=== PATIENT | male | born 1945 | race Caucasian/White ===

== ENCOUNTER 2022-06-06 13:46 | Outpatient (CLI) | payer MEDICARE, OTHER, SELFPAY ==
[2022-06-06 17:11] LABS: Albumin* 4.1 g/dL (3.3-5.0)
[2022-06-08 12:38] LABS: Prealbumin 18.5 mg/dL (20.0-40.0)
== END 2022-06-06 13:47 | disposition home or self-care (01) ==
LOC: WOUND 13:48
PROVIDERS: Visit Provider Surgery
DX: L89.312 Pressure ulcer of right buttock, stage 2 (principal); L89.212 Pressure ulcer of right hip, stage 2; G82.21 Paraplegia, complete; Z86.718 Personal history of other venous thrombosis and embolism; Z79.01 Long term (current) use of anticoagulants
CPT/HCPCS: 36415; 82040; 84134; 97597; 99204

== ENCOUNTER 2022-06-13 14:54 | Outpatient (CLI) | payer MEDICARE, OTHER, SELFPAY ==
--- OUTSIDE RECORDS SUMMARY | 2022-06-20 02:19 | XMS_ITS | Encounter Summary ---
:1945 Author Organization Department [facility] rs Address [address] [place] [id number] Support Name Relationship Address Phone WADE DEGROOT Unavailable [phone] [place] [address] WADE DEGROOT Unavailable [address] [place] [address] Insurance Providers: All historical and current Section Date Range: From patient's date of to the date document was created.This section includes the names of all active insurance providers for the patient. Insurance Type of Plan Start of End of Group Member Insurance Policy P atient's Provider Coverage Name Policy Policy Number ID Provider's Ford's Relationship Coverage Coverage Telephone Name to Policy Number [employer] MEDICARE MEDICARE PART Jul 12, PART B [id number] 800 VOEGELE,F P ATIENT (WNR) (M) B 2003 [id number] [phone] RED MEDICARE MEDICARE PART Oct 11, PART A [id number] 800 VOEGELE,F P ATIENT (WNR) (M) A 2001 [id number] [phone] RED Selected Encounter This section includes the information on record at [place] for the Encounter. Date/Time Encounter Type Encounter Description Reason Provider Source May 30, 2022 01:19 Outpatient Encounter ADMIN PAT ACTIVTIES PM (MASNONCT) IHE Encounter Template Text not used by [facility] Plan of Treatment: Future Appointments (+ 6 months) and Future Tests (+/- 45 days) The Plan of Treatment section includes future care activities for the patient from all [facility] treatmentfacilities. This section includes future appointments and future orders which are active, pending orscheduled.Future Appointments This section includes appointments that were scheduled to occur 6 months from the date of the Encounter, up to a maximum of 20 appointments. The data comes from all [facility] treatment facilities. Appointment Date/Time Appointment Type Appointment Facili ty Name Jun 07, 2022 10:30 AM [facility] Jun 07, 2022 02:30 PM [facility] Jun 12, 2022 07:00 AM AMBULATORY - NONE [facility] Jun 26, 2022 11:00 AM AMBULATORY - NONE [facility] Jun 27, 2022 02:00 PM [facility] Active, Pending, and Scheduled Orders This section includes a listing of several types of active, pending, and scheduled orders, including clinic medications orders, diagnostic test orders, procedure orders and consult orders; where the start date of the order is 45 days before the date of the Encounter or 45 days after the date of the Encounter. The data comes from all [facility] treatment facilities. Test Date/Time Test Type Test Details Facility Name Jun 04, 2022 03:35 PM Consult Order [facility] Cons [facility] Jun 08, 2022 03:40 PM Consult Order SCI/D OUTPT Cons Consultan t's [facility] Lab Results: +/- 30 days of the encounter This section includes the Chemistry and Hematology Lab Results on record with [facility] for the patient. Radiology Reports and Pathology Reports are provided separately, in subsequent sections.Lab Results This section contains the Chemistry/Hematology Results that were resulted 30 days before or 30 daysafter the date of the Encounter. Date/Time Source Result Type Result - Unit Interpretation Reference Range Comment May 28, 2022 03:31 [facility] COMPREHENSIVE METABOLIC Spec imen Type: PLASMA PM PANEL+MG No comment enter ed. Ordering Provid er: SHANTAL HANSON Report Released Date/Time: May 28, 2022 03:06 PM Reporting Lab: [facility] [address] [facility] [id number] Performing Lab: [facility] [address] [facility] [id number] CREATININE 0.7 0.7-1.2 UREA NITROGEN 13 8-26 GLUCOSE 98 74-100 SODIUM 138 136-145 POTASSIUM 4.4 3.5-5.1 CHLORIDE 102 98-107 CO2 28 22-29 CALCIUM 9.4 8.4-10.2 PROTEIN,TOTAL 7.6 6.0-8.3 ALBUMIN 4.0 3.5-5.2 BILIRUBIN, TOTAL 0.5 0.2-1.2 MAGNESIUM 2.1 1.6-2.6 ANION GAP 8 5-15 ALKALINE PHOSPHATASE 108 40-150 ALT/SGPT 27 <55 AST/SGOT 21 <34 CREAT EGFR(CKD-EPI) >90 >60 May 28, 2022 03:31 PM [facility] CBC Specimen Type: BLOOD No comment enter ed. Ordering Provid er: SHANTAL HANSON Report Released Date/Time: May 28, 2022 03:06 PM Reporting Lab: [facility] [address] [facility] [id number] Performing Lab: [facility] [address] WBC 6.27 4.0-11.0 RBC 4.43 L 4.6-6.2 HGB 12.9 L 13.5-17.9 HCT 40.2 L 41-54 MCV 90.7 80-100 MCH 29.1 27-33 MCHC 32.1 32.0-37.5 PLT 183 150-400 MPV 10.6 H 7.4-10.4 RDW 13.5 11.5-14.5 May 28, 2022 03:31 PM [facility] HEMOGLOBIN A1C Specimen Type: BLOOD No comment enter ed. Ordering Provid er: SHANTAL HANSON Report Released Date/Time: May 28, 2022 03:06 PM Reporting Lab: [facility] [address] [facility] [address] Performing Lab: [facility] [address] HEMOGLOBIN A1C 5.8 4.0-6.0 May 28, 2022 03:31 [facility] LIPID PANEL,NON-FASTING Spec imen Type: PLASMA PM No comment enter ed. Ordering Provid er: SHANTAL HANSON Report Released Date/Time: May 28, 2022 03:06 PM [facility] [address] Performing Lab: [facility] [address] CHOLESTEROL 116 <199 .HDL 39 L >40 LDL CALCULATION 64 <99 VLDL CALCULATION 13 <29 NON HDL CHOLESTEROL 77 <129 TRIG(NON FASTING) 63 <149 May 28, 2022 03:31 PM [facility] ANTI-HEP C(EIA) Specimen Type: SERUM No comment enter ed. Ordering Provid er: SHANTAL HANSON Report Released Date/Time: May 28, 2022 03:06 PM Reporting Lab: [facility] [address] [facility] [phone] Performing Lab: [facility] [address] [facility] [address] ANTI-HEP C(EIA) NEGATIVE NEGATIVE May 28, 2022 03:31 PM [facility] HIV AG/AB SCREEN Specimen Type: SERUM No comment enter ed. Ordering Provid er: SHANTAL HANSON Report Released Date/Time: May 28, 2022 03:06 PM Reporting Lab: [facility] [address] [facility] [address] Performing Lab: [facility] [address] [facility] [address] HIV AG/AB SCREEN NEGATIVE NEGATIVE May 28, 2022 03:31 [facility] TSH W/REFLEX TO FREE Specime n Type: PLASMA PM T4 No comment enter ed. Ordering Provid er: SHANTAL HANSON Report Released Date/Time: May 28, 2022 03:06 PM Reporting Lab: [facility] [address] [facility] [address] Performing Lab: [facility] [address] [facility] [address] TSH 2.42 0.35-4.94 Encounter Notes: All associated encounter notes This section contains the clinical notes associated to the Encounter. Date/Time Encounter Note(s) Provider Source May 30, 2022 01:19 PM TELEHEALTH NOTE: ROSHAN NIETO [facility] LOCAL TITLE: TELEHEALTH TECHNOLOGY SCREENING (T TS) STANDARD TITLE: TELEHEALTH NOTE DATE OF NOTE: MAY 30, 2022@13:19 ENTRY DATE: MAY 30, 2022@13:19:47 AUTHOR: ROSHAN NIETO EXP COSIGNER: URGENCY: STATUS: COMPLETED agrees to [facility] ([facility]) and has capability to complete a VVC visit. [place] has completed a test call or a VV C visit on his/her personal device. E-mail: [email or web address] Phone (texting): [phone] Device(s) they can use: iOS Device (iPhone or iP Aniika) Additional Information: [facility] is able to assist with VVC appoint ments. /le/ ROSHAN NIETO [employer]VANCED MSA Signed: 05/30/2022 13:21
--- OUTSIDE RECORDS SUMMARY | 2022-06-20 02:19 | XMS_ITS | Encounter Summary ---
:1945 Author Organization [facility] Address [address] [place] [id number] Support Name Relationship Address Phone WADE DEGROOT Unavailable [phone] [facility] [place] [address] WADE DEGROOT [phone] [facility] [address] Insurance Providers: All historical and current Section [...] MEDICARE MEDICARE PART Jul 12, PART B [id number] VOEGELE,F P ATIENT (WNR) (M) B 2003 [id number] [phone] RED MEDICARE MEDICARE PART Oct 11, PART A [id number] 800 VOEGELE,F P ATIENT (WNR) (M) A 2001 [id number] [phone] RED Selected Encounter This section includes the information on record at [facility] for the Encounter. 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 Date/Time Primary/Secondary Diagnosis Name Provider Source Diagnosis May 29, 2022 PRIMARY Malignant neoplasm BRITNEY HANSON 03:59 PM of spinal cord M [facility] May 29, 2022 SECONDARY Colostomy status BRITNEY HANSON A 03:59 PM M [facility] May 29, 2022 SECONDARY Depression, BRITNEY HANSON URIEL 03:59 PM unspecified M [facility] May 29, 2022 SECONDARY Encounter for BRITNEY HANSONA 03:59 PM general adult M [facility] medical exam w abnormal findings May 29, 2022 SECONDARY Encounter for JANETT RABAGO URI[facility] 03:59 PM immunization S [facility] May 29, 2022 SECONDARY Essential (primary) BRITNEY HANSON URI[facility] 03:59 PM hypertension M [facility] May 29, 2022 SECONDARY Hyperlipidemia, BRITNEY HANSON URI[facility] 03:59 PM unspecified M [facility] May 29, 2022 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) BRITNEY HANSON URI[facility] 03:59 PM use of M [facility] anticoagulants May 29, 2022 SECONDARY Opioid dependence, BRITNEY HANSON URI[facility] 03:59 PM uncomplicated M [facility] May 29, 2022 SECONDARY Paraplegia, BRITNEY HANSON [facility] 03:59 PM unspecified M [facility] May 29, 2022 SECONDARY Personal history of BRITNEY HANSON URIEL 03:59 PM other venous M [facility] thrombosis and embolism May 29, 2022 SECONDARY Presence of BRITNEY HANSON URIEL 03:59 PM urogenital implants M [facility] May 29, 2022 SECONDARY Type 2 diabetes BRITNEY HANSON URI[facility] 03:59 PM mellitus without M [facility] complications May 29, 2022 SECONDARY Unspecified dementia BRITNEY HANSON URI[facility] 03:59 PM without behavioral M [facility] disturbance May 29, 2022 SECONDARY Unspecified hearing BRITNEY HANSON URIEL 03:59 PM loss, unspecified M [facility] ear Plan of Treatment: Future Appointments (+ 6 months) and Future Tests (+/- 45 days) The Plan of Treatment section includes future care activities for the patient from all [place] treatmentfacilities. This section includes future appointments and future orders which are active, pending orscheduled.Future Appointments This section includes appointments that were scheduled to occur 6 months from the date of the Encounter, up to a maximum of 20 appointments. The data comes from all [place] treatment facilities. Appointment Date/Time Appointment Type Appointment Facili ty Name Jun 07, 2022 10:30 AM AMBULATORY - REHAB MEDICINE [facility] Jun 07, 2022 02:30 PM AMBULATORY - REHAB MEDIC[facility] Jun 12, 2022 07:00 AM AMBULATORY - NONE [facility] Jun 26, 2022 11:00 AM AMBULATORY - NONE [facility] Jun 27, 2022 02:00 PM AMBULATORY - REHAB MEDICINE [facility] Active, Pending, and Scheduled Orders This section includes a listing of several types of active, pending, and scheduled orders, including clinic medications orders, diagnostic test orders, procedure orders and consult orders; where the start date of the order is 45 days before the date of the Encounter or 45 days after the date of the Encounter. The data comes from all [place] treatment facilities. Test Date/Time Test Type Test Details Facility Name Jun 04, 2022 03:35 PM Consult Order [facility] CARE Cons Medical Claims Representative's Choice Jun 08, 2022 03:40 PM Consult Order SCI/D OUTPT Cons Consultan t's [facility] Choice Lab Results: +/- 30 days of the encounter This section includes the Chemistry and Hematology Lab Results on record with [place] for the patient. Radiology Reports and Pathology Reports are provided separately, in subsequent sections.Lab Results This section contains the Chemistry/Hematology Results that were resulted 30 days before or 30 daysafter the date of the Encounter. Date/Time Source Result Type Result - Unit Interpretation Reference Range Comment May 28, 2022 03:31 [facility] COMPREHENSIVE METABOLIC Spec imen Type: PLASMA PM PANEL+MG No comment enter ed. Ordering Provid er: BRITNEY HANSON Report Released Date/Time: May 28, 2022 03:06 PM Reporting Lab: [facility] [address] [facility] [address] Performing Lab: [facility] [address] [facility] [address] CREATININE 0.7 0.7-1.2 UREA NITROGEN 13 8-26 [...] No comment enter ed. Ordering Provid er: BRITNEY HANSON Report Released Date/Time: May 28, 2022 03:06 PM Reporting Lab: [facility] [address] Performing Lab: [facility] [address] WBC 6.27 4.0-11.0 RBC 4.43 L 4.6-6.2 HGB 12.9 L 13.5-17.9 HCT 40.2 L 41-54 MCV 90.7 80-100 MCH 29.1 27-33 MCHC 32.1 32.0-37.5 PLT 183 150-400 MPV 10.6 H 7.4-10.4 RDW 13.5 11.5-14.5 May 28, 2022 03:31 PM [facility] HEMOGLOBIN A1C Specimen Type: BLOOD No comment enter ed. Ordering Provid er: BRITNEY HANSON Report Released Date/Time: May 28, 2022 03:06 PM Reporting Lab: [facility] [address] Performing Lab: [facility] [address] HEMOGLOBIN A1C 5.8 4.0-6.0 May 28, 2022 03:31 [facility] LIPID PANEL,NON-FASTING Spec imen Type: PLASMA PM No comment enter ed. Ordering Provid er: BRITNEY HANSON Report Released Date/Time: May 28, 2022 03:06 PM Reporting Lab: [facility] [address] Performing Lab: [facility] [address] CHOLESTEROL 116 <199 .HDL 39 L >40 LDL CALCULATION 64 <99 VLDL CALCULATION 13 <29 NON HDL CHOLESTEROL 77 <129 TRIG(NON FASTING) 63 <149 May 28, 2022 03:31 PM [facility] ANTI-HEP C(EIA) Specimen Type: SERUM No comment enter ed. Ordering Provid er: BRITNEY HANSON Report Released Date/Time: May 28, 2022 03:06 PM Reporting Lab: [facility] [address] [facility] [address] Performing Lab: [facility] [address] [facility] [address] ANTI-HEP C(EIA) NEGATIVE NEGATIVE May 28, 2022 03:31 PM [facility] CB HIV AG/AB SCREEN Specimen Type: SERUM No comment enter ed. Ordering Provid er: BRITNEY HANSON Report Released Date/Time: May 28, 2022 03:06 PM Reporting Lab: [facility] [address] [facility] [address] Performing Lab: [facility] [address] [facility] [address] HIV AG/AB SCREEN NEGATIVE NEGATIVE May 28, 2022 03:31 [facility] TSH W/REFLEX TO FREE Specime n Type: PLASMA PM T4 No comment enter ed. Ordering Provid er: BRITNEY HANSON Report Released Date/Time: May 28, 2022 03:06 PM Reporting Lab: [facility] [address] [facility] [address] Performing Lab: [facility] [address] [facility] [address] TSH 2.42 0.35-4.94 Vital Signs: All taken on the encounter date This section contains inpatient and outpatient Vital Signs collected on the date of the Encounter. Date/Time Temperature Pulse Blood Respiratory SP02 Pain Height Weight Ye dy Source Pressure Rate Mass Index May 28, 96.2 F 80 104/67 14 /min 100 % 0 69 in 240 lb 36 2021 02:06 /min mm[Hg] URIEL PM [facility] Immunizations: All administered on the encounter date This section contains immunizations associated to the Encounter. Immunization Series Date Issued Reaction Comments TD (ADULT), 5 LF TETANUS TOXOID, PRESERVATIVE May 28, 2022 FREE, ADSORBED Social History: Smoking Status (Most current) and Tobacco Use (All prior to encounter date) This section includes the most current, and the historical, smoking and tobacco-related health factors from the [place] facility where the Encounter took place.Current Smoking Status This section includes the most current smoking, or tobacco-related health factor, from the DE facility where the Encounter took place. Date/Time Current Smoking Status Comment Facility May 28, 2022 02:00 PM VA-TOBACCO NEVER USED ALBE RT [facility] Encounter Notes: All associated encounter notes This section contains the clinical notes associated to the Encounter. Date/Time Encounter Note(s) Provider Source May 29, 2022 03:59 PM MEDICATION MGT NOTE: BRITNEY HANSON CB LOCAL TITLE: MEDICATION RECONCILIATION NOTE STANDARD TITLE: MEDICATION MGT NOTE DATE OF NOTE: MAY 29, 2022@15:59 ENTRY DATE: MAY 29, 2022@15:59:49 AUTHOR: BRITNEY HANSON EXP COSIGNER: URGENCY: STATUS: COMPLETED MEDICATION RECONCILIATION Active Outpatient Medications (excluding Supplie s): Non-VA Medications Status 1) Non-VA AMLODIPINE BESYLATE 10MG TAB 5MG MOUTH TWICE A ACTIVE DAY 2) Non-VA ARIPIPRAZOLE TAB 2MG MOUTH TWICE A DAY ACTIVE 3) Non-VA ATORVASTATIN CALCIUM 80MG TAB 40MG WAQAS TH EVERY ACTIVE DAY 4) Non-VA BACLOFEN 20MG TAB 20MG MOUTH FOUR TIME S A DAY ACTIVE 5) Non-VA BUPROPION HCL 150MG 12HR SA TAB 150MG MOUTH ACTIVE TWICE A DAY 6) Non-VA CEPHALEXIN 250MG CAP 250MG MOUTH EVERY DAY ACTIVE 7) Non-VA CHOLECALCIF 25MCG (D3-1,000UNIT) TAB 2 5MCG ACTIVE MOUTH EVERY DAY 8) Non-VA DONEPEZIL HCL 10MG TAB 5MG MOUTH EVERY DAY ACTIVE 9) Non-VA DULOXETINE HCL 30MG EC CAP 60MG MOUTH TWICE A ACTIVE DAY 10) Non-VA FAMOTIDINE 20MG TAB 20MG MOUTH TWICE A DAY ACTIVE 11) Non-VA FUROSEMIDE 40MG TAB 40MG MOUTH TWICE A DAY ACTIVE 12) Non-VA GABAPENTIN 400MG CAP 400MG MOUTH THRE E TIMES A ACTIVE DAY 13) Non-VA LORAZEPAM 0.5MG TAB 0.5MG MOUTH FOUR TIMES A ACTIVE DAY 14) Non-VA MILK OF MAGNESIA 30ML MOUTH EVERY DAY ACTIVE NEEDED 15) Non-VA MULTIVITAMIN CAP/TAB 1 TABLET MOUTH E VERY DAY ACTIVE 16) Non-VA OXYCODONE 5MG TAB 10MG MOUTH FOUR ROSE ES A DAY ACTIVE 17) Non-VA POTASSIUM CL 20MEQ SA TAB (DISPERSIBL E) 20MEQ ACTIVE MOUTH TWICE A DAY 18) Non-VA WARFARIN TAB 7.5MG MOUTH EVERY DAY AC TIVE Medications listed above are accurate and should continue as ordered. /el/ BRITNEY HANSON PA-C PHYSICIAN TAXI SERVICER [facility] TREVINO [facility] Signed: 05/29/2022 15:59 May 29, 2022 06:10 AM LETTERS: BRITNEY HANSON [facility] LOCAL TITLE: FOLLOW UP RESULTS LETTER STANDARD TITLE: LETTERS DATE OF NOTE: MAY 29, 2022@06:10 ENTRY DATE: MAY 29, 2022@06:10:49 AUTHOR: BRITNEY HANSON EXP COSIGNER: URGENCY: STATUS: COMPLETED [facility] [address] [place] [address] May JIE PARIKHEGELE [address] [facility] [address] Dear [place]: You should be receiving another letter with the results of [facility] I have reviewed the results and labs are OK/stab le. Continue other current medications and follow-up as directed. If you have further questions or problems, pleas e contact the call center at [phone] to speak with a nurse or leave me a message Sincerely, BRITNEY HANSON PA-C PHYSICIAN TAXI SERVICER SADAF LEA [facility] May 28, 2022 02:15 PM ACCOUNTING OF DISCLOSURES NOTE: JANNA HANSON [facility] LOCAL TITLE: STATE PRESCRIPTION DRUG MONITORING PROGRAM STANDARD TITLE: ACCOUNTING OF DISCLOSURES NOTE DATE OF NOTE: MAY 28, 2022@14:15:39 ENTRY DATE: MAY 28, 2022@14:15:39 AUTHOR: BRITNEY HANSON EXP COSIGNER: URGENCY: STATUS: COMPLETED This PDMP query was submitted by Britney Hanson. The clinical justification for this PDMP query i s to review controlled substances prescribed outside of the [facility], and any additional information that may become available, as an important compo nent of standard clinical care, and in accordance with [facility] policy. Patient information was shared with the PDMP [facility] [employer] [facility] [place]. Prescription(s) filled outside the VA are noted and will be addressed as follows: Will continue chronic pain management/controlled substance RX through nonVA provider. No controlled RX obtained through [place]. /el/ BRINTEY HANSON PA-C PHYSICIAN TAXI SERVICER [facility] Signed: 05/29/2022 16:00 May 28, 2022 02:10 PM H & P NOTE: BRITNEY HANSON [facility] LOCAL TITLE: CBOC ANNUAL VISIT STANDARD TITLE: H & P NOTE DATE OF NOTE: MAY 28, 2022@14:10 ENTRY DATE: MAY 28, 2022@14:11:01 AUTHOR: BRITNEY HANSON EXP COSIGNER: URGENCY: STATUS: COMPLETED Type of Visit: ANNUAL VISIT Reason for Visit: ANNUAL VISIT Non DE Providers: PCP Dr. Franklin Squires MD - [facility] HPI: 77 year old MALE with PMH of below medical conditions seen today to establish care with [facility]. Accompan ied by Wade who is primary care provider for paraplegic patient. Lopez s been receiving medical care with [facility] [place]. [facility] reviewed in [facility]. 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 He is on chronic oxycodone 10 mg tabs QID - receiving #120 tabs per month f rom nonVA PCP along with Lorazepam 0.5mg QID. Also receiving #120 tabs pe r month. Has hx pressure ulcers requiring wo und care and prior surgical intervention. Does have a suprapubic catheter in teresa ce. Goes to [facility] [place] every 3 weeks to have catheter changes. Remains on chronic anticoagulation with warfarin for chronic DVT. does home INR checks. These are managed by staff at [facility]. Reports overall feeling well today. Tolerating m edications without adverse effects. Denies recent illnesses or hospitalizat ions. Concerns: Main reason for today's visit is to re quest further care or home services through [place]. is primary care provid er and will be having rotator cuff surgery in the near future (planned for 06/11). They are also interested in other services available t o them through the [place]. They do plan to continue primary care with their current Mitzi Squires. Past Medical History: Active problems - Computerized Problem List is t he source for the followin. Dementia 2. COPD - Chronic Obstructive Pulmonary Disease (SCT 87597572) 3. Chronic Pain Syndrome (SCT 811708706) 4. HTN - Hypertension (SCT 82378706) 5. Hyponatremia 6. Anemia (SCT 228725743) 7. Supraventricular tachycardia 8. Diabetes Mellitus Type 2 (SCT 67272278) 9. Constipation (SCT 09075625) 10. 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 History of pressure injury 14. Abnormal liver function 15. History of Deep Vein Thrombosis (SCT 6566578 ) 16. Tinnitus (SCT 15891208) 17. Hearing Loss (SCT 23413557) 18. Long-term current use of anticoagulant 19. Osteoporosis (SCT 04899561) 20. Vitamin D Deficiency (SCT 1986588) 21. Hyperlipidemia (SCT 39347319) 22. Neurogenic Bladder (SCT 713612202) 23. Neurogenic bowel 24. Continuous opioid dependence 25. Anxiety (SCT 35481215) Past Surgical History: 1. Spinal Ependymoma excision x4 2. Suprapubic catheter 3. 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 Tobacco: Never smoked ETOH: None Recreational drugs: Denies Allergies: AMOXICILLIN (May 28, 2022) MORPHINE (May 28, 2022) SULFA DRUGS (May 28, 2022) METOLAZONE (May 28, 2022) PIPERACILLIN (May 28, 2022) TAZOBACTAM SODIUM (May 28, 2022) Review of System: NEGATIVE EXCEPT NOTED ABOVE Active Outpatient Medications (including Supplie s): Active Outpatient Medications Status 1) BAG,LEG CONVEEN #5170 USE 1 TOPICALLY DIRE CTED ACTIVE (S) 2) UNDERPAD,BED ULTRASORB [id number] M#3136 USE 1 P AD ACTIVE (S) TOPICALLY NEEDED 3) URINARY DRAINAGE BAG BARD #167455 USE BAG TOP ICALLY ACTIVE (S) DIRECTED Active Non-VA Medications Status 1) Non-VA AMLODIPINE BESYLATE 10MG TAB 5MG MOUTH TWICE A ACTIVE DAY 2) Non-VA ARIPIPRAZOLE TAB 2MG MOUTH TWICE A DAY ACTIVE 3) Non-VA ATORVASTATIN CALCIUM 80MG TAB 40MG WAQAS TH EVERY ACTIVE DAY 4) Non-VA BACLOFEN 20MG TAB 20MG MOUTH FOUR TIME S A DAY ACTIVE 5) Non-VA BUPROPION HCL 150MG 12HR SA TAB 150MG MOUTH ACTIVE TWICE A DAY 6) Non-VA CEPHALEXIN 250MG CAP 250MG MOUTH EVERY DAY ACTIVE 7) Non-VA CHOLECALCIF 25MCG (D3-1,000UNIT) TAB 2 5MCG ACTIVE MOUTH EVERY DAY 8) Non-VA DONEPEZIL HCL 10MG TAB 5MG MOUTH EVERY DAY ACTIVE 9) Non-VA DULOXETINE HCL 30MG EC CAP 60MG MOUTH TWICE A ACTIVE DAY 10) Non-VA FAMOTIDINE 20MG TAB 20MG MOUTH TWICE A DAY ACTIVE 11) Non-VA FUROSEMIDE 40MG TAB 40MG MOUTH TWICE A DAY ACTIVE 12) Non-VA GABAPENTIN 400MG CAP 400MG MOUTH THRE E TIMES A ACTIVE DAY 13) Non-VA LORAZEPAM 0.5MG TAB 0.5MG MOUTH FOUR TIMES A ACTIVE DAY 14) Non-VA MILK OF MAGNESIA 30ML MOUTH EVERY DAY ACTIVE NEEDED 15) Non-VA MULTIVITAMIN CAP/TAB 1 TABLET MOUTH E VERY DAY ACTIVE 16) Non-VA OXYCODONE 5MG TAB 10MG MOUTH FOUR ROSE ES A DAY ACTIVE 17) Non-VA POTASSIUM CL 20MEQ SA TAB (DISPERSIBL E) 20MEQ ACTIVE MOUTH TWICE A DAY 18) Non-VA WARFARIN TAB 7.5MG MOUTH EVERY DAY AC TIVE 21 Total Medications Physical Exam: Temperature: 96.2 F [35.7 C] (05/28/2022 14:06) Blood Pressure: 104/67 (05/28/2022 14:06) Pulse: 80 (05/28/2022 14:06) Respiration: 14 (05/28/2022 14:06) Pain: 0 (05/28/2022 14:06) Height: 69 in [175.3 cm] (05/28/2022 14:06) Weight: 240 lb [108.86 kg] (05/28/2022 14:06) Body Mass Index: 35.5 General: Alert, NAD; wheelchair bound Skin: No obvious rashes in areas seen HEENT: PERRLA, EOMI CV: S1 and S2 normal, RRR, no m/r/g Lungs: CTAB, no crackles, no wheezing. Normal re sp rate and effort Abd: soft, NT : deferred Extrem: 1+ bilat LE edema Neuro: paraplegia Mental: Normal mood and affect, cooperative Labs: PENDING Imaging: NONE TODAY Assessment/Plan: 1. ANNUAL VISIT 2. PARAPLEGIA 3. EPENDYMOMA 4. HX DVT 5. CHRONIC ANTICOAGULATION 6. NEUROGENIC BOWEL AND BLADDER 7. CHRONIC PAIN 8. DIABETES MELLITUS 9. HYPERTENSION 10. HYPERLIPIDEMIA 11. DEPRESSION 12. MILD DEMENTIA 13. GERD Labs pending Continue current medications - no changes today Medication renewals to be provided by nonVA pro vider Medication reconciliation completed with Vet Encouraged healthy lifestyle choices Diabetes education reviewed Current with retinal exam 10/26/21 Patient information folder for [facility] OC provided Information on comanage care provided and revie wed Contact information for local chief investment officer provided Directed to equipment service engineer for any potential c laims or benefits questions or concerns Will place referral for home health care per re quest Attach SW to note to reach out to family for ab ove concerns OT consult for home safety evaluation placed Pharmacy consult placed for suprapubic drainage bags Health maintenance recommendations reviewed Immunizations up to date Follow up with nonVA PCP as directed - Td given today RTC 1 year for annual visit or sooner as needed 14. HEARING LOSS Provided contact information for [place] audiology To arrange an appointment at their convenience RTC as needed Health Care Maintenance - Colon Cancer Screening: declines screening - AAA Screening (Age > 65-75) - 1 time f or men: 04/20/21 CT abd/pelvis ([facility]) - Lung Cancer Screening (Age 55-79) - Low Dose C T Chest for Lung Cancer Screening for those with smoking history: N/A - never smoked - Hepatitis C Screening: ORDERED - Vaccinations: No data available RTC in 12 MONTHS FOR ANNUAL VISIT. Total time spent with patient care including ivy rt review/diagnostic and testing review, patient inte rview/examination, counseling and documentation was 60 minutes Clinical Reminders: Diabetic Eye Screening: Patient declined eye exam at this encounter. Diabetic Foot Exam - Complete: Patient declined foot examination at this time. /el/ BRITNEY HANSON PA-C PHYSICIAN TAXI SERVICER [facility] Signed: 05/29/2022 15:59 Receipt Acknowledged By: * AWAITING SIGNATURE * JOVANY WORKMAN * AWAITING SIGNATURE * GIULIANA DOHERTY May 28, 2022 02:10 PM PRIMARY CARE NURSING NOTE: JANETT RABAGO [facility] LOCAL TITLE: CBOC NURSING PROGRESS NOTE STANDARD TITLE: PRIMARY CARE NURSING NOTE DATE OF NOTE: MAY 28, 2022@14:10 ENTRY DATE: MAY 28, 2022@14:10:40 AUTHOR: JANETT RABAGO EXP COSIGNER: URGENCY: STATUS: COMPLETED CBOC NURSING PROGRESS NOTE Has ADDENDA TYPE OF VISIT: Appointment Check In Type of appointment: In-person appointment REASON FOR VISIT: New Patient ALLERGIES: AMOXICILLIN (May 28, 2022) MORPHINE (May 28, 2022) SULFA DRUGS (May 28, 2022) METOLAZONE (May 28, 2022) PIPERACILLIN (May 28, 2022) TAZOBACTAM SODIUM (May 28, 2022) VITAL SIGNS: Blood Pressure: 104/67 (05/28/2022 14:06) Pulse: 80 (05/28/2022 14:06) Respiration: 14 (05/28/2022 14:06) Temperature: 96.2 F [35.7 C] (05/28/2022 14:06) Weight: 240 lb [108.86 kg] (05/28/2022 14:06) Height: 69 in [175.3 cm] (05/28/2022 14:06) BMI: 35.5 O2 Sat: 100% (05/28/2022 14:06) Pain: 0 (05/28/2022 14:06) PAIN SCREEN: Patient is having significant pain that they wo uld like to talk to their provider about today. Old (Chronic) (began more than 6 months ago) Patient states their average pain this past wee k is 6 Patient states the average number on how the ch ronic pain affects their enjoyment of life the past week is 6 Patient states during the past week the average number on how the pain has interfered with their general activity is 6 MEDICATION Active Outpatient Medications (including Suppli es): No Medications Found /es/ ALEIDA Gomez [facility] Signed: 05/28/2022 14:15 05/28/2022 ADDENDUM STATUS: COMPLETED COVID-19 Immunization: Pfizer COVID-19 Vaccine given previously Patient received a prior dose of the Pfizer COV ID-19 Vaccine. Date: January 02, 2021 [facility] received a prior dose of the Pfizer COV ID-19 Vaccine. Date: January 25, 2021 [facility] Patient received a prior dose of the Pfizer COV ID-19 Vaccine. Date: August 06, 2021 Series: Series 3 [facility] Tobacco Pack Year History: Patient never smoked cigarettes or smoked FEWER THAN 100 cigarettes/lifetime Tobacco Pack Year History: Patient never smoked cigarettes or smoked FEWER THAN 100 cigarettes/lifetime Suicide Screen: C-SSRS Screening [place] Suicide Severity Rating Scale (C-SSRS) screener 1. Over the past month, have you wished you wer e or wished you could go to sleep and not wake up? No 2. Over the past month, have you had any actual thoughts of killing yourself? No 3. Over the past month, have you been thinking about how you might do this? Response not required due to responses to other questions. 4. Over the past month, have you had these thou ghts and had some intention of acting on them? Response not required due to responses to other questions. 5. Over the past month, have you started to wor k out or worked out the details of how to kill yourself? Response not required due to responses to other questions. 6. If yes, at any time in the past month did yo u intend to carry out this plan? Response not required due to responses to other questions. 7. In your lifetime, have you ever done anythin g, started to do anything, or prepared to do anything to end you r life (for example, collected pills, obtained a gun, gave away valu wen, went to the roof but didn't jump)? No 8. If YES, was this within the past 3 months? Response not required due to responses to other questions. Depression Screening: Perform PHQ-2 A PHQ-2 screen was performed. The score was 0 w hich is a negative screen for depression. Over the past two weeks, how often have you bee n bothered by the following problems? 1. Little interest or pleasure in doing things Not at all 2. Feeling down, depressed, or hopeless Not at all Alcohol Use Screen (AUDIT-C): Alcohol Screen: SCREEN FOR ALCOHOL (AUDIT-C) An alcohol screening test (AUDIT-C) was negativ e (score=0). 1. How often did you have a drink containing al cohol in the past year? Never 2. How many drinks containing alcohol did you h ave on a typical day when you were drinking in the past year? Response not required due to responses to other questions. 3. How often did you have six or more drinks on one occasion in the past year? Response not required due to responses to other questions. MST Screening: Patient denies experiencing sexual tra lorin (MST). Tobacco Use Screening: The patient has never used tobacco. Homelessness/Food Insecurity Screen: In the past 2 months, have you been living in s table housing that you own, rent, or stay in as part of a household? Y es - Living in stable housing. Are you worried or concerned that in the next 2 months you may NOT have stable housing that you own, rent, or stay in a s part of a household? No - Not worried about housing near future The reports the following: Within the past 12 months, you worried whether your food would run out before you got money to buy more. Never true Within the past 12 months, the food you bought just didn't last and you didn't have money to get more. Never true Preferred Healthcare Language: Castalia's preferred language for discussing hea lth care: Chadian Influenza Immunization: The patient has received the seasonal influenza vaccine for the current season at another location. Date: September 03, 2021 Location: [facility] Herpes Zoster (Shingles) Vaccine: Prior Herpes Zoster vaccination The patient has previously received the herpes zoster vaccine with Zostavax. Date: March 23, 2013 Location: [facility] Written documentation: [facility] Tdap Immunization: Prior Tdap vaccination The patient has previously received the Tetanus , Diphtheria, Pertussis vaccine (Tdap). Date: June 28, 2011 Location: [facility] Comment: [facility] Pneumococcal Conjugate Vaccine (PCV15/PCV20): Prior pneumococcal vaccination The patient has previously received the pneumoc occal polysaccharide vaccine PPSV23 (Pneumovax). Date: August 13, 2011 Location: [facility] The patient has previously received the pneumoc occal conjugate vaccine PCV13 (Prevnar 13). Date: October 19, 2015 Location: [facility] Written documentation: [facility] PTSD Screening: PC-PTSD-5 A PTSD screening test (PC-PTSD-5) was negative (score=0). Have you ever had any experience that was so fr ightening, horrible or upsetting that, IN THE PAST MONTH, you: Have you ever experienced this kind of event? NO 1. Had nightmares about the event(s) or thought about the event(s) when you did not want to? Response not required due to responses to other questions. 2. Tried hard not to think about the event(s) o r went out of your way to avoid situations that reminded you of the ev ent(s)? Response not required due to responses to other questions. 3. Been constantly on guard, watchful, or easil y startled? Response not required due to responses to other questions. 4. [place] numb or detached from people, activitie s, or your surroundings? Response not required due to responses to other questions. 5. [place] guilty or unable to stop blaming yourse lf or others for the event(s) or any problems the event(s) may have caused? Response not required due to responses to other questions. Nursing Annual Screening: Fall History Screen During the past 12 months, have you had any fal ls? Patient does not report any falls in the past 1 2 months. MEDICATIONS: Patient does not have an active prescription fo r one of the following medications: Antihypertensives, Antidepressants , Antipsychotics, Diuretics, or Opioid Analgesics (Contolled Subs tance medications used for pain). FALL RISK ADVICE: Fall Risk Advice provided. Handout entitled Fa ll Prevention At Home reviewed and given to patient and/or significan kyle other. Alcohol Use Screen Alcohol Screen: SCREEN FOR ALCOHOL (AUDIT-C) An alcohol screening test (AUDIT-C) was negativ e (score=0). 1. How often did you have a drink containing al cohol in the past year? Never 2. How many drinks containing alcohol did you h ave on a typical day when you were drinking in the past year? Response not required due to responses to other questions. 3. How often did you have six or more drinks on one occasion in the past year? Response not required due to responses to other questions. Script Talk Screen Are you able to read your prescription bottles with your glasses, magnifiers or other aids? Yes or patient not taking any prescriptions. Skin Screen Patient reports any current pressure ulcers, a history of pressure ulcers, or a wound from a manager medical affairs or Patient is bed-confined or a wheelchair-user or Patient requires assistance to transfer/change position No, Skin Screen is Negative Home Abuse/Violence Screen Is your home free of abuse and violence? Yes Outpatient Nutrition Screen Body Mass Index (BMI)= 35.5 [place]: No data available [facility] Hgb A1C: No data available [place] Hgb A1C: No data available Point of Care Hgb A1C: POC HGB A1C____ Is patient's BMI less than 18.5? No Does patient have swallowing, coughing, or chew ing problems affecting oral intake? No Has patient experienced unplanned weight loss o r gain greater than 10 pounds over the last 2 months? No Is patient's Hgb A1C (Glycosylated Hemoglobin) greater than 9.5? No Is patient receiving Total Parenteral Nutrition (TPN) or Tube Feedings? No Patient Health Education Screen BARRIERS/SPECIAL NEEDS: No barriers identified PREFERRED STYLE OF LEARNING: Reading Client Assistive Service (TIM) Screen Does the patient require assistance with outpat ient visit? No /el/ ALEIDA Gomez Signed: 05/28/2022 15:26 05/28/2022 ADDENDUM STATUS: COMPLETED Td / Tdap Immunization: The patient received Tetanus/Diphtheria (Td) 0. 5ml IM today in Left Deltoid. Primary Health Care Nurse: [employer] Pasteur Lot # and Expiration Date: [id number], [id number] Administered by protocol/policy Complications: None The Tetanus/Diphtheria Vaccine (Td) Vaccine Inf ormation Sheet (VIS) was given to the patient today. VIS version date Jun. /ALEIDA Bains Signed: 05/28/2022 15:28
--- OUTSIDE RECORDS SUMMARY | 2022-06-20 02:19 | XMS_ITS | Encounter Summary ---
:1945 Author Organization [facility] Address [address] [place] [address] Support Name Relationship Address Phone WADE DEGROOT Unavailable [phone] [phone] WADE DEGROOT [phone] [phone] Insurance Providers: All historical and current Section [...] MEDICARE MEDICARE PART Jul 12, PART B [id number] 800 VOEGELE,F P ATIENT (WNR) (M) B 2003 PP47 [phone] RED MEDICARE MEDICARE PART Oct 11, PART A [id number] 800 VOEGELE,F P ATIENT (WNR) (M) A 2001 PP47 [phone] RED Selected Encounter This section includes the information on record at DC for the Encounter. Date/Time Encounter Type Encounter Description Reason Provider Source Jun 01, 2022 01:27 Outpatient Encounter PRIMARY CARE/MEDICINE PM IHE Encounter Template Text not used by DC Plan of Treatment: Future Appointments (+ 6 months) and Future Tests (+/- 45 days) The Plan of Treatment section includes future care activities for the patient from all DC treatmentfacilities. This section includes future appointments and future orders which are active, pending orscheduled.Future Appointments This section includes appointments that were scheduled to occur 6 months from the date of the Encounter, up to a maximum of 20 appointments. The data comes from all DC treatment facilities. Appointment Date/Time Appointment Type Appointment Facili ty Name Jun 07, 2022 10:30 AM AMBULATORY - REHAB MEDICINE [facility] Jun 07, 2022 02:30 PM AMBULATORY - REHAB MEDICINE [facility] Jun 12, 2022 07:00 AM AMBULATORY - NONE [facility] Jun 26, 2022 11:00 AM AMBULATORY - NONE [facility] Jun 27, 2022 02:00 PM AMBULATORY - REHAB MEDICINE [facility] Active, Pending, and Scheduled Orders This section includes a listing of several types of active, pending, and scheduled orders, including clinic medications orders, diagnostic test orders, procedure orders and consult orders; where the start date of the order is 45 days before the date of the Encounter or 45 days after the date of the Encounter. The data comes from all DC treatment facilities. Test Date/Time Test Type Test Details Facility Name Jun 04, 2022 03:35 PM Consult Order [facility] Timber S[facility] Jun 08, 2022 03:40 PM Consult Order SCI/D OUTPT Cons Consultan t's [facility] Lab Results: +/- 30 days of the encounter This section includes the Chemistry and Hematology Lab Results on record with DC for the patient. Radiology Reports and Pathology [...] May 28, 2022 03:06 PM Reporting Lab: [facility] [address] [facility] [address] Performing Lab: [facility] [address] [facility] [address] CREATININE 0.7 0.7-1.2 UREA NITROGEN 13 8-26 [...] May 28, 2022 03:06 PM Reporting Lab: [facility] [address] Performing Lab: [facility] [address] WBC 6.27 4.0-11.0 RBC 4.43 L 4.6-6.2 [...] May 28, 2022 03:06 PM Reporting Lab: [facility] [address] Performing Lab: [facility] [address] HEMOGLOBIN A1C 5.8 4.0-6.0 May 28, 2022 03:31 [facility] LIPID PANEL,NON-FASTING Spec imen Type: PLASMA PM No comment enter ed. Ordering Provid er: SHANTAL HANSON Report Released Date/Time: May 28, 2022 03:06 PM Reporting Lab: [facility] [address] Performing Lab: [facility] [address] CHOLESTEROL 116 <199 .HDL 39 L >40 LDL CALCULATION 64 <99 VLDL CALCULATION 13 <29 NON HDL CHOLESTEROL 77 <129 TRIG(NON FASTING) 63 <149 May 28, 2022 03:31 PM [facility] ANTI-HEP C(EIA) Specimen Type: SERUM No comment enter ed. Ordering Provid er: SHANTAL HANSON Report Released Date/Time: May 28, 2022 03:06 PM Reporting Lab: [facility] [address] [facility] [address] Performing Lab: [facility] [address] [facility] [address] ANTI-HEP C(EIA) NEGATIVE NEGATIVE May 28, 2022 03:31 PM [facility] HIV AG/AB SCREEN Specimen Type: SERUM No comment enter ed. Ordering Provid er: SHANTAL HANSON Report Released Date/Time: May 28, 2022 03:06 PM Reporting Lab: [facility] [address] [facility] [address] Performing Lab: [facility] [address] [facility] [address] HIV AG/AB SCREEN NEGATIVE NEGATIVE May 28, 2022 03:31 [facility] TSH W/REFLEX TO FREE Specime n Type: PLASMA PM T4 No comment enter ed. Ordering Provid er: SHANTAL HANSON Report Released Date/Time: May 28, 2022 03:06 PM Reporting Lab: [facility] [address] [facility] [address] Performing Lab: [facility] [address] [facility] [address] TSH 2.42 0.35-4.94 Encounter Notes: All associated encounter notes This section contains the clinical notes associated to the Encounter. Date/Time Encounter Note(s) Provider Source Jun 01, 2022 01:27 PM REPORT OF CONTACT: SEBASTIEN SANTIAGO LOCAL TITLE: PATIENT CONTACT NOTE STANDARD TITLE: REPORT OF CONTACT DATE OF NOTE: JUN 01, 2022@13:27 ENTRY DATE: JUN 01, 2022@13:27:42 AUTHOR: SEBASTIEN SANTIAGO EXP COSIGNER: URGENCY: STATUS: COMPLETED Patient contact Name of [place]: IJE DEGROOT Name/Relationship of Contact if other than Veter an: Date & Time of Contact: May@13:27 Type of Contact: Telephone Reason for Contact: Pt's calling, would lik e to talk with someone about [facility] assistance. Please call at to discuss. /el/ SEBASTIEN SANTIAGO Advanced Oncology Radiation Physician Signed: 06/01/2022 13:28 Receipt Acknowledged By: * AWAITING SIGNATURE * GLO ASIF
--- OUTSIDE RECORDS SUMMARY | 2022-06-20 02:19 | XMS_ITS | Encounter Summary ---
:1945 Author Organization [facility] Address [address] [place] [address] Support Name Relationship Address Phone WADE DEGROOT Unavailable [phone] [address] WADE DEGROOT Unavailable [phone] [phone] Insurance Providers: All historical and current Section Date Range: From patient's date of to the date document was created.This section includes the names of all active insurance providers for the patient. Insurance Type of Plan Start of End of Group Member Insurance Policy P atchito's Provider Coverage Name Policy Policy Number ID Provider's Ford's Relationship Coverage Coverage Telephone Name to Policy Number Ford MEDICARE MEDICARE PART Jul 12, PART B [id number] 800 Kasie DEGROOT (WNR) (M) B 2003 PP47 [phone] RED MEDICARE MEDICARE PART Oct 11, PART A [id number] 800 MIKAYLA,F Terry CHOE (WNR) (M) A 2001 [id number] [phone] RED Selected Encounter This section includes the information on record at MT for the Encounter. Date/Time Encounter Type Encounter Description Reason Provider Source IHE Encounter Template Text not used by MT
--- OUTSIDE RECORDS SUMMARY | 2022-06-20 02:19 | XMS_ITS | Encounter Summary ---
:1945 Author Organization [facility] Address [address] [place] [address] Support Name Relationship Address Phone WADE DEGROOT Unavailable [address] [phone] [address] [phone] Insurance Providers: All historical and current Section [...] MEDICARE MEDICARE PART Jul 12, PART B [id number] 800 VOEGELE,F P ATIENT (WNR) (M) B 2003 PP47 [phone] RED MEDICARE MEDICARE PART Oct 11, PART A [id number] 800 VOEGELE,F P ATIENT (WNR) (M) A 2001 [id number] [phone] RED Selected Encounter This section includes the information on record at DC for the Encounter. Date/Time Encounter Type Encounter Description Reason Provider Source Jun 04, 2022 10:18 Outpatient Encounter TELEPHONE PRIMARY CARE IHE Encounter Template Text not used by [...] 2022 10:30 AM [facility] Jun 07, 2022 02:30 PM AMBULATORY - [facility] MEDICINE [facility] Jun 12, 2022 07:00 AM AMBULATORY - NONE [facility] Jun 26, 2022 11:00 AM AMBULATORY - NONE [facility] Jun 27, 2022 02:00 PM AMBULATORY - REHAB MEDICINE [facility] Active, Pending, and Scheduled Orders This [...] Jun 04, 2022 03:35 PM Consult Order [facility] Device Sales Consultant's Choice Jun 08, 2022 03:40 PM Consult [...] May 28, 2022 03:06 PM Reporting Lab: [facility] [address] [facility] [address] Performing Lab: [facility] [address] [facility] [address] CREATININE 0.7 0.7-1.2 UREA NITROGEN 13 8-26 [...] May 28, 2022 03:06 PM Reporting Lab: [facility] [address] Performing Lab: [facility] [address] WBC 6.27 4.0-11.0 RBC 4.43 L 4.6-6.2 [...] May 28, 2022 03:06 PM Reporting Lab: [facility] [address] Performing Lab: [facility] [address] HEMOGLOBIN A1C 5.8 4.0-6.0 May 28, 2022 03:31 [facility] LIPID PANEL,NON-FASTING Spec imen Type: PLASMA PM No comment enter ed. Ordering Provid er: SHANTAL HANSON Report Released Date/Time: May 28, 2022 03:06 PM Reporting Lab: [facility] [address] Performing Lab: [facility] [address] CHOLESTEROL 116 <199 .HDL 39 L >40 LDL CALCULATION 64 <99 VLDL CALCULATION 13 <29 NON HDL CHOLESTEROL 77 <129 TRIG(NON FASTING) 63 <149 May 28, 2022 03:31 PM [facility] ANTI-HEP C(EIA) Specimen Type: SERUM No comment enter ed. Ordering Provid er: SHANTAL HANSON Report Released Date/Time: May 28, 2022 03:06 PM Reporting Lab: [facility] [address] [facility] [address] Performing Lab: [facility] [address] [facility] [address] ANTI-HEP C(EIA) NEGATIVE NEGATIVE May 28, 2022 03:31 PM [facility] HIV AG/AB SCREEN Specimen Type: SERUM No comment enter ed. Ordering Provid er: SHANTAL HANSON Report Released Date/Time: May 28, 2022 03:06 PM Reporting Lab: [facility] [address] [facility] [address] Performing Lab: [facility] [address] [facility] [address] HIV AG/AB SCREEN NEGATIVE NEGATIVE May 28, 2022 03:31 [facility] TSH W/REFLEX TO FREE Specime n Type: PLASMA PM T4 No comment enter ed. Ordering Provid er: SHANTAL HANSON Report Released Date/Time: May 28, 2022 03:06 PM Reporting Lab: [facility] [address] [facility] [address] Performing Lab: [facility] [address] [facility] [address] TSH 2.42 0.35-4.94 Encounter Notes: All associated encounter notes This section contains the clinical notes associated to the Encounter. Date/Time Encounter Note(s) Provider Source Jun 04, 2022 10:18 AM SOCIAL WORK NOTE: PAULA MARTINEZ [facility] LOCAL TITLE: SOCIAL WORK PROGRESS NOTE STANDARD TITLE: SOCIAL WORK NOTE DATE OF NOTE: JUN 04, 2022@10:18 ENTRY DATE: JUN 04, 2022@10:19:08 AUTHOR: PAULA MARTINEZ EXP COSIGNER: URGENCY: STATUS: COMPLETED Other Wood Processing Machine Operator sent e-mail to [facility] In quiry on this day 06/04/22 and received message back stating is EXEMPT from Asset Management Analyst Care c opayments. Reason for Exemption: COMPENSABLE SC DISABILITY This junior underwriter spoke with Woodrow's spouse- Wade on this day (06/04/22) at (17 minutes) regarding a cosign for lázaro e care and other benefits available. Wade- spouse stated that i s a paraplegic and will be needing home care as she (Wade) is having rot ator cuff surgery and will be unable to perform caregiving duties. Other Wood Processing Machine Operator info rmed her that Woodrow is eligible for home RN, [employer] and homemaker and is e xempt from co-pays. Wade- spouse verbalized understanding. Wade stated that Woodrow will need help with bathing, homemaking and changing the willie r on the suprapubic cath and need ostomy bag changes. Other Wood Processing Machine Operator also inf ormed her of the adult day health care benefit, respite options (adult day heal th care, community chcf and in home) and that each receives 30 days of respite each year. Wade- spouse verbalized understanding and stated she d idn't think would be interested in adult day heal th care but would keep in mind the respite options. We also discussed 's service connectedness. She stated they tried to get him an increase in rating but was told they need ed to have his paperwork that showed he had boots on the g round in [place] and they didn't know how or where to get that paperwork and the local person helpi ng them wasn't able to guide them. Other Wood Processing Machine Operator has a message out to benefi t team inquiring about how to go about this, PCSW awaiting response. PCSW to remain yessenia ilable. Plan: - PCSW kindly requests PACT RN to place consult for home RN, [employer] and homemereker /el/ Paula Martinez TURF MANAGER Primary Care Religious Studies Professor Signed: 06/04/2022 11:04 Receipt Acknowledged By: * AWAITING SIGNATURE * GLO ASIF * AWAITING SIGNATURE * GIULIANA DOHERTY
--- OUTSIDE RECORDS SUMMARY | 2022-06-20 02:19 | XMS_ITS | Continuity of Care Document ---
:1945 Author Organization [facility] Care Team Providers Name Role Phone [facility] Unavailable Unavailable Problems Combined list of problems from 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 It does not include entries that were removed or entered in error. 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 [facility] Chronic Pain Active Condition [facility] Syndrome (SCT [facility] 384894625) Colostomy present Active Condition [facility] Constipation (SCT Active Condition [facility] 54819492) [facility] Continuous opioid Active Condition [facility] dependence [facility] COPD - Chronic Active Condition GUSTAVO T [facility] Obstructive [facility] Pulmonary Disease (SCT 50878154) Dementia Active Condition [facility] Depression (SCT Active Condition ALBE RT URIEL 76705001) [facility] Diabetes Mellitus Active Condition [facility] Type 2 (SCT [facility] 54410971) 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 [facility] Hearing Loss (SCT Active Condition [facility] 40656695) [facility] History of Deep Vein Active Condition [facility] Thrombosis (SCT [facility] 566335634) History of pressure Active Condition [facility] injury [facility] HTN - Hypertension Active Condition A LBERT URIEL (SCT 43255300) [facility] Hyperlipidemia (SCT Active Condition [facility] URIEL 74672200) [facility] Hyponatremia Active Condition [facility] Long-term current Active Condition [facility] use of anticoagulant [facility] Neurogenic Bladder Active Condition A LBERT URIEL (SCT 147870465) [facility] Neurogenic bowel Active Condition ALB ERT URIEL [facility] Osteoporosis (SCT Active Condition AL [facility]ES [facility]EL 91162278) [facility] Paraplegia Active Condition [facility] LE A [facility]OC Suprapubic urinary Active Condition A [facility]ERT [facility] catheter in situ CBO C Supraventricular Active Condition ALB ERT [facility]EL tachycardia [facility] Tinnitus (SCT Active Condition [facility] TREVINO 83553804) [facility] Vitamin D Deficiency Active Condition SADAF TREVINO (SCT 9622857) [facility] Diagnosis: ICD-10-CM active Diagnosis [facility] R54 Age-related HCS physical debilitywith Provider Comments: Age-Related Physical Debility Diagnosis: ICD-10-CM active Diagnosis [facility] Z73.6 Limitation of HCS activities due to disabilitywith Provider Comments: Limitation of activities due to disability Diagnosis: ICD-10-CM active Diagnosis [facility] TREVINO 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 Medications provided include 1) outpatient medications from the last 15 months, and 2) patient-reported medications. Medication Details Route Status Patient Prescription Prescription Last Ordering Order Source Instructions Expires Number Dispense Provider Date Date ALBUTEROL Active [id number] MAGAN,TE 11/25/ Pharmac SULFATE HFA 2 RENCE 2021 y Data (albuterol Transac sulfate), tion 90 MCG, HFA Service AER AD, Facilit INHALATION, y LUPIN PHARMACEU, 8.5 g CANISTER AMLODIPINE Active [id number] MAGAN,TE 06/19 / Pharmac BESYLATE 1 RENCE 2020 y Data (AMLODIPINE Transac BESYLATE), tion 2.5 MG, Service TABLET, Facilit ORAL, y [facility], 90 ea. BOTTLE AMLODIPINE Active [id number] MAGAN,TE 09/10 / Pharmac BESYLATE 1 CE 2020 y Data (AMLODIPINE Transac BESYLATE), tion 2.5 MG, Service TABLET, Facilit ORAL, y [facility], 90 ea. BOTTLE AMLODIPINE Active [id number] MAGAN,TE 05/22 / Pharmac BESYLATE 1 CE 2020 y Data (AMLODIPINE Transac BESYLATE), tion 2.5 MG, Service TABLET, Facilit ORAL, y [facility], 90 ea. BOTTLE AMLODIPINE Active [id number] MAGAN,TE 02/09 / Pharmac BESYLATE 2 RENCE 2021 y Data (AMLODIPINE Transac BESYLATE), tion 5 MG, Service TABLET, Facilit ORAL, y [facility], 90 ea. BOTTLE AMLODIPINE Active [id number] MAGAN,TE 05/07 / Pharmac BESYLATE 2 RENCE 2021 y Data (AMLODIPINE Transac BESYLATE), tion 5 MG, Service TABLET, Facilit ORAL, y [facility], 90 ea. BOTTLE AMLODIPINE Active [id number] MAGAN,TE 10/13 / Pharmac BESYLATE 1 RENCE 2020 y Data (AMLODIPINE Transac BESYLATE), tion 5 MG, Service TABLET, Facilit ORAL, y [facility], 90 ea. BOTTLE AMLODIPINE TAKE ORALLY ACTIVE MARGIE,C 05/29/ AL JACQUES BESYLATE ONE-HALF ONNIE M 2021 [facility] 10MG TAB TABLET [facility] BY MOUTH TWICE A DAY ARIPIPRAZOL Active [id number] MAGAN,TE 04/01 / Pharmac E 1 RENCE 2020 y Data (aripiprazo Transac le), 2 MG, tion TABLET, Service ORAL, Facilit [facility] y [facility]ORAT[facility], 30 ea. BOTTLE ARIPIPRAZOL Active [id number] MAGAN,TE 09/07 / Pharmac E 1 RENCE 2020 y Data (aripiprazo Transac le), 2 MG, tion TABLET, Service ORAL, Facilit [facility] y [facility]AT[facility], 30 ea. BOTTLE ARIPIPRAZOL Active [id number] MAGAN,TE 09/07 / Pharmac E 1 RENCE 2020 y Data (aripiprazo Transac le), 2 MG, tion TABLET, Service ORAL, Facilit [facility] y [facility]ORAT[facility], 30 ea. BOTTLE ARIPIPRAZOL Active [id number] MAGAN,TE 08/12 Pharmac E 1 RENCE 2020 y Data (aripiprazo Transac le), 2 MG, tion TABLET, Service ORAL, Facilit [facility] y [facility]ORAT[facility], 30 ea. BOTTLE ARIPIPRAZOL Active [id number] MAGAN,TE / Pharmac E 2 RENCE 2021 y Data (aripiprazo Transac le), 2 MG, tion TABLET, Service ORAL, Facilit XLCARE y PHARMACE, 500 ea. BOTTLE ARIPIPRAZOL Active [id number] MAGAN,TE / Pharmac E 2 RENCE 2021 y Data (aripiprazo Transac le), 2 MG, tion TABLET, Service ORAL, Facilit XLCARE y PHARMACE, 500 ea. BOTTLE ARIPIPRAZOL TAKE 2MG ORALLY ACTIVE GRANDIA,C 05/29 / SADAF E TAB BY MOUTH ON2021 [facility] TWICE A CBOC DAY ATORVASTATI TAKE ORALLY ACTIVE GRANDIA,C 05/29/ A LBERT N CA 80MG ONE-HALF ON2021 [facility] TAB TABLET [facility] BY MOUTH EVERY DAY ATORVASTATI Active [id number] MAGAN,TE 11/11 5/ Pharmac N CALCIUM 2 RENCE 2021 y Data (atorvastat Transac in tion calcium), Service 40 MG, Facilit TABLET, y ORAL, [facility] [facility], 1000 ea. BOTTLE ATORVASTATI Active [id number] MAGAN,TE 03/11 0/ Pharmac N CALCIUM 2 RENCE 2021 y Data (atorvastat Transac in tion calcium), Service 40 MG, Facilit TABLET, y ORAL, [facility], 1000 ea. BOTTLE ATORVASTATI Active [id number] MAGAN,TE 08 6/ Pharmac N CALCIUM 2 RENCE 2021 y Data (atorvastat Transac in tion calcium), Service 40 MG, Facilit TABLET, y ORAL, [facility], 1000 ea. BOTTLE ATORVASTATI Active [id number] MAGAN,TE 11 4/ Pharmac N CALCIUM 1 RENCE 2020 y Data (atorvastat Transac in tion calcium), Service 40 MG, Facilit TABLET, y ORAL, [facility], 1000 ea. BOTTLE AZITHROMYCI Active [id number] MAGAN,TE 11/11 5/ Pharmac N 2 RENCE 2021 y Data (azithromyc Transac in), 250 tion MG, TABLET, Service ORAL, Facilit AUROBINDO y PHARM, 6 ea. BLIST PACK AZITHROMYCI Active [id number] MAGAN,TE / Pharmac N 2 RENCE 2021 y Data (azithromyc Transac in), 250 tion MG, TABLET, Service ORAL, Facilit [employer] 30 ea. BOTTLE BACLOFEN Active [id number] MAGAN,TE 05/24/ Pharmac (baclofen), 2 REN2021 y Data 20 MG, Transac TABLET, tion ORAL, Service MARLEX Facilit PHARM., y 1000 ea. BOTTLE BACLOFEN Active [id number] MAGAN,TE 09/18/ Pharmac (baclofen), 1 REN2020 y Data 20 MG, Transac TABLET, tion ORAL, Service TRUPHARMA, [employer] 100 y ea. BOTTLE BACLOFEN TAKE ONE ORALLY ACTIVE GRANDIA,C 05/29/ A LBERT 20MG TAB TABLET ONNI2021 [facility] BY MOUTH [facility] FOUR TIMES A DAY BUPROPION TAKE ONE ORALLY ACTIVE GRANDIA,C 05/29/ SADAF HCL 150MG TABLET NI2021 URIEL 12HR TAB,SA BY MOUTH [facility]OC TWICE A DAY BUPROPION Active [id number] MAGAN,TE 08/07 / Pharmac HCL SR 1 2020 y Data (bupropion Transac HCl), 150 tion MG, TAB SR Service 12H, ORAL, Facilit 'S y LAB, 500 ea. BOTTLE BUPROPION Active [id number] MAGAN,TE 11/25 / Pharmac HCL SR 2 2021 y Data (bupropion Transac HCl), 150 tion MG, TAB SR Service 12H, ORAL, Facilit PAVEL y PHARMACEU, 60 ea. BOTTLE BUPROPION Active [id number] MAGAN,TE 02/15 / Pharmac HCL SR 2 REN2021 y Data (bupropion Transac HCl), 150 tion MG, TAB SR Service 12H, ORAL, Facilit PAVEL y PHARMACEU, 60 ea. BOTTLE BUPROPION Active [id number] MAGAN,TE 05/22 / Pharmac HCL SR 2 2021 y Data (bupropion Transac HCl), 150 tion MG, TAB SR Service 12H, ORAL, Facilit PAVEL y PHARMACEU, 60 ea. BOTTLE BUPROPION Active [id number] MAGAN,TE 06/10 / Pharmac HCL SR 1 REN2020 y Data (bupropion Transac HCl), 150 tion MG, TAB SR Service 12H, ORAL, Facilit SANDOZ, 60 y ea. BOTTLE BUPROPION Active [id number] MAGAN,TE 05/02 / Pharmac HCL SR 1 2020 y Data (bupropion Transac HCl), 150 tion MG, TAB SR Service 12H, ORAL, Facilit SANDOZ, 60 y ea. BOTTLE BUPROPION Active [id number] MAGAN,TE 06/09/ Pharmac HCL SR 1 2020 y Data (bupropion Transac HCl), 150 tion MG, TAB SR Service 12H, ORAL, Facilit [facility]CO y [facility]ALTH[facility], 500 ea. BOTTLE CEPHALEXIN Active [id number] TAREEN,BA 12/04 / Pharmac (CEPHALEXIN 2 SIR 2021 y Data MONOHYDRATE Transac ), 250 MG, tion CAPSULE, Service ORAL, Facilit [facility]AT[facility], 100 ea. BOTTLE CEPHALEXIN Active [id number] TAREEN,BA 02/28 / Pharmac (CEPHALEXIN 2 SIR 2021 y Data MONOHYDRATE Transac ), 250 MG, tion CAPSULE, Service ORAL, Facilit [facility] y [facility]ORAT[facility], 100 ea. BOTTLE CEPHALEXIN Active [id number] TAREEN,BA 08/31 / Pharmac (CEPHALEXIN 1 SIR 2020 y Data MONOHYDRATE Transac ), 250 MG, tion CAPSULE, Service ORAL, Facilit ASCEND y LABORATO, 100 ea. BOTTLE CEPHALEXIN Active [id number] TAREEN,BA 06/09 / Pharmac (CEPHALEXIN 1 SIR 2020 y Data MONOHYDRATE Transac ), 250 MG, tion CAPSULE, Service ORAL, Facilit ASCEND y LABORATO, 100 ea. BOTTLE CEPHALEXIN Active [id number] MAGAN,TE 06/02 / Pharmac (CEPHALEXIN 2 RENCE 2021 y Data MONOHYDRATE Transac ), 250MG, tion CAPSULE, Service ORAL, TEVA Facilit [place], 100 y ea. BOTTLE CEPHALEXIN TAKE 1 ORALLY ACTIVE GRANDIA,C 05/29/ A LBERT 250MG CAP CAPSULE ONNIE 2021 [facility] BY MOUTH [facility] EVERY DAY CHOLECALCIF TAKE ONE ORALLY ACTIVE GRANDIA,C 05/29 / SADAF GILSON 25MCG TABLET ONNIE 2021 [facility] (1,000UNIT) BY MOUTH CBOC TAB EVERY DAY CIPROFLOXAC Active [id number] RICH,DI 02 4/ Pharmac IN HCL 1 DIDI 2021 y Data (ciprofloxa Transac amena HCl), tion 500 MG, Service TABLET, Facilit ORAL, y METHOD PHARMACE, 500 ea. BOTTLE DONEPEZIL Active [id number] MAGAN,TE 03/29/ Pharmac HCL 1 RENCE 2020 y Data (DONEPEZIL Transac HCL), 5 MG, tion TABLET, Service ORAL, SOLCO Facilit HEALTHCAR, y 30 ea. BOTTLE DONEPEZIL Active [id number] MAGAN,TE 02/18/ Pharmac HCL 2 RENCE 2021 y Data (DONEPEZIL Transac HCL), 5 MG, tion TABLET, Service ORAL, SOLCO Facilit HEALTHCAR, y 30 ea. BOTTLE DONEPEZIL Active [id number] MAGAN,TE 05/16/ Pharmac HCL 2 2021 y Data (DONEPEZIL Transac HCL), 5 MG, tion TABLET, Service ORAL, SOLCO Facilit HEALTHCAR, y 30 ea. BOTTLE DONEPEZIL Active [id number] MAGAN,TE 11/20/ Pharmac HCL 2 CE 2021 y Data (DONEPEZIL Transac HCL), 5 MG, tion TABLET, Service ORAL, SOLCO Facilit HEALTHCAR, y 30 ea. BOTTLE DONEPEZIL Active [id number] MAGAN,TE 08/24/ Pharmac HCL 1 CE 2020 y Data (DONEPEZIL Transac HCL), 5 MG, tion TABLET, Service ORAL, SOLCO Facilit HEALTHCAR, y 30 ea. BOTTLE DONEPEZIL Active [id number] MAGAN,TE 06/05/ Pharmac HCL 1 RENCE 2020 y Data (DONEPEZIL Transac HCL), 5 MG, tion TABLET, Service ORAL, SOLCO Facilit HEALTHCAR, y 30 ea. BOTTLE DONEPEZIL Active [id number] MAGAN,TE 05/03/ Pharmac HCL 1 RENCE 2020 y Data (DONEPEZIL Transac HCL), 5 MG, tion TABLET, Service ORAL, SOLCO Facilit HEALTHCAR, y 30 ea. BOTTLE DONEPEZIL TAKE ORALLY ACTIVE MARGIEC 05/29/ ALB ERT HCL 10MG ONE-HALF ONNIE 2021 [facility] TAB TABLET [facility] BY MOUTH EVERY DAY DULOXETINE Active [id number] MAGAN,TE 06/12 9/ Pharmac HCL 1 2020 y Data (DULOXETINE Transac HCL), 60 tion MG, CAPSULE Service , ORAL, Facilit [employer] y 1000 ea. BOTTLE DULOXETINE Active [id number] MAGAN,TE 11/13 1/ Pharmac HCL 1 2021 y Data (DULOXETINE Transac HCL), 60 tion MG, CAPSULE Service , ORAL, Facilit [employer] y 1000 ea. BOTTLE DULOXETINE Active [id number] MAGAN,TE 8/ Pharmac HCL 2 2021 y Data (DULOXETINE Transac HCL), 60 tion MG, CAPSULE Service , ORAL, Facilit [employer] y 1000 ea. BOTTLE DULOXETINE Active [id number] MAGAN,TE 04/12 3/ Pharmac HCL 2 2021 y Data (DULOXETINE Transac HCL), 60 tion MG, CAPSULE Service , ORAL, Facilit [employer] y 1000 ea. BOTTLE DULOXETINE Active [id number] MAGAN,TE 03/12 6/ Pharmac HCL 1 2020 y Data (DULOXETINE Transac HCL), 60 tion MG, CAPSULE Service , ORAL, [facility] [employer] y 1000 ea. BOTTLE DULOXETINE TAKE 2 ORALLY ACTIVE GRANDIA,C 05/29/ A LBERT HCL 30MG CAPSULES NI2021 URI[facility] CAP,EC BY MOUTH [facility]OC TWICE A DAY FAMOTIDINE Active [id number] MAGAN,TE 11/11 5/ Pharmac (famotidine 2 2021 y Data ), 20 MG, Transac TABLET, tion ORAL, PD-RX Service PHARM, 90 Facilit ea. BOTTLE y FAMOTIDINE Active [id number] MAGAN,TE 03/11 6/ Pharmac (famotidine 2 2021 y Data ), 20 MG, Transac TABLET, tion ORAL, PD-RX Service PHARM, 90 Facilit ea. BOTTLE y FAMOTIDINE TAKE ONE ORALLY ACTIVE GRANDIA,C 05/29/ SADAF 20MG TAB TABLET ONNIE M 2021 [facility] BY MOUTH [facility] TWICE A DAY FLUTICASONE Active [id number] MAGAN,TE / Pharmac PROPIONATE 2 RENCE 2021 y Data (FLUTICASON Transac E tion PROPIONATE) Service , 50 MCG, Facilit SPRAY SUSP, y NASAL, [employer] 16 g AER W/ADAP FLUTICASONE Active [id number] MAGAN,TE 11/11 5 Pharmac PROPIONATE 2 RENCE 2021 y Data (FLUTICASON Transac E tion PROPIONATE) Service , 50MCG, Facilit SPRAY SUSP, y NASAL, [facility] 16 g AER W/ADAP FUROSEMIDE Active [id number] MAGAN,TE 02/21 / Pharmac (furosemide 2 RENCE 2021 y Data ), 40 MG, Transac TABLET, tion ORAL, [employer] [facility], Facilit 1000 ea. y BOTTLE FUROSEMIDE Active [id number] MAGAN,TE 07/29 / Pharmac (furosemide 1 RENCE 2020 y Data ), 40 MG, Transac TABLET, tion ORAL, [employer], Facilit 1000 ea. y BOTTLE FUROSEMIDE Active [id number] MAGAN,TE 11/29 / Pharmac (furosemide 2 RENCE 2021 y Data ), 40 MG, Transac TABLET, tion ORAL, [employer], Facilit 1000 ea. y BOTTLE FUROSEMIDE Active [id number] MAGAN,TE 06/13 / Pharmac (FUROSEMIDE 2 RENCE 2021 y Data ), 40MG, Transac TABLET, tion ORAL, Service BHUMI Facilit LABS., 1000 y ea. BOTTLE FUROSEMIDE TAKE ONE ORALLY ACTIVE GRANDIA,C 05/29/ SADAF 40MG TAB TABLET ONNIE M 2021 [facility] BY MOUTH [facility]OC TWICE A DAY GABAPENTIN Active [id number] MAGAN,TE 5 Pharmac (gabapentin 2 RENCE 2021 y Data ), 400 MG, Transac CAPSULE, tion ORAL, [employer] 500 Facilit ea. BOTTLE y GABAPENTIN Active [id number] MAGAN,TE 03/11 6/ Pharmac (gabapentin 2 RENCE 2021 y Data ), 400 MG, Transac CAPSULE, tion ORAL, [employer] 500 Facilit ea. BOTTLE y GABAPENTIN Active [id number] MAGAN,TE 12/14 / Pharmac (GABAPENTIN 1 2021 y Data ), 400 MG, Transac CAPSULE, tion ORAL, Service [employer] Facilit RX LL, 100 y ea. BOTTLE GABAPENTIN TAKE 1 ORALLY ACTIVE Jey HANSON A LBERT 400MG CAP CAPSULE ONALAINAE M 2021 [facility] BY MOUTH CBOC THREE TIMES A DAY LORAZEPAM Active [id number] MAGAN,TE 05/16/ Pharmac (lorazepam) 2 2021 y Data , 0.5 MG, Transac TABLET, tion ORAL, Service AUROBINDO Facilit PHARM, 500 y ea. BOTTLE LORAZEPAM Active [id number] MAGAN,TE 06/19/ Pharmac (lorazepam) 2 2021 y Data , 0.5 MG, Transac TABLET, tion ORAL, Service AUROBINDO Facilit PHARM, 500 y ea. BOTTLE LORAZEPAM Active [id number] MAGAN,TE 01/20/ Pharmac (lorazepam) 2 2021 y Data , 0.5 MG, Transac TABLET, tion ORAL, Service AUROBINDO Facilit PHARM, 500 y ea. BOTTLE LORAZEPAM Active [id number] MAGAN,TE 02/28/ Pharmac (lorazepam) 2 2021 y Data , 0.5 MG, Transac TABLET, tion ORAL, Service AUROBINDO Facilit PHARM, 500 y ea. BOTTLE LORAZEPAM Active [id number] MAGAN,TE 04/14/ Pharmac (lorazepam) 2 2021 y Data , 0.5 MG, Transac TABLET, tion ORAL, Service AUROBINDO Facilit PHARM, 500 y ea. BOTTLE LORAZEPAM Active [id number] MAGAN,TE 09/22/ Pharmac (lorazepam) 1 2020 y Data , 0.5 MG, Transac TABLET, tion ORAL, Service AUROBINDO Facilit PHARM, 500 y ea. BOTTLE LORAZEPAM Active [id number] MAGAN,TE 10/28/ Pharmac (lorazepam) 1 2020 y Data , 0.5 MG, Transac TABLET, tion ORAL, Service AUROBINDO Facilit PHARM, 500 y ea. BOTTLE LORAZEPAM Active [id number] MAGAN,TE 12/17/ Pharmac (lorazepam) 2 2021 y Data , 0.5 MG, Transac TABLET, tion ORAL, Service AUROBINDO Facilit PHARM, 500 y ea. BOTTLE LORAZEPAM Active [id number] MAGAN,TE 05/30/ Pharmac (lorazepam) 1 2020 y Data , 0.5 MG, Transac TABLET, tion ORAL, Service AUROBINDO Facilit PHARM, 500 y ea. BOTTLE LORAZEPAM Active [id number] MAGAN,TE 07/06/ Pharmac (lorazepam) 1 2020 y Data , 0.5 MG, Transac TABLET, tion ORAL, Service AUROBINDO Facilit PHARM, 500 y ea. BOTTLE LORAZEPAM Active [id number] MAGAN,TE 08/07/ Pharmac (lorazepam) 1 2020 y Data , 0.5 MG, Transac TABLET, tion ORAL, Service AUROBINDO Facilit PHARM, 500 y ea. BOTTLE LORAZEPAM TAKE ONE ORALLY ACTIVE GRANDIA,C 05/29/ SADAF 0.5MG TAB TABLET ONNIE M 2021 [facility] BY MOUTH CBOC FOUR TIMES A DAY MILK OF TAKE ORALLY ACTIVE GRANDIA,C 05/29/ GUSTAVO T MAGNESIA 30ML BY ONNIE M 2021 URI[facility] MOUTH CBOC EVERY DAY NEEDED MULTIVITAMI TAKE ONE ORALLY ACTIVE GRANDIA,C 05/29 / SADAF NS CAP/TAB TABLET ONNIE M 2021 URI[facility] BY MOUTH CBOC EVERY DAY NITROFURANT Active [id number] MAGAN,TE 12/12 1/ Pharmac OIN 2 2021 y Data MACROCRYSTA Transac L tion (NITROFURAN Service TOIN/NITROF Facilit URAN MAC), y 100MG, CAPSULE, ORAL, [facility], 100 ea. BOTTLE OXYCODONE Active [id number] BYRD,OR 06/11/ Pharmac HCL 2 VIDAL2021 y Data (OXYCODONE Transac HCL), 10 tion MG, TABLET, Service ORAL, Facilit DE JESUS y PHARMACE, 100 ea. BOTTLE OXYCODONE Active [id number] MAGAN,TE 05/11/ Pharmac HCL 2 2021 y Data (OXYCODONE Transac HCL), 10 tion MG, TABLET, Service ORAL, Facilit DE JESUS y PHARMACE, 100 ea. BOTTLE OXYCODONE Active [id number] MAGAN,TE 04/09/ Pharmac HCL 2 2021 y Data (OXYCODONE Transac HCL), 10 tion MG, TABLET, Service ORAL, Facilit DE JESUS y PHARMACE, 100 ea. BOTTLE OXYCODONE Active [id number] MAGAN,TE 03/21/ Pharmac HCL 2 2021 y Data (OXYCODONE Transac HCL), 10 tion MG, TABLET, Service ORAL, Facilit DE JESUS y PHARMACE, 100 ea. BOTTLE OXYCODONE Active [id number] MAGAN,TE 02/21/ Pharmac HCL 2 2021 y Data (OXYCODONE Transac HCL), 10 tion MG, TABLET, Service ORAL, Facilit DE JESUS y PHARMACE, 100 ea. BOTTLE OXYCODONE Active [id number] MAGAN,TE 02/09/ Pharmac HCL 2 2021 y Data (OXYCODONE Transac HCL), 10 tion MG, TABLET, Service ORAL, Facilit DE JESUS y PHARMACE, 100 ea. BOTTLE OXYCODONE Active [id number] MAGAN,TE 02/03/ Pharmac HCL 2 2021 y Data (OXYCODONE Transac HCL), 10 tion MG, TABLET, Service ORAL, Facilit DE JESUS y PHARMACE, 100 ea. BOTTLE OXYCODONE Active [id number] MAGAN,TE 11/25/ Pharmac HCL 2 2021 y Data (OXYCODONE Transac HCL), 10 tion MG, TABLET, Service ORAL, Facilit DE JESUS y PHARMACE, 100 ea. BOTTLE OXYCODONE Active [id number] MAGAN,TE 05/30/ Pharmac HCL 1 2020 y Data (OXYCODONE Transac HCL), 10 tion MG, TABLET, Service ORAL, Facilit DE JESUS y PHARMACE, 100 ea. BOTTLE OXYCODONE Active [id number] MAGAN,TE 04/01/ Pharmac HCL 1 2020 y Data (OXYCODONE Transac HCL), 10 tion MG, TABLET, Service ORAL, Facilit DE JESUS y PHARMACE, 100 ea. BOTTLE OXYCODONE TAKE TWO ORALLY ACTIVE MARGIE,C 05/29/ SADAF HCL 5MG TAB TABLETS ONNIE M 2021 [facility] BY MOUTH CBOC FOUR TIMES A DAY OXYCONTIN Active [id number] MAGAN,TE 03/20/ Pharmac (OXYCODONE 1 RENCE 2020 y Data HCL), 15 Transac MG, TAB ER tion 12H, ORAL, Service PURDUE Facilit PHARMA L, y 100 ea. BOTTLE OXYCONTIN Active [id number] MAGAN,TE 09/22/ Pharmac (OXYCODONE 1 RENCE 2020 y Data HCL), 15 Transac MG, TAB ER tion 12H, ORAL, Service PURDUE Facilit PHARMA L, y 100 ea. BOTTLE OXYCONTIN Active [id number] MAGAN,TE 08/22/ Pharmac (OXYCODONE 1 RENCE 2020 y Data HCL), 15 Transac MG, TAB ER tion 12H, ORAL, Service PURDUE Facilit PHARMA L, y 100 ea. BOTTLE OXYCONTIN Active [id number] MAGAN,TE 07/23/ Pharmac (OXYCODONE 1 RENCE 2020 y Data HCL), 15 Transac MG, TAB ER tion 12H, ORAL, Service PURDUE Facilit PHARMA L, y 100 ea. BOTTLE OXYCONTIN Active [id number] MAGAN,TE 06/28/ Pharmac (OXYCODONE 1 RENCE 2020 y Data HCL), 15 Transac MG, TAB ER tion 12H, ORAL, Service PURDUE Facilit PHARMA L, y 100 ea. BOTTLE OXYCONTIN Active [id number] MAGAN,TE 05/30/ Pharmac (OXYCODONE 1 RENCE 2020 y Data HCL), 15 Transac MG, TAB ER tion 12H, ORAL, Service PURDUE Facilit PHARMA L, y 100 ea. BOTTLE OXYCONTIN Active [id number] MAGAN,TE 04/24/ Pharmac (OXYCODONE 1 RENCE 2020 y Data HCL), 15 Transac MG, TAB ER tion 12H, ORAL, Service PURDUE Facilit PHARMA L, y 100 ea. BOTTLE OXYCONTIN Active [id number] MAGAN,TE 10/03/ Pharmac (OXYCODONE 1 RENCE 2020 y Data HCL), 30 Transac MG, TAB ER tion 12H, ORAL, Service PURDUE Facilit PHARMA L, y 100 ea. BOTTLE OXYCONTIN Active [id number] MAGAN,TE 09/04/ Pharmac (OXYCODONE 1 RENCE 2020 y Data HCL), 30 Transac MG, TAB ER tion 12H, ORAL, Service PURDUE Facilit PHARMA L, y 100 ea. BOTTLE OXYCONTIN Active [id number] MAGAN,TE Pharmac (OXYCODONE 1 RENCE 2020 y Data HCL), 30 Transac MG, TAB ER tion 12H, ORAL, Service PURDUE Facilit PHARMA L, y 100 ea. BOTTLE OXYCONTIN Active [id number] MAGAN,TE Pharmac (OXYCODONE 1 RENCE 2020 y Data HCL), 30 Transac MG, TAB ER tion 12H, ORAL, Service PURDUE Facilit PHARMA L, y 100 ea. BOTTLE OXYCONTIN Active [id number] MAGAN,TE Pharmac (OXYCODONE 1 RENCE 2020 y Data HCL), 30 Transac MG, TAB ER tion 12H, ORAL, Service PURDUE Facilit PHARMA L, y 100 ea. BOTTLE OXYCONTIN Active [id number] MAGAN,TE Pharmac (OXYCODONE 1 RENCE 2020 y Data HCL), 30 Transac MG, TAB ER tion 12H, ORAL, Service PURDUE Facilit PHARMA L, y 100 ea. BOTTLE OXYCONTIN Active [id number] MAGAN,TE Pharmac (OXYCODONE 1 RENCE 2020 y Data HCL), 30 Transac MG, TAB ER tion 12H, ORAL, Service PURDUE Facilit PHARMA L, y 100 ea. BOTTLE POTASSIUM Active [id number] MAGAN,TE 07/09/ Pharmac CHLORIDE 1 RENCE 2020 y Data (potassium Transac chloride), tion 20 MEQ, TAB Service ER PRT, Facilit ORAL, y AVKARE, 500 ea. BOTTLE POTASSIUM Active [id number] MAGAN,TE 10/16 / Pharmac CHLORIDE 1 2020 y Data (potassium Transac chloride), tion 20 MEQ, TAB Service ER PRT, Facilit ORAL, y AVKARE, 500 ea. BOTTLE POTASSIUM Active [id number] MAGAN,TE 03/26 / Pharmac CHLORIDE 2 REN2021 y Data (potassium Transac chloride), tion 20 MEQ, TAB Service ER PRT, Facilit ORAL, y XLCARE PHARMACE, 100 ea. BOTTLE POTASSIUM TAKE ONE ORALLY ACTIVE GRANDIA,C 05/29/ SADAF CHLORIDE TABLET ONNIE 2021 [facility] 20MEQ BY MOUTH CBOC TAB,SA TWICE A (DISPERSIBL DAY ) PROAIR HFA Active [id number] MAGAN,TE 11/11/ Pharmac (ALBUTEROL 2 2021 y Data SULFATE), Transac 90 MCG, HFA tion AER AD, Service INHALATION, Facilit TEVA y SPECIALTY, 8.5 g CANISTER WARFARIN Active [id number] MAGAN,TE 03/27/ Pharmac SODIUM 2 2021 y Data (WARFARIN Transac SODIUM), 5 tion MG, TABLET, Service ORAL, TEVA Facilit [place], 100 y ea. BOTTLE WARFARIN Active [id number] MAGAN,TE 09/04/ Pharmac SODIUM 1 2020 y Data (WARFARIN Transac SODIUM), 5 tion MG, TABLET, Service ORAL, TEVA Facilit [place], 100 y ea. BOTTLE WARFARIN Active [id number] MAGAN,TE 06/21/ Pharmac SODIUM 1 2020 y Data (WARFARIN Transac SODIUM), 5 tion MG, TABLET, Service ORAL, TEVA [facility]ilit [place], 100 y ea. BOTTLE WARFARIN Active [id number] MAGAN,TE 05/17/ Pharmac SODIUM 2 CE 2021 y Data (warfarin Transac sodium), tion 7.5 MG, Service TABLET, Facilit ORAL, TEVA y [place], 100 ea. BOTTLE WARFARIN Active [id number] MAGAN,TE 02/14/ Pharmac SODIUM 2 CE 2021 y Data (warfarin Transac sodium), tion 7.5 MG, Service TABLET, Facilit ORAL, TEVA y [place], 100 ea. BOTTLE WARFARIN Active [id number] MAGAN,HEBER 11/01/ Pharmac SODIUM 1 RENCE 2020 y Data (warfarin Transac sodium), tion 7.5 MG, Service TABLET, Facilit ORAL, TEVA y [place], 100 ea. BOTTLE WARFARIN TAKE ORALLY ACTIVE Jey HANSON 05/29/ KATERINA RT TAB 7.5MG BY DEANNIKKY [place] 2021 [facility] EVERY DAY Allergies, Adverse Reactions, Alerts Combined list of allergies from 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 It does not include entries that were removed or entered in error. Substance Category Reaction Severity Reaction Status Date Comments S ource type Reported AMOXICILLIN Propensity Eruption Propensity active [place] to adverse to adverse 2 [facility] reactions reactions [facility] to drug to drug (finding) (finding) METOLAZONE Propensity Itching Propensity active [place] to adverse to adverse 2 [facility] reactions reactions [facility] to drug to drug (finding) (finding) MORPHINE Propensity Delirium Propensity active [place] to adverse to adverse 2 [facility] reactions reactions [facility] to drug to drug (finding) (finding) PIPERACILLIN Propensity Eruption Propensity active [place] to adverse to adverse 2 LI S [facility] reactions reactions [facility] to drug to drug (finding) (finding) SULFA DRUGS Propensity Eruption Propensity active [place] to adverse to adverse 2 LI S [facility] reactions reactions HCS to drug to drug (finding) (finding) TAZOBACTAM Propensity Eruption Propensity active [place] SODIUM to adverse to adverse 2 LI S VA reactions reactions HCS to drug to drug (finding) (finding) Immunizations Combined list of available immunizations from the 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 Immunization Series Date Administered Site Reaction Lot CVX Drug St atus Comments Source Given By Number Code [employer] Supervisor TD (ADULT), 5 complet SADAF LF TETANUS 2021 ed URIEL TOXOID, CBOC PRESERVATIVE FREE, ADSORBED INFLUENZA, complet [place] UNSPECIFIED 2020 ed [place] [facility] FORMULATION HC S COVID-19 3 complet [place] ([employer]), 2020 ed [place] [facility] MRNA, LNP-S, H CS PF, 30 MCG/0.3 ML DOSE COVID-19 2 complet [place] ([employer]), 2020 ed [place] [facility] MRNA, LNP-S, H CS PF, 30 MCG/0.3 ML DOSE COVID-19 1 complet [place] ([employer]), 2020 ed [place] [facility] MRNA, LNP-S, H CS PF, 30 MCG/0.3 ML DOSE PNEUMOCOCCAL complet [facility] [place] CONJUGATE PCV 2014 ed [facility] [facility] 13 HCS ZOSTER LIVE complet [facility] [place] 2012 ed [facility] PNEUMOCOCCAL complet [place] POLYSACCHARID 2010 ed [facility] E PPV23 HCS TDAP complet [facility] [place] 2010 ed [place] HCS Results Combined list of recent chemistry, hematology and other laboratory results from Department of Defense and Veterans Affairs, ranging from 15 months to all on record, depending upon the facility. Order Results Value Reference Date Interpretation Specimen Commen ts Source Name Range ANTI-HEP HEPATITIS C NEGATIVE 05/28 Specimen T ype: SERUM SADAF C(EIA) VIRUS AB /2021 No comment ente red. URIEL [PRESENCE] Ordering Pro vider: SHANTAL HASNON [facility] IN SERUM Report Release d Date/Time: May 28, 2022 03:06 PM Reporting Lab: [facility] [address] [place] [address] Performing Lab: [facility] [address] [place] [address] CBC LEUKOCYTES 6.27 4.0 - 11.0 05/28 Specimen T ype: BLOOD SADAF [#/VOLUME] /2021 No comment en tered. URIEL IN BLOOD BY Ordering Pr ovider: SHANTAL HANSON [facility] AUTOMATED Report Releas ed Date/Time: May 28, 2022 03:06 PM COUNT Reporting Lab: [facility] [address] [place] [address] Performing Lab: [facility] [address] [place] [address] CBC ERYTHROCYTE 4.43 4.6 - 6.2 05/28 L Specimen T ype: BLOOD SADAF S /2021 No comment enter ed. URIEL [#/VOLUME] Ordering Pro vider: SHANTAL HANSON [facility] IN BLOOD BY Report Rele ased Date/Time: May 28, 2022 03:06 PM AUTOMATED Reporting Lab : [facility] [place] [address] Performing Lab: [facility] [address] [facility] [address] CBC HEMOGLOBIN 12.9 13.5 - 05/28 L Specimen Type : BLOOD SADAF [MASS/VOLUM 17.9 No comment e ntered. URIEL E] IN BLOOD Ordering Pr ovider: SHANTAL HANSON [facility] Report Released Date/Time: May 28, 2022 03:06 PM Reporting Lab: [facility] [address] [facility] [address] Performing Lab: [facility] [address] [facility] [address] CBC HEMATOCRIT 40.2 41 - 54 05/28 L Specimen Type : BLOOD SADAF [VOLUME /2021 No comment enter ed. URIEL FRACTION] Ordering Prov ider: SHANTAL HANSON [facility] OF BLOOD BY Report Rele ased Date/Time: May 28, 2022 03:06 PM AUTOMATED Reporting Lab : [facility] [address] [facility] [address] Performing Lab: [facility] [address] [facility] [address] CBC MCV 90.7 80 - 100 05/28 Specimen Type: BLOOD SADAF [ENTITIC /2021 No comment ente red. URIEL VOLUME] BY Ordering Pro vider: SHANTAL HANSON [facility] AUTOMATED Report Releas ed Date/Time: May 28, 2022 03:06 PM COUNT Reporting Lab: [facility] [address] [facility] [address] Performing Lab: [facility] [address] [facility] [address] CBC MCH 29.1 27 - 33 05/28 Specimen Type: B LOOD SADAF [ENTITIC /2021 No comment ente red. URIEL MASS] BY Ordering Provi swapnil: SHANTAL HANSON [facility] AUTOMATED Report Releas ed Date/Time: May 28, 2022 03:06 PM COUNT Reporting Lab: [facility] [address] [facility] [address] Performing Lab: [facility] [address] [facility] [address] CBC MCHC 32.1 32.0 - 05/28 Specimen Type: B LOOD SADAF [MASS/VOLUM 37.5 No comment e ntered. URIEL E] BY Ordering Provid er: SHANTAL HANSON [facility] AUTOMATED Report Releas ed Date/Time: May 28, 2022 03:06 PM COUNT Reporting Lab: [facility] [address] [facility] [address] Performing Lab: [facility] [address] [facility] [address] CBC PLATELETS 183 150 - 400 05/28 Specimen Typ e: BLOOD SADAF [#/VOLUME] /2021 No comment en tered. URIEL IN BLOOD BY Ordering Pr ovider: SHANTAL HANSON [facility] AUTOMATED Report Releas ed Date/Time: May 28, 2022 03:06 PM COUNT Reporting Lab: [facility] [address] [facility] [address] Performing Lab: [facility] [address] [facility] [address] CBC PLATELET 10.6 7.4 - 10.4 05/28 H Specimen Typ e: BLOOD SADAF MEAN VOLUME /2021 No comment e ntered. URIEL [ENTITIC Ordering Provi swapnil: SHANTAL HANSON [facility] VOLUME] IN Report Relea sed Date/Time: May 28, 2022 03:06 PM BLOOD BY Reporting Lab: [facility] [address] [facility] [facility] [address] COUNT Performing Lab: [facility] [address] [facility] [address] CBC ERYTHROCYTE 13.5 11.5 - 05/28 Specimen Typ e: BLOOD SADAF DISTRIBUTIO 14.5 /2021 No comment e ntered. URIEL N WIDTH Ordering Provid er: SHANTAL HANSON [facility] [RATIO] BY Report Relea sed Date/Time: May 28, 2022 03:06 PM AUTOMATED Reporting Lab : [facility] [address] [facility] [address] Performing Lab: [facility] [address] [facility] [address] COMPREHEN CREATININE 0.7 0.7 - 1.2 05/28 Specimen Type: PLASMA SADAF SIVE [MASS/VOLUM /2021 No comment e ntered. URIEL METABOLIC E] IN SERUM Ordering Provider: SHANTAL HANSON [facility] PANEL+MG OR PLASMA Report Relea sed Date/Time: May 28, 2022 03:06 PM Reporting Lab: [facility] [address] [facility] [address] Performing Lab: [facility] [address] [facility] [address] COMPREHEN UREA 13 8 - 26 05/28 Specimen Type: PLASMA SADAF SIVE NITROGEN /2021 No comment ente red. URIEL METABOLIC [MASS/VOLUM Ordering Provider: SHANTAL HANSON [facility] PANEL+MG E] IN SERUM Report Rel eased Date/Time: May 28, 2022 03:06 PM OR PLASMA Reporting Lab : [facility] [address] [facility] [address] Performing Lab: [facility] [address] [facility] [address] COMPREHEN GLUCOSE 98 74 - 100 05/28 Specimen Type : PLASMA SADAF SIVE [MASS/VOLUM /2021 No comment e ntered. URIEL METABOLIC E] IN SERUM Ordering Provider: SHANTAL HANSON [facility] PANEL+MG OR PLASMA Report Relea sed Date/Time: May 28, 2022 03:06 PM Reporting Lab: [facility] [address] [facility] [address] Performing Lab: [facility] [address] [facility] [address] COMPREHEN SODIUM 138 136 - 145 05/28 Specimen Typ e: PLASMA SADAF SIVE [MOLES/VOLU /2021 No comment e ntered. URIEL METABOLIC ME] IN Ordering Prov ider: SHANTAL HANSON [facility] PANEL+MG SERUM OR Report Releas ed Date/Time: May 28, 2022 03:06 PM PLASMA Reporting Lab: [facility] [address] [facility] [address] Performing Lab: [facility] [address] [facility] [address] COMPREHEN POTASSIUM 4.4 3.5 - 5.1 05/28 Specimen T ype: PLASMA SADAF SIVE [MOLES/VOLU /2021 No comment e ntered. URIEL METABOLIC ME] IN Ordering Prov ider: SHANTAL HANSON [facility] PANEL+MG SERUM OR Report Releas ed Date/Time: May 28, 2022 03:06 PM PLASMA Reporting Lab: [facility] [address] [facility] [address] Performing Lab: [facility] [address] [facility] [address] COMPREHEN CHLORIDE 102 98 - 107 05/28 Specimen Typ e: PLASMA SADAF SIVE [MOLES/VOLU /2021 No comment e ntered. URIEL METABOLIC ME] IN Ordering Prov ider: SHANTAL HANSON [facility] PANEL+MG SERUM OR Report Releas ed Date/Time: May 28, 2022 03:06 PM PLASMA Reporting Lab: [facility] [place] [address] Performing Lab: [facility] [place] [address] COMPREHEN CARBON 28 22 - 29 05/28 Specimen Type: PLASMA SADAF SIVE DIOXIDE /2021 No comment ente red. URIEL METABOLIC TOTAL Ordering Prov ider: SHANTAL HANSON [facility] PANEL+MG [MOLES/VOLU Report Rel eased Date/Time: May 28, 2022 03:06 PM ME] IN Reporting Lab: [facility] SERUM OR [address] [place]ia [place] [address] PLASMA Performing Lab: [facility] [address] [facility] [address] COMPREHEN CALCIUM 9.4 8.4 - 10.2 05/28 Specimen Ty pe: PLASMA SADAF SIVE [MASS/VOLUM No comment e ntered. URIEL METABOLIC E] IN SERUM Ordering Provider: SHANTAL HANSON [facility] PANEL+MG OR PLASMA Report Relea sed Date/Time: May 28, 2022 03:06 PM Reporting Lab: [facility] [address] [facility] [address] Performing Lab: [facility] [address] [facility] [address] COMPREHEN PROTEIN 7.6 6.0 - 8.3 05/28 Specimen Typ e: PLASMA SADAF SIVE [MASS/VOLUM No comment e ntered. URIEL METABOLIC E] IN SERUM Ordering Provider: SHANTAL HANSON [facility] PANEL+MG OR PLASMA Report Relea sed Date/Time: May 28, 2022 03:06 PM Reporting Lab: [facility] [address] [facility] [address] Performing Lab: [facility] [address] [facility] [address] COMPREHEN ALBUMIN 4.0 3.5 - 5.2 05/28 Specimen Typ e: PLASMA SADAF SIVE [MASS/VOLUM No comment e ntered. URIEL METABOLIC E] IN SERUM Ordering Provider: SHANTAL HANSON [facility] PANEL+MG OR PLASMA Report Relea sed Date/Time: May 28, 2022 03:06 PM Reporting Lab: [facility] [place] [address] Performing Lab: [facility] [place] [address] COMPREHEN BILIRUBIN.T 0.5 0.2 - 1.2 05/28 Specimen Type: PLASMA SADAF SIVE OTAL /2021 No comment enter ed. URIEL METABOLIC [MASS/VOLUM Ordering Provider: SHANTAL HANSON [facility] PANEL+MG E] IN SERUM Report Rel eased Date/Time: May 28, 2022 03:06 PM OR PLASMA Reporting Lab : [facility] [address] [facility] [address] Performing Lab: [facility] [address] [facility] [address] COMPREHEN MAGNESIUM 2.1 1.6 - 2.6 05/28 Specimen T ype: PLASMA SADAF SIVE [MASS/VOLUM /2021 No comment e ntered. URIEL METABOLIC E] IN SERUM Ordering Provider: SHANTAL HANSON [facility] PANEL+MG OR PLASMA Report Relea sed Date/Time: May 28, 2022 03:06 PM Reporting Lab: [facility] [address] [facility] [address] Performing Lab: [facility] [address] [facility] [address] COMPREHEN ANION GAP 8 5 - 15 05/28 Specimen Typ e: PLASMA SADAF SIVEvelyn IN SERUM OR /2021 No comment e ntered. URIEL METABOLIC PLASMA Ordering Prov ider: SHANTAL HANSON [facility] PANEL+MG Report Release d Date/Time: May 28, 2022 03:06 PM Reporting Lab: [facility] [place] [address] Performing Lab: [facility] [address] [facility] [address] COMPREHEN ALKALINE 108 40 - 150 05/28 Specimen Typ e: PLASMA SADAF DAVIES PHOSPHATASE /2021 No comment e ntered. URIEL METABOLIC [ENZYMATIC Ordering P rovider: SHANTAL HANSON [facility] PANEL+MG ACTIVITY/VO Report Rel eased Date/Time: May 28, 2022 03:06 PM LUME] IN Reporting Lab: [facility] SERUM OR [address] [facility]ia [facility] [address] PLASMA Performing Lab: [facility] [place] [address] COMPREHEN ALANINE 27 <55 - 55 05/28 Specimen Type : PLASMA SADAF SIVE AMINOTRANSF /2021 No comment e ntered. URIEL METABOLIC ERASE Ordering Prov ider: SHANTAL HANSON [facility] PANEL+MG [ENZYMATIC Report Rele ased Date/Time: May 28, 2022 03:06 PM ACTIVITY/VO Reporting L ab: [facility] LUME] IN [address] [facility] [address] SERUM OR Performing Lab : [facility] PLAS[facility] [place] [address] COMPREHEN ASPARTATE 21 <34 - 34 05/28 Specimen Ty pe: PLASMA SADAF DAVIES AMINOTRANSF /2021 No comment e ntered. URIEL METABOLIC ERASE Ordering Prov ider: SHANTAL HANSON [facility] PANEL+MG [ENZYMATIC Report Rele ased Date/Time: May 28, 2022 03:06 PM ACTIVITY/VO Reporting L ab: [facility] LUME] IN [address] [facility] [address] SERUM OR Performing Lab : [facility] PLAS[facility] [place] [address] COMPREHEN GLOMERULAR >90 60 05/28 Specimen Ty pe: PLASMA SADAF DAVIES FILTRATION /2021 No comment en tered. URIEL METABOLIC RATE/1.73 Ordering Pr ovider: SHANTAL HANSON [facility] PANEL+MG SQ Report Release d Date/Time: May 28, 2022 03:06 PM M.PREDICTED Reporting L ab: [facility] [VOLUME [place] [address] RATE/AREA] Performing L ab: [facility] IN SERUM, [address] [facility] [address] PLASMA OR BLOOD BY CREATININE- BASED FORMULA (CKD-EPI) HEMOGLOBI HEMOGLOBIN 5.8 4.0 - 6.0 05/28 Specimen Type: BLOOD SADAF N A1C A1C/HEMOGLO /2021 No comment e ntered. URIEL BIN.TOTAL Ordering Prov ider: SHANTAL HANSON [facility] IN BLOOD Report Release d Date/Time: May 28, 2022 03:06 PM Reporting Lab: [facility] [place] [address] Performing Lab: [facility] ONE [facility] [place] [address] HIV AG/AB HIV 1+2 NEGATIVE 05/28 Specimen Type : SERUM SADAF SCREEN AB+HIV1 P24 /2021 No comment e ntered. URIEL AG Ordering Provid er: SHANTAL HANSON [facility] [PRESENCE] Report Relea sed Date/Time: May 28, 2022 03:06 PM IN SERUM OR Reporting L ab: [facility] [place] [address] IMMUNOASSAY Performing Lab: [facility] [address] [place] [address] LIPID CHOLESTEROL 116 <199 - 199 05/28 Specimen Type: PLASMA SADAF PANEL,NON [MASS/VOLUM /2021 No comment entered. URIEL -FASTING E] IN SERUM Ordering P rovider: SHANTAL HANSON [facility] OR PLASMA Report Releas ed Date/Time: May 28, 2022 03:06 PM Reporting Lab: [facility] [place] [address] Performing Lab: [facility] ONE [facility] [place] [address] LIPID CHOLESTEROL 39 40 05/28 L Specimen Typ e: PLASMA SADAF PANEL,NON IN HDL No comment ent ered. URIEL -FASTING [MASS/VOLUM Ordering P rovider: SHANTAL HANSON [facility] E] IN SERUM Report Rele ased Date/Time: May 28, 2022 03:06 PM OR PLASMA Reporting Lab : [facility] [place] [address] Performing Lab: [facility] [address] [place] [address] LIPID CHOLESTEROL 64 <99 - 99 05/28 Specimen Ty pe: PLASMA SADAF PANEL,NON IN LDL No comment ent ered. URIEL -FASTING [MASS/VOLUM Ordering P rovider: SHANTAL HANSON [facility] E] IN SERUM Report Rele ased Date/Time: May 28, 2022 03:06 PM OR PLASMA Reporting Lab : [facility] BY [place] [address] CALCULATION Performing Lab: [facility] [place] [address] LIPID CHOLESTEROL 13 <29 - 29 05/28 Specimen Ty pe: PLASMA SADAF PANEL,NON IN VLDL /2021 No comment ent ered. URIEL -FASTING [MASS/VOLUM Ordering P rovider: SHANTAL HANSON [facility] E] IN SERUM Report Rele ased Date/Time: May 28, 2022 03:06 PM OR PLASMA Reporting Lab : [facility] BY [address] [place] [address] CALCULATION Performing Lab: [facility] [address] [place] [address] LIPID CHOLESTEROL 77 <129 - 129 05/28 Specimen Type: PLASMA SADAF PANEL,NON NON HDL /2021 No comment ent ered. URIEL -FASTING [MASS/VOLUM Ordering P rovider: SHANTAL HANSON [facility] E] IN SERUM Report Rele ased Date/Time: May 28, 2022 03:06 PM OR PLASMA Reporting Lab : [facility] [address] [place] [address] Performing Lab: [facility] [address] [place] [address] LIPID TRIGLYCERID 63 <149 - 149 05/28 Specimen Type: PLASMA SADAF PANEL,NON E /2021 No comment ent ered. URIEL -FASTING [MASS/VOLUM Ordering P rovider: SHANTAL HANSON [facility] E] IN SERUM Report Rele ased Date/Time: May 28, 2022 03:06 PM OR PLASMA Reporting Lab : [facility] [address] [place] [address] Performing Lab: [facility] [address] [place] [address] TSH THYROTROPIN 2.42 0.35 - 05/28 Specimen Typ e: PLASMA SADAF W/REFLEX [UNITS/VOLU 4.94 /2021 No comment entered. URIEL TO FREE ME] IN Ordering Provid er: SHANTAL HANSON T4 SERUM OR Report Release d Date/Time: May 28, 2022 03:06 PM PLASMA Reporting Lab: [facility] [address] [place] [address] Performing Lab: [facility] [address] [place] [address] Vital Signs Combined list of inpatient and outpatient Vital Signs from Department of Defense and Veterans Affairs, ranging from 12 months to all on record, depending upon the facility. Vital Sign Value Date Comments Source SYSTOLIC BLOOD PRESSURE 104 05/28/2022 14:06:53 S[facility]AF [place] DIASTOLIC BLOOD PRESSURE 67 05/28/2022 14:06:53 SADAF [place] PULSE OXIMETRY 100% 05/28/2022 14:06:53 SADAF [place] WEIGHT 240 05/28/2022 14:06:53 SADAF L [facility] BMI 36kg/m2 05/28/2022 14:06:53 S[facility]AF [place] [facility] PAIN 0 05/28/2022 14:06:53 [facility] [place] HEIGHT 69 05/28/2022 14:06:53 S[facility]AF [place] TEMPERATURE 96.2 05/28/2022 14:06:53 S[facility]AF [place] PULSE 80 05/28/2022 14:06:53 S[facility]AF [place] RESPIRATION 14 05/28/2022 14:06:53 [facility]AF L [facility] Encounters Combined list of: 1) Encounters from Department of Veterans Affairs facilities going back up to the last 18 months, not all [place] inpatient encounters are included; 2) Encounters from the Department of Defense facilities going back up to 280 months. Location Location Encounter Encounter Reason Attending ADM DC Stat us Disposition Source Details Type Number For Provider Date Date Visit Outpatient [id number] 01/02 [place] En[place] [id number] /2020 [facility] Outpatient [id number] KAYE NIETO 01/05 [place] Encounter [id number] HIA L /2020 [facility] Outpatient [id number] 01/25 [place] Encounter [id number] /2020 [facility] Outpatient [id number] Karen JENSEN 04/20 [place] Encounter [id number] ERR [facility] Outpatient [id number] 04/21 [place] Encounter [id number] /2020 [facility] Outpatient [id number] 08/06 [place] Encounter [id number] /2020 [facility] Outpatient [id number] 09/03 [place] Encounter [id number] /2020 [facility] OFFICE O/P [id number] Diagnos GRANDIA,[place] 05/28 SADAF JIMÉNEZ [place] [id number] is: NNIE M URIEL 60-74 MIN 91 ICD-10- CBOC CM C72.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
with Provide r Comment s: Ependym alfonso of spinal cord (SCT [id number]) Outpatient [id number] 07/20 [place] Encounter [id number] /2021 [facility] Outpatient [id number] 06/01 [place] En[place] [id number] /2021 [facility] Outpatient [id number] 06/04 [place] Encounter [id number] /2021 [facility] Outpatient [id number] 06/05 [place] Encounter [id number] /2021 [facility] SELF CARE 71830-961 Diagnos NADEEN MITCHELL 06/07 [place] MNGMENT [id number] is: A J [facility] TRAINING ICD-10- [facility] CM Z73.6 Limitat ion of activit ies due to disabil ity<br/ >with Provide r Comment s: Limitat ion of activit ies due to disabil ity Outpatient [id number] 06/07 [place] Encounter [id number] /2021 [facility] OT EVAL [id number] Diagnos ARLENSAVANNA 06/07 [place] HIGH [id number] is: INE WILDA /2021 [facility] V A COMPLEX 61 ICD-10- [facility] MIN CM R54 Age-rel ated physica l debilit y
w ith Provide r Comment s: Age-Rel ated Physica l Debilit y Outpatient [id number] 06/11 [place] Encounter [id number] /2021 [facility] Outpatient [id number] 06/11 [place] En[place] [id number] /2021 [facility] Outpatient [id number] 06/15 [place] Encounter [id number] /2021 [facility] Social History Combined list of available smoking, tobacco, and other social history from Department of Defense and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 Social History Type Response Date Comment Source Tobacco smoking status VA-TOBACCO NEVER USED 05/28/2022 SADAF TREVINO [facility] This section is an [facility] empty social history section. Plan of Care List of future care activities from Department of 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 Additional future care activities may be listed in the Assessment and Plan section. Date/Time Care Activity Care Activity Detail Facility 06/26/2022 AMBULATORY - NONE AMBULATORY - NONE SADAF MARKHAM
--- OUTSIDE RECORDS SUMMARY | 2022-06-20 02:19 | XMS_ITS | Encounter Summary ---
:1945 Author Organization [facility] Address [address] [place] [address] Support Name Relationship Address Phone WADE DEGROOT Unavailable [phone] [phone] WADE DEGROOT [phone] [place] [phone] Insurance Providers: All historical and current Section [...] MEDICARE MEDICARE PART Jul 12, PART B [id number] 800 [place],F P ATIENT (WNR) (M) B 2003 PP47 [phone] RED MEDICARE MEDICARE PART Oct 11, PART A [id number] 800 [place],F P ATIENT (WNR) (M) A 2001 PP47 [phone] RED Selected Encounter This section includes the information on record at [place] for the Encounter. Date/Time Encounter Type Encounter Description Reason Provider Source Sep 03, 2021 12:00 Outpatient Encounter EVENT (HISTORICAL) AM E Encounter Template Text not used by [place] Immunizations: All administered on the encounter date This section contains immunizations associated to the Encounter. Immunization Series Date Issued Reaction Comments INFLUENZA, UNSPECIFIED FORMULATION Sep 03, 2021
--- OUTSIDE RECORDS SUMMARY | 2022-06-20 02:19 | XMS_ITS | Encounter Summary ---
:1945 Author Organization [facility] rs Address [address] [place] [address] Support Name Relationship Address Phone WADE DEGROOT Unavailable [phone] [phone] WADE [address]GR[phone] [place] [phone] Insurance Providers: All historical and current Section [...] MEDICARE MEDICARE PART Jul 12, PART B [id number],F P ATIENT (WNR) (M) B 2003 [id number] [phone] RED MEDICARE MEDICARE PART Oct 11, PART A [id number] 800 [address],F P ATIENT (WNR) (M) A 2001 [id number] [phone] RED Selected Encounter This section includes the information on record at [place] for the Encounter. Date/Time Encounter Type Encounter Description Reason Provider Source Aug 06, 2021 12:00 Outpatient Encounter EVENT (HISTORICAL) AM E Encounter Template Text not used by [place] Immunizations: All administered on the encounter date This section contains immunizations associated to the Encounter. Immunization Series Date Issued Reaction Comments COVID-19 (PFIZER), MRNA, LNP-S, PF, 30 MCG/0.3 3 Aug 06, 2021 ML DOSE
--- OUTSIDE RECORDS SUMMARY | 2022-06-20 02:20 | XMS_ITS | Encounter Summary ---
:1945 Author Organization [facility] rs Address [address] [place] [address] Support Name Relationship Address Phone WADE DEGROOT Unavailable [phone] [address] WADE DEGROOT [address] [address] Insurance Providers: All historical and current Section [...] MEDICARE MEDICARE PART Jul 12, PART B [id number] 800 VOEGELE,F P ATIENT (WNR) (M) B 2003 PP47 [phone] RED MEDICARE MEDICARE PART Oct 11, PART A [id number] 800 VOEGELE,F P ATIENT (WNR) (M) A 2001 PP47 [phone] RED Selected Encounter This section includes the information on record at [place] for the Encounter. Date/Time Encounter Type Encounter Description Reason Provider Source Jun 07, 2022 02:25 Outpatient Encounter COMMUNITY CARE PM CONSULT IHE Encounter Template Text not used by MA Plan of Treatment: Future Appointments (+ 6 months) and Future Tests (+/- 45 days) The Plan of Treatment section includes future care activities for the patient from all [place] treatmentfacilities. This section includes future appointments and future orders which are active, pending orscheduled.Future Appointments This section includes appointments that were scheduled to occur 6 months from the date of the Encounter, up to a maximum of 20 appointments. The data comes from all [place] treatment facilities. Appointment Date/Time Appointment Type Appointment Facili ty Name Jun 12, 2022 07:00 AM AMBULATORY - NONE [facility] Jun 26, 2022 11:00 AM AMBULATORY - NONE [facility] Jun 27, 2022 02:00 PM AMBULATORY - REHAB MEDICINE [facility] Active, Pending, and Scheduled Orders This section includes a listing of several types of active, pending, and scheduled orders, including clinic medications orders, diagnostic test orders, procedure orders and consult orders; where the start date of the order is 45 days before the date of the Encounter or 45 days after the date of the Encounter. The data comes from all [place] treatment facilities. Test Date/Time Test Type Test Details Facility Name Jun 04, 2022 03:35 PM Consult Order [facility] Cons Gasser Machine Operator's Choice Jun 08, 2022 03:40 PM Consult Order SCI/D OUTPT Cons Consultan t's [facility] Choice Lab Results: +/- 30 days of the encounter This section includes the Chemistry and Hematology Lab Results on record with MA for the patient. Radiology Reports and Pathology [...] May 28, 2022 03:06 PM Reporting Lab: [facility] [address] Performing [facility]: [facility] [address] CREATININE 0.7 0.7-1.2 UREA NITROGEN 13 8-26 [...] May 28, 2022 03:06 PM Reporting Lab: [facility] [address] [facility] [address] Performing Lab: [facility] [address] [facility] [address] WBC 6.27 4.0-11.0 RBC 4.43 L 4.6-6.2 [...] May 28, 2022 03:06 PM Reporting Lab: [facility] [address] [facility] [address] Performing Lab: [facility] [address] [facility] [address] HEMOGLOBIN A1C 5.8 4.0-6.0 May 28, 2022 03:31 [facility] LIPID PANEL,NON-FASTING Spec imen Type: PLASMA PM No comment enter ed. Ordering Provid er: SHANTAL HANSON Report Released Date/Time: May 28, 2022 03:06 PM Reporting Lab: [facility] [address] [facility] [address] Performing Lab: [facility] [address] [facility] [address] CHOLESTEROL 116 <199 .HDL 39 L >40 LDL CALCULATION 64 <99 VLDL CALCULATION 13 <29 NON HDL CHOLESTEROL 77 <129 TRIG(NON FASTING) 63 <149 May 28, 2022 03:31 PM [facility] ANTI-HEP C(EIA) Specimen Type: SERUM No comment enter ed. Ordering Provid er: SHANTAL HANSON Report Released Date/Time: May 28, 2022 03:06 PM Reporting Lab: [facility] [address] [facility] [address] Performing Lab: [facility] [address] [facility] [address] ANTI-HEP C(EIA) NEGATIVE NEGATIVE May 28, 2022 03:31 PM SADAFKaren [facility] HIV AG/AB SCREEN Specimen Type: SERUM No comment enter ed. Ordering Provid er: SHANTAL HANSON Report Released Date/Time: May 28, 2022 03:06 PM Reporting Lab: [facility] [address] [facility] [address] Performing Lab: [facility] [address] [facility] [address] HIV AG/AB SCREEN NEGATIVE NEGATIVE May 28, 2022 03:31 [facility]AFKaren [facility] TSH W/REFLEX TO FREE Specime n Type: PLASMA PM T4 No comment enter ed. Ordering Provid er: SHANTAL HANSON Report Released Date/Time: May 28, 2022 03:06 PM Reporting Lab: [facility] [address] [facility] [address] Performing Lab: [facility] [address] [facility] [address] TSH 2.42 0.35-4.94 Encounter Notes: All associated encounter notes This section contains the clinical notes associated to the Encounter. Date/Time Encounter Note(s) Provider Source Jun 07, 2022 02:25 PM [facility] COMM[facility]ITY CARE-CARE COORDINATION Terry ASTUDILLO [facility] TITLE: NONVA NOTE DATE OF NOTE: JUN 07, 2022@14:25 ENTRY DATE: JUN 07, 2022@14:25:41 AUTHOR: LUMA CATES EXP COSIGNER: URGENCY: STATUS: COMPLETED COMMUNITY CARE-CARE COORDINATION PLAN NOTE Has ADDENDA Sri at [phone] from [facility] He alth contacted the Community Care Department. She would like a call back to et clarification on what services are being requested by the MA regarding 's homecare consults. Please advise. Thank you! /le/ LUMA CATES MSA Signed: 06/07/2022 14:31 Receipt Acknowledged By: 06/07/2022 15:03 /el/ JAJA BALLARD, RN fishing vessel mate Passementerie Worker * AWAITING SIGNATURE * KIRBY WHITLOCK 06/07/2022 ADDENDUM STATUS: COMPLETED Attempted return call to Sri-no answer. Left m essage on secure VM regarding skilled referral sent to agency for osto my bag changes 3x/wk as Coleman's is primary caregiver and is having shoul swapnil surgery. Informed her OFFICE AGENT referral sent to separate agency as anticipating higher hours d/t 's paraplegia. Left writer producer's direct number to callback for any further questions regarding referral. /es/ JAJA BALLARD RN fishing vessel mate Passementerie Worker Signed: 06/07/2022 15:06
--- OUTSIDE RECORDS SUMMARY | 2022-06-20 02:20 | XMS_ITS | Encounter Summary ---
:1945 Author Organization [facility] rs Address [address] [place] [address] Support Name Relationship Address Phone WADE DEGROOT Unavailable [phone] [address] WADE DEGROOT [address] [address] Insurance Providers: All historical and current Section [...] MEDICARE MEDICARE PART Jul 12, PART B [id number] 800 VOEGELE,F P ATIENT (WNR) (M) B 2003 PP47 [phone] RED MEDICARE MEDICARE PART Oct 11, PART A [id number] 800 VOEGELE,F P ATIENT (WNR) (M) A 2001 PP47 [phone] RED Selected Encounter This section includes the information on record at [place] for the Encounter. Date/Time Encounter Type Encounter Description Reason Provider Source Jun 11, 2022 11:53 Outpatient Encounter TELEPHONE PRIMARY CARE IHE Encounter Template Text not used by [place] Plan of Treatment: Future Appointments (+ 6 months) and Future Tests (+/- 45 days) The Plan of Treatment section includes future care activities for the patient from all [place] treatmentfacilities. This section includes future appointments and future orders which are active, pending orscheduled.Future Appointments This section includes appointments that were scheduled to occur 6 months from the date of the Encounter, up to a maximum of 20 appointments. The data comes from all [place] treatment facilities. Appointment Date/Time Appointment Type Appointment Facili ty Name Jun 12, 2022 07:00 AM [facility]ONE [facility] Jun 26, 2022 11:00 AM AMBULATORY - NONE [facility] Jun 27, 2022 02:00 PM AMBULATORY - REHAB MEDICINE [facility] Active, Pending, and Scheduled Orders This section includes a listing of several types of active, pending, and scheduled orders, including clinic medications orders, diagnostic test orders, procedure orders and consult orders; where the start date of the order is 45 days before the date of the Encounter or 45 days after the date of the Encounter. The data comes from all [place] treatment facilities. Test Date/Time Test Type Test Details Facility Name Jun 04, 2022 03:35 PM Consult Order [facility] Cons Race And Sports Book Writer's Choice Jun 08, 2022 03:40 PM Consult Order SCI/D OUTPT Cons Consultan t's [facility] Choice Lab Results: +/- 30 days of the encounter This section includes the Chemistry and Hematology Lab Results on record with [place] for the patient. Radiology Reports and Pathology [...] May 28, 2022 03:06 PM Reporting Lab: [facility] [address] Performing Lab: [facility] [address] CREATININE 0.7 0.7-1.2 UREA NITROGEN 13 8-26 [...] May 28, 2022 03:06 PM Reporting Lab: [facility] [address] [facility] [address] Performing Lab: [facility] [address] [facility] [address] WBC 6.27 4.0-11.0 RBC 4.43 L 4.6-6.2 [...] May 28, 2022 03:06 PM Reporting Lab: [facility] [address] [facility] [address] Performing Lab: [facility] [address] [facility] [address] HEMOGLOBIN A1C 5.8 4.0-6.0 May 28, 2022 03:31 [facility] LIPID PANEL,NON-FASTING Spec imen Type: PLASMA PM No comment enter ed. Ordering Provid er: SHANTAL HANSON Report Released Date/Time: May 28, 2022 03:06 PM Reporting Lab: [facility] [address] [facility] [address] Performing Lab: [facility] [address] [facility] [address] CHOLESTEROL 116 <199 .HDL 39 L >40 LDL CALCULATION 64 <99 VLDL CALCULATION 13 <29 NON HDL CHOLESTEROL 77 <129 TRIG(NON FASTING) 63 <149 May 28, 2022 03:31 PM [facility] ANTI-HEP C(EIA) Specimen Type: SERUM No comment enter ed. Ordering Provid er: SHANTAL HANSON Report Released Date/Time: May 28, 2022 03:06 PM Reporting Lab: [facility] [address] [facility] [address] Performing Lab: [facility] [address] [facility] [address] ANTI-HEP C(EIA) NEGATIVE NEGATIVE May 28, 2022 03:31 PM [facility]A CBTATI HIV AG/AB SCREEN Specimen Type: SERUM No comment enter ed. Ordering Provid er: SHANTAL HANSON Report Released Date/Time: May 28, 2022 03:06 PM Reporting Lab: [facility] [address] [facility] [address] Performing Lab: [facility] [address] [facility] [address] HIV AG/AB SCREEN NEGATIVE NEGATIVE May 28, 2022 03:31 [facility] TSH W/REFLEX TO FREE Specime n Type: PLASMA PM T4 No comment enter ed. Ordering Provid er: SHANTAL HANSON Report Released Date/Time: May 28, 2022 03:06 PM Reporting Lab: [facility] [address] [facility] [address] Performing Lab: [facility] [address] [facility] [address] TSH 2.42 0.35-4.94 Encounter Notes: All associated encounter notes This section contains the clinical notes associated to the Encounter. Date/Time Encounter Note(s) Provider Source Jun 11, 2022 11:53 AM SOCIAL WORK NOTE: JOVANY WORKMAN [facility] LOCAL TITLE: SOCIAL WORK PROGRESS NOTE STANDARD TITLE: SOCIAL WORK NOTE DATE OF NOTE: JUN 11, 2022@11:53 ENTRY DATE: JUN 11, 2022@11:53:23 AUTHOR: JOVANY WORKMAN EXP COSIGNER: URGENCY: STATUS: COMPLETED This ticket writer spoke with [place]'s spouse- Wade on this day (06/11/22) at (14 minutes phone time) regarding previ ous phone visit follow up. Bundle Packer provided the resource of the spinal cord injury clinic and informed that if he was approved for the program, they co uld help with resources to obtain 's records (they are need ing these to try and increase service connectedness) and provide addit ional support to [place]. is very interested in finding out more about thi s program so ticket writer provided the phone number ([phone]) to for Loretta Yanes in the s [place] cord injury program. Wade- spouse also stated the home lending officer had some questions about the [facility] providing 's cath sup carlos alberto, ticket writer stated I did not know what the spinal cord program provided but suggested she call and talk with them first and if decided not to participate in th e program or they don't cover supplies to call me back (she verified my phone number [phone]) and I would reach out to the PACT team, Kaye n- spouse verbalized understanding. Wade- spouse had also inquired about getting [place]'s [employer] [facility] records. Wade was going to talk with the spinal cord injury program about this and ticket writer also sent the following e-mail with records resources: Everett Romero, It was a pleasure talking with you this morning. Here is the link to request [place]'s records: Request Service [facility] [employer] Please let me know if you have any further quest ions. Just a reminder that e- mail is not a secured way of message so please do not include any identifying or personal information in e-mails. Thank you, Jovany Plan: - Wade- spouse is going to call ticket writer back a nd let me know if anything further is needed from PACT after talkin g with the spinal cord injury program. - [facility] is kindly co-signing Loretta Yanes as an ALEJANDROI /el/ EJM Ordonez Primary Care Clinical Statistics Manager Signed: 06/11/2022 12:07 Receipt Acknowledged By: * AWAITING SIGNATURE * LORETTA YANES
--- OUTSIDE RECORDS SUMMARY | 2022-06-20 02:20 | XMS_ITS | Encounter Summary ---
:1945 Author Organization [facility] rs Address [address] [place] [address] Support Name Relationship Address Phone WADE DEGROOT Unavailable [address] [address] [address] [place] [address] Insurance Providers: All historical and current Section [...] MEDICARE MEDICARE PART Jul 12, PART B [id number] 800 VOEGELE,F P ATIENT (WNR) (M) B 2003 PP47 [phone] RED MEDICARE MEDICARE PART Oct 11, PART A [id number] 800 VOEGELE,F P ATIENT (WNR) (M) A 2001 PP47 [phone] RED Selected Encounter This section includes the information on record at [place] for the Encounter. Date/Time Encounter Type Encounter Description Reason Provider Source Jun 05, 2022 02:35 Outpatient Encounter COMMUNITY CARE PM CONSULT IHE Encounter Template Text not used by [place] Plan of Treatment: Future Appointments (+ 6 months) and Future Tests (+/- 45 days) The Plan of Treatment section includes future care activities for the patient from all [facility] treatmentfacilities. This section includes future appointments and future orders which are active, pending orscheduled.Future Appointments This section includes appointments that were scheduled to occur 6 months from the date of the Encounter, up to a maximum of 20 appointments. The data comes from all [place] treatment facilities. Appointment Date/Time Appointment Type Appointment Facili ty Name Jun 07, 2022 10:30 AM [facility] Jun 07, 2022 02:30 PM AMBULATORY - REHAB MEDICINE [facility] Jun 12, 2022 07:00 AM AMBULATORY - NONE [facility] Jun 26, 2022 11:00 AM AMBULATORY - NONE [facility] Jun 27, 2022 02:00 PM AMBULATORY - REHAB MEDICINE [facility] Active, Pending, and Scheduled Orders This section includes a listing of several types of active, pending, and scheduled orders, including clinic medications orders, diagnostic test orders, procedure orders and consult orders; where the start date of the order is 45 days before the date of the Encounter or 45 days after the date of the Encounter. The data comes from all [place] treatment facilities. Test Date/Time Test Type Test Details Facility Name Jun 04, 2022 03:35 PM Consult Order [facility] Cons Otr [employer] Truck Driver's Choice Jun 08, 2022 03:40 PM Consult Order SCI/D OUTPT Cons Consultan t's [facility] Choice Lab Results: +/- 30 days of the encounter This section includes the Chemistry and Hematology Lab Results on record with [place] for the patient. Radiology Reports and Pathology [...] May 28, 2022 03:06 PM Reporting Lab: [facility] [address] [facility] [address] Performing Lab: [facility] [address] CREATININE 0.7 0.7-1.2 UREA NITROGEN 13 8-26 [...] PM Reporting Lab: [facility] [address] Performing Lab: [facility] [address] WBC 6.27 4.0-11.0 RBC 4.43 L 4.6-6.2 [...] PM Reporting Lab: [facility] [address] Performing Lab: [facility] [address] HEMOGLOBIN A1C 5.8 4.0-6.0 May 28, 2022 03:31 [facility] LIPID PANEL,NON-FASTING Spec imen Type: PLASMA PM No comment enter ed. Ordering Provid er: SHANTAL HANSON Report Released Date/Time: May 28, 2022 03:06 PM Reporting Lab: [facility] [address] Performing Lab: [facility] [address] CHOLESTEROL 116 <199 .HDL 39 L >40 LDL CALCULATION 64 <99 VLDL CALCULATION 13 <29 NON HDL CHOLESTEROL 77 <129 TRIG(NON FASTING) 63 <149 May 28, 2022 03:31 PM [facility] ANTI-HEP C(EIA) Specimen Type: SERUM No comment enter ed. Ordering Provid er: SHANTAL HANSON Report Released Date/Time: May 28, 2022 03:06 PM Reporting Lab: [facility] [address] [facility] [address] Performing Lab: [facility] [address] [facility] [address] ANTI-HEP C(EIA) NEGATIVE NEGATIVE May 28, 2022 03:31 PM [facility] HIV AG/AB SCREEN Specimen Type: SERUM No comment enter ed. Ordering Provid er: SHANTAL HANSON Report Released Date/Time: May 28, 2022 03:06 PM Reporting Lab: [facility] [address] [facility] [address] Performing Lab: [facility] [address] [facility] [address] HIV AG/AB SCREEN NEGATIVE NEGATIVE May 28, 2022 03:31 [facility] TSH W/REFLEX TO FREE Specime n Type: PLASMA PM T4 No comment enter ed. Ordering Provid er: SHANTAL HANSON Report Released Date/Time: May 28, 2022 03:06 PM Reporting Lab: [facility] [address] [facility] [address] Performing Lab: [facility] [address] [facility] [address] TSH 2.42 0.35-4.94 Encounter Notes: All associated encounter notes This section contains the clinical notes associated to the Encounter. Date/Time Encounter Note(s) Provider Source Jun 05, 2022 02:35 PM NONVA NOTE: JENNIFER NIEVES [employer] LOCAL TITLE: COMMUNITY CARE-CARE COORDINATION P ELIN NOTE STANDARD TITLE: NONVA NOTE DATE OF NOTE: JUN 05, 2022@14:35 ENTRY DATE: JUN 05, 2022@14:35:21 AUTHOR: JENNIFER NIEVES EXP COSIGNER: URGENCY: STATUS: COMPLETED COMMUNITY CARE-CARE COORDINATION PLAN NOTE Has ADDENDA Jeff's called to let Gino Ballard know that she thinks [facility] in [place] would have home health care nurses. She said a contact center specialist for them is Jessica Jason. Her number is . Thank you. /el/ JENNIFER NIEVES ADVANCED MSA Signed: 06/05/2022 14:36 Receipt Acknowledged By: 06/05/2022 14:48 /es/ JAJA BALLARD, RN deicer element winder machine Cco & President 06/05/2022 ADDENDUM STATUS: COMPLETED Located within [facility] contacted this morning and stated they are able to provide SN services to and will accept referral. They have limited MAIL SORTER AND DELIVERY staffing so MAIL SORTER AND DELIVERY/non-skilled referral will be sen t to separate agency, [facility], in event higher MAIL SORTER AND DELIVERY hours are needed for personal cares d/t 's paraplegia. /es/ JAJA BALLARD RN deicer element winder machine Cco & President Signed: 06/05/2022 14:52
--- OUTSIDE RECORDS SUMMARY | 2022-06-20 02:20 | XMS_ITS | Encounter Summary ---
:1945 Author Organization [facility] rs Address [address] [place] [address] Support Name Relationship Address Phone WADE DEGROOT Unavailable [phone] [phone] WADE DEGROOT [phone] [place] [phone] Insurance Providers: All historical and current Section [...] MEDICARE MEDICARE PART Jul 12, PART B [id number] VOEGELE,F P ATIENT (WNR) (M) B 2003 [id number] [phone] RED MEDICARE MEDICARE PART Oct 11, PART A [id number] 800 VOEGELE,F P ATIENT (WNR) (M) A 2001 [id number] [phone] RED Selected Encounter This section includes the information on record at [place] for the Encounter. Date/Time Encounter Type Encounter Reason Provider Source Description Jun 07, 2022 SELF CARE OCCUPATIONAL ICD-10-CM Z73.6 JOE MITCHELL 10:30 AM MNGMENT THERAPY Limitation of TRAINING activities due to disability with Provider Comments: Limitation of activities due to disability IHE Encounter Template Text not used by [facility] Assessments - Encounter Diagnoses This section includes the primary and secondary diagnoses documented for the Encounter. Date/Time Primary/Secondary Diagnosis Name Provider Source Diagnosis Jun 07, 2022 PRIMARY Limitation of JOE MITCHELL [facility] 12:10 PM activities due HCS to disability Plan of Treatment: Future Appointments (+ 6 [...] 20 appointments. The data comes from all [facility]. Appointment Date/Time Appointment Type Appointment Facili ty Name Jun 12, 2022 07:00 AM AMBULATORY - NONE [facility] Jun 26, 2022 11:00 AM AMBULATORY - NONE [facility] Jun 27, 2022 02:00 PM AMBULATORY - REHAB MEDICINE [facility] Active, Pending, and Scheduled Orders This section includes a listing of several types of active, pending, and scheduled orders, including clinic medications orders, diagnostic test orders, procedure orders and consult orders; where the start date of the order is 45 days before the date of the Encounter or 45 days after the date of the Encounter. The data comes from all [facility]. Test Date/Time Test Type Test Details Facility Name Jun 04, 2022 03:35 PM Consult Order [facility] Cons Category Specialist's Choice Jun 08, 2022 03:40 PM Consult Order SCI/D OUTPT Cons Consultan t's [facility] Choice Lab Results: +/- 30 days of the encounter This section includes the Chemistry and Hematology Lab Results on record with [place] for the patient. Radiology Reports and Pathology Reports are provided separately, in subsequent sections.Lab Results This section contains the Chemistry/Hematology Results that were resulted 30 days before or 30 daysafter the date of the Encounter. Date/Time Source Result Type Result - Unit Interpretation Reference Range Comment May 28, 2022 03:31 [facility] COMPREHENSIVE METABOLIC Spec imen Type: PLASMA PM PANEL+MG No comment enter ed. Ordering Provid er: SHANTAL HANSON Report Released Date/Time: May 28, 2022 03:06 PM Reporting [facility] [address] Performing Lab: [facility] [address] CREATININE 0.7 0.7-1.2 UREA NITROGEN 13 8-26 GLUCOSE 98 74-100 SODIUM 138 136-145 POTASSIUM 4.4 3.5-5.1 CHLORIDE 102 98-107 CO2 28 22-29 CALCIUM 9.4 8.4-10.2 PROTEIN,TOTAL 7.6 6.0-8.3 ALBUMIN 4.0 3.5-5.2 BILIRUBIN, TOTAL 0.5 0.2-1.2 MAGNESIUM 2.1 1.6-2.6 ANION GAP 8 5-15 ALKALINE PHOSPHATASE 108 40-150 ALT/SGPT 27 <55 AST/SGOT 21 <34 CREAT EGFR(CKD-EPI) >90 >60 May 28, 2022 03:31 PM [facility] CBC Specimen Type: BLOOD No comment enter ed. Ordering Provid er: SHANTAL HANSON Report Released Date/Time: May 28, 2022 03:06 PM Reporting Lab: [facility] [address] [facility] [address] Performing Lab[facility] [address] WBC 6.27 4.0-11.0 RBC 4.43 L 4.6-6.2 [...] PM Reporting Lab: [facility] [address] [facility] [address] Performing Lab: [facility] [address] [address] HEMOGLOBIN A1C 5.8 4.0-6.0 May 28, 2022 03:31 [facility] LIPID PANEL,NON-FASTING Spec imen Type: PLASMA PM No comment enter ed. Ordering Provid er: SHANTAL HANSON Report Released Date/Time: May 28, 2022 03:06 PM Reporting Lab: [facility] [address] [facility] [address] Performing Lab: [facility] [address] [facility] [address] CHOLESTEROL 116 <199 .HDL 39 L >40 LDL CALCULATION 64 <99 VLDL CALCULATION 13 <29 NON HDL CHOLESTEROL 77 <129 TRIG(NON FASTING) 63 <149 May 28, 2022 03:31 PM [facility] ANTI-HEP C(EIA) Specimen Type: SERUM No comment enter ed. Ordering Provid er: SHANTAL HANSON Report Released Date/Time: May 28, 2022 03:06 PM Reporting Lab: [facility] [address] [facility] [address] Performing Lab: [facility] [address] [facility] [address] ANTI-HEP C(EIA) NEGATIVE NEGATIVE May 28, 2022 03:31 PM [facility] HIV AG/AB SCREEN Specimen Type: SERUM No comment enter ed. Ordering Provid er: SHANTAL HANSON Report Released Date/Time: May 28, 2022 03:06 PM Reporting Lab: [facility] [address] [facility] [address] Performing Lab: [facility] [address] [facility] [address] HIV AG/AB SCREEN NEGATIVE NEGATIVE May 28, 2022 03:31 [facility] TSH W/REFLEX TO FREE Specime n Type: PLASMA PM T4 No comment enter ed. Ordering Provid er: SHANTAL HANSON Report Released Date/Time: May 28, 2022 03:06 PM Reporting Lab: [facility] [address] [facility] [address] Performing Lab: [facility] [address] [facility] [address] TSH 2.42 0.35-4.94 Encounter Notes: All associated encounter notes This section contains the clinical notes associated to the Encounter. Date/Time Encounter Note(s) Provider Source Jun 07, 2022 07:47 AM OCCUPATIONAL THERAPY CONSULT: JOE MITCHELL [facility] LOCAL TITLE: OCCUPATIONAL THERAPY CONSULT STANDARD TITLE: OCCUPATIONAL THERAPY CONSULT DATE OF NOTE: JUN 07, 2022@07:47 ENTRY DATE: JUN 07, 2022@07:47:28 AUTHOR: JOE MITCHELL EXP COSIGNER: URGENCY: STATUS: COMPLETED OCCUPATIONAL THERAPY TELEHEALTH HOME EVALUATION Referring provider: SHANTAL HANSON Diagnosis for which patient is referred to OT: R53.1 In-home assessment required for: HISA nikhil Precautions/Restrictions: NA Encounter: 70 -OT Evaluation (low complexity): 45m (1) -Self-care management traininm (2) ASSESSMENT: (At the time of evaluation) Radha is a yo male referred for an OT home evalua tion 12/13 to: paraplegia and difficulty with functional t ransfers in home. [place] recently established care through the [place]. At baseline, rad[facility] with his , Wade. 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 Radha is modified in dependent for mobility in PWC and driving, radha's assi sts with most I/ADLs and functional transfers using slideboard. Radha has a manual charis lift but has not been using it for some time due to difficulty for his wi fe in operating it and limited space in the bedroom and bathroom. Radha has not been completing slideb oard transfer to shower chair due to shearing concerns with pressure injuries. They have been dealing with pressure sores on radha's bottom since November, report history of pressure injuries with hospitalization and sepsis in 2017 . Radha and 's main request is lift equi pment that would help with bed mobility and shower transfer s and reduce risk for pressure injuries. Radha's is having rotator cuff surgery on 06/20 and their family will be assisting radha with transfers and I/ADLs. Vet and are requesting a ceiling lift track in their bedroom and bathroom. Educated vet and on evaluation through wheeled mobility clinic to determine best option , they report they would also be happy with an electric charis lift if it could be used both in the bedroom and shower. Will consult with Seated Mobility OT Gertrudis to assess best options. If appropriate, radha would benefit from DANAE tejeda consideration for ceiling track system. Educated radha and on Athletic Standard[employer]agdish cr iteria and process. Will place consult to [facility] if needed. PLAN: No further OT needs at this time, discharge fro m OT. RECOMMENDATIONS, pending seated mobility evaluat ion: - [facility] consult for DANAE tejeda consideratio n for ceiling lift track installation in bedroom and bathroom PATIENT EDUCATION ON TREATMENT PLAN: Patient, Family indicates readiness to learn, v erbalizes understanding,agreement and satisfaction with t he treatment plan. Denies further questions. SHORT TERM GOAL to be met by end of session: 1. [place] will engage in an OT evaluation to im prove safety and independence with use of adaptive equipment. -MET CVT Documentation- Confirmed the following prior to start of visit: -[place] identified by Full name and Full Social Security number. -[place] has provided verbal consent to use [employer]) and was informed of their right to request a face-to-fac e visit instead at any time. - states he/she is in a safe and private environment suitable for the Telehealth encounter. Visit conducted by synchronous telehealth. Veter an verbal consent obtained. Location/emergency number confirmed. Env ironment surveyed and all participants identified. Virtual conference room locked. -Visit conducted by telehealth into the home usi ng: -Tablet iPad Email: [email or web address] Troubleshooting required during visit: Others present: Wade present Location of patient during session: [address] [place] [address] Emergency phone number (b161): [phone] Veterans Crisis Line: & press #1 or text [phone] [facility] National Telehealth Technology Help Desk (NT THD): [phone] or [phone]. The verbalizes authorization of an Occup ational Therapy Home evaluation to provide care and treatment ordered by their p hysician as needed. The also understands there may be a cost for the vis it if not completed via telehealth. The notes responsibility to find out if they have a co- payment through their insurance. Questions regar ding co-payment can be referred to the [facility] at . If the has concerns that arise during the visit that the home care t eam cannot resolve, they are understanding they can contact the patient repre sentative at [phone]. SUBJECTIVE/OBJECTIVE: Vet and report interest in a ceilin g lift system in vet's primary bedroom and bathroom due to difficul ty using charis lift and 's upcomign rotator cuff surgery CONTEXT SOCIAL HISTORY/HOME ENVIRONMENT: Lives: with: , Wade Primary Support System: 2 adult childre n live in the area, kids and grandkids assist with yardwork, snow management. Vet is kyle rhodes to get set up with home health through [place]. [facility]: [facility] with base ment (mainly storage), attached garage 2-car garage *All measurements taken by 's Kaye alfaro with verbal cuing via telehealth. ENTRANCE: Garage entrance (primary): - Self-installed wood ramp Front entrance: - [place] sidewalk - Self-installed composite material ramp entry, bilateral rails, appears to ADA code BATHROOM(S): Main -3/4 bath (primary): -Leads from bedroom, flat ceiling is same heigh t as bedroom -Doorway width: 36 -Rema: Linoleum -Sink: Cabinet style as well as a wall-mounted sink, wheelchair accessible -Toilet: Elongated -3 grab bars, vet does not use -Walk-in shower: -Threshold: 2 -Interior dimensions: 32.5 x 56 -Handheld shower hose on L -Curtain -Shower chair -2 horizontal grab bars, 1 vertical grab bar BEDROOM: Main - Doorway width: 36 - Flat ceiling - Estimated dimensions of bedroom: 13' by 13.5' - Hospital bed with rails, alternating air erickson ress - Floor to ceiling pole with trapeze attachment , and flip down horizontal bar (uses for transfers) - Wooden transfer board - Hardwood rema KITCHEN: Main - Open walkways - Laminate rema LIVING ROOM: Main - Laminate rema - Recliner and couch, reports vet does not tam sfer into it VETERANS CURRENT LEVEL OF INDEPENDENCE: Vet reports: -Dressing: Mod A - Gets dressed in supine with assist from , rolls side to side - assists with dressing, compression socks - Vet can don shirt on his own if needed -Grooming: Mod I -Bathing: Max A - Sponge bathing in bed due to transfer to show er stool being difficult -Shear of transfer is difficult due to pressure sore on bottom -Feeding: I -Transferring: Max A - helps with bed mobility supine>sit and s it>supine - Slide board transfer to [facility] from bed, as sists with guiding transfer and adjusting feet. Has tried using ga it belt but reports due to her short height, it is not very helpful . She blocks his knees with her knees -Toileting: Min A - Suprapubic catheter and colostomy - Vet changes colostomy pouches himself but wif e changes the barrier against the skin - Vet and both empty catheter bag. Goes to clinic every 3 weeks to have catheter changed. - Does not complete toilet transfers -Mobility: Mod I -In-home: - PWC -Community: - [facility] - 0 falls in the past 12 months -Cooking: Dependent, completes -Cleaning: Mod A - Vet does the dusting -Laundry: Dependent, completes -Groceries: Dependent, completes -Finances: Dependent, completes -Medication management: Dependent, complete s - In 2019, had 3 hospitalizations for UTIs, wif e has been managing meds since then -Driving: Mod I - Has a mobility van with lock-in system hand c estefany PAIN ASSESSMENT: My back is tight reports baseline, not painfu l OWNED ADAPTIVE EQUIPMENT: - Manual charis lift - [facility] - Wooden transfer bar - Hospital bed with railings - Ibnzr-qs-ssijbfs pole with trapeze attachment, flip-down horizontal bar - Shower chair with back, no arms - Wheelchair van - Manual wheelchair (has not used in a long time ) - Nu Step machine (does not use currently due to difficult transfer) - Manual Easy Stand device (reports transferring onto the seat from the [facility] level is difficult, is not able to operate anymore due to shoulder deficits) COGNITION: -Intact to conversation -Notes no acute concerns or deficits at baseline stating, reports memory is pretty darn good -Has a cellphone, carries if he drives himself s omewhere -Not formally assessed at this time EMOTIONAL/BEHAVIORAL: Appropriate affect, Calm/p leasant, Cooperative NEUROMUSCULAR FUNCTION Upper Extremities: Torn bicep tendon in R arm h appened at least 10-15 years ago, reports it does not affect him much. 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 OCCUPATIONAL THERAPY EVALUATION COMPLEXITY Identifying and reporting the complexity level o f an evaluation focuses on the first three of these factors--profile and hi story, assessment and determination of deficts, and clinical decision making. These three factors must be scored and defensible documentation wr itten to support the choice of a level. (Information taken from: https://www .aota.org) PROFILE AND HISTORY (including chart view) Brief history of medical and/or therapy records relating to the presenting problem (low complexity) ASSESSMENT & PERFORMANCE DEFICITS (select all th at apply): Physical: strength, mobility 1-3 performance deficits (Low complexity) LEVEL OF CLINICAL DECISION MAKING Commorbidities affect occupational performance: Yes (moderate or high complexity) Modifications of tasks or assistance to enable completion of evaluation: Not necessary (Low complexity) Problem-focused assessment(s), consideration of a limited number of treatment options, presents with no comorbidities and magda fication of tasks or assistance is not necessary.(Low complexity) LOW COMPLEXITY Brief history of medical/or therapy records rela ting to the presenting problem. An assessement(s) that identifies 1-3 performanc e deficits that result in activity limitation and/or participating restric tions. Includes analysis of the occupational profile, a nalysis of date from problem- focused assessment(s), and consideration of a li mited number of treatment options. Patient presents with no c omorbidities that affect occupational performance. Modification of tasks or assistance with assessm ent(s) is not necessary to enable completion of evaluation component. * /el/ [facility] KUNZ/Kateryna OCCUPATIONAL THERAPIST Signed: 06/07/2022 12:10
--- OUTSIDE RECORDS SUMMARY | 2022-06-20 02:20 | XMS_ITS | Encounter Summary ---
:1945 Author Organization [facility] rs Address [address] [place] [address] Support Name Relationship Address Phone WADE DEGROOT Unavailable [phone] [place] [address] WADE DEGROOT [address] [place] [address] Insurance Providers: All historical and current Section [...] MEDICARE MEDICARE PART Jul 12, PART B [id number] 800 VOEGELE,F P ATIENT (WNR) (M) B 2003 [id number] [phone] RED MEDICARE MEDICARE PART Oct 11, PART A [id number] 800 VOEGELE,F P ATIENT (WNR) (M) A 2001 [id number] [phone] RED Selected Encounter This section includes the information on record at CT for the Encounter. Date/Time Encounter Type Encounter Reason Provider Source Description Jun 07, 2022 OT EVAL HIGH WHEELCHAIR & ADVAN ICD-10-CM R54 SAVANNA MCKINLEY INE 02:30 PM COMPLEX 60 MIN MOBILITY Age-related WILDA physical debility with Provider Comments: Age-Related Physical Debility IHE Encounter Template Text not used by [facility] Assessments - Encounter Diagnoses This section includes the primary and secondary diagnoses documented for the Encounter. Date/Time Primary/Secondary Diagnosis Name Provider Source Diagnosis Jun 08, 2022 PRIMARY Age-related TIM MCKINLEY [facility] 02:55 PM physical WILDA HCS debility Plan of Treatment: Future Appointments (+ 6 months) and Future Tests (+/- 45 days) The Plan of Treatment section includes future care activities for the patient from all [facility]. This section includes future appointments and future orders which are active, pending orscheduled.Future Appointments This section includes appointments that were scheduled to occur 6 months from the date of the Encounter, up to a maximum of 20 appointments. The data comes from all CT treatment facilities. Appointment Date/Time Appointment Type Appointment Facili ty Name Jun 12, 2022 07:00 AM AMBULATORY - NONE [facility] Jun 26, 2022 11:00 AM AMBULATORY - NONE [facility] Jun 27, 2022 02:00 PM AMBULATORY - REHAB [facility] Active, Pending, and Scheduled Orders This section includes a listing of several types of active, pending, and scheduled orders, including clinic medications orders, diagnostic test orders, procedure orders and consult orders; where the start date of the order is 45 days before the date of the Encounter or 45 days after the date of the Encounter. The data comes from all CT treatment facilities. Test Date/Time Test Type Test Details Facility Name Jun 04, 2022 03:35 PM Consult Order [facility] Jun 08, 2022 03:40 PM Consult Order SCI/D OUTPT Cons Consultan t's [facility] Choice Lab Results: +/- 30 days of the encounter This section includes the Chemistry and Hematology Lab Results on record with CT for the patient. Radiology Reports and Pathology Reports are provided separately, in subsequent sections.Lab Results This section contains the Chemistry/Hematology Results that were resulted 30 days before or 30 daysafter the date of the Encounter. Date/Time Source Result Type Result - Unit Interpretation Reference Range Comment May 28, 2022 03:31 [facility] COMPREHENSIVE METABOLIC Spec imen Type: PLASMA PM PANEL+MG No comment enter ed. Ordering Provid er: SHANTAL HANSON Report Released Date/Time: May 28, 2022 03:06 PM Reporting Lab: [facility] [address] Performing Lab: [facility] [id number] CREATININE 0.7 0.7-1.2 UREA NITROGEN 13 8-26 [...] May 28, 2022 03:06 PM Reporting Lab: [facility] [address] [facility] [address] Performing Lab: [facility] [address] WBC 6.27 4.0-11.0 RBC 4.43 L 4.6-6.2 [...] May 28, 2022 03:06 PM Reporting Lab: [facility] [address] [facility] [address] Performing Lab: [facility] [address] [facility] [address] HEMOGLOBIN A1C 5.8 4.0-6.0 May 28, 2022 03:31 [facility] LIPID PANEL,NON-FASTING Spec imen Type: PLASMA PM No comment enter ed. Ordering Provid er: SHANTAL HANSON Report Released Date/Time: May 28, 2022 03:06 PM Reporting Lab: [facility] [address] [facility] [address] Performing Lab: [facility] [address] CHOLESTEROL 116 <199 .HDL 39 L >40 LDL CALCULATION 64 <99 VLDL CALCULATION 13 <29 NON HDL CHOLESTEROL 77 <129 TRIG(NON FASTING) 63 <149 May 28, 2022 03:31 PM [facility] ANTI-HEP C(EIA) Specimen Type: SERUM No comment enter ed. Ordering Provid er: SHANTAL HANSON Report Released Date/Time: May 28, 2022 03:06 PM Reporting Lab: [facility] [address] [facility] [address] Performing Lab: [facility] [address] ANTI-HEP C(EIA) NEGATIVE NEGATIVE May 28, 2022 03:31 PM [facility] HIV AG/AB SCREEN Specimen Type: SERUM No comment enter ed. Ordering Provid er: SHANTAL HANSON Report Released Date/Time: May 28, 2022 03:06 PM Reporting Lab: [facility] [address] [facility] [address] Performing Lab: [facility] [address] HIV AG/AB SCREEN NEGATIVE NEGATIVE May 28, 2022 03:31 [facility] TSH W/REFLEX TO FREE Specime n Type: PLASMA PM T4 No comment enter ed. Ordering Provid er: SHANTAL HANSON Report Released Date/Time: May 28, 2022 03:06 PM Reporting Lab: [facility] [address] [facility] [address] Performing Lab: [facility] [address] TSH 2.42 0.35-4.94 Encounter Notes: All associated encounter notes This section contains the clinical notes associated to the Encounter. Date/Time Encounter Note(s) Provider Source Jun 07, 2022 02:38 OCCUPATIONAL THERAPY CONSULT: TIM MCKINLEY [facility] PM LOCAL TITLE: OCCUPATIONAL THERAPY CONSULT STANDARD TITLE: OCCUPATIONAL THERAPY CONSULT DATE OF NOTE: JUN 07, 2022@14:38 ENTRY DATE: JUN 07, 2022@14:38:37 AUTHOR: TIM MCKINLEY EXP COSIGNER: URGENCY: STATUS: COMPLETED OCCUPATIONAL THERAPY CONSULT Has ADDENDA * Occupational Therapy Lift Evaluation Treatment: Eval & Treat Treatment Diagnosis: Age-Related Physical Debil ity(ICD-10-CM R54.) Referring Provider: SHANTAL HANSON Date of Initial: Jun 04, 2022 Precautions: falls Patient seen today via [facility] for OT evaluation. Encounter: 53 minutes High complexity OT evaluat ion. CVT Documentation: -Visit conducted by CVT into the home using: iOS Device (iPhone or iPad) -Email/VA iPad: [email or web address] Troubleshooting required during visit: none Consent/Disclosure: -Patient provided verbal consent to participate in telehealth appointment -The following verified with patient: Name & last 4 SSN Address (current physical location): [address] [place] [address] [place] [address] Phone Number/Emergency Conta ct: Emergency contact was the e911 bondactor machine operator at for the session. Participants: Juliet & his Locked the conference room. Problem list: Active problems - Computerized Problem List is t he source for the followin. Dementia 2. COPD - Chronic Obstructive Pulmonary Disease ([facility] [id number]) 3. Chronic Pain Syndrome ([facility] [id number]) 4. HTN - Hypertension ([facility] [id number]) 5. Hyponatremia 6. Anemia ([facility] [id number]) 7. Supraventricular tachycardia 8. Diabetes Mellitus Type 2 ([facility] [id number]) 9. Constipation ([facility] [id number]) 10. 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 Autonomic dysreflexia 13. History of pressure injury 14. Abnormal liver function 15. History of Deep Vein Thrombosis ([facility] [id number] ) 16. Tinnitus ([facility] [id number]) 17. Hearing Loss ([facility] [id number]) 18. Long-term current use of anticoagulant 19. Osteoporosis ([facility] [id number]) 20. Vitamin D Deficiency ([facility] 9393519) 21. Hyperlipidemia ([facility] [id number]) 22. Neurogenic Bladder ([facility] [id number]) 23. Neurogenic bowel 24. Continuous opioid dependence 25. Anxiety ([facility] [id number]) Chief Complaint: difficulty with transfers HISTORY OF PRESENT ILLNESS: In 1999 the vet was diagnoses with a tumor on hi s spine. 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 By 2006, t he vet needed spinal surgery to remove the tumor and became a complete paraplegic. In early 2016 he had what wa s diagnoses as a superficial PI but it was a deep abscess and he became septic. He had surgery dev eloped/was found to have necrotizing fasciitis. He returned home in April of 2017 and was set up with a hospital bed and alternating pressure mattress. The PI healed to a point but one area would not heal and in August of 2018 he fields d flap surgery. Current Function - ADL's: Did not inquire about individual ADL's reports that he is Max Assist for all cares. He has a colostomy and Supra pubi c catheter - Bathing/Showering: They have a step in shower with 2 lip. His shower chair does not have wheels, ordinally he brings his pwc in the bathroom and uses the slide board to transfer onto the shower edison r. While he has pressure injuries he has sponge baths . They do not want to pursue a rolling shower chair or slider system until they find out if they get approved for a ceiling lift. IADL's: Dependent Mobility: Independent in pow er wheelchair. Juliet has a Permobil 300 pwc with power tilt, power elevating ELR's and he thinks he has power recline. It does not have a seat elevator. He is using a Roho cushion BED: The vet has a hospital bed with an alternat ing air pressure mattress. [facility] which does not have room to maneuver a floor based lift. Bed mobility: Unable/max assist Can pt. sit EOB unsupported? No. He has a floor to ceiling pole and can briefly sit up on the EOB while holding onto the pole. P t is unable to sit up unsupported and dependent on lift for transfers. Transfers: Min A with slide board, Dependent on patient lift when has PI Hip/LE ROM: Not tested due to appointment modali ty - [facility] Falls: none Ht: 69 Wt.: 240 lbs. ASSESSMENT: Pt is a 77 year old vet with hx of paraplegia and weakness. He is being seen in the [facility] clinic to be evaluated for a pa tient lift, particularly they are interested in a ceiling track lift. The vet normally uses a slide board for transfers (not using current ly 2/2 re-opened Pressure Injury on right buttock). 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 S he is having RTC surgery next month and they will need add itional assist for transfers. They have a hydraulic Invacare 450 patient lift obtained via Medicare but it does not fit in their bedroom and the vet's will not be a ble to use it s/p her surgery. They do have family that can come in to help the vet get up in the AM and get to bed in the PM but they may need to be able to do transf ers during the day. They also note that as they are aging transfers are becoming increasingly difficult. They are interested in a ceiling lift in the bedroom and in the bathroom because the Invacare patient lift does not fit in either room. They have rearranged furniture in an effort to make t he space to be able to use it and no configuration gave them enough floor spac e to be able use the lift. Lift education: Educated vet and his wif e about the CT patient lifts e.g. only difference is that the hydraulic lifting mechani sm is replaced by a powered motor to lift the patient. T he caregiver would still need to be able to push the lift for the transfer. So th e standard Invacare [address] provides will not meet the need. Corporate Physical Security Supervisor believes that this ve t may meet criteria for services through the Spinal Cord Injury program that will have additional re sources and expertise in this area. The vet is agreeable w ith a referral to SCI to see if he meets criteria to be admitted to their program. Corporate Physical Security Supervisor to request that PCP enter a consult. The vet and his are also hoping that they c an obtain an alternating air pressure mattress through [facility] as the ones that are being provided by Medicare have been used and do not last as long as they s hould. Corporate Physical Security Supervisor will pass along this request to vet's PCP but does note that CT wound care may need to be involved with this type of item. Goals: Goal to evaluate vet for lift has been met. Patient/caregiver Education of Treatment Plan: Patient/caregiver indicates readiness to learn, verbalizes understanding, agreement and satisfaction with the treatment pl an. Denies further questions. RECOMMENDATION: TBD based on if vet remains outp atient for REC or if he transitions to SCI Plan: referral to SCI if vet does not meet cri aquiles Outpatient OT will work with PCP to attempt to find a workable solution for trans fers while is recovering from her RTC surgery. Likely this will not be a lift but additional help (RADIO BOARD OPERATOR's) PRN. OCCUPATIONAL THERAPY EVALUATION COMPLEXITY Identifying and reporting the complexity level o f an evaluation focuses on the first three of these factors--profile and hi story, assessment and determination of deficts, and clinical decision making. These three factors must be scored and defensible documentation wr itten to support the choice of a level. 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, DM, Hx Pressure Injury Cognition: Dementia 5 or more performance deficits (High complexity) LEVEL OF CLINICAL DECISION MAKING Commorbidities affect occupational performance: Yes (moderate or high complexity) Modifications of tasks or assistance to enable completion of evaluation: Significant modifications (high complexity) Comprehensive assessment(s), consideration of mu tiple treatment options, may present with comorbidities and significant m odifications of tasks or assistance.(High complexity) HIGH COMPLEXITY Review of medical/or therapy records and extensi ve additional review of physical, cognitive, or psychosocial history rel ated to current functional performance. An assessement(s) that ident ifies 5 or more performance deficits that result in activity limitation and/or participating restric tions. Analysis of the occupational profile, analysis o f date from comprehensive assessment(s), and consideration of multiple pamela atment options. Patient may present with comorbidities that affe ct occupational performance. Significant modifications of tasks or assistance with assessment(s) is necessary to enable completion of evaluation component. /el/ [facility] GREEN/Kateryna,ATP,[place] OCCUPATIONAL THERAPIST Signed: 06/08/2022 14:57 Receipt Acknowledged By: 06/08/2022 15:30 /es/ SHANTAL HANSON PA-C PHYSICIAN CRITICAL CARE PHYSICIAN [facility] 06/08/2022 ADDENDUM STATUS: COMPLETED Assistive Technology Program OUTCOME MEASURE Today's Date: JUN 08, 2022 Client Name: JIE DEGROOT Date of : Apr Diagnosis: [X SCI [] MS [] ALS [] TBI [] CVA [] AMP [] Other: Assistive Device (Describe Fully): Godfrey Invacare 450 Patient Lift EFFECTIVENESS: Psychosocial Impact of Assistive Devices Scale Each word or phrase below describes how using an assistive device may affect a user. For each word or phrase, put an X in the appropriate box to show how you are affected by using your assistive device. [place]: Decreases -3 -2 -1 0 1 2 3 Increases <- [ ] [ ] [ ] [X] [ ] [ ] [ ] -> SATISFACTION: [place] User Evaluation of Satisfac tion with Assistive Technology Rate your satisfaction with your assistive devic e and the related services you experienced: Please santee sioux or lawrence the one joesph r that best describes your degree of satisfaction with each item. For any i tem that you were not very satisfied, please comment in the section comments. Item 8. How satisfied are you with how effective your device is (the degree to which your device meets your needs)? [ ] 5 - Very satisfied [ ] 4 - Quite satisfied [X] 3 - More or less satisfied [ ] 2 - Not very satisfied [ ] 1 - Not satisfied at all Comments: Initially it met our needs but things are becomi ng more and more complicated. Item 11. How satisfied are you with the quality of the professional services (information, attention) you received for using your assistive device? [ ] 5 - Very satisfied [ ] 4 - Quite satisfied [X] 3 - More or less satisfied [ ] 2 - Not very satisfied [ ] 1 - Not satisfied at all Comments: /el/ TIM MCKINLEY OTR/L,ATP,SMS OCCUPATIONAL THERAPIST Signed: 06/08/2022 15:00 Receipt Acknowledged By: * AWAITING SIGNATURE * JOSE OTERO 06/08/2022 ADDENDUM STATUS: COMPLETED Consult placed to SCI OT/PT for evaluation and c are /el/ SHANTAL HANSON PA-C PHYSICIAN CRITICAL CARE PHYSICIAN [facility] Signed: 06/08/2022 15:31
--- OUTSIDE RECORDS SUMMARY | 2022-06-20 02:21 | XMS_ITS | Encounter Summary ---
:1945 Author Organization [facility] Address [address], [place] [address] Care Team Providers Name Role Phone Franklin Squires MD Primary Care Provider Reason for Visit Reason Comments Forms Encounter Details Date Type Department Care Team Description 12/10/2017 Telephone [facility] Neuroscience May Dallas MD Forms Center Physical Medi cine [address] [place] [place] [address] [place] [address] [phone] Social History Tobacco Use Types Packs/Day Years Used Date Smoking Tobacco: Never Smokeless Tobacco: Never Alcohol Use Standard Drinks/Week Comments No 0 (1 standard drink = 0.6 oz pure alcoho l) Sex Assigned at Date Recorded Male 08/06/2021 5:59 PM CDT documented as of this encounter Nursing Notes Mandy Montalvo - 12/11/2017 9:37 AM CST Faxed back to [facility] and copy sent to scan in right fax SAMPLER May Randle MD - 12/11/2017 8:00 AM CST Done. May Randle MD SAMPLER Kaleigh Shah RN - 12/10/2017 1:51 PM [facility] On desk Kaleigh Shah, RN 12/10/2017, 1:51 PM SAMPLER documented in this encounter Plan of Treatment Not on filedocumented as of this encounter Visit Diagnoses Not on filedocumented in this encounter Care Teams Farm Machine Tender Relationship Specialty Start Date End Date Franklin Squires MD PCP - General Family Practice 03/08/[address] [place] [address] documented as of this encounter
--- OUTSIDE RECORDS SUMMARY | 2022-06-20 02:21 | XMS_ITS | Encounter Summary ---
:1945 Author [facility] Address [address], [place] [address] Care Team Providers Name Role Phone Franklin Squires MD Primary Care Provider Reason for Visit Reason Comments Orders Needed Encounter Details Date Type Department Care Team Description 06/16/2018 Telephone [facility] Neuroscience Garry Merida MD Orders Needed Center Neurosurgery/Ortho [address] [place] [address] [place] [address] [phone] Social History Tobacco Use Types Packs/Day Years Used Date Smoking Tobacco: Never Smokeless Tobacco: Never Alcohol Use Standard Drinks/Week Comments No 0 (1 standard drink = 0.6 oz pure alcoho l) Sex Assigned at Date Recorded Male 08/06/2021 5:59 PM CDT documented as of this encounter Nursing Notes Emily Fernando - 06/16/2018 2:06 PM CDT Spoke with Heather (spouse), scheduled f/u in September and schedule CT with Radiology. Emily Fernando 06/16/2018, 2:06 PM Selene Johnson RN - 06/16/2018 1:11 PM CDT Per plan of care from TE in August of [address] thoracic myelogram and a follow up with for follow up on spinal ependymoma. Patient had DCS placed that is not MRI compatible. Order placed.Selene Johnson RN 06/16/2018, 1:12 PM Antonette Chávez - 06/16/2018 10:24 AM CDT Patient is due for a two year f/u with CT Myelogram Prior please place order for the CT Myelogram documented in this encounter Plan of Treatment Not on filedocumented as of this encounter Visit Diagnoses Diagnosis Spinal cord ependymoma ([facility]) - Primary Malignant neoplasm of spinal cord documented in this encounter Care Teams Men'S Golf Coach Relationship Specialty Start Date End Date Franklin Squires MD PCP - General Family Practice 03/08/[address] [place] [phone] documented as of this encounter
--- OUTSIDE RECORDS SUMMARY | 2022-06-20 02:21 | XMS_ITS | Encounter Summary ---
:1945 Author [facility] Address [address], [place] [address] Care Team Providers Name Role Phone Franklin Squires MD Primary Care Provider Encounter Details Date Type Department Care Team Description 08/13/2016 Therapy External to Physical Therapy, Provider Social History Tobacco Use Types Packs/Day Years Used Date Smoking Tobacco: Never Smokeless Tobacco: Never Alcohol Use Standard Drinks/Week Comments No 0 (1 standard drink = 0.6 oz pure alcoho l) Sex Assigned at Date Recorded Male 08/06/2021 5:59 PM CDT documented as of this encounter Plan of Treatment Not on filedocumented as of this encounter Visit Diagnoses Not on filedocumented in this encounter Care Teams Assembler Installer Structures Relationship Specialty Start Date End Date Franklin Squires MD PCP - General Family Practice 03/08/[address] [place], [place] [address]sal[facility] [place] [address] documented as of this encounter
--- OUTSIDE RECORDS SUMMARY | 2022-06-20 02:21 | XMS_ITS | Encounter Summary ---
:1945 Author Organization [facility] Address [address], [place] [address] Care Team Providers Name Role Phone Franklin Squires MD Primary Care Provider Encounter Details Date Type Department Care Team Description 12/11/2017 [facility] Neuroscience [place] MD [place] Physical [facility] [address] [place] [address] [phone] Social History Tobacco Use Types Packs/Day Years [...] on filedocumented in this encounter Care Teams Network Intern Relationship Specialty Start Date End Date Franklin Squires MD PCP - General Family Practice 03/08/[address] [place], [place] [address] Wong [id number] documented as of this encounter
--- OUTSIDE RECORDS SUMMARY | 2022-06-20 02:21 | XMS_ITS | Clinical Summary ---
:1945 Author Organization [facility] Address [address], [place] [address] Care Team Providers Name Role Phone Franklin Squires MD Primary Care Provider Source Comments You are receiving this document as you are listed as the primary care provider,follow-up provider, or the patient has been referred to you for consultation.This is in compliance with the Medicare and Medicaid EHR Incentive Program,which states Providers who transition their patient to another setting of careor provider of care or refers their patient to another provider of care shouldprovide summarycare record for each transition of care or referral. [facility] Allergies Active Allergy Reactions Severity Noted Date Comments Amoxicillin Rash 06/07/2015 Metolazone Itching 02/21/2017 Morphine And Related Other, see comments 02/21/2017 confusion Penicillins Rash 10/21/2014 Piperacillin Sod-Tazobactam So Unknown 02/21/2017 Piperacillin-Tazobactam In Dex Rash 02/21/2017 Sulfasalazine Rash 06/07/2015 Sulfa Antibiotics Rash 04/27/2010 Medications Medication Sig Dispensed Refills Start Date End Date Status Multiple Take 1 Tab by 0 Active Vitamins-Minerals mouth daily. (CENTRUM SILVER OR) LORazepam (AKA ATIVAN) Take 0.5 mg by 0 Active 0.5 MG tablet mouth every 4 hours as needed for Anxiety. warfarin (AKA Take 1 tablet 0 Ac tive COUMADIN) 5 MG (5mg) by mouth on tabletIndications: Mondays and take Deep Vein Thrombosis 1.5 tablets (7.5mg) all other days of the week Indications: Blood Clot in a Deep Vein buPROPion (AKA Take 1 Tab by 0 10/21/2014 Active WELLBUTRIN SR) 150 MG mouth two times a 12 hour release day. Indications: tabletIndications: Major Depressive Major Depressive Disorder Disorder atorvastatin (LIPITOR) Take 1 Tab by 30 Tab 11 10/21/2014 Active 40 MG mouth daily. tabletIndications: Indications: high high Choelsterol Choelsterol polyethylene glycol Take 1 Packet by 10 Each 2 10/21/2014 Active (AKA MIRALAX) mouth daily. packetIndications: Indications: Constipation Constipation baclofen (AKA Take 2 Tabs by 90 Tab 0 10/21/2014 Active LIORESAL) 20 MG mouth three times tabletIndications: a day. Muscle Spasticity Indications: Muscle Spasticity cholecalciferol (AKA Take 2 Tabs by 60 Tab 11 10/21/2014 Active VITAMIN D3) 1000 UNITS mouth daily. tabletIndications: Indications: Vitamin D Deficiency Vitamin D Deficiency furosemide (LASIX) 40 Take 40 mg by 0 Active MG tablet mouth two times a day. DULoxetine (AKA Taking 4 tabs in 0 Active CYMBALTA) 20 MG morning and 2 tabs capsule in afternoon Potassium Chloride Takes 40 meq twice 0 Active (KLOR-CON OR) daily gabapentin (AKA TAKE 1 CAPSULE 270 Cap 0 09/02/2015 Active NEURONTIN) 400 MG THREE TIMES A DAY capsule FOR PAIN OXYCODONE HCL OR as needed. 0 Ac tive sennosides-docusate Take 1 Tab by 0 Active sodium (SENOKOT S) mouth daily. 8.6-50 MG per tablet HYDROcodone-acetaminop Take 1 Tab by 0 07/19/2016 Active hen (NORCO) 10-325 MG mouth. tablet fludrocortisone Take 100 mcg by 0 Active (FLORINEF) 0.1 MG mouth. tablet Active Problems Problem Noted Date Cataract 10/21/2015 Carpal tunnel syndrome 10/21/2015 Bilateral carpal tunnel syndrome 06/29/2015 Thrombophlebitis of deep veins of lower extremity 04/11 Paraplegia 03/30/2015 Osteoporosis 03/30/2015 Back pain, chronic 03/30/2015 Encounter for long-term (current) use of medications 1 Overview: Overview: Signed 11/13/2011 Bianka Chavez RN............09/02/2014 1 0:04 AM ; Encounter for long-term (current) use of other medications Encounter for long-term (current) use of medications 1 Overview: Overview: Signed 11/13/2011 Bianka Chavez RN............09/02/2014 1 0:04 AM Subdural hematoma 08/20/2014 Tinnitus of both ears 06/10/2014 Overview: Overview: Began 3-4 weeks ago Bilateral sensorineural hearing loss 06/10/2014 Sensorineural hearing loss (SNHL) of both ears 014 History of anticoagulant therapy 02/17/2014 retirement current use of anticoagulant therapy 014 Anxiety 03/23/2013 Vitamin D deficiency 08/10/2011 Hyperparathyroidism 08/07/2011 Peripheral edema 06/09/2010 Fever 05/04/2010 Bacterial meningitis 05/04/2010 Overview: Probable Bacterial Meningitis 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 Resolved Problems Problem Noted Date Resolved Date Gait abnormality 01/17/2012 02/09/2015 Back pain 01/17/2012 02/09/2015 Paraplegia 04/04/2011 02/09/2015 Osteoporosis 03/06/2011 02/09/2015 Urinary tract infection 12/24/2006 03/28/2016 Immunizations Name Administration Dates Next Due Flu Vac (3+ yrs) 10/06/2009 H1n1 Miv Csl 3+ Yr (Injected) 12/06/2009 Influenza, Unspecified Formulation 08/11/2014 PPSV23 (Pneumovax) 10/06/2009 Family History Medical History Relation Name Comments Cancer, Colon Mother Osteoporosis Mother no history of fr actures Cancer, Other Brother brother with thr oat cancer Cancer, Breast Sister Relation Name Status Comments Mother Brother Sister Social History Tobacco Use Types Packs/Day Years Used Date Smoking Tobacco: Never Smokeless Tobacco: Never Alcohol Use Standard Drinks/Week Comments No 0 (1 standard drink = 0.6 oz pure alcoho l) Sex Assigned at Date Recorded Male 08/06/2021 5:59 PM CDT Last Filed Vital Signs Vital Sign Reading Time Taken Comments Blood Pressure 120/63 01/18/2022 12:59 PM [facility] Pulse 87 01/18/2022 12:59 PM [facility] Temperature 36.3 ??C (97.4 ??F) 01/18/2022 12:59 PM [facility] Respiratory Rate 16 05/24/2016 4:27 PM CDT Oxygen Saturation 98% 05/24/2016 4:27 PM CDT Inhaled Oxygen Concentration - - Weight 108.9 kg (240 lb) 05/23/2016 2:34 PM CDT Height 175.3 cm (5' 9) 05/23/2016 2:34 PM CDT Body Mass Index 35.44 05/23/2016 2:34 PM CDT Plan of Treatment Health Maintenance Due Date Last Done Comments Diabetes: Eye Exam 1945 Diabetes: Foot Exam 1945 Diabetes: Lipid Panel 1945 Diabetes: Urine 1945 Microalbumin Hep C Screening (Preventive 1945 Services) Medicare Annual Wellness 1945 Visit COVID-19 Vaccine (#1) 1945 HepB (1) 1965 Diabetes: HGBA1C 10/28/2014 07/29/2014 Zoster/Shingles (2 of 3) 01/11/2016 11/16/2015, 03/23/2013 Diabetes: Creatinine 01/06/2017 01/06/2016, 06/07/2015, 10/21/2014, Additional history exists DTaP/Tdap/Td (2 - Tdap) 06/28/2021 06/28/2011 Influenza (#1) 2022 09/03/2021, 08/19/2020, 08/20/2019, Additional history exists Pneumococcal 65+ Yrs Completed 10/19/2015, 08/13/2011, 10/06/2009, Additional history exists HepA Aged Out No longer eligib le based on patient 's age to complete this topic Hib Aged Out No longer eligib le based on patient 's age to complete this topic IPV (Polio) Aged Out No longer eligib le based on patient 's age to complete this topic MCV4 Aged Out No longer eligib le based on patient 's age to complete this topic Medical Devices Implanted Type Area Elevator Repairer Apprentice Device Shelf Model / Identifier Expiration Serial / Date Lot [id number] 4ml [employer]isseel [employer] N/A: Lynne Fenwall 08/13 [id number] / Implanted: Qty: 1 on 04/11/2010 at [facility] NECK [id number] / Explanted: at [facility] (Quantity not on file) [id number] Description: posterior Cath Intrathecal Indura - [id number] DEVICE Right: LUMBAR [employer] 01/18/2012 [id number] / Implanted: Qty: 1 on 05/09/2010 at [facility] SPINE Carlos N/A / [id number] Cath Intrathecal Indura - [id number] DEVICE [employer] [id number] / Implanted: Qty: 1 on 05/29/2010 at [facility] Carlos / Plt Lcp M/Prox Lt 3.5x94 4h - [id number] DEVICE Left: TIBIA [employer] [id number] / Implanted: Qty: 1 on 03/13/2011 at [facility] PROXIMAL NONE / NONE Scr Matrix Sfdr 4mm - [id number] DEVICE Right: SKULL [employer] [id number] / Implanted: Qty: 6 on 07/28/2014 by Cooper Shelley MD at [facility] ITAL / Lead Linear 3-4 8 Contact 50cm - [id number] DEVICE N/A: OTHER-SEE [place] [employer] 09/10/2017 [id number] / Implanted: Qty: 1 on 03/08/2016 by Zelalem Cohen DO at [facility] DESCRIPTION Neuro Surg / [id number] Description: LUMBAR [place] [employer] - [id number] DEVICE N/A: SPINE LUMBAR [place] [employer] 02/28/2018 [id number] / Implanted: Qty: 1 on 05/24/2016 by Zelalem Cohen DO at [facility] Neuro Surg / [id number] Insurance Payer Benefit Plan / Subscriber ID Effective Dates Phone Addre ss Type Group MEDICARE MEDICARE [id number] 2002-Hodan Vitale dicare nt FOR [id number] 2004-[place] [phone] [phone] [facility] [address] [place] [address] Advance Directives Latest Code Status on File Code Status Date Activated Date Inactivated Comments Full Code 05/24/2016 10:29 AM 05/24/2016 8:28 PM Full Code 03/08/2016 5:56 AM 03/08/2016 2:53 PM Full Code 10/20/2014 6:21 PM 10/21/2014 2:47 PM Full Code 07/28/2014 6:50 PM 08/02/2014 8:36 PM Full Code 07/28/2014 5:44 PM 07/28/2014 6:50 PM Care Teams Pulp Plant Supervisor Relationship Specialty Start Date End Date Franklin Squires MD PCP - General Family Practice 03/08/[address] [place] [address] [place] [id number]
--- OUTSIDE RECORDS SUMMARY | 2022-06-20 02:21 | XMS_ITS ---
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 Current Oncology Plans No current plan information found. Past Plans Radiation Treatments No radiation treatments are documented for this patient in [facility]. Treatments may have been administered in another system. Resolved Problems Problem Noted Date Resolved Date Gait abnormality 01/17/2012 02/09/2015 Back pain 01/17/2012 02/09/2015 Paraplegia 04/04/2011 02/09/2015 Osteoporosis 03/06/2011 02/09/2015 Urinary tract infection 12/24/2006 03/28/2016
--- OUTSIDE RECORDS SUMMARY | 2022-06-20 02:21 | XMS_ITS | Encounter Summary ---
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 [place], [place] Neurogenic bowel; [place] [id number] Neurogenic bladder; [phone] Spasticity; (Work) Autonomic dysfunction; [phone] DM II (diabetes mellitus, type II) (HR); (Fax) Colostomy statu s (HR); Pressure injury of skin of sacral region, unspecified injury stage (HR) Social History Tobacco Use Types Packs/Day Years Used Date Smoking Tobacco: Never Smokeless Tobacco: Never Alcohol Use Standard Drinks/Week Comments No 0 (1 standard drink = 0.6 oz pure alcoho l) Sex Assigned at Date Recorded Male 08/06/2021 5:59 PM CDT documented as of this encounter Last Filed Vital Signs Vital Sign Reading Time Taken Comments Blood Pressure 137/70 08/09/2021 8:33 AM CDT Pulse 80 08/09/2021 8:33 AM CDT Temperature - - Respiratory Rate - - Oxygen Saturation - - Inhaled Oxygen Concentration - - Weight - - Height - - Body Mass Index - - documented in this encounter Patient Instructions Patient InstructionsMay Randle MD - 08/09/2021 8:45 AM CDT Reason for today's visit: followup SCI Your diagnosisthoracic paraplegia Tests that you will need: none Treatment plan: try Senna-S1 twice a day to loosen stools- if needed can go to 2 twice a day' Please tilt your chair every 1-2 hours throughout the day-this will help your skin ,your back pain ,and hopefully your blood pressure-when watching Try to do weight shifts-lean one way or the other or do a pushup every 1-2 hours also We can consider Tizanidine for your spasms if the above is not helpful Take your blood pressure machine to an appointment And be sure it is accurate- have them check it with their macjhine and yours Follow up: 3-4 months can be virtual If tests are needed, you will receive your test results either by phone, by letter and/or if you aresigned up for on-line services, by email. If there are serious findings, you typically will be called. If you have any questions about your visit, your symptoms, your medication, your test results or it is not clear what your diagnosis or treatment plan is please contact us at [phone] or send us a secure message via [employer]. If you need follow-up in the future, please call [phone] for an appointment. If you cannot get a time that satisfies you, please let us know what times work for you and we will do our best to accommodate you. Thank you for choosing May Randle MD and [facility] Physical Medicine and Rehabilitation. Autonomic dysreflexia??--??SCI above T6 may be complicated by a phenomenon known as autonomic dysreflexia, a manifestation of the loss of coordinated autonomic responses to demands on heart rate and vascular tone [7,8]. Uninhibited or exaggerated sympathetic responses to noxious stimuli below the level of the injury lead to diffuse vasoconstriction and hypertension. A compensatory parasympathetic response produces bradycardia and vasodilation above the level of the lesion, but this is not sufficientto reduce elevated blood pressure. SCI lesions lower than T6 do not produce this complication, because intact splanchnic innervation allows for compensatory dilatation of the splanchnic vascular bed. The estimated frequency of this complication is quite variable, ranging from 20 to 70 percent of patients with SCI lesions above T6 [7,8]. Autonomic dysreflexia is unusual within the first month of SCIbut usually appears within the first year [9,10]. Typical stimuli include bladder distention, bowel impaction, pressure sores, bone fracture, or occult visceral disturbances [7,8]. Sexual activity can be a trigger. Autonomic dysreflexia can also complicate medical procedures, as well as labor and delivery. (See Neurologic disorders complicating , section on 'Spinal cord injury'.) Common clinical manifestations are headache, diaphoresis, and increased blood pressure [9]. Because blood pressures are often low in patients with quadriplegia, elevated blood pressures may not be recognized in this setting unless compared with baseline levels. Flushing, piloerection, blurred vision, n jimmy obstruction, anxiety, and nausea may also occur. Bradycardia is common; however, some patients have tachycardia instead. The severity of attacks ranges from asymptomatic hypertension to hypertensive crisis complicated by profound bradycardia and cardiac arrest or intracranial hemorrhage and seizures. The severity of the SCI influences both the frequency and severity of attacks. Management of acute attacks includes [7,9]: ?Measuring and monitoring blood pressure. ?Immediately sitting the patient upright to orthostatically lower blood pressure. ?Removal of tight-fitting garments. ?Searching for and correcting noxious inciting stimuli. Bladder distension and fecal impaction are the most common precipitants. Bladder catheterization and evaluation for urinary tract infection (UTI)should be undertaken; indwelling catheters should be checked for obstruction, and a rectal examination should be performed. ?Prompt reduction of blood pressure with a rapid-onset/short-duration agent, depending on the severity of attack and response to above measures. Medications often used in this setting include nitrates (1 inch, 2 percent nitropaste), nifedipine (10 mg oral), intravenous hydralazine (10 mg), and intravenous labetalol (10 mg). Nitrates should be avoided in patients who may be using sildenafil for erectile dysfunction. Recognition and avoidance of inciting stimuli are important in preventing attacks. Nifedipine, prazosin, and terazosin have been reported to prevent an attack when administered prophylactically; botulinum toxin used to treat bladder dysfunction in SCI may also be effective in reducing attacks [7,8,11-13]. documented in this encounter Progress Notes May Randle MD - 08/09/2021 8:45 AM CDT Jeff Cullen is a 76 y.o. old male with thoracic paraplegia last seen in this clinic in 2014. He is accompanied to clinic today by his and is seen for a number of reasons. They continue to live independently in their own home. His provides a significant amount of hiscare. He is able to help with sliding board transfers. He notes he awakens in the morning and she actually brings in medications and breakfast to him. He then gets up in his chair in his up throughout the day until evening. He does have a power chair and is able to tilt that but it does not sound as though he is doing this routinely. He also has a manual chair that he uses infrequently. He continues to have chronic pain primarily low back pain. He has seen Dr. Cohen in the Pain Department for this. We have noted again that tilting and changing position throughout the day might be more helpful for this. Additionally he has had recent increase in spasticity in both lower extremities. Note that he has a long history of spasticity and at 1 point had an intrathecal baclofen pump which required removal because of meningitis.. She notes a number of hospitalizations over the past year for sepsis normally urosepsis. He has now been placed on prophylactic Keflex and they feel this is helping more. During the day he likes to be up in his power chair in his garage ???tinkering?? his notes that he helps a lot around the house in terms of cleaning. At night he tends to sit and watch television. Recently she has documented a pattern all very low blood pressure in the morning but by the time he goes to bed very high blood pressure. The 1st time she noted this was after a catheter change. Most of these times are not related to any particular event. She notes as well that when he 1st awakens in the morning his blood pressure is high but after he turns and then gets up it is low. She notes flushing of his face and sweating. His physician has put him on amlodipine 2.5 mg daily. She also notes that he has been more cold of late. We did discuss getting a thyroid evaluation but did not do so. Since I last saw him when he had right shoulder pain this has resolved. He also had some type of rhizotomy for pain. Note bowel is emptied via colostomy however he does note that he has ???hard chunks in the bag whichcould be leading to some incidence of autonomic dysreflexia. He now has a suprapubic tube rather than a De La Cruz and feels he has had more infections with this than with the De La Cruz. He also has had anepisode of paroxysmal atrial tachycardia. She notes that he had what was a small blood blister that grew and became necrotizing fasciitis witha large wound. He was at bedrest most of 2017 and 2018. His skin in the sacral area has healed however he has an open slipped right now and it tends to open easily. He does sit on a Roho cushion. Most of this hospitalization was through [place]. Other hospitalizations have been through [facility] in [place]. He has been diagnosed with diabetes but this is fairly well controlled at this point. At home he has a hospital bed. He has both a manual and power chair. He does take extra-strength Tylenol for pain. Dr. Newby has had him on OxyContin. He gets 45 mg in the morning and 32 in the evening. His chair is managed by [facility] near where they live Per previous is accompanied to clinic today by his . He was seen again because of concerns about obtaining a new power wheelchair. He is also seen in followup of issues including spasticity, back pain, neurogenic bowel and wheelchair positioning. He was last seen in this clinic in August 2013. He has a history of thoracic ependymoma with thoracic paraplegia, neurogenic bowel and bladder. When I last saw him I had recommended physical therapy evaluation for a new power wheelchair. As will be noted below we have had ongoing issues obtaining appropriate positioning for him. When he goes out he uses a Hoveround wheelchair which dates back to 2007. In his home he uses a manual wheelchair. He is in need of a new power wheelchair to use in both settings. After my last referral he was seen by physical therapy and did do some trial in-home wheelchairs. He had hope to obtain a power elevator on the wheelchair but this was denied by insurance. At this point they are more interested in gettinghim a wheelchair and have decided they will leave this request out of the chair. He does help with tr stephanie but also needs the assistance of his to do transfers. It is noted that he does have history of thoracic paraplegia so requires a wheelchair in all settings. He has had significant issues with upper extremity function as well and therefore is in need of a power chair rather than manual. He lives in his home with his who is his only care provider. He is in need of a chair that allows him to tilt to change position as since I last saw him he has had issues with skin pressure. Since I last saw him he has had multiple medical issues including a subdural hematoma followed by stopping his anticoagulants with resultant recurrence of significant deep vein thrombosis. He has had sepsis. He has ongoing significant back and is followed by Dr. Cohen. He has had procedures through [facility] including nerve blocks and his notes they are presently waiting on a rhizotomy He has a colostomy for bowel management. Bladder management is via indwelling catheter . He reports in the evening he is normally in bed because he is not comfortable in either of his chairs. He has tried this chair and finds it to be a better fit for him He recently developed pressure on the bottom of his feet when he had significant edema following hisdeep vein thromboses and needed to use his Hoveround because his other wheelchair was not available He has a history of thoracic ependymoma for a number of years and initially had his rehabilitation at [facility]. At that point he was still ambulatory and was discharged with a Breezy manual wheelchair. He did not need customized seating because he essentially used a wheelchair for transportation. Over the ensuing years he became progressively less mobile and lost function of his lower extremities. In 2010 he was hospitalized for surgical treatment of bilateral femoral condyle fractures and left tibia fracture. Ultimately we did evaluate him for both a new power chair as well as a manual chair. At that point he found a power chair too difficult to use in his home and preferred to get a new manual chair whichhe purchased privately as he did not think insurance would cover..As noted he they have since determined that they are in need of a power chair to help with mobility and positioning -he has tried a permobile and is able to use this in the home. He has difficulty with a manual chair secondary to his right shoulder pain andn his left ulnar bursitis Following his subdural hematoma, his feels that he is doing reasonably well cognitively but notes that he has been more irritable/frustrated: They feel spasticity has generally been well managed He had been seeing Dr. George Bright because of right shoulder pain. He had a recent MRI which showed some calcification in the tendon. He completed physical therapy for this. He also had difficulty with left elbow bursitis was seen in therapy and had injections . 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 It also showed evidence of mild bilateral greater trochanter or status versus mild tenderness strain at the gluteal insertions. Additionally there was mild edema within the iliac is muscles bilaterally right greater than left probably secondary to mild muscle strain. He is generally sleeping and eating well. He has a history of Bilateral deep vein thrombosis and does remain on Coumadin. He has a history of anxiety for which he was on Ativan. His is home through the day she helps him with many of his cares including his transfers and bowel program. They do not have any other health aide assistance if in the home. . She also helps him in the shower. He has a roll in shower and a bench that he transfers to. Transfers are accomplished via sliding board although a time she notes this can be difficult particularly if he is having difficulty with his shoulder or elbow-we have discussed Kisha lift if needed Current Outpatient Medications Medication Sig Note Dispense Refill ??? polorjtw-lcfvfsevcgskilt-wpgtreebl-magnesium hydroxide-simethicone (AKA MAGIC MOUTHWASH) suspension Take 5 mL by mouth. 02/21/2017: Received from: [facility] ??? atorvastatin (LIPITOR) 40 MG tablet Take 1 Tab by mouth daily. Indications: high Choelsterol 30 Tab 11 ??? baclofen (AKA LIORESAL) 20 MG tablet Take 2 Tabs by mouth three times a day. Indications: MuscleSpasticity 90 Tab 0 ??? buPROPion (AKA WELLBUTRIN SR) 150 MG 12 hour release tablet Take 1 Tab by mouth two times a day.Indications: Major Depressive Disorder ??? Calcium Carbonate-Vitamin D (CALTRATE 600+D) 600-400 MG-UNIT Take 1 Tab by mouth two times a day. ??? Calcium Carbonate-Vitamin D3 (CALCIUM 600-D) 600-400 MG-UNIT TABS Take 1 Tab by mouth. 02/21/2017: Received from: [facility] ??? cholecalciferol (AKA VITAMIN D3) 1000 UNITS tablet Take 2 Tabs by mouth daily. Indications: Vitamin D Deficiency 60 Tab 11 ??? clindamycin (AKA CLEOCIN) 300 MG capsule Take 1 Cap by mouth three times a day. 21 Cap 0 ??? clindamycin (AKA CLEOCIN) 300 MG capsule Take 1 Cap by mouth three times a day. 15 Cap 0 ??? DIAZEpam (AKA VALIUM) 5 MG tablet Take 1 Tab by mouth . 6 hours prior to MRI and 1 hour prior toMRI (Patient not taking: Reported on 08/09/2021) 2 Tab 0 ??? Docusate Sodium 100 MG Take 100 mg by mouth. 02/21/2017: Received from: [facility] ??? DULoxetine (AKA CYMBALTA) 20 MG capsule Taking 4 tabs in morning and 2 tabs in afternoon ??? fludrocortisone (FLORINEF) 0.1 MG tablet Take 100 mcg by mouth. 02/21/2017: Received from: [facility] ??? furosemide (AKA LASIX) 20 MG tablet Take 1 Tab by mouth daily as needed (Edema). 30 Tab 11 ??? furosemide (LASIX) 40 MG tablet Take 40 mg by mouth two times a day. ??? gabapentin (AKA NEURONTIN) 400 MG capsule TAKE 1 CAPSULE THREE TIMES A DAY FOR PAIN 270 Cap 0 ??? Generic Medication (COMPOUNDED CREAM) Apply 1-2 grams to the lower back TID prn. 250 g 6 ??? glycerin adult ([facility] GLYCERIN ADULT) 2 G suppository Insert 1 Suppository rectally. 02/21/2017: Received from: [facility] ??? HYDROcodone-acetaminophen (NORCO) 10-325 MG tablet Take 1 Tab by mouth. 02/21/2017: Received from: [facility] ??? HYDROXYZINE HCL OR ??? lidocaine (AKA LIDODERM) 5 % patch Apply 2 Patches to skin . Apply once for up to 12 hrs within a 24 hr period. 60 Patch 1 ??? lidocaine (AKA XYLOCAINE) 5 % ointment Apply to the lower back TID prn 30 g 0 ??? lisinopril (ZESTRIL) 2.5 MG tablet Take 2.5 mg by mouth. 02/21/2017: [facility] ??? LORazepam (AKA ATIVAN) 0.5 MG tablet Take 0.5 mg by mouth every 4 hours as needed for Anxiety. ??? magnesium citrate (MAGNESIUM CITRATE) solution Take 296 mL by mouth once. 4 hours before your procedure ? ? MAGNESIUM CITRATE OR Take 80-300 mL by mouth. 02/21/2017: Received from: [facility] ??? Multiple Vitamins-Minerals (CENTRUM SILVER OR) Take 1 Tab by mouth daily. ??? niacin 500 MG tablet Take 1 Tab by mouth daily with breakfast. Indications: High Amount of Cholesterol in the Blood ??? OXYCODONE HCL OR ??? polyethylene glycol (AKA MIRALAX) packet Take 1 Packet by mouth daily. Indications: Metqilerkzuz30 Each 2 ??? Potassium Chloride (KLOR-CON OR) Takes 40 meq twice daily ??? raNITIdine (ZANTAC) 150 MG tablet Take 150 mg by mouth. 02/21/2017: Received from: [facility] ??? sennosides-docusate sodium (SENNA-DOCUSATE) 8.6-50 MG tablet Take 1 Tab by mouth daily. ??? sennosides-docusate sodium (SENOKOT S) 8.6-50 MG per tablet Take 1 Tablet by mouth two times a day. Can go to 2 bid as needed to make stools looser Indications: Constipation 125 Tablet 11 ??? testosterone (ANDRODERM) 4 MG/24HR patch 1 Patch. 02/21/2017: Received from: [facility] ? ? triamcinolone acetonide (KENALOG) 0.1 % cream 02/21/2017: Received [facility]: [facility] ??? trimethoprim (AKA TRIMPEX) 100 MG tablet Take 100 mg by mouth daily. ??? warfarin (AKA COUMADIN) 5 MG tablet Take 1 tablet (5mg) by mouth on Mondays and take 1.5 tablets(7.5mg) all other days of the week Indications: Blood Clot in a Deep Vein 10/20/2014: Patient statesthis medication was restarted in Oct No current facility-administered medications for this visit. He continues to follow with Dr. Neff in neurosurgery regarding the thoracic tumor Current Outpatient Medications Medication Sig Note Dispense Refill ??? zyhirqkd-kgmdptwilxtsdbd-igtjleixe-magnesium hydroxide-simethicone (AKA MAGIC MOUTHWASH) suspension Take 5 mL by mouth. 02/21/2017: Received [facility]: [facility] ??? atorvastatin (LIPITOR) 40 MG tablet Take 1 Tab by mouth daily. Indications: high Choelsterol 30 Tab 11 ??? baclofen (AKA LIORESAL) 20 MG tablet Take 2 Tabs by mouth three times a day. Indications: MuscleSpasticity 90 Tab 0 ??? buPROPion (AKA WELLBUTRIN SR) 150 MG 12 hour release tablet Take 1 Tab by mouth two times a day.Indications: Major Depressive Disorder ??? Calcium Carbonate-Vitamin D (CALTRATE 600+D) 600-400 MG-UNIT Take 1 Tab by mouth two times a day. ??? Calcium Carbonate-Vitamin D3 (CALCIUM 600-D) 600-400 MG-UNIT TABS Take 1 Tab by mouth. 02/21/2017: [email or web address] ??? cholecalciferol (AKA VITAMIN D3) 1000 UNITS tablet Take 2 Tabs by mouth daily. Indications: Vitamin D Deficiency 60 Tab 11 ??? clindamycin (AKA CLEOCIN) 300 MG capsule Take 1 Cap by mouth three times a day. 21 Cap 0 ??? clindamycin (AKA CLEOCIN) 300 MG capsule Take 1 Cap by mouth three times a day. 15 Cap 0 ??? DIAZEpam (AKA VALIUM) 5 MG tablet Take 1 Tab by mouth . 6 hours prior to MRI and 1 hour prior toMRI (Patient not taking: Reported on 08/09/2021) 2 Tab 0 ??? Docusate Sodium 100 MG Take 100 mg by mouth. 02/21/2017: Received from: [facility] ??? DULoxetine (AKA CYMBALTA) 20 MG capsule Taking 4 tabs in morning and 2 tabs in afternoon ??? fludrocortisone (FLORINEF) 0.1 MG tablet Take 100 mcg by mouth. 02/21/2017: Received from: [facility] ??? furosemide (AKA LASIX) 20 MG tablet Take 1 Tab by mouth daily as needed (Edema). 30 Tab 11 ??? furosemide (LASIX) 40 MG tablet Take 40 mg by mouth two times a day. ??? gabapentin (AKA NEURONTIN) 400 MG capsule TAKE 1 CAPSULE THREE TIMES A DAY FOR PAIN 270 Cap 0 ??? Generic Medication (COMPOUNDED CREAM) Apply 1-2 grams to the lower back TID prn. 250 g 6 ??? glycerin adult ([facility] GLYCERIN ADULT) 2 G suppository Insert 1 Suppository rectally. 02/21/2017: Received from: [facility] ??? HYDROcodone-acetaminophen (NORCO) 10-325 MG tablet Take 1 Tab by mouth. 02/21/2017: Received from: [facility] ??? HYDROXYZINE HCL OR ??? lidocaine (AKA LIDODERM) 5 % patch Apply 2 Patches to skin . Apply once for up to 12 hrs within a 24 hr period. 60 Patch 1 ??? lidocaine (AKA XYLOCAINE) 5 % ointment Apply to the lower back TID prn 30 g 0 ??? lisinopril (ZESTRIL) 2.5 MG tablet Take 2.5 mg by mouth. 02/21/2017: Received from: [facility] ??? LORazepam (AKA ATIVAN) 0.5 MG tablet Take 0.5 mg by mouth every 4 hours as needed for Anxiety. ??? magnesium citrate (MAGNESIUM CITRATE) solution Take 296 mL by mouth once. 4 hours before your procedure ? ? MAGNESIUM CITRATE OR Take 80-300 mL by mouth. 02/21/2017: Received from: [facility] ??? Multiple Vitamins-Minerals (CENTRUM SILVER OR) Take 1 Tab by mouth daily. ??? niacin 500 MG tablet Take 1 Tab by mouth daily with breakfast. Indications: High Amount of Cholesterol in the Blood ??? OXYCODONE HCL OR ??? polyethylene glycol (AKA MIRALAX) packet Take 1 Packet by mouth daily. Indications: [id number] Each 2 ??? Potassium Chloride (KLOR-CON OR) Takes 40 meq twice daily ??? raNITIdine (ZANTAC) 150 MG tablet Take 150 mg by mouth. 02/21/2017: Received from: [facility] ??? sennosides-docusate sodium (SENNA-DOCUSATE) 8.6-50 MG tablet Take 1 Tab by mouth daily. ??? sennosides-docusate sodium (SENOKOT S) 8.6-50 MG per tablet Take 1 Tablet by mouth two times a day. Can go to 2 bid as needed to make stools looser Indications: Constipation 125 Tablet 11 ??? testosterone (ANDRODERM) 4 MG/24HR patch 1 Patch. 02/21/2017: Received from: [facility] ? ? triamcinolone acetonide (KENALOG) 0.1 % cream 02/21/2017: [facility] ??? trimethoprim (AKA TRIMPEX) 100 MG tablet Take 100 mg by mouth daily. ??? warfarin (AKA COUMADIN) 5 MG tablet Take 1 tablet (5mg) by mouth on Mondays and take 1.5 tablets(7.5mg) all other days of the week Indications: Blood Clot in a Deep Vein 10/20/2014: Patient statesthis medication was restarted in Oct No current facility-administered medications for this visit. Allergies for Jeff Cullen Status Agent Date Noted Reaction Type Active AMOXICILLIN 06/07/2015 Rash Allergy Active METOLAZONE 02/21/2017 Itching Unspecified Active MORPHINE AND RELATED 02/21/2017 Other, see comments Unspecified Active PENICILLINS 10/21/2014 Rash Allergy Active PIPERACILLIN SOD-TAZOBACTAM SO 02/21/2017 Unknown Unspecified Active PIPERACILLIN-TAZOBACTAM IN DEX 02/21/2017 Rash Unspecified Active SULFASALAZINE 06/07/2015 Rash Allergy Active ZAROXOLYN [SULFA ANTIBIOTICS] 04/27/2010 Rash Social History ??? Marital Status: Spouse Name: N/A Number of Children: N/A ??? Years of Education: N/A Occupational History ??? Not on file. Social History Socioeconomic History ??? Marital status: Spouse name: Not on file ??? Number of children: 2 ??? Years of education: Not on file ??? Highest education level: Not on file Occupational History ??? Occupation: [employer] ??? Occupation: [employer] ??? Occupation: retired/disability Tobacco Use ??? Smoking status: Never Smoker ??? Smokeless tobacco: Never Used Substance and Sexual Activity ??? Alcohol use: No ??? Drug use: No ??? Sexual activity: Yes Partners: Female Other Topics Concern ??? Not on file Social History Narrative Wheelchair bound. Able to transfer from bed to wheelchair with assist of 1 at baseline. Lives with his in [place]. Social Determinants of Health Financial Resource Strain: ??? Difficulty of Paying Living Expenses: Food Insecurity: ??? Worried About Running Out of Food in the Last Year: ??? Ran Out of Food in the Last Year: Transportation Needs: ??? Lack of Transportation (Medical): ??? Lack of Transportation (Non-Medical): Physical Activity: ??? Days of Exercise per Week: ??? Minutes of Exercise per Session: Intimate Partner Violence: ??? Fear of Current or Ex-Partner: ??? Emotionally Abused: ??? Physically Abused: ??? Sexually Abused: Family History Problem Relation Age of Onset ??? Cancer, Colon Mother ??? Osteoporosis Mother no history of fractures ??? Cancer, Other Brother brother with throat cancer ??? Cancer, Breast Sister Additional review of systems: . It is noted that he actually had his intrathecal baclofen pump from December of 2006 to summer . Rest of review of systems is covered per the above. Additionallyhis had no issues of skin, or pulmonary function. On examination: Examination reveals an older male in no acute distress. He is alert and oriented x4 he is wearing a mask. Affect is blunted with limited eye contact and per previous his is answering many of the questions for him. He has good upper extremity range of motion and strength bilaterally. In the power chair he can demonstrate that he can lean to the left and right but cannot do a wheelchair pushup. He reports he can do this in his manual chair. He is in a power chair with joystick on the right Examination reveals sensation changes just above the nipple level and he does not have sensation below this. Skin is intact where observed. His however has a picture of his sacral area which reveals a slit like open area and a larger area of scarring He does have bilateral lower extremity edema 1-2+ he does develop clonus in both lower extremities with range of motion. Deep tendon reflexes are brisk. Abdomen colostomy present. 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 Possibly related to chronic pain or open skin areas. Pilar discussed addressing a couple of other issues before considering adding medications. He would likely not be a good candidate to put in a pump again given his episodes of sepsis. We could try adding tizanidine which can also affect blood pressure although would not want him to bottom out 2) power chair now 5 to 6 years old. Has been working for him and Handi continues to follow 3) continue home exercise program 4) discussed hard stool which may be creating noxious stimuli which could increase spasticity as well as we had autonomic dysreflexia. Have ordered senna S1 b.i.d. to increase to 2 b.i.d. if needed also discussed the possibility of MiraLax. He notes he does drink a fair amount of liquid 5) note that Dr. Neff used to routinely gets some re-evaluation on him and will check to see if hewould like this 6) reviewed the importance of frequent tilting throughout the day both to relieve skin pressure and back pain as well as to help to avoid autonomic episodes 7) also discussed doing weight shifts throughout the day 8) suggested she take her blood pressure machine along to an appointment to be sure that it is measuring accurately 9) he will be seen back in follow-up in 3-4 months or sooner on an as-needed basis. We have discussed that this can be virtual if needed 10) consider checking thyroid when next seen 50/80 of today's minutes including review of chart, discussion regarding numerous concerns coordination of care and documentation May Randle MD documented in this encounter Plan of Treatment Not on filedocumented as of this encounter Visit Diagnoses Diagnosis Paraplegia (HRC) - Primary Paraplegia Hypertension, unspecified type (HRC) 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, unspecified site Neurogenic bowel Neurogenic bladder Neurogenic bladder, NOS Spasticity Abnormal involuntary movements Autonomic dysfunction Unspecified disorder of autonomic nervou s system DM II (diabetes mellitus, type II) (HRC) Colostomy status (HRC) Colostomy status Pressure injury of skin of sacral region , unspecified injury stage (HRC) documented in this encounter Care Teams Neighborhood Worker Relationship Specialty Start Date End Date Franklin Squires MD PCP - General Family Practice 03/08/[address] [place] [id number] documented as of this encounter
--- OUTSIDE RECORDS SUMMARY | 2022-06-20 02:21 | XMS_ITS | Encounter Summary ---
:1945 Author Organization [facility] Address [address], [place] [address] Care Team Providers Name Role Phone Franklin Squires MD Primary Care Provider Reason for Visit Reason Comments Surgery, Cancel Encounter Details Date Type Department Care Team Description 09/11/2016 Telephone Specialty Center 401 Garry Neff MD Surgery, Cancel NeuroSurgery [address] [place] [address] [place] [address] [phone] Social History Tobacco Use Types Packs/Day Years Used Date Smoking Tobacco: Never Smokeless Tobacco: Never Alcohol Use Standard Drinks/Week Comments No 0 (1 standard drink = 0.6 oz pure alcoho l) Sex Assigned at Date Recorded Male 08/06/2021 5:59 PM CDT documented as of this encounter Nursing Notes Sweetie Sterling - 09/11/2016 1:01 PM CDT Carpal Tunnel release surgery case cx, patient last seen in January 2016, no updates/response. Pt may be seen in clinic to pursue future treatment. documented in this encounter Plan of Treatment Not on filedocumented as of this encounter Visit Diagnoses Not on filedocumented in this encounter Care Teams Sub Assembly Team Worker Relationship Specialty Start Date End Date Franklin Squires MD PCP - General Family Practice 03/08/[address] [place] [address] [place] [id number] documented as of this encounter
--- OUTSIDE RECORDS SUMMARY | 2022-06-20 02:21 | XMS_ITS | Encounter Summary ---
:1945 [address] [facility] Address [address] [address] Care Team Providers Name Role Phone Franklin Squires MD Primary Care Provider Reason for Visit Reason Comments QUESTIONS, GENERAL Encounter Details Date Type Department Care Team Description 05/28/2016 Telephone Specialty Center 401 Zelalem Cohen , QUESTIONS, GENERAL Interventional Pain DO Management [address] [place] [address] [id number] Social History Tobacco Use Types Packs/Day Years Used Date Smoking Tobacco: Never Smokeless Tobacco: Never Alcohol Use Standard Drinks/Week Comments No 0 (1 standard drink = 0.6 oz pure alcoho l) Sex Assigned at Date Recorded Male 08/06/2021 5:59 PM CDT documented as of this encounter Nursing Notes Mireya Gillette RN - 05/28/2016 1:13 PM CDT Manager Cost spoke to patient and patient Heather States they did speak with Geetha yesterday and adjustments were made, but still having trouble. Message sent to Alvarado at with this update. Patient informed patient and patient a Rep from [employer] will be present for more adjustment if needed. Patient verbalized understanding, denies any other questions or concerns. Mireya Gillette RN Fatimah Mane - 05/28/2016 8:53 AM CDT Pt's called and States she is having a hard time keeping the stimulator charged and wants to know if [employer] is going to be at the appt tomorrow . Pt has questions , also Pt had to remove the tape and is having a hard time getting it to adhere again . Fatimah Mane 05/28/2016, 8:55 AM documented in this encounter Plan of Treatment Not on filedocumented as of this encounter Visit Diagnoses Not on filedocumented in this encounter Care Teams Coffee Weigher Relationship Specialty Start Date End Date Franklin Squires MD PCP - General Family Practice 03/08/[address] [place] [address] documented as of this encounter
--- OUTSIDE RECORDS SUMMARY | 2022-06-20 02:21 | XMS_ITS | Encounter Summary ---
:1945 Author Organization [facility] Address [address], [place] [address] Care Team Providers Name Role Phone Franklin Squires MD Primary Care Provider Reason for Visit Reason Comments QUESTIONS, GENERAL Encounter Details Date Type Department Care Team Description 02/25/2018 [facility]phone [facility] Brady Cohen, QUESTIONS, GENERAL Center Pain Manageme nt DO [address] [place] [address] [place], [place] [phone] Social History Tobacco Use Types Packs/Day Years Used Date Smoking Tobacco: Never Smokeless Tobacco: Never Alcohol Use Standard Drinks/Week Comments No 0 (1 standard drink = 0.6 oz pure alcoho l) Sex Assigned at Date Recorded Male 08/06/2021 5:59 PM CDT documented as of this encounter Nursing Notes Paulina Kumari RN - 02/26/2018 11:22 AM CDT [place] confirmed 03/03/18 at 11:30. Patient notified and agreed to plan. Paulina Kumari RN Paulina Kumari RN - 02/26/2018 10:13 AM CDT Verbal ok given from patient to speak with spouse. Patient's states they spoke with Elias at [employer] yesterday regarding patient's stimulator not providing as good of coverage as usual. Requesting clinic visit any day in the next week except 03/04 between 10:30 and 1:30. Message sent to [employer] to requesting visit for patient. Paulina Kumari, RN Marilu Osuna - 02/25/2018 2:20 PM CDT Pt's spouse requesting to speak with nurse states pt's stimulator needs to be reprogrammed please advise. Thanks Marilu Osuna documented in this encounter Plan of Treatment Not on filedocumented as of this encounter Visit Diagnoses Not on filedocumented in this encounter Care Teams Brake Linings Coater Relationship Specialty Start Date End Date Franklin Squires MD PCP - General Family Practice 03/08/[address] [place] [address] [place] [address] documented as of this encounter
--- OUTSIDE RECORDS SUMMARY | 2022-06-20 02:21 | XMS_ITS | Encounter Summary ---
:1945 Author Organization [employer] Address [address] [place] [address] Care Team Providers Name Role Phone Franklin Squires MD Primary Care Provider Reason for Visit Reason Comments Other Encounter Details Date Type Department Care Team Description 05/24/2016 Telephone Careline Unassigned, Provider Other [address] [place], [place] [address] [place] [address] Social History Tobacco Use Types Packs/Day Years Used Date Smoking Tobacco: Never Smokeless Tobacco: Never Alcohol Use Standard Drinks/Week Comments No 0 (1 standard drink = 0.6 oz pure alcoho l) Sex Assigned at Date Recorded Male 08/06/2021 5:59 PM CDT documented as of this encounter Nursing Notes Mariya Castrejon, RN - 05/24/2016 7:56 PM CDT 7:56 PM Verified and full name. yes Situation/Symptom: Pt calls to ask if he can apply ice to his back Background related to current situation/symptom: had a spinal cord stimulator applied today Pertinent Medical history: as above Medications: Reviewed Pertinent medications with the patient/caller not verified Pt calls to ask if he can apply an ice pack to his back Had a spinal cord stimulator applied today and his back hurts Has used ice on his back in the past when his back hurts Advised that there should not be any reason that he could not apply ice to the area as long as he only puts this on for 20 minutes at a time and makes sure that there is a towel/washcloth between the ice pack and his skin as we do not want to freeze the skin. Pt is not to go to sleep with the ice packapplied. Pt verbalizes understanding. Mariya Castrejon, RN Stacie Ruiz - 05/24/2016 7:47 PM CDT Which care system or clinic is the patient normally seen at? [facility]. Situation: Pt had a spinal cord implant today - can he put ice on it? Plan:A nurse will return your call. If your symptoms change for the worse, please call us back [phone]. documented in this encounter Plan of Treatment Not on filedocumented as of this encounter Visit Diagnoses Not on filedocumented in this encounter Care Teams Academic Vice President Relationship Specialty Start Date End Date Franklin Squires MD PCP - General Family Practice 03/08/[address] [place] [id number] documented as of this encounter
--- OUTSIDE RECORDS SUMMARY | 2022-06-20 02:21 | XMS_ITS | Encounter Summary ---
:1945 Author Organization [facility] Address [address] [address] Care Team Providers Name Role Phone Franklin Squires MD Primary Care Provider Reason for Visit Reason Comments APPOINTMENT REQUEST Encounter Details Date Type Department Care Team Description 07/05/2021 Telephone [employer] Garry Neff APPOINTM ENT REQUEST [facility] Mya Garcia MD Management [address] [place] [phone] (Wo rk) Social History Tobacco Use Types Packs/Day Years Used Date Smoking Tobacco: Never Smokeless Tobacco: Never Alcohol Use Standard Drinks/Week Comments No 0 (1 standard drink = 0.6 oz pure alcoho l) Sex Assigned at Date Recorded Male 08/06/2021 5:59 PM CDT documented as of this encounter Nursing Notes Tania Hernandez - 07/12/2021 1:18 PM CDT Recd ref- will enter for Dr Razia Hernandez 07/12/2021, 1:18 PM Sri Russo RN - 07/06/2021 9:38 AM CDT RN called patient and spoke with his and explained that he should re- establish with PM&R asthis sound like spasticity due to his paraplegia. The are going to call then and schedule an appt. Sri Russo RN 07/06/2021, 9:45 AM Hanna Archuleta - 07/05/2021 4:34 PM CDT Pt's spouse called stating pt has been having fluctuating high blood pressure and an increased aboutof spasmes in legs and stomach. Also brought having another CT scan done. Please advise and call spouse. Thanks! Hanna Archuleta 07/05/2021, 4:36 PM documented in this encounter Plan of Treatment Not on filedocumented as of this encounter Visit Diagnoses Not on filedocumented in this encounter Care Teams Electrogalvanizing Machine Operator Relationship Specialty Start Date End Date Franklin Squires MD PCP - General Family Practice 03/08/[address] [place] [address] documented as of this encounter
--- OUTSIDE RECORDS SUMMARY | 2022-06-20 02:21 | XMS_ITS | Encounter Summary ---
:1945 Author Organization [facility] Address [address] [address] Care Team Providers Name Role Phone Franklin Squires MD Primary Care Provider Reason for Visit Procedure/Equipment (Routine) - Incomplete Specialty Diagnoses / Procedures Referred By Contact Refer red To Contact Procedures Zelalem Cohen, DO XR Lumbar Spine AP/Lat [address] [place] [address] Referral ID Status Reason Start Date Expiration Date Visits V isits Requested Authorized [id number] Incomplete 05/29/2016 08/28/2017 1 1 Encounter Details Date Type Department Care Team Description 05/29/2016 Imaging Health Special[address] [facility] Radiology 401 [facility] [place] [address] Social History Tobacco Use Types Packs/Day Years Used Date Smoking Tobacco: Never Smokeless Tobacco: Never Alcohol Use Standard Drinks/Week Comments No 0 (1 standard drink = 0.6 oz pure alcoho l) Sex Assigned at Date Recorded Male 08/06/2021 5:59 PM CDT documented as of this encounter Plan of Treatment Not on filedocumented as of this encounter Procedures Procedure Name Priority Date/Time Associated Diagnosis Comme nts XR LUMBAR SPINE Routine 05/29/2016 1:25 PM Result s for this AP/LAT UPRIGHT CDT procedure are in the results section. documented in this encounter Results XR Lumbar Spine AP/Lat Upright (05/29/2016 1:25 PM CDT) Anatomical Region Laterality Modality Spine, L-Spine Computed Radiography Specimen (Source) Anatomical Collection Method Collection Time Re ceived Time Location / / Volume Laterality 05/29/2016 1:25 PM CDT Narrative 05/29/2016 9:20 PM CDT XR LUMBAR SPINE AP/LAT UPRIGHT 05/29/2016 1:25 PM INDICATION: Follow up spinal cord stimul ator device lead placement. COMPARISON: None. FINDINGS: There is a stimulator device p rojected over the lateral posterior paraspinal region at the level of L2. T he stimulator leads appear localized to the posterior paraspinal ti ssues extending to the right and left of midline. There are 5 lumbar type vertebral bodies with straightened lumbar lordosis. Narrowed lower lumbar discs with hypertrophic spurring. Fairly advanced facet degeneration in th e lower lumbar facets. Minimal left lumbar curvature. Procedure Note Harshad Browne MD - 05/29/2016Formatt ing of this note might be different from the original. XR LUMBAR SPINE AP/LAT UPRIGHT 05/29/2016 1:25 PM INDICATION: Follow up spinal cord stimul ator device lead placement. COMPARISON: None. FINDINGS: There is a stimulator device p rojected over the lateral posterior paraspinal region at the level of L2. T he stimulator leads appear localized to the posterior paraspinal ti ssues extending to the right and left of midline. There are 5 lumbar type vertebral bodies with straightened lumbar lordosis. Narrowed lower lumbar discs with hypertrophic spurring. Fairly advanced facet degeneration in th e lower lumbar facets. Minimal left lumbar curvature. Zelalem CRAWFORD GD documented in this encounter Visit Diagnoses Not on filedocumented in this encounter Care Teams Top Stitcher Relationship Specialty Start Date End Date Franklin Squires MD PCP - General Family Practice 03/08/[address] [place] [id number] documented as of this encounter
--- OUTSIDE RECORDS SUMMARY | 2022-06-20 02:21 | XMS_ITS | Encounter Summary ---
:1945 Author Organization [facility] Address [address] [place] [address] Care Team Providers Name Role Phone Franklin Squires MD Primary Care Provider Reason for Visit Reason Onset Date Comments Video Visit CANCEL APPOINTMENT 10/18/2021 Patient Cancelled Encounter Details Date Type Department Care Team Description 10/17/2021 Telemedicine [facility] May Randle Encounter s for [facility] MD Bryn administrative Physical Medicine [address] purposes (Primary Dx) [address] [place] [address] [phone] Social History Tobacco Use Types Packs/Day Years Used Date Smoking Tobacco: Never Smokeless Tobacco: Never Alcohol Use Standard Drinks/Week Comments No 0 (1 standard drink = 0.6 oz pure alcoho l) Sex Assigned at Date Recorded Male 08/06/2021 5:59 PM CDT documented as of this encounter Progress Notes May Randle MD - 10/17/2021 1:15 PM CST The patient cancelled this appointment. REPAIRER documented in this encounter Plan of Treatment Not on filedocumented as of this encounter Visit Diagnoses Diagnosis Encounters for administrative purposes - Primary Encounters for unspecified administrativ e purpose documented in this encounter Care Teams Conventions Reservationist Relationship Specialty Start Date End Date Franklin Squires MD PCP - General Family Practice 03/08/[address] [place] [address] [place] [id number] documented as of this encounter
--- OUTSIDE RECORDS SUMMARY | 2022-06-20 02:21 | XMS_ITS | Encounter Summary ---
:1945 Author Organization [facility] Address [address] [place] [address] Support Name Relationship Address Phone WADE DEGROOT Unavailable [phone] [place] [address] WADE DEGROOT [address] [place] [address] Insurance Providers: All historical and current Section [...] MEDICARE MEDICARE PART Jul 12, PART B [id number] VOEGELE,F P ATIENT (WNR) (M) B 2003 [id number] [phone] RED MEDICARE MEDICARE PART Oct 11, PART A [id number] 800 VOEGELE,F P ATIENT (WNR) (M) A 2001 [id number] [phone] RED Selected Encounter This section includes the information on record at [place] for the Encounter. Date/Time Encounter Type Encounter Description Reason Provider Source Jun 15, 2022 02:44 Outpatient Encounter SPINAL CORD INJURY PM IHE Encounter Template Text not used by [place] Plan of Treatment: Future Appointments (+ 6 [...] 20 appointments. The data comes from all [place] treatment facilities. Appointment Date/Time Appointment Type Appointment Facili ty Name Jun 26, 2022 11:00 AM AMBULATORY - NONE [facility] Jun 27, 2022 02:00 PM AMBULATORY - REHAB MEDICINE [facility] Active, Pending, and Scheduled Orders This section includes a listing of several types of active, pending, and scheduled orders, including clinic medications orders, diagnostic test orders, procedure orders and consult orders; where the start date of the order is 45 days before the date of the Encounter or 45 days after the date of the Encounter. The data comes from all [place] treatment facilities. Test Date/Time Test Type Test Details Facility Name Jun 04, 2022 03:35 PM Consult Order [facility] CARE Cons Top Case Assembler's Choice Jun 08, 2022 03:40 PM Consult Order SCI/D OUTPT Cons Consultan t's [facility] Choice Lab Results: +/- 30 days of the encounter This section includes the Chemistry and Hematology Lab Results on record with [place] for the patient. Radiology Reports and Pathology Reports are provided separately, in subsequent sections.Lab Results This section contains the Chemistry/Hematology Results that were resulted 30 days before or 30 daysafter the date of the Encounter. Date/Time Source Result Type Result - Unit Interpretation Reference Range Comment May 28, 2022 03:31 [facility] TREVINO [facility] COMPREHENSIVE METABOLIC Spec imen Type: PLASMA PM PANEL+MG No comment enter ed. Ordering Provid er: SHANTAL HANSON Report Released Date/Time: May 28, 2022 03:06 PM Reporting Lab: [facility] [address] Performing Lab: [facility] [address] CREATININE 0.7 0.7-1.2 UREA NITROGEN 13 8-26 [...] 2022 03:06 PM Reporting Lab: [facility] [address] [facility] [address] Performing Lab: [facility] [address] [facility] [address] WBC 6.27 4.0-11.0 RBC 4.43 L 4.6-6.2 [...] 2022 03:06 PM Reporting Lab: [facility] [address] [facility] [address] Performing Lab: [facility] [address] [facility] [address] HEMOGLOBIN A1C 5.8 4.0-6.0 May 28, 2022 03:31 [facility] LIPID PANEL,NON-FASTING Spec imen Type: PLASMA PM No comment enter ed. Ordering Provid er: SHANTAL HANSON Report Released Date/Time: May 28, 2022 03:06 PM Reporting Lab: [facility] [address] [facility] [address] Performing Lab: [facility] [address] [facility] [address] CHOLESTEROL 116 <199 .HDL 39 L >40 LDL CALCULATION 64 <99 VLDL CALCULATION 13 <29 NON HDL CHOLESTEROL 77 <129 TRIG(NON FASTING) 63 <149 May 28, 2022 03:31 PM [facility] TREVINO CBTATI ANTI-HEP C(EIA) Specimen Type: SERUM No comment enter ed. Ordering Provid er: SHANTAL HANSON Report Released Date/Time: May 28, 2022 03:06 PM Reporting Lab: [facility] [address] [facility] [address] Performing Lab: [facility] [address] [facility] [address] ANTI-HEP C(EIA) NEGATIVE NEGATIVE May 28, 2022 03:31 PM [facility] URIEL CB HIV AG/AB SCREEN Specimen Type: SERUM No comment enter ed. Ordering Provid er: SHANTAL HANSON Report Released Date/Time: May 28, 2022 03:06 PM Reporting Lab: [facility] [address] [facility] [address] Performing Lab: [facility] [address] [facility] [address] HIV AG/AB SCREEN NEGATIVE NEGATIVE May 28, 2022 03:31 [facility]A [facility] TSH W/REFLEX TO FREE Specime n Type: PLASMA PM T4 No comment enter ed. Ordering Provid er: SHANTAL HANSON Report Released Date/Time: May 28, 2022 03:06 PM Reporting Lab: [facility] [address] [facility] [address] Performing Lab: [facility] [address] [place] [facility] [address] TSH 2.42 0.35-4.94 Encounter Notes: All associated encounter notes This section contains the clinical notes associated to the Encounter. Date/Time Encounter Note(s) Provider Source Jun 15, 2022 02:44 PM REPORT OF CONTACT: YOHANNES PETE [facility] LOCAL TITLE: PATIENT CONTACT NOTE STANDARD TITLE: REPORT OF CONTACT DATE OF NOTE: JUN 15, 2022@14:44 ENTRY DATE: JUN 15, 2022@14:44:31 AUTHOR: YOHANNES PETE EXP COSIGNER: URGENCY: STATUS: COMPLETED Patient contact Name of Winston: [id number] Name/Relationship of Contact if other than Veter an: Date & Time of Contact: Jun@14:45 Type of Contact: Reason for Contact: Sulky Driver spoke with to offer new patient a ppointment. Winston requested call back to have schedule the appointment. Sulky Driver read social work note dated June 11, 2022 that kobe guido wanted help with resources to obtain records to try and increase service connectednes s. Sulky Driver informed of [employer] ([employer])advocate being available to assist with this type of activity. Winston agreeable to display card writer jeff Acosta, PVA officer, with contact inform ation but did request his Wade be contacted. Denied further needs or questions at this time. Sulky Driver provided Mr. Kovacs on with the above phone number and names of and . Mr. Acosta may also be reached at [phone]. /el/ YOHANNES PETE DNP, RN SCI/D OUTPATIENT NURSE SHERIFF DETECTIVE Signed: 06/15/2022 14:54 Receipt Acknowledged By: * AWAITING SIGNATURE * ZULEIMA BETANCOURT
--- OUTSIDE RECORDS SUMMARY | 2022-06-20 02:21 | XMS_ITS | Encounter Summary ---
:1945 [address] [facility] Address [address], [place] [address] Care Team Providers Name Role Phone Franklin Squires MD Primary Care Provider Reason for Visit Procedure/Equipment (Routine) - Incomplete Specialty Diagnoses / Procedures Referred By Contact Refer red To Contact Diagnoses Ependymoma (HRC) Garry Neff MD Procedures CT Thoracic Spine WO IV Cont [address] [place] [address] Referral ID Status Reason Start Date Expiration Date Visits V isits Requested Authorized [id number] Incomplete 08/15/2021 11/14/2022 1 1 Encounter Details Date Type Department Care Team Description 01/18/[address] [facility] [address] Garry Neff Ependymoma (HRC) [address] [place] [address] [address] [facility] [phone] [place] [id number] Social History Tobacco Use Types Packs/Day Years [...] Name Priority Date/Time Associated Diagnosis Comme nts CT THORACIC SPINE Routine 01/18/2022 12:26 PM Ependymoma (HRC) Results for this WO IV CONT HEALTH CARE CONSULTANT procedure are i n the results section. documented in this encounter Results CT Thoracic Spine WO IV Cont (01/18/2022 12:26 PM HEALTH CARE CONSULTANT) Anatomical Region Laterality Modality Spine, T-Spine, Skeletal Computed Tomogr aphy Specimen (Source) Anatomical Collection Method Collection Time Re ceived Time Location / / Volume Laterality 01/18/2022 12:26 PM HEALTH CARE CONSULTANT Narrative 01/18/2022 4:02 PM HEALTH CARE CONSULTANT EXAM: CT THORACIC SPINE WO IV CONT LOCATION: [facility] DATE/TIME: 01/18/2022 12:26 PM INDICATION: Spinal ependymoma COMPARISON: MRI 01/06/2016. TECHNIQUE: Routine CT Thoracic Spine wit hout IV contrast. Multiplanar reformats. Dose reduction techniques were used. FINDINGS: Postoperative change: There are T3-T6 an d partial T2 laminectomies reportedly for ependymoma resection. A lobulated centrally hypodense presumed fluid collection persists in the laminectomy beds between the T2 and T5-6 levels, also demonstrat ed on 01/06/2016. Alignment: Unremarkable. Bones: Vertebral body heights are unrema rkable. There is no evidence of acute displaced fractures. Postoperative changes as above. No destructive bony lesions are apparent. Mild multilevel facet arthrop athy. Multilevel right anterolateral flakita tebral body endplate osteophytosis. Discs: No large posterior disc abnormali ties. Spinal Canal: Near-circumferential calci fication along the dura at the T3 level (image 32 of series 3). There is also scattered dural calcification extending from the T12-L1 level into the lumbar spine potentially beyond the [id number]. No evidence of hematoma or high-grade spinal canal stenosis. There is low-attenuation along the ventral aspect of the spinal canal extending from the T1 level to at least the T10 level. As before, this co uld represent a CSF collection or dorsal tethering of the cord. Neural foramina: No compressive stenosis . Paraspinal soft tissues: Postoperative c hanges as above. Paraspinal muscle atrophy. Implanted stimulator device on the left at the approximate L2 level, incompletely visualized. Thoracoabdominal cavity: The lungs are g rossly well aerated. There are coronary artery calcifications. There is a small hiatal hernia. No definite acute abnormality demonstrated. IMPRESSION: 1. ??T3-T6 and partial T2 laminectomies, reportedly for remote ependymoma resection. Lobulated centrally hypodense presumed fluid collection is demonstrated in the laminectomy bed between the T2 and T5-6 levels, also present on 01/06/2016. 2. ??Low-attenuation along the ventral a spect of the spinal canal extending from the T1 level to at least the T10 level. Allowing for differences in technique, this finding is similar to prior MRI exami nations. As before, it may represent chr onic ventral CSF-isodense fluid collection or could instead reflect adherence/tethering of the spinal cord to the dorsal spinal canal. 3. ??Areas of prominent dural calcificat ion at the T3 level and in the visualized lumbar spine. 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 4. ??No evidence of acute fracture or ma lalignment. 5. ??Additional findings as above. Procedure Note Marquis Hughes MD - 01/18/2022Formatti ng of this note might be different from the original. EXAM: CT THORACIC SPINE WO IV CONT LOCATION: [facility] DATE/TIME: 01/18/2022 12:26 PM INDICATION: Spinal ependymoma COMPARISON: MRI 01/06/2016. TECHNIQUE: Routine CT Thoracic Spine wit hout IV contrast. Multiplanar reformats. Dose reduction techniques were used. FINDINGS: Postoperative change: There are T3-T6 an d partial T2 laminectomies reportedly for ependymoma resection. A lobulated centrally hypodense presumed fluid collection persists in the laminectomy beds between the T2 and T5-6 levels, also demonstrated on . Alignment: Unremarkable. Bones: Vertebral body heights are unrema rkable. There is no evidence of acute displaced fractures. Postoperative changes as above. No destructive bony lesions are apparent. Mild multilevel facet arthropathy. Multilevel right anterolateral vertebral body endpl ate osteophytosis. Discs: No large posterior disc abnormali ties. Spinal Canal: Near-circumferential calci fication along the dura at the T3 level (image 32 of series 3). There is also scattered dural calcification extending from the T12-L1 level into the lumbar spine potentially beyond the [id number]. No evidence of hemato ma or high-grade spinal canal stenosis. There is low-attenuation along the ventral aspect of the spinal canal extending from the T1 level to at least the T10 level. As before, this could represent a CSF collection or dorsal tethering of the cord. Neural foramina: No compressive stenosis . Paraspinal soft tissues: Postoperative c hanges as above. Paraspinal muscle atrophy. Implanted stimulator device on the left at the approximate L2 level, incompletely visualized. Thoracoabdominal cavity: The lungs are g rossly well aerated. There are coronary artery calcifications. There is a small hiatal hernia. No definite acute abnormality demonstrated. IMPRESSION: 1. T3-T6 and partial T2 laminectomies, r eportedly for remote ependymoma resection. Lobulated centrally hypodense presumed fluid collection is demonstrated in the laminectomy bed between the T2 and T5-6 levels, also present on 01/06/2016. 2. Low-attenuation along the ventral asp ect of the spinal canal extending from the T1 level to at least the T10 level. Allowing for differences in technique, this finding is similar to prior MRI examinations. As before, it may represent chronic ventral CSF-iso dense fluid collection or could instead reflect adherence/tethering of the spinal cord to the dorsal spinal canal. 3. Areas of prominent dural calcificatio n at the T3 level and in the visualized lumbar spine. 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 4. No evidence of acute fracture or criss lignment. 5. Additional findings as above. Garry Neff MD RAD CT documented in this encounter Visit Diagnoses Diagnosis 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, unspecified site documented in this encounter Care Teams Make Up Arranger Relationship Specialty Start Date End Date Franklin Squires MD PCP - General Family Practice 03/08/[address] [place] [id number] documented as of this encounter
--- OUTSIDE RECORDS SUMMARY | 2022-06-20 02:21 | XMS_ITS | Encounter Summary ---
:1945 Author Organization [facility] Address [address] [address] Care Team Providers Name Role Phone Franklin Squires MD Primary Care Provider Reason for Visit Reason Comments Revisit SCS with [place] Encounter Details Date Type Department Care Team Description 03/03/2018 Nursing Visit [facility] Neuroscience Spinal cord stimulator Center Pain Manageme nt status (Primary Dx) [address] [place] [address] Social History Tobacco Use Types Packs/Day Years Used Date Smoking Tobacco: Never Smokeless Tobacco: Never Alcohol Use Standard Drinks/Week Comments No 0 (1 standard drink = 0.6 oz pure alcoho l) Sex Assigned at Date Recorded Male 08/06/2021 5:59 PM CDT documented as of this encounter Progress Notes Beth Jacome, RN - 03/03/2018 11:30 AM CDT Pt and met with [place] Rep Alvarado Hernandez. Happy with adjustments that were made. They are aware of how to reach Alvarado if needed. No questions or concerns for us at this time. Pt and left clinic at this time. Beth Jacome RN 03/03/2018, 11:52 AM documented in this encounter Plan of Treatment Not on filedocumented as of this encounter Visit Diagnoses Diagnosis Spinal cord stimulator status - Primary Other postprocedural status documented in this encounter Care Teams Tire Recapping Machine Operator Relationship Specialty Start Date End Date Franklin Squires MD PCP - General Family Practice 03/08/16 [address] [facility] [place] [id number] documented as of this encounter
--- OUTSIDE RECORDS SUMMARY | 2022-06-20 02:21 | XMS_ITS | Encounter Summary ---
:1945 Author [facility] Address [address], [place] [address] Care Team Providers Name Role Phone Franklin Squires MD Primary Care Provider Reason for Referral Procedure/Equipment (Routine) - Incomplete Specialty Diagnoses / Procedures Referred By Contact Refer red To Contact Procedures Zelalem Cohen, DO XR Lumbar Spine AP/Lat [address] [place] [address] Referral ID Status Reason Start Date Expiration Date Visits V isits Requested Authorized [id number] Incomplete 05/29/2016 08/28/2017 1 1 Reason for Visit Reason Comments Revisit Encounter Details Date Type Department Care Team Description 05/29/2016 Office Visit [facility] [address] al cord stimulator Interventional Pain status ( Primary Dx) Management [address] [place] [address] Social History Tobacco Use Types Packs/Day Years Used Date Smoking Tobacco: Never Smokeless Tobacco: Never Alcohol Use Standard Drinks/Week Comments No 0 (1 standard drink = 0.6 oz pure alcoho l) Sex Assigned at Date Recorded Male 08/06/2021 5:59 PM CDT documented as of this encounter Progress Notes Mireya Gillette RN - 05/29/2016 12:29 PM CDT Patient comes to clinic post SCS implant 05-24-[address] Cohen. Patient states he's unable to give % improvement or pain level at this time or if he's noticed any difference, I just don't know. Geetha Brasher with BS present with patient making adjustments for coverage to low back. Patient continues abx and pain medications. Patient removed dressing x3/days ago d/t not getting coverage d/t dressing was too thick, pt replaced with dressing at home. Dr. Cohen removed old dressing and assessed area and patient status. Patient denies: fevers, chills, sweats. Radiologic Technician cleaned both incision areas with chloraprep, steristrips intact, no drainage, erythremia, swelling, financial underwriter applied new dressing 4x4 gauge and medipore tape to mid low back and left side low back. Patient tolerated well. Dr. Cohen ordered xray A/P lateral. Patient is to f/u in clinic 06-04-16, this is scheduled. Patient informed to continue with instructions: 1. No bathing or showering 2. Do not remove dressing 3. Do not get dressing wet 4. Pain medications as prescribed 5. Oral antibiotics prescribed Patient and patient verbalized understanding. Mireya Gillette RN documented in this encounter Plan of Treatment Not on filedocumented as of this encounter Results XR Lumbar Spine AP/Lat [...] GD documented in this encounter Visit Diagnoses Diagnosis Spinal cord stimulator status - Primary Other postprocedural status documented in this encounter Care Teams Sole Dyer Relationship Specialty Start Date End Date Franklin Squires MD PCP - General Family Practice 03/08/[address] [place] [id number] documented as of this encounter
--- OUTSIDE RECORDS SUMMARY | 2022-06-20 02:21 | XMS_ITS | Encounter Summary ---
:1945 Author Organization [facility] Address [address] [place] [address] Care Team Providers Name Role Phone Franklin Squires MD Primary Care Provider Reason for Visit Reason Comments Consult, New Patient Encounter Details Date Type Department Care Team Description 01/18/2022 Office Visit Garry Bejarano Ependymom a ([facility]) Neuroscience Center MD Jose (Primary Dx) Neurosurgery/Ortho [address] Spine [place], [place] [address] [address] [place] [address] [phone] Social History Tobacco Use Types Packs/Day Years Used Date Smoking Tobacco: Never Smokeless Tobacco: Never Alcohol Use Standard Drinks/Week Comments No 0 (1 standard drink = 0.6 oz pure alcoho l) Sex Assigned at Date Recorded Male 08/06/2021 5:59 PM CDT documented as of this encounter Last Filed Vital Signs Vital Sign Reading Time Taken Comments Blood Pressure 120/63 01/18/2022 12:59 PM FELTMAKER AND WEIGHER Pulse 87 01/18/2022 12:59 PM [employer]ELTMAKER [employer] WEIGHER Temperature 36.3 ??C (97.4 ??F) 01/18/2022 12:59 PM FELTMAKER AND WEIGHER Respiratory Rate - - Oxygen Saturation - - Inhaled Oxygen Concentration - - Weight - - Height - - Body Mass Index - - documented in this encounter Patient Instructions Patient InstructionsBeth Lockhart RN - 01/18/2022 1:00 PM CST Neurosurgery Center Patient Instructions Follow up: with a phone visit with Dr. Neff to review imaging. Will call you to set up after Katerina edmondson with Dr. Neff. Please arrive 20 minutes early to have xrays done prior to your appointment; if ordered from your last appointment. If tests were ordered, they will be reviewed at your next office visit. Please allow 10-14 days for forms to be completed and 2-3 business days for medication refills to beaddressed. If you have a change in your insurance plans, please notify the clinic so we can update our records.If we have incorrect insurance information, it can cause delays in clinic appointments and surgeries. Because we are a Level 1 Trauma Center and employ exceptional surgical staff, occasionally our surgeons must respond to hospital emergencies. This may delay the clinic or cause us to reschedule appointments. We make every attempt to limit these disruptions to you and ask for your understanding. Please call the Neurosurgery Center [phone] with any further questions or concerns. Thank you for coming to see us today. We are your partner. [employer]KER [employer] WEIGHER documented in this encounter Progress Notes Katerina Wilson PA-C - 01/18/2022 1:00 PM CST Neurosurgery Clinical Consultation Primary Care Physician: Dr. Franklin Squires MD Chief Complaint: follow up ependymoma HPI: Jeff is a pleasant 76 y.o. 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 Prior to this surgery, he had resection x2 and radiation. He had paraplegia prior to surgery withneurogenic bowel/bladder with indwelling catheter and colostomy. He remains insensate in the LEs with chronic light tingling on anterior thighs. He was last seen in January 2016. Jeff has been suffering from back pain, which was becoming more severe, worsened with bending/twisting activities. Initially left L4-L5, L5-S1 facet blocks helped, but then L5-S1 RFA worsened pain. The back pain has really made the transferring more difficult and he is not managing well at home. He has a DCS trial with Dr. 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 Today, he returns to clinic for follow up regarding ependymoma today. He reports mild low back pain in the midline, L > R, although patient is insensate at this level so difficult to determine actual area of pain. He uses his SCS daily, pain is worse in the morning typically. He has noticed increased spasms in his legs that occur multiple times a day. He is currently taking 120mg of Baclofen, this is managed by his PCP. He has tylenol for pain control and oxycodone for breakthrough pain that he uses rarely. He just reestablished care with Dr. Randle of [facility]. Previous spine surgeries: 1. 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 DCS placement with Dr. Cohen February 2016 Conservative measures tried: Injections: left L4-L5, L5-S1 facet blocks helped, but then L5-S1 RFA worsened pain Therapies: PT Medications: baclofen, oxycodone, tylenol Weakness: BLE paraplegia Bowel/bladder issues: catheter, neurogenic bowel and bladder Balance issues: NA This is not a work comp injury. Anesthesia History: None Past Medical History: Diagnosis Date ??? CAREPLAN: BACLOFEN 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 ??? Chronic anticoagulation ??? Chronic constipation ??? Depression (HRC) ??? DVT (deep venous thrombosis) (HRC) 1999 s/p IVC filter placed in 1999, also on coumadin since 1999. had non occlusive DVT of bilat LEs on dopplers 04/2010 ??? Dyslipidemia (HRC) ??? Ependymoma nos 2000 S/p resection by Dr. Glasgow at [facility] in 05/2000. However resection was incomplete due to encasement of nerves. XRT was planned but ependymoma quickly regrew & he underwent re-resection in 07/2000. 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 He again underwent resection, this time followed by radiation therapy. This controlled the tumorf ??? HTN (hypertension) (HRC) ??? Hypercholesteremia ??? Leg fracture, left nontraumatic ??? Lower paraplegia (HRC) ??? 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 Subdural hematoma, acute (HRC) 2013 Allergies: Amoxicillin, Metolazone, Morphine and related, Penicillins, Piperacillin sod- tazobactam so, Piperacillin-tazobactam in dex, Sulfasalazine, and Zaroxolyn [sulfa antibiotics] Current Outpatient Medications Medication Sig Note Dispense Refill ??? atorvastatin (LIPITOR) 40 MG tablet Take 1 Tab by mouth daily. Indications: high Choelsterol 30 Tab 11 ??? baclofen (AKA LIORESAL) 20 MG tablet Take 2 Tabs by mouth three times a day. Indications: MuscleSpasticity 90 Tab 0 ??? buPROPion (AKA WELLBUTRIN SR) 150 MG 12 hour release tablet Take 1 Tab by mouth two times a day.Indications: Major Depressive Disorder ??? cholecalciferol (AKA VITAMIN D3) 1000 UNITS tablet Take 2 Tabs by mouth daily. Indications: Vitamin D Deficiency 60 Tab 11 ??? DULoxetine (AKA CYMBALTA) 20 MG capsule Taking 4 tabs in morning and 2 tabs in afternoon ??? fludrocortisone (FLORINEF) 0.1 MG tablet Take 100 mcg by mouth. 02/21/2017: Received from: [facility] ??? furosemide (LASIX) 40 MG tablet Take 40 mg by mouth two times a day. ??? gabapentin (AKA NEURONTIN) 400 MG capsule TAKE 1 CAPSULE THREE TIMES A DAY FOR PAIN 270 Cap 0 ??? HYDROcodone-acetaminophen (NORCO) 10-325 MG tablet Take 1 Tab by mouth. 02/21/2017: [facility] from: [facility] ??? LORazepam (AKA ATIVAN) 0.5 MG tablet Take 0.5 mg by mouth every 4 hours as needed for Anxiety. ??? Multiple Vitamins-Minerals (CENTRUM SILVER OR) Take 1 Tab by mouth daily. ??? OXYCODONE HCL OR as needed. ??? polyethylene glycol (AKA MIRALAX) packet Take 1 Packet by mouth daily. Indications: [id number] Each 2 ??? Potassium Chloride (KLOR-CON OR) Takes 40 meq twice daily ??? sennosides-docusate sodium (SENOKOT S) 8.6-50 MG per tablet Take 1 Tab by mouth daily. ??? warfarin (AKA COUMADIN) 5 MG tablet Take 1 tablet (5mg) by mouth on Mondays and take 1.5 tablets(7.5mg) all other days of the week Indications: Blood Clot in a Deep Vein 10/20/2014: Patient statesthis medication was restarted in Oct No current facility-administered medications for this visit. Past Surgical History: Procedure Laterality Date ??? 37253 TOTAL KNEE ARTHROPLASTY right ??? APPENDECTOMY ??? craniotomy, evac [facility] 07/1714 Dr. Oswald Shelley ??? DEBULK SPINAL CORD THORACIC TUMOR 04/11/2010 Dr. Neff ??? FUSION APPROACH (STAND ALONE) THORACIC AND/OR LUMBAR POSTERIOR 04/05/2010 Dr. Neff ??? IVC FILTER PLACEMENT 1999 ??? LUMBAR PUNCTURE 05/26/2010 ??? REMOVAL OF BACLOFEN PUMP 05/29/2010 ??? REVISION OF BACLOFEN PUMP CATHETER 05/09/2010 ??? TURP INCL CONTRL POSTOP BLEED CMPL ??? VASECTOMY* Social and Family History: Social History Socioeconomic History ??? Marital status: Spouse name: Not on file ??? Number of children: 2 ??? Years of education: Not on file ??? Highest education level: Not on file Occupational History ??? Occupation: [employer] ??? Occupation: [employer] ??? Occupation: retired/disability Tobacco Use ??? Smoking status: Never Smoker ??? Smokeless tobacco: Never Used Vaping Use ??? Vaping Use: Never used Substance and Sexual Activity ??? Alcohol use: No ??? Drug use: No ??? Sexual activity: Yes Partners: Female Other Topics Concern ??? Not on file Social History Narrative Wheelchair bound. Able to transfer from bed to wheelchair with assist of 1 at baseline. Lives with his in [place]. Social Determinants of Health Financial Resource Strain: Not on file Food Insecurity: Not on file Transportation Needs: Not on file Physical Activity: Not on file Intimate Partner Violence: Not on file Housing Stability: Not on file Family History Problem Relation Age of Onset ??? Cancer, Colon Mother ??? Osteoporosis Mother no history of fractures ??? Cancer, Other Brother brother with throat cancer ??? Cancer, Breast Sister Review of Symptoms: As stated in HPI. Remainder of complete review of systems is negative Physical Examination: BP 120/63 (BP Location: Left Arm, BP Cuff Size: Large) Pulse 87 Temp 97.4 ??F (36.3 ??C) (Temporal Artery) ?? General: in no acute distress. Alert and oriented x 3 ?? Neurological: CN II-XII grossly intact, speech clear and fluent in character and contact. ?? Gait: Raises from chair with no difficulty. Non-antalgic, reciprocal gait. Tandem gait without deficits. ?? MSK: Upper extremities: Right Left Deltoids: C5 5/5 5/5 Biceps: C6 5/5 5/5 Triceps: C7 5/5 5/5 Wrist flexion: C7 5/5 5/5 Wrist extension: C6 5/5 5/5 Hand intrinsics: T1 5/5 5/5 Paper Goods Machine Set Up Operator strength: C8 5/5 5/5 Lower extremities: Right Left Hip flexion: L1,L2,L3 0/5 0/5 Add hips: L2L3 0/5 0/5 Knee flexion: S1 0/5 0/5 Knee extension: L3,L4 0/5 0/5 Dorsiflexion: L4,L5 0/5 0/5 Plantarflexion: S1 0/5 0/5 EHL: L5 0/5 0/5 ?? Back: Tenderness: no tenderness to palpation elicited on exam ?? Respiratory: Breathing unlabored. ?? Psych: appropriate affect and mood ?? Skin: Warm to touch to bilateral upper/lower extremities. No skin rashes or lesions noted Imaging Studies: The following imaging studies were independently reviewed in clinic. CT Thoracic Spine WO 01/18/22 IMPRESSION: 1. T3-T6 and partial T2 laminectomies, reportedly for remote ependymoma resection. Lobulated centrally hypodense presumed fluid collection is demonstrated in the laminectomy bed between the T2 and T5-6levels, also present on 01/06/2016. 2. Low-attenuation along the ventral aspect of the spinal canal extending from the T1 level to at least the T10 level. Allowing for differences in technique, this finding is similar to prior MRI examinations. As before, it may represent chronic ventral CSF-isodense fluid collection or could instead reflect adherence/tethering of the spinal cord to the dorsal spinal canal. 3. Areas of prominent dural calcification at the T3 level and in the visualized lumbar spine. 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 4. No evidence of acute fracture or malalignment. 5. Additional findings as above. Assessment: 76 year old with history of DCS placement by Dr. 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 He had paraplegia prior to surgery with neurogenic bowel/bladder with indwelling catheter and colostomy. He remains insensate in the LEs with chronic light tingling on anterior thighs. Plan: Follow up with Dr. Neff in [address] scan prior to visit. Katerina Wilson PA-C Neurosurgery Total time spent was 45 minutes of which more than 50% was used in counseling time, including discussion of prognosis and various surgical and non-surgical treatment options and associated risks and also for coordination of care. documented in this encounter Plan of Treatment Not on filedocumented as of this encounter Visit Diagnoses Diagnosis Ependymoma (HRC) - Primary Malignant neoplasm of brain, unspecified site documented in this encounter Care Teams Environmental Engineering Technician Relationship Specialty Start Date End Date Franklin Squires MD PCP - General Family Practice 03/08/[address] [place] [id number] documented as of this encounter
--- OUTSIDE RECORDS SUMMARY | 2022-06-20 02:21 | XMS_ITS | Encounter Summary ---
:1945 Author Organization [facility] Address [address] [address] Care Team Providers Name Role Phone Franklin Squires MD Primary Care Provider Reason for Referral Procedure/Equipment (Routine) - Incomplete Specialty Diagnoses / Procedures Referred By Contact Refer red To Contact Diagnoses Ependymoma (HRC) Garry Neff MD Procedures CT Thoracic Spine WO IV Cont [address] [place] [address] Referral ID Status Reason Start Date Expiration Date Visits V isits Requested Authorized [id number] Incomplete 08/15/2021 11/14/2022 1 1 Encounter Details Date Type Department Care Team Description 08/14/2021 Telephone [facility] Neuroscience Garry Merida MD Center Neurosurgery/Ortho [address] [place] [address] [place] [address] [phone] Social History Tobacco Use Types Packs/Day Years Used Date Smoking Tobacco: Never Smokeless Tobacco: Never Alcohol Use Standard Drinks/Week Comments No 0 (1 standard drink = 0.6 oz pure alcoho l) Sex Assigned at Date Recorded Male 08/06/2021 5:59 PM CDT documented as of this encounter Nursing Notes Selene Johnson RN - 09/07/2021 11:25 AM CDT Patient can be seen next available, with Dr. Neff.Selene Johnson RN 09/07/2021, 11:26 AM Karo Ghosh - 09/06/2021 10:10 AM CDT Pt is scheduled for a CT on 09/15 please advise on when pt is to be seen Karo Ghosh 09/06/2021, 10:10 AM Karo Ghosh - 09/05/2021 12:29 PM CDT Its been 3 weeks and it looks like it hasnt been scheduled, CA called pts and she will call to schedule. Will check later to see when this is scheduled for. Karo Ghosh 09/05/2021, 12:30 PM Selene Johnson RN - 08/15/2021 1:08 PM CDT Reviewed with Dr. Neff and he did give a verbal order for a thoracic CT and then to be seen in clinic. Call placed to patient and did inform of the plan. This commercial real estate underwriter did explain that radiology will call and schedule CT and we will see him after the CT iscompleted. Will route to CA to call and schedule appt. Selene Johnson RN 08/15/2021, 1:10 PM Selene Johnson RN - 08/14/2021 12:32 PM CDT Per TE from June 16, 2018: Per plan of care from TE in August of [address] thoracic myelogram and a follow up with for follow up on ??spinal ependymoma. Patient had DCS placed that is not MRI compatible. ?? It appears that patient did not completed any testing in 2018: MRI results from 2016 in which the last MRI read as follows: CONCLUSION: 1. Overall imaging findings stable from MRI 06/07/2015. 2. Again seen are postoperative changes in the upper thoracic posterior elements from prior ependymoma resection. No recurrent tumor is seen. Stable posterior adherence of the atrophic cord through the surgical bed. 3. Stable appearance of the mid and lower thoracic cord including the mildly expansile signal changes in the distal cord and conus medullaris. 4. Stable atrophic/flattened mid to lower thoracic cord from T5 through T10. This could be due to cord atrophy or possibly some type of anterior loculated CSF collection within the anterior central canal. This is all stable. No new distal enhancement. ?? Will need to get up date imaging, CT myelogram ordered pended.Selene Johnson RN 08/14/2021, 12:40 PM Beth Lockhart RN - 08/14/2021 8:37 AM CDT ----- Message from May Randle MD sent at 08/09/2021 7:28 PM CDT ----- Regarding: f/u ependymoma? Hi-I saw him today after several years-they are wondering whether he still needs imaging/followup ofthoracic ependymoma. May Randle MD documented in this encounter Plan of Treatment Not on filedocumented as of this encounter Results CT Thoracic Spine WO IV Cont (01/18/2022 12:26 PM TOPOGRAPHICAL FIELD ASSISTANT) Anatomical Region Laterality Modality Spine, T-Spine, Skeletal Computed Tomogr aphy Specimen (Source) Anatomical Collection Method Collection Time Re ceived Time Location / / Volume Laterality 01/18/2022 12:26 PM TOPOGRAPHICAL FIELD ASSISTANT Narrative 01/18/2022 4:02 PM TOPOGRAPHICAL FIELD ASSISTANT EXAM: CT THORACIC SPINE WO IV CONT [...] into the lumbar spine potentially beyond the [id number]. No evidence of hematoma or high-grade spinal [...] CT THORACIC SPINE WO IV CONT LOCATION: [facility] DATE/TIME: 01/18/2022 12:26 PM INDICATION: Spinal [...] into the lumbar spine potentially beyond the [id number]. No evidence of hemato ma or high-grade [...] Primary Malignant neoplasm of brain, unspecified site 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, unspecified site documented in this encounter Care Teams Planer Hand Relationship Specialty Start Date End Date Franklin Squires MD PCP - General Family Practice 03/08/[address] [place] [phone] documented as of this encounter
--- OUTSIDE RECORDS SUMMARY | 2022-06-20 02:21 | XMS_ITS | Encounter Summary ---
:1945 Author Organization [facility] Address [address] [place] [address] Support Name Relationship Address Phone WADE DEGROOT Unavailable [phone] [phone] WADE DEGROOT [address] [phone] Insurance Providers: All historical and current Section [...] MEDICARE MEDICARE PART Jul 12, PART B [id number] VOEGELE,F P ATIENT (WNR) (M) B 2003 [id number] [phone] RED MEDICARE MEDICARE PART Oct 11, PART A [id number] 800 [address]OE[address]LE,F P ATIENT (WNR) (M) A 2001 [id number] [phone] RED Selected Encounter This section includes the information on record at [place] for the Encounter. Date/Time Encounter Type Encounter Description Reason Provider Source Jun 11, 2022 03:25 Outpatient Encounter SPINAL CORD INJURY PM [facility] Encounter Template Text not used by [facility] Plan of Treatment: Future Appointments (+ 6 months) and Future Tests (+/- 45 days) The Plan of Treatment section includes future care activities for the patient from all [place] treatmentfacilities. This section includes future appointments and future orders which are active, pending orscheduled.Future Appointments This section includes appointments that were scheduled to occur 6 months from the date of the Encounter, up to a maximum of 20 appointments. The data comes from all [place] treatment facilities. Appointment Date/Time Appointment Type Appointment Facili ty Name Jun 12, 2022 07:00 AM AMBULATORY - NONE [facility] Jun 26, 2022 11:00 AM AMBULATORY - NONE [facility] Jun 27, 2022 02:00 PM AMBULATORY - REHAB MEDICINE [facility] Active, Pending, and Scheduled Orders This section includes a listing of several types of active, pending, and scheduled orders, including clinic medications orders, diagnostic test orders, procedure orders and consult orders; where the start date of the order is 45 days before the date of the Encounter or 45 days after the date of the Encounter. The data comes from all [place] treatment facilities. Test Date/Time Test Type Test Details Facility Name Jun 04, 2022 03:35 PM Consult Order [facility] Cons Theater Education Teacher's Choice Jun 08, 2022 03:40 PM Consult Order SCI/D OUTPT Cons Consultan t's [facility] Choice Lab Results: +/- 30 days of the encounter This section includes the Chemistry and Hematology Lab Results on record with [place] for the patient. Radiology Reports and Pathology [...] 03:06 PM Reporting Lab: [facility] [id number] [facility] [id number] CREATININE 0.7 0.7-1.2 UREA NITROGEN 13 8-26 [...] May 28, 2022 03:06 PM Reporting Lab: [facility] [address] [facility] [id number] Performing Lab: [facility] [address] [facility] [id number] WBC 6.27 4.0-11.0 RBC 4.43 L 4.6-6.2 [...] May 28, 2022 03:06 PM Reporting Lab: [facility] [address] [facility] [address] Performing Lab: [facility] [address] [facility] [id number] HEMOGLOBIN A1C 5.8 4.0-6.0 May 28, 2022 03:31 [facility] LIPID PANEL,NON-FASTING Spec imen Type: PLASMA PM No comment enter ed. Ordering Provid er: SHANTAL HANSON Report Released Date/Time: May 28, 2022 03:06 PM Reporting Lab: [facility] [address] [facility] [id number] Performing Lab: [facility] [address] [facility] [address] CHOLESTEROL 116 <199 .HDL 39 L >40 LDL CALCULATION 64 <99 VLDL CALCULATION 13 <29 NON HDL CHOLESTEROL 77 <129 TRIG(NON FASTING) 63 <149 May 28, 2022 03:31 PM [facility] ANTI-HEP C(EIA) Specimen Type: SERUM No comment enter ed. Ordering Provid er: SHANTAL HANSON Report Released Date/Time: May 28, 2022 03:06 PM Reporting Lab: [facility] [address] [facility] [id number] Performing Lab: [facility] [address] [facility] [address] ANTI-HEP C(EIA) NEGATIVE NEGATIVE May 28, 2022 03:31 PM [facility] HIV AG/AB SCREEN Specimen Type: SERUM No comment enter ed. Ordering Provid er: SHANTAL HANSON Report Released Date/Time: May 28, 2022 03:06 PM Reporting Lab: [facility] [address] [facility] [id number] Performing Lab: [facility] [id number] HIV AG/AB SCREEN NEGATIVE NEGATIVE May 28, 2022 03:31 [facility] TSH W/REFLEX TO FREE Specime n Type: PLASMA PM T4 No comment enter ed. Ordering Provid er: SHANTAL HANSON Report Released Date/Time: May 28, 2022 03:06 PM Reporting Lab: [facility] [address] [facility] [address] [facility] [address] Performing Lab: [facility] [id number] TSH 2.42 0.35-4.94
--- OUTSIDE RECORDS SUMMARY | 2022-06-20 02:21 | XMS_ITS | Encounter Summary ---
:1945 Author Organization [facility] Address [address] [address] Care Team Providers Name Role Phone Franklin Squires MD Primary Care Provider Reason for Visit Reason Comments Revisit SCS follow up Encounter Details Date Type Department Care Team Description 06/04/2016 Office Visit Specialty Center 401 Spin al cord stimulator Interventional Pain status ( Primary Dx) Management [address] [place] [address] Social History Tobacco Use Types Packs/Day Years Used Date Smoking Tobacco: Never Smokeless Tobacco: Never Alcohol Use Standard Drinks/Week Comments No 0 (1 standard drink = 0.6 oz pure alcoho l) Sex Assigned at Date Recorded Male 08/06/2021 5:59 PM CDT documented as of this encounter Patient Instructions Patient InstructionsMireya Gillette RN - 06/04/2016 3:05 PM CDT documented in this encounter Progress Notes Mireya Gillette RN - 06/04/2016 3:19 PM CDT Patient comes to clinic with spouse post 05-24-[address] Cohen. Patient reports pain level 2/10 at low back and 80% overall improvement of quality of life and is so far happy with [facility]. Alvarado with [employer] visited with patient and made some adjustments, patient reportshe is satisfied with adjustments. Patient states he has completed abx, only taking pain medication prn has not been often. Member Of Technical Staff removed old dressing, cleaned both incision areas with chloraprep, steristrips intact, no drainage, erythremia, swelling, patient denies fever, chills, sweats,b/b problems patient tolerated well. ?? Patient advised ok to shower and no soaking in bath, allow steri-strips to fall off on own, patient verbalized understanding. Mireya Gillette, RN documented in this encounter Plan of Treatment Not on filedocumented as of this encounter Visit Diagnoses Diagnosis Spinal cord stimulator status - Primary Other postprocedural status documented in this encounter Care Teams An/Syq 13 Nav/C2 Operator Relationship Specialty Start Date End Date Franklin Squires MD PCP - General Family Practice 03/08/[address] [place] [id number] documented as of this encounter
--- OUTSIDE RECORDS SUMMARY | 2022-06-20 02:21 | XMS_ITS | Encounter Summary ---
:1945 Author Organization [facility] Address [address], [place] [address] Care Team Providers Name Role Phone Franklin Squires MD Primary Care Provider Reason for Visit Reason Comments FYI Encounter Details Date Type Department Care Team Description 09/07/2016 Telephone Specialty Center 401 Garry Neff MD FYI NeuroSurgery [address] [place] [address] [place] [address] [phone] Social History Tobacco Use Types Packs/Day Years Used Date Smoking Tobacco: Never Smokeless Tobacco: Never Alcohol Use Standard Drinks/Week Comments No 0 (1 standard drink = 0.6 oz pure alcoho l) Sex Assigned at Date Recorded Male 08/06/2021 5:59 PM CDT documented as of this encounter Nursing Notes Roderick Perez - 09/12/2016 8:10 AM CDT Staff reminder message created to appear in 06/2018 for patient to get scheduled for a [address] Myelogram done prior. Selene Johnson RN - 09/11/2016 5:59 PM CDT Reviewed with and he stated that we will not have a scan this year will plan on a two yearfollow up and will do a CT myelogram in December 2017.Selene Johnson RN 09/11/2016, 5:59 PM Call placed and informed patient and EC of the above plan. She did verbalize understanding. Selene Johnson RN 09/11/2016, 6:01 PM Selene Johnson RN - 09/10/2016 4:02 PM CDT Patient is due for follow up on spinal ependymoma, unable to do MRI will need to verify with care team if CT vs CT myelogram, is needed for follow up appointment.Selene Johnson RN 09/10/2016, 4:05 PM Selene Johnson RN - 09/07/2016 3:35 PM CDT Left message to see if patient is planning on scheduling follow up for December if so this conventional mortgage underwriter will need to discuss if we will need to do a CT of the thoracic as he is unable to have the MRI completed.Selene Johnson RN 09/07/2016, 3:38 PM Selene Johnson RN - 09/07/2016 10:30 AM CDT No answer at number listed. Selene Johnson RN 09/07/2016, 10:30 AM Antonette Chávez - 09/07/2016 8:59 AM CDT Called patient to set up 1 year f/u. Patient stated he is not MRI safe due to spine stimulator that was placed in back. documented in this encounter Plan of Treatment Not on filedocumented as of this encounter Visit Diagnoses Not on filedocumented in this encounter Care Teams Cow Puncher Relationship Specialty Start Date End Date Franklin Squires MD PCP - General Family Practice 03/08/[address] [place] [address] [place] [address] documented as of this encounter
--- OUTSIDE RECORDS SUMMARY | 2022-06-20 02:21 | XMS_ITS | Encounter Summary ---
:1945 Author Organization [facility] Address [address] [address] Care Team Providers Name Role Phone Franklin Squires MD Primary Care Provider Reason for Visit Reason Comments NURSE PREP FOR PROCEDURE Encounter Details Date Type Department Care Team Description 08/28/2018 Telephone [facility] Nelly Bae NURSE PREP FOR Unit L, GROUND OPERATIONS SUPERINTENDENT [address] [place] [address] Social History Tobacco Use Types Packs/Day Years [...] on filedocumented in this encounter Care Teams Relief Man Relationship Specialty Start Date End Date Franklin Squires MD PCP - General Family Practice 03/08/[address] [place] [address] [place] [address] documented as of this encounter
--- OUTSIDE RECORDS SUMMARY | 2022-06-20 02:21 | XMS_ITS | Encounter Summary ---
:1945 Author Organization [facility] Address [address], [place] [address] Care Team Providers Name Role Phone Franklin Squires MD Primary Care Provider Encounter Details Date Type Department Care Team Description 05/24/2016 Consent for [facility] RH INFORM ED CONSENT Procedure/Treatment RECORD Social History Tobacco Use Types Packs/Day Years [...] on filedocumented in this encounter Care Teams Collar Packer Relationship Specialty Start Date End Date Franklin Squires MD PCP - General Family Practice 03/08/[address] [place], [place] [address] [address] documented as of this encounter
--- OUTSIDE RECORDS SUMMARY | 2022-06-20 02:21 | XMS_ITS | Encounter Summary ---
:1945 Author Organization [facility] Address [address] [address] Care Team Providers Name Role Phone Franklin Squires MD Primary Care Provider Reason for Referral Procedure/Equipment (Routine) - Closed Specialty Diagnoses / Procedures Referred By Contact Refer red To Contact Diagnoses Decubitus ulcer of ischium, stage 3, right (HRC) Cristy Dudley APRN, CNP [address] [place] [address] Referral ID Status Reason Start Date Expiration Date Visits Requ ested Visits Authorized [id number] Closed 02/21/2017 05/23/2018 1 1 Scheduling Instructions Your provider has recommended an appoint ment with [facility] Nutrition/Dietitian. A milled lumber grader will contact you within the next 3 business days to set up this appointment. If you have not been contac argenis, please call [phone] to schedule your appointment. This recommended servi ce/s may not be covered by your insurance coverage. To find out your specific bene fit coverage, please call the number on your insurance card. rocedure/Equipment (Routine) - Closed Specialty Diagnoses / Procedures Referred By Contact Refer red To Contact Diagnoses Decubitus ulcer of ischium, stage 3, right (HRC) Cristy Dudley, Procedures Dressing Supplies DYLAN CEDILLO [address] [place] [address] Referral ID Status Reason Start Date Expiration Date Visits Requ ested Visits Authorized [id number] Closed 02/21/2017 08/20/2017 1 1 Encounter Details Date Type Department Care Team Description 02/21/2017 Office Visit Specialty Center Cristy Dudley ecubitus ulcer of 401 [facility] MAMADOU Miranda CNP ischium, stage 3, [address] right (Primary Dx) [place] [address] [place] [phone] (Wo rk) Social History Tobacco Use Types Packs/Day Years Used Date Smoking Tobacco: Never Smokeless Tobacco: Never Alcohol Use Standard Drinks/Week Comments No 0 (1 standard drink = 0.6 oz pure alcoho l) Sex Assigned at Date Recorded Male 08/06/2021 5:59 PM CDT documented as of this encounter Patient Instructions Patient InstructionsCristy Dudley APRN, CNP - 02/21/2017 10:40 AM CDT Wound care instructions: 1. Discontinue current wound care. 2. Remove old dressing and discard. 3. Wash the wound and surrounding skin with dilute Hibiclens (30cc in 500mls NS), do not rinse off. 4. Apply Santyl ointment to the wound base. 5. Apply Lantiseptic to the periwound skin. 6. Cover with a Mepilex 6x6 Border dressing. Wound care should be done every 2 days. Cristy Dudley APRN, CNP documented in this encounter Progress Notes Cristy Dudley APRN, CNP - 02/21/2017 7:58 AM CDT Images from the original note were not included. *WOUND CLINIC NEW PATIENT PROGRESS NOTE* CC: Right IT ulcer. HPI: Patient arrives to the Wound Clinic via power scooter, accompanied by his , Heather. Referred by Britni Almaraz CNP. EPIC was reviewed. Patient has a spinal tumor that makes him wheelchair dependant. He was referred to the Wound Clinic from the [facility]. His reports that the patient skin near his right IT was pinched while using a charis lift in September 2016. He has been dealing with apressure ulcer since that skin began to breakdown. PuraPly was used on the patient's wound 2 months ago, and his reports that he had a reaction to the product. His has been changing his dressing everyday. She washes the wound with saline and soap, applies a Mepilex Ag to the wound, and then secures it with gauze and tape. Patient reports that he has pain in his back the the wheelchair he has at home is not comfortable for his back. He has been using a motorized scooter as his wheelchair. The patient would be interested in a pressure mapping and wheelchair evaluation through [facility]. They would prefer to not use Poly. ROS: Review of Systems CONSTITUTIONAL: No:, Change in appetite, Change in energy, change in weight and fevers, sweats RESPIRATORY: no shortness of breath, no cough, no sputum GASTROINTESTINAL: normal appetite, (Positive for colostomy) SKIN: no rash, no itch, no scaling, no hair changes, no nail changes, (Positive for right IT ulcer) NEUROLOGIC: (Positive for paralysis) HEMATOLOGIC/LYMPHATIC/IMMUNOLOGIC: no fevers, no night sweats, no chills, no weight loss ENDOCRINE: no diabetes ALLERGIES: Amoxicillin; Metolazone; Morphine and related; Penicillins; Piperacillin sod-tazobactam so; Piperacillin-tazobactam in dex; Sulfasalazine; and Zaroxolyn MEDICATION: no medications prescribed in Wound Clinic today. Refer to [facility] for other meds. PAST MEDICAL HISTORY: Past Medical History Diagnosis Date ??? 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 Glasgow at [place] in 05/2000. However resection was incomplete due to encasement of nerves. XRT was planned but ependymoma quickly regrew & he underwent re-resection in 07/2000. 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 He again underwent resection, this time followed by radiation therapy. This controlled the tumorf ??? DVT (deep venous thrombosis) (HRC) 1999 s/p IVC filter placed in 1999, also on coumadin since 1999. had non occlusive DVT of bilat LEs on dopplers 04/2010 ??? 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 HTN (hypertension) (HRC) ??? Dyslipidemia (HRC) ??? CAREPLAN: BACLOFEN 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 ??? Osteoporosis time piece repairer wheelchair since 2006 ??? Leg fracture, left nontraumatic ??? Hypercholesteremia (HRC) ??? Chronic constipation ??? Depression (HRC) ??? Subdural hematoma, acute (HRC) 2013 ??? Lower paraplegia (HRC) ??? Chronic anticoagulation SOCIAL HISTORY: Social History Substance Use Topics ??? Smoking status: Never Smoker ??? Smokeless tobacco: Never Used ??? Alcohol Use: No FAMILY HISTORY: Family History Problem Relation Age of Onset ??? Cancer, Colon Mother ??? Cancer, Other Brother brother with throat cancer ??? Cancer, Breast Sister ??? Osteoporosis Mother no history of fractures EXAM on 02-21-17: CONST: A & O x 3. RESP: unlabored breathing. GI / : patient has a colostomy. NEURO: Pain 0/10. Patient does not have sensation in the wound area. IMMUN: erythema, no calor. No signs of acute infection. SKIN: Right IT. See photo & full wound description in PROCEDURE note below. ASSESSMENT/PLAN: 71 year old male, paraplegic, right IT pressure injury. Nonviable tissue was sharply debrided from the wound base. Erythema around wound, no calor. was instructed to wash the wound every 2 days with dilute Hibiclens, apply Santyl ointment to the wound base, Lantiseptic to the periwound skin, and cover the wound with a Mepilex 6x6 Border dressing. Dressing prescription was sent to [facility]. Wheelchair evaluation and pressure mapping was ordered. Patient was encouraged to stay off of his wound as much as possible to allow healing. He will return to the Wound Clinic on 03-19-17. PROCEDURE NOTE WOUND LOCATION: Right IT Dimensions: 4.5 x 5.5 cm, full-thickness, on 02-21-17. Base: Nonviable. Margins: Attached, not active. Periwound skin: erythema, no calor. Drainage: Moderate. Odor: None noted. TREATMENT: Ulcer/skin cleansed with Hibiclens, then irrigated and dried. Nonviable tissue was sharply debrided from the wound base. Santyl ointment to the wound base. Lantiseptic to the periwound edges. Mepilex 6x6 Border dressing. RETURN TO CLINIC: 03-19-17. I spent 30 minutes face to face with more than 50% of the time spent counseling regarding treatment acute & half-way options, side effects as above, outside of the time spent on the procedure. Refer to HPI & Assessment/Plan above for details. Cristy Dudley APRN, DYLAN REFERRED BY: Britni Almaraz CNP PCP: Ruperto Squires MD Right IT (after debridement) 02-21-17 Right IT (before debridement) 02-21-17 documented in this encounter Plan of Treatment Scheduled Referrals Name Type Priority Associated Diagnoses Order S chedule Wheelchair Seating Referral Routine Decubitus ulcer of Ord ered: 02/21/2017 Evaluation ischium, stage 3, right documented as of this encounter Visit Diagnoses Diagnosis Decubitus ulcer of ischium, stage 3, rig ht (HRC) - Primary documented in this encounter Care Teams Hosiery Knitter Relationship Specialty Start Date End Date Franklin Squires MD PCP - General Family Practice 03/08/[address] [place] [id number] documented as of this encounter
--- OUTSIDE RECORDS SUMMARY | 2022-06-20 02:22 | XMS_ITS | Encounter Summary ---
:[address] [facility] Address [address], [place] [address] Care Team Providers Name Role Phone Franklin Squires MD Primary Care Provider Encounter Details Date Type Department Care Team Description 06/07/2015 Correspondence [facility] Rad[facility], MRI SAFETY SHEET [address] [place] [address] [place] [address] Social History Tobacco Use Types Packs/Day Years [...] on filedocumented in this encounter Care Teams Marketing Program Manager Relationship Specialty Start Date End Date Franklin Squires MD PCP - General Family Practice 03/08/[address] [place] [address] [place] [address] documented as of this encounter
--- OUTSIDE RECORDS SUMMARY | 2022-06-20 02:22 | XMS_ITS | Encounter Summary ---
:1945 Author [facility] Address [address] [address] Care Team Providers Name Role Phone Franklin Squires MD Primary Care Provider Encounter Details Date Type Department Care Team Description 03/14/2016 Telephone Specialty Center 401 Zelalem Cohen, Interventional Pain Management [address] [place] [address] [place] [address] [phone] Social History Tobacco Use Types Packs/Day Years Used Date Smoking Tobacco: Never Smokeless Tobacco: Never Alcohol Use Standard Drinks/Week Comments No 0 (1 standard drink = 0.6 oz pure alcoho l) Sex Assigned at Date Recorded Male 08/06/2021 5:59 PM CDT documented as of this encounter Nursing Notes Kathleen Carreon - 03/22/2016 3:56 PM CDT 714 @ 12 W/ - DJF Mary Waterman RN - 03/22/2016 11:38 AM CDT No PA needed per IFTA please call to schedule patient Mary Waterman RN 03/22/2016, 11:39 AM Tey Sanchez - 03/15/2016 8:49 AM CDT Waiting on PA from insurance company Mireya Gillette RN - 03/14/2016 1:09 PM CDT Jennifer (RN) for Dr. Aguilar calling back with clearance to hold coumadin x5/days prior to procedure from Dr. Squires. Jennifer states patient will need to be bridged with Lovenox and patient has been provided with a schedule for this per Jennifer. Diamond Wheel Edger: Please contact patient to schedule. Mireya Gillette RN Mary Waterman RN - 03/14/2016 11:[address] Vira Squires: Dr. Cohen will be doing a peripheral Cord Stimulator on the patient and coumadin clearance is needed because it will need to be held for 5 days prior to the procedure. Cryptologic Technician left message with RN to talk with doctor. Will give doctor the message and call back Saturday. [facility] [address] [facility] [address] Please advise. Mary Waterman RN 03/14/2016, 11:53 AM documented in this encounter Plan of Treatment Not on filedocumented as of this encounter Visit Diagnoses Not on filedocumented in this encounter Care Teams High Heel Builder Relationship Specialty Start Date End Date Franklin Squires MD PCP - General Family Practice 03/08/16 [address] [place] [address] documented as of this encounter
--- OUTSIDE RECORDS SUMMARY | 2022-06-20 02:22 | XMS_ITS | Encounter Summary ---
:1945 Author Organization [facility] Address [address] [place] [address] Care Team Providers Name Role Phone Loretta Mcmahan MD Primary Care Provider Unavailable Encounter Details Date Type Department Care Team Description 02/21/2016 Orders Only External to [facility] External, [place] [address] Social History Tobacco Use Types Packs/Day Years [...] Name Priority Date/Time Associated Diagnosis Comme nts ECG TRACING 02/21/2016 12:00 AM Results for this CDT procedure are i n the results section . documented in this encounter Results ECG TRACING (02/21/2016 12:00 AM CDT) Specimen (Source) Anatomical Location Collection Method / Collectio n Time Received Time / Laterality Volume 02/21/2016 Narrative This result has an attachment that is no t available. Provider External EKG documented in this encounter Visit Diagnoses Not on filedocumented in this encounter Care Teams Rate Analyst Relationship Specialty Start Date End Date Loretta Mcmahan MD PCP - General Family Practice 10/21/1402/10 documented as of this encounter
--- OUTSIDE RECORDS SUMMARY | 2022-06-20 02:22 | XMS_ITS | Encounter Summary ---
:1945 Author Organization [facility] Address [address] [address] Care Team Providers Name Role Phone Franklin Squires MD Primary Care Provider Reason for Referral (Routine) - Incomplete Specialty Diagnoses / Procedures Referred By Contact Refer red To Contact Procedures Zelalem Cohen DO XR C-Arm 2-2.5 Hours [address] [place] [address] Referral ID Status Reason Start Date Expiration Date Visits V isits Requested Authorized [id number] Incomplete 05/24/2016 08/23/2017 1 1 Reason for Visit Auth/Cert Specialty Diagnoses / Procedures Referred By Contact Refer red To Contact Diagnoses Neurogenic pain . Referral ID Status Reason Start Date Expiration Date Visits Requ ested Visits Authorized [id number] 1 1 Encounter Details Date Type Department Care Team Description 05/24/2016 Hospital Encounter RH Operating Room Zelalem Cohen Central pain syndrome (Prima ry Dx); [address] [facility], [place] [address] [phone] [place], [place] [id number] Social History Tobacco Use Types Packs/Day Years Used Date Smoking Tobacco: Never Smokeless Tobacco: Never Alcohol Use Standard Drinks/Week Comments No 0 (1 standard drink = 0.6 oz pure alcoho l) Sex Assigned at Date Recorded Male 08/06/2021 5:59 PM CDT documented as of this encounter Last Filed Vital Signs Vital Sign Reading Time Taken Comments Blood Pressure 153/94 05/24/2016 4:27 PM CDT Pulse 88 05/24/2016 4:27 PM CDT Temperature 36.3 ??C (97.4 ??F) 05/24/2016 4:27 PM CDT Respiratory Rate 16 05/24/2016 4:27 PM CDT Oxygen Saturation 98% 05/24/2016 4:27 PM CDT Inhaled Oxygen Concentration - - Weight 108.9 kg (240 lb) 05/23/2016 2:34 PM CDT Height 175.3 cm (5' 9) 05/23/2016 2:34 PM CDT Body Mass Index 35.44 05/23/2016 2:34 PM CDT documented in this encounter Discharge Instructions Discharge InstructionsNohemy Chauhan RN - 05/24/2016 4:16 PM CDT Discharge Instructions for: Jeff Cullen Thank you for choosing [facility] as your provider. A copy of your discharge instructions has been given to you. Please read the instructions carefully. The surgery nurse will review this information with you and answer your questions. General Information Surgeon(s): Zelalem Cohen MD Procedure(s): PLACEMENT THORACOLUMBAR SPINAL CORD STIMULATOR IMPLANT STAGE TWO Surgeon Orders/Follow Up Appointment Spinal Cord Stimulator Therapy - Permanent Instructions Follow up in clinic as scheduled Follow up with @[email or web address]@ in clinic as scheduled. Contact Information If it is after hours call the Careline at [phone]. [facility] Surgery Center: [phone] Physical Medicine and Rehab, (Fouzia Nogueira Schakel, [place]) Anesthesia Today you received Minor Sedation: Rest indoors the day of surgery, then advance to normal activity the next day. Let's talk about what to expect after receiving anesthesia. After anesthesia, reactions are slow andsome patients may become lightheaded or dizzy. The following safety precautions are recommended: ?? Don't drink alcoholic beverages. ?? Don't use any other drugs than those ordered by your physician. ?? Don't drive a car or any other vehicle. ?? Don't work with machinery or power tools. ?? Be careful walking. Be extra careful walking up and down stairs. Additional Information Let's talk about the DANGER SIGNALS to watch for after you go home. I should call my clinic if I experience any of the following: *Temperature higher than 101 degrees Fahrenheit *Redness that has spread *Persistent bleeding *Purulent drainage from injection site *Reaction to new medications *Severe pain *Swelling For Diabetic patients- The steroid used for your injection today may raise your blood sugar levels for the next 2 weeks. Check blood sugar levels more frequently and call your primary MD if there are problems. Medications Let's talk about the purpose and side effects of the medications that you will be taking home. You may take over the counter medications: acetaminophen (Tylenol) 325 mg 1-2 tablets every 4-6 hours as needed for pain; do not take Tylenol with your prescribed pain medication as they contain Tylenol in them and ibuprofen (Motrin) 200 mg every 8 hours with food as needed. You can resume your home me dications. You can resume your home medications. It is important to us that you had a great experience and great care. We want you to be completely satisfied with all aspects of your care. You might be receiving a survey in the next couple of weeks about the care you received. We would appreciate it very much if you would complete and return it. It is our goal to make [facility] your hospital of choice and want you to feel confident in recommending [facility] to your family and friends. Thank you for choosing [facility]. The nurse has reviewed the above discharge instructions with me. I understand my discharge instructions. Jeff Cullen (or Regional Business Manager) Pilot Supervisor Nurse Discharge Instructions for Permanent Implant Spinal Cord Stimulation Therapy Call [phone] with questions. Immediate Post-Operative Precautions (SIX Weeks): 1. Temporarily, there may be pain in the area of the implant as the incisions heal. If discomfort continues beyond two weeks, contact your physician. 2. If you notice excessive redness around the wound areas during this time, contact your physician to check for infection and administer proper treatment. In rare cases, adverse tissue reaction to implanted materials can occur during this period. 3. During the six weeks following the surgery you should continue to be active. It is possible the leads could move if you twist or bend past 45 degrees so do use caution with extreme movements. Long-Term Precautions (Beyond SIX Weeks): 1. Do not operate heavy machinery (i.e. automobile) with the stimulator on. You may be distracted if stimulation were to change and could cause serious injury due to inattention. 2. You may not have an MRI with the implanted stimulator. Call our office for other options. 3. The following medical therapies may cause permanent damage to the implant: lithotripsy, electrocautery. Do not use monopolar cautery, external defibrillation, radiation therapy, ultrasonic scanning. 4. If you require surgery of any type after your implantation, you must tell your surgeon to use a BIPOLAR electrocautery device instead of a MONOPOLAR electrocautery device. This is less likely to damage your stimulator. Please have your surgeon call our office for details. 5. Do not attempt to flip or finger your implant. If the implant flips over it cannot be charged. If this somehow occurs contact your physician for an evaluation. 6. In some cases the skin over the implant can become thin. Contact your physician if this occurs. 7. If you develop an infection of any kind, please consult with our office. We do not want any infection to possibly seed your implanted device. 8. If you have dental work or GI endoscope, please have your health care provider call our office regarding appropriate antibiotic prophylaxis. 9. If you require the implantation of a cardiac pacemaker or other similar device, please have your marine geologist call our office. 10. In some cases, the lead can move from the original location, and stimulation at the intended site can be lost. If this occurs, consult your physician who may be able to restore stimulation by reprogramming the implant in the clinic or repositioning the lead during another operation. 11. Implants can fail to random component failure. If the device stops working after a complete charge turn the unit off and contact your physician so the system can be evaluated. 12. Keep the remote and charging system between -4 and 140 F degrees, keep them dry, use mild soap not abrasive television newscast director for cleaning. Chronic Pain Medications (after 3-6 weeks): One of the goals of spinal cord stimulator therapy is to reduce or eliminate the need for snf pain medications. After you have healed from the surgery in a few weeks begin trying to taper your chronic pain medications. Contact your physician if you start to develop any signs of withdrawal symptoms such as: malaise, nausea, flu-like symptoms, or irritability. documented in this encounter Medications at Time of Discharge Medication Sig Dispensed Refills Start Date End Date atorvastatin (LIPITOR) 40 Take 1 Tab by mouth 30 Tab 11 1 12/22/2013 MG tabletIndications: high daily. Indications: Choelsterol high Choelsterol baclofen (AKA LIORESAL) 20 Take 2 Tabs by 90 Tab 0 10/21 MG tabletIndications: mouth three times a Muscle Spasticity day. Indications: Muscle Spasticity buPROPion (AKA WELLBUTRIN Take 1 Tab by mouth 0 1 12/22/2013 SR) 150 MG 12 hour release two times a day. tabletIndications: Major Indications: Major Depressive Disorder Depressive Disorder cholecalciferol (AKA Take 2 Tabs by 60 Tab 11 10/21/2014 VITAMIN D3) 1000 UNITS mouth daily. tabletIndications: Vitamin Indications: D Deficiency Vitamin D Deficiency DULoxetine (AKA CYMBALTA) Taking 4 tabs in 0 20 MG capsule morning and 2 tabs in afternoon furosemide (LASIX) 40 MG Take 40 mg by mouth 0 tablet two times a day. gabapentin (AKA NEURONTIN) TAKE 1 CAPSULE 270 Cap 0 09/02 400 MG capsule THREE TIMES A DAY FOR PAIN LORazepam (AKA ATIVAN) 0.5 Take 0.5 mg by 0 MG tablet mouth every 4 hours as needed for Anxiety. Multiple Vitamins-Minerals Take 1 Tab by mouth 0 (CENTRUM SILVER OR) daily. OXYCODONE HCL OR as needed. 0 polyethylene glycol (AKA Take 1 Packet by 10 Each 2 10/21 MIRALAX) packetIndications: mouth daily. Constipation Indications: Constipation Potassium Chloride Takes 40 meq twice 0 (KLOR-CON OR) daily sennosides-docusate sodium Take 1 Tab by mouth 0 (SENOKOT S) 8.6-50 MG per daily. tablet warfarin (AKA COUMADIN) 5 Take 1 tablet (5mg) 0 MG tabletIndications: Deep by mouth on Mondays Vein Thrombosis and take 1.5 tablets (7.5mg) all other days of the week Indications: Blood Clot in a Deep Vein Calcium Carbonate-Vitamin D Take 1 Tab by mouth 0 01/18/2022 (CALTRATE 600+D) 600-400 two times a day. MG-UNIT clindamycin (AKA CLEOCIN) Take 1 Cap by mouth 21 Cap 0 0 05/24/2016 01/18/2022 300 MG capsule three times a day. clindamycin (AKA CLEOCIN) Take 1 Cap by mouth 15 Cap 0 0 03/08/2016 01/18/2022 300 MG capsule three times a day. DIAZEpam (AKA VALIUM) 5 MG Take 1 Tab by mouth 2 Tab 0 12/30/2015 01/18/2022 tablet . 6 hours prior to MRI and 1 hour prior to MRI Docusate Sodium 100 MG Take 100 mg by 0 6 01/18/2022 mouth. furosemide (AKA LASIX) 20 Take 1 Tab by mouth 30 Tab 11 1 12/22/2013 01/18/2022 MG tablet daily as needed (Edema). Generic Medication Apply 1-2 grams to 250 g 6 6 01/18/2022 (COMPOUNDED CREAM) the lower back TID prn. glycerin adult ([facility] Insert 1 0 03/11/201601/18 GLYCERIN ADULT) 2 G Suppository suppository rectally. HYDROXYZINE HCL OR 0 2021 lidocaine (AKA LIDODERM) 5 Apply 2 Patches to 60 Patch 1 0 01/18/2015 01/18/2022 % patch skin . Apply once for up to 12 hrs within a 24 hr period. lidocaine (AKA XYLOCAINE) 5 Apply to the lower 30 g 0 01/20/2015 01/18/2022 % ointment back TID prn magnesium citrate Take 296 mL by 0 08/2022 (MAGNESIUM CITRATE) mouth once. 4 hours solution before your procedure niacin 500 MG Take 1 Tab by mouth 0 10/21/2014 tabletIndications: daily with Hypercholesterolemia breakfast. Indications: High Amount of Cholesterol in the Blood triamcinolone acetonide 0 12/08/2015 0 01/18/2022 (KENALOG) 0.1 % cream trimethoprim (AKA TRIMPEX) Take 100 mg by 0 01/18/2022 100 MG tablet mouth daily. documented as of this encounter H&P Notes Brown Escalante MD - 05/24/2016 11:50 AM CDT [facility] Interval History and Physical Note The attached H&P has been reviewed. The patient was examined. No change observed. Source Note - [facility], Provider - 05/17/2016 12:00 AM CDT documented in this encounter Procedure Notes Zelalem Cohen MD - 05/24/2016 9:39 PM CDT Name: Jeff Cullen MR#: [id number] Date of : 1945 Date of Procedure: 05/24/2016 Surgeon: Dr. Zelalem Cohen Preparation Operator: Jaziel Hughes DNP Vendor: [employer] Procedure: 1. Peripheral Field Stimulator Implant 2. Pulse Generator Implantation Pre-procedure Diagnosis: 1. Chronic low back pain 2. Central pain syndrome 3. Paraplegia Post-procedure Diagnosis: 1. Chronic low back pain 2. Central pain syndrome 3. Paraplegia 4. Implantation of peripheral field stimulator and pulse generator Anesthesia: MAC sedation Prophylactic antibiotics: Vancomycin Estimated blood loss: 10 cc Complications: None Consent: The risks and benefits were discussed with the pt including: bleeding, infection, nerve damage, spinal cord damage, cerebral spinal fluid loss/spinal leak. The pt agreed to the procedure and signed the consent form. Description: The pt was brought to OR# 9. The pt was placed in the prone position on the flouroscopic table with pillows under the abdomen to minimize lumbar lordosis. The site for the implantable pulse generator already had been marked in the pre-operative area. The pt's spine was prepped with betadine and draped in the usual sterile fashion. An anterior posterior flouroscopic view was obtained to lawrence the incision point at the L2/3level. After monitored anesthesia care was initiated, the skin and subcutaneous tissue was anesthetized with a 1:1 mixture of 1% lidocaine and 0.5% bupivicaine with epinephrine. Then using a No.10 blade scalpel, a vertical incision was made at the L2/3 level between the spinous processes. Using monopolar electrocautery and blunt dissection, a pocket was made down to the thoracolumbar fascia. Meticulous hemostasis was obtained. Then a 14-guage stiletted epidural needle was advanced in the subcutaneous tissue on the right at the L2 level directed laterally. I then directed a second needle on the right at the L4/5 level again laterally. Following this, 50 cm leads with wide space eight contacts, Model numbers, [id number] and [id number] were advanced through the needles. AP and lateral flouroscopic views were obtained. I then placed a third and fourth 14-guage stiletted epidural needle on the left side at the L4/5 levels for 2 other leads directed laterally. Following this, 50 cm leads with wide spaced eight contacts, Model numbers [id number] and [id number] were advanced through the needles. The stylette was removed. Again, AP and lateral flouroscopic views were obtained. The stylettes were removed from the spinal cord stimulator leads. AP views were obtained with no change in location of the leads. Then the epidural needles were removed and again AP views showed no change in location of the leads. I then placed click anchors onto the leads which were tighteneddown with the wrench tool. I then used the O Ethibond non-absorbable suture to secure the leads and achors to the thoracolumbar fascia. AP and lateral views again showed no change in lead positions. I then moved to making the subcutaneous pocket for the implantable pulse generator. The skin and subcutaneous tissue was anesthetized over the planned incision site with a 1:1 mixture of 1% lidocaine and 0.5% bupivicaine with epinephrine. Using a No.15 blade scalpel, a 4cm horizontal incision was madein the skin/subcutaneous tissue between the 12th rib and the iliac crest on the left side. Using monopolar electrocautery and blunt dissection, a subcutaneous pocket was made. Meticulous hemostasis wasobtained. Local anesthetic of a 1:1 mixture of 1% lidocaine and 0.5% bupivicaine with epinephrine was then used along the projected tunneling site. The tunneling device was used in the subcutaneous tissue between the midline pocket and the side pocket to successfully pass the spinal cord stimulator leads. Irrigation with normal saline and gentamycin was performed at both incision pocket sites. The leads were then secured to the implantable pulse generator with successful testing. The pulse generatorwas placed in the subcutaneous pocket with the writing faced up towards the skin. The pulse generator, Model [id number], was again tested successfully. Both pockets were then closed with 2-0 Vicryl absorbable sutures in the deeper layers. The subcutaneous tissues were then closed with 4-0 Monocryl. Skincleaned and 4 x 4 gauze and ABD placed. The pt was brought to the post-recovery area. Initial spinalcord stimulator settings activated. The pt was monitored and the vitals remained stable. The pt was discharged in stable condition with family member. Discharge instructions: 1. No bathing or showering 2. Do not remove dressing 3. Do not get dressing wet 4. Pain medications as prescribed 5. Oral antibiotics prescribed 6. Avoid overhead use of upper extremities 7. Avoid excessive bending forward/backward/rotation at the waist/trunk 8. Follow up in Pain Clinic as already scheduled for wound check in 10 days 11.Call pain department if you have increased pain, fever, chills, sweats, drainage from dressing 12.Regional Business Manager from the medical company will call you daily for follow up Dr. Jagdish Cohen Jamaica Hughes APRN, DNP - 05/24/2016 3:[address] [facility] Brief Operative Progress Note Surgery Date: 05/24/2016 Surgeon(s) and Role: * Zelalem Cohen MD - Primary PHYSICIAN DOUBLE CORNER CUTTER-JAZIEL HUGHES Assist: I was asked by Dr. Cohen to assist with surgery.I assisted in closing and the assistance that I provided reduced operative time which meant less general anesthetic for the patient and a safer procedure Pre-op Diagnosis: * Neuropathic pain [M79.2] Post-op Diagnosis: * Neuropathic pain [M79.2] Procedure(s) (LRB): PLACEMENT THORACOLUMBAR SPINAL CORD STIMULATOR IMPLANT STAGE TWO (N/A) EBL: 1 ML Specimens: * No specimens in log * Complications / Findings: See op note Jamaica Hughes APRN, DNP documented in this encounter Plan of Treatment Not on filedocumented as of this encounter Procedures Procedure Name Priority Date/Time Associated Comments Diagnosis XR C-ARM 2-2.5 HOURS Routine 05/24/2016 2:31 Resu lts for this PM CDT procedure are i n the results section. PLACEMENT Same Day 05/24/2016 12:00 Neuropathic pain THORACOLUMBAR SPINAL Surgery PM CDT CORD STIMULATOR IMPLANT STAGE TWO Case Notes PROC: PERIPHERAL STIMULATOR IMPLANT LOW BACK INR/PROTIME STAT 05/24/2016 10:56 AM CDT Resu lts for this procedure are in the results section . documented in this encounter Results XR C-Arm 2-2.5 Hours (05/24/2016 2:31 PM CDT) Anatomical Region Laterality Modality X-Ray Angiography Specimen (Source) Anatomical Location Collection Method / Collectio n Time Received Time / Laterality Volume Narrative 05/24/2016 2:32 PM CDT Fluoroscopy provided by a glass technologist. Exact fluoroscopy time is documented in end of exam information in EPIC Zelalem Cohen DO RAD GD INR/Protime (05/24/2016 10:56 AM CDT) athologist Signature Protime 13.2 12.0 - 14.5 [facility] INR 1.0 0.9 - 1.1 [facility] Specimen Anatomical Collection Method Collection Time Receive d Time (Source) Location / / Volume Laterality 05/24/2016 10:56 05/24/2016 AM CDT 11:[address] [facility] - 05/24/2016 11:39 AM C DT Performed at [facility] , [address] [place] [id number] Zelalem Cohen DO LAB_1 Performing Organization Address City/State/ZIP Code Phon e Number [address] [address] documented in this encounter Visit Diagnoses Diagnosis Central pain syndrome - Primary Back pain, chronic Backache, unspecified documented in this encounter Administered Medications Inactive Administered Medications - up to 3 most recent administrations Medication Order MAR Action Action Date Dose Rate Site bupivacaine 0.5% (PF) 0.5 % Given 05/24/2016 12:58 PM CDT 28 mL injection SOLN INTRA-OP, Starting on [place] 05/24/16 at 0713, Until [place] 05/24/16 at 1258, For 1 dose, Verify Route and Dose with Surgeon Prior to Administration gentamicin 80 mg in NaCl 0.9 % 1,000 mL Irrigation Given 05/24/2016 1:11 PM CDT Irrigation, INTRA-OP, Starting on [place] 05/24/16 at 1307, For 1 dose lactated ringer infusion Started 05/24/2016 12:12 PM CDT Intravenous, at 30 mL/hr, CONTINUOUS, Starting on [place] 05/24/16 at 1045, Pre-op Started 05/24/2016 11:03 AM CDT 30 mL/hr lidocaine-epinephrine 1-1:723569 % injec tion Given 05/24/2016 12:58 PM CDT 28 mL INTRA-OP, Starting on [place] 05/24/16 at 0713, For 1 dose, Verify Route and Dose with Surgeon Prior to Administration vancomycin (aka VANCOCIN) injection 1,000 Given 2015 11:19 AM CDT 1,000 mg mg 1,000 mg, Intravenous, ONCE (NON-SCHEDULED), Starting on [place] 05/24/16 at 1028, For 1 dose, For patient with weight 80 to 119 kg and Penicillin or Cephalosporin allergy PRE-OP ANTIBIOTIC Give Vancomycin 1500 mg total dose., Pre-op vancomycin (aka VANCOCIN) injection 500 mg Given 05/24/2016 11:19 AM CDT 500 mg 500 mg, Intravenous, ONCE (NON-SCHEDULED), Starting on [place] 05/24/16 at 1028, For 1 dose, For patient with weight 80 to 119 kg and Penicillin or Cephalosporin allergy PRE-OP ANTIBIOTIC Give Vancomycin 1500 mg total dose., Pre-op documented in this encounter Active and Recently Administered Medications Times are shown in CDT. Scheduled Medication Order 05/22/2016 05/23/2016 05/24/2016 bupivacaine 0.5% (PF) 0.5 % injection SOLN (CANCELED) 1258 (Given - Provider: Ayush Castro RN - Comment: MIXED WITH 30 ML LIDOCAINE 1% WITH EPI, TOTAL AMOUNT INJECTED = 28 ML) INTRA-OP, 1 dose, Starting [place] 05/24/16 at 0713, Until Discontinu ed gentamicin 80 mg in NaCl 0.9 % 1,000 mL Irrigation (COMPLETED) 1311 (Given - Provider: Ayush Castro, RN) Irrigation, INTRA-OP, 1 dose, Starting T 05/24/16 at 1307, Until [place] 05/24/16 at 1311 lidocaine-epinephrine 1-1:121780 % injection (CANCELED) 1258 (Given - Provider: Ayush Castro, RN - Comment: MIXED WITH 30 ML BUPIVACAINE 0.5% , TOTAL AMOUNT INJECTED = 28 ML) INTRA-OP, 1 dose, Starting [place] 05/24/16 at 0713, Until Discontinu ed vancomycin (aka VANCOCIN) injection 1,000 mg (COMPLETED) 1119 (Given - Provider: Aidee Hernandez RN - Comment: start per jaziel ivy) 1,000 mg, Intravenous, ONCE (NON-SCHEDUL ED), 1 dose, Starting [place] 05/24/16 at 1028, Until Discontinued, Pre-op vancomycin (aka VANCOCIN) injection 500 mg (COMPLETED) 1119 (Given - Provider: Aidee Hernandez RN - Comment: start per jaziel ivy) 500 mg, Intravenous, ONCE (NON-SCHEDULED ), 1 dose, Starting [place] 05/24/16 at 1028, Until Discontinued, Pre-op Continuous Medication Order 05/22/2016 05/23/2016 05/24/2016 lactated ringer infusion (CANCELED) 1103 (Started - Provider: Aidee Hernandez RN)1212 (Started - Provider: Karrie Thao APRN, HAND CIGAR MAKER)1456 (Infused - Provider: Cristine Shah APRN, HAND CIGAR MAKER) Intravenous, at 30 mL/hr, CONTINUOUS, Starting [place] 05/24/16 at 10 45, Pre-op documented in this encounter Care Teams Call Center Support Consultant Relationship Specialty Start Date End Date Franlkin Squires MD PCP - General Family Practice 03/08/[address] [place] [address] Declan LES DEUTSCH [id number] documented as of this encounter
--- OUTSIDE RECORDS SUMMARY | 2022-06-20 02:22 | XMS_ITS | Encounter Summary ---
:1945 Author Organization [facility] Address [address], [place] [address] Care Team Providers Name Role Phone Franklin Squires MD Primary Care Provider Reason for Visit Auth/Cert Specialty Diagnoses / Procedures Referred By Contact Refer red To Contact Diagnoses Neurogenic pain . Referral ID Status Reason Start Date Expiration Date Visits Requ ested Visits Authorized [id number] 1 1 Encounter Details Date Type Department Care Team Description 05/24/2016 Imaging [facility] Zelalem Cohen, DO [address] [address] [place] [address] [phone] (Wo rk) Social History Tobacco Use Types [...] Priority Date/Time Associated Diagnosis Comme nts XR C-ARM 2-2.5 Routine 05/24/2016 2:31 PM Results for this HOURS CDT procedure are i n the results section. documented in this encounter Results XR C-Arm 2-2.5 Hours (05/24/2016 2:31 PM CDT) Anatomical Region Laterality Modality X-Ray Angiography Specimen (Source) Anatomical Location Collection Method / Collectio n Time Received Time / Laterality Volume Narrative 05/24/2016 2:32 PM CDT Fluoroscopy provided by a clinical technologist. Exact fluoroscopy time is documented in end of exam information in EPIC Zelalem CRAWFORD GD documented in this encounter Visit Diagnoses Not on filedocumented in this encounter Care Teams Alum Plant Supervisor Relationship Specialty Start Date End Date Franklin Squires MD PCP - General Family Practice 03/08/[address] [place] [address] documented as of this encounter
--- OUTSIDE RECORDS SUMMARY | 2022-06-20 02:22 | XMS_ITS | Encounter Summary ---
:1945 Author Organization [facility] Address [address] [address] Care Team Providers Name Role Phone Franklin Squires MD Primary Care Provider Encounter Details Date Type Department Care Team Description 05/19/2016 Orders Only External to [facility], Pr ovider Social History Tobacco Use Types Packs/Day Years [...] Date/Time Associated Diagnosis Comme nts ECG TRACING 05/19/2016 12:00 AM Results for this CDT procedure are i n the results section . documented in this encounter Results ECG TRACING (05/19/2016 12:00 AM CDT) Specimen (Source) Anatomical Location Collection Method / Collectio n Time Received Time / Laterality Volume 05/19/2016 Narrative This result has an attachment that is no t available. Provider [facility] EKG documented in this encounter Visit Diagnoses Not on filedocumented in this encounter Care Teams Industrial Welder Relationship Specialty Start Date End Date Franklin Squires MD PCP - General Family Practice 03/08/[address] [place] [address] [place] [address] documented as of this encounter
--- OUTSIDE RECORDS SUMMARY | 2022-06-20 02:22 | XMS_ITS | Encounter Summary ---
:1945 Author Organization [facility] Address [address], [place] [address] Care Team Providers Name Role Phone Loretta Mcmahan MD Primary Care Provider Unavailable Encounter Details Date Type Department Care Team Description 06/21/2015 Orders Only External to Alfonso Carlson MD [address] [place], [place] [address] (Wo rk) Social History Tobacco Use Types [...] Name Priority Date/Time Associated Diagnosis Comme nts OUTSIDE IMAGING 06/21/2015 12:00 AM Resul ts for this CDT procedure are i n the results section. documented in this encounter Results OUTSIDE IMAGING (06/21/2015 12:00 AM CDT) Anatomical Region Laterality Modality Other Specimen (Source) Anatomical Location Collection Method / Collectio n Time Received Time / Laterality Volume 06/21/2015 Narrative This result has an attachment that is no t available. Garry Neff MD RAD_1 documented in this encounter Visit Diagnoses Not on filedocumented in this encounter Care Teams Iron Molder Helper Relationship Specialty Start Date End Date Loretta Mcmahan MD PCP - General Family Practice 10/21/14 4/2 05/26 documented as of this encounter
--- OUTSIDE RECORDS SUMMARY | 2022-06-20 02:22 | XMS_ITS | Encounter Summary ---
:1945 Author Organization [facility] Address [address] [address] Care Team Providers Name Role Phone Franklin Squires MD Primary Care Provider Encounter Details Date Type Department Care Team Description 05/21/2016 Telephone [facility] [address] Zelalem Cohen, Interventional Pain Management [address] [place] [address] [place] [address] [phone] Social History Tobacco Use Types Packs/Day Years Used Date Smoking Tobacco: Never Smokeless Tobacco: Never Alcohol Use Standard Drinks/Week Comments No 0 (1 standard drink = 0.6 oz pure alcoho l) Sex Assigned at Date Recorded Male 08/06/2021 5:59 PM CDT documented as of this encounter Nursing Notes Hernando, Mireya Allen RN - 05/23/2016 1:52 PM CDT Bret from [facility] calling, states Alvarado latif sent message to purchasing department requesting ok to use Model #[id number] for procedure 05-24-16? Bret asking Dr. Cohen has he used this before? Per Bret: she's not sure if this has been used by Dr. Cohen before and if this model is new it would have to go through [place]. [place] [id number] Letitia calling back before web content writer closed encoutner, states she spoke to Gelacio Santos in purchasing and since hope is same, it's ok to use this model. Track Car Operator sent e-mail to Alvarado Hernandez (cc'd Letitia Sherwood) for him to call Letitia from [facility] and discuss this. Mireya Gillette RN Zelalem Cohen MD - 05/22/2016 7:39 AM CDT [place] [facility] For SCS implant Dr. Benito Cohen Mireya Gillette RN - 05/21/2016 1:48 PM CDT Track Car Operator spoke to Bret, informed her 03-08-16 Trial was with BS and permanent implant would be with same. Dr. Cohen Please advise if this has changed? Mireya Gillette RN Beth Jacome RN - 05/21/2016 11:38 AM CDT Bret at [facility] is asking which brand of SCS this pt is having implanted. Can't tell from the notes. [place] ext [phone] and let her know. Beth Jacome RN 05/21/2016, 11:39 AM documented in this encounter Plan of Treatment Not on filedocumented as of this encounter Visit Diagnoses Not on filedocumented in this encounter Care Teams Photographic Hand Developer Relationship Specialty Start Date End Date Franklin Squires MD PCP - General Family Practice 03/08/[address] [place] [address] documented as of this encounter
--- OUTSIDE RECORDS SUMMARY | 2022-06-20 02:22 | XMS_ITS | Encounter Summary ---
:1945 Author Organization [facility] Address [address] [address] Care Team Providers Name Role Phone Franklin Squires MD Primary Care Provider Encounter Details Date Type Department Care Team Description 05/23/2016 Telephone Specialty Center 401 Zelalem Cohen DO Interventional Pain Management [address] [place] [address] [place] [address] [phone] Social History Tobacco Use Types Packs/Day Years Used Date Smoking Tobacco: Never Smokeless Tobacco: Never Alcohol Use Standard Drinks/Week Comments No 0 (1 standard drink = 0.6 oz pure alcoho l) Sex Assigned at Date Recorded Male 08/06/2021 5:59 PM CDT documented as of this encounter Nursing Notes Beth Jacome RN - 05/23/2016 2:07 PM CDT [facility] called, states pt is missing preop orders for tomorrow, asking Dr Cohen to complete. Beth Jacome RN 05/23/2016, 2:08 PM documented in this encounter Plan of Treatment Not on filedocumented as of this encounter Visit Diagnoses Not on filedocumented in this encounter Care Teams Technical Operations Manager Relationship Specialty Start Date End Date Franklin Squires MD PCP - General Family Practice 03/08/16 [address] [facility] [address] documented as of this encounter
--- OUTSIDE RECORDS SUMMARY | 2022-06-20 02:22 | XMS_ITS | Encounter Summary ---
:1945 Author Organization [facility] Address [address] [address] Care Team Providers Name Role Phone Franklin Squires MD Primary Care Provider Reason for Visit Auth/Cert Specialty Diagnoses / Procedures Referred By Contact Refer red To Contact Diagnoses Neuropathic pain . Referral ID Status Reason Start Date Expiration Date Visits Requ ested Visits Authorized [id number] 1 1 Encounter Details Date Type Department Care Team Description 03/08/2016 Imaging [facility] Zelalem Cohen DO [address] [place] [address] [place] [address] [phone] (Wo rk) Social History Tobacco Use Types [...] Date/Time Associated Diagnosis Comme nts XR C-ARM 30-59 Routine 03/08/2016 8:35 AM Results for this MINUTES CDT procedure are i n the results section. documented in this encounter Results XR C-ARM 30-59 MIN (03/08/2016 8:35 AM CDT) Anatomical Region Laterality Modality X-Ray Angiography Specimen (Source) Anatomical Location Collection Method / Collectio n Time Received Time / Laterality Volume Narrative 03/08/2016 8:43 AM CDT Fluoroscopy provided by a research technologist. Exact fluoroscopy time is documented in end of exam information in EPIC Zelalem CRAWFORD GD documented in this encounter Visit Diagnoses Not on filedocumented in this encounter Care Teams Customer Service Officer Relationship Specialty Start Date End Date Franklin Squires MD PCP - General Family Practice 03/08/[address] [place] [address] documented as of this encounter
--- OUTSIDE RECORDS SUMMARY | 2022-06-20 02:22 | XMS_ITS | Encounter Summary ---
:1945 Author Organization [employer] Address [address] [address] Care Team Providers Name Role Phone Franklin Squires MD Primary Care Provider Reason for Visit Auth/Cert Specialty Diagnoses / Procedures Referred By Contact Refer red To Contact Diagnoses Neuropathic pain . Referral ID Status Reason Start Date Expiration Date Visits Requ ested Visits Authorized [id number] 1 1 Encounter Details Date Type Department Care Team Description 03/08/2016 Anesthesia Event RH Operating Room Kati Santillan MD [address] [place] [address] [place] [address] Sky White MD [address] [place] [address] [place] [address] Anesthesia Record Procedure Summary Procedure Name Responsible Anesthesia Start Anesthesia Stop Anesthesiologist Time Time PERIPHERAL PLACEMENT Kati Santillan MD 03/08/16 0732 03/08 0856 OF STIMULATOR LEAD FOR TRIAL Events Date Time Event Comment 03/08/2016 0729 0732 An Start 0737 An Start Data 0745 MD/DO Present 0848 an stop data 0851 Care Handoff Note Airway patent . Vital signs stable. Condition unchanged. Repor t given according to policy and procedure. Elect ronically signed by Delisa Hill APRN, FOOTBALL COACH 0856 An Stop Care transferred . 1037 AN Close Name Total midazolam 2 mg/2 mL injection (aka VERSED) 2 mg propofol 10 mg/mL for procedural sedation (aka diPRIva n) 205.82 mg lactated ringers infusion 400 mL Agents Name O2 Blood No blood administrations on file. Lines, Drains, and Airways Type Details Placement Removal Colostomy Yes; 10/20/14 1833 by Descending/sigmoid; LLQ Ileostomy LUQ 07/28/14 1851 by 03/22/16 1253 b y Lda, Discontinue Incision/Surgical Site 03/08/16; 03/22/16; 03/08/16 0000 by 03/11 12/27 1253 by Jb, 1253 Lea Danielle, Travisue RN Peripheral IV Placement Date: 03/08/16 0557 by 03/08/16 0940 b y 03/08/16; Placement Lenore Garcia, Lea Batres, RN Time: 556; Pre-existing: No; Inserted by?: LST; Size (Gauge): 20 G; Orientation: Left; Location: Hand; Site Prep: Chlorhexidine; Insertion attempts: 1; Patient Tolerance: Tolerated well; Removal Date: 03/08/16; Removal Time: 939; Removal Reason: Per Protocol; Catheter Tip: Intact documented in this encounter Social History Tobacco Use Types Packs/Day Years Used Date Smoking Tobacco: Never Smokeless Tobacco: Never Alcohol Use Standard Drinks/Week Comments No 0 (1 standard drink = 0.6 oz pure alcoho l) Sex Assigned at Date Recorded Male 08/06/2021 5:59 PM CDT documented as of this encounter Miscellaneous Notes Anesthesia Postprocedure Evaluation - Kati Santillan MD - 03/08/2016 10:37 AM CDT [facility] Anesthesia Post-op Note Patient: Jeff Cullen Post-Op Diagnosis: Neuropathic pain Procedure Performed: Procedure(s): PERIPHERAL PLACEMENT OF STIMULATOR LEAD FOR TRIAL Anesthesia type: MAC Patient location: Phase II Post-op pain control: Satisfactory PONV: None Cardiovascular Function: Satisfactory Post-op Hydration: Satisfactory Respiratory Function: Satisfactory Airway Patency: Patent Post-op vital signs: BP 90/54 mmHg Pulse 95 Temp(Src) 97.6 ??F (36.4 ??C) (Temporal Artery) Resp 16 Ht 5' 9 (1.753 m) Wt 108.863 kg (240 lb) BMI 35.43 kg/m2 SpO2 95% Pain Score: Level of consciousness: Awake Patient participates in evaluation: Mental status recovered: Yes Complications: No apparent anesthetic complications Post-op assessment: Patient tolerated procedure well Kati Santillan MD 03/08/2016 10:37 AM Anesthesia Preprocedure Evaluation - Delisa Hill APRN, FOOTBALL COACH - 03/08/2016 7:00 AM CDT [facility] Anesthesia Pre-op Evaluation Procedure: Procedure(s): PERCUTANEOUS TRIAL STIMULATION CERVICOTHORACIC SPINAL CORD HPI: 70 y.o. old male with Neuropathic pain NPO Status: Last Fluid Intake Time: 2099 Last Fluid Intake Date: 03/07/16 Last Food Intake Date: 03/07/16 Last Food Intake Time: 2099 Allergies Allergen Reactions ??? Amoxicillin Rash ??? Penicillins Rash ??? Sulfasalazine Rash ??? Zaroxolyn [Sulfa Drugs] Rash Past Medical History Diagnosis Date ??? 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 However resection was incomplete due to encasement of nerves. XRT was planned but ependymoma quickly regrew & he underwent re-resection in 07/2000. 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 He again underwent resection, this time followed by radiation therapy. This controlled the tumorf ??? DVT (deep venous thrombosis) 1999 s/p IVC filter placed in 1999, also on coumadin since 1999. had non occlusive DVT of bilat LEs on dopplers 04/2010 ??? 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 HTN (hypertension) ??? Dyslipidemia ??? CAREPLAN: BACLOFEN 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 ??? Osteoporosis multimedia author wheelchair since 2006 ??? Leg fracture, left nontraumatic ??? Hypercholesteremia ??? Chronic constipation ??? Depression ??? Subdural hematoma, acute 2014 ??? Lower paraplegia ??? Chronic anticoagulation Patient Active Problem List Diagnosis ??? Ependymoma ??? Fever ??? Probable Bacterial Meningitis ??? DVT (deep venous thrombosis) ??? Neurogenic bladder ??? HTN (hypertension) ??? CAREPLAN: BACLOFEN ??? Hyperparathyroidism ??? Vitamin D deficiency ??? Paraplegia ??? Osteoporosis ??? Back pain, chronic ??? Urinary tract infection ??? Tinnitus of both ears ??? Thrombophlebitis of deep veins of lower extremity ??? Bilateral sensorineural hearing loss ??? Pure hypercholesterolemia ??? Peripheral edema ??? Neurogenic bowel ??? Subdural hematoma ??? Depression ??? Encounter for long-term (current) use of other medications ??? Benign neoplasm of spinal cord ??? Benign essential hypertension ??? Anxiety ??? History of anticoagulant therapy ??? Bilateral carpal tunnel syndrome ??? terminal gauger current use of anticoagulant therapy ??? Cataract ??? Carpal tunnel syndrome ??? Encounter for long-term (current) use of medications ??? Sensorineural hearing loss (SNHL) of both ears ROS: GERD: No Smoking:No ETOH: No Recent URI: No Past Surgical History Procedure Laterality Date ??? Appendectomy ??? Vasectomy* ??? Turp incl contrl postop bleed cmpl ??? 22570 total knee arthroplasty right ??? Ivc filter placement 1999 ??? Craniotomy, evac sdh 07/1714 Dr. Oswald Shelley ??? Revision of baclofen pump catheter 05/09/2010 ??? 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 Neff ??? Fusion approach (stand alone) thoracic and/or lumbar posterior 04/05/2010 Dr. Neff ??? Lumbar puncture 05/26/2010 ??? Removal of baclofen pump 05/29/2010 Personal/Family History of Previous Anesthetic Complications: No Outpatient Prescriptions Marked as Taking for the 03/08/16 encounter (Hospital Encounter) Medication Sig Dispense Refill ??? atorvastatin (LIPITOR) 40 MG [...] by mouth two times a day. ??? cholecalciferol (AKA VITAMIN D3) 1000 UNITS tablet Take 2 Tabs by mouth daily. Indications: Vitamin D Deficiency 60 Tab 11 ??? DIAZEpam (AKA VALIUM) 5 MG tablet Take 1 Tab by mouth . 6 hours prior to MRI and 1 hour prior toMRI 2 Tab 0 ??? DULoxetine (AKA CYMBALTA) 20 MG capsule Taking 4 tabs in morning and 2 tabs in afternoon ??? furosemide (LASIX) 40 MG tablet Take 40 mg by mouth two times a day. ??? gabapentin (AKA NEURONTIN) 400 MG capsule TAKE 1 CAPSULE THREE TIMES A DAY FOR PAIN 270 Cap 0 ??? Generic Medication (COMPOUNDED CREAM) Apply 1-2 grams to the lower back TID prn. 250 g 6 ??? HYDROXYZINE HCL OR ??? lidocaine (AKA LIDODERM) 5 % patch Apply 2 Patches to skin . Apply once for up to 12 hrs within a 24 hr period. 60 Patch 1 ??? lidocaine (AKA XYLOCAINE) 5 % ointment Apply to the lower back TID prn 30 g 0 ??? LORazepam (AKA ATIVAN) 0.5 MG tablet [...] Take 1 Packet by mouth daily. Indications: [id number] Each 2 ??? Potassium Chloride (KLOR-CON OR) Takes 40 meq twice daily ??? trimethoprim (AKA TRIMPEX) 100 MG tablet Take 100 mg by mouth daily. ??? warfarin (AKA COUMADIN) 5 MG tablet Take 1 tablet (5mg) by mouth on Mondays and take 1.5 tablets(7.5mg) all other days of the week Indications: Blood Clot in a Deep Vein Current Facility-Administered Medications Medication Dose Route Frequency ??? bupivacaine 0.5% (PF) 0.5 % injection SOLN Intra-Op ??? lactated ringers infusion Intravenous Continuous ??? lidocaine (aka XYLOCAINE) 1 % injection Intra-Op Labs: Lab Results Component Value Date/Time SODIUM 142 10/21/2014 05:20 AM K 4.0 10/21/2014 05:20 AM CHLORIDE 105 10/21/2014 05:20 AM CO2 26 10/21/2014 05:20 AM BUN 11 10/21/2014 05:20 AM CREATININE 0.93 10/21/2014 05:20 AM GLUCOSE 108 10/21/2014 05:20 AM Lab Results Component Value Date/Time WBC 11.1* 10/21/2014 05:20 AM HGB 11.5* 10/21/2014 05:20 AM HCT 35.0* 10/21/2014 05:20 AM PLTS 120* 10/21/2014 05:20 AM INR (no units) Date Value 10/21/2014 2.5* 05/22/2010 3.0 No results found for: HCGQUANT Urine : Blood Bank: [facility] (no units) Date Value 07/28/2014 A NEGATIVE ABSCR (no units) Date Value 07/28/2014 NEGATIVE EKG: Date of last EK04/11/10 ECG 12-LEAD ROUTINE Result Value Ref Range VENTRICULAR RATE 114 BPM ATRIAL RATE 114 BPM P-R INTERVAL 176 ms QRS DURATION 92 ms QT 326 ms QTC 449 ms P AXIS 60 degrees R AXIS -42 degrees T AXIS 26 degrees URL LINK Physical Exam: BP 108/65 mmHg Pulse 8 Temp(Src) 97.1 ??F (36.2 ??C) (Temporal Artery) Resp 16 Ht 5' 9 (1.753 m) Wt 108.863 kg (240 lb) BMI 35.43 kg/m2 SpO2 98% Mental Status: Awake, Alert, Oriented Airway: MPC2 Dentition: normal Heart:RRR Lungs:BS CTA Assessment/Plan: Updated History and Physical: H&P Reviewed and Patient examined, no change observed ASA Score: 3 Anesthesia Type: MAC Standard ASA Monitors Induction Agent: Maintenance: PONV Prophylaxis:Propofol Infusion Other Equipment Needed: Post-operative Care: Routine Analgesia Anesthetic Plan, Risks, Benefits and alternatives discussed with: Patient IV access Antibiotics per surgery Kati Santillan MD 03/08/2016 7:00 AM documented in this encounter Plan of Treatment Not on filedocumented as of this encounter Visit Diagnoses Not on filedocumented in this encounter Administered Medications Inactive Administered Medications - up to 3 most recent administrations Medication Order MAR Action Action Date Dose Rate Site midazolam (aka VERSED) injection Given 03/08/2016 7:32 AM CDT 2 mg Starting on [place] 03/08/16 at 0732, Until [place] 03/08/16 at 0856 propofol (aka diPRIvan) Rate/Dose 03/08/2016 8:25 30 mcg/kg/min 19.6 mL/hr injection Change AM CDT Intravenous, Starting on [place] 03/08/16 at 0750 Rate/Dose Change 03/08/2016 8:21 AM CDT 40 mcg/kg/min 26.14 mL/hr Started 03/08/2016 7:50 AM CDT 50 mcg/kg/min 32.67 mL/hr documented in this encounter Care Teams Food Production Manager Relationship Specialty Start Date End Date Franklin Squires MD PCP - General Family Practice 03/08/[address] [place] [address] documented as of this encounter
--- OUTSIDE RECORDS SUMMARY | 2022-06-20 02:22 | XMS_ITS | Encounter Summary ---
:1945 Author Organization [facility] Address [address] [address] Care Team Providers Name Role Phone Loretta Mcmahan MD Primary Care Provider Unavailable Reason for Referral (Routine) - Incomplete Specialty Diagnoses / Procedures Referred By Contact Refer red To Contact Diagnoses Carpal tunnel syndrome of left wrist Jodi Aguila PA-C Procedures Case Request OR - Neurosurgery: RELEASE CARPAL TUNNEL [address] [place] [address] Referral ID Status Reason Start Date Expiration Date Visits V isits Requested Authorized [id number] Incomplete 12/29/2015 1 1 RAL ASSEMBLER INSTALLER Encounter Details Date Type Department Care Team Description 12/29/2015 Prep for [facility] Jodi Aguila, Carpal tunnel 401 NeuroSurgery LYDIA syndrome of left [address] [facility] wrist (Primary Dx) [place] [address] [place], [place] [phone] [address] Social History Tobacco Use Types Packs/Day Years Used Date Smoking Tobacco: Never Smokeless Tobacco: Never Alcohol Use Standard Drinks/Week Comments No 0 (1 standard drink = 0.6 oz pure alcoho l) Sex Assigned at Date Recorded Male 08/06/2021 5:59 PM CDT documented as of this encounter Plan of Treatment Not on filedocumented as of this encounter Visit Diagnoses Diagnosis Carpal tunnel syndrome of left wrist - P rimary Carpal tunnel syndrome documented in this encounter Care Teams Launchman Relationship Specialty Start Date End Date Loretta Mcmahan MD PCP - General Family Practice 10/21/1402/10 documented as of this encounter
--- OUTSIDE RECORDS SUMMARY | 2022-06-20 02:22 | XMS_ITS | Encounter Summary ---
:1945 Author Organization [facility] [address], [place] [address] Care Team Providers Name Role Phone Franklin Squires MD Primary Care Provider Encounter Details Date Type Department Care Team Description 07/08/2015 Correspondence [facility] Trudi Raymundo, PT ADDENDUM FOR LETTER Physical Therapy [address] [facility] [address] [place] [address] [phone] Social History Tobacco Use Types Packs/Day Years [...] on filedocumented in this encounter Care Teams Rigging Slinger Relationship Specialty Start Date End Date Franklin Squires MD PCP - General Family Practice 03/08/[address] [place] [address] [facility] [place] [address] documented as of this encounter
--- OUTSIDE RECORDS SUMMARY | 2022-06-20 02:22 | XMS_ITS | Encounter Summary ---
:1945 Author Organization [employer] Address [address], [place] [address] Care Team Providers Name Role Phone Loretta Mcmahan MD Primary Care Provider Unavailable Reason for Visit Reason Comments Pre Procedure Questions Coumadin Clearance Encounter Details Date Type Department Care Team Description 11/18/2015 Telephone Special[facility] 401 Zelalem Cohen re Procedure Interventional Pain L, DO Questions (Coumadin Management [address] Clearance) [address] [place] [phone] Social History Tobacco Use Types Packs/Day Years Used Date Smoking Tobacco: Never Smokeless Tobacco: Never Alcohol Use Standard Drinks/Week Comments No 0 (1 standard drink = 0.6 oz pure alcoho l) Sex Assigned at Date Recorded Male 08/06/2021 5:59 PM CDT documented as of this encounter Nursing Notes Mary Waterman RN - 01/19/2016 10:59 AM CST Scheduled. AL SECRETARY Kathleen Carreon - 12/06/2015 3:10 PM CST Only space to schedule pt as of now is 02/08 in the afternoon. Need clearance from Archana at [address] [place] [address] tog late in OR. Per Donnie, Archana will not be back until 3:30 today (12/06). AL SECRETARY Beth Jacome RN - 11/28/2015 10:08 AM CST Procedure home care scheduler- clearance to hold coumadin received from Dr Squires, see below. Beth Jacome RN 11/28/2015, 10:08 AM Beth Fonseca RN - 11/28/2015 10:02 AM CST Received call from Avelina stating Dr Squires gave pt clearance to hold coumadin 5 days prior to injection, pt has been instructed by Dr Squires on regimen. Pt will be taking Lovenox injections while holding his coumadin.Copy of instructions received from Dr Squires, sent to [facility]. Beth Jacome RN 11/28/2015, 10:06 AM Mary Sanders RN - 11/25/2015 4:12 PM CST Photocopying Machine Operator called and talked w/[place] will forward message to Dr. Tavia Quan's RN to address CoumadinClearance. Mary Waterman RN 11/25/2015, 4:15 PM AL SECRETARY Kathleen Carreon - 11/22/2015 2:08 PM CST Received call from Dr. Tavia Quan's nurse. [facility] pt will see Dr. Squires this 11/[address] Squires will address this request at that time. Mary Sanders RN - 11/22/2015 12:07 PM CST Photocopying Machine Operator CHEOK with [employer] [employer] to have Tavia Feliciano's RN to call IVP department back regarding below message. Mary Waterman RN 11/22/2015, 12:10 PM AL SECRETARY Mary Waterman, RN - 11/18/2015 4:[address] Vira Squires: Dr. Cohen will be doing a Spinal Cord Stimulator trial on the patient and coumadin clearance because it will need to be held for 5 days prior to the procedure. Photocopying Machine Operator left message withRN to talk with doctor. Will give doctor the message and call back Saturday. [address] [address] Please advise. Mary Waterman RN 11/18/2015, 4:19 PM AL SECRETARY documented in this encounter Plan of Treatment Not on filedocumented as of this encounter Visit Diagnoses Not on filedocumented in this encounter Care Teams Field Account Manager Relationship Specialty Start Date End Date Loretta Mcmahan MD PCP - General Family Practice 10/21/1402/10 documented as of this encounter
--- OUTSIDE RECORDS SUMMARY | 2022-06-20 02:22 | XMS_ITS | Encounter Summary ---
:1945 Author Organization [email or web address] Address [address], [place] [address] Care Team Providers Name Role Phone Franklin Squires MD Primary Care Provider Encounter Details Date Type Department Care Team Description 11/23/2015 Correspondence External to External, Provid er LETTER [facility] [place] [place] [address] Social History Tobacco Use Types Packs/Day Years [...] on filedocumented in this encounter Care Teams Data Processing Clerk Relationship Specialty Start Date End Date Franklin Squires MD PCP - General Family Practice 03/08/[address] [place], [place] [address]LES Wong [address] documented as of this encounter
--- OUTSIDE RECORDS SUMMARY | 2022-06-20 02:22 | XMS_ITS | Encounter Summary ---
:1945 Author Organization [facility] Address [address], [place] [address] Care Team Providers Name Role Phone Loretta Mcmahan MD Primary Care Provider Unavailable Encounter Details Date Type Department Care Team Description 07/21/2015 Orders Only External to Alfonso Carlson MD [address], [place] [address] (Wo rk) Social History [...] Date/Time Associated Diagnosis Comme nts OUTSIDE IMAGING 07/21/2015 12:00 AM Resul ts for this CDT procedure are i n the results section. documented in this encounter Results OUTSIDE IMAGING (07/21/2015 12:00 AM CDT) Anatomical Region Laterality Modality Other Specimen (Source) Anatomical Location Collection Method / Collectio n Time Received Time / Laterality Volume 07/21/2015 Narrative This result has an attachment that is no t available. Garry Neff MD RAD_1 documented in this encounter Visit Diagnoses Not on filedocumented in this encounter Care Teams Engine Wiper Relationship Specialty Start Date End Date Loretta Mcmahan MD PCP - General Family Practice 10/21/14 4/2 05/26 documented as of this encounter
--- OUTSIDE RECORDS SUMMARY | 2022-06-20 02:22 | XMS_ITS | Encounter Summary ---
:1945 Author Organization [facility] Address [address], [place] [address] Care Team Providers Name Role Phone Franklin Squires MD Primary Care Provider Reason for Visit Auth/Cert Specialty Diagnoses / Procedures Referred By Contact Refer red To Contact Diagnoses Neurogenic pain . Referral ID Status Reason Start Date Expiration Date Visits Requ ested Visits Authorized [id number] 1 1 Encounter Details Date Type Department Care Team Description 05/24/2016 Anesthesia Event RH Operating Room Brown Escalante MD [address] [place] [address] [address] [facility] Jean Wagner APRN, CRNA [address] [place] [address] [place] [address] Anesthesia Record Procedure Summary Procedure Name Responsible Anesthesia Start Anesthesia Stop Anesthesiologist Time Time PLACEMENT Brown Escalante MD 05/24/16 1212 05/24/16 1506 THORACOLUMBAR SPINAL CORD STIMULATOR IMPLANT STAGE TWO Events Date Time Event Comment 05/24/2016 1157 1212 An Start 1215 An Start Data 1215 An Cannula 1219 Quick Note vanco started by pre-op rn 1252 An Local Anesthetic By Surgeon 1322 MD/DO Present 1500 an stop data 1506 Care Handoff Note Airway patent . Vital signs stable. Condition unchan ged. Report given according to betty icy and procedure. Electronically s igned by Cristine Shah APRN, CRN A 1506 An Stop Care transferred . 1506 Quick Note Pt c/o stiff rig ht shoulder 1610 AN Close Name Total midazolam 2 mg/2 mL injection (aka VERSED) 2 mg fentaNYL injection (aka SUBLIMAZE) 4 mL propofol 10 mg/mL for procedural sedation (aka diPRIva n) 20 mg propofol 10 mg/mL for procedural sedation (aka diPRIva n) 916.39 mg ondansetron injection (aka ZOFRAN) 4 mg lactated ringer infusion 600 mL Agents Name O2 Blood No blood administrations on file. Lines, Drains, and Airways Type Details Placement Removal Colostomy Yes; 10/20/14 1833 by Descending/sigmoid; LLQ Peripheral IV Placement Date: 05/24/16 1102 by 06/07/16 1828 b y Lda, 05/24/16; Placement Aidee Hernandez RN Discont inue Time: 110; Pre-existing: No; Inserted by?: RN; Size (Gauge): 20 G; Orientation: Left; Site Prep: Chlorhexidine; Local Anesthetic: None; Insertion attempts: 1; Blood draw with insertion?: yes; Patient Tolerance: Tolerated well; Met Standard Sterile Barrier Technique: Met Standard Sterile Barrier Technique; Removal Date: 06/07/16; Removal Time: 1827 Peripheral IV Placement Date: 05/24/16 1240 by Keesha, 06/07/16 1828 by Lda, 05/24/16; Placement Karrie Clemente APRN, CRNA Discontin ue Time: 1239; Inserted by?: BRIANNA; Size (Gauge): 22 G; Orientation: Right; Site Prep: Alcohol; Insertion attempts: 1; Blood draw with insertion?: no; Patient Tolerance: Tolerated well; Met Standard Sterile Barrier Technique: Met Standard Sterile Barrier Technique; Removal Date: 06/07/16; Removal Time: 1827 documented in this encounter Social History Tobacco Use Types Packs/Day Years Used Date Smoking Tobacco: Never Smokeless Tobacco: Never Alcohol Use Standard Drinks/Week Comments No 0 (1 standard drink = 0.6 oz pure alcoho l) Sex Assigned at Date Recorded Male 08/06/2021 5:59 PM CDT documented as of this encounter Miscellaneous Notes Anesthesia Postprocedure Evaluation - Brown Escalante MD - 05/24/2016 4:[address] [facility] Anesthesia Post-op Note Patient: Jeff Cullen Post-Op Diagnosis: Neuropathic pain Procedure Performed: Procedure(s): PLACEMENT THORACOLUMBAR SPINAL CORD STIMULATOR IMPLANT STAGE TWO Anesthesia Type: MAC Post-op vital signs: BP 150/90 mmHg Pulse 94 Temp(Src) 97.7 ??F (36.5 ??C) (Oral) Resp 18 Ht5' 9 (1.753 m) Wt 108.863 kg (240 lb) BMI 35.43 kg/m2 SpO2 100% Pain Score: Presence Of Pain: denies Preferred Pain Scale: number (Numeric Rating Pain Scale) Pain Rating (0-10): Rest: 5 Pain Rating (0-10): Activity: 5 Post-op assessment: No anesthesia complication. Patient location: Phase 2 Airway Status: Patent Cardiovascular function: Satisfactory Hydration status: Satisfactory PONV: None Level of Consciousness: Awake Fully Participates Postop Assessment: Patient tolerated procedure well. Brown Escalante MD 05/24/2016 4:09 PM Anesthesia Preprocedure Evaluation - Brown Escalante MD - 05/24/2016 11:[address] [facility] Anesthesia Pre-op Evaluation Procedure: Procedure(s): PLACEMENT THORACOLUMBAR SPINAL CORD STIMULATOR IMPLANT STAGE TWO HPI: 71 y.o. old male with Neuropathic pain NPO Status: Last Fluid Intake Time: 0800 Last Fluid Intake Date: 05/24/16 Last Food Intake Date: 05/23/16 Last Food Intake Time: 1800 Allergies Allergen Reactions ??? Amoxicillin Rash ??? Penicillins Rash ??? Sulfasalazine Rash ??? Zaroxolyn [Sulfa Drugs] Rash Past Medical History Diagnosis Date ??? 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 However resection was incomplete due [...] spasticity of lower extremities. ??? 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 Leg fracture, left nontraumatic ??? Hypercholesteremia (HRC) ??? Chronic constipation ??? Depression (HRC) ??? Subdural hematoma, acute (HRC) 2013 ??? Lower paraplegia (HRC) ??? Chronic anticoagulation Patient Active Problem List Diagnosis ??? Ependymoma (HRC) ??? Fever ??? Probable Bacterial Meningitis ??? DVT (deep venous thrombosis) (HRC) ??? Neurogenic bladder ??? HTN (hypertension) (HRC) ??? CAREPLAN: BACLOFEN ??? Hyperparathyroidism (HRC) ??? Vitamin D deficiency (HRC) ??? Paraplegia (HRC) ??? Osteoporosis (HRC) ??? Back pain, chronic ??? Tinnitus of both ears ??? Thrombophlebitis of deep veins of lower extremity (HRC) ??? Bilateral sensorineural hearing loss ??? Pure hypercholesterolemia (HRC) ??? Peripheral edema ??? Neurogenic bowel ??? Subdural hematoma (HRC) ??? Depression (HRC) ??? Encounter for long-term (current) use of other medications ??? Benign neoplasm of spinal cord (HRC) ??? Benign essential hypertension (HRC) ??? Anxiety (HRC) ??? History of anticoagulant therapy ??? Bilateral carpal tunnel syndrome ??? 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 Cataract ??? Carpal tunnel syndrome ??? Encounter for long-term (current) use of medications ??? Sensorineural hearing loss (SNHL) of both ears Past Surgical History Procedure Laterality Date ??? Appendectomy ??? Vasectomy* ??? Turp incl contrl postop bleed cmpl ??? 50877 total knee arthroplasty right ??? Ivc filter placement 1999 ??? Craniotomy, evac sdh 07/1714 Dr. Oswald Shelley ??? Revision of baclofen pump catheter 05/09/2010 ??? 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 Neff ??? Fusion approach (stand alone) thoracic and/or lumbar posterior 04/05/2010 Dr. Neff ??? Lumbar puncture 05/26/2010 ??? Removal of baclofen pump 05/29/2010 Outpatient Prescriptions Marked as Taking for the 05/24/16 encounter (Hospital Encounter) Medication Sig Dispense Refill [...] DAY FOR PAIN 270 Cap 0 ??? HYDROXYZINE HCL OR ??? lidocaine (AKA XYLOCAINE) 5 % ointment Apply to the lower back TID prn 30 g 0 ??? LORazepam (AKA ATIVAN) 0.5 MG tablet Take 0.5 mg by mouth every 4 hours as needed for Anxiety. ??? magnesium citrate (MAGNESIUM CITRATE) solution Take 296 mL by mouth once. 4 hours before your procedure ??? Multiple Vitamins-Minerals (CENTRUM SILVER OR) Take 1 Tab by mouth daily. ??? niacin 500 MG tablet Take 1 Tab by mouth daily with breakfast. Indications: High Amount of Cholesterol in the Blood ??? OXYCODONE HCL OR ??? Potassium Chloride (KLOR-CON OR) Takes 40 meq twice daily ??? sennosides-docusate sodium (SENNA-DOCUSATE) 8.6-50 MG tablet Take 1 Tab by mouth daily. ??? trimethoprim (AKA TRIMPEX) 100 MG tablet Take 100 mg by mouth daily. Current Facility-Administered Medications Medication Dose Route Frequency ??? bupivacaine 0.5% (PF) 0.5 % injection SOLN Intra-Op ??? ceFAZolin (aka ANCEF) 1 g in NaCl 0.9 % 1,000 mL irrgation Intra-Op ??? lactated ringer infusion Intravenous Continuous ??? lidocaine-epinephrine 1-1:286083 % injection Intra-Op Labs: Lab Results Component Value Date/Time SODIUM 142 10/21/2014 05:20 AM POTASSIUM 4.0 10/21/2014 05:20 AM CHLORIDE 105 10/21/2014 05:20 AM CO2 26 10/21/2014 05:20 AM BUN 11 10/21/2014 05:20 AM CREATININE 0.93 10/21/2014 05:20 AM GLUCOSE 108 10/21/2014 05:20 AM Lab Results Component Value Date/Time WBC 11.1* 10/21/2014 05:20 AM HGB 11.5* 10/21/2014 05:20 AM HCT 35.0* 10/21/2014 05:20 AM PLTS 120* 10/21/2014 05:20 AM INR (no units) Date Value 05/24/2016 1.0 05/22/2010 3.0 No results found for: HCGQUANT Urine : Urine : Blood Bank: ABO/RH(D) (no units) Date Value 07/28/2014 A NEGATIVE ANTIBODY SCREEN (no units) Date Value 07/28/2014 NEGATIVE EKG: Date of last EK04/11/10 ECG 12-LEAD ROUTINE Result Value Ref Range Ventricular Rate 114 BPM Atrial Rate 114 BPM P-R Interval 176 ms QRS Duration 92 ms QT 326 ms QTc 449 ms P [place] 60 degrees R [place] -42 degrees T [place] 26 degrees URL Link Physical Exam: BP 109/68 mmHg Pulse 99 Temp(Src) 97.7 ??F (36.5 ??C) (Oral) Resp 16 Ht 5' 9 (1.753 m) Wt108.863 kg (240 lb) BMI 35.43 kg/m2 SpO2 98% Assessment/Plan: Review of Systems Patient does not have GERD. Patient is not a smoker. The patient denies alcohol use. Patient denies any recent URI. History of PONV: No. History of motion sickness: No. Patient denies any personal or family history of anesthesia complications. Exam Mental Status: Alert, alert, oriented. Mallampati score: II (Two). Dentition: Normal and missing.Cardiac Exam: Regular rate and rhythm. Respiratory Exam: Breath sounds clear to auscultation Assessment ASA Status: 3 . Plan Anesthesia type: MAC Postoperative pain management: Plan for postoperative opioid use Anesthetic plan, risks, benefits and alternatives discussed with: Patient H&P Reviewed and Patient examined, no change observed IV access Antibiotics per surgery Brown Escalante MD 05/24/2016 11:47 AM documented in this encounter Plan of Treatment Not on filedocumented as of this encounter Visit Diagnoses Not on filedocumented in this encounter Administered Medications Inactive Administered Medications - up to 3 most recent administrations Medication Order MAR Action Action Date Dose Rate Site fentaNYL (aka SUBLIMAZE) injection Given 05/24/2016 3:06 PM CDT 1 mL Starting on [place] 05/24/16 at 1353, Until [place] 05/24/16 at 1506 Given 05/24/2016 3:04 PM CDT 1 mL Given 05/24/2016 3:00 PM CDT 0.5 mL lactated ringer infusion Started 05/24/2016 12:12 PM CDT Intravenous, at 30 mL/hr, CONTINUOUS, Starting on [place] 05/24/16 at 1045, Pre-op Started 05/24/2016 11:03 AM CDT 30 mL/hr midazolam (aka VERSED) injection Given 05/24/2016 12:12 PM CDT 2 mg Starting on [place] 05/24/16 at 1212, Until [place] 05/24/16 at 1506 ondansetron (aka ZOFRAN) injection Given 05/24/2016 1:10 PM CDT 4 mg Starting on [place] 05/24/16 at 1310, Until [place] 05/24/16 at 1506 propofol (aka diPRIvan) Rate/Dose 05/24/2016 1:41 60 mcg/kg/min 39.2 mL/hr injection Change PM CDT Intravenous, Starting on [place] 05/24/16 at 1225 Rate/Dose Change 05/24/2016 1:36 PM CDT 50 mcg/kg/min 32.67 mL/hr Rate/Dose Change 05/24/2016 1:32 PM CDT 30 mcg/kg/min 19.6 mL/hr propofol (aka diPRIvan) injection Given 05/24/2016 1:53 PM CDT 20 mg Intravenous, Starting on [place] 05/24/16 at 1353 documented in this encounter Care Teams Technical Specialist Cytology Relationship Specialty Start Date End Date Franklin Squires MD PCP - General Family Practice 03/08/[address] [place] [address] [place] [address] documented as of this encounter
--- OUTSIDE RECORDS SUMMARY | 2022-06-20 02:22 | XMS_ITS | Encounter Summary ---
:1945 Author Organization [facility] Address [address], [place] [address] Care Team Providers Name Role Phone Franklin Squires MD Primary Care Provider Encounter Details Date Type Department Care Team Description 02/09/2016 [facility] Jodi Aguila PA TIENT LIFT 401 NeuroSurgery PA-C PRESCRIPTION [address] [place] [address] [place], [place] [phone] [address] Social History Tobacco Use Types Packs/Day Years [...] on filedocumented in this encounter Care Teams Head Of Conservation Relationship Specialty Start Date End Date Franklin Squires MD PCP - General Family Practice 03/08/[address] [place] [address] [place] [address] documented as of this encounter
--- OUTSIDE RECORDS SUMMARY | 2022-06-20 02:22 | XMS_ITS | Encounter Summary ---
:1945 Author Organization [facility] Address [address], [place] [address] Care Team Providers Name Role Phone Loretta Mcmahan MD Primary Care Provider Unavailable Reason for Referral Consult/Transfer Care (Routine) - Closed Specialty Diagnoses / Procedures Referred By Contact Refer red To Contact Zelalem Cohen, Katia O [address] [place] [address] Referral ID Status Reason Start Date Expiration Date Visits Requ ested Visits Authorized [id number] Closed 11/18/2015 02/16/2017 1 1 Scheduling Instructions Please make an appointment with a pain p sychologist in [facility] Interventional Pain Management department. ACULTURE CONTRACTOR Reason for Visit Reason Comments QUESTIONS, GENERAL Encounter Details Date Type Department Care Team Description 11/17/2015 Telephone Specialty Center 401 Zelalem Cohen , QUESTIONS, GENERAL Interventional Pain DO Management [address] [place] [address] [phone] Social History Tobacco Use Types Packs/Day Years Used Date Smoking Tobacco: Never Smokeless Tobacco: Never Alcohol Use Standard Drinks/Week Comments No 0 (1 standard drink = 0.6 oz pure alcoho l) Sex Assigned at Date Recorded Male 08/06/2021 5:59 PM CDT documented as of this encounter Nursing Notes Mary Waterman RN - 11/18/2015 4:06 PM CST Sales Analytics Manager entered and triaged in Pain Psychology and SCS trial order, sent TE to PCP for coumadin clearance, and updated patient on below provider note. Patient verbalizes understanding of below provider note and does not have any additional questions or concerns at this time. Mary Waterman RN 11/18/2015, 4:10 PM ACULTURE CONTRACTOR Zelalem Cohen MD - 11/18/2015 11:23 AM CST Peripheral SCS for back pain Order please Pain psychology order please Dr. Benito Cohen ACULTURE CONTRACTOR Mary Waterman RN - 11/17/2015 4:[address] Cohen, Please advise. Per OV: 09-14-2015 Assessment: 1. Chronic back pain.2. SCI.3. Hx of ependymoma resection. Plan of Care: 1. Failed medications, would recommend to stop opioids, muscle relaxants as they do not sig help 2. No relief with RFA 3. Consider SCS trial, concern with lead placement in mid thoracic spine in relation to scar tissue from tumor resection, will need to consult with Dr. Neff Follow up: will call pt after discussion with neurosurgery Mary Waterman RN 11/17/2015, 4:17 PM ACULTURE CONTRACTOR Anjali Gallardo - 11/17/2015 3:53 PM CST Pt's calling would like to know if Dr. Cohen had consulted with Dr. Neff regarding procedure for an implant for pt's pain. Heather states they had this discussion back in September and have notheard back yet. Please advise Anjali Gallardo 11/17/2015, 3:54 PM ACULTURE CONTRACTOR documented in this encounter Plan of Treatment Scheduled Referrals Name Type Priority Associated Diagnoses Order S chedule PAIN PSYCHOLOGIST (ALICIA, Referral Routine O rdered: 11/18/2015 [facility]) [place] [facility] [id number] documented as of this encounter Visit Diagnoses Diagnosis Neuropathic pain - Primary Neuralgia, neuritis, and radiculitis, un specified Osteoarthritis of lumbar spine, unspecif ied spinal osteoarthritis complication status (HRC) documented in this encounter Care Teams Hand Coremaker Relationship Specialty Start Date End Date Loretta Mcmahan MD PCP - General Family Practice 10/21/1402/10 documented as of this encounter
--- OUTSIDE RECORDS SUMMARY | 2022-06-20 02:22 | XMS_ITS | Encounter Summary ---
:1945 Author [facility] Address [address], [place] [address] Care Team Providers Name Role Phone Franklin Squires MD Primary Care Provider Reason for Referral (Routine) - Incomplete Specialty Diagnoses / Procedures Referred By Contact Refer red To Contact Procedures Zelalem Cohen DO XR C-ARM 30-59 MIN [address] [place] [address] Referral ID Status Reason Start Date Expiration Date Visits V isits Requested Authorized [id number] Incomplete 03/08/2016 06/07/2017 1 1 Reason for Visit Auth/Cert Specialty Diagnoses / Procedures Referred By Contact Refer red To Contact Diagnoses Neuropathic pain . Referral ID Status Reason Start Date Expiration Date Visits Requ ested Visits Authorized [id number] 1 1 Encounter Details Date Type Department Care Team Description 03/08/2016 Hospital Encounter RH Operating Room Zelalem Cohen Midline low back [address] [facility], [place] [address] sciatica (Primary [phone] [place], [place] Dx) [address] Social History Tobacco Use Types Packs/Day Years Used Date Smoking Tobacco: Never Smokeless Tobacco: Never Alcohol Use Standard Drinks/Week Comments No 0 (1 standard drink = 0.6 oz pure alcoho l) Sex Assigned at Date Recorded Male 08/06/2021 5:59 PM CDT documented as of this encounter Last Filed Vital Signs Vital Sign Reading Time Taken Comments Blood Pressure 93/54 03/08/2016 10:50 AM CDT Pulse 86 03/08/2016 10:50 AM CDT Temperature 36.4 ??C (97.6 ??F) 03/08/2016 10:50 AM CDT Respiratory Rate 16 03/08/2016 10:50 AM CDT Oxygen Saturation 96% 03/08/2016 10:50 AM CDT Inhaled Oxygen Concentration - - Weight 108.9 kg (240 lb) 03/08/2016 6:15 AM CDT Height 175.3 cm (5' 9) 03/08/2016 6:15 AM CDT Body Mass Index 35.44 03/08/2016 6:15 AM CDT documented in this encounter Discharge Instructions Discharge InstructionsLea Danielle RN - 03/08/2016 9:42 AM CDT Discharge Instructions for: Jeff Cullen Thank you for choosing [facility] as your provider. A copy of your discharge instructions has been given to you. Please read the instructions carefully. The surgery nurse will review this information with you and answer your questions. General Information Surgeon(s): Zelalem Cohen MD Procedure(s): PERIPHERAL PLACEMENT OF STIMULATOR LEAD FOR TRIAL Surgeon Orders/Follow Up Appointment Spinal Cord Stimulator Therapy - Trial Instructions Follow up in clinic as scheduled Follow up with [email or web address]@ in clinic as scheduled. Contact Information If it is after hours call the Careline at [phone]. [facility]: [phone] Follow Up Appointment Scheduled on 03/13/16 at 11:00am with Pain Mgmt Nurse. Anesthesia Today you received General/Minor Sedation: Rest in bed the day of surgery, then advance to [...] extra careful walking up and down stairs. Let's talk about the DANGER SIGNALS to watch for after you go home. I should call my clinic if I experience any of the following: ?? Temperature higher than 101 degrees Fahrenheit ?? Redness that has spread ?? Persistent bleeding ?? Purulent drainage for incision site ?? Reaction to new medications ?? Severe pain ?? Swelling Activity/Mobility Let's talk about when you can resume your normal activities. Rest quietly the day of your surgery, then return to normal activity unless otherwise instructed by your surgeon. I have received instructions on my diet: resume regular diet. Medications Let's talk about the purpose and side effects of the medications that you will be taking home. New Medications: when to take them, what they are for, and adverse reactions. The possible side effects are: constipation, rash, nausea and diarrhea. Please read the drug information enclosed in your pharmacy bag. You had your pain medication in the OR. You can take your pain medication when you get home if you are having discomfort. @[email or web address]@ It is important to us that you had a great experience and great care. We want you to be completely satisfied with all aspects of your care. You might be receiving a survey in the next couple of weeks about the care you received. We would appreciate it very much if you would complete and return it. It is our goal to make [facility] your hospital of choice and want you to feel confident in recommending [facility] to your family and friends. Thank you for choosing [facility]. The nurse has reviewed the above discharge instructions with me. I understand my discharge instructions. Jeff Cullen (or Manager Park) [employer]ush Cutter Nurse Discharge Instructions for TRIAL PHASE Spinal Cord Stimulator Therapy Call [phone] with questions about the wound: Contact the device customer response representative with questions about programming the unit. Wound Care: ?? Patients must be seen in the office within seven days after surgery. ?? No showers until after you have been to the office (only sponge baths). Stay away from the leads/incision sites. ?? DO NOT TOUCH THE DRESSING OF THE WOUND. If you feel it needs to be changed, contact the office. ?? Trial stimulator patients will usually have their leads removed at their wound check appointment.Reprogramming may be necessary at that time. Immediate Post-operative Activity Recommendations: ?? During the trial phase you are to be active in order to experience the benefits of the stimulator. ?? Try to get out and walk and maximize your function during this time. ?? Note that excessive twisting, and bending past 45 degrees could cause the stimulator lead to moveslightly. This is not concerning if it occurs and should not be a reason to limit your activity during the trial phase. Other Precautions: ?? Do not operate heavy machinery (i.e. automobile) with the stimulator ???on?? . ?? If you develop an infection symptoms such as night sweats, fever, chills, etc. of any kind, please consult with our office. documented in this encounter Medications at Time [...] 40 meq twice 0 (KLOR-CON OR) daily warfarin (AKA COUMADIN) 5 Take 1 tablet [...] MRI and 1 hour prior to MRI furosemide (AKA LASIX) 20 Take 1 Tab by mouth 30 Tab 11 1 12/22/2013 01/18/2022 MG tablet daily as needed (Edema). Generic Medication Apply 1-2 grams to 250 g 6 6 01/18/2022 (COMPOUNDED CREAM) the lower back TID prn. HYDROXYZINE HCL OR 0 2021 lidocaine (AKA LIDODERM) 5 Apply 2 Patches to 60 Patch 1 0 01/18/2015 01/18/2022 % patch skin . Apply once for up to 12 hrs within a 24 hr period. lidocaine (AKA XYLOCAINE) 5 Apply to the lower 30 g 0 01/20/2015 01/18/2022 % ointment back TID prn niacin 500 MG Take 1 Tab by mouth 0 10/21/2014 tabletIndications: daily with Hypercholesterolemia breakfast. Indications: High Amount of Cholesterol in the Blood triamcinolone acetonide 0 12/08/2015 0 01/18/2022 (KENALOG) 0.1 % cream trimethoprim (AKA TRIMPEX) Take 100 mg by 0 01/18/2022 100 MG tablet mouth daily. documented as of this encounter H&P Notes Kati Santillan MD - 03/08/2016 7:00 AM CDT [facility] Interval History and Physical Note The attached H&P has been reviewed. The patient was examined. No change observed. Source Note - External, Provider - 02/21/2016 12:00 AM CDT documented in this encounter Procedure Notes Zelalem Cohen MD - 03/08/2016 10:40 AM CDT Procedure: Peripheral Stimulator Trial, 4 leads Dx: 1. Chronic back pain 2. Hx of Spinal cord Injury, ependymoma Vendor: [facility] Surgeon: Dr. Cohen Consent: The risks and benefits were discussed with the pt who agreed to the above procedure. She signed the consent form. Procedure description: Pt received Vancomycin 1.5 grams The patient was brought to OR# 8 and placed prone on the fluoroscopy table. The lumbar spine was prepared and draped in the usual sterile fashion. Fluoroscopy was utilized to identify the the L1-L5 levels. After monitored anesthesia care was initiated, the skin and subcutaneous tissues were anesthetized with 1% Lidocaine. A 14-guage stiletted epidural needle was then placed on the right a the L1 level into the subcutaneous tissue. Following this, a 50 cm lead with 8 contacts Model [id number], SN [id number] was advanced in the subcutaneous tissue to cover the right low back at the L1 level. I then placed a second lead on the left side at the L1 level in a similar fashion. Again, a 50 cm lead with 8 con tacts Model [id number], SN [id number] was advanced in the subcutaneous tissue to cover the left low back at the L1 level. I then placed a third lead in a similar fashion but at the right side at the L5 level. Again, a 50 cm lead with 8 contacts Model [id number], SN [id number] was advanced in the subcutaneous tissue to coverthe right low back at the L5 level. I then placed a 4th lead in a similar fashion but at the left side at the L5 level. Again, a 50 cm lead with 8 contacts Model [id number], SN [id number] was advanced inthe subcutaneous tissue to cover the left low back at the L5 level. The needles were removed and the leads were secured to the back with the use an achor with one suture-2-0 silk and steri-strips per lead. An island dressing was placed. The patient was taken to the recovery area in excellent condition. We then programed the stimulator going through multiple combinations of the rate, amplitude, duration, and configuration of wave form to acheive optimal paresthesia coverage. Total programing time: <1 hour The pt was discharged in stable condition. Instructions: 1. No bathing or soaking of the dressing 2. Do not remove the dressing 3. No excessive bending forward at the trunk or rotation 4. No driving with the stimulator on 5. Call if fever, chills, sweats 6. Clindamycin 300mg po qid for 5 days 7. F/u in one wk in clinic 8. [facility] customer response representative will call you daily Dr. Benito Peterson, pain fellow participated in the procedure and care of this patient under my direct supervision. Dr. Cohen Zelalem Cohen MD - 03/08/2016 8:51 AM CDT [facility] Operative Note Surgery Date: 03/08/2016 Surgeon(s) and Role: * Zelalem Cohen MD - Primary FELLOW-DAVID PETERSON Pre-op Diagnosis: * Neuropathic pain [M79.2] Post-op Diagnosis: * Neuropathic pain [M79.2] Procedure(s) (LRB): PERIPHERAL PLACEMENT OF STIMULATOR LEAD FOR TRIAL (N/A) EBL: 0 Specimens: Specimen ID Type Site Comments Sent To NONE Findings: 0 Technique: 0 Complications: 0 Zelalem Cohen MD documented in this encounter Plan of Treatment Not on filedocumented as of this encounter Procedures Procedure Name Priority Date/Time Associated Comments Diagnosis XR C-ARM 30-59 MINUTES Routine 03/08/2016 8:35 Re sults for AM CDT this procedure are in the results section. PERCUTANEOUS TRIAL Same Day 03/08/2016 7:25 Neuropathic pain STIMULATION Surgery AM CDT CERVICOTHORACIC SPINAL CORD Case Notes PROC: SPINAL CORD STIMULATOR TRIAL INR/PROTIME Routine 03/08/2016 6:31 AM CDT Resul ts for this procedure are in the results section . documented in this encounter Results XR C-ARM 30-59 MIN (03/08/2016 8:35 AM CDT) Anatomical Region Laterality Modality X-Ray Angiography Specimen (Source) Anatomical Location Collection Method / Collectio n Time Received Time / Laterality Volume Narrative 03/08/2016 8:43 AM CDT Fluoroscopy provided by a product/device technologist. Exact fluoroscopy time is documented in end of exam information in EPIC Zelalem Cohen DO RAD GD INR/PROTIME (03/08/2016 6:31 AM CDT) athologist Signature Protime 13.0 12.0 - 14.5 [facility] INR 1.0 0.9 - 1.1 [facility] Specimen Anatomical Collection Method Collection Time Receive d Time (Source) Location / / Volume Laterality 03/08/2016 6:31 AM 6 6:38 CDT AM CDT Narrative [facility] - 03/08/2016 7:01 AM CD T Performed at [facility] , [address] [place] [id number] Zelalem Cohen DO LAB_1 Performing Organization Address City/State/ZIP Code Phon e Number [address] [address] documented in this encounter Visit Diagnoses Diagnosis Midline low back pain without sciatica - Primary documented in this encounter Administered Medications Inactive Administered Medications - up to 3 most recent administrations Medication Order MAR Action Action Date Dose Rate Site lactated ringers infusion Started 03/08/2016 6:15 AM CDT 30 mL/hr Intravenous, at 30 mL/hr, CONTINUOUS, Starting on [place] 03/08/16 at 0615, Pre-op lidocaine (aka XYLOCAINE) 1 % injection Given 03/08/2016 7:58 AM CDT INTRA-OP, Starting on [place] 03/08/16 at 0534, Until [place] 03/08/16 at 0758, For 1 dose, Verify Route and Dose with Surgeon Prior to Administration vancomycin (aka VANCOCIN) injection 1,000 Given 03/08/2016 6 :44 AM CDT 1,000 mg mg 1,000 mg, Intravenous, ONCE (NON-SCHEDULED), Starting on [place] 03/08/16 at 0556, For 1 dose, For patient with weight 80 to 119 kg and Penicillin or Cephalosporin allergy PRE-OP ANTIBIOTIC Give Vancomycin 1500 mg total dose., Pre-op vancomycin (aka VANCOCIN) injection 500 mg Given 03/08/2016 6:45 AM CDT 500 mg 500 mg, Intravenous, ONCE (NON-SCHEDULED), Starting on [place] 03/08/16 at 0556, For 1 dose, For patient with weight 80 to 119 kg and Penicillin or Cephalosporin allergy PRE-OP ANTIBIOTIC Give Vancomycin 1500 mg total dose., Pre-op documented in this encounter Active and Recently Administered Medications Times are shown in CDT. Scheduled Medication Order 03/06/2016 03/07/2016 03/08/2016 lidocaine (aka XYLOCAINE) 1 % injection (CANCELED) 0758 (Given - Provider: Roxanne Clark RN - Comment: 1% LIDOCAINE (PRESERVATIVE FREE). 30ML ON FIELD, 24ML INJECTED INTO OPERATIVE SITES) INTRA-OP, 1 dose, Starting [place] 03/08/16 at 0534, Until Discontinu ed vancomycin (aka VANCOCIN) injection 1,000 mg (COMPLETED) 0644 (Given - Provider: Lenore Garcia, VALERIE) 1,000 mg, Intravenous, ONCE (NON-SCHEDUL ED), 1 dose, Starting [place] 03/08/16 at 0556, Until Discontinued, Pre-op vancomycin (aka VANCOCIN) injection 500 mg (COMPLETED) 0645 (Given - Provider: Lenore Garcia, RN) 500 mg, Intravenous, ONCE (NON-SCHEDULED ), 1 dose, Starting [place] 03/08/16 at 0556, Until Discontinued, Pre-op Continuous Medication Order 03/06/2016 03/07/2016 03/08/2016 lactated ringers infusion (CANCELED) 0615 (Started - Provider: Lenore Garcia, VALERIE)0732 (Canceled Entry - Provider: Delisa Hill APRN, DONOR PROCESSOR)0848 (Infused - Provider: Delisa Hill APRN, DONOR PROCESSOR) at 30 mL/hr, Intravenous, CONTINUOUS, St arting [place] 03/08/16 at 0615, Until Discontinued, Pre-op documented in this encounter Care Teams Dairy Farm Manager Relationship Specialty Start Date End Date Franklin Squires MD PCP - General Family Practice 03/08/[address] [place] [address] documented as of this encounter
--- OUTSIDE RECORDS SUMMARY | 2022-06-20 02:22 | XMS_ITS | Encounter Summary ---
:1945 Author Organization [facility] Address [address], [place] [address] Care Team Providers Name Role Phone Loretta Mcmahan MD Primary Care Provider Unavailable Reason for Visit Reason Comments Revisit F/u Encounter Details Date Type Department Care Team Description 06/07/2015 Office Visit Specialty Center Garry Neff Epsalome ndymoma (Primary Dx); 401 NeuroSurgery X, Facet arthropathy, lumbar; [address] [place]ilateral [place] [address] [place], [place] [phone] (Wo rk) Social History Tobacco Use Types Packs/Day Years Used Date Smoking Tobacco: Never Smokeless Tobacco: Never Alcohol Use Standard Drinks/Week Comments No 0 (1 standard drink = 0.6 oz pure alcoho l) Sex Assigned at Date Recorded Male 08/06/2021 5:59 PM CDT documented as of this encounter Last Filed Vital Signs Vital Sign Reading Time Taken Comments Blood Pressure 99/43 06/07/2015 12:35 PM CDT Pulse 90 06/07/2015 12:35 PM CDT Temperature - - Respiratory Rate 14 06/07/2015 12:35 PM CDT Oxygen Saturation - - Inhaled Oxygen Concentration - - Weight - - Height - - Body Mass Index - - documented in this encounter Patient Instructions Patient InstructionsSelene Johnson RN - 06/07/2015 1:01 PM CDT Neurosurgery/Spine Clinic Patient Instructions Continue with the percutaneous Rhyzolysis for the L 4-5 You have carpal tunnel syndrome-severe on the left call if you would like to pursue release. You will be scheduled for a thoracic MRI-in 1.5 year. We will call you with a date and time for surgery. Follow up with Dr. Garry Neff as directed above If tests were ordered, they will be reviewed at your next office visit. Please allow 10-14 days for forms to be completed and 2-3 business days for medication refills. If you have a change in your [...] ask for your understanding. Please call the Neurosurgery/Spine Clinic at [phone] with any further questions or concerns. documented in this encounter Progress Notes Garry Neff MD - 06/29/2015 4:09 PM CDT Agree with above Garry Neff MD Jodi Aguila PA-C - 06/29/2015 3:53 PM CDT IJodi PA-C, am acting as a director report for Dr. Neff, I am transcribing directly from notes Dr. Neff took during the clinic visit Clinic Follow-up Chief Complaint: Back pain, left hand numbness, follow up ependymoma Jeff Cullen is a 70 y.o. old male presents today for a follow up visit. 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 Prior to this surgery, he had resection x 2 and radiation. He had paraplegia from prior to surgery with neurogenic bowel/bladder with indwelling catheter and colostomy. He remains insensate in the LEs with chronic light tingling on anterior thighs. We have been treating Jeff for his low back pain, and left L1- L2 rhizotomy was successful in helping his severe upper low back pain. Jeff had good response to bilateral L4-S1 RFAs. He was also c/o left hand numbness, cervical MRI was done showing no significant nerve compression. He is here to review EMG as well. Objective: BP 99/43 mmHg Pulse 90 Resp 14 Wt Imaging: Thoracic MRI: 1. Again demonstrated are postsurgical and posttreatment changes associated with resection and radiation of a thoracic spinal ependymoma without evidence for residual/recurrent disease. 2. Flattening and apparent adhesion of the thoracic spinal cord at the levels of resection with apparent adhesion to the posterior dura of the thecal sac from the T2-T3 through mid T5 level. 3. Expansile T2 hyperintense changes within the distal thoracic cord extending from T10 through T11 through the conus medullaris with interval increase in size from previous examination demonstrating a maximum AP diameter of 8 mm, previously 5mm. 4. No significant interval change in size of lobulated and heterogeneous fluid collection within thedorsal paraspinal soft tissues at the level of surgery. 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 Mild to moderate left C5 radiculopathy. Severe lesion of right median nerve at level of wrist. Assessment: 70 yo male s/p resection of thoracic ependymoma, post-op meningitis, paraplegia. Low back pain, good response with left L1-L2 RFA but now having more lumbosacral pain related to L4-L5, L5-S1 arthropathy Non-traumatic SDH, s/p right frontoparietal craniotomy for evacuation by Dr. Shelley H/o coumadin use with IVC filter LUE numbness, EMG shows bilateral severe carpal tunnel syndrome Plan he was seen and evaluated by Dr. Neff, who discussed the plan in full with patient using their ownimaging. Recommend he proceed with percutaneous rhizolysis and call with response. Thoracic MRI w/wo contrast in 1.5 years. Continue wrist braces for carpal tunnel, call if symptoms worsen and will complete carpal tunnel release. Jeff expressed agreement and understanding with this plan. Total time Dr. Neff spent [id number] with patient was 25 minutes, over 50% spent on counseling. 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
--- OUTSIDE RECORDS SUMMARY | 2022-06-20 02:22 | XMS_ITS | Encounter Summary ---
:1945 Author Organization [facility] Address [address], [place] [address] Care Team Providers Name Role Phone Franklin Squires MD Primary Care Provider Encounter Details Date Type Department Care Team Description 03/08/2016 Consent for [facility] Department RH INFORM ED [...] on filedocumented in this encounter Care Teams Waxer Tender Relationship Specialty Start Date End Date Franklin Squires MD PCP - General Family Practice 03/08/[address] [place], [place] [address] [phone] documented as of this encounter
--- OUTSIDE RECORDS SUMMARY | 2022-06-20 02:22 | XMS_ITS | Encounter Summary ---
:1945 [facility] Address [address] [address] Care Team Providers Name Role Phone Loretta Mcmahan MD Primary Care Provider Unavailable Encounter Details Date Type Department Care Team Description 06/16/2015 Orders Only External to Alfonso Carlson MD [address] [place], [place] [address] (Wo rk) Social History [...] Date/Time Associated Diagnosis Comme nts OUTSIDE IMAGING 06/16/2015 12:00 AM Resul ts for this CDT procedure are i n the results section. documented in this encounter Results OUTSIDE IMAGING (06/16/2015 12:00 AM CDT) Anatomical Region Laterality Modality Other Specimen (Source) Anatomical Location Collection Method / Collectio n Time Received Time / Laterality Volume 06/16/2015 Narrative This result has an attachment that is no t available. Garry Neff MD RAD_1 documented in this encounter Visit Diagnoses Not on filedocumented in this encounter Care Teams Tube Winder Relationship Specialty Start Date End Date Loretta Mcmahan MD PCP - General Family Practice 10/21/14/2 05/26 documented as of this encounter
--- OUTSIDE RECORDS SUMMARY | 2022-06-20 02:22 | XMS_ITS | Encounter Summary ---
:1945 Author Organization [facility] Address [address] [place] [address] Care Team Providers Name Role Phone Loretta Mcmahan MD Primary Care Provider Unavailable Reason for Visit Procedure/Equipment (Routine) - Incomplete Specialty Diagnoses / Procedures Referred By Contact Refer red To Contact Diagnoses Back pain, 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 Garry Neff MD Procedures MR THORACIC SPINE WITH/WITHOUT CONTRAST [address] [place] [address] Referral ID Status Reason Start Date Expiration Date Visits V isits Requested Authorized [id number] Incomplete 12/21/2015 1 1 Encounter Details Date Type Department Care Team Description 01/06/2016 Imaging [facility] Specialty Alfonso Neff, Screening for nephropathy (Primary Dx); Center MRI Back pain, chronic; [address] Paraplegia (HRC); [place] [address] [place] [address] Ependymoma (HRC) [phone] (Wo rk) Social History Tobacco Use Types [...] Name Priority Date/Time Associated Diagnosis Comme nts MR THORACIC SPINE Routine 01/06/2016 12:11 PM Back pain, chronic Results for this W/WO IV CONT BIKE SHOP MANAGER Paraplegia (HRC) procedure are in [facility] the results Screening for section. nephropathy CREATININE/GFR, WB Routine 01/06/2016 12:04 PM Back pain , chronic Results for this POC [employer]KE SHOP MANAGER Paraplegia (HR) procedure are in [facility] ([facility]) the results Screening for section. nephropathy documented in this encounter Results MR THORACIC SPINE WITH/WITHOUT CONTRAST (01/06/2016 12:11 PM BIKE SHOP MANAGER) Anatomical Region Laterality Modality Spine, T-Spine, L-Spine, C-Spine, Skeletal Magnetic Resonance Specimen (Source) Anatomical Collection Method Collection Time Re ceived Time Location / / Volume Laterality 01/06/2016 12:11 PM BIKE SHOP MANAGER Narrative 01/06/2016 1:31 PM BIKE SHOP MANAGER MR THORACIC SPINE W/WO CONT 01/06/2016 12:11 PM INDICATION: Follow-up thoracic tumor res ection. Paraplegia. TECHNIQUE: Without and with gadolinium. Gadavist 10 mL IV. COMPARISON: Most recent MR 06/07/2015. FINDINGS: Lateral thoracic alignment sat isfactory. Stable post radiation changes in the upper and mid thoracic ve rtebral bodies. Stable laminectomy changes from approximately T2 through T5 -T6. The atrophic-appearing spinal cord is again noted to be likely adheren t to the posterior thecal sac from T2 through T5, unchanged from prior stud y. No recurrent enhancing mass is seen. Stable somewhat lobulated fluid co llection in the laminectomy bed. Stable appearance of the mid and lower t horacic spinal cord with stable abnormal signal change in the distal cor d and conus. Stable expansion of the distal cord. No new enhancement in t his region. The thoracic cord from T6 through T10-T11 is very thin and disp laced or positioned posteriorly along the thecal sac, all stable from pr ior study. This simply could be related to cord atrophy or some type of loculated CSF collection anterior to the cord. These findings are all stab le. No new paraspinal lesion. CONCLUSION: 1. ??Overall imaging findings stable fro m MRI 06/07/2015. 2. ??Again seen are postoperative change s in the upper thoracic posterior elements from prior ependymoma resection . No recurrent tumor is seen. Stable posterior adherence of the atroph ic cord through the surgical bed. 3. ??Stable appearance of the mid and lo wer thoracic cord including the mildly expansile signal changes in the d istal cord and conus medullaris. 4. ??Stable atrophic/flattened mid to lo wer thoracic cord from T5 through T10. This could be due to cord atrophy o r possibly some type of anterior loculated CSF collection within the ante rior central canal. This is all stable. No new distal enhancement. Procedure Note Harshad Browne MD - 01/06/2016Formatt ing of this note might be different from the original. MR THORACIC SPINE W/WO CONT 01/06/2016 12:11 PM INDICATION: Follow-up thoracic tumor res ection. Paraplegia. TECHNIQUE: Without and with gadolinium. Gadavist 10 mL IV. COMPARISON: Most recent MR 06/07/2015. FINDINGS: Lateral thoracic alignment sat isfactory. Stable post radiation changes in the upper and mid thoracic ve rtebral bodies. Stable laminectomy changes from approximately T2 through T5 -T6. The atrophic-appearing spinal cord is again noted to be likely adheren t to the posterior thecal sac from T2 through T5, unchanged from prior stud y. No recurrent enhancing mass is seen. Stable somewhat lobulated fluid co llection in the laminectomy bed. Stable appearance of the mid and lower t horacic spinal cord with stable abnormal signal change in the distal cor d and conus. Stable expansion of the distal cord. No new enhancement in t his region. The thoracic cord from T6 through T10-T11 is very thin and disp laced or positioned posteriorly along the thecal sac, all stable from pr ior study. This simply could be related to cord atrophy or some type of loculated CSF collection anterior to the cord. These findings are all stab le. No new paraspinal lesion. CONCLUSION: 1. Overall imaging findings stable from MRI 06/07/2015. 2. Again seen are postoperative changes in the upper thoracic posterior elements from prior ependymoma resection . No recurrent tumor is seen. Stable posterior adherence of the atroph ic cord through the surgical bed. 3. Stable appearance of the mid and lowe r thoracic cord including the mildly expansile signal changes in the d istal cord and conus medullaris. 4. Stable atrophic/flattened mid to lowe r thoracic cord from T5 through T10. This could be due to cord atrophy o r possibly some type of anterior loculated CSF collection within the ante rior central canal. This is all stable. No new distal enhancement. Garry Neff MD RAD MRI CREATININE/GFR, WB POC (01/06/2016 12:04 PM BIKE SHOP MANAGER) P athologist Signature Creat Whole 0.9 0.66 - [facility] Blood 1.25 mg/dl [facility] GFR, Estimated >60 >60 [facility] ml/min/1.7 [facility] 3m2 GFR, Est., If >60 >60 [facility] Black ml/min/1.7 [facility] 3m2 Specimen Anatomical Collection Method Collection Time Receive d Time (Source) Location / / Volume Laterality 01/06/2016 12:04 01/06/2016 PM BIKE SHOP MANAGER 12:21 PM BIKE SHOP MANAGER Trae Blair MD LAB_1 Performing Organization Address City/State/ZIP Code Phon e Number [facility] [phone] documented in this encounter Visit Diagnoses Diagnosis Screening for nephropathy - Primary Back pain, chronic Backache, unspecified Paraplegia (HRC) Paraplegia 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, unspecified site documented in this encounter Administered Medications Inactive Administered Medications - up to 3 most recent administrations Medication Order MAR Action Action Date Dose Rate Site gadobutrol (aka GADAVIST) 1 Given 01/06/2016 12:12 PM BIKE SHOP MANAGER 10 mL MMOL/ML injection 10 mL 10 mL, Intravenous, ONCE (NON-SCHEDULED), Starting on Sat01/06/16 at 1212, Until Sat01/06/16 at 1212, For 1 dose documented in this encounter Care Teams Pipe Finishing Supervisor Relationship Specialty Start Date End Date Loretta Mcmahan MD PCP - General Family Practice 10/21/1402/10 documented as of this encounter
--- OUTSIDE RECORDS SUMMARY | 2022-06-20 02:22 | XMS_ITS | Encounter Summary ---
:1945 Author Organization [facility] Address [address] [place] [address] Care Team Providers Name Role Phone Loretta Mcmahan MD Primary Care Provider Unavailable Reason for Visit Reason Comments Revisit Left-sided low back pain wit hout sciatica Encounter Details Date Type Department Care Team Description 09/14/2015 Office Visit Specialty Center [address] Cohen europathic pain (Primary Dx); Interventional Pain L, DO Osteoarthritis of lumbar spine, unspecif ied spinal osteoarthritis complication status Management [address] [place] [address] [phone] Social History Tobacco Use Types Packs/Day Years Used Date Smoking Tobacco: Never Smokeless Tobacco: Never Alcohol Use Standard Drinks/Week Comments No 0 (1 standard drink = 0.6 oz pure alcoho l) Sex Assigned at Date Recorded Male 08/06/2021 5:59 PM CDT documented as of this encounter Last Filed Vital Signs Vital Sign Reading Time Taken Comments Blood Pressure 152/88 09/14/2015 10:05 AM TONGSMAN notified pt and MD about BP Pulse 91 09/14/2015 10:05 AM TONGSMAN Temperature - - Respiratory Rate - - Oxygen Saturation - - Inhaled Oxygen Concentration - - Weight - - Height - - Body Mass Index - - documented in this encounter Progress Notes Zelalem Cohen MD - 09/14/2015 12:14 PM CST Pain clinic follow up visit: Subjective: hx of ependymoma resection, SCI, w/c bound. Chronic back pain, lumbar, [facility], Some better days but overall continues to have sig back pain that at times wants to go to ED. Taking multiple medications prn for pain, overall nothing really helps him. PRN baclofen, lidocaine, norco, on scheduled neurontin. F/u with dr. Neff. Objective: Filed Vitals: 09/14/15 1005 BP: 152/88 Pulse: 91 Gen: nad, a/o present In w/c Insensate low back to touch Skin low back cdi Assessment: 1. Chronic back pain 2. SCI 3. Hx of ependymoma resection Plan of Care: 1. Failed medications, would recommend to stop opioids, muscle relaxants as they do not sig help 2. No relief with RFA 3. Consider SCS trial, concern with lead placement in mid thoracic spine in relation to scar tissue from tumor resection, will need to consult with Dr. Neff Follow up: will call pt after discussion with neurosurgery Zelalem Cohen MD 09/14/2015, 12:14 PM SMAN documented in this encounter Plan of Treatment Not on filedocumented as of this encounter Visit Diagnoses Diagnosis Neuropathic pain - Primary Neuralgia, neuritis, and radiculitis, un specified Osteoarthritis of lumbar spine, unspecif ied spinal osteoarthritis complication status (HRC) documented in this encounter Care Teams Offal Baler Relationship Specialty Start Date End Date Loretta Mmcahan MD PCP - General Family Practice 10/21/1402/10 documented as of this encounter
--- OUTSIDE RECORDS SUMMARY | 2022-06-20 02:22 | XMS_ITS | Encounter Summary ---
:1945 Author [facility] Address [address] [address] Care Team Providers Name Role Phone Loretta Mcmahan MD Primary Care Provider Unavailable Reason for Visit Reason Comments CHRONIC PAIN Consult/Transfer Care (Routine) - Closed Specialty Diagnoses / Procedures Referred By Contact Refer red To Contact Zelalem [address] [place] [address] Referral ID Status Reason Start Date Expiration Date Visits Requ ested Visits Authorized [id number] Closed 11/18/2015 02/16/2017 1 1 Encounter Details Date Type Department Care Team Description 11/23/2015 Office Visit [facility] Priti Yang, Somatic s ymptom Interventional Pain WILBUR Morse disorder (Primary Management [address] [facility] Dx) [address] [place] [place] [address] [phone] Social History Tobacco Use Types Packs/Day Years Used Date Smoking Tobacco: Never Smokeless Tobacco: Never Alcohol Use Standard Drinks/Week Comments No 0 (1 standard drink = 0.6 oz pure alcoho l) Sex Assigned at Date Recorded Male 08/06/2021 5:59 PM CDT documented as of this encounter Progress Notes Priti Yang PsyD, LP - 11/23/2015 12:58 PM CST PAIN PSYCHOLOGY INTAKE NOTE IDENTIFYING INFORMATION Length of session: 50 minutes Jeff Cullen is a 70 y.o. old male presenting with his for a psychology intake. INFORMED CONSENT AND CONFIDENTIALITY: This mortgage or loan underwriter's credentials and therapeutic style were discussedwith the patient. The purpose of the evaluation and subsequent counseling sessions were reviewed with the patient. Issues of confidentiality were clearly addressed. The patient expressed understanding of these issues and provided informed consent to proceed. REFERRAL DATA/PRESENTING PROBLEM Presenting problem: pain issues Patient referred by: Zelalem Cohen MD HISTORY/DESCRIPTION OF PROBLEM(S) Jeff has had low back pain since he had surgery for a tumor T3-T6 and an additional four surgeries because the tumor continued to grow back. He has some paralysis as well. He presents for a psychological evaluation and psychological treatment recommendations for spinal cord stimulater SYMPTOMS PHQ-9 was administered, with a score of 15 Mood: depressed Insomnia: Usually sleeps well with medication Appetite: Unchanged Interest in activities: Decreased Energy: Decreased Concentration: decreased Hopelessness: sometimes Helplessness: sometimes Worthlessness:sometimes Guilt: no Crying: more than ususal Suicide ideation: Denies Homicide ideation: None Identified Self-injurious behavior: no Hallucinations:no Delusions: no Panic attacks: no Phobias: no Anxiety: generalized Obsessive Compulsive Behavior: no Traumatic events: none Flashbacks: no Distress about anniversary or event: no Avoidant: no Memory impairment: short-term Somatization: no Eating disorder: no MEDICAL INFORMATION Chronic pain:Yes, Current medical problems/diagnoses: . Please see electronic medical record for complete information. Current medications: Outpatient Prescriptions Prior to Visit Medication Sig Dispense Refill ??? atorvastatin (LIPITOR) [...] and 2 tabs in afternoon ??? furosemide (AKA LASIX) 20 MG tablet [...] grams to the lower back TID prn. Ketamine 10%, boclofen 2%, gabapentin 6%, verapamil 6%. Apply to low back TID prn 250 g 6 ??? HYDROcodone-acetaminophen (AKA NORCO) 5-325 MG tablet Take 1-2 Tabs by mouth every 4 hours as needed for Pain. 90 Tab 0 ??? HYDROXYZINE HCL OR ??? lidocaine [...] Amount of Cholesterol in the Blood ??? polyethylene glycol (AKA MIRALAX) packet Take 1 Packet by mouth daily. Indications: [id number] Each 2 ??? Potassium Chloride (KLOR-CON OR) Takes 40 meq twice daily ??? trimethoprim (AKA TRIMPEX) 100 MG tablet Take 100 mg by mouth daily. ??? warfarin (AKA COUMADIN) 5 MG tablet Take 1 tablet (5mg) by mouth on Mondays and take 1.5 tablets(7.5mg) all other days of the week Indications: Blood Clot in a Deep Vein No facility-administered medications prior to visit. Primary care physician: Loretta Mcmahan MD Other physicians currently involved in care:Dr. Ramon Neff MENTAL HEALTH HISTORY Previous therapy: None Previous psychiatry: None Previous psychiatric hospitalizations: None Previous diagnoses: None Previous suicide attempts:None History of violence: None CHEMICAL HEALTH HISTORY Tobacco use:None Caffeine use:Occaional Coke Current substance use: no drugs or alcohol Legal consequences of chemical use: None Dates and types of CD treatment received: None Patient feels he ought to cut down on drinking and/or drug use:no Patient has been annoyed by others criticizing his drinking or drug use: no Patient has felt bad or guilty about his drinking or drug use:no Patient has had a drink or 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 Good support system Relevant family data: He grew up in [place]. He has six siblings- one brother is .. Parents Family history of psychiatric problems: None Family history of substance abuse problems: He thinks his father was an alcoholic History of physical/sexual/abuse: None Employment/school history: He completed 12th grade. He worked in [employer] before he went into the . He was in the for 22 years. Zoroastrian/spiritual beliefs:Congregation Current stressors include: None Identified Other relevant data: None Exercise: He has been unable to exercise for months MENTAL STATUS EXAMINATION Physical appearance: healthy and normal build Dress: appropriate casual attire Grooming and hygiene: good Behavior/manner: pleasant and cooperative Motor activity: calm Affect: neutral quality, appropriate range Content of thought: no problem Understands reasons for evaluation Motivated for treatment Judgment: normal Insight: normal Speech: normal (well-modulated, articulate, normal tone and speed) Thought process: normal Orientation: oriented to time, person, place, situation Vocabulary: average Concentration: normal Fund of knowledge: normal Ability to abstract: YES ASSESSMENT Risk of harm to self: none Risk of harm to others: none Based on this intake, the patient has the following diagnoses: [place] I: 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 SUMMARY: Jeff presents with presents with symptoms that meet criteria for a somatic symptom disorder. This diagnosis is evidenced by the degree of psychosocial impairment that is occurring as a result of pain, preoccupation with pain and increased medical utilization. Factors that likely contribute to the onset, severity and and/or maintenance of the pain problem and disability behavior include: anxiety, depression, employment problems, and difficulty enjoying leisure and social activities, isolation from family and friends and the pain has affected his emotional well-being. He has been treated for anxiety but has never been hospitalized for mental health issues. Hedenies a history of chemical dependency or chemical dependency treatment. RECOMMENDATIONS FOR SPINAL CORD STIMULATOR: It is this psychologist's clinical opinion that Jeff has no previously unaddressed or untreated underlying contributory mental health conditions or psychological issues. He admits to feeling stressed at times as a result of his chronic physical pain, never though to the level of a clinically significant depressive episode. He denies any past/current suicidality, homicidality, swathi/hypomania, psychosis or active drug use other than utilizing prescribed prescription medications. He denies any past/current alcohol abuse issues. He reports that he has adequate psychosocial support from his family which he will be able to rely on before and following spinal stimulator implant surgery. He is realistic about his expectations of pain relief from the spinal cord stimulator. There are no apparent psychological factors that would interfere or be problematic as far as implanting a spinal cord stimulator . Priti Yang PsyD, LP Psychologist Healthcare Contacts Have questions? Call [phone] Need care after hours or on weekends? Call [phone] Need to make an appointment? Call [phone] Prefer to do all of this online? Visit [email or web address] For other helpful phone numbers visit [email or web address] OW AND DOOR INSTALLER documented in this encounter Plan of Treatment Scheduled Referrals Name Type Priority Associated Diagnoses [facility] (ALICIA, Referral Routine O rdered: 11/18/2015 LULU) [place] [facility] [place][id number] documented as of this encounter Visit Diagnoses Diagnosis Somatic symptom disorder (HRC) - Primary documented in this encounter Care Teams Impregnator Helper Relationship Specialty Start Date End Date Loretta Mcmahan MD PCP - General Family Practice 10/21/1402/10 documented as of this encounter
--- OUTSIDE RECORDS SUMMARY | 2022-06-20 02:22 | XMS_ITS | Encounter Summary ---
:1945 Author Organization [facility] Address [address] [place] [address] Care Team Providers Name Role Phone Loretta Mcmahan MD Primary Care Provider Unavailable Reason for Referral Procedure/Equipment (Routine) - Incomplete Specialty Diagnoses / Procedures Referred By Contact Refer red To Contact Diagnoses Back pain, 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 Garry Neff MD Procedures MR THORACIC SPINE WITH/WITHOUT CONTRAST [address] [place] [address] Referral ID Status Reason Start Date Expiration Date Visits V isits Requested Authorized [id number] Incomplete 12/21/2015 1 1 L INTERN Reason for Visit Reason Comments QUESTIONS, GENERAL Encounter Details Date Type Department Care Team Description 12/21/2015 Telephone Specialty Center 401 Garry Neff, QUESTIONS, GENERAL NeuroSurgery 401 [facility]. [address] [place] [address] [place] [address] [phone] (Wo rk) Social History Tobacco Use Types Packs/Day Years Used Date Smoking Tobacco: Never Smokeless Tobacco: Never Alcohol Use Standard Drinks/Week Comments No 0 (1 standard drink = 0.6 oz pure alcoho l) Sex Assigned at Date Recorded Male 08/06/2021 5:59 PM CDT documented as of this encounter Nursing Notes Selene Johnson RN - 12/30/2015 3:40 PM CST Patient having MRI will need sedation prior verbal order placed and sent pharmacy of choice.Selene Johnson RN 12/30/2015, 3:41 PM Also left message explaining the prior to patient having CTR and need for lift during this time, he needs to be seen for evaluation and letter to be completed for the lift to be covered by insurance.Selene Johnson RN 12/30/2015, 3:44 PM L INTERN Selene Johnson RN - 12/28/2015 9:[address] and did informed patient that patient needs to be NWB for 6 weeks-Dr. Neff does recommend that he work on getting a lift of some type to assist with this during the post op period. Talked with Heather and she did verbalize that they are already working on getting sometype of lift to assist with transfers. The patient would like to proceed with getting the surgery authorized, and scheduled for the L) CTR. Will have care team place case request.Selene Johnson RN 12/28/2015, 9:57 AM L INTERN Selene Johnson RN - 12/27/2015 5:00 PM CST Reviewed patients concerns with Dr. Neff and patient will need to be NWB to UE following carpal tunnel surgery, he is recommending a lift or a [id number] for assisting with transfers during postop coarse. Selene Johnson RN 12/27/2015, 5:02 PM L INTERN Selene Johnson RN - 12/21/2015 2:33 PM CST Call placed and did review patient current status-he is having increase in pain r/t the CTS is wondering about surgery and restrictions as patient is very dependent on his UE's for transfers, he is wondering if there is anything Dr. Neff would recommend for postop CTR, that may not restrict patient for transfers. This proposal writer did review alternative transfer methods-which patient and spouse are going to try and update clinic with return call. Will return call once reviewed with care team Selene Johnson RN 12/21/2015, 2:33 PM L INTERN Roderick Perez - 12/21/2015 1:46 PM CST Jeff Cullen is scheduled for 01/06/16 at 11:00am. Patient will be having procedure sometime in January. Heather is still requesting to speak to care team in regards to Carpel Tunnel and hand tremors. Please call Heather back. L INTERN Selene Johnson RN - 12/21/2015 12:09 PM CST Order placed.Selene Johnson RN 12/21/2015, 12:09 PM L INTERN Cristine Haddad PA-C - 12/21/2015 11:17 AM CST Please have pt obtain Thoracic MRI w/wo contrast prior to stimulator placement. Cristine Haddad PA-C 12/21/2015, 11:17 AM L INTERN Roderick Perez - 12/21/2015 10:28 AM CST Jeff Cullen's , Heather is calling. She stated that patient will be having pain stimulator put into his spine and is questioning if care team would like another MRI to be done before the procedure. She is also questioning if a CT will be as effective as an MRI and also stated that the patient has carpel tunnel and is having hand tremors. Please call Heather back to discuss. L INTERN documented in this encounter Plan of Treatment Not on filedocumented as of this encounter Results MR THORACIC SPINE WITH/WITHOUT CONTRAST (01/06/2016 12:11 PM LEGAL INTERN) Anatomical Region Laterality Modality Spine, T-Spine, L-Spine, C-Spine, Skeletal Magnetic Resonance Specimen (Source) Anatomical Collection Method Collection Time Re ceived Time Location / / Volume Laterality 01/06/2016 12:11 PM LEGAL INTERN Narrative 01/06/2016 1:31 PM LEGAL INTERN MR THORACIC SPINE W/WO CONT 01/06/2016 12:11 [...] distal enhancement. Garry Neff MD RAD MRI documented in this encounter Visit Diagnoses Diagnosis Back pain, chronic - Primary Backache, unspecified Paraplegia (HRC) Paraplegia 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, unspecified site Screening for nephropathy - Primary Back pain, chronic Backache, unspecified Paraplegia (HRC) Paraplegia 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, unspecified site documented in this encounter Care Teams Senior Network Systems Engineer Relationship Specialty Start Date End Date Loretta Mcmahan MD PCP - General Family Practice 10/21/1402/10 documented as of this encounter
--- OUTSIDE RECORDS SUMMARY | 2022-06-20 02:22 | XMS_ITS | Encounter Summary ---
:1945 Author Organization [facility] Address [address] [place] [address] Care Team Providers Name Role Phone Franklin Squires MD Primary Care Provider Reason for Visit Auth/Cert Specialty Diagnoses / Procedures Referred By Contact Refer red To Contact Diagnoses Neuropathic pain . Referral ID Status Reason Start Date Expiration Date Visits Requ ested Visits Authorized [id number] 1 1 Encounter Details Date Type Department Care Team Description 03/08/2016 Surgery [facility] Operating Room Zelalem Cohen, PERIPHERAL PLACEMENT OF [address] [place] [address] TRIAL [phone] [place], [place] [phone] (Wo rk) Social History Tobacco Use Types Packs/Day Years Used Date Smoking Tobacco: Never Smokeless Tobacco: Never Alcohol Use Standard Drinks/Week Comments No 0 (1 standard drink = 0.6 oz pure alcoho l) Sex Assigned at Date Recorded Male 08/06/2021 5:59 PM CDT documented as of this encounter Last Filed Vital Signs Vital Sign Reading Time Taken Comments Blood Pressure 92/61 03/08/2016 8:50 AM CDT Pulse 95 03/08/2016 8:50 AM CDT Temperature 36.4 ??C (97.6 ??F) 03/08/2016 8:50 AM CDT Respiratory Rate 16 03/08/2016 8:50 AM CDT Oxygen Saturation 98% 03/08/2016 8:50 AM CDT Inhaled Oxygen Concentration - - Weight 108.9 kg (240 lb) 03/08/2016 6:15 AM CDT Height 175.3 cm (5' 9) 03/08/2016 6:15 AM CDT Body Mass Index 35.44 03/08/2016 6:15 AM CDT documented in this encounter Discharge Instructions Discharge InstructionsLea Danielle RN - 03/08/2016 9:42 AM CDT Discharge Instructions for: Jeff Dubon Alyse Thank you for choosing [facility] as your provider. A copy of your [...] is after hours call the Careline at [phone]. [facility]: [phone] Follow Up Appointment Scheduled on 03/13/16 at [...] it. It is our goal to make [facility] your hospital of choice and want you to feel confident in recommending [facility] to your family and friends. Thank you for choosing [facility]. The nurse has reviewed the above discharge instructions with me. I understand my discharge instructions. Jeff Cullen (or Signing Teacher) Conference Producer Nurse Discharge Instructions for TRIAL PHASE Spinal Cord Stimulator Therapy Call [phone] with questions about the wound: Contact the device account maintenance representative with questions about programming the unit. [...] Hx of Spinal cord Injury, ependymoma Vendor: [facility] Surgeon: Dr. Cohen Consent: The risks and [...] 50 cm lead with 8 contacts Model [id number], SN [id number] was advanced in the subcutaneous tissue to cover the right low back at the L1 level. I then placed a second lead on the left side at the L1 level in a similar fashion. Again, a 50 cm lead with 8 con tacts Model [id number]-[id number], SN [id number] was advanced in the subcutaneous tissue to cover the left low back at the L1 level. I then placed a third lead in a similar fashion but at the right side at the L5 level. Again, a 50 cm lead with 8 contacts Model [id number], SN [id number] was advanced in the subcutaneous tissue to coverthe right low back at the L5 level. I then placed a 4th lead in a similar fashion but at the left side at the L5 level. Again, a 50 cm lead with 8 contacts Model [id number], SN [id number] was advanced inthe subcutaneous tissue to cover [...] F/u in one wk in clinic 8. [facility] account maintenance representative will call you daily Dr. Benito Peterson, pain fellow participated in the procedure and care of this patient under my direct supervision. Dr. Cohen Zelalem Cohen MD - 03/08/2016 8:51 AM CDT [facility] Operative Note Surgery Date: 03/08/2016 Surgeon(s) and [...] 8:43 AM CDT Fluoroscopy provided by a pathology technologist. Exact fluoroscopy time is documented in end of exam information in EPIC Zelalem Cohen DO RAD GD INR/PROTIME (03/08/2016 6:31 AM CDT) P athologist Signature Protime 13.0 12.0 - 14.5 [facility] INR 1.0 0.9 - 1.1 [facility] Specimen Anatomical Collection Method Collection Time Receive d Time (Source) Location / / Volume Laterality 03/08/2016 6:31 AM 6 6:38 CDT AM CDT Narrative [facility] - 03/08/2016 7:01 AM CD T Performed at [facility] , [address] [place] [id number] Zelalem Cohen DO LAB_1 Performing Organization Address City/State/ZIP Code Phon e Number [address] [address] documented in this encounter Visit Diagnoses Diagnosis Midline low back pain without sciatica - Primary Neuropathic pain Neuralgia, neuritis, and radiculitis, un specified documented in this encounter Administered Medications Inactive [...] (COMPLETED) 0645 (Given - Provider: Lenore Garcia, VALERIE) 500 mg, Intravenous, ONCE (NON-SCHEDULED ), 1 dose, Starting Catalina 03/08/16 at 0556, Until Discontinued, Pre-op Continuous Medication Order 03/06/2016 03/07/2016 03/08/2016 lactated ringers infusion (CANCELED) 0615 (Started - Provider: Lenore Garcia RN)0732 (Canceled Entry - Provider: Delisa Hill APRN, VIRTUALIZATION ENGINEER)0848 (Infused - Provider: Delisa Hill APRN, VIRTUALIZATION ENGINEER) at 30 mL/hr, Intravenous, CONTINUOUS, St arting Catalina 03/08/16 at 0615, Until Discontinued, Pre-op documented in this encounter Care Teams Aoc Director Combat Operations Officer Relationship Specialty Start Date End Date Franklin Squires MD PCP - General Family Practice 03/08/[address] [place] [address] documented as of this encounter
--- OUTSIDE RECORDS SUMMARY | 2022-06-20 02:22 | XMS_ITS | Encounter Summary ---
:1945 [address] [facility] Address [address], [place] [address] Care Team Providers Name Role Phone Franklin Squires MD Primary Care Provider Encounter Details Date Type Department Care Team Description 01/06/2016 Correspondence [facility] Radiology, MRI SAFETY SHEET [address] [place] [address] Provider [place] [address] Social History Tobacco Use Types Packs/Day Years [...] on filedocumented in this encounter Care Teams Gastroenterology Technician Relationship Specialty Start Date End Date Franklin Squires MD PCP - General Family Practice 03/08/[address] [place], [place] [address]LES Wong [address] documented as of this encounter
--- OUTSIDE RECORDS SUMMARY | 2022-06-20 02:22 | XMS_ITS | Encounter Summary ---
:1945 Author Organization [facility] Address [address], [place] [address] Care Team Providers Name Role Phone Loretta Mcmahan MD Primary Care Provider Unavailable Reason for Visit Reason Comments Other Encounter Details Date Type Department Care Team Description 01/26/2016 Telephone Specialty Center 401 Zelalem Cohen, DO Other Interventional Pain Management [address] [place] [address] [place] [address] [phone] Social History Tobacco Use Types Packs/Day Years Used Date Smoking Tobacco: Never Smokeless Tobacco: Never Alcohol Use Standard Drinks/Week Comments No 0 (1 standard drink = 0.6 oz pure alcoho l) Sex Assigned at Date Recorded Male 08/06/2021 5:59 PM CDT documented as of this encounter Nursing Notes Mireya Gillette RN - 01/27/2016 11:34 AM CDT Patient rescheduled March 08 at [facility]. Mireya Gillette RN Mireya Gillette RN - 01/26/2016 4:31 PM CDT Patient scheduled for SCS Trial at [facility] 02-09-16, d/t paraplegia patient needs to scheduled at [facility]. Legal Billing Analyst: Please contact patient to reschedule at [facility].. Mireya Gillette RN documented in this encounter Plan of Treatment Not on filedocumented as of this encounter Visit Diagnoses Not on filedocumented in this encounter Care Teams Acidizer Relationship Specialty Start Date End Date Loretta Mcmahan MD PCP - General Family Practice 10/21/1402/10 documented as of this encounter
--- OUTSIDE RECORDS SUMMARY | 2022-06-20 02:22 | XMS_ITS | Encounter Summary ---
:1945 Author Organization [employer] Address [address], [place] [address] Care Team Providers Name Role Phone Loretta Mcmahan MD Primary Care Provider Unavailable Reason for Referral Therapies (Routine) - Closed Specialty Diagnoses / Procedures Referred By Contact Refer red To Contact Jodi Aguila PA- C [address] [place] [address] Referral ID Status Reason Start Date Expiration Date Visits Requ ested Visits Authorized [id number] Closed 02/09/2016 04/09/2016 1 1 Scheduling Instructions Your provider has recommended an appoint ment with a [facility] Physical Therapist. Please stop at the clinic check out desk for assistance with scheduling or choose from one of these convenient locations t o call and schedule your PT appointment: Outpatient PT at [facility] , Outpatient PT at [facility] [phone], Outpatient PT at [facility], located near [address] [place] [address] . Reason for Visit Reason Comments Revisit F/u Encounter Details Date Type Department Care Team Description 02/09/2016 Office Visit [facility] Jodi Aguila Bila teral carpal tunnel syndrome (Primary Dx); 401 NeuroSurgery [facility] Back pain, chronic [address] [place] [address] [place], [place] [phone] Social History Tobacco Use Types Packs/Day Years Used Date Smoking Tobacco: Never Smokeless Tobacco: Never Alcohol Use Standard Drinks/Week Comments No 0 (1 standard drink = 0.6 oz pure alcoho l) Sex Assigned at Date Recorded Male 08/06/2021 5:59 PM CDT documented as of this encounter Last Filed Vital Signs Vital Sign Reading Time Taken Comments Blood Pressure 113/65 02/09/2016 10:39 AM CDT Pulse 85 02/09/2016 10:39 AM CDT Temperature - - Respiratory Rate 18 02/09/2016 10:39 AM CDT Oxygen Saturation - - Inhaled Oxygen Concentration - - Weight - - Height - - Body Mass Index - - documented in this encounter Patient Instructions Patient InstructionsSri Russo RN - 02/09/2016 11:03 AM CDT Neurosurgery/Spine Clinic Patient Instructions Call when you would like to schedule left carpel tunnel release Will talk to Dr. Neff / Dr. Cohen about MRI compatible DCS Physical therapy lumbar conditioning and massage., Follow up with Dr. Garry Neff via phone. If tests were ordered, they will be [...] understanding. Please call the Neurosurgery/Spine Clinic at [phone] option #3 with any further questions or concerns. Thank you for coming to see us today. We are your partner. documented in this encounter Progress Notes Jodi Aguila PA-C - 02/09/2016 1:25 PM CDT Neurosurgery Clinic Follow Up Note Chief Complaint: discuss reason for Kisha lift, carpal tunnel syndrome Jeff is a pleasant 70 y.o. male who presents today for follow up visit on carpal tunnel syndrome. 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 Prior to this surgery, he had resection x 2 and radiation. He had paraplegia prior to surgery with neurogenic bowel/bladder with indwelling catheter and colostomy. He remains insensate in the LEs with chronic light tingling on anterior thighs. He had left > right hand numbness. 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 Mild to moderate left C5 radiculopathy. Severe lesion of right median nerve at level of wrist. The left hand numbness is worsening. He wears wrist splints which partially reduce symptoms. He has numbness in right but no as bad. Affects first 3 digits. Also getting shooting painfrom wrist into hand and into forearm on the left. Has not personally noted weakness. We recommend release of the left first. He will be unable to transfer post-op, so request for Kisha lift was made. Jeff has been suffering from back pain, which is becoming more severe. It is difficult because he isinsenate in that area, but he thinks it is worse on the left. Worsens with bending/twisting activities. Initially left L4-L5, L5-S1 facet blocks helped, but then L5-S1 RFA worsened pain. He has been started on oxycontin and had to go to the ER last night. The back pain has really made the transferringmore difficult and he is not managing well at home. He has a DCS trial with Dr. Cohen on 03/08. 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 Shelley.H/o coumadin use with IVC filter Physical Examination: BP 113/65 mmHg Pulse 85 Resp 18 General: in no acute distress. Alert and oriented x 3 Bilateral thenar atrophy noted. Tinel's negative at the wrist. 5/5 deltoids, 5/5 triceps, 5/5 biceps, 5/5 wrist extensors, 5/5 wrist flexors, 5/5 interossei, 5/5 strip tank tender, 4+/5 BL abductor hallucis brevis. Psych: appropriate affect and mood Paraplegic, in wheelchair Imaging Studies: MRI Thoracic: Again seen are postoperative changes in the upper thoracic posterior elements from prior ependymoma resection. No recurrent tumor is seen. Stable posterior adherence of the atrophic cord through the surgical bed. Stable appearance of the mid and lower thoracic cord including the mildly expansile signal changes in the distal cord and conus medullaris. Stable atrophic/flattened mid to lower thoracic cord from T5 through T10. This could be due to cord atrophy or possibly some type of anterior loculatedCSF collection within the anterior central canal. This is all stable. No new distal enhancement Assessment 70 yo male s/p resection of thoracic ependymoma, post-op meningitis, paraplegia. Low back pain related to facet arthropathy EMG shows bilateral severe carpal tunnel syndrome, left worse than right Plan Thoracic MRI stable, no repeat needed for 2 years. Discussed that if he has DCS placement, most systems are not MRI compatible. Will check if avolution system would allow him to have thoracic MRIs if needed, and if so he should have the trial done with this system. We recommend bilateral median nerve decompression, first with the left. We discussed goals and risks. Goal is to preserve nerve function and improve sensation. Risk is infection, hematoma, injury to nerve, failure to relieve symptoms. Typically outpatient procedure under local. The issue is he will be very limited with his hand for 6-8 weeks after surgery and will need a Kisha lift to transfer. It isalso getting to the point with his low back that he needs a lift, so we will request lifetime approval as I anticipate he will continue to have some level of low back pain chronically.y Follow up at the time of carpal tunnel releaase. Jeff verbalizes understanding and states no further questions at this time. The plan of care was developed in conjunction with Dr Neff. Patient was instructed to call if symptoms change, worsen, or if questions arise. oJdi Aguila PA-C Neurosurgery Total time spent with the patient was 15 minutes, of which over 50% was spent on counseling and coordination of care. Counseling includes discussion of imaging, prognosis and various surgical and non-surgical treatment options and associated risks. documented in this encounter Plan of Treatment Scheduled Referrals Name Type Priority Associated Diagnoses Order S chedule PHYSICAL THERAPY Referral Routine Ordered: documented as of this encounter Visit Diagnoses Diagnosis Bilateral carpal tunnel syndrome - Prima ry Carpal tunnel syndrome Back pain, chronic Backache, unspecified documented in this encounter Care Teams Head Of Training And Development Relationship Specialty Start Date End Date Loretta Mcmahan MD PCP - General Family Practice 10/21/1402/10 documented as of this encounter
--- OUTSIDE RECORDS SUMMARY | 2022-06-20 02:22 | XMS_ITS | Encounter Summary ---
:1945 Author Organization [facility] Address [address], [place] [address] Care Team Providers Name Role Phone Loretta Mcmahan MD Primary Care Provider Unavailable Reason for Visit Reason Comments Refill Encounter Details Date Type Department Care Team Description 09/02/2015 Refill [facility] 401 Zelalem Cohen, Refill Interventional Pain Management [address] [place] [address] [place] [address] [phone] Social History Tobacco Use Types Packs/Day Years Used Date Smoking Tobacco: Never Smokeless Tobacco: Never Alcohol Use Standard Drinks/Week Comments No 0 (1 standard drink = 0.6 oz pure alcoho l) Sex Assigned at Date Recorded Male 08/06/2021 5:59 PM CDT documented as of this encounter Nursing Notes Paulina Kumari RN - 09/02/2015 9:07 AM CDT Medication refilled per physician orders. Paulina Kumari, RN documented in this encounter Plan of Treatment Not on filedocumented as of this encounter Visit Diagnoses Not on filedocumented in this encounter Care Teams Dinkey Brakeman Relationship Specialty Start Date End Date Loretta Mcmahan MD PCP - General Family Practice 10/21/1402/10 documented as of this encounter
--- OUTSIDE RECORDS SUMMARY | 2022-06-20 02:22 | XMS_ITS | Encounter Summary ---
:1945 Author Organization [employer] Address [address] [address] Care Team Providers Name Role Phone Franklin Squires MD Primary Care Provider Reason for Visit Reason Comments Revisit SCS trial lead removal Encounter Details Date Type Department Care Team Description 03/13/2016 Office Visit Specialty Center 401 Neur opathic pain (Primary Dx); Interventional Pain Central pain syndrome Management [address] [place] [address] Social History Tobacco Use Types Packs/Day Years Used Date Smoking Tobacco: Never Smokeless Tobacco: Never Alcohol Use Standard Drinks/Week Comments No 0 (1 standard drink = 0.6 oz pure alcoho l) Sex Assigned at Date Recorded Male 08/06/2021 5:59 PM CDT documented as of this encounter Progress Notes Zelalem Cohen MD - 03/13/2016 3:20 PM CDT Pain clinic follow up visit: Subjective: s/p regional stim, no Se, No f/c/s 90% relief. Ease of all trunk mobility in w/c. Wants the implant. No hx of low back surgery. Objective: Gen: nad, a/o Mood/affect good In w/c, Skin c/d/i Removed lead, see RN note Assessment: 1. S/p peripheral stimulator trial 2. SCI 3. Neuropathic pain Plan of Care: 1. I discussed with the pt the diagnosis, pathology and overall treatment plan. I answered any questions the pt had. 2. Removed leads 3. Talked with dr. Neff, prefers interventional pain team to implant 4. F/u with pcp, taper all opioids, not indicated PA for implant. Zelalem Cohen MD 03/13/2016, 3:21 PM documented in this encounter Nursing Notes Charles Zapata RN - 03/13/2016 2:30 PM CDT Pt comes into clinic today for SCS trial leads removal post 03/08/16 Procedure: Peripheral StimulatorTrial, [address] Cohen accompanied his . Pt states he felt the SCS trial was successful and reports paresthesia over bilateral low back rating 90% pain decrease. Pt states he has noticed impr ovement with his mobility, is able to reach, bend, twist with far less pain vs prior to SCS trial would have extreme pain with these movements. Pt also reports of improved sleep with SCS trial. Please also see Dr. Coehn's notes for this visit. Hand Alterations Seamstress removed old back dressing, removed steri-strips, cleaned with chloraprep, removed sutures, and 4 peripheral SCS trial leads with tips intact. Applied slight pressure and placed 4 new band aids. Pt tolerated well and was instructed okay to shower but avoid soaking for the next week and to pat dry. Pt and his state they understand and have no further questions for RN. documented in this encounter Plan of Treatment Not on filedocumented as of this encounter Visit Diagnoses Diagnosis Neuropathic pain - Primary Neuralgia, neuritis, and radiculitis, un specified Central pain syndrome documented in this encounter Care Teams Tavern Operator Relationship Specialty Start Date End Date Franklin Squires MD PCP - General Family Practice 03/08/16 [facility] [place] [address] documented as of this encounter
--- OUTSIDE RECORDS SUMMARY | 2022-06-20 02:22 | XMS_ITS | Encounter Summary ---
:1945 Author Organization [facility] Address [address] [address] Care Team Providers Name Role Phone Franklin Squires MD Primary Care Provider Reason for Visit Reason Comments Medication Questions Encounter Details Date Type Department Care Team Description 02/03/2016 Telephone Specialty Center 401 Zelalem Cohen edication Questions Interventional Pain L, DO Management [address] [place] [phone] Social History Tobacco Use Types Packs/Day Years Used Date Smoking Tobacco: Never Smokeless Tobacco: Never Alcohol Use Standard Drinks/Week Comments No 0 (1 standard drink = 0.6 oz pure alcoho l) Sex Assigned at Date Recorded Male 08/06/2021 5:59 PM CDT documented as of this encounter Nursing Notes Mary Waterman RN - 02/07/2016 3:23 PM CDT Senior Abap Developer updated patient on refill status. Senior Abap Developer sent rx over to compounding pharmacy. Patient verbalizes understanding of below provider note and does not have any additional questions or concerns at this time. Mary Waterman RN 02/07/2016, 3:26 PM Zelalem Cohen MD - 02/07/2016 3:20 PM CDT Not at this time Dr. Benito Cohen Mary Waterman RN - 02/07/2016 2:20 PM CDT , Patient wondering (per note below): Patient states he does get some relief from compound cream, asking if there's any other ingrediant's that can be added that may make more effective. Please advise. aMry Waterman RN 02/07/2016, 2:21 PM Zelalem Cohen MD - 02/07/2016 1:11 PM CDT This is fine for compounded cream as noted [address] Benito Cohen Mireya Gillette RN - 02/07/2016 10:37 AM CDT Per patient current compound cream formula: lamotrigne 2.5%, lidocaine 1.5%, prilocaine 1.5%, verapamil HCL 5% Spoke to [facility] pharmacist Trudi, states they are able to fill compound cream. Dr. Cohen Patient states he does get some relief from compound cream, asking if there's any other ingrediant'sthat can be added that may make more effective. Mireya Gillette RN Tye Sanchez - 02/06/2016 3:19 PM CDT Pt's calling in stating she spoke with [facility] regarding her husbands compounding cream. The pharmacy stated they did not have the lamotrigne powder, wondering if there was something they could use instead. Mireya Gillette RN - 02/03/2016 11:23 AM CDT Provider to review and approve if agrees, last filled 11-02-14, Due [facility] no longer in business Spoke to patient, informed now using [facility], states he will call there first and make sure they take his insurance. Patient states he will call back for refill once verified. Generic Medication (COMPOUNDED CREAM) 250 g 6 11/02/2014 Sig : Apply 1-2 grams to the lower back TID prn. Ketamine 10%, boclofen 2%, gabapentin 6%, verapamil 6%. Apply to low back TID prn Per 09-14-15 OV Assessment: 1. Chronic back pain 2. SCI [...] will call pt after discussion with neurosurgery Iman Moeller - 02/03/2016 10:24 AM CDT Pt's , Heather called in regards to Generic Medication (COMPOUNDED CREAM) medication -- pt's Pharmacy is no longer able to refill medication. Pt would like to know if provider or nurse knows where she can get pt's cream refilled. Please adviseUgo Valerio documented in this encounter Plan of Treatment Not on filedocumented as of this encounter Visit Diagnoses Not on filedocumented in this encounter Care Teams Data Security Coordinator Relationship Specialty Start Date End Date Franklin Squires MD PCP - General Family Practice 03/08/16 [facility] State [facility] [place] [address] documented as of this encounter
--- OUTSIDE RECORDS SUMMARY | 2022-06-20 02:22 | XMS_ITS | Encounter Summary ---
:1945 Author Organization [employer] Address [address] [address] Care Team Providers Name Role Phone Loretta Mcmahan MD Primary Care Provider Unavailable Reason for Visit Reason Comments QUESTIONS, GENERAL Encounter Details Date Type Department Care Team Description 12/21/2015 Telephone Specialty Center 401 Zelalem Cohen , QUESTIONS, GENERAL Interventional Pain DO Management [address] [place], [place] [address] Social History Tobacco Use Types Packs/Day Years Used Date Smoking Tobacco: Never Smokeless Tobacco: Never Alcohol Use Standard Drinks/Week Comments No 0 (1 standard drink = 0.6 oz pure alcoho l) Sex Assigned at Date Recorded Male 08/06/2021 5:59 PM CDT documented as of this encounter Nursing Notes Mary Waterman RN - 12/21/2015 10:50 AM CST [employer] Bi Administrator stated that SCS is NOT MRI friendly. Patient's states that patient does get MRIs for thoracic tumors and will then change MRI schedule to get done when SCS trail is done or just before. Mary Waterman RN 12/21/2015, 10:56 AM Iman Bose - 12/21/2015 10:43 AM CST Pt's , Heather called with questions in regards to pt's procedure on 02/09/16. Would like to know if stimulator will be permanent or will if it would eventually be removed. Pt is needed to get MRI's and wondering if they should be done beforehand. Please advise. Iman GHT CAR REPAIRER documented in this encounter Plan of Treatment Not on filedocumented as of this encounter Visit Diagnoses Not on filedocumented in this encounter Care Teams Laser Printing Operator Relationship Specialty Start Date End Date Loretta Mcmahan MD PCP - General Family Practice 10/21/1402/10 documented as of this encounter
--- OUTSIDE RECORDS SUMMARY | 2022-06-20 02:22 | XMS_ITS | Encounter Summary ---
:1945 Author Organization [employer] Address [address] [address] Care Team Providers Name Role Phone Loretta Mcmahan MD Primary Care Provider Unavailable Reason for Visit Reason Comments APPOINTMENT REQUEST SCS procedure Encounter Details Date Type Department Care Team Description 12/06/2015 Telephone Specialty Center 401 Zelalem Cohen PPOINTMENT REQUEST Interventional Pain L, DO (SCS procedure) Management [address] [place], [place] [address] Social History Tobacco Use Types Packs/Day Years Used Date Smoking Tobacco: Never Smokeless Tobacco: Never Alcohol Use Standard Drinks/Week Comments No 0 (1 standard drink = 0.6 oz pure alcoho l) Sex Assigned at Date Recorded Male 08/06/2021 5:59 PM CDT documented as of this encounter Nursing Notes Glendy Davidson - 12/14/2015 11:50 AM CST Scheduled 02-09-16 12:30 Vicki at [facility] Kathleen Carreon - 12/06/2015 3:11 PM CST Only space to schedule pt as of now is 02/08 in the afternoon. Need clearance from Archana at [address] [place] [address] late in OR. Per Donnie, Archana will not be back until 3:30 today (12/06). [facility] Sapphire Shelby - 12/06/2015 2:52 PM CST Pt would like to schedule his SCS procedure. Please return call. [facility] documented in this encounter Plan of Treatment Not on filedocumented as of this encounter Visit Diagnoses Not on filedocumented in this encounter Care Teams Regional Coordinator Relationship Specialty Start Date End Date Loretta Mcmahan MD PCP - General Family Practice 10/21/1402/10 documented as of this encounter
--- OUTSIDE RECORDS SUMMARY | 2022-06-20 02:23 | XMS_ITS | Encounter Summary ---
:1945 Author Organization [facility] Address [address] [address] Care Team Providers Name Role Phone Loretta Mcmahan MD Primary Care Provider Unavailable Reason for Visit Reason Comments Refill Encounter Details Date Type Department Care Team Description 04/09/2015 Refill Specialty Center 401 Zelalem Cohen, DO Refill Interventional Pain Management [address] [place] [address] [place] [address] [phone] Social History Tobacco Use Types Packs/Day Years Used Date Smoking Tobacco: Never Smokeless Tobacco: Never Alcohol Use Standard Drinks/Week Comments No 0 (1 standard drink = 0.6 oz pure alcoho l) Sex Assigned at Date Recorded Male 08/06/2021 5:59 PM CDT documented as of this encounter Nursing Notes Sri Marroquin RN - 04/11/2015 4:24 PM CDT Gabapentin 400mg refilled per Patient informed of refill, verified pharmacy. Had no further questions at this time. Sri Briscoe RN 04/11/2015. 4:25 PM. Zelalem Cohen MD - 04/11/2015 2:15 PM CDT Fine for neurontin as noted Dr. Benito Cohen Sri Marroquin RN - 04/11/2015 1:03 PM CDT Last refill 11/16/14 for 90 tabs. Last office visit 01/18/15 documented in this encounter Plan of Treatment Not on filedocumented as of this encounter Visit Diagnoses Not on filedocumented in this encounter Care Teams Tetryl Boiling Tub Operator Relationship Specialty Start Date End Date Loretta Mcmahan MD PCP - General Family Practice 10/21/1402/10 documented as of this encounter
--- OUTSIDE RECORDS SUMMARY | 2022-06-20 02:23 | XMS_ITS | Encounter Summary ---
:1945 Author Organization [employer] Address [address] [place] [address] Care Team Providers Name Role Phone Loretta Mcmahan MD Primary Care Provider Unavailable Reason for Visit Reason Comments QUESTIONS, GENERAL Encounter Details Date Type Department Care Team Description 03/21/2015 Telephone Specialty Center 401 Garry Neff X, QUESTIONS, GENERAL NeuroSurgery [address] [facility]. [address] [place] [address] [place] [address] [phone] (Wo rk) Social History Tobacco Use Types Packs/Day Years Used Date Smoking Tobacco: Never Smokeless Tobacco: Never Alcohol Use Standard Drinks/Week Comments No 0 (1 standard drink = 0.6 oz pure alcoho l) Sex Assigned at Date Recorded Male 08/06/2021 5:59 PM CDT documented as of this encounter Nursing Notes Govind Dwyer - 03/23/2015 3:24 PM CDT Demographic, order, notes and images faxed to [facility] ATT: idalmis [place]. [phone]. Patient is aware procedure will need PA and [facility] will be contacting patient. Cristy Rodrigues RN - 03/23/2015 1:31 PM CDT Spoke with pt, he agrees with plan. Order placed, will forward to Vlad to assist pt with scheduling rhizotomy at [facility] with Dr. Candace Rodrigues RN 03/23/2015, 1:32 PM Jodi Aguila PA-C - 03/23/2015 12:50 PM CDT Refer for bilateral L5-S1 radiofrequency ablation with Oswald Maria. Thanks Selene Johnson RN - 03/21/2015 12:52 PM CDT Call placed and talked to patient-he stated that he did receive great relief after the injection however now the pain has returned wondering what the plan will be, this promotion writer did explain that I will review with care team and return call on the plan, he did verbalize understanding.Selene Johnson RN 03/21/2015, 1:02 PM Beth Read - 03/21/2015 9:56 AM CDT Patients is calling stating that she is giving an update after injection, states there was relief for the first few days and then back to the way it was. 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
--- OUTSIDE RECORDS SUMMARY | 2022-06-20 02:23 | XMS_ITS | Encounter Summary ---
:1945 Author Organization [facility] Address [address], [place] [address] Care Team Providers Name Role Phone Loretta Mcmahan MD Primary Care Provider Unavailable Reason for Visit Reason Comments Medication Questions Encounter Details Date Type Department Care Team Description 03/28/2015 Telephone Specialty Center 401 Deacon Dickinson edication Questions Interventional Pain TMD Management [address] [place] [phone] Social History Tobacco Use Types Packs/Day Years Used Date Smoking Tobacco: Never Smokeless Tobacco: Never Alcohol Use Standard Drinks/Week Comments No 0 (1 standard drink = 0.6 oz pure alcoho l) Sex Assigned at Date Recorded Male 08/06/2021 5:59 PM CDT documented as of this encounter Nursing Notes Mireya Gillette RN - 03/30/2015 10:41 AM CDT Spoke to [facility] Pharmacist nely Ponce provider has approved M3. Ok for 6/refills. Mireya Gillette RN Zelalem Cohen MD - 03/29/2015 1:23 PM CDT Guy Cohen Mandy Montalvo - 03/29/2015 12:45 PM CDT Pharmacy calling again asking about the M3 instead of p2 as insurance does not cover p2. Please advise. Charles Zapata RN - 03/28/2015 6:[address] Cohen, okay to rx Compounded cream (M3) Lamotrigine 2.5% Lidocaine 1.5% Prilocaine 1.5% Verapamil 5%? Per [facility], the compounded cream ordered Ketamine 10%, boclofen 2%, gabapentin 6%, verapamil 6% is not covered by pt's insurance. Deacon Dickinson MD - 03/28/2015 3:57 PM CDT maryellen patient Deacon Dickinson MD Jolie Bernstein RN - 03/28/2015 11:41 AM CDT Provider, ok to use M3? Jolie Bernstein RN 03/28/2015, 11:41 AM Amira Xavier - 03/28/2015 10:52 AM CDT Katerina from [facility] with some questions about Generic Medication (COMPOUNDED CREAM) statesits not covered any more so they are wondering if it can be switched to M3. Please advise. documented in this encounter Plan of Treatment Not on filedocumented as of this encounter Visit Diagnoses Not on filedocumented in this encounter Care Teams Transfer Knitter Relationship Specialty Start Date End Date Loretta Mcmahan MD PCP - General Family Practice 10/21/1402/10 documented as of this encounter
--- OUTSIDE RECORDS SUMMARY | 2022-06-20 02:23 | XMS_ITS | Encounter Summary ---
:1945 Author Organization [facility] Address [address], [place] [address] Care Team Providers Name Role Phone Loretta Mcmahan MD Primary Care Provider Unavailable Encounter Details Date Type Department Care Team Description 05/11/2015 Telephone Specialty Center 401 Garry Neff MD NeuroSurgery [address] [place] [address] [place] [address] [phone] Social History Tobacco Use Types Packs/Day Years Used Date Smoking Tobacco: Never Smokeless Tobacco: Never Alcohol Use Standard Drinks/Week Comments No 0 (1 standard drink = 0.6 oz pure alcoho l) Sex Assigned at Date Recorded Male 08/06/2021 5:59 PM CDT documented as of this encounter Nursing Notes Selene Johnson, RN - 05/11/2015 4:25 PM CDT Valium ordered for pre MRI sedation.Selene Johnson, VALERIE 05/11/2015, 4:25 PM documented in this encounter Plan of Treatment Not on filedocumented as of this encounter Visit Diagnoses Not on filedocumented in this encounter Care Teams Rivet Driver Relationship Specialty Start Date End Date Loretta Mcmahan MD PCP - General Family Practice 10/21/1402/10 documented as of this encounter
--- OUTSIDE RECORDS SUMMARY | 2022-06-20 02:23 | XMS_ITS | Encounter Summary ---
:1945 Author Organization [facility] Address [address] [place] [address] Care Team Providers Name Role Phone Loretta Mcmahan MD Primary Care Provider Unavailable Encounter Details Date Type Department Care Team Description 04/19/2015 Orders Only External to Alfonso Carlson MD [address] [place], [place] [address] (Wo rk) Social History [...] Date/Time Associated Diagnosis Comme nts OUTSIDE IMAGING 04/19/2015 12:00 AM Resul ts for this CDT procedure are i n the results section. documented in this encounter Results OUTSIDE IMAGING (04/19/2015 12:00 AM CDT) Anatomical Region Laterality Modality Other Specimen (Source) Anatomical Location Collection Method / Collectio n Time Received Time / Laterality Volume 04/19/2015 Narrative This result has an attachment that is no t available. Garry Neff MD RAD_1 documented in this encounter Visit Diagnoses Not on filedocumented in this encounter Care Teams Master Dyer Relationship Specialty Start Date End Date Loretta Mcmahan MD PCP - General Family Practice 10/21/14 4/2 05/26 documented as of this encounter
--- OUTSIDE RECORDS SUMMARY | 2022-06-20 02:23 | XMS_ITS | Encounter Summary ---
:1945 Author Organization [facility] Address [address] [place] [address] Care Team Providers Name Role Phone Loertta Mcmahan MD Primary Care Provider Unavailable Encounter Details Date Type Department Care Team Description 05/24/2015 Orders Only External to Alfonso Carlson MD [address] [place], [place] [address] (Wo rk) Social History [...] Date/Time Associated Diagnosis Comme nts OUTSIDE IMAGING 05/24/2015 12:00 AM Resul ts for this CDT procedure are i n the results section. documented in this encounter Results OUTSIDE IMAGING (05/24/2015 12:00 AM CDT) Anatomical Region Laterality Modality Other Specimen (Source) Anatomical Location Collection Method / Collectio n Time Received Time / Laterality Volume 05/24/2015 Narrative This result has an attachment that is no t available. Garry Neff MD RAD_1 documented in this encounter Visit Diagnoses Not on filedocumented in this encounter Care Teams Reprographics Technician Relationship Specialty Start Date End Date Loretta Mcmahan MD PCP - General Family Practice 10/21/14 4/2 05/26 documented as of this encounter
--- OUTSIDE RECORDS SUMMARY | 2022-06-20 02:23 | XMS_ITS | Encounter Summary ---
:1945 Author Organization [facility] Address [address] [address] Care Team Providers Name Role Phone Loretta Mcmahan MD Primary Care Provider Unavailable Reason for Visit Reason Comments RESULTS, TEST Encounter Details Date Type Department Care Team Description 05/16/2015 Telephone Specialty Center 401 Garry Neff MD RESULTS, TEST NeuroSurgery [address] [place] [address] [place] [address] [phone] Social History Tobacco Use Types Packs/Day Years Used Date Smoking Tobacco: Never Smokeless Tobacco: Never Alcohol Use Standard Drinks/Week Comments No 0 (1 standard drink = 0.6 oz pure alcoho l) Sex Assigned at Date Recorded Male 08/06/2021 5:59 PM CDT documented as of this encounter Nursing Notes Selene Johnson RN - 05/17/2015 9:41 AM CDT Patient is rescheduled to 06-07-2015 with MRI prior. Selene Johnson RN 05/17/2015, 9:42 AM Beth Read - 05/17/2015 8:24 AM CDT Patients is calling stating that she is questioning if they should wait on the MRI and the EMG results and just schedule an appt. For all of the above. Please call . Mary Ann Robles - 05/16/2015 4:33 PM CDT Calling requesting results of EMG and MRI once complete, please advise. documented in this encounter Plan of Treatment Not on filedocumented as of this encounter Visit Diagnoses Not on filedocumented in this encounter Care Teams Individual Pension Adviser Relationship Specialty Start Date End Date Loretta Mcmahan MD PCP - General Family Practice 10/21/1402/10 documented as of this encounter
--- OUTSIDE RECORDS SUMMARY | 2022-06-20 02:23 | XMS_ITS | Encounter Summary ---
:1945 Author Organization [facility] Address [address], [place] [address] Care Team Providers Name Role Phone Loretta Mcmahan MD Primary Care Provider Unavailable Encounter Details Date Type Department Care Team Description 03/30/2015 Office Visit [facility] Loretta Mcmahan MD Paraplegia (Primary Dx); Physical Therapy Trudi Raymundo, PT [address] [place] [address] Osteoporosis; [address] [facility] Back pain, chronic [place], [place] [id number] Social History Tobacco Use Types Packs/Day Years Used Date Smoking Tobacco: Never Smokeless Tobacco: Never Alcohol Use Standard Drinks/Week Comments No 0 (1 standard drink = 0.6 oz pure alcoho l) Sex Assigned at Date Recorded Male 08/06/2021 5:59 PM CDT documented as of this encounter Progress Notes Trudi Raymundo, PT - 03/30/2015 2:11 PM CDT OUTPATIENT PHYSICAL THERAPY: SEATING/MOBILITY EVALUATION Jeff Cullen [id number] 1945 Payor: MEDICARE / Plan: MEDICARE [id number] / Product Type: Medicare / Referring Provider: Loretta Mcmahan Diagnosis: Paraplegia (344.1), Osteoporosis (733.00) Back pain (724.5) Date of Onset/Date of Surgery: 02/09/15 Certification Period: 03/30/2015 - 06/27/15 Start of Therapy: 03/30/2015 Medicare units used: including 03/30/2015 G-codes and Severity modifiers: G8978, Mobility current status: CL At least 60% but less than 80% impaired, limited or restricted and G8979, Mobility goal status, CK At least 40% but less than 60% impaired, limited or restricted Severity modifier chosen based on: clinical judgement SUBJECTIVE: MEDICAL HISTORY: History/Progression: having more low back pain at L5-S1. Will likely need a rhizotomy at this level.Has since developed an open area on the right greater tuberosity which is healing but slowly. His wound nurse is recommending pressure mapping. He has had pressure areas here in the past but the skin never broken open until now. They thought that it had happened from the mattress. After noting initialredness of the area, began treating with tegaderm. There was some foam under the tegaderm that became wrinkled at one time and they felt this also contributed to his wounds. Had a memory foam mattress.He then purchased a Temperpedic mattress. He is no longer rolling onto the right side or sleeping on the right side. His 4Blox 600 manual wheelchair has side panels as well that they have to be very careful of not rubbing on. He has tried repositioning some in the power chair that he has but tends to move to his manual wheelchair when pain settles in. He still has pain in the manual chair but seems better than in power chair. He admits he hasn't used many of the repositioning features in the chair aside form the memory position that includes tilt, recline and elevating leg rests. He spends more than a few hours in one position in his power chair on many occasions. Has tried additional positioning wedges that come with the permobile without improving his pain. Also tried towel rolled up in lumbar spine. Reporting pain of 7-8/10 upon arrival today. Recent/Planned Surgeries: colostomy placed in 10/06/12. Suprapubic catheter placed recently as well (unsure of date). Also had L1-L2 Rhizotomy. A few months ago had injection for pain that helped for about 3 days. May be having another Rhizotomy at L5-S1 at recommendation of neurosurgery. 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 Patient inquiring about alternative ways of positioning to improve function. Possibly new back. Funding source: Medicare HOME ENVIRONMENT: Patient lives with spouse/significant other in a house. Entrance: ramp. W/C Accessible Rooms: Yes COMMUNITY ADL: Transportation: van and adapted w/c lift. 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 Weight as of 03/03/15: 0 lb (0 kg). Passive ROM: Bilateral shoulder ROM to 130 degrees then painful. All other UE ROM WNL. Lacks 30 degrees extension in bilateral knees with hip flexion contractures to neutral extension. Active ROM: No active LE ROM consistent with complete spinal cord injury from spinal cord tumor. STRENGTH: UE strength is WNL currently, no pain. Has a history of right rotator cuff tendonitis and left elbow bursitis and thus preservation of his shoulders is imperative. No strength in LE's BALANCE: Special Tests: Systemic - seated balance is poor. Requires upper extremity support and requires assist for transfers due to poor sitting trunk control. Sliding board is used and assists. ALIGNMENT: forward head posture, increased kyphosis. Scapular muscle atrophy interscapularly at siteof his tumor that was removed. He has increased abdominal girth. Left shoulder sits slightly lower than the right. Appears to have more weight through the left IT. Slightly scooted to the right in his chair. Noted to have decreased support under distal thighs and cushion is pushed back in his current chair (has migrated) When going into memory position, patient uses recline, tilt and elevating leg rest position. There is no pressure on the right greater trochanter. MUSCLE TONE: LE's flaccid today but has issues with spasticity and tone at times. Has limited trunk control with noted trunk spasticity. SENSATION: lacks total sensation from mid chest and below History of Pressure sores: yes, history of right greater trochanter pressure sore. Heel ulcerations. Current pressure sores: yes, open area on the right greater trochanter EDEMA: noted edematous LE's with pitting edema noted. COGNITIVE / VISUAL STATUS: Memory Skills: intact Problem Solving: intact Judgment: intact Attn/Concentration: intact Vision: impaired, wears corrective lenses Hearing: intact ADL STATUS: Dressing: assist for lower body dressing. Utilizes his power wheelchair for dressing. Bathing: assist Feeding: independent Grooming/Hygiene: independent Toileting: no longer utilizing toilet had suprapubic catheter and colostomy. Meal Prep: assist. Could use a microwave if he could elevate himself or stand. 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 Bladder management: incontinent, has indwelling suprapubic catheter. MOBILITY SKILLS: Bed to w/c transfer: moderate assist for lateral transfers with sliding board. Tends to pull himselftoward the surface he is transferring to by reaching across the seat to his arm rests of his chair or using a transfer pole at home. Relies heavily on transferring down hill. generally assists andhas to assist more with onset of fatigue. Maximal assist of 2 to transfer up hill. w/c to commode transfer: N/A Ambulation: unable Manual w/c propulsion: has limited capacity to manually propel a wheelchair due to his history of tendonitis in the right shoulder and bursitis in the left elbow. Has been propelling more up until recently when he began using his power wheelchair more. Relies heavily on upper extremities for balance with transfers. 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 PATIENTS GOALS: Seeking recommendations to relieve his pain in his back as well as to see about pressure mapping on the recommendation of his wound nurse. TREATMENT TODAY: Billy completed Therapeutic activity: ( 30 minutes): discussed in detail repositioning and use of his power functions to control pain. Patient currently tends to rely on the memory settings of his permobile which include tilt, recline and ELR so that he is in a reclined lazy boy type position. This doesn't particularly help with his pain. He has not used much for other combinations of repositioning. Discussed utilizing more tilt and less recline to avoid pressure in the back. Also encouraged trying to use less elevating leg rests to avoid excessive tension on the hamstrings. Encouraged regular repositioning throughout the day with power functions over the next few weeks. Discussed importance of using tilt to get hips centered in chair along with having Jeff push up on the chair while Heather, his , can guide hips to either side. This was demonstrated to move the hips toward the left to get him more centered in the chair. Discussed treatment plan to return to discuss progress with relationship to pain relief as well as to discuss future potential pressure mapping. Decided on focusing on position over pressure mapping during today's session a sore is healing on the eater trochanter and that it was highly unlikey that the sore was due to positioning based upon presentation in chair. It was more likely that Te sore came from positioning in bed or from transferring with possible complications with wrinkling in the dressing once his wound initially eruipted. CLINICAL CRITERIA / ALGORITHM SUMMARY: 1. Is there a mobility limitation causing an inability to safely participate in one or more MobilityRelated Activities of Daily Living in a reasonable time frame: yes. Power mobility helps jeff to reposition but he hasn't utilized features much. 2. Are there cognitive or sensory deficits (awareness/judgement/vision/etc) that limit the users ability to safely participate in one or more MRADL's? Yes. Lacks sensation below level of injury. If yes, can they be accommodated/compensated for to allow use of a mobility assistive device to participate in MRADL's? yes, regularly does skin checks. . 3. Does the user demonstrate the ability or potential ability and willingness to safely use the mobility assistive device? yes, although Jeff hasn't utilized his power functions to his full potential. . 4. Can the mobility deficit be sufficiently resolved with only the use of a cane or walker? no. 5. Does the user's environment support the use of a power wheelchair? yes. 6. If a manual wheelchair is recommended, does the user have sufficient function/abilities to use the recommended equipment? no. 7. If a POV is recommended, does the user have sufficient stability and upper extremity function to operate it? no. 8. If a power wheelchair is recommended, does the user have sufficient function/abilities to use therecommended equipment? yes. Response to treatment: Jeff reported improved pain from an 8/10 to a 5/10 with simple repositioning suggestions. and patient had understanding of recommendations. 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 He has had complications with wounds and history of bilateral femoral fractures. He is osteoporetic as well. He currently is presenting with pain in his back (very low back) with a right greater trochanteric pressure ulcer that he is being treated for. He has difficulty with mobility and requires assistance for transfers. He received his power wheelchair that he currently has about 6 months ago. Despite having training in use of the chairfor repositioning to control pain, he has not effectively managed this and continues to have pain. He has not utilized the repositioning features on his chair to his full potential and would benefit from further education to instruct in how he can use the power functions to better control his positioning and thus control his pain. He may also benefit from pressure mapping although location of the current wound does not cause suspicion for the cause to be from positioning in the chair. It is highly more likely due to transferring or positioning in bed. His assists with transfers and lacks mechanical advantage due to her own back issues and due to short stature. Pressure mapping will be considered but focus will be on repositioning using chair and transfer training. SHORT TERM and MARKETING PROGRAMS MANAGER GOALS: (within 6 sessions) 1. Pt will independently be able to manage pain through repositioning using his power functions on his power chair to allow him to stay in one position for 45 minutes at a time. 2. Patient will report pain reaching no higher than 3/10 after sustained positioning of 45 minutes and will on a scheduled basis reposition himself to avoid increase in pain. 3. Patient will safely transfer with assistance as needed without showing any increased pressure or trauma to the right greater trochanter to allow for healing to continue. PLAN: Patient to be seen 2 x monthly to address transfer training and repositioning in chair. Will consider pressure mapping for additional recommendations for positioning. Potentially look into custom back shell for his current wheelchair if pain persists and may look into alternative cushion and arm positioning to elevate the left elbow to reduce leaning to the left. Patient to be seen for up to 6 sessions. . Total treatment time: 60 minutes: 1 unit evaluation and 2 unit(s) of therapeutic activity. Trudi Raymundo, PT, License # [id number] 03/30/2015 I, the undersigned, certify that the above treatment, is medically necessary as part of my treatmentfor Jeff Cullen. If you require further information or clarification, please do not hesitate to contact this therapist at . Thank you for your prompt action with this matter. Physician Signature Date documented in this encounter Plan of Treatment Not on filedocumented as of this encounter Visit Diagnoses Diagnosis Paraplegia ([facility]C) - Primary Paraplegia Osteoporosis ([facility]C) Osteoporosis, unspecified Back pain, chronic Backache, unspecified documented in this encounter Care Teams Medicine Teacher Relationship Specialty Start Date End Date Loretta Mcmahan MD PCP - General Family Practice 10/21/1402/10 documented as of this encounter
--- OUTSIDE RECORDS SUMMARY | 2022-06-20 02:23 | XMS_ITS | Encounter Summary ---
:1945 [facility] Address [address], [place] [address] Care Team Providers Name Role Phone Loretta Mcmahan MD Primary Care Provider Unavailable Reason for Referral Procedure/Equipment (Routine) - Incomplete Specialty Diagnoses / Procedures Referred By Contact Refer red To Contact Diagnoses Ependymoma ([facility]C) Screening for nephropathy Garry Neff MD Procedures MR THORACIC SPINE WITH/WITHOUT CONTRAST [address] [place] [address] Referral ID Status Reason Start Date Expiration Date Visits V isits Requested Authorized [id number] Incomplete 04/12/2015 1 1 Encounter Details Date Type Department Care Team Description 04/12/2015 Notes/Orders Specialty Center Selene Johnson endymoma (Primary [facility] M, RN Dx) [address] [place] [address] [place], [place] [phone] (Wo rk) Social History Tobacco Use Types Packs/Day Years Used Date Smoking Tobacco: Never Smokeless Tobacco: Never Alcohol Use Standard Drinks/Week Comments No 0 (1 standard drink = 0.6 oz pure alcoho l) Sex Assigned at Date Recorded Male 08/06/2021 5:59 PM CDT documented as of this encounter Nursing Notes Selene Johnson RN - 04/12/2015 11:36 AM CDT Order placed for follow up on Thoracic tumor resection. New MRI order placed. Selene Johnson RN 04/12/2015, 11:37 AM documented in this encounter Plan of Treatment Not on filedocumented as of this encounter Results MR THORACIC SPINE WITH/WITHOUT CONTRAST (06/07/2015 12:17 PM CDT) Anatomical Region Laterality Modality Spine, T-Spine, L-Spine, C-Spine, Skeletal Magnetic Resonance Specimen (Source) Anatomical Collection Method Collection Time Re ceived Time Location / / Volume Laterality 06/07/2015 12:17 PM CDT Narrative 06/09/2015 11:37 AM CDT MR THORACIC SPINE W/WO CONT 06/07/2015 12:17 PM INDICATION: Follow-up thoracic cord tumo r resection. TECHNIQUE: Performed without IV contrast . COMPARISON: 09/07/2014. FINDINGS: Thoracic vertebral bodies are in anatomic alignment and the vertebral body heights appear within nor mal limits. Fatty replacement is again noted in the upper to mid thoracic spine bone marrow most compatible with post radiation changes. Focal verte bral body hemangioma within the posterior inferior aspect of the T9 vert ebral body. Again demonstrated are postoperative ivy nges associated with laminectomy changes spanning from the T2-T3 to T5-T6 levels status post resection of a thoracic spinal cord ependymoma. Again s een is flattening of a dorsally positioned thoracic spinal cord against the posterior dura of the thecal sac at the T2-T3 through the mid T5 leve l. Unchanged appearance of morphologic changes of the spinal cord c ephalad and caudal to the described postoperative deformity. Again seen is expansile T2 hyperintense changes within the distal thoracic cord extendin g from the T10-T11 level through the conus medullaris. This area is incre ased in size in comparison to previous examination with AP diameter me asuring 8 mm, previously measuring 5 mm. Nonexpansile segmental T2 hyperint ensity is visualized within the thoracic cord extending from the T5, T6, through T9 levels. No abnormal enhancement is identified. Again seen is heterogeneous lobulated fluid collection within the paraspinous soft t issues at the level of surgery measuring up to 1.9 cm in the AP dimensi on and 6.5 cm in the craniocaudad dimension without significant interval c hange from previous exam. Minimal multilevel degenerative thoracic spondylosis. No high-grade canal narrowing or neural foraminal stenosis i dentified. CONCLUSION: 1. ??Again demonstrated are postsurgical and posttreatment changes associated with resection and radiation of a thoracic spinal ependymoma without evidence for residual/recurrent disease. 2. ??Flattening and apparent adhesion of the thoracic spinal cord at the levels of resection with apparent adhesi on to the posterior dura of the thecal sac from the T2-T3 through mid T5 level. 3. ??Expansile T2 hyperintense changes w ithin the distal thoracic cord extending from T10 through T11 through t he conus medullaris with interval increase in size from previous examinati on demonstrating a maximum AP diameter of 8 mm, previously 5 mm. 4. ??No significant interval change in s ize of lobulated and heterogeneous fluid collection within the dorsal reema feliberto soft tissues at the level of surgery. Procedure Note Luke Romano MD - 06/09/2015Forma tting of this note might be different from the original. MR THORACIC SPINE W/WO CONT 06/07/2015 12:17 PM INDICATION: Follow-up thoracic cord tumo r resection. TECHNIQUE: Performed without IV contrast . COMPARISON: 09/07/2014. FINDINGS: Thoracic vertebral bodies are in anatomic alignment and the vertebral body heights appear within nor mal limits. Fatty replacement is again noted in the upper to mid thoracic spine bone marrow most compatible with post radiation changes. Focal verte bral body hemangioma within the posterior inferior aspect of the T9 vert ebral body. Again demonstrated are postoperative ivy nges associated with laminectomy changes spanning from the T2-T3 to T5-T6 levels status post resection of a thoracic spinal cord ependymoma. Again s een is flattening of a dorsally positioned thoracic spinal cord against the posterior dura of the thecal sac at the T2-T3 through the mid T5 leve l. Unchanged appearance of morphologic changes of the spinal cord c ephalad and caudal to the described postoperative deformity. Again seen is expansile T2 hyperintense changes within the distal thoracic cord extendin g from the T10-T11 level through the conus medullaris. This area is incre ased in size in comparison to previous examination with AP diameter me asuring 8 mm, previously measuring 5 mm. Nonexpansile segmental T2 hyperint ensity is visualized within the thoracic cord extending from the T5, T6, through T9 levels. No abnormal enhancement is identified. Again seen is heterogeneous lobulated fluid collection within the paraspinous soft t issues at the level of surgery measuring up to 1.9 cm in the AP dimensi on and 6.5 cm in the craniocaudad dimension without significant interval c hange from previous exam. Minimal multilevel degenerative thoracic spondylosis. No high-grade canal narrowing or neural foraminal stenosis i dentified. CONCLUSION: 1. Again demonstrated are postsurgical a nd posttreatment changes associated with resection and radiation of a thoracic spinal ependymoma without evidence for residual/recurrent disease. 2. Flattening and apparent adhesion of t he thoracic spinal cord at the levels of resection with apparent adhesi on to the posterior dura of the thecal sac from the T2-T3 through mid T5 level. 3. Expansile T2 hyperintense changes wit hin the distal thoracic cord extending from T10 through T11 through t he conus medullaris with interval increase in size from previous examinati on demonstrating a maximum AP diameter of 8 mm, previously 5 mm. 4. No significant interval change in siz e of lobulated and heterogeneous fluid collection within the dorsal reema feliberto soft tissues at the level of surgery. Garry Neff MD RAD MRI documented in this encounter Visit Diagnoses Diagnosis Ependymoma ([facility]C) - Primary Malignant neoplasm of brain, unspecified site Screening for nephropathy - Primary 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, unspecified site documented in this encounter Care Teams Supervisor [employer] Relationship Specialty Start Date End Date Loretta Mcmahan MD PCP - General Family Practice 10/21/1402/10 documented as of this encounter
--- OUTSIDE RECORDS SUMMARY | 2022-06-20 02:23 | XMS_ITS | Encounter Summary ---
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 [place] [address] [place] [address] [phone] (Wo rk) Social History Tobacco Use Types [...] Name Priority Date/Time Associated Diagnosis Comme nts CREATININE/GFR, WB Routine 06/07/2015 3:43 PM Ependymoma Results for this POC CDT Screening for procedure are in nephropathy the results section. MR THORACIC SPINE Routine 06/07/2015 12:17 PM Ependymoma Results for this W/WO IV CONT CDT Screening for procedure are in nephropathy the results section. documented in this encounter Results CREATININE/GFR, WB POC (06/07/2015 3:43 PM CDT) P athologist Signature Creat Whole 0.9 0.66 - [facility] Blood 1.25 mg/dl [facility] GFR, Estimated >60 >60 [facility] ml/min/1.7 [facility] 3m2 GFR, Est., If >60 >60 [facility] Black ml/min/1.7 [facility]ATOR[facility] 3m2 Specimen Anatomical Collection Method Collection Time Receive d Time (Source) Location / / Volume Laterality 06/07/2015 3:43 PM 5 3:53 CDT PM CDT Barb Shelley MD LAB_1 Performing Organization Address City/State/ZIP Code Phon e Number [facility] [phone] MR THORACIC SPINE WITH/WITHOUT CONTRAST (06/07/2015 12:17 [...] Diagnoses Diagnosis Screening for nephropathy - Primary 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, unspecified site documented in this encounter Administered Medications Inactive Administered Medications - up to 3 most recent administrations Medication Order MAR Action Action Date Dose Rate Site gadopentetate dimeglumine (aka Given 06/07/2015 12:18 PM CDT 20 mL MAGNEVIST) 469.01 MG/ML injection 20 mL 20 mL, Intravenous, ONCE (NON-SCHEDULED), Starting on Sat06/07/15 at 1218, Until Sat06/07/15 at 1218, For 1 dose documented in this encounter Care Teams Commercial Assistant Relationship Specialty Start Date End Date Loretta Mcmahan MD PCP - General Family Practice 10/21/1402/10 documented as of this encounter
--- OUTSIDE RECORDS SUMMARY | 2022-06-20 02:23 | XMS_ITS | Encounter Summary ---
:1945 Author Organization [facility] Address [address] [place] [address] Care Team Providers Name Role Phone Loretta Mcmahan MD Primary Care Provider Unavailable Encounter Details Date Type Department Care Team Description 02/09/2015 Therapy [facility] Trudi Raymundo, PT Gait abnormality (Primary Dx); Physical Therapy [address] Paraplegia; [address] [place], [place] [phone] Social History Tobacco Use Types Packs/Day Years Used Date Smoking Tobacco: Never Smokeless Tobacco: Never Alcohol Use Standard Drinks/Week Comments No 0 (1 standard drink = 0.6 oz pure alcoho l) Sex Assigned at Date Recorded Male 08/06/2021 5:59 PM CDT documented as of this encounter Progress Notes Trudi Raymundo, PT - 02/09/2015 4:15 PM CDT OUTPATIENT PHYSICAL THERAPY - DISCHARGE NOTE Jeff Cullen [id number] 1945 Payor: MEDICARE Plan: MEDICARE [id number] Product Type: Medicare Referring Provider: May Randle provider: Vitaliy Taylor (Archana) Diagnosis: Paraplegia (344.1), Osteoporosis (733.00) Date of Onset/Date of Surgery: Date of referral 09/07/13 Certification Period: 10/22/14-01/19/15 Start of Therapy: 05/04/14 Medicare units used: including 05/04/14 G-codes and Severity modifiers: G8978, Mobility current status: CL At least 60% but less than 80% impaired, limited or restricted, G8979, Mobility goal status, CL At least 60% but less than 80% impaired, limited or restricted and G8980, Mobility D/C status, CL At least 60% but less than 80% impaired, limited or restricted Severity modifier chosen based on: clinical judgement Number of visits: 1 PT visit on 10/22/2014 for a wheelchair evaluation. Pt received the equipment from [employer] Pt is now considered discharged from PT due to all goals met. Trudi Raymundo PT 02/09/2015 documented in this encounter Plan of Treatment Not on filedocumented as of this encounter Visit Diagnoses Diagnosis Gait abnormality - Primary Abnormality of gait Paraplegia (HRC) Paraplegia Osteoporosis (HRC) Osteoporosis, unspecified documented in this encounter Care Teams Human Resources Officer Relationship Specialty Start Date End Date Loretta Mcmahan MD PCP - General Family Practice 10/21/1402/10 documented as of this encounter
--- OUTSIDE RECORDS SUMMARY | 2022-06-20 02:23 | XMS_ITS | Encounter Summary ---
:1945 Author Organization [facility] Address [address] [address] Care Team Providers Name Role Phone Loretta Mcmahan MD Primary Care Provider Unavailable Reason for Visit Reason Comments QUESTIONS, GENERAL Encounter Details Date Type Department Care Team Description 05/04/2015 Telephone Specialty Center [address] QUESTIONS, GENERAL Neurology Clinic MD Hever [address] [place] [address] [place] [address] [phone] (Wo rk) Social History Tobacco Use Types Packs/Day Years Used Date Smoking Tobacco: Never Smokeless Tobacco: Never Alcohol Use Standard Drinks/Week Comments No 0 (1 standard drink = 0.6 oz pure alcoho l) Sex Assigned at Date Recorded Male 08/06/2021 5:59 PM CDT documented as of this encounter Nursing Notes Bob Negron - 05/09/2015 10:51 AM CDT CA cancelled appointment per patient request 05/09/15 ### lkj Bob Negron Bteh Cavazos RN - 05/09/2015 10:12 AM CDT CA, please cancel patient's 05/[address] Winters per patient. Patient is wondering if her even needs to follow up at all with Dr. Winters? Please advise. Beth Cavazos RN Mónica Winters MD - 05/06/2015 4:01 PM CDT If he is doing well then we can push our f/u out to the fall/winter. Mónica Winters MD Neurology Mariya Yanes RN - 05/04/2015 12:18 PM CDT Heather Aguilar has an appt.05/12/15 for a 6mo. Follow up with Dr. Vianey Winters was helping him get off Keppra after a brain bleed. He is doing very well off Keppra and is wondering if a follow up is necessary. FYI: EMG showed severe carpel tunnel seeing Dr. Neff for this. Will have Dr. Winters review Mariya Yanes RN 05/04/2015, 12:32 PM Danya Ta - 05/04/2015 10:34 AM CDT Patients is calling stating she would like to talk to Dr. Winters's nurse about an upcoming appointment he has on 05/12. Please call patient back. documented in this encounter Plan of Treatment Not on filedocumented as of this encounter Visit Diagnoses Not on filedocumented in this encounter Care Teams Runner Out Relationship Specialty Start Date End Date Loretta Mcmahan MD PCP - General Family Practice 10/21/1402/10 documented as of this encounter
--- OUTSIDE RECORDS SUMMARY | 2022-06-20 02:23 | XMS_ITS | Encounter Summary ---
:1945 Author Organization [facility] Address [address] [address] Care Team Providers Name Role Phone Loretta Mcmahan MD Primary Care Provider Unavailable Encounter Details Date Type Department Care Team Description 03/24/2015 Orders Only [facility] Elif Neff MD Neurology EEG/EMG [address] [place] [address] [place], [place] [id number] [phone] Social History Tobacco Use Types Packs/Day Years Used Date Smoking Tobacco: Never Smokeless Tobacco: Never Alcohol Use Standard Drinks/Week Comments No 0 (1 standard drink = 0.6 oz pure alcoho l) Sex Assigned at Date Recorded Male 08/06/2021 5:59 PM CDT documented as of this encounter Progress Notes Cristy Rodrigues RN - 06/23/2015 1:28 PM CDT Quick Note: Reviewed at 06/07 office visit documented in this encounter Plan of Treatment Not on filedocumented as of this encounter Procedures Procedure Name Priority Date/Time Associated Diagnosis Comme nts EMG SCAN 03/24/2015 12:00 AM Results for this CDT procedure are i n the results section . documented in this encounter Results EMG SCAN (03/24/2015 12:00 AM CDT) Specimen (Source) Anatomical Location Collection Method / Collectio n Time Received Time / Laterality Volume 03/24/2015 Narrative This result has an attachment that is no t available. Garry Neff MD [facility] documented in this encounter Visit Diagnoses Not on filedocumented in this encounter Care Teams Semiconductor Wafers Marker Relationship Specialty Start Date End Date Loretta Mcmahan MD PCP - General Family Practice 10/21/1402/10 documented as of this encounter
--- OUTSIDE RECORDS SUMMARY | 2022-06-20 02:23 | XMS_ITS | Encounter Summary ---
:1945 Author Organization [employer] Address [address] [place] [address] Care Team Providers Name Role Phone Loretta Mcmahan MD Primary Care Provider Unavailable Reason for Visit Reason Comments Revisit Encounter Details Date Type Department Care Team Description 01/18/2015 Office Visit Specialty Center [address] pendymoma (Primary Dx); Interventional Pain L, DO Left-sided low back pain without sciatic a Management [address] [place] [phone] Social History Tobacco Use Types Packs/Day Years Used Date Smoking Tobacco: Never Smokeless Tobacco: Never Alcohol Use Standard Drinks/Week Comments No 0 (1 standard drink = 0.6 oz pure alcoho l) Sex Assigned at Date Recorded Male 08/06/2021 5:59 PM CDT documented as of this encounter Last Filed Vital Signs Vital Sign Reading Time Taken Comments Blood Pressure 113/71 01/18/2015 11:36 AM CDT Pulse 86 01/18/2015 11:36 AM CDT Temperature - - Respiratory Rate - - Oxygen Saturation - - Inhaled Oxygen Concentration - - Weight - - Height - - Body Mass Index - - documented in this encounter Progress Notes Zelalem Cohen MD - 01/18/2015 2:53 PM CDT Pain clinic follow up visit: Subjective: pt had RFA done at [facility] but apparently no f/u at [facility], he is here to f/u for RFA. From what I can tell, pt had left L2/3 facet ablated. Had one week of relief, now pain has returned. He is 3 wks out from RFA. C/o left low back pain constant. Taking vicodin 8 per day, baclofen, topical cream. No f/u with Dr. Neff yet. Objective: Filed Vitals: 01/18/15 1136 BP: 113/71 Pulse: 86 Gen: nad, a/ In w/c present Insensate left low back Assessment: 1. Hx of SCI, ependymoma 2. Central mediated neuropathic pain 3. S/p left L2/3 facet RFA, done at [facility] Plan of Care: 1. Reassured pt, can still be painful 3 wks out from RFA 2. lidoderm patch prn despite being insensate, monitor skin 3. F/u with Dr. 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
--- OUTSIDE RECORDS SUMMARY | 2022-06-20 02:23 | XMS_ITS | Encounter Summary ---
:1945 Author Organization [facility] Address [address] [place] [address] Care Team Providers Name Role Phone Loretta Mcmahan MD Primary Care Provider Unavailable Encounter Details Date Type Department Care Team Description 03/08/2015 Orders Only External to Alfonso Carlson MD [address] [place], [place] [address] (Wo rk) Social History [...] Date/Time Associated Diagnosis Comme nts OUTSIDE IMAGING 03/08/2015 12:00 AM Resul ts for this CDT procedure are i n the results section. documented in this encounter Results OUTSIDE IMAGING (03/08/2015 12:00 AM CDT) Anatomical Region Laterality Modality Other Specimen (Source) Anatomical Location Collection Method / Collectio n Time Received Time / Laterality Volume 03/08/2015 Narrative This result has an attachment that is no t available. Garry Neff MD RAD_1 documented in this encounter Visit Diagnoses Not on filedocumented in this encounter Care Teams Staffing Director Relationship Specialty Start Date End Date Loretta Mcmahan MD PCP - General Family Practice 10/21/1402/10 documented as of this encounter
--- OUTSIDE RECORDS SUMMARY | 2022-06-20 02:23 | XMS_ITS | Encounter Summary ---
:1945 Author Organization [facility] Address [address] [place] [address] Care Team Providers Name Role Phone Loretta Mcmahan MD Primary Care Provider Unavailable Encounter Details Date Type Department Care Team Description 05/03/2015 Orders Only External to Alfonso Carlson MD [address] [place], [place] [address] (Wo rk) Social History [...] Date/Time Associated Diagnosis Comme nts OUTSIDE IMAGING 05/03/2015 12:00 AM Resul ts for this CDT procedure are i n the results section. documented in this encounter Results OUTSIDE IMAGING (05/03/2015 12:00 AM CDT) Anatomical Region Laterality Modality Other Specimen (Source) Anatomical Location Collection Method / Collectio n Time Received Time / Laterality Volume 05/03/2015 Narrative This result has an attachment that is no t available. Garry Neff MD RAD_1 documented in this encounter Visit Diagnoses Not on filedocumented in this encounter Care Teams Cultural Historian Relationship Specialty Start Date End Date Loretta Mcmahan MD PCP - General Family Practice 10/21/1402/10 documented as of this encounter
--- OUTSIDE RECORDS SUMMARY | 2022-06-20 02:23 | XMS_ITS | Encounter Summary ---
:1945 Author Organization [email or web address] Address [address] [address] Care Team Providers Name Role Phone Loretta Mcmahan MD Primary Care Provider Unavailable Reason for Visit Procedure/Equipment (Routine) - Closed Specialty Diagnoses / Procedures Referred By Contact Refer red To Contact Diagnoses Left arm numbness Garry Neff MD [address] [place] [address] Referral ID Status Reason Start Date Expiration Date Visits Requ ested Visits Authorized [id number] Closed 03/03/2015 06/01/2016 1 1 Encounter Details Date Type Department Care Team Description 03/24/2015 Office Visit [facility] Kelsey Thomas Cer vical radiculopathy (Primary Dx); Neurology EEG/EMG Carpal tunnel syndrome, unspecified late rality [354.0] [address] [place] [address] S [phone] [place] [address] (Wo rk) Social History Tobacco Use Types Packs/Day Years Used Date Smoking Tobacco: Never Smokeless Tobacco: Never Alcohol Use Standard Drinks/Week Comments No 0 (1 standard drink = 0.6 oz pure alcoho l) Sex Assigned at Date Recorded Male 08/06/2021 5:59 PM CDT documented as of this encounter Patient Instructions Patient InstructionsRina Kay - 03/24/2015 12:30 PM CDT The results of your EMG exam will be sent to the health care provider who ordered your EMG. Results are usually available in 2-3 days. Your referring provider will discuss the EMG results with you. If you have any site tenderness from the EMG needle exam, feel free to use an ice pack on the area as well as any over the counter pain reliever such as Tylenol or Ibuprofen. If you have any further questions or concerns, please contact us. Call for the [facility] in [place]. Call for the [facility] in [place]. documented in this encounter Progress Notes Kelsey Thomas MD - 03/24/2015 1:52 PM CDT electromyography completed Has wrist brace Prelim Dr Neff documented in this encounter Plan of Treatment Not on filedocumented as of this encounter Visit Diagnoses Diagnosis Cervical radiculopathy - Primary Brachial neuritis or radiculitis nos Carpal tunnel syndrome, unspecified late rality [354.0] documented in this encounter Care Teams Harness Builder Relationship Specialty Start Date End Date Loretta Mcmahan MD PCP - General Family Practice 10/21/1402/10 documented as of this encounter
--- OUTSIDE RECORDS SUMMARY | 2022-06-20 02:23 | XMS_ITS | Encounter Summary ---
:1945 Author Organization [facility] Address [address] [address] Care Team Providers Name Role Phone Loretta Mcmahan MD Primary Care Provider Unavailable Encounter Details Date Type Department Care Team Description 01/19/2015 Telephone Specialty Center [address], Interventional Pain Management [address] [place] [address] [place] [address] [phone] Social History Tobacco Use Types Packs/Day Years Used Date Smoking Tobacco: Never Smokeless Tobacco: Never Alcohol Use Standard Drinks/Week Comments No 0 (1 standard drink = 0.6 oz pure alcoho l) Sex Assigned at Date Recorded Male 08/06/2021 5:59 PM CDT documented as of this encounter Nursing Notes Mireya Gillette RN - 01/20/2015 4:32 PM CDT Rx. filled per provider note below. Patient informed, states he agrees to try lidocaine 5% Mireya Gillette RN Zelalem Cohen MD - 01/19/2015 2:04 PM CDT He can try the cream, Lidocaine 5%. Ugo Feliciano Mireya Gillette RN - 01/19/2015 12:[address] Cohen patient insurance will not approve Lidocaine patch w/o dx of: Postherpetic neuralgia Peripheral neuropathy Neuropathic pain Or Is there an occupational or clinical reason that other analgesics are contraindicated. Please advise if you would like to try Lidocaine cream? Mireya Gillette, RN Javy Barroso MA - 01/19/2015 11:49 AM CDT Posting Machine Operator called pt insurance [id number] requesting for PA form, pt insurance stated that they will fax PA form to clinic. Med- Lidocaine patch 5%, Pt ID#- [id number] Javy Barroso MA 01/19/2015, 11:53 AM documented in this encounter Plan of Treatment Not on filedocumented as of this encounter Visit Diagnoses Not on filedocumented in this encounter Care Teams Gas Plant Dispatcher Relationship Specialty Start Date End Date Loretta Mcmahan MD PCP - General Family Practice 10/21/1402/10 documented as of this encounter
--- OUTSIDE RECORDS SUMMARY | 2022-06-20 02:23 | XMS_ITS | Encounter Summary ---
:1945 Author Organization [facility] Address [address] [address] Care Team Providers Name Role Phone Loretta Mcmahan MD Primary Care Provider Unavailable Reason for Referral Procedure/Equipment (Routine) - Closed Specialty Diagnoses / Procedures Referred By Contact Refer red To Contact Diagnoses Left arm numbness Garry Neff MD [address] [place] [address] Referral ID Status Reason Start Date Expiration Date Visits Requ ested Visits Authorized [id number] Closed 03/03/2015 06/01/2016 1 1 Scheduling Instructions Scheduling Instructions (EMG): If an zenia ointment with [facility] was advised and you have not been contacted within 3 business days, please call [phone] at the [facility] or [phone] at the [facility] for assistance. Do not apply any lotions or oils to your skin prior to this visit. EMG appointments can take up to two hours. Reason for Visit Reason Comments Revisit F/u Encounter Details Date Type Department Care Team Description 03/03/2015 Office Visit Specialty Center Garry Neff Mid line low back pain without sciatica (Primary Dx); 401 NeuroSurgery MD Jose Left arm numbness [address] [place] [address] [place], [place] [phone] (Wo rk) Social History Tobacco Use Types Packs/Day Years Used Date Smoking Tobacco: Never Smokeless Tobacco: Never Alcohol Use Standard Drinks/Week Comments No 0 (1 standard drink = 0.6 oz pure alcoho l) Sex Assigned at Date Recorded Male 08/06/2021 5:59 PM CDT documented as of this encounter Last Filed Vital Signs Vital Sign Reading Time Taken Comments Blood Pressure 128/67 03/03/2015 2:31 PM CDT Pulse 98 03/03/2015 2:31 PM CDT Temperature - - Respiratory Rate 14 03/03/2015 2:31 PM CDT Oxygen Saturation - - Inhaled Oxygen Concentration - - Weight - - Height - - Body Mass Index - - documented in this encounter Patient Instructions Patient InstructionsSelene Johnson RN - 03/03/2015 4:04 PM CDT Neurosurgery/Spine Clinic Patient Instructions You will be scheduled for a(n) facet joint injection with Dr. Russo at [facility]. You will be scheduled for an EMG-to be scheduled with . Follow up with Dr. Garry Neff after tests are complete. If tests were ordered, they will be [...] understanding. Please call the Neurosurgery/Spine Clinic at [phone] with any further questions or concerns. documented in this encounter Progress Notes Jodi Aguila PA-C - 03/23/2015 1:49 PM CDT Neurosurgery Clinic Follow Up Note Chief Complaint: back pain Jeff is a pleasant 69 yr old male who presents today for follow up visit. 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 Prior to this surgery, he had resection x 2 and radiation. Hehad paraplegia from prior to surgery with neurogenic bowel/bladder with indwelling catheter and colostomy. He remains insensate in the LEs with chronic light tingling on anterior thighs. We have been treating Jeff for his low back pain, and left L1-L2 rhizotomy was successful in helpinghis severe upper low back pain. Now he has more pain in lumbosacral area bilaterally, he states is constant pain. Improves with icing and placing towel for lumbar support. Has not tried other interventions for this. C/o numbness in left hand, mostly nocturnal. He states it affects all digits and can be very painful. Has not noted weakness. Physical Examination: BP 128/67 Pulse 98 Resp 14 Wt ?? General: in no acute distress. Alert and oriented x 3 ?? Neurological: Sensation is intact to BL UE. Tinel's negative at wrist and elbow. Phalen's negative. ?? Psych: appropriate affect and mood ?? Musculoskeletal: Confrontational strength testing reveals 5/5 deltoids, 5/5 triceps, 5/5 biceps, 5/5 wrist extensors, 5/5 wrist flexors, 5/5 interossei, 5/5 can stacker bilaterally. Paraplegic of LE ?? Spine: cannot elicit his back pain with palpation as he is insensate. ?? No atrophy of hands. Imaging Studies: MRI Cervical: C3-C4 mild left foraminal stenosis. C4-C5 bulge without foraminal stenosis and moderate central stenosis. C5-C6 degenerative disc disease without foraminal stenosis. Lumbar MRI: L4-L5 bilateral facet arthropathy. L5-S1 degenerative disc disease and collapse. Severe left and moderate right facet arthropathy. Assessment 69 yo male s/p resection of thoracic ependymoma, post-op meningitis, paraplegia. No evidence of recurrence on recent thoracic MRI. Low back pain, good response with left L1-L2 RFA but now having more lumbosacral pain related to L5-S1 arthropathy Non-traumatic SDH, s/p right frontoparietal craniotomy for evacuation by Dr. Shelley H/o coumadin use with IVC filter LUE numbness Plan He is due for thoracic MRI in May, we are reviewing q9 months L5-S1 bilateral facet injections. If good response, we will try and get an RFA approved as this can provide lasting benefit. If no repsonse, bone spect scan to evaluate if any other levels light up. [facility], f/u after done to discuss Follow up after imaging studies. Jeff verbalizes understanding and states no further questions at this time. The plan of care was developed in conjunction with Dr Neff who also saw and evaluated the patient.Patient was instructed to call if symptoms change, worsen, or if questions arise. Jodi Smith PA-C Neurosurgery Total time spent with the patient was 25 minutes, of which over 50% was spent on counseling and coordination of care. Counseling includes discussion of imaging, prognosis and various surgical and non-surgical treatment options and associated risks. documented in this encounter Plan of Treatment Scheduled Referrals Name Type Priority Associated Diagnoses Order S chedule EMG-ELECTROMYOGRAPHY ADULT Referral Routine Left arm numbn ess Ordered: 03/03/2015 documented as of this encounter Visit Diagnoses Diagnosis Midline low back pain without sciatica - Primary Left arm numbness Disturbance of skin sensation documented in this encounter Care Teams Electrolysis Operator Relationship Specialty Start Date End Date Loretta Mcmahan MD PCP - General Family Practice 10/21/1402/10 documented as of this encounter
--- OUTSIDE RECORDS SUMMARY | 2022-06-20 02:23 | XMS_ITS | Encounter Summary ---
:1945 Author [facility] Address [address] [place] [address] Care Team Providers Name Role Phone Loretta Mcmahan MD Primary Care Provider Unavailable Encounter Details Date Type Department Care Team Description 05/31/2015 Orders Only External to Alfonso Carlson MD [address] [place], [place] [address] (Wo rk) Social History [...] Date/Time Associated Diagnosis Comme nts OUTSIDE IMAGING 05/31/2015 12:00 AM Resul ts for this CDT procedure are i n the results section. documented in this encounter Results OUTSIDE IMAGING (05/31/2015 12:00 AM CDT) Anatomical Region Laterality Modality Other Specimen (Source) Anatomical Location Collection Method / Collectio n Time Received Time / Laterality Volume 05/31/2015 Narrative This result has an attachment that is no t available. Garry Neff MD RAD_1 documented in this encounter Visit Diagnoses Not on filedocumented in this encounter Care Teams Thermodynamics Professor Relationship Specialty Start Date End Date Loretta Mcmahan MD PCP - General Family Practice 10/21/14/2 05/26 documented as of this encounter
--- OUTSIDE RECORDS SUMMARY | 2022-06-20 02:23 | XMS_ITS | Encounter Summary ---
:1945 Author Organization [facility] Address [address] [place] [address] Care Team Providers Name Role Phone Loretta Mcmahan MD Primary Care Provider Unavailable Encounter Details Date Type Department Care Team Description 03/14/2015 Orders Only External to [facility], Pr ovider Social History Tobacco Use [...] Name Priority Date/Time Associated Diagnosis Comme nts SCANNED ORDER 03/14/2015 12:00 AM Results for this CDT procedure are i n the results section . documented in this encounter Results SCANNED ORDER (03/14/2015 12:00 AM CDT) Specimen (Source) Anatomical Location Collection Method / Collectio n Time Received Time / Laterality Volume 03/14/2015 Narrative This result has an attachment that is no t available. Provider [facility] DUMMY/OTHER/AR documented in this encounter Visit Diagnoses Not on filedocumented in this encounter Care Teams Soil Conservation Aide Relationship Specialty Start Date End Date Loretta Mcmahan MD PCP - General Family Practice 10/21/1402/10 documented as of this encounter
--- OUTSIDE RECORDS SUMMARY | 2022-06-20 02:24 | XMS_ITS | Encounter Summary ---
:1945 Author Organization [facility] [address] [address] Care Team Providers Name Role Phone Loretta Mcmahan MD Primary Care Provider Unavailable Encounter Details Date Type Department Care Team Description 10/22/[address] [facility] May Randle MD [address] [place] [address] Paraplegia (Primary Dx); Physical Therapy Trudi Raymundo, PT [address] [place] [address] Osteoporosis; [address] Back pain; [place] [address] Gait abnormality [phone] Social History Tobacco Use Types Packs/Day Years Used Date Smoking Tobacco: Never Smokeless Tobacco: Never Alcohol Use Standard Drinks/Week Comments No 0 (1 standard drink = 0.6 oz pure alcoho l) Sex Assigned at Date Recorded Male 08/06/2021 5:59 PM CDT documented as of this encounter Progress Notes May Randle MD - 10/22/2014 10:36 PM CST Referring provider signature is required to continue treatment of this patient per Medicare / Medical Assistance regulations. I certify / re-certify the need for the above services furnished under this treatment plan while under my care. 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 At that point he was still ambulatory and was discharged with a Breezy manual wheelchair. He did not need customized seating because he essentially used a wheelchair for transportation. Over the ensuing years he became progressively less mobile and lost function of his lower extremities. When he needed a new chair he simply ordered another breezy and did not really have evaluation of his positioning. He also has an older power hoveraround which he uses out of the home but in [facility] essentially was in the breezy all Day other than some time spent in a recliner or in bed in [facility] . In 2010 he was hospitalized for surgical treatment of bilateral femoral condyle fractures and left tibia fracture. Ultimately we did evaluate him for both a new power chair as well as a manual chair. At that point he found a power chair too difficult to use in his home and preferred to get a new manual chair which he purchased privately as he did not think insurance would cover.as noted he has since tried a per mobile and is able to use this in the home. He did not end up with any good customized seating. Over the past couple years he has been having more difficulty with back pain has been seen in the emergency room and given Ativan and morphine. He subsequently returned and was given Vicodin. Pain is describedas in the left leg and low back.. He continued to have times when at feels as though his back crampsup. He was taught some exercises for this. He has difficulty with a manual chair secondary to his right shoulder pain and his left ulnar bursitis He has been seeing Dr. Cohen in pain medicine. He was on gabapentin which was not helpful at therapeutic dose his so he is now on Lyrica. He is also on Cymbalta He does remain on a fair amount of baclofen 40 mg 3 times a day . He has tried Dantrium which he subsequently weaned off of. Dr. Cohen now has him taking when necessary tizanadine. He states his liver function tests are followed at his primary clinic In previous pressure mapping it was found that he he did have increased pressure over the left ischial tuberosity and that he did better with a different type of cushion and thus changed to a Varolite Max cushion. He has had right shoulder pain and left elbow bursitis. He underwent PT for both conditions and has improved but is at risk for further reinjury given his need to use his upper extremities for transfers. He also had an injection in the elbow. He has a history of severe osteoporosis with bilateral femoral condyle fractures in March of 2011 requiring ORIF. He has also developed issues with hypotension. He is being treated for this taking sodium tablet forthis. Has had instances of losing his consciousness with low blood pressure in the past but it seemsbetter controlled with medication. He does have issues with spasticity in his lower legs and trunk for which he takes baclofen. Pain ismanaged by Lyrica as well as other medications. He would like to ultimately reduce his medication load if at all possible. 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 His Low back has been very sore limiting his ability, injection on 04/03/14 at L4 and L5. He was alsoto be scheduled for a rhizotomy but this was cancelled due to other medical issues. He has also been having more fluid retention in the legs and feet, not totally resolved with sleeping at night. He has been prescribed air pumps for lymphedema management which he will be getting. It should be noted that this therapist has been working with Mr. Cullen for the past few years to assist him in the proper wheelchair prescription. In October of 2013 we began pursuing power standingand reassessed him again for power standing onf 05/04/14. This process took than anticipated because we had to change DME providers. Since the re evaluation on 05/04/14, Jeff had other medical issues occur which required a re evaluation specifically to assess his positioning and current functional status along with his ROM and strength. Additionally, it has been decided by the patient due to his multiple medical complications, that they are going to forego the power standing feature. There decision was based on the amount of time that it would take to eventually get the equipment and his more urgent need to get his chair due to his medical complications. 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 He then later developed worsening lymphedema along with blood clots that had to be addressed. He is also now dealing with a urinary tract infection. He was hospitalized earlier this week due to a fever and the development of a headache. Because of his history of SDH, it was required that he have a CT scan thatwas unchanged from when he had his craniotomy. He has also developed pressure ulcerations on the bottoms of his feet due to inappropriate foot support on his current wheelchair. Another re evaluation today was required due to his hospitalizations and major surgical interventions with medical issues that could have changed his presentation making previous evaluations irrelevantif his status had changed. This evaluation was required today to determine that the chair being recommended is appropriate. Recent/Planned Surgeries: colostomy placed in 10/06/12. 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 Reason for replacement, replacing power wheelchair for added power features to accommodate his limitations in transfer and his issues with skin integrity. Funding source: Medicare funded current power wheelchair. HOME ENVIRONMENT: Patient lives with spouse/significant other in a house. Entrance: ramp. W/C Accessible Rooms: Yes COMMUNITY ADL: Transportation: van and adapted w/c lift. 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 OBJECTIVE: Estimated body mass index is 0.00 kg/(m^2) as calculated from the following: Height as of 04/15/13: 5' 9 (1.753 m). Weight as of 12/16/13: 0 lb (0 kg). Weight is currently lbs Passive ROM: Bilateral shoulder ROM to 130 [...] was removed. He has increased abdominal girth. MUSCLE TONE: LE's flaccid today but has issues with spasticity and tone at times. Has limited trunk control with noted trunk spasticity. SENSATION: lacks total sensation from mid chest and below History of Pressure sores: yes, history of right greater trochanter pressure sore. Current pressure sores: heel ulcerations due to pressure bilateral feet, right side worse than left. 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 PATIENTS GOALS: Seeking power wheelchair with capacity for power tilt and power recline and power elevating leg rests. TREATMENT TODAY: Ekaterina Cervantes completed Wheelchair management: ( 30 minutes): ruled out other forms of power mobility as well as manual wheelchair. Discussed power options and how they would benefit him functionally as well as help in stabilizing his medical condition. Measurements taken. Ensured that patient could use the power tilt, power recline and power elevatingleg rests. Ensured safe transfers. Focused on trial of power tilt and recline to ensure no shearing again. Education around the importance of having chair in tilt so that the hips remain captured by seat and back to prevent hips from sliding forward which can lead to shearing. Reviewed former home trial of the power standing chair and that that chair had an even larger foot print and thus the current chair he is trialing in clinic will fit in his home. Additionally discussed that since this current chair being trialed without the power stand feature, is lower to the ground and will allow for better visibility with driving. CLINICAL CRITERIA / ALGORITHM SUMMARY: 1. Is there a mobility limitation causing an inability to safely participate in one or more MobilityRelated Activities of Daily Living in a reasonable time frame: yes. Jeff is not ambulatory. He has limited transfer capacity requiring assistance from his at all times. He really struggles with transferring to different heights due to his lack of trunk strength. He requires assist for transfers for bathing as well. He also relies on assistance for management of his colostomy and suprapubic catheter management. He has a history of wounds from pressure and shearing and improper positioning. 2. Are there cognitive or sensory deficits (awareness/judgement/vision/etc) that limit the users ability to safely participate in one or more MRADL's? yes. If yes, can they be accommodated/compensated for to allow use of a mobility assistive device to participate in MRADL's? Has decreased sensation and does regular skin checks. Cognition is intact. 3. Does the user demonstrate the ability or potential ability and willingness to safely use the mobility assistive device? Yes. A home trial was completed. 4. Can the mobility deficit be sufficiently resolved with only the use of a cane or walker? No. Non ambulatory due to paraplegia and no motor function in his lower extremities as well as limitation in motor function in the trunk. 5. Does the user's environment support the use of a power wheelchair? Yes. Did well with home trial. 6. If a manual wheelchair is recommended, does the user have sufficient function/abilities to use the recommended equipment? No. Has a history of shoulder tendonitis and elbow bursitis with decreased trunk strength with back pain. These things limit his ability for ongoing functional self propulsion wi thout risk for further upper extremity injury and without further intensifying his back pain. 7. If a POV is recommended, does the user have sufficient stability and upper extremity function to operate it? no. 8. If a power wheelchair is recommended, does the user have sufficient function/abilities to use therecommended equipment? yes. Response to treatment: good. Patient reported feeling comfortable in the current power wheelchair and was very happy in it. ASSESSMENT: The following power wheelchair is recommended for Jeff Chowdhury for increased independencewith mobility and increased independence with MRADLs like transferring, pressure relief, management of his bowel and bladder, management of his osteoporosis (fracture prevention). 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 He has had a history of pressure sores and has severe osteoporosis. He also recently had a colostomy placed and a suprapubic catheter placed. -Permobile C300 with power elevating articulating leg rests, power tilt and power recline -thigh guides to reduce excessive hip abduction -new varolite cushion 18x20 inches. -transfer loops to help with better transfers and to decrease caregiver burden. Both the patient andhis spouse are aging and physically are having more trouble with Jeff's transfers. His spouse has had surgeries of her own that have limited her capacity to help with transfers. -a power seat elevator was discussed with the patientand his spouse but they are deferring this due to the fact that insurance will not pay for it and they don't have the funds to pay for it themselves. This feature, would, however allow for much safer transfers to various heights reducing wear and tear on patient's upper extremities. SHORT TERM GOALS: (within 1 session) 1. Pt will attend a wheelchair evaluation and appropriate equipment will be discussed for the patient to increase her/his independence with mobility and MRADLs including but not limited to cooking, dressing and grooming-MET 2. The evaluation will be completed by this therapist and sent to . A face to face visit between Dr. Randle and the patient occurred several months ago, Will likely need a new face to face.(NOT MET) BASIN CLEANER GOALS (to be met within 3 months) 1. A home assessment/trial will be completed by vendor to ensure safe maneuverability and appropriate device will be determined at that time. (MET) 2. A letter of medical necessity will be completed by this therapist and sent to or his primary care provider. This letter will then be sent to insurance for pre authorization. 3. Upon approval from insurance, pt will receive the recommended mobility device and utilize this device in her/his home for increased independence and safety with MRADLs. PLAN: No further skilled PT necessary at this time and will discontinue skilled PT services at this time due to maximal benefit and completion of the clinic assessment and hold, with plan to discharge upon approval and obtaining the mobility device. Reassessment of mobility equipment or change in status of the individual may be required in the future but will occur prior to 11/10/15. Total treatment time: 60 minutes: 1 unit evaluation and 2 unit(s) of wheelchair management. I, the undersigned, certify that the above prescribed, durable, medical equipment, is medically necessary as part of my treatment for Jeff A Voegele. In my opinion, the equipment prescribed is reasonable and necessary according to the accepted standards of medical practice and treatment for paraplegiaand severe osteoporosis and has not been prescribed as convenience equipment. If you require further information or clarification, please do not hesitate to contact this therapist at . Thank you for your prompt action with this matter. Sincerely, Trudi Raymundo, PT, License # [id number] 10/22/14 Please sign below and fax this report, with your signature, to our clinic at [phone]. Your signature is required to continue treatment of the above patient per Medicare regulations. I certify the need for the above services furnished under this treatment plan while under my care. _ May Randle MD 10/22/14 ONNEL RESEARCH SCIENTIST documented in this encounter Plan of Treatment Not on filedocumented as of this encounter Visit Diagnoses Diagnosis Paraplegia ([facility]) - Primary Paraplegia Osteoporosis ([facility]) Osteoporosis, unspecified Back pain Backache, unspecified Gait abnormality Abnormality of gait documented in this encounter Care Teams Electromechanical Technologist Relationship Specialty Start Date End Date Loretta Mcmahna MD PCP - General Family Practice 10/21/1402/10 documented as of this encounter
--- OUTSIDE RECORDS SUMMARY | 2022-06-20 02:24 | XMS_ITS | Encounter Summary ---
:1945 Author Organization [facility] Address [address] [place] [address] Care Team Providers Name Role Phone Loretta Mcmahan MD Primary Care Provider Unavailable Encounter Details Date Type Department Care Team Description 10/22/2014 Orders Only External to External, [place] [address] Social History Tobacco Use Types Packs/Day Years [...] Priority Date/Time Associated Diagnosis Comme nts SCANNED LAB 10/22/2014 12:00 AM Results for this TICKET MAKER procedure are i n the results section . documented in this encounter Results SCANNED LAB (10/22/2014 12:00 AM TICKET MAKER) Specimen (Source) Anatomical Location Collection Method / Collectio n Time Received Time / Laterality Volume 10/22/2014 Narrative This result has an attachment that is no t available. Provider External LAB_1 documented in this encounter Visit Diagnoses Not on filedocumented in this encounter Care Teams Slab Installer Relationship Specialty Start Date End Date Loretta Mcmahan MD PCP - General Family Practice 10/21/1402/10 documented as of this encounter
--- OUTSIDE RECORDS SUMMARY | 2022-06-20 02:24 | XMS_ITS | Encounter Summary ---
:1945 Author Organization [facility] Address [address] [address] Care Team Providers Name Role Phone Franklin Squires MD Primary Care Provider Encounter Details Date Type Department Care Team Description 12/16/2014 Correspondence External to External, Provid er MEDICARE PLAN OF CARE No address [facility] [place] [address] Social History Tobacco Use Types Packs/Day Years [...] on filedocumented in this encounter Care Teams Binder And Wrapper Packer Relationship Specialty Start Date End Date Franklin Squires MD PCP - General Family Practice 03/08/[address] [place] [address] [facility] [place] [address] documented as of this encounter
--- OUTSIDE RECORDS SUMMARY | 2022-06-20 02:24 | XMS_ITS | Encounter Summary ---
:1945 Author Organization [facility] Address [address] [place] [address] Care Team Providers Name Role Phone No Primary/Referring, Phy Primary Care Provider Unavailable Reason for Referral Consult/Transfer Care (Routine) - Closed Specialty Diagnoses / Procedures Referred By Contact Refer red To Contact Physical Therapy Garry Neff MD [facility] [address] [place] [address] [id number] [place] [address] Phone: Fax: Referral ID Status Reason Start Date Expiration Date Visits Requ ested Visits Authorized [id number] Closed 09/07/2014 11/08/2014 1 1 Scheduling Instructions If scheduling assistance is needed, ninfa duran inquire with the medical office staff upon exiting your appointment or contact the ordering clinic for recommended locations. This recommended service/s may not be co maycol by your insurance coverage. To find out your specific benefit coverage, please c all the number on your insurance card. Reason for Visit Reason Comments Revisit F/u Encounter Details Date Type Department Care Team Description 09/07/2014 Office Visit Specialty Center Garry Neff (Primary Dx); [facility] NeuroSurgery MD Jose Back pain; [address] [place] [address] [place], [place] [phone] (Wo rk) Social History Tobacco Use Types Packs/Day Years Used Date Smoking Tobacco: Never Smokeless Tobacco: Never Alcohol Use Standard Drinks/Week Comments No 0 (1 standard drink = 0.6 oz pure alcoho l) Sex Assigned at Date Recorded Male 08/06/2021 5:59 PM CDT documented as of this encounter Last Filed Vital Signs Vital Sign Reading Time Taken Comments Blood Pressure 116/77 09/07/2014 1:09 PM CDT Pulse 92 09/07/2014 1:09 PM CDT Temperature - - Respiratory Rate 15 09/07/2014 1:09 PM CDT Oxygen Saturation - - Inhaled Oxygen Concentration - - Weight - - Height - - Body Mass Index - - documented in this encounter Patient Instructions Patient InstructionsSelene Johnson RN - 09/07/2014 1:32 PM CDT Neurosurgery[facility] Patient Instructions You have been referred to physical therapy for ultra sound and massage for back pain. Once you are cleared for getting off of the Coumadin you should proceed with the Rhyzotomy Follow up with Dr. Garry Neff this will be determined once reviews your thoracic MRI If tests were ordered, they will be [...] understanding. Please call the Neurosurgery/Spine Clinic at [phone] with any further questions or concerns. documented in this encounter Progress Notes Cristine Haddad PA-C - 09/07/2014 3:06 PM CDT Neurosurgery Clinic Follow Up Note Chief Complaint: low back pain Jeff is a pleasant 69 yr old male who presents today for follow up visit. 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 Prior to this surgery, he had resection x 2 and radiation. Hehad paraplegia from prior to surgery without improvement post-op. He has neurogenic bowel/bladder with indwelling catheter and colostomy. He remains insensate in the LEs with chronic light tingling on anterior thighs. Jeff was recently had a right frontoparietal craniotomy for evacuation of non- traumatic subdural hematoma on 07/28/[address] Shelley. He presented to the ED with a severe headache for 8 days; was on coumadin for DVT treatment, presented with an INR of 1.1. In terms of his back, Jeff does report left-sided low back pain that ranges anywhere from 3-9/10. His back pain is worst with bending. He had 2 facet injections at [facility] at left L1-2, on 07/27 and 08/10 with up to 90% relief of pain. Unfortunately, he has been unable to receive the rhizotomy due to the coumadin use. Dr. Salvador is following Jeff for the DVT, and patient states he is supposed to continue his coumadin until seen in clinic with Dr. Shelley with repeat HCT on 09/17. For pain, is taking [place], baclofen (controls his LE spasticity) and gabapentin. Has done physical therapy in the past for his back, which has really helped with his pain. He would like to try PT again. Physical Examination: BP 116/77 Pulse 92 Resp 15 Wt ?? General: in no acute distress. Alert and oriented x 3 ?? HEENT: Right cranial incision crusted with small amount of blood. Dry, without dehiscence, erythema and edema. ?? Neurological: CN II-XII grossly intact, speech clear and fluent in character and contact. Sensation is absent to light touch in lower thoracic and lumbar dermatomes. ?? Psych: appropriate affect and mood ?? Musculoskeletal: Confrontational strength testing reveals 0/5 LE ?? Gait: electric wheelchair ?? Spine: difficult to assess d/t patient being insensate. Palpation of facet joints, SI joints, andhip bursa does not reproduce back pain. Imaging Studies: Thoracic MRI: 1. Stable post treatment changes status post resection and radiation of thoracic spinal cord ependymoma, without evidence for residual/recurrent disease. 2. Redemonstrated morphologic changes of the thoracic spine at the levels of resection, demonstrating flattening and apparent adhesion to the posterior dura of the thecal sac from the approximate levelof T2-T3 through the mid T5 vertebral body level. 3. 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 Redemonstrated focal loculated CSF collection is noted anterior to the conus. 4. Stable heterogeneous, lobular collection along the midline dorsal paraspinal soft tissues at the level of surgery, measuring up to 6.9 cm craniocaudal. Bone spect scan: Moderately increased delayed radiotracer accumulation at the L3-L4 and L5-S1 interspaces. Mild delayed radiotracer accumulation at the right T12-L1 and bilateral L1-L2 facets. Bilateral kidney cysts. IVC filter. Trace calcified aortoiliac atherosclerosis. LLQ end colostomy. Scattered colonic diverticula. Assessment 69 yo male s/p resection of thoracic ependymoma, post-op meningitis, paraplegia. No evidence of recurrence on recent thoracic MRI. Low back pain, facet arthritis with significant pain relief following left L1-2 facet injections. Non-traumatic SDH, s/p right frontoparietal craniotomy for evacuation. H/o coumadin use with IVC filter Plan Rx for physical therapy for back and for massage therapy. Needs rhizotomy at left L1-2 facets-await Dr. Salvador's recommendations on timing of this. Follow-up in 3 months with thoracolumbar AP/lat/flex/ex for back pain. Jeff verbalizes understanding and states no further questions at this time. The plan of care was developed in conjunction with Dr Neff. Patient was instructed to follow up sooner if symptoms change, worsen, or if questions arise. Cristine Mir PA-C Neurosurgery Total time spent with the patient was 20 minutes, of which over 50% was spent on counseling. documented in this encounter Plan of Treatment Scheduled Referrals Name Type Priority Associated Diagnoses Order [facility] PHYSICAL THERAPY Referral Routine Ordered: documented as of this encounter Visit Diagnoses Diagnosis Paraplegia (HRC) - Primary Paraplegia Back pain Backache, unspecified 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, unspecified site documented in this encounter Care Teams Customer Contact Sales Associate Relationship Specialty Start Date End Date No Primary/Referring, Phy PCP - General 09/07/14 1 12/20/13 documented as of this encounter
--- OUTSIDE RECORDS SUMMARY | 2022-06-20 02:24 | XMS_ITS | Encounter Summary ---
:1945 Author Organization [facility] Address [address] [place] [address] Care Team Providers Name Role Phone Julien Schafer MD Primary Care Provider Reason for Visit Auth/Cert - Closed Specialty Diagnoses / Procedures Referred By Contact Refer red To Contact Diagnoses Fever Headache Sepsis ([facility]C) DVT (deep venous thrombosis), unspecified laterality Neurogenic bladder Paraplegia ([facility]) UTI (lower urinary tract infection) Fever Headache Sepsis DVT (deep venous thrombosis), unspecified laterality Neurogenic bladder Paraplegia UTI (lower urinary tract infection) Referral ID Status Reason Start Date Expiration Date Visits Requ ested Visits Authorized [id number] Closed 1 1 Encounter Details Date Type Department Care Team Description 10/20/2014 Imaging [facility] [address] [place] [address] Social History Tobacco Use Types Packs/Day Years [...] Priority Date/Time Associated Diagnosis Comme nts XR PORTABLE CHEST 1 STAT 10/20/2014 2:21 PM Re sults for this VIEW CERTIFIED PUBLIC ACCOUNTANT procedure are i n the results section. documented in this encounter Results XR PORTABLE CHEST 1 VIEW (10/20/2014 2:21 PM CERTIFIED PUBLIC ACCOUNTANT) Anatomical Region Laterality Modality Chest, Lung Computed Radiography Specimen (Source) Anatomical Collection Method Collection Time Re ceived Time Location / / Volume Laterality 10/20/2014 2:21 PM CERTIFIED PUBLIC ACCOUNTANT Narrative 10/20/2014 2:26 PM CERTIFIED PUBLIC ACCOUNTANT XR PORT CHEST 1 VW 10/20/2014 2:21 PM INDICATION: Fever COMPARISON: 05/31/2010 FINDINGS: The heart is mildly enlarged. There is slight elevation of the right diaphragm which is old. The lung f ields are clear. Minimal hypertrophic changes in the spine. Procedure Note Nabil Justin MD - 10/20/2014Forma tting of this note might be different from the original. XR PORT CHEST 1 VW 10/20/2014 2:21 PM INDICATION: Fever COMPARISON: 05/31/2010 FINDINGS: The heart is mildly enlarged. There is slight elevation of the right diaphragm which is old. The lung f ields are clear. Minimal hypertrophic changes in the spine. Boy Nevarez MD RAD PORTABLE documented in this encounter Visit Diagnoses Not on filedocumented in this encounter Care Teams Sap Gatherer Relationship Specialty Start Date End Date Julien Schafer MD PCP - General Internal Medicine 10/20/14 10/20/[address] [place] [address] documented as of this encounter
--- OUTSIDE RECORDS SUMMARY | 2022-06-20 02:24 | XMS_ITS | Encounter Summary ---
:1945 Author Organization [facility] Address [address], [place] [address] Care Team Providers Name Role Phone Loretta Mcmahan MD Primary Care Provider Unavailable Reason for Referral Consult/Transfer Care (Routine) - Incomplete Specialty Diagnoses / Procedures Referred By Contact Refer red To Contact Brown Blanton MD [address] [place] [id number] Referral ID Status Reason Start Date Expiration Date Visits V isits Requested Authorized [id number] Incomplete 10/21/2014 11/21/2014 1 1 Scheduling Instructions If scheduling assistance is needed, ninfa duran inquire with the Hospital staff upon discharge. RIALS PLANNING MANAGER Procedure/Equipment (Routine) - Incomplete Specialty Diagnoses / Procedures Referred By Contact Refer red To Contact Procedures Boy Nevarez MD XR PORTABLE CHEST 1 VIEW [address] [place] [address] Referral ID Status Reason Start Date Expiration Date Visits V isits Requested Authorized [id number] Incomplete 10/20/2014 1 1 RIALS PLANNING MANAGER Procedure/Equipment (Routine) - Incomplete Specialty Diagnoses / Procedures Referred By Contact Refer red To Contact Procedures Boy Nevarez MD CT HEAD WITHOUT CONTRAST [address] [place] [address] Referral ID Status Reason Start Date Expiration Date Visits V isits Requested Authorized [id number] Incomplete 10/20/2014 1 1 RIALS PLANNING MANAGER Reason for Visit Reason Comments HEADACHE--ED Auth/Cert - Closed Specialty Diagnoses / Procedures [...] Expiration Date Visits Requ ested Visits Authorized [id number] Closed 1 1 Encounter Details Date Type Department Care Team Description 10/20/2014 - Emergency [facility] C63 Boy Nevarez MD [address] [place] [address] Fever (Primary Dx); 10/21/2014 640 [facility] Brown Blanton MD [address] [place] [address] Headache; [place] [address] Sepsis; [phone] DVT (deep venou s thrombosis), unspecified laterality; Neurogenic blad swapnil; Paraplegia; UTI (lower urin adi tract infection); Back pain; Osteoporosis; Hyperparathyroi dism; Vitamin D defic iency; Tachycardia, un specified; penitentiary (curr ent) use of anticoagulants; Personal histor y of venous thrombosis and embolism Social History Tobacco Use Types Packs/Day Years Used Date Smoking Tobacco: Never Smokeless Tobacco: Never Alcohol Use Standard Drinks/Week Comments No 0 (1 standard drink = 0.6 oz pure alcoho l) Sex Assigned at Date Recorded Male 08/06/2021 5:59 PM CDT documented as of this encounter Last Filed Vital Signs Vital Sign Reading Time Taken Comments Blood Pressure 161/86 10/21/2014 7:08 AM MATERIALS PLANNING MANAGER Pulse 101 10/21/2014 7:08 AM MATERIALS PLANNING MANAGER Temperature 37.3 ??C (99.2 ??F) 10/21/2014 7:08 AM MATERIALS PLANNING MANAGER Respiratory Rate 16 10/21/2014 7:08 AM MATERIALS PLANNING MANAGER Oxygen Saturation 97% 10/21/2014 7:08 AM MATERIALS PLANNING MANAGER Inhaled Oxygen Concentration - - Weight 112.5 kg (248 lb) 10/21/2014 7:16 AM MATERIALS PLANNING MANAGER Height 175.3 cm (5' 9) 10/20/2014 6:11 PM MATERIALS PLANNING MANAGER Body Mass Index 36.62 10/20/2014 6:11 PM MATERIALS PLANNING MANAGER documented in this encounter Discharge Summaries Brown Blanton MD - 10/21/2014 8:[address] 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 No acute abnormality. 2. Normal intracranial contents. 3. Right parietal craniotomy again identified. CXR: The heart is mildly enlarged. There is slight elevation of the right diaphragm which is old. The lung kc are clear. 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 Reports he had mild headache when he went to bed and then woke up this morning and headache was more severe. Headache was described as constant and located around his entire head. Denies photophobia or sound sensitivity. reports had fever of 102F and heappeared flushed. Associated dizziness when turning his head. Rates headache 5/10. See H&P for full details. Hospital Course Urinary Tract Infection with Mild Sepsis - secondary to chronic green. Spiked fever in 101.5F overnight, remains afebrile and non-toxic this morning. Definitive culture results are pending, but greaterthan 100K gram negative rods growing at time of discharge. Discussed remaining in hospital until speciation and sensitivities return, then changing to definitive PO antibiotic therapy. However, patientand were comfortable with changing to broad spectrum oral antibiotic and discharging prior to definitive culture results. Patient was subsequently started on PO Levaquin to complete a 7 day courseof therapy. Rash of bilateral UEs - appears to be reaction to each zosyn dosage. Received benadryl with improvement of rash. Did not have any other symptoms here. Given apparent direct correlation with Zosyn dosages, will place Penicillin allergy in chart. Headache - presented with global headache which completely resolved without intevention. CT head without acute findings. Likely related to acute infection. Neurogenic bowel/bladder - with indwelling catheter and colostomy History of LE deep vein thrombosis with IVC filter - on coumadin. INR goal 2.0- 2.5, follows with and in a coumadin clinic near his home. INR 2.5 today. - continue coumadin Subdural hematoma - s/p open right frontoparietal craniotomy for evacuation of hematoma performed on07/28/[address] Cooper Shelley. 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 Dyslipidemia - continue atorvastatin Anxiety - continue ativan prn Patient seen and examined today. Pertinent discharge exam findings: BP 161/86 Pulse 101 Temp(Src) 99.2 ??F (37.3 ??C) (Oral) Resp 16 Ht 5' 9 (1.753 m) Wt 112.492 kg (248 lb) BMI 36.61 kg/m2 SpO2 97% General: NAD, pleasant HEENT: MMM Cardiovascular: regular rate and rhythm, no murmur/rub/gallop Pulmonary: CTAB, no wheezing/rales Abdominal: soft, not distended, non tender, no rebound/guarding , colostomy area c/d/i Ext: WWP. : green in place, urine appears yellow without evidence of purulence or bleeding Neurological: A&Ox3, non-focal exam Skin: warm/dry Discharge Instructions: Diet: regular Activity: As tolerated Condition at discharge:stable. Discharge destination:home. Medications at discharge: Discharge Medication List as of 10/21/2014 11:22 AM START taking these medications Details levoFLOXACIN (AKA LEVAQUIN) 500 MG tablet Take 1 Tab by mouth daily for 7 days. Indications: Infection of Urinary Tract with Complications, Disp-7 Tab, R-0, DAILY Starting 10/21/2014, Until [place] 10/28/14, Oral, Normal CONTINUE these medications which have CHANGED Details atorvastatin (LIPITOR) 40 MG tablet Take 1 Tab by mouth daily. Indications: high Choelsterol, Disp-30 Tab, R-11, DAILY Starting 10/21/2014, Until Discontinued, Oral, No Print/No Fill baclofen (AKA LIORESAL) 20 MG tablet Take 2 Tabs by mouth three times a day. Indications: Muscle Spasticity, Disp-90 Tab, R-0, TID Starting 10/21/2014, Until Discontinued, Oral, No Print/No Fill buPROPion (AKA WELLBUTRIN SR) 150 MG 12 hour release tablet Take 1 Tab by mouth two times a day. Indications: Major Depressive Disorder, BID Starting 10/21/2014, Until Discontinued, Oral, No Print/No Fill cholecalciferol (AKA VITAMIN D3) 1000 UNITS tablet Take 2 Tabs by mouth daily. Indications: Vitamin D Deficiency, Disp-60 Tab, R-11, DAILY Starting 10/21/2014, Until Discontinued, Oral, No Print/No Fill DULoxetine (AKA CYMBALTA) 20 MG capsule Take 1 Cap by mouth 4 times a day. Indications: Major Depressive Disorder, QID Starting 10/21/2014, Until Discontinued, Oral, No Print/No Fill furosemide (AKA LASIX) 20 MG tablet Take 1 Tab by mouth daily as needed (Edema)., Disp-30 Tab, R-11,DAILY PRN Starting 10/21/2014, Until Discontinued, Oral, No Print/No Fill gabapentin (AKA NEURONTIN) 400 MG capsule Take 1 Cap by mouth three times a day. Indications: Pain, Disp-90 Cap, R-6, TID Starting 10/21/2014, Until Discontinued, Oral, No Print/No Fill niacin 500 MG tablet Take 1 Tab by mouth daily with breakfast. Indications: High Amount of Cholesterol in the Blood, QDAY WITH MEAL Starting 10/21/2014, Until Discontinued, Oral, No Print/No Fill polyethylene glycol (AKA MIRALAX) packet Take 1 Packet by mouth daily. Indications: Constipation, Disp-10 Each, R-2, DAILY Starting 10/21/2014, Until Discontinued, Oral, No Print/No Fill potassium chloride (KLOR-CON M20) 20 MEQ tablet Take 1 Tab by mouth daily. Indications: Low Amount of Potassium in the Blood, DAILY Starting 10/21/2014, Until Discontinued, Oral, No Print/No Fill CONTINUE these medications which have NOT CHANGED Details Calcium Carbonate-Vitamin D (CALTRATE 600+D) 600-400 MG-UNIT Take 1 Tab by mouth two times a day., BID, Until Discontinued, Oral, Historical Generic Medication (COMPOUNDED CREAM) Apply 1-2 grams to the lower back TID prn. Ketamine 10%, boclofen 2%, gabapentin 6%, verapamil 6%. Apply to low back TID prn, Disp-250 g, R-6, Fax HYDROcodone-acetaminophen (AKA NORCO) 5-325 MG tablet Take 1-2 Tabs by mouth every 4 hours as neededfor Pain., Disp-90 Tab, R-0, Q4H PRN Starting 08/02/2014, Until Discontinued, Oral, Normal levETIRAcetam (AKA KEPPRA) 1000 MG tablet Take 1 Tab by mouth every 12 hours. Indications: seizure ppx, Disp-60 Tab, R-2, Q12H (NON-STND) Starting 08/02/2014, Until Discontinued, Oral, Normal LORazepam (AKA ATIVAN) 0.5 MG tablet Take 0.5 mg by mouth every 4 hours as needed for Anxiety., Q4H PRN, Until Discontinued, Oral, Historical Multiple Vitamins-Minerals (CENTRUM SILVER OR) Take 1 Tab by mouth daily., DAILY, Until Discontinued, Oral, Historical trimethoprim (AKA TRIMPEX) 100 MG tablet Take 100 mg by mouth daily., DAILY, Until Discontinued, Oral, Historical warfarin (AKA COUMADIN) 5 MG tablet Take 1 tablet (5mg) by mouth on Mondays and take 1.5 tablets (7.5mg) all other days of the week Indications: Blood Clot in a Deep Vein, Until Discontinued, Historical STOP taking these medications Calcium-Vitamin D (CALTRATE 600 PLUS-VIT D OR) Comments: Reason for Stopping: Code Status: Full Code. Discharge Procedure Orders Follow up with your primary care physician Scheduling Instructions: If scheduling assistance is needed, please inquire with the Hospital staff upon discharge. Order Specific Question Answer Comments What type of follow up? IP Discharge Reason for visit? Recent admission for UTI with Sepsis Appointment Urgency? Urgent (patient needs to be seen within one week) When to Resume Normal Activities: Order Comments: You may resume normal activities as tolerated Discharge Diagnosis Order Comments: 1. Urinary Tract infection with Mild Sepsis Discharge Instructions Order Comments: Complete course of prescribed antibiotics Call the doctor for these danger signs Order Comments: Fevers/chills, chest pain, shortness of breath, lightheadedness or loss of consciousness. Regular Diet Lab Tests Order Comments: INR SCHEDULING INSTRUCTIONS (date/time): 2-3 Days . ROUTE RESULTS TO: PCP or Warfarin Clinic Time spent in discharge: > 30 minutes Observation discharge Brown Blanton MD [facility] Pager: [phone] This document serves as a record of services personally performed by Brown Blanton MD. It was created on his behalf by Opal Ontiveros, a trained medical office specialist. The creation of this record is based on the scribe's personal observations and the provider's statements to her. The document has been checked and approved by the attending provider. --End of Report-- RIALS PLANNING MANAGER documented in this encounter Discharge Instructions Discharge Tamir Nathan RN - 10/21/2014 11:11 AM CST Information about future appointments scheduled by [facility] Management or Nursing (These appointments may appear in the list above) General Information Discharging physician: Dr. Brown Blanton Discharge date: 10/21/2014 Discharge Disposition HOME Immunization Most Recent Immunizations Administered Date(s) Administered ??? Flu Vac (3+ yrs) 10/06/2009 ??? Flu Vac, historical 08/11/2014 ??? H1n1 Miv Csl 3+ Yr (Injected) 12/06/2009 ??? Pneumococcal, PPSV23 10/06/2009 There is documentation in the Immunization/Injection section and/or the MAR (NOT in the notes) that the patient: Pneumonia:reported previously receiving the pneumococcal vaccine and it is documented in the Immun/Injection section of the chart Influenza:reported previously receiving the vaccine (or received this year for seasonal flu) and it is documented in the Immun/Injection section of the chart Home Care Instructions NONE Valuables/Medications Patient and/or family verified that all valuables have been returned: Yes Patient and/or family verified that all valuables removed from room safe: Yes Danger Signs Call your clinic or seek medical help if you have any sudden change in your condition or if you haveany of the following: chest pain difficulty breathing fever greater than 101.5 degrees F pain not relieved with usual methods shortness of breath Community Resources NONE Contact Information [place] [phone] For questions about your discharge instructions call the nursing unit : MIGUEL Iglesias, Emergency & Urgently Needed Care: For emergencies call 911 and/or get medical help right away. If you are a [employer] member and have medical needs after clinic hours you may call the CareLineat [phone] or . Smoking and second-hand smoke exposure: Smoking damages blood vessels, reduces the oxygen in your blood and makes your heart beat too fast. If you smoke you should quit. Everyone should avoid second- hand smoke. If you would like further assistance after your discharge, please contact [phone] or visit [email or web address] can offer further information and assistance. Stroke Warning Signs and Symptoms: Call immediately if you experience any of these symptoms: ?? Sudden weakness or numbness of the face, arm or leg, especially on one side of the body ?? Sudden confusion, trouble speaking or understanding ?? Sudden trouble seeing in one or both eyes ?? Sudden trouble walking, dizziness, loss of balance or coordination ?? Sudden, severe headaches with no known cause Weight Management: Weight is an important indicator of health that can assist you and your physician in managing your self-care. It is desirable for everyone to maintain a weight that is suitable to your height, age, activity level, and, in some cases, to illness. The following suggestions can assist you in managing this important health indicator: For all Medical-Surgical patients: Weigh yourself regularly on the same scale at the same time of day. Keep track of trends and report them to your physician. Ask what your ideal weight should be. For those with heart failure, liver failure or kidney failure (not on dialysis): Weigh yourself every day, the same way, on the same scale and in the same clothing. (We suggest in the morning, after going to the bathroom and before taking your medications.) Call your doctor or nurse if you gain more than 3 pounds per day or if you gain more than 5 pounds in a week. For those with kidney failure on dialysis: Keep track of your weight from one dialysis treatment to the next. You should keep weight gains to less than 2 pounds per day and no more than 5 pounds between dialysis runs. Your weight will also be followed by the Farm Loan Inspector when you go in for your treatment. All medical devices (telemetry/IV/etc) unless otherwise ordered, have been removed before discharge. We hope you had a positive experience and that you can definitely recommend [facility] to yourfamily and friends. You may receive a survey in the mail in about 2 weeks and we look forward to hearing your feedback. When leaving your room at discharge, please stop at the nursing unit desk to check out. RIALS PLANNING MANAGER documented in this encounter Medications at Time [...] Vitamin Indications: D Deficiency Vitamin D Deficiency LORazepam (AKA ATIVAN) 0.5 Take 0.5 mg by 0 MG tablet mouth every 4 hours as needed for Anxiety. Multiple Vitamins-Minerals Take 1 Tab by mouth 0 (CENTRUM SILVER OR) daily. polyethylene glycol (AKA Take 1 Packet by 10 Each 2 10/21 MIRALAX) packetIndications: mouth daily. Constipation Indications: Constipation warfarin (AKA COUMADIN) 5 Take 1 tablet (5mg) 0 MG tabletIndications: Deep by mouth on Mondays Vein Thrombosis and take 1.5 tablets (7.5mg) all other days of the week Indications: Blood Clot in a Deep Vein levoFLOXACIN (AKA LEVAQUIN) Take 1 Tab by mouth 7 Tab 0 10/21/2014 10/28/2014 500 MG tabletIndications: daily for 7 days. Complicated Urinary Tract Indications: Infection Infection of Urinary Tract with Complications Calcium Carbonate-Vitamin D Take 1 Tab by mouth 0 01/18/2022 (CALTRATE 600+D) 600-400 two times a day. MG-UNIT DULoxetine (AKA CYMBALTA) Take 1 Cap by mouth 0 1 12/22/2013 11/19/2014 20 MG capsuleIndications: 4 times a day. Major Depressive Disorder Indications: Major Depressive Disorder furosemide (AKA LASIX) 20 Take 1 Tab by mouth 30 Tab 11 1 12/22/2013 01/18/2022 MG tablet daily as needed (Edema). gabapentin (AKA NEURONTIN) Take 1 Cap by mouth 90 Cap 6 10/21/2014 11/16/2014 400 MG capsuleIndications: three times a day. Pain Indications: Pain Generic Medication Apply 1-2 grams to the lower back TID prn. 250 g 6 04/26/2014 10/29/2014 (COMPOUNDED Ketamine 10%, boclofen 2%, g abapentin 6%, verapamil 6%. Apply to low back TID prn CREAM)Indications: Back pain HYDROcodone-acetaminophen Take 1-2 Tabs by 90 Tab 0 07/1312/21/2015 (AKA NORCO) 5-325 MG tablet mouth every 4 hours as needed for Pain. levETIRAcetam (AKA KEPPRA) Take 1 Tab by mouth 60 Tab 2 08/02/2014 10/22/2014 1000 MG tabletIndications: every 12 hours. seizure ppx Indications: seizure ppx niacin 500 MG Take 1 Tab by mouth 0 10/21/2014 tabletIndications: daily with Hypercholesterolemia breakfast. Indications: High Amount of Cholesterol in the Blood potassium chloride Take 1 Tab by mouth 0 10/21/20 14 11/19/2014 (KLOR-CON M20) 20 MEQ daily. Indications: tabletIndications: Low Amount of Hypokalemia Potassium in the Blood trimethoprim (AKA TRIMPEX) Take 100 mg by 0 01/18/2022 100 MG tablet mouth daily. documented as of this encounter Progress Notes Swati Emerson PA-C - 10/22/2014 8:28 AM MATERIALS PLANNING MANAGER Quick Note: From Discharge summary Patient admitted for Urinary Tract Infection with Mild Sepsis - secondary to chronic green. Day of discharge culture noted to be greater than 100K gram negative rods growing. Patient was started on PO Levaquin awaiting speciation, to complete a 7 day course of therapy. Culture growing out > 100,000 col of enterobacter cloacae species that is sensitive to levofloxacin. RIALS PLANNING MANAGER Noble Harrington MD - 10/20/2014 10:13 PM CST Received text that patient has red spots on his arms. Unclear if related to piperacillin-tazobactam or not. Ordered diphenhydramine per request. Placed MD to RN order to notify crosscover MD immediately if rash worsens or there are any other symptoms: hypotension, tachycardia, erythroderma, bronchospasm, urticaria, etc. Would be cautious about labeling him PCN-allergic at this point as this may have future ramifications. Noble Harrington MD RIALS PLANNING MANAGER documented in this encounter Consult Notes Virginia Oreilly - 10/20/2014 2:55 PM CSTAssociated Order(s): ED UR RESTAURANT COOK CONSULT ED UR Horticulture Worker note: Chart reviewed by ED UR Horticulture Worker: Inpatient telemetry admission on transfer from outside hospital w/temp there of 101, IVABs, Zosyn and Vancomycin, IVF. 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 Reports he had mild headache when he went to bed andthen woke up this morning and headache was more severe. Headache was described as constant and located around his entire head. Denies photophobia or sound sensitivity. reports had fever of 102F and he appeared flushed. Associated dizziness when turning his head. Rates headache 5/10. Patient had subdural hematoma in July and reports headache was 10/10 at that time and more localized. Patientwas sent from [place] as CT machine was down. Has chronic indwelling catheter, no changes in urineoutput. reports that she does regular skin checks and has not noted any ulcers or cellulitis. Denies photophobia, phonophobia, shortness of breath, cough, urinary sxs, nasal congestion, sore throat, generalized weakness, body aches, chest pain, vision changes. No exposure to sick contacts. No recent travel. In ED, patient only complains of being tired as headache has resolved. White count elevated at 13.7.UA is concerning for infection with proteinuria, leukocyte esterase, and 542 WBC's. Tachycardic on arrival. Was started on zosyn and vancomycin in ED. CT head without acute findings. CXR unremarkable. A febrile. Past Medical History Past Medical History Diagnosis Date ??? Ependymoma nos 2000 S/p resection by Dr. Glasgow at [facility] in 05/2000. However resection was incomplete due [...] for spasticity of lower extremities. ??? Osteoporosis night time babysitter wheelchair since 2006 ??? Leg fracture, left nontraumatic ??? Hypercholesteremia ??? Chronic constipation ??? Depression ??? Subdural hematoma, acute 2013 ??? Lower paraplegia ??? Chronic anticoagulation Past Surgical History Past Surgical History Procedure Laterality Date ??? Appendectomy ??? Vasectomy* ??? Turp incl contrl postop bleed cmpl ??? [id number] total knee arthroplasty right ??? Ivc filter placement 1999 ??? Craniotomy, evac sdh 07/1714 Dr. Oswald Shelley Home Medications: atorvastatin (LIPITOR) 40 MG tablet Take 1 Tab by mouth daily. Disp: Rfl: baclofen (AKA LIORESAL) 20 MG tablet Take 2 Tabs by mouth three times a day. Disp: 90 Tab Rfl: 0 cholecalciferol (AKA VITAMIN D3) 1000 UNIT tablet Take 2 Tabs by mouth daily. Disp: 60 Tab Rfl: 11 gabapentin (AKA NEURONTIN) 400 MG capsule Take 1 Cap by mouth three times a day. Disp: 90 Cap Rfl: 6 Generic Medication (COMPOUNDED CREAM) Apply 1-2 grams to the lower back TID prn.Ketamine 10%, boclofen 2%, gabapentin 6%, verapamil 6%. Apply to low back TID prn (Patient taking differently: Apply 1 grams to the lower back TID prn. Ketamine 10%, baclofen 2%, gabapentin 6%, verapamil 6%. Apply to low back TID prn) Disp: 250 g Rfl: 6 HYDROcodone-acetaminophen (AKA NORCO) 5-325 MG tablet Take 1-2 Tabs by mouth every 4 hours as neededfor Pain. Disp: 90 Tab Rfl: 0 levETIRAcetam (AKA KEPPRA) 1000 MG tablet Take 1 Tab by mouth every 12 hours. Indications: seizure ppx Disp: 60 Tab Rfl: 2 Multiple Vitamins-Minerals (CENTRUM SILVER OR) Take 1 Tab by mouth daily. Disp: Rfl: niacin 500 MG tablet Take 500 mg by mouth daily with breakfast. Disp: Rfl: polyethylene glycol (AKA MIRALAX) packet Take 17 g by mouth daily. (Patient taking differently: Take17 g by mouth daily as needed.) Disp: 10 Each Rfl: 2 Allergies Allergies Allergen Reactions ??? Oxycodone Other, see comments Delirium ??? Zaroxolyn [Sulfa Drugs] Rash Social History History Substance Use Topics ??? Smoking status: Never Smoker ??? Smokeless tobacco: Never Used ??? Alcohol Use: No History Social History Narrative Wheelchair bound. Able to transfer from bed to wheelchair with assist of 1 at baseline. Lives with his in [place]. Family History Family History Problem Relation Age of Onset ??? Cancer, Colon Mother ??? Cancer, Other Brother brother with throat cancer ??? Cancer, Breast Sister ??? Osteoporosis Mother no history of fractures Review of Systems A comprehensive 10 point review of systems is otherwise negative than what is stated in the HPI. Physical Exam BP 144/85 Pulse 95 Temp(Src) 98.8 ??F (37.1 ??C) (Oral) Resp 16 SpO2 94% General: pleasant male in NAD HEENT: Moist mucus membranes, sclerae anicteric, head atraumatic, neck supple Cardiovascular: regular rate and rhythm, no murmur/rub/gallop, palpable distal pulses Pulmonary: CTAB, no wheezing/rales Abdominal: soft, not distended, NABS, no rebound/guarding Ext: trace LE edema bilaterally Neurological: CN II-XII grossly intact, moves UE with FROM, LE flaccid Skin: warm, dry, no rash Labs: Results for orders placed during the hospital encounter of 10/20/14 (from the past 24 hour(s)) INR/PROTIME Result Value Range PROTIME 27.0 (*) 12.0 - 14.5 sec INR 2.5 (*) 0.9 - 1.1 Narrative: Performed at [facility], [address] [place] [id number] APTT (ACTIVATED PARTIAL THROMBOPLASTIN TIME Result Value Range PTT 54.4 (*) 24.0 - 37.0 sec Narrative: Performed at [facility], [address] [place] [address] [id number] HEMOGRAM/PLTS Result Value Range WBC 13.7 (*) 4.0 - 11.0 k/ul RBC 3.82 (*) 4.5 - 5.9 M/ul HGB 11.6 (*) 13.5 - 17.5 g/dl HCT 34.9 (*) 41.0 - 53.0 % MCV 91.4 80 - 100 fl MCH 30.4 26 - 34 pg MCHC 33.2 32 - 36 g/dl RDW 13.9 11.5 - 14.5 % PLTS 138 (*) 150 - 450 k/ul MPV 10.3 9.4 - 12.4 fl Narrative: Performed at [facility], [address] [place] [id number] BASIC METABOLIC PANEL Result Value Range SODIUM 140 135 - 145 mmol/L POTASSIUM 3.9 3.5 - 5.3 mmol/L CHLORIDE 100 95 - 106 mmol/L CO2 29 22 - 30 mmol/L ANION GAP (CALC.) 11 7 - 16 mmol/L GLUCOSE 109 70 - 180 mg/dl CALCIUM 8.4 8.4 - 10.2 mg/dl BUN 15 7 - 20 mg/dl CREATININE 0.91 0.66 - 1.25 mg/dl GFR, ESTIMATED >60 >60 ml/min/1.73m2 GFR EST IF >60 >60 ml/min/1.73m2 Narrative: Performed at [facility], [address] [place] [id number] Imaging: independently read by me CT head: 1. No acute abnormality. 2. Normal intracranial contents. 3. Right parietal craniotomy again identified. CXR: The heart is mildly enlarged. There is slight elevation of the right diaphragm which is old. The lung kc are clear. 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 Urinary Tract Infection with Sepsis - secondary to chronic green, no previous culture growths, will continue Zosyn and monitor. Headache - resolved, presents with global headache. CT head without acute findings. Neurogenic bowel/bladder - with indwelling catheter and colostomy History of LE deep vein thrombosis with IVC filter - on coumadin. INR goal 2.0- 2.5, follows with and in a coumadin clinic near his home. INR 2.5 on arrival. PharmD to dose coumadin while here. Subdural hematoma - s/p open right frontoparietal craniotomy for evacuation of hematoma performed on07/28/[address] Cooper Shelley. 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 Dyslipidemia - continue atorvastatin Anxiety - continue ativan prn FEN - regular prophylaxis - on coumadin CODE STATUS - full Brown Blanton MD [facility] Pager: [phone] This document serves as a record of services personally performed by Brown Blanton MD. It was created on his behalf by Opal Ontiveros, a trained medical office specialist. The creation of this record is based on the scribe's personal observations and the provider's statements to her. The document has been checked and approved by the attending provider. RIALS PLANNING MANAGER documented in this encounter ED Notes Lorri Banks RN - 10/20/2014 5:24 PM CST Bilateral LE edema noted, increased slightly on left left, pedal pulses palpable. Report called to Elise PADILLA. Will change pt's urine bag and remove pj pants prior to admisission RIALS PLANNING MANAGER Lorri Banks RN - 10/20/2014 4:47 PM CST Pt repositioned in bed, urine bag emptied 950ml. Pt given lunch and juice, continues to wait for admission. RIALS PLANNING MANAGER Lorri Banks RN - 10/20/2014 4:28 PM CST Report from VALERIE Borges. C/o lower back pain. Aware of pending admission. RIALS PLANNING MANAGER Ivette Turpin RN - 10/20/2014 4:15 PM CST Report given to VALERIE Blackmon. RIALS PLANNING MANAGER Paz Barba RN - 10/20/2014 3:35 PM CST Admission pending. Vitals stable. Pain tolerable. Family at bedside. ABX infusing. Report given to Ivette PADILLA RIALS PLANNING MANAGER Jayna Covarrubias PA-C - 10/20/2014 3:07 PM CST [facility] Emergency Department Sign Out Note Transfer of care from Dr. Gallagher. See separate Emergency Department note. The patient was evaluated by the previous provider for headache, transfer from [facility] secondary to CT not working. Reports fever of 102 at home. PMH of brain tumor, paraplegia, SDH treated with craniotomy. On Coumadin secondary to DVT. Plan for admission for further evaluation and treatment. Workup Completed: Head CT negative. INR 2.5, WBC 14, plts 138; chem 8 wnl; CXR negative. Treated with Zosyn and Vancomycin. Workup Pending (follow-up): UA positive for infection. Disposition: Admitted without incident. RIALS PLANNING MANAGER Boy Nevarez MD - 10/20/2014 12:31 PM CST [facility] Emergency Department Attending Supervision Note I performed the lee elements of history and exam, and agree with resident's findings and plan of care as discussed with Tom Gallagher. I have reviewed and agreed with the PMH, FH, SOC, ROS. Please see today's note by resident physician. 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 HR persistently elevated > 100 Combined with temp elevation this am, concerned for evolving sepsis Blood cx and IV abx added Anticipate admission for continued monitoring and cares Plan: Planned Disposition: inpatient admission Author: Boy Nevarez MD RIALS PLANNING MANAGER Paz Barba RN - 10/20/2014 11:15 AM CST Patient was transferred from [facility] in [place]. Patient has hx of SDH onset of headache and dizziness 12 hours prior to arrival at [facility]. Patient is on coumadin. CT scanner was down at [facility]. Patient was given Fentanyl 50 mcg X 2 in route. Patient has a green, colostomy, and paraplegia. RIALS PLANNING MANAGER Philly Yanes RN - 10/20/2014 9:33 AM CST Nurse report agrees with MD report RIALS PLANNING MANAGER Brown Souza MD - 10/20/2014 9:21 AM CST H/o tumor, paraplegia, SDH - on coumadin (INR 2.48) - severe MORAN this morning - neuro intact. Concerning for bleed - CT is not working. Coming from [place]. Brown Souza MD RIALS PLANNING MANAGER Tom Gallagher MD - 10/20/2014 12:00 AM CST DATE OF SERVICE: 10/20/2014 CHIEF COMPLAINT: Headache. HISTORY OF PRESENT ILLNESS: This is a 69-year-old gentleman with extensive past medical history including a history of bacterial meningitis, DVT, hypertension, subdural hemorrhage status post crani in July, as well as blood clots currently on Coumadin who presents with worsening headache since yesterday evening. Patient states yesterday evening went to bed with mild, diffuse headache that, upon awakening, had been exacerbated. Patient denies any additional vision changes, focal numbness, weakness or tingling that is new, though he is insensate and loss of motor function below T4-T5. This is due to a prior tumor of the spinal cord. The patient denies any significant chills, sweats, cough, congestion, though he does report subjective fever this morning. Patient was seen at [facility] and due to the headache with coumadinization and spontaneous subdural hemorrhage in the past, was sent here for further evaluation and management as their CT system was down. Patient arrives with stable hemodynamics and, per medics, received 100 mg of fentanyl en route for headache. Patient's GCS is 15, alert, oriented and with stable hemodynamics on arrival. No additional or new complaints. The headache does persist. No neck pain or meningismus is noted. PAST MEDICAL HISTORY, SURGICAL HISTORY, SOCIAL HISTORY, FAMILY HISTORY, MEDICATIONS AND ALLERGIES: Reviewed in Epic chart. REVIEW OF SYSTEMS: 10-point review of systems negative with the exception of that noted in the HPI. PHYSICAL EXAMINATION: Vital Signs: Filed Vitals: 10/21/14 0211 10/21/14 0411 10/21/14 0708 10/21/14 0716 BP: 144/69 161/86 Pulse: 107 101 Temp: 99.2 ??F (37.3 ??C) 99.2 ??F (37.3 ??C) TempSrc: Oral Oral Resp: 16 Height: Weight: 112.492 kg (248 lb) SpO2: 97% General: Patient is alert, awake, lying in bed, appears in no significant distress. HEENT: Pupils equal, round, reactive to light. Extraocular movements are intact. Normocephalic, atraumatic. No basal skull fracture signs. No raccoon eyes. No hemotympanum. Neck: No LAD. No JVD. Full range of motion. No meningismus. No point tenderness. Cardiac: Regular rate and rhythm. No rubs, murmurs, or gallops. Normal S1, S2. Pulmonary: Clear to auscultation bilaterally. No rales, rhonchi, or wheezes appreciable. Good air entry globally. Abdomen: Soft, nontender, nondistended. No masses appreciable. Extremities: No focal findings. Mild bilateral peripheral edema. Insensate below the level of T4-T5 with no motor function and flaccid paralysis that is per baseline. Neuro: Cranial nerves II through XII grossly symmetric and intact. Motor and sensory function grossly 5 out of 5 and normal in the upper extremities bilaterally with no focal abnormalities noted. 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 MEDICAL DECISION MAKING: This is a 69-year-old gentleman with a significant past medical history most pertinent for prior subdural hemorrhage, status post craniotomy in July, as well as DVTs currently on Coumadin, who presents to the emergency department today with acute headache and fever. Nursing note and vital signs reviewed upon arrival to the ED notedly within acceptable range and afebrile without tachycardia, though mildly tachycardic to 105 on arrival. 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 Patient with concern for spontaneousintracranial hemorrhage given the coumadinization, and now with severe headache and history of similar. Patient was sent for CT scan promptly from the ED which was notably stable without evidence for acute bleeding. The patient returned to the emergency department, was given IV fluids as well as IV analgesics for his headache, and basic laboratory evaluation was obtained and does reveal leukocytosis at 13.7. BMP is otherwise without significant derangements from baseline. UA was obtained and is pending at this time. INR was notably therapeutic at 2.5 and no emergent need for reversal at present. Given underlying continued concern for occult infectious etiologies in the setting of chronically ill patient with hemiparesis and chronic indwelling Green catheter, did opt to give the patient vancomycin and Zosyn for broad antibiotic coverage and will be admitting for further observation in the hospital. Patient was given IV fluids and antipyretics and remained without fevers throughout his ED course and with improved tachycardia from 100s down to 80s. Patient is signed out to the admitting team with plan to follow up for UA and continued observation through the night. Patient is otherwise stableat the time of sign- out to the evening team pending transfer to the floor. DIAGNOSES: Fever. Headache. Paraplegia. DISPOSITION: Admit for observation. Tom Gallagher MD Staff: MD SULEMAN Butts:hailey Dictated: 10/20/2014 16:05:58 Transcribed: 10/20/2014 16:19:44 Job: [id number] Doc: [id number] cc: RIALS PLANNING MANAGER documented in this encounter Plan of Treatment Scheduled Referrals Name Type Priority Associated Diagnoses Order S chedule Follow up with your Referral Routine Ordered: 10/21/2014 primary care physician documented as of this encounter Procedures Procedure Name Priority Date/Time Associated Comments Diagnosis BASIC METABOLIC PANEL Routine 10/21/2014 5:20 AM Results for this MATERIALS PLANNING MANAGER procedure are i n the results section. COMPLETE BLOOD COUNT-NO Routine 10/21/2014 5:20 AM Results for this DIFF MATERIALS PLANNING MANAGER procedure are i n the results section. MAGNESIUM Routine 10/21/2014 5:20 AM Results f or this MATERIALS PLANNING MANAGER procedure are i n the results section. PHOSPHORUS Routine 10/21/2014 5:20 AM Results f or this MATERIALS PLANNING MANAGER procedure are i n the results section. INR/PROTIME Routine 10/21/2014 5:20 AM Results f or this MATERIALS PLANNING MANAGER procedure are i n the results section. URINE CULTURE Routine 10/20/2014 2:50 PM Results for this MATERIALS PLANNING MANAGER procedure are i n the results section. UA CONDITIONAL UC STAT 10/20/2014 2:50 PM Resu lts for this MATERIALS PLANNING MANAGER procedure are i n the results section. XR PORTABLE CHEST 1 STAT 10/20/2014 2:21 PM Re sults for this VIEW MATERIALS PLANNING MANAGER procedure are i n the results section. BB HOLD TUBE ([facility] Routine 10/20/2014 11:34 Re sults for this ONLY) AM MATERIALS PLANNING MANAGER procedure are i n the results section. BASIC METABOLIC PANEL STAT 10/20/2014 11:34 Re sults for this AM MATERIALS PLANNING MANAGER procedure are i n the results section. APTT (ACTIVATED PARTIAL STAT 10/20/2014 11:34 Results for this THROMBOPLASTIN TIME AM MATERIALS PLANNING MANAGER procedur e are in the results section. COMPLETE BLOOD COUNT-NO STAT 10/20/2014 11:34 Results for this DIFF AM MATERIALS PLANNING MANAGER procedure are i n the results section. INR/PROTIME STAT 10/20/2014 11:34 Results for this AM MATERIALS PLANNING MANAGER procedure are i n the results section. CT HEAD WO IV CONT STAT 10/20/2014 11:32 Resul ts for this AM MATERIALS PLANNING MANAGER procedure are i n the results section. documented in this encounter Results (ABNORMAL) INR/PROTIME (10/21/2014 5:20 AM MATERIALS PLANNING MANAGER) P athologist Signature Protime 26.9 (H) 12.0 - 14.5 [facility] INR 2.5 (H) 0.9 - 1.1 [facility] Specimen Anatomical Collection Method Collection Time Receive d Time (Source) Location / / Volume Laterality 10/21/2014 5:20 AM 4 5:21 MATERIALS PLANNING MANAGER AM MATERIALS PLANNING MANAGER Narrative [facility] - 10/21/2014 5:39 AM CS T Performed at [facility] , [address] [place] [id number] Brown Blanton MD LAB_1 Performing Organization Address City/State/ZIP Code Phon e Number [id number] [address] Phosphorus (10/21/2014 5:20 AM MATERIALS PLANNING MANAGER) athologist Signature Phosphorus 3.9 2.5 - 4.5 [facility] mg/dl [facility] Specimen Anatomical Collection Method Collection Time Receive d Time (Source) Location / / Volume Laterality 10/21/2014 5:20 AM 4 5:21 MATERIALS PLANNING MANAGER AM MATERIALS PLANNING MANAGER [facility] - 10/21/2014 5:41 AM CS T Performed at [facility] , [address] [place] [id number] Brown Blanton MD LAB_1 Performing Organization Address City/[facility]/ZIP [facility] Phon e Number [address] [address] Magnesium (10/21/2014 5:20 AM MATERIALS PLANNING MANAGER) athologist Signature Magnesium 1.7 1.6 - 2.3 [facility] mg/dl [facility] Specimen Anatomical Collection Method Collection Time Receive d Time (Source) Location / / Volume Laterality 10/21/2014 5:20 AM 4 5:21 MATERIALS PLANNING MANAGER AM MATERIALS PLANNING MANAGER [facility] - 10/21/2014 5:41 AM CS T Performed at [facility] , [address] [place] [address] Brown Blanton MD LAB_1 Performing Organization Address City/State/ZIP Code Phon e Number [id number] [address] Basic Metabolic Panel (K, Na, CO2, Cl, Gluc, BUN, Creat, Ca) (Chem 8) (10/21/2014 5:20 AM MATERIALS PLANNING MANAGER) athologist Signature Sodium 142 135 - 145 [facility] mmol/L [facility] Potassium 4.0 3.5 - 5.3 [facility] mmol/L [facility] Chloride 105 95 - 106 [facility] mmol/L [facility] CO2 26 22 - 30 [facility] mmol/L [facility] Anion Gap 11 7 - 16 [facility] (calc.) mmol/L [facility] Glucose 108 70 - 180 [facility] mg/dl [facility] Calcium 8.8 8.4 - 10.2 [facility] mg/dl [facility] BUN 11 7 - 20 [facility] mg/dl [facility] Creatinine 0.93 0.66 - [facility] 1.25 mg/dl [facility]ITAL GFR, Estimated >60 >60 [facility] ml/min/1.7 [facility] 3m2 GFR, Est., If >60 >60 [facility] Black ml/min/1.7 [facility] 3m2 Specimen Anatomical Collection Method Collection Time Receive d Time (Source) Location / / Volume Laterality 10/21/2014 5:20 AM 4 5:21 MATERIALS PLANNING MANAGER AM MATERIALS PLANNING MANAGER [facility] - 10/21/2014 5:41 AM CS T Performed at [facility] , [address] [place] [id number] Brown Blanton MD LAB_1 Performing Organization Address [facility] Phon e Number [address] [id number] (ABNORMAL) CBC with platelets (10/21/2014 5:20 AM MATERIALS PLANNING MANAGER) P athologist Signature WBC 11.1 (H) 4.0 - 11.0 [facility] RBC 3.82 (L) 4.5 - 5.9 [facility] Hemoglobin 11.5 (L) 13.5 - 17.5 [facility] g/dl [facility] HCT 35.0 (L) 41.0 - 53.0 [facility] MCV 91.6 80 - [address] [facility] MCH 30.1 26 - [address] [facility] MCHC 32.9 32 - 36 [facility] g/dl [facility] RDW 14.0 11.5 - 14.5 [facility] Platelets 120 (L) 150 - 450 [facility] MPV 10.2 9.4 - 12.4 [facility] Specimen Anatomical Collection Method Collection Time Receive d Time (Source) Location / / Volume Laterality 10/21/2014 5:20 AM 4 5:21 MATERIALS PLANNING MANAGER AM MATERIALS PLANNING MANAGER Narrative [facility] - 10/21/2014 5:28 AM CS T Performed at [facility] , [address] [place] [id number] Brown Blanton MD LAB_1 Performing Organization Address [facility] Phon e Number [phone] [address] URINE CULTURE (10/20/2014 2:50 PM MATERIALS PLANNING MANAGER) Component Value Ref Test Analysis Performed At [facility] Range Method Time Signature Specimen Urine [facility] Description [facility] Special Unspecified [facility] Requests [facility]OSPITAL Culture > 100,000 col/ml [facility] Enterobacter HOSPITAL cloacae Culture > 100,000 col/ml [facility] Enterococcus HOSPITAL species Report Status Final 10/23/2014 [facility] Organism > 100,000 col/ml [facility] Enterobacter [facility]OSPITAL cloacae Organism > 100,000 col/ml [facility] Enterococcus HOSPITAL species Specimen Anatomical Collection Method Collection Time Receive d Time (Source) Location / / Volume Laterality 10/20/2014 2:50 PM 4 4:02 MATERIALS PLANNING MANAGER PM MATERIALS PLANNING MANAGER Narrative [facility] - 10/23/2014 2:03 PM CS T Performed at [facility] , [address] [place] [id number] Organism Antibiotic Method Susceptibility > 100,000 col/ml Cefazolin RH ROCHELLE >=64 enterobacter cloacae Resistant Isolates suscept ible to Cefazolin are al so susceptible to C ephadroxil and Cephalexin. Resistant > 100,000 col/ml Ceftazidime RH ROCHELLE <=1 enterobacter cloacae Susceptible SUSCEPTIBLE > 100,000 col/ml Ceftriaxone RH ROCHELLE <=1 enterobacter cloacae Susceptible SUSCEPTIBLE > 100,000 col/ml Ciprofloxacin RH ROCHELLE <=0.25 enterobacter cloacae Susceptible SUSCEPTIBLE > 100,000 col/ml Gentamicin RH ROCHELLE <=1 enterobacter cloacae Susceptible SUSCEPTIBLE > 100,000 col/ml Levofloxacin RH ROCHELLE <=0.12 enterobacter cloacae Susceptible SUSCEPTIBLE > 100,000 col/ml Meropenem RH RCOHELLE <=0.25 enterobacter cloacae Susceptible SUSCEPTIBLE > 100,000 col/ml Nitrofurantoin RH ROCHELLE 128 enterobacter cloacae Resistant Limited to use i n lower urinary tract in fections. Do not use in patie nts with Creatinine Clearance less than 60 ml/ min. Resistant > 100,000 col/ml Piper/tazobactam RH ROCHELLE 8 enterobacter cloacae Susceptible SUSCEPTIBLE > 100,000 col/ml Trimeth/Sulfa RH ROCHELLE >=320 enterobacter cloacae Resistant Resistant > 100,000 col/ml Ampicillin RH ROCHELLE Resistant enterobacter cloacae Predicts Ac tivity of Amoxicillin Resistant > 100,000 col/ml Ampicillin/Sulbactam RH ROCHELLE Resistant enterobacter cloacae > 100,000 col/ml Ampicillin RH ROCHELLE <=2 enterococcus species Susceptible Predicts Activit y of Amoxicillin SUSCEPTIBLE > 100,000 col/ml Levofloxacin RH ROCHELLE 1 enterococcus species Susceptible SUSCEPTIBLE > 100,000 col/ml Nitrofurantoin RH ROCHELLE <=16 enterococcus species Susceptible Limited to use i n lower urinary tract in fections. Do not use in patie nts with Creatinine Clearance less than 60 ml/ min. SUSCEPTIBLE > 100,000 col/ml Tetracycline RH ROCHELLE <=1 enterococcus species Susceptible Susceptible impl ies susceptibility t o Doxycycline and Minocycline SUSCEPTIBLE > 100,000 col/ml Vancomycin RH ROCHELLE 1 enterococcus species Susceptible Enterococci are clinically resistant to aminoglycosides, cephalosporin s, Clindamycin and Trimethoprim/Sul famethoxaxole SUSCEPTIBLE Boy Nevarez MD LAB_1 Performing Organization Address City/State/ZIP Code Phon e Number [id number] [address] (ABNORMAL) UA CONDITIONAL UC (10/20/2014 2:50 PM MATERIALS PLANNING MANAGER) [facility] Method Time Signature Urine Color Yellow [facility] Urine Clarity Hazy [facility] HOSPITAL Specific 1.009 1.005 - [facility] [place],Ur 1.030 HOSPITAL pH, Urine 6.0 4.5 - 8.0 [facility] Protein, Urine 30 (A) NEG mg/dl [facility] Glucose, Urine Negative NEG mg/dl [facility] Ketones, Urine Negative NEG mg/dl [facility] Urobil, Urine <2.0 <2.0 [facility] mg/dl [facility] Bilirubin, Negative NEG [facility] Urine [facility] Blood, Urine Moderate NEG [facility] (A) [facility] Nitrite, Urine Negative NEG [facility] Leukocyte Large (A) NEG [facility] Est., Ur [facility]OSPITAL RBC'S <1 0 - 3 [facility] /hpf [facility]OSPITAL WBC'S 542 (H) 0 - 5 [facility] /hpf [facility]ITAL WBC Clumps Present (A) NEG [facility] Bact Many [facility] Crystals, Present [facility] Amorphous HOSPITAL Specimen Anatomical Collection Method Collection Time Receive d Time (Source) Location / / Volume Laterality Urine specimen 10/20/2014 2:50 PM 014 3:16 (specimen) MATERIALS PLANNING MANAGER PM MATERIALS PLANNING MANAGER Narrative [facility] - 10/20/2014 3:38 PM CS T [facility] at [facility] [facility] , [address] [place] [id number] Boy Nevarez MD LAB_1 Performing Organization Address City/[facility] Phon e Number [address] [address] XR PORTABLE CHEST 1 VIEW (10/20/2014 2:21 PM MATERIALS PLANNING MANAGER) Anatomical Region Laterality Modality Chest, Lung Computed Radiography Specimen (Source) Anatomical Collection Method Collection Time Re ceived Time Location / / Volume Laterality 10/20/2014 2:21 PM MATERIALS PLANNING MANAGER Narrative 10/20/2014 2:26 PM MATERIALS PLANNING MANAGER XR PORT CHEST 1 VW 10/20/2014 2:21 [...] the spine. Boy Nevarez MD RAD PORTABLE BB HOLD TUBE ([facility] ONLY) (10/20/2014 11:34 AM MATERIALS PLANNING MANAGER) Patholo gist Method Time Signature BB Hold Tube Blood Bank [facility] expires in 3 days Specimen Anatomical Collection Method Collection Time Receive d Time (Source) Location / / Volume Laterality 10/20/2014 11:34 10/20/2014 AM MATERIALS PLANNING MANAGER 11:54 AM MATERIALS PLANNING MANAGER Narrative [facility] - 10/20/2014 11:[address] Performed at [facility] , [address] [place] [id number] Boy Nevarez MD LAB_1 Performing Organization Address City/[facility] Phon e Number [id number] [address] Basic Metabolic Panel (10/20/2014 11:34 AM MATERIALS PLANNING MANAGER) P athologist Signature Sodium 140 135 - 145 [facility] mmol/L HOSPITAL Potassium 3.9 3.5 - 5.3 [facility] mmol/L [facility]OSPITAL Chloride 100 95 - 106 [facility] mmol/L [facility] CO2 29 22 - 30 [facility] mmol/L [facility] Anion Gap 11 7 - 16 [facility] (calc.) mmol/L [facility] Glucose 109 70 - 180 [facility] mg/dl HOSPITAL Calcium 8.4 8.4 - 10.2 [facility] mg/dl [facility]OSPITAL BUN 15 7 - 20 [facility] mg/dl HOSPITAL Creatinine 0.91 0.66 - [facility] 1.25 mg/dl [facility]OSPITAL GFR, Estimated >60 >60 [facility] ml/min/1.7 [facility] 3m2 GFR, Est., If >[address] [facility] Black ml/min/1.7 [facility] 3m2 Specimen Anatomical Collection Method Collection Time Receive d Time (Source) Location / / Volume Laterality 10/20/2014 11:34 10/20/2014 AM MATERIALS PLANNING MANAGER 11:53 AM MATERIALS PLANNING MANAGER Narrative [facility] - 10/20/2014 12:[address] Performed at [facility] , [address] [place] [id number] Boy Nevarez MD LAB_1 Performing Organization Address City/State/ZIP Code Phon e Number [address] [address] (ABNORMAL) HEMOGRAM/PLTS (10/20/2014 11:34 AM MATERIALS PLANNING MANAGER) athologist Signature WBC 13.7 (H) 4.0 - 11.0 [facility] RBC 3.82 (L) 4.5 - 5.9 [facility] Hemoglobin 11.6 (L) 13.5 - 17.5 [facility] g/dl [facility] HCT 34.9 (L) 41.0 - 53.0 [facility] MCV 91.4 80 - [address] [facility] MCH 30.4 26 - [address] [facility] MCHC 33.2 32 - 36 [facility] g/dl [facility] RDW 13.9 11.5 - 14.5 [facility] Platelets 138 (L) 150 - 450 [facility] MPV 10.3 9.4 - 12.4 [facility] Specimen Anatomical Collection Method Collection Time Receive d Time (Source) Location / / Volume Laterality 10/20/2014 11:34 10/20/2014 AM MATERIALS PLANNING MANAGER 11:53 AM MATERIALS PLANNING MANAGER Narrative [facility] - 10/20/2014 12:[address] Performed at [facility] , [address] [place] [id number] Boy Nevarez MD LAB_1 Performing Organization Address City/[facility]/ZIP [facility] Phon e Number [address] [address] (ABNORMAL) APTT (ACTIVATED PARTIAL THROMBOPLASTIN TIME (10/20/2014 11:34 AM MATERIALS PLANNING MANAGER) P athologist Signature PTT 54.4 (H) 24.0 - 37.0 [facility]OSPITAL Specimen Anatomical Collection Method Collection Time Receive d Time (Source) Location / / Volume Laterality 10/20/2014 11:34 10/20/2014 AM MATERIALS PLANNING MANAGER 11:53 AM MATERIALS PLANNING MANAGER Narrative [facility] - 10/20/2014 12:[address] Performed at [facility] , [address] [place] [id number] Boy Nevarez MD LAB_1 Performing Organization Address City/[facility]/ZIP Code Phon e Number [address] [address] (ABNORMAL) INR/PROTIME (10/20/2014 11:34 AM MATERIALS PLANNING MANAGER) P athologist Signature Protime 27.0 (H) 12.0 - 14.5 [facility] INR 2.5 (H) 0.9 - 1.1 [facility] Specimen Anatomical Collection Method Collection Time Receive d Time (Source) Location / / Volume Laterality 10/20/2014 11:34 10/20/2014 AM MATERIALS PLANNING MANAGER 11:53 AM MATERIALS PLANNING MANAGER Narrative [facility] - 10/20/2014 12:[address] Performed at [facility] , [address] [place] [address] Boy Nevarez MD LAB_1 Performing Organization Address City/[facility] Phon e Number [address] [address] [address] HEAD WITHOUT CONTRAST (10/20/2014 11:32 AM MATERIALS PLANNING MANAGER) Anatomical Region Laterality Modality Head Computed Tomography Specimen (Source) Anatomical Collection Method Collection Time Re ceived Time Location / / Volume Laterality 10/20/2014 11:32 AM MATERIALS PLANNING MANAGER Narrative 10/20/2014 11:52 AM MATERIALS PLANNING MANAGER HEAD CT WITHOUT IV CONTRAST 10/20/2014 11:32 AM INDICATION: Headache. Anticoagulation th erapy. TECHNIQUE: Head CT without IV contrast. COMPARISON: Head CT 10/20/2014 FINDINGS: No midline shift. Normal ventr icles and sulci. Normal parenchymal density. No intracranial hemorrhage. St atus post right frontoparietal craniotomy. Grossly normal orbits. No pa ranasal sinus or mastoid inflammation. CONCLUSION: 1. ??No acute abnormality. 2. ??Normal intracranial contents. 3. ??Right parietal craniotomy again kristin ntified. Procedure Note Riki Eng MD - 10/20/2014Formattin g of this note might be different from the original. HEAD CT WITHOUT IV CONTRAST 10/20/2014 11:32 AM INDICATION: Headache. Anticoagulation th erapy. TECHNIQUE: Head CT without IV contrast. COMPARISON: Head CT 10/20/2014 FINDINGS: No midline shift. Normal ventr icles and sulci. Normal parenchymal density. No intracranial hemorrhage. St atus post right frontoparietal craniotomy. Grossly normal orbits. No pa ranasal sinus or mastoid inflammation. CONCLUSION: 1. No acute abnormality. 2. Normal intracranial contents. 3. Right parietal craniotomy again ident ified. Boy Nevarez MD RAD CT documented in this encounter Visit Diagnoses Diagnosis Fever - Primary Fever, unspecified Headache Sepsis (HRC) DVT (deep venous thrombosis), unspecifie d laterality Neurogenic bladder Neurogenic bladder, NOS Paraplegia (HRC) Paraplegia UTI (lower urinary tract infection) Urinary tract infection, site not specif ied Back pain Backache, unspecified Osteoporosis (HRC) Osteoporosis, unspecified Hyperparathyroidism (HRC) Hyperparathyroidism, unspecified Vitamin D deficiency (HRC) Unspecified vitamin D deficiency Tachycardia, unspecified penitentiary (current) use of anticoagulant s Long-term (current) use of anticoagulant s Personal history of venous thrombosis an d embolism Plan of Care - Tamir Mathur RN - 10/21/2014 12:18 PM CST [facility] Discharge Note - Nursing Admission Date/Time: 10/20/2014 11:05 AM Attending MD: Brown Blanton MD Patient discharged: to Home. Discharge Date: 10/21/2014 Discharge Time: 1235 Patient accompanied by: spouse. Transported by: Wheelchair Valuables were taken home by patient: Yes Discharge instructions given and explained to patient: Yes Discharge Patient Education Plan completed, taught, and provided to patient/caregiver at discharge: Yes ?? Discussed medication risks with patient ?? Patient understands medications usage and side effects ?? Patient understands diagnosis ?? Action Plan for management of symptoms/side effects/complications requiring medical attention established and shared with patient/caregiver Was patient discharged on Warfarin? {(Do not delete line; Warfarin documentation is required) Yes. Written education materials were provided regarding: Medication compliance education while on warfarintherapy. Follow-up monitoring. INR monitoring while on warfarin therapy. Patients general condition on discharge: BP 161/86 Pulse 101 Temp(Src) 99.2 ??F (37.3 ??C) (Oral) Resp 16 Ht 5' 9 (1.753 m) Wt 112.492 kg (248 lb) BMI 36.61 kg/m2 SpO2 97% Lungs sounds = all lobes = clear; equal bilaterally. Pt denies SOB, pain, dizziness or tingling. All medical devices (telemetry/IV/etc) unless otherwise ordered, have been removed and stored: Yes Report Completed by: Tamir Mathur RN --- End of Report --- RIALS PLANNING MANAGER Plan of Care - Marimar Tomas, PharmD - 10/21/2014 11:[address] [facility] Clinical Pharmacy Warfarin Consult Note Assessment: Jeff Cullen, [id number] is a 69 yr male currently receiving Warfarin for AFib/Aflutter. Goal INR range: 2 - 2.5. Zosyn was started yesterday and converted to levofloxacin today. INR 2.5. Recommendations/Plan: Given that INR is on high end of goal range and levofloxacin is being started, will reduce warfarin to 2.5mg/d Per P&T approved Pharmacy Warfarin Consult Policy. If patient discharges, recommend sending out on lower dose of 2.5mg/d and following INR daily to be sure INR doesn't become supratherapeutic given addition of levofloxacin. Pharmacy will order daily INR's until patient demonstrates anticoagulation stability with this admission. Dose adjustments will be made as needed. Please Note: Daily warfarin monitoring is documented in the Warfarin Doc Flowsheet and subsequent progress notes may only be written when dosage changes are due. Thank you for this consult, Marimar Tomas, PharmD Pager Number: [phone] Data: Weight: 248 lb (112.492 kg) Patient's Outpatient Warfarin Regimen: 5MG QMON, 7.5MG ROW New Warfarin Drug Interactions: LEVOFLOXACIN Bridge Therapy: None Recent Labs 10/20/14 1134 10/21/14 0520 INR 2.5* 2.5* HGB 11.6* 11.5* Patient Vitals for the past 168 hrs: Warfarin Dose (mg) Daily Review Indications Goal INR Range Bridge Therapy 10/21/14 0520 2.5 MG Reduce Dose DVT 2-2.5 None 10/20/14 1134 5 MG Reduce Dose DVT 2-2.5 Heparin IV drip --- End of Report --- RIALS PLANNING MANAGER Plan of Care - Tamir Mathur RN - 10/21/2014 11:[address] [facility] Plan of Care Note Assessment: Allergic reaction status Plan: monitor pt during admin of IV piperacillin-tazobactam, Benadryl 25-50 mg QID PRN for itching, rash. Subjective: 0900 pt stated, I'm having the same reaction I did earlier when given this antibiotic. I'm really itchy. Objective: Pt upper extremities, chest, neck and head, red and itchy. IV antibiotic finished. Gave Benadryl at 0915. Pt stated not itchy or red at 1000. --- End of Report --- RIALS PLANNING MANAGER Plan of Care - Paz Lowe RN - 10/21/2014 5:44 AM CST Problem: General Plan of Care Goal: Safety and Fall Prevention Outcome: Ongoing [facility] Plan of Care Note Assessment: fever Plan: IVF, IV abx, pain mgt Subjective: pt reports chronic back pain, managed with norco. Denies headache. Pt also requesting ativan for sleep this shift. Objective: Tmax overnight 101.5, down to 99.2 with norco. HR 100-110s. Able to sleep between care, refusing repositioning overnight stating that he sleeps on his right side. Green patent, good output. --- End of Report --- RIALS PLANNING MANAGER Plan of Care - Paz Lowe RN - 10/21/2014 2:[address] [facility]. MD Notified Note Name of MD notified: Dr. Bernstein Time of MD notification: 0100 hours and 55 minutes Reason: Temp 101.5, HR 100s. 2 tabs norco administered. Response: Maintenance IVF ordered, see MAR. Paz Lowe RN --- End of Report --- RIALS PLANNING MANAGER Plan of Care - Elise Bull RN - 10/20/2014 10:[address] [facility]. Notified Note Name of MD notified: Juany Time of MD notification: 1000 hours and 1 minute Reason: Pt has red spots on arms after giving Zosyn. Could we get an order for benadryl? Response: Benadryl ordered. Elise Bull RN --- End of Report --- RIALS PLANNING MANAGER Plan of Care - Linda Powell, PharmD - 10/20/2014 6:[address] [facility] Clinical Pharmacy Warfarin Consult Note Assessment: Jeff Cullen, [id number] is a 69 yr male currently receiving Warfarin for DVT. Goal INR range: 2 - 2.5. Recommendations/Plan: Per P&T approved Pharmacy Warfarin Consult Policy, this patient will be dosed with 5 mg of warfarin today. Reducing dose from home regimen as patient starting on antibiotics Pharmacy will order daily INR's until patient demonstrates anticoagulation stability with this admission. Dose adjustments will be made as needed. Please Note: Daily warfarin monitoring is documented in the Warfarin Doc Flowsheet and subsequent progress notes may only be written when dosage changes are due. Thank you for this consult, Linda Powell Pager Number: [phone] Data: Weight: 254 lb (115.214 kg) Patient's Outpatient Warfarin Regimen: 5mg q Mon, 7.5mg other days of week New Warfarin Drug Interactions: antibiotics Bridge Therapy: None Recent Labs 10/20/14 1134 INR 2.5* HGB 11.6* Patient Vitals for the past 168 hrs: Warfarin Dose (mg) Daily Review Indications Goal INR Range Bridge Therapy 10/20/14 1134 5 MG Reduce Dose DVT 2-2.5 Heparin IV drip --- End of Report --- RIALS PLANNING MANAGER Plan of Care - Ming Sandoval, PharmD - 10/20/2014 2:42 PM CST [facility] Pharmacy Medication History Note Outpatient Medication History: Outpatient Prescriptions Marked as Taking for the 10/20/14 encounter (Hospital Encounter) Medication Sig Note ??? atorvastatin (LIPITOR) 40 MG tablet Take 1 Tab by mouth daily. ??? baclofen (AKA LIORESAL) 20 MG tablet Take 2 Tabs by mouth three times a day. ??? buPROPion (AKA WELLBUTRIN SR) 150 MG 12 hour release tablet Take 150 mg by mouth two times a day. ??? Calcium Carbonate-Vitamin D (CALTRATE 600+D) 600-400 MG-UNIT Take 1 Tab by mouth two times a day. ??? cholecalciferol (AKA VITAMIN D3) 1000 UNIT tablet Take 2 Tabs by mouth daily. ??? DULoxetine (AKA CYMBALTA) 20 MG capsule Take 20 mg by mouth 4 times a day. ??? furosemide (AKA LASIX) 20 MG tablet Take 20 mg by mouth daily as needed. ??? gabapentin (AKA NEURONTIN) 400 MG capsule Take 1 Cap by mouth three times a day. ??? Generic Medication (COMPOUNDED CREAM) Apply 1-2 grams to the lower back TID prn. Ketamine 10%, boclofen 2%, gabapentin 6%, verapamil 6%. Apply to low back TID prn (Patient taking differently: Apply 1 grams to the lower back TID prn. Ketamine 10%, baclofen 2%, gabapentin 6%, verapamil 6%. Apply to low back TID prn) ??? HYDROcodone-acetaminophen (AKA NORCO) 5-325 MG tablet Take 1-2 Tabs by mouth every 4 hours as needed for Pain. ??? levETIRAcetam (AKA KEPPRA) 1000 MG tablet Take 1 Tab by mouth every 12 hours. Indications: seizure ppx ??? LORazepam (AKA ATIVAN) 0.5 MG tablet Take 0.5 mg by mouth every 4 hours as needed for Anxiety. ??? Multiple Vitamins-Minerals (CENTRUM SILVER OR) Take 1 Tab by mouth daily. ??? niacin 500 MG tablet Take 500 mg by mouth daily with breakfast. ??? polyethylene glycol (AKA MIRALAX) packet Take 17 g by mouth daily. (Patient taking differently: Take 17 g by mouth daily as needed.) ??? potassium chloride (KLOR-CON M20) 20 MEQ tablet Take 20 mEq by mouth daily. ??? trimethoprim (AKA TRIMPEX) 100 MG tablet Take 100 mg by mouth daily. ??? warfarin (AKA COUMADIN) 5 MG tablet Take 1 tablet (5mg) by mouth on Mondays and take 1.5 tablets(7.5mg) all other days of the week Indications: Blood Clot in a Deep Vein 10/20/2014: Patient statesthis medication was restarted in Aug Source for Medication History: Patient and hospital transfer sheet Discrepancies in Medication History: Added to medication list: 1. Warfarin 5mg - 5mg on Saturday and 7.5mg all other days of the week 2. Bupropion 150 SR bid 3. Sig/dose changes: 1. Duloxetine 20mg qid - previously was 4 cap qd 2. Lorazepam 0.5mg q4h prn - previously was tid prn Pharmacy (include contact number if available): Primary pharmacy is [facility] Allergy comments (include reaction if available): Oxycodone and Zaroxolyn verified Pneumococcal and Influenza Vaccine History: Immunization History Administered Date(s) Administered ??? Flu Vac (3+ yrs) 10/06/2009 ??? H1n1 Miv Csl 3+ Yr (Injected) 12/06/2009 ??? Pneumococcal, PPSV23 10/06/2009 Drug Interactions: There were no major drug interactions found in [facility] on the patient's home medication list. Compliance: None were identified. Educational needs: None were identified. Renal/Hepatic Dosage Considerations: None were identified. Care Team Notes: None were identified. This document completed by: Ming Sandoval, PharmD --- End of Report --- RIALS PLANNING MANAGER documented in this encounter Administered Medications Inactive Administered Medications - up to 3 most recent administrations Medication Order MAR Action Action Date Dose Rate Site acetaminophen (aka TYLENOL EXTRA Given 10/20/2014 1:18 PM MATERIALS PLANNING MANAGER 1, 000 mg STRENGTH) tablet 1,000 mg 1,000 mg, Oral, NOW, On Sat10/20/14 at 1301, For 1 dose atorvastatin (aka LIPITOR) tablet 40 mg Given 10/20/2014 7:30 PM MATERIALS PLANNING MANAGER 40 mg 40 mg, Oral, DAILY - 1999, First dose on Sat10/20/14 at 1999, Until Discontinued baclofen (aka LIORESAL) tablet 40 mg Given 10/21/2014 8:09 AM MATERIALS PLANNING MANAGER 40 mg 40 mg, Oral, TID, First dose on Sat10/20/14 at 2000, Until Discontinued Given 10/20/2014 7:29 PM MATERIALS PLANNING MANAGER 40 mg buPROPion (aka WELLBUTRIN SR) 12 hour release Given 8:09 AM MATERIALS PLANNING MANAGER 150 mg tablet 150 mg 150 mg, Oral, BID, First dose on Sat10/20/14 at 2000, Until Discontinued, Tablet should be swallowed whole. Caution:Look-alike, sound-alike medication. Given 10/20/2014 7:29 PM MATERIALS PLANNING MANAGER 150 mg calcium carbonate-vitamin D (aka OSCAL D) Given 10/20/2014 7 :30 PM MATERIALS PLANNING MANAGER 1 Tablet 500-200 MG-UNIT tablet 1 Tab 1 Tablet, Oral, BID, First dose on Sat10/20/14 at 2000, Until Discontinued cholecalciferol (aka VITAMIN D3) tablet Given 10/20/20 6:48 PM MATERIALS PLANNING MANAGER 2,000 Units TABS 2,000 Units 2,000 Units, Oral, DAILY, First dose on Sat10/20/14 at 1822, Until Discontinued diphenhydrAMINE (aka BENADRYL) caplet 25 -50 mg Given 10/21/2014 9:23 AM MATERIALS PLANNING MANAGER 50 mg 25-50 mg, Oral, QID PRN, Itching, Rash, Starting on Sat10/20/14 at 2212, Until Catalina 10/21/14 at 1447 Given 10/20/2014 10:27 PM MATERIALS PLANNING MANAGER 50 mg diphenhydrAMINE (aka BENADRYL) injection 50 mg Given 10/20/2014 1:27 PM MATERIALS PLANNING MANAGER 50 mg 50 mg, Intravenous, ONCE, On Sat10/20/14 at 1301, For 1 dose DULoxetine (aka CYMBALTA) delayed release Given 10/21/2014 11:53 AM MATERIALS PLANNING MANAGER 20 mg capsule 20 mg 20 mg, Oral, QID, First dose on Sat10/20/14 at 2000, Until Discontinued Given 10/21/2014 8:10 AM MATERIALS PLANNING MANAGER 20 mg Given 10/20/2014 7:30 PM MATERIALS PLANNING MANAGER 20 mg gabapentin (aka NEURONTIN) capsule 400 m g Given 10/21/2014 8:10 AM MATERIALS PLANNING MANAGER 400 mg 400 mg, Oral, TID, First dose on Sat10/20/14 at 2000, Until Discontinued Given 10/20/2014 7:29 PM MATERIALS PLANNING MANAGER 400 mg HYDROcodone-acetaminophen (aka NORCO) Given 10/21/2014 7:[address] 2 Tablets 5-325 MG tablet TABS 1-2 Tab 1-2 Tablet, Oral, Q4H PRN, Pain, Starting on Sat10/20/14 at 1821, Until Catalina 10/21/14 at 1447 Given 10/21/2014 1:44 AM MATERIALS PLANNING MANAGER 2 Tablets Given 10/20/2014 6:48 PM MATERIALS PLANNING MANAGER 2 Tablets levETIRAcetam (aka KEPPRA) tablet 1,000 mg Given 10/21/2014 8:10 AM MATERIALS PLANNING MANAGER 1,000 mg 1,000 mg, Oral, Q12H (NON-STND), First dose on Sat10/20/14 at 2000, Until Discontinued, Caution: Look-alike, sound-alike medication., Indications: seizure ppx Given 10/20/2014 7:30 PM MATERIALS PLANNING MANAGER 1,000 mg levoFLOXACIN (aka LEVAQUIN) tablet 500 m g Given 10/21/2014 11:53 AM MATERIALS PLANNING MANAGER 500 mg 500 mg, Oral, DAILY AT 10 AM, First dose on Sat10/21/14 at 1053, Do not give within 2 hours of calcium, iron, magnesium supplements or antacids. Hold enteral feedings 1 hour before and 1 hour after dose. NG/OGT: Crush immediate-release tablet and mix with water. LORazepam (aka ATIVAN) tablet 0.5 mg Given 10/21/2014 1:44 AM MATERIALS PLANNING MANAGER 0.5 mg 0.5 mg, Oral, Q4H PRN, Anxiety, Starting on Sat10/20/14 at 1821, Until Sat10/21/14 at 1447, Caution: Look-alike, sound-alike medication. metoCLOPRAMIDE (aka REGLAN) injection 10 mg Given 10/20/2014 1:33 PM MATERIALS PLANNING MANAGER 10 mg 10 mg, Intravenous, ONCE, On Sat10/20/14 at 1301, For 1 dose, Risk of tardive dyskinesia increases with higher doses or long durations of metoclopramide therapy. NaCl 0.9 % infusion 1,000 mL Started 10/20/2014 1:23 PM MATERIALS PLANNING MANAGER 1,000 mL 1,000 mL, Intravenous, ONCE, On Sat10/20/14 at 1301, For 1 dose, Bolus NaCl 0.9 % infusion Started 10/21/2014 2:40 AM MATERIALS PLANNING MANAGER 100 mL/hr Intravenous, at 100 mL/hr, CONTINUOUS, Starting on Sat10/21/14 at 0158 niacin tablet 500 mg Given 10/21/2014 8:09 AM MATERIALS PLANNING MANAGER 500 mg 500 mg, Oral, QDAY WITH MEAL, First dose on Sat10/20/14 at 1822, Until Discontinued, Give with food. Given 10/20/2014 7:30 PM MATERIALS PLANNING MANAGER 500 mg piperacillin-tazobactam (aka ZOSYN) 4.5 g in Started 08/2014 2:00 PM MATERIALS PLANNING MANAGER 4.5 g NaCl 0.9 % 100 mL IV piggyback 4.5 g, Intravenous, Administer over 30 Minutes, ONCE, On Sat10/20/14 at 1318, For 1 dose piperacillin-tazobactam (aka ZOSYN) 4.5 g in Started 09/2014 8:10 AM MATERIALS PLANNING MANAGER 4.5 g NaCl 0.9 % 100 mL IV piggyback 4.5 g, Intravenous, Administer over 30 Minutes, Q6H (NON-STND), First dose on Sat10/20/14 at 2000 Started 10/21/2014 2:40 AM MATERIALS PLANNING MANAGER 4.5 g Started 10/20/2014 8:31 PM MATERIALS PLANNING MANAGER 4.5 g polyethylene glycol (aka MIRALAX) oral Given 10/21/2014 8:09 AM MATERIALS PLANNING MANAGER 1 Packet powder 1 Packet 1 Packet (17 g), Oral, DAILY, First dose on Sat10/20/14 at 1822, Until Discontinued, Do not add to pre-thickened juices. Ok to add to liquid thickened with Thicken-Up. potassium chloride (aka K-DUR,KLOR-CON M) Given 10/21/2014 8:10 AM MATERIALS PLANNING MANAGER 20 mEq extended release tablet 20 mEq 20 mEq, Oral, DAILY, First dose on Sat10/20/14 at 1822, Do Not Chew or Crush Tablet.Tablet may be broken in half or made into a slurry by adding water. Given 10/20/2014 6:48 PM MATERIALS PLANNING MANAGER 20 mEq trimethoprim (aka TRIMPEX) tablet 100 mg Given 10/21/2014 8:23 AM MATERIALS PLANNING MANAGER 100 mg 100 mg, Oral, DAILY, First dose on Sat10/20/14 at 1822 vancomycin (aka VANCOCIN) 2,000 mg in Started 10/20/2014 2:[address] 2,000 mg NaCl 0.9 % 500 mL IV piggyback 2,000 mg, Intravenous, Administer over 2 Hours, ONCE, On Sat10/20/14 at 1318, For 1 dose warfarin (aka COUMADIN) tablet 5 mg Given 10/20/2014 6:48 PM MATERIALS PLANNING MANAGER 5 mg 5 mg, Oral, WARFARIN - DAILY, First dose on Sat10/20/14 at 1827, Until Discontinued, Hazardous waste disposal required Vitamin K antagonizes the effects of warfarin. Maintain consistent intake of vitamin K in the diet. documented in this encounter Active and Recently Administered Medications Times are shown in MATERIALS PLANNING MANAGER. Scheduled Medication Order 10/19/2014 10/20/2014 10/21/2014 acetaminophen (aka TYLENOL EXTRA STRENGTH) tablet 1,000 mg ( COMPLETED) 1318 (Given - Provider: Paz Barba RN) 1,000 mg, Oral, NOW, 1 dose, Sat10/20/14 at 1301 atorvastatin (aka LIPITOR) tablet 40 mg (CANCELED) 193 (Given - Provider: Elise Bull RN) 40 mg, Oral, STATIN - DAILY, First dose on Sat10/20/14 at 2000, Until Discontinued baclofen (aka LIORESAL) tablet 40 mg (CANCELED) 192 (Given - Provider: Elise Bull RN) 0809 (Given - Provider: Tamir alfaro RN) 40 mg, Oral, TID, First dose on Sat10/20/14 at 1999, Until Disc ontinued buPROPion (aka WELLBUTRIN SR) 12 hour release tablet 150 mg (CANCELED) 192 (Given - Provider: Elise Bull RN) 0809 (Given - Provider: Tamir alfaro RN) 150 mg, Oral, BID, First dose on Sat10/20/14 at 2000, Until Dis continued calcium carbonate-vitamin D (aka OSCAL D ) 500-200 MG-UNIT tablet 1 Tab (CANCELED) 193 (Given - Provider: Alejandro Pereira) 0800 (Refused - Provider: Tamir Mathur RN) 1 Tab, Oral, BID, First dose on Sat10/20/14 at 2000, Until Disc ontinued cholecalciferol (aka VITAMIN D3) tablet TABS 2,000 Units (CA NCELED) 1848 (Given - Provider: Elise Bull RN) 0800 (Refused - Provider: Tamir coronado RN) 2,000 Units, Oral, DAILY, First dose on Sat10/20/14 at 1822, Until Discontinued diphenhydrAMINE (aka BENADRYL) injection 50 mg (COMPLETED) 1327 (Given - Provider: Paz Barba RN) 50 mg, IV, ONCE, 1 dose, Sat10/20/14 at 1301 DULoxetine (aka CYMBALTA) delayed release capsule 20 mg (CAN CELED) 193 (Given - Provider: Elise Bull RN) 0810 (Given - Provider: Tamir alfaro RN)1153 (Given - Provider: Tamir Mathur RN) 20 mg, Oral, QID, First dose on Sat10/20/14 at 1999, Until Disc ontinued gabapentin (aka NEURONTIN) capsule 400 mg (CANCELED) 1928 (Given - Provider: Elise Bull RN) 0810 (Given - Provider: Tamir alfaro RN) 400 mg, Oral, TID, First dose on Sat10/20/14 at 1999, Until Dis continued levETIRAcetam (aka KEPPRA) tablet 1,000 mg (CANCELED) 1929 (Given - Provider: Elise Bull RN) 0810 (Given - Provider: Tamir alfaro RN) 1,000 mg, Oral, Q12H (NON-STND), First d ose on Sat10/20/14 at 1999, Until Discontinued, Indications: seizure ppx levoFLOXACIN (aka LEVAQUIN) tablet 500 mg 115 (Given - Provider: Tamir Mathur RN) 500 mg, Oral, DAILY AT 10 AM, First dose on Sat10/21/14 at 1053, Until Discontinued metoCLOPRAMIDE (aka REGLAN) injection 10 mg (COMPLETED) 1333 (Given - Provider: Paz Barba RN) 10 mg, IV, ONCE, 1 dose, Sat10/20/14 at 1301 NaCl 0.9 % infusion 1,000 mL (COMPLETED) 1323 (Started - Provider: Paz Barba RN) 1,000 mL, IV, ONCE, 1 dose, Sat10/20/14 at 1301 niacin tablet 500 mg (CANCELED) 1929 (Given - Pr ovider: Elise Bull RN) 0809 (Given - Provider: Tamir Mathur RN) 500 mg, Oral, QDAY WITH MEAL, First dose on Sat10/20/14 at 1822, Until Discontinued piperacillin-tazobactam (aka ZOSYN) 4.5 g in NaCl 0.9 % 100 mL IV piggyback (COMPLETED) 1400 (Started - Provider: Wood Barba RN)1445 (Infused - Provider: Paz Barba RN) 4.5 g, Intravenous, Administer over 30 M inutes, ONCE, On Sat10/20/14 at 1318, For 1 dose piperacillin-tazobactam (aka ZOSYN) 4.5 g in NaCl 0.9 % 100 mL IV piggyback (CANCELED) 2030 (Started - Provider: Elise Bull RN) 0240 (Started - Provider: Paz Lowe, VALERIE)0810 (Started - Provider: Tamir Mathur, VALERIE) 4.5 g, IV, Q6H (NON-STND), First dose on Sat10/20/14 at 2000, Until Discontinued polyethylene glycol (aka MIRALAX) oral powder 1 Packet (CANC ELED) 1821 (Refused - Provider: Elise Bull RN) 0809 (Given - Provider: Tamir alfaro RN) 1 Packet (17 g), Oral, DAILY, First dose on Sat10/20/14 at 1822, Until Discontinued potassium chloride (aka K-DUR,KLOR-CON M ) extended release tablet 20 mEq (CANCELED) 184 (Given - Provider: Alejandro Pereira) 0810 (Given - Provider: Tamir Mathur, VALERIE) 20 mEq, Oral, DAILY, First dose on Sat10/20/14 at 1822, Until D iscontinued trimethoprim (aka TRIMPEX) tablet 100 mg (CANCELED) 1821 (Already Given - Provider: Elise Bull RN - Reason: Patient Took at Home) 0823 (Given - Provider: Tamir Mathur, VALERIE) 100 mg, Oral, DAILY, First dose on Sat10/20/14 at 1822, Until D iscontinued vancomycin (aka VANCOCIN) 2,000 mg in Na Cl 0.9 % 500 mL IV piggyback (COMPLETED) 1446 (Started - Provider: Wood Barba RN)1646 (Infused - Provider: Paz Lowe RN)1700 (Infused - Provider: Elise Bull RN) 2,000 mg, Intravenous, Administer over 2 Hours, ONCE, On Sat10/20/14 at 1318, For 1 dose warfarin (aka COUMADIN) tablet 5 mg (CANCELED) 1848 (Given - Provider: Elise Bull RN) 5 mg, Oral, WARFARIN - DAILY, First dose on Sat10/20/14 at 1827, Until Discontinued Continuous Medication Order 10/19/2014 10/20/2014 10/21/2014 NaCl 0.9 % infusion (CANCELED) 0 240 (Started - Provider: Paz Lowe RN) at 100 mL/hr, IV, CONTINUOUS, Starting [place] 10/21/14 at 0158, Until Discontinued PRN Medication Order 10/19/2014 10/20/2014 10/21/2014 diphenhydrAMINE (aka BENADRYL) caplet 25-50 mg (CANCELED) 2227 (Given - Provider: Elise Bull RN) 0923 (Given - Provider: Tamir alfaro RN) 25-50 mg, Oral, QID PRN, Starting Sat at 2212, Until Discontinued, Itching, Rash HYDROcodone-acetaminophen (aka NORCO) 5-325 MG tablet TABS 1 -2 Tab (CANCELED) 1848 (Given - Provider: Elise Bull RN) 0144 (Given - Provider: Paz Lowe RN)0713 (Given - Provider: Paz Lowe RN) 1-2 Tab, Oral, Q4H PRN, Starting Sat10/20/14 at 1821, Until Discontinued, Pain LORazepam (aka ATIVAN) tablet 0.5 mg (CANCELED) 0144 (Given - Provider: Paz Lowe RN) 0.5 mg, Oral, Q4H PRN, Starting 10/11 at 1821, Until Discontinued, Anxiety documented in this encounter Care Teams Train Controller Relationship Specialty Start Date End Date Loretta Mcmahan MD PCP - General Family Practice 10/21/1402/10 documented as of this encounter
--- OUTSIDE RECORDS SUMMARY | 2022-06-20 02:24 | XMS_ITS | Encounter Summary ---
:1945 Author Organization [facility] Address [address], [place] [address] Care Team Providers Name Role Phone No Primary/Referring, Phy Primary Care Provider Unavailable Reason for Visit Procedure/Equipment (Routine) - Incomplete Specialty Diagnoses / Procedures Referred By Contact Refer red To Contact Procedures Molly Diaz PA-C CT HEAD (ADULT) [address] [place], [place] [address] Referral ID Status Reason Start Date Expiration Date Visits V isits Requested Authorized [id number] Incomplete 08/02/2014 1 1 Encounter Details Date Type Department Care Team Description 09/17/2014 Imaging [facility] Molly Diaz PA-C [place] [facility] [address] [facility] [address] [place] [address] [place] [address] [phone] Social History Tobacco Use Types Packs/Day Years [...] Priority Date/Time Associated Diagnosis Comme nts CT HEAD WO IV CONT Routine 09/17/2014 1:23 PM Res ults for this CERTIFIED TECHNICIAN procedure are i n the results section. documented in this encounter Results CT HEAD (ADULT) (09/17/2014 1:23 PM CERTIFIED TECHNICIAN) Anatomical Region Laterality Modality Head Computed Tomography Specimen (Source) Anatomical Collection Method Collection Time Re ceived Time Location / / Volume Laterality 09/17/2014 1:23 PM CERTIFIED TECHNICIAN Narrative 09/17/2014 6:02 PM CERTIFIED TECHNICIAN HEAD CT WITHOUT IV CONTRAST 09/17/2014 1:23 PM INDICATION: Subdural hematoma. TECHNIQUE: Head CT without IV contrast. COMPARISON: Head CT 08/26/2014 FINDINGS: Status post right parietal aircraft machinist niotomy. No residual or recurrent subdural hematoma. No midline shift. Nor mal intra-axial contents. Grossly normal orbits. No paranasal sinus or mas toid inflammation of significance. CONCLUSION: 1. ??Resolved subdural hematoma. 2. ??Normal intra-axial contents. Procedure Note Riki Eng MD - 09/17/2014Formattin g of this note might be different from the original. HEAD CT WITHOUT IV CONTRAST 09/17/2014 1:23 PM INDICATION: Subdural hematoma. TECHNIQUE: Head CT without IV contrast. COMPARISON: Head CT 08/26/2014 FINDINGS: Status post right parietal aircraft machinist niotomy. No residual or recurrent subdural hematoma. No midline shift. Nor mal intra-axial contents. Grossly normal orbits. No paranasal sinus or mas toid inflammation of significance. CONCLUSION: 1. Resolved subdural hematoma. 2. Normal intra-axial contents. Molly Diaz PA-C RAD CT documented in this encounter Visit Diagnoses Not on filedocumented in this encounter Care Teams Ppap Coordinator Relationship Specialty Start Date End Date No Primary/Referring, Phy PCP - General 09/07/14 1 12/20/13 documented as of this encounter
--- OUTSIDE RECORDS SUMMARY | 2022-06-20 02:24 | XMS_ITS | Encounter Summary ---
:1945 [facility] Address [address] [address] Care Team Providers Name Role Phone Loretta Mcmahan MD Primary Care Provider Unavailable Reason for Referral Consult/Transfer Care (Routine) - Closed Specialty Diagnoses / Procedures Referred By Contact Refer red To Contact Mónica Winters MD [address] [place] [address] Referral ID Status Reason Start Date Expiration Date Visits Requ ested Visits Authorized [id number] Closed 11/19/2014 02/18/2016 1 1 Scheduling Instructions Your provider has recommended an appoint ment with [facility]. You may call [phone] to maxim edule your appointment. If you prefer, a marketing communications leader will contact you within the ne xt 3 business days to assist you in setting up this appointment. ARY CARE PROVIDER Reason for Visit Reason Comments CONSULT seizure medication Consult/Transfer Care (Routine) - Closed Specialty Diagnoses / Procedures Referred By Contact Refer catina To Contact Diagnoses Seizure ([facility]) Cooper Shelley MD [address] [place] [address] Referral ID Status Reason Start Date Expiration Date Visits Requ ested Visits Authorized [id number] Closed 09/17/2014 12/17/2015 1 1 Encounter Details Date Type Department Care Team Description 11/19/2014 Office Visit Specialty Center Karmen Winters ons, unspecified convulsion type (Primary Dx); [facility] Mónica Kathleen MD Paraplegia; [address] Ependymoma; [place] [address] [place], [place] SDH (subdural hematoma) [phone] [id number] Social History Tobacco Use Types Packs/Day Years Used Date Smoking Tobacco: Never Smokeless Tobacco: Never Alcohol Use Standard Drinks/Week Comments No 0 (1 standard drink = 0.6 oz pure alcoho l) Sex Assigned at Date Recorded Male 08/06/2021 5:59 PM CDT documented as of this encounter Patient Instructions Patient InstructionsMónica Winters MD - 11/19/2014 2:18 PM CST Plan for decreasing Keppra: Week 1: 750/1000 Week 2: 750/750 Week 3: 500/750 Week 4: 500/500 Week 5: 250/500 Week 6: 250/250 Week 7: OFF/250 Week 8: OFF/OFF --If you have ANY weakness, numbness, tingling, shaking on the left side CALL my RN. --I am going to order a sleep consultation with Dr. Masters - if you choose to have it done, you can call for appt. --Follow up with me in 6 months. --Macy Ashford, RN [phone] Móniac Winters MD Neurology ARY CARE PROVIDER documented in this encounter Progress Notes Mónica Winters MD - 11/19/2014 1:48 PM CST Neurology Consultation ID: Jeff Cullen is a 69 yr old man accompanied by his Reason for Visit: Seizure medicine management. History of Present Illness: Jeff had an ICH on Jul 28. He went to bed the night before with mild h/a and the next morning the pain was much worse. They went to the hospital and had CT scan. Found bleeding - SDH. Did not have anyseizures for sure, but thought to possibly have had seizure activity with drooping of the left face and left arm after removal of drain. Resolved after 10 mins. He was completely oriented. No LOC. No stiffening shaking They increased the Keppra to 1000 mg BID. No further episodes of facial/arm weakness. No stiffening shaking. Most recent CT was on 10/20 and there were no signs of bleeding. Increased depression on Keppra. Past Medical History: Past Medical History Diagnosis Date ??? 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 However resection was incomplete due [...] spasticity of lower extremities. ??? Osteoporosis time study technologist wheelchair since 2006 ??? Leg fracture, left nontraumatic ??? Hypercholesteremia ??? Chronic constipation ??? Depression ??? Subdural hematoma, acute 2014 ??? Lower paraplegia ??? Chronic anticoagulation Allergies: Allergies Allergen Reactions ??? Oxycodone Other, see comments Delirium ??? Penicillins Rash ??? Zaroxolyn [Sulfa Drugs] Rash Medications: Outpatient Prescriptions Marked as Taking for the 11/19/14 encounter (Office Visit) with Mónica Winters MD: atorvastatin (LIPITOR) 40 MG tablet Take 1 Tab by mouth daily. Indications: high Choelsterol Disp: 30 Tab Rfl: 11 baclofen (AKA LIORESAL) 20 MG tablet Take 2 Tabs by mouth three times a day. Indications: Muscle Spasticity Disp: 90 Tab Rfl: 0 buPROPion (AKA WELLBUTRIN SR) 150 MG 12 hour release tablet Take 1 Tab by mouth two times a day. Indications: Major Depressive Disorder Disp: Rfl: DULoxetine (AKA CYMBALTA) 20 MG capsule Taking 4 tabs in morning and 2 tabs in afternoon Disp: Rfl: furosemide (LASIX) 40 MG tablet Take 40 mg by mouth two times a day. Disp: Rfl: gabapentin (AKA NEURONTIN) 400 MG capsule Take 1 Cap by mouth three times a day. Indications: Pain Disp: 90 Cap Rfl: 6 Generic Medication (COMPOUNDED CREAM) Apply 1-2 grams to the lower back TID prn.Ketamine 10%, boclofen 2%, gabapentin 6%, verapamil 6%. Apply to low back TID prn Disp: 250 g Rfl: 6 HYDROcodone-acetaminophen (AKA NORCO) 5-325 MG tablet Take 1-2 Tabs by mouth every 4 hours as neededfor Pain. Disp: 90 Tab Rfl: 0 leveTIRACETAM (AKA KEPPRA) 1000 MG tablet Take 1 Tab by mouth every 12 hours. Indications: seizure ppx Disp: 60 Tab Rfl: 1 LORazepam (AKA ATIVAN) 0.5 MG tablet Take 0.5 mg by mouth every 4 hours as needed for Anxiety. Disp:Rfl: Multiple Vitamins-Minerals (CENTRUM SILVER OR) Take 1 Tab by mouth daily. Disp: Rfl: niacin 500 MG tablet Take 1 Tab by mouth daily with breakfast. Indications: High Amount of Cholesterol in the Blood Disp: Rfl: polyethylene glycol (AKA MIRALAX) packet Take 1 Packet by mouth daily. Indications: Constipation Disp: 10 Each Rfl: 2 Potassium Chloride (KLOR-CON OR) Takes 40 meq twice daily Disp: Rfl: trimethoprim (AKA TRIMPEX) 100 MG tablet Take 100 mg by mouth daily. Disp: Rfl: warfarin (AKA COUMADIN) 5 MG tablet Take 1 tablet (5mg) by mouth on Mondays and take 1.5 tablets (7.5mg) all other days of the week Indications: Blood Clot in a Deep Vein Disp: Rfl: No Facility-Administered Medications for the 11/19/14 encounter (Office Visit) with Mónica Winters MD. Family History: Sister had kidney and breast cancer. Brother had throat cancer. There is CAD in the family as well as DM and HTn. Social History: He is . 2 grown children. Retired [employer] after 20 yrs service. Also workedat [employer] in [facility] until tumor in spine in 1999. reports that he has never smoked. He has never used smokeless tobacco. He reports that he does not drink alcohol or use illicit drugs. ROS: 10 point ROS was negative other than what was mentioned in the HPI. Physical Examination: There were no vitals filed for this visit. General: Patient was well dressed and in no distress. Affect was bright. Mood was appropriate. Language was fluent. Heart had a regular rate and rhythm without murmurs gallops or rubs. Lungs were clear bilaterally. Cranial Nerves: Visual kc were full. Pupils were 4/4 reacting to 2/2 mm. EOM were full without nystagmus. Facial expression and sensation were symmetric. Hearing was intact to voice. Palate elevated symmetrically. Shoulder shrug was full. Tongue was midline. Sensation: Absent sensation below nipple line. Motor: Bulk was normal and strength was full in the upper extremities. Weakness of both legs - in wheelchair. Coordination: Intact with finger to nose testing. There was no dysmetria. There is a tremor at target. Gait: Wheelchair. Reflexes: 2+ at the biceps, brachioradialis, 3+ patellar and Achilles tendons. 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 Found to have SDH which required evacuation. Possible seizure activity. Was started on Keppra. No further seizures. Worsening depression on Keppra. Plan: Plan for decreasing Keppra: Week 1: 750/1000 Week 2: 750/750 Week 3: 500/750 Week 4: 500/500 Week 5: 250/500 Week 6: 250/250 Week 7: OFF/250 Week 8: OFF/OFF --If you have ANY weakness, numbness, tingling, shaking on the left side CALL my RN. --I am going to order a sleep consultation with Dr. Masters - if you choose to have it done, you can call for appt. --Follow up with me in 6 months. --Macy Ashford, RN [phone] Total time spent with this patient was 60 minutes. >50% of this time was spent on counseling and coordinating care. This document has been created with voice recognition software. Please be aware there may be unintentional word substitutions. Mónica Winters MD ARY CARE PROVIDER documented in this encounter Plan of Treatment Scheduled Referrals Name Type Priority Associated Diagnoses Order S chedule SLEEP DISORDER Referral Routine Ordered: 07/2015 CONSULT-ADULT documented as of this encounter Visit Diagnoses Diagnosis Convulsions, unspecified convulsion type ([facility]) - Primary Paraplegia ([facility]) Paraplegia 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, unspecified site SDH (subdural hematoma) ([facility]) Subdural hemorrhage documented in this encounter Care Teams Hepatologist Relationship Specialty Start Date End Date Loretta Mcmahan MD PCP - General [facility] 10/21/1402/10 documented as of this encounter
--- OUTSIDE RECORDS SUMMARY | 2022-06-20 02:24 | XMS_ITS | Encounter Summary ---
:1945 [facility] Address [address] [address] Care Team Providers Name Role Phone Loretta Mcmahan MD Primary Care Provider Unavailable Reason for Visit Reason Onset Date Comments TREMORS 11/22/2014 [facility] Appointment 11/22/2014 Encounter Details Date Type Department Care Team Description 11/22/2014 Telephone [facility] Jose Shelley MD TREMORS; [facility] Appointment [address] [place] [phone] (Wo rk) Social History Tobacco Use Types Packs/Day Years Used Date Smoking Tobacco: Never Smokeless Tobacco: Never Alcohol Use Standard Drinks/Week Comments No 0 (1 standard drink = 0.6 oz pure alcoho l) Sex Assigned at Date Recorded Male 08/06/2021 5:59 PM CDT documented as of this encounter Nursing Notes Macy Ashford RN - 11/22/2014 4:26 PM CST states he has had the belly spasms for a long time, did not have any belly spasm with the seizure. Informed of 's recommendations. Will decrease Keppra as planned. Macy Ashford RN Mónica Vidal MD - 11/22/2014 4:08 PM CST If he is having spasm in the belly area like he did when he had the seizure then they should NOT decrease the Keppra. We will order EEG if that is the case. Please clarify with . If she is just talking about fine tremor in hands with fine motor activity, I am not too worried about that and she can keep track of it and see how it goes. Mónica Winters MD Neurology Sylvia Briggs RN - 11/22/2014 11:40 AM CST Noted that pt just saw neurology, Dr. Winters on Saturday, plan was decrease Keppra and call if anynew symptoms, sleep consult, and f/u 6 months. Called pts back. She states he forgot to talk to neurologist about this symptom last week. The shaking has been going on for 1.5 weeks, more noticeable today. Comes and goes in the legs, but in the hands it is more steady. It is a bilateral shaking in hands with fine motor activity, not at rest. His ornamental iron erector is good, no weakness. Otherwise feeling well, just a little MORAN off and on. Informed we will mention this to Dr. Shelley and Dr. Neff, as they were his surgeons in the past, but this type of shaking sounds like something his neurologist would want to be aware of. Transferred call to neurology clinic and will route this message to them. Sylvia Washington RN 11/22/2014, 11:51 AM GER OUTPATIENT Govind Dwyer - 11/22/2014 11:32 AM CST Patient's is calling. She states her has been having tremors/shaking within the last few days. She state he is also have spasm in belly area. They are wondering he should come in and have images done. Please advise which provider to schedule with as they are not sure who they should see. Thanks. GER OUTPATIENT documented in this encounter Plan of Treatment Not on filedocumented as of this encounter Visit Diagnoses Not on filedocumented in this encounter Care Teams Mortgage Loan Specialist Relationship Specialty Start Date End Date Loretta Mcmahan MD PCP - General Family Practice 10/21/1402/10 documented as of this encounter
--- OUTSIDE RECORDS SUMMARY | 2022-06-20 02:24 | XMS_ITS | Encounter Summary ---
:1945 Author Organization [facility] Address [address] [address] Care Team Providers Name Role Phone No Primary/Referring, Phy Primary Care Provider Unavailable Reason for Visit Reason Onset Date Comments Appointment 09/20/2014 Encounter Details Date Type Department Care Team Description 09/20/2014 Telephone [facility] Shin Calderón MD Appointment at [address] [address] [place] [address] [phone] Social History Tobacco Use Types Packs/Day Years Used Date Smoking Tobacco: Never Smokeless Tobacco: Never Alcohol Use Standard Drinks/Week Comments No 0 (1 standard drink = 0.6 oz pure alcoho l) Sex Assigned at Date Recorded Male 08/06/2021 5:59 PM CDT documented as of this encounter Nursing Notes Sheron Martinez RN - 09/20/2014 12:02 PM CST Marketing Associate called and told them of appt time. Sheron Martinez RN 09/20/2014, 12:02 PM. Sheron Narayan RN - 09/20/2014 11:[address] Salvador said he would see Jeff on 09/27 at 1520. Sheron Martinez RN 09/20/2014, 11:53 AM. Jaki Head 09/20/2014 9:57 AM CST Patient's calls to cancel today's appointment due to weather and road conditions. Please call to assist/adice on rescheduling as Dr. Salvador is scheduling out to the end of September. Thank you Jaki Koch CTOR METABOLISM documented in this encounter Plan of Treatment Not on filedocumented as of this encounter Visit Diagnoses Not on filedocumented in this encounter Care Teams Welt Maker Relationship Specialty Start Date End Date No Primary/Referring, Phy PCP - General 09/07/14 1 12/20/13 documented as of this encounter
--- OUTSIDE RECORDS SUMMARY | 2022-06-20 02:24 | XMS_ITS | Encounter Summary ---
:1945 Author [facility] Address [address] [address] Care Team Providers Name Role Phone Franklin Squires MD Primary Care Provider Encounter Details Date Type Department Care Team Description 09/07/2014 [facility]ence [facility], MRI SAFETY SHEET [address] [place] [address] Provider [place] [address] Social History Tobacco Use Types Packs/Day Years [...] on filedocumented in this encounter Care Teams Tumbler Tender Relationship Specialty Start Date End Date Franklin Squires MD PCP - General Family Practice 03/08/[address] [place], [place] [address]LES Wong [address] documented as of this encounter
--- OUTSIDE RECORDS SUMMARY | 2022-06-20 02:24 | XMS_ITS | Encounter Summary ---
:1945 Author Organization [facility] Address [address] [place] [address] Care Team Providers Name Role Phone Loretta Mcmahan MD Primary Care Provider Unavailable Reason for Visit Reason Comments Refill Encounter Details Date Type Department Care Team Description 12/24/2014 Telephone [facility] Mónica Winters, Refill [address] [place], [place] [address] [address] [facility] [phone] [place], [place] [address] (Wo rk) Social History Tobacco Use Types Packs/Day Years Used Date Smoking Tobacco: Never Smokeless Tobacco: Never Alcohol Use Standard Drinks/Week Comments No 0 (1 standard drink = 0.6 oz pure alcoho l) Sex Assigned at Date Recorded Male 08/06/2021 5:59 PM CDT documented as of this encounter Nursing Notes Macy Ashford RN - 12/24/2014 4:06 PM CST Spoke with spouse, states Jeff is being weaned off Keppra per but will run out of pills next . Needs 11 more pills . Per , ok to refill. Macy Ashford, VALERIE RMELON INSPECTOR documented in this encounter Plan of Treatment Not on filedocumented as of this encounter Visit Diagnoses Not on filedocumented in this encounter Care Teams Insurance Defense Paralegal Relationship Specialty Start Date End Date Loretta Mcmahan MD PCP - General Family Practice 10/21/1402/10 documented as of this encounter
--- OUTSIDE RECORDS SUMMARY | 2022-06-20 02:24 | XMS_ITS | Encounter Summary ---
:1945 Author Organization [employer] Address [address] [place] [address] Care Team Providers Name Role Phone Loretta Goss MD Primary Care Provider Unavailable Reason for Visit Reason Comments Revisit power wheelchair eval Encounter Details Date Type Department Care Team Description 12/07/2014 Office Visit Specialty Center May Randle Para plegia (Primary Dx); 401 Physical Kirsten Clemente MD Ependymoma; [address] DVT (deep venous thrombosis), bilateral; [place] [address] [place], [place] Neurogenic bladder; [phone] [address] Neurogenic bowel; [phone] Neurogenic pain (Work) Social History Tobacco Use Types Packs/Day Years Used Date Smoking Tobacco: Never Smokeless Tobacco: Never Alcohol Use Standard Drinks/Week Comments No 0 (1 standard drink = 0.6 oz pure alcoho l) Sex Assigned at Date Recorded Male 08/06/2021 5:59 PM CDT documented as of this encounter Last Filed Vital Signs Vital Sign Reading Time Taken Comments Blood Pressure 130/78 12/07/2014 2:11 PM THERMITE WELDER Pulse 85 12/07/2014 2:11 PM THERMITE WELDER Temperature - - Respiratory Rate - - Oxygen Saturation - - Inhaled Oxygen Concentration - - Weight - - Height - - Body Mass Index - - documented in this encounter Patient Instructions Patient InstructionsMay Randle MD - 12/07/2014 2:39 PM CST Reason for today's visit: followup paraplegia Your diagnosis: thoracic paraplegia Tests that you will need: none Treatment plan: Dr. Randle to write letter about wheelchair and send in paperwork Continue stander and Nustep as able Follow up: yearly If tests are needed, you will receive [...] treatment plan is please contact us at [phone] or send us a secure message via [employer]. If you need follow-up in the future, please call [phone] for an appointment. If you cannot get a time that satisfies you, please let us know what times work for you and we will do our best to accommodate you. Thank you for choosing May Randle MD and [facility]. MITE WELDER documented in this encounter Progress Notes May Randle MD - 12/07/2014 2:38 PM CST is accompanied to clinic today by his [...] Dr. Cohen. He has had procedures through [facility] including nerve blocks and his notes they [...] years and initially had his rehabilitation at [facility]. At that point he was still ambulatory [...] elbow-we have discussed Kisha lift if needed His primary care physician is Dr. Loretta GOSS at [facility] in [facility]. He continues to follow with Dr. Neff in neurosurgery regarding the thoracic tumor Past Medical History Diagnosis Date ??? 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 However resection was incomplete due [...] baclofen pump for spasticity of lower extremities. Current Outpatient Prescriptions Medication Sig ??? atorvastatin (LIPITOR) 40 MG tablet Take 1 Tab by mouth daily. Indications: high Choelsterol ??? baclofen (AKA LIORESAL) 20 MG tablet Take 2 Tabs by mouth three times a day. Indications: MuscleSpasticity ??? buPROPion (AKA WELLBUTRIN SR) 150 MG 12 hour release tablet Take 1 Tab by mouth two times a day.Indications: Major Depressive Disorder ??? Calcium Carbonate-Vitamin D (CALTRATE 600+D) 600-400 MG-UNIT Take 1 Tab by mouth two times a day. ??? cholecalciferol (AKA VITAMIN D3) 1000 UNITS tablet Take 2 Tabs by mouth daily. Indications: Vitamin D Deficiency ??? DULoxetine (AKA CYMBALTA) 20 MG capsule Taking 4 tabs in morning and 2 tabs in afternoon ??? furosemide (AKA LASIX) 20 MG tablet Take 1 Tab by mouth daily as needed (Edema). ??? furosemide (LASIX) 40 MG tablet Take 40 mg by mouth two times a day. ??? gabapentin (AKA NEURONTIN) 400 MG capsule Take 1 Cap by mouth three times a day. Indications: Pain ??? Generic Medication (COMPOUNDED CREAM) Apply 1-2 grams to the lower back TID prn. Ketamine 10%, boclofen 2%, gabapentin 6%, verapamil 6%. Apply to low back TID prn ??? HYDROcodone-acetaminophen (AKA NORCO) 5-325 MG tablet Take 1-2 Tabs by mouth every 4 hours as needed for Pain. ??? leveTIRACETAM (AKA KEPPRA) 1000 MG tablet Take 1 Tab by mouth every 12 hours. Indications: seizure ppx ??? levETIRAcetam (KEPPRA) 250 MG tablet Take 3 Tabs by mouth two times a day. Follow taper sheet. ??? LORazepam (AKA ATIVAN) 0.5 MG tablet [...] 1 Packet by mouth daily. Indications: Constipation ??? Potassium Chloride (KLOR-CON OR) Takes 40 meq twice daily ??? trimethoprim (AKA TRIMPEX) 100 MG tablet Take 100 mg by mouth daily. ??? warfarin (AKA COUMADIN) 5 MG tablet Take 1 tablet (5mg) by mouth on Mondays and take 1.5 tablets(7.5mg) all other days of the week Indications: Blood Clot in a Deep Vein Allergies Allergen Reactions ??? Zaroxolyn (Sulfa Drugs) Rash ??? Oxycodone Other Delirium History Social History ??? Marital Status: Spouse Name: N/A Number of Children: N/A ??? Years of Education: N/A Occupational History ??? Not on file. Social History Main Topics ??? Smoking status: Never Smoker ??? Smokeless tobacco: Not on file ??? Alcohol Use: No ??? Drug Use: No ??? Sexually Active: Yes -- Female partner(s) Other Topics Concern ??? Not on file Social History Narrative Wheelchair bound. Able to transfer from bed to wheelchair with assist of 1 at baseline. Lives with his in [place]. Family History Problem Relation Age of Onset [...] acute distress. He is alert and oriented x4.Affect is blunted with intermittent eye contact and his is answering many of the questions for him. He has good upper extremity range of motion and strength on the left and minimal limitation of right shoulder flexion on the right. He had a previous biceps injury on this side he is positioned in a Hoveround wheelchair sensation changes just above the nipple level and does not have sensation below this. Skin is intact where observed. He does have some lower extremity edema 1-2+ Tone is minimallyincreased in the lower extremities Rebeca 1+. There is no clonus. Deep tendon reflexes are brisk. Cardiovascular regular rate and rhythm. Lungs clear to auscultation. Abdomen colostomy present. 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 He remains on baclofen. needs regular liver function tests 2) reviewed and signed physical therapy evaluation regarding a power wheelchair. discussed with him my concerns with use of the power recline feature 3) continue home exercise program 4) continue stander, NuStep, at home as able -this has been limited by his pain 5) followup with Dr. Cohen as well as [facility] for procedures related to pain relief 6) he will be seen back on an as-needed basis but should be seen yearly for evaluation of issues related to spinal cord injury 30/40 of today's minutes spent in education and discussion regarding various elements for powered mobility, and coordination of care as noted above. All forms related to new power chair completed. May Randle MD MITE WELDER documented in this encounter Plan of Treatment Not on filedocumented as of this encounter Visit Diagnoses Diagnosis Paraplegia ([facility]) - Primary Paraplegia 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, unspecified site DVT (deep venous thrombosis), bilateral Neurogenic bladder Neurogenic bladder, NOS Neurogenic bowel Neurogenic pain Neuralgia, neuritis, and radiculitis, un specified documented in this encounter Care Teams Computer Project Manager Relationship Specialty Start Date End Date Loretta Goss MD PCP - General Family Practice 10/21/1402/10 documented as of this encounter
--- OUTSIDE RECORDS SUMMARY | 2022-06-20 02:24 | XMS_ITS | Encounter Summary ---
:1945 Author Organization [facility] [address], [place] [address] Care Team Providers Name Role Phone Franklin Squires MD Primary Care Provider Encounter Details Date Type Department Care Team Description 11/10/2014 Correspondence [facility] Trudi Raymundo, PT LETTER OF MEDICAL Physical Therapy [address] [place] [address] [phone] Social History Tobacco Use Types Packs/Day Years [...] on filedocumented in this encounter Care Teams Serology Technician Relationship Specialty Start Date End Date Franklin Squires MD PCP - General Family Practice 03/08/[address] [place] [address] [facility] [place] [address] documented as of this encounter
--- OUTSIDE RECORDS SUMMARY | 2022-06-20 02:24 | XMS_ITS | Encounter Summary ---
:1945 Author Organization [employer] Address [address] [address] Care Team Providers Name Role Phone Loretta Mcmahan MD Primary Care Provider Unavailable Reason for Visit Reason Onset Date Comments APPOINTMENT REQUEST 12/03/2014 Encounter Details Date Type Department Care Team Description 12/03/2014 Telephone Specialty Center 401 May Randle, APPOINTMENT REQUEST Physical Medicine MD 401 [facility]. [address] [place] [address] [place] [address] [phone] (Wo rk) Social History Tobacco Use Types Packs/Day Years Used Date Smoking Tobacco: Never Smokeless Tobacco: Never Alcohol Use Standard Drinks/Week Comments No 0 (1 standard drink = 0.6 oz pure alcoho l) Sex Assigned at Date Recorded Male 08/06/2021 5:59 PM CDT documented as of this encounter Nursing Notes Jaqueline Milian - 12/03/2014 4:13 PM CST Substation Mechanic called and informed her that pt appt was approved by Dr. Randle. TAL CUTTER Kaleigh Shah RN - 12/03/2014 3:36 PM CST MD approved appt Kaleigh Shah RN 12/03/2014, 3:36 PM TAL CUTTER Kaleigh Shah, RN - 12/03/2014 9:04 AM CST Patient's reports her MD cleared the appt via you- it is one of your held appt's. Did you want us to schedule Jeff Cullen 12/07 at 1:45pm? TAL CUTTER Jaqueline Milian - 12/03/2014 8:57 AM CST Pt calling stating that she was told to schedule appt with Dr. Randle on Dec 07 @ 1:45. PleaseAdvise TAL CUTTER documented in this encounter Plan of Treatment Not on filedocumented as of this encounter Visit Diagnoses Not on filedocumented in this encounter Care Teams Drill Operator Pneumatic Relationship Specialty Start Date End Date Loretta Mcmahan MD PCP - General Family Practice 10/21/1402/10 documented as of this encounter
--- OUTSIDE RECORDS SUMMARY | 2022-06-20 02:24 | XMS_ITS | Encounter Summary ---
:1945 Author [facility] Address [address], [place] [address] Care Team Providers Name Role Phone Loretta Mcmahan MD Primary Care Provider Unavailable Reason for Visit Reason Onset Date Comments Refill 11/16/2014 gabapentin Encounter Details Date Type Department Care Team Description 11/16/2014 Refill Specialty Center 401 Zelalem Cohen , Refill (gabapentin) Interventional Pain DO Management [address] [place] [phone] (Wo rk) Social History Tobacco Use Types Packs/Day Years Used Date Smoking Tobacco: Never Smokeless Tobacco: Never Alcohol Use Standard Drinks/Week Comments No 0 (1 standard drink = 0.6 oz pure alcoho l) Sex Assigned at Date Recorded Male 08/06/2021 5:59 PM CDT documented as of this encounter Nursing Notes Mireya Gillette RN - 11/17/2014 9:28 AM CST Rx. filled per provider note below. Mireya Gillette RN ILE PRODUCTS PROCESSOR Zelalem Cohen MD - 11/16/2014 3:36 PM CST Yes as noted with sylvia Cohen ILE PRODUCTS PROCESSOR Mireya Gillette RN - 11/16/2014 11:09 AM CST Is provider willing to refill, last filled 06-02-14 Refills 6, Due Per 08-19-14 OV Assessment: 1. S/p open right frontoparietal craniotomy with open right frontal evacuation of subdural hematoma. 2. Chronic back pain, facet 3. Hx of SCI Plan of Care: 1. F/u with [facility] for RFA as scheduled 2. No new changes in medications 3. F/u in one month to re-eval medications, and potentially taper neurontin assuming he does well with RFA 4. F/u with Dr. Shelley in neurosurgery ILE PRODUCTS PROCESSOR documented in this encounter Plan of Treatment Not on filedocumented as of this encounter Visit Diagnoses Not on filedocumented in this encounter Care Teams Suppression Crew Leader Relationship Specialty Start Date End Date Loretta Mcmahan MD PCP - General Family Practice 10/21/1402/10 documented as of this encounter
--- OUTSIDE RECORDS SUMMARY | 2022-06-20 02:24 | XMS_ITS | Encounter Summary ---
:1945 Author [facility] Address [address], [place] [address] Care Team Providers Name Role Phone Loretta Mcmahan MD Primary Care Provider Unavailable Reason for Visit Reason Onset Date Comments Medication Request 10/22/2014 Encounter Details Date Type Department Care Team Description 10/22/2014 Telephone Specialty Center 401 Yordy Shelley MD Medication Request NeuroSurgery [address] [facility] [address] [place] [address] [phone] (Wo rk) Social History Tobacco Use Types Packs/Day Years Used Date Smoking Tobacco: Never Smokeless Tobacco: Never Alcohol Use Standard Drinks/Week Comments No 0 (1 standard drink = 0.6 oz pure alcoho l) Sex Assigned at Date Recorded Male 08/06/2021 5:59 PM CDT documented as of this encounter Nursing Notes Beth Cordova RN - 10/22/2014 11:30 AM CST Per care team patient ok to have refill. Refill sent to [facility] in [place]. RN updated patient . Devin Cordova RN Govind Cooper - 10/22/2014 11:21 AM CST What medication are you calling about (name or type - ask patient to provide proper spelling from prescription container): levETIRAcetam (AKA KEPPRA) 1000 MG tablet Dose: 1000 mg How often do you take it: 1 tablet 2 times day. Who prescribed it: Dr. Shelley What is your question/concern: Needs refill, patient only has a few days worth left. Patient does not see Neurologist until Nov 19 would enough until that appointment. Is it okay to leave detailed message on your voicemail? yes DRILLER documented in this encounter Plan of Treatment Not on filedocumented as of this encounter Visit Diagnoses Not on filedocumented in this encounter Care Teams Psychology Tech Relationship Specialty Start Date End Date Loretta Mcmahan MD PCP - General Family Practice 10/21/1402/10 documented as of this encounter
--- OUTSIDE RECORDS SUMMARY | 2022-06-20 02:24 | XMS_ITS | Encounter Summary ---
:1945 Author Organization [facility] Address [address], [place] [address] Care Team Providers Name Role Phone Loretta Mcmahan MD Primary Care Provider Unavailable Encounter Details Date Type Department Care Team Description 10/12/2014 Therapy External to Physical Therapy, Provider Social [...] on filedocumented in this encounter Care Teams Private Equity Associate Relationship Specialty Start Date End Date Loretta Mcmahan MD PCP - General Family Practice 10/21/1402/10 documented as of this encounter
--- OUTSIDE RECORDS SUMMARY | 2022-06-20 02:24 | XMS_ITS | Encounter Summary ---
:1945 Author Organization [facility] Address [address] [place] [address] Care Team Providers Name Role Phone Loretta Mcmahan MD Primary Care Provider Unavailable Encounter Details Date Type Department Care Team Description 11/30/2014 Orders Only External to HP No Primary/Referring, Phy Social History Tobacco Use Types Packs/Day Years [...] Date/Time Associated Diagnosis Comme nts OUTSIDE IMAGING 11/30/2014 12:00 AM Resul ts for this OPERATOR AND TRUCK DRIVER procedure are i n the results section. documented in this encounter Results OUTSIDE IMAGING (11/30/2014 12:00 AM OPERATOR AND TRUCK DRIVER) Anatomical Region Laterality Modality Other Specimen (Source) Anatomical Location Collection Method / Collectio n Time Received Time / Laterality Volume 11/30/2014 Narrative This result has an attachment that is no t available. Phy No Primary/Referring RAD_1 documented in this encounter Visit Diagnoses Not on filedocumented in this encounter Care Teams Treater Helper Relationship Specialty Start Date End Date Loretta Mcmahan MD PCP - General Family Practice 10/21/1402/10 documented as of this encounter
--- OUTSIDE RECORDS SUMMARY | 2022-06-20 02:24 | XMS_ITS | Encounter Summary ---
:1945 Author Organization [facility] Address [address], [place] [address] Care Team Providers Name Role Phone Loretta Mcmahan MD Primary Care Provider Unavailable Reason for Visit Reason Onset Date Comments ERRONEOUS ENTRY 11/22/2014 Encounter Details Date Type Department Care Team Description 11/22/2014 Telephone [facility] Mónica Winters, ERRONEOUS ENTRY [address] Beni [place], [place] [address] [address] [facility] [phone] [place], [place] [address] (Wo rk) Social History [...] on filedocumented in this encounter Care Teams Riverine Assault Craft Crewman Relationship Specialty Start Date End Date Loretta Mcmahan MD PCP - General Family Practice 10/21/1402/10 documented as of this encounter
--- OUTSIDE RECORDS SUMMARY | 2022-06-20 02:24 | XMS_ITS | Encounter Summary ---
:1945 Author Organization [facility] Address [address], [place] [address] Care Team Providers Name Role Phone Loretta Mcmahan MD Primary Care Provider Unavailable Reason for Visit Reason Onset Date Comments Careplan: Anticoagulation 11/24/2014 Medication Questions 11/24/2014 Encounter Details Date Type Department Care Team Description 11/24/2014 Telephone [facility] Salvador replan: [facility] at [facility] Ulloa MD Anticoagulation; Hospital [address] [place] [address] Medication Questions [address] [place] [address] [phone] Social History Tobacco Use Types Packs/Day Years Used Date Smoking Tobacco: Never Smokeless Tobacco: Never Alcohol Use Standard Drinks/Week Comments No 0 (1 standard drink = 0.6 oz pure alcoho l) Sex Assigned at Date Recorded Male 08/06/2021 5:59 PM CDT documented as of this encounter Nursing Notes Britany Knox RN - 11/25/2014 10:59 AM CST Heather was informed of Dr Loya's note. Jeff will see Dr Mcmahan this afternoon. Britany Knox RN 11/25/2014, 10:59 AM Genny Kay MD - 11/25/2014 8:23 AM CST I spoke with Dr Mcmahan As he has had recent DVTs - use therapeutic lovenox 1mg/kg bid prior to surgery, while off coumadin - last dose 24 hours prior to surgery After surgery - need to check with Dr Neff how soon he is comfortable restarting lovenox and coumadin - usually we wait 24 - 48 hours prior to restarting therapeutic lovenox Genny Loya MD E MAN Britany Knox, RN - 11/24/2014 4:09 PM CST Pt has history of brain bleed and is currently on anticoagulation managed by Dr Mcmahan. Has a medial branch block scheduled with Dr Neff on 11/30/14 Needs coumadin bridging arranged but due to history of brain bleed, Dr Mcmahan is not fully comfortable dosing the bridge and would like some input from [facility]. Per spouse, procedure can be postponed if more time is needed to coordinate bridging. Request Dr Loya to contact Dr Mcmahan to give bridging recommendations for Dr Mcmahan's office to manage. Dr Mcmahan clinic [phone] Thank you. Britany Knox RN 11/24/2014, 4:13 PM E MAN Trudi Mendez - 11/24/2014 3:13 PM CST Jeff is having a medial branch block and needs to be off coumadin and would like dr salvador to dose lovonox bridge E MAN documented in this encounter Plan of Treatment Not on filedocumented as of this encounter Visit Diagnoses Not on filedocumented in this encounter Care Teams Rail Transportation Tabeler Relationship Specialty Start Date End Date Loretta Mcmahan MD PCP - General Family Practice 10/21/1402/10 documented as of this encounter
--- OUTSIDE RECORDS SUMMARY | 2022-06-20 02:24 | XMS_ITS | Encounter Summary ---
:1945 Author Organization [employer] Address [address], [place] [address] Care Team Providers Name Role Phone Unavailable Primary Care Provider Unavailable Reason for Visit Reason Onset Date Comments Medication Request 09/03/2014 Encounter Details Date Type Department Care Team Description 09/03/2014 Telephone Specialty Center 401 Garry Neff, Medication Request NeuroSurgery [address] [place] [address] [place] [address] [phone] (Wo rk) Social History Tobacco Use Types Packs/Day Years Used Date Smoking Tobacco: Never Smokeless Tobacco: Never Alcohol Use Standard Drinks/Week Comments No 0 (1 standard drink = 0.6 oz pure alcoho l) Sex Assigned at Date Recorded Male 08/06/2021 5:59 PM CDT documented as of this encounter Nursing Notes Selene Johnson RN - 09/06/2014 1:47 PM CDT Call received from to verify pharmacy prescription written and faxed to pharmacy for MRI.Selene Johnson RN 09/06/2014, 1:47 PM Selene Johnson RN - 09/06/2014 11:55 AM CDT Left message with patient to verify pharmacy.Selene Johnson RN 09/06/2014, 11:55 AM Beth Cordova RN - 09/03/2014 3:15 PM CDT RN returned call to patient. Patient is requesting valium for his upcoming MRI on 09-07. Patient updated that there are no providers in clinic today, care team will address on saturday when back in clinic. Patient verbalized understanding. Devin Cordova RN Mary Ann Robles - 09/03/2014 2:12 PM CDT Pts calling and requesting prescription for valium due to back pain with pt and being unable tolie for that amount of time. Please advise. documented in this encounter Plan of Treatment Not on filedocumented as of this encounter Visit Diagnoses Not on filedocumented in this encounter
--- OUTSIDE RECORDS SUMMARY | 2022-06-20 02:24 | XMS_ITS | Encounter Summary ---
:1945 Author Organization [email or web address] Address [address] [address] Care Team Providers Name Role Phone Loretta Mcmahan MD Primary Care Provider Unavailable Reason for Visit Reason Onset Date Comments Refill 10/29/2014 compound cream Encounter Details Date Type Department Care Team Description 10/29/2014 Refill Specialty Center 401 Zelalem Cohen , Refill (compound cream) Interventional Pain DO Management [address] [place] [address] [phone] Social History Tobacco Use Types Packs/Day Years Used Date Smoking Tobacco: Never Smokeless Tobacco: Never Alcohol Use Standard Drinks/Week Comments No 0 (1 standard drink = 0.6 oz pure alcoho l) Sex Assigned at Date Recorded Male 08/06/2021 5:59 PM CDT documented as of this encounter Nursing Notes Mireya Gillette RN - 11/03/2014 9:21 AM CST Spoke to Pharmacist Corrie, calling to confirm ok to add base (3% pentoxisylline) which was included inprevious refills. VO given to include base, pt has had in previous compounded cream. Mireya Gillette RN UM CLEANER REPAIRER Yazmin Montoya - 11/02/2014 4:17 PM CST Pharmacy calling back requesting clarification of quantity and ingredients. option 2 UM CLEANER REPAIRER Mireya Gillette RN - 11/02/2014 10:25 AM CST Rx. filled per provider note below. Mireya Gillette RN UM CLEANER REPAIRER Yazmin Montoya - 11/02/2014 9:17 AM CST Pharmacy requesting status of refill. UM CLEANER REPAIRER Zelalem Cohen MD - 11/01/2014 4:30 PM CST Yes as noted for compound cream Dr. Benito Cohen UM CLEANER REPAIRER Mireya Gillette RN - 11/01/2014 9:38 AM CST Is provider willing to refill, last filled 04-26-14, Due Compound Cream: Apply 1-2 grams to the lower back TID prn. 250g/refills 6 Per 08-19-14 OV Assessment: 1. S/p open [...] 4. F/u with Dr. Shelley in neurosurgery UM CLEANER REPAIRER documented in this encounter Plan of Treatment Not on filedocumented as of this encounter Visit Diagnoses Diagnosis Back pain Backache, unspecified documented in this encounter Care Teams Chief Of Planning Relationship Specialty Start Date End Date Loretta Mcmahan MD PCP - General Family Practice 10/21/1402/10 documented as of this encounter
--- OUTSIDE RECORDS SUMMARY | 2022-06-20 02:24 | XMS_ITS | Encounter Summary ---
:1945 Author Organization [facility] Address [address] [place] [address] Care Team Providers Name Role Phone Loretta Mcmahan MD Primary Care Provider Unavailable Encounter Details Date Type Department Care Team Description 12/27/2014 Orders Only External to Alfonso Neff MD [address] [place] [phone] (Wo rk) Social History Tobacco [...] Date/Time Associated Diagnosis Comme nts OUTSIDE IMAGING 12/27/2014 12:00 AM Resul ts for this CARTRIDGE LOADING OPERATOR procedure are i n the results section. documented in this encounter Results OUTSIDE IMAGING (12/27/2014 12:00 AM CARTRIDGE LOADING OPERATOR) Anatomical Region Laterality Modality Other Specimen (Source) Anatomical Location Collection Method / Collectio n Time Received Time / Laterality Volume 12/27/2014 Narrative This result has an attachment that is no t available. Garry Neff MD RAD_1 documented in this encounter Visit Diagnoses Not on filedocumented in this encounter Care Teams Gate Cutter Relationship Specialty Start Date End Date Loretta Mcmahan MD PCP - General Family Practice 10/21/1402/10 documented as of this encounter
--- OUTSIDE RECORDS SUMMARY | 2022-06-20 02:24 | XMS_ITS | Encounter Summary ---
:1945 Author Organization [facility] Address [address] [address] Care Team Providers Name Role Phone Loretta Mcmahan MD Primary Care Provider Unavailable Reason for Visit Reason Onset Date Comments QUESTIONS, GENERAL 11/24/2014 Encounter Details Date Type Department Care Team Description 11/24/2014 Telephone Specialty Center 401 Garry Neff, QUESTIONS, GENERAL NeuroSurgery [address] [place] [address] [place] [address] [phone] (Wo rk) Social History Tobacco Use Types Packs/Day Years Used Date Smoking Tobacco: Never Smokeless Tobacco: Never Alcohol Use Standard Drinks/Week Comments No 0 (1 standard drink = 0.6 oz pure alcoho l) Sex Assigned at Date Recorded Male 08/06/2021 5:59 PM CDT documented as of this encounter Nursing Notes Selene Johnson RN - 11/24/2014 2:36 PM CST Call placed and left message explaining that Heather (patient's spouse) should call 's office for bridging recommendations.Selene Johnson RN 11/24/2014, 2:37 PM CH COORDINATOR Cristine Haddad PA-C - 11/24/2014 11:[address] Salvador's notes, he is okay to have the injection done this month. However, patient is still on coumadin and bridging recommendations/timing should be advised per Dr. Salvador. Cristine Mir PA-C CH COORDINATOR Beth Read - 11/24/2014 11:37 AM CST Patient's is calling stating that pt is having a medial block and has questions regarding discontinuing blood thinners and the use of lovenox injections. CH COORDINATOR documented in this encounter Plan of Treatment Not on filedocumented as of this encounter Visit Diagnoses Not on filedocumented in this encounter Care Teams Mat Puncher Relationship Specialty Start Date End Date Loretta Mcmahan MD PCP - General Family Practice 10/21/1402/10 documented as of this encounter
--- OUTSIDE RECORDS SUMMARY | 2022-06-20 02:24 | XMS_ITS | Encounter Summary ---
:1945 Author Organization [facility] Address [address] [address] Care Team Providers Name Role Phone Loretta Mcmahan MD Primary Care Provider Unavailable Reason for Visit Reason Onset Date Comments QUESTIONS, GENERAL 09/16/2014 Encounter Details Date Type Department Care Team Description 09/16/2014 Telephone [facility] Salvador W, QUESTIONS, GENERAL [facility] frannie BEVERLY [address] [facility] [address] [place] [address] [place], [place] [phone] (Wo rk) Social History Tobacco Use Types Packs/Day Years Used Date Smoking Tobacco: Never Smokeless Tobacco: Never Alcohol Use Standard Drinks/Week Comments No 0 (1 standard drink = 0.6 oz pure alcoho l) Sex Assigned at Date Recorded Male 08/06/2021 5:59 PM CDT documented as of this encounter Nursing Notes Britany Knox RN - 09/16/2014 1:59 PM CST OK to cancel ultrasound. TO/RB Dr Salvador/VALERIE Fitzgerald was informed. US cancelled. Britany Knox RN 09/16/2014, 2:00 PM Becky Ramos - 09/16/2014 12:43 PM CST Patient's spouse called to say the patient is back on coumadin and wants to know if the scheduled ultrasound is still needed next week prior to seeing Dr. Salvador. Please call. Becky Hughes 09/16/2014, 12:44 PM HT CREW ORDNANCEMAN documented in this encounter Plan of Treatment Not on filedocumented as of this encounter Visit Diagnoses Not on filedocumented in this encounter Care Teams Shipping Point Inspector Relationship Specialty Start Date End Date Loretta Mcmahan MD PCP - General Family Practice 10/21/1402/10 documented as of this encounter
--- OUTSIDE RECORDS SUMMARY | 2022-06-20 02:24 | XMS_ITS | Encounter Summary ---
:1945 Author Organization [facility] Address [address] [place] [address] Care Team Providers Name Role Phone Loretta Mcmahan MD Primary Care Provider Unavailable Encounter Details Date Type Department Care Team Description 01/05/2015 Orders Only External to Loretta Mcmahan MD Social History Tobacco Use Types Packs/Day Years [...] Name Priority Date/Time Associated Diagnosis Comme nts MRI SPINE--SCAN 01/05/2015 12:00 AM Resul ts for this EXCEL EXPERT procedure are i n the results section. documented in this encounter Results MRI SPINE--SCAN (01/05/2015 12:00 AM EXCEL EXPERT) Anatomical Region Laterality Modality Other Specimen (Source) Anatomical Location Collection Method / Collectio n Time Received Time / Laterality Volume 01/05/2015 Narrative This result has an attachment that is no t available. Loretta Mcmahan MD DUMMY/OTHER/AR documented in this encounter Visit Diagnoses Not on filedocumented in this encounter Care Teams Rigging Loft Mechanic Relationship Specialty Start Date End Date Loretta Mcmahan MD PCP - General Family Practice 10/21/1402/10 documented as of this encounter
--- OUTSIDE RECORDS SUMMARY | 2022-06-20 02:24 | XMS_ITS | Encounter Summary ---
:1945 Author Organization [facility] Address [address] [address] Care Team Providers Name Role Phone Loretta Mcmahan MD Primary Care Provider Unavailable Encounter Details Date Type Department Care Team Description 10/21/2014 Notes/Orders [facility] Trudi Raymundo, PT Physical Therapy [address] [place] [address] [place] [address] [phone] Social History Tobacco Use Types Packs/Day Years Used Date Smoking Tobacco: Never Smokeless Tobacco: Never Alcohol Use Standard Drinks/Week Comments No 0 (1 standard drink = 0.6 oz pure alcoho l) Sex Assigned at Date Recorded Male 08/06/2021 5:59 PM CDT documented as of this encounter Nursing Notes Trudi Raymundo, PT - 10/21/2014 12:10 PM CST Patient's , Heather was present in the clinic today requesting to speak with this therapist. Jeff was hospitalized under observation yesterday and spent the night due to a headache, fever and high heart rate. Heather took him to the ED in [facility] but their CT scan was down so they were sent to [facility]. Because of his recent SDH and presentation of a headache, a CT scan was required. They kept him over night here at [facility] and are treating him for a UTI. CT scan was clear. He is still planningon coming tomorrow for his wheelchair re evaluation. Did briefly discuss the power option of elevation with Heather but that it is not covered by insurance and would be about $3000. Asked that she speak with Jeff about this based upon his current difficulty with transfers and we could further discuss tomorrow. NICAL ADMINISTRATIVE ASSISTANT documented in this encounter Plan of Treatment Not on filedocumented as of this encounter Visit Diagnoses Not on filedocumented in this encounter Care Teams Lang Interpreter Relationship Specialty Start Date End Date Loretta Mcmahan MD PCP - General Family Practice 10/21/1402/10 documented as of this encounter
--- OUTSIDE RECORDS SUMMARY | 2022-06-20 02:24 | XMS_ITS | Encounter Summary ---
:1945 [facility] Address [address] [place] [address] Care Team Providers Name Role Phone No Primary/Referring, Phy Primary Care Provider Unavailable Reason for Referral Consult/Transfer Care (Routine) - Closed Specialty Diagnoses / Procedures Referred By Contact Refer red To Contact Diagnoses Seizure (HRC) Cooper Shelley MD [address] [place] [phone] Referral ID Status Reason Start Date Expiration Date Visits Requ ested Visits Authorized [id number] Closed 09/17/2014 12/17/2015 1 1 Scheduling Instructions To be scheduled with Dr. Winters Your provider has [facility] an [facility] ment [facility] You may call [phone] to schedule your appoi ntment. If you prefer, a greaser and oiler will contact you within the next 3 business d ays to assist you in setting up this appointment. MIXING OPERATOR Reason for Visit Reason Comments EXAM,POSTOP DOS 07/28/14 Consult/Transfer Care (Routine) - Closed Specialty Diagnoses / Procedures Referred By Contact Refer red To Contact Neurosurgery Molly Diaz PA-C [address] [place], [place] [address] Referral ID Status Reason Start Date Expiration Date Visits Requ ested Visits Authorized [id number] Closed 08/02/2014 11/01/2015 1 1 Encounter Details Date Type Department Care Team Description 09/17/2014 Office Visit [facility] Jose Shelley MD Seizure (Primary Dx) [address] NeuroSurgery [address] [place] [address] [place] [address] [place] [address] (Wo rk) Social History Tobacco Use Types Packs/Day Years Used Date Smoking Tobacco: Never Smokeless Tobacco: Never Alcohol Use Standard Drinks/Week Comments No 0 (1 standard drink = 0.6 oz pure alcoho l) Sex Assigned at Date Recorded Male 08/06/2021 5:59 PM CDT documented as of this encounter Last Filed Vital Signs Vital Sign Reading Time Taken Comments Blood Pressure 74/50 09/17/2014 1:53 PM SEAL MIXING OPERATOR Pulse 99 09/17/2014 1:52 PM SEAL MIXING OPERATOR Temperature 35.6 ??C (96 ??F) 09/17/2014 1:52 PM SEAL MIXING OPERATOR Respiratory Rate 17 09/17/2014 1:52 PM SEAL MIXING OPERATOR Oxygen Saturation - - Inhaled Oxygen Concentration - - Weight - - Height - - Body Mass Index - - documented in this encounter Patient Instructions Patient InstructionsGCristy lujan RN - 09/17/2014 2:30 PM CST Neurosurgery/Spine Clinic Patient Instructions We will refer you to Neurology for Keppra management Follow up with Dr. Cooper Shelley as needed. If tests were ordered, they will be [...] understanding. Please call the Neurosurgery/Spine Clinic at [phone] option #3 with any further questions or concerns. MIXING OPERATOR documented in this encounter Progress Notes Molly Diaz PA-C - 09/17/2014 3:50 PM CST Chief Complaint: Doing well Subjective: Jeff Cullen is a 69 yr pt who presents today for a follow up appointment. Pt is s/p open right frontoparietal craniotomy for evacuation of hematoma performed on 07/28/[address] Cooper Shelley. 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 He also has a hxof LE DVT with IVC filter. Currently he is doing quite well. He was seen by Cristine Mir PA-C recently for his ependymoma. He is waiting on MRI results. I reviewed the radiologist's read and let him know it said no recurrence, which he was happy to hear. In regards to his craniotomy he is doing quite well. No headaches. No weakness, numnbess. No further seizures. No neurologic complaints. No drainage from wound. Was admitted recently to [facility] for occlusive LE DVT. At that time he was restarted on lovenox and bridged to coumadin. We were consulted in this process. His new INR goal is 2.0-2.5, having trouble adjusting to get within this range. He follows with Dr. Salvador here and in a coumadin clinic near his home. Denies any fevers/chills or other signs of infection. Objective: BP 74/50 Pulse 99 Temp(Src) 96 ??F (35.6 ??C) (Tympanic) Resp 17 General: alert, oriented to person, place, time and pleasant to converse Head: atraumatic Eyes: no scleral injection, EOMI grossly intact Chest/Pulmonary: chest rise equal bilaterally, no tachypnea, no retractions and no cyanosis The incision site appears clean, dry with well-approximated edges and no signs of infection or dehiscence. No drift CN II-XII intact Imaging: Head CT shows no new hemorrhage Assessment: 69 yr male s/p open right frontoparietal craniotomy for evacuation of hematoma performed on 07/28/[address] Cooper Shelley. 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 Hx of LE DVT withIVC filter, recently with occlusive DVT, on coumadin. 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 Questionable seizure post operatively Plan: He is asking about his keppra today--he did have one episode of questionable seizure post op (facialdroop, unilateral weakness, pronator drift), for which keppra was loaded and dose increased. I recommend that he follow up with neurology, Dr. Winters regarding duration of keppra. I advised that cl coordinate this with another appointment in the [facility] and that it is not urgent. He can follow up with us as needed, but should notify us if he has worsening headaches, weakness, numbness, seizure, etc. He and his express understanding and are grateful for their care. Pt is to f/u PRN or sooner if symptoms change or worsen or questions arise. Patient is in agreement with this plan. Questions and concerns were addressed. Patient was instructed to call our office sooner with any change or increase in symptoms. Total time spent was 15 minutes of which more than 50% where used in counseling. Molly Diaz PA-C MIXING OPERATOR documented in this encounter Plan of Treatment Scheduled Referrals Name Type Priority Associated Diagnoses Order S chedule NEUROLOGY CONSULT-ADULTS Referral Routine Seizure Ord ered: 09/17/2014 documented as of this encounter Visit Diagnoses Diagnosis Seizure (HRC) - Primary Other convulsions documented in this encounter Care Teams Title One Teacher Relationship Specialty Start Date End Date No Primary/Referring, Phy PCP - General 09/07/14 1 12/20/13 documented as of this encounter
--- OUTSIDE RECORDS SUMMARY | 2022-06-20 02:24 | XMS_ITS | Encounter Summary ---
:1945 Author Organization [facility] Address [address], [place] [address] Care Team Providers Name Role Phone Loretta Mcmahan MD Primary Care Provider Unavailable Encounter Details Date Type Department Care Team Description 11/05/2014 Therapy External to Physical Therapy, Provider Social [...] on filedocumented in this encounter Care Teams Partner Marketing Manager Relationship Specialty Start Date End Date Loretta Mcmahan MD PCP - General Family Practice 10/21/1402/10 documented as of this encounter
--- OUTSIDE RECORDS SUMMARY | 2022-06-20 02:24 | XMS_ITS | Encounter Summary ---
:1945 Author [facility] Address [address] [address] Care Team Providers Name Role Phone Franklin Squires MD Primary Care Provider Encounter Details Date Type Department Care Team Description 12/14/2014 [facility] May Randle TAILED PRODUCT 401 Physical Kirsten Clemente MD DESCRIPTION [address] [place] [address] [place], [place] [phone] Social History Tobacco Use Types Packs/Day Years [...] on filedocumented in this encounter Care Teams Attorney General Relationship Specialty Start Date End Date Franklin Squires MD PCP - General Family Practice 03/08/[address] [place] [address] [facility] [id number] documented as of this encounter
--- OUTSIDE RECORDS SUMMARY | 2022-06-20 02:24 | XMS_ITS | Encounter Summary ---
:1945 Author Organization [facility] Address [address] [place] [address] Care Team Providers Name Role Phone No Primary/Referring, Phy Primary Care Provider Unavailable Reason for Visit Reason Onset Date Comments Other 10/06/2014 Encounter Details Date Type Department Care Team Description 10/06/2014 Telephone [facility] Trudi Raymundo, PT Other Physical Therapy [address] [place] [address] [place] [address] [phone] Social History Tobacco Use Types Packs/Day Years Used Date Smoking Tobacco: Never Smokeless Tobacco: Never Alcohol Use Standard Drinks/Week Comments No 0 (1 standard drink = 0.6 oz pure alcoho l) Sex Assigned at Date Recorded Male 08/06/2021 5:59 PM CDT documented as of this encounter Progress Notes Neeraj Smalls MD - 10/06/2014 5:27 PM CREATIVE SERVICES MANAGER Addended by: NEERAJ SMALLS on: 10/06/2014 05:27 PM Modules accepted: Orders TIVE SERVICES MANAGER documented in this encounter Nursing Notes Neeraj Smalls MD - 10/06/2014 5:27 PM CST Order entered. Neeraj Smalls MD TIVE SERVICES MANAGER Trudi Raymundo PT - 10/06/2014 3:48 PM CST Patient's called and left message yesterday for therapist to call her back. Called patient backtoday and spoke with spouse, Heather. Heather states Jeff has had multiple medical complications since last visit in April of 2014 including a SDH, blood clots and now has developed a decubitus ulcer onhis foot due to poor positioning in his current wheelchair. Jeff had been hoping to pursue a standing power wheelchair with power elevation but now has decided that because this chair requires multiple appeals and is often not covered, that they are going to opt to pursue a power chair with power recline, power tilt and power elevating leg rests only. They decided this based upon the fact that his positioning is more important that standing particularly in light of his multiple medical complications. An appointment will be scheduled at [facility] for a re evaluation for wheelchair seating and a home trial will be completed as necessary. [facility] will be involved. Patient will be called to schedule this appointment. Heather was in agreement with this plan. TIVE SERVICES MANAGER documented in this encounter Plan of Treatment Not on filedocumented as of this encounter Visit Diagnoses Diagnosis Paraplegia (HRC) - Primary Paraplegia Edema Back pain Backache, unspecified documented in this encounter Care Teams Clinical Cytogeneticist Scientist Relationship Specialty Start Date End Date No Primary/Referring, Ottoniel PCP - General 09/07/14 1 12/20/13 documented as of this encounter
--- OUTSIDE RECORDS SUMMARY | 2022-06-20 02:24 | XMS_ITS | Encounter Summary ---
:1945 Author [facility] Address [address], [place] [address] Care Team Providers Name Role Phone No Primary/Referring, Phy Primary Care Provider Unavailable Reason for Visit Reason Comments Refill Encounter Details Date Type Department Care Team Description 09/16/2014 Refill Specialty Center 401 Zelalem Cohen, DO Refill Interventional Pain Management [address] [place] [address] [place] [address] [phone] Social History Tobacco Use Types Packs/Day Years Used Date Smoking Tobacco: Never Smokeless Tobacco: Never Alcohol Use Standard Drinks/Week Comments No 0 (1 standard drink = 0.6 oz pure alcoho l) Sex Assigned at Date Recorded Male 08/06/2021 5:59 PM CDT documented as of this encounter Nursing Notes Loree Garcia RN - 09/17/2014 1:15 PM CST Rx signed ATRIC DENTAL ASSISTANT Zelalem Cohen MD - 09/17/2014 12:58 PM CST cymbalta as noted Dr. Benito Cohen ATRIC DENTAL ASSISTANT Paulina Kumari RN - 09/16/2014 10:09 AM CST Is provider willing to refill? 01/26 Dr. Cohen rx'd Cymbalta 20 mg: Take 4 Caps by mouth daily. (3 month supply 0 refills) From 08/19 OV: Assessment: 1. S/p open right frontoparietal craniotomy [...] 4. F/u with Dr. Shelley in neurosurgery ATRIC DENTAL ASSISTANT documented in this encounter Plan of Treatment Not on filedocumented as of this encounter Visit Diagnoses Not on filedocumented in this encounter Care Teams Plant Security Guard Relationship Specialty Start Date End Date No Primary/Referring, Ottoniel PCP - General 09/07/14 1 12/20/13 documented as of this encounter
--- OUTSIDE RECORDS SUMMARY | 2022-06-20 02:24 | XMS_ITS | Encounter Summary ---
:1945 Author Organization [facility] Address [address] [address] Care Team Providers Name Role Phone No Primary/Referring, Phy Primary Care Provider Unavailable Reason for Visit Procedure/Equipment (Routine) - Closed Specialty Diagnoses / Procedures Referred By Contact Refer red To Contact Procedures Garry Neff MD MR THORACIC SPINE [address] WITH/WITHOUT CONTRAST [place], [place] [address] Referral ID Status Reason Start Date Expiration Date Visits Requ ested Visits Authorized [id number] Closed 12/16/2013 03/17/2015 1 1 Encounter Details Date Type Department Care Team Description 09/07/2014 [facility] Special[facility] Garry Neff MD Center MRI [address] [place] [address] [place] [address] [phone] Social History Tobacco Use Types Packs/Day Years [...] Diagnosis Comme nts MR THORACIC SPINE Routine 09/07/2014 12:30 PM Res ults for this W/WO IV CONT CDT procedure are i n the results section. 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 TECHNIQUE: Multiplanar, multisequence MR imaging of the thoracic spine was performed prior to and following adminis tration of intravenous contrast. CONTRAST: 20 mL Magnevist COMPARISON: Prior MRI examinations of th e thoracic spine, last performed 12/16/2013, and dating back to 0. FINDINGS: Alignment is stable, with maintenance of vertebral body height throughout. Fatty replacement is noted of the upper to mid thoracic spine bone marrow compatible with post radiation changes, with transition at the level of T8. Focal vertebral body hemangioma is rede monstrated within the posterior, inferior T9 vertebral body. Redemonstrated are postoperative laminec jeni changes spanning from T2-T3 to T5-T6, status post resection of thoraci c cord ependymoma. There is no significant interval change in the appea alex of flattening of the dorsally positioned thoracic spinal cord against the posterior dural of the thecal sac from the approximate level of T2-T3 through the mid vertebral body level of T5, with stable morphologic ivy nges of the spinal cord cephalad and caudal to the described postoperativ e deformity. Mildly expansile well-defined T2 prolongation is again de monstrated within the distal thoracic cord, extending from the approx imate level of the T10-T11 intervertebral disc space through the co nus medullaris. No abnormal enhancement is identified. 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 A lobular, heterogeneous collection bella g the midline dorsal paraspinal soft tissues at the level of surgery is again demonstrated, with interval reduced conspicuity of peripheral enhanc ement. The lesion measures approximately 6.9 cm craniocaudal by 2.0 cm AP by 1.5 cm transverse, unchanged compared to 12/16/2013 examina tion, though slightly progressed in size dating back to 11/13/2012. CONCLUSION: 1. ??Stable post treatment changes statu s post resection and radiation of thoracic spinal cord ependymoma, without evidence for residual/recurrent disease. 2. ??Redemonstrated morphologic changes of the thoracic spine at the levels of resection, demonstrating flattening a nd apparent adhesion to the posterior dura of the thecal sac from th e approximate level of T2-T3 through the mid T5 vertebral body level. 3. ?? Mildly expansile T2 prolongation w ithin the distal thoracic cord, extending from the level of T10-T11 thro ugh the conus medullaris, with partially imaged known sequelae of arach noiditis within the upper lumbar spine. Redemonstrated focal loculated CS F collection is noted anterior to the conus. 4. ??Stable heterogeneous, lobular colle ction along the midline dorsal paraspinal soft tissues at the level of surgery, measuring up to 6.9 cm craniocaudal. 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 TECHNIQUE: Multiplanar, multisequence MR imaging of the thoracic spine was performed prior to and following adminis tration of intravenous contrast. CONTRAST: 20 mL Magnevist COMPARISON: Prior MRI examinations of th e thoracic spine, last performed 12/16/2013, and dating back to 0. FINDINGS: Alignment is stable, with maintenance of vertebral body height throughout. Fatty replacement is noted of the upper to mid thoracic spine bone marrow compatible with post radiation changes, with transition at the level of T8. Focal vertebral body hemangioma is rede monstrated within the posterior, inferior T9 vertebral body. Redemonstrated are postoperative laminec jeni changes spanning from T2-T3 to T5-T6, status post resection of thoraci c cord ependymoma. There is no significant interval change in the appea alex of flattening of the dorsally positioned thoracic spinal cord against the posterior dural of the thecal sac from the approximate level of T2-T3 through the mid vertebral body level of T5, with stable morphologic ivy nges of the spinal cord cephalad and caudal to the described postoperativ e deformity. Mildly expansile well-defined T2 prolongation is again de monstrated within the distal thoracic cord, extending from the approx imate level of the T10-T11 intervertebral disc space through the co nus medullaris. No abnormal enhancement is identified. 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 A lobular, heterogeneous collection bella g the midline dorsal paraspinal soft tissues at the level of surgery is again demonstrated, with interval reduced conspicuity of peripheral enhanc ement. The lesion measures approximately 6.9 cm craniocaudal by 2.0 cm AP by 1.5 cm transverse, unchanged compared to 12/16/2013 examina tion, though slightly progressed in size dating back to 11/13/2012. CONCLUSION: 1. Stable post treatment changes status post resection and radiation of thoracic spinal cord ependymoma, without evidence for residual/recurrent disease. 2. Redemonstrated morphologic changes of the thoracic spine at the levels of resection, demonstrating flattening a nd apparent adhesion to the posterior dura of the thecal sac from th e approximate level of T2-T3 through the mid T5 vertebral body level. 3. Mildly expansile T2 prolongation with in the distal thoracic cord, extending from the level of T10-T11 thro ugh the conus medullaris, with partially imaged known sequelae of arach noiditis within the upper lumbar spine. Redemonstrated focal loculated CS F collection is noted anterior to the conus. 4. Stable heterogeneous, lobular collect ion along the midline dorsal paraspinal soft tissues at the level of surgery, measuring up to 6.9 cm craniocaudal. Garry Neff MD RAD MRI documented in this encounter Visit Diagnoses Not on filedocumented in this encounter Administered Medications Inactive Administered Medications - up to 3 most recent administrations Medication Order MAR Action Action Date Dose Rate Site gadopentetate dimeglumine (aka Given 09/07/2014 12:32 PM CDT 20 mL MAGNEVIST) 469.01 MG/ML injection 20 mL 20 mL, Intravenous, ONCE (NON-SCHEDULED), Starting on Sat09/07/14 at 1231, Until Sat09/07/14 at 1232, For 1 dose documented in this encounter Care Teams Dinkey Engine Firer Relationship Specialty Start Date End Date No Primary/Referring, Phy PCP - General 09/07/14 1 12/20/13 documented as of this encounter
--- OUTSIDE RECORDS SUMMARY | 2022-06-20 02:24 | XMS_ITS | Encounter Summary ---
:1945 Author [facility] Address [address] [address] Care Team Providers Name Role Phone Julien [...] Expiration Date Visits Requ ested Visits Authorized [id number] Closed 1 1 Encounter Details Date Type Department Care Team Description 10/20/[address] [place] [address] Social History Tobacco Use Types Packs/Day Years [...] Comme nts CT HEAD WO IV CONT STAT 10/20/2014 11:32 AM Re sults for this CAR TRIMMER procedure are i n the results section. documented in this encounter Results CT HEAD WITHOUT CONTRAST (10/20/2014 11:32 AM CAR TRIMMER) Anatomical Region Laterality Modality Head Computed Tomography Specimen (Source) Anatomical Collection Method Collection Time Re ceived Time Location / / Volume Laterality 10/20/2014 11:32 AM CAR TRIMMER Narrative 10/20/2014 11:52 AM CAR TRIMMER HEAD CT WITHOUT IV CONTRAST 10/20/2014 11:32 [...] on filedocumented in this encounter Care Teams Crystal Mounter Relationship Specialty Start Date End Date Julien Schafer MD PCP - General Internal Medicine 10/20/14 10/20/[address] [place] [address] documented as of this encounter
--- OUTSIDE RECORDS SUMMARY | 2022-06-20 02:25 | XMS_ITS | Encounter Summary ---
:1945 Author Organization [facility] Address [address] [address] Care Team Providers Name Role Phone Unavailable Primary Care Provider Unavailable Encounter Details Date Type Department Care Team Description 08/30/2014 Office Visit [facility] Shin Salvador T (deep venous thrombosis), bilateral (Primary Dx); Center at Namrata Ulloa MD Ependymoma; [address] SDH (subdural hematoma) [address] [place] [address] [phone] Social History Tobacco Use Types Packs/Day Years Used Date Smoking Tobacco: Never Smokeless Tobacco: Never Alcohol Use Standard Drinks/Week Comments No 0 (1 standard drink = 0.6 oz pure alcoho l) Sex Assigned at Date Recorded Male 08/06/2021 5:59 PM CDT documented as of this encounter Last Filed Vital Signs Vital Sign Reading Time Taken Comments Blood Pressure 100/61 08/30/2014 11:25 AM CDT Pulse 96 08/30/2014 11:25 AM CDT Temperature 36.3 ??C (97.3 ??F) 08/30/2014 11:25 AM CDT Respiratory Rate - - Oxygen Saturation - - Inhaled Oxygen Concentration - - Weight 112 kg (247 lb) 08/30/2014 11:25 AM CDT Height 175.3 cm (5' 9) 08/30/2014 11:25 AM CDT Body Mass Index 36.48 08/30/2014 11:25 AM CDT documented in this encounter Patient Instructions Patient InstructionsShin Salvador MD - 08/30/2014 6:23 AM CDT DIAGNOSIS: 1. 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 IVC filter placed year 1999 3. Hospitalization Sept for acute on chronic subdural hematoma evaculated with bur hole 07/28/14 withhistory of supratherapeutic INR 4.0 2 weeks prior--warfarin stopped 4. Hospitalization [facility] 08/20/14 for progressive DVT: lovenox and warfarin restarted PLAN: Continue warfarin with tight control of INR goal 2-2.[address] Salvador as previously arranged MD Jaki Angeles documented in this encounter Progress Notes Jennyfer Simpson RN - 08/30/2014 2:32 PM CDT Quick Note: Appointment today with Dr. Salvador. Results flagged for review. Jennyfer Simpson RN 08/30/2014, 2:32 PM Jennyfer Simpson RN - 08/30/2014 2:15 PM CDT RTC on 09/[address] Salvador. -No labs needed per . Jennyfer Simpson RN 08/30/2014, 2:15 PM Shin Salvador MD - 08/30/2014 11:58 AM CDT This office note has been dictated. Shin Salvador MD Shin Salvador MD - 08/30/2014 12:00 AM CDT DATE OF SERVICE: 08/30/2014 DIAGNOSES 1. 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 2. IVC (inferior vena cava) filter placed 1999. 3. Hospitalization 07/2014 for idtef-ud-hxwlwxk subdural hematoma, evacuated with a keegan hole 07/28/2014, with history of super therapeutic INR of 4.2 two weeks prior. The warfarin was stopped on that occasion. 4. [address]ization [address] [facility] 08/20/2014 for progression of right lower extremity deep vein thrombosis, as well as superficial thrombophlebitis of the left calf. He was reinitiatedon Lovenox and now it has been back on warfarin for the past [address] of the brain showsno evidence of recurrence of his bleed. SUBJECTIVE: The patient and his return for followup of history of recurrent deep vein thrombosis with serious bleeding complications of subdural hematoma. He is a 69-year-old man who is paraplegicdue to a prior ependymoma. He also has osteoporosis and has been on testosterone replacement. I saw him in the hospital in mid July and stopped his Coumadin. A limited hypercoagulable state workupconsisting of a lupus anticoagulant was negative at the time. He has an IVC filter in place and thushis warfarin was discontinued. Unfortunately, 2 weeks later he developed symptoms of recurrent DVT. He was hospitalized at [facility], where a DVT documented by ultrasound. He was placed back on Lovenox and has been on warfarin now for roughly 10 days. He has had no further bleeding. His INR has been well controlled at 2.2. He otherwise feels well. He has been somewhat depressed. OBJECTIVE: On physical exam there is paucity of speech. The lungs are clear. The face is symmetrical. He has compression stockings to the knees bilaterally. LABORATORIES: Show a white count of 5.1, hemoglobin 10.9, platelet count 237. The liver function tests are normal, as are the electrolytes, calcium, creatinine. INR is 2.2. ASSESSMENT: History of recurrent venous thrombosis in a 69-year-old man with paraplegia and IVC filter in place, but also subdural hematoma occurring 1 to 2 weeks after super therapeutic INR. PLAN: We have very limited options in terms of preventing clotting yet at the same time preventing serious, life-threatening bleeding. I will have him discontinue his testosterone, which may be contributing to the prothrombotic effect. I answered questions regarding fish oil and other jqgd-[id number]-pfwpfhk medications that are mild blood thinners. Will maintain tight control his INR at 2 to 2.5. He has followup with both me and Dr. Shelley in perhaps 2 weeks ago. Will repeat a CT then. We will delay his rhizotomy for 3 months. Shin Salvador MD [facility]:clr Dictated: 08/30/2014 12:02:45 Transcribed: 08/30/2014 14:52:44 Job: [id number] Doc: [id number] cc: documented in this encounter Plan of Treatment Not on filedocumented as of this encounter Procedures Procedure Name Priority Date/Time Associated Comments Diagnosis COMPLETE BLOOD STAT 08/30/2014 11:00 AM Ependymoma Result s for this COUNT-W/DIFF CDT procedure are i n the results section. LIVER PANEL(HEPATIC STAT 08/30/2014 11:00 AM Ependymoma R esults for this FUNCTION PANEL) CDT procedure ar e in the results section. BASIC METABOLIC STAT 08/30/2014 11:00 AM Ependymoma Resul ts for this PANEL CDT procedure are i n the results section. MAGNESIUM STAT 08/30/2014 11:00 AM Ependymoma Results for this CDT procedure are i n the results section. URIC ACID STAT 08/30/2014 11:00 AM Ependymoma Results for this CDT procedure are i n the results section. PHOSPHORUS STAT 08/30/2014 11:00 AM Ependymoma Results for this CDT procedure are i n the results section. LD TOTAL (LDH) STAT 08/30/2014 11:00 AM Ependymoma Result s for this CDT procedure are i n the results section. INR/PROTIME STAT 08/30/2014 11:00 AM Ependymoma Results for this CDT procedure are i n the results section. documented in this encounter Results (ABNORMAL) INR/PROTIME [0021] (08/30/2014 11:00 AM CDT) P athologist Signature Protime 24.2 (H) 12.0 - 14.5 [facility] INR 2.2 (H) 0.9 - 1.1 [facility] Specimen Anatomical Collection Method Collection Time Receive d Time (Source) Location / / Volume Laterality 08/30/2014 11:00 08/30/2014 AM CDT 11:13 AM CDT Narrative [facility] - 08/30/2014 11:29 AM C DT Performed at [facility] , [address] [place] [id number] Shin Salvador MD LAB_1 Performing Organization Address City/[facility]/ZIP [facility] Phon e Number [address] [address] URIC ACID [[id number]] (08/30/2014 11:00 AM CDT) P athologist Signature Uric Acid 6.0 3.5 - 8.5 [facility] mg[facility]dl [facility] Specimen Anatomical Collection Method Collection Time Receive d Time (Source) Location / / Volume Laterality 08/30/2014 11:00 08/30/2014 AM CDT 11:13 AM CDT [facility] - 08/30/2014 11:33 AM C DT Performed at [facility] , [address] [place] [id number] Shin Salvador MD LAB_1 Performing Organization [address] [facility]/ZIP [facility] Phon e Number [address] [address] PHOSPHORUS [0123] (08/30/2014 11:00 AM CDT) P athologist Signature Phosphorus 3.6 2.5 - 4.5 [facility] mg[facility]dl [facility] Specimen Anatomical Collection Method Collection Time Receive d Time (Source) Location / / Volume Laterality 08/30/2014 11:00 08/30/2014 AM CDT 11:13 AM CDT [facility] - 08/30/2014 11:33 AM C DT Performed at [facility] , [address] [place] [address] Shin Salvador MD LAB_1 Performing Organization Address City/[facility]/ZIP [facility] Phon e Number [address] [address] MAGNESIUM [[id number]] (08/30/2014 11:00 AM CDT) P athologist Signature Magnesium 1.8 1.6 - 2.3 [facility]dl [facility] Specimen Anatomical Collection Method Collection Time Receive d Time (Source) Location / / Volume Laterality 08/30/2014 11:00 08/30/2014 AM CDT 11:13 AM CDT [facility] - 08/30/2014 11:33 AM C DT Performed at [facility] , [address] [place] [id number] Shin Salvador MD LAB_1 Performing Organization Address [facility] Phon e Number [address] [address] LD TOTAL (LDH) [0122] (08/30/2014 11:00 AM CDT) P athologist Signature LD 458 188 - 575 [facility] Specimen Anatomical Collection Method Collection Time Receive d Time (Source) Location / / Volume Laterality 08/30/2014 11:00 08/30/2014 AM CDT 11:13 AM CDT [facility] - 08/30/2014 11:33 AM C DT Performed at [facility] , [address] [place] [id number] Shin Salvador MD LAB_1 Performing Organization Address [facility] Phon e Number [address] [address] (ABNORMAL) HEMOGRAM/PLTS/DIFF(aka CBC) [[id number]] (08/30/2014 11:00 AM CDT) Analysis Performed At Patho logist Time Signature WBC 5.1 4.0 - 11.0 [facility] RBC 3.57 (L) 4.5 - 5.9 [facility] Hemoglobin 10.9 (L) 13.5 - [facility] 17.5 g/dl HOSPITAL HCT 33.5 (L) 41.0 - [facility] 53.0 % HOSPITAL MCV 93.8 80 - 100 [facility] MCH 30.5 26 - 34 pg [facility] MCHC 32.5 32 - 36 [facility] g/ HOSPITAL RDW 14.2 11.5 - [facility] 14.5 % HOSPITAL Platelets 237 150 - 450 [facility] MPV 9.3 (L) 9.4 - 12.4 [facility] PMN/Band 42 % [facility] Lymph 42 % [facility] Patrick 7 % [facility] Eos 2 % [facility] Baso 0 % [facility]ITAL Neutrophil 2.1 1.8 - 7.7 [facility] Absolute [facility] Lymph Absolute 2.1 1.0 - 4.8 [facility] Patrick Absolute 0.4 0.1 - 0.7 [facility] Eos Absolute 0.1 0.0 - 0.5 [facility] Baso Absolute 0.0 0.0 - 0.2 [facility] Omer 7 % [facility] Omer Absolute 0.4 (H) 0 [facility] Specimen Anatomical Collection Method Collection Time Receive d Time (Source) Location / / Volume Laterality 08/30/2014 11:00 08/30/2014 AM CDT 11:13 AM CDT [facility] - 08/30/2014 12:03 PM C DT Performed at [facility] , [address] [place] [id number] Shin Salvador MD LAB_1 Performing Organization Address City/State/ZIP Code Phon e Number [address] [address] LIVER PANEL (Alk Phos, Bili Total and Direct, ALT, AST, Total Protein, Albumin, A/G Ratio) (08/30/2014 11:00 AM CDT) athologist Signature Alkaline 103 38 - 126 [facility] Phosphatase U/L [facility] Bilirubin, Total 0.5 0.2 - 1.3 [facility] mg/dl [facility] Bilirubin, 0.0 0.0 - 0.3 [facility] Direct mg/dl [facility] ALT (SGPT) 52 0 - 69 U/L [facility] AST (SGOT) 26 0 - 66 U/L [facility] Protein, Total 6.6 6.3 - 8.2 [facility] g/dl [facility] Albumin 3.6 3.5 - 5.0 [facility] g[facility]dl [facility] A/G Ratio, calc. 1.2 >1.0 [facility] Specimen Anatomical Collection Method Collection Time Receive d Time (Source) Location / / Volume Laterality 08/30/2014 11:00 08/30/2014 AM CDT 11:13 AM CDT Narrative [facility] - 08/30/2014 11:33 AM C DT Performed at [facility] , [address] [place] [id number] Shin Salvador MD LAB_1 Performing Organization Address [facility] Phon e Number [address] [address] (ABNORMAL) BASIC METABOLIC PANEL aka CHEM8 (Na, K, Cl, CO2, Gluc, BUN, Creat, Ca) [3690] (08/30/201411:00 AM CDT) athologist Signature Sodium 136 135 - 145 [facility] mmol/L [facility] Potassium 4.0 3.5 - 5.3 [facility] mmol/L [facility] Chloride 98 95 - 106 [facility] mmol/L [facility] CO2 29 22 - 30 [facility] mmol/L [facility] Anion Gap 9 7 - 16 [facility] (calc.) mmol/L [facility] Glucose 228 (H) 70 - 180 [facility] mg/dl [facility] Calcium 9.3 8.4 - 10.2 [facility] mg/dl [facility] BUN 12 7 - 20 [facility] mg/dl [facility] Creatinine 0.68 0.66 - [facility] 1.25 mg/dl [facility] GFR, Estimated >60 >60 [facility] ml/min/1.7 [facility] 3m2 GFR, Est., If >60 >60 [facility] Black ml/min/1.7 [facility] 3m2 Specimen Anatomical Collection Method Collection Time Receive d Time (Source) Location / / Volume Laterality 08/30/2014 11:00 08/30/2014 AM CDT 11:13 AM CDT Narrative [facility] - 08/30/2014 11:33 AM C DT Performed at [facility] , [address] [place] [id number] Shin Salvador MD LAB_1 Performing Organization Address City/[facility] Phon e Number [address] [address] documented in this encounter Visit Diagnoses Diagnosis DVT (deep venous thrombosis), bilateral - Primary 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, unspecified site SDH (subdural hematoma) ([facility]) Subdural hemorrhage documented in this encounter
--- OUTSIDE RECORDS SUMMARY | 2022-06-20 02:25 | XMS_ITS | Encounter Summary ---
:1945 Author Organization [employer] Address [address] [address] Care Team Providers Name Role Phone Unavailable Primary Care Provider Unavailable Encounter Details Date Type Department Care Team Description 08/09/2014 Notes/Orders Specialty Center Sylvia Washington SDH (subdural 401 NeuroSurgery R, RN hematoma) (Primary Dx) [address] [place] [address] [place], [place] [phone] Social History Tobacco Use Types Packs/Day Years Used Date Smoking Tobacco: Never Smokeless Tobacco: Never Alcohol Use Standard Drinks/Week Comments No 0 (1 standard drink = 0.6 oz pure alcoho l) Sex Assigned at Date Recorded Male 08/06/2021 5:59 PM CDT documented as of this encounter Nursing Notes Sylvia Washington RN - 08/09/2014 12:50 PM CDT Please see 08/03/14 telephone encounter with Heme MD Dr. Salvador. Plan is for neurosurgery to see patient prior to Heme, their appointment with pt has been rescheduled out until 09/20/14. Dr. Shelley is scheduled to see pt on 09/17/14, and head CT is currently scheduled for prior to appt that day. Our team originally ordered [address], one to be done before our appt, and one to be done 2 weeks after discharge, prior to heme appt, per their original request. Confirmed with team that it is ok from neurosurgery perspective to have head CT in September, he doesnot need to be scanned sooner than that. Second head CT order cancelled per ROXY Barnes order. Sylvia Washington RN 08/09/2014, 12:56 PM documented in this encounter Plan of Treatment Not on filedocumented as of this encounter Visit Diagnoses Diagnosis SDH (subdural hematoma) (HRC) - Primary Subdural hemorrhage documented in this encounter
--- OUTSIDE RECORDS SUMMARY | 2022-06-20 02:25 | XMS_ITS | Encounter Summary ---
:1945 Author Organization [employer] Address [address] [address] Care Team Providers Name Role Phone Unavailable Primary Care Provider Unavailable Reason for Visit Reason Comments Revisit f/u surgery--brain bleed Encounter Details Date Type Department Care Team Description 08/19/2014 Office Visit Specialty Center 401 Zelalem Cohen umbar spondylosis Interventional Pain L, DO (Primary Dx) Management [address] [place] [address] [phone] Social History Tobacco Use Types Packs/Day Years Used Date Smoking Tobacco: Never Smokeless Tobacco: Never Alcohol Use Standard Drinks/Week Comments No 0 (1 standard drink = 0.6 oz pure alcoho l) Sex Assigned at Date Recorded Male 08/06/2021 5:59 PM CDT documented as of this encounter Last Filed Vital Signs Vital Sign Reading Time Taken Comments Blood Pressure 136/77 08/19/2014 1:49 PM CDT Pulse 96 08/19/2014 1:49 PM CDT Temperature - - Respiratory Rate - - Oxygen Saturation - - Inhaled Oxygen Concentration - - Weight - - Height - - Body Mass Index - - documented in this encounter Progress Notes Zelalem Cohen MD - 08/19/2014 8:46 PM CDT Pain clinic follow up visit: Subjective: recent d/c from hospital d/t MORAN and now s/p open right frontoparietal craniotomy with open right frontal evacuation of subdural hematoma, d/c on 08/02 No MORAN, doing well. Off coumadin. Main c/o is continued low back pain, hx of SCI. Had diagnostic facet blocks done at [facility], did great, pending RFA on 08/27. Off tizanidine. Continues on vicodin, neurontin, cymbalta. Feels better mentally off tizanidine. Objective: Filed Vitals: 08/19/14 1349 BP: 136/77 Pulse: 96 Gen: nad, a/o In w/c present Scar top of head c/d/i Assessment: 1. S/p open right frontoparietal craniotomy with open right frontal evacuation of subdural hematoma. 2. Chronic back pain, facet 3. Hx of SCI Plan of Care: 1. F/u with [facility] for RFA as scheduled 2. No new changes in medications 3. F/u in one month to re-eval medications, and potentially taper neurontin assuming he does well with RFA 4. F/u with Dr. Shelley in neurosurgery Zelalem Cohen MD 08/19/2014, 8:46 PM documented in this encounter Plan of Treatment Not on filedocumented as of this encounter Visit Diagnoses Diagnosis Lumbar spondylosis (HRC) - Primary Lumbosacral spondylosis without myelopat hy documented in this encounter
--- OUTSIDE RECORDS SUMMARY | 2022-06-20 02:25 | XMS_ITS | Encounter Summary ---
:1945 Author Organization [facility] Address [address] [address] Care Team Providers Name Role Phone Loretta Mcmahan MD Primary Care Provider Unavailable Reason for Visit Reason Onset Date Comments Other 08/17/2014 Encounter Details Date Type Department Care Team Description 08/17/2014 Telephone [facility] Trudi Raymundo, PT Other Physical Therapy [address] [place] [address] [place] [address] [phone] Social History Tobacco Use Types Packs/Day Years Used Date Smoking Tobacco: Never Smokeless Tobacco: Never Alcohol Use Standard Drinks/Week Comments No 0 (1 standard drink = 0.6 oz pure alcoho l) Sex Assigned at Date Recorded Male 08/06/2021 5:59 PM CDT documented as of this encounter Nursing Notes Trudi Raymundo, PT - 08/17/2014 10:35 AM CDT Spoke with patient's spouse, Heather, regarding Jeff's progress. He had an instance of a SDH and required an emergency craniotomy on 07/28/14. He was hospitalized on 07/28/14 and discharged home on 08/02/14. He did not have physical therapy after discharging home. PT and OT evaluated the patient while hewas hospitalized to ensure he was baseline to discharge home. Recommendations given to patient's spouse that we should have him come back in after having an angiogram (08/30/14) and a rhizotomy (08/27/20) to reassess for any changes to ensure that the current power wheelchair that is being recommended is still appropriate. Patient's to schedule the appointment. documented in this encounter Plan of Treatment Not on filedocumented as of this encounter Visit Diagnoses Not on filedocumented in this encounter Care Teams Service Planner Relationship Specialty Start Date End Date Loretta Mcmahan MD PCP - General Family Practice 10/21/1402/10 documented as of this encounter
--- OUTSIDE RECORDS SUMMARY | 2022-06-20 02:25 | XMS_ITS | Encounter Summary ---
:1945 Author Organization [facility] Address [address] [address] Care Team Providers Name Role Phone Unavailable Primary Care Provider Unavailable Reason for Visit Reason Onset Date Comments QUESTIONS, REFERRAL 08/03/2014 QUESTIONS, GENERAL 08/03/2014 Encounter Details Date Type Department Care Team Description 08/03/2014 Telephone [facility] Shin Salvador QU ESTIONS, REFERRAL; Center at [facility] MD Artemio [facility], [address] [address] [phone] Social History Tobacco Use Types Packs/Day Years Used Date Smoking Tobacco: Never Smokeless Tobacco: Never Alcohol Use Standard Drinks/Week Comments No 0 (1 standard drink = 0.6 oz pure alcoho l) Sex Assigned at Date Recorded Male 08/06/2021 5:59 PM CDT documented as of this encounter Nursing Notes Britany Ann RN - 08/09/2014 4:46 PM CDT Patient scheduled for U/S on 09/20 prior to MD appointment Britany Ann RN 08/09/2014, 4:46 PM Britany Ann RN - 08/09/2014 4:03 PM CDT Left message stating it was okay for an US to be done prior to Jeff's upcoming appointment. I instructed they could call the clinic if they would like assistance scheduling it. Britany Ann RN 08/09/2014, 4:04 PM Shin Salvador MD - 08/09/2014 2:59 PM CDT Ok for US--orders placed Shin Salvador MD Britany Knox RN - 08/04/2014 1:01 PM CDT Call returned to Heather. She wants to know if Dr Salvador would be willing to repeat an US of legs prior to his upcoming appt? Just to see if there's been any change since he's off coumadin this whole time. Heather would like Dr Salvador to advise regarding whether or not he will order an US. She understands that Dr Salvador is not in clinic again until next week so she will likely hear back then. Britany Knox RN 08/04/2014, 1:20 PM Trudi Mendez - 08/04/2014 12:08 PM CDT Pt changed appt dates but still has questions Britany Knox RN - 08/04/2014 11:[address] Salvador is not in the office on 09/17 which is when pt sees neurosurgeyr. Dr Salvador would like pt to see him after CT and neurosurg appt. Detailed message left for Jeff and Heathre stating results per MD note below as well as follow up recommendations from Dr Salvador. Requested call back from patient to reschedule his 09/02/14 appt until after 09/17/14 appt with neurosurgery. Britany Knox RN 08/04/2014, 11:15 AM Shin Salvador MD - 08/04/2014 11:06 AM CDT Please advise pt/: Lab testing for antiphospholipid antibody (lupus anticoagulant and anticardiolipin) was negative I believe NSG was going to see him abd order head CT [facility] Could we coordinate f/u with me on same day as NSG? Shin Salvador MD Genny Duncan - 08/03/2014 3:56 PM CDT calling with [address] Salvador on 09/02/14. Inpatient RN mentioned during discharge instructions that a CT would be ordered by Hematology prior to seeing Dr. Salvador. I could not find the note that stated that. 2nd question is they had blood work up Inpatient and is wondering if results will be called to them or do they have to wait until they see Dr. Salvador before getting results. Please advise. CW 08/03/2014 4:01 PM documented in this encounter Plan of Treatment Not on filedocumented as of this encounter Visit Diagnoses Diagnosis DVT (deep venous thrombosis), bilateral - Primary documented in this encounter
--- OUTSIDE RECORDS SUMMARY | 2022-06-20 02:25 | XMS_ITS | Encounter Summary ---
:1945 [facility] Address [address] [place] [address] Care Team Providers Name Role Phone Unavailable Primary Care Provider Unavailable Encounter Details Date Type Department Care Team Description 08/10/2014 Orders Only External to Alfonso Neff MD [address] [place] [phone] (Wo rk) Social History Tobacco [...] Date/Time Associated Diagnosis Comme nts OUTSIDE IMAGING 08/10/2014 12:00 AM Resul ts for this CDT procedure are i n the results section. documented in this encounter Results OUTSIDE IMAGING (08/10/2014 12:00 AM CDT) Anatomical Region Laterality Modality Other Specimen (Source) Anatomical Location Collection Method / Collectio n Time Received Time / Laterality Volume 08/10/2014 Narrative This result has an attachment that is no t available. RAD_1 documented in this encounter Visit Diagnoses Not on filedocumented in this encounter
--- OUTSIDE RECORDS SUMMARY | 2022-06-20 02:25 | XMS_ITS | Encounter Summary ---
:1945 [facility] Organization [facility] Address [address] [place] [address] Care Team Providers Name Role Phone Unavailable Primary Care Provider Unavailable Reason for Visit Procedure/Equipment (Routine) - Incomplete Specialty Diagnoses / Procedures Referred By Contact Refer red To Contact Procedures Shin Salvador MD CT HEAD (ADULT) WITH OUT [address] [place] [address] Referral ID Status Reason Start Date Expiration Date Visits V isits Requested Authorized [id number] Incomplete 08/23/2014 1 1 Encounter Details Date Type Department Care Team Description 08/26/2014 [facility] Shin Salvador MD [place] [facility] [address] [place] [address] [place] [address] [phone] Social History Tobacco Use Types Packs/Day Years [...] nts CT HEAD WO IV CONT Routine 08/26/2014 12:22 PM Re sults for this CDT procedure are i n the results section. documented in this encounter Results CT HEAD (ADULT) WITH OUT CONTRAST (08/26/2014 12:22 PM CDT) Anatomical Region Laterality Modality Head Computed Tomography Specimen (Source) Anatomical Collection Method Collection Time Re ceived Time Location / / Volume Laterality 08/26/2014 12:22 PM CDT Narrative 08/26/2014 3:36 PM CDT SPECIALTY CTR II CT HEAD WO CONT 08/26/2014 12:22 PM INDICATION: Followup subdural hematoma. TECHNIQUE: Serial axial images were obta ined through the brain without contrast. CONTRAST: None. SEDATION: None. COMPARISON: CT brain 07/31/2014 and 08/11. FINDINGS: Prior right parietal craniotom y. Previously seen shallow subdural collection along the right parietal inn er table has largely resolved in the interval with minimal residual inter mediate to low attenuation material seen immediately deep to the right klaus etal inner table. No significant mass effect or midline shift. Ventricles are stable in size. Ta-white matter differentiation is preserved. Calvarium is otherwise intact. Visualize d paranasal sinuses, middle ear cavities, and mastoid air cells are demetrio r. Orbits are unremarkable. IMPRESSION: 1. Previously seen right frontoparietal subdural collection has almost completely resolved in the interval, wit h trace residual intermediate to low attenuation material seen in the reg ion of the prior right craniotomy. 2. No findings to suggest hemorrhage, ma ss, or acute infarct. Procedure Note Kai Fajardo II, MD - 08/26/2014Formatti ng of this note might be different from the original. SPECIALTY CTR II CT HEAD WO CONT 08/26/2014 12:22 PM INDICATION: Followup subdural hematoma. TECHNIQUE: Serial axial images were obta ined through the brain without contrast. CONTRAST: None. SEDATION: None. COMPARISON: CT brain 07/31/2014 and 08/11. FINDINGS: Prior right parietal craniotom y. Previously seen shallow subdural collection along the right parietal inn er table has largely resolved in the interval with minimal residual inter mediate to low attenuation material seen immediately deep to the right klaus etal inner table. No significant mass effect or midline shift. Ventricles are stable in size. Ta-white matter differentiation is preserved. Calvarium is otherwise intact. Visualize d paranasal sinuses, middle ear cavities, and mastoid air cells are demetrio r. Orbits are unremarkable. IMPRESSION: 1. Previously seen right frontoparietal subdural collection has almost completely resolved in the interval, wit h trace residual intermediate to low attenuation material seen in the reg ion of the prior right craniotomy. 2. No findings to suggest hemorrhage, ma ss, or acute infarct. Shin Salvador MD RAD CT documented in this encounter Visit Diagnoses Not on filedocumented in this encounter
--- OUTSIDE RECORDS SUMMARY | 2022-06-20 02:25 | XMS_ITS | Encounter Summary ---
:1945 Author Organization [facility] Address [address], [place] [address] Care Team Providers Name Role Phone Unavailable Primary Care Provider Unavailable Reason for Visit Reason Onset Date Comments NUMBNESS 08/10/2014 Encounter Details Date Type Department Care Team Description 08/10/2014 Telephone Specialty Center 401 Yordy Shelley MD [facility] NeuroSurgery [address] [facility] [address] [place] [address] [phone] (Wo rk) Social History Tobacco Use Types Packs/Day Years Used Date Smoking Tobacco: Never Smokeless Tobacco: Never Alcohol Use Standard Drinks/Week Comments No 0 (1 standard drink = 0.6 oz pure alcoho l) Sex Assigned at Date Recorded Male 08/06/2021 5:59 PM CDT documented as of this encounter Nursing Notes Cristy Rodrigues RN - 08/17/2014 2:32 PM CDT Spoke with Heather, pt's , to relay information. She expresses gratitude and states pt's numbness has resolved. Let her know symptoms may return intermittently while healing is going on. Pt is still taking his Keppra and will continue until f/u with Dr. Shelley on 09/17. Cristy Rodrigues RN 08/17/2014, 2:33 PM Sylvia Washington RN - 08/17/2014 2:[address] Shelley reviewed the head CT done on 08/11/14. He states it looks good, stable, no new bleeds. He would say at this point the intermittent LUE numbness could be residual from healing, and for pt to continue to monitor. They should monitor for headaches and new weaknesses and call if these occur. He should continue taking the keppra as prescribed for seizure prevention. RN to call pt with this update. Sylvia Washington RN 08/17/2014, 2:14 PM Sylvia Washington RN - 08/17/2014 8:27 AM CDT CD arrived today, will have Dr. Shelley review. Sylvia Washington RN 08/17/2014, 8:27 AM Sylvia Washington RN - 08/10/2014 1:35 PM CDT Will route to end of the week to watch for CD of imaging. Sylvia Washington RN 08/10/2014, 1:35 PM Sylvia Washington RN - 08/10/2014 12:40 PM CDT Discussed with Dr. Shelley. He states that intermittent numbness, without any headaches or new weaknesses, would not be overly concerning, however, we should get a head CT in the next day or two to make sure there is not recurrent bleeding or other issues. Called pt back, answered. She states that over the weekend they first noticed the numbness. Started on Saturday lasted for a while, went away on its own. Sometimes the whole hand goes numb, sometimes the fingers. Just numbness, no weakness when this happens, not dropping anything, no loss of gripstrength. She states he has not had any headaches at all. Informed her of Dr. Shelley's order for a head CT in the next day or two, she agrees with this plan. Faxed CT order to pts nearby hospital as he is far from us, [facility], will call them to schedule. They will mail us a CD of imaging to review, radiologist to call with any urgent findings. Instructed pts to call sooner if any worsening of symptoms or any new symptoms. Pts is agreeable and states understanding of plan, questions have been answered. Sylvia Washington RN 08/10/2014, 1:28 PM Jase Antonio - 08/10/2014 10:31 AM CDT Pt's stated pt is having reoccurring numbness in the left hand and forearm, it comes and goes about once a day. She would like a call back from either Sylvia or Molly to discuss questions and concerns. documented in this encounter Plan of Treatment Not on filedocumented as of this encounter Visit Diagnoses Diagnosis SDH (subdural hematoma) (HRC) - Primary Subdural hemorrhage documented in this encounter
--- OUTSIDE RECORDS SUMMARY | 2022-06-20 02:25 | XMS_ITS | Encounter Summary ---
:1945 Author [facility] Address [address], [place] [address] Care Team Providers Name Role Phone Franklin Squires MD Primary Care Provider Encounter Details Date Type Department Care Team Description 08/22/2014 Outside Hospital External to [facility]-D/C SUMMARY Social History Tobacco Use Types Packs/Day Years [...] on filedocumented in this encounter Care Teams Magnetic Tape Winder Relationship Specialty Start Date End Date Franklin Squires MD PCP - General Family Practice 03/08/[address] [place], [place] [address]LES Wong [phone] documented as of this encounter
--- OUTSIDE RECORDS SUMMARY | 2022-06-20 02:25 | XMS_ITS | Encounter Summary ---
:1945 Author [facility] Address [address], [place] [address] Care Team Providers Name Role Phone Franklin Squires MD Primary Care Provider Encounter Details Date Type Department Care Team Description 08/20/2014 Outside Hospital External to [facility]-ADMIT H/P Social History Tobacco Use Types Packs/Day Years [...] on filedocumented in this encounter Care Teams Cigar Head Perforator Relationship Specialty Start Date End Date Franklin Squires MD PCP - General Family Practice 03/08/[address] [place], [place] [address]LES Wong [phone] documented as of this encounter
--- OUTSIDE RECORDS SUMMARY | 2022-06-20 02:25 | XMS_ITS | Encounter Summary ---
:1945 Author Organization [facility] Address [address] [place] [address] Care Team Providers Name Role Phone No Primary/Referring, Phy Primary Care Provider Unavailable Encounter Details Date Type Department Care Team Description 08/20/2014 Orders Only External to [facility] Social History Tobacco Use Types Packs/Day Years [...] Date/Time Associated Diagnosis Comme nts CT HEAD 08/20/2014 12:00 AM Results for this CDT procedure are i n the results section . documented in this encounter Results CT HEAD (08/20/2014 12:00 AM CDT) Anatomical Region Laterality Modality Other Specimen (Source) Anatomical Location Collection Method / Collectio n Time Received Time / Laterality Volume 08/20/2014 Narrative This result has an attachment that is no t available. Provider Lees Nw DUMMY/OTHER/AR documented in this encounter Visit Diagnoses Not on filedocumented in this encounter Care Teams Finished Garment Inspector Relationship Specialty Start Date End Date No Primary/Referring, Phy PCP - General 09/07/14 1 12/20/13 documented as of this encounter
--- OUTSIDE RECORDS SUMMARY | 2022-06-20 02:25 | XMS_ITS | Encounter Summary ---
:1945 Author Organization [facility] Address [address] [place] [address] Care Team Providers Name Role Phone Unavailable Primary Care Provider Unavailable Reason for Visit Reason Onset Date Comments SWELLING, LEG 08/20/2014 Encounter Details Date Type Department Care Team Description 08/20/2014 Telephone Careline Unknown, Physician SWELLING, LEG [address] [place], [place] [address] [place], [place] [phone] (Wo rk) Social History Tobacco Use Types Packs/Day Years Used Date Smoking Tobacco: Never Smokeless Tobacco: Never Alcohol Use Standard Drinks/Week Comments No 0 (1 standard drink = 0.6 oz pure alcoho l) Sex Assigned at Date Recorded Male 08/06/2021 5:59 PM CDT documented as of this encounter Nursing Notes Avelina Pérez, RN - 08/20/2014 9:26 AM CDT Pt had emergent surgery with Dr Shelley at [facility] for hematoma. Not on coumadin since then and before then and last had it Jul 23. Dr Salvador seen due to clotting. They are both involved in his care. Pt called clinic two days ago due to swelling in legs and he got a a water pill. With hx blood clots. Has vena cava filter since 1999 IVC. TRIAGE REFERENCE: LEG PAIN - CNG ADULT CNG (c) 2013 STAT SYMPTOMS: One leg larger than the other Leg pain is associated with any sudden change in circulation, sensation, or motor function of dependent extremity Location: right calf more swelled, onset: two days Tenderness: not sure due to paraplegic status Warmth: yes Trauma: no CMS and color is WNL: no Ankle swelling: both ankles Predisposing factors: Recent surgery: See above, History DVT: yes, Prolonged periods in one positions (bed rest, traveling), Over 60 years old Accompanying symptoms (fever, SOB, chest pain): PMH: Patient Active Problem List Diagnosis ??? Ependymoma ??? Fever ??? Probable Bacterial Meningitis ??? DVT (Deep Venous Thrombosis) ??? Neurogenic Bladder ??? HTN (Hypertension) ??? CAREPLAN: BACLOFEN ??? Osteoporosis ??? Paraplegia ??? Hyperparathyroidism ??? Vitamin D deficiency ??? Gait abnormality ??? Back pain CURRENT MEDICATIONS: Current Outpatient Prescriptions Medication Sig ??? atorvastatin (LIPITOR) 40 MG tablet Take 1 Tab by mouth daily. ??? baclofen (AKA LIORESAL) 20 MG tablet Take 2 Tabs by mouth three times a day. ??? Calcium-Vitamin D (CALTRATE 600 PLUS-VIT D OR) Take 2 Caps by mouth daily. ??? cholecalciferol (AKA VITAMIN D3) 1000 UNIT tablet Take 2 Tabs by mouth daily. ??? DULoxetine (CYMBALTA) 20 MG capsule Take 4 Caps by mouth daily. ??? gabapentin (AKA NEURONTIN) 400 MG capsule [...] LORazepam (AKA ATIVAN) 0.5 MG tablet Take 2 Tabs by mouth three times a day. ??? Multiple Vitamins-Minerals (CENTRUM SILVER OR) ??? niacin 500 MG tablet Take 500 mg by mouth daily with breakfast. ??? polyethylene glycol (AKA MIRALAX) packet Take 17 g by mouth daily. ??? TESTOSTERONE TD Patch ??? TRIMETHOPRIM OR Take 100 mg by mouth daily. MEDICATION ALLERGIES: Allergies Allergen Reactions ??? Oxycodone Other, see comments Delirium ??? Zaroxolyn [Sulfa Drugs] Rash HOME TREATMENT: discussed per guideline Suspected DVT: Bed rest No massaging of area CALL STAT for sudden SOB, fever-spike, redness, pain or tenderness PLAN: Er in [place] where they live to check sx for possible blood clot. asked if in agreement with plan of care. verbalized understanding and agreeable to plan. advised to have pt be seen immediately or call back if questions or problems or worsening sx as careline is open 03/06 and can speak with any nurse as needed. Avelina Lara, Careline RN. Malathi Velásquez - 08/20/2014 9:22 AM CDT Which care system or clinic is the patient normally seen at? [facility]. [facility] would like me to ask all callers, If the CareLine was not available, what would you have done?Seek ER Care. Situation:Pt has swelling in his legs - a lot in right calf. Recently had surgery on 07/28/14. Plan:Call transferred directly to CareLine nurse. documented in this encounter Plan of Treatment Not on filedocumented as of this encounter Visit Diagnoses Not on filedocumented in this encounter
--- OUTSIDE RECORDS SUMMARY | 2022-06-20 02:25 | XMS_ITS | Encounter Summary ---
:1945 Author Organization [facility] Address [address], [place] [address] Care Team Providers Name Role Phone Unavailable Primary Care Provider Unavailable Encounter Details Date Type Department Care Team Description 08/09/2014 Procedure Visit [facility] Tevin Alves, Radiology [address] [place] [id number] [place] [address] [phone] (Wo rk) Social History Tobacco Use Types [...]
--- OUTSIDE RECORDS SUMMARY | 2022-06-20 02:25 | XMS_ITS | Encounter Summary ---
:1945 Author Organization [facility] Address [address], [place] [address] Care Team Providers Name Role Phone Unavailable Primary Care Provider Unavailable Reason for Visit Reason Onset Date Comments QUESTIONS, GENERAL 08/23/2014 Encounter Details Date Type Department Care Team Description 08/23/2014 Telephone Specialty Center 401 Yordy Shelley MD QUESTIONS, GENERAL NeuroSurgery 3931 [facility] [address] [place] [address] [phone] (Wo rk) Social History Tobacco Use Types Packs/Day Years Used Date Smoking Tobacco: Never Smokeless Tobacco: Never Alcohol Use Standard Drinks/Week Comments No 0 (1 standard drink = 0.6 oz pure alcoho l) Sex Assigned at Date Recorded Male 08/06/2021 5:59 PM CDT documented as of this encounter Nursing Notes Cristy Rodrigues RN - 08/23/2014 9:05 AM CDT Spoke with pt's , she wants to make sure Dr. Shelley is still ok with pt having the angiogram d/t recent blood clots. Advised that it should be addressed with Dr. Salvador's office if pt is even ok to go off anticoagulation at this point. If he needs to stay on them, we would be ok with waiting on angiogram. She expresses understanding and will contact Dr. Salvador's office Cristy Rodrigues RN 08/23/2014, 9:14 AM Molly Diaz PA-C - 08/23/2014 8:38 AM CDT Regarding rhizotomy--unsure who provider is performing rhizotomy but this should be routed to that provider for their opinion. Pt was found to have occlusive RLE DVT on 08/20/14 and placed on lovenox per hematology recs at that time. Would defer to hematology on whether or not he is ok to be off anticoagulation for these procedures but I am assuming they will say he needs to continue anticoagulation.If that is the case, he can hold off on angiogram, this was being done as a precaution to ensure there was no AVM. Will need clarification from other teams (hematology primarily) to determine his ability to be off anticoagulation. Molly Diaz PA-C Paco, Jase Garcia - 08/23/2014 8:31 AM CDT Pt's stated pt is to have a rhizotomy this Saturday, pt is to be off his blood thinners. Pt is also scheduled for a angiogram on 08/30. She is wondering if someone can call back to confirm if its okto do all this since pt recently had a leg blood clot. She is hoping for a call back this morning since pt is scheduled for a pre op physical (for the angiogram) this afternoon, she would like to know prior to the pre op so they can cancel if its recommended they hold off on the angiogram. Please try home or her cell at [phone]. documented in this encounter Plan of Treatment Not on filedocumented as of this encounter Visit Diagnoses Not on filedocumented in this encounter
--- OUTSIDE RECORDS SUMMARY | 2022-06-20 02:25 | XMS_ITS | Encounter Summary ---
:1945 Author Organization [employer] [facility] [employer] Address [address] [place] [address] Care Team Providers Name Role Phone Unavailable Primary Care Provider Unavailable Encounter Details Date Type Department Care Team Description 08/20/2014 Telephone Specialty Center 401 Molly Diaz PA-C NeuroSurgery 3931 [facility] [address] [facility] [place] [address] [place], [place] [id number] [phone] Social History Tobacco Use Types Packs/Day Years Used Date Smoking Tobacco: Never Smokeless Tobacco: Never Alcohol Use Standard Drinks/Week Comments No 0 (1 standard drink = 0.6 oz pure alcoho l) Sex Assigned at Date Recorded Male 08/06/2021 5:59 PM CDT documented as of this encounter Nursing Notes Kemar Hughes MD - 08/21/2014 3:07 PM CDT I did receive a phone call on this patient. Of note, I actually specifically recommended starting with prophylactic doses of enoxaparin given his recent severe intracranial bleeding. I asked them to obtain head imaging to confirm ongoing resolution/stability of his bleed. I let them know that if prophylactic doses of enoxaparin were tolerated without bleeding then therapy doses could be considered. If the neurosurgery team feels that therapeutic doses of enoxaparin are appropriate in this setting based on the resolution of his bleeding then that is reasonable. Dr. Salvador is scheduled to see the patient in September. I have routed this message to his care team to see if he feels earlier follow-up would be appropriate. Kemar Hughes MD 08/21/2014, 3:09 PM Molly Diaz PA-C - 08/20/2014 2:28 PM CDT Call was transferred to myself from physician at [place] ED. Pt known to myself from recent spontaneous SDH evacuation on 07/28/[address] Cooper Shelley. Pt has hx of LE paralysis and DVT. He had doppler while hospitalized at [facility] that showed BLE non occlusive DVTs. Pt was previously on coumadin forDVT hx (although subtherapeutic at time of SDH for prior lumbar injection) and has IVC filter placedin 1999. Pt was sent to ED in [place] today for RLE edema. Doppler today in [place] shows RLE occlusive DVT. Physician there spoke with hematology, Dr. Hughes here who recommended therapeutic lovenox. Pthad head CT on 08/10 that, per report (as told by ED physician) stated near resolution of hematoma. In setting of occlusive thrombus with recommendations from hematology of starting therapeutic lovenox with no real other options, recommended repeating head CT. As long as this is stable or improved in terms of hemorrhage when compared with 08/10, ok to start therapeutic lovenox. Repeat head CT 24 hours after starting lovenox to ensure no rehemorrhage, and then ok to bridge to coumadin. Instructed physician there to contact neurosurgery multimedia production assistant, Dr. Solis, if any questions over the weekend. [place] provider had hoped to transfer pt to [facility] but apparently [facility] full. Recommend sooner follow up with hematology (currently scheduled for 09/[address] Salvador), as this had previously been arranged to resume anticoagulation after 6 week follow up head CT when pt had non occlusive DVT and filter. Will route to neurosurgery as FYI as well as hematology to have sooner follow up with patient. Molly Diaz PA-C, 08/20/2014, 2:36 PM Neurosurgery [phone] documented in this encounter Plan of Treatment Not on filedocumented as of this encounter Visit Diagnoses Not on filedocumented in this encounter
--- OUTSIDE RECORDS SUMMARY | 2022-06-20 02:25 | XMS_ITS | Encounter Summary ---
:1945 Author Organization [facility] Address [address] [address] Care Team Providers Name Role Phone Franklin Squires MD Primary Care Provider Encounter Details Date Type Department Care Team Description 08/20/2014 Outside Hospital External to [facility] Social History Tobacco Use Types Packs/Day Years [...] on filedocumented in this encounter Care Teams Joinery Machinist Relationship Specialty Start Date End Date Franklin Squires MD PCP - General Family Practice 03/08/[address] [place], [place] [address]LES Wong [id number] documented as of this encounter
--- OUTSIDE RECORDS SUMMARY | 2022-06-20 02:25 | XMS_ITS | Encounter Summary ---
:1945 Author Organization [facility] Address [address], [place] [address] Care Team Providers Name Role Phone Unavailable Primary Care Provider Unavailable Reason for Visit Reason Onset Date Comments Medication Questions 08/04/2014 Encounter Details Date Type Department Care Team Description 08/04/2014 Telephone Specialty Center 401 Zelalem Cohen edication Questions Interventional Pain L, DO Management [address] [place] [phone] Social History Tobacco Use Types Packs/Day Years Used Date Smoking Tobacco: Never Smokeless Tobacco: Never Alcohol Use Standard Drinks/Week Comments No 0 (1 standard drink = 0.6 oz pure alcoho l) Sex Assigned at Date Recorded Male 08/06/2021 5:59 PM CDT documented as of this encounter Nursing Notes Loree Garcia RN - 08/05/2014 2:32 PM CDT Patient's notified that he needs to be seen in follow up- hold on the Tizanidine. Appt scheduled and verbalized understanding Zelalem Cohen MD - 08/04/2014 8:12 PM CDT No would hold on this Needs to f/u Dr. Benito Cohen Loree Garcia RN - 08/04/2014 4:22 PM CDT Spoke with his - his recent hospitalization they stopped the Tizanidine. However, she says he ishaving increased muscle spasms since being off- wants to confirm that it is okay to resume this. They have the medication on hand so they don't need a refill right now. Loree Garcia RN - 08/04/2014 4:03 PM CDT LMTCB at home number. Jazmin Bryant - 08/04/2014 3:33 PM CDT Pt is calling regarding message below. Please advise Asia Dwyer - 08/04/2014 9:43 AM CDT Pt calling stating that pt was taken off of Tizanidine and is having back pain and spasms again. Would like to know if pt can get back on the medication. Please advise documented in this encounter Plan of Treatment Not on filedocumented as of this encounter Visit Diagnoses Not on filedocumented in this encounter
--- OUTSIDE RECORDS SUMMARY | 2022-06-20 02:25 | XMS_ITS | Encounter Summary ---
:1945 Author Organization [facility] Address [address] [place] [address] Care Team Providers Name Role Phone Unavailable Primary Care Provider Unavailable Reason for Visit Reason Comments Post Hospital Discharge Follow Up Encounter Details Date Type Department Care Team Description 08/03/2014 Telephone Supervisor Pre Wave Charan Aguilar, RN Post Hospital [address] - [facility] [place] [id number] [facility] [address] [place] [address] [place] [address] Social History Tobacco Use Types Packs/Day Years Used Date Smoking Tobacco: Never Smokeless Tobacco: Never Alcohol Use Standard Drinks/Week Comments No 0 (1 standard drink = 0.6 oz pure alcoho l) Sex Assigned at Date Recorded Male 08/06/2021 5:59 PM CDT documented as of this encounter Nursing Notes Charan Aguilar RN - 08/03/2014 3:27 PM CDT Jeff Cullen was hospitalized for Sdh (subdural hematoma) (primary encounter diagnosis) Dvt (deep venous thrombosis), unspecified laterality Htn (hypertension) Neurogenic bladder Dm w/o complication type ii Hyponatremia Dyslipidemia Neuropathic pain and discharged on July 28, 2014 to home. Contact Spoke with patient. Name of fox farmer and contact information N/A. Verbal permission obtained to talk to fox farmer? not applicable Patient Concerns and Condition: Patient expressed the following concerns: None Patient rates their pain a 8. Patient feels their pain control is adequate? Yes. Activities of Daily Living: Patient having any difficulty with bathing/dressing? No , feeding/appetite?, No toileting/constipation? No, ambulating? No, uses the following assistive devices: NA. Medications Reviewed discharge medications that are new, changed or stopped with patient. Discrepancies noted: none. Patient teaching: Reviewed Danger signs to watch for and report, and when to call Careline and number to call: [phone] or . Confirmed using teach back method that patient and/or caregiver can state their medications and doses to take, discharge instructions, appointments they have scheduled, who to call if their condition worsens. Yes Follow up Plan: Appointments already scheduled: 08/11/2014 2:20 PM Nurse, Neurosurgery [facility] Specialty Center 401 NeuroSurgery [phone] 09/02/2014 10:00 AM Shin Salvador MD [facility] [phone] 09/07/2014 11:45 AM Mr 1a [facility] MRI [phone] 09/07/2014 1:00 PM Garry Neff MD Specialty Center 401 NeuroSurgery [phone] 09/17/2014 2:40 PM Cooper Shelley MD Specialty Center 401 NeuroSurgery [phone] 09/23/2014 10:00 AM Zelalem Cohen MD Specialty [place] 401 Interventional Pain Management [phone] Appointments patient still needs to schedule: N/A Referrals Recommended on Discharge Summary: None Referral placed during this call: None needed documented in this encounter Plan of Treatment Not on filedocumented as of this encounter Visit Diagnoses Not on filedocumented in this encounter
--- OUTSIDE RECORDS SUMMARY | 2022-06-20 02:25 | XMS_ITS | Encounter Summary ---
:1945 Author Organization [facility] Address [address], [place] [address] Care Team Providers Name Role Phone Loretta Mcmahan MD Primary Care Provider Unavailable Reason for Referral Procedure/Equipment (Routine) - Incomplete Specialty Diagnoses / Procedures Referred By Contact Refer red To Contact Procedures Shin Salvador MD CT HEAD (ADULT) WITH OUT [address] [place] [address] Referral ID Status Reason Start Date Expiration Date Visits V isits Requested Authorized [id number] Incomplete 08/23/2014 1 1 Reason for Visit Reason Onset Date Comments Medication Questions 08/23/2014 Encounter Details Date Type Department Care Team Description 08/23/2014 Telephone [facility] Cancer Shin Salvador dication Questions Center at Namrata Ulloa MD [facility] [address] [facility] [address] [place] [id number] Social History Tobacco Use Types Packs/Day Years Used Date Smoking Tobacco: Never Smokeless Tobacco: Never Alcohol Use Standard Drinks/Week Comments No 0 (1 standard drink = 0.6 oz pure alcoho l) Sex Assigned at Date Recorded Male 08/06/2021 5:59 PM CDT documented as of this encounter Nursing Notes Jennyfer Simpson RN - 08/23/2014 3:05 PM CDT 08/26: CT Head (Non-Contrast). RTC on 08/30 for labs (cbc/diff, chemo profile, and INR) + appointment with Dr. Salvador. Jennyfer Simpson RN 08/23/2014, 3:05 PM Jennyfer Simpson RN - 08/23/2014 11:04 AM CDT Request given to our scheduling department. KEEP THIS MESSAGE UNTIL CT/APPT WITH DR. 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; admitted to [facility] Jul 2014 with SDH at time that INR =1.1; No evidence of lupus anticogulant Pt admitted to hospital at [facility] over weekend with new RLE DVT Pt placed on lovenox 40mg and back on warfarin--case discussed with NSG and Dr Hughes Now back on warfarin Plan: Cancel rhizotomy Cancel/postpone angiogram Warfarin goal INR 2-2.[address] Salvador 1 week (08/30/14 11am) with cbc chemo profile INR and NC CT of head SALVADOR POOL: please place on my schedule--pt aware Shin Salvador MD Jennyfer Simpson RN - 08/23/2014 9:35 AM CDT I returned call to Heather () to inform that Dr. Salvador will not be in clinic until around 12pm today. Pre-Op appointment is scheduled at 1pm today. Heather wants to directly speak with Dr. Salvador prior to her 's pre-op appointment today. I reviewed will leave message for Dr. Salvador with above information. Best to contact her on cell number provided at original telephone encounter. Jennyfer Simpson RN 08/23/2014, 9:37 AM Becky Hughes - 08/23/2014 9:17 AM CDT Patient's called with questions about the patient's Coumadin use. He had new blood clots on Saturday and was hospitalized at [facility] over the weekend, released on Saturday. The patient has a pre op appointment today for 2 procedures coming up within the week. The patient's would like a call back this morning before they go for the pre-op appointments. Becky Garcia Linkert 08/23/2014, 9:20 AM documented in this encounter Plan of Treatment Not on filedocumented as of this encounter Results CT HEAD (ADULT) WITH OUT CONTRAST (08/26/2014 12:22 PM CDT) Anatomical Region Laterality Modality Head Computed Tomography Specimen (Source) Anatomical Collection Method Collection Time Re ceived Time Location / / Volume Laterality 08/26/2014 12:22 PM CDT Narrative 08/26/2014 3:36 PM CDT [facility] II CT HEAD WO CONT [...] note might be different from the original. [facility] II CT HEAD WO CONT [...] Visit Diagnoses Diagnosis DVT (deep venous thrombosis), right - Pr imary documented in this encounter Care Teams Orthotist/Prosthetist Relationship Specialty Start Date End Date Loretta Mcmahan MD PCP - General Family Practice 10/21/1402/10 documented as of this encounter
--- OUTSIDE RECORDS SUMMARY | 2022-06-20 02:25 | XMS_ITS | Encounter Summary ---
:1945 Author Organization [facility] Address [address] [place] [address] Care Team Providers Name Role Phone No Primary/Referring, Phy Primary Care Provider Unavailable Encounter Details Date Type Department Care Team Description 08/17/2014 Therapy [facility] Physical Trudi Raymundo, PT Therapy [address] [place] [address] [place] [address] [phone] Social History Tobacco Use Types Packs/Day Years [...] on filedocumented in this encounter Care Teams Broomcorn Scraper Relationship Specialty Start Date End Date No Primary/ReferringOttoniel PCP - General 09/07/14 1 12/20/13 documented as of this encounter
--- OUTSIDE RECORDS SUMMARY | 2022-06-20 02:25 | XMS_ITS | Encounter Summary ---
:1945 Author Organization [employer] Address [address] [place] [address] Care Team Providers Name Role Phone Unavailable Primary Care Provider Unavailable Reason for Visit Reason Onset Date Comments QUESTIONS, GENERAL 08/04/2014 Encounter Details Date Type Department Care Team Description 08/04/2014 Telephone Specialty Center 401 Yordy Shelley MD QUESTIONS, GENERAL NeuroSurgery 39[address] [facility] [address] [place] [address] [phone] (Wo rk) Social History Tobacco Use Types Packs/Day Years Used Date Smoking Tobacco: Never Smokeless Tobacco: Never Alcohol Use Standard Drinks/Week Comments No 0 (1 standard drink = 0.6 oz pure alcoho l) Sex Assigned at Date Recorded Male 08/06/2021 5:59 PM CDT documented as of this encounter Nursing Notes Sylvia Washington RN - 08/04/2014 2:10 PM CDT Called pts Heather landaverde, informed her no contraindication for medial branch block, ok to proceed as planned. She is grateful for the update. She also states that pt saw his PCP, Loretta Mcmahan, today and she did labs and states she can do the incision check and staple removal for them on 08/11/14 next week. Since they live in [place], [place], they would like to cancel the nurse visit with us and just do it with PCP. Informed her that is fine, we will cancel nurse visit. Reminded her of appt with Dr. Shelley in September with CT prior, she has the date/time already. No further questions or concerns. Will have Vlad cancel incision check. Sylvia Washington RN 08/04/2014, 2:14 PM Molly Diaz PA-C - 08/04/2014 2:03 PM CDT Please let know there is no contraindication for medial branch block, ok to proceed as planned. Molly Diaz PA-C Jase Antonio - 08/04/2014 1:23 PM CDT Pt's stated Dr Neff referred pt for a medial branch block scheduled for next week, however she would like to make sure Dr Shelley is ok with pt having injection. She request a call back from Molly or Sylvia to discuss. documented in this encounter Plan of Treatment Not on filedocumented as of this encounter Visit Diagnoses Not on filedocumented in this encounter
--- OUTSIDE RECORDS SUMMARY | 2022-06-20 02:26 | XMS_ITS | Encounter Summary ---
:1945 Author Organization [facility] Address [address], [place] [address] Care Team Providers Name Role Phone Franklin Squires MD Primary Care Provider Encounter Details Date Type Department Care Team Description 07/28/2014 Outside Hospital External to External, [facility] ER No address VISIT/[place] [address] Social History Tobacco Use Types Packs/Day Years [...] on filedocumented in this encounter Care Teams Patient Sitter Relationship Specialty Start Date End Date Franklin Squires MD PCP - General Family Practice 03/08/[address] [place] [address] [place] [address] documented as of this encounter
--- OUTSIDE RECORDS SUMMARY | 2022-06-20 02:26 | XMS_ITS | Encounter Summary ---
:1945 Author [facility] Address [address] [place] [address] Care Team Providers Name Role Phone Unavailable Primary Care Provider Unavailable Reason for Visit Auth/Cert - Closed Specialty Diagnoses / Procedures Referred By Contact Refer red To Contact Diagnoses Subdural hemorrhage following injury, without mention of open intracranial wound, unspecified state of consciousness . Referral ID Status Reason Start Date Expiration Date Visits Requ ested Visits Authorized [id number] Closed 1 1 Encounter Details Date Type Department Care Team Description 07/30/[address] Cooper Shelley MD [address] [place] [address] [place] [address] [phone] (Wo rk) Social History Tobacco Use Types [...] nts CT HEAD WO IV CONT STAT 07/30/2014 2:41 PM Res ults for this CDT procedure are i n the results section. documented in this encounter Results CT HEAD WITHOUT CONTRAST (07/30/2014 2:41 PM CDT) Anatomical Region Laterality Modality Head Computed Tomography Specimen (Source) Anatomical Collection Method Collection Time Re ceived Time Location / / Volume Laterality 07/30/2014 2:41 PM CDT Narrative 07/30/2014 3:[address] HEAD WO CONT 07/30/2014 2:41 PM INDICATION: New neurologic changes (janis ated tongue, pronator drift) status post subdural evacuation. TECHNIQUE: Serial axial images were obta ined through the brain without contrast. CONTRAST: None. SEDATION: None. COMPARISON: CTA [place] [facility] [place] perform ed at 6:15 AM earlier same day. FINDINGS: Postoperative changes relating to prior right parietal craniotomy and keegan hole are again noted. A shallo w hyper dense subdural hematoma is again seen along the right frontal parie paty inner table, appears stable in size in the interval measuring up to 7 m m in thickness in the coronal plane (image 26 of series 6). Scattered mixed foci of gas are again seen. Right posterior parietal subdural drain has be en removed in the interval. Ta-white matter differentiation is pre served. Subtle right to left midline shift, stable. Visualized nasal sinuses, middle ear cav ities, mastoid air cells are clear. Orbits unremarkable. IMPRESSION: 1. Shallow hyperdense subdural collectio n along the right frontal parietal inner table appears stable in size in th e interval. Right sided subdural drain has been removed. 2. No finding to suggest new infarct, he morrhage, or mass. Procedure Note Kai Fajardo II, MD - 07/30/2014Formatti ng of this note might be different from the original. CT HEAD WO CONT 07/30/2014 2:41 PM INDICATION: New neurologic changes (janis ated tongue, pronator drift) status post subdural evacuation. TECHNIQUE: Serial axial images were obta ined through the brain without contrast. CONTRAST: None. SEDATION: None. COMPARISON: CTA [place] [facility] [place] perform ed at 6:15 AM earlier same day. FINDINGS: Postoperative changes relating to prior right parietal craniotomy and keegan hole are again noted. A shallo w hyper dense subdural hematoma is again seen along the right frontal parie paty inner table, appears stable in size in the interval measuring up to 7 m m in thickness in the coronal plane (image 26 of series 6). Scattered mixed foci of gas are again seen. Right posterior parietal subdural drain has be en removed in the interval. Ta-white matter differentiation is pre served. Subtle right to left midline shift, stable. Visualized nasal sinuses, middle ear cav ities, mastoid air cells are clear. Orbits unremarkable. IMPRESSION: 1. Shallow hyperdense subdural collectio n along the right frontal parietal inner table appears stable in size in th e interval. Right sided subdural drain has been removed. 2. No finding to suggest new infarct, he morrhage, or mass. Molly Diaz PA-C RAD CT documented in this encounter Visit Diagnoses Not on filedocumented in this encounter
--- OUTSIDE RECORDS SUMMARY | 2022-06-20 02:26 | XMS_ITS | Encounter Summary ---
:1945 Author Organization [facility] Address [address] [place] [address] Care Team Providers Name Role Phone Unavailable Primary Care Provider Unavailable Reason for Visit Auth/Cert - Closed Specialty Diagnoses / Procedures Referred By Contact Refer red To Contact Diagnoses Subdural hemorrhage following injury, without mention of open intracranial wound, unspecified state of consciousness . Referral ID Status Reason Start Date Expiration Date Visits Requ ested Visits Authorized [id number] Closed 1 1 Encounter Details Date Type Department Care Team Description 07/30/[address] Cooper Shelley MD [address] [place] [address] [place] [address] [phone] (Wo rk) Social History Tobacco Use Types [...] Priority Date/Time Associated Diagnosis Comme nts CT ANGIO HEAD W/WO Routine 07/30/2014 6:27 AM Res ults for this IV CONT CDT procedure are i n the results section. documented in this encounter Visit Diagnoses Not on filedocumented in this encounter Administered Medications Inactive Administered Medications - up to 3 most recent administrations Medication Order MAR Action Action Date Dose Rate Site iohexol (aka OMNIPAQUE) 350 MG/ML Given 07/30/2014 6:25 AM CDT 8 0 mL injection 80 mL 80 mL, Intravenous, ONCE, On Sat07/30/14 at 0631, For 1 dose documented in this encounter
--- OUTSIDE RECORDS SUMMARY | 2022-06-20 02:26 | XMS_ITS | Encounter Summary ---
:1945 Author Organization [facility] [employer] Address [address] [address] Care Team Providers Name Role Phone Unavailable Primary Care Provider Unavailable Reason for Visit Auth/Cert - Closed Specialty Diagnoses / Procedures Referred By Contact Refer red To Contact Diagnoses Subdural hemorrhage following injury, without mention of open intracranial wound, unspecified state of consciousness . Referral ID Status Reason Start Date Expiration Date Visits Requ ested Visits Authorized [id number] Closed 1 1 Encounter Details Date Type Department Care Team Description 07/28/2014 Anesthesia Event RH Operating Room Latrice Mcclain, [address] [facility] [place] [address] [address] [facility] [phone] [place], [place] [address] (Wo rk) Anesthesia Record Procedure Summary Procedure Name Responsible Anesthesia Start Anesthesia Stop Time Anesthesiologist Time CRANIOTOMY (Right) Latrice Mcclain MD 07/28/1407/12 Events Date Time Event Comment 07/28/2014 1850 1916 An Start 1915 An Start Data 1921 MD/DO Present 1921 An Induction 1924 An Intubation 2029 MD/DO Present 2057 An Extubation Purposeful movem ent with spontaneous respirations and adequate air exchange. Suctioned and ETT removed. Transfe rred with oxygen to recovery. 2099 an stop data 2107 Care Handoff Note Airway patent . Vital signs stable. Condition unchanged. Repor t given according to policy and procedure. 2108 An Stop Care transferred . Name Total midazolam 2 mg/2 mL injection (aka VERSED) 2 mg FENTanyl injection (aka SUBLIMAZE) 3 mL lidocaine 2% PF injection aka (XYLOCAINE) 80 mg propofol 10 mg/mL for procedural sedation (aka diPRIva n) 200 mg vecuronium bromide injection (aka NORCURON) 9 mg ondansetron injection (aka ZOFRAN) 4 mg neostigmine 1 mg/mL injection (aka PROSTIGMIN) 5 mg glycopyrrolate injection (aka ROBINUL) 0.6 mg ceFAZolin (aka ANCEF) injection 2 g 2 g phenylephrine-NaCl 0.9% 100 mcg/mL syringe (aka TRISTAN-SY NEPHRINE) 400 mcg phenylephrine-NaCl 0.9% 100 mcg/mL IV infusion 765 mcg dexamethasone (aka DECADRON) injection 10 mg 10 mg nicardipine-NaCl 0.9% 20 mg premade infusion 1.13 mg lactated ringer infusion 1,000 mL NaCl 0.9% infusion 200 mL Agents Name O2 Air Isoflurane () Blood No blood administrations on file. Lines, Drains, and Airways Type Details Placement Removal Peripheral IV Placement Date: 07/28/14 1600 by 07/29/14 0504 b y 07/28/14; Placement Malika Maradiaga Motzer, Molly B, RN Time: 1600; RN Pre-existing: Yes; Orientation: Left; Location: Antecubital; Removal Date: 07/29/14; Removal Time: 0504; Removal Reason: Per Protocol; Catheter Tip: Intact Peripheral IV Placement Date: 07/28/14 1600 by 07/29/14 0505 b y 07/28/14; Placement Malika Maradiaga Motzer, Molly B, RN Time: 1600; RN Pre-existing: Yes; Orientation: Right; Location: Antecubital; Removal Date: 07/29/14; Removal Time: 0505; Removal Reason: Per Protocol; Catheter Tip: Intact Ileostomy LUQ 07/28/14 185 by 03/22/16 1253 b y Lda, Discontinue Indwelling Urethral Yes; De La Cruz 07/28/141851 by 08/02/14 14 00 by Geeta Paul RN ETT Placement Date: 07/28/141924 by 07/28/142057 b y 07/28/14; Placement Sheron Hughes, Jairo Hughes, MAMADOU, Time: 1924; Placed METAL HANDLER, SECURITIES SUPERVISOR SECURITIES SUPERVISOR By: SECURITIES SUPERVISOR; Induction Type: Pre-O2, IV; Masking: Easy; ETT Type: ETT; Orientation: Right; Depth Secured (cm): 22 cm; Cuffed: Cuffed; Cuff Volume: 6 mL; Intubation Method: Glidescope; Cormack_Lehane Glottic Grade: Grade 1; Glottic View: Cords Open, Cords Clear; Blade: Glidescope; Insertion attempts: 1; Difficulty: Atraumatic; Adjunct Equipment: Stylet; Placement Verification: BBSE, Positive EtCO2; Teeth and Lips Unchanged: Unchanged; Removal Date: 07/28/14; Removal Time: 2057 Peripheral IV Placement Date: 07/28/141929 by 07/30/14 0810 b y 07/28/14; Placement Sheron Hughes Klingbeil, Amber J RN Time: 1929; BRIANNA CEDILLO Pre-existing: Yes; Inserted by?: SECURITIES SUPERVISOR; Size (Gauge): 18 G; Orientation: Left; Location: Wrist; Site Prep: Chlorhexidine; Local Anesthetic: None; Insertion attempts: 1; Blood draw with insertion?: yes; Patient Tolerance: Tolerated well; Met Standard Sterile Barrier Technique: Met Standard Sterile Barrier Technique; Removal Date: 07/30/14; Removal Time: 809 Drain 07/28/14; 2030; 1; 07/28/142029 by 07/30/14 160 0 by Right; (RIGHT SIDE OF Priti Cardona C, Shanti clark, Priti Kathleen, HEAD); Harshad; 10 Fr.; RN RN Other (Comment) (charted per note of 07/30 at 1410.) Incision/Surgical Site 07/28/14; 2109; Head; 07/28/142109 by 1836 by Lda, Right, Posterior; Archana Mares, VALERIE Discontinue 08/05/14; 1836 documented in this encounter Social History Tobacco Use Types Packs/Day Years Used Date Smoking Tobacco: Never Smokeless Tobacco: Never Alcohol Use Standard Drinks/Week Comments No 0 (1 standard drink = 0.6 oz pure alcoho l) Sex Assigned at Date Recorded Male 08/06/2021 5:59 PM CDT documented as of this encounter Miscellaneous Notes Anesthesia Postprocedure Evaluation - Latrice Mcclain MD - 07/28/2014 9:40 PM CDT [facility] Anesthesia Post-op Note Patient: Jeff Cullen Post-Op Diagnosis: Subdural hematoma Procedure Performed: Procedure(s): CRANIOTOMY Anesthesia type: general Patient location: PACU Post-op pain control: Satisfactory PONV: None Cardiovascular Function: Satisfactory Post-op Hydration: Satisfactory Respiratory Function: Satisfactory Airway Patency: Patent Post-op vital signs: BP 122/72 Pulse 90 Temp(Src) 97.5 ??F (36.4 ??C) (Oral) Resp 20 Ht 6' (1.829 m) Wt 113.1 kg (249 lb 5.4 oz) BMI 33.81 kg/m2 SpO2 96% Pain Score: Pain Rating: Rest: 7 Pain Rating: Activity: 7 Level of consciousness: Awake Patient participates in evaluation: Mental status recovered: Yes Complications: No apparent anesthetic complications Post-op assessment: Patient tolerated procedure well Latrice Triana MD 07/28/2014 9:40 PM Anesthesia Preprocedure Evaluation - Latrice Mcclain MD - 07/28/2014 6:45 PM CDT [facility] Anesthesia Pre-op Evaluation Procedure: Procedure(s): CRANIOTOMY HPI: 69 yr old male with Subdural hematoma NPO Status: Last Fluid Intake Time: 1115 Last Fluid Intake Date: 07/28/14 Last Food Intake Date: 07/28/14 Last Food Intake Time: 944 Allergies Allergen Reactions ??? Oxycodone Other, see comments Delirium ??? Zaroxolyn [Sulfa Drugs] Rash Past Medical History Diagnosis Date ??? 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 However resection was incomplete due [...] for spasticity of lower extremities. ??? 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 Leg fracture, left nontraumatic ??? Hypercholesteremia ??? Chronic constipation ??? Depression Patient Active Problem List Diagnosis ??? Ependymoma ??? Fever ??? Probable Bacterial Meningitis ??? DVT (Deep Venous Thrombosis) ??? Neurogenic Bladder ??? HTN (Hypertension) ??? CAREPLAN: BACLOFEN ??? Osteoporosis ??? Paraplegia ??? Hyperparathyroidism ??? Vitamin D deficiency ??? Gait abnormality ??? Back pain ROS: GERD: No Smoking:No ETOH: No Recent URI: No Past Surgical History Procedure Laterality Date ??? Appendectomy ??? Vasectomy* ??? Turp incl contrl postop bleed cmpl ??? 16043 total knee arthroplasty right ??? Ivc filter placement 1999 Personal/Family History of Previous Anesthetic Complications: No No Facility-Administered Medications for the 07/28/14 encounter (Hospital Encounter). No outpatient prescriptions have been marked as taking for the 07/28/14 encounter (Hospital Encounter). Current Facility-Administered Medications Medication Dose Route Frequency ??? atorvastatin (aka LIPITOR) tablet 40 mg 40 mg Oral 1999 ??? bacitracin injection Intra-Op ??? bacitracin ointment Intra-Op ??? bisacodyl (aka DULCOLAX) suppository 10 mg 10 mg Rectal DAILY PRN ??? DULoxetine (aka CYMBALTA) delayed release capsule 80 mg 80 mg Oral Daily ??? gabapentin (aka NEURONTIN) capsule 400 mg 400 mg Oral TID ??? lactated ringers infusion IV Continuous ??? lidocaine-epinephrine 1-1:053661 % injection Intra-Op ??? LORazepam (aka ATIVAN) tablet 1 mg 1 mg Oral TID ??? magnesium hydroxide (aka MILK OF MAGNESIA) oral liquid 30 mL 30 mL Oral DAILY PRN ??? NaCl 0.9 % infusion 1,000 mL 1,000 mL IV Continuous ??? polyethylene glycol (aka MIRALAX) oral powder 1 Packet 17 g Oral Daily ??? sennosides-docusate sodium (aka SENNA-S,SENNA PLUS) 8.6-50 MG tablet 1 Tab 1 Tab Oral At Bedtime ??? SURGICEL 1/2 X 2 Intra-Op Labs: Lab Results Component Value Date/Time SODIUM 134* 07/28/2014 5:58 PM K 4.6 07/28/2014 5:58 PM CHLORIDE 96 07/28/2014 5:58 PM CO2 27 07/28/2014 5:58 PM BUN 12 07/28/2014 5:58 PM CREATININE 0.71 07/28/2014 5:58 PM GLUCOSE 135 07/28/2014 5:58 PM Lab Results Component Value Date/Time WBC 7.0 07/28/2014 5:58 PM HGB 13.0* 07/28/2014 5:58 PM HCT 38.6* 07/28/2014 5:58 PM PLTS 173 07/28/2014 5:58 PM INR (no units) Date Value 07/28/2014 1.2* 05/22/2010 3.0 No results found for this basename: hcgquant Urine : Result: (not recorded) Blood Bank: ABO/RH(D) (no units) Date Value 03/13/2011 A NEGATIVE ANTIBODY SCREEN (no units) Date Value 03/13/2011 NEGATIVE EKG: Date of last EK04/11/10 ECG 12-LEAD ROUTINE Result Value Range VENTRICULAR RATE 114 ATRIAL RATE 114 P-R INTERVAL 176 QRS DURATION 92 QT 326 QTC 449 P AXIS 60 R AXIS -42 T AXIS 26 URL LINK Physical Exam: BP 182/96 Pulse 81 Temp(Src) 97.5 ??F (36.4 ??C) (Oral) Resp 15 Ht 6' (1.829 m) Wt 113.1 kg (249 lb 5.4 oz) BMI 33.81 kg/m2 SpO2 99% Mental Status: Awake, Alert, Oriented Airway: MPC2 Dentition: normal Heart:RRR Lungs:BS CTA Assessment/Plan: Updated History and Physical: H&P Reviewed and Patient examined, no change observed ASA Score: 3 Anesthesia Type: General, RSI and ETT Standard ASA Monitors Induction Agent: Propofol Maintenance: Balanced PONV Prophylaxis: Other Equipment Needed: [place] Scope 3 and 2nd IV Post-operative Care: Routine Analgesia Anesthetic Plan, Risks, Benefits and alternatives discussed with: Patient and Paste Plant Supervisor Possibility of blood product administration discussed IV access Antibiotics per surgery Latrice Triana MD 07/28/2014 6:45 PM documented in this encounter Plan of Treatment Not on filedocumented as of this encounter Visit Diagnoses Not on filedocumented in this encounter Administered Medications Inactive Administered Medications - up to 3 most recent administrations Medication Order MAR Action Action Date Dose Rate Site ceFAZolin (aka ANCEF) injection 2 g Given 07/28/2014 7:30 PM CDT 2 g 2 g, Intravenous, PRE-OP, On Sat07/28/14 at 1859, For 1 dose dexamethasone (aka DECADRON) injection 1 0 mg Given 07/28/2014 8:00 PM CDT 10 mg 10 mg, Intravenous, ONCE (NON-SCHEDULED), Starting on Sat07/28/14 at 1850, Until Sat07/28/14 at 2000, For 1 dose, Pre-op fentaNYL (aka SUBLIMAZE) injection Given 07/28/2014 8:11 PM CDT 1 mL Starting on Sat07/28/14 at 1922, Until Sat07/28/14 at 2108 Given 07/28/2014 7:45 PM CDT 1 mL Given 07/28/2014 7:22 PM CDT 1 mL glycopyrrolate (aka ROBINUL) injection Given 07/28/2014 8:40 PM CDT 0.6 mg Starting on Sat07/28/14 at 2040, Until Sat07/28/14 at 2108 lactated ringers infusion Started 07/28/2014 8:59 PM CDT Starting on Sat07/28/14 at 1912 Started 07/28/2014 7:12 PM CDT lidocaine PF (aka XYLOCAINE) 2 % injecti on Given 07/28/2014 7:22 PM CDT 80 mg Starting on Sat07/28/14 at 1922, Until Sat07/28/14 at 2108 midazolam (aka VERSED) injection Given 07/28/2014 7:12 PM CDT 2 mg Starting on Sat07/28/14 at 1912, Until Sat07/28/14 at 2108 NaCl 0.9 % infusion Started 07/28/2014 8:00 PM CDT 75 mL/hr Starting on Sat07/28/14 at 2000 neostigmine (aka PROSTIGMINE) injection Given 07/28/2014 8:40 PM CDT 5 mg Starting on Sat07/28/14 at 2040 niCARdipine-NaCl 0.9% 20 Rate/Dose Change 07/28/2014 8:58 PM 5 mg/hr 50 mL/hr MG/200ML infusion CDT Starting on Sat07/28/14 at 2053, Until Sat07/28/14 at 2108 Started 07/28/2014 8:53 PM CDT 2.5 mg/hr 25 mL/hr ondansetron (aka ZOFRAN) injection Given 07/28/2014 8:20 PM CDT 4 mg Starting on Sat07/28/14 at 2020, Until Sat07/28/14 at 2108 phenylephrine-NaCl 0.9% 100 Rate/Dose Change 07/28/2014 8:35 PM 15 mcg/min 9 mL/hr mcg/mL IV infusion CDT Starting on Sat07/28/14 at 2002 Restarted 07/28/2014 8:26 PM CDT 25 mcg/min 15 mL/hr Started 07/28/2014 8:02 PM CDT 35 mcg/min 21 mL/hr phenylephrine-NaCl 0.9% 100 mcg/mL syringe Given 07/28/2014 8:03 PM CDT 200 mcg (aka TRISTAN-SYNEPHRINE) Starting on Sat07/28/14 at 1940 Given 07/28/2014 7:40 PM CDT 200 mcg propofol (aka diPRIvan) injection Given 07/28/2014 7:22 PM CDT 200 mg Starting on Sat07/28/14 at 1922 vecuronium (aka NORCURON) injection Given 07/28/2014 7:22 PM CDT 9 mg Starting on Sat07/28/14 at 192, Until Sat07/28/14 at 2108 documented in this encounter
--- OUTSIDE RECORDS SUMMARY | 2022-06-20 02:26 | XMS_ITS | Encounter Summary ---
:1945 [facility] Address [address] [place] [address] Care Team Providers Name Role Phone Unavailable Primary Care Provider Unavailable Reason for Visit Auth/Cert - Closed Specialty Diagnoses / Procedures Referred By Contact Refer red To Contact Diagnoses Subdural hemorrhage following injury, without mention of open intracranial wound, unspecified state of consciousness . Referral ID Status Reason Start Date Expiration Date Visits Requ ested Visits Authorized [id number] Closed 1 1 Encounter Details Date Type Department Care Team Description 07/29/[address] Cooper Shelley MD [address] [place] [address] [place] [address] [phone] (Wo rk) Social History Tobacco Use Types [...] nts CT HEAD WO IV CONT Routine 07/29/2014 4:30 AM Res ults for this CDT procedure are i n the results section. documented in this encounter Results CT HEAD WITHOUT CONTRAST (07/29/2014 4:30 AM CDT) Anatomical Region Laterality Modality Head Computed Tomography Specimen (Source) Anatomical Collection Method Collection Time Re ceived Time Location / / Volume Laterality 07/29/2014 4:30 AM CDT Narrative 07/29/2014 5:[address] WITHOUT IV CONTRAST 07/29/2014 4:30 AM INDICATION: Post craniotomy. TECHNIQUE: Head CT without IV contrast. COMPARISON: None. FINDINGS: High right parietal craniotomy with keegan hole placement. There is a short segment subdural drain in place . There is thin mixed density subdural hemorrhage and gas overlying th e right frontal region primarily, reaching up to 3.5 mm in radial diameter no parenchymal hemorrhage is identified. Ta-white differentiation i s maintained. Basal cisterns are patent. Orbits negative. Paranasal sinus es and mastoid air cells are clear. CONCLUSION: 1. ??Thin subdural collection containing gas and blood products overlying the right frontal lobe as described. No significant mass effect. 2. ??High right parietal keegan hole with a subdural drain which extends approximately 1 cm intracranially. Procedure Note May, Cristhian Miranda MD - 07/29/2014Formatti ng of this note might be different from the original. HEAD CT WITHOUT IV CONTRAST 07/29/2014 4:30 AM INDICATION: Post craniotomy. TECHNIQUE: Head CT without IV contrast. COMPARISON: None. FINDINGS: High right parietal craniotomy with keegan hole placement. There is a short segment subdural drain in place . There is thin mixed density subdural hemorrhage and gas overlying th e right frontal region primarily, reaching up to 3.5 mm in radial diameter no parenchymal hemorrhage is identified. Ta-white differentiation i s maintained. Basal cisterns are patent. Orbits negative. Paranasal sinus es and mastoid air cells are clear. CONCLUSION: 1. Thin subdural collection containing g as and blood products overlying the right frontal lobe as described. No significant mass effect. 2. High right parietal keegan hole with a subdural drain which extends approximately 1 cm intracranially. Molly Diaz PA-C RAD CT documented in this encounter Visit Diagnoses Not on filedocumented in this encounter
--- OUTSIDE RECORDS SUMMARY | 2022-06-20 02:26 | XMS_ITS | Encounter Summary ---
:1945 Author Organization [facility] Address [address], [place] [address] Care Team Providers Name Role Phone Franklin Squires MD Primary Care Provider Encounter Details Date Type Department Care Team Description 07/28/2014 Consent for [facility] INFORM ED [...] on filedocumented in this encounter Care Teams Magneto Electrician Relationship Specialty Start Date End Date Franklin Squires MD PCP - General Family Practice 03/08/[address] [place], [place] [address]LES Wong [phone] documented as of this encounter
--- OUTSIDE RECORDS SUMMARY | 2022-06-20 02:26 | XMS_ITS | Encounter Summary ---
:1945 Author Organization [facility] Address [address] [place] [address] Care Team Providers Name Role Phone Unavailable Primary Care Provider Unavailable Encounter Details Date Type Department Care Team Description 07/28/2014 Orders Only External to External, [place] [address] Social History Tobacco Use Types Packs/Day Years [...] Date/Time Associated Diagnosis Comme nts SC[facility]ED [facility] 07/28/2014 12:00 AM Results for this CDT procedure are i n the results section . documented in this encounter Results SC[facility]ED [facility] (07/28/2014 12:00 AM CDT) Specimen (Source) Anatomical Location Collection Method / Collectio n Time Received Time / Laterality Volume 07/28/2014 Narrative This result has an attachment that is no t available. LAB_1 documented in this encounter Visit Diagnoses Not on filedocumented in this encounter
--- OUTSIDE RECORDS SUMMARY | 2022-06-20 02:26 | XMS_ITS | Encounter Summary ---
:1945 Author Organization [facility] Address [address] [place] [address] Care Team Providers Name Role Phone Unavailable Primary Care Provider Unavailable Encounter Details Date Type Department Care Team Description 07/28/2014 Orders Only External to External, [place] [address] Social History Tobacco Use Types Packs/Day Years [...] Priority Date/Time Associated Diagnosis Comme nts CT SCAN--SCANNING 07/28/2014 12:00 AM Res ults for this CDT procedure are i n the results section. documented in this encounter Results CT SCAN--SCANNING (07/28/2014 12:00 AM CDT) Anatomical Region Laterality Modality Other Specimen (Source) Anatomical Location Collection Method / Collectio n Time Received Time / Laterality Volume 07/28/2014 Narrative This result has an attachment that is no t available. DUMMY/OTHER/AR documented in this encounter Visit Diagnoses Not on filedocumented in this encounter
--- OUTSIDE RECORDS SUMMARY | 2022-06-20 02:26 | XMS_ITS | Encounter Summary ---
:1945 [facility] Address [address] [place] [address] Care Team Providers Name Role Phone Unavailable Primary Care Provider Unavailable Reason for Visit Auth/Cert - Closed Specialty Diagnoses / Procedures Referred By Contact Refer red To Contact Diagnoses Subdural hemorrhage following injury, without mention of open intracranial wound, unspecified state of consciousness . Referral ID Status Reason Start Date Expiration Date Visits Requ ested Visits Authorized [id number] Closed 1 1 Encounter Details Date Type Department Care Team Description 07/31/[address] Cooper Shelley MD [address] [place] [address] [place] [address] [phone] (Wo rk) Social History Tobacco Use Types [...] nts CT HEAD WO IV CONT Routine 07/31/2014 8:24 AM Res ults for this CDT procedure are i n the results section. documented in this encounter Results CT HEAD WITHOUT CONTRAST (07/31/2014 8:24 AM CDT) Anatomical Region Laterality Modality Head Computed Tomography Specimen (Source) Anatomical Collection Method Collection Time Re ceived Time Location / / Volume Laterality 07/31/2014 8:24 AM CDT Narrative 07/31/2014 9:[address] WITHOUT IV CONTRAST 07/31/2014, 8:24 AM INDICATION:Status post craniotomy for good bdural hematoma, status post removal of drain. TECHNIQUE: Head CT without IV contrast. COMPARISON: Head CT 07/30/2014. FINDINGS: ? Previous right parietal keegan hole. The r ight subdural hematoma may have minimally diminished in the interval tho ugh is largely similar in size to the prior examination. No new hemorrhage . Scattered pneumocephalus and extra-axial gas has minimally decreased. No significant shift of the midline structures or mass effect. Skull base is grossly normal. Slightly hypoplastic left maxillary sinus. No dis placed calvarial fracture. CONCLUSION: 1. ??The shallow hyperdense subdural col lection may have minimally decreased in size since the prior examination tho ugh is largely unchanged. Slight decrease in pneumocephalus. No new hemor rhage, midline shift, or definite infarct by CT. Procedure Note Raudel Polo MD - 07/31/2014Formattin g of this note might be different from the original. HEAD CT WITHOUT IV CONTRAST 07/31/2014, 8:24 AM INDICATION:Status post craniotomy for good bdural hematoma, status post removal of drain. TECHNIQUE: Head CT without IV contrast. COMPARISON: Head CT 07/30/2014. FINDINGS: Previous right parietal keegan hole. The r ight subdural hematoma may have minimally diminished in the interval tho ugh is largely similar in size to the prior examination. No new hemorrhage . Scattered pneumocephalus and extra-axial gas has minimally decreased. No significant shift of the midline structures or mass effect. Skull base is grossly normal. Slightly hypoplastic left maxillary sinus. No dis placed calvarial fracture. CONCLUSION: 1. The shallow hyperdense subdural colle ction may have minimally decreased in size since the prior examination tho ugh is largely unchanged. Slight decrease in pneumocephalus. No new hemor rhage, midline shift, or definite infarct by CT. Molly Diaz PA-C RAD CT documented in this encounter Visit Diagnoses Not on filedocumented in this encounter
--- OUTSIDE RECORDS SUMMARY | 2022-06-20 02:26 | XMS_ITS | Encounter Summary ---
:1945 [facility] Address [address] [place] [address] Care Team Providers Name Role Phone Unavailable Primary Care Provider Unavailable Reason for Visit Auth/Cert - Closed Specialty Diagnoses / Procedures Referred By Contact Refer red To Contact Diagnoses Subdural hemorrhage following injury, without mention of open intracranial wound, unspecified state of consciousness . Referral ID Status Reason Start Date Expiration Date Visits Requ ested Visits Authorized [id number] Closed 1 1 Encounter Details Date Type Department Care Team Description 07/30/2014 [facility] [address] [place] [id number] [place] [address] [phone] (Wo rk) Social History Tobacco Use Types [...] Name Priority Date/Time Associated Diagnosis Comme nts US LOWER EXTREMITY Routine 07/30/2014 3:46 PM Res ults for this BILAT VENOUS CDT procedure are i n DOPPLER the results section. documented in this encounter Results US VENOUS DUPLEX LOWER EXTREMITY BILATERAL (07/30/2014 3:46 PM CDT) Anatomical Region Laterality Modality Vascular, Leg Ultrasound Specimen (Source) Anatomical Collection Method Collection Time Re ceived Time Location / / Volume Laterality 07/30/2014 3:46 PM CDT Narrative 07/30/2014 3:54 PM CDT US VENOUS DUPLEX LOW EXT FELIX 07/30/2014 3:46 PM INDICATION: Pain and swelling. Followup DVT. TECHNIQUE: Routine exam with compression , augmentation and duplex utilizing 2D grayscale imaging, Doppler interroga tion with color-flow and spectral waveform analysis. COMPARISON: None. FINDINGS: The common femoral, femoral, p opliteal, and segmentally visualized calf veins were evaluated. Ultrasound of these leg veins is positiv e for nonocclusive thrombus scattered throughout the right popliteal vein extending to the common femoral vein and within the left distal femoral vein extending to the distal common femoral vein. There are so me new areas of thrombus seen on today's study. No popliteal cysts. CONCLUSION: 1. ??Worsening of the DVT in the bilater al lower extremities. Large amount of nonocclusive thrombus in both legs as described above. NOTE: ABNORMAL REPORT THE DICTATION ABOVE DESCRIBES AN ABNORMA LITY FOR WHICH FOLLOWUP IS NEEDED. Procedure Note Brown Johnston MD - 07/30/2014Format ting of this note might be different from the original. US VENOUS DUPLEX LOW EXT FELIX 07/30/2014 3:46 PM INDICATION: Pain and swelling. Followup DVT. TECHNIQUE: Routine exam with compression , augmentation and duplex utilizing 2D grayscale imaging, Doppler interroga tion with color-flow and spectral waveform analysis. COMPARISON: None. FINDINGS: The common femoral, femoral, p opliteal, and segmentally visualized calf veins were evaluated. Ultrasound of these leg veins is positiv e for nonocclusive thrombus scattered throughout the right popliteal vein extending to the common femoral vein and within the left distal femoral vein extending to the distal common femoral vein. There are so me new areas of thrombus seen on today's study. No popliteal cysts. CONCLUSION: 1. Worsening of the DVT in the bilateral lower extremities. Large amount of nonocclusive thrombus in both legs as described above. NOTE: ABNORMAL REPORT THE DICTATION ABOVE DESCRIBES AN ABNORMA LITY FOR WHICH FOLLOWUP IS NEEDED. Molly SAMSON US documented in this encounter Visit Diagnoses Not on filedocumented in this encounter
--- OUTSIDE RECORDS SUMMARY | 2022-06-20 02:26 | XMS_ITS | Encounter Summary ---
:1945 [facility] Address [address], [place] [address] Care Team Providers Name Role Phone Unavailable Primary Care Provider Unavailable Reason for Referral Procedure/Equipment (Routine) - Incomplete Specialty Diagnoses / Procedures Referred By Contact Refer red To Contact Molly Diaz PA-C [address] [place] [address] Referral ID Status Reason Start Date Expiration Date Visits V isits Requested Authorized [id number] Incomplete 08/02/2014 1 1 Procedure/Equipment (Routine) - Incomplete Specialty Diagnoses / Procedures Referred By Contact Refer red To Contact Procedures Molly Diaz PA-C CT HEAD (ADULT) [address] [place], [place] [address] Referral ID Status Reason Start Date Expiration Date Visits V isits Requested Authorized [id number] Incomplete 08/02/2014 1 1 Consult/Transfer Care (Routine) - Closed Specialty Diagnoses / Procedures Referred By Contact Refer red To Contact Neurosurgery Molly Diaz PA-C [address] [place] [address] 274 Referral ID Status Reason Start Date Expiration Date Visits Requ ested Visits Authorized [id number] Closed 08/02/2014 11/01/2015 1 1 Scheduling Instructions Please call [phone], option 3 for a ny rescheduling needs. Consult/Transfer Care (Routine) - Incomplete Specialty Diagnoses / Procedures Referred By Contact Refer red To Contact Molly Diaz PA-C [address] [place], [place] [address] Referral ID Status Reason Start Date Expiration Date Visits V isits Requested Authorized [id number] Incomplete 08/02/2014 09/02/2014 1 1 Scheduling Instructions If scheduling assistance is needed, plea se inquire with the Hospital staff upon discharge. Procedure/Equipment (Routine) - Incomplete Specialty Diagnoses / Procedures Referred By Contact Refer red To Contact Procedures Molly Diaz PA-C CT HEAD WITHOUT CONTRAST [address] [place], [place] [address] Referral ID Status Reason Start Date Expiration Date Visits V isits Requested Authorized [id number] Incomplete 07/30/2014 1 1 Procedure/Equipment (Routine) - Incomplete Specialty Diagnoses / Procedures Referred By Contact Refer red To Contact Procedures Molly Diaz PA-C CT HEAD WITHOUT CONTRAST [address] [place], [place] [address] Referral ID Status Reason Start Date Expiration Date Visits V isits Requested Authorized [id number] Incomplete 07/30/2014 1 1 Procedure/Equipment (Routine) - Incomplete Specialty Diagnoses / Procedures Referred By Contact Refer red To Contact Procedures Molly Diaz PA-C US VENOUS DUPLEX LOWER [address] [facility] EXTREMITY BILATERAL [place], [place] [address] Referral ID Status Reason Start Date Expiration Date Visits V isits Requested Authorized [id number] Incomplete 07/30/2014 1 1 Procedure/Equipment (Routine) - Incomplete Specialty Diagnoses / Procedures Referred By Contact Refer red To Contact Procedures Cooper Shelley MD CT ANGIOGRAPHY HEAD [address] [place] [address] Referral ID Status Reason Start Date Expiration Date Visits V isits Requested Authorized [id number] Incomplete 07/29/2014 1 1 Procedure/Equipment (Routine) - Incomplete Specialty Diagnoses / Procedures Referred By Contact Refer red To Contact Procedures Molly Diaz PA-C CT HEAD WITHOUT CONTRAST [address] [place], [place] [address] Referral ID Status Reason Start Date Expiration Date Visits V isits Requested Authorized [id number] Incomplete 07/28/2014 1 1 Reason for Visit Auth/Cert - Closed Specialty Diagnoses / Procedures Referred By Contact Refer red To Contact Diagnoses Subdural hemorrhage following injury, without mention of open intracranial wound, unspecified state of consciousness . Referral ID Status Reason Start Date Expiration Date Visits Requ ested Visits Authorized [id number] Closed 1 1 Encounter Details Date Type Department Care Team Description 07/28/2014 - Hospital [facility] S10 Cooper Shelley, SDH (subdural hematoma) (Elena díaz Dx); 08/02/2014 Encounter [id number] Александр Duarte MD DVT (deep venous thrombosis), unspecifie d laterality; [place], [place] [address] [place] HTN (hypert ension); [id number] Neurogenic bladder; [phone] [place] ASHLEY ULLOA w/o com plication type II; [place] [address] Hyponatremia; [phone] Dyslipidemia; (Work) Neuropathic pain; [phone] Orthostatic hyp otension (Fax) Social History Tobacco Use Types Packs/Day Years Used Date Smoking Tobacco: Never Smokeless Tobacco: Never Alcohol Use Standard Drinks/Week Comments No 0 (1 standard drink = 0.6 oz pure alcoho l) Sex Assigned at Date Recorded Male 08/06/2021 5:59 PM CDT documented as of this encounter Last Filed Vital Signs Vital Sign Reading Time Taken Comments Blood Pressure 162/94 08/02/2014 3:31 PM CDT lying rakesh n Pulse 75 08/02/2014 3:31 PM CDT Temperature 36.3 ??C (97.4 ??F) 08/02/2014 2:33 PM CDT Respiratory Rate 15 08/02/2014 2:33 PM CDT Oxygen Saturation 100% 08/02/2014 2:33 PM CDT Inhaled Oxygen Concentration - - Weight 114 kg (251 lb 5.2 oz) 07/29/2014 12:00 AM CDT Height 182.9 cm (6') 07/28/2014 4:11 PM CDT Body Mass Index 34.09 07/28/2014 4:11 PM CDT documented in this encounter Discharge Summaries Melva Raymundo RN - 08/05/2014 3:04 PM CDT Neurosurgery Discharge Summary Jeff Cullen is a 69 yr old male Date of : 1945 Admit Date: 07/28/2014 4:05 PM Discharge date: 08/02/2014 Service: Neurosurgery Admitting Physician: Dr. Cooper Shelley Admitting diagnosis: Subdural hemorrhage following injury, without mention of open intracranial wound, unspecified state of consciousness [852.20] Discharge Diagnosis: same as above Encounter Diagnoses Name Primary? SDH (subdural hematoma) Yes ??? DVT (deep venous thrombosis), unspecified laterality ??? HTN (hypertension) ??? Neurogenic bladder ??? DM w/o complication type II ??? Hyponatremia ??? Dyslipidemia ??? Neuropathic pain ??? Orthostatic hypotension Procedures: Procedure(s): Open right frontoparietal craniotomy with open right frontal evacuation of subdural hematoma. Complications: None Consults: Endocrine for postop glucose management [facility] Medicine Hematology Pre Operative Hx: This is a 69-year-old gentleman who presented with approximately 8 days' worth of severe headache. 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 The patient is on Coumadin for deep venous thrombosis and came in with an INR of 1.1. We discussed the risks, benefits, and the patient and family ultimately agreed to surgery. Post op imagin07/29/[address] 1[address] Thin subdural collection containing gas and blood products overlying the right frontal lobe as described. No significant mass effect. 2. High right parietal keegan hole with a subdural drain which extends approximately 1 cm intracranially. 07/30/14 CTA Head 1. Prominent cortical vein coursing along the right frontoparietal convexity including just deep to the keegan hole. The tip of the subdural drain extends up to the vein and appears to contact it. There are slightly prominent distal MCA branches in this region, though no definite AVM nidus is identified. A small blush of contrast in the region of the cortical vein near the tip of the subdural drainage catheter is nonspecific. If there are persistent concerns for vascular malformation, conventional angiography would be suggested. 07/30/14 US Duplex BLE 1. Worsening of the DVT in the bilateral lower extremities. Large amount of nonocclusive thrombus in both legs as described above. 07/31/[address] 1. The shallow hyperdense subdural collection may have minimally decreased in size since the prior examination though is largely unchanged. Slight decrease in pneumocephalus. No new hemorrhage, midline shift, or definite infarct by CT. Labs: Component Latest Ref Rng 07/31/2014 08/01/2014 08/01/2014 08/02/2014 6:24 AM 5:44 PM BUN 7 - 20 mg/dl 16 19 21 (H) SODIUM 135 - 145 mmol/L 132 (L) 128 (L) 131 (L) 132 (L) POTASSIUM 3.5 - 5.3 mmol/L 4.3 4.3 4.2 CHLORIDE 95 - 106 mmol/L 94 (L) 95 97 CARBON DIOXIDE 22 - 30 mmol/L 28 28 28 GLUCOSE 70 - 180 mg/dl 158 151 145 CREATININE 0.66 - 1.25 mg/dl 0.65 (L) 0.60 (L) 0.59 (L) GFR, ESTIMATED >60 ml/min/1.73m2 >60 >60 >60 GFR EST IF >60 ml/min/1.73m2 >60 >60 >60 CALCIUM, TOTAL 8.4 - 10.2 mg/dl 9.5 9.2 8.9 ANION GAP (CALC.) CENTRAL 7 - 16 mmol/L 10 5 (L) 7 CALCIUM, TOTAL 8.4 - 10.2 mg/dL Component Latest Ref Rng 07/29/2014 HGB A1C 4.3 - 6.1 % 6.4 (H) Component Latest Ref Rng 07/28/2014 SPECIMEN DESCRIPTION BODY FLUID Nose Swab SPECIAL REQUESTS BODY FLUID Unspecified PCR No MRSA DNA Detected CULTURE BODY FLUID No Methicillin Resistant Staphylococcus aureus REPORT STATUS BODY FLUID CULTURE Final 07/29/2014 Brief Hospital Course: SDH s/p craniotomy, evacuation of hematoma: at the time of surgery, large cortical veins were noted.Subsequent work up was negative for findings of nidus of AVM. His surgical recovery was uncomplicated as his surgical drain was removed without incident and follow up imaging showed evolution of the subdural. Unfortunately, he experienced left sided weakness, thought to possibly be orthostatic hypotension. Medicine was consulted for that incident. He was hyponatremic and hypovolemic. Additionally, Hematology input was requested for management of ongoing lower extremities DVTs. Mr. Cullen has an existing IVC filter due to his paraplegia. PT and OT evaluations were completed. He had adaptive equipment to maintain his transfers and functional abilities i.e. Sliding board; propels own wheelchair. PT had no additional recommendations. OT recommended reevaluation of his left hand. If the weakness persists, he needs additional outpatient therapy. HTN/Orthostatic Hypotension: No previous known diagnosis. Current BP appears labile.Possible Hypovolemia.Other etiologies to consider would be autonomic dysfunction in setting of his underlying pathology and BP changes could have been compounded by poor muscle tone in Lower extremities to begin with. - Improved after 1 L of IV fluids. Current BP slightly labile and higher side(when supine) - Decreased dose of BB y'day and continue on the same dose - Monitor clinically. Slow posture changes. - Ideally, would have liked to use Compression stockings but given his DVT, hold it off(unless approved by hematology). Hyponatremia: Somewhat worse c/w y'day. Appears Hypovolemia. - Improved with iv fluids Hyperglycemia: Likely steroid-induced: Per endocrinology. Dyslipidemia: Continue Statin Neuropathic pain: On cymbalta/Neurontin/Baclofen Hx of recurrent DVT/Complex anticoagulation issues: Hematology consulted and f/u per recommendations. D/W family briefly about risks/benefits of being on A/C vs that of recurrent DVT and this being a tricky situation and await final recommendations from Hematology. Per Hematology: Though patient had one INR value around 4.2 several weeks ago, high concern that coumadin with goal of 2.5- 3 may be too high and that risks of intracranial bleeding clearly outweigh benefit of preventing a LE clot, given he has IVC filter in place already. However, his LE duplex showed worsening clot burden from 2009. coags normalized, negative for lupus anticoagulant. Agree with neurosurg, that in the short term, patient should not be anticoagulated. Physical Exam: BP 162/94 Pulse 75 Temp(Src) 97.4 ??F (36.3 ??C) (Oral) Resp 15 Ht 6' (1.829 m) Wt 114 kg (251 lb 5.2 oz) BMI 34.08 kg/m2 SpO2 100% Awake, alert General: in no acute distress Incision: clean, dry and intact Respiratory: Breathing unlabored Abdomen: no distention noted No drift Strength intact to BUE Disposition: The patient will be discharged to home in good condition Discharge Procedure Orders CT HEAD (ADULT) Standing Status: Future Standing Exp. Date: 08/02/17 Scheduling Instructions: WITHOUT CONTRAST EXAMS - NO PREP INSTRUCTIONS CONTACT CT WITH QUESTIONS Order Specific Question Answer Comments Appointment urgency? 2 WEEKS Prior to appointment with hematology Clinical Presentation (for radiologist) s/p SDH on coumadin Do not perform before 08/02/2014 Reading Priority Routine [101] CT HEAD (ADULT) Standing Status: Future Standing Exp. Date: 08/02/17 Scheduling Instructions: WITHOUT CONTRAST EXAMS - NO PREP INSTRUCTIONS CONTACT CT WITH QUESTIONS Order Specific Question Answer Comments Appointment urgency? OTHER prior to 09/14 appt Clinical Presentation (for radiologist) s/p SDH evac on coumadin Do not perform before 08/02/2014 Reading Priority Routine [101] IR CAROTID CEREBRAL BILATERAL Standing Status: Future Standing Exp. Date: 08/02/17 Order Comments: Please complete in 2 months Scheduling Instructions: NPO 2 hours Clear liquids 2-6 hours Full liquids 6-8 hours No solid food 8 hours COAGS, Hemogram/PLT, BMP need to be done with in one week of procedure. No Coumadin X 3 days No Lovenox X 24 hours No Heparin X 2 hours IV Order Specific Question Answer Comments Appointment urgency? OTHER 2 months Clinical Presentation (for radiologist) SDH on coumadin, very prominent cortical vein, CTA didn't show AVM but showed dilatation of vessels Clinical History (signs, symptoms, indications) Intracranial hemorrhage Do not perform before 08/02/2014 Reading Priority Routine [101] Follow up with your primary care physician Order Comments: Please follow up with your primary care physician in 2-3 days to have a sodium checkand have them adjust your salt tabs as needed. They will also need to be aware that we have stopped your coumadin in the setting of your subdural hemorrhage. Scheduling Instructions: If scheduling assistance is needed, please inquire with the Hospital staff upon discharge. Order Specific Question Answer Comments What type of follow up? IP Discharge Reason for visit? sodium follow up; s/p SDH on coumadin, now holding coumadin Appointment Urgency? Urgent (patient needs to be seen within one week) Neurosurgery (Non-Spine) Referral - Adults Order Comments: Your appointment with Sylvia Washington RN is scheduled for 08/11 at 2:20pm. You may cancel this if you would like to follow up with your primary care provider closer to home for suture/staple removal. Please have it done around this same date if you do it closer to home, and please let our office know. [facility], 4th floor [address] [place] [address] Cooper Shelley and Molly Diaz PA-C is scheduled for 09/14 at 2:40pm. You will need a head CT prior. Please stop at radiology on the 1st floor 30 minutes prior to appointment. [facility], 4th floor [address] [place] [address] Scheduling Instructions: Please call [phone], option [phone] for any rescheduling needs. Order Specific Question Answer Comments Reason for visit? s/p SDH evac 07/28 MK Appointment Urgency? Non-Urgent Visit type: Established Patient Other Referral Order Comments: Please complete the cerebral angiogram in 2 months Order Specific Question Answer Comments Reason for visit? interventional radiology, cerebral angiogram Appointment Urgency? Non-Urgent When to Resume Normal Activities: Order Comments: No lifting greater than 10 pounds. No driving until seen in follow-up in the neurosurgery clinic. Keep incision dry. Sleep on 2-3 pillows. Avoid laying on operative side of head. Discharge Diagnosis Order Comments: Sdh (subdural hematoma) (primary encounter diagnosis) Dvt (deep venous thrombosis), unspecified laterality Htn (hypertension) Neurogenic bladder Dm w/o complication type ii Hyponatremia Dyslipidemia Neuropathic pain Orthostatic hypotension Discharge Instructions Order Comments: Leave head incision open to air. Keep incision clean and dry. Sleep on 2-3 pillows. Avoid positioning on operative side of head. May use ice packs to incision as needed. May shampoo hair, do not scrub incision. Pat incision dry when done. Monitor for incisional changes daily and contact neurosurgery clinic with any concerns. Call the neurosurgery clinic if you have any incisional drainage. [phone]. If you would like to have your gabe/sutures removed closer to home, please contact our office to cancel your appointment, and have the sutures/gabe removed around 08/11. You will also need a head CT at the time of your follow up appointment with hematology to ensure the hemorrhage has resolved prior to restarting your coumadin. Call the doctor for these danger signs Order Comments: Any changes in your incision: redness, swelling, drainage, tenderness, or fever greater than 100.5. Any changes in sensation or decrease in strength to your extremeties. Neurosurgery clinic [phone]. Diet Order Comments: Resume pre operative diet. Lab Tests Order Comments: Please follow up with your primary care physician in 2-3 days to have a sodium checkand have them adjust your salt tabs if needed Radiology Order Comments: You will be scheduled for a head CT prior to your appointment on 09/[address] Shelley.You will also need to have a cerebral angiogram in approximately 2 months. Discharge medications: Discharge Medication List as of 08/02/2014 7:26 PM START taking these medications Details dexamethasone (AKA DECADRON) 2 MG tablet Take 1 Tab by mouth every 6 hours. Take 1 tab every 6 hoursx 2 days, then 1 tab every 12 hours x 2 days, then 1 tab every day x 2 days, Disp-14 Tab, R-0, Q6H (NON-STND) Starting 08/02/2014, Until Discontinued, Oral, Normal famotidine (AKA PEPCID) 20 MG tablet Take 1 Tab by mouth two times a day. Take while on decadron, Disp-20 Tab, R-0, BID Starting 08/02/2014, Until Discontinued, Oral, Normal HYDROcodone-acetaminophen (AKA NORCO) 5-325 MG tablet Take 1-2 Tabs by mouth every 4 hours as neededfor Pain., Disp-90 Tab, R-0, Q4H PRN Starting 08/02/2014, Until Discontinued, Oral, Normal levETIRAcetam (AKA KEPPRA) 1000 MG tablet Take 1 Tab by mouth every 12 hours. Indications: seizure ppx, Disp-60 Tab, R-2, Q12H (NON-STND) Starting 08/02/2014, Until Discontinued, Oral, Normal metoPROLOL tartrate (AKA LOPRESSOR) 25 MG tablet Take 0.5 Tabs by mouth two times a day., Disp-60 Tab, R-0, BID Starting 08/02/2014, Until Discontinued, Oral, Normal sennosides-docusate sodium (AKA SENNA-S,SENNA PLUS) 8.6-50 MG tablet Take 1 Tab by mouth daily at bedtime. Take while on narcotic pain medications. Hold for loose stools., Disp-30 Tab, R-2, HS Starting08/02/2014, Until Discontinued, Oral, Normal sodium chloride 1 G tablet Take 2 Tabs by mouth three times a day., Disp-30 Tab, R-0, TID Starting 08/02/2014, Until Discontinued, Oral, Normal CONTINUE these medications which have NOT CHANGED Details alendronate (AKA FOSAMAX) 70 MG tablet Take 70 mg by mouth once every week., WEEKLY, Until Discontinued, Oral, Historical atorvastatin (LIPITOR) 40 MG tablet Take 1 Tab by mouth daily., DAILY, Until Discontinued, Oral, Historical baclofen (AKA LIORESAL) 20 MG tablet Take 2 Tabs by mouth three times a day., Disp-90 Tab, R-0, TID Starting 06/01/2014, Until Discontinued, Oral, Historical Calcium-Vitamin D (CALTRATE 600 PLUS-VIT D OR) Take 2 Caps by mouth daily., DAILY, Until Discontinued, Oral, Historical cholecalciferol (AKA VITAMIN D3) 1000 UNIT tablet Take 2 Tabs by mouth daily., Disp-60 Tab, R-11, DAILY Starting 08/10/2011, Until Discontinued, Oral, No Print/No Fill DULoxetine (CYMBALTA) 20 MG capsule Take 4 Caps by mouth daily., Disp-360 Cap, R-0, DAILY Starting 01/26/2014, Until Discontinued, Oral, E-Prescribing3 month supply gabapentin (AKA NEURONTIN) 400 MG capsule Take 1 Cap by mouth three times a day., Disp-90 Cap, R-6, TID Starting 06/02/2014, Until Discontinued, Oral, E-Prescribing Generic Medication (COMPOUNDED CREAM) Apply 1-2 grams to the lower back TID prn. Ketamine 10%, boclofen 2%, gabapentin 6%, verapamil 6%. Apply to low back TID prn, Disp-250 g, R-6, Fax LORazepam (AKA ATIVAN) 0.5 MG tablet Take 2 Tabs by mouth three times a day., TID, Until Discontinued, Oral, Historical Multiple Vitamins-Minerals (CENTRUM SILVER OR) Until Discontinued, Historical niacin 500 MG tablet Take 500 mg by mouth daily with breakfast., QDAY WITH MEAL, Until Discontinued,Oral, Historical polyethylene glycol (AKA MIRALAX) packet Take 17 g by mouth daily., Disp-10 Each, R-2, DAILY Starting 03/15/2011, Until Discontinued, Oral, Normal TESTOSTERONE TD Patch, Until Discontinued, Historical tiZANidine (AKA ZANAFLEX) 4 MG capsule Take 1 Cap by mouth three times a day as needed for Muscle Spasms., Disp-90 Cap, R-6, TID PRN Starting 01/26/2014, Until Discontinued, Oral, E-Prescribing TRIMETHOPRIM OR Take 100 mg by mouth daily., DAILY, Until Discontinued, Oral, Historical STOP taking these medications warfarin (COUMADIN) 5 MG tablet Comments: Reason for Stopping: Total time spent at the time of discharge was > 30 minutes Melva Lanza RN, am serving as a scribe to document services personally performed by Molly Diaz PA-C. All data has been reviewed by Molly Diaz PA-C. Melva Raymundo R.N. Nurse Clinician Neurosurgery Pager [phone] Associated attestation - Molly Diaz PA-C - 08/10/2014 4:09 PM CDT Agree with above note I have reviewed the patient's images and performed a pertinent exam. Molly Diaz PA-C, 08/10/2014, 4:08 PM Neurosurgery [phone] documented in this encounter Discharge Instructions Discharge InstructionsAidee Forbes RN - 08/02/2014 3:47 PM CDT Information about future appointments scheduled by [facility] Management or Nursing (These appointments may appear in the list above) General Information Discharging physician: Dr. Cooper Shelley Discharge date: 08/02/14 Discharge Disposition HOME Immunization Most Recent Immunizations Administered Date(s) Administered ??? Flu Vac (3+ yrs) 10/06/2009 ??? H1n1 Miv Csl 3+ Yr (Injected) 12/06/2009 ??? Pneumococcal, PPSV23 10/06/2009 There is documentation in the Immunization/Injection section and/or the MAR (NOT in the notes) that the patient: Pneumonia:reported previously receiving the pneumococcal vaccine and it is documented in the Immun/Injection section of the chart Influenza:did not receive the influenza (seasonal flu) vaccine because it is not flu season. Home Care Instructions NONE Valuables/Medications Patient and/or family verified that all valuables have been returned: Yes Patient and/or family verified that all valuables removed from room safe: Yes Danger Signs Call your clinic or seek medical help if you have any sudden change in your condition or if you haveany of the following: SIGNS OF WOUND INFECTION: drainage from wound, redness or streak(s) from wound, increasing soreness around wound and fever greater than 101.5 degrees [facility] NONE Contact Information [address] [address] For questions about your discharge instructions call the nursing unit : [facility], Emergency & Urgently Needed Care: For emergencies call 911 and/or get medical help right away. If you are a [facility] member and have medical needs after clinic hours you may call the CareLineat [phone] or . Smoking and second-hand smoke exposure: Smoking damages blood vessels, reduces the oxygen in your blood and makes your heart beat too fast. If you smoke you should quit. Everyone should avoid second- hand smoke. If you would like further assistance after your discharge, please contact [phone] or visit [email or web address] can offer further [...] weight will also be followed by the [employer] Tech when you go in for your treatment. [...] the nursing unit desk to check out. documented in this encounter Medications at Time of Discharge Medication Sig Dispensed Refills Start Date End Date Multiple Vitamins-Minerals Take 1 Tab by 0 (CENTRUM SILVER OR) mouth daily. alendronate (AKA FOSAMAX) Take 70 mg by 0 08/19/2014 70 MG tablet mouth once every week. atorvastatin (LIPITOR) 40 Take 1 Tab by 0 10/21/2014 MG tablet mouth daily. baclofen (AKA LIORESAL) 20 Take 2 Tabs by 90 Tab 0 06/0110/21/2014 MG tablet mouth three times a day. Calcium-Vitamin D (CALTRATE Take 2 Caps by 0 10/20/2014 600 PLUS-VIT D OR) mouth daily. cholecalciferol (AKA Take 2 Tabs by 60 Tab 11 08/10/2011 10/21/2014 VITAMIN D3) 1000 UNIT mouth daily. tabletIndications: Osteoporosis (HRC), Hyperparathyroidism (HRC), Vitamin D deficiency (HRC) dexamethasone (AKA Take 1 Tab by 14 Tab 0 08/02/201407/2014 DECADRON) 2 MG tablet mouth every 6 hours. Take 1 tab every 6 hours x 2 days, then 1 tab every 12 hours x 2 days, then 1 tab every day x 2 days DULoxetine (CYMBALTA) 20 MG Take 4 Caps by 360 Cap 0 01/0909/17/2014 capsule mouth daily. famotidine (AKA PEPCID) 20 Take 1 Tab by 20 Tab 0 201308/19/2014 MG tablet mouth two times a day. Take while on decadron gabapentin (AKA NEURONTIN) Take 1 Cap by 90 Cap 6 201310/21/2014 400 MG capsule mouth three times a day. Generic Medication Apply 1-2 grams to the [...] levETIRAcetam (AKA KEPPRA) Take 1 Tab by 60 Tab 2 201310/22/2014 1000 MG tabletIndications: mouth every 12 seizure ppx hours. Indications: seizure ppx LORazepam (AKA ATIVAN) 0.5 Take 2 Tabs by 0 09/17/2014 MG tablet mouth three times a day. metoPROLOL tartrate (AKA Take 0.5 Tabs by 60 Tab 0 08/0208/19/2014 LOPRESSOR) 25 MG tablet mouth two times a day. niacin 500 MG tablet Take 500 mg by 0 10/21/2014 mouth daily with breakfast. polyethylene glycol (AKA Take 17 g by mouth 10 Each 2 03/201110/21/2014 MIRALAX) packet daily. sennosides-docusate sodium Take 1 Tab by 30 Tab 2 201308/19/2014 (AKA SENNA-S,SENNA PLUS) mouth daily at 8.6-50 MG tablet bedtime. Take while on narcotic pain medications. Hold for loose stools. sodium chloride 1 G tablet Take 2 Tabs by 30 Tab 0 08/0208/19/2014 mouth three times a day. TESTOSTERONE TD Patch 0 4 tiZANidine (AKA ZANAFLEX) 4 Take 1 Cap by 90 Cap 6 01/2608/19/2014 MG capsule mouth three times a day as needed for Muscle Spasms. TRIMETHOPRIM OR Take 100 mg by 0 10/20 mouth daily. documented as of this encounter Progress Notes Pricilla Brand MD - 08/02/2014 3:57 PM CDT General Medicine Progress Note Jeff Cullen Date of Admission: 07/28/2014 Date of Service: 08/02/2014 Subjective: Mr. Cullen is doing well, no complaints. Reports high left UE is getting stronger. He has been working with PT. Also reports some back pain from lying in bed. Denies CVA sx, no CP, no SOB, no abd pain, no dysuria. He asked about heme f/u, if he should wear compression stockings, and if we should image his pre-existing IVC filter. Objective: Most recent vital signs: BP 162/94 Pulse 75 Temp(Src) 97.4 ??F (36.3 ??C) (Oral) Resp 15 Ht 6' (1.829 m) Wt 114 kg (251 lb 5.2 oz) BMI 34.08 kg/m2 SpO2 100% Wt Readings from Last 2 Encounters: 07/29/14 114 kg (251 lb 5.2 oz) 07/29/14 114 kg (251 lb 5.2 oz) Intake/Output Summary (Last 24 hours) at 08/02/14 1744 Last data filed at 08/02/14 0600 Gross per 24 hour Intake 0 ml Output 2600 ml Net -2600 ml Current Facility-Administered Medications Medication Dose Route Frequency ??? acetaminophen (aka TYLENOL) tablet 325-650 mg 325-650 mg Oral Q4H PRN ??? atorvastatin (aka LIPITOR) tablet 40 mg 40 mg Oral 2000 ??? baclofen (aka LIORESAL) tablet 40 mg 40 mg Oral TID ??? bisacodyl (aka DULCOLAX) suppository 10 mg 10 mg Rectal DAILY PRN ??? dexamethasone (aka DECADRON) tablet 4 mg 4 mg Oral Q6H ??? diphenhydrAMINE (aka BENADRYL) caplet 25 mg 25 mg Oral Q4H PRN ??? DULoxetine (aka CYMBALTA) delayed release capsule 80 mg 80 mg Oral Daily ??? famotidine (aka PEPCID) tablet 20 mg 20 mg Oral BID ??? gabapentin (aka NEURONTIN) capsule 400 mg 400 mg Oral TID ??? glucagon HCL (RDNA) (aka GLUCAGEN) injection 1 mg 1 mg IM ONCE PRN ??? glucose-ascorbic acid (aka [id number]) chewable tablet 4 Tab 4 Tab Oral Q15MIN PRN ??? hydrALAZINE (aka APRESOLINE) tablet 25 mg 25 mg Oral Q6H PRN ??? HYDROcodone-acetaminophen (aka NORCO) 5-325 MG tablet TABS 1-2 Tab 1-2 Tab Oral Q4H PRN ??? HYDROmorphone (aka DILAUDID) injection 0.5-1 mg 0.5-1 mg IV Q1H PRN ??? insulin glargine (aka LANtus) injection 15 Units 15 Units SC Noon ??? insulin lispro (aka humALOG) injection vial 1-10 Units 1-10 Units SC PRN based on Blood Sugar ??? levETIRAcetam (aka KEPPRA) tablet 1,000 mg 1,000 mg Oral Q12H(NS) ??? LORazepam (aka ATIVAN) tablet 1 mg 1 mg Oral TID ??? magnesium hydroxide (aka MILK OF MAGNESIA) oral liquid 30 mL 30 mL Oral DAILY PRN ??? metoPROLOL tartrate (aka LOPRESSOR) tablet 12.5 mg 12.5 mg Oral BID ??? ondansetron (aka ZOFRAN) injection 4 mg 4 mg IV Q4H PRN ??? polyethylene glycol (aka MIRALAX) oral powder 1 Packet 17 g Oral Daily ??? sennosides-docusate sodium (aka SENNA-S,SENNA PLUS) 8.6-50 MG tablet 1 Tab 1 Tab Oral At Bedtime ??? sodium chloride tablet 2 g 2 g Oral TID Physical exam: General: WDWN male lying comfortably in bed, NAD HEENT: NC/AT, MMM, OP clear CARDIAC: RRR, no m/r/g appreciated. RESP: decreased breath sounds at left base, otherwise CTAB, no wheezes, rhonchi or crackles appreciated. GI: NABS, NT/ND, no guarding or rebound EXTREMITIES: No LE edema, pulses DP 2/2 on left 1/2 on right SKIN: No acute lesions appreciated NEURO: moves all extremities spontaneously Labs: Results for orders placed during the hospital encounter of 07/28/14 (from the past 24 hour(s)) GLUCOSE, WHOLE BLOOD POC Result Value Range GLUCOSE, WHOLE BLOOD 224 (*) 70 - 180 mg/dl BASIC METABOLIC PANEL Result Value Range SODIUM 132 (*) 135 - 145 mmol/L POTASSIUM 4.2 3.5 - 5.3 mmol/L CHLORIDE 97 95 - 106 mmol/L CO2 28 22 - 30 mmol/L ANION GAP (CALC.) 7 7 - 16 mmol/L GLUCOSE 145 70 - 180 mg/dl CALCIUM 8.9 8.4 - 10.2 mg/dl BUN 21 (*) 7 - 20 mg/dl CREATININE 0.59 (*) 0.66 - 1.25 mg/dl GFR, ESTIMATED >60 >60 ml/min/1.73m2 GFR EST IF >60 >60 ml/min/1.73m2 Narrative: Performed at [facility], [address] [place] [address] GLUCOSE, WHOLE BLOOD POC Result Value Range GLUCOSE, WHOLE BLOOD 143 70 - 180 mg/dl GLUCOSE, WHOLE BLOOD POC Result Value Range GLUCOSE, WHOLE BLOOD 158 70 - 180 mg/dl Assessment & Plans: Jeff Cullen is a 69 year old male on coumadin for 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 # History of DVTs, on coumadin now s/p craniotomy: Though patient had one INR value around 4.2 several weeks ago, high concern that coumadin with goal of 2.5- 3 may be too high and that risks of intracranial bleeding clearly outweigh benefit of preventing a LE clot, given he has IVC filter in place already. However, his LE duplex showed worsening clot burden from 2009. coags normalized, negative for lupus anticoagulant. Agree with neurosurg, that in the short term, patient should not be anticoagulted. Recommendations - f/u with heme as outpatient to discuss resuming anticoagulation and discuss potential need for imaging of IVC filter after cleared by neurosurg - f/u with neurosurg as outpt with CT head to assess evolution of intracranial bleed - wear compression stocking as tolerated Patient seen and plan of care discussed with Dr. Joaquín Bradn MD, PGY1. Internal Medicine Resident. [phone] Associated attestation - Bayron Yanes MD - 08/02/2014 10:18 PM CDT I saw and examined the patient today. I agree with the findings and plan of care as documented in the note by Dr. Brand. Bayron Yanes MD 08/02/2014 10:17 PM Mr. Cullen will follow up with Hematology in about [address] head prior. We will make arrangements in clinic for him to be seen. MD Emily Glaser Brigette R, PA-C - 08/02/2014 2:24 PM CDT Neurosurgery Progress Note Date of service: 08/02/2014 Subjective: Doing well this AM. Feels ready to go home. Worked with therapy Objective: Vitals - BP 159/97 Pulse 79 Temp(Src) 97.6 ??F (36.4 ??C) (Oral) Resp 12 Ht 6' (1.829 m) Wt 251 lb 5.2 oz (114 kg) BMI 34.08 kg/m2 SpO2 96% Temp (24hrs), Min:97.6 ??F (36.4 ??C), Max:98 ??F (36.7 ??C) Physical Exam - Awake, alert General: in no acute distress Incision: clean, dry and intact Respiratory: Breathing unlabored Abdomen: no distention noted No drift Strength intact to BUE Imaging: No new imaging LABS: HGB (g/dl) Date Value 07/30/2014 11.8* Normal: 12-17 SODIUM (mmol/L) Date Value 08/02/2014 132* INR (no units) Date Value 07/30/2014 1.1 05/22/2010 3.0 PLTS (k/ul) Date Value 07/30/2014 177 Assessment 69 yo man on chronic coumadin with acute on chronic SDH s/p keegan hole evac SDH 07/28/[address] Shelley. Wc bound due to impaired mobility S/p ependymoma resection and treatment; coumadin halfway use; hasIVC filter. Neurogenic bladder. Prominent cortical vein noted in surgery, CTA negative for AVM. Transient weakness LUE associated with being upright. He has a history of orthostatic hypotension. Hyponatremia Plan: Patient seen in rounds with Dr. Cooper Shelley this morning. Family members present during rounds this morning. Updated on patient's condition/plan. Salt tabs started this weekend. Per medicine, follow up with PCP for recheck in 2-3 days. Mobilize as tolerated SBP goal <150 PT/OT eval and treat NO ANTICOAGULATION; Continue SCDs when in bed. 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; IVC filterin place. Recommend follow up as outpatient in 2-3 weeks Keppra BID Will need formal angiogram in approx 2 months after discharge to further assess for AVM Dispo: Home today, spoke with hematology, they are ok with DC Molly Diaz PA-C, 08/02/2014, 2:24 PM Neurosurgery [phone] Priti Hickey RN - 08/02/2014 9:44 AM CDT [facility]. PA Notified Note Name of MD notified: Endocrine PA Time of MD notification: 0900 hours and 44 minutes Reason: Question if he is Diabetic and if he needs counseling after hospital? Did you see him today? Response: No treatment needed at home. Is pre-diabetic, diet controlled. Priti Hickey RN --- End of Report --- Jessie Nieves MBBS - 08/02/2014 9:08 AM CDT Patient's name: Jeff Cullen Date of Service: 08/02/2014 Patient seen and examined; Chart reviewed. Patient overall feels comfortable. No recurrent dizzy spells. Denies any sx like CP/SOB/Palpitations. No recurrent Lt hand weakness episodes. Per patient, used to take fludrocortisone in the past but has been off for past 3-4 months. BP 159/97 Pulse 79 Temp(Src) 97.6 ??F (36.4 ??C) (Oral) Resp 12 Ht 6' (1.829 m) Wt 114 kg (251 lb 5.2 oz) BMI 34.08 kg/m2 SpO2 96% Intake/Output Summary (Last 24 hours) at 08/02/14 1014 Last data filed at 08/02/14 0600 Gross per 24 hour Intake 0 ml Output 3950 ml Net -3950 ml PHYSICAL EXAM General: Patient appears fairly comfortable and in no acute distress HEENT:Oral mucosa moist Neck:No jugular vein distension. Chest:B/L CTA Heart:Regular rate and rhythm. Abd:soft, bowel sounds present. No tenderness/Distention noted. Extremities: 2+ pulses bilaterally LAB/IMAGE Results for orders placed during the hospital encounter of 07/28/14 (from the past 24 hour(s)) GLUCOSE, WHOLE BLOOD POC Result Value Range GLUCOSE, WHOLE BLOOD 280 (*) 70 - 180 mg/dl GLUCOSE, WHOLE BLOOD POC Result Value Range GLUCOSE, WHOLE BLOOD 274 (*) 70 - 180 mg/dl SODIUM, URINE RANDOM Result Value Range SODIUM, URINE RANDOM 13 Narrative: Performed at [facility], [address] [place] [id number] OSMOLALITY, URINE Result Value Range OSMOLALITY, URINE 164 Narrative: Performed at [facility], [address] [place] [id number] GLUCOSE, WHOLE BLOOD POC Result Value Range GLUCOSE, WHOLE BLOOD 182 (*) 70 - 180 mg/dl SODIUM Result Value Range SODIUM 131 (*) 135 - 145 mmol/L Narrative: Performed at [facility], [address] [place] [id number] GLUCOSE, WHOLE BLOOD POC Result Value Range GLUCOSE, WHOLE BLOOD 224 (*) 70 - 180 mg/dl BASIC METABOLIC PANEL Result Value Range SODIUM 132 (*) 135 - 145 mmol/L POTASSIUM 4.2 3.5 - 5.3 mmol/L CHLORIDE 97 95 - 106 mmol/L CO2 28 22 - 30 mmol/L ANION GAP (CALC.) 7 7 - 16 mmol/L GLUCOSE 145 70 - 180 mg/dl CALCIUM 8.9 8.4 - 10.2 mg/dl BUN 21 (*) 7 - 20 mg/dl CREATININE 0.59 (*) 0.66 - 1.25 mg/dl GFR, ESTIMATED >60 >60 ml/min/1.73m2 GFR EST IF >60 >60 ml/min/1.73m2 Narrative: Performed at [facility], [address] [place] [id number] GLUCOSE, WHOLE BLOOD POC Result Value Range GLUCOSE, WHOLE BLOOD 143 70 - 180 mg/dl I reviewed the patient's medications I reviewed the patient's labs ASSESSMENT/PLAN 1. Acute on chronic SDH: s/p evacuation. Management per NSG team. 2. HTN/Orthostatic Hypotension: No previous known diagnosis. Current BP appears labile.Possible Hypovolemia.Other etiologies to consider would be autonomic dysfunction in setting of his underlying pathology and BP changes could have been compounded by poor muscle tone in Lower extremities to begin with. - Improved after 1 L of IV fluids. Current BP slightly labile and higher side(when supine) - Decreased dose of BB y'day and continue on the same dose - Monitor clinically. Slow posture changes. - Ideally, would have liked to use Compression stockings but given his DVT, hold it off(unless approved by hematology). 3. Hyponatremia: Somewhat worse c/w y'day. Appears Hypovolemia. - Improved with iv fluids 4. Hyperglycemia: Likely steroid-induced: Per endocrinology. 5. Dyslipidemia: Continue Statin 6. Neuropathic pain: On cymbalta/Neurontin/Baclofen 7. Hx of recurrent DVT/Complex anticoagulation issues: Hematology consulted and f/u per recommendations. D/W family briefly about risks/benefits of being on A/C vs that of recurrent DVT and this being a tricky situation and await final recommendations from Hematology. Overall feels better. Scheduled for PT later today and could possibly be discharged from IM standpoint if he does well with therapies and follow up with PCP in 2-3 days and have repeat Na+ levels checked there. If he were to feel dizzy or recurrent episodes of significant orthostatic hypotension, may need additional IV fluids and monitoring and hold off discharge at that time. Communicated with VALERIE. Jessie Nieves MD (hospital medicine) Pager: [phone] Jessie Nieves MBBS - 08/01/2014 11:30 AM CDT Patient's name: Jeff Cullen Date of Service: 08/01/2014 Patient seen and examined; Chart reviewed. Patient overall feels comfortable. Had a brief dizzy spell when he was transferred OOB to chair and BP was noted to be transiently low with SBP in 70's and now picked up and sx have resolved. Denies any sx like CP/SOB/Palpitations. No recurrent Lt hand weakness episodes. Per patient, used to take fludrocortisone in the past but has been off for past 3-4 months. BP 103/52 Pulse 64 Temp(Src) 98 ??F (36.7 ??C) (Oral) Resp 18 Ht 6' (1.829 m) Wt 114 kg (251 lb 5.2 oz) BMI 34.08 kg/m2 SpO2 95% Intake/Output Summary (Last 24 hours) at 08/01/14 1131 Last data filed at 08/01/14 0600 Gross per 24 hour Intake 360 ml Output 3775 ml Net -3415 ml PHYSICAL EXAM General: Patient appears fairly comfortable and in no acute distress HEENT:Oral mucosa moist Neck:No jugular vein distension. Chest:B/L CTA Heart:Regular rate and rhythm. Abd:soft, bowel sounds present. No tenderness/Distention noted. Extremities: No edema, No cyanosis.2+ pulses bilaterally LAB/IMAGE Lab Results Component Value Date/Time WBC 11.0 07/30/2014 6:56 AM HGB 11.8* 07/30/2014 6:56 AM PLTS 177 07/30/2014 6:56 AM Lab Results Component Value Date/Time BUN 19 08/01/2014 6:24 AM CREATININE 0.60* 08/01/2014 6:24 AM Lab Results Component Value Date/Time SODIUM 128* 08/01/2014 6:24 AM K 4.3 08/01/2014 6:24 AM CO2 28 08/01/2014 6:24 AM CHLORIDE 95 08/01/2014 6:24 AM GLUCOSE 151 08/01/2014 6:24 AM MG 1.9 08/07/2011 11:52 AM CA 9.2 08/01/2014 6:24 AM PHOS 3.0 08/07/2011 11:52 AM Lab Results Component Value Date/Time TROP <0.012 04/12/2010 10:59 AM TROP <0.012 04/12/2010 4:25 AM TROP <0.012 04/11/2010 10:30 PM Last 24 Hour Accucheck Glucose Results: Recent Labs 07/31/14 1307 07/31/14 1745 07/31/14 2058 07/31/14 2301 08/01/14 0758 GLWB 175 192* 201* 220* 148 I reviewed the patient's medications I reviewed the patient's labs ASSESSMENT/PLAN 1. Acute on chronic SDH: s/p evacuation. Management per NSG team. 2. HTN/Orthostatic Hypotension: No previous known diagnosis. Current BP appears labile.?Hypovolemia.Other etiologies to consider would be autonomic dysfunction in setting of his underlying pathology and BP changes could have been compounded by poor muscle tone in Lower extremities to begin with. - Trial of IV fluids - Decrease dose of BB for now - Monitor clinically. Slow posture changes. - Ideally, would have liked to use Compression stockings but given his DVT, hold it off(unless approved by hematology). 3. Hyponatremia: Somewhat worse c/w y'day. Appears Hypovolemia. - [place] of IV fluids - Repeat levels in pm. 4. Hyperglycemia: Likely steroid-induced: Per endocrinology. 5. Dyslipidemia: Continue Statin 6. Neuropathic pain: On cymbalta/Neurontin/Baclofen 7. Hx of recurrent DVT/Complex anticoagulation issues: Hematology consulted and f/u per recommendations. D/W family briefly about risks/benefits of being on A/C vs that of recurrent DVT and this being a tricky situation and await final recommendations from Hematology. Jessie Nieves MD ([facility] medicine) Pager: [phone] Merly Gaytan MD - 08/01/2014 11:17 AM CDT S: Another episode of left arm clumsiness/weakness yesterday when up. Otherwise no complaints. No headache. O: BP 100/57 Pulse 78 Temp(Src) 98 ??F (36.7 ??C) (Oral) Resp 18 Ht 6' (1.829 m) Wt 114 kg(251 lb 5.2 oz) BMI 34.08 kg/m2 SpO2 95% Awake, alert, NAD NLB LUE normal appearing strength Incision without erythema or drainage Na 128 A/P: 69 yo man on chronic coumadin with acute on chronic SDH s/p keegan hole evac SDH 07/28/[address] Shelley. Wc bound due to impaired mobility S/p ependymoma resection and treatment; coumadin halfway use; has IVC filter. Neurogenic bladder. Prominent cortical vein noted in surgery, CTA negative for AVM. Transient weakness LUE associated with being upright. He has a history of orthostatic hypotension. -Will start salt tabs for hyponatremia -Urine sodium pending -Decreased metoprolol dose -No anticoagulation for now, filter in place. Heme following -PT/OT -Continue keppra -No new imaging planned for now -Will need formal angiogram in approx 2 months after discharge to further assess for AVM -Dispo: 1-2 more days likely Patient seen with and plan discussed with Dr. Mateo Gaytan MD, PhD Neurosurgery prasanna [phone] Priti Hickey RN - 07/31/2014 12:14 PM CDT [facility]. MD Notified Note Name of MD notified: Neurosurgery - Merly Gaytan Time of MD notification: 1200 hours and 5 minutes Reason: Feels weaker on left side, left arm is weak Response: Will come to see. Priti Hickey RN --- End of Report --- Merly Gaytan MD - 07/31/2014 10:59 AM CDT S: No significant events overnight. HCT looks stable today. O: BP 130/84 Pulse 71 Temp(Src) 98.5 ??F (36.9 ??C) (Oral) Resp 18 Ht 6' (1.829 m) Wt 114 kg (251 lb 5.2 oz) BMI 34.08 kg/m2 SpO2 93% Awake, alert, NAD Incision intact, no erythema or drainage Moves upper extremities with no weakness Double stim test, joint testing normal HCT with small amount of new blood but not significant A/P: 69 yo man on chronic coumadin with acute on chronic SDH s/p keegan hole evac SDH 07/28/[address] Shelley. Wc bound due to impaired mobility S/p ependymoma resection and treatment; coumadin halfway use; has IVC filter. Neurogenic bladder. Prominent cortical vein noted in surgery, CTA negative for AVM.Symptoms from yesterday seem to have resolved. Imaging stable. -SBP < 150 -No anticoagulation for now, filter in place. Heme following -PT/OT -Continue keppra -No new imaging planned for now -Will need formal angiogram in approx 2 months after discharge to further assess for AVM -Dispo: 1-2 more days likely Patient seen with and plan discussed with Dr. Mateo Gaytan MD, PhD Neurosurgery nick [phone] Melva Raymundo RN - 07/30/2014 4:10 PM CDT Neurosurgery Progress Note 07/30/14 GEORGIE drain removed. Purse string suture tied. Incision clean and dry. Melva Raymundo R.N. Nurse Clinician Neurosurgery Pager [phone] Associated attestation - Cooper Shelley MD - 07/30/2014 4:17 PM CDT Agree with above note I have reviewed the patient's images and performed a pertinent exam. Cooper Shelley MD Neurosurgery Jodi Aguila PA-C - 07/30/2014 2:02 PM CDT Jeff is s/p R SDH evacuation on 07/28 [employer] called for neuro change accompanied by diaphoresis and hypotension. Pt had sudden onset occular MORAN and left arm weakness with facial droop The arm weakness has resolved, no drift. Still with mild left facial weakness. He is alert, oriented, sitting in bed. The MORAN is subsiding. Jeff remembers the event. His vitals are stable. I discussed differential with the family: seizures, rebleed, pneumocephalus, stroke. Had normal CTA this AM Plan: Stat CT head. Keppra load then 1 g BID Decadron 10 mg load, then 4q6 IV. Pepcid for PUD ppx Dr. Shelley aware, he is at clinic but agrees with this plan. Eloina Mills MD - 07/30/2014 1:32 PM CDT [facility] Rapid Response Team Note Time, Date & Location Rm: [phone] Transfer/Admission Information 69y right handed M with chronic LE paralysis. Recent right craniotomy s/p drain removal today with acute onset of severe headache and left arm sudden weakness. Previous to this episode patient had equal strength bilaterally. PE: BP 151/86 Pulse 95 Temp(Src) 98.1 ??F (36.7 ??C) (Oral) Resp 16 Ht 6' (1.829 m) Wt 114 kg (251 lb 5.2 oz) BMI 34.08 kg/m2 SpO2 96% GEN: NAD, diaphoretic, speaking in full sentences NEURO: Alert and appropriate, anxious, initially with 4+/5 weakness of Left bicep, brachioradialis and intrinsic hand muscles, right arm 5/5. EOEMI. Tongue deviation to the right. LEs chronically paralyzed. Assessment: Question of transient air s/p drain pull vs. acute clot, re-bleed, seizure, or less likely stroke. Recommendation 1. STAT Head CT 2. Keppra per neurosurgery 3. Neurosurgery team is present and is comfortable taking over Mr. Cullen's cares Outcome Repeat neuro exam: Improved strength near normal with less tongue deviation to the right. Strength now 5/5 bilaterally. Headache resolved. Eye pain resolved. Team Members Present Nurse: Tania Mott and Dustin Garcia. Physician: Gene Mills MD TT spent 35 minutes. --- End of Report --- Molly Diaz PA-C - 07/30/2014 10:29 AM CDT Neurosurgery Progress Note Date of service: 07/30/2014 Subjective: Headache improved. Had some hallucinations overnight, resolved this AM. Objective: Vitals - BP 151/86 Pulse 95 Temp(Src) 98.1 ??F (36.7 ??C) (Oral) Resp 16 Ht 6' (1.829 m) Wt 251 lb 5.2 oz (114 kg) BMI 34.08 kg/m2 SpO2 96% Temp (24hrs), Min:97.6 ??F (36.4 ??C), Max:98.7 ??F (37.1 ??C) Physical Exam - Awake, alert General: in no acute distress Incision: covered Respiratory: Breathing unlabored Abdomen: no distention noted Strength: No drift; CN II-XII intact. No movement BLE Imaging: CTA negative for clear AVM but does show large draining vein and prominence of arteries Drains: 20 mL/8 hours 20 mL/24 hours LABS: HGB (g/dl) Date Value 07/30/2014 11.8* Normal: 12-17 SODIUM (mmol/L) Date Value 07/30/2014 132* INR (no units) Date Value 07/30/2014 1.2* 05/22/2010 3.0 PLTS (k/ul) Date Value 07/30/2014 177 Assessment 69 yo man on chronic coumadin with acute on chronic SDH s/p keegan hole evac SDH 07/28/[address] Shelley. Wc bound due to impaired mobility S/p ependymoma resection and treatment; coumadin halfway use; hasIVC filter. Neurogenic bladder. Prominent cortical vein noted in surgery, CTA negative for AVM Plan: Patient seen in rounds with Dr. Cooper Shelley this morning. Family members present during rounds this morning. Updated on patient's condition/plan. DC drain today Head CT in AM Na 132 today, will recheck in AM. May need salt tabs if trending down. Goal 135-145 Mobilize as tolerated SBP goal <150 PT/OT eval and treat NO ANTICOAGULATION; Continue SCDs when in bed. 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; IVC filterin place Doppler today to r/o DVT at this point Does not need anticonvulsant Will need formal angiogram in approx 2 months after discharge to further assess for AVM Dispo: Pending hematology recs, therapy Molly Diaz PA-C, 07/30/2014, 10:29 AM Neurosurgery [phone] Brittny Barrett, CERTIFIED [employer] APPRAISER, HAND[employer] FRAMES INSPECTOR - 07/30/2014 9:58 AM CDT Endocrine [facility] Follow Up Date of service: 07/30/2014 S: Jeff Cullen 69 yr male is seen in follow up per [facility]IP protocol for post-op glucose management sstatus post craniotomy s/p SDH Pt has well controlled DM II HGB A1C (%) Date Value 07/29/2014 6.4* No oral antiglycemics at home. D5 gtt: no BGs nicely controlled O: BP 151/86 Pulse 95 Temp(Src) 98.1 ??F (36.7 ??C) (Oral) Resp 16 Ht 6' (1.829 m) Wt 114 kg (251 lb 5.2 oz) BMI 34.08 kg/m2 SpO2 96% Estimated body mass index is 34.08 kg/(m^2) as calculated from the following: Height as of this encounter: 6' (1.829 m). Weight as of this encounter: 114 kg (251 lb 5.2 oz). Exam: general: No acute distress Last 24 Hour Accucheck Glucose Results: Recent Labs 07/29/14 1157 07/29/14 1652 07/30/14 0802 GLWB 130 166 94 ASSESSMENT/PLAN: DM II, controlled PLAN: Continue Humalog sliding scale as needed FSG QAC and HS Discharge Recommendations All insulin to be discontinued upon discharge. Endo will sign off today and continue to monitor peripherally x 24 hours. Brittny Barrett CNP Endocrinology Pager: [phone] Jodi Ordonez RN - 07/29/2014 9:29 PM CDT [facility] Nursing Transfer Note (To/From ICU / Progressive Care) Admission Date/Time: 07/28/2014 4:05 PM Time of transfer: 2129 Transfer from room #: 3605 Accepting nursing unit: S10 Valuables/belongings sent with patient?: Yes Dentures: No Glasses/Contacts: Glasses Hearing Aid: N/A Transported by: Bed Family notified of unit transfer and change in patients condition: Yes General condition of patient at time of transfer: stable Pressure ulcer present: no Select criteria that may indicate need for P500 mattress: None Does patient need P500 mattress upon transfer? No Please order P500 mattress, if it is indicated. Need for continued central line assessed: N/A (Pneumococcal / Influenza immunization assessment needs to be completed prior to transfer if not already done.) Device detached from patient in Epic prior to transfer: Yes Report Completed by: Jodi Ordonez RN --- End of Report --- Julien Salazar MD - 07/29/2014 1:10 PM CDT [facility] SICU Critical Care Progress Note Date of service: 07/29/2014 Staff/Service: Cooper Shelley MD, Neurosurgery 69 yr, male HPI / [place] Events Over Last 24 Hours Patient was mildly hypertensive overnight but has resolved. Nicardipine gtt d/c'd and PRN labetolol started. SBP <150 currently being achieved. Procedures / Events: 07/28/2014 :: right craniotomy Injuries/SICU Admission Diagnoses: :: acute on chronic subdural hematoma New Diagnoses/Complications: None Length of Stay: Post-Op Day: #1, ICU Day: #1, Hospital Day: #1 Physical Exam: Vitals: Temp (24hrs), Min:97.5 ??F (36.4 ??C), Max:99 ??F (37.2 ??C) Temp: 97.7 ??F (36.5 ??C) Pulse: 120 BP: 124/73 mmHg Resp: 20 General: WD, WN male, extubated and in NAD Neuro/HEENT Exam: :: NC / see below ::Right Pupil: 2 mm and Normal; Left Pupil: 2 mm and Normal :: Motor Sensory: BRYSON :: GCS: (Eyes) 4 + (Motor) 5 + (Voice) 6 = 15 ICP Monitoring :: none Drain(s): :: GEORGIE drain from right craniotomy site, Output 60 cc since placed. Some bloody discharge from surgical site. Pulmonary: Exam: :: Breath sounds clear bilaterally CV: Exam: :: RRR without murmurs rubs or gallops :: Pulses: 100 External Grinder Tool: NSR GI: Exam: :: Soft, non-tender, non-distended Tubes/Drains: :: pre-existing colostomy bag Renal / : Exam: Normal external genitalia, de la cruz in place Extremities/Musculoskeletal: Extremities warm, pulses palpable, and no edema present Compartments: Soft Skin Exam: No erythema of line sites Skin Changes Associated with Devices/Pressure: none Devices: SCDs Daily Line Reassessment: # 1 - PIV x March D/C left wrist PIV due to some tingling and numbness near site. Labs: Last CBC w/differential result: Lab Results Component Value Date/Time WBC 7.7 07/29/2014 3:19 AM RBC 4.36* 07/29/2014 3:19 AM HGB 13.3* 07/29/2014 3:19 AM HCT 39.3* 07/29/2014 3:19 AM MCV 90.1 07/29/2014 3:19 AM MCH 30.5 07/29/2014 3:19 AM MCHC 33.8 07/29/2014 3:19 AM PLTS 173 07/29/2014 3:19 AM RDW 13.4 07/29/2014 3:19 AM PMN 7.8* 05/22/2010 12:05 PM LYMA 1.4 05/22/2010 12:05 PM MONOA 0.6 05/22/2010 12:05 PM EOSA 0.0 05/22/2010 12:05 PM BASA 0.0 05/22/2010 12:05 PM Last Chem10 results: Lab Results Component Value Date/Time SODIUM 136 07/29/2014 4:10 AM K 4.8 07/29/2014 4:10 AM CHLORIDE 99 07/29/2014 4:10 AM CO2 27 07/29/2014 4:10 AM BUN 10 07/29/2014 4:10 AM CREATININE 0.71 07/29/2014 4:10 AM GLUCOSE 186* 07/29/2014 4:10 AM CA 9.3 07/29/2014 4:10 AM ANIONGAP 10 07/29/2014 4:10 AM MG 1.9 08/07/2011 11:52 AM PHOS 3.0 08/07/2011 11:52 AM Radiology: 07/29/[address]: CONCLUSION: 1. Thin subdural collection containing gas and blood products overlying the right frontal lobe as described. No significant mass effect. 2. High right parietal keegan hole with a subdural drain which extends approximately 1 cm intracranially. Assessment/Plan of Care: Neuro/HEENT: Acute on chronic subdural hematoma Right craniotomy Neurosurgery plan as of 07/29/2014 Patient seen in rounds with Dr. Cooper Shelley this morning. Family members present during rounds this morning. Updated on patient's condition/plan. Continue GEORGIE drain today Head CTA in a.m. Mobilize as tolerated PT/OT eval and treat NO ANTICOAGULATION; Continue SCDs when in bed. Does not need anticonvulsant Disp: ok to transfer out of SICU from neuro perspective. Discussed with Dr. Salazar, SICU Critical Care Pulmonary: No issues currently CV: Hypertension :: Continue to treat BP to keep SBP <150 with PRN labetolol GI: Diet as tolerated Renal / : No acute issues. Electrolyte abnormalities :: none Volume / Fluid Status: :: 1.2 Liter(s) up last 24 hours Extremities/Musculoskeletal: Wounds (SEE ABOVE) :: continue local wound care Infectious Disease: Antibiotic(s): ADRIANA in OR, continue today Endocrine: Medications: per endocrine consult Prophylaxis: Aspiration: :: HOB > 30 degrees Seizure: :: none per neurosurgery Musculoskeletal / Skin :: frequent turns :: mepilex where / when indicated --- Mechanical DVT: :: SCDs --- Chemical DVT: :: none at this time Diagnostic Tests: Personally Reviewed: :: Imaging studies, Lab results Disposition: Transfer to [facility] 10 Plan for the day ?? Add scheduled BB with hold parameters ?? D/C nicardipine ?? ADAT ?? Transfer to [place] [address] per Neurosurgery recommendations CORINA [email or web address] I have seen the patient in conjunction with Adi RENTERIA. I am in agreement with his assessments and plans unless other aguilar stated in ITALICS above. BRIEFLY: Overnight: No acute issues overnight Labs: Last Chem10 results: Lab Results Component Value Date/Time SODIUM 136 07/29/2014 4:10 AM K 4.8 07/29/2014 4:10 AM CHLORIDE 99 07/29/2014 4:10 AM CO2 27 07/29/2014 4:10 AM BUN 10 07/29/2014 4:10 AM CREATININE 0.71 07/29/2014 4:10 AM GLUCOSE 186* 07/29/2014 4:10 AM CA 9.3 07/29/2014 4:10 AM ANIONGAP 10 07/29/2014 4:10 AM Last CBC/no differential result Lab Results Component Value Date/Time WBC 7.7 07/29/2014 3:19 AM RBC 4.36* 07/29/2014 3:19 AM HGB 13.3* 07/29/2014 3:19 AM HCT 39.3* 07/29/2014 3:19 AM MCV 90.1 07/29/2014 3:19 AM MCH 30.5 07/29/2014 3:19 AM MCHC 33.8 07/29/2014 3:19 AM PLTS 173 07/29/2014 3:19 AM RDW 13.4 07/29/2014 3:19 AM Last INR INR (no units) Date Value 07/29/2014 1.2* 05/22/2010 3.0 Radiology: 07/29/[address]: 1. Thin subdural collection containing gas and blood products overlying the right frontal lobe as described. No significant mass effect. 2. High right parietal keegan hole with a subdural drain which extends approximately 1 cm intracranially. Physical Exam: Vitals: Temp (24hrs), Min:97.5 ??F (36.4 ??C), Max:99 ??F (37.2 ??C) Heart Rate (24hrs)Temp: 98.4 ??F (36.9 ??C)Pulse: 115BP: 119/78 mmHgResp: 18 General: WD, WN, Male, in guarded condition Neuro/HEENT Exam: :: NC / SEE BELOW ::Right Pupil: 3 mm and Normal; Left Pupil: 3 mm and Normal :: Motor Sensory: Paraplegic, BUE equal strength (Does complain of numbness in left hand / fingers) :: GCS: (Eyes) 4 + (Motor) 6 + (Voice) 5 = 15 ICP Monitoring :: none Drain(s): :: Harshad Drain HOB: :: > 30 degrees C Spines: :: no issues T Spines: :: no issues L Spines: :: no issues Pain/Sedation Medication(s): :: Scheduled Gabapentin :: Scheduled Lorazepam :: PRN APAP :: PRN Jasper :: PRN Dilaudid Sedation Holiday: :: not indicated Additional medications :: Scheduled Cymbalta Pulmonary: Ventilator Settings / Oxygen Supplementation: :: NC (2 Liters) Secretions: none --- Exam: :: Breath sounds clear to auscultation Vent Day: :: # not applicable Wean Trial :: not applicable Drains: :: none CV: Heart Rate (24hrs), Pulse Av.5 Min: 80 Max: 127 Systolic (24hrs), Av mmHg, Min:81 mmHg, Max:188 mmHg Diastolic (24hrs), Av mmHg, Min:51 mmHg, Max:100 mmHg --- Exam: :: Rhythm regular, Rate 96, no Murmur, no Gallops, no Rubs :: Pulses: II/IV bilaterally throughout External Grinder Tool: :: NSR with intermittent ST GI: Exam: :: Soft, non-tender, non-distended :: Ileostomy viable, functioning Tubes/Drains: :: none Nutrition: :: NPO Renal / : Exam: :: normal external genitalia, de la cruz in place Urine: :: 189 cc/hour Drain(s): :: Harshad Drain (head) with 60 cc/24 hours (SINCE INSERTED APPROXIMATELY 16 HOURS) :: ileostomy MIVF :: NS at 100 cc/hour Additional IVF :: IV Antibiotics Additional Fluids :: None Extremities/Musculoskeletal: Extremities warm, pulses palpable, and no edema present Compartments: Soft Skin Exam: No erythema of line sites no Skin Changes Associated with Devices/Pressure: no Wounds: :: Crani site: C/D/I Infectious Disease: Antibiotics :: ancef Cultures: 07/28/2014 :: MRSA ADMISSION SCREEN (-) = FINAL Endocrine: Medications: :: none Devices: Harshad drain (head) Nasal canula De Al Cruz catheter SCDs Daily Line Reassessment: # 1 - PIV; Indication: IV access; Plan: continue Prophylaxis: Aspiration: :: HOB > 30 degrees Seizure: :: none (confirm with NS) Withdrawal: :: none indicated C spines: :: none indicated T spines: :: none indicated L spines: :: none indicated --- Pulmonary: :: incentive spirometry / cough, deep breathing --- Hyperglycemia: :: none (CONFIRM WITH NS) --- GI: :: none indicated --- Electrolyte abnormalities: :: none indicated --- Musculoskeletal / Skin :: frequent turns :: mepilex where / when needed --- Mechanical DVT: :: SCDs --- Chemical DVT: :: none: HIGH RISK OF BLEEDING Plan for today 07/29/2014 Add scheduled beta gulshan with hold parameters DC nicardipine ADAT Transfer to [place] [address] per NS Douglas Miranda ShahramshantanuLYDIA SICU Staff Overall, this man is doing extremely well after drainage of a right subdural hemorrhage while on Coumadin. He has old, long-standing, paraplegia. Complains of headache today. Otherwise, GCS is 15. Doeshave mild left hand numbness but motor exam is normal. Hemoglobin is 13.3 with normal white blood count. Sodium is 136 with chloride 99, BUN 10 and creatinine 0.71. INR is 1.1. Will receive Neurontin, Ativan and nor call. Advance diet. Systolic blood pressure less than 150 mmHg. Cleared to go to the floor with Neurosurgery Staff. Seen and evaluated with Mr. Hays and agree with data gathered by this provider. Level III service provided and documented on 07/29/2014. Julien Salazar MD Melva Raymundo RN - 07/29/2014 12:46 PM CDT [facility] NeuroSurgery Craniotomy Progress Note 07/29/2014 Vitals Temp (24hrs), Min:97.5 ??F (36.4 ??C), Max:99 ??F (37.2 ??C) Systolic (24hrs), Av mmHg, Min:81 mmHg, Max:188 mmHg Mean Arterial Pressure (MAP) Av.3 MM HG Min: 57 MM HG Max: 97 MM HG Exam Awake, alert Slept poorly last noc Mild headache this a.m. No drift Speech clear, fluent GEORGIE with 60 cc old bloody drainage Drsg intact Afebrile Current Facility-Administered Medications Medication Dose Route Frequency ??? acetaminophen (aka TYLENOL) suppository 650 mg 650 mg Rectal Q4H PRN ??? acetaminophen (aka TYLENOL) tablet 325-650 mg 325-650 mg Oral Q4H PRN ??? atorvastatin (aka LIPITOR) tablet 40 mg 40 mg Oral 2000 ??? baclofen (aka LIORESAL) tablet 20 mg 20 mg Oral TID ??? bisacodyl (aka DULCOLAX) suppository 10 mg 10 mg Rectal DAILY PRN ??? dextrose (d50) injection 12.5-25 g 12.5-25 g IV Q15MIN PRN ??? docusate sodium (aka COLACE) capsule 100 mg 100 mg Oral BID ??? DULoxetine (aka CYMBALTA) delayed release capsule 80 mg 80 mg Oral Daily ??? gabapentin (aka NEURONTIN) capsule 400 mg 400 mg Oral TID ??? glucagon HCL (RDNA) (aka GLUCAGEN) injection 1 mg 1 mg IM ONCE PRN ??? glucose-ascorbic acid (aka YZO1VREBFTG) chewable tablet 4 Tab 4 Tab Oral Q15MIN PRN ??? HYDROcodone-acetaminophen (aka NORCO) 5-325 MG tablet TABS 1-2 Tab 1-2 Tab Oral Q4H PRN ??? HYDROmorphone (aka DILAUDID) injection 0.5-1 mg 0.5-1 mg IV Q1H PRN ??? insulin lispro (aka humALOG) injection vial 1-10 Units 1-10 Units SC PRN based on Blood Sugar ??? labetalol (aka NORMODYNE) injection 10-20 mg 10-20 mg IV Q4H PRN ??? LORazepam (aka ATIVAN) tablet 1 mg 1 mg Oral TID ??? magnesium hydroxide (aka MILK OF MAGNESIA) oral liquid 30 mL 30 mL Oral DAILY PRN ??? metoPROLOL tartrate (aka LOPRESSOR) tablet 25 mg 25 mg Oral BID ??? NaCl 0.9 % infusion 1,000 mL 1,000 mL IV Continuous ??? ondansetron (aka ZOFRAN) injection 4 mg 4 mg IV Q4H PRN ??? polyethylene glycol (aka MIRALAX) oral powder 1 Packet 17 g Oral Daily ??? sennosides-docusate sodium (aka SENNA-S,SENNA PLUS) 8.6-50 MG tablet 1 Tab 1 Tab Oral At Bedtime Imaging Had head CT on 07/29/14; reviewed by Dr. Shelley and reported to family 1. Thin subdural collection containing gas and blood products overlying the right frontal lobe as described. No significant mass effect. 2. High right parietal keegan hole with a subdural drain which extends approximately 1 cm intracranially. Labs Lab Results Component Value Date/Time SODIUM 136 07/29/2014 4:10 AM HGB 13.3* 07/29/2014 3:19 AM Assessment 69 yo man on chronic coumadin with acute on chronic SDH s/p keegan hole evac SDH 07/28/[address] Shelley. Wc bound due to impaired mobility S/p ependymoma resection and treatment; coumadin halfway use; hasIVC filter. Neurogenic bladder Plan Patient seen in rounds with Dr. Cooper Shelley this morning. Family members present during rounds this morning. Updated on patient's condition/plan. Continue GEORGIE drain today Head CTA in a.m. Mobilize as tolerated PT/OT eval and treat NO ANTICOAGULATION; Continue SCDs when in bed. Does not need anticonvulsant Disp: ok to transfer out of SICU from neuro perspective. Discussed with Dr. Salazar, SICU Critical Care I, Melva Raymundo RN, am serving as a scribe to document services personally performed by Dr. Oswald Shelley. All data has been reviewed by Dr. Oswald Shelley. Melva Raymundo R.N. Nurse Clinician Neurosurgery Pager [phone] --- End of Report --- Associated attestation - Cooper Shelley MD - 08/07/2014 11:27 AM CDT Agree with above note I have reviewed the patient's images and performed a pertinent exam. Cooper Shelley MD Neurosurgery Malika Maradiaga, VALERIE - 07/28/2014 6:59 PM CDT [facility] Plan of Care Note Assessment: Pain Plan: Pt will have tolerable relief of pain. Subjective: Pt complains My head hurts. Objective: Pt complains of headache, no medication orders at time. Shades drawn, ice packs to head. Pt reports increased comfort. Pt is alert and oriented. MD to floor to see pt, pt to OR for surgery. --- End of Report --- documented in this encounter Procedure Notes Cooper Shelley MD - 07/28/2014 8:48 PM CDT [facility] Brief Operative Progress Note Surgery Date: 07/28/2014 Primary Surgeon: Surgeon(s): Cooper Shelley MD Assistants:None Post-op Diagnosis: Subdural hematoma Procedure: Procedure(s) (LRB): CRANIOTOMY (Right) EBL: 100cc Specimens: Specimen ID Type Site Comments Sent To NONE Complications / Findings: SDH acute on chronic Cooper Shelley MD --- End of Report --- Cooper Shelley MD - 07/28/2014 12:00 AM CDT DATE OF SERVICE: 07/28/2014 DATE OF SURGERY: 07/28/2014 OPERATING SURGEON: Cooper Shelley MD MORTGAGE PROTECTION SALES SURGEON: None. PREOPERATIVE DIAGNOSES: 1. Right subdural hematoma. 2. Headache. 3. Cerebral edema. POSTOPERATIVE DIAGNOSES: 1. Right subdural hematoma. 2. Headache. 3. Cerebral edema. PROCEDURE: 1. Open right frontoparietal craniotomy. 2. Open right frontal evacuation of subdural hematoma. ANESTHESIA: General. POSITION: Supine. ESTIMATED BLOOD LOSS: 100 mL, including subdural hematoma. COMPLICATIONS: None. INDICATION: This is a 69-year-old gentleman who presented with approximately 8 days' worth of severeheadache. The patient is on Coumadin for deep venous thrombosis and came in with an INR of 1.1. We discussed the risks, benefits, and the patient and family ultimately agreed to surgery. SURGERY: The patient was brought to the operating room in the supine position. Any additional lines were placed by anesthesia prior to general endotracheal intubation. The patient was placed supine with the neck in mild flexion. He was shaved, prepped and draped in the usual sterile fashion. After preoperative antibiotics, we made a right-sided parietal partial coronal incision using a 10 blade afterlocal infiltration with 1 percent lidocaine with epinephrine. We placed self-retaining retractors and then performed a single bur hole. We then freed the dura using a [place] 3 and then used a craniotome to outline a small cookie-shaped craniotomy. We then opened the dura in a cruciate fashion with im mediate expulsion of subdural hematoma. There were both acute, subacute, and chronic components. Using a cotton jerrell, we were able to mildly depress the brain and extract more subdural hematoma from beyond the craniotomy edges. We placed Surgiflo and Surgicel to help tamponade any oozing that was notclearly coming from an identifiable vessel, and then closed the craniotomy with titanium mini platesand screws on the bone flap. We placed a 10 Harshad drain into the subdural space and secured it usingVicryl suture. We used 3-0 Vicryl to close the galeal layer followed by skin gabe. We cleansed and dried the wound with the application of skin gabe, bacitracin ointment, and a Flexinet cap. All c ounts were correct and there were no complications during this case. I was scrubbed and present for the entire procedure, performing all critical portions. MD ROSENDO Andersen:hailey Dictated: 07/29/2014 13:17:42 Transcribed: 07/29/2014 13:40:36 Job: [id number] Doc: [id number] cc: Quan Corbett PA-C, Referring Provider documented in this encounter Consult Notes Jessie Nieves MBBS - 07/31/2014 5:18 PM CDTAssociated Order(s): MEDICINE INPT CONSULT [facility] Medicine Consultation Note () Date of service: 07/31/2014 I was asked by Dr. Shelley to provide my opinion and/or advice in regards of management of HTN/Dyslipidemia. History of present illness: Patient is a 69 year old male with PMHx significant for paraplegia(complication of ependymoma)/Neurogenic bladder/Neuropathic pain/Dyslipidemia along withrhx of DVT who started experiencing severe headache and presented to OSH for evaluation. CT was performed which showed acute on chronic right sided subdural hematoma. He was transferred here for neurosurgical interventionand underwent evacuation of the hematoma. Patient has had episodes of self limiting weakness of leftside x 2 (once y'day and once today) and w/u negative. Currently feels comfortable. Denies any sx like CP/SOB. Past Medical History Diagnosis Date ??? 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 However resection was incomplete due [...] of lower extremities. ??? Osteoporosis time study observer wheelchair since 2006 ??? Leg fracture, left nontraumatic ??? Hypercholesteremia ??? Chronic constipation ??? Depression Past Surgical History Procedure Laterality Date ??? Appendectomy ??? Vasectomy* ??? Turp incl contrl postop bleed cmpl ??? 18372 total knee arthroplasty right ??? Ivc filter placement 1999 Family History Problem Relation Age of Onset ??? Cancer, Colon Mother ??? Cancer, Other Brother brother with throat cancer ??? Cancer, Breast Sister ??? Osteoporosis Mother no history of fractures Social History Occupational History ??? [employer] ??? [employer] ??? retired/disability Social History Main Topics ??? Smoking status: Never Smoker ??? Smokeless tobacco: Never Used ??? Alcohol Use: No ??? Drug Use: No ??? Sexual Activity: Partners: Female Current outpatient medications: No Facility-Administered Medications for the 07/28/14 encounter (Hospital Encounter).Outpatient Prescriptions Marked as Taking for the 07/28/14 encounter (Hospital Encounter): atorvastatin (LIPITOR) 40 MG tablet Take 1 Tab by mouth daily. Disp: Rfl: DULoxetine (CYMBALTA) 20 MG capsule Take 4 Caps by mouth daily. Disp: 360 Cap Rfl: 0 gabapentin (AKA NEURONTIN) 400 MG capsule Take [...] Tabs by mouth every 4 hours as needed. Disp: Rfl: LORazepam (AKA ATIVAN) 0.5 MG tablet Take 2 Tabs by mouth three times a day. Disp: Rfl: warfarin (COUMADIN) 5 MG tablet Take 5 mg by mouth daily. 7.5 mg Saturday- , 10 mg SaturdayBased on INR Disp: Rfl: Allergies: Oxycodone and Zaroxolyn Review of Systems: The remainder of the complete review of systems is negative. EXAMINATION BP 128/78 Pulse 79 Temp(Src) 97.7 ??F (36.5 ??C) (Oral) Resp 16 Ht 6' (1.829 m) Wt 114 kg (251 lb 5.2 oz) BMI 34.08 kg/m2 SpO2 99% Intake/Output Summary (Last 24 hours) at 07/31/14 1718 Last data filed at 07/31/14 1505 Gross per 24 hour Intake 0 ml Output 5100 ml Net -5100 ml General: Patient appears fairly comfortable and in no acute distress HEENT:Oral mucosa moist Neck:No jugular vein distension. Chest:B/L CTA with minimal basilar crepts Heart:Regular rate and rhythm. Abd:soft, has colostomy Neuro: AAO X 3; Paraplegia(baseline); UE strength appears equal and normal. LABS/DATA: Lab Results Component Value Date/Time WBC 11.0 07/30/2014 6:56 AM HGB 11.8* 07/30/2014 6:56 AM PLTS 177 07/30/2014 6:56 AM Lab Results Component Value Date/Time BUN 16 07/31/2014 8:01 AM CREATININE 0.65* 07/31/2014 8:01 AM Lab Results Component Value Date/Time SODIUM 132* 07/31/2014 8:01 AM K 4.3 07/31/2014 8:01 AM CO2 28 07/31/2014 8:01 AM CHLORIDE 94* 07/31/2014 8:01 AM GLUCOSE 158 07/31/2014 8:01 AM MG 1.9 08/07/2011 11:52 AM CA 9.5 07/31/2014 8:01 AM PHOS 3.0 08/07/2011 11:52 AM Lab Results Component Value Date/Time TROP <0.012 04/12/2010 10:59 AM TROP <0.012 04/12/2010 4:25 AM TROP <0.012 04/11/2010 10:30 PM Last 24 Hour Accucheck Glucose Results: Recent Labs 07/30/14 1750 07/30/14 2144 07/31/14 0800 07/31/14 1307 GLWB 118 217* 160 175 I reviewed the patient's medications I reviewed the patient's labs Assessment and Plan: 1. Acute on chronic SDH: s/p evacuation. Management per NSG team. 2. HTN: No previous known diagnosis. Current BP appears fairly controlled. -Started on low dose BB and continue on the same for now with holding parameters. 3. Hyponatremia: Mild and appears asymptomatic. Patient appears euvolemic. Monitor. If worsens,couldconsider further interventions. 4. Hyperglycemia: Likely steroid-induced: Per endocrinology. 5. Dyslipidemia: Continue Statin 6. Neuropathic pain: On cymbalta/Neurontin/Baclofen 7. Hx of recurrent DVT/Complex anticoagulation issues: Hematology consulted and f/u per recommendations. D/W family briefly about risks/benefits of being on A/C vs that of recurrent DVT and this being a tricky situation and await final recommendations from Hematology. Jessie Nieves MD Pager: [phone] Time spent was 60 minutes with >50% spent in co-ordination of care. Nighat Flores MD - 07/30/2014 1:11 PM CDTAssociated Order(s): HEMATOLOGY/ONCOLOGY INPT CONSULT Hematology Consultation Note () Date of service: 07/30/2014 I was asked by Dr. Shelley to provide my opinion and/or advice in regards of anticoagulation in the setting of subdural hemorrhage. History of present illness: Jeff Cullen is a 69 year old male on coumadin for 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 In 1999, patient had a resection of an ependymoma, that quickly regrew requiring multiple resections, as a complication of multiple s urgeries and the ependymoma, he is wheelchair bound. His first DVT was in 1999, for which he had an IVC filter inserted. In 2006, patient was having additional radiation, gamma knife therapy, and othercomplications related to his ependymoma including infections and swelling, and during that year had massive BLE clot burdens and was placed on coumadin. On additional imaging with US in 04/2010 it was noted that he had bilateral non-occlusive DVTs that were improved from 2006, and he was continued on coumadin. He has been stable on his coumadin since that time, however has had multiple problems with needing surgeries and procedures requiring reversal of coumadin and placement on Lovenox. 2 days ago, patient presented to outside hospital with a headache, CT head showed acute on chronic subdural hematoma, and he was transferred to [facility] for neurosurgery care. He is now s/p evacuation, and neurosurgery is asking for assistance regarding resuming anticoagulation, as they would prefer to avoid anti-coagulation for as long as possible. Currently patient is doing fairly well s/p surgery, however had just had a rapid response called forheadache and focal arm weakness. This had already begun resolving on interview. Past Medical History Diagnosis Date ??? 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 However resection was incomplete due [...] of lower extremities. ??? Osteoporosis time study observer wheelchair since 2006 ??? Leg fracture, left nontraumatic ??? Hypercholesteremia ??? Chronic constipation ??? Depression Past Surgical History Procedure Laterality Date ??? Appendectomy ??? Vasectomy* ??? Turp incl contrl postop bleed cmpl ??? 52144 total knee arthroplasty right ??? Ivc filter placement 1999 Family History Problem Relation Age of Onset ??? Cancer, Colon Mother ??? Cancer, Other Brother brother with throat cancer ??? Cancer, Breast Sister ??? Osteoporosis Mother no history of fractures Social History Occupational History ??? [employer] ??? [employer] ??? retired/disability Social History Main Topics ??? Smoking status: Never Smoker ??? Smokeless tobacco: Never Used ??? Alcohol Use: No ??? Drug Use: No ??? Sexual Activity: Partners: Female Current outpatient medications: No Facility-Administered Medications for the 07/28/14 encounter (Hospital Encounter).Outpatient Prescriptions Marked as Taking for the 07/28/14 encounter (Hospital Encounter): atorvastatin (LIPITOR) 40 MG tablet Take 1 Tab by mouth daily. Disp: Rfl: DULoxetine (CYMBALTA) 20 MG capsule Take 4 Caps by mouth daily. Disp: 360 Cap Rfl: 0 gabapentin (AKA NEURONTIN) 400 MG capsule Take [...] Tabs by mouth every 4 hours as needed. Disp: Rfl: LORazepam (AKA ATIVAN) 0.5 MG tablet Take 2 Tabs by mouth three times a day. Disp: Rfl: warfarin (COUMADIN) 5 MG tablet Take 5 mg by mouth daily. 7.5 mg Saturday- , 10 mg SaturdayBased on INR Disp: Rfl: Allergies: Oxycodone and Zaroxolyn Review of Systems: The remainder of the complete review of systems is negative. Physical Examination: Vital signs: BP 151/86 Pulse 95 Temp(Src) 98.1 ??F (36.7 ??C) (Oral) Resp 16 Ht 6' (1.829 m) Wt 251 lb 5.2 oz (114 kg) BMI 34.08 kg/m2 SpO2 96% Gen: awake, pleasant, in NAD HEENT: large wound present with gabe in place on head, sclerae clear and anicteric, MMM, OP clear Resp: breathing comfortably on RA, CTAB, no wheezes or rhonchi CV: RRR, no murmurs appreciated Abd: soft, obese, non-tender, colostomy bag present, no erythema Ext: warm, no edema, no evidence of chronic venous stasis, no cyanosis, no rashes Neuro: CN2-12 intact, arms with good strength and intact sensation, lower extremities with decreasedsensation and absent strength, spasticity present DATA: Labs: I have reviewed labs from this admission. Remarkable for Last CBC/no differential result Lab Results Component Value Date/Time WBC 11.0 07/30/2014 6:56 AM RBC 3.87* 07/30/2014 6:56 AM HGB 11.8* 07/30/2014 6:56 AM HCT 35.6* 07/30/2014 6:56 AM MCV 92.0 07/30/2014 6:56 AM MCH 30.5 07/30/2014 6:56 AM MCHC 33.1 07/30/2014 6:56 AM PLTS 177 07/30/2014 6:56 AM RDW 13.7 07/30/2014 6:56 AM LE Duplex: CONCLUSION: 1. Worsening of the DVT in the bilateral lower extremities. Large amount of nonocclusive thrombus in both legs as described above. Assessment and Plan: Jeff Cullen is a 69 year old male on coumadin for 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 # History of DVTs, on coumadin now s/p craniotomy: Though patient had one INR value around 4.2 several weeks ago, high concern that coumadin with goal of 2.5- 3 may be too high and that risks of intracranial bleeding clearly outweigh benefit of preventing a LE clot, given he has IVC filter in place already. However, his LE duplex showed worsening clot burden from 2009. We have ordered labs including PTT (which was slightly prolonged on admission), repeat PT/INR, thrombin time, and lupus anticoagulantworkup, to help tip us in either direction regarding halfway anti-coagulant use. Clearly in the short term, patient should not be anticoagulted, and much of this discussion can occur later. -PTT, PT/INR, thrombin time and lupus anticoagulant work up labs ordered -ct to hold coumadin per neurosurgery Patient seen and plan of care discussed with Dr. Salvador. Kierra Flores MD Internal Medicine, PGY-2 Associated attestation - Shin Salvador MD - 07/30/2014 9:17 PM CDT Heme Onc Staff I saw and examined the patient today. I agree with the findings and plan of care as documented in the note by Dr. Flores. 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 Hard to say if bleed began at time of supratherapeutic INR. Currently doing well after warfarin reversal. But, does have evidenceof bilateral lower ext DVT on recent US: Report indicates these are worse but does not indicate whatit was compared to Difficult recommendations: We will eval mildly prolonged INR and eval for antiphosholipid antibody; And US IVC filter to assess patency Ultimately, will have to make a clinical decision regarding appropriateness of restarting anticoagulation Will follow MD Toni Angeles, Braulio Dubon, CERTIFIED REAL ESTATE APPRAISER, HANDBAG FRAMES INSPECTOR - 07/29/2014 3:39 PM CDTAssociated Order(s): ENDOCRINE INPT CONSULT Endocrine Consult Date of Service: 07/29/2014 Reason for Consult: postop hyperglycemia / DM II, conrolled Surgical Procedure: status post craniotomy s/p SDH HPI: S: The patient is a 69 year old male who I am asked to consult by Dr. Shelley per protocol for abnormalglucose control. The 'Perioperative Glucose Management Protocol for Adults' was implemented in the post op period. Records reviewed, Past history, social history, and family history reviewed. Pt has well controlled DM II No oral antiglycemics Diet: ADAT D5 gtt: no BGs nicely controlled Review of Systems Feeling okay Patient Active Problem List Diagnosis ??? Ependymoma ??? Fever ??? Probable Bacterial Meningitis ??? DVT (Deep Venous Thrombosis) ??? Neurogenic Bladder ??? HTN (Hypertension) ??? CAREPLAN: BACLOFEN ??? Osteoporosis ??? Paraplegia ??? Hyperparathyroidism ??? Vitamin D deficiency ??? Gait abnormality ??? Back pain Past Medical History Diagnosis Date ??? 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 However resection was incomplete due [...] of lower extremities. ??? Osteoporosis time study observer wheelchair since 2006 ??? Leg fracture, left nontraumatic ??? Hypercholesteremia ??? Chronic constipation ??? Depression Past Surgical History Procedure Laterality Date ??? Appendectomy ??? Vasectomy* ??? Turp incl contrl postop bleed cmpl ??? 60019 total knee arthroplasty right ??? Ivc filter placement 1999 Family History Problem Relation Age of Onset ??? Cancer, Colon Mother ??? Cancer, Other Brother brother with throat cancer ??? Cancer, Breast Sister ??? Osteoporosis Mother no history of fractures OBJECTIVE: Blood pressure 135/72, pulse 117, temperature 98.7 ??F (37.1 ??C), temperature source Oral, resp. rate 24, height 6' (1.829 m), weight 114 kg (251 lb 5.2 oz), SpO2 97 %. The patient appears in no apparent distress, alert and oriented times 3. Resp: chest clear anteriorly CV: S1, S2 normal, no murmur, no gallop, rate regular. Abdomen: deferred. Eyes: PERRLA, EOMI Neck: no lymphadenopathy Examination of the feet: reveals normal DP pulses. Skin: Turgor good, no acanthosis, no excessive dryness or diaphoresis Gait: deferred Affect: appropriate Visual Effects Artist Strenth: good b/l Lab/test results discussed with patient. Last 24 Hour Accucheck Glucose Results: Recent Labs 07/28/14 1842 07/28/14 2109 07/28/14 2221 07/29/14 0819 07/29/14 1157 GLWB 129 122 133 143 130 Last 3 Creatinine Results CREATININE (mg/dl) Date Value 07/29/2014 0.71 07/28/2014 0.71 08/07/2011 0.88 HGB A1C (%) Date Value 07/29/2014 6.4* No results found for this basename: ldl No results found for this basename: umacr TSH, WITH REFLEX (uIU/ml) Date Value 04/13/2010 6.723* ASSESSMENT/PLAN: DM II, controlled PLAN: Lantus none Continue Humalog sliding scale as needed FSG QAC and HS Tentative Discharge Recommendations All insulin to be discontinued upon discharge. Call Endocrine with any questions Will continue to evaluate insulin needs Thank You for the opportunity to see Jeff Muñoz CNP Endocrinology Pager [phone] Oscar Clinton MD - 07/28/2014 9:09 PM CDT [facility] SICU Critical Care Acceptance Note Date: 07/28/2014 Date of service: 07/28/2014 Diagnosis: 1. SDH (subdural hematoma) Cooper Shelley MD 69 yr, male Post-Op Day: #0, ICU Day: #1 S/P 07/28/14 - R craniotomy HPI 69M on coumadin for DVT here with severe headaches x 24 hours. He arrives to the SICU after he was found to have an acute on chronic R subdural hematoma, had a R crani and drain placement. No particular history of trauma per the patient. Complains of mild nausea, but otherwise has no complaints. Surgery was uncomplicated, minimal EBL. Patient arrives to the SICU extubated. He has absolutely no complaints at this time. Says that headache has completely resolved, denies nausea. A complete ROS was performed and was negative other than mentioned in the HPI. Allergies Allergies Allergen Reactions ??? Oxycodone Other, see comments Delirium ??? 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 Marital Status: Spouse Name: N/A Number of Children: 2 ??? Years of Education: N/A Occupational History ??? [employer] ??? [employer] ??? retired/disability Social History Main Topics ??? Smoking status: Never Smoker ??? Smokeless tobacco: Never Used ??? Alcohol Use: No ??? Drug Use: No ??? Sexual Activity: Partners: Female Other Topics Concern ??? Not on file Social History Narrative Wheelchair bound. Able to transfer from bed to wheelchair with assist of 1 at baseline. Lives with his in [place]. Vitals Filed Vitals: 07/28/14 1611 07/28/14 1842 BP: 159/77 182/96 Pulse: 87 81 Temp: 97.5 ??F (36.4 ??C) 97.5 ??F (36.4 ??C) TempSrc: Oral Oral Resp: 18 15 Height: 6' (1.829 m) Weight: 113.1 kg (249 lb 5.4 oz) SpO2: 97% 99% Physical Exam Neuro: Right Pupil: 3 mm and Normal; Left Pupil: 3 mm and Normal Motor Sensory - full strength bilateral upper extremities - paralysis bilateral lower extremities GCS: (Eyes) 4 + (Motor) 6 + (Voice) 5 = 15 HOB: [address]: Scheduled for tomorrow AM head bandaged, GEORGIE drain from R crani site Pulmonary: Exam: Breath sounds clear to auscultation CV: Exam: Regular rate and rhythm without murmur GI: Exam: Soft, non-tender, mildly distended Extremities: Extremities warm, pulses palpable, and no edema present Devices: GEORGIE drain R crani site Labs Pre-op Component Value Date/Time WBC 7.0 07/28/2014 5:58 PM RBC 4.27* 07/28/2014 5:58 PM HGB 13.0* 07/28/2014 5:58 PM HCT 38.6* 07/28/2014 5:58 PM MCV 90.4 07/28/2014 5:58 PM MCH 30.4 07/28/2014 5:58 PM MCHC 33.7 07/28/2014 5:58 PM PLTS 173 07/28/2014 5:58 PM RDW 13.3 07/28/2014 5:58 PM Component Value Date/Time SODIUM 134* 07/28/2014 5:58 PM K 4.6 07/28/2014 5:58 PM CHLORIDE 96 07/28/2014 5:58 PM CO2 27 07/28/2014 5:58 PM BUN 12 07/28/2014 5:58 PM CREATININE 0.71 07/28/2014 5:58 PM GLUCOSE 135 07/28/2014 5:58 PM CA 9.6 07/28/2014 5:58 PM ANIONGAP 11 07/28/2014 5:58 PM MG 1.9 08/07/2011 11:52 AM PHOS 3.0 08/07/2011 11:52 AM INR/PROTIME Result Value Range PROTIME 15.3 (*) 12.0 - 14.5 sec INR 1.2 (*) 0.9 - 1.1 Narrative: Performed at [facility], [address] [place] [address] APTT (ACTIVATED PARTIAL THROMBOPLASTIN TIME Result Value Range PTT 51.2 (*) 24.0 - 37.0 sec Narrative: Performed at [facility], [address] [place] [address] ABO RH & ANTIBODY SCREEN (TYPE & SCREEN) Result Value Range CROSSMATCH EXPIRES 07/31/2014 ABO/RH(D) A NEGATIVE ANTIBODY SCREEN NEGATIVE Narrative: Performed at [facility], [address] [place] [address] head done at OSH - not in our system CT head pending for tomorrow AM Assessment/Plan of Care This is a 69 yr year old male here s/p R crani for acute on chronic subdural hematomas. Neuro: Assessment/Plan: Subdural hematoma :: thought to be acute on chronic, atraumatic :: was complaining of severe headaches :: s/p R crani and subdural drain placement :: q2 neuro checks :: plan per NSG :::: NO keppra or decadron :::: INR<1.5 :::: SBP <150 (nicardipine drip) :::: HCT in AM Pain :: dilaudid PRN :: Jasper PRN :: APAP prn Nausea :: zofran PRN Lower extremity spasticity :: continue home gabapentin Depression and anxiety :: restart home cymbalta :: continue home ativan TID Pulmonary: Resp Rate (24hrs), Resp Av.5 Min: 15 Max: 18 O2 Sats (24hrs), SpO2 Av % Min: 97 % Max: 99 % Assessment/Plan: :: Supplemental oxygen as needed CV: Heart Rate (24hrs), Pulse Av Min: 81 Max: 87 Systolic (24hrs), Av mmHg, Min:159 mmHg, Max:188 mmHg Diastolic (24hrs), Av mmHg, Min:77 mmHg, Max:100 mmHg Assessment/Plan: HTN :: SBP goal <150 per NSG :: nicardipine gtt per NSG HLD :: restart home atorvastatin GI: Tubes/Drains: Drains subdural Nutrition: NPO - will likely be able to advance diet tomorrow assuming scans are stable Assessment/Plan: Constipation :: bowel regimen (colace, miralax, senna, dulcolax PRN) Renal Wt Readings from Last 2 Encounters: 07/28/14 113.1 kg (249 lb 5.4 oz) 07/28/14 113.1 kg (249 lb 5.4 oz) Intake/Output Summary (Last 24 hours) at 07/28/14 2110 Last data filed at 07/28/14 2100 Gross per 24 hour Intake 1200 ml Output 200 ml Net 1000 ml Assessment/Plan: Neurogenic bladder :: 12/13 ependymoma, chronic :: continue de la cruz Fluid status :: maintenance NS@100/hr :: BMP in AM :: electrolyte replacement protocol as needed Extremities Assessment/Plan: No acute issues. Heme Lab Results Component Value Date/Time HGB 13.0* 07/28/2014 5:58 PM HCT 38.6* 07/28/2014 5:58 PM RBC 4.27* 07/28/2014 5:58 PM PLTS 173 07/28/2014 5:58 PM PROTIME 15.3* 07/28/2014 5:58 PM INR 1.2* 07/28/2014 5:58 PM INR 3.0 05/22/2010 12:05 PM PTT 51.2* 07/28/2014 5:58 PM Assessment/Plan: Hx of DVT :: hold home coumadin :: INR goal <1.5 per NSG :: INR in AM :: restart when able ID Temp (24hrs), Min:97.5 ??F (36.4 ??C), Max:97.5 ??F (36.4 ??C) Lab Results Component Value Date/Time WBC 7.0 07/28/2014 5:58 PM ESR 87* 05/22/2010 12:05 PM CRP 5.7* 05/22/2010 12:05 PM Assessment/Plan: No acute issues. Perioperative cefazolin per NSG - q8 x 2 doses Endocrine Sliding scale - ENDOCRINE managing Lab Results Component Value Date/Time GLUCOSE 135 07/28/2014 5:58 PM GLWB 129 07/28/2014 6:42 PM CRYSTAL 15 04/13/2010 3:55 PM TSH 6.723* 04/13/2010 3:55 PM Assessment/Plan: No acute issues. q4 glucose checks. Prophylaxis Skin Exam: No rashes or lesions, No erythema of line sites Skin Changes Associated with Devices/Pressure: No Daily Line Reassessment: PIVs Assessment/Plan: GI Prophylaxis: None. Mechanical Prophylaxis: SCD Chemical DVT Prophylaxis: None: physician preference NSG Diagnostic Tests Personally Reviewed: Imaging studies, Lab results Disposition SICU Oscar Clinton M.D. PGY-3, Emergency Department [phone] (SICU resident phone) Associated attestation - Shantanu Mejia MD - 07/28/2014 11:03 PM CDT Surgery staff DOS 07/28/2014 I saw and examined this patient and reviewed their clinical data. I agree with the findings and planof care as documented in the resident's note. Shantanu Mejia MD Trauma/Acute Care Surgery 07/28/2014, 11:01 PM documented in this encounter OR Notes H&P - Molly Diaz PA-C - 07/28/2014 5:46 PM CDT [facility] History and Physical () Admit Date/Time: 07/28/2014 4:05 PM Attending: Cooper Shelley MD Chief Complaint: headaches History of present illness: Jeff Cullen is a 69 year old male on coumadin for hx of DVT who startedexperiencing severe headache in the past 24 hours. Denies any history of trauma, falls, etc. Presented to OSH for evaluation. CT was performed which showed acute on chronic right sided subdural hematoma. He was transferred here for neurosurgical intervention. Also experiencing nausea. Pain medicationsnot helping headaches. Rates MORAN as 06/20. Allergies: Oxycodone and Zaroxolyn Past Medical History Diagnosis Date ??? Ependymoma nos 2000 S/p resection by Dr. Glasgow at [place] in 05/2000. However resection was incomplete due [...] of lower extremities. ??? Osteoporosis time study observer wheelchair since 2006 ??? Leg fracture, left nontraumatic ??? Hypercholesteremia ??? Chronic constipation ??? Depression Past Surgical History Procedure Laterality Date ??? Appendectomy ??? Vasectomy* ??? Turp incl contrl postop bleed cmpl ??? 19052 total knee arthroplasty right ??? Ivc filter placement 1999 History Social History ??? Marital Status: Spouse Name: N/A Number of Children: 2 ??? Years of Education: N/A Occupational History ??? [employer] ??? [employer] ??? retired/disability Social History Main Topics ??? Smoking status: Never Smoker ??? Smokeless tobacco: Never Used ??? Alcohol Use: No ??? Drug Use: No ??? Sexual Activity: Partners: Female Other Topics Concern ??? Not on file Social History Narrative Wheelchair bound. Able to transfer from bed to wheelchair with assist of 1 at baseline. Lives with his in [place]. Family History Problem Relation Age of Onset ??? Cancer, Colon Mother ??? Cancer, Other Brother brother with throat cancer ??? Cancer, Breast Sister ??? Osteoporosis Mother no history of fractures Review of Systems: Review of Systems See HPI for pertinent positives Physical Examination: General: Awake, alert, NAD Vital Signs: BP 159/77 Pulse 87 Temp(Src) 97.5 ??F (36.4 ??C) (Oral) Resp 18 SpO2 97% HEENT: Head normocephalic, atraumatic Neck: No masses noted Heart: RRR Lungs: Breathing comfortably on room air Abdomen: No distention noted Extremities: BRYSON Neurological: Non focal. CN II-XII grossly intact. No drift Impression: 69 year old male on coumadin, INR 1.1, with acute on chronic right subdural hematoma Plan: Patient seen and examined with Dr. Shelley Family at bedside, updated Plan for OR tonight for right craniotomy and evacuation of hematoma NPO Stat labs ordered To SICU post op HCT in AM Post op SBP <150 No anticoagulation, SCDs only Patient was seen in collaboration with Dr. Shelley, and we discussed the plan in full. We reviewed the current imaging with the patient using anatomical models to explain the pathophysiology and surgical and non-surgical treatment options for Jeff Cullen's condition. Total time spent was 50 minutes >50% of which was spent counseling and coordinating care Molly Diaz PA-C, 07/28/2014, 5:50 PM Neurosurgery [phone] Report Completed by: Molly Diaz PA-C --- End of Report --- documented in this encounter Plan of Treatment Scheduled Referrals Name Type Priority Associated Diagnoses Order S chedule Follow up with your Referral Routine Ordered: 08/02/2014 primary care physician Neurosurgery (Non-Spine) Referral Routine Ord ered: 08/02/2014 Referral - Adults Other Referral Referral Routine Ordered: 07/13 documented as of this encounter Procedures Procedure Name Priority Date/Time Associated Comments Diagnosis GLUCOSE, WHOLE BLOOD Routine 08/02/2014 1:00 Resu lts for this POCT PM CDT procedure are i n the results section. GLUCOSE, WHOLE BLOOD Routine 08/02/2014 8:30 Resu lts for this POCT AM CDT procedure are i n the results section. BASIC METABOLIC PANEL Routine 08/02/2014 6:09 Res ults for this AM CDT procedure are i n the results section. GLUCOSE, WHOLE BLOOD Routine 08/01/2014 9:52 Resu lts for this POCT PM CDT procedure are i n the results section. SODIUM Specified Time 08/01/2014 5:44 Results fo r this PM CDT procedure are i n the results section. GLUCOSE, WHOLE BLOOD Routine 08/01/2014 5:20 Resu lts for this POCT PM CDT procedure are i n the results section. SODIUM, URINE RANDOM Routine 08/01/2014 3:03 Resu lts for this PM CDT procedure are i n the results section. OSMOLALITY, URINE Routine 08/01/2014 3:03 Results for this PM CDT procedure are i n the results section. GLUCOSE, WHOLE BLOOD Routine 08/01/2014 12:41 Res ults for this POCT PM CDT procedure are i n the results section. GLUCOSE, WHOLE BLOOD Routine 08/01/2014 11:53 Res ults for this POCT AM CDT procedure are i n the results section. GLUCOSE, WHOLE BLOOD Routine 08/01/2014 7:58 Resu lts for this POCT AM CDT procedure are i n the results section. BASIC METABOLIC PANEL Routine 08/01/2014 6:24 Res ults for this AM CDT procedure are i n the results section. GLUCOSE, WHOLE BLOOD Routine 07/31/2014 11:01 Res ults for this POCT PM CDT procedure are i n the results section. GLUCOSE, WHOLE BLOOD Routine 07/31/2014 8:58 Resu lts for this POCT PM CDT procedure are i n the results section. GLUCOSE, WHOLE BLOOD Routine 07/31/2014 5:45 Resu lts for this POCT PM CDT procedure are i n the results section. GLUCOSE, WHOLE BLOOD Routine 07/31/2014 1:07 Resu lts for this POCT PM CDT procedure are i n the results section. CT HEAD WO IV CONT Routine 07/31/2014 8:24 Result s for this AM CDT procedure are i n the results section. BASIC METABOLIC PANEL Routine 07/31/2014 8:01 Res ults for this AM CDT procedure are i n the results section. CARDIOLIPIN AB, IGG & Routine 07/31/2014 8:01 Res ults for this IGM AM CDT procedure are i n the results section. GLUCOSE, WHOLE BLOOD Routine 07/31/2014 8:00 Resu lts for this POCT AM CDT procedure are i n the results section. GLUCOSE, WHOLE BLOOD Routine 07/30/2014 9:44 Resu lts for this POCT PM CDT procedure are i n the results section. LUPUS ANTICOAGULANT Routine 07/30/2014 6:32 Resul ts for this WORKUP PM CDT procedure are i n the results section. GLUCOSE, WHOLE BLOOD Routine 07/30/2014 5:50 Resu lts for this POCT PM CDT procedure are i n the results section. US LOWER EXTREMITY Routine 07/30/2014 3:46 Result s for this BILAT VENOUS DOPPLER PM CDT procedu re are in the results section. CT HEAD WO IV CONT STAT 07/30/2014 2:41 Result s for this PM CDT procedure are i n the results section. GLUCOSE, WHOLE BLOOD Routine 07/30/2014 12:44 Res ults for this POCT PM CDT procedure are i n the results section. GLUCOSE, WHOLE BLOOD Routine 07/30/2014 8:02 Resu lts for this POCT AM CDT procedure are i n the results section. BASIC METABOLIC PANEL Routine 07/30/2014 6:56 Res ults for this AM CDT procedure are i n the results section. COMPLETE BLOOD Routine 07/30/2014 6:56 Results fo r this COUNT-NO DIFF AM CDT procedure are in the results section. INR/PROTIME Routine 07/30/2014 6:56 Results for this AM CDT procedure are i n the results section. CT ANGIO HEAD W/WO IV Routine 07/30/2014 6:27 Res ults for this CONT AM CDT procedure are i n the results section. GLUCOSE, WHOLE BLOOD Routine 07/29/2014 4:52 Resu lts for this POCT PM CDT procedure are i n the results section. GLUCOSE, WHOLE BLOOD Routine 07/29/2014 11:57 Res ults for this POCT AM CDT procedure are i n the results section. GLUCOSE, WHOLE BLOOD Routine 07/29/2014 8:19 Resu lts for this POCT AM CDT procedure are i n the results section. CT HEAD WO IV CONT Routine 07/29/2014 4:30 Result s for this AM CDT procedure are i n the results section. BASIC METABOLIC PANEL STAT 07/29/2014 4:10 Res ults for this AM CDT procedure are i n the results section. ADD ON LAB Routine 07/29/2014 3:19 Results for this ORDERS(SPECIMEN IN AM CDT procedure are in LAB) the results section. COMPLETE BLOOD Routine 07/29/2014 3:19 Results fo r this COUNT-NO DIFF AM CDT procedure are in the results section. HGB A1C Routine 07/29/2014 3:19 Results for this AM CDT procedure are i n the results section. INR/PROTIME Routine 07/29/2014 3:19 Results for this AM CDT procedure are i n the results section. MRSA ADMIT SCREEN Routine 07/28/2014 10:30 Result s for this PM CDT procedure are i n the results section. GLUCOSE, WHOLE BLOOD Routine 07/28/2014 10:21 Res ults for this POCT PM CDT procedure are i n the results section. GLUCOSE, WHOLE BLOOD Routine 07/28/2014 9:09 Resu lts for this POCT PM CDT procedure are i n the results section. BB HOLD TUBE ([facility] Routine 07/28/2014 7:40 Res ults for this ONLY) PM CDT procedure are i n the results section. BB HOLD TUBE ([facility] Routine 07/28/2014 7:35 Res ults for this ONLY) PM CDT procedure are i n the results section. CRANIOTOMY Inpatient 07/28/2014 7:15 Subdural hematoma PM CDT GLUCOSE, WHOLE BLOOD Routine 07/28/2014 6:42 Resu lts for this POCT PM CDT procedure are i n the results section. ABO RH & ANTIBODY STAT 07/28/2014 5:58 Results for this SCREEN (TYPE & PM CDT procedure are in SCREEN) the results section. BASIC METABOLIC PANEL STAT 07/28/2014 5:58 Res ults for this PM CDT procedure are i n the results section. APTT (ACTIVATED STAT 07/28/2014 5:58 Results f or this PARTIAL PM CDT procedure are i n THROMBOPLASTIN TIME the resu lts section. COMPLETE BLOOD STAT 07/28/2014 5:58 Results fo r this COUNT-NO DIFF PM CDT procedure are in the results section. INR/PROTIME STAT 07/28/2014 5:58 Results for this PM CDT procedure are i n the results section. EKG IP 07/28/2014 12:00 Results for this AM CDT procedure are i n the results section. EKG IP 07/28/2014 12:00 Results for this AM CDT procedure are i n the results section. documented in this encounter Results CT HEAD (ADULT) (09/17/2014 1:23 PM PUNCH OPERATOR) Anatomical Region Laterality Modality Head Computed Tomography Specimen (Source) Anatomical Collection Method Collection Time Re ceived Time Location / / Volume Laterality 09/17/2014 1:23 PM PUNCH OPERATOR Narrative 09/17/2014 6:02 PM PUNCH OPERATOR HEAD CT WITHOUT IV CONTRAST 09/17/2014 1:23 PM INDICATION: Subdural hematoma. TECHNIQUE: Head CT without IV contrast. COMPARISON: Head CT 08/26/2014 FINDINGS: Status post right parietal aircraft instrument mechanic niotomy. No residual or recurrent subdural hematoma. [...] 08/26/2014 FINDINGS: Status post right parietal aircraft instrument mechanic niotomy. No residual or recurrent subdural hematoma. No midline shift. Nor mal intra-axial contents. Grossly normal orbits. No paranasal sinus or mas toid inflammation of significance. CONCLUSION: 1. Resolved subdural hematoma. 2. Normal intra-axial contents. Molly Diaz PA-C RAD CT GLUCOSE, WHOLE BLOOD POC (08/02/2014 1:00 PM CDT) athologist Signature Glucose, Whole 158 70 - 180 [facility] Blood mg/dl [facility] Comment: Point of Care Testing RN Notified Specimen Anatomical Collection Method Collection Time Receive d Time (Source) Location / / Volume Laterality 08/02/2014 1:00 PM 4 1:05 CDT PM CDT Cooper Shelley MD LAB_1 Performing Organization Address City/[facility] Code Phon e Number [address] [address] GLUCOSE, WHOLE BLOOD POC (08/02/2014 8:30 AM CDT) athologist Signature Glucose, Whole 143 70 - 180 [facility] Blood mg/dl [facility] Comment: Point of Care Testing RN Notified Specimen Anatomical Collection Method Collection Time Receive d Time (Source) Location / / Volume Laterality 08/02/2014 8:30 AM 4 8:34 CDT AM CDT Cooper Shelley MD LAB_1 Performing Organization Address City/State/[facility] Phon e Number [address] [address] (ABNORMAL) BASIC METABOLIC PANEL (08/02/2014 6:09 AM CDT) Analysis Performed At Patho logist Time Signature Sodium 132 (L) 135 - 145 [facility] mmol/L [facility] Potassium 4.2 3.5 - 5.3 [facility] mmol/L [facility] Chloride 97 95 - 106 [facility] mmol/L [facility] CO2 28 22 - 30 [facility] mmol/L [facility] Anion Gap 7 7 - 16 [facility] (calc.) mmol/L [facility] Glucose 145 70 - 180 [facility] mg/dl [facility] Calcium 8.9 8.4 - 10.2 [facility] mg/dl [facility] BUN 21 (H) 7 - 20 [facility] mg/dl [facility] Creatinine 0.59 (L) 0.66 - [facility] 1.25 mg/dl [facility] GFR, Estimated >60 >60 [facility] ml/min/1.7 [facility] 3m2 GFR, Est., If >60 >60 [facility] Black ml/min/1.7 [facility] 3m2 Specimen Anatomical Collection Method Collection Time Receive d Time (Source) Location / / Volume Laterality 08/02/2014 6:09 AM 4 6:10 CDT AM CDT Narrative [facility] - 08/02/2014 6:53 AM CD T Performed at [facility] , [address] [place] [id number] Jessie ASKEW LAB_1 Performing Organization Address [facility] Phon e Number [address] [address] (ABNORMAL) GLUCOSE, WHOLE BLOOD POC (08/01/2014 9:52 PM CDT) P athologist Signature Glucose, Whole 224 (H) 70 - 180 [facility] Blood mg/dl [facility] Comment: Point of Care Testing RN Notified Specimen Anatomical Collection Method Collection Time Receive d Time (Source) Location / / Volume Laterality 08/01/2014 9:52 PM 4 9:56 CDT PM CDT Cooper Shelley MD LAB_1 Performing Organization Address City/State/ZIP Code Phon e Number [address] [address] (ABNORMAL) SODIUM (08/01/2014 5:44 PM CDT) athologist Signature Sodium 131 (L) 135 - 145 [facility] mmol/L [facility] Specimen Anatomical Collection Method Collection Time Receive d Time (Source) Location / / Volume Laterality 08/01/2014 5:44 PM 4 5:45 CDT PM CDT [facility] - 08/01/2014 5:57 PM CD T Performed at [facility] , [address] [place] [address] Jessie ASKEW LAB_1 Performing Organization Address City/State/ZIP Code Phon e Number [address] [address] (ABNORMAL) GLUCOSE, WHOLE BLOOD POC (08/01/2014 5:20 PM CDT) athologist Signature Glucose, Whole 182 (H) 70 - 180 [facility] Blood mg/dl [facility] Comment: Point of Care Testing RN Notified Specimen Anatomical Collection Method Collection Time Receive d Time (Source) Location / / Volume Laterality 08/01/2014 5:20 PM 4 5:25 CDT PM CDT Cooper Shelley MD LAB_1 Performing Organization Address City/State/ZIP [facility] Phon e Number [phone] [address] OSMOLALITY, URINE (08/01/2014 3:03 PM CDT) athologist Signature Osmolality, 164 [facility] Urine HOSPITAL Specimen Anatomical Collection Method Collection Time Receive d Time (Source) Location / / Volume Laterality Urine specimen 08/01/2014 3:03 PM 014 3:10 (specimen) CDT PM CDT [facility] - 08/01/2014 3:54 PM CD T Performed at [facility] , [address] [place] [address] Cooper Shelley MD LAB_1 Performing Organization Address City/[facility]/ZIP [facility] Phon e Number [address] [address] SODIUM, URINE RANDOM (08/01/2014 3:03 PM CDT) athologist Signature Sodium, Urine 13 mmol/L [facility] Specimen Anatomical Collection Method Collection Time Receive d Time (Source) Location / / Volume Laterality Urine specimen 08/01/2014 3:03 PM 014 3:10 (specimen) CDT PM CDT [facility] - 08/01/2014 3:22 PM CD T Performed at [facility] , [address] [place] [address] Cooper Shelley MD LAB_1 Performing Organization Address [facility] Phon e Number [address] [address] (ABNORMAL) GLUCOSE, WHOLE BLOOD POC (08/01/2014 12:41 PM CDT) athologist Signature Glucose, Whole 274 (H) 70 - 180 [facility] Blood mg/dl [facility] Comment: Point of Care Testing RN Notified Specimen Anatomical Collection Method Collection Time Receive d Time (Source) Location / / Volume Laterality 08/01/2014 12:41 08/01/2014 PM CDT 12:43 PM CDT Cooper Shelley MD LAB_1 Performing Organization Address City/[facility]/ZIP [facility] Phon e Number [address] [address] (ABNORMAL) GLUCOSE, WHOLE BLOOD POC (08/01/2014 11:53 AM CDT) athologist Signature Glucose, Whole 280 (H) 70 - 180 [facility] Blood mg/dl [facility] Comment: Point of Care Testing RN Notified Specimen Anatomical Collection Method Collection Time Receive d Time (Source) Location / / Volume Laterality 08/01/2014 11:53 08/01/2014 AM CDT 12:04 PM CDT Cooper Shelley MD LAB_1 Performing Organization Address City/[facility]/ZIP [facility] Phon e Number [address] [address] GLUCOSE, WHOLE BLOOD POC (08/01/2014 7:58 AM CDT) P athologist Signature Glucose, Whole 148 70 - 180 [facility] Blood mg/dl [facility] Comment: Point of Care Testing RN Notified Specimen Anatomical Collection Method Collection Time Receive d Time (Source) Location / / Volume Laterality 08/01/2014 7:58 AM 4 8:01 CDT AM CDT Cooper Shelley MD LAB_1 Performing Organization Address [facility] Phon e Number [address] [address] (ABNORMAL) BASIC METABOLIC PANEL (08/01/2014 6:24 AM CDT) Analysis Performed At Patho logist Time Signature Sodium 128 (L) 135 - 145 [facility] mmol/L [facility] Potassium 4.3 3.5 - 5.3 [facility] mmol/L [facility] Chloride 95 95 - 106 [facility] mmol/L [facility] CO2 28 22 - 30 [facility] mmol/L [facility] Anion Gap 5 (L) 7 - 16 [facility] (calc.) mmol/L [facility] Glucose 151 70 - 180 [facility] mg/dl [facility] Calcium 9.2 8.4 - 10.2 [facility] mg/dl [facility] BUN 19 7 - 20 [facility] mg/dl [facility] Creatinine 0.60 (L) 0.66 - [facility] 1.25 mg/dl [facility] GFR, Estimated >60 >60 [facility] ml/min/1.7 [facility] 3m2 GFR, Est., If >60 >60 [facility] Black ml/min/1.7 [facility] 3m2 Specimen Anatomical Collection Method Collection Time Receive d Time (Source) Location / / Volume Laterality 08/01/2014 6:24 AM 4 6:25 CDT AM CDT Narrative [facility] - 08/01/2014 7:12 AM CD T Performed at [facility] , [address] [place] [address] Cooper Shelley MD LAB_1 Performing Organization Address City/[facility]/ZIP [facility] Phon e Number [phone] [address] (ABNORMAL) GLUCOSE, WHOLE BLOOD POC (07/31/2014 11:01 PM CDT) P athologist Signature Glucose, Whole 220 (H) 70 - 180 [facility] Blood mg/dl [facility] Comment: Point of Care Testing RN Notified Specimen Anatomical Collection Method Collection Time Receive d Time (Source) Location / / Volume Laterality 07/31/2014 11:01 07/31/2014 PM CDT 11:04 PM CDT Cooper Shelley MD LAB_1 Performing Organization Address City/State/ZIP Code Phon e Number [address] [address] (ABNORMAL) GLUCOSE, WHOLE BLOOD POC (07/31/2014 8:58 PM CDT) P athologist Signature Glucose, Whole 201 (H) 70 - 180 [facility] Blood mg/dl [facility] Comment: Point of Care Testing RN Notified Specimen Anatomical Collection Method Collection Time Receive d Time (Source) Location / / Volume Laterality 07/31/2014 8:58 PM 4 9:23 CDT PM CDT Cooper Shelley MD LAB_1 Performing Organization Address City/State/ZIP Code Phon e Number [address] [address] (ABNORMAL) GLUCOSE, WHOLE BLOOD POC (07/31/2014 5:45 PM CDT) P athologist Signature Glucose, Whole 192 (H) 70 - 180 [facility] Blood mg/dl [facility] Comment: Point of Care Testing RN Notified Specimen Anatomical Collection Method Collection Time Receive d Time (Source) Location / / Volume Laterality 07/31/2014 5:45 PM 4 5:47 CDT PM CDT Cooper Shelley MD LAB_1 Performing Organization Address City/State/ZIP Code Phon e Number [address] [address] GLUCOSE, WHOLE BLOOD POC (07/31/2014 1:07 PM CDT) P athologist Signature Glucose, Whole 175 70 - 180 [facility] Blood mg/dl [facility] Comment: Point of Care Testing RN Notified Specimen Anatomical Collection Method Collection Time Receive d Time (Source) Location / / Volume Laterality 07/31/2014 1:07 PM 4 1:09 CDT PM CDT Cooper Shelley MD LAB_1 Performing Organization Address City/State/ZIP Code Phon e Number [phone] [address] [address] HEAD WITHOUT CONTRAST (07/31/2014 8:24 AM [...] by CT. Molly Diaz PA-C RAD CT CARDIOLIPIN AB, IGG & IGM (07/31/2014 8:01 AM CDT) Component Value Ref Test Analysis Performed Pathologis t Range Method Time At Signature Cardiolipin <14 [facility] Ab, IgG Reference range: See (NOTE) LIANNE WILLETT Unit: GPL Cardiolipin (NOTE) [facility] Ab, IgG ?? Value ? Interpretation HOSPITAL ?? ----- ? < or = 14 ?? Negative ?? 15 - 20 ? Indeterminate ?? 21 - 80 ? Low to Medium Positive ?? >80 ? High Positive Cardiolipin <12 [facility] Ab, IgM Reference range: See (NOTE) LIANNE VIVARTAL Unit: MPL Cardiolipin (NOTE) [facility] Ab, IgM ?? Value ? Interpretation [facility]OSPITAL ?? ----- ? < or = 12 ?? Negative ?? 13 - 20 ? Indeterminate ?? 21 - 80 ? Low to Medium Positive ?? >80 ? High Positive Comment See (NOTE) [facility] Reference range: See (NOTE) LIANNE WILLETT Comment (NOTE) [facility] The antiphospholipid antibody syndrome (APS) is a clinical-pathologic correlation that includes a clinical event(e.g. thrombosis, loss, thrombocytopenia) and persistent positive antiphospholipid antibodies (IgM or IgG LEONOR >40 MPL/GPL, IgM or IgG anti-b2GPI antibodies or a lupus anticoagulant). The IgA isotype has been implicated in smaller studies, but has not yet been incorporated into the APS criteria. International consensus guidelines suggest waiting at least 12 weeks before retesting to confirm antibody persistence. Reference J Thromb Haemost 2006: 4; ??295 Test performed at [facility] [address] ??[id number] Director: JUANCARLOS FINCH MD Specimen Anatomical Collection Method Collection Time Receive d Time (Source) Location / / Volume Laterality 07/31/2014 8:01 AM 4 8:02 CDT AM CDT Shin Salvador MD LAB_1 Performing Organization Address City/State/ZIP Code Phon e Number [phone] [address] (ABNORMAL) BASIC METABOLIC PANEL (07/31/2014 8:01 AM CDT) Analysis Performed At Patho logist Time Signature Sodium 132 (L) 135 - 145 [facility] mmol/L [facility] Potassium 4.3 3.5 - 5.3 [facility] mmol/L [facility] Chloride 94 (L) 95 - 106 [facility] mmol/L [facility] CO2 28 22 - 30 [facility] mmol/L [facility] Anion Gap 10 7 - 16 [facility] (calc.) mmol/L [facility] Glucose 158 70 - 180 [facility] mg/dl [facility] Calcium 9.5 8.4 - 10.2 [facility] mg/dl [facility] BUN 16 7 - 20 [facility] mg/dl [facility] Creatinine 0.65 (L) 0.66 - [facility] 1.25 mg/dl [facility] GFR, Estimated >60 >60 [facility] ml/min/1.7 [facility] 3m2 GFR, Est., If >60 >60 [facility] Black ml/min/1.7 [facility] 3m2 Specimen Anatomical Collection Method Collection Time Receive d Time (Source) Location / / Volume Laterality 07/31/2014 8:01 AM 4 8:02 CDT AM CDT Narrative [facility] - 07/31/2014 8:32 AM CD T Performed at [facility] , [address] [place] [address] Shin Salvador MD LAB_1 Performing Organization Address City/[facility]/ZIP [facility] Phon e Number [phone] [address] GLUCOSE, WHOLE BLOOD POC (07/31/2014 8:00 AM CDT) athologist Signature Glucose, Whole 160 70 - 180 [facility] Blood mg/dl [facility] Comment: Point of Care Testing RN Notified Specimen Anatomical Collection Method Collection Time Receive d Time (Source) Location / / Volume Laterality 07/31/2014 8:00 AM 4 8:03 CDT AM CDT Cooper Shelley MD LAB_1 Performing Organization Address [facility] Code Phon e Number [address] [address] (ABNORMAL) GLUCOSE, WHOLE BLOOD POC (07/30/2014 9:44 PM CDT) athologist Signature Glucose, Whole 217 (H) 70 - 180 [facility] Blood mg/dl [facility] Comment: Point of Care Testing RN Notified Specimen Anatomical Collection Method Collection Time Receive d Time (Source) Location / / Volume Laterality 07/30/2014 9:44 PM 4 CDT 10:08 PM CDT Cooper Shelley MD LAB_1 Performing Organization Address City/[facility]/ZIP [facility] Phon e Number [address] [address] LUPUS ANTICOAGULANT WORKUP (07/30/2014 6:32 PM CDT) [facility] Method Time Signature Protime 14.0 12.0 - [facility] 14.5 sec HOSPITAL INR 1.1 0.9 - 1.1 [facility] PTT 26.0 24.0 - [facility] 37.0 sec HOSPITAL Thrombin Time 15.8 14.3 - [facility] 19.1 sec HOSPITAL Mixing Screen Cancelled by Pathology. Scre ening tests normal, further testing not [facility] for [place] indicated. HOSPITAL Dil Christiano Screening [facility] Viper Venom test normal. HOSPITAL Further testing not indicated. Sta[employer] [place] Cancelled by Pathology. Screening tests normal, further testing not [facility] indicated. [facility] Specimen Anatomical Collection Method Collection Time Receive d Time (Source) Location / / Volume Laterality 07/30/2014 6:32 PM 4 6:38 CDT PM CDT Narrative [facility] - 08/02/2014 10:55 AM C DT Performed at [facility] , [address] [place] [address] Cooper Shelley MD LAB_1 Performing Organization Address City/[facility]/ZIP [facility] Phon e Number [address] [address] GLUCOSE, WHOLE BLOOD POC (07/30/2014 5:50 PM CDT) athologist Signature Glucose, Whole 118 70 - 180 [facility] Blood mg/dl [facility] Comment: Point of Care Testing RN Notified Specimen Anatomical Collection Method Collection Time Receive d Time (Source) Location / / Volume Laterality 07/30/2014 5:50 PM 4 5:54 CDT PM CDT Cooper Shelley MD LAB_1 Performing Organization Address City/[facility] Phon e Number [address] [address] US VENOUS DUPLEX LOWER EXTREMITY BILATERAL (07/30/2014 [...] LITY FOR WHICH FOLLOWUP IS NEEDED. Molly Diaz PA-C RAD US CT HEAD WITHOUT CONTRAST (07/30/2014 2:41 PM [...] contrast. CONTRAST: None. SEDATION: None. COMPARISON: [facility] [place] [facility] [place] perform ed at 6:15 AM [...] infarct, he morrhage, or mass. Procedure Note aKi Fajardo II, MD - 07/30/2014Formatti ng of this note might be different from the original. CT HEAD WO CONT 07/30/2014 2:41 PM INDICATION: New neurologic changes (janis ated tongue, pronator drift) status post subdural evacuation. TECHNIQUE: Serial axial images were obta ined through the brain without contrast. CONTRAST: None. SEDATION: None. COMPARISON: [facility] [place] [facility] perform ed at 6:15 AM [...] or mass. Molly Diaz PA-C RAD CT GLUCOSE, WHOLE BLOOD POC (07/30/2014 12:44 PM CDT) P athologist Signature Glucose, Whole 109 70 - 180 [facility] Blood mg/dl [facility] Comment: Point of Care Testing No Action Required Specimen Anatomical Collection Method Collection Time Receive d Time (Source) Location / / Volume Laterality 07/30/2014 12:44 07/30/2014 PM CDT 12:50 PM CDT Cooper Shelley MD LAB_1 Performing Organization Address City/[facility]/ZIP Code Phon e Number [address] [address] GLUCOSE, WHOLE BLOOD POC (07/30/2014 8:02 AM CDT) athologist Signature Glucose, Whole 94 70 - 180 [facility] Blood mg/dl [facility] Comment: Point of Care Testing No Action Required Specimen Anatomical Collection Method Collection Time Receive d Time (Source) Location / / Volume Laterality 07/30/2014 8:02 AM 4 8:16 CDT AM CDT Cooper Shelley MD LAB_1 Performing Organization Address City/[facility]/ZIP Code Phon e Number [address] [address] (ABNORMAL) INR/PROTIME (07/30/2014 6:56 AM CDT) athologist Signature Protime 14.9 (H) 12.0 - 14.5 [facility] INR 1.2 (H) 0.9 - 1.1 [facility] Specimen Anatomical Collection Method Collection Time Receive d Time (Source) Location / / Volume Laterality 07/30/2014 6:56 AM 4 6:57 CDT AM CDT [facility] - 07/30/2014 7:57 AM CD T Performed at [facility] , [address] [place] [address] Douglas Hays PA-C LAB_1 Performing Organization Address City/[facility]/ZIP Code Phon e Number [address] [address] (ABNORMAL) HEMOGRAM/PLTS (07/30/2014 6:56 AM CDT) P athologist Signature WBC 11.0 4.0 - 11.0 [facility] k/ul HOSPITAL RBC 3.87 (L) 4.5 - 5.9 [facility] M/ul HOSPITAL Hemoglobin 11.8 (L) 13.5 - 17.5 [facility] g/dl HOSPITAL HCT 35.6 (L) 41.0 - 53.0 [facility] % HOSPITAL MCV 92.0 80 - 100 fl [facility] MCH 30.5 26 - 34 pg [facility] MCHC 33.1 32 - 36 [facility] g/dl HOSPITAL RDW 13.7 11.5 - 14.5 [facility] Platelets 177 150 - 450 [facility] k/ul [facility] MPV 10.5 9.4 - 12.4 [facility] Specimen Anatomical Collection Method Collection Time Receive d Time (Source) Location / / Volume Laterality 07/30/2014 6:56 AM 4 6:57 CDT AM CDT Narrative [facility] - 07/30/2014 7:24 AM CD T Performed at [facility] , [address] [place] [address] Douglas Hays PA-C LAB_1 Performing Organization Address City/State/ZIP Code Phon e Number [phone] [address] (ABNORMAL) BASIC METABOLIC PANEL (07/30/2014 6:56 AM CDT) P athologist Signature Sodium 132 (L) 135 - 145 [facility] mmol/L [facility] Potassium 3.9 3.5 - 5.3 [facility] mmol/L [facility] Chloride 92 (L) 95 - 106 [facility] mmol/L [facility] CO2 29 22 - 30 [facility] mmol/L [facility] Anion Gap 11 7 - 16 [facility] (calc.) mmol/L [facility] Glucose 103 70 - 180 [facility] mg/dl [facility] Calcium 9.2 8.4 - 10.2 [facility] mg/dl [facility] BUN 12 7 - 20 [facility] mg/dl [facility] Creatinine 0.69 0.66 - [facility] 1.25 mg/dl [facility]OS[facility] GFR, Estimated >60 >60 [facility] ml/min/1.7 [facility] 3m2 GFR, Est., If >60 >60 [facility] Black ml/min/1.7 [facility] 3m2 Specimen Anatomical Collection Method Collection Time Receive d Time (Source) Location / / Volume Laterality 07/30/2014 6:56 AM 4 6:57 CDT AM CDT Narrative [facility] - 07/30/2014 7:40 AM CD T Performed at [facility] , [address] [place] [address] Douglas Hays PA-C LAB_1 Performing Organization Address City/State/ZIP Code Phon e Number [facility] [address] [place] [address] [address] [address] ANGIOGRAPHY HEAD (07/30/2014 6:27 AM CDT) Anatomical Region Laterality Modality Neck, Head, Vascular Computed Tomography Specimen (Source) Anatomical Collection Method Collection Time Re ceived Time Location / / Volume Laterality 07/30/2014 6:27 AM CDT Narrative 07/30/2014 7:[address] ANGIOGRAM WITH IV CONTRAST 07/30/2014 6:27 AM INDICATION: AVM. TECHNIQUE: Head CT angiogram with IV con trast. Noncontrast head CT followed by axial helical CT images of the intra cranial vessels obtained during the arterial phase of intravenous contrast administration. Axial helical 2D reconstructed images and multiplanar 3D MIP reconstructed images of the intracranial vessels were performed by kyle ribeiro technologist. CONTRAST: 80 mL Omnipaque 350. COMPARISON: Prior head CT 07/29/2014. FINDINGS: NONCONTRAST HEAD CT: Previous right klaus etal keegan hole. Short subdural drain is seen within the right parietal extra-axial space. The extra-axial hemorrhage and gas collection is slightl y more prominent than on the prior study, focally increased in thickness wi thin the right anterior parietal region measuring up to 7 mm series 8, im age 31. No significant midline shift. No new hemorrhage. No definite CT evidence of acute infarct. HEAD CTA: Codominant vertebral arteries and the basilar artery are widely patent. The examination is limited by pa tient motion. Partial origin of the right posterior cerebral artery. Proximal posterior cerebral arteries are widely patent. The distal b ranches are obscured by venous contamination, though appear grossly pat ent. Distal internal carotid, middle cerebral, and anterior cerebral a rteries are patent. There is a slightly prominent right M2 and M3 divis ion MCA branch and prominent cortical vein coursing along the right f rontoparietal convexity including deep to the keegan hole. The subdural drai n extends up to the level of this vein any may contact it. No definite AVM ??is identified. 1 mm outpouching projected superiorly left paraophthalmic ICA there is prominence of the origin of the vessel. Small aneurysm is considered less likely though not entirely excluded. CONCLUSION: Head CT: 1. Minimal increase in size of right sub dural gas and hemorrhage compared to the prior examination. No new mass ef fect or significant midline shift. 2. Indwelling right subdural drain and r ight parietal keegan hole again noted. No new hemorrhage. CTA: 1. Prominent cortical vein coursing bella g the right frontoparietal convexity including just deep to the bur r hole. The tip of the subdural drain extends up to the vein and appears to contact it. There are slightly prominent distal MCA branches in this re gion, though no definite AVM nidus is identified. A small blush of contrast in the region of the cortical vein near the tip of the subdural drainage c atheter is nonspecific. If there are persistent concerns for vascular mal formation, conventional angiography would be suggested. Procedure Note Raudel Polo MD - 07/30/2014Formattin g of this note might be different from the original. HEAD CT ANGIOGRAM WITH IV CONTRAST 07/30/2014 6:27 AM INDICATION: AVM. TECHNIQUE: Head CT angiogram with IV con trast. Noncontrast head CT followed by axial helical CT images of the intra cranial vessels obtained during the arterial phase of intravenous contrast administration. Axial helical 2D reconstructed images and multiplanar 3D MIP reconstructed images of the intracranial vessels were performed by kyle ribeiro technologist. CONTRAST: 80 mL Omnipaque 350. COMPARISON: Prior head CT 07/29/2014. FINDINGS: NONCONTRAST HEAD CT: Previous right klaus etal keegan hole. Short subdural drain is seen within the right parietal extra-axial space. The extra-axial hemorrhage and gas collection is slightl y more prominent than on the prior study, focally increased in thickness wi thin the right anterior parietal region measuring up to 7 mm series 8, im age 31. No significant midline shift. No new hemorrhage. No definite CT evidence of acute infarct. HEAD CTA: Codominant vertebral arteries and the basilar artery are widely patent. The examination is limited by pa tient motion. Partial origin of the right posterior cerebral artery. Proximal posterior cerebral arteries are widely patent. The distal b ranches are obscured by venous contamination, though appear grossly pat ent. Distal internal carotid, middle cerebral, and anterior cerebral a rteries are patent. There is a slightly prominent right M2 and M3 divis ion MCA branch and prominent cortical vein coursing along the right f rontoparietal convexity including deep to the keegan hole. The subdural drai n extends up to the level of this vein any may contact it. No definite AVM is identified. 1 mm outpouching projected superiorly left paraophthalmic ICA there is prominence of the origin of the vessel. Small aneurysm is considered less likely though not entirely excluded. CONCLUSION: Head CT: 1. Minimal increase in size of right sub dural gas and hemorrhage compared to the prior examination. No new mass ef fect or significant midline shift. 2. Indwelling right subdural drain and r ight parietal keegan hole again noted. No new hemorrhage. CTA: 1. Prominent cortical vein coursing bella g the right frontoparietal convexity including just deep to the bur r hole. The tip of the subdural drain extends up to the vein and appears to contact it. There are slightly prominent distal MCA branches in this re gion, though no definite AVM nidus is identified. A small blush of contrast in the region of the cortical vein near the tip of the subdural drainage c atheter is nonspecific. If there are persistent concerns for vascular mal formation, conventional angiography would be suggested. Cooper Shelley MD RAD CT GLUCOSE, WHOLE BLOOD POC (07/29/2014 4:52 PM CDT) athologist Signature Glucose, Whole 166 70 - 180 [facility] Blood mg/dl [facility] Comment: Point of Care Testing No Action Required Specimen Anatomical Collection Method Collection Time Receive d Time (Source) Location / / Volume Laterality 07/29/2014 4:52 PM 4 4:58 CDT PM CDT Cooper Shelley MD LAB_1 Performing Organization Address City/State/ZIP Code Phon e Number [address] [address] GLUCOSE, WHOLE BLOOD POC (07/29/2014 11:57 AM CDT) athologist Signature Glucose, Whole 130 70 - 180 [facility] Blood mg/dl [facility] Comment: Point of Care Testing RN Notified Specimen Anatomical Collection Method Collection Time Receive d Time (Source) Location / / Volume Laterality 07/29/2014 11:57 07/29/2014 AM CDT 12:13 PM CDT Cooper Shelley MD LAB_1 Performing Organization Address City/[facility]/[place] [facility] [place]on [place] Number [address] [address] GLUCOSE, WHOLE BLOOD POC (07/29/2014 8:19 AM CDT) P athologist Signature Glucose, Whole 143 70 - 180 [facility] Blood mg/dl [facility] Comment: Point of Care Testing RN Notified Specimen Anatomical Collection Method Collection Time Receive d Time (Source) Location / / Volume Laterality 07/29/2014 8:19 AM 4 8:39 CDT AM CDT Cooper Shelley MD LAB_1 Performing Organization Address City/[facility] Phon e Number [address] [address] [address] HEAD WITHOUT CONTRAST (07/29/2014 4:30 AM [...] extends approximately 1 cm intracranially. Procedure Note Cristhian Parks MD - 07/29/2014Formatti ng of this note [...] cm intracranially. Molly Diaz PA-C RAD CT (ABNORMAL) BASIC METABOLIC PANEL (07/29/2014 4:10 AM CDT) athologist Signature Sodium 136 135 - 145 [facility] mmol/L [facility] Potassium 4.8 3.5 - 5.3 [facility] mmol/L [facility] Chloride 99 95 - 106 [facility] mmol/L [facility] CO2 27 22 - 30 [facility] mmol/L [facility] Anion Gap 10 7 - 16 [facility] (calc.) mmol/L [facility] Glucose 186 (H) 70 - 180 [facility] mg/dl [facility] Calcium 9.3 8.4 - 10.2 [facility] mg/dl [facility] BUN 10 7 - 20 [facility] mg/dl [facility] Creatinine 0.71 0.66 - [facility] 1.25 mg/dl [facility] GFR, Estimated >60 >60 [facility] ml/min/1.7 [facility] 3m2 GFR, Est., If >60 >60 [facility] Black ml/min/1.7 [facility] 3m2 Specimen Anatomical Collection Method Collection Time Receive d Time (Source) Location / / Volume Laterality 07/29/2014 4:10 AM 4 4:11 CDT AM CDT Narrative [facility] - 07/29/2014 4:26 AM CD T Performed at [facility] , [address] [place] [id number] Cooper Shelley MD LAB_1 Performing Organization Address City/[facility]/[place]IP [facility] [place] Phon [place] Number [address] [address] (ABNORMAL) HGB A1C (07/29/2014 3:19 AM CDT) athologist Signature Hgb A1c 6.4 (H) 4.3 - 6.1 % [facility] Comment: The usual A1C goal for people with diabe jeremy, age 18-75, is <8.0%. Physicians may recommend a higher or lo wer goal for specific individuals. Specimen Anatomical Collection Method Collection Time Receive d Time (Source) Location / / Volume Laterality 07/29/2014 3:19 AM 4 3:22 CDT AM CDT [facility] - 07/29/2014 12:53 PM C DT Performed at [facility], [address] [place] [address] ??[id number] Jamaica Wei PA-C LAB_1 Performing Organization Address [facility] Phon e Number [address] [address] ADD ON LAB ORDERS(SPECIMEN IN LAB) (07/29/2014 3:19 AM CDT) [facility] Method Time Signature Add On Test Additional [facility] Ordered by Specimen Anatomical Collection Method Collection Time Receive d Time (Source) Location / / Volume Laterality 07/29/2014 3:19 AM 4 3:22 CDT AM CDT [facility] - 07/29/2014 9:01 AM CD T Performed at [facility] , [address] [place] [id number] Jamaica Wei PA-C LAB_1 Performing Organization Address [facility] Phon e Number [address] [address] (ABNORMAL) INR/PROTIME (07/29/2014 3:19 AM CDT) P athologist Signature Protime 15.2 (H) 12.0 - 14.5 [facility] INR 1.2 (H) 0.9 - 1.1 [facility] Specimen Anatomical Collection Method Collection Time Receive d Time (Source) Location / / Volume Laterality 07/29/2014 3:19 AM 4 3:22 CDT AM CDT [facility] - 07/29/2014 3:38 AM CD T Performed at [facility] , [address] [place] [address] Cooper Shelley MD LAB_1 Performing Organization Address City/[facility] Phon e Number [address] [address] (ABNORMAL) Hemogram with Platelets (07/29/2014 3:19 AM CDT) athologist Signature WBC 7.7 4.0 - 11.0 [facility] RBC 4.36 (L) 4.5 - 5.9 [facility] Hemoglobin 13.3 (L) 13.5 - 17.5 [facility] g/[facility] HCT 39.3 (L) 41.0 - 53.0 [facility] MCV 90.1 80 - 100 [facility] MCH 30.5 26 - 34 pg [facility] MCHC 33.8 32 - 36 [facility] RDW 13.4 11.5 - 14.5 [facility] Platelets 173 150 - 450 [facility] MPV 11.6 9.4 - 12.4 [facility] Specimen Anatomical Collection Method Collection Time Receive d Time (Source) Location / / Volume Laterality 07/29/2014 3:19 AM 4 3:22 CDT AM CDT [facility] - 07/29/2014 3:30 AM CD T Performed at [facility] , [address] [place] [address] Cooper Shelley MD LAB_1 Performing Organization Address [facility] Phon e Number [address] [address] MRSA ADMIT SCREEN (07/28/2014 10:30 PM CDT) Component Value Ref Test Analysis Performed At [facility] Range Method Time Signature Specimen Nose Swab [facility] Description [facility] Special Unspecified [facility] Requests [facility]OS[facility]ITAL PCR No MRSA DNA [facility] Detected [facility] Culture No Methicillin [facility] Resistant [facility] Staphylococcus aureus Report Status Final 07/29/2014 [facility] Specimen Anatomical Collection Method Collection Time Receive d Time (Source) Location / / Volume Laterality Nasal swab taken 07/28/2014 10:30 2 014 4:45 (situation) PM CDT AM CDT Narrative [facility] - 07/29/2014 6:40 AM CD T Performed at [facility] , [address] [place] [address] Cooper Shelley MD LAB_1 Performing Organization Address City/[facility] Phon e Number [address] [address] GLUCOSE, WHOLE BLOOD POC (07/28/2014 10:21 PM CDT) athologist Signature Glucose, Whole 133 70 - 180 [facility] Blood mg/dl [facility] Comment: Point of Care Testing RN Notified Specimen Anatomical Collection Method Collection Time Receive d Time (Source) Location / / Volume Laterality 07/28/2014 10:21 07/28/2014 PM CDT 10:27 PM CDT Cooper Shelley MD LAB_1 Performing Organization Address City/[facility]/ZIP Code Phon e Number [address] [address] GLUCOSE, WHOLE BLOOD POC (07/28/2014 9:09 PM CDT) athologist Signature Glucose, Whole 122 70 - 180 [facility] Blood mg/dl [facility] Comment: Point of Care Testing RN Notified Specimen Anatomical Collection Method Collection Time Receive d Time (Source) Location / / Volume Laterality 07/28/2014 9:09 PM 4 9:15 CDT PM CDT Cooper Shelley MD LAB_1 Performing Organization Address City/[facility]/[place]IP [facility] [place] Phon [place] Number [address] [address] BB HOLD TUBE ([facility] ONLY) (07/28/2014 7:40 PM CDT) [facility] Method Time Signature BB Hold Tube Blood Bank [facility] save tube HOSPITAL expires in 3 days Specimen Anatomical Collection Method Collection Time Receive d Time (Source) Location / / Volume Laterality 07/28/2014 7:40 PM 4 8:17 CDT PM CDT Narrative [facility] - 07/28/2014 8:19 PM CD T Performed at [facility] , [address] [place] [id number] Cooper Shelley MD LAB_1 Performing Organization Address City/[facility] Phon e Number [address] [address] BB HOLD TUBE ([facility] ONLY) (07/28/2014 7:35 PM CDT) [facility] gist Method Time Signature BB Hold Tube Blood Bank [facility] expires in 3 days Specimen Anatomical Collection Method Collection Time Receive d Time (Source) Location / / Volume Laterality 07/28/2014 7:35 PM 4 8:18 CDT PM CDT [facility] - 07/28/2014 8:20 PM CD T Performed at [facility] , [address] [place] [address] Cooper Shelley MD LAB_1 Performing Organization Address City/[facility]/ZIP Code Phon e Number [address] [address] GLUCOSE, WHOLE BLOOD POC (07/28/2014 6:42 PM CDT) P athologist Signature Glucose, Whole 129 70 - 180 [facility] Blood mg/dl [facility] Comment: Point of Care Testing No Action Required Specimen Anatomical Collection Method Collection Time Receive d Time (Source) Location / / Volume Laterality 07/28/2014 6:42 PM 4 6:50 CDT PM CDT Cooper Shelley MD LAB_1 Performing Organization Address City/[facility]/ZIP Code Phon e Number [address] [address] ABO Rh & Antibody Screen (Type & Screen) (07/28/2014 5:58 PM CDT) Patholo gist Method Time Signature Crossmatch 07/31/2014 [facility] A NEGATIVE [facility] Antibody NEGATIVE [facility] Specimen Anatomical Collection Method Collection Time Receive d Time (Source) Location / / Volume Laterality 07/28/2014 5:58 PM 4 5:59 CDT PM CDT Narrative [facility] - 07/28/2014 6:54 PM CD T Performed at [facility] , [address] [place] [address] Cooper Shelley MD LAB_1 Performing Organization Address [facility] Phon e Number [address] [address] (ABNORMAL) aPTT (Activated Partial Thromboplastin Time) (07/28/2014 5:58 PM CDT) P athologist Signature PTT 51.2 (H) 24.0 - 37.0 [facility] Specimen Anatomical Collection Method Collection Time Receive d Time (Source) Location / / Volume Laterality 07/28/2014 5:58 PM 4 5:59 CDT PM CDT [facility] - 07/28/2014 6:30 PM CD T Performed at [facility] , [address] [place] [address] Cooper Shelley MD LAB_1 Performing Organization Address City/[facility] Phon e Number [address] [address] (ABNORMAL) INR/Protime (PT/INR) (07/28/2014 5:58 PM CDT) P athologist Signature Protime 15.3 (H) 12.0 - 14.5 [facility] INR 1.2 (H) 0.9 - 1.1 [facility] Specimen Anatomical Collection Method Collection Time Receive d Time (Source) Location / / Volume Laterality 07/28/2014 5:58 PM 4 5:59 CDT PM CDT [facility] - 07/28/2014 6:30 PM CD T Performed at [facility] , [address] [place] [address] Cooper Shelley MD LAB_1 Performing Organization Address [facility] Phon e Number [address] [phone] (ABNORMAL) Basic Metabolic Panel (BUN, Ca, Cl, CO2, Creat, Gluc, K, Na) (07/28/2014 5:58 PM CDT) athologist Signature Sodium 134 (L) 135 - 145 [facility] mmol/L [facility] Potassium 4.6 3.5 - 5.3 [facility] mmol/L [facility] Chloride 96 95 - 106 [facility] mmol/L [facility] CO2 27 22 - 30 [facility] mmol/L [facility] Anion Gap 11 7 - 16 [facility] (calc.) mmol/L [facility] Glucose 135 70 - 180 [facility] mg/dl [facility] Calcium 9.6 8.4 - 10.2 [facility] mg/dl [facility] BUN 12 7 - 20 [facility] mg/dl [facility] Creatinine 0.71 0.66 - [facility] 1.25 mg/dl [facility] GFR, Estimated >60 >60 [facility] ml/min/1.7 [facility] 3m2 GFR, Est., If >60 >60 [facility] Black ml/min/1.7 [facility] 3m2 Specimen Anatomical Collection Method Collection Time Receive d Time (Source) Location / / Volume Laterality 07/28/2014 5:58 PM 4 5:59 CDT PM CDT [facility] - 07/28/2014 6:30 PM CD T Performed at [facility] , [address] [place] [id number] Cooper Shelley MD LAB_1 Performing Organization Address [facility] Phon e Number [address] [phone] (ABNORMAL) Hemogram with Platelets (07/28/2014 5:58 PM CDT) athologist Signature WBC 7.0 4.0 - 11.0 [facility] k/ul [facility]OSP[facility] RBC 4.27 (L) 4.5 - 5.9 [facility] M/ul [facility] Hemoglobin 13.0 (L) 13.5 - 17.5 [facility] g/dl HOSPITAL HCT 38.6 (L) 41.0 - 53.0 [facility] % HOSPITAL MCV 90.4 80 - 100 fl [facility] MCH 30.4 26 - 34 pg [facility] MCHC 33.7 32 - 36 [facility] g/dl HOSPITAL RDW 13.3 11.5 - 14.5 [facility] Platelets 173 150 - 450 [facility] k/ul HOSPITAL MPV 10.7 9.4 - 12.4 [facility]PITAL Specimen Anatomical Collection Method Collection Time Receive d Time (Source) Location / / Volume Laterality 07/28/2014 5:58 PM 4 5:59 CDT PM CDT Narrative [facility] - 07/28/2014 6:21 PM CD T Performed at [facility] , [address] [place] [address] Cooper Shelley MD LAB_1 Performing Organization Address City/State/ZIP Code Phon e Number [address] [address] EKG IP (07/28/2014 12:00 AM CDT) Specimen (Source) Anatomical Location Collection Method / Collectio n Time Received Time / Laterality Volume 07/28/2014 Narrative This result has an attachment that is no t available. EKG EKG IP (07/28/2014 12:00 AM CDT) Specimen (Source) Anatomical Location Collection Method / Collectio n Time Received Time / Laterality Volume 07/28/2014 Narrative This result has an attachment that is no t available. EKG documented in this encounter Visit Diagnoses Diagnosis SDH (subdural hematoma) ([facility]) - Primary Subdural hemorrhage DVT (deep venous thrombosis), unspecifie d laterality HTN (hypertension) ([facility]) Unspecified essential hypertension Neurogenic bladder Neurogenic bladder, NOS DM w/o complication type II ([facility]) Type II or unspecified type diabetes sami litus without mention of complication, not stated as uncontrolled Hyponatremia Hyposmolality and/or hyponatremia Dyslipidemia ([facility]) Other and unspecified hyperlipidemia Neuropathic pain Neuralgia, neuritis, and radiculitis, un specified Orthostatic hypotension Plan of Care - Aidee Forbes RN - 08/02/2014 7:27 PM CDT [facility] Discharge Note - Nursing Admission Date/Time: 07/28/2014 4:05 PM Attending MD: Cooper Shelley MD Patient discharged: to Home. Discharge Date: 08/02/14 Discharge Time: 1820 Patient accompanied by: spouse. Transported by: Wheelchair [...] not delete line; Warfarin documentation is required) No Patients general condition on discharge: A &0 x 4. Able to make needs known. Neuro/CMS intact. PERRLA. BUE strong. LUE weakness noted when up in chair, holding cup. Reviewed all d/c instructions indetail with patients . Expressed understanding of all instructions. Left floor with paper Jasper p rescription, this wasn't filled by [facility] pharmacy. Will take and fill at [facility]. All medical devices (telemetry/IV/etc) unless otherwise ordered, have been removed and stored: Yes Report Completed by: Aidee Parks RN --- End of Report --- Plan of Care - Priti Hickey RN - 08/02/2014 4:34 PM CDT Problem: General Plan of Care Goal: Discharge Needs Assessment 08/02/14 9177 Care Coordination Care Team Actions Needed MD medical clearance;PT/OT consult;patient requires further observation [facility] Plan of Care Note Assessment: Discharge planning Plan: Will be discharged as appropriate Subjective: none Objective: Was cleared for discharge per neurosurgery and medicine. Also hematology per note. There is a concern regarding if he needed diabetic teaching and this was cleared by endocrine service as patient is pre-diabetic and diet controlled. BPs have been elevated. Patient Vitals for the past 24 hrs: BP Temp Temp src Pulse Resp SpO2 08/02/14 1531 162/94 mmHg - - 75 - - 08/02/14 1433 163/98 mmHg 97.4 ??F (36.3 ??C) Oral 74 15 100 % 08/02/14 0600 159/97 mmHg 97.6 ??F (36.4 ??C) Oral 79 12 96 % 08/01/14 2150 117/65 mmHg 98 ??F (36.7 ??C) Oral 80 18 96 % and internal medicine was text paged with this information. Patient is denying pain. Given hydralazine this afternoon. Also De La Cruz catheter was changed today. --- End of Report --- Plan of Care - Aidee Forbes RN - 08/02/2014 3:48 PM CDT [facility]. MD Notified Note Name of MD notified: Dr. Kathleen Time of MD notification: 1500 hours and 49 minutes Reason: BP @ 1444 163/98, hydralazine 25 mg given. Now BP 162/94. Ok to d/c Response: Yes ok to d/c follow-up with primary care doctor. Aidee Parks RN --- End of Report --- Plan of Care - Luke Siegel - 08/02/2014 12:22 PM CDT [facility] Complementary Care Therapy Note Complementary Care Therapy Massage: Provided, Positioning for Massage : Seated in chair, Areas Addressed with Massage: Posterior Neck;Upper shoulders;Upper back;Middle back;Lower back Floor Location: s10 Therapy explained: Patient Verbal consent given per: Patient Time with Patient: 20 min Pain Pre-Therapy: 5 Pain Post-Therapy: 3 Anxiety Level Pre-Therapy: 0 Anxiety Level Post-Therapy: 0 Nausea Level Pre-Therapy: 0 Nausea Level Post-Therapy: 0 Patient Comments/Feedback: - Assessment Patient referred to Complementary Care Therapies Massage Therapy for post op care support. Prior to entering pt's room, Massage Therapist reviewed pt's chart for site, pressure and positional contraindications as they pertain to massage therapy. Massage therapy treatment offered to pt, pt accepted. Pt reports moderate level of lower back pain. Pt states back pain/discomfort is chronic. Denies anxiety and nausea. Goals for this session include promote pain reduction and promote relaxation. Massage Therapist provided massage to entire back bilaterally as well as posterior neck and shoulders using light to moderate pressure holding, gliding, kneading and frictioning strokes with pt seated in wheelchair. Post session, pt reported a reduction in pain as noted above. Plan Future sessions could address the areas worked today or as pt requests. [facility] will be available to pt while an inpatient as schedule allows. Time: 12:25 PM Date: 08/02/2014 Report Completed by: Luke Siegel COUNT INCLUDES THE [facility] Pager # [phone] Thank you for referring this pt to [facility]. --- End of Report --- Plan of Care - Stella Parra RN - 08/02/2014 7:54 AM CDT Problem: General Plan of Care Goal: Plan of Care Review The patient and/or their event representative will communicate an understanding of their plan of care. 08/02/14 0753 Coping/Psychosocial Response Interventions Plan of Care Reviewed with patient;spouse Plan of Care Progress improving Plan of Care - Carlene Silver RN - 08/01/2014 7:49 PM CDT General Plan of Care ??? Plan of Care Review Ongoing ??? Individualization and Mutuality Ongoing ??? Discharge Needs Assessment Ongoing ??? Safety and Fall Prevention Ongoing Moderate Risk Fall Prevention ??? Moderate Risk (5-10): Fall Prevention Ongoing Perioperative Period (Adult, Obstetrics) ??? Potential Problems (Perioperative Period) Ongoing [facility] Plan of Care Note Assessment: pain, activity. Plan: will continue to assess and medicate as needed for pain. Will encourage increase activity. Subjective: rates pain on the back 3/10, tolerable relief stated with Jasper. Per patient tired and refused to get up in chair. Objective: patient is alert and oriented x4. Adequate pain relief with Jasper. Dangle at side of bed for dinner. De La Cruz patent. 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 Completed 1L of IVF. Had 75% for dinner. --- End of Report --- Plan of Care - Mónica Saldana RN - 08/01/2014 3:03 PM CDT Problem: General Plan of Care Goal: Plan of Care Review The patient and/or their event representative will communicate an understanding of their plan of care. Outcome: Ongoing [facility] Plan of Care Note Assessment: Orthostatic bp Plan: Pt will have normative bp while sitting up Subjective: When pt transferred to chair he stated, I feel off. Objective: Nursing took bp and it was low 71/43. MD aware. Placed SCD's on legs and pt continued to sit in chair; bp's came up to low 100's/50's. --- End of Report --- Plan of Care - Mónica Saldana RN - 08/01/2014 10:52 AM CDT [facility]. MD Notified Note Name of MD notified: Merly Time of MD notification: 1000 hours and 52 minutes Reason: BP 71/43 sitting in a chair. HR 96. Pls advise. Response: Mónica Saldana RN --- End of Report --- Plan of Care - Cortney Montez RN - 08/01/2014 8:07 AM CDT Problem: Perioperative Period (Adult, Obstetrics) Intervention: Pressure Reduction Techniques [facility] Plan of Care Note Assessment: Pain Plan: Pain medication Subjective: Pt reports, I have pain in my back, can I have some pain medication. Objective: Pt appears calm & comfortable between cares, sleeping majority of shift. Prn norco given x 1 for pain with relief. Mild confusion to place & situation in middle of night which resolved. PERRL. Turned Q 2-3 hours from side to side for comfort. Pillows for positioning & comfort. --- End of Report --- Plan of Care - Mónica Saldana RN - 08/01/2014 8:07 AM CDT [facility]. MD Notified Note Name of MD notified: Merly Time of MD notification: 0800 hours and 8 munites Reason: Na+ at 128. Pls advise. Response: None needed Mónica Saldana RN --- End of Report --- Plan of Care - Carlene Silver RN - 07/31/2014 11:15 PM CDT General Plan of Care ??? Plan of Care Review Ongoing ??? Individualization and Mutuality Ongoing ??? Discharge Needs Assessment Ongoing ??? Safety and Fall Prevention Ongoing Moderate Risk Fall Prevention ??? Moderate Risk (5-10): Fall Prevention Ongoing Perioperative Period (Adult, Obstetrics) ??? Potential Problems (Perioperative Period) Ongoing [facility] Plan of Care Note Assessment: Comfort. Plan: patient will be comfortable. Subjective: rates pain on the back at 3/10, decline pain medication. Objective: patient is alert and oriented x4. Pain on the back is tolerable and relief with repositioning. Assist of 2. De La Cruz intact. Colostomy intact. Repositioned for comfort. FSG is 192, 201 and 220,had SSI. --- End of Report --- Plan of Care - Priti Hickey RN - 07/31/2014 5:00 PM CDT Problem: Perioperative Period (Adult, Obstetrics) Goal: Potential Problems (Perioperative Period) Signs and symptoms of listed potential problems will be absent or manageable (reference Perioperative Period (Adult, Obstetrics) CPG) 07/31/14 2442 Goal/Outcome Evaluation Problems Assessed (Perioperative Period) situational response;acute pain;other (see comments) [facility] Plan of Care Note Assessment: Neuro status Plan: Will have monitoring of neuro status Subjective: Patient states he is having increased left hand weakness Objective: Noted to have weakness in left hand with decreased fine motor movement. Dropping eating utensils. Requested to be put back to bed after one hour up today due to feeling weak. MD here to see patient. --- End of Report --- Plan of Care - Maria Guadalupe Marks RN - 07/30/2014 11:16 PM CDT Problem: General Plan of Care Goal: Plan of Care Review The patient and/or their event representative will communicate an understanding of their plan of care. Outcome: Ongoing 07/30/142311 Coping/Psychosocial Response Interventions Plan of Care Reviewed with patient;family;significant other Referrals Interdisciplinary Rounds done with: provider Plan of Care Progress improving Goal: Safety and Fall Prevention Outcome: Ongoing Intervention: Basic Safety Interventions 07/30/142311 Basic Safety and Fall Prevention Basic Safety Interventions patient oriented to surroundings, including bathroom location, use of bed, location of call light;patient/family informed about fall risk assessments, fall injury risks, routine and special interventions for fall prevention;patient/family encouraged to call for assistance when needed;call light and frequently used objects within reach;ensured that patient is safe and independent with assistive devices;bed in lowest position;upper side rails up Problem: Perioperative Period (Adult, Obstetrics) Intervention: Skin/Mucous Membrane Protection 07/30/142311 Skin Interventions Skin/Mucous Membrane Protection absorbent garment/pad/diaper changed;positioned off wounds;skin to skin areas padded;age appropriate skin cleansing provided Plan of Care - Tania Nieto RN - 07/30/2014 7:08 PM CDT [facility] Rapid Response Team Note Time, Date & Location Date of Call: 07/30/14 Person Requesting Team: RN Location of Call : S10 Time Called: 1314 Time Team Arrived: 1316 Time Team Left Unit: 1700 People Arriving for Call: MD;RN;RT Transfer/Admission Information Background Information: Other here with head bleed, evacuated days prior, drain removed earlier today. Transferred from ICU w/in 24h of call?: No Admitted through ED w/in 12h of call?: No Surgery within 24 hours of call?: No Brief Summary of Interventions: Other Head CT Outcome: Remained in current unit Reason For Call Cardiovascular : (not recorded) Respiratory : (not recorded) Neurological : Sudden and sevre headache;Sudden unexplained loss of movement or weakness of face, arms, or legs especially on one side of the body Signifcant Acute Change: (not recorded) Other Reason for Call: (not recorded) Vital Signs Patient Vitals for the past 2 hrs: Pulse BP Resp SpO2 07/30/14 1745 86 147/96 mmHg 18 96 % Situation Sudden L sided weakness/drift, headache, eye pressure Background Background Information: Other recent surgical intervention for head bleed Assessment Alert and oriented. L side slightly weaker but pt and family say this is resolving rapidly Recommendation Neurosurg recs, Head CT Interventions Brief Summary of Interventions: Other Head CT Outcome Outcome: Remained in current unit Team Members Present Nurse: Ronda Carter Laney Sundborg Respiratory Care: Physician: Dr Gene Nieto RN --- End of Report --- Plan of Care - Quan Garcia RN - 07/30/2014 3:11 PM CDT [facility] Plan of Care Note Assessment: Neuro Status and Pain Plan: Continue to monitor pt's Neuro Status notifying MD of any significant changes accordingly, also continue to monitor and treat pt's pain appropriately Subjective: pt has complained of headache pain, also pt reports significant change in Neuro Status Objective: pt has complained of headache pain this shift, states that it is achy/pressure, has ratedhis pain to be as high as an 8/10, have administered PRN meds and has offered tolerable relief, please see MAR, pt had an episode of a neurological change this shift at approximately 1305 this shift, [facility] [employer] called with MD presence, staff came and assessed pt, upon initial assessment L side was weak, drooped, facial asymmetry noted with L side droop, pt had drift to note on LUE and L Pupil was sluggish to return, pt was AxOx4, stated that upon initial onset of SxS he experienced sudden headache, occularpressure and became diaphoretic, SxS appeared to have resided at approximately 1335, see [facility] [employer] note, pt has incision to top of head that is stapled, old drainage to note, drain was D/C'd this shift, at approximately 1200, just prior to [facility], pt has adequate amounts of urine via de la cruz, colostomy has small amount of soft stool to note, pt has been up and into the WC with assist of 2 and use of charis, to lerates well. --- End of Report --- Plan of Care - Luke Siegel - 07/30/2014 1:21 PM CDT [facility] Care Therapy Missed Visit Note [facility] attempted to see patient today for Massage Therapy. Unable to see patient for this reason: [facility] activated at 1:21pm. Will attempt again as soon as possible. Time: 4:14 PM Date: 07/30/2014 Report Completed by: Luke Siegel, COUNT INCLUDES THE [facility] Pager # [phone] Thank you for referring this pt to [facility]. --- End of Report --- Plan of Care - Karo Murray RN - 07/30/2014 7:51 AM CDT Problem: General Plan of Care Goal: Plan of Care Review The patient and/or their event representative will communicate an understanding of their plan of care. Outcome: Ongoing 07/30/14 0750 Coping/Psychosocial Response Interventions Plan of Care Reviewed with patient;spouse Plan of Care Progress progress toward functional goals is gradual Plan of Care - Aidee Forbes RN - 07/29/2014 11:10 PM CDT [facility] Nursing Transfer Note (To/From ICU / Progressive Care) Admission Date/Time: 07/28/2014 4:05 PM Time of transfer: 2134 Transfer from room #: SICU Accepting nursing unit: [facility] Valuables/belongings sent with patient?: Yes Dentures: No Glasses/Contacts: Glasses Hearing Aid: N/A Transported by: Bed Family notified of unit transfer and change in patients condition: Yes General condition of patient at time of transfer: A&0 X 4. Neuro/cms intact. Visual Effects Artist strong BUE. Denies pain or headache. at bedside. Pressure ulcer present: no Select criteria that may indicate need for P500 mattress: History of pressure ulcer or current presssure ulcer present Does patient need P500 mattress upon transfer? Yes Please order P500 mattress, if it is indicated. Need for continued central line assessed: N/A (Pneumococcal / Influenza immunization assessment needs to be completed prior to transfer if not already done.) Device detached from patient in Epic prior to transfer: N/A Report Completed by: Aidee Parks RN --- End of Report --- Plan of Care - Shantanu Fonseca RN - 07/29/2014 6:59 PM CDT Problem: Perioperative Period (Adult, Obstetrics) Intervention: Pressure Reduction Devices [facility] Plan of Care Note Assessment: skin integrity Plan: turn patient to preserve skin Subjective: pt awake and oriented. Makes needs for turns known. in room most of day assisting in cares. Multiple pillows used for elevation of extremities. Objective: skin intact and patient comfortable. --- End of Report --- Plan of Care - Mitch Kirkland - 07/29/2014 5:17 PM CDT HOSPITAL ENGINEERING FACULTY NOTE - The pt received Sacrament of the Sick (anointing) today. Fr. Mitch Kirkland, [facility] Plan of Care - Archana Pace - 07/29/2014 10:47 AM CDT [facility] Gmat Tutor Department Note Dye Colorist Formulator Notes: Initial visit with Jeff and family present at the bedside. Jeff shares he is doing well after surgery and hopes to transfer out of SICU today. Jeff & family are from [place] and Jeff is involved in his parish there. He would appreciate having the hospital steward/stewardess room come by to provide the sacrament of the sick. I informed him the hospital steward/stewardess room is not available today but may be in the hospital this evening, if not then definitely tomorrow morning. Interventions Offered: Introduction, supportive listening, blessing, update pt/family on steward/stewardess room availability. Plan: I have left a message for the hospital steward/stewardess room to see pt tonight (if the steward/stewardess room is in-house) or tomorrow for sure. Gmat Tutor remains available to pt and/or family for spiritual and emotional support asneeded or requested. Report Completed by: Archana Pace M.Div, [facility], Staff Dye Colorist Formulator --- End of Report --- Plan of Care - Jodi Ordonez RN - 07/29/2014 7:38 AM CDT Problem: General Plan of Care Goal: Plan of Care Review The patient and/or their event representative will communicate an understanding of their plan of care. Outcome: Ongoing 07/28/14 1855 07/29/14 0400 Coping/Psychosocial Response Interventions Plan of Care Reviewed with -- patient;family Referrals Interdisciplinary Rounds done with: provider -- Plan of Care Progress no change -- Plan of Care - Malika Maradiaga RN - 07/28/2014 6:58 PM CDT Problem: General Plan of Care Goal: Plan of Care Review The patient and/or their event representative will communicate an understanding of their plan of care. Outcome: Ongoing 07/28/14 8335 Coping/Psychosocial Response Interventions Plan of Care Reviewed with patient;family Referrals Interdisciplinary Rounds done with: provider Plan of Care Progress no change documented in this encounter Administered Medications Inactive Administered Medications - up to 3 most recent administrations Medication Order MAR Action Action Date Dose Rate Site atorvastatin (aka LIPITOR) tablet Given 08/01/2014 8:49 PM CDT 4 0 mg 40 mg 40 mg, Oral, DAILY - 1999, First dose on Sat07/28/14 at 2000, Until Discontinued Given 07/31/2014 8:17 PM CDT 40 mg Given 07/30/2014 8:46 PM CDT 40 mg bacitracin ointment Given 07/28/2014 8:05 PM CDT INTRA-OP, Starting on Sat07/28/14 at 1750, For 1 dose, Verify Route and Dose with Surgeon Prior to Administration baclofen (aka LIORESAL) tablet 20 mg Given 07/29/2014 2:19 PM CDT 20 mg 20 mg, Oral, TID, First dose on Sat07/29/14 at 1400, Until Discontinued baclofen (aka LIORESAL) tablet 20 mg Given 07/29/2014 2:27 PM CDT 20 mg 20 mg, Oral, ONCE, On Sat07/29/14 at 1430, For 1 dose, In addition to previously given 20mg to make total 40mg dose. baclofen (aka LIORESAL) tablet 40 mg Given 08/02/2014 1:23 PM CDT 40 mg 40 mg, Oral, TID, First dose (after last modification) on Sat07/29/14 at 2000, Until Discontinued Given 08/02/2014 8:12 AM CDT 40 mg Given 08/01/2014 8:48 PM CDT 40 mg ceFAZolin-dextrose (aka ANCEF) IV piggyback 2 Started 12:00 PM CDT 2 g g 2 g, Intravenous, Administer over 30 Minutes, Q8H (NON-STND), First dose on Sat07/29/14 at 0400, For 2 doses Started 07/29/2014 3:03 AM CDT 2 g dexamethasone (aka DECADRON) injection 1 0 mg Given 07/30/2014 4:47 PM CDT 10 mg 10 mg, Intravenous, ONCE, On Sat07/30/14 at 1403, For 1 dose dexamethasone (aka DECADRON) injection 4 mg Given 08/02/2014 8:12 AM CDT 4 mg 4 mg, Intravenous, Q6H, First dose on Sat07/30/14 at 1403, Until Discontinued Given 08/02/2014 2:43 AM CDT 4 mg Given 08/01/2014 9:29 PM CDT 4 mg dexamethasone (aka DECADRON) tablet 4 mg Given 08/02/2014 6:17 PM CDT 4 mg 4 mg, Oral, Q6H (NON-STND), First dose on Sat08/02/14 at 1200, Until Discontinued, IV TO PO PER P&T THERAPEUTIC/SUBSTITUTION POLICY Given 08/02/2014 1:00 PM CDT 4 mg diphenhydrAMINE (aka BENADRYL) caplet 25 mg Given 07/30/2014 3:17 AM CDT 25 mg 25 mg, Oral, Q4H PRN, Itching, Starting on Sat07/30/14 at 0305, Until Sat08/02/14 at 2036 docusate sodium (aka COLACE) capsule 100 mg Given 08/01/2014 9:00 AM CDT 100 mg 100 mg, Oral, BID, First dose on Sat07/28/14 at 2144, Until Discontinued, as stool-softener Given 07/31/2014 8:18 PM CDT 100 mg Given 07/31/2014 8:42 AM CDT 100 mg DULoxetine (aka CYMBALTA) delayed release Given 08/02/2014 8:12 AM CDT 80 mg capsule 80 mg 80 mg, Oral, DAILY, First dose on Sat07/28/14 at 1747, Until Discontinued Given 08/01/2014 9:00 AM CDT 80 mg Given 07/31/2014 8:42 AM CDT 80 mg famotidine (aka PEPCID) tablet 20 mg Given 08/02/2014 8:12 AM CDT 20 mg 20 mg, Oral, BID, First dose on Sat07/30/14 at 2000, Until Discontinued Given 08/01/2014 8:49 PM CDT 20 mg Given 08/01/2014 9:00 AM CDT 20 mg gabapentin (aka NEURONTIN) capsule 400 m g Given 08/02/2014 1:23 PM CDT 400 mg 400 mg, Oral, TID, First dose on Sat07/28/14 at 2000, Until Discontinued Given 08/02/2014 8:13 AM CDT 400 mg Given 08/01/2014 8:49 PM CDT 400 mg gelatin sponge with thrombin (GELFOAM Given 07/28/2014 7:00 PM C DT 2,500 Units PLUS) dressing 2,500 Units Topical, INTRA-OP, 1 dose, Starting on Sat07/28/14 at 2032, Until Sat07/28/14 at 1899 hydrALAZINE (aka APRESOLINE) tablet 25 m g Given 08/02/2014 2:44 PM CDT 25 mg 25 mg, Oral, Q6H PRN, SBP > 150, Starting on Sat07/29/14 at 2051, Until Sat08/02/14 at 2035, Caution: Look-alike, sound-alike medication. HYDROcodone-acetaminophen (aka NORCO) Given 08/02/2014 5:20 AM C DT 2 Tablets 5-325 MG tablet TABS 1-2 Tab 1-2 Tablet, Oral, Q4H PRN, Pain, Starting on Sat07/28/14 at 2025, Until Sat08/02/14 at 2035 Given 08/01/2014 6:05 PM CDT 2 Tablets Given 08/01/2014 9:13 AM CDT 2 Tablets HYDROmorphone (aka DILAUDID) injection 0 .5-1 mg Given 07/29/2014 9:00 PM CDT 1 mg 0.5-1 mg, Intravenous, Q1H PRN, Pain, Starting on Sat07/28/14 at 2025, Until Sat08/02/14 at 2035, Caution: Look-alike, sound-alike medication. Given 07/29/2014 4:12 PM CDT 1 mg Given 07/29/2014 2:15 PM CDT 1 mg insulin glargine (aka LANtus) injection 15 Given 08/02 1:00 PM CDT 15 Units Units 15 Units, Subcutaneous, DAILY AT NOON, First dose on Sat08/02/14 at 1200, Until Discontinued, DO NOT mix with other insulin or give IV. Hazardous waste disposal required. insulin lispro (aka humALOG) injection vial Given 07/13 1:24 PM CDT 2 Units 1-10 Units 1-10 Units, Subcutaneous, PRN BASED ON BLOOD SUGAR, Blood Sugar >, Starting on Sat07/29/14 at 0852, Blood Sugar less than 71 mg/dL treat for hypoglycemia and notify Endocrine Service, Blood Sugar <150 mg/dL give 0 units, Blood Sugar 151-200 mg/dL give 2 units, Blood Sugar 201-250 mg/dL give 4 units, Blood Sugar 251-300 mg/dL give 6 units, Blood Sugar 301-350 mg/dL give 8 units, Blood Sugar greater than 350 give 10 units Given 08/01/2014 9:56 PM CDT 4 Units Given 08/01/2014 6:06 PM CDT 2 Units labetalol (aka NORMODYNE) injection 10-2 0 mg Given 07/29/2014 4:12 PM CDT 10 mg 10-20 mg, Intravenous, Q4H PRN, SBP >, 150, Starting on Sat07/29/14 at 0543, Until Sat07/29/14 at 2052 levETIRAcetam (aka KEPPRA) tablet 1,000 mg Given 08/02/2014 1:00 PM CDT 1,000 mg 1,000 mg, Oral, Q12H (NON-STND), First dose on Sat07/31/14 at 0000, Until Discontinued, Caution: Look-alike, sound-alike medication. Given 08/02/2014 12:33 AM CDT 1,000 mg Given 08/01/2014 1:35 PM CDT 1,000 mg lidocaine-epinephrine 1-1:329839 % injec tion Given 07/28/2014 7:00 PM CDT 5 mL INTRA-OP, Starting on Sat07/28/14 at 1750, For 1 dose, Verify Route and Dose with Surgeon Prior to Administration LORazepam (aka ATIVAN) tablet 1 mg Given 08/02/2014 2:07 PM CDT 1 mg 1 mg, Oral, TID, First dose on Sat07/28/14 at 2000, Until Discontinued, Caution: Look-alike, sound-alike medication. Given 08/02/2014 8:13 AM CDT 1 mg Given 08/01/2014 8:49 PM CDT 1 mg metoPROLOL tartrate (aka LOPRESSOR) tablet Given 08/02/2014 8:13 AM CDT 12.5 mg 12.5 mg 12.5 mg, Oral, BID, First dose (after last modification) on 07/31/14 at 2000, Until Discontinued, Hold for SBP <105 Take with food Given 08/01/2014 8:50 PM CDT 12.5 mg Given 08/01/2014 8:59 AM CDT 12.5 mg metoPROLOL tartrate (aka LOPRESSOR) tablet 25 Given 8:42 AM CDT 25 mg mg 25 mg, Oral, BID, First dose on [place] 07/29/14 at 1100, Until Discontinued, Hold for SBP <105 Take with food Given 07/30/2014 8:46 PM CDT 25 mg Given 07/30/2014 8:08 AM CDT 25 mg NaCl 0.9 % infusion 1 L Started 08/01/2014 1:35 PM CDT 1 L 100 mL/hr 1 L, Intravenous, at 100 mL/hr, ONCE, On Sat08/01/14 at 1146, For 1 dose NaCl 0.9 % infusion 1,000 Rate/Dose Verify 07/29/2014 8:00 AM CDT 1 ,000 mL 100 mL/hr mL 1,000 mL, Intravenous, at 100 mL/hr, CONTINUOUS, Starting on Sat07/28/14 at 1744 Rate/Dose Verify 07/29/2014 7:00 AM CDT 1,000 mL 100 mL/hr Started 07/28/2014 10:47 PM CDT 1,000 mL 100 mL/hr NaCl 0.9 % infusion 1,000 Rate/Dose Verify 07/29/2014 6:00 PM CDT 1 ,000 mL 25 mL/hr mL 1,000 mL, Intravenous, at 25 mL/hr, CONTINUOUS, Starting on Sat07/29/14 at 1626 Rate/Dose Verify 07/29/2014 5:00 PM CDT 1,000 mL 25 mL/hr Started 07/29/2014 4:26 PM CDT 1,000 mL 25 mL/hr niCARdipine-NaCl 0.9% 20 Rate/Dose Change 07/29/2014 3:01 AM 2.5 mg/h r 25 mL/hr MG/200ML infusion CDT 2.5-15 mg/hr (25-150 mL/hr), Intravenous, TITRATE, Starting on Sat07/28/14 at 2027, Until [place] 07/29/14 at 0543, Range 2.5-15 mg/hour, titrate to maintain systolic BP< 150 mmHg., PACU & Post-op Rate/Dose Change 07/29/2014 12:29 AM CDT 2 mg/hr 20 mL/hr Started 07/28/2014 11:07 PM CDT 2.5 mg/hr 25 mL/hr oxidized cellulose (aka SURGICEL) pads 1 Pad Given 07/28/2014 8:18 PM CDT 1 Pad 1 Pad (1 Each), Topical, INTRA-OP, Starting on Sat07/28/14 at 2018, For 1 dose, Intra-op polyethylene glycol (aka MIRALAX) oral Given 08/01/2014 8:59 AM CDT 1 Packet powder 1 Packet 1 Packet (17 g), Oral, DAILY, First dose on Sat07/28/14 at 1744, Until Discontinued, Give daily while on narcotics. Do not give if ileus present. Given 07/31/2014 8:42 AM CDT 1 Packet Given 07/30/2014 8:08 AM CDT 1 Packet sennosides-docusate sodium (aka Given 08/01/2014 8:48 PM CDT 1 T ablet SENNA-S,SENNA PLUS) 8.6-50 MG tablet 1 T ab 1 Tablet, Oral, HS, First dose on Sat07/28/14 at 2100, Until Discontinued, as laxative/stimulant, stool-softening agent Given 07/31/2014 8:18 PM CDT 1 Tablet Given 07/30/2014 8:46 PM CDT 1 Tablet sodium chloride tablet 2 g Given 08/02/2014 1:23 PM CDT 2 g 2 g, Oral, TID, First dose on Sat08/01/14 at 1400, Until Discontinued Given 08/02/2014 8:12 AM CDT 2 g Given 08/01/2014 8:49 PM CDT 2 g thrombin-gelatin (aka SURGIFLO) matrix 1 Given 07/28/2014 7: 00 PM CDT 1 Syringe Syringe 1 Syringe, Topical, INTRA-OP, Starting on Sat07/28/14 at 204, For 1 dose, For Topical Use Only Hazardous waste disposal required., Intra-op documented in this encounter Active and Recently Administered Medications Times are shown in CDT. Scheduled Medication Order 07/31/2014 08/01/2014 08/02/2014 atorvastatin (aka LIPITOR) tablet 40 mg (CANCELED) 201 7 (Given - Provider: Carlene Silver RN) 204 (Given - Provider: Carlene Silver RN) 40 mg, Oral, STATIN - DAILY, First dose on Sat07/28/14 at 2000, Until Discontinued baclofen (aka LIORESAL) tablet 40 mg (CANCELED) 0841 ( Given - Provider: Priti Hickey RN)1402 (Given - Provider: Priti Hickey RN)2018 (Given - Provider: Carlene Silver RN) 0900 (Given - Provider: Mónica Neville i, RN)1539 (Given - Provider: Mónica Saldana RN)2048 (Given - Provider: Carlene Silver RN) 0812 (Given - Provider: Priti clark RN)1323 (Given - Provider: Priti Hickey RN) 40 mg, Oral, TID, First dose on Sat07/29/14 at 2000, Until Disco ntinued dexamethasone (aka DECADRON) injection 4 mg (CANCELED) 0259 (Given - Provider: Loretta Osman RN)0800 (Given - Provider: Priti Hickey RN)1400 (Given - Provider: Priti Hickey RN)2019 (Given - Provider: Carlene Silver RN) 0225 (Given - Provider: Cortney Montez RN)0859 (Given - Provider: Mónica Saldana RN)1446 (Given - Provider: Mónica Saldana RN)2129 (Given - Provider: Carlene Silver RN) 0243 (Given - Provider: Stella kathleen RN)0812 (Given - Provider: Priti Hickey RN) 4 mg, IV, Q6H, First dose on Sat07/30/14 at 1403, Until Disconti nued dexamethasone (aka DECADRON) tablet 4 mg 1300 (Given - Provider: Priti Hickey RN)1817 (Given - Provider: Aidee Parks RN) 4 mg, Oral, Q6H (NON-STND), First dose o n Sat08/02/14 at 1200, Until Discontinued docusate sodium (aka COLACE) capsule 100 mg (CANCELED) 0842 (Given - Provider: Priti Hickey RN)2017 (Given - Provider: Carlene Silver RN) 0900 (Given - Provider: Mónica Saldana RN) 100 mg, Oral, BID, First dose on Sat07/28/14 at 2144, Until Disc ontinued DULoxetine (aka CYMBALTA) delayed release capsule 80 m g (CANCELED) 0842 (Given - Provider: Priti Hickey RN) 0900 (Given - Provider: Mónica Neville i, RN) 0812 (Given - Provider: Priti clark RN) 80 mg, Oral, DAILY, First dose on Sat07/28/14 at 1747, Until Dis continued famotidine (aka PEPCID) tablet 20 mg 0842 (Given - Pro vider: Priti Hickey RN)2019 (Given - Provider: Carlene Silver RN) 0900 (Given - Provider: Mónica Saldana RN)2048 (Given - Provider: Carlene Silver RN) 0812 (Given - Provider: Priti Hickey RN) 20 mg, Oral, BID, First dose on Sat07/30/14 at 2000, Until Disco ntinued gabapentin (aka NEURONTIN) capsule 400 mg (CANCELED) 0 841 (Given - Provider: Priti Hickey RN)1402 (Given - Provider: Priti Hickey RN)2017 (Given - Provider: Carlene Silver RN) 0900 (Given - Provider: Mónica Saldana RN)1538 (Given - Provider: Mónica Saldana RN)204 (Given - Provider: Carlene Silver RN) 0813 (Given - Provider: Priti clark RN)1323 (Given - Provider: Priti Hickey RN) 400 mg, Oral, TID, First dose on Sat07/28/14 at 2000, Until Disc ontinued insulin glargine (aka LANtus) injection 15 Units (CANCELED) 1300 (Given - Provider: Priti Hickey RN) 15 Units, SC, NOON, First dose on Sat08/02/14 at 1200, Until Dis continued levETIRAcetam (aka KEPPRA) tablet 1,000 mg 0040 (Given - Provider: Loretta Osman RN)1227 (Given - Provider: Priti Hickey RN)2348 (Given - Provider: Cortney Montez RN) 1335 (Given - Provider: Mónica Saldana RN) 0033 (Given - Provider: Stella Parra RN)1300 (Given - Provider: Priti iHckey RN) 1,000 mg, Oral, Q12H (NON-STND), First d ose on Sat07/31/14 at 0000, Until Discontinued LORazepam (aka ATIVAN) tablet 1 mg (CANCELED) 0842 (Gi lore - Provider: Priti Hickey RN)1402 (Given - Provider: Priti Hickey RN)2018 (Given - Provider: Carlene Silver RN) 0900 (Given - Provider: Mónica Neville i, RN)153 (Given - Provider: Mónica Saldana RN)204 (Given - Provider: Carlene Silver RN) 0813 (Given - Provider: Priti clark RN)1407 (Given - Provider: Priti Hickey RN) 1 mg, Oral, TID, First dose on Sat07/28/14 at 2000, Until Discon tinued metoPROLOL tartrate (aka LOPRESSOR) tablet 12.5 mg 201 8 (Given - Provider: Carlene Silver RN) 0859 (Given - Provider: Mónica Neville i, RN)2049 (Given - Provider: Carlene Silver RN) 08 (Given - Provider: Priti clark RN) 12.5 mg, Oral, BID, First dose on Sat07/31/14 at 2000, Until Dis continued metoPROLOL tartrate (aka LOPRESSOR) tablet 25 mg ([facility]) 0842 (Given - Provider: Priti Hickey RN) 25 mg, Oral, BID, First dose on [place] 07/29/14 at 1100, Until Disco ntinued NaCl 0.9 % infusion 1 L (COMPLETED) 1335 (Started - Provider: Mónica Saldana RN) 1 L, at 100 mL/hr, IV, ONCE, 1 dose, 08/01/14 at 1146 polyethylene glycol (aka MIRALAX) oral powder 1 Packet (CANCELED) 0842 (Given - Provider: Priti Hickey RN) 0859 (Given - Provider: Mónica Neville i, RN) 0800 (Refused - Provider: Priti leigh RN) 1 Packet (17 g), Oral, DAILY, First dose on Sat07/28/14 at 1744, Until Discontinued sennosides-docusate sodium (aka SENNA-S,SENNA PLUS) 8. 6-50 MG tablet 1 Tab 2017 (Given - Provider: Carlene Silver RN) 2047 (Given - Provider: Carlene Silver RN) 1 Tab, Oral, HS, First dose on Sat07/28/14 at 2100, Until Discon tinued sodium chloride tablet 2 g 153 (Given - Provider: Mónica Saldana RN)2048 (Given - Provider: Carlene Silver RN) 0812 (Given - Provider: Priti Hickey RN)1323 (Given - Provider: Priti Hickey RN) 2 g, Oral, TID, First dose on 08/01/14 at 1400, Until Discont inued PRN Medication Order 07/31/2014 08/01/2014 08/02/2014 hydrALAZINE (aka APRESOLINE) tablet 25 mg (CANCELED) 1444 (Given - Provider: Priti Hickey RN) 25 mg, Oral, Q6H PRN, Starting Catalina at 2052, Until Discontinued, SBP > 150 HYDROcodone-acetaminophen (aka NORCO) 5-325 MG tablet TABS 1-2 Tab 0853 (Given - Provider: Priti Hickey RN) 0225 (Given - Provider: Cortney alfaro RN)0913 (Given - Provider: Mónica Saldana RN)1805 (Given - Provider: Carlene Silver RN) 0520 (Given - Provider: Stella kathleen RN) 1-2 Tab, Oral, Q4H PRN, Starting 07/28/14 at 2026, Until Discontinued, Pain insulin lispro (aka humALOG) injection vial 1-10 Units (CANCELED) 0954 (Given - Provider: Priti Hickey RN)1402 (Given - Provider: Priti Hickey RN)1815 (Given - Provider: Carlene Silver RN - Comment: FSG is [phone] (Given - Provider: Carlene Silver RN - Comment: fsg IS 220) 1259 (Given - Provider: Kate Ford RN)1806 (Given - Provider: Carlene Silver RN - Comment: FSG is [phone] (Given - Provider: Carlene Silver RN - Comment: FSG is 224) 1324 (Given - Provider: Priti Hickey RN) 1-10 Units, SC, PRN BASED ON BLOOD SUGAR , Starting Catalina 07/29/14 at 0852, Until Discontinued, Blood Sugar > documented in this encounter
--- OUTSIDE RECORDS SUMMARY | 2022-06-20 02:27 | XMS_ITS | Encounter Summary ---
:1945 Author [facility] Address [address], [place] [address] Care Team Providers Name Role Phone Unavailable Primary Care Provider Unavailable Reason for Visit Procedure/Equipment (Routine) - Incomplete Specialty Diagnoses / Procedures Referred By Contact Refer red To Contact Procedures Jodi Aguila PA-C NM BONE IMAGING (SPECT) [address] [place] [address] Referral ID Status Reason Start Date Expiration Date Visits V isits Requested Authorized [id number] Incomplete 06/07/2014 6 6 Encounter Details Date Type Department Care Team Description 06/11/2014 Imaging [facility] Jodi Aguila PA-C [address] [facility] [address] [place], [place] [id number] [place] [address] [phone] (Wo rk) Social History Tobacco Use Types [...] Name Priority Date/Time Associated Diagnosis Comme nts NM BONE SPECT/CT Routine 06/11/2014 2:01 PM Resul ts for this CDT procedure are i n the results section. documented in this encounter Results NM BONE IMAGING (SPECT) (06/11/2014 2:01 PM CDT) Anatomical Region Laterality Modality Skeletal Nuclear Medicine Specimen (Source) Anatomical Collection Method Collection Time Re ceived Time Location / / Volume Laterality 06/11/2014 2:01 PM CDT Narrative 06/11/2014 3:07 PM CDT NM BONE IMAGING (SPECT) 06/11/2014 2:01 PM INDICATION: Back pain. TECHNIQUE: 26 mCi technetium-99m MDP wer e injected intravenously. Delayed planar images of the cervical, thoracic, and lumbar spine were obtained, as well as additional SPECT/CT images of t he lower thoracic and lumbar spine for increased sensitivity and anatomic l ocalization. COMPARISON: MRIs from 12/16/2013 and are reviewed. FINDINGS: Moderately increased delayed r adiotracer accumulation at the L3-L4 and L5-S1 interspaces. Mild delaye d radiotracer accumulation at the right T12-L1 and bilateral L1-L2 facets. Bilateral kidney cysts. IVC filter. Trace calcified aortoiliac ather osclerosis. LLQ end colostomy. Scattered colonic diverticula. Procedure Note Jono Michelle MD - 06/11/2014Formatti ng of this note might be different from the original. NM BONE IMAGING (SPECT) 06/11/2014 2:01 PM INDICATION: Back pain. TECHNIQUE: 26 mCi technetium-99m MDP wer e injected intravenously. Delayed planar images of the cervical, thoracic, and lumbar spine were obtained, as well as additional SPECT/CT images of t he lower thoracic and lumbar spine for increased sensitivity and anatomic l ocalization. COMPARISON: MRIs from 12/16/2013 and are reviewed. FINDINGS: Moderately increased delayed r adiotracer accumulation at the L3-L4 and L5-S1 interspaces. Mild delaye d radiotracer accumulation at the right T12-L1 and bilateral L1-L2 facets. Bilateral kidney cysts. IVC filter. Trace calcified aortoiliac ather osclerosis. LLQ end colostomy. Scattered colonic diverticula. Jodi RUSSELL documented in this encounter Visit Diagnoses Not on filedocumented in this encounter
--- OUTSIDE RECORDS SUMMARY | 2022-06-20 02:27 | XMS_ITS | Encounter Summary ---
:1945 Author Organization [facility] Address [address] [address] Care Team Providers Name Role Phone Unavailable Primary Care Provider Unavailable Reason for Visit Reason Onset Date Comments Refill 06/03/2014 gabapentin Encounter Details Date Type Department Care Team Description 06/03/2014 Refill [facility] [address] , Refill (gabapentin) Interventional Pain DO Management [address] [place] [address] [phone] (Wo rk) Social History Tobacco Use Types Packs/Day Years Used Date Smoking Tobacco: Never Smokeless Tobacco: Never Alcohol Use Standard Drinks/Week Comments No 0 (1 standard drink = 0.6 oz pure alcoho l) Sex Assigned at Date Recorded Male 08/06/2021 5:59 PM CDT documented as of this encounter Nursing Notes Charles Zapata RN - 06/03/2014 4:41 PM CDT Received electronic refill request for gabapentin 400mg rx from [facility], [place]. Therapist Physical sent refill refusal with notation this was already signed 06/03 for 7 month quantity. This is a duplicate request. 06/02/14 Dr. Cohen last rx'd gabapentin (AKA NEURONTIN) 400 MG capsule Sig : Take 1 Cap by mouth three times a day. Qty# 90 Cap Refill:6. documented in this encounter Plan of Treatment Not on filedocumented as of this encounter Visit Diagnoses Not on filedocumented in this encounter
--- OUTSIDE RECORDS SUMMARY | 2022-06-20 02:27 | XMS_ITS | Encounter Summary ---
:1945 [facility] Address [address] [address] Care Team Providers Name Role Phone Unavailable Primary Care Provider Unavailable Encounter Details Date Type Department Care Team Description 07/27/2014 Orders Only External to Alfonso Neff MD [address] [place] [phone] (Wo rk) Social History Tobacco [...] Date/Time Associated Diagnosis Comme nts OUTSIDE IMAGING 07/27/2014 12:00 AM Resul ts for this CDT procedure are i n the results section. documented in this encounter Results OUTSIDE IMAGING (07/27/2014 12:00 AM CDT) Anatomical Region Laterality Modality Other Specimen (Source) Anatomical Location Collection Method / Collectio n Time Received Time / Laterality Volume 07/27/2014 Narrative This result has an attachment that is no t available. RAD_1 documented in this encounter Visit Diagnoses Not on filedocumented in this encounter
--- OUTSIDE RECORDS SUMMARY | 2022-06-20 02:27 | XMS_ITS | Encounter Summary ---
:1945 Author Organization [facility] Address [address] [address] Care Team Providers Name Role Phone Unavailable Primary Care Provider Unavailable Reason for Visit Procedure/Equipment (Routine) - Closed Specialty Diagnoses / Procedures Referred By Contact Refer red To Contact Procedures Garry Neff MD MR THORACIC SPINE [address] WITH/WITHOUT CONTRAST [place] [address] Referral ID Status Reason Start Date Expiration Date Visits Requ ested Visits Authorized [id number] Closed 04/20/2013 1 1 Encounter Details Date Type Department Care Team Description 12/16/2013 Imaging [facility] Specialty Alfonso Neff, Screening for Center MRI nephropathy (Primary [address] Dx) [place] [address] [place] [address] [phone] (Wo rk) Social History Tobacco Use Types [...] Associated Diagnosis Comme nts CREATININE/GFR, WB Routine 12/16/2013 2:04 PM Screening for Re sults for this POC SATURATOR nephropathy procedure are i n the results section. MR THORACIC SPINE Routine 12/16/2013 1:10 PM Resu lts for this W/WO IV CONT SATURATOR procedure are i n the results section. documented in this encounter Results CREATININE/GFR, WB POC (12/16/2013 2:04 PM SATURATOR) P athologist Signature Creat Whole 1.0 0.66 - [facility] Blood 1.25 mg/dl LAB[facility]ATOR[facility] GFR, Estimated >60.0 >60 [facility] ml/min/1.7 [facility]ATORIES 3m2 GFR, Est., If >60.0 >60 [facility] Black ml/min/1.7 LAB[facility]ATORIES 3m2 Specimen Anatomical Collection Method Collection Time Receive d Time (Source) Location / / Volume Laterality 12/16/2013 2:04 PM 4 2:51 SATURATOR PM SATURATOR Narrative [facility] - 12/16/2013 4:[address] Performed at [address] [facility], [address] [place] [id number] Barb Shelley MD LAB_1 Performing Organization Address City/State/ZIP Code Phon e Number [facility] [phone] MR THORACIC SPINE WITH/WITHOUT CONTRAST (12/16/2013 1:10 PM SATURATOR) Anatomical Region Laterality Modality Spine, T-Spine, L-Spine, C-Spine, Skeletal Magnetic Resonance Specimen (Source) Anatomical Collection Method Collection Time Re ceived Time Location / / Volume Laterality 12/16/2013 1:21 PM SATURATOR Narrative 12/16/2013 3:08 PM SATURATOR [facility] MRI THORACIC SPINE WITHOUT AND WITH CONT RAST 12/16/2013 1:10 PM INDICATION: Evaluate for recurrent tumor . TECHNIQUE: Performed before and after IV gadolinium. CONTRAST: 20 mL Magnevist. The estimated GFR is greater than 60. COMPARISON: 04/20/2013 and 11/13/2012. FINDINGS: Again identified is the appare nt postop spinal cord defect extending from the T2-T3 disc space to t he level of the mid T5 vertebral body. Both proximal and distal to the de fect, the margins of the thoracic cord are dorsally positioned and potenti ally adherent to the posterior dura of the thecal sac. Also again noted is some fluid accumulation within the conus medullaris compatible with a small syrinx. These findings are all stable from the November 2012 exam. No re sidual or recurrent intraspinal tumor is identified on this study. Marro w signal changes in the upper thoracic vertebrae compatible with previ ous radiation therapy. There is some lobulated extraspinal tiss ue along the midline posterior surgical resection tract which demonstra jeremy heterogeneous signal and peripheral gadolinium enhancement. The l argest lobulation measures 28 x 19 x 14.5 mm on today's exam. This shows a mild interval size progression from 04/20/2013 and 11/13/2012. While this p resumably represents a mildly enlarging postoperative seroma, slowly g rowing recurrent tumor might also be considered. Extensive postop changes in the upper th oracic region including multilevel laminectomies. There is also multilevel disc degenerative change. CONCLUSION: 1. The appearance of the spinal canal is unchanged from previous exams. No recurrent intraspinal tumor is identifie d. 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 2. Lobulated heterogeneously signaling e xtraspinal tissue is seen along the surgical tract in the dorsal midline up per thoracic region. This is indeterminate; while maturing seroma is most likely, localized extraspinal tumor recurrence must be another conside ration. Procedure Note Kenneth Estrada MD - 12/16/2013Form atting of this note might be different from the original. [facility] MRI THORACIC SPINE WITHOUT AND WITH CONT RAST 12/16/2013 1:10 PM INDICATION: Evaluate for recurrent tumor . TECHNIQUE: Performed before and after IV gadolinium. CONTRAST: 20 mL Magnevist. The estimated GFR is greater than 60. COMPARISON: 04/20/2013 and 11/13/2012. FINDINGS: Again identified is the appare nt postop spinal cord defect extending from the T2-T3 disc space to t he level of the mid T5 vertebral body. Both proximal and distal to the de fect, the margins of the thoracic cord are dorsally positioned and potenti ally adherent to the posterior dura of the thecal sac. Also again noted is some fluid accumulation within the conus medullaris compatible with a small syrinx. These findings are all stable from the November 2012 exam. No re sidual or recurrent intraspinal tumor is identified on this study. Marro w signal changes in the upper thoracic vertebrae compatible with previ ous radiation therapy. There is some lobulated extraspinal tiss ue along the midline posterior surgical resection tract which demonstra jeremy heterogeneous signal and peripheral gadolinium enhancement. The l argest lobulation measures 28 x 19 x 14.5 mm on today's exam. This shows a mild interval size progression from 04/20/2013 and 11/13/2012. While this p resumably represents a mildly enlarging postoperative seroma, slowly g rowing recurrent tumor might also be considered. Extensive postop changes in the upper th oracic region including multilevel laminectomies. There is also multilevel disc degenerative change. CONCLUSION: 1. The appearance of the spinal canal is unchanged from previous exams. No recurrent intraspinal tumor is identifie d. 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 2. Lobulated heterogeneously signaling e xtraspinal tissue is seen along the surgical tract in the dorsal midline up per thoracic region. This is indeterminate; while maturing seroma is most likely, localized extraspinal tumor recurrence must be another conside ration. Garry Neff MD RAD MRI documented in this encounter Visit Diagnoses Diagnosis Screening for nephropathy - Primary documented in this encounter
--- OUTSIDE RECORDS SUMMARY | 2022-06-20 02:27 | XMS_ITS | Encounter Summary ---
:1945 Author [facility] Address [address], [place] [address] Care Team Providers Name Role Phone Unavailable Primary Care Provider Unavailable Reason for Referral Procedure/Equipment (Routine) - Closed Specialty Diagnoses / Procedures Referred By Contact Refer red To Contact Procedures Garry Neff MD MR THORACIC SPINE [address] WITH/WITHOUT CONTRAST [place], [place] [address] Referral ID Status Reason Start Date Expiration Date Visits Requ ested Visits Authorized [id number] Closed 12/16/2013 03/17/2015 1 1 CALKER Reason for Visit Reason Comments Revisit F/u Encounter Details Date Type Department Care Team Description 12/16/2013 Office Visit Specialty Center Garry Neff Epsalome ndymoma (Primary [address] [facility] X, Dx) [address] [place] [address] [place], [place] [phone] (Wo rk) Social History Tobacco Use Types Packs/Day Years Used Date Smoking Tobacco: Never Smokeless Tobacco: Never Alcohol Use Standard Drinks/Week Comments No 0 (1 standard drink = 0.6 oz pure alcoho l) Sex Assigned at Date Recorded Male 08/06/2021 5:59 PM CDT documented as of this encounter Last Filed Vital Signs Vital Sign Reading Time Taken Comments Blood Pressure 142/75 12/16/2013 1:18 PM WOOD CALKER Pulse 81 12/16/2013 1:18 PM WOOD CALKER Temperature 35.9 ??C (96.6 ??F) 12/16/2013 1:18 PM WOOD CALKER Respiratory Rate - - Oxygen Saturation - - Inhaled Oxygen Concentration - - Weight - - Height - - Body Mass Index - - documented in this encounter Patient Instructions Patient InstructionsSelene Johnson RN - 12/16/2013 1:45 PM CST Neurosurgery/Spine Clinic Patient Instructions Please address with Dr. Cohen -to change your Lyrica to Topamax due to weight gain. You will be scheduled for a thoracic MRI- in 9 months prior to your appointment. Follow up with Dr. Garry Neff in 9 months. Please call in 6 months to schedule. If tests were ordered, they will be [...] understanding. Please call the Neurosurgery/Spine Clinic at [phone] with any further questions or concerns. 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 On May 09, 2010 we replaced the catheter of the baclofen pump due to meningitis. On May 29, 2010 we removed the baclofen pump and catheter and pt was then placed on IV abxfor 10 days following the procedure. Today, Jeff c/o persistent bilateral low back pain rated 4/10. His pain is present all of the time, but he denies any leg pain. He has been doing physical therapy once weekly which seems to help. He denies complaints of spasticity issues; he is currently taking baclofen and Zanoflex for relief. Dr. Cohen is managing his pain medications. He has a f/u visit scheduled with him to discuss a possible VAN. Physical Examination: BP 142/75 Pulse 81 Temp(Src) 96.6 ??F (35.9 ??C) (Tympanic) ?? General: in no acute distress. Alert and oriented x 3. In wheelchair. ?? HEENT: head normocephalic and atraumatic. ?? Neurological: CN II-XII grossly intact, speech clear and fluent in character and contact. ?? Resp: Normal respirations ?? Psych: appropriate affect and mood Imaging Studies: Thoracic MRI: The appearance of the spinal canal is unchanged from previous exams. No recurrent intraspinal tumor is identified. 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 Lobulated heterogeneously signaling extraspinal tissue is seen along the surgical tract in the dorsal midline upper thoracic region. This is indeterminate; while maturing seroma is most likely, localized extraspinal tumor recurrence must be another consideration. 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 No evidence of recurrence. Plan We will extend Jeff's follow-up MRI interval to 9 months at this time since he had no evidence of tumor recurrence on today's MRI. We recommend that Jeff ask Dr. Cohen about switching his Lyrica to Topamax, as he c/o recent weight gain from the Lyrica. Jeff verbalizes understanding and states no further questions at this time. The plan of care was developed in conjunction with Dr Neff who also saw and evaluated the patient.Patient was instructed to follow up in 9 months or sooner if symptoms change, worsen, or if questions arise. Cristine Mir PA-C Neurosurgery Total time spent with the patient was 15 minutes, of which over 50% was spent on counseling. CALKER documented in this encounter Plan of Treatment [...]
--- OUTSIDE RECORDS SUMMARY | 2022-06-20 02:27 | XMS_ITS | Encounter Summary ---
:1945 Author Organization [facility] Address [address] [place] [address] Care Team Providers Name Role Phone Unavailable Primary Care Provider Unavailable Encounter Details Date Type Department Care Team Description 05/06/2014 Orders Only External to Alfonso Neff MD [address] [place] [phone] (Wo rk) Social History Tobacco [...] Date/Time Associated Diagnosis Comme nts OUTSIDE IMAGING 05/06/2014 12:00 AM Resul ts for this CDT procedure are i n the results section. documented in this encounter Results OUTSIDE IMAGING (05/06/2014 12:00 AM CDT) Anatomical Region Laterality Modality Other Specimen (Source) Anatomical Location Collection Method / Collectio n Time Received Time / Laterality Volume 05/06/2014 Narrative This result has an attachment that is no t available. RAD_1 documented in this encounter Visit Diagnoses Not on filedocumented in this encounter
--- OUTSIDE RECORDS SUMMARY | 2022-06-20 02:27 | XMS_ITS | Encounter Summary ---
:1945 Author Organization [facility] Address [address] [address] Care Team Providers Name Role Phone Unavailable Primary Care Provider Unavailable Reason for Visit Procedure/Equipment (Routine) - Incomplete Specialty Diagnoses / Procedures Referred By Contact Refer red To Contact Procedures Jodi Aguila PA-C [facility] BONE IMAGING (SPECT) [address] [place] [address] Referral ID Status Reason Start Date Expiration Date Visits V isits Requested Authorized [id number] Incomplete 06/07/2014 6 6 Encounter Details Date Type Department Care Team Description 06/11/2014 Imaging [facility] Jodi Aguila PA-C 640 [facility] [address] [place], [place] [id number] [place] [id number] [phone] (Wo rk) Social History Tobacco Use Types [...]
--- OUTSIDE RECORDS SUMMARY | 2022-06-20 02:27 | XMS_ITS | Encounter Summary ---
:1945 Author Organization [employer] Address [address] [address] Care Team Providers Name Role Phone Unavailable Primary Care Provider Unavailable Reason for Visit Reason Comments Refill Encounter Details Date Type Department Care Team Description 03/31/2014 Refill [facility] 401 Zelalem Cohen, DO Refill Interventional Pain Management [address] [place] [address] [place] [address] [phone] Social History Tobacco Use Types Packs/Day Years Used Date Smoking Tobacco: Never Smokeless Tobacco: Never Alcohol Use Standard Drinks/Week Comments No 0 (1 standard drink = 0.6 oz pure alcoho l) Sex Assigned at Date Recorded Male 08/06/2021 5:59 PM CDT documented as of this encounter Nursing Notes Loree Garcia RN - 04/01/2014 2:12 PM CDT Rx signed Zelalem Cohen MD - 04/01/2014 1:[address] Yes fine [address] Benito Cohen Loree Garcia RN - 04/01/2014 8:48 AM CDT Is provider will to refill? Spoke with - he had an L 4/5 VAN at [facility] in [place] last week per Dr. Neff's orders. Was somewhat helpful. Wants to stay at the 400 mg TID dose- tolerating well w/o side effects. Per 03/02 refill: Titrate by 100mg every 3 days working up to 400mg tid Spoke with - he has not noticed much improvement in his pain versus being on the Lyrica. Denies side effects. Does provider want to adjust dose for his refill? documented in this encounter Plan of Treatment Not on filedocumented as of this encounter Visit Diagnoses Not on filedocumented in this encounter
--- OUTSIDE RECORDS SUMMARY | 2022-06-20 02:27 | XMS_ITS | Encounter Summary ---
:1945 Author Organization [facility] Address [address] [address] Care Team Providers Name Role Phone Unavailable Primary Care Provider Unavailable Reason for Visit Reason Onset Date Comments RESULTS, TEST 06/21/2014 Encounter Details Date Type Department Care Team Description 06/21/2014 [facility] 401 Garry Neff MD RESULTS, TEST NeuroSurgery [address] [place] [address] [place] [address] [phone] Social History Tobacco Use Types Packs/Day Years Used Date Smoking Tobacco: Never Smokeless Tobacco: Never Alcohol Use Standard Drinks/Week Comments No 0 (1 standard drink = 0.6 oz pure alcoho l) Sex Assigned at Date Recorded Male 08/06/2021 5:59 PM CDT documented as of this encounter Nursing Notes Cristy Rodrigues RN - 06/21/2014 3:53 PM CDT Spoke with pt's , see phone encounter dated 06/16 Cristy Rodrigues RN 06/21/2014, 3:54 PM Jase Antonio - 06/21/2014 10:08 AM CDT What test are you calling about: Bone spect scan Who ordered it: Jodi Smith Where was the test done: [facility] When did you have it done: 06/11 Is it okay to leave detailed message on your voicemail? Yes Pt's stated she called last week and haven't heard back yet from care team about results. documented in this encounter Plan of Treatment Not on filedocumented as of this encounter Visit Diagnoses Not on filedocumented in this encounter
--- OUTSIDE RECORDS SUMMARY | 2022-06-20 02:27 | XMS_ITS | Encounter Summary ---
:1945 Author Organization [facility] Address [address] [address] Care Team Providers Name Role Phone Unavailable Primary Care Provider Unavailable Reason for Visit Reason Onset Date Comments Refill 06/02/2014 gabapentin Encounter Details Date Type Department Care Team Description 06/02/2014 [facility] 401 Zelalem Cohen , Refill (gabapentin) Interventional Pain DO Management [address] [place] [phone] Social History Tobacco Use Types Packs/Day Years Used Date Smoking Tobacco: Never Smokeless Tobacco: Never Alcohol Use Standard Drinks/Week Comments No 0 (1 standard drink = 0.6 oz pure alcoho l) Sex Assigned at Date Recorded Male 08/06/2021 5:59 PM CDT documented as of this encounter Nursing Notes Loree Garcia RN - 06/03/2014 8:57 AM CDT Rx signed and patient notified, appt for 06/10cancelled as patient is seeing Neff Zelalem Cohen MD - 06/02/2014 4:41 PM CDT Fine for neurontin no change in sig, one month with [address] Benito Cohen Yazmin Montoya - 06/02/2014 4:04 PM CDT Pt calling requesting status of refill request. Loree Garcia RN - 06/02/2014 2:37 PM CDT Is provider willing to refill- last Rx dated 04/01 with 1 refill Per 01/26 OV: Assessment: 1. SCI 2. Back pain 3. Paraplegia 4. Rectal pain Plan of Care: 1. D/c norflex 2. No change in baclofen, refilled 3. No change in tizanidine, refilled 4. No change in cymbalta, refilled 5. Talked with [facility] re: compounded cream, no longer being covered by his insurance and this was helping with pain 6. Taper off lyrica, once off pt will call, consider starting neurontin 7. Tens unit, recommended with helping, needs to f/u with PT for educations, impaired sensation, will try along low back 8. No injections Asia Dwyer - 06/02/2014 10:53 AM CDT Pt would like to get enough medication until appt on 06/10. Please advise Refill request: Medication: gabapentin (AKA NEURONTIN) 400 MG capsule 90 Cap 1 04/01/2014 Patient Sig : Take 1 Cap by mouth three times a day. Dispense: 10 tab Date of last Refill: 04/01/14 documented in this encounter Plan of Treatment Not on filedocumented as of this encounter Visit Diagnoses Not on filedocumented in this encounter
--- OUTSIDE RECORDS SUMMARY | 2022-06-20 02:27 | XMS_ITS | Encounter Summary ---
:1945 Author Organization [facility] Address [address] [address] Care Team Providers Name Role Phone Unavailable Primary Care Provider Unavailable Reason for Visit Reason Onset Date Comments Refill 04/06/2014 baclofen Encounter Details Date Type Department Care Team Description 04/06/2014 [facility] 401 Zelalem Cohen , Refill (baclofen) Interventional Pain DO Management [address] [place] [phone] (Wo rk) Social History Tobacco Use Types Packs/Day Years Used Date Smoking Tobacco: Never Smokeless Tobacco: Never Alcohol Use Standard Drinks/Week Comments No 0 (1 standard drink = 0.6 oz pure alcoho l) Sex Assigned at Date Recorded Male 08/06/2021 5:59 PM CDT documented as of this encounter Nursing Notes Loree Garcai RN - 04/06/2014 2:03 PM CDT His mail order Rx is delayed in getting to him- he is out of medication today. Needs a 1 month supply to local pharmacy to cover him until his mail order Rx arrives. Rx signed Asia Dwyer - 04/06/2014 11:35 AM CDT Pt is out today. Refill request: Medication: baclofen (AKA LIORESAL) 20 MG tablet 180 Tab 3 01/26/2014 Patient Sig : Take 1 Tab by mouth three times a day. Dispense:180 tab Date of last Refill: 01/26/14 documented in this encounter Plan of Treatment Not on filedocumented as of this encounter Visit Diagnoses Not on filedocumented in this encounter
--- OUTSIDE RECORDS SUMMARY | 2022-06-20 02:27 | XMS_ITS | Encounter Summary ---
:1945 Author Organization [facility] Address [address] [place] [address] Care Team Providers Name Role Phone Unavailable Primary Care Provider Unavailable Encounter Details Date Type Department Care Team Description 03/23/2014 Orders Only External to Alfonso Neff MD [address] [place] [phone] (Wo rk) Social History Tobacco [...] Date/Time Associated Diagnosis Comme nts OUTSIDE IMAGING 03/23/2014 12:00 AM Resul ts for this CDT procedure are i n the results section. documented in this encounter Results OUTSIDE IMAGING (03/23/2014 12:00 AM CDT) Anatomical Region Laterality Modality Other Specimen (Source) Anatomical Location Collection Method / Collectio n Time Received Time / Laterality Volume 03/23/2014 Narrative This result has an attachment that is no t available. RAD_1 documented in this encounter Visit Diagnoses Not on filedocumented in this encounter
--- OUTSIDE RECORDS SUMMARY | 2022-06-20 02:27 | XMS_ITS | Encounter Summary ---
:1945 Author Organization [employer] Address [address] [address] Care Team Providers Name Role Phone Unavailable Primary Care Provider Unavailable Reason for Visit Reason Comments Refill Encounter Details Date Type Department Care Team Description 03/02/2014 Refill Specialty Center 401 Zelalem Cohen, DO Refill Interventional Pain Management [address] [place] [address] [place] [address] [phone] Social History Tobacco Use Types Packs/Day Years Used Date Smoking Tobacco: Never Smokeless Tobacco: Never Alcohol Use Standard Drinks/Week Comments No 0 (1 standard drink = 0.6 oz pure alcoho l) Sex Assigned at Date Recorded Male 08/06/2021 5:59 PM CDT documented as of this encounter Nursing Notes Loree Garcia RN - 03/03/2014 12:58 PM CDT Reviewed dose and directions with and Rx refilled. Verbalized understanding Zelalem Cohen MD - 03/03/2014 12:42 PM CDT Titrate by 100mg every 3 days working up to 400mg tid Dr. Benito Cohen Loree Garcia RN - 03/03/2014 9:28 AM CDT Spoke with - he has not noticed much improvement in his pain versus being on the Lyrica. Denies side effects. Does provider want to adjust dose for his refill? Loree Garcia RN - 03/02/2014 4:50 PM CDT Is provider willing to refill- can refills be attached? Per 01/26 OV: Assessment: 1. SCI 2. Back pain 3. Paraplegia 4. Rectal pain Plan of Care: 1. D/c norflex 2. No change in baclofen, refilled 3. No change in tizanidine, refilled 4. No change in cymbalta, refilled 5. [facility]ed with [facility] re: compounded cream, no longer being covered by his insurance and this was helping with pain 6. Taper off lyrica, once off pt will call, consider starting neurontin 7. Tens unit, recommended with helping, needs to f/u with PT for educations, impaired sensation, will try along low back 8. No injections documented in this encounter Plan of Treatment Not on filedocumented as of this encounter Visit Diagnoses Not on filedocumented in this encounter
--- OUTSIDE RECORDS SUMMARY | 2022-06-20 02:27 | XMS_ITS | Encounter Summary ---
:1945 Author Organization [employer] Address [address] [address] Care Team Providers Name Role Phone Unavailable Primary Care Provider Unavailable Reason for Visit Reason Onset Date Comments Injection 03/02/2014 Encounter Details Date Type Department Care Team Description 03/02/2014 [facility]phone [facility] 401 Garry Neff MD Injection NeuroSurgery [address] [place] [address] [place] [address] [phone] Social History Tobacco Use Types Packs/Day Years Used Date Smoking Tobacco: Never Smokeless Tobacco: Never Alcohol Use Standard Drinks/Week Comments No 0 (1 standard drink = 0.6 oz pure alcoho l) Sex Assigned at Date Recorded Male 08/06/2021 5:59 PM CDT documented as of this encounter Progress Notes Isrrael Jenkins RN - 03/16/2014 4:20 PM CDT Addended by: ISRRAEL JENKINS on: 03/16/2014 04:20 PM Modules accepted: Orders documented in this encounter Nursing Notes Isrrael Jenkins RN - 03/16/2014 4:01 PM CDT did review the MRI which he state does show enlarged facet joints, at L 4-5, for this he does recommend facet joint injection with steroid. This will be done at [facility] to be closer for patient..Isrrael Jenkins RN 03/16/2014, 4:04 PM Orders written, faxed to [facility] and patient informed.Isrrael Jenkins RN 03/16/2014, 4:04 PM Isrrael Jenkins RN - 03/03/2014 2:43 PM CDT Call placed and left message explaining to patient and that we will await the scan to arrive and will review with to determine if patient would need to be seen or if he could order an injection with out patient being seen dependent on symptoms. Isrrael Jenkins RN 03/03/2014, 3:01 PM Govind Dwyer - 03/02/2014 2:47 PM CDT Heather is calling regarding her Jeff. She states per Jeff's physical therapist patient should have an MRI. Patient's PCP Dr. Loretta Mcmahan at [facility] in [place] ordered MRI for patient. Per results Dr. Mcmahan thought patient should be seen by Dr. Neff and possibly have an injection. I informed patient to call clinic and have CD of EMILIE sent to our clinic. Please call patient's . documented in this encounter Plan of Treatment Not on filedocumented as of this encounter Visit Diagnoses Diagnosis Back pain - Primary Backache, unspecified documented in this encounter
--- OUTSIDE RECORDS SUMMARY | 2022-06-20 02:27 | XMS_ITS | Encounter Summary ---
:1945 Author Organization [employer] Address [address], [place] [address] Care Team Providers Name Role Phone Unavailable Primary Care Provider Unavailable Reason for Visit Reason Onset Date Comments RESULTS, TEST 06/16/2014 Encounter Details Date Type Department Care Team Description 06/16/2014 [facility]phone [facility] 401 Zelalem Cohen, DO RESULTS, TEST NeuroSurgery [address] [place] [address] [place] [address] [phone] Social History Tobacco Use Types Packs/Day Years Used Date Smoking Tobacco: Never Smokeless Tobacco: Never Alcohol Use Standard Drinks/Week Comments No 0 (1 standard drink = 0.6 oz pure alcoho l) Sex Assigned at Date Recorded Male 08/06/2021 5:59 PM CDT documented as of this encounter Nursing Notes Cristy Rodrigues RN - 06/21/2014 3:55 PM CDT Spoke with pt's to relay results. She will try to move up appt with Dr. Cohen to discuss painmanagement options, and pt will continue PT Cristy Rodrigues RN 06/21/2014, 3:55 PM Jodi Aguila PA-C - 06/17/2014 5:11 PM CDT Reviewed bone spect with Dr. Neff. There are multiple areas that light up but not one focal area. There is moderate uptake at discs at L3-L4 and L5-S1, which look degenerated on MRI. Unfortunately, no injections can help with this pain. There is mild uptake at right T12-L2 and bilateral L1-L2 facet joints, which don't look bad on MRI. Dr. Neff would like him to concentrate on conservative measures (PT, chiropractor, pain mgmt) and consider glucosamine chondroitin. If his pain is worsening to improve, we can follow up to discuss surgical options. Sylvia Washington RN - 06/16/2014 4:43 PM CDT Will ask Dr. Neff team to review the bone scan results tomorrow when they are back in clinic. Sylvia Washington RN 06/16/2014, 4:43 PM Loree Garcia RN - 06/16/2014 4:37 PM CDT This was order by Neurosurgery. Mary Ann Robles - 06/16/2014 3:13 PM CDT Calling for results on bone scan done. documented in this encounter Plan of Treatment Not on filedocumented as of this encounter Visit Diagnoses Not on filedocumented in this encounter
--- OUTSIDE RECORDS SUMMARY | 2022-06-20 02:27 | XMS_ITS | Encounter Summary ---
:1945 Author Organization [facility] Address [address], [place] [address] Care Team Providers Name Role Phone Franklin Squires MD Primary Care Provider Encounter Details Date Type Department Care Team Description 06/04/2014 [facility] 401 First[employer]anni Zelalem MEDICAID PT Interventional Pain L, DO INFORMATION EMPI Management [address] RECOVERY [address] [place] [address] [phone] Social History Tobacco Use Types Packs/Day Years [...] on filedocumented in this encounter Care Teams Content Development Specialist Relationship Specialty Start Date End Date Franklin Squires MD PCP - General Family Practice 03/08/[address] [place] [address] [place] [address] documented as of this encounter
--- OUTSIDE RECORDS SUMMARY | 2022-06-20 02:27 | XMS_ITS | Encounter Summary ---
:1945 Author Organization [facility] Address [address] [address] Care Team Providers Name Role Phone Unavailable Primary Care Provider Unavailable Encounter Details Date Type Department Care Team Description 02/24/2014 Orders Only External to Alfonso Neff MD [address] [place] [phone] (Wo rk) Social History Tobacco Use Types Packs/Day Years Used Date Smoking Tobacco: Never Smokeless Tobacco: Never Alcohol Use Standard Drinks/Week Comments No 0 (1 standard drink = 0.6 oz pure alcoho l) Sex Assigned at Date Recorded Male 08/06/2021 5:59 PM CDT documented as of this encounter Procedure Notes Garry Neff MD - 02/24/2014 12:00 AM CDTAssociated Order(s): MRI SPINE--SCAN documented in this encounter Plan of Treatment Not on filedocumented as of this encounter Procedures Procedure Name Priority Date/Time Associated Diagnosis Comme nts MRI SPINE--SCAN 02/24/2014 12:00 AM Resul ts for this CDT procedure are i n the results section. documented in this encounter Results MRI SPINE--SCAN (02/24/2014 12:00 AM CDT) Anatomical Region Laterality Modality Other Specimen (Source) Anatomical Location Collection Method / Collectio n Time Received Time / Laterality Volume 02/24/2014 Narrative This result has an attachment that is no t available. Transcriptions Garry Neff MD - 02/24/2014 12: 00 AM CDT Garry Neff MD DUMMY/OTHER/AR documented in this encounter Visit Diagnoses Not on filedocumented in this encounter
--- OUTSIDE RECORDS SUMMARY | 2022-06-20 02:27 | XMS_ITS | Encounter Summary ---
:1945 Author Organization [facility] Address [address] [address] Care Team Providers Name Role Phone Unavailable Primary Care Provider Unavailable Encounter Details Date Type Department Care Team Description 07/14/2014 [facility]phone [facility] 401 Jodi Aguila PA-C NeuroSurgery [address] [place] [address]. [place] [address] [place] [address] [phone] Social History Tobacco Use Types Packs/Day Years Used Date Smoking Tobacco: Never Smokeless Tobacco: Never Alcohol Use Standard Drinks/Week Comments No 0 (1 standard drink = 0.6 oz pure alcoho l) Sex Assigned at Date Recorded Male 08/06/2021 5:59 PM CDT documented as of this encounter Nursing Notes Selene Johnson RN - 07/14/2014 12:53 PM CDT Order placed and faxed to [facility] in [place]. Patient notified that he will await a call from [facility] return call. Selene Johnson RN 07/14/2014, 12:57 PM Jodi Aguila PA-C - 07/14/2014 10:01 AM CDT Talked to Lindy and . They have been trying PT. It gives some relief but he is still in severe amount of pain with any activity. They would like to try something else. See previous phonenotes- failed L4-L5, L5-S1 facet blocks. Bone spect also lights up at L1-L2. Back pain only on left Will try left L1-L2 MBB and perc rhizolysis with Oswald Wall at [facility]. Informed he will need to go offcoumadin per [facility]'s protocol. Please assist with entering order and coordinating. Instructed to call with response. Lindy and Jeff in agreement to plan. Jodi Smith PA-C documented in this encounter Plan of Treatment Not on filedocumented as of this encounter Visit Diagnoses Diagnosis Back pain - Primary Backache, unspecified documented in this encounter
--- OUTSIDE RECORDS SUMMARY | 2022-06-20 02:27 | XMS_ITS | Encounter Summary ---
:1945 [address] Address [address] [place] [address] Care Team Providers Name Role Phone Unavailable Primary Care Provider Unavailable Reason for Visit Procedure/Equipment (Routine) - Closed Specialty Diagnoses / Procedures Referred By Contact Refer red To Contact Diagnoses LBP (low back pain) Jodi Aguila PA-C Procedures XR L-SPINE FLEXION/EXTENSION ONLY [address] [place] [address] Referral ID Status Reason Start Date Expiration Date Visits Requ ested Visits Authorized [id number] Closed 06/03/2014 1 1 Encounter Details Date Type Department Care Team Description 06/07/2014 [facility] Jodi Aguila PA-C LBP (low back pain) Radiology [address] [place] [address] [place] [address] [phone] Social History Tobacco Use Types Packs/Day Years [...] Diagnosis Comme nts XR LUMBAR SPINE Routine 06/07/2014 12:01 PM LBP (low back pain ) Results for this FLEX/EXT ONLY CDT procedure are in the results section. documented in this encounter Results XR L-SPINE FLEXION/EXTENSION ONLY (06/07/2014 12:01 PM CDT) Anatomical Region Laterality Modality Spine, L-Spine Computed Radiography Specimen (Source) Anatomical Collection Method Collection Time Re ceived Time Location / / Volume Laterality 06/07/2014 12:01 PM CDT Narrative 06/07/2014 2:36 PM CDT XR L-SPINE FLEX/EXT ONLY 06/07/2014 12:01 PM INDICATION: Lumbar pain. COMPARISON: MRI lumbar spine 09/18/2011. FINDINGS: Flexion-extension views lumbar spine show straightening of the normal lumbar lordosis. Alignment otherw ise satisfactory. No change in alignment on flexion or extension. Advan marycarmen degenerative change L5-S1 intervertebral disc with degenerative ch anges in the lower lumbar facet joints. Vena cava filter noted. Procedure Note Harshad Browne MD - 06/07/2014Formatt ing of this note might be different from the original. XR L-SPINE FLEX/EXT ONLY 06/07/2014 12:01 PM INDICATION: Lumbar pain. COMPARISON: MRI lumbar spine 09/18/2011. FINDINGS: Flexion-extension views lumbar spine show straightening of the normal lumbar lordosis. Alignment otherw ise satisfactory. No change in alignment on flexion or extension. Advan marycarmen degenerative change L5-S1 intervertebral disc with degenerative ch anges in the lower lumbar facet joints. Vena cava filter noted. Jodi SAMSON GD documented in this encounter Visit Diagnoses Diagnosis LBP (low back pain) Lumbago documented in this encounter
--- OUTSIDE RECORDS SUMMARY | 2022-06-20 02:27 | XMS_ITS | Encounter Summary ---
:1945 Author Organization [facility] Address [address] [address] Care Team Providers Name Role Phone Franklin Squires MD Primary Care Provider Encounter Details Date Type Department Care Team Description 12/16/2013 [facility] Rad[facility] Radiology, MRI SAFETY SHEET [address] [facility] Provider [place] [address] Social History Tobacco Use Types Packs/Day Years Used Date Smoking Tobacco: Never Smokeless Tobacco: Never Alcohol Use Standard Drinks/Week Comments No 0 (1 standard drink = 0.6 oz pure alcoho l) Sex Assigned at Date Recorded Male 08/06/2021 5:59 PM CDT documented as of this encounter Progress Notes Radiology, Provider - 12/16/2013 12:00 AM CST HAND documented in this encounter Plan of Treatment Not on filedocumented as of this encounter Visit Diagnoses Not on filedocumented in this encounter Care Teams Design Maker Relationship Specialty Start Date End Date Franklin Squires MD PCP - General Family Practice 03/08/[address] [place] [address] [place] [address] documented as of this encounter
--- OUTSIDE RECORDS SUMMARY | 2022-06-20 02:27 | XMS_ITS | Encounter Summary ---
:1945 Author Organization [facility] Address [address] [address] Care Team Providers Name Role Phone Unavailable Primary Care Provider Unavailable Encounter Details Date Type Department Care Team Description 01/22/2014 Therapy External to Physical Therapy, Provider Social History Tobacco Use Types Packs/Day Years Used Date Smoking Tobacco: Never Smokeless Tobacco: Never Alcohol Use Standard Drinks/Week Comments No 0 (1 standard drink = 0.6 oz pure alcoho l) Sex Assigned at Date Recorded Male 08/06/2021 5:59 PM CDT documented as of this encounter Progress Notes Physical Therapy, Provider - 01/22/2014 12:00 AM CDT documented in this encounter Plan of Treatment Not on filedocumented as of this encounter Visit Diagnoses Not on filedocumented in this encounter
--- OUTSIDE RECORDS SUMMARY | 2022-06-20 02:27 | XMS_ITS | Encounter Summary ---
:1945 Author Organization [facility] Address [address] [address] Care Team Providers Name Role Phone Franklin Squires MD Primary Care Provider Encounter Details Date Type Department Care Team Description 06/11/2014 Correspondence [facility] May Randel, [facility] 401 Physical Medicin e [address] [place] [address] [place], [place] [phone] (Wo rk) Social History Tobacco Use Types [...] on filedocumented in this encounter Care Teams Debarker Operator Relationship Specialty Start Date End Date Franklin Squires MD PCP - General Family Practice 03/08/[address] [place], [place] [address]LES Wong [address] documented as of this encounter
--- OUTSIDE RECORDS SUMMARY | 2022-06-20 02:27 | XMS_ITS | Encounter Summary ---
:1945 Author Organization [facility] Address [address], [place] [address] Care Team Providers Name Role Phone Unavailable Primary Care Provider Unavailable Reason for Visit Reason Comments Revisit back and anal pain Encounter Details Date Type Department Care Team Description 01/26/2014 Office Visit Specialty Center 401 Zelalem Cohen feliberto cord injury Interventional Pain L, DO (Primary Dx) Management [address] [place] [address] [phone] Social History Tobacco Use Types Packs/Day Years Used Date Smoking Tobacco: Never Smokeless Tobacco: Never Alcohol Use Standard Drinks/Week Comments No 0 (1 standard drink = 0.6 oz pure alcoho l) Sex Assigned at Date Recorded Male 08/06/2021 5:59 PM CDT documented as of this encounter Last Filed Vital Signs Vital Sign Reading Time Taken Comments Blood Pressure 128/83 01/26/2014 11:38 AM CDT Pulse 85 01/26/2014 11:12 AM CDT Temperature - - Respiratory Rate - - Oxygen Saturation - - Inhaled Oxygen Concentration - - Weight - - Height - - Body Mass Index - - documented in this encounter Patient Instructions Patient InstructionsZelalem Cohen MD - 01/26/2014 11:30 AM CDT 1. Continue baclofen no change 2. Continue tizanidine no change 3. Stop the norflex now 4. Eliminate one pill of lyrica every 3 days until off Call Dr. Cohen once you get off of lyrica 5. Follow up with PT for therapy as well as TENS units. Have PT call Dr. Cohen regarding this 6. Future, will start neurontin Dr. Benito Cohen [phone] documented in this encounter Progress Notes Zelalem Cohen MD - 01/27/2014 9:02 AM CDT Pain clinic follow up visit: Subjective: continues to c/o rectal pain, low back pain, going to PT. On lyrica, no relief, SE of wtgain. On cymbalta, tizanidine, baclofen, norflex. Using compounded cream with some relief but no longer getting coverage from insurance. Objective: Filed Vitals: 01/26/14 1112 01/26/14 1138 BP: 148/85 128/83 Pulse: 85 Gen: nad, a/o present In w/c Insensate low back Assessment: 1. SCI 2. Back pain 3. Paraplegia 4. Rectal pain Plan of Care: 1. D/c norflex 2. No change in baclofen, refilled 3. No change in tizanidine, refilled 4. No change in cymbalta, refilled 5. Talked with [facility] pharmacy re: compounded cream, no longer being covered by his insurance and this was helping with pain 6. Taper off lyrica, once off pt will call, consider starting neurontin 7. Tens unit, recommended with helping, needs to f/u with PT for educations, impaired sensation, will try along low back 8. No injections Zelalem Cohen MD 01/27/2014, 9:02 AM documented in this encounter Plan of Treatment Not on filedocumented as of this encounter Visit Diagnoses Diagnosis Spinal cord injury - Primary Unspecified site of spinal cord injury w ithout evidence of spinal bone injury documented in this encounter
--- OUTSIDE RECORDS SUMMARY | 2022-06-20 02:27 | XMS_ITS | Encounter Summary ---
:1945 Author Organization [facility] Address [address] [address] Care Team Providers Name Role Phone Franklin Squires MD Primary Care Provider Encounter Details Date Type Department Care Team Description 05/04/2014 [facility] May RandleER OF MEDICAL 401 Physical Kirsten Clemente MD NECESSITY FOR A [address] [place] [place] [address] [place], [place] [phone] [facility] Social History Tobacco Use Types Packs/Day Years [...] on filedocumented in this encounter Care Teams Operator Helper Relationship Specialty Start Date End Date Franklin Squires MD PCP - General Family Practice 03/08/[address] [place], [place] [address]LES Wong [id number] documented as of this encounter
--- OUTSIDE RECORDS SUMMARY | 2022-06-20 02:27 | XMS_ITS | Encounter Summary ---
:1945 Author Organization [facility] Address [address], [place] [address] Care Team Providers Name Role Phone Unassigned, Provider Primary Care Provider Unavailable Reason for Visit Reason Onset Date Comments Forms 11/12/2013 [employer] Encounter Details Date Type Department Care Team Description 11/12/2013 Telephone Specialty Center May Randle F or ([employer] 401 Physical Medicin e MD & Mobility) [address] [place] [address] [place], [place] [phone] (Wo rk) Social History Tobacco Use Types Packs/Day Years Used Date Smoking Tobacco: Never Smokeless Tobacco: Never Alcohol Use Standard Drinks/Week Comments No 0 (1 standard drink = 0.6 oz pure alcoho l) Sex Assigned at Date Recorded Male 08/06/2021 5:59 PM CDT documented as of this encounter Nursing Notes Stella Michelle - 11/16/2013 4:23 PM CST Completed and faxed [employer] Stella Michelle - 11/12/2013 3:36 PM CST [employer] forms placed on Dr. Randle's Desk [employer] documented in this encounter Plan of Treatment Not on filedocumented as of this encounter Visit Diagnoses Not on filedocumented in this encounter Care Teams Wind Instrument Repairer Relationship Specialty Start Date End Date Unassigned, Provider PCP - General Unknown Physician 09/04/[address] [place] [address] documented as of this encounter
--- OUTSIDE RECORDS SUMMARY | 2022-06-20 02:27 | XMS_ITS | Encounter Summary ---
:1945 Author Organization [facility] Address [address], [place] [address] Care Team Providers Name Role Phone Unassigned, Provider Primary Care Provider Unavailable Reason for Visit Reason Comments Refill Encounter Details Date Type Department Care Team Description 11/27/2013 Refill Specialty Center 401 Zelalem Cohen, Refill Interventional Pain Management [address] [place] [address] [place] [address] [phone] Social History Tobacco Use Types Packs/Day Years Used Date Smoking Tobacco: Never Smokeless Tobacco: Never Alcohol Use Standard Drinks/Week Comments No 0 (1 standard drink = 0.6 oz pure alcoho l) Sex Assigned at Date Recorded Male 08/06/2021 5:59 PM CDT documented as of this encounter Nursing Notes Charles Zapata RN - 11/27/2013 1:42 PM CST Received electronic refill request for Cymbalta 20mg rx from [employer] Telegraph Lineman sent refill electronically to pharmacy. 09/23/13 Dr. Cohen last rx'd CYMBALTA 20 MG delayed release capsule Sig : TAKE 4 CAPSULES BY MOUTHDAILY. Qty# 360 Cap Refill: 0. 04/20/13 Pt last seen in clinic for back pain. Per POC note, No change with cymbalta. Pt is scheduled for revisit 01/26/14. [employer]ATION ASSOCIATE documented in this encounter Plan of Treatment Not on filedocumented as of this encounter Visit Diagnoses Not on filedocumented in this encounter Care Teams Grinder Set Up Operator Internal Relationship Specialty Start Date End Date Unassigned, Provider PCP - General Unknown Physician 09/04/13 12/15/13 [address] [place] [address] documented as of this encounter
--- OUTSIDE RECORDS SUMMARY | 2022-06-20 02:27 | XMS_ITS | Encounter Summary ---
:1945 Author Organization [facility] Address [address] [address] Care Team Providers Name Role Phone Unavailable Primary Care Provider Unavailable Reason for Visit Reason Onset Date Comments Refill 04/26/2014 Encounter Details Date Type Department Care Team Description 04/26/2014 Refill Specialty Center 401 Zelalem Cohen, DO Refill Interventional Pain Management [address] [place] [address] [place] [address] [phone] Social History Tobacco Use Types Packs/Day Years Used Date Smoking Tobacco: Never Smokeless Tobacco: Never Alcohol Use Standard Drinks/Week Comments No 0 (1 standard drink = 0.6 oz pure alcoho l) Sex Assigned at Date Recorded Male 08/06/2021 5:59 PM CDT documented as of this encounter Nursing Notes Loree Garcia RN - 04/30/2014 11:24 AM CDT Verified with the patient's that the cream is covered again. Loree Garcia RN - 04/30/2014 10:40 AM CDT LMTCB for the patient to check on whether the cream is covered now Zelalem Cohen MD - 04/29/2014 9:59 PM CDT Yes agree Pharmacy will give to pt for free at times, Should be covered now if covered in past Looks as though dr. lora refilled the cream Dr. Benito Cohen Loree Garcia RN - 04/26/2014 10:00 AM CDT Spoke with and patient- this had been covered in the past but stopped being covered last year. Want to try refilling to see if will cover this again. They mentioned that Dr. Cohen had advised them that sometimes when its not covered the pharmacy will just give to the patient- explained that I was unsure what was meant by that. Would need to discuss with Dr. Cohen when he returns- they are aware that he is out until 05/04. Provider to review and recommend. Deacon Lora MD - 04/26/2014 9:53 AM CDT Cream refilled Deacon Lora MD Loree Garcia RN - 04/26/2014 9:38 AM CDT Is provider willing to refill? Per 01/26 OV: Assessment: 1. SCI 2. Back pain 3. Paraplegia 4. Rectal pain Plan of Care: 1. D/c norflex 2. No change in baclofen, refilled 3. No change in tizanidine, refilled 4. No change in cymbalta, refilled [facility]. [facility], no longer being [...]
--- OUTSIDE RECORDS SUMMARY | 2022-06-20 02:27 | XMS_ITS | Encounter Summary ---
:1945 [address] [facility] Address [address] [place] [address] Care Team Providers Name Role Phone Unavailable Primary Care Provider Unavailable Reason for Visit Reason Onset Date Comments EQUIPMENT ORDERS 03/09/2014 wheel chair Encounter Details Date Type Department Care Team Description 03/09/2014 Telephone Specialty Center May Randle E QUIPMENT ORDERS (wheel 401 Physical Medicin e MD chair) [address] [place] [address] [place], [place] [phone] (Wo rk) Social History Tobacco Use Types Packs/Day Years Used Date Smoking Tobacco: Never Smokeless Tobacco: Never Alcohol Use Standard Drinks/Week Comments No 0 (1 standard drink = 0.6 oz pure alcoho l) Sex Assigned at Date Recorded Male 08/06/2021 5:59 PM CDT documented as of this encounter Nursing Notes Cristy Carson RN - 03/30/2014 2:26 PM CDT I gave Raquel the [phone] fax number today to send again. May Randle MD - 03/29/2014 7:56 PM CDT Do not believe these were ever received. May Randle MD Cristy Carson RN - 03/16/2014 5:09 PM CDT Raquel at [facility] is requesting another form/ order for detailed description to be signed, the one that was returned has the note that trial is needed. Also need to sign the amended /addended LMN that Trudi Raymundo did on 02/05/14. She will send these back to clinic. Cristy Carson RN Cristy Carson RN - 03/09/2014 5:01 PM CDT Trudi Raymundo PT amended her letter of medical necessity on 02/05/14 after pt changed vendors from [employer] to [facility] [employer] in [facility] The letter indicates the reason for the change in vendors and that pt has completed an in home trialof the recommended equipment. Will talk with [facility] about what specific equipment the pt used in home, as there are multiple separate accessories recommended. Cristy Carson RN May Randle MD - 03/09/2014 3:01 PM CDT Handed in-do not see and cannot find in chart that vendor has documented an in home trial with this type of chair-have particular concerns about power recline and pt/ repositioning him in chair-would want them to do an inhome trial. May Randle MD aDnya Ta - 03/09/2014 12:34 PM CDT Raquel is calling from [facility] inquiring about the fax they sent over for a standing wheelchair. She said they have sent it over twice and haven't heard anything back. Raquel is requesting a callback from the nurse. Thank you! documented in this encounter Plan of Treatment Not on filedocumented as of this encounter Visit Diagnoses Not on filedocumented in this encounter
--- OUTSIDE RECORDS SUMMARY | 2022-06-20 02:27 | XMS_ITS | Encounter Summary ---
:1945 Author Organization [facility] Address [address], [place] [address] Care Team Providers Name Role Phone Unavailable Primary Care Provider Unavailable Reason for Referral Procedure/Equipment (Routine) - Incomplete Specialty Diagnoses / Procedures Referred By Contact Refer red To Contact Procedures Jodi Aguila PA-C NM BONE IMAGING (SPECT) [address] [place] [address] Referral ID Status Reason Start Date Expiration Date Visits V isits Requested Authorized [id number] Incomplete 06/07/2014 6 6 Procedure/Equipment (Routine) - Closed Specialty Diagnoses / Procedures Referred By Contact Refer red To Contact Diagnoses LBP (low back pain) Jodi Aguila PA-C Procedures XR L-SPINE FLEXION/EXTENSION ONLY [address] [place] [address] Referral ID Status Reason Start Date Expiration Date Visits Requ ested Visits Authorized [id number] Closed 06/03/2014 1 1 Reason for Visit Reason Comments Revisit Encounter Details Date Type Department Care Team Description 06/07/2014 Office Visit [facility] Jodi Aguila LBP (low back pain) 401 NeuroSurgery LYDIA (Primary Dx) [address] [place] [address] [place], [place] [phone] Social History Tobacco Use Types Packs/Day Years Used Date Smoking Tobacco: Never Smokeless Tobacco: Never Alcohol Use Standard Drinks/Week Comments No 0 (1 standard drink = 0.6 oz pure alcoho l) Sex Assigned at Date Recorded Male 08/06/2021 5:59 PM CDT documented as of this encounter Last Filed Vital Signs Vital Sign Reading Time Taken Comments Blood Pressure 140/87 06/07/2014 12:13 PM CDT Pulse 78 06/07/2014 12:13 PM CDT Temperature - - Respiratory Rate - - Oxygen Saturation - - Inhaled Oxygen Concentration - - Weight 113.9 kg (251 lb) 06/07/2014 12:12 PM CDT Height - - Body Mass Index 37.07 04/15/2013 11:06 AM CDT documented in this encounter Patient Instructions Patient InstructionsRuSelene tee RN - 06/07/2014 12:50 PM CDT Neurosurgery/Spine Clinic Patient Instructions You will be scheduled for a bone spect scan. Please call once completed and we will let you know theresults. Follow up with Dr. Garry Neff, this is dependent on the results of the bone spect scan. If tests were ordered, they will be [...] understanding. Please call the Neurosurgery/Spine Clinic at [phone] with any further questions or concerns. documented in this encounter Progress Notes Jodi Aguila PA-C - 06/07/2014 12:54 PM CDT Neurosurgery Clinic Follow Up Note [...] and colostomy. He remains insensate in the LE with chronic light tingling on anterior thighs Jeff has recently been having more lumbar pain, located at left lumbar area with radiation to hip and groin. Has been very severe over last 4-5 months. Started PT which helps while he is there, but no long-term relief. He had updated MRI and we send him for L4-L5 (03/23/14) and L5-S1 (05/06/15) facet injections recently at [facility]. He does not remember is one was more helpful but he did not have long-term relief with either of these. Per the [facility] notes, he obtained 10% and 20% relief respectively. His backpain is worst with sitting and bending. Unable to do his exercise bike which requires him to swing his arms. He is only comfortable laying on his right side, he does have a lot of pain with rolling in bed. Pain usually better in morning. For pain, he is taking baclofen, tizanidine, gabapentin, and topical cream. He is tolerating the oral dosing of baclofen for his LE spasticity. He was recently given a prescription for Vicodin but has not has a lot relief with it. Uses ice on back. Physical Examination: Blood pressure 140/87, pulse 78, weight 251 lb (113.853 kg). ?? General: in no acute distress. Alert [...] does not reproduce back pain. Imaging Studies: MRI 02/2014: Shows post-op changes at conus medullaris/cauda equina. Mild facet arthropathy at L3-L4 with slight disc desiccation. Disc bulge at L4-L5 with moderate bilateral facet hypertrophy and mild spinal stenosis. Right > left moderate facet hypertrophy and marked disc degeneration at L5-S1, mild to moderate spinal stenosis. 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 The plan of care was reviewed with Dr Neff who also saw and evaluated the patient. Jodi Smith PA-C Neurosurgery Total time spent with the patient was 25 minutes, of which over 50% was spent on counseling. documented in this encounter Plan of Treatment Not on filedocumented as of this encounter Results NM BONE IMAGING (SPECT) [...] LLQ end colostomy. Scattered colonic diverticula. Jodi Aguila PA-C RAD NM XR L-SPINE FLEXION/EXTENSION ONLY (06/07/2014 12:01 PM [...] facet joints. Vena cava filter noted. Jodi Aguila PA-C RAD GD documented in this encounter Visit Diagnoses Diagnosis LBP (low back pain) - Primary Lumbago LBP (low back pain) Lumbago documented in this encounter
--- OUTSIDE RECORDS SUMMARY | 2022-06-20 02:27 | XMS_ITS | Encounter Summary ---
:1945 Author Organization [facility] [address] [address] Care Team Providers Name Role Phone Franklin Squires MD Primary Care Provider Encounter Details Date Type Department Care Team Description 02/05/2014 Correspondence [facility] Trudi Raymundo, PT LETTER OF MEDICAL Physical Therapy [address] NECESSITY FOR A [address] [place] [address] [phone] Social History Tobacco Use Types Packs/Day Years [...] on filedocumented in this encounter Care Teams Web Architect Relationship Specialty Start Date End Date Franklin Squires MD PCP - General Family Practice 03/08/[address] [place] [address] [facility] [place] [address] documented as of this encounter
--- OUTSIDE RECORDS SUMMARY | 2022-06-20 02:27 | XMS_ITS | Encounter Summary ---
:1945 Author Organization [employer] Address [address] [address] Care Team Providers Name Role Phone Unavailable Primary Care Provider Unavailable Reason for Referral Consult/Transfer Care (Routine) - Incomplete Specialty Diagnoses / Procedures Referred By Contact Refer red To Contact May Randle MD [address] [place] [address] Referral ID Status Reason Start Date Expiration Date Visits V isits Requested Authorized [id number] Incomplete 05/20/2014 1 1 Scheduling Instructions Your provider has recommended an appoint ment with a [facility] Physical Therapist. Please stop at the clinic check out desk for assistance with scheduling or please choose from one of the convenient locati ons to call and schedule your PT appointment: [facility] at [facility] [phone], [facility] Outpatient PT at [address] [place] [address] , [facility] Outpat ient PT at [facility] Rehab [facility] [phone]. Encounter Details Date Type Department Care Team Description 05/20/2014 Orders Only Specialty Center 401 May Randle MD Physical Medicine 295 [facility] 401 [facility] [place] [address] [place] [address] [phone] Social History Tobacco Use Types Packs/Day Years Used Date Smoking Tobacco: Never Smokeless Tobacco: Never Alcohol Use Standard Drinks/Week Comments No 0 (1 standard drink = 0.6 oz pure alcoho l) Sex Assigned at Date Recorded Male 08/06/2021 5:59 PM CDT documented as of this encounter Plan of Treatment Scheduled Referrals Name Type Priority Associated Diagnoses Order S [facility] PHYSICAL THERAPY Referral Routine Ordered: documented as of this encounter Visit Diagnoses Not on filedocumented in this encounter
--- OUTSIDE RECORDS SUMMARY | 2022-06-20 02:27 | XMS_ITS | Encounter Summary ---
:1945 Author Organization [employer] Address [address] [place] [address] Care Team Providers Name Role Phone Unavailable Primary Care Provider Unavailable Reason for Visit Auth/Cert - Closed Specialty Diagnoses / Procedures Referred By Contact Refer red To Contact Diagnoses Subdural hemorrhage following injury, without mention of open intracranial wound, unspecified state of consciousness . Referral ID Status Reason Start Date Expiration Date Visits Requ ested Visits Authorized [id number] Closed 1 1 Encounter Details Date Type Department Care Team Description 07/28/2014 Surgery RH Operating Room Cooper Shelley MD CRANIOTOMY [address] [place] [address] [place] [address] [phone] (Wo rk) Social History Tobacco Use Types Packs/Day Years Used Date Smoking Tobacco: Never Smokeless Tobacco: Never Alcohol Use Standard Drinks/Week Comments No 0 (1 standard drink = 0.6 oz pure alcoho l) Sex Assigned at Date Recorded Male 08/06/2021 5:59 PM CDT documented as of this encounter Last Filed Vital Signs Vital Sign Reading Time Taken Comments Blood Pressure 188/100 07/28/2014 7:00 PM no treatment per Dr. MARYJANE Christie Pulse 80 07/28/2014 7:00 PM CDT Temperature 36.4 ??C (97.5 ??F) 07/28/2014 6:42 PM CDT Respiratory Rate 15 07/28/2014 6:42 PM CDT Oxygen Saturation 99% 07/28/2014 6:42 PM CDT Inhaled Oxygen - - Concentration Weight 113.1 kg (249 lb 5.4 07/28/2014 4:11 PM oz) CDT Height 182.9 cm (6') 07/28/2014 4:11 [...] home, and please let our office know. [facility], 4th floor [address] [place] [address] Cooper Shelley and Molly Diaz PA-C is scheduled for 09/14 at 2:40pm. You will need a head CT prior. Please stop at radiology on the 1st floor 30 minutes prior to appointment. [facility], 4th floor [address] [place], [place] [id number] Scheduling Instructions: Please call [phone], option 3 for any rescheduling needs. Order [...] clinic if you have any incisional drainage. [phone]. If you would like to have your [...] in strength to your extremeties. Neurosurgery clinic [phone]. Diet Order Comments: Resume pre operative diet. [...] time of discharge was > 30 minutes IMelva RN, am serving as a scribe to document services personally performed by Molly Diaz PA-C. All data has been reviewed by Molly Diaz PA-C. Melva Raymundo R.N. Nurse Clinician Neurosurgery Pager [phone] Associated attestation - Molly Diaz PA-C - 08/10/2014 4:09 PM CDT Agree with above note I have reviewed the patient's images and performed a pertinent exam. Molly Diaz PA-C, 08/10/2014, 4:08 PM Neurosurgery [phone] documented in this encounter Discharge Instructions Discharge InstructionsAidee Forbes RN - 08/02/2014 3:47 PM CDT Information about future appointments scheduled by [facility] or Nursing (These appointments may appear [...] wound and fever greater than 101.5 degrees Faren[place] Community Resources NONE [place] [address] For questions about your discharge instructions call the nursing unit : [facility], Emergency & Urgently Needed Care: For emergencies call 911 and/or get medical help right away. If you are a [facility] member and have medical needs after clinic hours you may call the CareLineat [phone] or . Smoking and second-hand smoke exposure: Smoking damages blood vessels, reduces the oxygen in your blood and makes your heart beat too fast. If you smoke you should quit. Everyone should avoid second- hand smoke. If you would like further assistance after your discharge, please contact [phone] or visit [email or web address] can offer further [...] weight will also be followed by the Fuel Attendant when you go in for your treatment. [...] IM ONCE PRN ??? glucose-ascorbic acid (aka [id number]) chewable tablet 4 Tab 4 Tab Oral [...] IF >60 >60 ml/min/1.73m2 Narrative: Performed at [facility], [address] [place] [address] GLUCOSE, WHOLE BLOOD POC Result Value Range [...] plan of care discussed with Dr. Joaquín Brand MD, PGY1. Internal Medicine Resident. [phone] Associated attestation - Bayron Yanes MD - [...] mobility S/p ependymoma resection and treatment; coumadin medical terminologist use; hasIVC filter. Neurogenic bladder. Prominent cortical [...] Molly Diaz PA-C, 08/02/2014, 2:24 PM Neurosurgery [phone] Priti Hickey RN - 08/02/2014 9:44 AM CDT [facility]. PA Notified Note Name of MD notified: Endocrine ROXY Time of MD notification: 0900 hours and [...] SODIUM, URINE RANDOM 13 Narrative: Performed at [facility], [address] [place] [address] OSMOLALITY, URINE Result Value Range OSMOLALITY, URINE 164 Narrative: Performed at [facility], [address] [place] [address] GLUCOSE, WHOLE BLOOD POC Result Value Range GLUCOSE, WHOLE BLOOD 182 (*) 70 - 180 mg/dl SODIUM Result Value Range SODIUM 131 (*) 135 - 145 mmol/L Narrative: Performed at [facility], [address] [place] [address] GLUCOSE, WHOLE BLOOD POC Result Value Range [...] IF >60 >60 ml/min/1.73m2 Narrative: Performed at [facility], [address] [place] [address] GLUCOSE, WHOLE BLOOD POC Result Value Range [...] off discharge at that time. Communicated with RN. Jessie Nieves MD ([facility]) Pager: [phone] Jessie Nieves MBBS - 08/01/2014 11:30 AM [...] Somewhat worse c/w y'day. Appears Hypovolemia. - Chandler of IV fluids - Repeat levels in [...] final recommendations from Hematology. Jessie Nieves MD ([facility]) Pager: [phone] Merly Gaytan MD - 08/01/2014 11:17 AM [...] mobility S/p ependymoma resection and treatment; coumadin senior living use; has IVC filter. Neurogenic bladder. Prominent [...] with Dr. Mateo Gaytan MD, PhD Neurosurgery [facility] [phone] Priti Kebede RN - 07/31/2014 12:14 PM CDT [facility]. MD Notified Note Name of [...] mobility S/p ependymoma resection and treatment; coumadin senior living use; has IVC filter. Neurogenic bladder. Prominent [...] with Dr. Mateo Gaytan MD, PhD Neurosurgery [facility] [phone] Melva Raymundo RN - 07/30/2014 4:10 PM CDT Neurosurgery Progress Note 07/30/14 GEORGIE drain removed. Purse string suture tied. Incision clean and dry. Melva Raymundo R.N. Nurse Clinician Neurosurgery Pager [phone] Associated attestation - Cooper Shelley MD - 07/30/2014 4:17 PM CDT Agree with above note I have reviewed the patient's images and performed a pertinent exam. Cooper Shelley MD Neurosurgery Jodi Aguila PA-C - 07/30/2014 2:02 PM CDT Jeff is s/p R SDH evacuation on 07/28 LABORATORY TECHNOLOGIST called for neuro change accompanied by diaphoresis [...] Mills MD - 07/30/2014 1:32 PM CDT [facility] Rapid Response Team Note Time, Date & Location Rm: [phone] Transfer/Admission Information 69y right handed M with [...] stroke. Recommendation 1. STAT Head CT 2. Gracie per neurosurgery 3. Neurosurgery team is present [...] mobility S/p ependymoma resection and treatment; coumadin senior living use; hasIVC filter. Neurogenic bladder. Prominent cortical [...] Molly Diaz PA-C, 07/30/2014, 10:29 AM Neurosurgery [phone] Brittny Barrett, COMMUNICATIONS DIRECTOR, CRIPPLE WORKER - 07/30/2014 9:58 AM CDT Endocrine SCIP [...] 24 hours. Brittny Barrett CNP Endocrinology Pager: [phone] Jodi Ordonez RN - 07/29/2014 9:29 PM CDT [facility] Nursing Transfer Note (To/From ICU [...] Salazar MD - 07/29/2014 1:10 PM CDT [facility] SICU Critical Care Progress Note [...] murmurs rubs or gallops :: Pulses: 100 Rodent Exterminator: NSR GI: Exam: :: Soft, non-tender, non-distended [...] continue local wound care Infectious Disease: Antibiotic(s): ANCEF in OR, continue today Endocrine: Medications: per endocrine consult Prophylaxis: Aspiration: :: HOB > 30 degrees Seizure: :: none per neurosurgery Musculoskeletal / Skin :: frequent turns :: mepilex where / when indicated --- Mechanical DVT: :: SCDs --- Chemical DVT: :: none at this time Diagnostic Tests: Personally Reviewed: :: Imaging studies, Lab results Disposition: Transfer to [place] [address] Plan for the day ?? Add scheduled BB with hold parameters ?? D/C nicardipine ?? ADAT ?? Transfer to [place] [address] per Neurosurgery recommendations CORINA ZavalaS3 I have [...] Scheduled Lorazepam :: PRN APAP :: PRN [place] :: PRN Dilaudid Sedation Holiday: :: not [...] no Rubs :: Pulses: II/IV bilaterally throughout Rodent Exterminator: :: NSR with intermittent ST GI: Exam: [...] Crani site: C/D/I Infectious Disease: Antibiotics :: nivia Cultures: 07/28/2014 :: MRSA ADMISSION SCREEN (-) = FINAL Endocrine: Medications: :: none Devices: Harshad drain (head) Nasal canula De La Cruz catheter SCDs Daily Line Reassessment: # [...] hold parameters DC nicardipine ADAT Transfer to [place] [address] per NS Douglas CastanoLYDIA osborne SICU Staff Overall, this man is doing [...] Raymundo RN - 07/29/2014 12:46 PM CDT [facility] NeuroSurgery Craniotomy Progress Note 07/29/2014 [...] IM ONCE PRN ??? glucose-ascorbic acid (aka [id number]) chewable tablet 4 Tab 4 Tab Oral [...] mobility S/p ependymoma resection and treatment; coumadin medical terminologist use; hasIVC filter. Neurogenic bladder Plan Patient [...] Melva Raymundo R.N. Nurse Clinician Neurosurgery Pager [phone] --- End of Report --- Associated attestation - Cooper Shelley MD - 08/07/2014 11:27 AM CDT Agree with above note I have reviewed the patient's images and performed a pertinent exam. Cooper Shelley MD Neurosurgery Malika Maradiaga RN - 07/28/2014 6:59 PM CDT [facility] Plan of Care Note Assessment: [...] Shelley MD - 07/28/2014 8:48 PM CDT [facility] Brief Operative Progress Note Surgery [...] SURGERY: 07/28/2014 OPERATING SURGEON: Cooper Shelley MD SCCM ADMINISTRATOR SURGEON: None. PREOPERATIVE DIAGNOSES: 1. Right subdural [...] We then freed the dura using a Gem 3 and then used a craniotome to [...] Dictated: 07/29/2014 13:17:42 Transcribed: 07/29/2014 13:40:36 Job: [id number] Doc: [id number] cc: Quan Corbett PA-C, Referring Provider documented in this encounter Consult Notes Jessie Nieves MBBS - 07/31/2014 5:18 PM CDTAssociated Order(s): MEDICINE INPT CONSULT [facility] Medicine Consultation Note () Date of service: [...] 1999 S/p resection by Dr. Glasgow at [place] in 05/2000. However resection was incomplete due [...] for spasticity of lower extremities. ??? 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 Leg fracture, left nontraumatic ??? Hypercholesteremia ??? Chronic constipation ??? Depression Past Surgical History Procedure Laterality Date ??? Appendectomy ??? Vasectomy* ??? Turp incl contrl postop bleed cmpl ??? 35873 total knee arthroplasty right ??? Ivc filter placement 1999 Family History Problem Relation Age of Onset ??? Cancer, Colon Mother ??? Cancer, Other Brother brother with throat cancer ??? Cancer, Breast Sister ??? Osteoporosis Mother no history of fractures Social History Occupational History ??? [employer] ??? [employer] ??? retired/disability Social History Main Topics ??? [...] recommendations from Hematology. Jessie Nieves MD Pager: [phone] Time spent was 60 minutes with >50% [...] subdural hematoma, and he was transferred to [facility] for neurosurgery care. He is now s/p [...] 1999 S/p resection by Dr. Glasgow at [place] in 05/2000. However resection was incomplete due [...] for spasticity of lower extremities. ??? 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 Leg fracture, left nontraumatic ??? Hypercholesteremia ??? Chronic constipation ??? Depression Past Surgical History Procedure Laterality Date ??? Appendectomy ??? Vasectomy* ??? Turp incl contrl postop bleed cmpl ??? 02468 total knee arthroplasty right ??? Ivc filter placement 1999 Family History Problem Relation Age of Onset ??? Cancer, Colon Mother ??? Cancer, Other Brother brother with throat cancer ??? Cancer, Breast Sister ??? Osteoporosis Mother no history of fractures Social History Occupational History ??? [employer] ??? [employer] ??? retired/disability Social History Main Topics ??? [...] legs as described above. Assessment and Plan: eJff Cullen is a 69 year old male [...] help tip us in either direction regarding medical terminologist anti-coagulant use. 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 Glasgow at [place] in 05/2000. However resection was incomplete due [...] for spasticity of lower extremities. ??? 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 Leg fracture, left nontraumatic ??? Hypercholesteremia ??? Chronic constipation ??? Depression Past Surgical History Procedure Laterality Date ??? Appendectomy ??? Vasectomy* ??? Turp incl contrl postop bleed cmpl ??? 15802 total knee arthroplasty right ??? Ivc filter [...] dryness or diaphoresis Gait: deferred Affect: appropriate Client Advocate Strenth: good b/l Lab/test results discussed with [...] to see Jeff Muñoz CNP Endocrinology Pager [phone] Oscar Clinton MD - 07/28/2014 9:09 PM CDT [facility] SICU Critical Care Acceptance Note [...] 80 mg qD Gabapentin 400 mg TID [place] PRN Ativan 1 mg TID Niacin 500 [...] History ??? [employer] ??? [employer] ??? retired/disability Social History Main Topics ??? Smoking status: Never Smoker ??? Smokeless tobacco: Never Used ??? Alcohol Use: No ??? Drug Use: No ??? Sexual Activity: Partners: Female Other Topics Concern ??? Not on file Social History Narrative Wheelchair bound. Able to transfer from bed to wheelchair with assist of 1 at baseline. Lives with his in [place]. Vitals Filed Vitals: 07/28/14 1611 07/28/14 1842 [...] (*) 0.9 - 1.1 Narrative: Performed at [facility], [address] [place] [address] APTT (ACTIVATED PARTIAL THROMBOPLASTIN TIME Result Value Range PTT 51.2 (*) 24.0 - 37.0 sec Narrative: Performed at [facility], [address] [place] [address] ABO RH & ANTIBODY SCREEN (TYPE & SCREEN) Result Value Range CROSSMATCH EXPIRES 07/31/2014 ABO/RH(D) A NEGATIVE ANTIBODY SCREEN NEGATIVE Narrative: Performed at [facility], [address] [place] [address] head done at [facility] - [...] in AM Pain :: dilaudid PRN :: [place] PRN :: APAP prn Nausea :: zofran [...] oz) Intake/Output Summary (Last 24 hours) at 07/28/142109 Last data filed at 07/28/14 2100 Gross per 24 hour Intake 1200 ml Output 200 ml Net 1000 ml Assessment/Plan: 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 PGY-3, Emergency Department [phone] [facility]) Associated attestation - Shantanu Mejia [...] Diaz PA-C - 07/28/2014 5:46 PM CDT [facility] History and Physical () Admit Date/Time: 07/28/2014 [...] 1999 S/p resection by Dr. Glasgow at [place] in 05/2000. However resection was incomplete due [...] for spasticity of lower extremities. ??? 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 Leg fracture, left nontraumatic ??? Hypercholesteremia ??? Chronic constipation ??? Depression Past Surgical History Procedure Laterality Date ??? Appendectomy ??? Vasectomy* ??? Turp incl contrl postop bleed cmpl ??? 87024 total knee arthroplasty right ??? Ivc filter placement 2000 History Social History ??? Marital Status: Spouse Name: N/A Number of Children: 2 ??? Years of Education: N/A Occupational History ??? [employer] ??? [employer] ??? retired/disability Social History Main Topics ??? Smoking status: Never Smoker ??? Smokeless tobacco: Never Used ??? Alcohol Use: No ??? Drug Use: No ??? Sexual Activity: Partners: Female Other Topics Concern ??? Not on file Social History Narrative Wheelchair bound. Able to transfer from bed to wheelchair with assist of 1 at baseline. Lives with his in [place]. Family History Problem Relation Age of Onset [...] Molly Diaz PA-C, 07/28/2014, 5:50 PM Neurosurgery [phone] Report Completed by: Molly Diaz PA-C --- [...] Results CT HEAD (ADULT) (09/17/2014 1:23 PM HOUSING MANAGER) Anatomical Region Laterality Modality Head Computed Tomography Specimen (Source) Anatomical Collection Method Collection Time Re ceived Time Location / / Volume Laterality 09/17/2014 1:23 PM HOUSING MANAGER Narrative 09/17/2014 6:02 PM HOUSING MANAGER HEAD CT WITHOUT IV CONTRAST 09/17/2014 1:23 PM INDICATION: Subdural hematoma. TECHNIQUE: Head CT without IV contrast. COMPARISON: Head CT 08/26/2014 FINDINGS: Status post right parietal pattern scratcher niotomy. No residual or recurrent subdural hematoma. No midline shift. Nor mal intra-axial contents. Grossly normal orbits. No paranasal sinus or mas toid inflammation of significance. CONCLUSION: 1. ??Resolved subdural hematoma. 2. ??Normal intra-axial contents. Procedure Note Riki Eng MD - 09/17/2014Formattcan g of this note might be different from the original. HEAD CT WITHOUT IV CONTRAST 09/17/2014 1:23 PM INDICATION: Subdural hematoma. TECHNIQUE: Head CT without IV contrast. COMPARISON: Head CT 08/26/2014 FINDINGS: Status post right parietal pattern scratcher niotomy. No residual or recurrent subdural hematoma. [...] Cooper Shelley MD LAB_1 Performing Organization Address [facility]/ZIP [facility] e Number [address] [address] GLUCOSE, WHOLE BLOOD POC (08/02/2014 8:30 AM CDT) athologist Signature Glucose, Whole 143 70 - 180 [facility] mg/dl [facility] Comment: Point of Care Testing RN Notified Specimen Anatomical Collection Method Collection Time Receive d Time (Source) Location / / Volume Laterality 08/02/2014 8:30 AM 4 8:34 CDT AM CDT Cooper Shelley MD LAB_1 Performing Organization Address City/[facility] e Number [address] [address] (ABNORMAL) BASIC METABOLIC PANEL (08/02/2014 6:09 AM [...] Est., If >60 >60 [facility] Black ml/min/1.7 [facility] 3m2 Specimen Anatomical Collection Method Collection Time Receive d Time (Source) Location / / Volume Laterality 08/02/2014 6:09 AM 4 6:10 CDT AM CDT Narrative [facility] - 08/02/2014 6:53 AM CD T Performed at [facility] , [address] [place] [address] Jessie ASKEW LAB_1 Performing Organization Address City/[facility] Phon e Number [address] [address] (ABNORMAL) GLUCOSE, WHOLE BLOOD POC (08/01/2014 9:52 PM CDT) athologist Signature Glucose, Whole 224 (H) 70 - 180 [facility] Blood mg/dl [facility]OSPITAL Comment: Point of Care Testing RN Notified Specimen Anatomical Collection Method Collection Time Receive d Time (Source) Location / / Volume Laterality 08/01/2014 9:52 PM 4 9:56 CDT PM CDT Cooper Shelley MD LAB_1 Performing Organization Address City/[facility]/ZIP Code Phon e Number [address] [address] (ABNORMAL) SODIUM (08/01/2014 5:44 PM CDT) athologist Signature Sodium 131 (L) 135 - 145 [facility] mmol/L [facility] Specimen Anatomical Collection Method Collection Time Receive d Time (Source) Location / / Volume Laterality 08/01/2014 5:44 PM 4 5:45 CDT PM CDT Narrative [facility] - 08/01/2014 5:57 PM CD T Performed at [facility] , [address] [place] [address] Jessie ASKEW LAB_1 Performing Organization Address City/[facility] Phon e Number [address] [address] (ABNORMAL) GLUCOSE, WHOLE BLOOD POC (08/01/2014 5:20 PM CDT) athologist Signature Glucose, Whole 182 (H) 70 - 180 [facility] Blood mg/dl HOSPITAL Comment: Point of Care Testing RN Notified Specimen Anatomical Collection Method Collection Time Receive d Time (Source) Location / / Volume Laterality 08/01/2014 5:20 PM 4 5:25 CDT PM CDT Cooper Shelley MD LAB_1 Performing Organization Address City/[facility]/ZIP [facility] Phon e Number [address] [address] OSMOLALITY, URINE (08/01/2014 3:03 PM CDT) athologist Signature Osmolality, 164 [facility] Urine HOSPITAL Specimen Anatomical Collection Method Collection Time Receive d Time (Source) Location / / Volume Laterality Urine specimen 08/01/2014 3:03 PM 014 3:10 (specimen) CDT PM CDT [facility] - 08/01/2014 3:54 PM CD T Performed at [facility] , [address] [place] [address] Cooper Shelley MD LAB_1 Performing Organization Address City/[facility]/ZIP [facility] Phon e Number [address] [address] SODIUM, URINE RANDOM (08/01/2014 3:03 PM CDT) athologist Signature Sodium, Urine 13 mmol/L [facility] HOSPITAL Specimen Anatomical Collection Method Collection Time Receive d Time (Source) Location / / Volume Laterality Urine specimen 08/01/2014 3:03 PM 014 3:10 (specimen) CDT PM CDT [facility] - 08/01/2014 3:22 PM CD T Performed at [facility] , [address] [place] [address] Cooper Shelley MD LAB_1 Performing Organization Address City/[facility]/ZIP [facility] Phon e Number [address] [address] (ABNORMAL) GLUCOSE, WHOLE BLOOD POC (08/01/2014 12:41 PM CDT) P athologist Signature Glucose, Whole 274 (H) 70 - 180 [facility] mg/dl [facility] Comment: Point of Care Testing RN Notified Specimen Anatomical Collection Method Collection Time Receive d Time (Source) Location / / Volume Laterality 08/01/2014 12:41 08/01/2014 PM CDT 12:43 PM CDT Cooper Shelley MD LAB_1 Performing Organization Address City/State/ZIP Code Phon e Number [address] [address] (ABNORMAL) GLUCOSE, WHOLE BLOOD POC (08/01/2014 11:53 AM CDT) P athologist Signature Glucose, Whole 280 (H) 70 - 180 [facility] mg/dl [facility] Comment: Point of Care Testing RN Notified Specimen Anatomical Collection Method Collection Time Receive d Time (Source) Location / / Volume Laterality 08/01/2014 11:53 08/01/2014 AM CDT 12:04 PM CDT Cooper Shelley MD LAB_1 Performing Organization Address City/State/ZIP Code Phon e Number [address] [address] GLUCOSE, WHOLE BLOOD POC (08/01/2014 7:58 AM CDT) P athologist Signature Glucose, Whole 148 70 - 180 [facility] mg/dl [facility] Comment: Point of Care Testing RN Notified Specimen Anatomical Collection Method Collection Time Receive d Time (Source) Location / / Volume Laterality 08/01/2014 7:58 AM 4 8:01 CDT AM CDT Cooper Shelley MD LAB_1 Performing Organization Address City/State/ZIP Code Phon e Number [address] [address] (ABNORMAL) BASIC METABOLIC PANEL (08/01/2014 6:24 AM [...] Est., If >60 >60 [facility] Black ml/min/1.7 [facility] 3m2 Specimen Anatomical Collection Method Collection Time Receive d Time (Source) Location / / Volume Laterality 08/01/2014 6:24 AM 4 6:25 CDT AM CDT [facility] - 08/01/2014 7:12 AM CD T Performed at [facility] , [address] [place] [address] Cooper Shelley MD LAB_1 Performing Organization Address City/[facility]/ZIP [facility] Phon e Number [address] [address] (ABNORMAL) GLUCOSE, WHOLE BLOOD POC (07/31/2014 11:01 PM CDT) P athologist Signature Glucose, Whole 220 (H) 70 - 180 [facility] Blood mg/dl [facility] Comment: Point of Care Testing RN Notified Specimen Anatomical Collection Method Collection Time Receive d Time (Source) Location / / Volume Laterality 07/31/2014 11:01 07/31/2014 PM CDT 11:04 PM CDT Cooper Shelley MD LAB_1 Performing Organization Address City/[facility]/ZIP [facility] Phon e Number [address] [address] (ABNORMAL) GLUCOSE, WHOLE BLOOD POC (07/31/2014 8:58 PM CDT) athologist Signature Glucose, Whole 201 (H) 70 - 180 [facility] Blood mg/dl [facility] Comment: Point of Care Testing RN Notified Specimen Anatomical Collection Method Collection Time Receive d Time (Source) Location / / Volume Laterality 07/31/2014 8:58 PM 4 9:23 CDT PM CDT Cooper Shelley MD LAB_1 Performing Organization Address City/[facility]/ZIP Code Phon e Number [address] [address] (ABNORMAL) GLUCOSE, WHOLE BLOOD POC (07/31/2014 5:45 PM CDT) athologist Signature Glucose, Whole 192 (H) 70 - 180 [facility] Blood mg/dl [facility] Comment: Point of Care Testing RN Notified Specimen Anatomical Collection Method Collection Time Receive d Time (Source) Location / / Volume Laterality 07/31/2014 5:45 PM 4 5:47 CDT PM CDT Cooper Shelley MD LAB_1 Performing Organization Address City/[facility]/ZIP [facility] Phon e Number [address] [address] GLUCOSE, WHOLE BLOOD POC (07/31/2014 1:07 PM CDT) athologist Signature Glucose, Whole 175 70 - 180 [facility] Blood mg/dl [facility] Comment: Point of Care Testing RN Notified Specimen Anatomical Collection Method Collection Time Receive d Time (Source) Location / / Volume Laterality 07/31/2014 1:07 PM 4 1:09 CDT PM CDT Cooper Shelley MD LAB_1 Performing Organization Address City/[facility] Phon e Number [address] [address] [address] HEAD WITHOUT CONTRAST (07/31/2014 8:24 AM [...] Ab, IgM Reference range: See (NOTE) LIANNE WILLETT Unit: MPL Cardiolipin (NOTE) [facility] Ab, IgM ?? Value ? Interpretation HOSPITAL ?? ----- ? < or = 12 ?? Negative ?? 13 - 20 ? Indeterminate ?? 21 - 80 ? Low to Medium Positive ?? >80 ? High Positive Comment See (NOTE) [facility] Reference range: See (NOTE) LIANNE WILLETT Comment (NOTE) [facility] The antiphospholipid antibody syndrome (APS) is a [...] [employer] 2006: 4; ??295 Test performed at [facility] [address] ??[id number] Director: JUANCARLOS FINCH MD Specimen Anatomical Collection Method Collection Time Receive d Time (Source) Location / / Volume Laterality 07/31/2014 8:01 AM 4 8:02 CDT AM CDT Shin Salvador MD LAB_1 Performing Organization Address City/State/ZIP Code Phon e Number [address] [address] (ABNORMAL) BASIC METABOLIC PANEL (07/31/2014 8:01 AM [...] Est., If >60 >60 [facility] Black ml/min/1.7 [facility] 3m2 Specimen Anatomical Collection Method Collection Time Receive d Time (Source) Location / / Volume Laterality 07/31/2014 8:01 AM 4 8:02 CDT AM CDT Narrative [facility] - 07/31/2014 8:32 AM CD T Performed at [facility] , [address] [place] [address] Shin Salvador MD LAB_1 Performing Organization Address City/[facility]/ZIP Code Phon e Number [address] [address] GLUCOSE, WHOLE BLOOD POC (07/31/2014 8:00 AM CDT) P athologist Signature Glucose, Whole 160 70 - 180 [facility] Blood mg/dl [facility] Comment: Point of Care Testing RN Notified Specimen Anatomical Collection Method Collection Time Receive d Time (Source) Location / / Volume Laterality 07/31/2014 8:00 AM 4 8:03 CDT AM CDT Cooper Shelley MD LAB_1 Performing Organization Address City/[facility]/ZIP [facility] Phon e Number [address] [address] (ABNORMAL) GLUCOSE, WHOLE BLOOD POC (07/30/2014 9:44 PM CDT) athologist Signature Glucose, Whole 217 (H) 70 - 180 [facility] Blood mg/dl [facility] Comment: Point of Care Testing RN Notified Specimen Anatomical Collection Method Collection Time Receive d Time (Source) Location / / Volume Laterality 07/30/2014 9:44 PM 4 CDT 10:08 PM CDT Cooper Shelley MD LAB_1 Performing Organization Address City/[facility]/ZIP [facility] Phon e Number [address] [address] LUPUS ANTICOAGULANT WORKUP (07/30/2014 6:32 PM CDT) [facility] gist Method Time Signature Protime 14.0 12.0 - [facility] 14.5 sec HOSPITAL INR 1.1 0.9 - 1.1 [facility] PTT 26.0 24.0 - [facility] 37.0 [...] PM 4 6:38 CDT PM CDT Narrative [facility] - 08/02/2014 10:55 AM C DT Performed at [facility] , [address] [place] [id number] Cooper Shelley MD LAB_1 Performing Organization Address City/[facility]/ZIP Code Phon e Number [address] [address] GLUCOSE, WHOLE BLOOD POC (07/30/2014 5:50 PM CDT) athologist Signature Glucose, Whole 118 70 - 180 [facility] Blood mg/dl [facility] Comment: Point of Care Testing RN Notified Specimen Anatomical Collection Method Collection Time Receive d Time (Source) Location / / Volume Laterality 07/30/2014 5:50 PM 4 5:54 CDT PM CDT Cooper Shelley MD LAB_1 Performing Organization Address City/State/ZIP Code Phon e Number [address] [address] [place] VENOUS DUPLEX LOWER EXTREMITY BILATERAL (07/30/2014 [...] 1. ??Worsening of the DVT in the [facility] lower extremities. Large amount of nonocclusive thrombus [...] contrast. CONTRAST: None. SEDATION: None. COMPARISON: [facility] [place] perform ed at 6:15 AM [...] contrast. CONTRAST: None. SEDATION: None. COMPARISON: [facility] [place] [facility] [place] perform ed at 6:15 AM [...] WHOLE BLOOD POC (07/30/2014 12:44 PM CDT) athologist Signature Glucose, Whole 109 70 - 180 [facility] Blood mg/dl [facility] Comment: Point of Care Testing No Action Required Specimen Anatomical Collection Method Collection Time Receive d Time (Source) Location / / Volume Laterality 07/30/2014 12:44 07/30/2014 PM CDT 12:50 PM CDT Cooper Shelley MD LAB_1 Performing Organization Address City/State/ZIP Code Phon e Number [facility] [address] [place] [address] [address] GLUCOSE, WHOLE BLOOD POC (07/30/2014 8:02 AM CDT) athologist Signature Glucose, Whole 94 70 - 180 [facility] Blood mg/dl [facility] Comment: Point of Care Testing No Action Required Specimen Anatomical Collection Method Collection Time Receive d Time (Source) Location / / Volume Laterality 07/30/2014 8:02 AM 4 8:16 CDT AM CDT Cooper Shelley MD LAB_1 Performing Organization Address [facility] Phon e Number [address] [address] (ABNORMAL) INR/PROTIME (07/30/2014 6:56 AM CDT) athologist Signature Protime 14.9 (H) 12.0 - 14.5 [facility] INR 1.2 (H) 0.9 - 1.1 [facility] Specimen Anatomical Collection Method Collection Time Receive d Time (Source) Location / / Volume Laterality 07/30/2014 6:56 AM 4 6:57 CDT AM CDT [facility] - 07/30/2014 7:57 AM CD T Performed at [facility] , [address] [place] [address] Douglas Hays PA-C LAB_1 Performing Organization Address [facility] Phon e Number [address] [address] (ABNORMAL) HEMOGRAM/PLTS (07/30/2014 6:56 AM CDT) athologist Signature WBC 11.0 4.0 - 11.0 [facility] RBC 3.87 (L) 4.5 - 5.9 [facility] Hemoglobin 11.8 (L) 13.5 - 17.5 [facility] g/dl [facility] HCT 35.6 (L) 41.0 - 53.0 [facility] MCV 92.0 80 - 100 [facility] MCH 30.5 26 - 34 pg [facility] MCHC 33.1 32 - 36 [facility] RDW 13.7 11.5 - 14.5 [facility] Platelets 177 150 - 450 [facility] MPV 10.5 9.4 - 12.4 [facility] Specimen Anatomical Collection Method Collection Time Receive d Time (Source) Location / / Volume Laterality 07/30/2014 6:56 AM 4 6:57 CDT AM CDT Narrative [facility] - 07/30/2014 7:24 AM CD T Performed at [facility] , [address] [place] [address] Douglas Hays PA-C LAB_1 Performing Organization Address [facility] Phon e Number [address] [address] (ABNORMAL) BASIC METABOLIC PANEL (07/30/2014 6:56 AM CDT) athologist Signature Sodium 132 (L) 135 - [...] Est., If >60 >60 [facility] Black ml/min/1.7 [facility] 3m2 Specimen Anatomical Collection Method Collection Time Receive d Time (Source) Location / / Volume Laterality 07/30/2014 6:56 AM 4 6:57 CDT AM CDT [facility] - 07/30/2014 7:40 AM CD T Performed at [facility] , [address] [place] [address] Douglas Hays PA-C LAB_1 Performing Organization Address City/[facility] Phon e Number [address] [address] [address] ANGIOGRAPHY HEAD (07/30/2014 6:27 AM CDT) [...] Cooper Shelley MD LAB_1 Performing Organization Address City/[facility]/ZIP [facility] Phon e Number [address] [address] GLUCOSE, WHOLE BLOOD POC (07/29/2014 11:57 AM CDT) athologist Signature Glucose, Whole 130 70 - 180 [facility] Blood mg/dl [facility] Comment: Point of Care Testing RN Notified Specimen Anatomical Collection Method Collection Time Receive d Time (Source) Location / / Volume Laterality 07/29/2014 11:57 07/29/2014 AM CDT 12:13 PM CDT Cooper Shelley MD LAB_1 Performing Organization Address City/State/[facility] Phon e Number [address] [address] GLUCOSE, WHOLE BLOOD POC (07/29/2014 8:19 AM CDT) athologist Signature Glucose, Whole 143 70 - 180 [facility] Blood mg/dl [facility] Comment: Point of Care Testing RN Notified Specimen Anatomical Collection Method Collection Time Receive d Time (Source) Location / / Volume Laterality 07/29/2014 8:19 AM 4 8:39 CDT AM CDT Cooper Shelley MD LAB_1 Performing Organization Address City/State/ZIP Code Phon e Number [address] [address] [address] HEAD WITHOUT CONTRAST (07/29/2014 4:30 AM [...] which extends approximately 1 cm intracranially. Molly RAMSEY-Jey RAD CT (ABNORMAL) BASIC METABOLIC PANEL (07/29/2014 4:10 AM CDT) athologist Signature Sodium 136 135 - 145 [facility] mmol/L [facility]OS[facility]ITAL Potassium 4.8 3.5 - 5.3 [facility] mmol/L [facility] Chloride 99 95 - 106 [facility] mmol/L [facility] CO2 27 22 - 30 [facility] mmol/L [facility] Anion Gap 10 7 - 16 [facility] (calc.) mmol/L [facility] Glucose 186 (H) 70 - 180 [facility] mg/dl [facility] Calcium 9.3 8.4 - 10.2 [facility] mg/dl [facility] BUN 10 7 - 20 [facility] mg/dl [facility] Creatinine 0.71 0.66 - [facility] 1.25 mg/dl [facility]OSPITAL GFR, Estimated >60 >60 [facility] ml/min/1.7 [facility] 3m2 GFR, Est., If >60 >60 [facility] Black ml/min/1.7 [facility] 3m2 Specimen Anatomical Collection Method Collection Time Receive d Time (Source) Location / / Volume Laterality 07/29/2014 4:10 AM 4 4:11 CDT AM CDT [facility] - 07/29/2014 4:26 AM CD T Performed at [facility] , [address] [place] [address] Cooper Shelley MD LAB_1 Performing Organization Address City/State/ZIP Code Phon e Number [address] [address] (ABNORMAL) HGB A1C (07/29/2014 3:19 AM CDT) athologist Signature Hgb A1c 6.4 (H) 4.3 - 6.1 % [facility] Comment: The usual A1C goal for people with diabe jeremy, age 18-75, is <8.0%. Physicians may recommend a higher or lo wer goal for specific individuals. Specimen Anatomical Collection Method Collection Time Receive d Time (Source) Location / / Volume Laterality 07/29/2014 3:19 AM 4 3:22 CDT AM CDT [facility] - 07/29/2014 12:53 PM C DT Performed at [facility], [address] [place] [address] ??[id number] Jamaica Wei PA-C LAB_1 Performing Organization Address City/State/ZIP Code Phon e Number [address] [address] ADD ON LAB ORDERS(SPECIMEN IN LAB) (07/29/2014 3:19 AM CDT) [facility] gist Method Time Signature Add On Test Additional [facility] Ordered by Specimen Anatomical Collection Method Collection Time Receive d Time (Source) Location / / Volume Laterality 07/29/2014 3:19 AM 4 3:22 CDT AM CDT [facility] - 07/29/2014 9:01 AM CD T Performed at [facility] , [address] [place] [address] Jamaica Wei PA-C LAB_1 Performing Organization Address City/[facility]/ZIP Code Phon e Number [address] [address] (ABNORMAL) INR/PROTIME (07/29/2014 3:19 AM CDT) athologist Signature Protime 15.2 (H) 12.0 - 14.5 [facility] INR 1.2 (H) 0.9 - 1.1 [facility] Specimen Anatomical Collection Method Collection Time Receive d Time (Source) Location / / Volume Laterality 07/29/2014 3:19 AM 4 3:22 CDT AM CDT [facility] - 07/29/2014 3:38 AM CD T Performed at [facility] , [address] [place] [address] Cooper Shelley MD LAB_1 Performing Organization Address City/[facility] Code Phon e Number [address] [address] (ABNORMAL) Hemogram with Platelets (07/29/2014 3:19 AM CDT) P athologist Signature WBC 7.7 4.0 - 11.0 [facility] RBC 4.36 (L) 4.5 - 5.9 [facility] Hemoglobin 13.3 (L) 13.5 - 17.5 [facility] g/dl [facility]OSPITAL HCT 39.3 (L) 41.0 - 53.0 [facility]OSPITAL MCV 90.1 80 - 100 fl [facility] MCH 30.5 26 - 34 pg [facility] MCHC 33.8 32 - 36 [facility] g/dl [facility]OSPITAL RDW 13.4 11.5 - 14.5 [facility] HOSPITAL Platelets 173 150 - 450 [facility] MPV 11.6 9.4 - 12.4 [facility] Specimen Anatomical Collection Method Collection Time Receive d Time (Source) Location / / Volume Laterality 07/29/2014 3:19 AM 4 3:22 CDT AM CDT [facility] - 07/29/2014 3:30 AM CD T Performed at [facility] , [address] [place] [address] Cooper Shelley MD LAB_1 Performing Organization Address City/[facility] Phon e Number [address] [address] MRSA ADMIT SCREEN (07/28/2014 10:30 PM CDT) Component Value Ref Test Analysis Performed At [facility] gist Range Method Time Signature Specimen Nose Swab [facility] Description [facility]OSPITAL Special Unspecified [facility] Requests [facility]OSPITAL PCR No MRSA DNA [facility] Detected [facility]OSPITAL Culture No Methicillin [facility] Resistant [facility]ITAL Staphylococcus aureus Report Status Final 07/29/2014 [facility] Specimen Anatomical Collection Method Collection Time Receive d Time (Source) Location / / Volume Laterality Nasal swab taken 07/28/2014 10:30 07/29/2 014 4:45 (situation) PM CDT AM CDT [facility] - 07/29/2014 6:40 AM CD T Performed at [facility] , [address] [place] [address] Cooper Shelley MD LAB_1 Performing Organization Address [facility] Phon e Number [address] [address] GLUCOSE, WHOLE BLOOD POC (07/28/2014 10:21 PM CDT) athologist Signature Glucose, Whole 133 70 - 180 [facility] Blood mg/dl [facility] Comment: Point of Care Testing RN Notified Specimen Anatomical Collection Method Collection Time Receive d Time (Source) Location / / Volume Laterality 07/28/2014 10:21 07/28/2014 PM CDT 10:27 PM CDT Cooper Shelley MD LAB_1 Performing Organization Address City/[facility]/ZIP Code Phon e Number [address] [address] GLUCOSE, WHOLE BLOOD POC (07/28/2014 9:09 PM CDT) athologist Signature Glucose, Whole 122 70 - 180 [facility] Blood mg/dl [facility] Comment: Point of Care Testing RN Notified Specimen Anatomical Collection Method Collection Time Receive d Time (Source) Location / / Volume Laterality 07/28/2014 9:09 PM 4 9:15 CDT PM CDT Cooper Shelley MD LAB_1 Performing Organization Address City/[facility]/ZIP Code Phon e Number [address] [address] BB HOLD TUBE ([facility] ONLY) (07/28/2014 7:40 PM CDT) [facility] Method Time Signature BB Hold Tube Blood Bank [facility] HOSPITAL expires in 3 days Specimen Anatomical Collection Method Collection Time Receive d Time (Source) Location / / Volume Laterality 07/28/2014 7:40 PM 4 8:17 CDT PM CDT [facility] - 07/28/2014 8:19 PM CD T Performed at [facility] , [address] [place] [id number] Cooper Shelley MD LAB_1 Performing Organization Address City/[facility]/ZIP Code Phon e Number [address] [address] BB HOLD TUBE ([facility] ONLY) (07/28/2014 7:35 PM CDT) [facility] gist Method Time Signature BB Hold Tube Blood Bank [facility] save tube HOSPITAL expires in 3 days Specimen Anatomical Collection Method Collection Time Receive d Time (Source) Location / / Volume Laterality 07/28/2014 7:35 PM 4 8:18 CDT PM CDT Narrative [facility] - 07/28/2014 8:20 PM CD T Performed at [facility] , [address] [place] [address] Cooper Shelley MD LAB_1 Performing Organization Address City/[facility]/ZIP Code Phon e Number [address] [address] GLUCOSE, WHOLE BLOOD POC (07/28/2014 6:42 PM CDT) athologist Signature Glucose, Whole 129 70 - 180 [facility] Blood mg/dl [facility]OSPITAL Comment: Point of Care Testing No Action Required Specimen Anatomical Collection Method Collection Time Receive d Time (Source) Location / / Volume Laterality 07/28/2014 6:42 PM 4 6:50 CDT PM CDT Cooper Shelley MD LAB_1 Performing Organization Address City/[facility]/ZIP Code Phon e Number [address] [address] ABO Rh & Antibody Screen (Type & Screen) (07/28/2014 5:58 PM CDT) [facility] gist Method Time Signature Crossmatch 07/31/2014 [facility] Expires HOSPITAL ABO/RH(D) A NEGATIVE [facility] Antibody NEGATIVE [facility] Specimen Anatomical Collection Method Collection Time Receive d Time (Source) Location / / Volume Laterality 07/28/2014 5:58 PM 4 5:59 CDT PM CDT Narrative [facility] - 07/28/2014 6:54 PM CD T Performed at [facility] , [address] [place] [address] Cooper Shelley MD LAB_1 Performing Organization Address City/[facility]/ZIP Code Phon e Number [address] [address] (ABNORMAL) aPTT (Activated Partial Thromboplastin Time) (07/28/2014 5:58 PM CDT) athologist [facility] PTT 51.2 (H) 24.0 - 37.0 [facility] Specimen Anatomical Collection Method Collection Time Receive d Time (Source) Location / / Volume Laterality 07/28/2014 5:58 PM 4 5:59 CDT PM CDT [facility] - 07/28/2014 6:30 PM CD T Performed at [facility] , [address] [place] [address] Cooper Shelley MD LAB_1 Performing Organization Address [facility] Phon e Number [address] [address] (ABNORMAL) INR/Protime (PT/INR) (07/28/2014 5:58 PM CDT) athologist [facility] Protime 15.3 (H) 12.0 - 14.5 [facility] INR 1.2 (H) 0.9 - 1.1 [facility] Specimen Anatomical Collection Method Collection Time Receive d Time (Source) Location / / Volume Laterality 07/28/2014 5:58 PM 4 5:59 CDT PM CDT [facility] - 07/28/2014 6:30 PM CD T Performed at [facility] , [address] [place] [id number] Cooper Shelley MD LAB_1 Performing Organization Address City/[facility]/ZIP [facility] Phon e Number [address] [address] (ABNORMAL) Basic Metabolic Panel (BUN, Ca, Cl, CO2, Creat, Gluc, K, Na) (07/28/2014 5:58 PM CDT) athologist Signature Sodium 134 (L) 135 - 145 [facility] mmol/L [facility]OS[facility] Potassium 4.6 3.5 - 5.3 [facility] mmol/L [facility] Chloride 96 95 - 106 [facility] mmol/L [facility] CO2 27 22 - 30 [facility] mmol/L [facility] Anion Gap 11 7 - 16 [facility] (calc.) mmol/L [facility]ITAL Glucose 135 70 - 180 [facility] mg/dl [facility] Calcium 9.6 8.4 - 10.2 [facility] mg/dl [facility] BUN 12 7 - 20 [facility] mg/dl [facility] Creatinine 0.71 0.66 - [facility] 1.25 mg/dl [facility]OSPITAL GFR, Estimated >60 >60 [facility] ml/min/1.7 [facility] 3m2 GFR, Est., If >60 >60 [facility] Black ml/min/1.7 [facility] 3m2 Specimen Anatomical Collection Method Collection Time Receive d Time (Source) Location / / Volume Laterality 07/28/2014 5:58 PM 4 5:59 CDT PM CDT [facility] - 07/28/2014 6:30 PM CD T Performed at [facility] , [address] [place] [address] Cooper Shelley MD LAB_1 Performing Organization Address City/State/ZIP Code Phon e Number [address] [id number] [address] [address] (ABNORMAL) Hemogram with Platelets (07/28/2014 5:58 PM CDT) athologist Signature WBC 7.0 4.0 - 11.0 [facility] RBC 4.27 (L) 4.5 - 5.9 [facility] Hemoglobin 13.0 (L) 13.5 - 17.5 [facility] g/dl [facility] HCT 38.6 (L) 41.0 - 53.0 [facility] MCV 90.4 80 - 100 [facility] MCH 30.4 26 - 34 pg [facility] MCHC 33.7 32 - 36 [facility] g/dl HOSPITAL RDW 13.3 11.5 - 14.5 [facility] Platelets 173 150 - 450 [facility] MPV 10.7 9.4 - 12.4 [facility] Specimen Anatomical Collection Method Collection Time Receive d Time (Source) Location / / Volume Laterality 07/28/2014 5:58 PM 4 5:59 CDT PM CDT [facility] - 07/28/2014 6:21 PM CD T Performed at [facility] , [address] [place] [id number] Cooper Shelley MD LAB_1 Performing Organization Address City/State/ZIP Code Phon e Number [address] [address] EKG IP (07/28/2014 12:00 AM CDT) Specimen [...] neuritis, and radiculitis, un specified Orthostatic hypotension Subdural hematoma (HRC) Subdural hemorrhage Plan of Care - Aidee Forbes RN - 08/02/2014 7:27 PM CDT [facility]PITAL Discharge Note - Nursing Admission Date/Time: 07/28/2014 4:05 PM Attending MD: Cooepr Shelley MD Patient discharged: to Home. Discharge [...] of all instructions. Left floor with paper [place] p rescription, this wasn't filled by [facility] pharmacy. Will take and fill at [facility]. All medical devices (telemetry/IV/etc) unless otherwise ordered, have been removed and stored: Yes Report Completed by: Aidee Parks RN --- End of Report --- Plan of Care - Priti Hickey RN - 08/02/2014 4:34 PM CDT Problem: General Plan of Care Goal: Discharge Needs Assessment 08/02/14 1627 Care Coordination Care Team Actions Needed MD medical clearance;PT/OT consult;patient requires further observation [facility] Plan of Care Note Assessment: [...] Forbes RN - 08/02/2014 3:48 PM CDT [facility]. MD Notified Note Name of [...] Luke Siegel - 08/02/2014 12:22 PM CDT [facility] Complementary Care Therapy Note Complementary [...] 12:25 PM Date: 08/02/2014 Report Completed by: RICK Dunlap Pager # [phone] Thank you for referring this pt to [facility]. --- End of Report --- Plan of Care - Stella Parra RN - 08/02/2014 7:54 AM CDT Problem: General Plan of Care Goal: Plan of Care Review The patient and/or their dental sales representative will communicate an understanding of their [...] Obstetrics) ??? Potential Problems (Perioperative Period) Ongoing [facility] Plan of Care Note Assessment: pain, activity. Plan: will continue to assess and medicate as needed for pain. Will encourage increase activity. Subjective: rates pain on the back 3/10, tolerable relief stated with [place]. Per patient tired and refused to get up in chair. Objective: patient is alert and oriented x4. Adequate pain relief with [place]. Dangle at side of bed for dinner. [place] patent. 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 Completed 1L of IVF. Had 75% for dinner. --- End of Report --- Plan of Care - Mónica Saldana RN - 08/01/2014 3:03 PM CDT Problem: General Plan of Care Goal: Plan of Care Review The patient and/or their dental sales representative will communicate an understanding of their plan of care. Outcome: Ongoing [facility] Plan of Care Note Assessment: [...] Saldana RN - 08/01/2014 10:52 AM CDT [facility]. MD Notified Note Name of MD notified: Ehren Time of MD notification: 1000 hours and 52 minutes Reason: BP 71/43 sitting in a chair. HR 96. Pls advise. Response: Mónica Saldana RN --- End of Report --- Plan of Care - Cortney Montez RN - 08/01/2014 8:07 AM CDT Problem: Perioperative Period (Adult, Obstetrics) Intervention: Pressure Reduction Techniques [facility] Plan of Care Note Assessment: [...] Saldana RN - 08/01/2014 8:07 AM CDT [facility]. MD Notified Note Name of MD notified: Ehren Time of MD notification: 0800 hours and [...] Obstetrics) ??? Potential Problems (Perioperative Period) Ongoing [facility] Plan of Care Note Assessment: [...] (reference Perioperative Period (Adult, Obstetrics) CPG) 07/31/14 3968 Goal/Outcome Evaluation Problems Assessed (Perioperative Period) situational response;acute pain;other (see comments) [facility] Plan of Care Note Assessment: Neuro status [...] of Care Review The patient and/or their dental sales representative will communicate an understanding of their [...] Nieto RN - 07/30/2014 7:08 PM CDT [facility] Rapid Response Team Note Time, Date & Location Date of Call: 07/30/14 Person Requesting Team: RN Location of Call : [facility] Time Called: 1314 Time Team Arrived: 1316 [...] in current unit Team Members Present Nurse: Tania Nieto, Teena Medina Respiratory Care: Physician: Dr Gene Nieto, RN --- End of Report --- Plan of Care - Quan Garcia RN - 07/30/2014 3:11 PM CDT [facility] Plan of Care Note Assessment: [...] this shift at approximately 1305 this shift, LABORATORY TECHNOLOGIST called with MD presence, staff came and [...] to have resided at approximately 1335, see MD LABORATORY TECHNOLOGIST note, pt has incision to top of head that is stapled, old drainage to note, drain was D/C'd this shift, at approximately 1200, just prior to LABORATORY TECHNOLOGIST, pt has adequate amounts of urine via de la cruz, colostomy has small amount of soft stool to note, pt has been up and into the WC with assist of 2 and use of charis, to lerates well. --- End of Report --- Plan of Care - Luke Siegel - 07/30/2014 1:21 PM CDT [facility] Complementary Care Therapy Missed Visit Note [facility] attempted to see patient today for Massage Therapy. Unable to see patient for this reason: LABORATORY TECHNOLOGIST activated at 1:21pm. Will attempt again as soon as possible. Time: 4:14 PM Date: 07/30/2014 Report Completed by: Luke Siegel [facility] Pager # [phone] Thank you for referring this pt to [facility]. --- End of Report --- Plan of Care - Karo Murray RN - 07/30/2014 7:51 AM CDT Problem: General Plan of Care Goal: Plan of Care Review The patient and/or their dental sales representative will communicate an understanding of their plan of care. Outcome: Ongoing 07/30/14 0750 Coping/Psychosocial Response Interventions Plan of Care Reviewed with patient;spouse Plan of Care Progress progress toward functional goals is gradual Plan of Care - Aidee Forbes RN - 07/29/2014 11:10 PM CDT [facility] Nursing Transfer Note (To/From ICU / Progressive Care) Admission Date/Time: 07/28/2014 4:05 PM Time of transfer: 2134 Transfer from room #: SICU Accepting nursing unit: S10 Valuables/belongings sent with patient?: Yes Dentures: No Glasses/Contacts: Glasses Hearing Aid: N/A Transported by: Bed Family notified of unit transfer and change in patients condition: Yes General condition of patient at time of transfer: A&0 X 4. Neuro/cms intact. Client Advocate strong BUE. Denies pain or headache. at [...] Report --- Plan of Care - Shantanu Fonseca, VALERIE - 07/29/2014 6:59 PM CDT Problem: Perioperative Period (Adult, Obstetrics) Intervention: Pressure Reduction Devices [facility] Plan of Care Note Assessment: skin integrity Plan: turn patient to preserve skin Subjective: pt awake and oriented. Makes needs for turns known. in room most of day assisting in cares. Multiple pillows used for elevation of extremities. Objective: skin intact and patient comfortable. --- End of Report --- Plan of Care - Mitch Kirkland - 07/29/2014 5:17 PM CDT [facility]OSP[facility] RESIDENTIAL LIFE DIRECTOR NOTE - The pt received Sacrament of the Sick (anointing) today. Fr. Mitch Kirkland [facility] Plan of Care - Archana Pace - 07/29/2014 10:47 AM CDT [facility] Cook Jelly Department Note Machine Welder Notes: Initial visit with Jeff and family present at the bedside. Jeff shares he is doing well after surgery and hopes to transfer out of SICU today. Jeff & family are from [place] and Jeff is involved in his parish there. He would appreciate having the hospital senior java j2ee developer come by to provide the sacrament of the sick. I informed him the hospital senior java j2ee developer is not available today but may be in the hospital this evening, if not then definitely tomorrow morning. Interventions Offered: Introduction, supportive listening, blessing, update pt/family on senior java j2ee developer availability. Plan: I have left a message for the hospital senior java j2ee developer to see pt tonight (if the senior java j2ee developer is in-house) or tomorrow for sure. Cook Jelly remains available to pt and/or family for spiritual and emotional support asneeded or requested. Report Completed by: Archana Pace M.Div, [facility], Staff Machine Welder --- End of Report --- Plan of Care - Jodi Ordonez RN - 07/29/2014 7:38 AM CDT Problem: General Plan of Care Goal: Plan of Care Review The patient and/or their dental sales representative will communicate an understanding of their plan of care. Outcome: Ongoing 07/28/14185407/29/14 0400 Coping/Psychosocial Response Interventions Plan of Care Reviewed with -- patient;family Referrals Interdisciplinary Rounds done with: provider -- Plan of Care Progress no change -- Plan of Care - Malika Maradiaga RN - 07/28/2014 6:58 PM CDT Problem: General Plan of Care Goal: Plan of Care Review The patient and/or their dental sales representative will communicate an understanding of their plan of care. Outcome: Ongoing 07/28/141854 Coping/Psychosocial Response Interventions Plan of Care Reviewed with patient;family Referrals Interdisciplinary Rounds done with: provider Plan of Care Progress no change documented in this encounter Active and Recently Administered Medications Times are shown in CDT. Scheduled Medication Order 07/31/2014 08/01/2014 08/02/2014 atorvastatin (aka LIPITOR) tablet 40 mg (CANCELED) 201 7 (Given - Provider: Carlene Silver RN) 2049 (Given - Provider: Carlene Silver RN) 40 [...] Oral, Q6H (NON-STND), First dose o n 08/02/14 at 1200, Until Discontinued docusate sodium (aka COLACE) capsule 100 mg (CANCELED) 0842 (Given - Provider: rPiti Hickey RN)2017 (Given - Provider: Carlene Silver RN) 0900 (Given - Provider: Mónica Saldana RN) 100 mg, Oral, BID, First dose on Sat07/28/14 at 2144, Until Disc ontinued DULoxetine (aka CYMBALTA) delayed release capsule 80 m g (CANCELED) 0842 (Given - Provider: Priti Hickey RN) 09 (Given - Provider: Mónica Neville i, RN) 0812 (Given - Provider: Priti clark RN) 80 mg, Oral, DAILY, First dose on Sat07/28/14 at 1747, Until Dis continued famotidine (aka PEPCID) tablet 20 mg 0842 (Given - Pro vider: Priti Hickey RN)2019 (Given - Provider: Carlene Silver RN) 09 (Given - Provider: Mónica Saldana RN)2048 (Given [...] Stella Parra RN)1300 (Given - Provider: Priti Hickey RN) 1,000 mg, Oral, Q12H (NON-STND), First d ose on 07/31/14 at 0000, Until Discontinued LORazepam (aka ATIVAN) tablet 1 mg (CANCELED) 0842 (Gi lore - Provider: Priti Hickey RN)1402 (Given - Provider: Priti Hickey RN)2018 (Given - Provider: Carlene Silver RN) 0900 (Given - Provider: Mónica Neville i, RN)1539 (Given - Provider: Mónica Saldana RN)2049 (Given - Provider: Carlene Silver RN) 0813 (Given - Provider: Priti clark RN)1407 (Given - Provider: Priti Hickey RN) 1 mg, Oral, TID, First dose on Sat07/28/14 at 2000, Until Discon tinued metoPROLOL tartrate (aka LOPRESSOR) tablet 12.5 mg 201 8 (Given - Provider: Carlene Silver RN) 0859 (Given - Provider: Mónica Neville i, RN)2050 (Given - Provider: Carlene Silver RN) 0813 (Given - Provider: Priti clark RN) 12.5 mg, Oral, BID, First dose on 07/31/14 at 2000, Until Dis continued metoPROLOL tartrate (aka LOPRESSOR) tablet 25 mg (CANC ELED) 0842 (Given - Provider: Priti Hickey RN) 25 mg, Oral, BID, First dose on Sat07/29/14 at 1100, Until Disco ntinued NaCl 0.9 % infusion 1 L (COMPLETED) 1335 (Started - Provider: Mónica Saldana RN) 1 L, at 100 mL/hr, IV, ONCE, 1 dose, Sat08/01/14 at 1146 polyethylene glycol (aka MIRALAX) oral [...] 2017 (Given - Provider: Carlene Silver RN) 204 (Given - Provider: Carlene Silver RN) 1 Tab, Oral, HS, First dose on Sat07/28/14 at 2100, Until Discon tinued sodium chloride tablet 2 g 1539 (Given - Provider: Mónica Saldana RN)2049 (Given - Provider: Carlene Silver RN) 0812 (Given - Provider: Priti Hickey RN)1323 (Given - Provider: Priti Hickey RN) 2 g, Oral, TID, First dose on Sat08/01/14 at 1400, Until Discont inued PRN Medication Order 07/31/2014 08/01/2014 08/02/2014 hydrALAZINE (aka APRESOLINE) tablet 25 mg (CANCELED) 1444 (Given - Provider: Priti Hickey RN) 25 mg, Oral, Q6H PRN, Starting Sat at 2052, Until Discontinued, SBP > 150 HYDROcodone-acetaminophen (aka NORCO) 5-325 MG tablet TABS 1-2 Tab 0853 (Given - Provider: Priti K Egerdahl, RN) 0225 (Given - Provider: Cortney alfaro RN)0913 (Given - Provider: Mónica Saldana, VALERIE)1805 (Given - Provider: Carlene Silver, VALERIE) 0520 (Given - Provider: Stella kathleen RN) 1-2 Tab, Oral, Q4H PRN, Starting 07/28/14 at 2026, Until Discontinued, Pain insulin lispro (aka humALOG) injection vial 1-10 Units (CANCELED) 0954 (Given - Provider: Priti Hickey, VALERIE)1402 (Given - Provider: Priti Hickey, VALERIE)1815 (Given - Provider: Carlene Silver RN - Comment: FSG is [phone] (Given - Provider: Carlene Silver RN - Comment: fsg IS 220) 1259 (Given - Provider: Kate Ford RN)1806 (Given - Provider: Carlene Silver RN - Comment: FSG is [phone] (Given - Provider: Carlene Silver RN - Comment: FSG is [phone] 1324 (Given - Provider: Priti Hickey, VALERIE) 1-10 Units, SC, PRN BASED ON BLOOD SUGAR , Starting [place] 07/29/14 at 0852, Until Discontinued, Blood Sugar > documented in this encounter
--- OUTSIDE RECORDS SUMMARY | 2022-06-20 02:27 | XMS_ITS | Encounter Summary ---
:1945 Author [facility] Address [address], [place] [address] Care Team Providers Name Role Phone Franklin Squires MD Primary Care Provider Encounter Details Date Type Department Care Team Description 03/11/2014 [facility] [address] Zelalem Cohen EMPI Interventional Pain DO Management [address] [place] [address] [phone] (Wo rk) Social History Tobacco Use Types [...] on filedocumented in this encounter Care Teams Dryerman/Woman Relationship Specialty Start Date End Date Franklin Squires MD PCP - General Family Practice 03/08/[address] [place] [address] [place] [id number] documented as of this encounter
--- OUTSIDE RECORDS SUMMARY | 2022-06-20 02:27 | XMS_ITS | Encounter Summary ---
:1945 Author Organization [employer] Address [address], [place] [address] Care Team Providers Name Role Phone Unavailable Primary Care Provider Unavailable Reason for Visit Reason Onset Date Comments Other 01/27/2014 Encounter Details Date Type Department Care Team Description 01/27/2014 [facility] 401 Zelalem Cohen, DO Other Interventional Pain Management [address] [place] [address] [place] [address] [phone] Social History Tobacco Use Types Packs/Day Years Used Date Smoking Tobacco: Never Smokeless Tobacco: Never Alcohol Use Standard Drinks/Week Comments No 0 (1 standard drink = 0.6 oz pure alcoho l) Sex Assigned at Date Recorded Male 08/06/2021 5:59 PM CDT documented as of this encounter Nursing Notes Loree Garcia RN - 01/28/2014 3:35 PM CDT Reviewed message below with Oswald. He had numerous questions- answered what I could and deferred to the provider for the ones I could not. He will work with the patient and give us progress reports. Zelalem Cohen MD - 01/28/2014 1:39 PM CDT Yes but try below as well with 's direction Dr. Benito Cohen Loree Garcia RN - 01/28/2014 10:07 AM CDT Received call from Oswald- he was a bit unsure about using this on the patient given his diminished sensation. His idea was to apply it to the patient where he has full sensation so he can show him the readings, then apply it to an area where he has diminished sensation to see what he experiences. Patient has diminished sensation from from about T6 down (per Oswald). Is this okay with the provider? Loree Garcia RN - 01/28/2014 9:14 AM CDT Called and asked if there is anything I can relay to the provider. LMTCB Lin Diaz - 01/27/2014 4:05 PM CDT Oswald is calling from Greg ORNELAS in [facility] stating he would like to speak to Dr Cohen regarding patient. documented in this encounter Plan of Treatment Not on filedocumented as of this encounter Visit Diagnoses Not on filedocumented in this encounter
--- OUTSIDE RECORDS SUMMARY | 2022-06-20 02:27 | XMS_ITS | Encounter Summary ---
:1945 Author Organization [employer] Address [address] [place] [address] Care Team Providers Name Role Phone Unavailable Primary Care Provider Unavailable Reason for Visit Reason Onset Date Comments Increased Symptoms 06/01/2014 worsening pain Encounter Details Date Type Department Care Team Description 06/01/2014 [facility] 401 Vicki Zelalem I ncreased Symptoms Interventional Pain L, DO (worsening pain) Management [address] [place] [address] [phone] Social History Tobacco Use Types Packs/Day Years Used Date Smoking Tobacco: Never Smokeless Tobacco: Never Alcohol Use Standard Drinks/Week Comments No 0 (1 standard drink = 0.6 oz pure alcoho l) Sex Assigned at Date Recorded Male 08/06/2021 5:59 PM CDT documented as of this encounter Nursing Notes Selene Johnson RN - 06/02/2014 3:45 PM CDT Call placed to patient's , and she did state that her husbands pain has increased tremendously over the last couple of months the injections help but only for short periods of time. And nothing really helps. the lumbar MRI was completed and ws sent to he clinic for review. Symptoms have changed since this scan was completed. This typewriter assembler did explain that we will see her on 06-07 with Jodi or Cristine and will have a complete exam to be completed, she did verbalize understanding. Selene Johnson RN 06/02/2014, 3:50 PM Cristine Haddad PA-C - 06/02/2014 2:23 PM CDT Patient had facet steroid injections at both L4-5 and L5-S1 with some relief. Please call patient tosee if he got better relief at one level than the other. If so, we will start with MBB and rhizolysis at that level. Otherwise patient can have MBB and ablation at both levels. Cristine Mir PA-C 06/02/2014, 2:27 PM Loree Garcia RN - 06/02/2014 1:47 PM CDT Patient advised that he should follow up with Dr. Neff's office- will forward this message Zelalem Cohen MD - 06/02/2014 12:32 PM CDT Would f/u with stacey, he ordered injection Triage to his team Dr. Benito Cohen Loree Garcia RN - 06/01/2014 4:47 PM CDT Patient recently had injections at [facility]- were ordered by Stacey, had very short lived relief from these. Also recently saw his PCP about fluctuating blood pressure, they gave him vicodin to take for hispain but that is not helping. Taking 2 tabs q 4 hrs. Patient describes the pain as located in his left low back, hip, glute and into the groin. Describesas sharp and constant, rating it 8/10 and worsened by being in his chair or better with laying down. Reviewed med list- updated it (minus Vicodin). He has no recent imagine or injury/trauma, also denies bowel/bladder issues Provider to review and recommend. Mary Ann Robles - 06/01/2014 11:40 AM CDT Pts calling stating that his lumbar pain is getting very intense and out of hand, unable to seeDr. Tessykel for two months, primary care recommended possibly a pain pump or stronger medications asalternative. Please advise. documented in this encounter Plan of Treatment Not on filedocumented as of this encounter Visit Diagnoses Not on filedocumented in this encounter
--- OUTSIDE RECORDS SUMMARY | 2022-06-20 02:27 | XMS_ITS | Encounter Summary ---
:1945 Author Organization [facility] [address] [address] Care Team Providers Name Role Phone Unavailable Primary Care Provider Unavailable Encounter Details Date Type Department Care Team Description 05/04/2014 Office Visit [facility] May Randle MD [address] [place], [place] [id number] Osteoporosis (Primary Dx); Physical Therapy Trudi Raymundo, PT [address] [place] [address] Paraplegia [address] [place] [address] Social History Tobacco Use Types Packs/Day Years Used Date Smoking Tobacco: Never Smokeless Tobacco: Never Alcohol Use Standard Drinks/Week Comments No 0 (1 standard drink = 0.6 oz pure alcoho l) Sex Assigned at Date Recorded Male 08/06/2021 5:59 PM CDT documented as of this encounter Progress Notes Trudi Raymundo, PT - 05/04/2014 1:13 PM CDT OUTPATIENT PHYSICAL THERAPY: SEATING/MOBILITY EVALUATION Jeff Cullen [id number] 1945 Payor: MEDICARE Plan: MEDICARE [id number] Product Type: Medicare Referring Provider: May Randle provider: Vitaliy Liao) Diagnosis: Paraplegia (344.1), Osteoporosis (733.00) Date of Onset/Date of Surgery: Date of referral 09/07/13 Certification Period: 05/04/14 - 08/01/14 Start of Therapy: 05/04/14 Medicare units used: [...] on: clinical judgement SUBJECTIVE: MEDICAL HISTORY: History/Progression: As Per H & P from 09/07/13: He has a history of thoracic ependymoma for a number of years and initially had his rehabilitation at [facility]. At that point he was still ambulatory [...] uses out of the home but in the home essentially was in the breezy all Day other than some time spent in a recliner or in bed in the evening . In 2010 he was hospitalized for [...] did better with a different type of cushion. He currently has a pressure relieving cushion but just recently had it repaired. He had not been using for several weeks due to a hole in it. He has had right shoulder pain and [...] issues with spasticity in his lower legs for which he takes baclofen. Pain is managed by Lyrica as well as other medications. He would like to ultimately reduce his medication load if at all possible. 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 Additional medical information updated as of today 05/04/14: His Low back has been very sore limiting his ability, injection on 04/03/14 at L4 and L5, and will behaving another one at L5, S1 this week. He has also been having more fluid retention in the legs and feet, not totally resolved with sleeping at night. He sees his primary care provider for this tomorrow. It should be noted that he hasn't used his standing frame for the past 6 weeks or so because his back was too sore to conveyor installer it. It should be noted that this therapist has been working with Mr. Cullen for the past few years to assist him in the proper wheelchair prescription. In October of 2013 we began pursuing power standing. This process has taken longer than anticipated because we had to change DME providers. Because significant time had lapsed the order for the previous power chair had requiring re evaluation specifically to assess his positioning and his ability to understand the power features on this chair for safety reasons. Recent/Planned Surgeries: colostomy placed in 10/06/12. 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 Reason for replacement, replacing power wheelchair for added power features to accommodate his limitations in transfer and his issues with skin integrity. Funding source: Medicare funded current power wheelchair. HOME ENVIRONMENT: Patient lives with spouse/significant other in a house. Entrance: ramp. W/C Accessible Rooms: Yes COMMUNITY ADL: Transportation: van and adapted w/c lift. 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 OBJECTIVE: Estimated body mass index is 0.00 kg/(m^2) as calculated from the following: Height as of 04/15/13: 5' 9 (1.753 m). Weight as of 12/16/13: 0 lb (0 kg). No current weight on file. He was directed to make sure he has an up to date weight on file and willbe getting back to PT. PT tried to take him to a scale that could weigh he and his wheelchair together to find out his most up to date weight. It is imperative that he has an exact weight on file as the power wheelchair he is pursuing has a 260 lb weight capacity. Passive ROM: Bilateral shoulder ROM to 130 degrees then painful. All other UE ROM WNL. Lacks 30 degrees extension in bilateral knees with hip flexion contractures to neutral extension. Active ROM: No active LE ROM consistent with complete spinal cord injury from spinal cord tumor. Hasfull functional ROM of UE's without pain. STRENGTH: UE strength is WNL currently, no pain. Has a history of right rotator cuff tendonitis and left elbow bursitis. No strength in LE's BALANCE: Special Tests: Systemic - seated balance is poor. Requires upper extremity support and requires assist for transfers due to poor sitting trunk control. ALIGNMENT: forward head posture, increased kyphosis. Scapular muscle atrophy interscapularly at siteof his tumor that was removed. He has increased abdominal girth. MUSCLE TONE: LE's flaccid today but has issues with spasticity and tone at times. Has limited trunk control SENSATION: lacks total sensation from mid chest and below History of Pressure sores: yes, history of right greater trochanter pressure sore. Current pressure sores: no EDEMA: noted edematous LE's with pitting edema [...] MOBILITY SKILLS: Bed to w/c transfer: moderate assist. Relies heavily on transferring down hill. generally assists and has to assist more with onset of fatigue. [...] due to poor trunk control and strength Hours spent sitting in w/c each day: time signal wirer wheelchair user. PATIENTS GOALS: Seeking power wheelchair with capacity to power stand, power tilt and power recline as well as power elevate. TREATMENT TODAY: Billy completed Wheelchair management: ( 30 minutes): ruled out other forms of power mobility as well as manual wheelchair. Discussed power options and how they would benefit him functionally as well as help in stabilizing his medical condition. Measurements taken. Focused on trial of power tilt and recline to ensure no shearing. Education around the importance ofhaving chair in tilt so that the hips remain captured by seat and back to prevent hips from sliding forward which can lead to shearing. Trial of power standing completed with tilt and recline features.Adjustments to prevent patient from feeling like he is leaning forward. Increased recline in standing to open up back angle to prevent the feeling of leaning forward used both chest strap and bar. Caretaken to ensure that shearing did not occur in this trial. Also closely monitored lower extremity alignment and patient's comfort level as well as tone when in standing. Monitored skin response to ensur e no excessive areas of redness. CLINICAL CRITERIA / ALGORITHM SUMMARY: 1. Is [...] of his colostomy and suprapubic catheter management. 2. Are there cognitive or sensory deficits [...] a cane or walker? No. Non ambulatory 5. Does the user's environment support the [...] good. Patient reported feeling comfortable in the wheelchair in standing. Wasable to drive the chair in standing. Did have some redness of the anterior shins after standing fromthe logan / knee guides but this dissipated within 15 minutes of removing the pressure. ASSESSMENT: The following power wheelchair is recommended for Jeff Chowdhury for increased independencewith mobility and increased independence with MRADLs like transferring, pressure relief, management of his bowel and bladder, management of his osteoporosis (fracture prevention). He is a time signal wirer wheelchair user and is not ambulatory. He has had a history of pressure sores and has severe osteoporosis. He also recently had a colostomy placed and a suprapubic catheter placed. -Permobile with power stand, power recline, power tilt, power elevation -thigh guides to reduce excessive hip abduction -new varolite cushion 18x20 inches. SHORT TERM GOALS: (within 1 session) 1. Pt will attend a wheelchair evaluation and appropriate equipment will be discussed for the patient to increase her/his independence with mobility and MRADLs including but not limited to cooking, dressing and grooming-MET 2. The evaluation will be completed by this therapist and sent to . A face to face visit between Dr. Randle and the patient has occurred but was 6 weeks ago. He may required another Face toface- MET RETIREMENT GOALS (to be met within 3 months) 1. A home assessment/trial will be completed by vendor to ensure safe maneuverability and appropriate device will be determined at that time. 2. A letter of medical necessity will be completed by this therapist and sent to or his primary care provider. This letter will then be sent to insurance for pre authorization. 3. Upon approval from insurance, pt will receive the recommended mobility device and utilize this device in her/his home for increased independence and safety with MRADLs. PLAN: Home trial to be completed. Pending home evaluation, therapist to complete appropriate paper work to submit to insurance company for pre authorization. No further skilled PT necessary at this time and will discontinue skilled PT services at this time due to maximal benefit and completion of the clinic assessment and hold, with plan to discharge upon approval and obtaining the mobility device. Reassessment of mobility equipment or change in status of the individual may be required in the future but will occur prior to 11/10/14. Total treatment time: 60 minutes: 1 unit evaluation and 2 unit(s) of wheelchair management. I, the undersigned, certify that the above prescribed, durable, medical equipment, is medically necessary as part of my treatment for Jeff Cullen. In my opinion, the equipment prescribed is [...] Sincerely, Trudi Raymundo, PT, License # [id number] 05/04/14 Please sign below and fax this report, with your signature, to our clinic at [phone]. Your signature is required to continue treatment of the above patient per Medicare regulations. I certify the need for the above services furnished under this treatment plan while under my care. _ May Randle MD 05/04/14 documented in this encounter Plan of Treatment Not on filedocumented as of this encounter Visit Diagnoses Diagnosis Osteoporosis (HRC) - Primary Osteoporosis, unspecified Paraplegia ([facility]C) Paraplegia documented in this encounter
--- OUTSIDE RECORDS SUMMARY | 2022-06-20 02:27 | XMS_ITS | Encounter Summary ---
:1945 [facility] Address [address], [place] [address] Care Team Providers Name Role Phone Unassigned, Provider Primary Care Provider Unavailable Encounter Details Date Type Department Care Team Description 11/16/2013 Therapy External to Physical Therapy, Provider Social History Tobacco Use Types Packs/Day Years Used Date Smoking Tobacco: Never Smokeless Tobacco: Never Alcohol Use Standard Drinks/Week Comments No 0 (1 standard drink = 0.6 oz pure alcoho l) Sex Assigned at Date Recorded Male 08/06/2021 5:59 PM CDT documented as of this encounter Progress Notes Physical Therapy, Provider - 11/16/2013 12:00 AM CST documented in this encounter Plan of Treatment Not on filedocumented as of this encounter Visit Diagnoses Not on filedocumented in this encounter Care Teams Manager University Relationship Specialty Start Date End Date Unassigned, Provider PCP - General Unknown Physician 09/04/13 12/15/[address] [place] [id number] documented as of this encounter
--- OUTSIDE RECORDS SUMMARY | 2022-06-20 02:27 | XMS_ITS | Encounter Summary ---
:1945 Author Organization [facility] Address [address], [place] [address] Care Team Providers Name Role Phone Unavailable Primary Care Provider Unavailable Reason for Visit Reason Onset Date Comments Orders Needed 04/20/2014 Encounter Details Date Type Department Care Team Description 04/20/2014 Telephone Specialty Center [address] Selene Johnson, RN Orders Needed NeuroSurgery [address] [place] [address] [place] [address] [phone] Social History Tobacco Use Types Packs/Day Years Used Date Smoking Tobacco: Never Smokeless Tobacco: Never Alcohol Use Standard Drinks/Week Comments No 0 (1 standard drink = 0.6 oz pure alcoho l) Sex Assigned at Date Recorded Male 08/06/2021 5:59 PM CDT documented as of this encounter Nursing Notes Selene Johnson, RN - 04/20/2014 2:32 PM CDT Patient had minimally relief from connie injection facet blocks per plan will now try the blocks at L -5-s-1-order written and faxed to [facility]. Patient aware. And will call with follow up call after injection completed. Selene Johnson RN 04/20/2014, 2:36 PM documented in this encounter Plan of Treatment Not on filedocumented as of this encounter Visit Diagnoses Diagnosis Back pain - Primary Backache, unspecified documented in this encounter
--- OUTSIDE RECORDS SUMMARY | 2022-06-20 02:28 | XMS_ITS | Encounter Summary ---
:1945 Author Organization [facility] Address [address] [place] [address] Care Team Providers Name Role Phone Provider, Obtain Primary Care Provider Unavailable Encounter Details Date Type Department Care Team Description 04/14/2013 Orders Only External to No Primary/Referring, Phy Social History Tobacco Use Types Packs/Day Years Used Date Smoking Tobacco: Never Smokeless Tobacco: Never Alcohol Use Standard Drinks/Week Comments No 0 (1 standard drink = 0.6 oz pure alcoho l) Sex Assigned at Date Recorded Male 08/06/2021 5:59 PM CDT documented as of this encounter Procedure Notes No Primary/Referring, Phy - 04/14/2013 12:00 AM CDTAssociated Order(s): SCANNED LAB documented in this encounter Plan of Treatment Not on filedocumented as of this encounter Procedures Procedure Name Priority Date/Time Associated Diagnosis Comme nts SCANNED LAB 04/14/2013 12:00 AM Results for this CDT procedure are i n the results section . documented in this encounter Results SCANNED LAB (04/14/2013 12:00 AM CDT) Specimen (Source) Anatomical Location Collection Method / Collectio n Time Received Time / Laterality Volume 04/14/2013 Narrative This result has an attachment that is no t available. Transcriptions No Primary/Referring, Phy - 04/14/2013 1 2:00 AM CDT Phy No Primary/Referring LAB_1 documented in this encounter Visit Diagnoses Not on filedocumented in this encounter Care Teams Rehabilitation Center Manager Relationship Specialty Start Date End Date Provider, Obtain PCP - General 04/15/13 09/03/13 documented as of this encounter
--- OUTSIDE RECORDS SUMMARY | 2022-06-20 02:28 | XMS_ITS | Encounter Summary ---
:1945 Author Organization [facility] Address [address] [address] Care Team Providers Name Role Phone Provider, Obtain Primary Care Provider Unavailable Reason for Visit Reason Onset Date Comments QUESTIONS, GENERAL 08/18/2013 Encounter Details Date Type Department Care Team Description 08/18/2013 Telephone Specialty Center [address] Cohen , QUESTIONS, GENERAL Interventional Pain DO Management [address] [place] [phone] Social History Tobacco Use Types Packs/Day Years Used Date Smoking Tobacco: Never Smokeless Tobacco: Never Alcohol Use Standard Drinks/Week Comments No 0 (1 standard drink = 0.6 oz pure alcoho l) Sex Assigned at Date Recorded Male 08/06/2021 5:59 PM CDT documented as of this encounter Nursing Notes Romelia Chamberlain - 08/18/2013 1:42 PM CDT Spoke with pt and he is using a different pharmacy, using [facility]. Prescription for baclophen sent to pharmacy requested and [facility] order [facility]. Danya Ta - 08/18/2013 10:54 AM CDT Patient's called requesting to speak with Dr. Cohen's nurse. She said it is regarding his baclofen and that they are having problems with [facility]. Please call back. Thank you! documented in this encounter Plan of Treatment Not on filedocumented as of this encounter Visit Diagnoses Diagnosis Back pain - Primary Backache, unspecified documented in this encounter Care Teams Short Order Fry Cook Relationship Specialty Start Date End Date Provider, Obtain PCP - General 04/15/13 09/03/13 documented as of this encounter
--- OUTSIDE RECORDS SUMMARY | 2022-06-20 02:28 | XMS_ITS | Encounter Summary ---
:1945 [facility] Address [address] [address] Care Team Providers Name Role Phone Franklin Squires MD Primary Care Provider Encounter Details Date Type Department Care Team Description 11/13/2012 Correspondence [facility] Radiology, MRI SAFETY SHEET [address] [facility] Provider [place] [address] Social History Tobacco Use Types Packs/Day Years Used Date Smoking Tobacco: Never Smokeless Tobacco: Never Alcohol Use Standard Drinks/Week Comments No 0 (1 standard drink = 0.6 oz pure alcoho l) Sex Assigned at Date Recorded Male 08/06/2021 5:59 PM CDT documented as of this encounter Progress Notes [facility] RADIOLOGY, PROVIDER - 11/13/2012 12:00 AM CST RY WORKER documented in this encounter Plan of Treatment Not on filedocumented as of this encounter Visit Diagnoses Not on filedocumented in this encounter Care Teams Senior Java Programmer Analyst Relationship Specialty Start Date End Date Franklin Squires MD PCP - General Family Practice 03/08/[address] [place] [address] [place] [address] documented as of this encounter
--- OUTSIDE RECORDS SUMMARY | 2022-06-20 02:28 | XMS_ITS | Encounter Summary ---
:1945 Author [facility] Address [address], [place] [address] Care Team Providers Name Role Phone Garry Neff MD Primary Care Provider Encounter Details Date Type Department Care Team Description 01/13/2013 Notes/Orders Specialty Center [address] Cohen , Interventional Pain DO Management [address] [place] [address] [place] [address] [phone] Social History Tobacco Use Types Packs/Day Years Used Date Smoking Tobacco: Never Smokeless Tobacco: Never Alcohol Use Standard Drinks/Week Comments No 0 (1 standard drink = 0.6 oz pure alcoho l) Sex Assigned at Date Recorded Male 08/06/2021 5:59 PM CDT documented as of this encounter Nursing Notes Mi Osborne RN - 01/13/2013 11:28 AM CST Patient's calling to inform clinic that Lyrica rx was not faxed 01/08. [place] informed patient that rx would be re-faxed today. Community Service Manager spoke with [facility] staff who states that correct fax number is [phone] and that if needed can call [phone] for verbal rx order. Rx faxed to new fax number. Mi Osborne RN 01/13/2013, 11:46 AM EAD TRIMMER AND WRAPPER documented in this encounter Plan of Treatment Not on filedocumented as of this encounter Visit Diagnoses Not on filedocumented in this encounter Care Teams It Lead Relationship Specialty Start Date End Date Garry Neff MD PCP - General Neurosurgery 04/24/12 04/14/13 [address] [place] [address] documented as of this encounter
--- OUTSIDE RECORDS SUMMARY | 2022-06-20 02:28 | XMS_ITS | Encounter Summary ---
:1945 [facility] Address [address] [address] Care Team Providers Name Role Phone Franklin Squires MD Primary Care Provider Encounter Details Date Type Department Care Team Description 09/17/2013 Correspondence External to External, Provid er EMPOWERMENT [place] [address] Social History Tobacco Use Types Packs/Day Years Used Date Smoking Tobacco: Never Smokeless Tobacco: Never Alcohol Use Standard Drinks/Week Comments No 0 (1 standard drink = 0.6 oz pure alcoho l) Sex Assigned at Date Recorded Male 08/06/2021 5:59 PM CDT documented as of this encounter Progress Notes External, Provider - 09/17/2013 12:00 AM CST ORT TRAFFIC CONTROLLER documented in this encounter Plan of Treatment Not on filedocumented as of this encounter Visit Diagnoses Not on filedocumented in this encounter Care Teams Java Programming Professor Relationship Specialty Start Date End Date Franklin Squires MD PCP - General Family Practice 03/08/[address] [place] [address] [place] [address] documented as of this encounter
--- OUTSIDE RECORDS SUMMARY | 2022-06-20 02:28 | XMS_ITS | Encounter Summary ---
:1945 Author [facility] Address [address] [address] Care Team Providers Name Role Phone Provider, Obtain Primary Care Provider Unavailable Reason for Visit Reason Onset Date Comments Refill 07/08/2013 lyrica Encounter Details Date Type Department Care Team Description 07/08/2013 Refill Specialty Center [address] Zel[address] Cohen, DO Refill (lyrica) Interventional Pain Management [address] [place] [address] [place] [address] [phone] Social History Tobacco Use Types Packs/Day Years Used Date Smoking Tobacco: Never Smokeless Tobacco: Never Alcohol Use Standard Drinks/Week Comments No 0 (1 standard drink = 0.6 oz pure alcoho l) Sex Assigned at Date Recorded Male 08/06/2021 5:59 PM CDT documented as of this encounter Nursing Notes David Medeiros RN - 07/08/2013 1:31 PM CDT Too early for refill. Current Rx should last through 08/17/13. David Medeiros RN 07/08/2013, 1:33 PM Yazmin Montoya - 07/08/2013 11:57 AM CDT Refill request: Medication: pregabalin (LYRICA) 50 MG capsule Patient Sig: Take 2 Caps by mouth three times a day. Dispense: 540 Date of last Refill: 01/15/2013 pharmacy requesting 90 day supply documented in this encounter Plan of Treatment Not on filedocumented as of this encounter Visit Diagnoses Diagnosis Back pain - Primary Backache, unspecified documented in this encounter Care Teams Production Tester Relationship Specialty Start Date End Date Provider, Obtain PCP - General 04/15/13 09/03/13 documented as of this encounter
--- OUTSIDE RECORDS SUMMARY | 2022-06-20 02:28 | XMS_ITS | Encounter Summary ---
:1945 [facility] Address [address], [place] [address] Care Team Providers Name Role Phone Franklin Squires MD Primary Care Provider Encounter Details Date Type Department Care Team Description 04/20/2013 Correspondence [facility] Radiology, MRI SAFETY SHEET [address] [facility] [place] [address] Social History Tobacco Use Types Packs/Day Years Used Date Smoking Tobacco: Never Smokeless Tobacco: Never Alcohol Use Standard Drinks/Week Comments No 0 (1 standard drink = 0.6 oz pure alcoho l) Sex Assigned at Date Recorded Male 08/06/2021 5:59 PM CDT documented as of this encounter Progress Notes RADIOLOGY, PROVIDER - 04/20/2013 12:00 AM CDT documented in this encounter Plan of Treatment Not on filedocumented as of this encounter Visit Diagnoses Not on filedocumented in this encounter Care Teams Dry Cell Battery Assembler Relationship Specialty Start Date End Date Franklin Squires MD PCP - General Family Practice 03/08/16 [address] [facility] [place] [address] documented as of this encounter
--- OUTSIDE RECORDS SUMMARY | 2022-06-20 02:28 | XMS_ITS | Encounter Summary ---
:1945 Author Organization [facility] Address [address] [address] Care Team Providers Name Role Phone Garry Neff MD Primary Care Provider Reason for Visit Reason Onset Date Comments Medication Request 02/13/2013 Encounter Details Date Type Department Care Team Description 02/13/2013 Telephone [facility] [address] Zel[address] Cohen , Medication Request Interventional Pain DO Management [address] [place] [address] [phone] Social History Tobacco Use Types Packs/Day Years Used Date Smoking Tobacco: Never Smokeless Tobacco: Never Alcohol Use Standard Drinks/Week Comments No 0 (1 standard drink = 0.6 oz pure alcoho l) Sex Assigned at Date Recorded Male 08/06/2021 5:59 PM CDT documented as of this encounter Nursing Notes Cristy Carson RN - 02/13/2013 9:49 AM CDT Ordered May 2012, all refills have been used, last filled 08/26/12 Saw pt 3/7 Next appt 04/14 documented in this encounter Plan of Treatment Not on filedocumented as of this encounter Visit Diagnoses Diagnosis Back pain - Primary Backache, unspecified documented in this encounter Care Teams Gasket Maker Relationship Specialty Start Date End Date Garry Neff MD PCP - General Neurosurgery 04/24/12 04/14/13 [address] [place] [address] documented as of this encounter
--- OUTSIDE RECORDS SUMMARY | 2022-06-20 02:28 | XMS_ITS | Encounter Summary ---
:1945 Author Organization [facility] Address [address], [place] [address] Care Team Providers Name Role Phone Garry Neff MD Primary Care Provider Reason for Visit Reason Onset Date Comments RESULTS, TEST 11/26/2012 Encounter Details Date Type Department Care Team Description 11/26/2012 Telephone [facility] 401 Garry Neff MD RESULTS, TEST NeuroSurgery [address] [place] [address] [place] [address] [phone] Social History Tobacco Use Types Packs/Day Years Used Date Smoking Tobacco: Never Smokeless Tobacco: Never Alcohol Use Standard Drinks/Week Comments No 0 (1 standard drink = 0.6 oz pure alcoho l) Sex Assigned at Date Recorded Male 08/06/2021 5:59 PM CDT documented as of this encounter Nursing Notes Selene Johnson RN - 11/26/2012 10:19 AM CST Care team reviewed thoracic MRI-which shows no tumor, will have a repeat of thoracic MRI in 6 months. Call placed to patient and informed him of the above. Order placed this contract technical writer did explain that he can call 3 months to schedule this appointment. Patient will call with any further questions or concerns.Selene Johnson RN 11/26/2012, 10:22 AM NG COILING MACHINE SETTER Sweetie Sterling - 11/26/2012 9:54 AM CST Pt is requesting a call with MRI results from 1-3. 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
--- OUTSIDE RECORDS SUMMARY | 2022-06-20 02:28 | XMS_ITS | Encounter Summary ---
:1945 Author Organization [facility] Address [address] [address] Care Team Providers Name Role Phone Garry Neff MD Primary Care Provider Reason for Visit Reason Comments Refill Cymbolta Encounter Details Date Type Department Care Team Description 01/19/2013 Refill Specialty Center 401 Zelal[address] Cohen , Refill (Cymbolta) Interventional Pain DO Management [address] [place] [address] [place] [address] [phone] Social History Tobacco Use Types Packs/Day Years Used Date Smoking Tobacco: Never Smokeless Tobacco: Never Alcohol Use Standard Drinks/Week Comments No 0 (1 standard drink = 0.6 oz pure alcoho l) Sex Assigned at Date Recorded Male 08/06/2021 5:59 PM CDT documented as of this encounter Nursing Notes Mi Osborne RN - 01/19/2013 4:[address] Cohen refilled Cymbalta 01/15 for 1 month supply 6 refills to Mail Order pharmacy. Patients states that he has 2 days left of Cymbalta supply and has not received rx in the mail. He reports no dosechange and no SEs. He is requesting 1 month supply to [facility] while he is waiting for mail order prescription. Assured patient that rxs would be sent to both pharmacies. Patient appreciative of call. 1 month supply sent to [facility] and 3 month supply with 1 refill sent to mail order. Mi Osborne RN 01/19/2013, 4:49 PM George Grande - 01/19/2013 4:09 PM CDT Pt's , Heather is calling to check on the status of the refill for Cymbolta. Heather says the pthas two days worth of the medication left. Pt's is wondering if he can get an express script tohold the pt over until the medication is refilled. Please advise MAGDALENE KANG documented in this encounter Plan of Treatment Not on filedocumented as of this encounter Visit Diagnoses Diagnosis Anal pain - Primary Anal or rectal pain documented in this encounter Care Teams Senior Asp Net Developer Relationship Specialty Start Date End Date Garry Neff MD PCP - General Neurosurgery 04/24/12 04/14/13 [place] [address] documented as of this encounter
--- OUTSIDE RECORDS SUMMARY | 2022-06-20 02:28 | XMS_ITS | Encounter Summary ---
:1945 Author Organization [email or web address] Address [address], [place] [address] Care Team Providers Name Role Phone Provider, Obtain Primary Care Provider Unavailable Reason for Visit Reason Onset Date Comments Refill 08/17/2013 baclofen Encounter Details Date Type Department Care Team Description 08/17/2013 Refill Special[facility] [address] Cohen , Refill (baclofen) Interventional Pain DO Management [address] [place] [address] [place] [address] [phone] Social History Tobacco Use Types Packs/Day Years Used Date Smoking Tobacco: Never Smokeless Tobacco: Never Alcohol Use Standard Drinks/Week Comments No 0 (1 standard drink = 0.6 oz pure alcoho l) Sex Assigned at Date Recorded Male 08/06/2021 5:59 PM CDT documented as of this encounter Nursing Notes Romelia Chamberlain - 08/17/2013 3:00 PM CDT refilled Zelalem Cohen MD - 08/17/2013 2:17 PM CDT Ok for baclofen, one month, [address] Benito Coehn Romelia Chamberlain - 08/17/2013 1:52 PM CDT Last Rx'd:01/15/2013 baclofen (AKA LIORESAL) 20 MG tablet QTY: 180 Tab Refill;11 Sig : Take 2 Tabs by mouth three times aday. Yazmin Montoya - 08/17/2013 1:16 PM CDT Refill request: Medication: baclofen (AKA LIORESAL) 20 MG tablet Patient Sig: Take 2 Tabs by mouth three times a day. Dispense: 180 Date of last Refill: 01/15/2013 documented in this encounter Plan of Treatment Not on filedocumented as of this encounter Visit Diagnoses Diagnosis Back pain - Primary Backache, unspecified documented in this encounter Care Teams Husker Operator Relationship Specialty Start Date End Date Provider, Obtain PCP - General 04/15/13 09/03/13 documented as of this encounter
--- OUTSIDE RECORDS SUMMARY | 2022-06-20 02:28 | XMS_ITS | Encounter Summary ---
:1945 Author Organization [facility] Address [address] [address] Care Team Providers Name Role Phone Unassigned, Provider Primary Care Provider Unavailable Reason for Visit Reason Comments Refill Encounter Details Date Type Department Care Team Description 09/23/2013 Refill Specialty Center [address] Zelal[address] Cohen, DO Refill Interventional Pain Management [address] [place] [address] [place] [address] [phone] Social History Tobacco Use Types Packs/Day Years Used Date Smoking Tobacco: Never Smokeless Tobacco: Never Alcohol Use Standard Drinks/Week Comments No 0 (1 standard drink = 0.6 oz pure alcoho l) Sex Assigned at Date Recorded Male 08/06/2021 5:59 PM CDT documented as of this encounter Nursing Notes Romelia Chamberlain - 09/24/2013 9:40 AM CST Pt informed. Romelia Garcia - 09/23/2013 10:05 AM CST Refilled 3 months due to mail order pharmacy, call to pt to advise follow up prior to next refill. Romelia Garcia - 09/23/2013 10:03 AM CST Last rx'd:04/20/2013 duloxetine (AKA CYMBALTA) 20 MG capsule Qty: 360 Cap Refills: 1 Sig : Take 4 Caps by mouth daily. Pain clinic follow up visit: Subjective: back pain is better. Anal pain is somewhat better. On polypharmacy. No SE. F/u with Dr. Neff today. Objective: Filed Vitals: 04/20/13 1340 BP: 93/57 Pulse: 101 Gen: nad, a/o Mood/affect improved In powered w/c present Assessment: 1. SCI, tumor removed 2. Back pain 3. Paraplegia 4. Rectal pain Plan of Care: 1. Continue norflex no change 2. Continue tizanidine no change 3. D/c morphine suppository 4. Taper off baclofen, monitor for spasticity 5. No change with cymbalta 6. No change with lyrica 7. F/u in 6-8 months Zelalem Cohen DO 04/20/2013, 1:53 PM STRING KNOTTER documented in this encounter Plan of Treatment Not on filedocumented as of this encounter Visit Diagnoses Not on filedocumented in this encounter Care Teams Band Sawyer Relationship Specialty Start Date End Date Unassigned, Provider PCP - General Unknown Physician 09/04/13 12/15/[address] [place] [id number] documented as of this encounter
--- OUTSIDE RECORDS SUMMARY | 2022-06-20 02:28 | XMS_ITS | Encounter Summary ---
:1945 Author Organization [facility] Address [address] [address] Care Team Providers Name Role Phone Garry Neff MD Primary Care Provider Reason for Visit Reason Onset Date Comments Medication Not Working 02/18/2013 Encounter Details Date Type Department Care Team Description 02/18/2013 Telephone Specialty Center 401 Zelalem Cohen edication Not Working Interventional Pain L, DO Management [address] [place] [phone] Social History Tobacco Use Types Packs/Day Years Used Date Smoking Tobacco: Never Smokeless Tobacco: Never Alcohol Use Standard Drinks/Week Comments No 0 (1 standard drink = 0.6 oz pure alcoho l) Sex Assigned at Date Recorded Male 08/06/2021 5:59 PM CDT documented as of this encounter Nursing Notes Mi Osborne RN - 02/20/2013 8:[address] Cohen recommends for patient to taper off of morphine by 1 suppository every 2 days and to taper off of tizanidine by 1 tab every 2 days. Patient is then to call clinic with an update. Informed patient. He is in agreement with plan and able to repeat the instructions. Mi Osborne RN 02/20/2013, 9:11 AM Mi Osborne RN - 02/19/2013 2:19 PM CDT Patient reports that his back and rectal pain is essentially the same as when he saw Dr. Cohen 01/15. He reports taking all pain medications as prescribed without SEs but without much pain relief. He states that overall his rectal pain is worse than the back pain. Assured patient that Dr. Cohen would see his message and respond. Any new recommendations for patient? Mi Osborne RN 02/19/2013, 2:22 PM Giselle Banuelos - 02/19/2013 2:16 PM CDT Pt is returning call. KMS Mi Osborne RN - 02/19/2013 1:[address] Cohen states that Morphine suppositories should help rectal pain only, not back pain. Left message to call back. Mi Osborne RN 02/19/2013, 1:51 PM Stella Michelle - 02/18/2013 3:42 PM CDT Pt reports that the suppositories are not working. Please call him at [phone] documented in this encounter Plan of Treatment Not on filedocumented as of this encounter Visit Diagnoses Not on filedocumented in this encounter Care Teams Redipper Relationship Specialty Start Date End Date Garry Neff MD PCP - General Neurosurgery 04/24/12 04/14/13 [facility] [place] [address] documented as of this encounter
--- OUTSIDE RECORDS SUMMARY | 2022-06-20 02:28 | XMS_ITS | Encounter Summary ---
:1945 Author Organization [employer] Address [address], [place] [address] Care Team Providers Name Role Phone Garry Neff MD Primary Care Provider Reason for Visit Reason Onset Date Comments Refill 10/30/2012 Encounter Details Date Type Department Care Team Description 10/30/2012 Refill Specialty Center [address] Zel[address] Cohen, DO Refill Interventional Pain Management [address] [place] [address] [place] [address] [phone] Social History Tobacco Use Types Packs/Day Years Used Date Smoking Tobacco: Never Smokeless Tobacco: Never Alcohol Use Standard Drinks/Week Comments No 0 (1 standard drink = 0.6 oz pure alcoho l) Sex Assigned at Date Recorded Male 08/06/2021 5:59 PM CDT documented as of this encounter Nursing Notes Mi Osborne RN - 10/31/2012 11:22 AM CST Patient ok for tizanidine refills per Dr. Cohen. He recommends that patient f/u in Spring or sooner if questions/issues. Informed patient. He is in agreement with plan. Will call back to schedule revisit. Rx sent to preferred pharmacy. Mi Osborne RN 10/31/2012, 11:24 AM ITALITY AIDE Stella Michelle - 10/31/2012 10:40 AM CST Pt called to say he needs this med today. ITALITY AIDE Mi Osborne, RN - 10/30/2012 9:10 AM CST Refill request for tizanidine received. Last rx was 07/29/12 and patient was last seen at that time. He cancelled 10/21/12 appt. Please advise regarding refill request. Mi Osborne RN 10/30/2012, 9:11 AM ITALITY AIDE documented in this encounter Plan of Treatment Not on filedocumented as of this encounter Visit Diagnoses Diagnosis Back pain - Primary Backache, unspecified documented in this encounter Care Teams Third Shift Lieutenant Relationship Specialty Start Date End Date Garry Neff MD PCP - General Neurosurgery 04/24/12 04/14/[address] [place], [place] [address] [address] documented as of this encounter
--- OUTSIDE RECORDS SUMMARY | 2022-06-20 02:28 | XMS_ITS | Encounter Summary ---
:1945 Author Organization [employer] Address [address] [place] [address] Care Team Providers Name Role Phone Provider, Obtain Primary Care Provider Unavailable Reason for Visit Reason Comments RECTAL PAIN Encounter Details Date Type Department Care Team Description 04/15/2013 Office Visit Specialty Center Benito Browne Proc talgia fugax [facility] (Primary Dx) [address] [place] [address] [place], [place] [phone] Social History Tobacco Use Types Packs/Day Years Used Date Smoking Tobacco: Never Smokeless Tobacco: Never Alcohol Use Standard Drinks/Week Comments No 0 (1 standard drink = 0.6 oz pure alcoho l) Sex Assigned at Date Recorded Male 08/06/2021 5:59 PM CDT documented as of this encounter Last Filed Vital Signs Vital Sign Reading Time Taken Comments Blood Pressure 157/95 04/15/2013 11:06 AM CDT Pulse 82 04/15/2013 11:06 AM CDT Temperature 36.6 ??C (97.8 ??F) 04/15/2013 11:06 AM CDT Respiratory Rate - - Oxygen Saturation - - Inhaled Oxygen Concentration - - Weight - - Height 175.3 cm (5' 9) 04/15/2013 11:06 AM CDT Body Mass Index - - documented in this encounter Patient Instructions Patient InstructionsRonda Sherman LPN - 04/15/2013 11:53 AM CDT Follow up as needed. documented in this encounter Progress Notes Benito Browne MD - 04/15/2013 11:55 AM CDT Colorectal Staff Date of Service: 04/15/2013 I've seen and examined the patient, as well as reviewed pertinent lab and imaging results. I agree with Dr. Harrington's assessment and plan with the following additions and corrections: This is a very nice, 67-year-old gentleman, who has had some degree of paraplegia since the year 1999. 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 He became fully paraplegic after that surgery. Shortly after that surgery, he developed a dull, aching, sometimes intensifying to a burning anal pain. He also had incontinence of feces He saw colorectal surgeon, Dr. Oswald Marte, for these problems. A biopsy of the skin was taken to rule out malignancy, puritis ani was treated. A laparoscopic colostomy was created to help with fecal incontinence. This did not help with the pain. At one point, a fissure was seen, and he was started on topical diltiazem ointment. He has been doing this for 2 months several times a day however, This has not helped. He did not pass blood per rectum, rarely he passes a mucus. Nothing he can think of makes the pain better or worse. He does have some spasming of his back, and some spasming of the muscles of his abdomen. He does notice that the anal pain is worse when the spasming is taking place. Physical exam: Lying on the examination table, in good spirits. No apparent distress, no respiratorydistress. Abdomen soft, nontender, nondistended. Obese. Colostomy left abdomen, opaque bag. No parastomal hernia Rectal exam: Lying on his side, we gently spread his buttocks with an certified medical assistant in the room. His anus is slightly gaping, there is some external hemorrhoid disease, but not excessive. No fissure, no fistula, no abscess, no masses. The skin is in good condition, no rashes Digital rectal exam: the anus begins quite loose, but once the gloved finger enters, spasm of the anus, and I believe the puborectalis ensues. This elicits his pain exactly. No masses. 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 This is a difficult condition to treat, and frequently in many treatments have to be experimented with before one was found that is useful. Usually we began with warm water baths, 3 times a day, for at least a couple of weeks. The goal is to relax the muscles in this area Topical diltiazem is a treatment currently employed, so is oral diltiazem. Oral clonidine has been reported to work sometimes, so has not held albuterol. Some patient event benefits from pudendal nerve blocks. I personally have had no success with steroid injections. Some people have reported success with Botox injections. There are some antidepressants but also had indications for chronic pain, and these may be useful. Muscle relaxants may help. I have encouraged him to talk with his pain Dr., and his primary care Dr., an experiment with multiple of these treatments. It is a long trip for him to see me, but I am available as needed. Benito Browne MD 04/15/2013, 11:55 AM Please copy this note to Dr. Oswald Marte, as well as the patient's pain DrUgo, and primary care Dr. Blood pressure 157/95, pulse 82, temperature 97.8 ??F (36.6 ??C), temperature source Oral, height 5'9 (1.753 m). Lab Results Component Value Date/Time SODIUM 141 03/14/2011 7:07 AM SODIUM 136 05/30/2010 12:28 PM SODIUM 132* 05/22/2010 12:05 PM K 4.1 03/16/2011 6:56 AM K 3.9 03/14/2011 7:07 AM K 3.4* 05/30/2010 12:28 PM CHLORIDE 104 03/14/2011 7:07 AM CHLORIDE 99 05/30/2010 12:28 PM CHLORIDE 93* 05/22/2010 12:05 PM CO2 29 03/14/2011 7:07 AM CO2 31* 05/30/2010 12:28 PM CO2 27 05/22/2010 12:05 PM BUN 16 03/14/2011 7:07 AM BUN 19 05/30/2010 12:28 PM BUN 25* 05/22/2010 12:05 PM CREATININE 0.88 08/07/2011 11:52 AM CREATININE 1.05 03/14/2011 7:07 AM CREATININE 1.05 03/06/2011 11:13 AM Lab Results Component Value Date/Time HGB 9.3* 03/15/2011 6:43 AM HGB 9.3* 03/14/2011 7:07 AM HGB 12.7* 03/13/2011 12:40 PM WBC 8.2 03/15/2011 6:43 AM WBC 6.1 03/14/2011 7:07 AM WBC 6.3 03/13/2011 12:40 PM Kj Harrington MD - 04/15/2013 11:54 AM CDT Colon & Rectal Surgery Consultation Date of service: 04/15/2013 HPI: 67 year old male with 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 He presents forevaluation of chronic anal pain for which he had been previously seen by Dr. Stokes. He is s/p sigmoid colostomy back in September for chronic fecal incontinence and to some degree this anal pain. He first noted it ~ 2 years ago, about a year after debulking of his spinal cord tumor. He has since hada hemorrhoidectomy but this has not changed his pain. He has been treated for some degree of pruritis ani but the pain persists. Most recently, a small anterior anal fissure was felt to be present and he was prescribed diltiazem cream but does not think this helps. In general, the pain is a sharp painthat is constant and feels like a scratch or tear. There is occasionally a burning component. He denies itching. It is not worse with passage of mucus (or BMs prior to his colostomy). He does think that the pain is less severe when the area is moist, hence he continues to use creams previously prescribed for the moisture component. He has never had a neel-rectal abscess or fistula to his knowledge. He denies fevers or chills. His appetite is good. He denies abdominal pain. He is overall happy with his colostomy. Colonoscopy status: 2010 by general surgeon in [place]. Reportedly normal. ROS: CONSTITUTIONAL: Negative. EYES: no vision changes. ENT: no abnormally frequent URIs, no decrease in hearing RESPIRATORY: no shortness of breath, no cough CARDIOVASCULAR: no palpitations, no chest pain GASTROINTESTINAL: normal appetite, no dysphagia, no nausea, no abdominal pain, no melena, no hematochezia GENITOURINARY: Neurogenic bladder, chronic catheterization MUSCULOSKELETAL: Chronic back pain and spasm SKIN: no new rashes NEUROLOGIC: Paraplegic as above, chronic back pain and spasm HEMATOLOGIC/LYMPHATIC/IMMUNOLOGIC: H/o DVT, anticoagulated, has IVC filter ENDOCRINE: no thyroid disorder, no diabetes PMHx: Paraplegia, Spinal cord tumor (ependymoma), Chronic back pain, Spasticity, H/o meningitis, H/o DVT (anticoagulated + IVC filter in place) HTN, hyperlipidemia Past Surgical History: Sigmoid colostomy this past September 2012 cyberknife radiation to spinal tumor Tumor debulking Hemorrhoidectomy Multiple orthopedic procedures for fracture Meds: Outpatient Prescriptions Prior to Visit Medication Sig Dispense Refill ??? alendronate (AKA FOSAMAX) 70 MG tablet Take 70 mg by mouth once every week. ??? atorvastatin (LIPITOR) 40 MG tablet Take 1 Tab by mouth daily. ??? baclofen (AKA LIORESAL) 20 MG tablet Take 2 Tabs by mouth three times a day. 180 Tab 11 ??? Calcium-Vitamin D (CALTRATE 600 PLUS-VIT D OR) Take 2 Caps by mouth daily. ??? cholecalciferol (AKA VITAMIN D3) 1000 UNIT tablet Take 2 Tabs by mouth daily. 60 Tab 11 ??? compounded diltiazem 2% in lidocaine 2% GEL gel Apply topically. Diltiazem powder 1.2 g in 58.8 g lidoccaine 2% jelly. ??? DIAZEpam (AKA VALIUM) 5 MG tablet Take 1 Tab by mouth . 6 hours prior to MRI and 1 hour prior toMRI 2 Tab 0 ??? duloxetine (AKA CYMBALTA) 20 MG capsule Take 4 Caps by mouth daily. 120 Cap 0 ??? Generic Medication (COMPOUNDED CREAM) Ketamine 10%, boclofen 2%, gabapentin 6%, verapamil 6%. Apply to low back TID prn 250 g 6 ??? LORazepam (AKA ATIVAN) 0.5 MG tablet Take 2 Tabs by mouth three times a day. ??? MORphine 5 MG suppository Insert 1 Suppository rectally every 6 hours as needed for Pain. 120 Suppository 0 ??? orphenadrine 100 MG tablet Take 1 Tab by mouth two times a day as needed for Muscle Spasms or Pain. 60 Tab 1 ??? polyethylene glycol (AKA MIRALAX) packet Take 17 g by mouth daily. 10 Each 2 ??? pregabalin (LYRICA) 50 MG capsule Take 2 Caps by mouth three times a day. 180 Cap 6 ??? TESTOSTERONE TD Patch ??? tiZANidine (AKA ZANAFLEX) 4 MG capsule Take 1 Cap by mouth three times a day as needed for Muscle Spasms. 90 Cap 6 ??? TRIMETHOPRIM OR Take 100 mg by mouth daily. ??? warfarin (COUMADIN) 5 MG tablet Take 5 mg by mouth daily. 7.5 mg Saturday- , 10 mg Saturday Based on INR ??? Calcium Carbonate (CALTRATE 600 OR) 2 tabs daily ??? duloxetine (AKA CYMBALTA) 20 MG capsule Take 4 Caps by mouth daily. 360 Cap 1 No facility-administered medications prior to visit. 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 Worked at [employer] x 8 years Nonsmoker, no EtOH Family Hx: Colon cancer - mother age 80s No Crohn's disease or ulcerative colitis Kidney cancer - sister, breast cancer - sister, throat cancer - brother Exam: BP 157/95 Pulse 82 Temp(Src) 97.8 ??F (36.6 ??C) (Oral) Ht 5' 9 (1.753 m) A&O, NAD, breathing nonlabored Sclera nonicteric Motor and sensation intact upper extremities Lungs clear bilaterally RRR, no murmur appreciated Abd protuberant but soft, nontender Colostomy site unremarkable, stool present in bag Skin is insensate below nipple line No motor function in legs JENIFER + anoscopy: perianal skin is intact and healthy in appearance No fissures, masses, fistulae Assessment/Recommendations: Favor spasm related to spinal cord tumor and debulking A number of treatment options are available although none with consistent success. The main objective is to obtain relaxation of the muscles in the area. A number of recommendations were discussed withpatient and are described in Dr. Browne's note on this date. The patient agrees to start with warm soaks and/or compress to the anal area. He can experiment with the different recommendations as he sees fit. The possibility of this being an ongoing and frustrating problem was also clearly stated. We will be happy to see him in follow up to see how things are going. Patient seen with Dr. Pavan Harrington MD PGY-6 --- End of Report --- documented in this encounter Plan of Treatment Not on filedocumented as of this encounter Visit Diagnoses Diagnosis Proctalgia fugax - Primary Anal spasm documented in this encounter Care Teams Director Career Services Relationship Specialty Start Date End Date Provider, Obtain PCP - General 04/15/13 09/03/13 documented as of this encounter
--- OUTSIDE RECORDS SUMMARY | 2022-06-20 02:28 | XMS_ITS | Encounter Summary ---
:1945 Author Organization [facility] Address [address] [place] [address] Care Team Providers Name Role Phone Provider, Obtain Primary Care Provider Unavailable Encounter Details Date Type Department Care Team Description 04/20/2013 Office Visit Specialty Center 401 Zelalem Calles ack pain (Primary Interventional Pain L, DO Dx) Management [address] [place] [address] [phone] Social History Tobacco Use Types Packs/Day Years Used Date Smoking Tobacco: Never Smokeless Tobacco: Never Alcohol Use Standard Drinks/Week Comments No 0 (1 standard drink = 0.6 oz pure alcoho l) Sex Assigned at Date Recorded Male 08/06/2021 5:59 PM CDT documented as of this encounter Last Filed Vital Signs Vital Sign Reading Time Taken Comments Blood Pressure 93/57 04/20/2013 1:40 PM CDT Pulse 101 04/20/2013 1:40 PM CDT Temperature - - Respiratory Rate - - Oxygen Saturation - - Inhaled Oxygen Concentration - - Weight - - Height - - Body Mass Index - - documented in this encounter Patient Instructions Patient InstructionsZelalem Calles MD - 04/20/2013 1:48 PM CDT 1. Continue the tizanidine 2. Continue the norflex 3. Decrease by one tab of baclofen every 5 days 4. Try to decrease/eliminate the morphine suppository 5. Continue the lyrica with no change 6. Continue the cymbalta with no change Dr. calles documented in this encounter Progress Notes Zelalem Calles MD - 04/20/2013 1:53 PM CDT Pain clinic follow up visit: Subjective: back [...] lyrica 7. F/u in 6-8 months Zelalem Calles DO 04/20/2013, 1:53 PM documented in this encounter Plan of Treatment Not on filedocumented as of this encounter Visit Diagnoses Diagnosis Back pain - Primary Backache, unspecified documented in this encounter Care Teams Order Processing Specialist Relationship Specialty Start Date End Date Provider, Obtain PCP - General 04/15/13 09/03/13 documented as of this encounter
--- OUTSIDE RECORDS SUMMARY | 2022-06-20 02:28 | XMS_ITS | Encounter Summary ---
:1945 Author Organization [facility] Address [address] [address] Care Team Providers Name Role Phone Garry Neff MD Primary Care Provider Reason for Visit Reason Onset Date Comments Medication Request 09/24/2012 Encounter Details Date Type Department Care Team Description 09/24/2012 Telephone Specialty Center [address] Zelalem Cohen , Medication Request Interventional Pain DO Management [address] [place] [phone] Social History Tobacco Use Types Packs/Day Years Used Date Smoking Tobacco: Never Smokeless Tobacco: Never Alcohol Use Standard Drinks/Week Comments No 0 (1 standard drink = 0.6 oz pure alcoho l) Sex Assigned at Date Recorded Male 08/06/2021 5:59 PM CDT documented as of this encounter Nursing Notes Mi Osborne RN - 09/25/2012 2:[address] Cohen authorized 1 month supply 11 refills. Refills sent. Mi Osborne RN 09/25/2012, 2:36 PM ING MACHINE OPERATOR Mi Osborne RN - 09/24/2012 2:34 PM CST Patient was last seen 07/29 and last baclofen rx was from that date. He has f/u scheduled 10/21. Ok to refill baclofen? Mi Osborne RN 09/24/2012, 2:35 PM ING MACHINE OPERATOR documented in this encounter Plan of Treatment Not on filedocumented as of this encounter Visit Diagnoses Diagnosis Back pain - Primary Backache, unspecified documented in this encounter Care Teams Nut Sorter Operator Relationship Specialty Start Date End Date Garry Neff MD PCP - General Neurosurgery 04/24/12 04/14/13 [address] [place] [address] documented as of this encounter
--- OUTSIDE RECORDS SUMMARY | 2022-06-20 02:28 | XMS_ITS | Encounter Summary ---
:1945 Author Organization [facility] Address [address], [place] [address] Care Team Providers Name Role Phone Unassigned, Provider Primary Care Provider Unavailable Reason for Visit Reason Onset Date Comments Refill 10/07/2013 lyrica 90 day Encounter Details Date Type Department Care Team Description 10/07/2013 Refill Specialty Center [address] Zelalem Cohen , Refill (lyrica 90 day) Interventional Pain DO Management [address] [place] [phone] Social History Tobacco Use Types Packs/Day Years Used Date Smoking Tobacco: Never Smokeless Tobacco: Never Alcohol Use Standard Drinks/Week Comments No 0 (1 standard drink = 0.6 oz pure alcoho l) Sex Assigned at Date Recorded Male 08/06/2021 5:59 PM CDT documented as of this encounter Nursing Notes Romelia Chamberlain - 10/13/2013 11:21 AM CST Faxed to pharmacy on 10/12/13 CONDITIONING WORKER Romelia Chamberlain - 10/12/2013 3:46 PM CST Refill printed. CONDITIONING WORKER Zelalem Cohen MD - 10/12/2013 1:31 PM CST Jill, josephine hidalgoe [address] Benito Cohen CONDITIONING WORKER Romelia Chamberlain - 10/12/2013 12:08 PM CST Needs 90 day supply. CONDITIONING WORKER Romelia Chamberlain - 10/12/2013 12:07 PM CST Last rx'd:07/28/2013 pregabalin (LYRICA) 50 MG capsule Qty: 540 Cap Refills: 0 Sig : Take 2 Caps by mouth three times a day. Pain clinic follow up visit: Subjective: back [...] lyrica 7. F/u in 6-8 months Zelalem Cohen, DO 04/20/2013, 1:53 PM CONDITIONING WORKER Yazmin Montoya - 10/07/2013 5:04 PM CST Refill request: Medication: pregabalin (LYRICA) 50 MG capsule Patient Sig: Take 2 Caps by mouth three times a day. Dispense: 540 Date of last Refill: 07/28/2013 CONDITIONING WORKER documented in this encounter Plan of Treatment Not on filedocumented as of this encounter Visit Diagnoses Diagnosis Back pain - Primary Backache, unspecified documented in this encounter Care Teams Manager Of Software Relationship Specialty Start Date End Date Unassigned, Provider PCP - General Unknown Physician 09/04/13 12/15/13 [address] [place] [address] documented as of this encounter
--- OUTSIDE RECORDS SUMMARY | 2022-06-20 02:28 | XMS_ITS | Encounter Summary ---
:1945 Author Organization [facility] Address [address], [place] [address] Care Team Providers Name Role Phone Franklin Squires MD Primary Care Provider Encounter Details Date Type Department Care Team Description 01/08/2013 Scanned History External to Transferred Record, ELIGIO RVIEW ZONAI Provider HOSPTIAL Social History Tobacco Use Types Packs/Day Years Used Date Smoking Tobacco: Never Smokeless Tobacco: Never Alcohol Use Standard Drinks/Week Comments No 0 (1 standard drink = 0.6 oz pure alcoho l) Sex Assigned at Date Recorded Male 08/06/2021 5:59 PM CDT documented as of this encounter Progress Notes Transferred Record, Provider - 01/08/2013 12:00 AM CST documented in this encounter Plan of Treatment Not on filedocumented as of this encounter Visit Diagnoses Not on filedocumented in this encounter Care Teams Hot Patcher Relationship Specialty Start Date End Date Franklin Squires MD PCP - General Family Practice 03/08/[address] [place] [address] [facility] [id number] documented as of this encounter
--- OUTSIDE RECORDS SUMMARY | 2022-06-20 02:28 | XMS_ITS | Encounter Summary ---
:1945 Author Organization [facility] Address [address], [place] [address] Care Team Providers Name Role Phone Provider, Obtain Primary Care Provider Unavailable Reason for Visit Procedure/Equipment (Routine) - Closed Specialty Diagnoses / Procedures Referred By Contact Refer red To Contact Diagnoses Thoracic spine tumor (HRC) Garry Neff MD Procedures MR THORACIC SPINE [address] [place] [address] Referral ID Status Reason Start Date Expiration Date Visits Requ ested Visits Authorized [id number] Closed 11/26/2012 1 1 Encounter Details Date Type Department Care Team Description 04/20/2013 Imaging [facility] Special[facility] Alfonso Neff, Thoracic spine tumor Center [address] [place] [address] [place] [address] [phone] (Wo rk) Social History Tobacco Use Types [...] Diagnosis Comme nts MR THORACIC SPINE Routine 04/20/2013 12:58 PM Thoracic spine t umor Results for this W/WO IV CONT CDT procedure are i n the results section. documented in this encounter Results MR THORACIC SPINE WITH/WITHOUT CONTRAST (04/20/2013 12:58 PM CDT) Anatomical Region Laterality Modality Spine, T-Spine, L-Spine, C-Spine, Skeletal Magnetic Resonance Specimen (Source) Anatomical Collection Method Collection Time Re ceived Time Location / / Volume Laterality 04/20/2013 12:58 PM CDT Narrative 04/20/2013 3:00 PM CDT [facility] MRI THORACIC AND LUMBAR SPINE 04/20/2013. 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 TECHNIQUE: Routine thoracic protocol wit hout and with gadolinium. CONTRAST: Magnevist 20 mL IV. COMPARISON: Most recent MRI 11/13/2012 and 04/24/2012. FINDINGS: ??Evaluation of the thoracic s pine again demonstrates T2 through T6 laminectomies for spinal cord tumor r esection. The spinal cord from T2 through the mid and upper aspect of the laminectomy levels is poorly visualized and unchanged compared to nancy or study 11/13/2012. The spinal cord in the lower laminectomy bed and in the lower midthoracic region is atrophic and also stable from prior stud y. Nothing definite to suggest recurrent enhancing tumor. Again seen is abnormal increased signal in the distal spinal cord/conus medullaris with out pathologic enhancement. This is stable from the prior two studies. It i s mildly expansile. It is indeterminate. Again seen are post radiation changes in the upper thoracic spine unchanged. Decreasing postoperative flui d collection in the thoracic laminectomy bed from prior study. Stable degenerative changes in the thora cic discs. No new high-grade central spinal canal narrowing in the th oracic spine. CONCLUSION: 1. Overall the appearance of the thoraci c spine is stable compared to MRI 11/13/2012. 2. Previous upper thoracic laminectomies for spinal cord tumor resection are again seen with post radiation couch es in the upper thoracic vertebral bodies. Nothing definite to suggest recu rrent enhancing tumor in the thoracic spine. 3. Again seen is abnormal mildly expansi le increased signal in the distal spinal cord/conus medullaris which is st able from prior study and again does not enhance. This is indeterminate. MRI LUMBAR SPINE TECHNIQUE: Without and with gadolinium. COMPARISON: MRI lumbar spine 09/18/2011. FINDINGS: ??This report assumes five lum bar type vertebral bodies. Alignment of the lumbar spine satisfactory. Again seen is clumping of the nerve roots of the cauda equina in the upper, mid and lower lumbar region which appears quite similar to the previous MR I 09/18/2011. 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 T12-L1: Normal disc height and hydration . Central canal and T12-L1 foramen adequate. L1-L2: Normal disc height and hydration. Mild facet arthropathy. Central canal and both L1-L2 foramen adequate. M ild degenerative endplate changes along the superior endplate of L2 now pr esent. L2-L3: Mild disc dehydration with modera te facet arthropathy. Central canal and L2-L3 foramen adequate. L3-L4: Moderate disc degeneration with m oderate facet arthropathy. Central canal and L3-L4 foramen adequate. There are degenerative changes in the bony endplates at this level. L4-L5: Mild to moderate disc degeneratio n again seen with moderate facet arthropathy. Mild disc bulging with mild central canal narrowing. Mild narrowing of the caudal aspects of the L 4-L5 foramen. L5-S1: Advanced disc degeneration again seen with loss of disc height and hydration. Fairly advanced facet arthrop athy. Mild dorsal spurring and disc bulging. The central canal is adequate. L5-S1 foramen are mildly narrowed greater on the left but stable. Atrophic changes in the paraspinal muscu lature again seen. Presumed cysts in both kidneys. CONCLUSION: 1. Overall the appearance of the lumbar spine is stable from previous MRI 09/18/2011. 2. Again seen is clumping of the nerve r oots of the cauda equina within the lumbar region without pathologic enhanc ement. 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 Nothing defin ite for drop metastasis to the lumbar spine. 3. No new high-grade central spinal dilia l narrowing or new significant lumbar disc herniation. 4. Degenerative changes in the lumbar di scs greatest at the L5-S1 level. Moderate to advanced facet arthropathy s table from prior study. 5. Stable at least moderate narrowing of both of the L5-S1 neural foramen. Procedure Note Harshad Browne MD - 04/20/2013Formatt ing of this note might be different from the original. [facility] MRI THORACIC AND LUMBAR SPINE 04/20/2013. 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 TECHNIQUE: Routine thoracic protocol wit hout and with gadolinium. CONTRAST: Magnevist 20 mL IV. COMPARISON: Most recent MRI 11/13/2012 and 04/24/2012. FINDINGS: Evaluation of the thoracic spi ne again demonstrates T2 through T6 laminectomies for spinal cord tumor r esection. The spinal cord from T2 through the mid and upper aspect of the laminectomy levels is poorly visualized and unchanged compared to nancy or study 11/13/2012. The spinal cord in the lower laminectomy bed and in the lower midthoracic region is atrophic and also stable from prior stud y. Nothing definite to suggest recurrent enhancing tumor. Again seen is abnormal increased signal in the distal spinal cord/conus medullaris with out pathologic enhancement. This is stable from the prior two studies. It i s mildly expansile. It is indeterminate. Again seen are post radiation changes in the upper thoracic spine unchanged. Decreasing postoperative flui d collection in the thoracic laminectomy bed from prior study. Stable degenerative changes in the thora cic discs. No new high-grade central spinal canal narrowing in the th oracic spine. CONCLUSION: 1. Overall the appearance of the thoraci c spine is stable compared to MRI 11/13/2012. 2. Previous upper thoracic laminectomies for spinal cord tumor resection are again seen with post radiation couch es in the upper thoracic vertebral bodies. Nothing definite to suggest recu rrent enhancing tumor in the thoracic spine. 3. Again seen is abnormal mildly expansi le increased signal in the distal spinal cord/conus medullaris which is st able from prior study and again does not enhance. This is indeterminate. MRI LUMBAR SPINE TECHNIQUE: Without and with gadolinium. COMPARISON: MRI lumbar spine 09/18/2011. FINDINGS: This report assumes five lumba r type vertebral bodies. Alignment of the lumbar spine satisfactory. Again seen is clumping of the nerve roots of the cauda equina in the upper, mid and lower lumbar region which appears quite similar to the previous MR I 09/18/2011. 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 T12-L1: Normal disc height and hydration . Central canal and T12-L1 foramen adequate. L1-L2: Normal disc height and hydration. Mild facet arthropathy. Central canal and both L1-L2 foramen adequate. M ild degenerative endplate changes along the superior endplate of L2 now pr esent. L2-L3: Mild disc dehydration with modera te facet arthropathy. Central canal and L2-L3 foramen adequate. L3-L4: Moderate disc degeneration with m oderate facet arthropathy. Central canal and L3-L4 foramen adequate. There are degenerative changes in the bony endplates at this level. L4-L5: Mild to moderate disc degeneratio n again seen with moderate facet arthropathy. Mild disc bulging with mild central canal narrowing. Mild narrowing of the caudal aspects of the L 4-L5 foramen. L5-S1: Advanced disc degeneration again seen with loss of disc height and hydration. Fairly advanced facet arthrop athy. Mild dorsal spurring and disc bulging. The central canal is adequate. L5-S1 foramen are mildly narrowed greater on the left but stable. Atrophic changes in the paraspinal muscu lature again seen. Presumed cysts in both kidneys. CONCLUSION: 1. Overall the appearance of the lumbar spine is stable from previous MRI 09/18/2011. 2. Again seen is clumping of the nerve r oots of the cauda equina within the lumbar region without pathologic enhanc ement. 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 Nothing defin ite for drop metastasis to the lumbar spine. 3. No new high-grade central spinal dilia l narrowing or new significant lumbar disc herniation. 4. Degenerative changes in the lumbar di scs greatest at the L5-S1 level. Moderate to advanced facet arthropathy s table from prior study. 5. Stable at least moderate narrowing of both of the L5-S1 neural foramen. Garry Neff MD RAD MRI documented in this encounter Visit Diagnoses Diagnosis Thoracic spine tumor (HRC) Neoplasm of unspecified nature of bone, soft tissue, and skin documented in this encounter Care Teams Radiology Therapist Relationship Specialty Start Date End Date Provider, Obtain PCP - General 04/15/13 09/03/13 documented as of this encounter
--- OUTSIDE RECORDS SUMMARY | 2022-06-20 02:28 | XMS_ITS | Encounter Summary ---
:1945 Author [facility] Address [address] [address] Care Team Providers Name Role Phone Garry Neff MD Primary Care Provider Reason for Referral Procedure/Equipment (Routine) - Closed Specialty Diagnoses / Procedures Referred By Contact Refer red To Contact Diagnoses Back pain Rectal pain Zelalem Cohen DO [address] [place] [address] Referral ID Status Reason Start Date Expiration Date Visits Requ ested Visits Authorized [id number] Closed 02/25/2013 1 1 Scheduling Instructions If scheduling assistance is needed, ninfa duran inquire with the medical office staff upon exiting your appointment or contact the ordering clinic for recommended locations. This recommended service/s may not be co maycol by your insurance coverage. To find out your specific benefit coverage, please c all the number on your insurance card. Reason for Visit Reason Onset Date Comments Medication Questions 02/23/2013 Encounter Details Date Type Department Care Team Description 02/23/2013 Telephone Specialty Center 401 Zelalem Cohen edication Questions Interventional Pain L, DO Management [address] [place] [id number] Social History Tobacco Use Types Packs/Day Years Used Date Smoking Tobacco: Never Smokeless Tobacco: Never Alcohol Use Standard Drinks/Week Comments No 0 (1 standard drink = 0.6 oz pure alcoho l) Sex Assigned at Date Recorded Male 08/06/2021 5:59 PM CDT documented as of this encounter Nursing Notes Mi Osborne RN - 02/25/2013 11:[address] Cohen recommends acupuncture for patient's back and rectal pain. Informed patient. He is in agreement with trying acupuncture with Dr. Mariama Singh. Gave patient phone numbers to schedule. Instructed him to contact insurance regarding coverage. Order entered. Mi Osborne RN 02/25/2013, 11:01 AM Mi Osborne RN - 02/24/2013 2:[address] Cohen states that patient can either restart tizanidine or try Norflex 100mg BID. Patient is to stay on baclofen as well. Informed patient. He states that he would like to try Norflex. Assured patient that rx would be sent to pharmacy. Instructed him not to take tizanidine and Norflex together. Encouraged patient to call pharmacy first to see if PA is needed. Patient also shares that his rectal pain is not too good. He reports no change in this pain after stopping Morphine suppositories. He shares that compounded gel helps some. Patient wondering if Dr. Cohen needs to talk to Dr. Marte his surgeon at [facility]. Assured patient that Dr. Cohen would see his message. Any new recommendations for rectal pain? Mi Osborne RN 02/24/2013, 2:23 PM Mariana Borjas - 02/23/2013 3:11 PM CDT Pt calling re taper of tizanidine. He is having more back pain and noticing the difference. Please advise. Mariana Borjas documented in this encounter Plan of Treatment Scheduled Referrals Name Type Priority Associated Diagnoses Order S chedule ACUPUNCTURE (Referral Referral Routine Back Pain Ordered: 02/25/2013 for Procedure) Rectal pain documented as of this encounter Visit Diagnoses Diagnosis Back pain - Primary Backache, unspecified Rectal pain Anal or rectal pain documented in this encounter Care Teams Freelance Programmer/App Developer Relationship Specialty Start Date End Date Garry Neff MD PCP - General Neurosurgery 04/24/12 04/14/13 [address] [place] [address] documented as of this encounter
--- OUTSIDE RECORDS SUMMARY | 2022-06-20 02:28 | XMS_ITS | Encounter Summary ---
:1945 Author Organization [facility] Address [address], [place] [address] Care Team Providers Name Role Phone Garry Neff MD Primary Care Provider Reason for Visit Reason Comments Refill Encounter Details Date Type Department Care Team Description 08/20/2012 Refill [facility] 401 Zelalem Cohen, DO Refill Interventional Pain Management [address] [place] [address] [place] [address] [phone] Social History Tobacco Use Types Packs/Day Years Used Date Smoking Tobacco: Never Smokeless Tobacco: Never Alcohol Use Standard Drinks/Week Comments No 0 (1 standard drink = 0.6 oz pure alcoho l) Sex Assigned at Date Recorded Male 08/06/2021 5:59 PM CDT documented as of this encounter Nursing Notes Mi Osborne RN - 08/21/2012 11:24 AM CDT Last Lyrica rx was 05/02. Per 08/04 email, patient is to stay on Lyrica 100mg TID. Patient has f/u scheduled in October with Dr. Cohen. Refills sent to preferred pharmacy. Mi Osborne RN 08/21/2012, 11:25 AM documented in this encounter Plan of Treatment Not on filedocumented as of this encounter Visit Diagnoses Diagnosis Back pain - Primary Backache, unspecified documented in this encounter Care Teams Media Sales Representative Relationship Specialty Start Date End Date Garry Neff MD PCP - General Neurosurgery 04/24/12 04/14/13 [address] [place] [address] documented as of this encounter
--- OUTSIDE RECORDS SUMMARY | 2022-06-20 02:28 | XMS_ITS | Encounter Summary ---
:[address] [facility] Address [address], [place] [address] Care Team Providers Name Role Phone Provider, Obtain Primary Care Provider Unavailable Reason for Referral Procedure/Equipment (Routine) - Closed Specialty Diagnoses / Procedures Referred By Contact Refer red To Contact Procedures Garry Neff MD MR THORACIC SPINE [address] WITH/WITHOUT CONTRAST [place], [place] [address] Referral ID Status Reason Start Date Expiration Date Visits Requ ested Visits Authorized [id number] Closed 04/20/2013 1 1 Reason for Visit Reason Comments Revisit Encounter Details Date Type Department Care Team Description 04/20/2013 Office Visit Specialty Center Garry Neff Epe ndymoma (Primary [address] [facility] X, Dx) [address] [place] [address] [place], [place] [phone] (Wo rk) Social History Tobacco Use Types Packs/Day Years Used Date Smoking Tobacco: Never Smokeless Tobacco: Never Alcohol Use Standard Drinks/Week Comments No 0 (1 standard drink = 0.6 oz pure alcoho l) Sex Assigned at Date Recorded Male 08/06/2021 5:59 PM CDT documented as of this encounter Last Filed Vital Signs Vital Sign Reading Time Taken Comments Blood Pressure 70/45 04/20/2013 2:15 PM CDT Pulse 96 04/20/2013 2:15 PM CDT Temperature - - Respiratory Rate 16 04/20/2013 2:15 PM CDT Oxygen Saturation - - Inhaled Oxygen Concentration - - Weight - - Height - - Body Mass Index - - documented in this encounter Patient Instructions Patient InstructionsSelene Johnson RN - 04/20/2013 2:42 PM CDT Neurosurgery/Spine Clinic Patient Instructions You will be scheduled for a thoracic MRI. Follow up with Dr. Garry Neff 6 months-with MRI prior to your appointment If tests were ordered, they will be [...] understanding. Please call the Neurosurgery/Spine Clinic at [phone] with any further questions or concerns. documented in this encounter Progress Notes Garry Neff MD - 05/19/2013 3:22 PM CDT Agree with above Garry Neff MD Jodi Smith PA-C - 05/19/2013 3:02 PM CDT I, Jodi Smith PA-C, am acting as a special education associate for Dr. Neff, I am transcribing directly from notes Dr. Neff took during the clinic visit Clinic Follow-up Chief Complaint: Follow up MRI Jeff Cullen is a 68 yr old male presents today for a follow up visit. 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 On May 29, 2010 we removed the baclofen pump and catheter and pt was then placed on IV abx for 10 days following the procedure. Currently Jeff has back pain rated 4-8/10, primarily on left side above buttocks. He does have spasms in back and abdomen. No new symptoms. We have been performing MRIs every 6 months. Objective: BP 70/45 Pulse 96 Resp 16 Imaging: Thoracolumbar MRI: 1. Overall the appearance of the thoracic spine is stable compared to MRI 11/13/2012. 2. Previous upper thoracic laminectomies for spinal cord tumor resection are again seen with post radiation changes in the upper thoracic vertebral bodies. Nothing definite to suggest recurrent enhancing tumor in the thoracic spine. 3. Again seen is abnormal mildly expansile increased signal in the distal spinal cord/conus medullaris which is stable from prior study and again does not enhance. This is indeterminate. 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 No evidence of recurrence. Plan Recommend repeat thoracic MRI in 6 months. Pt was seen and evaluated by Dr. Neff, who discussed the plan in full with patient and answered all questions. Jeff expressed agreement and understanding with this plan. Total time Dr. Neff spent [id number] with patient was 15 minutes, over 50% spent on counseling. Jodi Smith PA-C Neurosurgery This note created using speech-recognition software and may contain unintended word substitutions. documented in this encounter Plan of Treatment Not on filedocumented as of this encounter Results MR THORACIC SPINE WITH/WITHOUT CONTRAST (12/16/2013 1:10 PM LAST MODEL MAKER) Anatomical Region Laterality Modality Spine, T-Spine, L-Spine, C-Spine, Skeletal Magnetic Resonance Specimen (Source) Anatomical Collection Method Collection Time Re ceived Time Location / / Volume Laterality 12/16/2013 1:21 PM LAST MODEL MAKER Narrative 12/16/2013 3:08 PM LAST MODEL MAKER [facility] MRI THORACIC SPINE WITHOUT AND [...] note might be different from the original. [facility] MRI THORACIC SPINE WITHOUT AND [...] unspecified site Screening for nephropathy - Primary documented in this encounter Care Teams Efficiency Manager Relationship Specialty Start Date End Date Provider, Obtain PCP - General 04/15/13 09/03/13 documented as of this encounter
--- OUTSIDE RECORDS SUMMARY | 2022-06-20 02:28 | XMS_ITS | Encounter Summary ---
:1945 Author Organization [facility] Address [address], [place] [address] Care Team Providers Name Role Phone Garry Neff MD Primary Care Provider Encounter Details Date Type Department Care Team Description 03/27/2013 Notes/Orders Specialty Center Selene Johnson endymoma (Primary [address] [facility] M, RN Dx) [address] [place] [address] [place], [place] [phone] (Wo rk) Social History Tobacco Use Types Packs/Day Years Used Date Smoking Tobacco: Never Smokeless Tobacco: Never Alcohol Use Standard Drinks/Week Comments No 0 (1 standard drink = 0.6 oz pure alcoho l) Sex Assigned at Date Recorded Male 08/06/2021 5:59 PM CDT documented as of this encounter Patient Instructions Patient InstructionsRuSelene tee RN - 03/27/2013 2:24 PM CDT Orders placed for MRI and valium for relaxation for MRI.Selene Johnson RN 03/27/2013, 2:24 PM documented in this encounter Plan of Treatment Not on filedocumented as of this encounter Visit Diagnoses Diagnosis 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
--- OUTSIDE RECORDS SUMMARY | 2022-06-20 02:28 | XMS_ITS | Encounter Summary ---
:1945 Author Organization [facility] Address [address] [place] [address] Care Team Providers Name Role Phone Garry Neff MD Primary Care Provider Encounter Details Date Type Department Care Team Description 10/23/2012 Orders Only External to [facility] No Primary/Referring, Phy Social History Tobacco Use Types Packs/Day Years Used Date Smoking Tobacco: Never Smokeless Tobacco: Never Alcohol Use Standard Drinks/Week Comments No 0 (1 standard drink = 0.6 oz pure alcoho l) Sex Assigned at Date Recorded Male 08/06/2021 5:59 PM CDT documented as of this encounter Procedure Notes No Primary/Referring, Phy - 10/23/2012 12:00 AM CSTAssociated Order(s): SCANNED LAB documented in this encounter Plan of Treatment Not on filedocumented as of this encounter Procedures Procedure Name Priority Date/Time Associated Diagnosis Comme nts SCANNED LAB 10/23/2012 12:00 AM Results for this TOBY MAKER procedure are i n the results section . documented in this encounter Results SCANNED LAB (10/23/2012 12:00 AM TOBY MAKER) Specimen (Source) Anatomical Location Collection Method / Collectio n Time Received Time / Laterality Volume 10/23/2012 Narrative This result has an attachment that is no t available. Transcriptions No Primary/Referring, Phy - 10/23/2012 1 2:00 AM CST Phy No Primary/Referring LAB_1 documented in this encounter Visit Diagnoses Not on filedocumented in this encounter Care Teams Sealer Operator Relationship Specialty Start Date End Date Garry Neff MD PCP - General Neurosurgery 04/24/12 04/14/13 [address] [place] [address] documented as of this encounter
--- OUTSIDE RECORDS SUMMARY | 2022-06-20 02:28 | XMS_ITS | Encounter Summary ---
:1945 Author Organization [employer] Address [address] [place] [address] Care Team Providers Name Role Phone Garry Neff MD Primary Care Provider Reason for Visit Reason Comments Revisit back pain Encounter Details Date Type Department Care Team Description 07/29/2012 Office Visit Specialty Center 401 Zelalem Cohen ack pain (Primary Interventional Pain L, DO Dx) Management [address] [place] [address] [phone] Social History Tobacco Use Types Packs/Day Years Used Date Smoking Tobacco: Never Smokeless Tobacco: Never Alcohol Use Standard Drinks/Week Comments No 0 (1 standard drink = 0.6 oz pure alcoho l) Sex Assigned at Date Recorded Male 08/06/2021 5:59 PM CDT documented as of this encounter Last Filed Vital Signs Vital Sign Reading Time Taken Comments Blood Pressure 104/58 07/29/2012 11:14 AM CDT Pulse 96 07/29/2012 11:14 AM CDT Temperature - - Respiratory Rate - - Oxygen Saturation - - Inhaled Oxygen Concentration - - Weight - - Height - - Body Mass Index - - documented in this encounter Progress Notes Zelalem Cohen MD - 07/29/2012 11:54 AM CDT Pain clinic follow up visit: Subjective: continues to have back pain. No sig change. Has episodes of possible low blood pressure with dizziness. Questions of medications are the cause. Saw pcp with no sig input. Taking lyrica withpossible SE of edema on top of dependent edema. Taking both baclofen and tizanidine. On cymbalta 20mg qid? Dosing schedule. Objective: Filed Vitals: 07/29/12 1114 BP: 104/58 Pulse: 96 Gen: nad, a/o, present, pt appears to be in better mood Msk: in w/c Assessment: 1. Hx of SCI, tumor 2. Back pain Plan of Care: 1. F/u with pcp re: low blood pressure 2. For now continue both baclofen and tizanidine 3. Continue cymbalta but change either to 40mg bid or 80g qday not 20mg qid 4. Taper off lyrica Follow up: pt to email in 4 wks Zelalem Cohen, 07/29/2012, 11:55 AM documented in this encounter Plan of Treatment Not on filedocumented as of this encounter Visit Diagnoses Diagnosis Back pain - Primary Backache, unspecified documented in this encounter Care Teams Intertype Operator Relationship Specialty Start Date End Date Garry Neff MD PCP - General Neurosurgery 04/24/12 04/14/13 [address] [place] [address] documented as of this encounter
--- OUTSIDE RECORDS SUMMARY | 2022-06-20 02:28 | XMS_ITS | Encounter Summary ---
:1945 Author [facility] Address [address], [place] [address] Care Team Providers Name Role Phone Garry Neff MD Primary Care Provider Reason for Visit Reason Onset Date Comments Medication Questions 06/23/2012 Encounter Details Date Type Department Care Team Description 06/23/2012 Telephone Specialty Center 401 Zelalem Cohen edication Questions Interventional Pain L, DO Management [address] [place] [phone] Social History Tobacco Use Types Packs/Day Years Used Date Smoking Tobacco: Never Smokeless Tobacco: Never Alcohol Use Standard Drinks/Week Comments No 0 (1 standard drink = 0.6 oz pure alcoho l) Sex Assigned at Date Recorded Male 08/06/2021 5:59 PM CDT documented as of this encounter Nursing Notes Charles Zapata RN - 06/25/2012 4:02 PM CDT Rx written as described below. Pt has no further questions at this time. Zelalem Cohen MD - 06/25/2012 9:26 AM CDT Ok for tizanidine what pt wants audra Mi Osborne RN - 06/24/2012 4:22 PM CDT Patient and state that patient was not having SEs or feeling tired when taking tizanidine 2mg three times during day and 4mg at night. He states that this regimen was very helpful for his back pain and that there must have been a misunderstanding at his appt with DR. Cohen. Med was changed to just 2mg qhs at that time. Patient states that he had been feeling sleepy when taking a 4mg dose during the day. Patient would like rx changed to the dose mentioned (2mg TID then 4mg qhs). Patient prefers [facility]. Please advise. Ok to change tizanidine rx? Mi Osborne, VALERIE 06/24/2012, 4:24 PM Arline Reese - 06/23/2012 2:53 PM CDT When the pt was seen last the pt was taking TIZAnidine (ZANAFLEX) 4MG tab Si/2 tab every 4 hoursor as needed. They would just like some medication clarification. He would like to know how he should take it. Because the pt has been taking the 1/2 tab of the 4mg every 4 hours or as needed. Please call pt with information. Thanks. Arline Reese 06/23/2012, 3:24 PM documented in this encounter Plan of Treatment Not on filedocumented as of this encounter Visit Diagnoses Diagnosis Back pain - Primary Backache, unspecified documented in this encounter Care Teams Rotary Operator Relationship Specialty Start Date End Date Garry Neff MD PCP - General Neurosurgery 04/24/12 04/14/13 [address] [place] [address] documented as of this encounter
--- OUTSIDE RECORDS SUMMARY | 2022-06-20 02:28 | XMS_ITS | Encounter Summary ---
:1945 Author Organization [facility] Address [address], [place] [address] Care Team Providers Name Role Phone Garry Neff MD Primary Care Provider Encounter Details Date Type Department Care Team Description 11/13/2012 [facility] Special[facility] Kaleigh Grewal , Screening for Center MRI MONOGRAM MACHINE OPERATOR, ICE CREAM SHOP ASSOCIATE nephropathy (Primary [address] Dx) [place] [address] [place], [place] [phone] (Wo rk) Social History Tobacco Use Types [...] Associated Diagnosis Comme nts CREATININE/GFR, WB Routine 11/13/2012 2:03 PM Screening for Re sults for this POC HEALTH PROFESSOR nephropathy procedure are i n the results section. MR THORACIC SPINE Routine 11/13/2012 12:08 PM Res ults for this W/WO IV CONT HEALTH PROFESSOR procedure are i n the results section. documented in this encounter Results CREATININE/GFR, WB POC (11/13/2012 2:03 PM HEALTH PROFESSOR) P athologist Signature Creat Whole 0.8 0.66 - [facility] Blood 1.25 mg/dl GFR, Estimated >60.0 >60 [facility] ml/min/1.7 3m2 GFR, Est., If >60.0 >60 [facility] Black ml/min/1.7 3m2 Specimen Anatomical Collection Method Collection Time Receive d Time (Source) Location / / Volume Laterality 11/13/2012 2:03 PM 3 2:26 HEALTH PROFESSOR PM HEALTH PROFESSOR Birgit Melton [facility]_1 Performing Organization Address City/State/ZIP Code Phon e Number [facility] [phone] [facility] [address] [phone] MR THORACIC SPINE WITH/WITHOUT CONTRAST (11/13/2012 12:08 PM HEALTH PROFESSOR) Anatomical Region Laterality Modality Spine, T-Spine, L-Spine, C-Spine, Skeletal Magnetic Resonance Specimen (Source) Anatomical Collection Method Collection Time Re ceived Time Location / / Volume Laterality 11/13/2012 12:08 PM HEALTH PROFESSOR Narrative 11/14/2012 10:35 AM HEALTH PROFESSOR [facility] THORACIC SPINE MRI 11/13/2012 INDICATION: Thoracic tumor resection. TECHNIQUE: Without and with gadolinium. 20 mL of Magnevist were intravenously administered. The estimate d GFR is greater than 60. COMPARISON: Thoracic spine MRI 04/24/2012 . FINDINGS: ??The thoracic vertebral michael s demonstrate normal heights and alignment. Radiation changes are noted f rom C7 through T1. Incidental T9 intraosseous hemangioma. Status post T2- T6 laminectomies. The cord is poorly visualized from T2-T3 through T4- T5. The most distal aspect of the cord is mildly expanded measuring 8.2 mm in greatest AP dimension and demonstrating T2 prolongation spanning f rom mid T10-T12. The remainder of the visualized cord has an atrophic appe arance. Findings have not significantly changed. No definite abnor mal contrast enhancement. Fluid collection within the soft tissues of th e operative bed is unchanged in size measuring 61.8 x 13 mm in craniocau liv by AP dimensions. Its signal characteristics are slightly more comple x implicating inspissated proteinaceous material. IMPRESSION: 1. 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 2. No residual or recurrent tumor is kristin ntified. 3. Stable appearance of the cord. No aftab dence of distant metastases. Procedure Note Riki Eng MD - 11/14/2012Formattin g of this note might be different from the original. [facility] THORACIC SPINE MRI 11/13/2012 INDICATION: Thoracic tumor resection. TECHNIQUE: Without and with gadolinium. 20 mL of Magnevist were intravenously administered. The estimate d GFR is greater than 60. COMPARISON: Thoracic spine MRI 04/24/2012 . FINDINGS: The thoracic vertebral bodies demonstrate normal heights and alignment. Radiation changes are noted f rom C7 through T1. Incidental T9 intraosseous hemangioma. Status post T2- T6 laminectomies. The cord is poorly visualized from T2-T3 through T4- T5. The most distal aspect of the cord is mildly expanded measuring 8.2 mm in greatest AP dimension and demonstrating T2 prolongation spanning f rom mid T10-T12. The remainder of the visualized cord has an atrophic appe arance. Findings have not significantly changed. No definite abnor mal contrast enhancement. Fluid collection within the soft tissues of th e operative bed is unchanged in size measuring 61.8 x 13 mm in craniocau liv by AP dimensions. Its signal characteristics are slightly more comple x implicating inspissated proteinaceous material. IMPRESSION: 1. 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 2. No residual or recurrent tumor is kristin ntified. 3. Stable appearance of the cord. No aftab dence of distant metastases. Garry Neff MD RAD MRI documented in this encounter Visit Diagnoses Diagnosis Screening for nephropathy - Primary documented in this encounter Care Teams Family Service Center Director Relationship Specialty Start Date End Date Garry Neff MD PCP - General Neurosurgery 04/24/12 04/14/13 [place] [address] documented as of this encounter
--- OUTSIDE RECORDS SUMMARY | 2022-06-20 02:28 | XMS_ITS | Encounter Summary ---
:1945 Author Organization [facility] Address [address] [place] [address] Care Team Providers Name Role Phone Provider, Obtain Primary Care Provider Unavailable Reason for Visit Procedure/Equipment (Routine) - Closed Specialty Diagnoses / Procedures Referred By Contact Refer red To Contact Procedures Selene Johnson RN MR LUMBAR SPINE WITHOUT [address] [place] [address] Referral ID Status Reason Start Date Expiration Date Visits Requ ested Visits Authorized [id number] Closed 03/27/2013 1 1 Encounter Details Date Type Department Care Team Description 04/20/2013 Imaging [facility] Specialty MingoJodi, Screening for Center MRI PA-C nephropathy (Primary [address] Dx) [place] [address] [place], [place] [phone] Social History Tobacco Use Types Packs/Day Years [...] Priority Date/Time Associated Diagnosis Comme nts MR LUMBAR SPINE Routine 04/20/2013 12:55 PM Resul ts for this W/WO IV CONT CDT procedure are i n the results section. CREATININE/GFR, WB Routine 04/20/2013 12:53 PM Screening for R esults for this POC CDT nephropathy procedure are i n the results section. documented in this encounter Results MR LUMBAR SPINE WITH/WITHOUT CONTRAST (04/20/2013 12:55 PM CDT) Anatomical Region Laterality Modality Spine, L-Spine, Skeletal Magnetic Resona nce Specimen (Source) Anatomical Collection Method Collection Time Re ceived Time Location / / Volume Laterality 04/20/2013 12:55 PM CDT Narrative 04/20/2013 3:[address] [facility] MRI THORACIC AND LUMBAR SPINE 04/20/2013. INDICATION: [...] note might be different from the original. [facility] MRI THORACIC AND LUMBAR SPINE 04/20/2013. INDICATION: [...] of both of the L5-S1 neural foramen. Jodi Aguila PA-C RAD MRI CREATININE/GFR, WB POC (04/20/2013 12:53 PM CDT) athologist Signature Creat Whole 0.9 0.66 - [facility] Blood 1.25 mg/dl LABORATORIES GFR, Estimated >60.0 >60 [facility] ml/min/1.7 LAB[facility]ATORIES 3m2 GFR, Est., If >60.0 >60 [facility] Black ml/min/1.7 LABORATORIES 3m2 Specimen Anatomical Collection Method Collection Time Receive d Time (Source) Location / / Volume Laterality 04/20/2013 12:53 04/20/2013 1:18 PM CDT PM CDT Narrative [facility] - 04/20/2013 1:35 PM C DT Performed at [place] [address] [facility], [address] [place] [address] Birgit ASKEW LAB_1 Performing Organization Address City/State/ZIP Code Phon e Number [facility] [phone] documented in this encounter Visit Diagnoses Diagnosis Screening for nephropathy - Primary documented in this encounter Care Teams Radiation Control Technician Relationship Specialty Start Date End Date Provider, Obtain PCP - General 04/15/13 09/03/13 documented as of this encounter
--- OUTSIDE RECORDS SUMMARY | 2022-06-20 02:28 | XMS_ITS | Encounter Summary ---
:1945 Author Organization [facility] Address [address] [address] Care Team Providers Name Role Phone Franklin Squires MD Primary Care Provider Encounter Details Date Type Department Care Team Description 07/23/2013 [facility] 401 Zelalem Cohen [facility] Interventional Pain DO Management [address] [place] [phone] Social History Tobacco Use Types Packs/Day Years Used Date Smoking Tobacco: Never Smokeless Tobacco: Never Alcohol Use Standard Drinks/Week Comments No 0 (1 standard drink = 0.6 oz pure alcoho l) Sex Assigned at Date Recorded Male 08/06/2021 5:59 PM CDT documented as of this encounter Progress Notes Zelalem Cohen MD - 07/23/2013 12:00 AM CDT ANICAL MAINTENANCE INSTRUCTOR documented in this encounter Plan of Treatment Not on filedocumented as of this encounter Visit Diagnoses Not on filedocumented in this encounter Care Teams Head Of Music Relationship Specialty Start Date End Date Franklin Squires MD PCP - General Family Practice 03/08/16 [address] [facility] [place] [address] documented as of this encounter
--- OUTSIDE RECORDS SUMMARY | 2022-06-20 02:28 | XMS_ITS | Encounter Summary ---
:1945 Author [facility] Address [address], [place] [address] Care Team Providers Name Role Phone Unassigned, Provider Primary Care Provider Unavailable Reason for Visit Reason Comments Refill Encounter Details Date Type Department Care Team Description 10/02/2013 Refill Specialty Center 401 Ana Cohen DO Refill Interventional Pain Management [address] [place] [address] [place] [address] [phone] Social History Tobacco Use Types Packs/Day Years Used Date Smoking Tobacco: Never Smokeless Tobacco: Never Alcohol Use Standard Drinks/Week Comments No 0 (1 standard drink = 0.6 oz pure alcoho l) Sex Assigned at Date Recorded Male 08/06/2021 5:59 PM CDT documented as of this encounter Nursing Notes Viktor Bo - 10/02/2013 3:58 PM CSTSigned Prescriptions: Disp Refills orphenadrine 100 MG tablet 180 [id number]: TAKE 1 TABLET BY MOUTH 2 TIMES A DAY NEEDED FOR MUSCLE SPASM OR PAINAuthorizing Provider: ANA COHEN User: ROMELIA ROSE RCYCLE SALES ASSOCIATE Romelia Rose - 10/02/2013 3:51 PM CST refilled RCYCLE SALES ASSOCIATE Ana Cohen MD - 10/02/2013 3:23 PM CST Norflex No change one month [address] Benito Cohen RCYCLE SALES ASSOCIATE Romelia Rose - 10/02/2013 9:37 AM CST Last Rx'd: 04/20/2013 orphenadrine 100 MG tablet Qty:180 Tab Refills: 1 Sig : Take 1 Tab by mouth two times a day as needed for Muscle Spasms or Pain. Pain clinic follow up visit: Subjective: back [...] with lyrica 7. F/u in 6-8 months Ana Cohen, 04/20/2013, 1:53 PM RCYCLE SALES ASSOCIATE documented in this encounter Plan of Treatment Not on filedocumented as of this encounter Visit Diagnoses Not on filedocumented in this encounter Care Teams Supervisor Sewing Room Relationship Specialty Start Date End Date Unassigned, Provider PCP - General Unknown Physician 09/04/13 12/15/[address] [place] [address] documented as of this encounter
--- OUTSIDE RECORDS SUMMARY | 2022-06-20 02:28 | XMS_ITS | Encounter Summary ---
:1945 Author [facility] Address [address], [place] [address] Care Team Providers Name Role Phone Franklin Squires MD Primary Care Provider Encounter Details Date Type Department Care Team Description 04/08/2013 Scanned History External to Transferred Record, COL ON AND RECTAL Provider SURGERY Social History Tobacco Use Types Packs/Day Years Used Date Smoking Tobacco: Never Smokeless Tobacco: Never Alcohol Use Standard Drinks/Week Comments No 0 (1 standard drink = 0.6 oz pure alcoho l) Sex Assigned at Date Recorded Male 08/06/2021 5:59 PM CDT documented as of this encounter Progress Notes Transferred Record, Provider - 04/08/2013 12:00 AM CDT documented in this encounter Plan of Treatment Not on filedocumented as of this encounter Visit Diagnoses Not on filedocumented in this encounter Care Teams Hospital Recruiter Relationship Specialty Start Date End Date Franklin Squires MD PCP - General Family Practice 03/08/[address] [place] [address] [place] [address] documented as of this encounter
--- OUTSIDE RECORDS SUMMARY | 2022-06-20 02:28 | XMS_ITS | Encounter Summary ---
:1945 Author Organization [facility] Address [address] [address] Care Team Providers Name Role Phone Provider, Obtain Primary Care Provider Unavailable Reason for Visit Reason Onset Date Comments Medication Questions 07/28/2013 Encounter Details Date Type Department Care Team Description 07/28/2013 Telephone Specialty Center 401 Zelalem Cohen edication Questions Interventional Pain L, DO Management [address] [place] [phone] Social History Tobacco Use Types Packs/Day Years Used Date Smoking Tobacco: Never Smokeless Tobacco: Never Alcohol Use Standard Drinks/Week Comments No 0 (1 standard drink = 0.6 oz pure alcoho l) Sex Assigned at Date Recorded Male 08/06/2021 5:59 PM CDT documented as of this encounter Nursing Notes Romelia Chamberlain - 07/28/2013 10:16 AM CDT [phone] [facility] confirmation number [id number] for a clarification on the quantity, nothing to do with the PA. Spoke with pharmacy who states that they never got the prescription to begin with verbal order givenfor the prescription. Yazmin Montoya - 07/28/2013 9:55 AM CDT Pt's called back stating that the pharmacy is still having issues with the PA for pregabalin (LYRICA) 50 MG capsule. Would like to discuss with nurse. [phone] documented in this encounter Plan of Treatment Not on filedocumented as of this encounter Visit Diagnoses Diagnosis Back pain - Primary Backache, unspecified documented in this encounter Care Teams Camp Manager Relationship Specialty Start Date End Date Provider, Obtain PCP - General 04/15/13 09/03/13 documented as of this encounter
--- OUTSIDE RECORDS SUMMARY | 2022-06-20 02:28 | XMS_ITS | Encounter Summary ---
:1945 Author Organization [facility] Address [address], [place] [address] Care Team Providers Name Role Phone Provider, Obtain Primary Care Provider Unavailable Reason for Visit Reason Onset Date Comments Medication Questions 07/20/2013 lyrica Encounter Details Date Type Department Care Team Description 07/20/2013 Telephone Specialty Center 401 Zelalem Cohen edication Questions Interventional Pain L, DO (lyrica) Management [address] [place] [phone] Social History Tobacco Use Types Packs/Day Years Used Date Smoking Tobacco: Never Smokeless Tobacco: Never Alcohol Use Standard Drinks/Week Comments No 0 (1 standard drink = 0.6 oz pure alcoho l) Sex Assigned at Date Recorded Male 08/06/2021 5:59 PM CDT documented as of this encounter Nursing Notes Romelia Chamberlain - 07/22/2013 9:45 AM CDT 30 day supply sent to [facility] in [facility]. Called the prior authorization in to [facility] approved 06/22/13 to [employer], approval number #[id number]. Pt informed. David Medeiros RN - 07/21/2013 4:25 PM CDT calling again to check on status of PA with [facility]. Phone # for [facility] [phone]. claims that the Pt has been getting the 50 mg qty with no issues. RX # [id number] qty 540 50 ng capsule RN explained that this will be investigated further JORGE LUIS. is asking to have a 30 day [facility] [place]. Celia [place] - 07/21/2013 12:52 PM CDT Patient is returning phone call. Romelia Chamberlain - 07/21/2013 12:42 PM CDT Left message for patient's to call back to clinic. Do not see an ALIVIA on file. Yazmin Montoya - 07/21/2013 11:56 AM CDT Pt's Heather called back stating she would like to discuss PA with nurse. [phone] David Medeiros RN - 07/20/2013 3:28 PM CDT PA needs to be completed for the Lyrica 50 mg caps. Previously approved at the 25 mg dosage. RN contacted Lucas Zhang / [employer] to initiate the PA process. Currently awaiting PA Forms. Case # [id number]. David Medeiros RN 07/20/2013, 3:41 PM Celia [place] - 07/20/2013 2:04 PM CDT Patient is calling in again states this is important and she would like to speak to nurse today Yazmin Montoya - 07/20/2013 11:34 AM CDT Pt's called requesting to speak with Dr. Cohen or nurse regarding pt's pregabalin (LYRICA) 50MG capsule. [phone] documented in this encounter Plan of Treatment Not on filedocumented as of this encounter Visit Diagnoses Diagnosis Back pain - Primary Backache, unspecified documented in this encounter Care Teams Keg Raiser Relationship Specialty Start Date End Date Provider, Obtain PCP - General 04/15/13 09/03/13 documented as of this encounter
--- OUTSIDE RECORDS SUMMARY | 2022-06-20 02:28 | XMS_ITS | Encounter Summary ---
:1945 Author Organization [facility] Address [address] [address] Care Team Providers Name Role Phone Garry Neff MD Primary Care Provider Reason for Visit Reason Onset Date Comments Refill 01/08/2013 Encounter Details Date Type Department Care Team Description 01/08/2013 Refill Specialty Center 401 Zelalem Cohen, DO Refill Interventional Pain Management [address] [place] [address] [place] [address] [phone] Social History Tobacco Use Types Packs/Day Years Used Date Smoking Tobacco: Never Smokeless Tobacco: Never Alcohol Use Standard Drinks/Week Comments No 0 (1 standard drink = 0.6 oz pure alcoho l) Sex Assigned at Date Recorded Male 08/06/2021 5:59 PM CDT documented as of this encounter Nursing Notes Mi Osborne RN - 01/08/2013 2:22 PM CST Last Lyrica rx was 08/21/12. Patient is scheduled for revisit next week. Patient ok for refills per Dr. Cohen. Rx faxed to mail order pharmacy as requested. Left message informing patient. Mi Osborne RN 01/08/2013, 2:27 PM Celia Cross - 01/08/2013 9:48 AM CST Patient would now like medications to go to Mail order pharmacy through [facility], patient states that we need to send them the prescription for the Lyrica Please fax prescription to - [phone] Y PLANTER documented in this encounter Plan of Treatment Not on filedocumented as of this encounter Visit Diagnoses Diagnosis Back pain - Primary Backache, unspecified documented in this encounter Care Teams Terrazzo Layer Helper Relationship Specialty Start Date End Date Garry Neff MD PCP - General Neurosurgery 04/24/12 04/14/13 [facility] [address] documented as of this encounter
--- OUTSIDE RECORDS SUMMARY | 2022-06-20 02:28 | XMS_ITS | Encounter Summary ---
:1945 Author Organization [facility] Address [address], [place] [address] Care Team Providers Name Role Phone Garry Neff MD Primary Care Provider Encounter Details Date Type Department Care Team Description 08/27/2012 Orders Only External to [facility] Alana Nichols Social History Tobacco Use Types Packs/Day Years Used Date Smoking Tobacco: Never Smokeless Tobacco: Never Alcohol Use Standard Drinks/Week Comments No 0 (1 standard drink = 0.6 oz pure alcoho l) Sex Assigned at Date Recorded Male 08/06/2021 5:59 PM CDT documented as of this encounter Procedure Notes Haily Spencer Provider - 08/27/2012 12:00 AM CDTAssociated Order(s): FLEXIBLE SIGMOIDOSCOPY SC documented in this encounter Plan of Treatment Not on filedocumented as of this encounter Procedures Procedure Name Priority Date/Time Associated Comments Diagnosis FLEXIBLE SIGMOIDOSCOPY 08/27/2012 12:00 R esults for this SC AM CDT procedure are i n the results section. documented in this encounter Results FLEXIBLE SIGMOIDOSCOPY SC (08/27/2012 12:00 AM CDT) Specimen (Source) Anatomical Location Collection Method / Collectio n Time Received Time / Laterality Volume 08/27/2012 Narrative This result has an attachment that is no t available. Transcriptions Alana Nichols - 08/27/2012 1 2:00 AM CDT Provider Haily Spencer DUMMY/OTHER/AR documented in this encounter Visit Diagnoses Not on filedocumented in this encounter Care Teams Geological Aide Relationship Specialty Start Date End Date Garry Neff MD PCP - General Neurosurgery 04/24/12 04/14/13 [address] [place] [address] documented as of this encounter
--- OUTSIDE RECORDS SUMMARY | 2022-06-20 02:28 | XMS_ITS | Encounter Summary ---
:1945 Author Organization [facility] Address [address] [address] Care Team Providers Name Role Phone Garry Neff MD Primary Care Provider Reason for Visit Reason Onset Date Comments Medication Request 07/29/2012 Encounter Details Date Type Department Care Team Description 07/29/2012 Telephone Specialty Center [address] Cohen , Medication Request Interventional Pain DO Management [address] [place] [address] [phone] Social History Tobacco Use Types Packs/Day Years Used Date Smoking Tobacco: Never Smokeless Tobacco: Never Alcohol Use Standard Drinks/Week Comments No 0 (1 standard drink = 0.6 oz pure alcoho l) Sex Assigned at Date Recorded Male 08/06/2021 5:59 PM CDT documented as of this encounter Nursing Notes Mi Osborne RN - 07/29/2012 11:[address] cohen states that patient does take both baclofen and tizanidine. Meds were refilled at visit today. Mi Osborne RN 07/29/2012, 11:49 AM Mi Osborne RN - 07/29/2012 10:39 AM CDT Refill request for baclofen. Chart shows that patient may be taking tizanidine. Patient has appt with Dr. Cohen today. Please confirm which muscle relaxer patient is taking at appt today and refill. Mi Osborne, VALERIE 07/29/2012, 10:40 AM documented in this encounter Plan of Treatment Not on filedocumented as of this encounter Visit Diagnoses Diagnosis Back pain - Primary Backache, unspecified documented in this encounter Care Teams Computer Lab Assistant Relationship Specialty Start Date End Date Garry Neff MD PCP - General Neurosurgery 04/24/12 04/14/13 [address] [place] [address] documented as of this encounter
--- OUTSIDE RECORDS SUMMARY | 2022-06-20 02:28 | XMS_ITS | Encounter Summary ---
:1945 Author Organization [facility] [address], [place] [address] Care Team Providers Name Role Phone Franklin Squires MD Primary Care Provider Encounter Details Date Type Department Care Team Description 10/26/2013 Correspondence [facility] Trudi Raymundo, PT LETTER OF MEDICAL Physical Therapy [address] [place] [address] [phone] Social History Tobacco Use Types Packs/Day Years Used Date Smoking Tobacco: Never Smokeless Tobacco: Never Alcohol Use Standard Drinks/Week Comments No 0 (1 standard drink = 0.6 oz pure alcoho l) Sex Assigned at Date Recorded Male 08/06/2021 5:59 PM CDT documented as of this encounter Progress Notes Trudi Raymundo PT - 10/26/2013 12:00 AM CST BUFFER P[employer]IC documented in this encounter Plan of Treatment Not on filedocumented as of this encounter Visit Diagnoses Not on filedocumented in this encounter Care Teams Coffee Attendant Relationship Specialty Start Date End Date Franklin Squires MD PCP - General Family Practice 03/08/[address] [place] [address] [place] [address] documented as of this encounter
--- OUTSIDE RECORDS SUMMARY | 2022-06-20 02:28 | XMS_ITS | Encounter Summary ---
:1945 Author Organization [facility] Address [address] [address] Care Team Providers Name Role Phone Unassigned, Provider Primary Care Provider Unavailable Reason for Visit Reason Comments Refill Encounter Details Date Type Department Care Team Description 10/14/2013 Refill Specialty Center 401 Ana Cohen DO Refill Interventional Pain Management [address] [place] [address] [place] [address] [phone] Social History Tobacco Use Types Packs/Day Years Used Date Smoking Tobacco: Never Smokeless Tobacco: Never Alcohol Use Standard Drinks/Week Comments No 0 (1 standard drink = 0.6 oz pure alcoho l) Sex Assigned at Date Recorded Male 08/06/2021 5:59 PM CDT documented as of this encounter Nursing Notes Viktor Bo - 10/15/2013 4:59 PM CSTSigned Prescriptions: Disp Refills baclofen (AKA LIORESAL) 20 MG tablet 180 [id number]: TAKE 2 TABLETS BY MOUTH THREE TIMES A DAY.Authorizing Provider: ANA COHEN User: ROMELIA ROSE OOD LAYUP LINE CORE LAYER Romelia Rose - 10/15/2013 4:48 PM CST Refilled. OOD LAYUP LINE CORE LAYER Ana Cohen MD - 10/15/2013 4:03 PM CST Baclofen, no change one month [address] cohen OOD LAYUP LINE CORE LAYER Romelia Rose - 10/15/2013 3:40 PM CST Last Rx'd: 08/18/2013 baclofen (AKA LIORESAL) 20 MG tablet Qty: 180 Tab Refills: 0 Sig : Take 2 Tabs by mouth three times a day. Pain [...] 6-8 months Ana Cohen, 04/20/2013, 1:53 PM OOD LAYUP LINE CORE LAYER documented in this encounter Plan of Treatment Not on filedocumented as of this encounter Visit Diagnoses Not on filedocumented in this encounter Care Teams Attendant Coin Operated Laundry Relationship Specialty Start Date End Date Unassigned, Provider PCP - General Unknown Physician 09/04/13 12/15/[address] [place] [id number] documented as of this encounter
--- OUTSIDE RECORDS SUMMARY | 2022-06-20 02:28 | XMS_ITS | Encounter Summary ---
:1945 Author Organization [facility] Address [address], [place] [address] Care Team Providers Name Role Phone Garry Neff MD Primary Care Provider Reason for Visit Reason Onset Date Comments Medication Questions 01/21/2013 Encounter Details Date Type Department Care Team Description 01/21/2013 Telephone Specialty Center [address] Cohen edication Questions Interventional Pain L, DO Management [address] [place] [phone] Social History Tobacco Use Types Packs/Day Years Used Date Smoking Tobacco: Never Smokeless Tobacco: Never Alcohol Use Standard Drinks/Week Comments No 0 (1 standard drink = 0.6 oz pure alcoho l) Sex Assigned at Date Recorded Male 08/06/2021 5:59 PM CDT documented as of this encounter Nursing Notes Mi Osborne RN - 01/22/2013 2:28 PM CDT states that [facility] does not need any further information or changes with the medications listed below. appreciative of clinic's help. Mi Osborne RN 01/22/2013, 2:28 PM Mi Osborne RN - 01/22/2013 1:02 PM CDT Old refill requests received from [facility] for baclofen, tizanidine, and Cymbalta. Rxs were refill after the requests but not all for 90 day supplies. Will speak with patient and about thiswhen they call back. Mi Osborne, VALERIE 01/22/2013, 1:06 PM Mi Osborne, RN - 01/21/2013 4:[address] Cohen confirmed dose of baclofen to be 120mg/d and Cymbalta to be 80mg/d. Faxed confirmation of baclofen dose to [facility]. Left detailed message on phone number below regarding both medication doses. Left message for patient to call back. Mi Osborne RN 01/21/2013, 4:12 PM George Grande - 01/21/2013 11:06 AM CDT Pt's , Heather is calling because she has been trying to get pt's meds switched to [facility]. Heather states that there is a problem with pt's baclofen (AKA LIORESAL) 20 MG tablet because [facility] needs to confirm the dosage with the provider. Please advise. Number for the Pharmacist at [facility]: [phone] ext. [phone] Heather is requesting the provider confirm the dosage of both Cymbolta and Baclofen. Thanks, JBJ documented in this encounter Plan of Treatment Not on filedocumented as of this encounter Visit Diagnoses Not on filedocumented in this encounter Care Teams Board Of Education Secretary Relationship Specialty Start Date End Date Garry Neff MD PCP - General Neurosurgery 04/24/12 04/14/13 [place] [address] documented as of this encounter
--- OUTSIDE RECORDS SUMMARY | 2022-06-20 02:28 | XMS_ITS | Encounter Summary ---
:1945 Author Organization [facility] Address [address], [place] [address] Care Team Providers Name Role Phone Garry Neff MD Primary Care Provider Encounter Details Date Type Department Care Team Description 06/27/2012 Therapy [facility] Physical Trudi Raymundo, PT Therapy [address] [place] [address] [place] [address] [phone] Social History Tobacco Use Types Packs/Day Years Used Date Smoking Tobacco: Never Smokeless Tobacco: Never Alcohol Use Standard Drinks/Week Comments No 0 (1 standard drink = 0.6 oz pure alcoho l) Sex Assigned at Date Recorded Male 08/06/2021 5:59 PM CDT documented as of this encounter Progress Notes Trudi Raymundo, PT - 06/27/2012 10:40 AM CDT OUTPATIENT PHYSICAL THERAPY - DISCHARGE NOTE Carl Cullen [id number] 1945 Diagnosis: Paraplegia, osteoporosis, gait abnormality, back pain Payor: MEDICARE Plan: MEDICARE PART B ONLY Product Type: Medicare Physician: Dr. Randle Funding: Medicare / [facility] Vendor: [employer] ([employer] Onset Date: date of referral: 12/18/11 Number of visits: 1 PT visit on 01/17/2012 for a wheelchair evaluation. Pt received the equipment [facility] in April of 2012 which consisted of a new back for his chair Pt is now considered discharged from PT due to all goals met. Trudi Raymundo PT 06/27/2012 documented in this encounter Plan of Treatment Not on filedocumented as of this encounter Visit Diagnoses Not on filedocumented in this encounter Care Teams Automotive Exhaust Emissions Technician Relationship Specialty Start Date End Date Garry Neff MD PCP - General Neurosurgery 04/24/12 04/14/13 [address] [place] [address] documented as of this encounter
--- OUTSIDE RECORDS SUMMARY | 2022-06-20 02:28 | XMS_ITS | Encounter Summary ---
:1945 Author Organization [facility] [address] [address] Care Team Providers Name Role Phone Unassigned, Provider Primary Care Provider Unavailable Encounter Details Date Type Department Care Team Description 10/21/2013 Office Visit [facility] May Randle MD [address] [place] [address] Paraplegia (Primary Dx); Physical Therapy Trudi Raymundo, PT [address] [place] [address] Osteoporosis [address] [place] [address] Social History Tobacco Use Types Packs/Day Years Used Date Smoking Tobacco: Never Smokeless Tobacco: Never Alcohol Use Standard Drinks/Week Comments No 0 (1 standard drink = 0.6 oz pure alcoho l) Sex Assigned at Date Recorded Male 08/06/2021 5:59 PM CDT documented as of this encounter Progress Notes Trudi Raymundo, PT - 10/21/2013 10:24 AM CST OUTPATIENT PHYSICAL THERAPY: SEATING/MOBILITY EVALUATION Jeff Cullen [id number] 1945 Payor: MEDICARE Plan: MEDICARE [id number] Product Type: Medicare Referring Provider: May Randle provider: Maryjo Erwin) Diagnosis: Paraplegia (344.1), Osteoporosis (733.00) Date of Onset/Date of Surgery: Date of referral 09/07/13 Certification Period: 10/21/2013 - 01/18/14 Start of Therapy: 10/21/2013 Medicare units used: including 10/21/2013 G-codes and Severity modifiers: [id number], Mobility current [...] clinical judgement SUBJECTIVE: MEDICAL HISTORY: History/Progression: As per H and P from 09/07/13: He has a history of thoracic ependymoma for a number of years and initially had his rehabilitation at [facility]. At that point he was [...] shoulder pain andn his left ulnar bursitis He has been [...] suprapubic catheterthat requires management by medical professionsals. Recent/Planned Surgeries: colostomy placed in 10/06/12. Suprapubic catheter placed recently as well (unsure of date) Cardio-Respiratory Status: intact CURRENT SEATING/MOBILITY: (Type - Dental Ceramist Helper-Model) Chair: Hoveround, age: 2006 w/c Cushion: Van [...] lift. 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 OBJECTIVE: Estimated body mass index is 37.18 kg/(m^2) as calculated from the following: Height as of 04/15/13: 5' 9 (1.753 m). Weight as of 03/11/12: 251 lb 14.4 oz (114.261 kg). Passive ROM: Bilateral shoulder ROM to [...] trochanter pressure sore. Current pressure sores: no COGNITIVE / VISUAL STATUS: Memory Skills: intact [...] to assist more with onset of fatigue. w/c to commode transfer: N/A Ambulation: unable [...] spent sitting in w/c each day: time study technologist wheelchair user. PATIENTS GOALS: Seeking power wheelchair [...] in stabilizing his medical condition. Measurements taken. CLINICAL CRITERIA / ALGORITHM SUMMARY: 1. Is [...] use therecommended equipment? yes. Response to treatment: good ASSESSMENT: The following power wheelchair is recommended for Jeff Chowdhury for increased independencewith mobility and increased independence with MRADLs like transferring, pressure relief, management of his bowel and bladder, management of his osteoporosis (fracture prevention). He is a time study technologist wheelchair user and is not ambulatory. He has had a history of pressure sores and has severe osteoporosis. He also recently had a colostomy placed and a suprapubic catheter placed. -Permobile with power stand, power recline, power tilt, power elevation SHORT TERM GOALS: (within 1 session) 1. [...] He may required another Face toface- MET ALF GOALS (to be met within 3 months) [...] the future but will occur prior to 11/10/13. Total treatment time: 60 minutes: 1 unit [...] prompt action with this matter. Sincerely, Trudi Raymundo PT, License # [id number] 10/21/2013 Please sign below and fax this report, with your signature, to our clinic at [phone]. Your signature is required to continue treatment of the above patient per Medicare / Medical Assistance regulations. I certify the need for the above services furnished under this treatment plan while under my care. _ Physician's Signature 10/21/2013 IC SEPARATOR OPERATOR Trudi Raymundo PT - 10/21/2013 12:00 AM CST IC SEPARATOR OPERATOR documented in this encounter Plan of Treatment Not on filedocumented as of this encounter Visit Diagnoses Diagnosis Paraplegia (HRC) - Primary Paraplegia Osteoporosis (HRC) Osteoporosis, unspecified documented in this encounter Care Teams Carpenter Repair Relationship Specialty Start Date End Date Unassigned, Provider PCP - General Unknown Physician 09/04/13 12/15/[address] [place] [id number] documented as of this encounter
--- OUTSIDE RECORDS SUMMARY | 2022-06-20 02:28 | XMS_ITS | Encounter Summary ---
:1945 Author Organization [facility] Address [address] [address] Care Team Providers Name Role Phone Unassigned, Provider Primary Care Provider Unavailable Reason for Referral Consult/Transfer Care (Routine) - Closed Specialty Diagnoses / Procedures Referred By Contact Refer red To Contact Diagnoses Paraplegia (HRC) May Randle MD [address] [place] [address] Referral ID Status Reason Start Date Expiration Date Visits Requ ested Visits Authorized [id number] Closed 09/07/2013 1 1 Scheduling Instructions Your provider has recommended an appoint ment with a [facility] Physical Therapist. Please stop at the clinic check out desk for assistance with scheduling or please choose from one of the convenient locati ons to call and schedule your PT appointment: [facility] Outpatient PT at [facility] [phone], [facility] Outpatient PT at [address] [phone], [facility] Outpat ient PT at [facility] [phone]. Reason for Visit Reason Comments Revisit Paraplegia last visit 03/11/12 Encounter Details Date Type Department Care Team Description 09/07/2013 Office Visit Specialty Center May Randle Para plegia (Primary Dx); [address] Physical Kirsten Clemente MD Right shoulder pain; [address] Olecranon bursitis of left elbow; [place] [address] [place], [place] Neurogenic bowel; [phone] [id number] Neurogenic bladder; [phone] Spasticity; (Work) DVT (deep venous thrombosis); Back pain Social History Tobacco Use Types Packs/Day Years Used Date Smoking Tobacco: Never Smokeless Tobacco: Never Alcohol Use Standard Drinks/Week Comments No 0 (1 standard drink = 0.6 oz pure alcoho l) Sex Assigned at Date Recorded Male 08/06/2021 5:59 PM CDT documented as of this encounter Last Filed Vital Signs Vital Sign Reading Time Taken Comments Blood Pressure 123/72 09/07/2013 1:16 PM CDT Pulse 83 09/07/2013 1:16 PM CDT Temperature - - Respiratory Rate - - Oxygen Saturation - - Inhaled Oxygen Concentration - - Weight - - Height - - Body Mass Index - - documented in this encounter Patient Instructions Patient InstructionsMay Randle MD - 09/07/2013 1:53 PM CDT Reason for today's visit: need for new chair Your diagnosis: paraplegia Tests that you will need: be sure your liver functions are checked periodically Treatment plan: physical therapy evaluation for new chair Follow up: as needed If tests are needed, you will receive [...] treatment plan is please contact us at [phone] or send us a secure message via [email or web address]. If you need follow-up in the future, please call [phone] for an appointment. If you cannot get a time that satisfies you, please let us know what times work for you and we will do our best to accommodate you. Thank you for choosing May Randle MD and [facility]. documented in this encounter Progress Notes May Randle MD - 09/07/2013 4:50 PM CDT is accompanied to clinic today by his . He seen in particular because of concerns about obtaining a new power wheelchair. He is also seen in followup of issues including spasticity, backpain, neurogenic bowel and wheelchair positioning. He was last seen in this clinic in March of 2012. He presently has a Hoverround wheelchair which he obtained in 2007. He also has a manual chair whichdoes not fit him well. He has ongoing difficulty with back pain and benefits from the ability to change his position which neither of these chairs allows. He also has difficulty with spasticity and would benefit from a chair which would allow him to stand and provide prolonged stretch to his lower extremities. This would also help with his back pain. He reports today that he is interested in obtaining a per mobile C500. He has discussed this with [facility] seating and mobility. We have discussed today the fact that we would need to have him evaluated by physical therapy regarding a letter of justific ation for this chair. He does state that the chair would be used in his home as it would allow him much better positioning than anything he has now. He reports in the evening he is normally in bed because he is not comfortable in either of these chairs. He has tried this chair and finds it to be a better fit for him He has a history of thoracic ependymoma [...] not end up with any good customized seating.. over the past couple years he has n been having more difficulty with back pain has been seen in the emergency room and given Ativan and morphine. He subsequently returned and was given Vicodin. Pain is described as in the left leg and low back.. He continued to have times when at feels as though his back cramps up. He was taught some exercises for this. [...] 40 mg 3 times a day . We had tried him on Dantrium which he subsequently weaned off of. Dr. Cohen now has him taking when necessary tizanadine. He states his liver function tests are followed athis primary clinic. They are not using the orphenadrine I did refer him back to again reevaluate his seating and had given him a copy of that physical therapy evaluation today. It is noted that on pressure mapping he did have increased pressure over the left ischial tuberosity and that he did better with a different type of cushion. He notes he tried this cushion and initially found it helpful but then did not feel that it was worth getting. He had ongoing difficulty with bowel program and ultimately had a colostomy which they feel has considerably improved their quality of life. He has an indwelling De La Cruz catheter but is scheduled for a suprapubic catheter in the near future They feel spasticity has generally been well managed He had been seeing Dr. George Bright because of right shoulder pain. He had a recent MRI which showed some calcification in the tendon. He completed physical therapy for this. Most recently he hashaddifficulty with left elbow bursitis and is seen in therapy and has had injections . Previous review has revealed [...] health aide assistance if in the home. They periodically seek out physical therapy for specific needs. Brooke helps him in the shower. He has a roll in shower and a bench that he transfers to. Transfers are accomplished via sliding board although a time she notes this can be difficult particularly if he is having difficulty with his shoulder or elbow-we have discussed Kisha lift if needed His primary care physician is Dr. Loretta GOSS at [facility] in [facility]. He continues to follow with Dr. Neff in neurosurgery regarding the thoracic tumor Past Medical History Diagnosis Date ??? Ependymoma 1999 S/p resection by Dr. Glasgow at [facility] in 05/2000. However resection was incomplete due [...] extremities. Current Outpatient Prescriptions Medication Sig ??? alendronate (AKA FOSAMAX) 70 MG tablet [...] Take 2 Tabs by mouth daily. ??? duloxetine (AKA CYMBALTA) 20 MG capsule Take 4 Caps by mouth daily. ??? Generic Medication (COMPOUNDED CREAM) Ketamine 10%, boclofen 2%, gabapentin 6%, verapamil 6%. Apply to low back TID prn ??? LORazepam (AKA ATIVAN) 0.5 MG tablet Take 2 Tabs by mouth three times a day. ??? orphenadrine 100 MG tablet Take 1 Tab by mouth two times a day as needed for Muscle Spasms or Pain. ??? polyethylene glycol (AKA MIRALAX) packet Take 17 g by mouth daily. ??? pregabalin (LYRICA) 50 MG capsule Take 2 Caps by mouth three times a day. ??? TESTOSTERONE TD Patch ??? tiZANidine (AKA ZANAFLEX) 4 MG capsule Take 1 Cap by mouth three times a day as needed for Muscle Spasms. ??? TRIMETHOPRIM OR Take 100 mg by mouth daily. ??? warfarin (COUMADIN) 5 MG tablet Take 5 mg by mouth daily. 7.5 mg Saturday- , 10 mg Saturday Based on INR Allergies Allergen Reactions ??? Zaroxolyn (Sulfa Drugs) [...] 1 at baseline. Lives with his in [place]. Family History Problem Relation Age of Onset [...] He is alert and oriented x4.Affect is flat with intermittent eye contact. He has good upper extremity range of motion and strength on the left and minimal limitation of right shoulder flexion on the right. He had a previous biceps injury on this side He has a sensory demarcation above the nipple level and does not have sensationbelow this. Skin is intact where observed. He does have some lower extremity edema 1+ Tone is minimally increased in the lower extremities Rebeca 1+. There is no clonus. Deep tendon reflexes are brisk. He is sitting in a Hoveround chair today. 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 He remains on baclofen. He is weaned off of Dantrium. He is on when necessary tizanadine per Dr. Cohen -have discussed the fact that he needs regular liver function tests 2) referral to physical therapy for evaluation regarding a power wheelchair 3) continue home exercise program 4) continue stander, Carole, at home as able 5) followup with Dr. Cohen 6) complete outpatient therapy for left ulnar bursitis 7) he will be seen back on an as-needed basis 30/40 of today's minutes spent in education, counseling, and coordination of care. May Randle MD documented in this encounter Plan of Treatment Scheduled Referrals Name Type Priority Associated Diagnoses Order S [facility] PHYSICAL THERAPY Referral Routine Paraplegia Ordered: documented as of this encounter Visit Diagnoses Diagnosis Paraplegia (HRC) - Primary Paraplegia Right shoulder pain Pain in joint, shoulder region Olecranon bursitis of left elbow Olecranon bursitis Neurogenic bowel Neurogenic bladder Neurogenic bladder, NOS Spasticity Abnormal involuntary movements DVT (deep venous thrombosis) (HRC) Acute venous embolism and thrombosis of unspecified deep vessels of lower extremity Back pain Backache, unspecified documented in this encounter Care Teams Natural Developer Relationship Specialty Start Date End Date Unassigned, Provider PCP - General Unknown Physician 09/04/[address] [place] [id number] documented as of this encounter
--- OUTSIDE RECORDS SUMMARY | 2022-06-20 02:28 | XMS_ITS | Encounter Summary ---
:1945 Author [facility] Address [address] [place] [id number] Care Team Providers Name Role Phone Garry Neff MD Primary Care Provider Reason for Visit Reason Comments Revisit back pain Encounter Details Date Type Department Care Team Description 01/15/2013 Office Visit Specialty Center [address] Zelal[address] Cohen nal pain (Primary Dx); Interventional Pain L, DO Back pain Management [address] [place] [phone] Social History Tobacco Use Types Packs/Day Years Used Date Smoking Tobacco: Never Smokeless Tobacco: Never Alcohol Use Standard Drinks/Week Comments No 0 (1 standard drink = 0.6 oz pure alcoho l) Sex Assigned at Date Recorded Male 08/06/2021 5:59 PM CDT documented as of this encounter Last Filed Vital Signs Vital Sign Reading Time Taken Comments Blood Pressure 126/78 01/15/2013 11:12 AM CLIENT SUCCESS SPECIALIST Pulse 85 01/15/2013 11:12 AM CLIENT SUCCESS SPECIALIST Temperature - - Respiratory Rate - - Oxygen Saturation - - Inhaled Oxygen Concentration - - Weight - - Height - - Body Mass Index - - documented in this encounter Progress Notes Zelalem Cohen MD - 01/15/2013 12:58 PM CST Pain clinic follow up visit: Subjective: c/o low back pain, rectal pain. Now with colostomy. On tizanidine, lyrica, baclofen, cymbalta Objective: Filed Vitals: 01/15/13 1112 BP: 126/78 Pulse: 85 Gen: nad, a/o In w/c present Assessment: 1. SCI, tumor removed 2. Back pain 3. Paraplegia 4. Rectal pain Plan of Care: 1. Called GI/colorectal surgery to discuss, Dr. Stokes 2. Continue lyrica at 100mg tid 3. Continue tizanidine 4. Continue baclofen 5. Change cymbalta to 80mg per day x 1 6. Rectal morphine 5mg 4x per day as needed Zelalem Cohen, 01/15/2013, 12:58 PM NT SUCCESS SPECIALIST documented in this encounter Plan of Treatment Not on filedocumented as of this encounter Visit Diagnoses Diagnosis Anal pain - Primary Anal or rectal pain Back pain Backache, unspecified documented in this encounter Care Teams Pulpwood Dealer Relationship Specialty Start Date End Date Garry Neff MD PCP - General Neurosurgery 04/24/12 04/14/13 [address] [place] [address] documented as of this encounter
--- OUTSIDE RECORDS SUMMARY | 2022-06-20 02:29 | XMS_ITS | Encounter Summary ---
:1945 Author Organization [facility] Address [address] [place] [address] Care Team Providers Name Role Phone Garry Neff MD Primary Care Provider Reason for Visit Reason Comments Revisit Neuropathic pain syndrome Encounter Details Date Type Department Care Team Description 05/27/2012 Office Visit Specialty Center 401 Zelal[address] Cohen acdave pain (Primary Interventional Pain L, DO Dx) Management [address] [place] [phone] Social History Tobacco Use Types Packs/Day Years Used Date Smoking Tobacco: Never Smokeless Tobacco: Never Alcohol Use Standard Drinks/Week Comments No 0 (1 standard drink = 0.6 oz pure alcoho l) Sex Assigned at Date Recorded Male 08/06/2021 5:59 PM CDT documented as of this encounter Last Filed Vital Signs Vital Sign Reading Time Taken Comments Blood Pressure 100/56 05/27/2012 11:13 AM CDT Pulse 94 05/27/2012 11:13 AM CDT Temperature - - Respiratory Rate - - Oxygen Saturation - - Inhaled Oxygen Concentration - - Weight - - Height - - Body Mass Index - - documented in this encounter Patient Instructions Patient InstructionsScheZlalem tierney MD - 05/27/2012 12:01 PM CDT 1. Continue the baclofen with no change 2. Change the lyrica to two tabs (100mg) twice per day Eliminating the middle day dose 3. Stop the tizanidine, at most take 2mg at night as needed 4. Change the cymbalta to 80mg per day, once per day documented in this encounter Progress Notes Fernanda Osborne RN - 05/27/2012 12:58 PM CDT Addended by: FERNANDA OSBORNE on: 05/27/2012 12:58 PM Modules accepted: Orders Zelalem Cohen MD - 05/27/2012 12:13 PM CDT Pain clinic follow up visit: Subjective: continues to have low back pain/ mm spasms. C/o hypotension, blurry vision, wt gain, grogginess. Taking lyrica 100mg tid, baclofen 40mg tid, tizanidine prn with SE of drowsiness, cymbalta 60mg per day. Overall mood down. No topicals on back. Hx of lidoderm in the past. Objective: Filed Vitals: 05/27/12 1113 BP: 100/56 Pulse: 94 Gen: teary eyed, present Msk: in w/c No sensation to light touch on back lumbar spine Assessment: 1. SCI 2. Back pain 3. Neuropathic pain Plan of Care: 1. Change tizanidine to 2mg qhs prn, eliminate daily dose 2. Change lyrica to 100mg bid, eliminate midday dose 3. Increase cymbalta to 80mg qday 4. Topical compounded cream for back ketamine, baclofen, marcaine, flexeril, neurontin, diclofenac 5. F/u in fall Zelalem Cohen, 05/27/2012, 12:16 PM documented in this encounter Plan of Treatment Not on filedocumented as of this encounter Visit Diagnoses Diagnosis Back pain - Primary Backache, unspecified documented in this encounter Care Teams Parole Or Probation Officer Relationship Specialty Start Date End Date Garry Neff MD PCP - General Neurosurgery 04/24/12 04/14/[address] [place], [place] [address] [address] documented as of this encounter
--- OUTSIDE RECORDS SUMMARY | 2022-06-20 02:29 | XMS_ITS | Encounter Summary ---
:1945 Author Organization [facility] Address [address] [address] Care Team Providers Name Role Phone Unavailable Primary Care Provider Unavailable Encounter Details Date Type Department Care Team Description 11/29/2011 Therapy External to Physical Therapy, Provider Social History Tobacco Use Types Packs/Day Years Used Date Smoking Tobacco: Never Smokeless Tobacco: Never Alcohol Use Standard Drinks/Week Comments No 0 (1 standard drink = 0.6 oz pure alcoho l) Sex Assigned at Date Recorded Male 08/06/2021 5:59 PM CDT documented as of this encounter Progress Notes Interface, In Chrtscr And Scan - 12/18/2011 12:54 PM LIVESTOCK SALES REPRESENTATIVE STOCK SALES REPRESENTATIVE documented in this encounter Plan of Treatment Not on filedocumented as of this encounter Visit Diagnoses Not on filedocumented in this encounter
--- OUTSIDE RECORDS SUMMARY | 2022-06-20 02:29 | XMS_ITS | Encounter Summary ---
:1945 Author Organization [facility] Address [address], [place] [address] Care Team Providers Name Role Phone Provider, Not On File Primary Care Provider Unavailable Reason for Visit Reason Onset Date Comments Medication Request 04/21/2012 Encounter Details Date Type Department Care Team Description 04/21/2012 Telephone Specialty Center 401 Garry Neff, Medication Request NeuroSurgery [address] [place] [address] [place] [address] [phone] (Wo rk) Social History Tobacco Use Types Packs/Day Years Used Date Smoking Tobacco: Never Smokeless Tobacco: Never Alcohol Use Standard Drinks/Week Comments No 0 (1 standard drink = 0.6 oz pure alcoho l) Sex Assigned at Date Recorded Male 08/06/2021 5:59 PM CDT documented as of this encounter Nursing Notes Corrie Merino, RN - 04/21/2012 3:16 PM CDT Called and spoke with patient's . Let her know prescription for valium will be sent to pharmacy of choice. The patient's indicates understanding of these issues and agrees with the plan. Corrie Celaya RN 04/21/2012, 3:17 PM Arline Reese - 04/21/2012 1:42 PM CDT Pt's is calling to get her a couple of valium for the MRI he is having on 04/24. Please send to there pharmacy. Please call pt with information. Thanks. Arline Reese 04/21/2012, 1:43 PM documented in this encounter Plan of Treatment Not on filedocumented as of this encounter Visit Diagnoses Not on filedocumented in this encounter Care Teams Meat Cutter Apprentice Relationship Specialty Start Date End Date Provider, Not On File PCP - General 03/03/12 04/23/12 [address] [place] [address] documented as of this encounter
--- OUTSIDE RECORDS SUMMARY | 2022-06-20 02:29 | XMS_ITS | Encounter Summary ---
:1945 Author Organization [facility] [address] [address] Care Team Providers Name Role Phone Unavailable Primary Care Provider Unavailable Reason for Visit Consult/Transfer Care - Closed Specialty Diagnoses / Procedures Referred By Contact Refer red To Contact May Randle MD [address] [place] [address] Referral ID Status Reason Start Date Expiration Date Visits Requ ested Visits Authorized [id number] Closed 12/17/2011 1 1 Encounter Details Date Type Department Care Team Description 01/17/2012 Office Visit [facility] May Randle MD [address] [place], [place] [phone] Paraplegia; Physical Therapy Trudi Raymundo, PT [address] [place], [place] [phone] Osteoporosis; [address] Gait abnormality; [place] [address] Back pain [phone] Social History Tobacco Use Types Packs/Day Years Used Date Smoking Tobacco: Never Smokeless Tobacco: Never Alcohol Use Standard Drinks/Week Comments No 0 (1 standard drink = 0.6 oz pure alcoho l) Sex Assigned at Date Recorded Male 08/06/2021 5:59 PM CDT documented as of this encounter Progress Notes Trudi Raymundo PT - 01/25/2012 6:40 PM CDT Trudi Raymundo PT - 01/17/2012 1:15 PM CST PHYSICAL THERAPY SEATING/MOBILITY EVALUATION Carl Cullen [address] [facility] [phone] 1945 Estimated Body mass index is 35.06 kg/(m^2) as calculated from the following: Height as of 12/17/11: 5' 9(1.753 m). Weight as of 12/17/11: 237 lb 6.4 oz(107.684 kg). 01/17/2012 May Randle MD [address] [place] [id number] Diagnosis: Paraplegia, osteoporosis, gait abnormality, back pain Payor: MEDICARE Plan: MEDICARE PART B ONLY Product Type: Medicare Physician: Dr. 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 He has had increasing back and left hip and leg pain over the past several months requiring a trip to the ED and change in medications. He has been referred to a pain specialist by his neurosurgeon as well. His current wheelchair has not been comfortable. He is in a semi adjustable back that can allow for increased lumbar support but it is minimally adjustable. In March of 2011 was hospitalized for bilateral femoral condyle fractures which were surgically repaired. He has since developed more back pain. Past Medical History Diagnosis Date ??? 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 Glasgow at [facility] in 05/2000. However resection was incomplete due to encasement of nerves. XRT was planned but ependymoma quickly regrew & he underwent re-resection in 07/2000. 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 He again underwent resection, this time followed by radiation therapy. This controlled the tumorf ??? DVT (deep venous thrombosis) 2000 s/p IVC filter placed in 1999, also on coumadin since 1999. had non occlusive DVT of bilat LEs on dopplers 04/2010 ??? 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 HTN (hypertension) ??? Dyslipidemia ??? CAREPLAN: BACLOFEN 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 ??? 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 Leg fracture, left nontraumatic ??? Hypercholesteremia ??? Chronic constipation ??? Depression Past Surgical History Procedure Date ??? Appendectomy ??? Vasectomy* ??? Turp incl contrl postop bleed cmpl ??? Total knee replacement (35146) right ??? Ivc filter placement 1999 Patient Active Problem List Diagnoses Code ??? 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 Fever 780.60BQ ??? Probable Bacterial Meningitis 320.9D ??? DVT (Deep Venous Thrombosis) 453.40U ??? Neurogenic Bladder 596.54AL ??? HTN (Hypertension) 401.9AE ??? CAREPLAN: BACLOFEN [address]6525 ??? Osteoporosis 733.00C ??? Paraplegia 344.1 ??? Hyperparathyroidism 252.00A ??? Vitamin D deficiency 268.9G Recent/Planned Surgeries: bilateral femoral Condyle IM nailings in March of 2011. Cardio-Respiratory Status: intact CURRENT SEATING/MOBILITY: (Type - Membership Coordinator-Model) Chair: [address] W/C, age: 4 1/2 years old w/c Cushion: Van seat, age: same as chair w/c Back: Van back, age: same as chair Also has a Gamersband 600 purchased privately in June of 2011. Has an [employer]ely[employer] cushion and a Comfort InEnTec Radius back, both purchased privately. Pressure mapping at 150 mg/Hg shows more loading through the left IT, slightly improved with adjustment of the back. HOME ENVIRONMENT: Patient lives with spouse/significant other in a house. Entrance: ramp. W/C Accessible Rooms: Yes Uses manual chair for the most part in the home as it is easier to negotiate to the bathroom, etc...Uses power chair for going out and about in community, for driving and for being in the yard. He doesn't spend a lot of time in his power chair due to comfort reasons. He spends more time in his manual wheelchair He does report shoulder pain with self propelling at times and does have trouble propelling on his carpet at home. Has seen an orthopedist for his left shoulder and is going to PT working on his shoulder and his trunk balance. COMMUNITY ADL: Transportation: vehicle adapted for wheelchair to lock in for driving. 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 OBJECTIVE: ROM: Shoulder ROM is limited due to forward shoulders. He is kyphotic which contributes to poor shoulder mechanics. He has approx. 95 degrees active flexion of his shoulders. Extension is limited due to forward shoulders and poor mechanics but he is able to reach wheel rims to propel his manual chair.He does report some shoulder pain. LE ROM is as follows: hip flexion to 100 degrees bilaterally. Ankle dorsiflexion to neutral. Knee extension limitation of 30 degrees bilaterally. STRENGTH: UE strength is WNL but does have pain with resistance testing to external rotation of shoulders. Has no LE motor function remaining and lacks trunk control consistent with paraplegia affecting T3 and lower. Lacks trunk and LE sensation. Lacks trunk control due to level of involvement of his spinal cord tumor. ALIGNMENT: Pelvic: Iliac crests height : Level Pelvic Obliquity: none noted in his current manual chair Scoliosis: none although tends to lean to left slightly at times. Kyphosis: yes. Edema: has LE edema, wears LUIS hose for this. Edema worse on right side. Tries to elevate feet in recliner in evening but has difficulty with transfers and spends most of his time up in his w/c. He notes that he doesn't take his lasix consistently for edema control. Skin integrity: He has had no recent areas of skin pressure. Following hospitalization in 2009 he did have the beginning of a pressure area that never opened and healed. Was having some pressure along thighs in his Gamersband 600 manual wheelchair that was 18 inches wide but now is in a 20 inch wide chair which has alleviated this. MUSCLE TONE: LE flaccid with occasional increased spasticity in his LE's. SENSATION: consistent with T3 complete paraplegia History of Pressure sores: yes Current pressure sores: no COGNITIVE / VISUAL STATUS: Memory Skills: intact Problem Solving: intact Judgment: intact Attn/Concentration: intact Vision: intact Hearing: intact Other: completes regular skin checks ADL STATUS: Dressing: currently requiring assistance for LE dressing but is able to dress upper body independently. Does so sitting in his wheelchair for added trunk support. Bathing: assist Bowel management: is on a bowel program Bladder management: indwelling catheter MOBILITY SKILLS: Bed to w/c transfer: assist, sliding board, moderate assist of 1 when therapist assisted. Requires assist for trunk balance. Ambulation: unable Manual w/c propulsion: slow propulsion, right shoulder pain. Reports difficulty on carpet at home and with going over thresholds. Able to perform weight shifts: unable to perform adequately for sufficient time for pressure relief (only for about 30 seconds or so) Lacks trunk control to lean forward orto the side without using UE to support. Hours spent sitting in w/c each day: 12 + hours PATIENT'S GOALS: seeking new seating system for his current manual wheelchair. CLINICAL CRITERIA / ALGORITHM SUMMARY: 1. Is there a mobility limitation causing an inability to safely participate in one or more MobilityRelated Activities of Daily Living in a reasonable time frame: yes. 2. Are there cognitive or sensory deficits (awareness/judgement/vision/etc) that limit the users ability to safely participate in one or more MRADL's? yes. If yes, can they be accommodated/compensated for to allow use of a mobility assistive device to participate in MRADL's? yes. 3. Does the user demonstrate the ability or potential ability and willingness to safely use the mobility assistive device? yes. 4. Can the mobility deficit be sufficiently resolved with only the use of a cane or walker? no. 5. Does the user's environment support the use of a manual wheelchair? yes. 6. If a manual wheelchair is recommended, does the user have sufficient function/abilities to use the recommended equipment? yes. 7. If a POV is recommended, does the user have sufficient stability and upper extremity function to operate it? no. 8. If a power wheelchair is recommended, does the user have sufficient function/abilities to use therecommended equipment? NA. TODAY'S TREATMENT: Initial evaluation followed by wheelchair assessment fitting and training x 20 minutes. NM re ed: biofeedback used with pressure mapping with weight shifts and in various cushions x 30 minutes. Pressure mapped with current back and cushion as well as an 18 x 18 Flovair Max cushion. NOTE: patient appeared to map better on the Flovair cushion versus the current Evolution cushion andthe Flovair seems to give more positioning capabilities. Additionally, when the back was tightened to give more lumbar support the pressure mapping improved. ONgoing slightly more pressure through leftIT. No significant increase in pressure with self propulsion of manual wheelchair. RECOMMENDATION / GOALS: Seating, recommending a new cushion that offers more positioning capabilities along with pressure relief. Goals: to be met within 2 months 1. Patient to trial various solid backs and various cushions for better positioning. 2. Patient will be independent with recommended seating to allow less pain with completion of MRADL's in the home. I, the undersigned, certify that the above prescribed, durable, medical equipment, is medically necessary as part of my treatment for Carl Cullen. In my opinion, the equipment prescribed is reasonable and necessary according to the accepted standards of medical practice and treatment for parapl egia, osteoporosis and back pain and has not been prescribed as convenience equipment. If you require further information or clarification, please do not hesitate to contact this therapist at . Thank you for your prompt action with this matter. Sincerely, Trudi Raymundo, PT License Number: [id number] [employer]S PROFESSION[employer] documented in this encounter Plan of Treatment Scheduled Referrals Name Type Priority Associated Diagnoses Order [facility] PHYSICAL THERAPY Referral Routine Ordered: documented as of this encounter Visit Diagnoses Diagnosis Paraplegia (HRC) Paraplegia Osteoporosis ([facility]C) Osteoporosis, unspecified Gait abnormality Abnormality of gait Back pain Backache, unspecified documented in this encounter
--- OUTSIDE RECORDS SUMMARY | 2022-06-20 02:29 | XMS_ITS | Encounter Summary ---
:1945 [facility] Organization [facility] Address [address] [address] Care Team Providers Name Role Phone Unavailable Primary Care Provider Unavailable Reason for Referral Consult/Transfer Care - Closed Specialty Diagnoses / Procedures Referred By Contact Refer red To Contact George Bright DO [address] [place] [address] Referral ID Status Reason Start Date Expiration Date Visits Requ ested Visits Authorized [id number] Closed 12/13/2011 1 1 Scheduling Instructions Your provider has recommended an appoint ment with a Critical access hospital Physical Therapist. Please stop at the clinic angel ck out desk for assistance with scheduling or please choose one of the convenient loca tions to call and schedule your PT appointment: [facility] Outpatient PT at [facility] [phone], [facility] Outpatient PT at the [facility] [phone], [facility] Outpatient PT in the [facility] [phone]. OR ACCOUNTING ASSOCIATE Reason for Visit Reason Comments Follow-up, NOS RT shoulder Encounter Details Date Type Department Care Team Description 12/13/2011 Office Visit Specialty Center George Bright C alcifying tendinitis of shoulder (Primary Dx); [facility] Orthopedics DO Impingement syndrome, shoulder Clinic [address] [place] [address] [place] [address] [phone] (Wo rk) Social History Tobacco Use Types Packs/Day Years Used Date Smoking Tobacco: Never Smokeless Tobacco: Never Alcohol Use Standard Drinks/Week Comments No 0 (1 standard drink = 0.6 oz pure alcoho l) Sex Assigned at Date Recorded Male 08/06/2021 5:59 PM CDT documented as of this encounter Last Filed Vital Signs Vital Sign Reading Time Taken Comments Blood Pressure - - Pulse - - Temperature - - Respiratory Rate - - Oxygen Saturation - - Inhaled Oxygen Concentration - - Weight 104.3 kg (230 lb) 12/13/2011 1:01 PM SENIOR ACCOUNTING ASSOCIATE Height 177.8 cm (5' 10) 12/13/2011 1:01 PM SENIOR ACCOUNTING ASSOCIATE Body Mass Index 33 12/13/2011 1:01 PM SENIOR ACCOUNTING ASSOCIATE documented in this encounter Patient Instructions Patient InstructionsCourtney Taylor LPN - 12/13/2011 1:51 PM CST 1. Ice and heat 2. Continue physical therapy- new order completed today 3. Follow up in 6-8 weeks Please stop at the check out desk to schedule a follow up appointment. Use this grid to write down your next appointment. DATE & TIME PROVIDER LOCATION ( ) [facility]: [address] [place] [address] ( ) [address] ( ) Other: ( ) [facility]: [address] [place] [address] ( ) [address] ( ) Other: If you received a prescription at your visit today and later feel you need a refill on that medication, please contact your pharmacy. If the pharmacy is not able to give you a refill, they will send your request to our clinic for you. OR ACCOUNTING ASSOCIATE documented in this encounter Progress Notes George Bright - 12/13/2011 1:01 PM CST ORTHOPAEDIC CLINIC NOTE DATE OF SERVICE: 12/13/2011 CHIEF COMPLAINT: Follow-up right shoulder SUBJECTIVE: The patient presents today for reevaluation of the right shoulder and MRI review. He is using Vicodin for pain medication. Since his last visit, there is been no change in his symptoms. He has no new complaints today. His primary complaint is reaching away from his body. PHYSICAL EXAM: He is alert and oriented x3 and in no acute distress. Breathing is unlabored. RIGHT SHOULDER: Skin is normal. Radial pulse is palpable. Sensation to light touch is intact throughout all distal dermatomes. Motor function is intact distally. He has a range of motion from 150 degrees of for lira flexion, 135 degrees of abduction, 70 degrees of external rotation at 90 degrees of abduction and internal rotation to iliac crest. Neer and Mccray impingement signs are positive. Rotator cuff muscle strength is 4/5. He is not tender along the acromioclavicular joint. He is tender along the greater tuberosity. IMAGING: An MRI of the right shoulder dated 12/10/2011 from [facility] is reviewed today on CD-ROM. This shows increased signal throughout his rotator cuff consistent with tendinopathy. The calcification does appear to be in the subacromial space. There is no evidence of full-thickness tearing of the rotator cuff. ASSESSMENT: Calcification of the rotator cuff versus subacromial space of the right shoulder with impingement syndrome. PLAN: His MRI and diagnosis is explained to him and his today. The anatomy and function of the rotator cuff is explained. Conservative and surgical treatment options are discussed and how these would relate to his paralysis. Given his dependence on his upper extremities in his wheelchair, I would recommend continued conservative treatment including physical therapy with iontophoresis, ice and heat as well as activity modification. He will follow up in the clinic in 6-8 weeks. If his symptoms are continuing to affect his desired activities and quality of life, his remaining option would be arthroscopy. All of his questions were answered today. He verbalized understanding and was in agreement with the diagnosis and treatment plan. If he has any questions or concerns prior to that appointment, he is to contact the office. I spent 25 minutes with the patient today greater than 50 percent of which involved education and coordination of care. This note was created using voice recognition software (iPipeline) and templating. George Bright DO 12/13/2011, 1:01 PM OR ACCOUNTING ASSOCIATE documented in this encounter Plan of Treatment Scheduled Referrals Name Type Priority Associated Diagnoses Order S yash PT - PHYSICAL THERAPY Referral Routine Ordere d: 12/13/2011 [[id number]] documented as of this encounter Visit Diagnoses Diagnosis Calcifying tendinitis of shoulder - Prim adi Impingement syndrome, shoulder Other affections of shoulder region, not elsewhere classified documented in this encounter
--- OUTSIDE RECORDS SUMMARY | 2022-06-20 02:29 | XMS_ITS | Encounter Summary ---
:1945 Author Organization [facility] Address [address] [place] [address] Care Team Providers Name Role Phone Garry Neff MD Primary Care Provider Reason for Visit Reason Comments FOLLOW-UP, TEST RESULTS Encounter Details Date Type Department Care Team Description 04/24/2012 Office Visit Specialty Center Garry Neff ndymoma (Primary [address] NeuroSurgery X, Dx) [address] [place] [address] [place], [place] [phone] (Wo rk) Social History Tobacco Use Types Packs/Day Years Used Date Smoking Tobacco: Never Smokeless Tobacco: Never Alcohol Use Standard Drinks/Week Comments No 0 (1 standard drink = 0.6 oz pure alcoho l) Sex Assigned at Date Recorded Male 08/06/2021 5:59 PM CDT documented as of this encounter Last Filed Vital Signs Vital Sign Reading Time Taken Comments Blood Pressure 149/86 04/24/2012 11:11 AM CDT Pulse 75 04/24/2012 11:11 AM CDT Temperature - - Respiratory Rate 18 04/24/2012 11:11 AM CDT Oxygen Saturation - - Inhaled Oxygen Concentration - - Weight - - Height - - Body Mass Index - - documented in this encounter Patient Instructions Patient InstructionsCorrie Merino RN - 04/24/2012 11:52 AM CDT Neurosurgery/Spine Clinic Patient Instructions Esmer will review your recent MRI with Dr. Neff and call you if there is a change of plans. You will be scheduled for a thoracic MRI in one year. Follow up with Dr. Garry Neff in one year. We will call you to schedule these appointments If tests were ordered, they will be [...] understanding. Please call the Neurosurgery/Spine Clinic at [phone] option #3 with any further questions or concerns. documented in this encounter Progress Notes Lucy Colmenares PA-C - 06/04/2012 4:04 PM CDT This is a follow up dictation on Carl Cullen is a 67 yr old male Date of : 1945 Cheif Complaint: discuss thoracic MRI Subjective: Carl Cullen is a 67 yr pt who presents today for a follow up appointment. 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 On May 09, 2010 we replaced the catheter of the baclofen pump due to meningitis. On May 29, 2010 we removed the baclofen pump and catheter and pt was then placed on IVabx for 10 days following the procedure. Currently here today to discuss MRI. Denies any new complaints or concerns Objective: BP 149/86 Pulse 75 Resp 18 General: alert, oriented to person, place, time and pleasant to converse Head: atraumatic Eyes: no scleral injection, EOMI grossly intact Chest/Pulmonary: chest rise equal bilaterally, no tachypnea, no retractions and no cyanosis Thoracic MRI: 1. No evidence of residual or recurrent tumor. 2. Stable postoperative changes in the upper thoracic spine. 3. Resection of a segment of the upper thoracic cord some mild atrophy lower cervical cord as Well as atrophy of the thoracic cord inferior to the area of resection. 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 On May 09, 2010 we replaced the catheter of the baclofen pump due to meningitis. On May 29, 2010 we removed the baclofen pump and catheter Plan: No recurrent tumor see F/u 1 year with repeat MRI Pt is to f/u 1 year or sooner if symptoms change or worsen or questions arise. Total time spent was 15 minutes of which more than 50% where used in counseling. 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
--- OUTSIDE RECORDS SUMMARY | 2022-06-20 02:29 | XMS_ITS | Encounter Summary ---
:1945 Author Organization [facility] Address [address], [place] [address] Care Team Providers Name Role Phone Unavailable Primary Care Provider Unavailable Reason for Referral Consult/Transfer Care - Closed Specialty Diagnoses / Procedures Referred By Contact Refer red To Contact May Randle MD [address] [place] [address] Referral ID Status Reason Start Date Expiration Date Visits Requ ested Visits Authorized [id number] Closed 12/17/2011 1 1 Scheduling Instructions Your provider has recommended an appoint ment with a [facility] Physical Therapist. Please stop at the clinic angel ck out desk for assistance with scheduling or please choose one of the convenient loca tions to call and schedule your PT appointment: [facility] Outpatient PT at [facility] [phone], [facility] Outpatient PT at the [facility] [phone], [facility] Outpatient PT in the [facility] [phone]. ARY TECHNICIAN Reason for Visit Reason Comments Revisit Muscle spasticity Encounter Details Date Type Department Care Team Description 12/17/2011 Office Visit Specialty Center May Randle Para plegia (Primary Dx); 401 Physical Kirsten Clemente MD Neurogenic bladder; [address] [facility] Neurogenic pain; [place] [address] [place], [place] Neurogenic bowel; [phone] Constipation; [phone] Spasticity; (Work) Thoracic spinal cord injury Social History Tobacco Use Types Packs/Day Years Used Date Smoking Tobacco: Never Smokeless Tobacco: Never Alcohol Use Standard Drinks/Week Comments No 0 (1 standard drink = 0.6 oz pure alcoho l) Sex Assigned at Date Recorded Male 08/06/2021 5:59 PM CDT documented as of this encounter Last Filed Vital Signs Vital Sign Reading Time Taken Comments Blood Pressure 102/59 12/17/2011 1:19 PM LIBRARY TECHNICIAN Pulse 99 12/17/2011 1:19 PM LIBRARY TECHNICIAN Temperature - - Respiratory Rate - - Oxygen Saturation - - Inhaled Oxygen Concentration - - Weight 107.7 kg (237 lb 6.4 oz) 12/17/2011 1:19 PM LIBRARY TECHNICIAN Height 175.3 cm (5' 9) 12/17/2011 1:19 PM LIBRARY TECHNICIAN Body Mass Index 35.06 12/17/2011 1:19 PM LIBRARY TECHNICIAN documented in this encounter Patient Instructions Patient InstructionsMay Randle MD - 12/17/2011 2:14 PM CST Daily Miralax Fiber in every meal Lots of fluids The night before bowel program use Dulcolax 2 tabs or MOM or castor oil Daily Senna at least two or up to 4 tabs Gradually wean baclofen as able ARY TECHNICIAN documented in this encounter Progress Notes May Randle MD - 12/17/2011 6:24 PM CST is accompanied to clinic today by his . He seen in followup with concerns about both spasticity, back pain, neurogenic bowel and wheelchair positioning. In 2010 he was hospitalized for surgical treatment of bilateral femoral condyle fractures and left tibia fracture. He has a history of thoracic ependymoma for a number of years and initially had his rehabilitation at [facility]. At that point he was still ambulatory and was discharged with a Breezy manual wheelchair. He did not need customized seating because he essentially used a wheelchair for transportation. Over the ensuing years he became progressively less mobile and now does not have function of his lower extremities. When he needed a new chair he simply ordered another breezy and did not really have evaluation of his positioning. He also has a 4 year old power hoveraround which he uses out of the home but in the home essentially was in the breezy all Day other than some time spent in a recliner in the evening . Over the past few months we did evaluate him for both a new power chair as well as a manual chair. He found a power chair to difficult to use in his home and preferred to get a new manual chairwhich he purchased privately as he did not think insurance would cover.He did not end up with any good customized seating.. recently he i has again been having more difficulty with back pain and was seen in the emergency room and given Ativan and morphine. He subsequently returned and was given Vicodin. Pain is described as in the left leg and low back.. He does continue to have times when at feels as though his back cramps up. He has been taught some exercises for this. He is receiving gabapentin 2700 mg per day for this. We have discussed that we can go up one more dosage and then would need to consider Lyrica. Neurosurgery has recently placed him on increasing amounts of Cymbalta and he is now on 60 mg daily He does remain on a fair amount of baclofen but is not having difficulty with lower extremity spasticity and we have discussed gradually weaning down to see if this is possible. Along with all of this he is having difficulty with his bowel program and the Vicodin has not helpedthis. He is taking to senna the day before the day of his bowel program and taking MiraLAX and briana oil the day of his bowel program. He is not taking anything consistently each day and we have discussed the importance of moving the MiraLAX to daily and the senna to at least daily if not twice a day. We have also discussed the possibility of something other than briana oil such as milk of magnesia or Dulcolax tablets. He did try Dulcolax tablets but not for any prolonged period of time. He notes he has been able to wean himself off of the Dantrium. They are also using mini enemas at times along with digital stimulation. He did at one point have an intrathecal baclofen pump placed through the [facility]. 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 We had been considering replacing the pump however once he had his lower extremities and hemorrhoid surgery his spasticity has been significantly decreased. He has continued outpatient therapies and has been seeing Dr. George Bright because of right shoulder pain. He apparently had a recent MRI which showed some calcification in the tendon. He is had no problems with skin pressure. He had had a raised area on his right distal lower extremity along with some erythema but had had the leg bag on that side. He moved leg bag to the other side and that his resolved. He does continue to drain his bladder via De La Cruz catheter which is changed monthly.. He now has a stander which is likely providing help with spasticity by providing prolonged stretch. It should also be helpful with his bowel program. He has not recently been able to use his nu step as of back pain. His bladder is drained via catheter indwelling. He has seen a urologist in the past and follows withhis primary care physician and they feel he has had a fairly recent CT of the abdomen which looks athis kidneys and bladder. He has had no recent infections. Previous review has revealed an MRI of [...] generally sleeping and eating well. He has gained weight because he is been less active He has a history of Bilateral deep vein thrombosis and does remain on Coumadin. He has a history of anxiety for which he was on Ativan. His is now home through the day she helps him with many of his cares including his transfers and bowel program. They do not have any other health aide assistance if in the home. They periodically seek out physical therapy for specific needs.She also helps him in the shower. He has a roll in shower and a bench that he transfers to. He has recently had a colonoscopy and endoscopy apparently for anemia. His primary care physician [facility]DrUgo [facility] at [facility] in [facility]. Past Medical History Diagnosis Date ??? 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 Glasgow at [place] in 05/2000. However resection was incomplete due [...] baclofen pump for spasticity of lower extremities. Allergies Allergen Reactions ??? Zaroxolyn (Sulfa Drugs) [...] 1 at baseline. Lives with his in [place]. Family History Problem Relation Age of Onset [...] acute distress. He is alert and oriented x4.. He has good upper extremity range of motion and strength. on the left and mild limitation of rightshoulder flexion on the right. He had a previous biceps injury on this side He has a sensory demarcation above the nipple level and does not have sensation below this. Skin is intact where observed. [place] have some lower extremity edema 1-2+ Tone is minimally increased in the lower extremities Rebeca 1+. There is no clonus. Deep tendon reflexes are brisk. 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 We have talked about decreasing his medications to see if he can get along on less oral medication. Because he is on an excessive dose of baclofen at 120 mg daily I again suggested beginning with this decreasing by 10- 20 mg every 5-7 days until he gets to 20 mg 3 times a day or 4 times a day. If spasticity increases this means we need to go back up on the dose. If hedid not note any change we will continue to work on weaning. 2) he has weaned off the Dantrium 3) continue outpatient therapy and stretching program 4) continue stander, NuStep, and upper extremity strengthening program 5) change MiraLAX to daily dosing as discussed previously 6) trial of Dulcolax tablets 1-2 per os or milk of magnesia on the night prior to his bowel program 7) senna at least daily two tablets up to twice daily two tablets 8) I encouraged adequate fluid intake and fiber with each meal 9) increase Neurontin to 1200 mg 3 times a day. Continue Cymbalta at 60 mg daily. His pain is still not manage we will consider switching to Lyrica 10) I still do not believe he has good support in his wheelchair which is likely contributing to hispain. I am going to refer him back to physical therapy to meet with him, his vendor, and seating from [employer] to provide appropriate positioning for him. At this point we can hopefully pursue this through his insurance 11 he will be scheduled back in three months however I I have asked him to call sooner if they have any questions 30/45 of today's minutes spent in education, counseling, and coordination of care. ARY TECHNICIAN documented in this encounter Plan of Treatment Scheduled Referrals Name Type Priority Associated Diagnoses Order S [facility] PHYSICAL THERAPY Referral Routine Ordered: documented as of this encounter Visit Diagnoses Diagnosis Paraplegia (HRC) - Primary Paraplegia Neurogenic bladder Neurogenic bladder, NOS Neurogenic pain Neuralgia, neuritis, and radiculitis, un specified Neurogenic bowel Constipation Unspecified constipation Spasticity Abnormal involuntary movements Thoracic spinal cord injury (HRC) T1-T6 level spinal cord injury, without evidence of spinal bone injury, unspecified documented in this encounter
--- OUTSIDE RECORDS SUMMARY | 2022-06-20 02:29 | XMS_ITS | Encounter Summary ---
:1945 Author Organization [employer] Address [address], [place] [address] Care Team Providers Name Role Phone Provider, Not On File Primary Care Provider Unavailable Reason for Visit Reason Comments Revisit Paraplegia Encounter Details Date Type Department Care Team Description 03/11/2012 Office Visit Specialty Center May Randle Para plegia (Primary Dx); 401 Physical Kirsten Clemente MD Ependymoma; [address] Neurogenic bladder; [place] [address] [place], [place] Back pain; [phone] [id number] Neurogenic bowel Social History Tobacco Use Types Packs/Day Years Used Date Smoking Tobacco: Never Smokeless Tobacco: Never Alcohol Use Standard Drinks/Week Comments No 0 (1 standard drink = 0.6 oz pure alcoho l) Sex Assigned at Date Recorded Male 08/06/2021 5:59 PM CDT documented as of this encounter Last Filed Vital Signs Vital Sign Reading Time Taken Comments Blood Pressure 139/83 03/11/2012 1:02 PM CDT Pulse 86 03/11/2012 1:02 PM CDT Temperature - - Respiratory Rate - - Oxygen Saturation - - Inhaled Oxygen Concentration - - Weight 114.3 kg (251 lb 14.4 oz) 03/11/2012 1:02 PM CDT Height 175.3 cm (5' 9) 03/11/2012 1:02 PM CDT Body Mass Index 37.2 03/11/2012 1:02 PM CDT documented in this encounter Progress Notes May Randle MD - 03/11/2012 5:31 PM CDT is accompanied to clinic today by his . He seen in followup with concerns about both spasticity, back pain, neurogenic bowel and wheelchair positioning. He has a history of thoracic ependymoma [...] he uses out of the home but inthe home essentially was in the breezy all Day other than some time spent in a recliner in the evening . n 2010 he was hospitalized for surgical treatment of bilateral femoral condyle fractures and left tibia fracture. Ultimately we did evaluate him for both a new power chair as well as a manual chair. He found a power chair too difficult to use in his home and preferred to get a new manual chair which he purchased privately as he did not think insurance would cover.He did not end up with any good customized seating.. Recently he has again been having more difficulty with back pain and was seen in the emergency room and given Ativan and morphine. He subsequently returned and was given Vicodin. Pain is described as in the left leg and low back.. He does continue to have times when at feels as though his back cramps up. He has been taught some exercises for this. He has been seeing Dr. Cohen in pain medicine. We have had him on gabapentin which was not helpful at therapeutic dose his so he is now on Lyrica. Neurosurgery had placed him on increasing amounts of Cymbalta and he remains on this He does remain on a fair amount of baclofen . We had tried him on Dantrium which he subsequently weaned off of. Dr. Cohen now has him taking when necessary tizanadine. He notes that this affects him cognitively and that he really can only take it at nighttime or if he is going to take a nap. Dr. Cohen recommended cutting the dose in half but he did not feel this was his helpful for his pain. Most recently Lidoderm patches were added but he has not found these to be helpful. I did refer him back to again [...] feel that it was worth getting. He is worked at [employer] and apparently has a different seat back on order but not the seat cushion . He is also taking Vicodin on an approximately daily basis. He has had some continued difficulty with his bowel program and the Vicodin has not helped this. He is taking 2 senna the day before the day of his bowel program and taking MiraLAX and briana oil the day of his bowel program. As we discussed that his last appointment, it is important to try his medications and program consistently for a long enough period of time to see if it is helpful. He will for example sometimes skip the MiraLAX. When I last saw him we placed him on a trial of Dulcolax tablets which he tried for very short period of time and did not feel was helpful. They are also using mini enemas at times along with digital stimulation. He takes his bowel medications in the morning and then has a bowel program about 1 PM. His is noted that his urine is decreased in amount and sometimes darker in color with more segment. We discussed the fact that with a De La Cruz catheter he needs to have generous fluid intake and I encouraged him to have at least 2-1/2 L per day. He did at one point have an intrathecal baclofen pump placed through the [facility]. 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 We had been considering replacing the pump however once he had his lower extremities and hemorrhoid surgery his spasticity was significantlydecreased. They are wondering today about a morphine pump if his pain does not get better and I haveasked him to discuss this with Dr. Cohen. He has been seeing Dr. George Bright because of right shoulder pain. He apparently had a recent MRI which showed some calcification in the tendon. He is completed physical therapy for this. He has had no problems with skin pressure.. He does continue to drain his bladder via De La Cruz catheterwhich is changed monthly.. He does have a stander which is likely providing help [...] and a bench that he transfers to. His primary care physician is Dr. Loretta GOSS at [facility] in [facility]. He continues to follow with Dr. Neff in neurosurgery regarding the thoracic tumor Past Medical History Diagnosis Date ??? 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 Glasgow at [place] in 05/2000. However resection was incomplete due [...] extremities. Current Outpatient Prescriptions Medication Sig ??? acetaminophen (TYLENOL) 325 MG tablet Take 325-650 mg by mouth every 4 hours as needed. ??? alendronate (AKA FOSAMAX) 70 MG tablet Take 70 mg by mouth once every week. ??? atorvastatin (LIPITOR) 40 MG tablet Take 1 Tab by mouth daily. ??? baclofen (AKA LIORESAL) 20 MG tablet Take 2 Tabs by mouth three times a day. Gradually decrease to 20 mg tid ??? bisacodyl (DULCOLAX) 5 MG enteric coated tablet Take 1-2 Tabs by mouth every 48 hours as needed for Constipation. ??? Calcium Carbonate (CALTRATE 600 OR) 2 tabs daily ??? Calcium-Vitamin D (CALTRATE 600 PLUS-VIT D OR) Take 2 Caps by mouth daily. ??? cholecalciferol (AKA VITAMIN D3) 1000 UNIT tablet Take 2 Tabs by mouth daily. ??? dantrolene (AKA DANTRIUM) 25 MG capsule Take 25 mg by mouth. 2 tablets daily ??? dexamethasone (AKA DECADRON) 4 MG/ML injection Apply 1 mL to skin. to be used during therapy foriontophoresis ??? Docusate Sodium (ENEMEEZ MINI RE) daily. ??? duloxetine (AKA CYMBALTA) 20 MG capsule Take 1 Cap by mouth two times a day. ??? duloxetine (AKA CYMBALTA) 20 MG capsule Take 1 Cap by mouth three times a day. ??? furosemide (AKA LASIX) 40 MG tablet Take 40 mg by mouth daily as needed. ??? gabapentin (NEURONTIN) 600 MG tablet Take 2 Tabs by mouth three times a day. ??? Gabapentin, PHN, 300 MG TABS three times a day. ??? HYDROcodone-acetaminophen (HYDROCODONE-APAP) 5-500 MG tablet Take 1-2 Tabs by mouth 4 times a day as needed for Pain. ??? lidocaine (AKA LIDODERM) 5 % patch Apply 3 Patches to skin . Apply once for up to 12 hrs within a 24 hr period. ??? LORazepam (AKA ATIVAN) 0.5 MG tablet Take 2 Tabs by mouth three times a day. ??? polyethylene glycol (AKA MIRALAX) packet Take 17 g by mouth daily. ??? potassium chloride (AKA KLOR-CON) 10 MEQ controlled release tablet Take 20 mEq by mouth. Takes 1-2 tabs daily prn. ??? pregabalin (AKA LYRICA) 50 MG capsule Take 1 Cap by mouth. lyrica 50mg tid, add one pill every few days to goal dose of 100mg tid ??? sennosides-docusate sodium (AKA SENNA-S,SENNA PLUS) 8.6-50 MG tablet Take 3 Tabs by mouth daily at bedtime. ??? sertraline (AKA ZOLOFT) 50 MG tablet Take 50 mg by mouth daily. ??? TESTOSTERONE TD Patch ??? TIZAnidine (ZANAFLEX) 4 MG tablet Take 1 Tab by mouth every 8 hours as needed (max of 3 per day). ??? TRIMETHOPRIM OR Take 100 mg by [...] 1 at baseline. Lives with his in [place]. Family History Problem Relation Age of Onset [...] level and does not have sensationbelow this. He points to wear his back and hip pain R. however is unable to feel anything when palpated in that area. Skin is intact where observed. He does have some lower extremity edema 1-2+ Tone isminimally increased in the lower extremities Rebeca 1+. There is no clonus. Deep tendon reflexes are brisk. He is sitting in a Hoveround chair today. He is wearing a lumbar support brace which he feels helps him with his pain although he cannot feel it in place. Assessment: 1) T4- T5 thoracic paraplegia secondary [...] on when necessary tizanadine per Dr. Cohen 2) as noted I given him a copy of the physical therapy wheelchair evaluation appointment. He apparently has a wheelchair back coming in which should help with better support. I am concerned that he mayneed a different wheelchair cushion as well in light of the pressure mapping. 3) continue home exercise program 4) continue stander, NuStep, at home as able 5) change MiraLAX to daily dosing as discussed previously -he still takes this inconsistently 6) increase senna or senna as to twice daily on a consistent basis-as noted we have had lengthy discussion about the need to make changes with one medication at a time and to be consistent in order to better evaluate the results 7) he will followup with Dr. Cohen in April 8) I again encouraged adequate fluid intake and fiber with each meal 9) I would like to see him back in six months or sooner on an as-needed basis 30/40 of today's minutes spent in education, counseling, and coordination of care. documented in this encounter Plan of Treatment Not on filedocumented as of this encounter Visit Diagnoses Diagnosis Paraplegia (HRC) - Primary Paraplegia 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, unspecified site Neurogenic bladder Neurogenic bladder, NOS Back pain Backache, unspecified Neurogenic bowel documented in this encounter Care Teams Photo Checker Relationship Specialty Start Date End Date Provider, Not On File PCP - General 03/03/12 04/23/12 [address] [place] [address] documented as of this encounter
--- OUTSIDE RECORDS SUMMARY | 2022-06-20 02:29 | XMS_ITS | Encounter Summary ---
:1945 [facility] Address [address], [place] [address] Care Team Providers Name Role Phone Garry Neff MD Primary Care Provider Encounter Details Date Type Department Care Team Description 02/19/2012 Therapy External to [facility], Provider Social History Tobacco Use Types Packs/Day Years Used Date Smoking Tobacco: Never Smokeless Tobacco: Never Alcohol Use Standard Drinks/Week Comments No 0 (1 standard drink = 0.6 oz pure alcoho l) Sex Assigned at Date Recorded Male 08/06/2021 5:59 PM CDT documented as of this encounter Progress Notes Physical Therapy, Provider - 02/19/2012 12:00 AM CDT documented in this encounter Plan of Treatment Not on filedocumented as of this encounter Visit Diagnoses Not on filedocumented in this encounter Care Teams Plumbing Contractor Relationship Specialty Start Date End Date Garry Neff MD PCP - General Neurosurgery 04/24/12 04/14/13 [address] [place] [address] documented as of this encounter
--- OUTSIDE RECORDS SUMMARY | 2022-06-20 02:29 | XMS_ITS | Encounter Summary ---
:1945 Author Organization [employer] Address [address], [place] [address] Care Team Providers Name Role Phone Unavailable Primary Care Provider Unavailable Reason for Visit Reason Onset Date Comments Follow-up, NOS 11/28/2011 Encounter Details Date Type Department Care Team Description 11/28/2011 Telephone Specialty Center 401 Selene Johnson, RN Follow-up, NOS NeuroSurgery [address] [place] [address] [place] [address] [phone] Social History Tobacco Use Types Packs/Day Years Used Date Smoking Tobacco: Never Smokeless Tobacco: Never Alcohol Use Standard Drinks/Week Comments No 0 (1 standard drink = 0.6 oz pure alcoho l) Sex Assigned at Date Recorded Male 08/06/2021 5:59 PM CDT documented as of this encounter Nursing Notes Selene Johnson RN - 11/29/2011 10:14 AM CST Reviewed with Lucy Target Network Analyst PAC and new order for Cymbalta 20 mg BID for a two week supply-received. Call placed and informed patient of the above and that he should call in 12-13 days to let us know if he is receiving more relief. He did verbalize understanding. Selene Johnson RN 11/29/2011, 10:13 AM ON CARE ASSOCIATE Selene Johnson RN - 11/28/2011 4:17 PM CST Received a call from this patients Heather stating that she was calling in on Jeff behalf to explain that he has been on the cymbalta 20 mg for one week with little change in his comfort level, this narrative writer did explain that at this time we will review with Lucy and give them a call back with the plan. She did verbalize understanding. Selene Johnson RN 11/28/2011, 4:17 PM ON CARE ASSOCIATE documented in this encounter Plan of Treatment Not on filedocumented as of this encounter Visit Diagnoses Not on filedocumented in this encounter
--- OUTSIDE RECORDS SUMMARY | 2022-06-20 02:29 | XMS_ITS | Encounter Summary ---
:1945 Author Organization [facility] Address [address] [address] Care Team Providers Name Role Phone Unavailable Primary Care Provider Unavailable Reason for Visit Reason Onset Date Comments Other 11/22/2011 Encounter Details Date Type Department Care Team Description 11/22/2011 Telephone Specialty Center 401 Garry Neff MD Other NeuroSurgery [address] [place] [address] [place] [address] [phone] Social History Tobacco Use Types Packs/Day Years Used Date Smoking Tobacco: Never Smokeless Tobacco: Never Alcohol Use Standard Drinks/Week Comments No 0 (1 standard drink = 0.6 oz pure alcoho l) Sex Assigned at Date Recorded Male 08/06/2021 5:59 PM CDT documented as of this encounter Nursing Notes Corrie Merino, RN - 11/22/2011 4:53 PM CST Spoke with patient's Heather. Let her know to have Jeff start taking cymbalta 20mg po qhs in addition to the neurontin for 7 days and to call back with an update in 6 days to let clinic know how patient is doing. If cymbalta is working, maybe increase dose to bid. Patient's stated that she spoke with a pharmacist earlier today and he mentioned cymbalta so Heather was gratetful that Ruth RAMSEY prescribed cymbalta. Sales Support Consultant electronically sent script to patient's pharmacy of choice. The patient's , Heather indicated understanding of these issues and agrees with the plan. Corrie Merino RN 11/22/2011, 4:53 PM OR SUPPLIER QUALITY ENGINEER Loretta Godinez RN - 11/22/2011 4:41 PM CST Discussed with Care Team, Pt to continue with Gabapentin .Verbal order from Judit RAMSEY we will add Cymbalta 20 mg 1 at bedtime for 7 days Please call with progress report in 6 days.Loretta Godinez RN OR SUPPLIER QUALITY ENGINEER Sweetie Sterling - 11/22/2011 11:10 AM CST Patient's calling because the change in Gabapentin has not helped with nerve pain. Please call with advice or appointment if he should be seen again. OR SUPPLIER QUALITY ENGINEER documented in this encounter Plan of Treatment Not on filedocumented as of this encounter Visit Diagnoses Diagnosis Ependymoma (HRC) - Primary Malignant neoplasm of brain, unspecified site documented in this encounter
--- OUTSIDE RECORDS SUMMARY | 2022-06-20 02:29 | XMS_ITS | Encounter Summary ---
:1945 Author Organization [employer] Address [address] [address] Care Team Providers Name Role Phone Garry Neff MD Primary Care Provider Reason for Visit Reason Onset Date Comments Refill 05/02/2012 Encounter Details Date Type Department Care Team Description 05/02/2012 Refill Specialty Center 401 Zelalem Cohen, Refill Interventional Pain Management [address] [place] [address] [place] [address] [phone] Social History Tobacco Use Types Packs/Day Years Used Date Smoking Tobacco: Never Smokeless Tobacco: Never Alcohol Use Standard Drinks/Week Comments No 0 (1 standard drink = 0.6 oz pure alcoho l) Sex Assigned at Date Recorded Male 08/06/2021 5:59 PM CDT documented as of this encounter Nursing Notes Mi Osborne RN - 05/06/2012 9:[address] Cohen notified. Mi Osborne RN 05/06/2012, 9:25 AM Mi Osborne RN - 05/02/2012 1:15 PM CDT Call received from patient and states that patient will be out of Lyrica today. Last rx is from01/29. 03/[address] Cohen states Overall medications are helping with no SE. Patient confirmed this today as well for Lyrica 100mg TID. Lyrica refilled at this dose to patient's preferred pharmacy. Patient appreciative of call. Will ERNESTO Cohen. Mi Osborne, RN 05/02/2012, 1:21 PM documented in this encounter Plan of Treatment Not on filedocumented as of this encounter Visit Diagnoses Diagnosis Ependymoma (HRC) - Primary Malignant neoplasm of brain, unspecified site documented in this encounter Care Teams Softlines Supervisor Relationship Specialty Start Date End Date Garry Neff MD PCP - General Neurosurgery 04/24/12 04/14/13 [address] [place] [address] documented as of this encounter
--- OUTSIDE RECORDS SUMMARY | 2022-06-20 02:29 | XMS_ITS | Encounter Summary ---
:1945 Author Organization [facility] Address [address] [address] Care Team Providers Name Role Phone Unavailable Primary Care Provider Unavailable Encounter Details Date Type Department Care Team Description 12/20/2011 Therapy External to Physical Therapy, Provider Social History Tobacco Use Types Packs/Day Years Used Date Smoking Tobacco: Never Smokeless Tobacco: Never Alcohol Use Standard Drinks/Week Comments No 0 (1 standard drink = 0.6 oz pure alcoho l) Sex Assigned at Date Recorded Male 08/06/2021 5:59 PM CDT documented as of this encounter Progress Notes Interface, In Chrtscr And Scan - 01/10/2012 3:13 PM BORDER MACHINE OPERATOR ER MACHINE OPERATOR documented in this encounter Plan of Treatment Not on filedocumented as of this encounter Visit Diagnoses Not on filedocumented in this encounter
--- OUTSIDE RECORDS SUMMARY | 2022-06-20 02:29 | XMS_ITS | Encounter Summary ---
:1945 Author Organization [facility] Address [address] [address] Care Team Providers Name Role Phone Unavailable Primary Care Provider Unavailable Encounter Details Date Type Department Care Team Description 11/08/2011 Therapy External to Physical Therapy, Provider Social History Tobacco Use Types Packs/Day Years Used Date Smoking Tobacco: Never Smokeless Tobacco: Never Alcohol Use Standard Drinks/Week Comments No 0 (1 standard drink = 0.6 oz pure alcoho l) Sex Assigned at Date Recorded Male 08/06/2021 5:59 PM CDT documented as of this encounter Progress Notes Interface, In Chrtscr And Scan - 11/30/2011 12:20 PM ELECTRICAL MAINTENANCE MAN TRICAL MAINTENANCE MAN documented in this encounter Plan of Treatment Not on filedocumented as of this encounter Visit Diagnoses Not on filedocumented in this encounter
--- OUTSIDE RECORDS SUMMARY | 2022-06-20 02:29 | XMS_ITS | Encounter Summary ---
:1945 Author Organization [facility] Address [address] [place] [address] Care Team Providers Name Role Phone Garry Neff MD Primary Care Provider Encounter Details Date Type Department Care Team Description 04/24/2012 Orders Only [facility] Specialty Alvarado Harris, [facility] [address] [place] [address] [place] [address] [phone] (Wo rk) Social History Tobacco Use Types [...] Associated Diagnosis Comme nts CREATININE/GFR, WB Routine 04/24/2012 9:15 AM Res ults for this POC CDT procedure are i n the results section. documented in this encounter Results CREATININE/GFR, WB POC (04/24/2012 9:15 AM CDT) P athologist Signature Creat Whole 0.9 0.66 - [facility] Blood 1.25 mg/dl GFR, Estimated >60.0 >60 [facility] ml/min/1.7 3m2 GFR, Est., If >60.0 >60 [facility] Black ml/min/1.7 3m2 Specimen Anatomical Collection Method Collection Time Receive d Time (Source) Location / / Volume Laterality 04/24/2012 9:15 AM 2 1:24 CDT PM CDT Alvarado Harris MD LAB_1 Performing Organization Address City/State/ZIP Code Phon e Number [facility] [phone] [facility] [address] [place] [phone] documented in this encounter Visit Diagnoses Not on filedocumented in this encounter Care Teams Obstetrics Technician Relationship Specialty Start Date End Date Garry Neff MD PCP - General Neurosurgery 04/24/12 04/14/13 [address] [place] [address] documented as of this encounter
--- OUTSIDE RECORDS SUMMARY | 2022-06-20 02:29 | XMS_ITS | Encounter Summary ---
:1945 Author Organization [facility] Address [address] [address] Care Team Providers Name Role Phone Unavailable Primary Care Provider Unavailable Encounter Details Date Type Department Care Team Description 11/15/2011 Scanned History External to Transferred Record, [facility] PH[facility]ICAL Provider THERAPY Social History Tobacco Use Types Packs/Day Years Used Date Smoking Tobacco: Never Smokeless Tobacco: Never Alcohol Use Standard Drinks/Week Comments No 0 (1 standard drink = 0.6 oz pure alcoho l) Sex Assigned at Date Recorded Male 08/06/2021 5:59 PM CDT documented as of this encounter Progress Notes Interface, In Chrtscr And Scan - 12/10/2011 10:55 AM DENTAL TECHNOLOGIST AL TECHNOLOGIST documented in this encounter Plan of Treatment Not on filedocumented as of this encounter Visit Diagnoses Not on filedocumented in this encounter
--- OUTSIDE RECORDS SUMMARY | 2022-06-20 02:29 | XMS_ITS | Encounter Summary ---
:1945 Author Organization [employer] Address [address] [address] Care Team Providers Name Role Phone Provider, Not On File Primary Care Provider Unavailable Reason for Visit Reason Comments Revisit Neuropathic pain syndrome Encounter Details Date Type Department Care Team Description 03/03/2012 Office Visit Specialty Center 401 Zelalem Cohen feliberto cord injury (Primary Dx); Interventional Pain L, DO Ependymoma Management [address] [place] [phone] Social History Tobacco Use Types Packs/Day Years Used Date Smoking Tobacco: Never Smokeless Tobacco: Never Alcohol Use Standard Drinks/Week Comments No 0 (1 standard drink = 0.6 oz pure alcoho l) Sex Assigned at Date Recorded Male 08/06/2021 5:59 PM CDT documented as of this encounter Last Filed Vital Signs Vital Sign Reading Time Taken Comments Blood Pressure 107/71 03/03/2012 9:56 AM CDT Pulse 93 03/03/2012 9:56 AM CDT Temperature - - Respiratory Rate - - Oxygen Saturation - - Inhaled Oxygen Concentration - - Weight - - Height - - Body Mass Index - - documented in this encounter Patient Instructions Patient InstructionsSchZelalem tierney MD - 03/03/2012 10:16 AM CDT 1. Continue the baclofen 2. Continue the lyrica 3. Ok to cut down the tizanidine in half to 2mg and use every 6 hours as needed 4. Add lidoderm patches as needed to low back, 12 hours on/12 hours off 5. Ok to wean from the back brace as tolerated 6. Ok to use the vicodin as needed 7. Continue the cymbalta, no change Follow up mid summer, Dr. Cohen documented in this encounter Progress Notes Zelalem Cohen MD - 03/03/2012 10:25 AM CDT Pain clinic follow up visit: Subjective: c/o back tightness more than pain. Overall medications are helping with no SE, except tizanidine makes him tired. Doing more exercise with improved tolerance and able to sit up more in his w/c. Objective: Filed Vitals: 03/03/12 0956 BP: 107/71 Pulse: 93 Gen: nad, a/o, present Msk: in powered w/c Back brace on Assessment: 1. SCI 2. Back pain, neuropathic and muscular Plan of Care: 1. Continue cymbalta 60mg per day 2. Cut tizanidine in half to 2mg q 6 hours prn 3. Ok for vicodin as needed 4. Added lidoderm patches 5. As tolerated wean from back brace 6. Continue hep Follow up: 3 months Zelalem Cohen DO 03/03/2012, 10:25 AM documented in this encounter Plan of Treatment Not on filedocumented as of this encounter Visit Diagnoses Diagnosis Unspecified site of spinal cord injury w ithout evidence of spinal bone injury - Primary 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, unspecified site documented in this encounter Care Teams Trailer Mechanic Relationship Specialty Start Date End Date Provider, Not On File PCP - General 03/03/12 04/23/12 [address] [place] [address] documented as of this encounter
--- OUTSIDE RECORDS SUMMARY | 2022-06-20 02:29 | XMS_ITS | Encounter Summary ---
:1945 Author Organization [facility] Address [address], [place] [address] Care Team Providers Name Role Phone Provider, Not On File Primary Care Provider Unavailable Reason for Visit Reason Onset Date Comments Medication Request 03/26/2012 Encounter Details Date Type Department Care Team Description 03/26/2012 Telephone Specialty Center 401 Zelalem Cohen , Medication Request Interventional Pain DO Management [address] [place] [phone] Social History Tobacco Use Types Packs/Day Years Used Date Smoking Tobacco: Never Smokeless Tobacco: Never Alcohol Use Standard Drinks/Week Comments No 0 (1 standard drink = 0.6 oz pure alcoho l) Sex Assigned at Date Recorded Male 08/06/2021 5:59 PM CDT documented as of this encounter Nursing Notes Mi Osborne RN - 03/26/2012 2:[address] Cohen authorized refill with no dose change. Will re-assess dose again at f/u appt in May. Informed patient. Patient in agreement with plan. Mi Osborne RN 03/26/2012, 2:02 PM Mi Osborne RN - 03/26/2012 10:58 AM CDT Please see below and advise regarding baclofen refill. Mi Osborne RN 03/26/2012, 10:58 AM Cristy Carson, RN - 03/26/2012 10:17 AM CDT Last si mg TID baclofen (gradually decrease to 20 mg TID) was carried over from 's notes in August 2011. Pt has seen Dr Cohen in consult since then, with last revisit on 03/03. I spoke to Heather, pt's , she confirmed that Dantroline is d/c'ed , tizanidine is 4 mg prn, using one per day. Baclofen is continued at 40 mg TID and not weaning. Refill sig corrected. 20 mg tabs qty 180 plus one refill should bring pt up to next clinic visit on 05/27/[address] Cohen. Next appt Dr Randle to be in Sep 2012. Cristy Carson RN documented in this encounter Plan of Treatment Not on filedocumented as of this encounter Visit Diagnoses Diagnosis Back pain - Primary Backache, unspecified documented in this encounter Care Teams Log Chain Worker Relationship Specialty Start Date End Date Provider, Not On File PCP - General 03/03/12 04/23/12 [address] [place] [address] documented as of this encounter
--- OUTSIDE RECORDS SUMMARY | 2022-06-20 02:29 | XMS_ITS | Encounter Summary ---
:1945 Author [facility] Address [address] [address] Care Team Providers Name Role Phone Unavailable Primary Care Provider Unavailable Encounter Details Date Type Department Care Team Description 11/30/2011 Notes/Orders Specialty Center 401 Selene Johnson RN NeuroSurgery [address] [place] [address] [place] [address] [phone] Social History Tobacco Use Types Packs/Day Years [...]
--- OUTSIDE RECORDS SUMMARY | 2022-06-20 02:29 | XMS_ITS | Encounter Summary ---
:1945 Author Organization [facility] Address [address], [place] [address] Care Team Providers Name Role Phone Unavailable Primary Care Provider Unavailable Reason for Visit Reason Comments SHOULDER PAIN rt Encounter Details Date Type Department Care Team Description 12/06/2011 Office Visit Specialty Center George Bright C alcific tendinitis 435 Orthopedics DO of shoulder (Primary Clinic [address]) [address] [place] [address] [phone] (Wo rk) Social History Tobacco Use Types Packs/Day Years Used Date Smoking Tobacco: Never Smokeless Tobacco: Never Alcohol Use Standard Drinks/Week Comments No 0 (1 standard drink = 0.6 oz pure alcoho l) Sex Assigned at Date Recorded Male 08/06/2021 5:59 PM CDT documented as of this encounter Patient Instructions Patient InstructionsCourtney [place] LPN - 12/06/2011 11:25 AM CST 1. MRI referral completed. Stop at the check in desk to schedule, otherwise you can call [phone] to schedule MRI. 2. Recheck here in a few days after imaging has been completed. 3. No medications added to regimen today; OTC meds only as needed 4. Ice or low heat heating pad for symptom management. 5. Call/return sooner if problems 6. Follow up with PCP for general medical issues. Please fill out the information below prior to checking out or calling to schedule your MRI. 1. Is this Due to Work Injury (Work Comp) or Motor Vehicle Accident 2. Have you had any other imaging done(CT's, X-rays, or MRI's) for the same problem or indications OUTSIDE of [facility]? IF yes, When & Where? 3. Do you have a pacemaker? If yes, we cannot schedule an MRI. 4. Do you have any metals in your body? (I.e. Aneurisym clips, stents, screws, plates, pins) If yes, we need to know what it is and when it was placed in the body? 5. Is there any chance there could be metal in your eyes? Possibly from an accident or any grinding or welding or sheet metal work they may have done. 6. What is your current weight? 7. Are you Claustrophobic? If yes, would you like sedation? If yes, you will need a otr company truck driver for the appointment. 8. Do you have sleep apnea? If yes, we cannot offer sedation, it would then need to be ordered by the Dr. 9. Have you ever been diagnosed with cancer? If yes, what kind? 10. Have you ever had previous surgery on the area or extremity of the body we are scanning? ONAL COMPUTER NETWORK ENGINEER documented in this encounter Progress Notes Paz Caldera - 12/06/2011 12:32 PM CST ORTHOPAEDIC CLINIC NOTE DATE OF SERVICE: 12/06/2011 CHIEF COMPLAINT: Follow-up right shoulder SUBJECTIVE: The patient presents today for reevaluation of the right shoulder. He is using vicodin for pain medication. Since his last visit, his shoulder pain has returned. He received a corticosteroid injection on October 30 which provided good relief for a couple weeks. The patient reports his pain now is worse than it was prior to the injection. He continues with physical therapy though is not making much progress because of his pain. He has no new complaints today. PHYSICAL EXAM: He is alert and oriented x3 and in no acute distress. Breathing is unlabored. RIGHT SHOULDER: Skin is normal. Radial pulse is palpable. Sensation to light touch is intact throughout all distal dermatomes. Motor function is intact distally. He has a range of motion from 90 degrees of forward flexion, 90 degrees of abduction, 75 degrees of external rotation at 90 degrees of abduction andinternal rotation to L5. Neer and Mccray impingement signs are positive. Rotator cuff muscle strength is 4/5. 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 He is a paraplegic and relies heavily on his upper extremities PLAN: He has not had an MRI of the shoulder and given the duration of his symptoms we feel this would be beneficial in further evaluating his rotator cuff. They would like to do this near their home [facility]. He will follow up in the clinic following the MRI to delineate a more detailed treatment plan. All of his questions were answered today. He verbalized understanding and was in agreement withthe diagnosis and treatment plan. If he has any questions or concerns prior to that appointment, he is to contact the office. The patient was seen and evaluated by both myself and Dr. George Bright, who was present for all medical decision making. Paz Caldera PA-C ONAL COMPUTER NETWORK ENGINEER documented in this encounter Plan of Treatment Not on filedocumented as of this encounter Visit Diagnoses Diagnosis Calcific tendinitis of shoulder - Primar y Calcifying tendinitis of shoulder documented in this encounter
--- OUTSIDE RECORDS SUMMARY | 2022-06-20 02:29 | XMS_ITS | Encounter Summary ---
:1945 [facility] Organization [facility] Address [address] [address] Care Team Providers Name Role Phone Garry Neff MD Primary Care Provider Encounter Details Date Type Department Care Team Description 04/24/2012 Imaging [facility] Specialty Alfonso Neff, Screening for Center MRI nephropathy (Primary [address]) [place] [address] [place] [address] [phone] (Wo rk) Social History Tobacco Use Types [...] Diagnosis Comme nts MR THORACIC SPINE Routine 04/24/2012 10:45 AM Res ults for this W/WO IV CONT CDT procedure are i n the results section. documented in this encounter Results MR THORACIC SPINE WITH/WITHOUT CONTRAST (04/24/2012 10:45 AM CDT) Anatomical Region Laterality Modality Spine, T-Spine, L-Spine, C-Spine, Skeletal Magnetic Resonance Specimen (Source) Anatomical Collection Method Collection Time Re ceived Time Location / / Volume Laterality 04/24/2012 10:45 AM CDT Narrative 04/24/2012 11:44 AM CDT [facility] THORACIC SPINE MRI 04/24/2012 INDICATION: Followup thoracic spinal cor d ependymoma. TECHNIQUE: Thoracic spine MRI without an d with contrast. 20 mL of Magnevist. COMPARISON: 09/18/2011 FINDINGS: No evidence of residual or recurrent elizabeth or. MRI of the thoracic spine without and with contrast is unchanged c ompared to 09/18/2011. Status post upper thoracic laminectomies . Resection of the upper thoracic cord extending from the T2-T3 to the mid T5 vertebral body level. There is some atrophy of the lower cervical and u pper thoracic cord above the level of resection as well as some atrophy of the thoracic cord inferior to the resection. No evidence of leptomeningeal metastatic disease in the thoracic spine. Post radiation bone marrow changes in th e lower cervical and upper thoracic vertebra. No osseous lesions seen. No e vidence of a compression fracture. CONCLUSION: 1. No evidence of residual or recurrent tumor. 2. Stable postoperative changes in the u pper thoracic spine. 3. Resection of a segment of the upper t horacic cord some mild atrophy lower cervical cord as well as atrophy o f the thoracic cord inferior to the area of resection. Procedure Note Julien Anna MD - 04/24/2012Formatt ing of this note might be different from the original. [facility] THORACIC SPINE MRI 04/24/2012 INDICATION: Followup thoracic spinal cor d ependymoma. TECHNIQUE: Thoracic spine MRI without an d with contrast. 20 mL of Magnevist. COMPARISON: 09/18/2011 FINDINGS: No evidence of residual or recurrent elizabeth or. MRI of the thoracic spine without and with contrast is unchanged c ompared to 09/18/2011. Status post upper thoracic laminectomies . Resection of the upper thoracic cord extending from the T2-T3 to the mid T5 vertebral body level. There is some atrophy of the lower cervical and u pper thoracic cord above the level of resection as well as some atrophy of the thoracic cord inferior to the resection. No evidence of leptomeningeal metastatic disease in the thoracic spine. Post radiation bone marrow changes in th e lower cervical and upper thoracic vertebra. No osseous lesions seen. No e vidence of a compression fracture. CONCLUSION: 1. No evidence of residual or recurrent tumor. 2. Stable postoperative changes in the u pper thoracic spine. 3. Resection of a segment of the upper t horacic cord some mild atrophy lower cervical cord as well as atrophy o f the thoracic cord inferior to the area of resection. Garry Neff MD RAD MRI documented in this encounter Visit Diagnoses Diagnosis Screening for nephropathy - Primary documented in this encounter Care Teams Solvent Mixer Relationship Specialty Start Date End Date Garry Neff MD PCP - General Neurosurgery 04/24/12 04/14/13 [address] [place] [address] documented as of this encounter
--- OUTSIDE RECORDS SUMMARY | 2022-06-20 02:29 | XMS_ITS | Encounter Summary ---
:1945 Author Organization [employer] Address [address] [address] Care Team Providers Name Role Phone Garry Neff MD Primary Care Provider Reason for Visit Reason Onset Date Comments Refill 06/13/2012 Encounter Details Date Type Department Care Team Description 06/13/2012 Refill Specialty Center 401 Zelalem Cohen, DO Refill Interventional Pain Management [address] [place] [address] [place] [address] [phone] Social History Tobacco Use Types Packs/Day Years Used Date Smoking Tobacco: Never Smokeless Tobacco: Never Alcohol Use Standard Drinks/Week Comments No 0 (1 standard drink = 0.6 oz pure alcoho l) Sex Assigned at Date Recorded Male 08/06/2021 5:59 PM CDT documented as of this encounter Nursing Notes Mi Osborne RN - 06/13/2012 3:[address] Cohen notified. Mi Osborne RN 06/13/2012, 3:32 PM Mi Osborne RN - 06/13/2012 1:45 PM CDT Refill received for tizanidine. 05/27 note states Change tizanidine to 2mg qhs prn, eliminate daily dose. Med ordered per Dr. Cohen's note. Mi Osborne RN 06/13/2012, 1:49 PM documented in this encounter Plan of Treatment Not on filedocumented as of this encounter Visit Diagnoses Diagnosis Back pain - Primary Backache, unspecified documented in this encounter Care Teams Wearing Apparel Assembler Relationship Specialty Start Date End Date Garry Neff MD PCP - General Neurosurgery 04/24/12 04/14/13 [facility] [place] [address] documented as of this encounter
--- OUTSIDE RECORDS SUMMARY | 2022-06-20 02:29 | XMS_ITS | Encounter Summary ---
:1945 Author Organization [facility] Address [address] [address] Care Team Providers Name Role Phone Garry Neff MD Primary Care Provider Reason for Visit Reason Onset Date Comments THERAPY ORDERS 01/16/2012 Encounter Details Date Type Department Care Team Description 01/16/2012 Telephone [facility] ArnoldTrudi, PT THERAPY ORDERS Physical Therapy [address] [place] [address] [place] [address] [phone] Social History Tobacco Use Types Packs/Day Years Used Date Smoking Tobacco: Never Smokeless Tobacco: Never Alcohol Use Standard Drinks/Week Comments No 0 (1 standard drink = 0.6 oz pure alcoho l) Sex Assigned at Date Recorded Male 08/06/2021 5:59 PM CDT documented as of this encounter Nursing Notes May Randle MD - 01/16/2012 2:21 PM CST Written-definitely needs-has more back pain and not optimally postiioned. May Randle MD [employer] MEDICA[employer] Kati Sheriff - 01/16/2012 9:13 AM CST Pt was referred for a Physical Therapy mobility assessment on 12/17. Pt was scheduled for this PT Evalon 01/16. Due to the recent change in [place] and [place] guidelines this order is . If you feel ptwill still benefit from this assessment please update order. Thanks for your time. Kati Sheriff 01/16/2012, 9:13 AM CTOR MEDICAID documented in this encounter Plan of Treatment Not on filedocumented as of this encounter Visit Diagnoses Not on filedocumented in this encounter Care Teams Mainframe Software Developer Relationship Specialty Start Date End Date Garry Neff MD PCP - General Neurosurgery 04/24/12 04/14/13 [facility] [place] [address] documented as of this encounter
--- OUTSIDE RECORDS SUMMARY | 2022-06-20 02:29 | XMS_ITS | Encounter Summary ---
:1945 Author Organization [facility] Address [address] [place] [address] Care Team Providers Name Role Phone Provider, Not On File Primary Care Provider Unavailable Encounter Details Date Type Department Care Team Description 03/31/2012 Notes/Orders Specialty Center 401 Selene Johnson, RN [facility] [address] [facility] [place] [address] [place] [address] [phone] Social History Tobacco Use Types Packs/Day Years Used Date Smoking Tobacco: Never Smokeless Tobacco: Never Alcohol Use Standard Drinks/Week Comments No 0 (1 standard drink = 0.6 oz pure alcoho l) Sex Assigned at Date Recorded Male 08/06/2021 5:59 PM CDT documented as of this encounter Nursing Notes Selene Johnson RN - 03/31/2012 11:44 AM CDT Request for refill of Cymbalta 20 mg received from pharmacy of choice. Reviewed with care team and refill sent to pharmacy.Selene Johnson, VALERIE 03/31/2012, 11:45 AM documented in this encounter Plan of Treatment Not on filedocumented as of this encounter Visit Diagnoses Not on filedocumented in this encounter Care Teams Internet Marketer Relationship Specialty Start Date End Date Provider, Not On File PCP - General 03/03/12 04/23/12 [address] [place] [address] documented as of this encounter
--- OUTSIDE RECORDS SUMMARY | 2022-06-20 02:29 | XMS_ITS | Encounter Summary ---
:1945 Author Organization [facility] Address [address], [place] [address] Care Team Providers Name Role Phone Unavailable Primary Care Provider Unavailable Reason for Visit Reason Onset Date Comments Medication Request 11/22/2011 Encounter Details Date Type Department Care Team Description 11/22/2011 Telephone Specialty Center 401 May Randle, Medication Request Physical Medicine MD 401 [facility]. [address] [place] [address] [place] [address] [phone] (Wo rk) Social History Tobacco Use Types Packs/Day Years Used Date Smoking Tobacco: Never Smokeless Tobacco: Never Alcohol Use Standard Drinks/Week Comments No 0 (1 standard drink = 0.6 oz pure alcoho l) Sex Assigned at Date Recorded Male 08/06/2021 5:59 PM CDT documented as of this encounter Nursing Notes Cristy Carson RN - 11/26/2011 10:05 AM CST I spoke to Stanislav Lucas at the [facility] [facility], pt continues to be dispensed 20 mg tabs wit sig to take 40 mg three times a day. Last refill used 10/23/11 (original write on 07/19/11) I spoke to vero Bangura's , they are still using at 40 mg TID due to continued back pain, had discussed with Dr Neff at last visit here in Oct. Possible cause due to a fragment in spinal canal causing irritation. I renewed med as they are now completely out of baclofen tablets, plus one additional refill (due towinter time in the event the appt of Dec 17 has to be postponed.) is in agreement with this plan. Cristy Carson RN PRESIDENT RISK MANAGEMENT Linda Dwyer - 11/22/2011 2:31 PM CST Patient's called for a refill of patient's baclofen (AKA LIORESAL) 20 MG tablet. Please review and call her back at [phone] if there's any questions. PRESIDENT RISK MANAGEMENT documented in this encounter Plan of Treatment Not on filedocumented as of this encounter Visit Diagnoses Not on filedocumented in this encounter
--- OUTSIDE RECORDS SUMMARY | 2022-06-20 02:29 | XMS_ITS | Encounter Summary ---
:1945 Author Organization [facility] Address [address] [address] Care Team Providers Name Role Phone Unavailable Primary Care Provider Unavailable Encounter Details Date Type Department Care Team Description 01/23/2012 Therapy External to Physical Therapy, Provider Social History Tobacco Use Types Packs/Day Years Used Date Smoking Tobacco: Never Smokeless Tobacco: Never Alcohol Use Standard Drinks/Week Comments No 0 (1 standard drink = 0.6 oz pure alcoho l) Sex Assigned at Date Recorded Male 08/06/2021 5:59 PM CDT documented as of this encounter Progress Notes Interface, In Chrtscr And Scan - 02/04/2012 8:43 AM CDT documented in this encounter Plan of Treatment Not on filedocumented as of this encounter Visit Diagnoses Not on filedocumented in this encounter
--- OUTSIDE RECORDS SUMMARY | 2022-06-20 02:29 | XMS_ITS | Encounter Summary ---
:[address] [facility] Address [address] [place] [address] Care Team Providers Name Role Phone Unavailable Primary Care Provider Unavailable Encounter Details Date Type Department Care Team Description 12/06/2011 Notes/Orders Specialty Center 401 Selene Johnson, RN NeuroSurgery [address] [place] [address] [place] [address] [phone] Social History Tobacco Use Types Packs/Day Years Used Date Smoking Tobacco: Never Smokeless Tobacco: Never Alcohol Use Standard Drinks/Week Comments No 0 (1 standard drink = 0.6 oz pure alcoho l) Sex Assigned at Date Recorded Male 08/06/2021 5:59 PM CDT documented as of this encounter Nursing Notes Selene Johnson RN - 12/06/2011 9:40 AM CST called in and stated that this patient has been using the Cymbalta and is now, getting better relief however he increased to 1 tablet TID, wondering if this is a reasonable dose. Order for Cymbalta placed and sent to pharmacy of choice.Selene Johnson RN 12/06/2011, 9:40 AM Called and left message explaining the above plan. Selene Johnson RN 12/06/2011, 10:06 AM LSTERY MECHANIC documented in this encounter Plan of Treatment Not on filedocumented as of this encounter Visit Diagnoses Not on filedocumented in this encounter
--- OUTSIDE RECORDS SUMMARY | 2022-06-20 02:29 | XMS_ITS | Encounter Summary ---
:1945 Author Organization [employer] Address [address] [place] [address] Care Team Providers Name Role Phone Unavailable Primary Care Provider Unavailable Reason for Visit Reason Comments Consult, New Patient Chronic nerve pain Consult/Transfer Care - Closed Specialty Diagnoses / Procedures Referred By Contact Refer red To Contact May Randle MD [address] [place] [address] Referral ID Status Reason Start Date Expiration Date Visits Requ ested Visits Authorized [id number] Closed 01/14/2012 1 1 Encounter Details Date Type Department Care Team Description 01/30/2012 [facility] Visit [facility] 401 Zelalem Cohen europathic pain Interventional Pain L, DO syndrome Management [address] (non-herpetic) [address] [place], [place] (Primary Dx) [place] [address] [phone] Social History Tobacco Use Types Packs/Day Years Used Date Smoking Tobacco: Never Smokeless Tobacco: Never Alcohol Use Standard Drinks/Week Comments No 0 (1 standard drink = 0.6 oz pure alcoho l) Sex Assigned at Date Recorded Male 08/06/2021 5:59 PM CDT documented as of this encounter Last Filed Vital Signs Vital Sign Reading Time Taken Comments Blood Pressure 100/61 01/30/2012 8:53 AM CDT Pulse 83 01/30/2012 8:53 AM CDT Temperature - - Respiratory Rate - - Oxygen Saturation - - Inhaled Oxygen - - Concentration Weight 109.8 kg (242 lb) 01/30/2012 8:53 AM chair weigh s 230 lbs, CDT total of 472 lbs Height 172.7 cm (5' 8) 01/30/2012 8:53 AM CDT Body Mass Index 36.8 01/30/2012 8:53 AM CDT documented in this encounter Patient Instructions Patient InstructionsSchZelalem tierney MD - 01/30/2012 9:20 AM CDT 1. Continue the cymbalta no change 2. Continue the baclofen at 120mg per day with no change 3. Increase lyrica by 50mg every few days to goal of 100mg three times per day 4. Add tizanidine at 4mg three times per day as needed 5. Ok for vicodin as currently taking Follow up [place] [address] cohen documented in this encounter Progress Notes Zelalem Cohen MD - 01/30/2012 10:08 AM CDT I had the pleasure of meeting Mr. Carl Cullen on 01/30/2012 in the outpatient pain clinic in consult for Dr. Randle with regards to his chronic low back pain. 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 He is w/c bound and no arom LE. No LE sensation to light touch/pressure. Has c/o left low back pain and lateral left hip pain worse with UE arom and worse with sitting. Some pain relief with lying supine. No pain radiating down legs. On a bowel program. Has a green in place. Taking baclofen 120mg per day, was on lower doses with increased back pain, on cymbalta at 60mg per day, lyrica 150mg per day, failed neurontin at 1200mg tid, vicodin one per day. present with him today. Past Medical History Diagnosis Date ??? 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 Glasgow at [facility] in 05/2000. However resection was incomplete due [...] for spasticity of lower extremities. ??? 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 Leg fracture, left nontraumatic ??? Hypercholesteremia ??? Chronic constipation ??? Depression Past Surgical History Procedure Date ??? Appendectomy ??? Vasectomy* ??? Turp incl contrl postop bleed cmpl ??? Total knee replacement (77974) right ??? Ivc filter placement 1999 Medications: Outpatient prescriptions prior to encounter Medication Sig Dispense Refill ??? atorvastatin (LIPITOR) 40 MG tablet Take 1 Tab by mouth daily. ??? bisacodyl (DULCOLAX) 5 MG enteric coated tablet Take 1-2 Tabs by mouth every 48 hours as needed for Constipation. 62 Tab 11 ??? Calcium-Vitamin D (CALTRATE 600 PLUS-VIT D OR) Take 2 Caps by mouth daily. ??? cholecalciferol (AKA VITAMIN D3) 1000 UNIT tablet Take 2 Tabs by mouth daily. 60 Tab 11 ??? dantrolene (AKA DANTRIUM) 25 MG capsule Take 25 mg by mouth. 2 tablets daily ??? dexamethasone (AKA DECADRON) 4 MG/ML injection Apply 1 mL to skin. to be used during therapy foriontophoresis 30 mL 0 ??? duloxetine (AKA CYMBALTA) 20 MG capsule Take 1 Cap by mouth two times a day. 28 Cap 0 ??? duloxetine (AKA CYMBALTA) 20 MG capsule Take 1 Cap by mouth three times a day. 180 Cap 1 ??? furosemide (AKA LASIX) 40 MG tablet Take 40 mg by mouth daily as needed. ??? gabapentin (NEURONTIN) 600 MG tablet Take 2 Tabs by mouth three times a day. 180 Tab 4 ??? Gabapentin, PHN, 300 MG TABS three times a day. ??? HYDROcodone-acetaminophen (HYDROCODONE-APAP) 5-500 MG tablet Take 1-2 Tabs by mouth 4 times a day as needed for Pain. 40 Tab ??? LORazepam (AKA ATIVAN) 0.5 MG tablet Take 2 Tabs by mouth three times a day. ??? polyethylene glycol (AKA MIRALAX) packet Take 17 g by mouth daily. 10 Each 2 ??? potassium chloride (AKA KLOR-CON) 10 MEQ controlled release tablet Take 20 mEq by mouth. Takes 1-2 tabs daily prn. ??? sennosides-docusate sodium (AKA SENNA-S,SENNA PLUS) 8.6-50 [...] 10 mg Saturday Based on INR ??? baclofen (AKA LIORESAL) 20 MG tablet Take 2 Tabs by mouth three times a day. Gradually decrease to 20 mg tid 180 Tab 1 ??? pregabalin (AKA LYRICA) 25 MG capsule Take 1 Cap by mouth three times a day. For 2 weeks then 2 caps tid 180 Cap 2 Allergies: Allergies Allergen Reactions ??? Zaroxolyn (Sulfa Drugs) Rash ??? Oxycodone Other, see comments Delirium Family History: family history includes Cancer, Breast in his sister; Cancer, Colon in his mother; Cancer, Other in his brother; and Osteoporosis in his mother. Social history: he is not currently working. He does not smoke. ROS: Gen: no f/c/s CV: No cp Lung: no sob GI: bowel program, neurogenic bowel : neurogenic bladder, green Neuro: as noted, SCI Msk: back pain Endo: no dm Heme: No anemia Skin: no rash, open wounds Psych: depression Objective: Filed Vitals: 01/30/12 0853 BP: 100/61 Pulse: 83 Height: 5' 8 (1.727 m) Weight: 242 lb (109.77 kg) General: alert oriented present Mental status: displays appropriate affect Head: normocephalic and atraumatic Eyes: conjunctivae, lids, pupils, and irises are within normal limits Respiratory: normal respiratory efforts Msk: nttp left low back, unable to sense light touch/pressure low back Neuro: as noted, in w/c, powered Skin: no rashes on back noted Assessment: 1. Hx of SCI, ependymoma 2. Central mediated neuropathic pain 3. Muscular components of pain Plan 1. Patient education: I went over the above diagnoses and treatment plan with him and answered all of his questions. 2. Exercise program: continue working with therapy, PMR 3. Medications: 1. Continue cymbalta at 60mg per day, consider changing to 90mg per day in future 2. Ok for one-two vicodin per day prn 3. Titrate lyrica to 300mg per day, rx for pt 4. Tizanidine d/t central acting, prn, rx for pt 5. Would continue baclofen at 120mg per day, pt tried to decrease with increased left low back pain 4. Imaging Orders: none 5. Interventions: none 6. F/u in 3-4 wks Thank you for the consult. Zelalem Cohen, 01/30/2012, 10:08 AM documented in this encounter Plan of Treatment Not on filedocumented as of this encounter Visit Diagnoses Diagnosis Neuropathic pain syndrome (non-herpetic) - Primary Neuralgia, neuritis, and radiculitis, un specified documented in this encounter
--- OUTSIDE RECORDS SUMMARY | 2022-06-20 02:29 | XMS_ITS | Encounter Summary ---
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
--- OUTSIDE RECORDS SUMMARY | 2022-06-20 02:29 | XMS_ITS | Encounter Summary ---
:1945 [facility] Address [address] [address] Care Team Providers Name Role Phone Franklin Squires MD Primary Care Provider Encounter Details Date Type Department Care Team Description 04/24/2012 Correspondence [facility] Rad[facility], MRI SAFETY SHEET [address] [facility] Provider [place] [address] Social History Tobacco Use Types Packs/Day Years Used Date Smoking Tobacco: Never Smokeless Tobacco: Never Alcohol Use Standard Drinks/Week Comments No 0 (1 standard drink = 0.6 oz pure alcoho l) Sex Assigned at Date Recorded Male 08/06/2021 5:59 PM CDT documented as of this encounter Progress Notes [facility], PROVIDER - 04/24/2012 12:00 AM CDT documented in this encounter Plan of Treatment Not on filedocumented as of this encounter Visit Diagnoses Not on filedocumented in this encounter Care Teams Tin Stacker Relationship Specialty Start Date End Date Franklin Squires MD PCP - General Family Practice 03/08/16 [address] [facility] [place] [address] documented as of this encounter
--- OUTSIDE RECORDS SUMMARY | 2022-06-20 02:30 | XMS_ITS | Encounter Summary ---
:1945 Author Organization [facility] Address [address] [place] [address] Care Team Providers Name Role Phone Unavailable Primary Care Provider Unavailable Encounter Details Date Type Department Care Team Description 09/18/2011 [facility] Specialty Scr eening for nephropathy Center MRI (Primary Dx) [address] [place] [address] Social History Tobacco Use Types [...] Associated Diagnosis Comme nts CREATININE/GFR, WB Routine 09/18/2011 1:45 PM Screening for Re sults for this POC HEAD ESTHETICIAN nephropathy procedure are i n the results section. MR LUMBAR SPINE Routine 09/18/2011 1:39 PM Result s for this W/WO IV CONT HEAD ESTHETICIAN procedure are i n the results section. documented in this encounter Results HS Radiology ONLY - CREATININE/GFR, WB POC (09/18/2011 1:45 PM HEAD ESTHETICIAN) P athologist Signature Creat Whole 1.1 0.66 - [facility] Blood 1.25 mg/dl GFR, Estimated >60.0 >60 [facility] ml/min/1.7 3m2 GFR, Est., If >60.0 >60 [facility] Black ml/min/1.7 3m2 Specimen Anatomical Collection Method Collection Time Receive d Time (Source) Location / / Volume Laterality 09/18/2011 1:45 PM 1 1:49 HEAD ESTHETICIAN PM HEAD ESTHETICIAN Radames Sanders MD LAB_1 Performing Organization Address City/State/ZIP Code Phon e Number [facility] [phone] [address] MR LUMBAR SPINE WITH/WITHOUT CONTRAST (09/18/2011 1:39 PM HEAD ESTHETICIAN) Anatomical Region Laterality Modality Spine, L-Spine, Skeletal Magnetic Resona nce Specimen (Source) Anatomical Collection Method Collection Time Re ceived Time Location / / Volume Laterality 09/18/2011 1:39 PM HEAD ESTHETICIAN Narrative 09/19/2011 3:59 PM HEAD ESTHETICIAN [facility] THORACIC SPINE MRI LUMBAR SPINE MRI 09/18/2011 INDICATION: Followup thoracic spinal elizabeth or resection TECHNIQUE: Thoracic spine MRI without an d with contrast. Lumbar spine MRI without and with contrast. 20 mL of Magnevist. COMPARISON: Thoracic spine MRI 02/08/2011 and lumbar spine MRI 04/05/2010. FINDINGS: THORACIC SPINE MRI: Stable postoperative changes involving the upper thoracic cord with resection of the cord extending from the T2-T3 interspace to the mid T5 vertebral body level. Postradiation changes involving the marrow in the upper thorac ic spine. Decrease in the size of the postoperative fluid collection in th e posterior paraspinal soft tissues. No evidence of residual or recu rrent tumor in the thoracic spinal canal. Atrophy of the cervical and upper thoracic cord. Atrophy of the mid and lower thoracic cord. Abnormal signal within the conus. These findings are unchanged compared to 02/08/2011. No evidence of recurrent tumor. LUMBAR SPINE MRI: There is some clumping of the nerve roots within the cauda equina in the upper, mid and lower lumbar region which was not present on 04/05/2010. 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 No evidence of leptomenin geal drop metastasis in the lumbar spinal region. Lumbar spondylosis. No osseous lesions s een. L4-L5: Small midline protrusion. Mild to moderate facet arthropathy. Moderate narrowing of the neural foramin a. No evidence of canal stenosis. L5-S1: Moderate to advanced degenerative disc changes with marked interspace narrowing. Moderate facet art hropathy with moderate to severe narrowing of the neural foramina which i s unchanged. IMPRESSION: 1. Stable postoperative changes involvin g the upper thoracic spine and upper thoracic spinal cord. No evidence of residual or recurrent spinal cord neoplasm. 2. There is some atrophy of the lower ce rvical and remaining thoracic cord. Abnormal T2 signal in the conus. These findings are stable compared to the previous exam. 3. Decrease in the postoperative fluid c ollection in the posterior paraspinal soft tissues in the upper tho racic region. 4. Clumping of the nerve roots within th e lumbar spinal canal consistent with adhesive arachnoiditis. This findin g is new compared to 04/05/2010. 5. No evidence of leptomeningeal metasta tic disease. Procedure Note Julien Anna - 09/20/2011 [facility] THORACIC SPINE MRI LUMBAR SPINE MRI 09/18/2011 INDICATION: Followup thoracic spinal elizabeth or resection TECHNIQUE: Thoracic spine MRI without an d with contrast. Lumbar spine MRI without and with contrast. 20 mL of Magnevist. COMPARISON: Thoracic spine MRI 02/08/2011 and lumbar spine MRI 04/05/2010. FINDINGS: THORACIC SPINE MRI: Stable postoperative changes involving the upper thoracic cord with resection of the cord extending from the T2-T3 interspace to the mid T5 vertebral body level. Postradiation changes involving the marrow in the upper thorac ic spine. Decrease in the size of the postoperative fluid collection in th e posterior paraspinal soft tissues. No evidence of residual or recu rrent tumor in the thoracic spinal canal. Atrophy of the cervical and upper thoracic cord. Atrophy of the mid and lower thoracic cord. Abnormal signal within the conus. These findings are unchanged compared to 02/08/2011. No evidence of recurrent tumor. LUMBAR SPINE MRI: There is some clumping of the nerve roots within the cauda equina in the upper, mid and lower lumbar region which was not present on 04/05/2010. 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 No evidence of leptomenin geal drop metastasis in the lumbar spinal region. Lumbar spondylosis. No osseous lesions s een. L4-L5: Small midline protrusion. Mild to moderate facet arthropathy. Moderate narrowing of the neural foramin a. No evidence of canal stenosis. L5-S1: Moderate to advanced degenerative disc changes with marked interspace narrowing. Moderate facet art hropathy with moderate to severe narrowing of the neural foramina which i s unchanged. IMPRESSION: 1. Stable postoperative changes involvin g the upper thoracic spine and upper thoracic spinal cord. No evidence of residual or recurrent spinal cord neoplasm. 2. There is some atrophy of the lower ce rvical and remaining thoracic cord. Abnormal T2 signal in the conus. These findings are stable compared to the previous exam. 3. Decrease in the postoperative fluid c ollection in the posterior paraspinal soft tissues in the upper tho racic region. 4. Clumping of the nerve roots within th e lumbar spinal canal consistent with adhesive arachnoiditis. This findin g is new compared to 04/05/2010. 5. No evidence of leptomeningeal metasta tic disease. Garry Neff MD RAD MRI documented in this encounter Visit Diagnoses Diagnosis Screening for nephropathy - Primary documented in this encounter
--- OUTSIDE RECORDS SUMMARY | 2022-06-20 02:30 | XMS_ITS | Encounter Summary ---
:1945 [facility] Address [address] [address] Care Team Providers Name Role Phone Unavailable Primary Care Provider Unavailable Encounter Details Date Type Department Care Team Description 09/18/2011 Correspondence [facility] Radiology, MRI SAFETY SHEET [address] [facility] [place] [address] Social History Tobacco Use Types Packs/Day Years Used Date Smoking Tobacco: Never Smokeless Tobacco: Never Alcohol Use Standard Drinks/Week Comments No 0 (1 standard drink = 0.6 oz pure alcoho l) Sex Assigned at Date Recorded Male 08/06/2021 5:59 PM CDT documented as of this encounter Progress Notes [facility], PROVIDER - 09/25/2011 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
--- OUTSIDE RECORDS SUMMARY | 2022-06-20 02:30 | XMS_ITS | Encounter Summary ---
:1945 Author Organization [facility] Address [address] [address] Care Team Providers Name Role Phone Unavailable Primary Care Provider Unavailable Encounter Details Date Type Department Care Team Description 04/04/2011 Office Visit [facility] Trudi Raymundo PT Osteoporosis; Physical Therapy [address] Paraplegia [address] [place] [address] [phone] (Wo rk) Social History Tobacco Use Types Packs/Day Years Used Date Smoking Tobacco: Never Alcohol Use Standard Drinks/Week Comments No 0 (1 standard drink = 0.6 oz pure alcoho l) Sex Assigned at Date Recorded Male 08/06/2021 5:59 PM CDT documented as of this encounter Progress Notes Trudi Raymundo PT - 05/18/2011 8:07 AM CDT Trudi Raymundo PT - 04/25/2011 8:45 PM CDT Trudi Raymundo PT - 04/04/2011 2:08 PM CDT Comment: omitted portion regarding physician as was incorrect Comment: added final w/c recommendations in italics PHYSICAL THERAPY SEATING/MOBILITY EVALUATION Carl Cullen [address] [place] [address] 1945 Estimated Body mass index is 33.43 kg/(m^2) as calculated from the following: Height as of this encounter: 5' 10(1.778 m). Weight as of this encounter: 233 lb(105.688 kg). 03/15/2011 Diagnosis: Paraplegia Payor: MEDICARE PART B ONLY [id number] Plan: MEDICARE PART B ONLY Product Type: Medicare Physician: Dr. Randle Funding: Medicare / [employer] Vendor: [employer] Seating and Mobility Onset Date: 03/13/11 MEDICAL HISTORY: History/Progression: He has a history of thoracic ependymoma for a number of years, [facility] No customized seating at any point and has not been evaluated for a wheelchair (manual or power). Has become less mobile over the last several years. He had a surgery on his spine last year performed by Dr. Neff to remove more of the tumor. He developed Menegitis last year and had to have his Baclofen Pump removed. He has a lot of back pain. Under went surgery for his fractures on 03/13/11: Per Dr. 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 It also showed evidence of mild bilateral greater trochanter or status versus mild tenderness strain at the gluteal insertions. Additionally there was mild edema within the iliac is muscles bilaterally right greater than left probably secondary to mild muscle strain. It is noted that he has had treatment by physical therapy for his trochanteritis. Patient Active Problem List Diagnoses Code ??? 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 Fever 780.60BQ ??? Probable Bacterial Meningitis 320.9D ??? DVT (Deep Venous Thrombosis) 453.40U ??? Neurogenic Bladder 596.54AL ??? HTN (Hypertension) 401.9AE ??? CAREPLAN: BACLOFEN 01995 ??? Osteoporosis 733.00C Past Medical History Diagnosis Date ??? 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 Glasgow at [place] in 05/2000. However resection was incomplete due [...] for spasticity of lower extremities. ??? Osteoporosis ??? Leg fracture, left nontraumatic ??? Hypercholesteremia ??? Chronic constipation ??? Depression Past Surgical History Procedure Date ??? Appendectomy ??? Vasectomy* ??? Turp incl contrl postop bleed cmpl ??? Total knee replacement (50566) right ??? Ivc filter placement 1999 Recent/Planned Surgeries: 03/13/11 PROCEDURE: 1. Plating of right lateral femoral condyle. 2. Plating of left lateral femoral condyle. 3. Plating of left medial tibial plateau fracture. Cardio-Respiratory Status: intact CURRENT SEATING/MOBILITY: (Type - Pharm Tech-Model) Chair: [employer] W/C, age: 3 1/2 years w/c Cushion: Van seat, age: same as chair w/c Back: Van back, age: same as chair Also has a Breezy 600, age unknown with sling back and Basic Angus Combi cushion (no pressure relieving features). This was purchased privately. Is 18 inches wide. Patient's lateral thighs press against sides of arm rests. Patient was noted to have area of pressure along lateral thighs when being transferred back to bed when evaluated in the hospital for a [employer] manual chair on 03/20/11. Reason for replacement: needs better positioning. Funding source: Medicare A [employer] 9000 manual wheelchair that was 20 inches wide was dispensed to patient to take home with him for better positioning. It has a sling back on it. He has a pressure relieving cushion aswell. He has relatively good positioning in this wider manual chair but reports pain in his back and discomfort with inadequate back support. HOME ENVIRONMENT: Patient lives with spouse/significant other [...] spends more time in his manual wheelchair but admits that he might spend more time in a power wheelchair if it was more comfortable.He does report shoulder pain with self propelling at times and does have trouble propelling on his carpet at home. COMMUNITY ADL: Transportation: vehicle adapted for wheelchair to lock in for driving. 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 OBJECTIVE: [...] 100 degrees bilaterally. Ankle dorsiflexion to neutral. Spasticity is noted in hip adductors and hamstrings when performing ROM. STRENGTH: UE strength is WNL but does have pain with resistance testing to external rotation. Has noLE motor function remaining and lacks trunk control consistent with paraplegia affecting T3 and lower. Lacks trunk and LE sensation. Lacks trunk control due to level of involvement of his spinal cord tumor. ALIGNMENT: Pelvic: Iliac crests height : Level Pelvic Obliquity: none noted in his current manual chair Scoliosis: none Kyphosis: yes. Edema: has LE edema, wears LUIS hose for this. Tries to elevate feet in recliner in evening but has difficulty with transfers. Skin integrity: He has had no recent areas of skin pressure. Following hospitalization last year he did have the beginning of a pressure area that never opened and healed. Was having some pressure along thighs in his [id number] 600 manual wheelchair that was 18 inches wide. COGNITIVE / VISUAL STATUS: Memory Skills: intact Problem Solving: intact Judgment: intact Attn/Concentration: intact Vision: intact Hearing: intact Other: intact ADL STATUS: Dressing: currently requiring assistance for [...] perform adequately for sufficient time for pressure relief. Lacks trunk control to lean forward or to the side without using UE to support. Hours spent sitting in w/c each day: as needed PATIENT'S GOALS: To get a wider chair that doesn't cause pressure over lateral thighs. To maintain functional mobility. Interested in possibility of a new power chair versus a different manual chair. CLINICAL CRITERIA / ALGORITHM SUMMARY: 1. Is there a mobility limitation causing an inability to safely participate in one or more MobilityRelated Activities of Daily Living in a reasonable time frame: yes. 2. Are there cognitive or sensory deficits (awareness/judgement/vision/etc) that limit the users ability to safely participate in one or more MRADL's? Yes, has decreased sensation in LE's and trunk butis aware of this. Is very aware of maintaining skin integrity. If yes, can they be accommodated/compensated for [...] environment support the use of a manual wheelchair and power wheelchair? yes. 6. If a manual wheelchair is recommended, does the user have sufficient function/abilities to use the recommended equipment? Partially. He has developed some right shoulder pain. He is at risk for development of future shoulder problems limiting his ability to self propel in his current wheelchair. Tra nsfers are difficult for him and pressure relieving is difficult due to shoulder pain and left elbowpain. 7. If a POV is recommended, does the user have sufficient stability and upper extremity function to operate it? no. 8. If a power wheelchair is recommended, does the user have sufficient function/abilities to use therecommended equipment? Yes. Currently has a power wheelchair but does not have rehab seating. TODAY'S TREATMENT: Wheelchair seating and fitting assessment x 80 minutes. Education provided in pros and cons of ultralight weight manual wheelchair with rehab seating versus a power wheelchair with rehab seating and power tilt. RECOMMENDATION / GOALS: Patient was seen as a consult as an inpatient for a new manual wheelchair on 03/20/11. At this point,it may be more appropriate to pursue a different power wheelchair with rehab seating due to the added feature of tilt and possibly more suspension for spasticity management. He is scheduled to return to PT as an outpatient on 04/04/11 to discuss power mobility versus manual wheelchair. He will have an opportunity to maneuver in a manual wheelchair that is wider and will have a loaner wider wheelchair until another wheelchair can be arranged for him. It is this therapist's opinion that group 3 power mobility with rehab seating and tilt in space would be more appropriate for him. His home is set up for this type of equipment as is his vehicle as long as his Easy lock mechanism can be transferred fromhis current power chair to the new power wheelchair. He would still have a manual wheelchair to fallback on but should be cautious to avoid remaining in the chair for long periods of time. Additionally, he may be able to modify his current manual wheelchair with the vendor's assistance to make it wider for a better fit. A trial of a power wheelchair with tilt is recommended to see if this would alleviate some of his pressure issues and potentially some of his back pain. This would reduce the need for multiple transfers as well to reduce risk for skin break down. A pressure relieving cushion and supportive back would also be required. A manual wheelchair (reactor operator weight than is Breezy) could potentially be appropriate if the power wheelchair trial does not go well. 05/01/11 After a trial of the [employer]are TDX SP with tilt power wheelchair Mr. Cullen had decided that he maneuvered best in his home with his current Lightweight Breezy 600. His transfers were going well in this chair. He is, however going to be paying privately for a Posture back Elite that will provide some added lumbar support and trunk support as well as an Evolution Cushion for pressure relief. The vendor is going to be lengthening the seat depth to accommodate the cushion and also widening the chair toa 20 inch width to accommodate Mr. Cullen's dimensions. He is opting to pay privately for this equipment because he doesn't want his insurance company to deny any future repairs to his current power wh eelchair which he will only be using outdoors and on outings for shorter periods of time. He does not want to pursue a reactor operator weight manual wheelchair as he is living in a relatively small home with hardwood floors and tile in most of his living areas so he doesn't have trouble propelling his chair. The added chair width relieves any lateral thigh and hip pressure that had been occurring and the added depth nicely supports his femurs. Mr. Cullen was contacted with on 05/01/11 to confirm that this is what his decision is. This therapist believes this is an appropriate wheelchair for him given his current living situation and functional needs. It was, however, reviewed with the patient that he should avoid prolonged sitting in his current power wheelchair with captain's seating as it provides no pressure relief for him. He did verbalize understanding for this. 05/31/11 NOTE: after the above recommendation was made, Mr. Cullen ended up purchasing a new [id number] 600 20'x18' chair through [employer] in [place], [place]. A Comfort [employer] Radius Back was purchased along with a low profile Roho Cushion. Mr. Cullen chose to do this as the quote was cheaper than the above recommended equipment and he was going to be paying for the equipment privately. Both the cushionand the back above will provide better positioning and support as well as some pressure relief in the cushion. His current chair has no support due to having a sling back only. His current cushion doesnot provide any pressure relief. Regardless, the chair that he purchased offers more than what his cu rrent chair does. It should, however be noted that he did not discuss his options with the therapistprior to ordering the chair that he did and this therapist did not make the final recommendations that he ended up purchasing. I, the undersigned, certify that the above prescribed, durable, medical equipment, is medically necessary as part of my treatment for Carl Cullen. In my opinion, the equipment prescribed is reasonable and necessary according to the accepted standards of medical practice and treatment for parapl egia and has not been prescribed as convenience equipment. If you require further information or clarification, please do not hesitate to contact this therapist at . Thank you for your prompt action with this matter. Sincerely, Trudi Raymundo PT License Number: [id number] Please sign below and fax this report, with your signature, to our clinic at [phone]. Your signature is required to continue treatment of the above patient per Medicare/Medical Assistance regulations. I certify the need for the above services furnished under this treatment plan while under my care. Dr. May Randle MD Date ROS Physical Exam documented in this encounter Plan of Treatment Not on filedocumented as of this encounter Visit Diagnoses Diagnosis Osteoporosis ([facility]) Osteoporosis, unspecified Paraplegia ([facility]) Paraplegia documented in this encounter
--- OUTSIDE RECORDS SUMMARY | 2022-06-20 02:30 | XMS_ITS | Encounter Summary ---
:1945 Author Organization [facility] Address [address], [place] [address] Care Team Providers Name Role Phone Unavailable Primary Care Provider Unavailable Reason for Visit Reason Onset Date Comments THERAPY ORDERS 03/19/2011 Encounter Details Date Type Department Care Team Description 03/19/2011 Telephone [facility] Trudi Raymundo, PT THERAPY ORDERS Physical Therapy [address] [place] [address] [place] [address] [phone] Social History Tobacco Use Types Packs/Day Years Used Date Smoking Tobacco: Never Alcohol Use Standard Drinks/Week Comments No 0 (1 standard drink = 0.6 oz pure alcoho l) Sex Assigned at Date Recorded Male 08/06/2021 5:59 PM CDT documented as of this encounter Nursing Notes Trudi Raymundo, PT - 03/19/2011 8:[address] Randle, I met with a patient that you had seen a few weeks ago, Jeff Cullen. You had wanted him to be seen for a wheelchair / seating eval while he was an inpatient after his surgery. I evaluated him on 03/15/11. He went home with a wider manual wheelchair that was fisher quahog weight to allow him more width to avoid skin breakdown over his lateral thighs / trochanters. He is coming back in on 04/04/11 for an outpatient wheelchair evaluation. I wanted him to try a different manual wheelchair but I would also like him to try a power chair with rehab seating and power tilt to see if he does better in the power chair. Since you had initially recommended the seating evaluation, would you please enter orders in Epic for an outpatient seating evaluation to determine whether a power w/c with rehab seating versus a manual wheelchair with rehab seating would be more appropriate? Thank you for your time. Trudi Raymundo PT documented in this encounter Plan of Treatment Not on filedocumented as of this encounter Visit Diagnoses Not on filedocumented in this encounter
--- OUTSIDE RECORDS SUMMARY | 2022-06-20 02:30 | XMS_ITS | Encounter Summary ---
:1945 Author Organization [facility] Address [address] [place] [address] Care Team Providers Name Role Phone Unavailable Primary Care Provider Unavailable Reason for Visit Reason Comments Post Hospital Discharge Follow Up Encounter Details Date Type Department Care Team Description 03/19/2011 Telephone Online Community Manager Brittny Leyva, Post Hospital [address] - powder shoveler [place] Up [id number] [facility] [address] [place], [place] [id number] [place] [id number] Social History Tobacco Use Types Packs/Day Years Used Date Smoking Tobacco: Never Alcohol Use Standard Drinks/Week Comments No 0 (1 standard drink = 0.6 oz pure alcoho l) Sex Assigned at Date Recorded Male 08/06/2021 5:59 PM CDT documented as of this encounter Nursing Notes Brittny Leyva, RN - 03/19/2011 12:48 PM CDT Carl Cullen was hospitalized for ORIF L tibia plateau, ORIF L femoral condyle, ORIF R femoral condyle and discharged from [facility] on 03/16/11 to home. Service and Experience questions: Was there anything [facility] could have done to make your hospital experience better? NO Have you already spoken with a patient patient account representative from [facility] about your concern? not applicable Do you give permission to be called by a patient patient account representative from [facility] to discuss your concernfurther? not applicable Patient notified they will be receiving a survey in the next 2 weeks regarding their stay and that this call does not replace answering the survey? Yes Spoke with patient. Name of batch attendant and contact information N/A. Verbal permission obtained to talk to batch attendant? not applicable Patient having difficulty with ADL???s? yes bathing, food preparation, getting dressed, ambulating and going up or down stairs Reconciled discharge medications with patient. Discrepancies noted: none Concerns discussed: Unexpected change in condition: none Pain control: Pain is at 4 on a scale of 0-10 and controlled. TYLENOL Patient teaching: Coumadin/INR N/A Reviewed hospital discharge instructions Reviewed when to call Careline and number to call: [phone] or Confirmed using teach back method that patient and/or caregiver can state their medications and doses to take, discharge instructions, appointments they have scheduled, who to call if their condition worsens. Follow up Plan: Appointments made by hospital staff: 03/27/2011 9:45 AM Satish Bowling Orthopedics [phone] [facility] 04/04/2011 1:00 PM Trudi Raymundo Physical Therapy [facility] 05/10/2011 9:30 AM Mr 1a Radiology Mri [phone] [facility] 05/10/2011 10:20 AM Garry Neff Neurosurgery [phone] [facility] 05/24/2011 10:50 AM Quan Ames Endocrinology [phone] [facility] 05/30/2011 10:15 AM May Randle Physical Medicine [phone] [facility] PT. AWARE Appointments made today:PT. HAS APPT. WITH PCP, ZULEIMA GOSS 03/22/11. INR testing: WILL HAVE DONE TODAY. . Follow up labs needed per discharge instructions N/A Additional concerns to address at follow up clinic appointment: N/A NO F/U COORDINATION NEEDED. PT. UNDERSTANDS MEDS, HOW & WHEN TO ADMINISTER THEM & AGREES WITH PLAN OF CARE WILL CLOSE CASE. documented in this encounter Plan of Treatment Not on filedocumented as of this encounter Visit Diagnoses Not on filedocumented in this encounter
--- OUTSIDE RECORDS SUMMARY | 2022-06-20 02:30 | XMS_ITS | Encounter Summary ---
:1945 Author Organization [facility] Address [address] [address] Care Team Providers Name Role Phone Unavailable Primary Care Provider Unavailable Reason for Visit Reason Onset Date Comments Medication Request 07/19/2011 Encounter Details Date Type Department Care Team Description 07/19/2011 Telephone Specialty Center 401 May Randle, Medication Request Physical Medicine MD [address] [facility]. [address] [place] [address] [place] [address] [phone] (Wo rk) Social History Tobacco Use Types Packs/Day Years Used Date Smoking Tobacco: Never Smokeless Tobacco: Never Alcohol Use Standard Drinks/Week Comments No 0 (1 standard drink = 0.6 oz pure alcoho l) Sex Assigned at Date Recorded Male 08/06/2021 5:59 PM CDT documented as of this encounter Nursing Notes Cristy Carson RN - 07/19/2011 5:05 PM CDT Discussed at appt, transferring Rx from Dr Davis, also see email from pt. Last visit 05/30 Next appt 08/22 documented in this encounter Plan of Treatment Not on filedocumented as of this encounter Visit Diagnoses Not on filedocumented in this encounter
--- OUTSIDE RECORDS SUMMARY | 2022-06-20 02:30 | XMS_ITS | Encounter Summary ---
:1945 Author Organization [facility] Address [address] [address] Care Team Providers Name Role Phone Unavailable Primary Care Provider Unavailable Reason for Referral Specialty Diagnoses / Procedures Referred By Contact Refer red To Contact Satish Bowling MD [address] [place] [id number] Referral ID Status Reason Start Date Expiration Date Visits Requ ested Visits Authorized Scheduling Instructions If scheduling assistance is needed, ninfa duran inquire with the medical office staff upon exiting your appointment or contact the ordering clinic for recommended locations. This recommended service/s may not be co maycol by your insurance coverage. To find out your specific benefit coverage, please c all the number on your insurance card. Reason for Visit Reason Comments POST-OP,EXAM s/p ORIF L tib plat Encounter Details Date Type Department Care Team Description 04/24/2011 Office Visit [facility] Satish Bowling Tibial plateau fracture (Primary Dx); Orthopedics MD Bryn Closed fracture of condyle of left femur ; [address] [facility] [address] [facility] Closed fracture of [place] [address] [place], [place] [phone] Social History Tobacco Use Types Packs/Day Years [...] - Inhaled Oxygen Concentration - - Weight 106 kg (233 lb 11.2 oz) 04/24/2011 10:40 AM CDT Height - - Body Mass Index 33.53 03/13/2011 12:20 PM CDT documented in this encounter Patient Instructions Patient InstructionsMalathi Martinez LPN - 04/24/2011 11:08 AM CDT PT referral completed today. Call or return to clinic prn if these symptoms worsen, fail to improve as anticipated, or if new symptoms develop. No future appointments needed at this time. documented in this encounter Progress Notes Satish Bowling - 05/01/2011 12:17 PM CDT DATE OF SERVICE: 04/24/2011 SUBJECTIVE: The patient has bilateral lateral femoral condyle fractures and also a medial tibial plateau fracture on the left side. He is 6 weeks out from internal fixation. These injuries probably happened quite a bit earlier and so got a head start on healing certainly. He has noticed some stiffnessin his left knee with the inability to extend it completely butt this is his only real complaint. OBJECTIVE: GENERAL: On exam he is alert, oriented and in his usual mood and affect. Heart: Regular rate and rhythm. Lungs: Respirations are regular and unlabored. Eyes: Anicteric and reactive. Extremities: His incisions are well-healed. His legs remain swollen and stiff as they often are. I did get him within 10 degrees of full extension, and actually closer to 5 degrees with some time and effort. I think his hamstrings are a bit tight and he would benefit by having those stretched some more. ASSESSMENT AND PLAN: He is anxious to resume physical therapy and I think this would be fine with the caveat that his injuries probably occurred with some type of rotation exercise applied to the hips.I will let him start using his stander on 06/05 although again, these injuries are old enough that he would probably be safe doing it before then. AP and lateral x-rays of both knees were taken today which show a healing callus on both sides. They also show the hardware in unchanged position from whenit was placed during surgery. He will follow up with me as needed. If he would like to come back around the end of May, we would do additional x-rays of both knees AP and lateral. Satish Bowling MD NET DEVELOPER CONSULTANT:merari Dictated: 04/24/2011 11:17:59 Transcribed: 04/25/2011 06:01:52 Job: [id number] Doc: [id number] cc: documented in this encounter Plan of Treatment Scheduled Referrals Name Type Priority Associated Diagnoses Order S chedule PT - PHYSICAL THERAPY Referral Routine Ordere d: 04/24/2011 [[id number]] documented as of this encounter Results XR KNEE AP/LAT 2 VIEWS RIGHT (04/24/2011 10:28 AM CDT) Anatomical Region Laterality Modality Lower Extremity, Knee Computed Radiograp hy Specimen (Source) Anatomical Collection Method Collection Time Re ceived Time Location / / Volume Laterality 04/24/2011 10:28 AM CDT Narrative 04/24/2011 2:02 PM CDT RIGHT KNEE AND LEFT KNEE 2 VIEWS 04/24/2011 INDICATION: Trauma. COMPARISON: Right knee and left knee 2 v iews 03/14/2011. RIGHT KNEE: ??Lateral plate and screw fi xation of the distal right femur. No instrumentation loosening or migration. Comminuted fracture of the right femoral metadiaphysis again identified w ithout complete bony bridging. A fracture plane extends into the medial a spect of the medial condylar articular surface. This fracture plane i s better visualized than on the prior exam. Fragment alignment is anatom ic. The proximal tibia and fibula are intact. Stable moderate medial damian rtment osteophytic spurring. Right suprapatellar effusion again identified. The previously noted subcutaneous air has resolved. LEFT KNEE: Lateral plate and screw fixat ion of the distal femur and anterior medial plate and screw fixation of the proximal tibia. No instrumentation loosening or migration. No subluxation. Alignment is anatomic. Complete bony union of the fra ctures is not identified. Stable mild narrowing of the medial joint damian rtment. Small suprapatellar joint effusion again identified. The previousl y noted air has resolved. Procedure Note Riki Eng - 04/24/2011 RIGHT KNEE AND LEFT KNEE 2 VIEWS 04/24/2011 INDICATION: Trauma. COMPARISON: Right knee and left knee 2 v [facility] 03/14/2011. RIGHT KNEE: Lateral plate and screw fixa tion of the distal right femur. No instrumentation loosening or migration. Comminuted fracture of the right femoral metadiaphysis again identified w ithout complete bony bridging. A fracture plane extends into the medial a spect of the medial condylar articular surface. This fracture plane i s better visualized than on the prior exam. Fragment alignment is anatom ic. The proximal tibia and fibula are intact. Stable moderate medial damian rtment osteophytic spurring. Right suprapatellar effusion again identified. The previously noted subcutaneous air has resolved. LEFT KNEE: Lateral plate and screw fixat ion of the distal femur and anterior medial plate and screw fixation of the proximal tibia. No instrumentation loosening or migration. No subluxation. Alignment is anatomic. Complete bony union of the fra ctures is not identified. Stable mild narrowing of the medial joint damian rtment. Small suprapatellar joint effusion again identified. The previousl y noted air has resolved. Satish Bowling MD RAD GD XR KNEE AP/LAT 2 VIEWS LEFT (04/24/2011 10:28 AM CDT) Anatomical Region Laterality Modality Lower Extremity, Knee Computed Radiograp hy Specimen (Source) Anatomical Collection Method Collection Time Re ceived Time Location / / Volume Laterality 04/24/2011 10:28 AM CDT Narrative 04/24/2011 2:02 PM CDT RIGHT KNEE AND LEFT KNEE 2 VIEWS 04/24/2011 INDICATION: Trauma. COMPARISON: Right knee and left knee 2 v [facility] 03/14/2011. RIGHT KNEE: ??Lateral plate and screw fi xation of the distal right femur. No instrumentation loosening or migration. Comminuted fracture of the right femoral metadiaphysis again identified w ithout complete bony bridging. A fracture plane extends into the medial a spect of the medial condylar articular surface. This fracture plane i s better visualized than on the prior exam. Fragment alignment is anatom ic. The proximal tibia and fibula are intact. Stable moderate medial damian rtment osteophytic spurring. Right suprapatellar effusion again identified. The previously noted subcutaneous air has resolved. LEFT KNEE: Lateral plate and screw fixat ion of the distal femur and anterior medial plate and screw fixation of the proximal tibia. No instrumentation loosening or migration. No subluxation. Alignment is anatomic. Complete bony union of the fra ctures is not identified. Stable mild narrowing of the medial joint damian rtment. Small suprapatellar joint effusion again identified. The previousl y noted air has resolved. Procedure Note Riki Eng - 04/24/2011 RIGHT KNEE AND LEFT KNEE 2 VIEWS 04/24/2011 INDICATION: Trauma. COMPARISON: Right knee and left knee 2 v iews 03/14/2011. RIGHT KNEE: Lateral plate and screw fixa tion of the distal right femur. No instrumentation loosening or migration. Comminuted fracture of the right femoral metadiaphysis again identified w ithout complete bony bridging. A fracture plane extends into the medial a spect of the medial condylar articular surface. This fracture plane i s better visualized than on the prior exam. Fragment alignment is anatom ic. The proximal tibia and fibula are intact. Stable moderate medial damian rtment osteophytic spurring. Right suprapatellar effusion again identified. The previously noted subcutaneous air has resolved. LEFT KNEE: Lateral plate and screw fixat ion of the distal femur and anterior medial plate and screw fixation of the proximal tibia. No instrumentation loosening or migration. No subluxation. Alignment is anatomic. Complete bony union of the fra ctures is not identified. Stable mild narrowing of the medial joint damian rtment. Small suprapatellar joint effusion again identified. The previousl y noted air has resolved. Satish JIMENEZ documented in this encounter Visit Diagnoses Diagnosis Tibial plateau fracture - Primary Closed fracture of upper end of tibia Closed fracture of condyle of left femur ([facility]C) Closed fracture of femoral condyle Closed fracture of condyle of right femu r ([facility]) Closed fracture of femoral condyle documented in this encounter
--- OUTSIDE RECORDS SUMMARY | 2022-06-20 02:30 | XMS_ITS | Encounter Summary ---
:1945 Author [facility] Address [address] [place] [address] Care Team Providers Name Role Phone Unavailable Primary Care Provider Unavailable Reason for Visit Reason Onset Date Comments QUESTIONS, GENERAL 09/13/2011 Encounter Details Date Type Department Care Team Description 09/13/2011 Telephone Specialty Center 401 Nina Johnson, QUESTIONS, GENERAL NeuroSurgery RN [address]. [address] [place] [address] [place] [address] [phone] (Wo rk) Social History Tobacco Use Types Packs/Day Years Used Date Smoking Tobacco: Never Smokeless Tobacco: Never Alcohol Use Standard Drinks/Week Comments No 0 (1 standard drink = 0.6 oz pure alcoho l) Sex Assigned at Date Recorded Male 08/06/2021 5:59 PM CDT documented as of this encounter Nursing Notes Selene Johnson RN - 09/13/2011 3:47 PM CDT Patients called explain that they have moved up the MRI's and will need to have Valium for prior to scans-prescription sent to pharmacy of choice. This blog writer did explain that once the MRI is completed will review and we will call with the plan.She did verbalize understanding.Selene Johnson RN 09/13/2011, 3:47 PM documented in this encounter Plan of Treatment Not on filedocumented as of this encounter Visit Diagnoses Not on filedocumented in this encounter
--- OUTSIDE RECORDS SUMMARY | 2022-06-20 02:30 | XMS_ITS | Encounter Summary ---
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
--- OUTSIDE RECORDS SUMMARY | 2022-06-20 02:30 | XMS_ITS | Encounter Summary ---
:1945 Author Organization [facility] Address [address] [place] [address] Care Team Providers Name Role Phone Unavailable Primary Care Provider Unavailable Reason for Visit Reason Onset Date Comments THERAPY ORDERS 03/20/2011 Encounter Details Date Type Department Care Team Description 03/20/2011 Telephone Specialty Center 401 May Randle MD THERAPY ORDERS Physical Medicine [address] [place] [address] [place] [address] [phone] Social History Tobacco Use Types Packs/Day Years Used Date Smoking Tobacco: Never Alcohol Use Standard Drinks/Week Comments No 0 (1 standard drink = 0.6 oz pure alcoho l) Sex Assigned at Date Recorded Male 08/06/2021 5:59 PM CDT documented as of this encounter Nursing Notes Cristy Carson RN - 03/21/2011 3:18 PM CDT I called to [facility] to be sure the pt will be scheduled. May Randle - 03/20/2011 10:29 PM CDT Order entered for wheelchair evaluation.Pt already has Hoverround which he uses outside of house butuses a manual wheelchair in the house and has never had an appropriate manual chair.Spends most of his time in the manual chair so needs appropriate width and seating-has lots of back pain . May Hanson MD documented in this encounter Plan of Treatment Not on filedocumented as of this encounter Visit Diagnoses Not on filedocumented in this encounter
--- OUTSIDE RECORDS SUMMARY | 2022-06-20 02:30 | XMS_ITS | Encounter Summary ---
:1945 Author [facility] Address [address] [place] [address] Care Team Providers Name Role Phone Unavailable Primary Care Provider Unavailable Encounter Details Date Type Department Care Team Description 10/02/2011 [facility] [address] [place] [id number] Social History Tobacco Use Types Packs/Day Years [...] Priority Date/Time Associated Diagnosis Comme nts XR PELVIS AP 1 VIEW Routine 10/02/2011 9:36 AM Re sults for this MENTAL HEALTH WORKER procedure are i n the results section. documented in this encounter Results XR PELVIS AP (10/02/2011 9:36 AM MENTAL HEALTH WORKER) Anatomical Region Laterality Modality Pelvis Computed Radiography Specimen (Source) Anatomical Collection Method Collection Time Re ceived Time Location / / Volume Laterality 10/02/2011 9:36 AM MENTAL HEALTH WORKER Narrative 10/02/2011 3:53 PM MENTAL HEALTH WORKER XR PELVIS AP 1VW Oct 02, 2011 09:36:00 AM INDICATION: Pain COMPARISON: None FINDINGS: Generalized osteopenia. No fra cture or dislocation Procedure Note Trae Blair - 10/02/2011Formatti ng of this note might be different from the original. XR PELVIS AP 1VW Oct 02, 2011 09:36:00 AM INDICATION: Pain COMPARISON: None FINDINGS: Generalized osteopenia. No fra cture or dislocation Satish Bowling MD RAD GD documented in this encounter Visit Diagnoses Not on filedocumented in this encounter
--- OUTSIDE RECORDS SUMMARY | 2022-06-20 02:30 | XMS_ITS | Encounter Summary ---
:1945 Author Organization [facility] Address [address], [place] [address] Care Team Providers Name Role Phone Garry Neff MD Primary Care Provider Encounter Details Date Type Department Care Team Description 08/07/2011 Orders Only [facility] Quan Ames, Unspecified 401 Endocrinology [facility] [address] (Primary Dx) [address] [place] [address] [place] [address] [phone] Social History Tobacco Use Types Packs/Day Years Used Date Smoking Tobacco: Never Smokeless Tobacco: Never Alcohol Use Standard Drinks/Week Comments No 0 (1 standard drink = 0.6 oz pure alcoho l) Sex Assigned at Date Recorded Male 08/06/2021 5:59 PM CDT documented as of this encounter Plan of Treatment Not on filedocumented as of this encounter Visit Diagnoses Diagnosis Osteoporosis, unspecified ([facility]) - Primar y Osteoporosis, unspecified documented in this encounter Care Teams Telegraph Office Route Aide Relationship Specialty Start Date End Date Garry Neff MD PCP - General Neurosurgery 04/24/12 04/14/[address] [place] [address] documented as of this encounter
--- OUTSIDE RECORDS SUMMARY | 2022-06-20 02:30 | XMS_ITS | Encounter Summary ---
:1945 Author Organization [email or web address] Address [address] [place] [address] Care Team Providers Name Role Phone Unavailable Primary Care Provider Unavailable Reason for Visit Reason Comments Revisit Spasticity Encounter Details Date Type Department Care Team Description 08/22/2011 Office Visit Specialty Center May Randle le spasticity (Primary Dx); 401 Physical Kirsten Clemente MD Paraplegia; [address] Neurogenic bladder; [place] [address] [place], [place] Neurogenic bowel; [phone] [id number] Osteoporosis; [phone] Depression (Work) Social History Tobacco Use Types Packs/Day Years Used Date Smoking Tobacco: Never Smokeless Tobacco: Never Alcohol Use Standard Drinks/Week Comments No 0 (1 standard drink = 0.6 oz pure alcoho l) Sex Assigned at Date Recorded Male 08/06/2021 5:59 PM CDT documented as of this encounter Last Filed Vital Signs Vital Sign Reading Time Taken Comments Blood Pressure 104/63 08/22/2011 9:40 AM CDT Pulse 99 08/22/2011 9:40 AM CDT Temperature - - Respiratory Rate - - Oxygen Saturation - - Inhaled Oxygen Concentration - - Weight 107 kg (235 lb 12.8 oz) 08/22/2011 9:40 AM CDT Height 177.8 cm (5' 10) 08/22/2011 9:40 AM CDT Body Mass Index 33.83 08/22/2011 9:40 AM CDT documented in this encounter Progress Notes May Randle - 08/22/2011 2:05 PM CDT is accompanied to clinic today by his . He seen in followup with concerns about both spasticity, back pain, neurogenic bowel and wheelchair positioning. Earlier this year he was hospitalized for surgical treatment of bilateral femoral condyle fractures and left tibia fracture. Last saw him he is also had hemorrhoidectomy for two larger than one smaller hemorrhoid. He has a history of thoracic ependymoma for a number of years and initially had his rehabilitation at [facility]. At that point he was still [...] of his positioning. He also has a power hoveraround which he uses out of [...] get a new manual chair which he now has. He reports his positioning in this chair is much better than in the old breezy wheelchair. Magda continue to have times when at feels as though his back cramps up. He is been taught some exercises for this and we reviewed today things that he can do while sitting in his chair if he is having discomfort. Overall he notes he is having less discomfort than in the past. He did at one point have an intrathecal baclofen pump placed through the [facility]. 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 When I initially saw him he was having significant difficulty with spasticity and when I last saw him we discussed considering replacement of the pump if we could not get spasticity managed with oral medications. He was noting spasms particularly in his trunk and less so in his legs. He had increased his baclofen to 120 mg daily and did not feel it was helping with the abdominal spasms. Of note however was thathe has recently been diagnosed with bilateral femoral condyle fractures as well as a left tibia fracture and was scheduled for surgery in early March. We discussed that this type of injury would indeed likely increase his spasms.we discussed some stretching that he could do an implemented a trial of Dantrium in addition to the baclofen . He and his but now both note that they are having minimal difficulty with spasticity. This is likely partially because he has had healing of the tibial fracturesas well as resolution of the hemorrhoid issues which would decrease the ongoing noxious stimulation.He does feel he may be weaker in his upper extremities although in discussion he is not been using his nu step the way he was previously for upper extremity conditioning nor has he been doing his upperextremity exercise program. He notes he is starting physical therapy again tomorrow as ordered by his primary care physician because of new onset of right shoulder pain. As noted below we have discussed that he is on a number of medications which may be affecting his [employer] and which may make him feel more tired or week. He continues to use Flexeril and we discussed that at this point he really likely is not benefiting from this and probably should not be on it. He now has a stander which he is also using daily and which is likely providing help with spasticityby providing prolonged stretch. It should also be helpful with his bowel program. He is using this about a half hour per day. He notes that his emr specialist placed him on Fosamax however they have determine they do not wanthim to be on this because of concerns about side effects and will investigate other things he might try. One of his physicians did place him on teststosaterone replacement . His bladder is drained via catheter indwelling. He has seen a urologist in the past and follows withhis primary care physician and they feel he has had a fairly recent CT of the abdomen which looks athis kidneys and bladder. He has had no recent infections. Bowel program is accomplished every other day using mini enema as well as senna s. There are noting more difficulty with his bowel program since his hemorrhoidectomy. He is using senna daily. He is using MiraLAX every other day. They are using mini enemeez and at time dig stim. We have discussed that he would benefit more from taking the MiraLAX on an ongoing basis even though his bowel program is every other day. He has found briana oil to be effective however we discussed some of the concerns withthis. I suggested he try Dulcolax tablets 1-2 the night before his bowel program to see if this is more helpful. He is eating something before his bowel program which may be helpful as well He did see his orthopedic physician recently because of some redness around one of his pin sites andis presently on Keflex. He notes he has up and down days in terms of mood particularly when he cannot do the things he used to do. Is noted that his physician recently changed him from Celexa to Zoloft. He does continue to take lorazepam which is at the present however we have talked about changing one medication at the timebut certainly thinking about weaning off the lorazepam at some point in the future. 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 It also showed evidence of mild bilateral greater trochanter or status versus mild tenderness strain at the gluteal insertions. Additionally there was mild edema within the iliac is muscles bilaterally right greater than left probably secondary to mild muscle strain. I He is generally sleeping and eating well. [...] apparently for anemia. His primary care physician isDr. Loretta GOSS at [facility] in [facility]. Past Medical History Diagnosis Date ??? Ependymoma 1999 S/p resection by Dr. Glasgow at [place] in 05/2000. However resection was incomplete due [...] 1 at baseline. Lives with his in [place]. Family History Problem Relation Age of Onset [...] drained via indwelling catheter 4) neurogenic bowel 5) history of intrathecal baclofen pump 6) [...] of baclofen at 120 mg daily I suggested beginning with this decreasing by 10- 20 mg every 5-7 days until he gets to 20 mg 3 times a day or 4 times a day. If spasticity increases this means we need to go back up on the dose. If he did not note any change we will continue to work on weaning. A. this means we do not need to think align intrathecal baclofen pump at this point 2) continue on the Dantrium 3) starting outpatient therapy and stretching program 4) continue stander, NuStep, and upper extremity strengthening program 5) change MiraLAX to daily dosing 6) trial of Dulcolax tablets 1-2 per os on the night prior to his bowel program 7) strongly consider weaning off of Flexeril 8) consider weaning lorazepam at some point in the future 9) he will be scheduled back in three months however I I have asked him to call sooner if they have any questions 30/40 of today's minutes spent in education, counseling, and coordination of care. documented in this encounter Plan of Treatment Not on filedocumented as of this encounter Visit Diagnoses Diagnosis Muscle spasticity - Primary Spasm of muscle Paraplegia (HRC) Paraplegia Neurogenic bladder Neurogenic bladder, NOS Neurogenic bowel Osteoporosis (HRC) Osteoporosis, unspecified Depression Depressive disorder, not elsewhere class ified documented in this encounter
--- OUTSIDE RECORDS SUMMARY | 2022-06-20 02:30 | XMS_ITS | Encounter Summary ---
:1945 Author Organization [employer] [facility] Address [address] [place] [address] Care Team Providers Name Role Phone Unavailable Primary Care Provider Unavailable Reason for Visit Reason Comments Revisit Paraplegia Encounter Details Date Type Department Care Team Description 05/30/2011 Office Visit Specialty Center May Randle ticity (Primary Dx); 401 Physical Kirsten Clemente MD Paraplegia; [address] Neurogenic bladder; [place] [address] [place], [place] DVT (deep venous thrombosis) ; [phone] Ependymoma Social History Tobacco Use Types Packs/Day Years Used Date Smoking Tobacco: Never Smokeless Tobacco: Never Alcohol Use Standard Drinks/Week Comments No 0 (1 standard drink = 0.6 oz pure alcoho l) Sex Assigned at Date Recorded Male 08/06/2021 5:59 PM CDT documented as of this encounter Last Filed Vital Signs Vital Sign Reading Time Taken Comments Blood Pressure 134/79 05/30/2011 10:31 AM CDT Pulse 77 05/30/2011 10:31 AM CDT Temperature - - Respiratory Rate - - Oxygen Saturation - - Inhaled Oxygen Concentration - - Weight - - Height - - Body Mass Index - - documented in this encounter Progress Notes May Randle - 05/30/2011 6:29 PM CDT is accompanied to clinic today by his . He seen in followup of recent clinic visit with concerns about both spasticity, back pain, and wheelchair positioning. Since I last saw him he washospitalized for surgical treatment of bilateral femoral condyle fractures and left tibia fracture. He has a history of thoracic ependymoma for a number of years and initially had his rehabilitation at [facility]. At that point he was still ambulatory and was discharged with a Breezy manual wheelchair. He did not need customized seating because he essentially used a wheelchair for transportation. Over the ensuing years he has become progressively less mobile and now does not [...] in a recliner in the evening . He did at one point have an intrathecal baclofen pump placed through the [facility]. Last year he developed meningitis and did have the catheter removed. He was noting spasms particularly in his [...] Dantrium in addition to the baclofen . As noted he subsequently had his surgery in continues in outpatient therapy twice weekly at [facility]. While he was in the hospital he was evaluated by physical therapy for appropriate wheelchair positioning as it was felt that he needed something more supportive to spend his day in. They did fully evaluate him and had him trying in-home power wheelchair however they did not feel that he can be mobile enough in the home with this and has chosen to pursue a new chair with more supportive seating. Nicky plans to be evaluated as well for a stander and is using a nu step now in. physical therapy. He is continuing to complain particularly of abdominal spasms and we have discussed increasing his Dantrium. If this is not use full they are open to considering again trying an intrathecal baclofen pump as they felt he had much better relief of spasticity with the pump. His bladder is drained via catheter indwelling. He has seen a urologist in the past and follows withhis primary care physician and they feel he has had a fairly recent CT of the abdomen which looks athis kidneys and bladder. He has had no recent infections. Bowel program is accomplished every other day using mini enema as well as senna s. . 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 It also showed evidence of mild bilateral greater trochanter or status versus mild tenderness strain at the gluteal insertions. Additionally there was mild edema within the iliac is muscles bilaterally right greater than left probably secondary to mild muscle strain. I He is generally sleeping and eating well. irs. He has a history of mass a bilateral deep vein thrombosis and does remain on Coumadin. He has a history of anxiety for which he was on Ativan. His is now home through the day whereaspreviously she had been at work and he is trying to wean off of the Ativan. They do not have any other health in the home. They periodically seek out physical therapy for specific needs. They do have an easy stand for standing which he had been using intermittently but now will resume using in the future. We did discuss it this is an excellent way to provide stretch and decrease spasms once the fracture issues have been resolved. He transfers via sliding board and does need the assistance of his . She also helps him in the shower. He has a roll in shower and a bench that he transfers to. He has recently had a colonoscopy and endoscopy apparently for anemia. His primary care physician isDr. Loretta GOSS and [facility]. Past Medical History Diagnosis Date ??? Ependymoma 1999 S/p resection by Dr. Glasgow at [place] in 05/2000. However resection was incomplete due [...] Drugs) Rash ??? Oxycodone Other Delirium History Current outpatient prescriptions Medication Sig ??? acetaminophen (AKA TYLENOL) 325 MG tablet Take 2 Tabs by mouth every 6 hours as needed for Pain. ??? atorvastatin (LIPITOR) 40 MG tablet Take 1 Tab by mouth daily. ??? baclofen (AKA LIORESAL) 20 MG tablet Take 40 mg by mouth three times a day. ??? calcitonin, salmon, (AKA MIACALCIN) 200 UNIT/ACT nasal solution 1 [place] by Alternating nostrils route daily. ??? Calcium-Vitamin D (CALTRATE 600 PLUS-VIT D OR) Take 2 Caps by mouth daily. ??? cholecalciferol (AKA VITAMIN D3) 1000 UNIT tablet Take 1,000 Units by mouth daily. ??? citalopram (AKA CELEXA) 40 MG tablet Take 40 mg by mouth daily. ??? cyclobenzaprine (AKA FLEXERIL) 10 MG tablet Take 1 Tab by mouth two times a day. ??? dantrolene (DANTRIUM) 25 MG capsule Take 2 Caps by mouth two times a day. For 2 weeks then 2 three times a day ??? enoxaparin 100 MG/ML SOLN injection Inject 100 mg subcutaneously every 12 hours. Continue injections until INR 2-3 for 2 days. ??? furosemide (AKA LASIX) 40 MG tablet Take 40 mg by mouth daily as needed. ??? LORazepam (AKA ATIVAN) 0.5 MG tablet Take 2 Tabs by mouth three times a day. ??? magnesium hydroxide (AKA MILK OF MAGNESIA) 400 MG/5ML suspension Take 30 mL by mouth daily as needed for Constipation. ??? polyethylene glycol (AKA MIRALAX) packet Take 17 g by mouth daily. ??? potassium chloride (AKA KLOR-CON) 10 MEQ controlled release tablet Take 20 mEq by mouth. Takes 1-2 tabs daily prn. ??? sennosides-docusate sodium (AKA SENNA-S,SENNA PLUS) 8.6-50 MG tablet Take 3 Tabs by mouth daily at bedtime. ??? TRIMETHOPRIM OR Take 100 mg by mouth daily. ??? warfarin (AKA COUMADIN) 5 MG tablet Take 2 Tabs by mouth daily. Adjust dose based on INR result as directed, goal INR 2-3 Social History ??? Marital Status: Spouse Name: [...] 1 at baseline. Lives with his in [place]. Family History Problem Relation Age of Onset ??? Cancer, Colon Mother ??? Cancer, Other Brother brother with throat cancer ??? Cancer, Breast Sister Additional review of systems: . It is noted that he actually had his intrathecal baclofen pump from December of 2006 to summer On examination: Examination reveals an older male in no acute distress. He is alert and oriented x4.. He has excellent upper extremity range of motion and strength. He has a sensory demarcation above the nipple level and does not have sensation below this. Skin is intact where observed. He does have some lower extremity edema Tone is increased in the lower extremities Rebeca 2+-3. There several beats of clonus at both ankles. Deep tendon reflexes are brisk. 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 If not they are opento considering replacing the intrathecal baclofen pump 2) continue on the baclofen 3) continue outpatient therapy and stretching program 4) as noted above we are pursuing appropriate seating for him 5) resume stander when approved by orthopedics 6) continue his regular bowel program 9) he will be scheduled back in three months however I I have asked him to call sooner if they are not noticing any improvement with his spasms 20/25 of today's minutes spent in education, counseling, and coordination of care. documented in this encounter Plan of Treatment Not on filedocumented as of this encounter Visit Diagnoses Diagnosis Spasticity - Primary Abnormal involuntary movements Paraplegia (HRC) Paraplegia Neurogenic bladder Neurogenic bladder, NOS DVT (deep venous thrombosis) (HRC) Acute venous embolism and thrombosis of unspecified deep vessels of lower extremity 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, unspecified site documented in this encounter
--- OUTSIDE RECORDS SUMMARY | 2022-06-20 02:30 | XMS_ITS | Encounter Summary ---
:1945 Author [facility] Address [address] [place] [address] Care Team Providers Name Role Phone Unavailable Primary Care Provider Unavailable Encounter Details Date Type Department Care Team Description [facility] Center MRI (Primary Dx) [address] [place] [address] Social History Tobacco Use Types [...] Associated Diagnosis Comme nts CREATININE/GFR, WB Routine 05/24/2011 1:43 PM Screening for Re sults for this POC CDT nephropathy procedure are i n the results section. MR THORACIC SPINE Routine 05/24/2011 10:19 AM Res ults for this W/WO IV CONT CDT procedure are i n the results section. documented in this encounter Results CREATININE/GFR, WB POC (05/24/2011 1:43 PM CDT) P athologist Signature Creat Whole 1.1 0.66 - [facility] Blood 1.25 mg/dl GFR, Estimated >60.0 >60 [facility] ml/min/1.7 3m2 GFR, Est., If >60.0 >60 [facility] Black ml/min/1.7 3m2 Specimen Anatomical Collection Method Collection Time Receive d Time (Source) Location / / Volume Laterality 05/24/2011 1:43 PM 1 2:18 CDT PM CDT Radames Sanders MD LAB_1 Performing Organization Address City/State/ZIP Code Phon e Number [facility] [phone] [address] MR THORACIC SPINE WITH/WITHOUT CONTRAST (05/24/2011 10:19 AM CDT) Anatomical Region Laterality Modality Spine, T-Spine, L-Spine, C-Spine, Skeletal Magnetic Resonance Specimen (Source) Anatomical Collection Method Collection Time Re ceived Time Location / / Volume Laterality 05/24/2011 10:19 AM CDT Narrative 05/24/2011 3:18 PM CDT MRI THORACIC SPINE [facility] 05/24/2001. INDICATION: Follow up thoracic tumor res ection. TECHNIQUE: Routine thoracic protocol wit hout and with gadolinium. Gadolinium 20 mg IV. COMPARISON: Most recent MR thoracic spin e 02/08/2011. FINDINGS: Postoperative changes from upper thoraci c laminectomies from approximately T2-T6 levels. Atrophic changes involving the visualized lower cervical cord and upper thoracic cord to the T2 level where the cord appears somewhat adherent posteriorly, all stable from pr ior exam. The spinal cord is not clearly identified from the lower aspect of T2-T5 unchanged from prior study and may be severely atrophic. This is stable. No evidence for recurrent enhancing lesion at the surgic al site. The appearance of the lower thoracic spi nal cord has not clearly changed from 02/08/2011. The thoracic cord from T 5 through approximately T10 is also somewhat atrophic. There is stable abno rmal signal within the distal cord and conus medullaris which is nonspecifi c. This does not enhance. The postoperative fluid collections in t he posterior paraspinal tissues at the previous thoracic laminectomy sites has decreased mildly in size from 02/08/2011. Again seen are post radiation changes in the upper thoracic vertebral bodies stable from prior exam. CONCLUSION: 1. Again seen are postop changes from ap proximately T2-T6 thoracic laminectomies for reported tumor resecti on. Nothing to suggest recurrent tumor at the surgical site. 2. Slight decrease in the peripherally e nhancing fluid collections in the laminectomy bed posterior to the spine. 3. Stable atrophic changes involving sig nificant portions of the spinal cord including the low cervical and uppe r thoracic as well as the mid portion of the thoracic spinal cord. Sta ble apparent marked atrophic changes involving the upper thoracic cor d at the laminectomy levels. 4. Stable nonenhancing signal changes in the distal cord which is indeterminate. Procedure Note Harshad Browne - 05/24/2011 MRI THORACIC SPINE [facility] 05/24/2001. INDICATION: Follow up thoracic tumor res ection. TECHNIQUE: Routine thoracic protocol wit hout and with gadolinium. Gadolinium 20 mg IV. COMPARISON: Most recent MR thoracic spin e 02/08/2011. FINDINGS: Postoperative changes from upper thoraci c laminectomies from approximately T2-T6 levels. Atrophic changes involving the visualized lower cervical cord and upper thoracic cord to the T2 level where the cord appears somewhat adherent posteriorly, all stable from pr ior exam. The spinal cord is not clearly identified from the lower aspect of T2-T5 unchanged from prior study and may be severely atrophic. This is stable. No evidence for recurrent enhancing lesion at the surgic al site. The appearance of the lower thoracic spi nal cord has not clearly changed from 02/08/2011. The thoracic cord from T 5 through approximately T10 is also somewhat atrophic. There is stable abno rmal signal within the distal cord and conus medullaris which is nonspecifi c. This does not enhance. The postoperative fluid collections in t he posterior paraspinal tissues at the previous thoracic laminectomy sites has decreased mildly in size from 02/08/2011. Again seen are post radiation changes in the upper thoracic vertebral bodies stable from prior exam. CONCLUSION: 1. Again seen are postop changes from ap proximately T2-T6 thoracic laminectomies for reported tumor resecti on. Nothing to suggest recurrent tumor at the surgical site. 2. Slight decrease in the peripherally e nhancing fluid collections in the laminectomy bed posterior to the spine. 3. Stable atrophic changes involving sig nificant portions of the spinal cord including the low cervical and uppe r thoracic as well as the mid portion of the thoracic spinal cord. Sta ble apparent marked atrophic changes involving the upper thoracic cor d at the laminectomy levels. 4. Stable nonenhancing signal changes in the distal cord which is indeterminate. Garry Neff MD RAD MRI documented in this encounter Visit Diagnoses Diagnosis Screening for nephropathy - Primary documented in this encounter
--- OUTSIDE RECORDS SUMMARY | 2022-06-20 02:30 | XMS_ITS | Encounter Summary ---
:1945 [facility] Address [address], [place] [address] Care Team Providers Name Role Phone Garry Neff MD Primary Care Provider Encounter Details Date Type Department Care Team Description 08/10/2011 Orders Only [facility] Quan Ames, Osteoporosis (Primary Dx); 401 Endocrinology Hyperparathyroidism; Clinic 401 [facility] Vitamin D deficiency [address] [place] [address] [place], [place] [id number] [phone] Social History Tobacco Use Types Packs/Day Years [...] Diagnosis Osteoporosis (HRC) - Primary Osteoporosis, unspecified Hyperparathyroidism (HRC) Hyperparathyroidism, unspecified Vitamin D deficiency (HRC) Unspecified vitamin D deficiency documented in this encounter Care Teams Enrolled Agent Relationship Specialty Start Date End Date Garry Neff MD PCP - General Neurosurgery 04/24/12 04/14/13 [address] [place], [place] [id number] documented as of this encounter
--- OUTSIDE RECORDS SUMMARY | 2022-06-20 02:30 | XMS_ITS | Encounter Summary ---
:1945 Author Organization [facility] Address [address], [place] [address] Care Team Providers Name Role Phone Unavailable Primary Care Provider Unavailable Encounter Details Date Type Department Care Team Description 06/18/2011 Therapy External to Physical Therapy, Provider Social History Tobacco Use Types Packs/Day Years Used Date Smoking Tobacco: Never Smokeless Tobacco: Never Alcohol Use Standard Drinks/Week Comments No 0 (1 standard drink = 0.6 oz pure alcoho l) Sex Assigned at Date Recorded Male 08/06/2021 5:59 PM CDT documented as of this encounter Progress Notes Interface, In Chrtscr And Scan - 07/04/2011 8:47 AM CDT documented in this encounter Plan of Treatment Not on filedocumented as of this encounter Visit Diagnoses Not on filedocumented in this encounter
--- OUTSIDE RECORDS SUMMARY | 2022-06-20 02:30 | XMS_ITS | Encounter Summary ---
:1945 Author Organization [facility] Address [address] [address] Care Team Providers Name Role Phone Unavailable Primary Care Provider Unavailable Reason for Visit Reason Comments Refill Encounter Details Date Type Department Care Team Description 07/19/2011 Refill [facility] 401 May Randle MD Refill Physical Medicine [address] [place] [address] [place] [address] [phone] Social History Tobacco Use Types Packs/Day Years Used Date Smoking Tobacco: Never Smokeless Tobacco: Never Alcohol Use Standard Drinks/Week Comments No 0 (1 standard drink = 0.6 oz pure alcoho l) Sex Assigned at Date Recorded Male 08/06/2021 5:59 PM CDT documented as of this encounter Nursing Notes Cristy Carsno RN - 08/06/2011 4:58 PM CDT Duplicate, baclofen was filled 07/19 per pt request, pharmacy request came afterwards. documented in this encounter Plan of Treatment Not on filedocumented as of this encounter Visit Diagnoses Not on filedocumented in this encounter
--- OUTSIDE RECORDS SUMMARY | 2022-06-20 02:30 | XMS_ITS | Encounter Summary ---
:1945 Author Organization [employer] Address [address] [address] Care Team Providers Name Role Phone Unavailable Primary Care Provider Unavailable Reason for Visit Reason Onset Date Comments REFERRAL REQUEST 10/02/2011 Encounter Details Date Type Department Care Team Description 10/02/2011 Telephone Specialty Center 401 May Randle MD REFERRAL REQUEST Physical Medicine [address] [place] [address] [place] [address] [phone] Social History Tobacco Use Types Packs/Day Years Used Date Smoking Tobacco: Never Smokeless Tobacco: Never Alcohol Use Standard Drinks/Week Comments No 0 (1 standard drink = 0.6 oz pure alcoho l) Sex Assigned at Date Recorded Male 08/06/2021 5:59 PM CDT documented as of this encounter Nursing Notes Linda Dwyer - 10/03/2011 12:35 PM CST Called Jacquelyn and told her order placed and will be fax to [facility]. Gave her phone number to callto make appointment for eval. Order faxed to Jeffrey Acevedo at [phone]. May Bridges - 10/02/2011 6:31 PM CST Order entered-please print and send. May Randle MD IGURATION RELEASE MANAGER Linda Dwyer - 10/02/2011 3:26 PM CST Patient's called and would like to get a referral to [facility] for patient's seat and back cushion. Please review and call her back at [phone]. IGURATION RELEASE MANAGER documented in this encounter Plan of Treatment Not on filedocumented as of this encounter Visit Diagnoses Diagnosis Paraplegia (HRC) Paraplegia Back pain Backache, unspecified documented in this encounter
--- OUTSIDE RECORDS SUMMARY | 2022-06-20 02:30 | XMS_ITS | Encounter Summary ---
:1945 Author Organization [facility] Address [address] [place] [address] Care Team Providers Name Role Phone Unavailable Primary Care Provider Unavailable Encounter Details Date Type Department Care Team Description 09/18/2011 [facility] MRI [address] [place] [address] Social History Tobacco Use Types Packs/Day Years [...] Diagnosis Comme nts MR THORACIC SPINE Routine 09/18/2011 1:38 PM Resu lts for this W/WO IV CONT METAL FABRICATING SHOP HELPER procedure are i n the results section. documented in this encounter Results MR THORACIC SPINE WITH/WITHOUT CONTRAST (09/18/2011 1:38 PM METAL FABRICATING SHOP HELPER) Anatomical Region Laterality Modality Spine, T-Spine, L-Spine, C-Spine, Skeletal Magnetic Resonance Specimen (Source) Anatomical Collection Method Collection Time Re ceived Time Location / / Volume Laterality 09/18/2011 1:38 PM METAL FABRICATING SHOP HELPER Narrative 09/19/2011 3:59 PM METAL FABRICATING SHOP HELPER [facility] THORACIC SPINE MRI LUMBAR SPINE MRI 09/18/2011 [...] disease. Procedure Note Julien Anna - 09/20/2011 [facility] THORACIC SPINE MRI LUMBAR SPINE MRI 09/18/2011 [...]
--- OUTSIDE RECORDS SUMMARY | 2022-06-20 02:30 | XMS_ITS | Encounter Summary ---
:1945 Author Organization [facility] Address [address] [place] [address] Care Team Providers Name Role Phone Unavailable Primary Care Provider Unavailable Reason for Visit Reason Comments Follow-up, NOS LT knee, red spot around HW site Encounter Details Date Type Department Care Team Description 08/14/2011 Office Visit [facility] Satish Espianl Cellulitis (Primary Orthopedics MD Bryn Dx) [address] [place] [address] [place], [place] [phone] Social History Tobacco Use Types Packs/Day Years [...] - - Weight 104.3 kg (230 lb) 08/14/2011 9:39 AM CDT Height - - Body Mass Index 33 05/24/2011 10:28 AM CDT documented in this encounter Patient Instructions Patient InstructionsMalathi Martinez LPN - 08/14/2011 10:26 AM CDT Follow up with Dr. Bowling in 1 month if your symptoms are not better . NO xrays needed at that time Prescription for Keflex printed and given to patient to take with them today. The appointments listed below will be at: ( ) [facility] - [address] [place] [address] in [place], [place] ( ) [facility] - [address] [facility] in [place], [place] ( ) Other: Your next appointment for getting x-rays is on at . Your next appointment with Orthopaedics is on at with documented in this encounter Progress Notes Satish Bowling - 08/14/2011 10:33 AM CDT Carl Cullen is a 66-year-old history of paraplegia and a distal femur and tibial plateau fracture on the left side. He underwent fixation about five months ago and seem to go on to healing. He presents now with a one-month of a subtle but increasing erythema in the lateral aspect of the left leg. He said minimal swelling there and no pain but he generally does not feel in this area. Is no other notable changes in his is medical family social history. No history of trauma to this area that hecan discern. On examination he is alert oriented usual mood and affect and in no acute distress his heart has regular rate and rhythm respirations are regular and unlabored eyes are nonicteric and reactive. He seated in his wheelchair. His left leg there seems to be some slight swelling mild warmth in this area and subtle erythema lateral aspect of the knee. I cannot appreciate any effusion or any fluctuance. Palpating the knee and the patient's insensate essentially and the hardware is not palpable. There are no open wounds on that I can detect tear. Impression that this is a to be a mild cellulitis or mechanical irritation of his hardware is becoming dislodged or another fracture has occurred. We obtained AP lateral edges of the knee which seemed essentially unchanged from x-rays taken four months earlier and show that the fractures are in stableposition in the hardware position is also unchanged. This was can also be mechanical irritation fromthe posterior flange of the plate which occurs not uncommonly. We will give him some antibiotics to to cover possibility of infection although he said no fevers chills night sweats or any other similarsymptoms. The like to see him back after the antibiotic seven taken to see if there is any improvement. Certainly if she worsens or show signs of becoming L. such as fevers chills nausea etc. then he should be evaluated again by physician such as his primary care doctor or myself for. I have answered his questions. documented in this encounter Plan of Treatment Not on filedocumented as of this encounter Results XR KNEE AP/LAT 2 VIEWS LEFT (08/14/2011 10:01 AM CDT) Anatomical Region Laterality Modality Lower Extremity, Knee Computed Radiograp hy Specimen (Source) Anatomical Collection Method Collection Time Re ceived Time Location / / Volume Laterality 08/14/2011 10:01 AM CDT Narrative 08/14/2011 2:02 PM CDT XR KNEE AP/LAT 2VWS LT Aug 14, 2011 10:01:00 AM INDICATION: Pain. ?? FINDINGS: Anterolateral distal left femo ral plate and screw fixation. Anteromedial proximal tibial plate and s crew fixation. No instrumentation loosening or migration. Stable bony alig nment. The previously noted femoral and tibial fracture planes are less dis tinct consistent with continued interval healing. No acute fracture or s ubluxation. Procedure Note Riki Eng - 08/14/2011 XR KNEE AP/LAT 2VWS LT Aug 14, 2011 10:01:00 AM INDICATION: Pain. FINDINGS: Anterolateral distal left femo ral plate and screw fixation. Anteromedial proximal tibial plate and s crew fixation. No instrumentation loosening or migration. Stable bony alig nment. The previously noted femoral and tibial fracture planes are less dis tinct consistent with continued interval healing. No acute fracture or s ubluxation. Satish Bowling MD RAD GD documented in this encounter Visit Diagnoses Diagnosis Cellulitis - Primary Cellulitis and abscess of unspecified si te documented in this encounter
--- OUTSIDE RECORDS SUMMARY | 2022-06-20 02:30 | XMS_ITS | Encounter Summary ---
:1945 Author Organization [facility] Address [address] [place] [address] Care Team Providers Name Role Phone Unavailable Primary Care Provider Unavailable Encounter Details Date Type Department Care Team Description 10/30/2011 Imaging [facility] Specialty Center [address] [place] [address] Social History Tobacco Use Types [...] Priority Date/Time Associated Diagnosis Comme nts XR SHOULDER RT Routine 10/30/2011 10:22 AM Result s for this AP/Y/AXILLARY FLIGHT ATTENDANT/INFLIGHT SUPERVISOR procedure are in the results section. documented in this encounter Results RT SHOULDER GRASHEY/AX/OUTLET [[id number]] (10/30/2011 10:22 AM FLIGHT ATTENDANT/INFLIGHT SUPERVISOR) Anatomical Region Laterality Modality Upper Extremity, Shoulder Computed Radio graphy Specimen (Source) Anatomical Collection Method Collection Time Re ceived Time Location / / Volume Laterality 10/30/2011 10:22 AM FLIGHT ATTENDANT/INFLIGHT SUPERVISOR Narrative 10/30/2011 8:29 PM FLIGHT ATTENDANT/INFLIGHT SUPERVISOR RIGHT SHOULDER 3 VIEWS 10/30/2011 INDICATION: Shoulder pain. FINDINGS: No evidence of fracture or dis location. Small area of calcification in the distal portion like ly of the infraspinatus tendon. Procedure Note Boy Lugo - 10/30/2011Formatti ng of this note might be different from the original. RIGHT SHOULDER 3 VIEWS 10/30/2011 INDICATION: Shoulder pain. FINDINGS: No evidence of fracture or dis location. Small area of calcification in the distal portion like ly of the infraspinatus tendon. George CRAWFORD GD documented in this encounter Visit Diagnoses Not on filedocumented in this encounter
--- OUTSIDE RECORDS SUMMARY | 2022-06-20 02:30 | XMS_ITS | Encounter Summary ---
:1945 Author Organization [facility] Address [address], [place] [address] Care Team Providers Name Role Phone Unavailable Primary Care Provider Unavailable Encounter Details Date Type Department Care Team Description 09/05/2011 Therapy [facility] 401 May Randle MD Physical Medicine [address] [place] [address] [place] [address] [phone] Social History Tobacco Use Types Packs/Day Years Used Date Smoking Tobacco: Never Smokeless Tobacco: Never Alcohol Use Standard Drinks/Week Comments No 0 (1 standard drink = 0.6 oz pure alcoho l) Sex Assigned at Date Recorded Male 08/06/2021 5:59 PM CDT documented as of this encounter Progress Notes May Randle - 09/17/2011 6:59 AM HYDRAULIC OPERATOR AULIC OPERATOR documented in this encounter Plan of Treatment Not on filedocumented as of this encounter Visit Diagnoses Not on filedocumented in this encounter
--- OUTSIDE RECORDS SUMMARY | 2022-06-20 02:30 | XMS_ITS | Encounter Summary ---
:1945 [facility] Address [address] [address] Care Team Providers Name Role Phone Unavailable Primary Care Provider Unavailable Encounter Details Date Type Department Care Team Description 05/24/2011 Correspondence [facility] Radiology, MRI SAFETY SHEET [address] [facility] [place] [address] Social History Tobacco Use Types Packs/Day Years Used Date Smoking Tobacco: Never Smokeless Tobacco: Never Alcohol Use Standard Drinks/Week Comments No 0 (1 standard drink = 0.6 oz pure alcoho l) Sex Assigned at Date Recorded Male 08/06/2021 5:59 PM CDT documented as of this encounter Progress Notes [facility], PROVIDER - 05/31/2011 8:53 AM CDT documented in this encounter Plan of Treatment Not on filedocumented as of this encounter Visit Diagnoses Not on filedocumented in this encounter
--- OUTSIDE RECORDS SUMMARY | 2022-06-20 02:30 | XMS_ITS | Encounter Summary ---
:1945 Author Organization [facility] Address [address] [place] [address] Care Team Providers Name Role Phone Unavailable Primary Care Provider Unavailable Reason for Visit Reason Comments FOLLOW-UP, TEST RESULTS Encounter Details Date Type Department Care Team Description 05/24/2011 Office Visit Specialty Center Garry Neff Epsalome ndymoma (Primary 401 NeuroSurgery X, Dx) [address] [place] [address] [place], [place] [phone] (Wo rk) Social History Tobacco Use Types Packs/Day Years Used Date Smoking Tobacco: Never Smokeless Tobacco: Never Alcohol Use Standard Drinks/Week Comments No 0 (1 standard drink = 0.6 oz pure alcoho l) Sex Assigned at Date Recorded Male 08/06/2021 5:59 PM CDT documented as of this encounter Last Filed Vital Signs Vital Sign Reading Time Taken Comments Blood Pressure 108/68 05/24/2011 10:28 AM CDT Pulse 80 05/24/2011 10:28 AM CDT Temperature 36.4 ??C (97.5 ??F) 05/24/2011 10:28 AM CDT Respiratory Rate 20 05/24/2011 10:28 AM CDT Oxygen Saturation - - Inhaled Oxygen Concentration - - Weight 105.7 kg (233 lb) 05/24/2011 10:28 AM CDT Height 177.8 cm (5' 10) 05/24/2011 10:28 AM CDT Body Mass Index 33.43 05/24/2011 10:28 AM CDT documented in this encounter Patient Instructions Patient InstructionsSelene Johnson RN - 05/24/2011 12:16 PM CDT Neurosurgery/Spine Clinic Patient Instructions You will be scheduled for a lumbar and thoracic MRI. Follow up with Dr. Garry Neff in 5 months. Please call in 2 months to schedule this appointment If tests were ordered, they will [...] understanding. Please call the Neurosurgery/Spine Clinic at [phone] with any further questions or concerns. documented in this encounter Progress Notes Garry Neff X - 06/29/2011 2:47 PM CDT I, Lucy Parker PA-C, am acting as a auto dealer for Dr. Neff, I am transcribing directly from notes Dr. Neff took during the clinic visit This is a dictation on Carl Cullen is a 66 yr old male [id number] 1945 Chief Complaint: Followup thoracic ependymoma Carl Cullen is a 66 yr old male presents today for a follow up visit. 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 On May 09, 2010 we replaced the catheter of the baclofen pump due to meningitis. On May 29, 2010 we removed the baclofen pump and catheter and pt was then placed on IV abx for 10 days following the procedure. Patient is here today to discuss recent thoracic MRI Objective: BP 108/68 Pulse 80 Temp(Src) 97.5 ??F (36.4 ??C) (Oral) Resp 20 Ht 5' 10 (1.778 m) Wt 233lb (105.688 kg) BMI 33.43 kg/m2 Thoracic MRI: 1. Again seen are postop changes from approximately T2-T6 thoracic laminectomies for reported tumor resection. Nothing to suggest recurrent tumor at the surgical site. 2. Slight decrease in the peripherally enhancing fluid collections in the laminectomy bed posterior to the spine. 3. Stable atrophic changes involving significant portions of the spinal cord including the low cervical and upper thoracic as well as the mid portion of the thoracic spinal cord. Stable apparent marked atrophic changes involving the upper thoracic cord at the laminectomy levels. 4. 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 On May 09, 2010 we replaced the catheter of the baclofen pump due to meningitis. On May 29, 2010 we removed the baclofen pump and catheter and pt was then placed on IV abx for 10 days following the procedure Plan Pt was seen and evaluate by Dr. Neff Recommend followup in 5 months please call in 2-3 months to schedule this appointment Dr. Neff discussed the plan in full with pt and answered all questions Lucy Contracts Officer PA-C This note created using speech-recognition software and may contain unintended word substitutions. Agree with above Garry Neff MD documented in this encounter Plan of Treatment Not on filedocumented as of this encounter Results MR LUMBAR SPINE WITH/WITHOUT CONTRAST (09/18/2011 1:39 PM ELEMENTARY SCHOOL TEACHER) Anatomical Region Laterality Modality Spine, L-Spine, Skeletal Magnetic Resona nce Specimen (Source) Anatomical Collection Method Collection Time Re ceived Time Location / / Volume Laterality 09/18/2011 1:39 PM ELEMENTARY SCHOOL TEACHER Narrative 09/19/2011 3:59 PM ELEMENTARY SCHOOL TEACHER [facility] THORACIC SPINE MRI LUMBAR SPINE MRI 09/18/2011 [...] disease. Procedure Note Julien Anna - 09/20/2011 [facility] THORACIC SPINE MRI LUMBAR SPINE MRI 09/18/2011 [...] tic disease. Garry Neff MD RAD MRI MR THORACIC SPINE WITH/WITHOUT CONTRAST (09/18/2011 1:38 PM ELEMENTARY SCHOOL TEACHER) Anatomical Region Laterality Modality Spine, T-Spine, L-Spine, C-Spine, Skeletal Magnetic Resonance Specimen (Source) Anatomical Collection Method Collection Time Re ceived Time Location / / Volume Laterality 09/18/2011 1:38 PM ELEMENTARY SCHOOL TEACHER Narrative 09/19/2011 3:59 PM [facility] THORACIC SPINE MRI LUMBAR SPINE MRI 09/18/2011 [...] disease. Procedure Note Julien Anna - 09/20/2011 [facility] THORACIC SPINE MRI LUMBAR SPINE MRI 09/18/2011 [...] evidence of leptomeningeal metasta tic disease. Garry X Neff MD RAD MRI documented in this encounter Visit Diagnoses Diagnosis Ependymoma (HRC) - Primary Malignant neoplasm of brain, unspecified site Screening for nephropathy - Primary documented in this encounter
--- OUTSIDE RECORDS SUMMARY | 2022-06-20 02:30 | XMS_ITS | Encounter Summary ---
:1945 Author Organization [facility] Address [address], [place] [address] Care Team Providers Name Role Phone Unavailable Primary Care Provider Unavailable Reason for Referral Specialty Diagnoses / Procedures Referred By Contact Refer red To Contact George Bright DO [address] [place] [id number] Referral ID Status Reason Start Date Expiration Date Visits Requ ested Visits Authorized Scheduling Instructions Your provider has recommended an appoint ment with a [facility] Physical Therapist. Please stop at the clinic angel ck out desk for assistance with scheduling or please choose one of the convenient loca tions to call and schedule your PT appointment: [facility] Outpatient PT at [facility] [phone], [facility] Outpatient PT at the [facility] [phone], [facility] Outpatient PT in the [facility] [phone]. NICS MANAGER Reason for Visit Reason Comments SHOULDER PAIN right shoulder x 1 month Encounter Details Date Type Department Care Team Description 10/30/2011 Office Visit [facility] George Bright C alcifying tendinitis of shoulder (Primary Dx); [facility] Orth[facility] DO Impingement syndrome, shoulder; Clinic [address] [place] [address] [address] [place] [id number] [phone] (Wo rk) Social History Tobacco Use Types Packs/Day Years Used Date Smoking Tobacco: Never Smokeless Tobacco: Never Alcohol Use Standard Drinks/Week Comments No 0 (1 standard drink = 0.6 oz pure alcoho l) Sex Assigned at Date Recorded Male 08/06/2021 5:59 PM CDT documented as of this encounter Patient Instructions Patient InstructionsCourtney Taylor LPN - 10/30/2011 11:35 AM CST PLAN: Right shoulder corticosteroid injection 1. Post injection instructions given. Will watch for any sign of redness or swelling and will call or return immediately if so. 2. Ice as needed today for symptom management. 3. Resume physical therapy- new order completed today 4. Continue home exercise program 5. Follow up as needed 6. The injection you received today may take 7-10 days to begin to reduce your pain and swelling. NICS MANAGER documented in this encounter Progress Notes George Bright - 11/06/2011 9:23 AM AVIONICS MANAGER NICS MANAGER George Bright - 10/30/2011 11:14 AM CST ORTHOPAEDIC CLINIC NOTE DATE OF SERVICE: 10/30/2011 REFERRING: Self (PT recommended eval) CHIEF COMPLAINT: Right shoulder pain HISTORY: The patient is a 66 yr old male who presents today for evaluation of his right shoulder. Heis right hand dominant. He is using Tylenol for pain medication. He began noticing shoulder pain a few months ago which began without injury. He was doing physical therapy for the past 7-8 weeks. Initially the therapy was helpful for his symptoms. The physical therapist recommended an evaluation when his impingement symptoms worsened. His symptoms are superior lateral and cannot go down to the elbow.He describes pain with lifting the arm. He has not had an MRI or a corticosteroid injection. He and his report that approximately 4 years ago he ruptured his right distal biceps after he slipped in the shower. He has not had any limitations from this. The patient is in a wheelchair as he is a paraplegic after a thoracic tumor. He lost the use of his legs approximately 4 years ago. MEDICAL HISTORY: His medical intake form is reviewed with him today and his past medical history, past surgical history, medications, allergies, family history, social history and review of systems areon it and available in his Epic chart. He denies any tobacco use. He is retired. He underwent a thoracic spine fusion in [address] Neff. He had ORIF of bilateral knees with Dr. Miller in March 2011. PHYSICAL EXAM: GENERAL: The patient is pleasant and cooperative today and appears his stated age. He shows no signsof agitation or depression. He is alert and oriented x3 and in no acute distress. Breathing is unlabored without any audible wheezing. RIGHT SHOULDER EXAM: SKIN: Erythema: Absent Ecchymosis: Absent Scars: Absent TENDERNESS: Present at the acromioclavicular joint and his cross-arm test is equivocal. SWELLING: None, he does have a proximal migration of the biceps muscle belly. LYMPHADENOPATHY: There is no axillary or cervical lymphadenopathy RANGE OF MOTION: Active motion includes 150 degrees of forward flexion, 135 degrees of abduction, 45 degrees of external rotation at his side with internal rotation to iliac crest. The contralateral shoulder has active motion of 170/160/60/L2. Pain with ROM: Yes Scapular winging: Absent Neer and Mccray impingement signs: Present O'Briens Test: Negative MOTOR FUNCTION AND STRENGTH: He is 4/5 muscle strength for the rotator cuff. This appears secondaryto pain. He has a negative drop arm test. SENSORY: intact SPURLINGS TEST: Negative PULSE: Radial pulse is palpable. IMAGING: Plain radiographs in the Grashey, Y-lateral and axillary views of the right shoulder are taken in the clinic today. There is some calcification along the greater tuberosity consistent with calcific tendinitis. 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 He is a paraplegic and relies heavily on his upper extremities. PLAN: His diagnosis and x-rays are reviewed with him and his today. The anatomy of the rotator cuff and the calcifications are explained as well as the self-limiting nature of the calcification symptoms. Conservative and surgical treatments are reviewed. I would recommend conservative treatment including a subacromial corticosteroid injection and resumption of physical therapy. He can do the physical therapy closer to home in [place], [place]. He says he understands this and wishes to proceed with the injection. He will follow up in the clinic on an as-needed basis. If he is continuing to have symptoms, an MRI may be his next option to evaluate the rotator cuff. All of his questions were a nswered today. He verbalized understanding of his diagnosis and was in agreement with the treatment plan. If he has any further questions or concerns, he is to contact the office. PROCEDURE: The risks, side-effects and benefits of the procedure were explained and verbal consent was obtained. A timeout was performed to confirm correct injection site. Using sterile technique, the right shoulder is injected with 2 ml of Depo-Medrol (40mg/ml) and 2 ml of 0.25% Marcaine without epinephrine into the subacromial space. This is done through a posterolateral approach with the patient in a seated position using a 22-gauge needle. The injection flowed freely without apparent complication. The patient tolerated the procedure well and a bandage was applied. This note was created using voice recognition software (PROSimity) and templating. George Bright DO 10/30/2011, 11:14 AM NICS MANAGER documented in this encounter Plan of Treatment Scheduled Referrals Name Type Priority Associated Diagnoses Order S chedule PT - PHYSICAL THERAPY Referral Routine Ordere d: 10/30/2011 [[id number]] documented as of this encounter Results RT SHOULDER GRASHEY/AX/OUTLET [[id number]] (10/30/2011 10:22 AM AVIONICS MANAGER) Anatomical Region Laterality Modality Upper Extremity, Shoulder Computed Radio graphy Specimen (Source) Anatomical Collection Method Collection Time Re ceived Time Location / / Volume Laterality 10/30/2011 10:22 AM AVIONICS MANAGER Narrative 10/30/2011 8:29 PM AVIONICS MANAGER RIGHT SHOULDER 3 VIEWS 10/30/2011 INDICATION: Shoulder pain. FINDINGS: No evidence of fracture or dis location. Small area of calcification in the distal portion like ly of the infraspinatus tendon. Procedure Note Boy Lugo H - 10/30/2011Formatti ng of this note might be different from the original. RIGHT SHOULDER 3 VIEWS 10/30/2011 INDICATION: Shoulder pain. FINDINGS: No evidence of fracture or dis location. Small area of calcification in the distal portion like ly of the infraspinatus tendon. George Bright DO RAD GD documented in this encounter Visit Diagnoses Diagnosis Calcifying tendinitis of shoulder - Prim adi Impingement syndrome, shoulder Other affections of shoulder region, not elsewhere classified Paraplegia ([facility]) Paraplegia documented in this encounter
--- OUTSIDE RECORDS SUMMARY | 2022-06-20 02:30 | XMS_ITS | Encounter Summary ---
:1945 Author Organization [facility] Address [address] [place] [address] Care Team Providers Name Role Phone Unavailable Primary Care Provider Unavailable Encounter Details Date Type Department Care Team Description 08/14/2011 Imaging [facility] [address] [place] [id number] Social History Tobacco Use Types Packs/Day Years [...] Priority Date/Time Associated Diagnosis Comme nts XR KNEE LT 2 VIEWS Routine 08/14/2011 10:01 AM Re sults for this CDT procedure are i n the results section. documented in this encounter Results XR KNEE AP/LAT 2 [...] or s ubluxation. Procedure Note Riki Eng 08/14/2011 XR KNEE AP/LAT 2VWS LT Aug [...] No acute fracture or s ubluxation. Satish SAMSON GD documented in this encounter Visit Diagnoses Not on filedocumented in this encounter
--- OUTSIDE RECORDS SUMMARY | 2022-06-20 02:30 | XMS_ITS | Encounter Summary ---
:1945 Author Organization [facility] Address [address] [place] [address] Care Team Providers Name Role Phone Unavailable Primary Care Provider Unavailable Reason for Visit Reason Comments POST-OP,EXAM Encounter Details Date Type Department Care Team Description 03/27/2011 Office Visit [facility] Satish Bowling Fracture of femoral condyle, left, closed (Primary Dx); Orthoped[facility] [place] Fracture of femoral condyle, right, clos ed; [address] [place] [address] [place] [address] [place], [place] [phone] Social History Tobacco Use Types Packs/Day Years [...] - - Weight 105.7 kg (233 lb) 03/27/2011 9:11 AM CDT Height - - Body Mass Index 33.43 03/13/2011 12:20 PM CDT documented in this encounter Patient Instructions Patient Loretta Levi RN - 03/27/2011 9:46 AM CDT Return to clinic April 24, 2011 with x-rays of both knees Please stop at the check out desk to schedule a follow up appointment. Use this grid to write down your next appointment. DATE & TIME PROVIDER LOCATION ( ) [facility]: [address] [place] [address] ( ) [facility] [address] [place], [place] ( ) Other: ( ) [facility]: [address] [place] [address] ( ) [facility] [address] [place], [place] ( ) Other: If you received a prescription at your visit today and later feel you need a refill on that medication, please contact your pharmacy. If the pharmacy is not able to give you a refill, they will send your request to our clinic for you. Loretta Joyner RN 03/27/2011 9:46 AM documented in this encounter Progress Notes Satish Bowling - 03/27/2011 11:21 AM CDT DATE OF SERVICE: 03/27/2011 SUBJECTIVE: The patient has a history of paraplegia and has bilateral lateral femoral condyle fractures of his femur and a left tibial plateau fracture and recently underwent plating of all 3 of theseinjuries. He presents today for a wound check. His incisions are clean, dry and intact and I removedstitches without incident. I will allow him to resume machine that puts his knees through passive motion. We will not do his standing device at this time. I imagine will be able to do that once he has healed up some more. I would like him to work on his knee range of motion and return in 1 month for x-rays. We will get AP and lateral x-rays of both knees and the field of view should be big enough to see the plates. He has a distal femur plate on the left, a proximal tibia plate on the left, and a distal femur plate on the right. I have answered all their questions and examined his legs. To completehis exam, he does not have any signs of infection in his leg. There is some mild swelling as one might expect, but no erythema on the left leg and minimal swelling and no erythema on the right. aStish Bowling MD [employer]:hailey Dictated: 03/27/2011 10:06:53 Transcribed: 03/27/2011 10:13:44 Job: [id number] Doc: [id number] cc: documented in this encounter Plan of Treatment Not on filedocumented as of this encounter Visit Diagnoses Diagnosis Fracture of femoral condyle, left, close d (HRC) - Primary Closed fracture of femoral condyle Fracture of femoral condyle, right, clos ed ([facility]) Closed fracture of femoral condyle Tibial plateau fracture Closed fracture of upper end of tibia documented in this encounter
--- OUTSIDE RECORDS SUMMARY | 2022-06-20 02:30 | XMS_ITS | Encounter Summary ---
:1945 Author Organization [facility] Address [address] [place] [id number] Care Team Providers Name Role Phone Unavailable Primary Care Provider Unavailable Reason for Visit Reason Comments OSTEOPOROSIS Encounter Details Date Type Department Care Team Description 08/07/2011 Office Visit Specialty Center Quan Ames Ost eoporosis (Primary Dx); [facility] [address] [place] [address] Social History Tobacco Use Types Packs/Day Years Used Date Smoking Tobacco: Never Smokeless Tobacco: Never Alcohol Use Standard Drinks/Week Comments No 0 (1 standard drink = 0.6 oz pure alcoho l) Sex Assigned at Date Recorded Male 08/06/2021 5:59 PM CDT documented as of this encounter Last Filed Vital Signs Vital Sign Reading Time Taken Comments Blood Pressure 97/63 08/07/2011 10:56 AM CDT Pulse 92 08/07/2011 10:56 AM CDT Temperature - - Respiratory Rate - - Oxygen Saturation - - Inhaled Oxygen Concentration - - Weight - - Height - - Body Mass Index - - documented in this encounter Patient Instructions Patient InstructionsQuan Ames - 08/07/2011 11:35 AM CDT Assessment and Plan: 1. Severe Osteoporosis: Based on nontraumatic bilateral leg fractures and T- scores <-2.5 of the hip (lowest -4.1). Spine is suprisingly normal, normal looking on dexa scan imaging as well. 02/19 testosterone was low-normal, low normal calcium, high normal pth, low-normal vitamin d, hgb low, normal kidney function. Repeat pth last visit in 02/19 was high. Labs never sent to me. Not a Forteo candidate secondary to history of radiation. At last visit was going to get surgery on legs. Held off on treatment because of this, although the data on healing bone with bisphosphonate therapy suggest no worsening of bone healing, and possibly some improvement on bone healing. Patient has been on calcitonin since 05/21. -stop calcitonin, as it is less efficacious than alendronate. -start alendronate weekly. Told to take on empty stomach, stay upright and don't eat x 1 hour after. -The data available at this time is unclear whether there is an increase risk of subtrochanteric fractures of the femur in patients on bisphosphonate therapy compared to those not on it. If present, the risk seems to be very small. One large study suggested that for every 100 fractures prevented withbisphosphonate therapy, less than one femur fracture will occur, if in fact here is an association. Patient should call with leg pain. -Discussed risk of osteonecrosis of the jaw in patients using bisphosphonates is approximately 11/1699-1/100,000, with development most likely related to invasive dental procedures. Discussed that if aninvasive dental procedure was necessary, we would preferably stop the bisphosphonate approximately 3months prior to reduce the risk. -Discussed fall precautions: minimize tripping hazards including loose rugs, cords, etc. Hold on to railings as climb down stairs. Be careful when walking on ice or slick ground (or try to avoid altogether). -continue weight bearing exercises, including walking and light weight lifting. Do not lift anythingexcessively heavy (greater than 20 pounds). -repeat dexa in one year. 2. Hyperparathyroidism: mild, likely secondary. No action was taken after last visit as the labs were not forwarded to me- I will be addressing this systems issue with my staff. Vitamin d, calcium wereboth low normal. -there is some worrisome evidence concerning the effect of calcium (with or without vitamin d) on vascular disease (possibly increasing strokes and heart attacks). However, more studies need to be doneon this subject. It is preferable to obtain 2964-9908 mg of calcium through diet rather than calciumsupplements. -start vitamin d (cholecalciferol) over the counter 2000 IU daily. -recheck today and in 1 year. May need to recheck sooner depending on labs today. Thank you for choosing Endocrinology Clinic at [facility] Treating physician: Quan Ames MD, [employer] State Tester. Follow up visit in 1 year (patient needs to schedule) PLEASE STOP AT THE CHECKOUT DESK TO MAKE YOUR APPOINTMENT OR TO PLACE IT ON WAITING LIST. For appointments call: [phone] For question call our nurses at [phone] Care Line (after 5 PM, weekends and holidays): [phone] Mail order pharmacy: [phone] or Labs: today and 1 year (patient needs to schedule) For lab only appointments (Daily 7 a.m.-9 p.m.): [phone] Radiology: 1 year (patient needs to schedule) TEST RESULTS: Usually we contact you and inform you of test results by either calling or sending youa letter, unless you have a follow up visit after your test. USUALLY, THIS TAKES 2 WEEKS AFTER LAB RESULTS ARE COMPLETED AND RECIEVED. It may take up to 2 weeks for some tests to be completed (send outtests). If you don't receive any information about your test within the expected time frame discussed during your visit with us, please call one of our nurses (phone numbers mentioned above) OFFICE VISITS: Kindly attempt to be on time for your appointment. This would help shortening waitingtime in clinic. Please note that your follow up visits total 40 minutes, 20 minutes with a nurse (rooming procedure)and 20 minutes with your physician CANCELLATION OF APPOINTMENTS: If you are not able to keep your appointment, please call and cancel your appointment at least 48 hour prior to your scheduled appointment or as soon as you can. This would help other patients who are waiting for an appointment and, overall, would patients access to health care. MEDICATION REFILLS: Please contact your pharmacy for refills. Your pharmacy will then contact our clinic if needed. However, don't hesitate to call our clinic if there is any problem. documented in this encounter Progress Notes Bernard Soriano RN - 08/10/2011 10:05 AM CDT Quick Note: Results and recommendations released to [facility]. Bernard Soriano RN Quan Ames - 08/09/2011 8:14 PM CDT Quick Note: Vitamin d is low. PTH is high, testsoterone is low. -start 2000 of vitamin d as discussed. -recheck pth, vitamin d, and calcium in 3 months. -recheck total, free, bioavailable testosterone, lh, psa, hgb in 1-2 weeks PRIOR to 9 am. If still low will likely start testosterone after discussing on phone. Quan Ames MD 08/09/2011, 8:13 PM Quan Ames - 08/07/2011 11:08 AM CDT Endocrine Return visit follow up Reason for visit: Follow up for osteoporosis HPI: Carl Cullen is a 66 yr old male seen in follow up. Intermittent fracture history: none Intermittent loss of height: NA Current osteoporosis medication and compliance: tolerating calcitonin. Taking caltrate + d as well. Getting sun this summer. Is exercising with stander and another exercise machine. Review of Systems: Please see HPI as well. No fevers, significant weight change, vision changes, chest pain, palpitations, dizziness, shortness of breath, abdominal pain, nausea, vomiting, diarrhea, constipation, dysuria, hematuria, sexual dysfunction, skin lesions, depression, anxiety, paresthesia, myalgias, arthalgias. Past Medical History Diagnosis Date ??? 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 However resection was incomplete due [...] for spasticity of lower extremities. ??? 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 Leg fracture, left nontraumatic ??? Hypercholesteremia ??? Chronic constipation ??? Depression : History Social History ??? Marital Status: Spouse Name: N/A Number of Children: 2 ??? Years of Education: N/A Occupational History ??? [employer] ??? [employer] ??? retired/disability Social History Main Topics ??? Smoking status: Never Smoker ??? Smokeless tobacco: Never Used ??? Alcohol Use: No ??? Drug Use: No ??? Sexually Active: Yes -- Female partner(s) Other Topics Concern ??? Not on file Social History Narrative Wheelchair bound. Able to transfer from bed to wheelchair with assist of 1 at baseline. Lives with his in [place]. : Family History Problem Relation Age of Onset ??? Cancer, Colon Mother ??? Cancer, Other Brother brother with throat cancer ??? Cancer, Breast Sister ??? Osteoporosis Mother no history of fractures : Physical Exam: Vitals reviewed Psych: patient pleasant, appropriate, mood is good Eyes: extra-ocular movements intact ENT: moist mucus membranes, no oral lesions Thyroid: Thyroid normal size. No thyroid nodules. No thyroid bruit. Heme: no adenopathy CV: Regular rate and rhythm, no murmurs, no S3, no S4 Lungs: clear to auscultation bilaterally without wheezes or crackles Abdomen: + bowel sounds, no distension Skin: no lesions, no edema Musculoskeletal: normal muscle tone. No kyphosis. No bone tenderness. Neurologic: 2+ deep tendon reflexes of extremities with normal relaxation. Labs: reviewed with patient Assessment and Plan: 1. Severe Osteoporosis: Based on nontraumatic bilateral leg fractures and T- scores <-2.5 of the hip (lowest -4.1). Spine is suprisingly normal, normal looking on dexa scan imaging as well. 02/19 testosterone was low-normal, low normal calcium, high normal pth, low-normal vitamin d, hgb low, normal kidney function. Repeat pth last visit in 02/19 was high. Labs never sent to me. Not a Forteo candidate secondary to history of radiation. At last visit was going to get surgery on legs. Held off on treatment because of this, although the data on healing bone with bisphosphonate therapy suggest no worsening of bone healing, and possibly some improvement on bone healing. Patient has been on calcitonin since 05/21. -stop calcitonin, as it is less efficacious than alendronate. -start alendronate weekly. Told to take on empty stomach, stay upright and don't eat x 1 hour after. -The data available at this time is unclear whether there is an increase risk of subtrochanteric fractures of the femur in patients on bisphosphonate therapy compared to those not on it. If present, the risk seems to be very small. One large study suggested that for every 100 fractures prevented withbisphosphonate therapy, less than one femur fracture will occur, if in fact here is an association. Patient should call with leg pain. -Discussed risk of osteonecrosis of the jaw in patients using bisphosphonates is approximately 11/1699-1/100,000, with development most likely related to invasive dental procedures. Discussed that if aninvasive dental procedure was necessary, we would preferably stop the bisphosphonate approximately 3months prior to reduce the risk. -Discussed fall precautions: minimize tripping hazards including loose rugs, cords, etc. Hold on to railings as climb down stairs. Be careful when walking on ice or slick ground (or try to avoid altogether). -continue weight bearing exercises, including walking and light weight lifting. Do not lift anythingexcessively heavy (greater than 20 pounds). -repeat dexa in one year. 2. Hyperparathyroidism: mild, likely secondary. No action was taken after last visit as the labs were not forwarded to me- I will be addressing this systems issue with my staff. Vitamin d, calcium wereboth low normal. -there is some worrisome evidence concerning the effect of calcium (with or without vitamin d) on vascular disease (possibly increasing strokes and heart attacks). However, more studies need to be doneon this subject. It is preferable to obtain 5823-5556 mg of calcium through diet rather than calciumsupplements. -start vitamin d (cholecalciferol) over the counter 2000 IU daily. -recheck today and in 1 year. May need to recheck sooner depending on labs today. Cc: Dr. Loretta Mayer M.D. [address] [address] I spent >25 minutes with patient, over 50% of which was spent discussing issues as outlined aboveand plan of care in detail. documented in this encounter Nursing Notes 08/07/2011 10:50 AM CDT >> ALEIDA Craig Aug 07, 2011 10:58 AM Unable to do height and weight as is w/c bound, states weight is about 230 lbs and height is about 70 in. Is here for f/u on osteoporosis, last dexa 02/06/11. No questions or concerns. BP Readings from Last 3 Encounters: 08/07/11 : 97/63 05/30/11 : 134/79 05/24/11 : 108/68 Giselle Sanchez LPN documented in this encounter Plan of Treatment Not on filedocumented as of this encounter Procedures Procedure Name Priority Date/Time Associated Comments Diagnosis TESTOSTERONE,TOTAL,F Routine 08/07/2011 11:52 AM Osteopo rosis Results for this REE & BIOAVAILABLE, CDT Hyperparathyroidism p rocedure are in MALES the results section. VITAMIN D Routine 08/07/2011 11:52 AM Osteoporosis Results for this 25-HYDROXY, TOTAL CDT Hyperparathyroidism pro cedure are in the results section. INTACT PTH + CALCIUM Routine 08/07/2011 11:52 AM Osteopo rosis Results for this CDT Hyperparathyroidism procedur e are in the results section. CREATININE / GFR Routine 08/07/2011 11:52 AM Osteoporosi s Results for this CDT Hyperparathyroidism procedur e are in the results section. MAGNESIUM Routine 08/07/2011 11:52 AM Osteoporosis Results for this CDT Hyperparathyroidism procedur e are in the results section. PHOSPHORUS Routine 08/07/2011 11:52 AM Osteoporosis Results for this CDT Hyperparathyroidism procedur e are in the results section. ALBUMIN Routine 08/07/2011 11:52 AM Osteoporosis Results for this CDT Hyperparathyroidism procedur e are in the results section. documented in this encounter Results (ABNORMAL) TESTOSTERONE,TOTAL,FREE & BIOAVAILABLE (08/07/2011 11:52 AM CDT) [facility] gist Method Time Signature Sex Horm Bind 29 13 - 74 [facility] Glob nmol/L Testosterone, 146 (L) 183 - 703 [facility] Total ng/dl Testosterone, 2.9 (L) 3.8 - [facility] Free 12.8 ng/dl Testosterone, 68.8 (L) 89.0 - [facility] Bioav. 300.0 ng/dl Specimen Anatomical Collection Method Collection Time Receive d Time (Source) Location / / Volume Laterality 08/07/2011 11:52 08/07/2011 AM CDT 12:05 PM CDT Quan Ames MD LAB_1 Performing Organization Address [facility] Phon e Number [employer] [phone] [facility] [address] [place] [phone] MAGNESIUM (08/07/2011 11:52 AM CDT) P athologist Signature Magnesium 1.9 1.6 - 2.3 [facility] mg/dl Specimen Anatomical Collection Method Collection Time Receive d Time (Source) Location / / Volume Laterality 08/07/2011 11:52 08/07/2011 AM CDT 12:05 PM CDT Quan Ames MD LAB_1 Performing Organization Address [facility] Phon e Number [employer] [phone] [facility] [address] [place] [phone] PHOSPHORUS (08/07/2011 11:52 AM CDT) P athologist Signature Phosphorus 3.0 2.5 - 4.5 [facility] mg/dl Specimen Anatomical Collection Method Collection Time Receive d Time (Source) Location / / Volume Laterality 08/07/2011 11:52 08/07/2011 AM CDT 12:05 PM CDT Quan Ames MD LAB_1 Performing Organization Address City/[facility]/ZIP Code Phon e Number [employer] [phone] [phone] CREATININE / GFR (08/07/2011 11:52 AM CDT) Analysis Performed At Patho logist Time Signature Creatinine 0.88 0.66 - [facility] 1.25 mg/dl GFR, Estimated >60.0 >60 [facility] ml/min/1.7 3m2 GFR, Est., If >60.0 >60 [facility] Black ml/min/1.7 3m2 Specimen Anatomical Collection Method Collection Time Receive d Time (Source) Location / / Volume Laterality 08/07/2011 11:52 08/07/2011 AM CDT 12:05 PM CDT Quan Ames MD LAB_1 Performing Organization Address City/[facility]/ZIP [facility] Phon e Number [facility] [phone] [phone] ALBUMIN (08/07/2011 11:52 AM CDT) P athologist Signature Albumin 3.7 3.5 - 5.0 [facility] g/dl Specimen Anatomical Collection Method Collection Time Receive d Time (Source) Location / / Volume Laterality 08/07/2011 11:52 08/07/2011 AM CDT 12:05 PM CDT Quan Ames MD LAB_1 Performing Organization Address City/[facility]/ZIP [facility] Phon e Number [facility] [phone] [phone] (ABNORMAL) INTACT PTH + CALCIUM (08/07/2011 11:52 AM CDT) P athologist Signature Intact PTH 80.3 (H) 14.0 - [facility] 72.0 pg/mL Comment: Performed at [facility] Calcium 8.5 8.4 - 10.2 mg/dL [facility] Comment: Performed at [facility] Specimen Anatomical Collection Method Collection Time Receive d Time (Source) Location / / Volume Laterality 08/07/2011 11:52 08/07/2011 AM CDT 12:05 PM CDT Quan Ames MD LAB_1 Performing Organization Address [facility] Phon e Number [facility] [employer] [phone] [phone] (ABNORMAL) VITAMIN D 25-HYDROXY, TOTAL (V77.99) (08/07/2011 11:52 AM CDT) [facility] Method Time Signature Vitamin 27.0 (L) 30 - 80 [facility] D,25-OH, Tot ng/mL Comment: Deficiency: ??< 20 ng/mL Insufficiency: ??20-29 ng/mL Optimum Level: ??30-80 ng/mL Possible Toxicity: > 80 ng/mL Performed at [facility] Specimen Anatomical Collection Method Collection Time Receive d Time (Source) Location / / Volume Laterality 08/07/2011 11:52 08/07/2011 AM CDT 12:05 PM CDT Quan Ames MD LAB_1 Performing Organization Address [facility] Phon e Number [facility] [employer] [phone] [phone] documented in this encounter Visit Diagnoses Diagnosis Osteoporosis ([facility]) - Primary Osteoporosis, unspecified Hyperparathyroidism ([facility]) Hyperparathyroidism, unspecified documented in this encounter
--- OUTSIDE RECORDS SUMMARY | 2022-06-20 02:30 | XMS_ITS | Encounter Summary ---
:1945 Author Organization [employer] Address [address], [place] [address] Care Team Providers Name Role Phone Unavailable Primary Care Provider Unavailable Encounter Details Date Type Department Care Team Description 04/24/2011 [facility] [address] [place] [id number] Social History Tobacco Use Types Packs/Day Years [...] nts XR KNEE LT 2 VIEWS Routine 04/24/2011 10:28 AM Re sults for this CDT procedure are i n the results section. XR KNEE RT 2 VIEWS Routine 04/24/2011 10:28 AM Re sults for this CDT procedure [...] Right knee and left knee 2 v [facility] 03/14/2011. RIGHT KNEE: ??Lateral plate and screw [...] Right knee and left knee 2 v [facility] 03/14/2011. RIGHT KNEE: Lateral plate and screw [...] JIMENEZ documented in this encounter Visit Diagnoses Not on filedocumented in this encounter
--- OUTSIDE RECORDS SUMMARY | 2022-06-20 02:30 | XMS_ITS | Encounter Summary ---
:1945 Author Organization [employer] [facility] [facility] Address [address] [address] Care Team Providers Name Role Phone Unavailable Primary Care Provider Unavailable Reason for Referral Specialty Diagnoses / Procedures Referred By Contact Refer red To Contact Garry Neff MD [address] [place] [address] Referral ID Status Reason Start Date Expiration [...] all the number on your insurance card. [employer] Reason for Visit Reason Comments FOLLOW-UP, TEST RESULTS Encounter Details Date Type Department Care Team Description 10/25/2011 Office Visit Specialty Center Garry Neff Epe ndymoma (Primary 401 NeuroSurgery MD Jose Dx) [address] [facility]. [address] [place] [address] [place], [place] [phone] (Wo rk) Social History Tobacco Use Types Packs/Day Years Used Date Smoking Tobacco: Never Smokeless Tobacco: Never Alcohol Use Standard Drinks/Week Comments No 0 (1 standard drink = 0.6 oz pure alcoho l) Sex Assigned at Date Recorded Male 08/06/2021 5:59 PM CDT documented as of this encounter Last Filed Vital Signs Vital Sign Reading Time Taken Comments Blood Pressure 112/64 10/25/2011 1:05 PM [employer] Pulse 74 10/25/2011 1:05 PM [employer] Temperature 36.4 ??C (97.6 ??F) 10/25/2011 1:05 PM [employer] Respiratory Rate 16 10/25/2011 1:05 PM [employer] Oxygen Saturation - - Inhaled Oxygen Concentration - - Weight - - Height - - Body Mass Index - - documented in this encounter Patient Instructions Patient InstructionsSelene Johnson RN - 10/25/2011 1:38 PM CST [facility] Patient Instructions You should increase your Neurontin to 3000 mg/day this will be increase slowly over the next 14 days. Increase one tablet every 3-4 days until you are taking 900 mg in morning-1200 mg in the afternoon and bedtime You have been referred for Physical therapy for core conditioning. You will be scheduled for a thoracic MRI-prior to your appointment in 6 months. Follow up with Dr. Garry Neff in 6 months or sooner if the pain does not improve. If tests were ordered, they will be [...] understanding. Please call the Neurosurgery/Spine Clinic at [phone] with any further questions or concerns. [employer] documented in this encounter Progress Notes Garry Neff MD - 12/05/2011 9:05 AM CST Lucy Lanza PA-C, am acting as a plumber supervisor for Dr. Neff, I am transcribing directly from notes Dr. Neff took during the clinic visit This is a dictation on Carl Cullen is a 66 yr old male [id number] 1945 Chief Complaint: Revisit to discuss lumbar and thoracic MRI Carl Cullen is a 66 yr old [...] for 10 days following the procedure. Currently pt is here today to discuss thoracic and lumbar MRI. Objective: BP 112/64 Pulse 74 Temp(Src) 97.6 ??F (36.4 ??C) (Oral) Resp 16 Lumbar MRI: There is some clumping of the nerve roots within the cauda equina in the upper, mid and lower lumbar region which was not present on 04/05/2010. 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 No evidence of leptomeningeal drop metastasis in the lumbar spinal region. Lumbar spondylosis. No osseous lesions seen. L4-L5: Small midline protrusion. Mild to moderate facet arthropathy. Moderate narrowing of the neural foramina. No evidence of canal stenosis. L5-S1: Moderate to advanced degenerative disc changes with marked interspace narrowing. Moderate facet arthropathy with moderate to severe narrowing of the neural foramina which is unchanged. Thoracic MRI: Stable postoperative changes involving the upper thoracic cord with resection of the cord extending from the T2-T3 interspace to the mid T5 vertebral body level. Postradiation changes involving the marrow in the upper thoracic spine. Decrease in the size of the postoperative fluid collection in the posterior paraspinal soft tissues. No evidence of residual or recurrent tumor in the thoracic spinal canal. Atrophy of the cervical and upper thoracic cord. Atrophy of the mid and lower thoracic cord. Abnormal signal within the conus. These findings are unchanged compared to 02/08/2011. 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 On May 09, 2010 we replaced the catheter of the baclofen pump due to meningitis. On May 29, 2010 we removed the baclofen pump and catheter Plan Pt was seen and evaluate by Dr. Neff Increase Neurontin as directed to take 3000 mg/day PT for core and re conditioning F/u 6 months with thoracic MRI Dr. Neff discussed the plan in full with pt and answered all questions Lucy Parker PA-C This note created using speech-recognition software and may contain unintended word substitutions. Agree with above Garry Neff MD [employer] documented in this encounter Plan of Treatment Scheduled Referrals Name Type Priority Associated Diagnoses Order S chedule PHYSICAL THERAPY Referral Routine Ordered: documented as of this encounter Results MR THORACIC SPINE WITH/WITHOUT CONTRAST (04/24/2012 10:45 AM CDT) Anatomical Region Laterality Modality Spine, T-Spine, L-Spine, C-Spine, Skeletal Magnetic Resonance Specimen (Source) Anatomical Collection Method Collection Time Re ceived Time Location / / Volume Laterality 04/24/2012 10:45 AM CDT Narrative 04/24/2012 11:44 AM CDT [facility] THORACIC SPINE MRI 04/24/2012 INDICATION: Followup thoracic [...] might be different from the original. [facility] THORACIC SPINE MRI 04/24/2012 INDICATION: Followup thoracic [...]
--- OUTSIDE RECORDS SUMMARY | 2022-06-20 02:30 | XMS_ITS | Encounter Summary ---
:1945 Author Organization [employer] Address [address], [place] [address] Care Team Providers Name Role Phone Unavailable Primary Care Provider Unavailable Reason for Visit Reason Onset Date Comments Medication Request 10/03/2011 Encounter Details Date Type Department Care Team Description 10/03/2011 Telephone Specialty Center [address], Medication Request Physical Medicine MD 401 [facility]. [address] [place] [address] [place] [address] [phone] (Wo rk) Social History Tobacco Use Types [...]
--- OUTSIDE RECORDS SUMMARY | 2022-06-20 02:30 | XMS_ITS | Encounter Summary ---
:1945 Author Organization [facility] Address [address], [place] [address] Care Team Providers Name Role Phone Unavailable Primary Care Provider Unavailable Reason for Visit Reason Comments HIP PAIN Lt Hip pain Encounter Details Date Type Department Care Team Description 10/02/2011 Office Visit [facility] Satish Bowling Hip pain (Primary Orthopedics MD Bryn Dx) [address] [address] [place], [place] [phone] Social History Tobacco Use Types Packs/Day Years [...] - - Weight 104.3 kg (230 lb) 10/02/2011 9:42 AM SCHEDULING ADMINISTRATOR Height 177.8 cm (5' 10) 10/02/2011 9:42 AM SCHEDULING ADMINISTRATOR Body Mass Index 33 10/02/2011 9:42 AM SCHEDULING ADMINISTRATOR documented in this encounter Progress Notes Satish Bowling - 10/08/2011 8:59 AM SCHEDULING ADMINISTRATOR DULING ADMINISTRATOR Satish Bowling - 10/02/2011 10:08 AM CST Carl Cullen is a 66-year-old man with a history of paraplegia. He had bilateral knee fractures which underwent fixation earlier this year. Two months ago he was reaching for a heavy piece of equipment and noticed some posterior buttock pain extending up into his low back. He is also been evaluated by information technology specialist has a recent MRI and follow up appointment with him in the near future. Patient is insensate below the hips so it is not possible to get a history of radicular type symptoms. Heis in managing his pain with ibuprofen and his primary care doctor started on gabapentin and been increasing the dose. Otherwise his past medical family social history are essentially unchanged from previous visits. On examination he is alert oriented in no acute distress his heart is regular rate rhythm respirations are regular and unlabored eyes are nonicteric. Again he is insensate from the hip region distally.There no masses in his posterior hip area. His states that there visit picked up some bursitis in his hips in the past but they have not noticed this recently. I also cannot elicit any focal tenderness in the posterior lateral hip. His legs are at their baseline with some swelling and edema and no motor function or sensory function. His upper extremities have normal motion at the shoulders elbows wrists and hands with no edema erythema and a neurologic and vascular exam within normal limits. AP pelvis was taken today which show no sign of fracture in the hip and acetabular region to my eye.The sacroiliac joints are within normal limits as well. 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 I also reviewed the MRI of his lumbar spine which shows a collapsed vertebral disc at L5-S1 with some his facet hypertrophy and canal impingement. The reportdescribes nerve root clumping and suggests arachnoiditis as a possible etiology. The patient will see his information technology specialist soon and are he has an appointment. My impression is that his left-sided low back and upper buttock pain are more likely related to his lumbar spine issues. I do not see any sign of fracture in his pain pattern is really not consistent with that. There was was no sign of vertebral collapse on his MRI from 09/18/2011 either patient will return to see me on an as-needed basis. I have answered all his questions. DULING ADMINISTRATOR documented in this encounter Plan of Treatment Not on filedocumented as of this encounter Results XR PELVIS AP (10/02/2011 9:36 AM SCHEDULING ADMINISTRATOR) Anatomical Region Laterality Modality Pelvis Computed Radiography Specimen (Source) Anatomical Collection Method Collection Time Re ceived Time Location / / Volume Laterality 10/02/2011 9:36 AM SCHEDULING ADMINISTRATOR Narrative 10/02/2011 3:53 PM SCHEDULING ADMINISTRATOR XR PELVIS AP 1VW Oct 02, 2011 09:36:00 AM INDICATION: Pain COMPARISON: None FINDINGS: Generalized osteopenia. No fra cture or dislocation Procedure Note Trae Blair P - 10/02/2011Formatti ng of this note might be different from the original. XR PELVIS AP 1VW Oct 02, 2011 09:36:00 AM INDICATION: Pain COMPARISON: None FINDINGS: Generalized osteopenia. No fra cture or dislocation Satish Bowling MD RAD GD documented in this encounter Visit Diagnoses Diagnosis Hip pain - Primary Pain in joint, pelvic region and thigh documented in this encounter
--- OUTSIDE RECORDS SUMMARY | 2022-06-20 02:31 | XMS_ITS | Encounter Summary ---
:1945 Author Organization [employer] Address [address] [place] [address] Care Team Providers Name Role Phone Unavailable Primary Care Provider Unavailable Encounter Details Date Type Department Care Team Description 03/13/2011 Surgery RH Operating Room Karl Mcclain, OPEN REDUCTION INTERNAL [address] FIXATION [place] [address] FRACTURE [phone] [place], [place] [address] (Wo rk) Social History Tobacco Use Types Packs/Day Years Used Date Smoking Tobacco: Never Alcohol Use Standard Drinks/Week Comments No 0 (1 standard drink = 0.6 oz pure alcoho l) Sex Assigned at Date Recorded Male 08/06/2021 5:59 PM CDT documented as of this encounter Last Filed Vital Signs Vital Sign Reading Time Taken Comments Blood Pressure 143/89 03/13/2011 12:20 PM CDT Pulse 76 03/13/2011 12:20 PM CDT Temperature - - Respiratory Rate 12 03/13/2011 12:20 PM CDT Oxygen Saturation 100% 03/13/2011 12:20 PM CDT Inhaled Oxygen Concentration - - Weight 105.7 kg (233 lb) 03/13/2011 12:20 PM CDT Height 177.8 cm (5' 10) 03/13/2011 12:20 PM CDT Body Mass Index 33.43 03/13/2011 12:20 PM CDT documented in this encounter Discharge Summaries Edith Pope RN - 03/16/2011 4:53 PM CDT [facility] Discharge Note - Nursing Admission Date/Time: 03/13/2011 7:32 PM Attending MD: Karl Mcclain Discharge Criteria:ORTHOPEDIC: [1] Cleared by medicine (call medicine team no later than 9 am on dayof discharge). Met. [3] Pain controlled on oral meds. Met. [4] Passes PT/OT. Met. Patient discharged: to Home. Discharge Date: 03-16-11 Discharge Time: 1130 Patient accompanied by: spouse. Transported by: Wheelchair Valuables were taken home by patient: Yes Discharge instructions given and explained to patient: Yes Was patient discharged on Warfarin?Yes. Patient was given discharge instructions on: Compliance issues with warfarin therapy. Dietary requirements while on warfarin therapy. Follow-up monitoring related to warfarin therapy. Potential adverse drug reactions and interactions related to warfarin therapy. Patients general condition on discharge: Stable with new wheel chair delivered and tried with OT assist All medical devices (telemetry/IV/etc) unless otherwise ordered, have been removed and stored: Yes Report Completed by: Edith Pope RN --- End of Report --- Raquel Cook - 03/16/2011 1:[address] [facility] Orthopedic Discharge Note Patient Name: Carl Cullen Date of : 1945 Staff MD: Karl Mcclain Admit Date/Time: 03/13/2011 Discharge Date: 03/16/2011 Service: Orthopedics Attending MD: Karl Mcclain Admitting Diagnosis: Benign neoplasm of other specified sites [229.8] (BENIGN NEOPLASM NEC) Discharge Diagnosis: Benign neoplasm of other specified sites [229.8] (BENIGN NEOPLASM NEC) Operations/Procedures: 03/13/11: ORIF L tibia plateau, ORIF L femoral condyle, ORIF R femoral condyle Complications: None Allergies: Zaroxolyn and Oxycodone Medications on Admission: (Not in an outpatient encounter) Past Medical History Diagnosis Date ??? 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 However resection was incomplete due [...] ??? Hypercholesteremia ??? Chronic constipation ??? Depression HPI : Per Dr Mcclain's office note 02/27/11: The patient has a history of paraplegia for 4 years. Heis wheelchair bound and has no sensation in his lower extremities. His therapist had noted some swelling in his knees and he's had a lot of spasticity lately, as much as ever. He presents now for evaluation of his knees. He does bring outside films that show a CAT scan and then x-rays were taken today. He really has no symptoms in his knees and he's been avoiding doing stretches that puts varus load on the knee. He has also avoid using his machine that loads the lower extremities in an effort to keep the bones and muscles stimulated and maintain his bone mineral density and some his flexibility. He does not recall an event that he may have injured his knees. During this office visit it was determined the patient would be best treated with surgical intervention for the bilateral femoral condyle fractures and left tibia plateau fracture noted on imaging. The surgical procedure was scheduled. Hospital Course: The patient reported for surgery on 03/13/11. He underwent the procedure noted above,which he tolerated well. He was given IV antibiotics and IV/PO pain medications during the perioperative time. He was admitted to the orthopaedic service for post operative pain control and medical stabilization. The hospital medicine service was consulted for assistance with medical management. OT was consulted for ADLs, PT was consulted for wheelchair evaluation only. Case management was consulted for assistance with disposition. The patient had an uneventful hospital stay with no acute cardiovascular or pulmonary events. On hospital day #3 the patient was discharged to home as he met the following criteria: tolerating PO diet/fluids, tolerating pain with PO meds, voiding without green, passing flatus/BM, cleared by all consulting services for safe discharge. Discharge Disposition: To home Condition at discharge:good. Code Status: Not on file. Diet: Regular DVT prophylaxis: Lovenox per Medicine team Discharge Medications: Discharge Medication List as of 03/16/11 10:08 AM START taking these medications acetaminophen (AKA TYLENOL) 325 MG tablet Take 2 Tabs by mouth every 6 hours as needed for Pain., Disp-90 Tab, R-2, Q6H PRN Starting 03/15/2011, Until Discontinued, Oral, Normal enoxaparin 100 MG/ML SOLN injection Inject 100 mg subcutaneously every 12 hours. Continue injections until INR 2-3 for 2 days., Disp-1400 mL, R-1, Q12H (NON-STND) Starting 03/16/2011, Until Discontinued, SC, Normal magnesium hydroxide (AKA MILK OF MAGNESIA) 400 MG/5ML suspension Take 30 mL by mouth daily as needed for Constipation., Disp-118 mL, R-3, DAILY PRN Starting 03/15/2011, Until Discontinued, Oral, Normal polyethylene glycol (AKA MIRALAX) packet Take 17 g by mouth daily., Disp-10 Each, R-2, DAILY Starting 03/15/2011, Until Discontinued, Oral, Normal !! sennosides-docusate sodium (AKA SENNA-S,SENNA PLUS) 8.6-50 MG tablet Take 2 Tabs by mouth daily., Disp-60 Tab, R-2, CLARI, DAILY Starting 03/15/2011, Until Discontinued, Oral, Normal !! sennosides-docusate sodium (AKA SENNA-S,SENNA PLUS) 8.6-50 MG tablet Take 3 Tabs by mouth daily at bedtime., HS Starting 03/16/2011, Until Discontinued, Oral, No Print/NoFill !! - Potential duplicate medications found. Please discuss with provider. CONTINUE these medications which have CHANGED warfarin (AKA COUMADIN) 5 MG tablet Take 2 Tabs by mouth daily. Adjust dose based on INR result as directed, goal INR 2-3, Disp-30 Tab,R-11, DAILY Starting 03/16/2011, Until Discontinued, Oral, Normal CONTINUE these medications which have NOT CHANGED atorvastatin (LIPITOR) 40 MG tablet Take 1 Tab by mouth daily., DAILY, Until Discontinued, Oral, Historical baclofen (AKA LIORESAL) 20 MG tablet Take 40 mg by mouth three times a day., TID, Until Discontinued, Oral, Historical cholecalciferol (AKA VITAMIN D3) 1000 UNIT tablet Take 1,000 Units by mouth daily., DAILY, Until Discontinued, Oral, Historical citalopram (AKA CELEXA) 40 MG tablet Take 40 mg by mouth daily., DAILY, Until Discontinued, Oral, Historical cyclobenzaprine (AKA FLEXERIL) 10 MG tablet Take 1 Tab by mouth two times a day., Disp-60 Tab, R-0, BID Starting 02/28/2011, Until Discontinued,Oral, Historical dantrolene (DANTRIUM) 25 MG capsule Take 1 Cap by mouth daily. For 1 week then 1 two times a day for 1 week then 1 three times a day, Disp-90 Cap, R-3, DAILY Starting 02/28/2011, Until Discontinued, Oral, E-Prescribing furosemide (AKA LASIX) 40 MG tablet Take 40 mg by mouth daily as needed., DAILY PRN, Until Discontinued, Oral, Historical LORazepam (AKA ATIVAN) 0.5 MG tablet Take 2 Tabs by mouth three times a day., TID, Until Discontinued, Oral, Historical potassium chloride (AKA KLOR-CON) 10 MEQ controlled release tablet Take 20 mEq by mouth. Takes 1-2 tabs daily prn., Until Discontinued, Oral, Historical TRIMETHOPRIM OR Take 100 mg by mouth daily., DAILY, Until Discontinued, Oral, Historical Labs and Imaging tests done in the hospital with results pending at this time: None Discharge Procedure Orders Orthopaedic/Sports Medicine Referral - Adult/Peds Order Comments: Date: 03/27/2011 Time: 9:45AM, please arrive 30 mins early for Xrays Provider: Dr Karl Mcclain [facility]: Orthopaedics; [phone]; [address] [place] [id number] Scheduling Instructions: If an appointment with [facility] Orthopaedics was advised and you havenot been contacted to schedule that appointment within 3 business days, please call [phone], Option 1 for assistance. Order Specific Question Answer Comments The patient should be seen by: Orthopaedic Surgeon Reason for visit? 2 week follow up ORIF left tibia plateau, left femoral condyle, right femoral condyle When to Resume Normal Activities: Order Comments: You may resume normal activities as tolerated Occupational Therapy (OT) Referral Order Comments: EVALUATE AND TREAT- assistance with improvement of ADLs Wound/Dressing Instructions Order Comments: Keep wound clean, dry and intact. OK to clean with water. Do not scrub wound. Do notuse lotions, creams or ointments on the wound. If wound drains purulent discharge or area surrounding becomes increasingly red, swollen and painful contact Orthopaedics at #[phone]. Continue dailydressing changes for wounds that continue to drain clear fluids, discontinue use of dressings when wound become dry and are no longer draining. Order Specific Question Answer Comments Wound Measurement - Type of wound surgical Location of wound bilateral lower extremities Contact Orthopedic Surgeon Order Comments: Contact Orthopedic Surgeon if considering discontinuing or changing the anticoagulation order. Contact information (name/clinic/phone number): [phone] When to Resume Normal Activities: Order Comments: Do not resume normal activities until you are seen in the clinic DISCHARGE MD NAME Order Comments: IKARL MD, take responsibility for the discharge of this patient and have reviewed the transfer orders report for accuracy. If any other questions occur regarding this patient's orders or the plan of care, . Discharge Diagnosis Order Comments: DX: S/P ORIF TIBIAL PLATEAU FX. AND B. DISTAL FEMUR No weight bearing Order Comments: BILATERAL LOWER EXTREMITIES. Do not resume weight bearing on the affected limb(s) until your care provider tells you to do so. Other Discharge Instructions Order Comments: You will be back to [facility], at the Surgical [facility] , 1st. Floor at[address] [place], [place]. [phone] DR. MCCLAIN ON 03/27/11 9:15 AM FOR POST OPCHECK AND X RAY TAKEN Diet Order Comments: Regular Condition at Discharge: Stable Prognosis: Good Rehab Potential: Good Code Status: Full Code Lab Tests Order Comments: INR/PROTIME SCHEDULING INSTRUCTIONS (date/time): every Saturday and until INRreaches goal of 2-3.ROUTE RESULTS TO: .PMD Dr Loretta Mcmahan at [facility]. Please complete CBC-without diff one week after discharge to follow up on anemia. Last hgb inpatient 9.3. Raquel Cook PA-C documented in this encounter Discharge Instructions Discharge InstructionsEdith Pope RN - 03/16/2011 10:08 AM CDT Scheduled Future Appointments: General Information Discharging physician: Karl Mccullough MD Discharge date: 03-16-11 Discharge Disposition HOME Immunization Most Recent Immunizations Administered Date(s) Administered ??? Flu Vac (3+ yrs) 10/06/2009 ??? H1n1 Miv Csl 3+ Yr (Injected) 12/06/2009 ??? Pneumococcal, PPSV23 10/06/2009 Immunization Documentation There is documentation in the Immunization/Injection section and/or the MAR (NOT in the notes) that the patient: Pneumonia:reported previously receiving the pneumococcal vaccine and it is documented in the Immun/Injection section of the chart Influenza:reported previously receiving the vaccine (or received this year for seasonal flu) and it is documented in the Immun/Injection section of the chart Labs & Coumadin Information Patient Warfarin Monitoring in the past 240 hrs: Warfarin Dose (mg) Daily Review Responsible Provider Indications Goal INR Range Bridge Therapy Procedures / Comments 03/15/11 0643 10 MG Increased Dose MD to manage DVT/PE 2-3 Enoxaparin- Full Anticoagulation Dosing - 03/14/11 0707 7.5 MG No Change MD to manage DVT/PE 2-3 Enoxaparin- Full Anticoagulation Dosing - 03/13/11 1240 7.5 MG Resumed Dosing MD to manage DVT/PE 2-3 None surgery today Home Care Instructions INCISION CARE: Care of the Incision: keep incision site clean and dry, watch for signs of infection to include increased redness, swelling, drainage, pain, and or fever Bathing Instructions: Do not take tub baths until further instructed by MD. Valuables/Medications Disposition of Money: (not recorded) Disposition of Medications: (not recorded) Patient and/or family verified that all valuables have been returned: Yes Patient and/or family verified that all valuables removed from room safe: Yes Danger Signs Call your clinic or seek medical help if you have any sudden change in your condition or if you haveany of the following: chest pain difficulty breathing pain not relieved with usual methods shortness of breath Community Resources NONE Contact [address] [address] For questions about your discharge instructions call the nursing unit : MIGUEL Sellers, Emergency & Urgently Needed Care: For emergencies call 911 and/or get medical help right away. If you are a [employer] member and have medical needs after clinic hours you may call the CareLineat [phone] or . Smoking and second-hand smoke exposure: Smoking damages blood vessels, reduces the oxygen in your blood and makes your heart beat too fast. If you smoke you should quit. Everyone should avoid second- hand smoke. If you would like further assistance after your discharge, please contact [phone] or visit [email or web address] can offer further [...] weight will also be followed by the Low Pressure Boiler Tender when you go in for your treatment. All medical devices (telemetry/IV/etc) unless otherwise ordered, have been removed before discharge We hope you had a positive experience and that you can definitely recommend [facility] to yourfamily and friends. You???ll be receiving a survey in the mail in about 2 weeks and we look forward to hearing your feedback. When leaving your room at discharge, please stop at the nursing unit desk to check out. documented in this encounter Medications at Time of Discharge Medication Sig Dispensed Refills Start Date End Date acetaminophen (AKA Take 2 Tabs by mouth 90 Tab 2 011 10/02/2011 TYLENOL) 325 MG tablet every 6 hours as needed for Pain. atorvastatin (LIPITOR) Take 1 Tab by mouth 0 10/21/2014 40 MG tablet daily. baclofen (AKA LIORESAL) Take 40 mg by mouth 0 07/19/2011 20 MG tablet three times a day. cholecalciferol (AKA Take 1,000 Units by 0 08/10/2011 VITAMIN D3) 1000 UNIT mouth daily. tablet citalopram (AKA CELEXA) Take 40 mg by mouth 0 10/02/2011 40 MG tablet daily. cyclobenzaprine (AKA Take 1 Tab by mouth 60 Tab 0 201010/02/2011 FLEXERIL) 10 MG tablet two times a day. dantrolene (DANTRIUM) Take 1 Cap by mouth 90 Cap 3 02/2805/30/2011 25 MG capsule daily. For 1 week then 1 two times a day for 1 week then 1 three times a day enoxaparin 100 MG/ML Inject 100 mg 1400 mL 1 03/16/2011 0 08/07/2011 SOLN injection subcutaneously every 12 hours. Continue injections until INR 2-3 for 2 days. furosemide (AKA LASIX) Take 40 mg by mouth 0 11/14/2012 40 MG tablet daily as needed. LORazepam (AKA ATIVAN) Take 2 Tabs by mouth 0 09/17/2014 0.5 MG tablet three times a day. magnesium hydroxide Take 30 mL by mouth 118 mL 3 011 08/07/2011 (AKA MILK OF MAGNESIA) daily as needed for 400 MG/5ML suspension Constipation. polyethylene glycol Take 17 g by mouth 10 Each 2 03/15/20 11 10/21/2014 (AKA MIRALAX) packet daily. potassium chloride (AKA Take 20 mEq by mouth. 0 11/14/2012 KLOR-CON) 10 MEQ Takes 1-2 tabs daily controlled release prn. tablet sennosides-docusate Take 3 Tabs by mouth 0 201011/14/2012 sodium (AKA daily at bedtime. SENNA-S,SENNA PLUS) 8.6-50 MG tablet sennosides-docusate Take 2 Tabs by mouth 60 Tab 2 201003/19/2011 sodium (AKA daily. SENNA-S,SENNA PLUS) 8.6-50 MG tablet TRIMETHOPRIM OR Take 100 mg by mouth 0 10/20/2014 daily. warfarin (AKA COUMADIN) Take 2 Tabs by mouth 30 Tab 11 10/25/2011 5 MG tablet daily. Adjust dose based on INR result as directed, goal INR 2-3 documented as of this encounter Progress Notes Jennifer Seth - 03/16/2011 11:15 AM CDT [facility] Care Management Discharge Note Admission Date/Time: 03/13/2011 7:32 PM Attending MD: Karl Mcclain Discharge Plan: Anticipated Discharge Date: 03/16/11 Anticipated Discharge Time: 1130 Patient to be discharged: to Home. Patient to be accompanied by: spouse. Transportation arranged for discharge: to transport home. They have a wheelchair accessible van. Patient/Family aware of transportation benefit. Discharge equipment needs and arrangements: Jeff did have a wheelchair seating assessment and has been issued a loaner wheelchair with a follow up appointment at [facility] PT seating clinic as instructed. Jeff and his are happy to have this service and are pleased with how much more comfortable theloaner wheelchair is for Jeff. Jeff prefers to f/u at his clinic for INR draws and their local, [facility] physical therapy, for the out patient OT. I have made copies of the lab and OT order and gave to Sheron and Jeff. They will set upappointment for lab draw and OT. I have called and faxed d/c orders to Dr Loretta Mcmahan for coumadin f/u. Jeff and Sheron did not have any further questions or concerns, Jeff is anxious to get home and recover there. Discharge Disposition Code: 01: Discharged to home or self-care (routine discharge) Report completed by VALERIE Peace/PHN, Pager Number [phone] --- End of Report --- Kehinde De La Cruz, OTR/L - 03/16/2011 10:11 AM CDT [facility] Occupational Therapy - Progress Note Treatment Summary: Patient seen at bedside to address ADL's, functional transfer training and family education/trainingto prepare for d/c. Patient tolerated treatment without adverse effects and was an active participant in treatment. Pt's present during session. She will be pt's caregiver at home and participatedin session prepare for d/c. Pt donned pants with max A from his to thread B legs and slab puller hips while pt in supine. Pt able to assist by rolling using siderails. Pt completed bed mobility with mod from and use of bedrail. While seated EOB with CGA, pt donned pullover shirt with mod A from . Pt used slideboard to transfer from EOB to w/c with CGA from his . Pt propelled w/c into BR with SBA and aligned chair for toilet transfer with verbal cueing from . Pt transferred from w/c to toilet and back to w/cwith lateral slide transfer, no slideboard and min A. Pt sitting in new loaner manual w/c at end of session. Pain: no c/o pain during therapy activities Action Taken: none, patient agreed to continue therapy Education: Provided patient, family, caregiver education, training, and/or instruction in the following areas as relevant to meaningful participation in daily occupations: role of occupational therapy, provided support and encouragement and answered questions related to rehab course, ADLs, adaptive equipment reso urces and use, UE ROM/strengthening/conditioning exercises, wheelchair positioning, walker/crutch safety during ADL/IADLs and directing self-cares. Patient and/or caregiver response to teaching: verbalized understanding, demonstrated understanding,will benefit from follow up, additional training Recommendations: Assessment: Pt cont to demonstrate increase indep with ADL's and functional transfers. Pt's demonstrated ability to safely assist pt with dressing, bed mobilty and functional transfers with no safety concerns. Pt ready for d/c home with assistance from his from OT standpoint. Patient would benefit from skilled outpatient or home health OT services 3 times per week to addressdeficits with ADL's, UE function and adaptive equipment needs. Amount of time spent in patient contact: 45 minutes [facility]/Kateryna (pager [phone]) OT Dept #: [phone] - OT Weekend Pager #: [phone] - [facility] [place] Main #: [phone] Cecile Browne - 03/16/2011 8:40 AM CDT [facility] Medicine Progress Note Date of Service: 03/16/2011 Subjective: feeling well, BM yesterday after tap water enema. Tolerating diet, however appetite still poor. No return of R hip/back pain. LE edema greater than nml per . No cp/sob/f/c/n/v. BP 130/80 Pulse 97 Temp(Src) 98.2 ??F (36.8 ??C) (Oral) Resp 16 Ht 5' 10 (1.778 m) Wt 105.688 kg (233 lb) BMI 33.43 kg/m2 SpO2 97% Physical Exam: General Appearance: 65 yr male in NAD Respiratory: Regular respirations. Clear to auscultation bilaterally, no whezzing, rhonci, or rales Cardiovascular: Regular rate and rhythm. Normal S1, S2. No murmurs, rubs or gallops. Abdomen: Soft, normoactive bowel sounds. Non-tender, non-distended. Musculoskeletal: 3+ non-pitting edema in LE with chronic edema Neurologic: alert and conversant All Labs reviewed: Lab Results Component Value Date/Time HGB 9.3* 03/15/11 06:43 AM HGB 9.3* 03/14/11 07:07 AM HGB 12.7* 03/13/11 12:40 PM Lab Results Component Value Date/Time INR 1.5 03/16/11 06:56 AM INR 1.3 03/15/11 06:43 AM INR 1.1 03/14/11 07:07 AM INR 3.0 05/22/10 12:05 PM Assessment /Plan: 65 y/o male h/o paraplegia and osteoporosis s/p plating of bilateral femoral condyles and left medial tibial plateau fracture. 1) Chronic DVT: Outpatient regiment-10mg on Saturday and 7.5mg . --INR continues to be sub-therapeutic, continue therapeutic enoxaparin dose as well as 10mg warfarindaily until reaches goal INR 2-3 --INR checks biweekly on dc(ordered) 2) Chronic constipation: home stool regimen is qod: senna plus 2 in AM, 3 in PM; miralax in AM; enema when feel the urge to have BM. --BM yesterday after tap water enema. 3) Hypercholesterolemia: continue statin 4) LE edema: on average taking lasix 3 times weekly. Give 40mg today with increased LE edema. 5) Neurogenic bladder: pt well aware of signs of UTI. Continue monthly green changes. 6) Acute blood loss anemia: hgb drop 3g postop.hgb stable. Recommend repeat hgb as outpatient to monitor trend with h/o anemia 7) s/p plating of bilateral femoral condyles and left medial tibial plateau fracture - DVT prophylaxis (bridge lovenox to coumadin), pain management, activity per ortho Carl Cullen is stable for discharge from Internal Medicine perspective (orders complete) Cecile Browne PA-C [facility] [phone] GaugerRaudel - 03/16/2011 7:25 AM CDT Orthopaedic Surgery Progress Note S: no issues overnight, no pain O: BP 114/74 Pulse 100 Temp(Src) 99.6 ??F (37.6 ??C) (Oral) Resp 12 Ht 5' 10 (1.778 m) Wt105.688 kg (233 lb) BMI 33.43 kg/m2 SpO2 98% General: nad, appears comfortable Pulm: nonlabored breathing BLE: dressing changed, incisions CDI, no sensation/movemet (basline), toes wwp A/P: 65M c paraplegia POD #3 s/p ORIF L tibial plateau, ORIF B distal femur - Pain mgmt - DVT prophylaxis: Coumadin- consulted medicine for assistance with management - PT/OT consult - Patient is cleared for transfers as tolerated. Patient does not weight bear - f/u with Dash in 2 wks. -Dispo: d/c today Raudel Starr MD G2 Orthopaedic Resident [phone] Awilda Knox RN - 03/16/2011 3:32 AM CDT [facility] Progress Note (Nursing) Identify/Problem(s): Comfort Desired Outcome(s): Pt will be comfortable with no complaints of pain. Evaluation: BP 114/74 Pulse 100 Temp(Src) 99.6 ??F (37.6 ??C) (Oral) Resp 12 Ht 5' 10 (1.778 m) Wt 105.688 kg (233 lb) BMI 33.43 kg/m2 SpO2 98% Pt denied pain. Kai wrap dressings changed by Resident. Green output 1200 ml. Per , manual wheelchair will be delivered at 0900 today. Plan: Awaiting OT recommendations for DC (per possible DC today vs tomorrow). Awilda Friedman RN --- End of Report --- Corie Jimenez RN - 03/15/2011 9:59 PM CDT [facility] Progress Note (Nursing) Identify/Problem(s): GI/pain Desired Outcome(s): Pt. will regain his normal gi functions back and pain will be at tolerable level. Evaluation: Alert/oriented x 4, bs+, abd. is tender and distended, was given tap H2O enema this shift with Medium result, up in the chair for hrs. Tolerated well, medicated with vics. For pain with relief, green draining with clear yellow urine with good amounts. Plan: Monitor gi ,medicate with pain meds. as needed, possible DC'D tomorrow. Corie Han RN --- End of Report --- Kehinde De La Cruz, OTR/L - 03/15/2011 3:45 PM CDT [facility] Occupational Therapy - Progress Note Treatment Summary: Patient seen at bedside to address ADL's and functional transfer training. Patient tolerated treatment without adverse effects and was an active participant in treatment. Pt supine in bed to begin session, requested to use toilet. Pt completed bed mobility with min-mod Ausing siderails. Pt transferred from EOB to w/c with slideboard and CGA x 2. Pt propelled w/c into BR and positioned chair next to toilet with SBA. Pt transferred onto toilet with min-mod A x 2 using slideboard. Pt required max A for toileting to manage clothing, however, pt able to lift his buttocks off toilet seat using side grab bars while he was assisted with clothes. Pt's reported this is how they were completing toileting at home prior to hospitalization. RN present in room and administered enema. Pt requested to remain on toilet after session. RN notified and agreed to assist pt when toileting complete. After session, pt's reported pt is doing very well and close to baseline with level of A required for ADL's, functional transfers. Pain: no c/o pain during therapy activities Action Taken: none, patient agreed to continue therapy Education: Provided patient, family education, training, and/or instruction in the following areas as relevant to meaningful participation in daily occupations: role of occupational therapy, provided support and encouragement and answered questions related to rehab course, ADLs, wheelchair positioning and home mo difications/environmental access. Patient and/or caregiver response to teaching: verbalized understanding, demonstrated understanding,requires additional training OT recommending w/c seating eval eval/consult due to size and fit of pt's current manual w/c. Physician's optometrist assistant and clinical trial data manager Jennifer contacted to request order for w/c eval. PT informed of requested orders. Recommendations: Patient will benefit from continued skilled Occupational Therapy services to address deficits with ADL's, adaptive equipment needs and functional transfer training. The patient would benefit from ongoing Occupational Therapy for 30-60 minutes daily for 2-3 more days to meet therapy goals. Pt will benefit from follow up OT outpt or HH following d/c from acute care to improve performance in ADL's, functional transfers and as a result decrease caregiver burden for . Amount of time spent in patient contact: 30 minutes [facility] Lee/Kateryna (pager [phone]) OT Dept #: [phone] - OT Weekend Pager #: [phone] - [facility] [place] Main #: [phone] Bayron Bernstein RN - 03/15/2011 2:20 PM CDT [facility] Progress Note (Nursing) Identify/Problem(s): Pain/Comfort Constipation Mobility Desired Outcome(s): Pt will verbalize adequate control of pain Pt will tolerate increased activity Evaluation: A/O X 4, VSS, CMS intact. Pt c/o left hip pain described as cramping/tightness. Medicated with 2 tabs vicodin. Pt reported good relief of pain with this medication. Constipation has persisted this shift despite giving the pt scheduled senna and miralax, prn MOM with hot prune juice, and a fleet enema. PT/RN assisted pt to toilet via wheelchair to facilitate BM with no results. RN offered to attempt asuppository, pt refused and stated that he would like to receive a suppository in the evening. Eating/drinking adequately. Voided adequate volume of clear/yellow urine via green catheter. Pt currently resting comfortably in wheelchair in preparation for wheelchair seating consult. Plan: Discussed plan of care with patient, family and provider. Monitor pain, treat with oral pain meds. Monitor GI status, administer suppository this evening. Facilitate PT/OT. Bayron Bernstein RN --- End of Report --- Mitch Kirkland - 03/15/2011 1:10 PM CDT [facility] [facility] NOTE - The pt received communion today. Fr. Mitch Kirkland [facility] Cecile Browne - 03/15/2011 11:47 AM CDT [facility] Medicine Progress Note Date of Service: 03/15/2011 Subjective: no further R hip back pain. States that he was unable to have BM today, even after enema. Tolerating diet. No sob/cp/fevers/chill. BP 130/75 Pulse 91 Temp(Src) 98.9 ??F (37.2 ??C) (Oral) Resp 16 Ht 5' 10 (1.778 m) Wt 105.688 kg (233 lb) BMI 33.43 kg/m2 SpO2 99% Physical Exam: General Appearance: 65 yr male in NAD Respiratory: Regular respirations. Clear to auscultation bilaterally, no whezzing, rhonci, or rales Cardiovascular: Regular rate and rhythm. Normal S1, S2. No murmurs, rubs or gallops. Abdomen: Soft, normoactive bowel sounds. Non-tender, non-distended. Musculoskeletal: bilateral lower extremities wrapped in kai bandages. Neurologic: alert and conversant All Labs reviewed: Lab Results Component Value Date/Time HGB 9.3* 03/15/11 06:43 AM HGB 9.3* 03/14/11 07:07 AM HGB 12.7* 03/13/11 12:40 PM Lab Results Component Value Date/Time INR 1.3 03/15/11 06:43 AM INR 1.1 03/14/11 07:07 AM Assessment /Plan: 65 y/o male h/o paraplegia and osteoporosis s/p plating of bilateral femoral condyles and left medial tibial plateau fracture. 1) Spacisty of LE bilaterally: on baclofen 40mg tid (minimally effective per patient) 2) Chronic DVT: increase coumadin at 10mg. inr subtherapeutic. Outpatient regiment-10mg on Saturday and 7.5mg -Sat. 3) Chronic constipation: home stool regimen is qod: senna plus 2 in AM, 3 in PM; miralax in AM; enema when feel the urge to have BM. --enema today without result. Continue above regiment with repeat enema prn 4) Hypercholesterolemia: continue statin 5) HTN: on Lasix -continue. Repeat K in am. 6) Osteoporosis: continue Vit D supplement; endocrine not wanting to start alendronate yet. 7) Depression: continue citalopram 8) Neurogenic bladder: with chronic indwelling catheter that changes monthly. No recent UTI. Leave green in postop 9) Hip pain: improved. Work with PT/OT. Massage consulted. 10) Acute blood loss anemia: hgb drop 3g postop.hgb stable. 11) s/p plating of bilateral femoral condyles and left medial tibial plateau fracture - DVT prophylaxis (bridge lovenox to coumadin), pain management, activity per ortho Cecile Browne PA-C [facility] [phone] GaugerRaudel - 03/15/2011 8:24 AM CDT Orthopaedic Surgery Progress Note S: no issues overnight, no pain, transfers with OT yesterday O: BP 103/51 Pulse 82 Temp(Src) 99.5 ??F (37.5 ??C) (Oral) Resp 16 Ht 5' 10 (1.778 m) Wt 105.688 kg (233 lb) BMI 33.43 kg/m2 SpO2 94% General: nad, appears comfortable Pulm: nonlabored breathing BLE: KAI wrap in place, CDI, no sensation/movemet (basline), toes wwp A/P: 65M c paraplegia POD #2 s/p ORIF L tibial plateau, ORIF B distal femur - Pain mgmt - DVT prophylaxis: Coumadin- consulted medicine for assistance with management - OT consult: ADLs. NO PT CONSULT ORDERED - Patient is cleared for transfers as tolerated. Patient does not weight bear - Hemogram ordered POD #1,2,3 - f/u with [facility] in 2 wks. -Dispo: will need 3-4 more days of OT Raudel Starr MD G2 Orthopaedic Resident [phone] Awilda Knox RN - 03/15/2011 4:04 AM CDT [facility] Progress Note (Nursing) Identify/Problem(s): Comfort Desired Outcome(s): Pt will be comfortable with no complaints of pain. Evaluation: BP 103/51 Pulse 82 Temp(Src) 99.5 ??F (37.5 ??C) (Oral) Resp 16 Ht 5' 10 (1.778 m) Wt 105.688 kg (233 lb) BMI 33.43 kg/m2 SpO2 94% Pt denied pain. Green output 750 ml. Kai wraps on BLE CDI. Plan: Continue to monitor; DC plans TBD. Awilda Friedman RN --- End of Report --- Corie Welsh RN - 03/14/2011 11:53 PM CDT [facility] Progress Note (Nursing) Identify/Problem(s): Mobility/pain Desired Outcome(s): Pt. will transfer to w/c with minimal assist safely And pain will be adequately control. Evaluation: Pt. is up in the chair by PT for 1 hr. Then transfer with 2 assist back to bed tolerated well, alert/oriented x 4, bs+, encourage to use his IS, medicated with vics. For pain with relief, is here for tonight. Plan: Pt. needs somebody with all transfers and treat pain accordingly. Corie Han RN --- End of Report --- Bayron Bernstein RN - 03/14/2011 6:04 PM CDT [facility] Progress Note (Nursing) Identify/Problem(s): Pain/Comfort Mobility Desired Outcome(s): Pt will verbalize adequate control of pain Pt will tolerate increased movement Evaluation: A/O x 4, paraplegic w/ BLE ORIF. Dressings CDI. Pt c/o lower back pain and headache. Medicated with IV dilaudid. Pt verbalized relief of pain with this medication. Pt tolerated turning q2h and transferto wheelchair assist of 2-3. IV fluids d/c as pt was taking in adequate volume of oral fluids. Urineoutput clear/yellow urine via green was adequate. Catheter resumed due to neurogenic bladder. No BM this shift. Plan: Discussed plan of care with patient, family and provider. Monitor pain, intervene as needed. Obtain order for oral pain medication. Turn q2h, facilitate OT. Bayron Bernstein RN --- End of Report --- Cecile rBowne - 03/14/2011 6:00 PM CDT [facility] Medicine Progress Note Date of Service: 03/14/2011 Subjective: feeling well. Reports of severe low back/hip pain today that has been occuring intermittently for the past month or so. Pt attributes to not having hip flexers stretched often enough. Denies chest pain, shortness of breath, fevers, chills, nausea, or vomiting. BP 92/58 Pulse 103 Temp(Src) 97.4 ??F (36.3 ??C) (Oral) Resp 16 Ht 5' 10 (1.778 m) Wt 105.688 kg (233 lb) BMI 33.43 kg/m2 SpO2 100% Physical Exam: General Appearance: 65 yr male in NAD HEENT: PERRL. Oral mucosa moist Respiratory: Regular respirations. Clear to auscultation bilaterally, no whezzing, rhonci, or rales Cardiovascular: Regular rate and rhythm. Normal S1, S2. No murmurs, rubs or gallops. Abdomen: Soft, normoactive bowel sounds. Non-tender, non-distended. Musculoskeletal: 2+ edema in bilateral lower extremities, both legs are wrapped. . Neurologic: alert and conversant All Labs reviewed: Lab Results Component Value Date/Time HGB 9.3* 03/14/11 07:07 AM HGB 12.7* 03/13/11 12:40 PM HGB 10.5* 05/30/10 12:28 PM Last Chem10 results: Lab Results Component Value Date/Time SODIUM 141 03/14/11 07:07 AM K 3.9 03/14/11 07:07 AM CHLORIDE 104 03/14/11 07:07 AM CO2 29 03/14/11 07:07 AM BUN 16 03/14/11 07:07 AM CREATININE 1.05 03/14/11 07:07 AM GLUCOSE 86 03/14/11 07:07 AM CA 8.4 03/14/11 07:07 AM ANIONGAP 7 03/14/11 07:07 AM MG 2.1 05/07/10 06:05 AM PHOS 3.7 05/07/10 06:05 AM Lab Results Component Value Date/Time INR 1.1 03/14/11 07:07 AM INR 1.0 03/13/11 12:40 PM Assessment /Plan: 65 y/o male h/o paraplegia and osteoporosis s/p plating of bilateral femoral condyles and left medial tibial plateau fracture. s/p plating of bilateral femoral condyles and left medial tibial plateau fracture - DVT prophylaxis (bridge lovenox to coumadin), pain management, activity per ortho Spacisty of LE bilaterally: on baclofen 40mg tid (minimally effective per patient) Chronic DVT: restart coumadin at 7.5mg, with lovenox 100mg bid (based on weight of 105 kg) INR in am. Chronic constipation: home stool regimen is qod: senna plus 2 in AM, 3 in PM; miralax in AM; enema when feel the urge to have BM. Hypercholesterolemia: continue statin HTN: on Lasix -continue. Repeat K in am. Osteoporosis: continue Vit D supplement; endocrine not wanting to start alendronate yet. Depression: continue citalopram Neurogenic bladder: with chronic indwelling catheter that changes monthly. No recent UTI. Leave green in postop Hip pain: follow up with PT/OT. Consider massage therapy. Electrolytes nml. Unable to turn pt on own-assess tomorrow. Acute blood loss anemia: hgb drop 3g postop. Asymptomatic. Monitor for tachycardia/hypotension. Cecile Browne PA-C [facility] [phone] Jennifer Seth - 03/14/2011 2:21 PM CDT [facility] Care Management Turner Machine Operator Initial Assessment Admission Date/Time: 03/13/2011 5:03 PM Attending MD: Karl Mcclain Data Carl Cullen was referred to this Turner Machine Operator for discharge planning. Chart reviewed, discussed with interdisciplinary team, as well as with patient and family. 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 Insurance: Payor: MEDICARE PART B ONLY [id number] Plan: MEDICARE PART B ONLY Product Type: Medicare Current Living Situation: Patient lives with their spouse. Support System: / family Services Involved: Jeff has been using [facility] physical therapy in [facility]. Additional Data: PMD Dr Loretta Mcmahan at [facility]. Coordination of Care and Referrals: Provided patient/family with options for d/c Barriers to Discharge: patient continues to require acute medical care Assessment I met with Jeff and his Sheron to explain Care Management role and to discuss d/c planning. Pauives at home with his in a handicap accessible home. He has been independent with transfers, driving and most ADL's. They do not have any other help in the home at this time. 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 Jeff and his have paid out of pocket for most equipment with only the electric wheelchair being covered by medicare 3 years ago. Sheron mentioned that his regular wheelchair they obtained via an [employer] and Jeff has never been assessed for seating. Their PM&R doctor, Dr Randle, reccommended to have this wheelchair seating assessed because they were concerned that the back did not support well and that the seat width may be too small. I contacted Kehinde in OT to update on this Wheelchair seating issue. Kehinde will talk with Jeff and look over wheelchair, they will notify me if further W/C seating appointment is needed. Jeff uses [employer] for urinary catheters and supplies. Jeff has not been to a TCU in the past and prefers to d/c home. PMD is Dr Mcmahan at [facility] ( usually every three weeks for INR draws) PM&R is Dr Randle at [facility]. Plan Anticipated Discharge Date: TBD Anticipated Discharge Plan: home with family? Plan for Follow Up: Will follow Report completed by Jennifer Seth RN BAN/PHN, Pager Number [phone] --- End of Report --- Raudel Starr - 03/14/2011 8:09 AM CDT Orthopaedic Surgery Progress Note S: no issues overnight, no pain O: BP 89/59 Pulse 90 Temp(Src) 98.4 ??F (36.9 ??C) (Oral) Resp 18 Ht 5' 10 (1.778 m) Wt 105.688 kg (233 lb) BMI 33.43 kg/m2 SpO2 98% General: nad, appears comfortable Pulm: nonlabored breathing BLE: KAI wrap in place, CDI, no sensation/movemet (basline), toes wwp A/P: 65M c paraplegia POD #1 s/p ORIF L tibial plateau, ORIF B distal femur - Pain mgmt: Ordered - DVT prophylaxis: Coumadin- consulted medicine for assistance with management - Abx: continue Ancef for total of 24 hours - OT consult: ADLs. NO PT CONSULT ORDERED - Patient is cleared for transfers as tolerated. Patient does not weight bear - medicine consult - XR 2vws R knee, XR 2 vws L knee POD# 1 - Hemogram ordered POD#1,2,3 - f/u with [facility] in 2 wks. Raudel Starr MD G2 Orthopaedic Resident [phone] Awilda Knox RN - 03/14/2011 2:38 AM CDT [facility] Progress Note (Nursing) Identify/Problem(s): Comfort Desired Outcome(s): Pt will be comfortable with no complaints of pain. Evaluation: Patient Vitals in the past 8 hrs: BP Temp Temp src Pulse Resp SpO2 03/14/11 0317 104/67 mmHg 98.6 ??F (37 ??C) Oral 93 18 97 % 03/13/11 2330 97/61 mmHg 98.3 ??F (36.8 ??C) Oral 92 16 98 % 03/13/11 2230 93/55 mmHg 97.9 ??F (36.6 ??C) Oral 88 16 99 % 03/13/11 2130 105/63 mmHg - - 88 16 100 % Pt a/ox4, at bedside. Medicated with Dilaudid 0.6 mg for general ache/discomfort with stated relief. Kai dressings on BLE CDI. Green output 300 ml. Plan: Continue to monitor. Awilda Friedman, RN --- End of Report --- Awilda Knox RN - 03/14/2011 12:23 AM CDT [facility]. MD Notified Note Name of MD notified: Esmer Cruz Time of MD notification: 0000 hours and 10 minutes Reason: What specific time do you want Enoxaparin to start? Response: Changed to Q 12 Hrs-start at 0800. (Initially it was ordered at 2315, only 6 hrs after surgery). Awilda Friedman RN --- End of Report --- Lisette Hill RN - 03/13/2011 11:21 PM CDT [facility] Progress Note (Nursing) Identify/Problem(s): S/Post-op Desired Outcome(s): Patient will be stable and will have no post-op complication Evaluation: A/O x 4,VSS.afebrile.Patient paraplegic,he can move upper body and arms. BLE kai wrapped up to his thighs.Circulation intact. Complaint of right shoulder pain,medicated with dilaudid 1x with good relief. Patient green intact with 250ml urine output.Patient turned and repositioned on his side.Clear liquid started,patient only drinks juices.Kept comfortable. Plan: Will continue to monitor patient Lisette Espinal RN --- End of Report --- Florinda Voss PharmD - 03/13/2011 7:43 PM CDT [facility] Clinical Pharmacy Medication Reconciliation Note Medication History: Outpatient prescriptions marked as taking for the 03/13/11 encounter (Hospital Encounter) with KARL MCCLAIN: atorvastatin (LIPITOR) 40 MG tablet Take 1 Tab by mouth daily. baclofen (AKA LIORESAL) 20 MG tablet Take 40 mg by mouth three times a day. cholecalciferol (AKA VITAMIN D3) 1000 UNIT tablet Take 1,000 Units by mouth daily. citalopram (AKA CELEXA) 40 MG tablet Take 40 mg by mouth daily. cyclobenzaprine (AKA FLEXERIL) 10 MG tablet Take 1 Tab by mouth two times a day. dantrolene (DANTRIUM) 25 MG capsule Take 1 Cap by mouth daily. For 1 week then 1 two times a day for1 week then 1 three times a day (02/28/11) docusate sodium (AKA ENEMEEZ) 283 MG enema Insert 5 mL rectally daily as needed. PT. USES ENEMA EVERY OTHER DAY. furosemide (AKA LASIX) 40 MG tablet Take 40 mg by mouth daily as needed. LORazepam (AKA ATIVAN) 0.5 MG tablet Take 2 Tabs by mouth three times a day. polyethylene glycol 3350 (MIRALAX) powder Take 17 g by mouth every other day. potassium chloride (AKA KLOR-CON) 10 MEQ controlled release tablet Take 20 mEq by mouth. Takes 1-2 tabs daily prn. senna (AKA SENOKOT) 8.6 MG tablet Take 3 Tabs by mouth every other day. TRIMETHOPRIM OR Take 100 mg by mouth daily. warfarin (AKA COUMADIN) 5 MG tablet Take 1 Tab by mouth daily. Adjust dose based on INR result as directed. Medications Reviewed and Reconciled: Any medication adjustments made from patient's medication history regimen are appropriate for current hospitalization and medical condition. Home meds not yet resumed. Medicine consult ordered. Will follow when home meds resumed. PHARMACIST NAME: Florinda Voss Phone/Pager #: [phone] --- End of Report --- documented in this encounter Procedure Notes [facility] ANESTHESIA, PROVIDER - 03/17/2011 3:44 AM CDT [facility], PROVIDER - 03/17/2011 3:44 AM CDTAssociated Order(s): EKG IP; EKG IP [facility] ANESTHESIA, PROVIDER - 03/17/2011 3:44 AM CDT [facility] ANESTHESIA, PROVIDER - 03/14/2011 4:52 PM CDT [facility]ES[facility], PROVIDER - 03/14/2011 4:52 PM CDT [facility], PROVIDER - 03/14/2011 4:52 PM CDT Karl Mcclain - 03/13/2011 6:10 PM CDT DATE OF SERVICE: 03/13/2011 DATE OF SURGERY: 03/13/2011 PREOPERATIVE DIAGNOSIS: 1. Right lateral femoral condyle fracture. 2. Left lateral femoral condyle fracture. 3. Left medial tibial plateau fracture. POSTOPERATIVE DIAGNOSIS: 1. Right lateral femoral condyle fracture. 2. Left lateral femoral condyle fracture. 3. Left medial tibial plateau fracture. SURGEON: Karl Mcclain MD PROCEDURE: 1. Plating of right lateral femoral condyle. 2. Plating of left lateral femoral condyle. 3. Plating of left medial tibial plateau fracture. PATIENT HISTORY: The patient is paraplegic and has been doing various stretching exercises [id number] rotation stretching of his hips. That started a couple of weeks ago and we are suspicious that this caused some of his fractures. They look like they are partially healed. The concern isthat these will continue to shift and deteriorate further if not fixed in place. He and his understand the risks of the procedure including infection, bleeding, pain, numbness, tingling, further stiffness, deep venous thrombosis and pulmonary embolism. DESCRIPTION OF PROCEDURE: The patient was taken to the operating room, placed in a supine position and then underwent successful induction of general anesthesia. Both legs were washed and sterilely prepped and draped. We began with sterile tourniquets on both and then inflated the one on the left. We made an incision over the lateral femoral condyle sharply through the skin and divided the subcutaneous tissue and fascia down to bone. We inserted a short plate and through the central hole placed a guidewire distally. This was for the large 7.3 screw. We measured and placed a conical screw to compress the condyle. We noted that the condyle was not easily movable and so we did not attempt to reduce it any more than apply compression to it. Once this was done, we placed a bicortical screw percutaneously through the middle of the plate and then put additional 3 locking screws distally and 1 cortical screw at the proximal end and 2 at the distal end of the body of the plate. Having done this, we copiously irrigated and closed our 3 percutaneous proximal incisions with 2- 0 Vicryl and 4-0 Monocryl. The distal incision we closed with 0 Vicryl in the fascia, 2-0 Vicryl in the subcutaneous tissue and Monocryl in the skin, but we had some skin that gave way so nylons were applied. We then turned to the right femur, where we did essentially the same procedure. We made an incision laterally, went through the subcutaneous tissue and fascia with cautery and placed a plate in submuscular and then placed the central screw as a conical nonlocking screw. We had excellent purchase with the screw and then proceeded to fill the other screws in the plate. We had 2 locking screws proximal to the fracture and 2 nonlocking screws. We had 3 additional locking screws distally. We irrigated this out and closed with number 1 Vicryl in the deep fascia, 2-0 Vicryl in the subcutaneous tissue and 4-0 Monocryl in the skin of all incisions. Then on the left tibia, we made an incision longitudinally over the medial tibial plateau and dissected over an area that was at the level of the fracture. We placed a Synthes medial proximal tibia plate in right along the periosteum of the bone. We adjusted its height on C-arm and then placed first a conical screw to keep the plate snugged down onto thebone and compress the fracture. We then placed two additional screws under the tibial plateau and 3 screws in the body of the plate to the angle up into the plateau area and one that was down in the shaft. These last 3 screws were all locking screws. We then copiously irrigated out that incision, closed the deep fascia with 0 Vicryl, used 2-0 Vicryl in the subcutaneous tissue, 4-0 Monocryl in the skin. We then applied Steri-Strips to all of the incisions, except the ones with nylon and then island dressings over the top of everything else. Bilateral Kai wraps were placed. The patient was extubated and taken to the recovery room. There were no specimens and the blood loss estimate is 250 mL. Karl Mcclain MD RN RADIATION:nelly Dictated: 03/13/2011 18:10:30 Transcribed: 03/13/2011 19:26:48 Job: [id number] Doc: [id number] cc: Raquel Cook - 03/13/2011 5:[address] [facility] Brief Operative Note Name: Carl Cullen Age: 65 yr Gender: male Attending Provider: Karl Mcclain Date: 03/13/2011 Preop dx: Left tibia plateau, right femoral condyle, left femoral condyl fractures Postop dx: same Procedure: ORIF Left tibia plateau, ORIF right femoral condyle, ORIF left femoral condyl Surgeon: Dr Karl Mcclain Conference Services Director: Raquel Cook PA-C Anesthesia: General IVF: 1800 mL crystalloid. U/O: 500 mL EBL: 250 cc Tourniquet time: Left: 83 mins Right: 51 mins Complications: None Plan: - Admit to PACU then Orthopaedic service (Dr. Mcclain) - Pain mgmt: Ordered - DVT prophylaxis: Coumadin- consulted medicine for assistance with management - Abx: continue Ancef for total of 24 hours - OT consult: ADLs. NO PT CONSULT ORDERED - Patient is cleared for transfers as tolerated. Patient does not weight bear - medicine consult - XR 2vws R knee, XR 2 vws L knee POD# 1 - Hemogram ordered POD#1,2,3 - f/u with Dash in 2 wks. I was asked to assist Dr. Mcclain with the above noted case. I was present for patient positioning, prepping and draping. I provided routine interoperative assistance including soft tissue retraction and limb manipulation to facilitate ease of surgery for the attending physician. I closed the incisions and placed sterile dressings. I accompanied patient to PACU in stable condition. Procedure completed was as consented. There were no residents available for the case. Raquel oCok PA-C 03/13/2011, 5:12 PM [phone] pager documented in this encounter Consult Notes Esmer Cruz - 03/13/2011 11:19 PM CDTAssociated Order(s): MEDICINE INPT CONSULT [facility]. [facility] Medicine Consultation Note (MD) Date of service: 03/13/2011 I was asked by Dr. Islas to provide my opinion and/or advice in regards of DVT management and general medicine orders for Carl Cullen. History of present illness: Carl Cullen is a 65 yr old male with a h/o paraplegia and osteoporosis. He was found to havebilateral femoral fractures and left tibial fracture, thought to be secondary to PT exercises. They did not heal on their own, and he was scheduled for today for surgical repair. Since being brought upfrom the OR, he is feeling well, pain is controlled, no complaints. He is on Coumadin lifelong for chronic DVT. He had an IVC filter placed in 1999. His regular dose is10mg on Saturday with 7.5mg the other 6 days of the week. This was held prior to surgery. Past Medical History Diagnosis Date ??? 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 However resection was incomplete due [...] postop bleed cmpl ??? Total knee replacement (74911) right ??? Ivc filter placement 1999 Family History Problem Relation Age of Onset ??? Cancer, Colon Mother ??? Cancer, Other Brother brother with throat cancer ??? Cancer, Breast Sister ??? Osteoporosis Mother no history of fractures Social History Occupational History ??? [employer] ??? [employer] ??? retired/disability Social History Main Topics ??? Smoking status: Never Smoker ??? Smokeless tobacco: Not on file ??? Alcohol Use: No ??? Drug Use: No ??? Sexually Active: Yes -- Female partner(s) Current outpatient medications: Outpatient prescriptions marked as taking for the 03/13/11 encounter (Hospital Encounter) with KARL MCCLAIN: atorvastatin (LIPITOR) 40 MG tablet Take 1 Tab by mouth daily. Disp: Rfl: baclofen (AKA LIORESAL) 20 MG tablet Take 40 mg by mouth three times a day. Disp: Rfl: cholecalciferol (AKA VITAMIN D3) 1000 UNIT tablet Take 1,000 Units by mouth daily. Disp: Rfl: citalopram (AKA CELEXA) 40 MG tablet Take 40 mg by mouth daily. Disp: Rfl: cyclobenzaprine (AKA FLEXERIL) 10 MG tablet Take 1 Tab by mouth two times a day. Disp: 60 Tab Rfl: 0 dantrolene (DANTRIUM) 25 MG capsule Take 1 Cap by mouth daily. For 1 week then 1 two times a day for1 week then 1 three times a day Disp: 90 Cap Rfl: 3 docusate sodium (AKA ENEMEEZ) 283 MG enema Insert 5 mL rectally daily as needed. PT. USES ENEMA EVERY OTHER DAY. Disp: 15 Each Rfl: 0 furosemide (AKA LASIX) 40 MG tablet Take 40 mg by mouth daily as needed. Disp: Rfl: LORazepam (AKA ATIVAN) 0.5 MG tablet Take 2 Tabs by mouth three times a day. Disp: Rfl: polyethylene glycol 3350 (MIRALAX) powder Take 17 g by mouth every other day. Disp: Rfl: potassium chloride (AKA KLOR-CON) 10 MEQ controlled release tablet Take 20 mEq by mouth. Takes 1-2 tabs daily prn. Disp: Rfl: senna (AKA SENOKOT) 8.6 MG tablet Take 3 Tabs by mouth every other day. Disp: 30 Tab Rfl: 0 TRIMETHOPRIM OR Take 100 mg by mouth daily. Disp: Rfl: warfarin (AKA COUMADIN) 5 MG tablet Take 1 Tab by mouth daily. Adjust dose based on INR result as directed. Disp: 30 Tab Rfl: 11 Allergies: Zaroxolyn and Oxycodone Review of Systems: The remainder of the complete review of systems is negative. Physical Examination: Vital signs: BP 93/55 Pulse 88 Temp(Src) 97.9 ??F (36.6 ??C) (Oral) Resp 16 Ht 5' 10 (1.778m) Wt 105.688 kg (233 lb) BMI 33.43 kg/m2 SpO2 99% General: Pleasant, alert, NAD Skin: no rashes, ulcers, or skin lesions seen; no nodules, induration, or tightening palpated. Head: atruamtic, normocephalic, no pathological facies Eye exam is normal - EOMI, no periorbital cellulitis. Ear/Nose/Mouth: External ears and nose are without lesions. Hearing is grossly intact. Teeth and gums show no sign of inflammation. Oropharynx shows no sign of inflammation or exudate Neck: no masses, trachea is midline, no crepitus, thyroid not enlarged Chest: nontender to palpation, clear to auscultation bilaterally, no wheezes, rhonchi, or rales. Cardiac: regular S1 and S2 without extra heart sounds or any murmurs, rubs, or gallops. PMI not displaced. Abdomen: the abdomen is soft without tenderness, guarding, mass, rebound or organomegaly. Bowel sounds are normal. No CVA tenderness or inguinal adenopathy noted. Neurologic: Cranial nerves II-XII intact; DTRs symmetric; Sensation intact to light touch in upper extremities; no sensation in lower extremities. Musculoskeletal: normal AROM in bilateral upper extremities. no cyanosis or petechiae seen; extremities show no sign of deformity, atrophy, tenderness. Right toes with edema and warmth > than left side, no erythema. DATA: Labs: Results for orders placed during the hospital encounter of 03/13/11 (from the past 24 hour(s)) HEMOGRAM/PLTS Component Value Range ??? WBC 6.3 4.0 - 11.0 (k/ul) ??? RBC 4.14 (*) 4.5 - 5.9 (M/ul) ??? HGB 12.7 (*) 13.5 - 17.5 (g/dl) ??? HCT 37.7 (*) 41.0 - 53.0 (%) ??? MCV 91.0 80 - 100 (fl) ??? MCH 30.7 26 - 34 (pg) ??? MCHC 33.8 32 - 36 (g/dl) ??? RDW 16.0 (*) 11.5 - 14.5 (%) ??? PLTS 162 150 - 450 (k/ul) ??? MPV 11.4 (*) 6.5 - 10.0 (fl) TYPE & CROSSMATCH-UNITS AVAIL FOR 3 DAYS Component Value Range ??? ABO/RH(D) A NEGATIVE ??? ANTIBODY SCREEN NEGATIVE ??? CROSSMATCH EXPIRES 03/16/2011 INR/PROTIME Component Value Range ??? PROTIME 13.2 12.0 - 14.5 (sec) ??? INR 1.0 BB HOLD TUBE ([facility] ONLY) Component Value Range ??? BB HOLD TUBE Blood Bank save tube expires in 3 days Assessment and Plan: 65 y/o male h/o paraplegia and osteoporosis s/p plating of bilateral femoral condyles and left medial tibial plateau fracture. ?? s/p plating of bilateral femoral condyles and left medial tibial plateau fracture - ortho placed pain med orders with stool regimen - I adjusted stool regimen based on his chronic constipation mgmt - see below. ?? Spacisty of LE bilaterally: on baclofen 40mg tid - give evening dose tonight and start regular therapy tomorrow ?? Chronic DVT: restart coumadin at 7.5mg, with lovenox 100mg bid (based on weight of 105 kg) x5-7 days until INR 2-3. Previous coumadin dose was 10mg on Saturday and 7.5mg . ?? Chronic constipation: home stool regimen is qod: senna plus 2 in AM, 3 in PM; miralax in AM; enema when feel the urge to have BM. Last time he had a surgery, he did his stool regimen daily, which wewill do for this stay as well. ?? Hypercholesterolemia: continue statin ?? HTN: on Lasix -continue. Also on K-Dur, however dose was prn - check BMP in AM and replace K as appropriate. ?? Osteoporosis: continue Vit D supplement; endocrine not wanting to start alendronate yet. Patient is to get 1500mg Ca through diet, but can supplement with vitamins as needed - will not supplement bud should be able to get back to his normal diet within a few days. ?? Depression: continue citalopram ?? DVT prophylaxis: bridging coumadin with lovenox. ?? FULL CODE. Time I spent in consultation on this patient was 70 minutes, over 50% of which was spent in counseling and coordinating care. Report Completed by: Esmer Cruz PA-C Pager: [phone] documented in this encounter OR Notes H&P - [facility], PROVIDER - 03/17/2011 10:52 AM CDT H&P - External, Provider - 03/17/2011 10:51 AM CDT documented in this encounter Miscellaneous Notes Media - [facility], PROVIDER - 03/21/2011 3:50 AM CDT Media - [facility], PROVIDER - 03/17/2011 10:53 AM CDT Media - [facility], PROVIDER - 03/17/2011 7:17 AM CDT Media - [facility], PROVIDER - 03/17/2011 3:44 AM CDT Media - [facility], PROVIDER - 03/13/2011 11:30 AM CDT Media - [facility], PROVIDER - 03/13/2011 11:30 AM CDT documented in this encounter Plan of Treatment Scheduled Referrals Name Type Priority Associated Diagnoses Order S chedule Orthopaedic/Sports Referral Routine Ordered: 03/15/2011 Medicine Referral - Adult/Peds documented as of this encounter Procedures Procedure Name Priority Date/Time Associated Diagnosis Comme nts POTASSIUM Routine 03/16/2011 6:56 AM Results f or this CDT procedure are i n the results section. INR/PROTIME Routine 03/16/2011 6:56 AM Results f or this CDT procedure are i n the results section. COMPLETE BLOOD Routine 03/15/2011 6:43 AM Results for this COUNT-NO DIFF CDT procedure are in the results section. INR/PROTIME Routine 03/15/2011 6:43 AM Results f or this CDT procedure are i n the results section. XR KNEE LT 2 VIEWS Routine 03/14/2011 10:11 AM Re sults for this CDT procedure are i n the results section. XR KNEE RT 2 VIEWS Routine 03/14/2011 10:11 AM Re sults for this CDT procedure are i n the results section. BASIC METABOLIC Routine 03/14/2011 7:07 AM Result s for this PANEL CDT procedure are i n the results section. COMPLETE BLOOD Routine 03/14/2011 7:07 AM Results for this COUNT-NO DIFF CDT procedure are in the results section. INR/PROTIME Routine 03/14/2011 7:07 AM Results f or this CDT procedure are i n the results section. GLUCOSE, WHOLE Routine 03/13/2011 9:48 PM Results for this BLOOD POCT CDT procedure are i n the results section. XR C-ARM 30-59 Routine 03/13/2011 5:00 PM Results for this MINUTES CDT procedure are i n the results section. XR C-ARM 1-1.5 Routine 03/13/2011 4:15 PM Results for this HOURS CDT procedure are i n the results section. XR C-ARM 1-1.5 Routine 03/13/2011 3:15 PM Results for this HOURS CDT procedure are i n the results section. OPEN REDUCTION AM Admit 03/13/2011 1:27 PM BILATERAL LATERAL INTERNAL FIXATION CDT FEMORAL CONDYLE DISTAL FEMUR FRACTURES FRACTURE Case Notes ORIF LEFT TIBIAL PLATEAU; LE FT FEMUR CONDYLE ORIF RIGHT FEMUR CONDYLE OPEN REDUCTION INTERNAL AM Admit 03/13/2011 1:27 PM CDT B ILATERAL LATERAL FEMORAL FIXATION TIBIAL PLATEAU CONDYLE FRACTURES FRACTURE Case Notes ORIF LEFT TIBIAL PLATEAU; LE FT FEMUR CONDYLE ORIF RIGHT FEMUR CONDYLE BB HOLD TUBE ([facility] Routine 03/13/2011 12:51 PM CDT Results for this procedure ONLY) are in the resu lts section. TYPE & CROSSMATCH-UNITS Routine 03/13/2011 12:40 PM CDT Results for this procedure AVAIL FOR 3 DAYS are in the results section. COMPLETE BLOOD COUNT-NO Routine 03/13/2011 12:40 PM CDT Results for this procedure DIFF are in the resu lts section. INR/PROTIME Routine 03/13/2011 12:40 PM CDT Resu lts for this procedure are in the resu lts section. EKG IP 03/13/2011 12:00 AM CDT Resu lts for this procedure are in the resu lts section. documented in this encounter Results (ABNORMAL) INR/Protime (daily while on warfarin) (03/16/2011 6:56 AM CDT) athologist Signature Protime 17.7 (H) 12.0 - 14.5 [facility] sec INR 1.5 [facility] Specimen Anatomical Collection Method Collection Time Receive d Time (Source) Location / / Volume Laterality 03/16/2011 6:56 AM 1 7:00 CDT AM CDT Karl Mcclain MD LAB_1 Performing Organization Address [facility] Phon e Number [address] [address] [place], [place] [phone] POTASSIUM (03/16/2011 6:56 AM CDT) P athologist Signature Potassium 4.1 3.5 - 5.3 [facility] mmol/L Specimen Anatomical Collection Method Collection Time Receive d Time (Source) Location / / Volume Laterality 03/16/2011 6:56 AM 1 7:00 CDT AM CDT Karl Mcclain MD LAB_1 Performing Organization Address [facility] Phon e Number [address] [address] [place], [place] [phone] (ABNORMAL) INR/Protime (daily while on warfarin) (03/15/2011 6:43 AM CDT) athologist Signature Protime 16.1 (H) 12.0 - 14.5 [facility] sec INR 1.3 [facility] Specimen Anatomical Collection Method Collection Time Receive d Time (Source) Location / / Volume Laterality 03/15/2011 6:43 AM 1 7:07 CDT AM CDT Karl Mcclain MD LAB_1 Performing Organization Address [facility] Phon e Number [address] [address] [place], [place] [phone] (ABNORMAL) Hemogram with Platelets (POD #1, 2, 3) (03/15/2011 6:43 AM CDT) athologist Signature WBC 8.2 4.0 - 11.0 [facility] k/ul RBC 3.04 (L) 4.5 - 5.9 [facility] M/ul Hemoglobin 9.3 (L) 13.5 - 17.5 [facility] g/dl HCT 27.4 (L) 41.0 - 53.0 [facility] % MCV 90.3 80 - 100 fl [facility] MCH 30.6 26 - 34 pg [facility] MCHC 33.9 32 - 36 [facility] g/dl RDW 16.3 (H) 11.5 - 14.5 [facility] % Platelets 124 (L) 150 - 450 [facility] k/ul MPV 9.4 6.5 - 10.0 [facility] fl Specimen Anatomical Collection Method Collection Time Receive d Time (Source) Location / / Volume Laterality 03/15/2011 6:43 AM 1 7:07 CDT AM CDT Karl Mcclain MD LAB_1 Performing Organization Address [facility] Phon e Number [address] [address] [place], [place] [phone] XR KNEE AP/LAT 2 VIEWS RIGHT (03/14/2011 10:11 AM CDT) Anatomical Region Laterality Modality Lower Extremity, Knee Computed Radiograp hy Specimen (Source) Anatomical Collection Method Collection Time Re ceived Time Location / / Volume Laterality 03/14/2011 10:11 AM CDT Narrative 03/14/2011 1:55 PM CDT RIGHT KNEE 2 VIEWS 03/14/2011 AT 1009 HOURS: INDICATION: Pain. Trauma. FINDINGS: Interval plate and screw fixat ion has been performed for comminuted distal right femoral fracture . Hardware is well seated with good alignment. Soft tissue gas and swelling is on a postoperative basis. Suprapatellar effusion. Degenerative art hritis right knee. Demineralization of the visualized bones. Procedure Note GeronimoBirgit T - 03/14/2011Formatting of t his note might be different from the original. RIGHT KNEE 2 VIEWS 03/14/2011 AT 1009 HOUR S: INDICATION: Pain. Trauma. FINDINGS: Interval plate and screw fixat ion has been performed for comminuted distal right femoral fracture . Hardware is well seated with good alignment. Soft tissue gas and swelling is on a postoperative basis. Suprapatellar effusion. Degenerative art hritis right knee. Demineralization of the visualized bones. Karl Mcclain MD RAD GD XR KNEE AP/LAT 2 VIEWS LEFT (03/14/2011 10:11 AM CDT) Anatomical Region Laterality Modality Lower Extremity, Knee Computed Radiograp hy Specimen (Source) Anatomical Collection Method Collection Time Re ceived Time Location / / Volume Laterality 03/14/2011 10:11 AM CDT Narrative 03/14/2011 1:55 PM CDT LEFT KNEE 2 VIEWS 03/14/2011 AT 1006 HOURS: INDICATION: Fracture repair. Pain. COMPARISON: 02/27/2011. FINDINGS: Interval plate and screw fixat ion for distal left femoral and proximal left tibial fractures. Hardware is well seated with good alignment. Soft tissue swelling is on a postoperative basis. Minor postoperative soft tissue gas. Demineral ization of the visualized bones. Degenerative arthritis left knee joint. Procedure Note GeronimoRoelBirgit T - 03/14/2011Formatting of t his note might be different from the original. LEFT KNEE 2 VIEWS 03/14/2011 AT 1006 HOURS : INDICATION: Fracture repair. Pain. COMPARISON: 02/27/2011. FINDINGS: Interval plate and screw fixat ion for distal left femoral and proximal left tibial fractures. Hardware is well seated with good alignment. Soft tissue swelling is on a postoperative basis. Minor postoperative soft tissue gas. Demineral ization of the visualized bones. Degenerative arthritis left knee joint. Karl Mcclain MD RAD GD INR/Protime (daily while on warfarin) (03/14/2011 7:07 AM CDT) athologist Signature Protime 14.2 12.0 - 14.5 [facility] sec INR 1.1 [facility] Specimen Anatomical Collection Method Collection Time Receive d Time (Source) Location / / Volume Laterality 03/14/2011 7:07 AM 1 7:24 CDT AM CDT Karl Mcclain MD LAB_1 Performing Organization Address [facility] Phon e Number [address] [address] [place], [place] [phone] BASIC METABOLIC PANEL (03/14/2011 7:07 AM CDT) athologist [facility] BUN 16 7 - 20 [facility] mg/dl Sodium 141 135 - 145 [facility] mmol/L Potassium 3.9 3.5 - 5.3 [facility] mmol/L Chloride 104 95 - 106 [facility] mmol/L CO2 29 22 - 30 [facility] mmol/L Glucose 86 70 - 180 [facility] mg/dl Creatinine 1.05 0.66 - [facility] 1.25 mg/dl GFR, Estimated >60.0 >60 [facility] ml/min/1.7 3m2 GFR, Est., If >60.0 >60 [facility] Black ml/min/1.7 3m2 Calcium 8.4 8.4 - 10.2 [facility] mg/dl Anion Gap 7 7 - 16 [facility] (calc.) mmol/L Specimen Anatomical Collection Method Collection Time Receive d Time (Source) Location / / Volume Laterality 03/14/2011 7:07 AM 1 7:24 CDT AM CDT Karl Mcclain MD LAB_1 Performing Organization Address City/[facility] Phon e Number [address] [address] [place], [place] [phone] (ABNORMAL) Hemogram with Platelets (POD #1, 2, 3) (03/14/2011 7:07 AM CDT) athologist Signature WBC 6.1 4.0 - 11.0 [facility] k/ul RBC 3.04 (L) 4.5 - 5.9 [facility] M/ul Hemoglobin 9.3 (L) 13.5 - 17.5 [facility] g/dl Comment: Result Checked HCT 27.6 (L) 41.0 - 53.0 % [facility] MCV 90.9 80 - 100 fl [facility] MCH 30.7 26 - 34 pg [facility] MCHC 33.7 32 - 36 g/dl [facility] RDW 16.1 (H) 11.5 - 14.5 % [facility] Platelets 117 (L) 150 - 450 k/ul [facility] MPV 9.7 6.5 - 10.0 fl [facility] Specimen Anatomical Collection Method Collection Time Receive d Time (Source) Location / / Volume Laterality 03/14/2011 7:07 AM 1 7:24 CDT AM CDT Karl Mcclain MD LAB_1 Performing Organization Address [facility]/ZIP [facility] Phon e Number [address] [address] [place], [place] [phone] GLUCOSE, WHOLE BLOOD POC (03/13/2011 9:48 PM CDT) athologist Signature Glucose, Whole 114 70 - 180 [facility] Blood mg/dl Comment: Point of Care Testing RN Notified Specimen Anatomical Collection Method Collection Time Receive d Time (Source) Location / / Volume Laterality 03/13/2011 9:48 PM 1 1:26 CDT AM CDT Karl Mcclain MD LAB_1 Performing Organization Address [facility] Phon e Number [address] [address] [place], [place] [phone] XR C-ARM 30-59 MIN (03/13/2011 5:00 PM CDT) Anatomical Region Laterality Modality X-Ray Angiography Specimen (Source) Anatomical Location Collection Method / Collectio n Time Received Time / Laterality Volume Narrative 03/13/2011 5:18 PM CDT This is an imaging order which does not require reading by a radiologist. The order is completed and status is fin al. Procedure Note Julien Martinez - 03/13/2011 This is an imaging order which does not require reading by a radiologist. The order is completed and status is final. Karl Mcclain MD RAD GD XR C-ARM 1-1.5 HOURS (03/13/2011 4:15 PM CDT) Anatomical Region Laterality Modality X-Ray Angiography Specimen (Source) Anatomical Location Collection Method / Collectio n Time Received Time / Laterality Volume Narrative 03/13/2011 5:17 PM CDT This is an imaging order which does not require reading by a radiologist. The order is completed and status is fin al. Procedure Note Julien Martinez W - 03/13/2011 This is an imaging order which does not require reading by a radiologist. The order is completed and status is final. Karl Mcclain MD RAD GD XR C-ARM 1-1.5 HOURS (03/13/2011 3:15 PM CDT) Anatomical Region Laterality Modality X-Ray Angiography Specimen (Source) Anatomical Location Collection Method / Collectio n Time Received Time / Laterality Volume Narrative 03/13/2011 5:16 PM CDT This is an imaging order which does not require reading by a radiologist. The order is completed and status is fin al. Procedure Note Julien Martinez W - 03/13/2011 This is an imaging order which does not require reading by a radiologist. The order is completed and status is final. Karl Mcclain MD RAD GD BB HOLD TUBE ([facility] ONLY) (03/13/2011 12:51 PM CDT) Patholo gist Method Time Signature BB Hold Tube Blood Bank [facility] save tube expires in 3 days Specimen Anatomical Collection Method Collection Time Receive d Time (Source) Location / / Volume Laterality 03/13/2011 12:51 03/13/2011 PM CDT 12:58 PM CDT Karl Mcclain MD LAB_1 Performing Organization Address City/State/ZIP Code Phon e Number [address] [address] [place], [place] [phone] INR/PROTIME (03/13/2011 12:40 PM CDT) P athologist Signature Protime 13.2 12.0 - 14.5 [facility] sec INR 1.0 [facility] Specimen Anatomical Collection Method Collection Time Receive d Time (Source) Location / / Volume Laterality 03/13/2011 12:40 03/13/2011 PM CDT 12:55 PM CDT Raquel Cook PA-C LAB_1 Performing Organization Address [facility] Code Phon e Number [address] [address] [place], [place] [phone] TYPE & Crossmatch (units available for 3 days) (03/13/2011 12:40 PM CDT) Patholo gist Method Time Signature ABO/RH(D) A NEGATIVE [facility] Antibody NEGATIVE [facility] Screen Crossmatch 03/16/2011 [facility] Expires Specimen Anatomical Collection Method Collection Time Receive d Time (Source) Location / / Volume Laterality 03/13/2011 12:40 03/13/2011 PM CDT 12:56 PM CDT Latrice Triana MD LAB_1 Performing Organization Address [facility] Code Phon e Number [address] [address] [place], [place] [phone] (ABNORMAL) HEMOGRAM/PLTS (03/13/2011 12:40 PM CDT) P athologist Signature WBC 6.3 4.0 - 11.0 [facility] k/ul RBC 4.14 (L) 4.5 - 5.9 [facility] M/ul Hemoglobin 12.7 (L) 13.5 - 17.5 [facility] g/dl HCT 37.7 (L) 41.0 - 53.0 [facility] % MCV 91.0 80 - 100 fl [facility] MCH 30.7 26 - 34 pg [facility] MCHC 33.8 32 - 36 [facility] g/dl RDW 16.0 (H) 11.5 - 14.5 [facility] % Platelets 162 150 - 450 [facility] k/ul MPV 11.4 (H) 6.5 - 10.0 [facility] fl Specimen Anatomical Collection Method Collection Time Receive d Time (Source) Location / / Volume Laterality 03/13/2011 12:40 03/13/2011 PM CDT 12:55 PM CDT Raquel Cook PA-C LAB_1 Performing Organization Address [facility]/ZIP Code Phon e Number [address] [address] [place], [place] [phone] EKG IP (03/13/2011 12:00 AM CDT) Specimen (Source) Anatomical Location Collection Method / Collectio n Time Received Time / Laterality Volume 03/13/2011 Narrative This result has an attachment that is no t available. Transcriptions [facility], PROVIDER - 03/17/2011 3:44 AM C DT Provider [facility] EKG documented in this encounter Visit Diagnoses Diagnosis Osteoporosis, unspecified (HRC) Osteoporosis, unspecified DVT (deep venous thrombosis) (HRC) Acute venous embolism and thrombosis of unspecified deep vessels of lower extremity Neurogenic bladder Neurogenic bladder, NOS HTN (hypertension) (HRC) Unspecified essential hypertension Spasm Abnormal involuntary movements Constipation Unspecified constipation Hyperlipidemia (HRC) Other and unspecified hyperlipidemia Acute venous embolism and thrombosis of unspecified deep vessels of lower extremity Neurogenic bladder, NOS Unspecified essential hypertension (HRC) Unspecified essential hypertension Abnormal involuntary movements(781.0) Abnormal involuntary movements Unspecified constipation Other and unspecified hyperlipidemia (HR C) Other and unspecified hyperlipidemia Initial Assessments - Trudi Raymundo, PT - 03/15/2011 5:03 PM CDT PHYSICAL THERAPY SEATING/MOBILITY EVALUATION Carl Cullen [address] [facility] [id number] 1945 Estimated Body mass index is 33.43 kg/(m^2) as calculated from the following: Height as of this encounter: 5' 10(1.778 m). Weight as of this encounter: 233 lb(105.688 kg). 03/15/2011 Karl Mcclain MD [address] [place] [id number] Diagnosis: Paraplegia Payor: MEDICARE PART B ONLY [id number] Plan: MEDICARE PART B ONLY Product Type: Medicare Physician: referring physician Karl Mcclain MD (orthopedics) Funding: Medicare / [employer] Vendor: [employer] Seating and Mobility Onset Date: 03/13/11 MEDICAL HISTORY: History/Progression: He has a history of thoracic ependymoma for a number of years, [facility] No customized seating at any point and [...] ??? HTN (Hypertension) 401.9AE ??? CAREPLAN: BACLOFEN [id number] ??? Osteoporosis 733.00C Past Medical History Diagnosis Date ??? 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 However resection was incomplete due [...] postop bleed cmpl ??? 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 Ivc filter placement 1999 Recent/Planned Surgeries: 03/13/11 PROCEDURE: 1. Plating of right lateral femoral condyle. 2. Plating of left lateral femoral condyle. 3. Plating of left medial tibial plateau fracture. Cardio-Respiratory Status: intact CURRENT SEATING/MOBILITY: (Type - Clinical Audiologist-Model) Chair: [employer] W/C, age: 3 1/2 years w/c Cushion: Van seat, age: same as chair w/c Back: Van back, age: same as chair Also has a Breezy 600, age unknown with sling back and Basic Angus Combi cushion (no pressure relieving features). This was purchased privately. Is 18 inches wide. Patient's lateral thighs press against sides of arm rests. Patient is noted to have area of pressure along lateral thighs when being transferred back to bed. Reason for replacement: needs better positioning. Funding source: Medicare HOME ENVIRONMENT: Patient lives with spouse/significant other in a house. Entrance: ramp. W/C Accessible Rooms: Yes Uses manual chair for the most part in the home as it is easier to negotiate to the bathroom, etc...Uses power chair for going out and about in community, for driving and for being in the yard. COMMUNITY ADL: Transportation: vehicle adapted for wheelchair to lock in for driving. 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 OBJECTIVE: ROM: not assessed today. He does report some shoulder pain. STRENGTH: Not tested specifically today. Patient is very tired from being up in his chair. Has no LEmotor function remaining and lacks trunk control consistent with paraplegia affecting T3 and lower. Lacks trunk and LE sensation. ALIGNMENT: Pelvic: Iliac crests height : Level Pelvic Obliquity: none noted in his current manual chair Scoliosis: none Kyphosis: no Skin integrity: He has had no recent areas of skin pressure. Following hospitalization last year he did have the beginning of a pressure area that never opened and healed. COGNITIVE / VISUAL STATUS: Memory Skills: intact Problem Solving: intact Judgment: intact Attn/Concentration: intact Vision: intact Hearing: intact Other: intact ADL STATUS: Dressing: currently requiring assistance while in hospital, working with OT, refer to notes. Bathing: assist Bowel management: is on a bowel program Bladder management: indwelling catheter MOBILITY SKILLS: Bed to w/c transfer: assist, sliding board, maximal assist of 2. Had been up in his chair for over 2hours and was very tired. w/c to commode transfer: not assessed Ambulation: unable Manual w/c propulsion: slow propulsion, right shoulder pain. Only propelled to maneuver to the side of the bed in preparation for the transfer. Able to perform weight shifts: unable to perform adequately for sufficient time for pressure relief. Hours spent sitting in w/c each day: [...] to self propel in his current wheelchair. 7. If a POV is recommended, does the user have sufficient stability and upper extremity function to operate it? no. 8. If a power wheelchair is recommended, does the user have sufficient function/abilities to use therecommended equipment? Yes. Currently has a power wheelchair TODAY'S TREATMENT: Evaluation. It was arranged for a vendor to bring in a wider lightweight manual wheelchair with a pressure relieving cushion to go home with. This will be delivered on 03/16/11. OT will be present to assist with the transfer to ensure patient is able to transfer to the wheelchair. RECOMMENDATION / GOALS: Patient was seen as a consult as an inpatient for a new manual wheelchair. At this point, it may be more appropriate to pursue a different power wheelchair with rehab seating. He is scheduled to returnto PT as an outpatient on 04/04/11 to discuss power mobility versus manual wheelchair. He will have an opportunity to maneuver in a manual wheelchair that is wider and will have a loaner wider wheelchair until another wheelchair can be arranged for him. On 04/04/11, further evaluation will be completed to determine if power mobility is indeed a more appropriate device. It is this therapist's opinion that power mobility with rehab seating and tilt in space would be more appropriate for him. His home is set up for this type of equipment as is his vehicle. He would still have a manual wheelchair to fallback on but should be cautious to avoid remaining in the chair for long periods of time due to the tight fit. Nonetheless, he would have an opportunity to demo a power wheelchair with til to see if this would alleviate some of his pressure issues and potentially some of his back pain. A manual wheelchair (shaper set up operator weight than is Breezy) could potentially be appropriate. Regardless, he should have an opportunity to try some various rehab seating options before a final decision is made and thus a follow up outpatient PT evaluation for seating is necessary. Goal: 1. Patient to have a wider manual wheelchair with pressure relieving cushion that is shaper set up operator weight to allow for better positioning and better mobility potential within his home. 2. Patient to follow up for outpatient PT eval on 04/04/11 for mobility / seating assessment. Plan: Vendor to deliver manual wheelchair (20 inches wide) on 03/16/11. OT to be present to assist with transfers. This therapist is not available to assist on 03/16/11 but will be available via telephone. Trudi Raymundo PT 03/15/11 Initial Assessments - Kehinde De La Cruz, OTR/L - 03/14/2011 3:29 PM CDT [facility] Occupational Therapy ADL Evaluation Diagnosis: Encounter Diagnoses Code Name Primary? 733.00C Osteoporosis ??? 453.40U DVT (deep venous thrombosis) ??? 596.54AL Neurogenic bladder ??? 401.9AE HTN (hypertension) ??? 781.0U Spasm ??? 564.00A Constipation ??? 272.4R Hyperlipidemia ??? 733.00 Unspecified osteoporosis ??? 453.40 Ac DVT/embl low ext NOS ??? 596.54 Neurogenic bladder, NOS ??? 401.9 Unspecified essential hypertension ??? 781.0 Abnormal involuntary movements ??? 564.00 Unspecified constipation ??? 272.4 Other and unspecified hyperlipidemia Past Medical History Diagnosis Date ??? 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 However resection was incomplete due [...] ??? Hypercholesteremia ??? Chronic constipation ??? Depression Subjective: Prior ADL Status Residence: Lives with spouse, in a single-level, house Self Care: Assist needed with ADL's, SBA-min A from Meal Prep: shared responsibility Laundry/Cleaning: shared responsibility Finances: shared responsibility Shopping: shared responsibility Transportation: relies on family/friends Bathroom Location and Set-up: main level, roll-in shower Equipment Available: raised toilet seat, grab rails, roll-in shower chair Support Available: pt's Objective: Current Level of Function Upper Extremity Function: UE AROM: WFL UE Strength: WFL UE Endurance: WFL Pain: no c/o pain during therapy activities, pt reports he does not have sensation in legs Action Taken: patient agreed to continue therapy Self Cares: FIM: 7=independent/complete; 6=independent/modified; 5=supervision/set up; 4=minimal assist ; 3=moderate assist ; 2=maximal assist ; 1=dependent; N/A=not applicable; NT=not tested Feedin = independent Groomin = assist for s/u Upper Body Dressing: TBA Lower Body Dressin = for socks and pants, supine in bed, rolling using rails to pull up pants Toileting: TBA Bathing: NT Comments: Pt presents with paraplegia since 2006 from spinal tumor Transfers Bed Mobility: mod assist, max assist Sit to Stand: NT secondary to paraplegia Toilet: TBA Tub/Shower: TBA Cognition: General Comments: Per interview and observation of functional performance, cognition appears grosslyintact. Patient does not report any changes in cognition. Will further assess if indicated. Orientation: A&O to person, place, time, event Safety/Judgement: appears intact per interview/observation Problem Solving: appears intact per interview/observation Education: Provided patient, family education, training, and/or instruction in the following areas as relevant to meaningful participation in daily occupations: role of occupational therapy, provided support and encouragement and answered questions related to rehab course, ADLs, wheelchair positioning, home modif ications/environmental access and post-op precautions (per pt's chart, NWB BLE due to bilat fractures. However, pt cleared to get up and use slideboard to transfer into chair and for ADL's. Patient and/or caregiver response to teaching: verbalized understanding, demonstrated understanding,requires additional training Adaptive Equipment Recommendations: Need more time to determine extent of adaptive equipment needs Please refer to physical therapy notes for equipment needs related to mobility. Comments: Pt transferred from EOB to personal w/c with min A x 2 using slideboard. Discussed pt's size of pt'sw/c with pt and family due to their concerns re: size. W/c is 18 inches, pt may be more appropriate in a 20 in chair. Will follow up with family, case picker and therapy dept re: w/c. Assessment/Recommendations: The patient would benefit from ongoing Occupational Therapy for 30 and 60 minutes daily for 3-4 moredays to meet therapy goals. Pt will benefit from follow up OT, HH or outpt following d/c from acute care. Plan of Care ADL/IADL training, adaptive equipment training as needed, functional mobility, patient/family education and functional transfer training, w/c positioning. Goals Functional goals to be met prior to discharge from acute service: Patient will complete upper extremity dressing with stand by assist. Patient will complete lower extremity dressing with contact guard assist. Patient will complete grooming/hygiene tasks independently. Patient will complete toilet/commode transfers with stand by assist. Patient will complete tub/shower transfers with stand by assist. Patient will demonstrate safety while retrieving ADL supplies from high/low surfaces. Progress towards initial goals will be documented in future notes. Patient's Goals: To go home Amount of time spent in patient contact: 45 minutes [facility]/Kateryna (pager) OT Dept #: [phone] - OT Weekend Pager #: [phone] - [facility] Main #: [phone] --- End of Report --- Initial Assessments - Lisette Espinal RN - 03/13/2011 8:40 PM CDT [facility] Med-Surg / ICU / Rehab / Burn Nursing Initial Assessment Note GENERAL INFORMATION/PATIENT IDENTIFICATION/HISTORY Actual Arrival Date on Unit: 03/13/11 Actual Arrival Time on Unit: 1944 Patient a transfer from another hospital for trauma?: No Patient Identity Confirmed By: Full name including last, first, and middle;Birthdate Source of Identifying Information: Patient;Family Person (first/last name/phone number) who can help make medical decisions or help in care after hospitalization?: self and () Heather Cullen basil phone-[phone] Recent Exposure to Communicable Diseases Within the Past Month?: No History for Resistant Organism Within the Past Month?: None Allergies: Zaroxolyn and Oxycodone Prescriptions prior to admission Medication Sig ??? atorvastatin (LIPITOR) 40 MG tablet Take 1 Tab by mouth daily. ??? baclofen (AKA LIORESAL) 20 MG tablet Take 40 mg by mouth three times a day. ??? cholecalciferol (AKA VITAMIN D3) 1000 UNIT tablet Take 1,000 Units by mouth daily. ??? citalopram (AKA CELEXA) 40 MG tablet Take 40 mg by mouth daily. ??? cyclobenzaprine (AKA FLEXERIL) 10 MG tablet Take 1 Tab by mouth two times a day. ??? dantrolene (DANTRIUM) 25 MG capsule Take 1 Cap by mouth daily. For 1 week then 1 two times a dayfor 1 week then 1 three times a day ??? docusate sodium (AKA ENEMEEZ) 283 MG enema Insert 5 mL rectally daily as needed. PT. USES ENEMA EVERY OTHER DAY. ??? furosemide (AKA LASIX) 40 MG tablet Take 40 mg by mouth daily as needed. ??? LORazepam (AKA ATIVAN) 0.5 MG tablet Take 2 Tabs by mouth three times a day. ??? polyethylene glycol 3350 (MIRALAX) powder Take 17 g by mouth every other day. ??? potassium chloride (AKA KLOR-CON) 10 MEQ controlled release tablet Take 20 mEq by mouth. Takes 1-2 tabs daily prn. ??? senna (AKA SENOKOT) 8.6 MG tablet Take 3 Tabs by mouth every other day. ??? TRIMETHOPRIM OR Take 100 mg by mouth daily. ??? warfarin (AKA COUMADIN) 5 MG tablet Take 1 Tab by mouth daily. Adjust dose based on INR result as directed. IMMUNIZATION ASSESSMENT Influenza Assessment Current Date is Between August 11- February 08?: No (stop here) Pneumococcal Assessment Assessment of Age/Risk Factors: Cardiovascular disease Vaccine Status: Received a dose before age 65, LESS than 5 years ago (stop here) HEAD TO TOE ASSESSMENT Neurological Neuro Assessment: Sensation Sensation: Numb Sensation Location: Left leg;Right leg;Left foot;Right foot;Other (see comments) (patient is paraplegic) EENT Head/Neck Assessment: No apparent abnormalities Eye Assessment: (not recorded) Glasses/Contacts: Glasses Ear Assessment: No apparent abnormalities Nose Assessment: No apparent abnormalities Throat/Mouth Assessment: No apparent abnormalities Patient have special speech, hearing, or vision needs?: (not recorded) Respiratory Respiratory Assessment: No apparent abnormalities Cough?: No Sputum?: No History of Sleep Apnea?: No Respiratory Needs Likely at Discharge?: No Cardiovascular Cardiovascular Assessment: No apparent abnormalities Gastrointestinal/Nutrition Date of Last Bowel Movement: 03/12/11 GI/Nutritional Assessment: Other (see comments) (pt has bowel regimen,gets constipated sometimes) Diet History: Regular diet Diet History Additional Information: (not recorded) Nutrition Consult Screening: No GI/nutrition screening criteria applicable Genitourinary Assessment: Indwelling catheter Arnol Scale Sensory Perception: 2 Moisture Exposure: 3 Activity: 2 Mobility: 2 Nutrition: 3 Friction/Shear: 2 Arnol Score: (Low: greater or equal to 15) (Moderate: 13-14) (High: less than or equal to 12): 14 Integumentary Integumentary Assessment: Other (see comments) Integumentary Assessment Additional Information: surgical incission Musculoskeletal Musculoskeletal Assessment: Equipment Equipment Assessment: Wheelchair MD notified of potential rehab or PT/OT needs due to mobility?: Yes Additional Information Is there additional medical information you would like to share?: No PAIN Patient Experiencing Pain?: Yes Location of Pain: right shoulder Description: Ache Pain Level: 5 Current Treatment Methods: dilaudid Method of Expressing Pain: Verbal Desired Pain Goal: 0 Site 2?: No Site 3?: No FUNCTIONAL Recent changes in level of ADLs?: No Eating - Current Level of Assist: Independent Activity - Current Level of Assist: Assistance required Elimination - Current Level of Assist: Assistance required Hygiene - Current Level of Assist: Assistance required Functional Screening: RN to notify MD of potential rehab therapy needs due to functional changes from baseline preventing pt from returning to independent or assisted living PSYCHOSOCIAL/SPIRITUAL/RESTORATIONISM/CULTURAL/ABUSE/CHEMICAL Suicide Health Inventory Do you currently have or recently had thoughts of harming or killing yourself?: No For nursing interventions, see policy: PC:12:10 History Alcohol Use No History Drug Use No Mental Health Assessment: Depressed behavior Lives: Alone;With spouse Living Situation: Home (handicap accesible) Social Screening: No discharge planning screening criteria applicable Any agencies or community support services involved prior to admission?: No Guardianship issues affecting care planning?: No Burn Patient?: No Patient have children who will be visiting during hospitalization?: (not recorded) Is the nurse aware, at present, of any needs or issues for which support from the hospital ross furnace operator might be helpful to patient and/or family? (e.g. need or desire for spiritual support, difficulty coping, end 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, grief/loss, etc.): None identified at this time Cultural practices that affect patient care (per Best Care Questionnaire)?: No Abuse/Assault Screening: No evidence of assault or abuse Chemical Use Screening: No chemical use screening criteria applicable SAFETY Falls Risk Assessment Patient: All Other Patients (Click Here) Age: 1 History of Falls: 0 Cognition: 0 Elimination: 0 Physical Mobility: 5 Lines & Tubes: 1 Medications (CV or PHLEBOTOMY SUPPORT TECH): 2 Falls Risk Score: (0-4 Low) (5-10 Moderate) (11+ High): 8 Restraints Assessment Restraint Risks: None Patient behaviors that put them at risk for restraint use?: No I acknowledge that the above adult initial assessment is complete. Yes, the above assessment is complete. documented in this encounter Active and Recently Administered Medications Times are shown in CDT. Scheduled Medication Order 03/14/2011 03/15/2011 03/16/2011 acetaminophen (aka TYLENOL) tablet 650 mg 0200 (Given - Provider: Awilda Knox RN)0800 (Given - Provider: Bayron Bernstein RN)1400 (Given - Provider: Bayron Bernstein RN)1999 (Given - Provider: Corie Welsh, VALERIE) 0225 (Given - Provider: Awilda Knox RN)0800 (Given - Provider: Bayron Bernstein RN)1400 (Given - Provider: Bayron Bernstein RN)1999 (Given - Provider: Corie Welsh RN) 0200 (Given - Provider: Awilda Knox RN)0800 (Given - Provider: Edith Pope, VALERIE) 650 mg, Oral, Q6H, First dose on Sat03/13/11 at 2000, Until Disco ntinued atorvastatin (aka LIPITOR) tablet 40 mg (CANCELED) 080 0 (Given - Provider: Bayron Bernstein RN) 0800 (Given - Provider: Bayron Bernstein RN) 0800 (Given - Provider: Edith Pope, VALERIE) 40 mg, Oral, DAILY, First dose on Sat03/14/11 at 0800, Until Disc ontinued baclofen (aka LIORESAL) tablet 40 mg (CANCELED) 0140 ( Given - Provider: Awilda Knox RN)08 (Given - Provider: Bayron Bernstein RN)1400 (Given - Provider: Bayron Bernstein RN)1999 (Given - Provider: Corie Welsh, RN) 08 (Given - Provider: Bayron Bernstein RN)1400 (Given - Provider: Bayron Bernstein RN)1999 (Given - Provider: Corie Welsh RN) 0800 (Given - Provider: Edith Pope , VALERIE) 40 mg, Oral, TID, First dose on Sat03/13/11 at 2315, Until Discon tinued cefazolin (aka ANCEF) 2 g in NaCl 0.9 % 100 mL IV keri yback (COMPLETED) 0201 (Given - Provider: Awilda Knox RN)1600 (Given - Provider: Corie Welsh, VALERIE) 0040 (Given - Provider: Awilda Knox RN) IV, Q8H, 3 doses, First dose on Sat at 0201, Last dose on Sat03/15/11 at 0000 cholecalciferol (aka VITAMIN D3) tablet TABS 1,000 Uni ts (CANCELED) 08 (Given - Provider: Bayron Bernstein RN) 08 (Given - Provider: Bayron Bernstein RN) 08 (Given - Provider: Edith Pope, VALERIE) 1,000 Units, Oral, DAILY, First dose on Sat03/14/11 at 0800, Until Discontinued citalopram (aka ceLEXA) tablet 40 mg (CANCELED) 799 ( Given - Provider: Bayron Bernstein RN) 08 (Given - Provider: Bayron Bernstein RN) 08 (Given - Provider: Edith Pope, VALERIE) 40 mg, Oral, DAILY, First dose on Sat03/14/11 at 0800, Until Disc ontinued cyclobenzaprine (aka FLEXERIL) tablet 10 mg (CANCELED) 799 (Given - Provider: Bayron Bernstein RN)1999 (Given - Provider: Corie Welsh RN) 0800 (Given - Provider: Bayron Bernstein RN)1999 (Given - Provider: Corie Welsh, RN) 0800 (Given - Provider: Edith Pope, VALERIE) 10 mg, Oral, BID, First dose on Sat03/13/11 at 2000, Until Discon tinued dantrolene (aka DANTRIUM) capsule 25 mg (CANCELED) 014 0 (Given - Provider: Awilda Knox RN)0800 (Given - Provider: Bayron Bernstein RN)1400 (Given - Provider: Bayron Bernstein RN)1999 (Given - Provider: Corie Welsh, VALERIE) 08 (Given - Provider: Bayron Bernstein, RN)1400 (Given - Provider: Bayron Bernstein, RN)1999 (Given - Provider: Corie Welsh, VALERIE) 0800 (Given - Provider: Edith Pope , VALERIE) 25 mg, Oral, TID, First dose on Sat03/13/11 at 2315, Until Discon tinued enoxaparin injection SOLN 100 mg 0800 (Given - Provide r: Bayron Bernstein RN)1999 (Given - Provider: Corie Welsh, VALERIE) 0800 (Given - Provider: Bayron Bernstein RN)1999 (Given - Provider: Corie Welsh, VALERIE) 0800 (Given - Provider: Edith Pope, VALERIE) 100 mg, SC, Q12H, First dose on Sat03/14/11 at 0800, Until Discon tinued furosemide (aka LASIX) tablet 40 mg (COMPLETED) 0843 (Held - Provider: Edith Pope, VALERIE)0931 (Given - Provider: Edith Pope, VALERIE) 40 mg, Oral, ONCE, 1 dose, Sat03/16/11 at 0843 LORazepam (aka ATIVAN) tablet 1 mg (CANCELED) 0800 (Gi lore - Provider: Bayron Bernstein RN)1400 (Given - Provider: Bayron Bernstein RN)1999 (Given - Provider: Corie Welsh, VALERIE) 0800 (Given - Provider: Bayron Bernstein RN )1400 (Given - Provider: Bayron Bernstein RN)1999 (Given - Provider: Corie Welsh RN) 0800 (Given - Provider: Edith Pope, VALERIE) 1 mg, Oral, TID, First dose on Sat03/13/11 at 2000, Until Discont inued polyethylene glycol (aka MIRALAX) oral powder 17 g 080 0 (Given - Provider: Bayron Bernstein RN) 0800 (Given - Provider: Bayron Bernstein RN) 0800 (Given - Provider: Edith Pope, VALERIE) 17 g, Oral, DAILY, First dose on Sat03/14/11 at 0800, Until Disco ntinued sennosides-docusate sodium (aka SENNA-S,SENNA PLUS) 8. 6-50 MG tablet 2 Tab 0800 (Given - Provider: Bayron Bernstein RN) 0800 (Given - Provider: Bayron Bernstein RN) 0800 (Given - Provider: Edith Pope RN) 2 Tab, Oral, DAILY, First dose on Sat03/14/11 at 0800, Until Disc ontinued sennosides-docusate sodium (aka SENNA-S,SENNA PLUS) 8. 6-50 MG tablet 3 Tab 0140 (Given - Provider: Awilda Knox RN)2100 (Given - Provider: Corie Welsh, VALERIE) 2100 (Given - Provider: Corie Welsh RN) 3 Tab, Oral, HS, First dose on Sat03/13/11 at 2316, Until Discont inued trimethoprim (aka TRIMPEX) tablet 100 mg (CANCELED) 01 40 (Given - Provider: Awilda Knox RN)08 (Given - Provider: Bayron Bernstein RN)1999 (Given - Provider: Corie Welsh, VALERIE) 08 (Given - Provider: Bayron Bernstein, VALERIE )1999 (Given - Provider: Corie Welsh, VALERIE) 08 (Given - Provider: Edith Pope, VALERIE) 100 mg, Oral, BID, First dose on Sat03/13/11 at 2315, Until Disco ntinued warfarin (aka COUMADIN) tablet 10 mg (CANCELED) 1600 (Given - Provider: Corie Welsh, VALERIE) 10 mg, Oral, WARFARIN - 1600, First dose on Sat03/15/11 at 1600, Until Discontinued warfarin (aka COUMADIN) tablet 7.5 mg (CANCELED) 0140 (Given - Provider: Awilda Knox, RN)1600 (Given - Provider: Corie Welsh RN) 7.5 mg, Oral, WARFARIN - 1600, First dos e on Sat03/13/11 at 2315, Until Discontinued Continuous Medication Order 03/14/2011 03/15/2011 03/16/2011 lactated ringers infusion 1,000 mL (CANCELED) 0555 (St arted - Provider: Awilda Knox RN)1059 (Infused - Provider: Bayron Bernstein, RN) 1,000 mL, at 100 mL/hr, IV, CONTINUOUS, Starting Sat03/13/11 at 1933, Until Discontinued PRN Medication Order 03/14/2011 03/15/2011 03/16/2011 HYDROcodone-acetaminophen (aka VICODIN,L ORTAB) 5-500 MG tablet 1-2 Tab (CANCELED) 2225 (Given - Provider: Corie Welsh RN) 1010 (G iven - Provider: Bayron Bernstein RN)1645 (Given - Provider: Corie Welsh RN)1755 (Given - Provider: Cristine Workman RN) 1-2 Tab, Oral, Q4H PRN, Starting Sat03/14/11 at 1712, Until Disco ntinued, Pain HYDROmorphone injectable 0.2-0.6 mg (CANCELED) 0320 (G iven - Provider: Awilda Knox RN)1245 (Given - Provider: Danay Garrido RN) 0.2-0.6 mg, IV, Q2H PRN, Starting Sat03/13/11 at 1932, Until Discontinued, Pain magnesium hydroxide (aka MILK OF MAGNESIA) oral liquid 30 mL 1020 (Given - Provider: Bayron Bernstein RN) 30 mL, Oral, DAILY PRN, Starting 03/13 at 1932, Until Discontinued, Constipation sodium phosphate (aka FLEET) enema 1 Enema (COMPLETED) 1030 (Given - Provider: Bayron Bernstein, RN) 1 Enema, Rectal, ONCE PRN, 1 dose, Start ing Sat03/13/11 at 1932, Until Discontinued, Constipation documented in this encounter
--- OUTSIDE RECORDS SUMMARY | 2022-06-20 02:31 | XMS_ITS | Encounter Summary ---
:1945 Author Organization [facility] Address [address], [place] [address] Care Team Providers Name Role Phone Unavailable Primary Care Provider Unavailable Encounter Details Date Type Department Care Team Description 02/27/2011 Imaging [facility] Canceled (Canc/Jess [address]) [place] [address] Social History Tobacco Use Types Packs/Day Years [...]
--- OUTSIDE RECORDS SUMMARY | 2022-06-20 02:31 | XMS_ITS | Encounter Summary ---
:1945 Author Organization [facility] Address [address] [address] Care Team Providers Name Role Phone Unavailable Primary Care Provider Unavailable Encounter Details Date Type Department Care Team Description 11/06/2010 Correspondence [facility] Radiology, MRI SAFETY SHEET [address] [facility] Provider [place] [address] Social History Tobacco Use Types Packs/Day Years Used Date Smoking Tobacco: Never Alcohol Use Standard Drinks/Week Comments No 0 (1 standard drink = 0.6 oz pure alcoho l) Sex Assigned at Date Recorded Male 08/06/2021 5:59 PM CDT documented as of this encounter Progress Notes [facility], PROVIDER - 11/14/2010 8:09 AM GLOBAL POSITION SYSTEM TECHNICIAN AL POSITION SYSTEM TECHNICIAN documented in this encounter Plan of Treatment Not on filedocumented as of this encounter Visit Diagnoses Not on filedocumented in this encounter
--- OUTSIDE RECORDS SUMMARY | 2022-06-20 02:31 | XMS_ITS | Encounter Summary ---
:1945 Author Organization [facility] Address [address] [place] [address] Care Team Providers Name Role Phone Unavailable Primary Care Provider Unavailable Encounter Details Date Type Department Care Team Description 11/06/2010 [facility] Special[facility]; Center MRI Screening for nephropathy [address] [facility] [place] [address] Social History Tobacco Use Types Packs/Day Years [...] Associated Diagnosis Comme nts CREATININE/GFR, WB Routine 11/07/2010 12:01 PM Screening for R esults for this POC BILLBOARD INSTALLER nephropathy procedure are i n the results section. 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 documented in this encounter Results CREATININE/GFR, WB POC (11/07/2010 12:01 PM BILLBOARD INSTALLER) P athologist Signature Creat Whole 1.1 0.66 - [facility] Blood 1.25 mg/dl GFR, Estimated >60.0 >60 [facility] ml/min/1.7 3m2 GFR, Est., If >60.0 >60 [facility] Black ml/min/1.7 3m2 Specimen Anatomical Collection Method Collection Time Receive d Time (Source) Location / / Volume Laterality 11/07/2010 12:01 11/07/2010 PM BILLBOARD INSTALLER 12:35 PM BILLBOARD INSTALLER Cooper Chávez MD LAB_1 Performing Organization Address City/State/ZIP Code Phon e Number [facility] [phone] [address] MR THORACIC SPINE WITH/WITHOUT CONTRAST (11/06/2010 12:05 PM BILLBOARD INSTALLER) Anatomical Region Laterality Modality Spine, T-Spine, L-Spine, C-Spine, Skeletal Magnetic Resonance Specimen (Source) Anatomical Collection Method Collection Time Re ceived Time Location / / Volume Laterality 11/06/2010 12:05 PM BILLBOARD INSTALLER Narrative 11/06/2010 2:45 PM BILLBOARD INSTALLER [facility] MRI THORACIC SPINE WITHOUT AND WITH IV C ONTRAST 11/06/2010 INDICATION: Followup thoracic tumor rese ction. TECHNIQUE: Thoracic spine MRI without an d with intravenous contrast. CONTRAST: 20 mL IV Magnevist. Estimated GFR 67. COMPARISON: 07/27/2010 and 05/26/2010 thor [facility] spine MRIs. FINDINGS: Again demonstrated are postope rative changes of T2-T3 through T5-T6 laminectomies.The previously demon strated multiseptated peripherally enhancing fluid collection in the hospice executive director ior paraspinal soft tissues overlying the surgical bed containing mu ltiple fluid fluid levels has further decreased in size from 07/27/2010 , today measuring approximately 3.0 x 1.5 x 8.5 cm (AP x TR x CC) previousl y measuring 4.4 x 2.2 x 10.0 cm. As noted previously there has been resecti on of a portion of the upper thoracic cord from approximately T2-T3 d own to T5. Atrophic changes in the mid and lower thoracic cord. Expansile T 2 hyperintense area of signal abnormality in the lower thoracic cord c entered at the T11 vertebral body level with no associated enhancement. Th is region is not definitely change from last exam on the sagittal sequences . Axial sequences not obtained through this area. This area of signal a bnormality is new from 05/26/2010. Postradiation changes involving the henrry ow in the lower cervical and upper thoracic spine again noted extending rakesh n to approximately T7. Mild scattered degenerative changes. CONCLUSION: 1. Expansile nonenhancing T2 hyperintens e lesion or process in the lower thoracic cord centered at T11 is not sig nificantly changed compared to 07/27/2010 and new from 05/26/2010. This r emains indeterminate for edema or expansile nonenhancing tumor. 2. Previously demonstrated multiseptated fluid collection in the posterior paraspinal soft tissues in the upper tho racic region related to the previous laminectomy bed has further dec reased in size. Again noted are fluid fluid levels within this fluid col lection. 3. Previous resection of a portion of th e spinal cord from T2-T3 through T5 with atrophy of the mid and distal spin al cord again noted. 4. Postradiation changes in the marrow o f the cervical and mid-upper thoracic spine again noted. Procedure Note Jeffrey Monterrosojanice Miranda - 11/06/2010 [facility] MRI THORACIC SPINE WITHOUT AND WITH IV C ONTRAST 11/06/2010 INDICATION: Followup thoracic tumor rese ction. TECHNIQUE: Thoracic spine MRI without an d with intravenous contrast. CONTRAST: 20 mL IV Magnevist. Estimated GFR 67. COMPARISON: 07/27/2010 and 05/26/2010 [facility] spine MRIs. FINDINGS: Again demonstrated are postope rative changes of T2-T3 through T5-T6 laminectomies.The previously demon strated multiseptated peripherally enhancing fluid collection in the hospice executive director ior paraspinal soft tissues overlying the surgical bed containing mu ltiple fluid fluid levels has further decreased in size from 07/27/2010 , today measuring approximately 3.0 x 1.5 x 8.5 cm (AP x TR x CC) previousl y measuring 4.4 x 2.2 x 10.0 cm. As noted previously there has been resecti on of a portion of the upper thoracic cord from approximately T2-T3 d own to T5. Atrophic changes in the mid and lower thoracic cord. Expansile T 2 hyperintense area of signal abnormality in the lower thoracic cord c entered at the T11 vertebral body level with no associated enhancement. Th is region is not definitely change from last exam on the sagittal sequences . Axial sequences not obtained through this area. This area of signal a bnormality is new from 05/26/2010. Postradiation changes involving the henrry ow in the lower cervical and upper thoracic spine again noted extending rakesh n to approximately T7. Mild scattered degenerative changes. CONCLUSION: 1. Expansile nonenhancing T2 hyperintens e lesion or process in the lower thoracic cord centered at T11 is not sig nificantly changed compared to 07/27/2010 and new from 05/26/2010. This r emains indeterminate for edema or expansile nonenhancing tumor. 2. Previously demonstrated multiseptated fluid collection in the posterior paraspinal soft tissues in the upper tho racic region related to the previous laminectomy bed has further dec reased in size. Again noted are fluid fluid levels within this fluid col lection. 3. Previous resection of a portion of th e spinal cord from T2-T3 through T5 with atrophy of the mid and distal spin al cord again noted. 4. Postradiation changes in the marrow o f the cervical and mid-upper thoracic spine again noted. 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
--- OUTSIDE RECORDS SUMMARY | 2022-06-20 02:31 | XMS_ITS | Encounter Summary ---
:1945 Author Organization [facility] Address [address] [place] [address] Care Team Providers Name Role Phone Unavailable Primary Care Provider Unavailable Encounter Details Date Type Department Care Team Description 02/06/2011 Orders Only External to No Primary/Referring, Phy Social History Tobacco Use Types Packs/Day Years Used Date Smoking Tobacco: Never Alcohol Use Standard Drinks/Week Comments No 0 (1 standard drink = 0.6 oz pure alcoho l) Sex Assigned at Date Recorded Male 08/06/2021 5:59 PM CDT documented as of this encounter Procedure Notes [facility], Provider - 02/06/2011 12:00 AM CDTAssociated Order(s): BONE DENSITY documented in this encounter Plan of Treatment Not on filedocumented as of this encounter Procedures Procedure Name Priority Date/Time Associated Diagnosis Comme nts BONE DENSITY 02/06/2011 12:00 AM Results for this CDT procedure are i n the results section . documented in this encounter Results BONE DENSITY (02/06/2011 12:00 AM CDT) Anatomical Region Laterality Modality Other Specimen (Source) Anatomical Location Collection Method / Collectio n Time Received Time / Laterality Volume 02/06/2011 Narrative This result has an attachment that is no t available. Transcriptions [facility], Provider - 02/06 12:00 AM CDT Phy No Primary/Referring DUMMY/OTHER/AR documented in this encounter Visit Diagnoses Not on filedocumented in this encounter
--- OUTSIDE RECORDS SUMMARY | 2022-06-20 02:31 | XMS_ITS | Encounter Summary ---
:1945 Author [facility] Address [address] [place] [address] Care Team Providers Name Role Phone Unavailable Primary Care Provider Unavailable Encounter Details Date Type Department Care Team Description 03/13/2011 [facility] [address] [place] [address] Social History Tobacco Use Types Packs/Day Years [...] Date/Time Associated Diagnosis Comme nts XR C-ARM 1-1.5 Routine 03/13/2011 3:15 PM Results for this HOURS CDT procedure are i n the results section. documented in this encounter Results XR C-ARM 1-1.5 HOURS (03/13/2011 3:15 PM [...] order is completed and status is final. Satish Bowling MD RAD GD documented in this encounter Visit Diagnoses Not on filedocumented in this encounter
--- OUTSIDE RECORDS SUMMARY | 2022-06-20 02:31 | XMS_ITS | Encounter Summary ---
:1945 Author Organization [facility] Address [address] [place] [address] Care Team Providers Name Role Phone Unavailable Primary Care Provider Unavailable Encounter Details Date Type Department Care Team Description 03/05/2011 Orders Only External to Unknown, Physici an [address] [place], [place] [id number] (Wo rk) Social History Tobacco Use Types Packs/Day Years Used Date Smoking Tobacco: Never Alcohol Use Standard Drinks/Week Comments No 0 (1 standard drink = 0.6 oz pure alcoho l) Sex Assigned at Date Recorded Male 08/06/2021 5:59 PM CDT documented as of this encounter Procedure Notes External, Provider - 03/05/2011 12:00 AM CDTAssociated Order(s): SCANNED LAB documented in this encounter Plan of Treatment Not on filedocumented as of this encounter Procedures Procedure Name Priority Date/Time Associated Diagnosis Comme nts SCANNED LAB 03/05/2011 12:00 AM Results for this CDT procedure are i n the results section . documented in this encounter Results SCANNED LAB (03/05/2011 12:00 AM CDT) Specimen (Source) Anatomical Location Collection Method / Collectio n Time Received Time / Laterality Volume 03/05/2011 Narrative This result has an attachment that is no t available. Transcriptions External, Provider - 03/05/2011 12:00 AM CDT Physician Unknown LAB_1 documented in this encounter Visit Diagnoses Not on filedocumented in this encounter
--- OUTSIDE RECORDS SUMMARY | 2022-06-20 02:31 | XMS_ITS | Encounter Summary ---
:1945 Author Organization [facility] Address [address] [address] Care Team Providers Name Role Phone Unavailable Primary Care Provider Unavailable Encounter Details Date Type Department Care Team Description 02/08/2011 Correspondence [facility] Radiology, MRI SAFETY SHEET [address] [facility] [place] [address] Social History Tobacco Use Types Packs/Day Years Used Date Smoking Tobacco: Never Alcohol Use Standard Drinks/Week Comments No 0 (1 standard drink = 0.6 oz pure alcoho l) Sex Assigned at Date Recorded Male 08/06/2021 5:59 PM CDT documented as of this encounter Progress Notes [facility], PROVIDER - 02/16/2011 7:45 AM CDT documented in this encounter Plan of Treatment Not on filedocumented as of this encounter Visit Diagnoses Not on filedocumented in this encounter
--- OUTSIDE RECORDS SUMMARY | 2022-06-20 02:31 | XMS_ITS | Encounter Summary ---
:1945 Author Organization [facility] Address [address], [place] [address] Care Team Providers Name Role Phone Unavailable Primary Care Provider Unavailable Encounter Details Date Type Department Care Team Description 01/31/2011 Orders Only External to Julien Barillas MD Social History Tobacco Use Types Packs/Day Years Used Date Smoking Tobacco: Never Alcohol Use Standard Drinks/Week Comments No 0 (1 standard drink = 0.6 oz pure alcoho l) Sex Assigned at Date Recorded Male 08/06/2021 5:59 PM CDT documented as of this encounter Procedure Notes External, Provider - 01/31/2011 12:00 AM CDTAssociated Order(s): MRI ABDOMEN/PELVIS documented in this encounter Plan of Treatment Not on filedocumented as of this encounter Procedures Procedure Name Priority Date/Time Associated Diagnosis Comme nts MRI ABDOMEN/PELVIS 01/31/2011 12:00 AM Re sults for this CDT procedure are i n the results section. documented in this encounter Results MRI ABDOMEN/PELVIS (01/31/2011 12:00 AM CDT) Anatomical Region Laterality Modality Other Specimen (Source) Anatomical Location Collection Method / Collectio n Time Received Time / Laterality Volume 01/31/2011 Narrative This result has an attachment that is no t available. Transcriptions External, Provider - 01/31/2011 12:00 AM CDT Julien Quevedo MD DUMMY/OTHER/AR documented in this encounter Visit Diagnoses Not on filedocumented in this encounter
--- OUTSIDE RECORDS SUMMARY | 2022-06-20 02:31 | XMS_ITS | Encounter Summary ---
:1945 Author [facility] Address [address], [place] [address] Care Team Providers Name Role Phone Unavailable Primary Care Provider Unavailable Reason for Visit Reason Onset Date Comments LAB TESTS, NOS 02/08/2011 Encounter Details Date Type Department Care Team Description 02/08/2011 Telephone [facility] [address] Garry Neff MD LAB TESTS, NOS NeuroSurgery [address] [place] [address] [place] [address] [phone] Social History Tobacco Use Types Packs/Day Years Used Date Smoking Tobacco: Never Alcohol Use Standard Drinks/Week Comments No 0 (1 standard drink = 0.6 oz pure alcoho l) Sex Assigned at Date Recorded Male 08/06/2021 5:59 PM CDT documented as of this encounter Nursing Notes Michaelle Fletcher - 02/09/2011 3:03 PM CDT Patient last seen on 02/08/2011 as f/u for Brain tumor with f/u in 3 months scheduled for 05/10/2011. She was to stop on her way out for blood draw and was referred to for evaluation of Osteoporosis and to Dr.Christian Chaney-for the pathological fracture. Returned the call.He said that they forgot to stop at the lab for blood work. They would like to doin their clinic, since there is no clinic close by. I have given them the fax number to fax and names of the required blood work. They expressed understanding. Michaelle Fletcher R.N. . Sweetie Sterling - 02/08/2011 1:36 PM CDT Patient's requests call from Jennifer regarding ordered labs, as they forgot to stop before they left clinic. documented in this encounter Plan of Treatment Not on filedocumented as of this encounter Visit Diagnoses Not on filedocumented in this encounter
--- OUTSIDE RECORDS SUMMARY | 2022-06-20 02:31 | XMS_ITS | Encounter Summary ---
:1945 Author [facility] Address [address] [place] [address] Care Team Providers Name Role Phone Unavailable Primary Care Provider Unavailable Encounter Details Date Type Department Care Team Description 03/13/2011 [facility] [address] [place] [address] Social History Tobacco Use Types Packs/Day Years [...] Comme nts XR C-ARM 1-1.5 Routine 03/13/2011 4:15 PM Results for this HOURS CDT procedure are i n the results section. documented in this encounter Results XR C-ARM 1-1.5 HOURS (03/13/2011 4:15 PM [...]
--- OUTSIDE RECORDS SUMMARY | 2022-06-20 02:31 | XMS_ITS | Encounter Summary ---
:1945 Author Organization [facility] Address [address], [place] [address] Care Team Providers Name Role Phone Garry Neff MD Primary Care Provider Encounter Details Date Type Department Care Team Description 03/02/2011 Prep for Surgery [facility] Inessa Cook, Orthopedics [facility] [address] [place] [phone] Social History Tobacco Use Types Packs/Day Years [...] filedocumented in this encounter Care Teams Data Technician Relationship Specialty Start Date End Date Garry Neff MD PCP - General Neurosurgery 04/24/12 04/14/13 [address] [place] [address] documented as of this encounter
--- OUTSIDE RECORDS SUMMARY | 2022-06-20 02:31 | XMS_ITS | Encounter Summary ---
:[address] [facility] Address [address] [address] Care Team Providers Name Role Phone Unavailable Primary Care Provider Unavailable Encounter Details Date Type Department Care Team Description 02/26/2011 Correspondence External to External, Provid er MED[place] [address] Social History Tobacco Use Types Packs/Day Years Used Date Smoking Tobacco: Never Alcohol Use Standard Drinks/Week Comments No 0 (1 standard drink = 0.6 oz pure alcoho l) Sex Assigned at Date Recorded Male 08/06/2021 5:59 PM CDT documented as of this encounter Progress Notes Interface, In Chrtscr And Scan - 03/06/2011 10:35 AM CDT documented in this encounter Plan of Treatment Not on filedocumented as of this encounter Visit Diagnoses Not on filedocumented in this encounter
--- OUTSIDE RECORDS SUMMARY | 2022-06-20 02:31 | XMS_ITS | Encounter Summary ---
:1945 Author Organization [facility] Address [address], [place] [address] Care Team Providers Name Role Phone Unavailable Primary Care Provider Unavailable Encounter Details Date Type Department Care Team Description 03/14/2011 [facility] [address] [place] [address] Social History Tobacco Use Types Packs/Day Years [...] Date/Time Associated Diagnosis Comme nts XR KNEE RT 2 VIEWS Routine 03/14/2011 10:11 AM Re sults for this CDT procedure are i n the results section. XR KNEE LT 2 VIEWS Routine 03/14/2011 10:11 AM Re sults for this CDT procedure are i n the results section. documented in this encounter Results XR KNEE AP/LAT 2 VIEWS RIGHT (03/14/2011 [...] Demineralization of the visualized bones. Procedure Note Birgit Melton T - 03/14/2011Formatting of t his note [...] right knee. Demineralization of the visualized bones. Satish JIMENEZ XR KNEE AP/LAT 2 VIEWS LEFT (03/14/2011 [...] Degenerative arthritis left knee joint. Procedure Note Birgit Melton T - 03/14/2011Formatting of t his note [...] visualized bones. Degenerative arthritis left knee joint. Satish JIMENEZ documented in this encounter Visit Diagnoses Not on filedocumented in this encounter
--- OUTSIDE RECORDS SUMMARY | 2022-06-20 02:31 | XMS_ITS | Encounter Summary ---
:1945 Author Organization [facility] Address [address] [place] [address] Care Team Providers Name Role Phone Unavailable Primary Care Provider Unavailable Reason for Visit Reason Comments OSTEOPOROSIS Encounter Details Date Type Department Care Team Description 03/06/2011 Office Visit Specialty Center Quan Ames Ost eoporosis (Primary Dx); 401 Endocrinology MD Karen Benign tumor of thoracic site Clinic [address] [place] [address] [phone] (Wo rk) Social History Tobacco Use Types Packs/Day Years Used Date Smoking Tobacco: Never Alcohol Use Standard Drinks/Week Comments No 0 (1 standard drink = 0.6 oz pure alcoho l) Sex Assigned at Date Recorded Male 08/06/2021 5:59 PM CDT documented as of this encounter Last Filed Vital Signs Vital Sign Reading Time Taken Comments Blood Pressure 107/68 03/06/2011 10:01 AM CDT Pulse 80 03/06/2011 10:01 AM CDT Temperature - - Respiratory Rate - - Oxygen Saturation - - Inhaled Oxygen Concentration - - Weight 105.7 kg (233 lb) 03/06/2011 10:01 AM CDT Height 177.8 cm (5' 10) 03/06/2011 10:01 AM CDT Body Mass Index 33.43 03/06/2011 10:01 AM CDT documented in this encounter Patient Instructions Patient InstructionsQuan Ames - 03/06/2011 10:59 AM CDT Assessment and Plan: 1. Severe Osteoporosis: Based on nontraumatic bilateral leg fractures and T- scores <-2.5 of the hip (lowest -4.1). Spine is suprisingly normal, normal looking on dexa scan imaging as well. Has surgery scheduled for next Saturday for leg/knee fractures. Earlier this month at outside lab, testosteronewas low- normal, low normal calcium, high normal pth, hgb low, normal kidney function. No vitamin d 25 obtained. Forteo (teriparatide) is a once daily injection. Side effects include mild increases in calcium levels and light headedness. In rat studies, on much higher doses of Forteo, a type of bone cancer calledosteosarcoma had been documented; therefore we avoid using this in patients with a history of bone cancer, bone radiation or Paget's disease. Because of the history of radiation on back, this increasesthe risk of osteosarcoma, and will not use Forteo at this time. The data on healing bone with bisphosphonate therapy suggest no worsening of bone healing, and possibly some improvement on bone healing. Discussed risk of osteonecrosis of the jaw in patients using bisphosphonates is approximately 11/1699-1/100,000, with development most likely related to invasive dental procedures. Discussed that if an invasive dental procedure was necessary, we would preferably stop the bisphosphonate approximately 3 months prior to reduce the risk. The data available at this time is unclear whether there is an increase risk of subtrochanteric fractures of the femur in patients on bisphosphonate therapy compared to those not on it. If present, the risk seems to be very small. One large study suggested that for every 100 fractures prevented with bisphosphonate therapy, less than one femur fracture will occur, if in fact here is an association. Will hold off on any treatment now, and in 3 months likely start alendronate as long is the bones are healing well. -Discussed fall precautions: minimize tripping hazards including loose rugs, cords, etc. Hold on to railings as climb down stairs. Be careful when walking on ice or slick ground (or try to avoid altogether). -make sure getting 1500 mg of calcium total daily, preferably from diet but can also use supplementswith calcium and vitamin d. There is some data suggesting high dose calcium supplements without vitamin d can increase the risk of adverse cardiovascular events. This has not been the case when calciumis taken with vitamin d. -start weight bearing exercises per ortho -obtain lft's, vitamin d, pth, calcium, albumin today and in 3 months. Thank you for choosing Endocrinology Clinic at [facility] Treating physician: Quan Ames MD, Edge Drummer. Follow up visit in 3 months (patient needs to schedule) PLEASE STOP AT THE CHECKOUT DESK TO MAKE YOUR APPOINTMENT OR TO PLACE IT ON WAITING LIST. For appointments call: [phone] For question call our nurses at [phone] Care Line (after 5 PM, weekends and holidays): [phone] Mail order pharmacy: [phone] or Labs: today and 3 months (patient needs to schedule) For lab only appointments (Daily 7 a.m.-9 p.m.): [phone] Radiology: none (patient needs to schedule) TEST RESULTS: Usually [...] problem. documented in this encounter Progress Notes Quan Ames - 03/06/2011 10:20 AM CDT Endocrine New Patient Visit Reason for visit: Osteoporosis HPI: Carl Cullen is a 65 yr old male seen in consultation at the request of Dr. Nfef for osteoporosis. He has a history of thoracic ependymoma. Had fourth surgery in summer, two radiations prior as well. Fracture History: wrist fracture as a child. Is wheelchair bound. Lives at home, helps with transfer, per them pretty smooth. Recently found to have nontraumatic, asymptomatic fractures of left leg: Left and right lateral condyle fractures. Left tibial plateau fracture. Loss of Height: 1.5 inches Calcium, Vitamin D intake: no calcium, was on 50,000 IU weekly, now on 1000 IU daily. Stopped 50,000about 1-2 months ago. Contributing Medications: celexa now, history of glucocorticoid treatment, was on for 6 months in 2006. Sex hormone functioning: normal Current Therapy for osteoporosis: none Review of Systems: Please see HPI as well. No fevers, chills, weight change, headache, vision changes, visual field defects, chest pain, palpitations, dizziness, shortness of breath, abdominal pain, nausea, vomiting, diarrhea, constipation, sexual dysfunction, paresthesia, myalgias, arthalgias, depression, anxiety, rashes or skin lesions. Indwelling catheter. Past Medical History Diagnosis Date ??? 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 Glasgow at [place] in 05/2000. However resection was incomplete due [...] ??? Osteoporosis ??? Leg fracture, left nontraumatic : History Social History ??? Marital Status: [...] 1 at baseline. Lives with his in [place]. : Family History Problem Relation Age of Onset ??? Cancer, Colon Mother ??? Cancer, Other Brother brother with throat cancer ??? Cancer, Breast Sister ??? Osteoporosis Mother no history of fractures : Physical Exam: Psych: patient pleasant, appropriate Eyes: extra-ocular movements intact, visual kc intact, no proptosis ENT: moist mucus membranes, no oral, nasal mucosal lesions Thyroid: Thyroid normal size. No thyroid nodules. No thyroid bruit. Heme: no neck, axilla lymphadenopathy, no splenomegaly, no bruising CV: Regular rate and rhythm, no murmurs, no S3, no S4 Lungs: clear to auscultation bilaterally without wheezes or crackles Abdomen: + bowel sounds, nontender, non distended, no hepatomegaly Skin: no lesions, no edema Musculoskeletal: normal muscle tone. No kyphosis. No bone tenderness. Neurologic: 2+ deep tendon reflexes of extremities with normal relaxation. Labs: reviewed with patient Assessment and Plan: 1. Severe Osteoporosis: Based on nontraumatic bilateral leg fractures and T- scores <-2.5 of the hip (lowest -4.1). Spine is suprisingly normal, normal looking on dexa scan imaging as well. Has surgery scheduled for next Saturday for leg/knee fractures. Earlier this month at outside lab, testosteronewas low- normal, low normal calcium, high normal pth, hgb low, normal kidney function. No vitamin d 25 obtained. Forteo (teriparatide) is a once daily injection. Side effects include mild increases in calcium levels and light headedness. In rat studies, on much higher doses of Forteo, a type of bone cancer calledosteosarcoma had been documented; therefore we avoid using this in patients with a history of bone cancer, bone radiation or Paget's disease. Because of the history of radiation on back, this increasesthe risk of osteosarcoma, and will not use Forteo at this time. The data on healing bone with bisphosphonate therapy suggest no worsening of bone healing, and possibly some improvement on bone healing. Discussed risk of osteonecrosis of the jaw in patients using bisphosphonates is approximately 11/1699-1/100,000, with development most likely related to invasive dental procedures. Discussed that if an invasive dental procedure was necessary, we would preferably stop the bisphosphonate approximately 3 months prior to reduce the risk. The data available at this time is unclear whether there is an increase risk of subtrochanteric fractures of the femur in patients on bisphosphonate therapy compared to those not on it. If present, the risk seems to be very small. One large study suggested that for every 100 fractures prevented with bisphosphonate therapy, less than one femur fracture will occur, if in fact here is an association. Will hold off on any treatment now, and in 3 months likely start alendronate as long is the bones are healing well. -Discussed fall precautions: minimize tripping hazards including loose rugs, cords, etc. Hold on to railings as climb down stairs. Be careful when walking on ice or slick ground (or try to avoid altogether). -make sure getting 1500 mg of calcium total daily, preferably from diet but can also use supplementswith calcium and vitamin d. There is some data suggesting high dose calcium supplements without vitamin d can increase the risk of adverse cardiovascular events. This has not been the case when calciumis taken with vitamin d. -start weight bearing exercises per ortho -obtain lft's, vitamin d, pth, calcium, albumin today and in 3 months. Cc: Dr[place] [address] documented in this encounter Nursing Notes 03/06/2011 9:50 AM CDT >> Christina Humphreys LPN salome Mar 06, 2011 10:03 AM Patient is here today for osteoporosis. BP Readings from Last 3 Encounters: 03/06/11 : 107/68 02/28/11 : 84/56 02/08/11 : 110/70 Christina Humphreys LPN documented in this encounter Plan of Treatment Not on filedocumented as of this encounter Procedures Procedure Name Priority Date/Time Associated Diagnosis Comme nts TESTOSTERONE,TOTAL, Routine 03/06/2011 11:13 Benign tumor of R esults for this FREE & AM CDT thoracic site procedure are in BIOAVAILABLE, MALES the resu lts section. VITAMIN D Routine 03/06/2011 11:13 Osteoporosis Results for this 25-HYDROXY, TOTAL AM CDT procedure are in the results section. INTACT PTH + Routine 03/06/2011 11:13 Osteoporosis Results for this CALCIUM AM CDT procedure are i n the results section. CREATININE / GFR Routine 03/06/2011 11:13 Osteoporosis Results for this AM CDT procedure are i n the results section. LIVER PANEL(HEPATIC Routine 03/06/2011 11:13 Osteoporosis Resu lts for this FUNCTION PANEL) AM CDT procedure ar e in the results section. documented in this encounter Results TESTOSTERONE,TOTAL,FREE & BIOAVAILABLE (03/06/2011 11:13 AM CDT) P athologist Signature Sex Horm Bind 32 13 - 74 [facility] Glob nmol/L Testosterone, 285 183 - 703 [facility] Total ng/dl Testosterone, 5.7 3.8 - 12.8 [facility] Free ng/dl Testosterone, 133.0 89.0 - [facility] Bioav. 300.0 ng/dl Specimen Anatomical Collection Method Collection Time Receive d Time (Source) Location / / Volume Laterality 03/06/2011 11:13 03/06/2011 AM CDT 11:24 AM CDT Garry Neff MD LAB_1 Performing Organization Address City/State/ZIP Code Phon e Number [facility] [phone] [facility] [address] [address] (ABNORMAL) LIVER PANEL(HEPATIC FUNCTION PANEL) (03/06/2011 11:13 AM CDT) Patholo gist Method Time Signature Alkaline 170 (H) 38 - 126 [facility] Phosphatase U/L Bilirubin, 0.2 0.2 - 1.3 [facility] Total mg/dl Bilirubin, 0.0 0.0 - 0.3 [facility] Direct mg/dl ALT (SGPT) 31 0 - 69 [facility] U/L AST (SGOT) 22 0 - 55 [facility] U/L Protein, Total 7.0 6.3 - 8.2 [facility] g/dl Albumin 4.0 3.5 - 5.0 [facility] g/dl A/G Ratio, 1.3 >1.0 [facility] calc. Specimen Anatomical Collection Method Collection Time Receive d Time (Source) Location / / Volume Laterality 03/06/2011 11:13 03/06/2011 AM CDT 11:25 AM CDT Quan Ames MD LAB_1 Performing Organization Address [facility] Phon e Number [facility] [employer] [phone] [address] CREATININE / GFR (03/06/2011 11:13 AM CDT) Analysis Performed At [facility] Time Signature Creatinine 1.05 0.66 - [facility] 1.25 mg/dl GFR, Estimated >60.0 >60 [facility] ml/min/1.7 3m2 GFR, Est., If >60.0 >60 [facility] Black ml/min/1.7 3m2 Specimen Anatomical Collection Method Collection Time Receive d Time (Source) Location / / Volume Laterality 03/06/2011 11:13 03/06/2011 AM CDT 11:25 AM CDT Quan Ames MD LAB_1 Performing Organization Address [facility] Phon e Number [facility] [employer] [phone] [address] (ABNORMAL) INTACT PTH + CALCIUM (03/06/2011 11:13 AM CDT) Analysis Performed At [facility] Time Signature Intact PTH 106.0 (H) 14.0 - [facility] 72.0 pg/mL Comment: Performed at [facility] Calcium 8.8 8.4 - 10.2 mg/dL [facility] Comment: Performed at [facility] Specimen Anatomical Collection Method Collection Time Receive d Time (Source) Location / / Volume Laterality 03/06/2011 11:13 03/06/2011 AM CDT 11:24 AM CDT Quan Ames MD LAB_1 Performing Organization Address [facility] Phon e Number [facility] [employer] [phone] [address] VITAMIN D 25-HYDROXY, TOTAL (V77.99) (03/06/2011 11:13 AM CDT) athologist Signature Vitamin 31.6 30 - 80 [facility] D,25-OH, Tot ng/mL Comment: Deficiency: ??< 20 ng/mL Insufficiency: ??20-29 ng/mL Optimum Level: ??30-80 ng/mL Possible Toxicity: > 80 ng/mL Performed at [facility] Specimen Anatomical Collection Method Collection Time Receive d Time (Source) Location / / Volume Laterality 03/06/2011 11:13 03/06/2011 AM CDT 11:24 AM CDT Quan Ames MD LAB_1 Performing Organization Address [facility] Phon e Number [facility] [employer] [phone] [address] documented in this encounter Visit Diagnoses Diagnosis Osteoporosis ([facility]) - Primary Osteoporosis, unspecified 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
--- OUTSIDE RECORDS SUMMARY | 2022-06-20 02:31 | XMS_ITS | Encounter Summary ---
:1945 Author Organization [facility] Address [address], [place] [address] Care Team Providers Name Role Phone Unavailable Primary Care Provider Unavailable Reason for Referral Specialty Diagnoses / Procedures Referred By Contact Refer catina To Contact Garry Neff MD [address] [place] [address] Referral ID Status Reason Start Date Expiration Date Visits Requ ested Visits Authorized Scheduling Instructions If an appointment with [facility] was advised and you have not been contacted to schedule that appointment w ithin 3 business days, please call [phone], Option 1 for assistance. Specialty Diagnoses / Procedures Referred By Contact Joey dominique To Contact Garry Neff MD [address] [place] [address] Referral ID Status Reason Start Date Expiration Date Visits Requ ested Visits Authorized Scheduling Instructions If an appointment with [facility] was advised and you have not been contacted to schedule that appointm ent within 3 business days, please call [phone] for assistance. For Diabetes Type 2 - Specialist consult ation and treatment recommendations for management of Type 2 Diabetes can often be accomplished in one to three visits. After that, your Primary Care Provider can oft en resume the residential management of your diabetes treatment plan. Please discuss this with your Channel Worker. Reason for Visit Reason Comments Revisit F/u Encounter Details Date Type Department Care Team Description 02/08/2011 Office Visit Specialty Center Garry Neff tumor of thoracic site (Primary Dx); 401 NeuroSurgery XMD Unspecified osteoporosis [address] [place] [address] [place] [phone] (Wo rk) Social History Tobacco Use Types Packs/Day Years Used Date Smoking Tobacco: Never Alcohol Use Standard Drinks/Week Comments No 0 (1 standard drink = 0.6 oz pure alcoho l) Sex Assigned at Date Recorded Male 08/06/2021 5:59 PM CDT documented as of this encounter Last Filed Vital Signs Vital Sign Reading Time Taken Comments Blood Pressure 110/70 02/08/2011 11:18 AM CDT Pulse 76 02/08/2011 11:18 AM CDT Temperature 36.7 ??C (98 ??F) 02/08/2011 11:18 AM CDT Respiratory Rate 18 02/08/2011 11:18 AM CDT Oxygen Saturation - - Inhaled Oxygen Concentration - - Weight - - Height - - Body Mass Index - - documented in this encounter Patient Instructions Patient InstructionsRuSelene tee RN - 02/08/2011 12:23 PM CDT Neurosurgery/Spine Clinic Patient Instructions Your MRI from today did not show any recurrent tumor. Please stop at the third floor for lab draws-today. You have been referred to for evaluation of your Osteoporosis. You have been referred to Dr.Christian Chaney-for the pathological fracture. You will be scheduled for a thoracic MRI in 3 months prior to your appointment. Follow up with Dr. Garry Neff in 3 months. If tests were ordered, they will be reviewed at your next office visit. Please allow 10-14 days for forms to be completed and 2-3 business days for medication refills. Please call the Neurosurgery/Spine Clinic at [phone] with any further questions or concerns. documented in this encounter Progress Notes Garry Neff - 04/17/2011 11:15 AM CDT I, Lucy Parker PA-C, am acting as a side stitching machine operator for Dr. Neff, I am transcribing directly from notes Dr. 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 Currently pt has no new complaints or concerns at this time, he is here today to discuss his MRI results. Patient does admit today that he has fractures in bilateral knees. Objective: BP 110/70 Pulse 76 Temp(Src) 98 ??F (36.7 ??C) (Oral) Resp 18 The incision site appears clean, dry with well-approximated edges and no signs of infection or dehiscence. Thoracic MRI: 1. No evidence of residual or recurrent tumor. 2. Stable postoperative changes involving the intraspinal contents with atrophy of the lower cervical as well as a significant portion of the thoracic cord. 3. There is some mild persistent T2 signal with relatively normal size of the lower thoracic cord. The cord in this region is unchanged in size and signal characteristics compared to 04/05/2010 and 11/06/2010. No evidence of syrinx. 4. Postoperative changes related to T3-T6 laminectomies with decrease in the postoperative fluid collections in the posterior paraspinal soft tissues in the upper thoracic region Assessment: 65 yo male s/p thoracic ependymoma debulking with [...] was seen and evaluate by Dr. Neff MRI shows no recurrent tumor Will draw testosterone level today Consult Dr. Ames for an osteoporosis evaluation Consult Dr. Satish Chaney-for the pathological fracture We will have patient followup in 3 months with a repeat MRI Dr. Neff discussed the plan in full with pt and answered all questions Lucy Parker PA-C Agree with above Garry Neff MD documented in this encounter Plan of Treatment Scheduled Referrals Name Type Priority Associated Diagnoses Order S chedule ENDOCRINOLOGY Referral Routine Ordered: 02/08 CONSULT-ADULTS ORTHOPAEDIC/SPORTS MED Referral Routine Benign tumor of Or dered: 02/08/2011 CONSULT ADULT/PEDS thoracic site documented as of this encounter Results MR THORACIC SPINE WITH/WITHOUT CONTRAST (05/24/2011 10:19 [...] is indeterminate. Garry Neff MD RAD MRI TESTOSTERONE,TOTAL,FREE & BIOAVAILABLE (03/06/2011 11:13 AM CDT) athologist Signature Sex Horm Bind 32 13 - 74 [facility] Glob nmol/L Testosterone, 285 183 - 703 [facility] Total ng/dl Testosterone, 5.7 3.8 - 12.8 [facility] Free ng/dl Testosterone, 133.0 89.0 - [facility] Bioav. 300.0 ng/dl Specimen Anatomical Collection Method Collection Time Receive d Time (Source) Location / / Volume Laterality 03/06/2011 11:13 03/06/2011 AM CDT 11:24 AM CDT Garry Neff MD LAB_1 Performing Organization Address City/State/ZIP Code Phon e Number [facility] [phone] [facility] [address] [address] documented in this encounter Visit Diagnoses Diagnosis Benign tumor of thoracic site - Primary Benign neoplasm of other specified sites Osteoporosis, unspecified ([facility]) Osteoporosis, unspecified Screening for nephropathy - Primary documented in this encounter
--- OUTSIDE RECORDS SUMMARY | 2022-06-20 02:31 | XMS_ITS | Encounter Summary ---
:1945 Author Organization [facility] Address [address], [place] [address] Care Team Providers Name Role Phone Unavailable Primary Care Provider Unavailable Encounter Details Date Type Department Care Team Description 02/27/2011 [facility] [address] [place] [id number] Social History Tobacco Use Types Packs/Day Years [...] Associated Diagnosis Comme nts XR KNEE LT Routine 02/27/2011 10:15 AM Results for this AP/LAT/SUN CDT procedure are i n the results section. documented in this encounter Results XR KNEE AP/LAT/SUNRISE LEFT (02/27/2011 10:15 AM CDT) Anatomical Region Laterality Modality Lower Extremity, Knee Computed Radiograp hy Specimen (Source) Anatomical Collection Method Collection Time Re ceived Time Location / / Volume Laterality 02/27/2011 10:15 AM CDT Narrative 02/27/2011 10:55 AM CDT ?XR KNEE AP//LAT/SUN RT ? 02/27/2011, 10:15:00 AM INDICATION: Knee pain. COMPARISON: None. FINDINGS: RIGHT KNEE: Osseous structures are demin eralized. There is a fracture extending through the lateral aspect of the right distal femur with probable intra-articular extension. Ques tion the presence of callus formation suggesting chronicity. Widenin g of the joint space lateral is seen. Tricompartment spurring is seen mo st evident medially and involving the patellofemoral compartment. Joint ef fusion is present. LEFT KNEE: Osseous structures are demine ralized. There is a slightly depressed fracture of the medial tibial plateau. There is a minimally displaced fracture involving the lateral aspect of the distal femur with probable intra-articular extension. Ther e is patellofemoral compartment and to a lesser extent lateral compartment spurring. There is prominent medial compartment joint space narrowing. Join t effusion is present. Findings were called to Dr. Satish ahn at time of dictation. Procedure Note Kai Fajardo Evelyn II - 02/28/2011Formatting o f this note might be different from the original. XR KNEE AP//LAT/SUN RT 02/27/2011, 10:15:00 AM INDICATION: Knee pain. COMPARISON: None. FINDINGS: RIGHT KNEE: Osseous structures are demin eralized. There is a fracture extending through the lateral aspect of the right distal femur with probable intra-articular extension. Ques tion the presence of callus formation suggesting chronicity. Widenin g of the joint space lateral is seen. Tricompartment spurring is seen mo st evident medially and involving the patellofemoral compartment. Joint ef fusion is present. LEFT KNEE: Osseous structures are demine ralized. There is a slightly depressed fracture of the medial tibial plateau. There is a minimally displaced fracture involving the lateral aspect of the distal femur with probable intra-articular extension. Ther e is patellofemoral compartment and to a lesser extent lateral compartment spurring. There is prominent medial compartment joint space narrowing. Join t effusion is present. Findings were called to Dr. Satish han at time of dictation. Satish SAMSON GD documented in this encounter Visit Diagnoses Not on filedocumented in this encounter
--- OUTSIDE RECORDS SUMMARY | 2022-06-20 02:31 | XMS_ITS | Encounter Summary ---
:1945 Author Organization [facility] [employer] Address [address] [address] Care Team Providers Name Role Phone Unavailable Primary Care Provider Unavailable Reason for Referral Specialty Diagnoses / Procedures Referred By Contact Refer red To Contact Karl Mcclain MD [address] [place] [address] Referral ID Status Reason Start Date Expiration Date Visits Requ ested Visits Authorized Scheduling Instructions If an appointment with [facility] was advised and you have not been contacted to schedule that appointment w ithin 3 business days, please call [phone], Option 1 for assistance. Encounter Details Date Type Department Care Team Description 03/13/2011 - Hospital S9 Unassigned, Provider [address] [place] [address] Osteoporosis; 03/16/2011 Encounter [facility] Karl Mcclain MD [address] [place] [address] DVT (deep venous thrombosis); [place], [place] Neurogenic bl adder; [address] HTN (hypertension); [phone] Spasm; Constipation; Hyperlipidemia; Unspecified ost eoporosis; Ac DVT/embl low ext NOS; Neurogenic blad swanpil, NOS; Unspecified ess ential hypertension; Abnormal involu ntary movements; Unspecified con stipation; Other and unspe cified hyperlipidemia Social History Tobacco Use Types Packs/Day Years Used Date Smoking Tobacco: Never Alcohol Use Standard Drinks/Week Comments No 0 (1 standard drink = 0.6 oz pure alcoho l) Sex Assigned at Date Recorded Male 08/06/2021 5:59 PM CDT documented as of this encounter Last Filed Vital Signs Vital Sign Reading Time Taken Comments Blood Pressure 130/80 03/16/2011 7:42 AM CDT Pulse 97 03/16/2011 7:42 AM CDT Temperature 36.8 ??C (98.2 ??F) 03/16/2011 7:42 AM CDT Respiratory Rate 16 03/16/2011 7:42 AM CDT Oxygen Saturation 97% 03/16/2011 7:42 AM CDT Inhaled Oxygen Concentration - - Weight 105.7 kg (233 lb) 03/13/2011 12:20 PM CDT Height 177.8 cm (5' 10) 03/13/2011 12:20 PM CDT Body Mass Index 33.43 03/13/2011 12:20 PM CDT documented in this encounter Discharge Summaries Edith Pope RN - 03/16/2011 4:53 PM CDT [facility] Discharge Note - Nursing Admission [...] Raquel Cook - 03/16/2011 1:26 PM CDT [facility] Orthopedic Discharge Note Patient Name: Carl Cullen [...] 2000 S/p resection by Dr. Glasgow at [facility] in 05/2000. However resection was incomplete due [...] early for Xrays Provider: Dr Karl Mcclain [facility]: Orthopaedics; [phone]; [address] [place] [address] Scheduling Instructions: If an appointment with [facility] Orth[facility]ed[facility] was advised and you havenot been contacted to schedule that appointment within 3 business days, please call [phone], Option 1 for assistance. Order Specific Question [...] red, swollen and painful contact Orthopaedics at #[phone]. Continue dailydressing changes for wounds that continue to drain clear fluids, discontinue use of dressings when wound become dry and are no longer draining. Order Specific Question Answer Comments Wound Measurement - Type of wound surgical Location of wound bilateral lower extremities Contact Orthopedic Surgeon Order Comments: Contact Orthopedic Surgeon if considering discontinuing or changing the anticoagulation order. Contact information (name/clinic/phone number): [phone] When to Resume Normal Activities: Order Comments: Do not resume normal activities until you are seen in the clinic DISCHARGE MD NAME Order Comments: I, KARL MCCLAIN MD, take responsibility for the discharge of [...] Order Comments: You will be back to [facility], at the Surgical Specialties Clinic , 1st. Floor at[address] [place], [place]. [phone] DR. MCCLAIN ON 03/27/11 9:15 AM FOR POST OPCHECK AND X RAY TAKEN Diet Order Comments: Regular Condition at Discharge: Stable Prognosis: Good Rehab Potential: Good Code Status: Full Code Lab Tests Order Comments: INR/PROTIME SCHEDULING INSTRUCTIONS (date/time): every Saturday and until INRreaches goal of 2-3.ROUTE RESULTS TO: .PMD Dr Loretta Mcmahan at [facility]. Please complete CBC-without diff one week [...] Comments 03/15/11 0643 10 MG Increased Dose to manage DVT/PE 2-3 Enoxaparin- Full Anticoagulation [...] of breath Community Resources NONE Contact Information [address] [address] For questions about your discharge instructions call the nursing unit : S9, Emergency & Urgently Needed Care: For emergencies call 911 and/or get medical help right away. If you are a [facility] member and have medical needs after clinic hours you may call the CareLineat [phone] or . Smoking and second-hand smoke exposure: Smoking damages blood vessels, reduces the oxygen in your blood and makes your heart beat too fast. If you smoke you should quit. Everyone should avoid second- hand smoke. If you would like further assistance after your discharge, please contact [phone] or visit [email or web address] [facility] [employer] can offer further [...] weight will also be followed by the Child Center Assistant when you go in for your treatment. [...] Jennifer Seth - 03/16/2011 11:15 AM CDT [facility] Care Management Discharge Note Admission Date/Time: 03/13/2011 [...] wheelchair with a follow up appointment at [facility] PT seating clinic as instructed. Jeff and his are happy to have this service and are pleased with how much more comfortable theloaner wheelchair is for Jeff. Jeff prefers to f/u at his clinic for INR draws and their local, [facility] physical therapy, for the out patient OT. [...] Report completed by VALERIE Peace/PHN, Pager Number [phone] --- End of Report --- AT Kehinde De La Cruz, OTR/L - 03/16/2011 10:11 AM CDT [facility] Rehabilitation Cord Occupational Therapy - Progress Note Treatment Summary: [...] from his to thread B legs and sheeting puller hips while pt in supine. Pt [...] patient contact: 45 minutes [facility] Lee/Kateryna (pager [phone]) OT Dept #: [phone] - OT Weekend Pager #: [phone] - Rehabilitation Cord Main #: [phone] Cecile Browne Jagdish - 03/16/2011 8:40 AM CDT Hospital Medicine Progress Note Date of Service: [...] DVT: Outpatient regiment-10mg on Saturday and 7.5mg -Sat. --INR continues to be sub-therapeutic, continue therapeutic [...] Medicine perspective (orders complete) Cecile Browne PA-C [facility] [phone] Raudel Starr - 03/16/2011 7:25 AM CDT Orthopaedic Surgery [...] today Raudel Starr MD G2 Orthopaedic Resident [phone] Awilda Knox RN - 03/16/2011 3:32 AM CDT [facility] Progress Note (Nursing) Identify/Problem(s): Comfort Desired Outcome(s): [...] of Report --- Corie Welsh RN - 03/15/2011 9:59 PM CDT [facility] Progress Note (Nursing) Identify/Problem(s): GI/pain Desired Outcome(s): [...] End of Report --- Kehinde De La Cruz OTR/L - 03/15/2011 3:45 PM CDT [facility] - Rehabilitation Cord Occupational Therapy - Progress Note Treatment Summary: [...] fit of pt's current manual w/c. Physician's escrow assistant and homeowner association manager Jennifer contacted to request order for [...] patient contact: 30 minutes [facility] Lee/Kateryna (pager [phone]) OT Dept #: [phone] - OT Weekend Pager #: [phone] - Rehabilitation [facility] Main #: [phone] Bayron Bernstein RN - 03/15/2011 2:20 PM CDT [facility] Progress Note (Nursing) Identify/Problem(s): Pain/Comfort Constipation Mobility [...] Kirkland - 03/15/2011 1:10 PM CDT [facility] AGRICULTURAL RESEARCH ENGINEER NOTE - The pt received communion today. Fr. Mitch Kirkland [facility] Cecile Browne - 03/15/2011 11:47 AM CDT [facility] Medicine Progress Note Date of Service: [...] management, activity per ortho Cecile Browne PA-C [facility] Medicine [phone] Raudel Starr - 03/15/2011 8:24 AM CDT Orthopaedic Surgery [...] Hemogram ordered POD #1,2,3 - f/u with [place] in 2 wks. -Dispo: will need 3-4 more days of OT Raudel Starr MD G2 Orthopaedic Resident [phone] Awilda Knox RN - 03/15/2011 4:04 AM CDT [facility] Progress Note (Nursing) Identify/Problem(s): Comfort Desired [...] Continue to monitor; DC plans TBD. Awilda Friedman, VALERIE --- End of Report --- Corie Welsh RN - 03/14/2011 11:53 PM CDT [facility] Progress Note (Nursing) Identify/Problem(s): Mobility/pain Desired [...] Bernstein RN - 03/14/2011 6:04 PM CDT [facility] Progress Note (Nursing) Identify/Problem(s): Pain/Comfort Mobility Desired [...] RN --- End of Report --- Cecile Browne - 03/14/2011 6:00 PM CDT [facility] Medicine Progress Note Date of Service: [...] Asymptomatic. Monitor for tachycardia/hypotension. Cecile Browne PA-C [facility] [phone] Jennifer Seth - 03/14/2011 2:21 PM CDT [facility] Care Management Stenocaptioner Initial Assessment Admission Date/Time: 03/13/2011 5:03 PM Attending MD: Karl Mcclain Data Carl Cullen was referred to this Stenocaptioner for discharge planning. Chart reviewed, discussed with interdisciplinary team, as well as with patient and family. 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 Insurance: Payor: MEDICARE PART B ONLY [id number] Plan: MEDICARE PART B ONLY Product Type: Medicare Current Living Situation: Patient lives with their spouse. Support System: / family Services Involved: Jeff has been using [facility] in [facility]. Additional Data: PMD Dr Loretta Mcmahan at [facility]. Coordination of Care and Referrals: Provided [...] a regular wheel chair, Stander, new step tool and die inspector and a transfer board. Jeff and his have paid out of pocket for most equipment with only the electric wheelchair being covered by medicare 3 years ago. Sheron mentioned that his regular wheelchair they obtained via an [employer] and Jeff has never been assessed for [...] W/C seating appointment is needed. Jeff uses [employer] for urinary catheters and supplies. Jeff has not been to a TCU in the past and prefers to d/c home. PMD is Dr Mcmahan at [facility] ( usually every three weeks for INR draws) PM&R is Dr Randle at [facility]. Plan Anticipated Discharge Date: TBD Anticipated Discharge Plan: home with family? Plan for Follow Up: Will follow Report completed by VALERIE Peace/PHN, Pager Number [phone] --- End of Report --- MahamedrRuadel - 03/14/2011 8:09 AM CDT Orthopaedic Surgery [...] - f/u with [facility] in 2 wks. Raudel Starr MD G2 Orthopaedic Resident [phone] Awilda Knox, RN - 03/14/2011 2:38 AM CDT [facility] Progress Note (Nursing) Identify/Problem(s): Comfort Desired [...] (36.6 ??C) Oral 88 16 99 % 03/13/110 105/63 mmHg - - 88 16 100 % Pt a/ox4, at bedside. Medicated with Dilaudid 0.6 mg for general ache/discomfort with stated relief. Kai dressings on BLE CDI. Green output 300 ml. Plan: Continue to monitor. Awilda Friedman, RN --- End of Report --- Awilda Knox RN - 03/14/2011 12:23 AM CDT [facility]. MD Notified Note Name of MD notified: Esmer Cruz Time of MD notification: 0000 hours and 10 minutes Reason: What specific time do you want Enoxaparin to start? Response: Changed to Q 12 Hrs-start at 0800. (Initially it was ordered at 2315, only 6 hrs after surgery). Awilda Friedman RN --- End of Report --- Lisette Espinal RN - 03/13/2011 11:21 PM CDT [facility] Progress Note (Nursing) Identify/Problem(s): S/Post-op Desired Outcome(s): [...] Voss PharmD - 03/13/2011 7:43 PM CDT [facility] Clinical Pharmacy Medication Reconciliation Note Medication History: [...] resumed. PHARMACIST NAME: Florinda Voss Phone/Pager #: [phone] --- End of Report --- documented in this encounter Procedure Notes [facility] ANESTHESIA, PROVIDER - 03/17/2011 3:44 AM CDT [facility], PROVIDER - 03/17/2011 3:44 AM CDTAssociated Order(s): EKG IP; EKG IP [facility] ANESTHESIA, PROVIDER - 03/17/2011 3:44 AM CDT [facility], PROVIDER - 03/14/2011 4:52 PM CDT [facility], PROVIDER - 03/14/2011 4:52 PM CDT [facility] ANESTHESIA, PROVIDER - 03/14/2011 4:52 PM CDT [...] and has been doing various stretching exercises wrlfxsdkacxuywz-bq-bedp rotation stretching of his hips. That started [...] estimate is 250 mL. Karl Mcclain MD SHAPER HAND:nelly Dictated: 03/13/2011 18:10:30 Transcribed: 03/13/2011 19:26:48 Job: [id number] Doc: [id number] cc: Raquel Cook - 03/13/2011 5:12 PM CDT [facility] Brief Operative Note Name: Carl Cullen Age: 65 yr Gender: male Attending Provider: Karl Mcclain Date: 03/13/2011 Preop dx: Left tibia plateau, right femoral condyle, left femoral condyl fractures Postop dx: same Procedure: ORIF Left tibia plateau, ORIF right femoral condyle, ORIF left femoral condyl Surgeon: Dr Karl Mcclain Microbiology Supervisor: Raquel Cook PA-C Anesthesia: General IVF: 1800 [...] no residents available for the case. Raquel Cook PA-C 03/13/2011, 5:12 PM [phone] pager documented in this encounter Consult Notes Esmer Cruz - 03/13/2011 11:19 PM CDTAssociated Order(s): MEDICINE INPT CONSULT [facility] Medicine Consultation Note (MD) Date of [...] 1999 S/p resection by Dr. Glasgow at [facility] in 05/2000. However resection was incomplete due [...] postop bleed cmpl ??? Total knee replacement (73607) right ??? Ivc filter placement 1999 Family History Problem Relation Age of Onset ??? Cancer, Colon Mother ??? Cancer, Other Brother brother with throat cancer ??? Cancer, Breast Sister ??? Osteoporosis Mother no history of fractures Social History Occupational History ??? [employer] ??? [employer] ??? retired/disability Social History Main Topics ??? [...] dose was 10mg on Saturday and 7.5mg -Sat. ?? Chronic constipation: home stool regimen is [...] Report Completed by: Esmer Cruz PA-C Pager: [phone] documented in this encounter OR Notes H&P - [facility], PROVIDER - 03/17/2011 10:52 AM CDT H&P - External, Provider - 03/17/2011 10:51 AM CDT documented in this encounter Miscellaneous Notes Media - [facility], PROVIDER - 03/21/2011 3:50 AM CDT Media - [facility], PROVIDER - 03/17/2011 10:53 AM CDT Media - [facility], PROVIDER - 03/17/2011 7:17 AM CDT Media - [facility], PROVIDER - 03/17/2011 3:44 AM CDT Media - [facility], PROVIDER - 03/13/2011 11:30 AM CDT Media - [facility], PROVIDER - 03/13/2011 11:30 AM CDT documented [...] while on warfarin) (03/16/2011 6:56 AM CDT) P athologist Signature Protime 17.7 (H) 12.0 - 14.5 [facility] sec INR 1.5 [facility] Specimen Anatomical Collection Method Collection Time Receive d Time (Source) Location / / Volume Laterality 03/16/2011 6:56 AM 1 7:00 CDT AM CDT Karl Mcclain MD LAB_1 Performing Organization Address [facility]/ZIP [facility] Phon e Number [address] [address] [place], [place] [phone] POTASSIUM (03/16/2011 6:56 AM CDT) P athologist Signature Potassium 4.1 3.5 - 5.3 [facility] mmol/L Specimen Anatomical Collection Method Collection Time Receive d Time (Source) Location / / Volume Laterality 03/16/2011 6:56 AM 1 7:00 CDT AM CDT Karl Mcclain MD LAB_1 Performing Organization Address [facility] Phon e Number [address] [address] [place], [place] [phone] (ABNORMAL) INR/Protime (daily while on warfarin) (03/15/2011 6:43 AM CDT) P athologist Signature Protime 16.1 (H) 12.0 - 14.5 [facility] sec INR 1.3 [facility] Specimen Anatomical Collection Method Collection Time Receive d Time (Source) Location / / Volume Laterality 03/15/2011 6:43 AM 1 7:07 CDT AM CDT Karl Mcclain MD LAB_1 Performing Organization Address [facility] Phon e Number [address] [address] [place], [place] [phone] (ABNORMAL) Hemogram with Platelets (POD #1, 2, 3) (03/15/2011 6:43 AM CDT) P athologist Signature WBC 8.2 4.0 - 11.0 [...] Organization Address City/State/ZIP Code Phon e Number [address] [address] [place], [place] [phone] XR KNEE AP/LAT 2 VIEWS RIGHT (03/14/2011 [...] Demineralization of the visualized bones. Procedure Note Geronimo Birgit T - 03/14/2011Formatting of t his note [...] Degenerative arthritis left knee joint. Procedure Note GeronimoBirgit T - 03/14/2011Formatting of [...] Organization Address City/State/ZIP Code Phon e Number [address] [address] [place], [place] [phone] BASIC METABOLIC PANEL (03/14/2011 7:07 AM CDT) athologist Signature BUN 16 7 - 20 [facility] mg/dl [...] Karl Mcclain MD LAB_1 Performing Organization Address City/[facility] Phon e Number [address] [address] [place], [place] [phone] (ABNORMAL) Hemogram with Platelets (POD #1, 2, 3) (03/14/2011 7:07 AM CDT) P athologist Signature WBC 6.1 4.0 - 11.0 [...] Karl Mcclain MD LAB_1 Performing Organization Address [facility] Phon e Number [address] [address] [place], [place] [phone] GLUCOSE, WHOLE BLOOD POC (03/13/2011 9:48 PM CDT) P athologist Signature Glucose, Whole 114 70 - 180 [facility] Blood mg/dl Comment: Point of Care Testing RN Notified Specimen Anatomical Collection Method Collection Time Receive d Time (Source) Location / / Volume Laterality 03/13/2011 9:48 PM 1 1:26 CDT AM CDT Karl Mcclain MD LAB_1 Performing Organization Address City/State/ZIP Code Phon e Number [address] [address] [place], [place] [phone] XR C-ARM 30-59 MIN (03/13/2011 5:00 PM [...] TUBE ([facility] ONLY) (03/13/2011 12:51 PM CDT) [facility] Method Time Signature BB Hold Tube Blood Bank [facility] save tube expires in 3 days Specimen Anatomical Collection Method Collection Time Receive d Time (Source) Location / / Volume Laterality 03/13/2011 12:51 03/13/2011 PM CDT 12:58 PM CDT Karl Mcclain MD LAB_1 Performing Organization Address [facility] Phon e Number [address] [address] [place], [place] [phone] INR/PROTIME (03/13/2011 12:40 PM CDT) athologist Signature Protime 13.2 12.0 - 14.5 [facility] sec INR 1.0 [facility] Specimen Anatomical Collection Method Collection Time Receive d Time (Source) Location / / Volume Laterality 03/13/2011 12:40 03/13/2011 PM CDT 12:55 PM CDT Raquel Cook PA-C LAB_1 Performing Organization Address [facility] Code Phon e Number [address] [address] [place], [place] [phone] TYPE & Crossmatch (units available for 3 days) (03/13/2011 12:40 PM CDT) [facility] Method Time Signature ABO/RH(D) A NEGATIVE [facility] Antibody NEGATIVE [facility] Screen Crossmatch 03/16/2011 [facility] Expires Specimen Anatomical Collection Method Collection Time Receive d Time (Source) Location / / Volume Laterality 03/13/2011 12:40 03/13/2011 PM CDT 12:56 PM CDT Latrice Triana MD LAB_1 Performing Organization Address City/[facility]/ZIP [facility] Phon e Number [address] [address] [place], [place] [phone] (ABNORMAL) HEMOGRAM/PLTS (03/13/2011 12:40 PM CDT) P [...] Raquel Cook PA-C LAB_1 Performing Organization Address City/State/ZIP Code Phon e Number [address] [address] [place], [place] [phone] EKG IP (03/13/2011 12:00 AM CDT) Specimen (Source) Anatomical Location Collection Method / Collectio n Time Received Time / Laterality Volume 03/13/2011 Narrative This result has an attachment that is no t available. Transcriptions [facility], PROVIDER - 03/17/2011 3:44 AM C DT [...] and unspecified hyperlipidemia Initial Assessments - Trudi Raymundo PT - 03/15/2011 5:03 PM CDT PHYSICAL THERAPY SEATING/MOBILITY EVALUATION Carl Cullen [address] [facility] [phone] 1945 Estimated Body mass index is 33.43 kg/(m^2) as calculated from the following: Height as of this encounter: 5' 10(1.778 m). Weight as of this encounter: 233 lb(105.688 kg). 03/15/2011 Karl Mcclain MD [address] [place] [address] Diagnosis: Paraplegia Payor: MEDICARE PART B ONLY [id number] Plan: MEDICARE PART B ONLY Product Type: Medicare Physician: referring physician Karl Mcclain MD (orthopedics) Funding: Medicare / Tricare Vendor: [employer] Seating and Mobility Onset Date: 03/13/11 MEDICAL HISTORY: History/Progression: He has a history of thoracic ependymoma for a number of years, initial rehab [facility]. No customized seating at any point and [...] ??? HTN (Hypertension) 401.9AE ??? CAREPLAN: BACLOFEN [address] ??? Osteoporosis 733.00C Past Medical History Diagnosis Date ??? 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 Glasgow at [facility] in 05/2000. However resection was incomplete due [...] postop bleed cmpl ??? Total knee replacement (95404) right ??? Ivc filter placement 1999 Recent/Planned Surgeries: 03/13/11 PROCEDURE: 1. Plating of right lateral femoral condyle. 2. Plating of left lateral femoral condyle. 3. Plating of left medial tibial plateau fracture. Cardio-Respiratory Status: intact CURRENT SEATING/MOBILITY: (Type - Structural Shop Helper-Model) Chair: [employer] W/C, age: 3 1/2 years w/c Cushion: [...] driving. 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 A manual wheelchair (customer engagement specialist weight than is Breezy) could potentially be appropriate. Regardless, he should have an opportunity to try some various rehab seating options before a final decision is made and thus a follow up outpatient PT evaluation for seating is necessary. Goal: 1. Patient to have a wider manual wheelchair with pressure relieving cushion that is customer engagement specialist weight to allow for better positioning and [...] but will be available via telephone. Trudi Raymundo, PT 03/15/11 Initial Assessments - Kehinde De La Cruz, OTR/L - 03/14/2011 3:[address] [facility] Occupational Therapy ADL Evaluation Diagnosis: Encounter Diagnoses [...] 2000 S/p resection [address] Dr. Glasgow at [facility] in 05/2000. However resection was incomplete due [...] in chair. Will follow up with family, field nurse case manager and therapy dept re: w/c. Assessment/Recommendations: The [...] time spent in patient contact: 45 minutes Kehinde De La Cruz OTR/L (pager) OT Dept #: [phone] - OT Weekend Pager #: [phone] - Rehabilitation [facility] Main #: [phone] --- End of Report --- Initial Assessments - Lisette Espinal RN - 03/13/2011 8:40 PM CDT [facility] Med-Surg / ICU / Rehab / Burn [...] care after hospitalization?: self and () Heather gracia phone-[phone] Recent Exposure to Communicable Diseases Within the [...] from returning to independent or assisted living PSYCHOSOCIAL/SPIRITUAL/RASTAFARIAN/CULTURAL/ABUSE/CHEMICAL Suicide Health Inventory Do you currently have [...] issues for which support from the hospital motorboat operator might be helpful to patient and/or [...] Lines & Tubes: 1 Medications (CV or TOY PARTS FORMER SUPERVISOR): 2 Falls Risk Score: (0-4 Low) (5-10 Moderate) (11+ High): 8 Restraints Assessment Restraint Risks: None Patient behaviors that put them at risk for restraint use?: No I acknowledge that the above adult initial assessment is complete. Yes, the above assessment is complete. documented in this encounter Administered Medications Inactive Administered Medications - up to 3 most recent administrations Medication Order MAR Action Action Date Dose Rate Site acetaminophen (aka TYLENOL) tablet Given 03/16/2011 8:00 AM CDT 650 mg 650 mg 650 mg, Oral, Q6H, First dose on Sat03/13/11 at 2000, Until Discontinued, Maximum Daily Acetaminophen dose for patients > 53 k grams per 24 hours Maximum Daily Acetaminophen dose for patients < 53 k mg/kg/day This includes all sources of acetaminophen such as acetaminophen with codeine, acetaminophen with hydrocodone and acetaminophen with oxycodone. Given 03/16/2011 2:00 AM CDT 650 mg Given 03/15/2011 8:00 PM CDT 650 mg atorvastatin (aka LIPITOR) tablet 40 mg Given 03/16/2011 8:00 AM CDT 40 mg 40 mg, Oral, DAILY, First dose on Sat03/14/11 at 0800, Until Discontinued Given 03/15/2011 8:00 AM CDT 40 mg Given 03/14/2011 8:00 AM CDT 40 mg baclofen (aka LIORESAL) tablet 40 mg Given 03/16/2011 8:00 AM CDT 40 mg 40 mg, Oral, TID, First dose on Sat03/13/11 at 2315, Until Discontinued Given 03/15/2011 8:00 PM CDT 40 mg Given 03/15/2011 2:00 PM CDT 40 mg cefazolin (aka ANCEF) 2 g in NaCl 0.9 % 100 mL Given 0 03/15/2011 12:40 AM CDT 2 g IV piggyback 2 g, Intravenous, Administer over 30 Minutes, Q8H, First dose on Sat03/14/11 at 0201, For 24 hours, Give x 24 hours, if first dose given pre-op, continue X 2 more doses for total 24h therapy Given 03/14/2011 4:00 PM CDT 2 g Given 03/14/2011 2:01 AM CDT 2 g cefazolin (aka ANCEF) injection 2 g Given 03/13/2011 1:55 PM CDT 2 g 2 g, Intravenous, SDS, Starting on Sat03/13/11 at 1210, For 1 dose, PRE-OP ANTIBIOTIC, Pre-op cefazolin (aka ANCEF) injection 2 g Given 03/13/2011 5:39 PM CDT 2 g 2 g, Intravenous, INTRA-OP, Starting on Sat03/13/11 at 1704, For 1 dose cholecalciferol (aka VITAMIN D3) tablet Given 03/16/20 8:00 AM CDT 1,000 Units TABS 1,000 Units 1,000 Units, Oral, DAILY, First dose on Sat03/14/11 at 0800, Until Discontinued Given 03/15/2011 8:00 AM CDT 1,000 Units Given 03/14/2011 8:00 AM CDT 1,000 Units citalopram (aka ceLEXA) tablet 40 mg Given 03/16/2011 8:00 AM CDT 40 mg 40 mg, Oral, DAILY, First dose on Sat03/14/11 at 0800, Until Discontinued Given 03/15/2011 8:00 AM CDT 40 mg Given 03/14/2011 8:00 AM CDT 40 mg cyclobenzaprine (aka FLEXERIL) tablet 10 mg Given 03/16/2011 8:00 AM CDT 10 mg 10 mg, Oral, BID, First dose on Sat03/13/11 at 2000, Until Discontinued Given 03/15/2011 8:00 PM CDT 10 mg Given 03/15/2011 8:00 AM CDT 10 mg dantrolene (aka DANTRIUM) capsule 25 mg Given 03/16/2011 8:00 AM CDT 25 mg 25 mg, Oral, TID, First dose on Sat03/13/11 at 2315, Until Discontinued Given 03/15/2011 8:00 PM CDT 25 mg Given 03/15/2011 2:00 PM CDT 25 mg enoxaparin injection SOLN 100 mg Given 03/16/2011 8:00 AM CDT 100 mg 100 mg, Subcutaneous, Q12H, First dose (after last modification) on Sat03/14/11 at 0800, Until Discontinued Given 03/15/2011 8:00 PM CDT 100 mg Given 03/15/2011 8:00 AM CDT 100 mg furosemide (aka LASIX) tablet 40 mg Given 03/16/2011 9:31 AM CDT 40 mg 40 mg, Oral, ONCE, On Sat03/16/11 at 0843, For 1 dose HYDROcodone-acetaminophen (aka Given 03/15/2011 5:55 PM CDT 1 Ta blet VICODIN,LORTAB) 5-500 MG tablet 1-2 Tab 1-2 Tablet, Oral, Q4H PRN, Pain, Starting on Sat03/14/11 at 1712, Maximum Daily Acetaminophen dose for patients > 53 k g/day Maximum Daily Acetaminophen dose for patients < 53 k mg/kg/day This product contains 500 mg Acetaminophen per tablet. Given 03/15/2011 4:45 PM CDT 1 Tablet Given 03/15/2011 10:10 AM CDT 2 Tablets HYDROmorphone injectable 0.2-0.6 mg Given 03/14/2011 12:45 PM CDT 0.6 mg 0.2-0.6 mg, Intravenous, Q2H PRN, Pain, Starting on Sat03/13/11 at 1932, Until Sat03/16/11 at 1304 Given 03/14/2011 3:20 AM CDT 0.6 mg Given 03/13/2011 8:23 PM CDT 0.6 mg lactated ringers infusion 1,000 Started 03/14/2011 5:55 AM CDT 1,000 mL 100 mL/hr mL 1,000 mL, Intravenous, at 100 mL/hr, CONTINUOUS, Starting on Sat03/13/11 at 1933, Please discontinue when patient is able to tolerate PO liquids Started 03/13/2011 7:45 PM CDT 1,000 mL 100 mL/hr LORazepam (aka ATIVAN) tablet 1 mg Given 03/16/2011 8:00 AM CDT 1 mg 1 mg, Oral, TID, First dose on Sat03/13/11 at 2000, Until Discontinued Given 03/15/2011 8:00 PM CDT 1 mg Given 03/15/2011 2:00 PM CDT 1 mg magnesium hydroxide (aka MILK OF MAGNESIA) Given 03/15/2011 10:2 0 AM CDT 30 mL oral liquid 30 mL 30 mL, Oral, DAILY PRN, Constipation, Starting on Sat03/13/11 at 1932, Until Sat03/16/11 at 1304, Give if no BM after 48 hours (Do not use in patients on dialysis, use with caution if GFR less than 50) polyethylene glycol (aka MIRALAX) oral powder Given 03/16/20 8:00 AM CDT 17 g 17 g 17 g, Oral, DAILY, First dose on Sat03/14/11 at 0800, Until Discontinued Given 03/15/2011 8:00 AM CDT 17 g Given 03/14/2011 8:00 AM CDT 17 g sennosides-docusate sodium (aka Given 03/13/2011 8:00 PM CDT 1 T ablet SENNA-S,SENNA PLUS) 8.6-50 MG tablet 1 T ab 1 Tablet, Oral, BID, First dose on Sat03/13/11 at 2000, Until Discontinued, as laxative/stimulant, stool-softening agent sennosides-docusate sodium (aka Given 03/16/2011 8:00 AM CDT 2 T ablets SENNA-S,SENNA PLUS) 8.6-50 MG tablet 2 T ab 2 Tablet, Oral, DAILY, First dose (after last modification) on Sat03/14/11 at 0800, Until Discontinued, as laxative/stimulant, stool-softening agent Given 03/15/2011 8:00 AM CDT 2 Tablets Given 03/14/2011 8:00 AM CDT 2 Tablets sennosides-docusate sodium (aka Given 03/15/2011 9:00 PM CDT 3 T ablets SENNA-S,SENNA PLUS) 8.6-50 MG tablet 3 T ab 3 Tablet, Oral, HS, First dose on Sat03/13/11 at 2316, Until Discontinued, as laxative/stimulant, stool-softening agent Given 03/14/2011 9:00 PM CDT 3 Tablets Given 03/14/2011 1:40 AM CDT 3 Tablets sodium phosphate (aka FLEET) enema 1 Lela ma Given 03/15/2011 10:30 AM CDT 1 Enema 1 Enema, Rectal, ONCE PRN, Constipation, Starting on Sat03/13/11 at 1932, For 1 dose, Do not use if GFR less than 50 trimethoprim (aka TRIMPEX) tablet 100 mg Given 03/16/2011 8:00 AM CDT 100 mg 100 mg, Oral, BID, First dose on Sat03/13/11 at 2315 Given 03/15/2011 8:00 PM CDT 100 mg Given 03/15/2011 8:00 AM CDT 100 mg warfarin (aka COUMADIN) tablet 10 mg Given 03/15/2011 4:00 PM CDT 10 mg 10 mg, Oral, WARFARIN - DAILY, First dose (after last modification) on Sat03/15/11 at 1600, Until Discontinued, Hazardous waste, dispose of in black box. Vitamin K antagonizes the effects of warfarin. Maintain consistent intake of vitamin K in the diet. warfarin (aka COUMADIN) tablet 7.5 mg Given 03/14/2011 4:00 PM CDT 7.5 mg 7.5 mg, Oral, WARFARIN - DAILY, First dose on Sat03/13/11 at 2315, Until Discontinued, Hazardous waste, dispose of in black box. Vitamin K antagonizes the effects of warfarin. Maintain consistent intake of vitamin K in the diet. Given 03/14/2011 1:40 AM CDT 7.5 mg documented in this encounter Active and Recently Administered Medications Times are shown in CDT. Scheduled Medication Order 03/14/2011 03/15/2011 03/16/2011 acetaminophen (aka TYLENOL) tablet 650 mg 0200 (Given - Provider: Awilda Knox RN)0800 (Given - Provider: Bayron Bernstein RN)1400 (Given - Provider: Bayron Bernstein RN)1999 (Given - Provider: Corie Welsh RN) 0225 (Given - Provider: Awilda Knox RN)0800 [...] 0800 (Given - Provider: Edith Pope RN) 40 mg, Oral, DAILY, First dose on Sat03/14/11 at 0800, Until Disc ontinued baclofen (aka LIORESAL) tablet 40 mg (CANCELED) 0140 ( Given - Provider: Awilda Knox RN)0800 (Given - [...] yback (COMPLETED) 0201 (Given - Provider: Awilda Knox, RN)1600 (Given - Provider: Corie Welsh, RN) 0040 (Given - Provider: Awilda Knox, RN) IV, Q8H, 3 doses, First dose on Sat at 0201, Last dose on Sat03/15/11 at 0000 cholecalciferol (aka VITAMIN D3) tablet TABS 1,000 Uni ts (CANCELED) 799 (Given - Provider: Bayron Bernstein RN) 08 (Given - Provider: Bayron Bernstein RN) 0800 (Given - Provider: Edith Pope, VALERIE) 1,000 [...] Welsh, VALERIE) 08 (Given - Provider: Bayron Bernstein RN)1999 (Given - Provider: Corie Welsh, VALERIE) 08 (Given - Provider: Edith Pope, VALERIE) 10 mg, Oral, BID, First dose on Sat03/13/11 at 1999, Until Discon tinued dantrolene (aka DANTRIUM) capsule 25 mg (CANCELED) 014 0 (Given - Provider: Awilda Knox RN)0800 (Given - Provider: Bayron Bernstein RN)1400 (Given - Provider: Bayron Bernstein RN)1999 (Given - Provider: Corie Welsh, VALERIE) 0800 (Given - Provider: Bayron Bernstein RN)1400 (Given [...] Welsh, VALERIE) 0800 (Given - Provider: Bayron Bernstein, RN )1400 (Given - Provider: Bayron Bernstein, VALERIE)1999 (Given - Provider: Corie Welsh, VALERIE) 0800 [...] 0800 (Given - Provider: Bayron Bernstein RN) 08 (Given - Provider: Bayron Bernstein RN) 0800 (Given - Provider: Edith Pope, AVLERIE) 2 Tab, Oral, DAILY, First dose on Sat03/14/11 at 0800, Until Disc ontinued sennosides-docusate sodium (aka SENNA-S,SENNA PLUS) 8. 6-50 MG tablet 3 Tab 0140 (Given - Provider: Awilda Knox RN)2099 (Given - Provider: Corie Welsh, VALERIE) 2099 (Given - Provider: Corie Welsh RN) 3 Tab, Oral, HS, First dose on Sat03/13/11 at 2316, Until Discont inued trimethoprim (aka TRIMPEX) tablet 100 mg (CANCELED) 01 40 (Given - Provider: Awilda Knox RN)08 (Given - Provider: Bayron Bernstein RN)1999 (Given - Provider: Corie Welsh RN) 08 (Given - Provider: Bayron Bernstein RN )1999 (Given - Provider: Corie Welsh, VALERIE) 08 (Given - Provider: Edith Pope, VALERIE) 100 mg, Oral, BID, First dose on Sat03/13/11 at 2315, Until Disco ntinued warfarin (aka COUMADIN) tablet 10 mg (CANCELED) 1600 (Given - Provider: Corie Welsh RN) 10 mg, Oral, WARFARIN - 1600, First dose on Sat03/15/11 at 1600, Until Discontinued warfarin (aka COUMADIN) tablet 7.5 mg (CANCELED) 0140 (Given - Provider: Awilda Knox RN)1600 (Given - Provider: Corie Welsh RN) 7.5 mg, Oral, WARFARIN - 1600, First dos e on Sat03/13/11 at 2315, Until Discontinued Continuous Medication Order 03/14/2011 03/15/2011 03/16/2011 lactated ringers infusion 1,000 mL (CANCELED) 0555 (St arted - Provider: Awilda Knox, RN)1059 (Infused - Provider: Bayron Bernstein, RN) 1,000 mL, at 100 mL/hr, IV, CONTINUOUS, Starting Sat03/13/11 at 1933, Until Discontinued PRN Medication Order 03/14/2011 03/15/2011 03/16/2011 HYDROcodone-acetaminophen (aka VICODIN,L ORTAB) 5-500 MG tablet 1-2 Tab (CANCELED) 2225 (Given - Provider: Corie Welsh, RN) 1010 (G iven - Provider: Bayron Bernstein RN)1645 (Given - Provider: Corie Welsh, VALERIE)1755 (Given - Provider: Cristine Workman RN) 1-2 [...] 30 mL 1020 (Given - Provider: Bayron Bernstein, RN) 30 mL, Oral, DAILY PRN, Starting 03/13 at 1932, Until Discontinued, Constipation sodium phosphate (aka FLEET) enema 1 Enema (COMPLETED) 1030 (Given - Provider: Bayron Bernstein, RN) 1 Enema, Rectal, ONCE PRN, 1 dose, Start ing Sat03/13/11 at 1932, Until Discontinued, Constipation documented in this encounter
--- OUTSIDE RECORDS SUMMARY | 2022-06-20 02:31 | XMS_ITS | Encounter Summary ---
:1945 [facility] Address [address], [place] [address] Care Team Providers Name Role Phone Unavailable Primary Care Provider Unavailable Encounter Details Date Type Department Care Team Description 03/06/2011 Orders Only [facility]ty [facility] [address], [place] rosamaria Jones MD [facility] [address] [place] [address] [place] [address] [phone] Social History Tobacco Use Types Packs/Day Years [...]
--- OUTSIDE RECORDS SUMMARY | 2022-06-20 02:31 | XMS_ITS | Encounter Summary ---
:1945 Author Organization [facility] Address [address] [place] [address] Care Team Providers Name Role Phone Unavailable Primary Care Provider Unavailable Encounter Details Date Type Department Care Team Description 02/08/[address] [facility] Specialty Scr eening for nephropathy Center MRI (Primary Dx) [address] [place] [address] Social History Tobacco Use Types [...] Associated Diagnosis Comme nts CREATININE/GFR, WB Routine 02/08/2011 3:01 PM Screening for Re sults for this POC CDT nephropathy procedure are i n the results section. MR THORACIC SPINE Routine 02/08/2011 10:57 AM Res ults for this W/WO IV CONT CDT procedure are i n the results section. documented in this encounter Results HS Radiology ONLY - CREATININE/GFR, WB POC (02/08/2011 3:01 PM CDT) P athologist Signature Creat Whole 1.0 0.66 - [facility] Blood 1.25 mg/dl GFR, Estimated >60.0 >60 [facility] ml/min/1.7 3m2 GFR, Est., If >60.0 >60 [facility] Black ml/min/1.7 3m2 Specimen Anatomical Collection Method Collection Time Receive d Time (Source) Location / / Volume Laterality 02/08/2011 3:01 PM 1 3:52 CDT PM CDT Birgit T Geronimo [facility]_1 Performing Organization Address City/State/ZIP Code Phon e Number [facility] [phone] [address] MR THORACIC SPINE WITH/WITHOUT CONTRAST (02/08/2011 10:57 AM CDT) Anatomical Region Laterality Modality Spine, T-Spine, L-Spine, C-Spine, Skeletal Magnetic Resonance Specimen (Source) Anatomical Collection Method Collection Time Re ceived Time Location / / Volume Laterality 02/08/2011 10:57 AM CDT Narrative 02/10/2011 2:38 PM CDT [facility] THORACIC SPINE MRI ? 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 TECHNIQUE: Thoracic spine MRI without an d with contrast. 20 mL of Magnevist. COMPARISON: 04/05/2010 and 11/06/2010. FINDINGS: Stable postoperative changes involving t he intraspinal contents. Atrophy of the lower cervical and thoracic cord to the level to the T2-T3 interspace. Lack of visualization of the cord from T2-T3 to the mid T5 level. There may be severely atretic cord adhesed to the right lateral margin of the thecal sac from T2 to T5. No evidence of residual or recurrent tumor. In addition, there is atrophy of the thorac ic cord from T5 to the T10-T11 interspace level. The distal thoracic co rd is relatively normal size with some increased T2 signal within the cord . The appearance of the cord in this region is unchanged compared to 03/12. No evidence of a syrinx. T3-T6 laminectomies. Postoperative fluid collections in the posterior paraspinal region which have decreased i n size compared to the previous exams. Postradiation changes involving t he marrow within the lower cervical and upper thoracic vertebra. CONCLUSION: 1. No evidence of residual or recurrent tumor. 2. Stable postoperative changes involvin g the intraspinal contents with atrophy of the lower cervical as well as a significant portion of the thoracic cord. 3. There is some mild persistent T2 sign al with ??relatively normal size of the lower thoracic cord. The cord in thi s region is unchanged in size and signal characteristics compared to 2009 and 11/06/2010. No evidence of syrinx. 4. Postoperative changes related to T3-T 6 laminectomies with decrease in the postoperative fluid collections in t he posterior paraspinal soft tissues in the upper thoracic region. 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 TECHNIQUE: Thoracic spine MRI without an d with contrast. 20 mL of Magnevist. COMPARISON: 04/05/2010 and 11/06/2010. FINDINGS: Stable postoperative changes involving t he intraspinal contents. Atrophy of the lower cervical and thoracic cord to the level to the T2-T3 interspace. Lack of visualization of the cord from T2-T3 to the mid T5 level. There may be severely atretic cord adhesed to the right lateral margin of the thecal sac from T2 to T5. No evidence of residual or recurrent tumor. In addition, there is atrophy of the thorac ic cord from T5 to the T10-T11 interspace level. The distal thoracic co rd is relatively normal size with some increased T2 signal within the cord . The appearance of the cord in this region is unchanged compared to 03/12. No evidence of a syrinx. T3-T6 laminectomies. Postoperative fluid collections in the posterior paraspinal region which have decreased i n size compared to the previous exams. Postradiation changes involving t he marrow within the lower cervical and upper thoracic vertebra. CONCLUSION: 1. No evidence of residual or recurrent tumor. 2. Stable postoperative changes involvin g the intraspinal contents with atrophy of the lower cervical as well as a significant portion of the thoracic cord. 3. There is some mild persistent T2 sign al with relatively normal size of the lower thoracic cord. The cord in thi s region is unchanged in size and signal characteristics compared to 2009 and 11/06/2010. No evidence of syrinx. 4. Postoperative changes related to T3-T 6 laminectomies with decrease in the postoperative fluid collections in t he posterior paraspinal soft tissues in the upper thoracic region. Garry Neff MD RAD MRI documented in this encounter Visit Diagnoses Diagnosis Screening for nephropathy - Primary documented in this encounter
--- OUTSIDE RECORDS SUMMARY | 2022-06-20 02:31 | XMS_ITS | Encounter Summary ---
:1945 Author Organization [facility] Address [address], [place] [address] Care Team Providers Name Role Phone Unavailable Primary Care Provider Unavailable Reason for Referral Specialty Diagnoses / Procedures Referred By Contact Refer red To Contact Garry Neff MD [address] [place] [address] Referral ID Status Reason Start Date Expiration Date Visits Requ ested Visits Authorized Scheduling Instructions If an appointment with [facility] ys[facility] Medicine and Rehabilitation was advised and you have not been contacted to schedule that appointment within 3 business days, please call for assistance. MAKER Reason for Visit Reason Onset Date Comments QUESTIONS, GENERAL 01/04/2011 Encounter Details Date Type Department Care Team Description 01/04/2011 Telephone Specialty Center [address] Garry Neff, QUESTIONS, GENERAL NeuroSurgery [facility]. [address] [place] [address] [place] [address] [phone] (Wo rk) Social History Tobacco Use Types Packs/Day Years Used Date Smoking Tobacco: Never Alcohol Use Standard Drinks/Week Comments No 0 (1 standard drink = 0.6 oz pure alcoho l) Sex Assigned at Date Recorded Male 08/06/2021 5:59 PM CDT documented as of this encounter Nursing Notes Selene Johnson RN - 01/05/2011 11:23 AM CST Returned call to patient/ and he stated that they were wondering about getting seen with PMR as he is having increase in spasticity in his legs. Reviewed with care team and order placed. Did explain to patient that PMR would contact him,he verbalized understanding. Selene Johnson, VALERIE 01/05/2011, 11:22 AM MAKER Sweetie Sterling - 01/05/2011 10:47 AM CST Patient's left message regarding referral to PM&R. MAKER Giselle Vila - 01/04/2011 5:00 PM CST Pt's left a message on our voicemail requesting a call back from Dr. Neff's care team. Pt's stated she has some questions. Please call pt's back on home phone with information. Thanks. Giselle Vila 01/04/2011, 5:00 PM MAKER documented in this encounter Plan of Treatment Scheduled Referrals Name Type Priority Associated Diagnoses Order S yash PHYSICAL MEDICINE & REHAB Referral Routine Or dered: 01/05/2011 CONSULT-ADULT [[id number]] documented as of this encounter Visit Diagnoses Not on filedocumented in this encounter
--- OUTSIDE RECORDS SUMMARY | 2022-06-20 02:31 | XMS_ITS | Encounter Summary ---
:1945 Author Organization Formerly [facility] Address [address], [place] [address] Care Team Providers Name Role Phone Unavailable Primary Care Provider Unavailable Reason for Visit Reason Comments CONSULT bilateral knee pain/fx Encounter Details Date Type Department Care Team Description 02/27/2011 Office Visit [facility] Satish Bowling Fracture of femoral condyle, right, closed (Primary Dx); Orthopedics MD Bryn Tibial plateau fracture; [address] [address] [address] Fracture of femoral condyle, left, [place] [address] [place], [place] [phone] Social History Tobacco Use Types Packs/Day Years [...] - Inhaled Oxygen Concentration - - Weight 106.1 kg (233 lb 12.8 oz) 02/27/2011 3:20 PM CDT Height - - Body Mass Index 33.55 05/26/2010 8:00 AM CDT documented in this encounter Patient Instructions Patient InstructionsKristine Harrison LPN - 02/27/2011 10:48 AM CDT Important information before your surgery Orthopedic surgery ??? Do not eat or drink anything after midnight the night before your surgery. We may have to cancel your surgery if you have food or liquid in your stomach. ??? Within 30 days before your surgery, you must have a pre-operative physical exam by your doctor. Your primary care doctor must give you approval to have the surgery. ??? If your physical condition changes, such as you develop a cold or fever, please contact your surgeon???s office at the number listed at the end of this sheet. ??? Please read and follow the instructions about washing your skin before surgery. This will reduce your chance of infection from surgery. ??? Please do not use any type of hair products before your surgery. ??? You will need someone to drive you home and stay with you for 24 hours after surgery. ??? You should not drive for 24 hours after surgery. ??? If you are sent home from surgery on prescribed pain medications, you must not drive while you are taking these medications. Your doctor will give you specific information about these Medications. Medications ??? Stop taking all herbal medications two weeks before your surgery. We will contact you before your surgery If your surgery will be at [facility]: A nurse will contact you between 11 am - 6 pm the day before your surgery. The nurse will review instructions, tell you when to arrive for surgery, and answer your questions. Please call [phone] if you will not be home during this time or if it is more convenient for you to call Us. Orthopedics Department Specific Instructions ??? Do not take aspirin or blood thinners for two weeks before surgery. ??? Do not smoke or drink alcohol the two days before surgery. ??? Do not take any NSAIDs (medications such as ibuprofen or naproxen) for 2-5 days before surgery. ??? Consult with your primary care doctor about all your medications or if you have a rash, skin changes or conditions such as a cold or fever. documented in this encounter Progress Notes Satish Bowling - 03/20/2011 10:10 AM CDT DATE OF SERVICE: 02/27/2011 SUBJECTIVE: The patient has a history of paraplegia for 4 years. He is wheelchair bound and has no sensation in his lower extremities. His therapist had noted some swelling in his knees and he's had alot of spasticity lately, as much as ever. [...] that he may have injured his knees. OBJECTIVE General: He is alert and oriented, has a normal mood and affect, is in no acute distress. Heart: Regular rate and rhythm. Lungs: Respirations are regular and unlabored. HEENT: Eyes are anicteric and reactive. Extremities: He is seated in the cart and his legs are under no volitional control of his. He does have swelling about both his knees and a little that edema in his lower legs, but I don't detect any adenopathy or masses. Skin of the upper extremities, head and neck are within normal limits. Again, he is insensate in his lower extremities, but appears to have normal sensation light touch and normal motion and strength in his upper extremities. I reviewed his x-rays done today and his prior CAT scans. He has a medial tibial plateau fracture that's slightly displaced and a lateral femoral condyle fracture that is also a bit displaced. This onthe left side. On the right side, he has a large lateral condyle fracture which is somewhat comminuted. On both knees, his medial condyles seem to be intact. IMPRESSION 1. Left and right lateral condyle fractures. 2. Left tibial plateau fracture. I observed that his fractures do not seem to be healed. There is some sense on the right knee on x-rays and CAT scan that there's been some compression of the cancellous bone and certainly a good fracture gap on all fracture sites. I have recommended to the patient that he have these fixed. I realizethat he is not an ambulator, but my concern is that his leg will continue to deteriorate in a Charcot-joint type of way if they are not supported. This certainly could happen any way, but at this point, still fairly discrete fractures. I think fracture alignment need not be perfect for his functional demands, but its hard for him to maintain flexibility in his lower extremities and go through a full course of stretching if his knees are fragile and unstable. I wonder also if this process is contributing to his spasticity, so will plan to do internal fixation of the tibial plateau and femoral condyles. I expect we'll allow him to do some gentle range of motion of the knee, but no vigorous stretching of the knees that would involve a varus or valgus load. He is aware of the risk of infection and that lead to amputation. Patient has consented to the surgery. Satish Bowling MD MANAGER DRIVE:rocio Dictated: 02/27/2011 12:24:18 Transcribed: 02/28/2011 11:46:20 Job: [id number] Doc: [id number] cc: Garry Neff MD, Referring Provider Satish Bowling - 02/28/2011 12:15 PM CDT documented in this encounter Plan of Treatment Not on filedocumented as of this encounter Visit Diagnoses Diagnosis Fracture of femoral condyle, right, clos ed (HRC) - Primary Closed fracture of femoral condyle Tibial plateau fracture Closed fracture of upper end of tibia Fracture of femoral condyle, left, close d (HRC) Closed fracture of femoral condyle documented in this encounter
--- OUTSIDE RECORDS SUMMARY | 2022-06-20 02:31 | XMS_ITS | Encounter Summary ---
:1945 Author Organization [facility] Address [address] [place] [address] Care Team Providers Name Role Phone Unavailable Primary Care Provider Unavailable Encounter Details Date Type Department Care Team Description 02/12/2011 Orders Only External to No Primary/Referring, Phy Social History Tobacco Use Types Packs/Day Years Used Date Smoking Tobacco: Never Alcohol Use Standard Drinks/Week Comments No 0 (1 standard drink = 0.6 oz pure alcoho l) Sex Assigned at Date Recorded Male 08/06/2021 5:59 PM CDT documented as of this encounter Procedure Notes External, Provider - 02/12/2011 12:00 AM CDTAssociated Order(s): SCANNED LAB documented in this encounter Plan of Treatment Not on filedocumented as of this encounter Procedures Procedure Name Priority Date/Time Associated Diagnosis Comme nts SCANNED LAB 02/12/2011 12:00 AM Results for this CDT procedure are i n the results section . documented in this encounter Results SCANNED LAB (02/12/2011 12:00 AM CDT) Specimen (Source) Anatomical Location Collection Method / Collectio n Time Received Time / Laterality Volume 02/12/2011 Narrative This result has an attachment that is no t available. Transcriptions External, Provider - 02/12/2011 12:00 AM CDT Phy No Primary/Referring LAB_1 documented in this encounter Visit Diagnoses Not on filedocumented in this encounter
--- OUTSIDE RECORDS SUMMARY | 2022-06-20 02:31 | XMS_ITS | Encounter Summary ---
:1945 [facility] Address [address], [place] [address] Care Team Providers Name Role Phone Unavailable Primary Care Provider Unavailable Encounter Details Date Type Department Care Team Description 02/27/2011 Imaging [facility] [address] [place] [address] Social History Tobacco Use Types Packs/Day Years [...] Associated Diagnosis Comme nts XR KNEE RT Routine 02/27/2011 10:15 AM Results for this [...] Dr. Satish han at time of dictation. Procedure Note Kai [...] Satish han at time of dictation. Satish Bowling MD RAD GD XR KNEE AP/LAT/SUNRISE RIGHT (02/27/2011 10:15 AM CDT) Anatomical Region Laterality [...] Dr. Satish han at time of dictation. Procedure Note Kai Fajardo Evelyn II - 02/27/2011Formatting o f this note might be different [...] Satish han at time of dictation. Satish JIMENEZ documented in this encounter Visit Diagnoses Not on filedocumented in this encounter
--- OUTSIDE RECORDS SUMMARY | 2022-06-20 02:31 | XMS_ITS | Encounter Summary ---
:1945 Author Organization [employer] Address [address], [place] [address] Care Team Providers Name Role Phone Unavailable Primary Care Provider Unavailable Reason for Visit Reason Comments Consult, New Patient Spasticity-had baclofen pump in and recently removed by - and patient r equest a referral to see PMR for change in status Encounter Details Date Type Department Care Team Description 02/28/2011 [facility] Para plegia (Primary Dx); [address] Physical Kirsten Clemente MD Femur fracture; [address] Tibia fracture; [place] [address] [place], [place] Neurogenic bladder; [phone] Spasticity; [phone] Neurogenic demetra l; (Work) Back pain; Edema Social History Tobacco Use Types Packs/Day Years Used Date Smoking Tobacco: Never Alcohol Use Standard Drinks/Week Comments No 0 (1 standard drink = 0.6 oz pure alcoho l) Sex Assigned at Date Recorded Male 08/06/2021 5:59 PM CDT documented as of this encounter Last Filed Vital Signs Vital Sign Reading Time Taken Comments Blood Pressure 84/56 02/28/2011 8:51 AM CDT Pulse 84 02/28/2011 8:51 AM CDT Temperature - - Respiratory Rate - - Oxygen Saturation - - Inhaled Oxygen Concentration - - Weight 105.7 kg (233 lb) 02/28/2011 8:51 AM CDT Height 177.8 cm (5' 10) 02/28/2011 8:51 AM CDT Body Mass Index 33.43 02/28/2011 8:51 AM CDT documented in this encounter Progress Notes May Randle - 02/28/2011 2:14 PM CDT Mr. contreras he is accompanied to clinic today by his . He seen today for the first time and I am in asked to evaluate him by Dr. Gurinder Neff for issues related to spasticity. He has a history of thoracic ependymoma for a number of years and initially had his rehabilitation at [facility]. At that point he was still ambulatory and was discharged with a Breezy manual wheelchair. He did not need customized seating because he essentially use a wheelchair for transportation. Overthe ensuing years he has become progressively less mobile and now is not have function of his lower extremities. When he needed a new chair he simply ordered another breezy and did not really have evaluation of his positioning. He also has a power hoveraround which he uses out of the home but in the home essentially is in the breezy all Day other than some time spent in a recliner in the evening . He did at one point have an intrathecal baclofen pump placed through the [facility]. Last year he developed meningitis and did have the catheter removed. He is now noting spasms particularly in his trunk and less so in his legs. He has increased his baclofen to 120 mg daily and does not feel it is helping with the abdominal spasms. Of note however is that he has recently been diagnosed with bilateral femoral condyle fractures as well as a left tibia fracture and is scheduled for surgery in early March. We discussed that this type of injury is something that would or find ongoing noxious input and would indeed likely increase his spasms. He also has been able to do so fairly aggressive stretching until these fractures were diagnosed. He had been doing regular prone lying and had been using a Nu step neither of which he is doing at this point. This lack of range may also be contributing to his spasticity. He is not ever tried entry him or tizanadine. He did have Valium at one point following a procedure. He notes ongoing left lateral trunk pain which is below his area of sensation. He is on cyclobenzaprine 10 mg twice daily for this. He does not take any other analgesics. His bladder is drained via catheter indwelling. He has seen a urologist in the past and follows withhis primary care physician and they feel he has had a fairly recent CT of the abdomen which looks athis kidneys and bladder. He has had no recent infections. [facility] is accomplished every other day using mini enema as well as senna s. He has had no recent areas of skin pressure. Following hospitalization last year he did have the beginning of a pressure area however it never opened, he kept him off of it, and and subsequently healed. Of note x-rays have shown the femoral condyle fractures and tibia fracture. They have also brought along an MRI of the pelvis done in December [...] treatment by physical therapy for his trochanteritis. He generally sleeps and eats well. He has gained weight since he first obtains his wheelchairs. It is noted that when he is in the hoveround his legs position in significant abduction. They do this less in his wheelchair at home. They describe some type of cushion in the wheelchair however it is not certain that there is actually a firm seat under the cushion. Definitely there is only a sling back [facility] wheelchair and I suspect he is being very poorly supported in the chair which may increase both his back pain as well as his spasticity. He has a history of mass a [...] he had been using intermittently but now is not using because of the fractures. We did discuss it this is an excellent way to provide stretch and decreased spasms once the fracture issues have been resolved. He transfers via sliding board and does need the assistance of his . She also helps him in the shower. He has a roll in shower and a bench that he transfers to. He has recently had a colonoscopy and endoscopy apparently for anemia. His primary care physician isDr. Loretta GOSS and [facility] in [facility]. Past Medical History Diagnosis Date ??? Ependymoma 1999 S/p resection by Dr. Glasgow at [place] in 05/2000. However resection was incomplete due [...] 1 at baseline. Lives with his in [place]. Family History Problem Relation Age of Onset ??? Cancer, Colon Mother ??? Cancer, Other Brother brother with throat cancer ??? Cancer, Breast Sister Outpatient prescriptions prior to encounter Medication Sig Dispense Refill ??? atorvastatin (LIPITOR) 40 MG tablet Take 1 Tab by mouth daily. ??? cholecalciferol (AKA VITAMIN D3) 1000 UNIT tablet Take 1,000 Units by mouth daily. ??? citalopram (AKA CELEXA) 40 MG tablet Take 40 mg by mouth daily. ??? docusate sodium (AKA ENEMEEZ) 283 MG enema Insert 5 mL rectally daily as needed. PT. USES ENEMA EVERY OTHER DAY. 15 Each 0 ??? LORazepam (AKA ATIVAN) 0.5 MG tablet Take 2 Tabs by mouth three times a day. ??? TRIMETHOPRIM OR Take 100 mg by mouth daily. ??? warfarin (AKA COUMADIN) 5 MG tablet Take 1 Tab by mouth daily. Adjust dose based on INR result as directed. 30 Tab 11 ??? baclofen (AKA LIORESAL) 10 MG tablet Take 1 Tab by mouth three times a day. 90 Tab 0 ??? cyclobenzaprine (AKA FLEXERIL) 10 MG tablet Take 1 Tab by mouth three times a day as needed for Muscle Spasms. 60 Tab 0 ??? Polyethylene Glycol 3350 (MIRALAX OR) ??? Potassium (POTASSIMIN OR) ? ? senna (AKA SENOKOT) 8.6 MG tablet Take 2 Tabs by mouth daily. USES 3 TABS IN THE AM & 2 TABSAT HS EVERY OTHER DAY. 30 Tab 0 Additional review of systems: He feels his mood is stable in addition to the lorazepam he is on citalopram. He does note he tends to get drowsy and feels it is likely due to the combination of all of his medications. It is noted that he actually had his intrathecal baclofen pump from December of 2006 to summer On examination: Examination reveals an older male in no acute distress. He is alert and oriented x4.He does sometimes look to his to provide historical information about his medical situation. Hehas excellent upper extremity range of motion and strength. There is no evidence of carpal tunnel either to exam more by symptomatology. He has a sensory demarcations above the nipple level and does not have sensation below this. Skin isintact were observed. He does have some lower extremity edema as well as questionable fluid at the knees. There is no warmth. Tone is increased in the lower extremities Rebeca 2+. There several beatsof clonus at both ankles. He is positioned in a power wheelchair with hips in significant abduction.Deep tendon reflexes are brisk. 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 He will continue on the baclofen 3) I have recommended not trying to wean Ativan until after his surgery and we discussed some strategies for weaning once he does attempt this 4) we reviewed away he can do some supine hip stretching without involving the knees as long as he has a leg in a knee immobilizer which was obtained through orthopedics 5) with discuss some way she can use his Nu step without involving the lower extremities to give himsome aerobic exercise preop. 6) I suspect he may need them significant changes in his seating in his manual chair including a firm back and seat. I question whether it may be too narrow increasing his tendency to greater trochanter bursaitis. We will evaluate his positioning in the chair after his surgery in early March and I have asked him to be sure they bring the manual wheelchair when he comes for surgery. 7) we did review that the combination of his medications may in fact be making him more drowsy. We will need to wait until sometime after his surgery to see what his baseline level of spasticity is andwhat medications he really needs. 8) continue his regular bowel program 9) he will be scheduled back in three months however I anticipate seeing him when he is hospitalized 10) they have requested a copy of this summary be sent to their primary care physician Dr. Loretta Heard in [place] at the [facility]. 60 of today's 75 minutes spent in education, counseling, and coordination of care. documented in this encounter Plan of Treatment Not on filedocumented as of this encounter Visit Diagnoses Diagnosis Paraplegia (HRC) - Primary Paraplegia Femur fracture (HRC) Closed fracture of unspecified part of f emur Tibia fracture Closed fracture of unspecified part of t ibia Neurogenic bladder Neurogenic bladder, NOS Spasticity Abnormal involuntary movements Neurogenic bowel Back pain Backache, unspecified Edema documented in this encounter
--- OUTSIDE RECORDS SUMMARY | 2022-06-20 02:31 | XMS_ITS | Encounter Summary ---
:1945 Author Organization [facility] Address [address] [address] Care Team Providers Name Role Phone Unavailable Primary Care Provider Unavailable Encounter Details Date Type Department Care Team Description 03/13/2011 Consent for [facility] RH INFORM ED CONSENT Procedure/Treatment RECORD Social History Tobacco Use Types Packs/Day Years Used Date Smoking Tobacco: Never Alcohol Use Standard Drinks/Week Comments No 0 (1 standard drink = 0.6 oz pure alcoho l) Sex Assigned at Date Recorded Male 08/06/2021 5:59 PM CDT documented as of this encounter Progress Notes Interface, In Chrtscr And Scan - 03/17/2011 3:45 AM CDT documented in this encounter Plan of Treatment Not on filedocumented as of this encounter Visit Diagnoses Not on filedocumented in this encounter
--- OUTSIDE RECORDS SUMMARY | 2022-06-20 02:31 | XMS_ITS | Encounter Summary ---
:1945 Author [facility] Address [address] [place] [address] Care Team Providers Name Role Phone Unavailable Primary Care Provider Unavailable Encounter Details Date Type Department Care Team Description 03/13/2011 Imaging [facility] [address] [place] [id number] Social History Tobacco Use Types Packs/Day Years [...] Diagnosis Comme nts XR C-ARM 30-59 Routine 03/13/2011 5:00 PM Results for this MINUTES CDT procedure are i n the results section. documented in this encounter Results XR C-ARM 30-59 MIN (03/13/2011 5:00 PM [...]
--- OUTSIDE RECORDS SUMMARY | 2022-06-20 02:32 | XMS_ITS | Encounter Summary ---
:1945 Author Organization [facility] Address [address], [place] [address] Care Team Providers Name Role Phone Unavailable Primary Care Provider Unavailable Encounter Details Date Type Department Care Team Description 07/11/2010 Correspondence External to HP LETTER Social History Tobacco Use Types Packs/Day Years Used Date Smoking Tobacco: Never Alcohol Use Standard Drinks/Week Comments No 0 (1 standard drink = 0.6 oz pure alcoho l) Sex Assigned at Date Recorded Male 08/06/2021 5:59 PM CDT documented as of this encounter Progress Notes Interface, In Chrtscr And Scan - 08/07/2010 4:16 PM CDT documented in this encounter Plan of Treatment Not on filedocumented as of this encounter Visit Diagnoses Not on filedocumented in this encounter
--- OUTSIDE RECORDS SUMMARY | 2022-06-20 02:32 | XMS_ITS | Encounter Summary ---
:1945 Author Organization [facility] Address [address] [address] Care Team Providers Name Role Phone Unavailable Primary Care Provider Unavailable Encounter Details Date Type Department Care Team Description 06/07/2010 Emergency Room External to External, Provid er ADMIT [place] [address] Social History Tobacco Use Types Packs/Day Years Used Date Smoking Tobacco: Never Alcohol Use Standard Drinks/Week Comments No 0 (1 standard drink = 0.6 oz pure alcoho l) Sex Assigned at Date Recorded Male 08/06/2021 5:59 PM CDT documented as of this encounter Progress Notes Interface, In Chrtscr And Scan - 06/23/2010 9:11 AM CDT documented in this encounter Plan of Treatment Not on filedocumented as of this encounter Visit Diagnoses Not on filedocumented in this encounter
--- OUTSIDE RECORDS SUMMARY | 2022-06-20 02:32 | XMS_ITS | Encounter Summary ---
:1945 Author Organization [email or web address] Address [address] [address] Care Team Providers Name Role Phone Unavailable Primary Care Provider Unavailable Reason for Visit Reason Onset Date Comments FOLLOW-UP,[facility] 06/02/2010 Encounter Details Date Type Department Care Team Description 06/02/2010 Telephone RH S10 Jean-Paul Aviles FOLLOW-UP,[address] [address] [place] [address] [phone] (Wo rk) Social History Tobacco Use Types Packs/Day Years Used Date Smoking Tobacco: Never Alcohol Use Standard Drinks/Week Comments No 0 (1 standard drink = 0.6 oz pure alcoho l) Sex Assigned at Date Recorded Male 08/06/2021 5:59 PM CDT documented as of this encounter Nursing Notes Jean-Paul Aviles - 06/02/2010 1:57 PM CDT Callback to pt. Spoke with pt's Heather. Pt is doing well according to her and they have a goodunderstanding of their d/c instructions. No questions nor any concerns at this time. documented in this encounter Plan of Treatment Not on filedocumented as of this encounter Visit Diagnoses Not on filedocumented in this encounter
--- OUTSIDE RECORDS SUMMARY | 2022-06-20 02:32 | XMS_ITS | Encounter Summary ---
:1945 Author Organization [email or web address] Address [address] [address] Care Team Providers Name Role Phone Unavailable Primary Care Provider Unavailable Reason for Visit Reason Onset Date Comments QUESTIONS, GENERAL 07/18/2010 Encounter Details Date Type Department Care Team Description 07/18/2010 Telephone Specialty Center [address], GENERAL Physical Medicine MD Martha [address] [place] [address] [place] [address] [phone] (Wo rk) Social History Tobacco Use Types Packs/Day Years Used Date Smoking Tobacco: Never Alcohol Use Standard Drinks/Week Comments No 0 (1 standard drink = 0.6 oz pure alcoho l) Sex Assigned at Date Recorded Male 08/06/2021 5:59 PM CDT documented as of this encounter Nursing Notes Martha Thomas - 07/18/2010 11:53 AM CDT He needs to be scheduled with another provider. Thank you. Martha South MD Lin Diaz - 07/18/2010 10:11 AM CDT Patient Heather is calling to schedule patient an appointment with Dr Flores, please advise. documented in this encounter Plan of Treatment Not on filedocumented as of this encounter Visit Diagnoses Not on filedocumented in this encounter
--- OUTSIDE RECORDS SUMMARY | 2022-06-20 02:32 | XMS_ITS | Encounter Summary ---
:1945 Author Organization [facility] Address [address] [place] [address] Care Team Providers Name Role Phone Unavailable Primary Care Provider Unavailable Encounter Details Date Type Department Care Team Description 08/10/2010 Orders Only External to No Primary/Referring, Phy Social History Tobacco Use Types Packs/Day Years Used Date Smoking Tobacco: Never Alcohol Use Standard Drinks/Week Comments No 0 (1 standard drink = 0.6 oz pure alcoho l) Sex Assigned at Date Recorded Male 08/06/2021 5:59 PM CDT documented as of this encounter Procedure Notes [facility], PROVIDER - 08/10/2010 12:00 AM CDTAssociated Order(s): OUTSIDE IMAGING documented in this encounter Plan of Treatment Not on filedocumented as of this encounter Procedures Procedure Name Priority Date/Time Associated Diagnosis Comme nts OUTSIDE IMAGING 08/10/2010 12:00 AM Resul ts for this CDT procedure are i n the results section. documented in this encounter Results OUTSIDE IMAGING (08/10/2010 12:00 AM CDT) Anatomical Region Laterality Modality Other Specimen (Source) Anatomical Location Collection Method / Collectio n Time Received Time / Laterality Volume 08/10/2010 Narrative This result has an attachment that is no t available. Transcriptions [facility], PROVIDER - 08/10/2010 12:00 AM CDT Phy No Primary/Referring RAD_1 documented in this encounter Visit Diagnoses Not on filedocumented in this encounter
--- OUTSIDE RECORDS SUMMARY | 2022-06-20 02:32 | XMS_ITS | Encounter Summary ---
:1945 Author Organization [facility] Address [address], [place] [address] Care Team Providers Name Role Phone Unavailable Primary Care Provider Unavailable Encounter Details Date Type Department Care Team Description 05/29/2010 Consent for [facility] Department RH INFORM ED CONSENT Procedure/Treatment RECORD Social History Tobacco Use Types Packs/Day Years Used Date Smoking Tobacco: Never Alcohol Use Standard Drinks/Week Comments No 0 (1 standard drink = 0.6 oz pure alcoho l) Sex Assigned at Date Recorded Male 08/06/2021 5:59 PM CDT documented as of this encounter Progress Notes Interface, In Chrtscr And Scan - 06/02/2010 3:49 AM CDT documented in this encounter Plan of Treatment Not on filedocumented as of this encounter Visit Diagnoses Not on filedocumented in this encounter
--- OUTSIDE RECORDS SUMMARY | 2022-06-20 02:32 | XMS_ITS | Encounter Summary ---
:1945 Author Organization [facility] Address [address], [place] [address] Care Team Providers Name Role Phone Unavailable Primary Care Provider Unavailable Encounter Details Date Type Department Care Team Description 05/31/2010 Consent for [facility] Department RH INFORM ED CONSENT Procedure/Treatment RECORD Social History Tobacco Use Types Packs/Day Years Used Date Smoking Tobacco: Never Alcohol Use Standard Drinks/Week Comments No 0 (1 standard drink = 0.6 oz pure alcoho l) Sex Assigned at Date Recorded Male 08/06/2021 5:59 PM CDT documented as of this encounter Progress Notes Interface, In Chrtscr And Scan - 06/02/2010 3:50 AM CDT documented in this encounter Plan of Treatment Not on filedocumented as of this encounter Visit Diagnoses Not on filedocumented in this encounter
--- OUTSIDE RECORDS SUMMARY | 2022-06-20 02:32 | XMS_ITS | Encounter Summary ---
:1945 Author Organization [facility] Address [address], [place] [address] Care Team Providers Name Role Phone Unavailable Primary Care Provider Unavailable Reason for Visit Reason Comments Revisit Encounter Details Date Type Department Care Team Description 11/06/2010 Office Visit Specialty Center Garry Neff tumor of [address] Neuro[facility]gery X, MD thoracic site [address] (Primary Dx) [place] [address] [place], [place] [phone] (Wo rk) Social History Tobacco Use Types Packs/Day Years Used Date Smoking Tobacco: Never Alcohol Use Standard Drinks/Week Comments No 0 (1 standard drink = 0.6 oz pure alcoho l) Sex Assigned at Date Recorded Male 08/06/2021 5:59 PM CDT documented as of this encounter Last Filed Vital Signs Vital Sign Reading Time Taken Comments Blood Pressure 120/68 11/06/2010 11:49 AM TROUBLE SHOOTER Pulse 80 11/06/2010 11:49 AM TROUBLE SHOOTER Temperature 36.6 ??C (97.9 ??F) 11/06/2010 11:49 AM TROUBLE SHOOTER Respiratory Rate 18 11/06/2010 11:49 AM TROUBLE SHOOTER Oxygen Saturation - - Inhaled Oxygen Concentration - - Weight - - Height - - Body Mass Index - - documented in this encounter Patient Instructions Patient InstructionsSelene Johnson RN - 11/06/2010 12:22 PM CST Neurosurgery[facility] Patient Instructions Your current MRI does not show any recurrent thoracic tumor. You will be scheduled for a thoracic MRI, in 3 months. Follow up with Dr. Garry Neff in 3 months. If tests were ordered, they will be reviewed at your next office visit. Please allow 10-14 days for forms to be completed and 2-3 business days for medication refills. Please call the Neurosurgery/Spine Clinic at [phone] with any further questions or concerns. BLE SHOOTER documented in this encounter Progress Notes Garry Neff - 01/30/2011 11:00 AM CDT Lucy Lanza PA-C, am acting as a deli department manager for Dr. Neff who is personally here with me while writting this note This is a dictation on Carl Cullen is a 65 yr old male [id number] 1945 Chief Complaint: F/u tumor resection Carl Cullen is a 65 yr old [...] 10 days following the procedure. Currently pt does admit to some muscles aches, he is taking Flexeril with good relief. Objective: BP 120/68 Pulse 80 Temp(Src) 97.9 ??F (36.6 ??C) (Tympanic) Resp 18 The incision site appears clean, dry with well-approximated edges and no signs of infection or dehiscence. Imaging: Thoracic MRI: 1. Expansile nonenhancing T2 hyperintense lesion or process in the lower thoracic cord centered at T11 is not significantly changed compared to 07/27/2010 and new from 05/26/2010. This remains indeterminate for edema or expansile nonenhancing tumor. 2. Previously demonstrated multiseptated fluid collection in the posterior paraspinal soft tissues in the upper thoracic region related to the previous laminectomy bed has further decreased in size. Again noted are fluid fluid levels within this fluid collection. 3. Previous resection of a portion of the spinal cord from T2-T3 through T5 with atrophy of the mid and distal spinal cord again noted. 4. 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 Neff Recent MRI does not show any recurrent tumor F/u in 3 months with thoracic MRI w/wo contrast Dr. Neff discussed the plan in full with pt and answered all questions Lucy Asset Protection Representative CORINAC Agree with above Garry Neff MD documented in this encounter Plan of Treatment Not on filedocumented as of this encounter Visit Diagnoses Diagnosis Benign tumor of thoracic site - Primary Benign neoplasm of other specified sites documented in this encounter
--- OUTSIDE RECORDS SUMMARY | 2022-06-20 02:32 | XMS_ITS | Encounter Summary ---
:1945 Author Organization [facility] Address [address] [place] [address] Care Team Providers Name Role Phone Unavailable Primary Care Provider Unavailable Encounter Details Date Type Department Care Team Description 07/27/2010 [facility] Eyad ign Tumor of Thoracic Site; Center MRI Screening for Nephropathy [address] [facility] [place] [address] Social History Tobacco Use Types Packs/Day Years [...] Associated Diagnosis Comme nts CREATININE/GFR, WB Routine 07/28/2010 1:13 PM Screening for Re sults for this POC CDT Nephropathy procedure are i n the results section. MR THORACIC SPINE Routine 07/27/2010 11:19 AM Benign Tumor of Results for this W/WO IV CONT CDT Thoracic Site procedure are in the results section. documented in this encounter Results CREATININE/GFR, WB POC (07/28/2010 1:13 PM CDT) P athologist Signature Creat Whole 1.0 0.66 - [facility] Blood 1.25 mg/dl GFR, Estimated >60.0 >60 [facility] ml/min/1.7 3m2 GFR, Est., If >60.0 >60 [facility] Black ml/min/1.7 3m2 Specimen Anatomical Collection Method Collection Time Receive d Time (Source) Location / / Volume Laterality 07/28/2010 1:13 PM 0 1:43 CDT PM CDT Cooper Navarro MD LAB_1 Performing Organization Address City/State/ZIP Code Phon e Number [facility] [phone] [address] MR THORACIC SPINE WITH/WITHOUT CONTRAST (07/27/2010 11:19 AM CDT) Anatomical Region Laterality Modality Spine, T-Spine, L-Spine, C-Spine, Skeletal Magnetic Resonance Specimen (Source) Anatomical Collection Method Collection Time Re ceived Time Location / / Volume Laterality 07/27/2010 11:19 AM CDT Narrative 07/27/2010 5:27 PM CDT THORACIC SPINE MRI ? [facility] 07/27/2010 INDICATION: Followup tumor resection. TECHNIQUE: Thoracic spine MRI without an d with contrast. 20 ml of Magnevist. COMPARISON: 04/29/2010 and 05/26/2010. FINDINGS: 2.2 x 4.4 x 10 cm multiseptated peripher ally enhancing fluid collection in the posterior soft tissues in the upper thoracic region which is significantly smaller today compared to 04/29/2010 and 05/26/2010. Status post upper thoracic laminectomies. Resec tion of a portion of the upper thoracic cord. There appears to be some atrophic changes in the mid and lower thoracic cord. There is a new area of T2 signal abnormality with some mild increase in the size of the lower thoracic cord best seen on STIR sagittal image 10. No evidence of pathol ogic contrast enhancement. The area of signal abnormality appears to have d eveloped since the exam of 05/26/2010. I am uncertain whether this r epresents some cord edema or focal area of nonenhancing tumor. Postradiatio n changes involving the marrow in the lower cervical and upper thoracic sp ine. CONCLUSION: 1. There is a peripherally enhancing mul tiseptated fluid collection in the posterior paraspinal soft tissues in the upper thoracic region which has decreased significantly in size compared to 04/29/2010 and 05/26/2010. 2. Upper thoracic laminectomies with res ection of a segment of the upper thoracic cord. 3. There is atrophic changes in the mid thoracic cord. 4. There is a focal area of increased si gnal with mild enlargement of the distal thoracic cord without pathologic contrast enhancement. I am uncertain whether this may represent mk e cord edema or focal area of nonenhancing intramedullary cord neoplas m. Procedure Note Julien Anna Eren - 07/27/2010 THORACIC SPINE MRI [facility] [place] 07/27/2010 INDICATION: Followup tumor resection. TECHNIQUE: Thoracic spine MRI without an d with contrast. 20 ml of Magnevist. COMPARISON: 04/29/2010 and 05/26/2010. FINDINGS: 2.2 x 4.4 x 10 cm multiseptated peripher ally enhancing fluid collection in the posterior soft tissues in the upper thoracic region which is significantly smaller today compared to 04/29/2010 and 05/26/2010. Status post upper thoracic laminectomies. Resec tion of a portion of the upper thoracic cord. There appears to be some atrophic changes in the mid and lower thoracic cord. There is a new area of T2 signal abnormality with some mild increase in the size of the lower thoracic cord best seen on STIR sagittal image 10. No evidence of pathol ogic contrast enhancement. The area of signal abnormality appears to have d eveloped since the exam of 05/26/2010. I am uncertain whether this r epresents some cord edema or focal area of nonenhancing tumor. Postradiatio n changes involving the marrow in the lower cervical and upper thoracic sp ine. CONCLUSION: 1. There is a peripherally enhancing mul tiseptated fluid collection in the posterior paraspinal soft tissues in the upper thoracic region which has decreased significantly in size compared to 04/29/2010 and 05/26/2010. 2. Upper thoracic laminectomies with res ection of a segment of the upper thoracic cord. 3. There is atrophic changes in the mid thoracic cord. 4. There is a focal area of increased si gnal with mild enlargement of the distal thoracic cord without pathologic contrast enhancement. I am uncertain whether this may represent mk e cord edema or focal area of nonenhancing intramedullary cord neoplas m. Garry Neff MD RAD MRI documented in this encounter Visit Diagnoses Diagnosis Benign tumor of thoracic site Benign neoplasm of other specified sites Screening for nephropathy documented in this encounter
--- OUTSIDE RECORDS SUMMARY | 2022-06-20 02:32 | XMS_ITS | Encounter Summary ---
:1945 Author Organization [facility] Address [address] [place] [address] Care Team Providers Name Role Phone Unavailable Primary Care Provider Unavailable Encounter Details Date Type Department Care Team Description 06/07/2010 Orders Only External to Unknown, Physici an [address] [place], [place] [phone] (Wo rk) Social History Tobacco Use Types Packs/Day Years Used Date Smoking Tobacco: Never Alcohol Use Standard Drinks/Week Comments No 0 (1 standard drink = 0.6 oz pure alcoho l) Sex Assigned at Date Recorded Male 08/06/2021 5:59 PM CDT documented as of this encounter Procedure Notes External, Provider - 06/07/2010 12:00 AM CDTAssociated Order(s): SCANNED LAB documented in this encounter Plan of Treatment Not on filedocumented as of this encounter Procedures Procedure Name Priority Date/Time Associated Diagnosis Comme nts SCANNED LAB 06/07/2010 12:00 AM Results for this CDT procedure are i n the results section . documented in this encounter Results SCANNED LAB (06/07/2010 12:00 AM CDT) Specimen (Source) Anatomical Location Collection Method / Collectio n Time Received Time / Laterality Volume 06/07/2010 Narrative 06/07/2010 12:00 AM CDT This result has an attachment that is no t available. Ordered by an unspecified provider. Transcriptions External, Provider - 06/07/2010 12:00 AM CDT Physician Unknown LAB_1 documented in this encounter Visit Diagnoses Not on filedocumented in this encounter
--- OUTSIDE RECORDS SUMMARY | 2022-06-20 02:32 | XMS_ITS | Encounter Summary ---
:1945 Author Organization [facility] Address [address] [place] [address] Care Team Providers Name Role Phone Unavailable Primary Care Provider Unavailable Reason for Visit Reason Onset Date Comments Other 06/06/2010 Encounter Details Date Type Department Care Team Description 06/06/2010 Telephone Careline Unassigned, Provider Other [address] [place], [place] [address] [place] [address] Social History Tobacco Use Types Packs/Day Years Used Date Smoking Tobacco: Never Assessed Sex Assigned at Date Recorded Male 08/06/2021 5:59 PM CDT documented as of this encounter Nursing Notes Margo Del Toro RN - 06/06/2010 8:10 PM CDT See encounter from 06/06/2010 for member # [id number] This is a mis spelling of pts last name and charts will be merged. Margo Del Toro RN [facility] Teressa Powell - 06/06/2010 7:28 PM CDT Does the patient currently have [employer] insurance?No Which care system is the patient affiliated with?[facility] Situation:Pt is taking medication for meningitis(been going to the hospital daily for the meds) justover 101 with a headache- just started meds last week A nurse will call you back within the next hour. If you have not heard from a nurse, please feel free to call us back at [phone] and state that you are waiting for a callback. documented in this encounter Plan of Treatment Not on filedocumented as of this encounter Visit Diagnoses Not on filedocumented in this encounter
--- OUTSIDE RECORDS SUMMARY | 2022-06-20 02:32 | XMS_ITS | Encounter Summary ---
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); 06/01/2010 640 Александр Saldivar MD CAREPLAN: BACLOFEN; [place], [place] [address] Ependymoma; [address] [place], [place] Spasticity; [phone] [id number] Neurogenic Bladder Social History Tobacco Use Types Packs/Day Years Used Date Smoking Tobacco: Never Alcohol Use Standard Drinks/Week Comments No 0 (1 standard drink = 0.6 oz pure alcoho l) Sex Assigned at Date Recorded Male 08/06/2021 5:59 PM CDT documented as of this encounter Last Filed Vital Signs Vital Sign Reading Time Taken Comments Blood Pressure 141/89 06/01/2010 8:00 AM CDT Pulse 102 06/01/2010 8:00 AM CDT Temperature 36.5 ??C (97.7 ??F) 06/01/2010 8:00 AM CDT Respiratory Rate 22 06/01/2010 8:00 AM CDT Oxygen Saturation 96% 06/01/2010 8:00 AM CDT Inhaled Oxygen Concentration - - Weight 97.5 kg (215 lb) 05/26/2010 8:00 AM CDT Height 177.8 cm (5' 10) 05/26/2010 8:00 AM CDT Body Mass Index 30.85 05/26/2010 8:00 AM CDT documented in this encounter Discharge Summaries Geetha Osuna RN - 06/01/2010 11:15 AM CDT [facility] Discharge Summary Report (MD) Admit Date/Time: 05/26/2010 7:05 AM Discharge Date: 06/01/2010 Service: Neurosurgery Staff MD: Dr. Maurice Baron Admitting Diagnosis: Encounter Diagnoses Code Name Primary? 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 29896 CAREPLAN: BACLOFEN ??? 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 781.0AM Spasticity ??? 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 Baron. He was discharged home on 04/20/10 and was doing well at the time, had fever to 101. He was admitted to [facility] on 04/29 for the fever. He also c/o severe headache since 04/28. He was seen by ID, Medicine, and Nephrology while an inpatient. He was taken to the OR 05/09 for revision of baclofencatheter and pump. The pump was left in situ and he was discharged home on Bactrim. He was discharged back home on 05/13. He was seen in our clinic for follow up, and has not been feeling well. He feels he is tired and weak. His Hgb is 8.8. Hospital Course: Mr. Cullen was admitted to [facility] on 05/26/2010 following lumbar puncture. He was admitted vs outpatient due to his low Hgb, and the appearance of his CSF. CSF was sent to lab for multiple tests. He was transfused with 2 units RBC's. Due to the appearance, and results of CSFit was decided to remove completely his baclofen pump. PM&R was consulted to assist in switchinghim to oral Baclofen, and wean him. ID was also consulted for recommendations for IV antibiotics. A PICC line was placed and he will receive IV Vanco for 10 days. He was started on therapeutic Lovenox,and resumed his Coumadin. INR is not yet therapeutic. Postoperatively he has done well. His incisionis intact. His pain is controlled with oral pain medication. He is taking PRN Valium for muscle spasms. Discharge Disposition: Home Diet: Resume pre-op diet. Increase fiber and fluids to avoid constipation. Activity: No lifting greater than 10 pounds. No repetitive bending, twisting. No driving until seen in follow up in the neurosurgery clinic. No tub bathing, no hot tubs, and no swimming for 30 days post-operatively. Keep incision dry. Wear soft clothing near incisional area. Discharge Medications: Current Discharge Medication List START taking these medications enoxaparin (AKA LOVENOX) 10 MG/0.1ML injection Inject 100 mg subcutaneously every 12 hours. Qty: 10 mL Refills: 0 vancomycin (AKA VANCOCIN) 1000 MG injection Administer 2,500 mg intravenously daily for 10 days. Qty: 15993 mg Refills: 0 CONTINUE these medications which have CHANGED baclofen (AKA LIORESAL) 10 MG tablet Take 1 Tab by mouth three times a day. Qty: 90 Tab Refills: 0 warfarin (AKA COUMADIN) 5 MG tablet Take 1 Tab by mouth daily. Adjust dose based on INR result as directed. Qty: 30 Tab Refills: 11 Comments: Take 7.5mg daily until seen by your primary doctor CONTINUE these medications which have NOT CHANGED acetaminophen (AKA TYLENOL) 325 MG tablet Take 1-2 Tabs by mouth every 4 hours as needed for Pain. Qty: 120 Tab Refills: 1 atorvastatin (LIPITOR) 40 MG tablet Take 1 Tab by mouth daily. citalopram (AKA CELEXA) 40 MG tablet Take 40 mg by mouth daily. cyclobenzaprine (AKA FLEXERIL) 10 MG tablet Take 1 Tab by mouth three times a day as needed for Muscle Spasms. Qty: 60 Tab Refills: 0 docusate sodium (AKA ENEMEEZ) 283 MG enema Insert 5 mL rectally daily as needed. PT. USES ENEMA EVERY OTHER DAY. Qty: 15 Each Refills: 0 enoxaparin (AKA LOVENOX) 100 mg/mL Inject 1 mL subcutaneously every 24 hours. Qty: 2 mL Refills: 0 ferrous sulfate 325 (65 FE) MG tablet Take 1 Tab by mouth daily with breakfast. Qty: 60 Tab Refills: 0 Gabapentin (AKA NEURONTIN) 100 MG tablet Take 2 Tabs by mouth three times a day. hydrocodone-acetaminophen (AKA VICODIN,LORTAB) 5-500 MG tablet Take 1-2 Tabs by mouth every 4 hours as needed for Pain. Qty: 60 Tab Refills: 0 lactulose 10 GM/15ML solution Take 30 mL by mouth two times a day as needed. For constipation Qty: 240 mL Refills: 0 LORazepam (AKA ATIVAN) 0.5 MG tablet Take 2 Tabs by mouth three times a day. OMEGA-3 FATTY ACIDS OR Take 1 Cap by mouth daily. senna (AKA SENOKOT) 8.6 MG tablet Take 2 Tabs by mouth daily. USES 3 TABS IN THE AM & 2 TABS AT HS EVERY OTHER DAY. Qty: 30 Tab Refills: 0 TRIMETHOPRIM OR Take 100 mg by mouth daily. STOP taking these medications BACLOFEN IT Comments: Reason for Stopping: doxycycline hyclate (AKA VIBRA-TABS) 100 MG tablet Comments: Reason for Stopping: povidone-iodine (AKA BETADINE) 10 % external solution Comments: Reason for Stopping: Followup: He should follow up with his PMD Saturday for INR and Vanco levels. 06/[address] Maurice Osuna RN Neurosurgery Nurse Clinician [phone] I, Geetha Osuna RN, am serving as a scribe to document services personally performed by Dr. Maurice Baron. All data has been reviewed by Dr. Maurice Baron. --- End of Report --- Maurice Baron - 06/01/2010 11:15 AM CDT AGREE WITH THE DC SUMMARY ENTERED BY MRS. Katia OSUNA RN. Maurice Baron MD 06/11/2010, 11:17 PM documented in this encounter Discharge Instructions Discharge InstructionsPriti Hickey RN - 06/01/2010 11:47 AM CDT Images from the original note were not included. [address] [place] [address] Discharge Instructions for: Jie Cullen Thank you for choosing [facility] as your hospital. A copy of your discharge instructions has been given to you. Please read the instructions carefully. The staff will go over this information with you and answer your questions. General Information Allergies: Zaroxolyn and Oxycodone Phone number: Telephone Information: Discharging physician: Maurice Baron Discharge date: 06/01/2010 Primary Care Provider Primary care provider: Not On File Provider Discharge Disposition HOME Immunization Most Recent Immunizations [...] the Immun/Injection section of the chart Home Medications Carefully read the medication handouts you are given. They contain information about the purpose andside effects of your medications. Talk to your doctor before taking other medications. For additional information about your medications, visit this [facility] website, [email or web address]. Current Discharge Medication List START taking these medications enoxaparin (AKA LOVENOX) 10 MG/0.1ML injection Inject 100 mg subcutaneously every 12 hours. Qty: 10 mL Refills: 0 Last dose at 1130 on 06/01/2010 Take next dose tonight and then start every 12 hours on home schedule vancomycin (AKA VANCOCIN) 1000 MG injection Administer 2,500 mg intravenously daily for 10 days. Qty: 61099 mg Refills: 0 Last dose at 8 a.m., 06/01/2010 Next dose due tomorrow morning, 06/02/10 CONTINUE these medications which have CHANGED baclofen (AKA LIORESAL) 10 MG tablet Take 1 Tab by mouth three times a day. Qty: 90 Tab Refills: 0 Last dose at 8 a.m., 06/01/2010 Take next dose at 2 p.m., 06/01/2010 warfarin (AKA COUMADIN) 5 MG tablet Take 1 Tab by mouth daily. Adjust dose based on INR result as directed. Qty: 30 Tab Refills: 11 Comments: Take 7.5mg daily until seen by your primary doctor Last dose at 4 p.m., yesterday, May 31 Take next dose at 4 p.m. tonight CONTINUE these medications which have NOT CHANGED acetaminophen (AKA TYLENOL) 325 MG tablet Take 1-2 Tabs by mouth every 4 hours as needed for Pain. Qty: 120 Tab Refills: 1 None taken today atorvastatin (LIPITOR) 40 MG tablet Take 1 Tab by mouth daily. Last dose yesterday evening, May 31 Take next dose tonight citalopram (AKA CELEXA) 40 MG tablet Take 40 mg by mouth daily. Last dose at 8 a.m., 06/01/2010 Next dose due tomorrow morning, 06/02/10 cyclobenzaprine (AKA FLEXERIL) 10 MG tablet Take 1 Tab by mouth three times a day as needed for Muscle Spasms. Qty: 60 Tab Refills: 0 None taken today docusate sodium (AKA ENEMEEZ) 283 MG enema Insert 5 mL rectally daily as needed. PT. USES ENEMA EVERY OTHER DAY. Qty: 15 Each Refills: 0 None taken today ferrous sulfate 325 (65 FE) MG tablet Take 1 Tab by mouth daily with breakfast. Qty: 60 Tab Refills: 0 None taken today Gabapentin (AKA NEURONTIN) 100 MG tablet Take 2 Tabs by mouth three times a day. Last dose at 8 a.m., 06/01/2010 Next dose due tomorrow morning, 06/02/10 hydrocodone-acetaminophen (AKA VICODIN,LORTAB) 5-500 MG tablet Take 1-2 Tabs by mouth every 4 hours as needed for Pain. Qty: 60 Tab Refills: 0 None taken today lactulose 10 GM/15ML solution Take 30 mL by mouth two times a day as needed. For constipation Qty: 240 mL Refills: 0 None taken today LORazepam (AKA ATIVAN) 0.5 MG tablet Take 2 Tabs by mouth three times a day. OMEGA-3 FATTY ACIDS OR Take 1 Cap by mouth daily. None taken today senna (AKA SENOKOT) 8.6 MG tablet Take 2 Tabs by mouth daily. USES 3 TABS IN THE AM & 2 TABS AT HS EVERY OTHER DAY. Qty: 30 Tab Refills: 0 TRIMETHOPRIM OR Take 100 mg by mouth daily. None taken today STOP taking these medications BACLOFEN IT Comments: Reason for Stopping: doxycycline hyclate (AKA VIBRA-TABS) 100 MG tablet Comments: Reason for Stopping: povidone-iodine (AKA BETADINE) 10 % external solution Comments: Reason for Stopping: Designated Pharmacy for Discharge Medications: [facility] If you were taking a medication before admission and you do not see it on the list of home medications, please contact your primary care doctor. Additional Orders Clinic Referral CLINIC: [facility]: Neurosurgery; [phone]; [address] [place] [address] DOCTORS NAME: Dr. Maurice Baron WHEN TO BE SEEN: On (date) 06/19 at 2:00 REASON FOR APPOINTMENT: MDfollow up Discharge Instructions Monitor incision daily for signs of infection (redness, drainage, warmth). Call the Neurosurgery Clinic at [phone] with any incisional changes. Keep incision dry. Cover with Nexcare or Tegaderm for showers, for one week, and remove immediately after shower. Leave incision open to air. Call the doctor for these danger signs Any changes in your incision: redness, swelling, drainage, tenderness, or fever greater than 100.5. Any changes in sensation or decrease in strength to your extremeties. Neurosurgery clinic [phone]. ADMIT TO HOME CARE AGENCY NAME: [facility] [phone]. DATE OF FIRST VISIT: 1-2 days after discharge. ADDITIONAL NEEDS: Please evaluate and treat. LAB TESTS Lab Order: INR (to be drawn by infusion nurse at hospital) SCHEDULING INSTRUCTIONS (date/time): Saturday, June 02. Please fax or call results to coumadin nurse at Dr. Mcmahan's clinic. LAB TESTS Lab Order: INR and Vanco level prior to vanco infusion SCHEDULING INSTRUCTIONS (date/time): Saturday, June 05 prior to vanco infusion. (Infusion clinic to draw) CLINIC REFERRAL CLINIC: [facility]; [facility] [phone] DOCTORS NAME: Dr. Arjun Mcmahan WHEN TO BE SEEN: On (date) June 08 at 2:30 pm REASON FOR APPOINTMENT: Hospital follow-up, orders to dc picc line once vanco completed on June 09 IV Therapy Vancomycin 2500mg IV qday (in 500ml NS) to be INFUSED OVER AT LEAST 2.5 TO 3 HOURS due to a large dose. -- check a PRE-infusion Vanco level on 06/05 --The goal of vanco trough level is 15-20 mcg/ml RESUME PRIOR DIET Home Care Instructions Patient Teaching Handouts listed above Valuables/Medications Disposition of Money: Not Applicable Disposition of Medications: (not recorded) Patient and/or family verified that all valuables have been returned: Yes Patient and/or family verified that all valuables removed from room safe: Yes Danger Signs Call your clinic or seek medical help if you have any sudden change in your condition or if you haveany of the following: chest pain difficulty breathing fever greater than 100.5 degrees F pain not relieved with usual methods shortness of breath Community [place] [address] For questions about your discharge instructions call the nursing unit : [facility] [phone] Emergency & Urgently Needed Care: For emergencies call 911 and/or get medical help right away. If you are a [facility] member and have medical needs after clinic hours you may call the CareLineat [phone] or . All medical devices (telemetry/IV/etc) unless otherwise ordered, have been removed before discharge. Smoking and second-hand smoke exposure: Smoking damages blood vessels, reduces the oxygen in your blood and makes your heart beat too fast. If you smoke you should quit. Everyone should avoid second- hand smoke. If you would like further assistance after your discharge, please contact [phone] or visit [email or web address] can offer further information and assistance. Stroke Warning Signs and Symptoms: Call immediately if you experience any of these symptoms: ?? Sudden weakness or numbness of the face, arm or leg, especially on one side of the body Sudden confusion, trouble speaking or understanding Sudden trouble seeing in one or both eyes Sudden trouble walking, dizziness, loss of balance [...] weight will also be followed by the Provisioning Analyst when you go in for your treatment. We hope you had a positive experience and that you can definitely recommend [facility] to yourfamily and friends. You???ll be receiving a survey in the mail in about 2 weeks and we look forward to hearing your feedback. When leaving your room at discharge, please stop at the nursing unit desk to check out. I understand my discharge instructions: Jie Cullen (or Program Director [employer]) documented in this encounter Medications at Time of Discharge Medication Sig Dispensed Refills Start Date End Date vancomycin (AKA Administer 2,500 mg 68794 mg 0 06/01/2010 06/11/2010 VANCOCIN) 1000 MG intravenously daily injection for 10 days. acetaminophen (AKA Take 1-2 Tabs by mouth 120 Tab 1 04/1911/06/2010 TYLENOL) 325 MG tablet every 4 hours as needed for Pain. atorvastatin (LIPITOR) Take 1 Tab by mouth 0 10/21/2014 40 MG tablet daily. baclofen (AKA LIORESAL) Take 1 Tab by mouth 90 Tab 0 02/28/2011 10 MG tablet three times a day. citalopram (AKA CELEXA) Take 40 mg by mouth 0 10/02/2011 40 MG tablet daily. cyclobenzaprine (AKA Take 1 Tab by mouth 60 Tab 0 200902/28/2011 FLEXERIL) 10 MG tablet three times a day as needed for Muscle Spasms. docusate sodium (AKA Insert 5 mL rectally 15 Each 0 04/2103/15/2011 ENEMEEZ) 283 MG enema daily as needed. PT. USES ENEMA EVERY OTHER DAY. enoxaparin (AKA Inject 100 mg 10 mL 0 06/01/20102009 LOVENOX) 10 MG/0.1ML subcutaneously every injection 12 hours. enoxaparin (AKA Inject 1 mL 2 mL 0 05/22/2010 06/02/20 10 LOVENOX) 100 subcutaneously every mg/mLIndications: DVT 24 hours. (deep venous thrombosis) (HRC), Ependymoma (HRC) ferrous sulfate 325 (65 Take 1 Tab by mouth 60 Tab 0 06/201007/27/2010 FE) MG tablet daily with breakfast. Gabapentin (AKA Take 2 Tabs by mouth 0 07/27/2010 NEURONTIN) 100 MG three times a day. tablet hydrocodone-acetaminoph Take 1-2 Tabs by mouth 60 Tab 0 05/22/2010 07/27/2010 en (AKA VICODIN,LORTAB) every 4 hours as 5-500 MG tablet needed for Pain. lactulose 10 GM/15ML Take 30 mL by mouth 240 mL 0 200907/27/2010 solution two times a day as needed. For constipation LORazepam (AKA ATIVAN) Take 2 Tabs by mouth 0 09/17/2014 0.5 MG tablet three times a day. OMEGA-3 FATTY ACIDS OR Take 1 Cap by mouth 0 07/27/2010 daily. senna (AKA SENOKOT) 8.6 Take 2 Tabs by mouth 30 Tab 0 02/28/2011 MG tablet daily. USES 3 TABS IN THE AM & 2 TABS AT HS EVERY OTHER DAY. TRIMETHOPRIM OR Take 100 mg by mouth 0 10/20/2014 daily. warfarin (AKA COUMADIN) Take 1 Tab by mouth 30 Tab 11 03/16/2011 5 MG tablet daily. Adjust dose based on INR result as directed. documented as of this encounter Progress Notes Priti Hickey RN - 06/01/2010 1:37 PM CDT [facility] Discharge Note - Nursing Admission Date/Time: 05/26/2010 7:05 AM Attending MD: Maurice Baron Patient discharged: to Home. Discharge Date: 06/01/2010 Discharge Time: 1315 Patient accompanied by: spouse. Transported by: Wheelchair Valuables were taken home by patient: Yes Discharge instructions given and explained to patient: Yes Discharge Patient Education Plan completed, taught, and provided to patient/caregiver at discharge: Yes ?? Discussed medication risks with patient Patient understands medications usage and side effects Patient understands diagnosis Action Plan for management of symptoms/side effects/complications requiring medical attention established and shared with patient/caregiver Patients general condition on discharge: good All medical devices (telemetry/IV/etc) unless otherwise ordered, have been removed and stored: Yes Report Completed by: Priti Hickey RN --- End of Report --- Sangeeta Bocanegra OTR/L - 06/01/2010 1:[address] [facility] Occupational Therapy Progress Note This patient is scheduled to be seen by Occupational Therapy. VLADIMIR Oliveros (pager) OT Dept #: [phone] - OT Weekend Pager #: [phone] - [facility] [place] Main #: [phone] Tania Brantley Ruben - 06/01/2010 12:21 PM CDT [facility] Care Management Discharge Note Admission Date/Time: 05/26/2010 7:05 AM Attending MD: Maurice Baron Discharge Plan: Anticipated Discharge Date: 06/01/10 Anticipated Discharge Time: 13:00 Patient to be discharged: with Home Care Service: [facility] for home PT. Patient to be accompanied by: spouse. Transportation arranged for discharge: has own wc here Pt has been cleared for dc today. Will need 10 days of IV Vanco. Infusions have been arranged through [address] in [place]. Have been in contact with kurt [facility] person who is aware pt discharging today and needs first infusion tomorrow at 08:00 as well as labs on Saturday and Saturday. She will call pt at home to arrange appointment. Pt in need of INR draw tomorrow and again on Saturday. Ialerted the coumadin nurseHanna at primary clinic. Infusion nurse to draw labs and fax results to primary and coumadin nurse. Pt also in need of vanco level draw on Saturday. Spoke with KIERSTEN Wolfe who felt pt should follow up with his primary prior to last dose of vanco to be certain pt doing well. Appt was made for pt with Dr. Mcmahan on June 08 at 2:30pm. I did speak with Dr. Mcmahan nurseMacy this am. She is aware of plan and I have faxed her information for continuity of care as well as the dc orders for her to cosign and send to [facility]. Pt also open to HC for home PT through [facility]. I have alerted them to dc today and faxed dc orders. Have faxed dc orders also to Hospital, coumadin nurse, and Dr. Mcmahan. Met with pt's . Reviewed all the follow up appointments, labs needed, and IV infusion plans. Answered her questions. Pt anxious to dc home soon. Updated pt's bedside RN with above information as well. Call with questions. VALERIE Cavazos to Dr. Mcmahan: Phone: and Fax: VALERIE Ferreira in coumadin Clinic: Phone: and Fax: [facility]; Kurt MagañaSenior Loss Control Specialist: Phone: and Fax: [facility]: Phone: and Fax: Followup: as ordered on dc instructions. Discharge Disposition Code: 06: Discharged or transferred to home under care of organized home health service organization Report completed by Tania Brantley RN, Pager Number [phone] --- End of Report --- Tania Brantley - 06/01/2010 11:39 AM CDT [facility] DISCHARGE ORDERS Patient Name: Jie Cullen Date of : 1945 Allergies: Zaroxolyn and Oxycodone Immunizations: Most Recent Immunizations Administered Date(s) Administered ??? Flu Vac (3+ yrs) 10/06/2009 ??? H1n1 Miv Csl 3+ Yr (Injected) 12/06/2009 ??? Pneumococcal, PPSV23 10/06/2009 Current Attending Provider: Maurice Baron MD Discharge Procedure Orders Clinic Referral Order Comments: CLINIC: [facility]: Neurosurgery; [phone]; [address] [place] [address] DOCTORS NAME: Dr. Maurice Baron WHEN TO BE SEEN: On (date) 06/19 at 2:00 REASON FOR APPOINTMENT: MDfollow up Discharge Instructions Order Comments: Monitor incision daily for signs of infection (redness, drainage, warmth). Call the Neurosurgery Clinic at [phone] with any incisional changes. Keep incision dry. Cover with Nexcare or Tegaderm for showers, for one week, and remove immediately after shower. Leave incision open to air. Call the doctor for these danger signs Order Comments: Any changes in your incision: redness, swelling, drainage, tenderness, or fever greater than 100.5. Any changes in sensation or decrease in strength to your extremeties. Neurosurgery clinic [phone]. ADMIT TO HOME CARE Order Comments: AGENCY NAME: [facility] [phone]. DATE OF FIRST VISIT: 1-2 days after discharge. ADDITIONAL NEEDS: Please evaluate and treat. LAB TESTS Order Comments: Lab Order: INR (to be drawn by infusion nurse at hospital) SCHEDULING INSTRUCTIONS (date/time): June 02. Please fax or call results to coumadin nurse at Dr. Mcmahan's clinic. LAB TESTS Order Comments: Lab Order: INR and Vanco level prior to vanco infusion SCHEDULING INSTRUCTIONS (date/time): June 05 prior to vanco infusion. (Infusion clinic to draw) CLINIC REFERRAL Order Comments: CLINIC: [facility]; [facility] [phone] DOCTORS NAME: Dr. Arjun Mcmahan WHEN TO BE SEEN: On (date) June 08 at 2:30 pm REASON FOR APPOINTMENT: Hospital follow-up, orders to dc picc line once vanco completed on June 09 IV Therapy Order Comments: Vancomycin 2500mg IV qday (in 500ml NS) to be INFUSED OVER AT LEAST 2.5 TO 3 HOURS due to a large dose. -- check a PRE-infusion Vanco level on 06/05 --The goal of vanco trough level is 15-20 mcg/ml RESUME PRIOR DIET Discharge Medication Orders Current Discharge Medication List START taking these medications enoxaparin (AKA LOVENOX) 10 MG/0.1ML injection Inject 100 mg subcutaneously every 12 hours. Qty: 10 mL Refills: 0 vancomycin (AKA VANCOCIN) 1000 MG injection Administer 2,500 mg intravenously daily for 10 days. Qty: 46145 mg Refills: 0 CONTINUE these medications which have CHANGED baclofen (AKA LIORESAL) 10 MG tablet Take 1 Tab by mouth three times a day. Qty: 90 Tab Refills: 0 warfarin (AKA COUMADIN) 5 MG tablet Take 1 Tab by mouth daily. Adjust dose based on INR result as directed. Qty: 30 Tab Refills: 11 Comments: Take 7.5mg daily until seen by your primary doctor CONTINUE these medications which have NOT CHANGED acetaminophen (AKA TYLENOL) 325 MG tablet Take 1-2 Tabs by mouth every 4 hours as needed for Pain. Qty: 120 Tab Refills: 1 atorvastatin (LIPITOR) 40 MG tablet Take 1 Tab by mouth daily. citalopram (AKA CELEXA) 40 MG tablet Take 40 mg by mouth daily. cyclobenzaprine (AKA FLEXERIL) 10 MG tablet Take 1 Tab by mouth three times a day as needed for Muscle Spasms. Qty: 60 Tab Refills: 0 docusate sodium (AKA ENEMEEZ) 283 MG enema Insert 5 mL rectally daily as needed. PT. USES ENEMA EVERY OTHER DAY. Qty: 15 Each Refills: 0 enoxaparin (AKA LOVENOX) 100 mg/mL Inject 1 mL subcutaneously every 24 hours. Qty: 2 mL Refills: 0 ferrous sulfate 325 (65 FE) MG tablet Take 1 Tab by mouth daily with breakfast. Qty: 60 Tab Refills: 0 Gabapentin (AKA NEURONTIN) 100 MG tablet Take 2 Tabs by mouth three times a day. hydrocodone-acetaminophen (AKA VICODIN,LORTAB) 5-500 MG tablet Take 1-2 Tabs by mouth every 4 hours as needed for Pain. Qty: 60 Tab Refills: 0 lactulose 10 GM/15ML solution Take 30 mL by mouth two times a day as needed. For constipation Qty: 240 mL Refills: 0 LORazepam (AKA ATIVAN) 0.5 MG tablet Take 2 Tabs by mouth three times a day. OMEGA-3 FATTY ACIDS OR Take 1 Cap by mouth daily. senna (AKA SENOKOT) 8.6 MG tablet Take 2 Tabs by mouth daily. USES 3 TABS IN THE AM & 2 TABS AT HS EVERY OTHER DAY. Qty: 30 Tab Refills: 0 TRIMETHOPRIM OR Take 100 mg by mouth daily. These orders have been electronically signed. (In accordance with [employer] Fed. Regulation Set, Fed A0232 - Types of Authentication) Discharging MD: Dr. Baron Today's Date: 06/01/10 --- End of Report --- Tania Brantley - 06/01/2010 11:33 AM CDT [facility] Transfer Orders to Home Health Care Patient Name: Jie Cullen Date of : 1945 Allergies: Zaroxolyn and Oxycodone Immunizations: Most Recent Immunizations Administered Date(s) Administered ??? Flu Vac (3+ yrs) 10/06/2009 ??? H1n1 Miv Csl 3+ Yr (Injected) 12/06/2009 ??? Pneumococcal, PPSV23 10/06/2009 Current Attending Provider: Maurice Baron MD Discharge Procedure Orders Clinic Referral Order Comments: CLINIC: [facility]: Neurosurgery; [phone]; [address] [place] [id number] DOCTORS NAME: Dr. Maurice Baron WHEN TO BE SEEN: On (date) 06/19 at 2:00 REASON FOR APPOINTMENT: MDfollow up Discharge Instructions Order Comments: Monitor incision daily for signs of infection (redness, drainage, warmth). Call the Neurosurgery Clinic at [phone] with any incisional changes. Keep incision dry. Cover with Nexcare or Tegaderm for showers, for one week, and remove immediately after shower. Leave incision open to air. Call the doctor for these danger signs Order Comments: Any changes in your incision: redness, swelling, drainage, tenderness, or fever greater than 100.5. Any changes in sensation or decrease in strength to your extremeties. Neurosurgery clinic [phone]. ADMIT TO HOME CARE Order Comments: AGENCY NAME: [facility] [phone]. DATE OF FIRST VISIT: 1-2 days after discharge. ADDITIONAL NEEDS: Please evaluate and treat. LAB TESTS Order Comments: Lab Order: INR (to be drawn by infusion nurse at hospital) SCHEDULING INSTRUCTIONS (date/time): Saturday, June 02. Please fax or call results to coumadin nurse at Dr. Mcmahan's clinic. LAB TESTS Order Comments: Lab Order: INR and Vanco level prior to vanco infusion SCHEDULING INSTRUCTIONS (date/time): Saturday, June 05 prior to vanco infusion. (Infusion clinic to draw) CLINIC REFERRAL Order Comments: CLINIC: [facility]; [facility] [phone] DOCTORS NAME: Dr. Arjun Mcmahan WHEN TO BE SEEN: On (date) June 08 at 2:30 pm REASON FOR APPOINTMENT: Hospital follow-up, orders to dc picc line once vanco completed on June 09 IV Therapy Order Comments: Vancomycin 2500mg IV qday (in 500ml NS) to be INFUSED OVER AT LEAST 2.5 TO 3 HOURS due to a large dose. -- check a PRE-infusion Vanco level on 06/05 --The goal of vanco trough level is 15-20 mcg/ml RESUME PRIOR DIET Discharge Medication Orders Current Discharge Medication List START taking these medications enoxaparin (AKA LOVENOX) 10 MG/0.1ML injection Inject 100 mg subcutaneously every 12 hours. Qty: 10 mL Refills: 0 vancomycin (AKA VANCOCIN) 1000 MG injection Administer 2,500 mg intravenously daily for 10 days. Qty: 66833 mg Refills: 0 CONTINUE these medications which have CHANGED baclofen (AKA LIORESAL) 10 MG tablet Take 1 Tab by mouth three times a day. Qty: 90 Tab Refills: 0 warfarin (AKA COUMADIN) 5 MG tablet Take 1 Tab by mouth daily. Adjust dose based on INR result as directed. Qty: 30 Tab Refills: 11 Comments: Take 7.5mg daily until seen by your primary doctor CONTINUE these medications which have NOT CHANGED acetaminophen (AKA TYLENOL) 325 MG tablet Take 1-2 Tabs by mouth every 4 hours as needed for Pain. Qty: 120 Tab Refills: 1 atorvastatin (LIPITOR) 40 MG tablet Take 1 Tab by mouth daily. citalopram (AKA CELEXA) 40 MG tablet Take 40 mg by mouth daily. cyclobenzaprine (AKA FLEXERIL) 10 MG tablet Take 1 Tab by mouth three times a day as needed for Muscle Spasms. Qty: 60 Tab Refills: 0 docusate sodium (AKA ENEMEEZ) 283 MG enema Insert 5 mL rectally daily as needed. PT. USES ENEMA EVERY OTHER DAY. Qty: 15 Each Refills: 0 enoxaparin (AKA LOVENOX) 100 mg/mL Inject 1 mL subcutaneously every 24 hours. Qty: 2 mL Refills: 0 ferrous sulfate 325 (65 FE) MG tablet Take 1 Tab by mouth daily with breakfast. Qty: 60 Tab Refills: 0 Gabapentin (AKA NEURONTIN) 100 MG tablet Take 2 Tabs by mouth three times a day. hydrocodone-acetaminophen (AKA VICODIN,LORTAB) 5-500 MG tablet Take 1-2 Tabs by mouth every 4 hours as needed for Pain. Qty: 60 Tab Refills: 0 lactulose 10 GM/15ML solution Take 30 mL by mouth two times a day as needed. For constipation Qty: 240 mL Refills: 0 LORazepam (AKA ATIVAN) 0.5 MG tablet Take 2 Tabs by mouth three times a day. OMEGA-3 FATTY ACIDS OR Take 1 Cap by mouth daily. senna (AKA SENOKOT) 8.6 MG tablet Take 2 Tabs by mouth daily. USES 3 TABS IN THE AM & 2 TABS AT HS EVERY OTHER DAY. Qty: 30 Tab Refills: 0 TRIMETHOPRIM OR Take 100 mg by mouth daily. These orders have been electronically signed. (In accordance with [employer] Fed. Regulation Set, Fed A0232 - Types of Authentication) Discharging MD: Dr. Baron Today's Date: 06/01/10 --- End of Report --- George Jose - 06/01/2010 10:43 AM CDT Infectious Disease Consult Service Plan for discharge: Patient to be discharged to: Home He will follow-up at the [facility] in [place] for intravenous infusion of vancomycin 2500 mg daily. Vancomycin stop date: 06/09/10 Patient does not need Infectious Diseases follow-up with us. Laboratory Monitoring: Vancomycin trough on SaturdayJune 05 Patient should follow-up with his primary prior to completing the vancomycin on 06/09/10 Patient's primary physician is Dr. Arjun Tang MD Geetha Osuna RN - 06/01/2010 7:49 AM CDT [facility] NeuroSurgery Progress Note 06/01/2010 Vitals Temp (24hrs), Min:97.5 ??F (36.4 ??C), Max:99.3 ??F (37.4 ??C) No Data Recorded Exam Laying in bed comfortably Patient is awake/alert and answers questions appropriately. Movement: Moves BUE to command. Ready to dc home Labs Lab Results Component Value Date/Time ??? SODIUM 136 05/30/10 12:28 PM ??? HGB 10.5* 05/30/10 12:28 PM ??? PROTIME 17.5* 05/31/10 10:54 AM ??? INR 1.4 05/31/10 10:54 AM ??? INR 3.0 05/22/10 12:05 PM ??? CSFRBC 39314 05/26/10 10:30 AM ??? CSFRBC 99820 05/26/10 10:30 AM ??? CSFWBC 318* 05/26/10 10:30 AM ??? CSFWBC 352* 05/26/10 10:30 AM ??? CSFLYMPH 9 05/26/10 10:30 AM ??? CSFLYMPH 15 05/26/10 10:30 AM ??? CSFGLUCOSE 25* 05/26/10 10:30 AM ??? CSFPROTEIN 248* 05/26/10 10:30 AM Imaging No new imaging results Assessment 65 yo male s/p baclofen pump removal on 05-29-[address] Baron Plan at bedside, answered questions Continue PICC line IV Vanco x 10 days, will be infused daily at facility near his home PRE-infusion Vanco level perferrable on Sat, 06/03 if home care service available; otherwise on 06/05 (The goal of vanco trough level is 15-20 mcg/ml) Coumadin, 7.5mg daily. Should follow up with PMD in 2-3 days SQ lovenox BID, will dc home with Lovenox as well. Both Lovenox and Coumadin until INR is therapeutic d/c home today after Vanco infused this am Geetha Osuna RN Neurosurgery Nurse Clinician [phone] I, Geetha Osuna RN, am serving as a scribe to document services personally performed by Dr. Maurice Baron. All data has been reviewed by Dr. Maurice Baron. --- End of Report --- Maurice Baron - 06/01/2010 7:49 AM CDT I have examined the patient and reviewed the plan of care and agree with the previous note. Maurice Baron MD 06/19/2010, 12:47 PM Milo Salinas RN - 05/31/2010 9:53 PM CDT [facility] Progress Note (Nursing) Identify/Problem(s): Post Op Status Desired Outcome(s): Will have optimal surgical recovery. Evaluation: VSS, alert, oriented X4, and afebrile. No change in neuro functions noted. Medicated with Tylenol 650mg po for MORAN with good relief verbalized Surgical dressings are C/D/I and flat, no hematoma noted. Repositioned frequently to maintain intact skin integrity and to keep him comfortable. Has his atthe bedside, very helpful. Green is patent with good output. Bowels are active in all quadrants. Plan: Continue with plan of care. Milo Salinas RN --- End of Report --- AT Milo Salinas RN - 05/31/2010 8:58 PM CDT Problem: Falls Risk Goal: Moderate Risk (5-10): Fall Prevention I applied all active moderate risk falls prevention interventions. Mckayla Hernandez - 05/31/2010 8:37 PM CDT [facility] Clinical Pharmacy Follow Up Kinetics Note Assessment: Jie Cullen, [id number], is a 65 yr year old male receiving Vanco 1500mg IV q12h (Day #2) forCNS coverage s/p baclofen pump removal due to infection. Plan is to continue vanco for 10 day courseper ID. Recent Labs Basename 05/31/10 1600 ??? VANCO 19.2* Desired trough 15-20 mcg/ml Recommendations: 1. The trough level is within the target goal with current vanco dosing of 1.5g IV q12h. 2. ID team would like pt to be on once daily vanco for ease of home infusion at discharge -- recommend to change vanco to 2500mg IV qday (in 500ml NS) to be INFUSED OVER AT LEAST 2.5 TO 3 HOURS due to a large dose. Ist dose to be started in am at 0800. -- please consider to check a PRE-infusion Vanco level perferrable on Sat, 06/03 if home care service available; otherwise on Mon, 06/05 --The goal of vanco trough level is 15-20 mcg/ml Please call if any questions. Mckayla Hernandez, PharmD Pager Number [phone] --- End of Report --- Priti Hickey RN - 05/31/2010 8:07 PM CDT Problem: Falls Risk Goal: Moderate Risk (5-10): Fall Prevention I applied all active moderate risk falls prevention interventions. Priti Hickey RN - 05/31/2010 6:37 PM CDT [facility] Progress Note (Nursing) Identify/Problem(s): Comfort Mobility Skin integrity Discharge preparation Desired Outcome(s): Will be comfortable Will have assistance with mobility Will have skin care Will have preparation for discharge to home Evaluation: Slight headache this morning, otherwise not pain. Headache relieved with Tylenol. Needs maximum assistance from staff to slide board from chair to bed, assistance to boost up in the bed. Red neel area. Nystatin ordered. Skin cleaned and nystatin power applied. Received PICC line this morning. Green catheter changed per patient request in preparation for goinghome tomorrow. BP 124/75 Pulse 91 Temp(Src) 97.5 ??F (36.4 ??C) (Oral) Resp 18 Ht 5' 10 (1.778 m) Wt 97.523 kg (215 lb) SpO2 98% Plan: Monitor comfort level, assist with transfers, reposition, monitor skin, teach discharge planning. Priti Hickey RN --- End of Report --- Karon Tania Miranda - 05/31/2010 3:44 PM CDT [facility] Care Management Sound Mixer Follow Up Note Admission Date/Time: 05/26/2010 7:05 AM Attending MD: Maurice Baron Date Chart reviewed; discussed with interdisciplinary team and with patient and family. Coordination of Care: Provided patient/family with options for dc planning. Barriers to Discharge: patient continues to require acute medical care Updated Assessment Discussed plan of care with ISMAEL Iniguez clinician. Pt is close to being ready for dc. Pt will need IV Vanco at time of dc. PICC placed today. Unsure of dosing at this time, need to await the 1600 vanco level. Discussed with Pharm D, Kierra. If pt needs Q12 hour dosing, would like 08:00 and 20:00 times as pt will be going into clinic for iv infusion. Kierra will pass this on to her colleague who will make adjustments this evening. I spoke with pt's primary MD's nurse, Lenore this am (ph: opton #[phone]). She had spoken with Dr. Arjun Mcmahan and states MD will cosign IV orders so pt can receiveiv infusions at the [address] in [place] Dr. Mcmahan starts clinic at 13:00 tomorrow. I will fax her the dc orders to for her signature and she will then fax to hospital. Roderick spoke with the Senior Loss Control Specialist, Archana at [facility], ph: and fax: . She confirms they can provide iv infusion for pt. I did fax her some information this afternoon for her review. Will need to fax her dc orders and summary in am as well. During weekdays, he will come into infusion clinic and on weekday evenings and weekends will go into the ED for infusions. Also spokewith KIERSTEN Wolfe. Requested he be very specific when writing dc orders for follow up labs and follow up clinic appointment as pt will be receiving infusions at outside facility. Will follow up withNS, ID, and Pharm D in am to confirm and finalize dc plans. Pt will also need to resume home PT through [facility]. Will notify them on day of dc. Pt will also dc on coumadin and lovenox. Will alert coumadin nurse at his primary clinic with inr results while here, coumadin/lovenox doses given, and to inform her when inr draw needed. I met with pt's this afternoon in room. Pt is asleep during conversation. Reviewed all of the above with her and she is very thankful for the help and agrees with plan. Will follow up with pt and in am. Updated bedside RN with above information as well. Pt willlikely dc after am dose of IV Vanco. Call with questions. Updated Plan of Care Anticipated Discharge Date: 06/01 Anticipated Discharge Plan: home with outpt IV infusions. Plan for Follow Up: in am Report completed by Tania Brantley RN, Pager Number [phone] --- End of Report --- Martha Thomas - 05/31/2010 3:26 PM CDT [facility] PM&R Progress Note () Date of service: 05/31/2010 Diagnosis: residual paraplegia, secondary to Ependymoma. Patient Active Hospital Problem List: * No active hospital problems. * SUBJECTIVE: No new problems, patient denies any spasms or any increased pain. No abd spasms. Some back tightness. No pain. No increased tone. Had a large BM last night. Continues with Ronald, plan to f/up with his urologist closer to home. . OBJECTIVE: Patient Vital Signs in the past 24 hrs: Height Wt - Scale Temp Temp src Pulse BP Resp SpO2 Oximetry Done On 05/31/10 0700 - - 98 ??F (36.7 ??C) Oral 83 132/85 mmHg 18 96 % RA 05/31/10 0432 - - 97.9 ??F (36.6 ??C) Oral 78 119/71 mmHg 18 96 % RA 05/31/10 0012 - - 97.8 ??F (36.6 ??C) Oral 92 152/97 mmHg 18 95 % RA 05/30/102014 - - - - 88 128/76 mmHg - - - 05/30/102000 - - 97.4 ??F (36.3 ??C) Oral 92 88/53 mmHg 16 98 % RA 05/30/101999 - - - - 89 88/52 mmHg - - - Gen: No acute distress, alert and oriented times 3, affect is flat and smiling today Lungs: Lungs clear bilaterally CV: Regular rate and rhythm Abd: Abdomen soft, nondistended, nontender, incision covered with dressing, clean, dry. Extremities: edema minimal with compression stockings in place Neuromuscular: UE 5/5 LE 0/5. no spasms noted, no abd spasms. No leg spasms. Tone joann 0/5 in BLE. No clonus Sensation absent LT below T7 Patient Stool in the past 24 hrs: Stool 05/31/10 0800 Incontinent;Large;Soft 05/31/10 0221 Incontinent;Large;Soft Labs: Lab Results Component Value Date/Time ??? INR 1.4 05/31/10 10:54 AM ??? INR 3.0 05/22/10 12:05 PM ??? SODIUM 136 05/30/10 12:28 PM ??? K 3.4* 05/30/10 12:28 PM ??? BUN 19 05/30/10 12:28 PM ??? CREATININE 1.11 05/30/10 12:28 PM ??? GLUCOSE 85 05/30/10 12:28 PM ??? HGB 10.5* 05/30/10 12:28 PM ??? 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 Had replacement of the baclofen pump catheter on 05/09. Patient readmitted 05/26/10 and underwent ITB pump removal on 05/[address] Baron due to ITB infection. Patient has been stable post-operatively with no signs of baclofen withdrawal. Plan: Will remain on current dose of baclofen 10mg TID and f.up with his primary rehab MD. He is welcome to f/up in our clinic. Recommend to continue oral Baclofen 10mg TID then, after PMR f/up taper off slowly. He may still need a low dose of 5mg BID or may need it prn for spasms. No need for oral valium. They will f/up with his rehab MD for neurontin taper. No current paresthesias or dysesthesias F/up with his Urologist for SCI neurogenic bladder f/up (they have made appointment and will f/up) Discussed with patient and . Total time: 25min. Counseling and Coordination time: 20min. Martha South MD --- End of Report --- Skewer Up, Lucy Clemente - 05/31/2010 10:20 AM CDT [facility] NeuroSurgery Progress Note Pt doing well today, denies increased muscle spasms or other pain/discomfort. Vitals Temp (24hrs), Min:97.4 ??F (36.3 ??C), Max:98.2 ??F (36.8 ??C) No Data Recorded BP 132/85 Pulse 83 Temp(Src) 98 ??F (36.7 ??C) (Oral) Resp 18 Ht 5' 10 (1.778 m) Wt 97.523 kg (215 lb) SpO2 96% Exam Laying in bed comfortably Patient is awake/alert and answers questions appropriately. Movement: Moves BUE to command. Labs Lab Results Component Value Date/Time ??? SODIUM 136 05/30/10 12:28 PM ??? HGB 10.5* 05/30/10 12:28 PM ??? PROTIME 20.1* 05/26/10 8:12 AM ??? INR 1.7 05/26/10 8:12 AM ??? INR 3.0 05/22/10 12:05 PM ??? CSFRBC 81800 05/26/10 10:30 AM ??? CSFRBC 97513 05/26/10 10:30 AM ??? CSFWBC 318* 05/26/10 10:30 AM ??? CSFWBC 352* 05/26/10 10:30 AM ??? CSFLYMPH 9 05/26/10 10:30 AM ??? CSFLYMPH 15 05/26/10 10:30 AM ??? CSFGLUCOSE 25* 05/26/10 10:30 AM ??? CSFPROTEIN 248* 05/26/10 10:30 AM Imaging No new imaging results Assessment 65 yo male s/p baclofen pump removal on 05-29-[address] Baron Plan Pt doing well PICC line being placed now IV Vanco x 10 days Will start coumadin today, INR today SQ lovenox BID Ok to d/c home today if IV abx plan set up Lucy Parker PA-C --- End of Report --- Nakita Dwyer RN - 05/31/2010 3:08 AM CDT [facility] Progress Note (Nursing) Identify/Problem(s): Comfort/pain Desired Outcome(s): Pt will have relief from pain. Evaluation: Pt c/o MORAN, medicated with tylenol with good relief. Pt turned with assistx2-3, was incontinent of large BM on NOCS. Pt denies any spasms. Surgical sites remain intact. Plan: Monitor comfort/pain level and treat prn. Discussed plan of care with patient. Nakita Dwyer RN --- End of Report --- Milo Salinas RN - 05/30/2010 10:18 PM CDT [facility] Progress Note (Nursing) Identify/Problem(s): Post Op Status Desired Outcome(s): Will have optimal surgical recovery. Evaluation: VSS, alert, oriented X4, and afebrile. No change in neuro functions noted. Surgical dressings are C/D/I and flat, no hematoma noted. Denies any discomfort all shift, repositioned frequently to maintainintact skin integrity and to keep him comfortable. Has his at the bedside, very helpful. Green is patent with good output. Bowels are active in all quadrants. Plan: Will continue with plan of care. Milo Salinas RN --- End of Report --- Britni Huerta PharmD - 05/30/2010 3:54 PM CDT [facility] Clinical Pharmacy Initial Kinetics Note Assessment: Jie Cullen, [id number], is a 65 yr year old male started on vancomycin 2g iv q24h for [employer] coverage s/p baclofen pump removal due to infection Data: Last Height: 5' 10 (177.8 cm) Last Wt - Scale: 215 lb (97.523 kg) [place] Body Weight: 73 kg Dosing Weight: 83 kg Last Temp: 97.5 ??F (36.4 ??C) Temp (24hrs), Min:97.5 ??F (36.4 ??C), Max:98.1 ??F (36.7 ??C) Lab Results Component Value Date/Time ??? WBC 7.0 05/30/10 12:28 PM ??? CREATININE 1.11 05/30/10 12:28 PM Estimated CrCl = 69.4ml/min The estimated kd = 0.0620 1/hour and t1/2 = 11 hours. Recommendations: Change vanco to 1.5g iv q12h for goal 15-20 mg/L. pt's creatinine up to 1.1 baseline <1.0. Will check trough level before 3rd dose and continue to follow. Britni Huerta PharmD Pager Number: [phone] --- End of Report --- Tania Brantley - 05/30/2010 2:59 PM CDT [facility] Care Management Sound Mixer Initial Assessment Admission Date/Time: 05/26/2010 7:05 AM Attending MD: Maurice Baron Data Jie Cullen was referred to this Sound Mixer for discharge planning. Chart reviewed, discussed with interdisciplinary team, as well as with patient and family. 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 Insurance: Payor: MEDICARE PART B ONLY [id number] Plan: MEDICARE PART B ONLY Product Type: Medicare Current Living Situation: Patient lives with their spouse. Support System: family and friends Services Involved: Home PT through [facility] in [place]. Ph: and Fax: Additional Data: Pt's primary MD is Dr. Arjun [facility]han at the [facility] Coordination of Care and Referrals: Provided patient/family with options for dc planning. Barriers to Discharge: patient continues to require acute medical care Assessment Pt is very well known to me from his previous recent admissions. He lives with his in a single level home without steps. Pt is wheelchair bound. He has a manual wc as well as a motorized wc. Pt has assist from and with sliding board for transfers. He also has a round pole attached to his bedthat he uses to change positions while in bed and to assist to a sitting position. Pt self caths andis on a bowel program. works about three hours per day, otherwise she is home with pt. Pt was fairly independent with upper extremities once he is up in his chair. Has become somewhat weaker with past two hospitalizations. Discussed plan of care with ISMAEL Iniguez nurse. Seeking ID consult for emperic IV abx given pt's csfstill looks infected. Pt and are aware pt will likely need IV abx at time of dc. I did speak with Dr. Tang who is seeing pt in consult. He will give me his recommendations when he is able. Pt does not have coverage through his insurance for home IV infusion. He would, however, have coverage ifdone in clinic. Previous admission it was thought pt could go into the ER at the [address] iv infusions. I had spoken with warehouse person in the ED at hospital who told me it is possible for them to provide this service for pt, but they wound need the orders to come from pt's primary MD. I attempted to phone pt's primary and she as well as her nurse are offtuesdays. I had to leave with request for call back in am. If I don't receive call back in am,I will try again. Will update pt in am as well. Dr. Tang has since made recommendations for IV vanco, but unsure if it will be daily or q12 hrs. Will need to see what [facility] can provide for pt. Pt very reluctant to tcu in past, but this may need to be option as well. Will follow up withtomer BEVERLY, NS staff, ID, and pt/ tomorrow to finalize more concrete dc plan. Call with questions. Plan Anticipated Discharge Date: 06/01 Anticipated Discharge Plan: home with outpt iv abx vs tcu Plan for Follow Up: in am Report completed by Tania Brantley RN, Pager Number [phone] --- End of Report --- Martha Thomas - 05/30/2010 1:24 PM CDT [facility] PM&R Progress Note () Date of service: 05/30/2010 Diagnosis: Encounter Diagnoses Code Name Primary? 43430 CAREPLAN: BACLOFEN ??? 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 781.0AM Spasticity Paraplegia and s/p Baclofen pump removal. Patient underwent ITB system and catheter removal On 05/29/2010. Has not had any spasms, and no increased pain or discomfort. Denies any abd spasms. No abdominal pain, no leg pain or increased tone. No changes in sensation or paresthesias. He is hoping to have a BM . Denies any pain in the back area. SUBJECTIVE: No new problems, see above . OBJECTIVE: Patient Vital Signs in the past 24 hrs: Height Wt - Scale Temp Temp src Pulse BP Resp SpO2 Oximetry Done On 05/30/10 1123 - - 97.5 ??F (36.4 ??C) Oral 87 130/86 mmHg 16 97 % RA 05/30/10 0733 - - 98.1 ??F (36.7 ??C) Oral 86 120/66 mmHg 16 94 % RA 05/30/10 0328 - - 98 ??F (36.7 ??C) Oral 88 132/72 mmHg 18 98 % O2 05/29/10 2331 - - 98.1 ??F (36.7 ??C) Oral 85 115/68 mmHg 16 97 % O2 05/29/102217 - - - - 91 108/66 mmHg 18 97 % O2 05/29/102019 - - - - 93 110/71 mmHg 18 97 % O2 Gen: No acute distress, alert and oriented times 3, affect is flat Lungs: Lungs clear bilaterally CV: Regular rate and rhythm Abd: Abdomen soft, nondistended, nontender Extremities: compression stockings on. Minimal edema. Neuromuscular: w/chair locomotion. UE 5/5 LE 0/5. No spasms Tone joann 0/5 in BLE. No clonus Wound not examined. Data: Results for orders placed during the hospital encounter of 05/26/10 (from the past 24 hour(s)) BASIC METABOLIC PANEL Component Value Range ??? BUN 19 7-20 (mg/dl) ??? SODIUM 136 135-145 (mmol/L) ??? POTASSIUM 3.4 (*) 3.5-5.1 (mmol/L) ??? CHLORIDE 99 98-107 (mmol/L) ??? CO2 31 (*) 22-30 (mmol/L) ??? GLUCOSE 85 70-180 (mg/dl) ??? CREATININE 1.11 0.66-1.25 (mg/dl) ? ? GFR, ESTIMATED >60.00 >60- (ml/min/1.73m2) ? ? GFR EST IF >60.00 >60- (ml/min/1.73m2) ??? CALCIUM 8.3 (*) 8.4-10.2 (mg/dl) ??? ANION GAP (CALC.) 6 3-11 (mmol/L) HEMOGRAM/PLTS Component Value Range ??? WBC 7.0 4.0-11.0 (k/ul) ??? RBC 3.63 (*) 4.5-5.9 (M/ul) ??? HGB 10.5 (*) 13.5-17.5 (g/dl) ??? HCT 30.9 (*) 41.0-53.0 (%) ??? MCV 85.1 80-100 (fl) ??? MCH 28.9 26-34 (pg) ??? MCHC 34.0 32-36 (g/dl) ??? RDW 15.1 (*) 11.5-14.5 (%) ??? PLTS 196 150-450 (k/ul) ??? 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 Had replacement of the baclofen pump catheter on 05/09. Patient re admitted 05/26/10 and underwent ITB pump removal on 05/[address] Baron due to infection. Patient has tolerated procedure with no signs of baclofen withdrawal. Plan: 1. Discussed with patient and . Will decrease oral baclofen from 20mg TID to 10mg TID and monitor response and/or increase pain, LE or abd spasms. Cont with PRN IV valium and ativan. 2. Consider taper of neurontin if no neuropathic pain symptoms. This can be done in the outpatient. 3. Please contact me if questions. Will follow in am. Total time: 25min. Counseling and Coordination time: 20min. Martha South MD [phone] --- End of Report --- Skewer Up, Lucy Clemente - 05/30/2010 1:21 PM CDT [facility] NeuroSurgery Progress Note Pt is doing well. Denies any increase in muscle spasms, denies any increased pain or discomfort. Vitals Temp (24hrs), Min:97.5 ??F (36.4 ??C), Max:98.1 ??F (36.7 ??C) Mean Arterial Pressure (MAP) Av MM HG Min: 77 MM HG Max: 89 MM HG Exam Laying in bed comfortably Patient is awake/alert and answers questions appropriately. Movement: Moves BUE to command. Dressing CDI Labs Lab Results Component Value Date/Time ??? SODIUM 136 05/30/10 12:28 PM ??? HGB 10.5* 05/30/10 12:28 PM ??? PROTIME 20.1* 05/26/10 8:12 AM ??? INR 1.7 05/26/10 8:12 AM ??? INR 3.0 05/22/10 12:05 PM ??? CSFRBC 12659 05/26/10 10:30 AM ??? CSFRBC 72212 05/26/10 10:30 AM ??? CSFWBC 318* 05/26/10 10:30 AM ??? CSFWBC 352* 05/26/10 10:30 AM ??? CSFLYMPH 9 05/26/10 10:30 AM ??? CSFLYMPH 15 05/26/10 10:30 AM ??? CSFGLUCOSE 25* 05/26/10 10:30 AM ??? CSFPROTEIN 248* 05/26/10 10:30 AM Imaging No new imaging results Assessment 65 yo male s/p baclofen pump removal on 05-29-[address] Baron Plan Discussed case with Dr. Tang from infectious disease, he will most likely recommend another course of IV abx for empiric treatment Continue baclofen and prn valium for muscle spasms, titrated per PM&R Potassium 3.4 will add 20 meq BID of potassium chloride Lucy Parker PA-C --- End of Report --- Archana Pace - 05/30/2010 12:28 PM CDT [facility] Minister Assistant Department Progress Note Hvac Service Tech Notes: Initial assessment for spiritual and emotional support needs for pt/family during this hospitalization. Jeff and his Heather are known to me from several previous hospitalizations. They shared with me events of this current hospitalization and their hopes that the infection will clear now that the baclofen pump has been removed and their hope that it might not need to be replaced. Jeff appears comfortable at this time, was sleeping for part of the visit. They both appear hopefuland encouraged that there might be a light at the end of this tunnel. Jeff has been in/out of the hospital all summer long. They have a wonderful support system; have great internal and external coping skills and resources. They are appreciative of manager supplier and box maker paperboard visits and prayers. I offered prayers for healing and strength. Plan: Minister Assistant will continue following for ongoing spiritual and emotional support to pt/family. Report Completed by: Archana Pace, [facility] Staff Hvac Service Tech --- End of Report --- Malathi Domingo RN - 05/30/2010 10:58 AM CDT [facility] Progress Note (Nursing) Identify/Problem(s): comfort Desired Outcome(s): Patient will be comfortable Evaluation: Patient denies pain or spasms. Turned throughout shift. Patient sat at edge of bed this am, felt dizzy. Patient tried sitting up again later x2 and denies dizziness. Bowel regimen done, patient had small bm. Patient up to wheelchair with assist 2-3, using transfer belt and sliding board. Dressing CDI.Old incision site red but intact. Warm to touch. Tolerating diet. Adequate UO. Plan: Continue to monitor. Medicate prn for pain or spasms. Encourage activity and monitor tolerance. Discussed plan of care with patient. Malathi Domingo --- End of Report --- AT Malathi Domingo RN - 05/30/2010 9:35 AM CDT Problem: Falls Risk Goal: Moderate Risk (5-10): Fall Prevention I applied all active moderate risk falls prevention interventions. Radha Long RN - 05/30/2010 3:45 AM CDT [facility] Progress Note (Nursing) Identify/Problem(s): Post op, comfort Desired Outcome(s): Patient will remain comfortable and stable Evaluation: Patient is sleeping well between checks, vss, denies pain or nausea. Turned per pt request, q 2-3 hours. Green with good urine output. Dressings abdomen and back remain clean dry and intact. Upper backhealed incision is warm, red but intact. Patient and his are expressing concern about spinal fluid having blood in it, wondering what this is all about. Patient is denying spasms or need of meds. Plan: Keep patient and his informed as able, monitor post op vs, incisions, medicate prn for pain or spasms. Discussed plan of care with patient. Radha Long RN --- End of Report --- Radha Long RN - 05/30/2010 3:44 AM CDT Problem: Falls Risk Goal: Moderate Risk (5-10): Fall Prevention I applied all active moderate risk falls prevention interventions. Milo Salinas RN - 05/29/2010 9:48 PM CDT [facility] Progress Note (Nursing) Identify/Problem(s): Post OP Status Desired Outcome(s): Will have optimal surgical recovery. Evaluation: VSS, alert, oriented X4, and afebrile. No change in neuro functions noted. Surgical dressings are C/D/I and flat, no hematoma noted. Denies any discomfort all shift, repositioned frequently to maintainintact skin integrity and to keep him comfortable. Has his at the bedside, very helpful. Plan: Continue to monitor. Milo Salinas RN --- End of Report --- Tania Cerda RN - 05/29/2010 6:58 PM CDT [facility] Progress Note (Nursing) Identify/Problem(s): Post op status Desired Outcome(s): Will be stable Evaluation: VSS, patient denies pain, patient tolerating clear liquid diet. Dressing to abdomen and back are dryand intact, green patent. at bedside, no other complaints at this time. Plan: Continue to monitor. Tania Cerda, VALERIE --- End of Report --- Tania Brantley - 05/29/2010 2:26 PM CDT [facility] Sound Mixer Progress Note Pt has gone to OR. Briefly met with . Pt well known to me from previous admissions. Informed Lazara would attempt to meet with them tomorrow. She feels pt doing better and in pretty good sprits. Report completed by Tania Brantley RN, Pager Number [phone] --- End of Report --- Garth Rodriguez RN - 05/29/2010 11:40 AM CDT [facility] Nursing Pre-Op Note Admission Date/Time: 05/26/2010 7:05 AM Time of transport to the Operating Room: 1140 Transported by: Litter/cart Pre-Op checklist complete?: Yes Report Completed by: Romelia Rodriguez RN --- End of Report --- Lisy Durand RN - 05/29/2010 3:15 AM CDT [facility] Progress Note (Nursing) Identify/Problem(s): Comfort Desired Outcome(s): Patient will feel comfortable. Evaluation: Patient denies pain; Repositioned to his side. Made comfortable in bed. Instructions for NPO post midnoc reinforced. Green catheter in place with clear yellow urine. Hibiclens done. Patient psychologically and mentally ready for the surgical procedure today as stated. at bedside. Plan: Monitor patient for any signs of pain and medicate as needed. Discussed plan of care with patient. Lisy Durand RN --- End of Report --- Lisy Durand RN - 05/29/2010 3:09 AM CDT Problem: Falls Risk Goal: Low Risk (0-4): Fall Prevention I applied all active low risk falls prevention interventions. AT Sarita Bardales RN - 05/28/2010 10:45 PM CDT [facility] Progress Note (Nursing) Identify/Problem(s): Comfort Desired Outcome(s): Pt will be comfortable Evaluation: Pt comfortable with position changes. No prn pain medication requested. Sat on the edge of the bed and ate well for supper. Plan: Baclofen pump to be removed tomorrow. Discussed plan of care with patient and family. Sarita Bardales RN --- End of Report --- arita Abad RN - 05/28/2010 6:37 PM CDT Problem: Falls Risk Goal: Moderate Risk (5-10): Fall Prevention I applied all active moderate risk falls prevention interventions. Ozzy Dietz RN - 05/28/2010 3:20 PM CDT Problem: Falls Risk Goal: High Risk (11+): Fall Prevention I applied all active high risk falls prevention interventions. Yomi Miller MD - 05/28/2010 1:46 PM CDT Pt seen with Dr. Baron Pt in good spirits, no c/o Hb 10.3 after transfusion Plan Appreciate PM&R assistance to continue titrating down intrathecal baclofen Plan for pump removal Saturday Ozzy Dietz RN - 05/28/2010 10:30 AM CDT [facility] Progress Note (Nursing) Identify/Problem(s): Comfort Desired Outcome(s): Pt will be comfortable Evaluation: Pt alert & oriented x4. Denies pain. Pt being weaned down on baclofen pump dose since 05/26. Pt reports no episodes of spasticity. LP site dry & intact. Hgb 10.3 in AM after yesterdays blood transfusion. Neuro & CMS intact to pt's baseline. BS +, regular diet & tolerated breakfast well.He said he didn't feel like eating lunch. Lunch tray left in pt's room. Pt needs encouragement to eat. Chronic green in place, patent & draining large amount of clear urine. Pt had full bath/showerwith hibiclens. Pt passed out during shower & woke up in the process of getting him back in bed.Vital signs right after the episode BP 115/73 Pulse 91 Temp(Src) 97.6 ??F (36.4 ??C) (Oral) Resp 18 SpO2 99% RA. Pt drowsy/sleepy most of the shift. Pt needs help turning every 2 hours. Plan: Continue to monitor. Ozzy Dietz RN --- End of Report --- Cristine Henson - 05/28/2010 10:23 AM CDT 05/28/2010 S: Doing well, no itching, few spasms. Less n/v but decreased appetite. No new concerns. LBM yesterday. O: Blood pressure 155/87, pulse 82, temperature 99 ??F (37.2 ??C), temperature source Oral, resp. rate 17, height 5' 10 (1.778 m), weight 97.523 kg (215 lb), SpO2 85%. Gen: Asleep but arousable, NAD, oriented x3. Appears comfortable. Respirations unlabored Abd s/nt/nd. ITB pump in RLQ. Ext WWP, tone joann 1/5 in BLE. No clonus. TEDs and SCDs in place. Procedure: Pump interrogation and reprogramming: Dose prior to reprogrammin mcg/day simple continuous, concetration 1000 mcg/mL. Dose following reprogrammin mcg/day simple continuous. [place] volume 35.7mL, Alarm date 07/09/2011. 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 Had replacement of the baclofen pump catheter on 05/09. Patient readmitted 05/26/10 for possible infected ITB pump for removal. Tolerating ITB wean well. Plan: 1. On oral baclofen 20mg TID. May increase to 20mg QID. 2. Continue to taper intrathecal baclofen daily, has tolerated decreases of 43 mcg, so continued with that today. Today dose was decreased from 127mcg/day to 84 mcg/day simple continuous, decrease of approx. 33% 3. Use oral baclofen and valium for prevention of withdrawal symptoms. 4. Monitor respiratory status closely. 5. Contact Dr. Cristine Henson from PMR at [phone] if questions or if displaying symptoms of withdrawal (markedly increased muscle tone, itching, decrease in seizure threshold). 6. Recommend continuing home bowel program of enemeez every other day, next due 05/29, if able to schedule prior to surgery. Total time: 25. Counseling and Coordination time: 20. Mónica Saldana - 05/28/2010 6:28 AM CDT [facility] Progress Note (Nursing) Identify/Problem(s): Comfort Desired Outcome(s): Pt will state pain is tolerable. Evaluation: No prn's given for pain or nausea throughout shift. Pt slept comfortably. BP 152/85 Pulse 88 Temp(Src) 97.9 ??F (36.6 ??C) (Oral) Resp 16 Ht 5' 10 (1.778 m) Wt 97.523 kg (215 lb) SpO2 95% Plan: Continue to monitor and give prn medications for pain relief. Mónica Saldana RN --- End of Report --- Mónica Saldana - 05/28/2010 3:40 AM CDT Problem: Falls Risk Goal: Moderate Risk (5-10): Fall Prevention I applied all active moderate risk falls prevention interventions. Sarita Bardales RN - 05/27/2010 9:38 PM CDT Problem: Falls Risk Goal: Moderate Risk (5-10): Fall Prevention I applied all active moderate risk falls prevention interventions. AT Sarita Bardales RN - 05/27/2010 8:57 PM CDT [facility] Progress Note (Nursing) Identify/Problem(s): Comfort Hgb Desired Outcome(s): Pt will be comfortable Hgb will improve Evaluation: Pt comfortable while being weaned down on Baclofen pump dose. Denies any increased spasticity. 2 units PRBC's given with no complications. Plan: Continue to monitor. Discussed plan of care with patient and family. Sarita Bardales RN --- End of Report --- Yomi Miller MD - 05/27/2010 6:38 PM CDT Pt seen with Dr. Baron Pt in good spirits, no c/o Hb 8.5 Plan Transfuse [address] Baron Appreciate PM&R assistance to continue titrating down intrathecal baclofen Plan for pump removal Saturday Cristine Henson - 05/27/2010 1:17 PM CDT [facility] PM&R Progress Note () Date of service: 05/27/2010 Allergies:Zaroxolyn and Oxycodone Current Medications: Current hospital medications Medication Dose Route Frequency ??? acetaminophen (aka TYLENOL) tablet 325-650 mg 325-650 mg Oral Q4H PRN ??? atorvastatin (aka LIPITOR) tablet 40 mg 40 mg Oral 2000 ??? baclofen (aka LIORESAL INTRATHECAL) intrathecal 100 mcg 100 mcg Intrathecal Continuous ??? baclofen (aka LIORESAL) tablet 20 mg 20 mg Oral TID ??? citalopram (aka CELEXA) tablet 40 mg 40 mg Oral Daily ??? cyclobenzaprine (aka FLEXERIL) tablet 10 mg 10 mg Oral TID PRN ??? docusate sodium (aka ENEMEEZ) enema 283 mg 1 Enema Rectal DAILY PRN ??? doxycycline hyclate (aka VIBRA-TABS) tablet 100 mg 100 mg Oral BID ??? enoxaparin (aka LOVENOX) injection 100 mg 100 mg SC Daily ??? gabapentin (aka NEURONTIN) capsule 200 mg 200 mg Oral TID ??? hydrocodone-acetaminophen (aka VICODIN,LORTAB) 5-500 MG tablet 1-2 Tab 1-2 Tab Oral Q4H PRN ??? lactulose oral liquid 20 g 20 g Oral BID PRN ??? LORazepam (aka ATIVAN) tablet 1 mg 1 mg Oral TID ? ? NaCl PF 0.9% injection 3-5 mL 3-5 mL IV PRN after every IV medication & lab draw ??? polyethylene glycol 3350 (aka GLYCOLAX) powder 17 g 17 g Oral Daily ??? senna (aka SENOKOT) tablet 17.2 mg 2 Tab Oral BID Subjective: No symptoms of ITB withdrawal, tone in LE's low, very infrequent spasms. Has nausea and some emesis this afternoon after taking lactulose and sitting up. Objective: Patient Vital Signs in the past 48 hrs: Height Wt - Scale Temp Temp src Pulse BP Resp SpO2 Oximetry Done On 05/27/10 1100 - - 97.5 ??F (36.4 ??C) Oral 100 103/60 mmHg 17 94 % RA 05/27/10 0700 - - 98.1 ??F (36.7 ??C) Axillary 98 146/73 mmHg 18 95 % RA 05/27/10 0510 - - 97.6 ??F (36.4 ??C) Axillary 97 136/79 mmHg 18 96 % RA 05/26/10 2300 - - 97.5 ??F (36.4 ??C) Oral 91 114/56 mmHg 18 97 % RA 05/26/10 1520 - - 98.7 ??F (37.1 ??C) Oral 109 134/87 mmHg 18 96 % RA 05/26/10 1420 - - 98 ??F (36.7 ??C) Oral 101 143/93 mmHg 18 97 % RA 05/26/10 1316 - - 97.8 ??F (36.6 ??C) Oral 96 141/94 mmHg 18 97 % RA 05/26/10 1245 - - 97.8 ??F (36.6 ??C) Oral 99 135/84 mmHg 18 100 % RA 05/26/10 1214 - - - - 93 143/90 mmHg 18 97 % RA 05/26/10 1145 - - 97.5 ??F (36.4 ??C) Oral 96 158/97 mmHg 18 95 % RA 05/26/10 0800 5' 10 (1.778 m) 97.523 kg (215 lb) 96 ??F (35.6 ??C) Tympanic 96 125/81 mmHg 16 100 %RA Gen: alert and oriented times 3, affect is normal, sitting in his wheelchair producing small emesis,appears more comfortable after that. No spasms noted. Respirations unlabored Abd: ITB in RLQ Extremities: Tone low, LUIS hose in place. Neuromuscular: paraparesis Stool: Patient Stool in the past 120 hrs: Stool 05/26/10 1712 None Green Output: Patient Urine Catheter Output (mL) in the past 24 hrs: Urine Catheter Output (mL) 05/27/10 0518 1150 ML 05/26/10 2200 1000 ML 05/26/10 1433 1300 ML Currently on Diet: Regular Liquid Consistency: Thin Lab Results Component Value Date/Time ??? GLWB 138 7/2/10 9:26 PM ??? GLWB 142 05/12/10 5:32 PM ??? GLWB 101 05/12/10 12:16 PM ??? GLWB 129 05/12/10 8:17 AM ??? GLWB 119 05/11/10 6:53 PM ??? GLWB 133 05/11/10 12:03 PM ??? GLWB 111 05/11/10 8:09 AM ??? GLWB 129 05/10/10 9:32 PM Labs: Results for orders placed during the hospital encounter of 05/26/10 (from the past 24 hour(s)) CREATININE / GFR Component Value Range ??? CREATININE 1.10 0.66-1.25 (mg/dl) ? ? GFR, ESTIMATED >60.00 >60- (ml/min/1.73m2) ? ? GFR EST IF >60.00 >60- (ml/min/1.73m2) HEMOGRAM/PLTS Component Value Range ??? WBC 7.2 4.0-11.0 (k/ul) ??? RBC 2.96 (*) 4.5-5.9 (M/ul) ??? HGB 8.5 (*) 13.5-17.5 (g/dl) ??? HCT 25.1 (*) 41.0-53.0 (%) ??? MCV 84.6 80-100 (fl) ??? MCH 28.6 26-34 (pg) ??? MCHC 33.8 32-36 (g/dl) ??? RDW 15.3 (*) 11.5-14.5 (%) ??? PLTS 282 150-450 (k/ul) ??? MPV 7.4 6.5-10.0 (fl) PROCEDURE NOTE: Procedure title: ITB pump interrogation and reprogramming. Current settings: Baclofen Concentration 1,000 mcg/ml on simple continuous mode Dose: last dose on 05/26 was 170.2 mcg/day. Baclofen dose was decreased by 25% and new pump settings are: 1. Simple continuous mode 2. 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 Had replacement of the baclofen pump catheter on 05/09. Patient re admitted 05/26/10 for possible infected ITB pump for removal. Tolerating ITB wean well. Plan: 1. On oral baclofen 20mg TID. May increase to 20mg QID. 2. Continue to taper intrathecal baclofen daily over the weekend by 20-25%. Today dose was decreasedfrom 170mcg/day to 127 mcg/day simple continuous, decrease of 25% 3. Use oral baclofen and valium for prevention of withdrawal symptoms. 4. Monitor respiratory status closely. 5. Contact Dr. Cristine Henson from PMR at [phone] if questions or if displaying symptoms of withdrawal (markedly increased muscle tone, itching, decrease in seizure threshold). Total time: 25. Counseling and Coordination time: 20. Cristine Henson MD --- End of Report --- Ozzy Dietz RN - 05/27/2010 12:40 PM CDT [facility] Progress Note (Nursing) Identify/Problem(s): Comfort Desired Outcome(s): Pt will be comfortable Evaluation: Pt alert & oriented x4. Denies pain. Weaning baclofen dose for pump removal Thursday 05/31. Green in place, patent & draining appropriately. LP site dry & intact. On bowel program. Scheduled bowel meds given & prn lactulose & enemeez enema given with good results/large semi formed BM. Hgb 8.5 this AM after yesterdays blood transfusion. Blood transfusion ordered & started/1st blood bag started @ 1415. Patient Vitals in the past 8 hrs: BP Temp Temp src Pulse Resp SpO2 Height Wt - Scale 05/27/10 1525 128/77 mmHg 97.3 ??F (36.3 ??C) Oral 86 20 100 % - - 05/27/10 1430 116/78 mmHg 97.9 ??F (36.6 ??C) Oral 91 17 98 % - - 05/27/10 1415 125/77 mmHg 98.1 ??F (36.7 ??C) Oral 89 18 99 % - - 05/27/10 1100 103/60 mmHg 97.5 ??F (36.4 ??C) Oral 100 17 94 % - - Plan: Continue to monitor. Ozzy Dietz RN --- End of Report --- Arjun Walters RN - 05/26/2010 10:57 PM CDT [facility] Progress Note (Nursing) Identify/Problem(s): comfort Desired Outcome(s): Comfort will be maximized while weaning from baclofen Evaluation: MRI done this evening. Baclofen pump turned back after procedure. Patient denies any increased spasticity. Feeling better overall after receiving 2 units blood prior to lumbar puncture. LP site dry andintact. Slight buldging and firmness at lower left back incision where baclofen catheter placed. Plan: Discussed plan of care with patient and family. Continue to assess condition. Arjun Walters RN --- End of Report --- Arjun Mancuso RN - 05/26/2010 6:39 PM CDT [facility]. MD Notified Note Name of MD notified: Yomi Miller Time of MD notification: 1800 hours and 30 minutes Reason: Should patient received enoxaparin injection tonight since he had LP today Response: Patient should receive enoxaparin tonight. Arjun Walters RN --- End of Report --- Arjun Mancuso RN - 05/26/2010 5:56 PM CDT Problem: Falls Risk Goal: Moderate Risk (5-10): Fall Prevention I applied all active moderate risk falls prevention interventions. Roula Zuniga X - 05/26/2010 2:30 PM CDT [facility] Clinical Pharmacy Medication Reconciliation Note Medication History: per [facility] Medications marked Taking as of 05/26/10 encounter (Hospital Encounter) with MAURICE BARON: acetaminophen (AKA TYLENOL) 325 MG tablet Take 1-2 Tabs by mouth every 4 hours as needed for Pain. atorvastatin (LIPITOR) 40 MG tablet Take 1 Tab by mouth daily. baclofen (AKA LIORESAL) 10 MG tablet Take 1 Tab by mouth. Wean schedule:Take 10mg three times a day for 6 doses, [id number] twice a day for 4 doses, [id number] daily for 2 days, [id number] twice daily NEEDED BACLOFEN IT 220 mcg by Intrathecal route daily. citalopram (AKA CELEXA) 40 MG tablet Take 40 mg by mouth daily. cyclobenzaprine (AKA FLEXERIL) 10 MG tablet Take 1 Tab by mouth three times a day as needed for Muscle Spasms. docusate sodium (AKA ENEMEEZ) 283 MG enema Insert 5 mL rectally daily as needed. PT. USES ENEMA EVERY OTHER DAY. doxycycline hyclate (AKA VIBRA-TABS) 100 MG tablet Take 1 Tab by mouth two times a day. enoxaparin (AKA LOVENOX) 100 mg/mL Inject 1 mL subcutaneously every 24 hours. --NOT ORDERED ferrous sulfate 325 (65 FE) MG tablet Take 1 Tab by mouth daily with breakfast. Gabapentin (AKA NEURONTIN) 100 MG tablet Take 2 Tabs by mouth three times a day.--ORDERED FOR BID hydrocodone-acetaminophen (AKA VICODIN,LORTAB) 5-500 MG tablet Take 1-2 Tabs by mouth every 4 hours as needed for Pain. lactulose 10 GM/15ML solution Take 30 mL by mouth two times a day as needed. For constipation LORazepam (AKA ATIVAN) 0.5 MG tablet Take 2 Tabs by mouth three times a day. OMEGA-3 FATTY ACIDS OR Take 1 Cap by mouth daily. --NOT ORDERED povidone-iodine (AKA BETADINE) 10 % external solution Apply topically two times a day. senna (AKA SENOKOT) 8.6 MG tablet Take 2 Tabs by mouth daily. USES 3 TABS IN THE AM & 2 TABS AT HS EVERY OTHER DAY.--ORDERED FOR 2 TABS BID TRIMETHOPRIM OR Take 100 mg by mouth daily. warfarin (AKA COUMADIN) 5 MG tablet Take 1 Tab by mouth daily. Adjust dose based on INR result as directed. --NOT ORDERED Medications Reviewed and Reconciled: Any medication adjustments made from patient's medication history regimen are appropriate for current hospitalization and medical condition. PHARMACIST NAME: Roula Lam Phone/Pager #: [phone] --- End of Report --- documented in this encounter Procedure Notes Maurice Baron - 07/12/2010 10:00 AM CDT DATE OF SURGERY: 05/26/2010 SURGEON: Maurice Baron MD BELL RINGER: None. ANESTHESIA: Local plus sedation. PREOPERATIVE DIAGNOSES: 1. History of recurrent epidermoid. 2. History of intrathecal baclofen pump for spasticity. 3. Postoperative meningitis for potentiallyinfected baclofen pump. POSTOPERATIVE DIAGNOSES: 1. History of recurrent epidermoid. 2. History of intrathecal baclofen pump for spasticity. 3. Postoperative meningitis for potentiallyinfected baclofen pump. PROCEDURE PERFORMED: Diagnostic lumbar puncture under fluoroscopy. INDICATION: The patient is a 65-year-old gentleman who has the above-mentioned diagnosis. He is being treated with antibiotics and comes today for a tap to decide whether we are going to in leave or remove the current pump system. PROCEDURE: Patient was placed in the lateral decubitus, right side up. The skin prep and drape in the usual sterile fashion. Fluoroscopy was brought onto the field. I could easily visualize interlaminar space at L3-L4. Then utilizing a 20-gauge spinal needle I advanced through the yellow ligament using an interlaminar approach at L3-L4 without difficulties. I advanced through the dural sac and obtained aggressive cerebrospinal fluid, which appeared a little bit turbid. We obtained samples in 4 different viles that were sent for cell count and differential, glucose and protein, gram stain and cultures. After the samples were obtained the spinal needle was removed, a Band-Aid was applied at the entry point. Procedure well tolerated, no apparent complication, needle and sponge counts correct and verified at the end of the case. EBL none. Maurice Baron MD jdh Dictated: 07/12/2010 10:00:55 Transcribed: 07/12/2010 22:40:18 Doc #: [id number] cc:Maurice Baron MD, Referring Provider 1 Page 1 Patient Name: JIE CULLEN INPATIENT OPERATIVE REPORT CONFIDENTIAL MEDICAL RECORD [address] [address] Page 1 Patient: JIE CULLEN Location: [facility] HPN: [id number] Admit Date: 05/26/2010 Date of : 1945 Discharge Date: 06/01/2010 Age: 65Y INPATIENT OPERATIVE REPORT Maurice Baron - 06/26/2010 5:19 PM CDT DATE OF SURGERY: 05/29/2010 STAFF SURGEON: Maurice Baron MD BELL RINGER: Lucy Parker, [facility] PREOPERATIVE DIAGNOSES: 1. 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 History of recent replacement of baclofenpump catheter. 2. Persistent meningitis. POSTOPERATIVE DIAGNOSES: 1. 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 History of recent replacement of baclofenpump catheter. 2. Persistent meningitis. NAME OF PROCEDURE PERFORMED: Removal of baclofen pump and intrathecal catheter. ANESTHESIA: General. EBL: 50 mL. INDICATION: The patient is an unfortunate 65-year-old man on whom I operated almost 2 months ago resecting a recurrent ependymoma of the thoracic spine that had been operated on 3 times before. Unfortunately, this patient had a postoperative quite delayed meningitis which was surprising. Nevertheless, he was treated with antibiotics. The problem here is that he had a baclofen pump placed previously for spasticity and of course protocol dictated that I remove the pump. In an attempt to avoid this wetreated him with antibiotics and then I replaced the intrathecal catheter with the hope that the infection had not spread to the pump itself. In followup the repeat LP shows persistently elevated cell count with elevated protein and decreased glucose suggestive of ongoing infectious process. Therefore, I have recommended removing the pump and the catheter. Fortunately, his spasticity has been better controlled with oral baclofen. PROCEDURE: Patient was anesthetized, intubated and placed in a lateral decubitus right side up. Skin prepped and draped in the usual sterile fashion. The previous incisions both of the back and the right subcostal region were cleaned. The field was prepped and draped in the usual sterile fashion. The incisions were then reopened. I exposed the intrathecal catheter and the anchor, removed these without difficulties. I then exposed the pump. We encountered an old hematoma around the pump, this was also removed. The pump was removed as well as the catheter and all of the anchors. I did put a Vicryl 2-0 stitch at the exit area of the catheter through the supra spinous ligament. The wounds were copiously irrigated and closed in layers using vertical 0 for the pump pocket, 2-0 for Ivan's, 3-0 subcutaneous, 4-0 subcuticular. Dermabond to skin. The wounds were dressed. The patient returns to his [facility] woken up, extubated and taken stable to [facility]. Procedure well tolerated with no apparent complication s. Needle and sponge counts correct and verified at the end of the case. EBL was approximately 25 mLor less. Maurice Baron MD kda Dictated: 06/26/2010 17:19:06 Transcribed: 06/27/2010 08:10:23 Doc #: [id number] cc:Maurice Baron MD, Referring Provider 1 Page 1 Patient Name: JIE CULLEN INPATIENT OPERATIVE REPORT CONFIDENTIAL MEDICAL RECORD [address] [id number] Page 1 Patient: JIE CULLEN Location: [facility] HPN: [id number] Admit Date: 05/26/2010 Date of : 1945 Discharge Date: 06/01/2010 Age: 65Y INPATIENT OPERATIVE REPORT Priti Robin RN - 05/31/2010 10:[address] [facility] PICC Line Insertion Procedure Note Singe Lumen PICC Site One Date of Service: 05/31/10 UNIVERSAL PROTOCOL: Procedure Location: S10 Condition: Elective Consent: Imformed Written Patient Identification: Verified Time Out: Performed Site Prep: Chloraprep Protective Barriers: Maximum Barriers Used including Handwashing, Sterile Gown, Gloves, Mask, Eye Protection & Cap PROCEDURE: Insert/Remove: Inserted Inserted By?: PICC Services Indication: Antibiotics Dietetic Aide: Power PICC Size (Setswana): 5 Length (cm): 46 CM Lot #: [id number] Location: Right or Left: Right Site: Basilic Dressing: Tegaderm w/antimicrobial patch ULTRASOUND GUIDED ACCESS. Priti Agudelo RN, CRNI --- End of Report --- Lucy Parker - 05/29/2010 3:28 PM CDT [facility] Brief Operative Progress Note Surgery Date: 05/29/2010 Primary Surgeon: Surgeon(s): Maurice Baron Assistants: Lucy Parker PA-C Post-op Diagnosis: BACLOFEN PUMP INFECTION Procedure: REMOVAL OF BACLOFEN PUMP EBL: 10 mL Complications / Findings: None/ see dictated operative note Plan: Transfer back to [address] [place] [address] Resume pre operative orders IV valium prn for baclofen withdrawal and increased muscle spasms Indications: I was asked by Dr. Baron to assist with surgery. I positioned and prepped the patient.I retracted soft tissue for operative exposure. I suctioned fluids. I provided traction for dissection. I helped with ligate blood vessels. I helped Dr. Baron identify and protect important structures. I sutured and bandaged the incision. The procedure was medically necessary for an integration assistant because Dr. Baron needed the operative exposure and assistance that I provided. This allowed him to safely and efficiently operate. It was also important that I help ligate blood vessels to maintain hemostasis and reduce the bleeding risk. The assistance that I provided reduced operative time which meant less general anesthetic for the patient. Lucy Parker PA-C --- End of Report --- [facility] ANESTHESIA, PROVIDER - 05/29/2010 12:00 AM CDT [facility] ANESTHESIA, PROVIDER - 05/29/2010 12:00 AM CDT [facility], [facility] - 05/29/2010 12:00 AM CDTAssociated Order(s): EKG IP; EKG IP [facility] ANESTHESIA, PROVIDER - 05/29/2010 12:00 AM CDT [facility] ANESTHESIA, PROVIDER - 05/29/2010 12:00 AM CDT [facility] ANESTHESIA, PROVIDER - 05/26/2010 12:00 AM CDT [facility] ANESTHESIA, PROVIDER - 05/26/2010 12:00 AM CDT [facility] ANESTHESIA, PROVIDER - 05/26/2010 12:00 AM CDT [facility] ANESTHESIA, PROVIDER - 05/26/2010 12:00 AM CDT documented in this encounter Consult Notes Stephan Anderson MD - 05/30/2010 11:24 AM CDTAssociated Order(s): INFECTIOUS DISEASE INPT CONSULT [facility]. Consultation Note () Date of service: 05/30/2010 Diagnosis: bacterial meningitis Admit Date/Time: 05/26/2010 7:05 AM Attending: Maurice Baron I was asked by Dr. Baron of Neurosurgery to see this patient to give recommendations regarding meningitis. Chief Complaint: Fever, headache and confusion History of Present Illness: Mr. 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 He had radical ependymoma resection on 04/11/2010 which went uneventfully. However was admitted to [facility] on 04/28 for spiking fever, chills. He was found to have inflammatory CSF changes, and CSF and seroma culture at the time was positive for Coag negative staph. He was treated with cefepime and vancomycin. On 05/09/2010 he also underwent revision of the baclofen intrathecal catheter. He was discharged on 05/12/2010 with oral bactrim. He did not tolerate bactrim with N/V and had only taken bactrim from 05/13-05/15. He was switched to doxycycline since 05/16/2010. Since discharge he has always had low grade fever and headache to 5/10, associated with decreased appetite. He was admitted to [facility] on 05/26/2010nd had CSF drain that day. CSF workup showed pleocytosis with predominant PMN and decreased glucose, but negative microbiology culture. On 05/29/2010 he had the baclofen catheter removed. He received dose of vancomycin prior to both procedure and was continued on doxycycline. Since the admission, the patient's confusion and fever has resolved. We were consulted for abx management. Past Medical History: Past Medical History Diagnosis Date ??? 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 Glasgow [facility] in 05/2000. However resection was incomplete due to encasement of nerves. XRT was planned but ependymoma quickly regrew & he underwent re-resection in 07/2000. 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 He again underwent resection, this time followed by radiation therapy. This controlled the tumorf ??? 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 had non occlusive DVT of bilat LEs on dopplers 04/2010 ??? 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 HTN (Hypertension) ??? Dyslipidemia ??? CAREPLAN: BACLOFEN 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 Past Surgical History Procedure Date ??? Appendectomy ??? Vasectomy* ??? Turp incl contrl postop bleed cmpl ??? Total knee replacement (09782) right ??? Ivc filter placement 1999 Current Inpatient Medications: Current hospital medications Medication ??? acetaminophen (aka TYLENOL) tablet 325-650 mg ??? atorvastatin (aka LIPITOR) tablet 40 mg ??? baclofen (aka LIORESAL INTRATHECAL) intrathecal 100 mcg ??? baclofen (aka LIORESAL) tablet 20 mg ??? citalopram (aka CELEXA) tablet 40 mg ??? cyclobenzaprine (aka FLEXERIL) tablet 10 mg ??? DIAZEpam (aka VALIUM) injection 2 mg ??? docusate sodium (aka ENEMEEZ) enema 283 mg ??? doxycycline hyclate (aka VIBRA-TABS) tablet 100 mg ??? FENTanyl (aka SUBLIMAZE) injection 12.5-50 mcg ??? gabapentin (aka NEURONTIN) capsule 200 mg ??? hydrocodone-acetaminophen (aka VICODIN,LORTAB) 5-500 MG tablet 1-2 Tab ??? HYDROmorphone (aka DILAUDID) injection 0.1-0.2 mg ??? lactulose oral liquid 20 g ??? LORazepam (aka ATIVAN) tablet 1 mg ??? meperidine (aka DEMEROL) injection 12.5-50 mg ??? metoCLOPRAMIDE (aka REGLAN) injection 10 mg ??? NaCl PF 0.9% injection 3-5 mL ??? ondansetron (aka ZOFRAN) injection 4 mg ??? ondansetron (aka ZOFRAN) injection 4 mg ??? polyethylene glycol 3350 (aka GLYCOLAX) powder 17 g ??? promethazine 6.25-12.5 mg injection ??? senna (aka SENOKOT) tablet 17.2 mg Allergies: Zaroxolyn and Oxycodone Family History Problem Relation ??? Cancer, Colon Mother ??? Cancer, Other Brother brother with throat cancer ??? Cancer, Breast Sister History Social History ??? Marital Status: Spouse Name: N/A Number of Children: N/A ??? Years of Education: N/A Occupational History ??? Not on file. Social History Main Topics ??? Tobacco Use: Never ??? Alcohol Use: No ??? Drug Use: No ??? Sexually Active: Yes -- Female partner(s) Other Topics Concern ??? Not on file Social History Narrative Wheelchair bound. Able to transfer from bed to wheelchair with assist of 1 at baseline. Lives with his in [place]. Review of Systems: A complete ROS was otherwise negative. Physical Examination: General: Well developed, well nourished adult in no apparent distress Patient Vitals in the past 24 hrs: BP Temp Temp src Pulse Resp SpO2 Height Wt - Scale 05/30/10 1123 130/86 mmHg 97.5 ??F (36.4 ??C) Oral 87 16 97 % - - 05/30/10 0733 120/66 mmHg 98.1 ??F (36.7 ??C) Oral 86 16 94 % - - 05/30/10 0328 132/72 mmHg 98 ??F (36.7 ??C) Oral 88 18 98 % - - 05/29/10 2331 115/68 mmHg 98.1 ??F (36.7 ??C) Oral 85 16 97 % - - 05/29/10 2218 108/66 mmHg - - 91 18 97 % - - 05/29/10 2020 110/71 mmHg - - 93 18 97 % - - 05/29/10 1920 95/62 mmHg - - 92 18 94 % - - 05/29/10 1826 122/80 mmHg - - 82 18 98 % - - 05/29/10 1720 123/78 mmHg - - 84 18 97 % - - 05/29/10 1650 123/78 mmHg - - 80 18 97 % - - 05/29/10 1620 146/88 mmHg 97.9 ??F (36.6 ??C) Axillary 76 18 98 % - - 05/29/10 1552 143/77 mmHg 97.9 ??F (36.6 ??C) Oral 79 18 99 % - - 05/29/10 1500 111/68 mmHg - - 88 14 97 % - - 05/29/10 1450 116/72 mmHg - - 90 14 98 % - - 05/29/10 1440 115/72 mmHg - - 93 12 99 % - - 05/29/10 1430 117/76 mmHg - - 94 10 98 % - - 05/29/10 1420 130/79 mmHg 98 ??F (36.7 ??C) Axillary 92 10 98 % - - HEENT: Normocephalic, atraumatic. Extraocular movement intact. Nose without discharge. O/P clear without lesions Neck: No masses, trachea is midline, no crepitus, thyroid not enlarged. . Chest/Lungs: Clear to auscultation. No wheezing or rales.. Heart: Regular rate and rhythm. and No murmurs, clicks, gallops or rubs.. Abdomen: Soft, without tenderness, guarding, mass, rebound or organomegaly.. Back: No deformity, no spinal, muscular or costovertebral angle tenderness. Surgical wound at T-spine healing well without tenderness. Extremities: No cyanosis, clubbing or edema. No inflammation or deformities of joints.. Neurological: Alert and oriented to person, place and time. Paraplegic below T5. Skin: Normal turgor, no rashes, discoloration or ulcerations. Lymphatic: No adenopathy. Labs: Results for orders placed during the hospital encounter of 05/26/10 (from the past 72 hour(s)) HEMOGRAM/PLTS Component Value Range ??? WBC 7.4 4.0-11.0 (k/ul) ??? RBC 3.57 (*) 4.5-5.9 (M/ul) ??? HGB 10.3 (*) 13.5-17.5 (g/dl) ??? HCT 30.1 (*) 41.0-53.0 (%) ??? MCV 84.4 80-100 (fl) ??? MCH 28.7 26-34 (pg) ??? MCHC 34.0 32-36 (g/dl) ??? RDW 15.3 (*) 11.5-14.5 (%) ??? PLTS 248 150-450 (k/ul) ??? MPV 7.5 6.5-10.0 (fl) LIGHT GREEN HOLD TUBE Component Value Range ??? LIGHT GREEN HOLD TUB Held in Chemistry sample rack for 7 days - BASIC METABOLIC PANEL Component Value Range ??? BUN 19 7-20 (mg/dl) ??? SODIUM 136 135-145 (mmol/L) ??? POTASSIUM 3.4 (*) 3.5-5.1 (mmol/L) ??? CHLORIDE 99 98-107 (mmol/L) ??? CO2 31 (*) 22-30 (mmol/L) ??? GLUCOSE 85 70-180 (mg/dl) ??? CREATININE 1.11 0.66-1.25 (mg/dl) ? ? GFR, ESTIMATED >60.00 >60- (ml/min/1.73m2) ? ? GFR EST IF >60.00 >60- (ml/min/1.73m2) ??? CALCIUM 8.3 (*) 8.4-10.2 (mg/dl) ??? ANION GAP (CALC.) 6 3-11 (mmol/L) HEMOGRAM/PLTS Component Value Range ??? WBC 7.0 4.0-11.0 (k/ul) ??? RBC 3.63 (*) 4.5-5.9 (M/ul) ??? HGB 10.5 (*) 13.5-17.5 (g/dl) ??? HCT 30.9 (*) 41.0-53.0 (%) ??? MCV 85.1 80-100 (fl) ??? MCH 28.9 26-34 (pg) ??? MCHC 34.0 32-36 (g/dl) ??? RDW 15.1 (*) 11.5-14.5 (%) ??? PLTS 196 150-450 (k/ul) ??? MPV 7.7 6.5-10.0 (fl) Microbiologic Results: CSF 05/26: protein 248, glucose 25, RBC 13867, nucleated cells 318 with 80%PMN. CSF 04/30 and seroma drainage 05/01 cx: rare coag negative staph Imaging: MRI thoracic: decreasing of paraspinal fluid collection. No signs of abscesses. Assessment : Jie Cullen is a 65 yr male with history of hypertension, DVT and ependymoma s/p resection and infection. CSF workup c/w bacterial infection. Previously culture positive for coag negative staph, therefore would require coverage. Clinically improving after the surgery. Recommendations: 1. Will recommend to d/c doxycycline and start IV vancomycin 1.5g Q12H for 10- day course. 2. PICC line for outpatient IV antibiotics. 3. Follow up with PCP in 10 days after discharge. 4. ID will sign off. Patient was seen and discussed with Dr. Tang. I appreciate this interesting consultation and the opportunity to assist in the care of this patient. CC: Maurice Hill Time spent with patient was >30 minutes, over 50% of which was spent in counseling and coordinating care. A clam shovel operator was not used during this exam. Report Completed by: Stephan ANDERSON MD, PGY-2, [phone] --- End of Report --- Relevant Reference Material (hyperlinks): UptoDate George Tang - 05/30/2010 11:24 AM CDT I saw and examined the patient today with the resident, reviewed all related documentation, and discussed management and plan of care. I agree with the findings and recommendations as documented in thenote by Dr. Stephan Anderson. Jie Cullen is a 65 yr old male with a history of ependymoma of the thoracic spine, status post resection and complicated by meningitis with previous Cultures growing Coagulase negative Staphylococcus. He was treated with vancomycin and cefepime (Maxipime) then discharged on oral trimethoprim/s ulfamethoxazole. He did not tolerate the latter and was switched to oral doxycycline. On follow-up he continued to have fever and Headache and when CSF evaluation showed continued evidence of meningitis, he was admitted and his Baclofen pump was removed on 05/29/10. CSF cultures this hospitalization are Negative to date. I suspect he failed therapy because of his poor tolerance to the initial oral regimen (Bactrim) and the continued presence of the foreign body (the pump). RECOMMENDATIONS: 1. Discontinue doxycycline; start intravenous vancomycin 1.5g Q12H for 10-day course. (If, based on his renal function and metabolism, this could be dosed once daily, that would be most convenient for outpatient intravenous antibiotic therapy - the PharmD will assess.) 2. PICC line for outpatient intravenous antibiotic therapy. 3. Follow up with Primary provider in 10 days after discharge. The Infectious Disease Consult Service will sign off. I appreciate this consultation and the opportunity to assist in the care of this patient. George Tang MD 05/30/2010 May Randle - 05/26/2010 5:29 PM CDT 05/26/2010 Baclofen pump interrogated post MRI-reveals motor stall but now running appropriately. Dr. Henson will decrease dose again tomorrow. May Randle MD Martha Thomas - 05/26/2010 2:12 PM CDTAssociated Order(s): PM&R INPT CONSULT [facility] PM&R Progress Note () Date of service: 05/26/2010 HPI: 65 yo male with hx of ependymoma of thoracic spine T5 level, with recent recurrence of tumor, s/p resection of this T5 thoracic ependymoma on 04/11/[address] Baron. He was discharged home on 04/20/10 and was doing well at the time, had fever to 101 - on 04/24/2010 He was admitted to [facility] on 04/29 for the fever. He also c/o severe headache since 04/28. He was seen by ID, Medicine, and Nephrology while an inpatient. He was taken to the OR 05/09 for revision of baclofen catheter and pump. The pump was left in situ and he was discharged home on Bactrim. He is readmitted with sleepiness and chills. PMR consulted for pump baclofen weaning since per NS the plan is to remove the ITB next Saturday. Patient denies any spasms of the legs, he had the baclofen dose decreased on 05/22 and has not noticed any increased spasms or pain. Cont to have chills. Edema in the LE controlled. Had also emesis and did not tolerate the bactrim per his report. Also reports ongoing headaches. BM stable on miralax and senna. Allergies:Zaroxolyn and Oxycodone Current Medications: Current hospital medications Medication Dose Route Frequency ??? acetaminophen (aka TYLENOL) tablet 325-650 mg 325-650 mg Oral Q4H PRN ??? atorvastatin (aka LIPITOR) tablet 40 mg 40 mg Oral Daily ??? baclofen (aka LIORESAL) tablet 20 mg 20 mg Oral BID ??? baclofen (aka LIORESAL) tablet 20 mg 20 mg Oral TID ??? citalopram (aka CELEXA) tablet 40 mg 40 mg Oral Daily ??? cyclobenzaprine (aka FLEXERIL) tablet 10 mg 10 mg Oral TID PRN ??? dexamethasone (aka DECADRON) injection 4-8 mg 4-8 mg IV SDS ??? docusate sodium (aka ENEMEEZ) enema 283 mg 1 Enema Rectal DAILY PRN ??? doxycycline hyclate (aka VIBRA-TABS) tablet 100 mg 100 mg Oral BID ??? enoxaparin (aka LOVENOX) injection 100 mg 100 mg SC Daily ??? EPHEDrine injection 25 mg 25 mg IM SDS ??? FENTanyl (aka SUBLIMAZE) injection 12.5-50 mcg 12.5-50 mcg IV SDS ??? ferrous sulfate tablet 325 mg 325 mg Oral Daily with meals ??? gabapentin (aka NEURONTIN) capsule 200 mg 200 mg Oral BID ??? hydrALAZINE (aka APRESOLINE) injection 5 mg 5 mg IV SDS ??? hydrocodone-acetaminophen (aka VICODIN,LORTAB) 5-500 MG tablet 1-2 Tab 1-2 Tab Oral Q4H PRN ??? hydrOXYzine HCl (aka VISTARIL) injection 25 mg 25 mg IM SDS ??? labetalol (aka NORMODYNE) injection 5 mg 5 mg IV SDS ??? lactated ringers infusion 1,000 mL 1,000 mL IV SDS ??? lactulose oral liquid 20 g 20 g Oral BID PRN ??? LORazepam (aka ATIVAN) tablet 1 mg 1 mg Oral TID ??? meperidine (aka DEMEROL) injection 12.5-50 mg 12.5-50 mg IV SDS ??? metoCLOPRAMIDE (aka REGLAN) injection 10 mg 10 mg IV SDS ??? metoPROLOL tartrate (aka LOPRESSOR) injection 1-2 mg 1-2 mg IV SDS ? ? NaCl PF 0.9% injection 3-5 mL 3-5 mL IV PRN after every IV medication & lab draw ??? ondansetron (aka ZOFRAN) injection 4 mg 4 mg IV SDS ??? promethazine 6.25-12.5 mg injection 6.25-12.5 mg IV SDS ??? senna (aka SENOKOT) tablet 25.8 mg 3 Tab Oral BID PRN Allergies Allergen Reactions ??? Zaroxolyn (Sulfa Drugs) Rash ??? Oxycodone Other Delirium Past Medical History Diagnosis Date ??? 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 Glasgow at [facility] in 05/2000. However resection was incomplete due to encasement of nerves. XRT was planned but ependymoma quickly regrew & he underwent re-resection in 07/2000. 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 He again underwent resection, this time followed by radiation therapy. This controlled the tumorf ??? DVT (Deep Venous Thrombosis) 2000 s/p IVC filter placed in 1999, also on coumadin since 1999. had non occlusive DVT of bilat LEs on dopplers 04/2010 ??? 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 HTN (Hypertension) ??? Dyslipidemia ??? CAREPLAN: BACLOFEN 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 Objective: Patient Vital Signs in the past 48 hrs: Height Wt - Scale Temp Temp src Pulse BP Resp SpO2 Oximetry Done On 05/26/10 1316 - - 97.8 ??F (36.6 ??C) Oral 96 141/94 mmHg 18 97 % RA 05/26/10 1245 - - 97.8 ??F (36.6 ??C) Oral 99 135/84 mmHg 18 100 % RA 05/26/10 1214 - - - - 93 143/90 mmHg 18 97 % RA 05/26/10 1145 - - 97.5 ??F (36.4 ??C) Oral 96 158/97 mmHg 18 95 % RA 05/26/10 0800 5' 10 (1.778 m) 97.523 kg (215 lb) 96 ??F (35.6 ??C) Tympanic 96 125/81 mmHg 16 100 %RA Gen: No acute distress, alert and oriented times 3, affect is flat Lungs: Lungs clear bilaterally CV: Regular rate and rhythm Abd: soft, post bowel sounds Extremities: mild edema. No spasms noted. Tone is 0/4 in bilat LE. Absent DTR. No clonus. Currently on Diet: Clear Liquids Liquid Consistency: Thin Lab Results Component Value Date/Time ??? GLWB 138 05/12/10 9:26 PM ??? GLWB 142 05/12/10 5:32 PM ??? GLWB 101 05/12/10 12:16 PM ??? GLWB 129 05/12/10 8:17 AM ??? GLWB 119 05/11/10 6:53 PM ??? GLWB 133 05/11/10 12:03 PM ??? GLWB 111 05/11/10 8:09 AM ??? GLWB 129 05/10/10 9:32 PM Labs: Results for orders placed during the hospital encounter of 05/26/10 (from the past 24 hour(s)) INR/PROTIME Component Value Range ??? PROTIME 20.1 (*) 12.0-14.5 (sec) ??? INR 1.7 - APTT (ACTIVATED PARTIAL THROMBOPLASTIN TIME Component Value Range ??? PTT 42.4 (*) 24.0-37.0 (sec) LAB TO PREPARE THAWED PLASMA Component Value Range ??? UNITS ORDERED 2 - ??? UNIT NUMBER [id number] - ??? BLOOD COMPONENT TYPE THAWED PLASMA - ??? STATUS OF UNIT ISSUED - ??? TRANSFUSION STATUS OK TO TRANSFUSE - ??? UNIT NUMBER [id number] - ??? BLOOD COMPONENT TYPE THAWED PLASMA - ??? STATUS OF UNIT ISSUED - ??? TRANSFUSION STATUS OK TO TRANSFUSE - TYPE & CROSSMATCH (TRANSFUSE NOW) Component Value Range ??? ABO/RH(D) A NEGATIVE - ??? ANTIBODY SCREEN NEGATIVE - ??? CROSSMATCH EXPIRES 05/29/2010 - ??? UNIT NUMBER [id number] - ??? 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 STATUS OF UNIT ISSUED - ??? TRANSFUSION STATUS OK TO TRANSFUSE - ??? CROSSMATCH RESULT COMPATIBLE - ??? UNIT NUMBER [id number] - ??? 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 STATUS OF UNIT ISSUED - ??? TRANSFUSION STATUS OK TO TRANSFUSE - ??? CROSSMATCH RESULT COMPATIBLE - CSF, GLUCOSE Component Value Range ??? SOURCE Cerebrospinal Fluid - ??? GLUCOSE, CSF 25 (*) 40-70 (mg/dl) CSF TOTAL PROTEIN Component Value Range ??? SOURCE Cerebrospinal Fluid - ??? TOTAL PROTEIN, CSF 248 (*) 12-60 (mg/dl) SECOND CSF CELL COUNT & DIFF Component Value Range ??? SOURCE Cerebrospinal Fluid - ??? DESCRIPTION, CSF - Value: Bloody Slight ??? TUBE # 4 - ??? XANTHOCHROMIA Present - ??? RBC, CSF 17474 - (/ul) ??? NUCLEATED CELLS, CSF 318 (*) 0-5 (/ul) ??? PMN'S 80 - (%) ??? LYMPHOCYTES 9 - (%) ??? MONOCYTE/MACROPHAGE 11 - (%) FIRST CSF CELL COUNT & DIFF Component Value Range ??? SOURCE Cerebrospinal Fluid - ??? DESCRIPTION, CSF - Value: Bloody Slight ??? TUBE # 1 - ??? XANTHOCHROMIA Present - ??? RBC, CSF 71007 - (/ul) ??? NUCLEATED CELLS, CSF 352 (*) 0-5 (/ul) ??? LYMPHOCYTES - (%) SPINAL FLUID CULTURE & SMEAR Component Value Range ??? SPECIMEN DESCRIPTION Cerebrospinal Fluid - ??? SPECIAL REQUESTS Unspecified - ??? GRAM SMEAR No Organisms Seen - ??? GRAM SMEAR - Value: Critical value results given to and read back by Mendoza [employer] [id number] at 11:58 ??? GRAM SMEAR 05/26 to NT - ??? CULTURE - ??? REPORT STATUS - AEROBIC CULTURE Component Value Range ??? SPECIMEN DESCRIPTION Fluid BACLOFEN PUMP - ??? SPECIAL REQUESTS Unspecified - ??? GRAM SMEAR No PMN'S Seen - ??? GRAM SMEAR No Organisms Seen - ??? GRAM SMEAR - Value: Results Called to Mendoza OR2 [id number] at 11:59 on 05/26 by NT ??? CULTURE - ??? REPORT STATUS - PROCEDURE NOTE: 05/26/2010 Current settings: Baclofen Concentration 1,000mcg/ml on simple continuous mode Dose: last dose on 05/22 was 213 Mcg/day. Baclofen dose was decreased by 20% and new pump settings are: 1. Simple continuous mode 2. 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 Plan: 1. Started on oral baclofen 20mg BID today. Continue with 20mg TID. May increase to 20mg QID. 2. Continue to taper intrathecal baclofen daily over the weekend by 20-25%. 3. Use oral baclofen and valium for prevention of withdrawal symptoms 4. Monitor respiratory status closely 5. Contact Dr. Mone Fragoso or Dr. Karo Henson from PMR if questions. Martha South MD --- End of Report --- documented in this encounter OR Notes H&P - [facility], PROVIDER - 04/29/2010 12:00 AM CDT documented in this encounter Miscellaneous Notes Media - [facility], PROVIDER - 06/26/2010 12:00 AM CDT Media - [facility], PROVIDER - 06/01/2010 12:00 AM CDT Media - [facility], PROVIDER - 06/01/2010 12:00 AM CDT Media - [facility], PROVIDER - 05/29/2010 12:00 AM CDT Media - [facility], PROVIDER - 05/29/2010 12:00 AM CDT Media - [facility], PROVIDER - 05/26/2010 12:00 AM CDT Media - [facility], PROVIDER - 05/26/2010 12:00 AM CDT Media - [facility], PROVIDER - 05/26/2010 12:00 AM CDT Media - [facility], PROVIDER - 05/26/2010 12:00 AM CDT Media - [facility], PROVIDER - 05/26/2010 12:00 AM CDT Media - [facility], PROVIDER - 05/26/2010 12:00 AM CDT Media - [facility], PROVIDER - 05/26/2010 12:00 AM CDT documented in this encounter Plan of Treatment Not on filedocumented as of this encounter Procedures Procedure Name Priority Date/Time Associated Comments Diagnosis VANCOMYCIN LEVEL Routine 05/31/2010 4:00 Results for this PM CDT procedure are i n the results section. XR PORTABLE CHEST 1 Discharge 05/31/2010 11:11 Resu lts for this VIEW Decision AM CDT procedure are i n the results section. INR/PROTIME Routine 05/31/2010 10:54 Results for this AM CDT procedure are i n the results section. BASIC METABOLIC Routine 05/30/2010 12:28 Results for this PANEL PM CDT procedure are i n the results section. COMPLETE BLOOD Routine 05/30/2010 12:28 Results f or this COUNT-NO DIFF PM CDT procedure are in the results section. REPLACEMENT Inpatient 05/29/2010 12:57 BACLOFEN PUMP BACLOFEN PUMP PM CDT INFECTION Case Notes REMOVAL OF BACLOFEN PUMP EKG IP 05/29/2010 12:00 AM Results for this CDT procedure are i n the results section . LIGHT GREEN HOLD TUBE Routine 05/28/2010 6:44 AM CDT Results for this procedure are i n the results section . COMPLETE BLOOD Routine 05/28/2010 6:43 AM CDT Res ults for this COUNT-NO DIFF procedure are in the results section . COMPLETE BLOOD Routine 05/27/2010 6:52 AM CDT Res ults for this COUNT-NO DIFF procedure are in the results section . MR THORACIC SPINE W/WO Routine 05/26/2010 4:52 PM CDT Results for this IV CONT procedure are i n the results section . CREATININE / GFR STAT 05/26/2010 2:51 PM CDT R esults for this procedure are i n the results section . XR C-ARM 30-59 MINUTES Routine 05/26/2010 10:35 AM Results for this CDT procedure are i n the results section . FIRST CSF CELL COUNT & Routine 05/26/2010 10:30 AM Results for this DIFF CDT procedure are i n the results section . SECOND CSF CELL COUNT Routine 05/26/2010 10:30 AM Results for this & DIFF CDT procedure are i n the results section . SPINAL FLUID CULTURE & Routine 05/26/2010 10:30 AM Results for this SMEAR CDT procedure are i n the results section . AEROBIC CULTURE Routine 05/26/2010 10:30 AM Resul ts for this CDT procedure are i n the results section . ANAEROBIC CULTURE Routine 05/26/2010 10:30 AM Res ults for this CDT procedure are i n the results section . ANAEROBIC CULTURE Routine 05/26/2010 10:30 AM Res ults for this CDT procedure are i n the results section . CSF, GLUCOSE Routine 05/26/2010 10:30 AM Results for this CDT procedure are i n the results section . CSF TOTAL PROTEIN Routine 05/26/2010 10:30 AM Res ults for this CDT procedure are i n the results section . PLACEMENT LUMBAR DRAIN AM Admit 05/26/2010 9:51 AM CDT MENINGIT IS Case Notes LUMBAR PUNCTURE TYPE & CROSSMATCH (TRANSFUSE STAT 05/26/2010 9:30 AM CDT Results for this NOW) procedure are i n the results section . LAB TO PREPARE THAWED PLASMA STAT 05/26/2010 9:29 AM CDT Results for this procedure are i n the results section . APTT (ACTIVATED PARTIAL Routine 05/26/2010 8:12 AM CDT Results for this THROMBOPLASTIN TIME procedur e are in the results section . INR/PROTIME Routine 05/26/2010 8:12 AM CDT Resul ts for this procedure are i n the results section . documented in this encounter Results VANCOMYCIN LEVEL (05/31/2010 4:00 PM CDT) P athologist Signature Vancomycin 19.2 mcg/ml [facility] Comment: Trough range: 10.0-20.0 Specimen Anatomical Collection Method Collection Time Receive d Time (Source) Location / / Volume Laterality Pre-infusion 05/31/2010 4:00 PM 0 4:41 CDT PM CDT Maurice Baron MD LAB_1 Performing Organization Address City/State/ZIP Code Phon e Number [address] [address] [place], [place] [phone] XR PORTABLE CHEST 1 VIEW to verify catheter tip location JORGE LUIS (05/31/2010 11:11 AM CDT) Anatomical Region Laterality Modality Chest, Lung Computed Radiography Specimen (Source) Anatomical Collection Method Collection Time Re ceived Time Location / / Volume Laterality 05/31/2010 11:11 AM CDT Narrative 05/31/2010 11:22 AM CDT PORTABLE CHEST ONE VIEW 05/31/2010 AT 1116 HOURS INDICATION: ??Line placement. COMPARISON: 05/01/2010 FINDINGS: Right PICC line with the tip i n the distal SVC. Lungs are clear. Heart is normal. Procedure Note Jamir Dailey - 05/31/2010Formatting of t his note might be different from the original. PORTABLE CHEST ONE VIEW 05/31/2010 AT 1116 HOURS INDICATION: Line placement. COMPARISON: 05/01/2010 FINDINGS: Right PICC line with the tip i n the distal SVC. Lungs are clear. Heart is normal. Maurice Baron MD RAD PORTABLE (ABNORMAL) INR/PROTIME (05/31/2010 10:54 AM CDT) P athologist Signature Protime 17.5 (H) 12.0 - 14.5 [facility] sec INR 1.4 [facility] Specimen Anatomical Collection Method Collection Time Receive d Time (Source) Location / / Volume Laterality 05/31/2010 10:54 05/31/2010 AM CDT 10:55 AM CDT Lucy Colmenares PA-C LAB_1 Performing Organization Address [facility] Phon e Number [address] [address] [place], [place] [phone] (ABNORMAL) HEMOGRAM/PLTS (05/30/2010 12:28 PM CDT) athologist Signature WBC 7.0 4.0 - 11.0 [facility] k/ul RBC 3.63 (L) 4.5 - 5.9 [facility] M/ul Hemoglobin 10.5 (L) 13.5 - 17.5 [facility] g/dl HCT 30.9 (L) 41.0 - 53.0 [facility] % MCV 85.1 80 - 100 fl [facility] MCH 28.9 26 - 34 pg [facility] MCHC 34.0 32 - 36 [facility] g/dl RDW 15.1 (H) 11.5 - 14.5 [facility] % Platelets 196 150 - 450 [facility] k/ul MPV 7.7 6.5 - 10.0 [facility] fl Specimen Anatomical Collection Method Collection Time Receive d Time (Source) Location / / Volume Laterality 05/30/2010 12:28 05/30/2010 PM CDT 12:31 PM CDT Maurice Baron MD LAB_1 Performing Organization Address [facility] Phon e Number [address] [address] [place], [place] [phone] (ABNORMAL) BASIC METABOLIC PANEL (05/30/2010 12:28 PM CDT) athologist Signature BUN 19 7 - 20 [facility] mg/dl Sodium 136 135 - 145 [facility] mmol/L Potassium 3.4 (L) 3.5 - 5.1 [facility] mmol/L Chloride 99 98 - 107 [facility] mmol/L CO2 31 (H) 22 - 30 [facility] mmol/L Glucose 85 70 - 180 [facility] mg/dl Creatinine 1.11 0.66 - [facility] 1.25 mg/dl GFR, Estimated >60.00 >60 [facility] ml/min/1.7 3m2 GFR, Est., If >60.00 >60 [facility] Black ml/min/1.7 3m2 Calcium 8.3 (L) 8.4 - 10.2 [facility] mg/dl Anion Gap 6 3 - 11 [facility] (calc.) mmol/L Specimen Anatomical Collection Method Collection Time Receive d Time (Source) Location / / Volume Laterality 05/30/2010 12:28 05/30/2010 PM CDT 12:31 PM CDT Maurice Baron MD LAB_1 Performing Organization Address [facility]/[place] [facility] Phon [place] Number [address] [address] [place], [place] [phone] EKG IP (05/29/2010 12:00 AM CDT) Specimen (Source) Anatomical Location Collection Method / Collectio n Time Received Time / Laterality Volume 05/29/2010 Narrative This result has an attachment that is no t available. Transcriptions [facility], PROVIDER - 05/29/2010 12:00 AM CDT Provider [facility] EKG LIGHT GREEN HOLD TUBE (05/28/2010 6:44 AM CDT) Patholo gist Method Time Signature Light Green Held in [facility] Hold Tub Chemistry sample rack for 7 days Specimen Anatomical Collection Method Collection Time Receive d Time (Source) Location / / Volume Laterality 05/28/2010 6:44 AM 0 7:01 CDT AM CDT Maurice Baron MD LAB_1 Performing Organization Address [facility] Phon e Number [address] [address] [place], [place] [phone] (ABNORMAL) HEMOGRAM/PLTS (05/28/2010 6:43 AM CDT) P athologist Signature WBC 7.4 4.0 - 11.0 [facility] k/ul RBC 3.57 (L) 4.5 - 5.9 [facility] M/ul Hemoglobin 10.3 (L) 13.5 - 17.5 [facility] g/dl HCT 30.1 (L) 41.0 - 53.0 [facility] % MCV 84.4 80 - 100 fl [facility] MCH 28.7 26 - 34 pg [facility] MCHC 34.0 32 - 36 [facility] g/dl RDW 15.3 (H) 11.5 - 14.5 [facility] % Platelets 248 150 - 450 [facility] k/ul MPV 7.5 6.5 - 10.0 [facility] fl Specimen Anatomical Collection Method Collection Time Receive d Time (Source) Location / / Volume Laterality 05/28/2010 6:43 AM 0 6:44 CDT AM CDT Yomi Miller MD LAB_1 Performing Organization Address [facility] Phon e Number [address] [address] [place], [place] [phone] (ABNORMAL) Hemogram with Platelets (05/27/2010 6:52 AM CDT) athologist Signature WBC 7.2 4.0 - 11.0 [facility] k/ul RBC 2.96 (L) 4.5 - 5.9 [facility] M/ul Hemoglobin 8.5 (L) 13.5 - 17.5 [facility] g/dl HCT 25.1 (L) 41.0 - 53.0 [facility] % MCV 84.6 80 - 100 fl [facility] MCH 28.6 26 - 34 pg [facility] MCHC 33.8 32 - 36 [facility] g/dl RDW 15.3 (H) 11.5 - 14.5 [facility] % Platelets 282 150 - 450 [facility] k/ul MPV 7.4 6.5 - 10.0 [facility] fl Specimen Anatomical Collection Method Collection Time Receive d Time (Source) Location / / Volume Laterality 05/27/2010 6:52 AM 0 6:53 CDT AM CDT Maurice Baron MD LAB_1 Performing Organization Address [facility] Phon e Number [address] [address] [place], [place] [phone] MR THORACIC SPINE WITH/WITHOUT CONTRAST (05/26/2010 4:52 PM CDT) Anatomical Region Laterality Modality Spine, T-Spine, L-Spine, C-Spine, Skeletal Magnetic Resonance Specimen (Source) Anatomical Collection Method Collection Time Re ceived Time Location / / Volume Laterality 05/26/2010 4:52 PM CDT Narrative 05/26/2010 5:18 PM CDT [facility] THORACIC SPINE MRI ? 05/26/2010 INDICATION: Evaluate fluid collection in the upper back. Previous surgery for thoracic cord ependymoma. TECHNIQUE: Thoracic spine MRI without an d with contrast. 20 mL of Magnevist. COMPARISON: 04/29/2010 FINDINGS: Significant decrease in the si ze of the fluid collection within the soft tissues in the upper back damian red to 04/29/2010. The fluid collection measures 5 x 5 x 11 cm today compared to 5 x 11 x 16 cm on the exam of 04/29/2010. Fluid collection exte nds to the posterior margin of the dura. Decrease in the size of the intras feliberto fluid collection compared to the previous exam. No evidence of signif icant compression of the thecal sac. Mild enhancement along the margins of the fluid collection. No evidence of an intraspinal or soft tissu e abscess. No evidence of discitis or osteomyelitis. Postoperative changes involving the uppe r thoracic cord with lack of visualization of the cord in the upper t horacic region. No evidence of enhancing tissue within the spinal canal . Post radiation changes involving the lower cervical and upper thoracic ve rtebral bodies. CONCLUSION: 1. Decrease in the size of the fluid col lection in the soft tissues of the upper back as well as decrease in the fl uid collection in the posterior epidural region compared to 04/29/2010. 2. No evidence of an intraspinal or post erior soft tissue abscess. No evidence of discitis or osteomyelitis. 3. Postoperative changes involving the u pper thoracic cord without evidence of recurrent tumor within the spinal ca nal. Procedure Note Julien Anna - 05/27/2010 [facility] THORACIC SPINE MRI 05/26/2010 INDICATION: Evaluate fluid collection in the upper back. Previous surgery for thoracic cord ependymoma. TECHNIQUE: Thoracic spine MRI without an d with contrast. 20 mL of Magnevist. COMPARISON: 04/29/2010 FINDINGS: Significant decrease in the si ze of the fluid collection within the soft tissues in the upper back damian red to 04/29/2010. The fluid collection measures 5 x 5 x 11 cm today compared to 5 x 11 x 16 cm on the exam of 04/29/2010. Fluid collection exte nds to the posterior margin of the dura. Decrease in the size of the intras feliberto fluid collection compared to the previous exam. No evidence of signif icant compression of the thecal sac. Mild enhancement along the margins of the fluid collection. No evidence of an intraspinal or soft tissu e abscess. No evidence of discitis or osteomyelitis. Postoperative changes involving the uppe r thoracic cord with lack of visualization of the cord in the upper t horacic region. No evidence of enhancing tissue within the spinal canal . Post radiation changes involving the lower cervical and upper thoracic ve rtebral bodies. CONCLUSION: 1. Decrease in the size of the fluid col lection in the soft tissues of the upper back as well as decrease in the fl uid collection in the posterior epidural region compared to 04/29/2010. 2. No evidence of an intraspinal or post erior soft tissue abscess. No evidence of discitis or osteomyelitis. 3. Postoperative changes involving the u pper thoracic cord without evidence of recurrent tumor within the spinal ca nal. Maurice Baron MD RAD MRI CREATININE / GFR (05/26/2010 2:51 PM CDT) P athologist Signature Creatinine 1.10 0.66 - [facility] 1.25 mg/dl GFR, Estimated >60.00 >60 [facility] ml/min/1.7 3m2 GFR, Est., If >60.00 >60 [facility] Black ml/min/1.7 3m2 Specimen Anatomical Collection Method Collection Time Receive d Time (Source) Location / / Volume Laterality 05/26/2010 2:51 PM 0 2:52 CDT PM CDT Maurice Baron MD LAB_1 Performing Organization Address City/State/ZIP Code Phon e Number [address] [address] [place], [place] [phone] XR C-ARM 30-59 MIN (05/26/2010 10:35 AM CDT) Anatomical Region Laterality Modality X-Ray Angiography Specimen (Source) Anatomical Location Collection Method / Collectio n Time Received Time / Laterality Volume Narrative 05/26/2010 10:37 AM CDT This is an imaging order which does not require reading by a radiologist. The order is completed and status is fin al. Procedure Note Cooper Kim S - 05/26/2010 This is an imaging order which does not require reading by a radiologist. The order is completed and status is final. Maurice Baron MD RAD GD ANAEROBIC CULTURE (05/26/2010 10:30 AM CDT) [facility] Method Time Signature Specimen Fluid BACLOFEN [facility] Description PUMP Special Unspecified [facility] Requests Aerobic Cult [id number] [facility] Number Culture No Anaerobes [facility] Isolated Report Status Final [facility] 06/02/2010 Specimen Anatomical Collection Method Collection Time Receive d Time (Source) Location / / Volume Laterality 05/26/2010 10:30 05/26/2010 AM CDT 11:23 AM CDT Noble Singh MD LAB_1 Performing Organization Address [facility] Phon e Number [address] [address] [place], [place] [phone] AEROBIC CULTURE (05/26/2010 10:30 AM CDT) [facility] Method Time Signature Specimen Fluid BACLOFEN [facility] Description PUMP Special Unspecified [facility] Requests Gram Smear No PMN'S Seen [facility] Gram Smear No Organisms [facility] Seen Gram Smear Results Called [facility] to Mendoza OR2 [id number] at 11:59 on 05/26 by NT Culture No Growth After [facility] 3 Days Report Status Final [facility] 05/29/2010 Specimen Anatomical Collection Method Collection Time Receive d Time (Source) Location / / Volume Laterality 05/26/2010 10:30 05/26/2010 AM CDT 11:23 AM CDT Noble Singh MD LAB_1 Performing Organization Address City/[facility]/[place] [facility] Phon [place] Number [address] [address] [place], [place] [phone] ANAEROBIC CULTURE (05/26/2010 10:30 AM CDT) Component Value Ref Test Analysis Performed At [facility] Method Time Signature Specimen Cerebrospinal [facility] Description Fluid Special Unspecified [facility] Requests Aerobic Cult [id number] [facility] Number Culture No Anaerobes [facility] Isolated Report Status Final 06/02/2010 [facility] Specimen Anatomical Collection Method Collection Time Receive d Time (Source) Location / / Volume Laterality 05/26/2010 10:30 05/26/2010 AM CDT 11:18 AM CDT Noble Singh MD LAB_1 Performing Organization Address City/[facility]/ZIP Code Phon e Number [address] [address] [place], [place] [phone] SPINAL FLUID CULTURE & SMEAR (05/26/2010 10:30 AM CDT) Component Value Ref Test Analysis Performed At [facility] Method Time Signature Specimen Cerebrospinal [facility] Description Fluid Special Unspecified [facility] Requests Gram Smear No Organisms [facility] Seen Gram Smear Critical value [facility] results given to and read back by Kelly ORLinda [id number] at 11:58 Gram Smear 05/26 to NT [facility] Culture No Growth After [facility] 3 Days Report Status Final 05/29/2010 [facility] Specimen Anatomical Collection Method Collection Time Receive d Time (Source) Location / / Volume Laterality 05/26/2010 10:30 05/26/2010 AM CDT 11:18 AM CDT Noble Singh MD LAB_1 Performing Organization Address [facility] Phon e Number [address] [address] [place], [place] [phone] (ABNORMAL) FIRST CSF CELL COUNT & DIFF (05/26/2010 10:30 AM CDT) Component Value Ref Test Analysis Performed At [facility] Method Time Signature Source Cerebrospinal [facility] Fluid Description, CSF Bloody [facility] Slight Tube # 1 [facility] Xanthochromia Present [facility] RBC, CSF 08230 /ul [facility] Nucleated Cells, 352 (H) 0 - 5 [facility] CSF /ul PMN's 65 % [facility] Lymphocytes 15 % [facility] Monocyte/Macroph 20 % [facility] age Specimen Anatomical Collection Method Collection Time Receive d Time (Source) Location / / Volume Laterality 05/26/2010 10:30 05/26/2010 AM CDT 11:11 AM CDT Noble Singh MD LAB_1 Performing Organization Address City/[facility]/[place] [facility] Phon [place] Number [address] [address] [place], [place] [phone] (ABNORMAL) SECOND CSF CELL COUNT & DIFF (05/26/2010 10:30 AM CDT) Component Value Ref Test Analysis Performed At [facility] Method Time Signature Source Cerebrospinal [facility] Fluid Description, CSF Bloody [facility] Slight Tube # 4 [facility] Xanthochromia Present [facility] RBC, [place] [address] /ul [facility] Nucleated Cells, 318 (H) 0 - 5 [facility] CSF /ul PMN's 80 % [facility] Lymphocytes 9 % [facility] Monocyte/Macroph 11 % [facility] age Specimen Anatomical Collection Method Collection Time Receive d Time (Source) Location / / Volume Laterality 05/26/2010 10:30 05/26/2010 AM CDT 11:03 AM CDT Noble Singh MD LAB_1 Performing Organization Address [facility] Code Phon e Number [address] [address] [place], [place] [phone] (ABNORMAL) CSF TOTAL PROTEIN (05/26/2010 10:30 AM CDT) [facility] Method Time Signature Source Cerebrospinal [facility] Fluid Total 248 (H) 12 - 60 [facility] Protein, CSF mg/dl Comment: The use if this assay to monitor or diag nose patients has not been approved for this specimen type by the FDA or environmental health safety manager of this assay. Specimen Anatomical Collection Method Collection Time Receive d Time (Source) Location / / Volume Laterality 05/26/2010 10:30 05/26/2010 AM CDT 10:51 AM CDT Noble Singh MD LAB_1 Performing Organization Address [facility] Code Phon e Number [address] [address] [place], [place] [phone] (ABNORMAL) CSF, GLUCOSE (05/26/2010 10:30 AM CDT) [facility] [facility] Method Time Signature Source Cerebrospinal REGIONS Fluid Glucose, CSF 25 (L) 40 - 70 REGIONS mg/dl Specimen Anatomical Collection Method Collection Time Receive d Time (Source) Location / / Volume Laterality 05/26/2010 10:30 05/26/2010 AM CDT 10:51 AM CDT Noble Singh MD LAB_1 Performing Organization Address City/[facility] Phon e Number [address] [address] [place], [place] [phone] TYPE & CROSSMATCH (TRANSFUSE NOW) (05/26/2010 9:30 AM CDT) [facility] Method Time Signature ABO/RH(D) A NEGATIVE REGIONS Antibody Screen NEGATIVE REGIONS Crossmatch 05/29/2010 REGIONS Expires Unit Number [id number] REGIONS Blood Component [employer] FINISH REPAIRER REGIONS Type Status of Unit Issued, final REGIONS Transfusion OK TO REGIONS Status TRANSFUSE Crossmatch COMPATIBLE REGIONS Result Unit Number [id number] REGIONS Blood Component [employer]ISH REPAIRER REGIONS Type Status of Unit Issued, final REGIONS Transfusion OK TO REGIONS Status TRANSFUSE Crossmatch COMPATIBLE REGIONS Result Unit Number [id number] REGIONS Blood Component [employer] FINISH REPAIRER REGIONS Type Status of Unit Issued, final REGIONS Transfusion OK TO REGIONS Status TRANSFUSE Crossmatch COMPATIBLE REGIONS Result Unit Number [id number] REGIONS Blood Component [employer] FINISH REPAIRER REGIONS Type Status of Unit Issued, final REGIONS Transfusion OK TO REGIONS Status TRANSFUSE Crossmatch COMPATIBLE REGIONS Result Specimen Anatomical Collection Method Collection Time Receive d Time (Source) Location / / Volume Laterality 05/26/2010 9:30 AM 0 9:34 CDT AM CDT Maurice Baron MD LAB_1 Performing Organization Address [facility] Phon e Number [facility] [address] [place] [address] [place], [place] [phone] LAB TO PREPARE THAWED PLASMA (05/26/2010 9:29 AM CDT) [facility] gist Method Time Signature Units Ordered 2 REGIONS Unit Number [id number] REGIONS Blood Component THAWED PLASMA REGIONS Type Status of Unit Issued, final REGIONS Transfusion OK TO REGIONS Status TRANSFUSE Unit Number [id number] REGIONS Blood Component THAWED PLASMA REGIONS Type Status of Unit Issued, final REGIONS Transfusion OK TO REGIONS Status TRANSFUSE Specimen Anatomical Collection Method Collection Time Receive d Time (Source) Location / / Volume Laterality 05/26/2010 9:29 AM 0 9:41 CDT AM CDT Maurice Baron MD LAB_1 Performing Organization Address [facility] Phon e Number [facility] [address] [place] [address] [place], [place] [phone] (ABNORMAL) aPTT (Activated Partial Thromboplastin Time) (05/26/2010 8:12 AM CDT) P athologist Signature PTT 42.4 (H) 24.0 - 37.0 REGIONS sec Specimen Anatomical Collection Method Collection Time Receive d Time (Source) Location / / Volume Laterality 05/26/2010 8:12 AM 0 8:32 CDT AM CDT Maurice Baron MD LAB_1 Performing Organization Address City/[facility]/ZIP Code Phon e Number [address] [address] [place], [place] [phone] (ABNORMAL) INR/Protime (PT/INR) (05/26/2010 8:12 AM CDT) P athologist Signature Protime 20.1 (H) 12.0 - 14.5 REGIONS sec INR 1.7 REGIONS Specimen Anatomical Collection Method Collection Time Receive d Time (Source) Location / / Volume Laterality 05/26/2010 8:12 AM 0 8:32 CDT AM CDT Maurice Baron MD LAB_1 Performing Organization Address [facility] Phon e Number [address] [address] [place], [place] [phone] documented in this encounter Visit Diagnoses Diagnosis 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 Nutrition Status Classification: Mild Nutritional Risk/Status NUTRITION INTERVENTION 1. Adjust meals per food preferences and tolerance 2. Encourage adequate diet intake NUTRITION MONITORING, EVALUTION, AND OUTCOME GOALS Monitor: dietary intake and tolerance, bowel function, pertinent labs and weight changes Outcome Goal(s): 1. Consistently eat >75 % of meals 2. Achieve/maintain labs WNL 3. Weight maintenance Follow-up EMR documentation within 6 days Report completed by: Jennyfer Bailey RD, ALEJA, LIDIA If you have questions, page [phone] Weekend pager: [phone] Nutrition Assessment Data Current Nutrition/Diet Order: Diet: Regular diet. Current Intake/Digestive Problems: no problems noted Dietary Intake Since Admission: consuming 75-100% of documented meals. 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 Weight as of this encounter: 215 lb(97.523 kg). Last 5 Encounter Wt Readings: Admission (Current) on 05/26/2010 05/26/2010 8:00 AM Weight: 97.523 kg (215 lb) Surgery on 05/26/2010 05/26/2010 8:00 AM Weight: 97.523 kg (215 lb) ED to Hosp-Admission from 04/30/2010 to 05/13/2010 05/13/2010 6:57 AM Weight: 116.983 kg (257 lb 14.4 oz) Surgery on 05/09/2010 05/13/2010 6:57 AM Weight: 116.983 kg (257 lb 14.4 oz) Admission from 04/11/2010 to 04/20/2010 04/11/2010 11:53 AM Weight: 104.327 kg (230 lb) Comparative Anthropometric Standards: ideal body weight 75.5 kg and 129 % ideal body weight Estimated calorie/protein needs: Calories: 25 Kcal/kg = 2438 Kcal/day Protein: 1.2 gm/kg= 117 gm/day Physical Assessment Findings: appears well nourished Nutrition - Pertinent Medical History/Diagnoses: 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 Pertinent Meds: laxative, Coumadin and KCl Pertinent Labs Last Chem10 results: Lab Results Component Value Date/Time ??? SODIUM 136 05/30/10 12:28 PM ??? K 3.4* 05/30/10 12:28 PM ??? CHLORIDE 99 05/30/10 12:28 PM ??? CO2 31* 05/30/10 12:28 PM ??? BUN 19 05/30/10 12:28 PM ??? CREATININE 1.11 05/30/10 12:28 PM ??? GLUCOSE 85 05/30/10 12:28 PM ??? CA 8.3* 05/30/10 12:28 PM ??? ANIONGAP 6 05/30/10 12:28 PM ??? MG 2.1 05/07/10 6:05 AM ??? PHOS 3.7 05/07/10 6:05 AM Basename 05/22/10 1205 CRP 5.7* Basename 05/22/10 1205 ESR 87* --- End of Report --- Initial Assessments - Corrie Buckner, PT - 05/31/2010 12:[address] [facility] Physical Therapy Evaluation Patient Seen: bedside Diagnosis: Encounter Diagnoses Code Name Primary? 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 06426 CAREPLAN: BACLOFEN ??? 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 781.0AM Spasticity Subjective Residence: pt lives in a wheelchair accessible home. Assist Available: Spouse Prior level of function: pt has assist for transfers with use of a sliding board. Equipment: motorized wheelchair, manual wheelchair, sliding board, also has a floor to ceiling pole by his bed to assist with transfers. Pt has grab bars in the bathroom. Pt also has a wheelchair accessible van. Objective: Current Level of Function Bed Mobility: Pt used the grab rail and mod assist of another person. Transfers: Transfers with min assist from bed to wheelchair with use of a sliding board and from wheelchair to bed with mod assist with the sliding board. Pt's spouse demonstrated ability to assist pt. Pt's spouse has been assisting him at home. Wheelchair Mobility: NT but pt states he is able to propel his wheelchair and also has a motorized wheelchair. Ambulation: Not appropriate Stairs: Not appropriate Toileting Needs: no needs Action Taken: N/A Balance and Coordination: Pt requires use of bilateral UE for support when sitting. ROM (lower extremity): Within functional limits. Manual Muscle Test/Strength (lower extremity): 0/5 strength of bilateral LE. Endurance: Endurance is Within functional limits. Neurological Sensation: Not tested Tone: 1/5 on the joann scale for all motions. Perception/Cognition/Orientation: patient alert and patient oriented to person/self, place, date/time and situation Action Taken: no action needed Pain Pt stated his back felt tight but that is normal for him. Action Taken: patient willing to continue with therapy Tolerance: Good Education Provide education regarding role of physical therapy during hospitalization Provide support and encouragement and answered questions related to rehab course Adaptive Equipment Recommendations Pt will benefit from use of: pt has all his equipment. Patient Position: in wheelchair, with call light available, pt's present. Assessment and Recommendations 65 yr old male admitted to have his baclofen pump removed due to a continued infection. Pt lives in a wheelchair accessible home, has assist from his , has all the appropriate equipment. Pt stated he feels his current strength of bilateral UE is about 60-65% of his normal, but both pt and his wifefeel comfortable with taking the patient home. Pt is safe to DC home with his spouse as she demonstrated the ability to safely assist him. Recommend further PT for balance training and transfer training to progress pt back to his baseline requiring only SBA for transfers. Will continue PT while pt is in acute care. Pt and are in agreement with plan. Plan of care Continue Physical Therapy daily for functional mobility and safety. Goals 1. Pt will transfer wheelchair to bed with min assist and bed to wheelchair with CGA. Patient/Family Goals: To go home Amount of time spent in patient contact: AM: 35 minutes. Corrie Buckner PT Phone number is [phone] Pager: Pager number is: [phone] --- End of Report --- Initial Assessments - Cheli Ruiz RN - 05/26/2010 1:50 PM CDT [facility] Med-Surg / ICU / Rehab / Burn Nursing Initial Assessment Note GENERAL INFORMATION/PATIENT IDENTIFICATION/HISTORY Actual Arrival Date on Unit: 05/26/10 Actual Arrival Time on Unit: 1158 Patient a transfer from another hospital for trauma?: No Primary Care Physician or Clinic: [facility] Patient Identity Confirmed By: Full name including last, first, and middle Source of Identifying Information: Patient;Family Person (first/last name/phone number) who can help make medical decisions or help in care after hospitalization?: Recent Exposure to Communicable Diseases?: No History for Resistant Organism?: None Herbal Medications?: No Allergies: Zaroxolyn and Oxycodone Prescriptions prior to admission Medication Sig ??? acetaminophen (AKA TYLENOL) 325 MG tablet Take 1-2 Tabs by mouth every 4 hours as needed for Pain. ??? atorvastatin (LIPITOR) 40 MG tablet Take 1 Tab by mouth daily. ??? baclofen (AKA LIORESAL) 10 MG tablet Take 1 Tab by mouth. Wean schedule: Take 10mg three times a day for 6 doses, then 10mg twice a day for 4 doses, then 10mg daily for 2 days, then 10mg twice daily NEEDED ??? BACLOFEN IT 220 mcg by Intrathecal route daily. ??? citalopram (AKA CELEXA) 40 MG tablet Take 40 mg by mouth daily. ??? cyclobenzaprine (AKA FLEXERIL) 10 MG tablet Take 1 Tab by mouth three times a day as needed for Muscle Spasms. ??? docusate sodium (AKA ENEMEEZ) 283 MG enema Insert 5 mL rectally daily as needed. PT. USES ENEMA EVERY OTHER DAY. ??? doxycycline hyclate (AKA VIBRA-TABS) 100 MG tablet Take 1 Tab by mouth two times a day. ??? enoxaparin (AKA LOVENOX) 100 mg/mL Inject 1 mL subcutaneously every 24 hours. ??? ferrous sulfate 325 (65 FE) MG tablet Take 1 Tab by mouth daily with breakfast. ??? Gabapentin (AKA NEURONTIN) 100 MG tablet Take 2 Tabs by mouth three times a day. ??? hydrocodone-acetaminophen (AKA VICODIN,LORTAB) 5-500 MG tablet Take 1-2 Tabs by mouth every 4 hours as needed for Pain. ??? lactulose 10 GM/15ML solution Take 30 mL by mouth two times a day as needed. For constipation ??? LORazepam (AKA ATIVAN) 0.5 MG tablet Take 2 Tabs by mouth three times a day. ??? OMEGA-3 FATTY ACIDS OR Take 1 Cap by mouth daily. ??? povidone-iodine (AKA BETADINE) 10 % external solution Apply topically two times a day. ? ? senna (AKA SENOKOT) 8.6 MG tablet Take 2 Tabs by mouth daily. USES 3 TABS IN THE AM & 2 TABSAT HS EVERY OTHER DAY. ??? TRIMETHOPRIM OR Take 100 mg by mouth daily. ??? warfarin (AKA COUMADIN) 5 MG tablet Take 1 Tab by mouth daily. Adjust dose based on INR result as directed. IMMUNIZATION ASSESSMENT Influenza Assessment Current Date is Between July 20 - April 10?: (not recorded) Pneumococcal Assessment Assessment of Age/Risk Factors: (not recorded) H1N1 Influenza Assessment Vaccine Status: (not recorded) HEAD TO TOE ASSESSMENT Neurological Neuro Assessment: Sensation Sensation: Other (see comments) (no sensation le) EENT Head/Neck Assessment: (c/o headache) Eye Assessment: Vision impairment Glasses and/or contacts?: Glasses - with patient Ear Assessment: No apparent abnormalities Nose Assessment: No apparent abnormalities Throat/Mouth Assessment: No apparent abnormalities Patient have special speech, hearing, or vision needs?: No special needs identified Respiratory Respiratory Assessment: No apparent abnormalities Cough?: No Sputum?: No Respiratory Needs Likely at Discharge?: No Cardiovascular Cardiovascular Assessment: No apparent abnormalities Gastrointestinal/Nutrition Date of Last Bowel Movement: 05/26/10 GI/Nutritional Assessment: No apparent abnormalities Diet History: Regular diet Diet History Additional Information: (not recorded) Nutrition Consult Screening: No GI/nutrition screening criteria applicable Genitourinary Assessment: Indwelling catheter Arnol Scale Sensory Perception: 3 Moisture Exposure: 3 Activity: 1 Mobility: 2 Nutrition: 2 Friction/Shear: 2 Arnol Score: 13 Integumentary Integumentary Assessment: (not recorded) Musculoskeletal Musculoskeletal Assessment: Other (see comments) Musculoskeletal Assessment Additional Information: (le no movement ) MD notified of potential rehab or PT/OT needs due to mobility?: Yes (yes has spasms) PAIN Patient Experiencing Pain?: (not recorded) FUNCTIONAL Recent changes in level of ADLs?: (not recorded) Eating - Current Level of Assist: (not recorded) Activity - Current Level of Assist: (not recorded) Elimination - Current Level of Assist: (not recorded) Hygiene - Current Level of Assist: (not recorded) Functional Screening: (not recorded) PSYCHOSOCIAL/SPIRITUAL/EVANGELICAL/CULTURAL/ABUSE/CHEMICAL Suicide Health Inventory Do you currently have or recently had thoughts of harming or killing yourself?: (not recorded) For nursing interventions, see policy: PC:12:10 History Alcohol Use No History Drug Use No Mental Health Assessment: (not recorded) Occupation: (not recorded) Lives: (not recorded) Living Situation: (not recorded) Social Screening: (not recorded) Any agencies or community support services involved prior to admission?: (not recorded) Guardianship issues affecting care planning?: (not recorded) Burn Patient?: (not recorded) Patient have children who will be visiting during hospitalization?: (not recorded) Is the nurse aware, at present, of any needs or issues for which support from the hospital manager supplier might be helpful to patient and/or family? (e.g. need or desire for spiritual support, difficulty coping, end 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, grief/loss, etc.): (not recorded) Cultural practices that affect patient care (per Best Care Questionnaire)?: (not recorded) Abuse/Assault Screening: (not recorded) Chemical Use Screening: (not recorded) SAFETY Falls Risk Assessment Patient: (not recorded) Restraints Assessment Restraint Risks: (not recorded) Patient behaviors that put them at risk for restraint use?: (not recorded) I acknowledge that the above adult initial assessment is complete. Yes, the above assessment is complete. documented in this encounter Administered Medications Inactive Administered Medications - up to 3 most recent administrations Medication Order MAR Action Action Date Dose Rate Site acetaminophen (aka TYLENOL) Given 05/31/2010 10:45 PM CDT 650 mg tablet 325-650 mg 325-650 mg, Oral, Q4H PRN, Pain/Fever, Starting on Sat05/26/10 at 1035, Until Sat06/01/10 at 1516, Maximum Daily Acetaminophen dose for patients > 53 k grams per 24 hours Maximum Daily Acetaminophen dose for patients < 53 k mg/kg/day This includes all sources of acetaminophen such as acetaminophen with codeine, acetaminophen with hydrocodone and acetaminophen with oxycodone. Given 05/31/2010 9:00 AM CDT 650 mg Given 05/31/2010 2:12 AM CDT 650 mg atorvastatin (aka LIPITOR) tablet 40 mg Given 05/31/2010 8:00 PM CDT 40 mg 40 mg, Oral, DAILY - 1999, First dose (after last reorder) on Sat05/26/10 at 2000, Until Discontinued Given 05/30/2010 8:00 PM CDT 40 mg Given 05/29/2010 8:00 PM CDT 40 mg baclofen (aka LIORESAL) tablet 10 mg Given 06/01/2010 1:03 PM CDT 10 mg 10 mg, Oral, TID, First dose (after last modification) on Sat05/30/10 at 1400, Until Discontinued Given 06/01/2010 8:10 AM CDT 10 mg Given 05/31/2010 8:00 PM CDT 10 mg baclofen (aka LIORESAL) tablet 20 mg Given 05/26/2010 8:00 PM CDT 20 mg 20 mg, Oral, BID, First dose on Sat05/26/10 at 1107, Last dose on Sat05/26/10 at 2000, For 1 day Given 05/26/2010 2:30 PM CDT 20 mg baclofen (aka LIORESAL) tablet 20 mg Given 05/30/2010 8:00 AM CDT 20 mg 20 mg, Oral, TID, First dose on Sat05/27/10 at 0800, Until Discontinued Given 05/29/2010 8:00 PM CDT 20 mg Given 05/29/2010 3:00 PM CDT 20 mg citalopram (aka CELEXA) tablet 40 mg Given 06/01/2010 8:10 AM CDT 40 mg 40 mg, Oral, DAILY, First dose on Sat05/26/10 at 1046, Until Discontinued Given 05/31/2010 8:00 AM CDT 40 mg Given 05/30/2010 8:00 AM CDT 40 mg docusate sodium (aka ENEMEEZ) enema 283 mg Given 05/30/2010 1:35 PM CDT 283 mg 283 mg (1 Enema), Rectal, DAILY PRN, Constipation, Starting on Sat05/26/10 at 1036, Until [place] 06/01/10 at 1516, as stool-softner Given 05/27/2010 2:50 PM CDT 283 mg Given 05/27/2010 12:00 AM CDT 283 mg doxycycline hyclate (aka VIBRA-TABS) tablet Given 05/12 10:00 AM CDT 100 mg 100 mg 100 mg, Oral, BID, First dose on Sat05/26/10 at 1046 Given 05/29/2010 10:00 PM CDT 100 mg Given 05/29/2010 10:19 AM CDT 100 mg enoxaparin (aka LOVENOX) injection 100 m g Given 05/27/2010 8:00 AM CDT 100 mg 100 mg, Subcutaneous, DAILY, First dose on Sat05/26/10 at 1213 enoxaparin (aka LOVENOX) injection 100 m g Given 05/28/2010 8:00 AM CDT 100 mg 100 mg, Subcutaneous, DAILY, First dose (after last modification) on Sat05/28/10 at 0800, For 1 dose, Last dose 05/28 am, hold thereafter enoxaparin (aka LOVENOX) injection 100 m g Given 06/01/2010 12:00 PM CDT 100 mg 100 mg, Subcutaneous, Q12H, First dose on Sat05/31/10 at 1008 Given 05/31/2010 9:00 PM CDT 100 mg Given 05/31/2010 11:30 AM CDT 100 mg ferrous sulfate tablet 325 mg Given 05/27/2010 8:00 AM CDT 325 mg 325 mg, Oral, QDAY WITH MEAL, First dose on Sat05/26/10 at 1046, Until Discontinued gabapentin (aka NEURONTIN) capsule 200 m g Given 06/01/2010 1:03 PM CDT 200 mg 200 mg, Oral, TID, First dose on Sat05/26/10 at 2000, Until Discontinued Given 06/01/2010 8:10 AM CDT 200 mg Given 05/31/2010 8:00 PM CDT 200 mg gabapentin (aka NEURONTIN) capsule 200 m g Given 05/26/2010 5:15 PM CDT 200 mg 200 mg, Oral, ONCE, On Sat05/26/10 at 1449, For 1 dose, For afternoon dose if needed. heparin injection 400 Units Given 06/01/2010 8:10 AM CDT 400 Units 400 Units (4 mL), Intravenous, BID, First dose on Sat05/31/10 at 1038, To each lumen as appropriate Given 05/31/2010 8:00 PM CDT 400 Units Given 05/31/2010 10:38 AM CDT 400 Units lactated ringers infusion 1,000 mL Given 05/26/2010 8:14 AM CDT 1,000 mL 30 mL/hr 1,000 mL, Intravenous, at 30 mL/hr, PACU, Starting on Sat05/26/10 at 0808, Continuous lactated ringers infusion 1,000 mL Given 05/29/2010 11:30 AM CDT 1,000 mL 30 mL/hr 1,000 mL, Intravenous, at 30 mL/hr, PACU, Starting on Sat05/29/10 at 1127, Continuous lactulose oral liquid 20 g Given 05/30/2010 12:35 PM CDT 20 g 20 g, Oral, BID PRN, constipation, Starting on Sat05/26/10 at 1037, Until [place] 06/01/10 at 1516 Given 05/27/2010 12:20 PM CDT 20 g lidocaine-epinephrine [id number]:[id number] % injection 3 Given 0 05/26/2010 10:16 AM CDT 3 mL mL 3 mL, Subcutaneous, INTRA-OP, Starting on Sat05/26/10 at 1259, For 1 dose, Hazardous waste. [facility]: dispose of in Black Box. LORazepam (aka ATIVAN) tablet 1 mg Given 06/01/2010 1:03 PM CDT 1 mg 1 mg, Oral, TID, First dose on Sat05/26/10 at 1400, Until Discontinued Given 06/01/2010 8:10 AM CDT 1 mg Given 05/31/2010 8:00 PM CDT 1 mg nystatin (aka MYCOSTATIN) topical powder Given 06/01/2010 8:10 AM CDT Topical, BID, First dose on Sat05/31/10 at 1008, Until Discontinued Given 05/31/2010 8:00 PM CDT Given 05/31/2010 11:30 AM CDT ondansetron (aka ZOFRAN) injection 4 mg Given 05/27/2010 2:10 PM CDT 4 mg 4 mg, Intravenous, Q4H PRN, Nausea, Vomiting, Starting on 05/27/10 at 1324 polyethylene glycol 3350 (aka GLYCOLAX) powder Given 0 06/01/2010 8:10 AM CDT 17 g 17 g 17 g, Oral, DAILY, First dose on Sat05/26/10 at 1417 Given 05/31/2010 8:00 AM CDT 17 g Given 05/30/2010 8:00 AM CDT 17 g potassium chloride (aka K-CHARU) packet 20 mEq Given 06/01/2010 9:00 AM CDT 20 mEq 20 mEq, Oral, BID PC, First dose on Sat05/30/10 at 1800, Mix with 6-8 oz water before administering. Given 05/31/2010 6:00 PM CDT 20 mEq Given 05/31/2010 9:00 AM CDT 20 mEq senna (aka SENOKOT) tablet 17.2 mg Given 06/01/2010 8:10 AM CDT 17.2 mg 17.2 mg (2 Tablet), Oral, BID, First dose (after last modification) on Sat05/26/10 at 2000, Until Discontinued, as laxative/stimulant agent Given 05/31/2010 8:00 PM CDT 17.2 mg Given 05/31/2010 8:00 AM CDT 17.2 mg vancomycin (aka VANCOCIN) 1,500 mg in NaCl Given 05/31 4:25 PM CDT 1,500 mg 0.9 % 500 mL IV PIGGYBACK Administer over 90 Minutes, Intravenous, Q12H (NON-STND), First dose on Sat05/30/10 at 1600, Until Discontinued Given 05/31/2010 4:00 AM CDT 1,500 mg Given 05/30/2010 6:45 PM CDT 1,500 mg vancomycin (aka VANCOCIN) 2,500 mg in NaCl Given 06/01 8:10 AM CDT 2,500 mg 0.9 % 500 mL IV PIGGYBACK Administer over 120 Minutes, Intravenous, Q24H, First dose (after last modification) on Sat06/01/10 at 0800, Until Discontinued vancomycin (aka VANCOCIN) injection 1 g Given 05/29/2010 12:30 PM CDT 1 g 1 g, Intravenous, SDS, Starting on Sat05/29/10 at 1217, For 1 dose, Resident or attending surgeon must be contacted first before giving vancomycin PRE-OP ANTIBIOTIC warfarin (aka COUMADIN) tablet 10 mg Given 05/31/2010 4:00 PM CDT 10 mg 10 mg, Oral, WARFARIN - DAILY, First dose on Sat05/31/10 at 1600, Last dose on Sat05/31/10 at 1600, For 1 dose, Hazardous waste, dispose of in black box. Vitamin K antagonizes the effects of warfarin. Maintain consistent intake of vitamin K in the diet. documented in this encounter Active and Recently Administered Medications Times are shown in CDT. Scheduled Medication Order 05/30/2010 05/31/2010 06/01/2010 atorvastatin (aka LIPITOR) tablet 40 mg (CANCELED) 200 0 (Given - Provider: Milo Salinas RN) 1999 (Given - Provider: Milo Salinas RN) 40 mg, Oral, STATIN - 1999, First dose o n Sat05/26/10 at 2000, Until Discontinued baclofen (aka LIORESAL) tablet 10 mg 1400 (Given - Pro vider: Malathi Domingo RN)1999 (Given - Provider: Milo Salinas RN) 0800 (Given - Provider: Priti Hickey RN)1400 (Given - Provider: Priti Hickey RN)1999 (Given - Provider: Milo Salinas RN) 0810 (Given - Provider: Priti clark RN)1303 (Given - Provider: Priti Hickey RN) 10 mg, Oral, TID, First dose on Sat05/30/10 at 1400, Until Disco ntinued baclofen (aka LIORESAL) tablet 20 mg (CANCELED) 0800 ( Given - Provider: Malathi Domingo RN) 20 mg, Oral, TID, First dose on Sat05/27/10 at 0800, Until Disco ntinued citalopram (aka CELEXA) tablet 40 mg (CANCELED) 0800 ( Given - Provider: Malathi Domingo RN) 0800 (Given - Provider: Priti Hickey RN) 0810 ( Given - Provider: Priti Hickey RN) 40 mg, Oral, DAILY, First dose on Sat05/26/10 at 1046, Until Dis continued doxycycline hyclate (aka VIBRA-TABS) tablet 100 mg (CA NCELED) 1000 (Given - Provider: Malathi Domingo RN) 100 mg, Oral, BID, First dose on Sat05/26/10 at 1046, Until Disc ontinued enoxaparin (aka LOVENOX) injection 100 mg 1130 (Given - Provider: Priti Hickey RN)2100 (Given - Provider: Milo Salinas RN) 1200 (Given - Provider: Priti Hickey RN) 100 mg, SC, Q12H, First dose on Sat05/31/10 at 1008, Until Disco ntinued gabapentin (aka NEURONTIN) capsule 200 mg (CANCELED) 0 800 (Given - Provider: Malathi Domingo RN)1400 (Given - Provider: Malathi Domingo RN)2000 (Given - Provider: Milo Salinas RN) 0800 (Given - Provider: Priti clark RN)1400 (Given - Provider: Priti Hickey RN)1999 (Given - Provider: Milo Salinas RN) 0810 (Given - Provider: Priti clark RN)1303 (Given - Provider: Priti Hickey RN) 200 mg, Oral, TID, First dose on Sat05/26/10 at 2000, Until Disc ontinued heparin injection 400 Units (CANCELED) 1 038 (Given - Provider: Priti Hickey RN - Comment: by PICC nurse)1999 (Given - Provider: Milo Salinas RN) 0810 (Given - Provider: Priti Hickey RN) 4 mL = 400 Units, IV, BID, First dose on Sat05/31/10 at 1038, Until Discontinued LORazepam (aka ATIVAN) tablet 1 mg (CANCELED) 0800 (Gi lore - Provider: Malathi Domingo RN)1400 (Given - Provider: Malathi Domingo RN)1999 (Given - Provider: Milo Salinas RN) 0800 (Given - Provider: Priti clark RN)1400 (Given - Provider: Priti Hickey RN)1999 (Given - Provider: Milo Salinas RN) 0810 (Given - Provider: Priti Hickey RN)1303 (Given - Provider: Priti iHckey RN) 1 mg, Oral, TID, First dose on Sat05/26/10 at 1400, Until Discon tinued nystatin (aka MYCOSTATIN) topical powder (CANCELED) 1130 (Given - Provider: Priti Hickey RN)1999 (Given - Provider: Milo Salinas RN) 0810 (Given - Provider: Priti Hickey RN) Topical, BID, First dose on Sat05/31/10 at 1008, Until Discontin ued polyethylene glycol 3350 (aka GLYCOLAX) powder 17 g (C ANCELED) 0800 (Given - Provider: Malathi Domingo RN) 0800 (Given - Provider: Priti Hickey RN) 0810 (Given - Provider: Priti Hickey RN) 17 g, Oral, DAILY, First dose on Sat05/26/10 at 1417, Until Disc ontinued potassium chloride (aka K-CHARU) packet 20 mEq (CANCELED ) 1650 (Given - Provider: Tania Cerda RN) 0900 (Given - Provider: Priti clark RN)1800 (Given - Provider: Priti Hickey RN) 0900 (Given - Provider: Priti clark RN) 20 mEq, Oral, BID PC, First dose on Sat05/30/10 at 1800, Until D iscontinued senna (aka SENOKOT) tablet 17.2 mg (CANCELED) 0800 (Gi lore - Provider: Malathi Domingo RN)1999 (Given - Provider: Milo Salinas RN) 0800 (Given - Provider: Priti Hickey RN)1999 (Given - Provider: Milo Salinas RN) 0810 (Given - Provider: Priti Hickey RN) 2 Tab = 17.2 mg, Oral, BID, First dose o n Sat05/26/10 at 2000, Until Discontinued vancomycin (aka VANCOCIN) 1,500 mg in NaCl 0.9 % 500 m L IV PIGGYBACK (CANCELED) 1845 (Given - Provider: Tania Cerda RN) 0400 (Given - Provider: Nakita Dwyer RN)1625 (Given - Provider: Priti Hickey RN) for 90 Minutes, IV, Q12H (NON-STND), Fir st dose on Sat05/30/10 at 1600, Until Discontinued vancomycin (aka VANCOCIN) 2,500 mg in NaCl 0.9 % 500 m L IV PIGGYBACK (CANCELED) 0810 (Given - Provider: Letty Hickey RN) for 120 Minutes, IV, Q24H, First dose on Sat06/01/10 at 0800, Until Discontinued warfarin (aka COUMADIN) tablet 10 mg (COMPLETED) 1600 (Given - Provider: Priti Hickey RN) 10 mg, Oral, WARFARIN - 1600, 1 dose, First dose on Sat05/31/10 at 1600 PRN Medication Order 05/30/2010 05/31/2010 06/01/2010 acetaminophen (aka TYLENOL) tablet 325-650 mg (CANCELE D) 1649 (Given - Provider: Tania Cerda RN) 0212 (Given - Provider: Alejandro Danielle)0900 (Given - Provider: Priti Hickey RN)2245 (Given - Provider: Milo Salinas RN) 325-650 mg, Oral, Q4H PRN, Starting Sat05/26/10 at 1035, Until Discontinued, Pain/Fever docusate sodium (aka ENEMEEZ) enema 283 mg (CANCELED) 1335 (Given - Provider: Malathi Domingo RN) 1 Enema = 283 mg, Rectal, DAILY PRN, Sta rting Sat05/26/10 at 1036, Until Discontinued, Constipation lactulose oral liquid 20 g (CANCELED) 1235 (Given - Pr ovider: Malathi Domingo RN) 20 g, Oral, BID PRN, Starting Sat 0 at 1037, Until Discontinued, constipation documented in this encounter
--- OUTSIDE RECORDS SUMMARY | 2022-06-20 02:32 | XMS_ITS | Encounter Summary ---
:1945 Author Organization [facility] Address [address] [address] Care Team Providers Name Role Phone Unavailable Primary Care Provider Unavailable Encounter Details Date Type Department Care Team Description 06/12/2010 Therapy External to Physical Therapy, Provider Social History Tobacco Use Types Packs/Day Years Used Date Smoking Tobacco: Never Alcohol Use Standard Drinks/Week Comments No 0 (1 standard drink = 0.6 oz pure alcoho l) Sex Assigned at Date Recorded Male 08/06/2021 5:59 PM CDT documented as of this encounter Progress Notes Interface, In Chrtscr And Scan - 06/28/2010 12:38 PM CDT documented in this encounter Plan of Treatment Not on filedocumented as of this encounter Visit Diagnoses Not on filedocumented in this encounter
--- OUTSIDE RECORDS SUMMARY | 2022-06-20 02:32 | XMS_ITS | Encounter Summary ---
:1945 Author [facility] Address [address], [place] [address] Care Team Providers Name Role Phone Unavailable Primary Care Provider Unavailable Reason for Visit Reason Comments Revisit F/U Encounter Details Date Type Department Care Team Description 07/27/2010 Office Visit Specialty Center Garry Neff ndymoma (Primary 401 NeuroSurgery X, Dx) [address] [place] [address] [place], [place] [phone] (Wo rk) Social History Tobacco Use Types Packs/Day Years Used Date Smoking Tobacco: Never Alcohol Use Standard Drinks/Week Comments No 0 (1 standard drink = 0.6 oz pure alcoho l) Sex Assigned at Date Recorded Male 08/06/2021 5:59 PM CDT documented as of this encounter Last Filed Vital Signs Vital Sign Reading Time Taken Comments Blood Pressure 120/70 07/27/2010 11:35 AM CDT Pulse 120 07/27/2010 11:35 AM CDT Temperature - - Respiratory Rate 18 07/27/2010 11:35 AM CDT Oxygen Saturation - - Inhaled Oxygen Concentration - - Weight - - Height - - Body Mass Index - - documented in this encounter Patient Instructions Patient InstructionsSelene Johnson RN - 07/27/2010 11:59 AM CDT Neurosurgery/Spine Clinic Patient Instructions There is a fluid collection at this point does not recommend any surgery at this time. Stop at the first floor for the CD of your MRI's to take to [facility]. Follow up with Dr. Garry Neff, please verify with [facility] weather they would like to start chemo-we can coordinate the MRIs that [facility] recommends-just send us the dictation-to let us know how things are going. In 3 months with MRI prior to evaluate the spine-we would recommend this can be completed at On license of [facility]. If tests were ordered, they will be reviewed at your next office visit. Please allow 10-14 days for forms to be completed and 2-3 business days for medication refills. Please call the Neurosurgery/Spine Clinic at [phone] with any further questions or concerns. documented in this encounter Progress Notes Garry Neff X - 09/12/2010 9:07 PM CDT Lucy Lanza PA-C, am acting as a tactical deception plans officer for Dr. Neff who is personally here with me while writting this note This is a dictation on Carl Cullen is a 65 yr old male [id number] 1945 Chief Complaint: Follow up Carl Cullen is a 65 yr old [...] 10 days following the procedure. Currently pt denies having any pain issues, only admits to a feeling of tightness. Takes APAP prn for pain control with good relief. Objective: BP 120/70 Pulse 120 Resp 18 The incision site appears clean and intact Imaging: Thoracic MRI: 1. There is a peripherally enhancing multiseptated fluid collection in the posterior paraspinal soft tissues in the upper thoracic region which has decreased significantly in size compared to 04/29/2010 and 05/26/2010. 2. Upper thoracic laminectomies with resection of a segment of the upper thoracic cord. 3. There is atrophic changes in the mid thoracic cord. 4. There is a focal area of increased signal with mild enlargement of the distal thoracic cord without pathologic contrast enhancement. 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 On May 09, 2010 we replaced the catheter of the baclofen pump due to meningitis. On May 29, 2010 we removed the baclofen pump and catheter Plan Pt was seen and evaluate by Dr. Neff Pt is doing well; he has appointments at [facility] for Oncology follow up We advised he get a CD of MRIs to take with him to his appointment We request dictations of appointments to be sent to us F/u in 3 months with Thoracic MRI prior to appointment Dr. Neff discussed the plan in full with pt and answered all questions Lucy Parker PA-C Agree with above Garry Neff MD documented in this encounter Nursing Notes 07/27/2010 11:00 AM CDT >> Beth Jeffery CMA [facility] Jul 27, 2010 11:37 AM Patient returns to the clinic for follow up appointment. This appointment is not work comp related. Patient had MRI Thoracic completed on 07/27/2010 @ [facility]. Patient rates pain 0. Only has sensation on tightness in his back. Conservative measures that patient has completed are none at this time. Patient is currently taking Tylenol medications with good relief. Patient needs no forms filled out. Other concerns are plan of care. 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
--- OUTSIDE RECORDS SUMMARY | 2022-06-20 02:32 | XMS_ITS | Encounter Summary ---
:1945 Author Organization [facility] Address [address], [place] [address] Care Team Providers Name Role Phone Unavailable Primary Care Provider Unavailable Encounter Details Date Type Department Care Team Description 07/13/2010 Therapy External to Physical Therapy, Provider Social History Tobacco Use Types Packs/Day Years Used Date Smoking Tobacco: Never Alcohol Use Standard Drinks/Week Comments No 0 (1 standard drink = 0.6 oz pure alcoho l) Sex Assigned at Date Recorded Male 08/06/2021 5:59 PM CDT documented as of this encounter Progress Notes Interface, In Chrtscr And Scan - 08/15/2010 3:18 PM CDT documented in this encounter Plan of Treatment Not on filedocumented as of this encounter Visit Diagnoses Not on filedocumented in this encounter
--- OUTSIDE RECORDS SUMMARY | 2022-06-20 02:32 | XMS_ITS | Encounter Summary ---
:1945 Author Organization [facility] Address [address] [place] [address] Care Team Providers Name Role Phone Unavailable Primary Care Provider Unavailable Reason for Visit Reason Onset Date Comments FEVER 06/06/2010 Encounter Details Date Type Department Care Team Description 06/06/2010 Telephone Careline Margo Del Toro RN FEVER [address] [place], [place] [address] Social History Tobacco Use Types Packs/Day Years Used Date Smoking Tobacco: Never Alcohol Use Standard Drinks/Week Comments No 0 (1 standard drink = 0.6 oz pure alcoho l) Sex Assigned at Date Recorded Male 08/06/2021 5:59 PM CDT documented as of this encounter Nursing Notes Selene Johnson RN - 06/08/2010 1:03 PM CDT Returned call to Heather and she stated that at this point her had a low grade fever this am 100.0 however since this am he had been afebrile and states that he is feeling better. She stated that She will call with any other concerns or questions.Selene Johnson RN 06/08/2010, 12:48 PM Selene Johnson RN - 06/07/2010 2:01 PM CDT returned call with the results of the patients labs and chest x-rays. CXR was negative for any infiltrate-the UA/UC WBC-5-10 red blood cell 2-5 Bacteria negative for bacteria-lab work creatine1.6. Dr. Murry will start this patient on Rocefin 1 gram, she will fax the completed lab work and test results to [facility] Neuro[facility] clinic. If the team has any questions she can be reached at [phone]. This publications writer did explain that we would continue to keep in touch with the patient and his to verify his condition. She will call the clinic with any updates also.Selene Johnson RN 06/07/2010,2:01 PM Loretta Godinez RN - 06/07/2010 11:57 AM CDT returned call. Pt is at the infusion center, He went to the ED where they have drawn blood cultures UA and CXR Pt had fever of slightly over 102 this am which reduced with Tylenol. will have hospital fax test results to Dr Neff at the clinic. Cell phone number [phone]. voiced understanding and agrees with plan.Loretta Godinez RN Loretta Godinez RN - 06/07/2010 10:57 AM CDT Call placed to . Message left on home phone Message states to try cell number Message at that number states number not in service We will try later to check on fever Pt to have a UA/UC to check forurinary tract infection causing fever.Loretta Godinez RN AT Margo Del Toro RN - 06/06/2010 7:45 PM CDT Emergency transfer from administrative assistant receptionist Started the IV Vancomycin last week on ? 05/31 , discharged on 06/[address] [facility], Dr Gurinder Neff Admitted for meningitis - dx 2 weeks earlier and never got better. On 05/26 another LP was done and he had a pump system removed and Vancomycin started. He goes daily to the [facility] Temp 10 1.6 at 7:15 pm - he had tylenol about an hour ago for a mild headache between his eyes. Temp right now 101.4 and he feels OK, headache is better Legs are a bit puffy today but that occurs freq and when he goes to bed at night it decreases Catheter in and it is a bit less than nl He is a paraplegic and in a w/c - he is up most of the day TRIAGE REFERENCE: FEVER - ADULT CNG (c) 2008 STAT SYMPTOMS: None per guideline Dr. Clifton Galindo, Neurosurgery on-call MD, paged at 7:39 PM Consulted at 7:48 PM - discussed concerns. Can get red man syndrome and flushing from Vancomycin. If he looks like he did when he was admitted he should be taken back to [facility] ED now, if not do the home tx with tylenol and monitor. He may have something else going on like a UTI - have her watch him closely. Route encounter to Dr Neff Care Team and he will ask clinic nurse to call pt on 06/07 to see how he is doing. CB to spouse - discussed MD recommendations. She stated he does not look like he did when he was admitted. He has had a slight decrease in urine today and she wondered if he might have a uti - she plans to ask for a UA to be done tomorrow when hehas his IV Vancomycin. Plan; consult Home tx discussed Encounter routed to Dr Neff Care Team/Dr aGlindo request - nurse from clinic will cb to pt on 06/07 to see how he is doing Advised [facility] ED tonight if sx worsening at all Patient/caller encouraged to call back to the Careline at # [phone] with any questions and advised to call back or seek immediate care for worsening symptoms. Patient/caller encouraged to follow up with PCP/Clinic as needed . Patient/caller verbalized understanding of recommendations and is agreeable to plan. Margo Del Toro RN [facility] documented in this encounter Plan of Treatment Not on filedocumented as of this encounter Visit Diagnoses Not on filedocumented in this encounter
--- OUTSIDE RECORDS SUMMARY | 2022-06-20 02:32 | XMS_ITS | Encounter Summary ---
:1945 Author Organization [employer] Address [address] [place] [address] Care Team Providers Name Role Phone Unavailable Primary Care Provider Unavailable Encounter Details Date Type Department Care Team Description 05/31/2010 Imaging [facility] [address] [place] [id number] Social History Tobacco Use Types Packs/Day Years Used Date Smoking Tobacco: Never Alcohol Use Standard Drinks/Week Comments No 0 (1 standard drink = 0.6 oz pure alcoho l) Sex Assigned at Date Recorded Male 08/06/2021 5:59 PM CDT documented as of this encounter Plan of Treatment Not on filedocumented as of this encounter Procedures Procedure Name Priority Date/Time Associated Comments Diagnosis XR PORTABLE CHEST Discharge 05/31/2010 11:11 Result s for this 1 VIEW Decision AM CDT procedure are i n the results section. documented in this encounter Results XR PORTABLE CHEST 1 VIEW to verify [...] SVC. Lungs are clear. Heart is normal. Garry Neff MD RAD PORTABLE documented in this encounter Visit Diagnoses Not on filedocumented in this encounter
--- OUTSIDE RECORDS SUMMARY | 2022-06-20 02:32 | XMS_ITS | Encounter Summary ---
:1945 Author Organization [email or web address] Address [address], [place] [address] Care Team Providers Name Role Phone Unavailable Primary Care Provider Unavailable Reason for Visit Reason Onset Date Comments Orders Needed 09/04/2010 Encounter Details Date Type Department Care Team Description 09/04/2010 Telephone Specialty Center Garry Whitley MD Orders Needed NeuroSurgery [address] [place] [address] [place] [address] [phone] Social History Tobacco Use Types Packs/Day Years Used Date Smoking Tobacco: Never Alcohol Use Standard Drinks/Week Comments No 0 (1 standard drink = 0.6 oz pure alcoho l) Sex Assigned at Date Recorded Male 08/06/2021 5:59 PM CDT documented as of this encounter Nursing Notes Loretta Godinez RN - 09/04/2010 2:22 PM CDT Orders were placed for thoracic MRI with and without contrast. Follow up appt with Dr Neff in Mid to late October. We will have MOA schedule and call patient with information.Loretta Godinez RN Sweetie Sterling - 09/04/2010 12:16 PM CDT Patient's calling [facility] 3 mo f/u and MRI, which was to be done at if no chemo needed at [place]. No order for mri in. documented in this encounter Plan of Treatment Not on filedocumented as of this encounter Results MR THORACIC SPINE WITH/WITHOUT CONTRAST (11/06/2010 12:05 PM LOG [employer] CH[employer]EDER) Anatomical Region Laterality Modality Spine, T-Spine, L-Spine, C-Spine, Skeletal Magnetic Resonance Specimen (Source) Anatomical Collection Method Collection Time Re ceived Time Location / / Volume Laterality 11/06/2010 12:05 PM [facility] [employer] Narrative 11/06/2010 2:45 PM [employer] MRI THORACIC SPINE WITHOUT AND WITH IV C ONTRAST 11/06/2010 INDICATION: Followup thoracic tumor rese ction. TECHNIQUE: Thoracic spine MRI without an d with intravenous contrast. CONTRAST: 20 mL IV Magnevist. Estimated GFR 67. COMPARISON: 07/27/2010 and 05/26/2010 thor acic spine MRIs. FINDINGS: Again demonstrated are postope rative changes of T2-T3 through T5-T6 laminectomies.The previously demon strated multiseptated peripherally enhancing fluid collection in the plastic worker ior paraspinal soft tissues overlying the surgical [...] mid-upper thoracic spine again noted. Procedure Note Bradford Monterroso - 11/06/2010 [facility] MRI THORACIC SPINE WITHOUT AND WITH IV C ONTRAST 11/06/2010 INDICATION: Followup thoracic tumor rese ction. TECHNIQUE: Thoracic spine MRI without an d with intravenous contrast. CONTRAST: 20 mL IV Magnevist. Estimated GFR 67. COMPARISON: 07/27/2010 and 05/26/2010 [facility] spine MRIs. FINDINGS: Again demonstrated are postope rative changes of T2-T3 through T5-T6 laminectomies.The previously demon strated multiseptated peripherally enhancing fluid collection in the plastic worker ior paraspinal soft tissues overlying the surgical [...]
--- OUTSIDE RECORDS SUMMARY | 2022-06-20 02:32 | XMS_ITS | Encounter Summary ---
:[address] [facility] Address [address] [place] [address] Care Team Providers Name Role Phone Unavailable Primary Care Provider Unavailable Encounter Details Date Type Department Care Team Description 06/16/2010 Orders Only External to Unknown, [facility] [address] [place], [place] [id number] (Wo rk) Social History Tobacco Use Types Packs/Day Years Used Date Smoking Tobacco: Never Alcohol Use Standard Drinks/Week Comments No 0 (1 standard drink = 0.6 oz pure alcoho l) Sex Assigned at Date Recorded Male 08/06/2021 5:59 PM CDT documented as of this encounter Procedure Notes [facility], Provider - 06/16/2010 12:00 AM CDTAssociated Order(s): SCANNED LAB documented in this encounter Plan of Treatment Not on filedocumented as of this encounter Procedures Procedure Name Priority Date/Time Associated Diagnosis Comme nts SCANNED LAB 06/16/2010 12:00 AM Results for this CDT procedure are i n the results section . documented in this encounter Results SCANNED LAB (06/16/2010 12:00 AM CDT) Specimen (Source) Anatomical Location Collection Method / Collectio n Time Received Time / Laterality Volume 06/16/2010 Narrative 06/16/2010 12:00 AM CDT This result has an attachment that is no t available. Ordered by an unspecified provider. Transcriptions [facility], Provider - 06/16 12:00 AM CDT Physician Unknown LAB_1 documented in this encounter Visit Diagnoses Not on filedocumented in this encounter
--- OUTSIDE RECORDS SUMMARY | 2022-06-20 02:32 | XMS_ITS | Encounter Summary ---
:1945 Author Organization [facility] Address [address] [place] [address] Care Team Providers Name Role Phone Unavailable Primary Care Provider Unavailable Reason for Visit Reason Comments Post Hospital Discharge Follow Up Encounter Details Date Type Department Care Team Description 06/02/2010 Telephone Health Diagnostics Teacher Brittny Leyva, Post Hospital [address] - carpet cutter [place] [id number] [facility] [address] [place], [place] [id number] [place] [id number] Social History Tobacco Use Types Packs/Day Years Used Date Smoking Tobacco: Never Alcohol Use Standard Drinks/Week Comments No 0 (1 standard drink = 0.6 oz pure alcoho l) Sex Assigned at Date Recorded Male 08/06/2021 5:59 PM CDT documented as of this encounter Nursing Notes Brittny Leyva RN - 06/02/2010 5:10 PM CDT Carl Cullen was hospitalized for REMOVAL OF BACLOFEN PUMP DUE TO POSSIBLE INFECTION and discharged from [facility] on 06/01/10 to home. Spoke with patient and spouse. Name of contracting executive and contact information WADE. Verbal permission obtained to talk to contracting executive? Yes Patient having difficulty with ADL???s? yes bathing, getting dressed, ambulating, getting on or off the toilet and PT. IN W/C. Reconciled discharge medications with spouse. Discrepancies noted: NONE Concerns discussed: Symptoms NONE Pain control: Pain is at 0 on a scale of 1-10 and controlled. USING TYLENOL Patient teaching: Coumadin/INR Reviewed hospital discharge instructions Reviewed when to call Careline and number to call: [phone] or Confirmed using teach back method that patient and/or caregiver can state their medications and doses to take, discharge instructions, appointments they have scheduled, who to call if their condition worsens. Follow up Plan: Appointments made by hospital staff: LAB TESTS Lab Order: INR (to be drawn by infusion nurse at hospital) SCHEDULING INSTRUCTIONS (date/time): June 02. Please fax or call results to coumadin nurse at Dr. Mcmahan's clinic. LAB TESTS Lab Order: INR and Vanco level prior to vanco infusion SCHEDULING INSTRUCTIONS (date/time): Saturday, June 05 prior to vanco infusion. (Infusion clinic to draw) CLINIC REFERRAL CLINIC: [facility]; [facility] [phone] DOCTORS NAME: Dr. Loretta Mcmahan WHEN TO BE SEEN: On (date) June 08 at 2:30 pm REASON FOR APPOINTMENT: Hospital follow-up, orders to dc picc line once vanco completed on June 09 CLINIC: [facility]: Neurosurgery; [phone]; [address] [place] [id number] DOCTORS NAME: Dr. Garry Neff WHEN TO BE SEEN: On (date) 06/19 at 2:00 REASON FOR APPOINTMENT: MDfollow up Appointments made today:none needed. INR testing: by outside MD office. Other lab visit scheduled: No Concerns to address at follow up clinic appointment: F/U HOSP. & D/C PICC LINE ONCE IV VANCO IS COMPLETED. NO F/U COORDINATION NEEDED. PT. & UNDERSTANDS MEDS, HOW & WHEN TO ADMINISTER THEM &AGREES WITH PLAN OF CARE WILL CLOSE CASE. documented in this encounter Plan of Treatment Not on filedocumented as of this encounter Visit Diagnoses Not on filedocumented in this encounter
--- OUTSIDE RECORDS SUMMARY | 2022-06-20 02:32 | XMS_ITS | Encounter Summary ---
:1945 Author Organization [facility] Address [address], [place] [address] Care Team Providers Name Role Phone Unavailable Primary Care Provider Unavailable Encounter Details Date Type Department Care Team Description 07/27/2010 Correspondence [facility] Radiology, MRI SAFETY SHEET [address] [facility] [place] [address] Social History Tobacco Use Types Packs/Day Years Used Date Smoking Tobacco: Never Alcohol Use Standard Drinks/Week Comments No 0 (1 standard drink = 0.6 oz pure alcoho l) Sex Assigned at Date Recorded Male 08/06/2021 5:59 PM CDT documented as of this encounter Progress Notes [facility], PROVIDER - 08/03/2010 7:40 AM CDT documented in this encounter Plan of Treatment Not on filedocumented as of this encounter Visit Diagnoses Not on filedocumented in this encounter
--- OUTSIDE RECORDS SUMMARY | 2022-06-20 02:32 | XMS_ITS | Encounter Summary ---
:1945 Author Organization [facility] Address [address] [address] Care Team Providers Name Role Phone Unavailable Primary Care Provider Unavailable Reason for Visit Reason Comments PICC Discontinue picc line Encounter Details Date Type Department Care Team Description 06/19/2010 Office Visit Specialty Center 401 Prob able Bacterial IV Infusion Therapy Meningitis (Primary Dx) [address] [place] [address] Social History Tobacco Use Types Packs/Day Years Used Date Smoking Tobacco: Never Alcohol Use Standard Drinks/Week Comments No 0 (1 standard drink = 0.6 oz pure alcoho l) Sex Assigned at Date Recorded Male 08/06/2021 5:59 PM CDT documented as of this encounter Progress Notes Britany Almeida RN - 06/19/2010 4:24 PM CDT PICC line discontinued order per Dr Neff, see doc flow sheet. Britany Sutherland RN documented in this encounter Plan of Treatment Not on filedocumented as of this encounter Visit Diagnoses Diagnosis Probable Bacterial Meningitis - Primary Meningitis due to unspecified bacterium documented in this encounter
--- OUTSIDE RECORDS SUMMARY | 2022-06-20 02:32 | XMS_ITS | Encounter Summary ---
:1945 Author Organization [facility] Address [address], [place] [address] Care Team Providers Name Role Phone Unavailable Primary Care Provider Unavailable Encounter Details Date Type Department Care Team Description 08/22/2010 Therapy External to Physical Therapy, Provider Social History Tobacco Use Types Packs/Day Years Used Date Smoking Tobacco: Never Alcohol Use Standard Drinks/Week Comments No 0 (1 standard drink = 0.6 oz pure alcoho l) Sex Assigned at Date Recorded Male 08/06/2021 5:59 PM CDT documented as of this encounter Progress Notes Interface, In Chrtscr And Scan - 08/23/2010 8:05 AM CDT documented in this encounter Plan of Treatment Not on filedocumented as of this encounter Visit Diagnoses Not on filedocumented in this encounter
--- OUTSIDE RECORDS SUMMARY | 2022-06-20 02:32 | XMS_ITS | Encounter Summary ---
:1945 Author Organization [facility] Address [address] [place] [address] Care Team Providers Name Role Phone Unavailable Primary Care Provider Unavailable Reason for Referral Specialty Diagnoses / Procedures Referred By Contact Refer red To Contact Lucy Colmenares PA-C [address] [place] [address] Referral ID Status Reason Start Date Expiration Date Visits Requ ested Visits Authorized Reason for Visit Reason Comments POST-OP,EXAM DOS 04/11/10 Encounter Details Date Type Department Care Team Description 06/19/2010 Office Visit Specialty Center Garry Neff low-Up Examination, Following Unspecified Surgery (Primary Dx); 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 [place] [address] [place], [place] [phone] (Wo rk) Social History Tobacco Use Types Packs/Day Years Used Date Smoking Tobacco: Never Alcohol Use Standard Drinks/Week Comments No 0 (1 standard drink = 0.6 oz pure alcoho l) Sex Assigned at Date Recorded Male 08/06/2021 5:59 PM CDT documented as of this encounter Last Filed Vital Signs Vital Sign Reading Time Taken Comments Blood Pressure 106/66 06/19/2010 2:16 PM CDT Pulse 84 06/19/2010 2:16 PM CDT Temperature 36 ??C (96.8 ??F) 06/19/2010 2:16 PM CDT Respiratory Rate 18 06/19/2010 2:16 PM CDT Oxygen Saturation - - Inhaled Oxygen Concentration - - Weight - - Height - - Body Mass Index - - documented in this encounter Patient Instructions Patient InstructionsPosterLucy - 06/19/2010 3:12 PM CDT Neurosurgery/Spine Clinic Patient Instructions We will get CRP and ESR in 6 weeks You will be scheduled for a thoracic MRI with/without in 6 weeks. Follow up with Dr. Garry Neff in 6 weeks. If tests were ordered, they will be reviewed at your next office visit. Please allow 10-14 days for forms to be completed and 2-3 business days for medication refills. Please call the Neurosurgery/Spine Clinic at [phone] with any further questions or concerns. documented in this encounter Progress Notes Strip Mill OperatorLucy - 06/19/2010 4:26 PM CDT This is a followup dictation on Carl Cullen is a 65 yr old male Date of : 1945 Cheif Complaint: f/u hospital admission Carl Cullen is a 65 yr old male who presents today for follow up visit. 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 On May 09, 2010 we replaced the catheter of the baclofen pump due to meningitis. On 2009 we removed the baclofen pump and catheter and pt was then placed on IV abx for 10 days following the procedure. Currently pt is not on any abx and denies hx of f/c/n/v, PICC line still in place. Pt did go to the ER a couple weeks ago with fever and was found to have a UTI, he was treated with Rocephin and fever resolved. After removing the baclofen pump pt states he has minimal LE spasticity and is taking oral Baclofen 30 mg daily. Pt is transferring on own and no problems with UE strength. Physical Examination: BP 106/66 Pulse 84 Temp(Src) 96.8 ??F (36 ??C) (Tympanic) Resp 18 General: in no acute distress. Alert and oriented x 3, fluent and appropriate HEENT: head normocephalic; PERRLA, sclera clear. Trachea is midline. No appreciable thyroidmegaly noted. 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 On May 09, 2010 we replaced the catheter of the baclofen pump due to meningitis. On May 29, 2010 we removed the baclofen pump and catheter. Plan Pt doing well CRP is improving. We will repeat ESR and CRP in 6 weeks. Repeat Thoracic MRI w/wo in 6 weeks. Ok to d/c PICC line Patient verbalizes understanding and states no further questions at this time. The plan of care was developed in conjunction with Dr Neff who personally saw and evaluated this patient along with myself. Pt is to f/u 6 weeks. Pt was advised to call the clinic if symptoms change or worsen or questionsarise. Lucy Parker PA-C documented in this encounter Nursing Notes 06/19/2010 2:00 PM CDT >> Marimar Choudhary CMA Mon Jun 19, 2010 2:16 PM The patient returns to the clinic for 2 months post op exam. This is not work comp related. Patient rates pain 2 in low back with occasional spasms in the legs, left side dominant. Medications: Flexeril, Tylenol and Baclofen with some relief. Patient needs no forms completed. Other concerns are none at this time. Marimar Choudhary CMA documented in this encounter Plan of Treatment Scheduled Referrals Name Type Priority Associated Diagnoses Order S chedule OTHER - ORDER Referral Routine Ordered: 06/19 documented as of this encounter Visit Diagnoses Diagnosis Follow-up examination, following unspeci fied surgery - Primary 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, unspecified site documented in this encounter
--- OUTSIDE RECORDS SUMMARY | 2022-06-20 02:33 | XMS_ITS | Encounter Summary ---
:1945 Author Organization [facility] Address [address], [place] [address] Care Team Providers Name Role Phone Unavailable Primary Care Provider Unavailable Encounter Details Date Type Department Care Team Description 05/26/2010 Consent for [facility] Department RH INFORM ED [...]
--- OUTSIDE RECORDS SUMMARY | 2022-06-20 02:33 | XMS_ITS | Encounter Summary ---
:1945 Author Organization [facility] Address [address], [place] [address] Care Team Providers Name Role Phone Unassigned, Provider Primary Care Provider Unavailable Reason for Visit Reason Onset Date Comments QUESTIONS, GENERAL 05/16/2010 post-op, DOS 05/09/10 Encounter Details Date Type Department Care Team Description 05/16/2010 Telephone Specialty Center Garry Neff, QUESTIONS, GENERAL 401 NeuroSurgery MD (post-op, DOS 05/09/10) [address] [place] [address] [place] [address] [phone] (Wo rk) Social History Tobacco Use Types Packs/Day Years Used Date Smoking Tobacco: Never Alcohol Use Standard Drinks/Week Comments No 0 (1 standard drink = 0.6 oz pure alcoho l) Sex Assigned at Date Recorded Male 08/06/2021 5:59 PM CDT documented as of this encounter Nursing Notes Selene Johnson RN - 05/17/2010 9:43 AM CDT Returned call to verify patients condition- stated that she feels that he is doing better. He had one small emesis during the night-however is now feeling much better, he is taking fluids this am, with out any nausea/emesis. He stated that his headache is improved still there but only slight compared to the last few days. Patient or will call back if there are any future concerns.Selene Johnson RN 05/17/2010, 9:42 AM\ Selene Johnson RN - 05/16/2010 5:15 PM CDT Reviewed with and he does not feel that this is related to increase in ICP. He explained that to change the antibiotics and to see how this patient is doing after he his off of the antibiotics for a day. Returned call to patient to verify his status-he stated that since we last talked this am that he had a bout of emesis around 12:30 pm and at that point his MORAN returned and that it comes from the frontof his head to the back and he is achey all over he remain afebrile. He has recently started to take sips of water and that he has not had an emesis since earlier. Again this property underwriter explained that we will give him time and to try to take sips of fluids through outthe night and to hold the iron and the antibiotic tonight and see how the MORAN and nausea is doing. And then we will talk in the am. Patient and Heather both verbalized agreement to this plan. Selene Johnson RN 05/16/2010, 5:15 PM Sweetie Sterling - 05/16/2010 3:34 PM CDT Shirin in [place] told patient to call Dr. Neff if vomiting continues to look for Intercranial pressure. Patient's Heather (cell [phone]) is requesting a call regarding this today as she wants more info and is concerned about this. Shirin Patino - 05/16/2010 3:[address] Moura ordered to start oral Doxycycline 100mg bid X 30 days. Phoned client. Spoke with his .She would like the Rx sent to [facility] in [place]. . Heather also stated that client continues to have emesis. He took one dose of Bactrim DS on Saturday night, bid on Saturday and one dose yesterday am. He vomited at 2pm on Saturday, 2:30am (this morning), 7:30am and 2x this pm. He had a H/A starting about 2pm yesterday that has improved but is not gone. Heather states she checked into IV therapy at their local hospital. The hospital told her they are able to provide IV therapy for them but will need an order. Informed Dr. Moura of above info from clients . He states client should start oral Doxy. He should improve by tomorrow. IF there is no improvement, there would be concern of intracranial pressure and client should be evaluated by the Neuro surgeon. Phoned client back. Spoke with his Heather. Informed of Dr. Moura's order to start the Doxy and if not feeling bet ter tomorrow, to call Dr. Neff's office. Heather understands. Rx sent to [facility]. This message routed back to Dr. Neff's pool as FYI. Shirin Patino RN Shirin Patino - 05/16/2010 1:43 PM CDT Reviewed clients chart. Client was seen by Dr. Llamas while in patient at [facility] on 04/30/10. He wasalso seen by Dr. Moura in patient on 05/09/10. Dr. Moura in clinic today. [facility] ordered to stop Bactrim. He will review other options and get back to this nurse.Shirin Patino RN Selene Johnson RN - 05/16/2010 12:00 PM CDT Returned call to patient, to verify the patients concerns patient stated that he has had a pounding headache and has been having emesis since he was started on the Bactrim antibiotics he did not take it today and has no emesis and his has no headache. This property underwriter explained that we would need to reviewthese concerns with ID to see what antibiotic can be substituted for the Bactrim. This property underwriter called and left a message with To in ID to verify what they would like to change this patient to, will await return call.Selene Johnson, RN 05/16/2010, 12:00 PM Giselle Vila - 05/16/2010 9:50 AM CDT Pt's Heather called to speak to Dr. Neff's care team about the post-op antibiotics the pt wassent home with. Heather stated that the pt was on IV antibiotics in the hospital and was sent home with Bactrim oral antibiotics. Heather stated the pt is now vomiting from the medication and sh was concerned about it. Please call Heather back with information. Thanks. Giselle Vila 05/16/2010, 9:52 AM documented in this encounter Plan of Treatment Not on filedocumented as of this encounter Visit Diagnoses Diagnosis Probable Bacterial Meningitis - Primary Meningitis due to unspecified bacterium documented in this encounter Care Teams Bottle Hop Relationship Specialty Start Date End Date Unassigned, Provider PCP - General 11/28/01 05/21/[address] [place] [id number] documented as of this encounter
--- OUTSIDE RECORDS SUMMARY | 2022-06-20 02:33 | XMS_ITS | Encounter Summary ---
:1945 Author Organization [facility] Address [address], [place] [address] Care Team Providers Name Role Phone Unavailable Primary Care Provider Unavailable Reason for Visit Reason Onset Date Comments Follow-up, NOS 05/22/2010 Encounter Details Date Type Department Care Team Description 05/22/2010 Telephone Specialty Center 401 Selene Johnson, RN Follow-up, NOS NeuroSurgery [address] [place] [address] [place] [address] [phone] Social History Tobacco Use Types Packs/Day Years Used Date Smoking Tobacco: Never Alcohol Use Standard Drinks/Week Comments No 0 (1 standard drink = 0.6 oz pure alcoho l) Sex Assigned at Date Recorded Male 08/06/2021 5:59 PM CDT documented as of this encounter Nursing Notes Selene Johnson RN - 05/25/2010 11:11 AM CDT Received lab results from draw this am hgb 8.3 and 2.2 for the INR-will review with . Call placed to and explained that we have received the above information- and the this patient is scheduled for surgery in the am for a lumbar puncture at 9:00 am he should arrive at [facility] at 7:00 am. At that time they will re-check the blood and evaluate the patient. She verbalized understanding. Selene Johnson RN 05/25/2010, 11:11 AM Selene Johnson RN - 05/24/2010 11:38 AM CDT Returned call to spouse and she stated she feels that he is slowly improving, less sleepy and less confused-he is able to keep some food down, spouse stated that patient is scheduled for blood draws tomorrow am, and will fax the results to Jennifer at [phone]. Per the cadastral engineer patient will be admitted through surgery center on Saturday at 9:0 am patient is to arrive at 7:00 am at the surgery center, at that time the LP will be completed and the type and cross will be completed for possible transfusion of two units of PRBC's.Selene Johnson RN 05/24/2010, 11:38 AM Selene Johnson RN - 05/23/2010 10:33 AM CDT Per plan of care patient is to bridge off of the coumadin on Enoxaparin and have a INR drawn on along with a hemogram with platelets. And if the inr is wnl than patient is to be admitted on Saturday for a possible transfusion and a LP to r/o menegitis. This medical underwriter talked with and explained the plan of care and is in agreement with this plan she will return call to verify patient did go and get his baclofen pump infusion decrease from 249 mcg/24 hours to 213 mcg/24 hours yesterday. At this point she has not noticed any change in her husbands stat us.Selene Johnson RN 05/23/2010, 10:33 AM documented in this encounter Plan of Treatment Not on filedocumented as of this encounter Visit Diagnoses Diagnosis 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, unspecified site DVT (deep venous thrombosis) ([facility]C) Acute venous embolism and thrombosis of unspecified deep vessels of lower extremity documented in this encounter
--- OUTSIDE RECORDS SUMMARY | 2022-06-20 02:33 | XMS_ITS | Encounter Summary ---
:1945 Author Organization [employer] Address [address], [place] [address] Care Team Providers Name Role Phone Unavailable Primary Care Provider Unavailable Encounter Details Date Type Department Care Team Description 05/29/2010 Surgery RH Operating Room Maurice Baron, REPLACEMENT BACLOFEN [address] Александр Duarte MD PUMP [place], [place] [id number] [phone] [place], [place] [address] (Wo rk) Social History Tobacco Use Types Packs/Day Years Used Date Smoking Tobacco: Never Alcohol Use Standard Drinks/Week Comments No 0 (1 standard drink = 0.6 oz pure alcoho l) Sex Assigned at Date Recorded Male 08/06/2021 5:59 PM CDT documented as of this encounter Last Filed Vital Signs Vital Sign Reading Time Taken Comments Blood Pressure 130/79 05/29/2010 2:20 PM CDT Pulse 92 05/29/2010 2:20 PM CDT Temperature 36.7 ??C (98 ??F) 05/29/2010 2:20 PM CDT Respiratory Rate 10 05/29/2010 2:20 PM CDT Oxygen Saturation 98% 05/29/2010 2:20 PM CDT Inhaled Oxygen Concentration - - Weight 97.5 kg (215 lb) 05/26/2010 8:00 AM CDT Height 177.8 cm (5' 10) 05/26/2010 8:00 AM CDT Body Mass Index 30.85 05/26/2010 8:00 AM CDT documented in this encounter Discharge Summaries Geetha Osuna RN - 06/01/2010 11:15 AM CDT [facility] Discharge Summary Report (MD) Admit Date/Time: 05/26/2010 7:05 AM Discharge Date: 06/01/2010 Service: Neurosurgery Staff MD: Dr. 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 He was admitted to [facility] on 04/29 for the fever. He also [...] Hospital Course: Mr. Cullen was admitted to [facility] on 05/26/2010 following lumbar puncture. He was [...] mg intravenously daily for 10 days. Qty: 59126 mg Refills: 0 CONTINUE these medications which [...] Dr. Maurice Osuna RN Neurosurgery Nurse Clinician [phone] I, Geetha Osuna RN, am serving as [...] from the original note were not included. [address] [place] [address] Discharge Instructions for: Jie Cullen Thank you for choosing [facility] as your hospital. A copy of your [...] additional information about your medications, visit this [employer] website, [email or web address]. Current Discharge Medication List START taking these medications enoxaparin (AKA LOVENOX) 10 MG/0.1ML injection Inject 100 mg subcutaneously every 12 hours. Qty: 10 mL Refills: 0 Last dose at 1130 on 06/01/2010 Take next dose tonight and then start every 12 hours on home schedule vancomycin (AKA VANCOCIN) 1000 MG injection Administer 2,500 mg intravenously daily for 10 days. Qty: 70791 mg Refills: 0 Last dose at 8 [...] care doctor. Additional Orders Clinic Referral CLINIC: [facility]: Neurosurgery; [phone]; [address] [place] [address] DOCTORS NAME: Dr. Maurice Baron WHEN TO BE SEEN: On (date) 06/19 at 2:00 REASON FOR APPOINTMENT: MDfollow up Discharge Instructions Monitor incision daily for signs of infection (redness, drainage, warmth). Call the Neurosurgery Clinic at [phone] with any incisional changes. Keep incision dry. Cover with Nexcare or Tegaderm for showers, for one week, and remove immediately after shower. Leave incision open to air. Call the doctor for these danger signs Any changes in your incision: redness, swelling, drainage, tenderness, or fever greater than 100.5. Any changes in sensation or decrease in strength to your extremeties. Neurosurgery clinic [phone]. ADMIT TO HOME CARE AGENCY NAME: [facility] [phone]. DATE OF FIRST VISIT: 1-2 days after [...] (Infusion clinic to draw) CLINIC REFERRAL CLINIC: [facility]; [facility] [phone] DOCTORS NAME: Dr. Arjun Mcmahan WHEN TO [...] shortness of breath Community [place] [address] For questions about your discharge instructions call the nursing unit : [facility] [phone] Emergency & Urgently Needed Care: For emergencies call 911 and/or get medical help right away. If you are a [facility] member and have medical needs after clinic hours you may call the CareLineat [phone] or . All medical devices (telemetry/IV/etc) unless otherwise ordered, have been removed before discharge. Smoking and second-hand smoke exposure: Smoking damages blood vessels, reduces the oxygen in your blood and makes your heart beat too fast. If you smoke you should quit. Everyone should avoid second- hand smoke. If you would like further assistance after your discharge, please contact [phone] or visit [email or web address] can offer further [...] weight will also be followed by the Design Center Consultant when you go in for your treatment. [...] out. I understand my discharge instructions: Jie Martinegfletcher (or Structural Technician) documented in this encounter Medications at Time of Discharge Medication Sig Dispensed Refills Start Date End Date vancomycin (AKA Administer 2,500 mg 40698 mg 0 06/01/2010 06/11/2010 VANCOCIN) 1000 MG [...] Hickey RN - 06/01/2010 1:37 PM CDT [facility] Discharge Note - Nursing Admission Date/Time: 05/26/2010 7:05 AM Attending MD: Maurice Baron Patient discharged: to Home. Discharge Date: 06/01/2010 Discharge Time: 131 Patient accompanied by: spouse. Transported by: Wheelchair [...] Bocanegra OTR/L - 06/01/2010 1:02 PM CDT [facility] Occupational Therapy Progress Note This patient is scheduled to be seen by Occupational Therapy. VLADIMIR Oliveros (pager) OT Dept #: [phone] - OT Weekend Pager #: [phone] - [facility] [place] [facility] #: [phone] Tania Brantley - 06/01/2010 12:21 PM CDT [facility] Care Management Discharge Note Admission Date/Time: 05/26/2010 7:05 AM Attending MD: Maurice Baron Discharge Plan: Anticipated Discharge Date: 06/01/10 Anticipated Discharge Time: 13:00 Patient to be discharged: with Home Care Service: [facility]. Patient to be accompanied by: spouse. Transportation arranged for discharge: has own wc here Pt has been cleared for dc today. Will need 10 days of IV Vanco. Infusions have been arranged through [address] in [place]. Have been in contact with Archana, warehouse selector who is aware pt discharging today and [...] 2:30pm. I did speak with Dr. Mcmahan nurse, Macy this am. She is aware of plan and I have faxed her information for continuity of care as well as the dc orders for her to cosign and send to [facility]. Pt also open to HC for [...] Ferreira in coumadin Clinic: Phone: and Fax: [facility]; ArchanaHowieArticulation Officer: Phone: and Fax: [facility]: Phone: and Fax: Followup: as ordered on dc instructions. Discharge Disposition Code: 06: Discharged or transferred to home under care of organized home health service organization Report completed by Tania Brantley RN, Pager Number [phone] --- End of Report --- Tania Brantley - 06/01/2010 11:39 AM CDT [facility] DISCHARGE ORDERS Patient Name: Jie Cullen Date of : 1945 Allergies: Zaroxolyn and Oxycodone Immunizations: Most Recent Immunizations Administered Date(s) Administered ??? Flu Vac (3+ yrs) 10/06/2009 ??? H1n1 Miv Csl 3+ Yr (Injected) 12/06/2009 ??? Pneumococcal, PPSV23 10/06/2009 Current Attending Provider: Maurice Baron MD Discharge Procedure Orders Clinic Referral Order Comments: CLINIC: [facility]: Neurosurgery; [phone]; [address] [place] [address] DOCTORS NAME: Dr. Maurice Baron WHEN TO BE SEEN: On (date) 06/19 at 2:00 REASON FOR APPOINTMENT: MDfollow up Discharge Instructions Order Comments: Monitor incision daily for signs of infection (redness, drainage, warmth). Call the Neurosurgery Clinic at [phone] with any incisional changes. Keep incision dry. Cover with Nexcare or Tegaderm for showers, for one week, and remove immediately after shower. Leave incision open to air. Call the doctor for these danger signs Order Comments: Any changes in your incision: redness, swelling, drainage, tenderness, or fever greater than 100.5. Any changes in sensation or decrease in strength to your extremeties. Neurosurgery clinic [phone]. ADMIT TO HOME CARE Order Comments: AGENCY NAME: [facility] [phone]. DATE OF FIRST VISIT: 1-2 days after [...] to draw) CLINIC REFERRAL Order Comments: CLINIC: [facility]; [facility] [phone] DOCTORS NAME: Dr. Arjun Mcmahan WHEN TO [...] mg intravenously daily for 10 days. Qty: 65749 mg Refills: 0 CONTINUE these medications which [...] have been electronically signed. (In accordance with [place] Fed. Regulation Set, Fed A0232 - Types of Authentication) Discharging MD: Dr. Baron Today's Date: 06/01/10 --- End of Report --- Tania Brantley - 06/01/2010 11:33 AM CDT [facility] Transfer Orders to Home Health Care Patient Name: Jie Cullen Date of : 1945 Allergies: Zaroxolyn and Oxycodone Immunizations: Most Recent Immunizations Administered Date(s) Administered ??? Flu Vac (3+ yrs) 10/06/2009 ??? H1n1 Miv Csl 3+ Yr (Injected) 12/06/2009 ??? Pneumococcal, PPSV23 10/06/2009 Current Attending Provider: Maurice Baron MD Discharge Procedure Orders Clinic Referral Order Comments: CLINIC: [facility]: Neurosurgery; [phone]; [address] [place] [address] DOCTORS NAME: Dr. Maurice Baron WHEN TO BE SEEN: On (date) 06/19 at 2:00 REASON FOR APPOINTMENT: MDfollow up Discharge Instructions Order Comments: Monitor incision daily for signs of infection (redness, drainage, warmth). Call the Neurosurgery Clinic at [phone] with any incisional changes. Keep incision dry. Cover with Nexcare or Tegaderm for showers, for one week, and remove immediately after shower. Leave incision open to air. Call the doctor for these danger signs Order Comments: Any changes in your incision: redness, swelling, drainage, tenderness, or fever greater than 100.5. Any changes in sensation or decrease in strength to your extremeties. Neurosurgery clinic [phone]. ADMIT TO HOME CARE Order Comments: AGENCY NAME: [facility] [phone]. DATE OF FIRST VISIT: 1-2 days after [...] to draw) CLINIC REFERRAL Order Comments: CLINIC: [facility]; [facility] [phone] DOCTORS NAME: Dr. Arjun Mcmahan WHEN TO [...] mg intravenously daily for 10 days. Qty: 21541 mg Refills: 0 CONTINUE these medications which [...] have been electronically signed. (In accordance with [employer] Fed. Regulation Set, Fed A0232 - Types of Authentication) Discharging MD: Dr. Baron Today's Date: 06/01/10 --- End of Report --- George Tang - 06/01/2010 10:43 AM CDT Infectious Disease Consult Service Plan for discharge: Patient to be discharged to: Home He will follow-up at the [facility] in [place] for intravenous infusion of vancomycin 2500 mg daily. Vancomycin stop date: 06/09/10 Patient does not need Infectious Diseases follow-up with us. Laboratory Monitoring: Vancomycin trough on SaturdayJune 05 Patient should follow-up with his primary prior to completing the vancomycin on 06/09/10 Patient's primary physician is Dr. Arjun Tang MD Geetha Osuna RN - 06/01/2010 7:49 AM CDT [facility] NeuroSurgery Progress Note 06/01/2010 Vitals Temp (24hrs), [...] INR 3.0 05/22/10 12:05 PM ??? CSFRBC 11792 05/26/10 10:30 AM ??? CSFRBC 68588 05/26/10 10:30 AM ??? CSFWBC 318* 05/26/10 [...] care service available; otherwise on Mon, 06/05 (The goal of vanco trough level is 15-20 mcg/ml) Coumadin, 7.5mg daily. Should follow up with PMD in 2-3 days SQ lovenox BID, will dc home with Lovenox as well. Both Lovenox and Coumadin until INR is therapeutic d/c home today after Vanco infused this am Geetha Osuna RN Neurosurgery Nurse Clinician [phone] I, Geetha Osuna RN, am serving as [...] Salinas RN - 05/31/2010 9:53 PM CDT [facility] Progress Note (Nursing) Identify/Problem(s): Post Op Status [...] Mckayla Hernandez - 05/31/2010 8:37 PM CDT [facility] Clinical Pharmacy Follow Up Kinetics Note Assessment: Jie Cullen, [id number], is a 65 yr year old male [...] any questions. Mckayla Hernandez, PharmD Pager Number [phone] --- End of Report --- Priti Hickey RN - 05/31/2010 8:07 PM CDT Problem: Falls Risk Goal: Moderate Risk (5-10): Fall Prevention I applied all active moderate risk falls prevention interventions. Priti Hickey RN - 05/31/2010 6:37 PM CDT [facility] Progress Note (Nursing) Identify/Problem(s): [...] reposition, monitor skin, teach discharge planning. Priti Hickey, RN --- End of Report --- Tania Brantley Ruben - 05/31/2010 3:44 PM CDT [facility] Care Management Veneer Press Operator Follow Up Note Admission Date/Time: 05/26/2010 7:05 [...] so pt can receiveiv infusions at the [address] [place] Dr. Mcmahan starts clinic at 13:00 tomorrow. I will fax her the dc orders to for her signature and she will then fax to hospital. Roderick spoke with the Articulation Officer, Archana at [facility], ph: and fax: . She confirms they can provide iv infusion for pt. I did fax her some information this afternoon for her review. Will need to fax her dc orders and summary in am as well. During weekdays, he will come into infusion clinic and on weekday evenings and weekends will go into the ED for infusions. Also spokewith Dr. Kitty, ID. Requested he be very specific when writing [...] completed by Tania Brantley RN, Pager Number [phone] --- End of Report --- Martha Thomas - 05/31/2010 3:26 PM CDT [facility] PM&R Progress Note () Date of service: [...] South MD --- End of Report --- World Renowned Chef And Restaurant Owner, Lucy Clemente - 05/31/2010 10:20 AM CDT [facility] NeuroSurgery Progress Note Pt doing well today, [...] INR 3.0 05/22/10 12:05 PM ??? CSFRBC 98487 05/26/10 10:30 AM ??? CSFRBC 73560 05/26/10 10:30 AM ??? CSFWBC 318* 05/26/10 [...] Dwyer RN - 05/31/2010 3:08 AM CDT [facility] Progress Note (Nursing) Identify/Problem(s): Comfort/pain Desired Outcome(s): Pt will have relief from pain. Evaluation: Pt c/o MORAN, medicated with tylenol with good relief. Pt turned with assistx2-3, was incontinent of large BM on NOCS. Pt denies any spasms. Surgical sites remain intact. Plan: Monitor comfort/pain level and treat prn. Discussed plan of care with patient. Nakita Dwyer RN --- End of Report --- AT Milo Salinas RN - 05/30/2010 10:18 PM CDT [facility] Progress Note (Nursing) Identify/Problem(s): Post Op Status [...] Huerta PharmD - 05/30/2010 3:54 PM CDT [facility] Clinical Pharmacy Initial Kinetics Note Assessment: Jie Cullen, [id number], is a 65 yr year old male started on vancomycin 2g iv q24h for LAND RESOURCE SPECIALIST coverage s/p baclofen pump removal due to infection Data: Last Height: 5' 10 (177.8 cm) Last Wt - Scale: 215 lb (97.523 kg) [place] Body Weight: 73 kg Dosing Weight: 83 [...] to follow. Britni Huerta PharmD Pager Number: [phone] --- End of Report --- Tania Brantley - 05/30/2010 2:59 PM CDT [facility] Care Management Veneer Press Operator Initial Assessment Admission Date/Time: 05/26/2010 7:05 AM Attending MD: Maurice Baron Data Jie Cullen was referred to this Veneer Press Operator for discharge planning. Chart reviewed, discussed with interdisciplinary team, as well as with patient and family. 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 Insurance: Payor: MEDICARE PART B ONLY [id number] Plan: MEDICARE PART B ONLY Product Type: Medicare Current Living Situation: Patient lives with their spouse. Support System: family and friends Services Involved: Home PT through [facility] in [place]. Ph: and Fax: Additional Data: Pt's primary MD is Dr. Arjun Mcmahan at the [facility] Coordination of Care and Referrals: Provided patient/family [...] could go into the ER at the [address] for iv infusions. I had spoken with warehouse selector in the ED at hospital who told me it is possible for them to provide this service for pt, but they wound need the orders to come from pt's primary MD. I attempted to phone pt's primary and she as well as her nurse are offon Tuesdays. I had to leave with request for call back in am. If I don't receive call back in am,I will try again. Will update pt in am as well. Dr. Tang has since made recommendations for IV vanco, but unsure if it will be daily or q12 hrs. Will need to see what [place] facility can provide for pt. Pt very reluctant [...] completed by Tania Brantley RN, Pager Number [phone] --- End of Report --- Martha Thomas - 05/30/2010 1:24 PM CDT [facility] PM&R Progress Note () Date of service: 05/30/2010 Diagnosis: Encounter Diagnoses Code Name Primary? 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 Martha South MD [phone] --- End of Report --- World Renowned Chef And Restaurant Owner, Lucy Clemente - 05/30/2010 1:21 PM CDT [facility] NeuroSurgery Progress Note Pt is doing well. [...] INR 3.0 05/22/10 12:05 PM ??? CSFRBC 33502 05/26/10 10:30 AM ??? CSFRBC 83085 05/26/10 10:30 AM ??? CSFWBC 318* 05/26/10 [...] Archana Pace - 05/30/2010 12:28 PM CDT [facility] Medical Laboratory Technical Officer Department Progress Note Supervisor Sign Shop Notes: Initial assessment for spiritual and emotional [...] skills and resources. They are appreciative of quality assurance qa lab technician and labor trainer visits and prayers. I offered prayers for healing and strength. Plan: Medical Laboratory Technical Officer will continue following for ongoing spiritual and emotional support to pt/family. Report Completed by: Archana Pace, [facility] Staff Supervisor Sign Shop --- End of Report --- Malathi Domingo, RN - 05/30/2010 10:58 AM CDT [facility] Progress Note (Nursing) Identify/Problem(s): comfort Desired Outcome(s): [...] Malathi Domingo --- End of Report --- Malathi Domingo RN - 05/30/2010 9:35 AM CDT Problem: Falls Risk Goal: Moderate Risk (5-10): Fall Prevention I applied all active moderate risk falls prevention interventions. Radha Long RN - 05/30/2010 3:45 AM CDT [facility] Progress Note (Nursing) Identify/Problem(s): Post op, comfort [...] Salinas RN - 05/29/2010 9:48 PM CDT [facility] Progress Note (Nursing) Identify/Problem(s): Post OP Status [...] Cerda RN - 05/29/2010 6:58 PM CDT [facility] Progress Note (Nursing) Identify/Problem(s): Post op status Desired Outcome(s): Will be stable Evaluation: VSS, patient denies pain, patient tolerating clear liquid diet. Dressing to abdomen and back are dryand intact, green patent. at bedside, no other complaints at this time. Plan: Continue to monitor. Tania Cerda, RN --- End of Report --- Tania Brantley - 05/29/2010 2:26 PM CDT [facility] Veneer Press Operator Progress Note Pt has gone to OR. Briefly met with . Pt well known to me from previous admissions. Informed Lazara would attempt to meet with them tomorrow. She feels pt doing better and in pretty good sprits. Report completed by Tania Brantley RN, Pager Number [phone] --- End of Report --- Garth Rodriguez RN - 05/29/2010 11:40 AM CDT [facility] Nursing Pre-Op Note Admission Date/Time: 05/26/2010 7:05 AM Time of transport to the Operating Room: 1140 Transported by: Litter/cart Pre-Op checklist complete?: Yes Report Completed by: Rmoelia Rodriguez RN --- End of Report --- Lisy Durand RN - 05/29/2010 3:15 AM CDT [facility] Progress Note (Nursing) Identify/Problem(s): Comfort Desired [...] Bardales RN - 05/28/2010 10:45 PM CDT [facility] Progress Note (Nursing) Identify/Problem(s): Comfort Desired Outcome(s): Pt will be comfortable Evaluation: Pt comfortable with position changes. No prn pain medication requested. Sat on the edge of the bed and ate well for supper. Plan: Baclofen pump to be removed tomorrow. Discussed plan of care with patient and family. Sarita Bardales RN --- End of Report --- Sarita Escamilla RN - 05/28/2010 6:37 PM CDT Problem: [...] Dietz RN - 05/28/2010 10:30 AM CDT [facility] Progress Note (Nursing) Identify/Problem(s): [...] mcg/mL. Dose following reprogrammin mcg/day simple continuous. Corinne volume 35.7mL, Alarm date 07/09/2011. A/P: 65 [...] Contact Dr. Cristine Henson from PMR at [phone] if questions or if displaying symptoms of withdrawal (markedly increased muscle tone, itching, decrease in seizure threshold). 6. Recommend continuing home bowel program of enemeez every other day, next due 05/29, if able to schedule prior to surgery. Total time: 25. Counseling and Coordination time: 20. Mónica Saldana - 05/28/2010 6:28 AM CDT [facility] Progress Note (Nursing) Identify/Problem(s): [...] prevention interventions. Sarita Bardales RN - 05/27/2010 8:57 PM CDT [facility] Progress Note (Nursing) Identify/Problem(s): [...] Cristine Henson - 05/27/2010 1:17 PM CDT [facility] PM&R Progress Note () Date of service: [...] Simple continuous mode 2. Dose 127 mcg/day Corinne volume: 35.8 mL Low reservoir alarm date: [...] Contact Dr. Cristine Henson from PMR at [phone] if questions or if displaying symptoms of withdrawal (markedly increased muscle tone, itching, decrease in seizure threshold). Total time: 25. Counseling and Coordination time: 20. Cristine Henson MD --- End of Report --- Ozzy Dietz RN - 05/27/2010 12:40 PM CDT [facility] Progress Note (Nursing) Identify/Problem(s): [...] Walters RN - 05/26/2010 10:57 PM CDT [facility] Progress Note (Nursing) Identify/Problem(s): comfort Desired Outcome(s): [...] Walters RN --- End of Report --- AT Arjun Walters RN - 05/26/2010 6:39 PM CDT [facility]. MD Notified Note Name of MD notified: Yomi Miller Time of MD notification: 1800 hours and 30 minutes Reason: Should patient received enoxaparin injection tonight since he had LP today Response: Patient should receive enoxaparin tonight. Arjun Walters RN --- End of Report --- AT Arjun Walters RN - 05/26/2010 5:56 PM CDT Problem: Falls Risk Goal: Moderate Risk (5-10): Fall Prevention I applied all active moderate risk falls prevention interventions. Roula Zuniga - 05/26/2010 2:30 PM CDT [facility] Clinical Pharmacy Medication Reconciliation Note Medication History: per [facility] Medications marked Taking as of 05/26/10 encounter (Hospital Encounter) with MAURICE BARON: acetaminophen (AKA TYLENOL) 325 MG tablet Take 1-2 Tabs by mouth every 4 hours as needed for Pain. atorvastatin (LIPITOR) 40 MG tablet Take 1 Tab by mouth daily. baclofen (AKA LIORESAL) 10 MG tablet Take 1 Tab by mouth. Wean schedule:Take 10mg three times a day for 6 doses, [id number] twice a day for 4 doses, [id number] daily for 2 days, [id number] twice daily NEEDED BACLOFEN IT 220 mcg [...] hospitalization and medical condition. PHARMACIST NAME: Roula Garcia [facility] Phone/Pager #: [phone] --- End of Report --- documented in this encounter Procedure Notes Maurice Baron - 07/12/2010 10:00 AM CDT DATE OF SURGERY: 05/26/2010 SURGEON: Maurice Baron MD FIRER HELPER: None. ANESTHESIA: Local plus sedation. PREOPERATIVE DIAGNOSES: [...] 07/12/2010 10:00:55 Transcribed: 07/12/2010 22:40:18 Doc #: [id number] cc:Maurice Baron MD, Referring Provider 1 Page 1 Patient Name: JIE CULLEN INPATIENT OPERATIVE REPORT CONFIDENTIAL MEDICAL RECORD [address] [id number] Page 1 Patient: JIE CULLEN Location: [facility] HPN: [id number] Admit Date: 05/26/2010 Date of : 1945 Discharge Date: 06/01/2010 Age: 65Y INPATIENT OPERATIVE REPORT Maurice Baron - 06/26/2010 5:19 PM CDT DATE OF SURGERY: 05/29/2010 STAFF SURGEON: Maurice Baron MD FIRER HELPER: Lucy Parker, [facility] PREOPERATIVE DIAGNOSES: 1. Status post excision of [...] were dressed. The patient returns to his rney woken up, extubated and taken stable to [facility]. Procedure well tolerated with no apparent complication s. Needle and sponge counts correct and verified at the end of the case. EBL was approximately 25 mLor less. Maurice Baron MD kda Dictated: 06/26/2010 17:19:06 Transcribed: 06/27/2010 08:10:23 Doc #: [id number] cc:Maurice Baron MD, Referring Provider 1 Page 1 Patient Name: JIE CULLEN INPATIENT OPERATIVE REPORT CONFIDENTIAL MEDICAL RECORD [address] [address] Page 1 Patient: JIE CULLEN Location: [facility] HPN: [id number] Admit Date: 05/26/2010 Date of : 1945 Discharge Date: 06/01/2010 Age: 65Y INPATIENT OPERATIVE REPORT Priti Agudelo RN - 05/31/2010 10:38 AM CDT [facility] PICC Line Insertion Procedure Note Singe Lumen PICC Site One Date of Service: 05/31/10 UNIVERSAL PROTOCOL: Procedure Location: S10 Condition: Elective Consent: Imformed Written Patient Identification: Verified Time Out: Performed Site Prep: Chloraprep Protective Barriers: Maximum Barriers Used including Handwashing, Sterile Gown, Gloves, Mask, Eye Protection & Cap PROCEDURE: Insert/Remove: Inserted Inserted By?: PICC Services Indication: Antibiotics Sheet Metal Assembler: Power PICC Size (Mauritanian): 5 Length (cm): 46 CM Lot #: [id number] Location: Right or Left: Right Site: Basilic Dressing: Tegaderm w/antimicrobial patch ULTRASOUND GUIDED ACCESS. Priti Agudelo RN, CRNI --- End of Report --- Lucy Parker - 05/29/2010 3:28 PM CDT [facility] Brief Operative Progress Note Surgery Date: 05/29/2010 Primary Surgeon: Surgeon(s): Maurice Baron Assistants: Lucy Parker PA-C Post-op Diagnosis: BACLOFEN PUMP INFECTION Procedure: REMOVAL OF BACLOFEN PUMP EBL: 10 mL Complications / Findings: None/ see dictated operative note Plan: Transfer back to [address] [place] [address] Resume pre operative orders IV valium prn [...] The procedure was medically necessary for an circulation assistant because Dr. Baron needed the operative exposure and assistance that I provided. This allowed him to safely and efficiently operate. It was also important that I help ligate blood vessels to maintain hemostasis and reduce the bleeding risk. The assistance that I provided reduced operative time which meant less general anesthetic for the patient. Lucy Parker PA-C --- End of Report --- [facility] ANESTHESIA, PROVIDER - 05/29/2010 12:00 AM CDT [facility] ANESTHESIA, PROVIDER - 05/29/2010 12:00 AM CDT [facility], PROVIDER - 05/29/2010 12:00 AM CDTAssociated Order(s): EKG IP; EKG IP [facility] ANESTHESIA, PROVIDER - 05/29/2010 12:00 AM CDT [facility] ANESTHESIA, PROVIDER - 05/29/2010 12:00 AM CDT [facility] ANESTHESIA, PROVIDER - 05/26/2010 12:00 AM CDT [facility] ANESTHESIA, PROVIDER - 05/26/2010 12:00 AM CDT [facility] ANESTHESIA, PROVIDER - 05/26/2010 12:00 AM CDT [facility] ANESTHESIA, PROVIDER - 05/26/2010 12:00 AM CDT documented in this encounter Consult Notes Stephan Anderson MD - 05/30/2010 11:24 AM CDTAssociated Order(s): INFECTIOUS DISEASE INPT CONSULT [facility]. Consultation Note () Date of service: 05/30/2010 Diagnosis: bacterial meningitis Admit Date/Time: 05/26/2010 7:05 AM Attending: Maurice Baron I was asked by Dr. Baron of Neurosurgery to see this patient to give recommendations regarding meningitis. Chief Complaint: Fever, headache and confusion History of Present Illness: Mr. 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 He had radical ependymoma resection on 04/11/2010 which went uneventfully. However was admitted to [facility] on 04/28 for spiking fever, chills. He [...] with decreased appetite. He was admitted to [facility] on 05/26/2010nd had CSF drain that day. [...] 2000 S/p resection by Dr. Glasgow at [place] in 05/2000. However resection was incomplete due [...] postop bleed cmpl ??? Total knee replacement (41682) right ??? Ivc filter placement 1999 Current [...] 1 at baseline. Lives with his in [place]. Review of Systems: A complete ROS was [...] - 91 18 97 % - - 05/29/102019 110/71 mmHg - - 93 18 97 [...] CSF 05/26: protein 248, glucose 25, RBC 54112, nucleated cells 318 with 80%PMN. CSF 04/30 [...] spent in counseling and coordinating care. A specialized language instructor was not used during this exam. Report Completed by: Stephan ANDERSON MD, PGY-2, [phone] --- End of Report --- Relevant Reference [...] 2:12 PM CDTAssociated Order(s): PM&R INPT CONSULT [facility] PM&R Progress Note () Date of service: [...] He also c/o severe headache since 04/28. Mr. Loving was seen by ID, Medicine, and Nephrology [...] 2000 S/p resection by Dr. Glasgow at [place] in 05/2000. However resection was incomplete due [...] orders placed during the hospital encounter of 07/16/10 (from the past 24 hour(s)) INR/PROTIME Component Value Range ??? PROTIME 20.1 (*) 12.0-14.5 (sec) ??? INR 1.7 - APTT (ACTIVATED PARTIAL THROMBOPLASTIN TIME Component Value Range ??? PTT 42.4 (*) 24.0-37.0 (sec) LAB TO PREPARE THAWED PLASMA Component Value Range ??? UNITS ORDERED 2 - ??? UNIT NUMBER [id number] - ??? BLOOD COMPONENT TYPE THAWED PLASMA - ??? STATUS OF UNIT ISSUED - ??? TRANSFUSION STATUS OK TO TRANSFUSE - ??? UNIT NUMBER [id number] - ??? BLOOD COMPONENT TYPE THAWED PLASMA - ??? STATUS OF UNIT ISSUED - ??? TRANSFUSION STATUS OK TO TRANSFUSE - TYPE & CROSSMATCH (TRANSFUSE NOW) Component Value Range ??? ABO/RH(D) A NEGATIVE - ??? ANTIBODY SCREEN NEGATIVE - ??? CROSSMATCH EXPIRES 05/29/2010 - ??? UNIT NUMBER [id number] - ??? BLOOD COMPONENT TYPE [place] RED TRADING ANALYST - ??? STATUS OF UNIT ISSUED - ??? TRANSFUSION STATUS OK TO TRANSFUSE - ??? CROSSMATCH RESULT COMPATIBLE - ??? UNIT NUMBER [id number] - ??? BLOOD COMPONENT TYPE [place] RED TRADING ANALYST - ??? STATUS OF UNIT ISSUED - [...] ??? XANTHOCHROMIA Present - ??? RBC, CSF 50030 - (/ul) ??? NUCLEATED CELLS, CSF 318 (*) 0-5 (/ul) ??? PMN'S 80 - (%) ??? LYMPHOCYTES 9 - (%) ??? MONOCYTE/MACROPHAGE 11 - (%) FIRST CSF CELL COUNT & DIFF Component Value Range ??? SOURCE Cerebrospinal Fluid - ??? DESCRIPTION, CSF - Value: Bloody Slight ??? TUBE # 1 - ??? XANTHOCHROMIA Present - ??? RBC, CSF 79370 - (/ul) ??? NUCLEATED CELLS, CSF 352 (*) 0-5 (/ul) ??? LYMPHOCYTES - (%) SPINAL FLUID CULTURE & SMEAR Component Value Range ??? SPECIMEN DESCRIPTION Cerebrospinal Fluid - ??? SPECIAL REQUESTS Unspecified - ??? GRAM SMEAR No Organisms Seen - ??? GRAM SMEAR - Value: Critical value results given to and read back by Mendoza [id number] at 11:58 ??? GRAM SMEAR 05/26 to NT - ??? CULTURE - ??? REPORT STATUS - AEROBIC CULTURE Component Value Range ??? SPECIMEN DESCRIPTION Fluid BACLOFEN PUMP - ??? SPECIAL REQUESTS Unspecified - ??? GRAM SMEAR No PMN'S Seen - ??? GRAM SMEAR No Organisms Seen - ??? GRAM SMEAR - Value: Results Called to Mendoza [id number] at 11:59 on 05/26 by NT ??? CULTURE - ??? REPORT STATUS - PROCEDURE NOTE: 05/26/2010 Current settings: Baclofen Concentration 1,000mcg/ml on simple continuous mode Dose: last dose on 05/22 was 213 Mcg/day. Baclofen dose was decreased by 20% and new pump settings are: 1. Simple continuous mode 2. Dose 170.2 mcg/day Corinne vol: 35.9 mL Low reservoir 12/14/2010 Assessment/Plan: [...] BACLOFEN PUMP EKG IP 05/29/2010 12:00 AM CDT Resu lts for this procedure are i n the results section . LIGHT GREEN HOLD TUBE Routine 05/28/2010 6:44 AM CDT Results for this procedure are i n the results section . COMPLETE BLOOD COUNT-NO DIFF Routine 05/28/2010 6:43 AM CDT Results for this procedure are i n the results section . COMPLETE BLOOD COUNT-NO DIFF Routine 05/27/2010 6:52 AM CDT Results for this procedure are i n the results section . MR THORACIC SPINE W/WO IV Routine 05/26/2010 4:52 PM CDT Results for this CONT procedure are i n the results section . CREATININE / GFR STAT 05/26/2010 2:51 PM CDT R esults for this procedure are i n the results section . XR C-ARM 30-59 MINUTES Routine 05/26/2010 10:35 AM CDT Results for this procedure are i n the results section . FIRST CSF CELL COUNT & DIFF Routine 05/26/2010 10:30 AM CDT Results for this procedure are i n the results section . SECOND CSF CELL COUNT & DIFF Routine 05/26/2010 10:30 AM CDT Results for this procedure are i n the results section . SPINAL FLUID CULTURE & SMEAR Routine 05/26/2010 10:30 AM CDT Results for this procedure are i n the results section . AEROBIC CULTURE Routine 05/26/2010 10:30 AM CDT R esults for this procedure are i n the results section . ANAEROBIC CULTURE Routine 05/26/2010 10:30 AM CDT Results for this procedure are i n the results section . ANAEROBIC CULTURE Routine 05/26/2010 10:30 AM CDT Results for this procedure are i n the results section . CSF, GLUCOSE Routine 05/26/2010 10:30 AM CDT Resu lts for this procedure are i n the results section . CSF TOTAL PROTEIN Routine 05/26/2010 10:30 AM CDT Results for this procedure are i n the results section . TYPE & CROSSMATCH (TRANSFUSE STAT 05/26/2010 9:30 [...] Maurice Baron MD LAB_1 Performing Organization Address [facility] Phon e Number [address] [address] [place], [place] [phone] XR PORTABLE CHEST 1 VIEW to verify [...] Lucy Colmenares PA-C LAB_1 Performing Organization Address [facility] Phon e Number [address] [address] [place], [place] [phone] (ABNORMAL) HEMOGRAM/PLTS (05/30/2010 12:28 PM CDT) athologist [facility] WBC 7.0 4.0 - 11.0 REGIONS k/ul [...] Organization Address City/State/ZIP Code Phon e Number [facility] [address] [place] [address] [place], [place] [phone] (ABNORMAL) BASIC METABOLIC PANEL (05/30/2010 12:28 PM CDT) athologist [facility] BUN 19 7 - 20 REGIONS mg/dl [...] Maurice Baron MD LAB_1 Performing Organization Address [facility]/ZIP [facility] Phon e Number [address] [address] [place], [place] [phone] EKG IP (05/29/2010 12:00 AM CDT) Specimen (Source) Anatomical Location Collection Method / Collectio n Time Received Time / Laterality Volume 05/29/2010 Narrative This result has an attachment that is no t available. Transcriptions [facility], PROVIDER - 05/29/2010 12:00 AM CDT Provider [facility] EKG LIGHT GREEN HOLD TUBE (05/28/2010 6:44 AM CDT) [facility] Method Time Signature Light Green Held in REGIONS Hold Tub Chemistry sample rack for 7 days Specimen Anatomical Collection Method Collection Time Receive d Time (Source) Location / / Volume Laterality 05/28/2010 6:44 AM 0 7:01 CDT AM CDT Maurice Baron MD LAB_1 Performing Organization Address [facility] Phon e Number [address] [address] [place], [place] [phone] (ABNORMAL) HEMOGRAM/PLTS (05/28/2010 6:43 AM CDT) P [...] Yomi Miller MD LAB_1 Performing Organization Address [facility]/ZIP [facility] Phon e Number [address] [address] [place], [place] [phone] (ABNORMAL) Hemogram with Platelets (05/27/2010 6:52 AM CDT) P athologist Signature WBC 7.2 4.0 - 11.0 [...] 6:52 AM 0 6:53 CDT AM CDT Maruice Baron MD LAB_1 Performing Organization Address [facility] Phon e Number [address] [address] [place], [place] [phone] MR THORACIC SPINE WITH/WITHOUT CONTRAST (05/26/2010 4:52 PM CDT) Anatomical Region Laterality Modality Spine, T-Spine, L-Spine, C-Spine, Skeletal Magnetic Resonance Specimen (Source) Anatomical Collection Method Collection Time Re ceived Time Location / / Volume Laterality 05/26/2010 4:52 PM CDT Narrative 05/26/2010 5:18 PM CDT [facility] [place] THORACIC SPINE MRI ? 05/26/2010 INDICATION: Evaluate [...] nal. Procedure Note Julien Anna - 05/27/2010 [facility] THORACIC SPINE MRI 05/26/2010 INDICATION: Evaluate [...] CREATININE / GFR (05/26/2010 2:51 PM CDT) athologist Signature Creatinine 1.10 0.66 - REGIONS 1.25 mg/dl GFR, Estimated >60.00 >60 REGIONS ml/min/1.7 3m2 GFR, Est., If >60.00 >60 REGIONS Black ml/min/1.7 3m2 Specimen Anatomical Collection Method Collection Time Receive d Time (Source) Location / / Volume Laterality 05/26/2010 2:51 PM 0 2:52 CDT PM CDT Maurice Baron MD LAB_1 Performing Organization Address City/State/ZIP Code Phon e Number [address] [address] [place], [place] [phone] XR C-ARM 30-59 MIN (05/26/2010 10:35 AM CDT) Anatomical Region Laterality Modality X-Ray Angiography Specimen (Source) Anatomical Location Collection Method / Collectio n Time Received Time / Laterality Volume Narrative 05/26/2010 10:37 AM CDT This is an imaging order which does not require reading by a radiologist. The order is completed and status is fin al. Procedure Note Cooper Kim - 05/26/2010 This is an imaging order which does not require reading by a radiologist. The order is completed and status is final. Maurice Baron MD RAD GD ANAEROBIC CULTURE (05/26/2010 10:30 AM CDT) Patholo gist Method Time Signature Specimen Fluid BACLOFEN REG[facility] Description PUMP Special Unspecified REG[facility] Requests Aerobic Cult [id number] REGIONS Number Culture No Anaerobes REGIONS Isolated Report Status Final REGIONS 06/02/2010 Specimen Anatomical Collection Method Collection Time Receive d Time (Source) Location / / Volume Laterality 05/26/2010 10:30 05/26/2010 AM CDT 11:23 AM CDT Noble Singh MD LAB_1 Performing Organization Address City/[facility]/ZIP Code Phon e Number [address] [address] [place], [place] [phone] AEROBIC CULTURE (05/26/2010 10:30 AM CDT) [employer] Method Time Signature Specimen Fluid BACLOFEN REG[facility] Description PUMP Special Unspecified REGIONS Requests Gram Smear No PMN'S Seen REGIONS Gram Smear No Organisms REGIONS Seen Gram Smear Results Called REGIONS to Mendoza [id number] at 11:59 on 05/26 by NT Culture No Growth After REGIONS 3 Days Report Status Final REGIONS 05/29/2010 Specimen Anatomical Collection Method Collection Time Receive d Time (Source) Location / / Volume Laterality 05/26/2010 10:30 05/26/2010 AM CDT 11:23 AM CDT Noble Singh MD LAB_1 Performing Organization Address City/[facility]/ZIP [facility] Phon e Number [address] [address] [place], [place] [phone] ANAEROBIC CULTURE (05/26/2010 10:30 AM CDT) Component Value Ref Test Analysis Performed At [employer] [facility] Method Time Signature Specimen Cerebrospinal REGIONS Description Fluid Special Unspecified REGIONS Requests Aerobic Cult [id number] REGIONS Number Culture No Anaerobes REGIONS Isolated Report Status Final 06/02/2010 [facility] Specimen Anatomical Collection Method Collection Time Receive d Time (Source) Location / / Volume Laterality 05/26/2010 10:30 05/26/2010 AM CDT 11:18 AM CDT Noble Singh MD LAB_1 Performing Organization Address City/[facility]/ZIP Code Phon e Number [address] [address] [place], [place] [phone] SPINAL FLUID CULTURE & SMEAR (05/26/2010 10:30 AM CDT) Component Value Ref Test Analysis Performed At [facility] Method Time Signature Specimen Cerebrospinal REGIONS Description Fluid Special Unspecified REGIONS Requests Gram Smear No Organisms REGIONS Seen Gram Smear Critical value REGIONS results given to and read back by Kelly Clifford2 at 11:58 Gram Smear 05/26 to NT REGIONS Culture No Growth After REGIONS 3 Days Report Status Final 05/29/2010 REGIONS Specimen Anatomical Collection Method Collection Time Receive d Time (Source) Location / / Volume Laterality 05/26/2010 10:30 05/26/2010 AM CDT 11:18 AM CDT Noble Singh MD LAB_1 Performing Organization Address [facility] Phon e Number [address] [address] [place], [place] [phone] (ABNORMAL) FIRST CSF CELL COUNT & DIFF (05/26/2010 10:30 AM CDT) Component Value Ref Test Analysis Performed At [facility] Method Time Signature Source Cerebrospinal REGIONS Fluid Description, CSF Bloody REGIONS Slight Tube # 1 REGIONS Xanthochromia Present REGIONS RBC, CSF 45248 /ul REGIONS Nucleated Cells, 352 (H) 0 - 5 REGIONS CSF /ul PMN's 65 % REGIONS Lymphocytes 15 % REGIONS Monocyte/Macroph 20 % REGIONS age Specimen Anatomical Collection Method Collection Time Receive d Time (Source) Location / / Volume Laterality 05/26/2010 10:30 05/26/2010 AM CDT 11:11 AM CDT Noble Singh MD LAB_1 Performing Organization Address [facility] Phon e Number [address] [address] [place], [place] [phone] (ABNORMAL) SECOND CSF CELL COUNT & DIFF (05/26/2010 10:30 AM CDT) Component Value Ref Test Analysis Performed At [facility] Method Time Signature Source Cerebrospinal REGIONS Fluid Description, CSF Bloody REGIONS Slight Tube # 4 REGIONS Xanthochromia Present REGIONS RBC, CSF 47135 /ul REGIONS Nucleated Cells, 318 (H) 0 - 5 REGIONS CSF /ul PMN's 80 % REGIONS Lymphocytes 9 % REGIONS Monocyte/Macroph 11 % REGIONS age Specimen Anatomical Collection Method Collection Time Receive d Time (Source) Location / / Volume Laterality 05/26/2010 10:30 05/26/2010 AM CDT 11:03 AM CDT Noble Singh MD LAB_1 Performing Organization Address [facility] Phon e Number [address] [address] [place], [place] [phone] (ABNORMAL) CSF TOTAL PROTEIN (05/26/2010 10:30 AM CDT) [facility] Method Time Signature Source Cerebrospinal REGIONS Fluid Total 248 (H) 12 - 60 REGIONS Protein, CSF mg/dl Comment: The use if this assay to monitor or diag nose patients has not been approved for this specimen type by the FDA or city plant supervisor of this assay. Specimen Anatomical Collection Method Collection Time Receive d Time (Source) Location / / Volume Laterality 05/26/2010 10:30 05/26/2010 AM CDT 10:51 AM CDT Noble Singh MD LAB_1 Performing Organization Address [facility] Phon e Number [address] [address] [place], [place] [phone] (ABNORMAL) CSF, GLUCOSE (05/26/2010 10:30 AM CDT) [facility] Method Time Signature Source Cerebrospinal REGIONS Fluid Glucose, CSF 25 (L) 40 - 70 REGIONS mg/dl Specimen Anatomical Collection Method Collection Time Receive d Time (Source) Location / / Volume Laterality 05/26/2010 10:30 05/26/2010 AM CDT 10:51 AM CDT Noble Singh MD LAB_1 Performing Organization Address [facility] Phon e Number [address] [address] [place], [place] [phone] TYPE & CROSSMATCH (TRANSFUSE NOW) (05/26/2010 9:30 AM CDT) [facility] Method Time Signature ABO/RH(D) A NEGATIVE [facility] Antibody Screen NEGATIVE REGIONS Crossmatch 05/29/2010 REGIONS Expires Unit Number [id number] REGIONS Blood Component LEUK RED TRADING ANALYST REGIONS Type Status of Unit Issued, final REGIONS Transfusion OK TO REGIONS Status TRANSFUSE Crossmatch COMPATIBLE REGIONS Result Unit Number [id number] REGIONS Blood Component [place] RED TRADING ANALYST REGIONS Type Status of Unit Issued, final REGIONS Transfusion OK TO REGIONS Status TRANSFUSE Crossmatch COMPATIBLE REGIONS Result Unit Number [id number] REGIONS Blood Component [place] RED TRADING ANALYST REGIONS Type Status of Unit Issued, final REGIONS Transfusion OK TO REGIONS Status TRANSFUSE Crossmatch COMPATIBLE REGIONS Result Unit Number [id number] REGIONS Blood Component [place] RED TRADING ANALYST REGIONS Type Status of Unit Issued, final REGIONS Transfusion OK TO REGIONS Status TRANSFUSE Crossmatch COMPATIBLE REGIONS Result Specimen Anatomical Collection Method Collection Time Receive d Time (Source) Location / / Volume Laterality 05/26/2010 9:30 AM 0 9:34 CDT AM CDT Maurice Baron MD LAB_1 Performing Organization Address [facility] Phon e Number [address] [address] [place], [place] [phone] LAB TO PREPARE THAWED PLASMA (05/26/2010 9:29 AM CDT) [facility] gist Method Time Signature Units Ordered 2 REGIONS Unit Number [id number] REGIONS Blood Component THAWED PLASMA REGIONS Type Status of Unit Issued, final REGIONS Transfusion OK TO REGIONS Status TRANSFUSE Unit Number [id number] REGIONS Blood Component THAWED PLASMA REGIONS Type Status of Unit Issued, final REGIONS Transfusion OK TO REGIONS Status TRANSFUSE Specimen Anatomical Collection Method Collection Time Receive d Time (Source) Location / / Volume Laterality 05/26/2010 9:29 AM 0 9:41 CDT AM CDT Maurice Baron MD LAB_1 Performing Organization Address [facility] Phon e Number [address] [address] [place], [place] [phone] (ABNORMAL) aPTT (Activated Partial Thromboplastin Time) (05/26/2010 8:12 AM CDT) P athologist Signature PTT 42.4 (H) 24.0 - 37.0 REGIONS sec Specimen Anatomical Collection Method Collection Time Receive d Time (Source) Location / / Volume Laterality 05/26/2010 8:12 AM 0 8:32 CDT AM CDT Maurice Baron MD LAB_1 Performing Organization Address City/[facility] Phon e Number [address] [address] [place], [place] [phone] (ABNORMAL) INR/Protime (PT/INR) (05/26/2010 8:12 AM CDT) P athologist Signature Protime 20.1 (H) 12.0 - 14.5 REGIONS sec INR 1.7 REGIONS Specimen Anatomical Collection Method Collection Time Receive d Time (Source) Location / / Volume Laterality 05/26/2010 8:12 AM 0 8:32 CDT AM CDT Maurice Baron MD LAB_1 Performing Organization Address City/State/ZIP Code Phon e Number [address] [address] [place], [place] [phone] documented in this encounter Visit Diagnoses Diagnosis 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, unspecified site Spasticity Abnormal involuntary movements Neurogenic bladder Neurogenic bladder, NOS Initial Assessments - Jennyfer Bailey RDN, ALEJA - 05/31/2010 3:56 PM CDT [facility] Nutrition Initial Limited Assessment and Care Plan Reason for Assessing Patient: LOS Assessment: 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 Current Intake/Digestive Problems: no problems noted Dietary Intake Since Admission: consuming 75-100% of documented meals. 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 19869 CAREPLAN: BACLOFEN ??? 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 Corrie Buckner PT Phone number is [phone] Pager: Pager number is: [phone] --- End of Report --- Initial Assessments - Cheli Ruiz RN - 05/26/2010 1:50 PM CDT [facility] Med-Surg / ICU / Rehab / [...] Assist: (not recorded) Functional Screening: (not recorded) PSYCHOSOCIAL/SPIRITUAL/HINDU/CULTURAL/ABUSE/CHEMICAL Suicide Health Inventory Do you currently have [...] issues for which support from the hospital quality assurance qa lab technician might be helpful to patient and/or family? [...] Priti Hickey RN)1303 (Given - Provider: Priti Hickey RN) 1 [...] PIGGYBACK (CANCELED) 0810 (Given - Provider: Letty Hickey, VALERIE) for 120 Minutes, IV, Q24H, First dose on Sat06/01/10 at 0800, Until Discontinued warfarin (aka COUMADIN) tablet 10 mg (COMPLETED) 1600 (Given - Provider: Priti Hickey, VALERIE) 10 mg, Oral, WARFARIN - 1600, 1 dose, First dose on Sat05/31/10 at 1600 PRN Medication Order 05/30/2010 05/31/2010 06/01/2010 acetaminophen (aka TYLENOL) tablet 325-650 mg (CANCELE D) 1649 (Given - Provider: Tania Cerda RN) 0212 (Given - Provider: Alejandro Danielle)0900 (Given - Provider: Priti Hickey RN)2245 (Given - Provider: Milo Salians RN) 325-650 mg, Oral, Q4H PRN, Starting Sat05/26/10 at 1035, Until Discontinued, Pain/Fever docusate sodium (aka ENEMEEZ) enema 283 mg (CANCELED) 1335 (Given - Provider: Malathi Domingo, VALERIE) 1 Enema = 283 mg, Rectal, DAILY PRN, Sta rting Sat05/26/10 at 1036, Until Discontinued, Constipation lactulose oral liquid 20 g (CANCELED) 1235 (Given - Pr ovider: Malathi Domingo, VALERIE) 20 g, Oral, BID PRN, Starting Sat 0 at 1037, Until Discontinued, constipation documented in this encounter
--- OUTSIDE RECORDS SUMMARY | 2022-06-20 02:33 | XMS_ITS | Encounter Summary ---
:1945 Author Organization [employer] [employer] Address [address] [place] [address] Care Team Providers Name Role Phone Unassigned, Provider Primary Care Provider Unavailable Reason for Visit Reason Onset Date Comments HEADACHE 05/21/2010 Encounter Details Date Type Department Care Team Description 05/21/2010 Telephone Careline Unknown, Physician HEADACHE [address] [place], [place] [address] [place], [place] [phone] (Wo rk) Social History Tobacco Use Types Packs/Day Years Used Date Smoking Tobacco: Never Assessed Sex Assigned at Date Recorded Male 08/06/2021 5:59 PM CDT documented as of this encounter Nursing Notes Kristen Arroyo RN - 05/21/2010 8:28 PM CDT is calling regarding her having had spinal surgery the beginning of april. He then got meningitis. Patient was in the hospital for several weeks. He was released home with iv antibiotics onjuly . He was originally taking bactrim orally but this upset his stomach. Patient is now taking doxycycline 100 mg -two times a day. His headache continues. Patient is taking vicodin for pain control but he rates his headache now 5-6 on the scale of 10. He has no appetite. He is drinking some fluids. Patient does have dry heaves today. states that he has been sleeping most of the day. When he is awake he is confused asking odd questions. He is not running a fever. is wondering what they should do. TRIAGE REFERENCE: HEADACHE - ADULT CNG (c) 2009 STAT SYMPTOMS: Change in mental status ASSESSMENT: Location: back of neck, Onset: Ongoing, Duration: several weeks, Character: Aching. Severity (rate on scale of 1-10 with 0 having no pain and 10 is unbearable pain): 5-6. Precipitating factor: medications: uncertain. Other symptoms: nausea, vomiting. PMH: Chronic illness CURRENT MEDICATIONS: Yes: vicodin, doxycycline MEDICATION ALLERGIES: No HOME TREATMENT: Not discussed PLAN: [facility] verbalized understanding and is comfortable with this plan. Kristen Arroyo RN Mily Rojo - 05/21/2010 8:08 PM CDT Does the patient currently have insurance?No Which care system is the patient affiliated with?[facility] Situation: Pt has meningitis. Pt has a headache, dry heaves. A nurse will call you back within the next hour. If you have not heard from a nurse, please feel free to call us back at [phone] and state that you are waiting for a callback. documented in this encounter Plan of Treatment Not on filedocumented as of this encounter Visit Diagnoses Not on filedocumented in this encounter Care Teams Outdoor Studies Professor Relationship Specialty Start Date End Date Unassigned, Provider PCP - General 11/28/01 05/21/[address] [place] [id number] documented as of this encounter
--- OUTSIDE RECORDS SUMMARY | 2022-06-20 02:33 | XMS_ITS | Encounter Summary ---
:1945 Author Organization [employer] Address [address] [place] [address] Care Team Providers Name Role Phone Unassigned, Provider Primary Care Provider Unavailable Reason for Visit Reason Onset Date Comments Medication Questions 05/18/2010 Encounter Details Date Type Department Care Team Description 05/18/2010 Telephone Careline Unknown, Physician Medication Questions [address] [place], [place] [address] [place], [place] [phone] Social History Tobacco Use Types Packs/Day Years Used Date Smoking Tobacco: Never Alcohol Use Standard Drinks/Week Comments No 0 (1 standard drink = 0.6 oz pure alcoho l) Sex Assigned at Date Recorded Male 08/06/2021 5:59 PM CDT documented as of this encounter Nursing Notes Mariya Castrejon - 05/18/2010 7:41 PM CDT CONCERN: Pt's calls with medication concerns. Pt also has a fever and chills. TRIAGE REFERENCE: FEVER - ADULT CNG (c) 2009 STAT SYMPTOMS: non ASSESSMENT: Temperature/Route: 99.5, Onset: sudden, Duration: this evening. Other symptoms: headache. Exposure to other persons with communicable illnesses:no Intake & output: wnl. Overall appearance and present activity level: does not feel good. Complicating factors: pt hospitalized from 04/29-05/13 with meningitis. Is currently taking tetracycline. Also on Coumadin. INR today was over 4.0 but pt does not know exactly what the level is. (Pt's INRis managed by his [facility] physician). PMH: Patient Active Problem List Diagnoses Code ??? 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 Fever 780.60BQ ??? Probable Bacterial Meningitis 320.9D ??? DVT (Deep Venous Thrombosis) 453.40U ??? Neurogenic Bladder 596.54AL ??? HTN (Hypertension) 401.9AE ??? CAREPLAN: BACLOFEN [id number] CURRENT MEDICATIONS: Prior Encounter Medications Medication Sig Dispense Refill ??? acetaminophen (AKA TYLENOL) 325 MG tablet Take 1-2 Tabs by mouth every 4 hours as needed for Pain. 120 Tab 1 ??? atorvastatin (LIPITOR) 40 MG tablet Take 1 Tab by mouth daily. ??? baclofen (AKA LIORESAL) 10 MG tablet Take 1 Tab by mouth. Wean schedule: Take 10mg three times a day for 6 doses, then 10mg twice a day for 4 doses, then 10mg daily for 2 days, then 10mg twice daily NEEDED 90 Tab 2 ??? BACLOFEN IT 220 mcg by Intrathecal route daily. ??? citalopram (AKA CELEXA) 40 MG tablet Take 40 mg by mouth daily. ??? cyclobenzaprine (AKA FLEXERIL) 10 MG tablet Take 1 Tab by mouth three times a day as needed for Muscle Spasms. 60 Tab 0 ??? docusate sodium (AKA ENEMEEZ) 283 MG enema Insert 5 mL rectally daily as needed. PT. USES ENEMA EVERY OTHER DAY. 15 Each 0 ??? doxycycline hyclate (AKA VIBRA-TABS) 100 MG tablet Take 1 Tab by mouth two times a day. 60 Tab 0 ??? ferrous sulfate 325 (65 FE) MG tablet Take 1 Tab by mouth daily with breakfast. 60 Tab 0 ??? Gabapentin (AKA NEURONTIN) 100 MG tablet Take 2 Tabs by mouth three times a day. ??? hydrocodone-acetaminophen (AKA VICODIN,LORTAB) 5-500 MG tablet Take 1-2 Tabs by mouth every 4 hours as needed for Pain. 40 Tab 0 ??? lactulose 10 GM/15ML solution Take 30 mL by mouth two times a day as needed. For constipation 240 mL 0 ??? LORazepam (AKA ATIVAN) 0.5 MG tablet Take 2 Tabs by mouth three times a day. ??? OMEGA-3 FATTY ACIDS OR Take 1 Cap by mouth daily. ??? povidone-iodine (AKA BETADINE) 10 % external solution Apply topically two times a day. 15 mL 1 ? ? senna (AKA SENOKOT) 8.6 MG tablet Take 2 Tabs by mouth daily. USES 3 TABS IN THE AM & 2 TABSAT HS EVERY OTHER DAY. 30 Tab 0 ??? TRIMETHOPRIM OR Take 100 mg by mouth daily. ??? warfarin (AKA COUMADIN) 5 MG tablet Take 1 Tab by mouth daily. Adjust dose based on INR result as directed. 30 Tab 11 MEDICATION ALLERGIES: Yes: Zaroxolyn and Oxycodone HOME TREATMENT: Discussed per guideline Continue antibiotic ( states that pt has missed a couple of doses of antibiotic since being home) Remove excess clothing Force fluids Acetaminophen as directed, ASA or ibuprofen if not contraindicated by symptoms Call back if temperature is over 103 or fever over 3 days Watch for signs of bleeding. PLAN: Home treatment. Follow up with pcp tomorrow. Call back as needed. verbalizes understanding. Mariya Castrejon RN Beth Penny - 05/18/2010 7:25 PM CDT Does the patient currently have HP insurance?No Which care system is the patient affiliated with?[facility] Situation:Spouse states that pt has chills and a headache. Spouse states pt is taking blood thinnersand the antibiotic that he is taking is raising the effects of the blood thinner. Spouse is wondering if pt should be taking the next dosage of his antibiotic tonight. Background:Pt was released from [facility] on 05/13/10 with diagnosis of meningitis. A nurse will call you back within the next hour. If you have not heard from a nurse, please feel free to call us back at [phone] and state that you are waiting for a callback. documented in this encounter Plan of Treatment Not on filedocumented as of this encounter Visit Diagnoses Not on filedocumented in this encounter Care Teams Preschool Principal Relationship Specialty Start Date End Date Unassigned, Provider PCP - General 11/28/01 05/21/[address] [place] [address] documented as of this encounter
--- OUTSIDE RECORDS SUMMARY | 2022-06-20 02:33 | XMS_ITS | Encounter Summary ---
:1945 Author Organization [email or web address] Address [address] [place] [address] Care Team Providers Name Role Phone Unavailable Primary Care Provider Unavailable Reason for Visit Reason Comments POST-OP,EXAM 05-09-10 baclofen pump revisi on Encounter Details Date Type Department Care Team Description 05/22/2010 Office Visit Specialty Center Garry Neff Epe ndymoma (Primary Dx); [facility] X, Fever; [address] DVT (Deep Venous Thrombosis) [place] [address] [place], [place] [phone] (Wo rk) Social History Tobacco Use Types Packs/Day Years Used Date Smoking Tobacco: Never Alcohol Use Standard Drinks/Week Comments No 0 (1 standard drink = 0.6 oz pure alcoho l) Sex Assigned at Date Recorded Male 08/06/2021 5:59 PM CDT documented as of this encounter Last Filed Vital Signs Vital Sign Reading Time Taken Comments Blood Pressure 154/82 05/22/2010 10:51 AM CDT Pulse 100 05/22/2010 10:51 AM CDT Temperature 36.7 ??C (98.1 ??F) 05/22/2010 10:51 AM CDT Respiratory Rate - - Oxygen Saturation - - Inhaled Oxygen Concentration - - Weight - - Height - - Body Mass Index - - documented in this encounter Patient Instructions Patient InstructionsSelene Johnson RN - 05/22/2010 11:03 AM CDT [facility] Patient Instructions Please stop at third floor for blood draws today. You have been referred for a reprogramming of your baclofen pump-please follow up with Damián with Dr. Church at [phone]. You will be scheduled for a LP under fluoroscopy-with IR to R/O winnie. Follow up with Dr. Garry Neff, in 4 weeks or sooner depending on what the readjustment of baclofen pump and LP shows If tests were ordered, they will be reviewed at your next office visit. Please allow 10-14 days for forms to be completed and 2-3 business days for medication refills. Please call the Neurosurgery/Spine Clinic at [phone] with any further questions or concerns. 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 This regard a baclofen pump revision on May 09 with removal of catheter. I had the pleasure seeing this patient in clinic today. Things have not been going great since discharge. He was first sent home on Bactrim, which he did not tolerate because of GI symptoms, then he was switched to doxycycline. He tolerated this a little bit better, but the is very concerned whether this is effective or not. He has not had any fever, but the last few days he has had some dry heaves. He has not been eating well. He was started on iron and he really did not tolerate this well. The iron supplementation was stopped and just restarted yesterday. The most concerning thing is that over the last couple of days patient has been very sleepy and actually saying inappropriate phrases out of context, etc. He has been rather confused. ON EXAMINATION: Today, the patient is afebrile with a temperature of 98.1, pulse of 100 per minute,blood pressure 154/82. He is sleepy, but easily arousable. He has no meningeal irritation signs, specifically Babinski is negative. He does not have any focal neurological deficits of both upper extremi ties or cranial nerves. His incisions are as follows: The interscapular wound still appears erythematous and a little bit warm to touch, but no evidence of obvious collections. The midline lumbar woundlooks okay. The abdominal wound looks a little bit bulgy, but no evidence of infection. IMPRESSION: Questionable recurrent meningitis versus overdose of baclofen. RECOMMENDATIONS: I think that we need to do an LP on him to make sure that the CSF has completely cleared. Moreover, I think that we want to get a series of labs to see how his general labs look and Iwill request PM&R to re-program his baclofen pump to cut down the amount of baclofen that he is receiving. He has no signs of spasticity whatsoever, and I think that some of his behavior is suggestive of baclofen overdose. We will ask interventional radiologist to get an LP tomorrow. Of course, this gentleman is anticoagulated so that may be an issue, it was in the past once. ADDENDUM: Studies are quite striking in terms that his CBC shows a hemoglobin of 8.8 with a white cell count of 9800, so normal. His platelets are 267,000, again normal. He does have a left shift withband white cells of 79% with an absolute polymorphonuclear cell increase. He had a C-reactive protein, which is currently in process and a sed rate, which is also currently in process. His basic metabolic panel again is pending. His INR today is 3.0. What we will do is request baclofen pump reprogramming. Will try to get this done over here, if [facility]. Then, should switch him to Lovenox and stop the Coumadin so that we can go ahead and do a lumbar puncture along the course of this week. Of course, if the lumbar puncture shows pleocytosis I think that we need to remove the baclofen pump completely. I certainly am very disappointed and frustrated with the way the postoperative course has gone. I understand also his frustration. Both the patient and his have been extraordinarily understanding and patient. Will see how he does with the reduction of baclofen. MD angelina David/jj Dictated: 05/22/2010 17:58:32 Transcribed: 05/23/2010 13:03:57Job #: [id number] Doc #: [id number] cc: 1 Page 2 Patient Name: JIE CULLEN Visit Date: 05/22/2010 NEUROSURGERY [facility]IAL MEDICAL RECORD [address] [phone] Page 1 Patient: JIE CULLEN Location: [facility] HPN: [id number] Date of : 1945 Age: 65Y Visit Date: 05/22/2010 NEUROSURGERY documented in this encounter Nursing Notes 05/22/2010 10:40 AM CDT >> Elaine Antony RN Mon May 22, 2010 11:04 AM Post op exams for radical resection thoracic spinal tumor on 04-11-10 and baclofen pump revision on 05-09-10. Upper and lower back incisions appear CDI. Right lower abdom drssg appears CDI except for tinyspots of blood. C/o fields/s and neck stiffness. States Vicodin helps these sx's a little. Denies other pain. Elaine Antony RN documented in this encounter Plan of Treatment Not on filedocumented as of this encounter Procedures Procedure Name Priority Date/Time Associated Diagnosis Comme nts COMPLETE BLOOD Routine 05/22/2010 12:05 PM Fever Result s for this COUNT-W/DIFF CDT procedure are i n the results section. BASIC METABOLIC Routine 05/22/2010 12:05 PM Ependymoma Resul ts for this PANEL CDT procedure are i n the results section. C-REACTIVE PROTEIN Routine 05/22/2010 12:05 PM Fever Re sults for this CDT procedure are i n the results section. INR/PROTIME Same Day 05/22/2010 12:05 PM DVT (Deep Venous Resu lts for this CDT Thrombosis) procedure are i n the results section. ESR Routine 05/22/2010 12:05 PM Fever Results for this CDT procedure are i n the results section. documented in this encounter Results (ABNORMAL) INR/PROTIME (05/22/2010 12:05 PM CDT) P athologist Signature Protime 32.7 (H) 12.0 - [facility] 14.5 sec Coumadin Yes [facility] INR 3.0 [facility] Specimen Anatomical Collection Method Collection Time Receive d Time (Source) Location / / Volume Laterality 05/22/2010 12:05 05/22/2010 PM CDT 12:14 PM CDT Garry Neff MD LAB_1 Performing Organization Address [facility]/ZIP [facility] Phon e Number [facility] [phone] [phone] (ABNORMAL) BASIC METABOLIC PANEL (05/22/2010 12:05 PM CDT) [facility] [employer] Method Time Signature BUN 25 (H) 7 - 20 [facility] mg/dl Sodium 132 (L) 135 - 145 [facility] mmol/L Potassium 4.4 3.5 - 5.1 [facility] mmol/L Chloride 93 (L) 98 - 107 [facility] mmol/L CO2 27 22 - 30 [facility] mmol/L Glucose 103 70 - 180 [facility] mg/dl Creatinine 1.53 (H) 0.66 - [facility] 1.25 mg/dl GFR, Estimated 46.05 (L) >60 [facility] ml/min/1. 73m2 GFR, Est., If 55.72 (L) >60 [facility] Black ml/min/1. 73m2 Calcium 8.7 8.4 - [facility] 10.2 mg/dl Anion Gap 11 3 - 11 [facility] (calc.) mmol/L Specimen Anatomical Collection Method Collection Time Receive d Time (Source) Location / / Volume Laterality 05/22/2010 12:05 05/22/2010 PM CDT 12:14 PM CDT Garry Neff MD LAB_1 Performing Organization Address [facility]/ZIP [facility] Phon e Number [facility] [phone] [phone] (ABNORMAL) C-REACTIVE PROTEIN (05/22/2010 12:05 PM CDT) [facility] Method Time Signature C-Reactive 5.7 (H) 0.0 - 0.9 [facility] Protein mg/dl Comment: Note: results are expressed in mg/dL. Specimen Anatomical Collection Method Collection Time Receive d Time (Source) Location / / Volume Laterality 05/22/2010 12:05 05/22/2010 PM CDT 12:14 PM CDT Garry Neff MD LAB_1 Performing Organization Address City/[facility]/ZIP Code Phon e Number [facility] [phone] [facility] [address] [place] [phone] (ABNORMAL) ESR (05/22/2010 12:05 PM CDT) P athologist Signature ESR 87 (H) 0 - 15 [facility] mm/hr Specimen Anatomical Collection Method Collection Time Receive d Time (Source) Location / / Volume Laterality 05/22/2010 12:05 05/22/2010 PM CDT 12:14 PM CDT Garry Neff MD LAB_1 Performing Organization Address [facility] Phon e Number [facility] [phone] [facility] [address] [place] [phone] (ABNORMAL) HEMOGRAM/PLTS/DIFF (05/22/2010 12:05 PM CDT) [facility] gist Method Time Signature WBC 9.8 4.0 - [facility] 11.0 k/ul RBC 3.02 (L) 4.5 - 5.9 [facility] M/ul Hemoglobin 8.8 (L) 13.5 - [facility] 17.5 g/dl HCT 25.7 (L) 41.0 - [facility] 53.0 % MCV 85.2 80 - 100 [facility] fl MCH 29.3 26 - 34 [facility] pg MCHC 34.4 32 - 36 [facility] g/dl RDW 14.7 (H) 11.5 - [facility] 14.5 % Platelets 267 150 - 450 [facility] k/ul PMN/Band 79 (H) 43 - 72 % [facility] Lymph 14 (L) 17 - 43 % [facility] [place] 6 4 - 12 % [facility] Eos 0 0 - 8 % [facility] Baso 0 0 - 1 % [facility] Neutrophil 7.8 (H) 1.8 - 7.7 [facility] Absolute k/ul Lymph Absolute 1.4 1.0 - 4.8 [facility] k/ul [place] Absolute 0.6 0.1 - 0.7 [facility] k/ul Eos Absolute 0.0 0.0 - 0.5 [facility] k/ul Baso Absolute 0.0 0.0 - 0.2 [facility] k/ul Specimen Anatomical Collection Method Collection Time Receive d Time (Source) Location / / Volume Laterality 05/22/2010 12:05 05/22/2010 PM CDT 12:14 PM CDT Garry Neff MD LAB_1 Performing Organization Address City/State/ZIP Code Phon e Number [facility] [phone] [phone] documented in this encounter Visit Diagnoses 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
--- OUTSIDE RECORDS SUMMARY | 2022-06-20 02:33 | XMS_ITS | Encounter Summary ---
:1945 Author Organization [facility] Address [address] [place] [address] Care Team Providers Name Role Phone Unavailable Primary Care Provider Unavailable Encounter Details Date Type Department Care Team Description 05/25/2010 Orders Only External to Unknown, Physici an [address] [place] [address] (Wo rk) Social History Tobacco Use Types Packs/Day Years Used Date Smoking Tobacco: Never Alcohol Use Standard Drinks/Week Comments No 0 (1 standard drink = 0.6 oz pure alcoho l) Sex Assigned at Date Recorded Male 08/06/2021 5:59 PM CDT documented as of this encounter Procedure Notes External, Provider - 05/25/2010 12:00 AM CDTAssociated Order(s): SCANNED LAB External, Provider - 05/25/2010 12:00 AM CDTAssociated Order(s): SCANNED LAB documented in this encounter Plan of Treatment Not on filedocumented as of this encounter Procedures Procedure Name Priority Date/Time Associated Diagnosis Comme nts SCANNED LAB 05/25/2010 12:00 AM Results for this CDT procedure are i n the results section . documented in this encounter Results SCANNED LAB (05/25/2010 12:00 AM CDT) Specimen (Source) Anatomical Location Collection Method / Collectio n Time Received Time / Laterality Volume 05/25/2010 Narrative This result has an attachment that is no t available. Transcriptions External, Provider - 05/25/2010 12:00 AM CDT External, Provider - 05/25/2010 12:00 AM CDT Physician Unknown LAB_1 documented in this encounter Visit Diagnoses Not on filedocumented in this encounter
--- OUTSIDE RECORDS SUMMARY | 2022-06-20 02:33 | XMS_ITS | Encounter Summary ---
:1945 [facility] Address [address] [place] [address] Care Team Providers Name Role Phone Unavailable Primary Care Provider Unavailable Encounter Details Date Type Department Care Team Description 05/26/2010 [facility] [address] [place] [address] Social History Tobacco Use Types Packs/Day Years [...] Diagnosis Comme nts XR C-ARM 30-59 Routine 05/26/2010 10:35 AM Result s for this MINUTES CDT procedure are i n the results section. documented in this encounter Results XR C-ARM 30-59 MIN (05/26/2010 10:35 AM [...] order is completed and status is final. Garry Neff MD RAD GD documented in this encounter Visit Diagnoses Not on filedocumented in this encounter
--- OUTSIDE RECORDS SUMMARY | 2022-06-20 02:33 | XMS_ITS | Encounter Summary ---
:1945 Author Organization [facility] Address [address] [place] [address] Care Team Providers Name Role Phone Unassigned, Provider Primary Care Provider Unavailable Reason for Visit Reason Comments Post Hospital Discharge Follow Up Encounter Details Date Type Department Care Team Description 05/16/2010 Telephone Digital Manager Brittny Leyva, Post Hospital [address] - tile ere[place] [id number] [facility] [address] [place], [place] [id number] [place] [id number] Social History Tobacco Use Types Packs/Day Years Used Date Smoking Tobacco: Never Alcohol Use Standard Drinks/Week Comments No 0 (1 standard drink = 0.6 oz pure alcoho l) Sex Assigned at Date Recorded Male 08/06/2021 5:59 PM CDT documented as of this encounter Nursing Notes Brittny Leyva, RN - 05/16/2010 5:16 PM CDT Carl Cullen was hospitalized for REVISION OF BACLOFEN PUMP and discharged from [facility] on 05/13/10 to home. Spoke with spouse. Name of senior technologist and contact information WADE. Verbal permission obtained to talk to senior technologist? Yes Patient having difficulty with ADL???s? yes PT. IN W/C. FAMILY HELPS WITH ADL'S. Reconciled discharge medications with spouse. Discrepancies noted: NONE Concerns discussed: Symptoms HEADACHE, VOMITING FOR LAST 36 HRS. OFF & ON. NOW KEEPING WATER & VICODIN DOWN. Pain control: SEE ABOVE. Patient teaching: Coumadin/INR Reviewed hospital discharge instructions Reviewed when to call Careline and number to call: [phone] or Confirmed using teach back method that patient and/or caregiver can state their medications and doses to take, discharge instructions, appointments they have scheduled, who to call if their condition worsens. Follow up Plan: Appointments made by hospital staff: CLINIC: [facility]: Neurosurgery; [phone]; [address] [place] [id number] DOCTORS NAME: Dr. Garry Baron WHEN TO BE SEEN: On (date) 05/22 at 10:40 REASON FOR APPOINTMENT: MD follow up Appointments made today:none needed. INR testing: by outside MD office. Other lab visit scheduled: NO . WILL CALL PT. BACK TOMORROW, 05/17/10 TO SEE HOW HE IS DOING WITH VOMITING & HEADACHE. Concerns to address at follow up clinic appointment: 05/17/10, PT. SAW PCP TODAY. PER , WADE, D/C LABS WERE DRAWN INCLUDING INR. PT. STARTED DOXYCYCLINE & HAS KEPT 1ST DOSE DOWN. H.A. IS BETTER & PT. NO LONGER VOMITING. NO CONCERN FOR INCREASED INTERCRAINIAL PRESSURE AT THIS TIME BY PCP OR DR. BARON, NEUROSURGEON. documented in this encounter Plan of Treatment Not on filedocumented as of this encounter Results (ABNORMAL) INR/PROTIME (05/22/2010 12:05 PM CDT) P athologist Signature Protime 32.7 (H) 12.0 - [facility] 14.5 sec Coumadin Yes [facility] INR 3.0 [facility] Specimen Anatomical Collection Method Collection Time Receive d Time (Source) Location / / Volume Laterality 05/22/2010 12:05 05/22/2010 PM CDT 12:14 PM CDT Garry Baron MD LAB_1 Performing Organization Address City/State/ZIP Code Phon e Number [facility] [phone] [facility] [address] [place] [phone] (ABNORMAL) BASIC METABOLIC PANEL (05/22/2010 12:05 PM CDT) [facility] gist Method Time Signature BUN 25 (H) 7 [...] 05/22/2010 PM CDT 12:14 PM CDT Garry Baron MD LAB_1 Performing Organization Address City/State/[facility] Phon e Number [facility] [phone] [facility] [address] [phone] documented in this encounter 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
--- OUTSIDE RECORDS SUMMARY | 2022-06-20 02:33 | XMS_ITS | Encounter Summary ---
:1945 Author Organization [facility] Address [address] [place] [address] Care Team Providers Name Role Phone Unavailable Primary Care Provider Unavailable Encounter Details Date Type Department Care Team Description 05/26/2010 [facility] [address] [place] [address] Social History Tobacco Use Types Packs/Day Years [...] Diagnosis Comme nts MR THORACIC SPINE Routine 05/26/2010 4:52 PM Resu lts for this W/WO IV CONT CDT procedure are i n the results section. documented in this encounter Results MR THORACIC SPINE WITH/WITHOUT CONTRAST (05/26/2010 4:52 PM CDT) Anatomical Region Laterality Modality Spine, T-Spine, L-Spine, C-Spine, Skeletal Magnetic Resonance Specimen (Source) Anatomical Collection Method Collection Time Re ceived Time Location / / Volume Laterality 05/26/2010 4:52 PM CDT Narrative 05/26/2010 5:18 PM CDT [facility] [place] THORACIC SPINE MRI ? 05/26/2010 INDICATION: Evaluate [...] nal. 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 Garry Neff MD RAD MRI documented in this encounter Visit Diagnoses Not on filedocumented in this encounter
--- OUTSIDE RECORDS SUMMARY | 2022-06-20 02:33 | XMS_ITS | Encounter Summary ---
:1945 Author Organization [facility] Address [address], [place] [address] Care Team Providers Name Role Phone Unavailable Primary Care Provider Unavailable Encounter Details Date Type Department Care Team Description 05/26/2010 Surgery RH Operating Room Maurice Baron, PLACEMENT LUMBAR DRAIN [address] Александр Duarte MD [place], [place] [id number] [phone] [place], [place] [address] (Wo rk) Social History Tobacco Use Types Packs/Day Years Used Date Smoking Tobacco: Never Alcohol Use Standard Drinks/Week Comments No 0 (1 standard drink = 0.6 oz pure alcoho l) Sex Assigned at Date Recorded Male 08/06/2021 5:59 PM CDT documented as of this encounter Last Filed Vital Signs Vital Sign Reading Time Taken Comments Blood Pressure 125/81 05/26/2010 8:00 AM CDT Pulse 96 05/26/2010 8:00 AM CDT Temperature 35.6 ??C (96 ??F) 05/26/2010 8:00 AM CDT Respiratory Rate 16 05/26/2010 8:00 AM CDT Oxygen Saturation 100% 05/26/2010 8:00 AM CDT Inhaled Oxygen Concentration - [...] 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 He was admitted to [facility] on 04/29 for the fever. He also [...] Hospital Course: Mr. Cullen was admitted to [facility] on 05/26/2010 following lumbar puncture. He [...] mg intravenously daily for 10 days. Qty: 79558 mg Refills: 0 CONTINUE these medications which [...] Dr. Maurice Osuna RN Neurosurgery Nurse Clinician [phone] I, Geetha Osuna RN, am serving as [...] from the original note were not included. [address] [place] [address] Discharge Instructions for: Jie Cullen Thank you for choosing [facility] as your hospital. A copy of your [...] additional information about your medications, visit this [facility] website, [email or web address]. Current Discharge Medication List START taking these medications enoxaparin (AKA LOVENOX) 10 MG/0.1ML injection Inject 100 mg subcutaneously every 12 hours. Qty: 10 mL Refills: 0 Last dose at 1130 on 06/01/2010 Take next dose tonight and then start every 12 hours on home schedule vancomycin (AKA VANCOCIN) 1000 MG injection Administer 2,500 mg intravenously daily for 10 days. Qty: 19233 mg Refills: 0 Last dose at 8 [...] care doctor. Additional Orders Clinic Referral CLINIC: [facility]: Neurosurgery; [phone]; [address] [place] [address] DOCTORS NAME: Dr. Maurice Baron WHEN TO BE SEEN: On (date) 06/19 at 2:00 REASON FOR APPOINTMENT: MDfollow up Discharge Instructions Monitor incision daily for signs of infection (redness, drainage, warmth). Call the Neurosurgery Clinic at [phone] with any incisional changes. Keep incision dry. Cover with Nexcare or Tegaderm for showers, for one week, and remove immediately after shower. Leave incision open to air. Call the doctor for these danger signs Any changes in your incision: redness, swelling, drainage, tenderness, or fever greater than 100.5. Any changes in sensation or decrease in strength to your extremeties. Neurosurgery clinic [phone]. ADMIT TO HOME CARE AGENCY NAME: [facility] [phone]. DATE OF FIRST VISIT: 1-2 days after [...] (Infusion clinic to draw) CLINIC REFERRAL CLINIC: [facility]; [facility] [phone] DOCTORS NAME: Dr. Arjun Mcmahan WHEN TO [...] shortness of breath Community [place] [address] For questions about your discharge instructions call the nursing unit : [facility] [phone] Emergency & Urgently Needed Care: For emergencies call 911 and/or get medical help right away. If you are a [facility] member and have medical needs after clinic hours you may call the CareLineat [phone] or . All medical devices (telemetry/IV/etc) unless otherwise ordered, have been removed before discharge. Smoking and second-hand smoke exposure: Smoking damages blood vessels, reduces the oxygen in your blood and makes your heart beat too fast. If you smoke you should quit. Everyone should avoid second- hand smoke. If you would like further assistance after your discharge, please contact [phone] or visit www.[employer] and [employer] [facility] [employer] can offer further [...] weight will also be followed by the Shop Tech when you go in for your [...] out. I understand my discharge instructions: Jie Martinegele (or Evaporator Repairer) documented in this encounter Medications at Time of Discharge Medication Sig Dispensed Refills Start Date End Date vancomycin (AKA Administer 2,500 mg 30238 mg 0 06/01/2010 06/11/2010 VANCOCIN) 1000 MG [...] Hickey RN - 06/01/2010 1:37 PM CDT [facility] Discharge Note - Nursing Admission [...] Bocanegra OTR/L - 06/01/2010 1:02 PM CDT [facility] Occupational Therapy Progress Note This patient is scheduled to be seen by Occupational Therapy. VLADIMIR Oliveros (pager) OT Dept #: [phone] - OT Weekend Pager #: [phone] - [facility] Main #: [phone] Tania Brantley - 06/01/2010 12:21 PM CDT [facility] Care Management Discharge Note Admission Date/Time: 05/26/2010 7:05 AM Attending MD: Maurice Baron Discharge Plan: Anticipated Discharge Date: 06/01/10 Anticipated Discharge Time: 13:00 Patient to be discharged: with Home Care Service: [facility] for home PT. Patient to be accompanied by: spouse. Transportation arranged for discharge: has own wc here Pt has been cleared for dc today. Will need 10 days of IV Vanco. Infusions have been arranged through [address] in [place]. Have been in contact with Archana, house wrecker who is aware pt discharging today and [...] for her to cosign and send to [facility]. Pt also open to HC for home [...] Ferreira in coumadin Clinic: Phone: and Fax: [facility]; ArchanaHowieAuto Finance Sales Rep: Phone: and Fax: [facility]: Phone: and Fax: Followup: as ordered on dc instructions. Discharge Disposition Code: 06: Discharged or transferred to home under care of organized home health service organization Report completed by Tania Brantley RN, Pager Number [phone] --- End of Report --- Tania Brantley - 06/01/2010 11:39 AM CDT [facility] DISCHARGE ORDERS Patient Name: Jie Cullen Date of : 1945 Allergies: Zaroxolyn and Oxycodone Immunizations: Most Recent Immunizations Administered Date(s) Administered ??? Flu Vac (3+ yrs) 10/06/2009 ??? H1n1 Miv Csl 3+ Yr (Injected) 12/06/2009 ??? Pneumococcal, PPSV23 10/06/2009 Current Attending Provider: Maurice Baron MD Discharge Procedure Orders Clinic Referral Order Comments: CLINIC: [facility]: Neurosurgery; [phone]; [address] [place] [address] DOCTORS NAME: Dr. Maurice Baron WHEN TO BE SEEN: On (date) 06/19 at 2:00 REASON FOR APPOINTMENT: MDfollow up Discharge Instructions Order Comments: Monitor incision daily for signs of infection (redness, drainage, warmth). Call the Neurosurgery Clinic at [phone] with any incisional changes. Keep incision dry. Cover with Nexcare or Tegaderm for showers, for one week, and remove immediately after shower. Leave incision open to air. Call the doctor for these danger signs Order Comments: Any changes in your incision: redness, swelling, drainage, tenderness, or fever greater than 100.5. Any changes in sensation or decrease in strength to your extremeties. Neurosurgery clinic [phone]. ADMIT TO HOME CARE Order Comments: AGENCY NAME: [facility] [phone]. DATE OF FIRST VISIT: 1-2 days after [...] to draw) CLINIC REFERRAL Order Comments: CLINIC: [facility]; [facility] [phone] DOCTORS NAME: Dr. Arjun Mcmahan WHEN TO [...] mg intravenously daily for 10 days. Qty: 72312 mg Refills: 0 CONTINUE these medications which [...] have been electronically signed. (In accordance with [place] Fed. Regulation Set, Fed A0232 - Types of Authentication) Discharging MD: Dr. Baron Today's Date: 06/01/10 --- End of Report --- Tania Brantley - 06/01/2010 11:33 AM CDT [facility] Transfer Orders to Home Health Care Patient Name: Jie Cullen Date of : 1945 Allergies: Zaroxolyn and Oxycodone Immunizations: Most Recent Immunizations Administered Date(s) Administered ??? Flu Vac (3+ yrs) 10/06/2009 ??? H1n1 Miv Csl 3+ Yr (Injected) 12/06/2009 ??? Pneumococcal, PPSV23 10/06/2009 Current Attending Provider: Maurice Baron MD Discharge Procedure Orders Clinic Referral Order Comments: CLINIC: [facility]: Neurosurgery; [phone]; [address] [place] [address] DOCTORS NAME: Dr. Maurice Baron WHEN TO BE SEEN: On (date) 06/19 at 2:00 REASON FOR APPOINTMENT: MDfollow up Discharge Instructions Order Comments: Monitor incision daily for signs of infection (redness, drainage, warmth). Call the Neurosurgery Clinic at [phone] with any incisional changes. Keep incision dry. Cover with Nexcare or Tegaderm for showers, for one week, and remove immediately after shower. Leave incision open to air. Call the doctor for these danger signs Order Comments: Any changes in your incision: redness, swelling, drainage, tenderness, or fever greater than 100.5. Any changes in sensation or decrease in strength to your extremeties. Neurosurgery clinic [phone]. ADMIT TO HOME CARE Order Comments: AGENCY NAME: [facility] [phone]. DATE OF FIRST VISIT: 1-2 days after [...] to draw) CLINIC REFERRAL Order Comments: CLINIC: [facility]; [facility] [phone] DOCTORS NAME: Dr. Arjun Mcmahan WHEN TO [...] mg intravenously daily for 10 days. Qty: 72395 mg Refills: 0 CONTINUE these medications which [...] have been electronically signed. (In accordance with [place] Fed. Regulation Set, Fed A0232 - Types of Authentication) Discharging MD: Dr. Baron Today's Date: 06/01/10 --- End of Report --- George Tang - 06/01/2010 10:43 AM CDT Infectious Disease Consult Service Plan for discharge: Patient to be discharged to: Home He will follow-up at the [facility] in [place] for intravenous infusion of vancomycin 2500 mg daily. Vancomycin stop date: 06/09/10 Patient does not need Infectious Diseases follow-up with us. Laboratory Monitoring: Vancomycin trough on SaturdayJune 05 Patient should follow-up with his primary prior to completing the vancomycin on 06/09/10 Patient's primary physician is Dr. Arjun Tang MD Geetha Osuna RN - 06/01/2010 7:49 AM CDT [facility] NeuroSurgery Progress Note 06/01/2010 Vitals [...] INR 3.0 05/22/10 12:05 PM ??? CSFRBC 35805 05/26/10 10:30 AM ??? CSFRBC 57603 05/26/10 10:30 AM ??? CSFWBC 318* 05/26/10 [...] am Geetha Osuna RN Neurosurgery Nurse Clinician [phone] I, Geetha Osuna RN, am serving as [...] Salinas RN - 05/31/2010 9:53 PM CDT [facility] Progress Note (Nursing) Identify/Problem(s): Post [...] Mckayla Hernandez - 05/31/2010 8:37 PM CDT [facility] Clinical Pharmacy Follow Up Kinetics Note Assessment: Jie Cullen, [id number], is a 65 yr year old male [...] any questions. Mckayla Hernandez, PharmD Pager Number [phone] --- End of Report --- Priti Hickey RN - 05/31/2010 8:07 PM CDT Problem: Falls Risk Goal: Moderate Risk (5-10): Fall Prevention I applied all active moderate risk falls prevention interventions. Priti Hickey RN - 05/31/2010 6:37 PM CDT [facility] Progress Note (Nursing) Identify/Problem(s): [...] power applied. Received PICC line this morning. Rgeen catheter changed per patient request in preparation for goinghome tomorrow. BP 124/75 Pulse 91 Temp(Src) 97.5 ??F (36.4 ??C) (Oral) Resp 18 Ht 5' 10 (1.778 m) Wt 97.523 kg (215 lb) SpO2 98% Plan: Monitor comfort level, assist with transfers, reposition, monitor skin, teach discharge planning. Priti Hickey, RN --- End of Report --- Tania Brantley Ruben - 05/31/2010 3:44 PM CDT [facility] Care Management Stain Remover Follow Up Note Admission Date/Time: 05/26/2010 7:05 [...] pt can receiveiv infusions at the [address] [place] Dr. Mcmahan starts clinic at 13:00 tomorrow. I will fax her the dc orders to for her signature and she will then fax to hospital. Roderick spoke with the Auto Finance Sales Rep, Archana at [facility], ph: and fax: . She confirms they can provide iv infusion for pt. I did fax her some information this afternoon for her review. Will need to fax her dc orders and summary in am as well. During weekdays, he will come into infusion clinic and on weekday evenings and weekends will go into the ED for infusions. Also spokewith Dr. Tang, ID. Requested he be very specific when [...] completed by Tania Brantley RN, Pager Number [phone] --- End of Report --- Martha Thomas - 05/31/2010 3:26 PM CDT [facility] PM&R Progress Note () Date [...] South MD --- End of Report --- Molding Machine Setter, Lucy Clemente - 05/31/2010 10:20 AM CDT [facility] NeuroSurgery Progress Note Pt doing [...] INR 3.0 05/22/10 12:05 PM ??? CSFRBC 54600 05/26/10 10:30 AM ??? CSFRBC 46291 05/26/10 10:30 AM ??? CSFWBC 318* 05/26/10 [...] Dwyer RN - 05/31/2010 3:08 AM CDT [facility] Progress Note (Nursing) Identify/Problem(s): [...] Salinas RN - 05/30/2010 10:18 PM CDT [facility] Progress Note (Nursing) Identify/Problem(s): Post Op Status Desired Outcome(s): Will have optimal surgical recovery. Evaluation: VSS, alert, oriented X4, and afebrile. No change in neuro functions noted. Surgical dressings are C/D/I and flat, no hematoma noted. Denies any discomfort all shift, repositioned frequently to maintainintact skin integrity and to keep him comfortable. Has his at the bedside, very helpful. Ronald is patent with good output. Bowels are active in all quadrants. Plan: Will continue with plan of care. 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 Britni Huerta PharmD Pager Number: [phone] --- End of Report --- Tania Brantley - 05/30/2010 2:59 PM CDT [facility] Care Management Stain Remover Initial Assessment Admission Date/Time: 05/26/2010 7:05 AM Attending MD: Maurice Baron Data Jie Cullen was referred to this Stain Remover for discharge planning. Chart reviewed, discussed with interdisciplinary team, as well as with patient and family. 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 Insurance: Payor: MEDICARE PART B ONLY [id number] Plan: MEDICARE PART B ONLY Product Type: Medicare Current Living Situation: Patient lives with their spouse. Support System: family and friends Services Involved: Home PT through [facility] in [place]. Ph: and Fax: Additional Data: Pt's primary MD is Dr. Arjun Mcmahan at the [facility] Coordination of Care and Referrals: Provided [...] could go into the ER at the [address] iv infusions. I had spoken with house wrecker in the ED at hospital who told [...] q12 hrs. Will need to see what [place] facility can provide for pt. Pt very [...] completed by Tania Brantley RN, Pager Number [phone] --- End of Report --- Martha Thomas - 05/30/2010 1:24 PM CDT [facility] PM&R Progress Note () Date of service: 05/30/2010 Diagnosis: Encounter Diagnoses Code Name Primary? 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 Martha South MD [phone] --- End of Report --- Molding Machine Setter, Lucy Clemente - 05/30/2010 1:21 PM CDT [facility] NeuroSurgery Progress Note Pt is [...] INR 3.0 05/22/10 12:05 PM ??? CSFRBC 73007 05/26/10 10:30 AM ??? CSFRBC 85155 05/26/10 10:30 AM ??? CSFWBC 318* 05/26/10 [...] Archana Pace - 05/30/2010 12:28 PM CDT [facility] Laborer Rags Department Progress Note Chair Car Driver Notes: Initial assessment for spiritual and emotional [...] skills and resources. They are appreciative of anodizer and sewing machine operator visits and prayers. I offered prayers for healing and strength. Plan: Laborer Rags will continue following for ongoing spiritual and emotional support to pt/family. Report Completed by: Archana Pace, [facility] Staff Chair Car Driver --- End of Report --- Malathi Domingo, RN - 05/30/2010 10:58 AM CDT [facility] Progress Note (Nursing) Identify/Problem(s): comfort [...] Long RN - 05/30/2010 3:45 AM CDT [facility] Progress Note (Nursing) Identify/Problem(s): Post [...] Salinas RN - 05/29/2010 9:48 PM CDT [facility] Progress Note (Nursing) Identify/Problem(s): Post [...] Cerda RN - 05/29/2010 6:58 PM CDT [facility] Progress Note (Nursing) Identify/Problem(s): Post op status Desired Outcome(s): Will be stable Evaluation: VSS, patient denies pain, patient tolerating clear liquid diet. Dressing to abdomen and back are dryand intact, green patent. at bedside, no other complaints at this time. Plan: Continue to monitor. Tania Cerda, VALERIE --- End of Report --- Tania Brantley - 05/29/2010 2:26 PM CDT [facility] Stain Remover Progress Note Pt has gone to OR. Briefly met with . Pt well known to me from previous admissions. Informed Lazara would attempt to meet with them tomorrow. She feels pt doing better and in pretty good sprits. Report completed by Tania Brantley RN, Pager Number [phone] --- End of Report --- Garth Rodriguez RN - 05/29/2010 11:40 AM CDT [facility] Nursing Pre-Op Note Admission Date/Time: 05/26/2010 7:05 AM Time of transport to the Operating Room: 1140 Transported by: Litter/cart Pre-Op checklist complete?: Yes Report Completed by: Romelia Rodriguez RN --- End of Report --- Lisy Durand RN - 05/29/2010 3:15 AM CDT [facility] Progress Note (Nursing) Identify/Problem(s): Comfort [...] Durand RN --- End of Report --- isy Collazo RN - 05/29/2010 3:09 AM CDT Problem: Falls Risk Goal: Low Risk (0-4): Fall Prevention I applied all active low risk falls prevention interventions. AT Sarita Bardales RN - 05/28/2010 10:45 PM CDT [facility] Progress Note (Nursing) Identify/Problem(s): Comfort Desired Outcome(s): Pt will be comfortable Evaluation: Pt comfortable with position changes. No prn pain medication requested. Sat on the edge of the bed and ate well for supper. Plan: Baclofen pump to be removed tomorrow. Discussed plan of care with patient and family. Sarita Bardales RN --- End of Report --- AT Sarita Bardales RN - 05/28/2010 6:37 PM CDT Problem: [...] Dietz RN - 05/28/2010 10:30 AM CDT [facility] Progress Note (Nursing) Identify/Problem(s): [...] mcg/mL. Dose following reprogrammin mcg/day simple continuous. [place] volume 35.7mL, Alarm date 07/09/2011. A/P: 65 [...] Contact Dr. Cristine Henson from PMR at [phone] if questions or if displaying symptoms of withdrawal (markedly increased muscle tone, itching, decrease in seizure threshold). 6. Recommend continuing home bowel program of enemeez every other day, next due 05/29, if able to schedule prior to surgery. Total time: 25. Counseling and Coordination time: 20. Mónica Saldana - 05/28/2010 6:28 AM CDT [facility] Progress Note (Nursing) Identify/Problem(s): [...] 05/27/2010 8:57 PM CDT [facility] Progress Note (Nursing) Identify/Problem(s): Comfort Hgb Desired [...] Cristine Henson - 05/27/2010 1:17 PM CDT [facility] PM&R Progress Note () Date [...] Simple continuous mode 2. Dose 127 mcg/day [place] volume: 35.8 mL Low reservoir alarm date: [...] Contact Dr. Cristine Henson from PMR at [phone] if questions or if displaying symptoms of withdrawal (markedly increased muscle tone, itching, decrease in seizure threshold). Total time: 25. Counseling and Coordination time: 20. Cristine Henson MD --- End of Report --- Ozzy Dietz RN - 05/27/2010 12:40 PM CDT [facility] Progress Note (Nursing) Identify/Problem(s): [...] Oral 91 17 98 % - - 07/17/10 1415 125/77 mmHg 98.1 ??F (36.7 ??C) Oral 89 18 99 % - - 05/27/10 1100 103/60 mmHg 97.5 ??F (36.4 ??C) Oral 100 17 94 % - - Plan: Continue to monitor. Ozzy Dietz RN --- End of Report --- Arjun Walters RN - 05/26/2010 10:57 PM CDT [facility] Progress Note (Nursing) Identify/Problem(s): comfort [...] Walters RN - 05/26/2010 6:39 PM CDT [facility]. MD Notified Note Name of [...] Roula Zuniga - 05/26/2010 2:30 PM CDT [facility] Clinical Pharmacy Medication Reconciliation Note Medication History: per [facility] Medications marked Taking as of [...] three times a day for 6 doses, [id number] twice a day for 4 doses, [id number] daily for 2 days, [id number] twice daily NEEDED BACLOFEN IT 220 mcg [...] condition. PHARMACIST NAME: Roula Garcia [facility] Phone/Pager #: [phone] --- End of Report --- documented in this encounter Procedure Notes Maurice Baron - 07/12/2010 10:00 AM CDT DATE OF SURGERY: 05/26/2010 SURGEON: Maurice Baron MD CUSTODY OFFICER: None. ANESTHESIA: Local plus sedation. PREOPERATIVE DIAGNOSES: [...] 07/12/2010 10:00:55 Transcribed: 07/12/2010 22:40:18 Doc #: [id number] cc:Maurice Baron MD, Referring Provider 1 Page 1 Patient Name: JIE CULLEN INPATIENT OPERATIVE REPORT CONFIDENTIAL MEDICAL RECORD [address] [phone] Page 1 Patient: JIE CULLEN Location: [facility] HPN: [id number] Admit Date: 05/26/2010 Date of : 1945 Discharge Date: 06/01/2010 Age: 65Y INPATIENT OPERATIVE REPORT Maurice Baron - 06/26/2010 5:19 PM CDT DATE OF SURGERY: 05/29/2010 STAFF SURGEON: Maurice Baron MD CUSTODY OFFICER: Lucy Parker, [facility] PREOPERATIVE DIAGNOSES: 1. Status post [...] woken up, extubated and taken stable to [facility]. Procedure well tolerated with no apparent complication s. Needle and sponge counts correct and verified at the end of the case. EBL was approximately 25 mLor less. Maurice Baron MD kda Dictated: 06/26/2010 17:19:06 Transcribed: 06/27/2010 08:10:23 Doc #: [id number] cc:Maurice Baron MD, Referring Provider 1 Page 1 Patient Name: JIE CULLEN INPATIENT OPERATIVE REPORT CONFIDENTIAL MEDICAL RECORD [address] [phone] Page 1 Patient: JIE CULLEN Location: [facility] HPN: [id number] Admit Date: 05/26/2010 Date of : 1945 Discharge Date: 06/01/2010 Age: 65Y INPATIENT OPERATIVE REPORT Priti Agudelo RN - 05/31/2010 10:38 AM CDT [facility] PICC Line Insertion Procedure Note Singe Lumen PICC Site One Date of Service: 05/31/10 UNIVERSAL PROTOCOL: Procedure Location: S10 Condition: Elective Consent: Imformed Written Patient Identification: Verified Time Out: Performed Site Prep: Chloraprep Protective Barriers: Maximum Barriers Used including Handwashing, Sterile Gown, Gloves, Mask, Eye Protection & Cap PROCEDURE: Insert/Remove: Inserted Inserted By?: PICC Services Indication: Antibiotics Visitor Services Representative: Power PICC Size (Slovenian): 5 Length (cm): 46 CM Lot #: [id number] Location: Right or Left: Right Site: Basilic Dressing: Tegaderm w/antimicrobial patch ULTRASOUND GUIDED ACCESS. Priti Agudelo RN, CRNI --- End of Report --- Lucy Parker - 05/29/2010 3:28 PM CDT [facility] Brief Operative Progress Note Surgery Date: 05/29/2010 Primary Surgeon: Surgeon(s): Maurice Baron Assistants: Lucy Parker PA-C Post-op Diagnosis: BACLOFEN PUMP INFECTION Procedure: REMOVAL OF BACLOFEN PUMP EBL: 10 mL Complications / Findings: None/ see dictated operative note Plan: Transfer back to [address] [place] [address] Resume pre operative orders IV valium prn [...] The procedure was medically necessary for an medical staff assistant because Dr. Baron needed the operative exposure and assistance that I provided. This allowed him to safely and efficiently operate. It was also important that I help ligate blood vessels to maintain hemostasis and reduce the bleeding risk. The assistance that I provided reduced operative time which meant less general anesthetic for the patient. Lucy Parker PA-C --- End of Report --- [facility] ANESTHESIA, PROVIDER - 05/29/2010 12:00 AM CDT [facility] ANESTHESIA, PROVIDER - 05/29/2010 12:00 AM CDT [facility], PROVIDER - 05/29/2010 12:00 AM CDTAssociated Order(s): EKG IP; EKG IP [facility] ANESTHESIA, PROVIDER - 05/29/2010 12:00 AM CDT [facility] ANESTHESIA, PROVIDER - 05/29/2010 12:00 AM CDT [facility] ANESTHESIA, PROVIDER - 05/26/2010 12:00 AM CDT [facility] ANESTHESIA, PROVIDER - 05/26/2010 12:00 AM CDT [facility] ANESTHESIA, PROVIDER - 05/26/2010 12:00 AM CDT [facility] ANESTHESIA, PROVIDER - 05/26/2010 12:00 AM CDT documented in this encounter Consult Notes Stephan Anderson MD - 05/30/2010 11:24 AM CDTAssociated Order(s): INFECTIOUS DISEASE INPT CONSULT [facility]. Consultation Note () Date of [...] which went uneventfully. However was admitted to [facility] on 04/28 for spiking fever, chills. He [...] with decreased appetite. He was admitted to [facility] on 05/26/2010nd had CSF drain that day. [...] 2000 S/p resection by Dr. Glasgow at [place] in 05/2000. However resection was incomplete due [...] postop bleed cmpl ??? 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 Ivc filter placement 1999 Current [...] 1 at baseline. Lives with his in [place]. Review of Systems: A complete ROS was [...] CSF 05/26: protein 248, glucose 25, RBC 63981, nucleated cells 318 with 80%PMN. CSF 04/30 [...] spent in counseling and coordinating care. A car hop was not used during this exam. Report Completed by: Stephan ANDERSON MD, PGY-2, [phone] --- End of Report --- Relevant Reference [...] 2:12 PM CDTAssociated Order(s): PM&R INPT CONSULT [facility] PM&R Progress Note () Date [...] 2000 S/p resection by Dr. Glasgow at [place] in 05/2000. However resection was incomplete due [...] UNITS ORDERED 2 - ??? UNIT NUMBER [id number] - ??? BLOOD COMPONENT TYPE THAWED PLASMA - ??? STATUS OF UNIT ISSUED - ??? TRANSFUSION STATUS OK TO TRANSFUSE - ??? UNIT NUMBER [id number] - ??? BLOOD COMPONENT TYPE THAWED PLASMA - ??? STATUS OF UNIT ISSUED - ??? TRANSFUSION STATUS OK TO TRANSFUSE - TYPE & CROSSMATCH (TRANSFUSE NOW) Component Value Range ??? ABO/RH(D) A NEGATIVE - ??? ANTIBODY SCREEN NEGATIVE - ??? CROSSMATCH EXPIRES 05/29/2010 - ??? UNIT NUMBER [id number] - ??? BLOOD COMPONENT TYPE LEUK RED DOOR FRAME BUILDER - ??? STATUS OF UNIT ISSUED - ??? TRANSFUSION STATUS OK TO TRANSFUSE - ??? CROSSMATCH RESULT COMPATIBLE - ??? UNIT NUMBER [id number] - ??? BLOOD COMPONENT TYPE LEUK RED DOOR FRAME BUILDER - ??? STATUS OF UNIT ISSUED - [...] ??? XANTHOCHROMIA Present - ??? RBC, CSF 03288 - (/ul) ??? NUCLEATED CELLS, CSF 318 (*) 0-5 (/ul) ??? PMN'S 80 - (%) ??? LYMPHOCYTES 9 - (%) ??? MONOCYTE/MACROPHAGE 11 - (%) FIRST CSF CELL COUNT & DIFF Component Value Range ??? SOURCE Cerebrospinal Fluid - ??? DESCRIPTION, CSF - Value: Bloody Slight ??? TUBE # 1 - ??? XANTHOCHROMIA Present - ??? RBC, CSF 05025 - (/ul) ??? NUCLEATED CELLS, CSF 352 (*) 0-5 (/ul) ??? LYMPHOCYTES - (%) SPINAL FLUID CULTURE & SMEAR Component Value Range ??? SPECIMEN DESCRIPTION Cerebrospinal Fluid - ??? SPECIAL REQUESTS Unspecified - ??? GRAM SMEAR No Organisms Seen - ??? GRAM SMEAR - Value: Critical value results given to and read back by Mendoza [id number] at 11:58 ??? GRAM SMEAR 05/26 to NT - ??? CULTURE - ??? REPORT STATUS - AEROBIC CULTURE Component Value Range ??? SPECIMEN DESCRIPTION Fluid BACLOFEN PUMP - ??? SPECIAL REQUESTS Unspecified - ??? GRAM SMEAR No PMN'S Seen - ??? GRAM SMEAR No Organisms Seen - ??? GRAM SMEAR - Value: Results Called to Mendoza [id number] at 11:59 on 05/26 by NT ??? CULTURE - ??? REPORT STATUS - PROCEDURE NOTE: 05/26/2010 Current settings: Baclofen Concentration 1,000mcg/ml on simple continuous mode Dose: last dose on 05/22 was 213 Mcg/day. Baclofen dose was decreased by 20% and new pump settings are: 1. Simple continuous mode 2. Dose 170.2 mcg/day [place] vol: 35.9 mL Low reservoir 12/14/2010 Assessment/Plan: [...] n the results section. XR PORTABLE CHEST Discharge 05/31/2010 11:11 Result [...] CDT procedure are in the results section. EKG IP 05/29/2010 12:00 Results for this AM CDT procedure are i n the results section. LIGHT GREEN HOLD Routine 05/28/2010 6:44 Results for this TUBE AM CDT procedure are i n the results section. COMPLETE BLOOD Routine 05/28/2010 6:43 Results fo r this COUNT-NO DIFF AM CDT procedure are in the results section. COMPLETE BLOOD Routine 05/27/2010 6:52 Results fo r this COUNT-NO DIFF AM CDT procedure are in the results section. MR THORACIC SPINE Routine 05/26/2010 4:52 Results for this W/WO IV CONT PM CDT procedure are i n the results section. CREATININE / GFR STAT 05/26/2010 2:51 Results for this PM CDT procedure are i n the results section. XR C-ARM 30-59 Routine 05/26/2010 10:35 Results f or this MINUTES AM CDT procedure are i n the results section. FIRST CSF CELL Routine 05/26/2010 10:30 Results f or this COUNT & DIFF AM CDT procedure are i n the results section. SECOND CSF CELL Routine 05/26/2010 10:30 Results for this COUNT & DIFF AM CDT procedure are i n the results section. SPINAL FLUID Routine 05/26/2010 10:30 Results for this CULTURE & SMEAR AM CDT procedure ar e in the results section. AEROBIC CULTURE Routine 05/26/2010 10:30 Results for this AM CDT procedure are i n the results section. ANAEROBIC CULTURE Routine 05/26/2010 10:30 Result s for this AM CDT procedure are i n the results section. ANAEROBIC CULTURE Routine 05/26/2010 10:30 Result s for this AM CDT procedure are i n the results section. CSF, GLUCOSE Routine 05/26/2010 10:30 Results for this AM CDT procedure are i n the results section. CSF TOTAL PROTEIN Routine 05/26/2010 10:30 Result s for this AM CDT procedure are i n the results section. PLACEMENT LUMBAR AM Admit 05/26/2010 9:51 MENINGITIS DRAIN AM CDT Case Notes LUMBAR PUNCTURE TYPE & CROSSMATCH [...] Maurice Baron MD LAB_1 Performing Organization Address [facility] Phon e Number [address] [address] [place], [place] [phone] XR PORTABLE CHEST 1 VIEW to verify [...] Lucy Colmenares PA-C LAB_1 Performing Organization Address [facility] Phon e Number [address] [address] [place], [place] [phone] (ABNORMAL) HEMOGRAM/PLTS (05/30/2010 12:28 PM CDT) athologist [facility] WBC 7.0 4.0 - 11.0 [facility] k/ul [...] Organization Address City/State/ZIP Code Phon e Number [address] [address] [place], [place] [phone] (ABNORMAL) BASIC METABOLIC PANEL (05/30/2010 12:28 PM CDT) athologist [facility] BUN 19 7 - 20 [facility] mg/dl [...] Maurice Baron MD LAB_1 Performing Organization Address City/[facility]/ZIP [facility] Phon e Number [address] [address] [place], [place] [phone] EKG IP (05/29/2010 12:00 AM CDT) Specimen (Source) Anatomical Location Collection Method / Collectio n Time Received Time / Laterality Volume 05/29/2010 Narrative This result has an attachment that is no t available. Transcriptions [facility], PROVIDER - 05/29/2010 12:00 AM CDT Provider [facility] EKG LIGHT GREEN HOLD TUBE (05/28/2010 6:44 AM CDT) [facility] Method Time Signature Light Green Held in [facility] Hold Tub Chemistry sample rack for 7 days Specimen Anatomical Collection Method Collection Time Receive d Time (Source) Location / / Volume Laterality 05/28/2010 6:44 AM 0 7:01 CDT AM CDT Maurice Baron MD LAB_1 Performing Organization Address [facility]/ZIP Code Phon e Number [address] [address] [place], [place] [phone] (ABNORMAL) HEMOGRAM/PLTS (05/28/2010 6:43 AM CDT) P [...] Yomi Miller MD LAB_1 Performing Organization Address [facility]/ZIP [facility] Phon e Number [address] [address] [place], [place] [phone] (ABNORMAL) Hemogram with Platelets (05/27/2010 6:52 AM [...] Maurice Baron MD LAB_1 Performing Organization Address [facility] Phon e Number [address] [address] [place], [place] [phone] MR THORACIC SPINE WITH/WITHOUT CONTRAST (05/26/2010 4:52 PM CDT) Anatomical Region Laterality Modality Spine, T-Spine, L-Spine, C-Spine, Skeletal Magnetic Resonance Specimen (Source) Anatomical Collection Method Collection Time Re ceived Time Location / / Volume Laterality 05/26/2010 4:52 PM CDT Narrative 05/26/2010 5:18 PM CDT [facility] IMAGING SPARTA THORACIC SPINE MRI ? 05/26/2010 INDICATION: Evaluate [...] nal. Procedure Note Julien Anna - 05/27/2010 [facility] THORACIC SPINE MRI 05/26/2010 INDICATION: Evaluate [...] Organization Address City/State/ZIP Code Phon e Number [address] [address] [place], [place] [phone] XR C-ARM 30-59 MIN (05/26/2010 10:35 AM [...] PUMP Special Unspecified [facility] Requests Aerobic Cult [id number] REG[facility] Number Culture No Anaerobes [facility] Isolated Report Status Final [facility] 06/02/2010 Specimen Anatomical Collection Method Collection Time Receive d Time (Source) Location / / Volume Laterality 05/26/2010 10:30 05/26/2010 AM CDT 11:23 AM CDT Noble Singh MD LAB_1 Performing Organization Address [facility]/ZIP [facility] Phon e Number [address] [address] [place], [place] [phone] AEROBIC CULTURE (05/26/2010 10:30 AM CDT) [facility] Signature Specimen Fluid BACLOFEN [facility] Description PUMP Special Unspecified [facility] Requests Gram Smear No PMN'S Seen REGIONS Gram Smear No Organisms REGIONS Seen Gram Smear Results Called REGIONS to Mendoza [id number] at 11:59 on 05/26 by NT Culture No Growth After REGIONS 3 Days Report Status Final [facility] 05/29/2010 Specimen Anatomical Collection Method Collection Time Receive d Time (Source) Location / / Volume Laterality 05/26/2010 10:30 05/26/2010 AM CDT 11:23 AM CDT Noble Singh MD LAB_1 Performing Organization Address City/[facility] Phon e Number [address] [address] [place], [place] [phone] ANAEROBIC CULTURE (05/26/2010 10:30 AM CDT) Component Value Ref Test Analysis Performed At [employer] [employer] Range Method Time Signature Specimen Cerebrospinal REGIONS Description Fluid Special Unspecified [facility] Requests Aerobic Cult [id number] REGIONS Number Culture No Anaerobes [facility] Isolated Report Status Final 06/02/2010 [facility] Specimen Anatomical Collection Method Collection Time Receive d Time (Source) Location / / Volume Laterality 05/26/2010 10:30 05/26/2010 AM CDT 11:18 AM CDT Noble Singh MD LAB_1 Performing Organization Address City/[facility]/ZIP [facility] Phon e Number [address] [address] [place], [place] [phone] SPINAL FLUID CULTURE & SMEAR (05/26/2010 10:30 AM CDT) Component Value Ref Test Analysis [facility] Range Method Time Signature Specimen Cerebrospinal REGIONS Description Fluid Special Unspecified REG[facility] Requests Gram Smear No Organisms REGIONS Seen Gram Smear Critical value REGIONS results given to and read back by Kelly ORLinda Clifford2 at 11:58 Gram Smear 05/26 to NT REGIONS Culture No Growth After REGIONS 3 Days Report Status Final 05/29/2010 REGIONS Specimen Anatomical Collection Method Collection Time Receive d Time (Source) Location / / Volume Laterality 05/26/2010 10:30 05/26/2010 AM CDT 11:18 AM CDT Noble Singh MD LAB_1 Performing Organization Address [facility] Phon e Number [address] [address] [place], [place] [phone] (ABNORMAL) FIRST CSF CELL COUNT & DIFF (05/26/2010 10:30 AM CDT) Component Value Ref Test Analysis Performed At [facility] [employer] Method Time Signature Source Cerebrospinal REGIONS Fluid Description, CSF Bloody REGIONS Slight Tube # 1 REGIONS Xanthochromia Present REGIONS RBC, CSF 01410 /ul REGIONS Nucleated Cells, 352 (H) 0 - 5 REGIONS CSF /ul PMN's 65 % REGIONS Lymphocytes 15 % REGIONS Monocyte/Macroph 20 % REGIONS age Specimen Anatomical Collection Method Collection Time Receive d Time (Source) Location / / Volume Laterality 05/26/2010 10:30 05/26/2010 AM CDT 11:11 AM CDT Noble Singh MD LAB_1 Performing Organization Address [facility] Phon e Number [address] [address] [place], [place] [phone] (ABNORMAL) SECOND CSF CELL COUNT & DIFF (05/26/2010 10:30 AM CDT) Component Value Ref Test Analysis Performed At [facility] [employer] Range Method Time Signature Source Cerebrospinal REGIONS Fluid Description, CSF Bloody REGIONS Slight Tube # 4 REGIONS Xanthochromia Present REGIONS RBC, CSF 00070 /ul REGIONS Nucleated Cells, 318 (H) 0 - 5 REGIONS CSF /ul PMN's 80 % REG[facility] Lymphocytes 9 % REG[facility] Monocyte/Macroph 11 % REGIONS age Specimen Anatomical Collection Method Collection Time Receive d Time (Source) Location / / Volume Laterality 05/26/2010 10:30 05/26/2010 AM CDT 11:03 AM CDT Noble Singh MD LAB_1 Performing Organization Address City/[facility] Phon e Number [address] [address] [place], [place] [phone] (ABNORMAL) CSF TOTAL PROTEIN (05/26/2010 10:30 AM CDT) [facility] Method Time Signature Source Cerebrospinal REGIONS Fluid Total 248 (H) 12 - 60 REG[facility] Protein, CSF mg/dl Comment: The use if this assay to monitor or diag nose patients has not been approved for this specimen type by the FDA or trial justice of this assay. Specimen Anatomical Collection Method Collection Time Receive d Time (Source) Location / / Volume Laterality 05/26/2010 10:30 05/26/2010 AM CDT 10:51 AM CDT Noble Singh MD LAB_1 Performing Organization Address City/[facility] Phon e Number [address] [address] [place], [place] [phone] (ABNORMAL) CSF, GLUCOSE (05/26/2010 10:30 AM CDT) [facility] Method Time Signature Source Cerebrospinal REGIONS Fluid Glucose, CSF 25 (L) 40 - 70 REGIONS mg/dl Specimen Anatomical Collection Method Collection Time Receive d Time (Source) Location / / Volume Laterality 05/26/2010 10:30 05/26/2010 AM CDT 10:51 AM CDT Noble Singh MD LAB_1 Performing Organization Address City/[facility] Phon e Number [address] [address] [place], [place] [phone] TYPE & CROSSMATCH (TRANSFUSE NOW) (05/26/2010 9:30 AM CDT) [facility] Method Time Signature ABO/RH(D) A NEGATIVE REG[facility] Antibody Screen NEGATIVE REGIONS Crossmatch 05/29/2010 REGIONS Expires Unit Number [id number] REGIONS Blood Component LEUK RED DOOR FRAME BUILDER REGIONS Type Status of Unit Issued, final REGIONS Transfusion OK TO REGIONS Status TRANSFUSE Crossmatch COMPATIBLE REGIONS Result Unit Number [id number] REGIONS Blood Component LEUK RED DOOR FRAME BUILDER REGIONS Type Status of Unit Issued, final REGIONS Transfusion OK TO REGIONS Status TRANSFUSE Crossmatch COMPATIBLE REGIONS Result Unit Number [id number] REG[facility] Blood Component LEUK RED DOOR FRAME BUILDER REGIONS Type Status of Unit Issued, final REGIONS Transfusion OK TO REGIONS Status TRANSFUSE Crossmatch COMPATIBLE REGIONS Result Unit Number [id number] REG[facility] Blood Component LEUK RED DOOR FRAME BUILDER REGIONS Type Status of Unit Issued, final REGIONS Transfusion OK TO REGIONS Status TRANSFUSE Crossmatch COMPATIBLE REGIONS Result Specimen Anatomical Collection Method Collection Time Receive d Time (Source) Location / / Volume Laterality 05/26/2010 9:30 AM 0 9:34 CDT AM CDT Maurice Baron MD LAB_1 Performing Organization Address City/[facility] Phon e Number [address] [address] [place], [place] [phone] LAB TO PREPARE THAWED PLASMA (05/26/2010 9:29 AM CDT) [facility] gist Method Time Signature Units Ordered 2 REGIONS Unit Number [id number] REGIONS Blood Component THAWED PLASMA REGIONS Type Status of Unit Issued, final REGIONS Transfusion OK TO REGIONS Status TRANSFUSE Unit Number [id number] REGIONS Blood Component THAWED PLASMA REGIONS Type Status of Unit Issued, final REGIONS Transfusion OK TO REGIONS Status TRANSFUSE Specimen Anatomical Collection Method Collection Time Receive d Time (Source) Location / / Volume Laterality 05/26/2010 9:29 AM 0 9:41 CDT AM CDT Maurice Baron MD LAB_1 Performing Organization Address [facility] Phon e Number [address] [address] [place], [place] [phone] (ABNORMAL) aPTT (Activated Partial Thromboplastin Time) (05/26/2010 8:12 AM CDT) P athologist Signature PTT 42.4 (H) 24.0 - 37.0 REGIONS sec Specimen Anatomical Collection Method Collection Time Receive d Time (Source) Location / / Volume Laterality 05/26/2010 8:12 AM 0 8:32 CDT AM CDT Maurice Baron MD LAB_1 Performing Organization Address City/[facility]/ZIP [facility] Phon e Number [address] [address] [place], [place] [phone] (ABNORMAL) INR/Protime (PT/INR) (05/26/2010 8:12 AM CDT) P athologist Signature Protime 20.1 (H) 12.0 - 14.5 REGIONS sec INR 1.7 REGIONS Specimen Anatomical Collection Method Collection Time Receive d Time (Source) Location / / Volume Laterality 05/26/2010 8:12 AM 0 8:32 CDT AM CDT Mauirce Baron MD LAB_1 Performing Organization Address City/State/ZIP Code Phon e Number [facility] [address] [place] [address] [place], [place] [phone] documented in this encounter Visit Diagnoses Diagnosis 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, unspecified site Spasticity Abnormal involuntary movements Neurogenic bladder Neurogenic bladder, NOS Initial Assessments - Jennyfer Bailey RDN, LD - 05/31/2010 3:56 PM CDT [facility] Nutrition Initial Limited Assessment and Care Plan Reason for Assessing Patient: LOS Assessment: Patient was well nourished [employer] and is now meeting estimated needs by [...] within 6 days Report completed by: Jennyfer Bailey, NIELS, LD, CSSD If you have questions, page [phone] Weekend pager: [phone] Nutrition Assessment Data Current Nutrition/Diet Order: Diet: Regular diet. Current Intake/Digestive Problems: no problems noted Dietary Intake Since Admission: consuming 75-100% of documented meals. Food and Nutrition-Related History: Diet History: Regular diet Intake/Digestive Problems [employer]: no problems noted Pertinent Biochemical Data, Medical [...] Buckner, PT - 05/31/2010 12:07 PM CDT [facility] Physical Therapy Evaluation Patient Seen: bedside Diagnosis: Encounter Diagnoses Code Name Primary? 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 27434 CAREPLAN: BACLOFEN ??? 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 Corrie Buckner, PT Phone number is [phone] Pager: Pager number is: [phone] --- End of Report --- Initial Assessments - Cheli Ruiz RN - 05/26/2010 1:50 PM CDT [facility] Med-Surg / ICU / Rehab [...] Assist: (not recorded) Functional Screening: (not recorded) PSYCHOSOCIAL/SPIRITUAL/SCIENTOLOGIST/CULTURAL/ABUSE/CHEMICAL Suicide Health Inventory Do you currently have [...] issues for which support from the hospital anodizer might be helpful to patient and/or family? [...] Nakita Dwyer RN)1625 (Given - Provider: Priti Hickey, VALERIE) for 90 Minutes, IV, Q12H (NON-STND), Fir st dose on Sat05/30/10 at 1600, Until Discontinued vancomycin (aka VANCOCIN) 2,500 mg in NaCl 0.9 % 500 m L IV PIGGYBACK (CANCELED) 0810 (Given - Provider: Letty Hickey RN) for 120 Minutes, IV, Q24H, First dose on [place] 06/01/10 at 0800, Until Discontinued warfarin (aka COUMADIN) [...]
--- OUTSIDE RECORDS SUMMARY | 2022-06-20 02:33 | XMS_ITS | Encounter Summary ---
:1945 [facility] Address [address] [address] Care Team Providers Name Role Phone Unavailable Primary Care Provider Unavailable Encounter Details Date Type Department Care Team Description 05/26/2010 Correspondence [facility] Radiology Radiology, MRI SAFETY SHEET [address] [facility] [place] [address] Social History Tobacco Use Types Packs/Day Years Used Date Smoking Tobacco: Never Alcohol Use Standard Drinks/Week Comments No 0 (1 standard drink = 0.6 oz pure alcoho l) Sex Assigned at Date Recorded Male 08/06/2021 5:59 PM CDT documented as of this encounter Progress Notes [facility], PROVIDER - 06/01/2010 5:11 PM CDT documented in this encounter Plan of Treatment Not on filedocumented as of this encounter Visit Diagnoses Not on filedocumented in this encounter
--- OUTSIDE RECORDS SUMMARY | 2022-06-20 02:33 | XMS_ITS | Encounter Summary ---
:1945 Author Organization [facility] Address [address] [place] [address] Care Team Providers Name Role Phone Unassigned, Provider Primary Care Provider Unavailable Encounter Details Date Type Department Care Team Description 05/17/2010 Orders Only External to Unknown, Physici an [address] [place], [place] [phone] (Wo rk) Social History Tobacco Use Types Packs/Day Years Used Date Smoking Tobacco: Never Alcohol Use Standard Drinks/Week Comments No 0 (1 standard drink = 0.6 oz pure alcoho l) Sex Assigned at Date Recorded Male 08/06/2021 5:59 PM CDT documented as of this encounter Procedure Notes [facility], Provider - 05/17/2010 12:00 AM CDTAssociated Order(s): SCANNED LAB documented in this encounter Plan of Treatment Not on filedocumented as of this encounter Procedures Procedure Name Priority Date/Time Associated Diagnosis Comme nts SCANNED LAB 05/17/2010 12:00 AM Results for this CDT procedure are i n the results section . documented in this encounter Results SCANNED LAB (05/17/2010 12:00 AM CDT) Specimen (Source) Anatomical Location Collection Method / Collectio n Time Received Time / Laterality Volume 05/17/2010 Narrative 05/17/2010 12:00 AM CDT This result has an attachment that is no t available. Ordered by an unspecified provider. Transcriptions [facility], Provider - 05/17 12:00 AM CDT Physician Unknown LAB_1 documented in this encounter Visit Diagnoses Not on filedocumented in this encounter Care Teams Christmas Bell Ringer Relationship Specialty Start Date End Date Unassigned, Provider PCP - General 11/28/01 05/21/10 [address] [place] [address] documented as of this encounter
--- OUTSIDE RECORDS SUMMARY | 2022-06-20 02:34 | XMS_ITS | Encounter Summary ---
:1945 Author Organization [facility] Address [address] [place] [address] Care Team Providers Name Role Phone Unassigned, Provider Primary Care Provider Unavailable Reason for Visit Reason Comments HEADACHE--ED recent back surgery Encounter Details Date Type Department Care Team Description 04/30/2010 - [place] [address] Zelalem Dick MD [address] [place] [address] Pseudomeningocele (Primary Dx); 05/13/[address] [place] [address] Unassigned, Provider [address] [place] [address] Headache; [place], [place] Trevin Salgado MD [address] [place] [address] Fever; [id number] Maurice Baron MD [address] [place] [address] Muscle Spasticity; [phone] Meningitis; Ependymoma; Other Symptoms Referable to Back; CAREPLAN: BACLO FEN; Neurogenic Bart l; DVT (Deep Venou s Thrombosis); Neurogenic Blad swapnil; Polyuria; Hypotension Social History Tobacco Use Types Packs/Day Years Used Date Smoking Tobacco: Never Alcohol Use Standard Drinks/Week Comments No 0 (1 standard drink = 0.6 oz pure alcoho l) Sex Assigned at Date Recorded Male 08/06/2021 5:59 PM CDT documented as of this encounter Last Filed Vital Signs Vital Sign Reading Time Taken Comments Blood Pressure 152/87 05/13/2010 8:27 PM CDT Pulse 98 05/13/2010 8:27 PM CDT Temperature 36.9 ??C (98.5 ??F) 05/13/2010 8:27 PM CDT Respiratory Rate 16 05/13/2010 8:27 PM CDT Oxygen Saturation 97% 05/13/2010 8:27 PM CDT Inhaled Oxygen Concentration - - Weight 117 kg (257 lb 14.4 oz) 05/13/2010 6:57 AM CDT Height 177.8 cm (5' 10) 05/11/2010 12:36 PM CDT Body Mass Index 37 05/11/2010 12:36 PM CDT documented in this encounter Discharge Summaries Geetha Osuna Bryn - 05/13/2010 4:08 PM CDT [facility] Discharge Summary Report (MD) Admit Date/Time: 04/30/2010 1:25 AM Discharge Date: 05/13/10 Service: Neurosurgery Staff MD: Dr. Maurice Baron Admitting Diagnosis: Encounter Diagnoses Code Name Primary? 453.40U DVT (Deep Venous Thrombosis) Yes ??? 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 784.0 Headache ??? 780.60BQ Fever ??? 728.85T Muscle Spasticity ??? 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 355[address] CAREPLAN: BACLOFEN ??? 564.81 Neurogenic Bowel ??? 596.54AL Neurogenic Bladder ??? 788.42 Polyuria ??? 458.9Q Hypotension Operations/Procedures: 05/09 REVISION OF BACLOFEN PUMP CATHETER Complications: None Discharge Diagnosis: Same as above Brief History and Pertinent Objective Findings: Mr. Cullen is a 64 yo male with hx of ependymoma ofthoracic spine T5 level, with recent recurrence of tumor, s/p resection of this T5 thoracic ependymoma on 04/11/[address] Baron. He was discharged home on 04/20/10 and was doing well at the time. A fewdays later patient reports fever to 101 - on 04/24/2010 he was seen at ER in [place] & was treated with IM ceftriaxone & azithromycin for possible pneumonia. He felt slightly better for 2 daysbut then had fever again on 04/28, this time with significant chills & drenching sweats. He was admitted to [facility] on 04/29 for the fever. He also c/o severe headache since 04/28. He also has a baclofen pump in situ. Hospital Course: Mr. Cullen was admitted to [facility] on 04/30/2010. See above hx for details. He has been followed closely by ID, Medicine, and Nephrology while an inpatient. He was taken to the OR 05/09 for revision of baclofen catheter and pump. PM&R has been assisting with management of Baclofen. His incision has been cleaned with Betadine and the dressing changed daily. Per ID recs, hewas on IV anx until the last dose on 05/12, he will dc home on oral antibiotics (Bactrim). His thoracic incision is intact, his retention sutures were removed by Dr. Baron prior to discharge. His pain is controlled with oral pain medication. He is being slowly weaned off his oral Baclofen. Vital signs h ave been stable since surgery. Discharge Disposition: Home with [facility], home PT Diet: Resume pre-op diet. Increase fiber and fluids to avoid constipation. Activity: No lifting greater than 10 pounds. No repetitive bending, twisting. No driving until seen in follow up in the neurosurgery clinic. No tub bathing, no hot tubs, and no swimming for 30 days post-operatively. Keep incision dry. Followup: 05/[address] Maurice Baron [facility] Transfer Orders to Home Health Care Patient Name: Jie Cullen Date of : 1945 Allergies: Zaroxolyn and Oxycodone Immunizations: Most Recent Immunizations Administered Date(s) Administered ??? Flu Vac (3+ yrs) 10/06/2009 ??? H1n1 Miv Csl 3+ Yr (Injected) 12/06/2009 ??? Pneumococcal, PPSV23 10/06/2009 Current Attending Provider: Maurice Baron MD Discharge Procedure Orders When to Resume Normal Activities: Order Comments: No lifting greater than 10 pounds. No repetitive bending, twisting. No tub bathing, no hot tubs, and no swimming for 30 days post- operatively. Keep incision dry. Discharge Instructions Order Comments: Monitor incision daily for signs of infection (redness, drainage, warmth). Call the Neurosurgery Clinic at [phone] with any incisional changes. Keep incision dry. Leave incision covered, you may need to change the dressing more than once daily, depending on the amount of drainage. Cover with waterproof dressing in the shower. De La Cruz (Urinary Catheter) Call the doctor for these danger signs Order Comments: Any changes in your incision: redness, swelling, drainage, tenderness, or fever greater than 100.5. Any changes in sensation or decrease in strength to your extremeties. Neurosurgery clinic [phone]. Diet Order Comments: Resume pre-op diet. Increase fiber and fluids to avoid constipation. Clinic Referral Order Comments: CLINIC: [facility] Center: Neurosurgery; [phone]; [address] [place] [address] DOCTORS NAME: Dr. Maurice Baron WHEN TO BE SEEN: On (date) 05/22 at 10:40 REASON FOR APPOINTMENT: MD follow up Lab Tests Order Comments: BASIC METALBOLIC PANEL (NA, K, Cl, CO2, Gluc, BUN, Creat, CA) , CBC-NO DIFF and INR/PROTIME . SCHEDULING INSTRUCTIONS (date/time): 05/15/2010. PLEASE SEND RESULTS TO Primary Care Physician Clinic Referral Order Comments: FOLLOW UP WITH PRIMARY CARE PHYSICIAN IN 1 WEEK DIAGNOSIS: post-hospitalization, INR monitoringPlease take ALL your medications with you to review with your doctor. PHYSICAL THERAPY (PT) REFERRAL Order Comments: EVALUATE AND TREAT Physical Therapy (PT) Referral Order Comments: EVALUATE AND TREAT Admit to Home Care Order Comments: AGENCY NAME: [facility] home care Discharge Medication Orders Current Discharge Medication List START taking these medications !! cyclobenzaprine (AKA FLEXERIL) 10 MG tablet Take 1 Tab by mouth three times a day as needed for Muscle Spasms. Qty: 60 Tab Refills: 0 enoxaparin (AKA LOVENOX) 150 MG/ML injection Inject 0.8 mL subcutaneously every 12 hours for 4 days. Qty: 6.4 mL Refills: 0 hydrocodone-acetaminophen (AKA VICODIN,LORTAB) 5-500 MG tablet Take 1-2 Tabs by mouth every 4 hours as needed for Pain. Qty: 40 Tab Refills: 0 !! - Potential duplicate medications found. Please discuss with provider. CONTINUE these medications which have CHANGED baclofen (AKA LIORESAL) 10 MG tablet Take 1 Tab by mouth. Wean schedule: Take 10mg three times a day for 6 doses, then 10mg twice a day for 4 doses, then 10mg daily for 2 days, then 10mg twice daily NEEDED Qty: 90 Tab Refills: 2 CONTINUE these medications which have NOT CHANGED acetaminophen (AKA TYLENOL) 325 MG tablet Take 1-2 Tabs by mouth every 4 hours as needed for Pain. Qty: 120 Tab Refills: 1 atorvastatin (LIPITOR) 40 MG tablet Take 1 Tab by mouth daily. BACLOFEN IT 220 mcg by Intrathecal route daily. citalopram (AKA CELEXA) 40 MG tablet Take 40 mg by mouth daily. !! cyclobenzaprine (AKA FLEXERIL) 10 MG tablet Take 10 mg by mouth two times a day. docusate sodium (AKA ENEMEEZ) 283 MG enema Insert 5 mL rectally daily as needed. PT. USES ENEMA EVERY OTHER DAY. Qty: 15 Each Refills: 0 ferrous sulfate 325 (65 FE) MG tablet Take 1 Tab by mouth daily with breakfast. Qty: 60 Tab Refills: 0 Gabapentin (AKA NEURONTIN) 100 MG tablet Take 2 Tabs by mouth three times a day. lactulose 10 GM/15ML solution Take 30 mL by mouth two times a day as needed. For constipation Qty: 240 mL Refills: 0 LORazepam (AKA ATIVAN) 0.5 MG tablet Take 2 Tabs by mouth three times a day. OMEGA-3 FATTY ACIDS OR Take 1 Cap by mouth daily. povidone-iodine (AKA BETADINE) 10 % external solution Apply topically two times a day. Qty: 15 mL Refills: 1 senna (AKA SENOKOT) 8.6 MG tablet Take [...] directed. Qty: 30 Tab Refills: 11 Comments: INR range of 2.0-3.0 !! - Potential duplicate medications found. Please discuss with provider. Geetha Osuna RN Neurosurgery Nurse Clinician [phone] I, Geetha Osuna RN, am serving as a scribe to document services personally performed by Dr. Maurice Baron. All data has been reviewed by Dr. Maurice Baron. --- End of Report --- Maurice Baron - 05/13/2010 4:08 PM CDT I have examined the patient and reviewed the plan of care and agree with the previous note. Maurice Baron MD 05/24/2010, 11:18 AM documented in this encounter Discharge Instructions Discharge InstructionsDulce Palafox - 05/13/2010 8:54 PM CDT Images from the original note were not included. [address] [place] [address] Discharge Instructions for: Jie Cullen Thank you for choosing [facility] as your hospital. A copy of your discharge instructions has been given to you. Please read the instructions carefully. The staff will go over this information with you and answer your questions. General Information Allergies: Zaroxolyn and Oxycodone Phone number: Telephone Information: Discharging physician: Dr Manzanares Discharge date: 05/13/2010 Primary Care Provider Primary care provider: Provider Unassigned Discharge Disposition HOME Immunization Most Recent Immunizations Administered Date(s) Administered ??? Flu Vac (3+ yrs) 10/06/2009 ??? H1n1 Miv Csl 3+ Yr (Injected) 12/06/2009 ??? Pneumococcal, PPSV23 10/06/2009 Immunization Documentation There is documentation in the Immunization/Injection section and/or the MAR (NOT in the notes) that the patient: Pneumonia:did not meet the criteria to receive pneumococcal vaccine. Influenza:did not meet the criteria to receive the influenza (seasonal flu) vaccine. Home Medications Carefully read the medication handouts you are given. They contain information about the purpose andside effects of your medications. Talk to your doctor before taking other medications. For additional information about your medications, visit this [employer] website, [email or web address]. Current Discharge Medication List START taking these medications enoxaparin (AKA LOVENOX) 150 MG/ML injection Inject 0.8 mL subcutaneously every 12 hours for 4 days. Qty: 6.4 mL Refills: 0 hydrocodone-acetaminophen (AKA VICODIN,LORTAB) 5-500 MG tablet Take 1-2 Tabs by mouth every 4 hours as needed for Pain. Qty: 40 Tab Refills: 0 sulfamethoxazole-trimethoprim (AKA BACTRIM DS) 800-160 MG tablet Take 1 Tab by mouth two times a day for 30 days. Qty: 60 Tab Refills: 0 CONTINUE these medications which have CHANGED baclofen (AKA LIORESAL) 10 MG tablet Take 1 Tab by mouth. Wean schedule: Take 10mg three times a day for 6 doses, then 10mg twice a day for 4 doses, then 10mg daily for 2 days, then 10mg twice daily NEEDED Qty: 90 Tab Refills: 2 cyclobenzaprine (AKA FLEXERIL) 10 MG tablet Take 1 Tab by mouth three times a day as needed for Muscle Spasms. Qty: 60 Tab Refills: 0 CONTINUE these medications which have NOT CHANGED acetaminophen (AKA TYLENOL) 325 MG tablet Take 1-2 Tabs by mouth every 4 hours as needed for Pain. Qty: 120 Tab Refills: 1 atorvastatin (LIPITOR) 40 MG tablet Take 1 Tab by mouth daily. BACLOFEN IT 220 mcg by Intrathecal route daily. citalopram (AKA CELEXA) 40 MG tablet Take 40 mg by mouth daily. docusate sodium (AKA ENEMEEZ) 283 MG enema Insert 5 mL rectally daily as needed. PT. USES ENEMA EVERY OTHER DAY. Qty: 15 Each Refills: 0 ferrous sulfate 325 (65 FE) MG tablet Take 1 Tab by mouth daily with breakfast. Qty: 60 Tab Refills: 0 Gabapentin (AKA NEURONTIN) 100 MG tablet Take 2 Tabs by mouth three times a day. lactulose 10 GM/15ML solution Take 30 mL by mouth two times a day as needed. For constipation Qty: 240 mL Refills: 0 LORazepam (AKA ATIVAN) 0.5 MG tablet Take 2 Tabs by mouth three times a day. OMEGA-3 FATTY ACIDS OR Take 1 Cap by mouth daily. povidone-iodine (AKA BETADINE) 10 % external solution Apply topically two times a day. Qty: 15 mL Refills: 1 senna (AKA SENOKOT) 8.6 MG tablet Take [...] directed. Qty: 30 Tab Refills: 11 Comments: INR range of 2.0-3.0 STOP taking these medications azithromycin (ZITHROMAX) 250 MG tablet Comments: Reason for Stopping: Designated Pharmacy for Discharge Medications: [facility] If you were taking a medication before admission and you do not see it on the list of home medications, please contact your primary care doctor. Additional Orders When to Resume Normal Activities: No lifting greater than 10 pounds. No repetitive bending, twisting. No tub bathing, no hot tubs, andno swimming for 30 days post-operatively. Keep incision dry. Discharge Instructions Monitor incision daily for signs of infection (redness, drainage, warmth). Call the Neurosurgery Clinic at [phone] with any incisional changes. Keep incision dry. Leave incision covered, you may need to change the dressing more than once daily, depending on the amount of drainage. Cover with waterproof dressing in the shower. De La Cruz (Urinary Catheter) Call the doctor for these danger signs Any changes in your incision: redness, swelling, drainage, tenderness, or fever greater than 100.5. Any changes in sensation or decrease in strength to your extremeties. Neurosurgery clinic [phone]. Diet Resume pre-op diet. Increase fiber and fluids to avoid constipation. Clinic Referral CLINIC: [facility] Center: Neurosurgery; [phone]; [address] [place] [address] DOCTORS NAME: Dr. Maurice Baron WHEN TO BE SEEN: On (date) 05/22 at 10:40 REASON FOR APPOINTMENT: MD follow up Lab Tests BASIC METALBOLIC PANEL (NA, K, Cl, CO2, Gluc, BUN, Creat, CA) , CBC-NO DIFF and INR/PROTIME . SCHEDULING INSTRUCTIONS (date/time): 05/15/2010. PLEASE SEND RESULTS TO Primary Care Physician Clinic Referral FOLLOW UP WITH PRIMARY CARE PHYSICIAN IN 1 WEEK DIAGNOSIS: post-hospitalization, INR monitoringPlease take ALL your medications with you to review with your doctor. PHYSICAL THERAPY (PT) REFERRAL EVALUATE AND TREAT Physical Therapy (PT) Referral EVALUATE AND TREAT Admit to Home Care [facility]ENCY [facility] Care Instructions Patient Teaching Handouts NONE Valuables/Medications Disposition of Money: Not Applicable Disposition of Medications: (not recorded) Patient and/or family verified that all valuables have been returned: No Patient and/or family verified that all valuables removed from room safe: No Danger Signs Call your clinic or seek medical help if you have any sudden change in your condition or if you haveany of the following: chest pain difficulty breathing pain not relieved with usual methods shortness of breath SIGNS OF WOUND INFECTION: drainage from wound, redness or streak(s) from wound, increasing soreness around wound and fever Community Resources NONE Contact [address] [address] For questions about your discharge instructions call the nursing unit : [facility] [phone] Emergency & Urgently Needed Care: For emergencies call 911 and/or get medical help right away. If you are a [facility] member and have medical needs after clinic hours you may call the CareLineat [phone] or . All medical devices (telemetry/IV/etc) unless otherwise ordered, have been removed before discharge. Smoking and second-hand smoke exposure: Smoking damages blood vessels, reduces the oxygen in your blood and makes your heart beat too fast. If you smoke you should quit. Everyone should avoid second- hand smoke. If you would like further assistance after your discharge, please contact [phone] or visit www.[employer] can offer further [...] weight will also be followed by the [facility] when you go in for your treatment. [...] understand my discharge instructions: Jie Cullen (or Box Toe Stitcher) documented in this encounter Medications at Time of Discharge Medication Sig Dispensed Refills Start Date End Date enoxaparin (AKA Inject 0.8 mL 6.4 mL 0 05/13/20102009 LOVENOX) 150 MG/ML subcutaneously every injection 12 hours for 4 days. acetaminophen (AKA Take 1-2 Tabs by mouth 120 Tab 1 04/1911/06/2010 TYLENOL) 325 MG tablet every 4 hours as needed for Pain. atorvastatin (LIPITOR) Take 1 Tab by mouth 0 10/21/2014 40 MG tablet daily. baclofen (AKA LIORESAL) Take 1 Tab by mouth. Wean schedule: 90 Tab 2 05/12/2010 06/01/2010 10 MG tablet Take 10mg three times a day for 6 doses, then 10mg twice a day for 4 doses, then 10mg daily for 2 days, then 10mg twice daily NEEDED BACLOFEN IT 220 mcg by Intrathecal 0 0 06/01/2010 route daily. citalopram (AKA CELEXA) Take 40 mg by mouth 0 10/02/2011 40 MG tablet daily. cyclobenzaprine (AKA Take 1 Tab by mouth 60 Tab 0 200902/28/2011 FLEXERIL) 10 MG tablet three times a day as needed for Muscle Spasms. docusate sodium (AKA Insert 5 mL rectally 15 Each 0 04/2103/15/2011 ENEMEEZ) 283 MG enema daily as needed. PT. USES ENEMA EVERY OTHER DAY. ferrous sulfate 325 (65 Take 1 Tab by mouth 60 Tab 0 06/201007/27/2010 FE) MG tablet daily with breakfast. Gabapentin (AKA Take 2 Tabs by mouth 0 07/27/2010 NEURONTIN) 100 MG three times a day. tablet hydrocodone-acetaminoph Take 1-2 Tabs by mouth 40 Tab 0 05/13/2010 05/22/2010 en (AKA VICODIN,LORTAB) every 4 hours as 5-500 MG tablet needed for Pain. lactulose 10 GM/15ML Take 30 mL by mouth 240 mL 0 200907/27/2010 solution two times a day as needed. For constipation LORazepam (AKA ATIVAN) Take 2 Tabs by mouth 0 09/17/2014 0.5 MG tablet three times a day. OMEGA-3 FATTY ACIDS OR Take 1 Cap by mouth 0 07/27/2010 daily. povidone-iodine (AKA Apply topically two 15 mL 1 200906/01/2010 BETADINE) 10 % external times a day. solution senna (AKA SENOKOT) 8.6 Take 2 Tabs by mouth 30 Tab 0 02/28/2011 MG tablet daily. USES 3 TABS IN THE AM & 2 TABS AT HS EVERY OTHER DAY. sulfamethoxazole-trimet Take 1 Tab by mouth 60 Tab 0 01/201005/16/2010 hoprim (AKA BACTRIM DS) two times a day for 30 800-160 MG tablet days. TRIMETHOPRIM OR Take 100 mg by mouth 0 10/20/2014 daily. warfarin (AKA COUMADIN) Take 1 Tab by mouth 30 Tab 11 07/201005/31/2010 5 MG tablet daily. Adjust dose based on INR result as directed. documented as of this encounter Progress Notes Dulce Palafox - 05/13/2010 10:02 PM CDT [facility] Discharge Note - Nursing Admission Date/Time: 04/30/2010 1:25 AM Attending MD: Maurice Baron Patient discharged: to Home. Discharge Date: 05/13/2010 Discharge Time: 2144 Patient accompanied by: self and spouse. Transported by: Wheelchair Valuables were taken [...] with patient/caregiver Patients general condition on discharge: Patient stable. Denies pain. Dressing are all clean, dry and intact. No need for IV antibiotics, sent home with bactrim prescription. All medical devices (telemetry/IV/etc) unless otherwise ordered, have been removed and stored: Yes Report Completed by: Dulce Palafox RN --- End of Report --- Lázaro Lr - 05/13/2010 8:16 PM CDT [facility]. ID Progress Note Date of service: 05/13/10 Diagnosis: Spinal ependymoma, paraplegia and baclofen pump placement, s/p thoracic spinal ependymomarepair (04/11), headache and fevers, possible bacterial meningitis Subjective: Feels overall quite well. No fever, chills, sweats for a long time. Still has a comparatively mild headache, thought (per ) by Dr. Baron to be consistent with a spinal headache from the pump switch. Tolerated the 05/09 pump catheter replacement well. No nausea, emesis, abdominal pain, diarrhea, rash with the antibiotics -- has tolerated the antibiotics well. No new complaints -- very interested in going home this PM. Objective: Patient Vitals in the past 24 hrs: BP Temp Temp src Pulse Resp SpO2 Height Wt - Scale 05/13/10 1725 - 97.8 ??F (36.6 ??C) Oral - - - - - 05/13/10 1529 128/85 mmHg 98.6 ??F (37 ??C) Oral 94 16 96 % - - 05/13/10 1257 128/80 mmHg 98.4 ??F (36.9 ??C) Oral 103 16 99 % - - 05/13/10 0920 89/57 mmHg - - - - - - - 05/13/10 0918 95/59 mmHg 97.8 ??F (36.6 ??C) Oral 110 16 98 % - - 05/13/10 0657 - - - - - - - 116.983 kg (257 lb 14.4 oz) 05/12/10 2300 136/88 mmHg 97.5 ??F (36.4 ??C) Oral 91 16 98 % - - 05/12/10 2038 123/81 mmHg 97.5 ??F (36.4 ??C) Oral 89 16 97 % - - Consistently afebrile (T max 99.0) since 05/05 PM (T max 98.3 past 24 hours). Physical Examination: General: A pleasant, conversant, fully awake, mildly obese, WDWN 65 year old gentleman in NAD lying in bed. Head/Neck: PERRL. EOMI. Sclerae white. No anterior oral lesion. Neck is supple, no lymphadenopathy. Heart: RRR, S1/S2 normal, no murmur, gallop or rub. Lungs: Clear to auscultation with good air movement. Abdomen: Normal active bowels sounds, soft, nontender. No organomegaly. RLQ baclofen pump pocket clean, dry, dressed without evident tenderness or inflammation. Back: Lower midline baclofen pump catheter site dressed / uninflamed. Upper back incision dressed, dry. Extremities: Normal bulk and tone. Distally warm, no edema. Skin: No acute rash or lesion. Right antecubital PICC site lacks inflammation. Neuro: Alert, oriented, moves extremities x 4. Lab Results (last 3): Lab Results Component Value Date/Time ??? WBC 6.6 05/11/10 6:00 AM ??? WBC 6.3 05/06/10 11:00 PM ??? WBC 6.8 05/01/10 6:15 AM ??? RBC 3.11* 05/11/10 6:00 AM ??? RBC 3.07* 05/06/10 11:00 PM ??? RBC 2.89* 05/01/10 6:15 AM ??? HGB 9.2* 05/11/10 6:00 AM ??? HGB 9.0* 05/06/10 11:00 PM ??? HGB 8.6* 05/01/10 6:15 AM ??? HCT 27.1* 05/11/10 6:00 AM ??? HCT 26.7* 05/06/10 11:00 PM ??? HCT 25.6* 05/01/10 6:15 AM ??? MCV 87.1 05/11/10 6:00 AM ??? MCV 87.0 05/06/10 11:00 PM ??? MCV 88.7 05/01/10 6:15 AM ??? BUN 11 05/10/10 6:26 AM ??? BUN 7 05/08/10 7:00 AM ??? BUN 9 05/06/10 11:00 PM ??? CREATININE 0.69 05/10/10 6:26 AM ??? CREATININE 0.63* 05/08/10 7:00 AM ??? CREATININE 0.70 05/06/10 11:00 PM 05/09/10 CSF WBC was 269 vs. 3135 on 04/30/10. Microbiology: 05/11 Ur cx neg (UA with 5 WBCs) 05/09 CSF / pump cxs x 3 NGTD 05/01 and 04/30 CSF cxs with rare MRSE (susceptible to oral agents) 04/11 CSF cxs x 3 neg Impression: 65 year old gentleman with spinal ependymoma causing paraplegia and necessitating baclofen pump placement, now s/p thoracic spinal ependymoma repair on 04/11/10, admitted with headache and fevers due to presumed bacterial meningitis, s/p replacement of the baclofen pump catheter on 05/09. He has been clinically stable, consistently afebrile and has had a normal WBC on a long course of vancomycin and cefepime IV. The 05/09 CSF and pump cultures from the OR have been negative and at that pointhis CSF pleocytosis had already dramatically fallen on the antibiotics. As previously planned in my colleagues' ID notes -- Dr. Moura's note of 05/09/[address] Garcia's last note of 05/05/10 -- it remains reasonable to discontinue Mr. Cullen's IV antibiotic therapy course today which is 72+ hours after the baclofen pump catheter replacement on 05/09/10. To be extra cautious, however, ID continues to recommend an extra thirty days of oral TMP-SMX DS one tablet PO BID to extend his therapy course shan case the two different strains of coagulase-negative Staph recovered on 04/30 and 05/01 were real (although we instead presume they were likely contaminants) and because on 05/09 he still had WBCs in his CSF (although dramatically declining). If this was a true CSF prosthetic device-associated infection, the replacement procedure on 05/09 was, of course, the main therapeutic intervention. But the additional course of Bactrim through the next thirty days provides some additional caution, just in case.However in view of proximity to the central nervous system we could consider extending his course ofantibiotic therapy as a precaution. I discussed the rationale for all of this and how this was consistent with the original plan of a number of days ago with Mr. Cullen and his . I explained to them the the ultimate test of cure of any device-related infection is eventually (after appropriate therapy) to stop the antibiotics and see if the patient remains uninfected, and that in his case it is very reasonable to do so after another 30 days. I told them that TMP-SMX has good oral bioavailability, equivalent to many IV antibiotics. They seem content with the plan and are happy to have him go home on oral Bactrim. Recommendations/Plan: 1) Discontinue the current antibiotics (vancomycin and cefepime) now -- course is complete. 2) Can discontinue the PICC, as planned. 3) Send home on TMP-SMX DS one tablet PO BID for 30 days. 4) Since he will have follow-up with Dr. Baron in Neuro[facility]gery Clinic in about 1.5 weeks (per the patient's ) and they will be following closely, I do not think he needs additional follow-up appointments in ID Clinic as well, unless Dr. Baron wishes if additional questions or concerns arise subsequently. Lázaro Lr MD Pager [phone] Beth Lopez - 05/13/2010 4:40 PM CDT [facility] Transfer Orders to Home Health Care Patient Name: Jie Cullen Date of : 1945 Allergies: Zaroxolyn and Oxycodone Immunizations: Most Recent Immunizations Administered Date(s) Administered ??? Flu Vac (3+ yrs) 10/06/2009 ??? H1n1 Miv Csl 3+ Yr (Injected) 12/06/2009 ??? Pneumococcal, PPSV23 10/06/2009 Current Attending Provider: Maurice Baron MD Discharge Procedure Orders When to Resume Normal Activities: Order Comments: No lifting greater than 10 pounds. No repetitive bending, twisting. No tub bathing, no hot tubs, and no swimming for 30 days post- operatively. Keep incision dry. Discharge Instructions Order Comments: Monitor incision daily for signs of infection (redness, drainage, warmth). Call the Neurosurgery Clinic at [phone] with any incisional changes. Keep incision dry. Leave incision covered, you may need to change the dressing more than once daily, depending on the amount of drainage. Cover with waterproof dressing in the shower. De La Cruz (Urinary Catheter) Call the doctor for these danger signs Order Comments: Any changes in your incision: redness, swelling, drainage, tenderness, or fever greater than 100.5. Any changes in sensation or decrease in strength to your extremeties. Neurosurgery clinic [phone]. Diet Order Comments: Resume pre-op diet. Increase fiber and fluids to avoid constipation. Clinic Referral Order Comments: CLINIC: [facility]: Neurosurgery; [phone]; [address] [place] [address] DOCTORS NAME: Dr. Maurice Baron WHEN TO BE SEEN: On (date) 05/22 at 10:40 REASON FOR APPOINTMENT: MD follow up Lab Tests Order Comments: BASIC METALBOLIC PANEL (NA, K, Cl, CO2, Gluc, BUN, Creat, CA) , CBC-NO DIFF and INR/PROTIME . SCHEDULING INSTRUCTIONS (date/time): 05/15/2010. PLEASE SEND RESULTS TO Primary Care Physician Clinic Referral Order Comments: FOLLOW UP WITH PRIMARY CARE PHYSICIAN IN 1 WEEK DIAGNOSIS: post-hospitalization, INR monitoringPlease take ALL your medications with you to review with your doctor. PHYSICAL THERAPY (PT) REFERRAL Order Comments: EVALUATE AND TREAT Physical Therapy (PT) Referral Order Comments: EVALUATE AND TREAT Admit to Home Care Order Comments: AGENCY NAME: [facility] home care Discharge Medication Orders Current Discharge Medication List START taking these medications !! cyclobenzaprine (AKA FLEXERIL) 10 MG tablet Take 1 Tab by mouth three times a day as needed for Muscle Spasms. Qty: 60 Tab Refills: 0 enoxaparin (AKA LOVENOX) 150 MG/ML injection Inject 0.8 mL subcutaneously every 12 hours for 4 days. Qty: 6.4 mL Refills: 0 !! - Potential duplicate medications found. Please discuss with provider. CONTINUE these medications which have CHANGED baclofen (AKA LIORESAL) 10 MG tablet Take 1 Tab by mouth. Wean schedule: Take 10mg three times a day for 6 doses, then 10mg twice a day for 4 doses, then 10mg daily for 2 days, then 10mg twice daily NEEDED Qty: 90 Tab Refills: 2 CONTINUE these medications which have NOT CHANGED acetaminophen (AKA TYLENOL) 325 MG tablet Take 1-2 Tabs by mouth every 4 hours as needed for Pain. Qty: 120 Tab Refills: 1 atorvastatin (LIPITOR) 40 MG tablet Take 1 Tab by mouth daily. BACLOFEN IT 220 mcg by Intrathecal route daily. citalopram (AKA CELEXA) 40 MG tablet Take 40 mg by mouth daily. !! cyclobenzaprine (AKA FLEXERIL) 10 MG tablet Take 10 mg by mouth two times a day. docusate sodium (AKA ENEMEEZ) 283 MG enema Insert 5 mL rectally daily as needed. PT. USES ENEMA EVERY OTHER DAY. Qty: 15 Each Refills: 0 ferrous sulfate 325 (65 FE) MG tablet Take 1 Tab by mouth daily with breakfast. Qty: 60 Tab Refills: 0 Gabapentin (AKA NEURONTIN) 100 MG tablet Take 2 Tabs by mouth three times a day. lactulose 10 GM/15ML solution Take 30 mL by mouth two times a day as needed. For constipation Qty: 240 mL Refills: 0 LORazepam (AKA ATIVAN) 0.5 MG tablet Take 2 Tabs by mouth three times a day. OMEGA-3 FATTY ACIDS OR Take 1 Cap by mouth daily. povidone-iodine (AKA BETADINE) 10 % external solution Apply topically two times a day. Qty: 15 mL Refills: 1 senna (AKA SENOKOT) 8.6 MG tablet Take [...] directed. Qty: 30 Tab Refills: 11 Comments: INR range of 2.0-3.0 !! - Potential duplicate medications found. Please discuss with provider. These orders have been electronically signed. (In accordance with [employer]. Regulation Set, Fed A0232 - Types of Authentication) Discharging MD: Dr Powell Today's Date: 05/13/10 --- End of Report --- Beth Lopez - 05/13/2010 4:03 PM CDT Brief Weekend Social Work Note Received request to arrange home PT for pt for d/c today. Pt had previously been assessed by [facility] Physical Therapy in [facility] (ph# [phone], fax [phone]). Left message regarding referral @[email or web address] and requested order from MD and will have CHILD THERAPIST fax it. No further needs at this time. Beth Lopez SAWMILL MOULDER OPERATOR, [facility] Beeper [phone] Faxed orders to Greg PT. Ozzy Dietz RN - 05/13/2010 3:21 PM CDT [facility] Progress Note (Nursing) Identify/Problem(s): Comfort Desired Outcome(s): Pt will be comfortable Evaluation: Pt alert & oriented x4. Rates pain @ 2/10 this morning & reports its tolerable. Requested vicodin @ 1430 for moderate headache, rating pain 4/10. Abdomen & upper back dressing changed. Pt up on his wheel chair for both breakfast & lunch tolerating meals & sitting well. Pt & expecting to be d/c'd today. Infectious disease MD who is to decide what kind of antibiotic to takehome called & he is expecting to see the pt @ 1999. VSS. BP 128/85 Pulse 94 Temp(Src) 98.6 ??F (37 ??C) (Oral) Resp 16 SpO2 96% RA Plan: Continue to monitor. Ozzy Dietz RN --- End of Report --- Yen Squires, PT - 05/13/2010 1:54 PM CDT [facility] IP Physical Therapy Progress Note PT Visit Room/Bed: 73543/[id number] Patient Seen: bedside Diagnosis: Encounter Diagnoses Code Name Primary? 453.40U DVT (Deep Venous Thrombosis) Yes ??? 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 784.0 Headache ??? 780.60BQ Fever ??? 728.85T Muscle Spasticity ??? 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 92956 CAREPLAN: BACLOFEN ??? 564.81 Neurogenic Bowel ??? 596.54AL Neurogenic Bladder ??? 788.42 Polyuria Pain: reporting discomfort in low back, but did not rate Action Taken: patient willing to continue with therapy Perception/Cognition/Orientation: patient alert and patient oriented to person/self, place, date/time and situation Action Taken: no action needed Toileting Needs: no needs Action Taken: N/A Education: Provide education regarding role of physical therapy during hospitalization Provide support and encouragement and answered questions related to rehab course Patient Position: in bed positioned on left side with pillows with call light available Treatment: Patient seen this PM bedside to review sliding board transfers with spouse. Patient seated on edge of bed when entered room and willing to participate. Patient transferred sit to supine withmin to mod assist of one to assist with bilateral lower extremities. Patient's assisted donningshorts. Patient required min assist of one to role supine to/from sidelying to position shorts. Patient able to transfer supine to sit with min to mod assist of one to assist with bilateral lower extremities. Therapist observed patient and spouse perform sliding board transfer x 2; bed to/from w/c. Patient's spouse positions sliding board under buttocks with patient leaning to one side and assists pat ients trunk with patient uses bilateral upper extremities to complete transfer. Therapist did not assist with transfers and patient and able to complete transfer safely. Patient positioned in leftsidelying at end of session. Assessment/Plan: Patient and spouse able to demonstrate sliding board transfer x 2 independently. Patient fatigued after two transfers. Patient would benefit from in home PT after discharge for continued mobility training, strengthening, and ROM. Amount of time spent in patient contact: PM: 25 minutes Yen Squires, PT Pager: [phone] Department: [id number] --- End of Report --- Kiko Powell - 05/13/2010 12:42 PM CDT [facility] PROGRESS NOTE DOA: 04/30/2010 1:25 AM DOS: 05/13/2010 SUBJECTIVE: No complaints. at bedside. Denies any chest pain, sob, dizziness, lightheadedness. Eager to be discharged. OBJECTIVE: VS: BP 128/80 Pulse 103 Temp(Src) 98.4 ??F (36.9 ??C) (Oral) Resp 16 Ht 5' 10 (1.778 m) Wt 116.983 kg (257 lb 14.4 oz) SpO2 99% General: AAOx3, no apparent distress HENT: MM moist. CV: RRR, S1 S2 normal, No murmur. Lungs: CTA bilaterally. Back: dressing c/d/i Abd: Normal bowel sounds, soft, NT/ND, dressing on right side c/d/i Ext & Skin: + edema Neuro: CN 2 to 12 grossly intact. AAO x 3. No facial asymmetry. Current hospital medications Medication Dose Route Frequency ??? acetaminophen (aka TYLENOL) tablet 325-650 mg 325-650 mg Oral Q4H PRN ??? atorvastatin (aka LIPITOR) tablet 40 mg 40 mg Oral Daily ??? baclofen (aka LIORESAL) tablet 10 mg 10 mg Oral TID ??? baclofen (aka LIORESAL) tablet 10 mg 10 mg Oral BID ??? baclofen (aka LIORESAL) tablet 10 mg 10 mg Oral Daily ??? baclofen (aka LIORESAL) tablet 10 mg 10 mg Oral BID PRN ??? baclofen (aka LIORESAL) tablet 15 mg 15 mg Oral TID ??? citalopram (aka CELEXA) tablet 40 mg 40 mg Oral Daily ??? cyclobenzaprine (aka FLEXERIL) tablet 10 mg 10 mg Oral TID PRN ??? docusate sodium (aka ENEMEEZ) enema 283 mg 1 Enema Rectal DAILY PRN ??? enoxaparin (aka LOVENOX) injection 115.5 mg 115 mg SC Q12H ??? gabapentin (aka NEURONTIN) capsule 200 mg 200 mg Oral TID ??? heparin injection 400 Units 4 mL IV BID ? ? heparin injection 400 Units 4 mL IV PRN after every IV medication & lab draw ??? hydrocodone-acetaminophen (aka VICODIN,LORTAB) 5-500 MG tablet 1-2 Tab 1-2 Tab Oral Q4H PRN ??? iron polysaccharide complex (aka NIFEREX-150) 150-50-50 MG capsule 1 Cap 1 Cap Oral Daily ??? lactulose oral liquid 20 g 30 mL Oral BID PRN ??? LORazepam (aka ATIVAN) tablet 1 mg 1 mg Oral TID ??? magnesium hydroxide (aka MILK OF MAGNESIA) oral liquid 30 mL 30 mL Oral ONCE PRN ? ? NaCl PF 0.9% injection 3-5 mL 3-5 mL IV PRN after every IV medication & lab draw ??? NaCl PF 0.9% injection 4 mL 4 mL IV PRN per Parameters ??? ondansetron (aka ZOFRAN) injection 4 mg 4 mg IV Q8H PRN ??? patient's own pump Intrathecal Continuous ??? polyethylene glycol 3350 (aka GLYCOLAX) powder 17 g 17 g Oral Daily ??? potassium chloride (aka K-DUR,KLOR-CON M) extended release tablet 40 mEq 40 mEq Oral Daily ??? povidone-iodine (aka BETADINE) 10 % topical liquid Topical BID ??? prochlorPERAZINE (aka COMPAZINE) injection 10 mg 10 mg IV Q6H PRN ??? senna (aka SENOKOT) tablet 17.2 mg 2 Tab Oral BID ??? sulfamethoxazole-trimethoprim (aka BACTRIM DS) 800-160 MG tablet 1 Tab 1 Tab Oral BID ??? warfarin (aka COUMADIN) tablet 5 mg 5 mg Oral 1600 DATA: I have reviewed this patient's labs. 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 He was readmitted 04/30 with headache and fevers, found to have neutrophilic pleocytosis, elevated protein and low glucose in the spinal fluid concerning for bacterial meningitis vs post operative chemical meningitis. CSF Cultures (obtained after initiation of antibiotics) are growing Coagulase negative staphylococcus, however, 2 different strains suggesting contamination. 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 ? infected baclofen pump catheter. Afebrile. Infectious dis involved - ct vanco & cefepime per ID recs (Cefepime 2 grams q12 hours through 05/12/10 and Vancomcyin 2 gms q 12 hours). As per Infectious disease, may use oralbactrim one DS BID for the next 30 days after IV abx completed. Vicodin prn for headache. H/o delirium with percocet in past. will need to coordinate OP IV antibiotics once closer to discharge if that needs to be continued - does not have coverage for home IV abx, does not want to go to TCU. Pt started on bactrim Pt underwent REVISION OF BACLOFEN PUMP CATHETER on 05/09 but pump not changed. Polyuria - notes polyuria since thoracic spine surgery 04/20/10, prev admission reviewed - UOP was 3000 - 6000 cc / day range starting 04/13/10, UOP 2100 on 04/12 - looks well hydrated inspite of UOP 5000 - 7500 cc / day. No clinical e/o dehydration. Serum sodium also normal. No hypercalcemia. No meds that could contribute. ? Excess Po fluid intake vs cerebral salt wasting - U Na is 143. Nephrology on case and this does not appear to be cerebral salt wasting. 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 Coumadin restarted 05/11. Pt will need to be on lovenox until INR is therapeutic. Discussed with neurosurgery and pt is okay to have lovenox bridging BID until INR therapeutic. Hypotension: will give a bolus of 250 cc and monitor. Improved. Dyslipidemia: on statins Chronic constipation & neurogenic bladder - was doing straight cath in past but since recent discharge 04/20, had large urine volumes & discomfort in between caths. - Prophylaxis: back on coumadin. Kiko Powell MD [facility] Hospitalist Pager: [phone] TT spent >35 min and 50% in CC of above issues which includes review of EPIC including notes/labsand imaging, discussion of care plan with pt and time spent in documentation on the pt's floor today. Shabbir Bush RN - 05/13/2010 2:28 AM CDT Problem: Falls Risk Goal: Low Risk (0-4): Fall Prevention I applied all active low risk falls prevention interventions. Shabbir Bush RN - 05/13/2010 1:56 AM CDT [facility] Progress Note (Nursing) Identify/Problem(s): Pain/comfort/skin integrity Desired Outcome(s): Pt will be comfortable, will have an improved skin intergrity Evaluation: Pt alert and oriented x3. Repositioned for comfort and for skin breakdown. No loose stools this shift. De La Cruz patent with dark yellow urine.Patient Vitals in the past 8 hrs: BP Temp Temp src Pulse Resp SpO2 Height Wt - Scale 05/12/10 2300 136/88 mmHg 97.5 ??F (36.4 ??C) Oral 91 16 98 % - - 05/12/10 2038 123/81 mmHg 97.5 ??F (36.4 ??C) Oral 89 16 97 % - - Plan: Will continue to monitor pt status. Shabbir Bush RN --- End of Report --- Loretta Walters RN - 05/12/2010 11:47 PM CDT [facility] Progress Note (Nursing) Identify/Problem(s): GI function Desired Outcome(s): Maintenance of bowel regimen Evaluation: Patient incontinent of large amounts liquid stool on day and evening shifts. Skin integrity intact. Abdomen large, round and soft. Patient much more alert today. Continued to refuse po baclofen. vicoden given for headache with good relief. Plan: Discussed plan of care with patient and family. Anxious to return home. Question is whether he can discharge on po antibiotics or will continue to need IV. Loretta Walters RN --- End of Report --- AT Loretta Walters RN - 05/12/2010 10:53 PM CDT Problem: Falls Risk Goal: Moderate Risk (5-10): Fall Prevention I applied all active moderate risk falls prevention interventions. Martha Thomas - 05/12/2010 2:51 PM CDT PMR note Patient was asleep. not present. Oral baclofen taper ordered and in EPIC. See orders. Patient should f/up with his PMR physician for ITB. Martha South MD Geetha Osuna - 05/12/2010 2:49 PM CDT [facility] NeuroSurgery Progress Note 05/12/2010 Vitals Temp (24hrs), Min:97.5 ??F (36.4 ??C), Max:98.2 ??F (36.8 ??C) No Data Recorded Exam Awake and alert States he is feeling much better today Refusing baclofen po doses today Incision intact Labs Lab Results Component Value Date/Time ??? SODIUM 139 05/10/10 6:26 AM ??? HGB 9.2* 05/11/10 6:00 AM ??? PROTIME 17.7* 05/09/10 3:59 AM ??? INR 1.4 05/09/10 3:59 AM ??? CSFRBC 169 05/09/10 1:00 PM ??? CSFWBC 269* 05/09/10 1:00 PM ??? CSFLYMPH 18 05/09/10 1:00 PM ??? CSFGLUCOSE 34* 05/09/10 1:00 PM ??? CSFPROTEIN 247* 05/09/10 1:00 PM Imaging No new imaging results Assessment 64 yo s/p ependymoma resection, readmitted for meningitis. Continues to have low grade fevers, hx ofDVT, on coumadin. S/p REVISION OF BACLOFEN PUMP CATHETER 05/09/[address] Maurice Baron Plan No family at bedside today Sutures removed during rounds today Change dressing daily, may need to be changed more frequently, expect suture sites will drain Continue to wean off Baclofen, encouraged him to take weaning po doses Up with assist PT/OT Continue full anticoagulation Appreciate medicine following Antibiotic recs per ID Plan to dc home this weekend, if he is feeling well. Told him to play it by ear. If he is not well, he should stay through weekend Geetha Osuna RN Neurosurgery Nurse Clinician [phone] I, Geetha Osuna RN, am serving as a scribe to document services personally performed by Dr. Maurice Baron. All data has been reviewed by Dr. Maurice Baron. --- End of Report --- Maurice Baron - 05/12/2010 2:49 PM CDT I have examined the patient and reviewed the plan of care and agree with the previous note. Maurice Baron MD 05/16/2010, 5:14 AM Tania Brantley - 05/12/2010 11:27 AM CDT [facility] Care Management Identification Technician Follow Up Note Admission Date/Time: 04/30/2010 1:25 AM Attending MD: Maurice Baron Date Chart reviewed; discussed with interdisciplinary team and with patient and family. Coordination of Care: Provided patient/family with options for dc planning. Barriers to Discharge: patient continues to require acute medical care Updated Assessment Discussed plan of care with ISMAEL Iniguez nurse. Pt should likely dc over the weekend, possibly Saturday. I met with , Heather this am. Discussed with her how she feels pt is doing today with mobility and does she feel comfortable with caring for him at home. Heather states pt is doing much better today. She states therapist here this am and basically she watched pt get from lying to sitting position and observed transfer. She feels pt is at his baseline for mobility and feels comfortable with bring him home and assisting in his care as prior to admission. She feels pt may have been getting too much baclofen and as it is tapered down, his mental status is clearing. She denies any concerns regarding dc home. I encouraged her to come speak with me should she have any concerns arise today otherwise plan for pt to dc home possibly Saturday with de la cruz and oral abx and without skilled services. Call with questions. Updated Plan of Care Anticipated Discharge Date: 05/13/10 Anticipated Discharge Plan: home with Plan for Follow Up: will f/u should pt or request. Report completed by Tania Brantley RN, Pager Number [phone] --- End of Report --- Sedrick Mary Ann M - 05/12/2010 10:24 AM CDT [facility] Physical Therapy Progress Note PT Visit Room/Bed: 89368/[id number] Patient Seen: bedside Diagnosis: Encounter Diagnoses Code Name Primary? 322.9P Meningitis Yes ??? 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 784.0 Headache ??? 780.60BQ Fever ??? 728.85T Muscle Spasticity ??? 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 86164 CAREPLAN: BACLOFEN ??? 564.81 Neurogenic Bowel ??? 453.40U DVT (Deep Venous Thrombosis) ??? 596.54AL Neurogenic Bladder ??? 788.42 Polyuria Pain: mild headache Action Taken: patient willing to continue with therapy Perception/Cognition/Orientation: patient alert and patient oriented to person/self, place, date/time and situation Action Taken: no action needed Toileting Needs: requested to go to bathroom Action Taken: nursing notified and patient assisted to bathroom Education: Provide education regarding role of physical therapy during hospitalization Provide support and encouragement and answered questions related to rehab course Patient Position: on toilet, with nursing and spouse AM: Seen at bedside, spouse present. Reports feeling better today, spouse states he's more himself today. Rolling left and right with min assist of one to pull shorts up over hips; spouse normally positions pants for him. Sat up on the EOB with assist of one to bring legs over the edge of bed and UEassist. Sitting balance on the EOB is fair. Patient's spouse assists with positioning sliding board under buttocks with patient leaning to one side. Transferred from bed to chair with assist of spouse,this therapist observing and present for safety. While transferring, note patient's bowels starting to move, determined getting to the toilet would be best. Patient wheeled himself into the bathroom, ne gotiating obstacles well; assist of one to manage IV pole. Patient and spouse positioning chair, sliding board, and completing transfer with supervision only. No additional physical assist was requiredfrom this therapist. Needed assist with getting shorts off, removing transfer board etc; however spouse feeling quite confident in their ability to do transfers. Patient needing further time in bathroom at the end of session, nursing staff present as well as his spouse to aid in transfer back to wheelchair. Assessment/Plan: Patient and spouse demonstrate safe transfers x2 with PT today. Slightly concerned regarding his level of endurance for further transfers later in the day. Would perhaps benefit from in home PT after discharge for continued mobility training, strengthening and stretching to bilateral UE's. Amount of time spent in patient contact: AM: 45 minutes Mary Ann Dubose, PT Department number is [phone] Pager number is [phone] --- End of Report --- Kiko Powell S - 05/12/2010 9:56 AM CDT [facility] PROGRESS NOTE DOA: 04/30/2010 1:25 AM DOS: 05/12/2010 SUBJECTIVE: Feels better today. No chest pain or sob. OBJECTIVE: VS: BP 142/88 Pulse 89 Temp(Src) 97.8 ??F (36.6 ??C) (Oral) Resp 16 Ht 5' 10 (1.778 m) Wt116.348 kg (256 lb 8 oz) SpO2 97% General: AAOx3, no apparent distress, pleasant, cooperative HENT: MM moist. CV: RRR, S1 S2 normal, No murmur. Lungs: CTA bilaterally. Abd: Normal bowel sounds, soft, NT/ND, dressing on right side c/d/i Ext & Skin: + edema Neuro: CN 2 to 12 grossly intact. AAO x 3. No facial asymmetry. Current hospital medications Medication Dose Route Frequency ??? acetaminophen (aka TYLENOL) tablet 325-650 mg 325-650 mg Oral Q4H PRN ??? atorvastatin (aka LIPITOR) tablet 40 mg 40 mg Oral Daily ??? baclofen (aka LIORESAL) tablet 10 mg 10 mg Oral TID ??? baclofen (aka LIORESAL) tablet 10 mg 10 mg Oral BID ??? baclofen (aka LIORESAL) tablet 10 mg 10 mg Oral Daily ??? baclofen (aka LIORESAL) tablet 10 mg 10 mg Oral BID PRN ??? baclofen (aka LIORESAL) tablet 15 mg 15 mg Oral TID ??? cefepime (aka MAXIPIME) 2 g in NaCl 0.9 % 100 mL IV piggyback 2 g IV Q12H(NS) ??? citalopram (aka CELEXA) tablet 40 mg 40 mg Oral Daily ??? cyclobenzaprine (aka FLEXERIL) tablet 10 mg 10 mg Oral TID PRN ??? docusate sodium (aka ENEMEEZ) enema 283 mg 1 Enema Rectal DAILY PRN ??? enoxaparin (aka LOVENOX) injection 115.5 mg 115 mg SC Q12H ??? gabapentin (aka NEURONTIN) capsule 200 mg 200 mg Oral TID ??? heparin injection 400 Units 4 mL IV BID ? ? heparin injection 400 Units 4 mL IV PRN after every IV medication & lab draw ??? iron polysaccharide complex (aka NIFEREX-150) 150-50-50 MG capsule 1 Cap 1 Cap Oral Daily ??? lactulose 200 g in sterile water 200 mL rectal 300 mL Rectal ONCE PRN ??? lactulose oral liquid 20 g 30 mL Oral BID PRN ??? LORazepam (aka ATIVAN) tablet 1 mg 1 mg Oral TID ??? magnesium hydroxide (aka MILK OF MAGNESIA) oral liquid 30 mL 30 mL Oral ONCE PRN ? ? NaCl PF 0.9% injection 3-5 mL 3-5 mL IV PRN after every IV medication & lab draw ??? NaCl PF 0.9% injection 4 mL 4 mL IV PRN per Parameters ??? ondansetron (aka ZOFRAN) injection 4 mg 4 mg IV Q8H PRN ??? oxycoDONE (aka ROXICODONE) tablet 5-10 mg 5-10 mg Oral Q4H PRN ??? patient's own pump Intrathecal Continuous ??? polyethylene glycol 3350 (aka GLYCOLAX) powder 17 g 17 g Oral Daily ??? potassium chloride (aka K-DUR,KLOR-CON M) extended release tablet 40 mEq 40 mEq Oral Daily ??? povidone-iodine (aka BETADINE) 10 % topical liquid Topical BID ??? prochlorPERAZINE (aka COMPAZINE) injection 10 mg 10 mg IV Q6H PRN ??? senna (aka SENOKOT) tablet 17.2 mg 2 Tab Oral BID ??? sulfamethoxazole-trimethoprim (aka BACTRIM DS) 800-160 MG tablet 1 Tab 1 Tab Oral BID ??? vancomycin (aka VANCOCIN) 2,000 mg in NaCl 0.9 % 500 mL IV PIGGYBACK 2 g IV Q12H(NS) ??? warfarin (aka COUMADIN) tablet 5 mg 5 mg Oral 1600 DATA: I have reviewed this patient's labs. 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 He was readmitted 04/30 with headache and fevers, found to have neutrophilic pleocytosis, elevated protein and low glucose in the spinal fluid concerning for bacterial meningitis vs post operative chemical meningitis. CSF Cultures (obtained after initiation of antibiotics) are growing Coagulase negative staphylococcus, however, 2 different strains suggesting contamination. 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 ? infected baclofen pump catheter. Afebrile. Infectious dis involved - ct vanco & cefepime per ID recs (Cefepime 2 grams q12 hours through 05/12/10 and Vancomcyin 2 gms q 12 hours). As per Infectious disease, may use oralbactrim one DS BID for the next 30 days after IV abx completed. Vicodin prn for headache. H/o delirium with percocet in past. will need to coordinate OP IV antibiotics once closer to discharge if that needs to be continued - does not have coverage for home IV abx, does not want to go to TCU. Will needto coordinate at clinic / local ER - spring encaser aware & involved. Pt underwent REVISION OF BACLOFEN PUMP CATHETER on 05/09 but pump not changed. F/u fluid c/s. Polyuria - notes polyuria since thoracic spine surgery 04/20/10, prev admission reviewed - UOP was 3000 - 6000 cc / day range starting 04/13/10, UOP 2100 on 04/12 - looks well hydrated inspite of UOP 5000 - 7500 cc / day. No clinical e/o dehydration. Serum sodium also normal. No hypercalcemia. No meds that could contribute. ? Excess Po fluid intake vs cerebral salt wasting - U Na is 143. Nephrology on case and this does not appear to be cerebral salt wasting. 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 Coumadin restarted 05/11. Monitor INR Dyslipidemia: on statins Chronic constipation & neurogenic bladder - was doing straight cath in past but since recent discharge 04/20, had large urine volumes & discomfort in between caths. - Prophylaxis: back on coumadin - F/U: Fluid c/s, urine cultures Kiko Powell MD [facility] Hospitalist Pager: [phone] TT spent >15 min and 50% in CC of above issues which includes review of EPIC including notes/labsand imaging, discussion of care plan with pt and time spent in documentation on the pt's floor today. Dave Sapp PA-C - 05/12/2010 9:23 AM CDT [facility] Progress Note (Nursing) Identify/Problem(s): GI/Activity Desired Outcome(s): Pt will have return of baseline GI function/will have a BM. Will participate in activities. Evaluation: VS noted. Pt having some complaint of FIELDS and medicated with Vicodin for good relief. He was up to the side of the bed and was working with PT/OT. Lactulose was given PO and via enema for very good results. His abd is now soft and at baseline per his . Dressing to the posterior neck, lumbar region and RLQ of abd has been changed. ALL sites appear to be C/D/I. at bedside and has been extremelyhelpful in cares. Pt now appears to be resting comfortably and able to make his needs known. Plan: Continue to monitor, medicate with PRN bowel meds. Continue to coordinate and collaborate with primary and consulting teams in the care of this patient. Offer and Provide support to patient and family.Discussed plan of care with patient, family and provider. Dave Knutson RN --- End of Report --- Dave Sapp PA-C - 05/12/2010 9:23 AM CDT Problem: Falls Risk Goal: High Risk (11+): Fall Prevention I applied all active high risk falls prevention interventions. Patria Wright - 05/12/2010 8:28 AM CDT [facility] Occupational Therapy Brief Contact Note Orders received for OT eval/tx. Met briefly with pt/ this AM. Pt sitting EOB about to begin breakfast. Introduced myself and role of OT. Pt/ feel at this point OT eval is not necessary as they already have a routine and adequate assist at home. They have no questions or concerns about d/c'ing home and resuming self cares other than the idea that pt may need more assist with transfers which PTis addressing. Pt reports having stiff shoulders/neck however yesterday PT began to address this during their eval; therefore will defer this to PT as they plan to continue following pt thru hospital stay. Encouraged pt/ to let RN/MD know if any specific OT needs arise prior to d/c; otherwise willnot initiate OT eval. Amount of time spent in patient contact: 5 minutes (no charges submitted) Patria Wright OTR/L (pager) OT Dept #: [phone] - OT Weekend Pager #: [phone] - [facility] Main #: [phone] --- End of Report --- Merced Snowden RN - 05/12/2010 2:53 AM CDT [facility] Progress Note (Nursing) Identify/Problem(s): Comfort Desired Outcome(s): Patient will be comfortable Evaluation: Patient sleepy, arouses to voice. Oriented. Patient is more alert when he woke up this am. Denies pain. Requesting to be changed to vicodin for pain. No prns given this shift. Repositioned x2 for comfort. De La Cruz patent, 550ml clear yellow output. VSS, BP 116/65 Pulse 97 Temp(Src) 98 ??F (36.7 ??C) (Oral) Resp 18 Ht 5' 10 (1.778 m) Wt 116.348 kg (256 lb 8 oz) SpO2 96%. PICC patent. Plan: Continue to monitor comfort Merced Snowden RN --- End of Report --- Loretta Walters RN - 05/12/2010 12:36 AM CDT [facility] Progress Note (Nursing) Identify/Problem(s): lethargy Desired Outcome(s): Return to usual level of alertness Evaluation: Patient unable to stay awake. His said he is receiving normal dose of baclofen from his pump. Refused oral doses. Reported moderate headache on right side of sikh. Area massaged for 10min. Pt fell asleep and slept soundly for 2 hours. Awoke headache free. Plan: Discussed plan of care with patient and family. Check with MD re discontinuing oral baclofen. Also check with MD regarding changing pain med to Vicodin, since percocet causes pt confusion. Loretta Walters RN --- End of Report --- Loretta Mancuso RN - 05/12/2010 12:24 AM CDT Problem: Falls Risk Goal: High Risk (11+): Fall Prevention I applied all active high risk falls prevention interventions. Geetha Osuna - 05/11/2010 3:10 PM CDT [facility] NeuroSurgery Progress Note 05/11/2010 Vitals Temp (24hrs), Min:97.8 ??F (36.6 ??C), Max:99 ??F (37.2 ??C) No Data Recorded Exam Sitting up in wheelchair Feels and appears very tired today May need to back off Baclofen dose Feeling weak with activity Labs Lab Results Component Value Date/Time ??? SODIUM 139 05/10/10 6:26 AM ??? HGB 9.2* 05/11/10 6:00 AM ??? PROTIME 17.7* 05/09/10 3:59 AM ??? INR 1.4 05/09/10 3:59 AM ??? CSFRBC 169 05/09/10 1:00 PM ??? CSFWBC 269* 05/09/10 1:00 PM ??? CSFLYMPH 18 05/09/10 1:00 PM ??? CSFGLUCOSE 34* 05/09/10 1:00 PM ??? CSFPROTEIN 247* 05/09/10 1:00 PM Imaging No new imaging results Assessment 64 yo s/p ependymoma resection, readmitted for meningitis. Continues to have low grade fevers, hx ofDVT, on coumadin. S/p REVISION OF BACLOFEN PUMP CATHETER 05/09/[address] Maurice Baron Plan at bedside, updated, answered questions Change dressing daily Dc REMEDIAL READING TEACHER Will contact PM&R to see if we can back off Baclofen Hgb noted, will monitor for now Up with assist PT/OT Ok to resume full anticoagulation today Appreciate medicine following Antibiotic recs per ID Geetha Osuna RN Neurosurgery Nurse Clinician [phone] I, Geetha Osuna RN, am serving as a scribe to document services personally performed by Dr. Maurice Baron. All data has been reviewed by Dr. Maurice Baron. --- End of Report --- Maurice Baron - 05/11/2010 3:10 PM CDT I have examined the patient and reviewed the plan of care and agree with the previous note. Maurice Baron MD 05/16/2010, 5:13 AM Garth Rodriguez - 05/11/2010 1:34 PM CDT [facility] Progress Note (Nursing) Identify/Problem(s): Pain, Wound, Activity, GI. Desired Outcome(s): Pt will report a decrease in pain per patients perception of comfort. Pt's wound will show signs of optimal wound healing without complications. Patient will tolerate increase in activity and participate in PT this shift. Patient will report increase in GI function. Evaluation: Pt denies pain this shift, when asked to rate it he states Not bad. Pt only using Dilaudid REMEDIAL READING TEACHER total for this shift was 0.4mg. Patient slept comfortably for the majority of this shift. Patient's midline upper back dressing and lower back dressing are clean dry and intact, no drainage noted. Both were changed today and betadine was applied to incisions. RUQ dressing is clean, dry and intact. Dressing remains in place. No signs of infection or complications noted at this time. Pt requested to transfer to his wheelchair this shift and did so with an assist of 3, pt tolerated this well. Prior to today pt had no PT/OT orders in, PT is scheduled for today at 1500. Pt requesting that his bowel program be performed today, lactulose was ordered and he will took it at 1500. Patient Vitals in the past 8 hrs: BP Temp Temp src Pulse Resp SpO2 Height Wt - Scale 05/11/10 1200 130/77 mmHg 98.5 ??F (36.9 ??C) Oral 95 18 95 % 05/11/10 0800 143/88 mmHg 98.1 ??F (36.7 ??C) Oral 98 18 98 % Plan: Continue to monitor pain and medicate PRN. Continue to monitor wounds for signs of infection or complications, complete dressing changes as ordered and PRN. Encourage patient to continue increasing activity as tolerated. Complete patient's bowel program this afternoon/evening. Discussed plan of care with patient, family and landcare facilitator. Romelia Rodriguez RN --- End of Report --- Garth Rodriguez - 05/11/2010 12:50 PM CDT Problem: Falls Risk Goal: Moderate Risk (5-10): Fall Prevention I applied all active moderate risk falls prevention interventions. Jamie Ralph RD, ALEJA - 05/11/2010 11:36 AM CDT [facility] Nutrition Reassessment and Care Plan CURRENT NUTRITION DIAGNOSIS Inadequate oral food/beverage intake related to decreased po intake as evidenced by insufficient energy intake compared to estimated needs. Nutrition Status Classification: Moderate Nutritional Risk/Status NUTRITION INTERVENTION 1. Recommend changing diet to Regular to allow for chocolate flavored high protein supplements. 2. Continue supplements 3. Order snacks: watermelon, pudding, peanut butter and crackers 4. Encourage adequate intake of diet and supplements NUTRITION MONITORING, EVALUTION, AND OUTCOME GOALS Monitor: dietary intake and tolerance, supplement intake and tolerance, bowel function, pertinent labs and weight changes Outcome Goal(s): 1. Consistently eat 75+ % of meals 2. Consume 2-3 high protein/high calorie supplements/day 3. Achieve/maintain labs WNL 4. Weight maintenance Ongoing monitoring with F/U EMR documentation within [address],ALEJA If you have questions call Registered Dietitian Beeper at [phone] Weekend pager: [phone] Progress Since Last Assessment Current Nutrition/Diet Order: Diet: Cardiac diet + CIB at meals Patient/Family Interview: Pt and in room. Pt said he is eating okay and that he has received solid food for breakfast this AM. He likes the supplements but prefers the vanilla and would like to try the chocolate flavored one. Dietary Intake Since Admission: Pt is consuming 25-75% of meals. Average of 45% from the 5 meals recorded in the past 5 days. Intake/Tolerance/Progress Toward Goals: consuming high protein supplements daily but do not feel that pts current dietary intake is meeting estimated needs. Pts weight is stable at this time. Weight: Admission Wt - Scale: 116.6 kg (257 lb 0.9 oz) Last Weight: Wt - Scale: 116.348 kg (256 lb 8 oz) Significant Weight Change: Pts weight remains stable IBW: 75kg , 154% IBW, adjusted body weight: 85kg Estimated calorie/protein needs: Weight used for Estimated Energy Needs = 85 (ABW) Est energy needs: BEE (1693) x 1.2 = 2030 kcal/day (24kcal/kg) Est protein needs: 1.0-1.2 gms/kg = 85-102 gms/day --- End of Report --- Tania Brantley - 05/11/2010 10:47 AM CDT [facility] Care Management Identification Technician Follow Up Note Admission Date/Time: 04/30/2010 1:25 AM Attending MD: Maurice Baron Date Chart reviewed; discussed with interdisciplinary team and with patient and family. Coordination of Care: Provided patient/family with options for dc planning. Barriers to Discharge: patient continues to require acute medical care Updated Assessment Met with pt's this am. Pt sleeping and did not awake during our conversation. Informed Heather that I discussed with Geetha, NS nurse yesterday the recs from ID MD, Dr. Moura for continuance of IV abx through 05/12 and then convert to oral Bactrim DS for 30 days. Geetha stated she discussed with Dr. Baron who is agreeable with this plan. So, at this time, the plan would be for pt to complete his iv abx here and will dc on oral abx. Heather is happy with this. Is asking what kind of abx this is and I deferred her to the MD. Discussed with Heather how she feels pt's mobility has been. She felt he was doing well up until this most recent surgery but now seems he is a little bit weaker. Noted PT and OT have not yet been ordered given pt was on bedrest. Informed Heather I would ask NS team if therapy could be ordered. I did speak with Geetha and did receive okay to order both PT and OT and is aware. Given he may dc over the weekend, will need to know if pt is at baseline with mobilityand to be sure is comfortable.. Heather also states plan is for pt to dc with de la cruz given his high urine output. They were unable to manage the high volumes at home with straight cathing. His primary placed de la cruz. states when pt was getting up to a sitting position, she noticed his left arm w as shaking while he was holding on to bed railing. She is wondering what could be causing this. I encouraged her to discuss with Dr. aBron when he rounds and I did also inform Geetha. At this time, anticipate pt will dc home with possibly over weekend with likely no skilled services. Will watch PT and OT's notes for any dc recommendations. Call with questions. Updated Plan of Care Anticipated Discharge Date: 05/13 or 05/14? Anticipated Discharge Plan: home with Plan for Follow Up: tomorrow Report completed by Tania Brantley RN, Pager Number [phone] --- End of Report --- Kiko Powell 05/11/2010 9:31 AM CDT HOSPITAL MEDICINE PROGRESS NOTE DOA: 04/30/2010 1:25 AM DOS: 05/11/2010 SUBJECTIVE: No complaints. at bedside states that he was confused earlier. OBJECTIVE: VS: BP 143/88 Pulse 98 Temp(Src) 98.1 ??F (36.7 ??C) (Oral) Resp 18 Ht 5' 10 (1.778 m) Wt116.348 kg (256 lb 8 oz) SpO2 98% General: AAOx3, no apparent distress, pleasant, cooperative HENT: MM moist. CV: RRR, S1 S2 normal, No murmur. Lungs: CTA bilaterally. Abd: Normal bowel sounds, soft, NT/ND, dressing on right side c/d/i Ext & Skin: + edema Neuro: CN 2 to 12 grossly intact. AAO x 3. No facial asymmetry. Current hospital medications Medication Dose Route Frequency ??? acetaminophen (aka TYLENOL) tablet 325-650 mg 325-650 mg Oral Q4H PRN ??? atorvastatin (aka LIPITOR) tablet 40 mg 40 mg Oral Daily ??? baclofen (aka LIORESAL) tablet 20 mg 20 mg Oral QID ??? cefepime (aka MAXIPIME) 2 g in NaCl 0.9 % 100 mL IV piggyback 2 g IV Q12H(NS) ??? citalopram (aka CELEXA) tablet 40 mg 40 mg Oral Daily ??? cyclobenzaprine (aka FLEXERIL) tablet 10 mg 10 mg Oral TID PRN ??? docusate sodium (aka ENEMEEZ) enema 283 mg 1 Enema Rectal DAILY PRN ??? enoxaparin (aka LOVENOX) injection 115.5 mg 115 mg SC Q12H ??? gabapentin (aka NEURONTIN) capsule 200 mg 200 mg Oral TID ??? heparin injection 400 Units 4 mL IV BID ? ? heparin injection 400 Units 4 mL IV PRN after every IV medication & lab draw ??? HYDROmorphone (aka DILAUDID) 10 mg in NaCl 0.9 % 50 mL REMEDIAL READING TEACHER syringe IV Titrate ??? iron polysaccharide complex (aka NIFEREX-150) 150-50-50 MG capsule 1 Cap 1 Cap Oral Daily ??? lactulose 200 g in sterile water 200 mL rectal 300 mL Rectal ONCE PRN ??? LORazepam (aka ATIVAN) tablet 1 mg 1 mg Oral TID ??? magnesium hydroxide (aka MILK OF MAGNESIA) oral liquid 30 mL 30 mL Oral ONCE PRN ??? NaCl 0.9 % infusion 1,000 mL 1,000 mL IV Continuous ? ? NaCl PF 0.9% injection 3-5 mL 3-5 mL IV PRN after every IV medication & lab draw ??? NaCl PF 0.9% injection 4 mL 4 mL IV PRN per Parameters ??? naloxone (aka NARCAN) injection 0.4 mg 0.4 mg IV PRN per Parameters ??? ondansetron (aka ZOFRAN) injection 4 mg 4 mg IV Q8H PRN ??? patient's own pump Intrathecal Continuous ??? polyethylene glycol 3350 (aka GLYCOLAX) powder 17 g 17 g Oral Daily ??? potassium chloride (aka K-DUR,KLOR-CON M) extended release tablet 40 mEq 40 mEq Oral Daily ??? povidone-iodine (aka BETADINE) 10 % topical liquid Topical BID ??? prochlorPERAZINE (aka COMPAZINE) injection 10 mg 10 mg IV Q6H PRN ??? senna (aka SENOKOT) tablet 17.2 mg 2 Tab Oral BID ??? sulfamethoxazole-trimethoprim (aka BACTRIM DS) 800-160 MG tablet 1 Tab 1 Tab Oral BID ??? vancomycin (aka VANCOCIN) 2,000 mg in NaCl 0.9 % 500 mL IV PIGGYBACK 2 g IV Q12H(NS) ??? warfarin (aka COUMADIN) tablet 5 mg 5 mg Oral 1600 DATA: I have reviewed this patient's labs. 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 He was readmitted 04/30 with headache and fevers, found to have neutrophilic pleocytosis, elevated protein and low glucose in the spinal fluid concerning for bacterial meningitis vs post operative chemical meningitis. CSF Cultures (obtained after initiation of antibiotics) are growing Coagulase negative staphylococcus, however, 2 different strains suggesting contamination. 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 ? infected baclofen pump catheter. Afebrile. Infectious dis involved - ct vanco & cefepime per ID recs (Cefepime 2 grams q12 hours through 05/12/10 and Vancomcyin 2 gms q 12 hours). As per Infectious disease, may use oralbactrim one DS BID for the next 30 days after IV abx completed. Vicodin prn for headache. H/o delirium with percocet in past. will need to coordinate OP IV antibiotics once closer to discharge if that needs to be continued - does not have coverage for home IV abx, does not want to go to TCU. Will needto coordinate at clinic / local ER - spring encaser aware & involved. Pt underwent REVISION OF BACLOFEN PUMP CATHETER on 05/09 but pump not changed. F/u fluid c/s. Polyuria - notes polyuria since thoracic spine surgery 04/20/10, prev admission reviewed - UOP was 3000 - 6000 cc / day range starting 04/13/10, UOP 2100 on 04/12 - looks well hydrated inspite of UOP 5000 - 7500 cc / day. No clinical e/o dehydration. Serum sodium also normal. No hypercalcemia. No meds that could contribute. ? Excess Po fluid intake vs cerebral salt wasting - U Na is 143. Nephrology on case and this does not appear to be cerebral salt wasting. 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 Coumadin on hold for surgery. Restart coumadin once okay with surgery. Dyslipidemia: on statins Chronic constipation & neurogenic bladder - was doing straight cath in past but since recent discharge 04/20, had large urine volumes & discomfort in between caths. Repeat u/a after changing catheter. - Prophylaxis: coumadin if okay with NSY - F/U: Fluid c/s, cbc, u/a after de la cruz changed. Kiko Powell MD [facility] Hospitalist Pager: [phone] TT spent >35 min and 50% in CC of above issues which includes review of EPIC including notes/labsand imaging, discussion of care plan with pt and time spent in documentation on the pt's floor today. Merced Snowden RN - 05/11/2010 5:08 AM CDT [facility] Progress Note (Nursing) Identify/Problem(s): Comfort Desired Outcome(s): Patient will be comfortable Evaluation: Patient alert and oriented during assessment. Lethargic overnight. Turned x3. De La Cruz site CDI. Urine yellow with 1550ml out this shift. Has dilaudid REMEDIAL READING TEACHER 0.2 bumps only 15 min lockout, used 0.61mg this shift. Pain is managed well with REMEDIAL READING TEACHER per patient. Dressings are CDI. Was able to draw am lab from PICC. VSS, BP 125/72 Pulse 107 Temp(Src) 98 ??F (36.7 ??C) (Oral) Resp 18 Ht 5' 10 (1.778 m) Wt 114.352 kg (252 lb 1.6 oz) SpO2 96%. Neuros and cms intact. Denies nausea. Plan: Continue to monitor comfort Merced Snowden RN --- End of Report --- Ozzy Busby - 05/10/2010 10:51 PM CDT [facility] Progress Note (Nursing) Identify/Problem(s): Comfort Desired Outcome(s): Pt will be comfortable Evaluation: Pt drowsy most of the day. Denies pain. REMEDIAL READING TEACHER dilaudid basal stopped @ 1600, bumps only 0.2mg q 15 mins, pt used 0.41mg the last 8 hrs. Pt sat at the edge of the bed for dinner for 30 mins, reported mildheadache & laid back in bed. Repositioning side to side q 2 hrs. Both back dressings changed PM shift. De La Cruz changed AM shift. Pt's questioning about baclofen med tapering, notified & he said they are aware of it. BS +, pt's appetite minimal, at 25% of his dinner. No nausea of vomitingPM shift. Plan: Continue to monitor. Ozzy Dietz RN --- End of Report --- Jayna Ambriz - 05/10/2010 9:58 PM CDT RENAL PROGRESS NOTE notes more LE edema in legs/feet. Has not been sitting up today. Breathing ok. BP 134/85 Pulse 100 Temp(Src) 98.2 ??F (36.8 ??C) (Oral) Resp 16 Ht 5' 10 (1.778 m) Wt 114.352 kg (252 lb 1.6 oz) SpO2 92% Last 5 Encounter Wt Readings: ED to Hosp-Admission (Current) on 04/30/2010 05/10/2010 7:00 AM Weight: 114.352 kg (252 lb 1.6 oz) Surgery on 05/09/2010 05/10/2010 7:00 AM Weight: 114.352 kg (252 lb 1.6 oz) Admission from 04/11/2010 to 04/20/2010 04/11/2010 11:53 AM Weight: 104.327 kg (230 lb) Surgery on 04/11/2010 04/11/2010 11:53 AM Weight: 104.327 kg (230 lb) Admission from 04/05/2010 to 04/06/2010 04/05/2010 3:56 PM Weight: 104.327 kg (230 lb) CV RR no mrg Lungs CTA 2-3+ edema of buttocks, thighs, legs/feet. Not so different from previously. Intake/Output Summary (Last 24 hours) at 05/10/102157 Last data filed at 05/10/10 2122 Gross per 24 hour Intake 1635 ml Output 4600 ml Net -2965 ml @[id number]@Last Chem10 results: Lab Results Component Value Date/Time ??? SODIUM 139 05/10/10 6:26 AM ??? K 4.3 05/10/10 6:26 AM ??? CHLORIDE 105 05/10/10 6:26 AM ??? CO2 31* 05/10/10 6:26 AM ??? BUN 11 05/10/10 6:26 AM ??? CREATININE 0.69 05/10/10 6:26 AM ??? GLUCOSE 86 05/10/10 6:26 AM ??? CA 8.4 05/10/10 6:26 AM ??? ANIONGAP 3 05/10/10 6:26 AM ??? MG 2.1 05/07/10 6:05 AM ??? PHOS 3.7 05/07/10 6:05 AM Last CBC/no differential result Lab Results Component Value Date/Time ??? WBC 6.3 05/06/10 11:00 PM ??? RBC 3.07* 05/06/10 11:00 PM ??? HGB 9.0* 05/06/10 11:00 PM ??? HCT 26.7* 05/06/10 11:00 PM ??? MCV 87.0 05/06/10 11:00 PM ??? MCH 29.5 05/06/10 11:00 PM ??? MCHC 33.9 05/06/10 11:00 PM ??? PLTS 270 05/06/10 11:00 PM ??? RDW 14.4 05/06/10 11:00 PM Assessment 1. Polyuria that has decreased in volume. Appears edematous, and he likely has been having appropriate diuresis of excess volume. Interestingly, urine volume less with reversal of anticoagulation. Coumadin resumed. K stable. On 40 meq/d for now. He persists in gradual negative fluid balance despite less urine output. Plan 1. Would allow pt to autodiurese, and I will cancel order for prn NS. If his urine volume picks up with reanticoagulation, this suggests venous return obstruction. (probably would not investigate, justanticoagulate. ) 2. Continue with K supplementation if urine voluume > 2.5 L/day. 3. I will sign off. Call with questions. Jayna Ambriz MD 05/10/2010, 10:05 PM Bernard Alcantar - 05/10/2010 3:35 PM CDT [facility] Progress Note (Nursing) Identify/Problem(s): Pain;nausea Desired Outcome(s): Pt will be comofrtable. Pt will not be nauseated. Evaluation: Pt has been using REMEDIAL READING TEACHER for headache. He has been sleepy. Pt was nauseated . Zofran was helpful. Plan: Continue REMEDIAL READING TEACHER. Medicate as need for nausea. Bernard Alcantar RN --- End of Report --- Archana Pace - 05/10/2010 11:23 AM CDT [facility] [employer] Department Progress Note Senior Windows Systems Administrator Notes: Initial assessment for spiritual and emotional support needs for pt/family during this hospitalization. Jeff and (Heather) are known to me from previous hospitalization. I met with Jeff and Heather this morning; Jeff is c/o FIELDS after having bath this morning; using REMEDIAL READING TEACHER for pain relief. Heather is hopeful that the replacement of the baclofen pump catheter and the ongoingantibiotics will resolve the ongoing issues Jeff has been dealing with these past 2 weeks. They are hoping to discharge on Saturday and be back home with family for the holiday weekend. Jeff isnot real talkative this morning as he is feeling poorly. He is open to a visit later today or tomorrow when he might be feeling better and not on flat bedrest anymore. They are aware of store host availability. Plan: [employer] will continue following for ongoing spiritual and emotional support to pt/family. Report Completed by: Archana Pace, [facility] Staff Senior Windows Systems Administrator --- End of Report --- Kiko Powell - 05/10/2010 8:34 AM CDT [facility] PROGRESS NOTE DOA: 04/30/2010 1:25 AM DOS: 05/10/2010 SUBJECTIVE: Doing well. Stated headache is better than yesterday. and pt are concerned about de la cruz in placefor some time now (since April 25). Denies fever or chills. OBJECTIVE: VS: BP 120/82 Pulse 92 Temp(Src) 98.1 ??F (36.7 ??C) (Axillary) Resp 18 Ht 5' 10 (1.778 m) Wt 114.352 kg (252 lb 1.6 oz) SpO2 94% General: AAOx3, no apparent distress, pleasant, cooperative HENT: MM moist. CV: RRR, S1 S2 normal, No murmur. Lungs: CTA bilaterally. Abd: Normal bowel sounds, soft, NT/ND, dressing on right side c/d/i Ext & Skin: + edema Current hospital medications Medication Dose Route Frequency ??? acetaminophen (aka TYLENOL) tablet 325-650 mg 325-650 mg Oral Q4H PRN ??? atorvastatin (aka LIPITOR) tablet 40 mg 40 mg Oral Daily ??? baclofen (aka LIORESAL INTRATHECAL) intrathecal 1 mg 1 mcg Intrathecal Continuous ??? baclofen (aka LIORESAL) tablet 20 mg 20 mg Oral QID ??? cefepime (aka MAXIPIME) 2 g in NaCl 0.9 % 100 mL IV piggyback 2 g IV Q12H(NS) ??? citalopram (aka CELEXA) tablet 40 mg 40 mg Oral Daily ??? cyclobenzaprine (aka FLEXERIL) tablet 10 mg 10 mg Oral TID PRN ??? dexamethasone (aka DECADRON) injection 10 mg 10 mg IV SDS ??? docusate sodium (aka ENEMEEZ) enema 283 mg 1 Enema Rectal DAILY PRN ??? gabapentin (aka NEURONTIN) capsule 200 mg 200 mg Oral TID ??? heparin injection 400 Units 4 mL IV BID ? ? heparin injection 400 Units 4 mL IV PRN after every IV medication & lab draw ??? hydrALAZINE (aka APRESOLINE) injection 5 mg 5 mg IV SDS ??? HYDROmorphone (aka DILAUDID) 10 mg in NaCl 0.9 % 50 mL REMEDIAL READING TEACHER syringe IV Titrate ??? iron polysaccharide complex (aka NIFEREX-150) 150-50-50 MG capsule 1 Cap 1 Cap Oral Daily ??? labetalol (aka NORMODYNE) injection 5 mg 5 mg IV SDS ??? lactulose 200 g in sterile water 200 mL rectal 300 mL Rectal ONCE PRN ??? LORazepam (aka ATIVAN) tablet 1 mg 1 mg Oral TID ??? magnesium hydroxide (aka MILK OF MAGNESIA) oral liquid 30 mL 30 mL Oral ONCE PRN ??? metoPROLOL tartrate (aka LOPRESSOR) injection 1-2 mg 1-2 mg IV SDS ??? NaCl 0.9 % infusion 1,000 mL 1,000 mL IV Continuous ? ? NaCl PF 0.9% injection 3-5 mL 3-5 mL IV PRN after every IV medication & lab draw ??? NaCl PF 0.9% injection 4 mL 4 mL IV PRN per Parameters ??? naloxone (aka NARCAN) injection 0.4 mg 0.4 mg IV PRN per Parameters ??? ondansetron (aka ZOFRAN) injection 4 mg 4 mg IV SDS ??? patient's own pump Intrathecal Continuous ??? polyethylene glycol 3350 (aka GLYCOLAX) powder 17 g 17 g Oral Daily ??? potassium chloride (aka K-DUR,KLOR-CON M) extended release tablet 40 mEq 40 mEq Oral Daily ??? povidone-iodine (aka BETADINE) 10 % topical liquid Topical BID ??? senna (aka SENOKOT) tablet 17.2 mg 2 Tab Oral BID ??? vancomycin (aka VANCOCIN) 2,000 mg in NaCl 0.9 % 500 mL IV PIGGYBACK 2 g IV Q12H(NS) DATA: I have reviewed this patient's labs. 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 He was readmitted 04/30 with headache and fevers, found to have neutrophilic pleocytosis, elevated protein and low glucose in the spinal fluid concerning for bacterial meningitis vs post operative chemical meningitis. CSF Cultures (obtained after initiation of antibiotics) are growing Coagulase negative staphylococcus, however, 2 different strains suggesting contamination. 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 ? infected baclofen pump catheter. Afebrile. Infectious dis involved - ct vanco & cefepime per ID recs (Cefepime 2 grams q12 hours through 05/12/10 and Vancomcyin 2 gms q 12 hours). As per Infectious disease, may use oralbactrim one DS BID for the next 30 days after IV abx completed. Vicodin prn for headache. H/o delirium with percocet in past. will need to coordinate OP IV antibiotics once closer to discharge if that needs to be continued - does not have coverage for home IV abx, does not want to go to TCU. Will needto coordinate at clinic / local ER - spring encaser aware & involved. Pt underwent REVISION OF BACLOFEN PUMP CATHETER on 05/09 but pump not changed. F/u fluid c/s. Polyuria - notes polyuria since thoracic spine surgery 04/20/10, prev admission reviewed - UOP was 3000 - 6000 cc / day range starting 04/13/10, UOP 2100 on 04/12 - looks well hydrated inspite of UOP 5000 - 7500 cc / day, getting 1500 cc IVF with bid IV abx. BUN is normal, no clinical e/o dehydration.Serum sodium also normal. No hypercalcemia. No meds that could contribute. ? Excess Po fluid intake vs cerebral salt wasting - U Na is 143. Nephrology on case and this does not appear to be cerebral salt wasting. Fluids changes as per nephro Chronic DVT - s/p indwelling IVC filter since 1999. Coumadin on hold for surgery. Restart coumadin once okay with surgery. Dyslipidemia: on statins Chronic constipation & neurogenic bladder - was doing straight cath in past but since recent discharge 04/20, had large urine volumes & discomfort in between caths. Send u/a and change de la cruz catheter. bowel regimen QOD - Prophylaxis: coumadin if okay with NSY - F/U: Fluid c/s, cbc, u/a in am Kiko Powell MD [facility] Hospitalist Pager: [phone] TT spent >35 min and 50% in CC of above issues which includes review of EPIC including notes/labsand imaging, discussion of care plan with pt and time spent in documentation on the pt's floor today. Merced Snowden RN - 05/10/2010 3:44 AM CDT [facility] Progress Note (Nursing) Identify/Problem(s): Post op status Comfort Desired Outcome(s): Patient will have stable post op course Patient will be comfortable Evaluation: Patient a/o x4, neuros and cms intact. PERRLA. VSS, BP low @ 0000 98/65, re- check @ 0400 111/68. Reported that pain is adequately managed with REMEDIAL READING TEACHER pump at 0.2/0.2/q15m lockout. Per report patient's HOBok to be < 20 degrees. Currently at about 10 degrees. Supine at start of shift. Turned via log roll x1 with thin pillows slightly under back to shift weight. Returned to supine toward end of shift. Patient was not positioned on side. De La Cruz patent with dark yellow output, odorous, 450ml out this shift. BS hypoactive, denies nausea. Unable to draw am lab from PICC. Extreme pressure when flushing line, had no return when attempted to draw back blood. Lab helen am BMP. BP 98/65 Pulse 87 Temp(Src) 98.5 ??F (36.9 ??C) (Oral) Resp 16 Ht 5' 10 (1.778 m) Wt 114.443 kg (252 lb 4.8 oz) SpO2 100% Plan: Continue to monitor post op status and comfort level Merced Snowden RN --- End of Report --- Ozzy Dietz - 05/09/2010 11:58 PM CDT [facility] Progress Note (Nursing) Identify/Problem(s): Post-op Desired Outcome(s): Stable post-op status Evaluation: Pt alert & oriented x4. POD#0 for Revision of Baclofen Pump Catheter. Rating pain 5-7/10. Dilaudid for pain given. REMEDIAL READING TEACHER dilaudid started this evening .2mg bumps q 15mins & .2mg basal. Pt's pain better relieved with own pain med control rating it @ 0/10. Pt on strict bedrest. Bed elevated 20 degrees on arrival from OR & pt states that's how its been though orders state flat in bed. BS hypo, clear liquids for dinner, pt tolerated okay. De La Cruz in place, patent & draining large amounts. Patient Vitals in the past 8 hrs: BP Temp Temp src Pulse Resp SpO2 Height Wt - Scale 05/09/102027 120/82 mmHg 97.8 ??F (36.6 ??C) Oral 88 18 98 % - - 05/09/10 1849 127/78 mmHg - - 87 18 97 % - - 05/09/10 1730 117/76 mmHg 97.8 ??F (36.6 ??C) Oral 81 18 98 % - - 05/09/10 1700 129/83 mmHg - - 90 18 98 % - - 05/09/10 1630 135/92 mmHg 97.6 ??F (36.4 ??C) Oral 90 18 98 % - - Plan: Continue to monitor. Ozzy Dietz RN --- End of Report --- Oseas Moura - 05/09/2010 7:45 PM CDT [facility] ID Progress Note Date of service: 05/09/2010 Diagnosis: Spinal ependymoma, paraplegia and baclofen pump placement, S/P Thoracic spinal ependymomarepair (04/11), Headache and Fevers, Presumed bacterial meningitis Subjective: Resting comfortably, tolerated baclofen pump catheter replacement well, had the pump recalibrated by the PM&R automation consultant this afternoon, tolerating combination of IV vancomycin and cefepime well. Objective: Patient Vitals in the past 24 hrs: BP Temp Temp src Pulse Resp SpO2 Height Wt - Scale 05/09/10 1849 127/78 mmHg - - 87 18 97 % - - 05/09/10 1730 117/76 mmHg 97.8 ??F (36.6 ??C) Oral 81 18 98 % - - 05/09/10 1700 129/83 mmHg - - 90 18 98 % - - 05/09/10 1630 135/92 mmHg 97.6 ??F (36.4 ??C) Oral 90 18 98 % - - 05/09/10 1606 145/96 mmHg 97.5 ??F (36.4 ??C) Oral 88 18 100 % - - 05/09/10 1525 121/75 mmHg - - 91 10 96 % - - 05/09/10 1516 117/74 mmHg - - 89 10 95 % - - 05/09/10 1505 131/80 mmHg - - 93 13 96 % - - 05/09/10 1455 128/81 mmHg - - 98 13 97 % - - 05/09/10 1445 129/80 mmHg - - 99 15 98 % - - 05/09/10 1435 124/78 mmHg 97.6 ??F (36.4 ??C) Oral 100 20 98 % - - 05/09/10 1422 128/79 mmHg 96 ??F (35.6 ??C) Tympanic 102 14 98 % - - 05/09/10 0731 144/91 mmHg 97.6 ??F (36.4 ??C) Oral 88 16 98 % - - 05/09/10 0400 143/85 mmHg - - 91 - - - - 05/08/10 2300 153/104 mmHg 97.7 ??F (36.5 ??C) Oral 90 16 97 % - - 05/08/10 2000 98/64 mmHg 97.5 ??F (36.4 ??C) Oral 89 18 98 % - - PEx: Heart: RRR, S1/S2 normal, no murmur, gallop or rub Lungs: Clear to auscultation with good air movement Abdomen: Normal active bowels sounds, soft, nontender. No organomegaly. RLQ with intact dressing over baclofen pump pocket. Extremities: Normal bulk and tone. Skin: No rash Lab Results (last 3): Lab Results Component Value Date/Time ??? WBC 6.3 05/06/10 11:00 PM ??? WBC 6.8 05/01/10 6:15 AM ??? WBC 8.9 04/30/10 6:19 AM ??? RBC 3.07* 05/06/10 11:00 PM ??? RBC 2.89* 05/01/10 6:15 AM ??? RBC 3.20* 04/30/10 6:19 AM ??? HGB 9.0* 05/06/10 11:00 PM ??? HGB 8.6* 05/01/10 6:15 AM ??? HGB 9.7* 04/30/10 6:19 AM ??? HCT 26.7* 05/06/10 11:00 PM ??? HCT 25.6* 05/01/10 6:15 AM ??? HCT 27.9* 04/30/10 6:19 AM ??? MCV 87.0 05/06/10 11:00 PM ??? MCV 88.7 05/01/10 6:15 AM ??? MCV 87.2 04/30/10 6:19 AM ??? BUN 7 05/08/10 7:00 AM ??? BUN 9 05/06/10 11:00 PM ??? BUN 10 04/30/10 6:19 AM ??? CREATININE 0.63* 05/08/10 7:00 AM ??? CREATININE 0.70 05/06/10 11:00 PM ??? CREATININE 0.70 05/04/10 4:00 AM Diagnostic Impression: Spinal ependymoma, paraplegia and baclofen pump placement, S/P Thoracic spinal ependymoma repair (04/11), Headache and Fevers, Presumed bacterial meningitis Clinically stable, afebrile and with a normal WBC. I reviewed Dr. Garcia's last note, and agree with her plan to complete IV cefepime and vancomycin therapy on 05/12/10, provided subsequent intraoperative cultures obtained earlier today remain negative. 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 Thus replacement of suspected prosthetic devices is the main therapeutic intervention. However in view of proximity to the central nervous system we could consider extending his course of antibiotic therapy as a precaution. Potentially we could complete his IV regimen this coming Saturday, and then cont inue with maintenance therapy using oral Bactrim one DS tablet BID for the next 30 days. Recommendation/Plan: 1) Continue current antibiotic regimen, but consider above adjustments.. 2) Please call if further questions arise. Oseas Moura MD Report Completed by: Oseas Moura MD --- End of Report --- Martha Thomas - 05/09/2010 5:19 PM CDT [facility] PM&R Progress Note () Date of service: 05/09/2010 Diagnosis: Encounter Diagnoses Code Name Primary? 784.0 Headache Yes ??? 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 780.60BQ Fever ??? 728.85T Muscle Spasticity ??? 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 53460 CAREPLAN: BACLOFEN ??? 564.81 Neurogenic Bowel ??? 453.40U DVT (Deep Venous Thrombosis) ??? 596.54AL Neurogenic Bladder ??? 788.42 Polyuria Patient Active Hospital Problem List: Ependymoma (03/29/2010) Fever (05/04/2010) Probable Bacterial Meningitis (05/04/2010) DVT (Deep Venous Thrombosis) () s/p IVC filter placed in 1999, also on coumadin since 1999. 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 SUBJECTIVE: No new problems, patient denies any pain, some discomfort in the Lower back area. He hashad some spasms, difficult to tolerate the oral baclofen for him, he remains very sleepy. Patient has been having BM regularly q other day. No other issues. Underwent surgery today for catheter replacement, intrathecal baclofen was removed and replaced [id number] of baclofen. . OBJECTIVE: Patient Vital Signs in the past 24 hrs: Height Wt - Scale Temp Temp src Pulse BP Resp SpO2 Oximetry Done On 05/09/10 1630 - - 97.6 ??F (36.4 ??C) Oral 90 135/92 mmHg 18 98 % O2 05/09/10 1606 - - 97.5 ??F (36.4 ??C) Oral 88 145/96 mmHg 18 100 % O2 05/09/10 1525 - - - - 91 121/75 mmHg 10 96 % O2 05/09/10 1516 - - - - 89 117/74 mmHg 10 95 % O2 05/09/10 1505 - - - - 93 131/80 mmHg 13 96 % O2 05/09/10 1455 - - - - 98 128/81 mmHg 13 97 % O2 Gen: No acute distress, alert and oriented times 3, affect is normal Lungs: Lungs clear bilaterally CV: Regular rate and rhythm Abd: Abdomen soft, nondistended, nontender Extremities: edematous Neuromuscular: paraplegia, noted abd spasms, no leg spasms, tone 0/4. UE normal strength, laying flat after surgery. Data: Patient Stool in the past 24 hrs: Stool 05/08/101999 Large;Liquid;Uses Bathroom No data found. Labs: Lab Results Component Value Date/Time ??? INR 1.4 05/09/10 3:59 AM ??? SODIUM 141 05/08/10 7:00 AM ??? K 4.0 05/08/10 7:00 AM ??? BUN 7 05/08/10 7:00 AM ??? CREATININE 0.63* 05/08/10 7:00 AM ??? GLUCOSE 90 05/08/10 7:00 AM ??? HGB 9.0* 05/06/10 11:00 PM ??? PLTS 270 05/06/10 11:00 PM Procedure note: Pump was interrogated today. 05/09/2010 Baclofen concentration 1,000 mcg/ml (reviewed and confirmed by pharmacy orders) Infusion mode: simple continuous Dose per day: 249.8 mcg/ day. Pump was updated and reprogrammed: total volume: 40ml of intrathecal baclofen concentration of 1,000mcg/ml. Simple continuous mode. Dose per day: 249.8 mcg/ day Alarms enabled. 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 Underwent Revision of baclofen pump catheter with removal of intrathecal baclofen and refill of pump on 05/09/2010. Plan: 1. Cont with current dose of Intrathecal baclofen. Next refill date (before) 10/10/2010. He can follow up with his primary rehab MD. 2. Will taper off oral baclofen slowly; baclofen 20mg TID x 2 days, then 20 mg BID x 2 days, then 10mg BID x 2 days, then 10mg at HS x 2 days and then discontinue. 3. Cont with current Bowel regimen. 4. Case discussed with ID for duration of antibiotic therapy. Follow cultures and consider at least 2 week treatment. Thank you. Total time: 25min. Counseling and Coordination time: 20min . Martha South MD --- End of Report --- Bernard Alcantar - 05/09/2010 3:06 PM CDT [facility] Progress Note (Nursing) Identify/Problem(s): Pain Desired Outcome(s): Pt will be comfortable Evaluation: Pt has been off floor since 1100. Prior to leaving did not c/o pain. Plan: Medicate if needed for pain. Bernard Alcantar RN --- End of Report --- Bernard Alcantar - 05/09/2010 3:05 PM CDT [facility] Nursing Pre-Op Note Admission Date/Time: 04/30/2010 1:25 AM Time of transport to the Operating Room: 1110 Transported by: Wheelchair Pre-Op checklist complete?: yes Report Completed by: Bernard Alcantar RN --- End of Report --- Jayna Ambriz - 05/09/2010 2:42 PM CDT Renal staff Pt off floor for OR. I's and O's not up to date. No hypotension noted. Have ordered chem8 for am and will assess volume status at that time. Jayna Ambriz MD 05/09/2010, 2:43 PM Tania Brantley - 05/09/2010 12:37 PM CDT [facility] Care Management Identification Technician Follow Up Note Admission Date/Time: 04/30/2010 1:25 AM Attending MD: Maurice Baron Date Chart reviewed; discussed with interdisciplinary team and with patient and family. Coordination of Care: Provided patient/family with options for dc planning. Barriers to Discharge: patient continues to require acute medical care Updated Assessment Discussed plan of care with NS team this am. Plan: OR today to change baclofen pump catheter. If pump looks infected at time of surgery, it may be decided to remove pump. If all goes okay, pt will likely need to be in hospital few more days for monitoring and to get baclofen pump to theraputic range for good pain management for pt. Was told Pt will still need IV Vanco and IV Cefepime Q12 hours through May 12May 18. I met with pt and his to inform them I am still following and assisting with dc planning. I let them know I will be contacting pt's primary MD today to discuss whether she would be willing to take over care and write orders for IV infusions for the [address] while ptin need of iv therapy. They are confident Dr. Mcmahan would do this. Pt going to OR today. I informed pt and I will meet up with them tomorrow to discuss dc plan. I called pt's primary clinic this afternoon. Was told both Dr. Mcmahan and her nurse are off today and they will be in tomorrow. I will need to call again tomorrow in hopes of speaking with either of them to discuss pt's dc needs. Updated bedside RN with above information. Call with questions. Updated Plan of Care Anticipated Discharge Date: 05/12 Anticipated Discharge Plan: home with outpt iv abx. Plan for Follow Up: in am Report completed by Tania Brantley RN, Pager Number [phone] --- End of Report --- Kiko Powell - 05/09/2010 8:56 AM CDT [facility] MEDICINE PROGRESS NOTE Patient: Jie Cullen : 1945 SUBJECTIVE: Doing well, but has a headache. No fever / chills. Had just come back for OR today. OBJECTIVE: VS: BP 143/85 Pulse 91 Temp(Src) 97.7 ??F (36.5 ??C) (Oral) Resp 16 Ht 5' 10 (1.778 m) Wt114.443 kg (252 lb 4.8 oz) SpO2 97% UOP this admit : 5000 - 7000 cc / day General: AAOx3, no apparent distress, pleasant, cooperative HENT: MM moist. CV: RRR, S1 S2 normal, No murmur. Lungs: CTA bilaterally. Abd: Normal bowel sounds, soft, NT/ND, dressing on right side c/d/i Ext & Skin: no c / c / rash / edema. Current hospital medications ??? acetaminophen (aka TYLENOL) tablet 325-650 mg ??? atorvastatin (aka LIPITOR) tablet 40 mg ??? baclofen (aka LIORESAL INTRATHECAL) intrathecal 1 mg ??? baclofen (aka LIORESAL) tablet 20 mg ??? cefepime (aka MAXIPIME) 2 g in NaCl 0.9 % 100 mL IV piggyback ??? citalopram (aka CELEXA) tablet 40 mg ??? cyclobenzaprine (aka FLEXERIL) tablet 10 mg ??? dexamethasone (aka DECADRON) injection 10 mg ??? docusate sodium (aka ENEMEEZ) enema 283 mg ??? FENTanyl (aka SUBLIMAZE) injection 12.5-50 mcg ??? gabapentin (aka NEURONTIN) capsule 200 mg ??? gentamicin 80 mg in NaCl 0.9 % 1,000 mL ??? heparin injection 400 Units ??? heparin injection 400 Units ??? hydrALAZINE (aka APRESOLINE) injection 5 mg ??? hydrocodone-acetaminophen (aka VICODIN,LORTAB) 5-500 MG tablet 1-2 Tab ??? HYDROmorphone (aka DILAUDID) injection 0.1-0.2 mg ??? HYDROmorphone (aka DILAUDID) injection 0.5-1 mg ??? iron polysaccharide complex (aka NIFEREX-150) 150-50-50 MG capsule 1 Cap ??? labetalol (aka NORMODYNE) injection 5 mg ??? lactulose 200 g in sterile water 200 mL rectal ??? LORazepam (aka ATIVAN) tablet 1 mg ??? magnesium hydroxide (aka MILK OF MAGNESIA) oral liquid 30 mL ??? meperidine (aka DEMEROL) injection 12.5-50 mg ??? metoPROLOL tartrate (aka LOPRESSOR) injection 1-2 mg ??? NaCl 0.9 % infusion 1,000 mL ??? NaCl PF 0.9% injection 3-5 mL ??? NaCl PF 0.9% injection 4 mL ??? ondansetron (aka ZOFRAN) injection 4 mg ??? patient's own pump ??? polyethylene glycol 3350 (aka GLYCOLAX) powder 17 g ??? potassium chloride (aka K-DUR,KLOR-CON M) extended release tablet 40 mEq ??? povidone-iodine (aka BETADINE) 10 % topical liquid ??? senna (aka SENOKOT) tablet 17.2 mg ??? skin protectant (aka LANTISEPTIC) ointment 1 Squirt ??? vancomycin (aka VANCOCIN) 2,000 mg in NaCl 0.9 % 500 mL IV PIGGYBACK Labs: reviewed by me. 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 He was readmitted 04/30 with headache and fevers, found to have neutrophilic pleocytosis, elevated protein and low glucose in the spinal fluid concerning for bacterial meningitis vs post operative chemical meningitis. CSF Cultures (obtained after initiation of antibiotics) are growing Coagulase negative staphylococcus. 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 ? infected baclofen pump catheter. Afebrile. Infectious dis involved - ct vanco & cefepime per ID recs (Cefepime 2 grams q12 hours through 05/12/10 and Vancomcyin 2 gms q 12 hours. Will continue this through the baclofen pump catheter removal and for 72 hours afterwards). Vicodin prn for headache. H/o delirium with percoc et in past. will need to coordinate OP IV antibiotics once closer to discharge - does not have coverage for home IV abx, does not want to go to TCU. Will need to coordinate at clinic / local ER - spring encaser aware & involved. Today pt underwent REVISION OF BACLOFEN PUMP CATHETER but pump not changed. F/u fluid c/s. Polyuria - notes polyuria since thoracic spine surgery 04/20/10, prev admission reviewed - UOP was 3000 - 6000 cc / day range starting 04/13/10, UOP 2100 on 04/12 - looks well hydrated inspite of UOP 5000 - 7500 cc / day, getting 1500 cc IVF with bid IV abx. BUN is normal, no clinical e/o dehydration.Serum sodium also normal. No hypercalcemia. No meds that could contribute. ? Excess Po fluid intake vs cerebral salt wasting - U Na is 143. Nephrology on case and this does not appear to be cerebral salt wasting. 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 Coumadin on hold for surgery. Restart coumadin once okay with surgery. Dyslipidemia: on statins Chronic constipation & neurogenic bladder - was doing straight cath in past but since recent discharge 04/20, had large urine volumes & discomfort in between caths. ct indwelling de la cruz. bowel regimen QOD Time spent with patient was 35 minutes, over 50% of which was spent in counseling and coordinating care. Updated at bedside. Kiko Powell MD Pager: [phone] DOS: 05/09/2010 Filomena Diaz RN - 05/09/2010 4:57 AM CDT [facility] Progress Note (Nursing) Identify/Problem(s): Safety Comfort Desired Outcome(s): Patient will be hemodynamically stable and state pain within tolerable limits. Evaluation: A/o x 4, turning Q2H and will have baclofen pump cath changed at 1120, Hibiclens are done. Picc lineis getting harder to draw blood from, can still infuse fluids.Has been Npo since 0000, had small green emesis at 2300, no further emesis. Plan: Cont to monitor Filomena Diaz RN --- End of Report --- AT Dulce Palafox - 05/08/2010 9:39 PM CDT [facility] Progress Note (Nursing) Identify/Problem(s): Comfort Desired Outcome(s): Patient will remain comfortable Evaluation: Patient denies headache or other pain. Repositioned in bed for comfort. Patient up to bathroom with assist of 2 and the wheelchair. He had a large soft BM. De La Cruz continues to have large output- see flowsheet. Dressing changed, per order, skin around incision is red. Evening Hibiclens bath done. Plan: Continue to monitor comfort Dulce Palafox RN --- End of Report --- Priti Hickey - 05/08/2010 4:11 PM CDT [facility] Progress Note (Nursing) Identify/Problem(s): Skin integrity Coping Alteration in urination Desired Outcome(s): Will have improving skin integrity Will cope with hospital illness and upcoming surgery Will have normal urine output Evaluation: Wound on back appears to be less red, healing. Surgeon looked at it today, spoke with family about upcoming plans for surgery tomorrow. Patient appears apprehensive. Has been more drowsy today, wanted to know if Baclofen pump was being decreased. PM&R MDs called. They called back stating the pump dose would not be decreased today. High urine output volumes in hospital and patient states this was so before he came to the hospital.This was why he could not manage to do the self cath program at home. Plan: Wound cares, I&O, offer support and answer questions for family Priti Hickey RN --- End of Report --- Poonam Wallace - 05/08/2010 12:00 PM CDT [facility] MEDICINE PROGRESS NOTE Date of Service : 05/08/2010 Patient: Jie Cullen : 1945 SUBJECTIVE: Doing well. No fever / chills. PO fair. Scheduled for surgery tomorrow - baclofen pump catheter removal, US & potential aspiration of fluid near thoracic spine. OBJECTIVE: VS: BP 123/75 Pulse 82 Temp(Src) 97.4 ??F (36.3 ??C) (Oral) Resp 18 Ht 5' 10 (1.778 m) Wt252 lb 4.8 oz (114.443 kg) SpO2 95% UOP this admit : 5000 - 7000 cc / day ! General: AAOx3, no apparent distress, pleasant, cooperative HENT: MM moist. CV: RRR, S1 S2 normal, No murmur. Lungs: CTA bilaterally. Abd: Normal bowel sounds, soft, NT/ND. Ext & Skin: no c / c / rash / edema. BACK : incision c / d / I. Fluctuation on right lateral aspect of upper thoracic spine, no erythema / warmth / tenderness. 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 He was readmitted 04/30 with headache and fevers, found to have neutrophilic pleocytosis, elevated protein and low glucose in the spinal fluid concerning for bacterial meningitis vs post operative chemical meningitis. CSF Cultures (obtained after initiation of antibiotics) are growing Coagulase negative staphylococcus. 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 ? infected baclofen pump catheter. Afebrile. - removal of baclofen pump / catheter tomorrow per neurosurgery - infectious dis involved - ct vanco & cefepime per ID recs - vicodin prn for headache. H/o delirium with percocet in past. - will need to coordinate OP IV antibiotics once closer to discharge - does not have coverage for home IV abx, does not want to go to TCU. Will need to coordinate at clinic / local ER - spring encaser aware & involved. Polyuria - notes polyuria since thoracic spine surgery 04/20/10, prev admission reviewed - UOP was 3000 - 6000 cc / day range starting 04/13/10, UOP 2100 on 04/12 - looks well hydrated inspite of UOP 5000 - 7500 cc / day, getting 1500 cc IVF with bid IV abx - BUN is normal, no clinical e/o dehydration. Serum sodium also normal. No hypercalcemia. No meds that could contribute. ? Excess Po fluid intake vs cerebral salt wasting - U Na is 143 - nephrology consult - d/w Dr Ambriz Chronic DVT - s/p indwelling IVC filter since 1999 - coumadin on hold for surgery tomorrow - monitor INR Chronic constipation & neurogenic bladder - was doing straight cath in past but since recent discharge 04/20, had large urine volumes & discomfort in between caths. - ct indwelling de la cruz - bowel regimen QOD Time spent with patient was 35 minutes, over 50% of which was spent in counseling and coordinating care. Updated at bedside. Poonam Wallace MD [phone] Geetha Osuna - 05/08/2010 11:15 AM CDT [facility] NeuroSurgery Progress Note 05/08/2010 Vitals Temp (24hrs), Min:97.4 ??F (36.3 ??C), Max:98.8 ??F (37.1 ??C) No Data Recorded Exam Sitting on edge of bed Incision improving, intact, no drainage noted Pain is well controlled Afebrile Labs Lab Results Component Value Date/Time ??? SODIUM 141 05/08/10 7:00 AM ??? HGB 9.0* 05/06/10 11:00 PM ??? PROTIME 18.2* 05/08/10 7:00 AM ??? INR 1.5 05/08/10 7:00 AM ??? CSFRBC 626 04/30/10 11:00 AM ??? CSFWBC 3135* 04/30/10 11:00 AM ??? CSFLYMPH 9 04/30/10 11:00 AM ??? CSFGLUCOSE 32* 04/30/10 11:00 AM ??? 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 Continues to have low grade fevers, hx ofDVT, on coumadin. Plan at bedside, updated, questions answered Appreciate Medicine and ID Continue antibiotics Hold Lovenox Plan for OR in am, scheduled at 11:30 (replace Baclofen pump catheter) Will check INR and PTT early am, FFP if needed in am NPO after Midnight Activity as tolerated Geetha Osuna RN Neurosurgery Nurse Clinician [phone] I, Geetha Osuna RN, am serving as a scribe to document services personally performed by Dr. Maurice Baron. All data has been reviewed by Dr. Maurice Baron. --- End of Report --- Maurice Baron - 05/08/2010 11:15 AM CDT I have examined the patient and reviewed the plan of care and agree with the previous note. Maurice Baron MD 05/16/2010, 5:11 AM Tena Jasso - 05/08/2010 5:59 AM CDT [facility] Progress Note (Nursing) Identify/Problem(s): Comfort Desired Outcome(s): Pt will be comfortable Evaluation: Pt is A&O, no c/o pain. Comfortable. Sleeping all night, is at bedside. Plan: Continue to monitor Tena Jasso RN --- End of Report --- AT Tena Jasso - 05/08/2010 4:59 AM CDT Problem: Falls Risk Goal: Low Risk (0-4): Fall Prevention I applied all active low risk falls prevention interventions. Bernard Alcantar - 2010 11:11 PM CDT [facility] Progress Note (Nursing) Identify/Problem(s): Pain Desired Outcome(s): Pt will be comfortable. Evaluation: Pt c/o headache. Tylenol not effective. He received 2 vicodin with good relief. Plan: Medicate as needed for pain. Bernard Alcantar RN --- End of Report --- Priti Hickey - 2010 5:43 PM CDT [facility] Progress Note (Nursing) Identify/Problem(s): Pain Coping Skin integrity Mobility Desired Outcome(s): Will have relief of pain Will have assistance with coping with hospital illness Will have improving surgical wound site Will have increased mobility Evaluation: No complaints of headache today. Back wound is tender on the upper left side, dressing changed per directions, cleaned with Betadine. Wound appears less red, and swollen today. Patient's birthday today. Many visitors. Patient appears somewhat anxious I just want to go home. Physicians here, discussing plans. Coumadin discontinued today, Lovenox started. P.O. Baclofen increased by MD. Thayer at bedside, sitting up to eat. Transfers with sliding board and assist of 3 persons to and from wheelchair. Plan: Continue offering reassurance, pain management, wound care and dressing changes Priti Hickey RN --- End of Report --- Priti Hickey - 2010 5:43 PM CDT Problem: Falls Risk Goal: Moderate Risk (5-10): Fall Prevention I applied all active moderate risk falls prevention interventions. Poonam Wallace - 2010 11:53 AM CDT [facility] MEDICINE PROGRESS NOTE Date of Service : 2010 Patient: Jie Cullen : 1945 SUBJECTIVE: Doing well. No fever / chills.PO fair. Had good BM yest. Drinking lots of fluids PO. reports high Urine OP since discharge after surgery 04/20/10 - unable to keep up with straight cath alone due to high urine volumes, indwelling de la cruz since then. OBJECTIVE: VS: BP 139/67 Pulse 95 Temp(Src) 98.1 ??F (36.7 ??C) (Oral) Resp 18 Ht 5' 10 (1.778 m) Wt113.7 kg (250 lb 10.6 oz) SpO2 96% Last 24 Hour Accucheck Glucose Results: Recent Labs Basename 05/06/10 0730 05/05/10205205/05/10 1719 ??? GLWB 108 145 125 UOP this admit : 5000 - 7000 cc / day ! General: AAOx3, no apparent distress, pleasant, cooperative HENT: MM moist. CV: RRR, S1 S2 normal, No murmur. Lungs: CTA bilaterally. Abd: Normal bowel sounds, soft, NT/ND. Ext & Skin: no c / c / rash / edema. 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 He was readmitted 04/30 with headache and fevers, found to have neutrophilic pleocytosis, elevated protein and low glucose in the spinal fluid concerning for bacterial meningitis vs post operative chemical meningitis. CSF Cultures (obtained after initiation of antibiotics) are growing Coagulase negative staphylococcus. 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 ? infected baclofen pump catheter. T max 98.8 - probable removal of baclofen pump early next week per neurosurgery - infectious dis involved - ct vanco & cefepime per ID recs - vicodin prn for headache. H/o delirium with percocet in past. - will need to coordinate OP IV antibiotics once closer to discharge - does not have coverage for home IV abx, does not want to go to TCU. Will need to coordinate at clinic / local ER Polyuria - looks well hydrated inspite of UOP 5000 - 7000 cc / day, getting IVF with bid IV abx - monitor lytes with high UOP - check U osm, U Na, Posm Chronic DVT - s/p indwelling IVC filter since 1999 - coumadin - monitor INR Chronic constipation & neurogenic bladder - was doing straight cath in past but since recent discharge 04/20, had large urine volumes & discomfort in between caths. - ct indwelling de la cruz - bowel regimen QOD Time spent with patient was 35 minutes, over 50% of which was spent in counseling and coordinating care. Updated at bedside. Poonam Wallace MD [phone] Tena Jasso - 2010 3:52 AM CDT [facility] Progress Note (Nursing) Identify/Problem(s): Comfort Desired Outcome(s): Pt will be comfortable Evaluation: Pt is A&O, no c/o pain or FIELDS. De La Cruz probably was kinked and was backing up and leaked around. is staying in the room. Pt slept through the whole night. K+ is 3.3 and Hgb 9. [facility] RN --- End of Report --- AT Tena Jasso - 2010 3:43 AM CDT Problem: Falls Risk Goal: Moderate Risk (5-10): Fall Prevention I applied all active moderate risk falls prevention interventions. AT Tena Jasso - 05/06/2010 10:15 PM CDT Problem: Falls Risk Goal: Moderate Risk (5-10): Fall Prevention I applied all active moderate risk falls prevention interventions. Priti Hickey - 05/06/2010 7:11 PM CDT Problem: Falls Risk Goal: Moderate Risk (5-10): Fall Prevention I applied all active moderate risk falls prevention interventions. Priti Hickey - 05/06/2010 5:57 PM CDT [facility] Progress Note (Nursing) Identify/Problem(s): Skin integrity Mobility Bowel regime Alteration in urination Desired Outcome(s): Will have healing wound; will have assistance with mobility and be up in wheelchair more during the day; will have BM, will have de la cruz cath care Evaluation: Wound sutured with tacking thoracic area, multiple ABX through PICC RUE Dressing changed, wound red,firm. Paraplegic Dangle w/assist, WC with slide board, assist x 2-3 and transfer belt Bowel program today, 05/06/2010 lactulose and docusate sodium enema (enemeez) Needs a bowel program every other day. Next due: May 08 Patient states he has a chronic De La Cruz catheter. Had attempted to straight cath at home but was unsuccessful so had the indwelling catheter placed (at clinic?). States he had Bowel program: Took lactulose at 1500, then up to his chair with slide board assist 3 and to toilet. Received enemeez at 1650. Sat on toilet for some time. Large BM. De La Cruz is chronic. Had failed straight cathing at home and had De La Cruz placed. Stated De La Cruz placed three weeks ago. Large amount of urine from De La Cruz. asked for electrolytes to be checked, called and labs ordered for the morning. BP 135/93 Pulse 92 Temp(Src) 97.8 ??F (36.6 ??C) (Oral) Resp 16 Ht 5' 10 (1.778 m) Wt 115.758 kg (255 lb 3.2 oz) SpO2 97% Plan: Continue plan of care. Priti Hickey RN --- End of Report --- Poonam Wallace - 05/06/2010 12:12 PM CDT [facility] MEDICINE PROGRESS NOTE Date of Service : 05/06/2010 Patient: Jie Cullen : 1945 SUBJECTIVE: Only mild headache last hs, relieved with po vicodin. No chills / sweats. PO fair. No BM yet. OBJECTIVE: VS: BP 139/75 Pulse 92 Temp(Src) 98 ??F (36.7 ??C) (Oral) Resp 18 Ht 5' 10 (1.778 m) Wt 115.758 kg (255 lb 3.2 oz) SpO2 97% Last 24 Hour Accucheck Glucose Results: Recent Labs Basename 05/06/10 0730 05/05/10205205/05/10 1719 ??? GLWB 108 145 125 General: AAOx3, no apparent distress, pleasant, cooperative HENT: PERRL. MM moist. CV: RRR, S1 S2 normal, No murmur. Lungs: CTA bilaterally. Abd: Normal bowel sounds, soft, NT/ND. Ext & Skin: no c / c / rash / edema. 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 He was readmitted 04/30 with headache and fevers, found to have neutrophilic pleocytosis, elevated protein and low glucose in the spinal fluid concerning for bacterial meningitis vs post operative chemical meningitis. CSF Cultures (obtained after initiation of antibiotics) are growing Coagulase negative staphylococcus. 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 ? infected baclofen pump catheter. T max 98.8 - probable removal of baclofen pump early next week per neurosurgery - infectious dis involved - ct vanco & cefepime per ID recs - counselled patient & re trying PO pain meds for headache. H/o delirium with percocet in past. Chronic DVT - s/p indwelling IVC filter since 1999 - coumadin - monitor INR Chronic constipation & neurogenic bladder - ct indwelling de la cruz - bowel regimen - counselled re Suppository & enema prn Time spent with patient was 35 minutes, over 50% of which was spent in counseling and coordinating care. Updated at bedside. Poonam Wallace MD [phone] Priti Hickey - 05/06/2010 11:02 AM CDT [facility] Progress Note (Nursing) Identify/Problem(s): Comfort Desired Outcome(s): Will be comfortable Evaluation: BP 139/75 Pulse 92 Temp(Src) 98 ??F (36.7 ??C) (Oral) Resp 18 Ht 5' 10 (1.778 m) Wt 115.758 kg (255 lb 3.2 oz) SpO2 97% Vicodin for headache this afternoon. Headache relieved but felt lightheaded while in the bathroom sitting on the toilet. Dizziness relieved when he got off toilet and was out of the warm bathroom. Plan: Continue plan of care. Priti Hickey RN --- End of Report --- Markos Ford - 05/06/2010 2:14 AM CDT [facility] Progress Note (Nursing) Identify/Problem(s): Comfort Pain Desired Outcome(s): pt will have adequate pain relief. Evaluation: pt is lert denies pain c/o FIELDS and medicated with tylenol fred fatigue dizzyness.n good family support. De La Cruz is patent with yellow color urine PICC the R a/c. 2 + edema at the lower ext with good family support. Afebrile. current hgb is 8,;6. Plan: Will monitor the pt. Markos Ford --- End of Report --- Carolina Baca - 05/05/2010 8:25 PM CDT [facility] Progress Note (Nursing) Identify/Problem(s): pain Wound Desired Outcome(s): Will achieve good pain control Promote wound healing Evaluation: Pt took vicodin for headache rated 4/10 with reported fair relief, denies nausea ; back incision dressing changed/paint with betadine ( was available during dressing changed), skin around remains red and firm, incision intact no drainage noted, per back remains the same, redness and firmnessremains the same, it's not going down and it's not getting bigger as well ; pt rctania vergara Plan: Cont with wound cares ; manage headache ; Discussed plan of care with patient and family. Carolina Baca RN --- End of Report --- Elise Briseno - 05/05/2010 6:37 PM CDT [facility] Progress Note (Nursing) [id number] Identify/Problem(s): Wound healing Desired Outcome(s): Will have optimal wound healing. Evaluation: Incision swollen and slightly red at proximal end. Dressing changed x1 with betadine and abd/medipore. Pt denied pain this shift, no PRNs given. Up to w/c with assist x2 and SBA x1, pt up for long period of time. Turning pt while in bed. Elevating legs for +2 pitting edema, SL this afternoon. A/O x4. Large amt UO from de la cruz; clear, yellow. Started Coumadin and PO Baclofen this afternoon. Plan: Cont to complete BID dressing changes. Monitor wound for changes. Discussed plan of care with patient, family and provider. Elise Briseno RN --- End of Report --- Martha Thomas - 05/05/2010 4:43 PM CDT [facility] PM&R Progress Note () Date of service: 05/05/2010 Diagnosis: Patient Active Hospital Problem List: Ependymoma (03/29/2010) Fever (05/04/2010) Probable Bacterial Meningitis (05/04/2010) DVT (Deep Venous Thrombosis) () s/p IVC filter placed in 1999, also on coumadin since 1999. 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 SUBJECTIVE: No new problems, doing better, has been sitting up in the candel[place] for 2 hours.Patient reports decreased and stable spasms in bilat LE and no abd spasms. . and patient reported that his current bowel program is working well. OBJECTIVE: Patient Vital Signs in the past 24 hrs: Height Wt - Scale Temp Temp src Pulse BP Resp SpO2 Oximetry Done On 05/05/10 1553 - - 98.8 ??F (37.1 ??C) Oral 98 132/85 mmHg 16 96 % RA 05/05/10 1200 - - 98.5 ??F (36.9 ??C) Oral 97 109/68 mmHg 16 97 % RA 05/05/10 0745 - - 99.8 ??F (37.7 ??C) Oral 93 141/74 mmHg 18 98 % RA 05/05/10 0405 - - 99.2 ??F (37.3 ??C) Oral 92 106/56 mmHg 18 95 % RA 05/05/10 0014 - - 99.3 ??F (37.4 ??C) Oral 94 117/55 mmHg 18 97 % RA 05/04/100 - - 98.3 ??F (36.8 ??C) Oral 100 146/89 mmHg 18 98 % RA Gen: No acute distress, alert and oriented times 3, affect is normal Lungs: Lungs clear bilaterally CV: Regular rate and rhythm wound covered with dressing. Abd: soft, non tender. Extremities: compression stockings in place with controlled edema. Neuromuscular: paraplegia. Tone 0/4 no observed spasms Patient Stool in the past 24 hrs: Stool 05/04/102129 Continent;Large;Uses Bathroom Patient Glucose Level in the past 24 hrs: POCT Glucose (mg/dL) POCT Glucose Out of Range 05/05/10 1200 137 MG/DL High 05/05/10 0745 108 MG/DL - Labs: Lab Results Component Value Date/Time ??? INR 1.8 05/05/10 6:15 AM ??? SODIUM 135 04/30/10 6:19 AM ??? K 4.3 04/30/10 6:19 AM ??? BUN 10 04/30/10 6:19 AM ??? CREATININE 0.70 05/04/10 4:00 AM ??? GLUCOSE 115 04/30/10 6:19 AM ??? HGB 8.6* 05/01/10 6:15 AM ??? 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 He was readmitted 04/30 with headache and fevers and spinal fluid concerning for bacterial meningitis vs post operative chemical meningitis. CSF Cultures (obtained after initiation of antibiotics) are growing Coagulase negative staphylococcus. Concerns of catheter infection also. Plan for possible surgery early next week for removal of catheter and possible pump removal. Plan: 1. Start oral baclofen 20mg TID (ordered) x 24-48 hours and then increase to 20mg QID orally if tolerated in anticipation to catheter/pump removal on Saturday or Saturday. (ordered). Ideally we can taper intrathecal baclofen dose if the plan is to remove the pump in the near future. Will dc with NS next week. 2. Continue with ativan current dose. May add valium if needed. 3. Please call PMR coat ironer hand MD if questions over the weekend. Thank you. Martha South MD Total time: 25minnseling and Coordination time: 20min --- End of Report --- Poonam Wallace - 05/05/2010 11:27 AM CDT [facility] MEDICINE PROGRESS NOTE Date of Service : 05/05/2010 Patient: Jie Cullen : 1945 SUBJECTIVE: Had headache last hs, relieved with IV dilaudid. Had mild sweats last hs. Feels well today. PO fair.Had many Qs re why he is on cardiac diet. OBJECTIVE: VS: BP 141/74 Pulse 93 Temp(Src) 99.8 ??F (37.7 ??C) (Oral) Resp 18 Ht 5' 10 (1.778 m) Wt116.6 kg (257 lb 0.9 oz) SpO2 98% Last 24 Hour Accucheck Glucose Results: Recent Labs Basename 05/05/10 0743 ??? GLWB 108 Intake/Output Summary (Last 24 hours) at 05/05/10 1127 Last data filed at 05/05/10 0641 Gross per 24 hour Intake 1560 ml Output 4000 ml Net -2440 ml General: AAOx3, no apparent distress, pleasant, cooperative HENT: PERRL. MM moist. CV: RRR, S1 S2 normal, No murmur. Lungs: CTA bilaterally. Abd: Normal bowel sounds, soft, NT/ND. Ext & Skin: no c / c / rash / edema. 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 He was readmitted 04/30 with headache and fevers, found to have neutrophilic pleocytosis, elevated protein and low glucose in the spinal fluid concerning for bacterial meningitis vs post operative chemical meningitis. CSF Cultures (obtained after initiation of antibiotics) are growing Coagulase negative staphylococcus. 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 He continues to have low grade fever & sweats inspite of appropriate antibiotics, raising concern for infected baclofen pump catheter. - probable removal of baclofen pump early next week per neurosurgery - infectious dis involved. - ct vanco & cefepime per ID recs - counselled patient & re trying PO pain meds for headache. H/o delirium with percocet in past. If he has no pain relief with PO vicodin, could change to PO dilaudid for pain control. Chronic DVT - s/p indwelling IVC filter since 1999 - coumadin on hold for potential procedures - monitor INR Chronic constipation & neurogenic bladder - ct indwelling de la cruz - bowel regimen Time spent with patient was 35 minutes, over 50% of which was spent in counseling and coordinating care. Updated & sister at bedside. Poonam Wallace MD [phone] Britni Huerta Y - 05/05/2010 10:31 AM CDT [facility] Clinical Pharmacy Follow Up Kinetics Note Assessment: Jie Cullen, [id number], is a 64 yr year old male receiving Vancomycin 2g iv q12h and cefepime 2g iv q12h for meningitis Recent Labs Basename 05/05/10 0615 ??? VANCO 17.1* Recommendations: No changes to current vanco regimen since above level is within goal 15-20 mg/L. Will recheck level in 5-7days. Will follow. Britni Huerta, PharmKatia Pager Number [phone] --- End of Report --- Brittny Jasso - 05/05/2010 10:07 AM CDT [facility] NeuroSurgery Spine Progress Note Date: 05/05/2010 Vitals Temp (24hrs), Min:97.5 ??F (36.4 ??C), Max:99.8 ??F (37.7 ??C) No Data Recorded Exam Awake, alert. Laying on left side in bed. present during exam. 2 short episodes of chills during the evening/night without fever. Max temp recorded in last 24 hours is 99.8. Not complaining of headache this morning but did have one last evening that approached 8/10 pain level - relieved with IV dilaudid. Has been getting out of bed with help and tolerating well. 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 Continues to have low grade fevers, hx ofDVT, on coumadin Plan Family members present during rounds this morning. Updated on patient's condition/plan. Cancel procedures planned for today. Will continue to observe patient in-house over the weekend. If any worsening, will take patient to the OR over the weekend to remove baclofen pump catheter. If continues to improve, plan would be to take to the OR early next week to exchange baclofen pump catheter and obtain CSF. Resume Coumadin today - discussed with pharmacist. Mobilize patient. OOB as tolerated. Please call with any questions. Brittny Lanza RN, am serving as a scribe to document services personally performed by Dr. Maurice Baron. All data has been reviewed by Dr. Maurice Baron. Brittny Jasso RN, ACNS-, CNRN Neuroscience Clinical Nurse Specialist [phone] --- End of Report --- Elise Briseno - 05/05/2010 9:53 AM CDT Problem: Falls Risk Goal: Moderate Risk (5-10): Fall Prevention I applied all active moderate risk falls prevention interventions. Zina Garcia - 05/05/2010 9:13 AM CDT 05/05/2010 S: Headache improved for the most part. NO new concerns. Current hospital medications Medication Dose Route Frequency ??? acetaminophen (aka TYLENOL) tablet 325-650 mg 325-650 mg Oral Q4H PRN ??? atorvastatin (aka LIPITOR) tablet 40 mg 40 mg Oral Daily ??? baclofen (aka LIORESAL) tablet 20 mg 20 mg Oral TID PRN ??? bisacodyl (aka DULCOLAX) suppository 10 mg 10 mg Rectal Q48H ??? cefepime (aka MAXIPIME) 2 g in NaCl 0.9 % 100 mL IV piggyback 2 g IV Q12H(NS) ??? citalopram (aka CELEXA) tablet 40 mg 40 mg Oral Daily ??? cyclobenzaprine (aka FLEXERIL) tablet 10 mg 10 mg Oral TID PRN ??? docusate sodium (aka ENEMEEZ) enema 283 mg 1 Enema Rectal DAILY PRN ??? gabapentin (aka NEURONTIN) capsule 200 mg 200 mg Oral TID ??? heparin injection 400 Units 4 mL IV BID ? ? heparin injection 400 Units 4 mL IV PRN after every IV medication & lab draw ??? hydrocodone-acetaminophen (aka VICODIN,LORTAB) 5-500 MG tablet 1-2 Tab 1-2 Tab Oral Q4H PRN ??? HYDROmorphone (aka DILAUDID) injection 0.5-1 mg 0.5-1 mg IV Q1H PRN ??? iron polysaccharide complex (aka NIFEREX-150) 150-50-50 MG capsule 1 Cap 1 Cap Oral Daily ??? lactulose 200 g in sterile water 200 mL rectal 300 mL Rectal ONCE PRN ??? lactulose oral liquid 20 g 30 mL Oral Q3H PRN ??? LORazepam (aka ATIVAN) tablet 1 mg 1 mg Oral TID ??? magnesium hydroxide (aka MILK OF MAGNESIA) oral liquid 30 mL 30 mL Oral ONCE PRN ??? NaCl 0.9 % infusion 1,000 mL 1,000 mL IV Continuous ? ? NaCl PF 0.9% injection 3-5 mL 3-5 mL IV PRN after every IV medication & lab draw ??? NaCl PF 0.9% injection 4 mL 4 mL IV PRN per Parameters ??? patient's own pump Intrathecal Continuous ??? polyethylene glycol 3350 (aka GLYCOLAX) powder 17 g 17 g Oral Daily ??? povidone-iodine (aka BETADINE) 10 % topical liquid Topical BID ??? senna (aka SENOKOT) tablet 17.2 mg 2 Tab Oral BID ??? skin protectant (aka LANTISEPTIC) ointment 1 Squirt 1 Squirt Topical QID PRN ??? vancomycin (aka VANCOCIN) 2,000 mg in NaCl 0.9 % 500 mL IV PIGGYBACK 2 g IV Q12H(NS) ??? 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 Hewas admitted 04/30 with headache and fevers, found to have neutrophilic pleocytosis, elevated proteinand low glucose in the spinal fluid concerning for bacterial meningitis, possibly with baclofen pumpcatheter involvement. MRI reveals large pseudomeningocele, the was tapped on 05/01 by IR, cultures growing Coagulse negative staph ([facility] skin brigette contaminant, isolate has different susceptibility pattern that the CSF isolate) Broad spectrum antimicrobials (Vancomycin and Meropenem) were given prior to lumbar puncture/pseudomeningoele tap. CSF cultures growing rare Coagulase negative staphylococcus. -Will continue the following: -Cefepime 2 grams 2 q12 hours through 05/12/10 (have opted to continue broad spectrum empiric coveragegiven that therapy preceded LP and may alter culture results) -Vancomcyin 1750 mg q 12 hours. Will continue this through the baclofen pump catheter removal and for 72 hours afterwards (if cultures from the CSF and catheter remain negative) Fevers have resolved. Pt is to remain in house over the weekend Baclofen pump catheter exchange planned (possibly as early as next week per patient) Would obtain CSF parameters, gram stain and cultures and culture of baclofen pump catheter at time of removal He will need weekly CBC with plts, diff, BUN, Cr, and vanco level while on therapy Dr. Tang is covering the ID service this weekend, please page him with any concerns Zina Garcia MD 05/05/2010 Dulce Palafox - 05/04/2010 10:24 PM CDT [facility] Progress Note (Nursing) Identify/Problem(s): Headache Desired Outcome(s): Patient will have tolerable headache relief Evaluation: Patient is alert and oriented X 4. Denies headache until about 1999, medicated with tylenol with no relief. Medicated with dilaudid at 2200. Patient up to bathroom with assist of 2 and had a large BM. De La Cruz with large amount of dark yellow urine. Incision cleaned and dressing changed, minimal drainageand skin about 2 inches around incision is pink and warm. Repositioned every 2 hours for comfort. Plan: Continue to monitor headache Dulce Palafox RN --- End of Report --- limpia Everett RN - 05/04/2010 12:57 PM CDT [facility] Progress Note (Nursing) Identify/Problem(s): FIELDS Desired Outcome(s): Patient will be free of FIELDS Evaluation: Patient alert, oriented x 4. C/o headache, states pain is tolerable with use of prn IV pain medication. Dangle at side of bed for breakfast, up to wheelchair with assist of 2 and slide board for lunch.Denies shakes, chills. Diaphoretic. Family at bedside throughout shift. Plan: Continue to monitor Olimpia James RN --- End of Report --- Tania Brantley - 05/04/2010 11:57 AM CDT [facility] Care Management Identification Technician Follow Up Note Admission Date/Time: 04/30/2010 1:25 AM Attending MD: Maurice Baron Date Chart reviewed; discussed with interdisciplinary team and with patient and family. Coordination of Care: Provided patient/family with options for dc planning. Barriers to Discharge: patient continues to require acute medical care Updated Assessment Discussed plan of care with ISMAEL Mart Nurse. Plan is as follows: Dr. Baron to reassess pt in the am.If pt is better, then no surgery planned and he will again reassess following day. If pt is no better or worse in the am, pt will be brought to the OR for LP and ultrasound of wound and if fluid collection seen, will perform u/s guided aspiration. DC planning will be somewhat of a challenge with this pt as he will need IV abx at dc and hopefully set up at ED in [place]. Pt's primary MD is out of office until May 10 and his clinic has a different coat ironer hand physician everyday, so that makes it tough to arrange a tentitive plan. Pt will stay over the weekend and will reassess Saturday and hopefully if pt stable for dc at that time, find MD at his clinic who will accept cares. Have discussed the above with Brittny. Attempted to check in with pt but he is sound asleep and not in room. They have been updated on plan of care and can touch base with them in am. Call with questions. Updated Plan of Care Anticipated Discharge Date: 05/08? Anticipated Discharge Plan: home with iv abx Plan for Follow Up: in am Report completed by Tania Brantley RN, Pager Number [phone] --- End of Report --- Daniel Jassoron Clemente - 05/04/2010 10:15 AM CDT [facility] NeuroSurgery Spine Progress Note Date: 05/04/2010 Vitals Temp (24hrs), Min:97.5 ??F (36.4 ??C), Max:99.9 ??F (37.7 ??C) No Data Recorded Exam Awake, alert. Laying on left side in bed. present during exam. Reports that he hasn't had any chills, but was diaphoretic during the night. Max temp recorded in last 24 hours is 99.9. Having FIELDS this morning that he recalls was 02/18 for which he received IV dilaudid & Vicodin. No FIELDS now. Sat up last evening and said it felt good. Posterior incision inspected. Slight erythema around incision. No drainage. Possible small fluid collection to right of upper incision. Wound is well approximated. 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 Continues to have low grade fevers, hx ofDVT, on coumadin Plan Family members present during rounds this morning. Updated on patient's condition/plan. Hold on procedures today. Will reassess patient in AM. If continues to improve, will hold off on doing any procedures. If no continued improvement in AM or any worsening, will take patient to the OR tomorrow afternoon for LP and possible ultrasound guided aspiration of right upper back fluid collection. Hold Coumadin again today. Will not plan to reverse Coumadin at this time and will instead plan on FFP tomorrow if plan for procedures is confirmed. NPO after midnight until patient is seen by Dr. Baron in the morning. Will hold on removal of Baclofen pump for now - pending patient status in AM and findings of LP/fluid aspiration if performed tomorrow. However, will ask PM&R to provide recommendations on oral Baclofen dosing in the event that the pump does need to be explanted over the weekend. Mobilize patient. OOB as tolerated. Please call with any questions. I, Brittny Jasso RN, am serving as a scribe to document services personally performed by Dr. Maurice Baron. All data has been reviewed by Dr. Maurice Baron. Brittny Jasso RN, ACNS-, CNRN Neuroscience Clinical Nurse Specialist [phone] --- End of Report --- Maurice Baron - 05/04/2010 10:15 AM CDT I have examined the patient and reviewed the plan of care and agree with the previous note. Maurice Baron MD 05/16/2010, 5:09 AM Zina Garcia - 05/04/2010 9:31 AM CDT 05/04/2010 S: Feeling well today, No headache, No fevers, No new concerns. Current hospital medications Medication Dose Route Frequency ??? acetaminophen (aka TYLENOL) tablet 325-650 mg 325-650 mg Oral Q4H PRN ??? atorvastatin (aka LIPITOR) tablet 40 mg 40 mg Oral Daily ??? baclofen (aka LIORESAL) tablet 20 mg 20 mg Oral TID PRN ??? bisacodyl (aka DULCOLAX) suppository 10 mg 10 mg Rectal Q48H ??? cefepime (aka MAXIPIME) 2 g in NaCl 0.9 % 100 mL IV piggyback 2 g IV Q12H(NS) ??? citalopram (aka CELEXA) tablet 40 mg 40 mg Oral Daily ??? cyclobenzaprine (aka FLEXERIL) tablet 10 mg 10 mg Oral TID PRN ??? docusate sodium (aka ENEMEEZ) enema 283 mg 1 Enema Rectal DAILY PRN ??? gabapentin (aka NEURONTIN) capsule 200 mg 200 mg Oral TID ??? heparin injection 400 Units 4 mL IV BID ? ? heparin injection 400 Units 4 mL IV PRN after every IV medication & lab draw ??? hydrocodone-acetaminophen (aka VICODIN,LORTAB) 5-500 MG tablet 1-2 Tab 1-2 Tab Oral Q4H PRN ??? HYDROmorphone (aka DILAUDID) injection 0.5-1 mg 0.5-1 mg IV Q1H PRN ??? iron polysaccharide complex (aka NIFEREX-150) 150-50-50 MG capsule 1 Cap 1 Cap Oral Daily ??? lactulose 200 g in sterile water 200 mL rectal 300 mL Rectal ONCE PRN ??? lactulose oral liquid 20 g 30 mL Oral Q3H PRN ??? LORazepam (aka ATIVAN) tablet 1 mg 1 mg Oral TID ??? magnesium hydroxide (aka MILK OF MAGNESIA) oral liquid 30 mL 30 mL Oral ONCE PRN ??? NaCl 0.9 % infusion 1,000 mL 1,000 mL IV Continuous ? ? NaCl PF 0.9% injection 3-5 mL 3-5 mL IV PRN after every IV medication & lab draw ??? NaCl PF 0.9% injection 4 mL 4 mL IV PRN per Parameters ??? patient's own pump Intrathecal Continuous ??? polyethylene glycol 3350 (aka GLYCOLAX) powder 17 g 17 g Oral Daily ??? povidone-iodine (aka BETADINE) 10 % topical liquid Topical BID ??? senna (aka SENOKOT) tablet 17.2 mg 2 Tab Oral BID ??? skin protectant (aka LANTISEPTIC) ointment 1 Squirt 1 Squirt Topical QID PRN ??? vancomycin (aka VANCOCIN) 2,000 mg in NaCl 0.9 % 500 mL IV PIGGYBACK 2 g IV Q12H(NS) ??? warfarin (aka COUMADIN) intermittent dosing Does not apply Use as Directed O: BP 141/78 Pulse 96 Temp(Src) 98.9 ??F (37.2 ??C) (Oral) Resp 17 Ht 5' 10 (1.778 m) Wt 116.6 kg (257 lb 0.9 oz) SpO2 94% Afebrile Sitting in wheelchair, visiting with sister, NAD Neck supple Moving upper extremities Back incision dressed, dressing dry NO rashes De La Cruz Component Latest Reference Range 05/03/2010 COLOR (U) Yellow URINE CLARITY Clear SPECIFIC GRAVITY, UR REGIONS 1.005 - 1.03 1.012 PH, URINE HP AND R 4.5 - 8.0 8.0 PROTEIN, URINE QUAL REGIONS Low: NEG mg/dl Trace (A) GLUCOSE, URINE QUAL REGIONS Low: NEG mg/dl Negative KETONES, URINE REGIONS Low: NEG mg/dl Negative UROBIL, URINE QUAL Low: <2.0 mg/dl <2.0 BILIRUBIN, URINE Low: NEG Negative BLOOD, URINE Low: NEG Small (A) NITRITE, URINE Low: NEG Negative LEUKOCYTE EST., UR Low: NEG Negative URBC 0 - 3 /hpf 19 (H) UWBC 0 - 5 /hpf 1 YEAST, BUDDING Low: NEG Present (A) EPITH, SQUAMOUS /hpf Occ TRANS, EPI /hpf Occ MUCOUS, URINE Present Component Latest Reference Range 05/04/2010 CREATININE 0.66 - 1.25 mg/dl 0.70 GFR, ESTIMATED Low: >60 ml/min/1.73m2 >60.00 GFR EST IF Low: >60 ml/min/1.73m2 >60.00 CONCLUSION: Improving bilateral deep venous thrombosis. 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 He was admitted 04/30 with headache and fevers, found to have neutrophilic pleocytosis, elevated protein and low glucose in the spinal fluid concerning for bacterial meningitis vs post operative chemical meningitis. Cultures (obtained after initiation of antibiotics) are growing Coagulase negative staphylococcus. MRI reveals large pseudomeningocele, the was tapped on 05/01 by IR, cultures growing Coagulase negative staph. -Neurosurgical service concerned that the baclofen pump catheter may be source of infection, catheter change is planned on 05/19. -Will continue Vancomycin 1750 mg q 12 hours and Cefepime 2 grams q 12 hours. Have opted to continuebroad spectrum empiric coverage given that therapy preceded LP and may alter culture results. -Will plan on the following: -Cefepime 2 grams 2 q12 hours through 05/12/10 -Vancomcyin 1750 mg q 12 hours through 05/19 (day after baclofen pump catheter removal) -Source of ongoing fevers unclear, but concerning for baclofen pump catheter infection. UA unremarkable, dopplers with resolving clot. If he spikes another fever, NS will have lumbar puncture repeated. If fevers and headache persist inthe absence of any other source (and/or CSF parameters are not improving), would proceed with catheter removal (though he is then at high risk of baclofen withdrawal) Zina Garcia MD 05/04/2010 Mónica Saldana - 05/04/2010 6:27 AM CDT [facility] Progress Note (Nursing) Identify/Problem(s): Headache Desired Outcome(s): Pt will be free of pain Evaluation: Pt alert and oriented. Gave him dilaudid and vicodin for FIELDS with adequate relief. Turned and repositioned q2 hrs. Vitals stable. BP 145/82 Pulse 104 Temp(Src) 99.2 ??F (37.3 ??C) (Oral) Resp 16 Ht 5' 10 (1.778 m) Wt 116.6 kg (257 lb 0.9 oz) SpO2 94% Plan: Continue to monitor and give medication if necessary. Mónica Saldana RN --- End of Report --- Mónica Saldana - 05/04/2010 2:28 AM CDT Problem: Falls Risk Goal: Moderate Risk (5-10): Fall Prevention I applied all active moderate risk falls prevention interventions. AT Malika Maradiaga RN - 05/03/2010 10:26 PM CDT [facility] Progress Note (Nursing) Identify/Problem(s): Headache Desired Outcome(s): Pt will be free of headache. Evaluation: Pt complains of headache, medicated with 1mg dilaudid. On recheck pt denied pain. Pt's temp max is 99.2, recheck 97.8. Pt denies chills and is not sweating. Pt is alert and oriented. Pt up to wheel chair, well tolerated. Pt turned and repositioned every two hours while in bed. Dressing changed and betadine applied to back incision. Incision is intact and buttons are present. No drainage noted. BP 120/78 Pulse 87 Temp(Src) 97.8 ??F (36.6 ??C) (Oral) Resp 18 Ht 5' 10 (1.778 m) Wt 116.6 kg (257 lb 0.9 oz) SpO2 96% Plan: Continue to assess headache. Malika Maradiaga RN --- End of Report --- Mckayla Hernandez - 05/03/2010 6:30 PM CDT [facility] Clinical Pharmacy Follow Up Kinetics Note Assessment: Jie Cullen, [id number], is a 64 yr year old male receiving vanco 1750mg IV q12h and iclmirsr1h IV q12h for meningitis. Recent Labs Basename 05/03/10 1745 ??? VANCO 13.0* Desired trough 15-20 mcg/ml Recommendations: The trough level is below the goal range. Will increase vanco to 2g IV q12h and recheck on Sat, 05/05. Mckayla Hernandez Pager Number [phone] --- End of Report --- Lucy Parker - 05/03/2010 4:02 PM CDT [facility] NeuroSurgery Progress Note Pt has been experiencing fever and chills throughout the night. He also admits to a FIELDS but not as severe as prior to abx initiation. Vitals Temp (24hrs), Min:98.1 ??F (36.7 ??C), Max:101.7 ??F (38.7 ??C) No Data Recorded BP 123/76 Pulse 104 Temp(Src) 99.2 ??F (37.3 ??C) (Oral) Resp 18 Ht 5' 10 (1.778 m) Wt 116.6 kg (257 lb 0.9 oz) SpO2 95% Exam Pt laying in bed shivering with multiple blankets. A&O, fluent and appropriate Strength intact to BUE, 0/5 BLE Incision CDI, retention sutures intact Urine in de la cruz bag looks clear Labs Lab Results Component Value Date/Time ??? SODIUM 135 04/30/10 6:19 AM ??? HGB 8.6* 05/01/10 6:15 AM ??? PROTIME 25.7* 05/03/10 8:30 AM ??? INR 2.2 05/03/10 8:30 AM ??? CSFRBC 626 04/30/10 11:00 AM ??? CSFWBC 3135* 04/30/10 11:00 AM ??? CSFLYMPH 9 04/30/10 11:00 AM ??? CSFGLUCOSE 32* 04/30/10 11:00 AM ??? 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 Continues to have low grade fevers Hx of DVT, on coumadin Plan Discussed with ID, will order another LP if cultures look improved compared to first we will continue with IV abx and remove baclofen pump catheter on May 18 then d/c vanco on May 19. If cultures show no improvement will plan on taking pt to OR on Saturday to remove baclofen pump and catheter, we will hold off on coumadin today and reverse its effects on due to possible surgery. If cultures are ok we will restart coumadin tomorrow. We will have to consider baclofen pump withdrawal and pt will need large doses of oral baclofen if we d/c pump on Saturday. Bilateral LE venous US and UA/UC due to continued fevers. Will consult medicine to help with management Lucy Parker PA-C --- End of Report --- KaronTania Ruben - 05/03/2010 3:27 PM CDT [facility] Care Management Identification Technician Initial Assessment Admission Date/Time: 04/30/2010 1:25 AM Attending MD: Maurice Baron Data Jie Cullen was referred to this Identification Technician for discharge planning. Chart reviewed, discussed with interdisciplinary team, as well as with patient and family. Jie Cullen was admittedto S10 for Headache [784.0] (HEADACHE). Insurance: Payor: MEDICARE PART B ONLY [id number] Plan: MEDICARE PART B ONLY Product Type: Medicare Current Living Situation: Patient lives with their spouse. Support System: and family Services Involved: none Additional Data: Pt's primary MD is Dr. Loretta Mcmahan at the [facility] Coordination of Care and Referrals: Provided patient/family with options for dc planning. Barriers to Discharge: patient continues to require acute medical care Assessment Pt is known to me from his previous admission. He lives with his in a single level home withoutsteps. Pt is wheelchair bound. He has a manual wc as well as a motorized wc. Pt has assist from wifeand sliding board for transfers. He also has a round pole attached to his bed that he uses to changepositions while in bed and to assist to a sitting position. Pt self caths and is on a bowel program. works about 3 hours per day, otherwise she is home with pt. Pt was fairly independent with upper extremities once he is up in his chair. Discussed plan of care with ISMAEL Lyman few times today. Due to pt having continued fevers, they are working pt up with duplex dopplers of LE's and UA/AC as well as repeating LP. If CSF remains unchanged, plan would be for pt to go to OR on Saturday for removal of Baclofen Pump Catheter in fear that it may be infected. If this is the case, dc date and plans are unknown. IF CSF is improved then pt will likely continue with plan of dc with IV vanco and IV cefepime both q 12 hours. Met with pt and his . Original plan was for pt to dc home soon with IV abx, Discussed with them that does not cover home IV abx, so options would be going into a clinic (which would be difficultdue to iv's are both bid) vs tcu. Pt does not want to go into tcu for iv's. wondering whether pt could go into the ER at the [address] in [place] . I did speak with housekeeping/laundry supervisor in the ED at hospital who tells me it is possible to provide this service for pt, ieshachuck would need the orders to come from pt's primary MD. I called pt's clinic this afternoon and los pt's primary MD is out of the office until May 10, that I would need to speak with the coat ironer hand MD. The coat ironer hand MD changes everyday, therefore I did not speak with him today as I do not know theexact plan or date at this time. I will follow up with clinic once plan is better known. Pt and wifeare aware of the above information. They have been updated by Dr. Baron and ROXY Lyman. Will follow up tomorrow with MD, pt, and his . Call with questions. Plan Anticipated Discharge Date: unknown at this time. Anticipated Discharge Plan: likely home with iv abx Plan for Follow Up: tomorrow. Report completed by Tania Brantley RN, Pager Number [phone] --- End of Report --- Olimpia James RN - 05/03/2010 3:08 PM CDT [facility] Progress Note (Nursing) Identify/Problem(s): Comfort Desired Outcome(s): Patient will be comfortable Evaluation: Patient alert, oriented x 4. Denied pain or discomfort in am, dangled at edge of bed for meals. C/o intermittent chills and shaking. Patient off floor in afternoon for ultrasound of BLE, on return c/o headache. Medicated with prn oral and IV pain medication with verbalized tolerable relief pain. at bedside throughout shift, assisting with cares. Plan: Continue to monitor Olimpia James RN --- End of Report --- Zina Garcia - 05/03/2010 9:26 AM CDT 05/03/2010 S: C/O mild headache at times, twinges. No other new concerns. No cough or dyspnea. Current hospital medications Medication Dose Route Frequency ??? acetaminophen (aka TYLENOL) tablet 325-650 mg 325-650 mg Oral Q4H PRN ??? atorvastatin (aka LIPITOR) tablet 40 mg 40 mg Oral Daily ??? baclofen (aka LIORESAL) tablet 20 mg 20 mg Oral TID PRN ??? bisacodyl (aka DULCOLAX) suppository 10 mg 10 mg Rectal Q48H ??? cefepime (aka MAXIPIME) 2 g in NaCl 0.9 % 100 mL IV piggyback 2 g IV Q12H(NS) ??? citalopram (aka CELEXA) tablet 40 mg 40 mg Oral Daily ??? cyclobenzaprine (aka FLEXERIL) tablet 10 mg 10 mg Oral TID PRN ??? docusate sodium (aka ENEMEEZ) enema 283 mg 1 Enema Rectal DAILY PRN ??? gabapentin (aka NEURONTIN) capsule 200 mg 200 mg Oral TID ??? heparin injection 400 Units 4 mL IV BID ? ? heparin injection 400 Units 4 mL IV PRN after every IV medication & lab draw ??? hydrocodone-acetaminophen (aka VICODIN,LORTAB) 5-500 MG tablet 1-2 Tab 1-2 Tab Oral Q4H PRN ??? HYDROmorphone (aka DILAUDID) injection 0.5-1 mg 0.5-1 mg IV Q1H PRN ??? iron polysaccharide complex (aka NIFEREX) capsule 150 mg 150 mg Oral Daily ??? lactulose 200 g in sterile water 200 mL rectal 300 mL Rectal ONCE PRN ??? lactulose oral liquid 20 g 30 mL Oral Q3H PRN ??? LORazepam (aka ATIVAN) tablet 1 mg 1 mg Oral TID ??? magnesium hydroxide (aka MILK OF MAGNESIA) oral liquid 30 mL 30 mL Oral ONCE PRN ??? NaCl 0.9 % infusion 1,000 mL 1,000 mL IV Continuous ? ? NaCl PF 0.9% injection 3-5 mL 3-5 mL IV PRN after every IV medication & lab draw ??? NaCl PF 0.9% injection 4 mL 4 mL IV PRN per Parameters ??? patient's own pump Intrathecal Continuous ??? polyethylene glycol 3350 (aka GLYCOLAX) powder 17 g 17 g Oral Daily ??? povidone-iodine (aka BETADINE) 10 % topical liquid Topical BID ??? senna (aka SENOKOT) tablet 17.2 mg 2 Tab Oral BID ??? skin protectant (aka LANTISEPTIC) ointment 1 Squirt 1 Squirt Topical QID PRN ??? vancomycin (aka VANCOCIN) 1,750 mg in NaCl 0.9 % 500 mL IV PIGGYBACK 1.75 g IV Q12H(NS) ??? warfarin (aka COUMADIN) intermittent dosing Does not apply Use as Directed O: BP 143/81 Pulse 92 Temp(Src) 98.6 ??F (37 ??C) (Oral) Resp 18 Ht 5' 10 (1.778 m) Wt 116.6 kg (257 lb 0.9 oz) SpO2 95% T max 101.7 A and O, shivering underneath blankets Neck supple Incision posteriop back, no drainage, scant erythema at edges, no cellulitis S1, S2, RRR CTA B BS present, baclofen pump palpable in left abdomen, no erythema No edema PICC site intact Component Latest Reference Range 05/01/2010 WBC 4.0 - 11.0 k/ul 6.8 RBC 4.5 - 5.9 M/ul 2.89 (L) HGB 13.5 - 17.5 g/dl 8.6 (L) HCT 41.0 - 53.0 % 25.6 (L) MCV 80 - 100 fl 88.7 MCH 26 - 34 pg 29.9 MCHC 32 - 36 g/dl 33.7 RDW 11.5 - 14.5 % 15.1 (H) PLTS 150 - 450 k/ul 265 MPV 6.5 - 10.0 fl 8.1 Micro: 05/01: Seroma: Many PMNs, no org CSF 04/30: Rare gram positive cocci A/P: 64 year old male, complicated Neurosurgical history including several surgeries for spinal ependymoma, paraplegia and baclofen pump placement, 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 He was admitted 04/30 with headache and fevers, found to have neutrophilic pleocytosis, elevated protein and low glucose in the spinal fluid concerning for bacterial meningitis vs post operative chemical meningitis. Neurosurgical team very concerned this represents bacterial infection. MRI reveals large pseudomeningocele, the was tapped on 05/01 by IR, cultures NGTD. Broad spectrum antimicrobials (Vancomycin and Meropenem) were given prior to lumbar puncture/pseudomeningoele tap. Cultures now beginning growth of gram positive coccus. Finalization pending, Preliminarily the organism is suspcious for coagulase negative staph per the micro lab. -Neurosurgical service concerned that the baclofen pump catheter may be source of infection, catheter change is planned on 05/19. -Will change coverage to Vancomycin 1750 mg q 12 hours and Cefepime 2 grams q 12 hours. Have opted to continue broad spectrum empiric coverage given that therapy preceded LP and may alter culture results. -Will plan on the following: -Cefepime 2 grams 2 q12 hours through 05/12/10 -Vancomcyin 1750 mg q 12 hours through 05/19 (day after baclofen pump catheter removal) -Source of ongoing fevers unclear, but concerning for baclofen pump catheter infection. NS will havelumbar puncture repeated. Will obtain dopplers of lower legs and obtain UA/UC. If fevers and headache persist in the absence of any other source (and/or CSF parameters are not improving), would proceedwith catheter removal (though he is then at high risk of baclofen withdrawal) Discussed with Neurosurgical team Zina Garcia MD 05/03/2010 Merced Snowden RN - 05/03/2010 4:59 AM CDT [facility] Progress Note (Nursing) Identify/Problem(s): Pain, Comfort Desired Outcome(s): Patient will have optimal pain relief Patient will be comfortable Evaluation: Patient reports FIELDS pain as 5/10, given prn vicodin x1 with good relief. Repositioned x2 per pt request to not be bothered overnight in order to sleep well. Positioned with pillows. Getting IV abx. De La Cruz with pale yellow urine, large output of ____ml this shift. BS active all quadrants. Bottom red, barrier cream applied. Diaphoretic overnight. Reduced heat in room, patient stated it may be his fever breaking. Temp 99.3 and 98.1 this shift. VSS BP 129/81 Pulse 100 Temp(Src) 98.1 ??F (36.7 ??C) (Oral) Resp 18 Ht 5' 10 (1.778 m) Wt 116.6 kg (257 lb 0.9 oz) SpO2 95% Plan: Continue to monitor pain and comfort level. Merced Snowden RN --- End of Report --- Paz Busby RN - 05/02/2010 9:59 PM CDT [facility] Progress Note (Nursing) Identify/Problem(s): Comfort and bowels Desired Outcome(s): Patient will be comfortable and will have BM Evaluation: VSS, lungs clear, bowel sounds positive. Patient recieved min-enema and was transferred to the toilet. Had large results. Appetite very good tonight. Did c/o FIELDS at 2030 and was given two Vicodin. Had atemp of 101.4 around 1700 and was given tylenol. Temp came down to 99.0. Also instructed on using ISevery hour. Patient did also sit up in his chair for one hour this jose. Recieiving IV antibiotics aswell as fluid. Plan: Cont to assess Paz Busby RN --- End of Report --- Martha Thomas - 05/02/2010 3:34 PM CDT [facility] PM&R Progress Note () Date of service: 05/02/2010 Diagnosis: ITB, spasticity and paraplegia. Encounter Diagnoses Code Name Primary? 322.9P Meningitis Yes ??? 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 784.0 Headache ??? 780.60BQ Fever ??? 728.85T Muscle Spasticity ??? 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 724.8 Other Symptoms Referable to Back SUBJECTIVE: No new problems, patient reports that headaches are better. He still has spasms in the legs but less frequent and less painful. Also reported some abdominal spasms this morning. He feels overall that the current dose is better. Has not had a BM and I have discussed with to continue with miralax on a daily basis once at home. Patient was feeling really cold and chilly and requested warm blankets. No other issues. . OBJECTIVE: Patient Vital Signs in the past 24 hrs: Height Wt - Scale Temp Temp src Pulse BP Resp SpO2 Oximetry Done On 05/02/10 1425 - - 98.8 ??F (37.1 ??C) Oral 113 132/89 mmHg 18 94 % RA 05/02/10 1100 - - 97.6 ??F (36.4 ??C) Oral 102 117/78 mmHg 16 94 % RA 05/02/10 0738 - - 98.4 ??F (36.9 ??C) Oral 107 141/84 mmHg 18 93 % RA 05/02/10 0424 - - 98.5 ??F (36.9 ??C) Oral 103 136/72 mmHg 18 94 % RA 05/02/10 0007 - - 100.4 ??F (38 ??C) Oral 104 119/76 mmHg 18 95 % RA 05/01/10 2000 - - 98.8 ??F (37.1 ??C) Oral - - - - - 05/01/10 1900 - - - - 97 116/73 mmHg 19 97 % - 05/01/10 1800 - - - - 109 100/68 mmHg 13 98 % - 05/01/10 1730 - - - - 100 109/68 mmHg 27 97 % - Gen: No acute distress, alert and oriented times 3, affect is normal Extremities: edema below knee chronic Neuromuscular: moves UE 5/5. LE 0/5 . No spasms noted today. Data: Patient Stool in the past 24 hrs: Stool 05/01/10 1600 None Labs: Lab Results Component Value Date/Time ??? INR 2.5 05/01/10 6:15 AM ??? SODIUM 135 6/20/10 6:19 AM ??? K 4.3 04/30/10 6:19 AM ??? BUN 10 04/30/10 6:19 AM ??? CREATININE 0.71 04/30/10 6:19 AM ??? GLUCOSE 115 04/30/10 6:19 AM ??? HGB 8.6* 05/01/10 6:15 AM ??? 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 He was admitted 04/30 with headache and fevers,CSF concerning for bacterial meningitis vs post operative chemical meningitis. MRI reveals large pseudomeningocele, the was tapped on 05/01 by IR, cultures NGTD. Patient is followed for management of ITB and baclofen dose. Pump dose will remain at 250 mcg/day. Will f/up in am for possible increasing dose. Per NS, patient will undergo ITB catheter change in few weeks, once stable. PMR will follow for pumpand dose adjustment if needed. We'll f/up with Dr. Baron. ID following for infection. On Vancomycin 1750 mg q 12 hours and Cefepime 2 grams q 12 hours per ID. Bowel program; today- mini enema, if no results, lactulose+milk of mag (30ml lactulose+30ml of milk of mag) and place patient on commode or toilet. Other issues and discharge disposition per primary team. Martha South MD Thank you. --- End of Report --- Olimpia James RN - 05/02/2010 12:16 PM CDT [facility] Progress Note (Nursing) Identify/Problem(s): Comfort, skin integrity Desired Outcome(s): Patient will be comfortable, patient will have improved skin integrity Evaluation: Patient alert, oriented x 4. C/o mild FIELDS, states pain is tolerable without use of prn pain medication. Dangle at bedside with assist of 2 for meals. Repositioned while in bed Q2 hours. at bedside throughout shift. Dressing to back changed, incision cleaned. Incision CDI. Plan: Continue to monitor Olimpia James RN --- End of Report --- Lucy Parker - 05/02/2010 10:58 AM CDT [facility] NeuroSurgery Progress Note Pt doing well, resting comfortably in bed. Denies FIELDS currently Vitals Temp (24hrs), Min:98.3 ??F (36.8 ??C), Max:100.4 ??F (38 ??C) Mean Arterial Pressure (MAP) Av.9 MM HG Min: 65 MM HG Max: 81 MM HG Exam Resting comfortably in bed No FIELDS or neck pain with flexion of neck Incision: sutures in place, no sign of infection, no drainage Labs Lab Results Component Value Date/Time ??? SODIUM 135 04/30/10 6:19 AM ??? HGB 8.6* 05/01/10 6:15 AM ??? PROTIME 28.5* 05/01/10 6:15 AM ??? INR 2.5 05/01/10 6:15 AM ??? CSFRBC 626 04/30/10 11:00 AM ??? CSFWBC 3135* 04/30/10 11:00 AM ??? CSFLYMPH 9 04/30/10 11:00 AM ??? CSFGLUCOSE 32* 04/30/10 11:00 AM ??? CSFPROTEIN 804* 04/30/10 11:00 AM Imaging No new imaging results Assessment 64 yo s/p ependymoma resection, readmitted for meningitis Hx of DVT, on coumadin Plan Give coumadin 5 mg today, INR tomorrow Leave retention sutures in place today Will ask ID if we can change Abx to Q12 hours to do IV abx at home vs TCU depending on insurance turn down worker will look into discharge planning, home with IV abx vs TCU Plan to replace baclofen pump catheter the day before he is done with IV abx Hgb 8.6, will start iron tabs Lucy Parker PA-C --- End of Report --- Zina Garcia - 05/02/2010 9:55 AM CDT 05/02/2010 S: Feeling better, today, headache largely resolved, still with a few tinges now and then. PICC line placed. NO new concerns. Discharge planning underway. Current hospital medications Medication Dose Route Frequency ??? acetaminophen (aka TYLENOL) tablet 325-650 mg 325-650 mg Oral Q4H PRN ??? atorvastatin (aka LIPITOR) tablet 40 mg 40 mg Oral Daily ??? baclofen (aka LIORESAL) tablet 20 mg 20 mg Oral TID PRN ??? bisacodyl (aka DULCOLAX) suppository 10 mg 10 mg Rectal Q48H ??? citalopram (aka CELEXA) tablet 40 mg 40 mg Oral Daily ??? cyclobenzaprine (aka FLEXERIL) tablet 10 mg 10 mg Oral TID PRN ??? docusate sodium (aka ENEMEEZ) enema 283 mg 1 Enema Rectal DAILY PRN ??? ferrous sulfate tablet 325 mg 325 mg Oral Daily with meals ??? gabapentin (aka NEURONTIN) capsule 200 mg 200 mg Oral TID ??? heparin injection 400 Units 4 mL IV BID ? ? heparin injection 400 Units 4 mL IV PRN after every IV medication & lab draw ??? hydrocodone-acetaminophen (aka VICODIN,LORTAB) 5-500 MG tablet 1-2 Tab 1-2 Tab Oral Q4H PRN ??? HYDROmorphone (aka DILAUDID) injection 0.5-1 mg 0.5-1 mg IV Q1H PRN ??? lactulose oral liquid 20 g 20 g Oral BID PRN ??? LORazepam (aka ATIVAN) tablet 1 mg 1 mg Oral TID ??? meropenem (aka MERREM) 2,000 mg in NaCl 0.9 % 100 mL IV piggyback 2 g IV Q8H ??? NaCl 0.9 % infusion 1,000 mL 1,000 mL IV Continuous ? ? NaCl PF 0.9% injection 3-5 mL 3-5 mL IV PRN after every IV medication & lab draw ??? NaCl PF 0.9% injection 4 mL 4 mL IV PRN per Parameters ??? patient's own pump Intrathecal Continuous ??? polyethylene glycol 3350 (aka GLYCOLAX) powder 17 g 17 g Oral Daily ??? povidone-iodine (aka BETADINE) 10 % topical liquid Topical BID ??? senna (aka SENOKOT) tablet 17.2 mg 2 Tab Oral BID ??? skin protectant (aka LANTISEPTIC) ointment 1 Squirt 1 Squirt Topical QID PRN ??? vancomycin (aka VANCOCIN) 1,250 mg in NaCl 0.9 % 250 mL IV PIGGYBACK 1.25 g IV Q8H ??? warfarin (aka COUMADIN) intermittent dosing Does not apply Use as Directed O: BP 141/84 Pulse 107 Temp(Src) 98.4 ??F (36.9 ??C) (Oral) Resp 18 Ht 5' 10 (1.778 m) Wt116.6 kg (257 lb 0.9 oz) SpO2 93% T max 100.4 A and O, lying in bed, NAD S1, S2, RRR CTA laterally PICC RUE, nontender Component Latest Reference Range 05/01/2010 WBC 4.0 - 11.0 k/ul 6.8 RBC 4.5 - 5.9 M/ul 2.89 (L) HGB 13.5 - 17.5 g/dl 8.6 (L) HCT 41.0 - 53.0 % 25.6 (L) MCV 80 - 100 fl 88.7 MCH 26 - 34 pg 29.9 MCHC 32 - 36 g/dl 33.7 RDW 11.5 - 14.5 % 15.1 (H) PLTS 150 - 450 k/ul 265 MPV 6.5 - 10.0 fl 8.1 Micro: 05/01: Seroma: Many PMNs, no org CSF 04/30: Rare organism, identification pending-per micro lab, 1 colony gram positive coccus A/P: 64 year old male, complicated Neurosurgical history including several surgeries for spinal ependymoma, paraplegia and baclofen pump placement, 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 He was admitted 04/30 with headache and fevers, found to have neutrophilic pleocytosis, elevated protein and low glucose in the spinal fluid concerning for bacterial meningitis vs post operative chemical meningitis. Neurosurgical team very concerned this represents bacterial infection. MRI reveals large pseudomeningocele, the was tapped on 05/01 by IR, cultures NGTD. Broad spectrum antimicrobials (Vancomycin and Meropenem) were given prior to lumbar puncture/pseudomeningoele tap. Cultures now beginning growth. Finalization pending, Preliminarily the organism is suspcious for coagulase negative staph per the micro lab. -Will change coverage to Vancomycin 1750 mg q 12 hours and Cefepime 2 grams q 12 hours. Have opted to continue broad spectrum empiric coverage given that therapy preceded LP and may alter culture results. -Will plan on 10 additional days therapy (through 05/12/10) -He will need follow up in the ID clinic in one week and will need weekly CBC with plts, diff, BUN, Cr and liver panel. Zina Garcia MD 05/02/2010 Olimpia James, RN - 05/02/2010 9:53 AM CDT Problem: Falls Risk Goal: Moderate Risk (5-10): Fall Prevention I applied all active moderate risk falls prevention interventions. Linda Powell, PharmD - 05/02/2010 8:15 AM CDT [facility] Clinical Pharmacy Follow Up Kinetics Note Assessment: Jie Cullen, [id number], is a 64 yr year old male receiving Vancomycin 1500mg iv q12h for possible [employer] ASSISTANT infection. Recent Labs Basename 05/01/10 1940 ??? VANCO 11.1* ??? GENT -- ??? TOBR -- ??? AMKC1 -- Desired level(s) are: trough 15-20 mcg/ml Recommendations: As level below desired range, will increase regimen to 1250mg iv q8h and follow. Will recheck a trough level in next few days if remains on vanco. Linda Powell Pager Number [phone] Later- Spoke with Dr Garcia of ID. Patient needs to be on a q12h regimen for discharge, so will change vanco to 1750mg iv q12h starting this afternoon. Will follow and check a trough level if patient remainsin the hospital in next few days. Linda Powell PharmD --- End of Report --- Merced Snowden RN - 05/02/2010 4:42 AM CDT [facility] Progress Note (Nursing) Identify/Problem(s): Comfort, Skin integrity Desired Outcome(s): Patient will be comfortable Patient will maintain skin integrity Evaluation: Patient reports pain as mild 1/10. Declines need for medication although grimaces at times with turning. Patient did request prn vicodin at 0700. Also given hot pack for neck. Turned at start of shift.Patient requested to be turned upon request and to not be woken up by staff. Turned second time @ 0700. IV pump on continuous infusion alarmed for obstruction. Attempted to flush PICC with saline without success. Administered 4ml heparin, difficult to push but eventually was able to flush and IVF restarted. De La Cruz patent with clear, yellow urine, high output of 2050ml. Bottom red, barrier cream applied. Back appeared to be reddened underneath dressing. VSS BP 136/72 Pulse 103 Temp(Src) 98.5 ??F (36.9 ??C) (Oral) Resp 18 Ht 5' 10 (1.778 m) Wt 116.6 kg (257 lb 0.9 oz) SpO2 94% Plan: Continue to monitor pain and skin integrity Merced Snowden, VALERIE --- End of Report --- Reina Dhaliwal RN - 05/01/2010 10:59 PM CDT [facility] Progress Note (Nursing) Identify/Problem(s): Transfer Desired Outcome(s): Pt will remain stable. Evaluation: Pt transferred from at 2130. Pt reported slight fields, declined prns. Alert and oriented. Dressing changed per order. Pt's at bedside and is planning to stay overnight. Plan: Continue to monitor pt's status. Assess for pain/fields, medicate prn. Reina Dhaliwal RN --- End of Report --- Ankita France - 05/01/2010 4:26 PM CDT [facility] Progress Note (Nursing) Identify/Problem(s): Pain Desired Outcome(s): Patient will remain stable, comfortable Evaluation: A+O x 4. VSS, Tele: ST, HR 100s. BPs 90s-100s systolically. C/o pain in neck, headache. Relieved with prn pain medication and scheduled ativan. Percocet discontinued, per makes patient confused. Last given 1mg dilaudid IV @ 1515, 2 tabs vicodin @ 1830. Patient c/o spasms this AM, given prn flexeril and baclofen, PM & R MD increased dose of baclofen (now at home/regular dose). Family at bedside. Turned/repositioned q2H. FNA of thoracic fluid collection completed. Given miralax and scheduled suppository as part of bowel regimen. Plan to transfer patient to [facility]. Plan: Continue to assess and monitor. Transfer to [facility]. Ankita France RN --- End of Report --- Ankita France - 05/01/2010 4:20 PM CDT Problem: Falls Risk Goal: Moderate Risk (5-10): Fall Prevention I applied all active moderate risk falls prevention interventions. Martha Thomas - 05/01/2010 10:47 AM CDT [facility] PM&R Consult Note ()/f/up Date of service: 05/01/2010 Diagnosis: Encounter Diagnoses Code Name Primary? 322.9P Meningitis ??? 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 784.0 Headache ??? 780.60BQ Fever ??? 728.85T Muscle Spasticity YES ??? 191.9DC Ependymoma I was asked by to evaluate Jie A Silasfletcher for adjustment of baclofen pump. 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 Since then he has had multiple surgeries and undergone radiationtherapy. He has a recurrent ependymoma. Has residual paraplegia, spasticity, neurogenic bladder and bowel. Patient is currently wheelchair bound and self caths, now using De La Cruz catheter for neurogenic bladder. He was admitted about 3 weeks ago for recurrent tumor and underwent Radical resection of thoracic spinal cord tumor on 04/11/2010. Patient readmitted to [facility] on 04/30 due to fever,chills, neck pain and headaches, with possible infection, meningitis. On 04/29 MRI of the Tspine showed Large mildly enhancing fluid collection which measures 4 x 11 x 16 cm in the posterior soft tissues of the upperback which has appearance consistent with a pseudomeningocele.Underwent lumbar puncture on April 30/2010 with CSF studies are consistent with infection with a high WBC, neutrophil predominance, lower glu cose level. The gram stain was negative. He is on vancomycin and meropenem until f/up cultures. He has responded well to antibiotics, with decreased spasms, chills and fever. FIELDS have improved. He was seen by PMR over the weekend and his pump dose was decreased to 200mcg/day on 04/30, since possible pump/catheter removal due to concerns of pump fluid/port infection. However, after good response to antibiotics, NS is considering changing the catheter in a couple of weeks, once patient is stable. Spasmsalso have increased and patient is uncomfortable. PMR called to increase dose to his previous baseline. ROS: patient reports that his legs is tight and he has more spasms, and abd spasms. No UE changes, no UE , has De La Cruz, with mildly cloudy urine, no spasms noted headaches, better and pain is currently controlled. Has not had a BM in the las 2 days. Reviewed the Bowel program with patient. He wants to have the pump increased. Current inpatient medications: Current hospital medications Medication Dose Route Frequency ??? acetaminophen (aka TYLENOL) tablet 325-650 mg 325-650 mg Oral Q4H PRN ??? atorvastatin (aka LIPITOR) tablet 40 mg 40 mg Oral Daily ??? baclofen (aka LIORESAL) tablet 20 mg 20 mg Oral BID PRN ??? citalopram (aka CELEXA) tablet 40 mg 40 mg Oral Daily ??? cyclobenzaprine (aka FLEXERIL) tablet 10 mg 10 mg Oral TID PRN ??? docusate sodium (aka ENEMEEZ) enema 283 mg 1 Enema Rectal DAILY PRN ??? ferrous sulfate tablet 325 mg 325 mg Oral Daily with meals ??? gabapentin (aka NEURONTIN) capsule 200 mg 200 mg Oral TID ??? HYDROmorphone (aka DILAUDID) injection 0.5-1 mg 0.5-1 mg IV Q1H PRN ??? lactulose oral liquid 20 g 20 g Oral BID PRN ??? LORazepam (aka ATIVAN) tablet 1 mg 1 mg Oral TID ??? meropenem (aka MERREM) 2,000 mg in NaCl 0.9 % 100 mL IV piggyback 2 g IV Q8H ??? NaCl 0.9 % infusion 1,000 mL 1,000 mL IV Continuous ? ? NaCl PF 0.9% injection 3-5 mL 3-5 mL IV PRN after every IV medication & lab draw ??? oxycoDONE-acetaminophen (aka PERCOCET) 5-325 MG tablet 1-2 Tab 1-2 Tab Oral Q4H PRN ??? patient's own pump Intrathecal Continuous ??? povidone-iodine (aka BETADINE) 10 % topical liquid Topical BID ??? senna (aka SENOKOT) tablet 17.2 mg 2 Tab Oral Daily ??? skin protectant (aka LANTISEPTIC) ointment 1 Squirt 1 Squirt Topical QID PRN ??? vancomycin (aka VANCOCIN) 1,500 mg in NaCl 0.9 % 250 mL IV PIGGYBACK 1.5 g IV Q12H Allergies: Zaroxolyn No past surgical history on file. No family history on file. History Social History ??? Marital Status: Spouse Name: N/A Number of Children: N/A ??? Years of Education: N/A Social History Main Topics ??? Tobacco Use: Never ??? Alcohol Use: No ??? Drug Use: No ??? Sexually Active: Yes -- Female partner(s) Other Topics Concern ??? Not on file Social History Narrative ??? No narrative on file Functional History: w/chair bound see above. OBJECTIVE: Patient Vital Signs in the past 24 hrs: Height Wt - Scale Temp Temp src Pulse BP Resp SpO2 Oximetry Done On 05/01/10 0700 - - 98.6 ??F (37 ??C) Oral - - - - - 05/01/10 0407 - - 98.2 ??F (36.8 ??C) Oral 104 105/42 mmHg 13 98 % - 05/01/10 0100 - - - - 98 95/47 mmHg 15 95 % - 05/01/10 0011 - - - - 98 81/42 mmHg 13 95 % - 04/30/10 2358 - - 97.2 ??F (36.2 ??C) Oral 97 86/47 mmHg 12 98 % O2 04/30/10 2357 - - - - 101 79/49 mmHg 16 98 % - 04/30/10 2356 - - - - 99 82/41 mmHg 13 93 % - 04/30/10 2000 - - 98.8 ??F (37.1 ??C) Oral 106 107/80 mmHg 15 97 % O2 04/30/10 1800 - - - - 113 115/52 mmHg 22 98 % O2 04/30/10 1600 - - 98.1 ??F (36.7 ??C) Oral 106 127/77 mmHg 15 96 % O2 04/30/10 1300 - - - - 97 115/72 mmHg 12 98 % - 04/30/10 1200 - - 98 ??F (36.7 ??C) Oral - - - - - Exam: Gen: No acute distress, alert and oriented times 3, affect is normal Lungs: Lungs clear bilaterally CV: Regular rate and rhythm Abd: abd soft, positive BS pump R flank is soft Extremities: edema compression stocking in place Neuromuscular: 0/5, spasms noted in the left LE: Tone 1/4 in the LE. No spasms noted in the R LE. Skin: normal color and warm Results for orders placed during the hospital encounter of 04/30/10 (from the past 48 hour(s)) HEMOGRAM/PLTS Component Value Range ??? WBC 11.3 (*) 4.0-11.0 (k/ul) ??? RBC 3.50 (*) 4.5-5.9 (M/ul) ??? HGB 10.4 (*) 13.5-17.5 (g/dl) ??? HCT 31.5 (*) 41.0-53.0 (%) ??? MCV 89.8 80-100 (fl) ??? MCH 29.7 26-34 (pg) ??? MCHC 33.1 32-36 (g/dl) ??? RDW 15.2 (*) 11.5-14.5 (%) ??? PLTS 307 150-450 (k/ul) ??? MPV 8.2 6.5-10.0 (fl) BASIC METABOLIC PANEL Component Value Range ??? BUN 10 7-20 (mg/dl) ??? SODIUM 134 (*) 135-145 (mmol/L) ??? POTASSIUM 4.6 3.5-5.1 (mmol/L) ??? CHLORIDE 97 (*) 98-107 (mmol/L) ??? CO2 29 22-30 (mmol/L) ??? GLUCOSE 109 70-180 (mg/dl) ??? CREATININE 0.86 0.66-1.25 (mg/dl) ? ? GFR, ESTIMATED >60.00 >60- (ml/min/1.73m2) ? ? GFR EST IF >60.00 >60- (ml/min/1.73m2) ??? CALCIUM 8.6 8.4-10.2 (mg/dl) ??? ANION GAP (CALC.) 8 3-11 (mmol/L) BLOOD CULTURE SITE 1 Component Value Range ??? SPECIMEN DESCRIPTION Blood PERIPHERAL IV LINE - ??? SPECIAL REQUESTS Unspecified - ??? CULTURE No Growth After 2 Days - ??? REPORT STATUS - BB HOLD TUBE (REGIONS ONLY) Component Value Range ??? BB HOLD TUBE Blood Bank save tube expires in 3 days - COAG HOLD (BLUE TUBE) Component Value Range ??? COAG HOLD Held in Coag Rack for 8 hours - GOLD HOLD TUBE (OR RED/RIGGS) Component Value Range ??? GOLD HOLD TUBE R Held in Chemistry sample rack for 7 days - CSF, GLUCOSE Component Value Range ??? SOURCE Cerebrospinal Fluid - ??? GLUCOSE, CSF 32 (*) 40-70 (mg/dl) CSF TOTAL PROTEIN Component Value Range ??? SOURCE Cerebrospinal Fluid - ??? TOTAL PROTEIN, CSF 804 (*) 12-60 (mg/dl) SPINAL FLUID CULTURE & SMEAR Component Value Range ??? SPECIMEN DESCRIPTION Cerebrospinal Fluid - ??? SPECIAL REQUESTS Unspecified - ??? GRAM SMEAR No Organisms Seen - ??? CULTURE - ??? REPORT STATUS - FIRST CSF CELL COUNT & DIFF Component Value Range ??? SOURCE OTHER (SPECIFY) - ??? DESCRIPTION, CSF Hazy - ??? TUBE # 4 - ??? XANTHOCHROMIA Present - ??? RBC, CSF 626 - (/ul) ??? NUCLEATED CELLS, CSF 3135 (*) 0-5 (/ul) ??? PMN'S 74 - (%) ??? LYMPHOCYTES 9 - (%) ??? MONOCYTE/MACROPHAGE 17 - (%) ANAEROBIC CULTURE Component Value Range ??? SPECIMEN DESCRIPTION Cerebrospinal Fluid - ??? SPECIAL REQUESTS Unspecified - ??? AEROBIC CULT NUMBER [id number] - ??? CULTURE Preliminary Culture Negative;Reincubate - ??? REPORT STATUS - MRSA ADMIT SCREEN Component Value Range ??? SPECIMEN DESCRIPTION Nose Swab - ??? SPECIAL REQUESTS Unspecified - ??? PCR No MRSA DNA Detected - ??? CULTURE No Methicillin Resistant Staphylococcus aureus - ??? REPORT STATUS Final 04/30/2010 - HEMOGRAM/PLTS/DIFF Component Value Range ??? WBC 8.9 4.0-11.0 (k/ul) ??? RBC 3.20 (*) 4.5-5.9 (M/ul) ??? HGB 9.7 (*) 13.5-17.5 (g/dl) ??? HCT 27.9 (*) 41.0-53.0 (%) ??? MCV 87.2 80-100 (fl) ??? MCH 30.1 26-34 (pg) ??? MCHC 34.6 32-36 (g/dl) ??? RDW 14.3 11.5-14.5 (%) ??? PLTS 295 150-450 (k/ul) ??? MPV 7.1 6.5-10.0 (fl) ??? PMN/BAND 80 (*) 43-72 (%) ??? LYMPH 13 (*) 17-43 (%) ??? MONO 7 4-12 (%) ??? EOS 0 0-8 (%) ??? BASO 0 0-1 (%) ??? PMN ABSOLUTE 7.1 1.8-7.7 (k/ul) ??? LYMPH ABSOLUTE 1.1 1.0-4.8 (k/ul) ??? MONO ABSOLUTE 0.6 0.1-0.7 (k/ul) ??? EOS ABSOLUTE 0.0 0.0-0.5 (k/ul) ??? BASO ABSOLUTE 0.0 0.0-0.2 (k/ul) BASIC METABOLIC PANEL Component Value Range ??? BUN 10 7-20 (mg/dl) ??? SODIUM 135 135-145 (mmol/L) ??? POTASSIUM 4.3 3.5-5.1 (mmol/L) ??? CHLORIDE 100 98-107 (mmol/L) ??? CO2 28 22-30 (mmol/L) ??? GLUCOSE 115 70-180 (mg/dl) ??? CREATININE 0.71 0.66-1.25 (mg/dl) ? ? GFR, ESTIMATED >60.00 >60- (ml/min/1.73m2) ? ? GFR EST IF >60.00 >60- (ml/min/1.73m2) ??? CALCIUM 7.9 (*) 8.4-10.2 (mg/dl) ??? ANION GAP (CALC.) 7 3-11 (mmol/L) MAGNESIUM Component Value Range ??? MAGNESIUM 1.9 1.6-2.3 (mg/dl) PHOSPHORUS Component ValueRange???PHOSPHORUS3.6 2.5-4.5 (mg/dl)INR/PROTIMEComponentValueRange???PZTUMCY63.5 (*)12.0-14.5 (sec)???INR2.5 - HEMOGRAM/PLTSComponentValueRange???WBC6.8 4.0-11.0 (k/ul)???RBC2.89 (*)4.5-5.9 (M/ul)???HGB8.6 (*)13.5-17.5 (g/dl)???HCT25.6 (*)41.0-53.0 (%)???MCV88.7 80-100 (fl)???MCH29.9 26-34 (pg)???MCHC33.7 32-36 (g/dl)???RDW15.1 (*)11.5-14.5 (%)???ILCK334 150-450 (k/ul)???MPV8.1 6.5-10.0 (fl) PROCEDURE NOTE: (resident was assisting with the programming of the pump under direct supervision) Pump interrogated: 05/01/2010 Current settings: Baclofen Concentration 1,000mcg/ml on simple continuous mode at a dose of 199.9 mcg/day. Pump updated settings: Baclofen concentration 1,000 mcg/ml on simple continuous mode increased to 249.8 mcg/day. 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 Clinical picture consistent with large pseudomeningocele and CSF labs suggestive of infection. Recommendations: 1. Continue with current dose of baclofen. May continue with oral baclofen also. I will follow up toadjust dose if spasms are painful and disruptive. Will f/up with NS and please call if ?. 2. Bowel program: discussed with patient: will restart miralax, increase senna and QOD mini-enema orsupp and sitting in the commode after a meal. 3. Bladder; cont with De [place] 4. Skin: wound nurse, and reposition every 2 hours. 5. Monitor for increasing edema, cont with stockings, and may also anna wrap legs if edema increases. 6. ID and NS for other medical issues. PLAN: We will continue to follow Total time: 40min. Counselling and Coordination time: 30min . Martha South MD cc: Trevin Salgado --- End of Report --- Zina Garcia - 05/01/2010 10:00 AM CDT 05/01/2010 S: Endorses severe headache that resumed this morning after getting up from bed to chair. Similar incharacter and quality to headache that brought him in. No better now that he is lying down. No fevers. Current hospital medications Medication Dose Route Frequency ??? acetaminophen (aka TYLENOL) tablet 325-650 mg 325-650 mg Oral Q4H PRN ??? atorvastatin (aka LIPITOR) tablet 40 mg 40 mg Oral Daily ??? baclofen (aka LIORESAL) tablet 20 mg 20 mg Oral BID PRN ??? citalopram (aka CELEXA) tablet 40 mg 40 mg Oral Daily ??? cyclobenzaprine (aka FLEXERIL) tablet 10 mg 10 mg Oral TID PRN ??? docusate sodium (aka ENEMEEZ) enema 283 mg 1 Enema Rectal DAILY PRN ??? ferrous sulfate tablet 325 mg 325 mg Oral Daily with meals ??? gabapentin (aka NEURONTIN) capsule 200 mg 200 mg Oral TID ??? HYDROmorphone (aka DILAUDID) injection 0.5-1 mg 0.5-1 mg IV Q1H PRN ??? lactulose oral liquid 20 g 20 g Oral BID PRN ??? LORazepam (aka ATIVAN) tablet 1 mg 1 mg Oral TID ??? meropenem (aka MERREM) 2,000 mg in NaCl 0.9 % 100 mL IV piggyback 2 g IV Q8H ??? NaCl 0.9 % infusion 1,000 mL 1,000 mL IV Continuous ? ? NaCl PF 0.9% injection 3-5 mL 3-5 mL IV PRN after every IV medication & lab draw ??? oxycoDONE-acetaminophen (aka PERCOCET) 5-325 MG tablet 1-2 Tab 1-2 Tab Oral Q4H PRN ??? patient's own pump Intrathecal Continuous ??? povidone-iodine (aka BETADINE) 10 % topical liquid Topical BID ??? senna (aka SENOKOT) tablet 17.2 mg 2 Tab Oral Daily ??? skin protectant (aka LANTISEPTIC) ointment 1 Squirt 1 Squirt Topical QID PRN ??? vancomycin (aka VANCOCIN) 1,500 mg in NaCl 0.9 % 250 mL IV PIGGYBACK 1.5 g IV Q12H O: BP 105/42 Pulse 104 Temp(Src) 98.6 ??F (37 ??C) (Oral) Resp 13 Ht 5' 10 (1.778 m) Wt 116.6 kg (257 lb 0.9 oz) SpO2 98% T max 100.1 A and O, lying on back in bed perrl S1, S2, RRR Laterally clear BS present No rashes Component Latest Reference Range 05/01/2010 WBC 4.0 - 11.0 k/ul 6.8 RBC 4.5 - 5.9 M/ul 2.89 (L) HGB 13.5 - 17.5 g/dl 8.6 (L) HCT 41.0 - 53.0 % 25.6 (L) MCV 80 - 100 fl 88.7 MCH 26 - 34 pg 29.9 MCHC 32 - 36 g/dl 33.7 RDW 11.5 - 14.5 % 15.1 (H) PLTS 150 - 450 k/ul 265 MPV 6.5 - 10.0 fl 8.1 Component Latest Reference Range 04/30/2010 SOURCE, SYN OTHER (SPECIFY) DESCRIPTION, CSF Hazy TUBE # 4 XANTHOCHROMIA Present RBC, CSF /ul 626 NUCLEATED CELLS, CSF 0 - 5 /ul 3135 (H) PMN'S-CSF % 74 LYMPHOCYTES-CSF % 9 MONOCYTE/MACROPHAGE % 17 SOURCE Cerebrospinal Fluid GLUCOSE, CSF 40 - 70 mg/dl 32 (L) TOTAL PROTEIN, CSF 12 - 60 mg/dl 804 (H) Micro: 04/30: CSF NGTD 04/30: Nares No MRSA 04/29: Blood Cx NGTD CONCLUSION: 1. Large mildly enhancing fluid collection which measures 4 x 11 x 16 cm in the posterior soft tissues of the upper back which has appearance consistent with a pseudomeningocele. 2. The fluid collection extends to the posterior margin of the thecal sac in the region of the upper thoracic laminaplasties. 3. No evidence of a epidural hematoma or abscess. 4. Postoperative changes within the upper thoracic cord. A/P: 64 year old male, complicated Neurosurgical history including several surgeries for spinal ependymoma, paraplegia and baclofen pump placement, 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 He was admitted 04/30 with headache and fevers, found to have neutrophilic pleocytosis, elevated protein and low glucose in the spinal fluid concerning for bacterial meningitis vs post operative chemical meningitis. Cultures negative to date, but broad spectrum antimicrobials (Vancomycin and Meropenem) were given prior to lumbar puncture. MRI reveals large pseudomeningocele. He endorses positional headache. Chemical vs bacterial meningitis -Continue current empiric therapy as we await culture finalization -Final recommendations to follow Zina Garcia MD 05/01/2010 Loree Allen - 05/01/2010 9:22 AM CDT [facility]. Infection Control Practitioner Note Issue Isolation status for meningitis Action Per Dr. Llamas (ID service0 note dated 03.30.10, patient's droplet precautions could have been discontinued at 1700 yesterday. Droplet order still in place. Patient has received 24 hours of appropriate antibiotics per ID. Will discontinue droplet precautions. Comments Will update staff during rounds. Please call infection prevention and control ext. [phone] with any additional isolation questions. Loree Allen RN, Aerial [employer]ner --- End of Report --- Paz Choudhary - 05/01/2010 4:59 AM CDT [facility] Progress Note (Nursing) Identify/Problem(s): Hypotension Desired Outcome(s): Pt will have BP WNL Evaluation: Pt is AOx4, pt blood pressure at 0000 was low, map<60, md was called and a bolus of NS was given with results. Pt was given dilaudid x1 for headache, with relief. Pt was turned through the night forcomfort and skin integrity. Pt is on tele sinus tach, on 3 liters NC sating in the high 90's lung sounds are clear. Patient Vitals in the past 8 hrs: BP Temp Temp src Pulse Resp SpO2 Height Wt - Scale 05/01/10 0407 105/42 mmHg 98.2 ??F (36.8 ??C) Oral 104 13 98 % - - 05/01/10 0100 95/47 mmHg - - 98 15 95 % - - 05/01/10 0011 81/42 mmHg - - 98 13 95 % - - 04/30/10 2358 86/47 mmHg 97.2 ??F (36.2 ??C) Oral 97 12 98 % - - 04/30/10 2357 79/49 mmHg - - 101 16 98 % - - 04/30/10 2356 82/41 mmHg - - 99 13 93 % - - Plan: Continue to monitor pt blood pressure. Paz Choudhary RN --- End of Report --- Paulina Ibrahim - 04/30/2010 11:30 PM CDT [facility] Progress Note (Nursing) Identify/Problem(s): Headache Desired Outcome(s): Headache will be made tolerable Evaluation: Pt A&O x4. C/O headache, rating it as high as 7/10. Treated effectively with PRN Dilaudid, Flexeril and Tylenol. Patient Vitals in the past 8 hrs: BP Temp Temp src Pulse Resp SpO2 Height Wt - Scale 04/30/10 2000 107/80 mmHg 98.8 ??F (37.1 ??C) Oral 106 15 97 % - - 04/30/10 1800 115/52 mmHg - - 113 22 98 % - - 04/30/10 1600 127/77 mmHg 98.1 ??F (36.7 ??C) Oral 106 15 96 % - - In SR. Pt kept flat in bed post-LP until 1730. Pt with some redness above incision on back followingflat bedrest, but this later resolved on its own. Incision CDI. Dressing change completed. Pt able to make needs known. Plan: Continue to monitor and treat headache as needed. Discussed plan of care with patient and family. Paulina Ibrahim RN --- End of Report --- Paulina Ibrahim - 04/30/2010 9:49 PM CDT Problem: Falls Risk Goal: Moderate Risk (5-10): Fall Prevention I applied all active moderate risk falls prevention interventions. Mary Ann Sullivan - 04/30/2010 3:39 PM CDT [facility] Progress Note (Nursing) Identify/Problem(s): Headache Post LP status Desired Outcome(s): Pt will have adequate headache relief. Pt will be stable following LP. Evaluation: Patient Vitals in the past 8 hrs: BP Temp Temp src Pulse Resp SpO2 Height Wt - Scale 04/30/10 1300 115/72 mmHg - - 97 12 98 % - - 04/30/10 1200 - 98 ??F (36.7 ??C) Oral - - - - - 04/30/10 0840 135/64 mmHg - - 105 20 96 % - - 04/30/10 0800 - 97.3 ??F (36.3 ??C) Oral - - - - - Pt A/O x4. LS clear. Pt on tele- sinus tach. Pt dangled for breakfast, tolerated well. Pt ate 75% breakfast. Pt reported a headache, dilaudid given with adequate relief. Pt off unit for LP. Pt stable post-procedure, pt to lay flat til 1700, tolerating well. Pt at bedside, questions answered. Pt is able to make needs known. Plan: Continue to follow pt plan of care. Mary Ann Sullivan RN --- End of Report --- Cristine Henson - 04/30/2010 2:29 PM CDT [facility] PM&R Progress Note () Date of service: 12/31/2009 Allergies:Zaroxolyn Current Medications: Current hospital medications Medication Dose Route Frequency ??? acetaminophen (aka TYLENOL) tablet 325-650 mg 325-650 mg Oral Q4H PRN ??? atorvastatin (aka LIPITOR) tablet 40 mg 40 mg Oral Daily ??? baclofen (aka LIORESAL) tablet 20 mg 20 mg Oral BID PRN ??? citalopram (aka CELEXA) tablet 40 mg 40 mg Oral Daily ??? cyclobenzaprine (aka FLEXERIL) tablet 10 mg 10 mg Oral TID PRN ??? docusate sodium (aka ENEMEEZ) enema 283 mg 1 Enema Rectal DAILY PRN ??? ferrous sulfate tablet 325 mg 325 mg Oral Daily with meals ??? gabapentin (aka NEURONTIN) capsule 200 mg 200 mg Oral TID ??? HYDROmorphone (aka DILAUDID) injection 0.5-1 mg 0.5-1 mg IV Q1H PRN ??? lactulose oral liquid 20 g 20 g Oral BID PRN ??? LORazepam (aka ATIVAN) tablet 1 mg 1 mg Oral TID ??? meropenem (aka MERREM) 2,000 mg in NaCl 0.9 % 100 mL IV piggyback 2 g IV Q8H ??? NaCl 0.9 % infusion 1,000 mL 1,000 mL IV Continuous ? ? NaCl PF 0.9% injection 3-5 mL 3-5 mL IV PRN after every IV medication & lab draw ??? oxycoDONE-acetaminophen (aka PERCOCET) 5-325 MG tablet 1-2 Tab 1-2 Tab Oral Q4H PRN ??? patient's own pump Intrathecal Continuous ??? povidone-iodine (aka BETADINE) 10 % topical liquid Topical BID ??? senna (aka SENOKOT) tablet 17.2 mg 2 Tab Oral Daily ??? skin protectant (aka LANTISEPTIC) ointment 1 Squirt 1 Squirt Topical QID PRN ??? vancomycin (aka VANCOCIN) 1,500 mg in NaCl 0.9 % 250 mL IV PIGGYBACK 1.5 g IV Q12H Subjective: Feeling better, headache better controlled. Denies increased muscle tone or itching, tone is tolerable, no significant increase in spasms. LP done this morning, cultures pending. Objective: Patient Vital Signs in the past 48 hrs: Height Wt - Scale Temp Temp src Pulse BP Resp SpO2 Oximetry Done On 04/30/10 1300 - - - - 97 115/72 mmHg 12 98 % - 04/30/10 1200 - - 98 ??F (36.7 ??C) Oral - - - - - 04/30/10 0840 - - - - 105 135/64 mmHg 20 96 % - 04/30/10 0800 - - 97.3 ??F (36.3 ??C) Oral - - - - - 04/30/10 0400 - - 98.6 ??F (37 ??C) Oral 104 100/57 mmHg 21 96 % O2 04/30/10 0300 - - - - 105 153/89 mmHg 18 94 % - 04/30/10 0230 - - 100.1 ??F (37.8 ??C) Oral - - - - - 04/30/10 0207 5' 10 (1.778 m) 116.6 kg (257 lb 0.9 oz) - - - - - - - 04/30/10 0200 - - - - 105 157/99 mmHg 18 98 % - 04/30/10 0145 - - - - 100 137/88 mmHg 16 99 % - 04/30/10 0137 - 116.6 kg (257 lb 0.9 oz) 98.2 ??F (36.8 ??C) Oral 100 134/81 mmHg 19 99 % O2 04/29/102329 - - - - - 109/63 mmHg - 97 % - 04/29/102314 - - - - - 104/62 mmHg - 97 % - 04/29/102299 - - - - - 111/63 mmHg - 97 % - 04/29/102244 - - - - - 100/62 mmHg - 97 % - 04/29/102229 - - - - - 119/74 mmHg - 96 % - 04/29/102214 - - - - - 133/64 mmHg - 96 % - 04/29/102199 - - - - - 128/72 mmHg - 97 % - 04/29/102144 - - - - - 128/78 mmHg - 98 % - 04/29/102129 - - - - - 132/71 mmHg - 96 % - 04/29/102114 - - - - - 120/66 mmHg - 96 % - 04/29/102099 - - - - - 144/80 mmHg - 98 % - 04/29/102044 - - - - - 122/62 mmHg - 97 % - 04/29/102031 - - - - - 124/50 mmHg - - - 04/29/10 1815 - - - - - 182/83 mmHg - 95 % - 04/29/10 1800 - - - - - 175/96 mmHg - 98 % - 04/29/10 1745 - - - - - 177/95 mmHg - 92 % - 04/29/10 1730 - - - - - 174/83 mmHg - 90 % - 04/29/10 1715 - - 100.9 ??F (38.3 ??C) Oral - 175/85 mmHg - 91 % - 04/29/10 1700 - - - - - 153/79 mmHg - 90 % - 04/29/10 1630 - - - - - 171/89 mmHg - 93 % - 04/29/10 1600 - - - - - 132/65 mmHg - 94 % - 04/29/10 1517 - - 99.5 ??F (37.5 ??C) Oral 114 132/81 mmHg 20 95 % RA Gen: No acute distress, alert and oriented times 3, tired appearing but cooperative. Abd: Abdomen soft, nondistended, nontender and pump in RLQ. Extremities: warm well perfused. No visible spasms Stool: Patient Stool in the past 120 hrs: Stool 04/30/10 1300 None 04/30/10 0800 None 04/30/10 0400 None 04/30/10 0137 None Post Void Residual: No data found. Bladder Scanner Results: No data found. [place] Output: Patient Urine Catheter Output (mL) in the past 24 hrs: Urine Catheter Output (mL) 04/30/10 0700 625 ML 04/30/10 0600 475 ML 04/30/10 0122 1400 ML Currently on Diet: Cardiac Liquid Consistency: (not recorded) Lab Results Component Value Date/Time ??? GLWB 100 04/19/10 10:05 PM ??? GLWB 133 04/19/10 5:02 PM ??? GLWB 126 04/18/10 9:28 PM ??? GLWB 114 04/17/10 5:29 PM ??? GLWB 200* 04/17/10 12:07 PM ??? GLWB 107 04/17/10 8:07 AM ??? GLWB 134 04/16/10 9:00 PM ??? GLWB 148 04/16/10 11:22 AM Labs: Results for orders placed during the hospital encounter of 04/30/10 (from the past 24 hour(s)) HEMOGRAM/PLTS Component Value Range ??? WBC 11.3 (*) 4.0-11.0 (k/ul) ??? RBC 3.50 (*) 4.5-5.9 (M/ul) ??? HGB 10.4 (*) 13.5-17.5 (g/dl) ??? HCT 31.5 (*) 41.0-53.0 (%) ??? MCV 89.8 80-100 (fl) ??? MCH 29.7 26-34 (pg) ??? MCHC 33.1 32-36 (g/dl) ??? RDW 15.2 (*) 11.5-14.5 (%) ??? PLTS 307 150-450 (k/ul) ??? MPV 8.2 6.5-10.0 (fl) BASIC METABOLIC PANEL Component Value Range ??? BUN 10 7-20 (mg/dl) ??? SODIUM 134 (*) 135-145 (mmol/L) ??? POTASSIUM 4.6 3.5-5.1 (mmol/L) ??? CHLORIDE 97 (*) 98-107 (mmol/L) ??? CO2 29 22-30 (mmol/L) ??? GLUCOSE 109 70-180 (mg/dl) ??? CREATININE 0.86 0.66-1.25 (mg/dl) ? ? GFR, ESTIMATED >60.00 >60- (ml/min/1.73m2) ? ? GFR EST IF >60.00 >60- (ml/min/1.73m2) ??? CALCIUM 8.6 8.4-10.2 (mg/dl) ??? ANION GAP (CALC.) 8 3-11 (mmol/L) BLOOD CULTURE SITE 1 Component Value Range ??? SPECIMEN DESCRIPTION Blood PERIPHERAL IV LINE - ??? SPECIAL REQUESTS Unspecified - ??? CULTURE No Growth After 12 Hours - ??? REPORT STATUS - BB HOLD TUBE (REGIONS ONLY) Component Value Range ??? BB HOLD TUBE Blood Bank save tube expires in 3 days - COAG HOLD (BLUE TUBE) Component Value Range ??? COAG HOLD Held in Coag Rack for 8 hours - GOLD HOLD TUBE (OR RED/RIGGS) Component Value Range ??? GOLD HOLD TUBE R Held in Chemistry sample rack for 7 days - CSF, GLUCOSE Component Value Range ??? SOURCE Cerebrospinal Fluid - ??? GLUCOSE, CSF 32 (*) 40-70 (mg/dl) CSF TOTAL PROTEIN Component Value Range ??? SOURCE Cerebrospinal Fluid - ??? TOTAL PROTEIN, CSF 804 (*) 12-60 (mg/dl) SPINAL FLUID CULTURE & SMEAR Component Value Range ??? SPECIMEN DESCRIPTION Cerebrospinal Fluid - ??? SPECIAL REQUESTS Unspecified - ??? GRAM SMEAR No Organisms Seen - ??? CULTURE - ??? REPORT STATUS - FIRST CSF CELL COUNT & DIFF Component Value Range ??? SOURCE OTHER (SPECIFY) - ??? DESCRIPTION, CSF Hazy - ??? TUBE # 4 - ??? XANTHOCHROMIA Present - ??? RBC, CSF 626 - (/ul) ??? NUCLEATED CELLS, CSF 3135 (*) 0-5 (/ul) ??? PMN'S 74 - (%) ??? LYMPHOCYTES 9 - (%) ??? MONOCYTE/MACROPHAGE 17 - (%) MRSA ADMIT SCREEN Component Value Range ??? SPECIMEN DESCRIPTION Nose Swab - ??? SPECIAL REQUESTS Unspecified - ??? PCR No MRSA DNA Detected - ??? CULTURE No Methicillin Resistant Staphylococcus aureus - ??? REPORT STATUS Final 04/30/2010 - HEMOGRAM/PLTS/DIFF Component Value Range ???WBC8.9 4.0-11.0 (k/ul)???RBC3.20 (*)4.5-5.9 (M/ul)???HGB9.7 (*)13.5-17.5 (g/dl)???HCT27.9 (*)41.0-53.0 (%)???MCV87.2 80-100 (fl)???MCH30.1 26-34 (pg)???MCHC34.6 32-36 (g/dl)???RDW14.3 11.5-14.5 (%)???GURK182 150-450 (k/ul)???MPV7.1 6.5-10.0 (fl)???PMN/BAND80 (*)43-72 (%)???LYMPH13 (*)17-43 (%)???MONO7 4-12 (%)???EOS0 0-8 (%)???BASO0 0-1 (%)???PMN ABSOLUTE7.1 1.8-7.7 (k/ul)???LYMPH ABSOLUTE1.1 1.0-4.8 (k/ul)???MONO ABSOLUTE0.6 0.1-0.7 (k/ul)???EOS ABSOLUTE0.0 0.0-0.5 (k/ul)???BASO ABSOLUTE0.0 0.0-0.2 (k/ul)BASIC METABOLIC PANELComponentValueRange???BUN10 7-20 (mg/dl)???KFLAWO917 135-145 (mmol/L)???POTASSIUM4.3 3.5-5.1 (mmol/L)???QYEGEESD212 98-107 (mmol/L)???CO228 22-30 (mmol/L)???TXQGSTK818 70-180 (mg/dl)? ?CREATININE0.71 0.66-1.25 (mg/dl)? ?GFR, ESTIMATED>60.00 >60- (ml/min/1.73m2)? ?GFR EST IF >60.00 >60- (ml/min/1.73m2)? ?CALCIUM7.9 (*)8.4-10.2 (mg/dl)? 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 MRI consistent with large pseudomeningocele. Initial CSF labs suggestive of infection. 1. Discussed with Neurosurgery, no definitive plan yet re: if he will need pump ex-plant or not. Will continue with ITB taper in anticipation of possible explant. Pump re-programmed to decrease dose from 225 mcg/day to 200 mcg/day simple continuous. 2. Monitor for signs of withdrawal (increased muscle tone or spasms, itching, lowering of seizure threshold). May treat increased tone or spasms with po baclofen for now; however, would not recommend scheduling it as patient's can experience withdrawal from oral baclofen if NPO or if they have a post-op ileus. Can treat spasms with prn Valium, better choice as it is available IV. OK to watch mild increase in tone that is not painful or disruptive. Can page PM&R on- call if any questions re: tone management. Please page [phone] with any questions or concerns re: ITB pump or tone management tonight. will be available tomorrow at [phone]. Total time: 25. Counseling and Coordination time: 15. Cristine Henson MD --- End of Report --- Nabil Justin - 04/30/2010 2:00 PM CDT Lumbar puncture performed over the L3 vertebral body without difficulty. 12 cc's cloudy CSF removed.No complications. Trevin Salgado - 04/30/2010 10:25 AM CDT 3 weeks ago the patient had a thoracic ependymoma removed. This was the third or fourth surgical exploration along with radiation therapy and subsequent additional Cyberknife therapy. The patient states she has had a headache off and on since surgery, but it became more significant over the last 36 hours. His relates that he had a stiff neck upon admission. It is certainly supple now. The plan was to get a lumbar puncture and then begin antibiotics. Unfortunately he did not get his lumbar puncture and wide spectrum antibiotics were begun. The patient relates that his headache is essentially gone today. His neck is supple. He has been paraplegic for a couple of years. His wound shows some moderate induration, but he has had 2 bouts of radiation therapy. Retention sutures are in place. An LP will still be performed today. Possibilities would include a low-grade infectious meningitis versus a late onset chemical meningitis. With his supple neck today, perhaps he had headaches in the absence of any meningeal inflammation. I will discuss with Dr. Baron who operated on him. He will see him tomorrow. He may be that Dr. Baron will take him off all antibiotics and repeat an LP in a few days if he is symptomatic. Trevin Salgado M.D. Alyce Arguelles - 04/30/2010 7:54 AM CDT [facility] Clinical Pharmacy Initial Kinetics Note Assessment: Jie Cullen, [id number], is a 64 year old male started on Meropenem 2 gm IV q8h and Vancomycin 1 gm IV q12h for possible meningitis. Data: Last Height: 5' 10 (177.8 cm) Last Wt - Scale: 257 lb 0.9 oz (116.6 kg) Archer Body Weight: 73 kg Dosing Weight: 90 kg Last Temp: 98.6 ??F (37 ??C) Temp (24hrs), Min:98.2 ??F (36.8 ??C), Max:100.9 ??F (38.3 ??C) Lab Results Component Value Date/Time ??? WBC 8.9 04/30/10 6:19 AM ??? CREATININE 0.71 04/30/10 6:19 AM Estimated CrCl = 64-78 ml/min The estimated kd = 0.063 1/hour and t1/2 = 11 hours. Recommendations: #1. Change Vancomycin to 1500 mg IV q12h to provide a more appropriate 16.7 mg/kg/dosing wt at an interval consistent with pt estimated t 1/2 and age. #2. Check Vancomycin trough level prior to 3rd - 5th dose aiming for goal trough level of 15-20 mcg/ml which is most appropriate for coverage of meningitis. #3. Consider tailoring antibiotics within the next 24-48 hours if culture results and clinical status allow. We will continue to follow with you. Pls page with any questions/concerns regarding this matter. Thanks. Alyce Arguelles Pager Number: [phone] --- End of Report --- Aidee Villarreal - 04/30/2010 3:09 AM CDT [facility] Progress Note (Nursing) Identify/Problem(s): Headache Desired Outcome(s): Will have adequate pain control Evaluation: Patient is alert and oriented x4. Slight withdrawal and no sensation in BLE's. C/o headache on transfer requiring dilaudid 2mg and percocet 2 tablets to resolve. Midline surgical incision and buttons are intact. Plan: Continue to monitor. Discussed plan of care with patient, family and provider. Wound consult for wound in gluteal fold with some firmness and redness noted on buttocks. Frequent position changes. Aidee Villarreal RN --- End of Report --- AT Aidee Villarreal - 04/30/2010 2:50 AM CDT Problem: Falls Risk Goal: High Risk (11+): Fall Prevention I applied all active high risk falls prevention interventions. Aidee Villarreal RN Jaden Tavarez - 04/29/2010 10:29 PM CDT [facility] Clinical Pharmacy Medication Reconciliation Note Medication History: acetaminophen (AKA TYLENOL) 325 MG tablet Take 1-2 Tabs by mouth every 4 hours as needed for Pain. atorvastatin (LIPITOR) 40 MG tablet Take 1 Tab by mouth daily. azithromycin (ZITHROMAX) 250 MG tablet Take by mouth . Take two tablets on the first day, and take one tablet each day on days 2-5 baclofen (AKA LIORESAL) 10 MG tablet Take 2 Tabs by mouth two times a day as needed. BACLOFEN IT 220 mcg by Intrathecal route daily. citalopram (AKA CELEXA) 40 MG tablet Take 40 mg by mouth daily. cyclobenzaprine (AKA FLEXERIL) 10 MG tablet Take 10 mg by mouth two times a day. docusate sodium (AKA ENEMEEZ) 283 MG enema Insert 5 mL rectally daily as needed. PT. USES ENEMA EVERY OTHER DAY. ferrous sulfate 325 (65 FE) MG tablet Take 1 Tab by mouth daily with breakfast. Gabapentin (AKA NEURONTIN) 100 MG tablet Take 2 Tabs by mouth three times a day. lactulose 10 GM/15ML solution Take 30 mL by mouth two times a day as needed. For constipation LORazepam (AKA ATIVAN) 0.5 MG tablet Take 2 Tabs by mouth three times a day. OMEGA-3 FATTY ACIDS OR Take 1 Cap by mouth daily povidone-iodine (AKA BETADINE) 10 % external solution Apply topically two times a day senna (AKA SENOKOT) 8.6 MG tablet Take 2 Tabs by mouth daily. USES 3 TABS IN THE AM & 2 TABS AT HS EVERY OTHER DAY. TRIMETHOPRIM OR Take 100 mg by mouth daily. warfarin (AKA COUMADIN) 5 MG tablet Take 1 Tab by mouth daily Patient in ER -Home meds not ordered yet -Pharmacy will F/U on home medication orders Medications Reviewed and Reconciled: Any medication adjustments made from patient's medication history regimen are appropriate for current hospitalization and medical condition. PHARMACIST NAME: Jaden Tavarez Phone/Pager #: [phone] --- End of Report --- Cristine Henson - 04/29/2010 8:13 PM CDT [facility] PM&R Progress Note () Date of service: 04/29/2010 Allergies:Zaroxolyn Current Medications: Current hospital medications Medication Dose Route Frequency ??? meropenem (aka MERREM) 2,000 mg in NaCl 0.9 % 100 mL IV piggyback 2 g IV Q8H ??? metroNIDAZOLE-NaCl 0.9% (aka FLAGYL) infusion 500 mg 500 mg IV Q6H ??? vancomycin 1 g IV piggyback PYXIS 1 g IV Now ??? vancomycin 1 g IV piggyback PYXIS 1 g IV Now Subjective: Called by surveying or spatial science technician to re-start pump following MRI. Mr. 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 Since discharge 04/20/10 he has been diagnosed with pneumonia, presented today with headache, neck stiffness, fevers. Per ER physician he is being worked up for meningitis, epidural abscess, etc. Has a Synchromed II pump placed in 2006, followed by Dr. Hooper at [facility] for management.Last hospitalization dose was increased from 225 mcg/day to 250 mcg/day simple continuous. He had a refill done at Dr. Hooper's office on 04/20/10 following his hospital discharge, no dose change at that time. His tone has been slightly increased, mainly noticing some different spasms than his typical ones at night time. Denies itching. Had a catheter revision in 10/19 and experienced withdrawal at that time. PMH: 1. Thoracic ependymoma with previous resection (his reports a total of 4 spinal surgeries) and cyberknife treatment, s/p radical thoracic tumor resection 04/11/10. 2. DVT on coumadin 3. HTN 4. Dyslipidemia 5. ITB pump placed in 2006, proximal catheter revision in 10/19. History of pump flipping prior to revision. 6. S/p hernia repair 7. S/p arthroscopic knee procedure SHx: Lives in [facility] with his , doesn't smoke, no EtOH. Meds: See EMR ROS: As included in HPI, otherwise negative. Objective: Patient Vital Signs in the past 48 hrs: Height Wt - Scale Temp Temp src Pulse BP Resp SpO2 Oximetry Done On 04/29/10 1815 - - - - - 182/83 mmHg - 95 % - 04/29/10 1800 - - - - - 175/96 mmHg - 98 % - 04/29/10 1745 - - - - - 177/95 mmHg - 92 % - 04/29/10 1730 - - - - - 174/83 mmHg - 90 % - 04/29/10 1715 - - 100.9 ??F (38.3 ??C) Oral - 175/85 mmHg - 91 % - 04/29/10 1700 - - - - - 153/79 mmHg - 90 % - 04/29/10 1630 - - - - - 171/89 mmHg - 93 % - 04/29/10 1600 - - - - - 132/65 mmHg - 94 % - 04/29/10 1517 - - 99.5 ??F (37.5 ??C) Oral 114 132/81 mmHg 20 95 % RA Gen: No acute distress, alert and oriented times 3, tired appearing but conversational Abd: pump in RLQ, well healed scar overlying it. Neuromuscular: paraparesis. UE's at least antigravity, manual muscle testing deferred due to his pain. Skin: intact Wound: Not Applicable ITB Pump interogated: SynchroMed IIB 8637-40 40mL Serial number [id number] Catheter: two- piece, Total Catheter Volume 0.222 mL Current Settings: 1000 mcg/mL concentration, daily dose 249.8 mcg/day simple continuous Alarm date 09/20/2010 Event log reviewed: 04/29/2010 19:13 Motor Stall Occurred 04/29/2010 20:16 Motor Stall Recovery Occurred. Labs: Results for orders placed during the hospital encounter of 04/29/10 (from the past 24 hour(s)) HEMOGRAM/PLTS Component Value Range ??? WBC 11.3 (*) 4.0-11.0 (k/ul) ??? RBC 3.50 (*) 4.5-5.9 (M/ul) ??? HGB 10.4 (*) 13.5-17.5 (g/dl) ??? HCT 31.5 (*) 41.0-53.0 (%) ??? MCV 89.8 80-100 (fl) ??? MCH 29.7 26-34 (pg) ??? MCHC 33.1 32-36 (g/dl) ??? RDW 15.2 (*) 11.5-14.5 (%) ??? PLTS 307 150-450 (k/ul) ??? MPV 8.2 6.5-10.0 (fl) BASIC METABOLIC PANEL Component Value Range ??? BUN 10 7-20 (mg/dl) ??? SODIUM 134 (*) 135-145 (mmol/L) ??? POTASSIUM 4.6 3.5-5.1 (mmol/L) ??? CHLORIDE 97 (*) 98-107 (mmol/L) ??? CO2 29 22-30 (mmol/L) ??? GLUCOSE 109 70-180 (mg/dl) ??? CREATININE 0.86 0.66-1.25 (mg/dl) ? ? GFR, ESTIMATED >60.00 >60- (ml/min/1.73m2) ? ? GFR EST IF >60.00 >60- (ml/min/1.73m2) ??? CALCIUM 8.6 8.4-10.2 (mg/dl) ??? ANION GAP (CALC.) 8 3-11 (mmol/L) BB HOLD TUBE (REGIONS ONLY) Component Value Range ??? BB HOLD TUBE Blood Bank save tube expires in 3 days - COAG HOLD (BLUE TUBE) Component Value Range ??? COAG HOLD Held in Coag Rack for 8 hours - GOLD HOLD TUBE (OR RED/RIGGS) Component Value Range ??? GOLD HOLD TUBE R Held in Chemistry sample rack for 7 days - Assessment/Plan: 64 y/o male with history of recurrent ependymoma s/p radical thoracic tumor resection with ITB pump.Pump appropriately stalled and restarted during/after MRI. 1. Pump interrogated as above. 2. On further discussion with ER team, they would like a CSF sample to evaluate for meningitis, which we can obtain via a side-port access on the pump. -Spoke with Neurosurgery to alert them to risk of ITB pump infection if SPECIAL EVENTS ASSISTANT is infected. Discussed possible need for explant if infected. They are agreeable with side-port access for CSF sample. Will begin decreasing ITB dose in anticipation of possible explant; we can increase the dose later if pump is not explanted. -Called [facility] support to verify catheter information. They do not track catheter length or volume but could verify that an 8709 catheter was placed in 12/18 and a Proximal Revision Kit 8596 wasadded in 10/19. This corresponds with catheter information loaded in the pump. -There is a risk of intrathecal baclofen overdose or underdose if there is a difference between recorded and actual catheter length. Discussed with patient and ER staff. Overdose could cause muscle weakness, low tone, and potentially lead to decreased respiratory drive requiring ventilatory support until effects of overdose wear off in 8-12 hours. Underdose could cause withdrawal symptoms including increased tone, itching, and potential seizure. -Could not locate a side-port access kit in [facility]'s materials room or IV pharmacy; one was located at [place] and brought to the ER. PROCEDURE NOTE: Risks, benefits, alternatives discussed with patient and , questions were answered, and they gave consent to the procedure. Skin overlying the pump was cleansed three times with chloraprep. Using sterile technique, the template was used to localize the side-access port. Access was attempted three times with a 24-gauge needle without success. Needle was withdrawn. Xrays of the abdomen to achieve aPA and lateral of the pump were taken to determine pump orientation and see if it has flipped, the lateral view was limited due to motion, unable to definitively tell if it has flipped. Skin overlying the pump was cleansed again three times with chloraprep. Using sterile technique, the template was used to localize the side-access port. Access was attempted again three times with the second 24-gauge needle in the pump without success. Needle was withdrawn. Not able to access port and no CSF sample obtained. Pump was reprogrammed to decrease dose from 250 mcg/day to 225 mcg/day simple continuous. Dose verified on cnc operator programmer by the patient. Alarm date of 10/07/2010 noted. If primary team needs a CSF sample, may consider an image-guided access of the side-access port (ultrasound or CT) vs a traditional LP. Please page me at [phone] prior to procedure as there is a specific kit needed and specific techniques and reprogramming needed to minimize risk of intrathecal baclofen overdose or withdrawal. Discussed with ER team. Will follow-up on patient in the morning, please page me at [phone] with any questions or concerns prior to that. Total time: 80. Counseling and Coordination time: 50. Cristine Henson MD --- End of Report --- documented in this encounter Procedure Notes Maurice Baron X - 06/26/2010 11:07 AM CDT DATE OF SURGERY: 05/09/2010 STAFF SURGEON: Maurice Baron MD HEAD OF ACADEMIC TECHNOLOGY: ROXY Fragoso ANESTHESIA: General. PREOPERATIVE DIAGNOSES: 1. 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 2. History of prior baclofen pump placement for spasticity. 3. Persistent infection despite adequate antibiotic therapy. POSTOPERATIVE DIAGNOSES: 1. 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 2. History of prior baclofen pump placement for spasticity. 3. Persistent infection despite adequate antibiotic therapy. PROCEDURE PERFORMED: Revision of baclofen pump catheter. EBL: 5 mL. INDICATION: The patient is an unfortunate, 65-year-old gentleman in whom I did surgery approximately 6 weeks ago removing a large recurrent ependymoma of the thoracic spine. Surgery was well-toleratedbut the patient came back later with fever and evidence of a meningitis. To complicate things worse,this patient has a previously placed baclofen pump. Therefore, the concern was that, of course, thissystem was exposed to an infection. He has responded well to the antibiotic therapy, although the standard treatment of this at this point would be to remove his baclofen pump. The idea was to see if we could get away by sterilizing the cerebrospinal fluid with antibiotics and then once the infection was under control, go ahead and take the patient and see what the cerebrospinal fluid looked like. Ifit was not bad, just replace the catheter of the pump system with the hope of getting away with this. The patient and his understands that there is a very good chance that ultimately we are going to have to remove the whole system, but as I do not want him to go into significant worsening spasticity, I want to try this first. Risks and goals have been thoroughly discussed with the patient and his family. PROCEDURE: The patient was anesthetized, intubated, and placed in lateral decubitus with right sideup. Skin prepped and draped in the usual sterile fashion. The previous incision covering the pump was infiltrated and opened, exposing the pump which was elevated from its pocket. I then exposed the pos terior incision, exposing the intrathecal catheter. Leaving the existing catheter inside, I went to one intraspinous level below and utilized a Tuohy needle to go into the thecal sac, aspirating clear cerebrospinal fluid. This was sent for cultures. I then advanced a new intrathecal catheter to the mid thoracic spine level. The Tuohy needle was removed. I then proceeded to remove the previously placedcatheter one level above. I put a stitch in the fascia at the level where the catheter goes up. I then advanced the subcutaneous tunneler from the abdomen to back incision and then advanced the newly placed catheter through the tunneler. This catheter was secured to the fascia with an anchor, secured with 2-0 silk sutures. The wound on the back was then irrigated and closed in layers. Then, I connected the catheter to the pump via a 45 degree connector. This connection was secured with a 2-0 silk tie. The pump was then placed back in its pocket, secured to the pocket with a 3-0 silk suture. The wound was irrigated and closed in layers using Vicryl 0, 2-0, 3-0, 4-0 and Dermabond. The wound with dressed. The patient returned to his gurney, woken up, extubated, and taken stable to the [facility]. The procedure was well tolerated with no apparent complications. Needle and sponge counts correct and verifiedat the end of the case. EBL was less than 5 mL. MD hailey David Dictated: 06/26/2010 11:07:23 Transcribed: 06/26/2010 15:10:40 Doc #: [id number] cc: 1 Page 2 Patient Name: JIE CULLEN INPATIENT OPERATIVE REPORT CONFIDENTIAL MEDICAL RECORD [address] [id number] Page 1 Patient: JIE CULLEN Location: [facility] HPN: [id number] Admit Date: 04/30/2010 Date of : 1945 Discharge Date: 05/13/2010 Age: 65Y INPATIENT OPERATIVE REPORT Lucy Parker - 05/09/2010 1:48 PM CDT [facility] Brief Operative Progress Note Surgery Date: 05/09/2010 Primary Surgeon: Surgeon(s): Maurice Baron Assistants: Lucy Parker PA-C Post-op Diagnosis: INFECTION-THORACIC Procedure: REVISION OF BACLOFEN PUMP CATHETER EBL: 5 mL Specimens: Fluid around baclofen pump and CSF fluid from the catheter Complications / Findings: None/ see dictated operative note Removed old baclofen, replaced with new 40 mL 1000mcg/mL baclofen. Did not change pump settings. Didnot put in new pump Replaced catheter tubing Plan: Transfer back to [address] [place] [address] [facility] Continue with IV abx Abdominal binder Indications: I was asked by Dr. Baron to assist with surgery. I positioned and prepped the patient.I retracted soft tissue for operative exposure. I suctioned fluids. I provided traction for dissection. I helped with ligate blood vessels. I helped Dr. Baron identify and protect important structures. I sutured and bandaged the incision. The procedure was medically necessary for an digital assistant because Dr. Baorn needed the operative exposure and assistance that I provided. This allowed him to safely and efficiently operate. It was also important that I help ligate blood vessels to maintain hemostasis and reduce the bleeding risk. The assistance that I provided reduced operative time which meant less general anesthetic for the patient. Lucy Parker PA-C --- End of Report --- [facility] ANESTHESIA, PROVIDER - 05/09/2010 12:00 AM T [facility] ANESTHESIA, PROVIDER - 05/09/2010 12:00 AM T [facility] ANESTHESIA, PROVIDER - 05/09/2010 12:00 AM T [facility] ANESTHESIA, PROVIDER - 05/09/2010 12:00 AM T [facility], PROVIDER - 05/09/2010 12:00 AM CDTAssociated Order(s): EKG IP; EKG IP Birgit Melton - 05/01/2010 3:06 PM CDT [facility] Radiology Drainage Note Procedure: Ultrasound guided drainage of paraspinal fluid. Post Operative Diagnosis: Seroma Radiologist: Birgit Melton Medications: 5 mL 1% Lidocaine Contrast: None Fluoroscopy Time: N/A Estimated Blood Loss: none Complications: none Specimens: fluid from focal collection Findings: Thoracic paraspinal fluid drained with Ultrasound guidance using 18 gauge Needle. 100 mL of serous fluid obtained and sample submitted for lab analysis. Plan: Follow-up as appropriate by primary physician. Report completed by Birgit Melton Jennyfer Ramírez - 05/01/2010 1:09 PM CDT [facility] PICC Line Insertion Procedure Note Lacey Lumen PICC Site One Date of Service: 05/01/10 UNIVERSAL PROTOCOL: Procedure Location: Condition: Elective Consent: Imformed Written Patient Identification: Verified Time Out: Performed Site Prep: Chloraprep Protective Barriers: Maximum Barriers Used including Handwashing, Sterile Gown, Gloves, Mask, Eye Protection & Cap PROCEDURE: Insert/Remove: Inserted Inserted By?: PICC Services Indication: Antibiotics Vice President Investor Relations: Power PICC Size (Malay): 5 Length (cm): 47 CM Lot #: [id number] Location: Right or Left: Right Site: Basilic Dressing: Tegaderm w/antimicrobial patch Ultrasound guidance used for access. Jennyfer Ramírez --- End of Report --- [facility] - 04/30/2010 12:00 AM CDTAssociated Order(s): EKG IP; EKG IP documented in this encounter Consult Notes Jayna Ambriz - 05/08/2010 5:57 PM CDTAssociated Order(s): NEPHROLOGY INPT CONSULT Renal staff See full dictated consult. Pt likely has appropriate natriuresis of edema. Unclear if edema is from venous return problem from DVT's, IVC filter partial occlusion in past. Dr. Baron has doubted problems at level of IVC in thorax. Also may have edema from denervation of LE arterioles/veins. Being supine facilitates diuresis as well. Would allow him to autodiurese and would not give IV fluids unless he becomes hypotensive, has tachycardia, or has increased BUN/creat ratio. Would check chem 8 daily. Thanks, will follow. Jayna Ambriz MD 05/08/2010, 6:00 PM Jayna Ambriz - 05/08/2010 5:54 PM CDT DATE OF CONSULTATION: 05/08/2010 PHYSICIAN REQUESTING CONSULT: Dr. Maurice Baron. INDICATION: Evaluate patient who is polyuric. HISTORY OF PRESENT ILLNESS: The patient is a 65-year-old gentleman who has a history of thoracic ependymoma dating back to May 2000. The patient had 2 surgeries in 1999 for debulking, then had radiation in 2000 with quiescence of tumor until 2005, when increased spasticity of the lower extremities was noted and the patient had tumor regrowth. The patient underwent resection by Dr. Baron on 04/11/2010. At that time his weight was 230 pounds.His present weight today is 252 pounds. I am unable to determine the amount of IV fluid volume the patient received during his hospitalization. The patient was discharged from the hospital on 04/20/2010. He and his noticed extreme bedwetting at night. In the past the patient had straight cathed himself intermittently, but had required several times per day straight catheterization for the last 3months. The patient could not keep up with his large amount of urine output and had a De La Cruz catheterinserted as an outpatient. On 04/24/2010, the patient was seen for fevers and headaches. He was admitted to [facility] on 04/29 for fever and was found to have coag-negative staph CSF infection. On 05/01/2010, the patient underwent drainage of the thoracic paraspinal fluid, which again grew out coag-negative staph. Regarding urine volumes measured on 05/01/2010, urine volume was 3.8 liters, 05/02 6.2 liters, 05/03 7.2 liters, 05/04 5.7 liters, 05/05 7.2 liters, 05/06 7.5 liters, 05/07 5.1 liters, 05/08 6 liters. The patient's serum potassium and sodium levels have been normal. No hypotension has been noted. Heart rate has been in the 80s to 90s. The patient's claims that as an outpatient the patient's heart rate has mostly been over 100, though he did have hypertension. The patient's baseline creatinine level appears to be about 0.7 to 0.9 and he has not had an increased BUN to creatinine ratio. The patient does not feel thirsty and has not been drinking fluids excessively. On average he has received approximately 1000 mL of fluid either IV or oral daily. The patient states that his appetite is so-so. His headache is much improved. No Fevers in last couple days. He reports less lower extremity edema at home after his last hospital discharge. The patient has no sensation below his mid chest. PAST MEDICAL HISTORY: 1. Thoracic ependymoma with previous resection begun initially in 1999 with a total of 4 spinal surgeries and CyberKnife treatment status post radical thoracic tumor resection on 04/11/2010. 2. DVT on Coumadin with IVC filter. 3. History of hypertension. 4. History of hypercholesterolemia. 5. ITB pump placed 2006. 6. Status post hernia repair. 7. History of straight catheterization since 2006 on occasion, but with more frequent straight catheterizations for the last 3 months. 8. Nonocclusive DVT noted on Doppler 05/03/2010, right common femoral vein and proximal right femoral vein involved. Previous DVT of proximal right profunda femoral vein not visualized. Nonoccluding DVT in the proximal left femoral vein. Nonoccluding DVT within left common femoral vein no longer visualized. MEDICATIONS: 1. Atorvastatin 40 mg daily. 2. Cefepime 2 grams q.12h. 3. Citalopram 40 mg daily. 4. Flexeril 10 mg t.i.d. p.r.n. 5. Docusate sodium enema daily p.r.n. 6. Gabapentin 200 mg t.i.d. 7. Dilaudid p.r.n. 8. Niferex tablet 1 daily. 9. Lorazepam 1 mg t.i.d. 10. Senna 12.2 mg tab b.i.d. 11. Vancomycin 2 grams IV q.12h. ALLERGIES: ZAROXOLYN PRODUCES RASH. SOCIAL HISTORY: The patient is and lives with his in [place]. REVIEW OF SYSTEMS: Positive for decreased ability to cough. Occasional snoring present. No periorbital edema. History of duskiness of lower extremities present. 10-point review of systems otherwise negative. PHYSICAL EXAMINATION: Pleasant, drowsy, but arousable middle-aged gentleman who appears his stated age. BP 117/78, pulse 89, 95% O2 on room air. Weight 114.4 kg or 252 pounds. HEENT: No scleral icterus, no periorbital edema. Neck: Supple, no nodes. Cardiac: Regular rate without murmurs or gallops. Lungs: Clear to auscultation. Dressings over the midthoracic area present. Abdomen: Obese, soft, nontender, no abdominal wall edema. Firmness of the bilateral buttocks, thighs and legs noted. 1+ pedal edema present. Dorsalis pedis and posterior tibial pulses 2+ bilaterally. LABORATORY STUDIES: Sodium 141, potassium 4.0, chloride 108, CO2 31, glucose 90, BUN 7, creatinine 0.6, calcium 8.2, magnesium 2.1, phosphorus 3.7, white count 6.3, hemoglobin 9.0, platelets 270, INR 1.5. Serum osmolality 293, urine osmolality 342, urine sodium 143. ASSESSMENT: 65-year-old gentleman status post resection on 04/11/2010 of thoracic T5 ependymoma. Polyuria was noted following that hospitalization, which persists. The patient is readmitted with meningitis from coag-negative staph, presumably from a wound infection. The patient's serum sodium concentration is normal and his electrolytes have remained within the normal range. Historically his weight was 230 pounds earlier in April on 2 occasions and is 252 today. On exam he has significant lower extremity edema and historically has had problems with lower extremity edema. This raises the issue of whether this edema is from impaired venous return, either from clot in each leg or at the level of the IVC from clot obstructing the filter. He also may have decreased sympathetic tone to his lower extremity blood vessels, which decreases their tonicity and results in more lower extremity edema. The patient is hemodynamically stable and his renal function is normal.Being supine may also help him on auto-diurese. He also had been anticoagulated and appears to have r esolution of clot in some of his previously involved deep veins. The patient's urine sodium is not elevated so he does not appear to have a salt wasting nephropathy. He is not hyponatremic so we cannotinvoke a cerebral salt wasting problem. Historically the patient and his also report tachycardia, which may reflect decreased venous return and a compensatory tachycardia to maintain cardiac output. Given that the patient's renal function remains normal, I would not invoke that he has any drug reaction causing an interstitial nephritis and urinary concentrating ability problem. However, if the creatinine level were to increase, then we may need to investigate a drug-induced cause of polyuria. PLAN: 1. Would allow the patient to auto-diurese and would check a Chem-8 profile daily to follow potassium and BUN and creatinine levels. I would only intervene with normal saline or other IV fluids if the patient develops tachycardia, hypotension or rise in BUN and creatinine. 2. Will follow physical exam for change in edema, to determine if diuresis is no longer appropriate. 3. Will order KCl 40 meq daily, anticipating loss of 10 meq or more K per liter urine excreted. 4. Have written for prn NS if bp systolic < 90 x 2 readings will bolus with NS x 500 cc then 150 cc/hr. This would suggest pt has abnormal Na wasting and needs further eval. Jayna Ambriz MD [facility] Dictated: 05/08/2010 17:54:52 Transcribed: 05/08/2010 19:39:57 Doc #: [id number] cc:Maurice Baron MD 1 Page 3 Patient Name: JIE CULLEN CONSULTATION CONFIDENTIAL MEDICAL RECORD [address] [id number] Page 1 Patient: JIE CULLEN Location: [facility] HPN: [id number] Admit Date: 04/30/2010 Date of : 1945 Discharge Date: Age: 65Y CONSULTATION Zelalem Cohen - 2010 10:03 AM CDT [facility] PM&R Consult Note () S: Pt is doing ok with his spasticity and spasms in LE. He is tolerating the oral baclofen ok. He admits to being anxious about the possibility of baclofen withdrawal. Denies FIELDS, Fever, chills. O: VS: afebrile Gen: in bed, mildly anxious, a/o, is present at bedside Neuro: LE prom 0/4 modified joann scale bilaterally Minimal left EHL spasticity A: 1. Intrathecal baclofen pump with active CSF infection- Staph, on Abx Recs: 1. Most likely the intrathecal catheter and pump system is infected. Ideally, the entire system should be removed including any foreign objects including if he has a dacron pouch in place. If this werethe case, then his intrathecal baclofen pump would be tapered by 10-20% per day prior to surgery while titrating his oral medications. Increase oral baclofen to 20mg four times per day starting today per discussion with Dr. Flores. 2. ID consult re: abx 3. Once wounds heal, re-evaluate in future for need of re-placement of pump. Dr. Cohen Poonam Wallace - 05/04/2010 2:44 PM CDTAssociated Order(s): MEDICINE INPT CONSULT [facility] Medicine Consult Patient Name: Jie Cullen. . Date of : 1945. Admit Date/Time: 04/30/2010 1:25 AM. Attending: Maurice Baron Medicine consult was requested by Maurice Wilson, neurosurgery, for recommendations re persistent fevers. 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 He was discharged home on 04/20/10 and was doing well at the time. Few days later, Patient reports fever to 101 - on 04/24/2010 he was seen at ER in [place] &was treated with IM ceftriaxone & azithromycin for possible pneumonia. He felt slightly better for 2 days but then had fever again on 04/28, this time with significant chills & drenching sweats.He was admitted to [facility] on 04/29 for the fever. He also c/o severe headache since 04/28. He also has a baclofen pump in situ. In the ER, LP was attempted but unsuccessful. He was started on IV antibiotics - IV ceftriaxone 2 grams & vancomycin on 04/29/10 and admitted. LP was done on 04/30/10, after antibiotics were started. CSF showed 3135 WBCs with 74% PMNs, protein was very high 804, CSF glucose low at 32. Gram stain was negative but CSF cultures grew rare coag negstaph. Blood cultures on admission, 6/19/10, is negative. On 05/01/10, He underwent drainage of Thoracic paraspinal fluid with Ultrasound guidance, 100 mL of serous fluid obtained and cultures again grew rare coag neg staph species. Patient currently feels better overall but continues to have low grade fevers & drenching sweatsat night. Headache is better overall, but not completely resolved. Medicine consult requested for ongoing fevers. He denies SOB / cough / chest pain. No N / V. No abdominal pain. Has indwelling de la cruz catheter sincesurgery 04/11/10. No diarrhea. Appetite is fair. At baseline, he is wheelchair bound. Able to transfer with assist x 1. Has chronic constipation - uses senokot bid every other day, prune juice, enemas every other day prn. Review of Systems: The remainder of the complete review of systems is negative. Previous Medical History: Old records were reviewed by me. Past Medical History Diagnosis Date ??? Ependymoma 1999 S/p resection by Dr. Glasgow at [facility] in 05/2000. However resection was incomplete due to encasement of nerves. XRT was planned but ependymoma quickly regrew & he underwent re-resection in 07/2000. 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 He again underwent resection, this time followed by radiation therapy. This controlled the tumorfor approximately 5 years. In 02/2006 he presented with increased spasticity of BLEs, again found tohave tumor regrowth. In 05/2006 he underwent cyberknife treatment. In 03/2007 with balance issues he was found to have fluid within the spinal cord for which he was treated with steroids. This led to profound weakness and right biceps tendon tear. He became wheelchair bound. In 02/2010 he again presented with urinary retention and was found to have ependymoma regrowth. He underwent resection again by Dr Baron on 04/11/10.he was seen by Dr Genny Loya who felt he may be a candidate for chemoRx once c ompletely recovered from surgery. Has baclofen pump for spasticity. Paraplegic. ??? 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 had non occlusive DVT of bilat LEs on dopplers 04/2010 ??? 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 HTN (Hypertension) ??? Dyslipidemia . Past Surgical History Procedure Date ??? Appendectomy ??? Vasectomy* ??? TURP ??? Total knee replacement right ??? Ivc filter placement 1999 . Current outpatient medications: Medications marked Taking as of 04/30/10 encounter (Hospital Encounter) with MAURICE BARON X: acetaminophen (AKA TYLENOL) 325 MG tablet Take 1-2 Tabs by mouth every 4 hours as needed for Pain. Disp: 120 Tab Rfl: 1 atorvastatin (LIPITOR) 40 MG tablet Take 1 Tab by mouth daily. Disp: Rfl: azithromycin (ZITHROMAX) 250 MG tablet Take by mouth . Take two tablets on the first day, and take one tablet each day on days 2-5 Disp: Rfl: baclofen (AKA LIORESAL) 10 MG tablet Take 2 Tabs by mouth two times a day as needed. Disp: 20 Tab Rfl: 0 BACLOFEN IT 220 mcg by Intrathecal route daily. Disp: Rfl: citalopram (AKA CELEXA) 40 MG tablet Take 40 mg by mouth daily. Disp: Rfl: cyclobenzaprine (AKA FLEXERIL) 10 MG tablet Take 10 mg by mouth two times a day. Disp: Rfl: docusate sodium (AKA ENEMEEZ) 283 MG enema Insert 5 mL rectally daily as needed. PT. USES ENEMA EVERY OTHER DAY. Disp: 15 Each Rfl: 0 ferrous sulfate 325 (65 FE) MG tablet Take 1 Tab by mouth daily with breakfast. Disp: 60 Tab Rfl: 0 Gabapentin (AKA NEURONTIN) 100 MG tablet Take 2 Tabs by mouth three times a day. Disp: Rfl: lactulose 10 GM/15ML solution Take 30 mL by mouth two times a day as needed. For constipation Disp: 240 mL Rfl: 0 LORazepam (AKA ATIVAN) 0.5 MG tablet Take 2 Tabs by mouth three times a day. Disp: Rfl: OMEGA-3 FATTY ACIDS OR Take 1 Cap by mouth daily. Disp: Rfl: povidone-iodine (AKA BETADINE) 10 % external solution Apply topically two times a day. Disp: 15 mL Rfl: 1 senna (AKA SENOKOT) 8.6 MG tablet Take 2 Tabs by mouth daily. USES 3 TABS IN THE AM & 2 TABS AT HS EVERY OTHER DAY. Disp: 30 Tab Rfl: 0 TRIMETHOPRIM OR Take 100 mg by mouth daily. Disp: Rfl: warfarin (AKA COUMADIN) 5 MG tablet Take 1 Tab by mouth daily. Adjust dose based on INR result as directed. Disp: 30 Tab Rfl: 11 . Allergies: Zaroxolyn. Family History Problem Relation ??? Cancer, Colon Mother ??? Cancer, Other Brother brother with throat cancer ??? Cancer, Breast Sister . History Social History Main Topics ??? Tobacco Use: Never ??? Alcohol Use: No ??? Drug Use: No Social History Narrative Wheelchair bound. Able to transfer from bed to wheelchair with assist of 1 at baseline. Lives with his in [place]. . Physical Examination: Vital Signs: Patient Vitals in the past 4 hrs: BP Temp Temp src Pulse Resp SpO2 Height Wt - Scale 05/04/10 1100 141/86 mmHg 97.5 ??F (36.4 ??C) Oral 84 18 96 % - - . Last 24 Hour Accucheck Glucose Results: Recent Labs Basename 05/03/10 2135 05/03/10 1721 ??? GLWB 111 119 General: Well developed, well nourished adult, in no apparent distress HEENT: Normocephalic, atraumatic. PERRL. MM moist. Neck: thyroid not enlarged. No lymphadenopathy. Chest/Lungs: Clear to auscultation. No wheezing or rales. Heart: Regular rate and rhythm, S1, S2 normal, No murmurs, gallops or rubs. Abdomen: Soft, without tenderness, guarding, mass, rebound or organomegaly. No erythema / cellulitis/ tenderness around baclofen pump site in right abd wall. Extremities: No cyanosis, clubbing or edema. Neurological: Alert and oriented to person, place and time. Power 4+/5 both UEs. Labs: Results for orders placed during the hospital encounter of 04/30/10 (from the past 24 hour(s)) VANCOMYCIN LEVEL Component Value Range ??? VANCOMYCIN 13.0 - (mcg/ml) GLUCOSE, WHOLE BLOOD POC Component Value Range ??? GLUCOSE, WHOLE BLOOD 119 70-180 (mg/dl) GLUCOSE, WHOLE BLOOD POC Component Value Range ??? GLUCOSE, WHOLE BLOOD 111 70-180 (mg/dl) CREATININE / GFR Component Value Range ??? CREATININE 0.70 0.66-1.25 (mg/dl) ? ? GFR, ESTIMATED >60.00 >60- (ml/min/1.73m2) ? ? GFR EST IF >60.00 >60- (ml/min/1.73m2) INR/PROTIME Component Value Range ??? PROTIME 22.9 (*) 12.0-14.5 (sec) ??? INR 1.9 - . CSF culture 04/30 & 05/01 : rare growth coag neg staph species. BCx : 04/29/10 : no growth UCx : 05/03/10 : 40,000 yeast. MRI thoracic spine :04/29/10 : 1. Large mildly enhancing fluid collection which measures 4 x 11 x 16 cm in the posterior soft tissues of the upper back which has appearance consistent with a pseudomeningocele. 2. The fluid collection extends to the posterior margin of the thecal sac in the region of the upperthoracic laminaplasties. 3. No evidence of a epidural hematoma or abscess. 4. Postoperative changes within the upper thoraciccord. CXR : 05/01 : The right internal jugular catheter has been removed. A right PICC line projects with tip over the the proximal right atrium. Increasing left basilar atelectasis. Heart size is normal. No pleural effusions. Venous dopplers 05/03/10 : Nonoccluding deep venous thrombosis is again seen within the right common femoral vein and the proximal right femoral vein. No significant change. The deep venous thrombosis seen previously within the proximal right profunda femoris pain is no longer visualized. Nonoccluding deep venous thrombosis again appears to be present within the proximal left femoral vein. No significant change. The nonoccluding deep venous thrombosis within the left common femoral vein seen previously is no longer visualized. No other deep venous thrombosis appreciated. CONCLUSION: Improving bilateral deep venous thrombosis. Assessment and Plan: 64 year old male, complicated Neurosurgical history including several surgeries for spinal ependymoma & XRT, paraplegia and baclofen pump placement, who is s/p Thoracic spinal ependymoma repair on 04/11/10. He was readmitted 04/30 with headache and fevers, found to have neutrophilic pleocytosis, elevated protein and low glucose in the spinal fluid concerning for bacterial meningitis vs post operative chemical meningitis. Cultures (obtained after initiation of antibiotics) are growing Coagulase negative staphylococcus. 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 He continues to have low grade fever & sweats inspite of appropriate antibiotics, raising concern for infected baclofen pump. - noted plans for re eval tomorrow, if fever persists, then probable repeat LP after reversal of coagulopathy. If repeat LP continues to grow any organisms, may need removal of baclofen pump sooner ? - infectious dis involved. - ct vanco & cefepime per ID recs Chronic DVT - s/p indwelling IVC filter since 1999 - coumadin on hold for potential LP - monitor INR Chronic constipation & neurogenic bladder - ct indwelling de la cruz - bowel regimen Time spent with patient was 80 minutes, over 50% of which was spent in counseling and coordinating care. Updated patient & his sister at bedside, all Questions answered. I will follow patient during this hospital stay, please call with Questions. Poonam Wallace MD [phone] 05/04/2010 Jessica Garcia - 05/01/2010 11:15 AM CDTAssociated Order(s): WOUND/SCARF GLUER CONSULT Wound/surgery center administrator Consult Note Was consulted by nursing to provide wound care recommendations to surgical site; will defer to the patient's primary team Neurosurgery to provide orders; spoke with RN who will contact NS to place orders. Please contact the wound care service with any further questions or concerns. [phone]. Jessica Breen MSN, RN, ANP, CWOCN [phone] pager [phone] office Radames Llamas - 04/30/2010 2:32 PM CDTAssociated Order(s): INFECTIOUS DISEASE INPT CONSULT I am asked to see this patient in consultation by Dr. Salgado for evaluation of meningitis. HPI This patient is a 64 yo male who is s/p thoracic ependymoma repair on 04/11/10. About 10 years ago, hehad presented with weakness of both lower extremities. He was found to have an ependymoma at T4-T5. He had resection of the tumor. Within a few month, he had recurrence requiring another resection. He then developed a fluid collection which required another surgery. Several years later, he had another recurrence which was treated with radiosurgery. The patient is noted to have near complete spinal cord deficit at that level due to displacement. He was also noted to have a subfascial fluid collection. He was taken for this procedure on 04/11. During the surgery, he was noted to have a fluid collection with brownish fluid. Cultures sent from this area were negative. There was also fibrotic material and debris. The surgical path showed recurrent ependymoma and a background of hemorrhage, organizing fibrosis and hemosiderin deposition. He wasnot sent out on any antibiotics. Initially he did well after discharge, but then he developed low grade fevers and a headache. He went to his local ED for evaluation on 04/24. He apparently had some hypoxia and an infiltrate on CXR. Hewas treated with ceftriaxone by IM followed by a 5 day course of azithromycin. He felt this did helpwith his symptoms. By 04/27, he was feeling well. The next day on 04/28, he developed an unrelenting headache and stiff neck. He again had low grade temps at home. He went to his ED where he was given increased pain medication for the headache. His symptoms persisted so he came to [facility] for evaluation. He denies any cough or shortness of breath. No visual changes. No mouth sores. No new focal weaknessor numbness. He has poor sensation below the T4 level. He denies any history of frequent infections. He has an indwelling de la cruz cath. He has been off his usual bowel program since his previous admission. He does not have any sick contacts at home. He is feeling better since his admission and initiation of antibiotics. The remainder of the ROS is completed and is otherwise negative. PMH: 1. Thoracic ependymoma with previous resection (his reports a total of 4 spinal surgeries) and cyberknife treatment, s/p radical thoracic tumor resection 04/11/10. 2. DVT on coumadin 3. HTN 4. Dyslipidemia 5. ITB pump placed in 2006, proximal catheter revision in 10/19. History of pump flipping prior to revision. 6. S/p hernia repair 7. S/p arthroscopic knee procedure Social history He lives in [place] with his . They have a dog at home. He is in a wheelchair. He spends his time doing things around the house. No tobacco. No ETOH. Family History: Mother colon ca Fathered Ruptured AAA Brother heart disease Brother throat cancer Sister- renal and breast ca Patient Vitals in the past 24 hrs: BP Temp Temp src Pulse Resp SpO2 Height Wt - Scale 04/30/10 1300 115/72 mmHg - - 97 12 98 % - - 04/30/10 1200 - 98 ??F (36.7 ??C) Oral - - - - - 04/30/10 0840 135/64 mmHg - - 105 20 96 % - - 04/30/10 0800 - 97.3 ??F (36.3 ??C) Oral - - - - - 04/30/10 0400 100/57 mmHg 98.6 ??F (37 ??C) Oral 104 21 96 % - - 04/30/10 0300 153/89 mmHg - - 105 18 94 % - - 04/30/10 0230 - 100.1 ??F (37.8 ??C) Oral - - - - - 04/30/10 0207 - - - - - - 5' 10 (1.778 m) 116.6 kg (257 lb 0.9 oz) 04/30/10 0200 157/99 mmHg - - 105 18 98 % - - 04/30/10 0145 137/88 mmHg - - 100 16 99 % - - 04/30/10 0137 134/81 mmHg 98.2 ??F (36.8 ??C) Oral 100 19 99 % - 116.6 kg (257 lb 0.9 oz) 04/29/10 2330 109/63 mmHg - - - - 97 % - - 04/29/10 2315 104/62 mmHg - - - - 97 % - - 04/29/10 2300 111/63 mmHg - - - - 97 % - - 04/29/10 2245 100/62 mmHg - - - - 97 % - - 04/29/10 2230 119/74 mmHg - - - - 96 % - - 04/29/10 2215 133/64 mmHg - - - - 96 % - - 04/29/10 2200 128/72 mmHg - - - - 97 % - - 04/29/102144 128/78 mmHg - - - - 98 % - - 04/29/10 2130 132/71 mmHg - - - - 96 % - - 04/29/10 2115 120/66 mmHg - - - - 96 % - - 04/29/10 2100 144/80 mmHg - - - - 98 % - - 04/29/10 2045 122/62 mmHg - - - - 97 % - - 04/29/10 2032 124/50 mmHg - - - - - - - 04/29/10 1815 182/83 mmHg - - - - 95 % - - 04/29/10 1800 175/96 mmHg - - - - 98 % - - 04/29/10 1745 177/95 mmHg - - - - 92 % - - 04/29/10 1730 174/83 mmHg - - - - 90 % - - 04/29/10 1715 175/85 mmHg 100.9 ??F (38.3 ??C) Oral - - 91 % - - 04/29/10 1700 153/79 mmHg - - - - 90 % - - 04/29/10 1630 171/89 mmHg - - - - 93 % - - 04/29/10 1600 132/65 mmHg - - - - 94 % - - 04/29/10 1517 132/81 mmHg 99.5 ??F (37.5 ??C) Oral 114 20 95 % - - BP 115/72 Pulse 97 Temp(Src) 98 ??F (36.7 ??C) (Oral) Resp 12 Ht 5' 10 (1.778 m) Wt 116.6 kg (257 lb 0.9 oz) SpO2 98% Pt A, in NAD answering questions appropriately Oropharynx: no lesions, no exudates No maxillary sinus tenderness Neck: supple, no adenopathy No axillary adenopathy Lungs: CTA anteriorly, no wheezing CV RRR s1s2 no murmur Abd: S/NT/ND +BS no guarding, no rebound, no masses, baclofen pump site benign Ext: no edema, NT Skin no rash IV site benign Wound not examined LABS: Spinal fluid gram stain negative Component Latest Reference Range 04/30/2010 SOURCE, SYN OTHER (SPECIFY) DESCRIPTION, CSF Hazy TUBE # 4 XANTHOCHROMIA Present RBC, CSF /ul 626 NUCLEATED CELLS, CSF 0 - 5 /ul 3135 (H) PMN'S-CSF % 74 LYMPHOCYTES-CSF % 9 MONOCYTE/MACROPHAGE % 17 Component Latest Reference Range 04/30/2010 SOURCE Cerebrospinal Fluid GLUCOSE, CSF 40 - 70 mg/dl 32 (L) Component Latest Reference Range 04/30/2010 SOURCE Cerebrospinal Fluid TOTAL PROTEIN, CSF 12 - 60 mg/dl 804 (H) Component Latest Reference Range 04/30/2010 WBC 4.0 - 11.0 k/ul 8.9 RBC 4.5 - 5.9 M/ul 3.20 (L) HGB 13.5 - 17.5 g/dl 9.7 (L) HCT 41.0 - 53.0 % 27.9 (L) MCV 80 - 100 fl 87.2 MCH 26 - 34 pg 30.1 MCHC 32 - 36 g/dl 34.6 RDW 11.5 - 14.5 % 14.3 PLTS 150 - 450 k/ul 295 MPV 6.5 - 10.0 fl 7.1 PMN/BAND 43 - 72 % 80 (H) LYMPH 17 - 43 % 13 (L) MONO 4 - 12 % 7 EOS 0 - 8 % 0 BASO 0 - 1 % 0 PMN ABSOLUTE 1.8 - 7.7 k/ul 7.1 LYMPH ABSOLUTE 1.0 - 4.8 k/ul 1.1 MONO ABSOLUTE 0.1 - 0.7 k/ul 0.6 EOS ABSOLUTE 0.0 - 0.5 k/ul 0.0 BASO ABSOLUTE 0.0 - 0.2 k/ul 0.0 Blood culture 04/29: no growth to date MRI thoracic spine 04/29: CONCLUSION: 1. Large mildly enhancing fluid collection which measures 4 x 11 x 16 cm in the posterior soft tissues of the upper back which has appearance consistent with a pseudomeningocele. 2. The fluid collection extends to the posterior margin of the thecal sac in the region of the upper thoracic laminaplasties. 3. No evidence of a epidural hematoma or abscess. 4. Postoperative changes within the upper thoracic cord. Abd X-ray: FINDINGS: Baclofen pump projecting over the right lower quadrant appears similar in orientation to the prior examination allowing for difference in positioning. A thin catheter or lead extends to the intrathecal space with the tip in the upper thoracic region. IVC filter in place. Nonobstructive bowel gas pattern. 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 The gram stain was negative. It is possible that the antibiotics given prior to the LP (vanco, meropenem) will inhibit growth, so this will need to be kept in mind even if cultures are negative. We will await results. He can come out of isolation at 1700 today as he would have received 24 hours of effective antibiotic therapy. I would continue treatment with vanco and meropenem for coverage of hospital acquired organisms including MRSA and GNR. We will adjust if cultures come back positive. He has a blood culture as well that is negative to date. A chemical meningitis could also be seen at this point, but the CSF parameters point more toward infection. He has a fluid collection seen on MRI which is felt to be an expected postoperative finding. We willkeep this in mind as another potential site of infection if he does not respond to therapy and aspirate if needed. He also has a baclofen pump in place that has a catheter into the CSF. This could certainly become secondarily infected. I don't think it needs to be removed immediately today as he is stable, but I think removal will need to be considered as a means of managing this infection. RECS: Continue vancomycin and meropenem Await CSF culture results OK to come out of isolation at 1700 today Will need to have discussion with rehab regarding removal of the baclofen pump (not urgent today as he is doing well) If he is not improving, aspiration of the collection could also be considered ID will continue to follow Radames Llamas MD 04/30/2010 Cristine Henson - 04/30/2010 2:27 PM CDTAssociated Order(s): PM&R INPT CONSULT Asked by Dr. Rowell to evaluate patient for side-port access for CSF sample. See progress note dated 04/30/2010 at 01:03 for remainder of consult note. documented in this encounter OR Notes H&P - Maurice Baron - 04/29/2010 4:55 PM CDT Neurosurgery History and Physical (MD) Chief Complaint: Chief Complaint Patient presents with ??? HEADACHE--ED recent back surgery HPI: This is a 64 yr male admitted to [facility] on 04/29/2010 3:00 PM with No diagnosis found. Pt had thoracic tumor debulking 04/11. For past several days pt has had constant headache with episodic flares of pain over entire head as well as neck stiffness and pain. Low-grade fevers at home. No wound problems. Pt has chronic de la cruz. Past Medical History: See EPIC Thoracic ependymoma debulking 04/11 Medications Prior to Admission: Outpatient prescriptions as of 04/29/2010: acetaminophen (AKA TYLENOL) 325 MG tablet Take 1-2 Tabs by mouth every 4 hours as needed for Pain. Disp: 120 Tab Rfl: 1 atorvastatin (LIPITOR) 40 MG tablet Take 1 Tab by mouth daily. Disp: Rfl: azithromycin (ZITHROMAX) 250 MG tablet Take by mouth . Take two tablets on the first day, and take one tablet each day on days 2-5 Disp: Rfl: baclofen (AKA LIORESAL) 10 MG tablet Take 2 Tabs by mouth two times a day as needed. Disp: 20 Tab Rfl: 0 BACLOFEN IT 220 mcg by Intrathecal route daily. Disp: Rfl: citalopram (AKA CELEXA) 40 MG tablet Take 40 mg by mouth daily. Disp: Rfl: cyclobenzaprine (AKA FLEXERIL) 10 MG tablet Take 10 mg by mouth two times a day. Disp: Rfl: docusate sodium (AKA ENEMEEZ) 283 MG enema Insert 5 mL rectally daily as needed. PT. USES ENEMA EVERY OTHER DAY. Disp: 15 Each Rfl: 0 ferrous sulfate 325 (65 FE) MG tablet Take 1 Tab by mouth daily with breakfast. Disp: 60 Tab Rfl: 0 Gabapentin (AKA NEURONTIN) 100 MG tablet Take 2 Tabs by mouth three times a day. Disp: Rfl: lactulose 10 GM/15ML solution Take 30 mL by mouth two times a day as needed. For constipation Disp: 240 mL Rfl: 0 LORazepam (AKA ATIVAN) 0.5 MG tablet Take 2 Tabs by mouth three times a day. Disp: Rfl: OMEGA-3 FATTY ACIDS OR Take 1 Cap by mouth daily. Disp: Rfl: povidone-iodine (AKA BETADINE) 10 % external solution Apply topically two times a day. Disp: 15 mL Rfl: 1 senna (AKA SENOKOT) 8.6 MG tablet Take 2 Tabs by mouth daily. USES 3 TABS IN THE AM & 2 TABS AT HS EVERY OTHER DAY. Disp: 30 Tab Rfl: 0 TRIMETHOPRIM OR Take 100 mg by mouth daily. Disp: Rfl: warfarin (AKA COUMADIN) 5 MG tablet Take 1 Tab by mouth daily. Adjust dose based on INR result as directed. Disp: 30 Tab Rfl: 11 Allergies: Zaroxolyn No family history on file. History Social History ??? Marital Status: Spouse Name: N/A Number of Children: N/A ??? Years of Education: N/A Social History Main Topics ??? Tobacco Use: Never ??? Alcohol Use: No ??? Drug Use: No ??? Sexually Active: Yes -- Female partner(s) Other Topics Concern ??? Not on file Social History Narrative ??? No narrative on file Functional History: Mobility: paraplegic Review of Systems: The remainder of the complete review of systems is negative except for HPI. OBJECTIVE Patient Vital Signs in the past 24 hrs: Height Wt - Scale Temp Temp src Pulse BP Resp SpO2 Oximetry Done On 04/29/10 1517 - - 99.5 ??F (37.5 ??C) Oral 114 132/81 mmHg 20 95 % RA Exam: Gen: sitting up in bed, teeth clenched, tremulous Pain with neck flexion or shaking head Neuro: Eyes: pupils 3mm, reactive Gait: not tested due to medical condition Strength: 5/5 and symmetric throughout BUE, 0 BLE Muscle tone not increased, (-) clonus at ankles, no pronator drift AAOx3 Attention span and concentration preserved CN II: visual kc not tested CN III, IV, : EOMI CN V: facial sensation intact CN VII: face symmetric CN VIII: hearing intact bilat CN IX: spontaneous palate movement CN XI: shrug 5/5 bilat CN XII: tongue midline Sensation intact to LT in BUE DTRs not tested Wound C/D/I; discoloration from iodine solution ASSESSMENT Concern for postoperative meningitis PLAN T spine MR before LP Broad spectrum Abx Pain control Yomi Miller MD I have examined the patient and reviewed the plan of care and agree with the previous note. Maurice Baron MD 05/24/2010, 11:19 AM --- End of Report --- documented in this encounter ED Notes J Carlos Montez - 04/30/2010 7:37 AM CDT ED Signout Note Jie Cullen is a 64 yr male who was signed out to me by Manfred Blair at 23:00. The patient is awaiting CSF access. PM&R resident unable to access CSF from baclofen pump despite multipleattempts, please see her note for details. Pt has already received antibiotics so will defer to inpatient team, may need fluoro or U/S guided access. Pt did not require further intervention on my part. Author: J Carlos Montez MD - 04/30/2010 7:37 AM Tami Rojo RN - 04/30/2010 1:23 AM CDT Taken to floor on monitor and RN escort. Tami Rojo RN - 04/30/2010 12:13 AM CDT Report from Macy PADILLA Paulina Gale - 04/29/2010 11:39 PM CDT To xray per cart Paulina Gale - 04/29/2010 11:17 PM CDT Rehab MD here attempting to access baclofen pump for CSF without success Awaiting further orders anddisposition Manfred Blair Eren - 04/29/2010 10:18 PM CDT DATE OF SERVICE: 04/29/2010 CHIEF COMPLAINT: Headache. 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 Says that it is throbbing but sharp with any type of movement. Hurts with flexion of the neck and shaking of his head. Gradual onset over the last few days, worsening with time, now not relieved with any type of pain medication. He was seen yesterday at an outside hospital. CT scan of the head was negative for any intraparenchymal bleed. They did entertain the possibility of doing an LP but due to his recent instrumentation decided that they would not do so. He does have a baclofen pump in place. He was treated for pneumonia on 04/24 with a Z-Guerrero and Rocephin after he was having some upper respiratory symptoms and fevers. Fevers went away; but now over the last 2 days, fevers have returned, low grade. He has had no neurologic deficits of any kind. He has had no nausea or vomiting; no diarrhea or constipation; no chills or night sweats; no other constitutional symptoms. Otherwise, has been in his normal state of health. 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 Differential diagnosis includes pseudomeningocele, meningitis, encephalitis, migraine headache, intracranial bleed. The patient's vital signs were significant for fever of 100.9, tachycardia of 114; but vitals did resolve by the time he returned from MRI. He had adequate pain medication, some Valium for relaxation and spasm in the MRI machine. His labs are significant for slightly elevated white blood count count of 11.3. Otherwise, no significant findings. The MR thoracic spine was significant for a large, mildly enhancing fluid collection 4 x 11 x 16 cm in the posterior soft tissues of the upper back which didnot appear to be a spinal epidural abscess which is also in the differential. His white count is notsignificantly elevated. He does not appear to be having a severe inflammatory reaction at this time. Therefore, I do not believe this is an abscess. However, we are very concerned for meningitis given the pain with flexion of the neck, fever, and headache. Therefore, he was put on precautions immediately and moved to an isolation room. He was made very comfortable with Dilaudid and says his pain was under good control. We consulted neurosurgery immediately and asked for the MR thoracic spine. Then the physician who maintains baclofen pumps came and said that she would be able to pull CSF fluid off of the baclofen pump, so an LP would not be necessary. At this time, we are awaiting the site port access. At the time of dictation, we are awaiting the CSF to be drawn. In the meantime, the patient was given vancomycin, ceftriaxone immediately for coverage, and a CSF panel was ordered. At this time, the patient is awaiting admission to neurosurgery for most likely complication of prior surgery leading to pseudomeningocele. The patient remained stable throughout his stay here and was signed out at approximately 10:30 p.m. MD davon Connell Dictated: 04/29/2010 22:18:42 Transcribed: 04/29/2010 23:14:32 Doc #: [id number] cc: 1 Page 1 Patient Name: JIE CULLEN Visit Date: 04/29/2010 EMERGENCY MEDICINE NOTE CONFIDENTIAL MEDICAL RECORD [address] [id number] Page 1 Patient: [facility]ULL[id number] Date of : 1945 Age: 64Y Visit Date: 04/29/2010 EMERGENCY MEDICINE NOTE Alia Negron - 04/29/2010 9:58 PM CDT [facility] Clothing List Patient Name: Jie Cullen Today's Date: 04/29/2010 Clothing: footwear;pants;shirt;socks;underwear Clothing-Other: 0 Disposition of Clothing: Kept with Patient Glasses/Contacts: Glasses Disposition of Glasses/Contacts: Kept with Patient Hearing Aid: No Dentures: No Cell Phone: No Pager: No Medications: No Equipment: Yes Description of Equipment:: Wheelchair Disposition of Equipment: Kept with Patient Miscellaneous: No Weapons: No I understand that I assume full responsibility for all clothing/personal items retained by me in my hospital room. Any personal items left at the hospital will be disposed of if they are not claimed within 30 days of discharge. Signature of Patient OR Name of person taking items home: Relationship of person taking items home: Signature of person taking item home: Signature ___ JOEL Magdaleno Signature ___ (Receiving Nursing Unit) I have received all of my belongings at discharge: Patient Signature: Date: Staff Signature: Date: --- End of Report --- Alia Negron - 04/29/2010 9:58 PM CDT [facility] Patient's Valuables At Admission Patient Name: Jie Cullen Money Paper $: 0 Coins $: 0 Disposition of Money: Not Applicable Checkbook Checkbook: No Credit Cards/Licenses Name of Credit Cards: 0 Number of Credit Cards: 0 Social Security Card: No Passport: No Drivers' License: No Government ID: No Disposition of Cards/Licenses: Not Applicable Jewelry Jewelry: No Description of Jewelry: 0 Disposition of Jewelry: Kept with Patient Watch Watch: No Homestead Homestead #: 0 Items Belonging to Other People Items Belonging to Other People: No No items were sent to the Medical Scribe's Office. Any unclaimed personal items deposited into the custody of the hospital will be disposed of by the hospital if they are not claimed within 180 days of discharge. Patients' Signature Witness Bone Grinder Box Toe Stitcher's Signature Witness (Print this note to be included in the patient valuables pouch.) I have received all of my belongings at discharge: Patient Signature: Date: Staff Signature: Date: --- End of Report --- Paulina Gale - 04/29/2010 8:14 PM CDT Patient returned from MRI states he feels better now after the valium and dilaudid and sister At bedside awaiting test results Paulina Gale - 04/29/2010 6:37 PM CDT Patient to MRI Wearing mask Zelalem Dick - 04/29/2010 4:35 PM CDT [facility] Emergency Department Attending Supervision Note I performed the lee elements of history and exam, and agree with resident's findings and plan of care as discussed with Dr. Manfred Blair. I have reviewed and agreed with the PMH, FH, SOC, ROS. Please see today's note by resident physician. PE: BP 132/81 Pulse 114 Temp(Src) 99.5 ??F (37.5 ??C) (Oral) Resp 20 SpO2 95% CV: sinus tachycardia, no m/r/g Pulm: CTAB, no w/r/r Abd: soft, NT, ND, no rebound or guarding Ext: no c/c/e, paraplegic Neuro: 0/5 strength BLE, 5/5 strength equal BLE, sensation intact bilateral UEs, locomotive boilermaker II-XII grossly intact Assessment: 64 yo male here with fever, FIELDS, neck pain concerning for meningitis vs. 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 Labs show WBC 11.3, Hgb 10.4, otherwise unremarkable. MRI thoracic spine shows a large [id number] cm pseudomeningocoele with direct communication to the overlying area that was operated on to the thecal sac. Case discussed with neurosurgery and rehab for the baclofen pump. Rehab will draw the CSF of the baclofen pump. CSF studies pending but abx already started. Neurosurgery will admit the patient. General radiology studies were reviewed by me. 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 Gradual onset over 2 days worsening with time now not relieved with pain medication. Tx'd for PNA on 04/24 with z-pac and rocephin. Now with low grade fevers, but neuro deficits. HPI Meds: Prior Encounter Medications Medication Sig Dispense Refill ??? acetaminophen (AKA TYLENOL) 325 MG tablet Take 1-2 Tabs by mouth every 4 hours as needed for Pain. 120 Tab 1 ??? atorvastatin (LIPITOR) 40 MG tablet Take 1 Tab by mouth daily. ??? azithromycin (ZITHROMAX) 250 MG tablet Take by mouth . Take two tablets on the first day, and take one tablet each day on days 2-5 ??? baclofen (AKA LIORESAL) 10 MG tablet Take 2 Tabs by mouth two times a day as needed. 20 Tab 0 ??? BACLOFEN IT 220 mcg by Intrathecal route daily. ??? citalopram (AKA CELEXA) 40 MG tablet Take 40 mg by mouth daily. ??? cyclobenzaprine (AKA FLEXERIL) 10 MG tablet Take 10 mg by mouth two times a day. ??? docusate sodium (AKA ENEMEEZ) 283 MG enema Insert 5 mL rectally daily as needed. PT. USES ENEMA EVERY OTHER DAY. 15 Each 0 ??? ferrous sulfate 325 (65 FE) MG tablet Take 1 Tab by mouth daily with breakfast. 60 Tab 0 ??? Gabapentin (AKA NEURONTIN) 100 MG tablet Take 2 Tabs by mouth three times a day. ??? lactulose 10 GM/15ML solution Take 30 [...] INR result as directed. 30 Tab 11 Allergies:Zaroxolyn PMH: No past medical history on file. No past surgical history on file. History Substance Use Topics ??? Tobacco Use: Never ??? Alcohol Use: No No family history on file. ROS Vital signs: BP 132/81 Pulse 114 Temp(Src) 99.5 ??F (37.5 ??C) (Oral) Resp 20 SpO2 95% Physical Exam Filed Vitals: 04/29/2010 9:15 PM 04/29/2010 9:30 PM 04/29/2010 9:45 PM 04/29/2010 10:00 PM BP: 120/66 132/71 128/78 128/72 Pulse: Temp: TempSrc: Resp: SpO2: 96% 96% 98% 97% General: The patient is alert and oriented x 3 in no acute distress, calm and cooperative without diaphoresis. HEENT: Normocephalic/atraumatic . Pupils equal, round, reactive to light, no scleral icterus, no conjunctival pallor. Nares are patent bilaterally. Oropharynx clear, no lesion or exudate. Neck has signs of meningismus with pain on passive flexion of neck, no JVD, no bruits . CHEST: Lungs clear to auscultation bilaterally, no wheezes, rales or rhonchi. HEART: tachycardic No murmurs, rubs or gallops. ABDOMEN: soft, nondistended non tender to light or deep palpation w/o guarding, bs present, no high-pitched rushes or bruits, no organomegaly or pulsitile mass. EXTREMITIES: warm and well-perfused, dependent edema B LE unchanged per pt. Radial, PT and DP pulses2+, symmetric bilaterally. NEUROLOGIC: The patient is oriented x 3, GCS 15. Moves extremities spontaneously. Sensation to lighttouch intact over upper extremities, diminished in LE B. 0/5 strength B LE. Skin warm and dry. CN II-XII intact grossly without deficit. Medical Decision Making: Dictation: [id number] Condition on disposition: Stable Manfred Blair MD 04/29/2010, 10:21 PM Patient seen with: Zelalem Dick Paulina Gale - 04/29/2010 3:47 PM CDT Patient here thru triage with Had surgery April 11 for resection of thoracic spinal cord tumor has been having headaches and neck pain But states he was having headaches before the surgery Was seen at ED close to home last evening and sent home with Vicodin Was told to come here to see Neurosurgery If pain continues Kandi Paredes - 04/29/2010 3:13 PM CDT Pt is here with increase in head and neck pain,(past 24 hours) had a tumor removed from spinal cord (t4 and t-5) on April 11. Was seen in [place] last pm and had CT, IV's and went home on Vicodin. Pain has not improved. Alert, no visual or mental status changes. documented in this encounter Miscellaneous Notes Media - [employer], PROVIDER - 06/26/2010 12:00 AM CDT Media - [employer], PROVIDER - 05/13/2010 12:00 AM CDT Media - [employer], PROVIDER - 05/12/2010 12:00 AM CDT Media - [employer], PROVIDER - 05/09/2010 12:00 AM CDT Media - [employer], PROVIDER - 05/09/2010 12:00 AM CDT Media - [employer], PROVIDER - 04/30/2010 12:00 AM CDT documented in this encounter Plan of Treatment Not on filedocumented as of this encounter Procedures Procedure Name Priority Date/Time Associated Comments Diagnosis COAG HOLD (BLUE Routine 05/13/2010 6:40 AM Result s for this TUBE) CDT procedure are i n the results section. INR/PROTIME Routine 05/13/2010 6:40 AM Results f or this CDT procedure are i n the results section. GLUCOSE, WHOLE BLOOD Routine 05/12/2010 9:26 PM R esults for this POCT CDT procedure are i n the results section. GLUCOSE, WHOLE BLOOD Routine 05/12/2010 5:32 PM R esults for this POCT CDT procedure are i n the results section. GLUCOSE, WHOLE BLOOD Routine 05/12/2010 12:16 Res ults for this POCT PM CDT procedure are i n the results section. GLUCOSE, WHOLE BLOOD Routine 05/12/2010 8:17 AM R esults for this POCT CDT procedure are i n the results section. GLUCOSE, WHOLE BLOOD Routine 05/11/2010 6:53 PM R esults for this POCT CDT procedure are i n the results section. GLUCOSE, WHOLE BLOOD Routine 05/11/2010 12:03 Res ults for this POCT PM CDT procedure are i n the results section. URINE CULTURE Routine 05/11/2010 10:44 Results fo r this AM CDT procedure are i n the results section. UA CONDITIONAL UC Routine 05/11/2010 10:44 Result s for this AM CDT procedure are i n the results section. GLUCOSE, WHOLE BLOOD Routine 05/11/2010 8:09 AM R esults for this POCT CDT procedure are i n the results section. COMPLETE BLOOD Routine 05/11/2010 6:00 AM Results for this COUNT-W/DIFF CDT procedure are i n the results section. GLUCOSE, WHOLE BLOOD Routine 05/10/2010 9:32 PM R esults for this POCT CDT procedure are i n the results section. GLUCOSE, WHOLE BLOOD Routine 05/10/2010 5:16 PM R esults for this POCT CDT procedure are i n the results section. GLUCOSE, WHOLE BLOOD Routine 05/10/2010 12:10 Res ults for this POCT PM CDT procedure are i n the results section. UA WITH MICROSCOPIC Routine 05/10/2010 11:30 Resu lts for this AM CDT procedure are i n the results section. GLUCOSE, WHOLE BLOOD Routine 05/10/2010 7:42 AM R esults for this POCT CDT procedure are i n the results section. BASIC METABOLIC Routine 05/10/2010 6:26 AM Result s for this PANEL CDT procedure are i n the results section. GLUCOSE, WHOLE BLOOD Routine 05/09/2010 9:36 PM R esults for this POCT CDT procedure are i n the results section. GLUCOSE, WHOLE BLOOD Routine 05/09/2010 5:36 PM R esults for this POCT CDT procedure are i n the results section. AEROBIC CULTURE Routine 05/09/2010 2:04 PM Result s for this CDT procedure are i n the results section. ANAEROBIC CULTURE Routine 05/09/2010 2:04 PM Resu lts for this CDT procedure are i n the results section. FUNGUS Routine 05/09/2010 2:04 PM Results f or this CULTURE,MISCELLANEOU CDT procedu re are in S the results section. FIRST CSF CELL COUNT Routine 05/09/2010 1:00 PM R esults for this & DIFF CDT procedure are i n the results section. SPINAL FLUID CULTURE Routine 05/09/2010 1:00 PM R esults for this & SMEAR CDT procedure are i n the results section. AEROBIC CULTURE Routine 05/09/2010 1:00 PM Result s for this CDT procedure are i n the results section. ANAEROBIC CULTURE Routine 05/09/2010 1:00 PM Resu lts for this CDT procedure are i n the results section. ANAEROBIC CULTURE Routine 05/09/2010 1:00 PM Resu lts for this CDT procedure are i n the results section. FUNGUS Routine 05/09/2010 1:00 PM Results f or this CULTURE,MISCELLANEOU CDT procedu re are in S the results section. FUNGUS Routine 05/09/2010 1:00 PM Results f or this CULTURE,MISCELLANEOU CDT procedu re are in S the results section. CSF, GLUCOSE Routine 05/09/2010 1:00 PM Results f or this CDT procedure are i n the results section. CSF TOTAL PROTEIN Routine 05/09/2010 1:00 PM Resu lts for this CDT procedure are i n the results section. CYTOLOGY, NON-CHOKER SETTER Routine 05/09/2010 1:00 PM Resu lts for this (FLUIDS,SPUTUM) CDT procedure ar e in the results section. REPLACEMENT BACLOFEN Inpatient 05/09/2010 12:20 INFECTION-THORAC IC PUMP PM CDT Case Notes REVISION OF BACLOFEN PUMP CA THETER APTT (ACTIVATED PARTIAL Routine 05/09/2010 7:05 AM CDT Results for this THROMBOPLASTIN TIME procedur e are in the results section . ABO RH & ANTIBODY SCREEN Routine 05/09/2010 4:00 AM CDT Results for this (TYPE & SCREEN) procedure ar e in the results section . APTT (ACTIVATED PARTIAL STAT 05/09/2010 3:59 AM CDT Results for this THROMBOPLASTIN TIME procedur e are in the results section . INR/PROTIME STAT 05/09/2010 3:59 AM CDT Resul ts for this procedure are i n the results section . GOLD HOLD TUBE (OR RED/RIGGS) Routine 05/08/2010 7:00 AM CDT Results for this procedure are i n the results section . BASIC METABOLIC PANEL Routine 05/08/2010 7:00 AM CDT Results for this procedure are i n the results section . SODIUM, URINE RANDOM Routine 05/08/2010 7:00 AM CDT Results for this procedure are i n the results section . OSMOLALITY, URINE Routine 05/08/2010 7:00 AM CDT Results for this procedure are i n the results section . OSMOLALITY Routine 05/08/2010 7:00 AM CDT Resul ts for this procedure are i n the results section . INR/PROTIME Routine 05/08/2010 7:00 AM CDT Resul ts for this procedure are i n the results section . GLUCOSE, WHOLE BLOOD POCT Routine 2010 9:24 PM CDT Results for this procedure are i n the results section . GLUCOSE, WHOLE BLOOD POCT Routine 2010 5:18 PM CDT Results for this procedure are i n the results section . GLUCOSE, WHOLE BLOOD POCT Routine 2010 12:08 PM CDT Results for this procedure are i n the results section . GLUCOSE, WHOLE BLOOD POCT Routine 2010 7:27 AM CDT Results for this procedure are i n the results section . MAGNESIUM Routine 2010 6:05 AM CDT Resul ts for this procedure are i n the results section . PHOSPHORUS Routine 2010 6:05 AM CDT Resul ts for this procedure are i n the results section . INR/PROTIME Routine 2010 6:05 AM CDT Resul ts for this procedure are i n the results section . BASIC METABOLIC PANEL Routine 05/06/2010 11:00 PM CDT Results for this procedure are i n the results section . COMPLETE BLOOD COUNT-NO DIFF Routine 05/06/2010 11:00 PM CDT Results for this procedure are i n the results section . GLUCOSE, WHOLE BLOOD POCT Routine 05/06/2010 9:06 PM CDT Results for this procedure are i n the results section . GLUCOSE, WHOLE BLOOD POCT Routine 05/06/2010 5:27 PM CDT Results for this procedure are i n the results section . GLUCOSE, WHOLE BLOOD POCT Routine 05/06/2010 11:56 AM CDT Results for this procedure are i n the results section . GLUCOSE, WHOLE BLOOD POCT Routine 05/06/2010 7:30 AM CDT Results for this procedure are i n the results section . INR/PROTIME Routine 05/06/2010 5:55 AM CDT Resul ts for this procedure are i n the results section . GLUCOSE, WHOLE BLOOD POCT Routine 05/05/2010 8:53 PM CDT Results for this procedure are i n the results section . GLUCOSE, WHOLE BLOOD POCT Routine 05/05/2010 5:19 PM CDT Results for this procedure are i n the results section . GLUCOSE, WHOLE BLOOD POCT Routine 05/05/2010 12:10 PM CDT Results for this procedure are i n the results section . GLUCOSE, WHOLE BLOOD POCT Routine 05/05/2010 7:43 AM CDT Results for this procedure are i n the results section . VANCOMYCIN LEVEL Routine 05/05/2010 6:15 AM CDT R esults for this procedure are i n the results section . INR/PROTIME Routine 05/05/2010 6:15 AM CDT Resul ts for this procedure are i n the results section . CREATININE / GFR Routine 05/04/2010 4:00 AM CDT R esults for this procedure are i n the results section . INR/PROTIME Routine 05/04/2010 4:00 AM CDT Resul ts for this procedure are i n the results section . GLUCOSE, WHOLE BLOOD POCT Routine 05/03/2010 9:35 PM CDT Results for this procedure are i n the results section . VANCOMYCIN LEVEL Routine 05/03/2010 5:45 PM CDT R esults for this procedure are i n the results section . GLUCOSE, WHOLE BLOOD POCT Routine 05/03/2010 5:21 PM CDT Results for this procedure are i n the results section . URINE CULTURE Routine 05/03/2010 2:30 PM CDT Resu lts for this procedure are i n the results section . UA WITH MICROSCOPIC Routine 05/03/2010 2:30 PM CDT Results for this procedure are i n the results section . US LOWER EXTREMITY BILAT Routine 05/03/2010 1:44 PM CDT Results for this VENOUS DOPPLER procedure are in the results section . INR/PROTIME Routine 05/03/2010 8:30 AM CDT Resul ts for this procedure are i n the results section . VANCOMYCIN LEVEL Routine 05/01/2010 7:40 PM CDT R esults for this procedure are i n the results section . US FNA SUPERFICIAL Routine 05/01/2010 2:50 PM CDT Results for this procedure are i n the results section . AEROBIC CULTURE Routine 05/01/2010 2:35 PM CDT Re sults for this procedure are i n the results section . ANAEROBIC CULTURE Routine 05/01/2010 2:35 PM CDT Results for this procedure are i n the results section . XR PORTABLE CHEST 1 VIEW Routine 05/01/2010 1:25 PM CDT Results for this procedure are i n the results section . COMPLETE BLOOD COUNT-NO DIFF Routine 05/01/2010 6:15 AM CDT Results for this procedure are i n the results section . INR/PROTIME Routine 05/01/2010 6:15 AM CDT Resul ts for this procedure are i n the results section . FL LUMBAR PUNCTURE (FOR CSF) Routine 04/30/2010 11:34 AM CDT Results for this procedure are i n the results section . FIRST CSF CELL COUNT & DIFF STAT 04/30/2010 11:00 AM CDT Results for this procedure are i n the results section . SPINAL FLUID CULTURE & SMEAR Routine 04/30/2010 11:00 AM CDT Results for this procedure are i n the results section . ANAEROBIC CULTURE Routine 04/30/2010 11:00 AM CDT Results for this procedure are i n the results section . CSF, GLUCOSE STAT 04/30/2010 11:00 AM CDT Resu lts for this procedure are i n the results section . CSF TOTAL PROTEIN STAT 04/30/2010 11:00 AM CDT Results for this procedure are i n the results section . COMPLETE BLOOD COUNT-W/DIFF Routine 04/30/2010 6:19 AM CDT Results for this procedure are i n the results section . BASIC METABOLIC PANEL Routine 04/30/2010 6:19 AM CDT Results for this procedure are i n the results section . MAGNESIUM Routine 04/30/2010 6:19 AM CDT Resul ts for this procedure are i n the results section . PHOSPHORUS Routine 04/30/2010 6:19 AM CDT Resul ts for this procedure are i n the results section . MRSA ADMIT SCREEN Routine 04/30/2010 1:45 AM CDT Results for this procedure are i n the results section . XR ABD AP/OBLS/LAT STAT 04/30/2010 12:24 AM CDT Results for this procedure are i n the results section . EKG IP 04/30/2010 12:00 AM CDT Resu lts for this procedure are i n the results section . MR THORACIC SPINE W/WO IV STAT 04/29/2010 8:10 PM CDT Results for this CONT procedure are i n the results section . GOLD HOLD TUBE (OR RED/RIGGS) Routine 04/29/2010 5:11 PM CDT Results for this procedure are i n the results section . BLOOD CULTURE Routine 04/29/2010 5:11 PM CDT Resu lts for this procedure are i n the results section . COAG HOLD (BLUE TUBE) Routine 04/29/2010 5:11 PM CDT Results for this procedure are i n the results section . BB HOLD TUBE (REGIONS ONLY) Routine 04/29/2010 5:11 PM CDT Results for this procedure are i n the results section . BASIC METABOLIC PANEL STAT 04/29/2010 5:11 PM CDT Results for this procedure are i n the results section . COMPLETE BLOOD COUNT-NO DIFF STAT 04/29/2010 5:11 PM CDT Results for this procedure are i n the results section . documented in this encounter Results COAG HOLD (BLUE TUBE) (05/13/2010 6:40 AM CDT) athologist Signature Coag Hold Held in [facility] Coag Rack for 8 hours Specimen Anatomical Collection Method Collection Time Receive d Time (Source) Location / / Volume Laterality 05/13/2010 6:40 AM 0 7:05 CDT AM CDT Maurice Baron MD LAB_1 Performing Organization Address City/[facility]/ZIP Code Phon e Number [address] [address] [place], [place] [phone] (ABNORMAL) INR/PROTIME (05/13/2010 6:40 AM CDT) athologist Signature Protime 17.0 (H) 12.0 - 14.5 REGIONS sec INR 1.4 REGIONS Specimen Anatomical Collection Method Collection Time Receive d Time (Source) Location / / Volume Laterality 05/13/2010 6:40 AM 0 7:05 CDT AM CDT Maurice Baron MD LAB_1 Performing Organization Address [facility] Phon e Number [address] [address] [place], [place] [phone] GLUCOSE, WHOLE BLOOD POC (05/12/2010 9:26 PM CDT) athologist Signature Glucose, Whole 138 70 - 180 REGIONS Blood mg/dl Comment: Point of Care Testing RN Notified Specimen Anatomical Collection Method Collection Time Receive d Time (Source) Location / / Volume Laterality 05/12/2010 9:26 PM 0 9:32 CDT PM CDT Maurice Baron MD LAB_1 Performing Organization Address City/[facility]/ZIP [facility] Phon e Number [address] [address] [place], [place] [phone] GLUCOSE, WHOLE BLOOD POC (05/12/2010 5:32 PM CDT) P athologist Signature Glucose, Whole 142 70 - 180 REGIONS Blood mg/dl Comment: Point of Care Testing RN Notified Specimen Anatomical Collection Method Collection Time Receive d Time (Source) Location / / Volume Laterality 05/12/2010 5:32 PM 0 5:38 CDT PM CDT Maurice Baron MD LAB_1 Performing Organization Address [facility] Phon e Number [address] [address] [place], [place] [phone] GLUCOSE, WHOLE BLOOD POC (05/12/2010 12:16 PM CDT) athologist Signature Glucose, Whole 101 70 - 180 REGIONS Blood mg/dl Comment: Point of Care Testing RN Notified Specimen Anatomical Collection Method Collection Time Receive d Time (Source) Location / / Volume Laterality 05/12/2010 12:16 05/12/2010 PM CDT 12:34 PM CDT Maurice Baron MD LAB_1 Performing Organization Address City/[facility] Phon e Number [address] [address] [place], [place] [phone] GLUCOSE, WHOLE BLOOD POC (05/12/2010 8:17 AM CDT) athologist Signature Glucose, Whole 129 70 - 180 REGIONS Blood mg/dl Comment: Point of Care Testing RN Notified Specimen Anatomical Collection Method Collection Time Receive d Time (Source) Location / / Volume Laterality 05/12/2010 8:17 AM 0 CDT 11:58 AM CDT Maurice Baron MD LAB_1 Performing Organization Address City/[facility] Phon e Number [address] [address] [place], [place] [phone] GLUCOSE, WHOLE BLOOD POC (05/11/2010 6:53 PM CDT) athologist Signature Glucose, Whole 119 70 - 180 REGIONS Blood mg/dl Comment: Point of Care Testing RN Notified Specimen Anatomical Collection Method Collection Time Receive d Time (Source) Location / / Volume Laterality 05/11/2010 6:53 PM 07/01/201 0 6:56 CDT PM CDT Maurice Baron MD LAB_1 Performing Organization Address [facility] Phon e Number [address] [address] [place], [place] [phone] GLUCOSE, WHOLE BLOOD POC (05/11/2010 12:03 PM CDT) P athologist Signature Glucose, Whole 133 70 - 180 REGIONS Blood mg/dl Comment: Point of Care Testing RN Notified Specimen Anatomical Collection Method Collection Time Receive d Time (Source) Location / / Volume Laterality 05/11/2010 12:03 05/11/2010 2:02 PM CDT PM CDT Maurice Baron MD LAB_1 Performing Organization Address [facility] Phon e Number [address] [address] [place], [place] [phone] URINE CULTURE (05/11/2010 10:44 AM CDT) [facility] [email or web address] Method Time Signature Specimen Urine REGIONS Description Special Unspecified REGIONS Requests Culture No Growth After REGIONS 1 Day Report Status Final REGIONS 05/12/2010 Specimen Anatomical Collection Method Collection Time Receive d Time (Source) Location / / Volume Laterality 05/11/2010 10:44 05/11/2010 1:09 AM CDT PM CDT Maurice Baron MD LAB_1 Performing Organization Address [facility] Phon e Number [address] [address] [place], [place] [phone] (ABNORMAL) UA CONDITIONAL UC (05/11/2010 10:44 AM CDT) [id number] Method Time Signature Urine Color None REGIONS Urine Clarity Clear REGIONS Specific 1.004 (L) 1.005 - REGIONS [place],Ur 1.03 pH, Urine 6.0 4.5 - 8.0 REGIONS Protein, Urine Negative NEG mg/dl REGIONS Qual Glucose, Urine Negative NEG mg/dl REGIONS Qual Ketones, Urine Negative NEG mg/dl REGIONS Urobil, Urine <2.0 <2.0 mg/dl REGIONS Qual Bilirubin, Negative NEG REGIONS Urine Blood, Urine Negative NEG REGIONS Nitrite, Urine Negative NEG REGIONS Leukocyte Trace (A) NEG REGIONS Est., Ur RBC'S 1 0 - 3 /hpf REGIONS WBC'S 5 0 - 5 /hpf REGIONS Bact Occ REGIONS Mucous, Urine Present REGIONS Specimen Anatomical Collection Method Collection Time Receive d Time (Source) Location / / Volume Laterality Urine specimen 05/11/2010 10:44 0 (specimen) AM CDT 11:01 AM CDT Kiko Powell MD LAB_1 Performing Organization Address [facility] Phon e Number [address] [address] [place], [place] [phone] GLUCOSE, WHOLE BLOOD POC (05/11/2010 8:09 AM CDT) athologist Signature Glucose, Whole 111 70 - 180 REGIONS Blood mg/dl Comment: Point of Care Testing RN Notified Specimen Anatomical Collection Method Collection Time Receive d Time (Source) Location / / Volume Laterality 05/11/2010 8:09 AM 0 2:01 CDT PM CDT Maurice Baron MD LAB_1 Performing Organization Address City/[facility] Phon e Number [address] [address] [place], [place] [phone] (ABNORMAL) HEMOGRAM/PLTS/DIFF (05/11/2010 6:00 AM CDT) Analysis Performed At Patho logist Time Signature WBC 6.6 4.0 - 11.0 REGIONS k/ul RBC 3.11 (L) 4.5 - 5.9 REGIONS M/ul Hemoglobin 9.2 (L) 13.5 - REGIONS 17.5 g/dl HCT 27.1 (L) 41.0 - REGIONS 53.0 % MCV 87.1 80 - 100 REGIONS fl MCH 29.5 26 - 34 pg REGIONS MCHC 33.8 32 - 36 REGIONS g/dl RDW 15.4 (H) 11.5 - REGIONS 14.5 % Platelets 175 150 - 450 REGIONS k/ul MPV 7.7 6.5 - 10.0 REGIONS fl PMN/Band 71 43 - 72 % REGIONS Lymph 20 17 - 43 % REGIONS [place] 8 4 - 12 % REGIONS Eos 1 0 - 8 % REGIONS Baso 0 0 - 1 % REGIONS Neutrophil 4.7 1.8 - 7.7 REGIONS Absolute k/ul Lymph Absolute 1.3 1.0 - 4.8 REGIONS k/ul [place] Absolute 0.5 0.1 - 0.7 REGIONS k/ul Eos Absolute 0.1 0.0 - 0.5 REGIONS k/ul Baso Absolute 0.0 0.0 - 0.2 REGIONS k/ul Specimen Anatomical Collection Method Collection Time Receive d Time (Source) Location / / Volume Laterality 05/11/2010 6:00 AM 0 6:53 CDT AM CDT Kiko Powell MD LAB_1 Performing Organization Address [facility] Phon e Number [address] [address] [place], [place] [phone] GLUCOSE, WHOLE BLOOD POC (05/10/2010 9:32 PM CDT) P athologist Signature Glucose, Whole 129 70 - 180 REGIONS Blood mg/dl Comment: Point of Care Testing RN Notified Specimen Anatomical Collection Method Collection Time Receive d Time (Source) Location / / Volume Laterality 05/10/2010 9:32 PM 0 9:37 CDT PM CDT Maurice Baron MD LAB_1 Performing Organization Address City/[facility] Phon e Number [address] [address] [place], [place] [phone] GLUCOSE, WHOLE BLOOD POC (05/10/2010 5:16 PM CDT) P athologist Signature Glucose, Whole 118 70 - 180 REGIONS Blood mg/dl Comment: Point of Care Testing RN Notified Specimen Anatomical Collection Method Collection Time Receive d Time (Source) Location / / Volume Laterality 05/10/2010 5:16 PM 0 5:21 CDT PM CDT Maurice Baron MD LAB_1 Performing Organization Address City/[facility] Phon e Number [address] [address] [place], [place] [phone] GLUCOSE, WHOLE BLOOD POC (05/10/2010 12:10 PM CDT) athologist Signature Glucose, Whole 103 70 - 180 REGIONS Blood mg/dl Comment: Point of Care Testing RN Notified Specimen Anatomical Collection Method Collection Time Receive d Time (Source) Location / / Volume Laterality 05/10/2010 12:10 05/10/2010 PM CDT 12:24 PM CDT Maurice Baron MD LAB_1 Performing Organization Address City/[facility] Phon e Number [address] [address] [place], [place] [phone] (ABNORMAL) UA WITH MICROSCOPIC (05/10/2010 11:30 AM CDT) [facility] Careolo gist Method Time Signature Urine Color Yellow REGIONS Urine Clarity Hazy REGIONS Specific 1.013 1.005 - REGIONS [place],Ur 1.03 pH, Urine 5.5 4.5 - 8.0 REG[facility] Protein, Urine Trace (A) NEG mg/dl REGIONS Qual Glucose, Urine Negative NEG mg/dl REGIONS Qual Ketones, Urine Negative NEG mg/dl REGIONS Urobil, Urine <2.0 <2.0 REGIONS Qual mg/dl Bilirubin, Negative NEG REGIONS Urine Blood, Urine Negative NEG REGIONS Nitrite, Urine Negative NEG REGIONS Leukocyte Negative NEG REGIONS Est., Ur RBC'S 15 (H) 0 - 3 REGIONS /hpf WBC'S <1 0 - 5 REGIONS /hpf Yeast,Budding Present (A) NEG REGIONS Yeast, Hyphae Present (A) NEG REGIONS Mucous, Urine Present REGIONS Specimen Anatomical Collection Method Collection Time Receive d Time (Source) Location / / Volume Laterality 05/10/2010 11:30 05/10/2010 AM CDT 11:55 AM CDT Kiko Powell MD LAB_1 Performing Organization Address [facility] Phon e Number [address] [address] [place], [place] [phone] GLUCOSE, WHOLE BLOOD POC (05/10/2010 7:42 AM CDT) athologist Signature Glucose, Whole 107 70 - 180 REGIONS Blood mg/dl Comment: Point of Care Testing RN Notified Specimen Anatomical Collection Method Collection Time Receive d Time (Source) Location / / Volume Laterality 05/10/2010 7:42 AM 0 8:12 CDT AM CDT Maurice Baron MD LAB_1 Performing Organization Address [facility] Phon e Number [address] [address] [place], [place] [phone] (ABNORMAL) BASIC METABOLIC PANEL (05/10/2010 6:26 AM CDT) athologist Signature BUN 11 7 - 20 REGIONS mg/dl Sodium 139 135 - 145 REGIONS mmol/L Potassium 4.3 3.5 - 5.1 REGIONS mmol/L Chloride 105 98 - 107 REGIONS mmol/L CO2 31 (H) 22 - 30 REGIONS mmol/L Glucose 86 70 - 180 REGIONS mg/dl Creatinine 0.69 0.66 - REGIONS 1.25 mg/dl GFR, Estimated >60.00 >60 REGIONS ml/min/1.7 3m2 GFR, Est., If >60.00 >60 REGIONS Black ml/min/1.7 3m2 Calcium 8.4 8.4 - 10.2 REGIONS mg/dl Anion Gap 3 3 - 11 REGIONS (calc.) mmol/L Specimen Anatomical Collection Method Collection Time Receive d Time (Source) Location / / Volume Laterality 05/10/2010 6:26 AM 0 6:27 CDT AM CDT Jayna Ambriz MD LAB_1 Performing Organization Address City/[facility] Phon e Number [address] [address] [place], [place] [phone] GLUCOSE, WHOLE BLOOD POC (05/09/2010 9:36 PM CDT) athologist Signature Glucose, Whole 108 70 - 180 REGIONS Blood mg/dl Comment: Point of Care Testing RN Notified Specimen Anatomical Collection Method Collection Time Receive d Time (Source) Location / / Volume Laterality 05/09/2010 9:36 PM 0 9:39 CDT PM CDT Maurice Baron MD LAB_1 Performing Organization Address [facility] Phon e Number [address] [address] [place], [place] [phone] GLUCOSE, WHOLE BLOOD POC (05/09/2010 5:36 PM CDT) P athologist Signature Glucose, Whole 103 70 - 180 REGIONS Blood mg/dl Comment: Point of Care Testing RN Notified Specimen Anatomical Collection Method Collection Time Receive d Time (Source) Location / / Volume Laterality 05/09/2010 5:36 PM 0 9:39 CDT PM CDT Maurice Baron MD LAB_1 Performing Organization Address [facility] Phon e Number [address] [address] [place], [place] [phone] FUNGUS CULTURE,MISCELLANEOUS (05/09/2010 2:04 PM CDT) Component Value Ref Test Analysis Performed At [facility] gist Range Method Time Signature Specimen Aspirate Back REGIONS Description SUBCUTANEOUS Special Unspecified REGIONS Requests Fungus Smear No Yeast or REGIONS Fungal Elements Found Culture No Fungus REGIONS Isolated Report Status Final 06/05/2010 REGIONS Specimen Anatomical Collection Method Collection Time Receive d Time (Source) Location / / Volume Laterality 05/09/2010 2:04 PM 0 2:21 CDT PM CDT Maurice Baron MD LAB_1 Performing Organization Address [facility] Phon e Number [address] [address] [place], [place] [phone] ANAEROBIC CULTURE (05/09/2010 2:04 PM CDT) Component Value Ref Test Analysis Performed At Patholo gist Range Method Time Signature Specimen Fluid REGIONS Description SUBCUTANEOUS Back Special Unspecified REGIONS Requests Aerobic Cult [id number] REGIONS Number Culture No Anaerobes REGIONS Isolated Report Status Final 05/17/2010 REGIONS Specimen Anatomical Collection Method Collection Time Receive d Time (Source) Location / / Volume Laterality 05/09/2010 2:04 PM 0 2:21 CDT PM CDT Maurice Baron MD LAB_1 Performing Organization Address City/[facility]/ZIP Code Phon e Number [address] [address] [place], [place] [phone] AEROBIC CULTURE (05/09/2010 2:04 PM CDT) Component Value Ref Test Analysis Performed At [facility] Range Method Time Signature Specimen Fluid REGIONS Description SUBCUTANEOUS Back Special Unspecified REGIONS Requests Gram Smear Moderate PMNs REGIONS Seen Gram Smear No Organisms REGIONS Seen Gram Smear Critical value REGIONS results given to and read back by ARCHANA RN to ma at 14:58 Gram Smear on 05/09 REGIONS Culture No Growth After REGIONS 3 Days Report Status Final 05/12/2010 REGIONS Specimen Anatomical Collection Method Collection Time Receive d Time (Source) Location / / Volume Laterality 05/09/2010 2:04 PM 0 2:21 CDT PM CDT Maurice Baron MD LAB_1 Performing Organization Address [facility] Phon e Number [address] [address] [place], [place] [phone] (ABNORMAL) CSF TOTAL PROTEIN (05/09/2010 1:00 PM CDT) [facility] Method Time Signature Source Cerebrospinal REGIONS Fluid Total 247 (H) 12 - 60 REGIONS Protein, CSF mg/dl Comment: The use if this assay to monitor or diag nose patients has not been approved for this specimen type by the FDA or product engineering manager of this assay. Specimen Anatomical Collection Method Collection Time Receive d Time (Source) Location / / Volume Laterality 05/09/2010 1:00 PM 0 3:14 CDT PM CDT Maurice Baron MD LAB_1 Performing Organization Address City/[facility] Phon e Number [address] [address] [place] [phone] (ABNORMAL) CSF, GLUCOSE (05/09/2010 1:00 PM CDT) [facility] Method Time Signature Source Cerebrospinal REGIONS Fluid Glucose, CSF 34 (L) 40 - 70 REGIONS mg/dl Specimen Anatomical Collection Method Collection Time Receive d Time (Source) Location / / Volume Laterality 05/09/2010 1:00 PM 0 3:14 CDT PM CDT Maurice Baron MD LAB_1 Performing Organization Address [facility] Phon e Number [address] [address] [place], [place] [phone] (ABNORMAL) FIRST CSF CELL COUNT & DIFF (05/09/2010 1:00 PM CDT) Component Value Ref Test Analysis Performed At [facility] Range Method Time Signature Source Cerebrospinal REGIONS Fluid Description, CSF Clear REGIONS Tube # 1 REGIONS Xanthochromia Present REGIONS RBC, CSF 169 /ul REGIONS Nucleated Cells, 269 (H) 0 - 5 REGIONS CSF /ul PMN's 55 % REGIONS Lymphocytes 18 % REGIONS Monocyte/Macroph 27 % REGIONS age Specimen Anatomical Collection Method Collection Time Receive d Time (Source) Location / / Volume Laterality 05/09/2010 1:00 PM 0 3:10 CDT PM CDT Maurice Baron MD LAB_1 Performing Organization Address [facility] Phon e Number [address] [address] [place], [place] [phone] CYTOLOGY, NON-CHOKER SETTER (FLUIDS, URINE, SPUTUM) (05/09/2010 1:00 PM CDT) [facility] Method Time Signature Cytology, (NOTE) REGIONS Body Fluid Non-Land Mobile Radio Technician Cytology Report Patient Name: JIE CULLEN Taken: 05/09/2010 Received: 05/09/2010 Reported: 05/09/2010 Physician(s): MAURICE BARON ([id number]) ? Final Cytologic Diagnosis Cerebrospinal Fluid: ?Satisfactory for evaluation. ?NEGATIVE FOR MALIGNANCY ?Inflammation [facility] [place]/05/09/2010 Electronically Signed Out By ? Swati Sanchez MD ([id number]) ? Procedures/Addenda Gross Description 0.5 mls of clear, colorless fluid received. 0.5 mls processe d to make 2 Perry-stained, single cytospin slides. Specimen Anatomical Collection Method Collection Time Receive d Time (Source) Location / / Volume Laterality 05/09/2010 1:00 PM 0 3:00 CDT PM CDT Maurice Baron MD LAB_1 Performing Organization Address [facility] Code Phon e Number [address] [address] [place], [place] [phone] FUNGUS CULTURE,MISCELLANEOUS (05/09/2010 1:00 PM CDT) Component Value Ref Test Analysis Performed At Patholo gist Range Method Time Signature Specimen Cerebrospinal REGIONS Description Fluid Special Unspecified REGIONS Requests Fungus Smear Nola Ink REGIONS Preparation Negative Culture No Fungus REGIONS Isolated Report Status Final 06/05/2010 REGIONS Specimen Anatomical Collection Method Collection Time Receive d Time (Source) Location / / Volume Laterality 05/09/2010 1:00 PM 0 1:13 CDT PM CDT Maurice Baron MD LAB_1 Performing Organization Address [facility]/ZIP [facility] Phon e Number [address] [address] [place], [place] [phone] ANAEROBIC CULTURE (05/09/2010 1:00 PM CDT) Component Value Ref Test Analysis Performed At [facility] [employer] Range Method Time Signature Specimen Cerebrospinal REGIONS Description Fluid Special Unspecified REGIONS Requests Aerobic Cult [id number] REGIONS Number Culture No Anaerobes REGIONS Isolated Report Status Final 05/17/2010 REGIONS Specimen Anatomical Collection Method Collection Time Receive d Time (Source) Location / / Volume Laterality 05/09/2010 1:00 PM 0 1:13 CDT PM CDT Maurice Baron MD LAB_1 Performing Organization Address City/[facility]/ZIP [facility] Phon e Number [address] [address] [place], [place] [phone] SPINAL FLUID CULTURE & SMEAR (05/09/2010 1:00 PM CDT) Component Value Ref Test Analysis Performed At [facility] gist Range Method Time Signature Specimen Cerebrospinal REGIONS Description Fluid Special Unspecified REGIONS Requests Gram Smear No Organisms REGIONS Seen Gram Smear Results Called REGIONS to [place] in [place] 9 on speaker phone by MLM at 14:01 Culture No Growth After REGIONS 3 Days Report Status Final 05/12/2010 REGIONS Specimen Anatomical Collection Method Collection Time Receive d Time (Source) Location / / Volume Laterality 05/09/2010 1:00 PM 0 1:13 CDT PM CDT Maurice Baron MD LAB_1 Performing Organization Address City/[facility]/ZIP [facility] Phon e Number [address] [address] [place], [place] [phone] FUNGUS CULTURE,MISCELLANEOUS (05/09/2010 1:00 PM CDT) [facility] Method Time Signature Specimen Aspirate REGIONS Description Baclofen Pump (Catheter and Pump Pocket) Special Received in REGIONS Requests Anaport Vial Fungus Smear No Yeast or REGIONS Fungal Elements Found Culture No Fungus REGIONS Isolated Report Status Final REGIONS 06/05/2010 Specimen Anatomical Collection Method Collection Time Receive d Time (Source) Location / / Volume Laterality 05/09/2010 1:00 PM 0 1:05 CDT PM CDT Maurice Baron MD LAB_1 Performing Organization Address [facility]/ZIP Code Phon e Number [address] [address] [place], [place] [phone] ANAEROBIC CULTURE (05/09/2010 1:00 PM CDT) [facility] Method Time Signature Specimen Fluid REGIONS Description BACLOFEN PUMP PACKET Special Received in REGIONS Requests Anaport Vial Aerobic Cult [id number] REGIONS Number Culture No Anaerobes REGIONS Isolated Report Status Final REGIONS 05/17/2010 Specimen Anatomical Collection Method Collection Time Receive d Time (Source) Location / / Volume Laterality 05/09/2010 1:00 PM 0 1:05 CDT PM CDT Maurice Baron MD LAB_1 Performing Organization Address City/[facility]/ZIP [facility] Phon e Number [address] [address] [place], [place] [phone] AEROBIC CULTURE (05/09/2010 1:00 PM CDT) [facility] Method Time Signature Specimen Fluid REGIONS Description BACLOFEN PUMP PACKET Special Received in REGIONS Requests Anaport Vial Gram Smear No PMN'S Seen REGIONS Gram Smear No Organisms REGIONS Seen Gram Smear Results REGIONS Called to [place] in [place] 9 on speaker phone by MLM at 14:01 Culture No Growth REGIONS After 3 Days Report Status Final REGIONS 05/12/2010 Specimen Anatomical Collection Method Collection Time Receive d Time (Source) Location / / Volume Laterality 05/09/2010 1:00 PM 0 1:05 CDT PM CDT Maurice Baron MD LAB_1 Performing Organization Address [facility] Phon e Number [address] [address] [place], [place] [phone] APTT (ACTIVATED PARTIAL THROMBOPLASTIN TIME (05/09/2010 7:05 AM CDT) athologist Signature PTT 28.6 24.0 - 37.0 REGIONS sec Specimen Anatomical Collection Method Collection Time Receive d Time (Source) Location / / Volume Laterality 05/09/2010 7:05 AM 0 7:09 CDT AM CDT Maurice Baron MD LAB_1 Performing Organization Address [facility] Phon e Number [address] [address] [place], [place] [phone] ABO Rh & Antibody Screen (Type & Screen) (05/09/2010 4:00 AM CDT) [facility] gist Method Time Signature Crossmatch 05/12/2010 REGIONS Expires ABO/RH(D) A NEGATIVE REGIONS Antibody NEGATIVE REGIONS Screen Specimen Anatomical Collection Method Collection Time Receive d Time (Source) Location / / Volume Laterality 05/09/2010 4:00 AM 0 4:01 CDT AM CDT Maurice Baron MD LAB_1 Performing Organization Address [facility] Phon e Number [address] [address] [place], [place] [phone] (ABNORMAL) APTT (ACTIVATED PARTIAL THROMBOPLASTIN TIME (05/09/2010 3:59 AM CDT) P athologist Signature PTT >180.0 (HH) 24.0 - 37.0 REGIONS sec Comment: Critical value checked, given to and sam d back by Swathi GARRETT RN [id number] Specimen Anatomical Collection Method Collection Time Receive d Time (Source) Location / / Volume Laterality 05/09/2010 3:59 AM 0 4:00 CDT AM CDT Maurice Baron MD LAB_1 Performing Organization Address [facility] Phon e Number [address] [address] [place], [place] [phone] (ABNORMAL) INR/PROTIME (05/09/2010 3:59 AM CDT) P athologist Signature Protime 17.7 (H) 12.0 - 14.5 REGIONS sec INR 1.4 REGIONS Specimen Anatomical Collection Method Collection Time Receive d Time (Source) Location / / Volume Laterality 05/09/2010 3:59 AM 0 4:00 CDT AM CDT Maurice Baron MD LAB_1 Performing Organization Address [facility] Phon e Number [address] [address] [place], [place] [phone] GOLD HOLD TUBE (OR RED/RIGGS) (05/08/2010 7:00 AM CDT) [facility] gist Method Time Signature Gold Hold Held in REGIONS Tube Chemistry sample rack for 7 days Specimen Anatomical Collection Method Collection Time Receive d Time (Source) Location / / Volume Laterality 05/08/2010 7:00 AM 0 7:13 CDT AM CDT Maurice Baron MD LAB_1 Performing Organization Address [facility] Phon e Number [address] [address] [place], [place] [phone] SODIUM, URINE RANDOM (05/08/2010 7:00 AM CDT) P athologist Signature Sodium, Urine 143 mmol/L REGIONS Random Specimen Anatomical Collection Method Collection Time Receive d Time (Source) Location / / Volume Laterality Urine specimen 05/08/2010 7:00 AM 010 7:16 (specimen) CDT AM CDT Poonam Shafer MD LAB_1 Performing Organization Address [facility]/ZIP [facility] Phon e Number [address] [address] [place], [place] [phone] OSMOLALITY, URINE (05/08/2010 7:00 AM CDT) athologist Signature Osmolality, 342 REGIONS Urine Specimen Anatomical Collection Method Collection Time Receive d Time (Source) Location / / Volume Laterality Urine specimen 05/08/2010 7:00 AM 010 7:15 (specimen) CDT AM CDT Poonam Shafer MD LAB_1 Performing Organization Address [facility] Phon e Number [address] [address] [place], [place] [phone] OSMOLALITY (05/08/2010 7:00 AM CDT) athologist Signature Osmolality 293 280 - 300 REGIONS mosm/kg Specimen Anatomical Collection Method Collection Time Receive d Time (Source) Location / / Volume Laterality 05/08/2010 7:00 AM 201 0 7:11 CDT AM CDT Maurice Baron MD LAB_1 Performing Organization Address [facility] Phon e Number [address] [address] [place] [phone] (ABNORMAL) BASIC METABOLIC PANEL (05/08/2010 7:00 AM CDT) Analysis Performed At Patho logist Time Signature BUN 7 7 - 20 REGIONS mg/dl Sodium 141 135 - 145 REGIONS mmol/L Potassium 4.0 3.5 - 5.1 REGIONS mmol/L Chloride 108 (H) 98 - 107 REGIONS mmol/L CO2 31 (H) 22 - 30 REGIONS mmol/L Glucose 90 70 - 180 REGIONS mg/dl Creatinine 0.63 (L) 0.66 - REGIONS 1.25 mg/dl GFR, Estimated >60.00 >60 REGIONS ml/min/1.7 3m2 GFR, Est., If >60.00 >60 REGIONS Black ml/min/1.7 3m2 Calcium 8.2 (L) 8.4 - 10.2 REGIONS mg/dl Anion Gap 2 (L) 3 - 11 REGIONS (calc.) mmol/L Specimen Anatomical Collection Method Collection Time Receive d Time (Source) Location / / Volume Laterality 05/08/2010 7:00 AM 0 7:11 CDT AM CDT Maurice Baron MD LAB_1 Performing Organization Address [facility]/ZIP [facility] Phon e Number [address] [address] [place] [phone] (ABNORMAL) INR/PROTIME (05/08/2010 7:00 AM CDT) P athologist Signature Protime 18.2 (H) 12.0 - 14.5 REGIONS sec INR 1.5 REGIONS Specimen Anatomical Collection Method Collection Time Receive d Time (Source) Location / / Volume Laterality 05/08/2010 7:00 AM 0 7:11 CDT AM CDT Maurice Baron MD LAB_1 Performing Organization Address [facility] Phon e Number [address] [address] [place], [place] [phone] GLUCOSE, WHOLE BLOOD POC (2010 9:24 PM CDT) P athologist Signature Glucose, Whole 122 70 - 180 REGIONS Blood mg/dl Comment: Point of Care Testing RN Notified Specimen Anatomical Collection Method Collection Time Receive d Time (Source) Location / / Volume Laterality 2010 9:24 PM 0 9:27 CDT PM CDT Maurice Baron MD LAB_1 Performing Organization Address [facility] Phon e Number [address] [address] [place], [place] [phone] GLUCOSE, WHOLE BLOOD POC (2010 5:18 PM CDT) P athologist Signature Glucose, Whole 149 70 - 180 REGIONS Blood mg/dl Comment: Point of Care Testing RN Notified Specimen Anatomical Collection Method Collection Time Receive d Time (Source) Location / / Volume Laterality 2010 5:18 PM 0 5:39 CDT PM CDT Maurice Baron MD LAB_1 Performing Organization Address [facility] Phon e Number [address] [address] [place], [place] [phone] GLUCOSE, WHOLE BLOOD POC (2010 12:08 PM CDT) P athologist Signature Glucose, Whole 106 70 - 180 REGIONS Blood mg/dl Comment: Point of Care Testing RN Notified Specimen Anatomical Collection Method Collection Time Receive d Time (Source) Location / / Volume Laterality 2010 12:08 2010 PM CDT 12:15 PM CDT Maurice Baron MD LAB_1 Performing Organization Address City/[facility]/ZIP Code Phon e Number [address] [address] [place] [phone] GLUCOSE, WHOLE BLOOD POC (2010 7:27 AM CDT) P athologist Signature Glucose, Whole 107 70 - 180 REGIONS Blood mg/dl Comment: Point of Care Testing RN Notified Specimen Anatomical Collection Method Collection Time Receive d Time (Source) Location / / Volume Laterality 2010 7:27 AM 0 CDT 12:15 PM CDT Maurice Baron MD LAB_1 Performing Organization Address City/[facility] Phon e Number [address] [address] [place], [place] [phone] PHOSPHORUS (2010 6:05 AM CDT) P athologist Signature Phosphorus 3.7 2.5 - 4.5 REGIONS mg/dl Specimen Anatomical Collection Method Collection Time Receive d Time (Source) Location / / Volume Laterality 2010 6:05 AM 0 6:43 CDT AM CDT Maurice Baron MD LAB_1 Performing Organization Address City/[facility]/ZIP Code Phon e Number [address] [address] [place], [place] [phone] MAGNESIUM (2010 6:05 AM CDT) athologist Signature Magnesium 2.1 1.6 - 2.3 REGIONS mg/dl Specimen Anatomical Collection Method Collection Time Receive d Time (Source) Location / / Volume Laterality 2010 6:05 AM 0 6:43 CDT AM CDT Maurice Baron MD LAB_1 Performing Organization Address [facility]/ZIP [facility] Phon e Number [address] [address] [place] [phone] (ABNORMAL) INR/PROTIME (2010 6:05 AM CDT) athologist Signature Protime 20.2 (H) 12.0 - 14.5 REGIONS sec INR 1.7 REGIONS Specimen Anatomical Collection Method Collection Time Receive d Time (Source) Location / / Volume Laterality 2010 6:05 AM 0 6:43 CDT AM CDT Maurice Baron MD LAB_1 Performing Organization Address [facility]/ZIP [facility] Phon e Number [address] [address] [place] [phone] (ABNORMAL) HEMOGRAM/PLTS (05/06/2010 11:00 PM CDT) P athologist Signature WBC 6.3 4.0 - 11.0 REGIONS k/ul RBC 3.07 (L) 4.5 - 5.9 REGIONS M/ul Hemoglobin 9.0 (L) 13.5 - 17.5 REGIONS g/dl HCT 26.7 (L) 41.0 - 53.0 REGIONS % MCV 87.0 80 - 100 fl REGIONS MCH 29.5 26 - 34 pg REGIONS MCHC 33.9 32 - 36 REGIONS g/dl RDW 14.4 11.5 - 14.5 REGIONS % Platelets 270 150 - 450 REGIONS k/ul MPV 7.6 6.5 - 10.0 REGIONS fl Specimen Anatomical Collection Method Collection Time Receive d Time (Source) Location / / Volume Laterality 05/06/2010 11:00 05/06/2010 PM CDT 11:15 PM CDT Maurice Baron MD LAB_1 Performing Organization Address [facility] Phon e Number [address] [address] [place], [place] [phone] (ABNORMAL) BASIC METABOLIC PANEL (05/06/2010 11:00 PM CDT) athologist Signature BUN 9 7 - 20 REGIONS mg/dl Sodium 137 135 - 145 REGIONS mmol/L Potassium 3.3 (L) 3.5 - 5.1 REGIONS mmol/L Chloride 104 98 - 107 REGIONS mmol/L CO2 27 22 - 30 REGIONS mmol/L Glucose 118 70 - 180 REGIONS mg/dl Creatinine 0.70 0.66 - REGIONS 1.25 mg/dl GFR, Estimated >60.00 >60 REGIONS ml/min/1.7 3m2 GFR, Est., If >60.00 >60 REGIONS Black ml/min/1.7 3m2 Calcium 8.2 (L) 8.4 - 10.2 REGIONS mg/dl Anion Gap 6 3 - 11 REGIONS (calc.) mmol/L Specimen Anatomical Collection Method Collection Time Receive d Time (Source) Location / / Volume Laterality 05/06/2010 11:00 05/06/2010 PM CDT 11:15 PM CDT Maurice Baron MD LAB_1 Performing Organization Address [facility] Phon e Number [address] [address] [place], [place] [phone] GLUCOSE, WHOLE BLOOD POC (05/06/2010 9:06 PM CDT) athologist Signature Glucose, Whole 130 70 - 180 REGIONS Blood mg/dl Comment: Point of Care Testing RN Notified Specimen Anatomical Collection Method Collection Time Receive d Time (Source) Location / / Volume Laterality 05/06/2010 9:06 PM 0 9:10 CDT PM CDT Maurice Baron MD LAB_1 Performing Organization Address City/State/ZIP Code Phon e Number [address] [address] [place], [place] [phone] GLUCOSE, WHOLE BLOOD POC (05/06/2010 5:27 PM CDT) P athologist Signature Glucose, Whole 127 70 - 180 REGIONS Blood mg/dl Comment: Point of Care Testing RN Notified Specimen Anatomical Collection Method Collection Time Receive d Time (Source) Location / / Volume Laterality 05/06/2010 5:27 PM 0 5:29 CDT PM CDT Maurice Baron MD LAB_1 Performing Organization Address City/[facility]/ZIP Code Phon e Number [address] [address] [place] [phone] GLUCOSE, WHOLE BLOOD POC (05/06/2010 11:56 AM CDT) P athologist Signature Glucose, Whole 132 70 - 180 REGIONS Blood mg/dl Comment: Point of Care Testing RN Notified Specimen Anatomical Collection Method Collection Time Receive d Time (Source) Location / / Volume Laterality 05/06/2010 11:56 05/06/2010 AM CDT 12:24 PM CDT Maurice Baron MD LAB_1 Performing Organization Address City/[facility]/ZIP Code Phon e Number [address] [address] [place] [phone] GLUCOSE, WHOLE BLOOD POC (05/06/2010 7:30 AM CDT) P athologist Signature Glucose, Whole 108 70 - 180 REGIONS Blood mg/dl Comment: Point of Care Testing RN Notified Specimen Anatomical Collection Method Collection Time Receive d Time (Source) Location / / Volume Laterality 05/06/2010 7:30 AM 0 8:09 CDT AM CDT Maurice Baron MD LAB_1 Performing Organization Address City/State/ZIP Code Phon e Number [address] [address] [place], [place] [phone] (ABNORMAL) INR/PROTIME (05/06/2010 5:55 AM CDT) athologist Signature Protime 19.9 (H) 12.0 - 14.5 REGIONS sec INR 1.6 REGIONS Specimen Anatomical Collection Method Collection Time Receive d Time (Source) Location / / Volume Laterality 05/06/2010 5:55 AM 0 6:00 CDT AM CDT Maurice Baron MD LAB_1 Performing Organization Address City/State/ZIP [facility] Phon e Number [address] [address] [place], [place] [phone] GLUCOSE, WHOLE BLOOD POC (05/05/2010 8:53 PM CDT) athologist Signature Glucose, Whole 145 70 - 180 REGIONS Blood mg/dl Comment: Point of Care Testing RN Notified Specimen Anatomical Collection Method Collection Time Receive d Time (Source) Location / / Volume Laterality 05/05/2010 8:53 PM 0 9:00 CDT PM CDT Maurice Baron MD LAB_1 Performing Organization Address City/[facility]/ZIP Code Phon e Number [address] [address] [place], [place] [phone] GLUCOSE, WHOLE BLOOD POC (05/05/2010 5:19 PM CDT) athologist Signature Glucose, Whole 125 70 - 180 REGIONS Blood mg/dl Comment: Point of Care Testing RN Notified Specimen Anatomical Collection Method Collection Time Receive d Time (Source) Location / / Volume Laterality 05/05/2010 5:19 PM 0 5:50 CDT PM CDT Maurice Baron MD LAB_1 Performing Organization Address City/[facility]/ZIP Code Phon e Number [address] [address] [place], [place] [phone] GLUCOSE, WHOLE BLOOD POC (05/05/2010 12:10 PM CDT) athologist Signature Glucose, Whole 137 70 - 180 REGIONS Blood mg/dl Comment: Point of Care Testing RN Notified Specimen Anatomical Collection Method Collection Time Receive d Time (Source) Location / / Volume Laterality 05/05/2010 12:10 05/05/2010 PM CDT 12:22 PM CDT Maurice Baron MD LAB_1 Performing Organization Address [facility] Phon e Number [address] [address] [place], [place] [phone] GLUCOSE, WHOLE BLOOD POC (05/05/2010 7:43 AM CDT) athologist Signature Glucose, Whole 108 70 - 180 REGIONS Blood mg/dl Comment: Point of Care Testing RN Notified Specimen Anatomical Collection Method Collection Time Receive d Time (Source) Location / / Volume Laterality 05/05/2010 7:43 AM 0 8:03 CDT AM CDT Maurice Baron MD LAB_1 Performing Organization Address City/[facility] Code Phon e Number [address] [address] [place], [place] [phone] (ABNORMAL) INR/PROTIME (05/05/2010 6:15 AM CDT) athologist Signature Protime 21.4 (H) 12.0 - 14.5 REGIONS sec INR 1.8 REGIONS Specimen Anatomical Collection Method Collection Time Receive d Time (Source) Location / / Volume Laterality 05/05/2010 6:15 AM 0 6:21 CDT AM CDT Maurice Baron MD LAB_1 Performing Organization Address City/[facility] Phon e Number [address] [address] [place], [place] [phone] VANCOMYCIN LEVEL (05/05/2010 6:15 AM CDT) athologist Signature Vancomycin 17.1 mcg/ml REGIONS Comment: Trough range: 10.0-20.0 Specimen Anatomical Collection Method Collection Time Receive d Time (Source) Location / / Volume Laterality Pre-infusion 05/05/2010 6:15 AM 0 6:21 CDT AM CDT Maurice Baron MD LAB_1 Performing Organization Address City/[facility] Phon e Number [address] [address] [place], [place] [phone] (ABNORMAL) INR/PROTIME (05/04/2010 4:00 AM CDT) athologist Signature Protime 22.9 (H) 12.0 - 14.5 REGIONS sec INR 1.9 REGIONS Specimen Anatomical Collection Method Collection Time Receive d Time (Source) Location / / Volume Laterality 05/04/2010 4:00 AM 0 4:24 CDT AM CDT Maurice Baron MD LAB_1 Performing Organization Address City/[facility] Phon e Number [address] [address] [place], [place] [phone] CREATININE / GFR (05/04/2010 4:00 AM CDT) athologist Signature Creatinine 0.70 0.66 - REGIONS 1.25 mg/dl GFR, Estimated >60.00 >60 REGIONS ml/min/1.7 3m2 GFR, Est., If >60.00 >60 REGIONS Black ml/min/1.7 3m2 Specimen Anatomical Collection Method Collection Time Receive d Time (Source) Location / / Volume Laterality 05/04/2010 4:00 AM 0 4:27 CDT AM CDT Maurice Baron MD LAB_1 Performing Organization Address City/[facility] Phon e Number [address] [address] [place], [place] [phone] GLUCOSE, WHOLE BLOOD POC (05/03/2010 9:35 PM CDT) athologist Signature Glucose, Whole 111 70 - 180 REGIONS Blood mg/dl Comment: Point of Care Testing RN Notified Specimen Anatomical Collection Method Collection Time Receive d Time (Source) Location / / Volume Laterality 05/03/2010 9:35 PM 0 9:56 CDT PM CDT Maurice Baron MD LAB_1 Performing Organization Address [facility]/ZIP [facility] Phon e Number [address] [address] [place], [place] [phone] VANCOMYCIN LEVEL (05/03/2010 5:45 PM CDT) P athologist Signature Vancomycin 13.0 mcg/ml REGIONS Comment: Trough range: 10.0-20.0 Specimen Anatomical Collection Method Collection Time Receive d Time (Source) Location / / Volume Laterality Pre-infusion 05/03/2010 5:45 PM 0 5:47 CDT PM CDT Maurice Baron MD LAB_1 Performing Organization Address [facility] Phon e Number [address] [address] [place] [phone] GLUCOSE, WHOLE BLOOD POC (05/03/2010 5:21 PM CDT) athologist Signature Glucose, Whole 119 70 - 180 REGIONS Blood mg/dl Comment: Point of Care Testing RN Notified Specimen Anatomical Collection Method Collection Time Receive d Time (Source) Location / / Volume Laterality 05/03/2010 5:21 PM 0 9:56 CDT PM CDT Maurice Baron MD LAB_1 Performing Organization Address [facility] Phon e Number [address] [address] [place], [place] [phone] URINE CULTURE (05/03/2010 2:30 PM CDT) Component Value Ref Test Analysis Performed At [facility] gist Range Method Time Signature Specimen Urine REGIONS Description Cath/Bladder Special Unspecified REGIONS Requests Culture [id number] col/ml REGIONS Yeast No Further Identification Report Status Final 05/04/2010 REGIONS Specimen Anatomical Collection Method Collection Time Receive d Time (Source) Location / / Volume Laterality Urine specimen 05/03/2010 2:30 PM 010 4:00 (specimen) CDT PM CDT Zina Garcia MD LAB_1 Performing Organization Address [facility] Phon e Number [address] [address] [place] [phone] (ABNORMAL) UA WITH MICROSCOPIC (05/03/2010 2:30 PM CDT) [facility] gist Method Time Signature Urine Color Yellow REGIONS Urine Clarity Clear REGIONS Specific 1.012 1.005 - REGIONS Cornish,Ur 1.03 pH, Urine 8.0 4.5 - 8.0 REGIONS Protein, Urine Trace (A) NEG mg/dl REGIONS Qual Glucose, Urine Negative NEG mg/dl REGIONS Qual Ketones, Urine Negative NEG mg/dl REGIONS Urobil, Urine <2.0 <2.0 REGIONS Qual mg/dl Bilirubin, Negative NEG REGIONS Urine Blood, Urine Small (A) NEG REGIONS Nitrite, Urine Negative NEG REGIONS Leukocyte Negative NEG REGIONS Est., Ur RBC'S 19 (H) 0 - 3 REGIONS /hpf WBC'S 1 0 - 5 REGIONS /hpf Yeast,Budding Present (A) NEG REGIONS Epith, Occ /hpf REGIONS Squamous Trans, Epi Occ /hpf REGIONS Mucous, Urine Present REGIONS Specimen Anatomical Collection Method Collection Time Receive d Time (Source) Location / / Volume Laterality Urine specimen 05/03/2010 2:30 PM 010 3:05 (specimen) CDT PM CDT Zina Garcia MD LAB_1 Performing Organization Address [facility] Phon e Number [address] [address] [place], [place] [phone] US VENOUS DUPLEX LOWER EXTREMITY BILATERAL (05/03/2010 1:44 PM CDT) Anatomical Region Laterality Modality Vascular, Leg Ultrasound Specimen (Source) Anatomical Collection Method Collection Time Re ceived Time Location / / Volume Laterality 05/03/2010 1:44 PM CDT Narrative 05/03/2010 1:54 PM CDT ULTRASOUND VENOUS BILATERAL LOWER EXTREMITIES INDICATION: ??Known DVT. On Coumadin. TECHNIQUE: The deep venous systems bilat erally were evaluated from the levels of the common femoral veins to th e posterior tibial veins. COMPARISON: ??Bilateral lower symmetry d eep venous ultrasound 04/14/2010. FINDINGS: Nonoccluding deep venous throm bosis is again seen within the right common femoral vein and the proxim al right femoral vein. No significant change. The deep venous thro mbosis seen previously within the proximal right profunda femoris pain is no longer visualized. Nonoccluding deep venous thrombosis again appears to be present within the proximal left femoral vein. No significant change. Th e nonoccluding deep venous thrombosis within the left common femora l vein seen previously is no longer visualized. No other deep venous thromb osis appreciated. CONCLUSION: Improving bilateral deep venous thrombos is. Procedure Note Elizabeth Joseph S - 05/03/2010 ULTRASOUND VENOUS BILATERAL LOWER EXTREM ITIES INDICATION: Known DVT. On Coumadin. TECHNIQUE: The deep venous systems bilat erally were evaluated from the levels of the common femoral veins to th e posterior tibial veins. COMPARISON: Bilateral lower symmetry stephane p venous ultrasound 04/14/2010. FINDINGS: Nonoccluding deep venous throm bosis is again seen within the right common femoral vein and the proxim al right femoral vein. No significant change. The deep venous thro mbosis seen previously within the proximal right profunda femoris pain is no longer visualized. Nonoccluding deep venous thrombosis again appears to be present within the proximal left femoral vein. No significant change. Th e nonoccluding deep venous thrombosis within the left common femora l vein seen previously is no longer visualized. No other deep venous thromb osis appreciated. CONCLUSION: Improving bilateral deep venous thrombos is. Lucy SAMSON US (ABNORMAL) INR/PROTIME (05/03/2010 8:30 AM CDT) athologist Signature Protime 25.7 (H) 12.0 - 14.5 REGIONS sec INR 2.2 REGIONS Specimen Anatomical Collection Method Collection Time Receive d Time (Source) Location / / Volume Laterality 05/03/2010 8:30 AM 0 9:58 CDT AM CDT Maurice Baron MD LAB_1 Performing Organization Address City/State/ZIP Code Phon e Number [address] [address] [place], [place] [phone] VANCOMYCIN LEVEL (05/01/2010 7:40 PM CDT) P athologist Signature Vancomycin 11.1 mcg/ml REGIONS Comment: Trough range: 10.0-20.0 Specimen Anatomical Collection Method Collection Time Receive d Time (Source) Location / / Volume Laterality Pre-infusion 05/01/2010 7:40 PM 0 7:47 CDT PM CDT Trevin Salgado MD LAB_1 Performing Organization Address City/State/ZIP Code Phon e Number [address] [address] [place], [place] [phone] US FNA SUPERFICIAL (05/01/2010 2:50 PM CDT) Anatomical Region Laterality Modality Abdomen, Ankle, Arm, Breast, Chest, C-Spine, Elbow, Foot, Ultrasound Forearm, Hand, Head, Hip, Knee, Leg, Lower Extremity, L-Spin e, Lung, Neck, Other, Pelvis, Shoulder, Skeletal, Spine, Testes , Thigh, T-Spine, Upper Extremity, Vascular, Wrist Specimen (Source) Anatomical Collection Method Collection Time Re ceived Time Location / / Volume Laterality 05/01/2010 2:50 PM CDT Narrative 05/01/2010 3:27 PM CDT ULTRASOUND GUIDED THORACIC PARASPINAL FLUID COLLECTION ASPIRATION 05/01/2010: INDICATION: Postop swelling. Seroma. Abs cess? Infection? TECHNIQUE: After discussion of procedure and risks, an informed consent was obtained. Sterile skin prep and drape. 5 ml 1% buffered Lidocaine as local anesthetic. Using real-time ultrasound guidance, a 19-gauge Integrated Materialse[employer] needle was advanced into the paraspinal complex fluid collection measuring 14.4 x 4.2 x 10.6 cm. Approximately 100 ml sero us fluid was removed and sample submitted for lab analysis. Needle remov ed and bandage applied. Post aspiration images demonstrate trace amou nt of residual fluid. Patient tolerated procedure well and was dismiss ed from ultrasound suite in stable condition without any apparent immediate complications. RADIOLOGIC FINDINGS: Thoracic paraspinal fluid collection. Needle within the fluid. Tiny amount of residual fluid post aspiration. CONCLUSION: 1. Successful uncomplicated thoracic par aspinal postop fluid collection aspiration. 2. Ultrasound guidance utilized for need le placement and aspiration. 3. Sample submitted for lab analysis. Mi nor residual fluid post aspiration. Procedure Note Birgit Melton T - 05/02/2010Formatting of t his note might be different from the original. ULTRASOUND GUIDED THORACIC PARASPINAL FL UID COLLECTION ASPIRATION 05/01/2010: INDICATION: Postop swelling. Seroma. Abs cess? Infection? TECHNIQUE: After discussion of procedure and risks, an informed consent was obtained. Sterile skin prep and drape. 5 ml 1% buffered Lidocaine as local anesthetic. Using real-time ultrasound guidance, a 19-gauge Integrated Materialseh needle was advanced into the paraspinal complex fluid collection measuring 14.4 x 4.2 x 10.6 cm. Approximately 100 ml sero us fluid was removed and sample submitted for lab analysis. Needle remov ed and bandage applied. Post aspiration images demonstrate trace amou nt of residual fluid. Patient tolerated procedure well and was dismiss ed from ultrasound suite in stable condition without any apparent immediate complications. RADIOLOGIC FINDINGS: Thoracic paraspinal fluid collection. Needle within the fluid. Tiny amount of residual fluid post aspiration. CONCLUSION: 1. Successful uncomplicated thoracic par aspinal postop fluid collection aspiration. 2. Ultrasound guidance utilized for need le placement and aspiration. 3. Sample submitted for lab analysis. Mi nor residual fluid post aspiration. Maurice Baron MD RAD US AEROBIC CULTURE (05/01/2010 2:35 PM CDT) Component Value Ref Test Analysis Performed At Patholo gist Range Method Time Signature Specimen Drainage Seroma REGIONS Description Back SUPERFICIAL Special Received in REGIONS Requests Anaport Vial Gram Smear Many PMNs Seen REGIONS Gram Smear No Organisms Seen REGIONS Culture Rare REGIONS Staphylococcus species, Coagulase Negative Report Status Final 05/05/2010 REGIONS Specimen (Source) Anatomical Collection Method Collection Time Re ceived Time Location / / Volume Laterality Specimen 05/01/2010 2:35 05/01/2010 3 :43 collection by PM CDT PM CDT drainage (procedure) (Other (specify)) Organism Antibiotic Method Susceptibility Rare staphylococcus species, Ampicillin/Sulbactam Resistant coagulase negative (rh marip[place] ) Rare staphylococcus species, Clindamycin <=0 .25: Sensitive coagulase negative (rh [place] ) Rare staphylococcus species, Clindamycin Yaz ceptible: Sensitive coagulase negative (rh [place] ) Rare staphylococcus species, Erythromycin <=0 .25: Sensitive coagulase negative (rh [place] ) Rare staphylococcus species, Erythromycin Yaz ceptible: Sensitive coagulase negative (rh [place] ) Rare staphylococcus species, Erythromycin Yaz ceptible implies coagulase negative (rh [place] ) yaz ceptibility to Azithromycin, Cl arithromycin and: Sensitive Rare staphylococcus species, Erythromycin Dir ithromycin: Sensitive coagulase negative (rh [place] ) Rare staphylococcus species, Levofloxacin 4: Intermediate coagulase negative (rh [place] ) Rare staphylococcus species, Levofloxacin Int ermediate coagulase negative (rh [place] ) Rare staphylococcus species, Linezolid 1: Sensitive coagulase negative (rh [place] ) Rare staphylococcus species, Linezolid Yaz ceptible: Sensitive coagulase negative (rh [place] ) Rare staphylococcus species, Nitrofurantoin <=1 6: Sensitive coagulase negative (rh [place] ) Rare staphylococcus species, Nitrofurantoin Yaz ceptible: Sensitive coagulase negative (rh [place] ) Rare staphylococcus species, Nitrofurantoin Parker ited to use in treating coagulase negative (rh mariposa ) uri nary tract infection: Sensitive Rare staphylococcus species, Oxacillin >=4 : Resistant coagulase negative (rh [place] ) Rare staphylococcus species, Oxacillin Res istant coagulase negative (rh [place] ) Rare staphylococcus species, Oxacillin Pre dicts activity of coagulase negative (rh [place]osa ) Rocio xacillin,Dicloxacillin,ce phalosporins,: R esistant Rare staphylococcus species, Oxacillin bet a-lactam inhibitor coagulase negative (rh [place] ) com binations and Imipenem: Resistant Rare staphylococcus species, Penicillin >=0 .5: Resistant coagulase negative (rh [place] ) Rare staphylococcus species, Penicillin Res istant coagulase negative (rh [place] ) Rare staphylococcus species, Tetracycline <=1 : Sensitive coagulase negative (rh [place] ) Rare staphylococcus species, Tetracycline Yaz ceptible: Sensitive coagulase negative (rh [place] ) Rare staphylococcus species, Tetracycline Yaz ceptible implies coagulase negative (rh [place] ) yaz ceptibility to Doxycycline and Minocycline: Sensitive Rare staphylococcus species, Vancomycin 1: Sensitive coagulase negative (rh [place] ) Rare staphylococcus species, Vancomycin Yaz ceptible: Sensitive coagulase negative (rh [place]iposa ) Birgit ASKEW LAB_1 Performing Organization Address City/State/ZIP Code Phon e Number [address] [address] [place], [place] [phone] ANAEROBIC CULTURE (05/01/2010 2:35 PM CDT) [facility] Method Time Signature Specimen Drainage REGIONS Description SUPERFICIAL BACK SEROMA Special Received in REGIONS Requests Anaport Vial Aerobic Cult [id number] REGIONS Number Culture No Anaerobes REGIONS Isolated Report Status Final REGIONS 05/08/2010 Specimen Anatomical Collection Method Collection Time Receive d Time (Source) Location / / Volume Laterality 05/01/2010 2:35 PM 0 3:43 CDT PM CDT Birgit ASKEW LAB_1 Performing Organization Address City/State/ZIP Code Phon e Number [address] [address] [place], [place] [phone] XR PORTABLE CHEST 1 VIEW to verify catheter tip location JORGE LUIS (05/01/2010 1:25 PM CDT) Anatomical Region Laterality Modality Chest, Lung Computed Radiography Specimen (Source) Anatomical Collection Method Collection Time Re ceived Time Location / / Volume Laterality 05/01/2010 1:25 PM CDT Narrative 05/01/2010 1:34 PM CDT XR PORT CHEST 1 VW May 01, 2010 01:25:00 PM INDICATION: PICC placement COMPARISON: 04/13/2010 FINDINGS: The right internal jugular cat heter has been removed. A right PICC line projects with tip over the the proximal right atrium. Increasing left basilar atelectasis. Heart size is normal. No pleural effusions. Procedure Note Barb Shelley H - 05/01/2010 XR PORT CHEST 1 VW May 01, 2010 01:25:00 PM INDICATION: PICC placement COMPARISON: 04/13/2010 FINDINGS: The right internal jugular cat heter has been removed. A right PICC line projects with tip over the the proximal right atrium. Increasing left basilar atelectasis. Heart size is normal. No pleural effusions. Maurice Baron MD RAD PORTABLE (ABNORMAL) HEMOGRAM/PLTS (05/01/2010 6:15 AM CDT) P athologist Signature WBC 6.8 4.0 - 11.0 REGIONS k/ul RBC 2.89 (L) 4.5 - 5.9 REGIONS M/ul Hemoglobin 8.6 (L) 13.5 - 17.5 REGIONS g/dl HCT 25.6 (L) 41.0 - 53.0 REGIONS % MCV 88.7 80 - 100 fl REGIONS MCH 29.9 26 - 34 pg REGIONS MCHC 33.7 32 - 36 REGIONS g/dl RDW 15.1 (H) 11.5 - 14.5 REGIONS % Platelets 265 150 - 450 REGIONS k/ul MPV 8.1 6.5 - 10.0 REGIONS fl Specimen Anatomical Collection Method Collection Time Receive d Time (Source) Location / / Volume Laterality 05/01/2010 6:15 AM 0 6:19 CDT AM CDT Yomi Miller MD LAB_1 Performing Organization Address [facility]/ZIP [facility] Phon e Number [address] [address] [place], [place] [phone] (ABNORMAL) INR/PROTIME (05/01/2010 6:15 AM CDT) P athologist Signature Protime 28.5 (H) 12.0 - 14.5 REGIONS sec INR 2.5 REGIONS Specimen Anatomical Collection Method Collection Time Receive d Time (Source) Location / / Volume Laterality 05/01/2010 6:15 AM 0 6:19 CDT AM CDT Yomi Miller MD LAB_1 Performing Organization Address [facility] Phon e Number [address] [address] [place], [place] [phone] FL LUMBAR PUNCTURE (FOR CSF) (04/30/2010 11:34 AM CDT) Anatomical Region Laterality Modality Spine, L-Spine Radio Fluoroscopy Specimen (Source) Anatomical Collection Method Collection Time Re ceived Time Location / / Volume Laterality 04/30/2010 11:34 AM CDT Narrative 04/30/2010 11:47 AM CDT FL LUMBAR PUNCTURE (FOR CSF)Apr 30, 2010 11:34:00 AM INDICATION: Neck pain. COMPARISON: None. FINDINGS: Informed consent was obtained from the patient. The risks of proceeding with the patient on Coumadin were explained and the patient agreed to the procedure. The skin was pr epped and draped. Following infiltration of the skin with buffered X ylocaine, a 20-gauge needle was placed into the subarachnoid space over the L3 vertebral body. ??12 cc of cloudy yellow cerebrospinal fluid were r emoved without difficulty. No complications. 36 seconds fluoro time. IMPRESSION: Successful lumbar puncture. Procedure Note Nabil Justin - 04/30/2010Formattin g of this note might be different from the original. FL LUMBAR PUNCTURE (FOR CSF)Apr 30, 2010 11:34:00 AM INDICATION: Neck pain. COMPARISON: None. FINDINGS: Informed consent was obtained from the patient. The risks of proceeding with the patient on Coumadin were explained and the patient agreed to the procedure. The skin was pr epped and draped. Following infiltration of the skin with buffered X ylocaine, a 20-gauge needle was placed into the subarachnoid space over the L3 vertebral body. 12 cc of cloudy yellow cerebrospinal fluid were r emoved without difficulty. No complications. 36 seconds fluoro time. IMPRESSION: Successful lumbar puncture. Yomi Miller MD [facility] ANAEROBIC CULTURE (04/30/2010 11:00 AM CDT) Component Value Ref Test Analysis Performed At [facility] Gen110 Range Method Time Signature Specimen Cerebrospinal REGIONS Description Fluid Special Unspecified REGIONS Requests Aerobic Cult [id number] REGIONS Number Culture No Anaerobes REGIONS Isolated Report Status Final 05/08/2010 REGIONS Specimen Anatomical Collection Method Collection Time Receive d Time (Source) Location / / Volume Laterality 04/30/2010 11:00 04/30/2010 AM CDT 12:15 PM CDT Yomi Miller MD LAB_1 Performing Organization Address [facility] Phon e Number [address] [address] [place], [place] [phone] (ABNORMAL) FIRST CSF CELL COUNT & DIFF (04/30/2010 11:00 AM CDT) [facility] Gen110 Method Time Signature Source OTHER REGIONS (SPECIFY) Description, CSF Hazy REGIONS Tube # 4 REGIONS Xanthochromia Present REGIONS RBC, CSF 626 /ul REGIONS Nucleated Cells, 3135 (H) 0 - 5 /ul REGIONS CSF PMN's 74 % REGIONS Lymphocytes 9 % REGIONS Monocyte/Macropha 17 % REGIONS ge Specimen Anatomical Collection Method Collection Time Receive d Time (Source) Location / / Volume Laterality Other (specify) 04/30/2010 11:00 04/30/20 10 AM CDT 11:57 AM CDT Zelalem Dick MD LAB_1 Performing Organization Address City/[facility]/ZIP Code Phon e Number [address] [address] [place], [place] [phone] (ABNORMAL) SPINAL FLUID CULTURE & SMEAR (04/30/2010 11:00 AM CDT) Component Value Ref Test Analysis Performed At [facility] Range Method Time Signature Specimen Cerebrospinal REGIONS Description Fluid Special Unspecified REGIONS Requests Gram Smear No Organisms Seen REGIONS Culture Rare REGIONS Staphylococcus species, Coagulase Negative Culture This is considered a significant result. Clinical correlat ion is REGIONS indicated. (A) Report Status Final 05/04/2010 REGIONS Specimen Anatomical Collection Method Collection Time Receive d Time (Source) Location / / Volume Laterality 04/30/2010 11:00 04/30/2010 AM CDT 12:12 PM CDT Organism Antibiotic Method Susceptibility Rare staphylococcus species, Ampicillin/Sulbactam Resistant coagulase negative (rh [place] ) Rare staphylococcus species, Gentamicin <=0 .5: Sensitive coagulase negative (rh [place] ) Rare staphylococcus species, Gentamicin Yaz ceptible: Sensitive coagulase negative (rh [place] ) Rare staphylococcus species, Linezolid 1: Sensitive coagulase negative (rh [place] ) Rare staphylococcus species, Linezolid Yaz ceptible: Sensitive coagulase negative (rh [place] ) Rare staphylococcus species, Nitrofurantoin <=1 6: Sensitive coagulase negative (rh [place] ) Rare staphylococcus species, Nitrofurantoin Yaz ceptible: Sensitive coagulase negative (rh [place] ) Rare staphylococcus species, Nitrofurantoin Parker ited to use in treating coagulase negative (rh [place]ip[place] ) uri nary tract infection: Sensitive Rare staphylococcus species, Oxacillin >=4 : Resistant coagulase negative (rh [place] ) Rare staphylococcus species, Oxacillin Res istant coagulase negative (rh [place] ) Rare staphylococcus species, Oxacillin Pre dicts activity of coagulase negative (rh [place] ) Rocio xacillin,Dicloxacillin,ce phalosporins,: R esistant Rare staphylococcus species, Oxacillin bet a-lactam inhibitor coagulase negative (rh [place] ) com binations and Imipenem: Resistant Rare staphylococcus species, Penicillin >=0 .5: Resistant coagulase negative (rh [place] ) Rare staphylococcus species, Penicillin Res istant coagulase negative (rh [place] ) Rare staphylococcus species, Rifampin <=0 .5: Sensitive coagulase negative (rh [place] ) Rare staphylococcus species, Rifampin Yaz ceptible: Sensitive coagulase negative (rh [place] ) Rare staphylococcus species, Vancomycin 1: Sensitive coagulase negative (rh [place] ) Rare staphylococcus species, Vancomycin Yaz ceptible: Sensitive coagulase negative (rh mariposa ) Zelalem Dick MD LAB_1 Performing Organization Address [facility] Phon e Number [address] [address] [place], [place] [phone] (ABNORMAL) CSF TOTAL PROTEIN (04/30/2010 11:00 AM CDT) [facility] Method Time Signature Source Cerebrospinal REGIONS Fluid Total 804 (H) 12 - 60 REGIONS Protein, CSF mg/dl Comment: The use if this assay to monitor or diag nose patients has not been approved for this specimen type by the FDA or product engineering manager of this assay. Specimen (Source) Anatomical Collection Method Collection Time Re ceived Time Location / / Volume Laterality Cerebrospinal fluid 04/30/2010 11:00 04/12 sample (specimen) AM CDT 11:57 AM C DT Zelalem Dick MD LAB_1 Performing Organization Address [facility] Phon e Number [address] [address] [place], [place] [phone] (ABNORMAL) CSF, GLUCOSE (04/30/2010 11:00 AM CDT) [facility] Method Time Signature Source Cerebrospinal REGIONS Fluid Glucose, CSF 32 (L) 40 - 70 REGIONS mg/dl Specimen (Source) Anatomical Collection Method Collection Time Re ceived Time Location / / Volume Laterality Cerebrospinal fluid 04/30/2010 11:00 04/12 sample (specimen) AM CDT 11:57 AM C DT Zelalem Dick MD LAB_1 Performing Organization Address [facility] Phon e Number [address] [address] [place], [place] [phone] Phosphorus (04/30/2010 6:19 AM CDT) athologist Signature Phosphorus 3.6 2.5 - 4.5 REGIONS mg/dl Specimen Anatomical Collection Method Collection Time Receive d Time (Source) Location / / Volume Laterality 04/30/2010 6:19 AM 0 6:25 CDT AM CDT Yomi Miller MD LAB_1 Performing Organization Address [facility] Phon e Number [address] [address] [place], [place] [phone] Magnesium (04/30/2010 6:19 AM CDT) athologist Signature Magnesium 1.9 1.6 - 2.3 REGIONS mg/dl Specimen Anatomical Collection Method Collection Time Receive d Time (Source) Location / / Volume Laterality 04/30/2010 6:19 AM 0 6:25 CDT AM CDT Yomi Miller MD LAB_1 Performing Organization Address [facility] Phon e Number [address] [address] [place], [place] [phone] (ABNORMAL) Basic Metabolic Panel (K, Na, CO2, Cl, Gluc, BUN, Creat, Ca) (Chem 8) (04/30/2010 6:19 AMCDT) athologist Signature BUN 10 7 - 20 REGIONS mg/dl Sodium 135 135 - 145 REGIONS mmol/L Potassium 4.3 3.5 - 5.1 REGIONS mmol/L Chloride 100 98 - 107 REGIONS mmol/L CO2 28 22 - 30 REGIONS mmol/L Glucose 115 70 - 180 REGIONS mg/dl Creatinine 0.71 0.66 - REGIONS 1.25 mg/dl GFR, Estimated >60.00 >60 REGIONS ml/min/1.7 3m2 GFR, Est., If >60.00 >60 REGIONS Black ml/min/1.7 3m2 Calcium 7.9 (L) 8.4 - 10.2 REGIONS mg/dl Anion Gap 7 3 - 11 REGIONS (calc.) mmol/L Specimen Anatomical Collection Method Collection Time Receive d Time (Source) Location / / Volume Laterality 04/30/2010 6:19 AM 0 6:25 CDT AM CDT Yomi Miller MD LAB_1 Performing Organization Address [facility] Phon e Number [address] [address] [place], [place] [phone] (ABNORMAL) CBC, Platelets with Differential (04/30/2010 6:19 AM CDT) Analysis Performed At [facility] logist Time Signature WBC 8.9 4.0 - 11.0 REGIONS k/ul RBC 3.20 (L) 4.5 - 5.9 REGIONS M/ul Hemoglobin 9.7 (L) 13.5 - REGIONS 17.5 g/dl HCT 27.9 (L) 41.0 - REGIONS 53.0 % MCV 87.2 80 - 100 REGIONS fl MCH 30.1 26 - 34 pg REGIONS MCHC 34.6 32 - 36 REGIONS g/dl RDW 14.3 11.5 - REGIONS 14.5 % Platelets 295 150 - 450 REGIONS k/ul MPV 7.1 6.5 - 10.0 REGIONS fl PMN/Band 80 (H) 43 - 72 % REGIONS Lymph 13 (L) 17 - 43 % REGIONS [place] 7 4 - 12 % REGIONS Eos 0 0 - 8 % REGIONS Baso 0 0 - 1 % REGIONS Neutrophil 7.1 1.8 - 7.7 REGIONS Absolute k/ul Lymph Absolute 1.1 1.0 - 4.8 REGIONS k/ul [place] Absolute 0.6 0.1 - 0.7 REGIONS k/ul Eos Absolute 0.0 0.0 - 0.5 REGIONS k/ul Baso Absolute 0.0 0.0 - 0.2 REGIONS k/ul Specimen Anatomical Collection Method Collection Time Receive d Time (Source) Location / / Volume Laterality 04/30/2010 6:19 AM 0 6:25 CDT AM CDT Yomi Miller MD LAB_1 Performing Organization Address City/State/ZIP Code Phon e Number [address] [address] [place], [place] [phone] MRSA ADMIT SCREEN (04/30/2010 1:45 AM CDT) Component Value Ref Test Analysis Performed At [facility] gist Range Method Time Signature Specimen Nose Swab REGIONS Description Special Unspecified REGIONS Requests PCR No MRSA DNA REGIONS Detected Culture No Methicillin REGIONS Resistant Staphylococcus aureus Report Status Final 04/30/2010 REGIONS Specimen Anatomical Collection Method Collection Time Receive d Time (Source) Location / / Volume Laterality Nasal swab taken 04/30/2010 1:45 AM 04/30 2:34 (situation) CDT AM CDT Trevin Salgado MD LAB_1 Performing Organization Address City/State/ZIP Code Phon e Number [address] [address] [place], [place] [phone] XR ABDOMEN AP/OBLIQUES/LATERAL (04/30/2010 12:24 AM CDT) Anatomical Region Laterality Modality Abdomen Computed Radiography Specimen (Source) Anatomical Collection Method Collection Time Re ceived Time Location / / Volume Laterality 04/30/2010 12:24 AM CDT Narrative 04/30/2010 12:33 AM CDT ABDOMEN AP/OBLIQUE/LATERAL, 7 VIEWS. Apr 30, 2010 12:24:00 AM INDICATION: Patient with intrathecal jessy lofen pump in right lower quadrant, history of it flipping, please take AP to the pump and lateral to the pump, evaluate for orientation of the ba clofen pump. COMPARISON: Decubitus views of the abdom en from 04/19/2010. FINDINGS: Baclofen pump projecting over the right lower quadrant appears similar in orientation to the prior exam ination allowing for difference in positioning. A thin catheter or lead ext ends to the intrathecal space with the tip in the upper thoracic region. IV C filter in place. Nonobstructive bowel gas pattern. Procedure Note Donnie Mondragon - 04/30/2010Formatting o f this note might be different from the original. ABDOMEN AP/OBLIQUE/LATERAL, 7 VIEWS. Apr 30, 2010 12:24:00 AM INDICATION: Patient with intrathecal jessy lofen pump in right lower quadrant, history of it flipping, please take AP to the pump and lateral to the pump, evaluate for orientation of the ba clofen pump. COMPARISON: Decubitus views of the abdom en from 04/19/2010. FINDINGS: Baclofen pump projecting over the right lower quadrant appears similar in orientation to the prior exam ination allowing for difference in positioning. A thin catheter or lead ext ends to the intrathecal space with the tip in the upper thoracic region. IV C filter in place. Nonobstructive bowel gas pattern. Cristine Henson MD RAD GD EKG IP (04/30/2010 12:00 AM CDT) Specimen (Source) Anatomical Location Collection Method / Collectio n Time Received Time / Laterality Volume 04/30/2010 Narrative This result has an attachment that is no t available. Transcriptions REGIONS, PROVIDER - 04/30/2010 12:00 AM CDT REGIONS, PROVIDER - 05/09/2010 12:00 AM CDT Provider Regions EKG MR THORACIC SPINE WITH/WITHOUT CONTRAST (tell safe deposit clerk and call Radiologist) (04/29/2010 8:10 PM CDT) Anatomical Region Laterality Modality Spine, T-Spine, L-Spine, C-Spine, Skeletal Magnetic Resonance Specimen (Source) Anatomical Collection Method Collection Time Re ceived Time Location / / Volume Laterality 04/29/2010 8:10 PM CDT Narrative 04/29/2010 8:30 PM CDT [facility] THORACIC SPINE MRI ? 04/29/2010 INDICATION: Neck pain and headaches. 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 20 mL of Magnevist. COMPARISON: 04/12/2010 FINDINGS: There is a large 4 x 11 x 16 cm (AP, TR, SI) fluid collection within the posterior paraspinal soft tissues in the upper back which has developed since the exam of 04/12/2010 There is some mild enhancement along the margins of the fluid collection. The fluid paulina ection extends to the posterior margin of the thecal sac in the region o f the previous thoracic laminaplasties. The appearance would be most consistent with a large pseudomeningocele. The fluid collection results in some very mild mass effect on the thecal sac without signifi cant compression or displacement of the thoracic cord. No evidence of intra spinal extension of the abnormal fluid collection. Signal changes within the upper thoracic cord consistent with previous tumor resection. Post radi ation changes within the marrow of the lower cervical and upper thoracic ve rtebra. CONCLUSION: 1. Large mildly enhancing fluid collecti on which measures 4 x 11 x 16 cm in the posterior soft tissues of the upper back which has appearance consistent with a pseudomeningocele. 2. The fluid collection extends to the p osterior margin of the thecal sac in the region of the upper thoracic lami naplasties. 3. No evidence of a epidural hematoma or abscess. 4. Postoperative changes within the uppe r thoracic cord. Procedure Note Julien Anna - 04/29/2010 [facility] THORACIC SPINE MRI 04/29/2010 INDICATION: Neck pain and headaches. 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 20 mL of Magnevist. COMPARISON: 04/12/2010 FINDINGS: There is a large 4 x 11 x 16 cm (AP, TR, SI) fluid collection within the posterior paraspinal soft tissues in the upper back which has developed since the exam of 04/12/2010 There is some mild enhancement along the margins of the fluid collection. The fluid paulina ection extends to the posterior margin of the thecal sac in the region o f the previous thoracic laminaplasties. The appearance would be most consistent with a large pseudomeningocele. The fluid collection results in some very mild mass effect on the thecal sac without signifi cant compression or displacement of the thoracic cord. No evidence of intra spinal extension of the abnormal fluid collection. Signal changes within the upper thoracic cord consistent with previous tumor resection. Post radi ation changes within the marrow of the lower cervical and upper thoracic ve rtebra. CONCLUSION: 1. Large mildly enhancing fluid collecti on which measures 4 x 11 x 16 cm in the posterior soft tissues of the upper back which has appearance consistent with a pseudomeningocele. 2. The fluid collection extends to the p osterior margin of the thecal sac in the region of the upper thoracic lami naplasties. 3. No evidence of a epidural hematoma or abscess. 4. Postoperative changes within the uppe r thoracic cord. Zelalem Dick MD RAD MRI GOLD HOLD TUBE (OR RED/RIGGS) (04/29/2010 5:11 PM CDT) [facility] gist Method Time Signature Gold Hold Held in [facility] Tube Chemistry sample rack for 7 days Specimen Anatomical Collection Method Collection Time Receive d Time (Source) Location / / Volume Laterality 04/29/2010 5:11 PM 0 5:23 CDT PM CDT Julian Fragoso MD LAB_1 Performing Organization Address City/State/ZIP Code Phon e Number [address] [address] [place], [place] [phone] COAG HOLD (BLUE TUBE) (04/29/2010 5:11 PM CDT) athologist Signature Coag Hold Held in [facility] Coag Rack for 8 hours Specimen Anatomical Collection Method Collection Time Receive d Time (Source) Location / / Volume Laterality 04/29/2010 5:11 PM 0 5:23 CDT PM CDT Julian Fragoso MD LAB_1 Performing Organization Address [facility]/ZIP [facility] Phon e Number [address] [address] [place], [place] [phone] BB HOLD TUBE ([facility] ONLY) (04/29/2010 5:11 PM CDT) [facility] gist Method Time Signature BB Hold Tube Blood Bank [facility] save tube expires in 3 days Specimen Anatomical Collection Method Collection Time Receive d Time (Source) Location / / Volume Laterality 04/29/2010 5:11 PM 0 5:23 CDT PM CDT Julian Fragoso MD LAB_1 Performing Organization Address City/[facility] Phon e Number [address] [address] [place], [place] [phone] BLOOD CULTURE SITE 1 (04/29/2010 5:11 PM CDT) [facility] gist Method Time Signature Specimen Blood [facility] Description PERIPHERAL IV LINE Special Unspecified [facility] Requests Culture No Growth After [facility] 6 Days Report Status Final [facility] 05/05/2010 Specimen Anatomical Collection Method Collection Time Receive d Time (Source) Location / / Volume Laterality Blood specimen 04/29/2010 5:11 PM 010 7:53 (specimen) CDT PM CDT (Peripheral IV Line) Zelalem iDck MD LAB_1 Performing Organization Address City/[facility]/ZIP [facility] Phon e Number [address] [address] [place], [place] [phone] (ABNORMAL) Basic Metabolic Panel (04/29/2010 5:11 PM CDT) athologist Signature BUN 10 7 - 20 [facility] mg/dl Sodium 134 (L) 135 - 145 [facility] mmol/L Potassium 4.6 3.5 - 5.1 [facility] mmol/L Chloride 97 (L) 98 - 107 [facility] mmol/L CO2 29 22 - 30 [facility] mmol/L Glucose 109 70 - 180 [facility] mg/dl Creatinine 0.86 0.66 - [facility] 1.25 mg/dl GFR, Estimated >60.00 >60 [facility] ml/min/1.7 3m2 GFR, Est., If >60.00 >60 [facility] Black ml/min/1.7 3m2 Calcium 8.6 8.4 - 10.2 [facility] mg/dl Anion Gap 8 3 - 11 [facility] (calc.) mmol/L Specimen Anatomical Collection Method Collection Time Receive d Time (Source) Location / / Volume Laterality 04/29/2010 5:11 PM 0 5:23 CDT PM CDT Zelalem Dick MD LAB_1 Performing Organization Address [facility] Phon e Number [address] [address] [place], [place] [phone] (ABNORMAL) HEMOGRAM/PLTS (04/29/2010 5:11 PM CDT) P athologist Signature WBC 11.3 (H) 4.0 - 11.0 [facility] k/ul RBC 3.50 (L) 4.5 - 5.9 [facility] M/ul Hemoglobin 10.4 (L) 13.5 - 17.5 [facility] g/dl HCT 31.5 (L) 41.0 - 53.0 [facility] % MCV 89.8 80 - 100 fl [facility] MCH 29.7 26 - 34 pg [facility] MCHC 33.1 32 - 36 [facility] g/dl RDW 15.2 (H) 11.5 - 14.5 [facility] % Platelets 307 150 - 450 [facility] k/ul MPV 8.2 6.5 - 10.0 [facility] fl Specimen Anatomical Collection Method Collection Time Receive d Time (Source) Location / / Volume Laterality 04/29/2010 5:11 PM 0 5:23 CDT PM CDT Zelalem Dick MD LAB_1 Performing Organization Address [facility] Phon e Number [address] [address] [place], [place] [phone] documented in this encounter Visit Diagnoses Diagnosis Pseudomeningocele - Primary Disorders of meninges, not elsewhere cla ssified Headache(784.0) Headache Fever Fever, unspecified Muscle spasticity Spasm of muscle Meningitis Meningitis, unspecified 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, unspecified site Other symptoms referable to back CAREPLAN: BACLOFEN Neurogenic bowel DVT (deep venous thrombosis) ([facility]) Acute venous embolism and thrombosis of unspecified deep vessels of lower extremity Neurogenic bladder Neurogenic bladder, NOS Polyuria Hypotension Hypotension, unspecified Probable Bacterial Meningitis Meningitis due to unspecified bacterium HTN (hypertension) ([facility]) Unspecified essential hypertension Initial Assessments - Mary Ann Dubose - 05/11/2010 4:05 PM CDT [facility] Physical Therapy Evaluation Patient Seen: bedside Diagnosis: Encounter Diagnoses Code Name Primary? 322.9P Meningitis Yes ??? 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 784.0 Headache ??? 780.60BQ Fever ??? 728.85T Muscle Spasticity ??? 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 80650 CAREPLAN: BACLOFEN ??? 564.81 Neurogenic Bowel ??? 453.40U DVT (Deep Venous Thrombosis) ??? 596.54AL Neurogenic Bladder ??? 788.42 Polyuria Subjective Residence: House Assist Available: Spouse Prior level of function: Dependent Equipment: Wheelchair powered and manual Objective: Current Level of Function Bed Mobility: Not tested To be assessed Transfers: Not tested To be assessed Wheelchair Mobility: Not tested To be assessed Ambulation: Not appropriate Stairs: Not appropriate Toileting Needs: no needs Action Taken: N/A Balance and Coordination: Not tested ROM (lower extremity): Within functional limits for tasks done for passive ROM. 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 Endurance: Endurance is impaired. Neurological Sensation: Impaired bilateral LE's, at baseline Tone: on baclofen, no current spasticity noted with testing Perception/Cognition/Orientation: lethargic as he had just returned to bed, has a headache Action Taken: nursing notified of change in orientation Pain C/o headache Action Taken: notified nursing of pain management needs Tolerance: Patient tolerated treatment without adverse effects Education Provide education regarding role of physical therapy during hospitalization Provide support and encouragement and answered questions related to rehab course Adaptive Equipment Recommendations Pt will benefit from use of: a sliding board, wheelchair Patient has own equipment. 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 He was readmitted 04/30 with headache and fevers, found to have neutrophilic pleocytosis, elevated protein and low glucose in the spinal fluid concerning for bacterial meningitis vs post operative chemical meningitis. PT evaluation initiated in the PM. Current orders are for bedrest, however per neurosurgery note from Geetha Osuna RN patient can be up with assist. Patient had just been up withnursing to his wheelchair. Per patient's spouse report, it required a couple people. At baseline, patient transfers with only the assist of his spouse. Completed passive ROM to bilateral LE's, active ROM to bilateral UE's. Note tightness in right shoulder with elevation and abduction; provided gentle stretch. Will follow for transfer training. Discharge needs uncertain at this time. Will make recommendations when able. Plan of care Continue Physical Therapy daily for functional mobility and safety, range of motion, strengthening and endurance, balance and coordination activities and patient/family education. Goals Patient will be able to perform bed mobility and sit to and from supine with minimum assist. Patient to transfer bed to and from chair with moderate assist, of one. Patient to propel wheelchair 100 feet with modified independence. 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 Nutrition Status Classification: Mild Nutritional Risk/Status NUTRITION INTERVENTION 1. Recommend MD consider changing diet order to regular per pt request 2. Order supplements - CIB with meals 3. Encourage adequate intake of diet and supplements NUTRITION MONITORING, EVALUTION, AND OUTCOME GOALS Monitor: dietary intake and tolerance, supplement intake and tolerance, labs per nutrition support protocol and weight changes Outcome Goal(s): 1. Consistently eat 75% of meals 2. Consume 1-3 high protein/high calorie supplements/day 3. Weight maintenance 4. Achieve/maintain labs WNL Follow-up EMR documentation within 6 days Report completed by: Romelia Abebe, DTAlejandro If you have questions, page [phone] Weekend pager: [phone] Nutrition Assessment Data Current Nutrition/Diet Order: Diet: NPO, will resume cardiac diet Current Intake/Digestive Problems: NPO/clear liquids off and on since admit Patient/Family Interview: Appetite ok. Will order CIB with meals until po improves, pt likes milk.Encouraged adequate intake. 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 Weight as of this encounter: 257 lb 0.9 oz(116.6 kg). Last 5 Encounter Wt Readings: ED to Hosp-Admission (Current) on 04/30/2010 04/30/2010 2:07 AM Weight: 116.6 kg (257 lb 0.9 oz) Admission from 04/11/2010 to 04/20/2010 04/11/2010 11:53 AM Weight: 104.327 kg (230 lb) Surgery on 04/11/2010 04/11/2010 11:53 AM Weight: 104.327 kg (230 lb) Admission from 04/05/2010 to 04/06/2010 04/05/2010 3:56 PM Weight: 104.327 kg (230 lb) Surgery on 04/05/2010 04/05/2010 3:56 PM Weight: 104.327 kg (230 lb) Physical Assessment Findings: appears well nourished Pertinent Labs No results found for this basename: hgba1c No results found for this basename: ALB:4 in the last 1500 hours No results found for this basename: PALB:4 in the last 1500 hours No results found for this basename: CRP:4 in the last 1500 hours No results found for this basename: ESR:4 in the last 1500 hours --- End of Report --- Initial Assessments - Aidee Villarreal - 04/30/2010 2:48 AM CDT [facility] Med-Surg / ICU / Rehab / Burn Nursing Initial Assessment Note GENERAL INFORMATION/PATIENT IDENTIFICATION/HISTORY Actual Arrival Date on Unit: 04/30/10 Actual Arrival Time on Unit: 129 Patient a transfer from another hospital for trauma?: No Primary Care Physician or Clinic: Dr Gurinder Baron neurosurgeon Patient Identity Confirmed By: Full name including last, first, and middle;Birthdate Source of Identifying Information: Patient;Family Person (first/last name/phone number) who can help make medical decisions or help in care after hospitalization?: Heather Cullen [phone] 1-2 other people (first/last name) you consider family who may need to be here beyond regular visiting hours?: Heather Cullen Recent Exposure to Communicable Diseases?: No History for Resistant Organism?: None Herbal Medications?: No Allergies: Zaroxolyn Prescriptions prior to admission Medication Sig ??? acetaminophen (AKA TYLENOL) 325 MG tablet Take 1-2 Tabs by mouth every 4 hours as needed for Pain. ??? atorvastatin (LIPITOR) 40 MG tablet Take 1 Tab by mouth daily. ??? azithromycin (ZITHROMAX) 250 MG tablet Take by mouth . Take two tablets on the first day, and take one tablet each day on days 2-5 ??? baclofen (AKA LIORESAL) 10 MG tablet Take 2 Tabs by mouth two times a day as needed. ??? BACLOFEN IT 220 mcg by Intrathecal route daily. ??? citalopram (AKA CELEXA) 40 MG tablet Take 40 mg by mouth daily. ??? cyclobenzaprine (AKA FLEXERIL) 10 MG tablet Take 10 mg by mouth two times a day. ??? docusate sodium (AKA ENEMEEZ) 283 MG enema Insert 5 mL rectally daily as needed. PT. USES ENEMA EVERY OTHER DAY. ??? ferrous sulfate 325 (65 FE) MG tablet Take 1 Tab by mouth daily with breakfast. ??? Gabapentin (AKA NEURONTIN) 100 MG tablet Take 2 Tabs by mouth three times a day. ??? lactulose 10 GM/15ML solution Take 30 [...] is Between July 20 - April 10?: No (stop here) Pneumococcal Assessment Assessment of Age/Risk Factors: Cochlear implants, cerebrospinal fluid leaks Vaccine Status: Received a dose before age 65, LESS than 5 years ago (stop here) H1N1 Influenza Assessment Vaccine Status: (not recorded) HEAD TO TOE ASSESSMENT Neurological Neuro Assessment: Sensation;Gait/coordination (see comments for details) (wheelchair) Sensation: Numb;Tingling Sensation Location: Left leg;Right leg EENT Head/Neck Assessment: Other (see comments) (headache/neck pain and stiffness) Eye Assessment: No apparent abnormalities Glasses and/or contacts?: Glasses - with patient Ear Assessment: No apparent abnormalities Nose Assessment: No apparent abnormalities Throat/Mouth Assessment: No apparent abnormalities Patient have special speech, hearing, or vision needs?: No special needs identified Respiratory Respiratory Assessment: No apparent abnormalities Cough?: No Sputum?: No Respiratory Needs Likely at Discharge?: No Cardiovascular Cardiovascular Assessment: Weakness Gastrointestinal/Nutrition Date of Last Bowel Movement: 04/28/10 GI/Nutritional Assessment: Constipation (bowel program) Diet History: Regular diet Diet History Additional Information: (not recorded) Nutrition Consult Screening: No GI/nutrition screening criteria applicable Genitourinary Assessment: Indwelling catheter Arnol Scale Sensory Perception: 3 Moisture Exposure: 3 Activity: 1 Mobility: 2 Nutrition: 3 Friction/Shear: 1 Arnol Score: 13 Integumentary Integumentary Assessment: Other (see comments) (surgical incision) Musculoskeletal Musculoskeletal Assessment: Pain/stiffness;Equipment;Other (see comments) (thoracic surgery/tumor debulked) Equipment Assessment: Wheelchair MD notified of potential rehab or PT/OT needs due to mobility?: Yes PAIN Patient Experiencing Pain?: Yes Location of Pain: headach and neck stiffness Acute or Chronic?: Acute Pain Level: 8 Current Treatment Methods: dilaudid Method of Expressing Pain: Verbal Desired Pain Goal: 1 Site 2?: No Site 3?: No FUNCTIONAL Recent changes in level of ADLs?: No Eating - Current Level of Assist: Independent Activity - Current Level of Assist: Assistance required Elimination - Current Level of Assist: Assistance required Hygiene - Current Level of Assist: Assistance required Functional Screening: No functional screening criteria is applicable PSYCHOSOCIAL/SPIRITUAL/TEMPLE/CULTURAL/ABUSE/CHEMICAL Suicide Health Inventory Do you currently have or recently had thoughts of harming or killing yourself?: No For nursing interventions, see policy: PC:12:10 History Alcohol Use No History Drug Use No Mental Health Assessment: No apparent abnormalities Occupation: (not recorded) Lives: With spouse Living Situation: Home Social Screening: No discharge planning screening criteria applicable Any agencies or community support services involved prior to admission?: No Guardianship issues affecting care planning?: No Burn Patient?: No Patient have children who will be visiting during hospitalization?: (not recorded) Is the nurse aware, at present, of any needs or issues for which support from the hospital chaplainmight be helpful to patient and/or family? (e.g. need or desire for spiritual support, difficulty coping, end 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, grief/loss, etc.): Yes - Senior Windows Systems Administrator Consult Recommended Cultural practices that affect patient care (per Best Care Questionnaire)?: No Abuse/Assault Screening: No evidence of assault or abuse Chemical Use Screening: No chemical use screening criteria applicable SAFETY Falls Risk Assessment Patient: All Other Patients (Click Here) Age: 1 History of Falls: 4 Cognition: 0 Elimination: 0 Physical Mobility: 4 (non weight bearing) Lines & Tubes: 1 Medications (CV or SPECIAL EVENTS ASSISTANT): 2 Falls Risk Score: (0-4 Low) (5-10 Moderate) (11+ High): 11 Restraints Assessment Restraint Risks: (not recorded) Patient behaviors that put them at risk for restraint use?: No I acknowledge that the above adult initial assessment is complete. Yes, the above assessment is complete. Aidee Villarreal RN documented in this encounter Administered Medications Inactive Administered Medications - up to 3 most recent administrations Medication Order MAR Action Action Date Dose Rate Site acetaminophen (aka TYLENOL) tablet Given 2010 7:32 PM CDT 650 mg 325-650 mg 325-650 mg, Oral, Q4H PRN, Pain, Starting on 04/30/10 at 0722, Until 05/14/10 at 0049, Maximum Daily Acetaminophen dose for patients > 53 k grams per 24 hours Maximum Daily Acetaminophen dose for patients < 53 k mg/kg/day This includes all sources of acetaminophen such as acetaminophen with codeine, acetaminophen with hydrocodone and acetaminophen with oxycodone. Given 05/06/2010 12:25 AM CDT 650 mg Given 05/04/2010 8:15 PM CDT 650 mg atorvastatin (aka LIPITOR) tablet 40 mg Given 05/13/2010 8:00 AM CDT 40 mg 40 mg, Oral, DAILY, First dose on Sat04/30/10 at 0800, Until Discontinued Given 05/12/2010 8:00 AM CDT 40 mg Given 05/11/2010 9:00 AM CDT 40 mg baclofen (aka LIORESAL) tablet 15 mg Given 05/13/2010 8:00 PM CDT 15 mg 15 mg, Oral, TID, First dose (after last modification) on Sat05/12/10 at 1400, Last dose on Sat05/13/10 at 2000, For 5 doses Given 05/13/2010 2:00 PM CDT 15 mg Given 05/13/2010 8:00 AM CDT 15 mg baclofen (aka LIORESAL) tablet 20 mg Given 05/01/2010 8:30 AM CDT 20 mg 20 mg, Oral, BID PRN, spasms, Starting on Sat04/30/10 at 0149, Until Sat05/01/10 at 1117 baclofen (aka LIORESAL) tablet 20 mg Given 05/06/2010 8:00 PM CDT 20 mg 20 mg, Oral, TID, First dose (after last modification) on Sat05/05/10 at 1400, Last dose on Sat05/06/10 at 2000, For 5 doses Given 05/06/2010 2:31 PM CDT 20 mg Given 05/06/2010 9:00 AM CDT 20 mg baclofen (aka LIORESAL) tablet 20 mg Given 05/11/2010 1:00 PM CDT 20 mg 20 mg, Oral, QID, First dose (after last modification) on Sat05/07/10 at 1131, Until Discontinued Given 05/11/2010 9:00 AM CDT 20 mg Given 05/10/2010 8:00 PM CDT 20 mg bisacodyl (aka DULCOLAX) suppository 10 mg Given 05/01/2010 6:30 PM CDT 10 mg 10 mg, Rectal, Q48H, First dose on 05/01/10 at 1120, Until Discontinued, Please give either after Breakfast or dinner and ideally place patient in commode cefepime (aka MAXIPIME) 2 g in NaCl 0.9 % 100 mL Given 05/10/2010 1:00 AM CDT 2 g IV piggyback 2 g, Intravenous, Administer over 30 Minutes, Q12H (NON-STND), First dose on Sat05/02/10 at 1300, Refrigerate until use Given 05/09/2010 3:45 PM CDT 2 g Given 05/09/2010 1:00 AM CDT 2 g cefepime (aka MAXIPIME) 2 g in NaCl 0.9 % 100 mL Given 05/12/2010 7:00 AM CDT 2 g IV piggyback 2 g, Intravenous, Administer over 30 Minutes, Q12H (NON-STND), First dose (after last modification) on Sat05/10/10 at 1300, For 5 doses, Refrigerate until use Given 05/11/2010 7:00 PM CDT 2 g Given 05/11/2010 9:00 AM CDT 2 g ceftriaxone (aka ROCEPHIN) 2 g in NaCl 0.9 % 100 Given 04/29/2010 6:15 PM CDT 2 g mL IV piggyback 2 g, Intravenous, Administer over 30 Minutes, ONCE, On 04/29/10 at 1638, For 1 dose citalopram (aka CELEXA) tablet 40 mg Given 05/13/2010 8:00 AM CDT 40 mg 40 mg, Oral, DAILY, First dose on Sat04/30/10 at 0800, Until Discontinued Given 05/12/2010 8:00 AM CDT 40 mg Given 05/11/2010 9:00 AM CDT 40 mg cyclobenzaprine (aka FLEXERIL) tablet 10 mg Given 05/01/2010 9:30 AM CDT 10 mg 10 mg, Oral, TID PRN, Muscle Spasms, Starting on 04/30/10 at 0150, Until 05/14/10 at 0049 Given 04/30/2010 4:01 PM CDT 10 mg DIAZEpam (aka VALIUM) tablet 10 mg Given 04/29/2010 6:29 PM CDT 10 mg 10 mg, Oral, NOW, On 6/19/10 at 1829, For 1 dose docusate sodium (aka ENEMEEZ) enema 283 mg Given 05/08/2010 7:04 PM CDT 283 mg 283 mg (1 Enema), Rectal, DAILY PRN, Constipation, Starting on 04/30/10 at 0722, Until 05/14/10 at 0049, as stool-softner Given 05/06/2010 6:00 PM CDT 283 mg Given 05/04/2010 7:55 PM CDT 283 mg enoxaparin (aka LOVENOX) injection 109.5 mg Given 05/08/2010 8:00 AM CDT 109.5 mg 109.5 mg (110 mg), Subcutaneous, Q12H, First dose on 05/07/10 at 2000, Until Discontinued Given 2010 8:00 PM CDT 109.5 mg enoxaparin (aka LOVENOX) injection 115.5 mg Given 05/13/2010 8:00 PM CDT 115.5 mg 115.5 mg (115 mg), Subcutaneous, Q12H, First dose on [place] 05/11/10 at 0800, Until Discontinued Given 05/13/2010 8:00 AM CDT 115.5 mg Given 05/12/2010 8:30 PM CDT 115.5 mg Abdom inal Tissue FENTanyl (aka SUBLIMAZE) injection 12.5-50 Given 05/09/2010 3:10 PM CDT 50 mcg mcg 12.5-50 mcg, Intravenous, PACU, Starting on 05/09/10 at 1108, Until 05/09/10 at 1756, May give up to a maximum dose of 3 mcg/kg. Use in PACU only Given 05/09/2010 2:33 PM CDT 50 mcg ferrous sulfate tablet 325 mg Given 05/02/2010 8:00 AM CDT 325 mg 325 mg, Oral, QDAY WITH MEAL, First dose on 04/30/10 at 0800, Until Discontinued Given 05/01/2010 8:30 AM CDT 325 mg Given 04/30/2010 8:00 AM CDT 325 mg gabapentin (aka NEURONTIN) capsule 200 m g Given 05/13/2010 8:00 PM CDT 200 mg 200 mg, Oral, TID, First dose on [place] 04/30/10 at 0800, Until Discontinued Given 05/13/2010 2:00 PM CDT 200 mg Given 05/13/2010 8:00 AM CDT 200 mg gentamicin 8 mg, vancomycin (aka VANCOCIN) 20 mg Given 0 1:04 PM CDT in NaCl 0.9 % 8 mL Injection, INTRA-OP, Starting on Sat05/09/10 at 1054, For 1 dose heparin injection 400 Units Given 05/13/2010 8:00 AM CDT 400 Units 400 Units (4 mL), Intravenous, BID, First dose on Sat05/01/10 at 1310, To each lumen as appropriate Given 05/12/2010 11:15 PM CDT 400 Units Given 05/12/2010 8:30 PM CDT 400 Units heparin injection 400 Units Given 05/02/2010 2:41 AM CDT 400 Units 400 Units (4 mL), Intravenous, PRN AFTER EVERY IV MEDICATION & LAB DRAW, Line Patency, Starting on Sat05/01/10 at 1309, To each lumen as appropriate hydrocodone-acetaminophen (aka Given 2010 8:22 PM CDT 2 Ta blets VICODIN,LORTAB) 5-500 MG tablet 1-2 Tab 1-2 Tablet, Oral, Q4H PRN, Pain, Starting on Sat05/01/10 at 1747, Maximum Daily Acetaminophen dose for patients > 53 k g/day Maximum Daily Acetaminophen dose for patients < 53 k mg/kg/day This product contains 500 mg Acetaminophen per tablet. Given 05/06/2010 3:58 PM CDT 2 Tablets Given 05/05/2010 7:40 PM CDT 2 Tablets hydrocodone-acetaminophen (aka Given 05/13/2010 2:30 PM CDT 2 Ta blets VICODIN,LORTAB) 5-500 MG tablet 1-2 Tab 1-2 Tablet, Oral, Q4H PRN, Pain, Starting on Sat05/12/10 at 1213, Maximum Daily Acetaminophen dose for patients > 53 k g/day Maximum Daily Acetaminophen dose for patients < 53 k mg/kg/day This product contains 500 mg Acetaminophen per tablet. Given 05/12/2010 8:28 PM CDT 2 Tablets Given 05/12/2010 12:24 PM CDT 2 Tablets HYDROmorphone (aka DILAUDID) 10 mg Started 05/09/2010 7:20 PM CDT 1 mg/hr 5 mL/hr in NaCl 0.9 % 50 mL [employer] READING TEACHER syringe Intravenous, TITRATE, Starting on Tu05/09/10 at 1756, Until [place] 05/11/10 at 1525 HYDROmorphone (aka DILAUDID) injection Given 05/09/2010 3:10 PM CDT 0.2 mg 0.1-0.2 mg 0.1-0.2 mg, Intravenous, PACU, Starting on Sat05/09/10 at 1108, Until Sat05/09/10 at 1755, Up to an hourly maximum of 2 mg. May give every 10 minutes. Use in PACU only Given 05/09/2010 2:32 PM CDT 0.2 mg HYDROmorphone (aka DILAUDID) injection 0.5-1 Given 5:35 PM CDT 0.5 mg mg 0.5-1 mg, Intravenous, Q1H PRN, Pain, Starting on Sat04/30/10 at 0722, Until Sat05/09/10 at 1756 Given 05/09/2010 4:30 PM CDT 0.5 mg Given 05/05/2010 4:00 AM CDT 0.5 mg HYDROmorphone (aka DILAUDID) injection 0 .5-1 mg Given 04/30/2010 1:45 AM CDT 1 mg 0.5-1 mg, Intravenous, Q1H PRN, Pain, Starting on Sat04/30/10 at 0139, Until Sat04/30/10 at 0751 HYDROmorphone (aka DILAUDID) injection 1 mg Given 04/29/2010 5:30 PM CDT 1 mg 1 mg, Intravenous, ONCE, On 04/29/10 at 1638, For 1 dose HYDROmorphone (aka DILAUDID) injection 1 mg Given 04/29/2010 9:00 PM CDT 1 mg 1 mg, Intravenous, ONCE, On 04/29/10 at 2100, For 1 dose HYDROmorphone (aka DILAUDID) injection 1 mg Given 04/30/2010 2:25 AM CDT 1 mg 1 mg, Intravenous, NOW, On Sat04/30/10 at 0226, For 1 dose iron polysaccharide complex (aka NIFEREX) Given 05/03/2010 8:00 AM CDT 150 mg capsule 150 mg 150 mg, Oral, DAILY, First dose on Sat05/02/10 at 1135 Given 05/02/2010 11:35 AM CDT 150 mg iron polysaccharide complex (aka Given 05/13/2010 8:00 AM CDT 1 Capsule NIFEREX-150) 150-50-50 MG capsule 1 Cap 1 Capsule, Oral, DAILY, First dose on Sat05/04/10 at 0800 Given 05/12/2010 8:00 AM CDT 1 Capsule Given 05/11/2010 9:00 AM CDT 1 Capsule lactulose 200 g in sterile water 200 mL Given 05/12/2010 10:35 A M CDT 300 mL rectal 300 mL, Rectal, ONCE PRN, severe constipation , Starting on Sat05/02/10 at 1543, For 1 dose lactulose oral liquid 20 g Given 05/06/2010 3:00 PM CDT 20 g 20 g (30 mL), Oral, Q3H PRN, for constipation , Starting on Sat05/02/10 at 1544, Until [facility] 05/06/10 at 1500, For 2 doses Given 05/02/2010 7:46 PM CDT 20 g lactulose oral liquid 20 g Given 05/12/2010 9:52 AM CDT 20 g 20 g (30 mL), Oral, BID PRN, constipation, Starting on Sat05/11/10 at 1050, Until [place] 05/14/10 at 0049 Given 05/11/2010 2:50 PM CDT 20 g lidocaine-epinephrine 1-1:178249 % injec tion Given 05/09/2010 1:04 PM CDT 19 mL INTRA-OP, Starting on Sat05/09/10 at 0857, For 1 dose, Verify Route and Dose with Surgeon Prior to Administration LORazepam (aka ATIVAN) tablet 1 mg Given 05/13/2010 8:00 PM CDT 1 mg 1 mg, Oral, TID, First dose on Sat04/30/10 at 0800, Until Discontinued Given 05/13/2010 2:00 PM CDT 1 mg Given 05/13/2010 8:00 AM CDT 1 mg meropenem (aka MERREM) 2,000 mg in NaCl 0.9 Given 04/12 1:20 AM CDT 2,000 mg % 100 mL IV piggyback 2,000 mg (2 g), Intravenous, Q8H (NON-STND), First dose on 04/29/10 at 1655, Please start after spinal tap meropenem (aka MERREM) 2,000 mg in NaCl Given 05/02/2010 11:00 A M CDT 2,000 mg 0.9 % 100 mL IV piggyback 2,000 mg (2 g), Intravenous, Q8H (NON-STND), First dose on Sat04/30/10 at 0800 Given 05/02/2010 12:00 AM CDT 2,000 mg Given 05/01/2010 4:00 PM CDT 2,000 mg metroNIDAZOLE-NaCl 0.9% (aka FLAGYL) infusion Given 5:30 PM CDT 500 mg 500 mg 500 mg, Intravenous, Q6H (NON-STND), First dose on 04/29/10 at 1657 NaCl 0.9 % infusion 1,000 mL Started 04/30/2010 2:00 AM CDT 1,000 mL 125 mL/hr 1,000 mL, Intravenous, at 125 mL/hr, CONTINUOUS, Starting on 04/30/10 at 0159 NaCl 0.9 % infusion 1,000 mL Given 05/01/2010 12:18 AM CDT 1,000 mL 1000 mL/hr 1,000 mL, Intravenous, at 1,000 mL/hr, ONCE, On Sat05/01/10 at 0018, For 1 dose NaCl 0.9 % infusion 1,000 mL Started 05/05/2010 10:09 AM CDT 1,000 mL 120 mL/hr 1,000 mL, Intravenous, at 120 mL/hr, CONTINUOUS, Starting on Sat05/01/10 at 0019 Started 05/04/2010 5:13 PM CDT 1,000 mL 120 mL/hr Started 05/03/2010 9:45 PM CDT 1,000 mL 120 mL/hr NaCl 0.9 % infusion 250 mL Started 05/13/2010 1:30 PM CDT 250 mL mL/hr 250 mL, Intravenous, CONTINUOUS, Starting on 05/13/10 at 1248 NaCl 0.9 % infusion 500 mL Given 04/29/2010 5:30 PM CDT 500 mL 500 mL, Intravenous, ONCE, On 04/29/10 at 1638, For 1 dose ondansetron (aka ZOFRAN) injection 4 mg Given 05/10/2010 2:20 PM CDT 4 mg 4 mg, Intravenous, Q8H PRN, Nausea, Vomiting, Starting on 05/10/10 at 1416 ondansetron (aka ZOFRAN) injection 8 mg Given 04/29/2010 5:30 PM CDT 8 mg 8 mg, Intravenous, ONCE, On 04/29/10 at 1638, For 1 dose oxycoDONE-acetaminophen (aka PERCOCET) Given 04/30/2010 2:30 AM CDT 2 Tablets 5-325 MG tablet 1-2 Tab 1-2 Tablet, Oral, Q4H PRN, Pain, Starting on Sat04/30/10 at 0151, Until Sat04/30/10 at 0751, Maximum Daily Acetaminophen dose for patients > 53 k g/day Maximum Daily Acetaminophen dose for patients < 53 k mg/kg/day This product contains 325 mg Acetaminophen per tablet. oxycoDONE-acetaminophen (aka PERCOCET) Given 05/01/2010 1:15 PM CDT 2 Tablets 5-325 MG tablet 1-2 Tab 1-2 Tablet, Oral, Q4H PRN, Pain, Starting on Sat04/30/10 at 0752, Until Sat05/01/10 at 1747, Maximum Daily Acetaminophen dose for patients > 53 k g/day Maximum Daily Acetaminophen dose for patients < 53 k mg/kg/day This product contains 325 mg Acetaminophen per tablet. polyethylene glycol 3350 (aka GLYCOLAX) powder Given 0 05/13/2010 8:00 AM CDT 17 g 17 g 17 g, Oral, DAILY, First dose on Sat05/01/10 at 1118 Given 05/12/2010 8:00 AM CDT 17 g Given 05/11/2010 9:00 AM CDT 17 g potassium chloride (aka K-DUR,KLOR-CON M) Given 05/13/2010 8:00 AM CDT 40 mEq extended release tablet 40 mEq 40 mEq, Oral, DAILY, First dose on Sat05/09/10 at 0800 Given 05/12/2010 8:00 AM CDT 40 mEq Given 05/11/2010 9:00 AM CDT 40 mEq potassium chloride (aka K-CHARU) packet 40 mEq Given 2010 9:30 AM CDT 40 mEq 40 mEq, Oral, QDAY PC, First dose on 05/07/10 at 0900, For 1 dose, Mix with 6-8 oz water before administering. povidone-iodine (aka BETADINE) 10 % topi claude liquid Given 05/13/2010 8:00 PM CDT Topical, BID, First dose on 04/30/10 at 0800, Apply topically to back wound Hazardous waste, dispose of in Black Box. Given 05/13/2010 8:00 AM CDT Given 05/12/2010 8:30 PM CDT senna (aka SENOKOT) tablet 17.2 mg Given 05/01/2010 8:30 AM CDT 17.2 mg 17.2 mg (2 Tablet), Oral, DAILY, First dose on 04/30/10 at 0800, Until Discontinued, as laxative/stimulant agent Given 04/30/2010 8:00 AM CDT 17.2 mg senna (aka SENOKOT) tablet 17.2 mg Given 05/13/2010 8:00 PM CDT 17.2 mg 17.2 mg (2 Tablet), Oral, BID, First dose (after last modification) on 05/01/10 at 2000, Until Discontinued, as laxative/stimulant agent Given 05/13/2010 8:00 AM CDT 17.2 mg Given 05/12/2010 8:30 PM CDT 17.2 mg skin protectant (aka LANTISEPTIC) ointment Given 05/02 3:00 AM CDT 1 Squirt 1 Squirt 1 Squirt, Topical, QID PRN, Wound Care, Starting on 04/30/10 at 0430, For 10 days, Pharmacy please send me this product: LANTISEPTIC Apply topically to buttocks Hazardous waste, dispose of in Black Box. sulfamethoxazole-trimethoprim (aka BACTRIM Given 05/13 8:00 PM CDT 1 Tablet DS) 800-160 MG tablet 1 Tab 1 Tablet, Oral, BID, First dose on 05/13/10 at 0800, For 30 days Given 05/13/2010 8:00 AM CDT 1 Tablet vancomycin (aka VANCOCIN) 1,250 mg in NaCl Given 05/02 8:14 AM CDT 1,250 mg 0.9 % 250 mL IV PIGGYBACK Administer over 90 Minutes, Intravenous, Q8H (NON-STND), First dose (after last modification) on Sat05/02/10 at 0814, Until Discontinued vancomycin (aka VANCOCIN) 1,500 mg in NaCl Given 05/01 10:15 PM CDT 1,500 mg 0.9 % 250 mL IV PIGGYBACK Administer over 90 Minutes, Intravenous, Q12H, First dose on [place] 04/30/10 at 0800, Until Discontinued Given 05/01/2010 9:30 AM CDT 1,500 mg Given 04/30/2010 8:15 PM CDT 1,500 mg vancomycin (aka VANCOCIN) 1,750 mg in NaCl Given 05/03 5:45 PM CDT 1,750 mg 0.9 % 500 mL IV PIGGYBACK Administer over 90 Minutes, Intravenous, Q12H (NON-STND), First dose on Sat05/02/10 at 1600, Until Discontinued Given 05/03/2010 4:00 AM CDT 1,750 mg Given 05/02/2010 4:00 PM CDT 1,750 mg vancomycin (aka VANCOCIN) 2,000 mg in NaCl Given 05/10 6:00 AM CDT 2,000 mg 0.9 % 500 mL IV PIGGYBACK Administer over 90 Minutes, Intravenous, Q12H (NON-STND), First dose on [facility] 05/04/10 at 0600, Until Discontinued Given 05/09/2010 6:00 PM CDT 2,000 mg Given 05/09/2010 6:00 AM CDT 2,000 mg vancomycin (aka VANCOCIN) 2,000 mg in NaCl Given 05/12 8:30 PM CDT 2,000 mg 0.9 % 500 mL IV PIGGYBACK Administer over 90 Minutes, Intravenous, Q12H (NON-STND), 5 doses, First dose (after last modification) on Sat05/10/10 at 1800, Last dose on Sat05/12/10 at 2000 Given 05/12/2010 8:00 AM CDT 2,000 mg Given 05/11/2010 8:00 PM CDT 2,000 mg vancomycin 1 g IV piggyback PYXIS Given 04/29/2010 8:15 PM CDT 1 g 1 g, Intravenous, Administer over 60 Minutes, NOW, On 04/29/10 at 1641, For 1 dose, Please do not start before LP! warfarin (aka COUMADIN) dose is 0 mg for today Given 05/04/2010 4:00 PM CDT mg ONCE, 1 dose, On [place] 05/04/10 at 1600 warfarin (aka COUMADIN) tablet 5 mg Given 05/02/2010 4:00 PM CDT 5 mg 5 mg, Oral, ONCE, On Sat05/02/10 at 1600, For 1 dose, Hazardous waste, dispose of in black box. Vitamin K antagonizes the effects of warfarin. Maintain consistent intake of vitamin K in the diet. warfarin (aka COUMADIN) tablet 5 mg Given 05/06/2010 4:00 PM CDT 5 mg 5 mg, Oral, WARFARIN - DAILY, First dose on Sat05/05/10 at 1600, Until Discontinued, Hazardous waste, dispose of in black box. Vitamin K antagonizes the effects of warfarin. Maintain consistent intake of vitamin K in the diet. Given 05/05/2010 4:00 PM CDT 5 mg warfarin (aka COUMADIN) tablet 5 mg Given 05/13/2010 4:00 PM CDT 5 mg 5 mg, Oral, WARFARIN - DAILY, First dose on Sat05/11/10 at 1600, Until Discontinued, Hazardous waste, dispose of in black box. Vitamin K antagonizes the effects of warfarin. Maintain consistent intake of vitamin K in the diet. Given 05/12/2010 4:25 PM CDT 5 mg Given 05/11/2010 7:10 PM CDT 5 mg warfarin (aka COUMADIN) tablet 7.5 mg Given 04/30/2010 8:20 PM CDT 7.5 mg 7.5 mg, Oral, ONCE, On Sat04/30/10 at 1837, For 1 dose, Hazardous waste, dispose of in black box. Vitamin K antagonizes the effects of warfarin. Maintain consistent intake of vitamin K in the diet. documented in this encounter Active and Recently Administered Medications Times are shown in CDT. Scheduled Medication Order 05/11/2010 05/12/2010 05/13/2010 atorvastatin (aka LIPITOR) tablet 40 mg (CANCELED) 090 0 (Given - Provider: Garth Rodriguez) 0800 (Given - Provider: Dave Sapp PA-C) 080 0 (Given - Provider: Ozzy Dietz RN) 40 mg, Oral, DAILY, First dose on 04/30/10 at 0800, Until Dis continued baclofen (aka LIORESAL) tablet 10 mg 10 mg, Oral, TID, 6 doses, First dose on Sat05/14/10 at 0800, Last dose on Sat05/15/10 at 2000 baclofen (aka LIORESAL) tablet 15 mg (CANCELED) 1400 (Refused - Provider: Dave Sapp PA-C)2030 (Refused - Provider: Loretta Walters RN) 0800 (Given - Provider: Ozzy Dietz RN)1400 (Given - Provider: Ozzy Dietz RN)1999 (Given - Provider: Dulce Palafox) 15 mg, Oral, TID, 5 doses, First dose on Sat05/12/10 at 1400, Last dose on Sat05/13/10 at 2000 baclofen (aka LIORESAL) tablet 20 mg (CANCELED) 0900 ( Given - Provider: Garth Rodriguez)1300 (Given - Provider: Garth Rodriguez)1600 (Held - Provider: Loretta Walters - Comment: pt very lethargic)2200 (Refused - Provider: Loretta Walters) 20 mg, Oral, QID, First dose on 05/07/10 at 1131, Until Disco ntinued cefepime (aka MAXIPIME) 2 g in NaCl 0.9 % 100 mL IV pi ggyback () 0147 (Not Given - Provider: Merced Snowden, VALERIE - Reason: Other (Enter Reason in Comment Area) - Comment: tubing clamped. did not receive medication. noticed @ 0600.)0900 (Given - Provider: Garth Rodriguez)1900 (Given - Provider: Loretta Walters) 0700 (Given - Provider: Merced Snowden, VALERIE) IV, Q12H (NON-STND), 5 doses, First dose on Sat05/10/10 at 1300, Last dose on Sat05/12/10 at 0700 citalopram (aka CELEXA) tablet 40 mg (CANCELED) 0900 ( Given - Provider: Garth Rodriguez) 0800 (Given - Provider: Dave Sapp PA-C) 080 0 (Given - Provider: Ozzy Dietz RN) 40 mg, Oral, DAILY, First dose on Sat04/30/10 at 0800, Until Dis continued enoxaparin (aka LOVENOX) injection 115.5 mg 0900 (Give n - Provider: Garth Rodriguez)2200 (Given - Provider: Loretta Walters) 0800 (Given - Provider: Dave Sapp PA-C)2030 (Given - Provider: Loretta Walters RN) 0800 (Given - Provider: Ozzy Dietz RN)1999 (Given - Provider: Dulce Palafox) 115 mg = 115.5 mg, SC, Q12H, First dose on Sat05/11/10 at 0800, Until Discontinued gabapentin (aka NEURONTIN) capsule 200 mg (CANCELED) 0 900 (Given - Provider: Garth Rodriguez)1305 (Given - Provider: Garth Rodriguez)2200 (Given - Provider: Loretta Walters) 0800 (Given - Provider: Dave mclean PA-C)1625 (Given - Provider: Loretta Walters RN)2030 (Given - Provider: Loretta Walters RN) 08 (Given - Provider: Ozzy Dietz RN)1400 (Given - Provider: Ozzy Dietz RN)1999 (Given - Provider: Dulce Palafox) 200 mg, Oral, TID, First dose on Sat04/30/10 at 0800, Until Disc ontinued heparin injection 400 Units (CANCELED) 0800 (Not Given - Provider: Garth Rodriguez - Reason: IV Infusing)1999 (Not Given - Provider: Loretta Walters - Reason: IV Infusing) 0800 (Given - Provider: Dave mclean PA-C)2030 (Given - Provider: Loretta Walters RN - Comment: x1 lumen)2315 (Given - Provider: Loretta Walters RN) 0800 (Given - Provider: Ozzy gold RN)1999 (Held - Provider: Dulce Palafox) 4 mL = 400 Units, IV, BID, First dose on Sat05/01/10 at 1310, Until Discontinued iron polysaccharide complex (aka NIFEREX -150) 150-50-50 MG capsule 1 Cap (CANCELED) 0900 (Given - Provider: Garth Rodriguez) 0800 (Given - Provider: Dave Sapp PA-C) 0800 (Given - Provider: Ozzy gold RN) 1 Cap, Oral, DAILY, First dose on Sat05/04/10 at 0800, Until Dis continued LORazepam (aka ATIVAN) tablet 1 mg (CANCELED) 0900 (Gi lore - Provider: Garth Rodriguez)1305 (Given - Provider: Garth Rodriguez)2200 (Given - Provider: Loretta Walters) 0800 (Given - Provider: Dave mclean PA-C)1625 (Given - Provider: Loretta Walters RN)2030 (Given - Provider: Loretta Walters RN) 0800 (Given - Provider: Ozzy Dietz RN)1400 (Given - Provider: Ozzy Dietz RN)1999 (Given - Provider: Dulce Palafox) 1 mg, Oral, TID, First dose on Sat04/30/10 at 0800, Until Discon tinued polyethylene glycol 3350 (aka GLYCOLAX) powder 17 g (C ANCELED) 0900 (Given - Provider: Garth Rodriguez) 0800 (Given - Provider: Dave Sapp PA-C) 0800 (Given - Provider: Ozzy Dietz RN) 17 g, Oral, DAILY, First dose on Sat05/01/10 at 1118, Until Disc ontinued potassium chloride (aka K-DUR,KLOR-CON M ) extended release tablet 40 mEq (CANCELED) 0900 (Given - Provider: Garth Rodriguez) 0800 (Given - Provider: Dave Sapp PA-C) 08 (Given - Provider: Ozzy gold, VALERIE) 40 mEq, Oral, DAILY, First dose on Sat05/09/10 at 0800, Until Di scontinued povidone-iodine (aka BETADINE) 10 % topical liquid (CA NCELED) 0900 (Given - Provider: Garth Rodriguez)2199 (Canceled Entry - Provider: Loretta Walters) 999 (Given - Provider: Dave Sapp PA-C)2029 (Given - Provider: Loretta Walters RN) 08 (Given - Provider: Ozzy gold RN)1999 (Given - Provider: Dulce Palafox) Topical, BID, First dose on 04/30/10 at 0800, Until Discontin ued senna (aka SENOKOT) tablet 17.2 mg (CANCELED) 0900 (Gi lore - Provider: Garth Rodriguez)2199 (Given - Provider: Loretta Walters) 08 (Given - Provider: Dave Sapp PA-C)2029 (Given - Provider: Loretta Walters RN) 08 (Given - Provider: Ozzy Dietz RN)1999 (Given - Provider: Dulce Palafox) 2 Tab = 17.2 mg, Oral, BID, First dose o n 05/01/10 at 1999, Until Discontinued sulfamethoxazole-trimethoprim (aka BACTRIM DS) 800-160 MG tablet 1 Tab 0800 (Given - Provider: Ozzy Dietz RN)1999 (Given - Provider: Dulce Palafox) 1 Tab, Oral, BID, 60 doses, First dose o n 05/13/10 at 0800, Last dose on 06/11/10 at 1999 vancomycin (aka VANCOCIN) 2,000 mg in Na Cl 0.9 % 500 mL IV PIGGYBACK (COMPLETED) 0600 (Given - Provider: Merced haynes RN)1999 (Given - Provider: Loretta Walters - Comment: run over 2 hours) 08 (Given - Provider: Dave mclean PA-C)2030 (Given - Provider: Loretta Walters, VALERIE) for 90 Minutes, IV, Q12H (NON-STND), 5 d oses, First dose on Sat05/10/10 at 1800, Last dose on Sat05/12/10 at 2000 warfarin (aka COUMADIN) tablet 5 mg (CANCELED) 1910 (G iven - Provider: Loretta Walters) 1625 (Given - Provider: Loretta Walters, VALERIE) 1600 (Given - Provider: Dulce Palafox) 5 mg, Oral, WARFARIN - 1600, First dose on [place] 05/11/10 at 1600, Until Discontinued Continuous Medication Order 05/11/2010 05/12/2010 05/13/2010 NaCl 0.9 % infusion 250 mL (CANCELED) 1330 (Started - Provider: Ozzy Dietz, VALERIE) 250 mL, IV, CONTINUOUS, Starting 05/13/10 at 1248, Until Disco ntinued PRN Medication Order 05/11/2010 05/12/2010 05/13/2010 cyclobenzaprine (aka FLEXERIL) tablet 10 mg 10 mg, Oral, TID PRN, Starting Sun at 0150, Until Discontinued, Muscle Spasms hydrocodone-acetaminophen (aka VICODIN,LORTAB) 5-500 MG tabl et 1-2 Tab 1224 (Given - Provider: Dave Sapp PA-C)2027 (Given - Provider: Loretta Walters RN) 1430 (Given - Provider: Ozzy gold RN) 1-2 Tab, Oral, Q4H PRN, Starting Sat05/12/10 at 1213, Until Disco ntinued, Pain lactulose 200 g in sterile water 200 mL rectal (COMPLETED) 1035 (Given - Provider: Dave Sapp PA-C) 300 mL, Rectal, ONCE PRN, 1 dose, Starti ng Tue 05/02/10 at 1543, Until Discontinued, severe constipation lactulose oral liquid 20 g (CANCELED) 1450 (Given - Provider : Garth Rodriguez) 0952 (Given - Provider: Dave Sapp PA-C) 30 mL = 20 g, Oral, BID PRN, Starting Th u 05/11/10 at 1050, Until Discontinued, constipation documented in this encounter Care Teams Psychology Professor Relationship Specialty Start Date End Date Unassigned, Provider PCP - General 11/28/01 05/21/[address] [place] [id number] documented as of this encounter
--- OUTSIDE RECORDS SUMMARY | 2022-06-20 02:34 | XMS_ITS | Encounter Summary ---
:1945 Author Organization [facility] Address [address] [place] [id number] Care Team Providers Name Role Phone Unassigned, Provider Primary Care Provider Unavailable Encounter Details Date Type Department Care Team Description 05/09/2010 Consent for [facility] INFORM ED CONSENT Procedure/Treatment RECORD Social History Tobacco Use Types Packs/Day Years Used Date Smoking Tobacco: Never Alcohol Use Standard Drinks/Week Comments No 0 (1 standard drink = 0.6 oz pure alcoho l) Sex Assigned at Date Recorded Male 08/06/2021 5:59 PM CDT documented as of this encounter Progress Notes Interface, In Chrtscr And Scan - 05/18/2010 12:41 PM CDT documented in this encounter Plan of Treatment Not on filedocumented as of this encounter Visit Diagnoses Not on filedocumented in this encounter Care Teams Wall Cleaner Relationship Specialty Start Date End Date Unassigned, Provider PCP - General 11/28/01 05/21/[address] [place] [id number] documented as of this encounter
--- OUTSIDE RECORDS SUMMARY | 2022-06-20 02:35 | XMS_ITS | Encounter Summary ---
:1945 Author Organization [facility] Address [address] [place] [address] Care Team Providers Name Role Phone Unassigned, Provider Primary Care Provider Unavailable Encounter Details Date Type Department Care Team Description 04/29/2010 Imaging [facility] [address], [place] [id number] Social History Tobacco Use Types Packs/Day Years Used Date Smoking Tobacco: Never Alcohol Use Standard Drinks/Week Comments No 0 (1 standard drink = 0.6 oz pure alcoho l) Sex Assigned at Date Recorded Male 08/06/2021 5:59 PM CDT documented as of this encounter Plan of Treatment Not on filedocumented as of this encounter Procedures Procedure Name Priority Date/Time Associated Diagnosis Comme nts XR ABD AP/OBLS/LAT STAT 04/30/2010 12:24 AM Re sults for this CDT procedure are i n the results section. documented in this encounter Results XR ABDOMEN AP/OBLIQUES/LATERAL (04/30/2010 12:24 AM CDT) [...] bowel gas pattern. Procedure Note Donnie Mondragon H - 04/30/2010Formatting o f this note might [...] gas pattern. Cristine Henson MD RAD GD documented in this encounter Visit Diagnoses Not on filedocumented in this encounter Care Teams Blood Bank Credit Clerk Relationship Specialty Start Date End Date Unassigned, Provider PCP - General 11/28/01 05/21/[address] [place] [id number] documented as of this encounter
--- OUTSIDE RECORDS SUMMARY | 2022-06-20 02:35 | XMS_ITS | Encounter Summary ---
:1945 Author Organization [facility] Address [address] [place] [address] Care Team Providers Name Role Phone Unassigned, Provider Primary Care Provider Unavailable Encounter Details Date Type Department Care Team Description 04/29/2010 Correspondence [facility], MRI SAFETY SHEET [address] [place] [address] [place] [address] Social History Tobacco Use Types Packs/Day Years Used Date Smoking Tobacco: Never Alcohol Use Standard Drinks/Week Comments No 0 (1 standard drink = 0.6 oz pure alcoho l) Sex Assigned at Date Recorded Male 08/06/2021 5:59 PM CDT documented as of this encounter Progress Notes [facility]IOLOGY, PROVIDER - 05/01/2010 5:14 PM CDT documented in this encounter Plan of Treatment Not on filedocumented as of this encounter Visit Diagnoses Not on filedocumented in this encounter Care Teams Pari Mutuel Clerk Relationship Specialty Start Date End Date Unassigned, Provider PCP - General 11/28/01 05/21/10 [address] [place] [address] documented as of this encounter
--- OUTSIDE RECORDS SUMMARY | 2022-06-20 02:35 | XMS_ITS | Encounter Summary ---
:1945 Author [facility] Address [address] [place] [address] Care Team Providers Name Role Phone Unassigned, Provider Primary Care Provider Unavailable Encounter Details Date Type Department Care Team Description 04/30/2010 Invasive Imaging [facility] [address] [place] [address] Social History Tobacco Use Types Packs/Day Years Used Date Smoking Tobacco: Never Alcohol Use Standard Drinks/Week Comments No 0 (1 standard drink = 0.6 oz pure alcoho l) Sex Assigned at Date Recorded Male 08/06/2021 5:59 PM CDT documented as of this encounter Plan of Treatment Not on filedocumented as of this encounter Procedures Procedure Name Priority Date/Time Associated Diagnosis Comme nts FL LUMBAR PUNCTURE Routine 04/30/2010 11:34 AM Re sults for this (FOR CSF) CDT procedure are i n the results section. documented in this encounter Results FL LUMBAR PUNCTURE (FOR CSF) (04/30/2010 11:34 [...] fluoro time. IMPRESSION: Successful lumbar puncture. Yomi SAMSON [place] documented in this encounter Visit Diagnoses Not on filedocumented in this encounter Care Teams Web Merchant Relationship Specialty Start Date End Date Unassigned, Provider PCP - General 11/28/01 05/21/[address] [place] [id number] documented as of this encounter
--- OUTSIDE RECORDS SUMMARY | 2022-06-20 02:35 | XMS_ITS | Encounter Summary ---
:1945 Author Organization [facility] Address [address] [place] [address] Care Team Providers Name Role Phone Unassigned, Provider Primary Care Provider Unavailable Reason for Visit Reason Comments Post Hospital Discharge Follow Up Encounter Details Date Type Department Care Team Description 04/21/2010 Telephone Regional [employer] Truck Driver Brittny Leyva, Post Hospital [address] - sequencing machine operator [place] Up [id number] [facility] [address] [place], [place] [id number] [place] [address] [id number] Social History Tobacco Use Types Packs/Day Years Used Date Smoking Tobacco: Never Alcohol Use Standard Drinks/Week Comments No 0 (1 standard drink = 0.6 oz pure alcoho l) Sex Assigned at Date Recorded Male 08/06/2021 5:59 PM CDT documented as of this encounter Nursing Notes Brittny Leyva, RN - 04/21/2010 6:06 PM CDT Carl Cullen was hospitalized for DEBULKING OF THORACIC EPENDYMOMA and discharged from [facility] on 04/20/10 to home. Spoke with patient. Patient having difficulty with ADL???s? yes ambulating, IN W/C, BUT HAS FAMILY HELP FOR ALL ADS'S. Reconciled discharge medications with patient. Discrepancies noted: BOWEL PROGRAM QOD WITH ENEMA/SENNA TABLETS. Concerns discussed: Symptoms STILL NOT ABLE TO USE LE'S. Pain control: Pain is at 3 on a scale of 1-10 and controlled. NO PAIN MEDS ACCEPT TYLENOL. PT. STATES HE IS COMFORTABLE. Patient teaching: Coumadin/INR Reviewed hospital discharge instructions Reviewed when to call Careline and number to call: [phone] or Confirmed using teach back method that patient and/or caregiver can state their medications and doses to take, discharge instructions, appointments they have scheduled, who to call if their condition worsens. Follow up Plan: INR : SCHEDULING INSTRUCTIONS (date/time): 1-2 days from discharge with results forwarded to PMD, goal INR 2-3 . INR DONE TODAY BY PCP. Basic Metabolic Panel and hemoglobin: 1 week at followup with [facility] RE[facility]ERRAL CLINIC: [facility] DOCTORS NAME: Dr. [facility] WHEN TO BE SEEN: 1 week REASON FOR APPOINTMENT: Followup blood pressure (off meds), INR/coumadin management, check hemoglobin and electrolytes. PCP APPT. SCHEDULED FOR 04/25/10. Appointments made by hospital staff: DR. BARON 04/27/10 AT [facility] FOR F/U SURGERY. Appointments made today:none needed. INR testing: by outside MD office. Other lab visit scheduled: No Concerns to address at follow up clinic appointment: NEEDS BMP & HGB. PT. TO DISCUSS.WITH PCP IFHE STILL NEEDS TO TAKE IRON PILL. LAST HGB WAS 9.2 ON 04/18/10 AT [facility]. documented in this encounter Plan of Treatment Not on filedocumented as of this encounter Visit Diagnoses Not on filedocumented in this encounter Care Teams Braille Operator Relationship Specialty Start Date End Date Unassigned, Provider PCP - General 11/28/01 05/21/[address] [place] [address] documented as of this encounter
--- OUTSIDE RECORDS SUMMARY | 2022-06-20 02:35 | XMS_ITS | Encounter Summary ---
:1945 [address] [address] Address [address] [place] [address] Care Team Providers Name Role Phone Unassigned, Provider Primary Care Provider Unavailable Encounter Details Date Type Department Care Team Description 04/29/2010 Imaging [facility] [address] [place] [address] Social History Tobacco Use Types Packs/Day Years [...] Associated Diagnosis Comme nts MR THORACIC SPINE STAT 04/29/2010 8:10 PM Resu lts for this W/WO IV CONT CDT procedure are i n the results section. documented in this encounter Results MR THORACIC SPINE WITH/WITHOUT CONTRAST (tell booking clerk and call Radiologist) (04/29/2010 8:10 PM CDT) Anatomical Region Laterality Modality Spine, T-Spine, L-Spine, C-Spine, Skeletal Magnetic Resonance Specimen (Source) Anatomical Collection Method Collection Time Re ceived Time Location / / Volume Laterality 04/29/2010 8:10 PM CDT Narrative 04/29/2010 8:30 PM CDT [facility] THORACIC SPINE MRI ? 04/29/2010 INDICATION: Neck [...] cord. Procedure Note Julien Anna - 04/29/2010 [facility] THORACIC SPINE MRI 04/29/2010 INDICATION: Neck pain [...] thoracic cord. Zelalem Dick MD RAD MRI documented in this encounter Visit Diagnoses Not on filedocumented in this encounter Care Teams Head Of Marketing Adometry Relationship Specialty Start Date End Date Unassigned, Provider PCP - General 11/28/01 05/21/[address] [place] [phone] documented as of this encounter
--- OUTSIDE RECORDS SUMMARY | 2022-06-20 02:35 | XMS_ITS | Encounter Summary ---
:1945 Author Organization [facility] Address [address] [address] Care Team Providers Name Role Phone Unassigned, Provider Primary Care Provider Unavailable Encounter Details Date Type Department Care Team Description 05/01/2010 Invasive Imaging [facility]/Us, Rad iologist Ultrasound [address] [facility] [address] [place] [address] [place] [address] [phone] Social History Tobacco Use Types Packs/Day Years Used Date Smoking Tobacco: Never Alcohol Use Standard Drinks/Week Comments No 0 (1 standard drink = 0.6 oz pure alcoho l) Sex Assigned at Date Recorded Male 08/06/2021 5:59 PM CDT documented as of this encounter Plan of Treatment Not on filedocumented as of this encounter Procedures Procedure Name Priority Date/Time Associated Diagnosis Comme nts US FNA SUPERFICIAL Routine 05/01/2010 2:50 PM Res ults for this CDT procedure are i n the results section. documented in this encounter Results US FNA SUPERFICIAL (05/01/2010 2:50 PM CDT) [...] anesthetic. Using real-time ultrasound guidance, a 19-gauge Yueh needle was advanced into the paraspinal complex [...] anesthetic. Using real-time ultrasound guidance, a 19-gauge Yueh needle was advanced into the paraspinal complex [...] analysis. Mi nor residual fluid post aspiration. Garry SAMSON [place] documented in this encounter Visit Diagnoses Not on filedocumented in this encounter Care Teams Forensic Psychologist Relationship Specialty Start Date End Date Unassigned, Provider PCP - General 11/28/01 05/21/10 [address] [place] [address] documented as of this encounter
--- OUTSIDE RECORDS SUMMARY | 2022-06-20 02:35 | XMS_ITS | Encounter Summary ---
:1945 Author Organization [facility] Address [address] [place] [address] Care Team Providers Name Role Phone Unassigned, Provider Primary Care Provider Unavailable Encounter Details Date Type Department Care Team Description 04/30/2010 Consent for [facility] Radiology, INFORMED CONSENT Procedure/Treatme [address] [place] [address] [place] [address] Social History Tobacco Use Types Packs/Day Years Used Date Smoking Tobacco: Never Alcohol Use Standard Drinks/Week Comments No 0 (1 standard drink = 0.6 oz pure alcoho l) Sex Assigned at Date Recorded Male 08/06/2021 5:59 PM CDT documented as of this encounter Progress Notes [facility] RADIOLOGY, PROVIDER - 05/01/2010 5:06 PM CDT documented in this encounter Plan of Treatment Not on filedocumented as of this encounter Visit Diagnoses Not on filedocumented in this encounter Care Teams Mail Sorting Supervisor Relationship Specialty Start Date End Date Unassigned, Provider PCP - General 11/28/01 05/21/10 [address] [place] [address] documented as of this encounter
--- OUTSIDE RECORDS SUMMARY | 2022-06-20 02:35 | XMS_ITS | Encounter Summary ---
:1945 Author Organization [facility] Address [address] [place] [address] Care Team Providers Name Role Phone Unassigned, Provider Primary Care Provider Unavailable Encounter Details Date Type Department Care Team Description 05/03/2010 Imaging [facility] Ul trasound [address] [place] [address] Social History Tobacco Use Types Packs/Day Years [...] Diagnosis Comme nts US LOWER EXTREMITY Routine 05/03/2010 1:44 PM Res ults for this BILAT VENOUS CDT procedure are i n DOPPLER the results section. documented in this encounter Results US VENOUS DUPLEX LOWER EXTREMITY BILATERAL (05/03/2010 [...] bilateral deep venous thrombos is. Procedure Note Joseph Johnson S - 05/03/2010 ULTRASOUND VENOUS BILATERAL LOWER [...] Improving bilateral deep venous thrombos is. Lucy OAKLEY documented in this encounter Visit Diagnoses Not on filedocumented in this encounter Care Teams Vat Operator Relationship Specialty Start Date End Date Unassigned, Provider PCP - General 11/28/01 05/21/[address] [place] [phone] documented as of this encounter
--- OUTSIDE RECORDS SUMMARY | 2022-06-20 02:35 | XMS_ITS | Encounter Summary ---
:1945 Author Organization [facility] Address [address] [address] Care Team Providers Name Role Phone Unassigned, Provider Primary Care Provider Unavailable Encounter Details Date Type Department Care Team Description 04/21/2010 Therapy External to Physical Therapy, Provider Social History Tobacco Use Types Packs/Day Years Used Date Smoking Tobacco: Never Alcohol Use Standard Drinks/Week Comments No 0 (1 standard drink = 0.6 oz pure alcoho l) Sex Assigned at Date Recorded Male 08/06/2021 5:59 PM CDT documented as of this encounter Progress Notes Interface, In Chrtscr And Scan - 05/04/2010 10:48 AM CDT documented in this encounter Plan of Treatment Not on filedocumented as of this encounter Visit Diagnoses Not on filedocumented in this encounter Care Teams Pool Lifeguard Relationship Specialty Start Date End Date Unassigned, Provider PCP - General 11/28/01 05/21/[address] [place] [address] documented as of this encounter
--- OUTSIDE RECORDS SUMMARY | 2022-06-20 02:35 | XMS_ITS | Encounter Summary ---
:1945 Author Organization [facility] Address [address] [address] Care Team Providers Name Role Phone Unassigned, Provider Primary Care Provider Unavailable Encounter Details Date Type Department Care Team Description 05/01/2010 Consent for [facility] Department RH INFORM ED CONSENT Procedure/Treatment Social History Tobacco Use Types Packs/Day Years Used Date Smoking Tobacco: Never Alcohol Use Standard Drinks/Week Comments No 0 (1 standard drink = 0.6 oz pure alcoho l) Sex Assigned at Date Recorded Male 08/06/2021 5:59 PM CDT documented as of this encounter Progress Notes Interface, In Chrtscr And Scan - 05/15/2010 3:13 AM CDT Interface, In Chrtscr And Scan - 05/05/2010 6:00 PM CDT documented in this encounter Plan of Treatment Not on filedocumented as of this encounter Visit Diagnoses Not on filedocumented in this encounter Care Teams Product Management Manager Relationship Specialty Start Date End Date Unassigned, Provider PCP - General 11/28/01 05/21/[address] [place] [address] documented as of this encounter
--- OUTSIDE RECORDS SUMMARY | 2022-06-20 02:35 | XMS_ITS | Encounter Summary ---
:1945 Author Organization [facility] Address [address], [place] [address] Care Team Providers Name Role Phone Unassigned, Provider Primary Care Provider Unavailable Reason for Visit Reason Comments HEADACHE--ED recent back surgery Encounter Details Date Type Department Care Team Description 05/09/2010 Surgery RH Operating Room Maurice Baron, REPLACEMENT BACLOFEN [address] [place] [address] [address] [phone] [place], [place] [address] (Wo rk) Social History Tobacco Use Types Packs/Day Years Used Date Smoking Tobacco: Never Alcohol Use Standard Drinks/Week Comments No 0 (1 standard drink = 0.6 oz pure alcoho l) Sex Assigned at Date Recorded Male 08/06/2021 5:59 PM CDT documented as of this encounter Last Filed Vital Signs Vital Sign Reading Time Taken Comments Blood Pressure 144/91 05/09/2010 7:31 AM CDT Pulse 88 05/09/2010 7:31 AM CDT Temperature 36.4 ??C (97.6 ??F) 05/09/2010 7:31 AM CDT Respiratory Rate 16 05/09/2010 7:31 AM CDT Oxygen Saturation 98% 05/09/2010 7:31 AM CDT Inhaled Oxygen Concentration - - Weight 114.4 kg (252 lb 4.8 oz) 05/08/2010 5:34 AM CDT Height 177.8 cm (5' 10) 04/30/2010 2:07 AM CDT Body Mass Index 37 05/11/2010 12:36 PM CDT documented in this encounter Discharge Summaries Geetha Osuna 05/13/2010 4:08 PM CDT [facility] Discharge Summary Report (MD) Admit Date/Time: 04/30/2010 1:25 AM Discharge Date: 05/13/10 Service: Neurosurgery Staff MD: Dr. Maurice Baron Admitting Diagnosis: Encounter Diagnoses Code Name Primary? 453.40U DVT (Deep Venous Thrombosis) Yes ??? 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 784.0 Headache ??? 780.60BQ Fever ??? 728.85T Muscle Spasticity ??? 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 36390 CAREPLAN: BACLOFEN ??? 564.81 Neurogenic Bowel ??? [...] 04/24/2010 he was seen at ER in [place] & was treated with IM ceftriaxone & azithromycin for possible pneumonia. He felt slightly better for 2 daysbut then had fever again on 04/28, this time with significant chills & drenching sweats. He was admitted to [facility] on 04/29 for the fever. He also c/o severe headache since 04/28. He also has a baclofen pump in situ. Hospital Course: Mr. Cullen was admitted to [facility] on 04/30/2010. See above hx for details. [...] off his oral Baclofen. Vital signs h noee been stable since surgery. Discharge Disposition: Home with [facility], home PT Diet: Resume pre-op diet. Increase fiber and fluids to avoid constipation. Activity: No lifting greater than 10 pounds. No repetitive bending, twisting. No driving until seen in follow up in the neurosurgery clinic. No tub bathing, no hot tubs, and no swimming for 30 days post-operatively. Keep incision dry. Followup: 05/[address] Maurice Baron [facility] Transfer Orders to Home Health Care [...] drainage, warmth). Call the Neurosurgery Clinic at [phone] with any incisional changes. Keep incision dry. [...] in strength to your extremeties. Neurosurgery clinic [phone]. Diet Order Comments: Resume pre-op diet. Increase fiber and fluids to avoid constipation. Clinic Referral Order Comments: CLINIC: [facility]: Neurosurgery; [phone]; [address] [place] [address] DOCTORS NAME: Dr. Maurice Baron WHEN TO [...] to Home Care Order Comments: AGENCY NAME: [facility] Discharge Medication Orders Current Discharge [...] provider. Geetha Osuna RN Neurosurgery Nurse Clinician [phone] I, Geetha Osuna RN, am serving as [...] from the original note were not included. [address] [place] [address] Discharge Instructions for: Jie Cullen Thank you for choosing [facility] as your hospital. A copy of your [...] additional information about your medications, visit this [employer] [facility] website, [email or web address]. Current Discharge Medication List START taking these [...] drainage, warmth). Call the Neurosurgery Clinic at [phone] with any incisional changes. Keep incision dry. [...] in strength to your extremeties. Neurosurgery clinic [phone]. Diet Resume pre-op diet. Increase fiber and fluids to avoid constipation. Clinic Referral CLINIC: [facility]: Neurosurgery; [phone]; [address] [place] [address] DOCTORS NAME: Dr. Maurice Baron WHEN TO [...] TREAT Admit to Home Care AGENCY NAME: [facility] custodial Care Instructions Patient Teaching Handouts NONE Valuables/Medications [...] wound and fever Community Resources NONE Contact [address] [address] For questions about your discharge instructions call the nursing unit : [facility] [phone] Emergency & Urgently Needed Care: For emergencies call 911 and/or get medical help right away. If you are a [facility] member and have medical needs after clinic hours you may call the CareLineat [phone] or . All medical devices (telemetry/IV/etc) unless otherwise ordered, have been removed before discharge. Smoking and second-hand smoke exposure: Smoking damages blood vessels, reduces the oxygen in your blood and makes your heart beat too fast. If you smoke you should quit. Everyone should avoid second- hand smoke. If you would like further assistance after your discharge, please contact [phone] or visit [email or web address] and [facility] [employer] can offer further [...] weight will also be followed by the [facility] when you go in for your treatment. [...] out. I understand my discharge instructions: Jie Dubon Voegele (or Vibrating Screen Operator) documented in this encounter Medications at Time [...] Dulce Palafox - 05/13/2010 10:02 PM CDT [facility] Discharge Note - Nursing Admission Date/Time: [...] Lázaro Lr - 05/13/2010 8:16 PM CDT [facility]. ID Progress Note Date of service: [...] concerns arise subsequently. Lázaro Lr MD Pager [phone] Beth Lopez - 05/13/2010 4:40 PM CDT [facility] Transfer Orders to Home Health Care [...] drainage, warmth). Call the Neurosurgery Clinic at [phone] with any incisional changes. Keep incision dry. [...] in strength to your extremeties. Neurosurgery clinic [phone]. Diet Order Comments: Resume pre-op diet. Increase fiber and fluids to avoid constipation. Clinic Referral Order Comments: CLINIC: [facility]: Neurosurgery; [phone]; [address] [place] [address] DOCTORS NAME: Dr. Maurice Baron WHEN TO BE SEEN: On (date) 05/22 at 10:40 REASON FOR APPOINTMENT: follow up Lab Tests Order Comments: BASIC [...] to Home Care Order Comments: AGENCY NAME: [facility] Discharge Medication Orders Current Discharge [...] have been electronically signed. (In accordance with [place]. Regulation Set, Fed A0232 - Types of Authentication) Discharging MD: Dr Powell Today's Date: 05/13/10 --- End of Report --- Beth Lopez - 05/13/2010 4:03 PM CDT Brief Weekend Social Work Note Received request to arrange home PT for pt for d/c today. [facility] (ph# [phone], fax [phone]). Left message regarding referral @Greg and requested order from and will have [employer] fax it. No further needs at this time. Beth Lopez BELT CONVEYOR DRIER, [facility] Beeper [phone] Faxed orders to [facility]. Ozzy Dietz RN - 05/13/2010 3:21 PM CDT [facility] Progress Note (Nursing) Identify/Problem(s): Comfort [...] Squires, PT - 05/13/2010 1:54 PM CDT [facility] IP Physical Therapy Progress Note PT Visit Room/Bed: 54701/[id number] Patient Seen: bedside Diagnosis: Encounter Diagnoses Code Name Primary? 453.40U DVT (Deep Venous Thrombosis) Yes ??? 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 784.0 Headache ??? 780.60BQ Fever ??? 728.85T Muscle Spasticity ??? 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 73293 CAREPLAN: BACLOFEN ??? 564.81 Neurogenic Bowel ??? [...] in patient contact: PM: 25 minutes Yen Squires PT Pager: [phone] Department: [id number] --- End of Report --- Kiko Powell S - 05/13/2010 12:42 PM CDT [facility] MEDICINE PROGRESS NOTE DOA: 04/30/2010 1:25 [...] on coumadin. Kiko Powell MD [facility] Hospitalist Pager: [phone] TT spent >35 min and 50% in [...] Bush RN - 05/13/2010 1:56 AM CDT [facility] Progress Note (Nursing) Identify/Problem(s): Pain/comfort/skin integrity [...] Walters RN - 05/12/2010 11:47 PM CDT [facility] Progress Note (Nursing) Identify/Problem(s): GI function [...] Report --- Loretta Walters RN - 05/12/2010 10:53 PM [...] Geetha Osuna - 05/12/2010 2:49 PM CDT [facility] NeuroSurgery Progress Note 05/12/2010 Vitals Temp [...] weekend Geetha Osuna RN Neurosurgery Nurse Clinician [phone] I, Geetha Osuna RN, am serving as [...] Tania Brantley - 05/12/2010 11:27 AM CDT [facility] Care Management Fur Trimming Machine Operator Follow Up Note Admission Date/Time: 04/30/2010 1:25 [...] completed by Tania Brantley RN, Pager Number [phone] --- End of Report --- Mary Ann Dubose - 05/12/2010 10:24 AM CDT [facility] IP Physical Therapy Progress Note PT Visit Room/Bed: 42641/[id number] Patient Seen: bedside Diagnosis: Encounter Diagnoses Code Name Primary? 322.9P Meningitis Yes ??? 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 784.0 Headache ??? 780.60BQ Fever ??? 728.85T Muscle Spasticity ??? 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 41009 CAREPLAN: BACLOFEN ??? 564.81 Neurogenic Bowel ??? [...] patient contact: AM: 45 minutes Mary Ann Dbuose, PT Department number is [phone] Pager number is [phone] --- End of Report --- Kiko Powell - 05/12/2010 9:56 AM CDT HOSPITAL MEDICINE PROGRESS NOTE DOA: [...] coordinate at clinic / local ER - machine adjuster leader case trim aware & involved. Pt underwent REVISION OF [...] urine cultures Kiko Powell MD [facility] Hospitalist Pager: [phone] TT spent >15 min and 50% in CC of above issues which includes review of EPIC including notes/labsand imaging, discussion of care plan with pt and time spent in documentation on the pt's floor today. Dave Sapp PA-C - 05/12/2010 9:23 AM CDT [facility] Progress Note (Nursing) Identify/Problem(s): GI/Activity Desired [...] Patria Wright - 05/12/2010 8:28 AM CDT [facility] Occupational Therapy Brief Contact Note Orders received [...] Patria Wright OTR/L (pager) OT Dept #: [phone] - OT Weekend Pager #: [phone] - [facility] Main #: [phone] --- End of Report --- Merced Snowden RN - 05/12/2010 2:53 AM CDT [facility] Progress Note [...] Walters RN - 05/12/2010 12:36 AM CDT [facility] Progress Note (Nursing) Identify/Problem(s): lethargy Desired Outcome(s): Return to usual level of alertness Evaluation: Patient unable to stay awake. His said he is receiving normal dose of baclofen from his pump. Refused oral doses. Reported moderate headache on right side of restorationist. Area massaged for 10min. Pt fell asleep and slept soundly for 2 hours. Awoke headache free. Plan: Discussed plan of care with patient and family. Check with MD re discontinuing oral baclofen. Also check with MD regarding changing pain med to Vicodin, since percocet causes pt confusion. Loretta Walters RN --- End of Report --- AT Loretta Walters RN - 05/12/2010 12:24 AM CDT Problem: Falls Risk Goal: High Risk (11+): Fall Prevention I applied all active high risk falls prevention interventions. Geetha Osuna - 05/11/2010 3:10 PM CDT [facility] NeuroSurgery Progress Note 05/11/2010 Vitals Temp [...] updated, answered questions Change dressing daily Dc AGRICULTURAL SCIENCE PROFESSOR Will contact PM&R to see if we can back off Baclofen Hgb noted, will monitor for now Up with assist PT/OT Ok to resume full anticoagulation today Appreciate medicine following Antibiotic recs per ID Geetha Osuna RN Neurosurgery Nurse Clinician [phone] I, Geetha Osuna RN, am serving as [...] Garth Rodriguez - 05/11/2010 1:34 PM CDT [facility] Progress Note (Nursing) Identify/Problem(s): Pain, Wound, [...] states Not bad. Pt only using Dilaudid AGRICULTURAL SCIENCE PROFESSOR total for this shift was 0.4mg. Patient [...] plan of care with patient, family and child care associate teacher. Romelia Rodriguez RN --- End of Report --- Garth Rodriguez - 05/11/2010 12:50 PM CDT Problem: Falls Risk Goal: Moderate Risk (5-10): Fall Prevention I applied all active moderate risk falls prevention interventions. Jamie Ralph RD, ALEJA - 05/11/2010 11:36 AM CDT [facility] Nutrition Reassessment and Care Plan CURRENT [...] have questions call Registered Dietitian Beeper at [phone] Weekend pager: [phone] Progress Since Last Assessment Current Nutrition/Diet Order: [...] Tania Brantley - 05/11/2010 10:47 AM CDT [facility] Care Management Fur Trimming Machine Operator Follow Up Note Admission Date/Time: 04/30/2010 1:25 AM Attending MD: Maurice Baron X Date Chart reviewed; discussed with interdisciplinary team and with patient and family. Coordination of Care: Provided patient/family with options for dc planning. Barriers to Discharge: patient continues to require acute medical care Updated Assessment Met with pt's this am. Pt sleeping and did not awake during our conversation. Informed Heather that I discussed with ISMAEL Iniguez nurse yesterday the recs from ID , Dr. Moura for continuance of IV abx [...] I encouraged her to discuss with Dr. Baron when he rounds and I did also [...] completed by Tania Brantley RN, Pager Number [phone] --- End of Report --- Kiko Powell - 05/11/2010 9:31 AM CDT [facility] MEDICINE PROGRESS NOTE DOA: 04/30/2010 1:25 [...] mg in NaCl 0.9 % 50 mL AGRICULTURAL SCIENCE PROFESSOR syringe IV Titrate ??? iron polysaccharide complex [...] coordinate at clinic / local ER - machine adjuster leader case trim aware & involved. Pt underwent REVISION OF [...] cruz changed. Kiko Powell MD [facility] Hospitalist Pager: [phone] TT spent >35 min and 50% in CC of above issues which includes review of EPIC including notes/labsand imaging, discussion of care plan with pt and time spent in documentation on the pt's floor today. Merced Snowden RN - 05/11/2010 5:08 AM CDT [facility] Progress Note (Nursing) Identify/Problem(s): Comfort Desired Outcome(s): Patient will be comfortable Evaluation: Patient alert and oriented during assessment. Lethargic overnight. Turned x3. De La Cruz site CDI. Urine yellow with 1550ml out this shift. Has dilaudid AGRICULTURAL SCIENCE PROFESSOR 0.2 bumps only 15 min lockout, used 0.61mg this shift. Pain is managed well with AGRICULTURAL SCIENCE PROFESSOR per patient. Dressings are CDI. Was able to draw am lab from PICC. VSS, BP 125/72 Pulse 107 Temp(Src) 98 ??F (36.7 ??C) (Oral) Resp 18 Ht 5' 10 (1.778 m) Wt 114.352 kg (252 lb 1.6 oz) SpO2 96%. Neuros and cms intact. Denies nausea. Plan: Continue to monitor comfort Merced Snowden RN --- End of Report --- Ozzy Dietz - 05/10/2010 10:51 PM CDT [facility] Progress Note (Nursing) Identify/Problem(s): Comfort Desired Outcome(s): Pt will be comfortable Evaluation: Pt drowsy most of the day. Denies pain. AGRICULTURAL SCIENCE PROFESSOR dilaudid basal stopped @ 1600, bumps only [...] hours) at 05/10/102157 Last data filed at 05/10/102121 Gross per 24 hour Intake 1635 ml Output 4600 ml Net -2965 ml @[id number]@Last Chem10 results: Lab Results Component Value Date/Time [...] 9.0* 05/06/10 11:00 PM ??? HCT 26.7* 6/26/10 11:00 PM ??? MCV 87.0 05/06/10 11:00 [...] Bernard Alcantar - 05/10/2010 3:35 PM CDT [facility] Progress Note (Nursing) Identify/Problem(s): Pain;nausea Desired Outcome(s): Pt will be comofrtable. Pt will not be nauseated. Evaluation: Pt has been using AGRICULTURAL SCIENCE PROFESSOR for headache. He has been sleepy. Pt was nauseated . Zofran was helpful. Plan: Continue AGRICULTURAL SCIENCE PROFESSOR. Medicate as need for nausea. Bernard Alcantar RN --- End of Report --- Archana Pace - 05/10/2010 11:23 AM CDT [facility] Real Estate Underwriter Department Progress Note 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 Cutter Notes: Initial assessment for spiritual and emotional support needs for pt/family during this hospitalization. Jeff and (Heather) are known to me from previous hospitalization. I met with Jeff and Heather this morning; Jeff is c/o FIELDS after having bath this morning; using AGRICULTURAL SCIENCE PROFESSOR for pain relief. Heatehr is hopeful that the replacement of the [...] flat bedrest anymore. They are aware of bag loader availability. Plan: Real Estate Underwriter will continue following for ongoing spiritual and emotional support to pt/family. Report Completed by: Archana Pace, [facility] Staff 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 Cutter --- End of Report --- Kiko Powell - 05/10/2010 8:34 AM CDT HOSPITAL MEDICINE PROGRESS NOTE DOA: [...] mg in NaCl 0.9 % 50 mL AGRICULTURAL SCIENCE PROFESSOR syringe IV Titrate ??? iron polysaccharide complex [...] coordinate at clinic / local ER - machine adjuster leader case trim aware & involved. Pt underwent REVISION OF [...] cbc, u/a in am Kiko Powell MD [facility] Pager: [phone] TT spent >35 min and 50% in CC of above issues which includes review of EPIC including notes/labsand imaging, discussion of care plan with pt and time spent in documentation on the pt's floor today. Merced Snowden RN - 05/10/2010 3:44 AM CDT [facility] Progress Note (Nursing) Identify/Problem(s): Post op status Comfort Desired Outcome(s): Patient will have stable post op course Patient will be comfortable Evaluation: Patient a/o x4, neuros and cms intact. PERRMIRNA. VSS, BP low @ 0000 98/65, re- check @ 0400 111/68. Reported that pain is adequately managed with AGRICULTURAL SCIENCE PROFESSOR pump at 0.2/0.2/q15m lockout. Per report patient's [...] Ozzy Dietz - 05/09/2010 11:58 PM CDT [facility] Progress Note (Nursing) Identify/Problem(s): Post-op Desired Outcome(s): Stable post-op status Evaluation: Pt alert & oriented x4. POD#0 for Revision of Baclofen Pump Catheter. Rating pain 5-7/10. Dilaudid for pain given. 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 784.0 Headache Yes ??? 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 780.60BQ Fever ??? 728.85T Muscle Spasticity ??? 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 31018 CAREPLAN: BACLOFEN ??? 564.81 Neurogenic Bowel ??? [...] replacement, intrathecal baclofen was removed and replaced [id number] of baclofen. . OBJECTIVE: Patient Vital Signs [...] Bernard Alcantar - 05/09/2010 3:06 PM CDT [facility] Progress Note (Nursing) Identify/Problem(s): Pain Desired Outcome(s): Pt will be comfortable Evaluation: Pt has been off floor since 1100. Prior to leaving did not c/o pain. Plan: Medicate if needed for pain. Bernard Alcantar RN --- End of Report --- Bernard Alcantar - 05/09/2010 3:05 PM CDT [facility] Nursing Pre-Op Note Admission Date/Time: 04/30/2010 [...] Tania Brantley - 05/09/2010 12:37 PM CDT [facility] Care Management Fur Trimming Machine Operator Follow Up Note Admission Date/Time: 04/30/2010 1:25 [...] write orders for IV infusions for the [address] while ptin need of iv [...] completed by Tania Brantley RN, Pager Number [phone] --- End of Report --- Kiko Powell - 05/09/2010 8:56 AM CDT [facility] MEDICINE PROGRESS NOTE Patient: Jie Cullen [...] coordinate at clinic / local ER - machine adjuster leader case trim aware & involved. Today pt underwent REVISION [...] Updated at bedside. Kiko Powell MD Pager: [phone] DOS: 05/09/2010 Filomena Diaz RN - 05/09/2010 4:57 AM CDT [facility] Progress Note (Nursing) Identify/Problem(s): Safety Comfort [...] Diaz RN --- End of Report --- Dulce Palafox - 05/08/2010 9:39 PM CDT [facility] Progress Note (Nursing) Identify/Problem(s): Comfort Desired Outcome(s): Patient will remain comfortable Evaluation: Patient denies headache or other pain. Repositioned in bed for comfort. Patient up to bathroom with assist of 2 and the wheelchair. He had a large soft BM. Ed La Cruz continues to have large output- see flowsheet. Dressing changed, per order, skin around incision is red. Evening Hibiclens bath done. Plan: Continue to monitor comfort Dulce Palafox RN --- End of Report --- Priti Hickey - 05/08/2010 4:11 PM CDT [facility] Progress Note (Nursing) Identify/Problem(s): Skin integrity [...] Poonam Wallace - 05/08/2010 12:00 PM CDT [facility] MEDICINE PROGRESS NOTE Date of Service [...] coordinate at clinic / local ER - machine adjuster leader case trim aware & involved. Polyuria - notes polyuria [...] care. Updated at bedside. Poonam Wallace MD [phone] Geetha Osuna - 05/08/2010 11:15 AM CDT [facility] NeuroSurgery Progress Note 05/08/2010 Vitals Temp [...] tolerated Geetha Osuna RN Neurosurgery Nurse Clinician [phone] I, Geetha Osuna RN, am serving as [...] Tena Jasso - 05/08/2010 5:59 AM CDT [facility] Progress Note (Nursing) Identify/Problem(s): Comfort Desired Outcome(s): Pt will be comfortable Evaluation: Pt is A&O, no c/o pain. Comfortable. Sleeping all night, is at bedside. Plan: Continue to monitor Tena Jasso RN --- End of Report --- Tena Jasso - 05/08/2010 4:59 AM CDT Problem: Falls Risk Goal: Low Risk (0-4): Fall Prevention I applied all active low risk falls prevention interventions. Bernard Alcantar - 2010 11:11 PM CDT [facility] Progress Note (Nursing) Identify/Problem(s): Pain Desired Outcome(s): Pt will be comfortable. Evaluation: Pt c/o headache. Tylenol not effective. He received 2 vicodin with good relief. Plan: Medicate as needed for pain. Bernard Alcantar RN --- End of Report --- Priti Hickey - 2010 5:43 PM CDT [facility] Progress Note (Nursing) Identify/Problem(s): Pain Coping [...] today, Lovenox started. P.O. Baclofen increased by . Jeovany at bedside, sitting up to eat. Transfers [...] Poonam Wallace - 2010 11:53 AM CDT [facility] MEDICINE PROGRESS NOTE Date of Service [...] Glucose Results: Recent Labs Basename 05/06/10 0730 05/05/103 05/05/10 1719 ??? GLWB 108 145 125 UOP [...] care. Updated at bedside. Poonam Wallace MD [phone] Heidy Jassojagdish Salgado - 2010 3:52 AM CDT [facility] Progress Note (Nursing) Identify/Problem(s): Comfort Desired Outcome(s): Pt will be comfortable Evaluation: Pt is A&O, no c/o pain or FIELDS. De La Cruz probably was kinked and was backing up and leaked around. is staying in the room. Pt slept through the whole night. K+ is 3.3 and Hgb 9. Plan: Continue to wanda Jasso RN --- End of Report --- Tena Jasso - 2010 3:43 AM CDT Problem: Falls Risk Goal: Moderate Risk (5-10): Fall Prevention I applied all active moderate risk falls prevention interventions. Tena Jasso - 05/06/2010 10:15 PM CDT Problem: Falls Risk Goal: Moderate Risk (5-10): Fall Prevention I applied all active moderate risk falls prevention interventions. Priti Hickey - 05/06/2010 7:11 PM CDT Problem: Falls Risk Goal: Moderate Risk (5-10): Fall Prevention I applied all active moderate risk falls prevention interventions. Priti Hickey - 05/06/2010 5:57 PM CDT [facility] Progress Note (Nursing) Identify/Problem(s): Skin integrity [...] Cruz. asked for electrolytes to be checked, MD called and labs ordered for the morning. BP 135/93 Pulse 92 Temp(Src) 97.8 ??F (36.6 ??C) (Oral) Resp 16 Ht 5' 10 (1.778 m) Wt 115.758 kg (255 lb 3.2 oz) SpO2 97% Plan: Continue plan of care. Priti Hickey RN --- End of Report --- Poonam Wallace - 05/06/2010 12:12 PM CDT [facility] MEDICINE PROGRESS NOTE Date of Service [...] care. Updated at bedside. Poonam Wallace MD [phone] Priti Hickey - 05/06/2010 11:02 AM CDT [facility] Progress Note (Nursing) Identify/Problem(s): Comfort Desired [...] Markos Ford - 05/06/2010 2:14 AM CDT [facility] Progress Note (Nursing) Identify/Problem(s): Comfort Pain Desired Outcome(s): pt will have adequate pain relief. Evaluation: pt is lert denies pain c/o FIELDS and medicated with tylenol fred fatigue dizzyness.n good family support. Dorothy is patent with yellow color urine PICC the R a/c. 2 + edema at the lower ext with good family support. Afebrile. current hgb is 8,;6. Plan: Will monitor the pt. Markos Ford --- End of Report --- Carolina Baca - 05/05/2010 8:25 PM CDT [facility] Progress Note (Nursing) Identify/Problem(s): pain Wound [...] not getting bigger as well ; pt rcvd sched vanco, ptafebrile Plan: Cont with wound cares ; manage headache ; Discussed plan of care with patient and family. Carolina Baca RN --- End of Report --- Elise Briseno - 05/05/2010 6:37 PM CDT [facility] Progress Note (Nursing) [phone] Identify/Problem(s): Wound healing Desired Outcome(s): Will have [...] Martha Thomas - 05/05/2010 4:43 PM CDT [facility] PM&R Progress Note () Date of [...] 94 117/55 mmHg 18 97 % RA 05/04/10 2130 - - 98.3 ??F (36.8 ??C) Oral [...] valium if needed. 3. Please call PMR transition coach MD if questions over the weekend. Thank you. Martha South MD Total time: 25minnseling and Coordination time: 20min --- End of Report --- Poonam Wallace - 05/05/2010 11:27 AM CDT [facility] MEDICINE PROGRESS NOTE Date of Service [...] & sister at bedside. Poonam Wallace MD [phone] Britni Huerta - 05/05/2010 10:31 AM CDT [facility] Clinical Pharmacy Follow Up Kinetics Note Assessment: Jie Cullen, [id number], is a 64 yr year old male receiving Vancomycin 2g iv q12h and cefepime 2g iv q12h for meningitis Recent Labs Basename 05/05/10 0615 ??? VANCO 17.1* Recommendations: No changes to current vanco regimen since above level is within goal 15-20 mg/L. Will recheck level in 5-7days. Will follow. Britni Huerta PharmD Pager Number [phone] --- End of Report --- Brittny Jasso - 05/05/2010 10:07 AM CDT [facility] NeuroSurgery Spine Progress Note Date: 05/05/2010 [...] by Dr. Maurice Baron. 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 Pt's primary MD is out of office until May 10 and his clinic has a different transition coach physician everyday, so that makes it tough [...] completed by Tania Brantley RN, Pager Number [phone] --- End of Report --- Brittny Jasso - 05/04/2010 10:15 AM CDT [facility] NeuroSurgery Spine Progress Note Date: 05/04/2010 [...] as tolerated. Please call with any questions. IBrittny RN, am serving as a scribe to document services personally performed by Dr. Maurice Baron. All data has been reviewed by Dr. Maurice Baron. Brittny Jasso RN, ACNS-, CNRN Neuroscience Clinical Nurse Specialist [phone] --- End of Report --- Maurice Baron [...] Mónica Saldana - 05/04/2010 6:27 AM CDT [facility] Progress Note (Nursing) Identify/Problem(s): Headache Desired [...] Maradiaga RN - 05/03/2010 10:26 PM CDT [facility] Progress Note (Nursing) Identify/Problem(s): Headache Desired [...] Mckayla Hernandez - 05/03/2010 6:30 PM CDT [facility] Clinical Pharmacy Follow Up Kinetics Note Assessment: Jie Cullen, [id number], is a 64 yr year old male receiving vanco 1750mg IV q12h and [id number] IV q12h for meningitis. Recent Labs Basename 05/03/10 1745 ??? VANCO 13.0* Desired trough 15-20 mcg/ml Recommendations: The trough level is below the goal range. Will increase vanco to 2g IV q12h and recheck on Sat, 05/05. Mckayla Hernandez Pager Number [phone] --- End of Report --- Keith, Lucy Clemente - 05/03/2010 4:02 PM CDT [facility] NeuroSurgery Progress Note Pt has been [...] Parker PA-C --- End of Report --- Tania Brantley - 05/03/2010 3:27 PM CDT [facility] Care Management Fur Trimming Machine Operator Initial Assessment Admission Date/Time: 04/30/2010 1:25 AM Attending MD: Maurice Baron Data Jie Cullen was referred to this Fur Trimming Machine Operator for discharge planning. Chart reviewed, discussed with interdisciplinary team, as well as with patient and family. Jie Cullen was admittedto S10 for Headache [784.0] (HEADACHE). Insurance: Payor: MEDICARE PART B ONLY [id number] Plan: MEDICARE PART B ONLY Product Type: Medicare Current Living Situation: Patient lives with their spouse. Support System: and family Services Involved: none Additional Data: Pt's primary MD is Dr. Loretta Mcmahan at the [facility] Coordination of Care and Referrals: Provided patient/family with options for dc planning. Barriers to Discharge: patient continues to require acute medical care Assessment Pt is known to me from his previous admission. He lives with his in a single level home withoutsteps. Pt is wheelchair bound. He has a manual wc as well as a motorized wc. Pt has assist from [facility] sliding board for transfers. He also has [...] could go into the ER at the [address] in [place] . I did speak with warehouse logistics manager in the ED at hospital who tells me it is possible to provide this service for pt, monicay would need the orders to come from pt's primary MD. I called pt's clinic this afternoon and los pt's primary MD is out of the office until May 10, that I would need to speak with the transition coach MD. The transition coach MD changes everyday, therefore I did not [...] completed by Tania Brantley RN, Pager Number [phone] --- End of Report --- Olimpia James RN - 05/03/2010 3:08 PM CDT [facility] Progress Note (Nursing) Identify/Problem(s): Comfort [...] with Neurosurgical team Zina Garcia MD 05/03/2010 AT Merced Snowden RN - 05/03/2010 4:59 AM CDT [facility] Progress Note (Nursing) Identify/Problem(s): Pain, Comfort [...] Busby RN - 05/02/2010 9:59 PM CDT [facility] Progress Note (Nursing) Identify/Problem(s): Comfort and [...] Martha Thomas - 05/02/2010 3:34 PM CDT [facility] PM&R Progress Note () Date of [...] 2.5 05/01/10 6:15 AM ??? SODIUM 135 04/30/10 6:19 [...] James RN - 05/02/2010 12:16 PM CDT [facility] Progress Note (Nursing) Identify/Problem(s): Comfort, skin [...] Lucy Parker - 05/02/2010 10:58 AM CDT [facility] NeuroSurgery Progress Note Pt doing well, [...] at home vs TCU depending on insurance forestry worker will look into discharge planning, home [...] panel. Zina Garcia MD 05/02/2010 Olimpia James, VALERIE - 05/02/2010 9:53 AM CDT Problem: Falls Risk Goal: Moderate Risk (5-10): Fall Prevention I applied all active moderate risk falls prevention interventions. Linda Powell, PharmD - 05/02/2010 8:15 AM CDT [facility] Clinical Pharmacy Follow Up Kinetics Note Assessment: Jie Cullen, [id number], is a 64 yr year old male receiving Vancomycin 1500mg iv q12h for possible FUEL OPERATOR infection. Recent Labs Basename 05/01/10 1940 ??? VANCO 11.1* ??? GENT -- ??? TOBR -- ??? AMKC1 -- Desired level(s) are: trough 15-20 mcg/ml Recommendations: As level below desired range, will increase regimen to 1250mg iv q8h and follow. Will recheck a trough level in next few days if remains on vanco. Linda Powell Pager Number [phone] Later- Spoke with Dr Garcia of [place]. Patient needs to be on a q12h regimen for discharge, so will change vanco to 1750mg iv q12h starting this afternoon. Will follow and check a trough level if patient remainsin the hospital in next few days. Linda Powell, Jony --- End of Report --- Merced Snowden RN - 05/02/2010 4:42 AM CDT [facility] Progress Note (Nursing) Identify/Problem(s): Comfort, Skin [...] to monitor pain and skin integrity Merced Snowden RN --- End of Report --- Reina Dhaliwal RN - 05/01/2010 10:59 PM CDT [facility] Progress Note (Nursing) Identify/Problem(s): Transfer Desired [...] Ankita France - 05/01/2010 4:26 PM CDT [facility] Progress Note (Nursing) Identify/Problem(s): Pain Desired [...] prn flexeril and baclofen, PM & R increased dose of baclofen (now at home/regular dose). Family at bedside. Turned/repositioned q2H. FNA of thoracic fluid collection completed. Given miralax and scheduled suppository as part of bowel regimen. Plan to transfer patient to [facility]. Plan: Continue to assess and monitor. Transfer to S10. Ankita France RN --- End of Report --- Ankita France - 05/01/2010 4:20 PM CDT Problem: Falls Risk Goal: Moderate Risk (5-10): Fall Prevention I applied all active moderate risk falls prevention interventions. Martha Thomas - 05/01/2010 10:47 AM CDT [facility] PM&R Consult Note ()/f/up Date of service: 05/01/2010 Diagnosis: Encounter Diagnoses Code Name Primary? 322.9P Meningitis ??? 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 784.0 Headache ??? 780.60BQ Fever ??? 728.85T Muscle Spasticity YES ??? 191.9DC Ependymoma I was asked by to evaluate Jie Jagdish Cullen for adjustment of baclofen pump. 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 Patient readmitted to [facility] on 04/30 due to fever,chills, neck pain [...] 99 82/41 mmHg 13 93 % - 04/30/101999 - - 98.8 ??F (37.1 ??C) Oral [...] REQUESTS Unspecified - ??? AEROBIC CULT NUMBER [id number] - ??? CULTURE Preliminary Culture Negative;Reincubate - [...] 1.9 1.6-2.3 (mg/dl) PHOSPHORUS Component ValueRange???PHOSPHORUS3.6 2.5-4.5 (mg/dl)INR/PROTIMEComponentValueRange???QFTKJCN24.5 (*)12.0-14.5 (sec)???INR2.5 - HEMOGRAM/PLTSComponentValueRange???WBC6.8 4.0-11.0 (k/ul)???RBC2.89 (*)4.5-5.9 (M/ul)???HGB8.6 (*)13.5-17.5 (g/dl)???HCT25.6 (*)41.0-53.0 (%)???MCV88.7 80-100 (fl)???MCH29.9 26-34 (pg)???MCHC33.7 32-36 (g/dl)???RDW15.1 (*)11.5-14.5 (%)???GGFM563 150-450 (k/ul)???MPV8.1 6.5-10.0 (fl) PROCEDURE NOTE: (resident was assisting with the programming of the pump under direct supervision) Pump interrogated: 05/01/2010 Current settings: Baclofen Concentration 1,000mcg/ml on simple continuous mode at a dose of 199.9 mcg/day. Pump updated settings: Baclofen concentration 1,000 mcg/ml on simple continuous mode increased to 249.8 mcg/day. Alarm date: 09/21/2010 [place] volume: 37.3ml ASSESSMENT 64 y/o male with [...] Loree Allen - 05/01/2010 9:22 AM CDT [facility]. Infection Control Practitioner Note Issue Isolation status for meningitis Action Per Dr. Llamas (ID service0 note dated 03.30.10, patient's droplet precautions could have been discontinued at 1700 yesterday. Droplet order still in place. Patient has received 24 hours of appropriate antibiotics per ID. Will discontinue droplet precautions. Comments Will update staff during rounds. Please call infection prevention and control ext. [phone] with any additional isolation questions. Loree Allen RN, Door Furring Installer --- End of Report --- Paz Choudhary - 05/01/2010 4:59 AM CDT [facility] Progress Note (Nursing) Identify/Problem(s): Hypotension Desired [...] Paulina Ibrahim - 04/30/2010 11:30 PM CDT [facility] Progress Note (Nursing) Identify/Problem(s): Headache Desired [...] Ann Sullivan - 04/30/2010 3:39 PM CDT [facility] Progress Note (Nursing) Identify/Problem(s): Headache Post [...] Cristine Henson - 04/30/2010 2:29 PM CDT [facility] PM&R Progress Note () Date of [...] 100 134/81 mmHg 19 99 % O2 04/29/10 233 - - - - - 109/63 mmHg [...] - 124/50 mmHg - - - 04/29/10 181 - - - - - 182/83 mmHg - 95 % - 04/29/10 1800 - - - - - 175/96 mmHg - 98 % - 04/29/10 174 - - - - - 177/95 mmHg [...] 80-100 (fl)???MCH30.1 26-34 (pg)???MCHC34.6 32-36 (g/dl)???RDW14.3 11.5-14.5 (%)???JMXA066 150-450 (k/ul)???MPV7.1 6.5-10.0 (fl)???PMN/BAND80 (*)43-72 (%)???LYMPH13 (*)17-43 (%)???MONO7 4-12 (%)???EOS0 0-8 (%)???BASO0 0-1 (%)???PMN ABSOLUTE7.1 1.8-7.7 (k/ul)???LYMPH ABSOLUTE1.1 1.0-4.8 (k/ul)???MONO ABSOLUTE0.6 0.1-0.7 (k/ul)???EOS ABSOLUTE0.0 0.0-0.5 (k/ul)???BASO ABSOLUTE0.0 0.0-0.2 (k/ul)BASIC METABOLIC PANELComponentValueRange???BUN10 7-20 (mg/dl)???PGZFAY053 135-145 (mmol/L)???POTASSIUM4.3 3.5-5.1 (mmol/L)???JENAORBE521 98-107 (mmol/L)???CO228 22-30 (mmol/L)???XRPYANV203 70-180 (mg/dl)? ?CREATININE0.71 0.66-1.25 (mg/dl)? ?GFR, ESTIMATED>60.00 [...] any questions re: tone management. Please page [phone] with any questions or concerns re: ITB pump or tone management tonight. will be available tomorrow at [phone]. Total time: 25. Counseling and Coordination time: [...] Alyce Arguelles - 04/30/2010 7:54 AM CDT [facility] Clinical Pharmacy Initial Kinetics Note Assessment: Jie Cullen, [id number], is a 64 year old male started on Meropenem 2 gm IV q8h and Vancomycin 1 gm IV q12h for possible meningitis. Data: Last Height: 5' 10 (177.8 cm) Last Wt - Scale: 257 lb 0.9 oz (116.6 kg) [place] Body Weight: 73 kg Dosing Weight: 90 [...] this matter. Thanks. Alyce Arguelles Pager Number: [phone] --- End of Report --- Aidee Villarreal - 04/30/2010 3:09 AM CDT [facility] Progress Note (Nursing) Identify/Problem(s): Headache Desired [...] Villarreal RN --- End of Report --- Aidee Villarreal - 04/30/2010 2:50 AM CDT Problem: Falls Risk Goal: High Risk (11+): Fall Prevention I applied all active high risk falls prevention interventions. Aidee Villarreal RN Jaden Tavarez - 04/29/2010 10:29 PM CDT [facility] Clinical Pharmacy Medication Reconciliation Note [...] condition. PHARMACIST NAME: Jaden Tavarez Phone/Pager #: [phone] --- End of Report --- Cristine Henson - 04/29/2010 8:13 PM CDT [facility] PM&R Progress Note () Date [...] 1 g IV Now Subjective: Called by glass technician/installer to re-start pump following MRI. Mr. Cullen [...] in 2006, followed by Dr. Hooper at [facility] for management.Last hospitalization dose was increased [...] S/p arthroscopic knee procedure SHx: [place] , doesn't smoke, no EtOH. [...] interogated: SynchroMed IIB 8637-40 40mL Serial number [id number] Catheter: two- piece, Total Catheter Volume 0.222 [...] to risk of ITB pump infection if FUEL OPERATOR is infected. Discussed possible need for explant if infected. They are agreeable with side-port access for CSF sample. Will begin decreasing ITB dose in anticipation of possible explant; we can increase the dose later if pump is not explanted. -Called [employer] support to verify catheter information. They do [...] not locate a side-port access kit in [facility]'s materials room or IV pharmacy; one was located at [place] [facility] and brought to the ER. PROCEDURE NOTE: [...] 225 mcg/day simple continuous. Dose verified on lead programmer analyst by the patient. Alarm date of 10/07/2010 noted. If primary team needs a CSF sample, may consider an image-guided access of the side-access port (ultrasound or CT) vs a traditional LP. Please page me at [phone] prior to procedure as there is a specific kit needed and specific techniques and reprogramming needed to minimize risk of intrathecal baclofen overdose or withdrawal. Discussed with ER team. Will follow-up on patient in the morning, please page me at [phone] with any questions or concerns prior to that. Total time: 80. Counseling and Coordination time: 50. Cristine Henson MD --- End of Report --- documented in this encounter Procedure Notes Baron Maurice X - 06/26/2010 11:07 AM CDT DATE OF SURGERY: 05/09/2010 STAFF SURGEON: Maurice Baron MD DISASTER RECOVERY SPECIALIST: Lucy Parker, PA ANESTHESIA: General. PREOPERATIVE DIAGNOSES: 1. Status post [...] up, extubated, and taken stable to the [facility]. The procedure was well tolerated with no apparent complications. Needle and sponge counts correct and verifiedat the end of the case. EBL was less than 5 mL. MD hailey David Dictated: 06/26/2010 11:07:23 Transcribed: 06/26/2010 15:10:40 Doc #: [id number] cc: 1 Page 2 Patient Name: JIE CULLEN INPATIENT OPERATIVE REPORT CONFIDENTIAL MEDICAL RECORD [address] [address] Page 1 Patient: JIE CULLEN Location: [facility] HPN: [id number] Admit Date: 04/30/2010 Date of : 1945 Discharge Date: 05/13/2010 Age: 65Y INPATIENT OPERATIVE REPORT Lucy Parker - 05/09/2010 1:48 PM CDT [facility] Brief Operative Progress Note Surgery Date: [...] Replaced catheter tubing Plan: Transfer back to [address] [place] [address] x 24 hours Continue with IV abx [...] The procedure was medically necessary for an seed laboratory assistant because Dr. Baron needed the operative exposure and assistance that I provided. This allowed him to safely and efficiently operate. It was also important that I help ligate blood vessels to maintain hemostasis and reduce the bleeding risk. The assistance that I provided reduced operative time which meant less general anesthetic for the patient. Lucy Parker PA-C --- End of Report --- [facility] ANESTHESIA, PROVIDER - 05/09/2010 12:00 AM CDT [facility] ANESTHESIA, PROVIDER - 05/09/2010 12:00 AM CDT [facility] ANESTHESIA, PROVIDER - 05/09/2010 12:00 AM CDT [facility] ANESTHESIA, PROVIDER - 05/09/2010 12:00 AM CDT [facility], PROVIDER - 05/09/2010 12:00 AM CDTAssociated Order(s): EKG IP; EKG IP Birgit Melton - 05/01/2010 3:06 PM CDT [facility] Radiology Drainage Note Procedure: Ultrasound guided [...] Jennyfer Ramírez - 05/01/2010 1:09 PM CDT [facility] PICC Line Insertion Procedure Note Singe Lumen PICC Site One Date of Service: 05/01/10 UNIVERSAL PROTOCOL: Procedure Location: Condition: Elective Consent: Imformed Written Patient Identification: Verified Time Out: Performed Site Prep: Chloraprep Protective Barriers: Maximum Barriers Used including Handwashing, Sterile Gown, Gloves, Mask, Eye Protection & Cap PROCEDURE: Insert/Remove: Inserted Inserted By?: PICC Services Indication: Antibiotics Cmo: Power PICC Size (Nigerian): 5 Length (cm): 47 CM Lot #: [id number] Location: Right or Left: Right Site: Basilic Dressing: Tegaderm w/antimicrobial patch Ultrasound guidance used for access. Jennyfer Ramírez --- End of Report --- DAVID PROVIDER - 04/30/2010 12:00 AM CDTAssociated Order(s): EKG [...] fevers and headaches. He was admitted to [facility] on 04/29 for fever and was found [...] patient is and lives with his in [place]. REVIEW OF SYSTEMS: Positive for decreased ability [...] and needs further eval. Jayna Ambriz MD [facility] Dictated: 05/08/2010 17:54:52 Transcribed: 05/08/2010 19:39:57 Doc #: [id number] cc:Maurice Baron MD 1 Page 3 Patient Name: JIE CULLEN CONSULTATION CONFIDENTIAL MEDICAL RECORD [address] [id number] Page 1 Patient: JIE CULLEN Location: [facility] HPN: [id number] Admit Date: 04/30/2010 Date of : 1945 Discharge Date: Age: 65Y CONSULTATION Zelalem Cohen - 2010 10:03 AM CDT [facility] PM&R Consult Note () S: Pt [...] PM CDTAssociated Order(s): MEDICINE INPT CONSULT [facility] Medicine Consult Patient Name: Jie Cullen. . [...] 04/24/2010 he was seen at ER in [place] &was treated with IM ceftriaxone & azithromycin for possible pneumonia. He felt slightly better for 2 days but then had fever again on 04/28, this time with significant chills & drenching sweats.He was admitted to [facility] on 04/29 for the fever. He also [...] rare coag negstaph. Blood cultures on admission, 04/29/10, is negative. On 05/01/10, He underwent drainage [...] 2000 S/p resection by Dr. Glasgow at [facility] in 05/2000. However resection was incomplete due [...] 1 at baseline. Lives with his in [place]. . Physical Examination: Vital Signs: Patient Vitals [...] please call with Questions. Poonam Wallace MD [phone] 05/04/2010 Jessica Garcia - 05/01/2010 11:15 AM CDTAssociated Order(s): WOUND/SUPERVISOR COOPERAGE SHOP CONSULT Wound/ecommerce project manager Consult Note Was consulted by nursing to provide wound care recommendations to surgical site; will defer to the patient's primary team Neurosurgery to provide orders; spoke with RN who will contact NS to place orders. Please contact the wound care service with any further questions or concerns. [phone]. Jessica Breen MSN, RN, ANP, CWOCN [phone] pager [phone] office Radames Llamas - 04/30/2010 2:32 PM [...] knee procedure Social history He lives in [place] with his . They have a dog [...] 0207 - - - - - - (1.778 m) 116.6 kg (257 lb 0.9 [...] - - 97 % - - 04/29/10 2145 128/78 mmHg - - - - 98 % - - 04/29/10 2130 132/71 mmHg - - - - 96 % - - 04/29/10 2115 120/66 mmHg - - - - 96 % - - 04/29/10 2100 144/80 mmHg - - - - 98 % - - 04/29/105 122/62 mmHg - - - - 97 % - - 04/29/102031 124/50 mmHg - - - - - [...] - 04/30/2010 2:27 PM CDTAssociated Order(s): PM&R MD INPT CONSULT Asked by Dr. Rowell to evaluate patient for side-port access for CSF sample. See progress note dated 04/30/2010 at 01:03 for remainder of consult note. documented in this encounter OR Notes H&P - Maurice Baron X - 04/29/2010 4:55 PM CDT Neurosurgery History and Physical () Chief Complaint: Chief Complaint Patient presents with ??? HEADACHE--ED recent back surgery HPI: This is a 64 yr male admitted to [facility] on 04/29/2010 3:00 PM with No diagnosis [...] success Awaiting further orders anddisposition Manfred Blair - 04/29/2010 10:18 PM CDT DATE OF [...] was signed out at approximately 10:30 p.m. Manfred Blair MD mmj Dictated: 04/29/2010 22:18:42 Transcribed: 04/29/2010 23:14:32 Doc #: [id number] cc: 1 Page 1 Patient Name: JIE CULLEN Visit Date: 04/29/2010 EMERGENCY MEDICINE NOTE CONFIDENTIAL MEDICAL RECORD [address] [id number] Page 1 Patient: [facility]IE [facility]ULL[id number] Date of : 1945 Age: 64Y Visit Date: 04/29/2010 EMERGENCY MEDICINE NOTE Alia Negron - 04/29/2010 9:58 PM CDT [facility] Clothing List Patient Name: Jie Cullen Today's [...] of person taking item home: Signature ___ Alia Ruben Negron, ERT Signature ___ (Receiving Nursing Unit) I have received all of my belongings at discharge: Patient Signature: Date: Staff Signature: Date: --- End of Report --- Alia Negron - 04/29/2010 9:58 PM CDT [facility] Patient's Valuables At Admission Patient Name: Jie [...] Jewelry: Kept with Patient Watch Watch: No [place] #: 0 Items Belonging to Other People Items Belonging to Other People: No No items were sent to the English Lecturer's Office. Any unclaimed personal items deposited into the custody of the hospital will be disposed of by the hospital if they are not claimed within 180 days of discharge. Patients' Signature Witness Reinforcing Steel Erector Vibrating Screen Operator's Signature Witness (Print this note to be [...] Zelalem Dick - 04/29/2010 4:35 PM CDT [facility] Emergency Department Attending Supervision Note I [...] strength equal BLE, sensation intact bilateral UEs, relay adjuster II-XII grossly intact Assessment: 64 yo male here with fever, FIELDS, neck pain concerning for meningitis vs. Postop abscess/infection Plan: Re-check Vitals Imaging: MR Scan(s): MRI thoracic Laboratory: CBC, Chem 8 and CSF for gram stain and culture, cell count and diff, protein, glucose, AFB Consultation: Neurosurgery and rehab medicine IV Fluid Analgesics Medication: dilaudid, valium, ceftriaxone, vancomycin, metronidazole Motor Vehicle Lecturer patient/family Re-evaluate patient Check response to treatment Planned Disposition: inpatient admission Antibiotics including ceftriaxone, vancomycin, and metronidazole were started immediately to cover for meningitis and epidural abscess and pt was put on droplet precautions. Labs show WBC 11.3, Hgb 10.4, otherwise unremarkable. MRI thoracic spine shows a large [id number] cm pseudomeningocoele with direct communication to the overlying area that was operated on to the thecal sac. Case discussed with neurosurgery and rehab for the baclofen pump. Rehab will draw the CSF of the baclofen pump. CSF studies pending but abx already started. Neurosurgery will admit the patient. General radiology studies were reviewed by me. Author: Zelalem Dick MD Manfred Blair Eren - 04/29/2010 3:54 PM CDT [facility] Emergency Department Visit Note Chief Complaint: HEADACHE--ED Hx of thoracic ependymoma S/P resection in [id number] and radiation therapy s/p cyber knife s/p [...] grossly without deficit. Medical Decision Making: Dictation: [id number] Condition on disposition: Stable Manfred Blair MD [...] t-5) on April 11. Was seen in [place] last pm and had CT, IV's and [...] are i n the results section. CYTOLOGY, NON-DENTAL SERVICE TECHNICIAN Routine 05/09/2010 1:00 PM Resu lts for [...] HOLD (BLUE TUBE) (05/13/2010 6:40 AM CDT) P athologist Signature Coag Hold Held in [facility] Coag Rack for 8 hours Specimen Anatomical Collection Method Collection Time Receive d Time (Source) Location / / Volume Laterality 05/13/2010 6:40 AM 0 7:05 CDT AM CDT Maurice Baron MD LAB_1 Performing Organization Address City/State/ZIP Code Phon e Number [address] [address] [place], [place] [phone] (ABNORMAL) INR/PROTIME (05/13/2010 6:40 AM CDT) athologist Signature Protime 17.0 (H) 12.0 - 14.5 REGIONS sec INR 1.4 REGIONS Specimen Anatomical Collection Method Collection Time Receive d Time (Source) Location / / Volume Laterality 05/13/2010 6:40 AM 0 7:05 CDT AM CDT Maurice Baron MD LAB_1 Performing Organization Address City/State/ZIP [facility] Phon e Number [address] [address] [place], [place] [phone] GLUCOSE, WHOLE BLOOD POC (05/12/2010 9:26 PM CDT) athologist Signature Glucose, Whole 138 70 - 180 REGIONS Blood mg/dl Comment: Point of Care Testing RN Notified Specimen Anatomical Collection Method Collection Time Receive d Time (Source) Location / / Volume Laterality 05/12/2010 9:26 PM 0 9:32 CDT PM CDT Maurice Baron MD LAB_1 Performing Organization Address City/[facility] Code Phon e Number [address] [address] [place], [place] [phone] GLUCOSE, WHOLE BLOOD POC (05/12/2010 5:32 PM CDT) athologist Signature Glucose, Whole 142 70 - 180 REGIONS Blood mg/dl Comment: Point of Care Testing RN Notified Specimen Anatomical Collection Method Collection Time Receive d Time (Source) Location / / Volume Laterality 05/12/2010 5:32 PM 0 5:38 CDT PM CDT Maurice Baron MD LAB_1 Performing Organization Address City/[facility]/ZIP [facility] Phon e Number [address] [address] [place], [place] [phone] GLUCOSE, WHOLE BLOOD POC (05/12/2010 12:16 PM CDT) P athologist Signature Glucose, Whole 101 70 - 180 REGIONS Blood mg/dl Comment: Point of Care Testing RN Notified Specimen Anatomical Collection Method Collection Time Receive d Time (Source) Location / / Volume Laterality 05/12/2010 12:16 05/12/2010 PM CDT 12:34 PM CDT Maurice Baron MD LAB_1 Performing Organization Address [facility] Phon e Number [address] [address] [place], [place] [phone] GLUCOSE, WHOLE BLOOD POC (05/12/2010 8:17 AM CDT) P athologist Signature Glucose, Whole 129 70 - 180 REGIONS Blood mg/dl Comment: Point of Care Testing RN Notified Specimen Anatomical Collection Method Collection Time Receive d Time (Source) Location / / Volume Laterality 05/12/2010 8:17 AM 0 CDT 11:58 AM CDT Maurice Baron MD LAB_1 Performing Organization Address City/[facility]/ZIP Code Phon e Number [address] [address] [place], [place] [phone] GLUCOSE, WHOLE BLOOD POC (05/11/2010 6:53 PM CDT) P athologist Signature Glucose, Whole 119 70 - 180 REGIONS Blood mg/dl Comment: Point of Care Testing RN Notified Specimen Anatomical Collection Method Collection Time Receive d Time (Source) Location / / Volume Laterality 05/11/2010 6:53 PM 0 6:56 CDT PM CDT Maurice Baron MD LAB_1 Performing Organization Address City/[facility] Phon e Number [address] [address] [place], [place] [phone] GLUCOSE, WHOLE BLOOD POC (05/11/2010 12:03 PM CDT) P athologist Signature Glucose, Whole 133 70 - 180 REGIONS Blood mg/dl Comment: Point of Care Testing RN Notified Specimen Anatomical Collection Method Collection Time Receive d Time (Source) Location / / Volume Laterality 05/11/2010 12:03 05/11/2010 2:02 PM CDT PM CDT Maurice Baron MD LAB_1 Performing Organization Address [facility] Phon e Number [address] [address] [place], [place] [phone] URINE CULTURE (05/11/2010 10:44 AM CDT) [facility] Method Time Signature Specimen Urine REGIONS Description Special Unspecified REGIONS Requests Culture No Growth After REGIONS 1 Day Report Status Final REGIONS 05/12/2010 Specimen Anatomical Collection Method Collection Time Receive d Time (Source) Location / / Volume Laterality 05/11/2010 10:44 05/11/2010 1:09 AM CDT PM CDT Maurice Baron MD LAB_1 Performing Organization Address [facility] Phon e Number [address] [address] [place], [place] [phone] (ABNORMAL) UA CONDITIONAL UC (05/11/2010 10:44 AM CDT) [facility] Method Time Signature Urine Color None REGIONS Urine Clarity Clear REGIONS Specific 1.004 (L) 1.005 - REGIONS Aptos,Ur 1.03 pH, Urine 6.0 4.5 - 8.0 [...] / Volume Laterality Urine specimen 05/11/2010 10:44 201 0 (specimen) AM CDT 11:01 AM CDT Kiko Powell MD LAB_1 Performing Organization Address [facility] Phon e Number [address] [address] [place], [place] [phone] GLUCOSE, WHOLE BLOOD POC (05/11/2010 8:09 AM CDT) P athologist Signature Glucose, Whole 111 70 - 180 REGIONS Blood mg/dl Comment: Point of Care Testing RN Notified Specimen Anatomical Collection Method Collection Time Receive d Time (Source) Location / / Volume Laterality 05/11/2010 8:09 AM 0 2:01 CDT PM CDT Maurice Baron MD LAB_1 Performing Organization Address City/State/ZIP Code Phon e Number [address] [address] [place], [place] [phone] (ABNORMAL) HEMOGRAM/PLTS/DIFF (05/11/2010 6:00 AM CDT) Analysis [...] Lymph 20 17 - 43 % REGIONS Greene 8 4 - 12 % REGIONS Eos 1 0 - 8 % REGIONS Baso 0 0 - 1 % REGIONS Neutrophil 4.7 1.8 - 7.7 REGIONS Absolute k/ul Lymph Absolute 1.3 1.0 - 4.8 REGIONS k/ul Greene Absolute 0.5 0.1 - 0.7 REGIONS k/ul Eos Absolute 0.1 0.0 - 0.5 REGIONS k/ul Baso Absolute 0.0 0.0 - 0.2 REGIONS k/ul Specimen Anatomical Collection Method Collection Time Receive d Time (Source) Location / / Volume Laterality 05/11/2010 6:00 AM 0 6:53 CDT AM CDT Kiko Powell MD LAB_1 Performing Organization Address City/State/ZIP Code Phon e Number [address] [address] [place], [place] [phone] GLUCOSE, WHOLE BLOOD POC (05/10/2010 9:32 PM CDT) P athologist Signature Glucose, Whole 129 70 - 180 REGIONS Blood mg/dl Comment: Point of Care Testing RN Notified Specimen Anatomical Collection Method Collection Time Receive d Time (Source) Location / / Volume Laterality 05/10/2010 9:32 PM 0 9:37 CDT PM CDT Maurice Baron MD LAB_1 Performing Organization Address City/[facility]/ZIP Code Phon e Number [address] [address] [place], [place] [phone] GLUCOSE, WHOLE BLOOD POC (05/10/2010 5:16 PM CDT) P athologist Signature Glucose, Whole 118 70 - 180 REGIONS Blood mg/dl Comment: Point of Care Testing RN Notified Specimen Anatomical Collection Method Collection Time Receive d Time (Source) Location / / Volume Laterality 05/10/2010 5:16 PM 0 5:21 CDT PM CDT Maurice Baron MD LAB_1 Performing Organization Address City/[facility]/ZIP Code Phon e Number [address] [address] [place], [place] [phone] GLUCOSE, WHOLE BLOOD POC (05/10/2010 12:10 PM CDT) P athologist Signature Glucose, Whole 103 70 - 180 REGIONS Blood mg/dl Comment: Point of Care Testing RN Notified Specimen Anatomical Collection Method Collection Time Receive d Time (Source) Location / / Volume Laterality 05/10/2010 12:10 05/10/2010 PM CDT 12:24 PM CDT Maurice Baron MD LAB_1 Performing Organization Address City/State/ZIP Code Phon e Number [address] [address] [place], [place] [phone] (ABNORMAL) UA WITH MICROSCOPIC (05/10/2010 11:30 AM CDT) [facility] gist Method Time Signature Urine Color Yellow REGIONS Urine Clarity Hazy REGIONS Specific 1.013 1.005 - REGIONS Aptos,Ur 1.03 pH, Urine 5.5 4.5 - 8.0 [...] Kiko Powell MD LAB_1 Performing Organization Address City/[facility] Phon e Number [address] [address] [place], [place] [phone] GLUCOSE, WHOLE BLOOD POC (05/10/2010 7:42 AM CDT) athologist Signature Glucose, Whole 107 70 - 180 REGIONS Blood mg/dl Comment: Point of Care Testing RN Notified Specimen Anatomical Collection Method Collection Time Receive d Time (Source) Location / / Volume Laterality 05/10/2010 7:42 AM 0 8:12 CDT AM CDT Maurice Baron MD LAB_1 Performing Organization Address City/[facility] Phon e Number [address] [address] [place], [place] [phone] (ABNORMAL) BASIC METABOLIC PANEL (05/10/2010 6:26 AM [...] Jayna Ambriz MD LAB_1 Performing Organization Address [facility] Phon e Number [address] [address] [place], [place] [phone] GLUCOSE, WHOLE BLOOD POC (05/09/2010 9:36 PM CDT) athologist Signature Glucose, Whole 108 70 - 180 REGIONS Blood mg/dl Comment: Point of Care Testing RN Notified Specimen Anatomical Collection Method Collection Time Receive d Time (Source) Location / / Volume Laterality 05/09/2010 9:36 PM 0 9:39 CDT PM CDT Maurice Baron MD LAB_1 Performing Organization Address City/[facility] Phon e Number [address] [address] [place], [place] [phone] GLUCOSE, WHOLE BLOOD POC (05/09/2010 5:36 PM CDT) athologist Signature Glucose, Whole 103 70 - 180 REGIONS Blood mg/dl Comment: Point of Care Testing RN Notified Specimen Anatomical Collection Method Collection Time Receive d Time (Source) Location / / Volume Laterality 05/09/2010 5:36 PM 0 9:39 CDT PM CDT Maurice Baron MD LAB_1 Performing Organization Address City/[facility] Phon e Number [address] [address] [place], [place] [phone] FUNGUS CULTURE,MISCELLANEOUS (05/09/2010 2:04 PM CDT) Component Value Ref Test Analysis Performed At [facility] gist Range Method Time Signature Specimen Aspirate [...] Maurice Baron MD LAB_1 Performing Organization Address City/[facility] Code Phon e Number [address] [address] [place], [place] [phone] ANAEROBIC CULTURE (05/09/2010 2:04 PM CDT) Component Value Ref Test Analysis Performed At [facility] gist Range Method Time Signature Specimen Fluid REGIONS Description SUBCUTANEOUS Back Special Unspecified REGIONS Requests Aerobic Cult [id number] REGIONS Number Culture No Anaerobes REGIONS Isolated Report Status Final 05/17/2010 REGIONS Specimen Anatomical Collection Method Collection Time Receive d Time (Source) Location / / Volume Laterality 05/09/2010 2:04 PM 0 2:21 CDT PM CDT Maurice Baron MD LAB_1 Performing Organization Address City/[facility] Phon e Number [address] [address] [place], [place] [phone] AEROBIC CULTURE (05/09/2010 2:04 PM CDT) Component Value Ref Test Analysis Performed At [facility] gist Range Method Time Signature Specimen Fluid REGIONS Description SUBCUTANEOUS Back Special Unspecified REGIONS Requests Gram Smear Moderate PMNs REGIONS Seen Gram Smear No Organisms REGIONS Seen Gram Smear Critical value REGIONS results given to and read back by ARCHANA PADILLA to ma at 14:58 Gram Smear on 05/09 REGIONS Culture No Growth After REGIONS 3 Days Report Status Final 05/12/2010 REGIONS Specimen Anatomical Collection Method Collection Time Receive d Time (Source) Location / / Volume Laterality 05/09/2010 2:04 PM 0 2:21 CDT PM CDT Maurice Baron MD LAB_1 Performing Organization Address [facility] Phon e Number [address] [address] [place], [place] [phone] (ABNORMAL) CSF TOTAL PROTEIN (05/09/2010 1:00 PM CDT) [facility] Method Time Signature Source Cerebrospinal REGIONS Fluid Total 247 (H) 12 - 60 REGIONS Protein, CSF mg/dl Comment: The use if this assay to monitor or diag nose patients has not been approved for this specimen type by the FDA or pre press manager of this assay. Specimen Anatomical Collection Method Collection Time Receive d Time (Source) Location / / Volume Laterality 05/09/2010 1:00 PM 0 3:14 CDT PM CDT Maurice Baron MD LAB_1 Performing Organization Address [facility] Phon e Number [address] [address] [place], [place] [phone] (ABNORMAL) CSF, GLUCOSE (05/09/2010 1:00 PM CDT) [facility] Method Time Signature Source Cerebrospinal REGIONS Fluid Glucose, CSF 34 (L) 40 - 70 REGIONS mg/dl Specimen Anatomical Collection Method Collection Time Receive d Time (Source) Location / / Volume Laterality 05/09/2010 1:00 PM 0 3:14 CDT PM CDT Maurice Baron MD LAB_1 Performing Organization Address [facility] Phon e Number [address] [address] [place], [place] [phone] (ABNORMAL) FIRST CSF CELL COUNT & DIFF (05/09/2010 1:00 PM CDT) Component Value Ref Test Analysis Performed At [facility] Inez Method Time Signature Source Cerebrospinal REGIONS Fluid [...] Maurice Baron MD LAB_1 Performing Organization Address [facility] Phon e Number [address] [address] [place], [place] [phone] CYTOLOGY, NON-DENTAL SERVICE TECHNICIAN (FLUIDS, URINE, SPUTUM) (05/09/2010 1:00 PM CDT) [facility] Method Time Signature Cytology, (NOTE) REGIONS Body Fluid Non-Advertising Account Manager Cytology Report Patient Name: JIE CULLEN Taken: 05/09/2010 Received: 05/09/2010 Reported: 05/09/2010 Physician(s): MAURICE BARON ([id number]) ? Final Cytologic Diagnosis Cerebrospinal Fluid: ?Satisfactory for evaluation. ?NEGATIVE FOR MALIGNANCY ?Inflammation cmc/05/09/2010 Electronically Signed Out By ? Swati Sanchez MD ([id number]) ? Procedures/Addenda Gross Description 0.5 mls of clear, colorless fluid received. 0.5 mls processe d to make 2 Perry-stained, single cytospin slides. Specimen Anatomical Collection Method Collection Time Receive d Time (Source) Location / / Volume Laterality 05/09/2010 1:00 PM 0 3:00 CDT PM CDT Maurice Baron MD LAB_1 Performing Organization Address City/[facility] Code Phon e Number [address] [address] [place], [place] [phone] FUNGUS CULTURE,MISCELLANEOUS (05/09/2010 1:00 PM CDT) Component Value Ref Test Analysis Performed At [facility] Range Method Time Signature Specimen Cerebrospinal REGIONS Description Fluid Special Unspecified REGIONS Requests Fungus Smear Nola Ink REGIONS Preparation Negative Culture No Fungus REGIONS Isolated Report Status Final 06/05/2010 REGIONS Specimen Anatomical Collection Method Collection Time Receive d Time (Source) Location / / Volume Laterality 05/09/2010 1:00 PM 0 1:13 CDT PM CDT Maurice Baron MD LAB_1 Performing Organization Address [facility] Phon e Number [address] [address] [place], [place] [phone] ANAEROBIC CULTURE (05/09/2010 1:00 PM CDT) Component Value Ref Test Analysis Performed At [facility] Range Method Time Signature Specimen Cerebrospinal REGIONS Description Fluid Special Unspecified REGIONS Requests Aerobic Cult [id number] REGIONS Number Culture No Anaerobes REGIONS Isolated Report Status Final 05/17/2010 REGIONS Specimen Anatomical Collection Method Collection Time Receive d Time (Source) Location / / Volume Laterality 05/09/2010 1:00 PM 0 1:13 CDT PM CDT Maurice Baron MD LAB_1 Performing Organization Address [facility] Phon e Number [address] [address] [place], [place] [phone] SPINAL FLUID CULTURE & SMEAR (05/09/2010 1:00 PM CDT) Component Value Ref Test Analysis Performed At [facility] Range Method Time Signature Specimen Cerebrospinal REGIONS [...] Maurice Baron MD LAB_1 Performing Organization Address City/[facility]/ZIP [facility] Phon e Number [address] [address] [place], [place] [phone] FUNGUS CULTURE,MISCELLANEOUS (05/09/2010 1:00 PM CDT) [facility] Method Time Signature Specimen Aspirate REGIONS Description [...] Maurice Baron MD LAB_1 Performing Organization Address [facility]/ZIP [facility] Phon e Number [address] [address] [place], [place] [phone] ANAEROBIC CULTURE (05/09/2010 1:00 PM CDT) Patholo gist Method Time Signature Specimen Fluid REGIONS Description BACLOFEN PUMP PACKET Special Received in REGIONS Requests Anaport Vial Aerobic Cult [id number] REGIONS Number Culture No Anaerobes REGIONS Isolated Report Status Final REGIONS 05/17/2010 Specimen Anatomical Collection Method Collection Time Receive d Time (Source) Location / / Volume Laterality 05/09/2010 1:00 PM 0 1:05 CDT PM CDT Maurice Baron MD LAB_1 Performing Organization Address City/[facility]/ZIP [facility] Phon e Number [address] [address] [place], [place] [phone] AEROBIC CULTURE (05/09/2010 1:00 PM CDT) [facility] Method Time Signature Specimen Fluid REGIONS Description BACLOFEN PUMP PACKET Special Received in REGIONS Requests Anaport Vial Gram Smear No PMN'S Seen REGIONS Gram Smear No Organisms REGIONS Seen Gram Smear Results REGIONS Called to [facility] in [place] 9 on speaker phone by M at 14:01 Culture No Growth REGIONS After 3 Days Report Status Final REGIONS 05/12/2010 Specimen Anatomical Collection Method Collection Time Receive d Time (Source) Location / / Volume Laterality 05/09/2010 1:00 PM 0 1:05 CDT PM CDT Maurice Baron MD LAB_1 Performing Organization Address City/[facility]/ZIP Code Phon e Number [address] [address] [place], [place] [phone] APTT (ACTIVATED PARTIAL THROMBOPLASTIN TIME (05/09/2010 7:05 AM CDT) athologist Signature PTT 28.6 24.0 - 37.0 REGIONS sec Specimen Anatomical Collection Method Collection Time Receive d Time (Source) Location / / Volume Laterality 05/09/2010 7:05 AM 0 7:09 CDT AM CDT Authorizing Provider Result Yuliet Baron MD LAB_1 Performing Organization Address [facility] Phon e Number [address] [address] [place], [place] [phone] ABO Rh & Antibody Screen (Type & Screen) (05/09/2010 4:00 AM CDT) [facility] gist Method Time Signature Crossmatch 05/12/2010 REGIONS Expires ABO/RH(D) A NEGATIVE REGIONS Antibody NEGATIVE REGIONS Screen Specimen Anatomical Collection Method Collection Time Receive d Time (Source) Location / / Volume Laterality 05/09/2010 4:00 AM 0 4:01 CDT AM CDT Maurice Baron MD LAB_1 Performing Organization Address [facility] Phon e Number [address] [address] [place], [place] [phone] (ABNORMAL) APTT (ACTIVATED PARTIAL THROMBOPLASTIN TIME (05/09/2010 3:59 AM CDT) athologist Signature PTT >180.0 (HH) 24.0 - 37.0 REGIONS sec Comment: Critical value checked, given to and sam d back by Swathi GARRETT RN [id number] Specimen Anatomical Collection Method Collection Time Receive d Time (Source) Location / / Volume Laterality 05/09/2010 3:59 AM 0 4:00 CDT AM CDT Maurice Baron MD LAB_1 Performing Organization Address [facility] Phon e Number [address] [address] [place], [place] [phone] (ABNORMAL) INR/PROTIME (05/09/2010 3:59 AM CDT) athologist Signature Protime 17.7 (H) 12.0 - 14.5 REGIONS sec INR 1.4 REGIONS Specimen Anatomical Collection Method Collection Time Receive d Time (Source) Location / / Volume Laterality 05/09/2010 3:59 AM 0 4:00 CDT AM CDT Maurice Baron MD LAB_1 Performing Organization Address [facility] Phon e Number [address] [address] [place], [place] [phone] GOLD HOLD TUBE (OR RED/RIGGS) (05/08/2010 7:00 AM CDT) [facility] Method Time Signature Gold Hold Held in [facility] Tube Chemistry sample rack for 7 days Specimen Anatomical Collection Method Collection Time Receive d Time (Source) Location / / Volume Laterality 05/08/2010 7:00 AM 0 7:13 CDT AM CDT Maurice Baron MD LAB_1 Performing Organization Address City/[facility]/ZIP [facility] Phon e Number [address] [address] [place], [place] [phone] SODIUM, URINE RANDOM (05/08/2010 7:00 AM CDT) athologist Signature Sodium, Urine 143 mmol/L REGIONS Random Specimen Anatomical Collection Method Collection Time Receive d Time (Source) Location / / Volume Laterality Urine specimen 05/08/2010 7:00 AM 010 7:16 (specimen) CDT AM CDT Poonam Shafer MD LAB_1 Performing Organization Address City/[facility]/ZIP [facility] Phon e Number [address] [address] [place], [place] [phone] OSMOLALITY, URINE (05/08/2010 7:00 AM CDT) athologist Signature Osmolality, 342 REGIONS Urine Specimen Anatomical Collection Method Collection Time Receive d Time (Source) Location / / Volume Laterality Urine specimen 05/08/2010 7:00 AM 010 7:15 (specimen) CDT AM CDT Poonam Shafer MD LAB_1 Performing Organization Address [facility] Phon e Number [address] [address] [place], [place] [phone] OSMOLALITY (05/08/2010 7:00 AM CDT) P athologist Signature Osmolality 293 280 - 300 REGIONS mosm/kg Specimen Anatomical Collection Method Collection Time Receive d Time (Source) Location / / Volume Laterality 05/08/2010 7:00 AM 0 7:11 CDT AM CDT Maurice Baron MD LAB_1 Performing Organization Address [facility] Phon e Number [address] [address] [place], [place] [phone] (ABNORMAL) BASIC METABOLIC PANEL (05/08/2010 7:00 AM [...] Maurice Baron MD LAB_1 Performing Organization Address [facility]/ZIP [facility] Phon e Number [address] [address] [place], [place] [phone] (ABNORMAL) INR/PROTIME (05/08/2010 7:00 AM CDT) P athologist Signature Protime 18.2 (H) 12.0 - 14.5 REGIONS sec INR 1.5 REGIONS Specimen Anatomical Collection Method Collection Time Receive d Time (Source) Location / / Volume Laterality 05/08/2010 7:00 AM 0 7:11 CDT AM CDT Maurice Baron MD LAB_1 Performing Organization Address [facility] Phon e Number [address] [address] [place], [place] [phone] GLUCOSE, WHOLE BLOOD POC (2010 9:24 PM CDT) P athologist Signature Glucose, Whole 122 70 - 180 REGIONS Blood mg/dl Comment: Point of Care Testing RN Notified Specimen Anatomical Collection Method Collection Time Receive d Time (Source) Location / / Volume Laterality 2010 9:24 PM 0 9:27 CDT PM CDT Maurice Baron MD LAB_1 Performing Organization Address City/[facility] Phon e Number [address] [address] [place], [place] [phone] GLUCOSE, WHOLE BLOOD POC (2010 5:18 PM CDT) P athologist Signature Glucose, Whole 149 70 - 180 REGIONS Blood mg/dl Comment: Point of Care Testing RN Notified Specimen Anatomical Collection Method Collection Time Receive d Time (Source) Location / / Volume Laterality 2010 5:18 PM 0 5:39 CDT PM CDT Maurice Baron MD LAB_1 Performing Organization Address City/[facility] Phon e Number [address] [address] [place], [place] [phone] GLUCOSE, WHOLE BLOOD POC (2010 12:08 PM CDT) P athologist Signature Glucose, Whole 106 70 - 180 REGIONS Blood mg/dl Comment: Point of Care Testing RN Notified Specimen Anatomical Collection Method Collection Time Receive d Time (Source) Location / / Volume Laterality 2010 12:08 2010 PM CDT 12:15 PM CDT Maurice Baron MD LAB_1 Performing Organization Address [facility] Phon e Number [address] [address] [place], [place] [phone] GLUCOSE, WHOLE BLOOD POC (2010 7:27 AM CDT) P athologist Signature Glucose, Whole 107 70 - 180 REGIONS Blood mg/dl Comment: Point of Care Testing RN Notified Specimen Anatomical Collection Method Collection Time Receive d Time (Source) Location / / Volume Laterality 2010 7:27 AM 0 CDT 12:15 PM CDT Maurice Baron MD LAB_1 Performing Organization Address [facility] Phon e Number [address] [address] [place], [place] [phone] PHOSPHORUS (2010 6:05 AM CDT) P athologist Signature Phosphorus 3.7 2.5 - 4.5 REGIONS mg/dl Specimen Anatomical Collection Method Collection Time Receive d Time (Source) Location / / Volume Laterality 2010 6:05 AM 0 6:43 CDT AM CDT Maurice Baron MD LAB_1 Performing Organization Address [facility] Phon e Number [address] [address] [place], [place] [phone] MAGNESIUM (2010 6:05 AM CDT) P athologist Signature Magnesium 2.1 1.6 - 2.3 REGIONS mg/dl Specimen Anatomical Collection Method Collection Time Receive d Time (Source) Location / / Volume Laterality 2010 6:05 AM 0 6:43 CDT AM CDT Maurice Baron MD LAB_1 Performing Organization Address City/[facility]/ZIP [facility] Phon e Number [address] [address] [place], [place] [phone] (ABNORMAL) INR/PROTIME (2010 6:05 AM CDT) athologist Signature Protime 20.2 (H) 12.0 - 14.5 REGIONS sec INR 1.7 REGIONS Specimen Anatomical Collection Method Collection Time Receive d Time (Source) Location / / Volume Laterality 2010 6:05 AM 201 0 6:43 CDT AM CDT Maurice Baron MD LAB_1 Performing Organization Address [facility] Phon e Number [address] [address] [place], [place] [phone] (ABNORMAL) HEMOGRAM/PLTS (05/06/2010 11:00 PM CDT) athologist Signature WBC 6.3 4.0 - 11.0 [...] Maurice Baron MD LAB_1 Performing Organization Address [facility] Phon e Number [address] [address] [place], [place] [phone] (ABNORMAL) BASIC METABOLIC PANEL (05/06/2010 11:00 PM [...] Maurice Baron MD LAB_1 Performing Organization Address [facility] Phon e Number [address] [address] [place], [place] [phone] GLUCOSE, WHOLE BLOOD POC (05/06/2010 9:06 PM CDT) athologist Signature Glucose, Whole 130 70 - 180 REGIONS Blood mg/dl Comment: Point of Care Testing RN Notified Specimen Anatomical Collection Method Collection Time Receive d Time (Source) Location / / Volume Laterality 05/06/2010 9:06 PM 0 9:10 CDT PM CDT Maurice Baron MD LAB_1 Performing Organization Address City/[facility] Phon e Number [address] [address] [place], [place] [phone] GLUCOSE, WHOLE BLOOD POC (05/06/2010 5:27 PM CDT) athologist Signature Glucose, Whole 127 70 - 180 REGIONS Blood mg/dl Comment: Point of Care Testing RN Notified Specimen Anatomical Collection Method Collection Time Receive d Time (Source) Location / / Volume Laterality 05/06/2010 5:27 PM 0 5:29 CDT PM CDT Maurice Baron MD LAB_1 Performing Organization Address City/[facility] Phon e Number [address] [address] [place], [place] [phone] GLUCOSE, WHOLE BLOOD POC (05/06/2010 11:56 AM CDT) P athologist Signature Glucose, Whole 132 70 - 180 REGIONS Blood mg/dl Comment: Point of Care Testing RN Notified Specimen Anatomical Collection Method Collection Time Receive d Time (Source) Location / / Volume Laterality 05/06/2010 11:56 05/06/2010 AM CDT 12:24 PM CDT Maurice Baron MD LAB_1 Performing Organization Address [facility] Phon e Number [address] [address] [place], [place] [phone] GLUCOSE, WHOLE BLOOD POC (05/06/2010 7:30 AM CDT) P athologist Signature Glucose, Whole 108 70 - 180 REGIONS Blood mg/dl Comment: Point of Care Testing RN Notified Specimen Anatomical Collection Method Collection Time Receive d Time (Source) Location / / Volume Laterality 05/06/2010 7:30 AM 0 8:09 CDT AM CDT Maurice Baron MD LAB_1 Performing Organization Address City/[facility]/ZIP Code Phon e Number [address] [address] [place], [place] [phone] (ABNORMAL) INR/PROTIME (05/06/2010 5:55 AM CDT) P athologist Signature Protime 19.9 (H) 12.0 - 14.5 REGIONS sec INR 1.6 REGIONS Specimen Anatomical Collection Method Collection Time Receive d Time (Source) Location / / Volume Laterality 05/06/2010 5:55 AM 0 6:00 CDT AM CDT Maurice Baron MD LAB_1 Performing Organization Address City/[facility]/ZIP Code Phon e Number [address] [address] [place], [place] [phone] GLUCOSE, WHOLE BLOOD POC (05/05/2010 8:53 PM CDT) P athologist Signature Glucose, Whole 145 70 - 180 REGIONS Blood mg/dl Comment: Point of Care Testing RN Notified Specimen Anatomical Collection Method Collection Time Receive d Time (Source) Location / / Volume Laterality 05/05/2010 8:53 PM 0 9:00 CDT PM CDT Maurice Baron MD LAB_1 Performing Organization Address City/[facility]/ZIP Code Phon e Number [address] [address] [place], [place] [phone] GLUCOSE, WHOLE BLOOD POC (05/05/2010 5:19 PM CDT) athologist Signature Glucose, Whole 125 70 - 180 REGIONS Blood mg/dl Comment: Point of Care Testing RN Notified Specimen Anatomical Collection Method Collection Time Receive d Time (Source) Location / / Volume Laterality 05/05/2010 5:19 PM 0 5:50 CDT PM CDT Maurice Baron MD LAB_1 Performing Organization Address City/[facility]/ZIP Code Phon e Number [address] [address] [place], [place] [phone] GLUCOSE, WHOLE BLOOD POC (05/05/2010 12:10 PM CDT) athologist Signature Glucose, Whole 137 70 - 180 REGIONS Blood mg/dl Comment: Point of Care Testing RN Notified Specimen Anatomical Collection Method Collection Time Receive d Time (Source) Location / / Volume Laterality 05/05/2010 12:10 05/05/2010 PM CDT 12:22 PM CDT Maurice Baron MD LAB_1 Performing Organization Address City/[facility]/ZIP Code Phon e Number [address] [address] [place], [place] [phone] GLUCOSE, WHOLE BLOOD POC (05/05/2010 7:43 AM CDT) P athologist Signature Glucose, Whole 108 70 - 180 REGIONS Blood mg/dl Comment: Point of Care Testing RN Notified Specimen Anatomical Collection Method Collection Time Receive d Time (Source) Location / / Volume Laterality 05/05/2010 7:43 AM 0 8:03 CDT AM CDT Maurice Baron MD LAB_1 Performing Organization Address [facility]/ZIP [facility] Phon e Number [address] [address] [place], [place] [phone] (ABNORMAL) INR/PROTIME (05/05/2010 6:15 AM CDT) athologist Signature Protime 21.4 (H) 12.0 - 14.5 REGIONS sec INR 1.8 REGIONS Specimen Anatomical Collection Method Collection Time Receive d Time (Source) Location / / Volume Laterality 05/05/2010 6:15 AM 0 6:21 CDT AM CDT Maurice Baron MD LAB_1 Performing Organization Address City/[facility]/ZIP Code Phon e Number [address] [address] [place], [place] [phone] VANCOMYCIN LEVEL (05/05/2010 6:15 AM CDT) athologist Signature Vancomycin 17.1 mcg/ml REGIONS Comment: Trough range: 10.0-20.0 Specimen Anatomical Collection Method Collection Time Receive d Time (Source) Location / / Volume Laterality Pre-infusion 05/05/2010 6:15 AM 0 6:21 CDT AM CDT Maurice Baron MD LAB_1 Performing Organization Address City/[facility]/ZIP [facility] Phon e Number [address] [address] [place], [place] [phone] (ABNORMAL) INR/PROTIME (05/04/2010 4:00 AM CDT) athologist Signature Protime 22.9 (H) 12.0 - 14.5 REGIONS sec INR 1.9 REGIONS Specimen Anatomical Collection Method Collection Time Receive d Time (Source) Location / / Volume Laterality 05/04/2010 4:00 AM 0 4:24 CDT AM CDT Maurice Baron MD LAB_1 Performing Organization Address City/[facility]/ZIP Code Phon e Number [address] [address] [place], [place] [phone] CREATININE / GFR (05/04/2010 4:00 AM CDT) athologist Signature Creatinine 0.70 0.66 - REGIONS 1.25 mg/dl GFR, Estimated >60.00 >60 REGIONS ml/min/1.7 3m2 GFR, Est., If >60.00 >60 REGIONS Black ml/min/1.7 3m2 Specimen Anatomical Collection Method Collection Time Receive d Time (Source) Location / / Volume Laterality 05/04/2010 4:00 AM 0 4:27 CDT AM CDT Maurice Baron MD LAB_1 Performing Organization Address City/[facility]/ZIP Code Phon e Number [address] [address] [place], [place] [phone] GLUCOSE, WHOLE BLOOD POC (05/03/2010 9:35 PM CDT) athologist Signature Glucose, Whole 111 70 - 180 REGIONS Blood mg/dl Comment: Point of Care Testing RN Notified Specimen Anatomical Collection Method Collection Time Receive d Time (Source) Location / / Volume Laterality 05/03/2010 9:35 PM 0 9:56 CDT PM CDT Maurice Baron MD LAB_1 Performing Organization Address City/[facility] Phon e Number [address] [address] [place], [place] [phone] VANCOMYCIN LEVEL (05/03/2010 5:45 PM CDT) athologist Signature Vancomycin 13.0 mcg/ml REGIONS Comment: Trough range: 10.0-20.0 Specimen Anatomical Collection Method Collection Time Receive d Time (Source) Location / / Volume Laterality Pre-infusion 05/03/2010 5:45 PM 0 5:47 CDT PM CDT Maurice Baron MD LAB_1 Performing Organization Address [facility] Phon e Number [address] [address] [place], [place] [phone] GLUCOSE, WHOLE BLOOD POC (05/03/2010 5:21 PM CDT) P athologist Signature Glucose, Whole 119 70 - 180 REGIONS Blood mg/dl Comment: Point of Care Testing RN Notified Specimen Anatomical Collection Method Collection Time Receive d Time (Source) Location / / Volume Laterality 05/03/2010 5:21 PM 0 9:56 CDT PM CDT Maurice Baron MD LAB_1 Performing Organization Address [facility] Phon e Number [address] [address] [place], [place] [phone] URINE CULTURE (05/03/2010 2:30 PM CDT) Component Value Ref Test Analysis Performed At [facility] [place] Range Method Time Signature Specimen Urine REGIONS Description Cath/Bladder Special Unspecified REGIONS Requests Culture [id number] col/ml REGIONS Yeast No Further Identification Report Status Final 05/04/2010 REGIONS Specimen Anatomical Collection Method Collection Time Receive d Time (Source) Location / / Volume Laterality Urine specimen 05/03/2010 2:30 PM 010 4:00 (specimen) CDT PM CDT Zina Garcia MD LAB_1 Performing Organization Address [facility] Phon e Number [address] [address] [place], [place] [phone] (ABNORMAL) UA WITH MICROSCOPIC (05/03/2010 2:30 PM CDT) Patholo gist Method Time Signature Urine Color Yellow REGIONS Urine Clarity Clear REGIONS Specific 1.012 1.005 - REGIONS Aptos,Ur 1.03 pH, Urine 8.0 4.5 - 8.0 [...] Zina Garcia MD LAB_1 Performing Organization Address City/State/ZIP Code Phon e Number [address] [address] [place], [place] [phone] [place] VENOUS DUPLEX LOWER EXTREMITY BILATERAL (05/03/2010 [...] Improving bilateral deep venous thrombos is. Lucy Colmenares PA-C RAD [place] (ABNORMAL) INR/PROTIME (05/03/2010 8:30 AM CDT) athologist Signature Protime 25.7 (H) 12.0 - 14.5 REGIONS sec INR 2.2 REGIONS Specimen Anatomical Collection Method Collection Time Receive d Time (Source) Location / / Volume Laterality 05/03/2010 8:30 AM 0 9:58 CDT AM CDT Maurice Baron MD LAB_1 Performing Organization Address City/[facility]/ZIP [facility] Phon e Number [address] [address] [place], [place] [phone] VANCOMYCIN LEVEL (05/01/2010 7:40 PM CDT) athologist Signature Vancomycin 11.1 mcg/ml REGIONS Comment: Trough range: 10.0-20.0 Specimen Anatomical Collection Method Collection Time Receive d Time (Source) Location / / Volume Laterality Pre-infusion 05/01/2010 7:40 PM 0 7:47 CDT PM CDT Trevin Salgado MD LAB_1 Performing Organization Address City/[facility] Phon e Number [address] [address] [place], [place] [phone] [place] FNA SUPERFICIAL (05/01/2010 2:50 PM CDT) [...] Component Value Ref Test Analysis Performed At [facility] gist Range Method Time Signature Specimen Drainage [...] ) Birgit ASKEW LAB_1 Performing Organization Address City/[facility]/ZIP [facility] Phon e Number [address] [address] [place], [place] [phone] ANAEROBIC CULTURE (05/01/2010 2:35 PM CDT) [facility] Method Time Signature Specimen Drainage REGIONS Description SUPERFICIAL BACK SEROMA Special Received in REGIONS Requests Anaport Vial Aerobic Cult [id number] REGIONS Number Culture No Anaerobes REGIONS Isolated Report Status Final REGIONS 05/08/2010 Specimen Anatomical Collection Method Collection Time Receive d Time (Source) Location / / Volume Laterality 05/01/2010 2:35 PM 0 3:43 CDT PM CDT Birgit ASKEW LAB_1 Performing Organization Address City/[facility]/ZIP [facility] Phon e Number [address] [address] [place], [place] [phone] XR PORTABLE CHEST 1 VIEW to verify [...] No pleural effusions. Procedure Note Barb Shelley - 05/01/2010 XR PORT CHEST 1 VW [...] Organization Address City/State/ZIP Code Phon e Number [address] [address] [place], [place] [phone] (ABNORMAL) INR/PROTIME (05/01/2010 6:15 AM CDT) P athologist Signature Protime 28.5 (H) 12.0 - 14.5 REGIONS sec INR 2.5 REGIONS Specimen Anatomical Collection Method Collection Time Receive d Time (Source) Location / / Volume Laterality 05/01/2010 6:15 AM 0 6:19 CDT AM CDT Yomi Miller MD LAB_1 Performing Organization Address City/State/ZIP Code Phon e Number [address] [address] [place], [place] [phone] [place] LUMBAR PUNCTURE (FOR CSF) (04/30/2010 11:34 [...] IMPRESSION: Successful lumbar puncture. Yomi Miller MD RAD [place] ANAEROBIC CULTURE (04/30/2010 11:00 AM CDT) Component Value Ref [facility] Range Method Time Signature Specimen Cerebrospinal REGIONS Description Fluid Special Unspecified REGIONS Requests Aerobic Cult [id number] REGIONS Number Culture No Anaerobes REGIONS Isolated Report Status Final 05/08/2010 REGIONS Specimen Anatomical Collection Method Collection Time Receive d Time (Source) Location / / Volume Laterality 04/30/2010 11:00 04/30/2010 AM CDT 12:15 PM CDT Yomi Miller MD LAB_1 Performing Organization Address [facility] Phon e Number [address] [address] [place], [place] [phone] (ABNORMAL) FIRST CSF CELL COUNT & DIFF (04/30/2010 11:00 AM CDT) [facility] Method Time Signature Source OTHER REGIONS (SPECIFY) [...] Zelalem Dick MD LAB_1 Performing Organization Address [facility] Phon e Number [address] [address] [place], [place] [phone] (ABNORMAL) SPINAL FLUID CULTURE & SMEAR (04/30/2010 11:00 AM CDT) Component Value Ref Test Analysis Performed At [facility] Method Time Signature Specimen Cerebrospinal REGIONS Description [...] Zelalem Dick MD LAB_1 Performing Organization Address City/State/ZIP Code Phon e Number [address] [address] [place], [place] [phone] (ABNORMAL) CSF TOTAL PROTEIN (04/30/2010 11:00 AM CDT) [facility] Method Time Signature Source Cerebrospinal REGIONS Fluid Total 804 (H) 12 - 60 REGIONS Protein, CSF mg/dl Comment: The use if this assay to monitor or diag nose patients has not been approved for this specimen type by the FDA or pre press manager of this assay. Specimen (Source) Anatomical Collection Method Collection Time Re ceived Time Location / / Volume Laterality Cerebrospinal fluid 04/30/2010 11:00 04/12 sample (specimen) AM CDT 11:57 AM C DT Zelalem Dick MD LAB_1 Performing Organization Address [facility] Phon e Number [address] [address] [place], [place] [phone] (ABNORMAL) CSF, GLUCOSE (04/30/2010 11:00 AM CDT) Patholo gist Method Time Signature Source Cerebrospinal REGIONS Fluid Glucose, CSF 32 (L) 40 - 70 REGIONS mg/dl Specimen (Source) Anatomical Collection Method Collection Time Re ceived Time Location / / Volume Laterality Cerebrospinal fluid 04/30/2010 11:00 04/12 sample (specimen) AM CDT 11:57 AM C DT Zelalem Dick MD LAB_1 Performing Organization Address [facility] Phon e Number [address] [address] [place], [place] [phone] Phosphorus (04/30/2010 6:19 AM CDT) P athologist Signature Phosphorus 3.6 2.5 - 4.5 REGIONS mg/dl Specimen Anatomical Collection Method Collection Time Receive d Time (Source) Location / / Volume Laterality 04/30/2010 6:19 AM 201 0 6:25 CDT AM CDT Yomi Miller MD LAB_1 Performing Organization Address [facility] Phon e Number [address] [address] [place], [place] [phone] Magnesium (04/30/2010 6:19 AM CDT) P athologist Signature Magnesium 1.9 1.6 - 2.3 REGIONS mg/dl Specimen Anatomical Collection Method Collection Time Receive d Time (Source) Location / / Volume Laterality 04/30/2010 6:19 AM 0 6:25 CDT AM CDT Yomi Miller MD LAB_1 Performing Organization Address [facility] Phon e Number [address] [address] [place], [place] [phone] (ABNORMAL) Basic Metabolic Panel (K, Na, CO2, Cl, Gluc, BUN, Creat, Ca) (Chem 8) (04/30/2010 6:19 AMCDT) P athologist Signature BUN 10 7 - 20 [...] Yomi Miller MD LAB_1 Performing Organization Address [facility] Phon e Number [address] [address] [place], [place] [phone] (ABNORMAL) CBC, Platelets with Differential (04/30/2010 6:19 AM CDT) Analysis Performed At Patho logist Time Signature WBC 8.9 4.0 - [...] 13 (L) 17 - 43 % REGIONS Greene 7 4 - 12 % REGIONS Eos 0 0 - 8 % REGIONS Baso 0 0 - 1 % REGIONS Neutrophil 7.1 1.8 - 7.7 REGIONS Absolute k/ul Lymph Absolute 1.1 1.0 - 4.8 REGIONS k/ul Greene Absolute 0.6 0.1 - 0.7 REGIONS k/ul Eos Absolute 0.0 0.0 - 0.5 REGIONS k/ul Baso Absolute 0.0 0.0 - 0.2 REGIONS k/ul Specimen Anatomical Collection Method Collection Time Receive d Time (Source) Location / / Volume Laterality 04/30/2010 6:19 AM 0 6:25 CDT AM CDT Yomi Miller MD LAB_1 Performing Organization Address [facility] Phon e Number [address] [address] [place], [place] [phone] MRSA ADMIT SCREEN (04/30/2010 1:45 AM CDT) Component Value Ref Test Analysis Performed At [facility] Range Method Time Signature Specimen Nose [...] Trevin Salgado MD LAB_1 Performing Organization Address [facility] Phon e Number [address] [address] [place], [place] [phone] XR ABDOMEN AP/OBLIQUES/LATERAL (04/30/2010 12:24 AM CDT) [...] EKG MR THORACIC SPINE WITH/WITHOUT CONTRAST (tell audio visual equipment rental clerk and call Radiologist) (04/29/2010 8:10 PM CDT) Anatomical Region Laterality Modality Spine, T-Spine, L-Spine, C-Spine, Skeletal Magnetic Resonance Specimen (Source) Anatomical Collection Method Collection Time Re ceived Time Location / / Volume Laterality 04/29/2010 8:10 PM CDT Narrative 04/29/2010 8:30 PM CDT [facility] THORACIC SPINE MRI ? 04/29/2010 INDICATION: Neck [...] cord. Procedure Note Julien Anna - 04/29/2010 [facility] THORACIC SPINE MRI 04/29/2010 INDICATION: Neck pain [...] TUBE (OR RED/RIGGS) (04/29/2010 5:11 PM CDT) Patholo gist Method Time Signature Gold Hold Held in [facility] Tube Chemistry sample rack for 7 days Specimen Anatomical Collection Method Collection Time Receive d Time (Source) Location / / Volume Laterality 04/29/2010 5:11 PM 0 5:23 CDT PM CDT Julian Fragoso MD LAB_1 Performing Organization Address [facility] Phon e Number [address] [address] [place], [place] [phone] COAG HOLD (BLUE TUBE) (04/29/2010 5:11 PM CDT) P athologist Signature Coag Hold Held in REGIONS Coag Rack for 8 hours Specimen Anatomical Collection Method Collection Time Receive d Time (Source) Location / / Volume Laterality 04/29/2010 5:11 PM 0 5:23 CDT PM CDT Julian Fragoso MD LAB_1 Performing Organization Address [facility] Phon e Number [address] [address] [place], [place] [phone] BB HOLD TUBE (REGIONS ONLY) (04/29/2010 5:11 PM CDT) [facility] [place] Method Time Signature BB Hold Tube Blood Bank REGIONS save tube expires in 3 days Specimen Anatomical Collection Method Collection Time Receive d Time (Source) Location / / Volume Laterality 04/29/2010 5:11 PM 0 5:23 CDT PM CDT Julian Fragoso MD LAB_1 Performing Organization Address [facility]/ZIP [facility] Phon e Number [address] [address] [place], [place] [phone] BLOOD CULTURE SITE 1 (04/29/2010 5:11 PM CDT) [facility] Method Time Signature Specimen Blood REGIONS Description PERIPHERAL IV LINE Special Unspecified REGIONS Requests Culture No Growth After REGIONS 6 Days Report Status Final REGIONS 05/05/2010 Specimen Anatomical Collection Method Collection Time Receive d Time (Source) Location / / Volume Laterality Blood specimen 04/29/2010 5:11 PM 010 7:53 (specimen) CDT PM CDT (Peripheral IV Line) Zelalem Dick MD LAB_1 Performing Organization Address City/[facility] Phon e Number [address] [address] [place], [place] [phone] (ABNORMAL) Basic Metabolic Panel (04/29/2010 5:11 PM CDT) P athologist Signature BUN 10 7 - 20 [...] Zelalem Dick MD LAB_1 Performing Organization Address [facility]/ZIP [facility] Phon e Number [address] [address] [place], [place] [phone] (ABNORMAL) HEMOGRAM/PLTS (04/29/2010 5:11 PM CDT) P [...] Zelalem Dick MD LAB_1 Performing Organization Address [facility] Phon e Number [address] [address] [place], [place] [phone] documented in this encounter Visit Diagnoses Diagnosis Pseudomeningocele - Primary Disorders of meninges, not elsewhere cla ssified Headache(784.0) Headache Fever Fever, unspecified Muscle spasticity Spasm of muscle Meningitis Meningitis, unspecified 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, unspecified site Other symptoms referable to back CAREPLAN: BACLOFEN Neurogenic bowel DVT (deep venous thrombosis) (HRC) Acute venous embolism and thrombosis of unspecified deep vessels of lower extremity Neurogenic bladder Neurogenic bladder, NOS Polyuria Hypotension Hypotension, unspecified Probable Bacterial Meningitis Meningitis due to unspecified bacterium HTN (hypertension) (HRC) Unspecified essential hypertension Initial Assessments - Mary Ann Dubose M - 05/11/2010 4:05 PM CDT [facility] Physical Therapy Evaluation Patient Seen: bedside Diagnosis: Encounter Diagnoses Code Name Primary? 322.9P Meningitis Yes ??? 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 784.0 Headache ??? 780.60BQ Fever ??? 728.85T Muscle Spasticity ??? 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 85072 CAREPLAN: BACLOFEN ??? 564.81 Neurogenic Bowel ??? [...] Mary Ann Dubose, PT Department number is [phone] Pager number is [phone] --- End of Report --- Initial Assessments - Romelia Abebe - 05/05/2010 10:54 AM CDT [facility] Nutrition Initial Limited Assessment and Care Plan Reason for Assessing Patient: LOS Assessment: Patient was well nourished AIRLINE PILOT and expect intake to be adequate within [...] within 6 days Report completed by: Romelia L Andor, DTR If you have questions, page [phone] Weekend pager: [phone] Nutrition Assessment Data Current Nutrition/Diet Order: Diet: [...] History: Diet History: Regular diet Intake/Digestive Problems AIRLINE PILOT: no problems noted Pertinent Biochemical Data, Medical [...] Aidee Villarreal - 04/30/2010 2:48 AM CDT [facility] Med-Surg / ICU [...] help in care after hospitalization?: Heather Cullen [phone] 1-2 other people (first/last name) you consider [...] Screening: No functional screening criteria is applicable PSYCHOSOCIAL/SPIRITUAL/ANGLICAN/CULTURAL/ABUSE/CHEMICAL Suicide Health Inventory Do you currently have [...] 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, grief/loss, etc.): Yes - 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 Consult Recommended Cultural practices that affect patient care (per Best Care Questionnaire)?: No Abuse/Assault Screening: No evidence of assault or abuse Chemical Use Screening: No chemical use screening criteria applicable SAFETY Falls Risk Assessment Patient: All Other Patients (Click Here) Age: 0 History of Falls: 4 Cognition: 0 Elimination: 0 Physical Mobility: 4 (non weight bearing) Lines & Tubes: 1 Medications (CV or FUEL OPERATOR): 2 Falls Risk Score: (0-4 Low) (5-10 Moderate) (11+ High): 11 Restraints Assessment Restraint Risks: (not recorded) Patient behaviors that put them at risk for restraint use?: No I acknowledge that the above adult initial assessment is complete. Yes, the above assessment is complete. Aidee Villarreal RN documented in this encounter Active and Recently [...] Oral, TID, 6 doses, First dose on 05/14/10 at 0800, Last dose on 05/15/10 at 2000 baclofen (aka LIORESAL) tablet 15 [...] () 0147 (Not Given - Provider: Merced Snowden RN - Reason: Other (Enter Reason in Comment Area) - Comment: tubing clamped. did not receive medication. noticed @ 0600.)0900 (Given - Provider: Garth Rodriguez)1900 (Given - Provider: Loretta Walters) 0700 (Given - Provider: Merced Snowden RN) IV, Q12H (NON-STND), 5 doses, First dose on Sat05/10/10 at 1300, Last dose on Sat05/12/10 at 0700 citalopram (aka CELEXA) tablet 40 mg (CANCELED) 0900 ( Given - Provider: Garth Rodriguez) 0800 (Given - Provider: Dave Sapp PA-C) 080 0 (Given - Provider: Ozzy Dietz RN) 40 mg, Oral, DAILY, First dose on 04/30/10 at 0800, Until Dis continued enoxaparin (aka LOVENOX) injection 115.5 mg 0900 (Give n - Provider: Garth Rodriguez)2200 (Given - Provider: Loretta Walters) 0800 (Given - Provider: Dave Sapp PA-C)2030 (Given - Provider: Loretta Walters RN) 0800 (Given - Provider: Ozzy Dietz RN)1999 (Given - Provider: Dulce Palafox) 115 mg = 115.5 mg, SC, Q12H, First dose on [place] 05/11/10 at 0800, Until Discontinued gabapentin (aka NEURONTIN) [...] Sapp PA-C) 0800 (Given - Provider: Ozzy ogld RN) 1 Cap, Oral, DAILY, First dose on [place] 05/04/10 at 0800, Until Dis continued LORazepam (aka ATIVAN) tablet 1 mg (CANCELED) 0900 (Gi lore - Provider: Garth Rodriguez)1305 (Given - Provider: Garth Rodriguez)2200 (Given - Provider: Loretta Walters) 0800 (Given - Provider: Dave mclean PA-C)1625 (Given - Provider: Loretta Walters RN)2029 (Given - Provider: Loretta Walters RN) 0800 (Given - Provider: Ozzy Dietz, VALERIE)1400 (Given - Provider: Ozzy Dietz RN)1999 (Given - Provider: Dulce Palafox) 1 mg, Oral, TID, First dose on 04/30/10 at 0800, Until Discon tinued polyethylene glycol [...] 0800 (Given - Provider: Ozzy gold RN) 40 mEq, Oral, DAILY, First dose on Sat05/09/10 at 0800, Until Di scontinued povidone-iodine (aka BETADINE) 10 % topical liquid (CA NCELED) 0900 (Given - Provider: Garth Rodriguez)2200 (Canceled Entry - Provider: Loretta Walters) 1000 (Given - Provider: Dave Sapp PA-C)2029 (Given - Provider: Loretta Walters RN) 0800 (Given - Provider: Ozzy gold RN)1999 (Given - Provider: Dulce Palafox) Topical, BID, First dose on 04/30/10 at 0800, Until Discontin ued senna (aka SENOKOT) tablet 17.2 mg (CANCELED) 0900 (Gi lore - Provider: Garth Rodriguez)2200 (Given - Provider: Loretta Walters) 08 (Given - Provider: Dave Sapp PA-C)2029 (Given - Provider: Loretta Walters, VALERIE) 08 (Given - Provider: Ozzy Dietz, VALERIE)1999 (Given - Provider: Dulce Palafox) 2 Tab = 17.2 mg, Oral, BID, First dose o n 05/01/10 at 1999, Until Discontinued sulfamethoxazole-trimethoprim (aka BACTRIM DS) 800-160 MG tablet 1 Tab 0800 (Given - Provider: Ozzy Dietz, VALERIE)1999 (Given - Provider: Dulce Palafox) 1 Tab, Oral, BID, 60 doses, First dose o n 05/13/10 at 0800, Last dose on Sat06/11/10 at 1999 vancomycin (aka VANCOCIN) 2,000 mg in Na Cl 0.9 % 500 mL IV PIGGYBACK (COMPLETED) 06 (Given - Provider: Merced haynes RN)1999 (Given - Provider: Loretta Walters - Comment: run over 2 hours) 799 (Given - Provider: Dave mclean PA-C)2029 (Given - Provider: Loretta Walters RN) for 90 Minutes, IV, Q12H (NON-STND), 5 d oses, First dose on Sat05/10/10 at 1800, Last dose on Sat05/12/10 at 1999 warfarin (aka COUMADIN) tablet 5 mg (CANCELED) 1910 (G iven - Provider: Loretta Walters) 1625 (Given - Provider: Loretta Walters, VALERIE) 1600 (Given - Provider: Dulce Palafox) 5 mg, Oral, WARFARIN - 1600, First dose on [place] 05/11/10 at 1600, Until Discontinued Continuous Medication Order 05/11/2010 05/12/2010 05/13/2010 NaCl 0.9 % infusion 250 mL (CANCELED) 1330 (Started - Provider: Ozzy Dietz RN) 250 mL, IV, CONTINUOUS, Starting 05/13/10 at 1248, Until Disco ntinued PRN Medication Order 05/11/2010 05/12/2010 05/13/2010 cyclobenzaprine (aka FLEXERIL) tablet 10 mg 10 mg, Oral, TID PRN, Starting Sun at 0150, Until Discontinued, Muscle Spasms hydrocodone-acetaminophen (aka VICODIN,LORTAB) 5-500 MG tabl et 1-2 Tab 1224 (Given - Provider: Dave Sapp PA-C)2028 (Given - Provider: Loretta Walters, VALERIE) 1430 (Given - Provider: Ozzy gold, VALERIE) 1-2 Tab, Oral, Q4H PRN, Starting Sat05/12/10 [...] = 20 g, Oral, BID PRN, Starting 05/11/10 at 1050, Until Discontinued, constipation documented in this encounter Care Teams Fourdrinier Tender Relationship Specialty Start Date End Date Unassigned, Provider PCP - General 11/28/01 05/21/[address] [place] [id number] documented as of this encounter
--- OUTSIDE RECORDS SUMMARY | 2022-06-20 02:35 | XMS_ITS | Encounter Summary ---
:1945 Author Organization [email or web address] Address [address] [address] Care Team Providers Name Role Phone Unassigned, Provider Primary Care Provider Unavailable Reason for Visit Reason Onset Date Comments FEVER 04/24/2010 Encounter Details Date Type Department Care Team Description 04/24/2010 Telephone Specialty Center 401 Garry Neff MD FEVER NeuroSurgery [address] [place] [address] [place] [address] [phone] Social History Tobacco Use Types Packs/Day Years Used Date Smoking Tobacco: Never Alcohol Use Standard Drinks/Week Comments No 0 (1 standard drink = 0.6 oz pure alcoho l) Sex Assigned at Date Recorded Male 08/06/2021 5:59 PM CDT documented as of this encounter Nursing Notes Michaelle Fletcher - 04/24/2010 11:49 AM CDT Patient s/p FUSION APPROACH (STAND ALONE) THORACIC AND/OR LUMBAR POSTERIOR of 04/05/2010 by . Returned the call. He stated that he has Pneumonia and was given Recophen and Zithromax and wanted to pass this message to .He has scheduled f/u appointment for 04/27/2010. I have informed him that I will pass the message.He is in agreement. Michaelle Fletcher R.N. Sweetie Sterling - 04/24/2010 10:02 AM CDT Patient's Heather is calling because her had fever over the weekend, went to ER this morning and was diagnosed with pneumonia. Patient was put on meds, please call at home #. documented in this encounter Plan of Treatment Not on filedocumented as of this encounter Visit Diagnoses Not on filedocumented in this encounter Care Teams Managed Security Sales Consultant Relationship Specialty Start Date End Date Unassigned, Provider PCP - General 11/28/01 05/21/[address] [place] [phone] documented as of this encounter
--- OUTSIDE RECORDS SUMMARY | 2022-06-20 02:35 | XMS_ITS | Encounter Summary ---
:1945 Author Organization [employer] Address [address] [address] Care Team Providers Name Role Phone Unassigned, Provider Primary Care Provider Unavailable Reason for Visit Reason Comments EXAM,POSTOP DOS 04/11/2010 Encounter Details Date Type Department Care Team Description 04/27/2010 Office Visit Specialty Center Garry Neff Tumor of 401 NeuroSurgery X, MD Thoracic Site [address] (Primary Dx) [place] [address] [place], [place] [phone] (Wo rk) Social History Tobacco Use Types Packs/Day Years Used Date Smoking Tobacco: Never Alcohol Use Standard Drinks/Week Comments No 0 (1 standard drink = 0.6 oz pure alcoho l) Sex Assigned at Date Recorded Male 08/06/2021 5:59 PM CDT documented as of this encounter Last Filed Vital Signs Vital Sign Reading Time Taken Comments Blood Pressure 110/64 04/27/2010 10:03 AM CDT Pulse 72 04/27/2010 10:03 AM CDT Temperature 36.6 ??C (97.9 ??F) 04/27/2010 10:03 AM CDT Respiratory Rate 20 04/27/2010 10:03 AM CDT Oxygen Saturation - - Inhaled Oxygen Concentration - - Weight - - Height - - Body Mass Index - - documented in this encounter Patient Instructions Patient InstructionsSelene Johnson - 04/27/2010 10:39 AM CDT Neurosurgery[facility]Spine Clinic Patient Instructions Please stop at first floor to poultry picking machine tender the copies of your intra-operative MRI's, this will also have the pre-op MRI's. You will need to follow up on 05-09 for wound check, with . Please limit your weight lifting to 10 #'s. You will be scheduled for a thoracic MRI in 3 months Follow up with Dr. Garry Neff, in 3 months with the MRI prior. If tests were ordered, they will be reviewed at your next office visit. Please allow 10-14 days for forms to be completed and 2-3 business days for medication refills. Please call the Neurosurgery/Spine Clinic at [phone] with any further questions or concerns. Please call this number if you need any other information sent to [facility] Specialty Care Technical Assistants will coordinate appointment. For additional information or questions regarding coverage call [phone] or [phone]. 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 Date of surgery was April 11. I had the pleasure of seeing the patient in clinic. He continues doing very well. OBJECTIVE: His wound is healing nicely. He has 3 retention sutures of which the top one looks a little bit tight. The other 2 are quite loose which is nice. The edema has substantially done down, and there are no inflammatory signs. He did have a low-grade fever for which he consulted our emergency room. A UA was negative, and chest x-ray was suggestive of a pneumonia for which he was started on antibiotics. He has not had any fever since. He denies any coughing or any increased sputum. The other medical issue is that prior to surgery he did get a feeling when he had to empty his bladder. He has lost that. This may come back; but for the interim, a De La Cruz catheter was placed by his primary doctor. I think if this does not come back, I would send him to urology to consider a suprapubic catheter. ASSESSMENT/PLAN: At this point, he is going to go to the [facility] in 8 days to be considered forchemotherapy. I want to see him back in 11 days for removal of retention sutures and also want to see him back in 3 months with an MRI of the area, with and without contrast, for followup after resection. I did speak with Dr. Yris Brownlee today [facility] and updated her. At this point, they will not do radiosurgery. Garry Neff MD mmj Dictated: 04/27/2010 10:41:33 Transcribed: 04/28/2010 09:46:49Job #: [id number] Doc #: [id number] cc:Yris Brownlee MD 1 Page 1 Patient Name: JIE CULLEN Visit Date: 04/27/2010 NEUROSURGERY CONFIDENTIAL MEDICAL RECORD [address] [address] Page 1 Patient: JIE CULLEN Location: [facility] HPN: [id number] Date of : 1945 Age: 64Y Visit Date: 04/27/2010 NEUROSURGERY documented in this encounter Nursing Notes 04/27/2010 10:20 AM CDT >> PRINCE BEY [facility] Apr 27, 2010 10:07 AM Postop The patient returns to the Neurosurgery Clinic for 2 weeks post op exam. This is not work comp related. Medications: tylenol with some relief when needed. Refills on no meds are needed. Incision Check: Cervical/thoracic incision is Clean, dry, intact with sutures intact. Patient needs no forms completed. Other concerns are none at this time. Rony Bey L.P.NUgo documented in this encounter Plan of Treatment Not on filedocumented as of this encounter Results MR THORACIC SPINE WITH/WITHOUT CONTRAST (07/27/2010 11:19 AM CDT) Anatomical Region Laterality Modality Spine, T-Spine, L-Spine, C-Spine, Skeletal Magnetic Resonance Specimen (Source) Anatomical Collection Method Collection Time Re ceived Time Location / / Volume Laterality 07/27/2010 11:19 AM CDT Narrative 07/27/2010 5:27 PM CDT THORACIC SPINE MRI ? [facility] 07/27/2010 INDICATION: Followup tumor resection. TECHNIQUE: Thoracic [...] cord neoplas m. Procedure Note Julien Anna - 07/27/2010 THORACIC SPINE MRI [facility] 07/27/2010 INDICATION: Followup tumor resection. TECHNIQUE: Thoracic [...] Primary Benign neoplasm of other specified sites Benign tumor of thoracic site Benign neoplasm of other specified sites Screening for nephropathy documented in this encounter Care Teams Shop Service Technician Relationship Specialty Start Date End Date Unassigned, Provider PCP - General 11/28/01 05/21/[address] [place] [phone] documented as of this encounter
--- OUTSIDE RECORDS SUMMARY | 2022-06-20 02:35 | XMS_ITS | Encounter Summary ---
:1945 Author Organization [facility] Address [address] [place] [address] Care Team Providers Name Role Phone Unassigned, Provider Primary Care Provider Unavailable Encounter Details Date Type Department Care Team Description 04/29/2010 Correspondence [facility] Radiology, MRI SAFETY SHEET [address] [place] [address] Provider [place] [address] Social History Tobacco Use Types Packs/Day Years Used Date Smoking Tobacco: Never Alcohol Use Standard Drinks/Week Comments No 0 (1 standard drink = 0.6 oz pure alcoho l) Sex Assigned at Date Recorded Male 08/06/2021 5:59 PM CDT documented as of this encounter Progress Notes [facility], PROVIDER - 05/08/2010 7:09 PM CDT documented in this encounter Plan of Treatment Not on filedocumented as of this encounter Visit Diagnoses Not on filedocumented in this encounter Care Teams Service Person Relationship Specialty Start Date End Date Unassigned, Provider PCP - General 11/28/01 05/21/10 [address] [place] [address] documented as of this encounter
--- OUTSIDE RECORDS SUMMARY | 2022-06-20 02:35 | XMS_ITS | Encounter Summary ---
:1945 Author Organization [facility] Address [address] [address] Care Team Providers Name Role Phone Unassigned, Provider Primary Care Provider Unavailable Reason for Visit Reason Onset Date Comments FOLLOW-UP,HOSPITAL 04/22/2010 Encounter Details Date Type Department Care Team Description 04/22/2010 Telephone Chelsea Jara RN FOLLOW-UP,[place] [address] Social History Tobacco Use Types Packs/Day Years Used Date Smoking Tobacco: Never Alcohol Use Standard Drinks/Week Comments No 0 (1 standard drink = 0.6 oz pure alcoho l) Sex Assigned at Date Recorded Male 08/06/2021 5:59 PM CDT documented as of this encounter Plan of Treatment Not on filedocumented as of this encounter Visit Diagnoses Not on filedocumented in this encounter Care Teams Labeling Specialist Relationship Specialty Start Date End Date Unassigned, Provider PCP - General 11/28/01 05/21/[address] [place] [id number] documented as of this encounter
--- OUTSIDE RECORDS SUMMARY | 2022-06-20 02:35 | XMS_ITS | Encounter Summary ---
:1945 Author Organization [facility] Address [address] [place] [address] Care Team Providers Name Role Phone Unassigned, Provider Primary Care Provider Unavailable Encounter Details Date Type Department Care Team Description 05/01/2010 Imaging [facility] [address] [place], [place] [id number] Social History Tobacco Use Types Packs/Day Years [...] Diagnosis Comme nts XR PORTABLE CHEST 1 Routine 05/01/2010 1:25 PM Re sults for this VIEW CDT procedure are i n the results [...] Heart size is normal. No pleural effusions. Garry Neff MD RAD PORTABLE documented in this encounter Visit Diagnoses Not on filedocumented in this encounter Care Teams Motors And Controls Tester Relationship Specialty Start Date End Date Unassigned, Provider PCP - General 11/28/01 05/21/[address] [place] [phone] documented as of this encounter
--- OUTSIDE RECORDS SUMMARY | 2022-06-20 02:36 | XMS_ITS | Encounter Summary ---
:1945 Author Organization [facility] Address [address] [place] [address] Care Team Providers Name Role Phone Unassigned, Provider Primary Care Provider Unavailable Encounter Details Date Type Department Care Team Description 04/13/[address] [place], [place] [id number] Social History Tobacco Use Types Packs/Day Years [...] Date/Time Associated Diagnosis Comme nts CT ANGIO CHEST W IV STAT 04/13/2010 7:01 PM Re sults for this CONT PE STUDY CDT procedure are in the results section. documented in this encounter Results CT ANGIOGRAPHY PULMONARY EMBOLISM STUDY (04/13/2010 7:01 PM CDT) Anatomical Region Laterality Modality Chest, Lung, Vascular Computed Tomograph y Specimen (Source) Anatomical Collection Method Collection Time Re ceived Time Location / / Volume Laterality 04/13/2010 7:01 PM CDT Narrative 04/13/2010 7:13 PM CDT CTA CHEST INDICATION: ??Shortness of breath, chest pain. TECHNIQUE: ??After nonenhanced math and science instructor teresa ges were obtained, helical acquisition through the chest was perfor med during the arterial phase of contrast enhancement. ??Thin section rec onstruction was performed in the axial plane with coronal MIP reformation . 100 ??mls. nonionic ??contrast COMPARISON: None FINDINGS: MEDIASTINUM: Central line tip overlies t he mid superior vena cava. No pulmonary emboli. No adenopathy .No evid ence for an aortic dissection. Coronary artery calcification consistent with coronary artery disease. PLEURA: Small pleural reactions. LUNGS: ??Bibasilar areas of platelike at electasis CHEST WALL AND AXILLAE: Negative UPPER ABDOMEN: Negative THORACIC SPINE: Postop change upper thor acic spine from T1 to T6. Drainage catheter demonstrated in the thoracic ca nal. CONCLUSION: 1. No pulmonary emboli 2. Bibasal areas of platelike atelectasi s. 3. Small pleural reactions 4. Postop change thoracic spine Procedure Note Mikal Hawkins N - 04/13/2010Formattin g of this note might be different from the original. CTA CHEST INDICATION: Shortness of breath, chest p ain. TECHNIQUE: After nonenhanced math and science instructor image s were obtained, helical acquisition through the chest was perfor med during the arterial phase of contrast enhancement. Thin section recon struction was performed in the axial plane with coronal MIP reformation . 100 mls. nonionic contrast COMPARISON: None FINDINGS: MEDIASTINUM: Central line tip overlies t he mid superior vena cava. No pulmonary emboli. No adenopathy .No evid ence for an aortic dissection. Coronary artery calcification consistent with coronary artery disease. PLEURA: Small pleural reactions. LUNGS: Bibasilar areas of platelike atel ectasis CHEST WALL AND AXILLAE: Negative UPPER ABDOMEN: Negative THORACIC SPINE: Postop change upper thor acic spine from T1 to T6. Drainage catheter demonstrated in the thoracic ca nal. CONCLUSION: 1. No pulmonary emboli 2. Bibasal areas of platelike atelectasi s. 3. Small pleural reactions 4. Postop change thoracic spine Cecile Browne PA-C RAD CT documented in this encounter Visit Diagnoses Not on filedocumented in this encounter Care Teams Medical Insurance Collector Relationship Specialty Start Date End Date Unassigned, Provider PCP - General 11/28/01 05/21/[address] [place] [id number] documented as of this encounter
--- OUTSIDE RECORDS SUMMARY | 2022-06-20 02:36 | XMS_ITS | Encounter Summary ---
:1945 Author Organization [facility] Address [address] [address] Care Team Providers Name Role Phone Unassigned, Provider Primary Care Provider Unavailable Encounter Details Date Type Department Care Team Description 04/11/2010 - Hospital S10 Maurice Baron Hypotension (Primary Dx); 04/20/2010 Encounter 640 Александр Saldivar MD Ependymoma; [place], [place] [address] Acute Respiratory Failure; [address] [place], [place] Tachycardia; [phone] [id number] DVT (Deep Venous Thrombosis); [phone] Acute Blood Los s Anemia; (Work) HTN (Hypertension); [phone] Sinus Tachycard ia; (Fax) Personal Histor y of DVT (Deep Vein Thrombosis); Breakdown of Sk in Tissue; Paraplegia; Pressure Ulcer; CAREPLAN: BACLO FEN; Constipation Social History Tobacco Use Types Packs/Day Years Used Date Smoking Tobacco: Never Alcohol Use Standard Drinks/Week Comments No 0 (1 standard drink = 0.6 oz pure alcoho l) Sex Assigned at Date Recorded Male 08/06/2021 5:59 PM CDT documented as of this encounter Last Filed Vital Signs Vital Sign Reading Time Taken Comments Blood Pressure 97/62 04/20/2010 12:00 PM CDT Pulse 99 04/20/2010 12:00 PM CDT Temperature 36.3 ??C (97.3 ??F) 04/20/2010 12:00 PM CDT Respiratory Rate 16 04/20/2010 12:00 PM CDT Oxygen Saturation 95% 04/20/2010 12:00 PM CDT Inhaled Oxygen Concentration - - Weight 104.3 kg (230 lb) 04/11/2010 11:53 AM CDT Height 177.8 cm (5' 10) 04/11/2010 11:53 AM CDT Body Mass Index 33 04/11/2010 11:53 AM CDT documented in this encounter Discharge Summaries Keith Lucy Bryn - 04/12/2010 12:22 PM CDT Neurosurgery Discharge Summary Jie Cullen is a 64 yr old male Date of : 1945 Admit Date: 04/11/2010 11:22 AM Discharge date:04-20-2010 Admitting diagnosis: Thoracic ependymoma Discharge Diagnosis: same as above, s/p 64 yo male s/p radical resection of thoracic spinal cord tumor on 04-11-[address] Baron Service: Neurosurgery Admitting Physician: Dr. Baron Procedures: 64 yo male s/p radical resection of thoracic spinal cord tumor on 04-11-[address] Baron Complications: Prolonged intubation post operatively Consults: 1. Medicine consult for medical management 2. PM&R 3. 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 Luan Glasgow. Post operatively pt states he lost some motor capabilities in LLE and lost peripheral sensation in RLE. The tumor continued to growand pt needed a second surgery was in July of 2000. Pathology report was significant for an ependymoma. After his surgery he had no significant. In January of 2001 pt was experiencing difficulty urinating and again needed surgery to remove more tumor that had grown. Pt then had radiation that slowed the growth for 5 years. At this time pt was using a cane. In February 2006 pt admitted to increased spacticity and they then met Dr. Brownlee to undergo Cyper Knife and he underwent that at the end of May 2006. In March of 2007 pt had fluid in spinal cord and he was put on steroids and he has need a wheelchair since. In February 2010 pt noticed urinary retention and difficulty getting started. Pt stated that a severe pain started in his mid thoracic spine and radiates around to his nipple, this is intermittent and canoccur 4-5 times a day and can last up to 1 minute. The thoracic pain is not new, they are just getting worse and more continuous. Pt also noticed right sided UE weakness, this weakness has improved In December of 2006 pt had a baclofen pump placed, with significant improvement in LE spacticity. Pt has needed to straight cath at all times since February, he states that he can usually feel the needto urinate but unable to go. On occasion he can not feel his urine. Prior to February he only needed tostraight cath at night. In regards to pt's bowels he has to take senokot and he can feel his bowels come, no urgency. Pre op imaging: MRI: compared to August 2009 MRI, larger spinal cord tumor behind T4 with significant cord compression Hospital Course: Pt was subsequently admitted on Admit Date: 04/11/2010 11:22 AM and underwent procedure stated above. Pt tolerated the procedure well and there were no intra-operative complications. Postoperative course was essentially unremarkable. Pt is tolerating pain medications orally and pain is controlled. Pt did pass flatus/have BM prior todischarge. No problems with voiding were noted. Patient is tolerating PO diet and medications. Denies SOB, Chest pain or chest pressure. Pt is in good condition for discharge to home. Incision CDI; no sign of infection. Pt is tolerating PT/OT. Pt was therapeutic with his INR range prior to d/c, no need for lovenox for bridging. Home health nurse to check INR in 2 days and will f/u with PCP for coumadin management. Medicine following pt during hospital stay for postoperative medical managment. MRI done showing post operative changes and tumor debulking. Labs: Reviewed and normal Physical Exam: BP 102/65 Pulse 103 Temp(Src) 97.8 ??F (36.6 ??C) (Oral) Resp 9 Ht 5' 10 (1.778 m) Wt 104.327 kg (230 lb) SpO2 85% General: in no acute distress. Alert and oriented x 3; fluent and appropriate Incision: clean, dry and intact; buttons intact HEENT: head normocepahlic, eyes sclera clear. Speech: clear and fluent Respiratory: Breathing unlabored Abdomen: soft and nontender, no distention noted Skin: Warm to touch to bilateral upper/lower extremities. Back: Spine observed with erect posture. Pt is non tender to palpation. Neuro: Manual motor testing is 5/5 BUE Sensation is intact with light touch throughout UE Pedal pulses palpable and normal Disposition: The patient will be discharged to home in good condition Diet: Resume pre op diet. Increase fluids and fiber to avoid constipation Discharge medications: 1. see epic list, resume INSTRUCTIONAL SPECIALIST medications as directed 2. Percocet 1-2 tabs po Q4h prn pain 3. Flexeril 10 mg po Q8h prn pain Discharge Wound Care: No dressing needed. Shower no bathing can pat dry. Use mild soap (non antibacterial) no lotions, potions, salves, ointments, or unguents on wound Discharge Instructions: No heavy lifting or vigorous physical activity. Do not lift >10# overhead. Discharge Follow-Up: in Dr Baron clinic as scheduled at [address] [place] [address]. Patient also instructed [facility] or hospital for any questions or concerns. Patient verbalizes understanding and states no further questions at this time. Scripts on chart Lucy Parker PA-C documented in this encounter Discharge Instructions Discharge InstructionsBernard Alcantar - 04/20/2010 11:20 AM CDT Images from the original note were not included. [address] [place] [address] Discharge Instructions for: Jie Cullen Thank you for choosing [facility] as your hospital. A copy of your discharge instructions has been given to you. Please read the instructions carefully. The staff will go over this information with you and answer your questions. General Information Allergies: Review of patient's allergies indicates no known allergies. Phone number: Telephone Information: Discharging physician: Loraine 04/20/10 Discharge date: 04/20/10 Primary Care Provider Primary care provider: Provider [...] to receive the influenza (seasonal flu) vaccine. H1N1 Influenza:did not meet the criteria to receive the H1N1 influenza vaccine. Home Medications Carefully read the medication handouts you are given. They contain information about the purpose andside effects of your medications. Talk to your doctor before taking other medications. For additional information about your medications, visit this [employer] website, [email or web address]. Current Discharge Medication List START taking these medications acetaminophen (AKA TYLENOL) 325 MG tablet Take 1-2 Tabs by mouth every 4 hours as needed for Pain. Qty: 120 Tab Refills: 1 ferrous sulfate 325 (65 FE) MG tablet Take 1 Tab by mouth daily with breakfast. Qty: 60 Tab Refills: 0 Last dose 800 am lactulose 10 GM/15ML solution Take 30 mL by mouth two times a day as needed. For constipation Qty: 240 mL Refills: 0 did not receive today lidocaine (AKA LIDODERM) 5 % patch Apply 2 Patches to skin daily. Qty: 21 Patch Refills: 0 last dose 800am povidone-iodine (AKA BETADINE) 10 % external solution Apply topically two times a day. Qty: 15 mL Refills: 1 done today warfarin (AKA COUMADIN) 5 MG tablet Take 1 Tab by mouth daily. Adjust dose based on INR result as directed. Qty: 30 Tab Refills: 11 received last jose Comments: INR range of 2.0-3.0 CONTINUE these medications which have NOT CHANGED atorvastatin (LIPITOR) 40 MG tablet Take 1 Tab by mouth daily.last dose 8oo am baclofen (AKA LIORESAL) 10 MG tablet Take 2 Tabs by mouth two times a day as needed. Qty: 20 Tab Refills: 0 BACLOFEN IT 220 mcg by Intrathecal route daily. citalopram (AKA CELEXA) 40 MG tablet Take 40 mg by mouth daily. Last dose 800am cyclobenzaprine (AKA FLEXERIL) 10 MG tablet Take 10 mg by mouth two times a day.last dose 800am docusate sodium (AKA ENEMEEZ) 283 MG enema Insert 1 Enema rectally daily. Gabapentin (AKA NEURONTIN) 100 MG tablet Take 2 Tabs by mouth three times a day.last dose 800 am LORazepam (AKA ATIVAN) 0.5 MG tablet Take 2 Tabs by mouth three times a day. Last dose 800 am OMEGA-3 FATTY ACIDS OR Take 1 Cap by mouth daily. senna (AKA SENOKOT) 8.6 MG tablet Take 1 Tab by mouth 4 times a day.last dose 800am TRIMETHOPRIM OR Take 100 mg by mouth daily.last dose 800am STOP taking these medications enoxaparin (AKA LOVENOX) 150 MG/ML injection Comments: Reason for Stopping: furosemide (AKA LASIX) 80 MG tablet Comments: Reason for Stopping: metoPROLOL tartrate (LOPRESSOR) 50 MG tablet Comments: Reason for Stopping: mupirocin (AKA BACTROBAN) 2 % ointment Comments: Reason for Stopping: potassium chloride (K-DUR) 20 MEQ tablet Comments: Reason for Stopping: Designated Pharmacy for Discharge Medications: [facility] If you were taking a medication before admission and you do not see it on the list of home medications, please contact your primary care doctor. Additional Orders Call the doctor for these danger signs Monitor incision daily for signs of infection; which include redness, drainage, swelling, tender andwarm to the touch. Keep incision dry, pat dry after shower. If you do not have dermabond on incisioncerver incision with Nexcare or Tegaderm for showers and remove immediately after shower. Leave incision open to air. Any changes in your incision or you develop a fever greater than 100.5, any changes in sensation or decrease in strength to your extremities, please call the Neurosurgery clinic with any concerns or changes. [phone] [facility] Referral CLINIC: [facility] [place]: Neurosurgery; [phone]; [address] [place] [address] DOCTORS NAME: Dr. 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 Clinic Referral CLINIC: [facility] Neuro-Oncology Department DOCTORS NAME: available physician WHEN TO BE SEEN: In 2-3 weeks REASON FOR APPOINTMENT: discuss chemotherapy options for recurrent ependymomaContact information:Telephone number: Patient ID number: [id number] DISCHARGE INSTRUCTIONS TO PATIENT Your blood pressure pills were stopped during your hospital stay due to your blood pressure being too low. It was normal on discharge without any blood pressure medications on board for several days. Talk with your primary care doctor (have you blood pressure rechecked) BEFORE restarting the blood pressure pills (metoprolol or furosemide). You do not need to take the potassium supplement while off the furosemide. DISCHARGE INSTRUCTIONS TO PATIENT You can resume home bowel regimen on discharge. If needed, lactulose was prescribed on discharge. You may also use over the counter Miralax on an as needed basis. LAB TESTS INR : SCHEDULING INSTRUCTIONS (date/time): 1-2 days from discharge with results forwarded to PMD, goal INR 2-3 Basic Metabolic Panel and hemoglobin: 1 week at followup with [facility] REFERRAL CLINIC: [facility] DOCTORS NAME: Dr. Meadows WHEN TO BE SEEN: 1 week REASON FOR APPOINTMENT: Followup blood pressure (off meds), INR/coumadin management, check hemoglobin and electrolytes Home Care Instructions Patient Teaching Handouts WOUND CARE: Keep the wound clean and dry. How to change the dressing: clean with betadine and cover Valuables/Medications Disposition of Money: Not Applicable Disposition of Medications: Kept with Patient Patient and/or family verified that all valuables have been returned: Yes Patient and/or family verified that all valuables removed from room safe: N/A Danger Signs Call your clinic or seek medical help if you have any sudden change in your condition or if you haveany of the following: chest pain difficulty breathing pain not relieved with usual methods SIGNS OF WOUND INFECTION: drainage from wound, redness or streak(s) from wound, increasing soreness around wound and fever greater than 101.5 degrees [facility] Resources NONE Contact Information [address] [address] For questions about your discharge instructions call the nursing unit : s10 Emergency & Urgently Needed Care: For emergencies call 911 and/or get medical help right away. If you are a [facility] member and have medical needs after clinic hours you may call the CareLineat [phone] or . All medical devices (telemetry/IV/etc) unless otherwise ordered, have been removed before discharge. Smoking and second-hand smoke exposure: Smoking damages blood vessels, reduces the oxygen in your blood and makes your heart beat too fast. If you smoke you should quit. Everyone should avoid second- hand smoke. If you would like further assistance after your discharge, please contact [phone] or visit [email or web address] can offer further [...] Ask what your ideal weight should be. We hope you had a positive experience and that you can definitely recommend [facility] to yourfamily and friends. You???ll be receiving a survey in the mail in about 2 weeks and we look forward to hearing your feedback. When leaving your room at discharge, please stop at the nursing unit desk to check out. I understand my discharge instructions: Jie Cullen (or Terrazzo Finisher) documented in this encounter Medications at Time of Discharge Medication Sig Dispensed Refills Start Date End Date acetaminophen (AKA Take 1-2 Tabs by 120 Tab 1 04/19/2010 11/06/2010 TYLENOL) 325 MG tablet mouth every 4 hours as needed for Pain. atorvastatin (LIPITOR) Take 1 Tab by mouth 0 10/21/2014 40 MG tablet daily. baclofen (AKA LIORESAL) Take 2 Tabs by mouth 20 Tab 0 05/13/2010 10 MG tablet two times a day as needed. BACLOFEN IT 220 mcg by 0 06/01/2010 Intrathecal route daily. citalopram (AKA CELEXA) Take 40 mg by mouth 0 10/02/2011 40 MG tablet daily. cyclobenzaprine (AKA Take 10 mg by mouth 0 05/13/2010 FLEXERIL) 10 MG tablet two times a day. docusate sodium (AKA Insert 1 Enema 0 04/21/2010 ENEMEEZ) 283 MG enema rectally daily. ferrous sulfate 325 (65 Take 1 Tab by mouth 60 Tab 0 06/201007/27/2010 FE) MG tablet daily with breakfast. Gabapentin (AKA Take 2 Tabs by mouth 0 07/27/2010 NEURONTIN) 100 MG tablet three times a day. lactulose 10 GM/15ML Take 30 mL by mouth 240 mL 0 200907/27/2010 solution two times a day as needed. For constipation lidocaine (AKA LIDODERM) Apply 2 Patches to 21 Patch 0 07/201004/21/2010 5 % patch skin daily. LORazepam (AKA ATIVAN) Take 2 Tabs by mouth 0 09/17/2014 0.5 MG tablet three times a day. OMEGA-3 FATTY ACIDS OR Take 1 Cap by mouth 0 07/27/2010 daily. povidone-iodine (AKA Apply topically two 15 mL 1 200906/01/2010 BETADINE) 10 % external times a day. solution senna (AKA SENOKOT) 8.6 Take 1 Tab by mouth 4 0 04/21/2010 MG tablet times a day. TRIMETHOPRIM OR Take 100 mg by mouth 0 10/20/2014 daily. warfarin (AKA COUMADIN) Take 1 Tab by mouth 30 Tab 11 07/201005/31/2010 5 MG tablet daily. Adjust dose based on INR result as directed. documented as of this encounter Progress Notes Bernard Alcantar - 04/20/2010 1:03 PM CDT [facility] Discharge Note - Nursing Admission Date/Time: 04/11/2010 11:22 AM Attending MD: Maurice Baron Patient discharged: to Home. Discharge Date: 04/20/10 Discharge Time: 1240 Patient accompanied by: self . Transported by: Wheelchair Valuables were taken home [...] removed and stored: Yes Report Completed by: Bernard Alcantar RN --- End of Report --- Elaine Brown - 04/20/2010 12:38 PM CDT [facility] Care Management Discharge Note Admission Date/Time: 04/11/2010 11:22 AM Attending MD: Maurice Baron Discharge Plan: Anticipated Discharge Date: 04/20/2010 Anticipated Discharge Time: 1 pm Patient to be discharged: to Home. Patient to be accompanied by: spouse. Transportation arranged for discharge: family Patient/Family aware of transportation benefit. Discharge equipment needs and arrangements: family requests medical records be sent to pcp in [place]. I obtained the release of information form to be done and info to be sent to Dr. Loretta Mcmahan MD Followup: no further needs Discharge Disposition Code: 01: Discharged to home or self-care (routine discharge) Report completed by Elaine Brown RN, Pager Number [phone] --- End of Report --- Criselda Rodriguez - 04/20/2010 12:09 PM CDT [facility] Medicine Progress Note Date of service: 04/20/2010 Subjective: Doing well, had large liquid BMs overnoc after aggressive bowel regimen. Feels belly is much softer and not tense. Eager to go home with . Objective: General: WDWN 64 yr male in NAD. Patient Vitals in the past 8 hrs: BP Temp Temp src Pulse Resp SpO2 Height Wt - Scale 04/20/10 0900 97/62 mmHg 97.5 ??F (36.4 ??C) Oral 105 18 93 % - - Exam: HEENT: eoms intact, MMM RESP: CTAB CV: RRR, no significant m/r/g ABD: +bs, softer today, nontender EXTS: edema to BLE improved, now 1+, TEDs on NEURO: Alert and conversant Current meds reviewed. All labs reviewed. Lab Results Component Value Date/Time ??? HGB 9.2* 04/18/10 6:50 AM ??? HGB 9.0* 04/17/10 7:15 AM ??? 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 Hypotension, mostly resolved. Holding outpt meds until followup with PMD. Sinus tachycardia, intermittent. Likely from hypovolemia. Asymptomatic, EKG without signs of ischemia, trops neg x 3. CTA neg for PE 04/13/2010. TSH slightly elevated, T4 wnl. Hgb stable in mid9s. Constipation. Resolved after ++bowel regimen yest. Hx of BLE DVT on chronic anticoagulation. INR 2.0, lovenox stopped, cont coumadin. Needs INR check tomorrow or Saturday thru home care agency or at PMDs office with results forwarded to PMD for further management (Dr. Meadows at [facility]). Acute blood loss anemia. No hx of CAD. Stable in the 9s. Cont iron tabs. Skin breakdown to buttock. At risk for skin breakdown given paraplegia/postop. Appreciate wound RN assistance. HTN. Was on Bb and lasix as outpt, holding for now given soft/low normal pressures. Paraplegic with known intrathecal baclofen pump. Pump settings evaluated 04/12/2010 by PM&R and was working fine, next refill date was on/before 04/25/2010. Plans to go to clinic for refill today after DC. Neurogenic bladder. Continues on daily prophlyactive trimethoprim. [place] until Dc, then straight caths himself prn. HLD. Cont on statin. 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 EBl 150cc, GETA, no complications per operativereport however patient was started on pressors to maintain blood pressure and experienced respiratory failure unable to be weaned from ventilator so he was admitted to SICU postoperatively. DVT prophylaxis--on therapeutic enoxaparin and coumadin, pain management, activity per NSG. 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 OK to DC from medicine perspective, orders in. More than 35 minutes; more than 50% of the time spent in coordinating care and counseling patient for above problems Criselda Rodriguez PA-C [facility] Medicine [phone] 04/20/2010 Trudi Locke - 04/20/2010 8:26 AM CDT [facility] -Rehabilitation [place] Physical Therapy Missed Visit Physical Therapy attempted to see patient today, 04/20/2010, for treatment. Unable to see patient forthis reason: pt just receiving breakfast tray. Pt reports he is looking fwd to d/c to home today, noconcerns at this time. Will d/c from acute PT, recommend home PT services and an rder for W/C/cushion PT assessment on outpt basis. Trudi Locke, PT [phone] --- End of Report --- Loretta Osman - 04/20/2010 6:15 AM CDT [facility] Progress Note (Nursing) Identify/Problem(s): GI fuction Desired Outcome(s): Pt will have return of GI function. Evaluation: Pt had large amounts of incont. liquid stool during the night. Abd remains round but less firm. Pt denies pain. VSS Plan: Discuss plan of care with pt and family. Loretta Osman RN --- End of Report --- AT Malika Maradiaga RN - 04/19/2010 11:23 PM CDT [facility] Progress Note (Nursing) Identify/Problem(s): Constipation, skin integrity Desired Outcome(s): Pt will have a BM and have optimal skin integrity. Evaluation: Pt given lactulose and scheduled senna this evening. Pt had 2 BM smears of soft BM. Abdomen remains firm and distended after BM smears. Pt given mag citrate, no result yet. Pt up to BR via WC and assist of three and transfer board. Coccxy and posterior scrotum are pinkened, skin is intact. Pt turned every two hours and not suppine throughout shift. Barrier cream applied to buttock and scrotum. Pt dangled at edge of bed x 2. Dressing changed and betadine applied. Sutures and buttons are CDI. BP 110/71 Pulse 97 Temp(Src) 97.5 ??F (36.4 ??C) (Oral) Resp 18 Ht 5' 10 (1.778 m) Wt 104.327 kg (230 lb) SpO2 98% Plan: Continue to encourage BM, plan for DC after BM. Malika Maradiaga RN --- End of Report --- Criselda Rodriguez - 04/19/2010 4:32 PM CDT [facility] Medicine Progress Note Date of service: 04/19/2010 Subjective: Feeling ok, still hasn't had decent BM after enemas and suppositories. Doesn't have sensation below nipple line so no pain per se but feels tight. Passing gas, de la cruz in. Objective: General: WDWN 64 yr male in NAD. Laying in bed. Patient Vitals in the past 8 hrs: BP Temp Temp src Pulse Resp SpO2 Height Wt - Scale 04/19/10 1242 107/73 mmHg 97.6 ??F (36.4 ??C) Oral 93 18 95 % - - Exam: HEENT: eoms intact, MMM RESP: CTAB ant CV: RRR, no significant m/r/g ABD: great bowel sounds, soft, mild distension, nontender EXTS: 2+ edema to BLE, in anna wraps NEURO: Alert and conversant Current meds reviewed. All labs reviewed. 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 Hypotension, resolved. Holding outpt meds until followup with PMD. Sinus tachycardia, resolved. Likely from hypovolemia. Asymptomatic, EKG without signs of ischemia, trops neg x 3. CTA neg for PE 04/13/2010. TSH slightly elevated, T4 wnl. Hgb stable in mid9s. Constipation. Cont on fairly extensive home regimen. Had fleets yest with minimal results. AXR without ileus or obstruction, gave MOM and lactulose today, can repeat if no stool in a couple hrs. Hx of BLE DVT on chronic anticoagulation. INR 2.0, lovenox stopped, cont coumadin. Needs INR check thru home care agency 2 days from DC with results forwarded to PMD for further management. Acute blood loss anemia. No hx of CAD. Stable in the 9s. Cont iron tabs. Skin breakdown to buttock. At risk for skin breakdown given paraplegia/postop. Appreciate wound RN assistance. HTN. Was on Bb and lasix as outpt, holding for now given soft/low normal pressures. Paraplegic with known intrathecal baclofen pump. Pump settings evaluated 04/12/2010 by PM&R and was working fine, next refill date was on/before 04/25/2010. Neurogenic bladder. Continues on daily prophlyactive trimethoprim. De La Cruz until Dc, then straight caths himself prn. HLD. Cont on statin. 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 EBl 150cc, GETA, no complications per operativereport however patient was started on pressors to maintain blood pressure and experienced respiratory failure unable to be weaned from ventilator so he was admitted to SICU postoperatively. DVT prophylaxis--on therapeutic enoxaparin and coumadin, pain management, activity per NSG. 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 OK to DC to home AFTER he has BM. INR management thru home care and PMD. Needs INR check in 2 days. More than 35 minutes; more than 50% of the time spent in coordinating care and counseling patient for above problems Criselda Rodriguez PA-C [facility] [phone] 04/19/2010 Bernard Alcantar - 04/19/2010 4:08 PM CDT [facility] Progress Note (Nursing) Identify/Problem(s): Skin Desired Outcome(s): Pt will have improved skin integrity Evaluation: Pt has reddeded upper buttock/coccyx that looks better than yesterday and is softer. Very small areaon scrotum with a speck of blood. ? Perhaps pinched when using slide board. Back incision is dry andintact with very little erythema. Plan: Monitor skin. Reposition frequently. Have pt wear shorts when using slide board . Bernard Alcantar RN --- End of Report --- Bernard Alcantar - 04/19/2010 4:07 PM CDT Problem: Falls Risk Goal: Moderate Risk (5-10): Fall Prevention I applied all active moderate risk falls prevention interventions. Veronica Christian - 04/19/2010 3:18 PM CDT [facility] Care Management Social Work Follow Up Note Admission Date/Time: 04/11/2010 11:22 AM Attending MD: Maurice Baron Data Chart reviewed; discussed with interdisciplinary team. Met throughout the day with patient, . Discussed case with RAND Lyman, Dr. Flores PM&R, RN. Planning for patient to have baclafin pump refilled with Dr. Hooper at [facility] in [place], probably tomorrow at 13:00. Planning to have in-home therapy with [facility], whom patient is familiar with. (# [phone]) (fax# [phone]). Orders faxed. First appt is Saturday at 14:00. Cancelled referral to [facility]. Patient will get INRs drawn at his clinic, as he had done before. Coordination of Care: Provided patient/family with options for d/c Barriers to Discharge: patient continues to require acute medical care Updated Assessment Patient still with bowel issues, questionable if he will d/c today. has spoken with medical team, and has gotten her questions answered. Pleased with care and communication. Has w/c van here in [place] now, and will take patient home tonight if medically stable, else go home tomorrow. Updated Plan of Care Anticipated Discharge Date: today or tomorrow Anticipated Discharge Plan: Home with home PT Plan for Follow Up: Will follow for any further d/c needs if still here tomorrow. Report completed by Veronica Christian [facility]ager Number [phone] (W, TH, F) --- End of Report --- Veronica Christian - 04/19/2010 2:54 PM CDT [facility] Transfer Orders to Home Health Care Patient Name: Jie Cullen Date of : 1945 Allergies: Review of patient's allergies indicates no known allergies. Immunizations: Most Recent Immunizations Administered Date(s) Administered ??? Flu Vac (3+ yrs) 10/06/2009 ??? H1n1 Miv Csl 3+ Yr (Injected) 12/06/2009 ??? Pneumococcal, PPSV23 10/06/2009 Current Attending Provider: Maurice Baron MD Discharge Procedure Orders Call the doctor for these danger signs Order Comments: Monitor incision daily for signs of infection; which include redness, drainage, swelling, tender and warm to the touch. Keep incision dry, pat dry after shower. If you do not have dermabond on incision cerver incision with Nexcare or Tegaderm for showers and remove immediately after shower. Leave incision open to air. Any changes in your incision or you develop a fever greater than 100.5, any changes in sensation or decrease in strength to your extremities, please call the Neurosurgery clinic with any concerns or changes. [phone] Regular Diet Clinic Referral Order Comments: CLINIC: [facility]: Neurosurgery; [phone]; [address] [place] [address] DOCTORS NAME: Dr. Baron WHEN TO BE SEEN: On (date) April 27 at 10:20 REASON FOR APPOINTMENT: MD follow up Physical Therapy (PT) Referral Order Comments: EVALUATE AND TREAT Occupational Therapy (OT) Referral Order Comments: EVALUATE AND TREAT Discharge Diagnosis Order Comments: S/p resection of thoracic spine ependymoma Clinic Referral Order Comments: CLINIC: [facility] Neuro-Oncology Department DOCTORS NAME: available physician WHEN TO BE SEEN: In 2-3 weeks REASON FOR APPOINTMENT: discuss chemotherapy options for recurrent ependymomaContact information:Telephone number: Patient ID number: [id number] DISCHARGE INSTRUCTIONS TO PATIENT Order Comments: Your blood pressure pills were stopped during your hospital stay due to your blood pressure being too low. It was normal on discharge without any blood pressure medications on . Talk with your primary care doctor (have you blood pressure rechecked) BEFORE restarting the blood pressure pills (metoprolol or furosemide). You do not need to take the potassium suppleme nt while off the furosemide. Discharge Medication Orders Current Discharge Medication List START taking these medications acetaminophen (AKA TYLENOL) 325 MG tablet Take 1-2 Tabs by mouth every 4 hours as needed for Pain. Qty: 120 Tab Refills: 1 ferrous sulfate 325 (65 FE) MG tablet Take 1 Tab by mouth daily with breakfast. Qty: 60 Tab Refills: 0 lidocaine (AKA LIDODERM) 5 % patch Apply 2 Patches to skin daily. Qty: 21 Patch Refills: 0 povidone-iodine (AKA BETADINE) 10 % external solution Apply topically two times a day. Qty: 15 mL Refills: 1 warfarin (AKA COUMADIN) 5 MG tablet Take 1 Tab by mouth daily. Adjust dose based on INR result as directed. Qty: 30 Tab Refills: 11 Comments: INR range of 2.0-3.0 CONTINUE these medications which have NOT CHANGED atorvastatin (LIPITOR) 40 MG tablet Take 1 Tab by mouth daily. baclofen (AKA LIORESAL) 10 MG tablet Take 2 Tabs by mouth two times a day as needed. Qty: 20 Tab Refills: 0 BACLOFEN IT 220 mcg by Intrathecal route daily. citalopram (AKA CELEXA) 40 MG tablet Take 40 mg by mouth daily. cyclobenzaprine (AKA FLEXERIL) 10 MG tablet Take 10 mg by mouth two times a day. docusate sodium (AKA ENEMEEZ) 283 MG enema Insert 1 Enema rectally daily. Gabapentin (AKA NEURONTIN) 100 MG tablet Take 2 Tabs by mouth three times a day. LORazepam (AKA ATIVAN) 0.5 MG tablet Take 2 Tabs by mouth three times a day. OMEGA-3 FATTY ACIDS OR Take 1 Cap by mouth daily. senna (AKA SENOKOT) 8.6 MG tablet Take 1 Tab by mouth 4 times a day. TRIMETHOPRIM OR Take 100 mg by mouth daily. These orders have been electronically signed. (In accordance with [place] Fed. Regulation Set, Fed A0232 - Types of Authentication) Discharging MD: Dr. Maurice Baron Today's Date: 04/19/10 --- End of Report --- Malathi Lopez - 04/19/2010 1:50 PM CDT Patient away at x-ray at time of my visit. Spoke with patient's . They are anticipating discharge soon. She reports patient has improved enough that he will be discharged home. Given patient's rarecondition of recurrent ependymoma despite multiple surgical resection, radiation therapy, and cyberknife, we feel he would be best served by a Neuro-Oncologist that specializes in ependymoma. Given where he lives, the [facility] is his best option. I spoke with the [facility] Neuro Oncology clinic this morning; unfortunately I was never able to talk directly to their on-call physician Dr. Alex. They would be happy to see Mr. 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 I gave his the following contact information to schedule an appointment when she feels sheis able to get him to [place]: [facility] Neuro Oncology Clinic Pt ID# [id number] I have added this information to his discharge orders and have asked the [employer] to aide ingetting patient a copy of his medical records and a CD of the imaging performed here to take with him. Hematology/Oncology will sign off now. If there are any further questions, please contact the on-call Hematology/Oncology fellow. Patient and plan discussed with Dr. Henry. Abby Ellsworth - 04/19/2010 11:23 AM CDT [facility] Occupational Therapy Missed Visit Treatment attempted today. Unable to start treatment due to: Spoke with pt and about further concerns. No further concernsneeded or questions. Possible d/c to home today with assistance from spouse. Agree with this. Will attempt treatment again if plan of care changes. . [facility] (pager[facility] OT Dept #: [phone] - OT Weekend Pager #: [phone] - [facility] Main #: [phone] --- End of Report --- Trudi Locke - 04/19/2010 9:29 AM CDT [facility] IP Physical Therapy Progress Note PT Visit Room/Bed: 93842/[id number] Patient Seen: bedside Diagnosis: Encounter Diagnoses Code Name Primary? 458.9Q Hypotension Yes ??? 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 518.81 Acute Respiratory Failure ??? 785.0H Tachycardia ??? 453.40U DVT (Deep Venous Thrombosis) ??? 285.1B Acute Blood Loss Anemia ??? 401.9AE HTN (Hypertension) ??? 427.89C Sinus Tachycardia ??? V12.51G Personal History of DVT (Deep Vein Thrombosis) ??? 701.8DH Breakdown of Skin Tissue ??? 344.1 Paraplegia ??? 707.00F Pressure Ulcer ??? 26720 CAREPLAN: BACLOFEN Pain: not bad per pt report, not formally rated. Action Taken: patient willing to continue with therapy Perception/Cognition/Orientation: patient alert and patient oriented to person/self, place and date/time Action Taken: no action needed Toileting Needs: no needs Action Taken: N/A Education: Provided discussion regarding home vs TCU d/c. Assist recommended for toilet transfers, etc.. Patient Position: in chair bedside Pt was seen bedside this am. Pt and pt's report continued improvement and they are hoping to beable to return home vs TCU following hospital stay. Pt sitting up at the edge of bed upon arrival with UE's resting on bedside table for support. Pt then transferred bed to w/c via small sliding board with assist from only (moderate assist) and supervision from therapist. Pt requires extra time, but was able to safely transfer. Assessment- pt progressing with transfers, requiring less assist. Anticipate pt will be able to return home with assist from his . Pt has all necessary equipment including w/c accessible van at home. Rec home PT services and additional assist (from family) for toilet transfers. Pt reports he only needs to perform actual toilet transfer every 1-2 days (bowel program) and otherwise he is able to self catheterize. Rec w/c and cushion outpt PT eval as pt likely would benefit from new pressure reliefcushion to prevent further skin breakdown. Plan- cont to follow throughout hospital stay. Amount of time spent in patient contact: AM: 15 minutes Trudi Locke PT Phone number is [phone] Pager: [phone] --- End of Report --- Extended Day Teacher, Lucy Clemente - 04/19/2010 9:10 AM CDT [facility] NeuroSurgery Progress Note Pt doing well today, has no new c/o or concerns. Vitals Temp (24hrs), Min:96 ??F (35.6 ??C), Max:98.2 ??F (36.8 ??C) No Data Recorded BP 120/68 Pulse 98 Temp(Src) 98.2 ??F (36.8 ??C) (Oral) Resp 18 Ht 5' 10 (1.778 m) Wt 104.327 kg (230 lb) SpO2 95% Exam Patient is awake/alert and answers questions appropriately. Movement: BUE with no problems. Incision clean and dry, betadine over incision Labs Lab Results Component Value Date/Time ??? SODIUM 141 04/17/10 7:15 AM ??? HGB 9.2* 04/18/10 6:50 AM ??? PROTIME 23.7* 04/19/10 7:25 AM ??? INR 2.0 04/19/10 7:25 AM Imaging No new imaging results Assessment 64 yo male s/p radical resection of thoracic spinal cord tumor on 04-11-[address] Baron Plan Ok to d/c home with today or tomorrow with home care Pt needs BM prior to d/c INR 2.0, no need for bridging with Lovenox at d/c Continue with betadine to incision 1-2x/day Lucy Parker PA-C --- End of Report --- Lisy Durand RN - 04/19/2010 7:22 AM CDT [facility] Progress Note (Nursing) Identify/Problem(s): Skin Integrity Desired Outcome(s): Patient's skin integrity will be kept to the optimal level. Evaluation: Patient is asleep most of the night. Turned to sides. Coccyx area is reddened but no blisters noted.De La Cruz catheter draining well with clear yellow urine. Denies pain. Plan: Will continue to monitor patient's skin integrity. Discussed plan of care with patient. Liys Durand RN --- End of Report --- Lisy Durand RN - 04/19/2010 6:07 AM CDT Problem: Falls Risk Goal: Moderate Risk (5-10): Fall Prevention I applied all active moderate risk falls prevention interventions. Malika Maradiaga RN - 04/18/2010 10:28 PM CDT [facility] Progress Note (Nursing) Identify/Problem(s): Activity, skin integrity Desired Outcome(s): Pt will have increased activity and optimal skin integrity. Evaluation: Pt dangled at edge of bed x 2 this evening. Pt able to hold self up. Pt also transfered from bed to WC to toilet with slide board and assist of 3. Pt transfers much improved compared to Sun 6/6 PM shift. Pt turned and repositioned every two hours while in bed. Buttocks is reddened with some blisters. Barrier spray and cream applied. Skin is intact. Pt had small BM after enema this evening, pt feels as if there is more stool and abdomen continues to be firm and distended. Back dressing changed and iodine solution applied. Incision is clean, dry, and intact with sutures and buttons. Pt is alert and oriented. BP 100/48 Pulse 87 Temp(Src) 97.3 ??F (36.3 ??C) (Oral) Resp 18 Ht 5' 10 (1.778 m) Wt 104.327 kg (230 lb) SpO2 95% Plan: Continue to encourage activity and assess skin integrity. Malika Maradiaga RN --- End of Report --- Martha Thomas - 04/18/2010 6:34 PM CDT [facility] PM&R Progress Note () Date of service: 04/18/2010 Encounter Diagnoses Code Name Primary? 458.9Q Hypotension Yes ??? 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 518.81 Acute Respiratory Failure ??? 785.0H Tachycardia ??? 453.40U DVT (Deep Venous Thrombosis) ??? 285.1B Acute Blood Loss Anemia ??? 401.9AE HTN (Hypertension) ??? 427.89C Sinus Tachycardia ??? V12.51G Personal History of DVT (Deep Vein Thrombosis) ??? 701.8DH Breakdown of Skin Tissue ??? 344.1 Paraplegia ??? 707.00F Pressure Ulcer Allergies:Review of patient's allergies indicates no known allergies. Current Medications: Current hospital medications Medication Dose Route Frequency ??? acetaminophen (aka TYLENOL) tablet 325-650 mg 325-650 mg Oral Q4H PRN ??? atorvastatin (aka LIPITOR) tablet 40 mg 40 mg Oral Daily ??? baclofen (aka LIORESAL) tablet 20 mg 20 mg Oral BID PRN ??? bisacodyl (aka DULCOLAX) suppository 10 mg 10 mg Rectal DAILY PRN ??? citalopram (aka CELEXA) tablet 40 mg 40 mg Oral Daily ??? cyclobenzaprine (aka FLEXERIL) tablet 10 mg 10 mg Oral BID ??? docusate sodium (aka ENEMEEZ) enema 1 Enema 1 Enema Rectal Daily ??? enoxaparin (aka LOVENOX) injection 100 mg 100 mg SC Q12H(NS) ??? ferrous sulfate tablet 325 mg 325 mg Oral Daily with meals ??? gabapentin (aka NEURONTIN) capsule 200 mg 200 mg Oral TID ??? insulin regular (aka humULIN R, novoLIN R) injection 2-12 Units 2-12 Units SC PRN based on BloodSugar ??? lidocaine (aka LIDODERM) 5 % 2 Patch 2 Patch Transdermal Daily ??? LORazepam (aka ATIVAN) tablet 1 mg 1 mg Oral TID ??? magnesium hydroxide (aka MILK OF MAGNESIA) oral liquid 30 mL 30 mL Oral DAILY PRN ??? MORphine injectable 1-4 mg 1-4 mg IV Q2H PRN ??? ondansetron (aka ZOFRAN) injection 4 mg 4 mg IV Q6H PRN ??? oxycoDONE-acetaminophen (aka PERCOCET) 5-325 MG tablet 1-2 Tab 1-2 Tab Oral Q4H PRN ??? patient's own pump IV Continuous ??? polyethylene glycol 3350 (aka GLYCOLAX) powder 17 g 17 g Oral Daily ??? povidone-iodine (aka BETADINE) 10 % topical liquid Topical BID ??? remove lidocaine patch 1 Each 1 Each Topical At Bedtime ??? senna (aka SENOKOT) tablet 8.6 mg 1 Tab Oral QID ??? trimethoprim (aka TRIMPEX) tablet 100 mg 100 mg Oral Daily ??? warfarin (aka COUMADIN) tablet 7.5 mg 7.5 mg Oral 1600 Subjective: No new problems, and patient concerned due to increasing edema of bilat LE. No pain. Continues with spasms. Also, new skin wound. Pain much better controlled. Tired. No chest pain. Hasnot had a large BM. Did not have any BM after enema. . Objective: Patient Vital Signs in the past 48 hrs: Height Wt - Scale Temp Temp src Pulse BP Resp SpO2 Oximetry Done On 04/18/10 1600 - - 96 ??F (35.6 ??C) Oral 87 106/76 mmHg 18 96 % RA 04/18/10 1200 - - 97.5 ??F (36.4 ??C) Oral 96 104/75 mmHg 18 95 % RA 04/18/10 0700 - - 98.1 ??F (36.7 ??C) Oral 109 119/75 mmHg 18 90 % RA 04/18/10 0400 - - 98.4 ??F (36.9 ??C) Oral 105 118/71 mmHg 16 95 % RA 04/17/10 2300 - - 98.3 ??F (36.8 ??C) Oral 104 119/75 mmHg 18 98 % RA 04/17/10 1942 - - 98.5 ??F (36.9 ??C) Oral 101 112/73 mmHg 18 96 % RA 04/17/10 1556 - - 97.4 ??F (36.3 ??C) Oral 106 103/62 mmHg 18 96 % RA 04/17/10 1251 - - 98.1 ??F (36.7 ??C) Oral 108 106/66 mmHg 18 97 % RA 04/17/10 0745 - - 98 ??F (36.7 ??C) Oral 107 119/67 mmHg 18 96 % RA 04/17/10 0511 - - 97.7 ??F (36.5 ??C) Oral 107 124/64 mmHg 16 95 % RA 04/17/10 0013 - - 97.7 ??F (36.5 ??C) Oral 106 131/81 mmHg 16 95 % RA 04/16/101999 - - 98 ??F (36.7 ??C) Oral 93 112/74 mmHg 16 96 % O2 Gen: No acute distress, alert and oriented times 3, affect is normal Lungs: Lungs clear bilaterally CV: Regular rate and rhythm Abd: Abdomen soft, distended, nontender, Extremities: edema above knee bilat , Neuromuscular: paraplegic. Sitting balance is appropriate. Wound: not examined. De La Cruz in place with clear urine Stool: Patient Stool in the past 120 hrs: Stool 04/17/10 2100 Medium 04/16/10 2140 Incontinent;Soft 04/16/10 0815 None 04/15/10 1600 None 04/14/10 0800 None Post Void Residual: No data found. Bladder Scanner Results: No data found. De La Cruz Output: Patient Urine Catheter Output (mL) in the past 24 hrs: Urine Catheter Output (mL) 04/18/10 1432 1000 ML 04/18/10 1049 1325 ML 04/18/10 0600 700 ML 04/17/10 2200 1000 ML 04/17/10 2100 800 ML Currently on Diet: Regular Liquid Consistency: Thin Lab Results Component Value Date/Time ??? GLWB 114 04/17/10 5:29 PM ??? GLWB 200* 04/17/10 12:07 PM ??? GLWB 107 04/17/10 8:07 AM ??? GLWB 134 04/16/10 9:00 PM ??? GLWB 148 04/16/10 11:22 AM ??? GLWB 113 04/16/10 7:58 AM ??? GLWB 130 04/12/10 3:59 PM ??? GLWB 145 04/12/10 12:26 PM Labs: Results for orders placed during the hospital encounter of 04/11/10 (from the past 24 hour(s)) HEMOGLOBIN, BLOOD Component Value Range ??? HGB 9.2 (*) 13.5-17.5 (g/dl) INR/PROTIME Component Value Range ??? PROTIME 19.9 (*) 12.0-14.5 (sec) ??? 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 Patient with hx of chronic spasticity. Pump was not interrogated or adjusted today. I discussed withpatient and , who will call their primary PMR clinic for pump refill possibly tomorrow or when patient is discharged. I will be following and if pump needs to be refilled prior to discharge, pleasecontact me or PMR. Chronic dependent edema: secondary and associated to SCI issues. bilateral anna wrapping applied withnurse staff. Recommend checking skin BID and reapply. Recommend formal referral to orthosis company in the outpatient with custom made compression stockings. Hypotension: agree with medicine and exacerbated by primary dx of SCI. Patient with baseline likely low bp with associated orthostatics. . Recommend anna wrapping daily and abd binder for chronic hypotension issues. Medicine following also. Florinef if becomes chronic. Skin wound: wound nurse. Change position q 2 hours. He also will need a formal PT assessment for w/chair assessment and special cushion May need formal referral and insurance authorization for air mattress at home (can be done thru his primary PMR clinic) Bowel program: cont wtih daily or BID miralax, senna 2 tab BID, and daily minienema (per home regimen).may substitute for daily supp. If no BM ( consider 30ml of milk of mag,plus 30mil of Lactulose) may repeat x 2. Plain Ab xray recommended also. Bladder: UA chronically colonized. De La Cruz in place. Medicine following other medical issues. Please contact me if questions. Total time: 35min. Counseling and Coordination time: 30min. Martha South MD --- End of Report --- Bernard Alcantar - 04/18/2010 2:37 PM CDT [facility] Progress Note (Nursing) Identify/Problem(s): Activity Desired Outcome(s): Pt will tolerate increased activity Evaluation: Pt up several times with assist. Using slide board. Having some increased spasms and was given an extra baclofen with some effect. Plan: Conitnue to increase activity as tolerated by patient. Bernard Alcantar RN --- End of Report --- Bernard Alcantar - 04/18/2010 2:20 PM CDT Problem: Falls Risk Goal: Moderate Risk (5-10): Fall Prevention I applied all active moderate risk falls prevention interventions. Trudi Locke - 04/18/2010 1:24 PM CDT [facility] Physical Therapy Progress Note PT Visit Room/Bed: 59325/[id number] Patient Seen: bedside Diagnosis: Encounter Diagnoses Code Name Primary? 458.9Q Hypotension Yes ??? 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 518.81 Acute Respiratory Failure ??? 785.0H Tachycardia ??? 453.40U DVT (Deep Venous Thrombosis) ??? 285.1B Acute Blood Loss Anemia ??? 401.9AE HTN (Hypertension) ??? 427.89C Sinus Tachycardia ??? V12.51G Personal History of DVT (Deep Vein Thrombosis) ??? 701.8DH Breakdown of Skin Tissue ??? 344.1 Paraplegia Pain: not formally rated. Action Taken: patient willing to continue with therapy Perception/Cognition/Orientation: patient alert and patient oriented to person/self, place and date/time Action Taken: no action needed Toileting Needs: no needs Action Taken: N/A Education: Provide support and encouragement and answered questions related to rehab course Patient Position: in chair bedside AM- pt seen bedside this am. Pt transferred supine to sit with mod/max assist of one, using draw sheet under pt to assist with scooting his buttocks toward the edge of bed. Pt then transferred bed to w/c via small sliding board with providing the majority of assist (moderate assist) and min assist from therapist to help from behind. PM- pt seen bedside again this pm. Pt performed bed to w/c transfer as per am session with assisting and min assist from therapist. Pt then requested to practice w/c to commode transfer and was able to do this with moderate assist of 2 using sliding board. Pt's again stood in front and therapist assisted from behind. Assist of 3rd person required upon returning to chair to get the sliding board out from under pt's buttocks and to help him get positioned comfortably in w/c. Assessment- pt is progressing with transfers and able to participate more each day. If pt desires return home following hospital stay would recommend assist of 2 be present for transfers initially (especially for the toilet transfers). Also recommend home PT services to further work on LE ROM and functional transfers in home environment. Pt does have all necessary equipment for home, but may benefit from short TCU stay for continued PT if agreeable. Plan- cont to follow working on transfer training. Amount of time spent in patient contact: AM: 15 minutes PM: 30 minutes Trudi Locke PT Phone number is [phone] Pager: [phone] --- End of Report --- Extended Day Teacher, Lucy Clemente - 04/18/2010 1:21 PM CDT NeuroSurgery Progress Note Pt doing well, does feel stronger today. Vitals Temp (24hrs), Min:97.4 ??F (36.3 ??C), Max:98.5 ??F (36.9 ??C) No Data Recorded BP 104/75 Pulse 96 Temp(Src) 97.5 ??F (36.4 ??C) (Oral) Resp 18 Ht 5' 10 (1.778 m) Wt 104.327 kg (230 lb) SpO2 95% Exam Pt sitting in chair comfortably Incision intact, dressing with drainage Moves upper extremities spontaneously Labs Lab Results Component Value Date/Time ??? SODIUM 141 04/17/10 7:15 AM ??? HGB 9.2* 04/18/10 6:50 AM ??? PROTIME 19.9* 04/18/10 9:00 AM ??? 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 Baron Plan INR still not therapeutic will continue with Lovenox Betadine to incision BID Ok to d/c home tomorrow, will most likely need TCU Lucy Parker PA-C --- End of Report --- Tania Brantley - 04/18/2010 1:10 PM CDT [facility] Care Management Wireless Retail Manager Follow Up Note Admission Date/Time: 04/11/2010 11:22 AM Attending MD: Maurice Baron Date Chart reviewed; discussed with interdisciplinary team and with patient and family. Coordination of Care: Provided patient/family with options for dc planning. Barriers to Discharge: patient continues to require acute medical care Updated Assessment Discussed plan of care in interdisciplinary round with NS team and ROXY Dixon. Pt may be ready to dc tomorrow. Need monitoring of vs off iv fluids. Met with pt and his this morning to discuss their thoughts on dc needs and planning. Although pt's first choice would be to dc directly home, he feels best plan would be to tsf to tcu for short time to increase his UE strength prior to returning home. Feels it would help his out as well. is feeling that tcu may be best plan of care at this time as well. They would like to see how pt does today and in am and if he makes great progress, donot rule out going home with maybe home therapy and nursing for inr draws. But at this time, tcu is the plan. They would like pt's name on list at [facility] (ph: [phone], fx: [phone])in [place]. I made referral to this facility and spoke with admission coordinator, Mer Simpson. She did not receive initial fax that was sent over via [employer], so I manually faxed paperwork to her again. They do have a bed available, but need to review information and do nursing screen before confirming whether or not they can meet pt's needs. Will update pt and as soon as I hear back from Mer. Pt's will transport pt in their van on day of dc whether it be to tcu or home. Updated pt's bedside RN with the above information as well. Call with questions. Updated Plan of Care Anticipated Discharge Date: 04/19/10 Anticipated Discharge Plan: tcu likely Plan for Follow Up: in am Report completed by Tania Brantley RN, Pager Number [phone] --- End of Report --- Tania Brantley - 04/18/2010 1:10 PM CDT [facility] Care Management Wireless Retail Manager Follow Up Note Admission Date/Time: 04/11/2010 11:22 AM Attending MD: Maurice Baron Date Chart reviewed; discussed with interdisciplinary team and with patient and family. Coordination of Care: Provided patient/family with options for dc planning. Barriers to Discharge: patient continues to require acute medical care Updated Assessment Discussed plan of care in interdisciplinary round with NS team and ROXY Dixon. Pt may be ready to dc tomorrow. Need monitoring of vs off iv fluids. Met with pt and his this morning to discuss their thoughts on dc needs and planning. Although pt's first choice would be to dc directly home, he feels best plan would be to tsf to tcu for short time to increase his UE strength prior to returning home. Feels it would help his out as well. is feeling that tcu may be best plan of care at this time as well. They would like to see how pt does today and in am and if he makes great progress, donot rule out going home with maybe home therapy and nursing for inr draws. But at this time, tcu is the plan. They would like pt's name on list at [facility] (ph: [phone], fx: [phone])in [place]. I made referral to this facility and spoke with admission coordinator, Mer Simpson. She did not receive initial fax that was sent over via [employer]in, so I manually faxed paperwork to her again. They do have a bed available, but need to review information and do nursing screen before confirming whether or not they can meet pt's needs. Will update pt and as soon as I hear back from Mer. Pt's will transport pt in their van on day of dc whether it be to tcu or home. Updated pt's bedside RN with the above information as well. Call with questions. Addendum: Spoke with Trudi PT this afternoon and she states pt and are now considering home withhome care. I spoke to pt and the other day re: hc and they have no agency preference. I made a referral to [facility] ph: [phone] Fx: [phone]. Spoke with Virginia in intake. Informed her pt may go to tcu but likely home care. Requested a visit for day after discharge. They can provide PT and SNV for incision check, skin assessment, vs, and inr draws. Virginia will need call in am to confirm whether pt needs home care or not. Also received call back from Mer at [facility]. They have accepted pt for admission and can take tomorrow. She will also need a call in th e am to either notify them if pt going home vs what time pt is discharging. Also spoke with Dr. Flores, PM&R who has been following for baclofen pump. She states pt will need to have pump refilled by April 24. Wondering whether wants to follow up with primary rehab MD, Dr. Hooper ([place]) vs having her possibly do it on day of dc. Have not had a chance to discuss this with . Will try to have conversation in am. Updated Plan of Care Anticipated Discharge Date: 04/19/10 Anticipated Discharge Plan: tcu likely Plan for Follow Up: in am Report completed by Tania Brantley RN, Pager Number [phone] --- End of Report --- Abby Ellsworth - 04/18/2010 12:01 PM CDT [facility] Occupational Therapy Progress Note Treatment Summary: The pt was seen this AM at bedside. Pt was in w/c upon arrival. Pt was given hand strengthener and completed x 15 reps on BUE. Pt completed shoulder stretches, flex/ext and w/c push-ups x 10 reps. Pt transferred from w/c to bed using small sliding board and MOD A of therapist and assist of . Pt tra nsferred sit to supine with assist from spouse for legs. Pt was with wound nurse and spouse upon leaving. Pain: no c/o pain during therapy activities Action Taken: none Activity Tolerance: Good Education: Provided patient, family education, training, and/or instruction in the following areas as relevant to meaningful participation in daily occupations: provided support and encouragement and answered questions related to rehab course and UE ROM/strengthening/conditioning exercises. Patient and/or caregiver response to teaching: verbalized understanding Recommendations: Anticipate pt will be able to d/c home with assistance from spouse, if she feels comfortable with transfers. Will follow in acute care 5 x per week for strengthening and functional mobility. Amount of time spent in patient contact: 30 minutes Abby Ellsworth OTR/L (pager) OT Dept #: [phone] - OT Weekend Pager #: [phone] - [facility] [place] Main #: [phone] Addendum: issued pt a yellow theraband for pt to use in room and tubi magazine grinder loader for w/c brakes. --- End of Report --- Criselda Rodriguez - 04/18/2010 10:18 AM CDT [facility] Medicine Progress Note Date of service: 04/18/2010 Subjective: Feeling fine, Denies f/c/n/v/cp/sob. De La Cruz in, still hasn't had normal sized BM since jose of surgery. Starting to feel tight abdomen. Passing gas. concerned about redness that developed to his low back over the weekend, no hx of skin breakdown or decibuti previously. Objective: General: WDWN 64 yr male in NAD. Up in wheelchair. Patient Vitals in the past 8 hrs: BP Temp Temp src Pulse Resp SpO2 Height Wt - Scale 04/18/10 0700 119/75 mmHg 98.1 ??F (36.7 ??C) Oral 109 18 90 % - - 04/18/10 0400 118/71 mmHg 98.4 ??F (36.9 ??C) Oral 105 16 95 % - - Exam: HEENT: eoms intact, MMM RESP: CTAB post, dressing to mid back with scant shadowing CV: regular, slightly tachy in low 100s, no significant m/r/g ABD: +bs, soft, nt/nd EXTS: 1-2+ edema to BLEs NEURO: Alert and conversant Current meds reviewed. All labs reviewed. Lab Results Component Value Date/Time ??? INR 1.6 04/18/10 9:00 AM ??? INR 1.5 04/17/10 7:15 AM ??? INR 1.3 04/16/10 6:00 AM Lab Results Component Value Date/Time ??? HGB 9.2* 04/18/10 6:50 AM ??? HGB 9.0* 04/17/10 7:15 AM ??? 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 Hypotension, resolved. Likely from hypovolemia due to large uop and minimal po intake. Now normalized after IVF and holding outpt meds. Stop IVF today, resume outpt meds of Bb and lasix as tolerated. Sinus tachycardia. Mild. Likely from hypovolemia. Asymptomatic, EKG without signs of ischemia, tropsneg x 3. CTA neg for PE 04/13/2010. TSH slightly elevated, T4 wnl. Hgb stable in mid9s. Was on Bb prior to surgery which was held when pressures dropped. Unlikely still seeing rebound tachycardia but I suppose it's a possibility. Restart Bb as pressures allow. Hx of BLE DVT on chronic anticoagulation. On therapeutic lovenox and coumadin. INR trending up. Reported hx of IVC filter placement but not noted on imaging. Will need to cont lovenox until INR >2 for two days, then OK to stop lovenox and cont coumadin alone. INR goal 2-3. Acute blood loss anemia. No hx of CAD. Stable in the 9s. Pressures and HRs as above, but less likelydriven by ABLA. Started iron tabs. Skin breakdown to buttock. At risk for skin breakdown given paraplegia/postop. Have asked wound RN to formally evaluate today. Frequent turns to support skin integrity. Have requested RN to page me when wound RN there so I can assess wound as well. Afebrile. HTN. Was on Bb and lasix as outpt, holding for now as above. Known intrathecal baclofen pump. Pump settings evaluated 04/12/2010 by PM&R and was working fine, next refill date was on/before 04/25/2010. HLD. Cont on statin. 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 EBl 150cc, GETA, no complications per operativereport however patient was started on pressors to maintain blood pressure and experienced respiratory failure unable to be weaned from ventilator so he was admitted to SICU postoperatively. DVT prophylaxis--on therapeutic enoxaparin and coumadin, pain management, activity per NSG. 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 Dispo - per NSG, considering TCU. OK to DC from medicine perspective, medicine orders in. More than 35 minutes; more than 50% of the time spent in coordinating care and counseling patient for above problems Criselda Rodriguez PA-C [facility] Medicine [phone] 04/18/2010 Radha Long - 04/18/2010 4:24 AM CDT [facility] Progress Note (Nursing) Identify/Problem(s): Activity Pain Skin integrity Desired Outcome(s): Patient will tolerate increasing activity Patient will obtain relief of pain Patients skin will remain intact Evaluation: Patient is able to turn and reposition with assist of 2, enc pt to stay off of back due to redness and blisters. Small blisters noted, these have remained intact. Vss, remains slightly tachy. Abdomen is firm, distended, is passing flatus, no further bm tonight. Offered pain meds frequently but he is declining. Plan: Turn and reposition frequently but stay off of back as much as able except when up in chair. Monitorvs, medicate prn for pain. Monitor skin and take all measures to keep skin intact. Discussed plan ofcare with patient and family. Radha Long RN --- End of Report --- Devon Hylton - 04/17/2010 10:30 PM CDT [facility] Progress Note (Nursing) Identify/Problem(s): Pain/skin status Desired Outcome(s): Comfort/skin will remain intact Evaluation: Pt c/o generalized body aches,medicated w/ TYlenol w/ good relief.Pt was up on the chair from start of shift til 1730.Had BM this evening,loose,brown.Patient Vitals in the past 8 hrs: BP Temp Temp src Pulse Resp SpO2 Height Wt - Scale 04/17/10 1942 112/73 mmHg 98.5 ??F (36.9 ??C) Oral 101 18 96 % - - 04/17/10 1556 103/62 mmHg 97.4 ??F (36.3 ??C) Oral 106 18 96 % - - Buttom redenned w/ some blistering noted,pt kept off his back and abd applied to cushion area.Wound nurse consulted. Plan: Cont to monitor comfort and monitor skin status. Devon Hylton RN --- End of Report --- omelia Duckworth - 04/17/2010 4:42 PM CDT [facility] Progress Note (Nursing) Identify/Problem(s): Activity Neuro Status Desired Outcome(s): Pt will increase activity will have optimal neuro status Evaluation: Pt dangled at bedside x2 for meals this shift positioned with max assist of two up to w/c toilet with max assist of 3 pt unable to have BM alert and oriented all shift took a nap this afternoon and slept soundly upon awakening pt c/o confusion slight disorientation appeared more clear after being awake for a bit Plan: Continue cares increase activity as tolerated monitor for signs of disorientation Romelia Kohli RN --- End of Report --- Romelia Kohli - 04/17/2010 3:21 PM CDT Problem: Falls Risk Goal: Moderate Risk (5-10): Fall Prevention I applied all active moderate risk falls prevention interventions. aTnia Brantley - 04/17/2010 2:05 PM CDT [facility] Care Management Wireless Retail Manager Initial Assessment Admission Date/Time: 04/11/2010 11:22 AM Attending MD: Maurice Baron Data Jie Cullen was referred to this Wireless Retail Manager for discharge planning. Chart reviewed, discussed with interdisciplinary team, as well as with patient and family. [facility] [191.9] (MALIG GANGA BRAIN NOS). Insurance: Payor: MEDICARE PART B ONLY [id number] Plan: MEDICARE PART B ONLY Product Type: Medicare Current Living Situation: Patient lives with their spouse. Support System: and children Services Involved: none, has been to Sister Kim in past Additional Data: Pt's primary MD is Dr. Loretta Mcmahan at the [facility] Coordination of Care and Referrals: Provided patient/family with options for dc planning. Barriers to Discharge: patient continues to require acute medical care Assessment Was able to meet with both pt and his this am. Introduced myself and the role of the CM. Pt lives with in a single level home without steps. Pt is wheelchair bound. He has a manual wc as wellas a motorized w/c. Pt has assist from and sliding board for transfers. He also has a round pole attached to his bed that he uses to change positions while in bed and to assist to a sitting position. Pt self caths and is on a bowel program. works about 3 hours per day, otherwise she is home with pt. Pt was able to fairly independent with upper extremities once in his wheelchair. Discussed with pt and the recommendations of tcu from PT and OT. They both really want pt to return home atdc. They feel just from yesterday, pt has become brighter and stronger and feel after another day ortwo he may be almost back to baseline. Pt states he would rather go home and have his son come over to work on transfers until pt able to do so with less assist. Pt and , Heather are open to home PT and home nurse for inr draws, vs, wound assessment. Pt has not had HC in past and have no agency preference. I told them I could contact his primary clinic to ask what agency they use for their pt's as to possibly stay in same system as his primary MD. Plan is to check back with pt and Heather in theam to see how pt doing with mobility and what their thoughts are related to dc needs and planning. Explained to them that we are recommending tcu, but this is only a recommendation, that they ultimately can make final decision. Went on to state that we want pt and to be safe at home and want themto feel safe with dc plan. to work with pt with transfers throughout today and they will let me know their thoughts in am. Call with questions. Addendum: If pt discharges home, will notify coumadin nurse at his primary clinic to update on inr'swhile here, coumadin and lovenox doses given, and when INR follow up is due. Pt and aware CM will do this for them if dc home. Plan Anticipated Discharge Date: 04/19 Anticipated Discharge Plan: tbd. Home with HC vs tcu. Plan for Follow Up: in am Report completed by Tania Brantley RN, Pager Number [phone] --- End of Report --- Trudi Locke - 04/17/2010 1:23 PM CDT [facility] IP Physical Therapy Progress Note PT Visit Room/Bed: 91159/1412956 Patient Seen: bedside Diagnosis: Encounter Diagnoses Code Name Primary? 458.9Q Hypotension Yes ??? 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 518.81 Acute Respiratory Failure ??? 785.0H Tachycardia ??? 453.40U DVT (Deep Venous Thrombosis) ??? 285.1B Acute Blood Loss Anemia ??? 401.9AE HTN (Hypertension) ??? 427.89C Sinus Tachycardia ??? V12.51G Personal History of DVT (Deep Vein Thrombosis) Pain: 6/10 upper back. Action Taken: patient willing to continue with therapy Perception/Cognition/Orientation: patient alert and patient oriented to person/self, place and date/time Action Taken: no action needed Toileting Needs: pt sitting on toilet upon arrival. Action Taken: patient assisted off toilet. Education: Provide support and encouragement and answered questions related to rehab course Provided instruction in sliding board transfers. Patient Position: in bed AM- pt seen bedside this am with OT for co-treatment. Pt in BR upon arrival. Pt required mod/max assist of 2 for toilet to w/c sliding board transfer. Pt then transferred from w/c to bed via SB transfer with moderate/max assist of 2 again. Pt's present and explained their transfer technique. Pt and his report they have a super pole which extends down from ceiling which allows increased use of UE's during transfers. Sit to supine transfer required moderate assist of 2. PM- pt seen again this pm after 2 attempts. Pt sound asleep initially and unable to arouse. Pt sitting up at the edge of bed upon arrival. Pt's reports pt is a little confused after waking up fromhis nap. Pt transferred bed to w/c via small sliding board with assist from and therapist. Pt'swife stood in front, assisted with SB placement and transfer while therapist assisted from behind tohelp scoot buttocks along board. Assessment- pt still requiring significant assist for transfers. Pt does have necessary equipment athome to maximize functional mobility ie) manual and power w/c, super pole, rolling shower chair, standing frame, etc.. However, anticipate pt will still need assist of 2 for transfers initially untilUE strength and activity tolerance improves. If d/c plan is soon, would recommend TCU stay, otherwise we'll cont to focus on transfer training with and pt during acute hospital stay. Plan- cont to follow daily. Amount of time spent in patient contact: AM: 30 minutes of co-treatment, PM: 15 minutes. Trudi Locke, PT Phone number is [phone] Pager: [phone] --- End of Report --- Abby Ellsworth - 04/17/2010 11:54 AM CDT [facility] Occupational Therapy Progress Note Treatment Summary: The pt was seen this AM at bedside. Pt was with nursing this AM due to needing to have BM. Pt was transferred supine to sit with MAX A of 2. Pt able to balance on EOB with MOD A of 1. Pt transferred via sliding board to w/c with MAX A of 2-3. Pt then transferred from w/c to toilet with MAX A of 2. Pt was left on toilet. Pt was then seen to co-tx with PT for back to bed activity. Pt transferred from toilet to w/c with MAX A of 2 and use of small sliding board and then from w/c to bed. Pt transferred sit to supine with MAX A of 1-2. Pt cleaned up and positioned in side upon leaving. Spouse present during session. Pain: no c/o pain during therapy activities Action Taken: none Activity Tolerance: Fair Education: Provided patient, family education, training, and/or instruction in the following areas as relevant to meaningful participation in daily occupations: role of occupational therapy and provided support and encouragement and answered questions related to rehab course. Patient and/or caregiver response to teaching: verbalized understanding Recommendations: Pt able to show increased use in BUE but continues required MAX A of 2 for transfers. Discussed withpt and spouse about return to home and challenges. Pt and spouse still would like to return to home.Encourage to assist with transfers while in hospital. Will follow in acute care 5 times per week. Amount of time spent in patient contact: 30 minutes - cotx Abby Ellsworth OTR/L (pager) OT Dept #: [phone] - OT Weekend Pager #: [phone] - [facility] Main #: [phone] --- End of Report --- Criselda Rodriguez - 04/17/2010 11:45 AM CDT [facility] Medicine Progress Note Date of service: 04/17/2010 Subjective: Feels well, pain improving between his shoulder blades from surgery. Denies f/c/n/v/cp/sob. Ate most of his breakfast this morning, reports good fluid intake as well. Small BM this am aftersuppository and enema. De La Cruz in. Objective: General: WDWN 64 yr male in NAD. Patient Vitals in the past 8 hrs: BP Temp Temp src Pulse Resp SpO2 Height Wt - Scale 04/17/10 0745 119/67 mmHg 98 ??F (36.7 ??C) Oral 107 18 96 % - - 04/17/10 0511 124/64 mmHg 97.7 ??F (36.5 ??C) Oral 107 16 95 % - - Exam: HEENT: eoms intact, MMM RESP: CTAB anterior CV: RRR (HRs 90s), no significant m/r/g ABD: +bs, soft, nt/nd EXTS: No motor or sensory to BLEs, 1-2+ edema to feet, moves BUEs NEURO: Alert and conversant Current meds reviewed. All labs reviewed. Lab Results Component Value Date/Time ??? HGB 9.0* 04/17/10 7:15 AM ??? HGB 9.3* 04/13/10 3:55 PM ??? 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 Hypotension, improving. Likely from hypovolemia due to large uop and minimal po intake. Started IVF yest, pressures stable. Eating and drinking better, decrease IVF today, follow pressures, cont to hold outpt BP meds. Sinus tachycardia. Mild. Likely from hypovolemia. Asymptomatic, EKG without signs of ischemia, tropsneg x 3. CTA neg for PE 04/13/2010. TSH slightly elevated, T4 wnl. Hgb stable in mid9s. Wean IVF as above, pain control. Hx of BLE DVT on chronic anticoagulation. On therapeutic lovenox and coumadin. INR trending up. Reported hx of IVC filter placement but not noted on imaging. Acute blood loss anemia. No hx of CAD. Stable in the 9s. Pressures and HRs as above, but less likelydriven by ABLA. Started iron tabs. HTN. Was on Bb and lasix as outpt, held right now given softer pressures. Known intrathecal baclofen pump. Pump settings evaluated 04/12/2010 by PM&R and was working fine, next refill date was on/before 04/25/2010. HLD. Cont on statin. 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 EBl 150cc, GETA, no complications per operativereport however patient was started on pressors to maintain blood pressure and experienced respiratory failure unable to be weaned from ventilator so he was admitted to SICU postoperatively. DVT prophylaxis--on therapeutic enoxaparin and coumadin, pain management, activity per NSG. 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 More than 35 minutes; more than 50% of the time spent in coordinating care and counseling patient for above problems Criselda Rodriguez PA-C [facility] [phone] 04/17/2010 Extended Day Teacher, Lucy Clemente - 04/17/2010 11:21 AM CDT [facility] NeuroSurgery Progress Note Did discuss with . and pt having concerns about going to a TCU. I informed her that if he can transfer safely and not injure himself or her he can go home. If he is unable to transfer safely he will need a TCU. Pt states he is feeling stronger today, and will try transferring without as much help to see if he can go home safely Vitals Temp (24hrs), Min:97.7 ??F (36.5 ??C), Max:98 ??F (36.7 ??C) No Data Recorded BP 119/67 Pulse 107 Temp(Src) 98 ??F (36.7 ??C) (Oral) Resp 18 Ht 5' 10 (1.778 m) Wt 104.327 kg (230 lb) SpO2 96% Exam Alert and oriented x 3, fluent and appropriate Incision clean and dry, appears stitches might have pulled through superior incision. No sign of infection No BM Labs Lab Results Component Value Date/Time ??? SODIUM 141 04/17/10 7:15 AM ??? HGB 9.0* 04/17/10 7:15 AM ??? PROTIME 18.6* 04/17/10 7:15 AM ??? 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 Baron Plan Depending on safety of transport, will most likely need TCU placement. Did speak with Tania, case investigator. INR not therapeutic, continue with Lovenox until INR 2-3 Repeat INR tomorrow No BM, try MOM or dulcolax suppository that are ordered Can also give prunes or prune juice Keep pt off buttocks for too long Hgb 9.0, but pt doing well no need for transfusion Lucy Parker PA-C --- End of Report --- Loretta Osman - 04/17/2010 7:54 AM CDT [facility] Progress Note (Nursing) Identify/Problem(s): Pain Desired Outcome(s): Pt will be comfortable Evaluation: Pt requested pain medications x1 during the night. Given percocets x1 and appeared to have slept well. Repositioned x3 during the night. Remained alert and oriented. VSS. Plan: Continue to monitor pt's pain and treat prn. Discuss plan of care Loretta Osman RN --- End of Report --- Malika Maradiaga RN - 04/16/2010 10:56 PM CDT [facility] Progress Note (Nursing) Identify/Problem(s): Neuro status Desired Outcome(s): Pt will have optimal neuro status Evaluation: At beginning of shift notified of difficulty waking pt. Pt woke with sternal rub and was disoriented. MD was in room. Pt returned to alert and oriented within one minute of waking up. Pt follows commands on BUE. PERRL. Pt dangled at edge of bed x 2 this evening. Pt complained of bilateral shoulder pain, medicated with 2 percocet and hot pack for comfort. On recheck pt denied pain. Pt given enema, incontinent of soft brown stool. Dressing is CDI. BP 112/74 Pulse 93 Temp(Src) 98 ??F (36.7 ??C) (Oral) Resp 16 Ht 5' 10 (1.778 m) Wt 104.327 kg (230 lb) SpO2 96% Plan: Continue to assess neuro status. Malika Maradiaga RN --- End of Report --- Anthony Genao - 04/16/2010 3:38 PM CDT [facility] Medicine Progress Note (MD) Date of service: 04/16/2010 Subjective: Was sleeping at the time I arrived in the room. Tried to wake him up but was unable to .O2 sats 91% on 3L NC O2. After multiple tries patient was able to wake up. Denies any CP, SOB. Pain in the back and the hip. Talking to patient's sister patient was able to sit on the side of the bed. Objective: General: Alert and oriented in NAD. Last vitals: BP 111/72 Pulse 99 Temp(Src) 98.3 ??F (36.8 ??C) (Oral) Resp 16 Ht 5' 10 (1.778 m) Wt 104.327 kg (230 lb) SpO2 100% Exam: HEENT: PEERLA. Moist mucosa. Neck: No JVD. Chest: CTA B Cardiovascular: S1 S2 audible. RRR. Abdomen: Obese but soft. NT> BS present. Extremities: trace edema. DP palpable. Neurological: Alert and oriented x2. Other: LABS: Results for orders placed during the hospital encounter of 04/11/10 (from the past 24 hour(s)) INR/PROTIME Component Value Range ??? PROTIME 16.0 (*) 12.0-14.5 (sec) ??? INR 1.3 - GLUCOSE, WHOLE BLOOD POC Component Value Range ??? GLUCOSE, WHOLE BLOOD 113 70-180 (mg/dl) ADD ON LAB ORDERS(SPECIMEN IN LAB) Component Value Range ??? ADD ON TEST R Additional Testing Ordered by - BASIC METABOLIC PANEL Component Value Range ??? BUN 10 7-20 (mg/dl) ??? SODIUM 136 135-145 (mmol/L) ??? POTASSIUM 3.6 3.5-5.1 (mmol/L) ??? CHLORIDE 100 98-107 (mmol/L) ??? CO2 30 22-30 (mmol/L) ??? GLUCOSE 147 70-180 (mg/dl) ??? CREATININE 0.74 0.66-1.25 (mg/dl) ? ? GFR, ESTIMATED >60.00 >60- (ml/min/1.73m2) ? ? GFR EST IF >60.00 >60- (ml/min/1.73m2) ??? CALCIUM 8.4 8.4-10.2 (mg/dl) ??? ANION GAP (CALC.) 6 3-11 (mmol/L) GLUCOSE, WHOLE BLOOD POC Component Value Range ??? GLUCOSE, WHOLE BLOOD 148 70-180 (mg/dl) BASIC METABOLIC PANEL Component Value Range ??? BUN 9 7-20 (mg/dl) ??? SODIUM 137 135-145 (mmol/L) ??? POTASSIUM 3.5 3.5-5.1 (mmol/L) ??? CHLORIDE 100 98-107 (mmol/L) ??? CO2 31 (*) 22-30 (mmol/L) ??? GLUCOSE 133 70-180 (mg/dl) ??? CREATININE 0.76 0.66-1.25 (mg/dl) ? ? GFR, ESTIMATED >60.00 >60- (ml/min/1.73m2) ? ? GFR EST IF >60.00 >60- (ml/min/1.73m2) ??? CALCIUM 8.6 8.4-10.2 (mg/dl) ??? 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 Hypotension: likely from hypovolemia. Is putting out large amount of urine. He has responded well toIVFs with stable BP. -due to large amount of urine output and limited fluid intake, will start him on NS @ 125ml/hr. [place] urine osmolality, urine sodium and s osmolality. --continue to hold anti-hypertensive as well as lasix with increasing intravascular volume Tachycardia: dd--hypovolemia. EKGSinus tachycardia no ischemic changes noted. He had 3 negative trops completed over the past 2 days. No reports of chest pain. TSH slightly elevated, T4 normal. --continue IVFs as above. --aim at adequate pain management RLE DVT on chronic anticoagulation: on enoxaparin therapeutic dose and coumadin started 04/13/10. INR 1.3. --INR in am. Acute blood loss anemia; hgb drop est 3g from preop value. He denies any chest pain, shortness of breath, severe fatigue.. No history of CAD. --recheck Hgb tomorrow. HTN: on BB, lasix as outpatient. Holding anti-hypertensive at this time with hypotension. Abnormal UA: reports 1-2 UTI annually while he has been on trimethoprim. UA with large Leuks, elevated WBC for which he may have chronic bacterial growth with self cath, however with recent surgery I will start cipro course, UC neg. 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 DVT prophyl axis--start prophylactic enoxaparin and coumadin, pain management, activity per NSG. Heme/onc consulted for further management with Ependymoma AMS: Likely from ativan and Neurontin and wearing out from this am acitivities. Continue to monitor. Report Completed by: Gena Genao MD Pager: [phone] Loretta Osman - 04/16/2010 7:01 AM CDT [facility] Progress Note (Nursing) Identify/Problem(s): Comfort Desired Outcome(s): Pt will be comfortable Evaluation: Pt did not request pain medication all night. Repositioned Q2 prn. Alert and oriented. VSS. No further episodes of confusion. Plan: Discuss plan of care. Loretta Osman RN --- End of Report --- Amanda Toledo - 04/15/2010 7:49 PM CDT [facility] Progress Note (Nursing) Identify/Problem(s): Pain management. Skin safety. Desired Outcome(s): Pt will be comfortable. Pt will have skin remain intact. Evaluation: Pt received bolus of NS and pt had headache before it was started. After it ran it his headache was gone. Pt had episode of confusion when he woke up per his and he reoriented. Doctor was notifiedof this. Pt was able to direct when he wanted to be turned. Pt was able to rest between cares. Pt given percocet around 1999 and his pain decreased. Patient Vitals in the past 8 hrs: BP Temp Temp src Pulse Resp SpO2 Height Wt - Scale 04/15/10 2100 89/62 mmHg - - 97 16 98 % - - 04/15/10 1600 89/51 mmHg 97.6 ??F (36.4 ??C) Oral 94 16 98 % - - Pt had BP checked after recieving pm meds which could lower BP. Pt will have BP rechecked at midnight. Pt's is in room and is able to assist with some cares. Pt's skin has remained intact. Plan: Continue to monitor vitals and note BP. Monitor for pain and provide comfort measures as needed. Turn and reposition as pt will allow. Monitor for any further confusion.Discussed plan of care with patient, family and provider. Amanda Lindsay RN --- End of Report --- Amanda Lindsay - 04/15/2010 7:46 PM CDT Problem: Falls Risk Goal: Moderate Risk (5-10): Fall Prevention I applied all active moderate risk falls prevention interventions. Amanda Lindsay - 04/15/2010 7:28 PM CDT [facility] MD Notified Note Name of MD notified: Dr. Danni Thornton Time of MD notification: 1900 hours and 15 minutes Reason: Pt was confused and took several minutes to reorient per . This was sophia and had neverhappened before to pt. was concerned about this sudden change. Pt returned to baseline after a few minutes. Response: Doctor made note of this. Planned on seeing pt either tomorrow or today if she comes in tonight. Amanda Lindsay RN --- End of Report --- Amira Ayon, LARISA - 04/15/2010 12:41 PM CDT [facility] IP Physical Therapy Progress Note INSTRUCTIONAL SPECIALIST Visit Number 1 04/15/2010 Room/Bed: [facility]/[id number] Patient Seen: bedside Diagnosis: Encounter Diagnoses Code Name Primary? 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 518.81 Acute Respiratory Failure ??? 785.0H Tachycardia ??? 458.9Q Hypotension ??? 453.40U DVT (Deep Venous Thrombosis) ??? 285.1B Acute Blood Loss Anemia ??? 401.9AE HTN (Hypertension) Pain: no c/o pain Action Taken: no action needed Perception/Cognition/Orientation: patient alert Action Taken: no action needed Toileting Needs: RN just passed an enema Action Taken: patient assisted to the commode Education: Provide education regarding role of physical therapy during hospitalization Provide support and encouragement and answered questions related to rehab course Provided instruction in adaptive equipment use- sliding board transfer, bed mob Patient Position: pt on the commode, RN and pt's present, with pt Treatment: Pt was seen OW for Physical Therapy, for continued mobility training. Pt in bed upon arrival and waswilling to participate and reports that his RN wants him to get up to the commode, as RN will be passing an enema. Pt transferred supine to side to sit on the EOB with max A of 2, for BLE's and for upper body, with cues to push up with BUE's. Pt sat on the EOB with fair sitting balance, using 1-2 UE's to support self. Pt leaned to his R, while the sliding board was placed, with mod A to lean and right self. Pt transferred bed to commode with the sliding board, max A of 3 and extra time. This remote mortgage underwriter left to work with another pt, and returned about 15 minutes later to assist with transferring off the commode. Pt was still requesting more time. RN reports that he is able to find the assist needed and between the pt and pt's - they can help direct the transfer d/t previous experience. Assessment/Plan: Pt tolerated PT well, with no adverse effects, for activities performed. Pt continues to required max A of 3 and a sliding board for transfers. Will cont to follow and assess d/c needs. Pt may benefit from TCU stay if transfers cont to require more than assist of one. Rec pt transfer out of bed via large sliding board into amadeo type chair with assist of nursing in addition to therapy out of bed transfers to increase out of bed tolerance. Amount of time spent in patient contact: AM: 15 minutes Amira Ayon PTA Phone number is [phone] Pager: [phone] --- End of Report --- Esmer Richardson - 04/14/2010 10:19 PM CDT [facility] Progress Note (Nursing) Identify/Problem(s): Pain activity Desired Outcome(s): Pt will have adequate pain control Pt will have increased activity Evaluation: VSS, continues to be hypotensive and slightly tachy, tolerating reg diet, dangled at side of bed with assist of 2, Wound Treatment Rn rep came to see pt and refit figure 8 brace, pt c/o of increased pain when brace applied with numbness in his right hand, brace removed and pain relieved. Turning pt q 2 hours, surgical dressing CDI, offered pt shower, declined and requested doing it in the morning, states he is tired this evening. IJ intact and patent. De La Cruz putting out dark yellow urine in adequate amounts. Discussed plan of care with patient and family. Plan: Continue to monitor, medicate for pain as needed, turn q 2 hours, increase activity. Esmer Blue RN --- End of Report --- SkylaJonesangelina Kathleen - 04/14/2010 4:55 PM CDT [facility] Complementary Care Therapy Note Complementary Care Therapy Massage?: yes Complementary Care Floor Location: s10 Therapy explained and offered to patient/family: yes Verbal consent given per patient/family: yes Time with Patient: 15 min Pain Pre-Therapy: 0 Pain Post-Therapy: unable to rate Anxiety Level Pre-Therapy: 0 Anxiety Level Post-Therapy: unable to rate Nausea Level Pre-Therapy: 0 Nausea Level Post-Therapy: unable to rate Patient Comments/Feedback: - Assessment Patient referred to Complementary Care by RN on s10. Prior to entering the room, this remote mortgage underwriter reviewed the patient's chart, and consulted with the patient's nurse. Upon entering the room, this remote mortgage underwriter introduced herself, explained massage therapy, and asked the patient if he would like to receive massage therapy today. Pt states yes, requests massage to shoulders and R arm. Pt reports that R arm is falling asleep. Pt denies pain/anxiety/nausea. Massage provided R shoulder and R arm, pt reclining in bed, pressure level 2 (gentle gliding, kneading, compression). Goal: increase relaxation and feelings of well-being. Massage ends when brace man arrives. This remote mortgage underwriter informs RN of pt's report that R arm is falling asleep. Plan Complementary Care Therapies are available to this patient while an inpatient, as schedule allows. Thank you for referring this patient to Complementary Care Therapies. Report Completed by: SIMON Garcia --- End of Report --- Tania Brantley - 04/14/2010 4:06 PM CDT [facility] Wireless Retail Manager Progress Note Data: Attempted to meet with pt this afternoon. Pt had eyes open when I was introducing myself to him. Asked pt if it was okay to speak with him. He did not say anything and closed his eyes. He is unable to engage in conversation. I did inform bedside RNEsmer of this. I also attempted to phone pt's . I had to leave a vm as I did yesterday. Have not received a call back. Missed earlier. PA in with pt and early afternoon, when I returned had already left. Assessment: In reviewing chart this afternoon, PT and OT state pt [place] require [place] [facility] for continued rehab as at present he is requiring max assist of two with moving in bed and transfers. This is not at pt's baseline. When I left vm with pt's and did mention tcu. In vm that I left with her, I asked that she ask to speak with weekend CM to discuss possible tcu and facilities, should she be here over weekend. Otherwise I will try to meet with pt and Saturday am. Plan: Pt will not be discharging over the weekend. Pt may need [place]cu [place] [facility]. Need to discuss with pt and , have not been able to reach and pt too sedated for conversation at this time. Follow up on Saturday. Report completed by Tania Brantley RN, Pager Number [phone] --- End of Report --- Carlene Silver RN - 04/14/2010 3:36 PM CDT Problem: Falls Risk Goal: Moderate Risk (5-10): Fall Prevention I applied all active moderate risk falls prevention interventions. AT Carlene Silver RN - 04/14/2010 3:00 PM CDT [facility] Progress Note (Nursing) Identify/Problem(s): Pain. Activity. Desired Outcome(s): Patient will have optimal pain control. Patient will increase activity Evaluation: Patient is alert and oriented x4. C/o pain on bilateral shoulders, had schedule flexeril, Lidocaine patches and PRN Percocet with relief stated. ROM done. Coughs spontaniously. Encourage IS use, up to 2500. Denies any headache, SOB or respiratory distress. Incision dressing is clean, dry and intact. Repositioned for comfort. De La Cruz patent. Had US of BLEs done. Up in the chair with PT. Patient Vitals in the past 8 hrs: BP Temp Temp src Pulse Resp SpO2 Height Wt - Scale 04/14/10 1100 111/67 mmHg 97.8 ??F (36.6 ??C) Oral 110 18 91 % - - 04/14/10 0700 102/60 mmHg 98.5 ??F (36.9 ??C) Oral 110 17 98 % - - Plan: Will continue to assess and medicate as needed for pain. Will continue to encourage increase activity. Carlene Silver RN --- End of Report --- Cecile Browne - 04/14/2010 1:34 PM CDT [facility] Progress Note Date of Service: 04/14/2010 Subjective: Feeling better today than yesterday, admits to diaphoresis this morning without chest pain, nausea, vomiting, fevers or chills. BP improved from yesterday, no lightheaded, no change in MS. He does note mild dizziness with change in position. Pain currently controlled, most of his pain has been located in bilateral upper shoulders. UA with significant bacteria, UC from 2 days ago negative.He reports that he has 1-2 UTIs yearly, on prophylactic trimethoprim, signs and symptoms of UTIs usually include fevers and low back pain and occasionally sediment in urine. Denies chest pain, shortness of breath, fevers, chills, nausea, or vomiting. BP 111/67 Pulse 110 Temp(Src) 97.8 ??F (36.6 ??C) (Oral) Resp 18 Ht 5' 10 (1.778 m) Wt 104.327 kg (230 lb) SpO2 91% Physical Exam: General Appearance: 64 yr male in NAD sitting upright in chair. HEENT: PERRL. Sclera clear without discharge. Oral mucosa dry. Nares patent without discharge. Neck: trachea midline Respiratory: Regular respirations. Clear to auscultation bilaterally, no whezzing, rhonci, or rales Cardiovascular: elevated rate and regular rhythm. Normal S1, S2. No murmurs, rubs or gallops. Abdomen: firm, hypoactive bowel sounds. Non-tender, distended. : de la cruz in place with light yellow clear urine. Musculoskeletal: DP/radial pulses 2/4. Not able to palpate R popliteal pulse. RLE with 2+ non-pitting edema. LLE with 1+ non-pitting edema. Skin: warm, moist, normal turgor without apparent rashes, Neurologic: alert and conversant, neuro intact from neck up. All Labs reviewed: Last Chem10 results: Lab Results Component Value Date/Time ??? SODIUM 136 04/14/10 10:00 AM ??? K 3.2* 04/14/10 10:00 AM ??? CHLORIDE 101 04/14/10 10:00 AM ??? CO2 31* 04/14/10 10:00 AM ??? BUN 10 04/14/10 10:00 AM ??? CREATININE 0.85 04/14/10 10:00 AM ??? GLUCOSE 105 04/14/10 10:00 AM ??? CA 7.7* 04/14/10 10:00 AM ??? ANIONGAP 5 04/14/10 10:00 AM ??? MG 1.8 04/13/10 5:45 AM ??? PHOS 3.2 04/13/10 5:45 AM Lab Results Component Value Date/Time ??? INR 1.1 04/14/10 6:00 AM ??? INR 1.0 04/11/10 10:30 PM ??? 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 Hypotension: dd hypovolemia, cardiac, anemia, sepsis, medications, adrenal insufficiency, PE. He hasresponded well to IVFs with stable BP. hgb stable yesterday. --continue IVF --continue to hold anti-hypertensive as well as lasix with increasing intravascular volume Tachycardia: dd--hypovolemia,uncontrolled pain, acute anemia, medications, sepsis, PE. EKGSinus tachycardia no ischemic changes noted. He had 3 negative trops completed over the past 2 days. No reportsof chest pain. TSH slightly elevated, T4 normal. --continue IVFs --aim at adequate pain management RLE DVT on chronic anticoagulation: prophylactic enoxaparin and coumadin started yesterday. --INR in am. Acute blood loss anemia; hgb drop est 3g from preop value. He denies any chest pain, shortness of breath, severe fatigue.. No history of CAD. --no indication for blood transfusion at this time HTN: on BB, lasix as outpatient. Holding anti-hypertensive at this time with hypotension. Abnormal UA: reports 1-2 UTI annually while he has been on trimethoprim. UA with large Leuks, elevated WBC for which he may have chronic bacterial growth with self cath, however with recent surgery I will start cipro course, UC pending. DC cipro if UC comes back negative. 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 DVT prophyl axis--start prophylactic enoxaparin and coumadin, pain management, activity per NSG. Heme/onc consulted for further management with Ependymoma CORINA LeeC [facility] [phone] Total time spent was 35 mintues, >50% was in direct pt contact and C&C of the above issues. Trudi Locke - 04/14/2010 12:54 PM CDT [facility] IP Physical Therapy Progress Note PT Visit Room/Bed: 84044/8671046 Patient Seen: bedside Diagnosis: Encounter Diagnoses Code Name Primary? 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 518.81 Acute Respiratory Failure Pain: 05/20, pt does report some improvement in shoulder pain as compared to yesterday. Action Taken: patient willing to continue with therapy Perception/Cognition/Orientation: patient alert and patient oriented to person/self, place and date/time Action Taken: no action needed Toileting Needs: no needs Action Taken: N/A Education: Provided instruction in transfer expectations. Patient Position: in wheelchair bedside Pt was seen bedside this am with OT for co-treatment. Pt agreeable to participate. Pt just returned from US with reports of blood clots in R LE per pt report. This remote mortgage underwriter spoke with nursing who received clarification that out of bed activity remains appropriate. Pt rolled in bed to tone shorts with moderate assist of 2. Supine to sit transfer performed with mod assist of 2. Pt needing variable assistfor static sitting balance at the edge of bed moderate to close SBA. Pt then transferred via small sliding board with max assist of 2 and min assist of another from bed to w/c. Pt attempting to participate with UE's throughout transfer. Pt tolerated 1 hour sitting upright in w/c and was then assisted back to bed using this same technique. Pt required max assist of 2 and also assist from pt's to stabilize SB throughout. Sit to supine required max assist of 2. Plastic SB issued for home. Assessment- pt very fatigued following time out of bed. B UE pain currently limits pt's ability to fully participate in transfers. Will cont to follow and assess d/c needs. Pt may benefit from TCU stayif transfers cont to require more than assist of one. Rec pt transfer out of bed via large sliding board into amadeo type chair with assist of nursing in addition to therapy out of bed transfers to increase out of bed tolerance. Plan- cont to follow. Amount of time spent in patient contact: AM: 15 minutes co-treat with OT PM: 15 minutes Trudi Locke PT Phone number is [phone] Pager: [phone] --- End of Report --- Abby Ellsworth - 04/14/2010 12:07 PM CDT [facility] Occupational Therapy Progress Note Treatment Summary: The pt was seen this AM at bedside to co-tx with PT. was present. Pt was dependent to don shorts and shoes. assists at baseline at home. Pt able to roll in bed with MOD A of 2. Pt transferredsupine to sit with MAX A of 2. Pt needed MAX A initially for sitting balance but then was able to maintain with CGA-min A. Pt states he shoulder pain would catch and pt would extend needing MAX A forbalance. Pt transferred to chair via small sliding board and MAX A of 2-3. Pt moving BUE more today,compared to yesterday still has decreased ROM at shoulders. Pt in w/c upon leaving, present andcall light within reach. Pain: patient describes pain as in shoulders Action Taken: patient agreed to continue therapy Activity Tolerance: Fair Education: Provided patient, family education, training, and/or instruction in the following areas as relevant to meaningful participation in daily occupations: provided support and encouragement and answered questions related to rehab course. Patient and/or caregiver response to teaching: verbalized understanding Recommendations: The patient would benefit from ongoing Occupational Therapy for 30 minutes daily for ~7 more days tomeet therapy goals. Will follow in acute care 5/6 times per week for UE strengthening, adl's and functional mobility. Amount of time spent in patient contact: 30 minutes co-tx (15 minutes billable OT time) Abby Ellsworth OTR/L (pager) OT Dept #: [phone] - OT Weekend Pager #: [phone] - [facility] Main #: [phone] --- End of Report --- Archana Pace - 04/14/2010 11:20 AM CDT [facility] Meat Team Member Department Progress Note Clerk Television Production Notes: Ongoing supportive visit with Heather this morning while Jeff was down in [place] and then also with Jose Maneudy his return. 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 Jeff appears to be much improved from my initial visit with them the day after his surgery. They continue to appreciate outside plant cable engineer presence, support and prayers as well as assembly line robot operator visits. Plan: Meat Team Member remains available to pt and/or family for spiritual and emotional support as needed or requested. Report Completed by: Archana Pace, [facility] Staff Clerk Television Production --- End of Report --- Brittny Jasso - 04/14/2010 9:59 AM CDT [facility] NeuroSurgery Progress Note Date: 04/14/2010 Vitals Temp (24hrs), Min:97.9 ??F (36.6 ??C), Max:98.7 ??F (37.1 ??C) No Data Recorded Exam Diaphoretic this AM. Has just been working on IS. Denies chills. Awake, alert. No change in neuro exam. Bilateral shoulder soreness persists but is improved from yesterday. De La Cruz in place. Working with PT/OT. Started on prophylactic Lovenox yesterday and Coumadin was restarted by medicine team. Labs Lab Results Component Value Date/Time ??? PROTIME 14.7* 04/14/10 6:00 AM ??? INR 1.1 04/14/10 6:00 AM Medications Current hospital medications Medication Dose Route Frequency ??? acetaminophen (aka TYLENOL) tablet 325-650 mg 325-650 mg Oral Q4H PRN ??? atorvastatin (aka LIPITOR) tablet 40 mg 40 mg Oral Daily ??? baclofen (aka LIORESAL) tablet 20 mg 20 mg Oral BID PRN ??? bisacodyl (aka DULCOLAX) suppository 10 mg 10 mg Rectal DAILY PRN ??? citalopram (aka CELEXA) tablet 40 mg 40 mg Oral Daily ??? cyclobenzaprine (aka FLEXERIL) tablet 10 mg 10 mg Oral BID ??? docusate sodium (aka ENEMEEZ) enema 1 Enema 1 Enema Rectal Daily ??? enoxaparin (aka LOVENOX) injection 40 mg 40 mg SC Q24H ??? gabapentin (aka NEURONTIN) capsule 200 mg 200 mg Oral TID ??? insulin regular (aka humULIN R, novoLIN R) injection 2-12 Units 2-12 Units SC PRN based on BloodSugar ??? lidocaine (aka LIDODERM) 5 % 2 Patch 2 Patch Transdermal Daily ??? LORazepam (aka ATIVAN) tablet 1 mg 1 mg Oral TID ??? magnesium hydroxide (aka MILK OF MAGNESIA) oral liquid 30 mL 30 mL Oral DAILY PRN ??? MORphine injectable 1-4 mg 1-4 mg IV Q2H PRN ??? NaCl 0.9 % infusion 1,000 mL 1,000 mL IV Continuous ??? ondansetron (aka ZOFRAN) injection 4 mg 4 mg IV Q6H PRN ??? oxycoDONE-acetaminophen (aka PERCOCET) 5-325 MG tablet 1-2 Tab 1-2 Tab Oral Q4H PRN ??? patient's own pump IV Continuous ??? polyethylene glycol 3350 (aka GLYCOLAX) powder 17 g 17 g Oral Daily ??? remove lidocaine patch 1 Each 1 Each Topical At Bedtime ??? senna (aka SENOKOT) tablet 8.6 mg 1 Tab Oral QID ??? trimethoprim (aka TRIMPEX) tablet 100 mg 100 mg Oral Daily ??? 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 Baron, acute blood loss anemia Plan Family members present during rounds this morning. Updated on patient's condition/plan. 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 Continue PT/OT. Goal to get OOB today. Please help patient take a shower. Cover incision with waterproof dressing and then redress with clean gauze dressing after shower. Leave de la cruz in place today. Bowel regimen. Figure 8 brace to be delivered today. Will recheck LE dopplers. Appreciate medicine team assistance with medical management. I, Brittny Jasso, RN, am serving as a scribe to document services personally performed by Dr. Maurice Baron. All data has been reviewed by Dr. Maurice Baron. Brittny Jasso, RN, ACNS-, CNRN Neuroscience Clinical Nurse Specialist [phone] --- End of Report --- Maurice Baron - 04/14/2010 9:59 AM CDT I have examined the patient and reviewed the plan of care and agree with the previous note. Maurice Baron MD 04/14/2010, 11:19 AM Halina Curry RN - 04/14/2010 4:42 AM CDT [facility] Progress Note (Nursing) Identify/Problem(s): Hypotensive and tachycardic Desired Outcome(s): Pt vitals will be stable for patient Evaluation: Pt BP is 105/64 and HR 115. Pt taken off Lasix and Vitals have been lower than this on previous shifts. Plan: Continue to monitor pt vitals. Discussed plan of care with patient. Halina Curry RN --- End of Report --- aHlina Curry RN - 04/14/2010 2:34 AM CDT Problem: Falls Risk Goal: Moderate Risk (5-10): Fall Prevention I applied all active moderate risk falls prevention interventions. Esmer Richardson - 04/13/2010 10:37 PM CDT [facility] Progress Note (Nursing) Identify/Problem(s): Hypotension Tachycardic Desired Outcome(s): Vital signs will be stable Evaluation: Pt running hypotensive though given fluid flush on days, MDs aware and running labs, EKG and CT, awaiting results. Tolerating clear liquids, LS clear, pos BS, A/O, turning for comfort, midline dressingon back CDI, continues to complain of bilat shoulder pain, medicated with percocet as needed. NS infusing at 125. De La Cruz putting out adequate amounts of urine. BLE edematous, teds and pneumos in place. Discussed plan of care with patient and family. Plan: Continue to monitor, medicate for pain as needed, monitor VS, await test results. Esmer Blue RN --- End of Report --- Carlene Silver RN - 04/13/2010 3:00 PM CDT [facility] Progress Note (Nursing) Identify/Problem(s): Pain. Desired Outcome(s): Patient will have optimal pain control. Evaluation: Patient is alert and oriented x4. C/o pain on bilateral shoulders, had schedule flexeril, Lidocaine patches and warm pack and PRN Morphine used with relief stated. ROM done. Patient moves UEs strong, no movement on LEs, patient is paraplegic with no feelings on LEs. Encourage IS use, up to 2500. Patient still unable to tolerate HOB higher than 20 degrees. Denies any headache, SOB or respiratory distress. Incision dressing changed, site is clean, dry and intact. Repositioned for comfort. BP 87/51, 85/52, denies any headache, dizziness. Dr Candelaria was notified, 500cc Fluid flush given and recheck is 89/51. ROXY Browne was text with result. Dorothy patent with high output and MD aware. PM nurse updated to F/U. Patient Vitals in the past 8 hrs: BP Temp Temp src Pulse Resp SpO2 Height Wt - Scale 04/13/10 1400 89/51 mmHg - - 107 - - - - 04/13/10 1154 85/52 mmHg - - - - - - - 06/03/10 1153 87/51 mmHg 98.1 ??F (36.7 ??C) Oral 112 18 96 % - - 04/13/10 0700 106/68 mmHg 98.2 ??F (36.8 ??C) Oral 114 18 99 % - - Plan: Will continue to assess and medicate as needed for pain. Carlene Silver RN --- End of Report --- Tania Brantley - 04/13/2010 2:01 PM CDT [facility] Care Management Missed Visit Admission Date/Time: 04/11/2010 11:22 AM Attending MD: Maurice Baron's chart reviewed and discussed with interdisciplinary team. Reason for Attempted Visit: discuss dc planning. Reason Unsuccessful in Contacting Patient: patient sleeping x2. Attempted to phone to discuss dc planning. Had to leave vm, did leave my phone number requesting that she give me a call. So far, nocall back. Per PT notes of today, pt will likely be safe to return home. Wireless Retail Manager will attempt to follow up with patient/family in am vs later today. Report completed by Tania Brantley RN, Pager Number [phone] --- End of Report --- Trudi Locke - 04/13/2010 1:35 PM CDT [facility] IP Physical Therapy Progress Note PT Visit Room/Bed: 97159/2855318 Patient Seen: bedside Diagnosis: Encounter Diagnoses Code Name Primary? 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 518.81 Acute Respiratory Failure Pain: 4/10 Action Taken: patient willing to continue with therapy Perception/Cognition/Orientation: patient alert and patient oriented to person/self, place and date/time Action Taken: no action needed Toileting Needs: no needs Action Taken: N/A Education: Provide support and encouragement and answered questions related to rehab course Patient Position: in bed Pt seen again this pm. Pt reporting significant LE swelling (poximal to knees) R > L LE. Pt transferred supine to sit using log roll technique with max assist of one and min assist of another. Pt sat up at the edge of bed x 5+ min with min assist for balance. Encouraged IS use while sitting up x 5 reps. Sit to supine required mod/max assist of one. Pt was positioned in L sidelying position at the end of session. Assessment- fair+ tolerance to sitting at EOB. Anticipate pt will return home with assist from if she is able to manage with transfers once medically stable. Plan- cont to follow daily, progress to sliding board transfer next session if tolerable. Amount of time spent in patient contact: PM: 15 minutes Trudi Locke PT Phone number is [phone] Pager: [phone] --- End of Report --- Brittny Jasso - 04/13/2010 11:52 AM CDT [facility] NeuroSurgery Elective Spine Progress Note Date: 04/13/2010 Vitals Temp (24hrs), Min:98 ??F (36.7 ??C), Max:98.6 ??F (37 ??C) Mean Arterial Pressure (MAP) Av.8 MM HG Min: 55 MM HG Max: 97 MM HG Exam Patient is awake, alert. Working with PT, at bedside. Reports pain and tightness across both shoulders. Does not note any neuro changes postop. Has been tolerating HOB elevated in bed. Back dressing is dry and intact. Hypotensive last evening - resolved this AM. Afebrile. 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 Baron, acute blood loss anemia Plan Family members present during rounds this morning. Updated on patient's condition/plan. PT/OT. PM&R consult. Figure of 8 brace. If causes incisional discomfort, OK to not use. Change dressing today and daily. Will add additional oral pain medications to help manage postop pain. DC bedrest. OK to be out of bed with assistance. Start prophylactic Lovenox today and resume Coumadin. Will ask medicine team for help managing anticoagulation. Plan to recheck hemoglobin and platelets in 2-3 days. I, Brittny Jasso RN, am serving as a scribe to document services personally performed by Dr. Maurice Baron. All data has been reviewed by Dr. Maurice Baron. Brittny Jasso RN, ACNS-, CNRN Neuroscience Clinical Nurse Specialist [phone] --- End of Report --- Maurice Baron - 04/13/2010 11:52 AM CDT I have examined the patient and reviewed the plan of care and agree with the previous note. Maurice Baron MD 04/14/2010, 11:19 AM Martha Thomas - 04/13/2010 10:03 AM CDT [facility] PM&R Progress Note () Date of service: 04/13/2010 Diagnosis: Encounter Diagnoses Code Name Primary? 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 518.81 Acute Respiratory Failure SCI and residual spasticity. Patient Active Hospital Problem List: * No active hospital problems. * SUBJECTIVE: feeling much better this morning, pain is better control. Continues with spasms in the bilat shoulders , neck and trap pain when moved and also in the mid back and arms. Minimal LE spasms. Patient is much more comfortable today. No other issues. Per and patient he has bowel program every other day and he does self cathing. Some chronic dependent edema in bilat LE. OBJECTIVE: Patient Vital Signs in the past 24 hrs: Height Wt - Scale Temp Temp src Pulse BP Resp SpO2 Oximetry Done On 04/13/10 0700 - - 98.2 ??F (36.8 ??C) Oral 114 106/68 mmHg 18 99 % O2 04/13/10 0325 - - 98.4 ??F (36.9 ??C) Oral 116 102/61 mmHg 18 98 % O2 04/13/10 0123 - - - - 118 84/44 mmHg - - - 04/12/10 2300 - - 98.6 ??F (37 ??C) Oral 116 88/52 mmHg 18 97 % O2 04/12/10 2135 - - 98.3 ??F (36.8 ??C) Oral 119 105/58 mmHg 16 98 % O2 04/12/10 1800 - - 98 ??F (36.7 ??C) Oral - - - - - 04/12/10 1700 - - - - 111 107/64 mmHg 20 98 % O2 04/12/10 1600 - - 98.5 ??F (36.9 ??C) Oral 108 103/70 mmHg 18 99 % O2 Gen: No acute distress, pleasant and cooperative Abd: Abdomen soft, obese, nontender Extremities: edema bilat LE above knees chronic per his . Neuromuscular: some UE function, but patient in pain at least 3/5 in bilat shoulders and arms, hand4/5 with spasms noted in the R forearm and hand. LE tone is0/4. Sensory level is T5. Patient Glucose Level in the past 24 hrs: POCT Glucose (mg/dL) POCT Glucose Out of Range 04/12/10 1600 130 MG/DL - 04/12/10 1230 145 MG/DL - Labs: Lab Results Component Value Date/Time ??? INR 1.0 04/11/10 10:30 PM ??? SODIUM 137 04/13/10 5:45 AM ??? K 3.7 04/13/10 5:45 AM ??? BUN 18 04/13/10 5:45 AM ??? CREATININE 0.80 04/13/10 5:45 AM ??? GLUCOSE 101 04/13/10 5:45 AM ??? HGB 9.3* 04/13/10 5:45 AM ??? PLTS 141* 04/13/10 5:45 AM Procedure note: After verbal consent to increase dose obtained from patient and : Patient with pump located in the R lower abdominal quadrant. Baclofen pump interrogated: Last change on 04/13/2010 Pump serial number: [id number] Infusion drug: Baclofen Concentration: 1,000 mcg/ml Infusion mode: simple continuous Dose per day: increased by 10% to 249.8 mcg/day [place] volume 4.4 ml Low reservoir alarm volume 1.5 ml Refill interval: 11 days Alarm date: 04/24/2010 Alarms enabled. 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 Spasticity. ITB baclofen dose increased today. ITB was interrogated with new settings per above. Cont with oral baclofen. Lidoderm patches to bilat shoulder trap area, ice pack, or heat. PT and OT for mobilization. Will follow. Martha South MD --- End of Report --- Radha Long - 04/13/2010 6:27 AM CDT [facility] Progress Note (Nursing) Identify/Problem(s): Low blood pressure, tachycardia Pain Activity tolerance Desired Outcome(s): Patients blood pressure will return to baseline, heart rate will diminish Patient will obtain optimal level of comfort and tolerate increasing activity Evaluation: Patients blood pressure was low at start of shift, Dr Watson notified, NS bolus given as ordered. Blood pressure improved slightly, heart rate remained tachycardic. Dr Watson again notified and shestated this was OK, did order maintainance fluid to to run. Hgb checked and results called to , labs redrawn this am. Patient complains of severe bilateral shoulder pain and stiffness. Given morphinex3 , tylenol x1, turned and repositioned q 2 hours, range of motion done x3 and warm packs applied to shoulders with some relief in pain but this is temporary. Cms of upper ext is intact, is a para with no feeling from chest down. Taking po fluids without complaint, de la cruz with large urine output. Dressing upper back with bloody shadow. Pt is unable to tolerate HOB increased beyond only 15-20 degrees.Denies headache. Noted to have generalized edema, most notably in bilateral LE. Plan: Monitor vs closely and notify drs if remains low. Turn and reposition frequently, frequent ROM and use warm packs as requested. Aggressive pulmonary toilet. . Discussed plan of care with patient, family and provider. Radha Long RN --- End of Report --- Radha Long - 04/13/2010 2:58 AM CDT [facility] MD Notified Note Name of MD notified: Mandy Watson Time of MD notification: 0200 hours and 15 minutes Reason: Blood pressure is 88/44, hr 118 , needs more for shoulder pain Response: Give bolus of ns, check hgb, ordered tylenol, call back if bolus does not improve vs. Radha Long RN --- End of Report --- Esmer Richardson - 04/12/2010 10:48 PM CDT [facility] Progress Note (Nursing) Identify/Problem(s): pain Desired Outcome(s): Pt will have adequate pain control Evaluation: VSS, LS clear, pos BS, A/O, tolerating sips with meds, de la cruz in place and putting out concentrated urine, MS given for pain, pt reports adequate relief. BUE strong. IJ running NS at 100. Neuros intact.Turning q 2 hours. Family at bedside. Discussed plan of care with patient and family. Plan: Continue to monitor, medicate for pain as needed, turn q 2 hrs, IV antibiotics. Esmer Blue RN --- End of Report --- Henrique Wyatt - 04/12/2010 5:34 PM CDT Problem: Falls Risk Goal: Low Risk (0-4): Fall Prevention I applied all active low risk falls prevention interventions. Ephraim Cai - 04/12/2010 2:53 PM CDT [facility] Progress Note (Nursing) Identify/Problem(s): Pain control,finger numbness,shoulder stiffness Desired Outcome(s): Pain will be controlled with Morphine and shoulders and fingers will improve Evaluation: Left and right fingers numb,shoulder stiffness improved with massage,Dr aware of numbness and will evaluate later,additional dose of Morphine 4mg IV given/Dr,,arms placed in multiple positions with some minimal relief Plan: Pain control will improve and numbness will be followed Ephraim Cai RN --- End of Report --- Johan Montenegro - 04/12/2010 2:36 PM CDT [facility] ELECTROMECHANICAL EQUIPMENT ASSEMBLER NOTE - The patient received the Sacrament of the Sick (anointing) today. SHANNON Bolanos Archana Pace - 04/12/2010 2:35 PM CDT [facility] Meat Team Member Department Progress Note Reason for Visit Initial assessment for spiritual and emotional support needs for pt/family during this hospitalization. Pt is post-op day 1 from spine surgery. He is experiencing some pain this afternoon which RN is working on getting under control. Pt has had multiple surgeries for the same issue. Patient/Family Pt/ live in [place], [place]. stayed at the hospital but may go home this evening. Other visitors have been in/out to see pt. Resources/Support System Family, friends and lucia community provide a strong foundation for Jeff. Spiritual/Mu-Ism Jeff is appreciative of prayers, they have notified their [place] assembly line robot operator and pt would like to receivethe sacrament of the sick. Interventions Offered I offered supportive listening, presence, prayers for healing/strength, contacted the [facility] assembly line robot operator for the sacrament of the sick, informed pt/family of ongoing outside plant cable engineer availability. Coping Jeff is focused on his pain at this time so assessment is limited. Pt/family appear to be coping appropriately at this time; they have extensive experience from previous surgeries. Plan Meat Team Member will continue following for ongoing spiritual and emotional support to pt/family. Report completed by: Archana Pace, [facility] Staff Clerk Television Production --- End of Report --- Britni Barfield - 04/12/2010 12:19 PM CDT Problem: Falls Risk Goal: Low Risk (0-4): Fall Prevention I applied all active low risk falls prevention interventions. Abby Ellsworth - 04/12/2010 11:22 AM CDT [facility] Occupational Therapy Missed Visit Evaluation attempted today. Unable to start evaluation due to: pt just extubated and on flat bedrest. Will attempt evaluation again as soon as possible. Abby Ellsworth OTR/L (pager) OT Dept #: [phone] - OT Weekend Pager #: [phone] - [facility] Main #: [phone] --- End of Report --- Trudi Locke - 04/12/2010 11:15 AM CDT [facility] Physical Therapy Missed Visit Physical Therapy attempted to see patient today, 04/12/2010, for evaluation. Unable to see patient forthis reason: Pt just extubated and on flat bedrest at all times. Will attempt again tomorrow. Turdi Locke, PT [phone] --- End of Report --- Trudi Locke - 04/12/2010 9:36 AM CDT [facility] Physical Therapy Missed Visit Physical Therapy attempted to see patient today, 04/12/2010, for evaluation. Unable to see patient forthis reason: test. Will attempt again as soon as possible. Trudi Locke PT [phone] --- End of Report --- Lucy Parker - 04/12/2010 8:30 AM CDT [facility] NeuroSurgery Progress Note Vitals Temp (24hrs), Min:96 ??F (35.6 ??C), Max:99.5 ??F (37.5 ??C) Mean Arterial Pressure (MAP) Av MM HG Min: 65 MM HG Max: 104 MM HG Exam Intubated and sedated Movement of BUE Labs Lab Results Component Value Date/Time ??? SODIUM 137 04/12/10 4:24 AM ??? HGB 10.7* 04/12/10 4:24 AM ??? PROTIME 13.5 04/11/10 10:30 PM ??? 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 Baron Plan Extubate when able today Continue with flat HOB until otherwise noted, will change order MRI of Thoracic spine when able On dilaudid for pain control Lucy Parker PA-C --- End of Report --- Carolyn Wells - 04/12/2010 7:32 AM CDT [facility] SICU Critical Care Progress Note Date: 04/12/2010 Date of service: 04/12/2010 Diagnosis: Maurice Baron XNeurosurgery 64 yr, male S/P: Radical resection of thoracic spinal cord tumor Injuries: Recurrent spinal cord tumor Post-Op Day: #1, ICU Day: #2, Hospital Day: #2 HPI/ROS: No Change Meds: Current hospital medications Medication Dose Route Frequency ??? acetaminophen (aka TYLENOL) tablet 325-650 mg 325-650 mg Oral Q4H PRN ??? atorvastatin (aka LIPITOR) tablet 40 mg 40 mg Oral Daily ??? baclofen (aka LIORESAL) tablet 20 mg 20 mg Oral BID PRN ??? bisacodyl (aka DULCOLAX) suppository 10 mg 10 mg Rectal DAILY PRN ??? citalopram (aka CELEXA) tablet 40 mg 40 mg Oral Daily ??? cyclobenzaprine (aka FLEXERIL) tablet 10 mg 10 mg Oral BID ??? dexamethasone (aka DECADRON) injection 10 mg 10 mg IV SDS ??? docusate sodium (aka ENEMEEZ) enema 1 Enema 1 Enema Rectal Daily ??? famotidine (aka PEPCID) tablet 20 mg 20 mg Oral BID ??? furosemide (aka LASIX) tablet 80 mg 80 mg Oral Daily ??? gabapentin (aka NEURONTIN) capsule 200 mg 200 mg Oral TID ??? gelatin sponge with thrombin (GELFOAM PLUS) dressing Intra-Op ??? HYDROmorphone (aka DILAUDID) 10 mg in NaCl 0.9 % 50 mL infusion 0.2 mg/hr IV Continuous ??? insulin regular (aka humULIN R, novoLIN R) injection 2-12 Units 2-12 Units SC PRN based on BloodSugar ??? LORazepam (aka ATIVAN) tablet 1 mg 1 mg Oral TID ??? magnesium hydroxide (aka MILK OF MAGNESIA) oral liquid 30 mL 30 mL Oral DAILY PRN ??? magnesium sulfate premade infusion 2 g 2 g IV PRN Electrolyte Protocol ??? magnesium sulfate premade infusion 2 g 2 g IV PRN Electrolyte Protocol ??? magnesium sulfate premade infusion 2 g 2 g IV PRN Electrolyte Protocol ??? magnesium sulfate-dextrose 5% 1 g/100 mL premixed infusion 1 g IV PRN Electrolyte Protocol ??? NaCl 0.9 % infusion 1,000 mL 1,000 mL IV Continuous ??? NaCl 0.9 % SOLN with VANCOCIN HCL 1 g Intravenous (Continuous Infusion) Intra-Op ??? ondansetron (aka ZOFRAN) injection 4 mg 4 mg IV Q6H PRN ??? polyethylene glycol 3350 (aka GLYCOLAX) powder 17 g 17 g Oral Daily ??? potassium chloride (aka K-DUR,KLOR-CON M) extended release tablet 20 mEq 20 mEq Oral QID ??? potassium chloride 10 mEq/50 mL IV piggyback 10 mEq IV PRN Electrolyte Protocol ??? potassium chloride 10 mEq/50 mL IV piggyback 10 mEq IV PRN Electrolyte Protocol ??? potassium chloride 10 mEq/50 mL IV piggyback 10 mEq IV PRN Electrolyte Protocol ??? potassium chloride 20 MEQ/50ML 20 mEq 20 mEq IV PRN Electrolyte Protocol ??? potassium chloride 20 MEQ/50ML 20 mEq 20 mEq IV PRN Electrolyte Protocol ??? potassium chloride 20 MEQ/50ML 20 mEq 20 mEq IV PRN Electrolyte Protocol ??? potassium chloride 20 MEQ/50ML 20 mEq 20 mEq IV PRN Electrolyte Protocol ??? potassium chloride oral liquid 20 mEq 20 mEq Oral PRN Electrolyte Protocol ??? potassium chloride oral liquid 40 mEq 40 mEq Oral PRN Electrolyte Protocol ??? potassium chloride oral liquid 40 mEq 40 mEq Oral PRN Electrolyte Protocol ??? potassium phosphate 10 mmol in NaCl 0.9 % 250 mL infusion 10 mmol IV PRN Electrolyte Protocol ??? potassium phosphate 15 mmol in NaCl 0.9 % 250 mL infusion 15 mmol IV PRN Electrolyte Protocol ??? potassium phosphate 15 mmol in NaCl 0.9 % 250 mL infusion 15 mmol IV PRN Electrolyte Protocol ??? propofol (aka DIPRIVAN) injection 1,043 mcg/min 10 mcg/kg/min IV Titrate ??? senna (aka SENOKOT) tablet 8.6 mg 1 Tab Oral QID ??? sodium phosphate 10 mmol in NaCl 0.9 % 250 mL infusion 10 mmol IV PRN Electrolyte Protocol ??? sodium phosphate 15 mmol in NaCl 0.9 % 250 mL infusion 15 mmol IV PRN Electrolyte Protocol ??? sodium phosphate 15 mmol in NaCl 0.9 % 250 mL infusion 15 mmol IV PRN Electrolyte Protocol ??? trimethoprim (aka TRIMPEX) tablet 100 mg 100 mg Oral BID ??? vancomycin (aka VANCOCIN) 1,500 mg in NaCl 0.9 % 500 mL IV PIGGYBACK 1.5 g IV Q12H(NS) Neuro Motor Sensory: Moves upper extremities to command No movement of lower extremities HOB: 30 Degrees Pain/Sedation Medication(s): Propofol, dilaudid gtt, baclofen PRN, baclofen pump, flexeril, neurontin, PRN ativan Pain Scale (0-10): 2 Patient Cerebral Pressure in the past 4 hrs: Mean Arterial Pressure (MAP) 04/12/10 0700 72 MM HG 04/12/10 0630 71 MM HG 04/12/10 0600 73 MM HG 04/12/10 0530 71 MM HG 04/12/10 0500 75 MM HG 04/12/10 0430 74 MM HG 04/12/10 0400 72 MM HG Lab Results Component Value Date/Time ??? SODIUM 137 04/12/10 4:24 AM Assessment/Plan: Spinal cord tumor, recurrent ependymoma. :: POD #1 from radical resection. :: Continue strict flat bedrest d/t concern for dural leak - OK for reverse Trendelenburg. :: Neurologically unchanged from preop. :: Continue home antispasmodics, muscle relaxants: Baclofen pump with PRN baclofen, PRN flexeril, TID neurontin. :: PMR consult today to interrogate baclofen pump. Pain. :: Change dilaudid gtt to PRN IV morphine as patient has reportedly had reaction to dilaudid in thepast, per . Sedation. :: Propofol for sedation while on the vent to RASS goal -1. Pulmonary Exam: BS diminished bilaterally Vent Day #: 2 Wean Trial: Passed CXR: Bibasilar atelectatic changes Secretions Amount: None; Secretions Consistency: (not recorded); Secretions Color: (not recorded) Resp Rate (24hrs), Resp Av.4 Min: 7 Max: 27 O2 Sats (24hrs), SpO2 Av.8 % Min: 97 % Max: 100 % Patient Machine Settings in the past 8 hrs: Mode Breath Type Set Vt Set Pressure Set O2 Vent (%) PEEP Pressure Support DO NOT USE Mode Set Rate 04/12/10422 A/C VC 700 ML - 40 % 5 CM H2O - - 12 BPM 04/12/108 A/C VC 700 ML - 40 % 5 CM H2O - - 12 BPM Patient Measured Vent Parameters in the past 8 hrs: Peak Insp Pressure Plateau Pressure Mean Airway Pressure Compliance Total Respirations Exhaled Total MV Do Not UseExhaled Total MV 04/12/10422 21 CM H20 18 CM H20 10 CM H20 55 ML/CM H20 12 BREATHS/MIN 8.2 lpm - 04/12/108 20 CM H20 16 CM H20 9.8 CM H20 - 12 BREATHS/MIN 8.1 lpm - Lab Results Component Value Date/Time ??? PH 7.401 04/11/10 10:31 PM ??? PCO2 39.7 04/11/10 10:30 PM ??? PO2 103* 04/11/10 10:30 PM ??? HCO3 24.1 04/11/10 10:30 PM ??? BD 0.1 04/11/10 10:30 PM ??? MODE Information Not Given 04/11/10 10:30 PM ??? FIO2 Value: 40.0 Percent (%) 04/11/10 10:30 PM Assessment/Plan: Acute respiratory failure requiring mechanical ventilation. :: Weaned successfully this am, extubated uneventfully :: Provide supplemental O2 to maintain sats >92%. :: Encourage good pulmonary toilet. :: Keep HOB >30 degrees in reverse Trendelenburg. CV Exam: Regular rate and rhythm without murmur Shove Up: NSR Heart Rate (24hrs), Pulse Av Min: 76 Max: 114 Systolic (24hrs), Av mmHg, Min:91 mmHg, Max:152 mmHg Diastolic (24hrs), Av mmHg, Min:53 mmHg, Max:104 mmHg Patient Hemo Parameters in the past 8 hrs: Central Venous Press (CVP) Wedge Pressure (PCWP) PA Pressure Cardiac Output (CO) Cardiac Index (CI)Systemic Vasc Resistance Index (SVRI) Continuous SvO2 Arterial-Venous O2 Difference (Ca-vO2) Oxygen Consumption Index (VO2I) Oxygen Delivery Index (DO2I) 04/12/10 0430 11 MMHG - - - - - - - - - 04/12/10 0000 12 MMHG - - - - - - - - - Lab Results Component Value Date/Time ? ? TROP <0.012 04/12/10 4:25 AM Assessment/Plan: Baseline hypertension, presently normal to mildly hypOtensive. :: Hold on resuming home antihypertensives for now - anticipate patient will return to baseline as propofol is off post-extubation. History of BLE DVT. :: Extensive clot burden, per patient's - was planned to be on coumadin chronically. :: Resume anticoagulation with lovenox, bridging to coumadin when OK with surgical team. GI Exam: Soft, non-tender, non-distended Tubes/Drains: None Nutrition: none Assessment/Plan: No acute issues. Renal Last 2 Encounter Wt Readings: Admission (Current) on 04/11/2010 04/11/2010 11:53 AM Weight: 104.327 kg (230 lb) Surgery on 04/11/2010 04/11/2010 11:53 AM Weight: 104.327 kg (230 lb) Urine: 25cc/hour MIVF: Ns at 100 cc/hour Patient Urine Catheter Output (mL) in the past 8 hrs: Urine Catheter Output (mL) 04/12/10 0600 50 ML 04/12/10 0400 50 ML 04/12/10 0200 100 ML 04/12/10 0000 200 ML Intake/Output Summary (Last 24 hours) at 04/12/10 0732 Last data filed at 04/12/10 0700 Gross per 24 hour Intake 1744.9 ml Output 575 ml Net 1169.9 ml Lab Results Component Value Date/Time ??? SODIUM 137 04/12/10 4:24 AM ??? K 4.1 04/12/10 4:24 AM ??? CHLORIDE 104 04/12/10 4:24 AM ??? CO2 24 04/12/10 4:24 AM ??? BUN 15 04/12/10 4:24 AM ??? CREATININE 0.76 04/12/10 4:24 AM ??? CA 8.3* 04/12/10 4:24 AM ??? MG 2.1 04/12/10 4:24 AM ??? PHOS 2.9 04/12/10 4:24 AM Assessment/Plan: Hypocalcemia. Follow. Extremities Extremities warm, pulses palpable, and no edema present No results found for this basename: ck Assessment/Plan: No acute issues. Heme Lab Results Component Value Date/Time ??? HGB 10.7* 04/12/10 4:24 AM ??? HCT 29.6* 04/12/10 4:24 AM ??? RBC 3.43* 04/12/10 4:24 AM ??? PLTS 176 04/12/10 4:24 AM ??? PROTIME 13.5 04/11/10 10:30 PM ??? INR 1.0 04/11/10 10:30 PM ??? PTT 27.0 04/11/10 11:57 AM Assessment/Plan: Post op anemia ID Temp (24hrs), Min:96 ??F (35.6 ??C), Max:99.5 ??F (37.5 ??C) Lab Results Component Value Date/Time ??? WBC 8.1 04/12/10 4:24 AM Antibiotic(s): Trimethoprim - chronic med Vanco, day #2/2 Assessment/Plan: Vanco x 48 hours, per surgical team. Endocrine Sliding scale Lab Results Component Value Date/Time ??? GLUCOSE 187* 04/12/10 4:24 AM ??? GLWB 229* 04/12/10 4:02 AM Assessment/Plan: Hyperglycemic on current sliding scale - no known history of diabetes. Continue coverage with Humalog sliding scale - follow now that he is extubated - hopefully will normalize. Prophylaxis Skin Exam: No rashes or lesions, No erythema of line sites Daily Line Reassessment: #1-CVC in Right, Internal Jugular; Day # 2; Indication: Blood drawing, Monitoring, IV access; Plan: Continue #2-[place] in Left, Radial; Day # 2; Indication: Blood drawing, Monitoring; Plan: Discontinue Assessment/Plan: GI Prophylaxis: H2. DVT Prophylaxis: LUIS, SCD. Therapy: PT, OT. Diagnostic Tests Personally Reviewed: Imaging studies, Lab results Disposition SICU Cristine Balbuena PA-C Staff Summary BP 102/65 Pulse 103 Temp(Src) 97.8 ??F (36.6 ??C) (Oral) Resp 9 Ht 5' 10 (1.778 m) Wt 104.327 kg (230 lb) SpO2 85%, No LMP recorded.. Current Critical Care Issues Patient - is intubated, is receiving analgesics and is sedated as indicated to a RASS goal of: 0 = Alert and Calm. Acute Respiratory Failure - Persists. The patient is a candidate for separation from mechanical ventilatory support at this time. Continue weaning trial and ventilator bundle. Successfully extubated during rounds this AM. Acute Blood Loss Anemia - No transfusion indicated at this time, will recheck Hgb level. Baclofen pump in place - PMR consultation to interrogate. History of bilateral DVT 2006, On coumadin for life per - will need to clarify timing of restart anticoagulation with neurosurgery. D/c sabrina with extubation All pertinent labs, imaging studies, physical exam and medications have been reviewed by myself withthe sicu team. The patient is critically ill by my examination today and requires continued ICU monitoring and cares. 30 minutes critical care time, exclusive of procedures, were spent at the bedside in the management and care of this patient. I agree with the findings and plan of care as documented in the note by Ms. Sree FREEMAN. Carolyn Wells MD, 04/12/2010, 11:47 AM. Spenser Morocho - 04/12/2010 5:09 AM CDT [facility] Progress Note (Nursing) Identify/Problem(s): Respiratory status Hemodynamics Surgical incision Desired Outcome(s): Pt will wean appropriately, have O2 sats >92% and extubate this am. Pt's MAP will remain >65 without need of medication assistance. Pt will remain afebrile and have minimal drainage from surgical site. Evaluation: Pt arrived from OR via bed at 2030. Pt intubated. Off ganga. Wean trials attempted twice this evening with apnea episodes and minimal tidal volumes noted, pt remains intubated overnight. Lung sounds clear, O2 sats >95% on 40% O2. Pt's MAP remains >65 without need of ganga being restarted. PERRL. Sedated on propofol and has dilaudid infusing continuously for pain control. Pt follows commands weakly in BUE, pt paraplegic. Hypoactive bowel sounds. Adequate urine output. Tele SR. Afebrile. present at pt's bedside throughout shift. Family aware of plan of care. Plan: Will continue to monitor pt's overall status. Will assess pt's respiratory status, suction pt as needed and page RT if pt seems to need additional support. Will monitor pt's MAP, will start ganga if MAPsremains <65. Will continue sedation and pain medication. Will continue to follow pt's plan of care. Spenser Morocho RN --- End of Report --- Spenser Dooley - 04/11/2010 11:37 PM CDT Problem: Falls Risk Goal: Low Risk (0-4): Fall Prevention I applied all active low risk falls prevention interventions. Froilan Hardin - 04/11/2010 8:53 PM CDT [facility] Medication Reconciliation Note Medication History: Medications marked Taking as of 04/11/10 encounter (Hospital Encounter) with LORAINE MAURICE X: atorvastatin (LIPITOR) 40 MG tablet Take 1 Tab by mouth daily. baclofen (AKA LIORESAL) 10 MG tablet Take 2 Tabs by mouth two times a day as needed. BACLOFEN IT 220 mcg by Intrathecal route daily. citalopram (AKA CELEXA) 40 MG tablet Take 40 mg by mouth daily. cyclobenzaprine (AKA FLEXERIL) 10 MG tablet Take 10 mg by mouth two times a day. enoxaparin (AKA LOVENOX) 150 MG/ML injection Inject 0.7 mL subcutaneously every 12 hours. furosemide (AKA LASIX) 80 MG tablet Take 80 mg by mouth daily. Gabapentin (AKA NEURONTIN) 100 MG tablet Take 2 Tabs by mouth three times a day. LORazepam (AKA ATIVAN) 0.5 MG tablet Take 2 Tabs by mouth three times a day. metoPROLOL tartrate (LOPRESSOR) 50 MG tablet Take 1 Tab by mouth two times a day. mupirocin (AKA BACTROBAN) 2 % ointment Apply 0.5 Inches topically two times a day. potassium chloride (K-DUR) 20 MEQ tablet Take 1 Tab by mouth 4 times a day. senna (AKA SENOKOT) 8.6 MG tablet Take 1 Tab by mouth 4 times a day. TRIMETHOPRIM OR Take 100 mg by mouth daily. Medications Reviewed and Reconciled: Will f/u with SICU team and resume Lovenox post-op if indicated and when ok by neurosurg. Any medication adjustments made from patient's medication history regimen are appropriate for current hospitalization and medical condition. PHARMACIST NAME: Froilan Hardin Phone/Pager #: [phone] --- End of Report --- Froilan Hardin - 04/11/2010 8:44 PM CDT [facility] Initial Kinetics Note Assessment: Jie Cullen, [id number], is a 64 yr year old male started on vancomycin 1g iv q 12h x 48h forpossible spinal infection pending intra-op culture results. Data: Last Height: 5' 10 (177.8 cm) Last Wt - Scale: 230 lb (104.327 kg) [place] Body Weight: 73 kg Dosing Weight: 85 kg Last Temp: 99.5 ??F (37.5 ??C) Temp (24hrs), Min:96 ??F (35.6 ??C), Max:99.5 ??F (37.5 ??C) Lab Results Component Value Date/Time ??? WBC 8.1 04/06/10 5:10 AM ??? CREATININE 0.96 04/05/10 10:52 AM Estimated CrCl = 77 ml/min The estimated kd = 0.0683 1/hour and t1/2 = 10 hours. Recommendations: - Adjust vancomycin regimen to 1.5g iv q 12h for goal trough of 15-20mcg/mL to better penetrate the blood brain barrier. - Will not plan to f/u with a vancomycin trough unless intra-op cx indicate presence of gram positives in the next 48h (as per nsgy note). Froilan Hardin PharmD Pager Number: [phone] --- End of Report --- documented in this encounter Procedure Notes Maurice Baron - 04/12/2010 9:21 AM CDT DATE OF SURGERY: 04/11/2010 STAFF SURGEON: Maurice Baron MD CIGARETTE PACKAGE EXAMINER: Lucy Parker PA ANESTHESIA: General. ESTIMATED BLOOD LOSS: 100-150 mL PREOPERATIVE DIAGNOSES 1. History of thoracic (T5) medullary cord ependymoma. 2. Status post excision of thoracic ependymoma x 2. 3. History of radiation therapy and radiosurgery of thoracic spinal cord tumor. 4. 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 POSTOPERATIVE DIAGNOSES 1. History of thoracic (T5) medullary cord ependymoma. 2. Status post excision of thoracic ependymoma x 2. 3. History of radiation therapy and radiosurgery of thoracic spinal cord tumor. 4. 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 PROCEDURE PERFORMED 1. Redo T4, T5, T6 laminectomy, takedown of scar tissue. 2. Gross total excision of recurrent spinalcord tumor. 3. Closure with bilateral paraspinal muscular rotational flap. INDICATION: The patient is a 64-year-old, unfortunate man that almost 10 years ago presented with weakness of both lower extremities. 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 [facility] with excision of this tumor. Within a couple of months there was a recurrence of the tumor, and they had to go back in to resect this rapidly growing tumor. After the second operation, the patient developed a wound collection that required a third operation.After this, he underwent radiation therapy of the region. He did well, but a few years had again another recurrence which was treated with radiosurgery by Dr. Yris Brownlee. In followup, a recurrent lesion was diagnosed. This was a very large tumor that occupies the entire diameter of the spinal canal at this level with the cord extremely displaced. 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 The patient has almost complete spinal cord deficit at this point with minimal residual sensory function and no residual motor function. The MRI also shows that he has a subfascial fluid collection. This had a rather unusual imaging characteristic to an MRI suggestive of highly proteinaceous fluid. The plan was to bring the patient to the OR and electively undertake an excision of this recurrent tumor. The goal at this time is to do as radical a resection as possible. As the patient has minimal residual cord function, the plan is to resectany suspicious area in the vicinity of the tumor, even if this entails sacrificing part of his spinal cord. The plan has been thoroughly discussed with the patient and his family. DESCRIPTION OF PROCEDURE: The patient was anesthetized, intubated and placed prone on a Александр table. The skin was prepped and draped in the usual sterile fashion. The previous incision was infiltrated with lidocaine 1% with epinephrine and opened. Upon going through the fascia, the actual scar tissue we encountered the fluid collection with first brownish, purulent-like fluid was evacuated. Cultures were sent for this as well as a STAT gram stain, which was negative. Upon opening this collection we noticed that the wall had this very abnormal tissue that resembled mud with fibrotic tissue as wellas a significant amount of debris. All of this was peeled off and sent for pathology. Furthermore, at this point after removing all of the very dark brown-black mud- like tissue, we were left with the very fibrotic capsule of this collection, I decided resecting all of this, working immediately around it and resecting it as almost a single specimen. This was completed without difficulty, exposing bogdan l tissues around this very large collection. At this point we could expose the residual spinous process of T3. I utilized the subperiosteal dissection at this level as well as T7 to define a level of depth. Then I incised the scar tissue overlying the previous laminectomy on the left side, creating a flap turned to the right so that I could dissect the scar tissue from the thecal sac or at least cut through the scar tissue, leaving a thinner scar tissue attached to the residual thecal sac. This worked out very nicely as I could expose and develop a plane just overlying the previous thecal sac wherewe could identify almost for the entire length the suture line of the previous dural closure. It wasobvious that they had used an artificial dura, such as DuraGuard, due to its discoloration. I exposed from above and below meeting the center and reflected this flap of scar tissue from left to right. At this point I finished dissecting the thecal sac off the edges of bone. I expanded a little bit thelaminectomy towards the right and the left at all levels and upwards at the level of T4 or rather T3. I expanded the laminectomy upwards a full centimeter and a half, at which point I could expose normal thecal sac. The thecal sac over here was bulging and very voluminous. It was very obvious where the tumor was. Some of the DuraGuard had been infiltrated by this lesion, and the tumor itself was bulging out of it. Some of the tissue from the tumor itself did resemble a little bit this very abnormal tissue of the subfascial collection encountered, raising the possibility, although remote, that this subfascial collection was a tumoral spread. Of course, we sent all the resected tissue from the collection to pathology. At this point then I opened the thecal sac in the midline above and below the tumor and developed a plane between the dura and the adjacent spinal cord and opened the thecal sac up and down. Multiple tack-up sutures were elevated. I could freely identify a very thinned out residual cord that was displaced predominantly towards the right, leaving an extremely thin layer of nils and the roots towards the left. I started removing this tumor utilizing microscopic magnification, microdissection and occlusion. I developed the tumor, then developed a nice plane around it and the adjacentcord that appeared normal. Once I completed the resection of the tumor working circumferentially I could see that there was some suspicious area of the cord of a very squash- colored tissue that is orange-yellowish, very atypical for a spinal cord. I think that this may be spinal cord tissue that has been loaded with hemosiderin or cord after radiation therapy with the possibility of some small degreeof radionecrosis. I decided ultimately removing this as it really was abnormal tissue. I utilized microdissection with close-up to do this. Of course, I sacrificed the residual nils of the left side of the tumor, only leaving this very thinned out cord that was pushed to the right side. There was no evidence of residual tumor at that level, and I left that alone. At this point careful hemostasis was done. I copiously irrigated the field and then closed this thickened, scarred down dura with running 4-0 Nurolon sutures. I placed fibrin glue on top of this closure, then turned the scar tissue flap on top of the thecal sac back in position and secured it there with 2-0 Vicryl sutures, also fibrin glueto that suture line. Then in order to close this very large wound I developed a bilateral paraspinalrotational flap. In order to do this I worked immediately above the fascia-scar tissue, developing aplane over here laterally, exposing the surface of the paraspinal muscles over here and doing a release incision laterally in the fascia which allowed me to rotate down and to the opposite side this muscle flap. This not only brought very well-vascularized and well-preserved tissue covering the previous surgical site, but also allowed me to flatten the paraspinal areas which preoperatively were notedto be very prominent, creating a big goodnews bay where the wound was sitting, so with this we could flatten each border of the goodnews bay, which the patient achieved a much nicer cosmetic closure. So I did it first on the right side and brought this down, tacked it down with 0 Vicryl, then did the same thing on the left side and rotated on top of the previous flap and tacked the fascia here to the undersurface of Ivan's fascia, with which we obtained a very nice, flat looking closure. I applied some retention sutures using two #2 Prolenes and retention button to further reduce the tension on the wound. ThenI approximated Ivan's with 2-0 Vicryl, 3-0 Vicryl subcutaneous and then a running 3-0 vertical mattress suture nylon to skin. The retention sutures were tied. The wound was dressed. The patient was then returned to his [place] and taken stable, intubated, to the intensive care unit. The procedure was well-tolerated with no apparent complications. Needle and sponge counts correct and verified at the end of the case. Estimated blood loss was approximately 100-150 mL. No drains were placed. Maurice Baron MD sko Dictated: 04/12/2010 09:21:50 Transcribed: 04/12/2010 09:41:51 Doc #: [id number] cc:Maurice Baron MD, Referring Provider Yris Brownlee MD DO NOT SIGN UNLESS PRESENT FOR PROCEDURE I attest that I was present for and participated in the lee portions of this procedure(s) in compliance with the Health Care [employer]ancing [employer] Teaching Physician Guidelines. Signed Date Regions Staff Physician 1 Page 2 Patient Name: JIE CULLEN INPATIENT OPERATIVE REPORT CONFIDENTIAL MEDICAL RECORD [address] [id number] Page 1 Patient: JIE CULLEN Location: W3 N: [id number] Admit Date: 04/11/2010 Date of : 1945 Discharge Date: Age: 64Y INPATIENT OPERATIVE REPORT Lucy Parker - 04/11/2010 8:08 PM CDT [facility] Brief Operative Progress Note Surgery Date: 04/11/2010 Primary Surgeon: Surgeon(s): Maurice Baron Assistants: Lucy Parker PA-C Post-op Diagnosis: Thoracic ependymoma Procedure: Radical resection of thoracic spinal cord tumor EBL: 150 mL Fluids: 2700 mL crystalloid, 500 mL hextend UOP: 650 mL Specimens: Multiple specimens sent: immediate culture of more superficial fascia layer was negative for organisms; both superficial and deep specimens sent for permanent Complications / Findings: None/ see dictated operative note Plan: Admit to SICU Wean to extubate when able Strict bedrest until further PROOF INSPECTOR for pain control once extubate Will d/c vancomycin 48 hours after cultures are negative Indications: I was asked by Dr. Baron to assist with surgery. I positioned and prepped the patient.I retracted soft tissue for operative exposure. I suctioned fluids. I provided traction for dissection. I helped with ligate blood vessels. I helped Dr. Baron identify and protect important structures. I sutured and bandaged the incision. The procedure was medically necessary for an journeyman operator assistant because Dr. Baron needed the operative exposure and assistance that I provided. This allowed him to safely and efficiently operate. It was also important that I help ligate blood vessels to maintain hemostasis and reduce the bleeding risk. The assistance that I provided reduced operative time which meant less general anesthetic for the patient. Lucy Parker PA-C --- End of Report --- [facility], PROVIDER - 04/11/2010 12:00 AM CDT [facility] - 04/11/2010 12:00 AM CDT [facility] - 04/11/2010 12:00 AM CDT [facility], PROVIDER - 04/11/2010 12:00 AM CDTAssociated Order(s): EKG IP; EKG IP [facility] PROVIDER - 04/11/2010 12:00 AM CDT [facility] - 04/11/2010 12:00 AM CDT [facility] - 04/11/2010 12:00 AM CDT documented in this encounter Consult Notes Jessica Garcia - 04/18/2010 1:07 PM CDTAssociated Order(s): WOUND/FRAME REPAIRER CONSULT; WOUND/FRAME REPAIRER CONSULT [facility] Wound/Ostomy Progress Note Reason for Consultation: buttocks wound Requesting Service/Physician: Criselda Rodriguez PA-C HPI: Pt is a 64 year old male who is admitted s/p radical resection of a spinal cord tumor. Pt is present during interview and was able to provide lee elements of the HPI. Per pt began to develop redness and blisters over buttocks over the past week, he also has become more swollen over the past week they didn't want him to get dehydrated. She reports that nursing has been applying cavilon barrier cream to the buttocks wounds. Pt has had one episode of fecal incontinence, he has a de la cruz catheter managing urine. He has been working with PT/OT for upper body strengthening exercises, currently able to perform slide board transfers with 1 assist from bed to w/c. Pt has a Angus cushion in his w/c which in good repair. Documentation of the wound began on 04/17 at 0830 by nursing, skin was notedto be intact on initial assessment by the nurses. There is no H&P to refer to. ROS: CARDIOVASCULAR: no chest pain CONSTITUTIONAL: negative ENDOCRINE: no diabetes GASTROINTESTINAL: Occasional incontinence GENITOURINARY: Currently with de la cruz catheter HEMATOLOGIC/LYMPHATIC/IMMUNOLOGIC: thoracic ependymona MUSCULOSKELETAL: Positive for paraplegia RESPIRATORY: no shortness of breath SKIN: Positive for new suspected pressure ulcer over buttocks/blistered area PMH: HTN, HL, ependymoma with paraplegia Meds: Current hospital medications Medication ??? acetaminophen (aka TYLENOL) tablet 325-650 mg ??? atorvastatin (aka LIPITOR) tablet 40 mg ??? baclofen (aka LIORESAL) tablet 20 mg ??? bisacodyl (aka DULCOLAX) suppository 10 mg ??? citalopram (aka CELEXA) tablet 40 mg ??? cyclobenzaprine (aka FLEXERIL) tablet 10 mg ??? docusate sodium (aka ENEMEEZ) enema 1 Enema ??? enoxaparin (aka LOVENOX) injection 100 mg ??? ferrous sulfate tablet 325 mg ??? gabapentin (aka NEURONTIN) capsule 200 mg ??? insulin regular (aka humULIN R, novoLIN R) injection 2-12 Units ??? lidocaine (aka LIDODERM) 5 % 2 Patch ??? LORazepam (aka ATIVAN) tablet 1 mg ??? magnesium hydroxide (aka MILK OF MAGNESIA) oral liquid 30 mL ??? MORphine injectable 1-4 mg ??? ondansetron (aka ZOFRAN) injection 4 mg ??? oxycoDONE-acetaminophen (aka PERCOCET) 5-325 MG tablet 1-2 Tab ??? patient's own pump ??? polyethylene glycol 3350 (aka GLYCOLAX) powder 17 g ??? povidone-iodine (aka BETADINE) 10 % topical liquid ??? remove lidocaine patch 1 Each ??? senna (aka SENOKOT) tablet 8.6 mg ??? trimethoprim (aka TRIMPEX) tablet 100 mg ??? warfarin (aka COUMADIN) tablet 7.5 mg Allergies. No Known Allergies Family Health History: reviewed and noncontributory to the [facility] Social Health History: no smoking, no etoh PE V/S: BP 104/75 Pulse 96 Temp(Src) 97.5 ??F (36.4 ??C) (Oral) Resp 18 Ht 5' 10 (1.778 m) Wt 104.327 kg (230 lb) SpO2 95% General Appearance:Middle aged male who appears slightly older than his reported age, nad HEENT: Normocephalic, Atraumatic Neck: Trachea Midline Respiratory: Unlabored breathing GI: no fecal incontinence during exam; passing flatus : de la cruz catheter present; patent Genitalia/Groin/Buttocks: buttocks is very firm with edema, intact small scattered serum filled blisters noted on left buttock, induration present, right buttock with blanchable erythema, skin intact, skin appears slightly moist Skin: no other rash/lesions noted Immunologic: No signs or symptoms of infection noted Neurological: Alert and oriented x4 Psychiatric: Pt was calm and cooperative with examination Labs: Lab Results Component Value Date/Time ??? WBC 4.2 04/17/10 7:15 AM ??? WBC 8.2 04/13/10 5:45 AM Assessment/Plan: 64 year old male s/p radical resection of spinal cord tumor now with stage 2 pressure ulcer on left buttocks, while this is not a typical pressure ulcer the very firm nature of the tissue over the buttocks 2/2 to edema is likely the cause, as there is no bony prominence that can be palpated below this area of injury. I spoke at length with the and patient about proper positioning in bed and limiting time in the chair to 1 hour increments, I instructed them on how to cleanse theskin and what products to use, we discussed the possible etiology of this wound and how it most likely was unpreventable due to the edema. I entered wound care orders in [facility]. Please contact the wound care service with any further questions or concerns. [phone]. Time spent with patient: 40 minutes with > 50% of time spent for education and coordination of care. 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 Patient was initially diagnosed with ependymoma in 1999 at [facility] [place]. He underwent resection by Dr. Glasgow in 05/2000, however resection was incomplete due to encasement of nerves. R adiation was planned however ependymoma quickly regrew and patient underwent re- resection in 07/2000. Post-op he had some loss of motor capabilities of the LLE and peripheral sensation loss of the RLE.In 01/2001 he presented with difficulty urinating and was again found to have regrowth of the thoracic ependymoma. He again underwent resection, this time followed by radiation therapy. This seemed to control the tumor for approximately 5 years, but in 02/2006 he presented with increased spasticity ofthe bilateral lower extremities. Again there was tumor regrowth. In 05/2006 he underwent cyberknife treatment. In 03/2007 with balance issues he was found to have fluid within the spinal cord for which he was treated with steroids. This led to profound weakness and right biceps tendon tear. He became wheelchair bound. In 02/2010 he again presented with urinary retention and was found to have ependymoma regrowth. He was therefore admitted on 04/11/10 for resection. Surgery was without complications. Patient reports ongoing bilateral lower and RUE weakness. He has a de la cruz in place and is unsure if he isable to yet urinate. He is otherwise without complaints. Past Medical History: 1. Hypertension 2. Hyperlipidemia 3. Bilateral lower extremity DVT: 1st diagnosed one week prior to second ependymoma surgery in bilateral lower extremities. IVC filter placed. Post-op patient started on coumadin. Remained on coumadin x 6 months. In 2006 diagnosed with RLE DVT after period of immobility. Restarted on coumadin and maintained until the present time. 4. IVC filter placement 1999 5. Recurrent UTI, neurogenic bladder 6. Depression 7. Right knee arthroplasty 8. Appendectomy 9. Hernia repair 10. Vasectomy 11. TURP 12. Ependymoma as per HPI Social History: . Lives with in [place], [place]. Denies tobacco, alcohol, or illicit drug use. Family History: Mother with h/o colon cancer. Brother with h/o throat cancer. Sister with h/o renal and breast cancer. Current outpatient medications: Medications marked Taking as of 04/11/10 encounter (Hospital Encounter) with MAURICE BARON X: atorvastatin (LIPITOR) 40 MG tablet Take 1 Tab by mouth daily. Disp: Rfl: baclofen (AKA LIORESAL) 10 MG [...] mouth two times a day. Disp: Rfl: enoxaparin (AKA LOVENOX) 150 MG/ML injection Inject 0.7 mL subcutaneously every 12 hours. Disp: 2 mLRfl: 0 furosemide (AKA LASIX) 80 MG tablet Take 80 mg by mouth daily. Disp: Rfl: Gabapentin (AKA NEURONTIN) 100 MG tablet Take 2 Tabs by mouth three times a day. Disp: Rfl: LORazepam (AKA ATIVAN) 0.5 MG tablet Take 2 Tabs by mouth three times a day. Disp: Rfl: metoPROLOL tartrate (LOPRESSOR) 50 MG tablet Take 1 Tab by mouth two times a day. Disp: Rfl: mupirocin (AKA BACTROBAN) 2 % ointment Apply 0.5 Inches topically two times a day. Disp: 5 g Rfl: 0 potassium chloride (K-DUR) 20 MEQ tablet Take 1 Tab by mouth 4 times a day. Disp: Rfl: senna (AKA SENOKOT) 8.6 MG tablet Take 1 Tab by mouth 4 times a day. Disp: Rfl: TRIMETHOPRIM OR Take 100 mg by mouth daily. Disp: Rfl: Allergies: Review of patient's allergies indicates no known allergies. Review of Systems: A complete 10 point review of systems was completed and was negative with the exception of that mentioned in the HPI. Physical Examination: Vital Signs: BP 98/61 Pulse 106 Temp(Src) 98 ??F (36.7 ??C) (Oral) Resp 16 Ht 5' 10 (1.778 m) Wt 104.327 kg (230 lb) SpO2 98% General: A&Ox3. NAD. Resting comfortably Head: Normocephalic, atraumatic. Eyes: PERRL. EOMI. Fundoscopic exam without abnormality. Throat: MMM. No lesions of the oropharynx. Skin: Warm and dry. No rashes or lesions. Neck: No thyromegaly. No JVD. No carotid bruits. CV: RRR. nl S1 and S2. no m/r/g. Chest: CTA bilaterally. No wheezes or crackles. Abd: soft/NT/ND. BSs normoactive. No HSM. Ext: No edema bilaterally. Radial, PT, and DP pulses are 2+ and symmetric. Neuro: Cranial nerves grossly intact. DATA: Labs: Results for orders placed during the hospital encounter of 04/11/10 (from the past 24 hour(s)) INR/PROTIME Component Value Range ??? PROTIME 14.7 (*) 12.0-14.5 (sec) ??? INR 1.1 - ADD ON LAB ORDERS(SPECIMEN IN LAB) Component Value Range ??? ADD ON TEST R Additional Testing Ordered by - BASIC METABOLIC PANEL Component Value Range ??? BUN 10 7-20 (mg/dl) ??? SODIUM 136 135-145 (mmol/L) ??? POTASSIUM 3.2 (*) 3.5-5.1 (mmol/L) ??? CHLORIDE 101 98-107 (mmol/L) ??? CO2 31 (*) 22-30 (mmol/L) ??? GLUCOSE 105 70-180 (mg/dl) ??? CREATININE 0.85 0.66-1.25 (mg/dl) ? ? GFR, ESTIMATED >60.00 >60- (ml/min/1.73m2) ? ? GFR EST IF >60.00 >60- (ml/min/1.73m2) ??? CALCIUM 7.7 (*) 8.4-10.2 (mg/dl) ??? ANION GAP (CALC.) 5 3-11 (mmol/L) Imagin04/12/10 bilateral lower extremity ultrasound: CONCLUSION: 1. Nonocclusive thrombus in right common femoral and proximal femoral veins. 2. No evidence of left lower extremity DVT. 04/12/10 post-operative MRI: CONCLUSION: 1. Technical equipment related artifact degrades the images. 2. Postoperative changes from resection of previously demonstrated enhancing intramedullary neoplasm centered at T4. There appears to be enhancing intradural tissues at the level of the laminectomy defects as discussed above. 4. Edematous changes visualized cervical thoracic spinal cord. 5. Posterior paraspinal soft tissue postoperative changes. 04/05/10 preoperative MRI: CONCLUSION: 1. Intramedullary spinal cord lesion extends from T3 to T5. The lesion is inhomogeneous on the precontrast images. Cystic changes cephalad to the lesion in the thoracic and lower cervical spinal cord. Diffuse cervical spinal cord edema with edema extending to the medulla. Caudal extension of spinal cord edema approximates the conus medullaris. 2. T3-T6 laminectomy defects. The intramedullary tumor bulges into the laminectomy defect at T4. 3. Posterior paraspinal fluid collection at the level of the laminectomy defects. 4. Degenerative changes in the cervical spine and lumbar spine as detailed above. 5. Comparison studies if available may be helpful. 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 Patient with recurrent ependymoma despite resection x 3, radiation therapy, and cyber knife. He is POD#3 s/p his latest ependymoma resection. In this setting thereare case studies that suggest a benefit of chemotherapy in prevention of recurrence. Per NCCN guidelines regimens such as platin-based single or in combination, etoposide, nitrosurea, or avastin can beused(category 2A recommendation). There is also a study through the [facility] looking at lapatinib and temozolomide. Will discuss further with neurooncology at the [facility]. Once patient recovers from the most recent surgery will schedule outpatient follow [facility]. Patient and plan discussed with Dr. Loya. Report Completed by: Malathi Lopez MD Pager: [phone] Genny Loya - 04/14/2010 5:18 PM CDT I saw and examined the patient today. I agree with the findings and plan of care as documented in the note by Dr. Lopez. Genny Loya MD 04/14/2010 6:08 PM Cecile Browne - 04/13/2010 3:23 PM CDTAssociated Order(s): MEDICINE INPT CONSULT [facility] Medicine Consultation Note () Date of service: 04/13/2010 I was asked by Maurice Baron of [facility] to provide medical recommendations of this patient in regards to Hypotension, anticoagulation management with bilateral DVT and perioperative medical co-management. History of present illness: Jie Cullen is a 64 yr old paraplegic male with a history of HTN, HPL, h/o bilateral LE DVT s/p IVC on chronic coumadin, Ependymoma dx 1999 who completed Radical resection of thoracic spinal cord tumor 04/11/2010 stemming from Thoracic ependymoma. EBl 150cc, GETA, no complications per operative report however patient was started on pressors to maintain blood pressure (via chart review I do not see this in the MAR) and experienced respiratory failure unable to be weaned from ventilator so he was admitted to SICU postoperatively. On arrival to SICU Mr. Cullen had been successfully weaned from phenyephrine and blood pressure stable with tachycardia He was not able to be weaned from ventilator until POD2, he also was experiencing hypotension at this time which was thought to be secondary to propafol and responded well to IVFs. He denies significant medical history of [place], CVA, pulmonary, renal, GI, hepatic complications. He has been seen by SICU team as well as PMR team for baclofenac intrathecal pump for lower extremities spasms, they are continuing to manage this pump, interrogation completed. Transferred to floor once he was succesfully extubated, BP stable, however continued to be tachycardic thought to be secondary to hypovolemia. Labs significant for hgb hgb 9.6. -1/0. No electrolyte abnormalities. EKG with sinus Tachycardia Lanterior fasicular block with HR 109, no acute ischemic changes noted. CXR completed today with mild pleural effusions and bibasilar atelectasis. US bilateral lower extremities significant for DVT in RLE that is chronic. Mr. Cullen reports significant pain in bilateral shoulders this morning that was relieved with morphine, lidocaine patches, as well as repositioning. He denies any chest pain, shortness of breath, fevers or chills, nausea or vomiting. Sleeping on arrival and lethargic during exam. He also complains of continue numbness and tingling in bilateral upper extremity which was present preoperatively and was reason for completing surgery. He denies any headache, change in vision, slurring of speech, increased weakness in extremities. Mr. 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 Hereports that IVC filter was placed 2002 and he has been on chronic coumadin since. He denies rotation of IVC filter. US completed during this hospitalization with clot burden in RLE nonocclusive clot Rcommon femoral and proximal femoral veins. His primary care provider did start therapeutic enoxaparin in preparation for surgery and coumadin was discontinued. INR subtherapeutic prior to surgery. ROS: Admits to constipation that is chronic with narcotic medications as well as immobility. He reports regiment of senna-s and prune juice as outpatient that has been working for hm Admits to chronic UTI with neurogenic bladder on prophylactic abx chronically. He self caths. Does not recall last time that he had UTI, signs and symptoms include fevers. He denies any malodorus urine, dysuria, discolored urine. 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 atorvastatin (LIPITOR) [...] sodium (AKA ENEMEEZ) 283 MG enema Insert 1 Enema rectally daily. ??? enoxaparin (AKA LOVENOX) 150 MG/ML injection Inject 0.7 mL subcutaneously every 12 hours. 2 mL 0 ??? furosemide (AKA LASIX) 80 MG tablet Take 80 mg by mouth daily. ??? Gabapentin (AKA NEURONTIN) 100 MG tablet Take 2 Tabs by mouth three times a day. ??? LORazepam (AKA ATIVAN) 0.5 MG tablet Take 2 Tabs by mouth three times a day. ??? metoPROLOL tartrate (LOPRESSOR) 50 MG tablet Take 1 Tab by mouth two times a day. ??? mupirocin (AKA BACTROBAN) 2 % ointment Apply 0.5 Inches topically two times a day. 5 g 0 ??? OMEGA-3 FATTY ACIDS OR Take 1 Cap by mouth daily. ??? potassium chloride (K-DUR) 20 MEQ tablet Take 1 Tab by mouth 4 times a day. ??? senna (AKA SENOKOT) 8.6 MG tablet Take 1 Tab by mouth 4 times a day. ??? TRIMETHOPRIM OR Take 100 mg by mouth daily. ??? baclofen (AKA LIORESAL) 10 MG tablet Take 10 mg by mouth two times a day as needed. ??? warfarin (COUMADIN) 5 MG tablet Take 5 mg by mouth daily. Take by mouth 2 tablets on Saturday and 1& 1/2 tablets all other days. Allergies: No Known Allergies Physical Examination: BP 85/52 Pulse 112 Temp(Src) 98.1 ??F (36.7 ??C) (Oral) Resp 18 Ht 5' 10 (1.778 m) Wt 104.327 kg (230 lb) SpO2 96% General Appearance: 64 yr male in [facility], sleeping on arrival lethargic during exam HEENT: Atraumatic, normocephalic. PERRL. Lids, conjunctivae, sclera normal- anicteric, without discharge. EOMs equal bilaterally. Nares patent without discharge. Moist mucous membranes. No thrush or exudates. Neck:trachea midline Respiratory: Regular respirations. Clear to auscultation bilaterally, no whezzing, rhonci, or rales Cardiovascular:elevated rate and rhythm. Normal S1, S2. No murmurs, rubs or gallops. Abdomen: Soft, obese normoactive bowel sounds. Non-tender, non-distended. No masses, organomegaly, rebound tenderness. Musculoskeletal: DP 1/4 /radial pulses 2/4. 1+ edema in bilateral lower extremities up through thigh. Trace edema in bilateral upper extremities. No cyanosis, clubbing Skin: warm, dry, normal turgor without apparent rashes, lesion or ulcers Neurologic: CN III - VIII grossly intact. A&O x 3. DATA: Labs: Lab Results Component Value Date/Time ??? HGB 9.3* 04/13/10 5:45 AM ??? HGB 9.6* 04/13/10 2:30 AM ??? HGB 10.7* 04/12/10 4:24 AM Last Chem10 results: Lab Results Component Value Date/Time ??? SODIUM 137 04/13/10 5:45 AM ??? K 3.7 04/13/10 5:45 AM ??? CHLORIDE 104 04/13/10 5:45 AM ??? CO2 28 04/13/10 5:45 AM ??? BUN 18 04/13/10 5:45 AM ??? CREATININE 0.80 04/13/10 5:45 AM ??? GLUCOSE 101 04/13/10 5:45 AM ??? CA 7.9* 04/13/10 5:45 AM ??? ANIONGAP 5 04/13/10 5:45 AM ??? MG 1.8 04/13/10 5:45 AM ??? PHOS 3.2 04/13/10 5:45 AM Lab Results Component Value Date/Time ? ? TROP <0.012 04/12/10 10:59 AM ? ? TROP <0.012 04/12/10 4:25 AM ? ? TROP <0.012 04/11/10 10:30 PM EKG: Sinus Tachycardia HR 109. Imaging: CXR: Interval removal of endotracheal tube. Right IJ venous catheter unchanged in position with tip in SVC. Small 3 mm densities project over the upper and mid chest without change which could represent foreign bodies. Heart size and pulmonary vascularity normal. Mild basilar atelectasis. No focal consolidation. Tiny bilateral pleural effusions. Venous doppler US bilateral lower extremities : 1. Nonocclusive thrombus in right common femoral and proximal femoral veins. 2. No evidence of left lower extremity DVT. Assessment and Plan: Jie Cullen is a 64 yr old paraplegic male with a history of HTN, HPL, h/o bilateral LE DVT s/p IVC on chronic coumadin, Ependymoma dx 1999 who completed Radical resection of thoracic spinal cord tumor 04/11/2010 stemming from Thoracic ependymoma. Hypotension: dd hypovolemia, cardiac, anemia, sepsis, medications, adrenal insufficiency, PE. He hasresponded well to IVFs, denies any chest pain, shortness of breath, lightheaded, headache, change invision, fevers/chills. Afebrile. Wbc normal. UC with no growth. cxr with no sign of infx. --change IVFs to normal saline increase rate. --dc lasix at this time to increase intravascular volume --he does have acute blood loss anemia, hgb last checked 9.3 repeat stat now. --He does not not appear septic, afebrile, no wbc, cxr neg, if patient develops fever- order blood cultures, UA stat. --and change in MS recommend stat CT. Currently Neuro is intact from neck up. --low indication for adrenal insufficiency, I will check cortisol level. --he does have DVT clot burden in RLE and is at risk for PE. He denies chest pain, but has been complaining of bilateral shoulder pain. He was on therapeutic enoxaparin preoperatively and has not beenrestarted on any anticoagulation since surgery 2 days ago secondary to increased surgical bleeding risk. He is on supplemental O2 2L and 96% at this level, he denies any shortness of breath. --repeat EKG, trops have been negative since yesterday --he is on significant amount of muscle relaxers including intrathecal baclofen pump that PMR is managing as well a pain medication decrease as patient is able to. Tachycardia: dd--hypovolemia, acute anemia, medications, sepsis, PE. EKG from 2 days ago postoperatively with Sinus tachycardia no ischemic changes noted. He had 3 negative trops completed over the past 2 days. No reports of chest pain. He has been receiving 80mg lasix BID in addition to fluid bolus. Pt appaers euvolemic on exam --repeat EKG --CTA RLE DVT on chronic anticoagulation: restart enoxaparin today per primary team however at prophylactic dosing because he is still at increased bleeding risk postoperatively. Also start coumadin today atoutpatient dosing 7.5mg. Check INR tomorrow. Acute blood loss anemia; hgb drop est 3g from preop value. He denies any chest pain, shortness of breath, dizziness, severe fatigue. He is tachycardic and IVF are running. No history of CAD. --no indication for blood transfusion at this time --stat hgb now with persistent hypotension HTN: on BB, lasix as outpatient. Holding anti-hypertensive at this time with hypotension. Radical resection of thoracic spinal cord tumor POD2: EBl 150cc, GETA, no complications per operative report however patient was started on pressors to maintain blood pressure and experienced respiratory failure unable to be weaned from ventilator so he was admitted to SICU postoperatively. DVT prophyl axis--start prophylactic enoxaparin today, pain management, activity per NSG. Thank you for the opportunity to participate in the care of this patient. Time I spent in consultation on this patient was 110 minutes, over 50% of which was spent in counseling and coordinating care. Report Completed by: Cecile Browne PA-C Pager: [phone] Martha Thomas - 04/12/2010 7:47 PM CDT [facility] PM&R Consult Note () Date of service: 04/12/2010 I was asked by Maurice Kirk to evaluate Jie Cullen for eval ITB . Chief Complaint: S/p surgery eval pump Encounter Diagnoses Code Name Primary? 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 518.81 Acute Respiratory Failure 64yo male with known thoracic ependymoma admitted to [facility] on 04/11/2010 He was initially diagnosed with thoracic ependymoma in 1999. Since then he has had multiple surgeries and undergone radiation therapy. He has had recurrence of his tumor with worsening neurologic function including LE weakness and paresthesias, neurogenic bladder and LE spasticity. Despite previous radiation and surgery tumor has enlarged and patient symptoms of LE weakness and decreased sensation have increased. Patient is currently wheelchair bound and self caths. Underwent Radical resection of thoracic spinal cord tumor on 04/11/2010. Patient tells me that has a baclofen pump implanted. PMR called to eval pump. 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 DVT on coumadin/lovenox, HTN, dyslipidemia SH: , no smoke, no ETOH Medications Prior to Admission: Medications marked Taking as of 04/11/10 encounter (Hospital Encounter) with MAURICE BARON: atorvastatin (LIPITOR) 40 MG tablet Take 1 Tab by mouth daily. Disp: Rfl: baclofen (AKA LIORESAL) 10 MG [...] mouth two times a day. Disp: Rfl: enoxaparin (AKA LOVENOX) 150 MG/ML injection Inject 0.7 mL subcutaneously every 12 hours. Disp: 2 mLRfl: 0 furosemide (AKA LASIX) 80 MG tablet Take 80 mg by mouth daily. Disp: Rfl: Gabapentin (AKA NEURONTIN) 100 MG tablet Take 2 Tabs by mouth three times a day. Disp: Rfl: LORazepam (AKA ATIVAN) 0.5 MG tablet Take 2 Tabs by mouth three times a day. Disp: Rfl: metoPROLOL tartrate (LOPRESSOR) 50 MG tablet Take 1 Tab by mouth two times a day. Disp: Rfl: mupirocin (AKA BACTROBAN) 2 % ointment Apply 0.5 Inches topically two times a day. Disp: 5 g Rfl: 0 potassium chloride (K-DUR) 20 MEQ tablet Take 1 Tab by mouth 4 times a day. Disp: Rfl: senna (AKA SENOKOT) 8.6 MG tablet Take 1 Tab by mouth 4 times a day. Disp: Rfl: TRIMETHOPRIM OR Take 100 mg by mouth daily. Disp: Rfl: Current inpatient medications: Current hospital medications Medication Dose Route Frequency ??? atorvastatin (aka LIPITOR) tablet 40 mg 40 mg Oral Daily ??? baclofen (aka LIORESAL) tablet 20 mg 20 mg Oral BID PRN ??? bisacodyl (aka DULCOLAX) suppository 10 mg 10 mg Rectal DAILY PRN ??? citalopram (aka CELEXA) tablet 40 mg 40 mg Oral Daily ??? cyclobenzaprine (aka FLEXERIL) tablet 10 mg 10 mg Oral BID ??? docusate sodium (aka ENEMEEZ) enema 1 Enema 1 Enema Rectal Daily ??? furosemide (aka LASIX) tablet 80 mg 80 mg Oral Daily ??? gabapentin (aka NEURONTIN) capsule 200 mg 200 mg Oral TID ??? insulin regular (aka humULIN R, novoLIN R) injection 2-12 Units 2-12 Units SC PRN based on BloodSugar ??? LORazepam (aka ATIVAN) tablet 1 mg 1 mg Oral TID ??? magnesium hydroxide (aka MILK OF MAGNESIA) oral liquid 30 mL 30 mL Oral DAILY PRN ??? MORphine injection 1-4 mg 1-4 mg IV Q2H PRN ??? ondansetron (aka ZOFRAN) injection 4 mg 4 mg IV Q6H PRN ??? patient's own pump IV Continuous ??? polyethylene glycol 3350 (aka GLYCOLAX) powder 17 g 17 g Oral Daily ??? potassium chloride (aka K-DUR,KLOR-CON M) extended release tablet 20 mEq 20 mEq Oral QID ??? senna (aka SENOKOT) tablet 8.6 mg 1 Tab Oral QID ??? trimethoprim (aka TRIMPEX) tablet 100 mg 100 mg Oral Daily ??? vancomycin (aka VANCOCIN) 1,500 mg in NaCl 0.9 % 500 mL IV PIGGYBACK 1.5 g IV Q12H(NS) Allergies: Review of patient's allergies indicates no known allergies. No past surgical history on file. No [...] No narrative on file Functional History: w/chair dependent. Review of Systems: Reports pain and soreness all over. OBJECTIVE: Patient Vital Signs in the past 24 hrs: Height Wt - Scale Temp Temp src Pulse BP Resp SpO2 Oximetry Done On 04/12/10 1800 - - 98 ??F (36.7 ??C) Oral - - - - - 04/12/10 1700 - - - - 111 107/64 mmHg 20 98 % O2 04/12/10 1600 - - 98.5 ??F (36.9 ??C) Oral 108 103/70 mmHg 18 99 % O2 04/12/10 1500 - - - - 105 131/70 mmHg 20 99 % - Exam: Gen: No acute distress, alert and oriented times 3, affect is normal Abd pump in the R LQ. Extremities:no spasms noted. Procedure note: Patient with pump located in the R lower abdominal quadrant. Baclofen pump interrogated: Last change on 03/09/2010 Pump serial number: [id number] Infusion drug: Baclofen Concentration: 1,000 mcg/ml Infusion mode: simple continuous Dose per day: baclofen 225.6 mcg/day [place] volume 4.6 ml Low reservoir alarm volume 1.5 ml Refill interval: 13 days Alarm date: 04/25/2010 Alarms enabled. 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 Pump settings unchanged and pump is currently working. ITB was interrogated and remains with above dose and settings. Alarms enabled. Next refill date before/on 04/25/2010. Will eval tomorrow and possibly increase daily dose if back spasms are an issue.Discussed with patient and . Thank you for your consult. Martha South MD cc: Maurice Baron X --- End of Report --- Yudith Sanders - 04/11/2010 10:04 PM CDT [facility] SICU Critical Care Progress Note Date: 04/11/2010 Date of service: 04/11/2010 Diagnosis: Thoracic empendymoma Maurice Baron XNeurosurgery 64 yr, male S/P: Radical resection of thoracic spinal cord tumor Post-Op Day: #0, ICU Day: #1 HPI/ROS: This 64 yo M with hx of spinal cord tumor presented to [facility] today for non-emergent tumorresection. He was initially diagnosed with thoracic ependymoma in 1999. Since then he has had multiple surgeries and undergone radiation therapy. He has had recurrence of his tumor with worsening neurologic function including LE weakness and paresthesias, neurogenic bladder and LE spasticity. He is now s/p tumor resection. Surgery went well. EBL ~150ml. He was maintained on neosynephrine throughout the case. UOP adequate. He was not extubated post-op. He arrives to the SICU in stable condition, off n eosynephrine. Central line and arterial line placed in the OR. PMH 1. Hypertension 2. Hyperlipidemia 3. Epedymoma with resulting paraplegia Meds 1. Atorvastatin 2. Baclofen (po and intrathecal) 3. Cyclobenzaprine 4. Lovenox 5. Lasix 6. Neurontin 7. Ativan 8. Metoprolol 9. K-dur 10. Senna 11. Trimethoprim No Known Allergies History Substance Use Topics ??? Tobacco Use: Never ??? Alcohol Use: No Meds: Current hospital medications Medication Dose Route Frequency ??? acetaminophen (aka TYLENOL) tablet 325-650 mg 325-650 mg Oral Q4H PRN ??? atorvastatin (aka LIPITOR) tablet 40 mg 40 mg Oral Daily ??? baclofen (aka LIORESAL) tablet 20 mg 20 mg Oral BID PRN ??? bisacodyl (aka DULCOLAX) suppository 10 mg 10 mg Rectal DAILY PRN ??? bupicacaine-EPINEPHrine 0.25-1:241568 % injection Intra-Op ??? citalopram (aka CELEXA) tablet 40 mg 40 mg Oral Daily ??? cyclobenzaprine (aka FLEXERIL) tablet 10 mg 10 mg Oral BID ??? dexamethasone (aka DECADRON) injection 10 mg 10 mg IV SDS ??? docusate sodium (aka ENEMEEZ) enema 1 Enema 1 Enema Rectal Daily ??? famotidine (aka PEPCID) tablet 20 mg 20 mg Oral BID ??? furosemide (aka LASIX) tablet 80 mg 80 mg Oral Daily ??? gabapentin (aka NEURONTIN) capsule 200 mg 200 mg Oral TID ??? gelatin sponge with thrombin (GELFOAM PLUS) dressing Intra-Op ??? HYDROmorphone (aka DILAUDID) 10 mg in NaCl 0.9 % 50 mL infusion IV Continuous ??? insulin regular (aka humULIN R, novoLIN R) injection 2-12 Units 2-12 Units SC PRN based on BloodSugar ??? lactated ringers infusion 1,000 mL 1,000 mL IV SDS ??? lansoprazole (aka PREVACID) capsule 30 mg 30 mg Oral Daily ??? LORazepam (aka ATIVAN) injection 1 mg 1 mg IV Once ??? LORazepam (aka ATIVAN) tablet 1 mg 1 mg Oral TID ??? magnesium hydroxide (aka MILK OF MAGNESIA) oral liquid 30 mL 30 mL Oral DAILY PRN ??? magnesium sulfate premade infusion 2 g 2 g IV PRN Electrolyte Protocol ??? magnesium sulfate premade infusion 2 g 2 g IV PRN Electrolyte Protocol ??? magnesium sulfate premade infusion 2 g 2 g IV PRN Electrolyte Protocol ??? magnesium sulfate-dextrose 5% 1 g/100 mL premixed infusion 1 g IV PRN Electrolyte Protocol ??? metoPROLOL tartrate (aka LOPRESSOR) tablet 50 mg 50 mg Oral BID ??? midazolam (aka VERSED) injection 1 mg 1 mg IV Q2H PRN ??? NaCl 0.9 % infusion 1,000 mL 1,000 mL IV Continuous ??? NaCl 0.9 % SOLN with EPINEPHrine Intra-Op ??? NaCl 0.9 % SOLN with VANCOCIN HCL 1 g Intravenous (Continuous Infusion) Intra-Op ??? ondansetron (aka ZOFRAN) injection 4 mg 4 mg IV Q6H PRN ??? phenylephrine (aka GANGA-SYNEPHRINE) 50 mg in NaCl 0.9 % 500 mL infusion 10 mcg/min IV Titrate ??? polyethylene glycol 3350 (aka GLYCOLAX) powder 17 g 17 g Oral Daily ??? potassium chloride (aka K-DUR,KLOR-CON M) extended release tablet 20 mEq 20 mEq Oral QID ??? potassium chloride 10 mEq/50 mL IV piggyback 10 mEq IV PRN Electrolyte Protocol ??? potassium chloride 10 mEq/50 mL IV piggyback 10 mEq IV PRN Electrolyte Protocol ??? potassium chloride 10 mEq/50 mL IV piggyback 10 mEq IV PRN Electrolyte Protocol ??? potassium chloride 20 MEQ/50ML 20 mEq 20 mEq IV PRN Electrolyte Protocol ??? potassium chloride 20 MEQ/50ML 20 mEq 20 mEq IV PRN Electrolyte Protocol ??? potassium chloride 20 MEQ/50ML 20 mEq 20 mEq IV PRN Electrolyte Protocol ??? potassium chloride 20 MEQ/50ML 20 mEq 20 mEq IV PRN Electrolyte Protocol ??? potassium chloride oral liquid 20 mEq 20 mEq Oral PRN Electrolyte Protocol ??? potassium chloride oral liquid 40 mEq 40 mEq Oral PRN Electrolyte Protocol ??? potassium chloride oral liquid 40 mEq 40 mEq Oral PRN Electrolyte Protocol ??? potassium phosphate 10 mmol in NaCl 0.9 % 250 mL infusion 10 mmol IV PRN Electrolyte Protocol ??? potassium phosphate 15 mmol in NaCl 0.9 % 250 mL infusion 15 mmol IV PRN Electrolyte Protocol ??? potassium phosphate 15 mmol in NaCl 0.9 % 250 mL infusion 15 mmol IV PRN Electrolyte Protocol ??? propofol (aka DIPRIVAN) injection 1,043 mcg/min 10 mcg/kg/min IV Titrate ??? senna (aka SENOKOT) tablet 8.6 mg 1 Tab Oral QID ??? sodium phosphate 10 mmol in NaCl 0.9 % 250 mL infusion 10 mmol IV PRN Electrolyte Protocol ??? sodium phosphate 15 mmol in NaCl 0.9 % 250 mL infusion 15 mmol IV PRN Electrolyte Protocol ??? sodium phosphate 15 mmol in NaCl 0.9 % 250 mL infusion 15 mmol IV PRN Electrolyte Protocol ??? thrombin-gelatin (aka FLOSEAL) syringe Intra-Op ??? trimethoprim (aka TRIMPEX) tablet 100 mg 100 mg Oral BID ??? vancomycin (aka VANCOCIN) 1,500 mg in NaCl 0.9 % 500 mL IV PIGGYBACK 1.5 g IV Q12H(NS) Neuro Right Pupil: 4 mm and Sluggish; Left Pupil: 4 mm and Sluggish Motor Sensory: Purposeful movement of upper extremities. Following commands. GCS: (Eyes) 4 + (Motor) 6 + (Voice) 1 = 11i HOB: Flat Pain/Sedation Medication(s): Dilaudid gtt, Propofol Pain Scale (0-10): 3 No data found. Lab Results Component Value Date/Time ??? SODIUM 141 04/05/10 10:52 AM Assessment/Plan: Thoracic ependymoma: Nonmetastatic, but locally recurring. He is now POD#0 s/p tumor resection. Pt is to be flat per neurosurgery order. He has had multiple resections of this tumor in the past and is a paraplegic. He has a baclofen pump for spasticity in his LEs. Will continue his neurontin, prn baclofen and flexeril. Frequent neuro exams over night. No BP goals. Await further NS recommendations. Post-op MRI ordered. Pain control and sedation: Dilaudid gtt for pain and propofol for sedation. Continue home ativan andcelexa. Pulmonary Exam: Breath sounds clear to auscultation Vent Day #: 1 CXR: ECG leads overlie the chest. Endotracheal tube tip overlies the tracheal air column midway between the thoracic inlet and the jeffry. Right internal jugular central line overlies the superior venacava above its junction with right atrium. Linear density in the right lung base with volume loss likely atelectasis. Patchy medial pneumonitis not excluded. Followup recommended. Resp Rate (24hrs), Resp Av Min: 16 Max: 16 O2 Sats (24hrs), SpO2 Av.5 % Min: 97 % Max: 100 % Patient Machine Settings in the past 8 hrs: Mode Breath Type Set Vt Set Pressure Set O2 Vent (%) PEEP Pressure Support DO NOT USE Mode Set Rate 04/11/102051 A/C VC 700 ML - 40 % 5 CM H2O - - 12 BPM Patient Measured Vent Parameters in the past 8 hrs: Peak Insp Pressure Plateau Pressure Mean Airway Pressure Compliance Total Respirations Exhaled Total MV Do Not UseExhaled Total MV 04/11/102051 21 CM H20 18 CM H20 9.3 CM H20 - 12 BREATHS/MIN 8.5 lpm - No results found for this basename: ph,pco2,po2,hco3,be,bd,mode,fio2 Assessment/Plan: Acute respiratory failure requiring mechanical ventilation: Not intubated post- operatively. Plan to wean and extubate as able. He has failed initial weaning trial due to apnea and low volumes. Will start propofol for sedation and plan to wean again later tonight. Minimize vent settings as able. CV Exam: Regular rhythm without murmur. Tachycardia. Shove Up: Sinus tachycardia. 12-Lead EKG: Sinus tachycardia. No changes of ischemia. Heart Rate (24hrs), Pulse Av Min: 76 Max: 76 Systolic (24hrs), Av mmHg, Min:152 mmHg, Max:152 mmHg Diastolic (24hrs), Av mmHg, Min:104 mmHg, Max:104 mmHg No data found. No results found for this basename: lact,trop,bnp Assessment/Plan: Hypertension: Normally on metoprolol. Will hold for now as pt was on neosynephrine in the OR. Currently has normal BP off of ganga. Hypercholesterolemia: Resume statin. GI Exam: Soft, non-tender, non-distended Tubes/Drains: None Nutrition: None No results found for this basename: ast,alt,alkphos,ggt,bilirubintot,bilirubindir,dana,lipase,alb,palb ,fe,tibcc,ferr,lact Assessment/Plan: No acute issues. Hopefully can extubate soon and begin oral diet. OG placed in [facility]. Renal Last 2 Encounter Wt Readings: Admission (Current) on 04/11/2010 04/11/2010 11:53 AM Weight: 104.327 kg (230 lb) Surgery on 04/11/2010 04/11/2010 11:53 AM Weight: 104.327 kg (230 lb) MIVF: NS at 100 cc/hour Patient Urine Catheter Output (mL) in the past 8 hrs: Urine Catheter Output (mL) 04/11/101999 75 ML Intake/Output Summary (Last 24 hours) at 04/11/104 Last data filed at 04/11/101999 Gross per 24 hour Intake 0 ml Output 75 ml Net -75 ml Lab Results Component Value Date/Time ??? SODIUM 141 04/05/10 10:52 AM ??? K 4.4 04/05/10 10:52 AM ??? CHLORIDE 103 04/05/10 10:52 AM ??? CO2 30 04/05/10 10:52 AM ??? BUN 11 04/05/10 10:52 AM ??? CREATININE 0.96 04/05/10 10:52 AM ??? CA 9.3 04/05/10 10:52 AM Assessment/Plan: No acute issues. Will start electrolyte protocol. He is on lasix prn for LE swelling. Hold for now. Extremities Extremities warm, pulses palpable, and no edema present No results found for this basename: ck Assessment/Plan: No acute issues. Heme Lab Results Component Value Date/Time ??? HGB 12.2* 04/06/10 5:10 AM ??? HCT 34.8* 04/06/10 5:10 AM ??? RBC 3.98* 04/06/10 5:10 AM ??? PLTS 150 04/06/10 5:10 AM ??? PROTIME 12.5 04/11/10 11:57 AM ??? INR 0.9 04/11/10 11:57 AM ??? PTT 27.0 04/11/10 11:57 AM Assessment/Plan: Hx of DVT: Normally on coumadin for DVT. On lovenox pre-op. Will resume lovenox and coumadin when okay with neurosurgery. ID Temp (24hrs), Min:96 ??F (35.6 ??C), Max:99.5 ??F (37.5 ??C) Lab Results Component Value Date/Time ??? WBC 8.1 04/06/10 5:10 AM Antibiotic(s): Vancomycin; Day # 1 Assessment/Plan: Continue neel-op vanco. Hx of UTI secondary to indwelling de la cruz: Normally on low dose of trimethoprim. Will continue. Will also check urine culture to ensure no current infection. Endocrine Sliding scale Lab Results Component Value Date/Time ??? GLUCOSE 99 04/05/10 10:52 AM ??? GLWB 183* 04/11/10 8:28 PM Assessment/Plan: No acute issues. Prophylaxis Skin Exam: No rashes or lesions, No erythema of line sites Daily Line Reassessment: #1-CVC in Right, Internal Jugular; Day # 1; Indication: Blood drawing, Monitoring, IV access; Plan: Continue #2-[place] in Left, Radial; Day # 1; Indication: Blood drawing, Monitoring; Plan: Continue Assessment/Plan: GI Prophylaxis: H2. DVT Prophylaxis: LUIS, SCD. Diagnostic Tests Personally Reviewed: Imaging studies, Lab results, 12-Lead EKG Disposition SICU Yudith Sanders MD Jie Jc - 04/11/2010 10:04 PM CDT I discussed this patient with Dr. Sanders and agree with her plan. Jie Jc MD 04/12/2010, 9:22 AM documented in this encounter OR Notes &P - [facility], Provider - 03/29/2010 12:00 AM CDT documented in this encounter Miscellaneous Notes [place] - [facility], PROVIDER - 04/25/2010 12:00 AM CDT [facility] - [facility], PROVIDER - 04/20/2010 12:00 AM CDT [facility] - [facility], PROVIDER - 04/18/2010 12:00 AM CDT [facility] - [facility], PROVIDER - 04/11/2010 12:00 AM CDT [facility] - [facility], PROVIDER - 04/11/2010 12:00 AM CDT [facility] - [facility], PROVIDER - 04/11/2010 12:00 AM CDT [facility] - [facility], PROVIDER - 04/11/2010 12:00 AM CDT documented in this encounter Plan of Treatment Not on filedocumented as of this encounter Procedures Procedure Name Priority Date/Time Associated Comments Diagnosis GLUCOSE, WHOLE Routine 04/19/2010 10:05 Results f or this BLOOD POCT PM CDT procedure are i n the results section. GLUCOSE, WHOLE Routine 04/19/2010 5:02 Results fo r this BLOOD POCT PM CDT procedure are i n the results section. XR ABD DECUB ONLY Discharge 04/19/2010 3:05 Results for this Decision PM CDT procedure are i n the results section. XR ABD 2 VIEWS Discharge 04/19/2010 10:51 Results f or this ROUTINE Decision AM CDT procedure are i n the results section. INR/PROTIME Routine 04/19/2010 7:25 Results for this AM CDT procedure are i n the results section. PURPLE HOLD TUBE Routine 04/19/2010 6:30 Results for this AM CDT procedure are i n the results section. GLUCOSE, WHOLE Routine 04/18/2010 9:28 Results fo r this BLOOD POCT PM CDT procedure are i n the results section. INR/PROTIME Routine 04/18/2010 9:00 Results for this AM CDT procedure are i n the results section. HEMOGLOBIN, BLOOD Routine 04/18/2010 6:50 Results for this AM CDT procedure are i n the results section. GLUCOSE, WHOLE Routine 04/17/2010 5:29 Results fo r this BLOOD POCT PM CDT procedure are i n the results section. GLUCOSE, WHOLE Routine 04/17/2010 12:07 Results f or this BLOOD POCT PM CDT procedure are i n the results section. GLUCOSE, WHOLE Routine 04/17/2010 8:07 Results fo r this BLOOD POCT AM CDT procedure are i n the results section. BASIC METABOLIC Routine 04/17/2010 7:15 Results f or this PANEL AM CDT procedure are i n the results section. COMPLETE BLOOD Routine 04/17/2010 7:15 Results fo r this COUNT-NO DIFF AM CDT procedure are in the results section. INR/PROTIME Routine 04/17/2010 7:15 Results for this AM CDT procedure are i n the results section. GLUCOSE, WHOLE Routine 04/16/2010 9:00 Results fo r this BLOOD POCT PM CDT procedure are i n the results section. OSMOLALITY, URINE Routine 04/16/2010 4:40 Results for this PM CDT procedure are i n the results section. BASIC METABOLIC Routine 04/16/2010 1:20 Results f or this PANEL PM CDT procedure are i n the results section. OSMOLALITY Routine 04/16/2010 1:20 Results for this PM CDT procedure are i n the results section. GLUCOSE, WHOLE Routine 04/16/2010 11:22 Results f or this BLOOD POCT AM CDT procedure are i n the results section. BASIC METABOLIC Routine 04/16/2010 10:56 Results for this PANEL AM CDT procedure are i n the results section. ADD ON LAB STAT 04/16/2010 10:13 Results for this ORDERS(SPECIMEN IN AM CDT procedure are in LAB) the results section. GLUCOSE, WHOLE Routine 04/16/2010 7:58 Results fo r this BLOOD POCT AM CDT procedure are i n the results section. INR/PROTIME Routine 04/16/2010 6:00 Results for this AM CDT procedure are i n the results section. BASIC METABOLIC Routine 04/15/2010 7:00 Results f or this PANEL AM CDT procedure are i n the results section. INR/PROTIME Routine 04/15/2010 7:00 Results for this AM CDT procedure are i n the results section. URINE CULTURE Routine 04/14/2010 3:05 Results for this PM CDT procedure are i n the results section. US LOWER EXTREMITY Routine 04/14/2010 11:23 Resul ts for this BILAT VENOUS AM CDT procedure are i n DOPPLER the results section. BASIC METABOLIC Routine 04/14/2010 10:00 Results for this PANEL AM CDT procedure are i n the results section. ADD ON LAB STAT 04/14/2010 8:51 Results for this ORDERS(SPECIMEN IN AM CDT procedure are in LAB) the results section. INR/PROTIME Routine 04/14/2010 6:00 Results for this AM CDT procedure are i n the results section. ECG 12-LEAD ROUTINE Routine 04/13/2010 7:41 Resul ts for this PM CDT procedure are i n the results section. CT ANGIO CHEST W IV STAT 04/13/2010 7:01 Resul ts for this CONT PE STUDY PM CDT procedure are in the results section. ADD ON LAB STAT 04/13/2010 5:25 Results for this ORDERS(SPECIMEN IN PM CDT procedure are in LAB) the results section. URINE CULTURE Routine 04/13/2010 5:25 Results for this PM CDT procedure are i n the results section. UA WITH MICROSCOPIC Routine 04/13/2010 5:25 Resul ts for this PM CDT procedure are i n the results section. ADD ON LAB STAT 04/13/2010 3:55 Results for this ORDERS(SPECIMEN IN PM CDT procedure are in LAB) the results section. HEMOGLOBIN, BLOOD STAT 04/13/2010 3:55 Results for this PM CDT procedure are i n the results section. FREE T4 Routine 04/13/2010 3:55 Results for this PM CDT procedure are i n the results section. CORTISOL STAT 04/13/2010 3:55 Results for this PM CDT procedure are i n the results section. TSH, SENSITIVE Routine 04/13/2010 3:55 Results fo r this (WITH REFLEX) PM CDT procedure are in the results section. XR PORTABLE CHEST 1 Routine 04/13/2010 8:44 Resul ts for this VIEW AM CDT procedure are i n the results section. BASIC METABOLIC Routine 04/13/2010 5:45 Results f or this PANEL AM CDT procedure are i n the results section. COMPLETE BLOOD Routine 04/13/2010 5:45 Results fo r this COUNT-NO DIFF AM CDT procedure are in the results section. MAGNESIUM Routine 04/13/2010 5:45 Results for this AM CDT procedure are i n the results section. PHOSPHORUS Routine 04/13/2010 5:45 Results for this AM CDT procedure are i n the results section. HEMOGLOBIN, BLOOD STAT 04/13/2010 2:30 Results for this AM CDT procedure are i n the results section. GLUCOSE, WHOLE Routine 04/12/2010 3:59 Results fo r this BLOOD POCT PM CDT procedure are i n the results section. GLUCOSE, WHOLE Routine 04/12/2010 12:26 Results f or this BLOOD POCT PM CDT procedure are i n the results section. US LOWER EXTREMITY Routine 04/12/2010 12:07 Resul ts for this BILAT VENOUS PM CDT procedure are i n DOPPLER the results section. TROPONIN I Specified Time 04/12/2010 10:59 Results f or this AM CDT procedure are i n the results section. MR THORACIC SPINE Routine 04/12/2010 10:35 Result s for this W/WO IV CONT AM CDT procedure are i n the results section. GLUCOSE, WHOLE Routine 04/12/2010 7:57 Results fo r this BLOOD POCT AM CDT procedure are i n the results section. TROPONIN I Specified Time 04/12/2010 4:25 Results fo r this AM CDT procedure are i n the results section. ADD ON LAB STAT 04/12/2010 4:24 Results for this ORDERS(SPECIMEN IN AM CDT procedure are in LAB) the results section. BASIC METABOLIC Routine 04/12/2010 4:24 Results f or this PANEL AM CDT procedure are i n the results section. COMPLETE BLOOD Routine 04/12/2010 4:24 Results fo r this COUNT-NO DIFF AM CDT procedure are in the results section. MAGNESIUM STAT 04/12/2010 4:24 Results for this AM CDT procedure are i n the results section. PHOSPHORUS STAT 04/12/2010 4:24 Results for this AM CDT procedure are i n the results section. GLUCOSE, WHOLE Routine 04/12/2010 4:02 Results fo r this BLOOD POCT AM CDT procedure are i n the results section. GLUCOSE, WHOLE Routine 04/12/2010 12:02 Results f or this BLOOD POCT AM CDT procedure are i n the results section. IONIZED CALCIUM, Routine 04/11/2010 10:31 Results for this WHOLE BLOOD PM CDT procedure are i n (VENOUS) the results section. URINE CULTURE Routine 04/11/2010 10:30 Results fo r this PM CDT procedure are i n the results section. BLOOD GAS, ARTERIAL Routine 04/11/2010 10:30 Resu lts for this PM CDT procedure are i n the results section. BASIC METABOLIC Routine 04/11/2010 10:30 Results for this PANEL PM CDT procedure are i n the results section. TROPONIN I Specified Time 04/11/2010 10:30 Results f or this PM CDT procedure are i n the results section. COMPLETE BLOOD Routine 04/11/2010 10:30 Results f or this COUNT-NO DIFF PM CDT procedure are in the results section. MAGNESIUM Routine 04/11/2010 10:30 Results for this PM CDT procedure are i n the results section. PHOSPHORUS Routine 04/11/2010 10:30 Results for this PM CDT procedure are i n the results section. INR/PROTIME Routine 04/11/2010 10:30 Results for this PM CDT procedure are i n the results section. XR PORTABLE CHEST 1 STAT 04/11/2010 9:03 Resul ts for this VIEW PM CDT procedure are i n the results section. ECG 12-LEAD ROUTINE Routine 04/11/2010 9:00 Resul ts for this PM CDT procedure are i n the results section. MRSA ADMIT SCREEN Routine 04/11/2010 9:00 Results for this PM CDT procedure are i n the results section. GLUCOSE, WHOLE Routine 04/11/2010 8:28 Results fo r this BLOOD POCT PM CDT procedure are i n the results section. AEROBIC CULTURE Routine 04/11/2010 4:30 Results f or this PM CDT procedure are i n the results section. ANAEROBIC CULTURE Routine 04/11/2010 4:30 Results for this PM CDT procedure are i n the results section. AEROBIC CULTURE Routine 04/11/2010 4:00 Results f or this PM CDT procedure are i n the results section. AEROBIC CULTURE Routine 04/11/2010 4:00 Results f or this PM CDT procedure are i n the results section. AEROBIC CULTURE Routine 04/11/2010 4:00 Results f or this PM CDT procedure are i n the results section. ANAEROBIC CULTURE Routine 04/11/2010 4:00 Results for this PM CDT procedure are i n the results section. ANAEROBIC CULTURE Routine 04/11/2010 4:00 Results for this PM CDT procedure are i n the results section. ANAEROBIC CULTURE Routine 04/11/2010 4:00 Results for this PM CDT procedure are i n the results section. IMAGE GUIDANCE ADD AM Admit 04/11/2010 2:39 THORACIC TUMOR ON SPINE (*) PM CDT Case Notes DEBULK SPINAL CORD THORACIC TUMOR O-ARM ADD ON (*) AM Admit 04/11/2010 2:39 PM CDT THORACIC TUMOR Case Notes DEBULK SPINAL CORD THORACIC TUMOR FUSION POSTERIOR APPROACH THORACIC AM Admit 04/11/2010 2: 39 PM CDT THORACIC TUMOR SPINE Case Notes DEBULK SPINAL CORD THORACIC TUMOR FUSION APPROACH (STAND ALONE) AM Admit 04/11/2010 2:39 PM CDT T HORACIC TUMOR THORACIC AND/OR LUMBAR POSTERIOR Case Notes DEBULK SPINAL CORD THORACIC TUMOR ABO RH & ANTIBODY SCREEN Routine 04/11/2010 11:57 AM CDT Results for this (TYPE & SCREEN) procedure ar e in the results section . APTT (ACTIVATED PARTIAL Routine 04/11/2010 11:57 AM CDT Results for this THROMBOPLASTIN TIME procedur e are in the results section . INR/PROTIME Routine 04/11/2010 11:57 AM CDT Resu lts for this procedure are i n the results section . SURGICAL PATH Routine 04/11/2010 7:00 AM CDT Resu lts for this procedure are i n the results section . EKG IP 04/11/2010 12:00 AM CDT Resu lts for this procedure are i n the results section . documented in this encounter Results GLUCOSE, WHOLE BLOOD POC (04/19/2010 10:05 PM CDT) athologist Signature Glucose, Whole 100 70 - 180 REGIONS Blood mg/dl Comment: Point of Care Testing RN Notified Specimen Anatomical Collection Method Collection Time Receive d Time (Source) Location / / Volume Laterality 04/19/2010 10:05 04/19/2010 PM CDT 10:07 PM CDT Maurice Baron MD LAB_1 Performing Organization Address [facility] Phon e Number [address] [address] [place], [place] [phone] GLUCOSE, WHOLE BLOOD POC (04/19/2010 5:02 PM CDT) P athologist Signature Glucose, Whole 133 70 - 180 REGIONS Blood mg/dl Comment: Point of Care Testing RN Notified Specimen Anatomical Collection Method Collection Time Receive d Time (Source) Location / / Volume Laterality 04/19/2010 5:02 PM 0 5:04 CDT PM CDT Maurice Baron MD LAB_1 Performing Organization Address [facility] Phon e Number [address] [address] [place], [place] [phone] XR ABDOMEN DECUBE ONLY (04/19/2010 3:05 PM CDT) Anatomical Region Laterality Modality Abdomen Computed Radiography Specimen (Source) Anatomical Collection Method Collection Time Re ceived Time Location / / Volume Laterality 04/19/2010 3:05 PM CDT Narrative 04/19/2010 3:26 PM CDT ABDOMEN DECUBITUS 04/19/2010 INDICATION: Abdomen pain, postop. FINDINGS: Decubitus film performed. No e vidence for pneumoperitoneum. Air-filled colon and small bowel. CONCLUSION: No pneumoperitoneum. Procedure Note Mikal Hawkins - 04/19/2010Formattin g of this note might be different from the original. ABDOMEN DECUBITUS 04/19/2010 INDICATION: Abdomen pain, postop. FINDINGS: Decubitus film performed. No e vidence for pneumoperitoneum. Air-filled colon and small bowel. CONCLUSION: No pneumoperitoneum. Criselda Rodriguez PA-C RAD GD XR ABDOMEN ROUTINE 2 VIEWS (04/19/2010 10:51 AM CDT) Anatomical Region Laterality Modality Abdomen Computed Radiography Specimen (Source) Anatomical Collection Method Collection Time Re ceived Time Location / / Volume Laterality 04/19/2010 10:51 AM CDT Narrative 04/19/2010 10:59 AM CDT Abdomen 2 views April 19, 2010 Indication: Pain. Postoperative films. Comparison: None. REPORT: On the decubitus views the lower film has motion and the upper film is primarily of the chest. Patient will be recalled for an additional decubitus film. ??On the decubitus view which is primarily of the chest there is a small lucency seen superiorly between the liver and the abdominal wall. The additional film will be helpful in order to clarify whether this could be free air. Lung bas es are clear. No air-fluid levels or dilated loops of bowel. No evidence o f obstruction. An addendum will be dictated when the ad ditional decubitus film is available. Procedure Note Bianka Mcguire - 04/19/2010Formatting o f this note might be different from the original. Abdomen 2 views April 19, 2010 Indication: Pain. Postoperative films. Comparison: None. REPORT: On the decubitus views the lower film has motion and the upper film is primarily of the chest. Patient will be recalled for an additional decubitus film. On the decubitus view wh ich is primarily of the chest there is a small lucency seen superiorly between the liver and the abdominal wall. The additional film will be helpful in order to clarify whether this could be free air. Lung bas es are clear. No air-fluid levels or dilated loops of bowel. No evidence o f obstruction. An addendum will be dictated when the ad ditional decubitus film is available. Criselda Rodriguez PA-C RAD GD (ABNORMAL) INR/PROTIME (04/19/2010 7:25 AM CDT) P athologist Signature Protime 23.7 (H) 12.0 - 14.5 REGIONS sec INR 2.0 REGIONS Specimen Anatomical Collection Method Collection Time Receive d Time (Source) Location / / Volume Laterality 04/19/2010 7:25 AM 0 7:27 CDT AM CDT Criselda Rodriguez PA-C LAB_1 Performing Organization Address [facility]/[place] [facility] [place] [address] [address] [place], [place] [phone] PURPLE HOLD TUBE (04/19/2010 6:30 AM CDT) [facility] gist Method Time Signature Purple Hold Held in Heme rack for 7 days . A1C test can be added on up to 7 days. REGIONS Stability varies for Heme tests, consult Heme Techs before adding on testing. Specimen Anatomical Collection Method Collection Time Receive d Time (Source) Location / / Volume Laterality 04/19/2010 6:30 AM 0 6:58 CDT AM CDT Maurice Baron MD LAB_1 Performing Organization Address [facility]/ZIP [facility] [place] Phon [place] Number [address] [address] [place], [place] [phone] GLUCOSE, WHOLE BLOOD POC (04/18/2010 9:28 PM CDT) P athologist Signature Glucose, Whole 126 70 - 180 REGIONS Blood mg/dl Comment: Point of Care Testing RN Notified Specimen Anatomical Collection Method Collection Time Receive d Time (Source) Location / / Volume Laterality 04/18/2010 9:28 PM 0 9:36 CDT PM CDT Maurice Baron MD LAB_1 Performing Organization Address [facility] Phon e Number [address] [address] [place], [place] [phone] (ABNORMAL) INR/PROTIME (04/18/2010 9:00 AM CDT) P athologist Signature Protime 19.9 (H) 12.0 - 14.5 REGIONS sec INR 1.6 REGIONS Specimen Anatomical Collection Method Collection Time Receive d Time (Source) Location / / Volume Laterality 04/18/2010 9:00 AM 0 9:33 CDT AM CDT Criselda Rodriguez PA-C LAB_1 Performing Organization Address [facility] Phon e Number [address] [address] [place], [place] [phone] (ABNORMAL) HEMOGLOBIN, BLOOD (04/18/2010 6:50 AM CDT) P athologist Signature Hemoglobin 9.2 (L) 13.5 - 17.5 REGIONS g/dl Specimen Anatomical Collection Method Collection Time Receive d Time (Source) Location / / Volume Laterality 04/18/2010 6:50 AM 0 7:21 CDT AM CDT Criselda Rodriguez PA-C LAB_1 Performing Organization Address [facility] Phon e Number [address] [address] [place], [place] [phone] GLUCOSE, WHOLE BLOOD POC (04/17/2010 5:29 PM CDT) P athologist Signature Glucose, Whole 114 70 - 180 REGIONS Blood mg/dl Comment: Point of Care Testing RN Notified Specimen Anatomical Collection Method Collection Time Receive d Time (Source) Location / / Volume Laterality 04/17/2010 5:29 PM 0 5:31 CDT PM CDT Maurice Baron MD LAB_1 Performing Organization Address City/[facility]/ZIP Code Phon e Number [address] [address] [place], [place] [phone] (ABNORMAL) GLUCOSE, WHOLE BLOOD POC (04/17/2010 12:07 PM CDT) P athologist Signature Glucose, Whole 200 (H) 70 - 180 REGIONS Blood mg/dl Comment: Point of Care Testing RN Notified Specimen Anatomical Collection Method Collection Time Receive d Time (Source) Location / / Volume Laterality 04/17/2010 12:07 04/17/2010 PM CDT 12:12 PM CDT Maurice Baron MD LAB_1 Performing Organization Address [facility] Code Phon e Number [address] [address] [place], [place] [phone] GLUCOSE, WHOLE BLOOD POC (04/17/2010 8:07 AM CDT) P athologist Signature Glucose, Whole 107 70 - 180 REGIONS Blood mg/dl Comment: Point of Care Testing RN Notified Specimen Anatomical Collection Method Collection Time Receive d Time (Source) Location / / Volume Laterality 04/17/2010 8:07 AM 0 8:08 CDT AM CDT Maurice Baron MD LAB_1 Performing Organization Address City/[facility]/ZIP Code Phon e Number [address] [address] [place], [place] [phone] (ABNORMAL) INR/PROTIME (04/17/2010 7:15 AM CDT) P athologist Signature Protime 18.6 (H) 12.0 - 14.5 REGIONS sec INR 1.5 REGIONS Specimen Anatomical Collection Method Collection Time Receive d Time (Source) Location / / Volume Laterality 04/17/2010 7:15 AM 0 9:40 CDT AM CDT Anthony Genao MD LAB_1 Performing Organization Address City/[facility]/ZIP Code Phon e Number [address] [address] [place], [place] [phone] (ABNORMAL) HEMOGRAM/PLTS (04/17/2010 7:15 AM CDT) athologist Signature WBC 4.2 4.0 - 11.0 REGIONS k/ul RBC 2.98 (L) 4.5 - 5.9 REGIONS M/ul Hemoglobin 9.0 (L) 13.5 - 17.5 REGIONS g/dl HCT 26.4 (L) 41.0 - 53.0 REGIONS % MCV 88.4 80 - 100 fl REGIONS MCH 30.1 26 - 34 pg REGIONS MCHC 34.1 32 - 36 REGIONS g/dl RDW 13.6 11.5 - 14.5 REGIONS % Platelets 215 150 - 450 REGIONS k/ul MPV 8.2 6.5 - 10.0 REGIONS fl Specimen Anatomical Collection Method Collection Time Receive d Time (Source) Location / / Volume Laterality 04/17/2010 7:15 AM 0 9:40 CDT AM CDT Anthony Genao MD LAB_1 Performing Organization Address City/State/ZIP Code Phon e Number [facility] [address] [place] [address] [place], [place] [phone] (ABNORMAL) BASIC METABOLIC PANEL (04/17/2010 7:15 AM CDT) athologist Signature BUN 8 7 - 20 REGIONS mg/dl Sodium 141 135 - 145 REGIONS mmol/L Potassium 3.6 3.5 - 5.1 REGIONS mmol/L Chloride 104 98 - 107 REG[facility] mmol/L CO2 32 (H) 22 - 30 REGIONS mmol/L Glucose 83 70 - 180 REGIONS mg/dl Creatinine 0.78 0.66 - REGIONS 1.25 mg/dl GFR, Estimated >60.00 >60 REGIONS ml/min/1.7 3m2 GFR, Est., If >60.00 >60 REGIONS Black ml/min/1.7 3m2 Calcium 8.2 (L) 8.4 - 10.2 REGIONS mg/dl Anion Gap 5 3 - 11 REGIONS (calc.) mmol/L Comment: PLEASE NOTE CHANGE IN REFERENCE RANGE Specimen Anatomical Collection Method Collection Time Receive d Time (Source) Location / / Volume Laterality 04/17/2010 7:15 AM 0 9:40 CDT AM CDT Anthony Genao MD LAB_1 Performing Organization Address City/[facility]/ZIP [facility] [place] Phon e Number [address] [address] [place], [place] [phone] GLUCOSE, WHOLE BLOOD POC (04/16/2010 9:00 PM CDT) P athologist Signature Glucose, Whole 134 70 - 180 REGIONS Blood mg/dl Comment: Point of Care Testing RN Notified Specimen Anatomical Collection Method Collection Time Receive d Time (Source) Location / / Volume Laterality 04/16/2010 9:00 PM 0 9:01 CDT PM CDT Maurice Baron MD LAB_1 Performing Organization Address [facility] Phon e Number [address] [address] [place], [place] [phone] OSMOLALITY, URINE (04/16/2010 4:40 PM CDT) P athologist Signature Osmolality, 327 REGIONS Urine Specimen Anatomical Collection Method Collection Time Receive d Time (Source) Location / / Volume Laterality Urine specimen 04/16/2010 4:40 PM 010 4:54 (specimen) CDT PM CDT Anthony Genao MD LAB_1 Performing Organization Address [facility] Phon e Number [address] [address] [place], [place] [phone] OSMOLALITY (04/16/2010 1:20 PM CDT) P athologist Signature Osmolality 285 280 - 300 REGIONS mosm/kg Specimen Anatomical Collection Method Collection Time Receive d Time (Source) Location / / Volume Laterality 04/16/2010 1:20 PM 0 1:25 CDT PM CDT Anthony Genao MD LAB_1 Performing Organization Address City/[facility]/ZIP [facility] [place] Phon e Number [address] [address] [place], [place] [phone] (ABNORMAL) BASIC METABOLIC PANEL (04/16/2010 1:20 PM CDT) athologist Signature BUN 9 7 - 20 REGIONS mg/dl Sodium 137 135 - 145 REGIONS mmol/L Potassium 3.5 3.5 - 5.1 REGIONS mmol/L Chloride 100 98 - 107 REGIONS mmol/L CO2 31 (H) 22 - 30 REGIONS mmol/L Glucose 133 70 - 180 REGIONS mg/dl Creatinine 0.76 0.66 - REGIONS 1.25 mg/dl GFR, Estimated >60.00 >60 REGIONS ml/min/1.7 3m2 GFR, Est., If >60.00 >60 REGIONS Black ml/min/1.7 3m2 Calcium 8.6 8.4 - 10.2 REGIONS mg/dl Anion Gap 7 3 - 11 REGIONS (calc.) mmol/L Comment: PLEASE NOTE CHANGE IN REFERENCE RANGE Specimen Anatomical Collection Method Collection Time Receive d Time (Source) Location / / Volume Laterality 04/16/2010 1:20 PM 0 1:25 CDT PM CDT Maurice Baron MD LAB_1 Performing Organization Address City/[facility]/ZIP Code Phon e Number [address] [address] [place], [place] [phone] GLUCOSE, WHOLE BLOOD POC (04/16/2010 11:22 AM CDT) athologist Signature Glucose, Whole 148 70 - 180 REGIONS Blood mg/dl Comment: Point of Care Testing RN Notified Specimen Anatomical Collection Method Collection Time Receive d Time (Source) Location / / Volume Laterality 04/16/2010 11:22 04/16/2010 AM CDT 11:28 AM CDT Maurice Baron MD LAB_1 Performing Organization Address [facility] Phon e Number [address] [address] [place], [place] [phone] BASIC METABOLIC PANEL (04/16/2010 10:56 AM CDT) athologist Signature BUN 10 7 - 20 REGIONS mg/dl Sodium 136 135 - 145 REGIONS mmol/L Potassium 3.6 3.5 - 5.1 REGIONS mmol/L Chloride 100 98 - 107 REG[facility] mmol/L CO2 30 22 - 30 REGIONS mmol/L Glucose 147 70 - 180 REGIONS mg/dl Creatinine 0.74 0.66 - REGIONS 1.25 mg/dl GFR, Estimated >60.00 >60 REGIONS ml/min/1.7 3m2 GFR, Est., If >60.00 >60 REGIONS Black ml/min/1.7 3m2 Calcium 8.4 8.4 - 10.2 REGIONS mg/dl Anion Gap 6 3 - 11 REGIONS (calc.) mmol/L Comment: PLEASE NOTE CHANGE IN REFERENCE RANGE Specimen Anatomical Collection Method Collection Time Receive d Time (Source) Location / / Volume Laterality 04/16/2010 10:56 04/16/2010 AM CDT 11:00 AM CDT Maurice Baron MD LAB_1 Performing Organization Address [facility] Phon e Number [address] [address] [place], [place] [phone] ADD ON LAB ORDERS(SPECIMEN IN LAB) (04/16/2010 10:13 AM CDT) Patholo gist Method Time Signature Add On Test Additional REGIONS Testing Ordered by Specimen Anatomical Collection Method Collection Time Receive d Time (Source) Location / / Volume Laterality 04/16/2010 10:13 04/16/2010 AM CDT 10:18 AM CDT Beth Luna MD LAB_1 Performing Organization Address [facility] Phon e Number [address] [address] [place], [place] [phone] GLUCOSE, WHOLE BLOOD POC (04/16/2010 7:58 AM CDT) P athologist Signature Glucose, Whole 113 70 - 180 REGIONS Blood mg/dl Comment: Point of Care Testing RN Notified Specimen Anatomical Collection Method Collection Time Receive d Time (Source) Location / / Volume Laterality 04/16/2010 7:58 AM 0 8:10 CDT AM CDT Maurice Baron MD LAB_1 Performing Organization Address City/[facility]/ZIP Code Phon e Number [address] [address] [place], [place] [phone] (ABNORMAL) INR/PROTIME (04/16/2010 6:00 AM CDT) athologist Signature Protime 16.0 (H) 12.0 - 14.5 REGIONS sec INR 1.3 REGIONS Specimen Anatomical Collection Method Collection Time Receive d Time (Source) Location / / Volume Laterality 04/16/2010 6:00 AM 0 6:22 CDT AM CDT Maurice Baron MD LAB_1 Performing Organization Address [facility]/ZIP [facility] [place] Phon [place] Number [address] [address] [place], [place] [phone] (ABNORMAL) INR/PROTIME (04/15/2010 7:00 AM CDT) athologist Signature Protime 14.8 (H) 12.0 - 14.5 REGIONS sec INR 1.1 REGIONS Specimen Anatomical Collection Method Collection Time Receive d Time (Source) Location / / Volume Laterality 04/15/2010 7:00 AM 0 7:06 CDT AM CDT Cecile Browne PA-C LAB_1 Performing Organization Address City/[facility]/ZIP [facility] [place] Phon e Number [address] [address] [place], [place] [phone] (ABNORMAL) BASIC METABOLIC PANEL (04/15/2010 7:00 AM CDT) athologist Signature BUN 9 7 - 20 REGIONS mg/dl Sodium 136 135 - 145 REGIONS mmol/L Potassium 3.7 3.5 - 5.1 REGIONS mmol/L Chloride 100 98 - 107 REG[facility] mmol/L CO2 31 (H) 22 - 30 REGIONS mmol/L Glucose 91 70 - 180 REGIONS mg/dl Creatinine 0.77 0.66 - REGIONS 1.25 mg/dl GFR, Estimated >60.00 >60 REGIONS ml/min/1.7 3m2 GFR, Est., If >60.00 >60 REGIONS Black ml/min/1.7 3m2 Calcium 8.1 (L) 8.4 - 10.2 REGIONS mg/dl Anion Gap 5 3 - 11 REGIONS (calc.) mmol/L Comment: PLEASE NOTE CHANGE IN REFERENCE RANGE Specimen Anatomical Collection Method Collection Time Receive d Time (Source) Location / / Volume Laterality 04/15/2010 7:00 AM 0 7:06 CDT AM CDT Cecile Browne PA-C LAB_1 Performing Organization Address [facility]/ZIP [facility] [place] Phon e Number [address] [address] [place], [place] [phone] URINE CULTURE (04/14/2010 3:05 PM CDT) [facility] gist Method Time Signature Specimen Urine REGIONS Description Special Unspecified REGIONS Requests Culture No Growth After REGIONS 1 Day Report Status Final REGIONS 04/15/2010 Specimen Anatomical Collection Method Collection Time Receive d Time (Source) Location / / Volume Laterality 04/14/2010 3:05 PM 0 3:58 CDT PM CDT Maurice Baron MD LAB_1 Performing Organization Address [facility] Phon e Number [address] [address] [place], [place] [phone] US VENOUS DUPLEX LOWER EXTREMITY BILATERAL (04/14/2010 11:23 AM CDT) Anatomical Region Laterality Modality Vascular, Leg Ultrasound Specimen (Source) Anatomical Collection Method Collection Time Re ceived Time Location / / Volume Laterality 04/14/2010 11:23 AM CDT Narrative 04/14/2010 11:29 AM CDT DOPPLER ULTRASOUND BILATERAL LOWER EXTREMITY VEINS 04/14/2010: INDICATION: Swelling. DVT. COMPARISON: 04/12/2010. TECHNIQUE: Real-time duplex spectral and color Doppler ultrasound examination of bilateral lower extremity veins performed by creative services writer. Study technically difficult due to consi derable soft tissue swelling. FINDINGS: RIGHT: Nonocclusive thrombus in the dist al common femoral, proximal femoral and profunda femoris veins, better docu mented today. Remainder of the visualized femoral, popliteal and medical research tech ior tibial veins are negative for DVT. Since previous study, nonocclusive thrombus is also documented in the profunda femoris vein. LEFT: Nonocclusive thrombus in the dista l common femoral and proximal femoral vein, not seen previously. Remai nder of the visualized femoral, profunda femoris, popliteal and posterio r tibial veins are negative for DVT. CONCLUSION: 1. On the right, nonocclusive thrombus i n the distal common femoral and proximal femoral veins as seen previousl y. Additional nonocclusive thrombus identified in the proximal profunda fem robert vein today. 2. On the left, nonocclusive thrombus id entified in the distal common femoral and proximal femoral veins, not seen previously. 3. Study technically difficult due to co nsiderable soft tissue swelling. Procedure Note Birgit Melton T - 04/15/2010Formatting of t his note might be different from the original. DOPPLER ULTRASOUND BILATERAL LOWER EXTRE MITY VEINS 04/14/2010: INDICATION: Swelling. DVT. COMPARISON: 04/12/2010. TECHNIQUE: Real-time duplex spectral and color Doppler ultrasound examination of bilateral lower extremity veins performed by creative services writer. Study technically difficult due to consi derable soft tissue swelling. FINDINGS: RIGHT: Nonocclusive thrombus in the dist al common femoral, proximal femoral and profunda femoris veins, better docu mented today. Remainder of the visualized femoral, popliteal and medical research tech ior tibial veins are negative for DVT. Since previous study, nonocclusive thrombus is also documented in the profunda femoris vein. LEFT: Nonocclusive thrombus in the dista l common femoral and proximal femoral vein, not seen previously. Remai nder of the visualized femoral, profunda femoris, popliteal and posterio r tibial veins are negative for DVT. CONCLUSION: 1. On the right, nonocclusive thrombus i n the distal common femoral and proximal femoral veins as seen previousl y. Additional nonocclusive thrombus identified in the proximal profunda fem robert vein today. 2. On the left, nonocclusive thrombus id entified in the distal common femoral and proximal femoral veins, not seen previously. 3. Study technically difficult due to co nsiderable soft tissue swelling. Lucy SAMSON US (ABNORMAL) BASIC METABOLIC PANEL (04/14/2010 10:00 AM CDT) athologist Signature BUN 10 7 - 20 REGIONS mg/dl Sodium 136 135 - 145 REGIONS mmol/L Potassium 3.2 (L) 3.5 - 5.1 REGIONS mmol/L Chloride 101 98 - 107 REG[facility] mmol/L CO2 31 (H) 22 - 30 REGIONS mmol/L Glucose 105 70 - 180 REGIONS mg/dl Creatinine 0.85 0.66 - REGIONS 1.25 mg/dl GFR, Estimated >60.00 >60 REGIONS ml/min/1.7 3m2 GFR, Est., If >60.00 >60 REGIONS Black ml/min/1.7 3m2 Calcium 7.7 (L) 8.4 - 10.2 REGIONS mg/dl Anion Gap 5 3 - 11 REGIONS (calc.) mmol/L Comment: PLEASE NOTE CHANGE IN REFERENCE RANGE Specimen Anatomical Collection Method Collection Time Receive d Time (Source) Location / / Volume Laterality 04/14/2010 10:00 04/14/2010 AM CDT 10:06 AM CDT Maurice Baron MD LAB_1 Performing Organization Address [facility] Phon e Number [address] [address] [place], [place] [phone] ADD ON LAB ORDERS(SPECIMEN IN LAB) (04/14/2010 8:51 AM CDT) [facility] gist Method Time Signature Add On Test Additional REGIONS Testing Ordered by Specimen Anatomical Collection Method Collection Time Receive d Time (Source) Location / / Volume Laterality 04/14/2010 8:51 AM 0 8:56 CDT AM CDT Cecile Browne PA-C LAB_1 Performing Organization Address [facility] [facility] Phon e Number [address] [address] [place], [place] [phone] (ABNORMAL) INR/PROTIME (04/14/2010 6:00 AM CDT) athologist Signature Protime 14.7 (H) 12.0 - 14.5 [facility] sec INR 1.1 [facility] Specimen Anatomical Collection Method Collection Time Receive d Time (Source) Location / / Volume Laterality 04/14/2010 6:00 AM 0 6:36 CDT AM CDT Cecile Browne PA-C LAB_1 Performing Organization Address [facility]/ZIP Code Phon e Number [address] [address] [place], [place] [phone] ECG 12-LEAD ROUTINE (04/13/2010 7:41 PM CDT) P athologist Signature Ventricular Rate 114 BPM MUSE Atrial Rate 114 BPM MUSE P-R Interval 176 ms MUSE QRS Duration 92 ms MUSE QT 326 ms MUSE QTc 449 ms MUSE P Vardaman 60 degrees MUSE R Vardaman -42 degrees MUSE T Vardaman 26 degrees MUSE URL Link MUSE Specimen (Source) Anatomical Collection Method Collection Time Re ceived Time Location / / Volume Laterality 04/13/2010 7:41 PM CDT Narrative MUSE - 04/16/2010 9:08 AM CDT Poor data quality, interpretation may be adversely affected Sinus tachycardia Left axis deviation Abnormal ECG When compared with ECG of 11-APR-2010 21 :00, No significant change was found Procedure Note Umesh Kilpatrick - 04/16/2010 Poor data quality, interpretation ma y be adversely affected Sinus tachycardia Left axis deviation Abnormal ECG When compared with ECG of 11-APR-2010 21 :00, No significant change was found Cecile Browne PA-C EKG Performing Organization Address [facility] Phon e Number MUSE RHP MUSE CT ANGIOGRAPHY PULMONARY EMBOLISM STUDY (04/13/2010 7:01 PM CDT) Anatomical Region Laterality Modality Chest, Lung, Vascular Computed Tomograph y Specimen (Source) Anatomical Collection Method Collection Time Re ceived Time Location / / Volume Laterality 04/13/2010 7:01 PM CDT Narrative 04/13/2010 7:13 PM CDT CTA CHEST INDICATION: ??Shortness of breath, chest pain. TECHNIQUE: ??After nonenhanced yeast cake cutter teresa ges were obtained, helical acquisition through [...] 4. Postop change thoracic spine Procedure Note Jose JMikal dash N - 04/13/2010Formattin g of this note might be different from the original. CTA CHEST INDICATION: Shortness of breath, chest p ain. TECHNIQUE: After nonenhanced yeast cake cutter image s were obtained, helical acquisition through [...] thoracic spine Cecile Browne PA-C RAD CT URINE CULTURE (04/13/2010 5:25 PM CDT) [facility] gist Method Time Signature Specimen Urine [facility] Description Special Unspecified [facility] Requests Culture <10,000 col/ml [facility] Mixed Zoila Report Status Final [facility] 04/15/2010 Specimen Anatomical Collection Method Collection Time Receive d Time (Source) Location / / Volume Laterality 04/13/2010 5:25 PM 0 2:25 CDT PM CDT Maurice Baron MD LAB_1 Performing Organization Address City/State/ZIP Code Phon e Number [facility] [address] [place] [address] [place], [place] [phone] ADD ON LAB ORDERS(SPECIMEN IN LAB) (04/13/2010 5:25 PM CDT) [facility] Method Time Signature Add On Test Additional [facility] Testing Ordered by Specimen Anatomical Collection Method Collection Time Receive d Time (Source) Location / / Volume Laterality 04/13/2010 5:25 PM 201 0 5:33 CDT PM CDT Cecile Browne PA-C LAB_1 Performing Organization Address [facility] Phon e Number [address] [address] [place], [place] [phone] (ABNORMAL) UA WITH MICROSCOPIC (04/13/2010 5:25 PM CDT) [facility] Method Time Signature Urine Color Light Yellow [facility] Urine Clarity Hazy [facility] Specific 1.011 1.005 - [facility] Goode,Ur 1.03 pH, Urine 5.5 4.5 - 8.0 [facility] Protein, Urine Negative NEG mg/dl [facility] Qual Glucose, Urine Negative NEG mg/dl [facility] Qual Ketones, Urine Negative NEG mg/dl [facility] Urobil, Urine <2.0 <2.0 [facility] Qual mg/dl Bilirubin, Negative NEG [facility] Urine Blood, Urine Trace (A) NEG [facility] Nitrite, Urine Negative NEG [facility] Leukocyte Large (A) NEG [facility] Est., Ur RBC'S 4 (H) 0 - 3 [facility] /hpf WBC'S 257 (H) 0 - 5 [facility] /hpf Bact Many [facility] Epith, Occ /hpf [facility] Squamous Mucous, Urine Present [facility] Specimen Anatomical Collection Method Collection Time Receive d Time (Source) Location / / Volume Laterality Urine specimen 04/13/2010 5:25 PM 04/13/2 010 5:33 (specimen) CDT PM CDT Cecile Browne PA-C LAB_1 Performing Organization Address [facility] Phon e Number [address] [address] [place], [place] [phone] FREE T4 (04/13/2010 3:55 PM CDT) P athologist Signature T4, Free 1.3 0.8 - 2.2 [facility] ng/dl Specimen Anatomical Collection Method Collection Time Receive d Time (Source) Location / / Volume Laterality 04/13/2010 3:55 PM 0 4:13 CDT PM CDT Cecile Browne PA-C LAB_1 Performing Organization Address [facility]/ZIP [facility] [place] Phon [place] Number [address] [address] [place], [place] [phone] (ABNORMAL) TSH, SENSITIVE (WITH REFLEX) (04/13/2010 3:55 PM CDT) Analysis Performed At Patho logist Time Signature TSH, with 6.723 (H) 0.465 - [facility] Reflex 4.68 uIU/ml Specimen Anatomical Collection Method Collection Time Receive d Time (Source) Location / / Volume Laterality 04/13/2010 3:55 PM 0 4:13 CDT PM CDT Cecile Browne PA-C LAB_1 Performing Organization Address City/[facility]/ZIP Code Phon e Number [address] [address] [place], [place] [phone] ADD ON LAB ORDERS(SPECIMEN IN LAB) (04/13/2010 3:55 PM CDT) Patholo gist Method Time Signature Add On Test Additional [facility] Testing Ordered by Specimen Anatomical Collection Method Collection Time Receive d Time (Source) Location / / Volume Laterality 04/13/2010 3:55 PM 0 4:13 CDT PM CDT Cecile Browne PA-C LAB_1 Performing Organization Address [facility]/ZIP [facility] [place] Phon e Number [address] [address] [place], [place] [phone] (ABNORMAL) HEMOGLOBIN, BLOOD (04/13/2010 3:55 PM CDT) P athologist Signature Hemoglobin 9.3 (L) 13.5 - 17.5 [facility] g/dl Specimen Anatomical Collection Method Collection Time Receive d Time (Source) Location / / Volume Laterality 04/13/2010 3:55 PM 0 4:13 CDT PM CDT Cecile Browne PA-C LAB_1 Performing Organization Address City/[facility] Phon e Number [address] [address] [place], [place] [phone] CORTISOL (04/13/2010 3:55 PM CDT) P athologist Signature Cortisol 15 mcg/dl [facility] Specimen Anatomical Collection Method Collection Time Receive d Time (Source) Location / / Volume Laterality 04/13/2010 3:55 PM 0 4:13 CDT PM CDT Cecile Browne PA-C LAB_1 Performing Organization Address [facility] Phon e Number [address] [address] [place], [place] [phone] XR PORTABLE CHEST 1 VIEW (04/13/2010 8:44 AM CDT) Anatomical Region Laterality Modality Chest, Lung Computed Radiography Specimen (Source) Anatomical Collection Method Collection Time Re ceived Time Location / / Volume Laterality 04/13/2010 8:44 AM CDT Narrative 04/13/2010 9:15 AM CDT PORTABLE CHEST X-RAY 04/13/2010 COMPARISON: 04/11/2010. INDICATION: Placement. FINDINGS: Interval removal of endotrache al tube. Right IJ venous catheter unchanged in position with tip in SVC. S mall 3 mm densities project over the upper and mid chest without change w hich could represent foreign bodies. Heart size and pulmonary vascula rity normal. Mild basilar atelectasis. No focal consolidation. Tin y bilateral pleural effusions. Procedure Note Bianka Brooks - 04/13/2010Formatting o f this note might be different from the original. PORTABLE CHEST X-RAY 04/13/2010 COMPARISON: 04/11/2010. INDICATION: Placement. FINDINGS: Interval removal of endotrache al tube. Right IJ venous catheter unchanged in position with tip in SVC. S mall 3 mm densities project over the upper and mid chest without change w hich could represent foreign bodies. Heart size and pulmonary vascula rity normal. Mild basilar atelectasis. No focal consolidation. Tin y bilateral pleural effusions. Cristine Balbuena PA-C RAD PORTABLE (ABNORMAL) BASIC METABOLIC PANEL (04/13/2010 5:45 AM CDT) athologist Signature BUN 18 7 - 20 [facility] mg/dl Sodium 137 135 - 145 [facility] mmol/L Potassium 3.7 3.5 - 5.1 [facility] mmol/L Chloride 104 98 - 107 [facility] mmol/L CO2 28 22 - 30 [facility] mmol/L Glucose 101 70 - 180 [facility] mg/dl Creatinine 0.80 0.66 - [facility] 1.25 mg/dl GFR, Estimated >60.00 >60 [facility] ml/min/1.7 3m2 GFR, Est., If >60.00 >60 [facility] Black ml/min/1.7 3m2 Calcium 7.9 (L) 8.4 - 10.2 [facility] mg/dl Anion Gap 5 3 - 11 [facility] (calc.) mmol/L Comment: PLEASE NOTE CHANGE IN REFERENCE RANGE Specimen Anatomical Collection Method Collection Time Receive d Time (Source) Location / / Volume Laterality 04/13/2010 5:45 AM 0 5:57 CDT AM CDT Maurice Baron MD LAB_1 Performing Organization Address City/[facility] Phon e Number [address] [address] [place], [place] [phone] PHOSPHORUS (04/13/2010 5:45 AM CDT) athologist Signature Phosphorus 3.2 2.5 - 4.5 [facility] mg/dl Specimen Anatomical Collection Method Collection Time Receive d Time (Source) Location / / Volume Laterality 04/13/2010 5:45 AM 0 5:57 CDT AM CDT Maurice Baron MD LAB_1 Performing Organization Address [facility] Phon e Number [address] [address] [place], [place] [phone] MAGNESIUM (04/13/2010 5:45 AM CDT) athologist Signature Magnesium 1.8 1.6 - 2.3 [facility] mg/dl Specimen Anatomical Collection Method Collection Time Receive d Time (Source) Location / / Volume Laterality 04/13/2010 5:45 AM 0 5:57 CDT AM CDT Maurice Baron MD LAB_1 Performing Organization Address City/[facility] Phon e Number [address] [address] [place], [place] [phone] (ABNORMAL) HEMOGRAM/PLTS (04/13/2010 5:45 AM CDT) P athologist Signature WBC 8.2 4.0 - 11.0 [facility] k/ul RBC 3.03 (L) 4.5 - 5.9 [facility] M/ul Hemoglobin 9.3 (L) 13.5 - 17.5 [facility] g/dl HCT 27.2 (L) 41.0 - 53.0 [facility] % MCV 89.6 80 - 100 fl [facility] MCH 30.7 26 - 34 pg [facility] MCHC 34.3 32 - 36 [facility] g/dl RDW 14.8 (H) 11.5 - 14.5 [facility] % Platelets 141 (L) 150 - 450 [facility] k/ul MPV 8.3 6.5 - 10.0 [facility] fl Specimen Anatomical Collection Method Collection Time Receive d Time (Source) Location / / Volume Laterality 04/13/2010 5:45 AM 0 5:57 CDT AM CDT Maurice Baron MD LAB_1 Performing Organization Address [facility]/ZIP [facility] [place] Phon e Number [address] [address] [place], [place] [phone] (ABNORMAL) HEMOGLOBIN, BLOOD (04/13/2010 2:30 AM CDT) P athologist Signature Hemoglobin 9.6 (L) 13.5 - 17.5 [facility] g/dl Comment: Result Checked Specimen Anatomical Collection Method Collection Time Receive d Time (Source) Location / / Volume Laterality 04/13/2010 2:30 AM 0 2:36 CDT AM CDT Maurice Baron MD LAB_1 Performing Organization Address City/[facility] Phon e Number [address] [address] [place], [place] [phone] GLUCOSE, WHOLE BLOOD POC (04/12/2010 3:59 PM CDT) P athologist Signature Glucose, Whole 130 70 - 180 [facility] Blood mg/dl Comment: Point of Care Testing RN Notified Specimen Anatomical Collection Method Collection Time Receive d Time (Source) Location / / Volume Laterality 04/12/2010 3:59 PM 0 CDT 11:36 PM CDT Maurice Baron MD LAB_1 Performing Organization Address City/[facility]/ZIP [facility] Phon e Number [address] [address] [place], [place] [phone] GLUCOSE, WHOLE BLOOD POC (04/12/2010 12:26 PM CDT) P athologist Signature Glucose, Whole 145 70 - 180 [facility] Blood mg/dl Comment: Point of Care Testing RN Notified Specimen Anatomical Collection Method Collection Time Receive d Time (Source) Location / / Volume Laterality 04/12/2010 12:26 04/12/2010 PM CDT 11:36 PM CDT Maurice Baron MD LAB_1 Performing Organization Address City/[facility] Phon e Number [address] [address] [place], [place] [phone] US VENOUS DUPLEX LOWER EXTREMITY BILATERAL (04/12/2010 12:07 PM CDT) Anatomical Region Laterality Modality Vascular, Leg Ultrasound Specimen (Source) Anatomical Collection Method Collection Time Re ceived Time Location / / Volume Laterality 04/12/2010 12:07 PM CDT Narrative 04/12/2010 12:21 PM CDT BILATERAL LOWER EXTREMITY VENOUS DOPPLER US Apr 12, 2010 12:07:00 PM INDICATION: History of DVT. TECHNIQUE: Doppler and compression US ex amination deep veins of both lower extremities. COMPARISON: None available. FINDINGS: ??There is nonocclusive thromb us within the right common femoral and proximal femoral vein. The right pop liteal and left common femoral, femoral and popliteal veins compress nor alyssa and are negative for DVT. ?? Normal respiratory variation and normal augmentation of flow with calf compression. ??Visualized posterior tibi al veins patent. No evidence of Brothers's cyst. CONCLUSION: ?? 1. Nonocclusive thrombus in right common femoral and proximal femoral veins. 2. No evidence of left lower extremity D VT. Procedure Note Bianka Brooks - 04/12/2010Formatting o f this note might be different from the original. BILATERAL LOWER EXTREMITY VENOUS DOPPLER US Apr 12, 2010 12:07:00 PM INDICATION: History of DVT. TECHNIQUE: Doppler and compression US ex amination deep veins of both lower extremities. COMPARISON: None available. FINDINGS: There is nonocclusive thrombus within the right common femoral and proximal femoral vein. The right pop liteal and left common femoral, femoral and popliteal veins compress nor alyssa and are negative for DVT. Normal respiratory variation and normal augmentation of flow with calf compression. Visualized posterior tibial veins patent. No evidence of Brothers's cyst. CONCLUSION: 1. Nonocclusive thrombus in right common femoral and proximal femoral veins. 2. No evidence of left lower extremity D VT. Cristine Balbuena PA-C RAD US Troponin I q6h X3 (04/12/2010 10:59 AM CDT) P athologist Signature Troponin I <0.012 0.000 - [facility] 0.03 ng/ml Comment: PLEASE NOTE CHANGE IN REFERENCE RANGE Specimen Anatomical Collection Method Collection Time Receive d Time (Source) Location / / Volume Laterality 04/12/2010 10:59 04/12/2010 AM CDT 11:05 AM CDT Maurice Baron MD LAB_1 Performing Organization Address City/State/ZIP Code Phon e Number [address] [address] [place], [place] [phone] MR THORACIC SPINE WITH/WITHOUT CONTRAST (04/12/2010 10:35 AM CDT) Anatomical Region Laterality Modality Spine, T-Spine, L-Spine, C-Spine, Skeletal Magnetic Resonance Specimen (Source) Anatomical Collection Method Collection Time Re ceived Time Location / / Volume Laterality 04/12/2010 10:35 AM CDT Narrative 04/12/2010 11:01 AM CDT MRI THORACIC SPINE [facility] 04/12/2010 INDICATIONS: Status post tumor resection . TECHNIQUE: Thoracic spine without and wi th 20 cc of Magnevist. COMPARISON: 04/05/2010. FINDINGS: All of the sequences are degraded by josé miguel hnical artifact. Laminectomy defects T3 through T6. 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 Allowing for the presence of artifact there appears to be intradural enhancing soft tissue at T3 and upper margin of T4 on images 10 through 13 of series 11. Postoperative changes including trace canal air at the T2-T3 level. Intramedullary edema extends cephalad and caudal from the ope rative site to involve the visualized spinal cord to the conus. The thoracic vertebral body heights are maintained. Alignment is anatomic. I ntravertebral disc unchanged. T1 shortening throughout the thoracic verte bral marrow suggest post radiation change. Absence of previously demonstrat ed posterior paraspinal fluid collection. There is fluid signal at the laminectomy defects and posterior paraspinal soft tissue postoperative ivy nges. CONCLUSION: 1. Technical equipment related artifact degrades the images. 2. 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 There appears to be enhancing intradural tissues at the leve l of the laminectomy defects as discussed above. 4. Edematous changes visualized cervical thoracic spinal cord. 5. Posterior paraspinal soft tissue post operative changes. Procedure Note Marcel Schaefer - 04/12/2010 MRI THORACIC SPINE [facility] 04/12/2010 INDICATIONS: Status post tumor resection . TECHNIQUE: Thoracic spine without and wi th 20 cc of Magnevist. COMPARISON: 04/05/2010. FINDINGS: All of the sequences are degraded by josé miguel hnical artifact. Laminectomy defects T3 through T6. 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 Allowing for the presence of artifact there appears to be intradural enhancing soft tissue at T3 and upper margin of T4 on images 10 through 13 of series 11. Postoperative changes including trace canal air at the T2-T3 level. Intramedullary edema extends cephalad and caudal from the ope rative site to involve the visualized spinal cord to the conus. The thoracic vertebral body heights are maintained. Alignment is anatomic. I ntravertebral disc unchanged. T1 shortening throughout the thoracic verte bral marrow suggest post radiation change. Absence of previously demonstrat ed posterior paraspinal fluid collection. There is fluid signal at the laminectomy defects and posterior paraspinal soft tissue postoperative ivy nges. CONCLUSION: 1. Technical equipment related artifact degrades the images. 2. 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 There appears to be enhancing intradural tissues at the leve l of the laminectomy defects as discussed above. 4. Edematous changes visualized cervical thoracic spinal cord. 5. Posterior paraspinal soft tissue post operative changes. Lucy Colmenares PA-C RAD MRI (ABNORMAL) GLUCOSE, WHOLE BLOOD POC (04/12/2010 7:57 AM CDT) athologist Signature Glucose, Whole 210 (H) 70 - 180 [facility] Blood mg/dl Comment: Point of Care Testing RN Notified Specimen Anatomical Collection Method Collection Time Receive d Time (Source) Location / / Volume Laterality 04/12/2010 7:57 AM 0 3:01 CDT PM CDT Maurice Baron MD LAB_1 Performing Organization Address [facility] Phon e Number [address] [address] [place], [place] [phone] Troponin I q6h X3 (04/12/2010 4:25 AM CDT) athologist Signature Troponin I <0.012 0.000 - [facility] 0.03 ng/ml Comment: PLEASE NOTE CHANGE IN REFERENCE RANGE Specimen Anatomical Collection Method Collection Time Receive d Time (Source) Location / / Volume Laterality 04/12/2010 4:25 AM 0 4:45 CDT AM CDT Maurice Baron MD LAB_1 Performing Organization Address [facility] Phon e Number [address] [address] [place], [place] [phone] PHOSPHORUS (04/12/2010 4:24 AM CDT) athologist Signature Phosphorus 2.9 2.5 - 4.5 [facility] mg/dl Specimen Anatomical Collection Method Collection Time Receive d Time (Source) Location / / Volume Laterality 04/12/2010 4:24 AM 0 4:46 CDT AM CDT Maurice Baron MD LAB_1 Performing Organization Address City/[facility]/ZIP [facility] [place] Phon e Number [address] [address] [place], [place] [phone] MAGNESIUM (04/12/2010 4:24 AM CDT) athologist Signature Magnesium 2.1 1.6 - 2.3 [facility] mg/dl Specimen Anatomical Collection Method Collection Time Receive d Time (Source) Location / / Volume Laterality 04/12/2010 4:24 AM 0 4:46 CDT AM CDT Maurice Baron MD LAB_1 Performing Organization Address City/[facility]/ZIP Code Phon e Number [address] [address] [place], [place] [phone] ADD ON LAB ORDERS(SPECIMEN IN LAB) (04/12/2010 4:24 AM CDT) [facility] gist Method Time Signature Add On Test Additional [facility] Testing Ordered by Specimen Anatomical Collection Method Collection Time Receive d Time (Source) Location / / Volume Laterality 04/12/2010 4:24 AM 0 4:46 CDT AM CDT Maurice Baron MD LAB_1 Performing Organization Address City/[facility]/ZIP [facility] [place] Phon e Number [address] [address] [place], [place] [phone] (ABNORMAL) Basic Metabolic Panel (04/12/2010 4:24 AM CDT) P athologist Signature BUN 15 7 - 20 [facility] mg/dl Sodium 137 135 - 145 [facility] mmol/L Potassium 4.1 3.5 - 5.1 [facility] mmol/L Chloride 104 98 - 107 [facility] mmol/L CO2 24 22 - 30 [facility] mmol/L Glucose 187 (H) 70 - 180 [facility] mg/dl Creatinine 0.76 0.66 - [facility] 1.25 mg/dl GFR, Estimated >60.00 >60 [facility] ml/min/1.7 3m2 GFR, Est., If >60.00 >60 [facility] Black ml/min/1.7 3m2 Calcium 8.3 (L) 8.4 - 10.2 [facility] mg/dl Anion Gap 9 3 - 11 [facility] (calc.) mmol/L Comment: PLEASE NOTE CHANGE IN REFERENCE RANGE Specimen Anatomical Collection Method Collection Time Receive d Time (Source) Location / / Volume Laterality 04/12/2010 4:24 AM 0 4:46 CDT AM CDT Lucy Colmenares PA-C LAB_1 Performing Organization Address [facility] Phon e Number [address] [address] [place], [place] [phone] (ABNORMAL) Hemogram with Plts (04/12/2010 4:24 AM CDT) P athologist Signature WBC 8.1 4.0 - 11.0 [facility] k/ul RBC 3.43 (L) 4.5 - 5.9 [facility] M/ul Hemoglobin 10.7 (L) 13.5 - 17.5 [facility] g/dl HCT 29.6 (L) 41.0 - 53.0 [facility] % MCV 86.5 80 - 100 fl [facility] MCH 31.2 26 - 34 pg [facility] MCHC 36.1 (H) 32 - 36 [facility] g/dl RDW 13.6 11.5 - 14.5 [facility] % Platelets 176 150 - 450 [facility] k/ul MPV 8.3 6.5 - 10.0 [facility] fl Specimen Anatomical Collection Method Collection Time Receive d Time (Source) Location / / Volume Laterality 04/12/2010 4:24 AM 0 4:46 CDT AM CDT Lucy Colmenares PA-C LAB_1 Performing Organization Address [facility] Phon e Number [address] [address] [place], [place] [phone] (ABNORMAL) GLUCOSE, WHOLE BLOOD POC (04/12/2010 4:02 AM CDT) P athologist Signature Glucose, Whole 229 (H) 70 - 180 [facility] Blood mg/dl Comment: Point of Care Testing RN Notified IV Insulin Specimen Anatomical Collection Method Collection Time Receive d Time (Source) Location / / Volume Laterality 04/12/2010 4:02 AM 201 0 4:38 CDT AM CDT Maurice Baron MD LAB_1 Performing Organization Address City/[facility] Phon e Number [address] [address] [place], [place] [phone] (ABNORMAL) GLUCOSE, WHOLE BLOOD POC (04/12/2010 12:02 AM CDT) P athologist Signature Glucose, Whole 236 (H) 70 - 180 [facility] Blood mg/dl Comment: Point of Care Testing RN Notified IV Insulin Specimen Anatomical Collection Method Collection Time Receive d Time (Source) Location / / Volume Laterality 04/12/2010 12:02 04/12/2010 AM CDT 12:45 AM CDT Maurice Baron MD LAB_1 Performing Organization Address [facility]/ZIP [facility] [place] Phon e Number [address] [address] [place], [place] [phone] Calcium, Ionized (04/11/2010 10:31 PM CDT) P athologist Signature Calcium, 1.17 mmol/L [facility] Ionized WB Comment: Usual range 1.0-1.3 mmol/L at p H 7.4 pH, Whole Blood 7.401 7.350 - 7.45 [facility] Specimen Anatomical Collection Method Collection Time Receive d Time (Source) Location / / Volume Laterality Whole Blood 04/11/2010 10:31 04/11/2010 PM CDT 10:32 PM CDT Maurice Baron MD LAB_1 Performing Organization Address City/[facility]/ZIP [facility] [place] Phon e Number [address] [address] [place], [place] [phone] Troponin I q6h X3 (04/11/2010 10:30 PM CDT) P athologist Signature Troponin I <0.012 0.000 - [facility] 0.03 ng/ml Comment: PLEASE NOTE CHANGE IN REFERENCE RANGE Specimen Anatomical Collection Method Collection Time Receive d Time (Source) Location / / Volume Laterality 04/11/2010 10:30 04/11/2010 PM CDT 10:31 PM CDT Maurice Baron MD LAB_1 Performing Organization Address [facility] Phon e Number [address] [address] [place], [place] [phone] Urine Culture (04/11/2010 10:30 PM CDT) Patholo gist Method Time Signature Specimen Urine REGIONS Description Cath/Bladder Special Unspecified REGIONS Requests Culture No Growth After REGIONS 2 Days Report Status Final REGIONS 04/13/2010 Specimen Anatomical Collection Method Collection Time Receive d Time (Source) Location / / Volume Laterality Urine specimen 04/11/2010 10:30 0 (specimen) PM CDT 11:18 PM CDT Maurice Baron MD LAB_1 Performing Organization Address [facility] Phon e Number [address] [address] [place], [place] [phone] INR/Protime (PT/INR) (04/11/2010 10:30 PM CDT) P athologist Signature Protime 13.5 12.0 - 14.5 REGIONS sec INR 1.0 REGIONS Specimen Anatomical Collection Method Collection Time Receive d Time (Source) Location / / Volume Laterality 04/11/2010 10:30 04/11/2010 PM CDT 10:31 PM CDT Maurice Baron MD LAB_1 Performing Organization Address [facility] Phon e Number [address] [address] [place], [place] [phone] Magnesium (04/11/2010 10:30 PM CDT) P athologist Signature Magnesium 1.6 1.6 - 2.3 REGIONS mg/dl Specimen Anatomical Collection Method Collection Time Receive d Time (Source) Location / / Volume Laterality 04/11/2010 10:30 04/11/2010 PM CDT 10:31 PM CDT Maurice Baron MD LAB_1 Performing Organization Address City/[facility] Phon e Number [address] [address] [place], [place] [phone] Phosphorus (04/11/2010 10:30 PM CDT) athologist Signature Phosphorus 4.2 2.5 - 4.5 REGIONS mg/dl Specimen Anatomical Collection Method Collection Time Receive d Time (Source) Location / / Volume Laterality 04/11/2010 10:30 04/11/2010 PM CDT 10:31 PM CDT Maurice Baron MD LAB_1 Performing Organization Address [facility] Phon e Number [address] [address] [place], [place] [phone] (ABNORMAL) Basic Metabolic Panel (K, Na, CO2, Cl, Gluc, BUN, Creat, Ca) (Chem 8) (04/11/2010 10:30 PM CDT) athologist Signature BUN 13 7 - 20 REGIONS mg/dl Sodium 135 135 - 145 REGIONS mmol/L Potassium 4.0 3.5 - 5.1 REGIONS mmol/L Chloride 102 98 - 107 REG[facility] mmol/L CO2 24 22 - 30 REGIONS mmol/L Glucose 182 (H) 70 - 180 REGIONS mg/dl Creatinine 0.81 0.66 - REGIONS 1.25 mg/dl GFR, Estimated >60.00 >60 REGIONS ml/min/1.7 3m2 GFR, Est., If >60.00 >60 REGIONS Black ml/min/1.7 3m2 Calcium 8.3 (L) 8.4 - 10.2 REGIONS mg/dl Anion Gap 8 3 - 11 REGIONS (calc.) mmol/L Comment: PLEASE NOTE CHANGE IN REFERENCE RANGE Specimen Anatomical Collection Method Collection Time Receive d Time (Source) Location / / Volume Laterality 04/11/2010 10:30 04/11/2010 PM CDT 10:31 PM CDT Maurice Baron MD LAB_1 Performing Organization Address [facility] Phon e Number [address] [address] [place], [place] [phone] (ABNORMAL) Hemogram with Platelets (04/11/2010 10:30 PM CDT) P athologist Signature WBC 6.5 4.0 - 11.0 REGIONS k/ul RBC 3.45 (L) 4.5 - 5.9 REGIONS M/ul Hemoglobin 10.4 (L) 13.5 - 17.5 REGIONS g/dl HCT 30.5 (L) 41.0 - 53.0 REGIONS % MCV 88.2 80 - 100 fl REGIONS MCH 30.2 26 - 34 pg REGIONS MCHC 34.3 32 - 36 REGIONS g/dl RDW 14.6 (H) 11.5 - 14.5 REGIONS % Platelets 148 (L) 150 - 450 REGIONS k/ul MPV 8.2 6.5 - 10.0 REGIONS fl Specimen Anatomical Collection Method Collection Time Receive d Time (Source) Location / / Volume Laterality 04/11/2010 10:30 04/11/2010 PM CDT 10:31 PM CDT Maurice Baron MD LAB_1 Performing Organization Address City/State/ZIP Code Phon e Number [address] [address] [place], [place] [phone] (ABNORMAL) Blood Gas, Arterial (ABG) (04/11/2010 10:30 PM CDT) Patholo gist Method Time Signature pH, Whole 7.401 7.350 - REGIONS Blood 7.45 pCO2 39.7 35 - 45 REGIONS mmHg pO2 103 (H) 80 - 100 REGIONS mmHg HCO3, 24.1 22 - 26 REGIONS Calculated mmol/L Base Deficit 0.1 mmol/L REGIONS O2 Content 14.6 ml/dl REGIONS O2 Saturation, 98.2 96 - 100 % REGIONS Calc Last Available Information Not g/dl REGIONS HGB Given Last Patient 37.0 degrees C REGIONS Temp Inspired O2 40.0 REGIONS Conc Percent (%) Oxygen Therapy Ventilator REGIONS Mode of Information Not REGIONS Therapy Given Total Resp 12.0 b/min REGIONS Rate Set Resp Rate 12.0 b/min REGIONS Tidal Volume 700.0 mL REGIONS PEEP/CPAP 5.0 cm H2O REGIONS Total Minute 8.6 L/min REGIONS Ventila Specimen Anatomical Collection Method Collection Time Receive d Time (Source) Location / / Volume Laterality Arterial blood 04/11/2010 10:30 0 specimen PM CDT 10:43 PM CDT (specimen) Maurice Baron MD LAB_1 Performing Organization Address City/State/ZIP Code Phon e Number [address] [address] [place], [place] [phone] XR PORTABLE CHEST 1 VIEW (04/11/2010 9:03 PM CDT) Anatomical Region Laterality Modality Chest, Lung Computed Radiography Specimen (Source) Anatomical Collection Method Collection Time Re ceived Time Location / / Volume Laterality 04/11/2010 9:03 PM CDT Narrative 04/11/2010 9:24 PM CDT XR PORT CHEST 1 VW Apr 11, 2010 09:03:00 PM INDICATION: ET tube placement COMPARISON: None FINDINGS: ECG leads overlie the chest. E ndotracheal tube tip overlies the tracheal air column midway between the t horacic inlet and the jeffry. Right internal jugular central line overlies the superior vena cava above its junction with right atrium. Linear densi ty in the right lung base with volume loss likely atelectasis. Patchy m edial pneumonitis not excluded. Followup recommended. Procedure Note Shantanu Antonio Jr. - 04/11/2010Formatt ing of this note might be different from the original. XR PORT CHEST 1 VW Apr 11, 2010 09:03:00 PM INDICATION: ET tube placement COMPARISON: None FINDINGS: ECG leads overlie the chest. E ndotracheal tube tip overlies the tracheal air column midway between the t horacic inlet and the jeffry. Right internal jugular central line overlies the superior vena cava above its junction with right atrium. Linear densi ty in the right lung base with volume loss likely atelectasis. Patchy m edial pneumonitis not excluded. Followup recommended. Maurice Baron MD RAD PORTABLE ECG 12-Lead (04/11/2010 9:00 PM CDT) P athologist Signature Ventricular Rate 109 BPM MUSE Atrial Rate 109 BPM MUSE P-R Interval 166 ms MUSE QRS Duration 98 ms MUSE QT 362 ms MUSE QTc 487 ms MUSE P Vardaman 49 degrees MUSE R Vardaman -49 degrees MUSE T [place]aman 15 degrees MUSE URL Link MUSE Specimen (Source) Anatomical Collection Method Collection Time Re ceived Time Location / / Volume Laterality 04/11/2010 9:00 PM CDT Narrative MUSE - 04/13/2010 8:19 AM CDT Sinus tachycardia Left anterior fascicular block Abnormal ECG No previous ECGs available Procedure Note Antoniasalome Sky Jagdish - 04/13/2010 Sinus tachycardia Left anterior fascicular block Abnormal ECG No previous ECGs available Maurice Baron MD EKG Performing Organization Address [facility]/[place] [facility] [place] MUSE RHP MUSE MRSA ADMIT SCREEN (04/11/2010 9:00 PM CDT) Component Value Ref Test Analysis Performed At [facility] Range Method Time Signature Specimen Nose Swab REGIONS Description Special Unspecified REGIONS Requests PCR No Methicillin REGIONS Resistant Staphylococcus aureus Culture No MRSA DNA REGIONS Detected Report Status Final 04/11/2010 REGIONS Specimen Anatomical Collection Method Collection Time Receive d Time (Source) Location / / Volume Laterality Nasal swab taken 04/11/2010 9:00 PM 04/11 9:43 (situation) CDT PM CDT Maurice Baron MD LAB_1 Performing Organization Address [facility] Phon e Number [address] [address] [place], [place] [phone] (ABNORMAL) GLUCOSE, WHOLE BLOOD POC (04/11/2010 8:28 PM CDT) P athologist Signature Glucose, Whole 183 (H) 70 - 180 REGIONS Blood mg/dl Comment: Point of Care Testing RN Notified Specimen Anatomical Collection Method Collection Time Receive d Time (Source) Location / / Volume Laterality 04/11/2010 8:28 PM 0 8:38 CDT PM CDT Maurice Baron MD LAB_1 Performing Organization Address [facility] Phon e Number [address] [address] [place], [place] [phone] ANAEROBIC CULTURE (04/11/2010 4:30 PM CDT) [employer] gist Method Time Signature Specimen Tissue DEEPER REGIONS Description COLLECTION Posterior Neck Special Received in REGIONS Requests Anaport Vial Aerobic Cult [id number] REGIONS Number Culture No Anaerobes REGIONS Isolated Report Status Final REGIONS 04/17/2010 Specimen Anatomical Collection Method Collection Time Receive d Time (Source) Location / / Volume Laterality 04/11/2010 4:30 PM 0 6:18 CDT PM CDT Maurice Baron MD LAB_1 Performing Organization Address [facility]/ZIP [facility] [place] Ph[place] Number [address] [address] [place], [place] [phone] AEROBIC CULTURE (04/11/2010 4:30 PM CDT) Patholo gist Method Time Signature Specimen Tissue DEEPER REGIONS Description COLLECTION Posterior Neck Special Received in REGIONS Requests Anaport Vial Gram Smear No PMN'S Seen REGIONS Gram Smear No Organisms REGIONS Seen Culture No Growth REGIONS After 4 Days Report Status Final REGIONS 04/15/2010 Specimen Anatomical Collection Method Collection Time Receive d Time (Source) Location / / Volume Laterality 04/11/2010 4:30 PM 0 6:14 CDT PM CDT Maurice Baron MD LAB_1 Performing Organization Address City/[facility]/ZIP [facility] [place] Phon e Number [address] [address] [place], [place] [phone] ANAEROBIC CULTURE (04/11/2010 4:00 PM CDT) [facility] Method Time Signature Specimen Tissue REGIONS Description Posterior Neck SUB PUSTUAL COLLECTION Special Received in REGIONS Requests Anaport Vial Aerobic Cult [id number] REGIONS Number Culture No Anaerobes REGIONS Isolated Report Status Final REGIONS 04/17/2010 Specimen Anatomical Collection Method Collection Time Receive d Time (Source) Location / / Volume Laterality 04/11/2010 4:00 PM 0 6:32 CDT PM CDT Maurice Baron MD LAB_1 Performing Organization Address City/[facility]/ZIP Code Phon e Number [address] [address] [place], [place] [phone] AEROBIC CULTURE (04/11/2010 4:00 PM CDT) Patholo Animail Method Time Signature Specimen Tissue SUB REGIONS Description PUSTUAL COLLECTION Posterior Neck Special Received in REGIONS Requests Anaport Vial Gram Smear Rare PMNs Seen REGIONS Gram Smear No Organisms REGIONS Seen Culture No Growth REGIONS After 4 Days Report Status Final REGIONS 04/15/2010 Specimen Anatomical Collection Method Collection Time Receive d Time (Source) Location / / Volume Laterality 04/11/2010 4:00 PM 0 6:29 CDT PM CDT Maurice Baron MD LAB_1 Performing Organization Address City/[facility]/ZIP Code Phon e Number [address] [address] [place], [place] [phone] ANAEROBIC CULTURE (04/11/2010 4:00 PM CDT) Patholo gist Method Time Signature Specimen Tissue SUB REGIONS Description PUSTUAL WALL Posterior Neck Special Received in REGIONS Requests Anaport Vial Aerobic Cult [id number] REGIONS Number Culture No Anaerobes REGIONS Isolated Report Status Final REGIONS 04/17/2010 Specimen Anatomical Collection Method Collection Time Receive d Time (Source) Location / / Volume Laterality 04/11/2010 4:00 PM 0 6:25 CDT PM CDT Maurice Baron MD LAB_1 Performing Organization Address [place]/[facility]/ZIP [facility] [place] Phon [place] Number [address] [address] [place], [place] [phone] AEROBIC CULTURE (04/11/2010 4:00 PM CDT) [facility] Method Time Signature Specimen Tissue SUB REGIONS Description PUSTUAL WALL Posterior Neck Special Received in REGIONS Requests Anaport Vial Gram Smear No PMN'S Seen REGIONS Gram Smear No Organisms REGIONS Seen Culture No Growth REGIONS After 4 Days Report Status Final REGIONS 04/15/2010 Specimen Anatomical Collection Method Collection Time Receive d Time (Source) Location / / Volume Laterality 04/11/2010 4:00 PM 0 6:23 CDT PM CDT Maurice Baron MD LAB_1 Performing Organization Address City/[facility]/ZIP Code Phon e Number [address] [address] [place], [place] [phone] ANAEROBIC CULTURE (04/11/2010 4:00 PM CDT) Patholo gist Method Time Signature Specimen Aspirate REGIONS Description Posterior Neck SUBPUSTUAL COLLECTION Special Received in REGIONS Requests Anaport Vial Aerobic Cult [id number] REGIONS Number Culture No Anaerobes REGIONS Isolated Report Status Final REGIONS 04/17/2010 Specimen Anatomical Collection Method Collection Time Receive d Time (Source) Location / / Volume Laterality 04/11/2010 4:00 PM 0 4:07 CDT PM CDT Maurice Baron MD LAB_1 Performing Organization Address City/[facility] Phon e Number [address] [address] [place], [place] [phone] AEROBIC CULTURE (04/11/2010 4:00 PM CDT) [facility] Animail Method Time Signature Specimen Aspirate REGIONS Description Posterior Neck SUBPUSTUAL COLLECTION Special Received in REGIONS Requests Anaport Vial Gram Smear Rare PMNs Seen REGIONS Gram Smear No Organisms REGIONS Seen Gram Smear Results Called REGIONS to Dr Baron via Speaker Phone [phone] at 16:30 on Gram Smear 04/11 by AG REGIONS Culture No Growth REGIONS After 3 Days Report Status Final REGIONS 04/14/2010 Specimen Anatomical Collection Method Collection Time Receive d Time (Source) Location / / Volume Laterality 04/11/2010 4:00 PM 0 4:07 CDT PM CDT Maurice Baron MD LAB_1 Performing Organization Address [facility] Phon e Number [address] [address] [place], [place] [phone] ABO Rh & Antibody Screen (Type & Screen) (04/11/2010 11:57 AM CDT) [facility] Animail Method Time Signature Crossmatch 04/14/2010 REGIONS Expires ABO/RH(D) A NEGATIVE REGIONS Antibody NEGATIVE REGIONS Screen Specimen Anatomical Collection Method Collection Time Receive d Time (Source) Location / / Volume Laterality 04/11/2010 11:57 04/11/2010 AM CDT 12:06 PM CDT Maurice Baron MD LAB_1 Performing Organization Address City/[facility] Phon e Number [address] [address] [place], [place] [phone] aPTT (Activated Partial Thromboplastin Time) (04/11/2010 11:57 AM CDT) P athologist Signature PTT 27.0 24.0 - 37.0 REGIONS sec Specimen Anatomical Collection Method Collection Time Receive d Time (Source) Location / / Volume Laterality 04/11/2010 11:57 04/11/2010 AM CDT 12:05 PM CDT Maurice Baron MD LAB_1 Performing Organization Address [facility] Phon e Number [address] [address] [place], [place] [phone] INR/Protime (PT/INR) (04/11/2010 11:57 AM CDT) P athologist Signature Protime 12.5 12.0 - 14.5 REGIONS sec INR 0.9 REGIONS Specimen Anatomical Collection Method Collection Time Receive d Time (Source) Location / / Volume Laterality 04/11/2010 11:57 04/11/2010 AM CDT 12:05 PM CDT Maurice Baron MD LAB_1 Performing Organization Address [place]/[facility]/[place]IP [facility] [place] Ph[place] Number [address] [address] [place], [place] [phone] SURGICAL PATH (04/11/2010 7:00 AM CDT) Patholo gist Method Time Signature 9911 (NOTE) REGIONS Surgical Final Report Patient Name: JIE CULLEN Taken: 04/11/2010 Received: 04/11/2010 Reported: 04/20/2010 Physician(s): MAURICE BARON ([id number]) ? 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 ??The histologic findings are similar to the prev ious recurrence. ??On the current biopsy there are focal areas of necrosis, however the findings may be secondary to treatment effect. ? ?There is no definitive evidence of dedifferentitation. ??Dr. Stephanie ye has reviewed this case and concurs with the above interpretation . ??This case was discussed with Dr. Baron on 04/14/10. cab/04/13/2010 Electronically Signed Out By ? Chelsea Estrada MD ([id number]) Procedures/Addenda Clinical History Thoracic tumor Gross Description The specimen is received in formalin and labeled with the pa jonathan' s name and recurrent thoracic ependymoma. ??The specimen con sists of a 4.1 x 2.5 x 0.7 cm aggregate of farrell-brown, friable soft tiss ue fragments. ??The specimen is filtered and entirely submitted in three cassettes. ??cl cll/04/12/2010 Microscopic Description Microscopic examination is performed on three slides. ?? cab/04/13/2010 Chelsea Estrada MD ([id number]) Specimen Anatomical Collection Method Collection Time Receive d Time (Source) Location / / Volume Laterality SPINAL CORD 04/11/2010 7:00 AM 0 9:32 STRUCTURE / CDT PM CDT Unknown Maurice Baron MD LAB_1 Performing Organization Address City/State/ZIP Code Phon e Number [address] [address] [place], [place] [phone] EKG IP (04/11/2010 12:00 AM CDT) Specimen (Source) Anatomical Location Collection Method / Collectio n Time Received Time / Laterality Volume 04/11/2010 Narrative This result has an attachment that is no t available. Transcriptions REGIONS, PROVIDER - 04/11/2010 12:00 AM CDT Provider Regions EKG documented in this encounter Visit Diagnoses Diagnosis Hypotension - Primary Hypotension, unspecified 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, unspecified site Acute respiratory failure (HRC) Acute respiratory failure Tachycardia Tachycardia, unspecified DVT (deep venous thrombosis) (HRC) Acute venous embolism and thrombosis of unspecified deep vessels of lower extremity Acute blood loss anemia Acute posthemorrhagic anemia HTN (hypertension) (HRC) Unspecified essential hypertension Sinus tachycardia Other specified cardiac dysrhythmias Personal history of DVT (deep vein throm bosis) Personal history of venous thrombosis an d embolism Breakdown of skin tissue Other specified hypertrophic and atrophi c condition of skin Paraplegia (HRC) Paraplegia Pressure ulcer (HRC) Pressure ulcer, unspecified site CAREPLAN: BACLOFEN Constipation Unspecified constipation Initial Assessments - Jamie Ralph, NIELS, LD - 04/14/2010 1:42 PM CDT [facility] Nutrition Initial Limited Assessment and Care Plan Reason for Assessing Patient: LOS Assessment: 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 Nutrition Status Classification: Mild Nutritional Risk/Status NUTRITION INTERVENTION 1. Order supplements: CIB at breakfast, Ensure HP at dinner 2. Encourage adequate intake of diet and supplements 3. Discussed high protein supplements with pts family as an option when appetite is down. Pts familysaid he drank these during radiation therapy in past. NUTRITION MONITORING, EVALUTION, AND OUTCOME GOALS Monitor: dietary intake and tolerance, supplement intake and tolerance, pertinent labs and weight changes Outcome Goal(s): 1. Consistently eat 50+ % of meals 2. Consume 2 high protein/high calorie supplements/day 3. Weight maintenance 4. Achieve/maintain labs WNL Follow-up EMR documentation within 6 days Report completed by: Jamie Ralph, NIELS,LD If you have questions, page [phone] Weekend pager: [phone] Nutrition Assessment Data Current Nutrition/Diet Order: Diet: Regular diet Patient/Family Interview: Pt and family said appetite continues to improve. He had two bowls of soupand pineapple for lunch Food and Nutrition-Related History: Diet History: Regular diet Intake/Digestive Problems INSTRUCTIONAL SPECIALIST: no problems noted. Pt had a good appetite INSTRUCTIONAL SPECIALIST and pts weight has beenstable Pertinent Biochemical Data, Medical Diagnosis/Status, Tests, Meds and Procedures Nutrition-Focused Physical Data Height: 5' 10 (177.8 cm) Admission Wt - Scale: 104.327 kg (230 lb) BMI: Estimated Body mass index is 33.00 kg/(m^2) as calculated from the following: Height as of this encounter: 5' 10(1.778 m). Weight as of this encounter: 230 lb(104.327 kg). Last 5 Encounter Wt Readings: Admission (Current) on 04/11/2010 04/11/2010 11:53 AM Weight: 104.327 kg (230 lb) Surgery on 04/11/2010 04/11/2010 11:53 AM Weight: 104.327 kg (230 lb) Admission from 04/05/2010 to 04/06/2010 04/05/2010 3:56 PM Weight: 104.327 kg (230 lb) Surgery on 04/05/2010 04/05/2010 3:56 PM Weight: 104.327 kg (230 lb) Surgery on 04/05/2010 04/05/2010 3:56 PM Weight: 104.327 kg (230 lb) Comparative Anthropometric Standards: adjusted body weight 83 kg, ideal body weight 75.4 kg and 138 % ideal body weight Nutrition - Pertinent Medical History/Diagnoses: POD #3 s/p resection of spinal cord tumor, 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 Pertinent Labs: none --- End of Report --- Initial Assessments - Trudi Locke - 04/13/2010 12:01 PM CDT [facility] Physical Therapy Evaluation Patient Seen: bedside Diagnosis: Encounter Diagnoses Code Name Primary? 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 518.81 Acute Respiratory Failure Subjective Residence: House Assist Available: Spouse Prior level of function: Dependent, assist required for transfers. Equipment: Wheelchair powered and manual with Angus cushion. Sliding board for transfers. Objective: Current Level of Function Bed Mobility: Not tested- at time of evaluation activity orders specified bedrest. MD arrived at the end of PT session and reported pt is cleared for out of bed activity. Transfers: To be assessed Wheelchair Mobility: To be assessed Ambulation: Not appropriate Stairs: Not appropriate Toileting Needs: no needs Action Taken: N/A Balance and Coordination: Not tested ROM (lower extremity): Within functional limits. Manual Muscle Test/Strength (lower extremity): Impaired for functional mobility. No active LE movement present. Endurance: Endurance is Not tested. Neurological Sensation: Impaired- absent distal to breast line. Tone: pt has baclofen pump. Perception/Cognition/Orientation: patient alert and patient oriented to person/self, place and date/time Action Taken: no action needed Pain Patient complains of 8/10 pain in B shoulders. Action Taken: patient willing to continue with therapy Tolerance: Patient tolerated treatment without adverse effects Education Provide education regarding role of physical therapy during hospitalization Provide support and encouragement and answered questions related to rehab course Adaptive Equipment Recommendations Pt will benefit from use of: wheelchair. Patient has own equipment. Patient Position: in bed Assessment and Recommendations 64 yr old male s/p radical resection of thoracic spinal cord tumor. Pt was seen for PT eval and presents with B LE paraplegia and numbness (unchanged from baseline) and c/o B shoulder pain (8/10). Pt now with advanced activity orders. Will cont to follow. Anticipate if pain controlled pt may be able to return home once medically stable as pt was dependent in transfers and non-ambulatory prior to thissurgery. Plan of care Continue Physical Therapy daily for functional mobility and safety, range of motion, strengthening and endurance, balance and coordination activities and patient/family education. Goals Patient will be able to perform bed mobility with moderate assist. Patient to transfer bed to and from chair with moderate assist via sliding board. Patient to propel wheelchair 50 feet with minimum assist. Patient/Family Goals: None expressed Amount of time spent in patient contact: AM: 30 minutes Trudi Locke, PT Phone number is [phone] Pager: [phone] --- End of Report --- Initial Assessments - Abby Ellsworth - 04/13/2010 11:42 AM CDT [facility] Occupational Therapy ADL Evaluation Diagnosis: Encounter Diagnoses Code Name Primary? 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 518.81 Acute Respiratory Failure No past medical history on file. 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 Elbow, wrist, and finger PROM was wfl. UE Strength: Unable to test UE ROM due to pain UE Endurance: decreased activity tolerance, fatigues easily during functional activities Pain: patient describes pain as in bilateral shoulders and arms when completing ROM Action Taken: modified activities within pain tolerance, patient agreed to continue therapy Self Cares: FIM: 7=independent/complete; 6=independent/modified; 5=supervision/set up; 4=minimal assist ; 3=moderate assist ; 2=maximal assist ; 1=dependent; N/A=not applicable; NT=not tested Feeding: TBA Grooming: TBA Upper Body Dressing: TBA Lower Body Dressing: TBA Toileting: TBA Bathing: NT Transfers Bed Mobility: TBA Sit to Stand: TBA Toilet: TBA Tub/Shower: TBA Cognition: General Comments: Per interview and observation of functional performance, cognition appears grosslyintact. Patient does not report any changes in cognition. Will further assess if indicated. Orientation: A&O to person, place, time Safety/Judgement: appears intact per interview/observation Problem Solving: appears intact per interview/observation Home Management: Meal Prep: defers to spouse, NT Education: Provided patient, family education, training, and/or instruction in the following areas as relevant to meaningful participation in daily occupations: role of occupational therapy and provided support and encouragement and answered questions related to rehab course. Patient and/or caregiver response to teaching: verbalized understanding Adaptive Equipment Recommendations: Need more time to determine extent of adaptive equipment needs Please refer to physical therapy notes for equipment needs related to mobility. Comments: Pt's spouse was present during session. Pt's call light was within reach upon leaving. Assessment/Recommendations: Pt is a 64 y/o male s/p Radical resection of thoracic spinal cord tumor. Pt was evaluated this AM atbedside. Pt able to participate minimally with BUE ROM due to pain and spacticity. Pt tolerated shoulder ROM to ~ 90 degrees. Elbow, wrist, and fingers were wfl but increased tone noted. Pt's cognitionwas intact for tasks completed. Will continue to address adl's and functional mobility as able. Will follow in acute care 5 x per week. Discharge needs uncertain at this time. Will make recommendations as able. Plan of Care ADL/IADL training, adaptive equipment training as needed, UE function, UE ROM/strengthening/endurance within activity guidelines, cognition/safety, functional mobility and patient/family education Goals Functional goals to be met prior to discharge from acute service: Patient will demonstrate independence with upper extremity conditioning exercises to maximize endurance for ADL completion. Patient will complete upper extremity dressing with stand by assist. Patient will complete grooming/hygiene tasks with stand by assist. Patient will complete toilet/commode transfers with contact guard assist. Progress towards initial goals will be documented in future notes. Patient's Goals: unstated Amount of time spent in patient contact: 30 minutes Abby Ellsworth OTR/L (pager) OT Dept #: [phone] - OT Weekend Pager #: [phone] - [facility] [place] Main #: [phone] --- End of Report --- Initial Assessments - Spenser Morocho - 04/11/2010 11:47 PM CDT [facility] Med-Surg / ICU / Rehab / Burn Nursing Initial Assessment Note GENERAL INFORMATION/PATIENT IDENTIFICATION/HISTORY Actual Arrival Date on Unit: 04/11/10 Actual Arrival Time on Unit: 2029 Patient a transfer from another hospital for trauma?: No Primary Care Physician or Clinic: (not recorded) Patient Identity Confirmed By: Full name including last, first, and middle;Birthdate Source of Identifying Information: Family Person (first/last name/phone number) who can help make medical decisions or help in care after hospitalization?: Heather - Recent Exposure to Communicable Diseases?: No History for Resistant Organism?: None Herbal Medications?: No Allergies: Review of patient's allergies indicates no known allergies. Prescriptions prior to admission Medication Sig ??? [...] sodium (AKA ENEMEEZ) 283 MG enema Insert 1 Enema rectally daily. ??? enoxaparin (AKA LOVENOX) 150 MG/ML injection Inject 0.7 mL subcutaneously every 12 hours. ??? furosemide (AKA LASIX) 80 MG tablet Take 80 mg by mouth daily. ??? Gabapentin (AKA NEURONTIN) 100 MG tablet Take 2 Tabs by mouth three times a day. ??? LORazepam (AKA ATIVAN) 0.5 MG tablet Take 2 Tabs by mouth three times a day. ??? metoPROLOL tartrate (LOPRESSOR) 50 MG tablet Take 1 Tab by mouth two times a day. ??? mupirocin (AKA BACTROBAN) 2 % ointment Apply 0.5 Inches topically two times a day. ??? OMEGA-3 FATTY ACIDS OR Take 1 Cap by mouth daily. ??? potassium chloride (K-DUR) 20 MEQ tablet Take 1 Tab by mouth 4 times a day. ??? senna (AKA SENOKOT) 8.6 MG tablet Take 1 Tab by mouth 4 times a day. ??? TRIMETHOPRIM OR Take 100 mg by mouth daily. IMMUNIZATION ASSESSMENT Influenza Assessment Current Date is Between July 20 - April 10?: Yes Patient Age & Risk Factors: 50 yrs or older Vaccine Status: Vaccine received this season. Document in Immunization/injection activity if not already done (stop here) Pneumococcal Assessment Assessment of Age/Risk Factors: Age 19 - 64 years old who smoke cigarettes Vaccine Status: Received a dose before age 65, LESS than 5 years ago (stop here) H1N1 Influenza Assessment Vaccine Status: Vaccine received this season. Document in Immunization/injection activity if not already done (stop here) HEAD TO TOE ASSESSMENT Neurological Neuro Assessment: Sensation Sensation: Tingling Sensation Location: Left leg;Right leg EENT Head/Neck Assessment: No apparent abnormalities Eye Assessment: Vision impairment Glasses and/or contacts?: Glasses - not with patient Ear Assessment: No apparent abnormalities Nose Assessment: No apparent abnormalities Throat/Mouth Assessment: No apparent abnormalities Patient have special speech, hearing, or vision needs?: No special needs identified Respiratory Respiratory Assessment: No apparent abnormalities Cough?: No Sputum?: No Respiratory Needs Likely at Discharge?: No Cardiovascular Cardiovascular Assessment: No apparent abnormalities Gastrointestinal/Nutrition Date of Last Bowel Movement: (not recorded) GI/Nutritional Assessment: (Pt on bowel regimen, 2 senna HS, 2 senna am, then enema) Diet History: Regular diet Diet History Additional Information: (not recorded) Nutrition Consult Screening: No GI/nutrition screening criteria applicable Genitourinary Assessment: (Pt straight caths daily.) Arnol Scale Sensory Perception: 1 Moisture Exposure: 3 Activity: 1 Mobility: 1 Nutrition: 1 Friction/Shear: 2 Arnol Score: 9 Integumentary Integumentary Assessment: No apparent abnormalities;Skin intact Musculoskeletal Musculoskeletal Assessment: Other (see comments) (Pt parapalegic.) MD notified of potential rehab or PT/OT needs due to mobility?: Other (see comments) (Pt may possibly need short term rehab after discharge.) PAIN Patient Experiencing Pain?: Unable to assess pain status due to patient receiving sedation or paralytic agents FUNCTIONAL Recent changes in level of ADLs?: (not recorded) Eating - Current Level of Assist: Independent Activity - Current Level of Assist: Assistance required Elimination - Current Level of Assist: Assistance required Hygiene - Current Level of Assist: Assistance required Functional Screening: Anticipate functional status will change/improve, will continue to assess andmake appropriate referrals/interventions PSYCHOSOCIAL/SPIRITUAL/BUDDHISM/CULTURAL/ABUSE/CHEMICAL Suicide Health Inventory Do you currently have or recently had thoughts of harming or killing yourself?: Unable to assess For nursing interventions, see policy: PC:12:10 History Alcohol Use No History Drug Use No Mental Health Assessment: (History of depression) Occupation: (not recorded) Lives: With spouse Living [...] 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, 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, 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 Recommended Cultural practices that affect patient care (per Best Care Questionnaire)?: No Abuse/Assault Screening: No evidence of assault or abuse Chemical Use Screening: No chemical use screening criteria applicable SAFETY Falls Risk Assessment Patient: Sedated ICU Patient with RASS Score of -3,-4 or -5 (Stop Here; patient on low risk falls care plan) Restraints Assessment Restraint Risks: (not recorded) Patient [...] Rate Site acetaminophen (aka TYLENOL) tablet Given 04/18/2010 7:50 PM CDT 650 mg 325-650 mg 325-650 mg, Oral, Q4H PRN, Pain/Fever, Starting on [place] 04/13/10 at 0219, Until [place] 04/20/10 at 1444, Maximum Daily Acetaminophen dose for patients > 53 k grams per 24 hours Maximum Daily Acetaminophen dose for patients < 53 k mg/kg/day This includes all sources of acetaminophen such as acetaminophen with codeine, acetaminophen with hydrocodone and acetaminophen with oxycodone. Given 04/17/2010 5:30 PM CDT 650 mg Given 04/17/2010 12:48 PM CDT 650 mg atorvastatin (aka LIPITOR) tablet 40 mg Given 04/20/2010 8:00 AM CDT 40 mg 40 mg, Oral, DAILY, First dose on Sat04/12/10 at 0800, Until Discontinued Given 04/19/2010 8:00 AM CDT 40 mg Given 04/18/2010 8:00 AM CDT 40 mg baclofen (aka LIORESAL) tablet 20 mg Given 04/18/2010 1:23 PM CDT 20 mg 20 mg, Oral, BID PRN, spasms, Starting on Sat04/11/10 at 2018, Until Sat04/20/10 at 1444 Given 04/12/2010 9:05 PM CDT 20 mg Given 04/12/2010 3:51 PM CDT 20 mg ciprofloxacin (aka CIPRO) tablet 500 mg Given 04/16/2010 10:00 AM CDT 500 mg 500 mg, Oral, Q12H 1000 2200, First dose on Sat04/14/10 at 2200, For 7 days, Meals or dairy products decrease absorption. Give 1 hour before or 2 hours after meals. Hold enteral feedings 1 hour before and 1 hour after meals. NG/OGT: Crush immediate-release tablet and mix with water. Flush tube before and after administration. Given 04/15/2010 10:00 PM CDT 500 mg Given 04/15/2010 10:00 AM CDT 500 mg citalopram (aka CELEXA) tablet 40 mg Given 04/20/2010 8:00 AM CDT 40 mg 40 mg, Oral, DAILY, First dose on Sat04/12/10 at 0800, Until Discontinued Given 04/19/2010 8:00 AM CDT 40 mg Given 04/18/2010 8:00 AM CDT 40 mg cyclobenzaprine (aka FLEXERIL) tablet 10 mg Given 04/20/2010 8:00 AM CDT 10 mg 10 mg, Oral, BID, First dose on Sat04/11/10 at 2025, Until Discontinued Given 04/19/2010 8:00 PM CDT 10 mg Given 04/19/2010 8:00 AM CDT 10 mg dextrose 5%-NaCl 0.45%-KCl 20 Started 04/13/2010 5:30 AM CDT 1,000 mL 100 mL/hr mEq/liter infusion 1,000 mL 1,000 mL, Intravenous, at 100 mL/hr, CONTINUOUS, Starting on [place] 04/13/10 at 0530 docusate sodium (aka ENEMEEZ) enema 1 En ronald Given 04/20/2010 8:00 AM CDT 1 Enema 1 Enema, Rectal, DAILY, First dose on Sat04/12/10 at 0800, Until Discontinued, as stool-softner Given 04/17/2010 10:00 AM CDT 1 Enema Given 04/16/2010 9:00 PM CDT 1 Enema enoxaparin (aka LOVENOX) injection 100 m g Given 04/19/2010 9:26 AM CDT 100 mg 100 mg, Subcutaneous, Q12H (NON-STND), First dose on Sat04/15/10 at 0926 Given 04/18/2010 9:26 PM CDT 100 mg Given 04/18/2010 9:26 AM CDT 100 mg enoxaparin (aka LOVENOX) injection 40 mg Given 04/14/2010 4:00 PM CDT 40 mg 40 mg, Subcutaneous, Q24H, First dose on Sat04/13/10 at 1543 Given 04/13/2010 3:43 PM CDT 40 mg famotidine (aka PEPCID) tablet 20 mg Given 04/12/2010 8:00 AM CDT 20 mg 20 mg, Oral, BID, First dose on Sat04/11/10 at 2043, Until Discontinued Given 04/11/2010 11:00 PM CDT 20 mg ferrous sulfate tablet 325 mg Given 04/20/2010 8:00 AM CDT 325 mg 325 mg, Oral, QDAY WITH MEAL, First dose on Sat04/17/10 at 1222, Until Discontinued Given 04/19/2010 8:00 AM CDT 325 mg Given 04/18/2010 8:00 AM CDT 325 mg furosemide (aka LASIX) tablet 80 mg Given 04/13/2010 8:00 AM CDT 80 mg 80 mg, Oral, DAILY, First dose on Sat04/12/10 at 0800, Until Discontinued Given 04/12/2010 8:00 AM CDT 80 mg gabapentin (aka NEURONTIN) capsule 200 m g Given 04/20/2010 8:00 AM CDT 200 mg 200 mg, Oral, TID, First dose on Sat04/11/10 at 2030, Until Discontinued Given 04/19/2010 8:00 PM CDT 200 mg Given 04/19/2010 8:00 AM CDT 200 mg hydrogen peroxide 3 % topical solution Given 04/11/2010 4:15 PM CDT 473 mL INTRA-OP, Starting on Sat04/11/10 at 1142, For 1 dose, Verify Route and Dose with Surgeon Prior to Administration HYDROmorphone (aka DILAUDID) 10 mg Started 04/11/2010 10:00 PM 0.2 mg/hr 1 mL/hr in NaCl 0.9 % 50 mL infusion CDT Intravenous, CONTINUOUS, Starting on Sat04/11/10 at 2043, This medication is a PINCH (high risk) medication. Basal (hourly) rate will run continuously at 0.2 mg/hour; Intermittent (bumps) 0.3 mg bumps every 30 minutes; Maximum of 0.8 mg/hour; Titrate to RASS goal equal to: [ 0, patient is alert and calm]. HYDROmorphone (aka Rate/Dose Change 04/12/2010 12:02 AM 0.2 mg/hr 1 mL/hr DILAUDID) 10 mg in NaCl CDT 0.9 % 50 mL infusion 0.2 mg/hr (rounded to 1 mL/hr), Intravenous, CONTINUOUS, Starting on Sat04/12/10 at 0002, This medication is a PINCH (high risk) medication. Basal (hourly) rate will run continuously at 0.2 - 0.4 mg/hour; Intermittent (bumps) 0.3 mg bumps every 30 minutes; Maximum of 0.8 mg/hour; Titrate to RASS goal equal to: [ 0, patient is alert and calm]. insulin regular (aka humULIN R, novoLIN R) Given 04/17 12:00 PM CDT 6 Units injection 2-12 Units 2-12 Units, Subcutaneous, PRN BASED ON BLOOD SUGAR, Blood Sugar >, 120, Starting on Sat04/11/10 at 2041, Until Sat04/20/10 at 1444, Blood Sugar <60 give 1 amp D50 Blood Sugar 61-120 give 0 units Blood Sugar 121-150 give 2 units Blood Sugar 151-180 give 4 units Blood Sugar 181-210 give 6 units Blood Sugar 211-240 give 8 units Blood Sugar 241-270 give 10 units Blood Sugar 271-300 give 12 units Blood Sugar >300 give 12 units then call H.O. Hazardous waste, dispose of in Black Box. Given 04/16/2010 11:44 AM CDT 2 Units Given 04/12/2010 1:30 PM CDT 2 Units Right Thigh lactated ringers infusion 1,000 mL Given 04/11/2010 11:48 AM CDT 1,000 mL 30 mL/hr 1,000 mL, Intravenous, at 30 mL/hr, PACU, Starting on Sat04/11/10 at 1147, Continuous lactulose oral liquid 20 g Given 04/19/2010 11:02 AM CDT 20 g 20 g, Oral, ONCE, On Sat04/19/10 at 1102, For 1 dose lactulose oral liquid 20 g Given 04/19/2010 3:30 PM CDT 20 g 20 g, Oral, ONCE, On Sat04/19/10 at 1440, For 1 dose, Please give if no BM by 3pm, thanks. lidocaine (aka LIDODERM) 5 % 2 Patch Given 04/20/2010 8:00 AM CDT 2 Patches 2 Patch, Transdermal, DAILY, First dose on Sat04/13/10 at 1012, Until Discontinued, Apply patch to the most painful area. Patch may remain in place for up to 12 hours in any 24 hour period, i.e., patches placed at 0800 should be removed at 2000. May cut patch to appropriate size; remove immediately if burning sensation occurs; wash after application. Given 04/19/2010 8:00 AM CDT 2 Patches Given 04/18/2010 8:00 AM CDT 2 Patches lidocaine-epinephrine 1-1:[id number] % injec tion Given 04/11/2010 3:50 PM CDT 10 mL INTRA-OP, Starting on Sat04/11/10 at 1142, For 1 dose, Verify Route and Dose with Surgeon Prior to Administration LORazepam (aka ATIVAN) injection 1 mg Given 04/11/2010 9:45 PM CDT 1 mg 1 mg, Intravenous, ONCE, On Sat04/11/10 at 2154, For 1 dose LORazepam (aka ATIVAN) tablet 1 mg Given 04/20/2010 8:00 AM CDT 1 mg 1 mg, Oral, TID, First dose on Sat04/11/10 at 2025, Until Discontinued Given 04/19/2010 8:00 PM CDT 1 mg Given 04/19/2010 8:00 AM CDT 1 mg magnesium citrate oral liquid 300 mL Given 04/19/2010 9:30 PM CDT 300 mL 300 mL, Oral, ONCE, On Sat04/19/10 at 1945, For 1 dose magnesium hydroxide (aka MILK OF MAGNESIA) Given 04/17/2010 12:2 2 PM CDT 30 mL oral liquid 30 mL 30 mL, Oral, NOW, On Sat04/17/10 at 1222, For 1 dose magnesium hydroxide (aka MILK OF MAGNESIA) Given 04/19/2010 11:0 3 AM CDT 30 mL oral liquid 30 mL 30 mL, Oral, NOW, On Sat04/19/10 at 1103, For 1 dose magnesium sulfate premade infusion 2 g Given 04/12/2010 12:31 AM CDT 2 g 2 g, Intravenous, PRN ELECTROLYTE PROTOCOL, Electrolyte Replacement, Starting on Sat04/11/10 at 204, For Serum Magnesium 1.5-1.7 mg/dL Call HO for Mg+2 replacement if serum creatinine >/= 2 mg/dL Check serum Magnesium after replacement. magnesium sulfate-dextrose 5% 1 g/100 mL Given 04/12/2010 6:19 A M CDT 1 g premixed infusion 1 g, Intravenous, PRN ELECTROLYTE PROTOCOL, Electrolyte Replacement, Starting on Sat04/11/10 at 2043, Until Sat04/12/10 at 1724, For Serum Magnesium 1.8-2.1 mg/dL Call HO for Mg+2 replacement if serum creatinine >/= 2 mg/dL Check serum Magnesium after replacement. midazolam (aka VERSED) injection 1 mg Given 04/11/2010 9:10 PM CDT 2 mg 1 mg, Intravenous, Q2H PRN, Sedation, Agitation, Starting on Sat04/11/10 at 2124 Given 04/11/2010 8:40 PM CDT 2 mg MORphine injectable 1-4 mg Given 04/13/2010 12:30 PM CDT 4 mg 1-4 mg, Intravenous, Q2H PRN, Pain, Starting on Sat04/13/10 at 0119, Until Sat04/20/10 at 1444 Given 04/13/2010 6:40 AM CDT 4 mg Given 04/13/2010 4:30 AM CDT 4 mg MORphine injection 1-4 mg Given 04/13/2010 1:20 AM CDT 4 mg 1-4 mg, Intravenous, Q2H PRN, Pain, Starting on Sat04/12/10 at 1121, Until Sat04/13/10 at 0119 Given 04/12/2010 8:20 PM CDT 4 mg Given 04/12/2010 2:51 PM CDT 4 mg NaCl 0.9 % infusion 1,000 mL Started 04/11/2010 8:43 PM CDT 1,000 mL 100 mL/hr 1,000 mL, Intravenous, at 100 mL/hr, CONTINUOUS, Starting on Sat04/11/10 at 2043 NaCl 0.9 % infusion 1,000 mL Started 04/13/2010 2:35 PM CDT 1,000 mL 125 mL/hr 1,000 mL, Intravenous, at 125 mL/hr, CONTINUOUS, Starting on Sat04/13/10 at 1416 NaCl 0.9 % infusion 1,000 mL Started 04/16/2010 3:30 PM CDT 1,000 mL 125 mL/hr 1,000 mL, Intravenous, at 125 mL/hr, CONTINUOUS, Starting on Sat04/16/10 at 1514 NaCl 0.9 % infusion 1,000 mL Started 04/17/2010 12:23 PM CDT 1,000 mL 75 mL/hr 1,000 mL, Intravenous, at 75 mL/hr, CONTINUOUS, Starting on Sat04/17/10 at 1223 NaCl 0.9 % infusion 500 mL Given 04/13/2010 2:30 AM CDT 500 mL 500 mL/hr 500 mL, Intravenous, at 500 mL/hr, NOW, On Sat04/13/10 at 0221, For 1 dose NaCl 0.9 % infusion 500 mL Given 04/13/2010 1:02 PM CDT 500 mL 500 mL/hr 500 mL, Intravenous, at 500 mL/hr, ONCE, On Sat04/13/10 at 1302, For 1 dose NaCl 0.9 % infusion 500 mL Started 04/15/2010 4:30 PM CDT 500 mL 250 mL/hr 500 mL, Intravenous, at 250 mL/hr, CONTINUOUS, Starting on 04/15/10 at 1612, For 2 hours oxycoDONE-acetaminophen (aka PERCOCET) Given 04/16/2010 11:45 PM CDT 2 Tablets 5-325 MG tablet 1-2 Tab 1-2 Tablet, Oral, Q4H PRN, Pain, Starting on Sat04/13/10 at 1201, Until [place] 04/20/10 at 1444, Maximum Daily Acetaminophen dose for patients > 53 k g/day Maximum Daily Acetaminophen dose for patients < 53 k mg/kg/day This product contains 325 mg Acetaminophen per tablet. Given 04/16/2010 5:00 PM CDT 2 Tablets Given 04/16/2010 8:10 AM CDT 2 Tablets polyethylene glycol 3350 (aka GLYCOLAX) powder Given 0 04/19/2010 8:00 AM CDT 17 g 17 g 17 g, Oral, DAILY, First dose on Sat04/12/10 at 0800, Give daily while on narcotics. Do not give if ileus present. Given 04/18/2010 8:00 AM CDT 17 g Given 04/17/2010 8:00 AM CDT 17 g potassium chloride (aka K-DUR,KLOR-CON M) Given 04/13/2010 12:10 PM CDT 20 mEq extended release tablet 20 mEq 20 mEq, Oral, QID, First dose on Sat04/11/10 at 2025 Given 04/13/2010 8:00 AM CDT 20 mEq Given 04/12/2010 8:00 AM CDT 20 mEq potassium chloride (aka K-DUR,KLOR-CON M) Given 04/14/2010 1:40 PM CDT 40 mEq extended release tablet 40 mEq 40 mEq, Oral, ONCE, On Sat04/14/10 at 1143, For 1 dose povidone-iodine (aka BETADINE) 10 % topi claude liquid Given 04/20/2010 8:00 AM CDT Topical, BID, First dose on Sat04/18/10 at 1106, Apply topically to posterior incision Hazardous waste, dispose of in Black Box. Given 04/19/2010 8:00 PM CDT Given 04/19/2010 8:00 AM CDT propofol (aka DIPRIVAN) Started 04/12/2010 5:57 AM CDT 30 mcg/ kg/min 18.77 mL/hr injection 1,043 mcg/min 10 mcg/kg/min ? 104.3 kg (rounded to 6.26 mL/hr), Intravenous, TITRATE, Starting on Sat04/11/10 at 2154, Until Sat04/12/10 at 1108, Titrate to RASS goal equal to: [ -1, patient is drowsy ]. Started 04/12/2010 1:00 AM CDT 30 mcg/kg/min 18.77 mL/hr Started 04/11/2010 10:00 PM CDT 25 mcg/kg/min 15.65 mL/hr remove lidocaine patch 1 Each Given 04/19/2010 9:00 PM CDT 1 Each HS, First dose on Sat04/13/10 at 2100, Until Discontinued Given 04/18/2010 9:00 PM CDT 1 Each Given 04/17/2010 9:00 PM CDT 1 Each senna (aka SENOKOT) tablet 8.6 mg Given 04/20/2010 8:00 AM CDT 8.6 mg 8.6 mg (1 Tablet), Oral, QID, First dose on Sat04/11/10 at 2024, Until Discontinued, as laxative/stimulant agent Given 04/19/2010 8:00 PM CDT 8.6 mg Given 04/19/2010 4:00 PM CDT 8.6 mg trimethoprim (aka TRIMPEX) tablet 100 mg Given 04/12/2010 8:00 AM CDT 100 mg 100 mg, Oral, BID, First dose on Sat04/11/10 at 2024 Given 04/11/2010 11:00 PM CDT 100 mg trimethoprim (aka TRIMPEX) tablet 100 mg Given 04/14/2010 8:00 AM CDT 100 mg 100 mg, Oral, DAILY, First dose (after last modification) on Sat04/13/10 at 0800 Given 04/13/2010 8:00 AM CDT 100 mg trimethoprim (aka TRIMPEX) tablet 100 mg Given 04/20/2010 8:00 AM CDT 100 mg 100 mg, Oral, DAILY, First dose on Sat04/17/10 at 1505 Given 04/19/2010 8:00 AM CDT 100 mg Given 04/18/2010 8:00 AM CDT 100 mg vancomycin (aka VANCOCIN) 1,500 mg in NaCl Given 04/12 9:00 AM CDT 1,500 mg 0.9 % 500 mL IV PIGGYBACK Administer over 90 Minutes, Intravenous, Q12H (NON-STND), First dose on Sat04/11/10 at 2100, Until Discontinued Given 04/11/2010 9:00 PM CDT 1,500 mg vancomycin (aka VANCOCIN) 1,500 mg in NaCl Given 04/13 9:35 AM CDT 1,500 mg 0.9 % 500 mL IV PIGGYBACK Administer over 90 Minutes, Intravenous, Q12H (NON-STND), 2 doses, First dose (after last modification) on Sat04/12/10 at 2100, Last dose on Sat04/13/10 at 0900 Given 04/12/2010 9:00 PM CDT 1,500 mg warfarin (aka COUMADIN) tablet 7.5 mg Given 04/19/2010 4:00 PM CDT 7.5 mg 7.5 mg, Oral, WARFARIN - DAILY, First dose on Sat04/13/10 at 1600, Until Discontinued, Hazardous waste, dispose of in black box. Vitamin K antagonizes the effects of warfarin. Maintain consistent intake of vitamin K in the diet. Given 04/18/2010 4:00 PM CDT 7.5 mg Given 04/17/2010 4:00 PM CDT 7.5 mg documented in this encounter Active and Recently Administered Medications Times are shown in CDT. Scheduled Medication Order 04/18/2010 04/19/2010 04/20/2010 atorvastatin (aka LIPITOR) tablet 40 mg (CANCELED) 080 0 (Given - Provider: Bernard Alcantar) 0800 (Given - Provider: Bernard Alcantar) 0800 (Given - Provider: Bernard Alcantar) 40 mg, Oral, DAILY, First dose on Sat04/12/10 at 0800, Until Disc ontinued citalopram (aka CELEXA) tablet 40 mg (CANCELED) 0800 ( Given - Provider: Bernard Alcantar) 0800 (Given - Provider: Bernard Alcantar) 0800 (Given - Provider: Bernard Alcantar) 40 mg, Oral, DAILY, First dose on Sat04/12/10 at 0800, Until Disc ontinued cyclobenzaprine (aka FLEXERIL) tablet 10 mg (CANCELED) 0800 (Given - Provider: Bernard Alcantar)1999 (Given - Provider: Malika Maradiaga, VALERIE) 08 (Given - Provider: Bernard Alcantar)1999 (Given - Provider: Malika Maradiaga, VALERIE) 08 (Given - Provider: Bernard Alcantar) 10 mg, Oral, BID, First dose on Sat04/11/10 at 202, Until Discon tinued docusate sodium (aka ENEMEEZ) enema 1 Enema (CANCELED) 0800 (Refused - Provider: Bernard Alcantar) 0800 (Not Given - Provider: Bernard lu - Reason: Other (Enter Reason in Comment Area) - Comment: up with ther apy) 0800 (Given - Provider: Bernard Alcantar) 1 Enema, Rectal, DAILY, First dose on Sat04/12/10 at 0800, Until Discontinued enoxaparin (aka LOVENOX) injection 100 mg (CANCELED) 0 926 (Given - Provider: Bernard Alcantar)6 (Given - Provider: Malika Maradiaga RN) 0926 (Given - Provider: Bernard Alcantar) 100 mg, SC, Q12H (NON-STND), First dose on Sat04/15/10 at 0926, Until Discontinued ferrous sulfate tablet 325 mg 0800 (Given - Provider: Adam Alcantar) 08 (Given - Provider: Bernard Alcantar) 08 (Given - Provider: Bernard Alcantar ) 325 mg, Oral, QDAY CML, First dose on Sat04/17/10 at 1222, Until Discontinued gabapentin (aka NEURONTIN) capsule 200 mg (CANCELED) 0 800 (Given - Provider: Bernard Alcantar)1400 (Given - Provider: Bernard Alcantar)1999 (Given - Provider: Malika Maradiaga, VALERIE) 0800 (Given - Provider: Bernard Alcantar )1999 (Given - Provider: Malika Maradiaga RN) 08 (Given - Provider: Bernard M Noggle) 200 mg, Oral, TID, First dose on Sat04/11/10 at 2030, Until Disco ntinued lactulose oral liquid 20 g (COMPLETED) 1 102 (Given - Provider: Bernard Alcantar) 20 g, Oral, ONCE, 1 dose, Sat04/19/10 at 1102 lactulose oral liquid 20 g (COMPLETED) 1 530 (Given - Provider: Malika Maradiaga, VALERIE) 20 g, Oral, ONCE, 1 dose, Sat04/19/10 at 1440 lidocaine (aka LIDODERM) 5 % 2 Patch 0800 (Given - Provider: Bernard Alcantar) 0800 (Given - Provider: Bernard Alcantar) 0800 (Given - Provider: Bernard Alcantar) 2 Patch, Transdermal, DAILY, First dose on Sat04/13/10 at 1012, Until Discontinued LORazepam (aka ATIVAN) tablet 1 mg (CANCELED) 0800 (Gi lore - Provider: Bernard Alcantar)1400 (Given - Provider: Bernard Alcantar)1999 (Given - Provider: Malika Maradiaga, VALERIE) 0800 (Given - Provider: Bernard Alcantar )1999 (Given - Provider: Malika Maradiaga, VALERIE) 0800 (Given - Provider: Bernard Alcantar ) 1 mg, Oral, TID, First dose on Sat04/11/10 at 2025, Until Discont inued magnesium citrate oral liquid 300 mL (COMPLETED) 213 (Given - Provider: Malika Maradiaga, VALERIE) 300 mL, Oral, ONCE, 1 dose, Sat04/19/10 at 1945 magnesium hydroxide (aka MILK OF MAGNESIA) oral liquid 30 mL (COMPLETED) 1103 (Given - Provider: Bernard Alcantar) 30 mL, Oral, NOW, 1 dose, Sat04/19/10 at 1103 polyethylene glycol 3350 (aka GLYCOLAX) powder 17 g (C ANCELED) 0800 (Given - Provider: Bernard Alcantar) 0800 (Given - Provider: Bernard Alcantar) 0800 (Refused - Provider: Bernard Alcantar) 17 g, Oral, DAILY, First dose on Sat04/12/10 at 0800, Until Disco ntinued povidone-iodine (aka BETADINE) 10 % topical liquid 200 0 (Given - Provider: Malika Maradiaga, RN) 0800 (Given - Provider: Bernard Alcantar )1999 (Given - Provider: Malika Maradiaga, VALERIE) 0800 (Given - Provider: Bernard Alcantar ) Topical, BID, First dose on Sat04/18/10 at 1106, Until Discontinu ed remove lidocaine patch 1 Each (CANCELED) 2099 (Given - Provider: Malika Maradiaga, RN) 2100 (Given - Provider: Malika Maradiaga, RN) HS, First dose on Sat04/13/10 at 2100, Until Discontinued senna (aka SENOKOT) tablet 8.6 mg (CANCELED) 0800 (Giv en - Provider: Bernard Alcantar)1200 (Given - Provider: Bernard Alcantar)1600 (Given - Provider: Malika Maradiaga, VALERIE)1999 (Given - Provider: Malika Maradiaga RN) 0800 (Given - Provider: Bernard Alcantar)1200 (Given - Provider: Bernard Alcantar)1600 (Given - Provider: Malika Maradiaga, VALERIE)1999 (Given - Provider: Malika Maradiaga RN) 0800 (Given - Provider: Bernard Alcantar ) 1 Tab = 8.6 mg, Oral, QID, First dose on Sat04/11/10 at 2025, Until Discontinued trimethoprim (aka TRIMPEX) tablet 100 mg (CANCELED) 08 00 (Given - Provider: Bernard Alcantar) 0800 (Given - Provider: Bernard Alcantar) 0800 (Given - Provider: Bernard Alcantar) 100 mg, Oral, DAILY, First dose on Sat04/17/10 at 1505, Until Dis continued warfarin (aka COUMADIN) tablet 7.5 mg (CANCELED) 1600 (Given - Provider: Malika Maradiaga, VALERIE) 1600 (Given - Provider: Malika Maradiaga, RN) 7.5 mg, Oral, WARFARIN - 1600, First dos e on Sat04/13/10 at 1600, Until Discontinued PRN Medication Order 04/18/2010 04/19/2010 04/20/2010 acetaminophen (aka TYLENOL) tablet 325-650 mg 1950 (Gi lore - Provider: Malika Maradiaga, RN) 325-650 mg, Oral, Q4H PRN, Starting [place] 04/13/10 at 0219, Until Discontinued, Pain/Fever baclofen (aka LIORESAL) tablet 20 mg (CANCELED) 1323 ( Given - Provider: Bernard Alcantar) 20 mg, Oral, BID PRN, Starting 04/11/10 at 2018, Until Discont inued, spasms documented in this encounter Care Teams Senior Advisor Relationship Specialty Start Date End Date Unassigned, Provider PCP - General 11/28/01 05/21/[address] [place] [id number] documented as of this encounter
--- OUTSIDE RECORDS SUMMARY | 2022-06-20 02:36 | XMS_ITS | Encounter Summary ---
:1945 Author Organization [facility] Address [address], [place] [address] Care Team Providers Name Role Phone Unassigned, Provider Primary Care Provider Unavailable Encounter Details Date Type Department Care Team Description 04/19/2010 [facility] [address] [place] [address] Social History Tobacco Use Types Packs/Day Years Used Date Smoking Tobacco: Never Alcohol Use Standard Drinks/Week Comments No 0 (1 standard drink = 0.6 oz pure alcoho l) Sex Assigned at Date Recorded Male 08/06/2021 5:59 PM CDT documented as of this encounter Plan of Treatment Not on filedocumented as of this encounter Procedures Procedure Name Priority Date/Time Associated Comments Diagnosis XR ABD 2 VIEWS Discharge 04/19/2010 10:51 Results f or this ROUTINE Decision AM CDT procedure are i n the results section. documented in this encounter Results XR ABDOMEN ROUTINE 2 VIEWS (04/19/2010 10:51 [...] ad ditional decubitus film is available. Criselda SAMSON GD documented in this encounter Visit Diagnoses Not on filedocumented in this encounter Care Teams Chief Embalmer Relationship Specialty Start Date End Date Unassigned, Provider PCP - General 11/28/01 05/21/[address] [place] [id number] documented as of this encounter
--- OUTSIDE RECORDS SUMMARY | 2022-06-20 02:36 | XMS_ITS | Encounter Summary ---
:1945 Author Organization [facility] Address [address] [address] Care Team Providers Name Role Phone Unassigned, Provider Primary Care Provider Unavailable Encounter Details Date Type Department Care Team Description 04/12/2010 Scanned History External to Transferred Record, TRA NSFERRED RECORD Provider Social History Tobacco Use Types Packs/Day Years Used Date Smoking Tobacco: Never Alcohol Use Standard Drinks/Week Comments No 0 (1 standard drink = 0.6 oz pure alcoho l) Sex Assigned at Date Recorded Male 08/06/2021 5:59 PM CDT documented as of this encounter Progress Notes Interface, In Chrtscr And Scan - 04/12/2010 6:39 AM CDT documented in this encounter Plan of Treatment Not on filedocumented as of this encounter Visit Diagnoses Not on filedocumented in this encounter Care Teams Double Ending Machine Operator Relationship Specialty Start Date End Date Unassigned, Provider PCP - General 11/28/01 05/21/[address] [place] [address] documented as of this encounter
--- OUTSIDE RECORDS SUMMARY | 2022-06-20 02:36 | XMS_ITS | Encounter Summary ---
:1945 Author Organization [facility] Address [address] [place] [address] Care Team Providers Name Role Phone Unassigned, Provider Primary Care Provider Unavailable Encounter Details Date Type Department Care Team Description 04/11/2010 Consent for [facility] INFORM ED CONSENT Procedure/Treatment RECORD Social History Tobacco Use Types Packs/Day Years Used Date Smoking Tobacco: Never Alcohol Use Standard Drinks/Week Comments No 0 (1 standard drink = 0.6 oz pure alcoho l) Sex Assigned at Date Recorded Male 08/06/2021 5:59 PM CDT documented as of this encounter Progress Notes Interface, In Chrtscr And Scan - 04/21/2010 3:32 AM CDT documented in this encounter Plan of Treatment Not on filedocumented as of this encounter Visit Diagnoses Not on filedocumented in this encounter Care Teams Ui Ux Engineer Relationship Specialty Start Date End Date Unassigned, Provider PCP - General 11/28/01 05/21/[address] [place] [id number] documented as of this encounter
--- OUTSIDE RECORDS SUMMARY | 2022-06-20 02:36 | XMS_ITS | Encounter Summary ---
:1945 Author Organization [facility] Address [address] [place] [address] Care Team Providers Name Role Phone Unassigned, Provider Primary Care Provider Unavailable Encounter Details Date Type Department Care Team Description 04/13/2010 [facility] [address] [place], [place] [id number] Social History Tobacco Use Types Packs/Day Years [...] Comme nts XR PORTABLE CHEST 1 Routine 04/13/2010 8:44 AM Re sults for this VIEW CDT procedure are i n the results section. documented in this encounter Results XR PORTABLE CHEST 1 VIEW (04/13/2010 8:44 [...] pleural effusions. Cristine Balbuena PA-C RAD PORTABLE documented in this encounter Visit Diagnoses Not on filedocumented in this encounter Care Teams Conservation Or Heritage Architect Relationship Specialty Start Date End Date Unassigned, Provider PCP - General 11/28/01 05/21/[address] [place] [address] documented as of this encounter
--- OUTSIDE RECORDS SUMMARY | 2022-06-20 02:36 | XMS_ITS | Encounter Summary ---
:1945 Author Organization [facility] Address [address], [place] [address] Care Team Providers Name Role Phone Unassigned, [...] on filedocumented in this encounter Care Teams Wood Bucker Relationship Specialty Start Date End Date Unassigned, Provider PCP - General 11/28/01 05/21/[address] [place] [phone] documented as of this encounter
--- OUTSIDE RECORDS SUMMARY | 2022-06-20 02:36 | XMS_ITS | Encounter Summary ---
:1945 Author Organization [facility] Address [address] [address] Care Team Providers Name Role Phone Unassigned, Provider Primary Care Provider Unavailable Encounter Details Date Type Department Care Team Description 04/12/2010 [facility] Ul trasound [address] [place] [address] Social History Tobacco Use Types Packs/Day Years Used Date Smoking Tobacco: Never Alcohol Use Standard Drinks/Week Comments No 0 (1 standard drink = 0.6 oz pure alcoho l) Sex Assigned at Date Recorded Male 08/06/2021 5:59 PM CDT documented as of this encounter Plan of Treatment Not on filedocumented as of this encounter Procedures Procedure Name Priority Date/Time Associated Diagnosis Comme [facility] US LOWER EXTREMITY Routine 04/12/2010 12:07 PM Re sults for this BILAT VENOUS CDT procedure are i n DOPPLER the results section. documented in this encounter Results US VENOUS DUPLEX LOWER EXTREMITY BILATERAL (04/12/2010 [...] of left lower extremity D VT. Cristine SAMSON US documented in this encounter Visit Diagnoses Not on filedocumented in this encounter Care Teams Paper Steamer Relationship Specialty Start Date End Date Unassigned, Provider PCP - General 11/28/01 05/21/[address] [place] [phone] documented as of this encounter
--- OUTSIDE RECORDS SUMMARY | 2022-06-20 02:36 | XMS_ITS | Encounter Summary ---
:1945 Author Organization [facility] Address [address] [place] [address] Care Team Providers Name Role Phone Unassigned, Provider Primary Care Provider Unavailable Encounter Details Date Type Department Care Team Description 04/12/2010 [facility] [address] [place] [address] Social History Tobacco Use Types Packs/Day Years [...] Diagnosis Comme nts MR THORACIC SPINE Routine 04/12/2010 10:35 AM Res ults for this W/WO IV CONT CDT procedure are i n the results section. documented in this encounter Results MR THORACIC SPINE WITH/WITHOUT CONTRAST (04/12/2010 10:35 AM CDT) Anatomical Region Laterality Modality Spine, T-Spine, L-Spine, C-Spine, Skeletal Magnetic Resonance Specimen (Source) Anatomical Collection Method Collection Time Re ceived Time Location / / Volume Laterality 04/12/2010 10:35 AM CDT Narrative 04/12/2010 11:01 AM CDT MRI TH[facility]ACIC [facility]INE [facility] 04/12/2010 INDICATIONS: Status post tumor resection . [...] soft tissue post operative changes. Procedure Note Silvano Marcel M - 04/12/2010 MRI THORACIC SPINE [facility] 04/12/2010 INDICATIONS: Status post tumor resection . [...] operative changes. Lucy Colmenares PA-C RAD MRI documented in this encounter Visit Diagnoses Not on filedocumented in this encounter Care Teams Clinical Sociologist Relationship Specialty Start Date End Date Unassigned, Provider PCP - General 11/28/01 05/21/[address] [place] [phone] documented as of this encounter
--- OUTSIDE RECORDS SUMMARY | 2022-06-20 02:36 | XMS_ITS | Encounter Summary ---
:1945 Author Organization [facility] Address [address] [address] Care Team Providers Name Role Phone Unassigned, Provider Primary Care Provider Unavailable Encounter Details Date Type Department Care Team Description 04/14/2010 [facility] Ul trasound [address] [place] [address] Social History Tobacco Use Types Packs/Day Years Used Date Smoking Tobacco: Never Alcohol Use Standard Drinks/Week Comments No 0 (1 standard drink = 0.6 oz pure alcoho l) Sex Assigned at Date Recorded Male 08/06/2021 5:59 PM CDT documented as of this encounter Plan of Treatment Not on filedocumented as of this encounter Procedures Procedure Name Priority Date/Time Associated Diagnosis Comme [facility] US LOWER EXTREMITY Routine 04/14/2010 11:23 AM Re sults for this BILAT VENOUS CDT procedure are i n DOPPLER the results section. documented in this encounter Results US VENOUS DUPLEX LOWER EXTREMITY BILATERAL (04/14/2010 [...] of bilateral lower extremity veins performed by assistant softball coach. Study technically difficult due to consi derable soft tissue swelling. FINDINGS: RIGHT: Nonocclusive thrombus in the dist al common femoral, proximal femoral and profunda femoris veins, better docu mented today. Remainder of the visualized femoral, popliteal and refinery operator alkylation ior tibial veins are negative for DVT. [...] of bilateral lower extremity veins performed by assistant softball coach. Study technically difficult due to consi derable soft tissue swelling. FINDINGS: RIGHT: Nonocclusive thrombus in the dist al common femoral, proximal femoral and profunda femoris veins, better docu mented today. Remainder of the visualized femoral, popliteal and refinery operator alkylation ior tibial veins are negative for DVT. [...] nsiderable soft tissue swelling. Lucy SAMSON US documented in this encounter Visit Diagnoses Not on filedocumented in this encounter Care Teams Medical Office Administrator Relationship Specialty Start Date End Date Unassigned, Provider PCP - General 11/28/01 05/21/10 [address] [place] [address] documented as of this encounter
--- OUTSIDE RECORDS SUMMARY | 2022-06-20 02:36 | XMS_ITS | Encounter Summary ---
:1945 Author Organization [facility] Address [address], [place] [address] Care Team Providers Name Role Phone Unassigned, Provider Primary Care Provider Unavailable Encounter Details Date Type Department Care Team Description 04/19/2010 [facility] [address] [place] [address] Social History Tobacco Use Types Packs/Day Years Used Date Smoking Tobacco: Never Alcohol Use Standard Drinks/Week Comments No 0 (1 standard drink = 0.6 oz pure alcoho l) Sex Assigned at Date Recorded Male 08/06/2021 5:59 PM CDT documented as of this encounter Plan of Treatment Not on filedocumented as of this encounter Procedures Procedure Name Priority Date/Time Associated Comments Diagnosis XR ABD DECUB ONLY Discharge 04/19/2010 3:05 Results for this Decision PM CDT procedure are i n the results section. documented in this encounter Results XR ABDOMEN DECUBE ONLY (04/19/2010 3:05 PM [...] and small bowel. CONCLUSION: No pneumoperitoneum. Criselda SAMSON GD documented in this encounter Visit Diagnoses Not on filedocumented in this encounter Care Teams Hot Die Press Feeder Relationship Specialty Start Date End Date Unassigned, Provider PCP - General 11/28/01 05/21/[address] [place] [phone] documented as of this encounter
--- OUTSIDE RECORDS SUMMARY | 2022-06-20 02:36 | XMS_ITS | Encounter Summary ---
:1945 Author Organization [facility] Address [address] [place] [address] Care Team Providers Name Role Phone Unassigned, Provider Primary Care Provider Unavailable Encounter Details Date Type Department Care Team Description 04/12/2010 Orders Only External to Unknown, Physici an [address] [place], [place] [id number] (Wo rk) Social History Tobacco Use Types Packs/Day Years Used Date Smoking Tobacco: Never Alcohol Use Standard Drinks/Week Comments No 0 (1 standard drink = 0.6 oz pure alcoho l) Sex Assigned at Date Recorded Male 08/06/2021 5:59 PM CDT documented as of this encounter Procedure Notes Transferred Record, Provider - 04/12/2010 12:00 AM CDTAssociated Order(s): [facility] documented in this encounter Plan of Treatment Not on filedocumented as of this encounter Procedures Procedure Name Priority Date/Time Associated Diagnosis Comme nts SC[facility]ED [facility] 04/12/2010 12:00 AM Results for this CDT procedure are i n the results section . documented in this encounter Results [facility] (04/12/2010 12:00 AM CDT) Specimen (Source) Anatomical Location Collection Method / Collectio n Time Received Time / Laterality Volume 04/12/2010 Narrative 04/12/2010 12:00 AM CDT This result has an attachment that is no t available. Ordered by an unspecified provider. Transcriptions Transferred Record, Provider - 0 12:00 AM CDT Physician Unknown [email or web address] documented in this encounter Visit Diagnoses Not on filedocumented in this encounter Care Teams Billet Inspector Relationship Specialty Start Date End Date Unassigned, Provider PCP - General 11/28/01 05/21/10 [address] [place] [address] documented as of this encounter
--- OUTSIDE RECORDS SUMMARY | 2022-06-20 02:37 | XMS_ITS | Encounter Summary ---
:1945 Author Organization [employer] Address [address] [address] Care Team Providers Name Role Phone Unassigned, Provider Primary Care Provider Unavailable Encounter Details Date Type Department Care Team Description 04/05/2010 - Hospital Encounter RH S8 Maurice Baron Ependymoma; 04/06/2010 [address] [address] [address] [phone] [place], [place] [phone] (Wo rk) Social History Tobacco Use Types Packs/Day Years Used Date Smoking Tobacco: Never Alcohol Use Standard Drinks/Week Comments No 0 (1 standard drink = 0.6 oz pure alcoho l) Sex Assigned at Date Recorded Male 08/06/2021 5:59 PM CDT documented as of this encounter Last Filed Vital Signs Vital Sign Reading Time Taken Comments Blood Pressure 152/96 04/06/2010 7:00 AM CDT Pulse 106 04/06/2010 7:00 AM CDT Temperature 36.4 ??C (97.6 ??F) 04/06/2010 7:00 AM CDT Respiratory Rate 20 04/06/2010 7:00 AM CDT Oxygen Saturation 98% 04/06/2010 7:00 AM CDT Inhaled Oxygen Concentration - - Weight 104.3 kg (230 lb) 04/05/2010 3:56 PM CDT Height 177.8 cm (5' 10) 04/05/2010 8:10 AM CDT Body Mass Index 33 04/05/2010 8:10 AM CDT documented in this encounter Discharge Summaries Sayra Renteria - 04/06/2010 8:56 AM CDT [facility] Discharge Summary Report (MD) Admit Date/Time: 04/05/2010 7:24 AM Discharge Date: 04/06/2010 Service: Neurosurgery Admitting Diagnosis: Encounter Diagnoses Code Name Primary? 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 Dr Baron reviewed case and recommended repeat MRI as well as spinal angio with possible embolization Hospital Course: Following the spinal angio and embolization patient admitted to medical bed. Patient had some increased spacticity in LE over night and tight back. Baclofen dose was not ordered at usual dosage and patient states when he stays in one position so long his back does get tight. No neuro changes. Right groin puncture site is soft, no hematoma Discharge Disposition: Home Diet: General Activity: I have discussed with the patient and his that he should get help with transfers to wheel chair until tomorrow afternoon as currently he does a lot of that work himself. Discharge Medications: No change from prior to hospitalization. Patient will restart lovenox today and neurosurgery will give direction for when to stop for surgery next week Followup: Surgical resection is planned for next Saturday with Dr Baron. Neurosurgery will see patient prior to discharge to give instructions. This note completed by: YOSHI Hunt Time spent in d/c mgmt 45 minutes with >50% in counseling and coordination of care --- End of Report --- documented in this encounter Discharge Instructions Discharge InstructionsLinda Zuniga - 04/06/2010 9:38 AM CDT Images from the original note were not included. [address] [place] [id number] Discharge Instructions for: Carl Cullen Thank you for choosing [facility] as your hospital. A copy of your discharge instructions has been given to you. Please read the instructions carefully. The staff will go over this information with you and answer your questions. General Information Allergies: Review of patient's allergies indicates no known allergies. Phone number: Telephone Information: Discharging physician: Dr. Baron Discharge date: April 06, 2010 Primary Care Provider Primary care provider: Provider [...] in the Immun/Injection section of the chart H1N1 Influenza:reported previously receiving the H1N1 influenza vaccine and it is documented in the Immun/Injection section of the chart Home Medications Carefully read the medication handouts you are given. They contain information about the purpose andside effects of your medications. Talk to your doctor before taking other medications. For additional information about your medications, visit this [employer] website, [email or web address]. Current Discharge Medication List START taking these medications enoxaparin (AKA LOVENOX) 150 MG/ML injection Inject 0.7 mL subcutaneously every 12 hours. Qty: 2 mL Refills: 0 mupirocin (AKA BACTROBAN) 2 % ointment Apply 0.5 Inches topically two times a day. Qty: 5 g Refills: 0 CONTINUE these medications which have CHANGED baclofen (AKA LIORESAL) 10 MG tablet Take 2 Tabs by mouth two times a day as needed. Qty: 20 Tab Refills: 0 CONTINUE these medications which [...] MG enema Insert 1 Enema rectally daily. furosemide (AKA LASIX) 80 MG tablet Take 80 mg by mouth daily. Gabapentin (AKA NEURONTIN) 100 MG tablet Take 2 Tabs by mouth three times a day. LORazepam (AKA ATIVAN) 0.5 MG tablet Take 2 Tabs by mouth three times a day. metoPROLOL tartrate (LOPRESSOR) 50 MG tablet Take 1 Tab by mouth two times a day. OMEGA-3 FATTY ACIDS OR Take 1 Cap by mouth daily. potassium chloride (K-DUR) 20 MEQ tablet Take 1 Tab by mouth 4 times a day. senna (AKA SENOKOT) 8.6 MG tablet Take 1 Tab by mouth 4 times a day. TRIMETHOPRIM OR Take 100 mg by mouth daily. STOP taking these medications warfarin (COUMADIN) 5 MG tablet Comments: Reason for Stopping: Designated Pharmacy for Discharge Medications: [facility] If you were taking a medication before admission and you do not see it on the list of home medications, please contact your primary care doctor. Additional Orders When to Resume Normal Activities: You may resume normal activites in 2 days Discharge Diagnosis ependymoma Activity Restrictions Try to avoid heavy lifting and careful with personal transfer until 04/08. You may resume normal activities after these restrictons have ended unless your care provider gives you additional restrictions. Regular Diet Clinic Referral Scheduled for surgical resection next Saturday with Dr Baron. Instructions/prep per his office Home Care Instructions Patient Teaching Handouts HANDOUTS You have been given the following handouts. Please read them carefully: Post Intervention Site Care Valuables/Medications Disposition of Money: Not Applicable Disposition [...] of breath Community Resources NONE Contact Information [address] [address] For questions about your discharge instructions call the nursing unit : [phone] Emergency & Urgently Needed Care: For emergencies call 911 and/or get medical help right away. If you are a [facility] member and have medical needs after clinic hours you may call the CareLineat [phone] or . All medical devices (telemetry/IV/etc) unless otherwise ordered, have been removed before discharge. Smoking and second-hand smoke exposure: Smoking damages blood vessels, reduces the oxygen in your blood and makes your heart beat too fast. If you smoke you should quit. Everyone should avoid second- hand smoke. If you would like further assistance after your discharge, please contact [phone] or visit [email or web address] can offer further [...] weight will also be followed by the Wood Router Hand when you go in for your treatment. [...] check out. I understand my discharge instructions: Carl Dubon Voegele (or Valve And Regulator Repairer) documented in this encounter Medications at Time of Discharge Medication Sig Dispensed Refills Start Date End Date acetaminophen (AKA Take 1-2 Tabs by mouth 120 Tab 1 04/1911/06/2010 TYLENOL) 325 MG tablet every 4 hours as needed for Pain. atorvastatin (LIPITOR) Take 1 Tab by mouth 0 10/21/2014 40 MG tablet daily. baclofen (AKA LIORESAL) Take 2 Tabs by mouth 20 Tab 0 05/13/2010 10 MG tablet two times a day as needed. BACLOFEN IT 220 mcg by Intrathecal 0 0 06/01/2010 route daily. citalopram (AKA CELEXA) Take 40 mg by mouth 0 10/02/2011 40 MG tablet daily. cyclobenzaprine (AKA Take 10 mg by mouth 0 05/13/2010 FLEXERIL) 10 MG tablet two times a day. docusate sodium (AKA Insert 1 Enema 0 04/21/2010 ENEMEEZ) 283 MG enema rectally daily. enoxaparin (AKA Inject 0.7 mL 2 mL 0 04/06/20102009 LOVENOX) 150 MG/ML subcutaneously every injection 12 hours. ferrous sulfate 325 (65 Take 1 Tab by mouth 60 Tab 0 06/201007/27/2010 FE) MG tablet daily with breakfast. furosemide (AKA LASIX) Take 80 mg by mouth 0 04/20/2010 80 MG tablet daily. Gabapentin (AKA Take 2 Tabs by mouth 0 07/27/2010 NEURONTIN) 100 MG three times a day. tablet lactulose 10 GM/15ML Take 30 mL by mouth 240 mL 0 200907/27/2010 solution two times a day as needed. For constipation lidocaine (AKA Apply 2 Patches to 21 Patch 0 04/19/2010 LIDODERM) 5 % patch skin daily. LORazepam (AKA ATIVAN) Take 2 Tabs by mouth 0 09/17/2014 0.5 MG tablet three times a day. metoPROLOL tartrate Take 1 Tab by mouth 0 04/20/2010 (LOPRESSOR) 50 MG two times a day. tablet mupirocin (AKA Apply 0.5 Inches 5 g 0 04/05/201004/11 BACTROBAN) 2 % ointment topically two times a day. OMEGA-3 FATTY ACIDS OR Take 1 Cap by mouth 0 07/27/2010 daily. potassium chloride Take 1 Tab by mouth 4 0 04/20/2010 (K-DUR) 20 MEQ tablet times a day. povidone-iodine (AKA Apply topically two 15 mL [...] documented as of this encounter Progress Notes Linda Zuniga - 04/06/2010 10:53 AM CDT [facility] Hospital Discharge Note - Nursing Admission Date/Time: 04/05/2010 7:24 AM Attending MD: Maurice Baron Patient discharged: to Home. Discharge Date: 04/06/10 Discharge Time: 1050 Patient accompanied by: spouse and relative. Transported by: Wheelchair Valuables were taken home by patient: Yes Discharge instructions given and explained to patient: Yes Discharge Patient Education Plan completed, taught, and provided to patient/caregiver at discharge: Yes ?? Discussed medication risks with patient Patient understands medications usage and side effects states they have lovenox at home and have used it prior to intervention. Next dose this evening. Patient understands diagnosis Action Plan for management of symptoms/side effects/complications requiring medical attention established and shared with patient/caregiver Reviewed Post Intervention Site Care Handout, advised to call 911 if bleeding or swelling occurs as patient on lovenox and has no feeling below waist. Patient to return for scheduled surgery next Saturday Bactroban and hibiclens given to patient for use prior to surgery Patients general condition on discharge: Good All medical devices (telemetry/IV/etc) unless otherwise ordered, have been removed and stored: Yes Report Completed by: Linda Zuniga RN --- End of Report --- Geetha Osuna - 04/06/2010 10:01 AM CDT Neurosurgery Note: Spoke with patient and his family He is okay to discharge to home He will continue his Lovenox as he has been, last dose will be Saturday evening Surgery scheduled for Saturday at 12:30, he will arrive at [facility] at 10:30 They are aware he will need a Hibiclens wash the night and am prior to OR They also have Bactroban ointment, no questions on directions They have the clinic number if nay questions arise Plan: Discharge home today OR on Saturday at 12:30 Geetha Osuna RN Neurosurgery Nurse Clinician [phone] Radha Casper - 04/06/2010 5:42 AM CDT [facility] Hospital Progress Note (Nursing) Identify/Problem(s): S/P IR procedure Desired Outcome(s): No bleeding from Rt groin site Evaluation: Rt groin site has remained stable. VSS. Pt able to make his needs knows. At 0345 he experienced spasms in his thighs and hip. He thinks it is due to the smaller dose of baclofen PO that he received. MDcalled for higher dosing. Has been cathed x3 since admission. Plan: Probable dc this am Radha Casper RN --- End of Report --- Amanda Lindsay - 04/05/2010 10:38 PM CDT [facility] Patient's Valuables At Admission Patient Name: Carl Cullen Money Paper $: 0 Coins $: 0 Disposition of Money: Not Applicable Checkbook Checkbook: No Credit Cards/Licenses Name of Credit Cards: 0 Number of Credit Cards: 0 Social Security Card: No Passport: No Drivers' License: No Government ID: No Disposition of Cards/Licenses: Not Applicable Jewelry Jewelry: No Description of Jewelry: 0 Watch Watch: No [place] #: 0 Items Belonging to Other People Items Belonging to Other People: No No items were sent to the Hook And Eye Machine Operator's Office. I understand that I assume full responsibility for all clothing, personal items, or valuables retained by me in my hospital room. Any unclaimed personal items deposited into the custody of the hospital will be disposed of by the hospital if they are not claimed within 180 days of discharge. Patients' Signature Witness Guest Associate Valve And Regulator Repairer's Signature Witness (Print this note to be included in the patient valuables pouch.) I have received all of my belongings at discharge: Patient Signature: Date: Staff Signature: Date: --- End of Report --- Marimar Tomas, PharmD - 04/05/2010 8:03 PM CDT [facility] Clinical Pharmacy Medication Reconciliation Note Medication History: Medications marked Taking as of 04/05/10 encounter (Hospital Encounter) with MAURICE ABRON: atorvastatin (LIPITOR) 40 MG tablet Take 1 Tab by mouth daily. RESUMED baclofen (AKA LIORESAL) 10 MG tablet Take 10 mg by mouth two times a day as needed. RESUMED BACLOFEN IT 220 mcg by Intrathecal route daily. citalopram (AKA CELEXA) 40 MG tablet Take 40 mg by mouth daily. RESUMED cyclobenzaprine (AKA FLEXERIL) 10 MG tablet Take 10 mg by mouth two times a day. RESUMED Gabapentin (AKA NEURONTIN) 100 MG tablet Take 2 Tabs by mouth three times a day. RESUMED LORazepam (AKA ATIVAN) 0.5 MG tablet Take 2 Tabs by mouth three times a day. RESUMED 0.5mg TID metoPROLOL tartrate (LOPRESSOR) 50 MG tablet Take 1 Tab by mouth two times a day. RESUMED OMEGA-3 FATTY ACIDS OR Take 1 Cap by mouth daily. Not resumed senna (AKA SENOKOT) 8.6 MG tablet Take 1 Tab by mouth 4 times a day. RESUMED TRIMETHOPRIM OR Take 100 mg by mouth daily. RESUMED warfarin (COUMADIN) 5 MG tablet Take 5 mg by mouth daily. Take by mouth 2 tablets on Saturday and 1& 1/2 tablets all other days. Not resumed--planning OR on Saturday Medications Reviewed and Reconciled: Left MD note to review and correct, if appropriate, the following outpatient medications that were changed upon admit: LORazepam (AKA ATIVAN) 0.5 MG tablet Take 2 Tabs by mouth three times a day. RESUMED 0.5mg TID PHARMACIST NAME: Marimar Tomas PHARMD Phone/Pager #: [phone] --- End of Report --- Radha Bower - 04/05/2010 7:34 PM CDT 1830- arrived to unit from IR , alert and oriented. Pt does straight cath himself, right groin CDI,latest vs BP 146/90 Pulse 108 Temp(Src) 97.4 ??F (36.3 ??C) (Oral) Resp 17 Ht 5' 10 (1.778 m) Wt 104.327 kg (230 lb) SpO2 97% Martha Thomas - 04/05/2010 4:45 PM CDT [facility] PM&R Date of service: 04/05/2010 Diagnosis: No diagnosis found. Baclofen pump. HPI: taken from the chart. 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 Despite previous radiation and surgery tumor has enlarged and patient symptoms of LE weakness and decreased sensation have increased. Patient is currently wheelchair bound and self caths. Patient had been scheduled for surgical resection today with Dr Baron, however he feels he would like further imaging with MRI and angio and poss embo prior to surgery. Patient tells me that has a baclofen pump implanted. PMR called to eval pump after MRI procedure. Heis in angio. 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 DVT on coumadin/lovenox, HTN, dyslipidemia SH: , no smoke, no ETOH ROS: he denies any issues, after the MRI done today, he has not noted any changes in the legs,spasmsor any alarms. Allergies: No Known Allergies OBJECTIVE: Patient Vital Signs in the past 24 hrs: Height Wt - Scale Temp Temp src Pulse BP Resp SpO2 Oximetry Done On 04/05/10 1640 - - - - 98 136/92 mmHg 20 97 % - 04/05/10 1635 - - - - 93 144/85 mmHg 11 96 % - 04/05/10 1630 - - - - 94 159/91 mmHg 11 96 % - 04/05/10 1625 - - - - 92 153/89 mmHg 16 96 % - 04/05/10 1620 - - - - 94 151/87 mmHg 12 96 % - 04/05/10 1615 - - - - 93 149/88 mmHg 18 95 % - 04/05/10 1610 - - - - 94 147/87 mmHg 9 96 % - Gen: No acute distress, alert, cooperative. In angio Procedure note: Patient with pump located in the R lower abdominal quadrant. Baclofen pump interrogated: Last change on 03/09/2010 Pump serial number: [id number] Infusion drug: Baclofen Concentration: 1,000 mcg/ml Infusion mode: simple continuous Dose per day: baclofen 225.6 mcg/day [place] volume 6.2 ml Low reservoir alarm volume 1.5 ml Refill interval 20 days Alarm date: 04/25/2010 Alarms enabled. Labs: Lab Results Component Value Date/Time ??? INR 0.9 04/05/10 8:27 AM ??? SODIUM 141 04/05/10 10:52 AM ??? K 4.4 04/05/10 10:52 AM ??? BUN 11 04/05/10 10:52 AM ??? CREATININE 0.96 04/05/10 10:52 AM ??? GLUCOSE 99 04/05/10 10:52 AM ??? HGB 12.8* 04/05/10 10:52 AM ??? PLTS 139* 04/05/10 10:52 AM ASSESSMENT / PLAN: 64 year old male withwith known thoracic ependymoma and intrathecal baclofen pump s/p MRI. Pump settings unchanged and pump is currently working appropriately. ITB interrogated and remains with previous dose and settings. Alarms enabled. Next refill date before/on 04/25/2010. Please contact me or Dr. Randle if any problems or questions. Thank you, Martha South MD [phone] --- End of Report --- Sayra Renteria - 04/05/2010 11:55 AM CDT Interventional Neuroradiology We are asked to preform spinal angio poss embolization on this 64yo male with known thoracic ependymoma. Despite previous radiation and surgery tumor has enlarged and patient symptoms of LE weakness and decreased sensation have increased. Patient is currently wheelchair bound and self caths. Patient had been scheduled for surgical resection today with Dr Baron, however he feels he would like furtherimaging with MRI and angio and poss embo prior to surgery. Surgery is now scheduled for next Saturday. 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 DVT on coumadin/lovenox, HTN, dyslipidemia SH: , no smoke, no ETOH ROS: as above in PMH and HPI. Denies any current resp, cardiac, gi, endo, derm, or new neuro issues. Allergies: No Known Allergies Prior Encounter Medications Medication Sig Dispense Refill [...] enema Insert 1 Enema rectally daily. ??? furosemide (AKA LASIX) 80 MG tablet Take 80 mg by mouth daily. ??? Gabapentin (AKA NEURONTIN) 100 MG tablet Take 2 Tabs by mouth three times a day. ??? LORazepam (AKA ATIVAN) 0.5 MG tablet Take 2 Tabs by mouth three times a day. ??? metoPROLOL tartrate (LOPRESSOR) 50 MG tablet Take 1 Tab by mouth two times a day. ??? OMEGA-3 FATTY [...] and 1& 1/2 tablets all other days. Labs: Hgb 12.8, plt 139, creat 0.96, INR 0.9, PTT 26 Exam: BP 133/91 Pulse 80 Temp(Src) 97.4 ??F (36.3 ??C) (Oral) Resp 16 Ht 5' 10 (1.778 m) Wt 230 lb (104.327 kg) SpO2 98% Gen: lying on cart, NAD Neuro: A/O x3, speech clear and fluent. Moves upper extremities w/ intact strength and sensation bilat UE. No movement LE. Sensation is diminished past T4 Cardiac: S1S2 regular Lungs: clear, mallampati score 3 A: okay for moderate sedation P: spinal angio w/ poss embolization procedure its risks, benefits, and alternatives including but not limited to stroke, bleeding, renal failure, contrast dye or medication reaction, vessel injury, infection, spinal cord infarct/damage were discussed with patient and his family. Informed written and verbal consent obtained. If embolization completed will need medical bed post procedure. YOSHI Hunt documented in this encounter Procedure Notes Donnie Bean - 04/05/2010 5:39 PM CDT [facility] Radiology Procedure Note Radiologist: Donnie Bean MD Procedure: Spinal angiogram with embolization Post Operative Diagnosis: Mass Medications: Versed: 3.0 milligrams IV Fentanyl: 175 micrograms IV Contrast: Ultravist 300, 150 mL Fluoroscopy Time: 40.27 minutes Estimated Blood Loss: none and minimal Complications: none Specimens: none Findings: Embolized the left T4 segmental pedicle with gelfoam. No discernable tumor supply from T3-T9 segmental levels. No discernable tumor supply from the ASA arising from the left T9 level. Prolonged attempts to prophylactically embolize the right T4 segmental pedicle were not successful. Plan: Post procedure monitoring. Admit overnight. Probable discharge in am. Surgical resection planned for next saturday. Report completed by Donnie Bean MD [facility], PROVIDER - 04/05/2010 12:00 AM CDTAssociated Order(s): EKG IP; EKG IP documented in this encounter OR Notes H&P - [facility], Provider - 03/29/2010 12:00 AM CDT documented in this encounter Miscellaneous Notes [place] - [facility], PROVIDER - 04/25/2010 12:00 AM CDT [facility], PROVIDER - 04/06/2010 12:00 AM CDT [place] - [facility], PROVIDER - 04/05/2010 12:00 AM CDT [facility], PROVIDER - 04/05/2010 12:00 AM CDT documented in this encounter Plan of Treatment Not on filedocumented as of this encounter Procedures Procedure Name Priority Date/Time Associated Comments Diagnosis COMPLETE BLOOD COUNT-NO Routine 04/06/2010 5:10 AM Results for this DIFF CDT procedure are i n the results section. IR ANGIOGRAM SPINAL Routine 04/05/2010 5:48 PM Re sults for this SELECTIVE CDT procedure are i n the results section. MR LUMBAR SPINE W/WO IV Routine 04/05/2010 3:43 PM Results for this CONT CDT procedure are i n the results section. MR THORACIC SPINE W/WO Routine 04/05/2010 3:42 PM Results for this IV CONT CDT procedure are i n the results section. MR CERVICAL SPINE W/WO Routine 04/05/2010 3:41 PM Results for this IV CONT CDT procedure are i n the results section. BASIC METABOLIC PANEL Routine 04/05/2010 10:52 Re sults for this AM CDT procedure are i n the results section. COMPLETE BLOOD COUNT-NO Routine 04/05/2010 10:52 Results for this DIFF AM CDT procedure are i n the results section. ABO RH & ANTIBODY Routine 04/05/2010 8:29 AM Resu lts for this SCREEN (TYPE & SCREEN) CDT proce dure are in the results section. ABO/RH(D) RETYPE Routine 04/05/2010 8:27 AM Resul ts for this CDT procedure are i n the results section. APTT (ACTIVATED PARTIAL Routine 04/05/2010 8:27 AM Results for this THROMBOPLASTIN TIME CDT procedur e are in the results section. INR/PROTIME Routine 04/05/2010 8:27 AM Results f or this CDT procedure are i n the results section. EKG IP 04/05/2010 12:00 Results for this AM CDT procedure are i n the results section. documented in this encounter Results (ABNORMAL) Hemogram with Platelets (04/06/2010 5:10 AM CDT) P athologist Signature WBC 8.1 4.0 - 11.0 [facility] k/ul RBC 3.98 (L) 4.5 - 5.9 [facility] M/ul Hemoglobin 12.2 (L) 13.5 - 17.5 [facility] g/dl HCT 34.8 (L) 41.0 - 53.0 [facility] % MCV 87.5 80 - 100 fl [facility] MCH 30.7 26 - 34 pg [facility] MCHC 35.1 32 - 36 [facility] g/dl RDW 14.4 11.5 - 14.5 [facility] % Platelets 150 150 - 450 [facility] k/ul MPV 8.9 6.5 - 10.0 [facility] fl Specimen Anatomical Collection Method Collection Time Receive d Time (Source) Location / / Volume Laterality 04/06/2010 5:10 AM 0 5:13 CDT AM CDT Donnie Bean III, MD LAB_1 Performing Organization Address City/State/ZIP Code Phon e Number [address] [id number] [place], [place] [phone] IR SPINAL SELECT EACH VESSEL (04/05/2010 5:48 PM CDT) Anatomical Region Laterality Modality Abdomen, Chest X-Ray Angiography Specimen (Source) Anatomical Collection Method Collection Time Re ceived Time Location / / Volume Laterality 04/05/2010 5:48 PM CDT Narrative 04/05/2010 5:58 PM CDT 1. ENDOVASCULAR PARTICLE EMBOLIZATION OF THE LEFT T4 SEGMENTAL ARTERY 2. SPINAL ANGIOGRAM: ??SELECTIVE INJECTI ONS OF LEFT SUPREME INTERCOSTAL (T3 AND T4) RIGHT T4, BILATERAL T5, COMMON O RIGIN BILATERAL T6/T7, BILATERAL T8 AND BILATERAL T9 SEGMENTAL ARTERIAL PED ICLES 04/05/2010 INDICATION: ?? 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 He has had 3 previous surgic al resections as well as external beam radiation and cyber knife treatment . These interventions have been performed over approximately a 9 year pe riod of time. 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 He is to undergo a resection of this recurrence early in the coming week. [facility] [place] rosurgery has requested that we perform a spinal angiogram to map out ar terial supply to the surgical bed. T4 level arterial embolization is to be performed if technically possible. The patient is a T4 level paraplegic. CONSENT: ??The procedure and its indicat ions, majors risks, benefits and alternatives were discussed with the pat ient. ??Risks including but not limited to pain, groin hematoma, blood v essel damage, allergic reaction, renal damage, cardiopulmonary compromise and stroke were discussed. A signed informed consent ??was obtained f rom the patient. SEDATION: Moderate sedation was administ ered during the procedure by both the physician and a nurse trained in sed ation practice. ??A total of 3 mg of Versed and 175 mcg of fentanyl were adm inistered intravenously during the exam. Vital signs were continuously nae tored and remained within acceptable range. ??The patient's mental /neurologic status was unchanged after the exam was completed. The patien t was monitored in the fluoroscopy suite for 2 hours. CONTRAST: ??150 mL Ultravist 370. FLUOROSCOPY TIME: ??40.27 minutes. ESTIMATED BLOOD LOSS: ??Less than or equ al to 100 mL. PROCEDURE: The patient was placed supine upon the angiography table. ??The skin of the right groin was prepped and draped in sterile fashion. The right common femoral artery was accessed with a micropuncture set that was exchanged for a 5 Maori sheath. A 5 [facility] C2 catheter was then advanced over the angled Glidewire and then used to selectively catheterize and hand inject segmental arterial pedicles in o rder to perform spinal angiogram. Collectively the left supreme intercosta l artery (left T3 and T4 segmental arteries), right T4, bilateral T5, injec tions of pedicles which opacified T6 and T7 segmental arteries on each kylie e, bilateral T8 and bilateral T9 segmental arteries were imaged with meme ography. There is no discernible tumor supply demonstrated from these lev els. In addition, there is no supply to the tumor demonstrated from th e anterior spinal artery which opacifies from the left T9 segmental inj ection. It was decided to embolize T4 segmental level arterial supply. The left supreme intercostal origin was catheteri zed with the diagnostic catheter and an SL10 microcatheter then advanced over the Synchro 2 microwire until the tip the microcatheter was selectivel y within the left T4 segmental artery. Please note that there is some a natomic distortion presumably related to previous surgical interruptio ns of the segmental arteries. ?? Microcatheter angiogram was performed re vealing no definite tumor supply and no opacification of the spinal arter y. There is also no opacification of the T3 segmental artery. T4 segmental artery was therefore embolized with Gelfoam torpedoes. A postembolizati on angiogram shows no residual supply to the left T4 segmental pedicle. The microcatheter was removed. Multiple attempts were then made to reca theterize the right T4 segmental arterial ostium. These were without succ ess despite using a new diagnostic catheter attempts with microwire and mariposa rocatheter and with the Glidewire. Ultimately it was decided to stop future attempts given that the pedicle had not appeared to opacify the tumor. ? ?The catheters were removed. The sheath was removed. ??Manual compression was applied to the right groin until hemostasis was achieved. The proce dure appeared well tolerated and was without apparent complication. CONCLUSION: 1. The patient underwent endovascular Ge lfoam embolization of the left T4 segmental pedicle. This is to reduce reg ional blood supply to the operative bed. 2. Thoracic spinal angiography extending from the left T3-T4 level inferiorly to the bilateral T9 level marianna wed no definitive evidence of T4 level tumor stain. What is more, there i s no discernible tumor stain related to the anterior spinal artery ar ising from the left T9 segmental level. Procedure Note Donnie Bean - 04/06/2010 1. ENDOVASCULAR PARTICLE EMBOLIZATION OF THE LEFT T4 SEGMENTAL ARTERY 2. 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 He has had 3 previous surgic al resections as well as external beam radiation and cyber knife treatment . These interventions have been performed over approximately a 9 year pe riod of time. 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 He is to undergo a resection of this recurrence early in the coming week. [facility] has requested that we perform a spinal angiogram to map out ar terial supply to the surgical bed. T4 level arterial embolization is to be performed if technically possible. The patient is a T4 level paraplegic. CONSENT: The procedure and its indicatio ns, majors risks, benefits and alternatives were discussed with the pat ient. Risks including but not limited to pain, groin hematoma, blood v essel damage, allergic reaction, renal damage, cardiopulmonary compromise and stroke were discussed. A signed informed consent was obtained fro m the patient. SEDATION: Moderate sedation was administ ered during the procedure by both the physician and a nurse trained in sed ation practice. A total of 3 mg of Versed and 175 mcg of fentanyl were adm inistered intravenously during the exam. Vital signs were continuously nae tored and remained within acceptable range. The patient's mental/n eurologic status was unchanged after the exam was completed. The patien t was monitored in the fluoroscopy suite for 2 hours. CONTRAST: 150 mL Ultravist 370. FLUOROSCOPY TIME: 40.27 minutes. ESTIMATED BLOOD LOSS: Less than or equal to 100 mL. PROCEDURE: The patient was placed supine upon the angiography table. The skin of the right groin was prepped and draped in sterile fashion. The right common femoral artery was accessed with a micropuncture set that was exchanged for a 5 Maori sheath. A 5 [facility] C2 catheter was then advanced over the angled Glidewire and then used to selectively catheterize and hand inject segmental arterial pedicles in o rder to perform spinal angiogram. Collectively the left supreme intercosta l artery (left T3 and T4 segmental arteries), right T4, bilateral T5, injec tions of pedicles which opacified T6 and T7 segmental arteries on each kylie e, bilateral T8 and bilateral T9 segmental arteries were imaged with meme ography. There is no discernible tumor supply demonstrated from these lev els. In addition, there is no supply to the tumor demonstrated from th e anterior spinal artery which opacifies from the left T9 segmental inj ection. It was decided to embolize T4 segmental level arterial supply. The left supreme intercostal origin was catheteri zed with the diagnostic catheter and an SL10 microcatheter then advanced over the Synchro 2 microwire until the tip the microcatheter was selectivel y within the left T4 segmental artery. Please note that there is some a natomic distortion presumably related to previous surgical interruptio ns of the segmental arteries. Microcatheter angiogram was performed re vealing no definite tumor supply and no opacification of the spinal arter y. There is also no opacification of the T3 segmental artery. T4 segmental artery was therefore embolized with Gelfoam torpedoes. A postembolizati on angiogram shows no residual supply to the left T4 segmental pedicle. The microcatheter was removed. Multiple attempts were then made to reca theterize the right T4 segmental arterial ostium. These were without succ ess despite using a new diagnostic catheter attempts with microwire and mariposa rocatheter and with the Glidewire. Ultimately it was decided to stop future attempts given that the pedicle had not appeared to opacify the tumor. T he catheters were removed. The sheath was removed. Manual compression w as applied to the right groin until hemostasis was achieved. The proce dure appeared well tolerated and was without apparent complication. CONCLUSION: 1. The patient underwent endovascular Ge lfoam embolization of the left T4 segmental pedicle. This is to reduce reg ional blood supply to the operative bed. 2. Thoracic spinal angiography extending from the left T3-T4 level inferiorly to the bilateral T9 level marianna wed no definitive evidence of T4 level tumor stain. What is more, there i s no discernible tumor stain related to the anterior spinal artery ar ising from the left T9 segmental level. Maurice Baron MD RAD IR MR LUMBAR SPINE WITH/WITHOUT CONTRAST (04/05/2010 3:43 PM CDT) Anatomical Region Laterality Modality Spine, L-Spine, Skeletal Magnetic Resona nce Specimen (Source) Anatomical Collection Method Collection Time Re ceived Time Location / / Volume Laterality 04/05/2010 3:43 PM CDT Narrative 04/05/2010 4:39 PM CDT MRI CERVICAL, THORACIC AND LUMBAR SPINES [facility] 04/05/2010, 1541 hours INDICATIONS: Preop evaluation spinal cor d pathology. TECHNIQUE: Total spine without and with 20 cc of Magnevist. COMPARISON: None available. MRI CERVICAL SPINE: Image degradation se condary to patient motion. Vertebral body heights are maintained. U ncovertebral joint hypertrophy C2-C3: Disc dehydration and narrowing. N o localized disc protrusion. No central canal or foraminal stenoses. C3-C4 through C6-C7: Disc dehydration an d narrowing. Ventral thecal sac effacement by broad-based disc bulge ost eophyte complexes. Anterior posterior central canal stenoses. Modera tely severe to severe bilateral foraminal stenoses at all levels. C7-T1: Dehydration without significant d isc narrowing. Broad-based disc bulge. Patent central canal. Near homogenous vertebral marrow fatty c hanges throughout the cervical spine. Correlate clinically for radiatio n change. Diffuse spinal cord edema up to the medulla. Cystic changes in th e spinal cord at the cervicothoracic junction and upper thora cic spinal cord. MRI THORACIC SPINE: Enhancing intramedul joan neoplasm extends from T3-T5. The lesion measures 1.8 x 3.9 x 1.2 cm ( AP by oblique SI by TR). The lesion bulges posterior into the laminectomy d efect at T4. There are laminectomy defects at T3, T4, T5, and T6. Spinal co rd edema caudal to the lesion to the conus. Fluid signal collection in th e posterior paraspinal soft tissues at the level of the laminectomy. The co llection measures 2.1 x 8.4 x 2.5 cm in AP, SI and transverse diameters. T horacic intravertebral disc heights and hydration are generally maintained. Shallow annular disc bulges without spinal cord compression at T8-T9 through T11-T12. Homogenous fatty marrow changes suggest post radiation tr eatment. MRI LUMBAR SPINE: Vertebral body heights are maintained. T12-L1 through L1-L2: Hydration and disc heights are maintained without protrusion. No canal or foraminal stenos es. L2-L3: Disc dehydration without signific ant narrowing. Broad-based annular disc bulge. Moderate narrowing of the le ft neural foramen. L3-L4: Disc dehydration without signific ant narrowing. Broad-based annular disc bulge. Bilateral caudal foraminal e xtension. Mild bilateral foraminal stenoses. Mild central canal narrowing e xacerbated by facet arthropathy. L4-L5: Disc dehydration. Posterior disc narrowing and partial annular tear. Broad-based central disc protrusion. Mo derate bilateral foraminal and central canal stenoses exacerbated by fa cet arthropathy and ligamentum flavum hypertrophy. L5-S1: Severe loss of disc height and pa rtial dehydration. Disc bulge osteophyte complexes efface the ventral thecal sac. Bilateral caudal foraminal extension. Severe bilateral fo raminal stenoses. Central canal is adequate. Lower spinal cord edema approx imates the conus tip. Conus medullaris and nerve roots of the cauda equina otherwise appear unremarkable. Endplate spur formation throughout the l umbar spine primarily at the lumbosacral junction and lumbar facet ar thropathy. CONCLUSION: 1. 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 The lesion is inhomogeneous on the precontrast images. Cystic changes cephalad to the lesion in the thoracic and lower cervica l spinal cord. Diffuse cervical spinal cord edema with edema extending t o the medulla. Caudal extension of spinal cord edema approximates the conus medullaris. 2. T3-T6 laminectomy defects. The intram edullary tumor bulges into the laminectomy defect at T4. 3. Posterior paraspinal fluid collection at the level of the laminectomy defects. 4. Degenerative changes in the cervical spine and lumbar spine as detailed above. 5. Comparison studies if available may b e helpful. Procedure Note Silvano Marcel M - 04/05/2010 MRI CERVICAL, THORACIC AND LUMBAR SPINES [facility] 04/05/2010, 1541 hours INDICATIONS: Preop evaluation spinal cor d pathology. TECHNIQUE: Total spine without and with 20 cc of Magnevist. COMPARISON: None available. MRI CERVICAL SPINE: Image degradation se condary to patient motion. Vertebral body heights are maintained. U ncovertebral joint hypertrophy C2-C3: Disc dehydration and narrowing. N o localized disc protrusion. No central canal or foraminal stenoses. C3-C4 through C6-C7: Disc dehydration an d narrowing. Ventral thecal sac effacement by broad-based disc bulge ost eophyte complexes. Anterior posterior central canal stenoses. Modera tely severe to severe bilateral foraminal stenoses at all levels. C7-T1: Dehydration without significant d isc narrowing. Broad-based disc bulge. Patent central canal. Near homogenous vertebral marrow fatty c hanges throughout the cervical spine. Correlate clinically for radiatio n change. Diffuse spinal cord edema up to the medulla. Cystic changes in th e spinal cord at the cervicothoracic junction and upper thora cic spinal cord. MRI THORACIC SPINE: Enhancing intramedul joan neoplasm extends from T3-T5. The lesion measures 1.8 x 3.9 x 1.2 cm ( AP by oblique SI by TR). The lesion bulges posterior into the laminectomy d efect at T4. There are laminectomy defects at T3, T4, T5, and T6. Spinal co rd edema caudal to the lesion to the conus. Fluid signal collection in th e posterior paraspinal soft tissues at the level of the laminectomy. The co llection measures 2.1 x 8.4 x 2.5 cm in AP, SI and transverse diameters. T horacic intravertebral disc heights and hydration are generally maintained. Shallow annular disc bulges without spinal cord compression at T8-T9 through T11-T12. Homogenous fatty marrow changes suggest post radiation tr eatment. MRI LUMBAR SPINE: Vertebral body heights are maintained. T12-L1 through L1-L2: Hydration and disc heights are maintained without protrusion. No canal or foraminal stenos es. L2-L3: Disc dehydration without signific ant narrowing. Broad-based annular disc bulge. Moderate narrowing of the le ft neural foramen. L3-L4: Disc dehydration without signific ant narrowing. Broad-based annular disc bulge. Bilateral caudal foraminal e xtension. Mild bilateral foraminal stenoses. Mild central canal narrowing e xacerbated by facet arthropathy. L4-L5: Disc dehydration. Posterior disc narrowing and partial annular tear. Broad-based central disc protrusion. Mo derate bilateral foraminal and central canal stenoses exacerbated by fa cet arthropathy and ligamentum flavum hypertrophy. L5-S1: Severe loss of disc height and pa rtial dehydration. Disc bulge osteophyte complexes efface the ventral thecal sac. Bilateral caudal foraminal extension. Severe bilateral fo raminal stenoses. Central canal is adequate. Lower spinal cord edema approx imates the conus tip. Conus medullaris and nerve roots of the cauda equina otherwise appear unremarkable. Endplate spur formation throughout the l umbar spine primarily at the lumbosacral junction and lumbar facet ar thropathy. CONCLUSION: 1. 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 The lesion is inhomogeneous on the precontrast images. Cystic changes cephalad to the lesion in the thoracic and lower cervica l spinal cord. Diffuse cervical spinal cord edema with edema extending t o the medulla. Caudal extension of spinal cord edema approximates the conus medullaris. 2. T3-T6 laminectomy defects. The intram edullary tumor bulges into the laminectomy defect at T4. 3. Posterior paraspinal fluid collection at the level of the laminectomy defects. 4. Degenerative changes in the cervical spine and lumbar spine as detailed above. 5. Comparison studies if available may b e helpful. Lucy Colmenares PA-C RAD MRI MR THORACIC SPINE WITH/WITHOUT CONTRAST (04/05/2010 3:42 PM CDT) Anatomical Region Laterality Modality Spine, T-Spine, L-Spine, C-Spine, Skeletal Magnetic Resonance Specimen (Source) Anatomical Collection Method Collection Time Re ceived Time Location / / Volume Laterality 04/05/2010 3:42 PM CDT Narrative 04/05/2010 4:39 PM CDT MRI CERVICAL, THORACIC AND LUMBAR SPINES [facility] 04/05/2010, 1541 hours INDICATIONS: Preop evaluation spinal cor d pathology. TECHNIQUE: Total spine without and with 20 cc of Magnevist. COMPARISON: None available. MRI CERVICAL SPINE: Image degradation se condary to patient motion. Vertebral body heights are maintained. U ncovertebral joint hypertrophy C2-C3: Disc dehydration and narrowing. N o localized disc protrusion. No central canal or foraminal stenoses. C3-C4 through C6-C7: Disc dehydration an d narrowing. Ventral thecal sac effacement by broad-based disc bulge ost eophyte complexes. Anterior posterior central canal stenoses. Modera tely severe to severe bilateral foraminal stenoses at all levels. C7-T1: Dehydration without significant d isc narrowing. Broad-based disc bulge. Patent central canal. Near homogenous vertebral marrow fatty c hanges throughout the cervical spine. Correlate clinically for radiatio n change. Diffuse spinal cord edema up to the medulla. Cystic changes in th e spinal cord at the cervicothoracic junction and upper thora cic spinal cord. MRI THORACIC SPINE: Enhancing intramedul joan neoplasm extends from T3-T5. The lesion measures 1.8 x 3.9 x 1.2 cm ( AP by oblique SI by TR). The lesion bulges posterior into the laminectomy d efect at T4. There are laminectomy defects at T3, T4, T5, and T6. Spinal co rd edema caudal to the lesion to the conus. Fluid signal collection in th e posterior paraspinal soft tissues at the level of the laminectomy. The co llection measures 2.1 x 8.4 x 2.5 cm in AP, SI and transverse diameters. T horacic intravertebral disc heights and hydration are generally maintained. Shallow annular disc bulges without spinal cord compression at T8-T9 through T11-T12. Homogenous fatty marrow changes suggest post radiation tr eatment. MRI LUMBAR SPINE: Vertebral body heights are maintained. T12-L1 through L1-L2: Hydration and disc heights are maintained without protrusion. No canal or foraminal stenos es. L2-L3: Disc dehydration without signific ant narrowing. Broad-based annular disc bulge. Moderate narrowing of the le ft neural foramen. L3-L4: Disc dehydration without signific ant narrowing. Broad-based annular disc bulge. Bilateral caudal foraminal e xtension. Mild bilateral foraminal stenoses. Mild central canal narrowing e xacerbated by facet arthropathy. L4-L5: Disc dehydration. Posterior disc narrowing and partial annular tear. Broad-based central disc protrusion. Mo derate bilateral foraminal and central canal stenoses exacerbated by fa cet arthropathy and ligamentum flavum hypertrophy. L5-S1: Severe loss of disc height and pa rtial dehydration. Disc bulge osteophyte complexes efface the ventral thecal sac. Bilateral caudal foraminal extension. Severe bilateral fo raminal stenoses. Central canal is adequate. Lower spinal cord edema approx imates the conus tip. Conus medullaris and nerve roots of the cauda equina otherwise appear unremarkable. Endplate spur formation throughout the l umbar spine primarily at the lumbosacral junction and lumbar facet ar thropathy. CONCLUSION: 1. 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 The lesion is inhomogeneous on the precontrast images. Cystic changes cephalad to the lesion in the thoracic and lower cervica l spinal cord. Diffuse cervical spinal cord edema with edema extending t o the medulla. Caudal extension of spinal cord edema approximates the conus medullaris. 2. T3-T6 laminectomy defects. The intram edullary tumor bulges into the laminectomy defect at T4. 3. Posterior paraspinal fluid collection at the level of the laminectomy defects. 4. Degenerative changes in the cervical spine and lumbar spine as detailed above. 5. Comparison studies if available may b e helpful. Procedure Note Marcel Schaefer - 04/05/2010 MRI CERVICAL, THORACIC AND LUMBAR SPINES [facility] 04/05/2010, 1541 hours INDICATIONS: Preop evaluation spinal cor d pathology. TECHNIQUE: Total spine without and with 20 cc of Magnevist. COMPARISON: None available. MRI CERVICAL SPINE: Image degradation se condary to patient motion. Vertebral body heights are maintained. U ncovertebral joint hypertrophy C2-C3: Disc dehydration and narrowing. N o localized disc protrusion. No central canal or foraminal stenoses. C3-C4 through C6-C7: Disc dehydration an d narrowing. Ventral thecal sac effacement by broad-based disc bulge ost eophyte complexes. Anterior posterior central canal stenoses. Modera tely severe to severe bilateral foraminal stenoses at all levels. C7-T1: Dehydration without significant d isc narrowing. Broad-based disc bulge. Patent central canal. Near homogenous vertebral marrow fatty c hanges throughout the cervical spine. Correlate clinically for radiatio n change. Diffuse spinal cord edema up to the medulla. Cystic changes in th e spinal cord at the cervicothoracic junction and upper thora cic spinal cord. MRI THORACIC SPINE: Enhancing intramedul joan neoplasm extends from T3-T5. The lesion measures 1.8 x 3.9 x 1.2 cm ( AP by oblique SI by TR). The lesion bulges posterior into the laminectomy d efect at T4. There are laminectomy defects at T3, T4, T5, and T6. Spinal co rd edema caudal to the lesion to the conus. Fluid signal collection in th e posterior paraspinal soft tissues at the level of the laminectomy. The co llection measures 2.1 x 8.4 x 2.5 cm in AP, SI and transverse diameters. T horacic intravertebral disc heights and hydration are generally maintained. Shallow annular disc bulges without spinal cord compression at T8-T9 through T11-T12. Homogenous fatty marrow changes suggest post radiation tr eatment. MRI LUMBAR SPINE: Vertebral body heights are maintained. T12-L1 through L1-L2: Hydration and disc heights are maintained without protrusion. No canal or foraminal stenos es. L2-L3: Disc dehydration without signific ant narrowing. Broad-based annular disc bulge. Moderate narrowing of the le ft neural foramen. L3-L4: Disc dehydration without signific ant narrowing. Broad-based annular disc bulge. Bilateral caudal foraminal e xtension. Mild bilateral foraminal stenoses. Mild central canal narrowing e xacerbated by facet arthropathy. L4-L5: Disc dehydration. Posterior disc narrowing and partial annular tear. Broad-based central disc protrusion. Mo derate bilateral foraminal and central canal stenoses exacerbated by fa cet arthropathy and ligamentum flavum hypertrophy. L5-S1: Severe loss of disc height and pa rtial dehydration. Disc bulge osteophyte complexes efface the ventral thecal sac. Bilateral caudal foraminal extension. Severe bilateral fo raminal stenoses. Central canal is adequate. Lower spinal cord edema approx imates the conus tip. Conus medullaris and nerve roots of the cauda equina otherwise appear unremarkable. Endplate spur formation throughout the l umbar spine primarily at the lumbosacral junction and lumbar facet ar thropathy. CONCLUSION: 1. 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 The lesion is inhomogeneous on the precontrast images. Cystic changes cephalad to the lesion in the thoracic and lower cervica l spinal cord. Diffuse cervical spinal cord edema with edema extending t o the medulla. Caudal extension of spinal cord edema approximates the conus medullaris. 2. T3-T6 laminectomy defects. The intram edullary tumor bulges into the laminectomy defect at T4. 3. Posterior paraspinal fluid collection at the level of the laminectomy defects. 4. Degenerative changes in the cervical spine and lumbar spine as detailed above. 5. Comparison studies if available may b e helpful. Lucy Colmenares PA-C RAD MRI MR CERVICAL SPINE WITH/WITHOUT CONTRAST (04/05/2010 3:41 PM CDT) Anatomical Region Laterality Modality Spine, C-Spine, Neck, Vascular Magnetic Resonance Specimen (Source) Anatomical Collection Method Collection Time Re ceived Time Location / / Volume Laterality 04/05/2010 3:41 PM CDT Narrative 04/05/2010 4:39 PM CDT MRI CERVICAL, THORACIC AND LUMBAR SPINES [facility] MRI 04/05/2010, 1541 hours INDICATIONS: Preop evaluation spinal cor d pathology. TECHNIQUE: Total spine without and with 20 cc of Magnevist. COMPARISON: None available. MRI CERVICAL SPINE: Image degradation se condary to patient motion. Vertebral body heights are maintained. U ncovertebral joint hypertrophy C2-C3: Disc dehydration and narrowing. N o localized disc protrusion. No central canal or foraminal stenoses. C3-C4 through C6-C7: Disc dehydration an d narrowing. Ventral thecal sac effacement by broad-based disc bulge ost eophyte complexes. Anterior posterior central canal stenoses. Modera tely severe to severe bilateral foraminal stenoses at all levels. C7-T1: Dehydration without significant d isc narrowing. Broad-based disc bulge. Patent central canal. Near homogenous vertebral marrow fatty c hanges throughout the cervical spine. Correlate clinically for radiatio n change. Diffuse spinal cord edema up to the medulla. Cystic changes in th e spinal cord at the cervicothoracic junction and upper thora cic spinal cord. MRI THORACIC SPINE: Enhancing intramedul joan neoplasm extends from T3-T5. The lesion measures 1.8 x 3.9 x 1.2 cm ( AP by oblique SI by TR). The lesion bulges posterior into the laminectomy d efect at T4. There are laminectomy defects at T3, T4, T5, and T6. Spinal co rd edema caudal to the lesion to the conus. Fluid signal collection in th e posterior paraspinal soft tissues at the level of the laminectomy. The co llection measures 2.1 x 8.4 x 2.5 cm in AP, SI and transverse diameters. T horacic intravertebral disc heights and hydration are generally maintained. Shallow annular disc bulges without spinal cord compression at T8-T9 through T11-T12. Homogenous fatty marrow changes suggest post radiation tr eatment. MRI LUMBAR SPINE: Vertebral body heights are maintained. T12-L1 through L1-L2: Hydration and disc heights are maintained without protrusion. No canal or foraminal stenos es. L2-L3: Disc dehydration without signific ant narrowing. Broad-based annular disc bulge. Moderate narrowing of the le ft neural foramen. L3-L4: Disc dehydration without signific ant narrowing. Broad-based annular disc bulge. Bilateral caudal foraminal e xtension. Mild bilateral foraminal stenoses. Mild central canal narrowing e xacerbated by facet arthropathy. L4-L5: Disc dehydration. Posterior disc narrowing and partial annular tear. Broad-based central disc protrusion. Mo derate bilateral foraminal and central canal stenoses exacerbated by fa cet arthropathy and ligamentum flavum hypertrophy. L5-S1: Severe loss of disc height and pa rtial dehydration. Disc bulge osteophyte complexes efface the ventral thecal sac. Bilateral caudal foraminal extension. Severe bilateral fo raminal stenoses. Central canal is adequate. Lower spinal cord edema approx imates the conus tip. Conus medullaris and nerve roots of the cauda equina otherwise appear unremarkable. Endplate spur formation throughout the l umbar spine primarily at the lumbosacral junction and lumbar facet ar thropathy. CONCLUSION: 1. 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 The lesion is inhomogeneous on the precontrast images. Cystic changes cephalad to the lesion in the thoracic and lower cervica l spinal cord. Diffuse cervical spinal cord edema with edema extending t o the medulla. Caudal extension of spinal cord edema approximates the conus medullaris. 2. T3-T6 laminectomy defects. The intram edullary tumor bulges into the laminectomy defect at T4. 3. Posterior paraspinal fluid collection at the level of the laminectomy defects. 4. Degenerative changes in the cervical spine and lumbar spine as detailed above. 5. Comparison studies if available may b e helpful. Procedure Note SilvanoMarcel Bryn - 04/05/2010 MRI CERVICAL, THORACIC AND LUMBAR SPINES [facility] 04/05/2010, 1541 hours INDICATIONS: Preop evaluation spinal cor d pathology. TECHNIQUE: Total spine without and with 20 cc of Magnevist. COMPARISON: None available. MRI CERVICAL SPINE: Image degradation se condary to patient motion. Vertebral body heights are maintained. U ncovertebral joint hypertrophy C2-C3: Disc dehydration and narrowing. N o localized disc protrusion. No central canal or foraminal stenoses. C3-C4 through C6-C7: Disc dehydration an d narrowing. Ventral thecal sac effacement by broad-based disc bulge ost eophyte complexes. Anterior posterior central canal stenoses. Modera tely severe to severe bilateral foraminal stenoses at all levels. C7-T1: Dehydration without significant d isc narrowing. Broad-based disc bulge. Patent central canal. Near homogenous vertebral marrow fatty c hanges throughout the cervical spine. Correlate clinically for radiatio n change. Diffuse spinal cord edema up to the medulla. Cystic changes in th e spinal cord at the cervicothoracic junction and upper thora cic spinal cord. MRI THORACIC SPINE: Enhancing intramedul joan neoplasm extends from T3-T5. The lesion measures 1.8 x 3.9 x 1.2 cm ( AP by oblique SI by TR). The lesion bulges posterior into the laminectomy d efect at T4. There are laminectomy defects at T3, T4, T5, and T6. Spinal co rd edema caudal to the lesion to the conus. Fluid signal collection in th e posterior paraspinal soft tissues at the level of the laminectomy. The co llection measures 2.1 x 8.4 x 2.5 cm in AP, SI and transverse diameters. T horacic intravertebral disc heights and hydration are generally maintained. Shallow annular disc bulges without spinal cord compression at T8-T9 through T11-T12. Homogenous fatty marrow changes suggest post radiation tr eatment. MRI LUMBAR SPINE: Vertebral body heights are maintained. T12-L1 through L1-L2: Hydration and disc heights are maintained without protrusion. No canal or foraminal stenos es. L2-L3: Disc dehydration without signific ant narrowing. Broad-based annular disc bulge. Moderate narrowing of the le ft neural foramen. L3-L4: Disc dehydration without signific ant narrowing. Broad-based annular disc bulge. Bilateral caudal foraminal e xtension. Mild bilateral foraminal stenoses. Mild central canal narrowing e xacerbated by facet arthropathy. L4-L5: Disc dehydration. Posterior disc narrowing and partial annular tear. Broad-based central disc protrusion. Mo derate bilateral foraminal and central canal stenoses exacerbated by fa cet arthropathy and ligamentum flavum hypertrophy. L5-S1: Severe loss of disc height and pa rtial dehydration. Disc bulge osteophyte complexes efface the ventral thecal sac. Bilateral caudal foraminal extension. Severe bilateral fo raminal stenoses. Central canal is adequate. Lower spinal cord edema approx imates the conus tip. Conus medullaris and nerve roots of the cauda equina otherwise appear unremarkable. Endplate spur formation throughout the l umbar spine primarily at the lumbosacral junction and lumbar facet ar thropathy. CONCLUSION: 1. 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 The lesion is inhomogeneous on the precontrast images. Cystic changes cephalad to the lesion in the thoracic and lower cervica l spinal cord. Diffuse cervical spinal cord edema with edema extending t o the medulla. Caudal extension of spinal cord edema approximates the conus medullaris. 2. T3-T6 laminectomy defects. The intram edullary tumor bulges into the laminectomy defect at T4. 3. Posterior paraspinal fluid collection at the level of the laminectomy defects. 4. Degenerative changes in the cervical spine and lumbar spine as detailed above. 5. Comparison studies if available may b e helpful. Lucy Colmenares PA-C RAD MRI (ABNORMAL) HEMOGRAM/PLTS (04/05/2010 10:52 AM CDT) athologist Signature WBC 6.1 4.0 - 11.0 [facility] k/ul RBC 4.24 (L) 4.5 - 5.9 [facility] M/ul Hemoglobin 12.8 (L) 13.5 - 17.5 [facility] g/dl HCT 37.5 (L) 41.0 - 53.0 [facility] % MCV 88.5 80 - 100 fl [facility] MCH 30.1 26 - 34 pg [facility] MCHC 34.0 32 - 36 [facility] g/dl RDW 14.5 11.5 - 14.5 [facility] % Platelets 139 (L) 150 - 450 [facility] k/ul MPV 8.8 6.5 - 10.0 [facility] fl Specimen Anatomical Collection Method Collection Time Receive d Time (Source) Location / / Volume Laterality 04/05/2010 10:52 04/05/2010 AM CDT 11:11 AM CDT Maurice Baron MD LAB_1 Performing Organization Address City/State/ZIP Code Phon e Number [address] [address] [place], [place] [phone] BASIC METABOLIC PANEL (04/05/2010 10:52 AM CDT) athologist Signature BUN 11 7 - 20 [facility] mg/dl Sodium 141 135 - 145 [facility] mmol/L Potassium 4.4 3.5 - 5.1 [facility] mmol/L Chloride 103 98 - 107 [facility] mmol/L CO2 30 22 - 30 [facility] mmol/L Glucose 99 70 - 180 [facility] mg/dl Creatinine 0.96 0.66 - [facility] 1.25 mg/dl GFR, Estimated >60.00 >60 [facility] ml/min/1.7 3m2 GFR, Est., If >60.00 >60 [facility] Black ml/min/1.7 3m2 Calcium 9.3 8.4 - 10.2 [facility] mg/dl Anion Gap 8 3 - 11 [facility] (calc.) mmol/L Comment: PLEASE NOTE CHANGE IN REFERENCE RANGE Specimen Anatomical Collection Method Collection Time Receive d Time (Source) Location / / Volume Laterality 04/05/2010 10:52 04/05/2010 AM CDT 11:11 AM CDT Maurice Baron MD LAB_1 Performing Organization Address [facility] Phon e Number [address] [address] [place], [place] [phone] ABO Rh & Antibody Screen (Type & Screen) (04/05/2010 8:29 AM CDT) [facility] gist Method Time Signature Crossmatch 04/08/2010 [facility] Expires ABO/RH(D) A NEGATIVE [facility] Antibody NEGATIVE [facility] Screen Specimen Anatomical Collection Method Collection Time Receive d Time (Source) Location / / Volume Laterality 04/05/2010 8:29 AM 0 8:37 CDT AM CDT Maurice Baron MD LAB_1 Performing Organization Address [facility] Phon e Number [address] [address] [place], [place] [phone] ABO/RH(D) RETYPE (04/05/2010 8:27 AM CDT) P athologist Signature ABO/RH(D) A NEGATIVE [facility] Specimen Anatomical Collection Method Collection Time Receive d Time (Source) Location / / Volume Laterality 04/05/2010 8:27 AM 0 8:55 CDT AM CDT Maurice Baron MD LAB_1 Performing Organization Address [facility] Phon e Number [address] [address] [place], [place] [phone] aPTT (Activated Partial Thromboplastin Time) (04/05/2010 8:27 AM CDT) P athologist Signature PTT 26.0 24.0 - 37.0 [facility] sec Specimen Anatomical Collection Method Collection Time Receive d Time (Source) Location / / Volume Laterality 04/05/2010 8:27 AM 0 8:39 CDT AM CDT Maurice Baron MD LAB_1 Performing Organization Address City/[facility]/ZIP [facility] Phon e Number [address] [address] [place], [place] [phone] INR/Protime (PT/INR) (04/05/2010 8:27 AM CDT) P athologist Signature Protime 12.3 12.0 - 14.5 [facility] sec INR 0.9 [facility] Specimen Anatomical Collection Method Collection Time Receive d Time (Source) Location / / Volume Laterality 04/05/2010 8:27 AM 0 8:39 CDT AM CDT Maurice Baron MD LAB_1 Performing Organization Address [facility] Phon e Number [address] [address] [place], [place] [phone] EKG IP (04/05/2010 12:00 AM CDT) Specimen (Source) Anatomical Location Collection Method / Collectio n Time Received Time / Laterality Volume 04/05/2010 Narrative This result has an attachment that is no t available. 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 Mcmahan at [facility] in [place], [place] Patient Identity Confirmed By: Full name including last, first, and middle;Birthdate Source of Identifying Information: Patient;Family Person (first/last name/phone number) who can help make medical decisions or help in care after hospitalization?: Heather cullen, 1-2 other people (first/last name) you consider family who may need to be here beyond regular visiting hours?: Heather Voegele, Recent Exposure to Communicable Diseases?: No History [...] enema Insert 1 Enema rectally daily. ??? furosemide (AKA LASIX) 80 MG tablet Take 80 mg by mouth daily. ??? Gabapentin (AKA NEURONTIN) 100 MG tablet Take 2 Tabs by mouth three times a day. ??? LORazepam (AKA ATIVAN) 0.5 MG tablet Take 2 Tabs by mouth three times a day. ??? metoPROLOL tartrate (LOPRESSOR) 50 MG tablet Take 1 Tab by mouth two times a day. ??? OMEGA-3 FATTY [...] and 1& 1/2 tablets all other days. IMMUNIZATION ASSESSMENT Influenza Assessment Current Date is Between July 20 - April 10?: Yes Patient Age & Risk Factors: 50 yrs or older Vaccine Status: Vaccine received this season. Document in Immunization/injection activity if not already done (stop here) Pneumococcal Assessment Assessment of Age/Risk Factors: Immunosuppressive conditions - history of chemotherapy/radiation Vaccine Status: Received a dose before age 65, LESS than 5 years ago (stop here) H1N1 Influenza Assessment Vaccine Status: Vaccine received this season. Document in Immunization/injection activity if not already done (stop here) HEAD TO TOE ASSESSMENT Neurological Neuro Assessment: Sensation Sensation: Numb (below T5 level --paraplegic) EENT Head/Neck Assessment: No apparent abnormalities Eye Assessment: No apparent abnormalities Glasses and/or contacts?: Glasses - with patient Ear Assessment: No apparent abnormalities Nose Assessment: No apparent abnormalities Throat/Mouth Assessment: No apparent abnormalities Patient have special speech, hearing, or vision needs?: No special needs identified Respiratory Respiratory Assessment: No apparent abnormalities Cough?: No Sputum?: No Respiratory Needs Likely at Discharge?: No Cardiovascular Cardiovascular Assessment: No apparent abnormalities (planned angiogram.) Gastrointestinal/Nutrition Date of Last Bowel Movement: 04/04/10 GI/Nutritional Assessment: No apparent abnormalities (bowel program, stool softner and minienema) Diet History: Regular diet Diet History Additional Information: (not recorded) Nutrition Consult Screening: No GI/nutrition screening criteria applicable Genitourinary Assessment: (self cath program) Arnol Scale Sensory Perception: 3 Moisture Exposure: 4 Activity: 1 Mobility: 3 Nutrition: 4 Friction/Shear: 2 Arnol Score: 17 Integumentary Integumentary Assessment: Skin intact;No apparent abnormalities Integumentary Assessment Additional Information: paraplegic from T-5. Musculoskeletal Musculoskeletal Assessment: Equipment;Other (see comments) Equipment Assessment: Wheelchair MD notified of potential rehab or PT/OT needs due to mobility?: Not applicable PAIN Patient Experiencing Pain?: Patient denies having pain Site 2?: No Site 3?: No FUNCTIONAL Recent changes in level of ADLs?: No Eating - Current Level of Assist: Independent Activity - Current Level of Assist: Assistance required Elimination - Current Level of Assist: Assistance required Hygiene - Current Level of Assist: Assistance required Functional Screening: Anticipate functional status will change/improve, will continue to assess andmake appropriate referrals/interventions PSYCHOSOCIAL/SPIRITUAL/HOAHAOISM/CULTURAL/ABUSE/CHEMICAL Suicide Health Inventory Do you currently have or recently had thoughts of harming or killing yourself?: No For nursing interventions, see policy: PC:12:10 History Alcohol Use No History Drug Use No Mental Health Assessment: No apparent abnormalities 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 Lives: With spouse;Other (see comments) (2 children in home) Living Situation: Home Social Screening: No discharge [...] 0 Cognition: 0 Elimination: 0 Physical Mobility: 4 Lines & Tubes: 1 Medications (CV or POLICE CHIEF DEPUTY): 3 Falls Risk Score: (0-4 Low) (5-10 Moderate) [...] Rate Site atorvastatin (aka LIPITOR) tablet Given 04/05/2010 8:00 PM CDT 4 0 mg 40 mg 40 mg, Oral, DAILY - 1999, First dose on Sat04/05/10 at 2000, Until Discontinued baclofen (aka LIORESAL) tablet 20 mg Given 04/06/2010 3:45 AM CDT 20 mg 20 mg, Oral, BID, First dose on Sat04/06/10 at 0400, Until Discontinued citalopram (aka CELEXA) tablet 40 mg Given 04/06/2010 7:55 AM CDT 40 mg 40 mg, Oral, DAILY, First dose on Sat04/05/10 at 1900, Until Discontinued cyclobenzaprine (aka FLEXERIL) tablet 10 mg Given 04/06/2010 7:55 AM CDT 10 mg 10 mg, Oral, BID, First dose on Sat04/05/10 at 2000, Until Discontinued Given 04/05/2010 8:00 PM CDT 10 mg enoxaparin (aka LOVENOX) injection 100 m g Given 04/06/2010 10:00 AM CDT 100 mg 100 mg, Subcutaneous, Q12H (NON-STND), First dose on Sat04/06/10 at 0925 FENTanyl (aka SUBLIMAZE) injection 25-10 0 mcg Given 04/05/2010 4:06 PM CDT 25 mcg 25-100 mcg, Intravenous, PRN WITH PROCEDURES, Sedation, Starting on Sat04/05/10 at 1555, Until Sat04/06/10 at 1328, For use only during Interventional Radiology procedure Given 04/05/2010 4:03 PM CDT 25 mcg Given 04/05/2010 4:00 PM CDT 25 mcg furosemide (aka LASIX) tablet 80 mg Given 04/06/2010 7:55 AM CDT 80 mg 80 mg, Oral, DAILY, First dose on Sat04/05/10 at 1900, Until Discontinued gabapentin (aka NEURONTIN) capsule 200 m g Given 04/06/2010 7:55 AM CDT 200 mg 200 mg, Oral, TID, First dose on Sat04/05/10 at 2000, Until Discontinued Given 04/05/2010 8:00 PM CDT 200 mg hydrocodone-acetaminophen (aka Given 04/06/2010 7:55 AM CDT 2 Ta blets VICODIN,LORTAB) 5-500 MG tablet 1-2 Tab 1-2 Tablet, Oral, Q4H PRN, Pain, Starting on Sat04/05/10 at 1218, Use after METAL DRILL OPERATOR completed. Maximum Daily Acetaminophen dose for patients >53 kg/day. Maximum Daily Acetaminophen dose for patients < 53k mg/kg/day. This product contains 500mg Acetaminophen per tablet. hydrocortisone 1 % cream Given 04/06/2010 5:16 AM CDT Topical, TID PRN, Itching, Starting on Sat04/06/10 at 0318, Apply topically to affected areas Hazardous waste, dispose of in Black Box. lactated ringers infusion 1,000 mL Given 04/05/2010 8:26 AM CDT 1,000 mL 30 mL/hr 1,000 mL, Intravenous, at 30 mL/hr, PACU, Starting on Sat04/05/10 at 0810, Continuous LORazepam (aka ATIVAN) tablet 0.5 mg Given 04/06/2010 7:55 AM CDT 0.5 mg 0.5 mg, Oral, TID, First dose on Sat04/05/10 at 2000, Until Discontinued Given 04/05/2010 11:49 PM CDT 0.5 mg metoPROLOL tartrate (aka LOPRESSOR) tablet 50 Given 7:55 AM CDT 50 mg mg 50 mg, Oral, BID, First dose on Sat04/05/10 at 2000, Until Discontinued, Take with food Given 04/05/2010 8:00 PM CDT 50 mg midazolam (aka VERSED) injection 0.5-1.5 mg Given 04/05/2010 4:29 PM CDT 0.5 mg 0.5-1.5 mg, Intravenous, PRN WITH PROCEDURES, Procedure, Starting on Sat04/05/10 at 1554, For use during Interventional Radiology procedure only Given 04/05/2010 4:06 PM CDT 0.5 mg Given 04/05/2010 4:03 PM CDT 0.5 mg midazolam (aka VERSED) oral liquid 5 mg Given 04/05/2010 1:14 PM CDT 5 mg 5 mg, Oral, NOW, On Sat04/05/10 at 1314, For 1 dose, Give prior to mri potassium chloride (aka K-DUR,KLOR-CON M) Given 04/06/2010 7:55 AM CDT 20 mEq extended release tablet 20 mEq 20 mEq, Oral, QID, First dose on Sat04/05/10 at 1999 Given 04/05/2010 8:00 PM CDT 20 mEq trimethoprim (aka TRIMPEX) tablet 100 mg Given 04/06/2010 7:55 AM CDT 100 mg 100 mg, Oral, DAILY, First dose on Sat04/05/10 at 1900 documented in this encounter Active and Recently Administered Medications Times are shown in CDT. Scheduled Medication Order 04/04/2010 04/05/2010 04/06/2010 atorvastatin (aka LIPITOR) tablet 40 mg (CANCELED) 1999 (Given - Provider: Radha Casper) 40 mg, Oral, STATIN - 1999, First dose o n Sat04/05/10 at 2000, Until Discontinued baclofen (aka LIORESAL) tablet 20 mg (CANCELED) 034 (Given - Provider: Radha Casper) 20 mg, Oral, BID, First dose on Sat04/06/10 at 0400, Until Disco ntinued citalopram (aka CELEXA) tablet 40 mg (CANCELED) 1899 (Refused - Provider: Radha Casper - Comment: took dose this am) 0755 (Given - Provider: Linda Zuniga) 40 mg, Oral, DAILY, First dose on Sat04/05/10 at 1900, Until Dis continued cyclobenzaprine (aka FLEXERIL) tablet 10 mg (CANCELED) 1999 (Given - Provider: Radha Casper) 0755 (Given - Provider: Linda Zuniga) 10 mg, Oral, BID, First dose on Sat04/05/10 at 1999, Until Disco ntinued enoxaparin (aka LOVENOX) injection 100 mg (CANCELED) 1000 (Given - Provider: Linda Zuniga) 100 mg, SC, Q12H (NON-STND), First dose on [place] 04/06/10 at 0925, Until Discontinued furosemide (aka LASIX) tablet 80 mg (CANCELED) 1899 (Refused - Provider: Radha Casper - Comment: pt takes this on a prn basis) 0755 (Given - Provider: Linda Zuniga) 80 mg, Oral, DAILY, First dose on Sat04/05/10 at 1900, Until Dis continued gabapentin (aka NEURONTIN) capsule 200 mg (CANCELED) 1999 (Given - Provider: Radah Casper) 0755 (Given - Provider: Linda Zuniga) 200 mg, Oral, TID, First dose on Sat04/05/10 at 1999, Until Disc ontinued lactated ringers infusion 1,000 mL (CANCELED) 825 (Given - Provider: Alejandra Madera RN) 1,000 mL, IV, PACU, Until Discontinued LORazepam (aka ATIVAN) tablet 0.5 mg (CANCELED) 2348 (Given - Provider: Radha Casper) 0755 (Given - Provider: Linda Zuniga) 0.5 mg, Oral, TID, First dose on Sat04/05/10 at 1999, Until Disc ontinued metoPROLOL tartrate (aka LOPRESSOR) tablet 50 mg (CANCELED) 1999 (Given - Provider: Radha Casper) 0755 (Given - Provider: Linda Zuniga) 50 mg, Oral, BID, First dose on Sat04/05/10 at 2000, Until Disco ntinued midazolam (aka VERSED) oral liquid 5 mg (COMPLETED) 1314 (Given - Provider: Jennifer Samaniego) 5 mg, Oral, NOW, 1 dose, Sat04/05/10 at 1314 mupirocin (aka BACTROBAN) 2 % ointment 0.5 Inch 1999 (Not Given - Provider: Radha Casper - Reason: Other (Enter Reason in Comment Area) - Comment: does not start until 3 days b/4 surg) 0800 (Held - Provider: Linda Zuniga - Co mment: Not 3 days before surgery yet. Tube given to patient) Topical, BID, First dose on Sat04/05/10 at 0947, Until Discontin ued potassium chloride (aka K-DUR,KLOR-CON M ) extended release tablet 20 mEq (CANCELED) 1999 (Given - Provider: Radha Pascual n) 0755 (Given - Provider: Linda Zuniga) 20 mEq, Oral, QID, First dose on Sat04/05/10 at 1999, Until Disc ontinued trimethoprim (aka TRIMPEX) tablet 100 mg (CANCELED) 1999 (Refused - Provider: Radha Casper - Comment: took this am) 0755 (Given - Provider: Linda Zuniga) 100 mg, Oral, DAILY, First dose on Sat04/05/10 at 1900, Until Di scontinued PRN Medication Order 04/04/2010 04/05/2010 04/06/2010 FENTanyl (aka SUBLIMAZE) injection 25-100 mcg (CANCELED) 1600 (Given - Provider: Augie Campbell, VALERIE)1603 (Given - Provider: Augie Campbell, VALERIE)1606 (Given - Provider: Augie Campbell, VALERIE)1705 (Given during Procedure - Provider: Royer Garcia) 25-100 mcg, IV, PRN WITH PROCEDURES, Sta rting Sat04/05/10 at 1555, Until Discontinued, Sedation 1713 (Given during Procedure - Provider: Royer Garcia)1742 (Given during Procedure - Provider: Royer Garcia) hydrocodone-acetaminophen (aka VICODIN,L ORTAB) 5-500 MG tablet 1-2 Tab (CANCELED) 0755 (Given - Provid er: Linda Zuniga) 1-2 Tab, Oral, Q4H PRN, Starting Sat04/05/10 at 1218, Until Discontinued, Pain hydrocortisone 1 % cream (CANCELED) 0516 (Given - Provider: Radha Casper) Topical, TID PRN, Starting [place] 04/06/10 at 0318, Until Discontinu ed, Itching midazolam (aka VERSED) injection 0.5-1.5 mg (CANCELED) 1600 (Given - Provider: Augie Campbell, VALERIE)1603 (Given - Provider: Augie Campbell, VALERIE)1606 (Given - Provider: Augie Campbell, VALERIE)1629 (Given - Provider: Augie Campbell, VALERIE)1713 (Given during Procedure - Provider: Royer Garcia) 0.5-1.5 mg, IV, PRN WITH PROCEDURES, Sta rting Sat04/05/10 at 1554, Until Discontinued, Procedure 1742 (Given during Procedure - Provider: Royer Garcia) documented in this encounter Care Teams Decorator Consultant Relationship Specialty Start Date End Date Unassigned, Provider PCP - General 11/28/01 05/21/[address] [place] [id number] documented as of this encounter
--- OUTSIDE RECORDS SUMMARY | 2022-06-20 02:37 | XMS_ITS | Encounter Summary ---
:1945 Author [facility] Address [address] [place] [address] Care Team Providers Name Role Phone Unassigned, Provider Primary Care Provider Unavailable Encounter Details Date Type Department Care Team Description 04/11/2010 [facility] [address] [place], [place] [id number] Social History Tobacco Use Types Packs/Day Years [...] Comme nts XR PORTABLE CHEST 1 STAT 04/11/2010 9:03 PM Re sults for this VIEW CDT procedure are i n the results section. documented in this encounter Results XR PORTABLE CHEST 1 VIEW (04/11/2010 9:03 [...] m edial pneumonitis not excluded. Followup recommended. Garry Neff MD RAD PORTABLE documented in this encounter Visit Diagnoses Not on filedocumented in this encounter Care Teams Timber Management Assistant Relationship Specialty Start Date End Date Unassigned, Provider PCP - General 11/28/01 05/21/[address] [place] [id number] documented as of this encounter
--- OUTSIDE RECORDS SUMMARY | 2022-06-20 02:37 | XMS_ITS | Encounter Summary ---
:1945 Author Organization [facility] Address [address], [place] [address] Care Team Providers Name Role Phone Unassigned, Provider Primary Care Provider Unavailable Encounter Details Date Type Department Care Team Description 04/11/2010 Surgery RH Operating Room Maurice Baron, FUSION APPROACH (STAND 640 Александр Duarte MD ALONE) THORACIC AND/[place] [address] LUMBAR POSTERIOR [phone] [place], [place] [address] (Wo rk) Social History Tobacco Use Types Packs/Day Years Used Date Smoking Tobacco: Never Alcohol Use Standard Drinks/Week Comments No 0 (1 standard drink = 0.6 oz pure alcoho l) Sex Assigned at Date Recorded Male 08/06/2021 5:59 PM CDT documented as of this encounter Last Filed Vital Signs Vital Sign Reading Time Taken Comments Blood Pressure 152/104 04/11/2010 11:53 AM CDT Pulse 76 04/11/2010 11:53 AM CDT Temperature 35.6 ??C (96 ??F) 04/11/2010 11:53 AM CDT Respiratory Rate 16 04/11/2010 11:53 AM CDT Oxygen Saturation 100% 04/11/2010 11:53 AM CDT Inhaled Oxygen Concentration - - Weight 104.3 kg (230 lb) 04/11/2010 11:53 AM CDT Height 177.8 cm (5' 10) 04/11/2010 11:53 AM CDT Body Mass Index 33 04/11/2010 11:53 AM CDT documented in this encounter Discharge Summaries Lucy Parker - 04/12/2010 12:22 PM CDT Neurosurgery Discharge [...] Discharge medications: 1. see epic list, resume HEEL SANDER medications as directed 2. Percocet 1-2 tabs [...] in Dr Baron clinic as scheduled at [address] [place] [address]. Patient also instructed [facility] clinic or hospital for any questions or concerns. Patient verbalizes understanding and states no further questions at this time. Scripts on chart Lucy Parker PA-C documented in this encounter Discharge Instructions Discharge InstructionsBernard Alcantar - 04/20/2010 11:20 AM CDT Images from the original note were not included. [address] [place] [address] Discharge Instructions for: Jie Cullen Thank you for choosing [facility] as your hospital. A copy of your discharge instructions has been given to you. Please read the instructions carefully. The staff will go over this information with you and answer your questions. General Information Allergies: Review of patient's allergies indicates no known allergies. Phone number: Telephone Information: Discharging physician: Tawanda 04/20/10 Discharge date: 04/20/10 Primary Care Provider [...] additional information about your medications, visit this [employer] website, [email or web address]. Current Discharge Medication List START taking these [...] Neurosurgery clinic with any concerns or changes. [phone] Regular Diet Clinic Referral CLINIC: [facility]: Neurosurgery; [phone]; [address] [place] [id number] DOCTORS NAME: Dr. 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 Clinic Referral CLINIC: [facility] Neuro-Oncology Department DOCTORS NAME: available physician WHEN TO BE SEEN: In 2-3 weeks REASON FOR APPOINTMENT: discuss chemotherapy options for recurrent ependymomaContact information:Telephone number: Patient ID number: [id number] DISCHARGE INSTRUCTIONS TO PATIENT Your blood pressure [...] wound and fever greater than 101.5 degrees [facility] [place] [address] For questions about your discharge instructions call the nursing unit : [facility] [phone] Emergency & Urgently Needed Care: For emergencies call 911 and/or get medical help right away. If you are a [facility] member and have medical needs after clinic hours you may call the CareLineat [phone] or . All medical devices (telemetry/IV/etc) unless otherwise ordered, have been removed before discharge. Smoking and second-hand smoke exposure: Smoking damages blood vessels, reduces the oxygen in your blood and makes your heart beat too fast. If you smoke you should quit. Everyone should avoid second- hand smoke. If you would like further assistance after your discharge, please contact [phone] or visit [email or web address] and [employer] can offer further [...] understand my discharge instructions: Jie Cullen (or [employer] Partnership Rep) documented in this encounter Medications at Time [...] Elaine Brown - 04/20/2010 12:[address] [facility] Care Management Discharge Note Admission Date/Time: 04/11/2010 11:22 AM Attending MD: Maurice Baron Discharge Plan: Anticipated Discharge Date: 04/20/2010 Anticipated Discharge Time: 1 pm Patient to be discharged: to Home. Patient to be accompanied by: spouse. Transportation arranged for discharge: family Patient/Family aware of transportation benefit. Discharge equipment needs and arrangements: family requests medical records be sent to pcp in [place]. I obtained the release of information form to be done and info to be sent to Dr. Loretta Mcmahan MD Followup: no further needs Discharge Disposition Code: 01: Discharged to home or self-care (routine discharge) Report completed by Elaine Brown RN, Pager Number [phone] --- End of Report --- Criselda Rodriguez - 04/20/2010 12:09 PM CDT [facility] Medicine Progress Note Date of service: 04/20/2010 [...] PMD for further management (Dr. Meadows at [facility]). Acute blood loss anemia. No hx of [...] patient for above problems Criselda Rodriguez PA-C [facility] Medicine [phone] 04/20/2010 Trudi Locke - 04/20/2010 8:[address] [facility] [place] Physical Therapy Missed Visit Physical Therapy attempted [...] Loretta Osman - 04/20/2010 6:15 AM CDT [facility] Progress Note (Nursing) Identify/Problem(s): GI fuction Desired Outcome(s): Pt will have return of GI function. Evaluation: Pt had large amounts of incont. liquid stool during the night. Abd remains round but less firm. Pt denies pain. VSS Plan: Discuss plan of care with pt and family. Loretta Osman RN --- End of Report --- Malika Maradiaga RN - 04/19/2010 11:23 PM CDT [facility] Progress Note (Nursing) Identify/Problem(s): Constipation, skin integrity [...] Criselda Rodriguez - 04/19/2010 4:32 PM CDT [facility] Medicine Progress Note Date of service: 04/19/2010 [...] patient for above problems Criselda Rodriguez PA-C [facility] Medicine [phone] 04/19/2010 Bernard Alcantar - 04/19/2010 4:08 PM CDT [facility] Progress Note (Nursing) Identify/Problem(s): Skin Desired Outcome(s): [...] Veronica Christian - 04/19/2010 3:[address] [facility] Care Management Social Work Follow Up Note Admission Date/Time: 04/11/2010 11:22 AM Attending MD: Maurice Baron Data Chart reviewed; discussed with interdisciplinary team. Met throughout the day with patient, . Discussed case with RAND Lyman, Dr. Flores PM&R, RN. Planning for patient to have baclafin pump refilled with Dr. Hooper at [facility] in [place], probably tomorrow at 13:00. Planning to have in-home therapy with Greg PT, whom patient is familiar with. (# [phone]) (fax# [phone]). Orders faxed. First appt is Saturday at 14:00. Cancelled referral to [facility]. Patient will get INRs drawn at his [...] and communication. Has w/c van here in [place] now, and will take patient home tonight if medically stable, else go home tomorrow. Updated Plan of Care Anticipated Discharge Date: today or tomorrow Anticipated Discharge Plan: Home with home PT Plan for Follow Up: Will follow for any further d/c needs if still here tomorrow. Report completed by Veronica Christian [facility], Pager Number [phone] (W, TH, F) --- End of Report --- Veronica Christian - 04/19/2010 2:54 PM CDT [facility] Transfer Orders to Home Health Care [...] Neurosurgery clinic with any concerns or changes. [phone] Regular Diet Clinic Referral Order Comments: CLINIC: [facility]: Neurosurgery; [phone]; [address] [place] [address] DOCTORS NAME: Dr. Baron WHEN TO BE SEEN: On (date) April 27 at 10:20 REASON FOR APPOINTMENT: MD follow up Physical Therapy (PT) Referral Order Comments: EVALUATE AND TREAT Occupational Therapy (OT) Referral Order Comments: EVALUATE AND TREAT Discharge Diagnosis Order Comments: S/p resection of thoracic spine ependymoma Clinic Referral Order Comments: CLINIC: [facility] Neuro-Oncology Department DOCTORS NAME: available physician WHEN [...] have been electronically signed. (In accordance with [place] [employer]. Regulation Set, Fed A0232 - Types [...] in ependymoma. Given where he lives, the [facility] is his best option. I spoke with the [facility] Neuro Oncology clinic this morning; unfortunately I was never able to talk directly to their on-call physician Dr. Alex. They would be happy to see Mr. 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 I gave his the following contact information to schedule an appointment when she feels sheis able to get him to [place]: [facility] Oncology [facility] Pt ID# [id number] I have added this information to his discharge orders and have asked the Marketing Information Analyst to aide ingetting patient a copy of his medical records and a CD of the imaging performed here to take with him. Hematology/Oncology will sign off now. If there are any further questions, please contact the on-call Hematology/Oncology fellow. Patient and plan discussed with Dr. Henry. Abby Ellsworth - 04/19/2010 11:[address] [facility] Occupational Therapy Missed Visit Treatment attempted today. Unable to start treatment due to: Spoke with pt and about further concerns. No further concernsneeded or questions. Possible d/c to home today with assistance from spouse. Agree with this. Will attempt treatment again if plan of care changes. . [facility]Kateryna (pager) OT Dept #: [phone] - OT Weekend Pager #: [phone] - [facility] Main #: [phone] --- End of Report --- Trudi Locke - 04/19/2010 9:29 AM CDT [facility] Physical Therapy Progress Note PT Visit Room/Bed: [id number] Patient Seen: bedside Diagnosis: Encounter Diagnoses Code [...] 344.1 Paraplegia ??? 707.00F Pressure Ulcer ??? 07714 CAREPLAN: BACLOFEN Pain: not bad per pt [...] minutes Trudi Locke PT Phone number is [phone] Pager: [phone] --- End of Report --- Weatherization And Housing Inspector, Lucy Clemente - 04/19/2010 9:[address] [facility] NeuroSurgery Progress Note Pt doing well [...] Durand RN - 04/19/2010 7:22 AM CDT [facility] Progress Note (Nursing) Identify/Problem(s): Skin Integrity Desired Outcome(s): Patient's skin integrity will be kept to the optimal level. Evaluation: Patient is asleep most of the night. Turned to sides. Coccyx area is reddened but no blisters noted.De La Cruz catheter draining well with clear yellow urine. Denies pain. Plan: Will continue to monitor patient's skin integrity. Discussed plan of care with patient. Lisy Durand RN --- End of Report --- AT Lisy Durand RN - 04/19/2010 6:07 AM CDT Problem: Falls Risk Goal: Moderate Risk (5-10): Fall Prevention I applied all active moderate risk falls prevention interventions. Malika Maradiaga RN - 04/18/2010 10:28 PM CDT [facility] Progress Note (Nursing) Identify/Problem(s): Activity, skin integrity Desired Outcome(s): Pt will have increased activity and optimal skin integrity. Evaluation: Pt dangled at edge of bed x 2 this evening. Pt able to hold self up. Pt also transfered from bed to WC to toilet with slide board and assist of 3. Pt transfers much improved compared to Sun 6/ PM shift. Pt turned and repositioned every [...] Martha Thomas - 04/18/2010 6:[address] [facility] PM&R Progress Note () Date of [...] 106 131/81 mmHg 16 95 % RA 06/06/10 2000 - - 98 ??F (36.7 ??C) Oral [...] Bernard Alcantar - 04/18/2010 2:37 PM CDT [facility] Progress Note (Nursing) Identify/Problem(s): Activity Desired [...] Trudi Locke - 04/18/2010 1:[address] [facility] IP Physical Therapy Progress Note PT Visit Room/Bed: [id number] Patient Seen: bedside Diagnosis: Encounter Diagnoses Code [...] minutes Trudi Locke PT Phone number is [phone] Pager: [phone] --- End of Report --- Weatherization And Housing Inspector, Lucy Clemente - 04/18/2010 1:21 PM CDT [...] Tania Brantley - 04/18/2010 1:10 PM CDT [facility] Care Management Stationary Boiler Fireman Follow Up Note Admission Date/Time: 04/11/2010 11:22 [...] would like pt's name on list at [facility] (ph: [phone], fx: [phone])in [place]. I made referral to this facility and spoke with admission coordinator, Mer Simpson. She did not receive initial fax that was sent over via [employer], so I manually faxed paperwork to her [...] completed by Tania Brantley RN, Pager Number [phone] --- End of Report --- Tania Brantley - 04/18/2010 1:10 PM CDT [facility] Care Management Stationary Boiler Fireman Follow Up Note Admission Date/Time: 04/11/2010 11:22 [...] would like pt's name on list at [facility] (ph: [phone], fx: [phone])in [place]. I made referral to this facility and spoke with admission coordinator, Mer Simpson. She did not receive initial fax that was sent over via [employer], so I manually faxed paperwork to her [...] states pt and are now considering home with[facility]ale [facility] care. I spoke to pt and the other day re: hc and they have no agency preference. I made a referral to [facility] ph: [phone] Fx: [phone]. Spoke with [place] in intake. Informed her pt may go to tcu but likely home care. Requested a visit for day after discharge. They can provide PT and SNV for incision check, skin assessment, vs, and inr draws. [place] will need call in am to confirm whether pt needs home care or not. Also received call back from Mer at [facility]. They have accepted pt for admission and [...] up with primary rehab MD, Dr. Hooper ([place]) vs having her possibly do it on day of dc. Have not had a chance to discuss this with . Will try to have conversation in am. Updated Plan of Care Anticipated Discharge Date: 04/19/10 Anticipated Discharge Plan: tcu likely Plan for Follow Up: in am Report completed by Tania Brantley RN, Pager Number [phone] --- End of Report --- Abby Ellsworth - 04/18/2010 12:01 PM CDT [facility] Occupational Therapy Progress Note Treatment Summary: [...] Abby Ellsworth OTR/L (pager) OT Dept #: [phone] - OT Weekend Pager #: [phone] - [facility] [place] Main #: [phone] Addendum: issued pt a yellow theraband for pt to use in room and tubi steam and gas turbine assembler for w/c brakes. --- End of Report --- Criselda Rodriguez - 04/18/2010 10:18 AM CDT [facility] Progress Note Date of service: 04/18/2010 [...] patient for above problems Criselda Rodriguez PA-C [facility] [phone] 04/18/2010 Radha Long - 04/18/2010 4:24 AM CDT [facility] Progress Note (Nursing) Identify/Problem(s): Activity Pain Skin [...] Devon Hylton - 04/17/2010 10:30 PM CDT [facility] Progress Note (Nursing) Identify/Problem(s): Pain/skin status [...] monitor comfort and monitor skin status. Devon Hylton,RN --- End of Report --- Romelia Kohli - 04/17/2010 4:42 PM CDT [facility] Progress Note (Nursing) Identify/Problem(s): Activity Neuro Status [...] tolerated monitor for signs of disorientation Romelia Kohli, VALERIE --- End of Report --- Romelia Kohli - 04/17/2010 3:21 PM CDT Problem: Falls Risk Goal: Moderate Risk (5-10): Fall Prevention I applied all active moderate risk falls prevention interventions. Tania Brantley - 04/17/2010 2:05 PM CDT [facility] Care Management Stationary Boiler Fireman Initial Assessment Admission Date/Time: 04/11/2010 11:22 AM Attending MD: Maurice Baron Data Jie Cullen was referred to this Stationary Boiler Fireman for discharge planning. Chart reviewed, discussed with interdisciplinary team, as well as with patient and family. Jie Cullen was admittedto S10 for Malignant Neoplasm of Brain, Unspecified Site [191.9] (MALIG GANGA BRAIN NOS). Insurance: Payor: MEDICARE PART B ONLY [id number] Plan: MEDICARE PART B ONLY Product Type: Medicare Current Living Situation: Patient lives with their spouse. Support System: and children Services Involved: none, has been to [facility] in past Additional Data: Pt's primary MD is Dr. Loretta Mcmahan at the [facility] Coordination of Care and Referrals: Provided [...] both really want pt to return home atmd. They feel just from yesterday, pt has [...] completed by Tania Brantley RN, Pager Number [phone] --- End of Report --- Trudi Locke - 04/17/2010 1:23 PM CDT [facility] IP Physical Therapy Progress Note PT Visit Room/Bed: 61275/[id number] Patient Seen: bedside Diagnosis: Encounter Diagnoses Code [...] minutes. Trudi Locke, PT Phone number is [phone] Pager: [phone] --- End of Report --- Abby Ellsworth - 04/17/2010 11:54 AM CDT [facility] Occupational Therapy Progress Note Treatment Summary: The [...] spent in patient contact: 30 minutes - vanessa Ellsworth OTR/L (pager) OT Dept #: [phone] - OT Weekend Pager #: [phone] - [facility] Main #: [phone] --- End of Report --- Criselda Rodriguez - 04/17/2010 11:45 AM CDT [facility] Progress Note Date of service: 04/17/2010 [...] patient for above problems Criselda Rodriguez PA-C [facility] [phone] 04/17/2010 Weatherization And Housing Inspector, Lucy Clemente - 04/17/2010 11:21 AM CDT [facility] NeuroSurgery Progress Note Did discuss with . [...] TCU placement. Did speak with Tania, case work aide. INR not therapeutic, continue with Lovenox until INR 2-3 Repeat INR tomorrow No BM, try MOM or dulcolax suppository that are ordered Can also give prunes or prune juice Keep pt off buttocks for too long Hgb 9.0, but pt doing well no need for transfusion Lucy Parker PA-C --- End of Report --- Loretta Osman - 04/17/2010 7:54 AM CDT [facility] Progress Note (Nursing) Identify/Problem(s): Pain Desired Outcome(s): [...] Maradiaga RN - 04/16/2010 10:56 PM CDT [facility] Progress Note (Nursing) Identify/Problem(s): Neuro status [...] Anthony Genao - 04/16/2010 3:38 PM CDT [facility] Progress Note (MD) Date of service: [...] Report Completed by: Gena Genao MD Pager: [phone] Loretta Osman - 04/16/2010 7:01 AM CDT [facility] Progress Note (Nursing) Identify/Problem(s): Comfort Desired Outcome(s): Pt will be comfortable Evaluation: Pt did not request pain medication all night. Repositioned Q2 prn. Alert and oriented. VSS. No further episodes of confusion. Plan: Discuss plan of care. Loretta Osman RN --- End of Report --- Amanda Lindsay - 04/15/2010 7:49 PM CDT [facility] Progress Note (Nursing) Identify/Problem(s): Pain management. Skin [...] Lindsay RN --- End of Report --- manda Houston - 04/15/2010 7:46 PM CDT Problem: Falls Risk Goal: Moderate Risk (5-10): Fall Prevention I applied all active moderate risk falls prevention interventions. Amanda Lindsay - 04/15/2010 7:28 PM CDT [facility] MD Notified Note Name of MD notified: [...] Ayon, LARISA - 04/15/2010 12:41 PM CDT [facility] IP Physical Therapy Progress Note HEEL SANDER Visit Number 1 04/15/2010 Room/Bed: [id number] Patient Seen: bedside Diagnosis: Encounter Diagnoses Code [...] A of 3 and extra time. This marine underwriter left to work with another pt, [...] minutes Amira Ayon PTA Phone number is [phone] Pager: [phone] --- End of Report --- Esmer Richardson - 04/14/2010 10:19 PM CDT [facility] Progress Note (Nursing) Identify/Problem(s): Pain activity Desired Outcome(s): Pt will have adequate pain control Pt will have increased activity Evaluation: VSS, continues to be hypotensive and slightly tachy, tolerating reg diet, dangled at side of bed with assist of 2, Hvac Service Technician rep came to see pt and refit [...] Blue RN --- End of Report --- Yen Crum - 04/14/2010 4:55 PM CDT [facility] Complementary Care Therapy Note Complementary Care Therapy Massage?: yes Complementary Care Floor Location: [facility] Therapy explained and offered to patient/family: yes [...] s10. Prior to entering the room, this marine underwriter reviewed the patient's chart, and consulted with the patient's nurse. Upon entering the room, this marine underwriter introduced herself, explained massage therapy, and [...] Massage ends when brace man arrives. This marine underwriter informs RN of pt's report that R arm is falling asleep. Plan Complementary Care Therapies are available to this patient while an inpatient, as schedule allows. Thank you for referring this patient to Complementary Care Therapies. Report Completed by: SIMON Garcia --- End of Report --- Tania Brantley - 04/14/2010 4:06 PM CDT [facility] Stationary Boiler Fireman Progress Note Data: Attempted to meet with pt this afternoon. Pt had eyes open when I was introducing myself to him. Asked pt if it was okay to speak with him. He did not say anything and closed his eyes. He is unable to engage in conversation. I did inform bedside RN, Esmer of this. I also attempted to phone pt's . I had to leave a vm as I did yesterday. Have not received a call back. Missed earlier. PA in with pt and early afternoon, when I returned had already left. Assessment: In reviewing chart this afternoon, PT and OT state pt may require tcu at [place] for continued rehab as at present he is requiring max assist of two with moving in bed and transfers. This is not at pt's baseline. When I left with pt's and did mention tcu. In vm that I left with her, I asked that she ask to speak with weekend CM to discuss possible tcu and facilities, should she be here over weekend. Otherwise I will try to meet with pt and Saturday am. Plan: Pt will not be discharging over the weekend. Pt may need tcu at md. Need to discuss with pt and , have not been able to reach and pt too sedated for conversation at this time. Follow up on Saturday. Report completed by Tania Brantley RN, Pager Number [phone] --- End of Report --- Carlene Silver RN - 04/14/2010 3:36 PM CDT Problem: Falls Risk Goal: Moderate Risk (5-10): Fall Prevention I applied all active moderate risk falls prevention interventions. AT Carlene Silver RN - 04/14/2010 3:00 PM CDT [facility] Progress Note (Nursing) Identify/Problem(s): Pain. Activity. Desired [...] Cecile Browne - 04/14/2010 1:34 PM CDT [facility] Progress Note Date of Service: 04/14/2010 [...] for further management with Ependymoma CORINA LeeC [facility] [phone] Total time spent was 35 mintues, >50% was in direct pt contact and C&C of the above issues. Trudi Locke - 04/14/2010 12:54 PM CDT [facility] IP Physical Therapy Progress Note PT Visit Room/Bed: [facility]/[id number] Patient Seen: bedside Diagnosis: Encounter Diagnoses Code [...] in R LE per pt report. This marine underwriter spoke with nursing who received clarification [...] co-treat with OT PM: 15 minutes Trudi Locke, PT Phone number is [phone] Pager: [phone] --- End of Report --- Abby Ellsworth - 04/14/2010 12:07 PM CDT [facility] Occupational Therapy Progress Note Treatment Summary: The [...] Abby Ellsworth OTR/L (pager) OT Dept #: [phone] - OT Weekend Pager #: [phone] - [facility] Main #: [phone] --- End of Report --- Archana Pace - 04/14/2010 11:20 AM CDT [facility] Surveyor Geodetic Department Progress Note Window Cutter Notes: Ongoing supportive visit with Heather this morning while Jeff was down in [place] and then also with Canelo his return. 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 Jeff appears to be much improved from my initial visit with them the day after his surgery. They continue to appreciate vocational services specialist presence, support and prayers as well as log chipper operator visits. Plan: Surveyor Geodetic remains available to pt and/or family for spiritual and emotional support as needed or requested. Report Completed by: Archana Pace, [facility] Staff Window Cutter --- End of Report --- Brittny Jasso - 04/14/2010 9:59 AM CDT [facility] NeuroSurgery Progress Note Date: 04/14/2010 Vitals Temp [...] Appreciate medicine team assistance with medical management. Brittny Lanza RN, am serving as a scribe to document services personally performed by Dr. Maurice Baron. All data has been reviewed by Dr. Maurice Baron. Brittny Jasso RN, ACNS-, CNRN Neuroscience Clinical Nurse Specialist [phone] --- End of Report --- Maurice Baron - 04/14/2010 9:59 AM CDT I have examined the patient and reviewed the plan of care and agree with the previous note. Maurice Baron MD 04/14/2010, 11:19 AM Halina Curry RN - 04/14/2010 4:42 AM CDT [facility] Progress Note (Nursing) Identify/Problem(s): Hypotensive and tachycardic Desired Outcome(s): Pt vitals will be stable for patient Evaluation: Pt BP is 105/64 and HR 115. Pt taken off Lasix and Vitals have been lower than this on previous shifts. Plan: Continue to monitor pt vitals. Discussed plan of care with patient. Halina Curry RN --- End of Report --- Halina Curry RN - 04/14/2010 2:34 AM CDT Problem: Falls Risk Goal: Moderate Risk (5-10): Fall Prevention I applied all active moderate risk falls prevention interventions. Esmer Richardson - 04/13/2010 10:37 PM CDT [facility] Progress Note (Nursing) Identify/Problem(s): Hypotension Tachycardic Desired [...] Silver RN - 04/13/2010 3:00 PM CDT [facility] Progress Note (Nursing) Identify/Problem(s): Pain. Desired [...] 89/51. ROXY Browne was text with result. [place] patent with high output and MD aware. PM nurse updated to F/U. Patient Vitals in the past 8 hrs: BP Temp Temp src Pulse Resp SpO2 Height Wt - Scale 04/13/10 1400 89/51 mmHg - - 107 - - - - 04/13/10 1154 85/52 mmHg - - - - - - - 04/13/10 1153 87/51 mmHg 98.1 ??F (36.7 ??C) Oral 112 18 96 % - - 04/13/10 0700 106/68 mmHg 98.2 ??F (36.8 ??C) Oral 114 18 99 % - - Plan: Will continue to assess and medicate as needed for pain. Carlene Silver, VALERIE --- End of Report --- Tania Brantley - 04/13/2010 2:01 PM CDT [facility] Care Management Missed Visit Admission Date/Time: 04/11/2010 [...] will likely be safe to return home. Stationary Boiler Fireman will attempt to follow up with patient/family in am vs later today. Report completed by Tania Brantley RN, Pager Number [phone] --- End of Report --- Trudi Locke - 04/13/2010 1:35 PM CDT [facility] IP Physical Therapy Progress Note PT Visit Room/Bed: 35303/7543911 Patient Seen: bedside Diagnosis: Encounter Diagnoses Code [...] minutes Trudi Locke PT Phone number is [phone] Pager: [phone] --- End of Report --- Brittny Jasso - 04/13/2010 11:52 AM CDT [facility] NeuroSurgery Elective Spine Progress Note Date: 04/13/2010 [...] and platelets in 2-3 days. I, Brittny Goring, RN, am serving as a scribe to document services personally performed by Dr. Maurice Baron. All data has been reviewed by Dr. Maurice Baron. Brittny Jasso RN, ACNS-, CNRN Neuroscience Clinical Nurse Specialist [phone] --- End of Report --- Maurice Baron - 04/13/2010 11:52 AM CDT I have examined the patient and reviewed the plan of care and agree with the previous note. Maurice Baron MD 04/14/2010, 11:19 AM Martha Thomas - 04/13/2010 10:03 AM CDT [facility] PM&R Progress Note () Date of service: [...] Last change on 04/13/2010 Pump serial number: [id number] Infusion drug: Baclofen Concentration: 1,000 mcg/ml Infusion mode: simple continuous Dose per day: increased by 10% to 249.8 mcg/day [place] volume 4.4 ml Low reservoir alarm volume [...] Radha Long - 04/13/2010 6:27 AM CDT [facility] Progress Note (Nursing) Identify/Problem(s): Low blood [...] Radha Long - 04/13/2010 2:58 AM CDT [facility] MD Notified Note Name of MD notified: Mandy Watson Time of MD notification: 0200 hours and 15 minutes Reason: Blood pressure is 88/44, hr 118 , needs more for shoulder pain Response: Give bolus of ns, check hgb, ordered tylenol, call back if bolus does not improve vs. Radha Long RN --- End of Report --- Esmer Richardson - 04/12/2010 10:48 PM CDT [facility] Progress Note (Nursing) Identify/Problem(s): pain Desired Outcome(s): [...] Ephraim Cai - 04/12/2010 2:53 PM CDT [facility] Progress Note (Nursing) Identify/Problem(s): Pain control,finger numbness,shoulder stiffness Desired Outcome(s): Pain will be controlled with Morphine and shoulders and fingers will improve Evaluation: Left and right fingers numb,shoulder stiffness improved with massage,Dr aware of numbness and will evaluate later,additional dose of Morphine 4mg IV given/,,arms placed in multiple positions with some minimal relief Plan: Pain control will improve and numbness will be followed Ephraim Cai RN --- End of Report --- Johan Montenegro - 04/12/2010 2:36 PM CDT HOSPITAL MONITOR CAR OPERATOR NOTE - The patient received the Sacrament of the Sick (anointing) today. SHANNON Bolanos Archana Pace - 04/12/2010 2:35 PM CDT [facility] Surveyor Geodetic Department Progress Note Reason for Visit Initial assessment for spiritual and emotional support needs for pt/family during this hospitalization. Pt is post-op day 1 from spine surgery. He is experiencing some pain this afternoon which RN is working on getting under control. Pt has had multiple surgeries for the same issue. Patient/Family Pt/ live in [place], [place]. stayed at the hospital but may go home this evening. Other visitors have been in/out to see pt. Resources/Support System Family, friends and lucia community provide a strong foundation for Jeff. Spiritual/Druze Jeff is appreciative of prayers, they have notified their [place] log chipper operator and pt would like to receivethe sacrament of the sick. Interventions Offered I offered supportive listening, presence, prayers for healing/strength, contacted the [facility] log chipper operator for the sacrament of the sick, informed pt/family of ongoing vocational services specialist availability. Coping Jeff is focused on his pain at this time so assessment is limited. Pt/family appear to be coping appropriately at this time; they have extensive experience from previous surgeries. Plan Surveyor Geodetic will continue following for ongoing spiritual and emotional support to pt/family. Report completed by: Archana Pace, [facility] Staff Window Cutter --- End of Report --- Britni Barfield - 04/12/2010 12:19 PM CDT Problem: Falls Risk Goal: Low Risk (0-4): Fall Prevention I applied all active low risk falls prevention interventions. Abby Ellsworth - 04/12/2010 11:22 AM CDT [facility] Occupational Therapy Missed Visit Evaluation attempted today. Unable to start evaluation due to: pt just extubated and on flat bedrest. Will attempt evaluation again as soon as possible. Abby Ellsworth OTR/L (pager) OT Dept #: [phone] - OT Weekend Pager #: [phone] - [facility] Main #: [phone] --- End of Report --- Trudi Locke - 04/12/2010 11:15 AM CDT [facility] Physical Therapy Missed Visit Physical Therapy attempted to see patient today, 04/12/2010, for evaluation. Unable to see patient forthis reason: Pt just extubated and on flat bedrest at all times. Will attempt again tomorrow. Trudi Locke, PT [phone] --- End of Report --- Trudi Locke - 04/12/2010 9:36 AM CDT [facility] Physical Therapy Missed Visit Physical Therapy attempted to see patient today, 04/12/2010, for evaluation. Unable to see patient forthis reason: test. Will attempt again as soon as possible. Trudi Locke, PT [phone] --- End of Report --- Lucy Parker - 04/12/2010 8:30 AM CDT [facility] NeuroSurgery Progress Note Vitals Temp (24hrs), Min:96 [...] Carolyn Wells - 04/12/2010 7:32 AM CDT [facility] SICU Critical Care Progress Note Date: 04/12/2010 [...] Exam: Regular rate and rhythm without murmur Perinatal Tech: NSR Heart Rate (24hrs), Pulse Av Min: [...] Antibiotic(s): Trimethoprim - chronic med Vanco, day #12/13 Assessment/Plan: Vanco x 48 hours, per surgical [...] Blood drawing, Monitoring, IV access; Plan: Continue #2-[place] in Left, Radial; Day # 2; Indication: [...] Spenser Morocho - 04/12/2010 5:09 AM CDT [facility] Progress Note (Nursing) Identify/Problem(s): Respiratory status [...] RN --- End of Report --- Spenser Morocho - 04/11/2010 11:37 PM CDT Problem: Falls Risk Goal: Low Risk (0-4): Fall Prevention I applied all active low risk falls prevention interventions. Froilan Hardin - 04/11/2010 8:53 PM CDT [facility] Clinical Pharmacy Medication Reconciliation Note Medication History: [...] condition. PHARMACIST NAME: Froilan Hardin Phone/Pager #: [phone] --- End of Report --- Froilan Hardin - 04/11/2010 8:44 PM CDT [facility] Initial Kinetics Note Assessment: Jie Cullen, [id number], is a 64 yr year old male started on vancomycin 1g iv q 12h x 48h forpossible spinal infection pending intra-op culture results. Data: Last Height: 5' 10 (177.8 cm) Last Wt - Scale: 230 lb (104.327 kg) [place] Body Weight: 73 kg Dosing Weight: 85 [...] nsgy note). Froilan Hardin PharmD Pager Number: [phone] --- End of Report --- documented in this encounter Procedure Notes Maurice Baron X - 04/12/2010 9:21 AM CDT DATE OF SURGERY: 04/11/2010 STAFF SURGEON: Maurice Baron MD BLADDER CLEANER: Lucy Parker PA ANESTHESIA: General. ESTIMATED BLOOD [...] discovered at T4-T5. [facility]. Within [...] notedto be very prominent, creating a big duckwater where the wound was sitting, so with this we could flatten each border of the duckwater, which the patient achieved a much nicer [...] The patient was then returned to his gurney and taken stable, intubated, to the intensive care unit. The procedure was well-tolerated with no apparent complications. Needle and sponge counts correct and verified at the end of the case. Estimated blood loss was approximately 100-150 mL. No drains were placed. Maurice Baron MD sko Dictated: 04/12/2010 09:21:50 Transcribed: 04/12/2010 09:41:51 Doc #: [id number] cc:Maurice Baron MD, Referring Provider Yris Brownlee MD DO NOT SIGN UNLESS PRESENT FOR PROCEDURE I attest that I was present for and participated in the lee portions of this procedure(s) in compliance with the Health Care Financing Administration Teaching Physician Guidelines. Signed Date [facility] Staff Physician 1 Page 2 Patient Name: JIE CULLEN INPATIENT OPERATIVE REPORT CONFIDENTIAL MEDICAL RECORD [address] [id number] Page 1 Patient: JIE CULLEN Location: 3 N: [id number] Admit Date: 04/11/2010 Date of : 1945 Discharge Date: Age: 64Y INPATIENT OPERATIVE REPORT Weatherization And Housing InspectorLucy - 04/11/2010 8:08 PM CDT [facility] Brief Operative Progress Note Surgery Date: 04/11/2010 [...] extubate when able Strict bedrest until further WOUND CARE CENTER CONSULTANT for pain control once extubate Will d/c [...] The procedure was medically necessary for an day care assistant because Dr. Baron needed the operative exposure and assistance that I provided. This allowed him to safely and efficiently operate. It was also important that I help ligate blood vessels to maintain hemostasis and reduce the bleeding risk. The assistance that I provided reduced operative time which meant less general anesthetic for the patient. Lucy Parker PA-C --- End of Report --- [facility] ANESTHESIA, PROVIDER - 04/11/2010 12:00 AM CDT [facility] ANESTHESIA, PROVIDER - 04/11/2010 12:00 AM CDT [facility] ANESTHESIA, PROVIDER - 04/11/2010 12:00 AM CDT [facility], PROVIDER - 04/11/2010 12:00 AM CDTAssociated Order(s): EKG IP; EKG IP [facility] ANESTHESIA, PROVIDER - 04/11/2010 12:00 AM CDT [facility] ANESTHESIA, PROVIDER - 04/11/2010 12:00 AM CDT [facility] ANESTHESIA, PROVIDER - 04/11/2010 12:00 AM CDT documented in this encounter Consult Notes Jessica Garcia - 04/18/2010 1:07 PM CDTAssociated Order(s): WOUND/ARTS AND HUMANITIES COUNCIL DIRECTOR CONSULT; WOUND/ARTS AND HUMANITIES COUNCIL DIRECTOR CONSULT [facility] Wound/Ostomy Progress Note Reason for Consultation: buttocks [...] Health History: reviewed and noncontributory to the [facility] Social Health History: no smoking, no [...] edema. I entered wound care orders in [facility]. Please contact the wound care service with any further questions or concerns. [phone]. Time spent with patient: 40 minutes with > 50% of time spent for education and coordination of care. 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 Patient was initially diagnosed with ependymoma in 1999 at [facility]. He underwent resection by Dr. Glasgow in [...] HPI Social History: . Lives with in [place], [place]. Denies tobacco, alcohol, or illicit drug [...] Will discuss further with neurooncology at the [facility] [place] [facility]. Once patient recovers from the most recent surgery will schedule outpatient follow [facility]. Patient and plan discussed with Dr. Loya. Report Completed by: Malathi Lopez MD Pager: [phone] Genny Loya - 04/14/2010 5:18 PM CDT I saw and examined the patient today. I agree with the findings and plan of care as documented in the note by Dr. Lopez. Genny Loya MD 04/14/2010 6:08 PM Cecile Browne - 04/13/2010 3:23 PM CDTAssociated Order(s): MEDICINE INPT CONSULT [facility] Medicine Consultation Note () Date of service: 04/13/2010 I was asked by Maurice Baron [place] [facility] to provide medical recommendations of this patient [...] IVFs. He denies significant medical history of CA, CVA, pulmonary, renal, GI, hepatic complications. 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 Allergies: No Known Allergies Physical Examination: BP 85/52 Pulse 112 Temp(Src) 98.1 ??F (36.7 ??C) (Oral) Resp 18 Ht 5' 10 (1.778 m) Wt 104.327 kg (230 lb) SpO2 96% General Appearance: 64 yr male in [facility], sleeping on arrival lethargic during exam [...] Report Completed by: Cecile Browne PA-C Pager: [phone] Martha Thomas - 04/12/2010 7:47 PM CDT [facility] PM&R Consult Note () Date of service: 04/12/2010 I was asked by Maurice Kirk to evaluate Jie Cullen for eval ITB . Chief Complaint: S/p surgery eval pump Encounter Diagnoses Code Name Primary? 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 518.81 Acute Respiratory Failure 64yo male with known thoracic ependymoma admitted to [facility] on 04/11/2010 He was initially diagnosed with [...] Last change on 03/09/2010 Pump serial number: [id number] Infusion drug: Baclofen Concentration: 1,000 mcg/ml Infusion mode: simple continuous Dose per day: baclofen 225.6 mcg/day [place] volume 4.6 ml Low reservoir alarm volume [...] Yudith Sanders - 04/11/2010 10:04 PM CDT [facility] SICU Critical Care Progress Note Date: 04/11/2010 Date of service: 04/11/2010 Diagnosis: Thoracic empendymoma Maurice Baron XNeurosurgery 64 yr, male S/P: Radical resection of thoracic spinal cord tumor Post-Op Day: #0, ICU Day: #1 HPI/ROS: This 64 yo M with hx of spinal cord tumor presented to [facility] today for non-emergent tumorresection. He was initially [...] 10 mg Rectal DAILY PRN ??? bupicacaine-EPINEPHrine 0.25-1:277583 % injection Intra-Op ??? citalopram (aka CELEXA) [...] CV Exam: Regular rhythm without murmur. Tachycardia. Perinatal Tech: Sinus tachycardia. 12-Lead EKG: Sinus tachycardia. No [...] and begin oral diet. OG placed in [facility]. Renal Last 2 Encounter Wt Readings: Admission (Current) on 04/11/2010 04/11/2010 11:53 AM Weight: 104.327 kg (230 lb) Surgery on 04/11/2010 04/11/2010 11:53 AM Weight: 104.327 kg (230 lb) MIVF: NS at 100 cc/hour Patient Urine Catheter Output (mL) in the past 8 hrs: Urine Catheter Output (mL) 04/11/101999 75 ML Intake/Output Summary (Last 24 hours) at 04/11/102203 Last data filed at 04/11/101999 Gross per [...] Blood drawing, Monitoring, IV access; Plan: Continue #2-[place] in Left, Radial; Day # 1; Indication: [...] in this encounter OR Notes &P - [facility], Provider - 03/29/2010 12:00 AM CDT documented in this encounter Miscellaneous Notes Media - [facility], PROVIDER - 04/25/2010 12:00 AM CDT Media [...] WHOLE BLOOD POC (04/19/2010 10:05 PM CDT) P athologist Signature Glucose, Whole 100 70 - 180 [facility] Blood mg/dl Comment: Point of Care Testing RN Notified Specimen Anatomical Collection Method Collection Time Receive d Time (Source) Location / / Volume Laterality 04/19/2010 10:05 04/19/2010 PM CDT 10:07 PM CDT Maurice Baron MD LAB_1 Performing Organization Address City/[facility] Phon e Number [address] [address] [place], [place] [phone] GLUCOSE, WHOLE BLOOD POC (04/19/2010 5:02 PM CDT) P athologist Signature Glucose, Whole 133 70 - 180 [facility] Blood mg/dl Comment: Point of Care Testing RN Notified Specimen Anatomical Collection Method Collection Time Receive d Time (Source) Location / / Volume Laterality 04/19/2010 5:02 PM 0 5:04 CDT PM CDT Maurice Baron MD LAB_1 Performing Organization Address City/[facility] Phon e Number [address] [address] [place], [place] [phone] XR ABDOMEN DECUBE ONLY (04/19/2010 3:05 PM [...] CONCLUSION: No pneumoperitoneum. Procedure Note Mikal Hawkins Lucas - 04/19/2010Formattin g of this note might [...] film is available. Procedure Note Bianka Mcguire M - 04/19/2010Formatting o f this note might [...] GD (ABNORMAL) INR/PROTIME (04/19/2010 7:25 AM CDT) athologist Signature Protime 23.7 (H) 12.0 - 14.5 [facility] sec INR 2.0 [facility] Specimen Anatomical Collection Method Collection Time Receive d Time (Source) Location / / Volume Laterality 04/19/2010 7:25 AM 0 7:27 CDT AM CDT Criselda Rodriguez PA-C LAB_1 Performing Organization Address [facility] Phon e Number [address] [address] [place], [place] [phone] PURPLE HOLD TUBE (04/19/2010 6:30 AM CDT) [facility] gist Method Time Signature Purple Hold Held [...] Maurice Baron MD LAB_1 Performing Organization Address [facility] Phon e Number [address] [address] [place], [place] [phone] GLUCOSE, WHOLE BLOOD POC (04/18/2010 9:28 PM CDT) athologist Signature Glucose, Whole 126 70 - 180 [facility] Blood mg/dl Comment: Point of Care Testing RN Notified Specimen Anatomical Collection Method Collection Time Receive d Time (Source) Location / / Volume Laterality 04/18/2010 9:28 PM 0 9:36 CDT PM CDT Maurice Baron MD LAB_1 Performing Organization Address [facility] Phon e Number [address] [address] [place], [place] [phone] (ABNORMAL) INR/PROTIME (04/18/2010 9:00 AM CDT) athologist Signature Protime 19.9 (H) 12.0 - 14.5 [facility] sec INR 1.6 [facility] Specimen Anatomical Collection Method Collection Time Receive d Time (Source) Location / / Volume Laterality 04/18/2010 9:00 AM 0 9:33 CDT AM CDT Criselda Rodriguez PA-C LAB_1 Performing Organization Address City/[facility]/ZIP Code Phon e Number [address] [address] [place], [place] [phone] (ABNORMAL) HEMOGLOBIN, BLOOD (04/18/2010 6:50 AM CDT) athologist Signature Hemoglobin 9.2 (L) 13.5 - 17.5 [facility] g/dl Specimen Anatomical Collection Method Collection Time Receive d Time (Source) Location / / Volume Laterality 04/18/2010 6:50 AM 0 7:21 CDT AM CDT Criselda Rodriguez PA-C LAB_1 Performing Organization Address City/[facility]/ZIP Code Phon e Number [address] [address] [place], [place] [phone] GLUCOSE, WHOLE BLOOD POC (04/17/2010 5:29 PM CDT) athologist Signature Glucose, Whole 114 70 - 180 [facility] Blood mg/dl Comment: Point of Care Testing RN Notified Specimen Anatomical Collection Method Collection Time Receive d Time (Source) Location / / Volume Laterality 04/17/2010 5:29 PM 0 5:31 CDT PM CDT Maurice Baron MD LAB_1 Performing Organization Address City/[facility]/ZIP Code Phon e Number [address] [address] [place], [place] [phone] (ABNORMAL) GLUCOSE, WHOLE BLOOD POC (04/17/2010 12:07 PM CDT) P athologist Signature Glucose, Whole 200 (H) 70 - 180 [facility] Blood mg/dl Comment: Point of Care Testing RN Notified Specimen Anatomical Collection Method Collection Time Receive d Time (Source) Location / / Volume Laterality 04/17/2010 12:07 04/17/2010 PM CDT 12:12 PM CDT Maurice Baron MD LAB_1 Performing Organization Address [facility]/ZIP [facility] Phon e Number [address] [address] [place], [place] [phone] GLUCOSE, WHOLE BLOOD POC (04/17/2010 8:07 AM CDT) P athologist Signature Glucose, Whole 107 70 - 180 [facility] Blood mg/dl Comment: Point of Care Testing RN Notified Specimen Anatomical Collection Method Collection Time Receive d Time (Source) Location / / Volume Laterality 04/17/2010 8:07 AM 0 8:08 CDT AM CDT Maurice Baron MD LAB_1 Performing Organization Address [facility] Code Phon e Number [address] [address] [place], [place] [phone] (ABNORMAL) INR/PROTIME (04/17/2010 7:15 AM CDT) athologist Signature Protime 18.6 (H) 12.0 - 14.5 [facility] sec INR 1.5 [facility] Specimen Anatomical Collection Method Collection Time Receive d Time (Source) Location / / Volume Laterality 04/17/2010 7:15 AM 0 9:40 CDT AM CDT Anthony Genao MD LAB_1 Performing Organization Address City/[facility]/ZIP Code Phon e Number [address] [address] [place], [place] [phone] (ABNORMAL) HEMOGRAM/PLTS (04/17/2010 7:15 AM CDT) P athologist Signature WBC 4.2 4.0 - 11.0 [...] Anthony Genao MD LAB_1 Performing Organization Address [facility] Phon e Number [address] [address] [place], [place] [phone] (ABNORMAL) BASIC METABOLIC PANEL (04/17/2010 7:15 AM [...] Anthony Genao MD LAB_1 Performing Organization Address [facility] Phon e Number [address] [address] [place], [place] [phone] GLUCOSE, WHOLE BLOOD POC (04/16/2010 9:00 PM CDT) athologist Signature Glucose, Whole 134 70 - 180 [facility] Blood mg/dl Comment: Point of Care Testing RN Notified Specimen Anatomical Collection Method Collection Time Receive d Time (Source) Location / / Volume Laterality 04/16/2010 9:00 PM 0 9:01 CDT PM CDT Maurice Baron MD LAB_1 Performing Organization Address [facility] Phon e Number [address] [address] [place], [place] [phone] OSMOLALITY, URINE (04/16/2010 4:40 PM CDT) athologist Signature Osmolality, 327 REGIONS Urine Specimen Anatomical Collection Method Collection Time Receive d Time (Source) Location / / Volume Laterality Urine specimen 04/16/2010 4:40 PM 010 4:54 (specimen) CDT PM CDT Anthony Genao MD LAB_1 Performing Organization Address [facility]/ZIP [facility] Phon e Number [address] [address] [place], [place] [phone] OSMOLALITY (04/16/2010 1:20 PM CDT) athologist Signature Osmolality 285 280 - 300 REGIONS mosm/kg Specimen Anatomical Collection Method Collection Time Receive d Time (Source) Location / / Volume Laterality 04/16/2010 1:20 PM 0 1:25 CDT PM CDT Anthony Genao MD LAB_1 Performing Organization Address [facility] Phon e Number [address] [address] [place], [place] [phone] (ABNORMAL) BASIC METABOLIC PANEL (04/16/2010 1:20 PM [...] Maurice Baron MD LAB_1 Performing Organization Address [facility] Phon e Number [address] [address] [place], [place] [phone] GLUCOSE, WHOLE BLOOD POC (04/16/2010 11:22 AM CDT) P athologist Signature Glucose, Whole 148 70 - 180 REGIONS Blood mg/dl Comment: Point of Care Testing RN Notified Specimen Anatomical Collection Method Collection Time Receive d Time (Source) Location / / Volume Laterality 04/16/2010 11:22 04/16/2010 AM CDT 11:28 AM CDT Maurice Baron MD LAB_1 Performing Organization Address [facility] Phon e Number [address] [address] [place], [place] [phone] BASIC METABOLIC PANEL (04/16/2010 10:56 AM CDT) P athologist Signature BUN 10 7 [...] Maurice Baron MD LAB_1 Performing Organization Address City/[facility] Phon e Number [address] [address] [place], [place] [phone] ADD ON LAB ORDERS(SPECIMEN IN LAB) (04/16/2010 10:13 AM CDT) [facility] gist Method Time Signature Add On Test Additional REGIONS Testing Ordered by Specimen Anatomical Collection Method Collection Time Receive d Time (Source) Location / / Volume Laterality 04/16/2010 10:13 04/16/2010 AM CDT 10:18 AM CDT Beth Luna MD LAB_1 Performing Organization Address City/[facility] Code Phon e Number [address] [address] [place], [place] [phone] GLUCOSE, WHOLE BLOOD POC (04/16/2010 7:58 AM CDT) athologist Signature Glucose, Whole 113 70 - 180 REGIONS Blood mg/dl Comment: Point of Care Testing RN Notified Specimen Anatomical Collection Method Collection Time Receive d Time (Source) Location / / Volume Laterality 04/16/2010 7:58 AM 0 8:10 CDT AM CDT Maurice Baron MD LAB_1 Performing Organization Address City/[facility] Phon e Number [address] [address] [place], [place] [phone] (ABNORMAL) INR/PROTIME (04/16/2010 6:00 AM CDT) P athologist Signature Protime 16.0 (H) 12.0 - 14.5 REGIONS sec INR 1.3 REGIONS Specimen Anatomical Collection Method Collection Time Receive d Time (Source) Location / / Volume Laterality 04/16/2010 6:00 AM 0 6:22 CDT AM CDT Maurice Baron MD LAB_1 Performing Organization Address [facility]/ZIP [facility] Phon e Number [address] [address] [place], [place] [phone] (ABNORMAL) INR/PROTIME (04/15/2010 7:00 AM CDT) athologist Signature Protime 14.8 (H) 12.0 - 14.5 REGIONS sec INR 1.1 REGIONS Specimen Anatomical Collection Method Collection Time Receive d Time (Source) Location / / Volume Laterality 04/15/2010 7:00 AM 0 7:06 CDT AM CDT Cecile Browne PA-C LAB_1 Performing Organization Address City/[facility] Phon e Number [address] [address] [place], [place] [phone] (ABNORMAL) BASIC METABOLIC PANEL (04/15/2010 7:00 AM [...] Cecile Browne PA-C LAB_1 Performing Organization Address City/[facility]/ZIP Code Phon e Number [address] [address] [place], [place] [phone] URINE CULTURE (04/14/2010 3:05 PM CDT) [facility] Method Time Signature Specimen Urine REGIONS Description Special Unspecified REGIONS Requests Culture No Growth After REGIONS 1 Day Report Status Final REGIONS 04/15/2010 Specimen Anatomical Collection Method Collection Time Receive d Time (Source) Location / / Volume Laterality 04/14/2010 3:05 PM 0 3:58 CDT PM CDT Maurice Baron MD LAB_1 Performing Organization Address [facility]/ZIP [facility] Phon e Number [address] [address] [place], [place] [phone] US VENOUS DUPLEX LOWER EXTREMITY BILATERAL (04/14/2010 [...] of bilateral lower extremity veins performed by tunnel inspector. Study technically difficult due to consi derable soft tissue swelling. FINDINGS: RIGHT: Nonocclusive thrombus in the dist al common femoral, proximal femoral and profunda femoris veins, better docu mented today. Remainder of the visualized femoral, popliteal and domestic helper ior tibial veins are negative for DVT. [...] of bilateral lower extremity veins performed by tunnel inspector. Study technically difficult due to consi derable soft tissue swelling. FINDINGS: RIGHT: Nonocclusive thrombus in the dist al common femoral, proximal femoral and profunda femoris veins, better docu mented today. Remainder of the visualized femoral, popliteal and domestic helper ior tibial veins are negative for DVT. [...] to co nsiderable soft tissue swelling. Lucy OAKLEY (ABNORMAL) BASIC METABOLIC PANEL (04/14/2010 10:00 AM CDT) P athologist Signature BUN 10 7 [...] Maurice Baron MD LAB_1 Performing Organization Address City/[facility] Phon e Number [address] [address] [place], [place] [phone] ADD ON LAB ORDERS(SPECIMEN IN LAB) (04/14/2010 8:51 AM CDT) Patholo gist Method Time Signature Add On Test Additional REGIONS Testing Ordered by Specimen Anatomical Collection Method Collection Time Receive d Time (Source) Location / / Volume Laterality 04/14/2010 8:51 AM 0 8:56 CDT AM CDT Cecile Browne PA-C LAB_1 Performing Organization Address [facility] Phon e Number [address] [address] [place], [place] [phone] (ABNORMAL) INR/PROTIME (04/14/2010 6:00 AM CDT) P athologist Signature Protime 14.7 (H) 12.0 - 14.5 REGIONS sec INR 1.1 REGIONS Specimen Anatomical Collection Method Collection Time Receive d Time (Source) Location / / Volume Laterality 04/14/2010 6:00 AM 0 6:36 CDT AM CDT Cecile Browne PA-C LAB_1 Performing Organization Address City/[facility]/ZIP [facility] Phon e Number [address] [address] [place], [place] [phone] ECG 12-LEAD ROUTINE (04/13/2010 7:41 PM CDT) P athologist Signature Ventricular Rate 114 BPM MUSE Atrial Rate 114 BPM MUSE P-R Interval 176 ms MUSE QRS Duration 92 ms MUSE QT 326 ms MUSE QTc 449 ms MUSE P [place] 60 degrees MUSE R [place] -42 degrees MUSE T [place] 26 degrees MUSE URL Link MUSE Specimen [...] Cecile Browne PA-C EKG Performing Organization Address City/State/ZIP Code Phon e Number MUSE RHP MUSE CT ANGIOGRAPHY PULMONARY EMBOLISM STUDY (04/13/2010 7:01 PM CDT) Anatomical Region Laterality Modality Chest, Lung, Vascular Computed Tomograph y Specimen (Source) Anatomical Collection Method Collection Time Re ceived Time Location / / Volume Laterality 04/13/2010 7:01 PM CDT Narrative 04/13/2010 7:13 PM CDT CTA CHEST INDICATION: ??Shortness of breath, chest pain. TECHNIQUE: ??After nonenhanced breeding technician teresa ges were obtained, helical acquisition through [...] breath, chest p ain. TECHNIQUE: After nonenhanced breeding technician image s were obtained, helical acquisition through [...] CT URINE CULTURE (04/13/2010 5:25 PM CDT) [facility] Method Time Signature Specimen Urine REGIONS Description Special Unspecified REGIONS Requests Culture <10,000 col/ml REGIONS Mixed Zoila Report Status Final REGIONS 04/15/2010 Specimen Anatomical Collection Method Collection Time Receive d Time (Source) Location / / Volume Laterality 04/13/2010 5:25 PM 0 2:25 CDT PM CDT Maurice Baron MD LAB_1 Performing Organization Address City/State/ZIP Code Phon e Number [address] [address] [place], [place] [phone] ADD ON LAB ORDERS(SPECIMEN IN LAB) (04/13/2010 5:25 PM CDT) [facility] Method Time Signature Add On Test Additional REGIONS Testing Ordered by Specimen Anatomical Collection Method Collection Time Receive d Time (Source) Location / / Volume Laterality 04/13/2010 5:25 PM 0 5:33 CDT PM CDT Cecile Browne PA-C LAB_1 Performing Organization Address [facility]/ZIP [facility] Phon e Number [address] [address] [place], [place] [phone] (ABNORMAL) UA WITH MICROSCOPIC (04/13/2010 5:25 PM CDT) [facility] Method Time Signature Urine Color Light Yellow REGIONS Urine Clarity Hazy REGIONS Specific 1.011 1.005 - REGIONS [place],Ur 1.03 pH, Urine 5.5 4.5 - 8.0 [...] Volume Laterality Urine specimen 04/13/2010 5:25 PM 010 5:33 (specimen) CDT PM CDT Cecile Browne PA-C LAB_1 Performing Organization Address City/[facility]/ZIP [facility] Phon e Number [address] [address] [place], [place] [phone] FREE T4 (04/13/2010 3:55 PM CDT) athologist Signature T4, Free 1.3 0.8 - 2.2 REGIONS ng/dl Specimen Anatomical Collection Method Collection Time Receive d Time (Source) Location / / Volume Laterality 04/13/2010 3:55 PM 0 4:13 CDT PM CDT Cecile Browne PA-C LAB_1 Performing Organization Address City/[facility]/ZIP Code Phon e Number [address] [address] [place], [place] [phone] (ABNORMAL) TSH, SENSITIVE (WITH REFLEX) (04/13/2010 3:55 PM CDT) Analysis Performed At Patho logist Time Signature TSH, with 6.723 (H) 0.465 - REGIONS Reflex 4.68 uIU/ml Specimen Anatomical Collection Method Collection Time Receive d Time (Source) Location / / Volume Laterality 04/13/2010 3:55 PM 0 4:13 CDT PM CDT Cecile Browne PA-C LAB_1 Performing Organization Address [facility]/ZIP Code Phon e Number [address] [address] [place], [place] [phone] ADD ON LAB ORDERS(SPECIMEN IN LAB) (04/13/2010 3:55 PM CDT) Patholo gist Method Time Signature Add On Test Additional REGIONS Testing Ordered by Specimen Anatomical Collection Method Collection Time Receive d Time (Source) Location / / Volume Laterality 04/13/2010 3:55 PM 0 4:13 CDT PM CDT Cecile Browne PA-C LAB_1 Performing Organization Address City/[facility]/ZIP Code Phon e Number [address] [address] [place], [place] [phone] (ABNORMAL) HEMOGLOBIN, BLOOD (04/13/2010 3:55 PM CDT) P athologist Signature Hemoglobin 9.3 (L) 13.5 - 17.5 REGIONS g/dl Specimen Anatomical Collection Method Collection Time Receive d Time (Source) Location / / Volume Laterality 04/13/2010 3:55 PM 0 4:13 CDT PM CDT Cecile Browne PA-C LAB_1 Performing Organization Address City/[facility]/ZIP Code Phon e Number [address] [address] [place], [place] [phone] CORTISOL (04/13/2010 3:55 PM CDT) P athologist Signature Cortisol 15 mcg/dl REGIONS Specimen Anatomical Collection Method Collection Time Receive d Time (Source) Location / / Volume Laterality 04/13/2010 3:55 PM 0 4:13 CDT PM CDT Cecile Browne PA-C LAB_1 Performing Organization Address City/State/ZIP Code Phon e Number [address] [address] [place], [place] [phone] XR PORTABLE CHEST 1 VIEW (04/13/2010 8:44 [...] bilateral pleural effusions. Procedure Note Bianka Brooks Ruben - 04/13/2010Formatting o f this note might [...] BASIC METABOLIC PANEL (04/13/2010 5:45 AM CDT) P athologist Signature BUN 18 7 - 20 [...] Maurice Baron MD LAB_1 Performing Organization Address [facility] Phon e Number [address] [address] [place], [place] [phone] PHOSPHORUS (04/13/2010 5:45 AM CDT) P athologist Signature Phosphorus 3.2 2.5 - 4.5 REGIONS mg/dl Specimen Anatomical Collection Method Collection Time Receive d Time (Source) Location / / Volume Laterality 04/13/2010 5:45 AM 0 5:57 CDT AM CDT Maurice Baron MD LAB_1 Performing Organization Address [facility] Phon e Number [address] [address] [place], [place] [phone] MAGNESIUM (04/13/2010 5:45 AM CDT) P athologist Signature Magnesium 1.8 1.6 - 2.3 REGIONS mg/dl Specimen Anatomical Collection Method Collection Time Receive d Time (Source) Location / / Volume Laterality 04/13/2010 5:45 AM 0 5:57 CDT AM CDT Maurice Baron MD LAB_1 Performing Organization Address City/[facility]/ZIP Code Phon e Number [address] [address] [place], [place] [phone] (ABNORMAL) HEMOGRAM/PLTS (04/13/2010 5:45 AM CDT) athologist Signature WBC 8.2 4.0 [...] Organization Address City/State/ZIP Code Phon e Number [address] [address] [place], [place] [phone] (ABNORMAL) HEMOGLOBIN, BLOOD (04/13/2010 2:30 AM CDT) athologist [facility] Hemoglobin 9.6 (L) 13.5 - 17.5 REGIONS g/dl Comment: Result Checked Specimen Anatomical Collection Method Collection Time Receive d Time (Source) Location / / Volume Laterality 04/13/2010 2:30 AM 0 2:36 CDT AM CDT Maurice Baron MD LAB_1 Performing Organization Address City/[facility]/ZIP [facility] Phon e Number [address] [address] [place], [place] [phone] GLUCOSE, WHOLE BLOOD POC (04/12/2010 3:59 PM CDT) athologist [facility] Glucose, Whole 130 70 - 180 REGIONS Blood mg/dl Comment: Point of Care Testing RN Notified Specimen Anatomical Collection Method Collection Time Receive d Time (Source) Location / / Volume Laterality 04/12/2010 3:59 PM 0 CDT 11:36 PM CDT Maurice Baron MD LAB_1 Performing Organization Address [facility]/ZIP [facility] Phon e Number [address] [address] [place], [place] [phone] GLUCOSE, WHOLE BLOOD POC (04/12/2010 12:26 PM CDT) P athologist Signature Glucose, Whole 145 70 - 180 REGIONS Blood mg/dl Comment: Point of Care Testing RN Notified Specimen Anatomical Collection Method Collection Time Receive d Time (Source) Location / / Volume Laterality 04/12/2010 12:26 04/12/2010 PM CDT 11:36 PM CDT Maurice Baron MD LAB_1 Performing Organization Address [facility] Phon e Number [address] [address] [place], [place] [phone] US VENOUS DUPLEX LOWER EXTREMITY BILATERAL (04/12/2010 [...] Organization Address City/State/ZIP Code Phon e Number [address] [address] [place], [place] [phone] MR THORACIC SPINE WITH/WITHOUT CONTRAST (04/12/2010 10:35 AM CDT) Anatomical Region Laterality Modality Spine, T-Spine, L-Spine, C-Spine, Skeletal Magnetic Resonance Specimen (Source) Anatomical Collection Method Collection Time Re ceived Time Location / / Volume Laterality 04/12/2010 10:35 AM CDT Narrative 04/12/2010 11:01 AM CDT MRI THORACIC SPINE [facility] 04/12/2010 INDICATIONS: Status post tumor resection [...] Marcel Schaefer - 04/12/[address] [facility] 04/12/2010 INDICATIONS: Status post tumor resection [...] Maurice Baron MD LAB_1 Performing Organization Address [facility] Phon e Number [address] [address] [place], [place] [phone] Troponin I q6h X3 (04/12/2010 4:25 AM CDT) athologist Signature Troponin I <0.012 0.000 - REGIONS 0.03 ng/ml Comment: PLEASE NOTE CHANGE IN REFERENCE RANGE Specimen Anatomical Collection Method Collection Time Receive d Time (Source) Location / / Volume Laterality 04/12/2010 4:25 AM 0 4:45 CDT AM CDT Maurice Baron MD LAB_1 Performing Organization Address City/[facility] Phon e Number [address] [address] [place], [place] [phone] PHOSPHORUS (04/12/2010 4:24 AM CDT) athologist Signature Phosphorus 2.9 2.5 - 4.5 REGIONS mg/dl Specimen Anatomical Collection Method Collection Time Receive d Time (Source) Location / / Volume Laterality 04/12/2010 4:24 AM 0 4:46 CDT AM CDT Maurice Baron MD LAB_1 Performing Organization Address [facility] Phon e Number [address] [address] [place], [place] [phone] MAGNESIUM (04/12/2010 4:24 AM CDT) athologist Signature Magnesium 2.1 1.6 - 2.3 REGIONS mg/dl Specimen Anatomical Collection Method Collection Time Receive d Time (Source) Location / / Volume Laterality 04/12/2010 4:24 AM 0 4:46 CDT AM CDT Maurice Baron MD LAB_1 Performing Organization Address [facility] Phon e Number [address] [address] [place], [place] [phone] ADD ON LAB ORDERS(SPECIMEN IN LAB) (04/12/2010 4:24 AM CDT) [facility] gist Method Time Signature Add On Test Additional REGIONS Testing Ordered by Specimen Anatomical Collection Method Collection Time Receive d Time (Source) Location / / Volume Laterality 04/12/2010 4:24 AM 0 4:46 CDT AM CDT Maurice Baron MD LAB_1 Performing Organization Address [facility] Phon e Number [address] [address] [place], [place] [phone] (ABNORMAL) Basic Metabolic Panel (04/12/2010 4:24 AM CDT) athologist Signature BUN 15 7 - 20 [...] Lucy Colmenares PA-C LAB_1 Performing Organization Address City/[facility]/ZIP Code Phon e Number [address] [address] [place], [place] [phone] (ABNORMAL) Hemogram with Plts (04/12/2010 4:24 AM CDT) athologist Signature WBC 8.1 4.0 - 11.0 [...] Lucy Colmenares PA-C LAB_1 Performing Organization Address [facility]/ZIP [facility] Phon e Number [address] [address] [place], [place] [phone] (ABNORMAL) GLUCOSE, WHOLE BLOOD POC (04/12/2010 4:02 AM CDT) athologist Signature Glucose, Whole 229 (H) 70 - 180 REGIONS Blood mg/dl Comment: Point of Care Testing RN Notified IV Insulin Specimen Anatomical Collection Method Collection Time Receive d Time (Source) Location / / Volume Laterality 04/12/2010 4:02 AM 0 4:38 CDT AM CDT Maurice Baron MD LAB_1 Performing Organization Address [facility]/ZIP Code Phon e Number [address] [address] [place], [place] [phone] (ABNORMAL) GLUCOSE, WHOLE BLOOD POC (04/12/2010 12:02 AM CDT) P athologist Signature Glucose, Whole 236 (H) 70 - 180 REGIONS Blood mg/dl Comment: Point of Care Testing RN Notified IV Insulin Specimen Anatomical Collection Method Collection Time Receive d Time (Source) Location / / Volume Laterality 04/12/2010 12:02 04/12/2010 AM CDT 12:45 AM CDT Maurice Baron MD LAB_1 Performing Organization Address City/[facility]/ZIP Code Phon e Number [address] [address] [place], [place] [phone] Calcium, Ionized (04/11/2010 10:31 PM CDT) athologist Signature Calcium, 1.17 mmol/L REGIONS Ionized WB Comment: Usual range 1.0-1.3 mmol/L at p H 7.4 pH, Whole Blood 7.401 7.350 - 7.45 REGIONS Specimen Anatomical Collection Method Collection Time Receive d Time (Source) Location / / Volume Laterality Whole Blood 04/11/2010 10:31 04/11/2010 PM CDT 10:32 PM CDT Maurice Baron MD LAB_1 Performing Organization Address City/[facility]/ZIP Code Phon e Number [address] [address] [place], [place] [phone] Troponin I q6h X3 (04/11/2010 10:30 PM CDT) athologist Signature Troponin I <0.012 0.000 - REGIONS 0.03 ng/ml Comment: PLEASE NOTE CHANGE IN REFERENCE RANGE Specimen Anatomical Collection Method Collection Time Receive d Time (Source) Location / / Volume Laterality 04/11/2010 10:30 04/11/2010 PM CDT 10:31 PM CDT Maurice Baron MD LAB_1 Performing Organization Address City/[facility]/ZIP Code Phon e Number [address] [address] [place], [place] [phone] Urine Culture (04/11/2010 10:30 PM CDT) [facility] gist Method Time Signature Specimen Urine REGIONS Description Cath/Bladder Special Unspecified REGIONS Requests Culture No Growth After REGIONS 2 Days Report Status Final REGIONS 04/13/2010 Specimen Anatomical Collection Method Collection Time Receive d Time (Source) Location / / Volume Laterality Urine specimen 04/11/2010 10:30 0 (specimen) PM CDT 11:18 PM CDT Maurice Baron MD LAB_1 Performing Organization Address [facility] Phon e Number [address] [address] [place], [place] [phone] INR/Protime (PT/INR) (04/11/2010 10:30 PM CDT) athologist Signature Protime 13.5 12.0 - 14.5 REGIONS sec INR 1.0 REGIONS Specimen Anatomical Collection Method Collection Time Receive d Time (Source) Location / / Volume Laterality 04/11/2010 10:30 04/11/2010 PM CDT 10:31 PM CDT Maurice Baron MD LAB_1 Performing Organization Address City/[facility]/ZIP Code Phon e Number [address] [address] [place], [place] [phone] Magnesium (04/11/2010 10:30 PM CDT) P athologist Signature Magnesium 1.6 1.6 - 2.3 REGIONS mg/dl Specimen Anatomical Collection Method Collection Time Receive d Time (Source) Location / / Volume Laterality 04/11/2010 10:30 04/11/2010 PM CDT 10:31 PM CDT Maurice Baron MD LAB_1 Performing Organization Address City/[facility]/ZIP [facility] Phon e Number [address] [address] [place], [place] [phone] Phosphorus (04/11/2010 10:30 PM CDT) P athologist Signature Phosphorus 4.2 2.5 - 4.5 REGIONS mg/dl Specimen Anatomical Collection Method Collection Time Receive d Time (Source) Location / / Volume Laterality 04/11/2010 10:30 04/11/2010 PM CDT 10:31 PM CDT Maurice Baron MD LAB_1 Performing Organization Address [facility] Phon e Number [address] [address] [place], [place] [phone] (ABNORMAL) Basic Metabolic Panel (K, Na, CO2, [...] Maurice Baron MD LAB_1 Performing Organization Address City/[facility] Phon e Number [address] [address] [place], [place] [phone] (ABNORMAL) Hemogram with Platelets (04/11/2010 10:30 PM CDT) athologist Signature WBC 6.5 4.0 - 11.0 [...] Maurice Baron MD LAB_1 Performing Organization Address [facility] Phon e Number [address] [address] [place], [place] [phone] (ABNORMAL) Blood Gas, Arterial (ABG) (04/11/2010 10:30 PM CDT) [facility] Method Time Signature pH, Whole 7.401 7.350 [...] / Volume Laterality Arterial blood 04/11/2010 10:30 201 0 specimen PM CDT 10:43 PM CDT (specimen) Maurice Baron MD LAB_1 Performing Organization Address [facility]/ZIP [facility] Phon e Number [address] [address] [place], [place] [phone] XR PORTABLE CHEST 1 VIEW (04/11/2010 9:03 [...] ms MUSE QTc 487 ms MUSE P [place] 49 degrees MUSE R [place] -49 degrees MUSE T [place] 15 degrees MUSE URL Link MUSE Specimen (Source) Anatomical Collection Method Collection Time Re ceived Time Location / / Volume Laterality 04/11/2010 9:00 PM CDT Narrative MUSE - 04/13/2010 8:19 AM CDT Sinus tachycardia Left anterior fascicular block Abnormal ECG No previous ECGs available Procedure Note Sky Javed - 04/13/2010 Sinus tachycardia Left anterior fascicular block Abnormal ECG No previous ECGs available Maurice Baron MD EKG Performing Organization Address [facility] Phon e Number MUSE RHP MUSE MRSA ADMIT SCREEN (04/11/2010 9:00 PM CDT) Component Value Ref Test Analysis Performed At [facility] gist Range Method Time Signature Specimen Nose [...] Maurice Baron MD LAB_1 Performing Organization Address [facility] Phon e Number [address] [address] [place], [place] [phone] (ABNORMAL) GLUCOSE, WHOLE BLOOD POC (04/11/2010 8:28 PM CDT) P athologist Signature Glucose, Whole 183 (H) 70 - 180 REGIONS Blood mg/dl Comment: Point of Care Testing RN Notified Specimen Anatomical Collection Method Collection Time Receive d Time (Source) Location / / Volume Laterality 04/11/2010 8:28 PM 0 8:38 CDT PM CDT Maurice Baron MD LAB_1 Performing Organization Address [facility] Phon e Number [address] [address] [place], [place] [phone] ANAEROBIC CULTURE (04/11/2010 4:30 PM CDT) [facility] gist Method Time Signature Specimen Tissue DEEPER REGIONS Description COLLECTION Posterior Neck Special Received in REGIONS Requests Anaport Vial Aerobic Cult [id number] REGIONS Number Culture No Anaerobes REGIONS Isolated Report Status Final [facility] 04/17/2010 Specimen Anatomical Collection Method Collection Time Receive d Time (Source) Location / / Volume Laterality 04/11/2010 4:30 PM 0 6:18 CDT PM CDT Maurice Baron MD LAB_1 Performing Organization Address [facility] Phon e Number [address] [address] [place], [place] [phone] AEROBIC CULTURE (04/11/2010 4:30 PM CDT) [facility] Method Time Signature Specimen Tissue DEEPER REGIONS [...] Maurice Baron MD LAB_1 Performing Organization Address [facility] Code Phon e Number [address] [address] [place], [place] [phone] ANAEROBIC CULTURE (04/11/2010 4:00 PM CDT) [facility] Method Time Signature Specimen Tissue REGIONS Description Posterior Neck SUB PUSTUAL COLLECTION Special Received in REGIONS Requests Anaport Vial Aerobic Cult [id number] REGIONS Number Culture No Anaerobes [facility] Isolated Report Status Final [facility] 04/17/2010 Specimen Anatomical Collection Method Collection Time Receive d Time (Source) Location / / Volume Laterality 04/11/2010 4:00 PM 0 6:32 CDT PM CDT Maurice Baron MD LAB_1 Performing Organization Address [facility] Phon e Number [address] [address] [place], [place] [phone] AEROBIC CULTURE (04/11/2010 4:00 PM CDT) [facility] Method Time Signature Specimen Tissue SUB REGIONS Description PUSTUAL COLLECTION Posterior Neck Special Received in REGIONS Requests Anaport Vial Gram Smear Rare PMNs Seen REGIONS Gram Smear No Organisms REGIONS Seen Culture No Growth REG[facility] After 4 Days Report Status Final [facility] 04/15/2010 Specimen Anatomical Collection Method Collection Time Receive d Time (Source) Location / / Volume Laterality 04/11/2010 4:00 PM 06/01/201 0 6:29 CDT PM CDT Maurice Baron MD LAB_1 Performing Organization Address City/[facility]/ZIP [facility] Phon e Number [address] [address] [place], [place] [phone] ANAEROBIC CULTURE (04/11/2010 4:00 PM CDT) Patholo gist Method Time Signature Specimen Tissue SUB [facility]IONS Description PUSTUAL WALL Posterior Neck Special Received in REGIONS Requests Anaport Vial Aerobic Cult [id number] REGIONS Number Culture No Anaerobes [facility] Isolated Report Status Final [facility] 04/17/2010 Specimen Anatomical Collection Method Collection Time Receive d Time (Source) Location / / Volume Laterality 04/11/2010 4:00 PM 0 6:25 CDT PM CDT Maurice Baron MD LAB_1 Performing Organization Address [facility] Phon e Number [address] [address] [place], [place] [phone] AEROBIC CULTURE (04/11/2010 4:00 PM CDT) Patholo gist [...] Maurice Baron MD LAB_1 Performing Organization Address City/[facility]/ZIP Code Phon e Number [address] [address] [place], [place] [phone] ANAEROBIC CULTURE (04/11/2010 4:00 PM CDT) Patholo gist Method Time Signature Specimen Aspirate REGIONS Description Posterior Neck SUBPUSTUAL COLLECTION Special Received in REGIONS Requests Anaport Vial Aerobic Cult [id number] REGIONS Number Culture No Anaerobes [facility] Isolated Report Status Final [facility] 04/17/2010 Specimen Anatomical Collection Method Collection Time Receive d Time (Source) Location / / Volume Laterality 04/11/2010 4:00 PM 0 4:07 CDT PM CDT Maurice Baron MD LAB_1 Performing Organization Address [facility] Phon e Number [address] [address] [place], [place] [phone] AEROBIC CULTURE (04/11/2010 4:00 PM CDT) [facility] gist Method Time Signature Specimen Aspirate REGIONS Description Posterior Neck SUBPUSTUAL COLLECTION Special Received in REGIONS Requests Anaport Vial Gram Smear Rare PMNs Seen REGIONS Gram Smear No Organisms REGIONS Seen Gram Smear Results Called REGIONS to Dr Baron [place] Speaker Phone [phone] at 16:30 on Gram Smear 04/11 by AG REGIONS Culture No Growth REGIONS After 3 Days Report Status Final [facility] 04/14/2010 Specimen Anatomical Collection Method Collection Time Receive d Time (Source) Location / / Volume Laterality 04/11/2010 4:00 PM 0 4:07 CDT PM CDT Maurice Baron MD LAB_1 Performing Organization Address [facility] Phon e Number [address] [address] [place], [place] [phone] ABO Rh & Antibody Screen (Type & Screen) (04/11/2010 11:57 AM CDT) [facility] Method Time Signature Crossmatch 04/14/2010 REGIONS Expires ABO/RH(D) A NEGATIVE [facility] Antibody NEGATIVE [facility] Screen Specimen Anatomical Collection Method Collection Time Receive d Time (Source) Location / / Volume Laterality 04/11/2010 11:57 04/11/2010 AM CDT 12:06 PM CDT Maurice Baron MD LAB_1 Performing Organization Address [facility] Phon e Number [address] [address] [place], [place] [phone] aPTT (Activated Partial Thromboplastin Time) (04/11/2010 11:57 AM CDT) athologist Signature PTT 27.0 24.0 - 37.0 REGIONS sec Specimen Anatomical Collection Method Collection Time Receive d Time (Source) Location / / Volume Laterality 04/11/2010 11:57 04/11/2010 AM CDT 12:05 PM CDT Maurice Baron MD LAB_1 Performing Organization Address City/[facility]/ZIP [facility] Phon e Number [address] [address] [place], [place] [phone] INR/Protime (PT/INR) (04/11/2010 11:57 AM CDT) P athologist Signature Protime 12.5 12.0 - 14.5 REGIONS sec INR 0.9 REGIONS Specimen Anatomical Collection Method Collection Time Receive d Time (Source) Location / / Volume Laterality 04/11/2010 11:57 04/11/2010 AM CDT 12:05 PM CDT Maurice Baron MD LAB_1 Performing Organization Address [facility] Phon e Number [address] [address] [place], [place] [phone] SURGICAL PATH (04/11/2010 7:00 AM CDT) Patholo gist Method Time Signature 9911 (NOTE) [facility] Surgical Final Report Patient Name: JIE CULLEN Taken: 04/11/2010 Received: 04/11/2010 Reported: 04/20/2010 Physician(s): MAURICE BARON ([id number]) ? 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 ??The histologic findings are similar to the prev ious recurrence. ??On the current biopsy there are focal areas of necrosis, however the findings may be secondary to treatment effect. ? ?There is no definitive evidence of dedifferentitation. ??Dr. Stephanie ey has reviewed this case and concurs with the above interpretation . ??This case was discussed with Dr. Baron on 04/14/10. cab/04/13/2010 Electronically Signed Out By ? [place] Estrada MD ([id number]) Procedures/Addenda Clinical History Thoracic tumor Gross Description [...] three slides. ?? cab/04/13/2010 [place] Estrada MD ([id number]) Specimen Anatomical Collection Method Collection Time Receive d Time (Source) Location / / Volume Laterality SPINAL CORD 04/11/2010 7:00 AM 0 9:32 STRUCTURE / CDT PM CDT Unknown Maurice Baron MD LAB_1 Performing Organization Address City/State/ZIP Code Phon e Number [address] [address] [place], [place] [phone] EKG IP (04/11/2010 12:00 AM CDT) Specimen [...] NIELS, LD - 04/14/2010 1:42 PM CDT [facility] Nutrition Initial Limited Assessment and Care Plan Reason for Assessing Patient: LOS Assessment: Patient was well nourished HEEL SANDER and expect intake to be adequate within [...] Ralph, NIELS,LD If you have questions, page [phone] Weekend pager: [phone] Nutrition Assessment Data Current Nutrition/Diet Order: Diet: Regular diet Patient/Family Interview: Pt and family said appetite continues to improve. He had two bowls of soupand pineapple for lunch Food and Nutrition-Related History: Diet History: Regular diet Intake/Digestive Problems HEEL SANDER: no problems noted. Pt had a good appetite HEEL SANDER and pts weight has beenstable Pertinent Biochemical [...] Trudi Locke - 04/13/2010 12:01 PM CDT [facility] Physical Therapy Evaluation Patient Seen: [...] in patient contact: AM: 30 minutes Trudi Locke PT Phone number is [phone] Pager: [phone] --- End of Report --- Initial Assessments - Abby Ellsworth - 04/13/2010 11:42 AM CDT [facility] Occupational Therapy ADL Evaluation Diagnosis: Encounter Diagnoses Code Name Primary? 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 518.81 Acute Respiratory Failure No past medical history on file. Subjective: Prior ADL Status Residence: Lives with spouse, in house Self Care: Assist needed with LE dressing Meal Prep: defers to spouse Laundry/Cleaning: defers to spouse Finances: shared responsibility Shopping: shared responsibility Transportation: licensed lokie driver Bathroom Location and Set-up: walk-in shower [...] spent in patient contact: 30 minutes [facility] (pager) OT Dept #: [phone] - OT Weekend Pager #: [phone] - [facility] [place] Main #: [phone] --- End of Report --- Initial Assessments - Spenser Morocho - 04/11/2010 11:47 PM CDT [facility] Med-Surg / ICU / Rehab / Burn Nursing Initial Assessment Note GENERAL INFORMATION/PATIENT IDENTIFICATION/HISTORY Actual Arrival Date on Unit: 04/11/10 Actual Arrival Time on Unit: 2030 Patient a transfer from another hospital for [...] will continue to assess andmake appropriate referrals/interventions PSYCHOSOCIAL/SPIRITUAL/PENTECOSTAL/CULTURAL/ABUSE/CHEMICAL Suicide Health Inventory Do you currently have [...] 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, grief/loss, etc.): Yes - Window Cutter Consult Recommended Cultural practices that affect [...] Bernard Alcantar)1999 (Given - Provider: Malika Maradiaga, RN) 0800 (Given - Provider: Bernard Alcantar)1999 (Given - Provider: Malika Maradiaga, VALERIE) 0800 (Given - Provider: Bernard Alcantar) 10 mg, [...] (CANCELED) 0 926 (Given - Provider: Bernard Alcantar)2126 (Given - Provider: Malika Maradiaga, VALERIE) 0926 (Given - Provider: Bernard Alcantar) 100 mg, SC, Q12H (NON-STND), First dose on Sat04/15/10 at 0926, Until Discontinued ferrous sulfate tablet 325 mg 0800 (Given - Provider: Adam Alcantar) 0800 (Given - Provider: Bernard Alcantar) 0800 (Given - Provider: Bernard Alcantar ) 325 mg, Oral, QDAY CML, First dose on Sat04/17/10 at 1222, Until Discontinued gabapentin (aka NEURONTIN) capsule 200 mg (CANCELED) 0 800 (Given - Provider: Bernard Alcantar)1400 (Given - Provider: Bernard Alcantar)1999 (Given - Provider: Malika Maradiaga, VALERIE) 0800 (Given - Provider: Bernard Alcantar )1999 (Given - Provider: Malika Maradiaga, VALERIE) 0800 (Given - Provider: Bernard Alcantar) 200 mg, Oral, TID, First dose on [...] Oral, TID, First dose on Sat04/11/10 at 202, Until Discont inued magnesium citrate oral liquid 300 mL (COMPLETED) 2130 (Given - Provider: Malika Maradiaga, VALERIE) 300 [...] liquid 200 0 (Given - Provider: Malika Maradiaga RN) 0800 (Given - Provider: Bernard Alcantar )1999 (Given - Provider: Malika Maradiaga, VALERIE) 0800 (Given - Provider: Bernard Alcantar ) Topical, BID, First dose on Sat04/18/10 at 1106, Until Discontinu ed remove lidocaine patch 1 Each (CANCELED) 2100 (Given - Provider: Malika Maradiaga, RN) 2100 [...] Malika Maradiaga, VALERIE)1999 (Given - Provider: Malika Maradiaga, VALERIE) 0800 [...] VALERIE) 1600 (Given - Provider: Malika Maradiaga, VALERIE) 7.5 mg, Oral, WARFARIN - 1600, First [...] spasms documented in this encounter Care Teams Technical Services Coordinator Relationship Specialty Start Date End Date Unassigned, Provider PCP - General 11/28/01 05/21/[address] [place] [address] documented as of this encounter
--- OUTSIDE RECORDS SUMMARY | 2022-06-20 02:37 | XMS_ITS | Encounter Summary ---
:1945 [facility] Address [address] [place] [address] Care Team Providers Name Role Phone Unassigned, Provider Primary Care Provider Unavailable Encounter Details Date Type Department Care Team Description 04/11/2010 Correspondence [facility] Radiology, MRI SAFETY SHEET [address] [place] [address] Provider [place] [address] Social History Tobacco Use Types Packs/Day Years Used Date Smoking Tobacco: Never Alcohol Use Standard Drinks/Week Comments No 0 (1 standard drink = 0.6 oz pure alcoho l) Sex Assigned at Date Recorded Male 08/06/2021 5:59 PM CDT documented as of this encounter Progress Notes [facility] RADIOLOGY, PROVIDER - 04/17/2010 6:23 PM CDT documented in this encounter Plan of Treatment Not on filedocumented as of this encounter Visit Diagnoses Not on filedocumented in this encounter Care Teams Price Analyst Relationship Specialty Start Date End Date Unassigned, Provider PCP - General 11/28/01 05/21/10 [address] [place] [address] documented as of this encounter
--- OUTSIDE RECORDS SUMMARY | 2022-06-20 02:37 | XMS_ITS | Encounter Summary ---
:1945 Author Organization [facility] Address [address] [place] [address] Care Team Providers Name Role Phone Unassigned, Provider Primary Care Provider Unavailable Encounter Details Date Type Department Care Team Description 04/11/2010 Correspondence External to External, Provid er [place] [address] Social History Tobacco Use Types Packs/Day Years Used Date Smoking Tobacco: Never Alcohol Use Standard Drinks/Week Comments No 0 (1 standard drink = 0.6 oz pure alcoho l) Sex Assigned at Date Recorded Male 08/06/2021 5:59 PM CDT documented as of this encounter Progress Notes Interface, In Chrtscr And Scan - 04/11/2010 2:07 PM CDT documented in this encounter Plan of Treatment Not on filedocumented as of this encounter Visit Diagnoses Not on filedocumented in this encounter Care Teams Blue Leather Setter Relationship Specialty Start Date End Date Unassigned, Provider PCP - General 11/28/01 05/21/[address] [place] [address] documented as of this encounter
--- OUTSIDE RECORDS SUMMARY | 2022-06-20 02:37 | XMS_ITS | Encounter Summary ---
:1945 Author [facility] Address [address], [place] [address] Care Team Providers Name Role Phone Unassigned, Provider Primary Care Provider Unavailable Reason for Visit Reason Onset Date Comments Surgery Questions 04/07/2010 Encounter Details Date Type Department Care Team Description 04/07/2010 Telephone Specialty Center [address] Garry Neff, Surgery Questions NeuroSurgery [address] [place] [address] [place] [address] [phone] (Wo rk) Social History Tobacco Use Types Packs/Day Years Used Date Smoking Tobacco: Never Alcohol Use Standard Drinks/Week Comments No 0 (1 standard drink = 0.6 oz pure alcoho l) Sex Assigned at Date Recorded Male 08/06/2021 5:59 PM CDT documented as of this encounter Nursing Notes Michaelle Fletcher - 04/07/2010 3:54 PM CDT Returned her call and informed that there are 180 min booked for actual surgery time and she needs to add to it pre -op and post op time. She was grateful. Michaelle Fletcher R.N. Ming Livingston - 04/07/2010 1:34 PM CDT Patient's Heather [phone] would like a call today she has some questions about the length of husbands surgery on April 11 documented in this encounter Plan of Treatment Not on filedocumented as of this encounter Visit Diagnoses Not on filedocumented in this encounter Care Teams Surgical Instrument Mechanic Relationship Specialty Start Date End Date Unassigned, Provider PCP - General 11/28/01 05/21/[address] [place] [address] documented as of this encounter
--- OUTSIDE RECORDS SUMMARY | 2022-06-20 02:38 | XMS_ITS | Encounter Summary ---
:1945 Author Organization [facility] Address [address] [address] Care Team Providers Name Role Phone Unassigned, Provider Primary Care Provider Unavailable Encounter Details Date Type Department Care Team Description 03/09/2010 Outside Hospital External to REGISTRAT ION INFO Social History Tobacco Use Types Packs/Day Years Used Date Smoking Tobacco: Never Assessed Sex Assigned at Date Recorded Male 08/06/2021 5:59 PM CDT documented as of this encounter Progress Notes Interface, In Chrtscr And Scan - 04/19/2010 11:56 AM CDT documented in this encounter Plan of Treatment Not on filedocumented as of this encounter Visit Diagnoses Not on filedocumented in this encounter Care Teams Natural Resources Engineer Relationship Specialty Start Date End Date Unassigned, Provider PCP - General 11/28/01 05/21/[address] [place] [address] documented as of this encounter
--- OUTSIDE RECORDS SUMMARY | 2022-06-20 02:38 | XMS_ITS | Encounter Summary ---
:1945 Author [facility] Address [address] [place] [address] Care Team Providers Name Role Phone Unassigned, Provider Primary Care Provider Unavailable Encounter Details Date Type Department Care Team Description 04/05/2010 Correspondence [facility] Radiology, MRI SAFETY SHEET [address] [place] [address] [place] [address] Social History Tobacco Use Types Packs/Day Years Used Date Smoking Tobacco: Never Alcohol Use Standard Drinks/Week Comments No 0 (1 standard drink = 0.6 oz pure alcoho l) Sex Assigned at Date Recorded Male 08/06/2021 5:59 PM CDT documented as of this encounter Progress Notes [facility] RADIOLOGY, PROVIDER - 04/05/2010 6:50 PM CDT documented in this encounter Plan of Treatment Not on filedocumented as of this encounter Visit Diagnoses Not on filedocumented in this encounter Care Teams [employer] Construction Supervisor Relationship Specialty Start Date End Date Unassigned, Provider PCP - General 11/28/01 05/21/10 [address] [place] [address] documented as of this encounter
--- OUTSIDE RECORDS SUMMARY | 2022-06-20 02:38 | XMS_ITS | Encounter Summary ---
:1945 [facility] Address [address] [address] Care Team Providers Name Role Phone Unassigned, Provider Primary Care Provider Unavailable Encounter Details Date Type Department Care Team Description 03/29/2010 Orders Only External to Alfonso Carlson MD [address] [place] [phone] (Wo rk) Social History Tobacco Use Types Packs/Day Years Used Date Smoking Tobacco: Never Alcohol Use Standard Drinks/Week Comments Not Asked 0 (1 standard drink = 0.6 oz pure alcoho l) Sex Assigned at Date Recorded Male 08/06/2021 5:59 PM CDT documented as of this encounter Procedure Notes External, Provider - 03/29/2010 12:00 AM CDTAssociated Order(s): SCANNED LAB documented in this encounter Plan of Treatment Not on filedocumented as of this encounter Procedures Procedure Name Priority Date/Time Associated Diagnosis Comme nts SCANNED LAB 03/29/2010 12:00 AM Results for this CDT procedure are i n the results section . documented in this encounter Results SCANNED LAB (03/29/2010 12:00 AM CDT) Specimen (Source) Anatomical Location Collection Method / Collectio n Time Received Time / Laterality Volume 03/29/2010 Narrative This result has an attachment that is no t available. Transcriptions External, Provider - 03/29/2010 12:00 AM CDT Garry Neff MD LAB_1 documented in this encounter Visit Diagnoses Not on filedocumented in this encounter Care Teams Intelligence Agent Relationship Specialty Start Date End Date Unassigned, Provider PCP - General 11/28/01 05/21/[address] [place] [phone] documented as of this encounter
--- OUTSIDE RECORDS SUMMARY | 2022-06-20 02:38 | XMS_ITS | Encounter Summary ---
:1945 Author Organization [facility] Address [address] [place] [address] Care Team Providers Name Role Phone Unassigned, Provider Primary Care Provider Unavailable Encounter Details Date Type Department Care Team Description 04/05/2010 Invasive Imaging [facility] Intervention al Radiology [address] [place] [id number] Social History Tobacco Use Types Packs/Day Years Used Date Smoking Tobacco: Never Alcohol Use Standard Drinks/Week Comments No 0 (1 standard drink = 0.6 oz pure alcoho l) Sex Assigned at Date Recorded Male 08/06/2021 5:59 PM CDT documented as of this encounter Plan of Treatment Not on filedocumented as of this encounter Procedures Procedure Name Priority Date/Time Associated Diagnosis Comme nts IR ANGIOGRAM SPINAL Routine 04/05/2010 5:48 PM Re sults for this SELECTIVE CDT procedure are i n the results section. documented in this encounter Results IR SPINAL SELECT EACH VESSEL (04/05/2010 5:48 [...] performed over approximately a 9 year pe [facility] of time. 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 He is to undergo a resection of this recurrence early in the coming week. [facility] we perform a spinal [...] set that was exchanged for a 5 Prydeinig sheath. A 5 [facility] C2 catheter was then advanced over the [...] set that was exchanged for a 5 Prydeinig sheath. A 5 [facility] C2 catheter was then advanced over the [...] ising from the left T9 segmental level. Garry Neff MD RAD IR documented in this encounter Visit Diagnoses Not on filedocumented in this encounter Care Teams Administrative Aide Relationship Specialty Start Date End Date Unassigned, Provider PCP - General 11/28/01 05/21/[address] [place] [phone] documented as of this encounter
--- OUTSIDE RECORDS SUMMARY | 2022-06-20 02:38 | XMS_ITS | Encounter Summary ---
:1945 [facility] Address [address] [place] [address] Care Team Providers Name Role Phone Unassigned, Provider Primary Care Provider Unavailable Encounter Details Date Type Department Care Team Description 04/05/2010 Consent for [facility] Department RH INFORM ED CONSENT Procedure/Treatment RECORD Social History Tobacco Use Types Packs/Day Years Used Date Smoking Tobacco: Never Alcohol Use Standard Drinks/Week Comments No 0 (1 standard drink = 0.6 oz pure alcoho l) Sex Assigned at Date Recorded Male 08/06/2021 5:59 PM CDT documented as of this encounter Progress Notes Interface, In Chrtscr And Scan - 04/07/2010 1:14 PM CDT documented in this encounter Plan of Treatment Not on filedocumented as of this encounter Visit Diagnoses Not on filedocumented in this encounter Care Teams Human Resources Temp Relationship Specialty Start Date End Date Unassigned, Provider PCP - General 11/28/01 05/21/[address] [place] [id number] documented as of this encounter
--- OUTSIDE RECORDS SUMMARY | 2022-06-20 02:38 | XMS_ITS | Encounter Summary ---
:1945 [facility] Address [address] [place] [address] Care Team Providers Name Role Phone Unassigned, Provider Primary Care Provider Unavailable Reason for Visit Reason Comments Consult, New Patient Spinal Tumor Encounter Details Date Type Department Care Team Description 03/27/2010 Office Visit Specialty Center Garry Neff ndymoma (Primary [facility] NeuroSurgery X, Dx) [address] [place] [address] [place], [place] [phone] (Wo rk) Social History Tobacco Use Types Packs/Day Years Used Date Smoking Tobacco: Never Alcohol Use Standard Drinks/Week Comments Not Asked 0 (1 standard drink = 0.6 oz pure alcoho l) Sex Assigned at Date Recorded Male 08/06/2021 5:59 PM CDT documented as of this encounter Last Filed Vital Signs Vital Sign Reading Time Taken Comments Blood Pressure 122/82 03/27/2010 3:32 PM CDT Pulse 64 03/27/2010 3:32 PM CDT Temperature 36 ??C (96.8 ??F) 03/27/2010 3:32 PM CDT Respiratory Rate 20 03/27/2010 3:32 PM CDT Oxygen Saturation - - Inhaled Oxygen Concentration - - Weight - - Height - - Body Mass Index - - documented in this encounter Patient Instructions Patient InstructionsSelene Johnson - 03/27/2010 5:55 PM CDT Neurosurgery[facility]Spine Clinic Patient Instructions You will be scheduled for surgery with Dr. Garry Neff. We will call you with the date and time tomorrow: You need to do the following this week Stop all herbal supplements 14 days prior to surgery. Stop all aspirin, Ibuprofen, and all blood thinning medications 7 days prior to surgery. No coumadin starting today-please verify with your primary care provider The dose of enoxaparin starting tomorrow-this should be held the day before surgery Schedule a pre operative physical with your primary care physician 30 days prior to surgery. Labs will be drawn at that appointment. Fax the pre-op to Jennifer at [phone] Have nothing to eat or drink starting at midnight the day of surgery. Scrub surgical site the evening prior to your surgery. Refer to surgery packet for instructions. Day of surgery, arrive at [facility] on 3rd Floor 2 hours prior to surgery. Please contact your insurance provider to verify coverage for coverage. Review your surgery packet. Follow up with Dr. Garry Neff this will be addressed after surgery If tests were ordered, they will be reviewed at your next office visit. Please allow 10-14 days for forms to be completed and 2-3 business days for medication refills. Please call the Neurosurgery/Spine Clinic at [phone] with any further questions or concerns. documented in this encounter Progress Notes Garry Neff - 04/12/2010 8:15 AM CDT R Programmer, Lucy Clemente - 03/27/2010 4:23 PM CDT This is a consult dictation on Carl Cullen is a 64 yr old male Date of : 1945 Primary Care Physician: Dr. Loretta Mcmahan Referring Physician: Dr. Yris Brownlee Chief Complaint: Thoracic spinal cord tumor Carl Cullen is a 64 yr old male who was referred by Dr. 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 In 1999 pt was experiencing paresthesias of his right LE and workup showed a tumor in his thoracic spine and his first surgery was in May of [address] Luan Glasgow. Post operatively pt states he lostsome motor capabilities in LLE and lost peripheral sensation in RLE. The tumor continued to grow andpt needed a second surgery was in July [...] can feel his bowels come, no urgency. Anesthesia Hx: yes general and no problems Past Medical Hx: 1. Hx of DVT, on coumadin 2. HTN 3. Dyslipidemia Allergies: Review of patient's allergies indicates no known allergies. Current outpatient prescriptions Medication Sig ??? atorvastatin (LIPITOR) 40 MG [...] and 1& 1/2 tablets all other days. Past Surgical Hx: as stated above and 1. Appendectomy 2. 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 Tobacco Use: Never ??? Alcohol Use: Not on file Family hx: noncontributory Review of Symptoms: As stated in HPI and rest of ROS is negative Physical Examination: BP 122/82 Pulse 64 Temp(Src) 96.8 ??F (36 ??C) (Oral) Resp 20 General: in no acute distress. Alert and oriented x 3, fluent and appropriate HEENT: head normocephalic; PERRLA, sclera clear. Trachea is midline. No appreciable thyroidmegaly noted. Speech: clear Respiratory: Breathing unlabored Abdomen: soft and nondistended Cranial Nerves CN II - PERRLA bilaterally; Visual kc intact, fundoscopic exam not done and visual acuity not tested CN III - Medial rectus, adduction of eyes intact CN IV - EOM intact bilaterally CN V - Facial sensation intact CN - Lateral rectus, abduction of eyes intact CN VII - Face is symmetric, no facial droop CN VIII - Hearing intact CN IX/X - gag reflex intact, swallowing intact, no hoarsness noted, palatal elevation intact CN XI - Shoulder shrug intact, pt able to turn head against resistance CN XII - Tongue midline with protrusion Neck: Cervical ROM full with no tenderness. Lhermitte: negative; Spurling negative - no radiculopathy with lateral flexion and rotation of neck Back: Gait: Pt is wheelchair bound, he transfers himself in and out of wheelchair Atrophic skin around incision Reflexes: L UE Triceps 1+, Biceps 1+, Brachioradialis 1+ R UE Triceps 1+, Biceps 1+, Brachioradialis 1+ L LE Patellar absent, Achilles absent R LE Patellar absent, Achilles absent Pino's negative bilaterally. Manual Motor Testing Upper Extremity C5 - Shoulder abduction/ flexion of elbow R: 5 L: 5 C6 - Wrist extension R: 5 L: 5 C7 - Extension of elbow/ wrist flexors R: 5 L: 5 C8 - Finger flexors R: 5 L: 5 T1 - Finger abduction/adduction R: 5 L: 5 Manual Motor Testing Lower Extremity T12-L3 hip flexors/knee extension/hip adductor R: 0 L: 0 L4 - Plantar dorsiflexion + inversion/foot drop R: 0 L: 0 L5 - EHL/walk on heels(EDL/B) R: 0 L: 0 S1 - foot evertors/plantar flexion R: 0 L: 0 Sensation is diminished to pinprick past T3 or T4. Vascular: pulses palpable, present, and normal Skin: Warm to touch to bilateral upper/lower extremities. No skin rashes or lesions noted Imaging Studies: MRI: compared to August 2009 MRI, larger spinal cord tumor behind T1 with significant cord compression. Assessment: Ependymoma Plan: Patient was seen in collaboration with Dr. Neff and myself. Dr. Neff discussed the plan in full and reviewed the current imaging with patient. Discussed with pt and his that surgery will not cure this tumor, we do recommend debulking the tumor then we will order a consult from Oncology and pt might possibly need to go through chemo. During surgery we do not want to cut or damage the cord or a nerve but we will be as aggressive as possible. Surgical risks were discussed in full, there is a 10-20% chance of a CSF leak, 5-10% risk of infection and if so we might need a muscle flap to help heal with the infection. There is the possibility ofa syrinx and if so we will place a shunt. Pt is on coumadin for his hx of DVT following a baclofen pump insertion in 2006, we advised pt to not take coumadin tonight and f/u with primary tomorrow to bridge with lovenox prior to surgery. Pt advised not to take lovenox the day before surgery and we will not be restarting it until day 3-5 post op. Pt to f/u primary for clearance. We will schedule surgery for next week. We would recommend after surgery ordering a lumbar MRI because ependymomas do have the tendency to seed. The patient is in agreement with plan and has no further questions at this time. Pt is to call the care team with any questions or concerns. Pt will f/u with Dr. Neff at [facility] day of surgery or sooner if questions or concerns. Total time spent was 60 minutes of which more than 50% where used in counseling. Lucy Parker PA-C Lucy Parker - 03/27/2010 4:13 PM CDT documented in this encounter Nursing Notes 03/27/2010 3:20 PM CDT >> Mary East MA Stdnt Mon March 27, 2010 3:54 PM lower back pain rates 5/10. documented in this encounter Plan of Treatment Not on filedocumented as of this encounter Visit Diagnoses Diagnosis Ependymoma ([facility]) - Primary Malignant neoplasm of brain, unspecified site documented in this encounter Care Teams [employer] Weapon System Operator Relationship Specialty Start Date End Date Unassigned, Provider PCP - General 11/28/01 05/21/[address] [place] [id number] documented as of this encounter
--- OUTSIDE RECORDS SUMMARY | 2022-06-20 02:38 | XMS_ITS | Encounter Summary ---
:1945 Author Organization [facility] Address [address] [place] [address] Care Team Providers Name Role Phone Unassigned, Provider Primary Care Provider Unavailable Encounter Details Date Type Department Care Team Description 09/02/2009 Orders Only External to Unknown, Physici an [address] [place], [place] [id number] (Wo rk) Social History Tobacco Use Types Packs/Day Years Used Date Smoking Tobacco: Never Assessed Sex Assigned at Date Recorded Male 08/06/2021 5:59 PM CDT documented as of this encounter Procedure Notes External, Provider - 09/02/2009 12:00 AM CDTAssociated Order(s): MRI SPINE--SCAN documented in this encounter Plan of Treatment Not on filedocumented as of this encounter Procedures Procedure Name Priority Date/Time Associated Diagnosis Comme nts MRI SPINE--SCAN 09/02/2009 12:00 AM Resul ts for this CDT procedure are i n the results section. documented in this encounter Results MRI SPINE--SCAN (09/02/2009 12:00 AM CDT) Anatomical Region Laterality Modality Other Specimen (Source) Anatomical Location Collection Method / Collectio n Time Received Time / Laterality Volume 09/02/2009 Narrative 09/02/2009 12:00 AM CDT This result has an attachment that is no t available. Ordered by an unspecified provider. Transcriptions External, Provider - 09/02/2009 12:00 AM CDT Physician Unknown DUMMY/OTHER/AR documented in this encounter Visit Diagnoses Not on filedocumented in this encounter Care Teams Talent Analyst Relationship Specialty Start Date End Date Unassigned, Provider PCP - General 11/28/01 05/21/[address] [place] [id number] documented as of this encounter
--- OUTSIDE RECORDS SUMMARY | 2022-06-20 02:38 | XMS_ITS | Encounter Summary ---
:1945 Author Organization [facility] Address [address], [place] [address] Care Team Providers Name Role Phone Unassigned, Provider Primary Care Provider Unavailable Encounter Details Date Type Department Care Team Description 04/05/2010 Surgery RH Operating Room Maurice Baron, FUSION APPROACH (STAND 640 Александр Duarte MD ALONE) THORACIC AND/[place] [address] LUMBAR POSTERIOR [phone] [place], [place] [address] (Wo rk) Social History Tobacco Use Types Packs/Day Years Used Date Smoking Tobacco: Never Alcohol Use Standard Drinks/Week Comments No 0 (1 standard drink = 0.6 oz pure alcoho l) Sex Assigned at Date Recorded Male 08/06/2021 5:59 PM CDT documented as of this encounter Last Filed Vital Signs Vital Sign Reading Time Taken Comments Blood Pressure 133/91 04/05/2010 8:10 AM CDT Pulse 80 04/05/2010 8:10 AM CDT Temperature 36.3 ??C (97.4 ??F) 04/05/2010 8:10 AM CDT Respiratory Rate 16 04/05/2010 8:10 AM CDT Oxygen Saturation 98% 04/05/2010 8:10 AM CDT Inhaled Oxygen Concentration - - Weight 104.3 kg (230 lb) 04/05/2010 8:10 AM CDT Height 177.8 cm (5' 10) 04/05/2010 [...] from the original note were not included. [address] [place] [address] Discharge Instructions for: Carl Cullen Thank you for choosing [facility] as your hospital. A copy of [...] additional information about your medications, visit this [employer] website, [email or web address]. Current Discharge Medication List START taking these [...] for Stopping: Designated Pharmacy for Discharge Medications: [facility] If you were taking a medication [...] of breath Community Resources NONE Contact Information [address] [address] For questions about your discharge instructions call the nursing unit : [phone] Emergency & Urgently Needed Care: For emergencies call 911 and/or get medical help right away. If you are a [facility] member and have medical needs after clinic hours you may call the CareLineat [phone] or . All medical devices (telemetry/IV/etc) unless otherwise ordered, have been removed before discharge. Smoking and second-hand smoke exposure: Smoking damages blood vessels, reduces the oxygen in your blood and makes your heart beat too fast. If you smoke you should quit. Everyone should avoid second- hand smoke. If you would like further assistance after your discharge, please contact [phone] or visit www.[employer] can offer further [...] weight will also be followed by the Timber Appraiser when you go in for your treatment. We hope you had a positive experience and that you can definitely recommend [facility] to yourfamily and friends. You???ll be receiving a survey in the mail in about 2 weeks and we look forward to hearing your feedback. When leaving your room at discharge, please stop at the nursing unit desk to check out. I understand my discharge instructions: Carl Martinegele (or Automobile Contract Clerk) documented in this encounter Medications at Time [...] Linda Zuniga - 04/06/2010 10:53 AM CDT [facility] Discharge Note - Nursing Admission Date/Time: [...] Saturday at 12:30, he will arrive at [facility] at 10:30 They are aware he will need a Hibiclens wash the night and am prior to OR They also have Bactroban ointment, no questions on directions They have the clinic number if nay questions arise Plan: Discharge home today OR on Saturday at 12:30 Geetha Osuna RN Neurosurgery Nurse Clinician [phone] Radha Casper - 04/06/2010 5:42 AM CDT [facility] Progress Note (Nursing) Identify/Problem(s): S/P [...] Amanda Lindsay - 04/05/2010 10:38 PM CDT [facility] Patient's Valuables At Admission Patient Name: Carl Cullen Money Paper $: 0 Coins $: 0 Disposition of Money: Not Applicable Checkbook Checkbook: No Credit Cards/Licenses Name of Credit Cards: 0 Number of Credit Cards: 0 Social Security Card: No Passport: No Drivers' License: No Government ID: No Disposition of Cards/Licenses: Not Applicable Jewelry Jewelry: No Description of Jewelry: 0 Watch Watch: No [place] #: 0 Items Belonging to Other People Items Belonging to Other People: No No items were sent to the Freel[facility] Translator's Office. I understand that I assume full responsibility for all clothing, personal items, or valuables retained by me in my hospital room. Any unclaimed personal items deposited into the custody of the hospital will be disposed of by the hospital if they are not claimed within 180 days of discharge. Patients' Signature Witness Roofer Helper Vinyl Coating Automobile Contract Clerk's Signature Witness (Print this note to be included in the patient valuables pouch.) I have received all of my belongings at discharge: Patient Signature: Date: Staff Signature: Date: --- End of Report --- Marimar Tomas, PharmD - 04/05/2010 8:03 PM CDT [facility] Clinical Pharmacy Medication Reconciliation Note Medication History: Medications marked Taking as of 04/05/10 encounter (Hospital Encounter) with MAURICE BARON: atorvastatin [...] PHARMACIST NAME: Marimar Tomas PHARMD Phone/Pager #: [phone] --- End of Report --- Radha Bower - 04/05/2010 7:34 PM CDT 1830- arrived to unit from IR , alert and oriented. Pt does straight cath himself, right groin CDI,latest vs BP 146/90 Pulse 108 Temp(Src) 97.4 ??F (36.3 ??C) (Oral) Resp 17 Ht 5' 10 (1.778 m) Wt 104.327 kg (230 lb) SpO2 97% Martha Thomas - 04/05/2010 4:45 PM CDT [facility] PM&R Date of service: 04/05/2010 Diagnosis: No [...] 98 136/92 mmHg 20 97 % - 05/26/10 1635 - - - - 93 144/85 [...] Last change on 03/09/2010 Pump serial number: [id number] Infusion drug: Baclofen Concentration: 1,000 mcg/ml Infusion mode: simple continuous Dose per day: baclofen 225.6 mcg/day [place] volume 6.2 ml Low reservoir alarm volume [...] or questions. Thank you, Martha South MD [phone] --- End of Report --- Sayra Renteria [...] Donnie Bean - 04/05/2010 5:39 PM CDT [facility] Radiology Procedure Note Radiologist: Donnie Bean MD [...] saturday. Report completed by Donnie Bean MD [facility], PROVIDER - 04/05/2010 12:00 AM CDTAssociated Order(s): EKG IP; EKG IP documented in this encounter OR Notes H&P - [facility], Provider - 03/29/2010 12:00 AM CDT documented in this encounter Miscellaneous Notes Media - [facility] PROVID[facility] - 04/25/2010 12:00 AM CDT Media - [facility], PROVIDER - 04/06/2010 12:00 AM CDT Media - [facility] PROVID[facility] - 04/05/2010 12:00 AM CDT Media - [facility] PROVID[facility] - 04/05/2010 12:00 AM CDT documented [...] Organization Address City/State/ZIP Code Phon e Number [address] [address] [place], [place] [phone] IR SPINAL SELECT EACH VESSEL (04/05/2010 5:48 [...] this recurrence early in the coming week. [facility] that we perform a spinal [...] set that was exchanged for a 5 Setswana sheath. A 5 [facility] C2 catheter was then advanced over [...] set that was exchanged for a 5 Setswana sheath. A 5 [facility] C2 catheter was then advanced over [...] available may b e helpful. Procedure Note SilvanoRashawnyesi Clemente - 04/05/2010 MRI CERVICAL, THORACIC AND LUMBAR [...] Organization Address City/State/ZIP Code Phon e Number [address] [address] [place], [place] [phone] BASIC METABOLIC PANEL (04/05/2010 10:52 AM CDT) [...] Maurice Baron MD LAB_1 Performing Organization Address [facility] Phon e Number [address] [address] [place], [place] [phone] ABO Rh & Antibody Screen (Type & Screen) (04/05/2010 8:29 AM CDT) [facility] gist Method Time Signature Crossmatch 04/08/2010 [facility] Expires ABO/RH(D) A NEGATIVE [facility] Antibody NEGATIVE [facility] Screen Specimen Anatomical Collection Method Collection Time Receive d Time (Source) Location / / Volume Laterality 04/05/2010 8:29 AM 0 8:37 CDT AM CDT Authorizing Provider Result Yuliet Baron MD LAB_1 Performing Organization Address [facility] Phon e Number [address] [address] [place], [place] [phone] ABO/RH(D) RETYPE (04/05/2010 8:27 AM CDT) P athologist Signature ABO/RH(D) A NEGATIVE [facility] Specimen Anatomical Collection Method Collection Time Receive d Time (Source) Location / / Volume Laterality 04/05/2010 8:27 AM 0 8:55 CDT AM CDT Authorizing Provider Result Yuliet Baron MD LAB_1 Performing Organization Address [facility] Phon e Number [address] [address] [place], [place] [phone] aPTT (Activated Partial Thromboplastin Time) (04/05/2010 8:27 AM CDT) P athologist Signature PTT 26.0 24.0 - 37.0 [facility] sec Specimen Anatomical Collection Method Collection Time Receive d Time (Source) Location / / Volume Laterality 04/05/2010 8:27 AM 0 8:39 CDT AM CDT Authorizing Provider Result Yuliet Baron MD LAB_1 Performing Organization Address City/[facility]/ZIP [facility] Phon e Number [address] [address] [place], [place] [phone] INR/Protime (PT/INR) (04/05/2010 8:27 AM CDT) P athologist Signature Protime 12.3 12.0 - 14.5 [facility] sec INR 0.9 [facility] Specimen Anatomical Collection Method Collection Time Receive d Time (Source) Location / / Volume Laterality 04/05/2010 8:27 AM 0 8:39 CDT AM CDT Maurice Baron MD LAB_1 Performing Organization Address [facility] Phon e Number [address] [address] [place], [place] [phone] EKG IP (04/05/2010 12:00 AM CDT) Specimen (Source) Anatomical Location Collection Method / Collectio n Time Received Time / Laterality Volume 04/05/2010 Narrative This result has an attachment that is no t available. Transcriptions [facility], PROVIDER - 04/05/2010 12:00 AM CDT Provider [facility] EKG documented in this encounter Visit Diagnoses Diagnosis 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, unspecified site Spasticity Abnormal involuntary movements Initial Assessments - Amanda Lindsay - 04/05/2010 11:17 PM CDT [facility] Med-Surg / ICU / Rehab / Burn Nursing Initial Assessment Note GENERAL INFORMATION/PATIENT IDENTIFICATION/HISTORY Actual Arrival Date on Unit: 04/05/10 Actual Arrival Time on Unit: 1800 Patient a transfer from another hospital for trauma?: No Primary Care Physician or Clinic: Dr. Mcmahan at [facility] in [place], [place] Patient Identity Confirmed By: Full name including last, first, and middle;Birthdate Source of Identifying Information: Patient;Family Person (first/last name/phone number) who can help make medical decisions or help in care after hospitalization?: Heather voelizele, 1-2 other people (first/last name) you consider [...] will continue to assess andmake appropriate referrals/interventions PSYCHOSOCIAL/SPIRITUAL/MORMONISM/CULTURAL/ABUSE/CHEMICAL Suicide Health Inventory Do you currently have [...] Lines & Tubes: 1 Medications (CV or ANODE WORKER): 3 Falls Risk Score: (0-4 Low) (5-10 [...] baclofen (aka LIORESAL) tablet 20 mg (CANCELED) 344 (Given - Provider: Radha Casper) 20 mg, Oral, BID, First dose on Sat04/06/10 at 0400, Until Disco ntinued citalopram (aka CELEXA) tablet 40 mg (CANCELED) 1900 (Refused - Provider: Radha Casper - Comment: [...] 200 mg (CANCELED) 1999 (Given - Provider: Radha [...] on Sat04/05/10 at 1999, Until Disco ntinued midazolam (aka VERSED) oral liquid 5 mg (COMPLETED) 131 (Given - Provider: Jennifer Samaniego) 5 mg, [...] Oral, QID, First dose on Sat04/05/10 at 2000, Until Disc ontinued trimethoprim (aka TRIMPEX) tablet [...] Augie Campbell, VALERIE)1606 (Given - Provider: Augie Campbell RN)1705 (Given during Procedure - Provider: Royer Garcia) [...] Radha Casper) Topical, TID PRN, Starting [place]ina 5/27/10 at 0318, Until Discontinu ed, Itching midazolam (aka VERSED) injection 0.5-1.5 mg (CANCELED) 1600 (Given - Provider: Augie Campbell, RN)1603 (Given - Provider: Augie Campbell, RN)1606 (Given - Provider: Augie Campbell, RN)1629 (Given - Provider: Augie Campbell, RN)1713 (Given during Procedure - Provider: Royer Garcia) 0.5-1.5 mg, IV, PRN WITH PROCEDURES, Sta rting 04/05/10 at 1554, Until Discontinued, Procedure 1742 (Given during Procedure - Provider: Royer Garcia) documented in this encounter Care Teams Tree Worker Relationship Specialty Start Date End Date Unassigned, Provider PCP - General 11/28/01 05/21/[address] [place] [address] documented as of this encounter
--- OUTSIDE RECORDS SUMMARY | 2022-06-20 02:38 | XMS_ITS | Encounter Summary ---
:1945 Author Organization [facility] Address [address] [place] [address] Care Team Providers Name Role Phone Unassigned, Provider Primary Care Provider Unavailable Encounter Details Date Type Department Care Team Description 03/29/2010 Orders Only External to Unknown, Physici an [address] [place], [place] [phone] (Wo rk) Social History Tobacco Use Types Packs/Day Years Used Date Smoking Tobacco: Never Alcohol Use Standard Drinks/Week Comments Not Asked 0 (1 standard drink = 0.6 oz pure alcoho l) Sex Assigned at Date Recorded Male 08/06/2021 5:59 PM CDT documented as of this encounter Procedure Notes External, Provider - 03/29/2010 12:00 AM CDTAssociated Order(s): X-RAY CHEST External, Provider - 03/29/2010 12:00 AM CDTAssociated Order(s): ECG TRACING [facility], Provider - 03/29/2010 12:00 AM CDTAssociated Order(s): ECG TRACING documented in this encounter Plan of Treatment Not on filedocumented as of this encounter Procedures Procedure Name Priority Date/Time Associated Diagnosis Comme nts X-RAY CHEST 03/29/2010 12:00 AM Results for this CDT procedure are i n the results section . ECG TRACING 03/29/2010 12:00 AM Results for this CDT procedure are i n the results section . ECG TRACING 03/29/2010 12:00 AM Results for this CDT procedure are i n the results section . documented in this encounter Results X-RAY CHEST (03/29/2010 12:00 AM CDT) Anatomical Region Laterality Modality Other Specimen (Source) Anatomical Location Collection Method / Collectio n Time Received Time / Laterality Volume 03/29/2010 Narrative 03/29/2010 12:00 AM CDT This result has an attachment that is no t available. Ordered by an unspecified provider. Transcriptions External, Provider - 03/29/2010 12:00 AM CDT Physician Unknown DUMMY/OTHER/AR ECG TRACING (03/29/2010 12:00 AM CDT) Specimen (Source) Anatomical Location Collection Method / Collectio n Time Received Time / Laterality Volume 03/29/2010 Narrative 03/29/2010 12:00 AM CDT This result has an attachment that is no t available. Ordered by an unspecified provider. Transcriptions [facility], Provider - 03/29 12:00 AM CDT Physician Unknown EKG ECG TRACING (03/29/2010 12:00 AM CDT) Specimen (Source) Anatomical Location Collection Method / Collectio n Time Received Time / Laterality Volume 03/29/2010 Narrative 03/29/2010 12:00 AM CDT This result has an attachment that is no t available. Ordered by an unspecified provider. Transcriptions External, Provider - 03/29/2010 12:00 AM CDT Physician Unknown EKG documented in this encounter Visit Diagnoses Not on filedocumented in this encounter Care Teams Quality Intern Relationship Specialty Start Date End Date Unassigned, Provider PCP - General 11/28/01 05/21/[address] [place] [address] documented as of this encounter
--- OUTSIDE RECORDS SUMMARY | 2022-06-20 02:38 | XMS_ITS | Encounter Summary ---
:1945 Author Organization [employer] Address [address] [place] [address] Care Team Providers Name Role Phone Unassigned, Provider Primary Care Provider Unavailable Encounter Details Date Type Department Care Team Description 04/05/2010 Imaging [facility] [address] [place] [address] Social History Tobacco Use Types Packs/Day Years [...] Diagnosis Comme nts MR LUMBAR SPINE Routine 04/05/2010 3:43 PM Result s for this W/WO IV CONT CDT procedure are i n the results section. documented in this encounter Results MR LUMBAR SPINE WITH/WITHOUT CONTRAST (04/05/2010 3:43 [...] e helpful. Lucy Colmenares PA-C RAD MRI documented in this encounter Visit Diagnoses Not on filedocumented in this encounter Care Teams Molasses Coloring Operator Relationship Specialty Start Date End Date Unassigned, Provider PCP - General 11/28/01 05/21/[address] [place] [address] documented as of this encounter
--- OUTSIDE RECORDS SUMMARY | 2022-06-20 02:38 | XMS_ITS | Encounter Summary ---
:1945 Author Organization [facility] Address [address] [place] [address] Care Team Providers Name Role Phone Unassigned, Provider Primary Care Provider Unavailable Encounter Details Date Type Department Care Team Description 04/05/2010 [facility] [address] [place] [address] Social History Tobacco Use Types Packs/Day Years [...] Diagnosis Comme nts MR THORACIC SPINE Routine 04/05/2010 3:42 PM Resu lts for this W/WO IV CONT CDT procedure are i n the results section. documented in this encounter Results MR THORACIC SPINE WITH/WITHOUT CONTRAST (04/05/2010 3:42 [...] spinal cord. 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 The lesion measures [...] on filedocumented in this encounter Care Teams Digital Sales Planner Relationship Specialty Start Date End Date Unassigned, Provider PCP - General 11/28/01 05/21/[address] [place] [address] documented as of this encounter
--- OUTSIDE RECORDS SUMMARY | 2022-06-20 02:38 | XMS_ITS | Encounter Summary ---
:1945 Author Organization [employer] Address [address] [place] [address] Care Team Providers Name Role Phone Unassigned, Provider Primary Care Provider Unavailable Encounter Details Date Type Department Care Team Description 04/05/2010 Imaging [facility] [address] [place] [address] Social History Tobacco Use Types Packs/Day Years Used Date Smoking Tobacco: Never Alcohol Use Standard Drinks/Week Comments No 0 (1 standard drink = 0.6 oz pure alcoho l) Sex Assigned at Date Recorded Male 08/06/2021 5:59 PM CDT documented as of this encounter Plan of Treatment Not on filedocumented as of this encounter Procedures Procedure Name Priority Date/Time Associated Diagnosis Comme nts MR CERVICAL SPINE Routine 04/05/2010 3:41 PM Resu lts for this W/WO IV CONT CDT procedure are i n the results section. documented in this encounter Results MR CERVICAL SPINE WITH/WITHOUT CONTRAST (04/05/2010 3:41 [...] filedocumented in this encounter Care Teams Assembler Trim Relationship Specialty Start Date End Date Unassigned, Provider PCP - General 11/28/01 05/21/[address] [place] [address] documented as of this encounter
--- OUTSIDE RECORDS SUMMARY | 2022-06-20 02:38 | XMS_ITS | Encounter Summary ---
:1945 Author Organization [facility] Address [address], [place] [address] Care Team Providers Name Role Phone Unassigned, Provider Primary Care Provider Unavailable Encounter Details Date Type Department Care Team Description 03/09/2010 Orders Only External to KATHLEEN Wyatt, Guy suarez MD [address] [place], [place] [address] Social History Tobacco Use Types Packs/Day Years Used Date Smoking Tobacco: Never Assessed Sex Assigned at Date Recorded Male 08/06/2021 5:59 PM CDT documented as of this encounter Procedure Notes External, Provider - 03/09/2010 12:00 AM CDTAssociated Order(s): MRI SPINE--SCAN External, Provider - 03/09/2010 12:00 AM CDTAssociated Order(s): MRI SPINE--SCAN documented in this encounter Plan of Treatment Not on filedocumented as of this encounter Procedures Procedure Name Priority Date/Time Associated Diagnosis Comme nts MRI SPINE--SCAN 03/09/2010 12:00 AM Resul ts for this CDT procedure are i n the results section. documented in this encounter Results MRI SPINE--SCAN (03/09/2010 12:00 AM CDT) Anatomical Region Laterality Modality Other Specimen (Source) Anatomical Location Collection Method / Collectio n Time Received Time / Laterality Volume 03/09/2010 Narrative This result has an attachment that is no t available. Transcriptions External, Provider - 03/09/2010 12:00 AM CDT External, Provider - 03/09/2010 12:00 AM CDT Guy Wyatt MD DUMMY/OTHER/AR documented in this encounter Visit Diagnoses Not on filedocumented in this encounter Care Teams Spring Upholsterer Relationship Specialty Start Date End Date Unassigned, Provider PCP - General 11/28/01 05/21/[address] [place] [address] documented as of this encounter
--- OUTSIDE RECORDS SUMMARY | 2022-06-20 02:38 | XMS_ITS | Encounter Summary ---
:1945 Author Organization [facility] Address [address], [place] [address] Care Team Providers Name Role Phone Unassigned, Provider Primary Care Provider Unavailable Encounter Details Date Type Department Care Team Description 03/16/2010 Correspondence None Inactive, Provider OBSERVA TION ORDERS Social History Tobacco Use Types Packs/Day Years Used Date Smoking Tobacco: Never Assessed Sex Assigned at Date Recorded Male 08/06/2021 5:59 PM CDT documented as of this encounter Progress Notes Interface, In Chrtscr And Scan - 04/11/2010 2:09 PM CDT documented in this encounter Plan of Treatment Not on filedocumented as of this encounter Visit Diagnoses Not on filedocumented in this encounter Care Teams Die Attaching Machine Tender Relationship Specialty Start Date End Date Unassigned, Provider PCP - General 11/28/01 05/21/[address] [place] [address] documented as of this encounter
--- OUTSIDE RECORDS SUMMARY | 2022-06-20 02:38 | XMS_ITS | Encounter Summary ---
:1945 Author Organization [facility] Address [address], [place] [address] Care Team Providers Name Role Phone Unassigned, Provider Primary Care Provider Unavailable Reason for Visit Reason Onset Date Comments QUESTIONS, GENERAL 03/28/2010 Encounter Details Date Type Department Care Team Description 03/28/2010 Telephone Specialty Center [address], QUESTIONS, GENERAL [facility]. [address] [place] [address] [place] [address] [phone] (Wo rk) Social History Tobacco Use Types Packs/Day Years Used Date Smoking Tobacco: Never Alcohol Use Standard Drinks/Week Comments Not Asked 0 (1 standard drink = 0.6 oz pure alcoho l) Sex Assigned at Date Recorded Male 08/06/2021 5:59 PM CDT documented as of this encounter Nursing Notes Geetha Osuna - 04/03/2010 12:53 PM CDT Spoke with patients . His surgery has been moved up due to a cancellation. Surgery will be 04/05 at 11:30. She is aware they should arrive by 10am, and he will get his last Lovenox dose this evening. They will call with any questions. Geetha Osuna RN Neurosurgery Nurse Clinician [phone] Sweetie Sterling - 03/31/2010 10:17 AM CDT Patient is calling again for surgery date. Patient is concerned about amount of lovenox he has or will need. Giselle Vila - 03/29/2010 11:22 AM CDT Pt's called again to speak to Dr. Neff's care team about scheduling surgery for the pt. Please call her back with information. Thanks. Giselle Vila 03/29/2010, 11:22 AM Giselle Vila - 03/28/2010 4:41 PM CDT Pt's , Heather left a message on our voicemail requesting a call back from Dr. Neff's care team about scheduling surgery for the pt. Please call Heather back with information. Thanks. Giselle Vila 03/28/2010, 4:41 PM documented in this encounter Plan of Treatment Not on filedocumented as of this encounter Visit Diagnoses Not on filedocumented in this encounter Care Teams Casting And Pasting Supervisor Relationship Specialty Start Date End Date Unassigned, Provider PCP - General 11/28/01 05/21/[address] [place] [address] documented as of this encounter
== END 2022-06-13 14:55 | disposition home or self-care (01) ==
LOC: WOUND 14:56
PROVIDERS: Visit Provider Surgery
DX: L89.42 Pressure ulcer of contiguous site of back, buttock and hip, stage 2 (principal); G82.21 Paraplegia, complete; Z86.718 Personal history of other venous thrombosis and embolism; Z79.01 Long term (current) use of anticoagulants
CPT/HCPCS: 11042

== ENCOUNTER 2022-07-04 14:59 | Outpatient (CLI) | payer MEDICARE, OTHER, SELFPAY ==
--- OUTSIDE RECORDS SUMMARY | 2022-07-04 15:02 | XMS_ITS | Encounter Summary ---
:1945 Author Organization [facility] Address [address] [place] [address] Care Team Providers Name Role Phone Franklin Squires MD Primary Care Provider Reason for Visit Reason Onset Date Comments Video Visit CANCEL APPOINTMENT 10/18/2021 Patient Cancelled Encounter Details Date Type Department Care Team Description 10/17/2021 Telemedicine [facility] May Randle Encounter s for Neuroscience Center MD Bryn administrative Physical Medicine [address] purposes (Primary Dx) [address] [place] [address] [phone] Social History Tobacco Use Types Packs/Day Years Used Date Smoking Tobacco: Never Smokeless Tobacco: Never Alcohol Use Standard Drinks/Week Comments No 0 (1 standard drink = 0.6 oz pure alcoho l) Sex Assigned at Date Recorded Male 08/06/2021 5:59 PM CDT documented as of this encounter Progress Notes May Randle MD - 10/17/2021 1:15 PM CST The patient cancelled this appointment. GER APPLICATION documented in this encounter Plan of Treatment Not on filedocumented as of this encounter Visit Diagnoses Diagnosis Encounters for administrative purposes - Primary Encounters for unspecified administrativ e purpose documented in this encounter Care Teams Cripple Worker Relationship Specialty Start Date End Date Franklin Squires MD PCP - General Family Practice 03/08/[address] [place] [address] [place] [id number] documented as of this encounter
--- OUTSIDE RECORDS SUMMARY | 2022-07-04 15:02 | XMS_ITS | Encounter Summary ---
:1945 Author Organization [facility] Address [address] [address] Care Team Providers Name Role Phone Franklin Squires MD Primary Care Provider Reason for Referral Procedure/Equipment (Routine) - Incomplete Specialty Diagnoses / Procedures Referred By Contact Refer red To Contact Procedures Zelalem Cohen, DO XR Lumbar Spine AP/Lat [address] [place] [address] Referral ID Status Reason Start Date Expiration Date Visits V isits Requested Authorized [id number] Incomplete 05/29/2016 08/28/2017 1 1 Reason for Visit Reason Comments Revisit Encounter Details Date Type Department Care Team Description 05/29/2016 [facility] Visit [facility] 401 Spin al cord stimulator Interventional Pain status ( Primary Dx) Management [address] [place] [address] Social History Tobacco Use Types [...] patient status. Patient denies: fevers, chills, sweats. Ore Dryer cleaned both incision areas with chloraprep, steristrips intact, no drainage, erythremia, swelling, property underwriter applied new dressing 4x4 gauge and [...] status documented in this encounter Care Teams Is Project Manager Relationship Specialty Start Date End Date Franklin Squires MD PCP - General Family Practice 03/08/[address] [place] [address] documented as of this encounter
--- OUTSIDE RECORDS SUMMARY | 2022-07-04 15:02 | XMS_ITS | Encounter Summary ---
:1945 Author Organization [facility] Address [address], [place] [address] Care Team Providers Name Role Phone Franklin [...] on filedocumented in this encounter Care Teams License Distributor Relationship Specialty Start Date End Date Franklin Squires MD PCP - General Family Practice 03/08/[address] [place], [place] [address] [address] documented as of this encounter
--- OUTSIDE RECORDS SUMMARY | 2022-07-04 15:02 | XMS_ITS | Encounter Summary ---
:1945 Author Organization [facility] Address [address], [place] [address] Care Team Providers Name Role Phone Franklin Squires MD Primary Care Provider Reason for Visit Reason Comments FYI Encounter Details Date Type Department Care Team Description 09/07/2016 Telephone Specialty Center 401 Garry Neff MD FYI NeuroSurgery [address] [place] [address] [place] [address] [phone] Social History Tobacco Use Types Packs/Day Years [...] follow up for December if so this pattern chart writer will need to discuss if we will [...] on filedocumented in this encounter Care Teams Bobbin Winder Tender Relationship Specialty Start Date End Date Franklin Squires MD PCP - General Family Practice 03/08/[address] [place] [address] [place] [address] documented as of this encounter
--- OUTSIDE RECORDS SUMMARY | 2022-07-04 15:02 | XMS_ITS | Encounter Summary ---
:1945 Author Organization [facility] Address [address] [place] [address] Care Team Providers Name Role Phone Franklin Squires MD Primary Care Provider Reason for Visit Reason Comments Consult, New Patient Encounter Details Date Type Department Care Team Description 01/18/2022 Office Visit Garry Bejarano Ependymom a ([facility]) Neuroscience Center MD Jose (Primary Dx) Neurosurgery/Ortho [address] Spine [place], [place] [address] [address] [place] [address] [phone] Social History Tobacco Use Types Packs/Day Years Used Date Smoking Tobacco: Never Smokeless Tobacco: Never Alcohol Use Standard Drinks/Week Comments No 0 (1 standard drink = 0.6 oz pure alcoho l) Sex Assigned at Date Recorded Male 08/06/2021 5:59 PM CDT documented as of this encounter Last Filed Vital Signs Vital Sign Reading Time Taken Comments Blood Pressure 120/63 01/18/2022 12:59 PM COMPRESSOR STATION CHIEF ENGINEER Pulse 87 01/18/2022 12:59 PM COMPRESSOR STATION CHIEF ENGINEER Temperature 36.3 ??C (97.4 ??F) 01/18/2022 12:59 PM COMPRESSOR STATION CHIEF ENGINEER Respiratory Rate - - Oxygen Saturation - [...] your understanding. Please call the Neurosurgery Center [phone] with any further questions or concerns. Thank you for coming to see us today. We are your partner. RESSOR STATION CHIEF ENGINEER documented in this encounter Progress Notes Katerina [...] 2000 S/p resection by Dr. Glasgow at [place] in 05/2000. 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 Osteoporosis night time babysitter wheelchair since 2006 ??? Subdural hematoma, acute [...] 100 mcg by mouth. 02/21/2017: Received from: [facility] ??? furosemide (LASIX) 40 MG tablet Take 40 mg by mouth two times a day. ??? gabapentin (AKA NEURONTIN) 400 MG capsule TAKE 1 CAPSULE THREE TIMES A DAY FOR PAIN 270 Cap 0 ??? HYDROcodone-acetaminophen (NORCO) 10-325 MG tablet Take 1 Tab by mouth. 02/21/2017: Received from: [facility] ??? LORazepam (AKA ATIVAN) 0.5 MG tablet Take 0.5 mg by mouth every 4 hours as needed for Anxiety. ??? Multiple Vitamins-Minerals (CENTRUM SILVER OR) Take 1 Tab by mouth daily. ??? OXYCODONE HCL OR as needed. ??? polyethylene glycol (AKA MIRALAX) packet Take 1 Packet by mouth daily. Indications: [id number] Each 2 ??? Potassium Chloride (KLOR-CON OR) [...] Past Surgical History: Procedure Laterality Date ??? 54647 TOTAL KNEE ARTHROPLASTY right ??? APPENDECTOMY ??? [...] Occupation: [employer] ??? Occupation: [employer] ??? Occupation: retired/disability Tobacco Use ??? Smoking [...] 1 at baseline. Lives with his in [place]. Social Determinants of Health Financial Resource Strain: [...] 5/5 5/5 Hand intrinsics: T1 5/5 5/5 Dice Manager strength: C8 5/5 5/5 Lower extremities: Right [...] site documented in this encounter Care Teams Head Of Maintenance Relationship Specialty Start Date End Date Franklin Squires MD PCP - General Family Practice 03/08/[address] [place] [address] documented as of this encounter
--- OUTSIDE RECORDS SUMMARY | 2022-07-04 15:02 | XMS_ITS | Encounter Summary ---
:1945 Author Organization [facility] Address [address], [place] [address] Care Team Providers Name Role Phone Franklin Squires MD Primary Care Provider Reason for Visit Reason Comments QUESTIONS, GENERAL Encounter Details Date Type Department Care Team Description 05/28/2016 Telephone Specialty Center 401 Zelalem Cohen , QUESTIONS, GENERAL Interventional Pain DO Management [address] [place] [phone] Social History Tobacco Use Types Packs/Day Years Used Date Smoking Tobacco: Never Smokeless Tobacco: Never Alcohol Use Standard Drinks/Week Comments No 0 (1 standard drink = 0.6 oz pure alcoho l) Sex Assigned at Date Recorded Male 08/06/2021 5:59 PM CDT documented as of this encounter Nursing Notes Mireya Gillette RN - 05/28/2016 1:13 PM CDT [employer] spoke to patient and patient Heather States they did speak with Geetha yesterday and adjustments were made, but still having trouble. Message sent to Alvarado at with this update. Patient informed patient and patient a Rep from [employer] will be present for more adjustment if [...] on filedocumented in this encounter Care Teams Commercial Glazier Relationship Specialty Start Date End Date Franklin Squires MD PCP - General Family Practice 03/08/[address] [place] [address] documented as of this encounter
--- OUTSIDE RECORDS SUMMARY | 2022-07-04 15:02 | XMS_ITS | Encounter Summary ---
:1945 Author Organization [facility] Address [address], [place] [address] Care Team Providers Name Role Phone Franklin Squires MD Primary Care Provider Reason for Visit Procedure/Equipment (Routine) - Incomplete Specialty Diagnoses / Procedures Referred By Contact Refer red To Contact Diagnoses Ependymoma ([facility]) Garry Neff MD Procedures CT Thoracic Spine WO IV Cont [address] [place] [address] Referral ID Status Reason Start Date Expiration Date Visits V isits Requested Authorized [id number] Incomplete 08/15/2021 11/14/2022 1 1 Encounter Details Date Type Department Care Team Description 01/18/[address] Garry Neff Ependymoma ([facility]) [address] [place] [address] [address] [facility] [phone] [place] [id number] Social History Tobacco Use Types Packs/Day Years [...] ([facility]) Results for this WO IV CONT BEHAVIORAL GENETICIST procedure are i n the results section. documented in this encounter Results CT Thoracic Spine WO IV Cont (01/18/2022 12:26 PM BEHAVIORAL GENETICIST) Anatomical Region Laterality Modality Spine, T-Spine, Skeletal Computed Tomogr aphy Specimen (Source) Anatomical Collection Method Collection Time Re ceived Time Location / / Volume Laterality 01/18/2022 12:26 PM BEHAVIORAL GENETICIST Narrative 01/18/2022 4:02 PM BEHAVIORAL GENETICIST EXAM: CT THORACIC SPINE WO IV CONT [...] into the lumbar spine potentially beyond the [id number]. No evidence of hematoma or high-grade spinal [...] CT THORACIC SPINE WO IV CONT LOCATION: [facility] DATE/TIME: 01/18/2022 12:26 PM INDICATION: Spinal [...] into the lumbar spine potentially beyond the [id number]. No evidence of hemato ma or high-grade [...] site documented in this encounter Care Teams Typing Office Worker Relationship Specialty Start Date End Date Franklin Squires MD PCP - General Family Practice 03/08/[address] [place] [address] documented as of this encounter
--- OUTSIDE RECORDS SUMMARY | 2022-07-04 15:02 | XMS_ITS | Encounter Summary ---
:1945 Author Organization [facility] Address [address] [address] Care Team Providers Name Role Phone Franklin Squires MD Primary Care Provider Reason for Visit Procedure/Equipment (Routine) - Incomplete Specialty Diagnoses / Procedures Referred By Contact Refer red To Contact Procedures Zelalem Cohen, DO XR Lumbar Spine AP/Lat [address] [place] [address] Referral ID Status Reason Start Date Expiration Date Visits V isits Requested Authorized [id number] Incomplete 05/29/2016 08/28/2017 1 1 Encounter Details Date Type Department Care Team Description 05/29/2016 Imaging [facility] Specialty Breanna ter Radiology [address] [place] [address] Social History Tobacco Use Types [...] on filedocumented in this encounter Care Teams Sloop Captain Relationship Specialty Start Date End Date Franklin Sqiures MD PCP - General Family Practice 03/08/[address] [place] [address] documented as of this encounter
--- OUTSIDE RECORDS SUMMARY | 2022-07-04 15:02 | XMS_ITS | Encounter Summary ---
:1945 Author Organization [facility] Address [address] [address] Care Team Providers Name Role Phone Franklin Squires MD Primary Care Provider Reason for Visit Reason Comments Forms Encounter Details Date Type Department Care Team Description 12/10/2017 Telephone [facility] Neuroscience May [place] MD Forms Center Physical Medi cine [address] [place] [address] [place] [address] [phone] Social History Tobacco Use Types Packs/Day Years Used Date Smoking Tobacco: Never Smokeless Tobacco: Never Alcohol Use Standard Drinks/Week Comments No 0 (1 standard drink = 0.6 oz pure alcoho l) Sex Assigned at Date Recorded Male 08/06/2021 5:59 PM CDT documented as of this encounter Nursing Notes Mandy Montalvo - 12/11/2017 9:37 AM CST Faxed back to [facility] and copy sent to scan in right fax HANDISE SUPPORT ASSOCIATE May Randle MD - 12/11/2017 8:00 AM CST Done. May Randle MD HANDISE SUPPORT ASSOCIATE Kaleigh Shah RN - 12/10/2017 1:51 PM CST [facility] for Battery On desk Kaleigh Shah, RN 12/10/2017, 1:51 PM HANDISE SUPPORT ASSOCIATE documented in this encounter Plan of Treatment Not on filedocumented as of this encounter Visit Diagnoses Not on filedocumented in this encounter Care Teams Speech Teacher Relationship Specialty Start Date End Date Franklin Squires MD PCP - General Family Practice 03/08/[address] [place] [address] documented as of this encounter
--- OUTSIDE RECORDS SUMMARY | 2022-07-04 15:02 | XMS_ITS | Encounter Summary ---
:1945 Author Organization [facility] Address [address], [place] [address] Care Team Providers Name Role Phone Franklin [...] on filedocumented in this encounter Care Teams Aircraft Part Assembler Relationship Specialty Start Date End Date Franklin Squires MD PCP - General Family Practice 03/08/[address] [place], [place] [address]LES [place] [address] documented as of this encounter
--- OUTSIDE RECORDS SUMMARY | 2022-07-04 15:02 | XMS_ITS | Encounter Summary ---
:1945 Author Organization [employer] Address [address], [place] [address] Care Team Providers Name Role Phone Franklin Squires MD Primary Care Provider Reason for Visit Reason Comments Revisit SCS follow up Encounter Details Date Type Department Care Team Description 06/04/2016 Office Visit Specialty Center 401 Spin al cord stimulator Interventional Pain status ( Primary Dx) Management [address] [place] [address] Social History Tobacco Use Types Packs/Day Years [...] so far happy with [employer]. Alvarado with [employer] visited with patient and made some adjustments, patient reportshe is satisfied with adjustments. Patient states he has completed abx, only taking pain medication prn has not been often. Mechanical Assembler removed old dressing, cleaned both incision areas [...] status documented in this encounter Care Teams Property Appraiser Relationship Specialty Start Date End Date Franklin Squires MD PCP - General Family Practice 03/08/[address] [place] [address] documented as of this encounter
--- OUTSIDE RECORDS SUMMARY | 2022-07-04 15:02 | XMS_ITS | Encounter Summary ---
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 [address] [phone] Social History Tobacco Use Types Packs/Day Years [...] and did inform of the plan. This underwriter solicitation director did explain that radiology will call and [...] Spine WO IV Cont (01/18/2022 12:26 PM CONTROL ROOM OPERATOR) Anatomical Region Laterality Modality Spine, T-Spine, Skeletal Computed Tomogr aphy Specimen (Source) Anatomical Collection Method Collection Time Re ceived Time Location / / Volume Laterality 01/18/2022 12:26 PM CONTROL ROOM OPERATOR Narrative 01/18/2022 4:02 PM CONTROL ROOM OPERATOR EXAM: CT THORACIC SPINE WO IV CONT [...] into the lumbar spine potentially beyond the [id number]. No evidence of hematoma or high-grade spinal [...] CT THORACIC SPINE WO IV CONT LOCATION: [facility] DATE/TIME: 01/18/2022 12:26 PM INDICATION: [...] into the lumbar spine potentially beyond the [id number]. No evidence of hemato ma or high-grade [...] site documented in this encounter Care Teams Shotgun Shell Reprinting Unit Operator Relationship Specialty Start Date End Date Franklin Squires MD PCP - General Family Practice 03/08/[address] [place] [address] documented as of this encounter
--- OUTSIDE RECORDS SUMMARY | 2022-07-04 15:02 | XMS_ITS | Encounter Summary ---
:1945 Author Organization [facility] Address [address], [place] [address] Care Team Providers Name Role Phone Franklin Squires MD Primary Care Provider Reason for Visit Reason Comments QUESTIONS, GENERAL Encounter Details Date Type Department Care Team Description 02/25/2018 [facility]phone [facility] Brady Cohen, QUESTIONS, GENERAL Center Pain Manageme nt DO [address] [place] [address] [place], [place] [phone] Social History Tobacco Use Types Packs/Day Years Used Date Smoking Tobacco: Never Smokeless Tobacco: Never Alcohol Use Standard Drinks/Week Comments No 0 (1 standard drink = 0.6 oz pure alcoho l) Sex Assigned at Date Recorded Male 08/06/2021 5:59 PM CDT documented as of this encounter Nursing Notes Paulina Kumari RN - 02/26/2018 11:22 AM CDT [place] confirmed 03/03/18 at 11:30. Patient notified and agreed to plan. Paulina Kumari RN Paulina Kumari RN - 02/26/2018 10:13 AM CDT Verbal ok given from patient to speak with spouse. Patient's states they spoke with Elias at [employer] yesterday regarding patient's stimulator not providing as good of coverage as usual. Requesting clinic visit any day in the next week except 03/04 between 10:30 and 1:30. Message sent to [employer] to requesting visit for patient. Paulina Kumari, RN Marilu Osuna - 02/25/2018 2:20 PM CDT Pt's spouse requesting to speak with nurse states pt's stimulator needs to be reprogrammed please advise. Thanks Marilu Osuna documented in this encounter Plan of Treatment Not on filedocumented as of this encounter Visit Diagnoses Not on filedocumented in this encounter Care Teams Coater Brake Linings Relationship Specialty Start Date End Date Franklin Squires MD PCP - General Family Practice 03/08/[address] [place] [address] [place] [address] documented as of this encounter
--- OUTSIDE RECORDS SUMMARY | 2022-07-04 15:02 | XMS_ITS | Encounter Summary ---
:1945 Author Organization [facility] Address [address], [place] [address] Care Team Providers Name Role Phone Franklin Squires MD Primary Care Provider Reason for Visit Reason Comments Revisit SCS with [place] Encounter Details Date Type Department Care Team Description 03/03/2018 Nursing Visit [facility] Neuroscience Spinal cord stimulator Center Pain Manageme nt status (Primary Dx) [address] [place] [address] Social History Tobacco Use Types Packs/Day Years Used Date Smoking Tobacco: Never Smokeless Tobacco: Never Alcohol Use Standard Drinks/Week Comments No 0 (1 standard drink = 0.6 oz pure alcoho l) Sex Assigned at Date Recorded Male 08/06/2021 5:59 PM CDT documented as of this encounter Progress Notes Beth Jacome, RN - 03/03/2018 11:30 AM CDT Pt and met with [place] Rep Alvarado Hernandez. Happy with adjustments that [...] status documented in this encounter Care Teams Food And Drink Factory Workers Relationship Specialty Start Date End Date rFanklin Squires MD PCP - General Family Practice 03/08/16 [address] [facility] [place] [id number] documented as of this encounter
--- OUTSIDE RECORDS SUMMARY | 2022-07-04 15:02 | XMS_ITS | Encounter Summary ---
:1945 Author Organization [employer] Address [address] [place] [address] Care Team Providers Name Role Phone Franklin Squires MD Primary Care Provider Reason for Visit Reason Comments Other Encounter Details Date Type Department Care Team Description 05/24/2016 Telephone Careline Unassigned, Provider Other [address] [place], [place] [address] [place] [address] Social History Tobacco Use Types Packs/Day Years [...] clinic is the patient normally seen at? [facility]. Situation: Pt had a spinal cord implant today - can he put ice on it? Plan:A nurse will return your call. If your symptoms change for the worse, please call us back [phone]. documented in this encounter Plan of Treatment Not on filedocumented as of this encounter Visit Diagnoses Not on filedocumented in this encounter Care Teams Shoe Cleaner Relationship Specialty Start Date End Date Franklin Squires MD PCP - General Family Practice 03/08/[address] [place] [address] documented as of this encounter
--- OUTSIDE RECORDS SUMMARY | 2022-07-04 15:02 | XMS_ITS | Encounter Summary ---
:1945 Author Organization [facility] Address [address], [place] [address] Care Team Providers Name Role Phone Franklin Squires MD Primary Care Provider Reason for Visit Reason Comments Surgery, Cancel Encounter Details Date Type Department Care Team Description 09/11/2016 Telephone Specialty Center 401 Garry Neff MD Surgery, Cancel NeuroSurgery [address] [place] [address] [place] [address] [phone] Social History Tobacco Use Types Packs/Day Years [...] on filedocumented in this encounter Care Teams Asbestos Shingle Roofer Relationship Specialty Start Date End Date Franklin Squires MD PCP - General Family Practice 03/08/[address] [place] [address] [place] [address] documented as of this encounter
--- OUTSIDE RECORDS SUMMARY | 2022-07-04 15:02 | XMS_ITS | Encounter Summary ---
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 [place], [place] Neurogenic bowel; [place] [address] Neurogenic bladder; [phone] Spasticity; (Work) Autonomic dysfunction; [phone] DM II (diabetes mellitus, type II) (HR); [...] treatment plan is please contact us at [phone] or send us a secure message via [employer]. If you need follow-up in the future, please call [phone] for an appointment. If you cannot get a time that satisfies you, please let us know what times work for you and we will do our best to accommodate you. Thank you for choosing May Randle MD and [facility] Physical Medicine and Rehabilitation. Autonomic dysreflexia??--??SCI [...] cushion. Most of this hospitalization was through [place]. Other hospitalizations have been through [facility] in [place]. He has been diagnosed with diabetes but this is fairly well controlled at this point. At home he has a hospital bed. He has both a manual and power chair. He does take extra-strength Tylenol for pain. Dr. Newby has had him on OxyContin. He gets 45 mg in the morning and 32 in the evening. His chair is managed by [facility] near where they live Per previous is [...] Dr. Cohen. He has had procedures through [facility] including nerve blocks and his notes they [...] years and initially had his rehabilitation at [facility]. At that point he was still [...] Medications Medication Sig Note Dispense Refill ??? kvbmgcqp-zsntoxzwvnpxaio-ocdjojpju-magnesium hydroxide-simethicone (AKA MAGIC MOUTHWASH) suspension Take 5 mL by mouth. 02/21/2017: Received from: [facility] ??? atorvastatin (LIPITOR) 40 MG tablet Take [...] 1 Tab by mouth. 02/21/2017: [facility] ??? cholecalciferol (AKA VITAMIN D3) 1000 UNITS [...] 1 Tab by mouth. 02/21/2017: [facility] ??? HYDROXYZINE HCL OR ??? lidocaine (AKA LIDODERM) 5 % patch Apply 2 Patches to skin . Apply once for up to 12 hrs within a 24 hr period. 60 Patch 1 ??? lidocaine (AKA XYLOCAINE) 5 % ointment Apply to the lower back TID prn 30 g 0 ??? lisinopril (ZESTRIL) 2.5 MG tablet Take 2.5 mg by mouth. 02/21/2017: [facility] ??? LORazepam (AKA ATIVAN) 0.5 MG tablet Take 0.5 mg by mouth every 4 hours as needed for Anxiety. ??? magnesium citrate (MAGNESIUM CITRATE) solution Take 296 mL by mouth once. 4 hours before your procedure ? ? MAGNESIUM CITRATE OR Take 80-300 mL by mouth. 02/21/2017: [facility] ??? Multiple Vitamins-Minerals (CENTRUM SILVER OR) Take 1 Tab by mouth daily. ??? niacin 500 MG tablet Take 1 Tab by mouth daily with breakfast. Indications: High Amount of Cholesterol in the Blood ??? OXYCODONE HCL OR ??? polyethylene glycol (AKA MIRALAX) packet Take 1 Packet by mouth daily. Indications: Qzajcctostro06 Each 2 ??? Potassium Chloride (KLOR-CON OR) Takes 40 meq twice daily ??? raNITIdine (ZANTAC) 150 MG tablet Take 150 mg by mouth. 02/21/2017: [facility] ??? sennosides-docusate sodium (SENNA-DOCUSATE) 8.6-50 MG tablet Take 1 Tab by mouth daily. ??? sennosides-docusate sodium (SENOKOT S) 8.6-50 MG per tablet Take 1 Tablet by mouth two times a day. Can go to 2 bid as needed to make stools looser Indications: Constipation 125 Tablet 11 ??? testosterone (ANDRODERM) 4 MG/24HR patch 1 Patch. 02/21/2017: Received from: [facility] ? ? triamcinolone acetonide (KENALOG) 0.1 % cream 02/21/2017: [facility] ??? trimethoprim (AKA TRIMPEX) 100 MG tablet [...] Medications Medication Sig Note Dispense Refill ??? beevypqt-tfgtbchyklzvwfa-iuyhuzncq-magnesium hydroxide-simethicone (AKA MAGIC MOUTHWASH) suspension Take 5 mL by mouth. 02/21/2017: [facility] ??? atorvastatin (LIPITOR) 40 MG tablet Take [...] 1 Tab by mouth. 02/21/2017: [facility]: [facility] ??? cholecalciferol (AKA VITAMIN D3) 1000 UNITS [...] 1 Tab by mouth. 02/21/2017: Received from: [facility] ??? HYDROXYZINE HCL OR ??? lidocaine (AKA LIDODERM) 5 % patch Apply 2 Patches to skin . Apply once for up to 12 hrs within a 24 hr period. 60 Patch 1 ??? lidocaine (AKA XYLOCAINE) 5 % ointment Apply to the lower back TID prn 30 g 0 ??? lisinopril (ZESTRIL) 2.5 MG tablet Take 2.5 mg by mouth. 02/21/2017: Received from: [employer] [facility] ??? LORazepam (AKA ATIVAN) 0.5 MG tablet Take 0.5 mg by mouth every 4 hours as needed for Anxiety. ??? magnesium citrate (MAGNESIUM CITRATE) solution Take 296 mL by mouth once. 4 hours before your procedure ? ? MAGNESIUM CITRATE OR Take 80-300 mL by mouth. 02/21/2017: Received from: [facility] ??? Multiple Vitamins-Minerals (CENTRUM SILVER OR) Take 1 Tab by mouth daily. ??? niacin 500 MG tablet Take 1 Tab by mouth daily with breakfast. Indications: High Amount of Cholesterol in the Blood ??? OXYCODONE HCL OR ??? polyethylene glycol (AKA MIRALAX) packet Take 1 Packet by mouth daily. Indications: Zxrehqsyzeds83 Each 2 ??? Potassium Chloride (KLOR-CON OR) Takes 40 meq twice daily ??? raNITIdine (ZANTAC) 150 MG tablet Take 150 mg by mouth. 02/21/2017: Received from: [facility] ??? sennosides-docusate sodium (SENNA-DOCUSATE) 8.6-50 MG tablet Take 1 Tab by mouth daily. ??? sennosides-docusate sodium (SENOKOT S) 8.6-50 MG per tablet Take 1 Tablet by mouth two times a day. Can go to 2 bid as needed to make stools looser Indications: Constipation 125 Tablet 11 ??? testosterone (ANDRODERM) 4 MG/24HR patch 1 Patch. 02/21/2017: Received from: [facility] ? ? triamcinolone acetonide (KENALOG) 0.1 % cream 02/21/2017: [facility] ??? trimethoprim (AKA TRIMPEX) 100 MG [...] Occupation: [employer] ??? Occupation: [employer] ??? Occupation: retired/disability [...] 1 at baseline. Lives with his in [place]. Social Determinants of Health Financial Resource Strain: [...] ([facility]C) documented in this encounter Care Teams Soybean Grower Relationship Specialty Start Date End Date Franklin Squires MD PCP - General Family Practice 03/08/[address] [place] [address] documented as of this encounter
--- OUTSIDE RECORDS SUMMARY | 2022-07-04 15:02 | XMS_ITS | Encounter Summary ---
:1945 Author Organization [facility] Address [address], [place] [address] Care Team Providers Name Role Phone Franklin Squires MD Primary Care Provider Reason for Visit Reason Comments NURSE PREP FOR PROCEDURE Encounter Details Date Type Department Care Team Description 08/28/2018 Telephone [facility] Nelly Bae NURSE PREP FOR Unit L, SALES REPRESENTATIVE AIRCRAFT [address] [place] [address] Social History Tobacco Use Types Packs/Day Years [...] on filedocumented in this encounter Care Teams Underground Truck Operator Relationship Specialty Start Date End Date Franklin Squires MD PCP - General Family Practice 03/08/[address] [place] [address] [place] [address] documented as of this encounter
--- OUTSIDE RECORDS SUMMARY | 2022-07-04 15:02 | XMS_ITS | Encounter Summary ---
:1945 Author Organization [facility] Address [address], [place] [address] Care Team Providers Name Role Phone Franklin Squires MD Primary Care Provider Encounter Details Date Type Department Care Team Description 12/11/2017 [facility]ence [facility] Neuroscience [place] MD Bryn Physical Medicine [address] [place] [address] [phone] Social History Tobacco Use Types Packs/Day Years [...] filedocumented in this encounter Care Teams Marketing Technologist Relationship Specialty Start Date End Date Franklin Squires MD PCP - General Family Practice 03/08/[address] [place], [place] [address]LES Wong [address] documented as of this encounter
--- OUTSIDE RECORDS SUMMARY | 2022-07-04 15:02 | XMS_ITS ---
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 Treatments may have been administered in another system. Resolved Problems Problem Noted Date Resolved Date Gait abnormality 01/17/2012 02/09/2015 Back pain 01/17/2012 02/09/2015 Paraplegia 04/04/2011 02/09/2015 Osteoporosis 03/06/2011 02/09/2015 Urinary tract infection 12/24/2006 03/28/2016
--- OUTSIDE RECORDS SUMMARY | 2022-07-04 15:02 | XMS_ITS | Clinical Summary ---
:1945 Author Organization [facility] Address [address], [place] [address] Care Team Providers Name Role Phone Franklin [...] for each transition of care or referral. [employer] Allergies Active Allergy Reactions Severity Noted Date [...] of medications 1 Overview: Overview: Signed 11/13/2011 Biakna Chavez RN............09/02/2014 1 0:04 AM Subdural hematoma 08/20/2014 Tinnitus of both ears 06/10/2014 Overview: Overview: Began 3-4 weeks ago Bilateral sensorineural hearing loss 06/10/2014 Sensorineural hearing loss (SNHL) of both ears 014 History of anticoagulant therapy 02/17/2014 [facility] current use of anticoagulant therapy 014 Anxiety [...] Comments Blood Pressure 120/63 01/18/2022 12:59 PM STAKING PRESS OPERATOR Pulse 87 01/18/2022 12:59 PM STAKING PRESS OPERATOR Temperature 36.3 ??C (97.4 ??F) 01/18/2022 12:59 PM STAKING PRESS OPERATOR Respiratory Rate 16 05/24/2016 4:27 PM CDT [...] this topic Medical Devices Implanted Type Area Traffic Court Magistrate Device Shelf Model / Identifier Expiration Serial / Date Lot [id number] 4ml Tisseel BIOLOGIC N/A: Lynne Fenwall 08/13 [id number] / Implanted: Qty: 1 on 04/11/2010 at [facility] NECK [id number] / Explanted: at [facility] (Quantity not on file) [id number] Description: posterior Cath Intrathecal Indura - [id number] DEVICE Right: LUMBAR Alpine B [employer]omed 01/18/2012 [id number] / Implanted: Qty: 1 on 05/09/2010 at [facility] SPINE Carlos N/A / [id number] Cath Intrathecal Indura - [id number] DEVICE Alpine Biomed [id number] / Implanted: Qty: 1 on 05/29/2010 at [facility] Carlos / Plt Lcp M/Prox Lt 3.5x94 4h - [id number] DEVICE Left: TIBIA Synthes USA [id number] / Implanted: Qty: 1 on 03/13/2011 at [facility] PROXIMAL NONE / NONE Scr Matrix Sfdr 4mm - [id number] DEVICE Right: SKULL Synthes USA [id number] / Implanted: Qty: 6 on 07/28/2014 by Cooper Shelley MD at [facility] ITAL / Lead Linear 3-4 8 Contact 50cm - [id number] DEVICE N/A: OTHER-SEE Hobbs Sci 09/10/2017 [id number] / Implanted: Qty: 1 on 03/08/2016 by Zelalem Cohen DO at [facility] DESCRIPTION Neuro Surg / [id number] Description: LUMBAR [place] Clik - [id number] DEVICE N/A: SPINE LUMBAR [employer] Sci 02/28/2018 [id number] / Implanted: Qty: 1 on 05/24/2016 by Zelalem Cohen DO at [facility] Neuro Surg / [id number] Insurance Payer Benefit Plan / Subscriber ID Effective Dates Phone Addre ss Type Group MEDICARE MEDICARE [id number] 2002-Hodan Vitale dicare nt FOR [id number] 2004-Ghada [phone] [address] [facility] [address] [place] [address] Advance Directives Latest Code Status on File Code Status Date Activated Date Inactivated Comments Full Code 05/24/2016 10:29 AM 05/24/2016 8:28 PM Full Code 03/08/2016 5:56 AM 03/08/2016 2:53 PM Full Code 10/20/2014 6:21 PM 10/21/2014 2:47 PM Full Code 07/28/2014 6:50 PM 08/02/2014 8:36 PM Full Code 07/28/2014 5:44 PM 07/28/2014 6:50 PM Care Teams Regional Ehs Manager Relationship Specialty Start Date End Date Franklin Squires MD PCP - General Family Practice 03/08/[address] [place] [address] [place] [address]
--- OUTSIDE RECORDS SUMMARY | 2022-07-04 15:02 | XMS_ITS | Encounter Summary ---
:1945 Author Organization [facility] Address [address] [address] Care Team Providers Name Role Phone Franklin Squires MD Primary Care Provider Reason for Visit Auth/Cert Specialty Diagnoses / Procedures Referred By Contact Refer red To Contact Diagnoses Neurogenic pain . Referral ID Status Reason Start Date Expiration Date Visits Requ ested Visits Authorized [id number] 1 1 Encounter Details Date Type Department Care Team Description 05/24/2016 Imaging [facility] Zelalem Cohen, DO [address] [address] [place] [address] [phone] (Wo rk) Social History Tobacco Use Types [...] 2:32 PM CDT Fluoroscopy provided by a time study technologist. Exact fluoroscopy time is documented in end of exam information in EPIC Zelalem CRAWFORD GD documented in this encounter Visit Diagnoses Not on filedocumented in this encounter Care Teams Pipe Caulker Relationship Specialty Start Date End Date Franklin Squires MD PCP - General Family Practice 03/08/[address] [place] [address] documented as of this encounter
--- OUTSIDE RECORDS SUMMARY | 2022-07-04 15:02 | XMS_ITS | Encounter Summary ---
:1945 Author Organization [facility] Address [address] [address] Care Team Providers Name Role Phone Franklin Squires MD Primary Care Provider Reason for Referral Procedure/Equipment (Routine) - Closed Specialty Diagnoses / Procedures Referred By Contact Refer red To Contact Diagnoses Decubitus ulcer of ischium, stage 3, right (HRC) Cristy Dudley APRN, CNP [address] [place] [address] Referral ID Status Reason Start Date Expiration Date Visits Requ ested Visits Authorized [id number] Closed 02/21/2017 05/23/2018 1 1 Scheduling Instructions Your provider has recommended an appoint ment with [facility] Nutrition/Dietitian. A research chemist will contact you within the next 3 business days to set up this appointment. If you have not been contac argenis, please call [phone] to schedule your appointment. This recommended servi [...] Procedures Dressing Supplies DYLAN CEDILLO [address] [place] [address] Referral ID Status Reason Start Date Expiration Date Visits Requ ested Visits Authorized [id number] Closed 02/21/2017 08/20/2017 1 1 Encounter Details Date Type Department Care Team Description 02/21/2017 Office Visit Specialty Center Cristy Dudley ecubitus ulcer of [facility] MAMADOU Miranda CNP ischium, stage 3, [address] right (Primary Dx) [place] [address] [place] [phone] (Wo rk) Social History Tobacco Use [...] referred to the Wound Clinic from the [facility]. His reports that the patient skin near [...] a pressure mapping and wheelchair evaluation through [facility]. They would prefer to not use [...] prescribed in Wound Clinic today. Refer to [facility] for other meds. PAST MEDICAL HISTORY: Past Medical History Diagnosis Date ??? 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 However resection was incomplete due [...] for spasticity of lower extremities. ??? Osteoporosis daytime caregiver wheelchair since 2006 ??? Leg fracture, left [...] Border dressing. Dressing prescription was sent to [facility]. Wheelchair evaluation and pressure mapping was ordered. [...] time spent counseling regarding treatment acute & group home options, side effects as above, outside of [...] Primary documented in this encounter Care Teams State Archivist Relationship Specialty Start Date End Date Franklin Squires MD PCP - General Family Practice 03/08/[address] [place] [address] documented as of this encounter
--- OUTSIDE RECORDS SUMMARY | 2022-07-04 15:02 | XMS_ITS | Encounter Summary ---
:1945 Author Organization [facility] Address [address], [place] [address] Care Team Providers Name Role Phone Franklin Squires MD Primary Care Provider Reason for Visit Reason Comments APPOINTMENT REQUEST Encounter Details Date Type Department Care Team Description 07/05/2021 Telephone [employer] Garry Neff APPOINTM ENT REQUEST [facility] Mya Garcia MD Management [address] [place] [address] (Wo rk) Social History Tobacco Use [...] filedocumented in this encounter Care Teams Manager Of Photography Relationship Specialty Start Date End Date Franklin Squires MD PCP - General Family Practice 03/08/[address] [place] [address] documented as of this encounter
--- OUTSIDE RECORDS SUMMARY | 2022-07-04 15:03 | XMS_ITS | Encounter Summary ---
:1945 Author Organization [employer] Address [address], [place] [address] Care Team Providers Name Role Phone Franklin Squires MD Primary Care Provider Reason for Visit Auth/Cert Specialty Diagnoses / Procedures Referred By Contact Refer red To Contact Diagnoses Neurogenic pain . Referral ID Status Reason Start Date Expiration Date Visits Requ ested Visits Authorized [id number] 1 1 Encounter Details Date Type Department Care Team Description 05/24/2016 Anesthesia Event [facility] Operating Room Brown Escalante MD [address] [place] [address] [address] [facility] Jean Wagner APRN, CRNA [address] [place] [address] [place] [address] Anesthesia Record Procedure Summary Procedure Name Responsible [...] Escalante MD - 05/24/2016 4:09 PM CDT [facility] Anesthesia Post-op Note Patient: Jeff [...] Escalante MD - 05/24/2016 11:47 AM CDT [facility] Anesthesia Pre-op Evaluation Procedure: Procedure(s): PLACEMENT THORACOLUMBAR [...] 1999 S/p resection by Dr. Glasgow at [place] in 05/2000. However resection was incomplete due [...] spasticity of lower extremities. ??? 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 Leg fracture, left [...] therapy ??? Bilateral carpal tunnel syndrome ??? 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 Cataract ??? Carpal tunnel syndrome ??? Encounter for long-term (current) use of medications ??? Sensorineural hearing loss (SNHL) of both ears Past Surgical History Procedure Laterality Date ??? Appendectomy ??? Vasectomy* ??? Turp incl contrl postop bleed cmpl ??? 13392 total knee arthroplasty right ??? Ivc filter [...] lactated ringer infusion Intravenous Continuous ??? lidocaine-epinephrine 1-1:052077 % injection Intra-Op Labs: Lab Results Component [...] QT 326 ms QTc 449 ms P [place] 60 degrees R [place] -42 degrees T [place] 26 degrees URL Link Physical Exam: BP [...] 1353 documented in this encounter Care Teams Crate Maker Relationship Specialty Start Date End Date Franklin Squires MD PCP - General Family Practice 03/08/[address] [place] [address] [place] [address] documented as of this encounter
--- OUTSIDE RECORDS SUMMARY | 2022-07-04 15:03 | XMS_ITS | Encounter Summary ---
:1945 Author Organization [facility] Address [address] [place] [address] Care Team Providers Name Role Phone Loretta Mcmahan MD Primary Care Provider Unavailable Encounter Details Date Type Department Care Team Description 02/21/2016 Orders Only External to [facility] External, [place] [address] Social History Tobacco Use Types Packs/Day Years [...] on filedocumented in this encounter Care Teams Sider Mechanic Relationship Specialty Start Date End Date Loretta Mcmahan MD PCP - General Family Practice 10/21/1402/10 documented as of this encounter
--- OUTSIDE RECORDS SUMMARY | 2022-07-04 15:03 | XMS_ITS | Encounter Summary ---
:1945 Author Organization [facility] Address [address], [place] [address] Care Team Providers Name Role Phone Loretta Mcmahan MD Primary Care Provider Unavailable Encounter Details Date Type Department Care Team Description 07/21/2015 Orders Only External to Alfonso Carlson MD [address] [place], [place] [address] (Wo rk) Social History [...] on filedocumented in this encounter Care Teams Nursing Home Administrator Relationship Specialty Start Date End Date Loretta Mcmahan MD PCP - General Family Practice 10/21/14 4/2 05/26 documented as of this encounter
--- OUTSIDE RECORDS SUMMARY | 2022-07-04 15:03 | XMS_ITS | Encounter Summary ---
:1945 Author Organization [facility] Address [address] [address] Care Team Providers Name Role Phone Loretta Mcmahan MD Primary Care Provider Unavailable Encounter Details Date Type Department Care Team Description 06/21/2015 Orders Only External to Alfonso Carlson MD [address] [place], [place] [address] (Wo rk) Social History [...] on filedocumented in this encounter Care Teams Electrical Mechanic Relationship Specialty Start Date End Date Loretta Mcmahan MD PCP - General Family Practice 10/21/14 4/2 05/26 documented as of this encounter
--- OUTSIDE RECORDS SUMMARY | 2022-07-04 15:03 | XMS_ITS | Encounter Summary ---
:1945 Author Organization [facility] Address [address] [address] Care Team Providers Name Role Phone Loretta Mcmahan MD Primary Care Provider Unavailable Reason for Visit Reason Comments Refill Encounter Details Date Type Department Care Team Description 09/02/2015 Refill [facility] [address] Zelalem Cohen, Refill Interventional Pain Management [address] [place] [address] [place] [address] [phone] Social History Tobacco Use Types Packs/Day Years [...] on filedocumented in this encounter Care Teams Pulp Bleacher Relationship Specialty Start Date End Date Loretta Mcmahan MD PCP - General Family Practice 10/21/1402/10 documented as of this encounter
--- OUTSIDE RECORDS SUMMARY | 2022-07-04 15:03 | XMS_ITS | Encounter Summary ---
:1945 Author Organization [facility] Address [address] [address] Care Team Providers Name Role Phone Franklin Squires MD Primary Care Provider Encounter Details Date Type Department Care Team Description 11/23/2015 Correspondence External to External, Provid er LETTER [facility] [place] [address] Social History Tobacco Use Types Packs/Day Years [...] on filedocumented in this encounter Care Teams Image Processing Engineer Relationship Specialty Start Date End Date Franklin Squires MD PCP - General Family Practice 03/08/[address] [place], [place] [address] [address] documented as of this encounter
--- OUTSIDE RECORDS SUMMARY | 2022-07-04 15:03 | XMS_ITS | Encounter Summary ---
:1945 Author Organization [facility] Address [address], [place] [address] Care Team Providers Name Role Phone Franklin Squires MD Primary Care Provider Reason for Visit Auth/Cert Specialty Diagnoses / Procedures Referred By Contact Refer red To Contact Diagnoses Neuropathic pain . Referral ID Status Reason Start Date Expiration Date Visits Requ ested Visits Authorized [id number] 1 1 Encounter Details Date Type Department Care Team Description 03/08/2016 Imaging [facility] Zelalem Cohen DO [address] [place] [address] [place] [address] [phone] (Wo rk) Social History Tobacco Use Types [...] 8:43 AM CDT Fluoroscopy provided by a mechatronics technologist. Exact fluoroscopy time is documented in end of exam information in EPIC Zelalem CRAWFORD GD documented in this encounter Visit Diagnoses Not on filedocumented in this encounter Care Teams Produce Clerk Relationship Specialty Start Date End Date Franklin Squires MD PCP - General Family Practice 03/08/[address] [place] [address] documented as of this encounter
--- OUTSIDE RECORDS SUMMARY | 2022-07-04 15:03 | XMS_ITS | Encounter Summary ---
:1945 Author Organization [employer] Address [address], [place] [address] Care Team Providers Name Role Phone Loretta Mcmahan MD Primary Care Provider Unavailable Reason for Referral Therapies (Routine) - Closed Specialty Diagnoses / Procedures Referred By Contact Refer red To Contact Jodi Aguila PA- C [address] [place] [address] Referral ID Status Reason Start Date Expiration Date Visits Requ ested Visits Authorized [id number] Closed 02/09/2016 04/09/2016 1 1 Scheduling Instructions Your provider has recommended an appoint ment with a [facility] Physical Therapist. Please stop at the clinic check out desk for assistance with scheduling or choose from one of these convenient locations t o call and schedule your PT appointment: Outpatient PT at [facility] [phone], Outpatient PT at [facility] [phone], Outpatient PT at [facility], located near [address] [place] [address] . Reason for Visit Reason Comments Revisit F/u Encounter Details Date Type Department Care Team Description 02/09/2016 Office Visit [facility] Jodi Aguila Bila teral carpal tunnel syndrome (Primary Dx); 401 [facility] Back pain, chronic [address] [place] [address] [place], [place] [phone] Social History Tobacco Use Types Packs/Day Years [...] understanding. Please call the Neurosurgery/Spine Clinic at [phone] option #3 with any further questions or [...] extensors, 5/5 wrist flexors, 5/5 interossei, 5/5 resin remover, 4+/5 BL abductor hallucis brevis. Psych: appropriate [...] are not MRI compatible. Will check if [employer] system would allow him to have thoracic [...] change, worsen, or if questions arise. Jodi Aguila PA-C Neurosurgery Total time spent with [...] unspecified documented in this encounter Care Teams Felt Hat Steamer Relationship Specialty Start Date End Date Loretta Mcmahan MD PCP - General Family Practice 10/21/1402/10 documented as of this encounter
--- OUTSIDE RECORDS SUMMARY | 2022-07-04 15:03 | XMS_ITS | Encounter Summary ---
:1945 Author Organization [facility] Address [address], [place] [address] Care Team Providers Name Role Phone Franklin Squires MD Primary Care Provider Encounter Details Date Type Department Care Team Description 05/23/2016 Telephone Specialty Center 401 Zelalem Cohen DO Interventional Pain Management [address] [place] [address] [place] [address] [phone] Social History Tobacco Use Types Packs/Day Years [...] on filedocumented in this encounter Care Teams Rough Rounder Relationship Specialty Start Date End Date Franklin Squires MD PCP - General Family Practice 03/08/16 [facility] [place] [address] documented as of this encounter
--- OUTSIDE RECORDS SUMMARY | 2022-07-04 15:03 | XMS_ITS | Encounter Summary ---
:1945 Author Organization [email or web address] Address [address], [place] [address] Care Team Providers Name Role Phone Loretta Mcmahan MD Primary Care Provider Unavailable Reason for Referral (Routine) - Incomplete Specialty Diagnoses / Procedures Referred By Contact Refer red To Contact Diagnoses Carpal tunnel syndrome of left wrist Jodi Aguila PA-C Procedures Case Request OR - Neurosurgery: RELEASE CARPAL TUNNEL [address] [place] [address] Referral ID Status Reason Start Date Expiration Date Visits V isits Requested Authorized [id number] Incomplete 12/29/2015 1 1 R ELECTRIC/PHOTOVOLTAIC INSTALLER Encounter Details Date Type Department Care Team Description 12/29/2015 Prep [facility] Jodi Aguila, Carpal tunnel 401 [facility] syndrome of left [address] [facility] wrist (Primary Dx) [place] [address] [place], [place] [phone] [address] Social History Tobacco Use Types Packs/Day Years [...] syndrome documented in this encounter Care Teams Receiving Clerk Relationship Specialty Start Date End Date Loretta Mcmahan MD PCP - General Family Practice 10/21/1402/10 documented as of this encounter
--- OUTSIDE RECORDS SUMMARY | 2022-07-04 15:03 | XMS_ITS | Encounter Summary ---
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 Paraplegia (HRC); [place] [address] [place] [address] Ependymoma (HRC) [phone] (Wo rk) Social History Tobacco Use Types [...] chronic Results for this W/WO IV CONT CORRESPONDENCE ANALYST Paraplegia (HRC) procedure are in Ependymoma ([facility]) the results Screening for section. nephropathy CREATININE/GFR, WB Routine 01/06/2016 12:04 PM Back pain , chronic Results for this POC CORRESPONDENCE ANALYST Paraplegia (HR) procedure are in Ependymoma ([facility]) the results Screening for section. nephropathy documented in this encounter Results MR THORACIC SPINE WITH/WITHOUT CONTRAST (01/06/2016 12:11 PM CORRESPONDENCE ANALYST) Anatomical Region Laterality Modality Spine, T-Spine, L-Spine, C-Spine, Skeletal Magnetic Resonance Specimen (Source) Anatomical Collection Method Collection Time Re ceived Time Location / / Volume Laterality 01/06/2016 12:11 PM CORRESPONDENCE ANALYST Narrative 01/06/2016 1:31 PM CORRESPONDENCE ANALYST MR THORACIC SPINE W/WO CONT 01/06/2016 12:11 [...] MRI CREATININE/GFR, WB POC (01/06/2016 12:04 PM CORRESPONDENCE ANALYST) P athologist Signature Creat Whole 0.9 0.66 - [facility] Blood 1.25 mg/dl LABORATORIES GFR, Estimated >60 >60 [facility] ml/min/1.7 LABORATORIES 3m2 GFR, Est., If >60 >60 [facility] Black ml/min/1.7 LABORATORIES 3m2 Specimen Anatomical Collection Method Collection Time Receive d Time (Source) Location / / Volume Laterality 01/06/2016 12:04 01/06/2016 PM CORRESPONDENCE ANALYST 12:21 PM CORRESPONDENCE ANALYST Trae Blair MD LAB_1 Performing Organization Address City/State/ZIP Code Phon e Number [facility] [phone] documented in this encounter Visit Diagnoses Diagnosis Screening for nephropathy - Primary Back pain, chronic Backache, unspecified Paraplegia (HRC) Paraplegia 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, unspecified site documented in this encounter Administered Medications Inactive Administered Medications - up to 3 most recent administrations Medication Order MAR Action Action Date Dose Rate Site gadobutrol (aka GADAVIST) 1 Given 01/06/2016 12:12 PM CORRESPONDENCE ANALYST 10 mL MMOL/ML injection 10 mL 10 mL, Intravenous, ONCE (NON-SCHEDULED), Starting on Sat01/06/16 at 1212, Until Sat01/06/16 at 1212, For 1 dose documented in this encounter Care Teams Insurance Marketing Rep Relationship Specialty Start Date End Date Loretta Mcmahan MD PCP - General Family Practice 10/21/1402/10 documented as of this encounter
--- OUTSIDE RECORDS SUMMARY | 2022-07-04 15:03 | XMS_ITS | Encounter Summary ---
:1945 Author Organization [facility] Address [address], [place] [address] Care Team Providers Name Role Phone Franklin Squires MD Primary Care Provider Reason for Referral (Routine) - Incomplete Specialty Diagnoses / Procedures Referred By Contact Refer red To Contact Procedures Zelalem Cohen DO XR C-Arm 2-2.5 Hours [address] [place] [address] Referral ID Status Reason Start Date Expiration Date Visits V isits Requested Authorized [id number] Incomplete 05/24/2016 08/23/2017 1 1 Reason for Visit Auth/Cert Specialty Diagnoses / Procedures Referred By Contact Refer red To Contact Diagnoses Neurogenic pain . Referral ID Status Reason Start Date Expiration Date Visits Requ ested Visits Authorized [id number] 1 1 Encounter Details Date Type Department Care Team Description 05/24/2016 Hospital Encounter [facility] Operating Room Zelalem Cohen Central pain syndrome (Prima ry Dx); 640 [facility], [place], [place] [address] [phone] [place], [place] [phone] Social History Tobacco Use Types Packs/Day Years [...] for: Jeff Cullen Thank you for choosing [facility] as your provider. A copy of [...] is after hours call the Careline at [phone]. [facility]: [phone] Physical Medicine and Rehab, (Fouzia Nogueira Schakel, [...] it. It is our goal to make [facility] your hospital of choice and want you to feel confident in recommending [facility] to your family and friends. Thank you for choosing [facility]. The nurse has reviewed the above discharge instructions with me. I understand my discharge instructions. Jeff Cullen (or Marionette Performer) Cartridge Assembler Nurse Discharge Instructions for Permanent Implant Spinal Cord Stimulation Therapy Call [phone] with questions. Immediate Post-Operative Precautions (SIX Weeks): [...] or other similar device, please have your environmental research scientist call our office. 10. In some cases, [...] them dry, use mild soap not abrasive kerrick kleaner operator for cleaning. Chronic Pain Medications (after 3-6 weeks): One of the goals of spinal cord stimulator therapy is to reduce or eliminate the need for mcfp pain medications. After you have healed from [...] examined. No change observed. Source Note - [facility], Provider - 05/17/2016 12:00 AM CDT documented in this encounter Procedure Notes Zelalem Cohen MD - 05/24/2016 9:39 PM CDT Name: Jeff Cullen MR#: [id number] Date of : 1945 Date of Procedure: 05/24/2016 Surgeon: Dr. Zelalem Cohen Diesel Mechanic Apprentice: Jaziel Hughes DNP Vendor: [employer] Procedure: 1. Peripheral Field Stimulator Implant 2. [...] wide space eight contacts, Model numbers, SN [id number] and SN [id number] were advanced through the needles. AP and lateral flouroscopic views were obtained. I then placed a third and fourth 14-guage stiletted epidural needle on the left side at the L4/5 levels for 2 other leads directed laterally. Following this, 50 cm leads with wide spaced eight contacts, Model numbers SN [id number] and SN [id number] were advanced through the needles. The stylette [...] towards the skin. The pulse generator, Model [id number], was again tested successfully. Both pockets were [...] pain, fever, chills, sweats, drainage from dressing 12.Marionette Performer from the medical company will call you daily for follow up Dr. Jagdish Cohen [place] Hughes APRN, DNP - 05/24/2016 3:01 PM CDT [facility] Brief Operative Progress Note Surgery Date: 05/24/2016 Surgeon(s) and Role: * Zelalem Cohen MD - Primary PHYSICIAN MUNICIPAL MAINTENANCE WORKER-JAZIEL HUGHES Assist: I was asked by Dr. [...] 2:32 PM CDT Fluoroscopy provided by a radiology resident. Exact fluoroscopy time is documented in end of exam information in EPIC Zelalem Cohen DO RAD GD INR/Protime (05/24/2016 10:56 AM CDT) athologist Signature Protime 13.2 12.0 - 14.5 [facility] INR 1.0 0.9 - 1.1 [facility] Specimen Anatomical Collection Method Collection Time Receive d Time (Source) Location / / Volume Laterality 05/24/2016 10:56 05/24/2016 AM CDT 11:13 AM CDT Narrative [facility] - 05/24/2016 11:39 AM C DT Performed at [facility] , [address] [place] [address] Zelalem Cohen DO LAB_1 Performing Organization Address City/State/ZIP Code Phon e Number [address] [address] documented in this encounter Visit Diagnoses Diagnosis [...] 05/24/2016 11:03 AM CDT 30 mL/hr lidocaine-epinephrine 1-1:120930 % injec tion Given 05/24/2016 12:58 PM [...] 1307, Until [place] 05/24/16 at 1311 lidocaine-epinephrine 1-1:728455 % injection (CANCELED) 1258 (Given - Provider: [...] RN)1212 (Started - Provider: Karrie Thao APRN, TRANSCRIBING OPERATORS SUPERVISOR)1456 (Infused - Provider: Cristine Shah APRN, TRANSCRIBING OPERATORS SUPERVISOR) Intravenous, at 30 mL/hr, CONTINUOUS, Starting [place] 05/24/16 at 10 45, Pre-op documented in this encounter Care Teams Director Public Service Relationship Specialty Start Date End Date Franklin Squires MD PCP - General Family Practice 03/08/[address] [place] [address] Declan [place] [address] documented as of this encounter
--- OUTSIDE RECORDS SUMMARY | 2022-07-04 15:03 | XMS_ITS | Encounter Summary ---
:1945 Author Organization [employer] Address [address] [address] Care Team Providers Name Role Phone Loretta Mcmahan MD Primary Care Provider Unavailable Reason for Visit Reason Comments Pre Procedure Questions Coumadin Clearance Encounter Details Date Type Department Care Team Description 11/18/2015 Telephone Specialty Center 401 Zelalem Cohen re Procedure Interventional Pain L, DO Questions (Coumadin Management [address] Clearance) [address] [place] [phone] Social History Tobacco Use Types Packs/Day Years Used Date Smoking Tobacco: Never Smokeless Tobacco: Never Alcohol Use Standard Drinks/Week Comments No 0 (1 standard drink = 0.6 oz pure alcoho l) Sex Assigned at Date Recorded Male 08/06/2021 5:59 PM CDT documented as of this encounter Nursing Notes Mary Waterman RN - 01/19/2016 10:59 AM CST Scheduled. OR LABORATORY TECHNICIAN Kathleen Carreon - 12/06/2015 3:10 PM CST Only space to schedule pt as of now is 02/08 in the afternoon. Need clearance from Archana at [address] [place] [address] tog late in OR. Per Donnie, Archana will not be back until 3:30 today (12/06). OR LABORATORY TECHNICIAN Beth Jacome RN - 11/28/2015 10:08 AM CST Procedure supervisor fruit grading- clearance to hold coumadin received from Dr [...] instructions received from Dr Squires, sent to [facility]. Beth Jacome RN 11/28/2015, 10:06 AM Mary Sanders RN - 11/25/2015 4:12 PM CST Lard Maker called and talked w/[place] will forward message to Dr. Tavia Quan's RN to address CoumadinClearance. Mary Waterman RN 11/25/2015, 4:15 PM OR LABORATORY TECHNICIAN Kathleen Carreon - 11/22/2015 2:08 PM CST Received call from Dr. Tavia Quan's nurse. [facility] pt will see Dr. Squires this 11/[address] Squires will address this request at that time. Mary Sanders RN - 11/22/2015 12:07 PM CST Lard Maker CHEKO with [facility] TOPETE to have Tavia Feliciano's RN to call IVP department back regarding below message. Mary Waterman RN 11/22/2015, 12:10 PM OR LABORATORY TECHNICIAN Mary Waterman, RN - 11/18/2015 4:[address] Vira Squires: Dr. Cohen will be doing a Spinal Cord Stimulator trial on the patient and coumadin clearance because it will need to be held for 5 days prior to the procedure. Lard Maker left message withRN to talk with doctor. Will give doctor the message and call back Saturday. [address] [address] Please advise. Mary Waterman RN 11/18/2015, 4:19 PM OR LABORATORY TECHNICIAN documented in this encounter Plan of Treatment Not on filedocumented as of this encounter Visit Diagnoses Not on filedocumented in this encounter Care Teams Director Of Adult Epilepsy Relationship Specialty Start Date End Date Loretta Mcmahan MD PCP - General Family Practice 10/21/1402/10 documented as of this encounter
--- OUTSIDE RECORDS SUMMARY | 2022-07-04 15:03 | XMS_ITS | Encounter Summary ---
:1945 Author Organization [facility] Address [address], [place] [address] Care Team Providers Name Role Phone Franklin [...] on filedocumented in this encounter Care Teams Online Marketing Specialist Relationship Specialty Start Date End Date Franklin Squires MD PCP - General Family Practice 03/08/[address] [place], [place] [address]LES Wong [address] documented as of this encounter
--- OUTSIDE RECORDS SUMMARY | 2022-07-04 15:03 | XMS_ITS | Encounter Summary ---
:1945 Author Organization [facility] Address [address] [address] Care Team Providers Name Role Phone Franklin Squires MD Primary Care Provider Reason for Referral (Routine) - Incomplete Specialty Diagnoses / Procedures Referred By Contact Refer red To Contact Procedures Zelalem Cohen DO XR C-ARM 30-59 MIN [address] [place] [address] Referral ID Status Reason Start Date Expiration Date Visits V isits Requested Authorized [id number] Incomplete 03/08/2016 06/07/2017 1 1 Reason for Visit Auth/Cert Specialty Diagnoses / Procedures Referred By Contact Refer red To Contact Diagnoses Neuropathic pain . Referral ID Status Reason Start Date Expiration Date Visits Requ ested Visits Authorized [id number] 1 1 Encounter Details Date Type Department Care Team Description 03/08/2016 Hospital Encounter RH Operating Room Zelalem Cohen Midline low back 640 [facility], [place] [address] sciatica (Primary [phone] [place], [place] Dx) [address] Social History Tobacco Use Types Packs/Day Years [...] Jeff Cullen Thank you for choosing [facility] as your provider. A copy [...] is after hours call the Careline at [phone]. [facility]: [phone] Follow Up Appointment Scheduled on 03/13/16 at [...] it. It is our goal to make [facility] your hospital of choice and want you to feel confident in recommending [facility] to your family and friends. Thank you for choosing [facility]. The nurse has reviewed the above discharge instructions with me. I understand my discharge instructions. Jeff Cullen (or Institutional Custodian) Screw Machine Tender Nurse Discharge Instructions for TRIAL PHASE Spinal Cord Stimulator Therapy Call [phone] with questions about the wound: Contact the device uniforms sales representative with questions about programming the unit. [...] Hx of Spinal cord Injury, ependymoma Vendor: [employer] Surgeon: Dr. Cohen Consent: The risks and [...] 50 cm lead with 8 contacts Model [id number], SN [id number] was advanced in the subcutaneous tissue to cover the right low back at the L1 level. I then placed a second lead on the left side at the L1 level in a similar fashion. Again, a 50 cm lead with 8 con tacts Model [id number], SN [id number] was advanced in the subcutaneous tissue to cover the left low back at the L1 level. I then placed a third lead in a similar fashion but at the right side at the L5 level. Again, a 50 cm lead with 8 contacts Model [id number], SN [id number] was advanced in the subcutaneous tissue to coverthe right low back at the L5 level. I then placed a 4th lead in a similar fashion but at the left side at the L5 level. Again, a 50 cm lead with 8 contacts Model [id number], SN [id number] was advanced inthe subcutaneous tissue to cover [...] F/u in one wk in clinic 8. [employer] uniforms sales representative will call you daily Dr. Benito Peterson, pain fellow participated in the procedure and care of this patient under my direct supervision. Dr. Cohen Zelalem Cohen MD - 03/08/2016 8:51 AM CDT [facility] Operative Note Surgery Date: 03/08/2016 Surgeon(s) and [...] 8:43 AM CDT Fluoroscopy provided by a pet technologist. Exact fluoroscopy time is documented in end of exam information in EPIC Zelalem Cohen DO RAD GD INR/PROTIME (03/08/2016 6:31 AM CDT) athologist Signature Protime 13.0 12.0 - 14.5 [facility] INR 1.0 0.9 - 1.1 [facility] Specimen Anatomical Collection Method Collection Time Receive d Time (Source) Location / / Volume Laterality 03/08/2016 6:31 AM 6 6:38 CDT AM CDT Narrative [facility] - 03/08/2016 7:01 AM CD T Performed at [facility] , [address] [place] [address] Zelalem Cohen DO LAB_1 Performing Organization Address City/State/ZIP Code Phon e Number [address] [address] documented in this encounter Visit Diagnoses Diagnosis [...] (Canceled Entry - Provider: Delisa Hill APRN, SUPERVISOR CAR INSTALLATIONS)0848 (Infused - Provider: Delisa Hill APRN, SUPERVISOR CAR INSTALLATIONS) at 30 mL/hr, Intravenous, CONTINUOUS, St arting [place] 03/08/16 at 0615, Until Discontinued, Pre-op documented in this encounter Care Teams Hot Saw Helper Relationship Specialty Start Date End Date Franklin Squires MD PCP - General Family Practice 03/08/[address] [place] [address] documented as of this encounter
--- OUTSIDE RECORDS SUMMARY | 2022-07-04 15:03 | XMS_ITS | Encounter Summary ---
:1945 [address] [facility] Address [address] [address] Care Team Providers Name Role Phone Franklin Squires MD Primary Care Provider Encounter Details Date Type Department Care Team Description 03/14/2016 Telephone Specialty Center 401 Zelalem Cohen, Interventional Pain Management [address] [place] [address] [place] [address] [phone] Social History Tobacco Use Types Packs/Day Years [...] patient Mary Waterman RN 03/22/2016, 11:39 AM Tye Sanchez - 03/15/2016 8:49 AM CDT Waiting on PA from insurance company Mireya Gillette RN - 03/14/2016 1:09 PM CDT Jennifer (RN) for Dr. Aguilar calling back with clearance to hold coumadin x5/days prior to procedure from Dr. Squires. Jennifer states patient will need to be bridged with Lovenox and patient has been provided with a schedule for this per Jennifer. Home Improvement Advisor: Please contact patient to schedule. Mireya Gillette RN Mary Waterman RN - 03/14/2016 11:[address] Vira Squires: Dr. Cohen will be doing a peripheral Cord Stimulator on the patient and coumadin clearance is needed because it will need to be held for 5 days prior to the procedure. Tube Buffer left message with RN to talk with doctor. Will give doctor the message and call back Saturday. [facility] [address] [facility] [address] Please advise. Mary Waterman RN 03/14/2016, 11:53 AM documented in this encounter Plan of Treatment Not on filedocumented as of this encounter Visit Diagnoses Not on filedocumented in this encounter Care Teams Ticket Taker Relationship Specialty Start Date End Date Franklin Squires MD PCP - General Family Practice 03/08/16 [address] [place] [address] documented as of this encounter
--- OUTSIDE RECORDS SUMMARY | 2022-07-04 15:03 | XMS_ITS | Encounter Summary ---
:1945 Author Organization [employer] Address [address], [place] [address] Care Team Providers Name Role Phone Franklin Squires MD Primary Care Provider Reason for Visit Auth/Cert Specialty Diagnoses / Procedures Referred By Contact Refer red To Contact Diagnoses Neuropathic pain . Referral ID Status Reason Start Date Expiration Date Visits Requ ested Visits Authorized [id number] 1 1 Encounter Details Date Type Department Care Team Description 03/08/2016 Surgery RH Operating Room Zelalem Cohen, PERIPHERAL PLACEMENT OF [address] [place] [address] TRIAL [phone] [place], [place] [id number] (Wo rk) Social History Tobacco Use Types [...] Jeff Dubon Alyse Thank you for choosing [facility] as your provider. A copy of [...] is after hours call the Careline at [phone]. [facility]: [phone] Follow Up Appointment Scheduled on 03/13/16 at [...] understand my discharge instructions. Jeff Cullen (or Family Engagement Specialist) Sample Box Maker Nurse Discharge Instructions for TRIAL PHASE Spinal Cord Stimulator Therapy Call [phone] with questions about the wound: Contact the device membership sales representative with questions about programming the [...] Hx of Spinal cord Injury, ependymoma Vendor: [employer] Surgeon: Dr. Cohen Consent: The risks and [...] 50 cm lead with 8 contacts Model [id number], SN [id number] was advanced in the subcutaneous tissue to cover the right low back at the L1 level. I then placed a second lead on the left side at the L1 level in a similar fashion. Again, a 50 cm lead with 8 con tacts Model [id number], SN [id number] was advanced in the subcutaneous tissue to cover the left low back at the L1 level. I then placed a third lead in a similar fashion but at the right side at the L5 level. Again, a 50 cm lead with 8 contacts Model [id number]-[id number], SN [id number] was advanced in the subcutaneous tissue to coverthe right low back at the L5 level. I then placed a 4th lead in a similar fashion but at the left side at the L5 level. Again, a 50 cm lead with 8 contacts Model [id number], SN [id number] was advanced inthe subcutaneous tissue to cover [...] F/u in one wk in clinic 8. [employer] membership sales representative will call you daily Dr. Benito Peterson, pain fellow participated in the procedure and care of this patient under my direct supervision. Dr. Cohen Zelalem Cohen MD - 03/08/2016 8:51 AM CDT [facility] Operative Note Surgery Date: 03/08/2016 Surgeon(s) and [...] 8:43 AM CDT Fluoroscopy provided by a space technologist. Exact fluoroscopy time is documented in end of exam information in EPIC Zelalem Cohen DO RAD GD INR/PROTIME (03/08/2016 6:31 AM CDT) P athologist Signature Protime 13.0 12.0 - 14.5 [facility] INR 1.0 0.9 - 1.1 [facility] Specimen Anatomical Collection Method Collection Time Receive d Time (Source) Location / / Volume Laterality 03/08/2016 6:31 AM 6 6:38 CDT AM CDT Narrative [facility] - 03/08/2016 7:01 AM CD T Performed at [facility] , [address] [place] [id number] Zelalem Cohen DO LAB_1 Performing Organization Address City/State/ZIP Code Phon e Number [address] [address] documented in this encounter Visit Diagnoses Diagnosis [...] (Canceled Entry - Provider: Delisa Hill APRN, MANUFACTURING PROJECT MANAGER)0848 (Infused - Provider: Delisa Hill APRN, MANUFACTURING PROJECT MANAGER) at 30 mL/hr, Intravenous, CONTINUOUS, St arting [place] 03/08/16 at 0615, Until Discontinued, Pre-op documented in this encounter Care Teams Padded Box Sewer Relationship Specialty Start Date End Date Franklin Squires MD PCP - General Family Practice 03/08/[address] [place] [address] documented as of this encounter
--- OUTSIDE RECORDS SUMMARY | 2022-07-04 15:03 | XMS_ITS | Encounter Summary ---
:1945 Author Organization [facility] Address [address], [place] [address] Care Team Providers Name Role Phone Loretta Mcmahan MD Primary Care Provider Unavailable Reason for Visit Reason Comments CHRONIC PAIN Consult/Transfer Care (Routine) - Closed Specialty Diagnoses / Procedures Referred By Contact Refer red To Contact Zelalem Cohen D O [address] [place] [address] Referral ID Status Reason Start Date Expiration Date Visits Requ ested Visits Authorized [id number] Closed 11/18/2015 02/16/2017 1 1 Encounter Details Date Type Department Care Team Description 11/23/2015 Office Visit [facility] Priti Yang, Somatic s ymptom Interventional Pain WILBUR Morse disorder (Primary Management [address] [facility] Dx) [address] [facility] [place], [place] [address] [phone] Social History Tobacco Use Types Packs/Day Years [...] psychology intake. INFORMED CONSENT AND CONFIDENTIALITY: This copywriter's credentials and therapeutic style were discussedwith the [...] Take 1 Packet by mouth daily. Indications: [id number] Each 2 ??? Potassium Chloride (KLOR-CON OR) [...] drink or used drugs as an eye rn social work first thing in the morning to steady nerves, get rid of a hangover or get the day started:no CD treatment recommended?: No PSYCHOSOCIAL HISTORY Current living situation: with spouse in house in [place] Significant relationships/marriages: He has been 48 years Children: Two adult children, four grandchildren, and two great grandchildren. Good support system Relevant family data: He grew up in [place]. He has six siblings- one brother is .. Parents Family history of psychiatric problems: None Family history of substance abuse problems: He thinks his father was an alcoholic History of physical/sexual/abuse: None Employment/school history: He completed 12th grade. He worked in [employer] before he went into the . He was in the for 22 years. Islam/spiritual beliefs:Protestant Current stressors include: None Identified Other relevant [...] intake, the patient has the following diagnoses: Spurgeon I: 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 SUMMARY: Jeff [...] LP Psychologist Healthcare Contacts Have questions? Call [phone] Need care after hours or on weekends? Call [phone] Need to make an appointment? Call [phone] Prefer to do all of this online? Visit [email or web address] For other helpful phone numbers visit [email or web address] LER documented in this encounter Plan of Treatment Scheduled Referrals Name Type Priority Associated Diagnoses Order [facility] PA[facility] PSYCHOLOGIST (ALICIA, Referral Routine O rdered: 11/18/2015 LULU) CONSULT [facility] [[id number]] documented as of this encounter Visit Diagnoses Diagnosis Somatic symptom disorder (HRC) - Primary documented in this encounter Care Teams Impact Retail Service Merchandiser Relationship Specialty Start Date End Date Loretta Mcmahan MD PCP - General Family Practice 10/21/1402/10 documented as of this encounter
--- OUTSIDE RECORDS SUMMARY | 2022-07-04 15:03 | XMS_ITS | Encounter Summary ---
:1945 Author Organization [facility] Address [address] [address] Care Team Providers Name Role Phone Franklin Squires MD Primary Care Provider Encounter Details Date Type Department Care Team Description 05/19/2016 Orders Only External to [facility], Pr ovider Social History Tobacco [...] attachment that is no t available. Provider [facility] EKG documented in this encounter Visit Diagnoses Not on filedocumented in this encounter Care Teams Multiple Games Dealer Relationship Specialty Start Date End Date Franklin Squires MD PCP - General Family Practice 03/08/[address] [place] [address] [place] [address] documented as of this encounter
--- OUTSIDE RECORDS SUMMARY | 2022-07-04 15:03 | XMS_ITS | Encounter Summary ---
:1945 Author Organization [facility] Address [address], [place] [address] Care Team Providers Name Role Phone Loretta Mcmahan MD Primary Care Provider Unavailable Encounter Details Date Type Department Care Team Description 06/16/2015 Orders Only External to Alfonso Carlson MD [address] [place], [place] [address] (Wo rk) Social History [...] on filedocumented in this encounter Care Teams Cad Manager Relationship Specialty Start Date End Date Loretta Mcmahan MD PCP - General Family Practice 10/21/14/2 05/26 documented as of this encounter
--- OUTSIDE RECORDS SUMMARY | 2022-07-04 15:03 | XMS_ITS | Encounter Summary ---
:1945 Author Organization [facility] Address [address], [place] [address] Care Team Providers Name Role Phone Loretta Mcmahan MD Primary Care Provider Unavailable Reason for Referral Consult/Transfer Care (Routine) - Closed Specialty Diagnoses / Procedures Referred By Contact Refer red To Contact Zelalem Cohen, Katia O [address] [place] [address] Referral ID Status Reason Start Date Expiration Date Visits Requ ested Visits Authorized [id number] Closed 11/18/2015 02/16/2017 1 1 Scheduling Instructions Please make an appointment with a pain p sychologist in [facility] Interventional Pain Management department. NHOUSE TRANSPLANTER Reason for Visit Reason Comments QUESTIONS, GENERAL Encounter Details Date Type Department Care Team Description 11/17/2015 Telephone Specialty Center [address] Zelalem Cohen , QUESTIONS, GENERAL Interventional Pain DO Management [address] [place] [address] [phone] Social History Tobacco Use Types Packs/Day Years Used Date Smoking Tobacco: Never Smokeless Tobacco: Never Alcohol Use Standard Drinks/Week Comments No 0 (1 standard drink = 0.6 oz pure alcoho l) Sex Assigned at Date Recorded Male 08/06/2021 5:59 PM CDT documented as of this encounter Nursing Notes Mary Waterman RN - 11/18/2015 4:06 PM CST Independent Beauty Consultant entered and triaged in Pain Psychology and SCS trial order, sent TE to PCP for coumadin clearance, and updated patient on below provider note. Patient verbalizes understanding of below provider note and does not have any additional questions or concerns at this time. Mary Waterman RN 11/18/2015, 4:10 PM NHOUSE TRANSPLANTER Zelalem Cohen MD - 11/18/2015 11:23 AM CST Peripheral SCS for back pain Order please Pain psychology order please Dr. Benito Cohen NHOUSE TRANSPLANTER Mary Waterman RN - 11/17/2015 4:16 PM [...] neurosurgery Mary Waterman RN 11/17/2015, 4:17 PM NHOUSE TRANSPLANTER Anjali Gallardo - 11/17/2015 3:53 PM CST Pt's calling would like to know if Dr. Cohen had consulted with Dr. Neff regarding procedure for an implant for pt's pain. Heather states they had this discussion back in September and have notheard back yet. Please advise Anjali Gallardo 11/17/2015, 3:54 PM NHOUSE TRANSPLANTER documented in this encounter Plan of Treatment Scheduled Referrals Name Type Priority Associated Diagnoses Order S chedule PAIN PSYCHOLOGIST (ALICIA, Referral Routine O rdered: 11/18/2015 LULU) CONSULT [facility] [[id number]] documented as of this encounter Visit Diagnoses Diagnosis Neuropathic pain - Primary Neuralgia, neuritis, and radiculitis, un specified Osteoarthritis of lumbar spine, unspecif ied spinal osteoarthritis complication status (HRC) documented in this encounter Care Teams Lace Roller Operator Relationship Specialty Start Date End Date Loretta Mcmahan MD PCP - General Family Practice 10/21/1402/10 documented as of this encounter
--- OUTSIDE RECORDS SUMMARY | 2022-07-04 15:03 | XMS_ITS | Encounter Summary ---
:1945 Author Organization [employer] Address [address], [place] [address] Care Team Providers Name Role Phone Loretta Mcmahan MD Primary Care Provider Unavailable Reason for Visit Reason Comments Other Encounter Details Date Type Department Care Team Description 01/26/2016 Telephone Specialty Center 401 Zelalem Cohen, DO Other Interventional Pain Management [address] [place] [address] [place] [address] [phone] Social History Tobacco Use Types Packs/Day Years Used Date Smoking Tobacco: Never Smokeless Tobacco: Never Alcohol Use Standard Drinks/Week Comments No 0 (1 standard drink = 0.6 oz pure alcoho l) Sex Assigned at Date Recorded Male 08/06/2021 5:59 PM CDT documented as of this encounter Nursing Notes Mireya Gillette RN - 01/27/2016 11:34 AM CDT Patient rescheduled March [address] [facility]. Mireya Gillette RN Mireya Gillette RN - 01/26/2016 4:31 PM CDT Patient scheduled for SCS Trial at [facility] 02-09-16, d/t paraplegia patient needs to scheduled at [facility]. Wedding Decorator: Please contact patient to reschedule at [facility].. Mireya Gillette RN documented in this encounter Plan of Treatment Not on filedocumented as of this encounter Visit Diagnoses Not on filedocumented in this encounter Care Teams Plate And Frame Filter Operator Relationship Specialty Start Date End Date Loretta Mcmahan MD PCP - General Family Practice 10/21/1402/10 documented as of this encounter
--- OUTSIDE RECORDS SUMMARY | 2022-07-04 15:03 | XMS_ITS | Encounter Summary ---
:1945 Author Organization [employer] Address [address] [address] Care Team Providers Name Role Phone Loretta Mcmahan MD Primary Care Provider Unavailable Reason for Visit Reason Comments APPOINTMENT REQUEST SCS procedure Encounter Details Date Type Department Care Team Description 12/06/2015 Telephone Specialty Center 401 Zelalem Cohen PPOINTMENT REQUEST Interventional Pain L, DO (SCS procedure) Management [address] [place], [place] [address] Social History Tobacco Use Types Packs/Day Years Used Date Smoking Tobacco: Never Smokeless Tobacco: Never Alcohol Use Standard Drinks/Week Comments No 0 (1 standard drink = 0.6 oz pure alcoho l) Sex Assigned at Date Recorded Male 08/06/2021 5:59 PM CDT documented as of this encounter Nursing Notes Glendy Davidson - 12/14/2015 11:50 AM CST Scheduled 02-09-16 12:30 Vicki at [facility] OR ATAL INTENSIVE CARE UNIT NURSE Kathleen Carreon - 12/06/2015 3:11 PM CST Only space to schedule pt as of now is 02/08 in the afternoon. Need clearance from Archana at [address] [place] [address] late in OR. Per Donnie, Archana will not be back until 3:30 today (12/06). ATAL INTENSIVE CARE UNIT NURSE Sapphire Shelby - 12/06/2015 2:52 PM CST Pt would like to schedule his SCS procedure. Please return call. ATAL INTENSIVE CARE UNIT NURSE documented in this encounter Plan of Treatment Not on filedocumented as of this encounter Visit Diagnoses Not on filedocumented in this encounter Care Teams Acid Etch Operator Relationship Specialty Start Date End Date Loretta Mcmahan MD PCP - General Family Practice 10/21/1402/10 documented as of this encounter
--- OUTSIDE RECORDS SUMMARY | 2022-07-04 15:03 | XMS_ITS | Encounter Summary ---
:1945 Author Organization [employer] Address [address], [place] [address] Care Team Providers Name Role Phone Franklin Squires MD Primary Care Provider Reason for Visit Auth/Cert Specialty Diagnoses / Procedures Referred By Contact Refer red To Contact Diagnoses Neuropathic pain . Referral ID Status Reason Start Date Expiration Date Visits Requ ested Visits Authorized [id number] 1 1 Encounter Details Date Type Department Care Team Description 03/08/2016 Anesthesia Event RH Operating Room Kati Santillan MD [address] [place] [address] [place] [address] Sky White MD [address] [place] [address] [place] [address] Anesthesia Record Procedure Summary Procedure Name Responsible [...] Elect ronically signed by Delisa Hill APRN, FIELD NURSE 0856 An Stop Care transferred . 1037 [...] Santillan MD - 03/08/2016 10:37 AM CDT [facility] Anesthesia Post-op Note Patient: Jeff Cullen Post-Op [...] Anesthesia Preprocedure Evaluation - Delisa Hill APRN, FIELD NURSE - 03/08/2016 7:00 AM CDT [facility] Anesthesia Pre-op Evaluation Procedure: Procedure(s): PERCUTANEOUS TRIAL [...] 1999 S/p resection by Dr. Glasgow at [facility] in 05/2000. However resection was incomplete due [...] for spasticity of lower extremities. ??? Osteoporosis fulling machine operator wheelchair since 2006 ??? Leg fracture, left [...] therapy ??? Bilateral carpal tunnel syndrome ??? marine oil terminal superintendent current use of anticoagulant therapy ??? Cataract ??? Carpal tunnel syndrome ??? Encounter for long-term (current) use of medications ??? Sensorineural hearing loss (SNHL) of both ears ROS: GERD: No Smoking:No ETOH: No Recent URI: No Past Surgical History Procedure Laterality Date ??? Appendectomy ??? Vasectomy* ??? Turp incl contrl postop bleed cmpl ??? 23102 total knee arthroplasty right ??? Ivc filter [...] Take 1 Packet by mouth daily. Indications: [id number] Each 2 ??? Potassium Chloride (KLOR-CON OR) [...] mL/hr documented in this encounter Care Teams Glass Blower Relationship Specialty Start Date End Date Franklin Squires MD PCP - General Family Practice 03/08/[address] [place] [address] documented as of this encounter
--- OUTSIDE RECORDS SUMMARY | 2022-07-04 15:03 | XMS_ITS | Encounter Summary ---
:1945 Author Organization [facility] Address [address] [place] [address] Care Team Providers Name Role Phone Loretta Mcmahan MD Primary Care Provider Unavailable Reason for Referral Procedure/Equipment (Routine) - Incomplete Specialty Diagnoses / Procedures Referred By Contact Refer red To Contact Diagnoses Back pain, 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 Garry Neff MD Procedures MR THORACIC SPINE WITH/WITHOUT CONTRAST [address] [place] [address] Referral ID Status Reason Start Date Expiration Date Visits V isits Requested Authorized [id number] Incomplete 12/21/2015 1 1 LICTS ANALYST Reason for Visit Reason Comments QUESTIONS, GENERAL Encounter Details Date Type Department Care Team Description 12/21/2015 Telephone Specialty Center 401 Garry Neff, QUESTIONS, GENERAL NeuroSurgery [address] [facility]. [address] [place] [address] [place] [address] [phone] (Wo rk) Social History Tobacco Use Types [...] by insurance.Selene Johnson RN 12/30/2015, 3:44 PM LICTS ANALYST Selene Johnson RN - 12/28/2015 9:49 AM [...] case request.Selene Johnson RN 12/28/2015, 9:57 AM LICTS ANALYST Selene Johnson RN - 12/27/2015 5:00 PM CST Reviewed patients concerns with Dr. Neff and patient will need to be NWB to UE following carpal tunnel surgery, he is recommending a lift or a [id number]-[id number] for assisting with transfers during postop coarse. Selene Johnson RN 12/27/2015, 5:02 PM LICTS ANALYST Selene Johnson RN - 12/21/2015 2:33 PM CST Call placed and did review patient current status-he is having increase in pain r/t the CTS is wondering about surgery and restrictions as patient is very dependent on his UE's for transfers, he is wondering if there is anything Dr. Neff would recommend for postop CTR, that may not restrict patient for transfers. This field underwriter did review alternative transfer methods-which patient and spouse are going to try and update clinic with return call. Will return call once reviewed with care team Selene Johnson RN 12/21/2015, 2:33 PM LICTS ANALYST Roderick Perez - 12/21/2015 1:46 PM CST Jeff Cullen is scheduled for 01/06/16 at 11:00am. Patient will be having procedure sometime in January. Heather is still requesting to speak to care team in regards to Carpel Tunnel and hand tremors. Please call Heather back. LICTS ANALYST Selene Johnson RN - 12/21/2015 12:09 PM CST Order placed.Selene Johnson RN 12/21/2015, 12:09 PM LICTS ANALYST Cristine Haddad PA-C - 12/21/2015 11:17 AM CST Please have pt obtain Thoracic MRI w/wo contrast prior to stimulator placement. Cristine Haddad PA-C 12/21/2015, 11:17 AM LICTS ANALYST Roderick Perez - 12/21/2015 10:28 AM CST [...] tremors. Please call Heather back to discuss. LICTS ANALYST documented in this encounter Plan of Treatment Not on filedocumented as of this encounter Results MR THORACIC SPINE WITH/WITHOUT CONTRAST (01/06/2016 12:11 PM CONFLICTS ANALYST) Anatomical Region Laterality Modality Spine, T-Spine, L-Spine, C-Spine, Skeletal Magnetic Resonance Specimen (Source) Anatomical Collection Method Collection Time Re ceived Time Location / / Volume Laterality 01/06/2016 12:11 PM CONFLICTS ANALYST Narrative 01/06/2016 1:31 PM CONFLICTS ANALYST MR THORACIC SPINE W/WO CONT 01/06/2016 [...] site documented in this encounter Care Teams Research Analyst Relationship Specialty Start Date End Date Loretta Mcmahan MD PCP - General Family Practice 10/21/1402/10 documented as of this encounter
--- OUTSIDE RECORDS SUMMARY | 2022-07-04 15:03 | XMS_ITS | Encounter Summary ---
:1945 Author Organization [facility] [address], [place] [address] Care Team Providers Name Role Phone Franklin Squires MD Primary Care Provider Encounter Details Date Type Department Care Team Description 07/08/2015 Correspondence [facility] Trudi Raymundo, PT ADDENDUM FOR LETTER Physical Therapy [address] OF [facility] [address] [place] [address] [phone] Social History Tobacco Use Types Packs/Day Years [...] on filedocumented in this encounter Care Teams Job Placement Counselor Relationship Specialty Start Date End Date Franklin Squires MD PCP - General Family Practice 03/08/[address] [place] [address] [facility] [place] [address] documented as of this encounter
--- OUTSIDE RECORDS SUMMARY | 2022-07-04 15:03 | XMS_ITS | Encounter Summary ---
:1945 [address] [address] Address [address], [place] [address] Care Team Providers Name Role Phone Franklin Squires MD Primary Care Provider Reason for Visit Reason Comments Medication Questions Encounter Details Date Type Department Care Team Description 02/03/2016 Telephone Specialty Center 401 Zelalem Cohen edication Questions Interventional Pain L, DO Management [address] [place] [phone] Social History Tobacco Use Types Packs/Day Years Used Date Smoking Tobacco: Never Smokeless Tobacco: Never Alcohol Use Standard Drinks/Week Comments No 0 (1 standard drink = 0.6 oz pure alcoho l) Sex Assigned at Date Recorded Male 08/06/2021 5:59 PM CDT documented as of this encounter Nursing Notes Mary Waterman RN - 02/07/2016 3:23 PM CDT Assignment Clerk updated patient on refill status. Assignment Clerk sent rx over to compounding pharmacy. Patient [...] that may make more effective. Please advise. Mary Waterman RN 02/07/2016, 2:21 PM Zelalem Cohen MD - 02/07/2016 1:11 PM CDT This is fine for compounded cream as noted [address] Benito Cohen Mireya Gillette RN - 02/07/2016 10:37 AM CDT Per patient current compound cream formula: lamotrigne 2.5%, lidocaine 1.5%, prilocaine 1.5%, verapamil HCL 5% Spoke to [facility] pharmacist Trudi, states they are able to fill compound cream. Dr. Cohen Patient states he does get some relief from compound cream, asking if there's any other ingrediant'sthat can be added that may make more effective. Mireya Gillette RN Tye Sanchez - 02/06/2016 3:19 PM CDT Pt's calling in stating she spoke with [facility] regarding her husbands compounding cream. The pharmacy stated they did not have the lamotrigne powder, wondering if there was something they could use instead. Mireya Gillette RN - 02/03/2016 11:23 AM CDT Provider to review and approve if agrees, last filled 11-02-14, Due [facility] no longer in business Spoke to patient, informed now using [facility], states he will call there first [...] on filedocumented in this encounter Care Teams Pot Operator Relationship Specialty Start Date End Date Franklin Squires MD PCP - General Family Practice 03/08/16 [facility] [place] [address] documented as of this encounter
--- OUTSIDE RECORDS SUMMARY | 2022-07-04 15:03 | XMS_ITS | Encounter Summary ---
:1945 Author Organization [employer] Address [address], [place] [address] Care Team Providers Name Role Phone L[place]ta Mcmahan MD Primary Care Provider Unavailable Reason for Visit Reason Comments QUESTIONS, GENERAL Encounter Details Date Type Department Care Team Description 12/21/2015 Telephone Specialty Center 401 Zelalem Cohen , QUESTIONS, GENERAL Interventional Pain DO Management [address] [place], [place] [address] Social History Tobacco Use Types Packs/Day Years Used Date Smoking Tobacco: Never Smokeless Tobacco: Never Alcohol Use Standard Drinks/Week Comments No 0 (1 standard drink = 0.6 oz pure alcoho l) Sex Assigned at Date Recorded Male 08/06/2021 5:59 PM CDT documented as of this encounter Nursing Notes Mary Waterman RN - 12/21/2015 10:50 AM CST Rn Liaison stated that SCS is NOT MRI friendly. [...] should be done beforehand. Please advise. Iman NITIES INSTRUCTOR documented in this encounter Plan of Treatment Not on filedocumented as of this encounter Visit Diagnoses Not on filedocumented in this encounter Care Teams Electronics Repair Technician Relationship Specialty Start Date End Date L[place]ta Mcmahan MD PCP - General Family Practice 10/21/1402/10 documented as of this encounter
--- OUTSIDE RECORDS SUMMARY | 2022-07-04 15:03 | XMS_ITS | Encounter Summary ---
:1945 Author Organization [facility] Address [address] [address] Care Team Providers Name Role Phone Franklin Squires MD Primary Care Provider Reason for Visit Auth/Cert Specialty Diagnoses / Procedures Referred By Contact Refer red To Contact Diagnoses Neurogenic pain . Referral ID Status Reason Start Date Expiration Date Visits Requ ested Visits Authorized [id number] 1 1 Encounter Details Date Type Department Care Team Description 05/24/2016 Surgery RH Operating Room Zelalem Cohen, PLACEMENT THORACOLUMBAR [facility]. [place] [address] IMPLANT STAGE TWO [phone] [place], [place] [phone] Social History Tobacco Use Types Packs/Day Years Used Date Smoking Tobacco: Never Smokeless Tobacco: Never Alcohol Use Standard Drinks/Week Comments No 0 (1 standard drink = 0.6 oz pure alcoho l) Sex Assigned at Date Recorded Male 08/06/2021 5:59 PM CDT documented as of this encounter Last Filed Vital Signs Vital Sign Reading Time Taken Comments Blood Pressure 121/60 05/24/2016 3:15 PM CDT Pulse 100 05/24/2016 3:15 PM CDT Temperature 36.5 ??C (97.7 ??F) 05/24/2016 10:33 AM CDT Respiratory Rate 18 05/24/2016 3:15 PM CDT Oxygen Saturation 100% 05/24/2016 3:15 PM CDT Inhaled Oxygen Concentration - - Weight 108.9 kg (240 lb) 05/23/2016 2:34 PM CDT Height 175.3 cm (5' 9) 05/23/2016 2:34 PM CDT Body Mass Index 35.44 05/23/2016 2:34 PM CDT documented in this encounter Discharge Instructions Discharge InstructionsNohemy Chauhan RN - 05/24/2016 4:16 PM CDT Discharge Instructions for: Jeff Dubon Alyse Thank you for choosing [facility] as your provider. A copy of [...] is after hours call the Careline at [phone]. [facility]: [phone] Physical Medicine and Rehab, (Fouzia Nogueira Schakel, Teena) Anesthesia Today you received Minor Sedation: Rest [...] it. It is our goal to make [facility] your hospital of choice and want you to feel confident in recommending [facility] to your family and friends. Thank you for choosing [facility]. The nurse has reviewed the above discharge instructions with me. I understand my discharge instructions. Jeff Cullen (or Leno Sewer) Hydro Generation Manager Nurse Discharge Instructions for Permanent Implant Spinal Cord Stimulation Therapy Call [phone] with questions. Immediate Post-Operative Precautions (SIX Weeks): [...] or other similar device, please have your person investigator call our office. 10. In some cases, [...] them dry, use mild soap not abrasive transport corps officer for cleaning. Chronic Pain Medications (after 3-6 weeks): One of the goals of spinal cord stimulator therapy is to reduce or eliminate the need for buttermaker continuous churn pain medications. After you have healed from [...] examined. No change observed. Source Note - [facility], Provider - 05/17/2016 12:00 AM CDT documented in this encounter Procedure Notes Zelalem Cohen MD - 05/24/2016 9:39 PM CDT Name: Jeff Cullen MR#: [id number] Date of : 1945 Date of Procedure: 05/24/2016 Surgeon: Dr. Zelalem Cohen Heating Operators Engineer: Dago Hughes DNP Vendor: [employer] Procedure: 1. Peripheral Field Stimulator Implant 2. [...] wide space eight contacts, Model numbers, SN [id number] and SN [id number] were advanced through the needles. AP and lateral flouroscopic views were obtained. I then placed a third and fourth 14-guage stiletted epidural needle on the left side at the L4/5 levels for 2 other leads directed laterally. Following this, 50 cm leads with wide spaced eight contacts, Model numbers SN [id number] and SN [id number] were advanced through the needles. The stylette [...] towards the skin. The pulse generator, Model [id number], was again tested successfully. Both pockets were [...] pain, fever, chills, sweats, drainage from dressing 12.Leno Sewer from the [facility] will call you daily for follow up Dr. Jagdish Cohen [place] Hughes APRN, DNP - 05/24/2016 3:01 PM CDT [facility] Brief Operative Progress Note Surgery Date: 05/24/2016 Surgeon(s) and Role: * Zelalem Cohen MD - Primary PHYSICIAN HYDROGEN CELL TENDER-DAGO HUGHES Assist: I was asked by Dr. [...] 2:32 PM CDT Fluoroscopy provided by a genetic technologist. Exact fluoroscopy time is documented in end of exam information in EPIC Zelalem Cohen DO RAD GD INR/Protime (05/24/2016 10:56 AM CDT) athologist Signature Protime 13.2 12.0 - 14.5 [facility] INR 1.0 0.9 - 1.1 [facility] Specimen Anatomical Collection Method Collection Time Receive d Time (Source) Location / / Volume Laterality 05/24/2016 10:56 05/24/2016 AM CDT 11:13 AM CDT Narrative [facility] - 05/24/2016 11:39 AM C DT Performed at [facility] , [address] [place] [id number] Zelalem Cohen DO LAB_1 Performing Organization Address City/State/ZIP Code Phon e Number [address] [address] documented in this encounter Visit Diagnoses Diagnosis Central pain syndrome - Primary Back pain, chronic Backache, unspecified Neuropathic pain Neuralgia, neuritis, and radiculitis, un [...] 05/24/2016 11:03 AM CDT 30 mL/hr lidocaine-epinephrine 1-1:032709 % injec tion Given 05/24/2016 12:58 PM [...] Irrigation (COMPLETED) 1311 (Given - Provider: Ayush Castro RN) Irrigation, INTRA-OP, 1 dose, Starting T hu 05/24/16 at 1307, Until [place] 05/24/16 at 1311 lidocaine-epinephrine 1-1:926982 % injection (CANCELED) 1258 (Given - Provider: Ayush Castro RN - Comment: MIXED WITH 30 ML BUPIVACAINE 0.5% , TOTAL AMOUNT INJECTED = 28 ML) INTRA-OP, 1 dose, Starting [place] 05/24/16 at 0713, Until Discontinu ed vancomycin (aka VANCOCIN) injection 1,000 mg (COMPLETED) 1119 (Given - Provider: Aidee Hernandez RN - Comment: start per [facility]) 1,000 mg, Intravenous, ONCE (NON-SCHEDUL ED), 1 dose, Starting [place] 05/24/16 at 1028, Until Discontinued, Pre-op vancomycin (aka VANCOCIN) injection 500 mg (COMPLETED) 1119 (Given - Provider: Aidee Hernandez RN - Comment: start per [facility]) 500 mg, Intravenous, ONCE (NON-SCHEDULED ), 1 dose, Starting [place] 05/24/16 at 1028, Until Discontinued, Pre-op Continuous Medication Order 05/22/2016 05/23/2016 05/24/2016 lactated ringer infusion (CANCELED) 1103 (Started - Provider: Aidee Hernandez RN)1212 (Started - Provider: Karrie Thao APRN, BAKERY AND DELI SALES MANAGER)1456 (Infused - Provider: Cristine Shah APRN, BAKERY AND DELI SALES MANAGER) Intravenous, at 30 mL/hr, CONTINUOUS, Starting [place] 05/24/16 at 10 45, Pre-op documented in this encounter Care Teams Junior High Math Teacher Relationship Specialty Start Date End Date Franklin Squires MD PCP - General Family Practice 03/08/[address] [place] [address] documented as of this encounter
--- OUTSIDE RECORDS SUMMARY | 2022-07-04 15:03 | XMS_ITS | Encounter Summary ---
:1945 Author Organization [employer] Address [address] [address] Care Team Providers Name Role Phone Franklin Squires MD Primary Care Provider Reason for Visit Reason Comments Revisit SCS trial lead removal Encounter Details Date Type Department Care Team Description 03/13/2016 Office Visit Specialty Center 401 Neur opathic pain (Primary Dx); Interventional Pain Central pain syndrome Management [address] [place] [address] Social History Tobacco Use Types [...] with SCS trial. Please also see Dr. Cohen's notes for this visit. Supplemental Nurse removed old back dressing, removed steri-strips, cleaned [...] syndrome documented in this encounter Care Teams Electronic Controls Repairer Supervisor Relationship Specialty Start Date End Date Franklin Squires MD PCP - General Family Practice 03/08/16 [facility] [place] [address] documented as of this encounter
--- OUTSIDE RECORDS SUMMARY | 2022-07-04 15:03 | XMS_ITS | Encounter Summary ---
:1945 Author Organization [facility] Address [address], [place] [address] Care Team Providers Name Role Phone Franklin Squires MD Primary Care Provider Encounter Details Date Type Department Care Team Description 01/06/2016 Correspondence [facility] Radiology, MRI SAFETY SHEET [address] [place] [address] Provider [place] [address] Social History Tobacco Use Types Packs/Day Years [...] on filedocumented in this encounter Care Teams Staff Analyst Relationship Specialty Start Date End Date Franklin Squires MD PCP - General Family Practice 03/08/[address] [place], [place] [address]LES Wong [address] documented as of this encounter
--- OUTSIDE RECORDS SUMMARY | 2022-07-04 15:03 | XMS_ITS | Encounter Summary ---
:1945 Author Organization [employer] Address [address], [place] [address] Care Team Providers Name Role Phone Franklin Squires MD Primary Care Provider Encounter Details Date Type Department Care Team Description 05/21/2016 Telephone Specialty Center 401 Zelalem Cohen, Interventional Pain Management [address] [place] [address] [place] [address] [phone] Social History Tobacco Use Types Packs/Day Years Used Date Smoking Tobacco: Never Smokeless Tobacco: Never Alcohol Use Standard Drinks/Week Comments No 0 (1 standard drink = 0.6 oz pure alcoho l) Sex Assigned at Date Recorded Male 08/06/2021 5:59 PM CDT documented as of this encounter Nursing Notes Wilkes, Mireya Allen RN - 05/23/2016 1:52 PM CDT Bret from [facility] calling, states Alvarado latif sent message to purchasing department requesting ok to use Model #[id number] for procedure 05-24-16? Bret asking Dr. Cohen has he used this before? Per Bret: she's not sure if this has been used by Dr. Cohen before and if this model is new it would have to go through [place] approval [place]. [place] [address] Letitia calling back before designer/writer closed encoutner, states she spoke to Gelacio Santos in purchasing and since hope is same, it's ok to use this model. Manager [employer] sent e-mail to Alvarado Hernandez (cc'd Letitia Sherwood) for him to call Letitia from [facility] and discuss this. Mireya Gillette RN Zelalem Cohen MD - 05/22/2016 7:39 AM CDT [place] [facility] For SCS implant Dr. Benito Cohen Mireya Gillette RN - 05/21/2016 1:48 PM CDT Manager [employer]an[employer] spoke to Bret, informed her 03-08-16 Trial was with BS and permanent implant would be with same. Dr. Cohen Please advise if this has changed? Mireya Gillette RN Beth Jacome RN - 05/21/2016 11:38 AM CDT Bret at [facility] is asking which brand of SCS this pt is having implanted. Can't tell from the notes. [place] ext [phone] and let her know. Beth Jacome RN 05/21/2016, 11:39 AM documented in this encounter Plan of Treatment Not on filedocumented as of this encounter Visit Diagnoses Not on filedocumented in this encounter Care Teams Piece Presser Relationship Specialty Start Date End Date Franklin Squires MD PCP - General Family Practice 03/08/[address] [place] [address] documented as of this encounter
--- OUTSIDE RECORDS SUMMARY | 2022-07-04 15:03 | XMS_ITS | Encounter Summary ---
:1945 Author Organization [facility] Address [address] [address] Care Team Providers Name Role Phone Franklin Squires MD Primary Care Provider Encounter Details Date Type Department Care Team Description 02/09/2016 Correspondence Specialty Center Jodi Aguila PA TIENT LIFT 401 NeuroSurgery PA-C PRESCRIPTION [address] [place] [address] [place], [place] [phone] Social History Tobacco Use Types Packs/Day Years [...] on filedocumented in this encounter Care Teams Firer Glost Kiln Relationship Specialty Start Date End Date Franklin Squires MD PCP - General Family Practice 03/08/[address] [place] [address] [place] [address] documented as of this encounter
--- OUTSIDE RECORDS SUMMARY | 2022-07-04 15:04 | XMS_ITS | Encounter Summary ---
:1945 Author Organization [facility] Address [address] [address] Care Team Providers Name Role Phone Franklin Squires MD Primary Care Provider Encounter Details Date Type Department Care Team Description 12/16/2014 Correspondence External to External, Provid er MEDICARE PLAN OF CARE [place] [address] Social History Tobacco Use Types Packs/Day Years [...] on filedocumented in this encounter Care Teams Furnace Charging Machine Operator Relationship Specialty Start Date End Date Franklin Squires MD PCP - General Family Practice 03/08/[address] [place] [address] [facility] [address] documented as of this encounter
--- OUTSIDE RECORDS SUMMARY | 2022-07-04 15:04 | XMS_ITS | Encounter Summary ---
:1945 Author Organization [facility] Address [address] [place] [address] Care Team Providers Name Role Phone [place]ta [...] 01/05/2015 12:00 AM Resul ts for this CHANNEL MARKETING MANAGER procedure are i n the results section. documented in this encounter Results MRI SPINE--SCAN (01/05/2015 12:00 AM CHANNEL MARKETING MANAGER) Anatomical Region Laterality Modality Other Specimen (Source) Anatomical Location Collection Method / Collectio n Time Received Time / Laterality Volume 01/05/2015 Narrative This result has an attachment that is no t available. L[place]ta Mcmahan MD DUMMY/OTHER/AR documented in this encounter Visit Diagnoses Not on filedocumented in this encounter Care Teams Netting Weaver Relationship Specialty Start Date End Date L[place]ta Mcmahan MD PCP - General Family Practice 10/21/1402/10 documented as of this encounter
--- OUTSIDE RECORDS SUMMARY | 2022-07-04 15:04 | XMS_ITS | Encounter Summary ---
:1945 Author Organization [facility] Address [address] [address] Care Team Providers Name Role Phone L[place]ta Mcmahan MD Primary Care Provider Unavailable Encounter Details Date Type Department Care Team Description 03/30/2015 Office Visit [facility] [place]ta Mcmahan MD Paraplegia (Primary Dx); Physical Therapy Trudi Raymundo, PT [address] [place] [address] Osteoporosis; [address] [facility] Back pain, chronic [place], [place] [phone] Social History Tobacco Use Types Packs/Day Years Used Date Smoking Tobacco: Never Smokeless Tobacco: Never Alcohol Use Standard Drinks/Week Comments No 0 (1 standard drink = 0.6 oz pure alcoho l) Sex Assigned at Date Recorded Male 08/06/2021 5:59 PM CDT documented as of this encounter Progress Notes Trudi Raymundo, PT - 03/30/2015 2:11 PM CDT OUTPATIENT PHYSICAL THERAPY: SEATING/MOBILITY EVALUATION Jeff Cullen [id number] 1945 Payor: MEDICARE / Plan: MEDICARE [id number] / Product Type: Medicare / Referring Provider: [...] or sleeping on the right side. His [employer] 600 manual wheelchair has side panels as [...] Cardio-Respiratory Status: intact CURRENT SEATING/MOBILITY: (Type - Stocklayer-Model) Chair: [employer], age: 3 1/2 years old w/c Cushion: [...] lift. 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 PATIENTS GOALS: Seeking recommendations to [...] chair and transfer training. SHORT TERM and FINANCIAL REPORTING CONSULTANT GOALS: (within 6 sessions) 1. Pt will [...] unspecified documented in this encounter Care Teams Medical Facilities Section Director Relationship Specialty Start Date End Date [place]ta Mcmahan MD PCP - General Family Practice 10/21/1402/10 documented as of this encounter
--- OUTSIDE RECORDS SUMMARY | 2022-07-04 15:04 | XMS_ITS | Encounter Summary ---
:1945 Author Organization [employer] Address [address] [place] [address] Care Team Providers Name Role Phone L[place]ta Mcmahan MD Primary Care Provider Unavailable Reason for Visit Reason Comments Revisit Encounter Details Date Type Department Care Team Description 01/18/2015 Office Visit Specialty Center 401 Zelalem Cohen pendymoma (Primary Dx); Interventional Pain L, DO Left-sided low back pain without sciatic a Management [address] [place] [phone] Social History Tobacco Use Types Packs/Day Years [...] visit: Subjective: pt had RFA done at [facility] but apparently no f/u at [facility], he is here to f/u for RFA. [...] S/p left L2/3 facet RFA, done at [facility] Plan of Care: 1. Reassured pt, can [...] a documented in this encounter Care Teams Logistics Loss Prevention Manager Relationship Specialty Start Date End Date [place]ta Mcmahan MD PCP - General Family Practice 10/21/1402/10 documented as of this encounter
--- OUTSIDE RECORDS SUMMARY | 2022-07-04 15:04 | XMS_ITS | Encounter Summary ---
:1945 Author Organization [facility] Address [address] [place] [address] Care Team Providers Name Role Phone L[place]ta Mcmahan MD Primary Care Provider Unavailable Encounter Details Date Type Department Care Team Description 05/24/2015 Orders Only External to Alfonso Carlson MD [address] [place], [place] [address] (Wo rk) Social History [...] on filedocumented in this encounter Care Teams Analysis Mgr Relationship Specialty Start Date End Date [place]ta Mcmahan MD PCP - General Family Practice 10/21/14 4/2 05/26 documented as of this encounter
--- OUTSIDE RECORDS SUMMARY | 2022-07-04 15:04 | XMS_ITS | Encounter Summary ---
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 [place] [address] [place] [address] [phone] (Wo rk) Social History Tobacco Use Types [...] City/State/ZIP Code Phon e Number [facility] [phone] MR THORACIC SPINE WITH/WITHOUT CONTRAST (06/07/2015 12:17 [...] dose documented in this encounter Care Teams Steersman Relationship Specialty Start Date End Date [place]ta Mcmahan MD PCP - General Family Practice 10/21/1402/10 documented as of this encounter
--- OUTSIDE RECORDS SUMMARY | 2022-07-04 15:04 | XMS_ITS | Encounter Summary ---
:1945 Author Organization [facility] Address [address] [address] Care Team Providers Name Role Phone [place]ta Mcmahan MD Primary Care Provider Unavailable Encounter Details Date Type Department Care Team Description 01/19/2015 Telephone Specialty Center 401 Zelalem Cohen, Interventional Pain Management [address] [place] [address] [place] [address] [phone] Social History Tobacco Use Types Packs/Day Years [...] Barroso MA - 01/19/2015 11:49 AM CDT [employer] Admin called pt insurance [id number] requesting for PA form, pt insurance stated that they will fax PA form to clinic. Med- Lidocaine patch 5%, Pt ID#- [id number] Javy Barroso MA 01/19/2015, 11:53 AM documented in this encounter Plan of Treatment Not on filedocumented as of this encounter Visit Diagnoses Not on filedocumented in this encounter Care Teams Pit Crane Operator Relationship Specialty Start Date End Date L[place]ta Mcmahan MD PCP - General Family Practice 10/21/1402/10 documented as of this encounter
--- OUTSIDE RECORDS SUMMARY | 2022-07-04 15:04 | XMS_ITS | Encounter Summary ---
:1945 Author Organization [facility] Address [address], [place] [address] Care Team Providers Name Role Phone Loretta Mcmahan MD Primary Care Provider Unavailable Reason for Visit Reason Comments RESULTS, TEST Encounter Details Date Type Department Care Team Description 05/16/2015 Telephone Specialty Center 401 Garry Neff MD RESULTS, TEST NeuroSurgery [address] [place] [address] [place] [address] [phone] Social History Tobacco Use Types Packs/Day Years [...] filedocumented in this encounter Care Teams Furnace Maintenance Relationship Specialty Start Date End Date Loretta Mcmahan MD PCP - General Family Practice 10/21/1402/10 documented as of this encounter
--- OUTSIDE RECORDS SUMMARY | 2022-07-04 15:04 | XMS_ITS | Encounter Summary ---
:1945 Author Organization [employer] Address [address] [place] [address] Care Team Providers Name Role Phone Loretta Goss MD Primary Care Provider Unavailable Reason for Visit Reason Comments Revisit power wheelchair eval Encounter Details Date Type Department Care Team Description 12/07/2014 Office Visit Specialty Center May Randle Para plegia (Primary Dx); 401 Physical Kirsten Clemente MD Ependymoma; [address] DVT (deep venous thrombosis), bilateral; [place] [address] [place], [place] Neurogenic bladder; [phone] Neurogenic bowel; [phone] Neurogenic pain (Work) Social History Tobacco Use [...] Comments Blood Pressure 130/78 12/07/2014 2:11 PM STEAM BOILER FIREMAN Pulse 85 12/07/2014 2:11 PM STEAM BOILER FIREMAN Temperature - - Respiratory Rate - - [...] treatment plan is please contact us at [phone] or send us a secure message via [employer]. If you need follow-up in the future, please call [phone] for an appointment. If you cannot get a time that satisfies you, please let us know what times work for you and we will do our best to accommodate you. Thank you for choosing May Randle MD and [facility] Physical Medicine and Rehabilitation. M BOILER FIREMAN documented in this encounter Progress Notes May [...] Dr. Cohen. He has had procedures through [facility] including nerve blocks and his notes they [...] care physician is Dr. Loretta GOSS at [facility] in [facility]. He continues to follow with Dr. Neff in neurosurgery regarding the thoracic tumor Past Medical History Diagnosis Date ??? 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 However resection was incomplete due [...] 1 at baseline. Lives with his in [place]. Family History Problem Relation Age of Onset [...] Tone is minimallyincreased in the lower extremities Rebcea 1+. There is no clonus. Deep tendon [...] new power chair completed. May Randle MD M BOILER FIREMAN documented in this encounter Plan of Treatment Not on filedocumented as of this encounter Visit Diagnoses Diagnosis Paraplegia (HRC) - Primary Paraplegia 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, unspecified site DVT (deep venous thrombosis), bilateral Neurogenic bladder Neurogenic bladder, NOS Neurogenic bowel Neurogenic pain Neuralgia, neuritis, and radiculitis, un specified documented in this encounter Care Teams Immigration Officer Relationship Specialty Start Date End Date Loretta Goss MD PCP - General Family Practice 10/21/1402/10 documented as of this encounter
--- OUTSIDE RECORDS SUMMARY | 2022-07-04 15:04 | XMS_ITS | Encounter Summary ---
:1945 Author Organization [employer] Address [address] [place] [address] Care Team Providers Name Role Phone Loretta Mcmahan MD Primary Care Provider Unavailable Reason for Visit Reason Comments QUESTIONS, GENERAL Encounter Details Date Type Department Care Team Description 03/21/2015 Telephone Specialty Center 401 Garry Neff X, QUESTIONS, GENERAL NeuroSurgery [address] [facility]. [address] [place] [address] [place] [address] [phone] (Wo rk) Social History Tobacco Use Types Packs/Day Years Used Date Smoking Tobacco: Never Smokeless Tobacco: Never Alcohol Use Standard Drinks/Week Comments No 0 (1 standard drink = 0.6 oz pure alcoho l) Sex Assigned at Date Recorded Male 08/06/2021 5:59 PM CDT documented as of this encounter Nursing Notes Govind wDyer - 03/23/2015 3:24 PM CDT Demographic, order, notes and images faxed to [facility] ATT: idalmis Douglas. [phone]. Patient is aware procedure will need PA and [facility] will be contacting patient. Cristy Rodrigues RN - 03/23/2015 1:31 PM CDT Spoke with pt, he agrees with plan. Order placed, will forward to Vlad to assist pt with scheduling rhizotomy at [facility] with Dr. Candace Rodrigues RN 03/23/2015, 1:32 PM Jodi Aguila PA-C - 03/23/2015 12:50 PM CDT Refer for bilateral L5-S1 radiofrequency ablation with Oswald Maria. Thanks Selene Johnson RN - 03/21/2015 12:52 PM CDT Call placed and talked to patient-he stated that he did receive great relief after the injection however now the pain has returned wondering what the plan will be, this consumer loan underwriter did explain that I will review with [...] hy documented in this encounter Care Teams Vice President Marketing & Development Relationship Specialty Start Date End Date Loretta Mcmahan MD PCP - General Family Practice 10/21/1402/10 documented as of this encounter
--- OUTSIDE RECORDS SUMMARY | 2022-07-04 15:04 | XMS_ITS | Encounter Summary ---
:1945 Author Organization [facility] Address [address], [place] [address] Care Team Providers Name Role Phone Loretta Mcmahan MD Primary Care Provider Unavailable Reason for Visit Reason Comments Revisit F/u Encounter Details Date Type Department Care Team Description 06/07/2015 Office Visit Specialty Center Garry Neff Epsalome ndymoma (Primary Dx); 401 NeuroSurgery X, Facet arthropathy, lumbar; [address] [place] [address] [place], [place] [phone] (Wo rk) Social History Tobacco Use Types [...] understanding. Please call the Neurosurgery/Spine Clinic at [phone] with any further questions or concerns. documented in this encounter Progress Notes Garry Neff MD - 06/29/2015 4:09 PM CDT Agree with above Garry Neff MD Jodi Aguila PA-C - 06/29/2015 3:53 PM CDT IJodi PA-C, am acting as a phlebotomist medical lab assistant for Dr. Neff, I am transcribing directly [...] this plan. Total time Dr. Neff spent [id number] with patient was 25 minutes, over 50% spent on counseling. 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
--- OUTSIDE RECORDS SUMMARY | 2022-07-04 15:04 | XMS_ITS | Encounter Summary ---
:1945 Author Organization [facility] Address [address] [address] Care Team Providers Name Role Phone Loretta Mcmahan MD Primary Care Provider Unavailable Reason for Referral Procedure/Equipment (Routine) - Closed Specialty Diagnoses / Procedures Referred By Contact Refer red To Contact Diagnoses Left arm numbness Garry Neff MD [address] [place] [address] Referral ID Status Reason Start Date Expiration Date Visits Requ ested Visits Authorized [id number] Closed 03/03/2015 06/01/2016 1 1 Scheduling Instructions Scheduling Instructions (EMG): If an zenia ointment with [facility] was advised and you have not been contacted within 3 business days, please call [phone] at the [facility] or [phone] at the [facility] for assistance. Do not apply [...] numbness [address] [place] [address] [place], [place] [phone] (Wo rk) Social History Tobacco Use Types [...] facet joint injection with Dr. Russo at [facility]. You will be scheduled for [...] understanding. Please call the Neurosurgery/Spine Clinic at [phone] with any further questions or concerns. documented [...] extensors, 5/5 wrist flexors, 5/5 interossei, 5/5 cloth examiner bilaterally. Paraplegic of LE ?? Spine: cannot [...] sensation documented in this encounter Care Teams Advertising Solicitor Relationship Specialty Start Date End Date Loretta Mcmahan MD PCP - General Family Practice 10/21/1402/10 documented as of this encounter
--- OUTSIDE RECORDS SUMMARY | 2022-07-04 15:04 | XMS_ITS | Encounter Summary ---
:1945 Author Organization [facility] Address [address] [place] [address] Care Team Providers Name Role Phone Loretta Mcmahan MD Primary Care Provider Unavailable Encounter Details Date Type Department Care Team Description 04/19/2015 Orders Only External to Alfonso Carlson MD [address] [place], [place] [address] (Wo rk) Social History [...] filedocumented in this encounter Care Teams Rivet Maker Relationship Specialty Start Date End Date Loretta Mcmahan MD PCP - General Family Practice 10/21/14 4/2 05/26 documented as of this encounter
--- OUTSIDE RECORDS SUMMARY | 2022-07-04 15:04 | XMS_ITS | Encounter Summary ---
:1945 Author Organization [facility] Address [address] [address] Care Team Providers Name Role Phone Loretta Mcmahan MD Primary Care Provider Unavailable Reason for Visit Reason Comments Refill Encounter Details Date Type Department Care Team Description 04/09/2015 Refill Specialty Center 401 Zelalem Cohen, DO Refill Interventional Pain Management [address] [place] [address] [place] [address] [phone] Social History Tobacco Use Types Packs/Day Years [...] on filedocumented in this encounter Care Teams Coremaker Helper Relationship Specialty Start Date End Date Loretta Mcmahan MD PCP - General Family Practice 10/21/1402/10 documented as of this encounter
--- OUTSIDE RECORDS SUMMARY | 2022-07-04 15:04 | XMS_ITS | Encounter Summary ---
:1945 Author Organization [facility] Address [address] [place] [address] Care Team Providers Name Role Phone Loretta Mcmahan MD Primary Care Provider Unavailable Encounter Details Date Type Department Care Team Description 05/03/2015 Orders Only External to Alfonso Carlson MD [address] [place], [place] [address] (Wo rk) Social History [...] filedocumented in this encounter Care Teams Senior Marketing Coordinator Relationship Specialty Start Date End Date Loretta Mcmahan MD PCP - General Family Practice 10/21/1402/10 documented as of this encounter
--- OUTSIDE RECORDS SUMMARY | 2022-07-04 15:04 | XMS_ITS | Encounter Summary ---
:1945 Author Organization [facility] Address [address], [place] [address] Care Team Providers Name Role Phone Loretta Mcmahan MD Primary Care Provider Unavailable Encounter Details Date Type Department Care Team Description 05/11/2015 Telephone Specialty Center 401 Garry Neff MD NeuroSurgery [address] [place] [address] [place] [address] [phone] Social History Tobacco Use Types Packs/Day Years [...] on filedocumented in this encounter Care Teams Civil Structural Engineer Relationship Specialty Start Date End Date Loretta Mcmahan MD PCP - General Family Practice 10/21/1402/10 documented as of this encounter
--- OUTSIDE RECORDS SUMMARY | 2022-07-04 15:04 | XMS_ITS | Encounter Summary ---
:1945 Author Organization [facility] Address [address] [place] [address] Care Team Providers Name Role Phone Loretta Mcmahan MD Primary Care Provider Unavailable Encounter Details Date Type Department Care Team Description 05/31/2015 Orders Only External to Alfonso Carlson MD [address] [place], [place] [address] (Wo rk) Social History [...] filedocumented in this encounter Care Teams Aircraft Ordnance Systems Mechanic Relationship Specialty Start Date End Date Loretta Mcmahan MD PCP - General Family Practice 10/21/14/2 05/26 documented as of this encounter
--- OUTSIDE RECORDS SUMMARY | 2022-07-04 15:04 | XMS_ITS | Encounter Summary ---
:1945 Author Organization [facility] Address [address], [place] [address] Care Team Providers Name Role Phone Loretta Mcmahan MD Primary Care Provider Unavailable Reason for Visit Reason Comments Medication Questions Encounter Details Date Type Department Care Team Description 03/28/2015 Telephone Specialty Center 401 Deacon Dickinson edication Questions Interventional Pain TMD Management [address] [place] [phone] Social History Tobacco Use Types Packs/Day Years Used Date Smoking Tobacco: Never Smokeless Tobacco: Never Alcohol Use Standard Drinks/Week Comments No 0 (1 standard drink = 0.6 oz pure alcoho l) Sex Assigned at Date Recorded Male 08/06/2021 5:59 PM CDT documented as of this encounter Nursing Notes Mireya Gillette RN - 03/30/2015 10:41 AM CDT Spoke to [place] Pharmacist nely Ponce provider has approved M3. [...] Lidocaine 1.5% Prilocaine 1.5% Verapamil 5%? Per [place] [facility], the compounded cream ordered Ketamine 10%, boclofen 2%, gabapentin 6%, verapamil 6% is not covered by pt's insurance. Deacon Dickinson MD - 03/28/2015 3:57 PM CDT maryellen patient Deacon Dickinson MD Jolie Bernstein RN - 03/28/2015 11:41 AM CDT Provider, ok to use M3? Jolie Bernstein RN 03/28/2015, 11:41 AM Amira Xavier - 03/28/2015 10:52 AM CDT Katerina from [place] [facility] with some questions about Generic Medication (COMPOUNDED CREAM) statesits not covered any more so they are wondering if it can be switched to M3. Please advise. documented in this encounter Plan of Treatment Not on filedocumented as of this encounter Visit Diagnoses Not on filedocumented in this encounter Care Teams Paint Formulator Relationship Specialty Start Date End Date Loretta Mcmahan MD PCP - General Family Practice 10/21/1402/10 documented as of this encounter
--- OUTSIDE RECORDS SUMMARY | 2022-07-04 15:04 | XMS_ITS | Encounter Summary ---
:1945 Author Organization [facility] Address [address], [place] [address] Care Team Providers Name Role Phone Loretta Mcmahan MD Primary Care Provider Unavailable Encounter Details Date Type Department Care Team Description 03/24/2015 Orders Only [facility] Elif Neff MD Neurology EEG/EMG [address] [place] [address] [place], [place] [phone] Social History Tobacco Use Types Packs/Day Years [...] on filedocumented in this encounter Care Teams Mold Closer Helper Relationship Specialty Start Date End Date Loretta Mcmahan MD PCP - General Family Practice 10/21/1402/10 documented as of this encounter
--- OUTSIDE RECORDS SUMMARY | 2022-07-04 15:04 | XMS_ITS | Encounter Summary ---
:1945 Author Organization [facility] Address [address] [place] [address] Care Team Providers Name Role Phone Loretta Mcmahan MD Primary Care Provider Unavailable Encounter Details Date Type Department Care Team Description 03/14/2015 Orders Only External to [facility], Pr ovider Social History Tobacco Use [...] attachment that is no t available. Provider [facility] DUMMY/OTHER/AR documented in this encounter Visit Diagnoses Not on filedocumented in this encounter Care Teams Dermatology Procedural Physician Relationship Specialty Start Date End Date Loretta Mcmahan MD PCP - General Family Practice 10/21/1402/10 documented as of this encounter
--- OUTSIDE RECORDS SUMMARY | 2022-07-04 15:04 | XMS_ITS | Encounter Summary ---
:1945 Author Organization [facility] Address [address] [place] [address] Care Team Providers Name Role Phone Loretta Mcmahan MD Primary Care Provider Unavailable Encounter Details Date Type Department Care Team Description 03/08/2015 Orders Only External to Alfonso Carlson MD [address] [place], [place] [address] (Wo rk) Social History [...] on filedocumented in this encounter Care Teams Rn Hospital Relationship Specialty Start Date End Date Loretta Mcmahan MD PCP - General Family Practice 10/21/1402/10 documented as of this encounter
--- OUTSIDE RECORDS SUMMARY | 2022-07-04 15:04 | XMS_ITS | Encounter Summary ---
:1945 Author Organization [employer] Address [address], [place] [address] Care Team Providers Name Role Phone Loretta Mcmahan MD Primary Care Provider Unavailable Reason for Visit Reason Onset Date Comments APPOINTMENT REQUEST 12/03/2014 Encounter Details Date Type Department Care Team Description 12/03/2014 Telephone Specialty Center 401 May Randle, APPOINTMENT REQUEST Physical Medicine MD 401 [facility]. [address] [place] [address] [place] [address] [phone] (Wo rk) Social History Tobacco Use Types Packs/Day Years Used Date Smoking Tobacco: Never Smokeless Tobacco: Never Alcohol Use Standard Drinks/Week Comments No 0 (1 standard drink = 0.6 oz pure alcoho l) Sex Assigned at Date Recorded Male 08/06/2021 5:59 PM CDT documented as of this encounter Nursing Notes Jaqueline Milian - 12/03/2014 4:13 PM CST [employer]raiser [employer] called and informed her that pt appt was approved by Dr. Randle. LAGE FRAMER Kaleigh Shah RN - 12/03/2014 3:36 PM CST MD approved appt Kaleigh Shah RN 12/03/2014, 3:36 PM LAGE FRAMER Kaleigh Shah, RN - 12/03/2014 9:04 AM CST Patient's reports her MD cleared the appt via you- it is one of your held appt's. Did you want us to schedule Jeff Cullen 12/07 at 1:45pm? LAGE FRAMER Jaqueline Milian - 12/03/2014 8:57 AM CST Pt calling stating that she was told to schedule appt with Dr. Randle on Dec 07 @ 1:45. PleaseAdvise LAGE FRAMER documented in this encounter Plan of Treatment Not on filedocumented as of this encounter Visit Diagnoses Not on filedocumented in this encounter Care Teams Contract Processor Relationship Specialty Start Date End Date Loretta Mcmahan MD PCP - General Family Practice 10/21/1402/10 documented as of this encounter
--- OUTSIDE RECORDS SUMMARY | 2022-07-04 15:04 | XMS_ITS | Encounter Summary ---
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 [place] [address] [place], [place] [phone] (Wo rk) Social History Tobacco Use Types [...] site documented in this encounter Care Teams Marketing Content Manager Relationship Specialty Start Date End Date Loretta Mcmahan MD PCP - General Family Practice 10/21/1402/10 documented as of this encounter
--- OUTSIDE RECORDS SUMMARY | 2022-07-04 15:04 | XMS_ITS | Encounter Summary ---
:1945 Author Organization [facility] Address [address] [place] [address] Care Team Providers Name Role Phone Loretta Mcmahan MD Primary Care Provider Unavailable Encounter Details Date Type Department Care Team Description 02/09/2015 Therapy [facility] Trudi Raymundo, PT Gait abnormality (Primary Dx); Physical Therapy [address] Paraplegia; [address] [place], [place] [phone] Social History Tobacco Use Types Packs/Day Years [...] PHYSICAL THERAPY - DISCHARGE NOTE Jeff Cullen [id number] 1945 Payor: MEDICARE Plan: MEDICARE [id number] Product Type: Medicare Referring Provider: May Randle [...] wheelchair evaluation. Pt received the equipment from [facility] Pt is now considered discharged from PT due to all goals met. Trudi Raymundo PT 02/09/2015 documented in this encounter Plan of Treatment Not on filedocumented as of this encounter Visit Diagnoses Diagnosis Gait abnormality - Primary Abnormality of gait Paraplegia (HRC) Paraplegia Osteoporosis (HRC) Osteoporosis, unspecified documented in this encounter Care Teams Net Ui Developer Relationship Specialty Start Date End Date Loretta Mcmahan MD PCP - General Family Practice 10/21/1402/10 documented as of this encounter
--- OUTSIDE RECORDS SUMMARY | 2022-07-04 15:04 | XMS_ITS | Encounter Summary ---
:1945 Author Organization [facility] Address [address] [address] Care Team Providers Name Role Phone Loretta Mcmahan MD Primary Care Provider Unavailable Reason for Visit Procedure/Equipment (Routine) - Closed Specialty Diagnoses / Procedures Referred By Contact Refer red To Contact Diagnoses Left arm numbness Garry Neff MD [address] [place] [address] Referral ID Status Reason Start Date Expiration Date Visits Requ ested Visits Authorized [id number] Closed 03/03/2015 06/01/2016 1 1 Encounter Details Date Type Department Care Team Description 03/24/2015 Office Visit [facility] Kelsey Thomas Cer vical radiculopathy (Primary Dx); Neurology EEG/EMG Carpal tunnel syndrome, unspecified late rality [354.0] [address] [place] [address] S [phone] [place] [address] (Wo rk) Social History Tobacco [...] concerns, please contact us. Call for the [facility] in [place]. Call for the [facility] in [place]. documented in this encounter Progress Notes Kelsey Thomas MD - 03/24/2015 1:52 PM CDT electromyography completed Has wrist brace Prelim Dr Neff documented in this encounter Plan of Treatment Not on filedocumented as of this encounter Visit Diagnoses Diagnosis Cervical radiculopathy - Primary Brachial neuritis or radiculitis nos Carpal tunnel syndrome, unspecified late rality [354.0] documented in this encounter Care Teams Chain Saw Driver Relationship Specialty Start Date End Date Loretta Mcmahan MD PCP - General Family Practice 10/21/1402/10 documented as of this encounter
--- OUTSIDE RECORDS SUMMARY | 2022-07-04 15:04 | XMS_ITS | Encounter Summary ---
:1945 Author Organization [facility] Address [address] [place] [address] Care Team Providers Name Role Phone Loretta Mcmahan MD Primary Care Provider Unavailable Encounter Details Date Type Department Care Team Description 12/27/2014 Orders Only External to Alfonso Neff MD [address] [place] [phone] (Wo rk) Social History Tobacco [...] 12/27/2014 12:00 AM Resul ts for this LEAD SUPPLY WORKER procedure are i n the results section. documented in this encounter Results OUTSIDE IMAGING (12/27/2014 12:00 AM LEAD SUPPLY WORKER) Anatomical Region Laterality Modality Other Specimen (Source) Anatomical Location Collection Method / Collectio n Time Received Time / Laterality Volume 12/27/2014 Narrative This result has an attachment that is no t available. Garry Neff MD RAD_1 documented in this encounter Visit Diagnoses Not on filedocumented in this encounter Care Teams Shipping Assistant Relationship Specialty Start Date End Date Loretta Mcmahan MD PCP - General Family Practice 10/21/1402/10 documented as of this encounter
--- OUTSIDE RECORDS SUMMARY | 2022-07-04 15:04 | XMS_ITS | Encounter Summary ---
:1945 Author Organization [facility] Address [address] [address] Care Team Providers Name Role Phone Franklin Squires MD Primary Care Provider Encounter Details Date Type Department Care Team Description 12/14/2014 Correspondence [facility] May Randle TAILED PRODUCT 401 Physical Kirsten Cleemnte MD DESCRIPTION [address] [place] [address] [place], [place] [phone] Social History Tobacco Use Types Packs/Day Years [...] on filedocumented in this encounter Care Teams Pharmacy Messenger Relationship Specialty Start Date End Date Franklin Squires MD PCP - General Family Practice 03/08/[address] [place] [address] [facility] [address] documented as of this encounter
--- OUTSIDE RECORDS SUMMARY | 2022-07-04 15:04 | XMS_ITS | Encounter Summary ---
:1945 Author Organization [facility] Address [address], [place] [address] Care Team Providers Name Role Phone Franklin Squires MD Primary Care Provider Encounter Details Date Type Department Care Team Description 06/07/2015 [facility], MRI SAFETY SHEET [address] [place] [address] [place] [address] Social History Tobacco Use Types Packs/Day Years [...] on filedocumented in this encounter Care Teams Normalizer Relationship Specialty Start Date End Date Franklin Squires MD PCP - General Family Practice 03/08/[address] [place] [address] [place] [address] documented as of this encounter
--- OUTSIDE RECORDS SUMMARY | 2022-07-04 15:05 | XMS_ITS | Encounter Summary ---
:1945 Author Organization [facility] [address] [address] Care Team Providers Name Role Phone Franklin Squires MD Primary Care Provider Encounter Details Date Type Department Care Team Description 11/10/2014 Correspondence [facility] Trudi Raymundo, PT LETTER OF MEDICAL Physical Therapy [address] [place] [phone] Social History Tobacco Use Types Packs/Day Years [...] on filedocumented in this encounter Care Teams General Sales Manager Relationship Specialty Start Date End Date Franklin Squires MD PCP - General Family Practice 03/08/[address] [place] [address] [facility] [place] [address] documented as of this encounter
--- OUTSIDE RECORDS SUMMARY | 2022-07-04 15:05 | XMS_ITS | Encounter Summary ---
:1945 Author Organization [facility] Address [address], [place] [address] Care Team Providers Name Role Phone Franklin Squires MD Primary Care Provider Encounter Details Date Type Department Care Team Description 09/07/2014 Correspond[facility] Radiology, MRI SAFETY SHEET [address] [place] [address] [place] [address] Social History Tobacco Use Types Packs/Day Years [...] on filedocumented in this encounter Care Teams Internal Controls Manager Relationship Specialty Start Date End Date Franklin Squires MD PCP - General Family Practice 03/08/[address] [place], [place] [address] [address] documented as of this encounter
--- OUTSIDE RECORDS SUMMARY | 2022-07-04 15:05 | XMS_ITS | Encounter Summary ---
:1945 Author Organization [facility] Address [address], [place] [address] Care Team Providers Name Role Phone Loretta Mcmahan MD Primary Care Provider Unavailable Reason for Visit Reason Onset Date Comments Refill 11/16/2014 gabapentin Encounter Details Date Type Department Care Team Description 11/16/2014 Refill Specialty Center 401 Zelalem Cohen , Refill (gabapentin) Interventional Pain DO Management [address] [place] [phone] (Wo rk) Social History Tobacco Use Types [...] per provider note below. Mireya Gillette RN [facility] AND HEARING CLINIC DIRECTOR Zelalem Cohen MD - 11/16/2014 3:36 PM CST Yes as noted with sylvia Cohen CH AND HEARING CLINIC DIRECTOR Mireya Gillette RN - 11/16/2014 11:09 AM [...] 4. F/u with Dr. Shelley in neurosurgery CH AND HEARING CLINIC DIRECTOR documented in this encounter Plan of Treatment Not on filedocumented as of this encounter Visit Diagnoses Not on filedocumented in this encounter Care Teams Heat Treating Operator Relationship Specialty Start Date End Date Loretta Mcmahan MD PCP - General Family Practice 10/21/1402/10 documented as of this encounter
--- OUTSIDE RECORDS SUMMARY | 2022-07-04 15:05 | XMS_ITS | Encounter Summary ---
:1945 Author Organization [facility] Address [address] [place] [address] Care Team Providers Name Role Phone No Primary/Referring, Phy Primary Care Provider Unavailable Reason for Referral Consult/Transfer Care (Routine) - Closed Specialty Diagnoses / Procedures Referred By Contact Refer red To Contact Diagnoses Seizure (HRC) Cooper Shelley MD [address] [place] [id number] Referral ID Status Reason Start Date Expiration Date Visits Requ ested Visits Authorized [id number] Closed 09/17/2014 12/17/2015 1 1 Scheduling Instructions To be scheduled with Dr. Winters Your provider [facility] You may call [phone] to schedule your appoi ntment. If you prefer, a bumper operator will contact you within the next 3 business d ays to assist you in setting up this appointment. TABLE FARM MANAGER Reason for Visit Reason Comments EXAM,POSTOP DOS 07/28/14 Consult/Transfer Care (Routine) - Closed Specialty Diagnoses / Procedures Referred By Contact Refer red To Contact Neurosurgery Molly Diaz PA-C [address] [place], [place] [address] Referral ID Status Reason Start Date Expiration Date Visits Requ ested Visits Authorized [id number] Closed 08/02/2014 11/01/2015 1 1 Encounter Details Date Type Department Care Team Description 09/17/2014 Office Visit [facility] Jose Shelley MD Seizure (Primary Dx) [address] [place] [address] [place] [address] [place] [address] (Wo rk) Social History Tobacco Use Types [...] Comments Blood Pressure 74/50 09/17/2014 1:53 PM VEGETABLE FARM MANAGER Pulse 99 09/17/2014 1:52 PM VEGETABLE FARM MANAGER Temperature 35.6 ??C (96 ??F) 09/17/2014 1:52 PM VEGETABLE FARM MANAGER Respiratory Rate 17 09/17/2014 1:52 PM VEGETABLE FARM MANAGER Oxygen Saturation - - Inhaled Oxygen Concentration [...] understanding. Please call the Neurosurgery/Spine Clinic at [phone] option #3 with any further questions or concerns. TABLE FARM MANAGER documented in this encounter Progress Notes Molly [...] drainage from wound. Was admitted recently to [facility] for occlusive LE DVT. At that time [...] coordinate this with another appointment in the [facility] and that it is not urgent. [...] where used in counseling. Molly Diaz PA-C TABLE FARM MANAGER documented in this encounter Plan of Treatment Scheduled Referrals Name Type Priority Associated Diagnoses Order S chedule NEUROLOGY CONSULT-ADULTS Referral Routine Seizure Ord ered: 09/17/2014 documented as of this encounter Visit Diagnoses Diagnosis Seizure (HRC) - Primary Other convulsions documented in this encounter Care Teams Sales Data Analyst Relationship Specialty Start Date End Date No Primary/Referring, Phy PCP - General 09/07/14 1 12/20/13 documented as of this encounter
--- OUTSIDE RECORDS SUMMARY | 2022-07-04 15:05 | XMS_ITS | Encounter Summary ---
:1945 Author Organization [facility] Address [address] [address] Care Team Providers Name Role Phone No Primary/Referring, Phy Primary Care Provider Unavailable Reason for Visit Reason Comments Refill Encounter Details Date Type Department Care Team Description 09/16/2014 Refill Specialty Center 401 Zelalem Cohen, DO Refill Interventional Pain Management [address] [place] [address] [place] [address] [phone] Social History Tobacco Use Types Packs/Day Years Used Date Smoking Tobacco: Never Smokeless Tobacco: Never Alcohol Use Standard Drinks/Week Comments No 0 (1 standard drink = 0.6 oz pure alcoho l) Sex Assigned at Date Recorded Male 08/06/2021 5:59 PM CDT documented as of this encounter Nursing Notes Loree Garcia RN - 09/17/2014 1:15 PM CST Rx signed TAILOR Zelalem Cohen MD - 09/17/2014 12:58 PM CST cymbalta as noted Dr. Benito Cohen TAILOR Paulina Kumari RN - 09/16/2014 10:09 AM [...] 4. F/u with Dr. Shelley in neurosurgery TAILOR documented in this encounter Plan of Treatment Not on filedocumented as of this encounter Visit Diagnoses Not on filedocumented in this encounter Care Teams Day Worker Relationship Specialty Start Date End Date No Primary/Referring, Ottoniel PCP - General 09/07/14 1 12/20/13 documented as of this encounter
--- OUTSIDE RECORDS SUMMARY | 2022-07-04 15:05 | XMS_ITS | Encounter Summary ---
:1945 Author Organization [facility] Address [address] [address] Care Team Providers Name Role Phone Loretta Mcmahan MD Primary Care Provider Unavailable Reason for Visit Reason Onset Date Comments TREMORS 11/22/2014 [facility] Appointment 11/22/2014 Encounter Details Date Type Department Care Team Description 11/22/2014 Telephone Specialty Center Jose Shelley MD TREMORS; [facility] 401 NeuroSurgery 39[facility] Appointment [address] [place] [phone] (Wo rk) Social History Tobacco Use Types [...] fine motor activity, not at rest. His assistant service manager is good, no weakness. Otherwise feeling well, [...] them. Sylvia Washington RN 11/22/2014, 11:51 AM IR SERVICE CLERK Govind Dwyer - 11/22/2014 11:32 AM CST Patient's is calling. She states her has been having tremors/shaking within the last few days. She state he is also have spasm in belly area. They are wondering he should come in and have images done. Please advise which provider to schedule with as they are not sure who they should see. Thanks. IR SERVICE CLERK documented in this encounter Plan of Treatment Not on filedocumented as of this encounter Visit Diagnoses Not on filedocumented in this encounter Care Teams Photography Teacher Relationship Specialty Start Date End Date Loretta Mcmahan MD PCP - General Family Practice 10/21/1402/10 documented as of this encounter
--- OUTSIDE RECORDS SUMMARY | 2022-07-04 15:05 | XMS_ITS | Encounter Summary ---
:1945 Author Organization [facility] Address [address] [address] Care Team Providers Name Role Phone Loretta Mcmahan MD Primary Care Provider Unavailable Reason for Referral Consult/Transfer Care (Routine) - Closed Specialty Diagnoses / Procedures Referred By Contact Refer red To Contact Mónica Winters MD [address] [place] [address] Referral ID Status Reason Start Date Expiration Date Visits Requ ested Visits Authorized [id number] Closed 11/19/2014 02/18/2016 1 1 Scheduling Instructions Your provider has recommended an appoint ment with [facility]. You may call [phone] to maxim edule your appointment. If you prefer, a mate fishing vessel will contact you within the ne xt 3 business days to assist you in setting up this appointment. S CENTER ASSOCIATE Reason for Visit Reason Comments CONSULT seizure medication Consult/Transfer Care (Routine) - Closed Specialty Diagnoses / Procedures Referred By Contact Refer catina To Contact Diagnoses Seizure (HRC) Cooper Shelley MD [address] [place] [address] Referral ID Status Reason Start Date Expiration Date Visits Requ ested Visits Authorized [id number] Closed 09/17/2014 12/17/2015 1 1 Encounter Details Date Type Department Care Team Description 11/19/2014 Office Visit Specialty Center Karmen Winters ons, unspecified convulsion type (Primary Dx); 401 Neurology Clinic Mónica Kathleen MD Paraplegia; 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 --Macy Ashford, RN [phone] Mónica Winters MD Neurology S CENTER ASSOCIATE documented in this encounter Progress Notes Mónica [...] 1999 S/p resection by Dr. Glasgow at [place] in 05/2000. However resection was incomplete due [...] for spasticity of lower extremities. ??? Osteoporosis interactive multimedia designer wheelchair since 2006 ??? Leg fracture, left [...] after 20 yrs service. Also workedat [employer] [facility] until tumor in spine in 1999. reports [...] me in 6 months. --Macy Ashford, RN [phone] Total time spent with this patient was 60 minutes. >50% of this time was spent on counseling and coordinating care. This document has been created with voice recognition software. Please be aware there may be unintentional word substitutions. Mónica Winters MD S CENTER ASSOCIATE documented in this encounter Plan of Treatment Scheduled Referrals Name Type Priority Associated Diagnoses Order S chedule SLEEP DISORDER Referral Routine Ordered: 07/2015 CONSULT-ADULT documented as of this encounter Visit Diagnoses Diagnosis Convulsions, unspecified convulsion type (HRC) - Primary Paraplegia (HRC) Paraplegia 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, unspecified site SDH (subdural hematoma) (HRC) Subdural hemorrhage documented in this encounter Care Teams Equestrian Trainer Relationship Specialty Start Date End Date Loretta Mcmahan MD PCP - General [facility] Practice 10/21/1402/10 documented as of this encounter
--- OUTSIDE RECORDS SUMMARY | 2022-07-04 15:05 | XMS_ITS | Encounter Summary ---
:1945 Author Organization [facility] Address [address], [place] [address] Care Team Providers Name Role Phone No Primary/Referring, Phy Primary Care Provider Unavailable Reason for Visit Reason Onset Date Comments Appointment 09/20/2014 Encounter Details Date Type Department Care Team Description 09/20/2014 Telephone [facility] Shin Calderón MD Appointment at [address] [address] [place] [address] [phone] Social History Tobacco Use Types Packs/Day Years Used Date Smoking Tobacco: Never Smokeless Tobacco: Never Alcohol Use Standard Drinks/Week Comments No 0 (1 standard drink = 0.6 oz pure alcoho l) Sex Assigned at Date Recorded Male 08/06/2021 5:59 PM CDT documented as of this encounter Nursing Notes Sheron Martinez RN - 09/20/2014 12:02 PM CST [employer] called and told them of appt time. [...] end of September. Thank you Jaki Koch G FRAME GRINDER OPERATOR documented in this encounter Plan of Treatment Not on filedocumented as of this encounter Visit Diagnoses Not on filedocumented in this encounter Care Teams Field Recorder Relationship Specialty Start Date End Date No Primary/Referring, Phy PCP - General 09/07/14 1 12/20/13 documented as of this encounter
--- OUTSIDE RECORDS SUMMARY | 2022-07-04 15:05 | XMS_ITS | Encounter Summary ---
:1945 Author Organization [facility] Address [address] [place] [address] Care Team Providers Name Role Phone No Primary/Referring, Phy Primary Care Provider Unavailable Reason for Visit Reason Onset Date Comments Other 10/06/2014 Encounter Details Date Type Department Care Team Description 10/06/2014 Telephone [facility] Trudi Raymundo, PT Other Physical Therapy [address] [place] [address] [place] [address] [phone] Social History Tobacco Use Types Packs/Day Years Used Date Smoking Tobacco: Never Smokeless Tobacco: Never Alcohol Use Standard Drinks/Week Comments No 0 (1 standard drink = 0.6 oz pure alcoho l) Sex Assigned at Date Recorded Male 08/06/2021 5:59 PM CDT documented as of this encounter Progress Notes Neeraj Smalls MD - 10/06/2014 5:27 PM TOPPIECE CHOPPER Addended by: NEERAJ SMALLS on: 10/06/2014 05:27 PM Modules accepted: Orders IECE CHOPPER documented in this encounter Nursing Notes Neeraj Smalls MD - 10/06/2014 5:27 PM CST Order entered. Neeraj Smalls MD IECE CHOPPER Trudi Raymundo PT - 10/06/2014 3:48 PM [...] complications. An appointment will be scheduled at [facility] for a re evaluation for wheelchair seating and a home trial will be completed as necessary. [facility] will be involved. Patient will be called to schedule this appointment. Heather was in agreement with this plan. IECE CHOPPER documented in this encounter Plan of Treatment Not on filedocumented as of this encounter Visit Diagnoses Diagnosis Paraplegia (HRC) - Primary Paraplegia Edema Back pain Backache, unspecified documented in this encounter Care Teams Projection Printer Relationship Specialty Start Date End Date No Primary/Referring, Ottoniel PCP - General 09/07/14 1 12/20/13 documented as of this encounter
--- OUTSIDE RECORDS SUMMARY | 2022-07-04 15:05 | XMS_ITS | Encounter Summary ---
:1945 Author Organization [facility] Address [address], [place] [address] Care Team Providers Name Role Phone Loretta [...] on filedocumented in this encounter Care Teams Copier And Printer Field Technician Relationship Specialty Start Date End Date Loretta Mcmahan MD PCP - General Family Practice 10/21/1402/10 documented as of this encounter
--- OUTSIDE RECORDS SUMMARY | 2022-07-04 15:05 | XMS_ITS | Encounter Summary ---
:1945 Author Organization [facility] Address [address] [address] Care Team Providers Name Role Phone Loretta Mcmahan MD Primary Care Provider Unavailable Reason for Visit Reason Onset Date Comments Medication Request 10/22/2014 Encounter Details Date Type Department Care Team Description 10/22/2014 Telephone Specialty Center 401 Yordy Shelley MD Medication Request NeuroSurgery 3931 [facility] [address] [place] [phone] (Wo rk) Social History Tobacco Use Types [...] have refill. Refill sent to [facility] [place]. RN updated patient . Devin Cordova RN [...] leave detailed message on your voicemail? yes ON CLEANER documented in this encounter Plan of Treatment Not on filedocumented as of this encounter Visit Diagnoses Not on filedocumented in this encounter Care Teams Pullman Car Clerk Relationship Specialty Start Date End Date Loretta Mcmahan MD PCP - General Family Practice 10/21/1402/10 documented as of this encounter
--- OUTSIDE RECORDS SUMMARY | 2022-07-04 15:05 | XMS_ITS | Encounter Summary ---
:1945 Author Organization [facility] Address [address] [address] Care Team Providers Name Role Phone No Primary/Referring, Phy Primary Care Provider Unavailable Reason for Visit Procedure/Equipment (Routine) - Incomplete Specialty Diagnoses / Procedures Referred By Contact Refer red To Contact Procedures Molly Diaz PA-C CT HEAD (ADULT) [address] [place], [place] [address] Referral ID Status Reason Start Date Expiration Date Visits V isits Requested Authorized [id number] Incomplete 08/02/2014 1 1 Encounter Details Date Type Department Care Team Description 09/17/2014 Imaging [facility] Specialty Molly Diaz PA-C [place] [facility] [address] [facility] [address] [place] [address] [place] [address] [phone] Social History Tobacco Use Types Packs/Day Years [...] 09/17/2014 1:23 PM Res ults for this HIP HOP PERFORMERS procedure are i n the results section. documented in this encounter Results CT HEAD (ADULT) (09/17/2014 1:23 PM HIP HOP PERFORMERS) Anatomical Region Laterality Modality Head Computed Tomography Specimen (Source) Anatomical Collection Method Collection Time Re ceived Time Location / / Volume Laterality 09/17/2014 1:23 PM HIP HOP PERFORMERS Narrative 09/17/2014 6:02 PM HIP HOP PERFORMERS HEAD CT WITHOUT IV CONTRAST 09/17/2014 1:23 PM INDICATION: Subdural hematoma. TECHNIQUE: Head CT without IV contrast. COMPARISON: Head CT 08/26/2014 FINDINGS: Status post right parietal port crane operator niotomy. No residual or recurrent subdural hematoma. [...] CT 08/26/2014 FINDINGS: Status post right parietal port crane operator niotomy. No residual or recurrent subdural hematoma. No midline shift. Nor mal intra-axial contents. Grossly normal orbits. No paranasal sinus or mas toid inflammation of significance. CONCLUSION: 1. Resolved subdural hematoma. 2. Normal intra-axial contents. Molly Diaz PA-C RAD CT documented in this encounter Visit Diagnoses Not on filedocumented in this encounter Care Teams Process Safety Manager Relationship Specialty Start Date End Date No Primary/Referring, Phy PCP - General 09/07/14 1 12/20/13 documented as of this encounter
--- OUTSIDE RECORDS SUMMARY | 2022-07-04 15:05 | XMS_ITS | Encounter Summary ---
:1945 Author Organization [facility] Address [address], [place] [address] Care Team Providers Name Role Phone Loretta Mcmahan MD Primary Care Provider Unavailable Reason for Referral Consult/Transfer Care (Routine) - Incomplete Specialty Diagnoses / Procedures Referred By Contact Refer red To Contact Brown Blanton MD [address] [place] [address] Referral ID Status Reason Start Date Expiration Date Visits V isits Requested Authorized [id number] Incomplete 10/21/2014 11/21/2014 1 1 Scheduling Instructions If scheduling assistance is needed, ninfa duran inquire with the Hospital staff upon discharge. ROOM INTERN Procedure/Equipment (Routine) - Incomplete Specialty Diagnoses / Procedures Referred By Contact Refer red To Contact Procedures Boy Nevarez MD XR PORTABLE CHEST 1 VIEW [address] [place] [address] Referral ID Status Reason Start Date Expiration Date Visits V isits Requested Authorized [id number] Incomplete 10/20/2014 1 1 ROOM INTERN Procedure/Equipment (Routine) - Incomplete Specialty Diagnoses / Procedures Referred By Contact Refer red To Contact Procedures Boy Nevarez MD CT HEAD WITHOUT CONTRAST [address] [place] [address] Referral ID Status Reason Start Date Expiration Date Visits V isits Requested Authorized [id number] Incomplete 10/20/2014 1 1 ROOM INTERN Reason for Visit Reason Comments HEADACHE--ED Auth/Cert [...] Expiration Date Visits Requ ested Visits Authorized [id number] Closed 1 1 Encounter Details Date Type Department Care Team Description 10/20/2014 - Emergency RH C63 Boy Nevarez MD [address] [place] [address] Fever (Primary Dx); 10/21/2014 640 [facility] Brown Blanton MD [address] [place] [address] Headache; [place] [address] Sepsis; [phone] DVT (deep venou s thrombosis), unspecified laterality; Neurogenic blad swapnil; Paraplegia; UTI (lower urin adi tract infection); Back pain; Osteoporosis; Hyperparathyroi dism; Vitamin D defic iency; Tachycardia, un specified; intermediate (curr ent) use of anticoagulants; Personal histor [...] Comments Blood Pressure 161/86 10/21/2014 7:08 AM NEWSROOM INTERN Pulse 101 10/21/2014 7:08 AM NEWSROOM INTERN Temperature 37.3 ??C (99.2 ??F) 10/21/2014 7:08 AM NEWSROOM INTERN Respiratory Rate 16 10/21/2014 7:08 AM NEWSROOM INTERN Oxygen Saturation 97% 10/21/2014 7:08 AM NEWSROOM INTERN Inhaled Oxygen Concentration - - Weight 112.5 kg (248 lb) 10/21/2014 7:16 AM NEWSROOM INTERN Height 175.3 cm (5' 9) 10/20/2014 6:11 PM NEWSROOM INTERN Body Mass Index 36.62 10/20/2014 6:11 PM NEWSROOM INTERN documented in this encounter Discharge Summaries Brown Blanton MD - 10/21/2014 8:32 AM CST [facility] Discharge Summary Admit Date: 10/20/2014 [...] 30 minutes Observation discharge Brown Blanton MD [facility] Pager: [phone] This document serves as a record of services personally performed by Brown Blanton MD. It was created on his behalf by Opal Ontiveros, a trained medical clerk. The creation of this record is based on the scribe's personal observations and the provider's statements to her. The document has been checked and approved by the attending provider. --End of Report-- ROOM INTERN documented in this encounter Discharge Instructions Discharge Tamir Nathan RN - 10/21/2014 11:11 AM CST Information about future appointments scheduled by [facility] Management or Nursing (These appointments may [...] of breath Community Resources NONE Contact Information [place] [phone] For questions about your discharge instructions call the nursing unit : MIGUEL Iglesias, Emergency & Urgently Needed Care: For emergencies call 911 and/or get medical help right away. If you are a [employer] member and have medical needs after clinic hours you may call the CareLineat [phone] or . Smoking and second-hand smoke exposure: Smoking damages blood vessels, reduces the oxygen in your blood and makes your heart beat too fast. If you smoke you should quit. Everyone should avoid second- hand smoke. If you would like further assistance after your discharge, please contact [phone] or visit [email or web address] Qu[employer] can offer further [...] will also be followed by the Design Project Manager when you go in for your treatment. [...] the nursing unit desk to check out. ROOM INTERN documented in this encounter Medications at Time [...] Swati Emerson PA-C - 10/22/2014 8:28 AM NEWSROOM INTERN Quick Note: From Discharge summary Patient admitted [...] cloacae species that is sensitive to levofloxacin. ROOM INTERN Noble Harrington MD - 10/20/2014 10:13 PM [...] may have future ramifications. Noble Harrington MD ROOM INTERN documented in this encounter Consult Notes Virginia Oreilly - 10/20/2014 2:55 PM CSTAssociated Order(s): ED UR PALS SPECIALIST CONSULT ED UR Signal Worker note: Chart reviewed by ED UR Signal Worker: Inpatient telemetry admission on transfer from outside hospital w/temp there of 101, IVABs, Zosyn and Vancomycin, IVF. Virginia Oreilly RN, BSN ED UR Signal Worker [phone] ROOM INTERN documented in this encounter OR Notes H&P - Brown Blanton MD - 10/20/2014 3:02 PM CST History and Physical [facility] Date of service: 10/20/2014 Chief [...] time and more localized. Patientwas sent from [place] as CT machine was down. Has chronic [...] 2000 S/p resection by Dr. Glasgow at [place] in 05/2000. However resection was incomplete due [...] for spasticity of lower extremities. ??? 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 Leg fracture, left nontraumatic ??? Hypercholesteremia ??? Chronic constipation ??? Depression ??? Subdural hematoma, acute 2013 ??? Lower paraplegia ??? Chronic anticoagulation Past Surgical History Past Surgical History Procedure Laterality Date ??? Appendectomy ??? Vasectomy* ??? Turp incl contrl postop bleed cmpl ??? 40173 total knee arthroplasty right ??? Ivc filter [...] 1 at baseline. Lives with his in [place]. Family History Family History Problem Relation Age [...] (*) 0.9 - 1.1 Narrative: Performed at [facility], [address] [place] [address] APTT (ACTIVATED PARTIAL THROMBOPLASTIN TIME Result Value Range PTT 54.4 (*) 24.0 - 37.0 sec Narrative: Performed at [facility], [address] [place] [address] HEMOGRAM/PLTS Result Value Range WBC 13.7 (*) [...] 9.4 - 12.4 fl Narrative: Performed at [facility], [address] [place] [address] 11441 BASIC METABOLIC PANEL Result Value Range SODIUM [...] IF >60 >60 ml/min/1.73m2 Narrative: Performed at [facility], [address] [place] [address] Imaging: independently read by me CT head: [...] CODE STATUS - full Brown Blanton MD [facility] Pager: [phone] This document serves as a record of services personally performed by Brown Blanton MD. It was created on his behalf by Opal Ontiveros, a trained medical clerk. The creation of this record is based on the scribe's personal observations and the provider's statements to her. The document has been checked and approved by the attending provider. ROOM INTERN documented in this encounter ED Notes Lorri Banks RN - 10/20/2014 5:24 PM CST Bilateral LE edema noted, increased slightly on left left, pedal pulses palpable. Report called to Elise PADILLA. Will change pt's urine bag and remove pj pants prior to admisission ROOM INTERN Lorri Banks RN - 10/20/2014 4:47 PM CST Pt repositioned in bed, urine bag emptied 950ml. Pt given lunch and juice, continues to wait for admission. ROOM INTERN Lorri Banks RN - 10/20/2014 4:28 PM CST Report from VALERIE Borges. C/o lower back pain. Aware of pending admission. ROOM INTERN Ivette Turipn RN - 10/20/2014 4:15 PM CST Report given to VALERIE Blackmon. ROOM INTERN Paz Barba RN - 10/20/2014 3:35 PM CST Admission pending. Vitals stable. Pain tolerable. Family at bedside. ABX infusing. Report given to Ivette PADILLA ROOM INTERN Jayna Covarrubias PA-C - 10/20/2014 3:07 PM CST [facility] Sign Out Note Transfer of care from Dr. Gallagher. See separate Emergency Department note. The patient was evaluated by the previous provider for headache, transfer from [facility] secondary to CT not working. Reports fever [...] positive for infection. Disposition: Admitted without incident. ROOM INTERN Boy Nevarez MD - 10/20/2014 12:31 PM CST [facility] Attending Supervision Note I performed [...] Disposition: inpatient admission Author: Boy Nevarez MD ROOM INTERN Paz Barba RN - 10/20/2014 11:15 AM CST Patient was transferred from [facility] in [place]. Patient has hx of SDH onset of headache and dizziness 12 hours prior to arrival at [facility]. Patient is on coumadin. CT scanner was down at [facility]. Patient was given Fentanyl 50 mcg X 2 in route. Patient has a green, colostomy, and paraplegia. ROOM INTERN Philly Yanes RN - 10/20/2014 9:33 AM CST Nurse report agrees with MD report ROOM INTERN Brown Souza MD - 10/20/2014 9:21 AM CST H/o tumor, paraplegia, SDH - on coumadin (INR 2.48) - severe MORAN this morning - neuro intact. Concerning for bleed - CT is not working. Coming from [place]. Brown Souza MD ROOM INTERN Tom Gallagher MD - 10/20/2014 12:00 AM [...] fever this morning. Patient was seen at [facility] and due to the headache with coumadinization [...] Dictated: 10/20/2014 16:05:58 Transcribed: 10/20/2014 16:19:44 Job: [id number] Doc: [id number] cc: ROOM INTERN documented in this encounter Plan of Treatment Scheduled Referrals Name Type Priority Associated Diagnoses Order S chedule Follow up with your Referral Routine Ordered: 10/21/2014 primary care physician documented as of this encounter Procedures Procedure Name Priority Date/Time Associated Comments Diagnosis BASIC METABOLIC PANEL Routine 10/21/2014 5:20 AM Results for this NEWSROOM INTERN procedure are i n the results section. COMPLETE BLOOD COUNT-NO Routine 10/21/2014 5:20 AM Results for this DIFF NEWSROOM INTERN procedure are i n the results section. MAGNESIUM Routine 10/21/2014 5:20 AM Results f or this NEWSROOM INTERN procedure are i n the results section. PHOSPHORUS Routine 10/21/2014 5:20 AM Results f or this NEWSROOM INTERN procedure are i n the results section. INR/PROTIME Routine 10/21/2014 5:20 AM Results f or this NEWSROOM INTERN procedure are i n the results section. URINE CULTURE Routine 10/20/2014 2:50 PM Results for this NEWSROOM INTERN procedure are i n the results section. UA CONDITIONAL UC STAT 10/20/2014 2:50 PM Resu lts for this NEWSROOM INTERN procedure are i n the results section. XR PORTABLE CHEST 1 STAT 10/20/2014 2:21 PM Re sults for this VIEW NEWSROOM INTERN procedure are i n the results section. BB HOLD TUBE ([facility] Routine 10/20/2014 11:34 Re sults for this ONLY) AM NEWSROOM INTERN procedure are i n the results section. BASIC METABOLIC PANEL STAT 10/20/2014 11:34 Re sults for this AM NEWSROOM INTERN procedure are i n the results section. APTT (ACTIVATED PARTIAL STAT 10/20/2014 11:34 Results for this THROMBOPLASTIN TIME AM NEWSROOM INTERN procedur e are in the results section. COMPLETE BLOOD COUNT-NO STAT 10/20/2014 11:34 Results for this DIFF AM NEWSROOM INTERN procedure are i n the results section. INR/PROTIME STAT 10/20/2014 11:34 Results for this AM NEWSROOM INTERN procedure are i n the results section. CT HEAD WO IV CONT STAT 10/20/2014 11:32 Resul ts for this AM NEWSROOM INTERN procedure are i n the results section. documented in this encounter Results (ABNORMAL) INR/PROTIME (10/21/2014 5:20 AM NEWSROOM INTERN) P athologist Signature Protime 26.9 (H) 12.0 - 14.5 [facility] INR 2.5 (H) 0.9 - 1.1 [facility] Specimen Anatomical Collection Method Collection Time Receive d Time (Source) Location / / Volume Laterality 10/21/2014 5:20 AM 4 5:21 NEWSROOM INTERN AM NEWSROOM INTERN Narrative [facility] - 10/21/2014 5:39 AM CS T Performed at [facility] , [address] [place] [address] Brown Blanton MD LAB_1 Performing Organization Address City/State/ZIP Code Phon e Number [address] [address] Phosphorus (10/21/2014 5:20 AM NEWSROOM INTERN) athologist Signature Phosphorus 3.9 2.5 - 4.5 [facility] mg/dl [facility] Specimen Anatomical Collection Method Collection Time Receive d Time (Source) Location / / Volume Laterality 10/21/2014 5:20 AM 4 5:21 NEWSROOM INTERN AM NEWSROOM INTERN [facility] - 10/21/2014 5:41 AM CS T Performed at [facility] , [address] [place] [address] Brown Blanton MD LAB_1 Performing Organization Address City/[facility]/ZIP [facility] Phon e Number [address] [address] Magnesium (10/21/2014 5:20 AM NEWSROOM INTERN) athologist Signature Magnesium 1.7 1.6 - 2.3 [facility] mg/dl [facility] Specimen Anatomical Collection Method Collection Time Receive d Time (Source) Location / / Volume Laterality 10/21/2014 5:20 AM 4 5:21 NEWSROOM INTERN AM NEWSROOM INTERN [facility] - 10/21/2014 5:41 AM CS T Performed at [facility] , [address] [place] [address] Brown Blanton MD LAB_1 Performing Organization Address City/State/ZIP Code Phon e Number [address] [address] Basic Metabolic Panel (K, Na, CO2, Cl, Gluc, BUN, Creat, Ca) (Chem 8) (10/21/2014 5:20 AM NEWSROOM INTERN) athologist Signature Sodium 142 135 - 145 [...] Est., If >60 >60 [facility] Black ml/min/1.7 [facility] 3m2 Specimen Anatomical Collection Method Collection Time Receive d Time (Source) Location / / Volume Laterality 10/21/2014 5:20 AM 4 5:21 NEWSROOM INTERN AM NEWSROOM INTERN [facility] - 10/21/2014 5:41 AM CS T Performed at [facility] , [address] [place] [address] Brown Blanton MD LAB_1 Performing Organization Address [facility] Phon e Number [address] [id number] (ABNORMAL) CBC with platelets (10/21/2014 5:20 AM NEWSROOM INTERN) P athologist Signature WBC 11.1 (H) 4.0 - 11.0 [facility] RBC 3.82 (L) 4.5 - 5.9 [facility] Hemoglobin 11.5 (L) 13.5 - 17.5 [facility] g/dl [facility] HCT 35.0 (L) 41.0 - 53.0 [facility] MCV 91.6 80 - 100 fl [facility] MCH 30.1 26 - 34 pg [facility] MCHC 32.9 32 - 36 [facility] g/dl [facility] RDW 14.0 11.5 - 14.5 [facility] Platelets 120 (L) 150 - 450 [facility] MPV 10.2 9.4 - 12.4 [facility] Specimen Anatomical Collection Method Collection Time Receive d Time (Source) Location / / Volume Laterality 10/21/2014 5:20 AM 4 5:21 NEWSROOM INTERN AM NEWSROOM INTERN Narrative [facility] - 10/21/2014 5:28 AM CS T Performed at [facility] , [address] [place] [address] Brwon Blanton MD LAB_1 Performing Organization Address [facility] Phon e Number [address] [address] URINE CULTURE (10/20/2014 2:50 PM NEWSROOM INTERN) Component Value Ref Test Analysis Performed At [facility] Range Method Time Signature Specimen Urine [facility] Description HOSPITAL Special Unspecified [facility] Requests [facility]OSPITAL Culture > 100,000 col/ml [facility] Enterobacter HOSPITAL cloacae Culture > 100,000 col/ml [facility] Enterococcus HOSPITAL species Report Status Final 10/23/2014 [facility] Organism > 100,000 col/ml [facility] Enterobacter HOSPITAL cloacae Organism > 100,000 col/ml [facility] Enterococcus HOSPITAL species Specimen Anatomical Collection Method Collection Time Receive d Time (Source) Location / / Volume Laterality 10/20/2014 2:50 PM 4 4:02 NEWSROOM INTERN PM NEWSROOM INTERN Narrative [facility] - 10/23/2014 2:03 PM CS T Performed at [facility] , [address] [place] [address] Organism Antibiotic Method Susceptibility > 100,000 col/ml [...] Susceptible SUSCEPTIBLE > 100,000 col/ml [facility] RH ROCHELLE <=0.25 enterobacter cloacae Susceptible SUSCEPTIBLE [...] Organization Address City/State/ZIP Code Phon e Number [address] [address] (ABNORMAL) UA CONDITIONAL UC (10/20/2014 2:50 PM NEWSROOM INTERN) [facility] Method Time Signature Urine Color Yellow [facility] Urine Clarity Hazy [facility] HOSPITAL Specific 1.009 1.005 - [facility] [place],Ur 1.030 HOSPITAL pH, Urine 6.0 4.5 - 8.0 [facility] Protein, Urine 30 (A) NEG mg/dl [facility] Glucose, Urine Negative NEG mg/dl [facility] Ketones, Urine Negative NEG mg/dl [facility] Urobil, Urine <2.0 <2.0 [facility] mg/dl [facility] Bilirubin, Negative NEG [facility] Urine [facility] Blood, Urine Moderate NEG [facility] (A) [facility] Nitrite, Urine Negative NEG [facility] Leukocyte Large (A) NEG [facility] Est., Ur HOSPITAL RBC'S <1 0 - 3 [facility] /hpf HOSPITAL WBC'S 542 (H) 0 - 5 [facility] /hpf [facility]OSPITAL WBC Clumps Present (A) NEG [facility] Bact Many [facility] Crystals, Present [facility] Amorphous HOSPITAL Specimen Anatomical Collection Method Collection Time Receive d Time (Source) Location / / Volume Laterality Urine specimen 10/20/2014 2:50 PM 014 3:16 (specimen) NEWSROOM INTERN PM NEWSROOM INTERN Narrative [facility] - 10/20/2014 3:38 PM CS T Performed at [facility] , [address] [place] [address] Boy Nevarez MD LAB_1 Performing Organization Address City/[facility] Phon e Number [address] [address] XR PORTABLE CHEST 1 VIEW (10/20/2014 2:21 PM NEWSROOM INTERN) Anatomical Region Laterality Modality Chest, Lung Computed Radiography Specimen (Source) Anatomical Collection Method Collection Time Re ceived Time Location / / Volume Laterality 10/20/2014 2:21 PM NEWSROOM INTERN Narrative 10/20/2014 2:26 PM NEWSROOM INTERN XR PORT CHEST 1 VW 10/20/2014 2:21 [...] Nevarez MD RAD PORTABLE BB HOLD TUBE ([facility] ONLY) (10/20/2014 11:34 AM NEWSROOM INTERN) Patholo gist Method Time Signature BB Hold Tube Blood Bank [facility] expires in 3 days Specimen Anatomical Collection Method Collection Time Receive d Time (Source) Location / / Volume Laterality 10/20/2014 11:34 10/20/2014 AM NEWSROOM INTERN 11:54 AM NEWSROOM INTERN Narrative [facility] - 10/20/2014 11:[address] Performed at [facility] , [address] [place] [address] Boy Nevarez MD LAB_1 Performing Organization Address City/[facility] Phon e Number [address] [address] Basic Metabolic Panel (10/20/2014 11:34 AM NEWSROOM INTERN) P athologist Signature Sodium 140 135 - 145 [facility] mmol/L HOSPITAL Potassium 3.9 3.5 - 5.3 [facility] mmol/L HOSPITAL Chloride 100 95 - 106 [facility] mmol/L [facility] CO2 29 22 - 30 [facility] mmol/L [facility]OS[facility] Anion Gap 11 7 - 16 [facility] (calc.) mmol/L [facility]OSPITAL Glucose 109 70 - 180 [facility] mg/dl HOSPITAL Calcium 8.4 8.4 - 10.2 [facility] mg/dl HOSPITAL BUN 15 7 - 20 [facility] mg/dl HOSPITAL Creatinine 0.91 0.66 - [facility] 1.25 mg/dl HOSPITAL GFR, Estimated >60 >60 [facility] ml/min/1.7 [facility]OS[facility]ITAL 3m2 GFR, Est., If >60 >60 [facility] Black ml/min/1.7 [facility] 3m2 Specimen Anatomical Collection Method Collection Time Receive d Time (Source) Location / / Volume Laterality 10/20/2014 11:34 10/20/2014 AM NEWSROOM INTERN 11:53 AM NEWSROOM INTERN Narrative [facility] - 10/20/2014 12:[address] Performed at [facility] , [address] [place] [address] Boy Nevarez MD LAB_1 Performing Organization Address City/State/ZIP Code Phon e Number [address] [address] (ABNORMAL) HEMOGRAM/PLTS (10/20/2014 11:34 AM NEWSROOM INTERN) athologist Signature WBC 13.7 (H) 4.0 - 11.0 [facility] RBC 3.82 (L) 4.5 - 5.9 [facility] Hemoglobin 11.6 (L) 13.5 - 17.5 [facility] g/dl [facility] HCT 34.9 (L) 41.0 - 53.0 [facility] MCV 91.4 80 - 100 fl [facility] MCH 30.4 26 - 34 pg [facility] MCHC 33.2 32 - 36 [facility] g/dl [facility] RDW 13.9 11.5 - 14.5 [facility] Platelets 138 (L) 150 - 450 [facility] MPV 10.3 9.4 - 12.4 [facility] Specimen Anatomical Collection Method Collection Time Receive d Time (Source) Location / / Volume Laterality 10/20/2014 11:34 10/20/2014 AM NEWSROOM INTERN 11:53 AM NEWSROOM INTERN Narrative [facility] - 10/20/2014 12:[address] Performed at [facility] , [address] [place] [address] Boy Nevarez MD LAB_1 Performing Organization Address City/[facility]/ZIP [facility] Phon e Number [address] [address] (ABNORMAL) APTT (ACTIVATED PARTIAL THROMBOPLASTIN TIME (10/20/2014 11:34 AM NEWSROOM INTERN) P athologist Signature PTT 54.4 (H) 24.0 - 37.0 [facility] HOSPITAL Specimen Anatomical Collection Method Collection Time Receive d Time (Source) Location / / Volume Laterality 10/20/2014 11:34 10/20/2014 AM NEWSROOM INTERN 11:53 AM NEWSROOM INTERN Narrative [facility] - 10/20/2014 12:[address] Performed at [facility] , [address] [place] [address] Boy Nevarez MD LAB_1 Performing Organization Address City/[facility]/ZIP Code Phon e Number [address] [address] (ABNORMAL) INR/PROTIME (10/20/2014 11:34 AM NEWSROOM INTERN) P athologist Signature Protime 27.0 (H) 12.0 - 14.5 [facility] INR 2.5 (H) 0.9 - 1.1 [facility] Specimen Anatomical Collection Method Collection Time Receive d Time (Source) Location / / Volume Laterality 10/20/2014 11:34 10/20/2014 AM NEWSROOM INTERN 11:53 AM NEWSROOM INTERN Narrative [facility] - 10/20/2014 12:[address] Performed at [facility] , [address] [place] [address] Boy Nevarez MD LAB_1 Performing Organization Address City/[facility] Phon e Number [address] [address] [address] HEAD WITHOUT CONTRAST (10/20/2014 11:32 AM NEWSROOM INTERN) Anatomical Region Laterality Modality Head Computed Tomography Specimen (Source) Anatomical Collection Method Collection Time Re ceived Time Location / / Volume Laterality 10/20/2014 11:32 AM NEWSROOM INTERN Narrative 10/20/2014 11:52 [address] NEWSROOM INTERN HEAD CT WITHOUT IV CONTRAST 10/20/2014 11:32 [...] (HRC) Unspecified vitamin D deficiency Tachycardia, unspecified intermediate (current) use of anticoagulant s Long-term (current) [...] Mathur RN --- End of Report --- ROOM INTERN Plan of Care - Marimar Tomas, PharmD - 10/21/2014 11:46 AM CST [facility] Clinical Pharmacy Warfarin Consult Note Assessment: Jeff Cullen, [id number] is a 69 yr male currently receiving [...] this consult, Marimar Tomas, PharmD Pager Number: [phone] Data: Weight: 248 lb (112.492 kg) Patient's [...] IV drip --- End of Report --- ROOM INTERN Plan of Care - Tamir Mathur RN - 10/21/2014 11:03 AM CST [facility] Plan of Care Note Assessment: Allergic reaction [...] at 1000. --- End of Report --- ROOM INTERN Plan of Care - Paz Lowe RN - 10/21/2014 5:44 AM CST Problem: General Plan of Care Goal: Safety and Fall Prevention Outcome: Ongoing [facility] Plan of Care Note Assessment: fever Plan: [...] good output. --- End of Report --- ROOM INTERN Plan of Care - Paz Lowe RN - 10/21/2014 2:23 AM CST [facility]. MD Notified Note Name of MD notified: Dr. Bernstein Time of MD notification: 0100 hours and 55 minutes Reason: Temp 101.5, HR 100s. 2 tabs norco administered. Response: Maintenance IVF ordered, see MAR. Paz Lowe RN --- End of Report --- ROOM INTERN Plan of Care - Elise Bull RN - 10/20/2014 10:36 PM CST [facility]. Notified Note Name of MD notified: Juany Time of MD notification: 1000 hours and 1 minute Reason: Pt has red spots on arms after giving Zosyn. Could we get an order for benadryl? Response: Benadryl ordered. Elise Bull RN --- End of Report --- ROOM INTERN Plan of Care - Linda Powell, PharmD - 10/20/2014 6:26 PM CST [facility] Clinical Pharmacy Warfarin Consult Note Assessment: Jeff Cullen, [id number] is a 69 yr male currently receiving [...] for this consult, Linda Powell Pager Number: [phone] Data: Weight: 254 lb (115.214 kg) Patient's [...] IV drip --- End of Report --- ROOM INTERN Plan of Care - Ming Sandoval, PharmD - 10/20/2014 2:42 PM CST [facility] Pharmacy Medication History [...] contact number if available): Primary pharmacy is [facility] or [facility] Allergy comments [...] Sandoval, PharmD --- End of Report --- ROOM INTERN documented in this encounter Administered Medications Inactive Administered Medications - up to 3 most recent administrations Medication Order MAR Action Action Date Dose Rate Site acetaminophen (aka TYLENOL EXTRA Given 10/20/2014 1:18 PM NEWSROOM INTERN 1, 000 mg STRENGTH) tablet 1,000 mg 1,000 mg, Oral, NOW, On Sat10/20/14 at 1301, For 1 dose atorvastatin (aka LIPITOR) tablet 40 mg Given 10/20/2014 7:30 PM NEWSROOM INTERN 40 mg 40 mg, Oral, DAILY - 1999, First dose on Sat10/20/14 at 1999, Until Discontinued baclofen (aka LIORESAL) tablet 40 mg Given 10/21/2014 8:09 AM NEWSROOM INTERN 40 mg 40 mg, Oral, TID, First dose on Sat10/20/14 at 2000, Until Discontinued Given 10/20/2014 7:29 PM NEWSROOM INTERN 40 mg buPROPion (aka WELLBUTRIN SR) 12 hour release Given 8:09 AM NEWSROOM INTERN 150 mg tablet 150 mg 150 mg, Oral, BID, First dose on Sat10/20/14 at 2000, Until Discontinued, Tablet should be swallowed whole. Caution:Look-alike, sound-alike medication. Given 10/20/2014 7:29 PM NEWSROOM INTERN 150 mg calcium carbonate-vitamin D (aka OSCAL D) Given 10/20/2014 7 :30 PM NEWSROOM INTERN 1 Tablet 500-200 MG-UNIT tablet 1 Tab 1 Tablet, Oral, BID, First dose on Sat10/20/14 at 2000, Until Discontinued cholecalciferol (aka VITAMIN D3) tablet Given 10/20/20 6:48 PM NEWSROOM INTERN 2,000 Units TABS 2,000 Units 2,000 Units, Oral, DAILY, First dose on Sat10/20/14 at 1822, Until Discontinued diphenhydrAMINE (aka BENADRYL) caplet 25 -50 mg Given 10/21/2014 9:23 AM NEWSROOM INTERN 50 mg 25-50 mg, Oral, QID PRN, Itching, Rash, Starting on Sat10/20/14 at 2212, Until Catalina 10/21/14 at 1447 Given 10/20/2014 10:27 PM NEWSROOM INTERN 50 mg diphenhydrAMINE (aka BENADRYL) injection 50 mg Given 10/20/2014 1:27 PM NEWSROOM INTERN 50 mg 50 mg, Intravenous, ONCE, On Sat10/20/14 at 1301, For 1 dose DULoxetine (aka CYMBALTA) delayed release Given 10/21/2014 11:53 AM NEWSROOM INTERN 20 mg capsule 20 mg 20 mg, Oral, QID, First dose on Sat10/20/14 at 2000, Until Discontinued Given 10/21/2014 8:10 AM NEWSROOM INTERN 20 mg Given 10/20/2014 7:30 PM NEWSROOM INTERN 20 mg gabapentin (aka NEURONTIN) capsule 400 m g Given 10/21/2014 8:10 AM NEWSROOM INTERN 400 mg 400 mg, Oral, TID, First dose on Sat10/20/14 at 2000, Until Discontinued Given 10/20/2014 7:29 PM NEWSROOM INTERN 400 mg HYDROcodone-acetaminophen (aka NORCO) Given 10/21/2014 7:[address] 2 Tablets 5-325 MG tablet TABS 1-2 Tab 1-2 Tablet, Oral, Q4H PRN, Pain, Starting on Sat10/20/14 at 1821, Until Catalina 10/21/14 at 1447 Given 10/21/2014 1:44 AM NEWSROOM INTERN 2 Tablets Given 10/20/2014 6:48 PM NEWSROOM INTERN 2 Tablets levETIRAcetam (aka KEPPRA) tablet 1,000 mg Given 10/21/2014 8:10 AM NEWSROOM INTERN 1,000 mg 1,000 mg, Oral, Q12H (NON-STND), First dose on Sat10/20/14 at 2000, Until Discontinued, Caution: Look-alike, sound-alike medication., Indications: seizure ppx Given 10/20/2014 7:30 PM NEWSROOM INTERN 1,000 mg levoFLOXACIN (aka LEVAQUIN) tablet 500 m g Given 10/21/2014 11:53 AM NEWSROOM INTERN 500 mg 500 mg, Oral, DAILY AT 10 AM, First dose on Sat10/21/14 at 1053, Do not give within 2 hours of calcium, iron, magnesium supplements or antacids. Hold enteral feedings 1 hour before and 1 hour after dose. NG/OGT: Crush immediate-release tablet and mix with water. LORazepam (aka ATIVAN) tablet 0.5 mg Given 10/21/2014 1:44 AM NEWSROOM INTERN 0.5 mg 0.5 mg, Oral, Q4H PRN, Anxiety, Starting on Sat10/20/14 at 1821, Until Sat10/21/14 at 1447, Caution: Look-alike, sound-alike medication. metoCLOPRAMIDE (aka REGLAN) injection 10 mg Given 10/20/2014 1:33 PM NEWSROOM INTERN 10 mg 10 mg, Intravenous, ONCE, On Sat10/20/14 at 1301, For 1 dose, Risk of tardive dyskinesia increases with higher doses or long durations of metoclopramide therapy. NaCl 0.9 % infusion 1,000 mL Started 10/20/2014 1:23 PM NEWSROOM INTERN 1,000 mL 1,000 mL, Intravenous, ONCE, On Sat10/20/14 at 1301, For 1 dose, Bolus NaCl 0.9 % infusion Started 10/21/2014 2:40 AM NEWSROOM INTERN 100 mL/hr Intravenous, at 100 mL/hr, CONTINUOUS, Starting on Sat10/21/14 at 0158 niacin tablet 500 mg Given 10/21/2014 8:09 AM NEWSROOM INTERN 500 mg 500 mg, Oral, QDAY WITH MEAL, First dose on Sat10/20/14 at 1822, Until Discontinued, Give with food. Given 10/20/2014 7:30 PM NEWSROOM INTERN 500 mg piperacillin-tazobactam (aka ZOSYN) 4.5 g in Started 08/2014 2:00 PM NEWSROOM INTERN 4.5 g NaCl 0.9 % 100 mL IV piggyback 4.5 g, Intravenous, Administer over 30 Minutes, ONCE, On Sat10/20/14 at 1318, For 1 dose piperacillin-tazobactam (aka ZOSYN) 4.5 g in Started 09/2014 8:10 AM NEWSROOM INTERN 4.5 g NaCl 0.9 % 100 mL IV piggyback 4.5 g, Intravenous, Administer over 30 Minutes, Q6H (NON-STND), First dose on Sat10/20/14 at 2000 Started 10/21/2014 2:40 AM NEWSROOM INTERN 4.5 g Started 10/20/2014 8:31 PM NEWSROOM INTERN 4.5 g polyethylene glycol (aka MIRALAX) oral Given 10/21/2014 8:09 AM NEWSROOM INTERN 1 Packet powder 1 Packet 1 Packet (17 g), Oral, DAILY, First dose on Sat10/20/14 at 1822, Until Discontinued, Do not add to pre-thickened juices. Ok to add to liquid thickened with Thicken-Up. potassium chloride (aka K-DUR,KLOR-CON M) Given 10/21/2014 8:10 AM NEWSROOM INTERN 20 mEq extended release tablet 20 mEq 20 mEq, Oral, DAILY, First dose on Sat10/20/14 at 1822, Do Not Chew or Crush Tablet.Tablet may be broken in half or made into a slurry by adding water. Given 10/20/2014 6:48 PM NEWSROOM INTERN 20 mEq trimethoprim (aka TRIMPEX) tablet 100 mg Given 10/21/2014 8:23 AM NEWSROOM INTERN 100 mg 100 mg, Oral, DAILY, First dose on Sat10/20/14 at 1822 vancomycin (aka VANCOCIN) 2,000 mg in Started 10/20/2014 2:[address] 2,000 mg NaCl 0.9 % 500 mL IV piggyback 2,000 mg, Intravenous, Administer over 2 Hours, ONCE, On Sat10/20/14 at 1318, For 1 dose warfarin (aka COUMADIN) tablet 5 mg Given 10/20/2014 6:48 PM NEWSROOM INTERN 5 mg 5 mg, Oral, WARFARIN - DAILY, First dose on Sat10/20/14 at 1827, Until Discontinued, Hazardous waste disposal required Vitamin K antagonizes the effects of warfarin. Maintain consistent intake of vitamin K in the diet. documented in this encounter Active and Recently Administered Medications Times are shown in NEWSROOM INTERN. Scheduled Medication Order 10/19/2014 10/20/2014 10/21/2014 acetaminophen [...] Anxiety documented in this encounter Care Teams Solutions Specialist Relationship Specialty Start Date End Date Loretta Mcmahan MD PCP - General Family Practice 10/21/1402/10 documented as of this encounter
--- OUTSIDE RECORDS SUMMARY | 2022-07-04 15:05 | XMS_ITS | Encounter Summary ---
:1945 Author Organization [facility] Address [address] [address] Care Team Providers Name Role Phone Loretta Mcmahan MD Primary Care Provider Unavailable Encounter Details Date Type Department Care Team Description 10/21/2014 Notes/Orders [facility] Trudi Raymundo, PT Physical Therapy [address] [place] [address] [place] [address] [phone] Social History Tobacco Use Types Packs/Day Years [...] Heather took him to the ED in [facility] but their CT scan was down so they were sent to [facility]. Because of his recent SDH and presentation of a headache, a CT scan was required. They kept him over night here at [facility] and are treating him for a UTI. [...] transfers and we could further discuss tomorrow. AL AND HUMAN SERVICES ASSISTANT documented in this encounter Plan of Treatment Not on filedocumented as of this encounter Visit Diagnoses Not on filedocumented in this encounter Care Teams Cellophane Wrapping Examiner Relationship Specialty Start Date End Date Loretta Mcmahan MD PCP - General Family Practice 10/21/1402/10 documented as of this encounter
--- OUTSIDE RECORDS SUMMARY | 2022-07-04 15:05 | XMS_ITS | Encounter Summary ---
:1945 Author Organization formerly [facility] Address [address] [place] [address] Care Team Providers Name Role Phone Loretta [...] 11/30/2014 12:00 AM Resul ts for this MOTOR MAN procedure are i n the results section. documented in this encounter Results OUTSIDE IMAGING (11/30/2014 12:00 AM MOTOR MAN) Anatomical Region Laterality Modality Other Specimen (Source) Anatomical Location Collection Method / Collectio n Time Received Time / Laterality Volume 11/30/2014 Narrative This result has an attachment that is no t available. Phy No Primary/Referring RAD_1 documented in this encounter Visit Diagnoses Not on filedocumented in this encounter Care Teams Application Designer Relationship Specialty Start Date End Date Loretta Mcmahan MD PCP - General Family Practice 10/21/1402/10 documented as of this encounter
--- OUTSIDE RECORDS SUMMARY | 2022-07-04 15:05 | XMS_ITS | Encounter Summary ---
:1945 Author Organization [facility] Address [address], [place] [address] Care Team Providers Name Role Phone Loretta Mcmahan MD Primary Care Provider Unavailable Reason for Visit Reason Onset Date Comments QUESTIONS, GENERAL 11/24/2014 Encounter Details Date Type Department Care Team Description 11/24/2014 Telephone [facility] [address], QUESTIONS, GENERAL NeuroSurgery [address] [place] [address] [place] [address] [phone] (Wo rk) Social History Tobacco Use Types [...] bridging recommendations.Selene Johnson RN 11/24/2014, 2:37 PM NICAL DOCUMENT WRITER Cristine Haddad PA-C - 11/24/2014 11:[address] Salvador's notes, he is okay to have the injection done this month. However, patient is still on coumadin and bridging recommendations/timing should be advised per Dr. Salvador. Cristine Mir PA-C NICAL DOCUMENT WRITER Beth Read - 11/24/2014 11:37 AM CST Patient's is calling stating that pt is having a medial block and has questions regarding discontinuing blood thinners and the use of lovenox injections. NICAL DOCUMENT WRITER documented in this encounter Plan of Treatment Not on filedocumented as of this encounter Visit Diagnoses Not on filedocumented in this encounter Care Teams Belting Inspector Relationship Specialty Start Date End Date Loretta Mcmahan MD PCP - General Family Practice 10/21/1402/10 documented as of this encounter
--- OUTSIDE RECORDS SUMMARY | 2022-07-04 15:05 | XMS_ITS | Encounter Summary ---
:1945 Author Organization [facility] Address [address] [address] Care Team Providers Name Role Phone Loretta Mcmahan MD Primary Care Provider Unavailable Reason for Visit Reason Onset Date Comments Careplan: Anticoagulation 11/24/2014 Medication Questions 11/24/2014 Encounter Details Date Type Department Care Team Description 11/24/2014 Telephone [facility] Salvador replan: [facility] at [facility] U[facility] MD Anticoagulation; Hospital [address] [place] [address] Medication Questions [address] [place] [address] [phone] Social History Tobacco Use Types Packs/Day Years [...] to restarting therapeutic lovenox Genny Loya MD ARCH QUALITY ASSURANCE SPECIALIST Britany Knox, RN - 11/24/2014 4:09 PM CST Pt has history of brain bleed and is currently on anticoagulation managed by Dr Mcmahan. Has a medial branch block scheduled with Dr Neff on 11/30/14 Needs coumadin bridging arranged but due to history of brain bleed, Dr Mcmahan is not fully comfortable dosing the bridge and would like some input from [facility]. Per spouse, procedure can be postponed if more time is needed to coordinate bridging. Request Dr Loya to contact Dr Mcmahan to give bridging recommendations for Dr Mcmahan's office to manage. Dr Mcmahan clinic [phone] Thank you. Britany Knox RN 11/24/2014, 4:13 PM ARCH QUALITY ASSURANCE SPECIALIST Trudi Mendez - 11/24/2014 3:13 PM CST Jeff is having a medial branch block and needs to be off coumadin and would like dr salvador to dose lovonox bridge ARCH QUALITY ASSURANCE SPECIALIST documented in this encounter Plan of Treatment Not on filedocumented as of this encounter Visit Diagnoses Not on filedocumented in this encounter Care Teams Energy Manager Relationship Specialty Start Date End Date Loretta Mcmahan MD PCP - General Family Practice 10/21/1402/10 documented as of this encounter
--- OUTSIDE RECORDS SUMMARY | 2022-07-04 15:05 | XMS_ITS | Encounter Summary ---
:1945 Author Organization [facility] [address] [address] Care Team Providers Name Role Phone Loretta Mcmahan MD Primary Care Provider Unavailable Encounter Details Date Type Department Care Team Description 10/22/2014 Office Visit [facility] May Randle MD [address] [place] [address] Paraplegia (Primary Dx); Physical Therapy Trudi Raymundo, PT [address] [place] [address] Osteoporosis; [address] Back pain; [place] [address] Gait abnormality [phone] Social History Tobacco Use Types Packs/Day Years [...] care. May Randle MD 10/22/2014, 10:36 PM AGE SOLUTIONS ARCHITECT Trudi Raymundo, PT - 10/22/2014 4:14 PM CST OUTPATIENT PHYSICAL THERAPY: SEATING/MOBILITY RE-EVALUATION Jeff Cullen [id number] 1945 Payor: MEDICARE Plan: MEDICARE [id number] Product Type: Medicare Referring Provider: May Randle provider: [facility] ([place]) Diagnosis: Paraplegia (344.1), Osteoporosis [...] rehabilitation at [facility]. At that point he was still ambulatory [...] uses out of the home but in [facility] essentially was in the breezy all Day other than some time spent in a recliner or in bed in [facility] . In 2010 he was hospitalized for [...] Cardio-Respiratory Status: intact CURRENT SEATING/MOBILITY: (Type - School Library Media Specialist-Model) Chair: Hoveround, age: 2006 w/c Cushion: Van [...] lift. 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 PATIENTS GOALS: Seeking power wheelchair [...] his osteoporosis (fracture prevention). He is a methods time analyst wheelchair user and is not ambulatory. He [...] need a new face to face.(NOT MET) SENIOR COST ESTIMATOR GOALS (to be met within 3 months) [...] with your signature, to our clinic at [phone]. Your signature is required to continue treatment of the above patient per Medicare regulations. I certify the need for the above services furnished under this treatment plan while under my care. _ May Randle MD 10/22/14 AGE SOLUTIONS ARCHITECT documented in this encounter Plan of Treatment Not on filedocumented as of this encounter Visit Diagnoses Diagnosis Paraplegia (HRC) - Primary Paraplegia Osteoporosis (HRC) Osteoporosis, unspecified Back pain Backache, unspecified Gait abnormality Abnormality of gait documented in this encounter Care Teams Manufacturing Supervisor Relationship Specialty Start Date End Date Loretta Mcmahan MD PCP - General Family Practice 10/21/1402/10 documented as of this encounter
--- OUTSIDE RECORDS SUMMARY | 2022-07-04 15:05 | XMS_ITS | Encounter Summary ---
:1945 Author Organization [facility] Address [address], [place] [address] Care Team Providers Name Role Phone Loretta Mcmahan MD Primary Care Provider Unavailable Reason for Visit Reason Onset Date Comments QUESTIONS, GENERAL 09/16/2014 Encounter Details Date Type Department Care Team Description 09/16/2014 Telephone [facility] Salvador W, QUESTIONS, GENERAL Center at [facility] frannie [address] [facility] [address] [place] [address] [place], [place] [phone] (Wo rk) Social History Tobacco Use Types [...] Please call. Becky Hughes 09/16/2014, 12:44 PM STRATION REP documented in this encounter Plan of Treatment Not on filedocumented as of this encounter Visit Diagnoses Not on filedocumented in this encounter Care Teams Electricians Top Helper Relationship Specialty Start Date End Date Loretta Mcmahan MD PCP - General Family Practice 10/21/1402/10 documented as of this encounter
--- OUTSIDE RECORDS SUMMARY | 2022-07-04 15:05 | XMS_ITS | Encounter Summary ---
:1945 Author Organization [facility] Address [address] [address] Care Team Providers Name Role Phone Loretta Mcmahan MD Primary Care Provider Unavailable Reason for Visit Reason Onset Date Comments ERRONEOUS ENTRY 11/22/2014 Encounter Details Date Type Department Care Team Description 11/22/2014 Telephone [facility] Mónica Winters, ERRONEOUS ENTRY [address] Ben[address] [place], [place] [address] [facility] [phone] [place], [place] [address] (Wo rk) Social History [...] on filedocumented in this encounter Care Teams Tipple Greaser Relationship Specialty Start Date End Date Loretta Mcmahan MD PCP - General Family Practice 10/21/1402/10 documented as of this encounter
--- OUTSIDE RECORDS SUMMARY | 2022-07-04 15:05 | XMS_ITS | Encounter Summary ---
:1945 Author Organization [facility] Address [address], [place] [address] Care Team Providers Name Role Phone No Primary/Referring, Phy Primary Care Provider Unavailable Reason for Visit Procedure/Equipment (Routine) - Closed Specialty Diagnoses / Procedures Referred By Contact Refer red To Contact Procedures Garry Neff MD MR THORACIC SPINE [address] WITH/WITHOUT CONTRAST [place], [place] [address] Referral ID Status Reason Start Date Expiration Date Visits Requ ested Visits Authorized [id number] Closed 12/16/2013 03/17/2015 1 1 Encounter Details Date Type Department Care Team Description 09/07/2014 [facility] [place] [facility] Garry Neff MD Center MRI [address] [place] [address] [place] [address] [phone] Social History Tobacco Use Types Packs/Day Years [...] dose documented in this encounter Care Teams Food And Beverage Cashier Relationship Specialty Start Date End Date No Primary/Referring, Phy PCP - General 09/07/14 1 12/20/13 documented as of this encounter
--- OUTSIDE RECORDS SUMMARY | 2022-07-04 15:05 | XMS_ITS | Encounter Summary ---
:1945 Author Organization [facility] Address [address] [address] Care Team Providers Name Role Phone Loretta [...] on filedocumented in this encounter Care Teams Platen Builder Up Relationship Specialty Start Date End Date Loretta Mcmahan MD PCP - General Family Practice 10/21/1402/10 documented as of this encounter
--- OUTSIDE RECORDS SUMMARY | 2022-07-04 15:05 | XMS_ITS | Encounter Summary ---
:1945 Author Organization [facility] Address [address] [address] Care Team Providers Name Role Phone Julien [...] Expiration Date Visits Requ ested Visits Authorized [id number] Closed 1 1 Encounter Details Date Type Department Care Team Description 10/20/[address] [place] [address] Social History Tobacco Use Types Packs/Day Years [...] 10/20/2014 11:32 AM Re sults for this CONSULTING SALES EXECUTIVE procedure are i n the results section. documented in this encounter Results CT HEAD WITHOUT CONTRAST (10/20/2014 11:32 AM CONSULTING SALES EXECUTIVE) Anatomical Region Laterality Modality Head Computed Tomography Specimen (Source) Anatomical Collection Method Collection Time Re ceived Time Location / / Volume Laterality 10/20/2014 11:32 AM CONSULTING SALES EXECUTIVE Narrative 10/20/2014 11:52 AM CONSULTING SALES EXECUTIVE HEAD CT WITHOUT IV CONTRAST 10/20/2014 11:32 [...] on filedocumented in this encounter Care Teams Bar Turner Relationship Specialty Start Date End Date Julien Schafer MD PCP - General Internal Medicine 10/20/14 10/20/[address] [place] [address] documented as of this encounter
--- OUTSIDE RECORDS SUMMARY | 2022-07-04 15:05 | XMS_ITS | Encounter Summary ---
:1945 Author Organization [facility] Address [address] [place] [address] Care Team Providers Name Role Phone Loretta Mcmahan MD Primary Care Provider Unavailable Encounter Details Date Type Department Care Team Description 10/22/2014 Orders Only External to External, [place] [address] Social History Tobacco Use Types Packs/Day Years [...] LAB 10/22/2014 12:00 AM Results for this DIMMER BOARD OPERATOR procedure are i n the results section . documented in this encounter Results SCANNED LAB (10/22/2014 12:00 AM DIMMER BOARD OPERATOR) Specimen (Source) Anatomical Location Collection Method / Collectio n Time Received Time / Laterality Volume 10/22/2014 Narrative This result has an attachment that is no t available. Provider External LAB_1 documented in this encounter Visit Diagnoses Not on filedocumented in this encounter Care Teams Molder Vacuum Relationship Specialty Start Date End Date Loretta Mcmahan MD PCP - General Family Practice 10/21/1402/10 documented as of this encounter
--- OUTSIDE RECORDS SUMMARY | 2022-07-04 15:05 | XMS_ITS | Encounter Summary ---
:1945 Author Organization [facility] Address [address], [place] [address] Care Team Providers Name Role Phone Julien [...] Expiration Date Visits Requ ested Visits Authorized [id number] Closed 1 1 Encounter Details Date Type Department Care Team Description 10/20/2014 [facility] [address] [place] [address] Social History Tobacco Use Types Packs/Day Years [...] 2:21 PM Re sults for this VIEW BOX TOE BUFFER procedure are i n the results section. documented in this encounter Results XR PORTABLE CHEST 1 VIEW (10/20/2014 2:21 PM BOX TOE BUFFER) Anatomical Region Laterality Modality Chest, Lung Computed Radiography Specimen (Source) Anatomical Collection Method Collection Time Re ceived Time Location / / Volume Laterality 10/20/2014 2:21 PM BOX TOE BUFFER Narrative 10/20/2014 2:26 PM BOX TOE BUFFER XR PORT CHEST 1 VW 10/20/2014 2:21 [...] on filedocumented in this encounter Care Teams Metal Sprayer Protective Coating Relationship Specialty Start Date End Date Julien Schafer MD PCP - General Internal Medicine 10/20/14 10/20/[address] [place] [address] documented as of this encounter
--- OUTSIDE RECORDS SUMMARY | 2022-07-04 15:06 | XMS_ITS | Encounter Summary ---
:1945 Author Organization [facility] Address [address] [place] [address] Care Team Providers Name Role Phone No Primary/Referring, Phy Primary Care Provider Unavailable Encounter Details Date Type Department Care Team Description 08/17/2014 Therapy [facility] Physical Trudi Raymundo, PT Therapy [address] [place] [address] [place] [address] [phone] Social History Tobacco Use Types Packs/Day Years [...] on filedocumented in this encounter Care Teams Alodize Machine Operator Relationship Specialty Start Date End Date No Primary/ReferringOttoniel PCP - General 09/07/14 1 12/20/13 documented as of this encounter
--- OUTSIDE RECORDS SUMMARY | 2022-07-04 15:06 | XMS_ITS | Encounter Summary ---
:1945 Author Organization [facility] Address [address], [place] [address] Care Team Providers Name Role Phone Franklin Squires MD Primary Care Provider Encounter Details Date Type Department Care Team Description 08/20/2014 Outside Hospital External to [facility] H[facility]P-ADMIT H/P Social History Tobacco Use [...] on filedocumented in this encounter Care Teams International [employer]cast Music Librarian Relationship Specialty Start Date End Date Franklin Squires MD PCP - General Family Practice 03/08/[address] [place], [place] [address]LES Wong [phone] documented as of this encounter
--- OUTSIDE RECORDS SUMMARY | 2022-07-04 15:06 | XMS_ITS | Encounter Summary ---
:1945 Author Organization [facility] Address [address], [place] [address] Care Team Providers Name Role Phone Franklin Squires MD Primary Care Provider Encounter Details Date Type Department Care Team Description 08/22/2014 Outside Hospital External to [facility] HOSP-D/C SUMMARY Social History Tobacco [...] on filedocumented in this encounter Care Teams Grey Inspector Relationship Specialty Start Date End Date Franklin Squires MD PCP - General Family Practice 03/08/[address] [place], [place] [address]LES Wong [phone] documented as of this encounter
--- OUTSIDE RECORDS SUMMARY | 2022-07-04 15:06 | XMS_ITS | Encounter Summary ---
:1945 Author Organization [facility] Address [address], [place] [address] Care Team Providers Name Role Phone Franklin [...] filedocumented in this encounter Care Teams Chief Nursing Officer Relationship Specialty Start Date End Date Franklin Squires MD PCP - General Family Practice 03/08/[address] [place], [place] [address]LES Wong [address] documented as of this encounter
--- OUTSIDE RECORDS SUMMARY | 2022-07-04 15:06 | XMS_ITS | Encounter Summary ---
:1945 Author Organization [facility] Address [address], [place] [address] Care Team Providers Name Role Phone Unavailable Primary Care Provider Unavailable Encounter Details Date Type Department Care Team Description 08/09/2014 Procedure Visit [facility] Tevin Alves, Radiology [address] [place] [id number] [place] [address] [phone] (Wo rk) Social History Tobacco Use Types [...]
--- OUTSIDE RECORDS SUMMARY | 2022-07-04 15:06 | XMS_ITS | Encounter Summary ---
:1945 Author Organization [employer] Address [address], [place] [address] Care Team Providers Name Role Phone Unavailable Primary Care Provider Unavailable Reason for Visit Reason Onset Date Comments NUMBNESS 08/10/2014 Encounter Details Date Type Department Care Team Description 08/10/2014 Telephone Specialty Center 401 Yordy Shelley MD NUMBNESS NeuroSurgery 3931 [facility] [address] [place] [address] [phone] (Wo rk) Social History Tobacco Use Types [...] hospital as he is far from us, [facility], will call them to schedule. They [...]
--- OUTSIDE RECORDS SUMMARY | 2022-07-04 15:06 | XMS_ITS | Encounter Summary ---
:1945 Author Organization [facility] Address [address], [place] [address] Care Team Providers Name Role Phone Unavailable Primary Care Provider Unavailable Reason for Visit Reason Onset Date Comments Medication Questions 08/04/2014 Encounter Details Date Type Department Care Team Description 08/04/2014 Telephone Specialty Center 401 Zelalem Cohen edication Questions Interventional Pain L, DO Management [address] [place] [address] [phone] Social History Tobacco Use Types Packs/Day Years [...]
--- OUTSIDE RECORDS SUMMARY | 2022-07-04 15:06 | XMS_ITS | Encounter Summary ---
:1945 Author Organization [facility] Address [address] [place] [address] Care Team Providers Name Role Phone No [...] on filedocumented in this encounter Care Teams Wire Coating Machine Operator Relationship Specialty Start Date End Date No Primary/Referring, Phy PCP - General 09/07/14 1 12/20/13 documented as of this encounter
--- OUTSIDE RECORDS SUMMARY | 2022-07-04 15:06 | XMS_ITS | Encounter Summary ---
:1945 Author Organization [facility] Address [address] [place] [address] Care Team Providers Name Role Phone Unavailable Primary Care Provider Unavailable Reason for Visit Procedure/Equipment (Routine) - Incomplete Specialty Diagnoses / Procedures Referred By Contact Refer red To Contact Procedures Shin Salvador MD CT HEAD (ADULT) WITH OUT [address] [place] [address] Referral ID Status Reason Start Date Expiration Date Visits V isits Requested Authorized [id number] Incomplete 08/23/2014 1 1 Encounter Details Date Type Department Care Team Description 08/26/2014 [facility] Shin Salvador [facility] [place] [facility] [address] [place] [address] [place] [address] [phone] Social History Tobacco Use Types Packs/Day Years [...]
--- OUTSIDE RECORDS SUMMARY | 2022-07-04 15:06 | XMS_ITS | Encounter Summary ---
:1945 Author Organization [employer] Address [address], [place] [address] Care Team Providers Name Role Phone Unavailable Primary Care Provider Unavailable Encounter Details Date Type Department Care Team Description 08/09/2014 Notes/Orders Specialty Center Sylvia Washington SDH (subdural 401 NeuroSurgery R, RN hematoma) (Primary Dx) [address] [place] [address] [place], [place] [phone] Social History Tobacco Use Types Packs/Day Years [...]
--- OUTSIDE RECORDS SUMMARY | 2022-07-04 15:06 | XMS_ITS | Encounter Summary ---
:1945 Author Organization [employer] Address [address] [place] [address] Care Team Providers Name Role Phone Unavailable Primary Care Provider Unavailable Encounter Details Date Type Department Care Team Description 08/20/2014 Telephone Specialty Center 401 Molly Diaz PA-C NeuroSurgery 3931 [facility] [address] [place] [address] [place], [place] [phone] Social History Tobacco Use Types Packs/Day Years [...] was transferred to myself from physician at [place] ED. Pt known to myself from recent spontaneous SDH evacuation on 07/28/[address] Cooper Shelley. Pt has hx of LE paralysis and DVT. He had doppler while hospitalized at [facility] that showed BLE non occlusive DVTs. Pt was previously on coumadin forDVT hx (although subtherapeutic at time of SDH for prior lumbar injection) and has IVC filter placedin 1999. Pt was sent to ED in [place] today for RLE edema. Doppler today in [place] shows RLE occlusive DVT. Physician there spoke [...] coumadin. Instructed physician there to contact neurosurgery monitor worker, Dr. Solis, if any questions over the weekend. [place] provider had hoped to transfer pt to [facility] but apparently [facility] full. Recommend sooner follow [...] Molly Diaz PA-C, 08/20/2014, 2:36 PM Neurosurgery [phone] documented in this encounter Plan of Treatment Not on filedocumented as of this encounter Visit Diagnoses Not on filedocumented in this encounter
--- OUTSIDE RECORDS SUMMARY | 2022-07-04 15:06 | XMS_ITS | Encounter Summary ---
:1945 Author Organization [facility] Address [address] [place] [address] Care Team Providers Name Role Phone Unavailable Primary Care Provider Unavailable Encounter Details Date Type Department Care Team Description 08/10/2014 Orders Only External to Alfonso Neff MD [address] [place] [phone] (Wo rk) Social History Tobacco [...]
--- OUTSIDE RECORDS SUMMARY | 2022-07-04 15:06 | XMS_ITS | Encounter Summary ---
:1945 Author Organization [facility] Address [address], [place] [address] Care Team Providers Name Role Phone Unavailable Primary Care Provider Unavailable Reason for Visit Reason Onset Date Comments QUESTIONS, GENERAL 08/23/2014 Encounter Details Date Type Department Care Team Description 08/23/2014 Telephone Specialty Center 401 Yordy Shelley MD QUESTIONS, GENERAL NeuroSurgery [address] [facility] [address] [place] [address] [phone] (Wo rk) Social History Tobacco Use Types [...] Please try home or her cell at [phone]. documented in this encounter Plan of Treatment Not on filedocumented as of this encounter Visit Diagnoses Not on filedocumented in this encounter
--- OUTSIDE RECORDS SUMMARY | 2022-07-04 15:06 | XMS_ITS | Encounter Summary ---
:1945 Author Organization [facility] Address [address] [place] [address] Care Team Providers Name Role Phone Unavailable Primary Care Provider Unavailable Reason for Visit Reason Onset Date Comments SWELLING, LEG 08/20/2014 Encounter Details Date Type Department Care Team Description 08/20/2014 Telephone Careline Unknown, Physician SWELLING, LEG [address] [place], [place] [address] [place], [place] [address] (Wo rk) Social History Tobacco Use Types [...] had emergent surgery with Dr Shelley at [facility] for hematoma. Not on coumadin since then [...] redness, pain or tenderness PLAN: Er in [place] where they live to check sx for [...]
--- OUTSIDE RECORDS SUMMARY | 2022-07-04 15:06 | XMS_ITS | Encounter Summary ---
:1945 Author Organization [facility] Address [address], [place] [address] Care Team Providers Name Role Phone Unavailable Primary Care Provider Unavailable Reason for Visit Reason Onset Date Comments Medication Request 09/03/2014 Encounter Details Date Type Department Care Team Description 09/03/2014 Telephone Specialty Center 401 Garry Neff, Medication Request NeuroSurgery [address] [place] [address] [place] [address] [phone] (Wo rk) Social History Tobacco Use Types [...]
--- OUTSIDE RECORDS SUMMARY | 2022-07-04 15:06 | XMS_ITS | Encounter Summary ---
:1945 Author Organization [employer] Address [address], [place] [address] Care Team Providers Name Role Phone Unavailable Primary Care Provider Unavailable Reason for Visit Reason Comments Revisit f/u surgery--brain bleed Encounter Details Date Type Department Care Team Description 08/19/2014 Office Visit Specialty Center 401 Zelalem Cohen umbar spondylosis Interventional Pain L, DO (Primary Dx) Management [address] [place] [phone] Social History Tobacco Use Types Packs/Day Years [...] SCI. Had diagnostic facet blocks done at [facility], did great, pending RFA on 08/27. Off [...] SCI Plan of Care: 1. F/u with [facility] for RFA as scheduled 2. No new [...]
--- OUTSIDE RECORDS SUMMARY | 2022-07-04 15:06 | XMS_ITS | Encounter Summary ---
:1945 Author Organization [facility] Address [address] [address] Care Team Providers Name Role Phone Loretta Mcmahan MD Primary Care Provider Unavailable Reason for Referral Procedure/Equipment (Routine) - Incomplete Specialty Diagnoses / Procedures Referred By Contact Refer red To Contact Procedures Shin Salvador MD CT HEAD (ADULT) WITH OUT [address] [place] [address] Referral ID Status Reason Start Date Expiration Date Visits V isits Requested Authorized [id number] Incomplete 08/23/2014 1 1 Reason for Visit Reason Onset Date Comments Medication Questions 08/23/2014 Encounter Details Date Type Department Care Team Description 08/23/2014 Telephone [facility] Cancer Shin Salvador dication Questions Center at Namrata Ulloa MD [facility] [address] [facility] [address] [place] [phone] Social History Tobacco Use Types Packs/Day [...] in place x >10 years; admitted to [facility] Jul 2014 with SDH at time that INR =1.1; No evidence of lupus anticogulant Pt admitted to hospital at [facility] over weekend with new RLE DVT [...] clots on Saturday and was hospitalized at [facility] over the weekend, released on Saturday. The [...] imary documented in this encounter Care Teams Clinical Biostatistician Relationship Specialty Start Date End Date Loretta Mcmahan MD PCP - General Family Practice 10/21/1402/10 documented as of this encounter
--- OUTSIDE RECORDS SUMMARY | 2022-07-04 15:06 | XMS_ITS | Encounter Summary ---
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 3. Hospitalization 07/2014 for aevpt-kp-imvhrvs subdural hematoma, evacuated with a keegan hole 07/28/2014, with history of super therapeutic INR of 4.2 two weeks prior. The warfarin was stopped on that occasion. 4. Hospitalization at [facility] 08/20/2014 for progression of right lower extremity [...] of recurrent DVT. He was hospitalized at [facility], where a DVT documented by ultrasound. He [...] answered questions regarding fish oil and other qniw-wqu-okjyoyh medications that are mild blood thinners. Will maintain tight control his INR at 2 to 2.5. He has followup with both me and Dr. Shelley in perhaps 2 weeks ago. Will repeat a CT then. We will delay his rhizotomy for 3 months. Shin Salvador MD [facility]:clr Dictated: 08/30/2014 12:02:45 Transcribed: 08/30/2014 14:52:44 Job: [id number] Doc: [id number] cc: documented in this encounter Plan of [...] Signature Protime 24.2 (H) 12.0 - 14.5 [facility] INR 2.2 (H) 0.9 - 1.1 [facility] Specimen Anatomical Collection Method Collection Time Receive d Time (Source) Location / / Volume Laterality 08/30/2014 11:00 08/30/2014 AM CDT 11:13 AM CDT Narrative [facility] - 08/30/2014 11:29 AM C DT Performed at [facility] , [address] [place] [address] Shin Salvador MD LAB_1 Performing Organization Address City/[facility]/ZIP [facility] Phon e Number [address] [address] URIC ACID [[id number]] (08/30/2014 11:00 AM CDT) P athologist Signature Uric Acid 6.0 3.5 - 8.5 [facility] mg[facility]dl [facility] Specimen Anatomical Collection Method Collection Time Receive d Time (Source) Location / / Volume Laterality 08/30/2014 11:00 08/30/2014 AM CDT 11:13 AM CDT [facility] - 08/30/2014 11:33 AM C DT Performed at [facility] , [address] [place] [address] Shin Salvador MD LAB_1 Performing Organization Address [facility]/ZIP [facility] Phon e Number [address] [address] PHOSPHORUS [[id number]] (08/30/2014 11:00 AM CDT) P athologist Signature Phosphorus 3.6 2.5 - 4.5 [facility]dl [facility] Specimen Anatomical Collection Method Collection Time Receive d Time (Source) Location / / Volume Laterality 08/30/2014 11:00 08/30/2014 AM CDT 11:13 AM CDT [facility] - 08/30/2014 11:33 AM C DT Performed at [facility] , [address] [place] [address] Shin Salvador MD LAB_1 Performing Organization Address City/[facility]/ZIP [facility] Phon e Number [address] [address] MAGNESIUM [[id number]] (08/30/2014 11:00 AM CDT) P athologist Signature Magnesium 1.8 1.6 - 2.3 [facility]dl [facility] Specimen Anatomical Collection Method Collection Time Receive d Time (Source) Location / / Volume Laterality 08/30/2014 11:00 08/30/2014 AM CDT 11:13 AM CDT [facility] - 08/30/2014 11:33 AM C DT Performed at [facility] , [address] [place] [address] Shin Salvador MD LAB_1 Performing Organization Address [facility] Phon e Number [address] [address] LD TOTAL (LDH) [0122] (08/30/2014 11:00 AM CDT) P athologist Signature LD [phone] 799 [facility] Specimen Anatomical Collection Method Collection Time Receive d Time (Source) Location / / Volume Laterality 08/30/2014 11:00 08/30/2014 AM CDT 11:13 AM CDT [facility] - 08/30/2014 11:33 AM C DT Performed at [facility] , [address] [place] [address] Shin Salvador MD LAB_1 Performing Organization Address [facility] Phon e Number [address] [address] (ABNORMAL) HEMOGRAM/PLTS/DIFF(aka CBC) [[id number]] (08/30/2014 11:00 AM CDT) Analysis Performed At Patho logist Time Signature WBC 5.1 4.0 - 11.0 [facility] RBC 3.57 (L) 4.5 - 5.9 [facility] Hemoglobin 10.9 (L) 13.5 - [facility] 17.5 g/dl HOSPITAL HCT 33.5 (L) 41.0 - [facility] 53.0 % HOSPITAL MCV 93.8 80 - 100 [facility] MCH 30.5 26 - 34 pg [facility] MCHC 32.5 32 - 36 [facility] g/ HOSPITAL RDW 14.2 11.5 - [facility] 14.5 % HOSPITAL Platelets 237 150 - 450 [facility] MPV 9.3 (L) 9.4 - 12.4 [facility] PMN/Band 42 % [facility] Lymph 42 % [facility] Nance 7 % [facility] Eos 2 % [facility] HOSPITAL Baso 0 % [facility] HOSPITAL Neutrophil 2.1 1.8 - 7.[address] [facility] [address] [facility] Lymph Absolute 2.1 1.0 - 4.8 [facility] Nance Absolute 0.4 0.1 - 0.7 [facility] Eos Absolute 0.1 0.0 - 0.5 [facility] Baso Absolute 0.0 0.0 - 0.2 [facility] [place] 7 % [facility] [place] Absolute 0.4 (H) 0 [facility] Specimen Anatomical Collection Method Collection Time Receive d Time (Source) Location / / Volume Laterality 08/30/2014 11:00 08/30/2014 AM CDT 11:13 AM CDT [facility] - 08/30/2014 12:03 PM C DT Performed at [facility] , [address] [place] [address] Shin Salvador MD LAB_1 Performing Organization Address City/State/ZIP Code Phon e Number [address] [address] LIVER PANEL (Alk Phos, Bili Total and Direct, ALT, AST, Total Protein, Albumin, A/G Ratio) (08/30/2014 11:00 AM CDT) athologist Signature Alkaline 103 38 - 126 [facility] Phosphatase U/L [facility] Bilirubin, Total 0.5 0.2 - 1.3 [facility] mg/dl [facility] Bilirubin, 0.0 0.0 - 0.3 [facility] Direct mg/dl [facility] ALT (SGPT) 52 0 - 69 U/L [facility] AST (SGOT) 26 0 - 66 U/L [facility] Protein, Total 6.6 6.3 - 8.2 [facility] g/dl [facility] Albumin 3.6 3.5 - 5.0 [facility] g[facility]dl [facility] A/G Ratio, calc. 1.2 >1.0 [facility] Specimen Anatomical Collection Method Collection Time Receive d Time (Source) Location / / Volume Laterality 08/30/2014 11:00 08/30/2014 AM CDT 11:13 AM CDT Narrative [facility] - 08/30/2014 11:33 AM C DT Performed at [facility] , [address] [place] [address] Shin Salvador MD LAB_1 Performing Organization Address [facility] Phon e Number [address] [address] (ABNORMAL) BASIC METABOLIC PANEL aka CHEM8 (Na, [...] Est., If >60 >60 [facility] Black ml/min/1.7 [facility] 3m2 Specimen Anatomical Collection Method Collection Time Receive d Time (Source) Location / / Volume Laterality 08/30/2014 11:00 08/30/2014 AM CDT 11:13 AM CDT Narrative [facility] - 08/30/2014 11:33 AM C DT Performed at [facility] , [address] [place] [address] Shin Salvador MD LAB_1 Performing Organization Address City/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
--- OUTSIDE RECORDS SUMMARY | 2022-07-04 15:06 | XMS_ITS | Encounter Summary ---
:1945 Author Organization [facility] Address [address], [place] [address] Care Team Providers Name Role Phone Loretta Mcmahan MD Primary Care Provider Unavailable Reason for Visit Reason Onset Date Comments Other 08/17/2014 Encounter Details Date Type Department Care Team Description 08/17/2014 Telephone [facility] Trudi Raymundo, PT Other Physical Therapy [address] [place] [address] [place] [address] [phone] Social History Tobacco Use Types Packs/Day Years [...] on filedocumented in this encounter Care Teams Business Administration Instructor Relationship Specialty Start Date End Date Loretta Mcmahan MD PCP - General Family Practice 10/21/1402/10 documented as of this encounter
--- OUTSIDE RECORDS SUMMARY | 2022-07-04 15:06 | XMS_ITS | Encounter Summary ---
:1945 Author Organization [employer] Address [address] [place] [address] Care Team Providers Name Role Phone Unavailable Primary Care Provider Unavailable Reason for Visit Reason Onset Date Comments QUESTIONS, GENERAL 08/04/2014 Encounter Details Date Type Department Care Team Description 08/04/2014 Telephone Specialty Center 401 Yordy Shelley MD QUESTIONS, GENERAL NeuroSurgery 39[address] [facility] [address] [place] [address] [phone] (Wo rk) Social History Tobacco Use Types [...] 08/11/14 next week. Since they live in [place], [place], they would like to cancel the [...]
--- OUTSIDE RECORDS SUMMARY | 2022-07-04 15:07 | XMS_ITS | Encounter Summary ---
:1945 Author Organization [facility] Address [address], [place] [address] Care Team Providers Name Role Phone Unavailable Primary Care Provider Unavailable Reason for Visit Auth/Cert - Closed Specialty Diagnoses / Procedures Referred By Contact Refer red To Contact Diagnoses Subdural hemorrhage following injury, without mention of open intracranial wound, unspecified state of consciousness . Referral ID Status Reason Start Date Expiration Date Visits Requ ested Visits Authorized [id number] Closed 1 1 Encounter Details Date Type Department Care Team Description 07/28/2014 Anesthesia Event [facility] Operating Room Latrice Mcclain, [address] [place] [address] [address] [facility] [phone] [place], [place] [phone] (Wo rk) Anesthesia Record [...] Hughes, Jairo Hughes, MAMADOU, Time: 1924; Placed HOME PERFORMANCE CONSULTANT, LOG LOADER LOG LOADER By: LOG LOADER; Induction Type: Pre-O2, IV; Masking: Easy; ETT [...] 1929; BRIANNA CEDILLO Pre-existing: Yes; Inserted by?: LOG LOADER; Size (Gauge): 18 G; Orientation: Left; Location: [...] Mcclain MD - 07/28/2014 9:40 PM CDT [facility] Anesthesia Post-op Note Patient: [...] Mcclain MD - 07/28/2014 6:45 PM CDT [facility] Anesthesia Pre-op Evaluation Procedure: Procedure(s): CRANIOTOMY HPI: [...] 1999 S/p resection by Dr. Glasgow at [facility] in 05/2000. However resection was incomplete due [...] spasticity of lower extremities. ??? Osteoporosis multimedia editor wheelchair since 2006 ??? Leg fracture, left [...] Turp incl contrl postop bleed cmpl ??? 20291 total knee arthroplasty right ??? Ivc filter [...] lactated ringers infusion IV Continuous ??? lidocaine-epinephrine [id number]:[id number] % injection Intra-Op ??? LORazepam (aka ATIVAN) [...] Maintenance: Balanced PONV Prophylaxis: Other Equipment Needed: [place] Scope 3 and 2nd IV Post-operative Care: Routine Analgesia Anesthetic Plan, Risks, Benefits and alternatives discussed with: Patient and Fixer Supervisor Possibility of blood product administration discussed [...]
--- OUTSIDE RECORDS SUMMARY | 2022-07-04 15:07 | XMS_ITS | Encounter Summary ---
:1945 Author Organization [facility] Address [address], [place] [address] Care Team Providers Name Role Phone Unavailable Primary Care Provider Unavailable Reason for Referral Procedure/Equipment (Routine) - Incomplete Specialty Diagnoses / Procedures Referred By Contact Refer red To Contact Molly Diaz PA-C [address] [place] [address] 754 Referral ID Status Reason Start Date Expiration Date Visits V isits Requested Authorized [id number] Incomplete 08/02/2014 1 1 Procedure/Equipment (Routine) - Incomplete Specialty Diagnoses / Procedures Referred By Contact Refer red To Contact Procedures Molly Diaz PA-C CT HEAD (ADULT) [address] [place], [place] [address] Referral ID Status Reason Start Date Expiration Date Visits V isits Requested Authorized [id number] Incomplete 08/02/2014 1 1 Consult/Transfer Care (Routine) - Closed Specialty Diagnoses / Procedures Referred By Contact Refer red To Contact Neurosurgery Molly Diaz PA-C [address] [place] [address] Referral ID Status Reason Start Date Expiration Date Visits Requ ested Visits Authorized [id number] Closed 08/02/2014 11/01/2015 1 1 Scheduling Instructions Please call [phone], option 3 for a ny rescheduling needs. Consult/Transfer Care (Routine) - Incomplete Specialty Diagnoses / Procedures Referred By Contact Refer red To Contact Molly Diaz PA-C [address] [place], [place] [address] Referral ID Status Reason Start Date Expiration Date Visits V isits Requested Authorized [id number] Incomplete 08/02/2014 09/02/2014 1 1 Scheduling Instructions If scheduling assistance is needed, plea se inquire with the Hospital staff upon discharge. Procedure/Equipment (Routine) - Incomplete Specialty Diagnoses / Procedures Referred By Contact Refer red To Contact Procedures Molly Diaz PA-C CT HEAD WITHOUT CONTRAST [address] [place], [place] [address] Referral ID Status Reason Start Date Expiration Date Visits V isits Requested Authorized [id number] Incomplete 07/30/2014 1 1 Procedure/Equipment (Routine) - Incomplete Specialty Diagnoses / Procedures Referred By Contact Refer red To Contact Procedures Molly Diaz PA-C CT HEAD WITHOUT CONTRAST [address] [place], [place] [address] Referral ID Status Reason Start Date Expiration Date Visits V isits Requested Authorized [id number] Incomplete 07/30/2014 1 1 Procedure/Equipment (Routine) - Incomplete Specialty Diagnoses / Procedures Referred By Contact Refer red To Contact Procedures Molly Diaz PA-C US VENOUS DUPLEX LOWER [address] [facility] EXTREMITY BILATERAL [place], [place] [address] Referral ID Status Reason Start Date Expiration Date Visits V isits Requested Authorized [id number] Incomplete 07/30/2014 1 1 Procedure/Equipment (Routine) - Incomplete Specialty Diagnoses / Procedures Referred By Contact Refer red To Contact Procedures Cooper Shelley MD CT ANGIOGRAPHY HEAD [address] [place] [address] Referral ID Status Reason Start Date Expiration Date Visits V isits Requested Authorized [id number] Incomplete 07/29/2014 1 1 Procedure/Equipment (Routine) - Incomplete Specialty Diagnoses / Procedures Referred By Contact Refer red To Contact Procedures Molly Diaz PA-C CT HEAD WITHOUT CONTRAST [address] [place], [place] [address] Referral ID Status Reason Start Date Expiration Date Visits V isits Requested Authorized [id number] Incomplete 07/28/2014 1 1 Reason for Visit Auth/Cert - Closed Specialty Diagnoses / Procedures Referred By Contact Refer red To Contact Diagnoses Subdural hemorrhage following injury, without mention of open intracranial wound, unspecified state of consciousness . Referral ID Status Reason Start Date Expiration Date Visits Requ ested Visits Authorized [id number] Closed 1 1 Encounter Details Date Type Department Care Team Description 07/28/2014 - Hospital RH S10 Cooper Shelley, SDH (subdural hematoma) (Elena díaz Dx); 08/02/2014 Encounter [address] Александр Duarte MD DVT (deep venous thrombosis), unspecifie d laterality; [place], [place] [address] [place] HTN (hypert ension); [address] Neurogenic bladder; [phone] [place] ASHLEY ULLOA w/o com plication type II; [place] [address] Hyponatremia; [phone] Dyslipidemia; (Work) Neuropathic pain; [phone] Orthostatic hyp otension (Fax) Social History Tobacco [...] home, and please let our office know. [facility], 4th floor [address] [place] [address] Cooper Shelley and Molly Diaz PA-C is scheduled for 09/14 at 2:40pm. You will need a head CT prior. Please stop at radiology on the 1st floor 30 minutes prior to appointment. [facility], 4th floor [address] [place] [address] Scheduling Instructions: Please call [phone], option 3 for any rescheduling needs. Order [...] clinic if you have any incisional drainage. [phone]. If you would like to have your [...] in strength to your extremeties. Neurosurgery clinic [phone]. Diet Order Comments: Resume pre operative diet. [...] Melva Raymundo R.N. Nurse Clinician Neurosurgery Pager [phone] Associated attestation - Molly Diaz PA-C - 08/10/2014 4:09 PM CDT Agree with above note I have reviewed the patient's images and performed a pertinent exam. Molly Diaz PA-C, 08/10/2014, 4:08 PM Neurosurgery [phone] documented in this encounter Discharge Instructions Discharge InstructionsAidee Forbes RN - 08/02/2014 3:47 PM CDT Information about future appointments scheduled by [facility] Management or Nursing (These appointments may [...] wound and fever greater than 101.5 degrees [facility] NONE Contact Information [address] [address] For questions about your discharge instructions call the nursing unit : [facility], Emergency & Urgently Needed Care: For emergencies call 911 and/or get medical help right away. If you are a [facility] member and have medical needs after clinic hours you may call the CareLineat [phone] or . Smoking and second-hand smoke exposure: Smoking damages blood vessels, reduces the oxygen in your blood and makes your heart beat too fast. If you smoke you should quit. Everyone should avoid second- hand smoke. If you would like further assistance after your discharge, please contact [phone] or visit [email or web address] and [facility] [employer] can offer further [...] weight will also be followed by the Swim Coach when you go in for your treatment. [...] IM ONCE PRN ??? glucose-ascorbic acid (aka [id number]) chewable tablet 4 Tab 4 Tab Oral [...] IF >60 >60 ml/min/1.73m2 Narrative: Performed at [facility], [address] [place] [address] GLUCOSE, WHOLE BLOOD POC Result Value Range [...] Joaquín Brand MD, PGY1. Internal Medicine Resident. [phone] Associated attestation - Bayron Yanes MD - [...] mobility S/p ependymoma resection and treatment; coumadin detention use; hasIVC filter. Neurogenic bladder. Prominent cortical [...] Molly Diaz PA-C, 08/02/2014, 2:24 PM Neurosurgery [phone] Priti Hickey RN - 08/02/2014 9:44 AM CDT [facility]. PA Notified Note Name of MD notified: [...] SODIUM, URINE RANDOM 13 Narrative: Performed at [facility], [address] [place] [address] OSMOLALITY, URINE Result Value Range OSMOLALITY, URINE 164 Narrative: Performed at [facility], [address] [place] [address] GLUCOSE, WHOLE BLOOD POC Result Value Range GLUCOSE, WHOLE BLOOD 182 (*) 70 - 180 mg/dl SODIUM Result Value Range SODIUM 131 (*) 135 - 145 mmol/L Narrative: Performed at [facility], [address] [place] [address] GLUCOSE, WHOLE BLOOD POC Result Value Range [...] IF >60 >60 ml/min/1.73m2 Narrative: Performed at [facility], [address] [place] [address] GLUCOSE, WHOLE BLOOD POC Result Value Range [...] VALERIE. Jessie Nieves MD (hospital medicine) Pager: [phone] Jessie Nieves MBBS - 08/01/2014 11:30 AM [...] Somewhat worse c/w y'day. Appears Hypovolemia. - [place] of IV fluids - Repeat levels in [...] final recommendations from Hematology. Jessie Nieves MD ([facility]) Pager: [phone] Merly Gaytan MD - 08/01/2014 11:17 AM [...] mobility S/p ependymoma resection and treatment; coumadin detention use; has IVC filter. Neurogenic bladder. Prominent [...] Dr. Mateo Gaytan MD, PhD Neurosurgery prasanna [phone] Priti Hickey RN - 07/31/2014 12:14 PM CDT [facility]. MD Notified Note Name of MD notified: [...] mobility S/p ependymoma resection and treatment; coumadin detention use; has IVC filter. Neurogenic bladder. Prominent [...] Dr. Mateo Gaytan MD, PhD Neurosurgery nick [phone] Melva Raymundo RN - 07/30/2014 4:10 PM CDT Neurosurgery Progress Note 07/30/14 GEOR[place]IE drain removed. Purse string suture tied. Incision clean and dry. Melva Raymundo R.N. Nurse Clinician Neurosurgery Pager [phone] Associated attestation - Cooper Shelley MD - 07/30/2014 4:17 PM CDT Agree with above note I have reviewed the patient's images and performed a pertinent exam. Cooper Shelley MD Neurosurgery Jodi Aguila PA-C - 07/30/2014 2:02 PM CDT Jeff is s/p R SDH evacuation on 07/28 AXLE BEARING POLISHER called for neuro change accompanied by diaphoresis [...] Mills MD - 07/30/2014 1:32 PM CDT [facility] Rapid Response Team Note Time, Date & Location Rm: [id number] Transfer/Admission Information 69y right handed M with [...] mobility S/p ependymoma resection and treatment; coumadin detention use; hasIVC filter. Neurogenic bladder. Prominent cortical [...] Molly Diaz PA-C, 07/30/2014, 10:29 AM Neurosurgery [phone] Brittny Barrett, AIR CONDITIONING SPECIALIST, INFORMATION TECHNOLOGY ASSISTANT - 07/30/2014 9:58 AM CDT Endocrine SCIP [...] 24 hours. Brittny Barrett CNP Endocrinology Pager: [phone] Jodi Ordonez RN - 07/29/2014 9:29 PM CDT [facility] Nursing Transfer Note (To/From ICU / Progressive [...] Salazar MD - 07/29/2014 1:10 PM CDT [facility] SICU Critical Care Progress Note Date of [...] murmurs rubs or gallops :: Pulses: 100 Research Instrumentation Technician: NSR GI: Exam: :: Soft, non-tender, non-distended [...] Imaging studies, Lab results Disposition: Transfer to [facility] 10 Plan for the day ?? Add scheduled BB with hold parameters ?? D/C nicardipine ?? ADAT ?? Transfer to [place] [address] per Neurosurgery recommendations CORINA ZavalaS3 I have [...] Scheduled Lorazepam :: PRN APAP :: PRN Columbia :: PRN Dilaudid Sedation Holiday: :: not [...] no Rubs :: Pulses: II/IV bilaterally throughout Research Instrumentation Technician: :: NSR with intermittent ST GI: Exam: [...] hold parameters DC nicardipine ADAT Transfer to [place] [address] per NS Douglas Miranda ShahramshantanuLYDIA SICU Staff [...] Raymundo RN - 07/29/2014 12:46 PM CDT [facility] NeuroSurgery Craniotomy Progress Note 07/29/2014 Vitals Temp [...] IM ONCE PRN ??? glucose-ascorbic acid (aka [id number]) chewable tablet 4 Tab 4 Tab Oral [...] mobility S/p ependymoma resection and treatment; coumadin detention use; hasIVC filter. Neurogenic bladder Plan Patient [...] Melva Raymundo R.N. Nurse Clinician Neurosurgery Pager [phone] --- End of Report --- Associated attestation - Cooper Shelley MD - 08/07/2014 11:27 AM CDT Agree with above note I have reviewed the patient's images and performed a pertinent exam. Cooper Shelley MD Neurosurgery Malika Maradiaga, VALERIE - 07/28/2014 6:59 PM CDT [facility] Plan of Care Note Assessment: Pain Plan: [...] Shelley MD - 07/28/2014 8:48 PM CDT [facility] Brief Operative Progress Note Surgery Date: 07/28/2014 [...] SURGERY: 07/28/2014 OPERATING SURGEON: Cooper Shelley MD DRAWING INSTRUCTOR SURGEON: None. PREOPERATIVE DIAGNOSES: 1. Right subdural [...] We then freed the dura using a [place] 3 and then used a craniotome to [...] Dictated: 07/29/2014 13:17:42 Transcribed: 07/29/2014 13:40:36 Job: [id number] Doc: [id number] cc: Quan Corbett PA-C, Referring Provider documented in this encounter Consult Notes Jessie Nieves MBBS - 07/31/2014 5:18 PM CDTAssociated Order(s): MEDICINE INPT CONSULT [facility] Medicine Consultation Note () Date of [...] 1999 S/p resection by Dr. Glasgow at [facility] in 05/2000. However resection was incomplete due [...] spasticity of lower extremities. ??? Osteoporosis daytime babysitter wheelchair since 2006 ??? Leg fracture, left nontraumatic ??? Hypercholesteremia ??? Chronic constipation ??? Depression Past Surgical History Procedure Laterality Date ??? Appendectomy ??? Vasectomy* ??? Turp incl contrl postop bleed cmpl ??? 29872 total knee arthroplasty right ??? Ivc filter placement 1999 Family History Problem Relation Age of Onset ??? Cancer, Colon Mother ??? Cancer, Other Brother brother with throat cancer ??? Cancer, Breast Sister ??? Osteoporosis Mother no history of fractures Social History Occupational History ??? [employer] ??? [employer] ??? retired/disability Social History Main Topics ??? [...] recommendations from Hematology. Jessie Nieves MD Pager: [phone] Time spent was 60 minutes with >50% [...] subdural hematoma, and he was transferred to [facility] for neurosurgery care. He is now s/p [...] 1999 S/p resection by Dr. Glasgow at [facility] in 05/2000. However resection was incomplete due [...] spasticity of lower extremities. ??? Osteoporosis daytime babysitter wheelchair since 2006 ??? Leg fracture, left nontraumatic ??? Hypercholesteremia ??? Chronic constipation ??? Depression Past Surgical History Procedure Laterality Date ??? Appendectomy ??? Vasectomy* ??? Turp incl contrl postop bleed cmpl ??? 37346 total knee arthroplasty right ??? Ivc filter placement 1999 Family History Problem Relation Age of Onset ??? Cancer, Colon Mother ??? Cancer, Other Brother brother with throat cancer ??? Cancer, Breast Sister ??? Osteoporosis Mother no history of fractures Social History Occupational History ??? [employer] ??? [employer] ??? retired/disability Social History Main Topics ??? [...] help tip us in either direction regarding detention anti-coagulant use. 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 Glasgow at [facility] in 05/2000. However resection was incomplete due [...] spasticity of lower extremities. ??? Osteoporosis daytime babysitter wheelchair since 2006 ??? Leg fracture, left nontraumatic ??? Hypercholesteremia ??? Chronic constipation ??? Depression Past Surgical History Procedure Laterality Date ??? Appendectomy ??? Vasectomy* ??? Turp incl contrl postop bleed cmpl ??? 64953 total knee arthroplasty right ??? Ivc filter [...] dryness or diaphoresis Gait: deferred Affect: appropriate Maker Up Folding Strenth: good b/l Lab/test results discussed with [...] to see Jeff Muñoz CNP Endocrinology Pager [phone] Oscar Clinton MD - 07/28/2014 9:09 PM CDT [facility] SICU Critical Care Acceptance Note Date: 07/28/2014 [...] 80 mg qD Gabapentin 400 mg TID Columbia PRN Ativan 1 mg TID Niacin 500 [...] History ??? [employer] ??? [employer] [employer] ??? retired/disability Social History Main Topics ??? Smoking status: Never Smoker ??? Smokeless tobacco: Never Used ??? Alcohol Use: No ??? Drug Use: No ??? Sexual Activity: Partners: Female Other Topics Concern ??? Not on file Social History Narrative Wheelchair bound. Able to transfer from bed to wheelchair with assist of 1 at baseline. Lives with his in [place]. Vitals Filed Vitals: 07/28/14 1611 07/28/14 1842 [...] (*) 0.9 - 1.1 Narrative: Performed at [facility], [address] [place] [address] APTT (ACTIVATED PARTIAL THROMBOPLASTIN TIME Result Value Range PTT 51.2 (*) 24.0 - 37.0 sec Narrative: Performed at [facility], [address] [place] [address] ABO RH & ANTIBODY SCREEN (TYPE & SCREEN) Result Value Range CROSSMATCH EXPIRES 07/31/2014 ABO/RH(D) A NEGATIVE ANTIBODY SCREEN NEGATIVE Narrative: Performed at [facility], [address] [place] [address] head done at OSH - [...] in AM Pain :: dilaudid PRN :: Columbia PRN :: APAP prn Nausea :: zofran [...] SICU Oscar Clinton M.D. PGY-3, Emergency Department [phone] (SICU resident phone) Associated attestation - Shantanu [...] Diaz PA-C - 07/28/2014 5:46 PM CDT [facility] History and Physical () Admit Date/Time: 07/28/2014 [...] 2000 S/p resection by Dr. Glasgow at [facility] in 05/2000. However resection was incomplete due [...] spasticity of lower extremities. ??? Osteoporosis daytime babysitter wheelchair since 2006 ??? Leg fracture, left nontraumatic ??? Hypercholesteremia ??? Chronic constipation ??? Depression Past Surgical History Procedure Laterality Date ??? Appendectomy ??? Vasectomy* ??? Turp incl contrl postop bleed cmpl ??? 53954 total knee arthroplasty right ??? Ivc filter placement 1999 History Social History ??? Marital Status: Spouse Name: N/A Number of Children: 2 ??? Years of Education: N/A Occupational History ??? [employer] ??? [employer] ??? retired/disability Social History Main Topics ??? Smoking status: Never Smoker ??? Smokeless tobacco: Never Used ??? Alcohol Use: No ??? Drug Use: No ??? Sexual Activity: Partners: Female Other Topics Concern ??? Not on file Social History Narrative Wheelchair bound. Able to transfer from bed to wheelchair with assist of 1 at baseline. Lives with his in [place]. Family History Problem Relation Age of Onset [...] Molly Diaz PA-C, 07/28/2014, 5:50 PM Neurosurgery [phone] Report Completed by: Molly Diaz PA-C --- [...] Results CT HEAD (ADULT) (09/17/2014 1:23 PM ELECTRICIAN APPRENTICE) Anatomical Region Laterality Modality Head Computed Tomography Specimen (Source) Anatomical Collection Method Collection Time Re ceived Time Location / / Volume Laterality 09/17/2014 1:23 PM ELECTRICIAN APPRENTICE Narrative 09/17/2014 6:02 PM ELECTRICIAN APPRENTICE HEAD CT WITHOUT IV CONTRAST 09/17/2014 1:23 PM INDICATION: Subdural hematoma. TECHNIQUE: Head CT without IV contrast. COMPARISON: Head CT 08/26/2014 FINDINGS: Status post right parietal maintenance craftsman niotomy. No residual or recurrent subdural hematoma. [...] CT 08/26/2014 FINDINGS: Status post right parietal maintenance craftsman niotomy. No residual or recurrent subdural hematoma. [...] Cooper Shelley MD LAB_1 Performing Organization Address City/[facility] Code Phon e Number [address] [address] GLUCOSE, WHOLE BLOOD POC (08/02/2014 8:30 AM CDT) athologist Signature Glucose, Whole 143 70 - 180 REGIONS Blood mg/dl [facility] Comment: Point of Care Testing RN Notified Specimen Anatomical Collection Method Collection Time Receive d Time (Source) Location / / Volume Laterality 08/02/2014 8:30 AM 4 8:34 CDT AM CDT Cooper Shelley MD LAB_1 Performing Organization Address City/State/[facility] Phon e Number [address] [address] (ABNORMAL) BASIC METABOLIC PANEL (08/02/2014 6:09 AM [...] Est., If >60 >60 REGIONS Black ml/min/1.7 [facility] 3m2 Specimen Anatomical Collection Method Collection Time Receive d Time (Source) Location / / Volume Laterality 08/02/2014 6:09 AM 4 6:10 CDT AM CDT Narrative [facility] - 08/02/2014 6:53 AM CD T Performed at [facility] , [address] [place] [id number] Jessie ASKEW LAB_1 Performing Organization Address [facility] Phon e Number [address] [address] (ABNORMAL) GLUCOSE, WHOLE BLOOD POC (08/01/2014 9:52 [...] Address City/State/ZIP Code Phon e Number [address] [address] (ABNORMAL) SODIUM (08/01/2014 5:44 PM CDT) athologist Signature Sodium 131 (L) 135 - 145 REGIONS mmol/L [facility]OSPITAL Specimen Anatomical Collection Method Collection Time Receive d Time (Source) Location / / Volume Laterality 08/01/2014 5:44 PM 4 5:45 CDT PM CDT [facility] - 08/01/2014 5:57 PM CD T Performed at [facility] , [address] [place] [id number] Jessie ASKEW LAB_1 Performing Organization Address City/State/ZIP Code Phon e Number [address] [address] (ABNORMAL) GLUCOSE, WHOLE BLOOD POC (08/01/2014 5:20 PM CDT) athologist Signature Glucose, Whole 182 (H) 70 - 180 [facility] Blood mg/dl [facility] Comment: Point of Care Testing RN Notified Specimen Anatomical Collection Method Collection Time Receive d Time (Source) Location / / Volume Laterality 08/01/2014 5:20 PM 4 5:25 CDT PM CDT Cooper Shelley MD LAB_1 Performing Organization Address City/State/ZIP [facility] Phon e Number [address] [address] OSMOLALITY, URINE (08/01/2014 3:03 PM CDT) athologist Signature Osmolality, 164 [facility] Urine HOSPITAL Specimen Anatomical Collection Method Collection Time Receive d Time (Source) Location / / Volume Laterality Urine specimen 08/01/2014 3:03 PM 014 3:10 (specimen) CDT PM CDT [facility] - 08/01/2014 3:54 PM CD T Performed at [facility] , [address] [place] [id number] Cooper Shelley MD LAB_1 Performing Organization Address City/[facility]/ZIP [facility] Phon e Number [address] [address] SODIUM, URINE RANDOM (08/01/2014 3:03 PM CDT) athologist Signature Sodium, Urine 13 mmol/L [facility] Specimen Anatomical Collection Method Collection Time Receive d Time (Source) Location / / Volume Laterality Urine specimen 08/01/2014 3:03 PM 014 3:10 (specimen) CDT PM CDT [facility] - 08/01/2014 3:22 PM CD T Performed at [facility] , [address] [place] [id number] Cooper Shelley MD LAB_1 Performing Organization Address [facility] Phon e Number [address] [address] (ABNORMAL) GLUCOSE, WHOLE BLOOD POC (08/01/2014 12:41 PM CDT) athologist Signature Glucose, Whole 274 (H) 70 - 180 [facility] Blood mg/dl [facility]OS[facility]ITAL Comment: Point of Care Testing RN Notified Specimen Anatomical Collection Method Collection Time Receive d Time (Source) Location / / Volume Laterality 08/01/2014 12:41 08/01/2014 PM CDT 12:43 PM CDT Cooper Shelley MD LAB_1 Performing Organization Address City/[facility]/ZIP [facility] Phon e Number [address] [address] (ABNORMAL) GLUCOSE, WHOLE BLOOD POC (08/01/2014 11:53 AM CDT) athologist Signature Glucose, Whole 280 (H) 70 - 180 [facility] Blood mg/dl [facility] Comment: Point of Care Testing RN Notified Specimen Anatomical Collection Method Collection Time Receive d Time (Source) Location / / Volume Laterality 08/01/2014 11:53 08/01/2014 AM CDT 12:04 PM CDT Cooper Shelley MD LAB_1 Performing Organization Address City/[facility]/ZIP [facility] Phon e Number [address] [address] GLUCOSE, WHOLE BLOOD POC (08/01/2014 7:58 AM CDT) P athologist Signature Glucose, Whole 148 70 - 180 [facility] Blood mg/dl [facility]OS[facility]ITAL Comment: Point of Care Testing RN Notified Specimen Anatomical Collection Method Collection Time Receive d Time (Source) Location / / Volume Laterality 08/01/2014 7:58 AM 4 8:01 CDT AM CDT Cooper Shelley MD LAB_1 [address] [facility] Phon e Number [address] [address] (ABNORMAL) BASIC METABOLIC PANEL (08/01/2014 6:24 AM [...] Est., If >60 >60 [facility] Black ml/min/1.7 [facility] 3m2 Specimen Anatomical Collection Method Collection Time Receive d Time (Source) Location / / Volume Laterality 08/01/2014 6:24 AM 4 6:25 CDT AM CDT Narrative [facility] - 08/01/2014 7:12 AM CD T Performed at [facility] , [address] [place] [id number] Cooper Shelley MD LAB_1 Performing Organization Address City/[facility]/ZIP [facility] Phon e Number [address] [address] (ABNORMAL) GLUCOSE, WHOLE BLOOD POC (07/31/2014 11:01 [...] Address City/State/ZIP Code Phon e Number [address] [address] (ABNORMAL) GLUCOSE, WHOLE BLOOD POC (07/31/2014 8:58 [...] Address City/State/ZIP Code Phon e Number [address] [address] (ABNORMAL) GLUCOSE, WHOLE BLOOD POC (07/31/2014 5:45 [...] Address City/State/ZIP Code Phon e Number [address] [address] GLUCOSE, WHOLE BLOOD POC (07/31/2014 1:07 PM [...] Address City/State/ZIP Code Phon e Number [address] [address] [address] HEAD WITHOUT CONTRAST (07/31/2014 8:24 AM [...] [employer] 2006: 4; ??295 Test performed at [facility] [address] ??[id number] Director: JUANCARLOS FINCH MD Specimen Anatomical Collection Method Collection Time Receive d Time (Source) Location / / Volume Laterality 07/31/2014 8:01 AM 4 8:02 CDT AM CDT Shin Salvador MD LAB_1 Performing Organization Address City/State/ZIP Code Phon e Number [address] [address] (ABNORMAL) BASIC METABOLIC PANEL (07/31/2014 8:01 AM [...] Est., If >60 >60 [facility] Black ml/min/1.7 [facility] 3m2 Specimen Anatomical Collection Method Collection Time Receive d Time (Source) Location / / Volume Laterality 07/31/2014 8:01 AM 4 8:02 CDT AM CDT Narrative [facility] - 07/31/2014 8:32 AM CD T Performed at [facility] , [address] [place] [address] Shin Salvador MD LAB_1 Performing Organization Address City/[facility]/ZIP [facility] Phon e Number [address] [address] GLUCOSE, WHOLE BLOOD POC (07/31/2014 8:00 AM CDT) athologist Signature Glucose, Whole 160 70 - 180 [facility] Blood mg/dl [facility]OSPITAL Comment: Point of Care Testing RN Notified Specimen Anatomical Collection Method Collection Time Receive d Time (Source) Location / / Volume Laterality 07/31/2014 8:00 AM 4 8:03 CDT AM CDT Cooper Shelley MD LAB_[address] [facility] Code Phon e Number [address] [address] (ABNORMAL) GLUCOSE, WHOLE BLOOD POC (07/30/2014 9:44 PM CDT) athologist Signature Glucose, Whole 217 (H) 70 - 180 [facility] Blood mg/dl [facility]OSPITAL Comment: Point of Care Testing RN Notified Specimen Anatomical Collection Method Collection Time Receive d Time (Source) Location / / Volume Laterality 07/30/2014 9:44 PM 4 CDT 10:08 PM CDT Cooper Shelley MD LAB_1 Performing Organization Address City/[facility]/ZIP [facility] Phon e Number [address] [address] LUPUS ANTICOAGULANT WORKUP (07/30/2014 6:32 PM CDT) [facility] Method Time Signature Protime 14.0 12.0 - [facility] 14.5 sec HOSPITAL INR 1.1 0.9 - 1.1 [facility] PTT 26.0 24.0 - [facility] 37.0 [...] PM 4 6:38 CDT PM CDT Narrative [facility] - 08/02/2014 10:55 AM C DT Performed at [facility] , [address] [place] [id number] Cooper Shelley MD LAB_1 Performing Organization Address City/[facility]/ZIP [facility] Phon e Number [address] [address] GLUCOSE, WHOLE BLOOD POC (07/30/2014 5:50 PM CDT) athologist Signature Glucose, Whole 118 70 - 180 [facility] Blood mg/dl [facility]OSPITAL Comment: Point of Care Testing RN Notified Specimen Anatomical Collection Method Collection Time Receive d Time (Source) Location / / Volume Laterality 07/30/2014 5:50 PM 4 5:54 CDT PM CDT Cooper Shelley MD LAB_1 Performing Organization Address City/[facility] Phon e Number [address] [address] [place] VENOUS DUPLEX LOWER EXTREMITY BILATERAL (07/30/2014 [...] contrast. CONTRAST: None. SEDATION: None. COMPARISON: [facility] perform ed at 6:15 AM [...] contrast. CONTRAST: None. SEDATION: None. COMPARISON: [facility] perform ed at 6:15 AM [...] Cooper Shelley MD LAB_1 Performing Organization Address City/[facility]/ZIP Code Phon e Number [address] [address] GLUCOSE, WHOLE BLOOD POC (07/30/2014 8:02 AM CDT) athologist Signature Glucose, Whole 94 70 - 180 [facility] Blood mg/dl [facility] Comment: Point of Care Testing No Action Required Specimen Anatomical Collection Method Collection Time Receive d Time (Source) Location / / Volume Laterality 07/30/2014 8:02 AM 4 8:16 CDT AM CDT Cooper Shelley MD LAB_1 Performing Organization Address City/[facility]/ZIP Code Phon e Number [address] [address] (ABNORMAL) INR/PROTIME (07/30/2014 6:56 AM CDT) athologist Signature Protime 14.9 (H) 12.0 - 14.5 [facility] INR 1.2 (H) 0.9 - 1.1 [facility] Specimen Anatomical Collection Method Collection Time Receive d Time (Source) Location / / Volume Laterality 07/30/2014 6:56 AM 4 6:57 CDT AM CDT [facility] - 07/30/2014 7:57 AM CD T Performed at [facility] , [address] [place] [id number] Douglas Hays PA-C LAB_1 Performing Organization Address City/[facility]/ZIP Code Phon e Number [address] [address] (ABNORMAL) HEMOGRAM/PLTS (07/30/2014 6:56 AM CDT) P athologist Signature WBC 11.0 4.0 - 11.0 [facility] k/ul HOSPITAL RBC 3.87 (L) 4.5 - 5.9 [facility] M/ul HOSPITAL Hemoglobin 11.8 (L) 13.5 - 17.5 [facility] g/dl HOSPITAL HCT 35.6 (L) 41.0 - 53.0 [facility] % HOSPITAL MCV 92.0 80 - 100 fl [facility] MCH 30.5 26 - 34 pg [facility] MCHC 33.1 32 - 36 [facility] g/dl HOSPITAL RDW 13.7 11.5 - [address].5 [facility] Platelets 177 150 - 450 [facility] k/ul [facility] MPV 10.5 9.4 - 12.4 [facility] Specimen Anatomical Collection Method Collection Time Receive d Time (Source) Location / / Volume Laterality 07/30/2014 6:56 AM 4 6:57 CDT AM CDT Narrative [facility] - 07/30/2014 7:24 AM CD T Performed at [facility] , [address] [place] [id number] Douglas Hays PA-C LAB_1 Performing Organization Address City/State/ZIP Code Phon e Number [address] [address] (ABNORMAL) BASIC METABOLIC PANEL (07/30/2014 6:56 AM [...] AM 4 6:57 CDT AM CDT Narrative [facility] - 07/30/2014 7:40 AM CD T Performed at [facility] , [address] [place] [address] Douglas Hays PA-C LAB_1 Performing Organization Address City/State/ZIP Code Phon e Number [facility] [address] [place] [address] [address] [address] ANGIOGRAPHY HEAD (07/30/2014 6:27 AM CDT) [...] Address City/State/ZIP Code Phon e Number [address] [address] GLUCOSE, WHOLE BLOOD POC (07/29/2014 11:57 AM CDT) athologist Signature Glucose, Whole 130 70 - 180 [facility] Blood mg/dl [facility]OSPITAL Comment: Point of Care Testing RN Notified Specimen Anatomical Collection Method Collection Time Receive d Time (Source) Location / / Volume Laterality 07/29/2014 11:57 07/29/2014 AM CDT 12:13 PM CDT Cooper Shelley MD LAB_1 Performing Organization Address City/[facility]/ZIP [facility] Phon e Number [address] [address] GLUCOSE, WHOLE BLOOD POC (07/29/2014 8:19 AM CDT) P athologist Signature Glucose, Whole 143 70 - 180 [facility] Blood mg/dl [facility] Comment: Point of Care Testing RN Notified Specimen Anatomical Collection Method Collection Time Receive d Time (Source) Location / / Volume Laterality 07/29/2014 8:19 AM 4 8:39 CDT AM CDT Cooper Shelley MD LAB_1 Performing Organization Address City/[facility] Phon e Number [address] [address] [address] HEAD WITHOUT CONTRAST (07/29/2014 4:30 AM [...] Est., If >60 >60 [facility] Black ml/min/1.7 [facility] 3m2 Specimen Anatomical Collection Method Collection Time Receive d Time (Source) Location / / Volume Laterality 07/29/2014 4:10 AM 4 4:11 CDT AM CDT Narrative [facility] - 07/29/2014 4:26 AM CD T Performed at [facility] , [address] [place] [id number] Cooper Shelley MD LAB_1 Performing Organization Address City/[facility]/ZIP [facility] Phon e Number [address] [address] (ABNORMAL) HGB A1C (07/29/2014 3:19 AM CDT) athologist Signature Hgb A1c 6.4 (H) 4.3 - 6.1 % [facility] Comment: The usual A1C goal for people with diabe jeremy, age 18-75, is <8.0%. Physicians may recommend a higher or lo wer goal for specific individuals. Specimen Anatomical Collection Method Collection Time Receive d Time (Source) Location / / Volume Laterality 07/29/2014 3:19 AM 4 3:22 CDT AM CDT [facility] - 07/29/2014 12:53 PM C DT Performed at [facility], [address] [place] [address] ??[phone] Jamaica Wei PA-C LAB_1 Performing [address] [facility] Phon e Number [address] [address] ADD ON LAB ORDERS(SPECIMEN IN LAB) (07/29/2014 3:19 AM CDT) [facility] Method Time Signature Add On Test Additional [facility] Ordered by Specimen Anatomical Collection Method Collection Time Receive d Time (Source) Location / / Volume Laterality 07/29/2014 3:19 AM 4 3:22 CDT AM CDT [facility] - 07/29/2014 9:01 AM CD T Performed at [facility] , [address] [place] [address] Jamaica Wei PA-C LAB_1 Performing Organization Address [facility] Phon e Number [address] [address] (ABNORMAL) INR/PROTIME (07/29/2014 3:19 AM CDT) P athologist Signature Protime 15.2 (H) 12.0 - 14.5 [facility] INR 1.2 (H) 0.9 - 1.1 [facility] Specimen Anatomical Collection Method Collection Time Receive d Time (Source) Location / / Volume Laterality 07/29/2014 3:19 AM 4 3:22 CDT AM CDT [facility] - 07/29/2014 3:38 AM CD T Performed at [facility] , [address] [place] [id number] Cooper Shelley MD LAB_1 Performing Organization Address City/[facility] Phon e Number [address] [address] (ABNORMAL) Hemogram with Platelets (07/29/2014 3:19 AM CDT) athologist Signature WBC 7.7 4.0 - 11.0 [facility] RBC 4.36 (L) 4.5 - 5.9 [facility] Hemoglobin 13.3 (L) 13.5 - 17.5 [facility] g/[facility] HCT 39.3 (L) 41.0 - 53.0 [facility] MCV 90.1 80 - 100 [facility] MCH 30.5 26 - 34 pg [facility] MCHC 33.8 32 - 36 [facility] RDW 13.4 11.5 - 14.5 [facility] Platelets 173 150 - 450 [facility] MPV 11.6 9.4 - 12.4 [facility] Specimen Anatomical Collection Method Collection Time Receive d Time (Source) Location / / Volume Laterality 07/29/2014 3:19 AM 4 3:22 CDT AM CDT [facility] - 07/29/2014 3:30 AM CD T Performed at [facility] , [address] [place] [phone] Cooper Shelley MD LAB_1 Performing Organization Address [facility] Phon e Number [address] [address] MRSA ADMIT SCREEN (07/28/2014 10:30 PM CDT) Component Value Ref Test Analysis Performed At [facility] Range Method Time Signature Specimen Nose Swab [facility] Description HOSPITAL Special Unspecified [facility] Requests HOSPITAL PCR No MRSA DNA [facility] Detected [facility]OSPITAL Culture No Methicillin [facility] Resistant [facility]OS[facility]ITAL Staphylococcus aureus Report Status Final 07/29/2014 [facility] Specimen Anatomical Collection Method Collection Time Receive d Time (Source) Location / / Volume Laterality Nasal swab taken 07/28/2014 10:30 2 014 4:45 (situation) PM CDT AM CDT Narrative [facility] - 07/29/2014 6:40 AM CD T Performed at [facility] , [address] [place] [id number] Cooper Shelley MD LAB_1 Performing Organization Address City/[facility] Phon e Number [address] [address] GLUCOSE, WHOLE BLOOD POC (07/28/2014 10:21 PM CDT) athologist Signature Glucose, Whole 133 70 - 180 [facility] Blood mg/dl [facility]OSPITAL Comment: Point of Care Testing RN Notified Specimen Anatomical Collection Method Collection Time Receive d Time (Source) Location / / Volume Laterality 07/28/2014 10:21 07/28/2014 PM CDT 10:27 PM CDT Cooper Shelley MD LAB_1 Performing Organization Address City/[facility]/ZIP Code Phon e Number [address] [address] GLUCOSE, WHOLE BLOOD POC (07/28/2014 9:09 PM CDT) athologist Signature Glucose, Whole 122 70 - 180 [facility] Blood mg/dl [facility]ITAL Comment: Point of Care Testing RN Notified Specimen Anatomical Collection Method Collection Time Receive d Time (Source) Location / / Volume Laterality 07/28/2014 9:09 PM 4 9:15 CDT PM CDT Cooper Shelley MD LAB_1 Performing Organization Address City/[facility]/ZIP [facility] Phon e Number [address] [address] BB HOLD TUBE ([facility] ONLY) (07/28/2014 7:40 PM CDT) [facility] gist Method Time Signature BB Hold Tube Blood Bank [facility] save tube HOSPITAL expires in 3 days Specimen Anatomical Collection Method Collection Time Receive d Time (Source) Location / / Volume Laterality 07/28/2014 7:40 PM 4 8:17 CDT PM CDT Narrative [facility] - 07/28/2014 8:19 PM CD T Performed at [facility] , [address] [place] [id number] Cooper Shelley MD LAB_1 Performing Organization Address City/[facility] Phon e Number [address] [address] BB HOLD TUBE ([facility] ONLY) (07/28/2014 7:35 PM CDT) [facility] gist Method Time Signature BB Hold Tube Blood Bank [facility] expires in 3 days Specimen Anatomical Collection Method Collection Time Receive d Time (Source) Location / / Volume Laterality 07/28/2014 7:35 PM 4 8:18 CDT PM CDT [facility] - 07/28/2014 8:20 PM CD T Performed at [facility] , [address] [place] [id number] Cooper Shelley MD LAB_1 Performing Organization Address City/[facility]/ZIP Code Phon e Number [address] [address] GLUCOSE, WHOLE BLOOD POC (07/28/2014 6:42 PM CDT) P athologist Signature Glucose, Whole 129 70 - 180 [facility] Blood mg/dl [facility]OSPITAL Comment: Point of Care Testing No Action Required Specimen Anatomical Collection Method Collection Time Receive d Time (Source) Location / / Volume Laterality 07/28/2014 6:42 PM 4 6:50 CDT PM CDT Cooper Shelley MD LAB_1 Performing Organization Address City/[facility]/ZIP Code Phon e Number [address] [address] ABO Rh & Antibody Screen (Type & Screen) (07/28/2014 5:58 PM CDT) Patholo gist Method Time Signature Crossmatch 07/31/2014 [facility] ABO/RH(D) A NEGATIVE [facility] Antibody NEGATIVE [facility] Specimen Anatomical Collection Method Collection Time Receive d Time (Source) Location / / Volume Laterality 07/28/2014 5:58 PM 4 5:59 CDT PM CDT Narrative [facility] - 07/28/2014 6:54 PM CD T Performed at [facility] , [address] [place] [id number] Cooper Shelley MD LAB_1 Performing Organization Address [facility] Phon e Number [address] [address] (ABNORMAL) aPTT (Activated Partial Thromboplastin Time) (07/28/2014 5:58 PM CDT) P athologist Signature PTT 51.2 (H) 24.0 - 37.0 [facility] Specimen Anatomical Collection Method Collection Time Receive d Time (Source) Location / / Volume Laterality 07/28/2014 5:58 PM 4 5:59 CDT PM CDT [facility] - 07/28/2014 6:30 PM CD T Performed at [facility] , [address] [place] [id number] Cooper Shelley MD LAB_1 Performing Organization Address City/[facility] Phon e Number [address] [address] (ABNORMAL) INR/Protime (PT/INR) (07/28/2014 5:58 PM CDT) P athologist Signature Protime 15.3 (H) 12.0 - 14.5 [facility] INR 1.2 (H) 0.9 - 1.1 [facility] Specimen Anatomical Collection Method Collection Time Receive d Time (Source) Location / / Volume Laterality 07/28/2014 5:58 PM 4 5:59 CDT PM CDT [facility] - 07/28/2014 6:30 PM CD T Performed at [facility] , [address] [place] [id number] Cooper Shelley MD LAB_1 Performing Organization [address] [facility] Phon e Number [address] [id number] (ABNORMAL) Basic Metabolic Panel (BUN, Ca, Cl, CO2, Creat, Gluc, K, Na) (07/28/2014 5:58 PM CDT) athologist Signature Sodium 134 (L) 135 - 145 [facility] mmol/L HOSPITAL Potassium 4.6 3.5 - 5.3 [facility] mmol/L [facility]OSPITAL Chloride 96 95 - 106 [facility] mmol/L [facility] CO2 27 22 - 30 [facility] mmol/L [facility] Anion Gap 11 7 - 16 [facility] (calc.) mmol/L HOSPITAL Glucose 135 70 - 180 [facility] mg/dl [facility]OSPITAL Calcium 9.6 8.4 - 10.2 [facility] mg/dl [facility]OS[facility]ITAL BUN 12 7 - 20 [facility] mg/dl [facility]OS[facility] Creatinine 0.71 0.66 - [facility] 1.25 mg/dl HOSPITAL GFR, Estimated >60 >60 [facility] ml/min/1.7 [facility]ITAL 3m2 GFR, Est., If >60 >60 [facility] Black ml/min/1.7 [facility] 3m2 Specimen Anatomical Collection Method Collection Time Receive d Time (Source) Location / / Volume Laterality 07/28/2014 5:58 PM 4 5:59 CDT PM CDT [facility] - 07/28/2014 6:30 PM CD T Performed at [facility] , [address] [place] [id number] Cooper Shelley MD LAB_1 Performing Organization Address [facility] Phon e Number [address] [id number] (ABNORMAL) Hemogram with Platelets (07/28/2014 5:58 PM CDT) athologist Signature WBC 7.0 4.0 - 11.0 [facility] k/ul [facility]OSPITAL RBC 4.27 (L) 4.5 - 5.9 [facility] M/ul HOSPITAL Hemoglobin 13.0 (L) 13.5 - 17.5 [facility] g/dl HOSPITAL HCT 38.6 (L) 41.0 - 53.0 [facility] % HOSPITAL MCV 90.4 80 - 100 fl [facility] MCH 30.4 26 - 34 pg [facility] MCHC 33.7 32 - 36 [facility] g/dl HOSPITAL RDW 13.3 11.5 - 14.5 [facility] Platelets 173 150 - 450 [facility] k/ul HOSPITAL MPV 10.7 9.4 - 12.4 [facility] HOSPITAL Specimen Anatomical Collection Method Collection Time Receive d Time (Source) Location / / Volume Laterality 07/28/2014 5:58 PM 4 5:59 CDT PM CDT Narrative [facility] - 07/28/2014 6:21 PM CD T Performed at [facility] , [address] [place] [id number] Cooper Shelley MD LAB_1 Performing Organization Address City/State/ZIP Code Phon e Number [address] [address] EKG IP (07/28/2014 12:00 AM CDT) Specimen [...] Forbes RN - 08/02/2014 7:27 PM CDT [facility] Discharge Note - Nursing Admission Date/Time: [...] of all instructions. Left floor with paper Columbia p rescription, this wasn't filled by [facility] pharmacy. Will take and fill at [facility]. All medical devices (telemetry/IV/etc) unless otherwise ordered, have been removed and stored: Yes Report Completed by: Aidee Parks RN --- End of Report --- Plan of Care - Priti Hickey RN - 08/02/2014 4:34 PM CDT Problem: General Plan of Care Goal: Discharge Needs Assessment 08/02/14 2917 Care Coordination Care Team Actions Needed MD medical clearance;PT/OT consult;patient requires further observation [facility] Plan of Care Note Assessment: Discharge planning [...] Forbes RN - 08/02/2014 3:48 PM CDT [facility]. MD Notified Note Name of MD notified: Dr. Kathleen Time of MD notification: 1500 hours and 49 minutes Reason: BP @ 1444 163/98, hydralazine 25 mg given. Now BP 162/94. Ok to d/c Response: Yes ok to d/c follow-up with primary care doctor. Aidee Parks RN --- End of Report --- Plan of Care - Luke Siegel - 08/02/2014 12:22 PM CDT [facility] Complementary Care Therapy Note Complementary Care Therapy [...] Date: 08/02/2014 Report Completed by: Luke Siegel [facility] Pager # [phone] Thank you for referring this pt to Complementary Care Therapies. --- End of Report --- Plan of Care - Stella Parra RN - 08/02/2014 7:54 AM CDT Problem: General Plan of Care Goal: Plan of Care Review The patient and/or their bank representative will communicate an understanding of their [...] Obstetrics) ??? Potential Problems (Perioperative Period) Ongoing [facility] Plan of Care Note Assessment: pain, activity. Plan: will continue to assess and medicate as needed for pain. Will encourage increase activity. Subjective: rates pain on the back 3/10, tolerable relief stated with Columbia. Per patient tired and refused to get up in chair. Objective: patient is alert and oriented x4. Adequate pain relief with Columbia. Dangle at side of bed for dinner. [place] patent. 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 Completed 1L of IVF. Had 75% for dinner. --- End of Report --- Plan of Care - Mónica Saldana RN - 08/01/2014 3:03 PM CDT Problem: General Plan of Care Goal: Plan of Care Review The patient and/or their bank representative will communicate an understanding of their plan of care. Outcome: Ongoing [facility] Plan of Care Note Assessment: Orthostatic bp [...] Saldana RN - 08/01/2014 10:52 AM CDT [facility]. MD Notified Note Name of MD notified: Merly Time of MD notification: 1000 hours and 52 minutes Reason: BP 71/43 sitting in a chair. HR 96. Pls advise. Response: Mónica Saldana RN --- End of Report --- Plan of Care - Cortney Montez RN - 08/01/2014 8:07 AM CDT Problem: Perioperative Period (Adult, Obstetrics) Intervention: Pressure Reduction Techniques [facility] Plan of Care Note Assessment: Pain Plan: [...] Saldana RN - 08/01/2014 8:07 AM CDT [facility]. MD Notified Note Name of MD notified: [...] Obstetrics) ??? Potential Problems (Perioperative Period) Ongoing [facility] Plan of Care Note Assessment: Comfort. Plan: [...] (reference Perioperative Period (Adult, Obstetrics) CPG) 07/31/14 4952 Goal/Outcome Evaluation Problems Assessed (Perioperative Period) situational [...] of Care Review The patient and/or their bank representative will communicate an understanding of their [...] cleansing provided Plan of Care - Tania Niteo RN - 07/30/2014 7:08 PM CDT [facility] Rapid Response Team Note Time, Date & [...] Garcia RN - 07/30/2014 3:11 PM CDT [facility] Plan of Care Note Assessment: Neuro Status [...] this shift at approximately 1305 this shift, [employer] called with MD presence, staff came and [...] to have resided at approximately 1335, see [employer] note, pt has incision to top of head that is stapled, old drainage to note, drain was D/C'd this shift, at approximately 1200, just prior to [employer], pt has adequate amounts of urine via de la cruz, colostomy has small amount of soft stool to note, pt has been up and into the WC with assist of 2 and use of charis, to lerates well. --- End of Report --- Plan of Care - Luke Siegel - 07/30/2014 1:21 PM CDT [facility] Missed Visit Note [facility] attempted to see patient today for Massage Therapy. Unable to see patient for this reason: [employer] activated at 1:21pm. Will attempt again as soon as possible. Time: 4:14 PM Date: 07/30/2014 Report Completed by: Luke Siegel, [facility] Pager # [phone] Thank you for referring this pt to [facility]. --- End of Report --- Plan of Care - Karo Murray RN - 07/30/2014 7:51 AM CDT Problem: General Plan of Care Goal: Plan of Care Review The patient and/or their bank representative will communicate an understanding of their plan of care. Outcome: Ongoing 07/30/14 0750 Coping/Psychosocial Response Interventions Plan of Care Reviewed with patient;spouse Plan of Care Progress progress toward functional goals is gradual Plan of Care - Aidee Forbes RN - 07/29/2014 11:10 PM CDT [facility] Nursing Transfer Note (To/From ICU / Progressive Care) Admission Date/Time: 07/28/2014 4:05 PM Time of transfer: 2134 Transfer from room #: SICU Accepting nursing unit: [facility] Valuables/belongings sent with patient?: Yes Dentures: No Glasses/Contacts: Glasses Hearing Aid: N/A Transported by: Bed Family notified of unit transfer and change in patients condition: Yes General condition of patient at time of transfer: A&0 X 4. Neuro/cms intact. Maker Up Folding strong BUE. Denies pain or headache. at [...] Period (Adult, Obstetrics) Intervention: Pressure Reduction Devices [facility] Plan of Care Note Assessment: skin integrity Plan: turn patient to preserve skin Subjective: pt awake and oriented. Makes needs for turns known. in room most of day assisting in cares. Multiple pillows used for elevation of extremities. Objective: skin intact and patient comfortable. --- End of Report --- Plan of Care - Mitch Kirkland - 07/29/2014 5:17 PM CDT [facility]OSP[facility] CASTING MOLDER NOTE - The pt received Sacrament of the Sick (anointing) today. Fr. Mitch Kirkland, [facility] Plan of Care - Archana Pace - 07/29/2014 10:47 AM CDT [facility] Artist Model Department Note Advice Clerk Notes: Initial visit with Jeff and family present at the bedside. Jeff shares he is doing well after surgery and hopes to transfer out of SICU today. Jeff & family are from [place] and Jeff is involved in his parish there. He would appreciate having the hospital manager applied come by to provide the sacrament of the sick. I informed him the hospital manager applied is not available today but may be in the hospital this evening, if not then definitely tomorrow morning. Interventions Offered: Introduction, supportive listening, blessing, update pt/family on manager applied availability. Plan: I have left a message for the hospital manager applied to see pt tonight (if the manager applied is in-house) or tomorrow for sure. Artist Model remains available to pt and/or family for spiritual and emotional support asneeded or requested. Report Completed by: Archana Pace M.Div, [facility], Staff Advice Clerk --- End of Report --- Plan of Care - Jodi Ordonez RN - 07/29/2014 7:38 AM CDT Problem: General Plan of Care Goal: Plan of Care Review The patient and/or their bank representative will communicate an understanding of their [...] of Care Review The patient and/or their bank representative will communicate an understanding of their plan of care. Outcome: Ongoing 07/28/14 9085 Coping/Psychosocial Response Interventions Plan of Care Reviewed [...] 08/01/2014 1:35 PM CDT 1,000 mg lidocaine-epinephrine [id number] % injec tion Given 07/28/2014 7:00 PM [...] metoPROLOL tartrate (aka LOPRESSOR) tablet 25 mg ([facility]) 0842 (Given - Provider: Priti Hickey [...]
--- OUTSIDE RECORDS SUMMARY | 2022-07-04 15:07 | XMS_ITS | Encounter Summary ---
:1945 Author Organization [facility] Address [address] [place] [address] Care Team Providers Name Role Phone Unavailable Primary Care Provider Unavailable Encounter Details Date Type Department Care Team Description 07/28/2014 Orders Only External to External, [place] [address] Social History Tobacco Use Types Packs/Day Years [...]
--- OUTSIDE RECORDS SUMMARY | 2022-07-04 15:07 | XMS_ITS | Encounter Summary ---
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 Referral ID Status Reason Start Date Expiration Date Visits Requ ested Visits Authorized [id number] Closed 1 1 Encounter Details Date Type Department Care Team Description 07/30/[address] Cooper Shelley MD [address] [place] [address] [place] [address] [phone] (Wo rk) Social History Tobacco Use Types [...] contrast. CONTRAST: None. SEDATION: None. COMPARISON: [facility] [place] perform ed at 6:15 AM [...] contrast. CONTRAST: None. SEDATION: None. COMPARISON: [facility] [place] perform ed at 6:15 AM [...]
--- OUTSIDE RECORDS SUMMARY | 2022-07-04 15:07 | XMS_ITS | Encounter Summary ---
:1945 Author Organization [facility] Address [address] [place] [address] Care Team Providers Name Role Phone Unavailable Primary Care Provider Unavailable Reason for Visit Auth/Cert - Closed Specialty Diagnoses / Procedures Referred By Contact Refer red To Contact Diagnoses Subdural hemorrhage following injury, without mention of open intracranial wound, unspecified state of consciousness . Referral ID Status Reason Start Date Expiration Date Visits Requ ested Visits Authorized [id number] Closed 1 1 Encounter Details Date Type Department Care Team Description 07/31/[address] Cooper Shelley MD [address] [place] [address] [place] [address] [phone] (Wo rk) Social History Tobacco Use Types [...]
--- OUTSIDE RECORDS SUMMARY | 2022-07-04 15:07 | XMS_ITS | Encounter Summary ---
:1945 Author Organization [facility] Address [address], [place] [address] Care Team Providers Name Role Phone Unavailable Primary Care Provider Unavailable Reason for Visit Reason Onset Date Comments QUESTIONS, REFERRAL 08/03/2014 QUESTIONS, GENERAL 08/03/2014 Encounter Details Date Type Department Care Team Description 08/03/2014 Telephone [employer] Cancer Shin Salvador QU ESTIONS, REFERRAL; Center at [facility] MD Artemio [facility], [address] [phone] Social History Tobacco Use Types Packs/Day Years [...] appt. Detailed message left for Jeff and Heather stating results per MD note below as [...] order head CT They are coming from [facility] Could we coordinate f/u with me on [...]
--- OUTSIDE RECORDS SUMMARY | 2022-07-04 15:07 | XMS_ITS | Encounter Summary ---
:1945 Author Organization [facility] Address [address] [place] [address] Care Team Providers Name Role Phone Unavailable Primary Care Provider Unavailable Reason for Visit Reason Comments Post Hospital Discharge Follow Up Encounter Details Date Type Department Care Team Description 08/03/2014 Telephone Fleet Administrative Assistant Charan Aguilar, RN [facility] [address] - [facility] [place] [id number] [facility] [address] [place] [address] [place] [address] Social History Tobacco Use Types Packs/Day Years [...] home. Contact Spoke with patient. 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 Verbal permission obtained to talk to painter and body work? not applicable Patient Concerns and Condition: Patient [...] to call Careline and number to call: [phone] or . Confirmed using teach back method that patient and/or caregiver can state their medications and doses to take, discharge instructions, appointments they have scheduled, who to call if their condition worsens. Yes Follow up Plan: Appointments already scheduled: 08/11/2014 2:20 PM Nurse, Neurosurgery [facility] Specialty Center 401 NeuroSurgery [phone] 09/02/2014 10:00 AM Shin Salvador MD [facility] [phone] 09/07/2014 11:45 AM Mr 1a [facility] MRI [phone] 09/07/2014 1:00 PM Garry Neff MD Specialty Center 401 NeuroSurgery [phone] 09/17/2014 2:40 PM Cooper Shelley MD Specialty Center 401 NeuroSurgery [phone] 09/23/2014 10:00 AM Zelalem Cohen MD Specialty [place] 401 Interventional Pain Management [phone] Appointments patient still needs to schedule: N/A Referrals Recommended on Discharge Summary: None Referral placed during this call: None needed documented in this encounter Plan of Treatment Not on filedocumented as of this encounter Visit Diagnoses Not on filedocumented in this encounter
--- OUTSIDE RECORDS SUMMARY | 2022-07-04 15:07 | XMS_ITS | Encounter Summary ---
:1945 Author Organization [facility] Address [address] [place] [address] Care Team Providers Name Role Phone Unavailable Primary Care Provider Unavailable Reason for Visit Auth/Cert - Closed Specialty Diagnoses / Procedures Referred By Contact Refer red To Contact Diagnoses Subdural hemorrhage following injury, without mention of open intracranial wound, unspecified state of consciousness . Referral ID Status Reason Start Date Expiration Date Visits Requ ested Visits Authorized [id number] Closed 1 1 Encounter Details Date Type Department Care Team Description 07/30/2014 [facility] [address] [place] [address] [place] [address] [phone] (Wo rk) Social History Tobacco Use Types [...]
--- OUTSIDE RECORDS SUMMARY | 2022-07-04 15:07 | XMS_ITS | Encounter Summary ---
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 Referral ID Status Reason Start Date Expiration Date Visits Requ ested Visits Authorized [id number] Closed 1 1 Encounter Details Date Type Department Care Team Description 07/29/[address] Cooper Shelley MD [address] [place] [address] [place] [address] [phone] (Wo rk) Social History Tobacco Use Types [...]
--- OUTSIDE RECORDS SUMMARY | 2022-07-04 15:07 | XMS_ITS | Encounter Summary ---
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 Referral ID Status Reason Start Date Expiration Date Visits Requ ested Visits Authorized [id number] Closed 1 1 Encounter Details Date Type Department Care Team Description 07/30/[address] Cooper Shelley MD [address] [place] [address] [place] [address] [phone] (Wo rk) Social History Tobacco Use Types [...]
--- OUTSIDE RECORDS SUMMARY | 2022-07-04 15:07 | XMS_ITS | Encounter Summary ---
:1945 Author Organization [facility] Address [address] [place] [address] Care Team Providers Name Role Phone Unavailable Primary Care Provider Unavailable Encounter Details Date Type Department Care Team Description 07/28/2014 Orders Only External to External, [place] [address] Social History Tobacco Use Types Packs/Day Years [...]
--- OUTSIDE RECORDS SUMMARY | 2022-07-04 15:07 | XMS_ITS | Encounter Summary ---
:1945 Author Organization [facility] Address [address], [place] [address] Care Team Providers Name Role Phone Franklin Squires MD Primary Care Provider Encounter Details Date Type Department Care Team Description 07/28/2014 Outside Hospital External to External, [facility] No address VISIT/[place] [address] Social History Tobacco Use Types Packs/Day Years [...] on filedocumented in this encounter Care Teams Invasive Physician Relationship Specialty Start Date End Date Franklin Squires MD PCP - General Family Practice 03/08/[address] [place] [address] [place] [address] documented as of this encounter
--- OUTSIDE RECORDS SUMMARY | 2022-07-04 15:07 | XMS_ITS | Encounter Summary ---
:1945 Author Organization [facility] Address [address] [address] Care Team Providers Name Role Phone Franklin [...] filedocumented in this encounter Care Teams Drill Press Operator Helper Relationship Specialty Start Date End Date Franklin Squires MD PCP - General Family Practice 03/08/[address] [place], [place] [address]LES Wong [address] documented as of this encounter
--- OUTSIDE RECORDS SUMMARY | 2022-07-04 15:08 | XMS_ITS | Encounter Summary ---
:1945 Author Organization [facility] Address [address], [place] [address] Care Team Providers Name Role Phone Unavailable Primary Care Provider Unavailable Reason for Visit Reason Onset Date Comments Refill 06/03/2014 gabapentin Encounter Details Date Type Department Care Team Description 06/03/2014 Refill Specialty Center 401 Zelalem Cohen , Refill (gabapentin) Interventional Pain DO Management [address] [place] [address] [phone] (Wo rk) Social History Tobacco Use Types [...] refill request for gabapentin 400mg rx from [facility], [place]. Site Auditor sent refill refusal with notation this was [...]
--- OUTSIDE RECORDS SUMMARY | 2022-07-04 15:08 | XMS_ITS | Encounter Summary ---
:1945 Author Organization [facility] Address [address] [address] Care Team Providers Name Role Phone Unavailable Primary Care Provider Unavailable Encounter Details Date Type Department Care Team Description 02/24/2014 Orders Only External to Alfonso Neff MD [address] [place] [phone] (Wo rk) Social History Tobacco [...]
--- OUTSIDE RECORDS SUMMARY | 2022-07-04 15:08 | XMS_ITS | Encounter Summary ---
:1945 Author Organization [facility] Address [address] [address] Care Team Providers Name Role Phone Franklin Squires MD Primary Care Provider Encounter Details Date Type Department Care Team Description 05/04/2014 [facility] May RandelER OF MEDICAL 401 Physical Kirsten Clemente MD NECESS[employer] [address] [place] [address] [place], [place] [phone] [facility] Social History Tobacco Use Types Packs/Day Years [...] on filedocumented in this encounter Care Teams Superintendent Tests Relationship Specialty Start Date End Date Farnklin Squires MD PCP - General Family Practice 03/08/[address] [place], [place] [address]LES Wong [address] documented as of this encounter
--- OUTSIDE RECORDS SUMMARY | 2022-07-04 15:08 | XMS_ITS | Encounter Summary ---
:1945 Author Organization [facility] Address [address], [place] [address] Care Team Providers Name Role Phone Franklin Squires MD Primary Care Provider Encounter Details Date Type Department Care Team Description 06/04/2014 [facility] 401 [facility] Zelalem MEDICAID PT Interventional Pain L, DO INFORMATION [facility]MP[facility] Management [address] RECOVERY [address] [place] [address] [phone] Social History Tobacco Use Types Packs/Day Years [...] on filedocumented in this encounter Care Teams Hematology Nurse Educator Relationship Specialty Start Date End Date Franklin Squires MD PCP - General Family Practice 03/08/[address] [place] [address] [place] [address] documented as of this encounter
--- OUTSIDE RECORDS SUMMARY | 2022-07-04 15:08 | XMS_ITS | Encounter Summary ---
:1945 Author Organization [facility] Address [address] [address] Care Team Providers Name Role Phone Unavailable Primary Care Provider Unavailable Reason for Referral Procedure/Equipment (Routine) - Incomplete Specialty Diagnoses / Procedures Referred By Contact Refer red To Contact Procedures Jodi Aguila PA-C [place] BONE IMAGING (SPECT) [address] [place] [address] Referral ID Status Reason Start Date Expiration Date Visits V isits Requested Authorized [id number] Incomplete 06/07/2014 6 6 Procedure/Equipment (Routine) - Closed Specialty Diagnoses / Procedures Referred By Contact Refer red To Contact Diagnoses LBP (low back pain) Jodi Aguila PA-C Procedures XR L-SPINE FLEXION/EXTENSION ONLY [address] [place] [address] Referral ID Status Reason Start Date Expiration Date Visits Requ ested Visits Authorized [id number] Closed 06/03/2014 1 1 Reason for Visit Reason Comments Revisit Encounter Details Date Type Department Care Team Description 06/07/2014 Office Visit [facility] Jodi Aguila LBP (low back pain) 401 NeuroSurgery LYDIA (Primary Dx) [address] [place] [address] [place], [place] [phone] Social History Tobacco Use Types Packs/Day Years [...] understanding. Please call the Neurosurgery/Spine Clinic at [phone] with any further questions or concerns. documented [...] and L5-S1 (05/06/15) facet injections recently at [facility]. He does not remember is one was more helpful but he did not have long-term relief with either of these. Per the [facility] notes, he obtained 10% and 20% relief [...]
--- OUTSIDE RECORDS SUMMARY | 2022-07-04 15:08 | XMS_ITS | Encounter Summary ---
:1945 Author Organization [employer] Address [address], [place] [address] Care Team Providers Name Role Phone Unavailable Primary Care Provider Unavailable Reason for Visit Reason Onset Date Comments Orders Needed 04/20/2014 Encounter Details Date Type Department Care Team Description 04/20/2014 Telephone Specialty Center 401 Selene Johnson, RN Orders Needed NeuroSurgery [address] [place] [address] [place] [address] [phone] Social History Tobacco Use Types Packs/Day Years [...] at L -5-s-1-order written and faxed to [facility]. Patient aware. And will call with follow up call after injection completed. Selene Johnson RN 04/20/2014, 2:36 PM documented in this encounter Plan of Treatment Not on filedocumented as of this encounter Visit Diagnoses Diagnosis Back pain - Primary Backache, unspecified documented in this encounter
--- OUTSIDE RECORDS SUMMARY | 2022-07-04 15:08 | XMS_ITS | Encounter Summary ---
:1945 Author Organization [facility] Address [address] [place] [address] Care Team Providers Name Role Phone Unavailable Primary Care Provider Unavailable Reason for Visit Procedure/Equipment (Routine) - Closed Specialty Diagnoses / Procedures Referred By Contact Refer red To Contact Diagnoses LBP (low back pain) Jodi Aguila PA-C Procedures XR L-SPINE FLEXION/EXTENSION ONLY [address] [place] [address] Referral ID Status Reason Start Date Expiration Date Visits Requ ested Visits Authorized [id number] Closed 06/03/2014 1 1 Encounter Details Date Type Department Care Team Description 06/07/2014 [facility] Jodi Aguila PA-C LBP (low back pain) Radiology [address] [place] [address] [place] [address] [phone] Social History Tobacco Use Types Packs/Day Years [...]
--- OUTSIDE RECORDS SUMMARY | 2022-07-04 15:08 | XMS_ITS | Encounter Summary ---
:1945 Author Organization [employer] Address [address] [address] Care Team Providers Name Role Phone Unavailable Primary Care Provider Unavailable Reason for Visit Reason Comments Refill Encounter Details Date Type Department Care Team Description 03/02/2014 Refill Specialty Center 401 Zelalem Cohen, DO Refill Interventional Pain Management [address] [place] [address] [place] [address] [phone] Social History Tobacco Use Types Packs/Day Years [...] change in cymbalta, refilled 5. Talked with [facility] re: compounded cream, no longer being [...]
--- OUTSIDE RECORDS SUMMARY | 2022-07-04 15:08 | XMS_ITS | Encounter Summary ---
:1945 Author Organization [employer] Address [address], [place] [address] Care Team Providers Name Role Phone Unavailable Primary Care Provider Unavailable Reason for Visit Reason Comments Refill Encounter Details Date Type Department Care Team Description 03/31/2014 Refill Specialty Center 401 Zelalem Cohen, DO Refill Interventional Pain Management [address] [place] [address] [place] [address] [phone] Social History Tobacco Use Types Packs/Day Years [...] he had an L 4/5 VAN at [facility] in [place] last week per Dr. Neff's orders. Was [...]
--- OUTSIDE RECORDS SUMMARY | 2022-07-04 15:08 | XMS_ITS | Encounter Summary ---
:1945 Author Organization [facility] Address [address], [place] [address] Care Team Providers Name Role Phone Unavailable [...]
--- OUTSIDE RECORDS SUMMARY | 2022-07-04 15:08 | XMS_ITS | Encounter Summary ---
:1945 Author Organization [facility] Address [address], [place] [address] Care Team Providers Name Role Phone Unavailable Primary Care Provider Unavailable Reason for Visit Reason Onset Date Comments Refill 04/26/2014 Encounter Details Date Type Department Care Team Description 04/26/2014 Refill [facility] 401 Zelalem Cohen, DO Refill Interventional Pain Management [address] [place] [address] [place] [address] [phone] Social History Tobacco Use Types Packs/Day Years [...] change in cymbalta, [facility] no longer being [...]
--- OUTSIDE RECORDS SUMMARY | 2022-07-04 15:08 | XMS_ITS | Encounter Summary ---
:1945 Author Organization [employer] [facility] Address [address] [address] Care Team Providers Name Role Phone Unavailable Primary Care Provider Unavailable Reason for Visit Reason Onset Date Comments Injection 03/02/2014 Encounter Details Date Type Department Care Team Description 03/02/2014 Telephone Specialty Center 401 Garry Neff MD Injection NeuroSurgery [address] [place] [address] [place] [address] [phone] Social History Tobacco Use Types Packs/Day Years [...] with steroid. This will be done at [facility] to be closer for patient..Isrrael Jenkins RN 03/16/2014, 4:04 PM Orders written, faxed to [facility] and patient informed.Isrrael Jenkins RN 03/16/2014, 4:04 [...] MRI. Patient's PCP Dr. Loretta Mcmahan at [facility] in [place] ordered MRI for patient. Per results Dr. [...]
--- OUTSIDE RECORDS SUMMARY | 2022-07-04 15:08 | XMS_ITS | Encounter Summary ---
:1945 Author Organization [facility] Address [address] [address] Care Team Providers Name Role Phone Unavailable Primary Care Provider Unavailable Reason for Visit Procedure/Equipment (Routine) - Incomplete Specialty Diagnoses / Procedures Referred By Contact Refer red To Contact Procedures Jodi Aguila PA-C [facility] (SPECT) [address] [place] [address] Referral ID Status Reason Start Date Expiration Date Visits V isits Requested Authorized [id number] Incomplete 06/07/2014 6 6 Encounter Details Date Type Department Care Team Description 06/11/2014 Imaging [facility] Jodi Aguila PA-C [address] [facility] [address] [place], [place] [id number] [place] [address] [phone] (Wo rk) Social History Tobacco Use Types [...]
--- OUTSIDE RECORDS SUMMARY | 2022-07-04 15:08 | XMS_ITS | Encounter Summary ---
:1945 Author [facility] Address [address], [place] [address] Care Team Providers Name Role Phone Franklin Squires MD Primary Care Provider Encounter Details Date Type Department Care Team Description 12/16/2013 Correspondence [facility] Rad[facility], MRI [employer] [address] [facility] [place] [address] Social History Tobacco Use Types Packs/Day Years Used Date Smoking Tobacco: Never Smokeless Tobacco: Never Alcohol Use Standard Drinks/Week Comments No 0 (1 standard drink = 0.6 oz pure alcoho l) Sex Assigned at Date Recorded Male 08/06/2021 5:59 PM CDT documented as of this encounter Progress Notes Radiology, Provider - 12/16/2013 12:00 AM CST FRAMER documented in this encounter Plan of Treatment Not on filedocumented as of this encounter Visit Diagnoses Not on filedocumented in this encounter Care Teams Nuclear Powerplant Supervisor Relationship Specialty Start Date End Date Franklin Squires MD PCP - General Family Practice 03/08/[address] [place] [address] [place] [id number] documented as of this encounter
--- OUTSIDE RECORDS SUMMARY | 2022-07-04 15:08 | XMS_ITS | Encounter Summary ---
:1945 Author Organization [employer] Address [address] [place] [address] Care Team Providers Name Role Phone Unavailable Primary Care Provider Unavailable Reason for Visit Auth/Cert - Closed Specialty Diagnoses / Procedures Referred By Contact Refer red To Contact Diagnoses Subdural hemorrhage following injury, without mention of open intracranial wound, unspecified state of consciousness . Referral ID Status Reason Start Date Expiration Date Visits Requ ested Visits Authorized [id number] Closed 1 1 Encounter Details Date Type Department Care Team Description 07/28/2014 Surgery RH Operating Room Cooper Shelley MD CRANIOTOMY [address] [place] [address] [place] [address] [phone] (Wo rk) Social History Tobacco Use Types [...] home, and please let our office know. [facility], 4th floor [address] [place] [address] Cooper Shelley and Molly Diaz PA-C is scheduled for 09/14 at 2:40pm. You will need a head CT prior. Please stop at radiology on the 1st floor 30 minutes prior to appointment. [facility], 4th floor [address] [employer] [address] [employer], [place] [id number] Scheduling Instructions: Please call [phone], option 3 for any rescheduling needs. Order [...] clinic if you have any incisional drainage. [phone]. If you would like to have your [...] in strength to your extremeties. Neurosurgery clinic [phone]. Diet Order Comments: Resume pre operative diet. [...] Melva Raymundo R.N. Nurse Clinician Neurosurgery Pager [phone] Associated attestation - Molly Diaz PA-C - 08/10/2014 4:09 PM CDT Agree with above note I have reviewed the patient's images and performed a pertinent exam. Molly Diaz PA-C, 08/10/2014, 4:08 PM Neurosurgery [phone] documented in this encounter Discharge Instructions Discharge [...] 101.5 degrees [place] [employer] [place] [address] For questions about your discharge instructions call the nursing unit : [facility], Emergency & Urgently Needed Care: For emergencies call 911 and/or get medical help right away. If you are a [facility] member and have medical needs after clinic hours you may call the CareLineat [phone] or . Smoking and second-hand smoke exposure: Smoking damages blood vessels, reduces the oxygen in your blood and makes your heart beat too fast. If you smoke you should quit. Everyone should avoid second- hand smoke. If you would like further assistance after your discharge, please contact [phone] or visit [email or web address] can offer further [...] weight will also be followed by the Director Trial when you go in for your treatment. [...] IM ONCE PRN ??? glucose-ascorbic acid (aka [id number]) chewable tablet 4 Tab 4 Tab Oral [...] IF >60 >60 ml/min/1.73m2 Narrative: Performed at [facility], [address] [place] [address] GLUCOSE, WHOLE BLOOD POC Result Value Range [...] Joaquín Brand MD, PGY1. Internal Medicine Resident. [phone] Associated attestation - Bayron Yanes MD - [...] mobility S/p ependymoma resection and treatment; coumadin shipping checker use; hasIVC filter. Neurogenic bladder. Prominent cortical [...] Molly Diaz PA-C, 08/02/2014, 2:24 PM Neurosurgery [phone] Priti Hickey RN - 08/02/2014 9:44 AM CDT [facility]. PA Notified Note Name of MD notified: [...] SODIUM, URINE RANDOM 13 Narrative: Performed at [facility], [address] [place] [address] OSMOLALITY, URINE Result Value Range OSMOLALITY, URINE 164 Narrative: Performed at [facility], [address] [place] [address] GLUCOSE, WHOLE BLOOD POC Result Value Range GLUCOSE, WHOLE BLOOD 182 (*) 70 - 180 mg/dl SODIUM Result Value Range SODIUM 131 (*) 135 - 145 mmol/L Narrative: Performed at [facility], [address] [place] [address] GLUCOSE, WHOLE BLOOD POC Result Value Range [...] IF >60 >60 ml/min/1.73m2 Narrative: Performed at [facility], [address] [place] [address] GLUCOSE, WHOLE BLOOD POC Result Value Range [...] time. Communicated with RN. Jessie Nieves MD ([facility] medicine) Pager: [phone] Jessie Nieves MBBS - 08/01/2014 11:30 AM [...] Somewhat worse c/w y'day. Appears Hypovolemia. - [place] of IV fluids - Repeat levels in [...] final recommendations from Hematology. Jessie Nieves MD ([facility] medicine) Pager: [phone] Merly Gaytan MD - 08/01/2014 11:17 AM [...] with Dr. Mateo Gaytan MD, PhD Neurosurgery [facility] [phone] Priti Kebede RN - 07/31/2014 12:14 PM CDT [facility]. MD Notified Note Name of MD [...] with Dr. Mateo Gaytan MD, PhD Neurosurgery [facility] [phone] Melva Raymundo RN - 07/30/2014 4:10 PM CDT Neurosurgery Progress Note 07/30/14 GEORGIE drain removed. Purse string suture tied. Incision clean and dry. Melva Raymundo R.N. Nurse Clinician Neurosurgery Pager [phone] Associated attestation - Cooper Shelley MD - 07/30/2014 4:17 PM CDT Agree with above note I have reviewed the patient's images and performed a pertinent exam. Cooper Shelley MD Neurosurgery Jodi Aguila PA-C - 07/30/2014 2:02 PM CDT Jeff is s/p R SDH evacuation on 07/28 QUOTER called for neuro change accompanied by diaphoresis [...] Mills MD - 07/30/2014 1:32 PM CDT [facility] Rapid Response Team Note Time, Date & Location Rm: [id number] Transfer/Admission Information 69y right handed M with [...] Molly Diaz PA-C, 07/30/2014, 10:29 AM Neurosurgery [phone] Brittny Barrett, ROASTMASTER, [employer] - 07/30/2014 9:58 AM CDT Endocrine SCIP [...] 24 hours. Brittny Barrett CNP Endocrinology Pager: [phone] Jodi Ordonez RN - 07/29/2014 9:29 PM CDT [facility] Nursing Transfer Note (To/From ICU / Progressive [...] Salazar MD - 07/29/2014 1:10 PM CDT [facility] SICU Critical Care Progress Note Date of [...] murmurs rubs or gallops :: Pulses: 100 Automobile Spring Repairer: NSR GI: Exam: :: Soft, non-tender, non-distended [...] Imaging studies, Lab results Disposition: Transfer to [place] [address] Plan for the day ?? Add scheduled BB with hold parameters ?? D/C nicardipine ?? ADAT ?? Transfer to [place] [address] per Neurosurgery recommendations CORINA ZavalaS3 I have [...] Scheduled Lorazepam :: PRN APAP :: PRN [place] :: PRN Dilaudid Sedation Holiday: :: not [...] no Rubs :: Pulses: II/IV bilaterally throughout Automobile Spring Repairer: :: NSR with intermittent ST GI: Exam: [...] hold parameters DC nicardipine ADAT Transfer to [place] [address] per NS Douglas CastanoLYDIA osborne SICU Staff [...] Raymundo RN - 07/29/2014 12:46 PM CDT [facility] NeuroSurgery Craniotomy Progress Note 07/29/2014 Vitals Temp [...] IM ONCE PRN ??? glucose-ascorbic acid (aka [id number]) chewable tablet 4 Tab 4 Tab Oral [...] mobility S/p ependymoma resection and treatment; coumadin shipping checker use; hasIVC filter. Neurogenic bladder Plan Patient [...] Melva Raymundo R.N. Nurse Clinician Neurosurgery Pager [phone] --- End of Report --- Associated attestation - Cooper Shelley MD - 08/07/2014 11:27 AM CDT Agree with above note I have reviewed the patient's images and performed a pertinent exam. Cooper Shelley MD Neurosurgery Malika Maardiaga RN - 07/28/2014 6:59 PM CDT [facility] Plan of Care Note Assessment: Pain Plan: [...] Shelley MD - 07/28/2014 8:48 PM CDT [facility] Brief Operative Progress Note Surgery Date: 07/28/2014 [...] SURGERY: 07/28/2014 OPERATING SURGEON: Cooper Shelley MD PIE CRIMPING MACHINE OPERATOR SURGEON: None. PREOPERATIVE DIAGNOSES: 1. Right subdural [...] We then freed the dura using a Gilbert 3 and then used a craniotome to [...] Dictated: 07/29/2014 13:17:42 Transcribed: 07/29/2014 13:40:36 Job: [id number] Doc: [id number] cc: Quan Corbett PA-C, Referring Provider documented in this encounter Consult Notes Jessie Nieves MBBS - 07/31/2014 5:18 PM CDTAssociated Order(s): MEDICINE INPT CONSULT [facility] Medicine Consultation Note () Date [...] 1999 S/p resection by Dr. Glasgow at [place] in 05/2000. However resection was incomplete due [...] Turp incl contrl postop bleed cmpl ??? 97801 total knee arthroplasty right ??? Ivc filter placement 1999 Family History Problem Relation Age of Onset ??? Cancer, Colon Mother ??? Cancer, Other Brother brother with throat cancer ??? Cancer, Breast Sister ??? Osteoporosis Mother no history of fractures Social History Occupational History ??? [employer] ??? [employer] ??? retired/disability Social History Main Topics ??? [...] recommendations from Hematology. Jessie Nieves MD Pager: [phone] Time spent was 60 minutes with >50% [...] subdural hematoma, and he was transferred to [facility] for neurosurgery care. He is now [...] 1999 S/p resection by Dr. Glasgow at [place] in 05/2000. However resection was incomplete due [...] Turp incl contrl postop bleed cmpl ??? 46190 total knee arthroplasty right ??? Ivc filter placement 1999 Family History Problem Relation Age of Onset ??? Cancer, Colon Mother ??? Cancer, Other Brother brother with throat cancer ??? Cancer, Breast Sister ??? Osteoporosis Mother no history of fractures Social History Occupational History ??? [employer] ??? [employer] ??? retired/disability Social History Main Topics ??? [...] help tip us in either direction regarding shipping checker anti-coagulant use. 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 Glasgow at [place] in 05/2000. However resection was incomplete due [...] Turp incl contrl postop bleed cmpl ??? 30685 total knee arthroplasty right ??? Ivc filter [...] dryness or diaphoresis Gait: deferred Affect: appropriate Budget Director Strenth: good b/l Lab/test results discussed with [...] to see Jeff Muñoz CNP Endocrinology Pager [phone] Oscar Clinton MD - 07/28/2014 9:09 PM CDT [facility] SICU Critical Care Acceptance Note Date: 07/28/2014 [...] 80 mg qD Gabapentin 400 mg TID [place] PRN Ativan 1 mg TID Niacin 500 [...] History ??? [employer] ??? [employer] ??? retired/disability Social History Main Topics ??? Smoking status: Never Smoker ??? Smokeless tobacco: Never Used ??? Alcohol Use: No ??? Drug Use: No ??? Sexual Activity: Partners: Female Other Topics Concern ??? Not on file Social History Narrative Wheelchair bound. Able to transfer from bed to wheelchair with assist of 1 at baseline. Lives with his in [place]. Vitals Filed Vitals: 07/28/14 1611 07/28/14 1842 [...] (*) 0.9 - 1.1 Narrative: Performed at [facility], [address] [place] [address] APTT (ACTIVATED PARTIAL THROMBOPLASTIN TIME Result Value Range PTT 51.2 (*) 24.0 - 37.0 sec Narrative: Performed at [facility], [address] [place] [address] ABO RH & ANTIBODY SCREEN (TYPE & SCREEN) Result Value Range CROSSMATCH EXPIRES 07/31/2014 ABO/RH(D) A NEGATIVE ANTIBODY SCREEN NEGATIVE Narrative: Performed at [facility], [address] [place] [address] head done at [facility] - [...] in AM Pain :: dilaudid PRN :: [place] PRN :: APAP prn Nausea :: zofran [...] 2/2 ependymoma, chronic :: continue de la rcuz Fluid status :: maintenance NS@100/hr :: BMP [...] SICU Oscar Clinton M.D. PGY-3, Emergency Department [id number] ([facility]) Associated attestation - Shantanu Mejia [...] Diaz PA-C - 07/28/2014 5:46 PM CDT [facility] HOSPITAL History and Physical () Admit [...] 1999 S/p resection by Dr. Glasgow at [place] in 05/2000. However resection was incomplete due [...] Turp incl contrl postop bleed cmpl ??? 88632 total knee arthroplasty right ??? Ivc filter placement 2000 History Social History ??? Marital Status: Spouse Name: N/A Number of Children: 2 ??? Years of Education: N/A Occupational History ??? [employer] ??? [employer] ??? retired/disability Social History Main Topics ??? Smoking status: Never Smoker ??? Smokeless tobacco: Never Used ??? Alcohol Use: No ??? Drug Use: No ??? Sexual Activity: Partners: Female Other Topics Concern ??? Not on file Social History Narrative Wheelchair bound. Able to transfer from bed to wheelchair with assist of 1 at baseline. Lives with his in [place]. Family History Problem Relation Age of Onset [...] Molly Diaz PA-C, 07/28/2014, 5:50 PM Neurosurgery [phone] Report Completed by: Molly Diaz PA-C --- [...] Results CT HEAD (ADULT) (09/17/2014 1:23 PM SOLUTION STRATEGIST) Anatomical Region Laterality Modality Head Computed Tomography Specimen (Source) Anatomical Collection Method Collection Time Re ceived Time Location / / Volume Laterality 09/17/2014 1:23 PM SOLUTION STRATEGIST Narrative 09/17/2014 6:02 PM SOLUTION STRATEGIST HEAD CT WITHOUT IV CONTRAST 09/17/2014 1:23 PM INDICATION: Subdural hematoma. TECHNIQUE: Head CT without IV contrast. COMPARISON: Head CT 08/26/2014 FINDINGS: Status post right parietal crayon painter niotomy. No residual or recurrent subdural hematoma. [...] CT 08/26/2014 FINDINGS: Status post right parietal crayon painter niotomy. No residual or recurrent subdural hematoma. [...] Cooper Shelley MD LAB_1 Performing Organization Address [facility]/ZIP [facility] e Number [address] [address] GLUCOSE, WHOLE BLOOD POC (08/02/2014 8:30 AM CDT) athologist Signature Glucose, Whole 143 70 - 180 [facility] Blood mg/dl HOSPITAL Comment: Point of Care Testing RN Notified Specimen Anatomical Collection Method Collection Time Receive d Time (Source) Location / / Volume Laterality 08/02/2014 8:30 AM 4 8:34 CDT AM CDT Cooper Shelley MD LAB_1 Performing Organization Address City/[facility] e Number [address] [address] (ABNORMAL) BASIC METABOLIC PANEL (08/02/2014 6:09 AM [...] Est., If >60 >60 [facility] Black ml/min/1.7 [facility] 3m2 Specimen Anatomical Collection Method Collection Time Receive d Time (Source) Location / / Volume Laterality 08/02/2014 6:09 AM 4 6:10 CDT AM CDT Narrative [facility] - 08/02/2014 6:53 AM CD T Performed at [facility] , [address] [place] [address] Jessie ASKEW LAB_1 Performing Organization Address City/[facility] Phon e Number [address] [address] (ABNORMAL) GLUCOSE, WHOLE BLOOD POC (08/01/2014 9:52 PM CDT) athologist Signature Glucose, Whole 224 (H) 70 - 180 [facility] Blood mg/dl HOSPITAL Comment: Point of Care Testing RN Notified Specimen Anatomical Collection Method Collection Time Receive d Time (Source) Location / / Volume Laterality 08/01/2014 9:52 PM 4 9:56 CDT PM CDT Cooper Shelley MD LAB_1 Performing Organization Address City/[facility]/ZIP Code Phon e Number [address] [address] (ABNORMAL) SODIUM (08/01/2014 5:44 PM CDT) athologist Signature Sodium 131 (L) 135 - 145 [facility] mmol/L [facility]OSPITAL Specimen Anatomical Collection Method Collection Time Receive d Time (Source) Location / / Volume Laterality 08/01/2014 5:44 PM 4 5:45 CDT PM CDT Narrative [facility] - 08/01/2014 5:57 PM CD T Performed at [facility] , [address] [place] [address] Jessie ASKEW LAB_1 Performing Organization Address City/[facility] Phon e Number [address] [address] (ABNORMAL) GLUCOSE, WHOLE BLOOD POC (08/01/2014 5:20 PM CDT) athologist Signature Glucose, Whole 182 (H) 70 - 180 [facility] Blood mg/dl HOSPITAL Comment: Point of Care Testing RN Notified Specimen Anatomical Collection Method Collection Time Receive d Time (Source) Location / / Volume Laterality 08/01/2014 5:20 PM 4 5:25 CDT PM CDT Cooper Shelley MD LAB_1 Performing Organization Address City/[facility]/ZIP [facility] Phon e Number [address] [address] OSMOLALITY, URINE (08/01/2014 3:03 PM CDT) athologist Signature Osmolality, 164 [facility] Urine HOSPITAL Specimen Anatomical Collection Method Collection Time Receive d Time (Source) Location / / Volume Laterality Urine specimen 08/01/2014 3:03 PM 014 3:10 (specimen) CDT PM CDT [facility] - 08/01/2014 3:54 PM CD T Performed at [facility] , [address] [place] [address] Cooper Shelley MD LAB_1 Performing Organization Address City/[facility]/ZIP [facility] Phon e Number [address] [address] SODIUM, URINE RANDOM (08/01/2014 3:03 PM CDT) athologist Signature Sodium, Urine 13 mmol/L [facility] Specimen Anatomical Collection Method Collection Time Receive d Time (Source) Location / / Volume Laterality Urine specimen 08/01/2014 3:03 PM 014 3:10 (specimen) CDT PM CDT [facility] - 08/01/2014 3:22 PM CD T Performed at [facility] , [address] [place] [address] Cooper Shelley MD LAB_1 Performing Organization Address City/[facility]/ZIP [facility] Phon e Number [address] [address] (ABNORMAL) GLUCOSE, WHOLE BLOOD POC (08/01/2014 12:41 [...] Organization Address City/State/ZIP Code Phon e Number [address] [address] (ABNORMAL) GLUCOSE, WHOLE BLOOD POC (08/01/2014 11:53 [...] Organization Address City/State/ZIP Code Phon e Number [address] [address] GLUCOSE, WHOLE BLOOD POC (08/01/2014 7:58 AM CDT) P athologist Signature Glucose, Whole 148 70 - 180 [facility] Blood mg/dl HOSPITAL Comment: Point of Care Testing RN Notified Specimen Anatomical Collection Method Collection Time Receive d Time (Source) Location / / Volume Laterality 08/01/2014 7:58 AM 4 8:01 CDT AM CDT Copoer Shelley MD LAB_1 Performing Organization Address City/State/ZIP Code Phon e Number [address] [address] (ABNORMAL) BASIC METABOLIC PANEL (08/01/2014 6:24 AM [...] Est., If >60 >60 [facility] Black ml/min/1.7 [facility] 3m2 Specimen Anatomical Collection Method Collection Time Receive d Time (Source) Location / / Volume Laterality 08/01/2014 6:24 AM 4 6:25 CDT AM CDT [facility] - 08/01/2014 7:12 AM CD T Performed at [facility] , [address] [place] [address] Cooper Shelley MD LAB_1 Performing Organization Address City/[facility]/ZIP [facility] Phon e Number [address] [address] (ABNORMAL) GLUCOSE, WHOLE BLOOD POC (07/31/2014 11:01 PM CDT) P athologist Signature Glucose, Whole 220 (H) 70 - 180 [facility] Blood mg/dl HOSPITAL Comment: Point of Care Testing RN Notified Specimen Anatomical Collection Method Collection Time Receive d Time (Source) Location / / Volume Laterality 07/31/2014 11:01 07/31/2014 PM CDT 11:04 PM CDT Cooper Shelley MD LAB_1 Performing Organization Address City/[facility]/ZIP [facility] Phon e Number [address] [address] (ABNORMAL) GLUCOSE, WHOLE BLOOD POC (07/31/2014 8:58 PM CDT) athologist Signature Glucose, Whole 201 (H) 70 - 180 [facility] Blood mg/dl HOSPITAL Comment: Point of Care Testing RN Notified Specimen Anatomical Collection Method Collection Time Receive d Time (Source) Location / / Volume Laterality 07/31/2014 8:58 PM 4 9:23 CDT PM CDT Cooper Shelley MD LAB_1 Performing Organization Address City/[facility]/ZIP Code Phon e Number [address] [address] (ABNORMAL) GLUCOSE, WHOLE BLOOD POC (07/31/2014 5:45 PM CDT) athologist Signature Glucose, Whole 192 (H) 70 - 180 [facility] Blood mg/dl HOSPITAL Comment: Point of Care Testing RN Notified Specimen Anatomical Collection Method Collection Time Receive d Time (Source) Location / / Volume Laterality 07/31/2014 5:45 PM 4 5:47 CDT PM CDT Cooper Shelley MD LAB_1 Performing Organization Address City/[facility]/ZIP [facility] Phon e Number [address] [address] GLUCOSE, WHOLE BLOOD POC (07/31/2014 1:07 PM CDT) athologist Signature Glucose, Whole 175 70 - 180 [facility] Blood mg/dl HOSPITAL Comment: Point of Care Testing RN Notified Specimen Anatomical Collection Method Collection Time Receive d Time (Source) Location / / Volume Laterality 07/31/2014 1:07 PM 4 1:09 CDT PM CDT Cooper Shelley MD LAB_1 Performing Organization Address City/[facility] Phon e Number [address] [address] [address] HEAD WITHOUT CONTRAST (07/31/2014 8:24 AM [...] range: See (NOTE) LIANNE WILLETT Comment (NOTE) [facility] The antiphospholipid antibody syndrome (APS) is [...] [employer] 2006: 4; ??295 Test performed at [employer] [facility] [address] ??[phone] Director: JUANCARLOS FINCH MD Specimen Anatomical Collection Method Collection Time Receive d Time (Source) Location / / Volume Laterality 07/31/2014 8:01 AM 4 8:02 CDT AM CDT Shin Salvador MD LAB_1 Performing Organization Address City/State/ZIP Code Phon e Number [address] [address] (ABNORMAL) BASIC METABOLIC PANEL (07/31/2014 8:01 AM [...] Est., If >60 >60 [facility] Black ml/min/1.7 [facility] 3m2 Specimen Anatomical Collection Method Collection Time Receive d Time (Source) Location / / Volume Laterality 07/31/2014 8:01 AM 4 8:02 CDT AM CDT Narrative [facility] - 07/31/2014 8:32 AM CD T Performed at [facility] , [address] [place] [address] Shin Salvador MD LAB_1 Performing Organization Address City/[facility]/ZIP Code Phon e Number [address] [address] GLUCOSE, WHOLE BLOOD POC (07/31/2014 8:00 AM CDT) P athologist Signature Glucose, Whole 160 70 - 180 [facility] Blood mg/dl HOSPITAL Comment: Point of Care Testing RN Notified Specimen Anatomical Collection Method Collection Time Receive d Time (Source) Location / / Volume Laterality 07/31/2014 8:00 AM 4 8:03 CDT AM CDT Cooper Shelley MD LAB_1 Performing Organization Address City/[facility]/ZIP [facility] Phon e Number [address] [address] (ABNORMAL) GLUCOSE, WHOLE BLOOD POC (07/30/2014 9:44 PM CDT) athologist Signature Glucose, Whole 217 (H) 70 - 180 [facility] Blood mg/dl [facility]OSPITAL Comment: Point of Care Testing RN Notified Specimen Anatomical Collection Method Collection Time Receive d Time (Source) Location / / Volume Laterality 07/30/2014 9:44 PM 4 CDT 10:08 PM CDT Cooper Shelley MD LAB_1 Performing Organization Address City/[facility]/ZIP [facility] Phon e Number [address] [address] LUPUS ANTICOAGULANT WORKUP (07/30/2014 6:32 PM CDT) [facility] gist Method Time Signature Protime 14.0 12.0 - [facility] 14.5 sec HOSPITAL INR 1.1 0.9 - 1.1 [facility] HOSPITAL PTT 26.0 24.0 - [facility] [...] PM 4 6:38 CDT PM CDT Narrative [facility] - 08/02/2014 10:55 AM C DT Performed at [facility] , [address] [place] [address] Cooper Shelley MD LAB_1 Performing Organization Address City/[facility] Health/ZIP Code Phon e Number [address] [address] GLUCOSE, WHOLE BLOOD POC (07/30/2014 5:50 PM CDT) athologist Signature Glucose, Whole 118 70 - 180 [facility] Blood mg/dl [facility] Comment: Point of Care Testing RN Notified Specimen Anatomical Collection Method Collection Time Receive d Time (Source) Location / / Volume Laterality 07/30/2014 5:50 PM 4 5:54 CDT PM CDT Cooper Shelley MD LAB_1 Performing Organization Address City/State/ZIP Code Phon e Number [address] [address] [place] VENOUS DUPLEX LOWER EXTREMITY BILATERAL (07/30/2014 [...] 1. ??Worsening of the DVT in the [facility] lower extremities. Large amount of nonocclusive [...] contrast. CONTRAST: None. SEDATION: None. COMPARISON: [facility] [place] perform ed at 6:15 AM [...] contrast. CONTRAST: None. SEDATION: None. COMPARISON: [facility] [place] [facility] [place] perform ed at 6:15 AM [...] Organization Address City/State/ZIP Code Phon e Number [facility] [address] [place] [address] [address] GLUCOSE, WHOLE BLOOD POC (07/30/2014 8:02 AM CDT) athologist Signature Glucose, Whole 94 70 - 180 [facility] Blood mg/dl [facility] Comment: Point of Care Testing No Action Required Specimen Anatomical Collection Method Collection Time Receive d Time (Source) Location / / Volume Laterality 07/30/2014 8:02 AM 4 8:16 CDT AM CDT Cooper Shelley MD LAB_1 Performing Organization Address [facility] Phon e Number [address] [address] (ABNORMAL) INR/PROTIME (07/30/2014 6:56 AM CDT) athologist Signature Protime 14.9 (H) 12.0 - 14.5 [facility] INR 1.2 (H) 0.9 - 1.1 [facility] Specimen Anatomical Collection Method Collection Time Receive d Time (Source) Location / / Volume Laterality 07/30/2014 6:56 AM 4 6:57 CDT AM CDT [facility] - 07/30/2014 7:57 AM CD T Performed at [facility] , [address] [place] [id number] Douglas Hyas PA-C LAB_1 Performing Organization Address [facility] Phon e Number [address] [address] (ABNORMAL) HEMOGRAM/PLTS (07/30/2014 6:56 AM CDT) athologist Signature WBC 11.0 4.0 - 11.0 [facility] RBC 3.87 (L) 4.5 - 5.9 [facility] Hemoglobin 11.8 (L) 13.5 - 17.5 [facility] g/dl [facility] HCT 35.6 (L) 41.0 - 53.0 [facility] MCV 92.0 80 - 100 [facility] MCH 30.5 26 - 34 pg [facility] MCHC 33.1 32 - 36 [facility] RDW 13.7 11.5 - 14.5 [facility] Platelets 177 150 - 450 [facility] MPV 10.5 9.4 - 12.4 [facility] Specimen Anatomical Collection Method Collection Time Receive d Time (Source) Location / / Volume Laterality 07/30/2014 6:56 AM 4 6:57 CDT AM CDT Narrative [facility] - 07/30/2014 7:24 AM CD T Performed at [facility] , [address] [place] [id number] Douglas Hays PA-C LAB_1 Performing Organization Address [facility] Phon e Number [address] [address] (ABNORMAL) BASIC METABOLIC PANEL (07/30/2014 6:56 AM [...] Est., If >60 >60 [facility] Black ml/min/1.7 [facility] 3m2 Specimen Anatomical Collection Method Collection Time Receive d Time (Source) Location / / Volume Laterality 07/30/2014 6:56 AM 4 6:57 CDT AM CDT [facility] - 07/30/2014 7:40 AM CD T Performed at [facility] , [address] [place] [id number] Douglas Hays PA-C LAB_1 Performing Organization Address City/[facility] Phon e Number [address] [address] [address] ANGIOGRAPHY HEAD (07/30/2014 6:27 AM CDT) [...] Cooper Shelley MD LAB_1 Performing Organization Address City/[facility]/ZIP [facility] Phon e Number [address] [address] GLUCOSE, WHOLE BLOOD POC (07/29/2014 11:57 AM CDT) athologist Signature Glucose, Whole 130 70 - 180 [facility] Blood mg/dl [facility] Comment: Point of Care Testing RN Notified Specimen Anatomical Collection Method Collection Time Receive d Time (Source) Location / / Volume Laterality 07/29/2014 11:57 07/29/2014 AM CDT 12:13 PM CDT Cooper Shelley MD LAB_1 Performing Organization Address City/State/[facility] Phon e Number [address] [address] GLUCOSE, WHOLE BLOOD POC (07/29/2014 8:19 AM CDT) athologist Signature Glucose, Whole 143 70 - 180 [facility] Blood mg/dl [facility] Comment: Point of Care Testing RN Notified Specimen Anatomical Collection Method Collection Time Receive d Time (Source) Location / / Volume Laterality 07/29/2014 8:19 AM 4 8:39 CDT AM CDT Cooper Shelley MD LAB_1 Performing Organization Address City/State/ZIP Code Phon e Number [address] [address] [address] HEAD WITHOUT CONTRAST (07/29/2014 4:30 AM [...] 10 7 - 16 [facility] (calc.) mmol/L [facility] Glucose 186 (H) 70 - 180 [facility] mg/dl [facility] Calcium 9.3 8.4 - 10.2 [facility] mg/dl [facility] BUN 10 7 - 20 [facility] mg/dl [facility] Creatinine 0.71 0.66 - [facility] 1.25 mg/dl [facility] GFR, Estimated >60 >60 [facility] ml/min/1.7 [facility] 3m2 GFR, Est., If >60 >60 [facility] Black ml/min/1.7 [facility] 3m2 Specimen Anatomical Collection Method Collection Time Receive d Time (Source) Location / / Volume Laterality 07/29/2014 4:10 AM 4 4:11 CDT AM CDT [facility] - 07/29/2014 4:26 AM CD T Performed at [facility] , [address] [place] [id number] Cooper Shelley MD LAB_1 Performing Organization Address City/State/ZIP Code Phon e Number [address] [address] (ABNORMAL) HGB A1C (07/29/2014 3:19 AM CDT) athologist Signature Hgb A1c 6.4 (H) 4.3 - 6.1 % [facility] Comment: The usual A1C goal for people with diabe jeremy, age 18-75, is <8.0%. Physicians may recommend a higher or lo wer goal for specific individuals. Specimen Anatomical Collection Method Collection Time Receive d Time (Source) Location / / Volume Laterality 07/29/2014 3:19 AM 4 3:22 CDT AM CDT [facility] - 07/29/2014 12:53 PM C DT Performed at [facility], [address] [place] [address] ??[id number] Jamaica Wei PA-C LAB_1 Performing Organization Address City/State/ZIP Code Phon e Number [address] [address] ADD ON LAB ORDERS(SPECIMEN IN LAB) (07/29/2014 3:19 AM CDT) [facility] gist Method Time Signature Add On Test Additional [facility] Ordered by Specimen Anatomical Collection Method Collection Time Receive d Time (Source) Location / / Volume Laterality 07/29/2014 3:19 AM 4 3:22 CDT AM CDT [facility] - 07/29/2014 9:01 AM CD T Performed at [facility] , [address] [place] [id number] Jamaica Wei PA-C LAB_1 Performing Organization Address City/[facility]/ZIP Code Phon e Number [address] [address] (ABNORMAL) INR/PROTIME (07/29/2014 3:19 AM CDT) athologist Signature Protime 15.2 (H) 12.0 - 14.5 [facility] INR 1.2 (H) 0.9 - 1.1 [facility] Specimen Anatomical Collection Method Collection Time Receive d Time (Source) Location / / Volume Laterality 07/29/2014 3:19 AM 4 3:22 CDT AM CDT [facility] - 07/29/2014 3:38 AM CD T Performed at [facility] , [address] [place] [id number] Cooper Shelley MD LAB_1 Performing Organization Address City/[facility] Code Phon e Number [address] [address] (ABNORMAL) Hemogram with Platelets (07/29/2014 3:19 AM CDT) P athologist Signature WBC 7.7 4.0 - 11.0 [facility] RBC 4.36 (L) 4.5 - 5.9 [facility] Hemoglobin 13.3 (L) 13.5 - 17.5 [facility] g/dl [facility]OSPITAL HCT 39.3 (L) 41.0 - 53.0 [facility] MCV 90.1 80 - 100 fl [facility] MCH 30.5 26 - 34 pg [facility] MCHC 33.8 32 - 36 [facility] g/dl HOSPITAL RDW 13.4 11.5 - 14.5 [facility]OSPITAL Platelets 173 150 - 450 [facility] MPV 11.6 9.4 - 12.4 [facility] Specimen Anatomical Collection Method Collection Time Receive d Time (Source) Location / / Volume Laterality 07/29/2014 3:19 AM 4 3:22 CDT AM CDT [facility] - 07/29/2014 3:30 AM CD T Performed at [facility] , [address] [place] [id number] Cooper Shelley MD LAB_1 Performing Organization Address City/[facility] Phon e Number [address] [address] MRSA ADMIT SCREEN (07/28/2014 10:30 PM CDT) Component Value Ref Test Analysis Performed At [facility] gist Range Method Time Signature Specimen Nose Swab [facility] Description [facility]OSPITAL Special Unspecified [facility] Requests [facility]OSPITAL PCR No MRSA DNA [facility] Detected [facility] Culture No Methicillin [facility] Resistant [facility] Staphylococcus aureus Report Status Final 07/29/2014 [facility] Specimen Anatomical Collection Method Collection Time Receive d Time (Source) Location / / Volume Laterality Nasal swab taken 07/28/2014 10:30 07/29/2 014 4:45 (situation) PM CDT AM CDT [facility] - 07/29/2014 6:40 AM CD T Performed at [facility] , [address] [place] [id number] Cooper Shelley MD LAB_1 Performing Organization Address [facility] Phon e Number [address] [address] GLUCOSE, WHOLE BLOOD POC (07/28/2014 10:21 PM CDT) athologist Signature Glucose, Whole 133 70 - 180 [facility] Blood mg/dl [facility] Comment: Point of Care Testing RN Notified Specimen Anatomical Collection Method Collection Time Receive d Time (Source) Location / / Volume Laterality 07/28/2014 10:21 07/28/2014 PM CDT 10:27 PM CDT Cooper Shelley MD LAB_1 Performing Organization Address City/[facility]/ZIP Code Phon e Number [address] [address] GLUCOSE, WHOLE BLOOD POC (07/28/2014 9:09 PM CDT) athologist Signature Glucose, Whole 122 70 - 180 [facility] Blood mg/dl [facility] Comment: Point of Care Testing RN Notified Specimen Anatomical Collection Method Collection Time Receive d Time (Source) Location / / Volume Laterality 07/28/2014 9:09 PM 4 9:15 CDT PM CDT Cooper Shelley MD LAB_1 Performing Organization Address City/[facility]/ZIP Code Phon e Number [address] [address] BB HOLD TUBE ([facility] ONLY) (07/28/2014 7:40 PM CDT) [facility] Method Time Signature BB Hold Tube Blood Bank [facility] HOSPITAL expires in 3 days Specimen Anatomical Collection Method Collection Time Receive d Time (Source) Location / / Volume Laterality 07/28/2014 7:40 PM 4 8:17 CDT PM CDT [facility] - 07/28/2014 8:19 PM CD T Performed at [facility] , [address] [place] [id number] Cooper Shelley MD LAB_1 Performing Organization Address City/[facility]/ZIP Code Phon e Number [address] [address] BB HOLD TUBE ([facility] ONLY) (07/28/2014 7:35 PM CDT) [facility] gist Method Time Signature BB Hold Tube Blood Bank [facility] save tube HOSPITAL expires in 3 days Specimen Anatomical Collection Method Collection Time Receive d Time (Source) Location / / Volume Laterality 07/28/2014 7:35 PM 4 8:18 CDT PM CDT Narrative [facility] - 07/28/2014 8:20 PM CD T Performed at [facility] , [address] [place] [id number] Cooper Shelley MD LAB_1 Performing Organization Address City/[facility]/ZIP Code Phon e Number [address] [address] GLUCOSE, WHOLE BLOOD POC (07/28/2014 6:42 PM CDT) athologist Signature Glucose, Whole 129 70 - 180 [facility] Blood mg/dl HOSPITAL Comment: Point of Care Testing No Action Required Specimen Anatomical Collection Method Collection Time Receive d Time (Source) Location / / Volume Laterality 07/28/2014 6:42 PM 4 6:50 CDT PM CDT Cooper Shelley MD LAB_1 Performing Organization Address City/[facility]/ZIP Code Phon e Number [address] [address] ABO Rh & Antibody Screen (Type & Screen) (07/28/2014 5:58 PM CDT) [facility] gist Method Time Signature Crossmatch 07/31/2014 [facility] Expires HOSPITAL ABO/RH(D) A NEGATIVE [facility] Antibody NEGATIVE [facility] Specimen Anatomical Collection Method Collection Time Receive d Time (Source) Location / / Volume Laterality 07/28/2014 5:58 PM 4 5:59 CDT PM CDT Narrative [facility] - 07/28/2014 6:54 PM CD T Performed at [facility] , [address] [place] [id number] Cooper Shelley MD LAB_1 Performing Organization Address City/[facility]/ZIP Code Phon e Number [address] [address] (ABNORMAL) aPTT (Activated Partial Thromboplastin Time) (07/28/2014 5:58 PM CDT) athologist [facility] PTT 51.2 (H) 24.0 - 37.0 [facility] Specimen Anatomical Collection Method Collection Time Receive d Time (Source) Location / / Volume Laterality 07/28/2014 5:58 PM 4 5:59 CDT PM CDT [facility] - 07/28/2014 6:30 PM CD T Performed at [facility] , [address] [place] [id number] Cooper Shelley MD LAB_1 Performing Organization Address [facility] Phon e Number [address] [address] (ABNORMAL) INR/Protime (PT/INR) (07/28/2014 5:58 PM CDT) athologist [facility] Protime 15.3 (H) 12.0 - 14.5 [facility] INR 1.2 (H) 0.9 - 1.1 [facility] Specimen Anatomical Collection Method Collection Time Receive d Time (Source) Location / / Volume Laterality 07/28/2014 5:58 PM 4 5:59 CDT PM CDT [facility] - 07/28/2014 6:30 PM CD T Performed at [facility] , [address] [place] [id number] Cooper Shelley MD LAB_1 Performing Organization Address City/[facility]/ZIP [facility] Phon e Number [address] [address] (ABNORMAL) Basic Metabolic Panel (BUN, Ca, Cl, [...] [facility] mg/dl [facility]OS[facility] Creatinine 0.71 0.66 - [facility] 1.25 mg/dl [facility]OSPITAL GFR, Estimated >60 >60 [facility] ml/min/1.7 [facility] 3m2 GFR, Est., If >60 >60 [facility] Black ml/min/1.7 [facility] 3m2 Specimen Anatomical Collection Method Collection Time Receive d Time (Source) Location / / Volume Laterality 07/28/2014 5:58 PM 4 5:59 CDT PM CDT [facility] - 07/28/2014 6:30 PM CD T Performed at [facility] , [address] [place] [id number] Cooper Shelley MD LAB_1 Performing Organization Address City/State/ZIP Code Phon e Number [id number] [address] (ABNORMAL) Hemogram with Platelets (07/28/2014 5:58 PM CDT) athologist Signature WBC 7.0 4.0 - 11.0 [facility] RBC 4.27 (L) 4.5 - 5.9 [facility] Hemoglobin 13.0 (L) 13.5 - 17.5 [facility] g/dl [facility] HCT 38.6 (L) 41.0 - 53.0 [facility] MCV 90.4 80 - 100 [facility] MCH 30.4 26 - 34 pg [facility] MCHC 33.7 32 - 36 [facility] g/dl HOSPITAL RDW 13.3 11.5 - 14.5 [facility] Platelets 173 150 - 450 [facility] MPV 10.7 9.4 - 12.4 [facility] Specimen Anatomical Collection Method Collection Time Receive d Time (Source) Location / / Volume Laterality 07/28/2014 5:58 PM 4 5:59 CDT PM CDT [facility] - 07/28/2014 6:21 PM CD T Performed at [facility] , [address] [place] [phone] Cooper Shelley MD LAB_1 Performing Organization Address City/State/ZIP Code Phon e Number [address] [address] EKG IP (07/28/2014 12:00 AM CDT) Specimen [...] Forbes RN - 08/02/2014 7:27 PM CDT [facility] HOSPITAL Discharge Note - Nursing Admission [...] of all instructions. Left floor with paper Flor[place] p rescription, this wasn't filled by [facility] pharmacy. Will take and fill at [facility]. All medical devices (telemetry/IV/etc) unless otherwise ordered, have been removed and stored: Yes Report Completed by: Aidee Parks RN --- End of Report --- Plan of Care - Priti Hickey RN - 08/02/2014 4:34 PM CDT Problem: General Plan of Care Goal: Discharge Needs Assessment 08/02/14 1627 Care Coordination Care Team Actions Needed MD medical clearance;PT/OT consult;patient requires further observation [facility] Plan of Care Note Assessment: Discharge planning [...] Forbes RN - 08/02/2014 3:48 PM CDT [facility]. MD Notified Note Name of MD notified: Dr. Kathleen Time of MD notification: 1500 hours and 49 minutes Reason: BP @ 1444 163/98, hydralazine 25 mg given. Now BP 162/94. Ok to d/c Response: Yes ok to d/c follow-up with primary care doctor. Aidee Parks RN --- End of Report --- Plan of Care - Luke Siegel - 08/02/2014 12:22 PM CDT [facility] Complementary Care Therapy Note Complementary Care Therapy [...] Report Completed by: RICK Dunlap Pager # [phone] Thank you for referring this pt to [facility]. --- End of Report --- Plan of Care - Stella Parra RN - 08/02/2014 7:54 AM CDT Problem: General Plan of Care Goal: Plan of Care Review The patient and/or their provider service representative will communicate an understanding of their [...] Obstetrics) ??? Potential Problems (Perioperative Period) Ongoing [facility] Plan of Care Note Assessment: pain, activity. Plan: will continue to assess and medicate as needed for pain. Will encourage increase activity. Subjective: rates pain on the back 3/10, tolerable relief stated with [place]. Per patient tired and refused to get up in chair. Objective: patient is alert and oriented x4. Adequate pain relief with Flor[place]. Dangle at side of bed for dinner. De La Cruz patent. 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 Completed 1L of IVF. Had 75% for dinner. --- End of Report --- Plan of Care - Mónica Saldana RN - 08/01/2014 3:03 PM CDT Problem: General Plan of Care Goal: Plan of Care Review The patient and/or their provider service representative will communicate an understanding of their plan of care. Outcome: Ongoing [facility] Plan of Care Note Assessment: Orthostatic bp [...] Saldana RN - 08/01/2014 10:52 AM CDT [facility]. MD Notified Note Name of MD notified: Ehren Time of MD notification: 1000 hours and 52 minutes Reason: BP 71/43 sitting in a chair. HR 96. Pls advise. Response: Mónica Saldana RN --- End of Report --- Plan of Care - Cortney Montez RN - 08/01/2014 8:07 AM CDT Problem: Perioperative Period (Adult, Obstetrics) Intervention: Pressure Reduction Techniques [facility] Plan of Care Note Assessment: Pain Plan: [...] Saldana RN - 08/01/2014 8:07 AM CDT [facility]. MD Notified Note Name of MD [...] Obstetrics) ??? Potential Problems (Perioperative Period) Ongoing [facility] Plan of Care Note Assessment: Comfort. Plan: [...] (reference Perioperative Period (Adult, Obstetrics) [facility]) 07/31/14 4419 Goal/Outcome Evaluation Problems Assessed (Perioperative Period) situational response;acute pain;other (see comments) [facility] Plan of Care Note Assessment: Neuro [...] of Care Review The patient and/or their provider service representative will communicate an understanding of their [...] Nieto RN - 07/30/2014 7:08 PM CDT [facility] Rapid Response Team Note Time, Date & Location Date of Call: 07/30/14 Person Requesting Team: RN Location of Call : [facility] Time Called: 1314 Time Team Arrived: 1316 [...] Garcia RN - 07/30/2014 3:11 PM CDT [facility] Plan of Care Note Assessment: Neuro Status [...] this shift at approximately 1305 this shift, QUOTER called with MD presence, staff came and [...] have resided at approximately 1335, see MD QUOTER note, pt has incision to top of head that is stapled, old drainage to note, drain was D/C'd this shift, at approximately 1200, just prior to QUOTER, pt has adequate amounts of urine via de la cruz, colostomy has small amount of soft stool to note, pt has been up and into the WC with assist of 2 and use of charis, to lerates well. --- End of Report --- Plan of Care - Luke Siegel - 07/30/2014 1:21 PM CDT [facility] Complementary Care Therapy Missed Visit Note [facility] attempted to see patient today for Massage Therapy. Unable to see patient for this reason: QUOTER activated at 1:21pm. Will attempt again as soon as possible. Time: 4:14 PM Date: 07/30/2014 Report Completed by: Luke Siegel [facility] Pager # [phone] Thank you for referring this pt to [facility]. --- End of Report --- Plan of Care - Karo Murray RN - 07/30/2014 7:51 AM CDT Problem: General Plan of Care Goal: Plan of Care Review The patient and/or their provider service representative will communicate an understanding of their plan of care. Outcome: Ongoing 07/30/14 0750 Coping/Psychosocial Response Interventions Plan of Care Reviewed with patient;spouse Plan of Care Progress progress toward functional goals is gradual Plan of Care - Aidee Forbes RN - 07/29/2014 11:10 PM CDT [facility] Nursing Transfer Note (To/From ICU / Progressive [...] of transfer: A&0 X 4. Neuro/cms intact. Budget Director strong BUE. Denies pain or headache. at [...] Period (Adult, Obstetrics) Intervention: Pressure Reduction Devices [facility] Plan of Care Note Assessment: skin integrity Plan: turn patient to preserve skin Subjective: pt awake and oriented. Makes needs for turns known. in room most of day assisting in cares. Multiple pillows used for elevation of extremities. Objective: skin intact and patient comfortable. --- End of Report --- Plan of Care - Mitch Kirkland - 07/29/2014 5:17 PM CDT HOSPITAL MANAGING MEMBER NOTE - The pt received Sacrament of the Sick (anointing) today. Fr. Mitch Kirkland [facility] Plan of Care - Archana Pace - 07/29/2014 10:47 AM CDT [facility] Cost Accounting Analyst Department Note Technician Anatomic Pathology Notes: Initial visit with Jeff and family present at the bedside. Jeff shares he is doing well after surgery and hopes to transfer out of SICU today. Jeff & family are from [place] and Jeff is involved in his parish there. He would appreciate having the hospital hoof and shoe inspector come by to provide the sacrament of the sick. I informed him the hospital hoof and shoe inspector is not available today but may be in the hospital this evening, if not then definitely tomorrow morning. Interventions Offered: Introduction, supportive listening, blessing, update pt/family on hoof and shoe inspector availability. Plan: I have left a message for the hospital hoof and shoe inspector to see pt tonight (if the hoof and shoe inspector is in-house) or tomorrow for sure. Cost Accounting Analyst remains available to pt and/or family for spiritual and emotional support asneeded or requested. Report Completed by: Archana Pace M.Div, [facility], Staff Technician Anatomic Pathology --- End of Report --- Plan of Care - Jodi Ordonez RN - 07/29/2014 7:38 AM CDT Problem: General Plan of Care Goal: Plan of Care Review The patient and/or their provider service representative will communicate an understanding of their [...] of Care Review The patient and/or their provider service representative will communicate an understanding of their [...]
--- OUTSIDE RECORDS SUMMARY | 2022-07-04 15:08 | XMS_ITS | Encounter Summary ---
:1945 Author Organization [facility] Address [address] [address] Care Team Providers Name Role Phone Unavailable Primary Care Provider Unavailable Encounter Details Date Type Department Care Team Description 07/27/2014 Orders Only External to Alfonso Neff MD [address] [place] [address] [phone] (Wo rk) Social History Tobacco [...]
--- OUTSIDE RECORDS SUMMARY | 2022-07-04 15:08 | XMS_ITS | Encounter Summary ---
:1945 Author Organization [facility] Address [address], [place] [address] Care Team Providers Name Role Phone Unavailable Primary Care Provider Unavailable Reason for Visit Reason Onset Date Comments RESULTS, TEST 06/21/2014 Encounter Details Date Type Department Care Team Description 06/21/2014 Telephone Specialty Center 401 Garry Neff MD RESULTS, TEST NeuroSurgery [address] [place] [address] [place] [address] [phone] Social History Tobacco Use Types Packs/Day Years [...]
--- OUTSIDE RECORDS SUMMARY | 2022-07-04 15:08 | XMS_ITS | Encounter Summary ---
:1945 Author Organization [facility] Address [address] [place] [address] Care Team Providers Name Role Phone Unavailable Primary Care Provider Unavailable Encounter Details Date Type Department Care Team Description 03/23/2014 Orders Only External to Alfonso Neff MD [address] [place] [address] [phone] (Wo rk) Social History Tobacco [...]
--- OUTSIDE RECORDS SUMMARY | 2022-07-04 15:08 | XMS_ITS | Encounter Summary ---
:1945 Author Organization [employer] Address [address] [address] Care Team Providers Name Role Phone Unavailable Primary Care Provider Unavailable Reason for Visit Reason Onset Date Comments Other 01/27/2014 Encounter Details Date Type Department Care Team Description 01/27/2014 Telephone Specialty Center 401 Zelalem Cohen, DO Other Interventional Pain Management [address] [place] [address] [place] [address] [phone] Social History Tobacco Use Types Packs/Day Years [...] Oswald is calling from Greg ORNELAS in [facility] stating he would like to speak to Dr Cohen regarding patient. documented in this encounter Plan of Treatment Not on filedocumented as of this encounter Visit Diagnoses Not on filedocumented in this encounter
--- OUTSIDE RECORDS SUMMARY | 2022-07-04 15:08 | XMS_ITS | Encounter Summary ---
:1945 Author Organization [facility] [address], [place] [address] Care Team Providers Name Role Phone Franklin Squires MD Primary Care Provider Encounter Details Date Type Department Care Team Description 02/05/2014 Correspondence [facility] Trudi Raymundo, PT LETTER OF MEDICAL Physical Therapy [address] NECESSITY FOR A [address] [place], [place] [address] [phone] Social History Tobacco Use Types Packs/Day Years [...] on filedocumented in this encounter Care Teams Associate Director Finance Relationship Specialty Start Date End Date Franklin Squires MD PCP - General Family Practice 03/08/[address] [place] [address] [facility] [place] [address] documented as of this encounter
--- OUTSIDE RECORDS SUMMARY | 2022-07-04 15:08 | XMS_ITS | Encounter Summary ---
:1945 Author Organization [employer] Address [address] [address] Care Team Providers Name Role Phone Unavailable Primary Care Provider Unavailable Reason for Visit Reason Comments Revisit back and anal pain Encounter Details Date Type Department Care Team Description 01/26/2014 Office Visit Specialty Center 401 Zelalem Cohen feliberto cord injury Interventional Pain L, DO (Primary Dx) Management [address] [place] [address] [phone] Social History Tobacco Use Types Packs/Day Years [...] Future, will start neurontin Dr. Benito Cohen [phone] documented in this encounter Progress Notes Zelalem [...] change in cymbalta, refilled 5. Talked with [facility] re: compounded cream, no longer being [...]
--- OUTSIDE RECORDS SUMMARY | 2022-07-04 15:08 | XMS_ITS | Encounter Summary ---
:1945 Author Organization [facility] Address [address] [address] Care Team Providers Name Role Phone Franklin Squires MD Primary Care Provider Encounter Details Date Type Department Care Team Description 03/11/2014 Correspondence Specialty Center 401 Zelalem Cohen EMPI Interventional Pain DO Management [address] [place] [address] [phone] (Wo rk) Social History Tobacco Use Types [...] on filedocumented in this encounter Care Teams Battery Container Tester Relationship Specialty Start Date End Date Franklin Squires MD PCP - General Family Practice 03/08/[address] [place] [address] [place] [address] documented as of this encounter
--- OUTSIDE RECORDS SUMMARY | 2022-07-04 15:08 | XMS_ITS | Encounter Summary ---
:1945 Author Organization [facility] [address], [place] [address] Care Team Providers Name Role Phone Unavailable Primary Care Provider Unavailable Encounter Details Date Type Department Care Team Description 05/04/2014 Office Visit [facility] May Randle MD [address] [place], [place] [phone] Osteoporosis (Primary Dx); Physical Therapy Trudi Raymundo, PT [address] [place] [address] Paraplegia [address] [place] [address] Social History Tobacco Use Types Packs/Day Years Used Date Smoking Tobacco: Never Smokeless Tobacco: Never Alcohol Use Standard Drinks/Week Comments No 0 (1 standard drink = 0.6 oz pure alcoho l) Sex Assigned at Date Recorded Male 08/06/2021 5:59 PM CDT documented as of this encounter Progress Notes Trudi Raymundo, PT - 05/04/2014 1:13 PM CDT OUTPATIENT PHYSICAL THERAPY: SEATING/MOBILITY EVALUATION Jeff Cullen [id number] 1945 Payor: MEDICARE Plan: MEDICARE [id number] Product Type: Medicare Referring Provider: May Randle [...] years and initially had his rehabilitation at [facility]. At that point he was [...] because his back was too sore to industrial photographer it. It should be noted that this [...] Cardio-Respiratory Status: intact CURRENT SEATING/MOBILITY: (Type - Supplier Specialist-Model) Chair: Hoveround, age: 2006 w/c Cushion: [...] lift. Driving requirements: patient is a licensed driver wheelchair Employment/Educational requirements: is on disability Hobbies/Interests: AG&P working Is going to take a PinchPointving class. OBJECTIVE: Estimated body mass index is [...] Hours spent sitting in w/c each day: director multimedia wheelchair user. PATIENTS GOALS: Seeking power wheelchair [...] his osteoporosis (fracture prevention). He is a director multimedia wheelchair user and is not ambulatory. He [...] with your signature, to our clinic at [phone]. Your signature is required to continue treatment [...]
--- OUTSIDE RECORDS SUMMARY | 2022-07-04 15:08 | XMS_ITS | Encounter Summary ---
:1945 Author Organization [facility] Address [address], [place] [address] Care Team Providers Name Role Phone Unavailable Primary Care Provider Unavailable Reason for Visit Reason Onset Date Comments Refill 04/06/2014 baclofen Encounter Details Date Type Department Care Team Description 04/06/2014 Telephone Specialty Center 401 Zelalem Cohen , Refill (baclofen) Interventional Pain DO Management [address] [place] [address] [phone] (Wo rk) Social History Tobacco Use Types Packs/Day Years Used Date Smoking Tobacco: Never Smokeless Tobacco: Never Alcohol Use Standard Drinks/Week Comments No 0 (1 standard drink = 0.6 oz pure alcoho l) Sex Assigned at Date Recorded Male 08/06/2021 5:59 PM CDT documented as of this encounter Nursing Notes Loree Garcia RN - 04/06/2014 2:03 PM CDT His [...]
--- OUTSIDE RECORDS SUMMARY | 2022-07-04 15:08 | XMS_ITS | Encounter Summary ---
:1945 Author Organization [facility] Address [address] [address] Care Team Providers Name Role Phone Franklin Squires MD Primary Care Provider Encounter Details Date Type Department Care Team Description 06/11/2014 Correspondence Specialty Center May Randle, [facility] 401 Physical Medicin e [address] [place] [address] [place], [place] [phone] (Wo rk) Social History Tobacco Use Types [...] on filedocumented in this encounter Care Teams Drinking Water Technician Relationship Specialty Start Date End Date Franklin Squires MD PCP - General Family Practice 03/08/[address] [place], [place] [address] [address] documented as of this encounter
--- OUTSIDE RECORDS SUMMARY | 2022-07-04 15:08 | XMS_ITS | Encounter Summary ---
:1945 Author Organization [facility] Address [address] [address] Care Team Providers Name Role Phone Unavailable Primary Care Provider Unavailable Reason for Visit Procedure/Equipment (Routine) - Incomplete Specialty Diagnoses / Procedures Referred By Contact Refer red To Contact Procedures Jodi Aguila PA-C [place] BONE IMAGING (SPECT) [address] [place] [address] Referral ID Status Reason Start Date Expiration Date Visits V isits Requested Authorized [id number] Incomplete 06/07/2014 6 6 Encounter Details Date Type Department Care Team Description 06/11/2014 Imaging [facility] Jodi Aguila PA-C 640 [facility] [address] [place], [place] [address] [place] [address] [phone] (Wo rk) Social History Tobacco Use Types [...]
--- OUTSIDE RECORDS SUMMARY | 2022-07-04 15:08 | XMS_ITS | Encounter Summary ---
:1945 Author Organization [employer] Address [address], [place] [address] Care Team Providers Name Role Phone Unavailable Primary Care Provider Unavailable Reason for Visit Reason Onset Date Comments RESULTS, TEST 06/16/2014 Encounter Details Date Type Department Care Team Description 06/16/2014 Telephone Specialty Center 401 Zelalem Cohen, DO RESULTS, TEST NeuroSurgery [address] [place] [address] [place] [address] [phone] Social History Tobacco Use Types Packs/Day Years [...]
--- OUTSIDE RECORDS SUMMARY | 2022-07-04 15:08 | XMS_ITS | Encounter Summary ---
:1945 Author Organization [employer] Address [address] [address] Care Team Providers Name Role Phone Unavailable Primary Care Provider Unavailable Encounter Details Date Type Department Care Team Description 07/14/2014 Telephone Specialty Center 401 Jodi Aguila PA-C NeuroSurgery [address] [place] [address]. [place] [address] [place] [address] [phone] Social History Tobacco Use Types Packs/Day Years Used Date Smoking Tobacco: Never Smokeless Tobacco: Never Alcohol Use Standard Drinks/Week Comments No 0 (1 standard drink = 0.6 oz pure alcoho l) Sex Assigned at Date Recorded Male 08/06/2021 5:59 PM CDT documented as of this encounter Nursing Notes Selene Johnson RN - 07/14/2014 12:53 PM CDT Order placed and faxed to [facility] in [place]. Patient notified that he will await a call from [facility] return call. Selene Johnson RN 07/14/2014, [...] and perc rhizolysis with Oswald Wall at [facility]. Informed he will need to go offcoumadin per [facility]'s protocol. Please assist with entering order and coordinating. Instructed to call with response. Lindy and Jeff in agreement to plan. Jodi Smith PA-C documented in this encounter Plan of Treatment Not on filedocumented as of this encounter Visit Diagnoses Diagnosis Back pain - Primary Backache, unspecified documented in this encounter
--- OUTSIDE RECORDS SUMMARY | 2022-07-04 15:08 | XMS_ITS | Encounter Summary ---
:1945 Author Organization [facility] Address [address] [address] Care Team Providers Name Role Phone Unavailable Primary Care Provider Unavailable Reason for Visit Reason Onset Date Comments Refill 06/02/2014 gabapentin Encounter Details Date Type Department Care Team Description 06/02/2014 Telephone Specialty Center 401 Zelalem Cohen , Refill (gabapentin) Interventional Pain DO Management [address] [place] [address] [phone] Social History Tobacco Use Types Packs/Day Years [...] change in cymbalta, refilled 5. Talked with [facility] re: compounded cream, no longer being [...]
--- OUTSIDE RECORDS SUMMARY | 2022-07-04 15:08 | XMS_ITS | Encounter Summary ---
:1945 Author Organization [facility] Address [address] [place] [address] Care Team Providers Name Role Phone Unavailable Primary Care Provider Unavailable Encounter Details Date Type Department Care Team Description 05/06/2014 Orders Only External to Alfonso Neff MD [address] [place] [phone] (Wo rk) Social History Tobacco [...]
--- OUTSIDE RECORDS SUMMARY | 2022-07-04 15:08 | XMS_ITS | Encounter Summary ---
:1945 Author Organization [employer] Address [address] [address] Care Team Providers Name Role Phone Unavailable Primary Care Provider Unavailable Reason for Referral Consult/Transfer Care (Routine) - Incomplete Specialty Diagnoses / Procedures Referred By Contact Refer red To Contact May Randle MD [address] [place] [address] Referral ID Status Reason Start Date Expiration Date Visits V isits Requested Authorized [id number] Incomplete 05/20/2014 1 1 Scheduling Instructions Your provider has recommended an appoint ment with a [facility] Physical Therapist. Please stop at the clinic check out desk for assistance with scheduling or please choose from one of the convenient locati ons to call and schedule your PT appointment: [facility] Outpatient PT at [facility] clinic [phone], [facility] Outpatient PT at [address] [place] [address] , [facility] Outpat ient PT at [facility] Rehab [facility] [phone]. Encounter Details Date Type Department Care Team Description 05/20/2014 Orders Only Specialty Center 401 May Randle MD Physical Medicine 295 [facility] 401 [facility] [place] [address] [place] [address] [phone] Social History Tobacco Use Types Packs/Day Years Used Date Smoking Tobacco: Never Smokeless Tobacco: Never Alcohol Use Standard Drinks/Week Comments No 0 (1 standard drink = 0.6 oz pure alcoho l) Sex Assigned at Date Recorded Male 08/06/2021 5:59 PM CDT documented as of this encounter Plan of Treatment Scheduled Referrals Name Type Priority Associated Diagnoses Order S [facility] PHYSICAL THERAPY Referral Routine Ordered: documented as of this encounter Visit Diagnoses Not on filedocumented in this encounter
--- OUTSIDE RECORDS SUMMARY | 2022-07-04 15:09 | XMS_ITS | Encounter Summary ---
:1945 Author Organization [facility] [address] [address] Care Team Providers Name Role Phone Franklin Squires MD Primary Care Provider Encounter Details Date Type Department Care Team Description 10/26/2013 Correspondence [facility] Trudi Raymundo, PT LETTER OF MEDICAL Physical Therapy [address] NECESSITY [address] [place] [phone] Social History Tobacco Use Types Packs/Day Years Used Date Smoking Tobacco: Never Smokeless Tobacco: Never Alcohol Use Standard Drinks/Week Comments No 0 (1 standard drink = 0.6 oz pure alcoho l) Sex Assigned at Date Recorded Male 08/06/2021 5:59 PM CDT documented as of this encounter Progress Notes Trudi Raymundo PT - 10/26/2013 12:00 AM CST SE COLLECTOR SUPERVISOR documented in this encounter Plan of Treatment Not on filedocumented as of this encounter Visit Diagnoses Not on filedocumented in this encounter Care Teams Painting Machine Operator Relationship Specialty Start Date End Date Franklin Squires MD PCP - General Family Practice 03/08/[address] [place] [address] [place] [address] documented as of this encounter
--- OUTSIDE RECORDS SUMMARY | 2022-07-04 15:09 | XMS_ITS | Encounter Summary ---
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 [place] [address] [place], [place] [phone] (Wo rk) Social History Tobacco Use Types [...] site documented in this encounter Care Teams Locomotive Engineer Diesel Relationship Specialty Start Date End Date Garry Neff MD PCP - General Neurosurgery 04/24/12 04/14/[address] [place] [address] documented as of this encounter
--- OUTSIDE RECORDS SUMMARY | 2022-07-04 15:09 | XMS_ITS | Encounter Summary ---
:1945 Author Organization [email or web address] Address [address] [place] [address] Care Team Providers Name Role Phone Provider, Obtain Primary Care Provider Unavailable Encounter Details Date Type Department Care Team Description 04/20/2013 Office Visit Specialty Center 401 Zelalem Calles ack pain (Primary Interventional Pain L, DO Dx) Management [address] [place] [phone] Social History Tobacco Use Types Packs/Day Years [...] unspecified documented in this encounter Care Teams Entry Level Electrical Engineer Relationship Specialty Start Date End Date Provider, Obtain PCP - General 04/15/13 09/03/13 documented as of this encounter
--- OUTSIDE RECORDS SUMMARY | 2022-07-04 15:09 | XMS_ITS | Encounter Summary ---
:1945 Author Organization [facility] Address [address] [address] Care Team Providers Name Role Phone Franklin Squires MD Primary Care Provider Encounter Details Date Type Department Care Team Description 07/23/2013 Correspondence Specialty Center 401 Zelalem Cohen EXPRESS SCRIPT Interventional Pain DO Management [address] [place] [phone] Social History Tobacco Use Types Packs/Day Years Used Date Smoking Tobacco: Never Smokeless Tobacco: Never Alcohol Use Standard Drinks/Week Comments No 0 (1 standard drink = 0.6 oz pure alcoho l) Sex Assigned at Date Recorded Male 08/06/2021 5:59 PM CDT documented as of this encounter Progress Notes Zelalem Cohen MD - 07/23/2013 12:00 AM CDT ICE EDUCATOR documented in this encounter Plan of Treatment Not on filedocumented as of this encounter Visit Diagnoses Not on filedocumented in this encounter Care Teams Upper Leather Sorter Relationship Specialty Start Date End Date Franklin Squires MD PCP - General Family Practice 03/08/16 [address] [facility] [place] [address] documented as of this encounter
--- OUTSIDE RECORDS SUMMARY | 2022-07-04 15:09 | XMS_ITS | Encounter Summary ---
:1945 Author Organization [facility] Address [address], [place] [address] Care Team Providers Name Role Phone Franklin Squires MD Primary Care Provider Encounter Details Date Type Department Care Team Description 04/20/2013 Correspondence [facility] Rad[facility] Radiology, MRI SAFETY SHEET 640 [facility] [place] [address] Social History Tobacco Use Types Packs/Day Years [...] on filedocumented in this encounter Care Teams Fabric Worker Leader Relationship Specialty Start Date End Date Franklin Squires MD PCP - General Family Practice 03/08/16 100 [facility] [place] [address] documented as of this encounter
--- OUTSIDE RECORDS SUMMARY | 2022-07-04 15:09 | XMS_ITS | Encounter Summary ---
:1945 Author Organization [facility] Address [address] [place] [address] Care Team Providers Name Role Phone Garry Neff MD Primary Care Provider Reason for Visit Reason Comments Revisit back pain Encounter Details Date Type Department Care Team Description 01/15/2013 Office Visit Specialty Center 401 Zelalem Cohen nal pain (Primary Dx); Interventional Pain L, DO Back pain Management [address] [place] [phone] Social History Tobacco Use Types Packs/Day Years Used Date Smoking Tobacco: Never Smokeless Tobacco: Never Alcohol Use Standard Drinks/Week Comments No 0 (1 standard drink = 0.6 oz pure alcoho l) Sex Assigned at Date Recorded Male 08/06/2021 5:59 PM CDT documented as of this encounter Last Filed Vital Signs Vital Sign Reading Time Taken Comments Blood Pressure 126/78 01/15/2013 11:12 AM AMPHIBIAN CREWMEMBER Pulse 85 01/15/2013 11:12 AM AMPHIBIAN CREWMEMBER Temperature - - Respiratory Rate - - [...] as needed Zelalem Cohen, 01/15/2013, 12:58 PM IBIAN CREWMEMBER documented in this encounter Plan of Treatment Not on filedocumented as of this encounter Visit Diagnoses Diagnosis Anal pain - Primary Anal or rectal pain Back pain Backache, unspecified documented in this encounter Care Teams Care Giver Relationship Specialty Start Date End Date Garry Neff MD PCP - General Neurosurgery 04/24/12 04/14/13 [address] [place] [address] documented as of this encounter
--- OUTSIDE RECORDS SUMMARY | 2022-07-04 15:09 | XMS_ITS | Encounter Summary ---
:1945 Author Organization [facility] Address [address] [place] [address] Care Team Providers Name Role Phone Provider, [...] filedocumented in this encounter Care Teams Chief Psychologist Relationship Specialty Start Date End Date Provider, Obtain PCP - General 04/15/13 09/03/13 documented as of this encounter
--- OUTSIDE RECORDS SUMMARY | 2022-07-04 15:09 | XMS_ITS | Encounter Summary ---
:1945 Author Organization [facility] Address [address] [address] Care Team Providers Name Role Phone Franklin [...] on filedocumented in this encounter Care Teams Shearing Shed Hand Relationship Specialty Start Date End Date Franklin Squires MD PCP - General Family Practice 03/08/[address] [place] [address] [place] [address] documented as of this encounter
--- OUTSIDE RECORDS SUMMARY | 2022-07-04 15:09 | XMS_ITS | Encounter Summary ---
:1945 Author Organization [facility] Address [address], [place] [address] Care Team Providers Name Role Phone Unavailable Primary Care Provider Unavailable Reason for Visit Procedure/Equipment (Routine) - Closed Specialty Diagnoses / Procedures Referred By Contact Refer red To Contact Procedures Garry Neff MD MR THORACIC SPINE [address] WITH/WITHOUT CONTRAST [place] [address] Referral ID Status Reason Start Date Expiration Date Visits Requ ested Visits Authorized [id number] Closed 04/20/2013 1 1 Encounter Details Date Type Department Care Team Description 12/16/2013 Imaging [facility] Specialty Alfonso Neff, Screening for Center MRI nephropathy (Primary [address] Dx) [place] [address] [place] [address] [phone] (Wo rk) Social History Tobacco Use Types [...] Screening for Re sults for this POC FINE ARTS TEACHER nephropathy procedure are i n the results section. MR THORACIC SPINE Routine 12/16/2013 1:10 PM Resu lts for this W/WO IV CONT FINE ARTS TEACHER procedure are i n the results section. documented in this encounter Results CREATININE/GFR, WB POC (12/16/2013 2:04 PM FINE ARTS TEACHER) P athologist Signature Creat Whole 1.0 0.66 - [facility] Blood 1.25 mg/dl LABORATORIES GFR, Estimated >60.0 >60 [facility] ml/min/1.7 LABORATORIES 3m2 GFR, Est., If >60.0 >60 [facility] Black ml/min/1.7 LABORATORIES 3m2 Specimen Anatomical Collection Method Collection Time Receive d Time (Source) Location / / Volume Laterality 12/16/2013 2:04 PM 4 2:51 FINE ARTS TEACHER PM FINE ARTS TEACHER Narrative [facility] - 12/16/2013 4:[address] Performed at [address] [facility], [address] [place] [address] Barb Shelley MD LAB_1 Performing Organization Address City/State/ZIP Code Phon e Number [facility] [phone] MR THORACIC SPINE WITH/WITHOUT CONTRAST (12/16/2013 1:10 PM FINE ARTS TEACHER) Anatomical Region Laterality Modality Spine, T-Spine, L-Spine, C-Spine, Skeletal Magnetic Resonance Specimen (Source) Anatomical Collection Method Collection Time Re ceived Time Location / / Volume Laterality 12/16/2013 1:21 PM FINE ARTS TEACHER Narrative 12/16/2013 3:08 PM FINE ARTS TEACHER [facility] MRI THORACIC SPINE WITHOUT [...] note might be different from the original. [facility] MRI THORACIC SPINE WITHOUT AND [...]
--- OUTSIDE RECORDS SUMMARY | 2022-07-04 15:09 | XMS_ITS | Encounter Summary ---
:1945 Author Organization [facility] Address [address] [address] Care Team Providers Name Role Phone Garry Neff MD Primary Care Provider Reason for Visit Reason Onset Date Comments Medication Questions 01/21/2013 Encounter Details Date Type Department Care Team Description 01/21/2013 Telephone Specialty Center [address] edication Questions Interventional Pain L, DO Management [address] [place] [address] [phone] Social History Tobacco Use Types Packs/Day Years Used Date Smoking Tobacco: Never Smokeless Tobacco: Never Alcohol Use Standard Drinks/Week Comments No 0 (1 standard drink = 0.6 oz pure alcoho l) Sex Assigned at Date Recorded Male 08/06/2021 5:59 PM CDT documented as of this encounter Nursing Notes Mi Osborne RN - 01/22/2013 2:28 PM CDT states that [facility] does not need any further information or changes with the medications listed below. appreciative of clinic's help. Mi Osborne RN 01/22/2013, 2:28 PM Mi Osborne RN - 01/22/2013 1:02 PM CDT Old refill requests received from [facility] for baclofen, tizanidine, and Cymbalta. Rxs were [...] baclofen (AKA LIORESAL) 20 MG tablet because [facility] needs to confirm the dosage with the provider. Please advise. Number for the Pharmacist at [facility]: [phone] ext. [phone] Heather is requesting the provider confirm the dosage of both Cymbolta and Baclofen. Thanks, JBJ documented in this encounter Plan of Treatment Not on filedocumented as of this encounter Visit Diagnoses Not on filedocumented in this encounter Care Teams Sand Mixer Machine Relationship Specialty Start Date End Date Garry Neff MD PCP - General Neurosurgery 04/24/12 04/14/13 [place] [address] documented as of this encounter
--- OUTSIDE RECORDS SUMMARY | 2022-07-04 15:09 | XMS_ITS | Encounter Summary ---
:1945 Author Organization [facility] Address [address], [place] [address] Care Team Providers Name Role Phone Garry Neff MD Primary Care Provider Encounter Details Date Type Department Care Team Description 11/13/2012 [facility] Special[facility] Kaleigh Grewal , Screening for Center MRI SCHOOL CHILDCARE ATTENDANT, CHILD ADVOCATE nephropathy (Primary [address] [place]x) [place] [address] [place], [place] [phone] (Wo rk) Social History Tobacco Use Types [...] Screening for Re sults for this POC ROTARY FURNACE TENDER nephropathy procedure are i n the results section. MR THORACIC SPINE Routine 11/13/2012 12:08 PM Res ults for this W/WO IV CONT ROTARY FURNACE TENDER procedure are i n the results section. documented in this encounter Results CREATININE/GFR, WB POC (11/13/2012 2:03 PM ROTARY FURNACE TENDER) P athologist Signature Creat Whole 0.8 0.66 - [facility] Blood 1.25 mg/dl GFR, Estimated >60.0 >60 [facility] ml/min/1.7 3m2 GFR, Est., If >60.0 >60 [facility] Black ml/min/1.7 3m2 Specimen Anatomical Collection Method Collection Time Receive d Time (Source) Location / / Volume Laterality 11/13/2012 2:03 PM 3 2:26 ROTARY FURNACE TENDER PM ROTARY FURNACE TENDER Birgit Melton JAMILAH LAB_1 Performing Organization Address City/State/ZIP Code Phon e Number [facility] [phone] [facility] [address] [address] MR THORACIC SPINE WITH/WITHOUT CONTRAST (11/13/2012 12:08 PM ROTARY FURNACE TENDER) Anatomical Region Laterality Modality Spine, T-Spine, L-Spine, C-Spine, Skeletal Magnetic Resonance Specimen (Source) Anatomical Collection Method Collection Time Re ceived Time Location / / Volume Laterality 11/13/2012 12:08 PM ROTARY FURNACE TENDER Narrative 11/14/2012 10:35 AM ROTARY FURNACE TENDER [facility] THORACIC SPINE MRI 11/13/2012 INDICATION: Thoracic [...] note might be different from the original. [facility] THORACIC SPINE MRI 11/13/2012 INDICATION: Thoracic [...] Primary documented in this encounter Care Teams Examining Chair Assembler Relationship Specialty Start Date End Date Garry Neff MD PCP - General Neurosurgery 04/24/12 04/14/13 [place] [address] documented as of this encounter
--- OUTSIDE RECORDS SUMMARY | 2022-07-04 15:09 | XMS_ITS | Encounter Summary ---
:1945 Author Organization [facility] Address [address] [address] Care Team Providers Name Role Phone Franklin Squires MD Primary Care Provider Encounter Details Date Type Department Care Team Description 11/13/2012 [facility] Radiology, MRI SAFETY SHEET [address] [facility] [place] [address] Social History Tobacco Use Types Packs/Day Years Used Date Smoking Tobacco: Never Smokeless Tobacco: Never Alcohol Use Standard Drinks/Week Comments No 0 (1 standard drink = 0.6 oz pure alcoho l) Sex Assigned at Date Recorded Male 08/06/2021 5:59 PM CDT documented as of this encounter Progress Notes [facility], PROVIDER - 11/13/2012 12:00 AM CST AL MILLER documented in this encounter Plan of Treatment Not on filedocumented as of this encounter Visit Diagnoses Not on filedocumented in this encounter Care Teams Family Medicine Physician Relationship Specialty Start Date End Date Franklin Squires MD PCP - General Family Practice 03/08/[address] [place] [address] [place] [address] documented as of this encounter
--- OUTSIDE RECORDS SUMMARY | 2022-07-04 15:09 | XMS_ITS | Encounter Summary ---
:1945 Author Organization [facility] Address [address] [address] Care Team Providers Name Role Phone Provider, Obtain Primary Care Provider Unavailable Reason for Visit Reason Onset Date Comments Refill 08/17/2013 baclofen Encounter Details Date Type Department Care Team Description 08/17/2013 Refill Specialty Center [address] , Refill (baclofen) Interventional Pain DO Management [address] [place] [address] [place] [address] [phone] Social History Tobacco Use Types Packs/Day Years [...] baclofen, one month, [address] Benito Cohen Romelia Chamberlain - 08/17/2013 1:52 PM CDT [...] unspecified documented in this encounter Care Teams Cementer Helper Relationship Specialty Start Date End Date Provider, Obtain PCP - General 04/15/13 09/03/13 documented as of this encounter
--- OUTSIDE RECORDS SUMMARY | 2022-07-04 15:09 | XMS_ITS | Encounter Summary ---
:1945 Author Organization [facility] Address [address], [place] [address] Care Team Providers Name Role Phone Provider, Obtain Primary Care Provider Unavailable Reason for Visit Reason Onset Date Comments Medication Questions 07/20/2013 lyrica Encounter Details Date Type Department Care Team Description 07/20/2013 Telephone Specialty Center [address] edication Questions Interventional Pain L, DO (lyrica) Management [address] [place] [phone] Social History Tobacco Use Types Packs/Day Years Used Date Smoking Tobacco: Never Smokeless Tobacco: Never Alcohol Use Standard Drinks/Week Comments No 0 (1 standard drink = 0.6 oz pure alcoho l) Sex Assigned at Date Recorded Male 08/06/2021 5:59 PM CDT documented as of this encounter Nursing Notes Romelia Chamberlain - 07/22/2013 9:45 AM CDT 30 day supply [facility]. Called the prior authorization in to [facility] approved 06/22/13 to [employer], approval number #[id number]. Pt informed. David Medeiros RN - 07/21/2013 4:25 PM CDT calling again to check on status of PA with [facility]. Phone # for [facility] [phone]. claims that the Pt has been getting the 50 mg qty with no issues. RX # [id number] qty 540 50 ng capsule RN explained that this will be investigated further JORGE LUIS. is asking to have a [facility] [place]. Celia Funez - 07/21/2013 12:52 PM CDT Patient is returning phone call. Romelia Chamberlain - 07/21/2013 12:42 PM CDT Left message for patient's to call back to clinic. Do not see an ALIVIA on file. Yazmin Montoya - 07/21/2013 11:56 AM CDT Pt's Heather called back stating she would like to discuss PA with nurse. [phone] David Medeiros RN - 07/20/2013 3:28 PM CDT PA needs to be completed for the Lyrica 50 mg caps. Previously approved at the 25 mg dosage. RN contacted Lucas Zhang / [employer] to initiate the PA process. Currently awaiting PA Forms. Case # [id number]. David Medeiros RN 07/20/2013, 3:41 PM Celia Funez - 07/20/2013 2:04 PM CDT Patient is calling in again states this is important and she would like to speak to nurse today Yazmin Montoya - 07/20/2013 11:34 AM CDT Pt's called requesting to speak with Dr. Cohen or nurse regarding pt's pregabalin (LYRICA) 50MG capsule. [phone] documented in this encounter Plan of Treatment Not on filedocumented as of this encounter Visit Diagnoses Diagnosis Back pain - Primary Backache, unspecified documented in this encounter Care Teams Commission For The Blind Director Relationship Specialty Start Date End Date Provider, Obtain PCP - General 04/15/13 09/03/13 documented as of this encounter
--- OUTSIDE RECORDS SUMMARY | 2022-07-04 15:09 | XMS_ITS | Encounter Summary ---
:1945 Author Organization [facility] Address [address], [place] [address] Care Team Providers Name Role Phone Unassigned, Provider Primary Care Provider Unavailable Reason for Visit Reason Comments Refill Encounter Details Date Type Department Care Team Description 09/23/2013 Refill Specialty Center [address], DO Refill Interventional Pain Management [address] [place] [address] [place] [address] [phone] Social History Tobacco Use Types Packs/Day Years [...] months Zelalem Cohen DO 04/20/2013, 1:53 PM D PROTECTION SPECIALIST documented in this encounter Plan of Treatment Not on filedocumented as of this encounter Visit Diagnoses Not on filedocumented in this encounter Care Teams Illusionist Relationship Specialty Start Date End Date Unassigned, Provider PCP - General Unknown Physician 09/04/13 12/15/[address] [place] [address] documented as of this encounter
--- OUTSIDE RECORDS SUMMARY | 2022-07-04 15:09 | XMS_ITS | Encounter Summary ---
:1945 Author Organization [facility] Address [address], [place] [address] Care Team Providers Name Role Phone Provider, Obtain Primary Care Provider Unavailable Reason for Visit Procedure/Equipment (Routine) - Closed Specialty Diagnoses / Procedures Referred By Contact Refer red To Contact Diagnoses Thoracic spine tumor (HRC) Garry Neff MD Procedures MR THORACIC SPINE [address] [place] [address] Referral ID Status Reason Start Date Expiration Date Visits Requ ested Visits Authorized [id number] Closed 11/26/2012 1 1 Encounter Details Date Type Department Care Team Description 04/20/2013 Imaging [facility] Specialty Alfonso Neff, Thoracic spine tumor Center [address] [place] [address] [place] [address] [phone] (Wo rk) Social History Tobacco Use Types [...] PM CDT Narrative 04/20/2013 3:00 PM CDT [facility] MRI THORACIC AND LUMBAR SPINE 04/20/2013. INDICATION: [...] note might be different from the original. [facility] MRI THORACIC AND LUMBAR SPINE 04/20/2013. INDICATION: [...] skin documented in this encounter Care Teams Cyber Security Architect Relationship Specialty Start Date End Date Provider, Obtain PCP - General 04/15/13 09/03/13 documented as of this encounter
--- OUTSIDE RECORDS SUMMARY | 2022-07-04 15:09 | XMS_ITS | Encounter Summary ---
:1945 Author Organization [facility] Address [address] [place] [address] Care Team Providers Name Role Phone Garry [...] LAB 10/23/2012 12:00 AM Results for this FOREPART REDUCER procedure are i n the results section . documented in this encounter Results SCANNED LAB (10/23/2012 12:00 AM FOREPART REDUCER) Specimen (Source) Anatomical Location Collection Method / Collectio n Time Received Time / Laterality Volume 10/23/2012 Narrative This result has an attachment that is no t available. Transcriptions No Primary/Referring, Phy - 10/23/2012 1 2:00 AM CST Phy No Primary/Referring LAB_1 documented in this encounter Visit Diagnoses Not on filedocumented in this encounter Care Teams Finisher Operator Relationship Specialty Start Date End Date Garry Neff MD PCP - General Neurosurgery 04/24/12 04/14/13 [address] [place] [address] documented as of this encounter
--- OUTSIDE RECORDS SUMMARY | 2022-07-04 15:09 | XMS_ITS | Encounter Summary ---
:1945 Author Organization [facility] Address [address] [address] Care Team Providers Name Role Phone Provider, Obtain Primary Care Provider Unavailable Reason for Referral Procedure/Equipment (Routine) - Closed Specialty Diagnoses / Procedures Referred By Contact Refer red To Contact Procedures Garry Neff MD MR THORACIC SPINE [address] WITH/WITHOUT CONTRAST [place], [place] [address] Referral ID Status Reason Start Date Expiration Date Visits Requ ested Visits Authorized [id number] Closed 04/20/2013 1 1 Reason for Visit Reason Comments Revisit Encounter Details Date Type Department Care Team Description 04/20/2013 Office Visit Specialty Center Garry Neff Epe ndymoma (Primary [address] NeuroSurgery X, Dx) [address] [place] [address] [place], [place] [phone] (Wo rk) Social History Tobacco Use Types [...] understanding. Please call the Neurosurgery/Spine Clinic at [phone] with any further questions or concerns. documented in this encounter Progress Notes Garry Neff MD - 05/19/2013 3:22 PM CDT Agree with above Garry Neff MD Jodi Smith PA-C - 05/19/2013 3:02 PM CDT I, Jodi Smith PA-C, am acting as a production hand for Dr. Neff, I am transcribing directly [...] this plan. Total time Dr. Neff spent [id number] with patient was 15 minutes, over 50% spent on counseling. Jodi Smith PA-C Neurosurgery This note created using speech-recognition software and may contain unintended word substitutions. documented in this encounter Plan of Treatment Not on filedocumented as of this encounter Results MR THORACIC SPINE WITH/WITHOUT CONTRAST (12/16/2013 1:10 PM WARP SPLITTER) Anatomical Region Laterality Modality Spine, T-Spine, L-Spine, C-Spine, Skeletal Magnetic Resonance Specimen (Source) Anatomical Collection Method Collection Time Re ceived Time Location / / Volume Laterality 12/16/2013 1:21 PM WARP SPLITTER Narrative 12/16/2013 3:08 PM WARP SPLITTER [facility] MRI THORACIC SPINE WITHOUT [...] note might be different from the original. [facility] MRI THORACIC SPINE WITHOUT AND WITH CONT [...] Primary documented in this encounter Care Teams Human Relations Professor Relationship Specialty Start Date End Date Provider, Obtain PCP - General 04/15/13 09/03/13 documented as of this encounter
--- OUTSIDE RECORDS SUMMARY | 2022-07-04 15:09 | XMS_ITS | Encounter Summary ---
:1945 Author Organization [facility] Address [address] [address] Care Team Providers Name Role Phone Provider, Obtain Primary Care Provider Unavailable Reason for Visit Reason Onset Date Comments Refill 07/08/2013 lyrica Encounter Details Date Type Department Care Team Description 07/08/2013 Refill Specialty Center [address], DO Refill (lyrica) Interventional Pain Management [address] [place] [address] [place] [address] [phone] Social History Tobacco Use Types Packs/Day Years [...] unspecified documented in this encounter Care Teams Mini Lab Operator Relationship Specialty Start Date End Date Provider, Obtain PCP - General 04/15/13 09/03/13 documented as of this encounter
--- OUTSIDE RECORDS SUMMARY | 2022-07-04 15:09 | XMS_ITS | Encounter Summary ---
:1945 Author Organization [facility] Address [address] [address] Care Team Providers Name Role Phone Franklin Squires MD Primary Care Provider Encounter Details Date Type Department Care Team Description 01/08/2013 Scanned History External to Transferred Record, ELIGIO RVIEW ZONIA Provider HOSPTIAL Social History Tobacco Use Types [...] on filedocumented in this encounter Care Teams Form Presser Relationship Specialty Start Date End Date Franklin Squires MD PCP - General Family Practice 03/08/[address] [place] [address] [facility] [place] [address] documented as of this encounter
--- OUTSIDE RECORDS SUMMARY | 2022-07-04 15:09 | XMS_ITS | Encounter Summary ---
:1945 Author Organization [facility] Address [address] [address] Care Team Providers Name Role Phone Provider, Obtain Primary Care Provider Unavailable Reason for Visit Reason Onset Date Comments Medication Questions 07/28/2013 Encounter Details Date Type Department Care Team Description 07/28/2013 Telephone Specialty Center [address] edication Questions Interventional Pain L, DO Management [address] [place] [phone] Social History Tobacco Use Types Packs/Day Years Used Date Smoking Tobacco: Never Smokeless Tobacco: Never Alcohol Use Standard Drinks/Week Comments No 0 (1 standard drink = 0.6 oz pure alcoho l) Sex Assigned at Date Recorded Male 08/06/2021 5:59 PM CDT documented as of this encounter Nursing Notes Romelia Chamberlain - 07/28/2013 10:16 AM CDT [phone] [facility] confirmation number [id number] for a clarification on the quantity, nothing [...] capsule. Would like to discuss with nurse. [phone] documented in this encounter Plan of Treatment Not on filedocumented as of this encounter Visit Diagnoses Diagnosis Back pain - Primary Backache, unspecified documented in this encounter Care Teams Rock Cutter Relationship Specialty Start Date End Date Provider, Obtain PCP - General 04/15/13 09/03/13 documented as of this encounter
--- OUTSIDE RECORDS SUMMARY | 2022-07-04 15:09 | XMS_ITS | Encounter Summary ---
:1945 Author Organization [facility] Address [address] [address] Care Team Providers Name Role Phone Garry Neff MD Primary Care Provider Reason for Visit Reason Onset Date Comments Medication Not Working 02/18/2013 Encounter Details Date Type Department Care Team Description 02/18/2013 Telephone Specialty Center [address] edication Not Working Interventional Pain L, DO Management [address] [place] [phone] Social History Tobacco Use Types Packs/Day Years [...] are not working. Please call him at [phone] documented in this encounter Plan of Treatment Not on filedocumented as of this encounter Visit Diagnoses Not on filedocumented in this encounter Care Teams White Metal Caster Relationship Specialty Start Date End Date Garry Neff MD PCP - General Neurosurgery 04/24/12 04/14/13 [facility] [place] [address] documented as of this encounter
--- OUTSIDE RECORDS SUMMARY | 2022-07-04 15:09 | XMS_ITS | Encounter Summary ---
:1945 Author Organization [facility] Address [address] [place] [address] Care Team Providers Name Role Phone Provider, Obtain Primary Care Provider Unavailable Reason for Visit Procedure/Equipment (Routine) - Closed Specialty Diagnoses / Procedures Referred By Contact Refer red To Contact Procedures Selene Johnson RN MR LUMBAR SPINE WITHOUT [address] [place] [place] [address] Referral ID Status Reason Start Date Expiration Date Visits Requ ested Visits Authorized [id number] Closed 03/27/2013 1 1 Encounter Details Date Type Department Care Team Description 04/20/2013 Imaging [facility] Specialty MingoJodi, Screening for Center MRI PA-C nephropathy (Primary [address] [place]x) [place] [address] [place], [place] [phone] Social History Tobacco Use Types Packs/Day Years [...] PM CDT Narrative 04/20/2013 3:00 PM CDT [facility] MRI THORACIC AND LUMBAR SPINE 04/20/2013. [...] note might be different from the original. [facility] MRI THORACIC AND LUMBAR SPINE 04/20/2013. [...] 04/20/2013 1:35 PM C DT Performed at [place] [address] [facility] Laboratory, [address] [place] [address] Birgit ASKEW LAB_1 Performing Organization Address City/State/ZIP Code Phon e Number [facility] [phone] documented in this encounter Visit Diagnoses Diagnosis Screening for nephropathy - Primary documented in this encounter Care Teams Manager Water Relationship Specialty Start Date End Date Provider, Obtain PCP - General 04/15/13 09/03/13 documented as of this encounter
--- OUTSIDE RECORDS SUMMARY | 2022-07-04 15:09 | XMS_ITS | Encounter Summary ---
:1945 Author Organization [facility] Address [address] [address] Care Team Providers Name Role Phone Unassigned, [...] on filedocumented in this encounter Care Teams Information Systems Manager Relationship Specialty Start Date End Date Unassigned, Provider PCP - General Unknown Physician 09/04/13 12/15/[address] [place] [address] documented as of this encounter
--- OUTSIDE RECORDS SUMMARY | 2022-07-04 15:09 | XMS_ITS | Encounter Summary ---
:1945 Author Organization [facility] Address [address] [address] Care Team Providers Name Role Phone Garry Neff MD Primary Care Provider Reason for Visit Reason Onset Date Comments Refill 10/30/2012 Encounter Details Date Type Department Care Team Description 10/30/2012 Refill Specialty Center 401 Zelalem Cohen, DO Refill Interventional Pain Management [address] [place] [address] [place] [address] [phone] Social History Tobacco Use Types Packs/Day Years [...] pharmacy. Mi Osborne RN 10/31/2012, 11:24 AM DIRECTOR Stella Michelle - 10/31/2012 10:40 AM CST Pt called to say he needs this med today. DIRECTOR Mi Osborne, RN - 10/30/2012 9:10 AM CST Refill request for tizanidine received. Last rx was 07/29/12 and patient was last seen at that time. He cancelled 10/21/12 appt. Please advise regarding refill request. Mi Osborne RN 10/30/2012, 9:11 AM DIRECTOR documented in this encounter Plan of Treatment Not on filedocumented as of this encounter Visit Diagnoses Diagnosis Back pain - Primary Backache, unspecified documented in this encounter Care Teams Nuclear Criticality Safety Engineer Relationship Specialty Start Date End Date Garry Neff MD PCP - General Neurosurgery 04/24/12 04/14/[address] [place], [place] [address] [address] documented as of this encounter
--- OUTSIDE RECORDS SUMMARY | 2022-07-04 15:09 | XMS_ITS | Encounter Summary ---
:1945 Author Organization [facility] Address [address], [place] [address] Care Team Providers Name Role Phone Garry Neff MD Primary Care Provider Reason for Visit Reason Onset Date Comments Medication Request 09/24/2012 Encounter Details Date Type Department Care Team Description 09/24/2012 Telephone Specialty Center 401 Zelalem Cohen , Medication Request Interventional Pain DO Management [address] [place] [address] [phone] Social History Tobacco Use Types Packs/Day Years [...] sent. Mi Osborne RN 09/25/2012, 2:36 PM VIORAL SCIENCE CHAIR Mi Osborne RN - 09/24/2012 2:34 PM CST Patient was last seen 07/29 and last baclofen rx was from that date. He has f/u scheduled 10/21. Ok to refill baclofen? Mi Osborne RN 09/24/2012, 2:35 PM VIORAL SCIENCE CHAIR documented in this encounter Plan of Treatment Not on filedocumented as of this encounter Visit Diagnoses Diagnosis Back pain - Primary Backache, unspecified documented in this encounter Care Teams Wood Calker Relationship Specialty Start Date End Date Garry Neff MD PCP - General Neurosurgery 04/24/12 04/14/13 [address] [place] [address] documented as of this encounter
--- OUTSIDE RECORDS SUMMARY | 2022-07-04 15:09 | XMS_ITS | Encounter Summary ---
:1945 Author Organization [email or web address] Address [address], [place] [address] Care Team Providers Name Role Phone Unassigned, Provider Primary Care Provider Unavailable Reason for Visit Reason Comments Refill Encounter Details Date Type Department Care Team Description 10/02/2013 Refill Specialty Center 401 Ana Cohen DO Refill Interventional Pain Management [address] [place] [address] [place] [address] [phone] Social History Tobacco Use Types Packs/Day Years Used Date Smoking Tobacco: Never Smokeless Tobacco: Never Alcohol Use Standard Drinks/Week Comments No 0 (1 standard drink = 0.6 oz pure alcoho l) Sex Assigned at Date Recorded Male 08/06/2021 5:59 PM CDT documented as of this encounter Nursing Notes Viktor Bo - 10/02/2013 3:58 PM CSTSigned Prescriptions: Disp Refills orphenadrine 100 MG tablet 180 Pvy5Dpn: TAKE 1 TABLET BY MOUTH 2 TIMES A DAY NEEDED FOR MUSCLE SPASM OR PAINAuthorizing Provider: ANA COHEN User: ROMELIA ROSE TURE WINDER HELPER REPAIR Romelia Rose - 10/02/2013 3:51 PM CST refilled TURE WINDER HELPER REPAIR Ana Cohen MD - 10/02/2013 3:23 PM CST Norflex No change one month [address] Benito Cohen TURE WINDER HELPER REPAIR Romelia Rose - 10/02/2013 9:37 AM CST [...] 6-8 months Ana Cohen, 04/20/2013, 1:53 PM TURE WINDER HELPER REPAIR documented in this encounter Plan of Treatment Not on filedocumented as of this encounter Visit Diagnoses Not on filedocumented in this encounter Care Teams Inspector Machined Parts Relationship Specialty Start Date End Date Unassigned, Provider PCP - General Unknown Physician 09/04/13 12/15/[address] [place] [address] documented as of this encounter
--- OUTSIDE RECORDS SUMMARY | 2022-07-04 15:09 | XMS_ITS | Encounter Summary ---
:1945 Author Organization [facility] Address [address] [address] Care Team Providers Name Role Phone Unavailable Primary Care Provider Unavailable Reason for Referral Procedure/Equipment (Routine) - Closed Specialty Diagnoses / Procedures Referred By Contact Refer red To Contact Procedures Garry Neff MD MR THORACIC SPINE [address] WITH/WITHOUT CONTRAST [place], [place] [address] Referral ID Status Reason Start Date Expiration Date Visits Requ ested Visits Authorized [id number] Closed 12/16/2013 03/17/2015 1 1 P PREPARER Reason for Visit Reason Comments Revisit F/u Encounter Details Date Type Department Care Team Description 12/16/2013 Office Visit Specialty Center Garry Neff Epsalome ndymoma (Primary 401 NeuroSurgery X, Dx) [address] [place] [address] [place], [place] [phone] (Wo rk) Social History Tobacco Use Types [...] Comments Blood Pressure 142/75 12/16/2013 1:18 PM SCRAP PREPARER Pulse 81 12/16/2013 1:18 PM SCRAP PREPARER Temperature 35.9 ??C (96.6 ??F) 12/16/2013 1:18 PM SCRAP PREPARER Respiratory Rate - - Oxygen Saturation - [...] understanding. Please call the Neurosurgery/Spine Clinic at [phone] with any further questions or concerns. P PREPARER documented in this encounter Progress Notes Cristine [...] which over 50% was spent on counseling. P PREPARER documented in this encounter Plan of Treatment [...]
--- OUTSIDE RECORDS SUMMARY | 2022-07-04 15:09 | XMS_ITS | Encounter Summary ---
:1945 Author Organization [facility] Address [address], [place] [address] Care Team Providers Name Role Phone Garry Neff MD Primary Care Provider Encounter Details Date Type Department Care Team Description 01/13/2013 Notes/Orders Specialty Center 401 Zelalem Cohen , Interventional Pain DO Management [address] [place] [address] [place] [address] [phone] Social History Tobacco Use Types Packs/Day Years [...] patient that rx would be re-faxed today. Research Statistician spoke with [facility] staff who states that correct fax number is [phone] and that if needed can call [phone] for verbal rx order. Rx faxed to new fax number. Mi Osborne RN 01/13/2013, 11:46 AM NG CLEANER documented in this encounter Plan of Treatment Not on filedocumented as of this encounter Visit Diagnoses Not on filedocumented in this encounter Care Teams Improvement Director Relationship Specialty Start Date End Date Garry Neff MD PCP - General Neurosurgery 04/24/12 04/14/13 [address] [place] [address] documented as of this encounter
--- OUTSIDE RECORDS SUMMARY | 2022-07-04 15:09 | XMS_ITS | Encounter Summary ---
:1945 Author Organization [facility] Address [address] [address] Care Team Providers Name Role Phone Franklin Squires MD Primary Care Provider Encounter Details Date Type Department Care Team Description 09/17/2013 Correspondence External to External, Provid er EMPOWERMENT [place] [address] Social History Tobacco Use Types Packs/Day Years Used Date Smoking Tobacco: Never Smokeless Tobacco: Never Alcohol Use Standard Drinks/Week Comments No 0 (1 standard drink = 0.6 oz pure alcoho l) Sex Assigned at Date Recorded Male 08/06/2021 5:59 PM CDT documented as of this encounter Progress Notes External, Provider - 09/17/2013 12:00 AM CST R OPERATOR documented in this encounter Plan of Treatment Not on filedocumented as of this encounter Visit Diagnoses Not on filedocumented in this encounter Care Teams Director Financial Systems Relationship Specialty Start Date End Date Franklin Squires MD PCP - General Family Practice 03/08/[address] [place] [address] [place] [address] documented as of this encounter
--- OUTSIDE RECORDS SUMMARY | 2022-07-04 15:09 | XMS_ITS | Encounter Summary ---
:1945 Author Organization [facility] Address [address] [address] Care Team Providers Name Role Phone Provider, Obtain Primary Care Provider Unavailable Reason for Visit Reason Onset Date Comments QUESTIONS, GENERAL 08/18/2013 Encounter Details Date Type Department Care Team Description 08/18/2013 Telephone Specialty Center 401 Zelalem Cohen , QUESTIONS, GENERAL Interventional Pain DO Management [address] [place] [phone] Social History Tobacco Use Types Packs/Day Years [...] a different pharmacy, using pharmacy 1 in [facility]. Prescription for baclophen sent to pharmacy requested [...] unspecified documented in this encounter Care Teams Awning Craftsperson Relationship Specialty Start Date End Date Provider, Obtain PCP - General 04/15/13 09/03/13 documented as of this encounter
--- OUTSIDE RECORDS SUMMARY | 2022-07-04 15:09 | XMS_ITS | Encounter Summary ---
:1945 Author Organization [employer] Address [address] [address] Care Team Providers Name Role Phone Unassigned, Provider Primary Care Provider Unavailable Reason for Referral Consult/Transfer Care (Routine) - Closed Specialty Diagnoses / Procedures Referred By Contact Refer red To Contact Diagnoses Paraplegia (HRC) May Randle MD [address] [place] [address] Referral ID Status Reason Start Date Expiration Date Visits Requ ested Visits Authorized [id number] Closed 09/07/2013 1 1 Scheduling Instructions Your provider has recommended an appoint ment with a [facility] Physical Therapist. Please stop at the clinic check out desk for assistance with scheduling or please choose from one of the convenient locati ons to call and schedule your PT appointment: [facility] Out[facility] PT at [facility] [phone], [facility] Outpatient PT at [address] [phone], [facility] Outpat ient PT at [facility] [phone]. Reason for Visit Reason Comments Revisit Paraplegia last visit 03/11/12 Encounter Details Date Type Department Care Team Description 09/07/2013 Office Visit Specialty Center May Randle Para plegia (Primary Dx); 401 Physical Kirsten Clemente MD Right shoulder pain; [address] Olecranon bursitis of left elbow; [place] [address] [place], [place] Neurogenic bowel; [phone] [address] Neurogenic bladder; [phone] Spasticity; (Work) DVT (deep venous thrombosis); Back [...] treatment plan is please contact us at [phone] or send us a secure message via [employer]. If you need follow-up in the future, please call [phone] for an appointment. If you cannot get a time that satisfies you, please let us know what times work for you and we will do our best to accommodate you. Thank you for choosing May Randle MD and [facility] Physical Medicine and Rehabilitation. documented in this [...] mobile C500. He has discussed this with [facility] seating and mobility. We have discussed today [...] years and initially had his rehabilitation at [facility]. At that point he was still [...] which he subsequently weaned off of. Dr. Coehn now has him taking when necessary tizanadine. [...] well managed He had been seeing Dr. Goerge Bright because of right shoulder pain. He [...] care physician is Dr. Loretta GOSS at [facility] in [facility]. He continues to follow with Dr. Neff in neurosurgery regarding the thoracic tumor Past Medical History Diagnosis Date ??? 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 However resection was incomplete due [...] 1 at baseline. Lives with his in [place]. Family History Problem Relation Age of Onset [...] S [facility] PHYSICAL THERAPY Referral Routine Paraplegia Ordered: documented [...] unspecified documented in this encounter Care Teams Hydraulic Rubbish Compactor Mechanic Relationship Specialty Start Date End Date Unassigned, Provider PCP - General Unknown Physician 09/04/[address] [place] [address] documented as of this encounter
--- OUTSIDE RECORDS SUMMARY | 2022-07-04 15:09 | XMS_ITS | Encounter Summary ---
:1945 Author Organization [facility] [email or web address] Address [address], [place] [address] Care Team Providers Name Role Phone Garry Neff MD Primary Care Provider Reason for Visit Reason Onset Date Comments RESULTS, TEST 11/26/2012 Encounter Details Date Type Department Care Team Description 11/26/2012 Telephone Specialty Center 401 Garry Neff MD RESULTS, TEST NeuroSurgery [address] [place] [address] [place] [address] [phone] Social History Tobacco Use Types Packs/Day Years [...] him of the above. Order placed this tag writer did explain that he can call 3 months to schedule this appointment. Patient will call with any further questions or concerns.Selene Johnson RN 11/26/2012, 10:22 AM OPAEDIC DOCTOR Sweetie Sterling - 11/26/2012 9:54 AM CST Pt is requesting a call with MRI results from 1-3. 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
--- OUTSIDE RECORDS SUMMARY | 2022-07-04 15:09 | XMS_ITS | Encounter Summary ---
:1945 Author Organization [facility] Address [address] [address] Care Team Providers Name Role Phone Unassigned, Provider Primary Care Provider Unavailable Reason for Visit Reason Onset Date Comments Forms 11/12/2013 [employer] Encounter Details Date Type Department Care Team Description 11/12/2013 Telephone Specialty Center May Randle F or ([employer] 401 Physical Medicin e MD & Mobility) [address] [place] [address] [place], [place] [phone] (Wo rk) Social History Tobacco Use Types Packs/Day Years Used Date Smoking Tobacco: Never Smokeless Tobacco: Never Alcohol Use Standard Drinks/Week Comments No 0 (1 standard drink = 0.6 oz pure alcoho l) Sex Assigned at Date Recorded Male 08/06/2021 5:59 PM CDT documented as of this encounter Nursing Notes Stella Michelle - 11/16/2013 4:23 PM CST Completed and faxed OLOGIC AIDE Stella Michelle - 11/12/2013 3:36 PM CST [employer] forms placed on Dr. Randle's Desk OLOGIC AIDE documented in this encounter Plan of Treatment Not on filedocumented as of this encounter Visit Diagnoses Not on filedocumented in this encounter Care Teams Artist Manager Relationship Specialty Start Date End Date Unassigned, Provider PCP - General Unknown Physician 09/04/[address] [place] [address] documented as of this encounter
--- OUTSIDE RECORDS SUMMARY | 2022-07-04 15:09 | XMS_ITS | Encounter Summary ---
:1945 Author Organization [facility] Address [address], [place] [address] Care Team Providers Name Role Phone Garry Neff MD Primary Care Provider Reason for Visit Reason Onset Date Comments Medication Request 02/13/2013 Encounter Details Date Type Department Care Team Description 02/13/2013 Telephone Specialty Center 401 Zelalem Cohen , Medication Request Interventional Pain DO Management [address] [place] [address] [phone] Social History Tobacco Use Types Packs/Day Years [...] documented in this encounter Care Teams Manager Student Services Relationship Specialty Start Date End Date Garry Neff MD PCP - General Neurosurgery 04/24/12 04/14/13 [address] [place] [address] documented as of this encounter
--- OUTSIDE RECORDS SUMMARY | 2022-07-04 15:09 | XMS_ITS | Encounter Summary ---
:1945 Author Organization [facility] Address [address], [place] [address] Care Team Providers Name Role Phone Unassigned, Provider Primary Care Provider Unavailable Reason for Visit Reason Comments Refill Encounter Details Date Type Department Care Team Description 10/14/2013 Refill Specialty Center 401 Ana Cohen DO Refill Interventional Pain Management [address] [place] [address] [place] [address] [phone] Social History Tobacco Use Types Packs/Day Years [...] baclofen (AKA LIORESAL) 20 MG tablet 180 Joz5Glg: TAKE 2 TABLETS BY MOUTH THREE TIMES A DAY.Authorizing Provider: ANA COHEN User: ROMELIA ROSE EMAKER Romelia Rose - 10/15/2013 4:48 PM CST Refilled. EMAKER Ana Cohen MD - 10/15/2013 4:03 PM CST Baclofen, no change one month [address] cohen EMAKER Romelia Rose - 10/15/2013 3:40 PM CST [...] 6-8 months Ana Cohen, 04/20/2013, 1:53 PM EMAKER documented in this encounter Plan of Treatment Not on filedocumented as of this encounter Visit Diagnoses Not on filedocumented in this encounter Care Teams Programming Coordinator Relationship Specialty Start Date End Date Unassigned, Provider PCP - General Unknown Physician 09/04/13 12/15/[address] [place] [address] documented as of this encounter
--- OUTSIDE RECORDS SUMMARY | 2022-07-04 15:09 | XMS_ITS | Encounter Summary ---
:1945 Author Organization [facility] Address [address] [place] [address] Care Team Providers Name Role Phone Provider, Obtain Primary Care Provider Unavailable Reason for Visit Reason Comments RECTAL PAIN Encounter Details Date Type Department Care Team Description 04/15/2013 Office Visit Specialty Center Benito Browne Proc talgia fugax 401 Surgery Clinic (Primary Dx) [address] [place] [address] [place], [place] [phone] Social History Tobacco Use Types Packs/Day Years [...] we gently spread his buttocks with an shipping assistant in the room. His anus is [...] Colonoscopy status: 2010 by general surgeon in [place]. Reportedly normal. ROS: CONSTITUTIONAL: Negative. 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
--- OUTSIDE RECORDS SUMMARY | 2022-07-04 15:09 | XMS_ITS | Encounter Summary ---
:1945 Author Organization [facility] Address [address] [address] Care Team Providers Name Role Phone Garry Neff MD Primary Care Provider Reason for Referral Procedure/Equipment (Routine) - Closed Specialty Diagnoses / Procedures Referred By Contact Refer red To Contact Diagnoses Back pain Rectal pain Zelalem Cohen DO [address] [place] [address] Referral ID Status Reason Start Date Expiration Date Visits Requ ested Visits Authorized [id number] Closed 02/25/2013 1 1 Scheduling Instructions If [...] Management [address] [place] [phone] Social History Tobacco Use Types Packs/Day Years [...] talk to Dr. Marte his surgeon at [facility]. Assured patient that Dr. Cohen would [...] pain documented in this encounter Care Teams Driller And Broacher Relationship Specialty Start Date End Date Garry Neff MD PCP - General Neurosurgery 04/24/12 04/14/13 [address] [place] [address] documented as of this encounter
--- OUTSIDE RECORDS SUMMARY | 2022-07-04 15:09 | XMS_ITS | Encounter Summary ---
:1945 Author Organization [email or web address] Address [address], [place] [address] Care Team Providers Name Role Phone Garry Neff MD Primary Care Provider Reason for Visit Reason Onset Date Comments Refill 01/08/2013 Encounter Details Date Type Department Care Team Description 01/08/2013 Refill Specialty Center 401 Zelalem Cohen, DO Refill Interventional Pain Management [address] [place] [address] [place] [address] [phone] Social History Tobacco Use Types Packs/Day Years [...] the Lyrica Please fax prescription to - [phone] ING AIDE documented in this encounter Plan of Treatment Not on filedocumented as of this encounter Visit Diagnoses Diagnosis Back pain - Primary Backache, unspecified documented in this encounter Care Teams Ramp Jockey Relationship Specialty Start Date End Date Garry Neff MD PCP - General Neurosurgery 04/24/12 04/14/13 [facility] [place] [address] documented as of this encounter
--- OUTSIDE RECORDS SUMMARY | 2022-07-04 15:09 | XMS_ITS | Encounter Summary ---
:1945 Author Organization On license of [facility] [address], [place] [address] Care Team Providers Name Role Phone Unassigned, Provider Primary Care Provider Unavailable Encounter Details Date Type Department Care Team Description 10/21/2013 Office Visit [facility] May Randle MD [address] [place] [address] Paraplegia (Primary Dx); Physical Therapy Trudi Raymundo, PT [address] [place] [address] Osteoporosis [address] [place] [address] Social History Tobacco Use Types Packs/Day Years Used Date Smoking Tobacco: Never Smokeless Tobacco: Never Alcohol Use Standard Drinks/Week Comments No 0 (1 standard drink = 0.6 oz pure alcoho l) Sex Assigned at Date Recorded Male 08/06/2021 5:59 PM CDT documented as of this encounter Progress Notes Trudi Raymundo, PT - 10/21/2013 10:24 AM CST OUTPATIENT PHYSICAL THERAPY: SEATING/MOBILITY EVALUATION Jeff Cullen [id number] 1945 Payor: MEDICARE Plan: MEDICARE [id number] Product Type: Medicare Referring Provider: May Randle [...] years and initially had his rehabilitation at [facility]. 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 PATIENTS GOALS: Seeking power wheelchair [...] osteoporosis (fracture prevention). He is a time clerk wheelchair user and is not ambulatory. He [...] He may required another Face toface- MET [facility] GOALS (to be met within 3 months) [...] with your signature, to our clinic at [phone]. Your signature is required to continue treatment of the above patient per Medicare / Medical Assistance regulations. I certify the need for the above services furnished under this treatment plan while under my care. _ Physician's Signature 10/21/2013 EHOUSE WORKER Trudi Raymundo PT - 10/21/2013 12:00 AM CST EHOUSE WORKER documented in this encounter Plan of Treatment Not on filedocumented as of this encounter Visit Diagnoses Diagnosis Paraplegia (HRC) - Primary Paraplegia Osteoporosis (HRC) Osteoporosis, unspecified documented in this encounter Care Teams Porcelain Enameling Supervisor Relationship Specialty Start Date End Date Unassigned, Provider PCP - General Unknown Physician 09/04/13 12/15/[address] [place] [address] documented as of this encounter
--- OUTSIDE RECORDS SUMMARY | 2022-07-04 15:10 | XMS_ITS | Encounter Summary ---
:1945 Author Organization [facility] Address [address] [place] [address] Care Team Providers Name Role Phone Garry Neff MD Primary Care Provider Encounter Details Date Type Department Care Team Description 04/24/2012 Orders Only [facility] Specialty Alvarado Harris, [facility] [address] [place] [address] [place] [address] [phone] (Wo rk) Social History Tobacco Use Types [...] Organization Address City/State/ZIP Code Phon e Number [facility] [phone] [facility] [address] [place] [phone] documented in this encounter Visit Diagnoses Not on filedocumented in this encounter Care Teams Jewel Inspector Relationship Specialty Start Date End Date Garry Neff MD PCP - General Neurosurgery 04/24/12 04/14/13 [address] [place] [address] documented as of this encounter
--- OUTSIDE RECORDS SUMMARY | 2022-07-04 15:10 | XMS_ITS | Encounter Summary ---
:1945 Author Organization [facility] Address [address] [address] Care Team Providers Name Role Phone Provider, Not On File Primary Care Provider Unavailable Reason for Visit Reason Comments Revisit Paraplegia Encounter Details Date Type Department Care Team Description 03/11/2012 Office Visit Specialty Center May Randle Para plegia (Primary Dx); 401 Physical Kirsten Clemente MD Ependymoma; [address] Neurogenic bladder; [place] [address] [place], [place] Back pain; [phone] Neurogenic bowel Social History Tobacco Use Types [...] years and initially had his rehabilitation at [facility]. At that point he was still [...] was worth getting. He is worked at [employer] and apparently has a different seat back [...] an intrathecal baclofen pump placed through the [facility]. Unfortunately he developed meningitis and did have [...] care physician is Dr. Loretta GOSS at [facility] in [facility]. He continues to follow with Dr. Neff in neurosurgery regarding the thoracic tumor Past Medical History Diagnosis Date ??? 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 Glasgow at [place] in 05/2000. However resection was incomplete due [...] 1 at baseline. Lives with his in [place]. Family History Problem Relation Age of Onset [...] bowel documented in this encounter Care Teams Programming Engineer Relationship Specialty Start Date End Date Provider, Not On File PCP - General 03/03/12 04/23/12 [address] [place] [address] documented as of this encounter
--- OUTSIDE RECORDS SUMMARY | 2022-07-04 15:10 | XMS_ITS | Encounter Summary ---
:1945 Author Organization [facility] Address [address], [place] [address] Care Team Providers Name Role Phone Unavailable [...]
--- OUTSIDE RECORDS SUMMARY | 2022-07-04 15:10 | XMS_ITS | Encounter Summary ---
:1945 Author [facility] Address [address], [place] [address] Care Team Providers Name Role Phone Garry [...] as of this encounter Procedure Notes Haily Sepncer Provider - 08/27/2012 12:00 AM CDTAssociated Order(s): [...] on filedocumented in this encounter Care Teams Corporate Legal Manager Relationship Specialty Start Date End Date Garry Neff MD PCP - General Neurosurgery 04/24/12 04/14/13 [address] [place] [address] documented as of this encounter
--- OUTSIDE RECORDS SUMMARY | 2022-07-04 15:10 | XMS_ITS | Encounter Summary ---
:1945 Author Organization [facility] Address [address] [address] Care Team Providers Name Role Phone Garry Neff MD Primary Care Provider Reason for Visit Reason Onset Date Comments Medication Questions 06/23/2012 Encounter Details Date Type Department Care Team Description 06/23/2012 Telephone Specialty Center [address] Cohen edication Questions Interventional Pain L, DO Management [address] [place] [phone] Social History Tobacco Use Types Packs/Day Years [...] unspecified documented in this encounter Care Teams Photocomposing Keyboard Operator Relationship Specialty Start Date End Date Garry Neff MD PCP - General Neurosurgery 04/24/12 04/14/13 [address] [place] [address] documented as of this encounter
--- OUTSIDE RECORDS SUMMARY | 2022-07-04 15:10 | XMS_ITS | Encounter Summary ---
:1945 Author Organization [facility] Address [address] [place] [address] Care Team Providers Name Role Phone Provider, Not On File Primary Care Provider Unavailable Encounter Details Date Type Department Care Team Description 03/31/2012 Notes/Orders Specialty Center 401 Selene Johnson, RN [facility] [address] [place] [address] [place] [address] [phone] Social History Tobacco Use Types Packs/Day Years [...] filedocumented in this encounter Care Teams Information Assurance Analyst Relationship Specialty Start Date End Date Provider, Not On File PCP - General 03/03/12 04/23/12 [address] [place] [address] documented as of this encounter
--- OUTSIDE RECORDS SUMMARY | 2022-07-04 15:10 | XMS_ITS | Encounter Summary ---
:1945 Author Organization [facility] Address [address] [address] Care Team Providers Name Role Phone Franklin Squires MD Primary Care Provider Encounter Details Date Type Department Care Team Description 04/24/2012 Correspondence [facility], MRI SAFETY SHEET [address] [facility] [place] [address] Social History Tobacco Use Types Packs/Day Years [...] on filedocumented in this encounter Care Teams Special Education Resource Teacher Relationship Specialty Start Date End Date Franklin Squires MD PCP - General Family Practice 03/08/16 [address] [facility] [place] [address] documented as of this encounter
--- OUTSIDE RECORDS SUMMARY | 2022-07-04 15:10 | XMS_ITS | Encounter Summary ---
:1945 Author Organization [facility] Address [address] [address] Care Team Providers Name Role Phone Garry Neff MD Primary Care Provider Encounter Details Date Type Department Care Team Description 04/24/2012 Imaging [facility] Specialty Alfonso Neff, Screening for Center MRI nephropathy (Primary [address]x) [place] [address] [place] [address] [phone] (Wo rk) Social History Tobacco Use Types [...] AM CDT Narrative 04/24/2012 11:44 AM CDT [facility] THORACIC SPINE MRI 04/24/2012 INDICATION: Followup thoracic [...] note might be different from the original. [facility] THORACIC SPINE MRI 04/24/2012 INDICATION: Followup thoracic [...] Primary documented in this encounter Care Teams Water Project Engineer Relationship Specialty Start Date End Date Garry Neff MD PCP - General Neurosurgery 04/24/12 04/14/13 [address] [place] [address] documented as of this encounter
--- OUTSIDE RECORDS SUMMARY | 2022-07-04 15:10 | XMS_ITS | Encounter Summary ---
:1945 Author Organization [facility] Address [address] [address] Care Team Providers Name Role Phone Provider, Not On File Primary Care Provider Unavailable Reason for Visit Reason Comments Revisit Neuropathic pain syndrome Encounter Details Date Type Department Care Team Description 03/03/2012 Office Visit Specialty Center [address] Cohen feliberto cord injury (Primary Dx); Interventional Pain L, DO Ependymoma Management [address] [place] [phone] Social History Tobacco Use Types Packs/Day Years [...] site documented in this encounter Care Teams Political Theory Professor Relationship Specialty Start Date End Date Provider, Not On File PCP - General 03/03/12 04/23/12 [address] [place] [address] documented as of this encounter
--- OUTSIDE RECORDS SUMMARY | 2022-07-04 15:10 | XMS_ITS | Encounter Summary ---
:1945 Author Organization [facility] Address [address], [place] [address] Care Team Providers Name Role Phone Garry Neff MD Primary Care Provider Reason for Visit Reason Onset Date Comments Medication Request 07/29/2012 Encounter Details Date Type Department Care Team Description 07/29/2012 Telephone Specialty Center 401 Zelal[address] Cohen , Medication Request Interventional Pain DO Management [address] [place] [phone] Social History Tobacco Use Types Packs/Day Years [...] unspecified documented in this encounter Care Teams Hand Deicer Element Winder Relationship Specialty Start Date End Date Garry Neff MD PCP - General Neurosurgery 04/24/12 04/14/13 [address] [place] [address] documented as of this encounter
--- OUTSIDE RECORDS SUMMARY | 2022-07-04 15:10 | XMS_ITS | Encounter Summary ---
:1945 [facility] Address [address], [place] [address] Care Team Providers Name Role Phone Garry [...] on filedocumented in this encounter Care Teams Oracle Bpm Consultant Relationship Specialty Start Date End Date Garry Neff MD PCP - General Neurosurgery 04/24/12 04/14/13 [address] [place] [address] documented as of this encounter
--- OUTSIDE RECORDS SUMMARY | 2022-07-04 15:10 | XMS_ITS | Encounter Summary ---
:1945 Author Organization [facility] Address [address], [place] [address] Care Team Providers Name Role Phone Garry Neff MD Primary Care Provider Reason for Visit Reason Onset Date Comments Refill 05/02/2012 Encounter Details Date Type Department Care Team Description 05/02/2012 Refill Specialty Center 401 Zelal[address] Cohen, Refill Interventional Pain Management [address] [place] [address] [place] [address] [phone] Social History Tobacco Use Types Packs/Day Years [...] site documented in this encounter Care Teams Carbonator Relationship Specialty Start Date End Date Garry Neff MD PCP - General Neurosurgery 04/24/12 04/14/13 [address] [place] [address] documented as of this encounter
--- OUTSIDE RECORDS SUMMARY | 2022-07-04 15:10 | XMS_ITS | Encounter Summary ---
:1945 Author Organization [facility] [address] [address] Care Team Providers Name Role Phone Unavailable Primary Care Provider Unavailable Reason for Visit Consult/Transfer Care - Closed Specialty Diagnoses / Procedures Referred By Contact Refer red To Contact aMy Randle MD [address] [place] [address] Referral ID Status Reason Start Date Expiration Date Visits Requ ested Visits Authorized [id number] Closed 12/17/2011 1 1 Encounter Details Date Type Department Care Team Description 01/17/2012 Office Visit [facility] May Randle MD [address] [place], [place] [phone] Paraplegia; Physical Therapy Trudi Raymundo, PT [address] [place], [place] [phone] Osteoporosis; [address] Gait abnormality; [place] [address] Back pain [phone] Social History Tobacco Use Types Packs/Day Years [...] SEATING/MOBILITY EVALUATION Carl Cullen [address] [facility] [id number] 1945 Estimated Body mass index is 35.06 kg/(m^2) as calculated from the following: Height as of 12/17/11: 5' 9(1.753 m). Weight as of 12/17/11: 237 lb 6.4 oz(107.684 kg). 01/17/2012 May Randle MD [address] [place] [address] Diagnosis: Paraplegia, osteoporosis, gait abnormality, back pain Payor: MEDICARE Plan: MEDICARE PART B ONLY Product Type: Medicare Physician: Dr. Randle Funding: Medicare / [employer] Vendor: [employer] ([employer]) Onset Date: date of referral: 12/18/11 MEDICAL [...] 2000 S/p resection by Dr. Glasgow at [place] in 05/2000. However resection was incomplete due [...] postop bleed cmpl ??? Total knee replacement (82986) right ??? Ivc filter placement 1999 Patient Active Problem List Diagnoses Code ??? 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 Fever 780.60BQ ??? Probable Bacterial Meningitis 320.9D ??? DVT (Deep Venous Thrombosis) 453.40U ??? Neurogenic Bladder 596.54AL ??? HTN (Hypertension) 401.9AE ??? CAREPLAN: BACLOFEN [id number] ??? Osteoporosis 733.00C ??? Paraplegia 344.1 ??? Hyperparathyroidism 252.00A ??? Vitamin D deficiency 268.9G Recent/Planned Surgeries: bilateral femoral Condyle IM nailings in March of 2011. Cardio-Respiratory Status: intact CURRENT SEATING/MOBILITY: (Type - Paradi Operator-Model) Chair: [employer] [address] W/C, age: 4 1/2 years old w/c Cushion: Van seat, age: same as chair w/c Back: Van back, age: same as chair Also has a [employer] 600 purchased privately in June of 2011. Has an [employer] cushion and a [employer] Radius back, both purchased privately. Pressure mapping [...] driving. 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 Employment/Educational requirements: patient is on [...] having some pressure along thighs in his [employer] 600 manual wheelchair that was 18 inches [...] Sincerely, Trudi Raymundo, PT License Number: [id number] CLINICAL OFFICER documented in this encounter Plan of Treatment Scheduled Referrals Name Type Priority Associated Diagnoses Order S [facility] PHYSICAL THERAPY Referral Routine Ordered: documented as of this encounter Visit Diagnoses Diagnosis Paraplegia ([facility]) Paraplegia Osteoporosis ([facility]) Osteoporosis, unspecified Gait abnormality Abnormality of gait Back pain Backache, unspecified documented in this encounter
--- OUTSIDE RECORDS SUMMARY | 2022-07-04 15:10 | XMS_ITS | Encounter Summary ---
:1945 Author Organization [facility] Address [address] [address] Care Team Providers Name Role Phone Garry Neff MD Primary Care Provider Encounter Details Date Type Department Care Team Description 06/27/2012 Therapy [facility] Physical Trudi Raymundo, PT Therapy [address] [place] [address] [place] [address] [phone] Social History Tobacco Use Types Packs/Day Years [...] PHYSICAL THERAPY - DISCHARGE NOTE Carl Cullen [id number] 1945 Diagnosis: Paraplegia, osteoporosis, gait abnormality, back pain Payor: MEDICARE Plan: MEDICARE PART B ONLY Product Type: Medicare Physician: Dr. Randle Funding: Medicare / [facility] Vendor: [employer] ([employer]) Onset Date: date of referral: 12/18/11 Number of visits: 1 PT visit on 01/17/2012 for a wheelchair evaluation. Pt received the equipment from[employer] in April of 2012 which consisted of a new back for his chair Pt is now considered discharged from PT due to all goals met. Trudi Raymundo PT 06/27/2012 documented in this encounter Plan of Treatment Not on filedocumented as of this encounter Visit Diagnoses Not on filedocumented in this encounter Care Teams Turntable Worker Relationship Specialty Start Date End Date Garry Neff MD PCP - General Neurosurgery 04/24/12 04/14/13 [address] [place] [address] documented as of this encounter
--- OUTSIDE RECORDS SUMMARY | 2022-07-04 15:10 | XMS_ITS | Encounter Summary ---
:1945 Author Organization [facility] Address [address] [place] [address] Care Team Providers Name Role Phone Unavailable Primary Care Provider Unavailable Reason for Visit Reason Comments Consult, New Patient Chronic nerve pain Consult/Transfer Care - Closed Specialty Diagnoses / Procedures Referred By Contact Refer red To Contact May Randle MD [address] [place] [address] Referral ID Status Reason Start Date Expiration Date Visits Requ ested Visits Authorized [id number] Closed 01/14/2012 1 1 Encounter Details Date Type Department Care Team Description 01/30/2012 [facility] Visit [facility] [address] europathic pain Interventional Pain L, DO syndrome Management [address] (non-herpetic) [address] [place], [place] (Primary Dx) [place] [address] [phone] Social History Tobacco Use Types Packs/Day Years [...] 2000 S/p resection by Dr. Glasgow at [place] in 05/2000. However resection was incomplete due [...] of lower extremities. ??? Osteoporosis time study analyst wheelchair since 2006 ??? Leg fracture, left nontraumatic ??? Hypercholesteremia ??? Chronic constipation ??? Depression Past Surgical History Procedure Date ??? Appendectomy ??? Vasectomy* ??? Turp incl contrl postop bleed cmpl ??? Total knee replacement (91691) right ??? Ivc filter placement 1999 Medications: [...]
--- OUTSIDE RECORDS SUMMARY | 2022-07-04 15:10 | XMS_ITS | Encounter Summary ---
:1945 Author Organization [facility] Address [address] [place] [address] Care Team Providers Name Role Phone Garry Neff MD Primary Care Provider Reason for Visit Reason Comments Revisit Neuropathic pain syndrome Encounter Details Date Type Department Care Team Description 05/27/2012 Office Visit Specialty Center [address] acdave pain (Primary Interventional Pain L, DO Dx) Management [address] [place] [phone] Social History Tobacco Use Types Packs/Day Years [...] Patient Instructions Patient InstructionsSchZelalem tierney MD - 05/27/2012 12:01 PM CDT [...] unspecified documented in this encounter Care Teams Machine Cloth Trimmer Relationship Specialty Start Date End Date Garry Neff MD PCP - General Neurosurgery 04/24/12 04/14/[address] [place], [place] [address] [address] documented as of this encounter
--- OUTSIDE RECORDS SUMMARY | 2022-07-04 15:10 | XMS_ITS | Encounter Summary ---
:1945 Author Organization [facility] Address [address], [place] [address] Care Team Providers Name Role Phone Garry Neff MD Primary Care Provider Reason for Visit Reason Comments Refill Encounter Details Date Type Department Care Team Description 08/20/2012 Refill [facility] [address] Cohen, DO Refill Interventional Pain Management [address] [place] [address] [place] [address] [phone] Social History Tobacco Use Types Packs/Day Years [...] unspecified documented in this encounter Care Teams Director Building Relationship Specialty Start Date End Date Garry Neff MD PCP - General Neurosurgery 04/24/12 04/14/13 [address] [place] [address] documented as of this encounter
--- OUTSIDE RECORDS SUMMARY | 2022-07-04 15:10 | XMS_ITS | Encounter Summary ---
:1945 Author Organization [facility] Address [address] [address] Care Team Providers Name Role Phone Provider, Not On File Primary Care Provider Unavailable Reason for Visit Reason Onset Date Comments Medication Request 03/26/2012 Encounter Details Date Type Department Care Team Description 03/26/2012 Telephone Specialty Center [address] , Medication Request Interventional Pain DO Management [address] [place] [phone] Social History Tobacco Use Types Packs/Day Years [...] unspecified documented in this encounter Care Teams Dressmaking Teacher Relationship Specialty Start Date End Date Provider, Not On File PCP - General 03/03/12 04/23/12 [address] [place] [address] documented as of this encounter
--- OUTSIDE RECORDS SUMMARY | 2022-07-04 15:10 | XMS_ITS | Encounter Summary ---
:1945 Author Organization [facility] Address [address], [place] [address] Care Team Providers Name Role Phone Provider, Not On File Primary Care Provider Unavailable Reason for Visit Reason Onset Date Comments Medication Request 04/21/2012 Encounter Details Date Type Department Care Team Description 04/21/2012 Telephone Specialty Center 401 Garry Neff, Medication Request NeuroSurgery [address] [place] [address] [place] [address] [phone] (Wo rk) Social History Tobacco Use Types [...] on filedocumented in this encounter Care Teams Admitted Attorneys Relationship Specialty Start Date End Date Provider, Not On File PCP - General 03/03/12 04/23/12 [address] [place] [address] documented as of this encounter
--- OUTSIDE RECORDS SUMMARY | 2022-07-04 15:10 | XMS_ITS | Encounter Summary ---
:1945 Author Organization [facility] Address [address] [address] Care Team Providers Name Role Phone Garry Neff MD Primary Care Provider Reason for Visit Reason Onset Date Comments Refill 06/13/2012 Encounter Details Date Type Department Care Team Description 06/13/2012 Refill Specialty Center [address], DO Refill Interventional Pain Management [address] [place] [address] [place] [address] [phone] Social History Tobacco Use Types Packs/Day Years [...] unspecified documented in this encounter Care Teams Application Integration Specialist Relationship Specialty Start Date End Date Garry Neff MD PCP - General Neurosurgery 04/24/12 04/14/13 [facility] [place] [address] documented as of this encounter
--- OUTSIDE RECORDS SUMMARY | 2022-07-04 15:11 | XMS_ITS | Encounter Summary ---
:1945 Author Organization [facility] Address [address] [address] Care Team Providers Name Role Phone Unavailable [...] Chrtscr And Scan - 12/18/2011 12:54 PM INSPECTOR PENETRANT ECTOR PENETRANT documented in this encounter Plan of Treatment Not on filedocumented as of this encounter Visit Diagnoses Not on filedocumented in this encounter
--- OUTSIDE RECORDS SUMMARY | 2022-07-04 15:11 | XMS_ITS | Encounter Summary ---
:1945 Author Organization [facility] Address [address] [place] [address] Care Team Providers Name Role Phone Unavailable Primary Care Provider Unavailable Encounter Details Date Type Department Care Team Description 12/06/2011 Notes/Orders Specialty Center 401 Selene Johnson, RN NeuroSurgery [address] [place] [address] [place] [address] [phone] Social History Tobacco Use Types Packs/Day Years [...] plan. Selene Johnson RN 12/06/2011, 10:06 AM SSES FEED MIXER documented in this encounter Plan of Treatment Not on filedocumented as of this encounter Visit Diagnoses Not on filedocumented in this encounter
--- OUTSIDE RECORDS SUMMARY | 2022-07-04 15:11 | XMS_ITS | Encounter Summary ---
:1945 Author Organization [facility] Address [address] [address] Care Team Providers Name Role Phone Unavailable Primary Care Provider Unavailable Reason for Referral Specialty Diagnoses / Procedures Referred By Contact Refer red To Contact Garry Neff MD [address] [place] [address] Referral ID Status Reason Start Date Expiration [...] all the number on your insurance card. WEAVER Reason for Visit Reason Comments FOLLOW-UP, TEST RESULTS Encounter Details Date Type Department Care Team Description 10/25/2011 Office Visit Specialty Center Garry Neff Epe ndymoma (Primary 401 NeuroSurgery MD Jose Dx) [address] [facility] [address] [place] [address] [place], [place] [phone] (Wo rk) Social History Tobacco Use Types [...] Comments Blood Pressure 112/64 10/25/2011 1:05 PM TAPE WEAVER Pulse 74 10/25/2011 1:05 PM TAPE WEAVER Temperature 36.4 ??C (97.6 ??F) 10/25/2011 1:05 PM TAPE WEAVER Respiratory Rate 16 10/25/2011 1:05 PM TAPE WEAVER Oxygen Saturation - - Inhaled Oxygen Concentration [...] understanding. Please call the Neurosurgery/Spine Clinic at [phone] with any further questions or concerns. WEAVER documented in this encounter Progress Notes Garry Neff MD - 12/05/2011 9:05 AM CST Lucy Lanza PA-C, am acting as a electrician refinery for Dr. Neff, I am transcribing directly from notes Dr. Neff took during the clinic visit This is a dictation on Carl Cullen is a 66 yr old male [id number] 1945 Chief Complaint: Revisit to discuss lumbar [...] substitutions. Agree with above Garry Neff MD WEAVER documented in this encounter Plan of Treatment [...] AM CDT Narrative 04/24/2012 11:44 AM CDT [facility] THORACIC SPINE MRI 04/24/2012 INDICATION: Followup thoracic [...] note might be different from the original. [facility] THORACIC SPINE MRI 04/24/2012 INDICATION: Followup thoracic [...]
--- OUTSIDE RECORDS SUMMARY | 2022-07-04 15:11 | XMS_ITS | Encounter Summary ---
:1945 Author Organization [facility] Address [address], [place] [address] Care Team Providers Name Role Phone Unavailable Primary Care Provider Unavailable Reason for Visit Reason Onset Date Comments Medication Request 11/22/2011 Encounter Details Date Type Department Care Team Description 11/22/2011 Telephone Specialty Center 401 May Randle, Medication Request Physical Medicine MD 401 [facility]. [address] [place] [address] [place] [address] [phone] (Wo rk) Social History Tobacco Use Types [...] I spoke to Stanislav Lucas at the [facility], pt continues to be dispensed 20 [...] agreement with this plan. Cristy Carson RN LFISH CHECKER Linda Dwyer - 11/22/2011 2:31 PM CST Patient's called for a refill of patient's baclofen (AKA LIORESAL) 20 MG tablet. Please review and call her back at [phone] if there's any questions. LFISH CHECKER documented in this encounter Plan of Treatment Not on filedocumented as of this encounter Visit Diagnoses Not on filedocumented in this encounter
--- OUTSIDE RECORDS SUMMARY | 2022-07-04 15:11 | XMS_ITS | Encounter Summary ---
:1945 Author Organization [facility] Address [address] [address] Care Team Providers Name Role Phone Unavailable [...] Chrtscr And Scan - 11/19/2011 1:47 PM DIRECTOR REPORT CTOR REPORT documented in this encounter Plan of Treatment Not on filedocumented as of this encounter Visit Diagnoses Not on filedocumented in this encounter
--- OUTSIDE RECORDS SUMMARY | 2022-07-04 15:11 | XMS_ITS | Encounter Summary ---
:1945 Author Organization [facility] Address [address], [place] [address] Care Team Providers Name Role Phone Unavailable Primary Care Provider Unavailable Reason for Visit Reason Comments HIP PAIN Lt Hip pain Encounter Details Date Type Department Care Team Description 10/02/2011 Office Visit [facility] Satish Bowling Hip pain (Primary Orthopedics MD Bryn Dx) [address] [address] [place], [place] [phone] [id number] Social History Tobacco Use Types Packs/Day Years [...] 104.3 kg (230 lb) 10/02/2011 9:42 AM SHEEP SHEARER Height 177.8 cm (5' 10) 10/02/2011 9:42 AM SHEEP SHEARER Body Mass Index 33 10/02/2011 9:42 AM SHEEP SHEARER documented in this encounter Progress Notes Satish Bowling - 10/08/2011 8:59 AM SHEEP SHEARER P SHEARER Satish Bowling - 10/02/2011 10:08 AM CST Carl Cullen is a 66-year-old man with a history of paraplegia. He had bilateral knee fractures which underwent fixation earlier this year. Two months ago he was reaching for a heavy piece of equipment and noticed some posterior buttock pain extending up into his low back. He is also been evaluated by insurance marketing specialist has a recent MRI and follow [...] possible etiology. The patient will see his insurance marketing specialist soon and are he has an [...] basis. I have answered all his questions. P SHEARER documented in this encounter Plan of Treatment Not on filedocumented as of this encounter Results XR PELVIS AP (10/02/2011 9:36 AM SHEEP SHEARER) Anatomical Region Laterality Modality Pelvis Computed Radiography Specimen (Source) Anatomical Collection Method Collection Time Re ceived Time Location / / Volume Laterality 10/02/2011 9:36 AM SHEEP SHEARER Narrative 10/02/2011 3:53 PM SHEEP SHEARER XR PELVIS AP 1VW Oct 02, 2011 [...]
--- OUTSIDE RECORDS SUMMARY | 2022-07-04 15:11 | XMS_ITS | Encounter Summary ---
:1945 Author [facility] Address [address] [address] Care Team Providers Name Role Phone Unavailable Primary Care Provider Unavailable Encounter Details Date Type Department Care Team Description 11/30/2011 Notes/Orders Specialty Center 401 Selene Johnson RN NeuroSurgery [address] [place] [address] [place] [address] [phone] Social History Tobacco Use Types Packs/Day Years [...]
--- OUTSIDE RECORDS SUMMARY | 2022-07-04 15:11 | XMS_ITS | Encounter Summary ---
:1945 Author Organization [facility] Address [address] [address] Care Team Providers Name Role Phone Unavailable [...] Chrtscr And Scan - 11/30/2011 12:[address] CUTTER documented in this encounter Plan of Treatment Not on filedocumented as of this encounter Visit Diagnoses Not on filedocumented in this encounter
--- OUTSIDE RECORDS SUMMARY | 2022-07-04 15:11 | XMS_ITS | Encounter Summary ---
:1945 Author Organization [facility] Address [address], [place] [address] Care Team Providers Name Role Phone Unavailable Primary Care Provider Unavailable Reason for Referral Specialty Diagnoses / Procedures Referred By Contact Refer red To Contact George Bright DO [address] [place] [address] Referral ID Status Reason Start Date Expiration Date Visits Requ ested Visits Authorized Scheduling Instructions Your provider has recommended an appoint ment with a [facility] Physical Therapist. Please stop at the clinic angel ck out desk for assistance with scheduling or please choose one of the convenient loca tions to call and schedule your PT appointment: [facility] at [facility] [phone], [facility] at the [facility] [phone], [facility] PT in the [facility] [phone]. ORATE TREASURER Reason for Visit Reason Comments SHOULDER PAIN right shoulder x 1 month Encounter Details Date Type Department Care Team Description 10/30/2011 Office Visit Specialty Center George Bright C alcifying tendinitis of shoulder (Primary Dx); 435 Orthopedics DO Impingement syndrome, shoulder; Clinic [address] [place] [address] [address] [place] [address] [phone] (Wo rk) Social History Tobacco Use Types [...] begin to reduce your pain and swelling. ORATE TREASURER documented in this encounter Progress Notes George Bright - 11/06/2011 9:23 AM CORPORATE TREASURER ORATE TREASURER George Bright - 10/30/2011 11:14 AM CST [...] the physical therapy closer to home in [place], [place]. He says he understands this and [...] note was created using voice recognition software ([employer]) and templating. George Bright DO 10/30/2011, 11:14 AM ORATE TREASURER documented in this encounter Plan of Treatment Scheduled Referrals Name Type Priority Associated Diagnoses Order S chedule PT - PHYSICAL THERAPY Referral Routine Ordere d: 10/30/2011 [[id number]] documented as of this encounter Results RT SHOULDER GRASHEY/AX/OUTLET [[id number]] (10/30/2011 10:22 AM CORPORATE TREASURER) Anatomical Region Laterality Modality Upper Extremity, Shoulder Computed Radio graphy Specimen (Source) Anatomical Collection Method Collection Time Re ceived Time Location / / Volume Laterality 10/30/2011 10:22 AM CORPORATE TREASURER Narrative 10/30/2011 8:29 PM CORPORATE TREASURER RIGHT SHOULDER 3 VIEWS 10/30/2011 INDICATION: Shoulder [...]
--- OUTSIDE RECORDS SUMMARY | 2022-07-04 15:11 | XMS_ITS | Encounter Summary ---
:1945 Author Organization [facility] Address [address] [address] Care Team Providers Name Role Phone Unavailable Primary Care Provider Unavailable Reason for Visit Reason Onset Date Comments Medication Request 10/03/2011 Encounter Details Date Type Department Care Team Description 10/03/2011 Telephone Specialty Center 401 May Randle, Medication Request Physical Medicine MD 401 [facility]. [address] [place] [address] [place] [address] [phone] (Wo rk) Social History Tobacco Use Types [...]
--- OUTSIDE RECORDS SUMMARY | 2022-07-04 15:11 | XMS_ITS | Encounter Summary ---
:1945 Author Organization [employer] Address [address], [place] [address] Care Team Providers Name Role Phone Unavailable Primary Care Provider Unavailable Reason for Visit Reason Onset Date Comments REFERRAL REQUEST 10/02/2011 Encounter Details Date Type Department Care Team Description 10/02/2011 Telephone Specialty Center 401 May Randle MD REFERRAL REQUEST Physical Medicine [address] [place] [address] [place] [address] [phone] Social History Tobacco Use Types Packs/Day Years [...] eval. Order faxed to Jeffrey Acevedo at [phone]. May Bridges - 10/02/2011 6:31 PM CST Order entered-please print and send. May Randle MD IOVASCULAR OR NURSE Linda Dwyer - 10/02/2011 3:26 PM CST Patient's called and would like to get a referral to [facility] for patient's seat and back cushion. Please review and call her back at [phone]. IOVASCULAR OR NURSE documented in this encounter Plan of Treatment Not on filedocumented as of this encounter Visit Diagnoses Diagnosis Paraplegia (HRC) Paraplegia Back pain Backache, unspecified documented in this encounter
--- OUTSIDE RECORDS SUMMARY | 2022-07-04 15:11 | XMS_ITS | Encounter Summary ---
:1945 Author Organization [facility] Address [address] [address] Care Team Providers Name Role Phone Unavailable Primary Care Provider Unavailable Encounter Details Date Type Department Care Team Description 09/18/2011 Correspondence [facility] Rad[facility], MRI SAFETY SHEET [address] [facility] [place] [address] Social History Tobacco Use Types Packs/Day Years Used Date Smoking Tobacco: Never Smokeless Tobacco: Never Alcohol Use Standard Drinks/Week Comments No 0 (1 standard drink = 0.6 oz pure alcoho l) Sex Assigned at Date Recorded Male 08/06/2021 5:59 PM CDT documented as of this encounter Progress Notes [facility], PROVIDER - 09/25/2011 9:06 AM METROLOGY ENGINEER OLOGY ENGINEER documented in this encounter Plan of Treatment Not on filedocumented as of this encounter Visit Diagnoses Not on filedocumented in this encounter
--- OUTSIDE RECORDS SUMMARY | 2022-07-04 15:11 | XMS_ITS | Encounter Summary ---
:1945 Author Organization [facility] Address [address] [place] [address] Care Team Providers Name Role Phone Unavailable Primary Care Provider Unavailable Encounter Details Date Type Department Care Team Description 10/02/2011 Imaging [facility] [address] [place] [address] Social History Tobacco Use Types Packs/Day Years [...] 10/02/2011 9:36 AM Re sults for this VETERANS' COORDINATOR procedure are i n the results section. documented in this encounter Results XR PELVIS AP (10/02/2011 9:36 AM VETERANS' COORDINATOR) Anatomical Region Laterality Modality Pelvis Computed Radiography Specimen (Source) Anatomical Collection Method Collection Time Re ceived Time Location / / Volume Laterality 10/02/2011 9:36 AM VETERANS' COORDINATOR Narrative 10/02/2011 3:53 PM VETERANS' COORDINATOR XR PELVIS AP 1VW Oct 02, 2011 [...]
--- OUTSIDE RECORDS SUMMARY | 2022-07-04 15:11 | XMS_ITS | Encounter Summary ---
:1945 Author Organization [facility] Address [address] [address] Care Team Providers Name Role Phone Unavailable Primary Care Provider Unavailable Reason for Visit Reason Comments SHOULDER PAIN rt Encounter Details Date Type Department Care Team Description 12/06/2011 Office Visit Specialty Center George Bright C alcific tendinitis 435 Orthopedics DO of shoulder (Primary Clinic [address] [facility]) [address] [place] [address] [phone] (Wo rk) Social History Tobacco Use Types [...] desk to schedule, otherwise you can call [phone] to schedule MRI. 2. Recheck here in [...] sedation? If yes, you will need a transfer driver for the appointment. 8. Do you have sleep apnea? If yes, we cannot offer sedation, it would then need to be ordered by the Dr. 9. Have you ever been diagnosed with cancer? If yes, what kind? 10. Have you ever had previous surgery on the area or extremity of the body we are scanning? DRAWER IN HELPER documented in this encounter Progress Notes Paz [...] like to do this near their home [facility]. He will follow up in the clinic [...] all medical decision making. Paz Caldera PA-C DRAWER IN HELPER documented in this encounter Plan of Treatment Not on filedocumented as of this encounter Visit Diagnoses Diagnosis Calcific tendinitis of shoulder - Primar y Calcifying tendinitis of shoulder documented in this encounter
--- OUTSIDE RECORDS SUMMARY | 2022-07-04 15:11 | XMS_ITS | Encounter Summary ---
:1945 Author Organization [facility] Address [address] [address] Care Team Providers Name Role Phone Unavailable [...] Chrtscr And Scan - 01/10/2012 3:13 PM PROOFER PREPRESS FER PREPRESS documented in this encounter Plan of Treatment Not on filedocumented as of this encounter Visit Diagnoses Not on filedocumented in this encounter
--- OUTSIDE RECORDS SUMMARY | 2022-07-04 15:11 | XMS_ITS | Encounter Summary ---
:1945 Author Organization [facility] Address [address], [place] [address] Care Team Providers Name Role Phone Garry Neff MD Primary Care Provider Reason for Visit Reason Onset Date Comments THERAPY ORDERS 01/16/2012 Encounter Details Date Type Department Care Team Description 01/16/2012 Telephone [facility] ArnoldTrudi, PT THERAPY ORDERS Physical Therapy [address] [place] [address] [place] [address] [phone] Social History Tobacco Use Types Packs/Day Years [...] and not optimally postiioned. May Randle MD ANCE CONSULTANT Kati Sheriff - 01/16/2012 9:13 AM CST Pt was referred for a Physical Therapy mobility assessment on 12/17. Pt was scheduled for this PT Evalon 01/16. Due to the recent change in [place] and [place] guidelines this order is . If you feel ptwill still benefit from this assessment please update order. Thanks for your time. Kati Sheriff 01/16/2012, 9:13 AM ANCE CONSULTANT documented in this encounter Plan of Treatment Not on filedocumented as of this encounter Visit Diagnoses Not on filedocumented in this encounter Care Teams Electronic Warfare Technician Relationship Specialty Start Date End Date Garry Neff MD PCP - General Neurosurgery 04/24/12 04/14/13 [facility] [place] [address] documented as of this encounter
--- OUTSIDE RECORDS SUMMARY | 2022-07-04 15:11 | XMS_ITS | Encounter Summary ---
:1945 Author Organization [facility] Address [address] [address] Care Team Providers Name Role Phone Unavailable [...] Chrtscr And Scan - 12/10/2011 10:56 AM HELICOPTER PILOT COPTER PILOT documented in this encounter Plan of Treatment Not on filedocumented as of this encounter Visit Diagnoses Not on filedocumented in this encounter
--- OUTSIDE RECORDS SUMMARY | 2022-07-04 15:11 | XMS_ITS | Encounter Summary ---
:1945 Author Organization [facility] Address [address] [address] Care Team Providers Name Role Phone Unavailable Primary Care Provider Unavailable Reason for Referral Consult/Transfer Care - Closed Specialty Diagnoses / Procedures Referred By Contact Refer red To Contact May Randle MD [address] [place] [address] Referral ID Status Reason Start Date Expiration Date Visits Requ ested Visits Authorized [id number] Closed 12/17/2011 1 1 Scheduling Instructions Your provider has recommended an appoint ment with a [facility] Physical Therapist. Please stop at the clinic angel ck out desk for assistance with scheduling or please choose one of the convenient loca tions to call and schedule your PT appointment: [facility] Outpatient PT at [facility] [phone], [facility] Outpatient PT at the [facility] [phone], [facility] Outpatient PT in the [facility] [phone]. KEY REGAUGER Reason for Visit Reason Comments Revisit Muscle spasticity Encounter Details Date Type Department Care Team Description 12/17/2011 Office Visit Specialty Center May Randle Para plegia (Primary Dx); 401 Physical Kirsten Clemente MD Neurogenic bladder; [address] [facility] Neurogenic pain; [place] [address] [place], [place] Neurogenic bowel; [phone] [address] Constipation; [phone] Spasticity; (Work) Thoracic spinal cord injury Social [...] Comments Blood Pressure 102/59 12/17/2011 1:19 PM WHISKEY REGAUGER Pulse 99 12/17/2011 1:19 PM WHISKEY REGAUGER Temperature - - Respiratory Rate - - Oxygen Saturation - - Inhaled Oxygen Concentration - - Weight 107.7 kg (237 lb 6.4 oz) 12/17/2011 1:19 PM WHISKEY REGAUGER Height 175.3 cm (5' 9) 12/17/2011 1:19 PM WHISKEY REGAUGER Body Mass Index 35.06 12/17/2011 1:19 PM WHISKEY REGAUGER documented in this encounter Patient Instructions Patient InstructionsMay Randel MD - 12/17/2011 2:14 PM CST Daily Miralax Fiber in every meal Lots of fluids The night before bowel program use Dulcolax 2 tabs or MOM or castor oil Daily Senna at least two or up to 4 tabs Gradually wean baclofen as able KEY REGAUGER documented in this encounter Progress Notes May [...] years and initially had his rehabilitation at [facility]. At that point he was still ambulatory [...] intrathecal baclofen pump placed through the [facility]. Unfortunately he developed meningitis and did have [...] His primary care physician [facility]DrUgo GOSS at [facility] in [facility]. Past Medical History Diagnosis Date ??? 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 However resection was incomplete due [...] 1 at baseline. Lives with his in [place]. 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 At this point we can hopefully pursue this through his insurance 11 he will be scheduled back in three months however I I have asked him to call sooner if they have any questions 30/45 of today's minutes spent in education, counseling, and coordination of care. KEY REGAUGER documented in this encounter Plan of Treatment Scheduled Referrals Name Type Priority Associated Diagnoses Order S [facility] PHYSICAL THERAPY Referral Routine Ordered: documented as [...]
--- OUTSIDE RECORDS SUMMARY | 2022-07-04 15:11 | XMS_ITS | Encounter Summary ---
:1945 Author [facility] Address [address] [address] Care Team Providers Name Role Phone Unavailable [...] Chrtscr And Scan - 12/10/2011 10:55 AM CASING MACHINE OPERATOR NG MACHINE OPERATOR documented in this encounter Plan of Treatment Not on filedocumented as of this encounter Visit Diagnoses Not on filedocumented in this encounter
--- OUTSIDE RECORDS SUMMARY | 2022-07-04 15:11 | XMS_ITS | Encounter Summary ---
:1945 Author Organization [facility] Address [address] [place] [address] Care Team Providers Name Role Phone Unavailable Primary Care Provider Unavailable Encounter Details Date Type Department Care Team Description 10/30/2011 Imaging [facility] Specialty Center [address] [place] [address] Social History Tobacco Use Types [...] 10:22 AM Result s for this AP/Y/AXILLARY ENTERTAINMENT MUSICIAN procedure are in the results section. documented in this encounter Results RT SHOULDER GRASHEY/AX/OUTLET [[id number]] (10/30/2011 10:22 AM ENTERTAINMENT MUSICIAN) Anatomical Region Laterality Modality Upper Extremity, Shoulder Computed Radio graphy Specimen (Source) Anatomical Collection Method Collection Time Re ceived Time Location / / Volume Laterality 10/30/2011 10:22 AM ENTERTAINMENT MUSICIAN Narrative 10/30/2011 8:29 PM ENTERTAINMENT MUSICIAN RIGHT SHOULDER 3 VIEWS 10/30/2011 INDICATION: Shoulder [...]
--- OUTSIDE RECORDS SUMMARY | 2022-07-04 15:11 | XMS_ITS | Encounter Summary ---
:1945 Author Organization [facility] Address [address], [place] [address] Care Team Providers Name Role Phone Unavailable Primary Care Provider Unavailable Reason for Visit Reason Onset Date Comments Follow-up, NOS 11/28/2011 Encounter Details Date Type Department Care Team Description 11/28/2011 Telephone Specialty Center 401 Selene Johnson, RN Follow-up, NOS NeuroSurgery [address] [place] [address] [place] [address] [phone] Social History Tobacco Use Types Packs/Day Years Used Date Smoking Tobacco: Never Smokeless Tobacco: Never Alcohol Use Standard Drinks/Week Comments No 0 (1 standard drink = 0.6 oz pure alcoho l) Sex Assigned at Date Recorded Male 08/06/2021 5:59 PM CDT documented as of this encounter Nursing Notes Selene Johnson RN - 11/29/2011 10:14 AM CST Reviewed with Lucy Manager Grocery PAC and new order for Cymbalta 20 mg BID for a two week supply-received. Call placed and informed patient of the above and that he should call in 12-13 days to let us know if he is receiving more relief. He did verbalize understanding. Selene Johnson RN 11/29/2011, 10:13 AM R DIPPER Selene Johnson RN - 11/28/2011 4:17 PM CST Received a call from this patients Heather stating that she was calling in on Jeff behalf to explain that he has been on the cymbalta 20 mg for one week with little change in his comfort level, this scenario writer did explain that at this time we will review with Lucy and give them a call back with the plan. She did verbalize understanding. Selene Johnson RN 11/28/2011, 4:17 PM R DIPPER documented in this encounter Plan of Treatment Not on filedocumented as of this encounter Visit Diagnoses Not on filedocumented in this encounter
--- OUTSIDE RECORDS SUMMARY | 2022-07-04 15:11 | XMS_ITS | Encounter Summary ---
:1945 Author Organization [facility] Address [address] [address] Care Team Providers Name Role Phone Unavailable Primary Care Provider Unavailable Reason for Referral Consult/Transfer Care - Closed Specialty Diagnoses / Procedures Referred By Contact Refer red To Contact George Bright DO [address] [place] [address] Referral ID Status Reason Start Date Expiration Date Visits Requ ested Visits Authorized [id number] Closed 12/13/2011 1 1 Scheduling Instructions Your provider has recommended an appoint ment with a [facility] Physical Therapist. Please stop at the clinic angel ck out desk for assistance with scheduling or please choose one of the convenient loca tions to call and schedule your PT appointment: [facility] Outpatient PT at [facility] [phone], [facility] Outpatient PT at the [facility] [phone], [facility] Outpatient PT in the [facility] [phone]. LINE OPERATOR HELPER Reason for Visit Reason Comments Follow-up, NOS RT shoulder Encounter Details Date Type Department Care Team Description 12/13/2011 Office Visit Specialty Center George Bright C alcifying tendinitis of shoulder (Primary Dx); 435 Orthopedics DO Impingement syndrome, shoulder Clinic [address] [place] [address] [place] [address] [phone] (Wo rk) Social History Tobacco Use Types [...] 104.3 kg (230 lb) 12/13/2011 1:01 PM DRAGLINE OPERATOR HELPER Height 177.8 cm (5' 10) 12/13/2011 1:01 PM DRAGLINE OPERATOR HELPER Body Mass Index 33 12/13/2011 1:01 PM DRAGLINE OPERATOR HELPER documented in this encounter Patient Instructions Patient InstructionsCourtney Taylor LPN - 12/13/2011 1:51 PM CST 1. Ice and heat 2. Continue physical therapy- new order completed today 3. Follow up in 6-8 weeks Please stop at the check out desk to schedule a follow up appointment. Use this grid to write down your next appointment. DATE & TIME PROVIDER LOCATION ( ) [facility]: [address] [place] [address] ( ) [address] ( ) Other: ( ) [facility]: [address] [place] [address] ( ) [address] ( ) Other: If you received a prescription at your visit today and later feel you need a refill on that medication, please contact your pharmacy. If the pharmacy is not able to give you a refill, they will send your request to our clinic for you. LINE OPERATOR HELPER documented in this encounter Progress Notes George [...] note was created using voice recognition software ([employer]) and templating. George Bright DO 12/13/2011, 1:01 PM LINE OPERATOR HELPER documented in this encounter Plan of Treatment Scheduled Referrals Name Type Priority Associated Diagnoses Order S yash PT - PHYSICAL THERAPY Referral Routine Ordere d: 12/13/2011 [[id number]] documented as of this encounter Visit Diagnoses Diagnosis Calcifying tendinitis of shoulder - Prim adi Impingement syndrome, shoulder Other affections of shoulder region, not elsewhere classified documented in this encounter
--- OUTSIDE RECORDS SUMMARY | 2022-07-04 15:12 | XMS_ITS | Encounter Summary ---
:1945 Author Organization [facility] Address [address] [place] [address] Care Team Providers Name Role Phone Unavailable Primary Care Provider Unavailable Encounter Details Date Type Department Care Team Description 03/13/2011 Imaging [facility] [address] [place] [address] Social History Tobacco Use Types Packs/Day Years [...]
--- OUTSIDE RECORDS SUMMARY | 2022-07-04 15:12 | XMS_ITS | Encounter Summary ---
:1945 Author Organization [facility] Address [address] [place] [address] Care Team Providers Name Role Phone Unavailable Primary Care Provider Unavailable Reason for Visit Reason Comments FOLLOW-UP, TEST RESULTS Encounter Details Date Type Department Care Team Description 05/24/2011 Office Visit Specialty Center Garry Neff Epsalome ndymoma (Primary 401 NeuroSurgery X, Dx) [address] [place] [address] [place], [place] [phone] (Wo rk) Social History Tobacco Use Types [...] understanding. Please call the Neurosurgery/Spine Clinic at [phone] with any further questions or concerns. documented in this encounter Progress Notes Garry Neff X - 06/29/2011 2:47 PM CDT I, Lucy Parker PA-C, am acting as a lot worker for Dr. Neff, I am transcribing directly from notes Dr. Neff took during the clinic visit This is a dictation on Carl Cullen is a 66 yr old male [id number] 1945 Chief Complaint: Followup thoracic ependymoma Carl [...] with pt and answered all questions Lucy Crop Grain Or Livestock Farmer PA-C This note created using speech-recognition software and may contain unintended word substitutions. Agree with above Garry Neff MD documented in this encounter Plan of Treatment Not on filedocumented as of this encounter Results MR LUMBAR SPINE WITH/WITHOUT CONTRAST (09/18/2011 1:39 PM WHISKEY FILTERER) Anatomical Region Laterality Modality Spine, L-Spine, Skeletal Magnetic Resona nce Specimen (Source) Anatomical Collection Method Collection Time Re ceived Time Location / / Volume Laterality 09/18/2011 1:39 PM WHISKEY FILTERER Narrative 09/19/2011 3:59 PM WHISKEY FILTERER [facility] THORACIC SPINE MRI LUMBAR SPINE MRI [...] disease. Procedure Note Julien Anna - 09/20/2011 [facility] THORACIC SPINE MRI LUMBAR SPINE MRI [...] THORACIC SPINE WITH/WITHOUT CONTRAST (09/18/2011 1:38 PM WHISKEY FILTERER) Anatomical Region Laterality Modality Spine, T-Spine, L-Spine, C-Spine, Skeletal Magnetic Resonance Specimen (Source) Anatomical Collection Method Collection Time Re ceived Time Location / / Volume Laterality 09/18/2011 1:38 PM WHISKEY FILTERER Narrative 09/19/2011 3:59 PM [facility] THORACIC SPINE MRI LUMBAR SPINE [...] disease. Procedure Note Julien Anna - 09/20/2011 [facility] THORACIC SPINE MRI LUMBAR SPINE MRI [...]
--- OUTSIDE RECORDS SUMMARY | 2022-07-04 15:12 | XMS_ITS | Encounter Summary ---
:1945 Author Organization [facility] Address [address], [place] [address] Care Team Providers Name Role Phone Unavailable Primary Care Provider Unavailable Reason for Visit Reason Comments Refill Encounter Details Date Type Department Care Team Description 07/19/2011 Refill [facility] 401 May Randle MD Refill Physical Medicine [address] [place] [address] [place] [address] [phone] Social History Tobacco Use Types Packs/Day Years Used Date Smoking Tobacco: Never Smokeless Tobacco: Never Alcohol Use Standard Drinks/Week Comments No 0 (1 standard drink = 0.6 oz pure alcoho l) Sex Assigned at Date Recorded Male 08/06/2021 5:59 PM CDT documented as of this encounter Nursing Notes Cristy Carson RN - 08/06/2011 4:58 PM CDT Duplicate, baclofen was filled 07/19 per pt request, pharmacy request came afterwards. documented in this encounter Plan of Treatment Not on filedocumented as of this encounter Visit Diagnoses Not on filedocumented in this encounter
--- OUTSIDE RECORDS SUMMARY | 2022-07-04 15:12 | XMS_ITS | Encounter Summary ---
:1945 Author Organization [facility] Address [address] [address] Care Team Providers Name Role Phone Unavailable Primary Care Provider Unavailable Reason for Referral Specialty Diagnoses / Procedures Referred By Contact Refer red To Contact Satish Bowling MD [address] [place] [address] Referral ID Status Reason Start Date Expiration [...] Department Care Team Description 04/24/2011 Office Visit [facility] Satish Bowling Tibial plateau fracture (Primary Dx); Orthopedics MD Bryn Closed fracture of condyle of left femur ; [address] [facility] 435 [facility] Closed fracture of [place] [address] [place], [place] [phone] Social History Tobacco Use Types Packs/Day Years [...] knees AP and lateral. Satish Bowling MD MEAT CLERK:merari Dictated: 04/24/2011 11:17:59 Transcribed: 04/25/2011 06:01:52 Job: [id number] Doc: [id number] cc: documented in this encounter Plan of Treatment Scheduled Referrals Name Type Priority Associated Diagnoses Order S chedule PT - PHYSICAL THERAPY Referral Routine Ordere d: 04/24/2011 [[id number]] documented as of this encounter Results XR [...] Right knee and left knee 2 v [facility] 03/14/2011. RIGHT KNEE: Lateral plate and [...] Right knee and left knee 2 v [facility] 03/14/2011. RIGHT KNEE: ??Lateral plate and [...]
--- OUTSIDE RECORDS SUMMARY | 2022-07-04 15:12 | XMS_ITS | Encounter Summary ---
:1945 Author Organization [facility] Address [address], [place] [address] Care Team Providers Name Role Phone Unavailable Primary Care Provider Unavailable Encounter Details Date Type Department Care Team Description 09/05/2011 Therapy [facility] 401 May Randle MD Physical Medicine [address] [place] [address] [place] [address] [phone] Social History Tobacco Use Types Packs/Day Years Used Date Smoking Tobacco: Never Smokeless Tobacco: Never Alcohol Use Standard Drinks/Week Comments No 0 (1 standard drink = 0.6 oz pure alcoho l) Sex Assigned at Date Recorded Male 08/06/2021 5:59 PM CDT documented as of this encounter Progress Notes May Randle - 09/17/2011 6:59 AM ASSISTANT PROFESSOR OF GERMAN STANT PROFESSOR OF GERMAN documented in this encounter Plan of Treatment Not on filedocumented as of this encounter Visit Diagnoses Not on filedocumented in this encounter
--- OUTSIDE RECORDS SUMMARY | 2022-07-04 15:12 | XMS_ITS | Encounter Summary ---
:1945 Author Organization [facility] Address [address], [place] [address] Care Team Providers Name Role Phone Unavailable Primary Care Provider Unavailable Reason for Visit Reason Onset Date Comments THERAPY ORDERS 03/19/2011 Encounter Details Date Type Department Care Team Description 03/19/2011 Telephone [facility] Trudi Raymundo, PT THERAPY ORDERS Physical Therapy [address] [place] [address] [place] [address] [phone] Social History Tobacco Use Types Packs/Day Years [...] with a wider manual wheelchair that was diabetic educator weight to allow him more width to [...]
--- OUTSIDE RECORDS SUMMARY | 2022-07-04 15:12 | XMS_ITS | Encounter Summary ---
:1945 Author Organization [facility] Address [address] [place] [address] Care Team Providers Name Role Phone Unavailable Primary Care Provider Unavailable Encounter Details Date Type Department Care Team Description 05/24/2011 [facility] Special[facility] Scr eening for nephropathy Center MRI (Primary Dx) [address] [place] [address] Social History Tobacco Use Types [...] Organization Address City/State/ZIP Code Phon e Number [facility] [phone] [address] MR THORACIC SPINE WITH/WITHOUT CONTRAST [...]
--- OUTSIDE RECORDS SUMMARY | 2022-07-04 15:12 | XMS_ITS | Encounter Summary ---
:1945 Author Organization [facility] Address [address] [place] [address] Care Team Providers Name Role Phone Unavailable Primary Care Provider Unavailable Encounter Details Date Type Department Care Team Description 09/18/2011 [facility] Special[facility] e[facility] for nephropathy Center MRI (Primary Dx) [address] [place] [address] Social History Tobacco Use Types [...] Screening for Re sults for this POC PATIENT CARE TECHNICIAN INSTRUCTOR nephropathy procedure are i n the results section. MR LUMBAR SPINE Routine 09/18/2011 1:39 PM Result s for this W/WO IV CONT PATIENT CARE TECHNICIAN INSTRUCTOR procedure are i n the results section. documented in this encounter Results HS Radiology ONLY - CREATININE/GFR, WB POC (09/18/2011 1:45 PM PATIENT CARE TECHNICIAN INSTRUCTOR) P athologist Signature Creat Whole 1.1 0.66 - [facility] Blood 1.25 mg/dl GFR, Estimated >60.0 >60 [facility] ml/min/1.7 3m2 GFR, Est., If >60.0 >60 [facility] Black ml/min/1.7 3m2 Specimen Anatomical Collection Method Collection Time Receive d Time (Source) Location / / Volume Laterality 09/18/2011 1:45 PM 1 1:49 PATIENT CARE TECHNICIAN INSTRUCTOR PM PATIENT CARE TECHNICIAN INSTRUCTOR Radames Sanders MD LAB_1 Performing Organization Address City/State/ZIP Code Phon e Number [facility] [phone] [address] MR LUMBAR SPINE WITH/WITHOUT CONTRAST (09/18/2011 1:39 PM PATIENT CARE TECHNICIAN INSTRUCTOR) Anatomical Region Laterality Modality Spine, L-Spine, Skeletal Magnetic Resona nce Specimen (Source) Anatomical Collection Method Collection Time Re ceived Time Location / / Volume Laterality 09/18/2011 1:39 PM PATIENT CARE TECHNICIAN INSTRUCTOR Narrative 09/19/2011 3:59 PM PATIENT CARE TECHNICIAN INSTRUCTOR [facility] THORACIC SPINE MRI LUMBAR SPINE MRI 09/18/2011 [...] disease. Procedure Note Julien Anna - 09/20/2011 [facility] THORACIC SPINE MRI LUMBAR SPINE MRI 09/18/2011 [...]
--- OUTSIDE RECORDS SUMMARY | 2022-07-04 15:12 | XMS_ITS | Encounter Summary ---
:1945 Author Organization [facility] Address [address] [place] [address] Care Team Providers Name Role Phone Unavailable Primary Care Provider Unavailable Reason for Visit Reason Comments Follow-up, NOS LT knee, red spot around HW site Encounter Details Date Type Department Care Team Description 08/14/2011 Office Visit [facility] Satish Espinal Cellulitis (Primary Orthopedics MD Bryn Dx) [address] [place] [address] [place], [place] [phone] Social History Tobacco Use Types Packs/Day Years [...] listed below will be at: ( ) [facility] - [address] [place] [address] in [place], [place] ( ) [facility] - [address] [facility] in [place], [place] ( ) Other: Your next appointment [...]
--- OUTSIDE RECORDS SUMMARY | 2022-07-04 15:12 | XMS_ITS | Encounter Summary ---
:1945 Author Organization [facility] Address [address], [place] [address] Care Team Providers Name Role Phone Garry Neff MD Primary Care Provider Encounter Details Date Type Department Care Team Description 08/10/2011 Orders Only [facility] Quan [place], Osteoporosis (Primary Dx); 401 Endocrinology Hyperparathyroidism; Clinic 401 [facility] Vitamin D deficiency 401 [facility] [place] [address] [place], [place] [address] [phone] Social History Tobacco Use Types Packs/Day Years [...] deficiency documented in this encounter Care Teams Child Care Center Administrator Relationship Specialty Start Date End Date Garry Neff MD PCP - General Neurosurgery 04/24/12 04/14/13 [address] [place], [place] [id number] documented as of this encounter
--- OUTSIDE RECORDS SUMMARY | 2022-07-04 15:12 | XMS_ITS | Encounter Summary ---
:1945 Author [facility] Address [address], [place] [address] Care Team Providers Name Role Phone Unavailable Primary Care Provider Unavailable Encounter Details Date Type Department Care Team Description 05/24/2011 Correspondence [facility] Radiology, MRI SAFETY SHEET [address] [facility] Provider [place] [address] Social History Tobacco Use Types Packs/Day Years [...]
--- OUTSIDE RECORDS SUMMARY | 2022-07-04 15:12 | XMS_ITS | Encounter Summary ---
:1945 Author Organization [facility] Address [address] [address] Care Team Providers Name Role Phone Unavailable Primary Care Provider Unavailable Encounter Details Date Type Department Care Team Description 04/24/2011 Imaging [facility] [address] [place] [address] Social History Tobacco Use Types Packs/Day Years [...] Right knee and left knee 2 v [facility] 03/14/2011. RIGHT KNEE: ??Lateral plate and screw [...] Right knee and left knee 2 v [facility] 03/14/2011. RIGHT KNEE: Lateral plate and screw [...]
--- OUTSIDE RECORDS SUMMARY | 2022-07-04 15:12 | XMS_ITS | Encounter Summary ---
:1945 Author Organization [facility] Address [address] [address] Care Team Providers Name Role Phone Unavailable Primary Care Provider Unavailable Encounter Details Date Type Department Care Team Description 04/04/2011 Office Visit [facility] Trudi Raymundo PT Osteoporosis; Physical Therapy [address] Paraplegia [address] [place] [address] [phone] (Wo rk) Social History Tobacco Use Types [...] EVALUATION Carl Cullen [address] [place] [address] 1945 Estimated Body mass index is 33.43 kg/(m^2) as calculated from the following: Height as of this encounter: 5' 10(1.778 m). Weight as of this encounter: 233 lb(105.688 kg). 03/15/2011 Diagnosis: Paraplegia Payor: MEDICARE PART B ONLY [id number] Plan: MEDICARE PART B ONLY Product Type: Medicare Physician: Dr. Randle Funding: Medicare / V-Key Vendor: [employer] Seating [employer] Mob[employer] Onset Date: 03/13/11 MEDICAL [...] ??? HTN (Hypertension) 401.9AE ??? CAREPLAN: BACLOFEN 81984 ??? Osteoporosis 733.00C Past Medical History Diagnosis Date ??? 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 However resection was incomplete due [...] postop bleed cmpl ??? 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 Ivc filter placement 1999 Recent/Planned Surgeries: 03/13/11 PROCEDURE: 1. Plating of right lateral femoral condyle. 2. Plating of left lateral femoral condyle. 3. Plating of left medial tibial plateau fracture. Cardio-Respiratory Status: intact CURRENT SEATING/MOBILITY: (Type - Pilot Safety Inspector-Model) Chair: WIB Drive W/C, age: 3 1/2 years w/c [...] when evaluated in the hospital for a People Pattern manual chair on 03/20/11. Reason for replacement: needs better positioning. Funding source: Medicare A [employer] 9000 manual wheelchair that was 20 inches [...] driving. 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 [...] having some pressure along thighs in his [employer] 600 manual wheelchair that was 18 inches [...] would also be required. A manual wheelchair (inbound customer service representative weight than is Breezy) could potentially be [...] He does not want to pursue a inbound customer service representative weight manual wheelchair as he is living [...] Mr. Cullen ended up purchasing a new [employer] 600 20'x18' chair through [employer] in [place], [place]. A Comfort Qomuty Radius Back was purchased along with a [...] with your signature, to our clinic at [phone]. Your signature is required to continue treatment [...]
--- OUTSIDE RECORDS SUMMARY | 2022-07-04 15:12 | XMS_ITS | Encounter Summary ---
:1945 Author Organization [facility] Address [address] [place] [address] Care Team Providers Name Role Phone Unavailable Primary Care Provider Unavailable Encounter Details Date Type Department Care Team Description 03/13/2011 Imaging [facility] [address] [place] [address] Social History Tobacco Use Types Packs/Day Years [...]
--- OUTSIDE RECORDS SUMMARY | 2022-07-04 15:12 | XMS_ITS | Encounter Summary ---
:1945 Author Organization [facility] Address [address] [place] [address] Care Team Providers Name Role Phone Unavailable Primary Care Provider Unavailable Reason for Visit Reason Onset Date Comments QUESTIONS, GENERAL 09/13/2011 Encounter Details Date Type Department Care Team Description 09/13/2011 Telephone Specialty Center 401 Nina Johnson, QUESTIONS, GENERAL NeuroSurgery RN [address] [place] [address] [place] [address] [phone] (Wo rk) Social History Tobacco Use Types [...] scans-prescription sent to pharmacy of choice. This fiction writer did explain that once the MRI is completed will review and we will call with the plan.She did verbalize understanding.Selene Johnson RN 09/13/2011, 3:47 PM documented in this encounter Plan of Treatment Not on filedocumented as of this encounter Visit Diagnoses Not on filedocumented in this encounter
--- OUTSIDE RECORDS SUMMARY | 2022-07-04 15:12 | XMS_ITS | Encounter Summary ---
:1945 Author Organization [facility] Address [address] [place] [address] Care Team Providers Name Role Phone Unavailable Primary Care Provider Unavailable Reason for Visit Reason Comments OSTEOPOROSIS Encounter Details Date Type Department Care Team Description 08/07/2011 Office Visit Specialty Center Quan Ames Ost eoporosis (Primary Dx); 401 Endocrinology [facility] [address] [place] [address] Social History Tobacco Use Types Packs/Day [...] this subject. It is preferable to obtain 6669-4177 mg of calcium through diet rather than calciumsupplements. -start vitamin d (cholecalciferol) over the counter 2000 IU daily. -recheck today and in 1 year. May need to recheck sooner depending on labs today. Thank you for choosing Endocrinology Clinic at [facility] Treating physician: Quan Ames MD, News Gathering Technician. Follow up visit in 1 year (patient needs to schedule) PLEASE STOP AT THE CHECKOUT DESK TO MAKE YOUR APPOINTMENT OR TO PLACE IT ON WAITING LIST. For appointments call: [phone] For question call our nurses at [phone] Care Line (after 5 PM, weekends and holidays): [phone] Mail order pharmacy: [phone] or Labs: today and 1 year (patient needs to schedule) For lab only appointments (Daily 7 a.m.-9 p.m.): [phone] Radiology: 1 year (patient needs to schedule) [...] 2000 S/p resection by Dr. Glasgow at [place] in 05/2000. However resection was incomplete due [...] for spasticity of lower extremities. ??? 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 Leg fracture, left nontraumatic ??? Hypercholesteremia ??? Chronic constipation ??? Depression : History Social History ??? Marital Status: Spouse Name: N/A Number of Children: 2 ??? Years of Education: N/A Occupational History ??? [employer] ??? [employer] ??? retired/disability Social History Main Topics ??? Smoking status: Never Smoker ??? Smokeless tobacco: Never Used ??? Alcohol Use: No ??? Drug Use: No ??? Sexually Active: Yes -- Female partner(s) Other Topics Concern ??? Not on file Social History Narrative Wheelchair bound. Able to transfer from bed to wheelchair with assist of 1 at baseline. Lives with his in [place]. : Family History Problem Relation Age of [...] this subject. It is preferable to obtain 0355-6062 mg of calcium through diet rather than calciumsupplements. -start vitamin d (cholecalciferol) over the counter 2000 IU daily. -recheck today and in 1 year. May need to recheck sooner depending on labs today. Cc: Dr. Loretta Mayer M.D. [address] [address] I spent >25 minutes with patient, over [...] TESTOSTERONE,TOTAL,FREE & BIOAVAILABLE (08/07/2011 11:52 AM CDT) [facility] gist Method Time Signature Sex Horm [...] Quan Ames MD LAB_1 Performing Organization Address [facility] Phon e Number hi5 [facility] [address] [place] [phone] MAGNESIUM (08/07/2011 11:52 AM CDT) P athologist Signature Magnesium 1.9 1.6 - 2.3 [facility] mg/dl Specimen Anatomical Collection Method Collection Time Receive d Time (Source) Location / / Volume Laterality 08/07/2011 11:52 08/07/2011 AM CDT 12:05 PM CDT Quan Ames MD LAB_1 Performing Organization Address [facility] Phon e Number hi5 [facility] [address] [place] [phone] PHOSPHORUS (08/07/2011 11:52 AM CDT) P athologist Signature Phosphorus 3.0 2.5 - 4.5 [facility] mg/dl Specimen Anatomical Collection Method Collection Time Receive d Time (Source) Location / / Volume Laterality 08/07/2011 11:52 08/07/2011 AM CDT 12:05 PM CDT Quan Ames MD LAB_1 Performing Organization Address City/[facility]/ZIP Code Phon e Number hi5 [address] [phone] CREATININE / GFR (08/07/2011 11:52 AM CDT) [...] Quan Ames MD LAB_1 Performing Organization Address City/[facility]/ZIP [facility] Phon e Number [facility] [phone] [phone] ALBUMIN (08/07/2011 11:52 AM CDT) P athologist Signature Albumin 3.7 3.5 - 5.0 [facility] g/dl Specimen Anatomical Collection Method Collection Time Receive d Time (Source) Location / / Volume Laterality 08/07/2011 11:52 08/07/2011 AM CDT 12:05 PM CDT Quan Ames MD LAB_1 Performing Organization Address City/[facility]/ZIP [facility] Phon e Number [facility] [phone] [phone] (ABNORMAL) INTACT PTH + CALCIUM (08/07/2011 11:52 AM CDT) P athologist Signature Intact PTH 80.3 (H) 14.0 - [facility] 72.0 pg/mL Comment: Performed at [facility] Calcium 8.5 8.4 - 10.2 mg/dL [facility] Comment: Performed at [facility] Specimen Anatomical Collection Method Collection Time Receive d Time (Source) Location / / Volume Laterality 08/07/2011 11:52 08/07/2011 AM CDT 12:05 PM CDT Quan Ames MD LAB_1 Performing Organization Address [facility] Phon e Number [facility] [employer] [phone] [phone] (ABNORMAL) VITAMIN D 25-HYDROXY, TOTAL (V77.99) (08/07/2011 11:52 AM CDT) [facility] Method Time Signature Vitamin 27.0 (L) 30 - 80 [facility] D,25-OH, Tot ng/mL Comment: Deficiency: ??< 20 ng/mL Insufficiency: ??20-29 ng/mL Optimum Level: ??30-80 ng/mL Possible Toxicity: > 80 ng/mL Performed at [facility] Specimen Anatomical Collection Method Collection Time Receive d Time (Source) Location / / Volume Laterality 08/07/2011 11:52 08/07/2011 AM CDT 12:05 PM CDT Quan Ames MD LAB_1 Performing Organization Address [facility] Phon e Number [facility] [employer] [phone] [phone] documented in this encounter Visit Diagnoses Diagnosis Osteoporosis ([facility]) - Primary Osteoporosis, unspecified Hyperparathyroidism ([facility]) Hyperparathyroidism, unspecified documented in this encounter
--- OUTSIDE RECORDS SUMMARY | 2022-07-04 15:12 | XMS_ITS | Encounter Summary ---
:1945 Author Organization [facility] Address [address] [address] Care Team Providers Name Role Phone Unavailable [...]
--- OUTSIDE RECORDS SUMMARY | 2022-07-04 15:12 | XMS_ITS | Encounter Summary ---
:1945 Author Organization [facility] Address [address] [address] Care Team Providers Name Role Phone Unavailable [...]
--- OUTSIDE RECORDS SUMMARY | 2022-07-04 15:12 | XMS_ITS | Encounter Summary ---
:1945 Author Organization [facility] Address [address] [place] [address] Care Team Providers Name Role Phone Unavailable Primary Care Provider Unavailable Encounter Details Date Type Department Care Team Description 08/14/2011 [facility] [address] [place] [id number] Social History Tobacco Use Types Packs/Day Years [...] healing. No acute fracture or s ubluxation. Staish SAMSON GD documented in this encounter Visit Diagnoses Not on filedocumented in this encounter
--- OUTSIDE RECORDS SUMMARY | 2022-07-04 15:12 | XMS_ITS | Encounter Summary ---
:1945 Author Organization [facility] Address [address] [place] [address] Care Team Providers Name Role Phone Unavailable Primary Care Provider Unavailable Reason for Visit Reason Comments Post Hospital Discharge Follow Up Encounter Details Date Type Department Care Team Description 03/19/2011 Telephone Imitation Marble Mechanic Brittny Leyva, [facility] [address] - development and housing director [place] [id number] [facility] [address] [place], [place] [id number] [place] [address] [id number] Social History Tobacco Use Types Packs/Day Years [...] ORIF R femoral condyle and discharged from [facility] on 03/16/11 to home. Service and Experience questions: Was there anything [facility] could have done to make your hospital experience better? NO Have you already spoken with a patient passenger service representative from [facility] about your concern? not applicable Do you give permission to be called by a patient passenger service representative from [facility] to discuss your concernfurther? not applicable Patient notified they will be receiving a survey in the next 2 weeks regarding their stay and that this call does not replace answering the survey? Yes Spoke with patient. Name of reservoir caretaker and contact information N/A. Verbal permission obtained to talk to reservoir caretaker? not applicable Patient having difficulty with ADL???s? [...] to call Careline and number to call: [phone] or Confirmed using teach back method that patient and/or caregiver can state their medications and doses to take, discharge instructions, appointments they have scheduled, who to call if their condition worsens. Follow up Plan: Appointments made by hospital staff: 03/27/2011 9:45 AM Satish Bowling Orthopedics [phone] [facility] 04/04/2011 1:00 PM Trudi Raymundo Physical Therapy [facility] 05/10/2011 9:30 AM Mr 1a Radiology Mri [phone] [facility] 05/10/2011 10:20 AM Garry Neff Neurosurgery [phone] [facility] 05/24/2011 10:50 AM Quan Ames Endocrinology [phone] [facility] 05/30/2011 10:15 AM May Randle Physical Medicine [phone] [facility] PT. AWARE Appointments made today:PT. HAS APPT. [...]
--- OUTSIDE RECORDS SUMMARY | 2022-07-04 15:12 | XMS_ITS | Encounter Summary ---
:1945 Author Organization [facility] Address [address] [place] [address] Care Team Providers Name Role Phone Unavailable Primary Care Provider Unavailable Reason for Visit Reason Comments Revisit Spasticity Encounter Details Date Type Department Care Team Description 08/22/2011 Office Visit Specialty Center May Randle le spasticity (Primary Dx); 401 Physical Kirsten Clemente MD Paraplegia; [address] Neurogenic bladder; [place] [address] [place], [place] Neurogenic bowel; [phone] Osteoporosis; [phone] Depression (Work) Social History Tobacco Use Types [...] years and initially had his rehabilitation at [facility]. At that point he was still ambulatory [...] an intrathecal baclofen pump placed through the [facility]. Unfortunately he developed meningitis and did have [...] of medications which may be affecting his FINISHER [employer] and which may make him feel more [...] hour per day. He notes that his public health teacher placed him on Fosamax however they have [...] primary care physician isDr. Loretta G[facility] at [facility] in [facility]. Past Medical History Diagnosis Date ??? 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 However resection was incomplete due [...] 1 at baseline. Lives with his in [place]. Family History Problem Relation Age of Onset [...]
--- OUTSIDE RECORDS SUMMARY | 2022-07-04 15:12 | XMS_ITS | Encounter Summary ---
:1945 Author Organization [facility] Address [address], [place] [address] Care Team Providers Name Role Phone Unavailable Primary Care Provider Unavailable Reason for Referral Specialty Diagnoses / Procedures Referred By Contact Refer red To Contact Karl Mcclain MD [address] [place] [address] Referral ID Status Reason Start Date Expiration Date Visits Requ ested Visits Authorized Scheduling Instructions If an appointment with [facility] was advised and you have not been contacted to schedule that appointment w ithin 3 business days, please call [phone], Option 1 for assistance. Encounter Details Date Type Department Care Team Description 03/13/2011 - Hospital S9 Unassigned, Provider [address] [place] [address] Osteoporosis; 03/16/2011 Encounter 640 [facility] Karl Mcclain MD [address] [place] [address] DVT (deep venous thrombosis); [place], [place] Neurogenic bl adder; [address] HTN (hypertension); [phone] Spasm; Constipation; Hyperlipidemia; Unspecified ost eoporosis; Ac DVT/embl low ext NOS; Neurogenic blad swapnil, NOS; Unspecified ess ential hypertension; Abnormal involu [...] Pope RN - 03/16/2011 4:53 PM CDT [facility] HOSPITAL Discharge Note - Nursing Admission [...] Raquel Cook - 03/16/2011 1:26 PM CDT [facility] Orthopedic Discharge Note Patient Name: Carl Cullen [...] 2000 S/p resection by Dr. Glasgow at [place] in 05/2000. However resection was incomplete due [...] early for Xrays Provider: Dr Karl Mcclain [facility] Specialty Clinic: Orthopaedics; [phone]; [address] [place] [address] Scheduling Instructions: If an appointment with [facility] Orthopaedics was advised and you havenot been contacted to schedule that appointment within 3 business days, please call [phone], Option 1 for assistance. Order Specific Question [...] red, swollen and painful contact Orthopaedics at #[phone]. Continue dailydressing changes for wounds that continue to drain clear fluids, discontinue use of dressings when wound become dry and are no longer draining. Order Specific Question Answer Comments Wound Measurement - Type of wound surgical Location of wound bilateral lower extremities Contact Orthopedic Surgeon Order Comments: Contact Orthopedic Surgeon if considering discontinuing or changing the anticoagulation order. Contact information (name/clinic/phone number): [phone] When to Resume Normal Activities: Order Comments: [...] Order Comments: You will be back to [facility], at the Surgical Specialties Clinic , 1st. Floor at[address] [place], [place]. [phone] DR. MCCLAIN ON 03/27/11 9:15 AM FOR POST OPCHECK AND X RAY TAKEN Diet Order Comments: Regular Condition at Discharge: Stable Prognosis: Good Rehab Potential: Good Code Status: Full Code Lab Tests Order Comments: INR/PROTIME SCHEDULING INSTRUCTIONS (date/time): every Saturday and until INRreaches goal of 2-3.ROUTE RESULTS TO: .PMD Dr Loretta Mcmahan at [facility]. Please complete CBC-without diff one week after [...] of breath Community Resources NONE Contact Information [address] [address] For questions about your discharge instructions call the nursing unit : S9, Emergency & Urgently Needed Care: For emergencies call 911 and/or get medical help right away. If you are a [facility] member and have medical needs after clinic hours you may call the CareLineat [phone] or . Smoking and second-hand smoke exposure: Smoking damages blood vessels, reduces the oxygen in your blood and makes your heart beat too fast. If you smoke you should quit. Everyone should avoid second- hand smoke. If you would like further assistance after your discharge, please contact [phone] or visit [email or web address] Qu[employer] can offer further [...] weight will also be followed by the Machine Pie Maker when you go in for your treatment. [...] Jennifer Seth - 03/16/2011 11:15 AM CDT [facility] Care Management Discharge Note Admission Date/Time: [...] wheelchair with a follow up appointment at [facility] PT seating clinic as instructed. Jeff and his are happy to have this service and are pleased with how much more comfortable theloaner wheelchair is for Jeff. Jeff prefers to f/u at his clinic for INR draws and their local, [facility] physical therapy, for the out patient OT. [...] Report completed by VALERIE Peace/PHN, Pager Number [phone] --- End of Report --- AT Kehinde De La Cruz, OTR/L - 03/16/2011 10:11 AM CDT [facility] Occupational Therapy - Progress Note Treatment Summary: [...] from his to thread B legs and warehouse order puller hips while pt in supine. Pt [...] patient contact: 45 minutes [facility] Lee/Kateryna (pager [phone]) OT Dept #: [phone] - OT Weekend Pager #: [phone] - [facility] Main #: [phone] Cecile Browne Jagdish - 03/16/2011 8:40 AM [...] Medicine perspective (orders complete) Cecile Browne PA-C [facility] [phone] Raudel Starr - 03/16/2011 7:25 AM CDT [...] today Raudel Starr MD G2 Orthopaedic Resident [phone] Awilda Knox RN - 03/16/2011 3:32 AM CDT [facility] Progress Note (Nursing) Identify/Problem(s): Comfort Desired [...] Welsh RN - 03/15/2011 9:59 PM CDT [facility] Progress Note (Nursing) Identify/Problem(s): GI/pain Desired [...] Cruz OTR/L - 03/15/2011 3:45 PM CDT [facility] - [facility] Occupational Therapy - Progress Note Treatment Summary: [...] fit of pt's current manual w/c. Physician's commissary assistant and print shop manager Jennifer contacted to request order for [...] patient contact: 30 minutes [facility] Lee/Kateryna (pager [phone]) OT Dept #: [phone] - OT Weekend Pager #: [phone] - [facility] Main #: [phone] Bayron Bernstein RN - 03/15/2011 2:20 PM CDT [facility] Progress Note (Nursing) Identify/Problem(s): Pain/Comfort Constipation [...] Mitch Kirkland - 03/15/2011 1:10 PM CDT [facility] SWITCH FOREMAN NOTE - The pt received communion today. Fr. Mitch Kirkland [facility] Cecile Browne - 03/15/2011 11:47 AM CDT [facility] Medicine Progress Note Date of [...] management, activity per ortho Cecile Browne PA-C [facility] Medicine [phone] Raudel Starr - 03/15/2011 8:24 AM CDT [...] Hemogram ordered POD #1,2,3 - f/u with [facility] in 2 wks. -Dispo: will need 3-4 more days of OT Raudel Starr MD G2 Orthopaedic Resident [phone] Awilda Knox RN - 03/15/2011 4:04 AM CDT [facility] HOSPITAL Progress Note (Nursing) Identify/Problem(s): Comfort [...] Welsh RN - 03/14/2011 11:53 PM CDT [facility] Progress Note (Nursing) Identify/Problem(s): Mobility/pain [...] Bernstein RN - 03/14/2011 6:04 PM CDT [facility] Progress Note (Nursing) Identify/Problem(s): Pain/Comfort Mobility [...] Cecile Browne - 03/14/2011 6:00 PM CDT [facility] Medicine Progress Note Date of [...] Asymptomatic. Monitor for tachycardia/hypotension. Cecile Browne PA-C [facility] Medicine [phone] Jennifer Seth - 03/14/2011 2:21 PM CDT [facility] HOSPITAL Care Management Advertising Rep Initial Assessment Admission Date/Time: 03/13/2011 5:03 PM Attending MD: Karl Mcclain Data Carl Cullen was referred to this Advertising Rep for discharge planning. Chart reviewed, discussed with interdisciplinary team, as well as with patient and family. 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 Insurance: Payor: MEDICARE PART B ONLY [id number] Plan: MEDICARE PART B ONLY Product Type: Medicare Current Living Situation: Patient lives with their spouse. Support System: / family Services Involved: Jeff has been using [facility] physical therapy in [facility]. Additional Data: PMD Dr Loretta Mcmahan at [facility]. Coordination of Care and Referrals: Provided patient/family [...] a regular wheel chair, Stander, new step production floater and a transfer board. Jeff and his have paid out of pocket for most equipment with only the electric wheelchair being covered by medicare 3 years ago. Sheron mentioned that his regular wheelchair they obtained via an [employer] and Jeff has never been assessed for [...] W/C seating appointment is needed. Jeff uses [facility] [employer] for urinary catheters and supplies. Jeff has not been to a TCU in the past and prefers to d/c home. PMD is Dr Mcmahan at [facility] ( usually every three weeks for INR draws) PM&R is Dr Randle at [facility]. Plan Anticipated Discharge Date: TBD Anticipated Discharge Plan: home with family? Plan for Follow Up: Will follow Report completed by VALERIE Peace/PHN, Pager Number [phone] --- End of Report --- MahamedrRaudel - 03/14/2011 8:09 AM CDT Orthopaedic Surgery [...] wks. Raudel Starr MD G2 Orthopaedic Resident [phone] Awilda Knox, RN - 03/14/2011 2:38 AM CDT [facility]OSPITAL Progress Note (Nursing) Identify/Problem(s): Comfort [...] Knox RN - 03/14/2011 12:23 AM CDT [facility]. MD Notified Note Name of [...] Espinal RN - 03/13/2011 11:21 PM CDT [facility] Progress Note (Nursing) Identify/Problem(s): S/Post-op Desired [...] Voss PharmD - 03/13/2011 7:43 PM CDT [facility] Clinical Pharmacy Medication Reconciliation Note Medication [...] resumed. PHARMACIST NAME: Florinda Voss Phone/Pager #: [phone] --- End of Report --- documented in this encounter Procedure Notes [facility] ANESTHESIA, PROVIDER - 03/17/2011 3:44 AM CDT [facility], PROVIDER - 03/17/2011 3:44 AM CDTAssociated Order(s): EKG IP; EKG IP [facility] ANESTHESIA, PROVIDER - 03/17/2011 3:44 AM CDT [facility] ANESTHESIA, PROVIDER - 03/14/2011 4:52 PM CDT [facility] ANESTHESIA, PROVIDER - 03/14/2011 4:52 PM CDT [facility] ANESTHESIA, PROVIDER - 03/14/2011 4:52 PM [...] and has been doing various stretching exercises qilhnhcgzrgjqii-pm-brni rotation stretching of his hips. That started [...] estimate is 250 mL. Karl Mcclain MD SALES PROJECT MANAGER:nelly Dictated: 03/13/2011 18:10:30 Transcribed: 03/13/2011 19:26:48 Job: [id number] Doc: [id number] cc: Raquel Cook - 03/13/2011 5:12 PM CDT [facility] Brief Operative Note Name: Carl Cullen Age: 65 yr Gender: male Attending Provider: Karl Mcclain Date: 03/13/2011 Preop dx: Left tibia plateau, right femoral condyle, left femoral condyl fractures Postop dx: same Procedure: ORIF Left tibia plateau, ORIF right femoral condyle, ORIF left femoral condyl Surgeon: Dr Karl Mcclain Sod Stripper: Raquel Cook PA-C Anesthesia: General IVF: 1800 [...] case. Raquel Cook PA-C 03/13/2011, 5:12 PM [phone] pager documented in this encounter Consult Notes Esmer Cruz - 03/13/2011 11:19 PM CDTAssociated Order(s): MEDICINE INPT CONSULT [facility] Medicine Consultation Note (MD) Date of service: [...] 1999 S/p resection by Dr. Glasgow at [place] in 05/2000. However resection was incomplete due [...] postop bleed cmpl ??? Total knee replacement (33142) right ??? Ivc filter placement 1999 Family History Problem Relation Age of Onset ??? Cancer, Colon Mother ??? Cancer, Other Brother brother with throat cancer ??? Cancer, Breast Sister ??? Osteoporosis Mother no history of fractures Social History Occupational History ??? [employer] ??? [place] [employer] ??? retired/disability Social History Main Topics ??? [...] Report Completed by: Esmer Cruz PA-C Pager: [phone] documented in this encounter OR Notes H&P [...] Karl Mcclain MD LAB_1 Performing Organization Address [facility]/ZIP [facility] Phon [place] Number [address] [address] [place], [place] [phone] POTASSIUM (03/16/2011 6:56 AM CDT) P athologist Signature Potassium 4.1 3.5 - 5.3 [facility] mmol/L Specimen Anatomical Collection Method Collection Time Receive d Time (Source) Location / / Volume Laterality 03/16/2011 6:56 AM 1 7:00 CDT AM CDT Karl Mcclain MD LAB_1 Performing Organization Address [facility] Phon e Number [address] [address] [place], [place] [phone] (ABNORMAL) INR/Protime (daily while on warfarin) (03/15/2011 6:43 AM CDT) P athologist Signature Protime 16.1 (H) 12.0 - 14.5 [facility] sec INR 1.3 [facility] Specimen Anatomical Collection Method Collection Time Receive d Time (Source) Location / / Volume Laterality 03/15/2011 6:43 AM 1 7:07 CDT AM CDT Karl Mcclain MD LAB_1 Performing Organization Address [facility] Phon e Number [address] [address] [place], [place] [phone] (ABNORMAL) Hemogram with Platelets (POD #1, 2, [...] Organization Address City/State/ZIP Code Phon e Number [address] [address] [place], [place] [phone] XR KNEE AP/LAT 2 VIEWS RIGHT (03/14/2011 [...] Organization Address City/State/ZIP Code Phon e Number [address] [address] [place], [place] [phone] BASIC METABOLIC PANEL (03/14/2011 7:07 AM CDT) [...] Karl Mcclain MD LAB_1 Performing Organization Address City/[facility] Phon e Number [address] [address] [place], [place] [phone] (ABNORMAL) Hemogram with Platelets (POD #1, 2, [...] Karl Mcclain MD LAB_1 Performing Organization Address [facility] Phon e Number [address] [address] [place], [place] [phone] GLUCOSE, WHOLE BLOOD POC (03/13/2011 9:48 PM CDT) P athologist Signature Glucose, Whole 114 70 - 180 [facility] Blood mg/dl Comment: Point of Care Testing RN Notified Specimen Anatomical Collection Method Collection Time Receive d Time (Source) Location / / Volume Laterality 03/13/2011 9:48 PM 1 1:26 CDT AM CDT Karl Mcclain MD LAB_1 Performing Organization Address City/State/ZIP Code Phon e Number [address] [address] [place], [place] [phone] XR C-ARM 30-59 MIN (03/13/2011 5:00 PM [...] TUBE ([facility] ONLY) (03/13/2011 12:51 PM CDT) [facility] Method Time Signature BB Hold Tube Blood Bank [facility] save tube expires in 3 days Specimen Anatomical Collection Method Collection Time Receive d Time (Source) Location / / Volume Laterality 03/13/2011 12:51 03/13/2011 PM CDT 12:58 PM CDT Karl Mcclain MD LAB_1 Performing Organization Address [facility] Phon e Number [address] [address] [place], [place] [phone] INR/PROTIME (03/13/2011 12:40 PM CDT) athologist Signature Protime 13.2 12.0 - 14.5 [facility] sec INR 1.0 [facility] Specimen Anatomical Collection Method Collection Time Receive d Time (Source) Location / / Volume Laterality 03/13/2011 12:40 03/13/2011 PM CDT 12:55 PM CDT Raquel Cook PA-C LAB_1 Performing Organization Address [facility] Code Phon e Number [address] [address] [place], [place] [phone] TYPE & Crossmatch (units available for 3 days) (03/13/2011 12:40 PM CDT) [facility] Method Time Signature ABO/RH(D) A NEGATIVE [facility] Antibody NEGATIVE [facility] Screen Crossmatch 03/16/2011 [facility] Expires Specimen Anatomical Collection Method Collection Time Receive d Time (Source) Location / / Volume Laterality 03/13/2011 12:40 03/13/2011 PM CDT 12:56 PM CDT Latrice Triana MD LAB_1 Performing Organization Address City/[facility]/[place]IP [facility] [place] Number [address] [address] [place], [place] [phone] (ABNORMAL) HEMOGRAM/PLTS (03/13/2011 12:40 PM CDT) P [...] Organization Address City/State/ZIP Code Phon e Number [address] [address] [place], [place] [phone] EKG IP (03/13/2011 12:00 AM CDT) Specimen (Source) Anatomical Location Collection Method / Collectio n Time Received Time / Laterality Volume 03/13/2011 Narrative This result has an attachment that is no t available. Transcriptions [facility], PROVIDER - 03/17/2011 3:44 AM C [...] SEATING/MOBILITY EVALUATION Carl Cullen [address] [facility] [id number] 1945 Estimated Body mass index is 33.43 kg/(m^2) as calculated from the following: Height as of this encounter: 5' 10(1.778 m). Weight as of this encounter: 233 lb(105.688 kg). 03/15/2011 Karl Mcclain MD [address] [place] [address] Diagnosis: Paraplegia Payor: MEDICARE PART B ONLY [id number] Plan: MEDICARE PART B ONLY Product Type: Medicare Physician: referring physician Karl Mcclain MD (orthopedics) Funding: Medicare / Tricare Vendor: [employer] Seating and Mobility Onset Date: 03/13/11 MEDICAL HISTORY: History/Progression: He has a history of thoracic ependymoma for a number of years, initial rehab [facility]. No customized seating at any point and [...] ??? HTN (Hypertension) 401.9AE ??? CAREPLAN: BACLOFEN 22763 ??? Osteoporosis 733.00C Past Medical History Diagnosis Date ??? 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 Glasgow at [place] in 05/2000. However resection was incomplete due [...] postop bleed cmpl ??? Total knee replacement (09577) right ??? Ivc filter placement 1999 Recent/Planned Surgeries: 03/13/11 PROCEDURE: 1. Plating of right lateral femoral condyle. 2. Plating of left lateral femoral condyle. 3. Plating of left medial tibial plateau fracture. Cardio-Respiratory Status: intact CURRENT SEATING/MOBILITY: (Type - Psychiatric Social Worker Supervisor-Model) Chair: Sensorin W/C, age: 3 1/2 years w/c Cushion: [...] driving. 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 [...] of his back pain. A manual wheelchair (high density talc coater operator weight than is Breezy) could potentially be appropriate. Regardless, he should have an opportunity to try some various rehab seating options before a final decision is made and thus a follow up outpatient PT evaluation for seating is necessary. Goal: 1. Patient to have a wider manual wheelchair with pressure relieving cushion that is high density talc coater operator weight to allow for better positioning [...] Cruz, OTR/L - 03/14/2011 3:29 PM CDT [facility] Occupational Therapy ADL Evaluation Diagnosis: [...] 2000 S/p resection by Dr. Glasgow at [facility] in 05/2000. However resection was incomplete due [...] in chair. Will follow up with family, rehabilitation case coordinator and therapy dept re: w/c. Assessment/Recommendations: The [...] La Cruz OTR/L (pager) OT Dept #: [phone] - OT Weekend Pager #: [phone] - [facility] Main #: [phone] --- End of Report --- Initial Assessments - Lisette Espinal RN - 03/13/2011 8:40 PM CDT [facility] Med-Surg / ICU / Rehab / [...] after hospitalization?: self and () Heather gracia phone-[phone] Recent Exposure to Communicable Diseases Within the [...] from returning to independent or assisted living PSYCHOSOCIAL/SPIRITUAL/MU-ISM/CULTURAL/ABUSE/CHEMICAL Suicide Health Inventory Do you currently have [...] issues for which support from the hospital guard chief might be helpful to patient and/or family? [...] Lines & Tubes: 1 Medications (CV or PERFORMANCE IMPROVEMENT SPECIALIST): 2 Falls Risk Score: (0-4 Low) (5-10 [...] Tablets sodium phosphate (aka FLEET) enema 1 Ella ma Given 03/15/2011 10:30 AM CDT 1 [...] Provider: Awilda Knox RN)0800 (Given - Provider: Bayrno Bernstein RN)1400 (Given - Provider: Bayron Bernstein [...] 0800 (Given - Provider: Edith Pope, VALERIE) 2 Tab, Oral, DAILY, First dose on [...] 30 mL 1020 (Given - Provider: Bayron Bernstien, RN) 30 mL, Oral, DAILY PRN, Starting 03/13 at 1932, Until Discontinued, Constipation sodium phosphate (aka FLEET) enema 1 Enema (COMPLETED) 1030 (Given - Provider: Bayron Bernstein, RN) 1 Enema, Rectal, ONCE PRN, 1 dose, Start ing Sat03/13/11 at 1932, Until Discontinued, Constipation documented in this encounter
--- OUTSIDE RECORDS SUMMARY | 2022-07-04 15:12 | XMS_ITS | Encounter Summary ---
:1945 Author Organization [facility] Address [address] [place] [address] Care Team Providers Name Role Phone Unavailable Primary Care Provider Unavailable Reason for Visit Reason Comments POST-OP,EXAM Encounter Details Date Type Department Care Team Description 03/27/2011 Office Visit [facility] Satish Bowling Fracture of femoral condyle, left, closed (Primary Dx); Orthopedics MD Bryn Fracture of femoral condyle, right, clos ed; [address] [place] [address] [place] [address] [place], [place] [phone] [address] Social History Tobacco Use Types Packs/Day Years [...] TIME PROVIDER LOCATION ( ) [facility]: [address] [place] [address] ( ) [address] [place], [place] ( ) Other: ( ) [facility]: [address] [place] [address] ( ) [address] [place], [place] ( ) Other: If you received [...] swelling and no erythema on the right. Satish Bowling MD RESTAURANT DELIVERY DRIVER:hailey Dictated: 03/27/2011 10:06:53 Transcribed: 03/27/2011 10:13:44 Job: [id number] Doc: [id number] cc: documented in this encounter Plan of [...]
--- OUTSIDE RECORDS SUMMARY | 2022-07-04 15:12 | XMS_ITS | Encounter Summary ---
:1945 Author Organization [facility] Address [address] [place] [address] Care Team Providers Name Role Phone Unavailable Primary Care Provider Unavailable Reason for Visit Reason Comments Revisit Paraplegia Encounter Details Date Type Department Care Team Description 05/30/2011 Office Visit [facility] May Randle ticity (Primary Dx); 401 Physical Kirsten Clemente MD Paraplegia; [address] Neurogenic bladder; [place] [address] [place], [place] DVT (deep venous thrombosis) ; [phone] [address] Ependymoma Social History Tobacco Use Types Packs/Day [...] years and initially had his rehabilitation at [facility]. At that point he was still [...] intrathecal baclofen pump placed through the [facility]. Last year he developed meningitis and did [...] continues in outpatient therapy twice weekly at [facility]. While he was in the hospital he [...] physician isDr. Loretta GOSS and Hafsa in [facility]. Past Medical History Diagnosis Date ??? Ependymoma 1999 S/p resection by Dr. Glasgow at [place] in 05/2000. However resection was incomplete due [...] (AKA MIACALCIN) 200 UNIT/ACT nasal solution 1 [place] by Alternating nostrils route daily. ??? Calcium-Vitamin [...] 1 at baseline. Lives with his in [place]. Family History Problem Relation Age of Onset [...]
--- OUTSIDE RECORDS SUMMARY | 2022-07-04 15:12 | XMS_ITS | Encounter Summary ---
:1945 Author Organization [facility] Address [address], [place] [address] Care Team Providers Name Role Phone Garry Neff MD Primary Care Provider Encounter Details Date Type Department Care Team Description 08/07/2011 Orders Only [facility] [place], Unspecified [address] Endocrinology osteoporosis Clinic [address] (Primary Dx) [address] [place] [address] [place] [address] [phone] Social History Tobacco Use Types Packs/Day Years [...] unspecified documented in this encounter Care Teams Back Up Machine Operator Relationship Specialty Start Date End Date Garry Neff MD PCP - General Neurosurgery 04/24/12 04/14/[address] [place] [address] documented as of this encounter
--- OUTSIDE RECORDS SUMMARY | 2022-07-04 15:12 | XMS_ITS | Encounter Summary ---
:1945 Author Organization [facility] Address [address] [place] [address] Care Team Providers Name Role Phone Unavailable Primary Care Provider Unavailable Encounter Details Date Type Department Care Team Description 03/13/2011 Imaging [facility] [address] [place] [address] Social History Tobacco Use Types Packs/Day Years [...]
--- OUTSIDE RECORDS SUMMARY | 2022-07-04 15:12 | XMS_ITS | Encounter Summary ---
:1945 Author Organization [facility] Address [address], [place] [address] Care Team Providers Name Role Phone Unavailable Primary Care Provider Unavailable Reason for Visit Reason Onset Date Comments Medication Request 07/19/2011 Encounter Details Date Type Department Care Team Description 07/19/2011 Telephone Specialty Center [address], Medication Request Physical Medicine MD 401 [facility]. [address] [place] [address] [place] [address] [phone] (Wo rk) Social History Tobacco Use Types [...]
--- OUTSIDE RECORDS SUMMARY | 2022-07-04 15:13 | XMS_ITS | Encounter Summary ---
:1945 Author Organization [facility] Address [address] [place] [address] Care Team Providers Name Role Phone Unavailable Primary Care Provider Unavailable Encounter Details Date Type Department Care Team Description 02/08/2011 [facility] Specialty Scr eening for nephropathy Center MRI (Primary Dx) [address] [place] [address] Social History Tobacco Use Types [...] City/State/ZIP Code Phon e Number [facility] [phone] [address] MR THORACIC SPINE WITH/WITHOUT CONTRAST (02/08/2011 10:57 AM CDT) Anatomical Region Laterality Modality Spine, T-Spine, L-Spine, C-Spine, Skeletal Magnetic Resonance Specimen (Source) Anatomical Collection Method Collection Time Re ceived Time Location / / Volume Laterality 02/08/2011 10:57 AM CDT Narrative 02/10/2011 2:38 PM CDT [facility] THORACIC SPINE MRI ? 02/08/2011 INDICATION: Followup [...] Procedure Note PrestonJulien correa Eren - 02/10/[address] [facility] THORACIC SPINE MRI 02/08/2011 INDICATION: Followup thoracic [...]
--- OUTSIDE RECORDS SUMMARY | 2022-07-04 15:13 | XMS_ITS | Encounter Summary ---
:1945 Author Organization [facility] Address [address], [place] [address] Care Team Providers Name Role Phone Garry Neff MD Primary Care Provider Encounter Details Date Type Department Care Team Description 03/02/2011 Prep for Surgery [facility] Inessa Cook, Orthopedics LYDIA [address] [place] [address] Social History Tobacco Use Types Packs/Day Years Used Date Smoking Tobacco: Never Alcohol Use Standard Drinks/Week Comments No 0 (1 standard drink = 0.6 oz pure alcoho l) Sex Assigned at Date Recorded Male 08/06/2021 5:59 PM CDT documented as of this encounter Plan of Treatment Not on filedocumented as of this encounter Visit Diagnoses Not on filedocumented in this encounter Care Teams Stock Pitcher Relationship Specialty Start Date End Date Garry Neff MD PCP - General Neurosurgery 04/24/12 04/14/13 [address] [place] [address] documented as of this encounter
--- OUTSIDE RECORDS SUMMARY | 2022-07-04 15:13 | XMS_ITS | Encounter Summary ---
:1945 Author Organization [facility] Address [address] [place] [address] Care Team Providers Name Role Phone Unavailable Primary Care Provider Unavailable Reason for Visit Reason Comments OSTEOPOROSIS Encounter Details Date Type Department Care Team Description 03/06/2011 Office Visit Specialty Center Quan Ames Ost eoporosis (Primary Dx); 401 Endocrinology MD Karen Benign tumor of thoracic site Clinic [address] [place] [address] [phone] (Wo rk) Social History Tobacco Use Types [...] Thank you for choosing Endocrinology Clinic at [facility] Treating physician: Quan Ames MD, Halver Machine Operator. Follow up visit in 3 months (patient needs to schedule) PLEASE STOP AT THE CHECKOUT DESK TO MAKE YOUR APPOINTMENT OR TO PLACE IT ON WAITING LIST. For appointments call: [phone] For question call our nurses at [phone] Care Line (after 5 PM, weekends and holidays): [phone] Mail order pharmacy: [phone] or Labs: today and 3 months (patient needs to schedule) For lab only appointments (Daily 7 a.m.-9 p.m.): [phone] Radiology: none (patient needs to schedule) TEST [...] in consultation at the request of Dr. Neff for osteoporosis. He has a history of [...] 2000 S/p resection by Dr. Glasgow at [facility] in 05/2000. However resection was incomplete due [...] History ??? [employer] ??? [place] long term ??? retired/disability Social History Main Topics ??? Smoking status: Never Smoker ??? Smokeless tobacco: Not on file ??? Alcohol Use: No ??? Drug Use: No ??? Sexually Active: Yes -- Female partner(s) Other Topics Concern ??? Not on file Social History Narrative Wheelchair bound. Able to transfer from bed to wheelchair with assist of 1 at baseline. Lives with his in [place]. : Family History Problem Relation Age of [...] 3 months. Cc: Dr. [place] [address] documented in this encounter Nursing Notes 03/06/2011 [...] Organization Address City/State/ZIP Code Phon e Number [facility] [phone] [facility] [address] [address] (ABNORMAL) LIVER PANEL(HEPATIC FUNCTION PANEL) (03/06/2011 11:13 AM CDT) Patholo gist Method Time Signature Alkaline 170 (H) 38 - 126 [facility] Phosphatase U/L Bilirubin, 0.2 0.2 - 1.3 [facility] Total mg/dl Bilirubin, 0.0 0.0 - 0.3 [facility] Direct mg/dl ALT (SGPT) 31 0 - 69 [facility] U/L AST (SGOT) 22 0 - 55 [facility] U/L Protein, Total 7.0 6.3 - 8.2 [facility] g/dl Albumin 4.0 3.5 - 5.0 [facility] g/dl A/G Ratio, 1.3 >1.0 [facility] calc. Specimen Anatomical Collection Method Collection Time Receive d Time (Source) Location / / Volume Laterality 03/06/2011 11:13 03/06/2011 AM CDT 11:25 AM CDT Quan Ames MD LAB_1 Performing Organization Address [facility] Phon e Number [facility] [phone] [address] CREATININE / GFR (03/06/2011 11:13 AM CDT) Analysis Performed At [facility] Time Signature Creatinine 1.05 0.66 - [facility] 1.25 mg/dl GFR, Estimated >60.0 >60 [facility] ml/min/1.7 3m2 GFR, Est., If >60.0 >60 [facility] Black ml/min/1.7 3m2 Specimen Anatomical Collection Method Collection Time Receive d Time (Source) Location / / Volume Laterality 03/06/2011 11:13 03/06/2011 AM CDT 11:25 AM CDT Quan Ames MD LAB_1 Performing Organization Address [facility] Phon e Number [facility] [phone] [address] (ABNORMAL) INTACT PTH + CALCIUM (03/06/2011 11:13 AM CDT) Analysis Performed At [facility] Time Signature Intact PTH 106.0 (H) 14.0 - [facility] 72.0 pg/mL Comment: Performed at [facility] Calcium 8.8 8.4 - 10.2 mg/dL [facility] Comment: Performed at [facility] Specimen Anatomical Collection Method Collection Time Receive d Time (Source) Location / / Volume Laterality 03/06/2011 11:13 03/06/2011 AM CDT 11:24 AM CDT Quan Ames MD LAB_1 Performing Organization Address [facility] Phon e Number [facility] [phone] [address] VITAMIN D 25-HYDROXY, TOTAL (V77.99) (03/06/2011 11:13 AM CDT) athologist Signature Vitamin 31.6 30 - 80 [facility] D,25-OH, Tot ng/mL Comment: Deficiency: ??< 20 ng/mL Insufficiency: ??20-29 ng/mL Optimum Level: ??30-80 ng/mL Possible Toxicity: > 80 ng/mL Performed at [facility] Specimen Anatomical Collection Method Collection Time Receive d Time (Source) Location / / Volume Laterality 03/06/2011 11:13 03/06/2011 AM CDT 11:24 AM CDT Quan Ames MD LAB_1 Performing Organization Address [facility] Phon e Number [facility] [phone] [address] documented in this encounter Visit Diagnoses Diagnosis Osteoporosis (HRC) - Primary Osteoporosis, unspecified 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
--- OUTSIDE RECORDS SUMMARY | 2022-07-04 15:13 | XMS_ITS | Encounter Summary ---
:1945 Author Organization [facility] Address [address], [place] [address] Care Team Providers Name Role Phone Unavailable Primary Care Provider Unavailable Encounter Details Date Type Department Care Team Description 02/08/2011 Correspondence [facility] Radiology, MRI SAFETY SHEET [address] [facility] Provider [place] [address] Social History Tobacco Use Types Packs/Day Years [...]
--- OUTSIDE RECORDS SUMMARY | 2022-07-04 15:13 | XMS_ITS | Encounter Summary ---
:1945 Author Organization [facility] Address [address] [place] [address] Care Team Providers Name Role Phone Unavailable Primary Care Provider Unavailable Encounter Details Date Type Department Care Team Description 07/27/2010 [facility] Special[facility] Eyad ign Tumor of Thoracic Site; Center MRI Screening for Nephropathy [address] [place] [address] Social History Tobacco Use Types Packs/Day Years [...] Phon e Number [facility] [phone] [address] MR THORACIC SPINE WITH/WITHOUT CONTRAST (07/27/2010 11:19 AM CDT) Anatomical Region Laterality Modality Spine, T-Spine, L-Spine, C-Spine, Skeletal Magnetic Resonance Specimen (Source) Anatomical Collection Method Collection Time Re ceived Time Location / / Volume Laterality 07/27/2010 11:19 AM CDT Narrative 07/27/2010 5:27 PM CDT THORACIC SPINE MRI ? [facility] 07/27/2010 INDICATION: Followup tumor resection. TECHNIQUE: [...] Anna Eren - 07/27/2010 THORACIC SPINE MRI [facility] 07/27/2010 INDICATION: Followup tumor resection. TECHNIQUE: Thoracic [...]
--- OUTSIDE RECORDS SUMMARY | 2022-07-04 15:13 | XMS_ITS | Encounter Summary ---
:1945 Author Organization [facility] Address [address] [address] Care Team Providers Name Role Phone Unavailable Primary Care Provider Unavailable Encounter Details Date Type Department Care Team Description 02/27/2011 Imaging [facility] Canceled (Canc/Jess [address]) [place] [address] Social History Tobacco Use Types Packs/Day Years [...]
--- OUTSIDE RECORDS SUMMARY | 2022-07-04 15:13 | XMS_ITS | Encounter Summary ---
:1945 Author Organization [facility] Address [address] [place] [address] Care Team Providers Name Role Phone Unavailable [...] documented as of this encounter Procedure Notes [facility], PROVIDER - 08/10/2010 12:00 AM CDTAssociated [...] attachment that is no t available. Transcriptions [facility], PROVIDER - 08/10/2010 12:00 AM CDT Phy No Primary/Referring RAD_1 documented in this encounter Visit Diagnoses Not on filedocumented in this encounter
--- OUTSIDE RECORDS SUMMARY | 2022-07-04 15:13 | XMS_ITS | Encounter Summary ---
:1945 Author Organization [facility] Address [address] [place] [address] Care Team Providers Name Role Phone Unavailable Primary Care Provider Unavailable Encounter Details Date Type Department Care Team Description 06/16/2010 Orders Only External to Unknown, [facility] [address] [place], [place] [id number] (Wo rk) Social History Tobacco Use Types Packs/Day Years Used Date Smoking Tobacco: Never Alcohol Use Standard Drinks/Week Comments No 0 (1 standard drink = 0.6 oz pure alcoho l) Sex Assigned at Date Recorded Male 08/06/2021 5:59 PM CDT documented as of this encounter Procedure Notes [facility], Provider - 06/16/2010 12:00 AM CDTAssociated Order(s): [...] available. Ordered by an unspecified provider. Transcriptions [facility], Provider - 06/16 12:00 AM CDT Physician Unknown LAB_1 documented in this encounter Visit Diagnoses Not on filedocumented in this encounter
--- OUTSIDE RECORDS SUMMARY | 2022-07-04 15:13 | XMS_ITS | Encounter Summary ---
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 [address] Social History Tobacco Use Types Packs/Day Years [...]
--- OUTSIDE RECORDS SUMMARY | 2022-07-04 15:13 | XMS_ITS | Encounter Summary ---
:1945 Author Organization [facility] Address [address] [place] [address] Care Team Providers Name Role Phone Unavailable Primary Care Provider Unavailable Encounter Details Date Type Department Care Team Description 06/07/2010 Orders Only External to Unknown, [facility] [address] [place], [place] [id number] (Wo rk) Social History Tobacco Use Types [...]
--- OUTSIDE RECORDS SUMMARY | 2022-07-04 15:13 | XMS_ITS | Encounter Summary ---
:1945 Author Organization [facility] Address [address], [place] [address] Care Team Providers Name Role Phone Unavailable Primary Care Provider Unavailable Encounter Details Date Type Department Care Team Description 02/27/2011 Imaging [facility] [address] [place] [address] Social History Tobacco Use Types Packs/Day Years [...]
--- OUTSIDE RECORDS SUMMARY | 2022-07-04 15:13 | XMS_ITS | Encounter Summary ---
:1945 Author Organization [facility] Address [address] [place] [address] Care Team Providers Name Role Phone Unavailable Primary Care Provider Unavailable Encounter Details Date Type Department Care Team Description 03/05/2011 Orders Only External to Unknown, [facility] [address] [place] [employer] [place] [address] (Wo rk) Social History Tobacco Use Types [...]
--- OUTSIDE RECORDS SUMMARY | 2022-07-04 15:13 | XMS_ITS | Encounter Summary ---
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 [place] [address] [place], [place] [phone] (Wo rk) Social History Tobacco Use Types [...] CD of your MRI's to take to [facility]. Follow up with Dr. Garry Neff, please verify with [facility] weather they would like to start chemo-we can coordinate the MRIs that [facility] recommends-just send us the dictation-to let us know how things are going. In 3 months with MRI prior to evaluate the spine-we would recommend this can be completed at [facility]. If tests were ordered, they will be reviewed at your next office visit. Please allow 10-14 days for forms to be completed and 2-3 business days for medication refills. Please call the Neurosurgery/Spine Clinic at [phone] with any further questions or concerns. documented in this encounter Progress Notes Garry Neff X - 09/12/2010 9:07 PM CDT Lucy Lanza PA-C, am acting as a haul truck driver for Dr. Neff who is personally here with me while writting this note This is a dictation on Carl Cullen is a 65 yr old male [id number] 1945 Chief Complaint: Follow up Carl Cullen [...] is doing well; he has appointments at [facility] for Oncology follow up We advised he [...] had MRI Thoracic completed on 07/27/2010 @ [facility]. Patient rates pain 0. Only has sensation [...]
--- OUTSIDE RECORDS SUMMARY | 2022-07-04 15:13 | XMS_ITS | Encounter Summary ---
:1945 Author Organization [facility] Address [address] [place] [address] Care Team Providers Name Role Phone Unavailable Primary Care Provider Unavailable Reason for Referral Specialty Diagnoses / Procedures Referred By Contact Refer red To Contact Lucy Colmneares PA-C [address] [place] [address] Referral ID Status Reason Start Date Expiration Date Visits Requ ested Visits Authorized Reason for Visit Reason Comments POST-OP,EXAM DOS 04/11/10 Encounter Details Date Type Department Care Team Description 06/19/2010 Office Visit Specialty Center Garry Neff low-Up Examination, Following Unspecified Surgery (Primary Dx); 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 [place] [address] [place], [place] [phone] (Wo rk) Social History Tobacco Use Types [...] refills. Please call the Neurosurgery/Spine Clinic at [phone] with any further questions or concerns. documented in this encounter Progress Notes Seating And Mobility TechnologistLucy - 06/19/2010 4:26 PM CDT This is [...]
--- OUTSIDE RECORDS SUMMARY | 2022-07-04 15:13 | XMS_ITS | Encounter Summary ---
:1945 Author Organization [facility] Address [address] [address] Care Team Providers Name Role Phone Unavailable Primary Care Provider Unavailable Encounter Details Date Type Department Care Team Description 02/27/2011 Imaging [facility] [address] [place] [address] Social History Tobacco Use Types Packs/Day Years [...]
--- OUTSIDE RECORDS SUMMARY | 2022-07-04 15:13 | XMS_ITS | Encounter Summary ---
:1945 Author Organization [facility] Address [address] [place] [address] Care Team Providers Name Role Phone Unavailable [...]
--- OUTSIDE RECORDS SUMMARY | 2022-07-04 15:13 | XMS_ITS | Encounter Summary ---
:1945 Author Organization [facility] Address [address], [place] [address] Care Team Providers Name Role Phone Unavailable Primary Care Provider Unavailable Encounter Details Date Type Department Care Team Description 07/27/2010 Correspondence [facility] Radiology, MRI SAFETY SHEET [address] [facility] Provider [place] [address] Social History Tobacco Use Types Packs/Day Years [...]
--- OUTSIDE RECORDS SUMMARY | 2022-07-04 15:13 | XMS_ITS | Encounter Summary ---
:1945 Author Organization [facility] Address [address], [place] [address] Care Team Providers Name Role Phone Unavailable Primary Care Provider Unavailable Reason for Visit Reason Comments CONSULT bilateral knee pain/fx Encounter Details Date Type Department Care Team Description 02/27/2011 Office Visit [facility] Satish Bowling Fracture of femoral condyle, right, closed (Primary Dx); Orthopedics MD Bryn Tibial plateau fracture; [address] Fracture of femoral condyle, left, [place] [address] [place], [place] [phone] [address] Social History Tobacco Use Types Packs/Day Years [...] surgery If your surgery will be at [facility]: A nurse will contact you between 11 am - 6 pm the day before your surgery. The nurse will review instructions, tell you when to arrive for surgery, and answer your questions. Please call [phone] if you will not be home during [...] consented to the surgery. Satish Bowling MD BOAT WASHER:rocio Dictated: 02/27/2011 12:24:18 Transcribed: 02/28/2011 11:46:20 Job: [id number] Doc: [id number] cc: Garry Neff MD, Referring Provider Satish [...]
--- OUTSIDE RECORDS SUMMARY | 2022-07-04 15:13 | XMS_ITS | Encounter Summary ---
:1945 Author Organization [facility] Address [address], [place] [address] Care Team Providers Name Role Phone Unavailable Primary Care Provider Unavailable Reason for Referral Specialty Diagnoses / Procedures Referred By Contact Refer catina To Contact Garry Neff MD [address] [place] [address] Referral ID Status Reason Start Date Expiration Date Visits Requ ested Visits Authorized Scheduling Instructions If an appointment with [facility] was advised and you have not been contacted to schedule that appointment w ithin 3 business days, please call [phone], Option 1 for assistance. Specialty Diagnoses / Procedures Referred By Contact Joey dominique To Contact Garry Neff MD [address] [place] [address] Referral ID Status Reason Start Date Expiration Date Visits Requ ested Visits Authorized Scheduling Instructions If an appointment with [facility] nd[facility]ology was advised and you have not been contacted to schedule that appointm ent within 3 business days, please call [phone] for assistance. For Diabetes Type 2 - Specialist consult ation and treatment recommendations for management of Type 2 Diabetes can often be accomplished in one to three visits. After that, your Primary Care Provider can oft en resume the prison management of your diabetes treatment plan. Please discuss this with your Optical Instrument Assembler. Reason for Visit Reason Comments Revisit F/u Encounter Details Date Type Department Care Team Description 02/08/2011 Office Visit Specialty Center Garry Neff tumor of thoracic site (Primary Dx); 401 NeuroSurgery XMD Unspecified osteoporosis [address] [place] [address] [place] [phone] (Wo rk) Social History Tobacco Use Types [...] refills. Please call the Neurosurgery/Spine Clinic at [phone] with any further questions or concerns. documented in this encounter Progress Notes Garry Neff - 04/17/2011 11:15 AM CDT I, Lucy Parker PA-C, am acting as a senior bi developer for Dr. Neff, I am transcribing directly from notes Dr. Neff took during the clinic visit This is a dictation on Carl Cullen is a 65 yr old male [id number] 1945 Chief Complaint: Followup resection of thoracic [...] Sex Horm Bind 32 13 - 74 [facility] Glob nmol/L Testosterone, 285 183 - 703 [facility] Total ng/dl Testosterone, 5.7 3.8 - 12.8 [facility] Free ng/dl Testosterone, 133.0 89.0 - [facility] Bioav. 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
--- OUTSIDE RECORDS SUMMARY | 2022-07-04 15:13 | XMS_ITS | Encounter Summary ---
:1945 Author Organization [facility] Address [address] [place] [address] Care Team Providers Name Role Phone Unavailable Primary Care Provider Unavailable Encounter Details Date Type Department Care Team Description 11/06/2010 [facility] Special[facility] Epe ndymoma; Center MRI Screening for nephropathy [address] [place] [address] Social History Tobacco Use Types Packs/Day Years [...] Screening for R esults for this POC OVEN PRESS TENDER nephropathy procedure are i n the results section. 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 documented in this encounter Results CREATININE/GFR, WB POC (11/07/2010 12:01 PM OVEN PRESS TENDER) P athologist Signature Creat Whole 1.1 0.66 - [facility] Blood 1.25 mg/dl GFR, Estimated >60.0 >60 [facility] ml/min/1.7 3m2 GFR, Est., If >60.0 >60 [facility] Black ml/min/1.7 3m2 Specimen Anatomical Collection Method Collection Time Receive d Time (Source) Location / / Volume Laterality 11/07/2010 12:01 11/07/2010 PM OVEN PRESS TENDER 12:35 PM OVEN PRESS TENDER Cooper Chávez MD LAB_1 Performing Organization Address City/State/ZIP Code Phon e Number [facility] [phone] [address] MR THORACIC SPINE WITH/WITHOUT CONTRAST (11/06/2010 12:05 PM OVEN PRESS TENDER) Anatomical Region Laterality Modality Spine, T-Spine, L-Spine, C-Spine, Skeletal Magnetic Resonance Specimen (Source) Anatomical Collection Method Collection Time Re ceived Time Location / / Volume Laterality 11/06/2010 12:05 PM OVEN PRESS TENDER Narrative 11/06/2010 2:45 PM OVEN PRESS TENDER [facility] MRI THORACIC SPINE WITHOUT AND WITH IV C ONTRAST 11/06/2010 INDICATION: Followup thoracic tumor rese ction. TECHNIQUE: Thoracic spine MRI without an d with intravenous contrast. CONTRAST: 20 mL IV Magnevist. Estimated GFR 67. COMPARISON: 07/27/2010 and 05/26/2010 [facility] spine MRIs. FINDINGS: Again demonstrated are postope rative changes of T2-T3 through T5-T6 laminectomies.The previously demon strated multiseptated peripherally enhancing fluid collection in the exhibit builder ior paraspinal soft tissues overlying the surgical [...] Procedure Note Jeffrey Monterrosojanice Miranda - 11/06/2010 [facility] MRI THORACIC SPINE WITHOUT AND WITH IV C ONTRAST 11/06/2010 INDICATION: Followup thoracic tumor rese ction. TECHNIQUE: Thoracic spine MRI without an d with intravenous contrast. CONTRAST: 20 mL IV Magnevist. Estimated GFR 67. COMPARISON: 07/27/2010 and 05/26/2010 [facility] spine MRIs. FINDINGS: Again demonstrated are postope rative changes of T2-T3 through T5-T6 laminectomies.The previously demon strated multiseptated peripherally enhancing fluid collection in the exhibit builder ior paraspinal soft tissues overlying the surgical [...]
--- OUTSIDE RECORDS SUMMARY | 2022-07-04 15:13 | XMS_ITS | Encounter Summary ---
:1945 Author Organization [facility] Address [address] [address] Care Team Providers Name Role Phone Unavailable [...]
--- OUTSIDE RECORDS SUMMARY | 2022-07-04 15:13 | XMS_ITS | Encounter Summary ---
:1945 Author Organization [facility] Address [address] [address] Care Team Providers Name Role Phone Unavailable [...]
--- OUTSIDE RECORDS SUMMARY | 2022-07-04 15:13 | XMS_ITS | Encounter Summary ---
:1945 Author [facility] Address [address] [address] Care Team Providers Name Role Phone Unavailable Primary Care Provider Unavailable Reason for Visit Reason Onset Date Comments QUESTIONS, GENERAL 07/18/2010 Encounter Details Date Type Department Care Team Description 07/18/2010 Telephone Specialty Center [address], GENERAL Physical Medicine MD Martha [address] [place] [address] [place] [address] [phone] (Wo rk) Social History Tobacco Use Types [...]
--- OUTSIDE RECORDS SUMMARY | 2022-07-04 15:13 | XMS_ITS | Encounter Summary ---
:1945 Author Organization [facility] Address [address], [place] [address] Care Team Providers Name Role Phone Unavailable Primary Care Provider Unavailable Encounter Details Date Type Department Care Team Description 03/06/2011 Orders Only Specialty Center [address], Ch rosamaria Jones MD Endocrinology Clinic [address] [place] [address] [place] [address] [phone] Social History Tobacco Use Types Packs/Day Years [...]
--- OUTSIDE RECORDS SUMMARY | 2022-07-04 15:13 | XMS_ITS | Encounter Summary ---
:1945 Author Organization [facility] Address [address] [address] Care Team Providers Name Role Phone Unavailable Primary Care Provider Unavailable Reason for Referral Specialty Diagnoses / Procedures Referred By Contact Refer red To Contact Garry Neff MD [address] [place] [address] Referral ID Status Reason Start Date Expiration Date Visits Requ ested Visits Authorized Scheduling Instructions If an appointment with [facility] y[facility] was advised and you have not been contacted to schedule that appointment within 3 business days, please call for assistance. R CANE PLANTING EQUIPMENT OPERATOR Reason for Visit Reason Onset Date Comments QUESTIONS, GENERAL 01/04/2011 Encounter Details Date Type Department Care Team Description 01/04/2011 Telephone Specialty Center 401 Garry Neff, QUESTIONS, GENERAL NeuroSurgery [address] [facility] [address] [place] [address] [place] [address] [phone] (Wo rk) Social History Tobacco Use Types [...] understanding. Selene Johnson, VALERIE 01/05/2011, 11:22 AM R CANE PLANTING EQUIPMENT OPERATOR Sweetie Sterling - 01/05/2011 10:47 AM CST Patient's left message regarding referral to PM&R. R CANE PLANTING EQUIPMENT OPERATOR Giselle Vila - 01/04/2011 5:00 PM CST Pt's left a message on our voicemail requesting a call back from Dr. Neff's care team. Pt's stated she has some questions. Please call pt's back on home phone with information. Thanks. Giselle Vila 01/04/2011, 5:00 PM R CANE PLANTING EQUIPMENT OPERATOR documented in this encounter Plan of Treatment Scheduled Referrals Name Type Priority Associated Diagnoses Order S yash PHYSICAL MEDICINE & REHAB Referral Routine Or dered: 01/05/2011 CONSULT-ADULT [[id number]] documented as of this encounter Visit Diagnoses Not on filedocumented in this encounter
--- OUTSIDE RECORDS SUMMARY | 2022-07-04 15:13 | XMS_ITS | Encounter Summary ---
:1945 Author Organization [facility] Address [address] [address] Care Team Providers Name Role Phone Unavailable Primary Care Provider Unavailable Reason for Visit Reason Onset Date Comments Orders Needed 09/04/2010 Encounter Details Date Type Department Care Team Description 09/04/2010 Telephone Specialty Center Garry Whitley MD Orders Needed NeuroSurgery [address] [place] [address] [place] [address] [phone] Social History Tobacco Use Types Packs/Day Years [...] 12:16 PM CDT Patient's calling lynda to [facility] 3 mo f/u and MRI, which was to be done at if no chemo needed at [place]. No order for mri in. documented in this encounter Plan of Treatment Not on filedocumented as of this encounter Results MR THORACIC SPINE WITH/WITHOUT CONTRAST (11/06/2010 12:05 PM BOX REPAIRER) Anatomical Region Laterality Modality Spine, T-Spine, L-Spine, C-Spine, Skeletal Magnetic Resonance Specimen (Source) Anatomical Collection Method Collection Time Re ceived Time Location / / Volume Laterality 11/06/2010 12:05 PM BOX REPAIRER Narrative 11/06/2010 2:45 PM BOX REPAIRER [facility] MRI THORACIC SPINE [...] multiseptated peripherally enhancing fluid collection in the hot die press operator ior paraspinal soft tissues overlying the surgical [...] noted. Procedure Note Bradford Monterroso - 11/06/2010 [facility] MRI THORACIC SPINE WITHOUT AND WITH IV C ONTRAST 11/06/2010 INDICATION: Followup thoracic tumor rese ction. TECHNIQUE: Thoracic spine MRI without an d with intravenous contrast. CONTRAST: 20 mL IV Magnevist. Estimated GFR 67. COMPARISON: 07/27/2010 and 05/26/2010 [facility] spine MRIs. FINDINGS: Again demonstrated are postope rative changes of T2-T3 through T5-T6 laminectomies.The previously demon strated multiseptated peripherally enhancing fluid collection in the hot die press operator ior paraspinal soft tissues overlying the surgical [...]
--- OUTSIDE RECORDS SUMMARY | 2022-07-04 15:13 | XMS_ITS | Encounter Summary ---
:1945 Author Organization [facility] Address [address], [place] [address] Care Team Providers Name Role Phone Unavailable Primary Care Provider Unavailable Reason for Visit Reason Onset Date Comments LAB TESTS, NOS 02/08/2011 Encounter Details Date Type Department Care Team Description 02/08/2011 Telephone Specialty Center 401 Garry Neff MD LAB TESTS, NOS NeuroSurgery [address] [place] [address] [place] [address] [phone] Social History Tobacco Use Types Packs/Day Years [...]
--- OUTSIDE RECORDS SUMMARY | 2022-07-04 15:13 | XMS_ITS | Encounter Summary ---
:1945 Author Organization [employer] Address [address], [place] [address] Care Team Providers Name Role Phone Unavailable Primary Care Provider Unavailable Encounter Details Date Type Department Care Team Description 03/13/2011 Surgery RH Operating Room Karl Mcclain, OPEN REDUCTION INTERNAL [address] [place] [address] FRACTURE [phone] [place], [place] [address] (Wo rk) Social History [...] Raquel Cook - 03/16/2011 1:26 PM CDT [facility] Orthopedic Discharge Note Patient Name: Carl Cullen [...] 2000 S/p resection by Dr. Glasgow at [facility] in 05/2000. However resection was incomplete due [...] early for Xrays Provider: Dr Karl Mcclain [facility] Specialty Clinic: Orthopaedics; [phone]; [address] [place] [address] Scheduling Instructions: If an appointment with [facility] Orthopaedics was advised and you havenot been contacted to schedule that appointment within 3 business days, please call [phone], Option 1 for assistance. Order Specific Question [...] red, swollen and painful contact Orthopaedics at #[phone]. Continue dailydressing changes for wounds that continue to drain clear fluids, discontinue use of dressings when wound become dry and are no longer draining. Order Specific Question Answer Comments Wound Measurement - Type of wound surgical Location of wound bilateral lower extremities Contact Orthopedic Surgeon Order Comments: Contact Orthopedic Surgeon if considering discontinuing or changing the anticoagulation order. Contact information (name/clinic/phone number): [phone] When to Resume Normal Activities: Order Comments: [...] Order Comments: You will be back to [facility], at the Surgical Specialties Clinic , 1st. Floor at[address] [place], [place]. [phone] DR. MCCLAIN ON 03/27/11 9:15 AM FOR POST OPCHECK AND X RAY TAKEN Diet Order Comments: Regular Condition at Discharge: Stable Prognosis: Good Rehab Potential: Good Code Status: Full Code Lab Tests Order Comments: INR/PROTIME SCHEDULING INSTRUCTIONS (date/time): every Saturday and until INRreaches goal of 2-3.ROUTE RESULTS TO: .PMD Dr Loretta Mcmahan at [facility]. Please complete CBC-without diff one week after [...] shortness of breath Community Resources NONE Contact [address] [address] For questions about your discharge instructions call the nursing unit : MIGUEL Sellers, Emergency & Urgently Needed Care: For emergencies call 911 and/or get medical help right away. If you are a [employer] member and have medical needs after clinic hours you may call the CareLineat [phone] or . Smoking and second-hand smoke exposure: Smoking damages blood vessels, reduces the oxygen in your blood and makes your heart beat too fast. If you smoke you should quit. Everyone should avoid second- hand smoke. If you would like further assistance after your discharge, please contact [phone] or visit [email or web address] can offer further [...] weight will also be followed by the Vessel Operator when you go in for your treatment. [...] Jennifer Seth - 03/16/2011 11:15 AM CDT [facility] Care Management Discharge Note Admission Date/Time: [...] wheelchair with a follow up appointment at [facility] PT seating clinic as instructed. Jeff and his are happy to have this service and are pleased with how much more comfortable theloaner wheelchair is for Jeff. Jeff prefers to f/u at his clinic for INR draws and their local, [facility] physical therapy, for the out patient [...] Report completed by VALERIE Peace/PHN, Pager Number [phone] --- End of Report --- Kehinde De La Cruz, OTR/L - 03/16/2011 10:11 AM CDT [facility] Occupational Therapy - Progress [...] from his to thread B legs and rod puller hips while pt in supine. Pt [...] patient contact: 45 minutes [facility] Lee/Kateryna (pager [phone]) OT Dept #: [phone] - OT Weekend Pager #: [phone] - [facility] Main #: [phone] Cecile Browne - 03/16/2011 8:40 AM CDT [facility] Medicine Progress Note Date of Service: [...] Medicine perspective (orders complete) Cecile Browne PA-C [facility] [phone] GaugerRaudel - 03/16/2011 7:25 AM CDT Orthopaedic [...] today Raudel Starr MD G2 Orthopaedic Resident [phone] Awilda Knox RN - 03/16/2011 3:32 AM CDT [facility] Progress Note (Nursing) Identify/Problem(s): Comfort Desired [...] Jimenez RN - 03/15/2011 9:59 PM CDT [facility] Progress Note (Nursing) Identify/Problem(s): GI/pain Desired [...] Cruz, OTR/L - 03/15/2011 3:45 PM CDT [facility] Occupational Therapy - Progress [...] fit of pt's current manual w/c. Physician's physiotherapist's assistant and marketing analytics manager Jennifer contacted to request order for [...] patient contact: 30 minutes [facility] Lee/Kateryna (pager [phone]) OT Dept #: [phone] - OT Weekend Pager #: [phone] - [facility] Main #: [phone] Bayron Bernstein RN - 03/15/2011 2:20 PM CDT [facility] Progress Note (Nursing) Identify/Problem(s): Pain/Comfort Constipation [...] RN --- End of Report --- Mitch Kirklnad - 03/15/2011 1:10 PM CDT [facility] IT APPLICATION ADMINISTRATOR NOTE - The pt received communion today. Fr. Mitch Kirkland [facility] Cecile Browne - 03/15/2011 11:47 AM CDT [facility] Medicine Progress Note Date of Service: [...] management, activity per ortho Cecile Browne PA-C [facility] [phone] GaugerRaudel - 03/15/2011 8:24 AM CDT Orthopaedic [...] Hemogram ordered POD #1,2,3 - f/u with [place] in 2 wks. -Dispo: will need 3-4 more days of OT Raudel Starr MD G2 Orthopaedic Resident [phone] Awilda Knox RN - 03/15/2011 4:04 AM CDT [facility] Progress Note (Nursing) Identify/Problem(s): Comfort Desired [...] Welsh RN - 03/14/2011 11:53 PM CDT [facility] Progress Note (Nursing) Identify/Problem(s): Mobility/pain Desired [...] Bernstein RN - 03/14/2011 6:04 PM CDT [facility] Progress Note (Nursing) Identify/Problem(s): Pain/Comfort Mobility [...] Cecile Browne - 03/14/2011 6:00 PM CDT [facility] Medicine Progress Note Date of Service: [...] Asymptomatic. Monitor for tachycardia/hypotension. Cecile Browne PA-C [facility] [phone] Jennifer Seth - 03/14/2011 2:21 PM CDT [facility] Care Management Pullman Car Repairer Initial Assessment Admission Date/Time: 03/13/2011 5:03 PM Attending MD: Karl Mcclain Data Carl Cullen was referred to this Pullman Car Repairer for discharge planning. Chart reviewed, discussed with interdisciplinary team, as well as with patient and family. 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 Insurance: Payor: MEDICARE PART B ONLY [id number] Plan: MEDICARE PART B ONLY Product Type: Medicare Current Living Situation: Patient lives with their spouse. Support System: / family Services Involved: Jeff has been using [employer] [facility] physical therapy in [facility]. Additional Data: PMD Dr Loretta Mcmahan at [facility]. Coordination of Care and Referrals: Provided patient/family [...] a regular wheel chair, Stander, new step coat operator insulator and a transfer board. Jeff and his have paid out of pocket for most equipment with only the electric wheelchair being covered by medicare 3 years ago. Sheron mentioned that his regular wheelchair they obtained via an [employer] and Jeff has never been assessed for [...] W/C seating appointment is needed. Jeff uses [employer] for urinary catheters and supplies. Jeff has not been to a TCU in the past and prefers to d/c home. PMD is Dr Mcmahan at [facility] ( usually every three weeks for INR draws) PM&R is Dr Randle at [facility]. Plan Anticipated Discharge Date: TBD Anticipated Discharge Plan: home with family? Plan for Follow Up: Will follow Report completed by Jennifer Seth RN BAN/PHN, Pager Number [phone] --- End of Report --- Raudel Starr [...] - Hemogram ordered POD#1,2,3 - f/u with [place] in 2 wks. Raudel Starr MD G2 Orthopaedic Resident [phone] Awilda Knox RN - 03/14/2011 2:38 AM CDT [facility] Progress Note (Nursing) Identify/Problem(s): Comfort Desired [...] Knox RN - 03/14/2011 12:23 AM CDT [facility]. MD Notified Note Name of MD [...] Hill RN - 03/13/2011 11:21 PM CDT [facility] Progress Note (Nursing) Identify/Problem(s): S/Post-op Desired [...] Voss PharmD - 03/13/2011 7:43 PM CDT [facility] Clinical Pharmacy Medication Reconciliation Note Medication [...] when home meds resumed. PHARMACIST NAME: Florinda oVss Phone/Pager #: [phone] --- End of Report --- documented in this encounter Procedure Notes [facility], PROVIDER - 03/17/2011 3:44 AM CDT [facility] - 03/17/2011 3:44 AM CDTAssociated Order(s): EKG IP; EKG IP [facility]HES[facility], PROVIDER - 03/17/2011 3:44 AM CDT [facility] AN[facility], PROVIDER - 03/14/2011 4:52 PM CDT [facility], PROVIDER - 03/14/2011 4:52 PM CDT [facility] AN[facility]ES[facility], PROVIDER - 03/14/2011 4:52 PM [...] and has been doing various stretching exercises lbcbhbszrmlywqi-uj-tetc rotation stretching of his hips. That started [...] estimate is [address] Karl Mcclain MD STRE[address] SUPERINTENDENT:nelly Dictated: 03/13/2011 18:10:30 Transcribed: 03/13/2011 19:26:48 Job: [id number] Doc: [id number] cc: Raquel Cook - 03/13/2011 5:12 PM CDT [facility] Brief Operative Note Name: Carl Cullen Age: 65 yr Gender: male Attending Provider: Karl Mcclain Date: 03/13/2011 Preop dx: Left tibia plateau, right femoral condyle, left femoral condyl fractures Postop dx: same Procedure: ORIF Left tibia plateau, ORIF right femoral condyle, ORIF left femoral condyl Surgeon: Dr Karl Mcclain Package Pick Up: Raquel Cook PA-C Anesthesia: General IVF: 1800 [...] case. Raquel Cook PA-C 03/13/2011, 5:12 PM [phone] pager documented in this encounter Consult Notes Esmer Cruz - 03/13/2011 11:19 PM CDTAssociated Order(s): MEDICINE INPT CONSULT [facility]. [facility] Medicine Consultation Note (MD) Date of [...] 2000 S/p resection by Dr. Glasgow at [facility] in 05/2000. However resection was incomplete due [...] postop bleed cmpl ??? Total knee replacement (17665) right ??? Ivc filter placement 1999 Family History Problem Relation Age of Onset ??? Cancer, Colon Mother ??? Cancer, Other Brother brother with throat cancer ??? Cancer, Breast Sister ??? Osteoporosis Mother no history of fractures Social History Occupational History ??? [employer] ??? [employer] ??? retired/disability Social History Main Topics ??? [...] Report Completed by: Esmer Cruz PA-C Pager: [phone] documented in this encounter OR Notes H&P - [facility], PROVIDER - 03/17/2011 10:52 AM CDT H&P - External, Provider - 03/17/2011 10:51 AM CDT documented in this encounter Miscellaneous Notes [facility] - [facility] - 03/21/2011 3:50 AM CDT [facility] - [facility], PROVIDER - 03/17/2011 10:53 AM CDT [facility] - [facility], PROVIDER - 03/17/2011 7:17 AM CDT Media - [facility] PROVIDER - 03/17/2011 3:44 AM CDT Media - [facility] PROVIDER - 03/13/2011 11:30 AM CDT Media - [facility] - 03/13/2011 11:30 AM CDT documented [...] Karl Mcclain MD LAB_1 Performing Organization Address [facility] Phon e Number [address] [address] [place], [place] [phone] POTASSIUM (03/16/2011 6:56 AM CDT) P athologist Signature Potassium 4.1 3.5 - 5.3 [facility] mmol/L Specimen Anatomical Collection Method Collection Time Receive d Time (Source) Location / / Volume Laterality 03/16/2011 6:56 AM 1 7:00 CDT AM CDT Karl Mcclain MD LAB_1 Performing Organization Address [facility] Phon e Number [address] [address] [place], [place] [phone] (ABNORMAL) INR/Protime (daily while on warfarin) (03/15/2011 6:43 AM CDT) athologist Signature Protime 16.1 (H) 12.0 - 14.5 [facility] sec INR 1.3 [facility] Specimen Anatomical Collection Method Collection Time Receive d Time (Source) Location / / Volume Laterality 03/15/2011 6:43 AM 1 7:07 CDT AM CDT Karl Mcclain MD LAB_1 Performing Organization Address [facility] Phon e Number [address] [address] [place], [place] [phone] (ABNORMAL) Hemogram with Platelets (POD #1, 2, [...] Karl Mcclain MD LAB_1 Performing Organization Address [facility] Phon e Number [address] [address] [place], [place] [phone] XR KNEE AP/LAT 2 VIEWS RIGHT (03/14/2011 [...] Karl Mcclain MD LAB_1 Performing Organization Address [facility] Phon e Number [address] [address] [place], [place] [phone] BASIC METABOLIC PANEL (03/14/2011 7:07 AM CDT) athologist [facility] BUN 16 7 - 20 [facility] mg/dl [...] Karl Mcclain MD LAB_1 Performing Organization Address City/[facility] Phon e Number [address] [address] [place], [place] [phone] (ABNORMAL) Hemogram with Platelets (POD #1, 2, [...] Karl Mcclain MD LAB_1 Performing Organization Address [facility]/ZIP [facility] [place] [place] Phon e Number [address] [address] [place], [place] [phone] GLUCOSE, WHOLE BLOOD POC (03/13/2011 9:48 PM CDT) athologist Signature Glucose, Whole 114 70 - 180 [facility] Blood mg/dl Comment: Point of Care Testing RN Notified Specimen Anatomical Collection Method Collection Time Receive d Time (Source) Location / / Volume Laterality 03/13/2011 9:48 PM 1 1:26 CDT AM CDT Karl Mcclain MD LAB_1 Performing Organization Address [facility] Phon e Number [address] [address] [place], [place] [phone] XR C-ARM 30-59 MIN (03/13/2011 5:00 PM [...] Address City/State/ZIP Code Phon e Number [address] [address] [place], [place] [phone] INR/PROTIME (03/13/2011 12:40 PM CDT) P athologist Signature Protime 13.2 12.0 - 14.5 [facility] sec INR 1.0 [facility] Specimen Anatomical Collection Method Collection Time Receive d Time (Source) Location / / Volume Laterality 03/13/2011 12:40 03/13/2011 PM CDT 12:55 PM CDT Raquel Cook PA-C LAB_1 Performing Organization Address [facility] Code Phon e Number [address] [address] [place], [place] [phone] TYPE & Crossmatch (units available for 3 days) (03/13/2011 12:40 PM CDT) Patholo gist Method Time Signature ABO/RH(D) A NEGATIVE [facility] Antibody NEGATIVE [facility] Screen Crossmatch 03/16/2011 [facility] Expires Specimen Anatomical Collection Method Collection Time Receive d Time (Source) Location / / Volume Laterality 03/13/2011 12:40 03/13/2011 PM CDT 12:56 PM CDT Latrice Triana MD LAB_1 Performing Organization Address [facility] Code Phon e Number [address] [address] [place], [place] [phone] (ABNORMAL) HEMOGRAM/PLTS (03/13/2011 12:40 PM CDT) P [...] Raquel Cook PA-C LAB_1 Performing Organization Address [facility]/ZIP Code Phon e Number [address] [address] [place], [place] [phone] EKG IP (03/13/2011 12:00 AM CDT) Specimen (Source) Anatomical Location Collection Method / Collectio n Time Received Time / Laterality Volume 03/13/2011 Narrative This result has an attachment that is no t available. Transcriptions [facility] PROVID[facility] - 03/17/2011 3:44 AM C [...] SEATING/MOBILITY EVALUATION Carl Cullen [address] [facility] [phone] 1945 Estimated Body mass index is 33.43 kg/(m^2) as calculated from the following: Height as of this encounter: 5' 10(1.778 m). Weight as of this encounter: 233 lb(105.688 kg). 03/15/2011 Karl Mcclain MD [address] [place] [address] Diagnosis: Paraplegia Payor: MEDICARE PART B ONLY [id number] Plan: MEDICARE PART B ONLY Product Type: Medicare Physician: referring physician Karl Mcclain MD (orthopedics) Funding: Medicare / We Tribute Vendor: [employer] Seating and Mobility Onset Date: 03/13/11 MEDICAL HISTORY: History/Progression: He has a history of thoracic ependymoma for a number of [facility] No [facility] seating at any [...] ??? HTN (Hypertension) 401.9AE ??? CAREPLAN: BACLOFEN [address] ??? Osteoporosis 733.00C Past Medical History Diagnosis Date ??? 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 Glasgow at [facility] in 05/2000. However resection was incomplete due [...] postop bleed cmpl ??? Total knee replacement (37377) right ??? Ivc filter placement 1999 Recent/Planned Surgeries: 03/13/11 PROCEDURE: 1. Plating of right lateral femoral condyle. 2. Plating of left lateral femoral condyle. 3. Plating of left medial tibial plateau fracture. 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 OBJECTIVE: [...] of his back pain. A manual wheelchair (speech pathology supervisor weight than is Breezy) could potentially be appropriate. Regardless, he should have an opportunity to try some various rehab seating options before a final decision is made and thus a follow up outpatient PT evaluation for seating is necessary. Goal: 1. Patient to have a wider manual wheelchair with pressure relieving cushion that is speech pathology supervisor weight to allow for better positioning and [...] Cruz, OTR/L - 03/14/2011 3:29 PM CDT [facility] Occupational Therapy ADL Evaluation Diagnosis: [...] 2000 S/p resection by Dr. Glasgow at [facility] in 05/2000. However resection was incomplete due [...] in chair. Will follow up with family, caser in and therapy dept re: w/c. Assessment/Recommendations: The [...] minutes [facility] Lee/Kateryna (pager) OT Dept #: [phone] - OT Weekend Pager #: [phone] - [facility] Main #: [phone] --- End of Report --- Initial Assessments - Lisette Espinal RN - 03/13/2011 8:40 PM CDT [facility] Med-Surg / ICU / Rehab / [...] hospitalization?: self and () Heather Cullen basil phone-[phone] Recent Exposure to Communicable Diseases Within the [...] from returning to independent or assisted living PSYCHOSOCIAL/SPIRITUAL/PROTESTANT/CULTURAL/ABUSE/CHEMICAL Suicide Health Inventory Do you currently have [...] issues for which support from the hospital vendor representatives might be helpful to patient and/or family? [...] Lines & Tubes: 1 Medications (CV or OFFSET PRINTING PRESSMEN): 2 Falls Risk Score: (0-4 Low) (5-10 [...]
--- OUTSIDE RECORDS SUMMARY | 2022-07-04 15:13 | XMS_ITS | Encounter Summary ---
:1945 [facility] Address [address], [place] [address] Care Team Providers Name Role Phone Unavailable Primary Care Provider Unavailable Encounter Details Date Type Department Care Team Description 06/07/2010 Emergency Room External to External, Provid er ADMIT [place] [address] Social History Tobacco Use Types Packs/Day Years [...]
--- OUTSIDE RECORDS SUMMARY | 2022-07-04 15:13 | XMS_ITS | Encounter Summary ---
:1945 Author Organization [employer] Address [address], [place] [address] Care Team Providers Name Role Phone Unavailable [...] [address] Tibia fracture; [place] [address] [place], [place] Neurogenic bladder; [phone] [address] Spasticity; [phone] Neurogenic demetra l; (Work) Back pain; Edema [...] and initially had his rehabilitation at [facility]. At that point he was still [...] an intrathecal baclofen pump placed through the [facility]. Last year he developed meningitis and [...] bladder. He has had no recent infections. [facility] is accomplished every other day using mini [...] Definitely there is only a sling back [facility] wheelchair and I suspect he is being [...] physician isDr. Loretta GOSS and [facility]af[facility] in [facility]. Past Medical History Diagnosis Date ??? 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 However resection was incomplete due [...] 1 at baseline. Lives with his in [place]. Family History Problem Relation Age of Onset [...] primary care physician Dr. Loretta Heard in [place] at the [facility]. 60 of today's 75 minutes spent in [...]
--- OUTSIDE RECORDS SUMMARY | 2022-07-04 15:13 | XMS_ITS | Encounter Summary ---
:1945 Author Organization [facility] Address [address], [place] [address] Care Team Providers Name Role Phone Unavailable Primary Care Provider Unavailable Encounter Details Date Type Department Care Team Description 11/06/2010 Correspondence [facility] Radiology, MRI SAFETY SHEET [address] Provider [place] [address] Social History Tobacco Use Types Packs/Day Years Used Date Smoking Tobacco: Never Alcohol Use Standard Drinks/Week Comments No 0 (1 standard drink = 0.6 oz pure alcoho l) Sex Assigned at Date Recorded Male 08/06/2021 5:59 PM CDT documented as of this encounter Progress Notes [facility], PROVIDER - 11/14/2010 8:09 AM 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
--- OUTSIDE RECORDS SUMMARY | 2022-07-04 15:13 | XMS_ITS | Encounter Summary ---
:1945 [facility] Address [address], [place] [address] Care Team Providers Name Role Phone Unavailable Primary Care Provider Unavailable Encounter Details Date Type Department Care Team Description 02/26/2011 Correspondence External to External, Provid er [place] [address] Social History Tobacco Use Types Packs/Day Years [...]
--- OUTSIDE RECORDS SUMMARY | 2022-07-04 15:13 | XMS_ITS | Encounter Summary ---
:1945 Author [facility] Address [address], [place] [address] Care Team Providers Name Role Phone Unavailable [...]
--- OUTSIDE RECORDS SUMMARY | 2022-07-04 15:13 | XMS_ITS | Encounter Summary ---
:1945 Author Organization [facility] Address [address], [place] [address] Care Team Providers Name Role Phone Unavailable Primary Care Provider Unavailable Reason for Visit Reason Comments Revisit Encounter Details Date Type Department Care Team Description 11/06/2010 Office Visit Specialty Center Garry Neff tumor of 401 NeuroSurgery X, MD thoracic site [address] (Primary Dx) [place] [address] [place], [place] [phone] (Wo rk) Social History Tobacco Use Types Packs/Day Years Used Date Smoking Tobacco: Never Alcohol Use Standard Drinks/Week Comments No 0 (1 standard drink = 0.6 oz pure alcoho l) Sex Assigned at Date Recorded Male 08/06/2021 5:59 PM CDT documented as of this encounter Last Filed Vital Signs Vital Sign Reading Time Taken Comments Blood Pressure 120/68 11/06/2010 11:49 AM INSURANCE PROFESSIONAL Pulse 80 11/06/2010 11:49 AM INSURANCE PROFESSIONAL Temperature 36.6 ??C (97.9 ??F) 11/06/2010 11:49 AM INSURANCE PROFESSIONAL Respiratory Rate 18 11/06/2010 11:49 AM INSURANCE PROFESSIONAL Oxygen Saturation - - Inhaled Oxygen Concentration [...] refills. Please call the [facility] at [phone] with any further questions or concerns. RANCE PROFESSIONAL documented in this encounter Progress Notes Garry Neff - 01/30/2011 11:00 AM CDT Lucy Lanza PA-C, am acting as a thermal surfacing machine operator for Dr. 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
--- OUTSIDE RECORDS SUMMARY | 2022-07-04 15:13 | XMS_ITS | Encounter Summary ---
:1945 Author Organization [facility] Address [address], [place] [address] Care Team Providers Name Role Phone Unavailable [...]
--- OUTSIDE RECORDS SUMMARY | 2022-07-04 15:13 | XMS_ITS | Encounter Summary ---
:1945 Author Organization [facility] Address [address] [place] [address] Care Team Providers Name Role Phone Unavailable [...] [facility], Provider - 02/06/2011 12:00 AM CDTAssociated Order(s): [...] attachment that is no t available. Transcriptions [facility], Provider - 02/06 12:00 AM CDT Phy No Primary/Referring DUMMY/OTHER/AR documented in this encounter Visit Diagnoses Not on filedocumented in this encounter
--- OUTSIDE RECORDS SUMMARY | 2022-07-04 15:14 | XMS_ITS | Encounter Summary ---
:1945 Author Organization [facility] Address [address] [address] Care Team Providers Name Role Phone Unavailable [...]
--- OUTSIDE RECORDS SUMMARY | 2022-07-04 15:14 | XMS_ITS | Encounter Summary ---
:1945 Author Organization [facility] Address [address] [place] [address] Care Team Providers Name Role Phone Unavailable Primary Care Provider Unavailable Reason for Visit Reason Onset Date Comments Other 06/06/2010 Encounter Details Date Type Department Care Team Description 06/06/2010 Telephone Careline Unassigned, Provider Other [address] [place], [place] [address] [address] [place] [address] Social History Tobacco Use Types Packs/Day Years Used Date Smoking Tobacco: Never Assessed Sex Assigned at Date Recorded Male 08/06/2021 5:59 PM CDT documented as of this encounter Nursing Notes Margo Del Toro RN - 06/06/2010 8:10 PM CDT See encounter from 06/06/2010 for member # [id number] This is a mis spelling of pts last name and charts will be merged. Margo Del Toro RN [facility] Teressa Powell - 06/06/2010 7:28 PM CDT Does the patient currently have [employer] insurance?No Which care system is the patient affiliated with?[facility] Situation:Pt is taking medication for meningitis(been going to the hospital daily for the meds) justover 101 with a headache- just started meds last week A nurse will call you back within the next hour. If you have not heard from a nurse, please feel free to call us back at [phone] and state that you are waiting for a callback. documented in this encounter Plan of Treatment Not on filedocumented as of this encounter Visit Diagnoses Not on filedocumented in this encounter
--- OUTSIDE RECORDS SUMMARY | 2022-07-04 15:14 | XMS_ITS | Encounter Summary ---
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 Maurice Baron Admitting Diagnosis: Encounter Diagnoses Code Name Primary? 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 22232 CAREPLAN: BACLOFEN ??? 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 He was admitted to [facility] on 04/29 for the fever. He [...] Hospital Course: Mr. Cullen was admitted to [facility] on 05/26/2010 following lumbar puncture. He [...] mg intravenously daily for 10 days. Qty: 85176 mg Refills: 0 CONTINUE these medications which [...] Dr. Maurice Osuna RN Neurosurgery Nurse Clinician [phone] I, Geetha Osuna RN, am serving as [...] from the original note were not included. [address] [place] [address] Discharge Instructions for: Jie Cullen Thank you for choosing [facility] as your hospital. A copy of [...] additional information about your medications, visit this [employer] website, [email or web address]. Current Discharge Medication List START taking these medications enoxaparin (AKA LOVENOX) 10 MG/0.1ML injection Inject 100 mg subcutaneously every 12 hours. Qty: 10 mL Refills: 0 Last dose at 1130 on 06/01/2010 Take next dose tonight and then start every 12 hours on home schedule vancomycin (AKA VANCOCIN) 1000 MG injection Administer 2,500 mg intravenously daily for 10 days. Qty: 44919 mg Refills: 0 Last dose at 8 [...] care doctor. Additional Orders Clinic Referral CLINIC: [facility]: Neurosurgery; [phone]; [address] [place] [address] DOCTORS NAME: Dr. Maurice Baron WHEN TO BE SEEN: On (date) 06/19 at 2:00 REASON FOR APPOINTMENT: MDfollow up Discharge Instructions Monitor incision daily for signs of infection (redness, drainage, warmth). Call the Neurosurgery Clinic at [phone] with any incisional changes. Keep incision dry. Cover with Nexcare or Tegaderm for showers, for one week, and remove immediately after shower. Leave incision open to air. Call the doctor for these danger signs Any changes in your incision: redness, swelling, drainage, tenderness, or fever greater than 100.5. Any changes in sensation or decrease in strength to your extremeties. Neurosurgery clinic [phone]. ADMIT TO HOME CARE AGENCY NAME: [facility] [phone]. DATE OF FIRST VISIT: 1-2 days after [...] (Infusion clinic to draw) CLINIC REFERRAL CLINIC: [facility]; [facility] [phone] DOCTORS NAME: Dr. Ajrun Mcmahan WHEN TO BE SEEN: On (date) [...] shortness of breath Community [place] [address] For questions about your discharge instructions call the nursing unit : [facility] [phone] Emergency & Urgently Needed Care: For emergencies call 911 and/or get medical help right away. If you are a [facility] member and have medical needs after clinic hours you may call the CareLineat [phone] or . All medical devices (telemetry/IV/etc) unless otherwise ordered, have been removed before discharge. Smoking and second-hand smoke exposure: Smoking damages blood vessels, reduces the oxygen in your blood and makes your heart beat too fast. If you smoke you should quit. Everyone should avoid second- hand smoke. If you would like further assistance after your discharge, please contact [phone] or visit www.[email or web address] and [employer] can offer further [...] weight will also be followed by the Rv Technician when you go in for your treatment. [...] understand my discharge instructions: Jie Cullen (or Manager Action) documented in this encounter Medications at Time of Discharge Medication Sig Dispensed Refills Start Date End Date vancomycin (AKA Administer 2,500 mg 44124 mg 0 06/01/2010 06/11/2010 VANCOCIN) 1000 MG [...] Hickey RN - 06/01/2010 1:37 PM CDT [facility] Discharge Note - Nursing Admission Date/Time: [...] Bocanegra OTR/L - 06/01/2010 1:02 PM CDT [facility] Occupational Therapy Progress Note This patient is scheduled to be seen by Occupational Therapy. VLADIMIR Oliveros (pager) OT Dept #: [phone] - OT Weekend Pager #: [phone] - Rehabilitation [place] Main #: [phone] Tania Brantley Ruben - 06/01/2010 12:21 PM CDT [facility] Care Management Discharge Note Admission Date/Time: 05/26/2010 7:05 AM Attending MD: Maurice Baron Discharge Plan: Anticipated Discharge Date: 06/01/10 Anticipated Discharge Time: 13:00 Patient to be discharged: with Home Care Service: [facility] for home PT. Patient to be accompanied by: spouse. Transportation arranged for discharge: has own wc here Pt has been cleared for dc today. Will need 10 days of IV Vanco. Infusions have been arranged through [address] in [place]. Have been in contact with kurt Magañaboathouse keeper who is aware pt discharging today and [...] her to cosign and send to [facility]. Pt also open to HC for home [...] in coumadin Clinic: Phone: and Fax: [facility]; [facility]: Phone: and Fax: [facility]: Phone: and Fax: Followup: as ordered on dc instructions. Discharge Disposition Code: 06: Discharged or transferred to home under care of organized home health service organization Report completed by Tania Brantley RN, Pager Number [phone] --- End of Report --- Tania Brantley - 06/01/2010 11:39 AM CDT [facility] DISCHARGE ORDERS Patient Name: Jie Cullen Date of : 1945 Allergies: Zaroxolyn and Oxycodone Immunizations: Most Recent Immunizations Administered Date(s) Administered ??? Flu Vac (3+ yrs) 10/06/2009 ??? H1n1 Miv Csl 3+ Yr (Injected) 12/06/2009 ??? Pneumococcal, PPSV23 10/06/2009 Current Attending Provider: Maurice Baron MD Discharge Procedure Orders Clinic Referral Order Comments: CLINIC: [facility]: Neurosurgery; [phone]; [address] [place] [address] DOCTORS NAME: Dr. Maurice Baron WHEN TO BE SEEN: On (date) 06/19 at 2:00 REASON FOR APPOINTMENT: MDfollow up Discharge Instructions Order Comments: Monitor incision daily for signs of infection (redness, drainage, warmth). Call the Neurosurgery Clinic at [phone] with any incisional changes. Keep incision dry. Cover with Nexcare or Tegaderm for showers, for one week, and remove immediately after shower. Leave incision open to air. Call the doctor for these danger signs Order Comments: Any changes in your incision: redness, swelling, drainage, tenderness, or fever greater than 100.5. Any changes in sensation or decrease in strength to your extremeties. Neurosurgery clinic [phone]. ADMIT TO HOME CARE Order Comments: AGENCY NAME: [facility] [phone]. DATE OF FIRST VISIT: 1-2 days after [...] to draw) CLINIC REFERRAL Order Comments: CLINIC: [facility]; [facility] [phone] DOCTORS NAME: Dr. Arjun Mcmahan WHEN TO [...] mg intravenously daily for 10 days. Qty: 14569 mg Refills: 0 CONTINUE these medications which [...] have been electronically signed. (In accordance with [place] Fed. Regulation Set, Fed A0232 - Types of Authentication) Discharging MD: Dr. Baron Today's Date: 06/01/10 --- End of Report --- Tania Brantley - 06/01/2010 11:33 AM CDT [facility] Transfer Orders to Home Health Care Patient Name: Jie Cullen Date of : 1945 Allergies: Zaroxolyn and Oxycodone Immunizations: Most Recent Immunizations Administered Date(s) Administered ??? Flu Vac (3+ yrs) 10/06/2009 ??? H1n1 Miv Csl 3+ Yr (Injected) 12/06/2009 ??? Pneumococcal, PPSV23 10/06/2009 Current Attending Provider: Maurice Baron MD Discharge Procedure Orders Clinic Referral Order Comments: CLINIC: [facility]: Neurosurgery; [phone]; [address] [place] [address] DOCTORS NAME: Dr. Maurice Baron WHEN TO BE SEEN: On (date) 06/19 at 2:00 REASON FOR APPOINTMENT: MDfollow up Discharge Instructions Order Comments: Monitor incision daily for signs of infection (redness, drainage, warmth). Call the Neurosurgery Clinic at [phone] with any incisional changes. Keep incision dry. Cover with Nexcare or Tegaderm for showers, for one week, and remove immediately after shower. Leave incision open to air. Call the doctor for these danger signs Order Comments: Any changes in your incision: redness, swelling, drainage, tenderness, or fever greater than 100.5. Any changes in sensation or decrease in strength to your extremeties. Neurosurgery clinic [phone]. ADMIT TO HOME CARE Order Comments: AGENCY NAME: [facility] [phone]. DATE OF FIRST VISIT: 1-2 days after [...] to draw) CLINIC REFERRAL Order Comments: CLINIC: [facility]; [facility] [phone] DOCTORS NAME: Dr. Arjun Mcmahan WHEN TO [...] mg intravenously daily for 10 days. Qty: 78852 mg Refills: 0 CONTINUE these medications which [...] have been electronically signed. (In accordance with [place] Fed. Regulation Set, Fed A0232 - Types of Authentication) Discharging MD: Dr. Baron Today's Date: 06/01/10 --- End of Report --- George Jose - 06/01/2010 10:43 AM CDT Infectious Disease Consult Service Plan for discharge: Patient to be discharged to: Home He will follow-up at the [facility] in [place] for intravenous infusion of vancomycin 2500 mg daily. Vancomycin stop date: 06/09/10 Patient does not need Infectious Diseases follow-up with us. Laboratory Monitoring: Vancomycin trough on SaturdayJune 05 Patient should follow-up with his primary prior to completing the vancomycin on 06/09/10 Patient's primary physician is Dr. Arjun Tang MD Geetha Osuna RN - 06/01/2010 7:49 AM CDT [facility] NeuroSurgery Progress Note 06/01/2010 Vitals Temp [...] INR 3.0 05/22/10 12:05 PM ??? CSFRBC 76707 05/26/10 10:30 AM ??? CSFRBC 38456 05/26/10 10:30 AM ??? CSFWBC 318* 05/26/10 [...] am Geetha Osuna RN Neurosurgery Nurse Clinician [phone] I, Geetha Osuna RN, am serving as [...] Salinas RN - 05/31/2010 9:53 PM CDT [facility] Progress Note (Nursing) Identify/Problem(s): Post Op [...] Mckayla Hernandez - 05/31/2010 8:37 PM CDT [facility] Clinical Pharmacy Follow Up Kinetics Note Assessment: Jie Cullen, [id number], is a 65 yr year old male [...] any questions. Mckayla Hernandez, PharmD Pager Number [phone] --- End of Report --- Priti Hickey RN - 05/31/2010 8:07 PM CDT Problem: Falls Risk Goal: Moderate Risk (5-10): Fall Prevention I applied all active moderate risk falls prevention interventions. Priti Hickey RN - 05/31/2010 6:37 PM CDT [facility] Progress Note (Nursing) Identify/Problem(s): Comfort Mobility [...] Tania Miranda - 05/31/2010 3:44 PM CDT [facility] Care Management Want Ad Receiver Follow Up Note Admission Date/Time: 05/26/2010 7:05 AM Attending MD: Maurice Barno Date Chart reviewed; discussed with interdisciplinary team [...] so pt can receiveiv infusions at the [address] [place] Mcmahan starts clinic at 13:00 tomorrow. I will fax her the dc orders to for her signature and she will then fax to hospital. Roderick spoke with the [facility], Archana at [facility], ph: and fax: . She confirms they [...] completed by Tania Brantley RN, Pager Number [phone] --- End of Report --- Martha Thomas - 05/31/2010 3:26 PM CDT [facility] PM&R Progress Note () Date of [...] South MD --- End of Report --- Merchant Mariner, Lucy Clemente - 05/31/2010 10:20 AM CDT [facility] NeuroSurgery Progress Note Pt doing well [...] INR 3.0 05/22/10 12:05 PM ??? CSFRBC 23518 05/26/10 10:30 AM ??? CSFRBC 12518 05/26/10 10:30 AM ??? CSFWBC 318* 05/26/10 [...] Dwyer RN - 05/31/2010 3:08 AM CDT [facility] Progress Note (Nursing) Identify/Problem(s): Comfort/pain Desired [...] Salinas RN - 05/30/2010 10:18 PM CDT [facility] Progress Note (Nursing) Identify/Problem(s): Post Op [...] Huerta PharmD - 05/30/2010 3:54 PM CDT [facility] Clinical Pharmacy Initial Kinetics Note Assessment: Jie Cullen, [id number], is a 65 yr year old male started on vancomycin 2g iv q24h for TRANSLATOR coverage s/p baclofen pump removal due to infection Data: Last Height: 5' 10 (177.8 cm) Last Wt - Scale: 215 lb (97.523 kg) [place] Body Weight: 73 kg Dosing Weight: 83 [...] to follow. Britni Huerta PharmD Pager Number: [phone] --- End of Report --- Tania Brantley - 05/30/2010 2:59 PM CDT [facility] Care Management Want Ad Receiver Initial Assessment Admission Date/Time: 05/26/2010 7:05 AM Attending MD: Maurice Baron Data Jie Cullen was referred to this Want Ad Receiver for discharge planning. Chart reviewed, discussed with interdisciplinary team, as well as with patient and family. 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 Insurance: Payor: MEDICARE PART B ONLY [id number] Plan: MEDICARE PART B ONLY Product Type: Medicare Current Living Situation: Patient lives with their spouse. Support System: family and friends Services Involved: Home PT through [facility] in [place]. Ph: and Fax: Additional Data: Pt's primary MD is Dr. Arjun Mcmahan at the [facility] Coordination of Care and Referrals: Provided patient/family [...] could go into the ER at the [address] for iv infusions. I had spoken with boathouse keeper in the ED at hospital who told [...] need to see what [facility] can provide for pt. Pt [...] completed by Tania Brantley RN, Pager Number [phone] --- End of Report --- Martha Thomas - 05/30/2010 1:24 PM CDT [facility] PM&R Progress Note () Date of service: 05/30/2010 Diagnosis: Encounter Diagnoses Code Name Primary? 32383 CAREPLAN: BACLOFEN ??? 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 Martha South MD [phone] --- End of Report --- Merchant Mariner, Lucy Clemente - 05/30/2010 1:21 PM CDT [facility] NeuroSurgery Progress Note Pt is doing [...] INR 3.0 05/22/10 12:05 PM ??? CSFRBC 93217 05/26/10 10:30 AM ??? CSFRBC 98170 05/26/10 10:30 AM ??? CSFWBC 318* 05/26/10 [...] Archana Pace - 05/30/2010 12:28 PM CDT [facility] Product Developer Department Progress Note Grave Digger Notes: Initial assessment for spiritual and emotional [...] skills and resources. They are appreciative of arm maker and fashion director party plan sales visits and prayers. I offered prayers for healing and strength. Plan: Product Developer will continue following for ongoing spiritual and emotional support to pt/family. Report Completed by: Archana Pace, [facility] Staff Grave Digger --- End of Report --- Malathi Domingo RN - 05/30/2010 10:58 AM CDT [facility] Progress Note (Nursing) Identify/Problem(s): comfort Desired [...] Long RN - 05/30/2010 3:45 AM CDT [facility] Progress Note (Nursing) Identify/Problem(s): Post op, [...] Salinas RN - 05/29/2010 9:48 PM CDT [facility] Progress Note (Nursing) Identify/Problem(s): Post OP [...] Cerda RN - 05/29/2010 6:58 PM CDT [facility] Progress Note (Nursing) Identify/Problem(s): Post op status Desired Outcome(s): Will be stable Evaluation: VSS, patient denies pain, patient tolerating clear liquid diet. Dressing to abdomen and back are dryand intact, green patent. at bedside, no other complaints at this time. Plan: Continue to monitor. Tania Cerda, VALERIE --- End of Report --- Tania Brantley - 05/29/2010 2:26 PM CDT [facility] Want Ad Receiver Progress Note Pt has gone to OR. Briefly met with . Pt well known to me from previous admissions. Informed Lazara would attempt to meet with them tomorrow. She feels pt doing better and in pretty good sprits. Report completed by Tania Brantley RN, Pager Number [phone] --- End of Report --- Garth Rodriguez RN - 05/29/2010 11:40 AM CDT [facility] Nursing Pre-Op Note Admission Date/Time: 05/26/2010 7:05 AM Time of transport to the Operating Room: 1140 Transported by: Litter/cart Pre-Op checklist complete?: Yes Report Completed by: Romelia Rodriguez RN --- End of Report --- Lisy Durand RN - 05/29/2010 3:15 AM CDT [facility] Progress Note (Nursing) Identify/Problem(s): Comfort [...] Bardales RN - 05/28/2010 10:45 PM CDT [facility] Progress Note (Nursing) Identify/Problem(s): Comfort Desired [...] Dietz RN - 05/28/2010 10:30 AM CDT [facility] Progress Note (Nursing) Identify/Problem(s): Comfort Desired [...] Dietz RN --- End of Report --- rCistine Henson - 05/28/2010 10:23 AM CDT 05/28/2010 [...] mcg/mL. Dose following reprogrammin mcg/day simple continuous. [place] volume 35.7mL, Alarm date 07/09/2011. A/P: 65 [...] Contact Dr. Cristine Henson from PMR at [phone] if questions or if displaying symptoms of withdrawal (markedly increased muscle tone, itching, decrease in seizure threshold). 6. Recommend continuing home bowel program of enemeez every other day, next due 05/29, if able to schedule prior to surgery. Total time: 25. Counseling and Coordination time: 20. Mónica Saldana - 05/28/2010 6:28 AM CDT [facility] Progress Note (Nursing) Identify/Problem(s): Comfort Desired [...] Bardales RN - 05/27/2010 8:57 PM CDT [facility] Progress Note (Nursing) Identify/Problem(s): Comfort Hgb [...] Cristine Henson - 05/27/2010 1:17 PM CDT [facility] PM&R Progress Note () Date of [...] Simple continuous mode 2. Dose 127 mcg/day [place] volume: 35.8 mL Low reservoir alarm date: [...] Contact Dr. Cristine Henson from PMR at [phone] if questions or if displaying symptoms of withdrawal (markedly increased muscle tone, itching, decrease in seizure threshold). Total time: 25. Counseling and Coordination time: 20. Cristine Henson MD --- End of Report --- Ozzy Dietz RN - 05/27/2010 12:40 PM CDT [facility] Progress Note (Nursing) Identify/Problem(s): Comfort Desired [...] Walters RN - 05/26/2010 10:57 PM CDT [facility] Progress Note (Nursing) Identify/Problem(s): comfort Desired [...] Mancuso RN - 05/26/2010 6:39 PM CDT [facility]. MD Notified Note Name of MD notified: Yomi Miller Time of MD notification: 1800 hours and 30 minutes Reason: Should patient received enoxaparin injection tonight since he had LP today Response: Patient should receive enoxaparin tonight. Arjun Wlaters RN --- End of Report --- Arjun Mancuso RN - 05/26/2010 5:56 PM CDT Problem: Falls Risk Goal: Moderate Risk (5-10): Fall Prevention I applied all active moderate risk falls prevention interventions. Roula Zuniga X - 05/26/2010 2:30 PM CDT [facility] Clinical Pharmacy Medication Reconciliation Note Medication History: per [facility] Medications marked Taking as of 05/26/10 encounter (Hospital Encounter) with MAURICE BARON: acetaminophen (AKA TYLENOL) 325 MG tablet Take 1-2 Tabs by mouth every 4 hours as needed for Pain. atorvastatin (LIPITOR) 40 MG tablet Take 1 Tab by mouth daily. baclofen (AKA LIORESAL) 10 MG tablet Take 1 Tab by mouth. Wean schedule:Take 10mg three times a day for 6 doses, borb53ma twice a day for 4 doses, mwtu42hn daily for 2 days, iirr32rl twice daily NEEDED BACLOFEN IT 220 mcg [...] condition. PHARMACIST NAME: Roula Lam Phone/Pager #: [phone] --- End of Report --- documented in this encounter Procedure Notes Maurice Baron - 07/12/2010 10:00 AM CDT DATE OF SURGERY: 05/26/2010 SURGEON: Maurice Baron MD OPERATIONS AND MAINTENANCE TECHNICAN: None. ANESTHESIA: Local plus sedation. PREOPERATIVE DIAGNOSES: [...] 07/12/2010 10:00:55 Transcribed: 07/12/2010 22:40:18 Doc #: [id number] cc:Maurice Baron MD, Referring Provider 1 Page 1 Patient Name: JIE CULLEN INPATIENT OPERATIVE REPORT CONFIDENTIAL MEDICAL RECORD [address] [address] Page 1 Patient: JIE CULLEN Location: [facility] HPN: [id number] Admit Date: 05/26/2010 Date of : 1945 Discharge Date: 06/01/2010 Age: 65Y INPATIENT OPERATIVE REPORT Maurice Baron - 06/26/2010 5:19 PM CDT DATE OF SURGERY: 05/29/2010 STAFF SURGEON: Maurice Baron MD OPERATIONS AND MAINTENANCE TECHNICAN: Lucy Parker, [facility] PREOPERATIVE DIAGNOSES: 1. Status post excision [...] were dressed. The patient returns to his [facility] woken up, extubated and taken stable to [facility]. Procedure well tolerated with no apparent complication s. Needle and sponge counts correct and verified at the end of the case. EBL was approximately 25 mLor less. Maurice Baron MD kda Dictated: 06/26/2010 17:19:06 Transcribed: 06/27/2010 08:10:23 Doc #: [id number] cc:Maurice Baron MD, Referring Provider 1 Page 1 Patient Name: JIE CULLEN INPATIENT OPERATIVE REPORT CONFIDENTIAL MEDICAL RECORD [address] [address] Page 1 Patient: JIE CULLEN Location: [facility] HPN: [id number] Admit Date: 05/26/2010 Date of : 1945 Discharge Date: 06/01/2010 Age: 65Y INPATIENT OPERATIVE REPORT Priti Rboin RN - 05/31/2010 10:38 AM CDT [facility] PICC Line Insertion Procedure Note Singe Lumen PICC Site One Date of Service: 05/31/10 UNIVERSAL PROTOCOL: Procedure Location: S10 Condition: Elective Consent: Imformed Written Patient Identification: Verified Time Out: Performed Site Prep: Chloraprep Protective Barriers: Maximum Barriers Used including Handwashing, Sterile Gown, Gloves, Mask, Eye Protection & Cap PROCEDURE: Insert/Remove: Inserted Inserted By?: PICC Services Indication: Antibiotics Disc Pad Grinding Machine Feeder: Power PICC Size (Yakut): 5 Length (cm): 46 CM Lot #: [id number] Location: Right or Left: Right Site: Basilic Dressing: Tegaderm w/antimicrobial patch ULTRASOUND GUIDED ACCESS. Priti Agudelo RN, CRNI --- End of Report --- Lucy Parker - 05/29/2010 3:28 PM CDT [facility] Brief Operative Progress Note Surgery Date: 05/29/2010 Primary Surgeon: Surgeon(s): Maurice Baron Assistants: Lucy Parker PA-C Post-op Diagnosis: BACLOFEN PUMP INFECTION Procedure: REMOVAL OF BACLOFEN PUMP EBL: 10 mL Complications / Findings: None/ see dictated operative note Plan: Transfer back to [address] [place] [address] Resume pre operative orders IV valium prn [...] The procedure was medically necessary for an surgical assistant because Dr. Baron needed the operative exposure and assistance that I provided. This allowed him to safely and efficiently operate. It was also important that I help ligate blood vessels to maintain hemostasis and reduce the bleeding risk. The assistance that I provided reduced operative time which meant less general anesthetic for the patient. Lucy Parker PA-C --- End of Report --- [facility]IA, PROVIDER - 05/29/2010 12:00 AM CDT [facility], PROVIDER - 05/29/2010 12:00 AM CDT [facility], [facility] - 05/29/2010 12:00 AM CDTAssociated Order(s): EKG IP; EKG IP [facility], PROVIDER - 05/29/2010 12:00 AM CDT [facility], PROVIDER - 05/29/2010 12:00 AM CDT [facility], PROVIDER - 05/26/2010 12:00 AM CDT [facility], PROVIDER - 05/26/2010 12:00 AM CDT [facility]ES[facility], PROVIDER - 05/26/2010 12:00 AM CDT [facility], PROVIDER - 05/26/2010 12:00 AM CDT documented in this encounter Consult Notes Stephan Anderson MD - 05/30/2010 11:24 AM CDTAssociated Order(s): INFECTIOUS DISEASE INPT CONSULT [facility]. Consultation Note () Date of service: [...] which went uneventfully. However was admitted to [facility] on 04/28 for spiking fever, chills. [...] with decreased appetite. He was admitted to [facility] on 05/26/2010nd had CSF drain that [...] 2000 S/p resection by Dr. Glasgow at [facility] in 05/2000. However resection was incomplete due [...] postop bleed cmpl ??? Total knee replacement (46838) right ??? Ivc filter placement 1999 Current [...] 1 at baseline. Lives with his in [place]. Review of Systems: A complete ROS was [...] CSF 05/26: protein 248, glucose 25, RBC 89368, nucleated cells 318 with 80%PMN. CSF 04/30 [...] spent in counseling and coordinating care. A languages and literature instructor was not used during this exam. Report Completed by: Stephan ANDERSON MD, PGY-2, [phone] --- End of Report --- Relevant Reference [...] 2:12 PM CDTAssociated Order(s): PM&R INPT CONSULT [facility] PM&R Progress Note () Date of [...] 2000 S/p resection by Dr. Glasgow at [facility] in 05/2000. However resection was incomplete due [...] UNITS ORDERED 2 - ??? UNIT NUMBER [id number] - ??? BLOOD COMPONENT TYPE THAWED PLASMA - ??? STATUS OF UNIT ISSUED - ??? TRANSFUSION STATUS OK TO TRANSFUSE - ??? UNIT NUMBER [id number] - ??? BLOOD COMPONENT TYPE THAWED PLASMA - ??? STATUS OF UNIT ISSUED - ??? TRANSFUSION STATUS OK TO TRANSFUSE - TYPE & CROSSMATCH (TRANSFUSE NOW) Component Value Range ??? ABO/RH(D) A NEGATIVE - ??? ANTIBODY SCREEN NEGATIVE - ??? CROSSMATCH EXPIRES 05/29/2010 - ??? UNIT NUMBER [id number] - ??? BLOOD COMPONENT TYPE [place] RED KNIFER UP - ??? STATUS OF UNIT ISSUED - ??? TRANSFUSION STATUS OK TO TRANSFUSE - ??? CROSSMATCH RESULT COMPATIBLE - ??? UNIT NUMBER [id number] - ??? BLOOD COMPONENT TYPE [place] RED KNIFER UP - ??? STATUS OF UNIT ISSUED - [...] ??? XANTHOCHROMIA Present - ??? RBC, CSF 39137 - (/ul) ??? NUCLEATED CELLS, CSF 318 (*) 0-5 (/ul) ??? PMN'S 80 - (%) ??? LYMPHOCYTES 9 - (%) ??? MONOCYTE/MACROPHAGE 11 - (%) FIRST CSF CELL COUNT & DIFF Component Value Range ??? SOURCE Cerebrospinal Fluid - ??? DESCRIPTION, CSF - Value: Bloody Slight ??? TUBE # 1 - ??? XANTHOCHROMIA Present - ??? RBC, CSF 65613 - (/ul) ??? NUCLEATED CELLS, CSF 352 (*) 0-5 (/ul) ??? LYMPHOCYTES - (%) SPINAL FLUID CULTURE & SMEAR Component Value Range ??? SPECIMEN DESCRIPTION Cerebrospinal Fluid - ??? SPECIAL REQUESTS Unspecified - ??? GRAM SMEAR No Organisms Seen - ??? GRAM SMEAR - Value: Critical value results given to and read back by Mendoza OR[place]Cactus [id number] at 11:58 ??? GRAM SMEAR 05/26 to NT - ??? CULTURE - ??? REPORT STATUS - AEROBIC CULTURE Component Value Range ??? SPECIMEN DESCRIPTION Fluid BACLOFEN PUMP - ??? SPECIAL REQUESTS Unspecified - ??? GRAM SMEAR No PMN'S Seen - ??? GRAM SMEAR No Organisms Seen - ??? GRAM SMEAR - Value: Results Called to Mendoza [id number] at 11:59 on 05/26 by NT ??? CULTURE - ??? REPORT STATUS - PROCEDURE NOTE: 05/26/2010 Current settings: Baclofen Concentration 1,000mcg/ml on simple continuous mode Dose: last dose on 05/22 was 213 Mcg/day. Baclofen dose was decreased by 20% and new pump settings are: 1. Simple continuous mode 2. Dose 170.2 mcg/day [place] vol: 35.9 mL Low reservoir 12/14/2010 Assessment/Plan: [...] Organization Address City/State/ZIP Code Phon e Number [address] [address] [place], [place] [phone] XR PORTABLE CHEST 1 VIEW to verify [...] Lucy Colmenares PA-C LAB_1 Performing Organization Address [facility] Phon e Number [address] [address] [place], [place] [phone] (ABNORMAL) HEMOGRAM/PLTS (05/30/2010 12:28 PM CDT) athologist [...] Maurice Baron MD LAB_1 Performing Organization Address [facility] Phon e Number [address] [address] [place], [place] [phone] (ABNORMAL) BASIC METABOLIC PANEL (05/30/2010 12:28 PM [...] Maurice Baron MD LAB_1 Performing Organization Address [facility]/ZIP [facility] Phon e Number [address] [address] [place], [place] [phone] EKG IP (05/29/2010 12:00 AM CDT) Specimen (Source) Anatomical Location Collection Method / Collectio n Time Received Time / Laterality Volume 05/29/2010 Narrative This result has an attachment that is no t available. Transcriptions [facility], PROVIDER - 05/29/2010 12:00 AM CDT Provider [...] Maurice Baron MD LAB_1 Performing Organization Address [facility] Phon e Number [address] [address] [place], [place] [phone] (ABNORMAL) HEMOGRAM/PLTS (05/28/2010 6:43 AM CDT) P [...] Yomi Miller MD LAB_1 Performing Organization Address [facility] Phon e Number [address] [address] [place], [place] [phone] (ABNORMAL) Hemogram with Platelets (05/27/2010 6:52 AM [...] Maurice Baron MD LAB_1 Performing Organization Address [facility] Phon e Number [address] [address] [place], [place] [phone] MR THORACIC SPINE WITH/WITHOUT CONTRAST (05/26/2010 4:52 PM CDT) Anatomical Region Laterality Modality Spine, T-Spine, L-Spine, C-Spine, Skeletal Magnetic Resonance Specimen (Source) Anatomical Collection Method Collection Time Re ceived Time Location / / Volume Laterality 05/26/2010 4:52 PM CDT Narrative 05/26/2010 5:18 PM CDT [facility] THORACIC SPINE MRI ? 05/26/2010 [...] Note Julien Anna - 05/27/2010 [facility] THORACIC SPINE MRI 05/26/2010 INDICATION: Evaluate fluid [...] Organization Address City/State/ZIP Code Phon e Number [address] [address] [place], [place] [phone] XR C-ARM 30-59 MIN (05/26/2010 10:35 AM [...] GD ANAEROBIC CULTURE (05/26/2010 10:30 AM CDT) [facility] Method Time Signature Specimen Fluid BACLOFEN REGIONS Description PUMP Special Unspecified REGIONS Requests Aerobic Cult [id number] REGIONS Number Culture No Anaerobes REGIONS Isolated Report Status Final REGIONS 06/02/2010 Specimen Anatomical Collection Method Collection Time Receive d Time (Source) Location / / Volume Laterality 05/26/2010 10:30 05/26/2010 AM CDT 11:23 AM CDT Noble Singh MD LAB_1 Performing Organization Address [facility] Phon e Number [address] [address] [place], [place] [phone] AEROBIC CULTURE (05/26/2010 10:30 AM CDT) [facility] Method Time Signature Specimen Fluid BACLOFEN REGIONS Description PUMP Special Unspecified REGIONS Requests Gram Smear No PMN'S Seen REGIONS Gram Smear No Organisms REGIONS Seen Gram Smear Results Called REGIONS to Mendoza [id number] at 11:59 on 05/26 by NT Culture No Growth After REGIONS 3 Days Report Status Final REGIONS 05/29/2010 Specimen Anatomical Collection Method Collection Time Receive d Time (Source) Location / / Volume Laterality 05/26/2010 10:30 05/26/2010 AM CDT 11:23 AM CDT Noble Singh MD LAB_1 Performing Organization Address City/[facility]/ZIP [facility] Phon e Number [address] [address] [place], [place] [phone] ANAEROBIC CULTURE (05/26/2010 10:30 AM CDT) Component Value Ref Test Analysis Performed At [facility] [employer] Range Method Time Signature Specimen Cerebrospinal REGIONS Description Fluid Special Unspecified REGIONS Requests Aerobic Cult [id number] REGIONS Number Culture No Anaerobes REGIONS Isolated Report Status Final 06/02/2010 [facility]IONS Specimen Anatomical Collection Method Collection Time Receive d Time (Source) Location / / Volume Laterality 05/26/2010 10:30 05/26/2010 AM CDT 11:18 AM CDT Noble Singh MD LAB_1 Performing Organization Address City/[facility]/ZIP Code Phon e Number [address] [address] [place], [place] [phone] SPINAL FLUID CULTURE & SMEAR (05/26/2010 10:30 AM CDT) Component Value Ref Test Analysis Performed At [facility] Method Time Signature Specimen Cerebrospinal REGIONS Description Fluid Special Unspecified REGIONS Requests Gram Smear No Organisms REGIONS Seen Gram Smear Critical value REGIONS results given to and read back by Kelly ORLinda [id number] at 11:58 Gram Smear 05/26 to NT REGIONS Culture No Growth After REGIONS 3 Days Report Status Final 05/29/2010 [facility] Specimen Anatomical Collection Method Collection Time Receive d Time (Source) Location / / Volume Laterality 05/26/2010 10:30 05/26/2010 AM CDT 11:18 AM CDT Noble Singh MD LAB_1 Performing Organization Address [facility] Phon e Number [address] [address] [place], [place] [phone] (ABNORMAL) FIRST CSF CELL COUNT & DIFF (05/26/2010 10:30 AM CDT) Component Value Ref Test Analysis Performed At [facility] Method Time Signature Source Cerebrospinal REGIONS Fluid Description, CSF Bloody REGIONS Slight Tube # 1 REGIONS Xanthochromia Present REGIONS RBC, CSF 91357 /ul REGIONS Nucleated Cells, 352 (H) 0 - 5 REGIONS CSF /ul PMN's 65 % REGIONS Lymphocytes 15 % REGIONS Monocyte/Macroph 20 % REGIONS age Specimen Anatomical Collection Method Collection Time Receive d Time (Source) Location / / Volume Laterality 05/26/2010 10:30 05/26/2010 AM CDT 11:11 AM CDT Noble Singh MD LAB_1 Performing Organization Address City/[facility]/ZIP [facility] Phon e Number [address] [address] [place], [place] [phone] (ABNORMAL) SECOND CSF CELL COUNT & DIFF (05/26/2010 10:30 AM CDT) Component Value Ref Test Analysis Performed At [facility] Method Time Signature Source Cerebrospinal REGIONS Fluid Description, CSF Bloody REGIONS Slight Tube # 4 REGIONS Xanthochromia Present REGIONS RBC, CSF [address] /ul REGIONS Nucleated Cells, 318 (H) 0 - 5 REGIONS CSF /ul PMN's 80 % REGIONS Lymphocytes 9 % REGIONS Monocyte/Macroph 11 % REGIONS age Specimen Anatomical Collection Method Collection Time Receive d Time (Source) Location / / Volume Laterality 05/26/2010 10:30 05/26/2010 AM CDT 11:03 AM CDT Noble Singh MD LAB_1 Performing Organization Address [facility] Code Phon e Number [address] [address] [place], [place] [phone] (ABNORMAL) CSF TOTAL PROTEIN (05/26/2010 10:30 AM CDT) [facility] Method Time Signature Source Cerebrospinal REGIONS Fluid Total 248 (H) 12 - 60 REGIONS Protein, CSF mg/dl Comment: The use if this assay to monitor or diag nose patients has not been approved for this specimen type by the FDA or construction equipment overhauler of this assay. Specimen Anatomical Collection Method Collection Time Receive d Time (Source) Location / / Volume Laterality 05/26/2010 10:30 05/26/2010 AM CDT 10:51 AM CDT Noble Singh MD LAB_1 Performing Organization Address [facility] Code Phon e Number [address] [address] [place], [place] [phone] (ABNORMAL) CSF, GLUCOSE (05/26/2010 10:30 AM CDT) [facility] Method Time Signature Source Cerebrospinal REGIONS Fluid Glucose, CSF 25 (L) 40 - 70 REGIONS mg/dl Specimen Anatomical Collection Method Collection Time Receive d Time (Source) Location / / Volume Laterality 05/26/2010 10:30 05/26/2010 AM CDT 10:51 AM CDT Noble Singh MD LAB_1 Performing Organization Address City/[facility] Phon e Number [address] [address] [place], [place] [phone] TYPE & CROSSMATCH (TRANSFUSE NOW) (05/26/2010 9:30 AM CDT) [facility] Method Time Signature ABO/RH(D) A NEGATIVE REGIONS Antibody Screen NEGATIVE REGIONS Crossmatch 05/29/2010 REGIONS Expires Unit Number [id number] REGIONS Blood Component LEUK RED KNIFER UP REGIONS Type Status of Unit Issued, final REGIONS Transfusion OK TO REGIONS Status TRANSFUSE Crossmatch COMPATIBLE REGIONS Result Unit Number [id number] REGIONS Blood Component [place] RED KNIFER UP REGIONS Type Status of Unit Issued, final REGIONS Transfusion OK TO REGIONS Status TRANSFUSE Crossmatch COMPATIBLE REGIONS Result Unit Number [id number] REGIONS Blood Component [place] RED KNIFER UP REGIONS Type Status of Unit Issued, final REGIONS Transfusion OK TO REGIONS Status TRANSFUSE Crossmatch COMPATIBLE REGIONS Result Unit Number [id number] REGIONS Blood Component [place] RED KNIFER UP REGIONS Type Status of Unit Issued, final REGIONS Transfusion OK TO REGIONS Status TRANSFUSE Crossmatch COMPATIBLE REGIONS Result Specimen Anatomical Collection Method Collection Time Receive d Time (Source) Location / / Volume Laterality 05/26/2010 9:30 AM 0 9:34 CDT AM CDT Maurice Baron MD LAB_1 Performing Organization Address [facility] Phon e Number [facility] [address] [place] [address] [place], [place] [phone] LAB TO PREPARE THAWED PLASMA (05/26/2010 9:29 AM CDT) [facility] gist Method Time Signature Units Ordered 2 REGIONS Unit Number [id number] REGIONS Blood Component THAWED PLASMA REGIONS Type Status of Unit Issued, final REGIONS Transfusion OK TO REGIONS Status TRANSFUSE Unit Number [id number] REGIONS Blood Component THAWED PLASMA REGIONS Type Status of Unit Issued, final REGIONS Transfusion OK TO REGIONS Status TRANSFUSE Specimen Anatomical Collection Method Collection Time Receive d Time (Source) Location / / Volume Laterality 05/26/2010 9:29 AM 0 9:41 CDT AM CDT Maurice Baron MD LAB_1 Performing Organization Address [facility] Phon e Number [facility] [address] [place] [address] [place], [place] [phone] (ABNORMAL) aPTT (Activated Partial Thromboplastin Time) (05/26/2010 8:12 AM CDT) P athologist Signature PTT 42.4 (H) 24.0 - 37.0 REGIONS sec Specimen Anatomical Collection Method Collection Time Receive d Time (Source) Location / / Volume Laterality 05/26/2010 8:12 AM 0 8:32 CDT AM CDT Maurice Baron MD LAB_1 Performing Organization Address City/[facility]/ZIP Code Phon e Number [address] [address] [place], [place] [phone] (ABNORMAL) INR/Protime (PT/INR) (05/26/2010 8:12 AM CDT) P athologist Signature Protime 20.1 (H) 12.0 - 14.5 REGIONS sec INR 1.7 REGIONS Specimen Anatomical Collection Method Collection Time Receive d Time (Source) Location / / Volume Laterality 05/26/2010 8:12 AM 0 8:32 CDT AM CDT Maurice Baron MD LAB_1 Performing Organization Address [facility] Phon e Number [address] [address] [place], [place] [phone] documented in this encounter Visit Diagnoses Diagnosis 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 Current Intake/Digestive Problems: no problems noted Dietary Intake Since Admission: consuming 75-100% of documented meals. Food and Nutrition-Related History: Diet History: Regular diet Intake/Digestive Problems FORMULATION CHEMIST: no problems noted Pertinent Biochemical Data, Medical [...] 320.89B Meningitis due to Bacteria Yes ??? [address] CAREPLAN: BACLOFEN ??? 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 Corrie Buckner PT Phone number is [phone] Pager: Pager number is: [phone] --- End of Report --- Initial Assessments - Cheli Ruiz RN - 05/26/2010 1:50 PM CDT [facility] Med-Surg / ICU / Rehab [...] Assist: (not recorded) Functional Screening: (not recorded) PSYCHOSOCIAL/SPIRITUAL/JEHOVAH'S WITNESS/CULTURAL/ABUSE/CHEMICAL Suicide Health Inventory Do you currently have [...] issues for which support from the hospital arm maker might be helpful to patient and/or family? [...] 05/27/2010 12:20 PM CDT 20 g lidocaine-epinephrine 1-1:291273 % injection 3 Given 0 05/26/2010 10:16 AM CDT 3 mL mL 3 mL, Subcutaneous, INTRA-OP, Starting on Sat05/26/10 at 1259, For 1 dose, Hazardous waste. [facility]: dispose of in [place]. LORazepam [...]
--- OUTSIDE RECORDS SUMMARY | 2022-07-04 15:14 | XMS_ITS | Encounter Summary ---
:1945 Author Organization [facility] Address [address] [place] [address] Care Team Providers Name Role Phone Unavailable Primary Care Provider Unavailable Reason for Visit Reason Onset Date Comments FEVER 06/06/2010 Encounter Details Date Type Department Care Team Description 06/06/2010 Telephone Careline Margo Del Toro RN FEVER [address] [place], [place] [address] Social History Tobacco Use Types [...] completed lab work and test results to [facility]. If the team has any questions she can be reached at [phone]. This medical technical writer did explain that we would continue [...] Neff at the clinic. Cell phone number [phone]. voiced understanding and agrees with plan.Loretta Godinez [...] 06/06/2010 7:45 PM CDT Emergency transfer from foreman/project manager Started the IV Vancomycin last week on ? 05/31 , discharged on 06/01 from [facility], Dr Gurinder Neff Admitted for meningitis - dx 2 weeks earlier and never got better. On 05/26 another LP was done and he had a pump system removed and Vancomycin started. He goes daily to the [facility] Temp 10 1.6 at 7:15 pm - [...] admitted he should be taken back to [facility] ED now, if not do [...] Encounter routed to Dr Neff Care Team/Dr Galindo request - nurse from clinic will cb to pt on 06/07 to see how he is doing Advised [facility] ED tonight if sx worsening at all Patient/caller encouraged to call back to the Careline at # [phone] with any questions and advised to call back or seek immediate care for worsening symptoms. Patient/caller encouraged to follow up with PCP/Clinic as needed . Patient/caller verbalized understanding of recommendations and is agreeable to plan. Margo Del Toro RN [facility] documented in this encounter Plan of Treatment Not on filedocumented as of this encounter Visit Diagnoses Not on filedocumented in this encounter
--- OUTSIDE RECORDS SUMMARY | 2022-07-04 15:14 | XMS_ITS | Encounter Summary ---
:1945 Author Organization [facility] Address [address], [place] [address] Care Team Providers Name Role Phone Unavailable [...]
--- OUTSIDE RECORDS SUMMARY | 2022-07-04 15:14 | XMS_ITS | Encounter Summary ---
:1945 Author Organization [facility] Address [address] [place] [address] Care Team Providers Name Role Phone Unavailable Primary Care Provider Unavailable Encounter Details Date Type Department Care Team Description 05/31/2010 Imaging [facility] [address] [place] [address] Social History Tobacco Use Types Packs/Day Years [...]
--- OUTSIDE RECORDS SUMMARY | 2022-07-04 15:14 | XMS_ITS | Encounter Summary ---
:1945 Author Organization [facility] Address [address] [place] [address] Care Team Providers Name Role Phone Unavailable Primary Care Provider Unavailable Reason for Visit Reason Comments Post Hospital Discharge Follow Up Encounter Details Date Type Department Care Team Description 06/02/2010 Telephone Vp Marketing Brittny Leyva, [facility] [address] - concession manager [place] [id number] [facility] [address] [place], [place] [phone] [place] [id number] Social History Tobacco Use Types Packs/Day Years [...] DUE TO POSSIBLE INFECTION and discharged from [facility] on 06/01/10 to home. Spoke with patient and spouse. Name of spanish speaking nanny and contact information WADE. Verbal permission obtained to talk to spanish speaking nanny? Yes Patient having difficulty with ADL???s? yes [...] to call Careline and number to call: [phone] or Confirmed using teach back method that [...] CLINIC REFERRAL CLINIC: [facility]; [facility] [phone] DOCTORS NAME: Dr. Loretta Mcmahan WHEN TO BE SEEN: On (date) June 08 at 2:30 pm REASON FOR APPOINTMENT: Hospital follow-up, orders to dc picc line once vanco completed on June 09 CLINIC: [facility]: Neurosurgery; [phone]; [address] [place] [address] DOCTORS NAME: Dr. Garry Neff WHEN TO [...]
--- OUTSIDE RECORDS SUMMARY | 2022-07-04 15:14 | XMS_ITS | Encounter Summary ---
:1945 Author Organization [facility] [employer] Address [address], [place] [address] Care Team Providers Name Role Phone Unavailable Primary Care Provider Unavailable Reason for Visit Reason Onset Date Comments FOLLOW-UP,[facility] 06/02/2010 Encounter Details Date Type Department Care Team Description 06/02/2010 Telephone [facility] S10 Jean-Paul Aviles FOLLOW-UP,[address] [address] [place] [address] [phone] (Wo rk) Social History Tobacco Use Types [...]
--- OUTSIDE RECORDS SUMMARY | 2022-07-04 15:15 | XMS_ITS | Encounter Summary ---
:1945 Author Organization [facility] Address [address] [place] [address] Care Team Providers Name Role Phone Unassigned, Provider Primary Care Provider Unavailable Reason for Visit Reason Onset Date Comments Medication Questions 05/18/2010 Encounter Details Date Type Department Care Team Description 05/18/2010 Telephone Careline Unknown, Physician Medication Questions [address] [place], [place] [address] [place], [place] [phone] Social History Tobacco Use Types Packs/Day [...] ??? HTN (Hypertension) 401.9AE ??? CAREPLAN: BACLOFEN [id number] CURRENT MEDICATIONS: Prior Encounter Medications Medication Sig [...] Which care system is the patient affiliated with?[facility] Situation:Spouse states that pt has chills and a headache. Spouse states pt is taking blood thinnersand the antibiotic that he is taking is raising the effects of the blood thinner. Spouse is wondering if pt should be taking the next dosage of his antibiotic tonight. Background:Pt was released from [facility] on 05/13/10 with diagnosis of meningitis. A nurse will call you back within the next hour. If you have not heard from a nurse, please feel free to call us back at [phone] and state that you are waiting for a callback. documented in this encounter Plan of Treatment Not on filedocumented as of this encounter Visit Diagnoses Not on filedocumented in this encounter Care Teams Back Tender Cylinder Relationship Specialty Start Date End Date Unassigned, Provider PCP - General 11/28/01 05/21/[address] [place] [address] documented as of this encounter
--- OUTSIDE RECORDS SUMMARY | 2022-07-04 15:15 | XMS_ITS | Encounter Summary ---
:1945 Author Organization [facility] Address [address], [place] [address] Care Team Providers Name Role Phone Unavailable [...]
--- OUTSIDE RECORDS SUMMARY | 2022-07-04 15:15 | XMS_ITS | Encounter Summary ---
:1945 Author Organization [facility] Address [address] [place] [address] Care Team Providers Name Role Phone Unassigned, Provider Primary Care Provider Unavailable Reason for Visit Reason Comments Post Hospital Discharge Follow Up Encounter Details Date Type Department Care Team Description 05/16/2010 Telephone Director And Professor Brittny Leyva, Post Hospital [address] - route delivery service driver [place] [id number] [facility] [address] [place], [place] [id number] [place] [address] [phone] Social History Tobacco Use Types Packs/Day Years [...] REVISION OF BACLOFEN PUMP and discharged from [facility] on 05/13/10 to home. Spoke with spouse. Name of peoplesoft programmer and contact information WADE. Verbal permission obtained to talk to peoplesoft programmer? Yes Patient having difficulty with ADL???s? yes PT. IN W/C. FAMILY HELPS WITH ADL'S. Reconciled discharge medications with spouse. Discrepancies noted: NONE Concerns discussed: Symptoms HEADACHE, VOMITING FOR LAST 36 HRS. OFF & ON. NOW KEEPING WATER & VICODIN DOWN. Pain control: SEE ABOVE. Patient teaching: Coumadin/INR Reviewed hospital discharge instructions Reviewed when to call Careline and number to call: [phone] or Confirmed using teach back method that patient and/or caregiver can state their medications and doses to take, discharge instructions, appointments they have scheduled, who to call if their condition worsens. Follow up Plan: Appointments made by hospital staff: CLINIC: [facility] Special[facility]: Neurosurgery; [phone]; [address] [place] [address] DOCTORS NAME: Dr. Garry Baron WHEN TO [...] athologist Signature Protime 32.7 (H) 12.0 - [facility] 14.5 sec Coumadin Yes [facility] INR 3.0 [facility] Specimen Anatomical Collection Method Collection Time Receive d Time (Source) Location / / Volume Laterality 05/22/2010 12:05 05/22/2010 PM CDT 12:14 PM CDT Garry Baron MD LAB_1 Performing Organization Address City/State/ZIP Code Phon e Number [facility] [phone] [facility] [address] [place] [phone] (ABNORMAL) BASIC METABOLIC PANEL (05/22/2010 12:05 PM CDT) [facility] gist Method Time Signature BUN 25 [...] Garry Baron MD LAB_1 Performing Organization Address City/State/[facility] Phon e Number [facility] [phone] [facility] [address] [phone] documented in this encounter Visit Diagnoses Diagnosis 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, unspecified site DVT (deep venous thrombosis) ([facility]) Acute venous embolism and thrombosis of unspecified deep vessels of lower extremity documented in this encounter Care Teams Composite Technician Relationship Specialty Start Date End Date Unassigned, Provider PCP - General 11/28/01 05/21/[address] [place] [address] documented as of this encounter
--- OUTSIDE RECORDS SUMMARY | 2022-07-04 15:15 | XMS_ITS | Encounter Summary ---
:1945 Author Organization [facility] Address [address] [place] [address] Care Team Providers Name Role Phone Unavailable Primary Care Provider Unavailable Reason for Visit Reason Comments POST-OP,EXAM 05-09-10 baclofen pump revisi on Encounter Details Date Type Department Care Team Description 05/22/2010 Office Visit Specialty Center Garry Neff Epe ndymoma (Primary Dx); 401 [facility] X, Fever; [address] DVT (Deep Venous Thrombosis) [place] [address] [place], [place] [phone] (Wo rk) Social History Tobacco Use Types [...] up with Damián with Dr. Church at [phone]. You will be scheduled for a LP [...] refills. Please call the Neurosurgery/Spine Clinic at [phone] with any further questions or concerns. documented [...] to get this done over here, if [facility]. Then, should switch him to Lovenox [...] Dictated: 05/22/2010 17:58:32 Transcribed: 05/23/2010 13:03:57Job #: [id number] Doc #: [id number] cc: 1 Page 2 Patient Name: JIE CULLEN Visit Date: 05/22/2010 [facility]OS[facility]GERY [facility] [address] [address] Page 1 Patient: JIE CULLEN Location: [facility] HPN: [id number] Date of : 1945 Age: 65Y Visit [...] Garry Neff MD LAB_1 Performing Organization Address [facility]/ZIP [facility] Phon e Number [facility] [phone] [phone] (ABNORMAL) BASIC METABOLIC PANEL (05/22/2010 12:05 PM CDT) [facility] Affle Method Time Signature BUN 25 (H) 7 [...] Garry Neff MD LAB_1 Performing Organization Address [facility]/ZIP [facility] Phon e Number [facility] [phone] [address] (ABNORMAL) C-REACTIVE PROTEIN (05/22/2010 12:05 PM CDT) GIDEEN Method Time Signature C-Reactive 5.7 (H) 0.0 - 0.9 [facility] Protein mg/dl Comment: Note: results are expressed in mg/dL. Specimen Anatomical Collection Method Collection Time Receive d Time (Source) Location / / Volume Laterality 05/22/2010 12:05 05/22/2010 PM CDT 12:14 PM CDT Garry Neff MD LAB_1 Performing Organization Address City/[facility]/ZIP Code Phon e Number [facility] [phone] [facility] [address] [place] [phone] (ABNORMAL) ESR (05/22/2010 12:05 PM CDT) P athologist Signature ESR 87 (H) 0 - 15 [facility] mm/hr Specimen Anatomical Collection Method Collection Time Receive d Time (Source) Location / / Volume Laterality 05/22/2010 12:05 05/22/2010 PM CDT 12:14 PM CDT Garry Neff MD LAB_1 Performing Organization Address [facility] Phon e Number [facility] [phone] [facility] [address] [place] [phone] (ABNORMAL) HEMOGRAM/PLTS/DIFF (05/22/2010 12:05 PM CDT) [facility] gist Method Time Signature WBC 9.8 4.0 [...] 14 (L) 17 - 43 % [facility] Wilcox 6 4 - 12 % [facility] Eos 0 0 - 8 % [facility] Baso 0 0 - 1 % [facility] Neutrophil 7.8 (H) 1.8 - 7.7 [facility] Absolute k/ul Lymph Absolute 1.4 1.0 - 4.8 [facility] k/ul Wilcox Absolute 0.6 0.1 - 0.7 [facility] k/ul Eos Absolute 0.0 0.0 - 0.5 [facility] k/ul Baso Absolute 0.0 0.0 - 0.2 [facility] k/ul Specimen Anatomical Collection Method Collection Time Receive d Time (Source) Location / / Volume Laterality 05/22/2010 12:05 05/22/2010 PM CDT 12:14 PM CDT Garry Neff MD LAB_1 Performing Organization Address City/State/ZIP Code Phon e Number [facility] [phone] [phone] documented in this encounter Visit Diagnoses 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
--- OUTSIDE RECORDS SUMMARY | 2022-07-04 15:15 | XMS_ITS | Encounter Summary ---
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 He was admitted to [facility] on 04/29 for the fever. He [...] Hospital Course: Mr. Cullen was admitted to [facility] on 05/26/2010 following lumbar puncture. He was [...] mg intravenously daily for 10 days. Qty: 22852 mg Refills: 0 CONTINUE these medications which [...] Dr. Maurice Osuna RN Neurosurgery Nurse Clinician [phone] I, Geetha Osuna RN, am serving as [...] from the original note were not included. [address] [place] [address] Discharge Instructions for: Jie Cullen Thank you for choosing [facility] as your hospital. A copy of [...] additional information about your medications, visit this [facility] website, [email or web address]. Current Discharge Medication List START taking these medications enoxaparin (AKA LOVENOX) 10 MG/0.1ML injection Inject 100 mg subcutaneously every 12 hours. Qty: 10 mL Refills: 0 Last dose at 1130 on 06/01/2010 Take next dose tonight and then start every 12 hours on home schedule vancomycin (AKA VANCOCIN) 1000 MG injection Administer 2,500 mg intravenously daily for 10 days. Qty: 47322 mg Refills: 0 Last dose at 8 [...] care doctor. Additional Orders Clinic Referral CLINIC: [facility]: Neurosurgery; [phone]; [address] [place] [address] DOCTORS NAME: Dr. Maurice Baron WHEN TO BE SEEN: On (date) 06/19 at 2:00 REASON FOR APPOINTMENT: MDfollow up Discharge Instructions Monitor incision daily for signs of infection (redness, drainage, warmth). Call the Neurosurgery Clinic at [phone] with any incisional changes. Keep incision dry. Cover with Nexcare or Tegaderm for showers, for one week, and remove immediately after shower. Leave incision open to air. Call the doctor for these danger signs Any changes in your incision: redness, swelling, drainage, tenderness, or fever greater than 100.5. Any changes in sensation or decrease in strength to your extremeties. Neurosurgery clinic [phone]. ADMIT TO HOME CARE AGENCY NAME: [facility] [phone]. DATE OF FIRST VISIT: 1-2 days after [...] (Infusion clinic to draw) CLINIC REFERRAL CLINIC: [facility]; [facility] [phone] DOCTORS NAME: Dr. Arjun Mcmahan WHEN TO [...] shortness of breath Community [place] [address] For questions about your discharge instructions call the nursing unit : [facility] [place] [phone] Emergency & Urgently Needed Care: For emergencies call 911 and/or get medical help right away. If you are a [facility] member and have medical needs after clinic hours you may call the CareLineat [phone] or . All medical devices (telemetry/IV/etc) unless otherwise ordered, have been removed before discharge. Smoking and second-hand smoke exposure: Smoking damages blood vessels, reduces the oxygen in your blood and makes your heart beat too fast. If you smoke you should quit. Everyone should avoid second- hand smoke. If you would like further assistance after your discharge, please contact [phone] or visit www.[employer] can offer further [...] weight will also be followed by the Shotgun Shell Assembly Machine Operator when you go in for your [...] understand my discharge instructions: Jie Martinegfletcher (or Parts Processor) documented in this encounter Medications at Time of Discharge Medication Sig Dispensed Refills Start Date End Date vancomycin (AKA Administer 2,500 mg 09462 mg 0 06/01/2010 06/11/2010 VANCOCIN) 1000 MG [...] Hickey RN - 06/01/2010 1:37 PM CDT [facility] Discharge Note - Nursing Admission [...] removed and stored: Yes Report Completed by: Pirti Hickey RN --- End of Report --- Sangeeta Bocanegra OTR/L - 06/01/2010 1:02 PM CDT [facility] Occupational Therapy Progress Note This patient is scheduled to be seen by Occupational Therapy. VLADIMIR Oliveros (pager) OT Dept #: [phone] - OT Weekend Pager #: [phone] - [facility] [place] Main #: [phone] Tania Brantley - 06/01/2010 12:21 PM CDT [facility] Care Management Discharge Note Admission Date/Time: 05/26/2010 7:05 AM Attending MD: Maurice Baron Discharge Plan: Anticipated Discharge Date: 06/01/10 Anticipated Discharge Time: 13:00 Patient to be discharged: with [facility]. Patient to be accompanied by: spouse. Transportation arranged for discharge: has own wc here Pt has been cleared for dc today. Will need 10 days of IV Vanco. Infusions have been arranged through [address] in [place]. Have been in contact with Archana, mixing house operator who is aware pt discharging today and [...] for her to cosign and send to [facility]. Pt also open to HC for home [...] Ferreira in coumadin Clinic: Phone: and Fax: [facility]; ArchanaHowieJewelry Sales Coordinator: Phone: and Fax: [facility]: Phone: and Fax: Followup: as ordered on dc instructions. Discharge Disposition Code: 06: Discharged or transferred to home under care of organized home health service organization Report completed by Tania Brantley RN, Pager Number [phone] --- End of Report --- Tania Brantley - 06/01/2010 11:39 AM CDT [facility] DISCHARGE ORDERS Patient Name: Jie Cullen Date of : 1945 Allergies: Zaroxolyn and Oxycodone Immunizations: Most Recent Immunizations Administered Date(s) Administered ??? Flu Vac (3+ yrs) 10/06/2009 ??? H1n1 Miv Csl 3+ Yr (Injected) 12/06/2009 ??? Pneumococcal, PPSV23 10/06/2009 Current Attending Provider: Maurice Baron MD Discharge Procedure Orders Clinic Referral Order Comments: CLINIC: [facility]: Neurosurgery; [phone]; [address] [place] [address] DOCTORS NAME: Dr. Maurice Baron WHEN TO BE SEEN: On (date) 06/19 at 2:00 REASON FOR APPOINTMENT: MDfollow up Discharge Instructions Order Comments: Monitor incision daily for signs of infection (redness, drainage, warmth). Call the Neurosurgery Clinic at [phone] with any incisional changes. Keep incision dry. Cover with Nexcare or Tegaderm for showers, for one week, and remove immediately after shower. Leave incision open to air. Call the doctor for these danger signs Order Comments: Any changes in your incision: redness, swelling, drainage, tenderness, or fever greater than 100.5. Any changes in sensation or decrease in strength to your extremeties. Neurosurgery clinic [phone]. ADMIT TO HOME CARE Order Comments: AGENCY NAME: [facility] [phone]. DATE OF FIRST VISIT: 1-2 days after [...] to draw) CLINIC REFERRAL Order Comments: CLINIC: [facility]; [facility] [phone] DOCTORS NAME: Dr. Arjun Mcmahan WHEN TO [...] mg intravenously daily for 10 days. Qty: 49730 mg Refills: 0 CONTINUE these medications which [...] have been electronically signed. (In accordance with [place] Fed. Regulation Set, Fed A0232 - Types of Authentication) Discharging MD: Dr. Baron Today's Date: 06/01/10 --- End of Report --- Tania Brantley - 06/01/2010 11:33 AM CDT [facility] Transfer Orders to Home Health Care Patient Name: Jie Cullen Date of : 1945 Allergies: Zaroxolyn and Oxycodone Immunizations: Most Recent Immunizations Administered Date(s) Administered ??? Flu Vac (3+ yrs) 10/06/2009 ??? H1n1 Miv Csl 3+ Yr (Injected) 12/06/2009 ??? Pneumococcal, PPSV23 10/06/2009 Current Attending Provider: Maurice Baron MD Discharge Procedure Orders Clinic Referral Order Comments: CLINIC: [facility]: Neurosurgery; [phone]; [address] [place] [address] DOCTORS NAME: Dr. Maurice Baron WHEN TO BE SEEN: On (date) 06/19 at 2:00 REASON FOR APPOINTMENT: MDfollow up Discharge Instructions Order Comments: Monitor incision daily for signs of infection (redness, drainage, warmth). Call the Neurosurgery Clinic at [phone] with any incisional changes. Keep incision dry. Cover with Nexcare or Tegaderm for showers, for one week, and remove immediately after shower. Leave incision open to air. Call the doctor for these danger signs Order Comments: Any changes in your incision: redness, swelling, drainage, tenderness, or fever greater than 100.5. Any changes in sensation or decrease in strength to your extremeties. Neurosurgery clinic [phone]. ADMIT TO HOME CARE Order Comments: AGENCY NAME: [facility] [phone]. DATE OF FIRST VISIT: 1-2 days after discharge. ADDITIONAL NEEDS: Please evaluate and treat. LAB TESTS Order Comments: Lab Order: INR (to be drawn by infusion nurse at hospital) SCHEDULING INSTRUCTIONS (date/time): Saturday, June 02. Please fax or call results to coumadin nurse at Dr. cMmahan's clinic. LAB TESTS Order Comments: Lab Order: INR and Vanco level prior to vanco infusion SCHEDULING INSTRUCTIONS (date/time): Saturday, June 05 prior to vanco infusion. (Infusion clinic to draw) CLINIC REFERRAL Order Comments: CLINIC: [facility]; [facility] [phone] DOCTORS NAME: Dr. Arjun Mcmahan WHEN TO [...] mg intravenously daily for 10 days. Qty: 88635 mg Refills: 0 CONTINUE these medications which [...] have been electronically signed. (In accordance with [place] Fed. Regulation Set, Fed A0232 - Types of Authentication) Discharging MD: Dr. Baron Today's Date: 06/01/10 --- End of Report --- George Tang - 06/01/2010 10:43 AM CDT Infectious Disease Consult Service Plan for discharge: Patient to be discharged to: Home He will follow-up at the [facility] in [place] for intravenous infusion of vancomycin 2500 mg daily. Vancomycin stop date: 06/09/10 Patient does not need Infectious Diseases follow-up with us. Laboratory Monitoring: Vancomycin trough on SaturdayJune 05 Patient should follow-up with his primary prior to completing the vancomycin on 06/09/10 Patient's primary physician is Dr. Arjun Tang MD Geetha Osuna RN - 06/01/2010 7:49 AM CDT [facility] NeuroSurgery Progress Note 06/01/2010 Vitals [...] INR 3.0 05/22/10 12:05 PM ??? CSFRBC 34836 05/26/10 10:30 AM ??? CSFRBC 04584 05/26/10 10:30 AM ??? CSFWBC 318* 05/26/10 [...] am Geetha Osuna RN Neurosurgery Nurse Clinician [phone] I, Geetha Osuna RN, am serving as [...] Salinas RN - 05/31/2010 9:53 PM CDT [facility] Progress Note (Nursing) Identify/Problem(s): Post [...] Mckayla Hernandez - 05/31/2010 8:37 PM CDT [facility] Clinical Pharmacy Follow Up Kinetics Note Assessment: Jie Cullen, [id number], is a 65 yr year old male [...] any questions. Mckayla Hernandez, PharmD Pager Number [phone] --- End of Report --- Priti Hickey RN - 05/31/2010 8:07 PM CDT Problem: Falls Risk Goal: Moderate Risk (5-10): Fall Prevention I applied all active moderate risk falls prevention interventions. Priti Hickey RN - 05/31/2010 6:37 PM CDT [facility] Progress Note (Nursing) Identify/Problem(s): Comfort Mobility [...] Brantley Ruben - 05/31/2010 3:44 PM CDT [facility] Care Management Fundraising Director Follow Up Note Admission Date/Time: 05/26/2010 7:05 [...] so pt can receiveiv infusions at the [address] [place] Dr. Mcmahan starts clinic at 13:00 tomorrow. I will fax her the dc orders to for her signature and she will then fax to hospital. Roderick spoke with the Jewelry Sales Coordinator, Archana at [facility], ph: and fax: . She confirms [...] Follow Up: in am Report completed by aTnia Brantley RN, Pager Number [phone] --- End of Report --- Martha Thomas - 05/31/2010 3:26 PM CDT [facility] PM&R Progress Note () Date [...] South MD --- End of Report --- Chief Mechanical Engineer, Lucy Clemente - 05/31/2010 10:20 AM CDT [facility] NeuroSurgery Progress Note Pt doing [...] INR 3.0 05/22/10 12:05 PM ??? CSFRBC 61375 05/26/10 10:30 AM ??? CSFRBC 29772 05/26/10 10:30 AM ??? CSFWBC 318* 05/26/10 [...] Dwyer RN - 05/31/2010 3:08 AM CDT [facility] Progress Note (Nursing) Identify/Problem(s): Comfort/pain Desired [...] Salinas RN - 05/30/2010 10:18 PM CDT [facility] Progress Note (Nursing) Identify/Problem(s): Post [...] Huerta PharmD - 05/30/2010 3:54 PM CDT [facility] Clinical Pharmacy Initial Kinetics Note Assessment: Jie Cullen, [id number], is a 65 yr year old male started on vancomycin 2g iv q24h for SENIOR LICENSING MANAGER coverage s/p baclofen pump removal due to infection Data: Last Height: 5' 10 (177.8 cm) Last Wt - Scale: 215 lb (97.523 kg) [place] Body Weight: 73 kg Dosing Weight: 83 [...] to follow. Britni Huerta PharmD Pager Number: [phone] --- End of Report --- Tania Brantley - 05/30/2010 2:59 PM CDT [facility] Care Management Fundraising Director Initial Assessment Admission Date/Time: 05/26/2010 7:05 AM Attending MD: Maurice Baron Data Jie Cullen was referred to this Fundraising Director for discharge planning. Chart reviewed, discussed with interdisciplinary team, as well as with patient and family. 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 Insurance: Payor: MEDICARE PART B ONLY [id number] Plan: MEDICARE PART B ONLY Product Type: Medicare Current Living Situation: Patient lives with their spouse. Support System: family and friends Services Involved: Home PT through [facility] in [place]. Ph: and Fax: Additional Data: Pt's primary MD is Dr. Arjun Mcmahan at the [facility] Coordination of Care and Referrals: Provided patient/family [...] could go into the ER at the [address] iv infusions. I had spoken with mixing house operator in the ED at hospital who told [...] q12 hrs. Will need to see what [place] facility can provide for pt. Pt very [...] completed by Tania Brantley RN, Pager Number [phone] --- End of Report --- Martha Thomas - 05/30/2010 1:24 PM CDT [facility] PM&R Progress Note () Date of service: 05/30/2010 Diagnosis: Encounter Diagnoses Code Name Primary? 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 Martha South MD [phone] --- End of Report --- Chief Mechanical Engineer, Lucy Clemente - 05/30/2010 1:21 PM CDT [facility] NeuroSurgery Progress Note Pt is [...] INR 3.0 05/22/10 12:05 PM ??? CSFRBC 76620 05/26/10 10:30 AM ??? CSFRBC 85166 05/26/10 10:30 AM ??? CSFWBC 318* 05/26/10 [...] Archana Pace - 05/30/2010 12:28 PM CDT [facility] Laborer Salvage Department Progress Note Mortgage Loan Processor Notes: Initial assessment for spiritual and emotional [...] skills and resources. They are appreciative of cotton buyer and mortgage professional visits and prayers. I offered prayers for healing and strength. Plan: Laborer Salvage will continue following for ongoing spiritual and emotional support to pt/family. Report Completed by: Archana Pace, [facility] Staff Mortgage Loan Processor --- End of Report --- Malathi Domingo, RN - 05/30/2010 10:58 AM CDT [facility] Progress Note (Nursing) Identify/Problem(s): comfort [...] Long RN - 05/30/2010 3:45 AM CDT [facility] Progress Note (Nursing) Identify/Problem(s): Post [...] Salinas RN - 05/29/2010 9:48 PM CDT [facility] Progress Note (Nursing) Identify/Problem(s): Post [...] Cerda RN - 05/29/2010 6:58 PM CDT [facility] Progress Note (Nursing) Identify/Problem(s): Post op status Desired Outcome(s): Will be stable Evaluation: VSS, patient denies pain, patient tolerating clear liquid diet. Dressing to abdomen and back are dryand intact, green patent. at bedside, no other complaints at this time. Plan: Continue to monitor. Tania Cerda, RN --- End of Report --- Tania Brantley - 05/29/2010 2:26 PM CDT [facility] Fundraising Director Progress Note Pt has gone to OR. Briefly met with . Pt well known to me from previous admissions. Informed Lazara would attempt to meet with them tomorrow. She feels pt doing better and in pretty good sprits. Report completed by Tania Brantley RN, Pager Number [phone] --- End of Report --- Garth Rodriguez RN - 05/29/2010 11:40 AM CDT [facility] Nursing Pre-Op Note Admission Date/Time: 05/26/2010 7:05 AM Time of transport to the Operating Room: 1140 Transported by: Litter/cart Pre-Op checklist complete?: Yes Report Completed by: Romelia Rodriguez RN --- End of Report --- Lisy Durand RN - 05/29/2010 3:15 AM CDT [facility] Progress Note (Nursing) Identify/Problem(s): Comfort [...] Bardales RN - 05/28/2010 10:45 PM CDT [facility] Progress Note (Nursing) Identify/Problem(s): Comfort [...] Dietz RN - 05/28/2010 10:30 AM CDT [facility] Progress Note (Nursing) Identify/Problem(s): Comfort [...] mcg/mL. Dose following reprogrammin mcg/day simple continuous. [place] volume 35.7mL, Alarm date 07/09/2011. A/P: 65 [...] Contact Dr. Cristine Henson from PMR at [phone] if questions or if displaying symptoms of withdrawal (markedly increased muscle tone, itching, decrease in seizure threshold). 6. Recommend continuing home bowel program of enemeez every other day, next due 05/29, if able to schedule prior to surgery. Total time: 25. Counseling and Coordination time: 20. Mónica Saldana - 05/28/2010 6:28 AM CDT [facility] Progress Note (Nursing) Identify/Problem(s): Comfort [...] Bardales RN - 05/27/2010 8:57 PM CDT [facility] Progress Note (Nursing) Identify/Problem(s): Comfort Hgb [...] Cristine Henson - 05/27/2010 1:17 PM CDT [facility] PM&R Progress Note () Date [...] Simple continuous mode 2. Dose 127 mcg/day [place] volume: 35.8 mL Low reservoir alarm date: [...] Contact Dr. Cristine Henson from PMR at [phone] if questions or if displaying symptoms of withdrawal (markedly increased muscle tone, itching, decrease in seizure threshold). Total time: 25. Counseling and Coordination time: 20. Cristine Henson MD --- End of Report --- Ozzy Dietz RN - 05/27/2010 12:40 PM CDT [facility] Progress Note (Nursing) Identify/Problem(s): Comfort [...] Walters RN - 05/26/2010 10:57 PM CDT [facility] Progress Note (Nursing) Identify/Problem(s): comfort [...] Walters RN - 05/26/2010 6:39 PM CDT [facility]. MD Notified Note Name of [...] Roula Zuniga - 05/26/2010 2:30 PM CDT [facility] Clinical Pharmacy Medication Reconciliation Note Medication History: per [facility] Medications marked Taking as of 05/26/10 encounter (Hospital Encounter) with MAURICE BARON: acetaminophen (AKA TYLENOL) 325 MG tablet Take 1-2 Tabs by mouth every 4 hours as needed for Pain. atorvastatin (LIPITOR) 40 MG tablet Take 1 Tab by mouth daily. baclofen (AKA LIORESAL) 10 MG tablet Take 1 Tab by mouth. Wean schedule:Take 10mg three times a day for 6 doses, etxb61bs twice a day for 4 doses, lhwj57cj daily for 2 days, ttbx08jz twice daily NEEDED BACLOFEN IT 220 mcg [...] and medical condition. PHARMACIST NAME: Roula Garcia [facility] Phone/Pager #: [phone] --- End of Report --- documented in this encounter Procedure Notes Maurice Baron - 07/12/2010 10:00 AM CDT DATE OF SURGERY: 05/26/2010 SURGEON: Maurice Baron MD CITY ASSESSOR: None. ANESTHESIA: Local plus sedation. PREOPERATIVE DIAGNOSES: [...] 07/12/2010 10:00:55 Transcribed: 07/12/2010 22:40:18 Doc #: [id number] cc:Maurice Baron MD, Referring Provider 1 Page 1 Patient Name: JIE CULLEN INPATIENT OPERATIVE REPORT CONFIDENTIAL MEDICAL RECORD [address] [phone] Page 1 Patient: JIE CULLEN Location: [facility] [place] HPN: [id number] Admit Date: 05/26/2010 Date of : 1945 Discharge Date: 06/01/2010 Age: 65Y INPATIENT OPERATIVE REPORT Maurice Baron - 06/26/2010 5:19 PM CDT DATE OF SURGERY: 05/29/2010 STAFF SURGEON: Maurice Baron MD CITY ASSESSOR: Lucy Parker, [facility] PREOPERATIVE DIAGNOSES: 1. Status post excision of [...] woken up, extubated and taken stable to [facility]. Procedure well tolerated with no apparent complication s. Needle and sponge counts correct and verified at the end of the case. EBL was approximately 25 mLor less. Maurice Baron MD kda Dictated: 06/26/2010 17:19:06 Transcribed: 06/27/2010 08:10:23 Doc #: [id number] cc:Maurice Baron MD, Referring Provider 1 Page 1 Patient Name: JIE CULLEN INPATIENT OPERATIVE REPORT CONFIDENTIAL MEDICAL RECORD [address] [phone] Page 1 Patient: JIE CULLEN Location: [facility] [place] HPN: [id number] Admit Date: 05/26/2010 Date of : 1945 Discharge Date: 06/01/2010 Age: 65Y INPATIENT OPERATIVE REPORT Priti Agudelo RN - 05/31/2010 10:38 AM CDT [facility] PICC Line Insertion Procedure Note Singe Lumen PICC Site One Date of Service: 05/31/10 UNIVERSAL PROTOCOL: Procedure Location: S10 Condition: Elective Consent: Imformed Written Patient Identification: Verified Time Out: Performed Site Prep: Chloraprep Protective Barriers: Maximum Barriers Used including Handwashing, Sterile Gown, Gloves, Mask, Eye Protection & Cap PROCEDURE: Insert/Remove: Inserted Inserted By?: PICC Services Indication: Antibiotics Tile Layer Drainage: Power PICC Size (Barbadian): 5 Length (cm): 46 CM Lot #: [id number] Location: Right or Left: Right Site: Basilic Dressing: Tegaderm w/antimicrobial patch ULTRASOUND GUIDED ACCESS. Priti Agudelo RN, CRNI --- End of Report --- Lucy Parker - 05/29/2010 3:28 PM CDT [facility] Brief Operative Progress Note Surgery Date: 05/29/2010 Primary Surgeon: Surgeon(s): Maurice Baron Assistants: Lucy Parker PA-C Post-op Diagnosis: BACLOFEN PUMP INFECTION Procedure: REMOVAL OF BACLOFEN PUMP EBL: 10 mL Complications / Findings: None/ see dictated operative note Plan: Transfer back to [address] [place] [address] Resume pre operative orders IV valium prn [...] The procedure was medically necessary for an trading assistant because Dr. Baron needed the operative exposure and assistance that I provided. This allowed him to safely and efficiently operate. It was also important that I help ligate blood vessels to maintain hemostasis and reduce the bleeding risk. The assistance that I provided reduced operative time which meant less general anesthetic for the patient. Lucy Parkre PA-C --- End of Report --- [facility] ANESTHESIA, PROVIDER - 05/29/2010 12:00 AM CDT [facility] ANESTHESIA, PROVIDER - 05/29/2010 12:00 AM CDT [facility], PROVIDER - 05/29/2010 12:00 AM CDTAssociated Order(s): EKG IP; EKG IP [facility] ANESTHESIA, PROVIDER - 05/29/2010 12:00 AM CDT [facility] ANESTHESIA, PROVIDER - 05/29/2010 12:00 AM CDT [facility] ANESTHESIA, PROVIDER - 05/26/2010 12:00 AM CDT [facility] ANESTHESIA, PROVIDER - 05/26/2010 12:00 AM CDT [facility] ANESTHESIA, PROVIDER - 05/26/2010 12:00 AM CDT [facility] ANESTHESIA, PROVIDER - 05/26/2010 12:00 AM CDT documented in this encounter Consult Notes Stephan Anderson MD - 05/30/2010 11:24 AM CDTAssociated Order(s): INFECTIOUS DISEASE INPT CONSULT [facility] CENTER. Consultation Note () Date of [...] which went uneventfully. However was admitted to [facility] on 04/28 for spiking fever, chills. [...] with decreased appetite. He was admitted to [facility] on 05/26/2010nd had CSF drain that [...] 2000 S/p resection by Dr. Glasgow at [facility] in 05/2000. However resection was incomplete due [...] postop bleed cmpl ??? Total knee replacement (27582) right ??? Ivc filter placement 1999 Current [...] 1 at baseline. Lives with his in [place]. Review of Systems: A complete ROS was [...] CSF 05/26: protein 248, glucose 25, RBC 66928, nucleated cells 318 with 80%PMN. CSF 04/30 [...] spent in counseling and coordinating care. A pediatric speech language pathologist was not used during this exam. Report Completed by: Stephan ANDERSON MD, PGY-2, [phone] --- End of Report --- Relevant Reference [...] 2:12 PM CDTAssociated Order(s): PM&R INPT CONSULT [facility] PM&R Progress Note () Date [...] 2000 S/p resection by Dr. Glasgow at [facility] in 05/2000. However resection was incomplete due [...] UNITS ORDERED 2 - ??? UNIT NUMBER [id number] - ??? BLOOD COMPONENT TYPE THAWED PLASMA - ??? STATUS OF UNIT ISSUED - ??? TRANSFUSION STATUS OK TO TRANSFUSE - ??? UNIT NUMBER [id number] - ??? BLOOD COMPONENT TYPE THAWED PLASMA - ??? STATUS OF UNIT ISSUED - ??? TRANSFUSION STATUS OK TO TRANSFUSE - TYPE & CROSSMATCH (TRANSFUSE NOW) Component Value Range ??? ABO/RH(D) A NEGATIVE - ??? ANTIBODY SCREEN NEGATIVE - ??? CROSSMATCH EXPIRES 05/29/2010 - ??? UNIT NUMBER [id number] - ??? BLOOD COMPONENT TYPE LEUK RED VETERINARIAN POULTRY - ??? STATUS OF UNIT ISSUED - ??? TRANSFUSION STATUS OK TO TRANSFUSE - ??? CROSSMATCH RESULT COMPATIBLE - ??? UNIT NUMBER [id number] - ??? BLOOD COMPONENT TYPE LE[place] RED VETERINARIAN POULTRY - ??? STATUS OF UNIT ISSUED - [...] ??? XANTHOCHROMIA Present - ??? RBC, CSF 06370 - (/ul) ??? NUCLEATED CELLS, CSF 318 (*) 0-5 (/ul) ??? PMN'S 80 - (%) ??? LYMPHOCYTES 9 - (%) ??? MONOCYTE/MACROPHAGE 11 - (%) FIRST CSF CELL COUNT & DIFF Component Value Range ??? SOURCE Cerebrospinal Fluid - ??? DESCRIPTION, CSF - Value: Bloody Slight ??? TUBE # 1 - ??? XANTHOCHROMIA Present - ??? RBC, CSF 52200 - (/ul) ??? NUCLEATED CELLS, CSF 352 (*) 0-5 (/ul) ??? LYMPHOCYTES - (%) SPINAL FLUID CULTURE & SMEAR Component Value Range ??? SPECIMEN DESCRIPTION Cerebrospinal Fluid - ??? SPECIAL REQUESTS Unspecified - ??? GRAM SMEAR No Organisms Seen - ??? GRAM SMEAR - Value: Critical value results given to and read back by Mendoza [id number] at 11:58 ??? GRAM SMEAR 05/26 to NT - ??? CULTURE - ??? REPORT STATUS - AEROBIC CULTURE Component Value Range ??? SPECIMEN DESCRIPTION Fluid BACLOFEN PUMP - ??? SPECIAL REQUESTS Unspecified - ??? GRAM SMEAR No PMN'S Seen - ??? GRAM SMEAR No Organisms Seen - ??? GRAM SMEAR - Value: Results Called to Mendoza [id number] at 11:59 on 05/26 by NT ??? CULTURE - ??? REPORT STATUS - PROCEDURE NOTE: 05/26/2010 Current settings: Baclofen Concentration 1,000mcg/ml on simple continuous mode Dose: last dose on 05/22 was 213 Mcg/day. Baclofen dose was decreased by 20% and new pump settings are: 1. Simple continuous mode 2. Dose 170.2 mcg/day [place] vol: 35.9 mL Low reservoir 12/14/2010 Assessment/Plan: [...] Maurice Baron MD LAB_1 Performing Organization Address [facility] Phon e Number [address] [address] [place], [place] [phone] XR PORTABLE CHEST 1 VIEW to verify [...] Lucy Colmenares PA-C LAB_1 Performing Organization Address [facility] Phon e Number [address] [address] [place], [place] [phone] (ABNORMAL) HEMOGRAM/PLTS (05/30/2010 12:28 PM CDT) athologist [facility] WBC 7.0 4.0 - 11.0 [facility] k/ul [...] Organization Address City/State/ZIP Code Phon e Number [facility] [address] [place] [address] [place], [place] [phone] (ABNORMAL) BASIC METABOLIC PANEL (05/30/2010 12:28 PM CDT) athologist [facility] BUN 19 7 - 20 [facility] mg/dl [...] Maurice Baron MD LAB_1 Performing Organization Address [facility]/ZIP [facility] Phon e Number [address] [address] [place], [place] [phone] EKG IP (05/29/2010 12:00 AM CDT) Specimen (Source) Anatomical Location Collection Method / Collectio n Time Received Time / Laterality Volume 05/29/2010 Narrative This result has an attachment that is no t available. Transcriptions [facility], PROVIDER - 05/29/2010 12:00 AM CDT Provider [facility] EKG LIGHT GREEN HOLD TUBE (05/28/2010 6:44 AM CDT) [facility] Method Time Signature Light Green Held in [facility] Hold Tub Chemistry sample rack for 7 days Specimen Anatomical Collection Method Collection Time Receive d Time (Source) Location / / Volume Laterality 05/28/2010 6:44 AM 0 7:01 CDT AM CDT Maurice Baron MD LAB_1 Performing Organization Address [facility] Phon e Number [address] [address] [place], [place] [phone] (ABNORMAL) HEMOGRAM/PLTS (05/28/2010 6:43 AM CDT) P [...] Yomi Miller MD LAB_1 Performing Organization Address [facility]/ZIP [facility] Phon e Number [address] [address] [place], [place] [phone] (ABNORMAL) Hemogram with Platelets (05/27/2010 6:52 AM [...] Maurice Baron MD LAB_1 Performing Organization Address [facility] Phon e Number [address] [address] [place], [place] [phone] MR THORACIC SPINE WITH/WITHOUT CONTRAST (05/26/2010 4:52 PM CDT) Anatomical Region Laterality Modality Spine, T-Spine, L-Spine, C-Spine, Skeletal Magnetic Resonance Specimen (Source) Anatomical Collection Method Collection Time Re ceived Time Location / / Volume Laterality 05/26/2010 4:52 PM CDT Narrative 05/26/2010 5:18 PM CDT [facility] [employer] THORACIC SPINE MRI ? 05/26/2010 INDICATION: Evaluate [...] Note Julien Anna - 05/27/2010 [facility] THORACIC SPINE MRI 05/26/2010 INDICATION: Evaluate [...] Organization Address City/State/ZIP Code Phon e Number [address] [address] [place], [place] [phone] XR C-ARM 30-59 MIN (05/26/2010 10:35 AM [...] PUMP Special Unspecified [facility] Requests Aerobic Cult [id number] [facility] Number Culture No Anaerobes [facility] Isolated Report Status Final [facility] 06/02/2010 Specimen Anatomical Collection Method Collection Time Receive d Time (Source) Location / / Volume Laterality 05/26/2010 10:30 05/26/2010 AM CDT 11:23 AM CDT Noble Singh MD LAB_1 Performing Organization Address City/[facility]/ZIP Code Phon e Number [address] [address] [place], [place] [phone] AEROBIC CULTURE (05/26/2010 10:30 AM CDT) [employer] Method Time Signature Specimen Fluid BACLOFEN [facility] Description PUMP Special Unspecified [facility] Requests Gram Smear No PMN'S Seen [facility] Gram Smear No Organisms [facility] Seen Gram Smear Results Called REG[facility] to Mendoza [id number] at 11:59 on 05/26 by NT Culture No Growth After [facility] 3 Days Report Status Final [facility] 05/29/2010 Specimen Anatomical Collection Method Collection Time Receive d Time (Source) Location / / Volume Laterality 05/26/2010 10:30 05/26/2010 AM CDT 11:23 AM CDT Noble Singh MD LAB_1 Performing Organization Address City/[facility]/ZIP [facility] Phon e Number [address] [address] [place], [place] [phone] ANAEROBIC CULTURE (05/26/2010 10:30 AM CDT) Component Value Ref Test Analysis Performed At [employer] Range Method Time Signature Specimen Cerebrospinal [facility] Description Fluid Special Unspecified [facility] Requests Aerobic Cult [id number] [facility] Number Culture No Anaerobes [facility] Isolated Report Status Final 06/02/2010 [facility] Specimen Anatomical Collection Method Collection Time Receive d Time (Source) Location / / Volume Laterality 05/26/2010 10:30 05/26/2010 AM CDT 11:18 AM CDT Noble Singh MD LAB_1 Performing Organization Address City/[facility]/ZIP Code Phon e Number [address] [address] [place], [place] [phone] SPINAL FLUID CULTURE & SMEAR (05/26/2010 10:30 AM CDT) Component Value Ref Test Analysis Performed At [facility] Method Time Signature Specimen Cerebrospinal REGIONS [...] Noble Singh MD LAB_1 Performing Organization Address [facility] Phon e Number [address] [address] [place], [place] [phone] (ABNORMAL) FIRST CSF CELL COUNT & DIFF (05/26/2010 10:30 AM CDT) Component Value Ref Test Analysis Performed At [facility] Method Time Signature Source Cerebrospinal [facility] Fluid Description, CSF Bloody [facility] Slight Tube # 1 [facility] Xanthochromia Present REGIONS RBC, CSF 38537 /ul [facility] Nucleated Cells, 352 (H) 0 - 5 [facility] CSF /ul PMN's 65 % [facility] Lymphocytes 15 % [facility] Monocyte/Macroph 20 % [facility] age Specimen Anatomical Collection Method Collection Time Receive d Time (Source) Location / / Volume Laterality 05/26/2010 10:30 05/26/2010 AM CDT 11:11 AM CDT Noble Singh MD LAB_1 Performing Organization Address [facility] Phon e Number [address] [address] [place], [place] [phone] (ABNORMAL) SECOND CSF CELL COUNT & DIFF (05/26/2010 10:30 AM CDT) Component Value Ref Test Analysis Performed At [facility] Method Time Signature Source Cerebrospinal [facility] Fluid Description, CSF Bloody [facility] Slight Tube # 4 [facility] Xanthochromia Present REGIONS RBC, CSF 53543 /ul [facility] Nucleated Cells, 318 (H) 0 - 5 [facility] CSF /ul PMN's 80 % [facility] Lymphocytes 9 % [facility] Monocyte/Macroph 11 % [facility] age Specimen Anatomical Collection Method Collection Time Receive d Time (Source) Location / / Volume Laterality 05/26/2010 10:30 05/26/2010 AM CDT 11:03 AM CDT Noble Singh MD LAB_1 Performing Organization Address [facility] Phon e Number [address] [address] [place], [place] [phone] (ABNORMAL) CSF TOTAL PROTEIN (05/26/2010 10:30 AM CDT) [facility] [employer] Method Time Signature Source Cerebrospinal [facility] Fluid Total 248 (H) 12 - 60 [facility] Protein, CSF mg/dl Comment: The use if this assay to monitor or diag nose patients has not been approved for this specimen type by the FDA or consumer marketing analyst of this assay. Specimen Anatomical Collection Method Collection Time Receive d Time (Source) Location / / Volume Laterality 05/26/2010 10:30 05/26/2010 AM CDT 10:51 AM CDT Noble Singh MD LAB_1 Performing Organization Address [facility] Phon e Number [address] [address] [place], [place] [phone] (ABNORMAL) CSF, GLUCOSE (05/26/2010 10:30 AM CDT) [facility] [employer] Method Time Signature Source Cerebrospinal [facility] Fluid Glucose, CSF 25 (L) 40 - 70 [facility] mg/dl Specimen Anatomical Collection Method Collection Time Receive d Time (Source) Location / / Volume Laterality 05/26/2010 10:30 05/26/2010 AM CDT 10:51 AM CDT Noble Singh MD LAB_1 Performing Organization Address [facility] Phon e Number [address] [address] [place], [place] [phone] TYPE & CROSSMATCH (TRANSFUSE NOW) (05/26/2010 9:30 AM CDT) [facility] [employer] Method Time Signature ABO/RH(D) A NEGATIVE [facility] Antibody Screen NEGATIVE [facility] Crossmatch 05/29/2010 [facility] Expires Unit Number [id number] [facility] Blood Component LEUK RED VETERINARIAN POULTRY REGIONS Type Status of Unit Issued, final REGIONS Transfusion OK TO REGIONS Status TRANSFUSE Crossmatch COMPATIBLE [facility] Result Unit Number [id number] [facility] Blood Component LEUK RED VETERINARIAN POULTRY [facility] Type Status of Unit Issued, final REGIONS Transfusion OK TO REGIONS Status TRANSFUSE Crossmatch COMPATIBLE [facility] Result Unit Number [id number] [facility] Blood Component LEUK RED VETERINARIAN POULTRY [facility] Type Status of Unit Issued, final REGIONS Transfusion OK TO REGIONS Status TRANSFUSE Crossmatch COMPATIBLE [facility] Result Unit Number [id number] [facility] Blood Component LEUK RED VETERINARIAN POULTRY REG[facility] Type Status of Unit Issued, final REGIONS Transfusion OK TO REGIONS Status TRANSFUSE Crossmatch COMPATIBLE [facility] Result Specimen Anatomical Collection Method Collection Time Receive d Time (Source) Location / / Volume Laterality 05/26/2010 9:30 AM 0 9:34 CDT AM CDT Maurice Baron MD LAB_1 Performing Organization Address [facility] Phon e Number [address] [address] [place], [place] [phone] LAB TO PREPARE THAWED PLASMA (05/26/2010 9:29 AM CDT) [facility] gist Method Time Signature Units Ordered 2 REG[facility] Unit Number [id number] [facility] Blood Component THAWED PLASMA [facility]IONS Type Status of Unit Issued, final [facility] Transfusion OK TO REGIONS Status TRANSFUSE Unit Number [id number] [facility] Blood Component THAWED PLASMA [facility] Type Status of Unit Issued, final [facility] Transfusion OK TO REGIONS Status TRANSFUSE Specimen Anatomical Collection Method Collection Time Receive d Time (Source) Location / / Volume Laterality 05/26/2010 9:29 AM 0 9:41 CDT AM CDT Maurice Baron MD LAB_1 Performing Organization Address [facility] Phon e Number [address] [address] [place], [place] [phone] (ABNORMAL) aPTT (Activated Partial Thromboplastin Time) (05/26/2010 8:12 AM CDT) P athologist Signature PTT 42.4 (H) 24.0 - 37.0 [facility] sec Specimen Anatomical Collection Method Collection Time Receive d Time (Source) Location / / Volume Laterality 05/26/2010 8:12 AM 0 8:32 CDT AM CDT Maurice Baron MD LAB_1 Performing Organization Address City/[facility] Phon e Number [address] [address] [place], [place] [phone] (ABNORMAL) INR/Protime (PT/INR) (05/26/2010 8:12 AM CDT) P athologist Signature Protime 20.1 (H) 12.0 - 14.5 [facility] sec INR 1.7 [facility] Specimen Anatomical Collection Method Collection Time Receive d Time (Source) Location / / Volume Laterality 05/26/2010 8:12 AM 0 8:32 CDT AM CDT Maurice Baron MD LAB_1 Performing Organization Address City/State/ZIP Code Phon e Number [address] [address] [place], [place] [phone] documented in this encounter Visit Diagnoses Diagnosis 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 Current Intake/Digestive Problems: no problems noted Dietary Intake Since Admission: consuming 75-100% of documented meals. Food and Nutrition-Related History: Diet History: Regular diet Intake/Digestive Problems MICROCHIP SPECIALIST: no problems noted Pertinent Biochemical Data, Medical [...] Buckner, PT - 05/31/2010 12:07 PM CDT [facility] Physical Therapy Evaluation Patient Seen: bedside Diagnosis: Encounter Diagnoses Code Name Primary? 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 05697 CAREPLAN: BACLOFEN ??? 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 Corrie Buckner PT Phone number is [phone] Pager: Pager number is: [phone] --- End of Report --- Initial Assessments - Cheli Ruiz RN - 05/26/2010 1:50 PM CDT [facility] Med-Surg / ICU / Rehab [...] Assist: (not recorded) Functional Screening: (not recorded) PSYCHOSOCIAL/SPIRITUAL/ADVENTISM/CULTURAL/ABUSE/CHEMICAL Suicide Health Inventory Do you currently have [...] issues for which support from the hospital cotton buyer might be helpful to patient and/or family? [...] mg (CANCELED) 0800 (Gi lore - Provider: aMlathi Domingo RN)1400 (Given - Provider: Malathi Domingo [...]
--- OUTSIDE RECORDS SUMMARY | 2022-07-04 15:15 | XMS_ITS | Encounter Summary ---
:1945 Author Organization [facility] Address [address] [place] [address] Care Team Providers Name Role Phone Unassigned, Provider Primary Care Provider Unavailable Encounter Details Date Type Department Care Team Description 05/17/2010 Orders Only External to Unknown, [facility] [address] [place], [place] [phone] (Wo rk) Social History Tobacco Use Types Packs/Day Years Used Date Smoking Tobacco: Never Alcohol Use Standard Drinks/Week Comments No 0 (1 standard drink = 0.6 oz pure alcoho l) Sex Assigned at Date Recorded Male 08/06/2021 5:59 PM CDT documented as of this encounter Procedure Notes [facility], Provider - 05/17/2010 12:00 AM CDTAssociated Order(s): [...] available. Ordered by an unspecified provider. Transcriptions [facility], Provider - 05/17 12:00 AM CDT Physician Unknown LAB_1 documented in this encounter Visit Diagnoses Not on filedocumented in this encounter Care Teams Locum Tenens Relationship Specialty Start Date End Date Unassigned, Provider PCP - General 11/28/01 05/21/10 [address] [place] [address] documented as of this encounter
--- OUTSIDE RECORDS SUMMARY | 2022-07-04 15:15 | XMS_ITS | Encounter Summary ---
:1945 Author Organization [employer] Address [address], [place] [address] Care Team Providers Name Role Phone Unassigned, Provider Primary Care Provider Unavailable Reason for Visit Reason Onset Date Comments QUESTIONS, GENERAL 05/16/2010 post-op, DOS 05/09/10 Encounter Details Date Type Department Care Team Description 05/16/2010 Telephone Specialty Center Garry Neff, QUESTIONS, GENERAL 401 NeuroSurgery MD (post-op, DOS 05/09/10) [address] [place] [address] [place] [address] [phone] (Wo rk) Social History Tobacco Use Types [...] had an emesis since earlier. Again this health underwriter explained that we will give him [...] - 05/16/2010 3:34 PM CDT Shirin in [place] told patient to call Dr. Neff if vomiting continues to look for Intercranial pressure. Patient's Heather (cell [phone]) is requesting a call regarding this today as she wants more info and is concerned about this. Shirin Patino - 05/16/2010 3:[address] Moura ordered to start oral Doxycycline 100mg bid X 30 days. Phoned client. Spoke with his .She would like the Rx sent to [facility] in [place]. . Heather also stated that client continues [...] by Dr. Llamas while in patient at [facility] on 04/30/10. He wasalso seen by Dr. Moura in patient on 05/09/10. Dr. Moura in clinic today. [facility] ordered to stop [...] emesis and his has no headache. This health underwriter explained that we would need to reviewthese concerns with ID to see what antibiotic can be substituted for the Bactrim. This health underwriter called and left a message with [...] bacterium documented in this encounter Care Teams Stone Cutter Relationship Specialty Start Date End Date Unassigned, Provider PCP - General 11/28/01 05/21/[address] [place] [address] documented as of this encounter
--- OUTSIDE RECORDS SUMMARY | 2022-07-04 15:15 | XMS_ITS | Encounter Summary ---
:1945 Author Organization [facility] Address [address], [place] [address] Care Team Providers Name Role Phone Unavailable Primary Care Provider Unavailable Reason for Visit Reason Onset Date Comments Follow-up, NOS 05/22/2010 Encounter Details Date Type Department Care Team Description 05/22/2010 Telephone Specialty Center [address] Selene Johnson, RN Follow-up, NOS NeuroSurgery [address] [place] [address] [place] [address] [phone] Social History Tobacco Use Types Packs/Day Years [...] at 9:00 am he should arrive at [facility] at 7:00 am. At that time they [...] will fax the results to Jennifer at [phone]. Per the general surgery physician assistant patient will be admitted through surgery center [...] and a LP to r/o menegitis. This documentation writer talked with and explained the plan of [...]
--- OUTSIDE RECORDS SUMMARY | 2022-07-04 15:15 | XMS_ITS | Encounter Summary ---
:1945 Author Organization [facility] Address [address], [place] [address] Care Team Providers Name Role Phone Unavailable Primary Care Provider Unavailable Encounter Details Date Type Department Care Team Description 05/26/2010 Correspondence [facility] Radiology, MRI SAFETY SHEET [address] [facility] Provider [place] [address] Social History Tobacco Use Types Packs/Day Years [...]
--- OUTSIDE RECORDS SUMMARY | 2022-07-04 15:15 | XMS_ITS | Encounter Summary ---
:1945 Author Organization Counts include 234 beds at the [facility] Address [address] [place] [address] Care Team Providers Name Role Phone Unavailable Primary Care Provider Unavailable Encounter Details Date Type Department Care Team Description 05/25/2010 Orders Only External to Unknown, [facility] [address] [place] [address] (Wo rk) Social History Tobacco Use Types [...]
--- OUTSIDE RECORDS SUMMARY | 2022-07-04 15:15 | XMS_ITS | Encounter Summary ---
:1945 Author Organization [employer] Address [address] [place] [address] Care Team Providers Name Role Phone Unavailable Primary Care Provider Unavailable Encounter Details Date Type Department Care Team Description 05/26/2010 Imaging [facility] [address] [place] [address] Social History Tobacco Use Types Packs/Day Years [...] PM CDT Narrative 05/26/2010 5:18 PM CDT [facility] [place] THORACIC SPINE MRI ? 05/26/2010 INDICATION: Evaluate [...] nal. Procedure Note Julien Anna - 05/27/2010 [facility] THORACIC SPINE MRI 05/26/2010 INDICATION: [...]
--- OUTSIDE RECORDS SUMMARY | 2022-07-04 15:15 | XMS_ITS | Encounter Summary ---
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 [facility] Hospital Course: Mr. Cullen was admitted to [facility] on 05/26/2010 following lumbar puncture. [...] mg intravenously daily for 10 days. Qty: 02771 mg Refills: 0 CONTINUE these medications which [...] Dr. Maurice Osuna RN Neurosurgery Nurse Clinician [phone] I, Geetha Osuna RN, am serving as [...] from the original note were not included. [address] [place] [address] Discharge Instructions for: Jie Cullen Thank you [...] additional information about your medications, visit this [employer] website, [email or web address]?FILTER=[email or web address]. Current Discharge Medication List START taking these medications enoxaparin (AKA LOVENOX) 10 MG/0.1ML injection Inject 100 mg subcutaneously every 12 hours. Qty: 10 mL Refills: 0 Last dose at 1130 on 06/01/2010 Take next dose tonight and then start every 12 hours on home schedule vancomycin (AKA VANCOCIN) 1000 MG injection Administer 2,500 mg intravenously daily for 10 days. Qty: 11936 mg Refills: 0 Last dose at 8 [...] Additional Orders Clinic Referral CLINIC: [facility]: Neurosurgery; [phone]; [address] [place] [address] DOCTORS NAME: Dr. Maurice Baron WHEN TO BE SEEN: On (date) 06/19 at 2:00 REASON FOR APPOINTMENT: MDfollow up Discharge Instructions Monitor incision daily for signs of infection (redness, drainage, warmth). Call the Neurosurgery Clinic at [phone] with any incisional changes. Keep incision dry. Cover with Nexcare or Tegaderm for showers, for one week, and remove immediately after shower. Leave incision open to air. Call the doctor for these danger signs Any changes in your incision: redness, swelling, drainage, tenderness, or fever greater than 100.5. Any changes in sensation or decrease in strength to your extremeties. Neurosurgery clinic [phone]. ADMIT TO HOME CARE AGENCY NAME: [facility] [phone]. DATE OF FIRST VISIT: 1-2 days after [...] (Infusion clinic to draw) CLINIC REFERRAL CLINIC: [facility]; [facility] [phone] DOCTORS NAME: Dr. Arjun Mcmahan WHEN TO [...] shortness of breath Community [place] [address] For questions about your discharge instructions call the nursing unit : [facility] [phone] Emergency & Urgently Needed Care: For emergencies call 911 and/or get medical help right away. If you are a [facility] member and have medical needs after clinic hours you may call the CareLineat [phone] or . All medical devices (telemetry/IV/etc) unless otherwise ordered, have been removed before discharge. Smoking and second-hand smoke exposure: Smoking damages blood vessels, reduces the oxygen in your blood and makes your heart beat too fast. If you smoke you should quit. Everyone should avoid second- hand smoke. If you would like further assistance after your discharge, please contact [phone] or visit www.[employer] can offer further [...] weight will also be followed by the Hostel Parent when you go in for your treatment. [...] understand my discharge instructions: Jie Martinegele (or Furnace Mechanic) documented in this encounter Medications at Time of Discharge Medication Sig Dispensed Refills Start Date End Date vancomycin (AKA Administer 2,500 mg 51832 mg 0 06/01/2010 06/11/2010 VANCOCIN) 1000 MG [...] Hickey RN - 06/01/2010 1:[address] [facility] Discharge Note - Nursing Admission Date/Time: [...] Bocanegra OTR/L - 06/01/2010 1:02 PM CDT [facility] Occupational Therapy Progress Note This patient is scheduled to be seen by Occupational Therapy. VLADIMIR Oliveros (pager) OT Dept #: [phone] - OT Weekend Pager #: [phone] - [facility] Main #: [phone] Tnaia Brantley - 06/01/2010 12:21 PM CDT [facility] Care Management Discharge Note Admission Date/Time: [...] IV Vanco. Infusions have been arranged through [address] in [place]. Have been in contact with Archana, household appliance repairer who is aware pt discharging today and [...] for her to cosign and send to [facility]. Pt also open to HC for home [...] Ferreira in coumadin Clinic: Phone: and Fax: [facility]; ArchanaHowieFamily Independence Case Manager: Phone: and Fax: [facility]: Phone: and Fax: Followup: as ordered on dc instructions. Discharge Disposition Code: 06: Discharged or transferred to home under care of organized home health service organization Report completed by Tania Brantley RN, Pager Number [phone] --- End of Report --- Tania Brantley - 06/01/2010 11:39 AM CDT [facility] DISCHARGE ORDERS Patient Name: Jie Cullen Date of : 1945 Allergies: Zaroxolyn and Oxycodone Immunizations: Most Recent Immunizations Administered Date(s) Administered ??? Flu Vac (3+ yrs) 10/06/2009 ??? H1n1 Miv Csl 3+ Yr (Injected) 12/06/2009 ??? Pneumococcal, PPSV23 10/06/2009 Current Attending Provider: Maurice Baron MD Discharge Procedure Orders Clinic Referral Order Comments: CLINIC: [facility]: Neurosurgery; [phone]; [address] [place] [address] DOCTORS NAME: Dr. Maurice Baron WHEN TO BE SEEN: On (date) 06/19 at 2:00 REASON FOR APPOINTMENT: MDfollow up Discharge Instructions Order Comments: Monitor incision daily for signs of infection (redness, drainage, warmth). Call the Neurosurgery Clinic at [phone] with any incisional changes. Keep incision dry. Cover with Nexcare or Tegaderm for showers, for one week, and remove immediately after shower. Leave incision open to air. Call the doctor for these danger signs Order Comments: Any changes in your incision: redness, swelling, drainage, tenderness, or fever greater than 100.5. Any changes in sensation or decrease in strength to your extremeties. Neurosurgery clinic [phone]. ADMIT TO HOME CARE Order Comments: AGENCY NAME: [facility] [phone]. DATE OF FIRST VISIT: 1-2 days after [...] to draw) CLINIC REFERRAL Order Comments: CLINIC: [facility]; [facility] [phone] DOCTORS NAME: Dr. Arjun Mcmahan WHEN TO [...] mg intravenously daily for 10 days. Qty: 71997 mg Refills: 0 CONTINUE these medications which [...] have been electronically signed. (In accordance with [place] Fed. Regulation Set, Fed A0232 - Types of Authentication) Discharging MD: Dr. Baron Today's Date: 06/01/10 --- End of Report --- Tania Brantley - 06/01/2010 11:33 AM CDT [facility] Transfer Orders to Home Health Care Patient Name: Jie Cullen Date of : 1945 Allergies: Zaroxolyn and Oxycodone Immunizations: Most Recent Immunizations Administered Date(s) Administered ??? Flu Vac (3+ yrs) 10/06/2009 ??? H1n1 Miv Csl 3+ Yr (Injected) 12/06/2009 ??? Pneumococcal, PPSV23 10/06/2009 Current Attending Provider: Maurice Baron MD Discharge Procedure Orders Clinic Referral Order Comments: CLINIC: [facility]: Neurosurgery; [phone]; [address] [place] [address] DOCTORS NAME: Dr. Maurice Baron WHEN TO BE SEEN: On (date) 06/19 at 2:00 REASON FOR APPOINTMENT: MDfollow up Discharge Instructions Order Comments: Monitor incision daily for signs of infection (redness, drainage, warmth). Call the Neurosurgery Clinic at [phone] with any incisional changes. Keep incision dry. Cover with Nexcare or Tegaderm for showers, for one week, and remove immediately after shower. Leave incision open to air. Call the doctor for these danger signs Order Comments: Any changes in your incision: redness, swelling, drainage, tenderness, or fever greater than 100.5. Any changes in sensation or decrease in strength to your extremeties. Neurosurgery clinic [phone]. ADMIT TO HOME CARE Order Comments: AGENCY NAME: [facility] [phone]. DATE OF FIRST VISIT: 1-2 days after [...] to draw) CLINIC REFERRAL Order Comments: CLINIC: [facility]; [facility] [phone] DOCTORS NAME: Dr. Arjun Mcmahan WHEN TO [...] mg intravenously daily for 10 days. Qty: 42527 mg Refills: 0 CONTINUE these medications which [...] have been electronically signed. (In accordance with [place] Fed. Regulation Set, Fed A0232 - Types of Authentication) Discharging MD: Dr. Baron Today's Date: 06/01/10 --- End of Report --- George Tang - 06/01/2010 10:43 AM CDT Infectious Disease Consult Service Plan for discharge: Patient to be discharged to: Home He will follow-up at the [facility] in [place] for intravenous infusion of vancomycin 2500 mg daily. Vancomycin stop date: 06/09/10 Patient does not need Infectious Diseases follow-up with us. Laboratory Monitoring: Vancomycin trough on SaturdayJune 05 Patient should follow-up with his primary prior to completing the vancomycin on 06/09/10 Patient's primary physician is Dr. Arjun Tang MD Geetha Osuna RN - 06/01/2010 7:[address] [facility] NeuroSurgery Progress Note 06/01/2010 Vitals Temp [...] INR 3.0 05/22/10 12:05 PM ??? CSFRBC 51547 05/26/10 10:30 AM ??? CSFRBC 68540 05/26/10 10:30 AM ??? CSFWBC 318* 05/26/10 [...] am Geetha Osuna RN Neurosurgery Nurse Clinician [phone] I, Geetha Osuna RN, am serving as [...] Salinas RN - 05/31/2010 9:[address] [facility] Progress Note (Nursing) Identify/Problem(s): Post Op [...] Mckayla Hernandez - 05/31/2010 8:[address] [facility] Clinical Pharmacy Follow Up Kinetics Note Assessment: Jie Cullen, [id number], is a 65 yr year old male [...] any questions. Mckayla Hernandez, PharmD Pager Number [phone] --- End of Report --- Priti Hickey RN - 05/31/2010 8:07 PM CDT Problem: Falls Risk Goal: Moderate Risk (5-10): Fall Prevention I applied all active moderate risk falls prevention interventions. Priti Hickey RN - 05/31/2010 6:37 PM CDT [facility] Progress Note (Nursing) Identify/Problem(s): Comfort Mobility [...] Brantley Ruben - 05/31/2010 3:44 PM CDT [facility] Care Management Child Caregiver Follow Up Note Admission Date/Time: 05/26/2010 7:05 [...] so pt can receiveiv infusions at the [address] [place] Mcmahan starts clinic at 13:00 tomorrow. I will fax her the dc orders to for her signature and she will then fax to hospital. Roderick spoke with the Family Independence Case Manager, Archana at [facility], ph: and fax: . She confirms [...] completed by Tania Brantley RN, Pager Number [phone] --- End of Report --- Martha Thomas - 05/31/2010 3:[address] [facility] PM&R Progress Note () Date of [...] South MD --- End of Report --- Firearms Expert, Lucy Clemente - 05/31/2010 10:[address] [facility] NeuroSurgery Progress Note Pt doing well [...] INR 3.0 05/22/10 12:05 PM ??? CSFRBC 60408 05/26/10 10:30 AM ??? CSFRBC 78588 05/26/10 10:30 AM ??? CSFWBC 318* 05/26/10 [...] Dwyer RN - 05/31/2010 3:08 AM CDT [facility] Progress Note (Nursing) Identify/Problem(s): Comfort/pain Desired [...] Salinas RN - 05/30/2010 10:[address] [facility] Progress Note (Nursing) Identify/Problem(s): Post Op [...] Huerta PharmD - 05/30/2010 3:[address] [facility] Clinical Pharmacy Initial Kinetics Note Assessment: Jie Cullen, [id number], is a 65 yr year old male started on vancomycin 2g iv q24h for METROLOGIST coverage s/p baclofen pump removal due to infection Data: Last Height: 5' 10 (177.8 cm) Last Wt - Scale: 215 lb (97.523 kg) [place] Body Weight: 73 kg Dosing Weight: 83 [...] to follow. Britni Huerta PharmD Pager Number: [phone] --- End of Report --- Tania Brantley - 05/30/2010 2:[address] [facility] Care Management Child Caregiver Initial Assessment Admission Date/Time: 05/26/2010 7:05 AM Attending MD: Maurice Baron Data Jie Cullen was referred to this Child Caregiver for discharge planning. Chart reviewed, discussed with interdisciplinary team, as well as with patient and family. 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 Insurance: Payor: MEDICARE PART B ONLY [id number] Plan: MEDICARE PART B ONLY Product Type: Medicare Current Living Situation: Patient lives with their spouse. Support System: family and friends Services Involved: Home PT through [facility] in [place]. Ph: and Fax: Additional Data: Pt's primary MD is Dr. Arjun Mcmahan at the [facility] Coordination of Care and Referrals: Provided patient/family [...] could go into the ER at the [address] for iv infusions. I had spoken with household appliance repairer in the ED at hospital who told [...] q12 hrs. Will need to see what [place] facility can provide for pt. Pt very [...] completed by Tania Brantley RN, Pager Number [phone] --- End of Report --- Martha Thomas - 05/30/2010 1:[address] [facility] PM&R Progress Note () Date of service: 05/30/2010 Diagnosis: Encounter Diagnoses Code Name Primary? 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 Martha South MD [phone] --- End of Report --- Firearms Expert, Lucy Clemente - 05/30/2010 1:[address] [facility] NeuroSurgery Progress Note Pt is doing [...] INR 3.0 05/22/10 12:05 PM ??? CSFRBC 78478 05/26/10 10:30 AM ??? CSFRBC 01570 05/26/10 10:30 AM ??? CSFWBC 318* 05/26/10 [...] Archana Pace - 05/30/2010 12:[address] [facility] Bad Credit Collector Department Progress Note Silk Soaker Notes: Initial assessment for spiritual and emotional [...] skills and resources. They are appreciative of sheetmetal patternmaker and equipment services associate visits and prayers. I offered prayers for healing and strength. Plan: Bad Credit Collector will continue following for ongoing spiritual and emotional support to pt/family. Report Completed by: Archana Pace, [facility] Staff Silk Soaker --- End of Report --- Malathi Domingo, RN - 05/30/2010 10:[address] [facility] Progress Note (Nursing) Identify/Problem(s): comfort Desired [...] Long RN - 05/30/2010 3:[address] [facility] Progress Note (Nursing) Identify/Problem(s): Post op, [...] Salinas RN - 05/29/2010 9:[address] [facility] Progress Note (Nursing) Identify/Problem(s): Post OP [...] Cerda RN - 05/29/2010 6:[address] [facility] Progress Note (Nursing) Identify/Problem(s): Post op status Desired Outcome(s): Will be stable Evaluation: VSS, patient denies pain, patient tolerating clear liquid diet. Dressing to abdomen and back are dryand intact, green patent. at bedside, no other complaints at this time. Plan: Continue to monitor. Tania Cerda, VALERIE --- End of Report --- Tania Brantley - 05/29/2010 2:[address] [facility] Child Caregiver Progress Note Pt has gone to OR. Briefly met with . Pt well known to me from previous admissions. Informed Lazara would attempt to meet with them tomorrow. She feels pt doing better and in pretty good sprits. Report completed by Tania Brantley RN, Pager Number [phone] --- End of Report --- Garth Rodriguez RN - 05/29/2010 11:[address] [facility] Nursing Pre-Op Note Admission Date/Time: 05/26/2010 7:05 AM Time of transport to the Operating Room: 1140 Transported by: Litter/cart Pre-Op checklist complete?: Yes Report Completed by: Romelia Rodriguez RN --- End of Report --- Lisy Durand RN - 05/29/2010 3:[address] [facility] Progress Note (Nursing) Identify/Problem(s): Comfort Desired [...] Bardales RN - 05/28/2010 10:45 PM CDT [facility] Progress Note (Nursing) Identify/Problem(s): Comfort Desired [...] Dietz RN - 05/28/2010 10:30 AM CDT [facility] Progress Note (Nursing) Identify/Problem(s): Comfort Desired [...] mcg/mL. Dose following reprogrammin mcg/day simple continuous. Purple Sage volume 35.7mL, Alarm date 07/09/2011. A/P: 65 [...] Contact Dr. Cristine Henson from PMR at [phone] if questions or if displaying symptoms of withdrawal (markedly increased muscle tone, itching, decrease in seizure threshold). 6. Recommend continuing home bowel program of enemeez every other day, next due 05/29, if able to schedule prior to surgery. Total time: 25. Counseling and Coordination time: 20. Mónica Saldana - 05/28/2010 6:28 AM CDT [facility] Progress Note (Nursing) Identify/Problem(s): Comfort Desired [...] Bardales RN - 05/27/2010 8:[address] [facility] Progress Note (Nursing) Identify/Problem(s): Comfort Hgb [...] Cristine Henson - 05/27/2010 1:[address] [facility] PM&R Progress Note () Date of [...] Simple continuous mode 2. Dose 127 mcg/day Purple Sage volume: 35.8 mL Low reservoir alarm date: [...] Contact Dr. Cristine Henson from PMR at [phone] if questions or if displaying symptoms of withdrawal (markedly increased muscle tone, itching, decrease in seizure threshold). Total time: 25. Counseling and Coordination time: 20. Cristine Henson MD --- End of Report --- Ozzy Dietz RN - 05/27/2010 12:40 PM CDT [facility] Progress Note (Nursing) Identify/Problem(s): Comfort Desired [...] Walters RN - 05/26/2010 10:[address] [facility] Progress Note (Nursing) Identify/Problem(s): comfort Desired [...] Walters RN - 05/26/2010 6:[address] [facility]. MD Notified Note Name of MD [...] Roula Zuniga - 05/26/2010 2:[address] [facility] Clinical Pharmacy Medication Reconciliation Note Medication History: per [facility] Medications marked Taking as of 05/26/10 encounter (Hospital Encounter) with MAURICE BARON: acetaminophen (AKA TYLENOL) 325 MG tablet Take 1-2 Tabs by mouth every 4 hours as needed for Pain. atorvastatin (LIPITOR) 40 MG tablet Take 1 Tab by mouth daily. baclofen (AKA LIORESAL) 10 MG tablet Take 1 Tab by mouth. Wean schedule:Take 10mg three times a day for 6 doses, [id number] twice a day for 4 doses, daeu50ez daily for 2 days, uiiq54cs twice daily NEEDED BACLOFEN IT 220 mcg [...] and medical condition. PHARMACIST NAME: Roula Garcia [facility] Phone/Pager #: [phone] --- End of Report --- documented in this encounter Procedure Notes Maurice Baron - 07/12/2010 10:00 AM CDT DATE OF SURGERY: 05/26/2010 SURGEON: Maurice Baron MD EXPORT COORDINATOR: None. ANESTHESIA: Local plus sedation. PREOPERATIVE DIAGNOSES: [...] 07/12/2010 10:00:55 Transcribed: 07/12/2010 22:40:18 Doc #: [id number] cc:Maurice Baron MD, Referring Provider 1 Page 1 Patient Name: JIE CULLEN INPATIENT OPERATIVE REPORT CONFIDENTIAL MEDICAL RECORD [address] [phone] Page 1 Patient: JIE CULLEN Location: [facility] HPN: [id number] Admit Date: 05/26/2010 Date of : 1945 Discharge Date: 06/01/2010 Age: 65Y INPATIENT OPERATIVE REPORT Maurice Baron - 06/26/2010 5:19 PM CDT DATE OF SURGERY: 05/29/2010 STAFF SURGEON: Maurice Baron MD EXPORT COORDINATOR: Lucy Parker, [facility] PREOPERATIVE DIAGNOSES: 1. Status post excision of [...] 06/26/2010 17:19:06 Transcribed: 06/27/2010 08:10:23 Doc #: [id number] cc:Maurice Baron MD, Referring Provider 1 Page 1 Patient Name: JIE CULLEN INPATIENT OPERATIVE REPORT CONFIDENTIAL MEDICAL RECORD [address] [phone] Page 1 Patient: JIE CULLEN Location: [facility] HPN: [id number] Admit Date: 05/26/2010 Date of : 1945 Discharge Date: 06/01/2010 Age: 65Y INPATIENT OPERATIVE REPORT Priti Agudelo RN - 05/31/2010 10:38 AM CDT [facility] PICC Line Insertion Procedure Note Singe Lumen PICC Site One Date of Service: 05/31/10 UNIVERSAL PROTOCOL: Procedure Location: S10 Condition: Elective Consent: Imformed Written Patient Identification: Verified Time Out: Performed Site Prep: Chloraprep Protective Barriers: Maximum Barriers Used including Handwashing, Sterile Gown, Gloves, Mask, Eye Protection & Cap PROCEDURE: Insert/Remove: Inserted Inserted By?: PICC Services Indication: Antibiotics Industrial Psychology Teacher: Power PICC Size (Ukrainian): 5 Length (cm): 46 CM Lot #: [id number] Location: Right or Left: Right Site: Basilic Dressing: Tegaderm w/antimicrobial patch ULTRASOUND GUIDED ACCESS. Priti Agudelo RN, CRNI --- End of Report --- Lucy Parker - 05/29/2010 3:[address] 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 Baron needed the operative exposure and assistance that I provided. This allowed him to safely and efficiently operate. It was also important that I help ligate blood vessels to maintain hemostasis and reduce the bleeding risk. The assistance that I provided reduced operative time which meant less general anesthetic for the patient. Lucy Pakrer PA-C --- End of Report --- [facility] ANESTHESIA, PROVIDER - 05/29/2010 12:00 AM CDT [facility] ANESTHESIA, PROVIDER - 05/29/2010 12:00 AM CDT [facility], PROVIDER - 05/29/2010 12:00 AM CDTAssociated Order(s): EKG IP; EKG IP [facility] ANESTHESIA, PROVIDER - 05/29/2010 12:00 AM CDT [facility] ANESTHESIA, PROVIDER - 05/29/2010 12:00 AM CDT [facility] ANESTHESIA, PROVIDER - 05/26/2010 12:00 AM CDT [facility] ANESTHESIA, PROVIDER - 05/26/2010 12:00 AM CDT [facility] ANESTHESIA, PROVIDER - 05/26/2010 12:00 AM CDT [facility] ANESTHESIA, PROVIDER - 05/26/2010 12:00 AM CDT documented in this encounter Consult Notes Stephan Anderson MD - 05/30/2010 11:24 AM CDTAssociated Order(s): INFECTIOUS DISEASE INPT CONSULT [facility]. Consultation Note () Date of service: [...] which went uneventfully. However was admitted to [facility] on 04/28 for spiking fever, chills. He [...] with decreased appetite. He was admitted to [facility] on 05/26/2010nd had CSF drain that day. [...] 2000 S/p resection by Dr. Glasgow at [place] in 05/2000. However resection was incomplete due [...] postop bleed cmpl ??? 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 Ivc filter placement 1999 Current [...] 1 at baseline. Lives with his in [place]. Review of Systems: A complete ROS was [...] CSF 05/26: protein 248, glucose 25, RBC 40800, nucleated cells 318 with 80%PMN. CSF 04/30 [...] spent in counseling and coordinating care. A language instructor was not used during this exam. Report Completed by: Stephan ANDERSON MD, PGY-2, [phone] --- End of Report --- Relevant Reference [...] 2:12 PM CDTAssociated Order(s): PM&R INPT CONSULT [facility] PM&R Progress Note () Date of [...] 2000 S/p resection by Dr. Glasgow at [place] in 05/2000. However resection was incomplete due [...] UNITS ORDERED 2 - ??? UNIT NUMBER [id number] - ??? BLOOD COMPONENT TYPE THAWED PLASMA - ??? STATUS OF UNIT ISSUED - ??? TRANSFUSION STATUS OK TO TRANSFUSE - ??? UNIT NUMBER [id number] - ??? BLOOD COMPONENT TYPE THAWED PLASMA - ??? STATUS OF UNIT ISSUED - ??? TRANSFUSION STATUS OK TO TRANSFUSE - TYPE & CROSSMATCH (TRANSFUSE NOW) Component Value Range ??? ABO/RH(D) A NEGATIVE - ??? ANTIBODY SCREEN NEGATIVE - ??? CROSSMATCH EXPIRES 05/29/2010 - ??? UNIT NUMBER [id number] - ??? BLOOD COMPONENT TYPE LEUK RED AZURE ARCHITECT - ??? STATUS OF UNIT ISSUED - ??? TRANSFUSION STATUS OK TO TRANSFUSE - ??? CROSSMATCH RESULT COMPATIBLE - ??? UNIT NUMBER [id number] - ??? BLOOD COMPONENT TYPE LEUK RED AZURE ARCHITECT - ??? STATUS OF UNIT ISSUED - [...] ??? XANTHOCHROMIA Present - ??? RBC, CSF 73281 - (/ul) ??? NUCLEATED CELLS, CSF 318 (*) 0-5 (/ul) ??? PMN'S 80 - (%) ??? LYMPHOCYTES 9 - (%) ??? MONOCYTE/MACROPHAGE 11 - (%) FIRST CSF CELL COUNT & DIFF Component Value Range ??? SOURCE Cerebrospinal Fluid - ??? DESCRIPTION, CSF - Value: Bloody Slight ??? TUBE # 1 - ??? XANTHOCHROMIA Present - ??? RBC, CSF 70548 - (/ul) ??? NUCLEATED CELLS, CSF 352 (*) 0-5 (/ul) ??? LYMPHOCYTES - (%) SPINAL FLUID CULTURE & SMEAR Component Value Range ??? SPECIMEN DESCRIPTION Cerebrospinal Fluid - ??? SPECIAL REQUESTS Unspecified - ??? GRAM SMEAR No Organisms Seen - ??? GRAM SMEAR - Value: Critical value results given to and read back by Mendoza [id number] at 11:58 ??? GRAM SMEAR 05/26 to NT - ??? CULTURE - ??? REPORT STATUS - AEROBIC CULTURE Component Value Range ??? SPECIMEN DESCRIPTION Fluid BACLOFEN PUMP - ??? SPECIAL REQUESTS Unspecified - ??? GRAM SMEAR No PMN'S Seen - ??? GRAM SMEAR No Organisms Seen - ??? GRAM SMEAR - Value: Results Called to Mendoza [id number] at 11:59 on 05/26 by NT ??? CULTURE - ??? REPORT STATUS - PROCEDURE NOTE: 05/26/2010 Current settings: Baclofen Concentration 1,000mcg/ml on simple continuous mode Dose: last dose on 05/22 was 213 Mcg/day. Baclofen dose was decreased by 20% and new pump settings are: 1. Simple continuous mode 2. Dose 170.2 mcg/day Purple Sage vol: 35.9 mL Low reservoir 12/14/2010 Assessment/Plan: [...] MD LAB_1 Performing Organization Address [facility] [address]/[facility] Phon e Number [address] [address] [place], [place] [phone] XR PORTABLE CHEST 1 VIEW to verify [...] PA-C LAB_1 Performing Organization Address [facility] [address]/[facility] Phon e Number [address] [address] [place], [place] [phone] (ABNORMAL) HEMOGRAM/PLTS (05/30/2010 12:28 PM CDT) athologist [...] Organization Address City/State/ZIP Code Phon e Number [address] [address] [place], [place] [phone] (ABNORMAL) BASIC METABOLIC PANEL (05/30/2010 12:28 PM [...] Maurice Baron MD LAB_1 Performing Organization Address City/[facility] [address]/ZIP [facility] Phon e Number [address] [address] [place], [place] [phone] EKG IP (05/29/2010 12:00 AM CDT) Specimen (Source) Anatomical Location Collection Method / Collectio n Time Received Time / Laterality Volume 05/29/2010 Narrative This result has an attachment that is no t available. Transcriptions [facility], PROVIDER - 05/29/2010 12:00 AM CDT Provider [facility] EKG LIGHT GREEN HOLD TUBE (05/28/2010 6:44 AM CDT) [facility] Method Time Signature Light Green Held in [facility] Hold Tub Chemistry sample rack for 7 days Specimen Anatomical Collection Method Collection Time Receive d Time (Source) Location / / Volume Laterality 05/28/2010 6:44 AM 0 7:01 CDT AM CDT Maurice Baron MD LAB_1 Performing Organization Address [facility] [address]/ZIP Code Phon e Number [address] [address] [place], [place] [phone] (ABNORMAL) HEMOGRAM/PLTS (05/28/2010 6:43 AM CDT) P [...] MD LAB_1 Performing Organization Address [facility] [address]/ZIP [facility] Phon e Number [address] [address] [place], [place] [phone] (ABNORMAL) Hemogram with Platelets (05/27/2010 6:52 AM [...] MD LAB_1 Performing Organization Address [facility] [address]/[facility] Phon e Number [address] [address] [place], [place] [phone] MR THORACIC SPINE WITH/WITHOUT CONTRAST (05/26/2010 4:52 PM CDT) Anatomical Region Laterality Modality Spine, T-Spine, L-Spine, C-Spine, Skeletal Magnetic Resonance Specimen (Source) Anatomical Collection Method Collection Time Re ceived Time Location / / Volume Laterality 05/26/2010 4:52 PM CDT Narrative 05/26/2010 5:18 PM CDT [facility] [place] THORACIC SPINE MRI ? 05/26/2010 INDICATION: Evaluate [...] nal. Procedure Note Julien Anna - 05/27/2010 [facility] THORACIC SPINE MRI 05/26/2010 INDICATION: Evaluate [...] Organization Address City/State/ZIP Code Phon e Number [address] [address] [place], [place] [phone] XR C-ARM 30-59 MIN (05/26/2010 10:35 AM [...] PUMP Special Unspecified [facility] Requests Aerobic Cult [id number] [facility] Number Culture No Anaerobes [facility] Isolated Report Status Final [facility] 06/02/2010 Specimen Anatomical Collection Method Collection Time Receive d Time (Source) Location / / Volume Laterality 05/26/2010 10:30 05/26/2010 AM CDT 11:23 AM CDT Noble Singh MD LAB_1 Performing Organization Address [facility] [address]/ZIP [facility] Phon e Number [address] [address] [place], [place] [phone] AEROBIC CULTURE (05/26/2010 10:30 AM CDT) [facility] Method Time Signature Specimen Fluid BACLOFEN [facility] Description PUMP Special Unspecified [facility] Requests Gram Smear No PMN'S Seen [facility] Gram Smear No Organisms [facility] Seen Gram Smear Results Called [facility] to Mendoza [id number] at 11:59 on 05/26 by NT Culture No Growth After [facility] 3 Days Report Status Final [facility] 05/29/2010 Specimen Anatomical Collection Method Collection Time Receive d Time (Source) Location / / Volume Laterality 05/26/2010 10:30 05/26/2010 AM CDT 11:23 AM CDT Noble Singh MD LAB_1 Performing Organization Address City/[facility] [address]/[facility] Phon e Number [address] [address] [place], [place] [phone] ANAEROBIC CULTURE (05/26/2010 10:30 AM CDT) Component Value Ref Test Analysis Performed At [facility] Range Method Time Signature Specimen Cerebrospinal [facility] Description Fluid Special Unspecified [facility] Requests Aerobic Cult [id number] [facility] Number Culture No Anaerobes [facility] Isolated Report Status Final 06/02/2010 [facility] Specimen Anatomical Collection Method Collection Time Receive d Time (Source) Location / / Volume Laterality 05/26/2010 10:30 05/26/2010 AM CDT 11:18 AM CDT Noble Singh MD LAB_1 Performing Organization Address City/[facility] [address]/ZIP [facility] Phon e Number [address] [address] [place], [place] [phone] SPINAL FLUID CULTURE & SMEAR (05/26/2010 10:30 AM CDT) Component Value Ref Test Analysis Performed At [facility] Range Method Time Signature Specimen Cerebrospinal [facility] [...] 05/26/2010 AM CDT 11:18 AM CDT Noble Sinhg MD LAB_1 Performing Organization Address [facility] [address]/[facility] Phon e Number [address] [address] [place], [place] [phone] (ABNORMAL) FIRST CSF CELL COUNT & DIFF (05/26/2010 10:30 AM CDT) Component Value Ref Test Analysis Performed At [facility] [employer] Method Time Signature Source Cerebrospinal [facility] Fluid Description, CSF Bloody [facility] Slight Tube # 1 [facility] Xanthochromia Present [facility] RBC, CSF 36124 /ul [facility] Nucleated Cells, 352 (H) 0 - 5 [facility] CSF /ul PMN's 65 % [facility] Lymphocytes 15 % [facility] Monocyte/Macroph 20 % [facility] age Specimen Anatomical Collection Method Collection Time Receive d Time (Source) Location / / Volume Laterality 05/26/2010 10:30 05/26/2010 AM CDT 11:11 AM CDT Noble Singh MD LAB_1 Performing Organization Address [facility] [address]/[facility] Phon e Number [address] [address] [place], [place] [phone] (ABNORMAL) SECOND CSF CELL COUNT & DIFF (05/26/2010 10:30 AM CDT) Component Value Ref Test Analysis Performed At [facility] [employer] Range Method Time Signature Source Cerebrospinal [facility] Fluid Description, CSF Bloody [facility] Slight Tube # 4 [facility] Xanthochromia Present [facility] RBC, CSF 03176 /ul [facility] Nucleated Cells, 318 (H) 0 - 5 [facility] CSF /ul PMN's 80 % [facility] Lymphocytes 9 % [facility] Monocyte/Macroph 11 % [facility] age Specimen Anatomical Collection Method Collection Time Receive d Time (Source) Location / / Volume Laterality 05/26/2010 10:30 05/26/2010 AM CDT 11:03 AM CDT Noble Singh MD LAB_1 Performing Organization Address City/[facility] [address]/[facility] Phon e Number [address] [address] [place], [place] [phone] (ABNORMAL) CSF TOTAL PROTEIN (05/26/2010 10:30 AM CDT) [facility] Method Time Signature Source Cerebrospinal [facility] Fluid Total 248 (H) 12 - 60 [facility] Protein, CSF mg/dl Comment: The use if this assay to monitor or diag nose patients has not been approved for this specimen type by the FDA or meat puller of this assay. Specimen Anatomical Collection Method Collection Time Receive d Time (Source) Location / / Volume Laterality 05/26/2010 10:30 05/26/2010 AM CDT 10:51 AM CDT Noble Singh MD LAB_1 Performing Organization Address City/[facility] [address]/[facility] Phon e Number [address] [address] [place], [place] [phone] (ABNORMAL) CSF, GLUCOSE (05/26/2010 10:30 AM CDT) [facility] Method Time Signature Source Cerebrospinal [facility] Fluid Glucose, CSF 25 (L) 40 - 70 [facility] mg/dl Specimen Anatomical Collection Method Collection Time Receive d Time (Source) Location / / Volume Laterality 05/26/2010 10:30 05/26/2010 AM CDT 10:51 AM CDT Noble Singh MD LAB_1 Performing Organization Address City/[facility] [address]/[facility] Phon e Number [address] [address] [place], [place] [phone] TYPE & CROSSMATCH (TRANSFUSE NOW) (05/26/2010 9:30 AM CDT) [facility] Method Time Signature ABO/RH(D) A NEGATIVE [facility] Antibody Screen NEGATIVE [facility] Crossmatch 05/29/2010 [facility] Expires Unit Number [id number] [facility] Blood Component LEUK RED AZURE ARCHITECT [facility] Type Status of Unit Issued, final [facility] Transfusion OK TO [facility] Status TRANSFUSE Crossmatch COMPATIBLE [facility] Result Unit Number [id number] [facility] Blood Component LEUK RED AZURE ARCHITECT [facility] Type Status of Unit Issued, final [facility] Transfusion OK TO [facility] Status TRANSFUSE Crossmatch COMPATIBLE [facility] Result Unit Number [id number] [facility] Blood Component LEUK RED AZURE ARCHITECT [facility] Type Status of Unit Issued, final [facility] Transfusion OK TO [facility] Status TRANSFUSE Crossmatch COMPATIBLE [facility] Result Unit Number [id number] [facility] Blood Component LEUK RED AZURE ARCHITECT [facility] Type Status of Unit Issued, final [facility] Transfusion OK TO [facility] Status TRANSFUSE Crossmatch COMPATIBLE [facility] Result Specimen Anatomical Collection Method Collection Time Receive d Time (Source) Location / / Volume Laterality 05/26/2010 9:30 AM 0 9:34 CDT AM CDT Maurice Baron MD LAB_1 Performing Organization Address City/[facility] [address]/[facility] Phon e Number [address] [address] [place], [place] [phone] LAB TO PREPARE THAWED PLASMA (05/26/2010 9:29 AM CDT) [facility] gist Method Time Signature Units Ordered 2 [facility] Unit Number [id number] [facility] Blood Component THAWED PLASMA [facility] Type Status of Unit Issued, final [facility] Transfusion OK TO [facility] Status TRANSFUSE Unit Number [id number] [facility] Blood Component THAWED PLASMA [facility] Type Status of Unit Issued, final [facility] Transfusion OK TO [facility] Status TRANSFUSE Specimen Anatomical Collection Method Collection Time Receive d Time (Source) Location / / Volume Laterality 05/26/2010 9:29 AM 0 9:41 CDT AM CDT Maurice Baron MD LAB_1 Performing Organization Address [facility] [address]/[facility] Phon e Number [address] [address] [place], [place] [phone] (ABNORMAL) aPTT (Activated Partial Thromboplastin Time) (05/26/2010 8:12 AM CDT) P athologist Signature PTT 42.4 (H) 24.0 - 37.0 [facility] sec Specimen Anatomical Collection Method Collection Time Receive d Time (Source) Location / / Volume Laterality 05/26/2010 8:12 AM 0 8:32 CDT AM CDT Maurice Baron MD LAB_1 Performing Organization Address City/[facility] [address]/ZIP [facility] Phon e Number [address] [address] [place], [place] [phone] (ABNORMAL) INR/Protime (PT/INR) (05/26/2010 8:12 AM CDT) P athologist Signature Protime 20.1 (H) 12.0 - 14.5 [facility] sec INR 1.7 [facility] Specimen Anatomical Collection Method Collection Time Receive d Time (Source) Location / / Volume Laterality 05/26/2010 8:12 AM 0 8:32 CDT AM CDT Maurice Baron MD LAB_1 Performing Organization Address City/State/ZIP Code Phon e Number 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 Nutrition Initial Limited Assessment and Care Plan Reason for Assessing Patient: LOS Assessment: Patient was well nourished [employer] and is now meeting estimated needs by [...] LD, CSSD If you have questions, page [phone] Weekend pager: [phone] Nutrition Assessment Data Current Nutrition/Diet Order: Diet: Regular diet. Current Intake/Digestive Problems: no problems noted Dietary Intake Since Admission: consuming 75-100% of documented meals. Food and Nutrition-Related History: Diet History: Regular diet Intake/Digestive Problems [employer]: no problems noted Pertinent Biochemical Data, Medical [...] Buckner, PT - 05/31/2010 12:07 PM CDT [facility] Physical Therapy Evaluation Patient Seen: bedside Diagnosis: Encounter Diagnoses Code Name Primary? 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 Corrie Buckner, PT Phone number is [phone] Pager: Pager number is: [phone] --- End of Report --- Initial Assessments - Cheli Ruiz RN - 05/26/2010 1:[address] [facility] Med-Surg / ICU / Rehab / [...] Assist: (not recorded) Functional Screening: (not recorded) PSYCHOSOCIAL/SPIRITUAL/RASTAFARIAN/CULTURAL/ABUSE/CHEMICAL Suicide Health Inventory Do you currently [...] issues for which support from the hospital sheetmetal patternmaker might be helpful to patient and/or family? [...]
--- OUTSIDE RECORDS SUMMARY | 2022-07-04 15:15 | XMS_ITS | Encounter Summary ---
:1945 Author Organization [facility] Address [address] [place] [address] Care Team Providers Name Role Phone Unassigned, Provider Primary Care Provider Unavailable Reason for Visit Reason Onset Date Comments [facility]AC[facility] 05/21/2010 Encounter Details Date Type Department Care Team Description 05/21/2010 Telephone Careline Unknown, Physician HEADACHE [address] [place], [place] [address] [place], [place] [address] (Wo rk) Social History Tobacco Use Types [...] ALLERGIES: No HOME TREATMENT: Not discussed PLAN: [facility] verbalized understanding and is comfortable with this plan. Kristen Arroyo RN Mily Rojo - 05/21/2010 8:08 PM CDT Does the patient currently have insurance?No Which care system is the patient affiliated with?[facility] Situation: Pt has meningitis. Pt has a headache, dry heaves. A nurse will call you back within the next hour. If you have not heard from a nurse, please feel free to call us back at [phone] and state that you are waiting for a callback. documented in this encounter Plan of Treatment Not on filedocumented as of this encounter Visit Diagnoses Not on filedocumented in this encounter Care Teams Marble Mechanic Helper Relationship Specialty Start Date End Date Unassigned, Provider PCP - General 11/28/01 05/21/[address] [place] [id number] documented as of this encounter
--- OUTSIDE RECORDS SUMMARY | 2022-07-04 15:15 | XMS_ITS | Encounter Summary ---
:1945 Author [facility] Address [address] [place] [address] Care Team Providers Name Role Phone Unavailable Primary Care Provider Unavailable Encounter Details Date Type Department Care Team Description 05/26/2010 Imaging [facility] [address] [place] [phone] Social History Tobacco Use Types Packs/Day Years [...]
--- OUTSIDE RECORDS SUMMARY | 2022-07-04 15:16 | XMS_ITS | Encounter Summary ---
:1945 Author Organization [employer] Address [address] [place] [address] Care Team Providers Name Role Phone Unassigned, Provider Primary Care Provider Unavailable Reason for Visit Reason Comments HEADACHE--ED recent back surgery Encounter Details Date Type Department Care Team Description 04/30/2010 - [place] [address] Zelalem Dick MD [address] [place] [address] Pseudomeningocele (Primary Dx); 05/13/[address] [place] [address] Unassigned, Provider [address] [place] [address] Headache; [place], [place] Trevin Salgado MD [address] [place] [address] Fever; [address] Maurice Baron MD [address] [place] [address] Muscle Spasticity; [phone] Meningitis; Ependymoma; Other Symptoms Referable to Back; [...] Osuna Bryn - 05/13/2010 4:08 PM CDT [facility] Discharge Summary Report (MD) Admit Date/Time: 04/30/2010 1:25 AM Discharge Date: 05/13/10 Service: Neurosurgery Staff MD: Dr. Maurice Baron Admitting Diagnosis: Encounter Diagnoses Code Name Primary? 453.40U DVT (Deep Venous Thrombosis) Yes ??? 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 784.0 Headache ??? 780.60BQ Fever ??? 728.85T Muscle Spasticity ??? 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 88776 CAREPLAN: BACLOFEN ??? 564.81 Neurogenic Bowel ??? [...] 04/24/2010 he was seen at ER in [place] & was treated with IM ceftriaxone & azithromycin for possible pneumonia. He felt slightly better for 2 daysbut then had fever again on 04/28, this time with significant chills & drenching sweats. He was admitted to [facility] on 04/29 for the fever. He also c/o severe headache since 04/28. He also has a baclofen pump in situ. Hospital Course: Mr. Cullen was admitted to [facility] on 04/30/2010. See above hx for details. [...] stable since surgery. Discharge Disposition: Home with [facility], home PT Diet: Resume pre-op diet. Increase fiber and fluids to avoid constipation. Activity: No lifting greater than 10 pounds. No repetitive bending, twisting. No driving until seen in follow up in the neurosurgery clinic. No tub bathing, no hot tubs, and no swimming for 30 days post-operatively. Keep incision dry. Followup: 05/[address] Maurice Baron [facility] Transfer Orders to Home Health Care Patient [...] drainage, warmth). Call the Neurosurgery Clinic at [phone] with any incisional changes. Keep incision dry. [...] in strength to your extremeties. Neurosurgery clinic [phone]. Diet Order Comments: Resume pre-op diet. Increase fiber and fluids to avoid constipation. Clinic Referral Order Comments: CLINIC: [facility]: Neurosurgery; [phone]; [address] [place] [address] DOCTORS NAME: Dr. Maurice Baron WHEN TO [...] to Home Care Order Comments: AGENCY NAME: [facility] home care Discharge Medication Orders Current Discharge [...] provider. Geetha Osuna RN Neurosurgery Nurse Clinician [phone] I, Geetha Osuna RN, am serving as [...] from the original note were not included. [address] [place] [address] Discharge Instructions for: Jie Cullen Thank you for choosing [facility] as your hospital. A copy of [...] additional information about your medications, visit this [email or web address] website, [email or web address]. Current Discharge Medication List START taking these [...] drainage, warmth). Call the Neurosurgery Clinic at [phone] with any incisional changes. Keep incision dry. [...] in strength to your extremeties. Neurosurgery clinic [phone]. Diet Resume pre-op diet. Increase fiber and fluids to avoid constipation. Clinic Referral CLINIC: [facility]: Neurosurgery; [phone]; [address] [place] [address] DOCTORS NAME: Dr. Maurice Baron WHEN TO [...] Admit to Home Care AGENCY NAME: Greg winneconne alf Care Instructions Patient Teaching Handouts NONE Valuables/Medications [...] wound and fever Community Resources NONE Contact [address] [address] For questions about your discharge instructions call the nursing unit : [facility] [phone] Emergency & Urgently Needed Care: For emergencies call 911 and/or get medical help right away. If you are a [facility] member and have medical needs after clinic hours you may call the CareLineat [phone] or . All medical devices (telemetry/IV/etc) unless otherwise ordered, have been removed before discharge. Smoking and second-hand smoke exposure: Smoking damages blood vessels, reduces the oxygen in your blood and makes your heart beat too fast. If you smoke you should quit. Everyone should avoid second- hand smoke. If you would like further assistance after your discharge, please contact [phone] or visit [email or web address] can offer further [...] weight will also be followed by the Support Associate when you go in for your treatment. [...] understand my discharge instructions: Jie Cullen (or Therapeutic Specialist) documented in this encounter Medications at Time [...] Dulce Palafox - 05/13/2010 10:02 PM CDT [facility] Discharge Note - Nursing Admission Date/Time: 04/30/2010 [...] Lázaro Lr - 05/13/2010 8:16 PM CDT [facility]. ID Progress Note Date of service: 05/13/10 [...] concerns arise subsequently. Lázaro Lr MD Pager [phone] Beth Lopez - 05/13/2010 4:40 PM CDT [facility] Transfer Orders to Home Health [...] drainage, warmth). Call the Neurosurgery Clinic at [phone] with any incisional changes. Keep incision dry. [...] in strength to your extremeties. Neurosurgery clinic [phone]. Diet Order Comments: Resume pre-op diet. Increase fiber and fluids to avoid constipation. Clinic Referral Order Comments: CLINIC: [facility]: Neurosurgery; [phone]; [address] [place] [address] DOCTORS NAME: Dr. Maurice Baron WHEN TO [...] to Home Care Order Comments: AGENCY NAME: [facility] home care Discharge Medication Orders Current Discharge [...] have been electronically signed. (In accordance with [employer] Fed. Regulation Set, Fed A0232 - Types of Authentication) Discharging MD: Dr Powell Today's Date: 05/13/10 --- End of Report --- Beth Lopez - 05/13/2010 4:03 PM CDT Brief Weekend Social Work Note Received request to arrange home PT for pt for d/c today. Pt had previously been assessed by [facility] Physical Therapy in [facility] (ph# [phone], fax [phone]). Left message regarding referral @[email or web address] and requested order from MD and will have [employer]STRU[employer] fax it. No further needs at this time. Beth Lopez CEMENT FINISHER APPRENTICE, [facility] Beeper [phone] Faxed orders to Greg PT. Ozzy Dietz RN - 05/13/2010 3:21 PM CDT [facility] Progress Note (Nursing) Identify/Problem(s): Comfort [...] Squires, PT - 05/13/2010 1:54 PM CDT [facility] IP Physical Therapy Progress Note PT Visit Room/Bed: [id number] Patient Seen: bedside Diagnosis: Encounter Diagnoses Code Name Primary? 453.40U DVT (Deep Venous Thrombosis) Yes ??? 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 784.0 Headache ??? 780.60BQ Fever ??? 728.85T Muscle Spasticity ??? 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 56353 CAREPLAN: BACLOFEN ??? 564.81 Neurogenic Bowel ??? [...] PM: 25 minutes Yen Squires, PT Pager: [phone] Department: [id number] --- End of Report --- Kiko Powell - 05/13/2010 12:42 PM CDT [facility] MEDICINE PROGRESS NOTE DOA: 04/30/2010 1:25 [...] Prophylaxis: back on coumadin. Kiko Powell MD [facility] Hospitalist Pager: [phone] TT spent >35 min and 50% in [...] Bush RN - 05/13/2010 1:56 AM CDT [facility] Progress Note (Nursing) Identify/Problem(s): Pain/comfort/skin integrity Desired [...] Walters RN - 05/12/2010 11:47 PM CDT [facility] Progress Note (Nursing) Identify/Problem(s): GI function Desired [...] Geetha Osuna - 05/12/2010 2:49 PM CDT [facility] NeuroSurgery Progress Note 05/12/2010 Vitals Temp (24hrs), [...] weekend Geetha Osuna RN Neurosurgery Nurse Clinician [phone] I, Geetha Osuna RN, am serving as [...] Tania Brantley - 05/12/2010 11:27 AM CDT [facility] Care Management Senior Capital Markets Specialist Follow Up Note Admission Date/Time: 04/30/2010 1:25 [...] completed by Tania Brantley RN, Pager Number [phone] --- End of Report --- Sedrick Mary Ann M - 05/12/2010 10:24 AM CDT [facility] Physical Therapy Progress Note PT Visit Room/Bed: [id number] Patient Seen: bedside Diagnosis: Encounter Diagnoses Code Name Primary? 322.9P Meningitis Yes ??? 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 784.0 Headache ??? 780.60BQ Fever ??? 728.85T Muscle Spasticity ??? 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 30273 CAREPLAN: BACLOFEN ??? 564.81 Neurogenic Bowel ??? [...] Mary Ann Dubose, PT Department number is [phone] Pager number is [phone] --- End of Report --- Kiko Powell S - 05/12/2010 9:56 AM CDT [facility] MEDICINE PROGRESS NOTE DOA: 04/30/2010 1:25 [...] coordinate at clinic / local ER - case management manager aware & involved. Pt underwent REVISION OF [...] Fluid c/s, urine cultures Kiko Powell MD [facility] Hospitalist Pager: [phone] TT spent >15 min and 50% in CC of above issues which includes review of EPIC including notes/labsand imaging, discussion of care plan with pt and time spent in documentation on the pt's floor today. Dave Sapp PA-C - 05/12/2010 9:23 AM CDT [facility] Progress Note (Nursing) Identify/Problem(s): GI/Activity [...] Patria Wright - 05/12/2010 8:28 AM CDT [facility] Occupational Therapy Brief Contact Note Orders received [...] Patria Wright OTR/L (pager) OT Dept #: [phone] - OT Weekend Pager #: [phone] - [facility] Main #: [phone] --- End of Report --- Merced Snowden RN - 05/12/2010 2:53 AM CDT [facility] Progress Note (Nursing) Identify/Problem(s): Comfort [...] Walters RN - 05/12/2010 12:36 AM CDT [facility] Progress Note (Nursing) Identify/Problem(s): lethargy Desired Outcome(s): Return to usual level of alertness Evaluation: Patient unable to stay awake. His said he is receiving normal dose of baclofen from his pump. Refused oral doses. Reported moderate headache on right side of bahai. Area massaged for 10min. Pt fell asleep [...] Geetha Osuna - 05/11/2010 3:10 PM CDT [facility] NeuroSurgery Progress Note 05/11/2010 Vitals Temp (24hrs), [...] updated, answered questions Change dressing daily Dc HAND MARKER Will contact PM&R to see if we can back off Baclofen Hgb noted, will monitor for now Up with assist PT/OT Ok to resume full anticoagulation today Appreciate medicine following Antibiotic recs per ID Geetha Osuna RN Neurosurgery Nurse Clinician [phone] I, Geetha Osuna RN, am serving as [...] Garth Rodriguez - 05/11/2010 1:34 PM CDT [facility] Progress Note (Nursing) Identify/Problem(s): Pain, [...] states Not bad. Pt only using Dilaudid HAND MARKER total for this shift was 0.4mg. Patient [...] plan of care with patient, family and care trainer. Romelia Rodriguez RN --- End of Report --- Garth Rodriguez - 05/11/2010 12:50 PM CDT Problem: Falls Risk Goal: Moderate Risk (5-10): Fall Prevention I applied all active moderate risk falls prevention interventions. Jamie Ralph RD, ALEJA - 05/11/2010 11:36 AM CDT [facility] Nutrition Reassessment and Care Plan CURRENT NUTRITION [...] have questions call Registered Dietitian Beeper at [phone] Weekend pager: [phone] Progress Since Last Assessment Current Nutrition/Diet Order: [...] Tania Brantley - 05/11/2010 10:47 AM CDT [facility] Care Management Senior Capital Markets Specialist Follow Up Note Admission Date/Time: 04/30/2010 1:25 [...] completed by Tania Brantley RN, Pager Number [phone] --- End of Report --- Kiko Powell [...] mg in NaCl 0.9 % 50 mL HAND MARKER syringe IV Titrate ??? iron polysaccharide complex [...] coordinate at clinic / local ER - case management manager aware & involved. Pt underwent REVISION OF [...] de la cruz changed. Kiko Powell MD [facility] Hospitalist Pager: [phone] TT spent >35 min and 50% in CC of above issues which includes review of EPIC including notes/labsand imaging, discussion of care plan with pt and time spent in documentation on the pt's floor today. Merced Snowden RN - 05/11/2010 5:08 AM CDT [facility] Progress Note (Nursing) Identify/Problem(s): Comfort Desired Outcome(s): Patient will be comfortable Evaluation: Patient alert and oriented during assessment. Lethargic overnight. Turned x3. De La Cruz site CDI. Urine yellow with 1550ml out this shift. Has dilaudid HAND MARKER 0.2 bumps only 15 min lockout, used 0.61mg this shift. Pain is managed well with HAND MARKER per patient. Dressings are CDI. Was able [...] Ozzy Busby - 05/10/2010 10:51 PM CDT [facility] Progress Note (Nursing) Identify/Problem(s): Comfort Desired Outcome(s): Pt will be comfortable Evaluation: Pt drowsy most of the day. Denies pain. HAND MARKER dilaudid basal stopped @ 1600, bumps only [...] ml Output 4600 ml Net -2965 ml @[id number]@Last Chem10 results: Lab Results Component Value Date/Time [...] Bernard Alcantar - 05/10/2010 3:35 PM CDT [facility] Progress Note (Nursing) Identify/Problem(s): Pain;nausea Desired Outcome(s): Pt will be comofrtable. Pt will not be nauseated. Evaluation: Pt has been using HAND MARKER for headache. He has been sleepy. Pt was nauseated . Zofran was helpful. Plan: Continue HAND MARKER. Medicate as need for nausea. Bernard Alcantar RN --- End of Report --- Archana Pace - 05/10/2010 11:23 AM CDT [facility] Armored Car Guard And Driver Department Progress Note Restorative Art Embalmer Notes: Initial assessment for spiritual and emotional support needs for pt/family during this hospitalization. Jeff and (Heather) are known to me from previous hospitalization. I met with Jeff and Heather this morning; Jeff is c/o FIELDS after having bath this morning; using HAND MARKER for pain relief. Heather is hopeful that [...] flat bedrest anymore. They are aware of glove turner availability. Plan: Armored Car Guard And Driver will continue following for ongoing spiritual and emotional support to pt/family. Report Completed by: Archana Pace, [facility] Staff Restorative Art Embalmer --- End of Report --- Kiko Powell - 05/10/2010 8:34 AM CDT [facility] MEDICINE PROGRESS NOTE DOA: 04/30/2010 1:25 [...] mg in NaCl 0.9 % 50 mL HAND MARKER syringe IV Titrate ??? iron polysaccharide complex [...] coordinate at clinic / local ER - case management manager aware & involved. Pt underwent REVISION OF [...] cbc, u/a in am Kiko Powell MD [facility] Hospital[facility] Pager: [phone] TT spent >35 min and 50% in CC of above issues which includes review of EPIC including notes/labsand imaging, discussion of care plan with pt and time spent in documentation on the pt's floor today. Merced Snowden RN - 05/10/2010 3:44 AM CDT [facility] Progress Note (Nursing) Identify/Problem(s): Post op status Comfort Desired Outcome(s): Patient will have stable post op course Patient will be comfortable Evaluation: Patient a/o x4, neuros and cms intact. PERRLA. VSS, BP low @ 0000 98/65, re- check @ 0400 111/68. Reported that pain is adequately managed with HAND MARKER pump at 0.2/0.2/q15m lockout. Per report patient's [...] Ozzy Dietz - 05/09/2010 11:58 PM CDT [facility] Progress Note (Nursing) Identify/Problem(s): Post-op Desired Outcome(s): Stable post-op status Evaluation: Pt alert & oriented x4. POD#0 for Revision of Baclofen Pump Catheter. Rating pain 5-7/10. Dilaudid for pain given. 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 I reviewed Dr. Garcai's last note, and agree with her plan [...] Martha Thomas - 05/09/2010 5:19 PM CDT [facility] PM&R Progress Note () Date of service: 05/09/2010 Diagnosis: Encounter Diagnoses Code Name Primary? 784.0 Headache Yes ??? 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 780.60BQ Fever ??? 728.85T Muscle Spasticity ??? 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 18109 CAREPLAN: BACLOFEN ??? 564.81 Neurogenic Bowel ??? [...] replacement, intrathecal baclofen was removed and replaced [id number] of baclofen. . OBJECTIVE: Patient Vital Signs [...] Bernard Alcantar - 05/09/2010 3:06 PM CDT [facility] Progress Note (Nursing) Identify/Problem(s): Pain Desired Outcome(s): Pt will be comfortable Evaluation: Pt has been off floor since 1100. Prior to leaving did not c/o pain. Plan: Medicate if needed for pain. Bernard Alcantar RN --- End of Report --- Bernard Alcantar - 05/09/2010 3:05 PM CDT [facility] Nursing Pre-Op Note Admission Date/Time: 04/30/2010 1:25 [...] Tania Brantley - 05/09/2010 12:37 PM CDT [facility] Care Management Senior Capital Markets Specialist Follow Up Note Admission Date/Time: 04/30/2010 1:25 [...] write orders for IV infusions for the [address] while ptin need of iv [...] completed by Tania Brantley RN, Pager Number [phone] --- End of Report --- Kiko Powell - 05/09/2010 8:56 AM CDT [facility] MEDICINE PROGRESS NOTE Patient: Jie Cullen : [...] coordinate at clinic / local ER - case management manager aware & involved. Today pt underwent REVISION [...] Updated at bedside. Kiko Powell MD Pager: [phone] DOS: 05/09/2010 Filomena Diaz RN - 05/09/2010 4:57 AM CDT [facility] Progress Note (Nursing) Identify/Problem(s): Safety Comfort Desired [...] Dulce Palafox - 05/08/2010 9:39 PM CDT [facility] Progress Note (Nursing) Identify/Problem(s): Comfort [...] Priti Hickey - 05/08/2010 4:11 PM CDT [facility] Progress Note (Nursing) Identify/Problem(s): Skin integrity Coping [...] Poonam Wallace - 05/08/2010 12:00 PM CDT [facility] MEDICINE PROGRESS NOTE Date of Service : [...] coordinate at clinic / local ER - case management manager aware & involved. Polyuria - notes polyuria [...] care. Updated at bedside. Poonam Wallace MD [phone] Geetha Osuna - 05/08/2010 11:15 AM CDT [facility] NeuroSurgery Progress Note 05/08/2010 Vitals Temp (24hrs), [...] tolerated Geetha Osuna RN Neurosurgery Nurse Clinician [phone] I, Geetha Osuna RN, am serving as [...] Tena Jasso - 05/08/2010 5:59 AM CDT [facility] Progress Note (Nursing) Identify/Problem(s): Comfort [...] Bernard Alcantar - 2010 11:11 PM CDT [facility] Progress Note (Nursing) Identify/Problem(s): Pain Desired Outcome(s): Pt will be comfortable. Evaluation: Pt c/o headache. Tylenol not effective. He received 2 vicodin with good relief. Plan: Medicate as needed for pain. Bernard Alcantar RN --- End of Report --- Priti Hickey - 2010 5:43 PM CDT [facility] Progress Note (Nursing) Identify/Problem(s): Pain Coping Skin [...] Poonam Wallace - 2010 11:53 AM CDT [facility] MEDICINE PROGRESS NOTE Date of Service : [...] care. Updated at bedside. Poonam Wallace MD [phone] Tena Jasso - 2010 3:52 AM CDT [facility] Progress Note (Nursing) Identify/Problem(s): Comfort Desired Outcome(s): Pt will be comfortable Evaluation: Pt is A&O, no c/o pain or FIELDS. De La Cruz probably was kinked and was backing up and leaked around. is staying in the room. Pt slept through the whole night. K+ is 3.3 and Hgb 9. Plan: Continue to [facility] Tena Jasso RN --- End of Report [...] Priti Hickey - 05/06/2010 5:57 PM CDT [facility] Progress Note (Nursing) Identify/Problem(s): Skin integrity Mobility [...] Poonam Wallace - 05/06/2010 12:12 PM CDT [facility] MEDICINE PROGRESS NOTE Date of Service : [...] care. Updated at bedside. Poonam Wallace MD [phone] Priti Hickey - 05/06/2010 11:02 AM CDT [facility] Progress Note (Nursing) Identify/Problem(s): Comfort [...] Markos Ford - 05/06/2010 2:14 AM CDT [facility] Progress Note (Nursing) Identify/Problem(s): Comfort Pain Desired [...] Carolina Baca - 05/05/2010 8:25 PM CDT [facility] Progress Note (Nursing) Identify/Problem(s): pain Wound Desired [...] Elise Briseno - 05/05/2010 6:37 PM CDT [facility] Progress Note (Nursing) [phone] Identify/Problem(s): Wound healing Desired Outcome(s): Will have [...] Martha Thomas - 05/05/2010 4:43 PM CDT [facility] PM&R Progress Note () Date [...] valium if needed. 3. Please call PMR injection molding machine setter MD if questions over the weekend. Thank you. Martha South MD Total time: 25minnseling and Coordination time: 20min --- End of Report --- Poonam Wallace - 05/05/2010 11:27 AM CDT [facility] MEDICINE PROGRESS NOTE Date of Service : [...] & sister at bedside. Poonam Wallace MD [phone] Britni Huerta Y - 05/05/2010 10:31 AM CDT [facility] Clinical Pharmacy Follow Up Kinetics Note Assessment: Jie Cullen, [id number], is a 64 yr year old male receiving Vancomycin 2g iv q12h and cefepime 2g iv q12h for meningitis Recent Labs Basename 05/05/10 0615 ??? VANCO 17.1* Recommendations: No changes to current vanco regimen since above level is within goal 15-20 mg/L. Will recheck level in 5-7days. Will follow. 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 Pt's primary MD is out of office until May 10 and his clinic has a different injection molding machine setter physician everyday, so that makes it tough [...] completed by Tania Brantley RN, Pager Number [phone] --- End of Report --- Daniel Jassoron Clemente - 05/04/2010 10:15 AM CDT [facility] NeuroSurgery Spine Progress Note Date: 05/04/2010 Vitals [...] RN, ACNS-, CNRN Neuroscience Clinical Nurse Specialist [phone] --- End of Report --- Maurice Baron [...] at high risk of baclofen withdrawal) Zina aGrcia MD 05/04/2010 Mónica Saldana - 05/04/2010 6:27 AM CDT [facility] Progress Note (Nursing) Identify/Problem(s): Headache [...] Mckayla Hernandez - 05/03/2010 6:30 PM CDT [facility] Clinical Pharmacy Follow Up Kinetics Note Assessment: Jie Cullen, [id number], is a 64 yr year old male receiving vanco 1750mg IV q12h and poeugiro8k IV q12h for meningitis. Recent Labs Basename 05/03/10 1745 ??? VANCO 13.0* Desired trough 15-20 mcg/ml Recommendations: The trough level is below the goal range. Will increase vanco to 2g IV q12h and recheck on Sat, 05/05. Mckayla Hernandez Pager Number [phone] --- End of Report --- Lucy Parker - 05/03/2010 4:02 PM CDT [facility] NeuroSurgery Progress Note Pt has been experiencing [...] KaronTania Ruben - 05/03/2010 3:27 PM CDT [facility] Care Management Senior Capital Markets Specialist Initial Assessment Admission Date/Time: 04/30/2010 1:25 AM Attending MD: Maurice Baron Data Jie Cullen was referred to this Senior Capital Markets Specialist for discharge planning. Chart reviewed, discussed with interdisciplinary team, as well as with patient and family. Jie Cullen was admittedto S10 for Headache [784.0] (HEADACHE). Insurance: Payor: MEDICARE PART B ONLY [id number] Plan: MEDICARE PART B ONLY Product Type: Medicare Current Living Situation: Patient lives with their spouse. Support System: and family Services Involved: none Additional Data: Pt's primary MD is Dr. Loretta Mcmahan at the [facility] Coordination of Care and Referrals: Provided patient/family [...] could go into the ER at the [address] in [place] . I did speak with compressor house operator in the ED at hospital who tells me it is possible to provide this service for pt, ieshachuck would need the orders to come from pt's primary MD. I called pt's clinic this afternoon and los pt's primary MD is out of the office until May 10, that I would need to speak with the injection molding machine setter MD. The injection molding machine setter MD changes everyday, therefore I did not [...] completed by Tania Brantley RN, Pager Number [phone] --- End of Report --- Olimpia James RN - 05/03/2010 3:08 PM CDT [facility] Progress Note (Nursing) Identify/Problem(s): Comfort [...] Busby RN - 05/02/2010 9:59 PM CDT [facility] Progress Note (Nursing) Identify/Problem(s): Comfort and bowels [...] Martha Thomas - 05/02/2010 3:34 PM CDT [facility] PM&R Progress Note () Date [...] James RN - 05/02/2010 12:16 PM CDT [facility] Progress Note (Nursing) Identify/Problem(s): Comfort, [...] Lucy Parker - 05/02/2010 10:58 AM CDT [facility] NeuroSurgery Progress Note Pt doing well, resting [...] at home vs TCU depending on insurance fly worker will look into discharge planning, home [...] Powell, PharmD - 05/02/2010 8:15 AM CDT [facility] Clinical Pharmacy Follow Up Kinetics Note Assessment: Jie Cullen, [id number], is a 64 yr year old male receiving Vancomycin 1500mg iv q12h for possible NATIONAL ACCOUNTS RECRUITER infection. Recent Labs Basename 05/01/10 1940 ??? VANCO 11.1* ??? GENT -- ??? TOBR -- ??? AMKC1 -- Desired level(s) are: trough 15-20 mcg/ml Recommendations: As level below desired range, will increase regimen to 1250mg iv q8h and follow. Will recheck a trough level in next few days if remains on vanco. Linda Powell Pager Number [phone] Later- Spoke with Dr Garcia of ID. Patient needs to be on a q12h regimen for discharge, so will change vanco to 1750mg iv q12h starting this afternoon. Will follow and check a trough level if patient remainsin the hospital in next few days. Linda Powell PharmD --- End of Report --- Merced Snowden RN - 05/02/2010 4:42 AM CDT [facility] Progress Note (Nursing) Identify/Problem(s): Comfort, Skin integrity [...] Dhaliwal RN - 05/01/2010 10:59 PM CDT [facility] Progress Note (Nursing) Identify/Problem(s): Transfer Desired Outcome(s): [...] Ankita France - 05/01/2010 4:26 PM CDT [facility] Progress Note (Nursing) Identify/Problem(s): Pain Desired Outcome(s): [...] bowel regimen. Plan to transfer patient to [facility]. Plan: Continue to assess and monitor. Transfer to [facility]. Ankita France RN --- End of Report --- Ankita France - 05/01/2010 4:20 PM CDT Problem: Falls Risk Goal: Moderate Risk (5-10): Fall Prevention I applied all active moderate risk falls prevention interventions. Martha Thomas - 05/01/2010 10:47 AM CDT [facility] PM&R Consult Note ()/f/up Date of service: 05/01/2010 Diagnosis: Encounter Diagnoses Code Name Primary? 322.9P Meningitis ??? 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 784.0 Headache ??? 780.60BQ Fever ??? 728.85T Muscle Spasticity YES ??? 191.9DC Ependymoma I was asked by to evaluate Jie A Silasfletcher for adjustment of baclofen pump. 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 Patient readmitted to [facility] on 04/30 due to fever,chills, neck pain [...] REQUESTS Unspecified - ??? AEROBIC CULT NUMBER [id number] - ??? CULTURE Preliminary Culture Negative;Reincubate - [...] 1.9 1.6-2.3 (mg/dl) PHOSPHORUS Component ValueRange???PHOSPHORUS3.6 2.5-4.5 (mg/dl)INR/PROTIMEComponentValueRange???HRGDLBW38.5 (*)12.0-14.5 (sec)???INR2.5 - HEMOGRAM/PLTSComponentValueRange???WBC6.8 4.0-11.0 (k/ul)???RBC2.89 (*)4.5-5.9 (M/ul)???HGB8.6 (*)13.5-17.5 (g/dl)???HCT25.6 (*)41.0-53.0 (%)???MCV88.7 80-100 (fl)???MCH29.9 26-34 (pg)???MCHC33.7 32-36 (g/dl)???RDW15.1 (*)11.5-14.5 (%)???SXZV467 150-450 (k/ul)???MPV8.1 6.5-10.0 (fl) PROCEDURE NOTE: (resident was assisting with the programming of the pump under direct supervision) Pump interrogated: 05/01/2010 Current settings: Baclofen Concentration 1,000mcg/ml on simple continuous mode at a dose of 199.9 mcg/day. Pump updated settings: Baclofen concentration 1,000 mcg/ml on simple continuous mode increased to 249.8 mcg/day. Alarm date: 09/21/2010 [place] volume: 37.3ml ASSESSMENT 64 y/o male with [...] Loree Allen - 05/01/2010 9:22 AM CDT [facility]. Infection Control Practitioner Note Issue Isolation status for meningitis Action Per Dr. Llamas (ID service0 note dated 03.30.10, patient's droplet precautions could have been discontinued at 1700 yesterday. Droplet order still in place. Patient has received 24 hours of appropriate antibiotics per ID. Will discontinue droplet precautions. Comments Will update staff during rounds. Please call infection prevention and control ext. [phone] with any additional isolation questions. Loree Allen RN, Dispatch Associate --- End of Report --- Paz Choudhary - 05/01/2010 4:59 AM CDT [facility] Progress Note (Nursing) Identify/Problem(s): Hypotension Desired Outcome(s): [...] Paulina Ibrahim - 04/30/2010 11:30 PM CDT [facility] Progress Note (Nursing) Identify/Problem(s): Headache [...] Ann Sullivan - 04/30/2010 3:39 PM CDT [facility] Progress Note (Nursing) Identify/Problem(s): Headache Post LP [...] Cristine Henson - 04/30/2010 2:29 PM CDT [facility] PM&R Progress Note () Date [...] 80-100 (fl)???MCH30.1 26-34 (pg)???MCHC34.6 32-36 (g/dl)???RDW14.3 11.5-14.5 (%)???NRNN425 150-450 (k/ul)???MPV7.1 6.5-10.0 (fl)???PMN/BAND80 (*)43-72 (%)???LYMPH13 (*)17-43 (%)???MONO7 4-12 (%)???EOS0 0-8 (%)???BASO0 0-1 (%)???PMN ABSOLUTE7.1 1.8-7.7 (k/ul)???LYMPH ABSOLUTE1.1 1.0-4.8 (k/ul)???MONO ABSOLUTE0.6 0.1-0.7 (k/ul)???EOS ABSOLUTE0.0 0.0-0.5 (k/ul)???BASO ABSOLUTE0.0 0.0-0.2 (k/ul)BASIC METABOLIC PANELComponentValueRange???BUN10 7-20 (mg/dl)???KVPCMW878 135-145 (mmol/L)???POTASSIUM4.3 3.5-5.1 (mmol/L)???LPDMFSTD276 98-107 (mmol/L)???CO228 22-30 (mmol/L)???TIUBVPN628 70-180 (mg/dl)? ?CREATININE0.71 0.66-1.25 (mg/dl)? ?GFR, ESTIMATED>60.00 [...] any questions re: tone management. Please page [phone] with any questions or concerns re: ITB pump or tone management tonight. will be available tomorrow at [phone]. Total time: 25. Counseling and Coordination time: [...] Alyce Arguelles - 04/30/2010 7:54 AM CDT [facility] Clinical Pharmacy Initial Kinetics Note Assessment: Jie Cullen, [id number], is a 64 year old male started on Meropenem 2 gm IV q8h and Vancomycin 1 gm IV q12h for possible meningitis. Data: Last Height: 5' 10 (177.8 cm) Last Wt - Scale: 257 lb 0.9 oz (116.6 kg) [place] Body Weight: 73 kg Dosing Weight: 90 [...] this matter. Thanks. Alyce Arguelles Pager Number: [phone] --- End of Report --- Aidee Villarreal - 04/30/2010 3:09 AM CDT [facility] Progress Note (Nursing) Identify/Problem(s): Headache [...] Jaden Tavarez - 04/29/2010 10:29 PM CDT [facility] Clinical Pharmacy Medication Reconciliation Note [...] condition. PHARMACIST NAME: Jaden Tavarez Phone/Pager #: [phone] --- End of Report --- Critsine Henson - 04/29/2010 8:13 PM CDT [facility] PM&R Progress Note () Date [...] 1 g IV Now Subjective: Called by dental laboratory technician apprentice to re-start pump following MRI. Mr. Cullne is a 64 y/o male with history [...] in 2006, followed by Dr. Hooper at [facility] for management.Last hospitalization dose was increased [...] S/p arthroscopic knee procedure SHx: Lives in [facility] with his , doesn't smoke, no [...] interogated: SynchroMed IIB 8637-40 40mL Serial number [id number] Catheter: two- piece, Total Catheter Volume 0.222 [...] to risk of ITB pump infection if NATIONAL ACCOUNTS RECRUITER is infected. Discussed possible need for explant if infected. They are agreeable with side-port access for CSF sample. Will begin decreasing ITB dose in anticipation of possible explant; we can increase the dose later if pump is not explanted. -Called [employer] support to verify catheter information. They do [...] not locate a side-port access kit in [facility]'s materials room or IV pharmacy; one was located at [place] and brought to the ER. PROCEDURE NOTE: [...] 225 mcg/day simple continuous. Dose verified on programmer engineering and scientific by the patient. Alarm date of 10/07/2010 noted. If primary team needs a CSF sample, may consider an image-guided access of the side-access port (ultrasound or CT) vs a traditional LP. Please page me at [phone] prior to procedure as there is a specific kit needed and specific techniques and reprogramming needed to minimize risk of intrathecal baclofen overdose or withdrawal. Discussed with ER team. Will follow-up on patient in the morning, please page me at [phone] with any questions or concerns prior to that. Total time: 80. Counseling and Coordination time: 50. Cristine Henson MD --- End of Report --- documented in this encounter Procedure Notes Maurice Baron X - 06/26/2010 11:07 AM CDT DATE OF SURGERY: 05/09/2010 STAFF SURGEON: Maurice Baron MD ENVIRONMENTAL MARKETER: ROXY Fragoso ANESTHESIA: General. PREOPERATIVE DIAGNOSES: 1. [...] up, extubated, and taken stable to the [facility]. The procedure was well tolerated with no apparent complications. Needle and sponge counts correct and verifiedat the end of the case. EBL was less than 5 mL. MD hailey David Dictated: 06/26/2010 11:07:23 Transcribed: 06/26/2010 15:10:40 Doc #: [id number] cc: 1 Page 2 Patient Name: JIE CULLEN INPATIENT OPERATIVE REPORT CONFIDENTIAL MEDICAL RECORD [address] [id number] Page 1 Patient: JIE CULLEN Location: [facility] HPN: [id number] Admit Date: 04/30/2010 Date of : 1945 Discharge Date: 05/13/2010 Age: 65Y INPATIENT OPERATIVE REPORT Lucy Parker - 05/09/2010 1:48 PM CDT [facility] Brief Operative Progress Note Surgery Date: 05/09/2010 [...] Replaced catheter tubing Plan: Transfer back to [address] [place] [address] [facility] [...] The procedure was medically necessary for an senior administrative assistant because Dr. Baron needed the operative exposure and assistance that I provided. This allowed him to safely and efficiently operate. It was also important that I help ligate blood vessels to maintain hemostasis and reduce the bleeding risk. The assistance that I provided reduced operative time which meant less general anesthetic for the patient. Lucy Parker PA-C --- End of Report --- [facility] ANESTHESIA, PROVIDER - 05/09/2010 12:00 AM T [facility] ANESTHESIA, PROVIDER - 05/09/2010 12:00 AM T [facility] ANESTHESIA, PROVIDER - 05/09/2010 12:00 AM T [facility] ANESTHESIA, PROVIDER - 05/09/2010 12:00 AM T [facility], PROVIDER - 05/09/2010 12:00 AM CDTAssociated Order(s): EKG IP; EKG IP Birgit Melton - 05/01/2010 3:06 PM CDT [facility] Radiology Drainage Note Procedure: Ultrasound guided drainage [...] Jennyfer Ramírez - 05/01/2010 1:09 PM CDT [facility] PICC Line Insertion Procedure Note Lacey Lumen PICC Site One Date of Service: 05/01/10 UNIVERSAL PROTOCOL: Procedure Location: Condition: Elective Consent: Imformed Written Patient Identification: Verified Time Out: Performed Site Prep: Chloraprep Protective Barriers: Maximum Barriers Used including Handwashing, Sterile Gown, Gloves, Mask, Eye Protection & Cap PROCEDURE: Insert/Remove: Inserted Inserted By?: PICC Services Indication: Antibiotics Crew Foreman: Power PICC Size (Yi): 5 Length (cm): 47 CM Lot #: [id number] Location: Right or Left: Right Site: Basilic Dressing: Tegaderm w/antimicrobial patch Ultrasound guidance used for access. Jennyfer Ramírez --- End of Report --- [facility] - 04/30/2010 12:00 AM CDTAssociated Order(s): EKG [...] fevers and headaches. He was admitted to [facility] on 04/29 for fever and was found [...] patient is and lives with his in [place]. REVIEW OF SYSTEMS: Positive for decreased ability [...] needs further eval. Jayna Ambriz MD [facility] Dictated: 05/08/2010 17:54:52 Transcribed: 05/08/2010 19:39:57 Doc #: [id number] cc:Maurice Baron MD 1 Page 3 Patient Name: JIE CULLEN CONSULTATION CONFIDENTIAL MEDICAL RECORD [address] [phone] Page 1 Patient: JIE CULLEN Location: [facility] HPN: [id number] Admit Date: 04/30/2010 Date of : 1945 Discharge Date: Age: 65Y CONSULTATION Zelalem Cohen - 2010 10:03 AM CDT [facility] PM&R Consult Note () S: Pt is [...] 2:44 PM CDTAssociated Order(s): MEDICINE INPT CONSULT [facility] Medicine Consult Patient Name: Jie Cullen. [...] 04/24/2010 he was seen at ER in [place] &was treated with IM ceftriaxone & azithromycin for possible pneumonia. He felt slightly better for 2 days but then had fever again on 04/28, this time with significant chills & drenching sweats.He was admitted to [facility] on 04/29 for the fever. He [...] 1999 S/p resection by Dr. Glasgow at [place] in 05/2000. However resection was incomplete due [...] 1 at baseline. Lives with his in [place]. . Physical Examination: Vital Signs: Patient Vitals [...] please call with Questions. Poonam Wallace MD [phone] 05/04/2010 Jessica Garcia - 05/01/2010 11:15 AM CDTAssociated Order(s): WOUND/WELDER 2ND SHIFT CONSULT Wound/windows infrastructure engineer Consult Note Was consulted by nursing to provide wound care recommendations to surgical site; will defer to the patient's primary team Neurosurgery to provide orders; spoke with RN who will contact NS to place orders. Please contact the wound care service with any further questions or concerns. [phone]. Jessica Breen MSN, RN, ANP, CWOCN [phone] pager [phone] office Radames Llamas - 04/30/2010 2:32 PM [...] knee procedure Social history He lives in [place] with his . They have a dog [...] is a 64 yr male admitted to [facility] on 04/29/2010 3:00 PM with No diagnosis [...] 04/29/2010 22:18:42 Transcribed: 04/29/2010 23:14:32 Doc #: [id number] cc: 1 Page 1 Patient Name: JIE CULLEN Visit Date: 04/29/2010 EMERGENCY MEDICINE NOTE CONFIDENTIAL MEDICAL RECORD [address] [phone] Page 1 Patient: JIE CULLEN [id number] Date of : 1945 Age: 64Y Visit Date: 04/29/2010 EMERGENCY MEDICINE NOTE Alia Negron - 04/29/2010 9:58 PM CDT [facility] Clothing List Patient Name: Jie Cullen Today's [...] of person taking item home: Signature ___ JOLE Magdaleno Signature ___ (Receiving Nursing Unit) I have received all of my belongings at discharge: Patient Signature: Date: Staff Signature: Date: --- End of Report --- Alia Negron - 04/29/2010 9:58 PM CDT [facility] Patient's Valuables At Admission Patient Name: Jie [...] Jewelry: Kept with Patient Watch Watch: No [place] #: 0 Items Belonging to Other People Items Belonging to Other People: No No items were sent to the Dot Compliance Specialist's Office. Any unclaimed personal items deposited into the custody of the hospital will be disposed of by the hospital if they are not claimed within 180 days of discharge. Patients' Signature Witness Life Science Research Assistant Therapeutic Specialist's Signature Witness (Print this note to be [...] Zelalem Dick - 04/29/2010 4:35 PM CDT [facility] Emergency Department Attending Supervision Note I performed [...] strength equal BLE, sensation intact bilateral UEs, contractor buyer II-XII grossly intact Assessment: 64 yo male here with fever, FIELDS, neck pain concerning for meningitis vs. Postop abscess/infection Plan: Re-check Vitals Imaging: MR Scan(s): MRI thoracic Laboratory: CBC, Chem 8 and CSF for gram stain and culture, cell count and diff, protein, glucose, AFB Consultation: Neurosurgery and rehab medicine IV Fluid Analgesics Medication: dilaudid, valium, ceftriaxone, vancomycin, metronidazole Website Project Manager patient/family Re-evaluate patient Check response to treatment Planned Disposition: inpatient admission Antibiotics including ceftriaxone, vancomycin, and metronidazole were started immediately to cover for meningitis and epidural abscess and pt was put on droplet precautions. Labs show WBC 11.3, Hgb 10.4, otherwise unremarkable. MRI thoracic spine shows a large 4p13u04 cm pseudomeningocoele with direct communication to the [...] Manfred Blair - 04/29/2010 3:54 PM CDT [facility] Emergency Department Visit Note Chief Complaint: HEADACHE--ED Hx of thoracic ependymoma S/P resection in [id number] and radiation therapy s/p cyber knife s/p [...] grossly without deficit. Medical Decision Making: Dictation: [id number] Condition on disposition: Stable Manfred Blair MD [...] t-5) on April 11. Was seen in [place] last pm and had CT, IV's and [...] are i n the results section. CYTOLOGY, NON-SHREDDING MACHINE KNIFE CHANGER Routine 05/09/2010 1:00 PM Resu lts for [...] CDT) athologist Signature Coag Hold Held in [facility] Coag Rack for 8 hours Specimen Anatomical Collection Method Collection Time Receive d Time (Source) Location / / Volume Laterality 05/13/2010 6:40 AM 0 7:05 CDT AM CDT Maurice Baron MD LAB_1 Performing Organization Address City/[facility]/ZIP Code Phon e Number [address] [address] [place], [place] [phone] (ABNORMAL) INR/PROTIME (05/13/2010 6:40 AM CDT) athologist Signature Protime 17.0 (H) 12.0 - 14.5 REGIONS sec INR 1.4 [facility] Specimen Anatomical Collection Method Collection Time Receive d Time (Source) Location / / Volume Laterality 05/13/2010 6:40 AM 0 7:05 CDT AM CDT Maurice Baron MD LAB_1 Performing Organization Address [facility] Phon e Number [address] [address] [place], [place] [phone] GLUCOSE, WHOLE BLOOD POC (05/12/2010 9:26 PM CDT) athologist Signature Glucose, Whole 138 70 - 180 REGIONS Blood mg/dl Comment: Point of Care Testing RN Notified Specimen Anatomical Collection Method Collection Time Receive d Time (Source) Location / / Volume Laterality 05/12/2010 9:26 PM 0 9:32 CDT PM CDT Maurice Baron MD LAB_1 Performing Organization Address City/[facility]/ZIP [facility] Phon e Number [address] [address] [place], [place] [phone] GLUCOSE, WHOLE BLOOD POC (05/12/2010 5:32 PM CDT) P athologist Signature Glucose, Whole 142 70 - 180 REGIONS Blood mg/dl Comment: Point of Care Testing RN Notified Specimen Anatomical Collection Method Collection Time Receive d Time (Source) Location / / Volume Laterality 05/12/2010 5:32 PM 0 5:38 CDT PM CDT Maurice Baron MD LAB_1 Performing Organization Address [facility] Phon e Number [address] [address] [place], [place] [phone] GLUCOSE, WHOLE BLOOD POC (05/12/2010 12:16 PM CDT) athologist Signature Glucose, Whole 101 70 - 180 REGIONS Blood mg/dl Comment: Point of Care Testing RN Notified Specimen Anatomical Collection Method Collection Time Receive d Time (Source) Location / / Volume Laterality 05/12/2010 12:16 05/12/2010 PM CDT 12:34 PM CDT Maruice Baron MD LAB_1 Performing Organization Address City/[facility] Phon e Number [address] [address] [place], [place] [phone] GLUCOSE, WHOLE BLOOD POC (05/12/2010 8:17 AM CDT) athologist Signature Glucose, Whole 129 70 - 180 REGIONS Blood mg/dl Comment: Point of Care Testing RN Notified Specimen Anatomical Collection Method Collection Time Receive d Time (Source) Location / / Volume Laterality 05/12/2010 8:17 AM 0 CDT 11:58 AM CDT Maurice Baron MD LAB_1 Performing Organization Address City/[facility] Phon e Number [address] [address] [place], [place] [phone] GLUCOSE, WHOLE BLOOD POC (05/11/2010 6:53 PM CDT) athologist Signature Glucose, Whole 119 70 - 180 REGIONS Blood mg/dl Comment: Point of Care Testing RN Notified Specimen Anatomical Collection Method Collection Time Receive d Time (Source) Location / / Volume Laterality 05/11/2010 6:53 PM 07/01/201 0 6:56 CDT PM CDT Maurice Baron MD LAB_1 Performing Organization Address [facility] Phon e Number [address] [address] [place], [place] [phone] GLUCOSE, WHOLE BLOOD POC (05/11/2010 12:03 PM CDT) P athologist Signature Glucose, Whole 133 70 - 180 REGIONS Blood mg/dl Comment: Point of Care Testing RN Notified Specimen Anatomical Collection Method Collection Time Receive d Time (Source) Location / / Volume Laterality 05/11/2010 12:03 05/11/2010 2:02 PM CDT PM CDT Maurice Baron MD LAB_1 Performing Organization Address [facility] Phon e Number [address] [address] [place], [place] [phone] URINE CULTURE (05/11/2010 10:44 AM CDT) [facility] Method Time Signature Specimen Urine REGIONS Description Special Unspecified REGIONS Requests Culture No Growth After REGIONS 1 Day Report Status Final REGIONS 05/12/2010 Specimen Anatomical Collection Method Collection Time Receive d Time (Source) Location / / Volume Laterality 05/11/2010 10:44 05/11/2010 1:09 AM CDT PM CDT Maurice Baron MD LAB_1 Performing Organization Address [facility] Phon e Number [address] [address] [place], [place] [phone] (ABNORMAL) UA CONDITIONAL UC (05/11/2010 10:44 AM CDT) [employer] Method Time Signature Urine Color None REGIONS Urine Clarity Clear REGIONS Specific 1.004 (L) 1.005 - REGIONS [place],Ur 1.03 pH, Urine 6.0 4.5 - 8.0 [...] Kiko Powell MD LAB_1 Performing Organization Address [facility] Phon e Number [address] [address] [place], [place] [phone] GLUCOSE, WHOLE BLOOD POC (05/11/2010 8:09 AM CDT) athologist Signature Glucose, Whole 111 70 - 180 REGIONS Blood mg/dl Comment: Point of Care Testing RN Notified Specimen Anatomical Collection Method Collection Time Receive d Time (Source) Location / / Volume Laterality 05/11/2010 8:09 AM 0 2:01 CDT PM CDT Maurice Baron MD LAB_1 Performing Organization Address City/[facility] Phon e Number [address] [address] [place], [place] [phone] (ABNORMAL) HEMOGRAM/PLTS/DIFF (05/11/2010 6:00 AM CDT) Analysis [...] Lymph 20 17 - 43 % REGIONS [place] 8 4 - 12 % REGIONS Eos 1 0 - 8 % REGIONS Baso 0 0 - 1 % REGIONS Neutrophil 4.7 1.8 - 7.7 REGIONS Absolute k/ul Lymph Absolute 1.3 1.0 - 4.8 REGIONS k/ul [place] Absolute 0.5 0.1 - 0.7 REGIONS k/ul Eos Absolute 0.1 0.0 - 0.5 REGIONS k/ul Baso Absolute 0.0 0.0 - 0.2 REGIONS k/ul Specimen Anatomical Collection Method Collection Time Receive d Time (Source) Location / / Volume Laterality 05/11/2010 6:00 AM 0 6:53 CDT AM CDT Kiko Powell MD LAB_1 Performing Organization Address [facility] Phon e Number [address] [address] [place], [place] [phone] GLUCOSE, WHOLE BLOOD POC (05/10/2010 9:32 PM CDT) P athologist Signature Glucose, Whole 129 70 - 180 REGIONS Blood mg/dl Comment: Point of Care Testing RN Notified Specimen Anatomical Collection Method Collection Time Receive d Time (Source) Location / / Volume Laterality 05/10/2010 9:32 PM 0 9:37 CDT PM CDT Maurice Baron MD LAB_1 Performing Organization Address City/[facility] Phon e Number [address] [address] [place], [place] [phone] GLUCOSE, WHOLE BLOOD POC (05/10/2010 5:16 PM CDT) P athologist Signature Glucose, Whole 118 70 - 180 REGIONS Blood mg/dl Comment: Point of Care Testing RN Notified Specimen Anatomical Collection Method Collection Time Receive d Time (Source) Location / / Volume Laterality 05/10/2010 5:16 PM 0 5:21 CDT PM CDT Maurice Baron MD LAB_1 Performing Organization Address City/[facility] Phon e Number [address] [address] [place], [place] [phone] GLUCOSE, WHOLE BLOOD POC (05/10/2010 12:10 PM CDT) athologist Signature Glucose, Whole 103 70 - 180 REGIONS Blood mg/dl Comment: Point of Care Testing RN Notified Specimen Anatomical Collection Method Collection Time Receive d Time (Source) Location / / Volume Laterality 05/10/2010 12:10 05/10/2010 PM CDT 12:24 PM CDT Maurice Baron MD LAB_1 Performing Organization Address City/[facility] Phon e Number [address] [address] [place], [place] [phone] (ABNORMAL) UA WITH MICROSCOPIC (05/10/2010 11:30 AM CDT) [facility] Signature Urine Color Yellow REGIONS Urine Clarity Hazy REGIONS Specific 1.013 1.005 - REGIONS [place],Ur 1.03 pH, Urine 5.5 4.5 - 8.0 [...] Kiko Powell MD LAB_1 Performing Organization Address [facility] Phon e Number [address] [address] [place], [place] [phone] GLUCOSE, WHOLE BLOOD POC (05/10/2010 7:42 AM CDT) athologist Signature Glucose, Whole 107 70 - 180 REGIONS Blood mg/dl Comment: Point of Care Testing RN Notified Specimen Anatomical Collection Method Collection Time Receive d Time (Source) Location / / Volume Laterality 05/10/2010 7:42 AM 0 8:12 CDT AM CDT Maurice Baron MD LAB_1 Performing Organization Address [facility] Phon e Number [address] [address] [place], [place] [phone] (ABNORMAL) BASIC METABOLIC PANEL (05/10/2010 6:26 AM [...] Jayna Ambriz MD LAB_1 Performing Organization Address City/[facility] Phon e Number [address] [address] [place], [place] [phone] GLUCOSE, WHOLE BLOOD POC (05/09/2010 9:36 PM CDT) athologist Signature Glucose, Whole 108 70 - 180 REGIONS Blood mg/dl Comment: Point of Care Testing RN Notified Specimen Anatomical Collection Method Collection Time Receive d Time (Source) Location / / Volume Laterality 05/09/2010 9:36 PM 0 9:39 CDT PM CDT Maurice Baron MD LAB_1 Performing Organization Address [facility] Phon e Number [address] [address] [place], [place] [phone] GLUCOSE, WHOLE BLOOD POC (05/09/2010 5:36 PM CDT) P athologist Signature Glucose, Whole 103 70 - 180 REGIONS Blood mg/dl Comment: Point of Care Testing RN Notified Specimen Anatomical Collection Method Collection Time Receive d Time (Source) Location / / Volume Laterality 05/09/2010 5:36 PM 0 9:39 CDT PM CDT Maurice Baron MD LAB_1 Performing Organization Address [facility] Phon e Number [address] [address] [place], [place] [phone] FUNGUS CULTURE,MISCELLANEOUS (05/09/2010 2:04 PM CDT) Component Value Ref Test Analysis Performed At [facility] gist Range Method Time Signature Specimen Aspirate [...] Maurice Baron MD LAB_1 Performing Organization Address [facility] Phon e Number [address] [address] [place], [place] [phone] ANAEROBIC CULTURE (05/09/2010 2:04 PM CDT) Component Value Ref Test Analysis Performed At Patholo gist Range Method Time Signature Specimen Fluid REGIONS Description SUBCUTANEOUS Back Special Unspecified REGIONS Requests Aerobic Cult [id number] REGIONS Number Culture No Anaerobes REGIONS Isolated Report Status Final 05/17/2010 REGIONS Specimen Anatomical Collection Method Collection Time Receive d Time (Source) Location / / Volume Laterality 05/09/2010 2:04 PM 0 2:21 CDT PM CDT Maurice Baron MD LAB_1 Performing Organization Address City/[facility]/ZIP Code Phon e Number [address] [address] [place], [place] [phone] AEROBIC CULTURE (05/09/2010 2:04 PM CDT) Component Value Ref Test Analysis Performed At [facility] Range Method Time Signature Specimen Fluid REGIONS [...] Maurice Baron MD LAB_1 Performing Organization Address [facility] Phon e Number [address] [address] [place], [place] [phone] (ABNORMAL) CSF TOTAL PROTEIN (05/09/2010 1:00 PM CDT) [facility] Method Time Signature Source Cerebrospinal REGIONS Fluid Total 247 (H) 12 - 60 REGIONS Protein, CSF mg/dl Comment: The use if this assay to monitor or diag nose patients has not been approved for this specimen type by the FDA or deaf/hard of hearing specialist of this assay. Specimen Anatomical Collection Method Collection Time Receive d Time (Source) Location / / Volume Laterality 05/09/2010 1:00 PM 0 3:14 CDT PM CDT Maurice Baron MD LAB_1 Performing Organization Address City/[facility] Phon e Number [address] [address] [place], [place] [phone] (ABNORMAL) CSF, GLUCOSE (05/09/2010 1:00 PM CDT) [facility] Method Time Signature Source Cerebrospinal REGIONS Fluid Glucose, CSF 34 (L) 40 - 70 REGIONS mg/dl Specimen Anatomical Collection Method Collection Time Receive d Time (Source) Location / / Volume Laterality 05/09/2010 1:00 PM 0 3:14 CDT PM CDT Maurice Baron MD LAB_1 Performing Organization Address [facility] Phon e Number [address] [address] [place], [place] [phone] (ABNORMAL) FIRST CSF CELL COUNT & DIFF (05/09/2010 1:00 PM CDT) Component Value Ref Test Analysis Performed At [facility] Range Method Time Signature Source Cerebrospinal REGIONS [...] Maurice Baron MD LAB_1 Performing Organization Address [facility] Phon e Number [address] [address] [place], [place] [phone] CYTOLOGY, NON-SHREDDING MACHINE KNIFE CHANGER (FLUIDS, URINE, SPUTUM) (05/09/2010 1:00 PM CDT) [facility] Method Time Signature Cytology, (NOTE) REGIONS Body Fluid Non-Maintainer [employer] Cytology Report Patient Name: JIE CULLEN Taken: 05/09/2010 Received: 05/09/2010 Reported: 05/09/2010 Physician(s): MAURICE BARON ([id number]) ? Final Cytologic Diagnosis Cerebrospinal Fluid: ?Satisfactory for evaluation. ?NEGATIVE FOR MALIGNANCY ?Inflammation [facility]/05/09/2010 Electronically Signed Out By ? Swati Sanchez MD ([id number]) ? Procedures/Addenda Gross Description 0.5 mls of clear, colorless fluid received. 0.5 mls processe d to make 2 Perry-stained, single cytospin slides. Specimen Anatomical Collection Method Collection Time Receive d Time (Source) Location / / Volume Laterality 05/09/2010 1:00 PM 0 3:00 CDT PM CDT Maurice Baron MD LAB_1 Performing Organization Address [facility] Code Phon e Number [address] [address] [place], [place] [phone] FUNGUS CULTURE,MISCELLANEOUS (05/09/2010 1:00 PM CDT) Component [...] Maurice Baron MD LAB_1 Performing Organization Address [facility]/[place] [facility] Phon e Number [address] [address] [place], [place] [phone] ANAEROBIC CULTURE (05/09/2010 1:00 PM CDT) Component Value Ref Test Analysis Performed At [facility] CardLab Range Method Time Signature Specimen Cerebrospinal REGIONS [...] Address City/[facility]/ZIP [facility] Phon e Number [address] [address] [place], [place] [phone] SPINAL FLUID CULTURE & SMEAR (05/09/2010 1:00 PM CDT) Component Value Ref Test Analysis Performed At [facility] gist Range Method Time Signature Specimen Cerebrospinal [...] Address City/[facility]/ZIP [facility] Phon e Number [address] [address] [place], [place] [phone] FUNGUS CULTURE,MISCELLANEOUS (05/09/2010 1:00 PM CDT) [facility] Method Time Signature Specimen Aspirate REGIONS Description [...] Maurice Baron MD LAB_1 Performing Organization Address [facility]/ZIP Code Phon e Number [address] [address] [place], [place] [phone] ANAEROBIC CULTURE (05/09/2010 1:00 PM CDT) [facility] Method Time Signature Specimen Fluid REGIONS Description [...] Address City/[facility]/[place]IP [facility] Phon e Number [address] [address] [place], [place] [phone] AEROBIC CULTURE (05/09/2010 1:00 PM CDT) [facility] Method Time Signature Specimen Fluid REGIONS Description [...] Maurice Baron MD LAB_1 Performing Organization Address [facility] Phon e Number [address] [address] [place], [place] [phone] APTT (ACTIVATED PARTIAL THROMBOPLASTIN TIME (05/09/2010 7:05 AM CDT) athologist Signature PTT 28.6 24.0 - 37.0 REGIONS sec Specimen Anatomical Collection Method Collection Time Receive d Time (Source) Location / / Volume Laterality 05/09/2010 7:05 AM 0 7:09 CDT AM CDT Maurice Baron MD LAB_1 Performing Organization Address [facility] Phon e Number [address] [address] [place], [place] [phone] ABO Rh & Antibody Screen (Type & Screen) (05/09/2010 4:00 AM CDT) [facility] gist Method Time Signature Crossmatch 05/12/2010 REGIONS Expires ABO/RH(D) A NEGATIVE REGIONS Antibody NEGATIVE REGIONS Screen Specimen Anatomical Collection Method Collection Time Receive d Time (Source) Location / / Volume Laterality 05/09/2010 4:00 AM 0 4:01 CDT AM CDT Maurice Baron MD LAB_1 Performing Organization Address [facility] Phon e Number [address] [address] [place], [place] [phone] (ABNORMAL) APTT (ACTIVATED PARTIAL THROMBOPLASTIN TIME (05/09/2010 3:59 AM CDT) P athologist Signature PTT >180.0 (HH) 24.0 - 37.0 REGIONS sec Comment: Critical value checked, given to and sam d back by Swathi GARRETT RN [id number] Specimen Anatomical Collection Method Collection Time Receive d Time (Source) Location / / Volume Laterality 05/09/2010 3:59 AM 0 4:00 CDT AM CDT Maurice Baron MD LAB_1 Performing Organization Address [facility] Phon e Number [address] [address] [place], [place] [phone] (ABNORMAL) INR/PROTIME (05/09/2010 3:59 AM CDT) P athologist Signature Protime 17.7 (H) 12.0 - 14.5 REGIONS sec INR 1.4 REGIONS Specimen Anatomical Collection Method Collection Time Receive d Time (Source) Location / / Volume Laterality 05/09/2010 3:59 AM 0 4:00 CDT AM CDT Maurice Baron MD LAB_1 Performing Organization Address [facility] Phon e Number [address] [address] [place], [place] [phone] GOLD HOLD TUBE (OR RED/RIGGS) (05/08/2010 7:00 AM CDT) [facility] gist Method Time Signature Gold Hold Held in REGIONS Tube Chemistry sample rack for 7 days Specimen Anatomical Collection Method Collection Time Receive d Time (Source) Location / / Volume Laterality 05/08/2010 7:00 AM 0 7:13 CDT AM CDT Maurice Baron MD LAB_1 Performing Organization Address [facility] Phon e Number [address] [address] [place], [place] [phone] SODIUM, URINE RANDOM (05/08/2010 7:00 AM CDT) P athologist Signature Sodium, Urine 143 mmol/L REGIONS Random Specimen Anatomical Collection Method Collection Time Receive d Time (Source) Location / / Volume Laterality Urine specimen 05/08/2010 7:00 AM 010 7:16 (specimen) CDT AM CDT Poonam Shafer MD LAB_1 Performing Organization Address [facility]/[place]IP [facility] Phon e Number [address] [address] [place], [place] [phone] OSMOLALITY, URINE (05/08/2010 7:00 AM CDT) athologist Signature Osmolality, 342 REGIONS Urine Specimen Anatomical Collection Method Collection Time Receive d Time (Source) Location / / Volume Laterality Urine specimen 05/08/2010 7:00 AM 010 7:15 (specimen) CDT AM CDT Poonam Shafer MD LAB_1 Performing Organization Address [facility] Phon e Number [address] [address] [place], [place] [phone] OSMOLALITY (05/08/2010 7:00 AM CDT) athologist Signature Osmolality 293 280 - 300 REGIONS mosm/kg Specimen Anatomical Collection Method Collection Time Receive d Time (Source) Location / / Volume Laterality 05/08/2010 7:00 AM 201 0 7:11 CDT AM CDT Maurice Baron MD LAB_1 Performing Organization Address [facility] Phon e Number [address] [address] [place], [place] [phone] (ABNORMAL) BASIC METABOLIC PANEL (05/08/2010 7:00 AM [...] Maurice Baron MD LAB_1 Performing Organization Address [facility]/[place]IP [facility] Phon e Number [address] [address] [place], [place] [phone] (ABNORMAL) INR/PROTIME (05/08/2010 7:00 AM CDT) P athologist Signature Protime 18.2 (H) 12.0 - 14.5 REGIONS sec INR 1.5 REGIONS Specimen Anatomical Collection Method Collection Time Receive d Time (Source) Location / / Volume Laterality 05/08/2010 7:00 AM 0 7:11 CDT AM CDT Maurice Baron MD LAB_1 Performing Organization Address [facility] Phon e Number [address] [address] [place], [place] [phone] GLUCOSE, WHOLE BLOOD POC (2010 9:24 PM CDT) P athologist Signature Glucose, Whole 122 70 - 180 REGIONS Blood mg/dl Comment: Point of Care Testing RN Notified Specimen Anatomical Collection Method Collection Time Receive d Time (Source) Location / / Volume Laterality 2010 9:24 PM 0 9:27 CDT PM CDT Maurice Baron MD LAB_1 Performing Organization Address [facility] Phon e Number [address] [address] [place], [place] [phone] GLUCOSE, WHOLE BLOOD POC (2010 5:18 PM CDT) P athologist Signature Glucose, Whole 149 70 - 180 REGIONS Blood mg/dl Comment: Point of Care Testing RN Notified Specimen Anatomical Collection Method Collection Time Receive d Time (Source) Location / / Volume Laterality 2010 5:18 PM 0 5:39 CDT PM CDT Maurice Baron MD LAB_1 Performing Organization Address [facility] Phon e Number [address] [address] [place], [place] [phone] GLUCOSE, WHOLE BLOOD POC (2010 12:08 PM [...] - [place]/ZIP Code Phon e Number [address] [address] [place], [place] [phone] GLUCOSE, WHOLE BLOOD POC (2010 7:27 AM CDT) P athologist Signature Glucose, Whole 107 70 - 180 REGIONS Blood mg/dl Comment: Point of Care Testing RN Notified Specimen Anatomical Collection Method Collection Time Receive d Time (Source) Location / / Volume Laterality 2010 7:27 AM 0 CDT 12:15 PM CDT Maurice Baron MD LAB_1 Performing Organization Address City/[facility] Phon e Number [address] [address] [place], [place] [phone] PHOSPHORUS (2010 6:05 AM CDT) P athologist Signature Phosphorus 3.7 2.5 - 4.5 REGIONS mg/dl Specimen Anatomical Collection Method Collection Time Receive d Time (Source) Location / / Volume Laterality 2010 6:05 AM 0 6:43 CDT AM CDT Maurice Baron MD LAB_1 Performing Organization Address City/[facility]/ZIP Code Phon e Number [address] [address] [place], [place] [phone] MAGNESIUM (2010 6:05 AM CDT) athologist Signature Magnesium 2.1 1.6 - 2.3 REGIONS mg/dl Specimen Anatomical Collection Method Collection Time Receive d Time (Source) Location / / Volume Laterality 2010 6:05 AM 0 6:43 CDT AM CDT Maurice Baron MD LAB_1 Performing Organization Address [facility]/ZIP [facility] Phon e Number [address] [address] [place], [place] [phone] (ABNORMAL) INR/PROTIME (2010 6:05 AM CDT) athologist Signature Protime 20.2 (H) 12.0 - 14.5 REGIONS sec INR 1.7 REGIONS Specimen Anatomical Collection Method Collection Time Receive d Time (Source) Location / / Volume Laterality 2010 6:05 AM 0 6:43 CDT AM CDT Maurice Baron MD LAB_1 Performing Organization Address [facility]/[place]IP [facility] Phon e Number [address] [address] [place], [place] [phone] (ABNORMAL) HEMOGRAM/PLTS (05/06/2010 11:00 PM CDT) P [...] Maurice Baron MD LAB_1 Performing Organization Address [facility] Phon e Number [address] [address] [place], [place] [phone] (ABNORMAL) BASIC METABOLIC PANEL (05/06/2010 11:00 PM [...] Maurice Baron MD LAB_1 Performing Organization Address [facility] Phon e Number [address] [address] [place], [place] [phone] GLUCOSE, WHOLE BLOOD POC (05/06/2010 9:06 PM CDT) athologist Signature Glucose, Whole 130 70 - 180 REGIONS Blood mg/dl Comment: Point of Care Testing RN Notified Specimen Anatomical Collection Method Collection Time Receive d Time (Source) Location / / Volume Laterality 05/06/2010 9:06 PM 0 9:10 CDT PM CDT Maurice Baron MD LAB_1 Performing Organization Address City/State/ZIP Code Phon e Number [address] [address] [place], [place] [phone] GLUCOSE, WHOLE BLOOD POC (05/06/2010 5:27 PM [...] - [place]/ZIP Code Phon e Number [address] [address] [place], [place] [phone] GLUCOSE, WHOLE BLOOD POC (05/06/2010 11:56 AM [...] - [place]/ZIP Code Phon e Number [address] [address] [place], [place] [phone] GLUCOSE, WHOLE BLOOD POC (05/06/2010 7:30 AM CDT) P athologist Signature Glucose, Whole 108 70 - 180 REGIONS Blood mg/dl Comment: Point of Care Testing RN Notified Specimen Anatomical Collection Method Collection Time Receive d Time (Source) Location / / Volume Laterality 05/06/2010 7:30 AM 0 8:09 CDT AM CDT Maurice Baron MD LAB_1 Performing Organization Address City/State/ZIP Code Phon e Number [address] [address] [place], [place] [phone] (ABNORMAL) INR/PROTIME (05/06/2010 5:55 AM CDT) athologist Signature Protime 19.9 (H) 12.0 - 14.5 REGIONS sec INR 1.6 REGIONS Specimen Anatomical Collection Method Collection Time Receive d Time (Source) Location / / Volume Laterality 05/06/2010 5:55 AM 0 6:00 CDT AM CDT Maurice Baron MD LAB_1 Performing Organization Address City/State/ZIP [facility] Phon e Number [address] [address] [place], [place] [phone] GLUCOSE, WHOLE BLOOD POC (05/05/2010 8:53 PM [...] - [place]/ZIP Code Phon e Number [address] [address] [place], [place] [phone] GLUCOSE, WHOLE BLOOD POC (05/05/2010 5:19 PM [...] - [place]/ZIP Code Phon e Number [address] [address] [place], [place] [phone] GLUCOSE, WHOLE BLOOD POC (05/05/2010 12:10 PM CDT) athologist Signature Glucose, Whole 137 70 - 180 REGIONS Blood mg/dl Comment: Point of Care Testing RN Notified Specimen Anatomical Collection Method Collection Time Receive d Time (Source) Location / / Volume Laterality 05/05/2010 12:10 05/05/2010 PM CDT 12:22 PM CDT Maurice Baron MD LAB_1 Performing Organization Address [facility] Phon e Number [address] [address] [place], [place] [phone] GLUCOSE, WHOLE BLOOD POC (05/05/2010 7:43 AM CDT) athologist Signature Glucose, Whole 108 70 - 180 REGIONS Blood mg/dl Comment: Point of Care Testing RN Notified Specimen Anatomical Collection Method Collection Time Receive d Time (Source) Location / / Volume Laterality 05/05/2010 7:43 AM 0 8:03 CDT AM CDT Maurice Baron MD LAB_1 Performing Organization Address City/[facility] Code Phon e Number [address] [address] [place], [place] [phone] (ABNORMAL) INR/PROTIME (05/05/2010 6:15 AM CDT) athologist Signature Protime 21.4 (H) 12.0 - 14.5 REGIONS sec INR 1.8 REGIONS Specimen Anatomical Collection Method Collection Time Receive d Time (Source) Location / / Volume Laterality 05/05/2010 6:15 AM 0 6:21 CDT AM CDT Maurice Baron MD LAB_1 Performing Organization Address City/[facility] Phon e Number [address] [address] [place], [place] [phone] VANCOMYCIN LEVEL (05/05/2010 6:15 AM CDT) athologist Signature Vancomycin 17.1 mcg/ml REGIONS Comment: Trough range: 10.0-20.0 Specimen Anatomical Collection Method Collection Time Receive d Time (Source) Location / / Volume Laterality Pre-infusion 05/05/2010 6:15 AM 0 6:21 CDT AM CDT Maurice Baron MD LAB_1 Performing Organization Address City/[facility] Phon e Number [address] [address] [place], [place] [phone] (ABNORMAL) INR/PROTIME (05/04/2010 4:00 AM CDT) athologist Signature Protime 22.9 (H) 12.0 - 14.5 REGIONS sec INR 1.9 REGIONS Specimen Anatomical Collection Method Collection Time Receive d Time (Source) Location / / Volume Laterality 05/04/2010 4:00 AM 0 4:24 CDT AM CDT aMurice Baron MD LAB_1 Performing Organization Address City/[facility] Phon e Number [address] [address] [place], [place] [phone] CREATININE / GFR (05/04/2010 4:00 AM CDT) [...] Organization Address City/[facility] Phon e Number [address] [address] [place], [place] [phone] GLUCOSE, WHOLE BLOOD POC (05/03/2010 9:35 PM CDT) athologist Signature Glucose, Whole 111 70 - 180 REGIONS Blood mg/dl Comment: Point of Care Testing RN Notified Specimen Anatomical Collection Method Collection Time Receive d Time (Source) Location / / Volume Laterality 05/03/2010 9:35 PM 0 9:56 CDT PM CDT Maurice Baron MD LAB_1 Performing Organization Address [facility]/[place]IP [facility] Phon e Number [address] [address] [place], [place] [phone] VANCOMYCIN LEVEL (05/03/2010 5:45 PM CDT) P athologist Signature Vancomycin 13.0 mcg/ml [facility] Comment: Trough range: 10.0-20.0 Specimen Anatomical Collection Method Collection Time Receive d Time (Source) Location / / Volume Laterality Pre-infusion 05/03/2010 5:45 PM 0 5:47 CDT PM CDT Maurice Baron MD LAB_1 Performing Organization Address [facility] Phon e Number [address] [address] [place], [place] [phone] GLUCOSE, WHOLE BLOOD POC (05/03/2010 5:21 PM CDT) athologist Signature Glucose, Whole 119 70 - 180 [facility] Blood mg/dl Comment: Point of Care Testing RN Notified Specimen Anatomical Collection Method Collection Time Receive d Time (Source) Location / / Volume Laterality 05/03/2010 5:21 PM 0 9:56 CDT PM CDT Maurice Baron MD LAB_1 Performing Organization Address [facility] Phon e Number [address] [address] [place], [place] [phone] URINE CULTURE (05/03/2010 2:30 PM CDT) Component Value Ref Test Analysis Performed At [facility] gist Range Method Time Signature Specimen Urine REG[facility] Description Cath/Bladder Special Unspecified REG[facility] Requests Culture [id number] col/ml [facility] Yeast No Further Identification Report Status Final 05/04/2010 [facility] Specimen Anatomical Collection Method Collection Time Receive d Time (Source) Location / / Volume Laterality Urine specimen 05/03/2010 2:30 PM 010 4:00 (specimen) CDT PM CDT Zina Garcia MD LAB_1 Performing Organization Address [facility] Phon e Number [address] [address] [place], [place] [phone] (ABNORMAL) UA WITH MICROSCOPIC (05/03/2010 2:30 PM CDT) [facility] gist Method Time Signature Urine Color Yellow [facility] Urine Clarity Clear [facility] Specific 1.012 1.005 - REGIONS [place],Ur 1.03 pH, Urine 8.0 4.5 - 8.0 [...] Zina Garcia MD LAB_1 Performing Organization Address [facility] Phon e Number [address] [address] [place], [place] [phone] [place] VENOUS DUPLEX LOWER EXTREMITY BILATERAL (05/03/2010 [...] Address City/State/ZIP Code Phon e Number [address] [address] [place], [place] [phone] VANCOMYCIN LEVEL (05/01/2010 7:40 PM CDT) P athologist Signature Vancomycin 11.1 mcg/ml [facility] Comment: Trough range: 10.0-20.0 Specimen Anatomical Collection Method Collection Time Receive d Time (Source) Location / / Volume Laterality Pre-infusion 05/01/2010 7:40 PM 0 7:47 CDT PM CDT Trevin Salgado MD LAB_1 Performing Organization Address City/State/ZIP Code Phon e Number [address] [address] [place], [place] [phone] [place] FNA SUPERFICIAL (05/01/2010 2:50 PM CDT) [...] anesthetic. Using real-time ultrasound guidance, a 19-gauge Eqvilibriaeh needle was advanced into the paraspinal complex [...] anesthetic. Using real-time ultrasound guidance, a 19-gauge Eqvilibriaeh needle was advanced into the paraspinal complex [...] Address City/State/ZIP Code Phon e Number [address] [address] [place], [place] [phone] ANAEROBIC CULTURE (05/01/2010 2:35 PM CDT) [facility] Method Time Signature Specimen Drainage [facility] Description SUPERFICIAL BACK SEROMA Special Received in [facility] Requests Anaport Vial Aerobic Cult [id number] REG[facility] Number Culture No Anaerobes [facility] Isolated Report Status Final [facility] 05/08/2010 Specimen Anatomical Collection Method Collection Time Receive d Time (Source) Location / / Volume Laterality 05/01/2010 2:35 PM 0 3:43 CDT PM CDT Birgit ASKEW LAB_1 Performing Organization Address City/State/ZIP Code Phon e Number [address] [address] [place], [place] [phone] XR PORTABLE CHEST 1 VIEW to verify [...] Yomi Miller MD LAB_1 Performing Organization Address [facility]/[place]IP [facility] [place] Number [address] [address] [place], [place] [phone] (ABNORMAL) INR/PROTIME (05/01/2010 6:15 AM CDT) P athologist Signature Protime 28.5 (H) 12.0 - 14.5 [facility] sec INR 2.5 [facility] Specimen Anatomical Collection Method Collection Time Receive d Time (Source) Location / / Volume Laterality 05/01/2010 6:15 AM 0 6:19 CDT AM CDT Yomi Miller MD LAB_1 Performing Organization Address [facility] Phon e Number [address] [address] [place], [place] [phone] [place] LUMBAR PUNCTURE (FOR CSF) (04/30/2010 11:34 [...] IMPRESSION: Successful lumbar puncture. Yomi Miller MD [facility] ANAEROBIC CULTURE (04/30/2010 11:00 AM CDT) Component Value Ref Test Analysis Performed At [facility] CardLab Range Method Time Signature Specimen Cerebrospinal [facility] Description Fluid Special Unspecified [facility] Requests Aerobic Cult [id number] REG[facility] Number Culture No Anaerobes [facility] Isolated Report Status Final 05/08/2010 [facility] Specimen Anatomical Collection Method Collection Time Receive d Time (Source) Location / / Volume Laterality 04/30/2010 11:00 04/30/2010 AM CDT 12:15 PM CDT Yomi Miller MD LAB_1 Performing Organization Address [facility] Phon e Number [address] [address] [place], [place] [phone] (ABNORMAL) FIRST CSF CELL COUNT & DIFF (04/30/2010 11:00 AM CDT) [facility] Card[facility] Method Time Signature Source OTHER [facility] (SPECIFY) [...] [place]/ZIP Code Phon e Number [address] [address] [place], [place] [phone] (ABNORMAL) SPINAL FLUID CULTURE & SMEAR (04/30/2010 11:00 AM CDT) Component Value Ref Test Analysis Performed At [facility] Range Method Time Signature Specimen Cerebrospinal REGIONS [...] Zelalem Dick MD LAB_1 Performing Organization Address [facility] Phon e Number [address] [address] [place], [place] [phone] (ABNORMAL) CSF TOTAL PROTEIN (04/30/2010 11:00 AM CDT) [facility] Method Time Signature Source Cerebrospinal [facility] Fluid Total 804 (H) 12 - 60 [facility] Protein, CSF mg/dl Comment: The use if this assay to monitor or diag nose patients has not been approved for this specimen type by the FDA or deaf/hard of hearing specialist of this assay. Specimen (Source) Anatomical Collection Method Collection Time Re ceived Time Location / / Volume Laterality Cerebrospinal fluid 04/30/2010 11:00 04/12 specimen (specimen) AM CDT 11:57 AM CDT Zelalem Dick MD LAB_1 Performing Organization Address [facility] Phon e Number [address] [address] [place], [place] [phone] (ABNORMAL) CSF, GLUCOSE (04/30/2010 11:00 AM CDT) [facility] Method Time Signature Source Cerebrospinal [facility] Fluid Glucose, CSF 32 (L) 40 - 70 [facility] mg/dl Specimen (Source) Anatomical Collection Method Collection Time Re ceived Time Location / / Volume Laterality Cerebrospinal fluid 04/30/2010 11:00 04/12 specimen (specimen) AM CDT 11:57 AM CDT Zelalem Dick MD LAB_1 Performing Organization Address [facility] Phon e Number [address] [address] [place], [place] [phone] Phosphorus (04/30/2010 6:19 AM CDT) athologist Signature Phosphorus 3.6 2.5 - 4.5 [facility] mg/dl Specimen Anatomical Collection Method Collection Time Receive d Time (Source) Location / / Volume Laterality 04/30/2010 6:19 AM 0 6:25 CDT AM CDT Yomi Miller MD LAB_1 Performing Organization Address [facility] Phon e Number [address] [address] [place], [place] [phone] Magnesium (04/30/2010 6:19 AM CDT) athologist Signature Magnesium 1.9 1.6 - 2.3 [facility] mg/dl Specimen Anatomical Collection Method Collection Time Receive d Time (Source) Location / / Volume Laterality 04/30/2010 6:19 AM 0 6:25 CDT AM CDT Yomi Miller MD LAB_1 Performing Organization Address [facility] Phon e Number [address] [address] [place], [place] [phone] (ABNORMAL) Basic Metabolic Panel (K, Na, CO2, [...] Yomi Miller MD LAB_1 Performing Organization Address [facility] Phon e Number [address] [address] [place], [place] [phone] (ABNORMAL) CBC, Platelets with Differential (04/30/2010 6:19 AM CDT) Analysis Performed At [facility] logist Time Signature WBC 8.9 [...] 13 (L) 17 - 43 % REG[facility] [place] 7 4 - 12 % [facility] Eos 0 0 - 8 % [facility] Baso 0 0 - 1 % [facility] Neutrophil 7.1 1.8 - 7.7 [facility] Absolute k/ul Lymph Absolute 1.1 1.0 - 4.8 REG[facility] k/ul [place] Absolute 0.6 0.1 - 0.7 REG[facility] k/ul Eos Absolute 0.0 0.0 - 0.5 REG[facility] k/ul Baso Absolute 0.0 0.0 - 0.2 [facility] k/ul Specimen Anatomical Collection Method Collection Time Receive d Time (Source) Location / / Volume Laterality 04/30/2010 6:19 AM 0 6:25 CDT AM CDT Yomi Miller MD LAB_1 Performing Organization Address City/State/ZIP Code Phon e Number [address] [address] [place], [place] [phone] MRSA ADMIT SCREEN (04/30/2010 1:45 AM CDT) Component Value Ref Test Analysis Performed At [facility] gist Range Method Time Signature Specimen Nose [...] Address City/State/ZIP Code Phon e Number [address] [address] [place], [place] [phone] XR ABDOMEN AP/OBLIQUES/LATERAL (04/30/2010 12:24 AM CDT) [...] in place. Nonobstructive bowel gas pattern. Cristine Henosn MD RAD GD EKG IP (04/30/2010 12:00 AM CDT) Specimen (Source) Anatomical Location Collection Method / Collectio n Time Received Time / Laterality Volume 04/30/2010 Narrative This result has an attachment that is no t available. Transcriptions [facility], PROVIDER - 04/30/2010 12:00 AM CDT [facility], PROVIDER - 05/09/2010 12:00 AM CDT Provider [facility] EKG MR THORACIC SPINE WITH/WITHOUT CONTRAST (tell incoming freight clerk and call Radiologist) (04/29/2010 8:10 PM CDT) Anatomical Region Laterality Modality Spine, T-Spine, L-Spine, C-Spine, Skeletal Magnetic Resonance Specimen (Source) Anatomical Collection Method Collection Time Re ceived Time Location / / Volume Laterality 04/29/2010 8:10 PM CDT Narrative 04/29/2010 8:30 PM CDT [facility] THORACIC SPINE MRI ? [...] Procedure Note Julien Anna - 04/29/2010 [facility] THORACIC SPINE MRI 04/29/2010 [...] TUBE (OR RED/RIGGS) (04/29/2010 5:11 PM CDT) [facility] gist Method Time Signature Gold Hold Held in [facility] Tube Chemistry sample rack for 7 days Specimen Anatomical Collection Method Collection Time Receive d Time (Source) Location / / Volume Laterality 04/29/2010 5:11 PM 0 5:23 CDT PM CDT Julian Fragoso MD LAB_1 Performing Organization Address City/State/ZIP Code Phon e Number [address] [address] [place], [place] [phone] COAG HOLD (BLUE TUBE) (04/29/2010 5:11 PM CDT) athologist Signature Coag Hold Held in [facility] Coag Rack for 8 hours Specimen Anatomical Collection Method Collection Time Receive d Time (Source) Location / / Volume Laterality 04/29/2010 5:11 PM 0 5:23 CDT PM CDT Julian Fragoso MD LAB_1 Performing Organization Address [facility]/[place] [facility] Phon [place] Number [address] [address] [place], [place] [phone] BB HOLD TUBE ([facility] ONLY) (04/29/2010 5:11 PM CDT) [facility] gist Method Time Signature BB Hold Tube Blood Bank [facility] save tube expires in 3 days Specimen Anatomical Collection Method Collection Time Receive d Time (Source) Location / / Volume Laterality 04/29/2010 5:11 PM 0 5:23 CDT PM CDT Julian Fragoso MD LAB_1 Performing Organization Address City/[facility] Phon e Number [address] [address] [place], [place] [phone] BLOOD CULTURE SITE 1 (04/29/2010 5:11 PM CDT) [facility] gist Method Time Signature Specimen Blood REGIONS [...] Address City/[facility]/[place] [facility] Phon e Number [address] [address] [place], [place] [phone] (ABNORMAL) Basic Metabolic Panel (04/29/2010 5:11 PM [...] Zelalem Dick MD LAB_1 Performing Organization Address [facility] Phon e Number [address] [address] [place], [place] [phone] (ABNORMAL) HEMOGRAM/PLTS (04/29/2010 5:11 PM CDT) P [...] Zelalem Dick MD LAB_1 Performing Organization Address [facility] Phon e Number [address] [address] [place], [place] [phone] documented in this encounter Visit Diagnoses Diagnosis Pseudomeningocele - Primary Disorders of meninges, not elsewhere cla ssified Headache(784.0) Headache Fever Fever, unspecified Muscle spasticity Spasm of muscle Meningitis Meningitis, unspecified 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, unspecified site Other symptoms referable to back CAREPLAN: BACLOFEN Neurogenic bowel DVT (deep venous thrombosis) ([facility]) Acute venous embolism and thrombosis of unspecified deep vessels of lower extremity Neurogenic bladder Neurogenic bladder, NOS Polyuria Hypotension Hypotension, unspecified Probable Bacterial Meningitis Meningitis due to unspecified bacterium HTN (hypertension) ([facility]) Unspecified essential hypertension Initial Assessments - Mary Ann Dubose - 05/11/2010 4:05 PM CDT [facility] Physical Therapy Evaluation Patient Seen: bedside Diagnosis: Encounter Diagnoses Code Name Primary? 322.9P Meningitis Yes ??? 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 784.0 Headache ??? 780.60BQ Fever ??? 728.85T Muscle Spasticity ??? 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 20656 CAREPLAN: BACLOFEN ??? 564.81 Neurogenic Bowel ??? [...] Mary Ann Dubose, PT Department number is [phone] Pager number is [phone] --- End of Report --- Initial Assessments - Romelia Abebe - 05/05/2010 10:54 AM CDT [facility] Nutrition Initial Limited Assessment and Care Plan Reason for Assessing Patient: LOS Assessment: Patient was well nourished HR GENERALIST and expect intake to be adequate within [...] Abebe, DTAlejandro If you have questions, page [phone] Weekend pager: [phone] Nutrition Assessment Data Current Nutrition/Diet Order: Diet: [...] History: Diet History: Regular diet Intake/Digestive Problems HR GENERALIST: no problems noted Pertinent Biochemical Data, Medical [...] Aidee Villarreal - 04/30/2010 2:48 AM CDT [facility] Med-Surg / ICU / Rehab [...] help in care after hospitalization?: Heather Cullen [phone] 1-2 other people (first/last name) you consider [...] Screening: No functional screening criteria is applicable PSYCHOSOCIAL/SPIRITUAL/CHRISTIANITY/CULTURAL/ABUSE/CHEMICAL Suicide Health Inventory Do you currently have [...] 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, grief/loss, etc.): Yes - Restorative Art Embalmer Consult Recommended Cultural practices that affect patient care (per Best Care Questionnaire)?: No Abuse/Assault Screening: No evidence of assault or abuse Chemical Use Screening: No chemical use screening criteria applicable SAFETY Falls Risk Assessment Patient: All Other Patients (Click Here) Age: 0 History of Falls: 4 Cognition: 0 Elimination: 0 Physical Mobility: 4 (non weight bearing) Lines & Tubes: 1 Medications (CV or NATIONAL ACCOUNTS RECRUITER): 2 Falls Risk Score: (0-4 Low) (5-10 [...] 200 mg, Oral, TID, First dose on [place] 04/30/10 at 0800, Until Discontinued Given 05/13/2010 [...] mL/hr in NaCl 0.9 % 50 mL HAND MARKER syringe Intravenous, TITRATE, Starting on Tu05/09/10 at [...] , Starting on Sat05/02/10 at 1544, Until [facility] 05/06/10 at 1500, For 2 doses Given 05/02/2010 7:46 PM CDT 20 g lactulose oral liquid 20 g Given 05/12/2010 9:52 AM CDT 20 g 20 g (30 mL), Oral, BID PRN, constipation, Starting on Sat05/11/10 at 1050, Until [place] 05/14/10 at 0049 Given 05/11/2010 2:50 PM CDT 20 g lidocaine-epinephrine 1-1:323925 % injec tion Given 05/09/2010 1:04 PM [...] 90 Minutes, Intravenous, Q12H, First dose on [place] 04/30/10 at 0800, Until Discontinued Given 05/01/2010 [...] Minutes, Intravenous, Q12H (NON-STND), First dose on [facility] 05/04/10 at 0600, Until Discontinued Given [...] liquid (CA NCELED) 0900 (Given - Provider: Garht Rodriguez)2199 (Canceled Entry - Provider: Loretta Walters) [...] constipation documented in this encounter Care Teams Pest Control Applicator Relationship Specialty Start Date End Date Unassigned, Provider PCP - General 11/28/01 05/21/[address] [place] [address] documented as of this encounter
--- OUTSIDE RECORDS SUMMARY | 2022-07-04 15:16 | XMS_ITS | Encounter Summary ---
:1945 [facility] Address [address] [place] [address] Care Team Providers Name Role Phone Unassigned, [...] on filedocumented in this encounter Care Teams Computer Systems Technician Relationship Specialty Start Date End Date Unassigned, Provider PCP - General 11/28/01 05/21/[address] [place] [address] documented as of this encounter
--- OUTSIDE RECORDS SUMMARY | 2022-07-04 15:17 | XMS_ITS | Encounter Summary ---
:1945 Author Organization [facility] Address [address], [place] [address] Care Team Providers Name Role Phone Unassigned, Provider Primary Care Provider Unavailable Encounter Details Date Type Department Care Team Description 05/01/2010 Invasive Imaging [facility]/Us, Rad iologist Ultrasound [address] [facility] [address] [place] [address] [place] [address] [phone] Social History Tobacco Use Types Packs/Day Years [...] on filedocumented in this encounter Care Teams Anode Adjuster Relationship Specialty Start Date End Date Unassigned, Provider PCP - General 11/28/01 05/21/10 [address] [place] [address] documented as of this encounter
--- OUTSIDE RECORDS SUMMARY | 2022-07-04 15:17 | XMS_ITS | Encounter Summary ---
:1945 Author Organization [facility] Address [address] [place] [address] Care Team Providers Name Role Phone Unassigned, Provider Primary Care Provider Unavailable Encounter Details Date Type Department Care Team Description 05/03/2010 Imaging [facility] Rad[facility] Ul trasound [address] [place] [address] Social History Tobacco Use Types Packs/Day Years [...] on filedocumented in this encounter Care Teams Berry Planter Relationship Specialty Start Date End Date Unassigned, Provider PCP - General 11/28/01 05/21/[address] [place] [address] documented as of this encounter
--- OUTSIDE RECORDS SUMMARY | 2022-07-04 15:17 | XMS_ITS | Encounter Summary ---
:1945 Author Organization [employer] Address [address], [place] [address] Care Team Providers Name Role Phone Unassigned, Provider Primary Care Provider Unavailable Reason for Visit Reason Comments HEADACHE--ED recent back surgery Encounter Details Date Type Department Care Team Description 05/09/2010 Surgery RH Operating Room Maurice Baron, REPLACEMENT BACLOFEN [address] [place] [address] [address] [phone] [place], [place] [address] (Wo rk) Social History [...] Summaries Geetha Osuna 05/13/2010 4:[address] [facility] Discharge Summary Report (MD) Admit Date/Time: 04/30/2010 1:25 AM Discharge Date: 05/13/10 Service: Neurosurgery Staff MD: Dr. Maurice Baron Admitting Diagnosis: Encounter Diagnoses Code Name Primary? 453.40U DVT (Deep Venous Thrombosis) Yes ??? 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 784.0 Headache ??? 780.60BQ Fever ??? 728.85T Muscle Spasticity ??? 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 04338 CAREPLAN: BACLOFEN ??? 564.81 Neurogenic Bowel ??? [...] 04/24/2010 he was seen at ER in [place] & was treated with IM ceftriaxone & azithromycin for possible pneumonia. He felt slightly better for 2 daysbut then had fever again on 04/28, this time with significant chills & drenching sweats. He was admitted to [facility] on 04/29 for the fever. He also c/o severe headache since 04/28. He also has a baclofen pump in situ. Hospital Course: Mr. Cullen was admitted to [facility] on 04/30/2010. See above hx for details. [...] surgery. Discharge Disposition: Home with [facility], home PT Diet: Resume pre-op diet. Increase fiber and fluids to avoid constipation. Activity: No lifting greater than 10 pounds. No repetitive bending, twisting. No driving until seen in follow up in the neurosurgery clinic. No tub bathing, no hot tubs, and no swimming for 30 days post-operatively. Keep incision dry. Followup: 05/[address] [facility] Transfer Orders to Home Health Care Patient [...] drainage, warmth). Call the Neurosurgery Clinic at [phone] with any incisional changes. Keep incision dry. [...] in strength to your extremeties. Neurosurgery clinic [phone]. Diet Order Comments: Resume pre-op diet. Increase fiber and fluids to avoid constipation. Clinic Referral Order Comments: CLINIC: [facility]: Neurosurgery; [phone]; [address] [place] [address] DOCTORS NAME: Dr. Maurice Baron WHEN TO [...] provider. Geetha Osuna RN Neurosurgery Nurse Clinician [phone] I, Geetha Osuna RN, am serving as [...] from the original note were not included. [address] [place] [address] Discharge Instructions for: Jie Cullen Thank you for choosing [facility] as your hospital. A copy [...] additional information about your medications, visit this [employer] website, [email or web address]. Current Discharge Medication List START taking these [...] drainage, warmth). Call the Neurosurgery Clinic at [phone] with any incisional changes. Keep incision dry. [...] in strength to your extremeties. Neurosurgery clinic [phone]. Diet Resume pre-op diet. Increase fiber and fluids to avoid constipation. Clinic Referral CLINIC: [facility]: Neurosurgery; [phone]; [address] [place] [address] DOCTORS NAME: Dr. Maurice Baron WHEN TO [...] TREAT Admit to Home Care AGENCY NAME: [facility] Care Instructions Patient Teaching Handouts NONE Valuables/Medications [...] wound and fever Community Resources NONE Contact [address] [address] For questions about your discharge instructions call the nursing unit : [facility] [phone] Emergency & Urgently Needed Care: For emergencies call 911 and/or get medical help right away. If you are a [facility] member and have medical needs after clinic hours you may call the CareLineat [phone] or . All medical devices (telemetry/IV/etc) unless otherwise ordered, have been removed before discharge. Smoking and second-hand smoke exposure: Smoking damages blood vessels, reduces the oxygen in your blood and makes your heart beat too fast. If you smoke you should quit. Everyone should avoid second- hand smoke. If you would like further assistance after your discharge, please contact [phone] or visit [email or web address] can offer further [...] weight will also be followed by the Journe[employer] Tool [employer] Die [employer] when you go in for your [...] my discharge instructions: Jie Dubon Voegele (or Bottomer Operator) documented in this encounter Medications at [...] Dulce Palafox - 05/13/2010 10:[address] [facility] Discharge Note - Nursing Admission Date/Time: 04/30/2010 [...] Lázaro Lr - 05/13/2010 8:[address] [facility]. ID Progress Note Date of service: 05/13/10 [...] concerns arise subsequently. Lázaro Lr MD Pager [phone] Beth Lopez - 05/13/2010 4:40 PM CDT [facility] Transfer Orders to Home Health Care Patient Name: Jie Cullen Date of : 1945 Allergies: Zaroxolyn and Oxycodone Immunizations: Most Recent Immunizations Administered Date(s) Administered ??? Flu Vac (3+ yrs) 10/06/2009 ??? H1n1 Miv Csl 3+ Yr (Injected) 12/06/2009 ??? Pneumococcal, PPSV23 10/06/2009 Current Attending Provider: Mauirce Baron MD Discharge Procedure Orders When to Resume Normal Activities: Order Comments: No lifting greater than 10 pounds. No repetitive bending, twisting. No tub bathing, no hot tubs, and no swimming for 30 days post- operatively. Keep incision dry. Discharge Instructions Order Comments: Monitor incision daily for signs of infection (redness, drainage, warmth). Call the Neurosurgery Clinic at [phone] with any incisional changes. Keep incision dry. [...] in strength to your extremeties. Neurosurgery clinic [phone]. Diet Order Comments: Resume pre-op diet. Increase fiber and fluids to avoid constipation. Clinic Referral Order Comments: CLINIC: [facility]: Neurosurgery; [phone]; [address] [place] [address] DOCTORS NAME: Dr. Maurice Baron WHEN TO [...] have been electronically signed. (In accordance with [employer]. Regulation Set, Fed A0232 - Types of Authentication) Discharging MD: Dr Powell Today's Date: 05/13/10 --- End of Report --- Beth Lopez - 05/13/2010 4:03 PM CDT Brief Weekend Social Work Note Received request to arrange home PT for pt for d/c today. Pt had previously been assessed by [facility] in [facility] (ph# [phone], fax [phone]). Left message regarding referral @Greg and requested order from and will have UNDER WATER ASSISTANT fax it. No further needs at this time. Beth Lopez CLINICIAN ONCOLOGY, [facility] Beeper [phone] Faxed orders to [facility]. Ozzy Dietz RN - 05/13/2010 3:21 PM CDT [facility] Progress Note (Nursing) Identify/Problem(s): Comfort [...] Squires, PT - 05/13/2010 1:[address] [facility] IP Physical Therapy Progress Note PT Visit Room/Bed: [id number] Patient Seen: bedside Diagnosis: Encounter Diagnoses Code Name Primary? 453.40U DVT (Deep Venous Thrombosis) Yes ??? 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 784.0 Headache ??? 780.60BQ Fever ??? 728.85T Muscle Spasticity ??? 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 54359 CAREPLAN: BACLOFEN ??? 564.81 Neurogenic Bowel ??? [...] PM: 25 minutes Yen Squires PT Pager: [phone] Department: 9-1700 --- End of Report --- Kiko Powell S - 05/13/2010 12:42 PM CDT [facility] MEDICINE PROGRESS NOTE DOA: 04/30/2010 1:25 AM [...] Prophylaxis: back on coumadin. Kiko Powell MD [facility] Hospitalist Pager: [phone] TT spent >35 min and 50% in [...] Bush RN - 05/13/2010 1:56 AM CDT [facility] Progress Note (Nursing) Identify/Problem(s): Pain/comfort/skin integrity [...] Walters RN - 05/12/2010 11:47 PM CDT [facility] Progress Note (Nursing) Identify/Problem(s): GI function [...] Geetha Osuna - 05/12/2010 2:[address] [facility] NeuroSurgery Progress Note 05/12/2010 Vitals Temp (24hrs), [...] weekend Geetha Osuna RN Neurosurgery Nurse Clinician [phone] I, Geetha Osuna RN, am serving as [...] Tania Brantley - 05/12/2010 11:[address] [facility] Care Management Grinder Set Up Operator Thread Follow Up Note Admission Date/Time: 04/30/2010 1:25 [...] completed by Tania Brantley RN, Pager Number [phone] --- End of Report --- Mary Ann Dubose - 05/12/2010 10:[address] [facility] IP Physical Therapy Progress Note PT Visit Room/Bed: [id number] Patient Seen: bedside Diagnosis: Encounter Diagnoses Code Name Primary? 322.9P Meningitis Yes ??? 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 784.0 Headache ??? 780.60BQ Fever ??? 728.85T Muscle Spasticity ??? 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 [address]4533 CAREPLAN: BACLOFEN ??? 564.81 Neurogenic Bowel ??? [...] Mary Ann Dubose, PT Department number is [phone] Pager number is [phone] --- End of Report --- Kiko Powell [...] at clinic / local ER - case loader operator aware & involved. Pt underwent REVISION OF [...] Fluid c/s, urine cultures Kiko Powell MD [facility] Hospitalist Pager: [phone] TT spent >15 min and 50% in CC of above issues which includes review of EPIC including notes/labsand imaging, discussion of care plan with pt and time spent in documentation on the pt's floor today. Dave Sapp PA-C - 05/12/2010 9:23 AM CDT [facility] Progress Note (Nursing) Identify/Problem(s): GI/Activity Desired [...] Patria Wright - 05/12/2010 8:[address] [facility] Occupational Therapy Brief Contact Note Orders received [...] Patria Wright OTR/L (pager) OT Dept #: [phone] - OT Weekend Pager #: [phone] - [facility] Main #: [phone] --- End of Report --- Merced Snowden RN - 05/12/2010 2:[address] [facility] Progress Note (Nursing) Identify/Problem(s): Comfort Desired Outcome(s): [...] Walters RN - 05/12/2010 12:[address] [facility] Progress Note (Nursing) Identify/Problem(s): lethargy Desired Outcome(s): Return to usual level of alertness Evaluation: Patient unable to stay awake. His said he is receiving normal dose of baclofen from his pump. Refused oral doses. Reported moderate headache on right side of amish. Area massaged for 10min. Pt fell asleep [...] Geetha Osuna - 05/11/2010 3:[address] [facility] NeuroSurgery Progress Note 05/11/2010 Vitals Temp (24hrs), [...] updated, answered questions Change dressing daily Dc FIELD IDENTIFICATION SPECIALIST Will contact PM&R to see if we can back off Baclofen Hgb noted, will monitor for now Up with assist PT/OT Ok to resume full anticoagulation today Appreciate medicine following Antibiotic recs per ID Geetha Osuna RN Neurosurgery Nurse Clinician [phone] I, Geetha Osuna RN, am serving as [...] Garth Rodriguez - 05/11/2010 1:[address] [facility] Progress Note (Nursing) Identify/Problem(s): Pain, Wound, Activity, [...] states Not bad. Pt only using Dilaudid FIELD IDENTIFICATION SPECIALIST total for this shift was 0.4mg. Patient [...] care with patient, family and child care assistant. Romelia Rodriguez RN --- End of Report --- Garth Rodriguez - 05/11/2010 12:50 PM CDT Problem: Falls Risk Goal: Moderate Risk (5-10): Fall Prevention I applied all active moderate risk falls prevention interventions. Jamie Ralph RD, ALEJA - 05/11/2010 11:[address] [facility] Nutrition Reassessment and Care Plan CURRENT NUTRITION [...] have questions call Registered Dietitian Beeper at [phone] Weekend pager: [phone] Progress Since Last Assessment Current Nutrition/Diet Order: [...] Tania Brantley - 05/11/2010 10:[address] [facility] Care Management Grinder Set Up Operator Thread Follow Up Note Admission Date/Time: 04/30/2010 1:25 [...] completed by Tania Brantley RN, Pager Number [phone] --- End of Report --- Kiko Powell - 05/11/2010 9:31 AM CDT [facility] MEDICINE PROGRESS NOTE DOA: 04/30/2010 1:25 AM [...] mg in NaCl 0.9 % 50 mL FIELD IDENTIFICATION SPECIALIST syringe IV Titrate ??? iron polysaccharide complex [...] at clinic / local ER - case loader operator aware & involved. Pt underwent REVISION OF [...] de la cruz changed. Kiko Powell MD [facility] Hospitalist Pager: [phone] TT spent >35 min and 50% in [...] with 1550ml out this shift. Has dilaudid FIELD IDENTIFICATION SPECIALIST 0.2 bumps only 15 min lockout, used 0.61mg this shift. Pain is managed well with FIELD IDENTIFICATION SPECIALIST per patient. Dressings are CDI. Was able [...] Ozzy Dietz - 05/10/2010 10:51 PM CDT [facility] Progress Note (Nursing) Identify/Problem(s): Comfort Desired Outcome(s): Pt will be comfortable Evaluation: Pt drowsy most of the day. Denies pain. FIELD IDENTIFICATION SPECIALIST dilaudid basal stopped @ 1600, bumps only [...] ml Output 4600 ml Net -2965 ml @TOCL42ONQT@Last Chem10 results: Lab Results Component Value Date/Time [...] Bernard Alcantar - 05/10/2010 3:[address] [facility] Progress Note (Nursing) Identify/Problem(s): Pain;nausea Desired Outcome(s): Pt will be comofrtable. Pt will not be nauseated. Evaluation: Pt has been using FIELD IDENTIFICATION SPECIALIST for headache. He has been sleepy. Pt was nauseated . Zofran was helpful. Plan: Continue FIELD IDENTIFICATION SPECIALIST. Medicate as need for nausea. Bernard Alcantar RN --- End of Report --- Archana Pace - 05/10/2010 11:[address] [facility] Osteopathy Doctor Department Progress Note Irrigation Tax Assessor Collector Notes: Initial assessment for spiritual and emotional support needs for pt/family during this hospitalization. Jeff and (Heather) are known to me from previous hospitalization. I met with Jeff and Heather this morning; Jeff is c/o FIELDS after having bath this morning; using FIELD IDENTIFICATION SPECIALIST for pain relief. Heather is hopeful that [...] flat bedrest anymore. They are aware of general inspector availability. Plan: Osteopathy Doctor will continue following for ongoing spiritual and emotional support to pt/family. Report Completed by: Archana Pace, [facility] Staff Irrigation Tax Assessor Collector --- End of Report --- Kiko Powell [...] mg in NaCl 0.9 % 50 mL FIELD IDENTIFICATION SPECIALIST syringe IV Titrate ??? iron polysaccharide complex [...] at clinic / local ER - case loader operator aware & involved. Pt underwent REVISION OF [...] cbc, u/a in am Kiko Powell MD [facility] Hospitalist Pager: [phone] TT spent >35 min and 50% in CC of above issues which includes review of EPIC including notes/labsand imaging, discussion of care plan with pt and time spent in documentation on the pt's floor today. Merced Snowden RN - 05/10/2010 3:44 AM CDT [facility] Progress Note (Nursing) Identify/Problem(s): Post op status Comfort Desired Outcome(s): Patient will have stable post op course Patient will be comfortable Evaluation: Patient a/o x4, neuros and cms intact. PERRMIRNA. VSS, BP low @ 0000 98/65, re- check @ 0400 111/68. Reported that pain is adequately managed with FIELD IDENTIFICATION SPECIALIST pump at 0.2/0.2/q15m lockout. Per report patient's [...] Ozzy Dietz - 05/09/2010 11:58 PM CDT [facility] Progress Note (Nursing) Identify/Problem(s): Post-op Desired Outcome(s): Stable post-op status Evaluation: Pt alert & oriented x4. POD#0 for Revision of Baclofen Pump Catheter. Rating pain 5-7/10. Dilaudid for pain given. FIELD IDENTIFICATION SPECIALIST dilaudid started this evening .2mg bumps q [...] had the pump recalibrated by the PM&R c consultant this afternoon, tolerating combination of IV [...] Martha Thomas - 05/09/2010 5:[address] [facility] PM&R Progress Note () Date of service: 05/09/2010 Diagnosis: Encounter Diagnoses Code Name Primary? 784.0 Headache Yes ??? 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 780.60BQ Fever ??? 728.85T Muscle Spasticity ??? 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 55882 CAREPLAN: BACLOFEN ??? 564.81 Neurogenic Bowel ??? [...] replacement, intrathecal baclofen was removed and replaced [id number] of baclofen. . OBJECTIVE: Patient Vital Signs [...] Bernard Alcantar - 05/09/2010 3:06 PM CDT [facility] Progress Note (Nursing) Identify/Problem(s): Pain Desired Outcome(s): Pt will be comfortable Evaluation: Pt has been off floor since 1100. Prior to leaving did not c/o pain. Plan: Medicate if needed for pain. Bernard Alcantar RN --- End of Report --- Bernard Alcantar - 05/09/2010 3:[address] [facility] Nursing Pre-Op Note Admission Date/Time: 04/30/2010 1:25 [...] Tania Brantley - 05/09/2010 12:[address] [facility] Care Management Grinder Set Up Operator Thread Follow Up Note Admission Date/Time: 04/30/2010 1:25 [...] write orders for IV infusions for the [address] while ptin need of iv [...] completed by Tania Brantley RN, Pager Number [phone] --- End of Report --- Kiko Powell - 05/09/2010 8:[address] [facility] MEDICINE PROGRESS NOTE Patient: Jie Cullen : [...] at clinic / local ER - case loader operator aware & involved. Today pt underwent REVISION [...] Updated at bedside. Kiko Powell MD Pager: [phone] DOS: 05/09/2010 Filomena Diaz RN - 05/09/2010 4:[address] [facility] Progress Note (Nursing) Identify/Problem(s): Safety Comfort Desired [...] Dulce Palafox - 05/08/2010 9:[address] [facility] Progress Note (Nursing) Identify/Problem(s): Comfort Desired Outcome(s): [...] Priti Hickey - 05/08/2010 4:[address] [facility] Progress Note (Nursing) Identify/Problem(s): Skin integrity Coping [...] Poonam Wallace - 05/08/2010 12:[address] [facility] MEDICINE PROGRESS NOTE Date of Service : [...] at clinic / local ER - case loader operator aware & involved. Polyuria - notes polyuria [...] care. Updated at bedside. Poonam Wallace MD [phone] Geetha Osuna - 05/08/2010 11:[address] [facility] NeuroSurgery Progress Note 05/08/2010 Vitals Temp (24hrs), [...] tolerated Geetha Osuna RN Neurosurgery Nurse Clinician [phone] I, Geetha Osuna RN, am serving as [...] Tena Jasso - 05/08/2010 5:59 AM CDT [facility] Progress Note (Nursing) Identify/Problem(s): Comfort [...] Bernard Alcantar - 2010 11:[address] [facility] Progress Note (Nursing) Identify/Problem(s): Pain Desired Outcome(s): Pt will be comfortable. Evaluation: Pt c/o headache. Tylenol not effective. He received 2 vicodin with good relief. Plan: Medicate as needed for pain. Bernard Alcantar RN --- End of Report --- Priti Hickey - 2010 5:[address] [facility] Progress Note (Nursing) Identify/Problem(s): Pain Coping Skin [...] Poonam Wallace - 2010 11:[address] [facility] MEDICINE PROGRESS NOTE Date of Service : [...] care. Updated at bedside. Poonam Wallace MD [phone] Heidy Jassojagdish Salgado - 2010 3:52 AM [...] Priti Hickey - 05/06/2010 5:57 PM CDT [facility] Progress Note (Nursing) Identify/Problem(s): Skin integrity [...] Poonam Wallace - 05/06/2010 12:[address] [facility] MEDICINE PROGRESS NOTE Date of Service : [...] care. Updated at bedside. Poonam Wallace MD [phone] Priti Hickey - 05/06/2010 11:02 AM CDT [...] Markos Ford - 05/06/2010 2:[address] [facility] Progress Note (Nursing) Identify/Problem(s): Comfort Pain Desired [...] Carolina Baca - 05/05/2010 8:[address] [facility] Progress Note (Nursing) Identify/Problem(s): pain Wound Desired [...] Elise Briseno - 05/05/2010 6:[address] [facility] Progress Note (Nursing) [id number] Identify/Problem(s): Wound healing Desired Outcome(s): Will have [...] Martha Thomas - 05/05/2010 4:[address] [facility] PM&R Progress Note () Date of service: [...] valium if needed. 3. Please call PMR plant control aide MD if questions over the weekend. Thank you. Martha South MD Total time: 25minnseling and Coordination time: 20min --- End of Report --- Poonam Wallace - 05/05/2010 11:[address] [facility] MEDICINE PROGRESS NOTE Date of Service : [...] & sister at bedside. Poonam Wallace MD [phone] Britni Huerta - 05/05/2010 10:[address] [facility] Clinical Pharmacy Follow Up Kinetics Note Assessment: Jie Cullen, [id number], is a 64 yr year old male receiving Vancomycin 2g iv q12h and cefepime 2g iv q12h for meningitis Recent Labs Basename 05/05/10 0615 ??? VANCO 17.1* Recommendations: No changes to current vanco regimen since above level is within goal 15-20 mg/L. Will recheck level in 5-7days. Will follow. Britni Huerta PharmD Pager Number [phone] --- End of Report --- Brittny Jasso - 05/05/2010 10:[address] 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 Progress Note (Nursing) Identify/Problem(s): Headache Desired Outcome(s): [...] James RN - 05/04/2010 12:[address] [facility] Progress Note (Nursing) Identify/Problem(s): FIELDS Desired Outcome(s): [...] Tania Brantley - 05/04/2010 11:[address] [facility] Care Management Grinder Set Up Operator Thread Follow Up Note Admission Date/Time: 04/30/2010 1:25 [...] and hopefully set up at ED in [place]. Pt's primary MD is out of office until May 10 and his clinic has a different plant control aide physician everyday, so that makes it tough [...] completed by Tania Brantley RN, Pager Number [phone] --- End of Report --- Brittny Jasso - 05/04/2010 10:[address] [facility] NeuroSurgery Spine Progress Note Date: 05/04/2010 Vitals [...] RN, ACNS-, CNRN Neuroscience Clinical Nurse Specialist [phone] --- End of Report --- Maurice Baron [...] Mónica Saldana - 05/04/2010 6:[address] [facility] Progress Note (Nursing) Identify/Problem(s): Headache Desired Outcome(s): [...] Maradiaga RN - 05/03/2010 10:[address] [facility] Progress Note (Nursing) Identify/Problem(s): Headache Desired Outcome(s): [...] Mckayla Hernandez - 05/03/2010 6:[address] [facility] Clinical Pharmacy Follow Up Kinetics Note Assessment: Jie Cullen, [id number], is a 64 yr year old male receiving vanco 1750mg IV q12h and [id number] IV q12h for meningitis. Recent Labs Basename 05/03/10 1745 ??? VANCO 13.0* Desired trough 15-20 mcg/ml Recommendations: The trough level is below the goal range. Will increase vanco to 2g IV q12h and recheck on Sat, 05/05. Mckayla Hernandez Pager Number [phone] --- End of Report --- Keith, Lucy Clemente - 05/03/2010 4:[address] [facility] NeuroSurgery Progress Note Pt has been experiencing [...] Tania Brantley - 05/03/2010 3:27 PM CDT [facility] Care Management Grinder Set Up Operator Thread Initial Assessment Admission Date/Time: 04/30/2010 1:25 AM Attending MD: Maurice Baron Data Jie Cullen was referred to this Grinder Set Up Operator Thread for discharge planning. Chart reviewed, discussed with interdisciplinary team, as well as with patient and family. Jie Cullen was admittedto S10 for Headache [784.0] (HEADACHE). Insurance: Payor: MEDICARE PART B ONLY [id number] Plan: MEDICARE PART B ONLY Product Type: Medicare Current Living Situation: Patient lives with their spouse. Support System: and family Services Involved: none Additional Data: Pt's primary MD is Dr. Loretta Mcmahan at the [facility] Coordination of Care and Referrals: Provided patient/family with options for dc planning. Barriers to Discharge: patient continues to require acute medical care Assessment Pt is known to me from his previous admission. He lives with his in a single level home withoutsteps. Pt is wheelchair bound. He has a manual wc as well as a motorized wc. Pt has assist from [facility] sliding board for transfers. He also has [...] go into the ER at the [address] in [place] . I did speak with house detective in the ED at hospital who tells me it is possible to provide this service for pt, monicay would need the orders to come from pt's primary MD. I called pt's clinic this afternoon and los pt's primary MD is out of the office until May 10, that I would need to speak with the plant control aide MD. The plant control aide MD changes everyday, therefore I did not [...] completed by Tania Brantley RN, Pager Number [phone] --- End of Report --- Olimpia James RN - 05/03/2010 3:08 PM CDT [facility] Progress Note (Nursing) Identify/Problem(s): Comfort [...] Snowden RN - 05/03/2010 4:59 AM CDT [facility] Progress Note (Nursing) Identify/Problem(s): Pain, Comfort Desired Outcome(s): Patient will have optimal pain relief Patient will be comfortable Evaluation: Patient reports FIELDS pain as 5/10, given prn vicodin x1 with good relief. Repositioned x2 per pt request to not be bothered overnight in order to sleep well. Positioned with pillows. Getting IV abx. D Ela Cruz with pale yellow urine, large output [...] Busby RN - 05/02/2010 9:[address] [facility] Progress Note (Nursing) Identify/Problem(s): Comfort and bowels [...] Martha Thomas - 05/02/2010 3:[address] [facility] PM&R Progress Note () Date of service: [...] James RN - 05/02/2010 12:[address] [facility] Progress Note (Nursing) Identify/Problem(s): Comfort, skin integrity [...] Lucy Parker - 05/02/2010 10:[address] [facility] NeuroSurgery Progress Note Pt doing well, resting comfortably in bed. Denies FIELDS currently Vitals Temp (24hrs), Min:98.3 ??F (36.8 ??C), Max:100.4 ??F (38 ??C) Mean Arterial Pressure (MAP) Av.9 MM HG Min: 65 MM HG Max: 81 MM HG Exam Resting comfortably in bed No FEILDS or neck pain with flexion of neck [...] at home vs TCU depending on insurance print binding worker will look into discharge planning, home [...] Powell, PharmD - 05/02/2010 8:[address] 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 Recent Labs Basename 05/01/10 1940 ??? VANCO 11.1* ??? GENT -- ??? TOBR -- ??? AMKC1 -- Desired level(s) are: trough 15-20 mcg/ml Recommendations: As level below desired range, will increase regimen to 1250mg iv q8h and follow. Will recheck a trough level in next few days if remains on vanco. Linda Powell Pager Number [phone] Later- Spoke with Dr Garcia of [place]. Patient needs to be on a q12h regimen for discharge, so will change vanco to 1750mg iv q12h starting this afternoon. Will follow and check a trough level if patient remainsin the hospital in next few days. Linda Powell, Jony --- End of Report --- Merced Snowden RN - 05/02/2010 4:[address] [facility] Progress Note (Nursing) Identify/Problem(s): Comfort, Skin integrity [...] Dhaliwal RN - 05/01/2010 10:[address] [facility] Progress Note (Nursing) Identify/Problem(s): Transfer Desired Outcome(s): [...] Ankita France - 05/01/2010 4:[address] [facility] Progress Note (Nursing) Identify/Problem(s): Pain Desired Outcome(s): [...] bowel regimen. Plan to transfer patient to [facility]. Plan: Continue to assess and monitor. Transfer to S10. Ankita France RN --- End of Report --- Ankita France - 05/01/2010 4:20 PM CDT Problem: Falls Risk Goal: Moderate Risk (5-10): Fall Prevention I applied all active moderate risk falls prevention interventions. Martha Thomas - 05/01/2010 10:[address] [facility] PM&R Consult Note ()/f/up Date of service: 05/01/2010 Diagnosis: Encounter Diagnoses Code Name Primary? 322.9P Meningitis ??? 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 784.0 Headache ??? 780.60BQ Fever ??? 728.85T Muscle Spasticity YES ??? 191.9DC Ependymoma I was asked by to evaluate Jie Jagdish Cullen for adjustment of baclofen pump. 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 Patient readmitted to [facility] on 04/30 due to fever,chills, neck [...] REQUESTS Unspecified - ??? AEROBIC CULT NUMBER [id number] - ??? CULTURE Preliminary Culture Negative;Reincubate - [...] 1.9 1.6-2.3 (mg/dl) PHOSPHORUS Component ValueRange???PHOSPHORUS3.6 2.5-4.5 (mg/dl)INR/PROTIMEComponentValueRange???JFIOKNO96.5 (*)12.0-14.5 (sec)???INR2.5 - HEMOGRAM/PLTSComponentValueRange???WBC6.8 4.0-11.0 (k/ul)???RBC2.89 (*)4.5-5.9 (M/ul)???HGB8.6 (*)13.5-17.5 (g/dl)???HCT25.6 (*)41.0-53.0 (%)???MCV88.7 80-100 (fl)???MCH29.9 26-34 (pg)???MCHC33.7 32-36 (g/dl)???RDW15.1 (*)11.5-14.5 (%)???VTHU753 150-450 (k/ul)???MPV8.1 6.5-10.0 (fl) PROCEDURE NOTE: (resident was assisting with the programming of the pump under direct supervision) Pump interrogated: 05/01/2010 Current settings: Baclofen Concentration 1,000mcg/ml on simple continuous mode at a dose of 199.9 mcg/day. Pump updated settings: Baclofen concentration 1,000 mcg/ml on simple continuous mode increased to 249.8 mcg/day. Alarm date: 09/21/2010 [place] volume: 37.3ml ASSESSMENT 64 y/o male with [...] Loree Allen - 05/01/2010 9:[address] [facility]. Infection Control Practitioner Note Issue Isolation status for meningitis Action Per Dr. Llamas (ID service0 note dated 03.30.10, patient's droplet precautions could have been discontinued at 1700 yesterday. Droplet order still in place. Patient has received 24 hours of appropriate antibiotics per ID. Will discontinue droplet precautions. Comments Will update staff during rounds. Please call infection prevention and control ext. [phone] with any additional isolation questions. Loree Allen RN, Senior Cost Estimator --- End of Report --- Paz Choudhary - 05/01/2010 4:[address] [facility] Progress Note (Nursing) Identify/Problem(s): Hypotension Desired Outcome(s): [...] Paulina Ibrahim - 04/30/2010 11:30 PM CDT [facility] Progress Note (Nursing) Identify/Problem(s): Headache Desired [...] Ann Sullivan - 04/30/2010 3:39 PM CDT [facility] Progress Note (Nursing) Identify/Problem(s): Headache Post [...] Cristine Henson - 04/30/2010 2:[address] [facility] PM&R Progress Note () Date of service: [...] 80-100 (fl)???MCH30.1 26-34 (pg)???MCHC34.6 32-36 (g/dl)???RDW14.3 11.5-14.5 (%)???NELV670 150-450 (k/ul)???MPV7.1 6.5-10.0 (fl)???PMN/BAND80 (*)43-72 (%)???LYMPH13 (*)17-43 (%)???MONO7 4-12 (%)???EOS0 0-8 (%)???BASO0 0-1 (%)???PMN ABSOLUTE7.1 1.8-7.7 (k/ul)???LYMPH ABSOLUTE1.1 1.0-4.8 (k/ul)???MONO ABSOLUTE0.6 0.1-0.7 (k/ul)???EOS ABSOLUTE0.0 0.0-0.5 (k/ul)???BASO ABSOLUTE0.0 0.0-0.2 (k/ul)BASIC METABOLIC PANELComponentValueRange???BUN10 7-20 (mg/dl)???EIZPZE935 135-145 (mmol/L)???POTASSIUM4.3 3.5-5.1 (mmol/L)???WSDHVJWV200 98-107 (mmol/L)???CO228 22-30 (mmol/L)???URWTKQU293 70-180 (mg/dl)? ?CREATININE0.71 0.66-1.25 (mg/dl)? ?GFR, ESTIMATED>60.00 [...] any questions re: tone management. Please page [phone] with any questions or concerns re: ITB pump or tone management tonight. will be available tomorrow at [phone]. Total time: 25. Counseling and Coordination time: [...] Alyce Arguelles - 04/30/2010 7:[address] [facility] Clinical Pharmacy Initial Kinetics Note Assessment: Jie Cullen, [id number], is a 64 year old male started on Meropenem 2 gm IV q8h and Vancomycin 1 gm IV q12h for possible meningitis. Data: Last Height: 5' 10 (177.8 cm) Last Wt - Scale: 257 lb 0.9 oz (116.6 kg) [place] Body Weight: 73 kg Dosing Weight: 90 [...] this matter. Thanks. Alyce Arguelles Pager Number: [phone] --- End of Report --- Aidee Villarreal - 04/30/2010 3:[address] [facility] Progress Note (Nursing) Identify/Problem(s): Headache Desired Outcome(s): [...] Jaden Tavarez - 04/29/2010 10:29 PM CDT [facility] Clinical Pharmacy Medication Reconciliation Note [...] condition. PHARMACIST NAME: Jaden Tavarez Phone/Pager #: [phone] --- End of Report --- Cristine Henson - 04/29/2010 8:13 PM CDT [facility] PM&R Progress Note () Date [...] 1 g IV Now Subjective: Called by radiologic technology teacher to re-start pump following MRI. Mr. Cullen [...] in 2006, followed by Dr. Hooper at [facility] for management.Last hospitalization dose was increased [...] S/p arthroscopic knee procedure SHx: Lives in [facility] with his , doesn't smoke, no EtOH. [...] interogated: SynchroMed IIB 8637-40 40mL Serial number [id number] Catheter: two- piece, Total Catheter Volume 0.222 [...] to risk of ITB pump infection if VP REVENUE CYCLE is infected. Discussed possible need for explant if infected. They are agreeable with side-port access for CSF sample. Will begin decreasing ITB dose in anticipation of possible explant; we can increase the dose later if pump is not explanted. -Called charity: water support to verify catheter information. They do [...] not locate a side-port access kit in [facility]'s materials room or IV pharmacy; one was located at [facility] and brought to the ER. PROCEDURE NOTE: [...] 225 mcg/day simple continuous. Dose verified on report programmer by the patient. Alarm date of 10/07/2010 noted. If primary team needs a CSF sample, may consider an image-guided access of the side-access port (ultrasound or CT) vs a traditional LP. Please page me at [phone] prior to procedure as there is a specific kit needed and specific techniques and reprogramming needed to minimize risk of intrathecal baclofen overdose or withdrawal. Discussed with ER team. Will follow-up on patient in the morning, please page me at [phone] with any questions or concerns prior to that. Total time: 80. Counseling and Coordination time: 50. Cristine Henson MD --- End of Report --- documented in this encounter Procedure Notes Baron Maurice X - 06/26/2010 11:07 AM CDT DATE OF SURGERY: 05/09/2010 STAFF SURGEON: Maurice Baron MD SORTING LIVESTOCK WORKER: Lucy Parker, PA ANESTHESIA: General. PREOPERATIVE DIAGNOSES: [...] up, extubated, and taken stable to the [facility]. The procedure was well tolerated with no apparent complications. Needle and sponge counts correct and verifiedat the end of the case. EBL was less than 5 mL. MD hailey David Dictated: 06/26/2010 11:07:23 Transcribed: 06/26/2010 15:10:40 Doc #: [id number] cc: 1 Page 2 Patient Name: JIE CULLEN INPATIENT OPERATIVE REPORT CONFIDENTIAL MEDICAL RECORD [address] [phone] Page 1 Patient: JIE CULLEN Location: [facility] HPN: [id number] Admit Date: 04/30/2010 Date of : 1945 Discharge Date: 05/13/2010 Age: 65Y INPATIENT OPERATIVE REPORT Lucy Parker - 05/09/2010 1:[address] [facility] Brief Operative Progress Note Surgery Date: 05/09/2010 Primary Surgeon: Surgeon(s): Maurice Baron Assistants: Lucy Pakrer PA-C Post-op Diagnosis: INFECTION-THORACIC Procedure: REVISION OF BACLOFEN PUMP CATHETER EBL: 5 mL Specimens: Fluid around baclofen pump and CSF fluid from the catheter Complications / Findings: None/ see dictated operative note Removed old baclofen, replaced with new 40 mL 1000mcg/mL baclofen. Did not change pump settings. Didnot put in new pump Replaced catheter tubing Plan: Transfer back to [address] [place] [address] x 24 hours Continue with IV abx [...] The procedure was medically necessary for an photography assistant because Dr. Baron needed the operative exposure and assistance that I provided. This allowed him to safely and efficiently operate. It was also important that I help ligate blood vessels to maintain hemostasis and reduce the bleeding risk. The assistance that I provided reduced operative time which meant less general anesthetic for the patient. Lucy Parker PA-C --- End of Report --- [facility] ANESTHESIA, PROVIDER - 05/09/2010 12:00 AM CDT [facility] ANESTHESIA, PROVIDER - 05/09/2010 12:00 AM CDT [facility] ANESTHESIA, PROVIDER - 05/09/2010 12:00 AM CDT [facility] ANESTHESIA, PROVIDER - 05/09/2010 12:00 AM CDT [facility], PROVIDER - 05/09/2010 12:00 AM CDTAssociated Order(s): EKG IP; EKG IP Birgit Melton - 05/01/2010 3:[address] [facility] Radiology Drainage Note Procedure: Ultrasound guided drainage [...] Jennyfer Ramírez - 05/01/2010 1:09 PM CDT [facility] PICC Line Insertion Procedure Note Singe Lumen PICC Site One Date of Service: 05/01/10 UNIVERSAL PROTOCOL: Procedure Location: Condition: Elective Consent: Imformed Written Patient Identification: Verified Time Out: Performed Site Prep: Chloraprep Protective Barriers: Maximum Barriers Used including Handwashing, Sterile Gown, Gloves, Mask, Eye Protection & Cap PROCEDURE: Insert/Remove: Inserted Inserted By?: PICC Services Indication: Antibiotics Cattle Care Worker: Power PICC Size (British): 5 Length (cm): 47 CM Lot #: [id number] Location: Right or Left: Right Site: Basilic [...] fevers and headaches. He was admitted to [facility] on 04/29 for fever and was [...] patient is and lives with his in [place]. REVIEW OF SYSTEMS: Positive for decreased ability [...] further eval. Jayna Ambriz MD [facility] Dictated: 05/08/2010 17:54:52 Transcribed: 05/08/2010 19:39:57 Doc #: [id number] cc:Maurice Baron MD 1 Page 3 Patient Name: JIE CULLEN CONSULTATION CONFIDENTIAL MEDICAL RECORD [address] [id number] Page 1 Patient: JIE CULLEN Location: [facility] HPN: [id number] Admit Date: 04/30/2010 Date of : 1945 Discharge Date: Age: 65Y CONSULTATION Zelalem Cohen - 2010 10:[address] [facility] PM&R Consult Note () S: Pt is [...] 2:44 PM CDTAssociated Order(s): MEDICINE INPT CONSULT [facility] Medicine Consult Patient Name: Jie [...] 04/24/2010 he was seen at ER in [place] &was treated with IM ceftriaxone & azithromycin for possible pneumonia. He felt slightly better for 2 days but then had fever again on 04/28, this time with significant chills & drenching sweats.He was admitted to [facility] on 04/29 for the fever. [...] 2000 S/p resection by Dr. Glasgow at [place] in 05/2000. However resection was incomplete due [...] 1 at baseline. Lives with his in [place]. . Physical Examination: Vital Signs: Patient Vitals [...] please call with Questions. Poonam Wallace MD [phone] 05/04/2010 Jessica Garcia - 05/01/2010 11:15 AM CDTAssociated Order(s): WOUND/SALES OFFICE MANAGER CONSULT Wound/molding sander Consult Note Was consulted by nursing to provide wound care recommendations to surgical site; will defer to the patient's primary team Neurosurgery to provide orders; spoke with RN who will contact NS to place orders. Please contact the wound care service with any further questions or concerns. [phone]. Jessica Breen MSN, RN, ANP, CWOCN [phone] pager [phone] office Radames Llamas - 04/30/2010 2:32 PM [...] knee procedure Social history He lives in [place] with his . They have a dog [...] is a 64 yr male admitted to [facility] on 04/29/2010 3:00 PM with No [...] 04/29/2010 22:18:42 Transcribed: 04/29/2010 23:14:32 Doc #: [id number] cc: 1 Page 1 Patient Name: JIE CULLEN Visit Date: 04/29/2010 EMERGENCY MEDICINE NOTE CONFIDENTIAL MEDICAL RECORD [address] [phone] Page 1 Patient: [facility]IE [facility]ULLEN [id number] of [facility] 1945 Age: 64Y Visit Date: 04/29/2010 EMERGENCY MEDICINE NOTE Alia Negron - 04/29/2010 9:58 PM CDT [facility] Clothing List Patient Name: Jie Cullen Today's [...] Alia Negron - 04/29/2010 9:58 PM CDT [facility] Patient's Valuables At Admission Patient Name: [...] Jewelry: Kept with Patient Watch Watch: No [place] #: 0 Items Belonging to Other People Items Belonging to Other People: No No items were sent to the Area Loss Prevention Manager's Office. Any unclaimed personal items deposited into the custody of the hospital will be disposed of by the hospital if they are not claimed within 180 days of discharge. Patients' Signature Witness Mobile Home Lot Utility Worker Bottomer Operator's Signature Witness (Print this note to [...] Zelalem Dick - 04/29/2010 4:35 PM CDT [facility] Emergency Department Attending Supervision Note I performed [...] strength equal BLE, sensation intact bilateral UEs, movie critic II-XII grossly intact Assessment: 64 yo male here with fever, FIELDS, neck pain concerning for meningitis vs. Postop abscess/infection Plan: Re-check Vitals Imaging: MR Scan(s): MRI thoracic Laboratory: CBC, Chem 8 and CSF for gram stain and culture, cell count and diff, protein, glucose, AFB Consultation: Neurosurgery and rehab medicine IV Fluid Analgesics Medication: dilaudid, valium, ceftriaxone, vancomycin, metronidazole Chemical Process Project Engineer patient/family Re-evaluate patient Check response to treatment Planned Disposition: inpatient admission Antibiotics including ceftriaxone, vancomycin, and metronidazole were started immediately to cover for meningitis and epidural abscess and pt was put on droplet precautions. Labs show WBC 11.3, Hgb 10.4, otherwise unremarkable. MRI thoracic spine shows a large [id number] cm pseudomeningocoele with direct communication to the [...] Blair Eren - 04/29/2010 3:54 PM CDT [facility] Emergency Department Visit Note Chief Complaint: HEADACHE--ED Hx of thoracic ependymoma S/P resection in 8028-5484 and radiation therapy s/p cyber knife s/p [...] grossly without deficit. Medical Decision Making: Dictation: [id number] Condition on disposition: Stable Manfred Blair MD [...] t-5) on April 11. Was seen in [place] last pm and had CT, IV's and [...] are i n the results section. CYTOLOGY, NON-BRICK CLEANER Routine 05/09/2010 1:00 PM Resu lts for [...] P athologist Signature Coag Hold Held in [facility] Coag Rack for 8 hours Specimen Anatomical Collection Method Collection Time Receive d Time (Source) Location / / Volume Laterality 05/13/2010 6:40 AM 0 7:05 CDT AM CDT Maurice Baron MD LAB_1 Performing Organization Address City/State/ZIP Code Phon e Number [address] [address] [place], [place] [phone] (ABNORMAL) INR/PROTIME (05/13/2010 6:40 AM CDT) athologist Signature Protime 17.0 (H) 12.0 - 14.5 [facility] sec INR 1.4 [facility] Specimen Anatomical Collection Method Collection Time Receive d Time (Source) Location / / Volume Laterality 05/13/2010 6:40 AM 0 7:05 CDT AM CDT Maurice Baron MD LAB_1 Performing Organization Address City/State/ZIP [facility] Phon e Number [address] [address] [place], [place] [phone] GLUCOSE, WHOLE BLOOD POC (05/12/2010 9:26 PM CDT) athologist Signature Glucose, Whole 138 70 - 180 [facility] Blood mg/dl Comment: Point of Care Testing RN Notified Specimen Anatomical Collection Method Collection Time Receive d Time (Source) Location / / Volume Laterality 05/12/2010 9:26 PM 0 9:32 CDT PM CDT Maurice Baron MD LAB_1 Performing Organization Address City/[facility] Code Phon e Number [address] [address] [place], [place] [phone] GLUCOSE, WHOLE BLOOD POC (05/12/2010 5:32 PM CDT) athologist Signature Glucose, Whole 142 70 - 180 [facility] Blood mg/dl Comment: Point of Care Testing RN Notified Specimen Anatomical Collection Method Collection Time Receive d Time (Source) Location / / Volume Laterality 05/12/2010 5:32 PM 0 5:38 CDT PM CDT Maurice Baron MD LAB_1 Performing Organization Address City/[facility]/ZIP [facility] Phon e Number [address] [address] [place], [place] [phone] GLUCOSE, WHOLE BLOOD POC (05/12/2010 12:16 PM CDT) P athologist Signature Glucose, Whole 101 70 - 180 [facility] Blood mg/dl Comment: Point of Care Testing RN Notified Specimen Anatomical Collection Method Collection Time Receive d Time (Source) Location / / Volume Laterality 05/12/2010 12:16 05/12/2010 PM CDT 12:34 PM CDT Maurice Baron MD LAB_1 Performing Organization Address [facility] Phon e Number [address] [address] [place], [place] [phone] GLUCOSE, WHOLE BLOOD POC (05/12/2010 8:17 AM CDT) P athologist Signature Glucose, Whole 129 70 - 180 [facility] Blood mg/dl Comment: Point of Care Testing RN Notified Specimen Anatomical Collection Method Collection Time Receive d Time (Source) Location / / Volume Laterality 05/12/2010 8:17 AM 0 CDT 11:58 AM CDT Maurice Baron MD LAB_1 Performing Organization Address City/[facility]/ZIP Code Phon e Number [address] [address] [place], [place] [phone] GLUCOSE, WHOLE BLOOD POC (05/11/2010 6:53 PM CDT) P athologist Signature Glucose, Whole 119 70 - 180 [facility] Blood mg/dl Comment: Point of Care Testing RN Notified Specimen Anatomical Collection Method Collection Time Receive d Time (Source) Location / / Volume Laterality 05/11/2010 6:53 PM 0 6:56 CDT PM CDT Maurice Baron MD LAB_1 Performing Organization Address City/[facility] Phon e Number [address] [address] [place], [place] [phone] GLUCOSE, WHOLE BLOOD POC (05/11/2010 12:03 PM CDT) P athologist Signature Glucose, Whole 133 70 - 180 [facility] Blood mg/dl Comment: Point of Care Testing RN Notified Specimen Anatomical Collection Method Collection Time Receive d Time (Source) Location / / Volume Laterality 05/11/2010 12:03 05/11/2010 2:02 PM CDT PM CDT Maurice Baron MD LAB_1 Performing Organization Address [facility] Phon e Number [address] [address] [place], [place] [phone] URINE CULTURE (05/11/2010 10:44 AM CDT) Gazzang Method Time Signature Specimen Urine [facility] Description Special Unspecified [facility] Requests Culture No Growth After [facility] 1 Day Report Status Final [facility] 05/12/2010 Specimen Anatomical Collection Method Collection Time Receive d Time (Source) Location / / Volume Laterality 05/11/2010 10:44 05/11/2010 1:09 AM CDT PM CDT Maurice Baron MD LAB_1 Performing Organization Address [facility] Phon e Number [address] [address] [place], [place] [phone] (ABNORMAL) UA CONDITIONAL UC (05/11/2010 10:44 AM CDT) Gazzang Method Time Signature Urine Color None [facility] Urine Clarity Clear [facility] Specific 1.004 (L) 1.005 - [facility] [place],Ur 1.03 pH, Urine 6.0 4.5 - 8.0 [...] Kiko Powell MD LAB_1 Performing Organization Address [facility] Phon e Number [address] [address] [place], [place] [phone] GLUCOSE, WHOLE BLOOD POC (05/11/2010 8:09 AM CDT) P athologist Signature Glucose, Whole 111 70 - 180 [facility] Blood mg/dl Comment: Point of Care Testing RN Notified Specimen Anatomical Collection Method Collection Time Receive d Time (Source) Location / / Volume Laterality 05/11/2010 8:09 AM 0 2:01 CDT PM CDT Maurice Baron MD LAB_1 Performing Organization Address City/State/ZIP Code Phon e Number [address] [address] [place], [place] [phone] (ABNORMAL) HEMOGRAM/PLTS/DIFF (05/11/2010 6:00 AM CDT) Analysis [...] Lymph 20 17 - 43 % REGIONS Dunn 8 4 - 12 % REGIONS Eos 1 0 - 8 % REGIONS Baso 0 0 - 1 % REGIONS Neutrophil 4.7 1.8 - 7.7 REGIONS Absolute k/ul Lymph Absolute 1.3 1.0 - 4.8 REGIONS k/ul Dunn Absolute 0.5 0.1 - 0.7 REGIONS k/ul Eos Absolute 0.1 0.0 - 0.5 REGIONS k/ul Baso Absolute 0.0 0.0 - 0.2 REGIONS k/ul Specimen Anatomical Collection Method Collection Time Receive d Time (Source) Location / / Volume Laterality 05/11/2010 6:00 AM 0 6:53 CDT AM CDT Kiko Powell MD LAB_1 Performing Organization Address City/State/ZIP Code Phon e Number [address] [address] [place], [place] [phone] GLUCOSE, WHOLE BLOOD POC (05/10/2010 9:32 PM CDT) P athologist Signature Glucose, Whole 129 70 - 180 REGIONS Blood mg/dl Comment: Point of Care Testing RN Notified Specimen Anatomical Collection Method Collection Time Receive d Time (Source) Location / / Volume Laterality 05/10/2010 9:32 PM 0 9:37 CDT PM CDT Maurice Baron MD LAB_1 Performing Organization Address City/[facility]/ZIP Code Phon e Number [address] [address] [place], [place] [phone] GLUCOSE, WHOLE BLOOD POC (05/10/2010 5:16 PM CDT) P athologist Signature Glucose, Whole 118 70 - 180 REGIONS Blood mg/dl Comment: Point of Care Testing RN Notified Specimen Anatomical Collection Method Collection Time Receive d Time (Source) Location / / Volume Laterality 05/10/2010 5:16 PM 0 5:21 CDT PM CDT Maurice Baron MD LAB_1 Performing Organization Address City/[facility]/ZIP Code Phon e Number [address] [address] [place], [place] [phone] GLUCOSE, WHOLE BLOOD POC (05/10/2010 12:10 PM CDT) P athologist Signature Glucose, Whole 103 70 - 180 REGIONS Blood mg/dl Comment: Point of Care Testing RN Notified Specimen Anatomical Collection Method Collection Time Receive d Time (Source) Location / / Volume Laterality 05/10/2010 12:10 05/10/2010 PM CDT 12:24 PM CDT Maurice Baron MD LAB_1 Performing Organization Address City/State/ZIP Code Phon e Number [address] [address] [place], [place] [phone] (ABNORMAL) UA WITH MICROSCOPIC (05/10/2010 11:30 AM CDT) [facility] gist Method Time Signature Urine Color Yellow REGIONS Urine Clarity Hazy REGIONS Specific 1.013 1.005 - REGIONS [place],Ur 1.03 pH, Urine 5.5 4.5 - 8.0 [...] Kiko Powell MD LAB_1 Performing Organization Address City/[facility] Phon e Number [address] [address] [place], [place] [phone] GLUCOSE, WHOLE BLOOD POC (05/10/2010 7:42 AM CDT) athologist Signature Glucose, Whole 107 70 - 180 REGIONS Blood mg/dl Comment: Point of Care Testing RN Notified Specimen Anatomical Collection Method Collection Time Receive d Time (Source) Location / / Volume Laterality 05/10/2010 7:42 AM 0 8:12 CDT AM CDT Maurice Baron MD LAB_1 Performing Organization Address City/[facility] Phon e Number [address] [address] [place], [place] [phone] (ABNORMAL) BASIC METABOLIC PANEL (05/10/2010 6:26 AM [...] 6:26 AM 0 6:27 CDT AM CDT Jayan Ambriz MD LAB_1 Performing Organization Address [facility] Phon e Number [address] [address] [place], [place] [phone] GLUCOSE, WHOLE BLOOD POC (05/09/2010 9:36 PM CDT) athologist Signature Glucose, Whole 108 70 - 180 REGIONS Blood mg/dl Comment: Point of Care Testing RN Notified Specimen Anatomical Collection Method Collection Time Receive d Time (Source) Location / / Volume Laterality 05/09/2010 9:36 PM 0 9:39 CDT PM CDT Maurice Baron MD LAB_1 Performing Organization Address City/[facility] Phon e Number [address] [address] [place], [place] [phone] GLUCOSE, WHOLE BLOOD POC (05/09/2010 5:36 PM CDT) athologist Signature Glucose, Whole 103 70 - 180 REGIONS Blood mg/dl Comment: Point of Care Testing RN Notified Specimen Anatomical Collection Method Collection Time Receive d Time (Source) Location / / Volume Laterality 05/09/2010 5:36 PM 0 9:39 CDT PM CDT Maurice Baron MD LAB_1 Performing Organization Address City/[facility] Phon e Number [address] [address] [place], [place] [phone] FUNGUS CULTURE,MISCELLANEOUS (05/09/2010 2:04 PM CDT) Component Value Ref Test Analysis Performed At [facility] gist Range Method Time Signature Specimen [...] Maurice Baron MD LAB_1 Performing Organization Address City/[facility] Code Phon e Number [address] [address] [place], [place] [phone] ANAEROBIC CULTURE (05/09/2010 2:04 PM CDT) Component Value Ref Test Analysis Performed At [facility] gist Range Method Time Signature Specimen Fluid REGIONS Description SUBCUTANEOUS Back Special Unspecified REGIONS Requests Aerobic Cult [id number] REGIONS Number Culture No Anaerobes REGIONS Isolated Report Status Final 05/17/2010 REGIONS Specimen Anatomical Collection Method Collection Time Receive d Time (Source) Location / / Volume Laterality 05/09/2010 2:04 PM 0 2:21 CDT PM CDT Maurice Baron MD LAB_1 Performing Organization Address City/[facility] Phon e Number [address] [address] [place], [place] [phone] AEROBIC CULTURE (05/09/2010 2:04 PM CDT) Component Value Ref Test Analysis Performed At [facility] gist Range Method Time Signature Specimen Fluid [...] Maurice Baron MD LAB_1 Performing Organization Address [facility] Phon e Number [address] [address] [place], [place] [phone] (ABNORMAL) CSF TOTAL PROTEIN (05/09/2010 1:00 PM CDT) [facility] Method Time Signature Source Cerebrospinal REGIONS Fluid Total 247 (H) 12 - 60 REGIONS Protein, CSF mg/dl Comment: The use if this assay to monitor or diag nose patients has not been approved for this specimen type by the FDA or it security manager of this assay. Specimen Anatomical Collection Method Collection Time Receive d Time (Source) Location / / Volume Laterality 05/09/2010 1:00 PM 0 3:14 CDT PM CDT Maurice Baron MD LAB_1 Performing Organization Address [facility] Phon e Number [address] [address] [place], [place] [phone] (ABNORMAL) CSF, GLUCOSE (05/09/2010 1:00 PM CDT) [facility] Method Time Signature Source Cerebrospinal REGIONS Fluid Glucose, CSF 34 (L) 40 - 70 REGIONS mg/dl Specimen Anatomical Collection Method Collection Time Receive d Time (Source) Location / / Volume Laterality 05/09/2010 1:00 PM 0 3:14 CDT PM CDT Maurice Baron MD LAB_1 Performing Organization Address [facility] Phon e Number [address] [address] [place], [place] [phone] (ABNORMAL) FIRST CSF CELL COUNT & DIFF (05/09/2010 1:00 PM CDT) Component Value Ref Test Analysis Performed At [facility] [place] Method Time Signature Source Cerebrospinal REGIONS Fluid [...] Maurice Baron MD LAB_1 Performing Organization Address [facility] Phon e Number [address] [address] [place], [place] [phone] CYTOLOGY, NON-BRICK CLEANER (FLUIDS, URINE, SPUTUM) (05/09/2010 1:00 PM CDT) [facility] Method Time Signature Cytology, (NOTE) REGIONS Body Fluid Non-Sales Marketing Manager Cytology Report Patient Name: JIE CULLEN Taken: 05/09/2010 Received: 05/09/2010 Reported: 05/09/2010 Physician(s): MAURICE BARON ([id number]) ? Final Cytologic Diagnosis Cerebrospinal Fluid: ?Satisfactory [...] Maurice Baron MD LAB_1 Performing Organization Address City/[facility] Code Phon e Number [address] [address] [place], [place] [phone] FUNGUS CULTURE,MISCELLANEOUS (05/09/2010 1:00 PM CDT) Component Value Ref Test Analysis Performed At [facility] Range Method Time Signature Specimen Cerebrospinal REGIONS Description Fluid Special Unspecified REGIONS Requests Fungus Smear Nola Ink REGIONS Preparation Negative Culture No Fungus REGIONS Isolated Report Status Final 06/05/2010 REGIONS Specimen Anatomical Collection Method Collection Time Receive d Time (Source) Location / / Volume Laterality 05/09/2010 1:00 PM 0 1:13 CDT PM CDT Maurice Baron MD LAB_1 Performing Organization Address [facility] Phon e Number [address] [address] [place], [place] [phone] ANAEROBIC CULTURE (05/09/2010 1:00 PM CDT) Component Value Ref Test Analysis Performed At [facility] Range Method Time Signature Specimen Cerebrospinal REGIONS Description Fluid Special Unspecified REGIONS Requests Aerobic Cult [id number] REGIONS Number Culture No Anaerobes REGIONS Isolated Report Status Final 05/17/2010 REGIONS Specimen Anatomical Collection Method Collection Time Receive d Time (Source) Location / / Volume Laterality 05/09/2010 1:00 PM 0 1:13 CDT PM CDT Maurice Baron MD LAB_1 Performing Organization Address [facility] Phon e Number [address] [address] [place], [place] [phone] SPINAL FLUID CULTURE & SMEAR (05/09/2010 1:00 PM CDT) Component Value Ref Test Analysis Performed At [facility] Range Method Time Signature Specimen Cerebrospinal REGIONS [...] Maurice Baron MD LAB_1 Performing Organization Address City/[facility]/ZIP [facility] Phon e Number [address] [address] [place], [place] [phone] FUNGUS CULTURE,MISCELLANEOUS (05/09/2010 1:00 PM CDT) [facility] Method Time Signature Specimen Aspirate REGIONS Description [...] Maurice Baron MD LAB_1 Performing Organization Address [facility]/ZIP [facility] Phon e Number [address] [address] [place], [place] [phone] ANAEROBIC CULTURE (05/09/2010 1:00 PM CDT) Patholo [...] Maurice Baron MD LAB_1 Performing Organization Address City/[facility]/ZIP [facility] Phon e Number [address] [address] [place], [place] [phone] AEROBIC CULTURE (05/09/2010 1:00 PM CDT) [facility] Method Time Signature Specimen Fluid REGIONS Description [...] Maurice Baron MD LAB_1 Performing Organization Address City/[facility]/ZIP Code Phon e Number [address] [address] [place], [place] [phone] APTT (ACTIVATED PARTIAL THROMBOPLASTIN TIME (05/09/2010 7:05 AM CDT) athologist Signature PTT 28.6 24.0 - 37.0 REGIONS sec Specimen Anatomical Collection Method Collection Time Receive d Time (Source) Location / / Volume Laterality 05/09/2010 7:05 AM 0 7:09 CDT AM CDT Authorizing Provider Result Yuliet Baron MD LAB_1 Performing Organization Address [facility] Phon e Number [address] [address] [place], [place] [phone] ABO Rh & Antibody Screen (Type & Screen) (05/09/2010 4:00 AM CDT) [facility] gist Method Time Signature Crossmatch 05/12/2010 REGIONS Expires ABO/RH(D) A NEGATIVE REGIONS Antibody NEGATIVE REGIONS Screen Specimen Anatomical Collection Method Collection Time Receive d Time (Source) Location / / Volume Laterality 05/09/2010 4:00 AM 0 4:01 CDT AM CDT Maurice Baron MD LAB_1 Performing Organization Address [facility] Phon e Number [address] [address] [place], [place] [phone] (ABNORMAL) APTT (ACTIVATED PARTIAL THROMBOPLASTIN TIME (05/09/2010 3:59 AM CDT) athologist Signature PTT >180.0 (HH) 24.0 - 37.0 REGIONS sec Comment: Critical value checked, given to and sam d back by Swathi GARRETT RN [id number] Specimen Anatomical Collection Method Collection Time Receive d Time (Source) Location / / Volume Laterality 05/09/2010 3:59 AM 0 4:00 CDT AM CDT Maurice Baron MD LAB_1 Performing Organization Address [facility] Phon e Number [address] [address] [place], [place] [phone] (ABNORMAL) INR/PROTIME (05/09/2010 3:59 AM CDT) athologist Signature Protime 17.7 (H) 12.0 - 14.5 REGIONS sec INR 1.4 REGIONS Specimen Anatomical Collection Method Collection Time Receive d Time (Source) Location / / Volume Laterality 05/09/2010 3:59 AM 0 4:00 CDT AM CDT Maurice Baron MD LAB_1 Performing Organization Address [facility] Phon e Number [address] [address] [place], [place] [phone] GOLD HOLD TUBE (OR RED/RIGGS) (05/08/2010 7:00 AM CDT) [facility] Method Time Signature Gold Hold Held in [facility] Tube Chemistry sample rack for 7 days Specimen Anatomical Collection Method Collection Time Receive d Time (Source) Location / / Volume Laterality 05/08/2010 7:00 AM 0 7:13 CDT AM CDT Maurice Baron MD LAB_1 Performing Organization Address City/[facility]/ZIP [facility] Phon e Number [address] [address] [place], [place] [phone] SODIUM, URINE RANDOM (05/08/2010 7:00 AM CDT) athologist Signature Sodium, Urine 143 mmol/L REGIONS Random Specimen Anatomical Collection Method Collection Time Receive d Time (Source) Location / / Volume Laterality Urine specimen 05/08/2010 7:00 AM 010 7:16 (specimen) CDT AM CDT Poonam Shafer MD LAB_1 Performing Organization Address City/[facility]/ZIP [facility] Phon e Number [address] [address] [place], [place] [phone] OSMOLALITY, URINE (05/08/2010 7:00 AM CDT) athologist Signature Osmolality, 342 REGIONS Urine Specimen Anatomical Collection Method Collection Time Receive d Time (Source) Location / / Volume Laterality Urine specimen 05/08/2010 7:00 AM 010 7:15 (specimen) CDT AM CDT Poonam Shafer MD LAB_1 Performing Organization Address [facility] Phon e Number [address] [address] [place], [place] [phone] OSMOLALITY (05/08/2010 7:00 AM CDT) P athologist Signature Osmolality 293 280 - 300 REGIONS mosm/kg Specimen Anatomical Collection Method Collection Time Receive d Time (Source) Location / / Volume Laterality 05/08/2010 7:00 AM 0 7:11 CDT AM CDT Maurice Baron MD LAB_1 Performing Organization Address [facility] Phon e Number [address] [address] [place], [place] [phone] (ABNORMAL) BASIC METABOLIC PANEL (05/08/2010 7:00 AM [...] Maurice Baron MD LAB_1 Performing Organization Address [facility]/ZIP [facility] Phon e Number [address] [address] [place], [place] [phone] (ABNORMAL) INR/PROTIME (05/08/2010 7:00 AM CDT) P athologist Signature Protime 18.2 (H) 12.0 - 14.5 REGIONS sec INR 1.5 REGIONS Specimen Anatomical Collection Method Collection Time Receive d Time (Source) Location / / Volume Laterality 05/08/2010 7:00 AM 0 7:11 CDT AM CDT Maurice Baron MD LAB_1 Performing Organization Address [facility] Phon e Number [address] [address] [place], [place] [phone] GLUCOSE, WHOLE BLOOD POC (2010 9:24 PM CDT) P athologist Signature Glucose, Whole 122 70 - 180 REGIONS Blood mg/dl Comment: Point of Care Testing RN Notified Specimen Anatomical Collection Method Collection Time Receive d Time (Source) Location / / Volume Laterality 2010 9:24 PM 0 9:27 CDT PM CDT Maurice Baron MD LAB_1 Performing Organization Address City/[facility] Phon e Number [address] [address] [place], [place] [phone] GLUCOSE, WHOLE BLOOD POC (2010 5:18 PM CDT) P athologist Signature Glucose, Whole 149 70 - 180 REGIONS Blood mg/dl Comment: Point of Care Testing RN Notified Specimen Anatomical Collection Method Collection Time Receive d Time (Source) Location / / Volume Laterality 2010 5:18 PM 0 5:39 CDT PM CDT Maurice Baron MD LAB_1 Performing Organization Address City/[facility] Phon e Number [address] [address] [place], [place] [phone] GLUCOSE, WHOLE BLOOD POC (2010 12:08 PM CDT) P athologist Signature Glucose, Whole 106 70 - 180 REGIONS Blood mg/dl Comment: Point of Care Testing RN Notified Specimen Anatomical Collection Method Collection Time Receive d Time (Source) Location / / Volume Laterality 2010 12:08 2010 PM CDT 12:15 PM CDT Maurice Baron MD LAB_1 Performing Organization Address [facility] Phon e Number [address] [address] [place], [place] [phone] GLUCOSE, WHOLE BLOOD POC (2010 7:27 AM CDT) P athologist Signature Glucose, Whole 107 70 - 180 REGIONS Blood mg/dl Comment: Point of Care Testing RN Notified Specimen Anatomical Collection Method Collection Time Receive d Time (Source) Location / / Volume Laterality 2010 7:27 AM 0 CDT 12:15 PM CDT Maurice Baron MD LAB_1 Performing Organization Address [facility] Phon e Number [address] [address] [place], [place] [phone] PHOSPHORUS (2010 6:05 AM CDT) P athologist Signature Phosphorus 3.7 2.5 - 4.5 REGIONS mg/dl Specimen Anatomical Collection Method Collection Time Receive d Time (Source) Location / / Volume Laterality 2010 6:05 AM 0 6:43 CDT AM CDT Maurice Baron MD LAB_1 Performing Organization Address [facility] Phon e Number [address] [address] [place], [place] [phone] MAGNESIUM (2010 6:05 AM CDT) P athologist Signature Magnesium 2.1 1.6 - 2.3 REGIONS mg/dl Specimen Anatomical Collection Method Collection Time Receive d Time (Source) Location / / Volume Laterality 2010 6:05 AM 0 6:43 CDT AM CDT Maurice Baron MD LAB_1 Performing Organization Address City/[facility]/ZIP [facility] Phon e Number [address] [address] [place], [place] [phone] (ABNORMAL) INR/PROTIME (2010 6:05 AM CDT) athologist Signature Protime 20.2 (H) 12.0 - 14.5 REGIONS sec INR 1.7 REGIONS Specimen Anatomical Collection Method Collection Time Receive d Time (Source) Location / / Volume Laterality 2010 6:05 AM 201 0 6:43 CDT AM CDT Maurice Baron MD LAB_1 Performing Organization Address [facility] Phon e Number [address] [address] [place], [place] [phone] (ABNORMAL) HEMOGRAM/PLTS (05/06/2010 11:00 PM CDT) athologist [...] Maurice Baron MD LAB_1 Performing Organization Address [facility] Phon e Number [address] [address] [place], [place] [phone] (ABNORMAL) BASIC METABOLIC PANEL (05/06/2010 11:00 PM [...] Maurice Baron MD LAB_1 Performing Organization Address [facility] Phon e Number [address] [address] [place], [place] [phone] GLUCOSE, WHOLE BLOOD POC (05/06/2010 9:06 PM CDT) athologist Signature Glucose, Whole 130 70 - 180 REGIONS Blood mg/dl Comment: Point of Care Testing RN Notified Specimen Anatomical Collection Method Collection Time Receive d Time (Source) Location / / Volume Laterality 05/06/2010 9:06 PM 0 9:10 CDT PM CDT Maurice Baron MD LAB_1 Performing Organization Address City/[facility] Phon e Number [address] [address] [place], [place] [phone] GLUCOSE, WHOLE BLOOD POC (05/06/2010 5:27 PM CDT) athologist Signature Glucose, Whole 127 70 - 180 REGIONS Blood mg/dl Comment: Point of Care Testing RN Notified Specimen Anatomical Collection Method Collection Time Receive d Time (Source) Location / / Volume Laterality 05/06/2010 5:27 PM 0 5:29 CDT PM CDT Maurice Baron MD LAB_1 Performing Organization Address City/[facility] Phon e Number [address] [address] [place], [place] [phone] GLUCOSE, WHOLE BLOOD POC (05/06/2010 11:56 AM CDT) P athologist Signature Glucose, Whole 132 70 - 180 REGIONS Blood mg/dl Comment: Point of Care Testing RN Notified Specimen Anatomical Collection Method Collection Time Receive d Time (Source) Location / / Volume Laterality 05/06/2010 11:56 05/06/2010 AM CDT 12:24 PM CDT Maurice Baron MD LAB_1 Performing Organization Address [facility] Phon e Number [address] [address] [place], [place] [phone] GLUCOSE, WHOLE BLOOD POC (05/06/2010 7:30 AM CDT) P athologist Signature Glucose, Whole 108 70 - 180 REGIONS Blood mg/dl Comment: Point of Care Testing RN Notified Specimen Anatomical Collection Method Collection Time Receive d Time (Source) Location / / Volume Laterality 05/06/2010 7:30 AM 0 8:09 CDT AM CDT Maurice Baron MD LAB_1 Performing Organization Address City/[facility]/ZIP Code Phon e Number [address] [address] [place], [place] [phone] (ABNORMAL) INR/PROTIME (05/06/2010 5:55 AM CDT) P athologist Signature Protime 19.9 (H) 12.0 - 14.5 REGIONS sec INR 1.6 REGIONS Specimen Anatomical Collection Method Collection Time Receive d Time (Source) Location / / Volume Laterality 05/06/2010 5:55 AM 0 6:00 CDT AM CDT Maurice Baron MD LAB_1 Performing Organization Address City/[facility]/ZIP Code Phon e Number [address] [address] [place], [place] [phone] GLUCOSE, WHOLE BLOOD POC (05/05/2010 8:53 PM CDT) P athologist Signature Glucose, Whole 145 70 - 180 REGIONS Blood mg/dl Comment: Point of Care Testing RN Notified Specimen Anatomical Collection Method Collection Time Receive d Time (Source) Location / / Volume Laterality 05/05/2010 8:53 PM 0 9:00 CDT PM CDT Maurice Baron MD LAB_1 Performing Organization Address City/[facility]/ZIP Code Phon e Number [address] [address] [place], [place] [phone] GLUCOSE, WHOLE BLOOD POC (05/05/2010 5:19 PM CDT) athologist Signature Glucose, Whole 125 70 - 180 REGIONS Blood mg/dl Comment: Point of Care Testing RN Notified Specimen Anatomical Collection Method Collection Time Receive d Time (Source) Location / / Volume Laterality 05/05/2010 5:19 PM 0 5:50 CDT PM CDT Maurice Baron MD LAB_1 Performing Organization Address City/[facility]/ZIP Code Phon e Number [address] [address] [place], [place] [phone] GLUCOSE, WHOLE BLOOD POC (05/05/2010 12:10 PM CDT) athologist Signature Glucose, Whole 137 70 - 180 REGIONS Blood mg/dl Comment: Point of Care Testing RN Notified Specimen Anatomical Collection Method Collection Time Receive d Time (Source) Location / / Volume Laterality 05/05/2010 12:10 05/05/2010 PM CDT 12:22 PM CDT Maurice Baron MD LAB_1 Performing Organization Address City/[facility]/ZIP Code Phon e Number [address] [address] [place], [place] [phone] GLUCOSE, WHOLE BLOOD POC (05/05/2010 7:43 AM CDT) P athologist Signature Glucose, Whole 108 70 - 180 REGIONS Blood mg/dl Comment: Point of Care Testing RN Notified Specimen Anatomical Collection Method Collection Time Receive d Time (Source) Location / / Volume Laterality 05/05/2010 7:43 AM 0 8:03 CDT AM CDT Maurice Baron MD LAB_1 Performing Organization Address [facility]/ZIP [facility] Phon e Number [address] [address] [place], [place] [phone] (ABNORMAL) INR/PROTIME (05/05/2010 6:15 AM CDT) athologist Signature Protime 21.4 (H) 12.0 - 14.5 REGIONS sec INR 1.8 REGIONS Specimen Anatomical Collection Method Collection Time Receive d Time (Source) Location / / Volume Laterality 05/05/2010 6:15 AM 0 6:21 CDT AM CDT Maurice Baron MD LAB_1 Performing Organization Address City/[facility]/ZIP Code Phon e Number [address] [address] [place], [place] [phone] VANCOMYCIN LEVEL (05/05/2010 6:15 AM CDT) athologist Signature Vancomycin 17.1 mcg/ml REGIONS Comment: Trough range: 10.0-20.0 Specimen Anatomical Collection Method Collection Time Receive d Time (Source) Location / / Volume Laterality Pre-infusion 05/05/2010 6:15 AM 0 6:21 CDT AM CDT Maurice Baron MD LAB_1 Performing Organization Address City/[facility]/ZIP [facility] Phon e Number [address] [address] [place], [place] [phone] (ABNORMAL) INR/PROTIME (05/04/2010 4:00 AM CDT) athologist Signature Protime 22.9 (H) 12.0 - 14.5 REGIONS sec INR 1.9 REGIONS Specimen Anatomical Collection Method Collection Time Receive d Time (Source) Location / / Volume Laterality 05/04/2010 4:00 AM 0 4:24 CDT AM CDT Maurice Baron MD LAB_1 Performing Organization Address City/[facility]/ZIP Code Phon e Number [address] [address] [place], [place] [phone] CREATININE / GFR (05/04/2010 4:00 AM CDT) athologist Signature Creatinine 0.70 0.66 - REGIONS 1.25 mg/dl GFR, Estimated >60.00 >60 REGIONS ml/min/1.7 3m2 GFR, Est., If >60.00 >60 REGIONS Black ml/min/1.7 3m2 Specimen Anatomical Collection Method Collection Time Receive d Time (Source) Location / / Volume Laterality 05/04/2010 4:00 AM 0 4:27 CDT AM CDT Maurice Baron MD LAB_1 Performing Organization Address City/[facility]/ZIP Code Phon e Number [address] [address] [place], [place] [phone] GLUCOSE, WHOLE BLOOD POC (05/03/2010 9:35 PM CDT) athologist Signature Glucose, Whole 111 70 - 180 REGIONS Blood mg/dl Comment: Point of Care Testing RN Notified Specimen Anatomical Collection Method Collection Time Receive d Time (Source) Location / / Volume Laterality 05/03/2010 9:35 PM 0 9:56 CDT PM CDT Maurice Baron MD LAB_1 Performing Organization Address City/[facility] Phon e Number [address] [address] [place], [place] [phone] VANCOMYCIN LEVEL (05/03/2010 5:45 PM CDT) athologist Signature Vancomycin 13.0 mcg/ml REGIONS Comment: Trough range: 10.0-20.0 Specimen Anatomical Collection Method Collection Time Receive d Time (Source) Location / / Volume Laterality Pre-infusion 05/03/2010 5:45 PM 0 5:47 CDT PM CDT Maurice Baron MD LAB_1 Performing Organization Address [facility] Phon e Number [address] [address] [place], [place] [phone] GLUCOSE, WHOLE BLOOD POC (05/03/2010 5:21 PM CDT) P athologist Signature Glucose, Whole 119 70 - 180 REGIONS Blood mg/dl Comment: Point of Care Testing RN Notified Specimen Anatomical Collection Method Collection Time Receive d Time (Source) Location / / Volume Laterality 05/03/2010 5:21 PM 0 9:56 CDT PM CDT Maurice Baron MD LAB_1 Performing Organization Address [facility] Phon e Number [address] [address] [place], [place] [phone] URINE CULTURE (05/03/2010 2:30 PM CDT) Component Value Ref Test Analysis Performed At [facility] Range Method Time Signature Specimen Urine REGIONS Description Cath/Bladder Special Unspecified REGIONS Requests Culture [id number] col/ml REGIONS Yeast No Further Identification Report Status Final 05/04/2010 REGIONS Specimen Anatomical Collection Method Collection Time Receive d Time (Source) Location / / Volume Laterality Urine specimen 05/03/2010 2:30 PM 010 4:00 (specimen) CDT PM CDT Zina Garcia MD LAB_1 Performing Organization Address [facility] Phon e Number [address] [address] [place], [place] [phone] (ABNORMAL) UA WITH MICROSCOPIC (05/03/2010 2:30 PM CDT) Patholo gist Method Time Signature Urine Color Yellow REGIONS Urine Clarity Clear REGIONS Specific 1.012 1.005 - REGIONS [place],Ur 1.03 pH, Urine 8.0 4.5 - 8.0 [...] Organization Address City/State/ZIP Code Phon e Number [address] [address] [place], [place] [phone] [place] VENOUS DUPLEX LOWER EXTREMITY BILATERAL (05/03/2010 [...] Maurice Baron MD LAB_1 Performing Organization Address City/[facility]/ZIP [facility] Phon e Number [address] [address] [place], [place] [phone] VANCOMYCIN LEVEL (05/01/2010 7:40 PM CDT) athologist Signature Vancomycin 11.1 mcg/ml REGIONS Comment: Trough range: 10.0-20.0 Specimen Anatomical Collection Method Collection Time Receive d Time (Source) Location / / Volume Laterality Pre-infusion 05/01/2010 7:40 PM 0 7:47 CDT PM CDT Trevin Salgado MD LAB_1 Performing Organization Address City/[facility] Phon e Number [address] [address] [place], [place] [phone] [place] FNA SUPERFICIAL (05/01/2010 2:50 PM CDT) [...] Component Value Ref Test Analysis Performed At [facility] gist Range Method Time Signature Specimen Drainage [...] ) Birgit ASKEW LAB_1 Performing Organization Address City/[facility]/ZIP [facility] Phon e Number [address] [address] [place], [place] [phone] ANAEROBIC CULTURE (05/01/2010 2:35 PM CDT) [facility] Method Time Signature Specimen Drainage REGIONS Description SUPERFICIAL BACK SEROMA Special Received in REGIONS Requests Anaport Vial Aerobic Cult [id number] REGIONS Number Culture No Anaerobes REGIONS Isolated Report Status Final REGIONS 05/08/2010 Specimen Anatomical Collection Method Collection Time Receive d Time (Source) Location / / Volume Laterality 05/01/2010 2:35 PM 0 3:43 CDT PM CDT Birgit ASKEW LAB_1 Performing Organization Address City/[facility]/ZIP [facility] Phon e Number [address] [address] [place], [place] [phone] XR PORTABLE CHEST 1 VIEW to verify [...] Organization Address City/State/ZIP Code Phon e Number [address] [address] [place], [place] [phone] (ABNORMAL) INR/PROTIME (05/01/2010 6:15 AM CDT) P athologist Signature Protime 28.5 (H) 12.0 - 14.5 REGIONS sec INR 2.5 REGIONS Specimen Anatomical Collection Method Collection Time Receive d Time (Source) Location / / Volume Laterality 05/01/2010 6:15 AM 0 6:19 CDT AM CDT Yomi Miller MD LAB_1 Performing Organization Address City/State/ZIP Code Phon e Number [address] [address] [place], [place] [phone] [place] LUMBAR PUNCTURE (FOR CSF) (04/30/2010 11:34 [...] Component Value Ref [facility] Method Time Signature Specimen Cerebrospinal REGIONS Description Fluid Special Unspecified REGIONS Requests Aerobic Cult [id number] REGIONS Number Culture No Anaerobes REGIONS Isolated Report Status Final 05/08/2010 REGIONS Specimen Anatomical Collection Method Collection Time Receive d Time (Source) Location / / Volume Laterality 04/30/2010 11:00 04/30/2010 AM CDT 12:15 PM CDT Yomi Miller MD LAB_1 Performing Organization Address [facility] Phon e Number [address] [address] [place], [place] [phone] (ABNORMAL) FIRST CSF CELL COUNT & DIFF (04/30/2010 11:00 AM CDT) [facility] Method Time Signature Source OTHER REGIONS (SPECIFY) [...] Zelalem Dick MD LAB_1 Performing Organization Address [facility] Phon e Number [address] [address] [place], [place] [phone] (ABNORMAL) SPINAL FLUID CULTURE & SMEAR (04/30/2010 11:00 AM CDT) Component Value Ref Test Analysis Performed At [facility] Method Time Signature Specimen Cerebrospinal REGIONS Description [...] Organization Address City/State/ZIP Code Phon e Number [address] [address] [place], [place] [phone] (ABNORMAL) CSF TOTAL PROTEIN (04/30/2010 11:00 AM CDT) [facility] Method Time Signature Source Cerebrospinal REGIONS Fluid Total 804 (H) 12 - 60 REGIONS Protein, CSF mg/dl Comment: The use if this assay to monitor or diag nose patients has not been approved for this specimen type by the FDA or it security manager of this assay. Specimen (Source) Anatomical Collection Method Collection Time Re ceived Time Location / / Volume Laterality Cerebrospinal fluid 04/30/2010 11:00 04/12 specimen (specimen) AM CDT 11:57 AM CDT eZlalem Dick MD LAB_1 Performing Organization Address [facility] Phon e Number [address] [address] [place], [place] [phone] (ABNORMAL) CSF, GLUCOSE (04/30/2010 11:00 AM CDT) Patholo gist Method Time Signature Source Cerebrospinal REGIONS Fluid Glucose, CSF 32 (L) 40 - 70 REGIONS mg/dl Specimen (Source) Anatomical Collection Method Collection Time Re ceived Time Location / / Volume Laterality Cerebrospinal fluid 04/30/2010 11:00 04/12 specimen (specimen) AM CDT 11:57 AM CDT Zelalem Dick MD LAB_1 Performing Organization Address [facility] Phon e Number [address] [address] [place], [place] [phone] Phosphorus (04/30/2010 6:19 AM CDT) P athologist Signature Phosphorus 3.6 2.5 - 4.5 REGIONS mg/dl Specimen Anatomical Collection Method Collection Time Receive d Time (Source) Location / / Volume Laterality 04/30/2010 6:19 AM 201 0 6:25 CDT AM CDT Yomi Miller MD LAB_1 Performing Organization Address [facility] Phon e Number [address] [address] [place], [place] [phone] Magnesium (04/30/2010 6:19 AM CDT) P athologist Signature Magnesium 1.9 1.6 - 2.3 REGIONS mg/dl Specimen Anatomical Collection Method Collection Time Receive d Time (Source) Location / / Volume Laterality 04/30/2010 6:19 AM 0 6:25 CDT AM CDT Yomi Miller MD LAB_1 Performing Organization Address [facility] Phon e Number [address] [address] [place], [place] [phone] (ABNORMAL) Basic Metabolic Panel (K, Na, CO2, [...] Yomi Miller MD LAB_1 Performing Organization Address [facility] Phon e Number [address] [address] [place], [place] [phone] (ABNORMAL) CBC, Platelets with Differential (04/30/2010 6:19 [...] 13 (L) 17 - 43 % REGIONS Dunn 7 4 - 12 % REGIONS Eos 0 0 - 8 % REGIONS Baso 0 0 - 1 % REGIONS Neutrophil 7.1 1.8 - 7.7 REGIONS Absolute k/ul Lymph Absolute 1.1 1.0 - 4.8 REGIONS k/ul Dunn Absolute 0.6 0.1 - 0.7 REGIONS k/ul Eos Absolute 0.0 0.0 - 0.5 REGIONS k/ul Baso Absolute 0.0 0.0 - 0.2 REGIONS k/ul Specimen Anatomical Collection Method Collection Time Receive d Time (Source) Location / / Volume Laterality 04/30/2010 6:19 AM 0 6:25 CDT AM CDT Yomi Miller MD LAB_1 Performing Organization Address [facility] Phon e Number [address] [address] [place], [place] [phone] MRSA ADMIT SCREEN (04/30/2010 1:45 AM CDT) Component Value Ref Test Analysis Performed At [facility] Range Method Time Signature Specimen Nose [...] Trevin Salgado MD LAB_1 Performing Organization Address [facility] Phon e Number [address] [address] [place], [place] [phone] XR ABDOMEN AP/OBLIQUES/LATERAL (04/30/2010 12:24 AM CDT) [...] EKG MR THORACIC SPINE WITH/WITHOUT CONTRAST (tell telephone quotation clerk and call Radiologist) (04/29/2010 8:10 PM CDT) Anatomical Region Laterality Modality Spine, T-Spine, L-Spine, C-Spine, Skeletal Magnetic Resonance Specimen (Source) Anatomical Collection Method Collection Time Re ceived Time Location / / Volume Laterality 04/29/2010 8:10 PM CDT Narrative 04/29/2010 8:30 PM CDT [facility] THORACIC SPINE MRI ? 04/29/2010 INDICATION: [...] cord. Procedure Note Julien Anna - 04/29/2010 [facility] THORACIC SPINE MRI 04/29/2010 INDICATION: Neck [...] Method Time Signature Gold Hold Held in [facility] Tube Chemistry sample rack for 7 days Specimen Anatomical Collection Method Collection Time Receive d Time (Source) Location / / Volume Laterality 04/29/2010 5:11 PM 0 5:23 CDT PM CDT Julian Fragoso MD LAB_1 Performing Organization Address [facility] Phon e Number [address] [address] [place], [place] [phone] COAG HOLD (BLUE TUBE) (04/29/2010 5:11 PM CDT) P athologist Signature Coag Hold Held in REGIONS Coag Rack for 8 hours Specimen Anatomical Collection Method Collection Time Receive d Time (Source) Location / / Volume Laterality 04/29/2010 5:11 PM 0 5:23 CDT PM CDT Julian Fragoso MD LAB_1 Performing Organization Address [facility] Phon e Number [address] [address] [place], [place] [phone] BB HOLD TUBE (REGIONS ONLY) (04/29/2010 5:11 PM CDT) [facility] Method Time Signature BB Hold Tube Blood Bank REGIONS save tube expires in 3 days Specimen Anatomical Collection Method Collection Time Receive d Time (Source) Location / / Volume Laterality 04/29/2010 5:11 PM 0 5:23 CDT PM CDT Julian Fragoso MD LAB_1 Performing Organization Address [facility]/ZIP [facility] Phon e Number [address] [address] [place], [place] [phone] BLOOD CULTURE SITE 1 (04/29/2010 5:11 PM CDT) [facility] Method Time Signature Specimen Blood REGIONS Description PERIPHERAL IV LINE Special Unspecified REGIONS Requests Culture No Growth After REGIONS 6 Days Report Status Final REGIONS 05/05/2010 Specimen Anatomical Collection Method Collection Time Receive d Time (Source) Location / / Volume Laterality Blood specimen 04/29/2010 5:11 PM 010 7:53 (specimen) CDT PM CDT (Peripheral IV Line) Zelalem Dick MD LAB_1 Performing Organization Address City/[facility] Phon e Number [address] [address] [place], [place] [phone] (ABNORMAL) Basic Metabolic Panel (04/29/2010 5:11 PM [...] Zelalem Dick MD LAB_1 Performing Organization Address [facility]/ZIP [facility] Phon e Number [address] [address] [place], [place] [phone] (ABNORMAL) HEMOGRAM/PLTS (04/29/2010 5:11 PM CDT) P [...] Zelalem Dick MD LAB_1 Performing Organization Address [facility] Phon e Number [address] [address] [place], [place] [phone] documented in this encounter Visit Diagnoses Diagnosis [...] 724.8 Other Symptoms Referable to Back ??? [address] CAREPLAN: BACLOFEN ??? 564.81 Neurogenic Bowel ??? [...] Mary Ann Dubose, PT Department number is [phone] Pager number is [phone] --- End of Report --- Initial Assessments - Romelia Abebe - 05/05/2010 10:[address] 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 Tax Assessor Collector Consult Recommended Cultural practices that affect patient care (per Best Care Questionnaire)?: No Abuse/Assault Screening: No evidence of assault or abuse Chemical Use Screening: No chemical use screening criteria applicable SAFETY Falls Risk Assessment Patient: All Other Patients (Click Here) Age: 0 History of Falls: 4 Cognition: 0 Elimination: 0 Physical Mobility: 4 (non weight bearing) Lines & Tubes: 1 Medications (CV or VP REVENUE CYCLE): 2 Falls Risk Score: (0-4 Low) (5-10 [...] constipation documented in this encounter Care Teams Business Services Tech Relationship Specialty Start Date End Date Unassigned, Provider PCP - General 11/28/01 05/21/[address] [place] [phone] documented as of this encounter
--- OUTSIDE RECORDS SUMMARY | 2022-07-04 15:17 | XMS_ITS | Encounter Summary ---
:1945 Author Organization [facility] Address [address], [place] [address] Care Team Providers Name Role Phone Unassigned, [...] on filedocumented in this encounter Care Teams Towboat Engineer Relationship Specialty Start Date End Date Unassigned, Provider PCP - General 11/28/01 05/21/[address] [place] [phone] documented as of this encounter
--- OUTSIDE RECORDS SUMMARY | 2022-07-04 15:17 | XMS_ITS | Encounter Summary ---
:1945 Author Organization [facility] Address [address] [place] [address] Care Team Providers Name Role Phone Unassigned, Provider Primary Care Provider Unavailable Encounter Details Date Type Department Care Team Description 04/29/2010 Correspondence [facility] Radiology, MRI SAFETY SHEET [address] [place] [address] Provider [place] [address] Social History Tobacco Use Types Packs/Day Years [...] on filedocumented in this encounter Care Teams Equipment Operat0R Relationship Specialty Start Date End Date Unassigned, Provider PCP - General 11/28/01 05/21/10 [address] [place] [address] documented as of this encounter
--- OUTSIDE RECORDS SUMMARY | 2022-07-04 15:17 | XMS_ITS | Encounter Summary ---
:1945 [facility] Address [address] [place] [address] Care Team Providers Name Role Phone Unassigned, Provider Primary Care Provider Unavailable Encounter Details Date Type Department Care Team Description 04/30/2010 Invasive Imaging [facility] [address] [place] [address] Social History Tobacco Use Types Packs/Day Years [...] time. IMPRESSION: Successful lumbar puncture. Yomi SAMSON ID documented in this encounter Visit Diagnoses Not on filedocumented in this encounter Care Teams Equine Science Instructor Relationship Specialty Start Date End Date Unassigned, Provider PCP - General 11/28/01 05/21/[address] [place] [address] documented as of this encounter
--- OUTSIDE RECORDS SUMMARY | 2022-07-04 15:17 | XMS_ITS | Encounter Summary ---
:1945 Author Organization [facility] Address [address] [place] [address] Care Team Providers Name Role Phone Unassigned, Provider Primary Care Provider Unavailable Encounter Details Date Type Department Care Team Description 04/30/2010 Consent for [facility] Radiology, INFORMED CONSENT Procedure/Treatme [address] [place] [address] [place] [address] Social History Tobacco Use Types Packs/Day Years [...] on filedocumented in this encounter Care Teams Crime Prevention Police Officer Relationship Specialty Start Date End Date Unassigned, Provider PCP - General 11/28/01 05/21/10 [address] [place] [address] documented as of this encounter
--- OUTSIDE RECORDS SUMMARY | 2022-07-04 15:18 | XMS_ITS | Encounter Summary ---
:1945 Author Organization [facility] Address [address], [place] [address] Care Team Providers Name Role Phone Unassigned, [...] on filedocumented in this encounter Care Teams Cuff Matcher Relationship Specialty Start Date End Date Unassigned, Provider PCP - General 11/28/01 05/21/[address] [place] [phone] documented as of this encounter
--- OUTSIDE RECORDS SUMMARY | 2022-07-04 15:18 | XMS_ITS | Encounter Summary ---
:1945 Author Organization [employer] Address [address], [place] [address] Care Team Providers Name Role Phone Unassigned, Provider Primary Care Provider Unavailable Encounter Details Date Type Department Care Team Description 04/11/2010 - Hospital S10 Maurice Baron Hypotension (Primary Dx); 04/20/2010 Encounter 640 Александр Saldivar MD Ependymoma; [place], [place] [address] Acute Respiratory Failure; [address] [place], [place] Tachycardia; [phone] [address] DVT (Deep Venous Thrombosis); [phone] Acute Blood [place] Anemia; (Work) HTN (Hypertension); [phone] Sinus Tachycard ia; (Fax) Personal Histor y [...] Discharge medications: 1. 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 Percocet 1-2 tabs [...] in Dr Baron clinic as scheduled at [address] [place] [address]. Patient also instructed [facility] clinic or hospital for any questions or concerns. Patient verbalizes understanding and states no further questions at this time. Scripts on chart Lucy Parker PA-C documented in this encounter Discharge Instructions Discharge InstructionsBernard Alcantar - 04/20/2010 11:20 AM CDT Images from the original note were not included. [address] [place] [address] Discharge Instructions for: Jie Cullen Thank you for choosing [facility] as your hospital. A copy [...] additional information about your medications, visit this AdmitSee website, [email or web address]. Current Discharge Medication List START taking these [...] Neurosurgery clinic with any concerns or changes. [phone] Regular Diet Clinic Referral CLINIC: [facility] [place]: Neurosurgery; [phone]; [address] [place] [address] DOCTORS NAME: Dr. 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 Clinic Referral CLINIC: The [facility] Neuro-Oncology Department DOCTORS NAME: available physician WHEN TO BE SEEN: In 2-3 weeks REASON FOR APPOINTMENT: discuss chemotherapy options for recurrent ependymomaContact information:Telephone number: Patient ID number: [id number] DISCHARGE INSTRUCTIONS TO PATIENT Your blood pressure [...] wound and fever greater than 101.5 degrees [facility] Community Resources NONE Contact Information [address] [address] For questions about your discharge instructions call the nursing unit : s10 Emergency & Urgently Needed Care: For emergencies call 911 and/or get medical help right away. If you are a [facility] member and have medical needs after clinic hours you may call the CareLineat [phone] or . All medical devices (telemetry/IV/etc) unless otherwise ordered, have been removed before discharge. Smoking and second-hand smoke exposure: Smoking damages blood vessels, reduces the oxygen in your blood and makes your heart beat too fast. If you smoke you should quit. Everyone should avoid second- hand smoke. If you would like further assistance after your discharge, please contact [phone] or visit [email or web address] Qu[employer] can offer further [...] understand my discharge instructions: Jie Cullen (or Hydrochloric Acid Operator) documented in this encounter Medications at [...] Elaine Brown - 04/20/2010 12:38 PM CDT [facility] Care Management Discharge Note Admission Date/Time: 04/11/2010 11:22 AM Attending MD: Maurice Baron Discharge Plan: Anticipated Discharge Date: 04/20/2010 Anticipated Discharge Time: 1 pm Patient to be discharged: to Home. Patient to be accompanied by: spouse. Transportation arranged for discharge: family Patient/Family aware of transportation benefit. Discharge equipment needs and arrangements: family requests medical records be sent to pcp in [place]. I obtained the release of information form to be done and info to be sent to Dr. Loretta Mcmahan MD Followup: no further needs Discharge Disposition Code: 01: Discharged to home or self-care (routine discharge) Report completed by Elaine Brown RN, Pager Number [phone] --- End of Report --- Criselda Rodriguez - 04/20/2010 12:09 PM CDT [facility] Medicine Progress Note Date of service: [...] PMD for further management (Dr. Meadows at [facility]). Acute blood loss anemia. No hx of [...] patient for above problems Criselda Rodriguez PA-C [facility] Medicine [phone] 04/20/2010 Trudi Locke - 04/20/2010 8:26 AM CDT [facility] -Rehabilitation Ama Physical Therapy Missed Visit Physical Therapy attempted [...] Loretta Osman - 04/20/2010 6:15 AM CDT [facility] Progress Note (Nursing) Identify/Problem(s): GI fuction [...] Maradiaga RN - 04/19/2010 11:23 PM CDT [facility] Progress Note (Nursing) Identify/Problem(s): Constipation, skin [...] Criselda Rodriguez - 04/19/2010 4:32 PM CDT [facility] Medicine Progress Note Date of service: [...] patient for above problems Criselda Rodriguez PA-C [facility] [phone] 04/19/2010 Bernard Alcantar - 04/19/2010 4:08 PM CDT [facility] Progress Note (Nursing) Identify/Problem(s): Skin Desired [...] Veronica Christian - 04/19/2010 3:18 PM CDT [facility] Care Management Social Work Follow Up Note Admission Date/Time: 04/11/2010 11:22 AM Attending MD: Maurice Baron Data Chart reviewed; discussed with interdisciplinary team. Met throughout the day with patient, . Discussed case with RAND Lyman, Dr. Flores PM&R, RN. Planning for patient to have baclafin pump refilled with Dr. Hooper at [facility] in [place], probably tomorrow at 13:00. Planning to have in-home therapy with [facility], whom patient is familiar with. (# [phone]) (fax# [phone]). Orders faxed. First appt is Saturday at 14:00. Cancelled referral to [facility]. Patient will get INRs drawn at [...] and communication. Has w/c van here in [place] now, and will take patient home tonight if medically stable, else go home tomorrow. Updated Plan of Care Anticipated Discharge Date: today or tomorrow Anticipated Discharge Plan: Home with home PT Plan for Follow Up: Will follow for any further d/c needs if still here tomorrow. Report completed by Veronica Christian [facility], Pager Number [phone] (W, TH, F) --- End of Report --- Veronica Christian - 04/19/2010 2:54 PM CDT [facility] Transfer Orders to Home Health Care Patient Name: Jie Cullen Date of : 1945 Allergies: Review of patient's allergies indicates no known allergies. Immunizations: Most Recent Immunizations Administered Date(s) Administered ??? Flu Vac (3+ yrs) 10/06/2009 ??? H1n1 Miv Csl 3+ Yr (Injected) 12/06/2009 ??? Pneumococcal, PPSV23 10/06/2009 Current Attending Provider: Maruice Baron MD Discharge Procedure Orders Call the [...] Neurosurgery clinic with any concerns or changes. [phone] Regular Diet Clinic Referral Order Comments: CLINIC: [facility]: Neurosurgery; [phone]; [address] [place] [address] DOCTORS NAME: Dr. Baron WHEN TO BE SEEN: On (date) April 27 at 10:20 REASON FOR APPOINTMENT: MD follow up Physical Therapy (PT) Referral Order Comments: EVALUATE AND TREAT Occupational Therapy (OT) Referral Order Comments: EVALUATE AND TREAT Discharge Diagnosis Order Comments: S/p resection of thoracic spine ependymoma Clinic Referral Order Comments: CLINIC: [facility] Neuro-Oncology Department DOCTORS NAME: available physician WHEN [...] have been electronically signed. (In accordance with [place] Fed. Regulation Set, Fed A0232 - Types [...] in ependymoma. Given where he lives, the [facility] is his best option. I spoke with the [facility] Neuro Oncology clinic this morning; unfortunately I was never able to talk directly to their on-call physician Dr. Alex. They would be happy to see Mr. 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 I gave his the following contact information to schedule an appointment when she feels sheis able to get him to [place]: [facility] Neuro Oncology Clinic Pt ID# [id number] I have added this information to his discharge orders and have asked the Process Analyst to aide ingetting patient a copy of his medical records and a CD of the imaging performed here to take with him. Hematology/Oncology will sign off now. If there are any further questions, please contact the on-call Hematology/Oncology fellow. Patient and plan discussed with Dr. Henry. Abby Ellsworth - 04/19/2010 11:23 AM CDT [facility] Occupational Therapy Missed Visit Treatment attempted today. Unable to start treatment due to: Spoke with pt and about further concerns. No further concernsneeded or questions. Possible d/c to home today with assistance from spouse. Agree with this. Will attempt treatment again if plan of care changes. . [facility] Mat[facility]Kateryna (pager) OT Dept #: [phone] - OT Weekend Pager #: [phone] - [facility] Main #: [phone] --- End of Report --- Trudi Locke - 04/19/2010 9:29 AM CDT [facility] IP Physical Therapy Progress Note PT Visit Room/Bed: [id number] Patient Seen: bedside Diagnosis: Encounter Diagnoses Code [...] 344.1 Paraplegia ??? 707.00F Pressure Ulcer ??? [address] CAREPLAN: BACLOFEN Pain: not bad per pt [...] minutes Trudi Locke PT Phone number is [phone] Pager: [phone] --- End of Report --- Supervisor [employer], Lucy Clemente - 04/19/2010 9:10 AM CDT [facility] NeuroSurgery Progress Note Pt doing well [...] Durand RN - 04/19/2010 7:22 AM CDT [facility] Progress Note (Nursing) Identify/Problem(s): [...] Maradiaga RN - 04/18/2010 10:28 PM CDT [facility] Progress Note (Nursing) Identify/Problem(s): Activity, skin [...] Martha Thomas - 04/18/2010 6:34 PM CDT [facility] PM&R Progress Note () Date of [...] Bernard Alcantar - 04/18/2010 2:37 PM CDT [facility] Progress Note (Nursing) Identify/Problem(s): [...] Trudi Locke - 04/18/2010 1:24 PM CDT [facility] Physical Therapy Progress Note PT Visit Room/Bed: [id number] Patient Seen: bedside Diagnosis: Encounter Diagnoses Code [...] minutes Trudi Locke PT Phone number is [phone] Pager: [phone] --- End of Report --- [employer], Lucy Clemente - 04/18/2010 1:21 PM CDT [...] Tania Brantley - 04/18/2010 1:10 PM CDT [facility] Care Management Access Consultant Follow Up Note Admission Date/Time: 04/11/2010 11:22 [...] would like pt's name on list at [facility] (ph: [phone], fx: [phone])in [place]. I made referral to this facility and [...] completed by Tania Brantley RN, Pager Number [phone] --- End of Report --- Tania Brantley - 04/18/2010 1:10 PM CDT [facility] Care Management Access Consultant Follow Up Note Admission Date/Time: 04/11/2010 11:22 [...] would like pt's name on list at [facility] (ph: [phone], fx: [phone])in [place]. I made referral to this facility and spoke with admission coordinator, Mer Simpson. She did not receive initial fax that was sent over via [employer], so I manually faxed paperwork to her [...] agency preference. I made a referral to [facility] ph: [phone] Fx: [phone]. Spoke with [place] in intake. Informed her pt may go to tcu but likely home care. Requested a visit for day after discharge. They can provide PT and SNV for incision check, skin assessment, vs, and inr draws. [place] will need call in am to confirm whether pt needs home care or not. Also received call back from Mer at [facility]. They have accepted pt for [...] up with primary rehab MD, Dr. Hooper ([place]) vs having her possibly do it on day of dc. Have not had a chance to discuss this with . Will try to have conversation in am. Updated Plan of Care Anticipated Discharge Date: 04/19/10 Anticipated Discharge Plan: tcu likely Plan for Follow Up: in am Report completed by Tania Brantley RN, Pager Number [phone] --- End of Report --- Abby Ellsworth - 04/18/2010 12:01 PM CDT [facility] Occupational Therapy Progress Note Treatment [...] Abby Ellsworth OTR/L (pager) OT Dept #: [phone] - OT Weekend Pager #: [phone] - Rehabilitation [facility] Main #: [phone] Addendum: issued pt a yellow theraband for pt to use in room and tubi sap trainer for w/c brakes. --- End of Report --- Criselda Rodriguez - 04/18/2010 10:18 AM CDT [facility] Progress Note Date of service: [...] patient for above problems Criselda Rodriguez PA-C [facility] [phone] 04/18/2010 Radha Long - 04/18/2010 4:24 AM CDT [facility] Progress Note (Nursing) Identify/Problem(s): Activity Pain [...] Devon Hylton - 04/17/2010 10:30 PM CDT [facility] Progress Note (Nursing) Identify/Problem(s): Pain/skin status [...] to monitor comfort and monitor skin status. Devno Hylton RN --- End of Report --- omelia Duckworth - 04/17/2010 4:42 PM CDT [facility] Progress Note (Nursing) Identify/Problem(s): Activity Neuro [...] Tania Brantley - 04/17/2010 2:05 PM CDT [facility] Care Management Access Consultant Initial Assessment Admission Date/Time: 04/11/2010 11:22 AM Attending MD: Maurice Baron Data Jie Cullen was referred to this Access Consultant for discharge planning. Chart reviewed, discussed with interdisciplinary team, as well as with patient and family. [facility] Site [191.9] (MALIG GANGA BRAIN NOS). Insurance: Payor: MEDICARE PART B ONLY [id number] Plan: MEDICARE PART B ONLY Product Type: Medicare Current Living Situation: Patient lives with their spouse. Support System: and children Services Involved: none, has been to [facility] in past Additional Data: Pt's primary MD is Dr. Loretta Mcmahan at the [facility] Coordination of Care and Referrals: Provided [...] completed by Tania Brantley RN, Pager Number [phone] --- End of Report --- Trudi Locke - 04/17/2010 1:23 PM CDT [facility] IP Physical Therapy Progress Note PT Visit Room/Bed: 96956/[id number] Patient Seen: bedside Diagnosis: Encounter Diagnoses Code [...] minutes. Trudi Locke, PT Phone number is [phone] Pager: [phone] --- End of Report --- Abby Ellsworth - 04/17/2010 11:54 AM CDT [facility] Occupational Therapy Progress Note Treatment Summary: [...] Abby Ellsworth OTR/L (pager) OT Dept #: [phone] - OT Weekend Pager #: [phone] - [facility] Main #: [phone] --- End of Report --- Criselda Rodriguez - 04/17/2010 11:45 AM CDT [facility] Medicine Progress Note Date of service: [...] patient for above problems Criselda Rodriguez PA-C [facility] [phone] 04/17/2010 [employer], Lucy Clemente - 04/17/2010 11:21 AM CDT [facility] NeuroSurgery Progress Note Did discuss with [...] need TCU placement. Did speak with Tania, supportive employment case manager. INR not therapeutic, continue with Lovenox until INR 2-3 Repeat INR tomorrow No BM, try MOM or dulcolax suppository that are ordered Can also give prunes or prune juice Keep pt off buttocks for too long Hgb 9.0, but pt doing well no need for transfusion Lucy Parker PA-C --- End of Report --- Loretta Osman - 04/17/2010 7:54 AM CDT [facility] Progress Note (Nursing) Identify/Problem(s): Pain Desired [...] Maradiaga RN - 04/16/2010 10:56 PM CDT [facility] Progress Note (Nursing) Identify/Problem(s): [...] Anthony Genao - 04/16/2010 3:38 PM CDT [facility] Medicine Progress Note (MD) Date of [...] Report Completed by: Gena Genao MD Pager: [phone] Loretta Osman - 04/16/2010 7:01 AM CDT [facility] Progress Note (Nursing) Identify/Problem(s): Comfort Desired Outcome(s): Pt will be comfortable Evaluation: Pt did not request pain medication all night. Repositioned Q2 prn. Alert and oriented. VSS. No further episodes of confusion. Plan: Discuss plan of care. Loretta Osman RN --- End of Report --- Amanda Toledo - 04/15/2010 7:49 PM CDT [facility] Progress Note (Nursing) Identify/Problem(s): Pain management. [...] Amanda Lindsay - 04/15/2010 7:28 PM CDT [facility] MD Notified Note Name of MD [...] Ayon, LARISA - 04/15/2010 12:41 PM CDT [facility] IP Physical Therapy Progress Note SAXOPHONE TEACHER Visit Number 1 04/15/2010 Room/Bed: [facility]/[id number] Patient Seen: bedside Diagnosis: Encounter Diagnoses Code [...] A of 3 and extra time. This customs entry writer left to work with another pt, and [...] minutes Amira Ayon PTA Phone number is [phone] Pager: [phone] --- End of Report --- Esmer Richardson - 04/14/2010 10:19 PM CDT [facility] Progress Note (Nursing) Identify/Problem(s): Pain activity Desired Outcome(s): Pt will have adequate pain control Pt will have increased activity Evaluation: VSS, continues to be hypotensive and slightly tachy, tolerating reg diet, dangled at side of bed with assist of 2, [employer] rep came to see pt and refit [...] SkylaJonesangelina Kathleen - 04/14/2010 4:55 PM CDT [facility] Complementary Care Therapy Note Complementary Care [...] s10. Prior to entering the room, this customs entry writer reviewed the patient's chart, and consulted with the patient's nurse. Upon entering the room, this customs entry writer introduced herself, explained massage therapy, and asked [...] Massage ends when brace man arrives. This customs entry writer informs RN of pt's report that R arm is falling asleep. Plan Complementary Care Therapies are available to this patient while an inpatient, as schedule allows. Thank you for referring this patient to Complementary Care Therapies. Report Completed by: SIMON Garcia --- End of Report --- Tania Brantley - 04/14/2010 4:06 PM CDT [facility] Access Consultant Progress Note Data: Attempted to meet with [...] OT [facility] as at present he [...] the weekend. [facility] Need to discuss with pt and , have not been able to reach and pt too sedated for conversation at this time. Follow up on Saturday. Report completed by Tania Brantley RN, Pager Number [phone] --- End of Report --- Carlene Silver RN - 04/14/2010 3:36 PM CDT Problem: Falls Risk Goal: Moderate Risk (5-10): Fall Prevention I applied all active moderate risk falls prevention interventions. AT Carlene Silver RN - 04/14/2010 3:00 PM CDT [facility] Progress Note (Nursing) Identify/Problem(s): Pain. Activity. [...] Cecile Browne - 04/14/2010 1:34 PM CDT [facility] Progress Note Date of Service: [...] for further management with Ependymoma CORINA LeeC [facility] [phone] Total time spent was 35 mintues, >50% was in direct pt contact and C&C of the above issues. Trudi Locke - 04/14/2010 12:54 PM CDT [facility] IP Physical Therapy Progress Note PT Visit Room/Bed: 43154/2739313 Patient Seen: bedside Diagnosis: Encounter Diagnoses Code [...] in R LE per pt report. This customs entry writer spoke with nursing who received clarification that [...] minutes Trudi Locke PT Phone number is [phone] Pager: [phone] --- End of Report --- Abby Ellsworth - 04/14/2010 12:07 PM CDT [facility] Occupational Therapy Progress Note Treatment Summary: [...] Abby Ellsworth OTR/L (pager) OT Dept #: [phone] - OT Weekend Pager #: [phone] - [facility] Main #: [phone] --- End of Report --- Archana Pace - 04/14/2010 11:20 AM CDT [facility] Side [facility] Department Progress Note Turntable Operator Notes: Ongoing supportive visit with Heather this [...] after his surgery. They continue to appreciate vice president payment presence, support and prayers as well as topper packer visits. Plan: Side Hemmer remains available to pt and/or family for spiritual and emotional support as needed or requested. Report Completed by: Archana Pace, [facility] Staff Turntable Operator --- End of Report --- Brittny Jasso - 04/14/2010 9:59 AM CDT [facility] NeuroSurgery Progress Note Date: 04/14/2010 Vitals Temp (24hrs), Min:97.9 ??F (36.6 ??C), Max:98.7 ??F (37.1 ??C) No Data Recorded Exam Diaphoretic this AM. Has just been working on IS. Denies chills. Awake, alert. No change in neuro exam. Bilateral shoulder soreness persists but is improved from yesterday. D Ela Cruz in place. Working with PT/OT. Started [...] RN, ACNS-, CNRN Neuroscience Clinical Nurse Specialist [phone] --- End of Report --- Maurice Baron - 04/14/2010 9:59 AM CDT I have examined the patient and reviewed the plan of care and agree with the previous note. Maurice Baron MD 04/14/2010, 11:19 AM Halina Curry RN - 04/14/2010 4:42 AM CDT [facility] Progress Note (Nursing) Identify/Problem(s): Hypotensive and tachycardic Desired Outcome(s): Pt vitals will be stable for patient Evaluation: Pt BP is 105/64 and HR 115. Pt taken off Lasix and Vitals have been lower than this on previous shifts. Plan: Continue to monitor pt vitals. Discussed plan of care with patient. Halina Curry RN --- End of Report --- Halina Curyr RN - 04/14/2010 2:34 AM CDT Problem: Falls Risk Goal: Moderate Risk (5-10): Fall Prevention I applied all active moderate risk falls prevention interventions. Esmer Richardson - 04/13/2010 10:37 PM CDT [facility] Progress Note (Nursing) Identify/Problem(s): Hypotension Tachycardic [...] Silver RN - 04/13/2010 3:00 PM CDT [facility] Progress Note (Nursing) Identify/Problem(s): [...] Tania Brantley - 04/13/2010 2:01 PM CDT [facility] Care Management Missed Visit Admission Date/Time: [...] will likely be safe to return home. Access Consultant will attempt to follow up with patient/family in am vs later today. Report completed by Tania Brantley RN, Pager Number [phone] --- End of Report --- Trudi Locke - 04/13/2010 1:35 PM CDT [facility] IP Physical Therapy Progress Note PT Visit Room/Bed: 11819/[id number] Patient Seen: bedside Diagnosis: Encounter Diagnoses Code [...] minutes Trudi Locke PT Phone number is [phone] Pager: [phone] --- End of Report --- Brittny Jasso - 04/13/2010 11:52 AM CDT [facility] NeuroSurgery Elective Spine Progress Note Date: [...] RN, ACNS-, CNRN Neuroscience Clinical Nurse Specialist [phone] --- End of Report --- Maurice Baron - 04/13/2010 11:52 AM CDT I have examined the patient and reviewed the plan of care and agree with the previous note. Maurice Baron MD 04/14/2010, 11:19 AM Martha Thomas - 04/13/2010 10:03 AM CDT [facility] PM&R Progress Note () Date of [...] Last change on 04/13/2010 Pump serial number: [id number] Infusion drug: Baclofen Concentration: 1,000 mcg/ml Infusion mode: simple continuous Dose per day: increased by 10% to 249.8 mcg/day [place] volume 4.4 ml Low reservoir alarm volume [...] Radha Long - 04/13/2010 6:27 AM CDT [facility] Progress Note (Nursing) Identify/Problem(s): [...] Radha Long - 04/13/2010 2:58 AM CDT [facility] MD Notified Note Name of MD [...] Esmer Richardson - 04/12/2010 10:48 PM CDT [facility] Progress Note (Nursing) Identify/Problem(s): pain Desired [...] Ephraim Cai - 04/12/2010 2:53 PM CDT [facility] Progress Note (Nursing) Identify/Problem(s): Pain control,finger [...] Johan Montenegro - 04/12/2010 2:36 PM CDT [facility] EMERGENCY PHYSICIAN NOTE - The patient received the Sacrament of the Sick (anointing) today. SHANNON Bloanos Archana Pace - 04/12/2010 2:35 PM CDT [facility] Side Hemmer Department Progress Note Reason for Visit Initial assessment for spiritual and emotional support needs for pt/family during this hospitalization. Pt is post-op day 1 from spine surgery. He is experiencing some pain this afternoon which RN is working on getting under control. Pt has had multiple surgeries for the same issue. Patient/Family Pt/ live in [place], [place]. stayed at the hospital but may go home this evening. Other visitors have been in/out to see pt. Resources/Support System Family, friends and lucia community provide a strong foundation for Jeff. Spiritual/Shinto Jeff is appreciative of prayers, they have notified their [employer] topper packer and pt would like to receivethe sacrament of the sick. Interventions Offered I offered supportive listening, presence, prayers for healing/strength, contacted the [facility] topper packer for the sacrament of the sick, informed pt/family of ongoing vice president payment availability. Coping Jeff is focused on his pain at this time so assessment is limited. Pt/family appear to be coping appropriately at this time; they have extensive experience from previous surgeries. Plan Side Hemmer will continue following for ongoing spiritual and emotional support to pt/family. Report completed by: Archana Pace, [facility] Staff Turntable Operator --- End of Report --- Britni Barfield - 04/12/2010 12:19 PM CDT Problem: Falls Risk Goal: Low Risk (0-4): Fall Prevention I applied all active low risk falls prevention interventions. Abby Ellsworth - 04/12/2010 11:22 AM CDT [facility] Occupational Therapy Missed Visit Evaluation attempted today. Unable to start evaluation due to: pt just extubated and on flat bedrest. Will attempt evaluation again as soon as possible. Abby Ellsworth OTR/L (pager) OT Dept #: [phone] - OT Weekend Pager #: [phone] - [facility] Main #: [phone] --- End of Report --- Trudi Locke - 04/12/2010 11:15 AM CDT [facility] Physical Therapy Missed Visit Physical Therapy attempted to see patient today, 04/12/2010, for evaluation. Unable to see patient forthis reason: Pt just extubated and on flat bedrest at all times. Will attempt again tomorrow. Trudi Locke, PT [phone] --- End of Report --- Trudi Locke - 04/12/2010 9:36 AM CDT [facility] Physical Therapy Missed Visit Physical Therapy attempted to see patient today, 04/12/2010, for evaluation. Unable to see patient forthis reason: test. Will attempt again as soon as possible. Trudi Locke PT [phone] --- End of Report --- Lucy Parker - 04/12/2010 8:30 AM CDT [facility] NeuroSurgery Progress Note Vitals Temp (24hrs), [...] Carolyn Wells - 04/12/2010 7:32 AM CDT [facility] SICU Critical Care Progress Note Date: [...] Exam: Regular rate and rhythm without murmur Professor Of Religion: NSR Heart Rate (24hrs), Pulse Av Min: [...] Blood drawing, Monitoring, IV access; Plan: Continue #2-[place] in Left, Radial; Day # 2; Indication: [...] Spenser Morocho - 04/12/2010 5:09 AM CDT [facility] Progress Note (Nursing) Identify/Problem(s): [...] Froilan Hardin - 04/11/2010 8:53 PM CDT [facility] Clinical Pharmacy Medication Reconciliation Note Medication [...] condition. PHARMACIST NAME: Froilan Hardin Phone/Pager #: [phone] --- End of Report --- Froilan Hardin - 04/11/2010 8:44 PM CDT [facility] Clinical Pharmacy Initial Kinetics Note Assessment: Jie Cullen, [id number], is a 64 yr year old male started on vancomycin 1g iv q 12h x 48h forpossible spinal infection pending intra-op culture results. Data: Last Height: 5' 10 (177.8 cm) Last Wt - Scale: 230 lb (104.327 kg) [place] Body Weight: 73 kg Dosing Weight: 85 [...] nsgy note). Froilan Hardin PharmD Pager Number: [phone] --- End of Report --- documented in this encounter Procedure Notes Maurice Baron - 04/12/2010 9:21 AM CDT DATE OF SURGERY: 04/11/2010 STAFF SURGEON: Maurice Baron MD RETAIL POS SPECIALIST: Lucy Parker PA ANESTHESIA: General. ESTIMATED BLOOD [...] discovered at T4-T5. [facility]. Within a [...] notedto be very prominent, creating a big takotna where the wound was sitting, so with this we could flatten each border of the takotna, which the patient achieved a much nicer [...] The patient was then returned to his [place] and taken stable, intubated, to the intensive care unit. The procedure was well-tolerated with no apparent complications. Needle and sponge counts correct and verified at the end of the case. Estimated blood loss was approximately 100-150 mL. No drains were placed. Maurice Baron MD sko Dictated: 04/12/2010 09:21:50 Transcribed: 04/12/2010 09:41:51 Doc #: [id number] cc:Maurice Baron MD, Referring Provider Yris Brownlee MD DO NOT SIGN UNLESS PRESENT FOR PROCEDURE I attest that I was present for and participated in the lee portions of this procedure(s) in compliance with the Health Care Financing Administration Teaching Physician Guidelines. 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 Baron needed the operative [...] Report --- [facility] ANESTHESIA, PROVIDER - 04/11/2010 12:00 AM CDT [facility] ANESTHESIA, PROVIDER - 04/11/2010 12:00 AM CDT [facility] ANESTHESIA, PROVIDER - 04/11/2010 12:00 AM CDT [facility], PROVIDER - 04/11/2010 12:00 AM CDTAssociated Order(s): EKG IP; EKG IP [facility] ANESTHESIA, PROVIDER - 04/11/2010 12:00 AM CDT [facility] ANESTHESIA, PROVIDER - 04/11/2010 12:00 AM CDT [facility] ANESTHESIA, PROVIDER - 04/11/2010 12:00 AM CDT documented in this encounter Consult Notes Jessica Garcia - 04/18/2010 1:07 PM CDTAssociated Order(s): WOUND/MANAGER AUDIO CONSULT; WOUND/MANAGER AUDIO CONSULT [facility] Wound/Ostomy Progress Note Reason for Consultation: [...] Health History: reviewed and noncontributory to the [facility] Social Health History: no smoking, no etoh [...] edema. I entered wound care orders in [facility]. Please contact the wound care service with any further questions or concerns. [phone]. Time spent with patient: 40 minutes with > 50% of time spent for education and coordination of care. 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 Patient was initially diagnosed with ependymoma in 1999 at [facility]. He underwent resection by Dr. [...] HPI Social History: . Lives with in [place], [place]. Denies tobacco, alcohol, or illicit drug [...] Will discuss further with neurooncology at the [facility]. Once patient recovers from the most recent surgery will schedule outpatient follow up with Dr. L[facility]. Patient and plan discussed with Dr. Loya. Report Completed by: Malathi Lopez MD Pager: [phone] Genny Loya - 04/14/2010 5:18 PM CDT I saw and examined the patient today. I agree with the findings and plan of care as documented in the note by Dr. Lopez. Genny Loya MD 04/14/2010 6:08 PM Cecile Browne - 04/13/2010 3:23 PM CDTAssociated Order(s): MEDICINE INPT CONSULT [facility] Medicine Consultation Note () Date of service: 04/13/2010 I was asked by Maurice Baron of [facility] to provide medical recommendations of this patient [...] IVFs. He denies significant medical history of [place], CVA, pulmonary, renal, GI, hepatic complications. He [...] 96% General Appearance: 64 yr male in [facility], sleeping on arrival lethargic during [...] Report Completed by: Cecile Browne PA-C Pager: [phone] Martha Thomas - 04/12/2010 7:47 PM CDT [facility] PM&R Consult Note () Date of service: 04/12/2010 I was asked by Maurice Kirk to evaluate Jie Cullen for eval ITB . Chief Complaint: S/p surgery eval pump Encounter Diagnoses Code Name Primary? 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 518.81 Acute Respiratory Failure 64yo male with known thoracic ependymoma admitted to [facility] on 04/11/2010 He was initially [...] Last change on 03/09/2010 Pump serial number: [id number] Infusion drug: Baclofen Concentration: 1,000 mcg/ml Infusion mode: simple continuous Dose per day: baclofen 225.6 mcg/day [place] volume 4.6 ml Low reservoir alarm volume [...] Yudith Sanders - 04/11/2010 10:04 PM CDT [facility] SICU Critical Care Progress Note Date: 04/11/2010 Date of service: 04/11/2010 Diagnosis: Thoracic empendymoma Maurice Baron XNeurosurgery 64 yr, male S/P: Radical resection of thoracic spinal cord tumor Post-Op Day: #0, ICU Day: #1 HPI/ROS: This 64 yo M with hx of spinal cord tumor presented to [facility] today for non-emergent tumorresection. He [...] 10 mg Rectal DAILY PRN ??? bupicacaine-EPINEPHrine 0.25-1:749966 % injection Intra-Op ??? citalopram (aka CELEXA) [...] CV Exam: Regular rhythm without murmur. Tachycardia. Professor Of Religion: Sinus tachycardia. 12-Lead EKG: Sinus tachycardia. No [...] Blood drawing, Monitoring, IV access; Plan: Continue #2-[place] in Left, Radial; Day # 1; Indication: [...] [facility], Provider - 03/29/2010 12:00 AM CDT documented in this encounter Miscellaneous Notes [place] - [facility], PROVIDER - 04/25/2010 12:00 AM CDT Media [...] Maurice Baron MD LAB_1 Performing Organization Address [facility] Phon e Number [address] [address] [place], [place] [phone] GLUCOSE, WHOLE BLOOD POC (04/19/2010 5:02 PM CDT) P athologist Signature Glucose, Whole 133 70 - 180 REGIONS Blood mg/dl Comment: Point of Care Testing RN Notified Specimen Anatomical Collection Method Collection Time Receive d Time (Source) Location / / Volume Laterality 04/19/2010 5:02 PM 0 5:04 CDT PM CDT Maurice Baron MD LAB_1 Performing Organization Address [facility] Phon e Number [address] [address] [place], [place] [phone] XR ABDOMEN DECUBE ONLY (04/19/2010 3:05 PM [...] Criselda Rodriguez PA-C LAB_1 Performing Organization Address [facility]/ZIP [facility] Phon e Number [address] [address] [place], [place] [phone] PURPLE HOLD TUBE (04/19/2010 6:30 AM CDT) [facility] gist Method Time Signature Purple Hold [...] Maurice Baron MD LAB_1 Performing Organization Address [facility]/ZIP [facility] Phon e Number [address] [address] [place], [place] [phone] GLUCOSE, WHOLE BLOOD POC (04/18/2010 9:28 PM CDT) P athologist Signature Glucose, Whole 126 70 - 180 REGIONS Blood mg/dl Comment: Point of Care Testing RN Notified Specimen Anatomical Collection Method Collection Time Receive d Time (Source) Location / / Volume Laterality 04/18/2010 9:28 PM 0 9:36 CDT PM CDT Maurice Baron MD LAB_1 Performing Organization Address [facility] Phon e Number [address] [address] [place], [place] [phone] (ABNORMAL) INR/PROTIME (04/18/2010 9:00 AM CDT) P athologist Signature Protime 19.9 (H) 12.0 - 14.5 REGIONS sec INR 1.6 REGIONS Specimen Anatomical Collection Method Collection Time Receive d Time (Source) Location / / Volume Laterality 04/18/2010 9:00 AM 0 9:33 CDT AM CDT Criselda Rodriguez PA-C LAB_1 Performing Organization Address [facility] Phon e Number [address] [address] [place], [place] [phone] (ABNORMAL) HEMOGLOBIN, BLOOD (04/18/2010 6:50 AM CDT) P athologist Signature Hemoglobin 9.2 (L) 13.5 - 17.5 REGIONS g/dl Specimen Anatomical Collection Method Collection Time Receive d Time (Source) Location / / Volume Laterality 04/18/2010 6:50 AM 0 7:21 CDT AM CDT Criselda Rodriguez PA-C LAB_1 Performing Organization Address [facility] Phon e Number [address] [address] [place], [place] [phone] GLUCOSE, WHOLE BLOOD POC (04/17/2010 5:29 PM CDT) P athologist Signature Glucose, Whole 114 70 - 180 REGIONS Blood mg/dl Comment: Point of Care Testing RN Notified Specimen Anatomical Collection Method Collection Time Receive d Time (Source) Location / / Volume Laterality 04/17/2010 5:29 PM 0 5:31 CDT PM CDT Maurice Baron MD LAB_1 Performing Organization Address City/[facility]/ZIP Code Phon e Number [address] [address] [place], [place] [phone] (ABNORMAL) GLUCOSE, WHOLE BLOOD POC (04/17/2010 12:07 PM CDT) P athologist Signature Glucose, Whole 200 (H) 70 - 180 REGIONS Blood mg/dl Comment: Point of Care Testing RN Notified Specimen Anatomical Collection Method Collection Time Receive d Time (Source) Location / / Volume Laterality 04/17/2010 12:07 04/17/2010 PM CDT 12:12 PM CDT Maurice Baron MD LAB_1 Performing Organization Address [facility] Code Phon e Number [address] [address] [place], [place] [phone] GLUCOSE, WHOLE BLOOD POC (04/17/2010 8:07 AM CDT) P athologist Signature Glucose, Whole 107 70 - 180 REGIONS Blood mg/dl Comment: Point of Care Testing RN Notified Specimen Anatomical Collection Method Collection Time Receive d Time (Source) Location / / Volume Laterality 04/17/2010 8:07 AM 0 8:08 CDT AM CDT Maurice Baron MD LAB_1 Performing Organization Address City/[facility]/ZIP Code Phon e Number [address] [address] [place], [place] [phone] (ABNORMAL) INR/PROTIME (04/17/2010 7:15 AM CDT) P athologist Signature Protime 18.6 (H) 12.0 - 14.5 REGIONS sec INR 1.5 REGIONS Specimen Anatomical Collection Method Collection Time Receive d Time (Source) Location / / Volume Laterality 04/17/2010 7:15 AM 0 9:40 CDT AM CDT Anthony Genao MD LAB_1 Performing Organization Address City/[facility]/ZIP Code Phon e Number [address] [address] [place], [place] [phone] (ABNORMAL) HEMOGRAM/PLTS (04/17/2010 7:15 AM CDT) athologist [...] Organization Address City/State/ZIP Code Phon e Number [facility] [address] [place] [address] [place], [place] [phone] (ABNORMAL) BASIC METABOLIC PANEL (04/17/2010 7:15 AM [...] Anthony Genao MD LAB_1 Performing Organization Address City/[facility]/ZIP [facility] Phon e Number [address] [address] [place], [place] [phone] GLUCOSE, WHOLE BLOOD POC (04/16/2010 9:00 PM CDT) P athologist Signature Glucose, Whole 134 70 - 180 REGIONS Blood mg/dl Comment: Point of Care Testing RN Notified Specimen Anatomical Collection Method Collection Time Receive d Time (Source) Location / / Volume Laterality 04/16/2010 9:00 PM 0 9:01 CDT PM CDT Maurice Baron MD LAB_1 Performing Organization Address [facility] Phon e Number [address] [address] [place], [place] [phone] OSMOLALITY, URINE (04/16/2010 4:40 PM CDT) P athologist Signature Osmolality, 327 REGIONS Urine Specimen Anatomical Collection Method Collection Time Receive d Time (Source) Location / / Volume Laterality Urine specimen 04/16/2010 4:40 PM 010 4:54 (specimen) CDT PM CDT Anthony Genao MD LAB_1 Performing Organization Address [facility] Phon e Number [address] [address] [place], [place] [phone] OSMOLALITY (04/16/2010 1:20 PM CDT) P athologist Signature Osmolality 285 280 - 300 REGIONS mosm/kg Specimen Anatomical Collection Method Collection Time Receive d Time (Source) Location / / Volume Laterality 04/16/2010 1:20 PM 0 1:25 CDT PM CDT Anthony Genao MD LAB_1 Performing Organization Address City/[facility]/ZIP [facility] Phon e Number [address] [address] [place], [place] [phone] (ABNORMAL) BASIC METABOLIC PANEL (04/16/2010 1:20 PM [...] Maurice Baron MD LAB_1 Performing Organization Address City/[facility]/ZIP Code Phon e Number [address] [address] [place], [place] [phone] GLUCOSE, WHOLE BLOOD POC (04/16/2010 11:22 AM CDT) athologist Signature Glucose, Whole 148 70 - 180 REGIONS Blood mg/dl Comment: Point of Care Testing RN Notified Specimen Anatomical Collection Method Collection Time Receive d Time (Source) Location / / Volume Laterality 04/16/2010 11:22 04/16/2010 AM CDT 11:28 AM CDT Maurice Baron MD LAB_1 Performing Organization Address [facility] Phon e Number [address] [address] [place], [place] [phone] BASIC METABOLIC PANEL (04/16/2010 10:56 AM CDT) [...] Maurice Baron MD LAB_1 Performing Organization Address [facility] Phon e Number [address] [address] [place], [place] [phone] ADD ON LAB ORDERS(SPECIMEN IN LAB) (04/16/2010 10:13 AM CDT) Patholo gist Method Time Signature Add On Test Additional REGIONS Testing Ordered by Specimen Anatomical Collection Method Collection Time Receive d Time (Source) Location / / Volume Laterality 04/16/2010 10:13 04/16/2010 AM CDT 10:18 AM CDT Beth Luna MD LAB_1 Performing Organization Address [facility] Phon e Number [address] [address] [place], [place] [phone] GLUCOSE, WHOLE BLOOD POC (04/16/2010 7:58 AM CDT) P athologist Signature Glucose, Whole 113 70 - 180 REGIONS Blood mg/dl Comment: Point of Care Testing RN Notified Specimen Anatomical Collection Method Collection Time Receive d Time (Source) Location / / Volume Laterality 04/16/2010 7:58 AM 0 8:10 CDT AM CDT Maurice Baron MD LAB_1 Performing Organization Address City/[facility]/ZIP Code Phon e Number [address] [address] [place], [place] [phone] (ABNORMAL) INR/PROTIME (04/16/2010 6:00 AM CDT) athologist Signature Protime 16.0 (H) 12.0 - 14.5 REGIONS sec INR 1.3 REGIONS Specimen Anatomical Collection Method Collection Time Receive d Time (Source) Location / / Volume Laterality 04/16/2010 6:00 AM 0 6:22 CDT AM CDT Maurice Baron MD LAB_1 Performing Organization Address [facility]/ZIP [facility] Phon e Number [address] [address] [place], [place] [phone] (ABNORMAL) INR/PROTIME (04/15/2010 7:00 AM CDT) athologist Signature Protime 14.8 (H) 12.0 - 14.5 REGIONS sec INR 1.1 REGIONS Specimen Anatomical Collection Method Collection Time Receive d Time (Source) Location / / Volume Laterality 04/15/2010 7:00 AM 0 7:06 CDT AM CDT Cecile Browne PA-C LAB_1 Performing Organization Address City/[facility]/ZIP [facility] Phon e Number [address] [address] [place], [place] [phone] (ABNORMAL) BASIC METABOLIC PANEL (04/15/2010 7:00 AM [...] Cecile Browne PA-C LAB_1 Performing Organization Address [facility]/ZIP [facility] Phon e Number [address] [address] [place], [place] [phone] URINE CULTURE (04/14/2010 3:05 PM CDT) [facility] gist Method Time Signature Specimen Urine REGIONS Description Special Unspecified REGIONS Requests Culture No Growth After REGIONS 1 Day Report Status Final REGIONS 04/15/2010 Specimen Anatomical Collection Method Collection Time Receive d Time (Source) Location / / Volume Laterality 04/14/2010 3:05 PM 0 3:58 CDT PM CDT Maurice Baron MD LAB_1 Performing Organization Address [facility] Phon e Number [address] [address] [place], [place] [phone] US VENOUS DUPLEX LOWER EXTREMITY BILATERAL (04/14/2010 [...] of bilateral lower extremity veins performed by mailroom messenger. Study technically difficult due to consi derable soft tissue swelling. FINDINGS: RIGHT: Nonocclusive thrombus in the dist al common femoral, proximal femoral and profunda femoris veins, better docu mented today. Remainder of the visualized femoral, popliteal and manager marketing sales ior tibial veins are negative for DVT. [...] of bilateral lower extremity veins performed by mailroom messenger. Study technically difficult due to consi derable soft tissue swelling. FINDINGS: RIGHT: Nonocclusive thrombus in the dist al common femoral, proximal femoral and profunda femoris veins, better docu mented today. Remainder of the visualized femoral, popliteal and manager marketing sales ior tibial veins are negative for DVT. [...] Maurice Baron MD LAB_1 Performing Organization Address [facility] Phon e Number [address] [address] [place], [place] [phone] ADD ON LAB ORDERS(SPECIMEN IN LAB) (04/14/2010 8:51 AM CDT) [facility] gist Method Time Signature Add On Test Additional REGIONS Testing Ordered by Specimen Anatomical Collection Method Collection Time Receive d Time (Source) Location / / Volume Laterality 04/14/2010 8:51 AM 0 8:56 CDT AM CDT Cecile Browne PA-C LAB_1 Performing Organization Address [facility] Phon e Number [address] [address] [place], [place] [phone] (ABNORMAL) INR/PROTIME (04/14/2010 6:00 AM CDT) athologist Signature Protime 14.7 (H) 12.0 - 14.5 REGIONS sec INR 1.1 REGIONS Specimen Anatomical Collection Method Collection Time Receive d Time (Source) Location / / Volume Laterality 04/14/2010 6:00 AM 0 6:36 CDT AM CDT Cecile Browne PA-C LAB_1 Performing Organization Address [facility]/ZIP Code Phon e Number [address] [address] [place], [place] [phone] ECG 12-LEAD ROUTINE (04/13/2010 7:41 PM CDT) P athologist Signature Ventricular Rate 114 BPM MUSE Atrial Rate 114 BPM MUSE P-R Interval 176 ms MUSE QRS Duration 92 ms MUSE QT 326 ms MUSE QTc 449 ms MUSE P Julian 60 degrees MUSE R Julian -42 degrees MUSE T Julian 26 degrees MUSE URL Link MUSE Specimen [...] Cecile Browne PA-C EKG Performing Organization Address [facility] Phon e Number MUSE RHP MUSE CT ANGIOGRAPHY PULMONARY EMBOLISM STUDY (04/13/2010 7:01 PM CDT) Anatomical Region Laterality Modality Chest, Lung, Vascular Computed Tomograph y Specimen (Source) Anatomical Collection Method Collection Time Re ceived Time Location / / Volume Laterality 04/13/2010 7:01 PM CDT Narrative 04/13/2010 7:13 PM CDT CTA CHEST INDICATION: ??Shortness of breath, chest pain. TECHNIQUE: ??After nonenhanced ticket puller teresa ges were obtained, helical acquisition through [...] breath, chest p ain. TECHNIQUE: After nonenhanced ticket puller image s were obtained, helical acquisition through [...] CT URINE CULTURE (04/13/2010 5:25 PM CDT) [facility] gist Method Time Signature Specimen Urine [...] HOSPITAL [address] [place] [address] [place], [place] [phone] ADD ON LAB ORDERS(SPECIMEN IN LAB) (04/13/2010 5:25 PM CDT) [facility] Method Time Signature Add On Test Additional REGIONS Testing Ordered by Specimen Anatomical Collection Method Collection Time Receive d Time (Source) Location / / Volume Laterality 04/13/2010 5:25 PM 201 0 5:33 CDT PM CDT Cecile Browne PA-C LAB_1 Performing Organization Address [facility] Phon e Number [address] [address] [place], [place] [phone] (ABNORMAL) UA WITH MICROSCOPIC (04/13/2010 5:25 PM CDT) [facility] Method Time Signature Urine Color Light Yellow REGIONS Urine Clarity Hazy REGIONS Specific 1.011 1.005 - REGIONS [place],Ur 1.03 pH, Urine 5.5 4.5 - 8.0 [...] Cecile Browne PA-C LAB_1 Performing Organization Address [facility] Phon e Number [address] [address] [place], [place] [phone] FREE T4 (04/13/2010 3:55 PM CDT) P athologist Signature T4, Free 1.3 0.8 - 2.2 REGIONS ng/dl Specimen Anatomical Collection Method Collection Time Receive d Time (Source) Location / / Volume Laterality 04/13/2010 3:55 PM 0 4:13 CDT PM CDT Cecile Browne PA-C LAB_1 Performing Organization Address [facility]/[place] [facility] Phon e Number [address] [address] [place], [place] [phone] (ABNORMAL) TSH, SENSITIVE (WITH REFLEX) (04/13/2010 3:55 PM CDT) Analysis Performed At Patho logist Time Signature TSH, with 6.723 (H) 0.465 - REGIONS Reflex 4.68 uIU/ml Specimen Anatomical Collection Method Collection Time Receive d Time (Source) Location / / Volume Laterality 04/13/2010 3:55 PM 0 4:13 CDT PM CDT Cecile Browne PA-C LAB_1 Performing Organization Address [facility]/ZIP Code Phon e Number [address] [address] [place], [place] [phone] ADD ON LAB ORDERS(SPECIMEN IN LAB) (04/13/2010 3:55 PM CDT) Patholo gist Method Time Signature Add On Test Additional REGIONS Testing Ordered by Specimen Anatomical Collection Method Collection Time Receive d Time (Source) Location / / Volume Laterality 04/13/2010 3:55 PM 0 4:13 CDT PM CDT Cecile Browne PA-C LAB_1 Performing Organization Address [facility]IP [facility] Phon e Number [address] [address] [place], [place] [phone] (ABNORMAL) HEMOGLOBIN, BLOOD (04/13/2010 3:55 PM CDT) P athologist Signature Hemoglobin 9.3 (L) 13.5 - 17.5 REGIONS g/dl Specimen Anatomical Collection Method Collection Time Receive d Time (Source) Location / / Volume Laterality 04/13/2010 3:55 PM 0 4:13 CDT PM CDT Cecile Browne PA-C LAB_1 Performing Organization Address [facility] Phon e Number [address] [address] [place], [place] [phone] CORTISOL (04/13/2010 3:55 PM CDT) P athologist Signature Cortisol 15 mcg/dl REGIONS Specimen Anatomical Collection Method Collection Time Receive d Time (Source) Location / / Volume Laterality 04/13/2010 3:55 PM 0 4:13 CDT PM CDT Cecile Browne PA-C LAB_1 Performing Organization Address [facility] Phon e Number [address] [address] [place], [place] [phone] XR PORTABLE CHEST 1 VIEW (04/13/2010 8:44 [...] Maurice Baron MD LAB_1 Performing Organization Address [facility] Phon e Number [address] [address] [place], [place] [phone] PHOSPHORUS (04/13/2010 5:45 AM CDT) athologist Signature Phosphorus 3.2 2.5 - 4.5 REGIONS mg/dl Specimen Anatomical Collection Method Collection Time Receive d Time (Source) Location / / Volume Laterality 04/13/2010 5:45 AM 0 5:57 CDT AM CDT Maurice Baron MD LAB_1 Performing Organization Address [facility] Phon e Number [address] [address] [place], [place] [phone] MAGNESIUM (04/13/2010 5:45 AM CDT) athologist Signature Magnesium 1.8 1.6 - 2.3 REGIONS mg/dl Specimen Anatomical Collection Method Collection Time Receive d Time (Source) Location / / Volume Laterality 04/13/2010 5:45 AM 0 5:57 CDT AM CDT Maurice Baron MD LAB_1 Performing Organization Address [facility] Phon e Number [address] [address] [place], [place] [phone] (ABNORMAL) HEMOGRAM/PLTS (04/13/2010 5:45 AM CDT) P [...] Maurice Baron MD LAB_1 Performing Organization Address [facility]/[place] Phon e Number [address] [address] [place], [place] [phone] (ABNORMAL) HEMOGLOBIN, BLOOD (04/13/2010 2:30 AM CDT) P athologist Signature Hemoglobin 9.6 (L) 13.5 - 17.5 REGIONS g/dl Comment: Result Checked Specimen Anatomical Collection Method Collection Time Receive d Time (Source) Location / / Volume Laterality 04/13/2010 2:30 AM 0 2:36 CDT AM CDT Maurice Baron MD LAB_1 Performing Organization Address [facility] Phon e Number [address] [address] [place], [place] [phone] GLUCOSE, WHOLE BLOOD POC (04/12/2010 3:59 PM CDT) P athologist Signature Glucose, Whole 130 70 - 180 REGIONS Blood mg/dl Comment: Point of Care Testing RN Notified Specimen Anatomical Collection Method Collection Time Receive d Time (Source) Location / / Volume Laterality 04/12/2010 3:59 PM 0 CDT 11:36 PM CDT Maurice Baron MD LAB_1 Performing Organization Address [facility] Phon e Number [address] [address] [place], [place] [phone] GLUCOSE, WHOLE BLOOD POC (04/12/2010 12:26 PM CDT) P athologist Signature Glucose, Whole 145 70 - 180 REGIONS Blood mg/dl Comment: Point of Care Testing RN Notified Specimen Anatomical Collection Method Collection Time Receive d Time (Source) Location / / Volume Laterality 04/12/2010 12:26 04/12/2010 PM CDT 11:36 PM CDT Maurice Baron MD LAB_1 Performing Organization Address [facility] Phon e Number [address] [address] [place], [place] [phone] US VENOUS DUPLEX LOWER EXTREMITY BILATERAL (04/12/2010 [...] Organization Address City/State/ZIP Code Phon e Number [address] [address] [place], [place] [phone] MR THORACIC SPINE WITH/WITHOUT CONTRAST (04/12/2010 10:35 AM CDT) Anatomical Region Laterality Modality Spine, T-Spine, L-Spine, C-Spine, Skeletal Magnetic Resonance Specimen (Source) Anatomical Collection Method Collection Time Re ceived Time Location / / Volume Laterality 04/12/2010 10:35 AM CDT Narrative 04/12/2010 11:01 AM CDT MRI THORACIC SPINE [facility] 04/12/2010 INDICATIONS: Status post tumor resection [...] Marcel Schaefer - 04/12/2010 MRI THORACIC SPINE [facility] 04/12/2010 INDICATIONS: Status post tumor resection [...] Maurice Baron MD LAB_1 Performing Organization Address [facility] Phon e Number [address] [address] [place], [place] [phone] Troponin I q6h X3 (04/12/2010 4:25 AM CDT) athologist Signature Troponin I <0.012 0.000 - REGIONS 0.03 ng/ml Comment: PLEASE NOTE CHANGE IN REFERENCE RANGE Specimen Anatomical Collection Method Collection Time Receive d Time (Source) Location / / Volume Laterality 04/12/2010 4:25 AM 0 4:45 CDT AM CDT Maurice Baron MD LAB_1 Performing Organization Address [facility] Phon e Number [address] [address] [place], [place] [phone] PHOSPHORUS (04/12/2010 4:24 AM CDT) athologist Signature Phosphorus 2.9 2.5 - 4.5 REGIONS mg/dl Specimen Anatomical Collection Method Collection Time Receive d Time (Source) Location / / Volume Laterality 04/12/2010 4:24 AM 0 4:46 CDT AM CDT Maurice Baron MD LAB_1 Performing Organization Address [facility] Phon e Number [address] [address] [place], [place] [phone] MAGNESIUM (04/12/2010 4:24 AM CDT) athologist Signature Magnesium 2.1 1.6 - 2.3 REGIONS mg/dl Specimen Anatomical Collection Method Collection Time Receive d Time (Source) Location / / Volume Laterality 04/12/2010 4:24 AM 0 4:46 CDT AM CDT Maurice Baron MD LAB_1 Performing Organization Address [facility]/ZIP Code Phon e Number [address] [address] [place], [place] [phone] ADD ON LAB ORDERS(SPECIMEN IN LAB) (04/12/2010 4:24 AM CDT) [facility] gist Method Time Signature Add On Test Additional REGIONS Testing Ordered by Specimen Anatomical Collection Method Collection Time Receive d Time (Source) Location / / Volume Laterality 04/12/2010 4:24 AM 0 4:46 CDT AM CDT Maurice Baron MD LAB_1 Performing Organization Address [facility] Phon e Number [address] [address] [place], [place] [phone] (ABNORMAL) Basic Metabolic Panel (04/12/2010 4:24 AM [...] Lucy Colmenares PA-C LAB_1 Performing Organization Address [facility] Phon e Number [address] [address] [place], [place] [phone] (ABNORMAL) Hemogram with Plts (04/12/2010 4:24 AM [...] Lucy Colmenares PA-C LAB_1 Performing Organization Address [facility] Phon e Number [address] [address] [place], [place] [phone] (ABNORMAL) GLUCOSE, WHOLE BLOOD POC (04/12/2010 4:02 AM CDT) P athologist Signature Glucose, Whole 229 (H) 70 - 180 REGIONS Blood mg/dl Comment: Point of Care Testing RN Notified IV Insulin Specimen Anatomical Collection Method Collection Time Receive d Time (Source) Location / / Volume Laterality 04/12/2010 4:02 AM 201 0 4:38 CDT AM CDT Maurice Baron MD LAB_1 Performing Organization Address [facility] Phon e Number [address] [address] [place], [place] [phone] (ABNORMAL) GLUCOSE, WHOLE BLOOD POC (04/12/2010 12:02 AM CDT) P athologist Signature Glucose, Whole 236 (H) 70 - 180 REGIONS Blood mg/dl Comment: Point of Care Testing RN Notified IV Insulin Specimen Anatomical Collection Method Collection Time Receive d Time (Source) Location / / Volume Laterality 04/12/2010 12:02 04/12/2010 AM CDT 12:45 AM CDT Maurice Baron MD LAB_1 Performing Organization Address [facility] Phon e Number [address] [address] [place], [place] [phone] Calcium, Ionized (04/11/2010 10:31 PM CDT) P [...] Maurice Baron MD LAB_1 Performing Organization Address [facility] Phon e Number [address] [address] [place], [place] [phone] Troponin I q6h X3 (04/11/2010 10:30 PM CDT) P athologist Signature Troponin I <0.012 0.000 - REGIONS 0.03 ng/ml Comment: PLEASE NOTE CHANGE IN REFERENCE RANGE Specimen Anatomical Collection Method Collection Time Receive d Time (Source) Location / / Volume Laterality 04/11/2010 10:30 04/11/2010 PM CDT 10:31 PM CDT Maurice Baron MD LAB_1 Performing Organization Address [facility] Phon e Number [address] [address] [place], [place] [phone] Urine Culture (04/11/2010 10:30 PM CDT) Patholo [...] Maurice Baron MD LAB_1 Performing Organization Address [facility] Phon e Number [address] [address] [place], [place] [phone] INR/Protime (PT/INR) (04/11/2010 10:30 PM CDT) P athologist Signature Protime 13.5 12.0 - 14.5 REGIONS sec INR 1.0 REGIONS Specimen Anatomical Collection Method Collection Time Receive d Time (Source) Location / / Volume Laterality 04/11/2010 10:30 04/11/2010 PM CDT 10:31 PM CDT Maurice Baron MD LAB_1 Performing Organization Address [facility] Phon e Number [address] [address] [place], [place] [phone] Magnesium (04/11/2010 10:30 PM CDT) P athologist Signature Magnesium 1.6 1.6 - 2.3 REGIONS mg/dl Specimen Anatomical Collection Method Collection Time Receive d Time (Source) Location / / Volume Laterality 04/11/2010 10:30 04/11/2010 PM CDT 10:31 PM CDT Maurice Baron MD LAB_1 Performing Organization Address [facility] Phon e Number [address] [address] [place], [place] [phone] Phosphorus (04/11/2010 10:30 PM CDT) athologist Signature Phosphorus 4.2 2.5 - 4.5 REGIONS mg/dl Specimen Anatomical Collection Method Collection Time Receive d Time (Source) Location / / Volume Laterality 04/11/2010 10:30 04/11/2010 PM CDT 10:31 PM CDT Maurice Baron MD LAB_1 Performing Organization Address [facility] Phon e Number [address] [address] [place], [place] [phone] (ABNORMAL) Basic Metabolic Panel (K, Na, CO2, [...] Maurice Baron MD LAB_1 Performing Organization Address [facility] Phon e Number [address] [address] [place], [place] [phone] (ABNORMAL) Hemogram with Platelets (04/11/2010 10:30 PM [...] Organization Address City/State/ZIP Code Phon e Number [address] [address] [place], [place] [phone] (ABNORMAL) Blood Gas, Arterial (ABG) (04/11/2010 10:30 [...] Organization Address City/State/ZIP Code Phon e Number [address] [address] [place], [place] [phone] XR PORTABLE CHEST 1 VIEW (04/11/2010 9:03 [...] ms MUSE QTc 487 ms MUSE P Julian 49 degrees MUSE R Julian -49 degrees MUSE T Julian 15 degrees MUSE URL Link MUSE Specimen [...] Maurice Baron MD EKG Performing Organization Address [facility]/ZIP [facility] Phon e Number MUSE RHP MUSE MRSA ADMIT SCREEN (04/11/2010 9:00 PM CDT) Component Value Ref Test Analysis Performed At [email or web address] Range Method Time Signature Specimen Nose Swab [...] Maurice Baron MD LAB_1 Performing Organization Address [facility] Phon e Number [address] [address] [place], [place] [phone] (ABNORMAL) GLUCOSE, WHOLE BLOOD POC (04/11/2010 8:28 PM CDT) P athologist Signature Glucose, Whole 183 (H) 70 - 180 REGIONS Blood mg/dl Comment: Point of Care Testing RN Notified Specimen Anatomical Collection Method Collection Time Receive d Time (Source) Location / / Volume Laterality 04/11/2010 8:28 PM 0 8:38 CDT PM CDT Maurice Baron MD LAB_1 Performing Organization Address [facility] Phon e Number [address] [address] [place], [place] [phone] ANAEROBIC CULTURE (04/11/2010 4:30 PM CDT) [employer] gist Method Time Signature Specimen Tissue DEEPER REGIONS Description COLLECTION Posterior Neck Special Received in REGIONS Requests Anaport Vial Aerobic Cult [id number] REGIONS Number Culture No Anaerobes REGIONS Isolated Report Status Final REGIONS 04/17/2010 Specimen Anatomical Collection Method Collection Time Receive d Time (Source) Location / / Volume Laterality 04/11/2010 4:30 PM 0 6:18 CDT PM CDT Maurice Baron MD LAB_1 Performing Organization Address [facility] Phon e Number [address] [address] [place], [place] [phone] AEROBIC CULTURE (04/11/2010 4:30 PM CDT) Patholo [...] Maurice Baron MD LAB_1 Performing Organization Address [facility] Phon e Number [address] [address] [place], [place] [phone] ANAEROBIC CULTURE (04/11/2010 4:00 PM CDT) [email or web address] Method Time Signature Specimen Tissue REGIONS Description Posterior Neck SUB PUSTUAL COLLECTION Special Received in REGIONS Requests Anaport Vial Aerobic Cult [id number] REGIONS Number Culture No Anaerobes REGIONS Isolated Report Status Final REGIONS 04/17/2010 Specimen Anatomical Collection Method Collection Time Receive d Time (Source) Location / / Volume Laterality 04/11/2010 4:00 PM 0 6:32 CDT PM CDT Maurice Baron MD LAB_1 Performing Organization Address [facility]/ZIP Code Phon e Number [address] [address] [place], [place] [phone] AEROBIC CULTURE (04/11/2010 4:00 PM CDT) [facility] [email or web address] Method Time Signature Specimen Tissue SUB REGIONS [...] Maurice Baron MD LAB_1 Performing Organization Address [facility]/ZIP Code Phon e Number [address] [address] [place], [place] [phone] ANAEROBIC CULTURE (04/11/2010 4:00 PM CDT) Patholo gist Method Time Signature Specimen Tissue SUB REGIONS Description PUSTUAL WALL Posterior Neck Special Received in REGIONS Requests Anaport Vial Aerobic Cult [id number] REGIONS Number Culture No Anaerobes REGIONS Isolated Report Status Final REGIONS 04/17/2010 Specimen Anatomical Collection Method Collection Time Receive d Time (Source) Location / / Volume Laterality 04/11/2010 4:00 PM 0 6:25 CDT PM CDT Maurice Baron MD LAB_1 Performing Organization Address [facility] Phon e Number [address] [address] [place], [place] [phone] AEROBIC CULTURE (04/11/2010 4:00 PM CDT) [email or web address] Method Time Signature Specimen Tissue SUB REGIONS [...] Maurice Baron MD LAB_1 Performing Organization Address City/[facility]/ZIP Code Phon e Number [address] [address] [place], [place] [phone] ANAEROBIC CULTURE (04/11/2010 4:00 PM CDT) Patholo gist Method Time Signature Specimen Aspirate REGIONS Description Posterior Neck SUBPUSTUAL COLLECTION Special Received in REGIONS Requests Anaport Vial Aerobic Cult [id number] REGIONS Number Culture No Anaerobes REGIONS Isolated Report Status Final REGIONS 04/17/2010 Specimen Anatomical Collection Method Collection Time Receive d Time (Source) Location / / Volume Laterality 04/11/2010 4:00 PM 0 4:07 CDT PM CDT Maurice Baron MD LAB_1 Performing Organization Address [facility] Phon e Number [address] [address] [place], [place] [phone] AEROBIC CULTURE (04/11/2010 4:00 PM CDT) [facility] [email or web address] Method Time Signature Specimen Aspirate REGIONS Description Posterior Neck SUBPUSTUAL COLLECTION Special Received in REGIONS Requests Anaport Vial Gram Smear Rare PMNs Seen REGIONS Gram Smear No Organisms REGIONS Seen Gram Smear Results Called REGIONS to Dr Baron via Speaker Phone [phone] at 16:30 on Gram Smear 04/11 by AG REGIONS Culture No Growth REGIONS After 3 Days Report Status Final REGIONS 04/14/2010 Specimen Anatomical Collection Method Collection Time Receive d Time (Source) Location / / Volume Laterality 04/11/2010 4:00 PM 0 4:07 CDT PM CDT Maurice Baron MD LAB_1 Performing Organization Address [facility] Phon e Number [address] [address] [place], [place] [phone] ABO Rh & Antibody Screen (Type & Screen) (04/11/2010 11:57 AM CDT) [facility] [email or web address] Method Time Signature Crossmatch 04/14/2010 REGIONS Expires ABO/RH(D) A NEGATIVE REGIONS Antibody NEGATIVE REGIONS Screen Specimen Anatomical Collection Method Collection Time Receive d Time (Source) Location / / Volume Laterality 04/11/2010 11:57 04/11/2010 AM CDT 12:06 PM CDT Maurice Baron MD LAB_1 Performing Organization Address [facility] Phon e Number [address] [address] [place], [place] [phone] aPTT (Activated Partial Thromboplastin Time) (04/11/2010 11:57 AM CDT) P athologist Signature PTT 27.0 24.0 - 37.0 REGIONS sec Specimen Anatomical Collection Method Collection Time Receive d Time (Source) Location / / Volume Laterality 04/11/2010 11:57 04/11/2010 AM CDT 12:05 PM CDT Maurice Baron MD LAB_1 Performing Organization Address [facility] Phon e Number [address] [address] [place], [place] [phone] INR/Protime (PT/INR) (04/11/2010 11:57 AM CDT) P athologist Signature Protime 12.5 12.0 - 14.5 REGIONS sec INR 0.9 REGIONS Specimen Anatomical Collection Method Collection Time Receive d Time (Source) Location / / Volume Laterality 04/11/2010 11:57 04/11/2010 AM CDT 12:05 PM CDT Maurice Baron MD LAB_1 Performing Organization Address [facility] Phon e Number [address] [address] [place], [place] [phone] SURGICAL PATH (04/11/2010 7:00 AM CDT) Patholo gist Method Time Signature 9911 (NOTE) REGIONS Surgical Final Report Patient Name: JIE CULLEN Taken: 04/11/2010 Received: 04/11/2010 Reported: 04/20/2010 Physician(s): MAURICE BARON ([id number]) ? 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 ??The histologic findings are similar to the [...] Signed Out By ? Chelsea Estrada MD ([id number]) Procedures/Addenda Clinical History Thoracic tumor Gross Description [...] three slides. ?? 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 518.81 Acute Respiratory Failure No past medical history on file. Subjective: Prior ADL Status Residence: Lives with spouse, in house Self Care: Assist needed with LE dressing Meal Prep: defers to spouse Laundry/Cleaning: defers to spouse Finances: shared responsibility Shopping: shared responsibility Transportation: licensed driver examiner Bathroom Location and Set-up: walk-in shower Equipment [...] Abby Ellsworth OTR/L (pager) OT Dept #: [phone] - OT Weekend Pager #: [phone] - Rehabilitation [facility] Main #: [phone] --- End of Report --- Initial Assessments - Spenser Morocho - 04/11/2010 11:47 PM CDT [facility] Med-Surg / ICU / Rehab / [...] will continue to assess andmake appropriate referrals/interventions PSYCHOSOCIAL/SPIRITUAL/ORTHODOX/CULTURAL/ABUSE/CHEMICAL Suicide Health Inventory Do you currently have [...] 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, grief/loss, etc.): Yes - Turntable Operator Consult Recommended Cultural practices that affect patient [...] 04/18/2010 8:00 AM CDT 2 Patches lidocaine-epinephrine [id number]:[id number] % injec tion Given 04/11/2010 3:50 PM [...] Bernard Alcantar) 0800 (Given - Provider: Bernard lAcantar) 40 mg, Oral, DAILY, First dose on [...] Alcantar )1999 (Given - Provider: Malika Maradiaga, VALEREI) 0800 (Given - Provider: Bernard Alcantar ) [...] Provider: Bernard Alcantar) 0800 (Refused - Provider: Bernrad Alcantar) 17 g, Oral, DAILY, First dose [...] mg (CANCELED) 1600 (Given - Provider: Malika Maradiaag, VALERIE) 1600 (Given - Provider: Malika Maradiaga, [...] spasms documented in this encounter Care Teams [employer] Relationship Specialty Start Date End Date Unassigned, Provider PCP - General 11/28/01 05/21/[address] [place] [phone] documented as of this encounter
--- OUTSIDE RECORDS SUMMARY | 2022-07-04 15:18 | XMS_ITS | Encounter Summary ---
:1945 Author Organization [facility] Address [address] [place] [address] Care Team Providers Name Role Phone Unassigned, Provider Primary Care Provider Unavailable Encounter Details Date Type Department Care Team Description 04/29/2010 Correspondence [facility] Radiology, MRI SAFETY SHEET [address] [place] [address] Provider [place] [address] Social History Tobacco Use Types Packs/Day Years [...] on filedocumented in this encounter Care Teams Fire Investigation Manager Relationship Specialty Start Date End Date Unassigned, Provider PCP - General 11/28/01 05/21/10 [address] [place] [address] documented as of this encounter
--- OUTSIDE RECORDS SUMMARY | 2022-07-04 15:18 | XMS_ITS | Encounter Summary ---
:1945 Author Organization [facility] Address [address] [address] Care Team Providers Name Role Phone Unassigned, Provider Primary Care Provider Unavailable Encounter Details Date Type Department Care Team Description 04/19/2010 Imaging [facility] [address] [place] [address] Social History Tobacco Use Types Packs/Day Years [...] filedocumented in this encounter Care Teams Gastroenterology Physician Relationship Specialty Start Date End Date Unassigned, Provider PCP - General 11/28/01 05/21/[address] [place] [address] documented as of this encounter
--- OUTSIDE RECORDS SUMMARY | 2022-07-04 15:18 | XMS_ITS | Encounter Summary ---
:1945 Author Organization [facility] Address [address] [address] Care Team Providers Name Role Phone Unassigned, Provider Primary Care Provider Unavailable Reason for Visit Reason Onset Date Comments FOLLOW-UP,HOSPITAL 04/22/2010 Encounter Details Date Type Department Care Team Description 04/22/2010 Telephone Chelsea Jara RN FOLLOW-UP,[place] [address] Social History Tobacco Use Types Packs/Day Years Used Date Smoking Tobacco: Never Alcohol Use Standard Drinks/Week Comments No 0 (1 standard drink = 0.6 oz pure alcoho l) Sex Assigned at Date Recorded Male 08/06/2021 5:59 PM CDT documented as of this encounter Plan of Treatment Not on filedocumented as of this encounter Visit Diagnoses Not on filedocumented in this encounter Care Teams Drum Builder Relationship Specialty Start Date End Date Unassigned, Provider PCP - General 11/28/01 05/21/[address] [place] [address] documented as of this encounter
--- OUTSIDE RECORDS SUMMARY | 2022-07-04 15:18 | XMS_ITS | Encounter Summary ---
:1945 Author Organization [facility] Address [address] [place] [address] Care Team Providers Name Role Phone Unassigned, Provider Primary Care Provider Unavailable Encounter Details Date Type Department Care Team Description 04/29/2010 Imaging [facility] [address] [place], [place] [id number] Social History Tobacco Use Types Packs/Day Years [...] on filedocumented in this encounter Care Teams Capacitor Inspector Relationship Specialty Start Date End Date Unassigned, Provider PCP - General 11/28/01 05/21/[address] [place] [address] documented as of this encounter
--- OUTSIDE RECORDS SUMMARY | 2022-07-04 15:18 | XMS_ITS | Encounter Summary ---
:1945 Author Organization [facility] Address [address] [address] Care Team Providers Name Role Phone Unassigned, Provider Primary Care Provider Unavailable Reason for Visit Reason Onset Date Comments FEVER 04/24/2010 Encounter Details Date Type Department Care Team Description 04/24/2010 Telephone Specialty Center 401 Garry Neff MD FEVER NeuroSurgery [address] [place] [address] [place] [address] [phone] Social History Tobacco Use Types Packs/Day Years [...] on filedocumented in this encounter Care Teams Homicide Investigator Relationship Specialty Start Date End Date Unassigned, Provider PCP - General 11/28/01 05/21/[address] [place] [address] documented as of this encounter
--- OUTSIDE RECORDS SUMMARY | 2022-07-04 15:18 | XMS_ITS | Encounter Summary ---
:1945 Author Organization [employer] Address [address] [address] Care Team Providers Name Role Phone Unassigned, Provider Primary Care Provider Unavailable Reason for Visit Reason Comments EXAM,POSTOP DOS 04/11/2010 Encounter Details Date Type Department Care Team Description 04/27/2010 Office Visit Specialty Center Garry Neff Tumor of 401 NeuroSurgery X, MD Thoracic Site [address] (Primary Dx) [place] [address] [place], [place] [phone] (Wo rk) Social History Tobacco Use Types [...] Instructions Please stop at first floor to shrimp picker the copies of your intra-operative MRI's, this [...] refills. Please call the Neurosurgery/Spine Clinic at [phone] with any further questions or concerns. Please call this number if you need any other information sent to [facility] Specialty Care Technical Assistants will coordinate appointment. For additional information or questions regarding coverage call [phone] or [phone]. documented in this encounter Progress Notes Garry [...] he is going to go to the [facility] in 8 days to be considered forchemotherapy. I want to see him back in 11 days for removal of retention sutures and also want to see him back in 3 months with an MRI of the area, with and without contrast, for followup after resection. I did speak with Dr. Yris Brownlee today at [facility] and updated her. At this point, they will not do radiosurgery. Garry Neff MD mmj Dictated: 04/27/2010 10:41:33 Transcribed: 04/28/2010 09:46:49Job #: [id number] Doc #: [id number] cc:Yris Brownlee MD 1 Page 1 Patient Name: JIE CULLEN Visit Date: 04/27/2010 NEUROSURGERY [facility] RECORD [address] [address] Page 1 Patient: JIE CULLEN Location: [facility] HPN: [id number] Date of : 1945 Age: 64Y Visit Date: 04/27/2010 NEUROSURGERY documented in this encounter Nursing Notes 04/27/2010 10:20 AM CDT >> [facility]IN[facility] Apr 27, 2010 10:07 AM Postop [...] 5:27 PM CDT THORACIC SPINE MRI ? [facility] 07/27/2010 INDICATION: Followup tumor resection. TECHNIQUE: Thoracic [...] Julien Anna - 07/27/2010 THORACIC SPINE MRI [facility] 07/27/2010 INDICATION: Followup tumor resection. TECHNIQUE: Thoracic [...] nephropathy documented in this encounter Care Teams Technician Trainee Relationship Specialty Start Date End Date Unassigned, Provider PCP - General 11/28/01 05/21/[address] [place] [address] documented as of this encounter
--- OUTSIDE RECORDS SUMMARY | 2022-07-04 15:18 | XMS_ITS | Encounter Summary ---
:1945 Author Organization [facility] Address [address] [place] [address] Care Team Providers Name Role Phone Unassigned, Provider Primary Care Provider Unavailable Encounter Details Date Type Department Care Team Description 04/29/2010 Imaging [facility] MRI [address] [place] [address] Social History Tobacco Use Types Packs/Day Years [...] Results MR THORACIC SPINE WITH/WITHOUT CONTRAST (tell reconsignment clerk and call Radiologist) (04/29/2010 8:10 PM CDT) Anatomical Region Laterality Modality Spine, T-Spine, L-Spine, C-Spine, Skeletal Magnetic Resonance Specimen (Source) Anatomical Collection Method Collection Time Re ceived Time Location / / Volume Laterality 04/29/2010 8:10 PM CDT Narrative 04/29/2010 8:30 PM CDT [facility] [place] THORACIC SPINE MRI ? 04/29/2010 INDICATION: Neck [...] cord. Procedure Note Julien Anna - 04/29/2010 [facility] THORACIC SPINE MRI 04/29/2010 INDICATION: [...] on filedocumented in this encounter Care Teams Hand Meat Salter Relationship Specialty Start Date End Date Unassigned, Provider PCP - General 11/28/01 05/21/[address] [place] [address] documented as of this encounter
--- OUTSIDE RECORDS SUMMARY | 2022-07-04 15:18 | XMS_ITS | Encounter Summary ---
:1945 Author Organization [facility] Address [address] [place] [address] Care Team Providers Name Role Phone Unassigned, Provider Primary Care Provider Unavailable Reason for Visit Reason Comments Post Hospital Discharge Follow Up Encounter Details Date Type Department Care Team Description 04/21/2010 Telephone Steel Chipper Brittny Leyva, Post Hospital [address] - vice president network [place] [id number] [facility] [address] [place], [place] [id number] [place] [id number] Social History Tobacco Use Types Packs/Day Years [...] DEBULKING OF THORACIC EPENDYMOMA and discharged from [facility] on 04/20/10 to home. Spoke with patient. [...] to call Careline and number to call: [phone] or Confirmed using teach back method that [...] by hospital staff: DR. BARON 04/27/10 AT [facility]. FOR F/U SURGERY. Appointments made today:none needed. INR testing: by outside MD office. Other lab visit scheduled: No Concerns to address at follow up clinic appointment: NEEDS BMP & HGB. PT. TO DISCUSS.WITH PCP IFHE STILL NEEDS TO TAKE IRON PILL. LAST HGB WAS 9.2 ON 04/18/10 AT [facility]. documented in this encounter Plan of Treatment Not on filedocumented as of this encounter Visit Diagnoses Not on filedocumented in this encounter Care Teams Criminal Records Technician Relationship Specialty Start Date End Date Unassigned, Provider PCP - General 11/28/01 05/21/[address] [place] [address] documented as of this encounter
--- OUTSIDE RECORDS SUMMARY | 2022-07-04 15:19 | XMS_ITS | Encounter Summary ---
:1945 Author Organization [facility] Address [address], [place] [address] Care Team Providers Name Role Phone Unassigned, [...] in this encounter Care Teams Director Of Event Sales Relationship Specialty Start Date End Date Unassigned, Provider PCP - General 11/28/01 05/21/[address] [place] [address] documented as of this encounter
--- OUTSIDE RECORDS SUMMARY | 2022-07-04 15:19 | XMS_ITS | Encounter Summary ---
:1945 Author Organization [facility] Address [address] [place] [address] Care Team Providers Name Role Phone Unassigned, Provider Primary Care Provider Unavailable Encounter Details Date Type Department Care Team Description 04/13/[address] [place], [place] [phone] Social History Tobacco Use Types Packs/Day Years [...] of breath, chest pain. TECHNIQUE: ??After nonenhanced beet flumer teresa ges were obtained, helical acquisition through [...] breath, chest p ain. TECHNIQUE: After nonenhanced beet flumer image s were obtained, helical acquisition through [...] on filedocumented in this encounter Care Teams Chopper Gun Operator Relationship Specialty Start Date End Date Unassigned, Provider PCP - General 11/28/01 05/21/[address] [place] [address] documented as of this encounter
--- OUTSIDE RECORDS SUMMARY | 2022-07-04 15:19 | XMS_ITS | Encounter Summary ---
:1945 Author Organization [facility] Address [address] [place] [address] Care Team Providers Name Role Phone Unassigned, Provider Primary Care Provider Unavailable Encounter Details Date Type Department Care Team Description 04/11/2010 Correspondence [facility] Radiology, MRI SAFETY SHEET [address] [place] [address] [place] [address] Social History Tobacco Use Types Packs/Day Years [...] on filedocumented in this encounter Care Teams Draw Frame Operator Relationship Specialty Start Date End Date Unassigned, Provider PCP - General 11/28/01 05/21/10 [address] [place] [address] documented as of this encounter
--- OUTSIDE RECORDS SUMMARY | 2022-07-04 15:19 | XMS_ITS | Encounter Summary ---
:[address] Address [address] [address] Care Team Providers Name Role Phone Unassigned, Provider Primary Care Provider Unavailable Encounter Details Date Type Department Care Team Description 04/14/2010 Imaging [facility] Radiology Ul trasound [address] [place] [address] Social History Tobacco Use Types Packs/Day Years Used Date Smoking Tobacco: Never Alcohol Use Standard Drinks/Week Comments No 0 (1 standard drink = 0.6 oz pure alcoho l) Sex Assigned at Date Recorded Male 08/06/2021 5:59 PM CDT documented as of this encounter Plan of Treatment Not on filedocumented as of this encounter Procedures Procedure Name Priority Date/Time Associated Diagnosis Comme [facility] US LOWER EXTREMITY Routine 04/14/2010 11:23 AM [...] of bilateral lower extremity veins performed by circulation sales representative. Study technically difficult due to consi derable soft tissue swelling. FINDINGS: RIGHT: Nonocclusive thrombus in the dist al common femoral, proximal femoral and profunda femoris veins, better docu mented today. Remainder of the visualized femoral, popliteal and screen cleaner ior tibial veins are negative for DVT. [...] of bilateral lower extremity veins performed by circulation sales representative. Study technically difficult due to consi derable soft tissue swelling. FINDINGS: RIGHT: Nonocclusive thrombus in the dist al common femoral, proximal femoral and profunda femoris veins, better docu mented today. Remainder of the visualized femoral, popliteal and screen cleaner ior tibial veins are negative for DVT. [...] on filedocumented in this encounter Care Teams Orthotic/Prosthetic Practitioner Relationship Specialty Start Date End Date Unassigned, Provider PCP - General 11/28/01 05/21/[address] [place] [address] documented as of this encounter
--- OUTSIDE RECORDS SUMMARY | 2022-07-04 15:19 | XMS_ITS | Encounter Summary ---
:1945 Author Organization [facility] Address [address] [place] [address] Care Team Providers Name Role Phone Unassigned, Provider Primary Care Provider Unavailable Encounter Details Date Type Department Care Team Description 04/11/2010 Imaging [facility] [address] [place], [place] [phone] Social History Tobacco Use Types Packs/Day Years [...] on filedocumented in this encounter Care Teams Donor Relations Manager Relationship Specialty Start Date End Date Unassigned, Provider PCP - General 11/28/01 05/21/[address] [place] [address] documented as of this encounter
--- OUTSIDE RECORDS SUMMARY | 2022-07-04 15:19 | XMS_ITS | Encounter Summary ---
:1945 Author Organization [facility] Address [address] [address] Care Team Providers Name Role Phone Unassigned, Provider Primary Care Provider Unavailable Encounter Details Date Type Department Care Team Description 04/12/2010 Imaging [facility] Radiology Ul trasound [address] [place] [address] Social History Tobacco Use Types Packs/Day Years [...] of [place] US LOWER EXTREMITY Routine 04/12/2010 12:07 PM [...] on filedocumented in this encounter Care Teams Machine Sole Leveler Relationship Specialty Start Date End Date Unassigned, Provider PCP - General 11/28/01 05/21/[address] [place] [address] documented as of this encounter
--- OUTSIDE RECORDS SUMMARY | 2022-07-04 15:19 | XMS_ITS | Encounter Summary ---
:1945 Author Organization [facility] Address [address] [place] [address] Care Team Providers Name Role Phone Unassigned, Provider Primary Care Provider Unavailable Encounter Details Date Type Department Care Team Description 04/12/2010 Imaging [facility] MRI [address] [place] [address] Social History Tobacco Use Types Packs/Day Years [...] 11:01 AM CDT MRI THORACIC SPINE [facility] 04/12/2010 INDICATIONS: Status post tumor resection [...] Marcel M - 04/12/2010 MRI THORACIC SPINE [facility] 04/12/2010 INDICATIONS: Status post tumor resection . [...] on filedocumented in this encounter Care Teams Financial Services Manager Relationship Specialty Start Date End Date Unassigned, Provider PCP - General 11/28/01 05/21/[address] [place] [address] documented as of this encounter
--- OUTSIDE RECORDS SUMMARY | 2022-07-04 15:19 | XMS_ITS | Encounter Summary ---
:1945 Author Organization [facility] Address [address], [place] [address] Care Team Providers Name Role Phone Unassigned, [...] on filedocumented in this encounter Care Teams Advanced Practice Registered Nurse Relationship Specialty Start Date End Date Unassigned, Provider PCP - General 11/28/01 05/21/[address] [place] [address] documented as of this encounter
--- OUTSIDE RECORDS SUMMARY | 2022-07-04 15:19 | XMS_ITS | Encounter Summary ---
:1945 Author Organization [facility] Address [address] [place] [address] Care Team Providers Name Role Phone Unassigned, [...] on filedocumented in this encounter Care Teams Salon Professional Relationship Specialty Start Date End Date Unassigned, Provider PCP - General 11/28/01 05/21/[address] [place] [address] documented as of this encounter
--- OUTSIDE RECORDS SUMMARY | 2022-07-04 15:19 | XMS_ITS | Encounter Summary ---
:1945 Author Organization [facility] Address [address], [place] [address] Care Team Providers Name Role Phone Unassigned, Provider Primary Care Provider Unavailable Encounter Details Date Type Department Care Team Description 04/19/2010 Imaging [facility] [address] [place] [address] Social History Tobacco Use Types Packs/Day Years [...] on filedocumented in this encounter Care Teams Oil Well Logger Relationship Specialty Start Date End Date Unassigned, Provider PCP - General 11/28/01 05/21/[address] [place] [address] documented as of this encounter
--- OUTSIDE RECORDS SUMMARY | 2022-07-04 15:19 | XMS_ITS | Encounter Summary ---
:1945 Author Organization [facility] Address [address] [place] [address] Care Team Providers Name Role Phone Unassigned, Provider Primary Care Provider Unavailable Encounter Details Date Type Department Care Team Description 04/11/2010 Correspondence External to External, [place]id [place] [address] Social History Tobacco Use Types Packs/Day Years [...] on filedocumented in this encounter Care Teams Accounts Receivable Bookkeeper Relationship Specialty Start Date End Date Unassigned, Provider PCP - General 11/28/01 05/21/[address] [place] [address] documented as of this encounter
--- OUTSIDE RECORDS SUMMARY | 2022-07-04 15:19 | XMS_ITS | Encounter Summary ---
:1945 Author Organization [facility] Address [address] [place] [address] Care Team Providers Name Role Phone Unassigned, Provider Primary Care Provider Unavailable Encounter Details Date Type Department Care Team Description 04/13/2010 Imaging [facility]iology [address] [place], [place] [phone] Social History Tobacco Use Types Packs/Day Years [...] on filedocumented in this encounter Care Teams Enrolled Nurse Relationship Specialty Start Date End Date Unassigned, Provider PCP - General 11/28/01 05/21/[address] [place] [address] documented as of this encounter
--- OUTSIDE RECORDS SUMMARY | 2022-07-04 15:20 | XMS_ITS | Encounter Summary ---
:1945 Author Organization [facility] Address [address], [place] [address] Care Team Providers Name Role Phone Unassigned, [...] on filedocumented in this encounter Care Teams Caterers Helper Relationship Specialty Start Date End Date Unassigned, Provider PCP - General 11/28/01 05/21/[address] [place] [address] documented as of this encounter
--- OUTSIDE RECORDS SUMMARY | 2022-07-04 15:20 | XMS_ITS | Encounter Summary ---
:1945 Author Organization [facility] Address [address] [place] [address] Care Team Providers Name Role Phone Unassigned, Provider Primary Care Provider Unavailable Encounter Details Date Type Department Care Team Description 03/29/2010 Orders Only External to Unknown, Physici an [address] [place], [place] [phone] (Wo rk) Social History Tobacco Use Types [...] 03/29/2010 12:00 AM CDTAssociated Order(s): ECG TRACING [facility], Provider - 03/29/2010 12:00 AM CDTAssociated [...] available. Ordered by an unspecified provider. Transcriptions [facility], Provider - 03/29 12:00 AM CDT [...] on filedocumented in this encounter Care Teams Career Portals Teacher Relationship Specialty Start Date End Date Unassigned, Provider PCP - General 11/28/01 05/21/[address] [place] [address] documented as of this encounter
--- OUTSIDE RECORDS SUMMARY | 2022-07-04 15:20 | XMS_ITS | Encounter Summary ---
:1945 Author Organization [facility] Address [address] [place] [address] Care Team Providers Name Role Phone Unassigned, Provider Primary Care Provider Unavailable Encounter Details Date Type Department Care Team Description 04/05/2010 Invasive Imaging [facility] Intervention al Radiology [address] [place] [address] Social History Tobacco Use Types Packs/Day [...] performed over approximately a 9 year [facility] of time. 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 He is to undergo a resection of this recurrence early in the coming week. [facility] has requested that we perform a spinal [...] set that was exchanged for a 5 Indonesian sheath. A 5 Sammy [facility] C2 catheter was then advanced over [...] set that was exchanged for a 5 Indonesian sheath. A 5 Sammy [facility] C2 catheter was then advanced over [...] in this encounter Care Teams Head Of Merchandise Buying Relationship Specialty Start Date End Date Unassigned, Provider PCP - General 11/28/01 05/21/[address] [place] [address] documented as of this encounter
--- OUTSIDE RECORDS SUMMARY | 2022-07-04 15:20 | XMS_ITS | Encounter Summary ---
:1945 Author Organization [facility] Address [address], [place] [address] Care Team Providers Name Role Phone Unassigned, Provider Primary Care Provider Unavailable Reason for Visit Reason Onset Date Comments Surgery Questions 04/07/2010 Encounter Details Date Type Department Care Team Description 04/07/2010 Telephone Specialty Center 401 Garry Neff, Surgery Questions NeuroSurgery [address] [place] [address] [place] [address] [phone] (Wo rk) Social History Tobacco Use Types [...] - 04/07/2010 1:34 PM CDT Patient's Heather [phone] would like a call today she has some questions about the length of husbands surgery on April 11 documented in this encounter Plan of Treatment Not on filedocumented as of this encounter Visit Diagnoses Not on filedocumented in this encounter Care Teams Supervisor Fish Hatchery Relationship Specialty Start Date End Date Unassigned, Provider PCP - General 11/28/01 05/21/[address] [place] [address] documented as of this encounter
--- OUTSIDE RECORDS SUMMARY | 2022-07-04 15:20 | XMS_ITS | Encounter Summary ---
:1945 [facility] Address [address] [place] [address] Care Team Providers Name Role Phone Unassigned, Provider Primary Care Provider Unavailable Encounter Details Date Type Department Care Team Description 04/05/2010 Correspondence [facility] Radiology Radiology, MRI SAFETY SHEET [address] [place] [address] [place] [address] Social History Tobacco Use Types Packs/Day Years [...] on filedocumented in this encounter Care Teams Carpenter Cradle And Dolly Relationship Specialty Start Date End Date Unassigned, Provider PCP - General 11/28/01 05/21/10 [address] [place] [address] documented as of this encounter
--- OUTSIDE RECORDS SUMMARY | 2022-07-04 15:20 | XMS_ITS | Encounter Summary ---
:1945 Author [facility] Address [address] [place] [address] Care Team Providers Name Role Phone Unassigned, Provider Primary Care Provider Unavailable Reason for Visit Reason Comments Consult, New Patient Spinal Tumor Encounter Details Date Type Department Care Team Description 03/27/2010 Office Visit Specialty Center Garry Neff ndymoma (Primary 401 NeuroSurgery X, Dx) [address] [place] [address] [place], [place] [phone] (Wo rk) Social History Tobacco Use Types [...] appointment. Fax the pre-op to Jennifer at [phone] Have nothing to eat or drink starting at midnight the day of surgery. Scrub surgical site the evening prior to your surgery. Refer to surgery packet for instructions. Day of surgery, arrive at [facility] on 3rd Floor 2 hours [...] refills. Please call the Neurosurgery/Spine Clinic at [phone] with any further questions or concerns. documented in this encounter Progress Notes Garry Neff - 04/12/2010 8:15 AM CDT Entry Level Account Manager, Lucy Clemente - 03/27/2010 4:23 PM CDT This is a consult dictation on Carl Cullen is a 64 yr old male Date of : 1945 Primary Care Physician: Dr. Loretta Mcmahan Referring Physician: Dr. Yris Brownlee Chief Complaint: Thoracic spinal cord tumor Carl Cullen is a 64 yr old male who was referred by Dr. 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
--- OUTSIDE RECORDS SUMMARY | 2022-07-04 15:20 | XMS_ITS | Encounter Summary ---
:1945 Author Organization [facility] Address [address] [place] [address] Care Team Providers Name Role Phone Unassigned, Provider Primary Care Provider Unavailable Encounter Details Date Type Department Care Team Description 04/05/2010 Imaging [facility] [address] [place] [address] Social History Tobacco Use Types Packs/Day Years [...] filedocumented in this encounter Care Teams Iron Pellet Tester Relationship Specialty Start Date End Date Unassigned, Provider PCP - General 11/28/01 05/21/[address] [place] [address] documented as of this encounter
--- OUTSIDE RECORDS SUMMARY | 2022-07-04 15:20 | XMS_ITS | Encounter Summary ---
:1945 Author Organization [facility] Address [address], [place] [address] Care Team Providers Name Role Phone Unassigned, Provider Primary Care Provider Unavailable Reason for Visit Reason Onset Date Comments QUESTIONS, GENERAL 03/28/2010 Encounter Details Date Type Department Care Team Description 03/28/2010 Telephone Specialty Center 401 Garry Neff, QUESTIONS, GENERAL NeuroSurgery [facility] [address] [place] [address] [place] [address] [phone] (Wo rk) Social History Tobacco Use Types [...] questions. Geetha Osuna RN Neurosurgery Nurse Clinician [phone] Sweetie Sterling - 03/31/2010 10:17 AM CDT [...] on filedocumented in this encounter Care Teams Class 1 Owner Operator Relationship Specialty Start Date End Date Unassigned, Provider PCP - General 11/28/01 05/21/[address] [place] [address] documented as of this encounter
--- OUTSIDE RECORDS SUMMARY | 2022-07-04 15:20 | XMS_ITS | Encounter Summary ---
:1945 Author Organization [facility] Address [address], [place] [address] Care Team Providers Name Role Phone Unassigned, Provider Primary Care Provider Unavailable Encounter Details Date Type Department Care Team Description 04/05/2010 Surgery RH Operating Room Maurice Baron, FUSION APPROACH (STAND [address] Александр Duarte MD ALONE) THORACIC AND/[place] [address] LUMBAR POSTERIOR [phone] [place], [place] [address] (Wo rk) Social History [...] from the original note were not included. [address] [place] [address] Discharge Instructions for: Carl Cullen Thank you for choosing [facility] as your hospital. A copy [...] additional information about your medications, visit this [employer] website, [email or web address]. Current Discharge Medication List START taking these [...] for Stopping: Designated Pharmacy for Discharge Medications: [facility] If you were taking [...] of breath Community Resources NONE Contact Information [address] [address] For questions about your discharge instructions call the nursing unit : [phone] Emergency & Urgently Needed Care: For emergencies call 911 and/or get medical help right away. If you are a [facility] member and have medical needs after clinic hours you may call the CareLineat [phone] or . All medical devices (telemetry/IV/etc) unless otherwise ordered, have been removed before discharge. Smoking and second-hand smoke exposure: Smoking damages blood vessels, reduces the oxygen in your blood and makes your heart beat too fast. If you smoke you should quit. Everyone should avoid second- hand smoke. If you would like further assistance after your discharge, please contact [phone] or visit [email or web address].[email or web address] Quitting can offer further [...] weight will also be followed by the Showroom Consultant when you go in for your treatment. We hope you had a positive experience and that you can definitely recommend [facility] to yourfamily and friends. You???ll be receiving a survey in the mail in about 2 weeks and we look forward to hearing your feedback. When leaving your room at discharge, please stop at the nursing unit desk to check out. I understand my discharge instructions: Carl Martinegele (or Drinking Water Technician) documented in this encounter Medications at [...] Saturday at 12:30, he will arrive at [facility] at 10:30 They are aware he will need a Hibiclens wash the night and am prior to OR They also have Bactroban ointment, no questions on directions They have the clinic number if nay questions arise Plan: Discharge home today OR on Saturday at 12:30 Geetha Osuna RN Neurosurgery Nurse Clinician [phone] Radha Casper - 04/06/2010 5:42 AM CDT [facility] Progress Note (Nursing) Identify/Problem(s): S/P IR [...] Amanda Lindsay - 04/05/2010 10:38 PM CDT [facility] Patient's Valuables At Admission Patient Name: Carl Cullen Money Paper $: 0 Coins $: 0 Disposition of Money: Not Applicable Checkbook Checkbook: No Credit Cards/Licenses Name of Credit Cards: 0 Number of Credit Cards: 0 Social Security Card: No Passport: No Drivers' License: No Government ID: No Disposition of Cards/Licenses: Not Applicable Jewelry Jewelry: No Description of Jewelry: 0 Watch Watch: No [place] #: 0 Items Belonging to Other People Items Belonging to Other People: No No items were sent to the A/C Technician's Office. I understand that I assume full responsibility for all clothing, personal items, or valuables retained by me in my hospital room. Any unclaimed personal items deposited into the custody of the hospital will be disposed of by the hospital if they are not claimed within 180 days of discharge. Patients' Signature Witness Aircraft Painter Drinking Water Technician's Signature Witness (Print this note to be included in the patient valuables pouch.) I have received all of my belongings at discharge: Patient Signature: Date: Staff Signature: Date: --- End of Report --- Marimar Tomas, PharmD - 04/05/2010 8:03 PM CDT [facility] Clinical Pharmacy Medication Reconciliation Note Medication [...] PHARMACIST NAME: Marimar Tomas PHARMD Phone/Pager #: [phone] --- End of Report --- Radha Bower - 04/05/2010 7:34 PM CDT 1830- arrived to unit from IR , alert and oriented. Pt does straight cath himself, right groin CDI,latest vs BP 146/90 Pulse 108 Temp(Src) 97.4 ??F (36.3 ??C) (Oral) Resp 17 Ht 5' 10 (1.778 m) Wt 104.327 kg (230 lb) SpO2 97% Martha Thomas - 04/05/2010 4:45 PM CDT [facility] PM&R Date of service: 04/05/2010 Diagnosis: [...] Last change on 03/09/2010 Pump serial number: [id number] Infusion drug: Baclofen Concentration: 1,000 mcg/ml Infusion mode: simple continuous Dose per day: baclofen 225.6 mcg/day Onward volume 6.2 ml Low reservoir alarm volume [...] or questions. Thank you, Martha South MD [phone] --- End of Report --- Sayra Renteria [...] Donnie Bean - 04/05/2010 5:39 PM CDT [facility] Radiology Procedure Note Radiologist: Donnie Bean [...] in this encounter OR Notes H&P - [facility], Provider - 03/29/2010 12:00 AM CDT documented in this encounter Miscellaneous Notes Media - [facility], PROVIDER - 04/25/2010 12:00 AM CDT Media - [facility], PROVIDER - 04/06/2010 12:00 AM CDT Media - [facility], PROVIDER - 04/05/2010 12:00 AM CDT Media [...] Organization Address City/State/ZIP Code Phon e Number [address] [address] [place], [place] [phone] IR SPINAL SELECT EACH VESSEL (04/05/2010 5:48 [...] recurrence early in the coming week. [facility] requested that we perform [...] set that was exchanged for a 5 Kyrgyz sheath. A 5 [facility] C2 catheter was then advanced over the [...] set that was exchanged for a 5 Kyrgyz sheath. A 5 [facility] C2 catheter was then advanced over the [...] Organization Address City/State/ZIP Code Phon e Number [address] [address] [place], [place] [phone] BASIC METABOLIC PANEL (04/05/2010 10:52 AM CDT) [...] MD LAB_1 Performing Organization Address [facility] Phon e Number [address] [address] [place], [place] [phone] ABO Rh & Antibody Screen (Type & Screen) (04/05/2010 8:29 AM CDT) [facility] gist Method Time Signature Crossmatch 04/08/2010 [facility] Expires ABO/RH(D) A NEGATIVE [facility] Antibody NEGATIVE [facility] Screen Specimen Anatomical Collection Method Collection Time Receive d Time (Source) Location / / Volume Laterality 04/05/2010 8:29 AM 0 8:37 CDT AM CDT Authorizing Provider Result Yuliet Baron MD LAB_1 Performing Organization Address [facility] Phon e Number [address] [address] [place], [place] [phone] ABO/RH(D) RETYPE (04/05/2010 8:27 AM CDT) P athologist Signature ABO/RH(D) A NEGATIVE [facility] Specimen Anatomical Collection Method Collection Time Receive d Time (Source) Location / / Volume Laterality 04/05/2010 8:27 AM 0 8:55 CDT AM CDT Authorizing Provider Result Yuliet Baron MD LAB_1 Performing Organization Address [facility] Phon e Number [address] [address] [place], [place] [phone] aPTT (Activated Partial Thromboplastin Time) (04/05/2010 8:27 AM CDT) P athologist Signature PTT 26.0 24.0 - 37.0 [facility] sec Specimen Anatomical Collection Method Collection Time Receive d Time (Source) Location / / Volume Laterality 04/05/2010 8:27 AM 0 8:39 CDT AM CDT Authorizing Provider Result Yuliet Baron MD LAB_1 Performing Organization Address City[facility]/ZIP [facility] Phon e Number [address] [address] [place], [place] [phone] INR/Protime (PT/INR) (04/05/2010 8:27 AM CDT) P athologist Signature Protime 12.3 12.0 - 14.5 [facility] sec INR 0.9 [facility] Specimen Anatomical Collection Method Collection Time Receive d Time (Source) Location / / Volume Laterality 04/05/2010 8:27 AM 0 8:39 CDT AM CDT Maurice Baron MD LAB_1 Performing Organization Address [facility] Phon e Number [address] [address] [place], [place] [phone] EKG IP (04/05/2010 12:00 AM CDT) Specimen (Source) Anatomical Location Collection Method / Collectio n Time Received Time / Laterality Volume 04/05/2010 Narrative This result has an attachment that is no t available. 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 Mcmahan at [facility] in [place], [place] Patient Identity Confirmed By: Full name [...] will continue to assess andmake appropriate referrals/interventions PSYCHOSOCIAL/SPIRITUAL/ANGLICAN/CULTURAL/ABUSE/CHEMICAL Suicide Health Inventory Do you currently [...] Lines & Tubes: 1 Medications (CV or OIL REFINERY OPERATOR): 3 Falls Risk Score: (0-4 Low) (5-10 [...] Garcia) documented in this encounter Care Teams Hat Forming Machine Operator Relationship Specialty Start Date End Date Unassigned, Provider PCP - General 11/28/01 05/21/[address] [place] [address] documented as of this encounter
--- OUTSIDE RECORDS SUMMARY | 2022-07-04 15:20 | XMS_ITS | Encounter Summary ---
:1945 Author Organization [facility] Address [address] [place] [address] Care Team Providers Name Role Phone Unassigned, Provider Primary Care Provider Unavailable Encounter Details Date Type Department Care Team Description 04/05/2010 Imaging [facility] [address] [place] [address] Social History Tobacco Use Types Packs/Day Years [...] on filedocumented in this encounter Care Teams Personnel Technician Relationship Specialty Start Date End Date Unassigned, Provider PCP - General 11/28/01 05/21/[address] [place] [address] documented as of this encounter
--- OUTSIDE RECORDS SUMMARY | 2022-07-04 15:20 | XMS_ITS | Encounter Summary ---
:1945 Author Organization [facility] Address [address] [place] [address] Care Team Providers Name Role Phone Unassigned, [...] on filedocumented in this encounter Care Teams Moss Gatherer Relationship Specialty Start Date End Date Unassigned, Provider PCP - General 11/28/01 05/21/[address] [place] [address] documented as of this encounter
--- OUTSIDE RECORDS SUMMARY | 2022-07-04 15:20 | XMS_ITS | Encounter Summary ---
:1945 Author Organization [employer] [place] Address [address], [place] [address] Care Team Providers Name Role Phone Unassigned, Provider Primary Care Provider Unavailable Encounter Details Date Type Department Care Team Description 04/05/2010 - Hospital Encounter RH S8 Maurice Baron Ependymoma; 04/06/2010 [address] [place] [address] [address] [phone] [place], [place] [id number] (Wo rk) Social History Tobacco Use Types [...] from the original note were not included. [address] [place] [id number] Discharge Instructions for: Carl Cullen Thank you for choosing [facility] as your hospital. A [...] additional information about your medications, visit this [employer] website, [email or web address]. Current Discharge Medication List START taking these [...] for Stopping: Designated Pharmacy for Discharge Medications: [facility] If you were taking a [...] of breath Community Resources NONE Contact Information [address] [address] For questions about your discharge instructions call the nursing unit : [phone] Emergency & Urgently Needed Care: For emergencies call 911 and/or get medical help right away. If you are a [facility] member and have medical needs after clinic hours you may call the CareLineat [phone] or . All medical devices (telemetry/IV/etc) unless otherwise ordered, have been removed before discharge. Smoking and second-hand smoke exposure: Smoking damages blood vessels, reduces the oxygen in your blood and makes your heart beat too fast. If you smoke you should quit. Everyone should avoid second- hand smoke. If you would like further assistance after your discharge, please contact [phone] or visit [email or web address] can offer further [...] weight will also be followed by the Material Loader when you go in for your treatment. [...] my discharge instructions: Carl Dubon [place] (or Analytical Lead) documented in this encounter Medications at Time [...] Linda Zuniga - 04/06/2010 10:[address] [facility] Hospital Discharge Note - Nursing Admission Date/Time: [...] Saturday at 12:30, he will arrive at [facility] at 10:30 They are aware he will need a Hibiclens wash the night and am prior to OR They also have Bactroban ointment, no questions on directions They have the clinic number if nay questions arise Plan: Discharge home today OR on Saturday at 12:30 Geetha Osuna RN Neurosurgery Nurse Clinician [phone] Radha Casper - 04/06/2010 5:[address] [facility] Hospital Progress Note (Nursing) Identify/Problem(s): S/P IR [...] Amanda Lindsay - 04/05/2010 10:38 PM CDT [facility] Patient's Valuables At Admission Patient Name: Carl Cullen Money Paper $: 0 Coins $: 0 Disposition of Money: Not Applicable Checkbook Checkbook: No Credit Cards/Licenses Name of Credit Cards: 0 Number of Credit Cards: 0 Social Security Card: No Passport: No Drivers' License: No Government ID: No Disposition of Cards/Licenses: Not Applicable Jewelry Jewelry: No Description of Jewelry: 0 Watch Watch: No [place] #: 0 Items Belonging to Other People Items Belonging to Other People: No No items were sent to the [facility]. I understand that I assume full responsibility for all clothing, personal items, or valuables retained by me in my hospital room. Any unclaimed personal items deposited into the custody of the hospital will be disposed of by the hospital if they are not claimed within 180 days of discharge. Patients' Signature Witness Road Grader Operator Analytical Lead's Signature Witness (Print this note to be included in the patient valuables pouch.) I have received all of my belongings at discharge: Patient Signature: Date: Staff Signature: Date: --- End of Report --- Marimar Tomas, PharmD - 04/05/2010 8:03 PM CDT [facility] Clinical Pharmacy Medication Reconciliation Note Medication History: [...] PHARMACIST NAME: Marimar Tomas PHARMD Phone/Pager #: [phone] --- End of Report --- Radha Bower - 04/05/2010 7:34 PM CDT 1830- arrived to unit from IR , alert and oriented. Pt does straight cath himself, right groin CDI,latest vs BP 146/90 Pulse 108 Temp(Src) 97.4 ??F (36.3 ??C) (Oral) Resp 17 Ht 5' 10 (1.778 m) Wt 104.327 kg (230 lb) SpO2 97% Martha Thomas - 04/05/2010 4:45 PM CDT [facility] PM&R Date of service: 04/05/2010 Diagnosis: No [...] Last change on 03/09/2010 Pump serial number: [id number] Infusion drug: Baclofen Concentration: 1,000 mcg/ml Infusion mode: simple continuous Dose per day: baclofen 225.6 mcg/day [place] volume 6.2 ml Low reservoir alarm volume [...] or questions. Thank you, Martha South MD [phone] --- End of Report --- Sayra Renteria [...] Donnie Bean - 04/05/2010 5:39 PM CDT [facility] Radiology Procedure Note Radiologist: Donnie Bean MD [...] saturday. Report completed by Donnie Bean MD [facility], PROVIDER - 04/05/2010 12:00 AM CDTAssociated Order(s): EKG IP; EKG IP documented in this encounter OR Notes H&P - [facility], Provider - 03/29/2010 12:00 AM CDT documented in this encounter Miscellaneous Notes [place] - [facility], PROVIDER - 04/25/2010 12:00 AM CDT [facility], PROVIDER - 04/06/2010 12:00 AM CDT [place] - [facility], PROVIDER - 04/05/2010 12:00 AM CDT [facility], PROVIDER - 04/05/2010 12:00 AM CDT [...] Organization Address City/State/ZIP Code Phon e Number [address] [id number] [place], [place] [phone] IR SPINAL SELECT EACH VESSEL (04/05/2010 5:48 [...] this recurrence early in the coming week. [facility] rosurgery has requested that we perform a [...] set that was exchanged for a 5 Welsh sheath. A 5 [facility] C2 catheter was then advanced over the [...] set that was exchanged for a 5 Welsh sheath. A 5 [facility] C2 catheter was then advanced over the [...] Organization Address City/State/ZIP Code Phon e Number [address] [address] [place], [place] [phone] BASIC METABOLIC PANEL (04/05/2010 10:52 AM CDT) [...] MD LAB_1 Performing Organization Address [facility] Phon e Number [address] [address] [place], [place] [phone] ABO Rh & Antibody Screen (Type & Screen) (04/05/2010 8:29 AM CDT) [facility] gist Method Time Signature Crossmatch 04/08/2010 [facility] Expires ABO/RH(D) A NEGATIVE [facility] Antibody NEGATIVE [facility] Screen Specimen Anatomical Collection Method Collection Time Receive d Time (Source) Location / / Volume Laterality 04/05/2010 8:29 AM 0 8:37 CDT AM CDT Maurice Baron MD LAB_1 Performing Organization Address [facility] Phon e Number [address] [address] [place], [place] [phone] ABO/RH(D) RETYPE (04/05/2010 8:27 AM CDT) P athologist Signature ABO/RH(D) A NEGATIVE [facility] Specimen Anatomical Collection Method Collection Time Receive d Time (Source) Location / / Volume Laterality 04/05/2010 8:27 AM 0 8:55 CDT AM CDT Maurice Baron MD LAB_1 Performing Organization Address [facility] Phon e Number [address] [address] [place], [place] [phone] aPTT (Activated Partial Thromboplastin Time) (04/05/2010 8:27 AM CDT) P athologist Signature PTT 26.0 24.0 - 37.0 [facility] sec Specimen Anatomical Collection Method Collection Time Receive d Time (Source) Location / / Volume Laterality 04/05/2010 8:27 AM 0 8:39 CDT AM CDT Maurice Baron MD LAB_1 Performing Organization Address City/[facility]/ZIP [facility] Phon e Number [address] [address] [place], [place] [phone] INR/Protime (PT/INR) (04/05/2010 8:27 AM CDT) P athologist Signature Protime 12.3 12.0 - 14.5 [facility] sec INR 0.9 [facility] Specimen Anatomical Collection Method Collection Time Receive d Time (Source) Location / / Volume Laterality 04/05/2010 8:27 AM 0 8:39 CDT AM CDT Maurice Baron MD LAB_1 Performing Organization Address [facility] Phon e Number [address] [address] [place], [place] [phone] EKG IP (04/05/2010 12:00 AM CDT) Specimen (Source) Anatomical Location Collection Method / Collectio n Time Received Time / Laterality Volume 04/05/2010 Narrative This result has an attachment that is no t available. 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 Mcmahan at [facility] in [place], [place] Patient Identity Confirmed By: Full name [...] will continue to assess andmake appropriate referrals/interventions PSYCHOSOCIAL/SPIRITUAL/ALEVISM/CULTURAL/ABUSE/CHEMICAL Suicide Health Inventory Do you currently have [...] Lines & Tubes: 1 Medications (CV or CAD DEVELOPER): 3 Falls Risk Score: (0-4 Low) (5-10 [...] Starting on Sat04/05/10 at 1218, Use after FIRE CODE INSPECTOR completed. Maximum Daily Acetaminophen dose for patients [...] Garcia) documented in this encounter Care Teams Burner Technician Relationship Specialty Start Date End Date Unassigned, Provider PCP - General 11/28/01 05/21/[address] [place] [phone] documented as of this encounter
--- OUTSIDE RECORDS SUMMARY | 2022-07-04 15:20 | XMS_ITS | Encounter Summary ---
:1945 Author Organization [email or web address] Address [address] [address] Care Team Providers Name Role Phone Unassigned, Provider Primary Care Provider Unavailable Encounter Details Date Type Department Care Team Description 04/11/2010 Surgery RH Operating Room Maurice Baron, FUSION APPROACH (STAND 640 Александр Duarte MD ALONE) THORACIC AND/[place] [address] LUMBAR POSTERIOR [phone] [place], [place] [address] (Wo rk) Social History [...] Discharge medications: 1. 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 Percocet 1-2 tabs [...] in Dr Baron clinic as scheduled at [address] [place] [address]. Patient also instructed [facility] clinic or hospital for any questions or concerns. Patient verbalizes understanding and states no further questions at this time. Scripts on chart Lucy Parker PA-C documented in this encounter Discharge Instructions Discharge InstructionsBernard Alcantar - 04/20/2010 11:20 AM CDT Images from the original note were not included. [address] [place] [address] Discharge Instructions for: Jie Cullen Thank you for choosing [facility] as your hospital. A copy of [...] additional information about your medications, visit this [employer] website, [email or web address]. Current Discharge Medication List START taking [...] Neurosurgery clinic with any concerns or changes. [phone] Regular Diet Clinic Referral CLINIC: [facility]: Neurosurgery; [phone]; [address] [place] [address] DOCTORS NAME: Dr. 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 If you are a [facility] member and have medical needs after clinic hours you may call the CareLineat [phone] or . All medical devices (telemetry/IV/etc) unless otherwise ordered, have been removed before discharge. Smoking and second-hand smoke exposure: Smoking damages blood vessels, reduces the oxygen in your blood and makes your heart beat too fast. If you smoke you should quit. Everyone should avoid second- hand smoke. If you would like further assistance after your discharge, please contact [phone] or visit [email or web address] can offer further [...] understand my discharge instructions: Jie Cullen (or Drupal Architect) documented in this encounter Medications at Time [...] Elaine Brown - 04/20/2010 12:38 PM CDT [facility] Care Management Discharge Note Admission Date/Time: 04/11/2010 11:22 AM Attending MD: Maurice Baron Discharge Plan: Anticipated Discharge Date: 04/20/2010 Anticipated Discharge Time: 1 pm Patient to be discharged: to Home. Patient to be accompanied by: spouse. Transportation arranged for discharge: family Patient/Family aware of transportation benefit. Discharge equipment needs and arrangements: family requests medical records be sent to pcp in [place]. I obtained the release of information form to be done and info to be sent to Dr. Loretta Mcmahan MD Followup: no further needs Discharge Disposition Code: 01: Discharged to home or self-care (routine discharge) Report completed by Elaine Brown RN, Pager Number [phone] --- End of Report --- Criselda Rodriguez - 04/20/2010 12:09 PM CDT [facility] Medicine Progress Note Date of service: 04/20/2010 [...] PMD for further management (Dr. Meadows at [facility]). Acute blood loss anemia. No hx [...] patient for above problems Criselda Rodriguez PA-C [facility] Medicine [phone] 04/20/2010 Trudi Locke - 04/20/2010 8:26 AM CDT [facility] [place] Physical Therapy Missed Visit Physical Therapy attempted [...] Loretta Osman - 04/20/2010 6:15 AM CDT [facility] Progress Note (Nursing) Identify/Problem(s): GI fuction Desired Outcome(s): Pt will have return of GI function. Evaluation: Pt had large amounts of incont. liquid stool during the night. Abd remains round but less firm. Pt denies pain. VSS Plan: Discuss plan of care with pt and family. Loretta Osman RN --- End of Report --- Malika Maradiaga RN - 04/19/2010 11:23 PM CDT [facility] Progress Note (Nursing) Identify/Problem(s): Constipation, skin integrity [...] Criselda Rodriguez - 04/19/2010 4:32 PM CDT [facility] Medicine Progress Note Date of service: 04/19/2010 [...] patient for above problems Criselda Rodriguez PA-C [facility] Medicine [phone] 04/19/2010 Bernard Alcantar - 04/19/2010 4:08 PM CDT [facility] Progress Note (Nursing) Identify/Problem(s): Skin Desired Outcome(s): [...] Veronica Christian - 04/19/2010 3:18 PM CDT [facility] Care Management Social Work Follow Up Note Admission Date/Time: 04/11/2010 11:22 AM Attending MD: Maurice Baron Data Chart reviewed; discussed with interdisciplinary team. Met throughout the day with patient, . Discussed case with RAND Lyman, Dr. Flores PM&R, RN. Planning for patient to have baclafin pump refilled with Dr. Hooper at [facility] in [place], probably tomorrow at 13:00. Planning to have in-home therapy with [facility], whom patient is familiar with. (# [phone]) (fax# [phone]). Orders faxed. First appt is Saturday at [...] and communication. Has w/c van here in [place] now, and will take patient home tonight if medically stable, else go home tomorrow. Updated Plan of Care Anticipated Discharge Date: today or tomorrow Anticipated Discharge Plan: Home with home PT Plan for Follow Up: Will follow for any further d/c needs if still here tomorrow. Report completed by Veronica Christian [facility], Pager Number [phone] (W, TH, F) --- End of Report --- Veronica Christian - 04/19/2010 2:54 PM CDT [facility] Transfer Orders to Home Health [...] Neurosurgery clinic with any concerns or changes. [phone] Regular Diet Clinic Referral Order Comments: CLINIC: [facility]: Neurosurgery; [phone]; [address] [place] [address] DOCTORS NAME: Dr. Baron WHEN TO BE SEEN: On (date) April 27 at 10:20 REASON FOR APPOINTMENT: MD follow up Physical Therapy (PT) Referral Order Comments: EVALUATE AND TREAT Occupational Therapy (OT) Referral Order Comments: EVALUATE AND TREAT Discharge Diagnosis Order Comments: S/p resection of thoracic spine ependymoma Clinic Referral Order Comments: CLINIC: [facility] Neuro-Oncology Department DOCTORS NAME: available physician WHEN [...] have been electronically signed. (In accordance with [place] Fed. Regulation Set, Fed A0232 - [...] in ependymoma. Given where he lives, the [facility] is his best option. I spoke with the [facility] Neuro Oncology clinic this morning; unfortunately I was never able to talk directly to their on-call physician Dr. Alex. They would be happy to see Mr. 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 I gave his the following contact information to schedule an appointment when she feels sheis able to get him to [place]: [facility] Neuro Oncology Clinic Pt ID# [id number] I have added this information to his discharge orders and have asked the Subsurface Augmentee Operator to aide ingetting patient a copy of his medical records and a CD of the imaging performed here to take with him. Hematology/Oncology will sign off now. If there are any further questions, please contact the on-call Hematology/Oncology fellow. Patient and plan discussed with Dr. Henry. Abby Ellsworth - 04/19/2010 11:23 AM CDT [facility] Occupational Therapy Missed Visit Treatment attempted today. Unable to start treatment due to: Spoke with pt and about further concerns. No further concernsneeded or questions. Possible d/c to home today with assistance from spouse. Agree with this. Will attempt treatment again if plan of care changes. . AV Matos/Kateryna (pager) OT Dept #: [phone] - OT Weekend Pager #: [phone] - [facility] Main #: [phone] --- End of Report --- Trudi Locke - 04/19/2010 9:[address] [facility] Physical Therapy Progress Note PT Visit Room/Bed: [id number] Patient Seen: bedside Diagnosis: Encounter Diagnoses Code [...] 344.1 Paraplegia ??? 707.00F Pressure Ulcer ??? 28561 CAREPLAN: BACLOFEN Pain: not bad per pt [...] minutes Trudi Locke PT Phone number is [phone] Pager: [phone] --- End of Report --- Director Of Preclinical Research, Lucy Clemente - 04/19/2010 9:10 AM CDT [facility] NeuroSurgery Progress Note Pt doing well [...] Durand RN - 04/19/2010 7:22 AM CDT [facility] Progress Note (Nursing) Identify/Problem(s): Skin Integrity [...] Maradiaga RN - 04/18/2010 10:28 PM CDT [facility] Progress Note (Nursing) Identify/Problem(s): Activity, skin integrity [...] Martha Thomas - 04/18/2010 6:34 PM CDT [facility] PM&R Progress Note () Date of [...] Bernard Alcantar - 04/18/2010 2:37 PM CDT [facility] Hospital Progress Note (Nursing) Identify/Problem(s): Activity Desired [...] Trudi Locke - 04/18/2010 1:24 PM CDT [facility] IP Physical Therapy Progress Note PT Visit Room/Bed: 68278/[id number] Patient Seen: bedside Diagnosis: Encounter Diagnoses Code [...] minutes Trudi Locke PT Phone number is [phone] Pager: [phone] --- End of Report --- Director Of Preclinical Research, Lucy Clemente - 04/18/2010 1:21 PM CDT [...] Parker PA-C --- End of Report --- Taina Brantley - 04/18/2010 1:10 PM CDT [facility] Care Management Primer Assembler Follow Up Note Admission Date/Time: 04/11/2010 11:22 [...] would like pt's name on list at [facility] (ph: [phone], fx: [phone])in [place]. I made referral to this facility and spoke with admission coordinator, Mer Simpson. She did not receive initial fax that was sent over via [employer], so I manually faxed paperwork to her [...] completed by Tania Brantley RN, Pager Number [phone] --- End of Report --- Tania Brantley - 04/18/2010 1:10 PM CDT [facility] Care Management Primer Assembler Follow Up Note Admission Date/Time: 04/11/2010 11:22 [...] would like pt's name on list at [facility] (ph: [phone], fx: [phone])in [place]. I made referral to this facility and spoke with admission coordinator, Mer Simpson. She did not receive initial fax that was sent over via [employer], so I manually faxed paperwork to her [...] states pt [facility] I spoke to pt and the other day re: hc and they have no agency preference. I made a referral to [facility] ph: [phone] Fx: [phone]. Spoke with [place] in intake. Informed her pt may go to tcu but likely home care. Requested a visit for day after discharge. They can provide PT and SNV for incision check, skin assessment, vs, and inr draws. [place] will need call in am to confirm whether pt needs home care or not. Also received call back from Mer at [facility]. They have accepted pt for admission [...] up with primary rehab MD, Dr. Hooper (Olga) vs having her possibly do it on day of dc. Have not had a chance to discuss this with . Will try to have conversation in am. Updated Plan of Care Anticipated Discharge Date: 04/19/10 Anticipated Discharge Plan: tcu likely Plan for Follow Up: in am Report completed by Tania Brantley RN, Pager Number [phone] --- End of Report --- Abby Ellsworth - 04/18/2010 12:01 PM CDT [facility] Occupational Therapy Progress Note Treatment Summary: [...] Abby Ellsworth OTR/L (pager) OT Dept #: [phone] - OT Weekend Pager #: [phone] - [facility] [place] Main #: [phone] Addendum: issued pt a yellow theraband for pt to use in room and tubi laborer road for w/c brakes. --- End of Report --- Criselda Rodriguez - 04/18/2010 10:18 AM CDT [facility] Medicine Progress Note Date of service: 04/18/2010 [...] patient for above problems Criselda Rodriguez PA-C [facility] Medicine [phone] 04/18/2010 Radha Long - 04/18/2010 4:24 AM CDT [facility] Progress Note (Nursing) Identify/Problem(s): Activity Pain Skin [...] Devon Hylton - 04/17/2010 10:30 PM CDT [facility] Progress Note (Nursing) Identify/Problem(s): Pain/skin status [...] Romelia Kohli - 04/17/2010 4:42 PM CDT [facility] Progress Note (Nursing) Identify/Problem(s): Activity Neuro Status [...] monitor for signs of disorientation Romelia Kohli, VALEIRE --- End of Report --- Romelia Kohli - 04/17/2010 3:21 PM CDT Problem: Falls Risk Goal: Moderate Risk (5-10): Fall Prevention I applied all active moderate risk falls prevention interventions. Tania Brantley - 04/17/2010 2:05 PM CDT [facility] Care Management Primer Assembler Initial Assessment Admission Date/Time: 04/11/2010 11:22 AM Attending MD: Maurice Baron Data Jie Cullen was referred to this Primer Assembler for discharge planning. Chart reviewed, discussed with interdisciplinary team, as well as with patient and family. Jie Cullen was admittedto S10 for Malignant Neoplasm of Brain, Unspecified Site [191.9] (MALIG GANGA BRAIN NOS). Insurance: Payor: MEDICARE PART B ONLY [id number] Plan: MEDICARE PART B ONLY Product Type: Medicare Current Living Situation: Patient lives with their spouse. Support System: and children Services Involved: none, has been to [facility] in past Additional Data: Pt's primary MD is Dr. Loretta Mcmahan at the [facility] Coordination of Care and Referrals: Provided [...] both really want [place]. They feel just from yesterday, pt has [...] completed by Tania Brantley RN, Pager Number [phone] --- End of Report --- Trudi Locke - 04/17/2010 1:23 PM CDT [facility] IP Physical Therapy Progress Note PT Visit Room/Bed: [id number] Patient Seen: bedside Diagnosis: Encounter Diagnoses Code [...] minutes. Trudi Locke, PT Phone number is [phone] Pager: [phone] --- End of Report --- Abby Ellsworth - 04/17/2010 11:54 AM CDT [facility] Occupational Therapy Progress Note Treatment Summary: [...] vanessa Ellsworth OTR/L (pager) OT Dept #: [phone] - OT Weekend Pager #: [phone] - [facility] Main #: [phone] --- End of Report --- Criselda Rodriguez - 04/17/2010 11:45 AM CDT [facility] Medicine Progress Note Date of service: 04/17/2010 [...] patient for above problems Criselda Rodriguez PA-C [facility] Medicine [phone] 04/17/2010 Director Of Preclinical Research, Lucy Clemente - 04/17/2010 11:21 AM CDT [facility] NeuroSurgery Progress Note Did discuss with . [...] TCU placement. Did speak with Tania, case management social worker. INR not therapeutic, continue with Lovenox until INR 2-3 Repeat INR tomorrow No BM, try MOM or dulcolax suppository that are ordered Can also give prunes or prune juice Keep pt off buttocks for too long Hgb 9.0, but pt doing well no need for transfusion Lucy Parker PA-C --- End of Report --- Loretta Osman - 04/17/2010 7:54 AM CDT [facility] Progress Note (Nursing) Identify/Problem(s): Pain Desired Outcome(s): [...] Maradiaga RN - 04/16/2010 10:56 PM CDT [facility] Progress Note (Nursing) Identify/Problem(s): Neuro status [...] Anthony Genao - 04/16/2010 3:38 PM CDT [facility] Medicine Progress Note (MD) Date of service: [...] Report Completed by: Gena Genao MD Pager: [phone] Loretta Osman - 04/16/2010 7:01 AM CDT [facility] Progress Note (Nursing) Identify/Problem(s): Comfort Desired Outcome(s): Pt will be comfortable Evaluation: Pt did not request pain medication all night. Repositioned Q2 prn. Alert and oriented. VSS. No further episodes of confusion. Plan: Discuss plan of care. Loretta Osman RN --- End of Report --- Amanda Lindsay - 04/15/2010 7:49 PM CDT [facility] Progress Note (Nursing) Identify/Problem(s): Pain management. Skin [...] Amanda Lindsay - 04/15/2010 7:28 PM CDT [facility] MD Notified Note Name of MD notified: [...] Ayon, LARISA - 04/15/2010 12:41 PM CDT [facility] IP Physical Therapy Progress Note FELTING MACHINE OPERATOR HELPER Visit Number 1 04/15/2010 Room/Bed: [id number] Patient Seen: bedside Diagnosis: Encounter Diagnoses Code [...] A of 3 and extra time. This check writer left to work with another pt, [...] minutes Amira Ayon PTA Phone number is [phone] Pager: [phone] --- End of Report --- Esmer Richardson - 04/14/2010 10:19 PM CDT [facility] Progress Note (Nursing) Identify/Problem(s): Pain activity Desired Outcome(s): Pt will have adequate pain control Pt will have increased activity Evaluation: VSS, continues to be hypotensive and slightly tachy, tolerating reg diet, dangled at side of bed with assist of 2, Senior Program Analyst rep came to see pt and refit [...] Yen Crum - 04/14/2010 4:55 PM CDT [facility] Complementary Care Therapy Note Complementary Care Therapy Massage?: yes Complementary Care Floor Location: [facility] Therapy explained and offered to patient/family: yes [...] s10. Prior to entering the room, this check writer reviewed the patient's chart, and consulted with the patient's nurse. Upon entering the room, this check writer introduced herself, explained massage therapy, and [...] Massage ends when brace man arrives. This check writer informs RN of pt's report that R arm is falling asleep. Plan Complementary Care Therapies are available to this patient while an inpatient, as schedule allows. Thank you for referring this patient to Complementary Care Therapies. Report Completed by: SIMON Garcia --- End of Report --- Tania Brantley - 04/14/2010 4:06 PM CDT [facility] Primer Assembler Progress Note Data: Attempted to meet with [...] OT state [place] as at present he [...] the weekend. [place]. Need to discuss with pt and , have not been able to reach and pt too sedated for conversation at this time. Follow up on Saturday. Report completed by Tania Brantley RN, Pager Number [phone] --- End of Report --- Carlene Silver RN - 04/14/2010 3:36 PM CDT Problem: Falls Risk Goal: Moderate Risk (5-10): Fall Prevention I applied all active moderate risk falls prevention interventions. AT Carlene Silver RN - 04/14/2010 3:00 PM CDT [facility] Progress Note (Nursing) Identify/Problem(s): Pain. Activity. Desired [...] Cecile Browne - 04/14/2010 1:34 PM CDT [facility] Medicine Progress Note Date of Service: [...] for further management with Ependymoma CORINA LeeC [facility] Medicine [phone] Total time spent was 35 mintues, >50% was in direct pt contact and C&C of the above issues. Trudi Locke - 04/14/2010 12:54 PM CDT [facility] IP Physical Therapy Progress Note PT Visit Room/Bed: [facility]/[id number] Patient Seen: bedside Diagnosis: Encounter Diagnoses Code [...] in R LE per pt report. This check writer spoke with nursing who received clarification [...] minutes Trudi Locke, PT Phone number is [phone] Pager: [phone] --- End of Report --- Abby Ellsworth - 04/14/2010 12:07 PM CDT [facility] [place] Occupational Therapy Progress Note Treatment Summary: The [...] Abby Ellsworth OTR/L (pager) OT Dept #: [phone] - OT Weekend Pager #: [phone] - [facility] [place] Main #: [phone] --- End of Report --- Archana Pace - 04/14/2010 11:20 AM CDT [facility] Office Nurse Practitioner Department Progress Note Online Editor Notes: Ongoing supportive visit with Heather this [...] after his surgery. They continue to appreciate gsa coordinator presence, support and prayers as well as investment professional visits. Plan: Office Nurse Practitioner remains available to pt and/or family for spiritual and emotional support as needed or requested. Report Completed by: Archana Pace, [facility] Staff Online Editor --- End of Report --- Brittny Jasso - 04/14/2010 9:59 AM CDT [facility] NeuroSurgery Progress Note Date: 04/14/2010 Vitals Temp [...] has been reviewed by Dr. Maurice Baron. Brittyn Jasso RN, ACNS-, CNRN Neuroscience Clinical Nurse Specialist [phone] --- End of Report --- Maurice Baron - 04/14/2010 9:59 AM CDT I have examined the patient and reviewed the plan of care and agree with the previous note. Maurice Baron MD 04/14/2010, 11:19 AM Halina Curry RN - 04/14/2010 4:42 AM CDT [facility] Progress Note (Nursing) Identify/Problem(s): Hypotensive and tachycardic [...] Esmer Richardson - 04/13/2010 10:37 PM CDT [facility] Progress Note (Nursing) Identify/Problem(s): Hypotension Tachycardic Desired [...] Silver RN - 04/13/2010 3:00 PM CDT [facility] Progress Note (Nursing) Identify/Problem(s): Pain. Desired [...] Tania Brantley - 04/13/2010 2:01 PM CDT [facility] Care Management Missed Visit Admission Date/Time: 04/11/2010 11:22 AM Attending MD: Maurice Barno's chart reviewed and discussed with interdisciplinary team. Reason for Attempted Visit: discuss dc planning. Reason Unsuccessful in Contacting Patient: patient sleeping x2. Attempted to phone to discuss dc planning. Had to leave vm, did leave my phone number requesting that she give me a call. So far, nocall back. Per PT notes of today, pt will likely be safe to return home. Primer Assembler will attempt to follow up with patient/family in am vs later today. Report completed by Tania Brantley RN, Pager Number [phone] --- End of Report --- Trudi Locke - 04/13/2010 1:35 PM CDT [facility] IP Physical Therapy Progress Note PT Visit Room/Bed: 72338/5898772 Patient Seen: bedside Diagnosis: Encounter Diagnoses Code [...] minutes Trudi Locke PT Phone number is [phone] Pager: [phone] --- End of Report --- Brittny Jasso - 04/13/2010 11:52 AM CDT [facility] NeuroSurgery Elective Spine Progress Note Date: 04/13/2010 [...] RN, ACNS-, CNRN Neuroscience Clinical Nurse Specialist [phone] --- End of Report --- Maurice Baron - 04/13/2010 11:52 AM CDT I have examined the patient and reviewed the plan of care and agree with the previous note. Maurice Baron MD 04/14/2010, 11:19 AM Martha Thomas - 04/13/2010 10:03 AM CDT [facility] PM&R Progress Note () Date of service: [...] Last change on 04/13/2010 Pump serial number: [id number] Infusion drug: Baclofen Concentration: 1,000 mcg/ml Infusion mode: simple continuous Dose per day: increased by 10% to 249.8 mcg/day [place] volume 4.4 ml Low reservoir alarm volume [...] Radha Long - 04/13/2010 6:27 AM CDT [facility] Progress Note (Nursing) Identify/Problem(s): Low blood [...] Radha Long - 04/13/2010 2:58 AM CDT [facility] MD Notified Note Name of MD notified: Madny Watson Time of MD notification: 0200 hours and 15 minutes Reason: Blood pressure is 88/44, hr 118 , needs more for shoulder pain Response: Give bolus of ns, check hgb, ordered tylenol, call back if bolus does not improve vs. Radha Long RN --- End of Report --- Esmer Richardson - 04/12/2010 10:48 PM CDT [facility] Progress Note (Nursing) Identify/Problem(s): pain Desired Outcome(s): [...] active low risk falls prevention interventions. Ephraim aCi - 04/12/2010 2:53 PM CDT [facility] Progress Note (Nursing) Identify/Problem(s): Pain control,finger numbness,shoulder [...] [place] - 04/12/2010 2:36 PM CDT HOSPITAL CAP BLOCKER NOTE - The patient received the Sacrament of the Sick (anointing) today. SHANNON Bolanos Archana Pace - 04/12/2010 2:35 PM CDT [facility] Office Nurse Practitioner Department Progress Note Reason for Visit Initial assessment for spiritual and emotional support needs for pt/family during this hospitalization. Pt is post-op day 1 from spine surgery. He is experiencing some pain this afternoon which RN is working on getting under control. Pt has had multiple surgeries for the same issue. Patient/Family Pt/ live in [place], [place]. stayed at the hospital but may go home this evening. Other visitors have been in/out to see pt. Resources/Support System Family, friends and lucia community provide a strong foundation for Jeff. Spiritual/Tenriism Jeff is appreciative of prayers, they have notified their crary investment professional and pt would like to receivethe sacrament of the sick. Interventions Offered I offered supportive listening, presence, prayers for healing/strength, contacted the [facility] investment professional for the sacrament of the sick, informed pt/family of ongoing gsa coordinator availability. Coping Jeff is focused on his pain at this time so assessment is limited. Pt/family appear to be coping appropriately at this time; they have extensive experience from previous surgeries. Plan Office Nurse Practitioner will continue following for ongoing spiritual and emotional support to pt/family. Report completed by: Archana Pace, [facility] Staff Online Editor --- End of Report --- Britni Barfield - 04/12/2010 12:19 PM CDT Problem: Falls Risk Goal: Low Risk (0-4): Fall Prevention I applied all active low risk falls prevention interventions. Abby Ellsworth - 04/12/2010 11:22 AM CDT [facility] Occupational Therapy Missed Visit Evaluation attempted today. Unable to start evaluation due to: pt just extubated and on flat bedrest. Will attempt evaluation again as soon as possible. Abby Ellsworth OTR/L (pager) OT Dept #: [phone] - OT Weekend Pager #: [phone] - [facility] Main #: [phone] --- End of Report --- Trudi Locke - 04/12/2010 11:15 AM CDT [facility] Physical Therapy Missed Visit Physical Therapy attempted to see patient today, 04/12/2010, for evaluation. Unable to see patient forthis reason: Pt just extubated and on flat bedrest at all times. Will attempt again tomorrow. Trudi Locke, PT [phone] --- End of Report --- Trudi Locke - 04/12/2010 9:36 AM CDT [facility] Physical Therapy Missed Visit Physical Therapy attempted to see patient today, 04/12/2010, for evaluation. Unable to see patient forthis reason: test. Will attempt again as soon as possible. Trudi Locke, PT [phone] --- End of Report --- Lucy Parker - 04/12/2010 8:30 AM CDT [facility] NeuroSurgery Progress Note Vitals Temp (24hrs), Min:96 [...] Carolyn Wells - 04/12/2010 7:32 AM CDT [facility] SICU Critical Care Progress Note Date: 04/12/2010 [...] Exam: Regular rate and rhythm without murmur Csm Consultant: NSR Heart Rate (24hrs), Pulse Av Min: [...] Blood drawing, Monitoring, IV access; Plan: Continue #2-[place] in Left, Radial; Day # 2; Indication: [...] Spenser Morocho - 04/12/2010 5:09 AM CDT [facility] Hospital Progress Note (Nursing) Identify/Problem(s): Respiratory status [...] Froilan Hardin - 04/11/2010 8:53 PM CDT [facility] Clinical Pharmacy Medication Reconciliation Note Medication [...] condition. PHARMACIST NAME: Froilan Hardin Phone/Pager #: [phone] --- End of Report --- Froilan Hardin - 04/11/2010 8:44 PM CDT [facility] Clinical Pharmacy Initial Kinetics Note Assessment: Jie Cullen, [id number], is a 64 yr year old male started on vancomycin 1g iv q 12h x 48h forpossible spinal infection pending intra-op culture results. Data: Last Height: 5' 10 (177.8 cm) Last Wt - Scale: 230 lb (104.327 kg) [place] Body Weight: 73 kg Dosing Weight: 85 [...] nsgy note). Froilan Hardin PharmD Pager Number: [phone] --- End of Report --- documented in this encounter Procedure Notes Maurice Baron X - 04/12/2010 9:21 AM CDT DATE OF SURGERY: 04/11/2010 STAFF SURGEON: Maurice Baron MD BELLMAN CAPTAIN: Lucy Parker PA ANESTHESIA: General. ESTIMATED BLOOD [...] discovered at T4-T5. [facility] with [facility] this tumor. Within a [...] notedto be very prominent, creating a big [place] where the wound was sitting, so with this we could flatten each border of the [place], which the patient achieved a much nicer [...] 04/12/2010 09:21:50 Transcribed: 04/12/2010 09:41:51 Doc #: [id number] cc:Maurice Baron MD, Referring Provider Yris Brownlee MD DO NOT SIGN UNLESS PRESENT FOR PROCEDURE I attest that I was present for and participated in the lee portions of this procedure(s) in compliance with the Health Care Financing Administration Teaching Physician Guidelines. Signed Date [facility] Staff Physician 1 Page 2 Patient Name: JIE CULLEN INPATIENT OPERATIVE REPORT CONFIDENTIAL MEDICAL RECORD [address] [id number] Page 1 Patient: JIE CULLEN Location: 3 N: [id number] Admit Date: 04/11/2010 Date of : 1945 Discharge Date: Age: 64Y INPATIENT OPERATIVE REPORT Director Of Preclinical ResearchLucy - 04/11/2010 8:08 PM CDT [facility] Brief Operative Progress Note Surgery Date: 04/11/2010 [...] extubate when able Strict bedrest until further ROLLER PNEUMATIC for pain control once extubate Will d/c [...] procedure was medically necessary for an assistant unit forester because Dr. Baron needed the operative exposure and assistance that I provided. This allowed him to safely and efficiently operate. It was also important that I help ligate blood vessels to maintain hemostasis and reduce the bleeding risk. The assistance that I provided reduced operative time which meant less general anesthetic for the patient. Lucy Parker PA-C --- End of Report --- [facility] ANESTHESIA, PROVIDER - 04/11/2010 12:00 AM CDT [facility] ANESTHESIA, PROVIDER - 04/11/2010 12:00 AM CDT [facility] ANESTHESIA, PROVIDER - 04/11/2010 12:00 AM CDT [facility], PROVIDER - 04/11/2010 12:00 AM CDTAssociated Order(s): EKG IP; EKG IP [facility] ANESTHESIA, PROVIDER - 04/11/2010 12:00 AM CDT [facility] ANESTHESIA, PROVIDER - 04/11/2010 12:00 AM CDT [facility] ANESTHESIA, PROVIDER - 04/11/2010 12:00 AM CDT documented in this encounter Consult Notes Jessica Garcia - 04/18/2010 1:07 PM CDTAssociated Order(s): WOUND/APRN CONSULT; WOUND/APRN CONSULT [facility] Wound/Ostomy Progress Note Reason for Consultation: buttocks [...] Health History: reviewed and noncontributory to the [facility] Social Health History: no smoking, no etoh [...] edema. I entered wound care orders in [facility]. Please contact the wound care service with any further questions or concerns. [phone]. Time spent with patient: 40 minutes with > 50% of time spent for education and coordination of care. 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 Patient was initially diagnosed with ependymoma in 1999 at [facility]. He underwent resection by Dr. Glasgow in [...] HPI Social History: . Lives with in [place], [place]. Denies tobacco, alcohol, or illicit drug [...] Will discuss further with neurooncology at the [facility]. Once patient recovers from the most recent surgery will schedule outpatient follow up [facility]. Patient and plan discussed with Dr. Loya. Report Completed by: Malathi Lopez MD Pager: [phone] Genny Loya - 04/14/2010 5:18 PM CDT I saw and examined the patient today. I agree with the findings and plan of care as documented in the note by Dr. Lopez. Genny Loya MD 04/14/2010 6:08 PM Cecile Browne - 04/13/2010 3:23 PM CDTAssociated Order(s): MEDICINE INPT CONSULT [facility] Medicine Consultation Note () Date of service: 04/13/2010 I was asked by Maurice Baron of [facility] to provide medical recommendations of this patient [...] IVFs. He denies significant medical history of DC, CVA, pulmonary, renal, GI, hepatic complications. He [...] 96% General Appearance: 64 yr male in [facility], sleeping on arrival lethargic during exam HEENT: [...] Report Completed by: Cecile Browne PA-C Pager: [phone] Martha Thomas - 04/12/2010 7:47 PM CDT [facility] PM&R Consult Note () Date of service: 04/12/2010 I was asked by Maurice Kirk to evaluate Jie Cullen for eval ITB . Chief Complaint: S/p surgery eval pump Encounter Diagnoses Code Name Primary? 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 518.81 Acute Respiratory Failure 64yo male with known thoracic ependymoma admitted to [facility] on 04/11/2010 He was initially diagnosed with [...] Last change on 03/09/2010 Pump serial number: [id number] Infusion drug: Baclofen Concentration: 1,000 mcg/ml Infusion mode: simple continuous Dose per day: baclofen 225.6 mcg/day [place] volume 4.6 ml Low reservoir alarm volume [...] Yudith Sanders - 04/11/2010 10:04 PM CDT [facility] SICU Critical Care Progress Note Date: 04/11/2010 Date of service: 04/11/2010 Diagnosis: Thoracic empendymoma Maurice Baron XNeurosurgery 64 yr, male S/P: Radical resection of thoracic spinal cord tumor Post-Op Day: #0, ICU Day: #1 HPI/ROS: This 64 yo M with hx of spinal cord tumor presented to [facility] today for non-emergent tumorresection. He was initially [...] 10 mg Rectal DAILY PRN ??? bupicacaine-EPINEPHrine 0.25-1:976412 % injection Intra-Op ??? citalopram (aka CELEXA) [...] CV Exam: Regular rhythm without murmur. Tachycardia. Csm Consultant: Sinus tachycardia. 12-Lead EKG: Sinus tachycardia. No [...] and begin oral diet. OG placed in [facility]. Renal Last 2 Encounter Wt Readings: [...] Blood drawing, Monitoring, IV access; Plan: Continue #2-[place] in Left, Radial; Day # 1; Indication: [...] in this encounter OR Notes &P - [facility], Provider - 03/29/2010 12:00 AM CDT documented [...] Maurice Baron MD LAB_1 Performing Organization Address City/[facility] Phon e Number [address] [address] [place], [place] [phone] GLUCOSE, WHOLE BLOOD POC (04/19/2010 5:02 PM CDT) P athologist Signature Glucose, Whole 133 70 - 180 [facility] Blood mg/dl Comment: Point of Care Testing RN Notified Specimen Anatomical Collection Method Collection Time Receive d Time (Source) Location / / Volume Laterality 04/19/2010 5:02 PM 0 5:04 CDT PM CDT Maurice Baron MD LAB_1 Performing Organization Address City/[facility] Phon e Number [address] [address] [place], [place] [phone] XR ABDOMEN DECUBE ONLY (04/19/2010 3:05 PM [...] Criselda Rodriguez PA-C LAB_1 Performing Organization Address [facility] Phon e Number [address] [address] [place], [place] [phone] PURPLE HOLD TUBE (04/19/2010 6:30 AM CDT) [facility] gist Method Time Signature Purple Hold [...] MD LAB_1 Performing Organization Address [facility] Phon e Number [address] [address] [place], [place] [phone] GLUCOSE, WHOLE BLOOD POC (04/18/2010 9:28 PM CDT) athologist Signature Glucose, Whole 126 70 - 180 [facility] Blood mg/dl Comment: Point of Care Testing RN Notified Specimen Anatomical Collection Method Collection Time Receive d Time (Source) Location / / Volume Laterality 04/18/2010 9:28 PM 0 9:36 CDT PM CDT Maurice Baron MD LAB_1 Performing Organization Address [facility] Phon e Number [address] [address] [place], [place] [phone] (ABNORMAL) INR/PROTIME (04/18/2010 9:00 AM CDT) athologist Signature Protime 19.9 (H) 12.0 - 14.5 [facility] sec INR 1.6 [facility] Specimen Anatomical Collection Method Collection Time Receive d Time (Source) Location / / Volume Laterality 04/18/2010 9:00 AM 0 9:33 CDT AM CDT Criselda Rodriguez PA-C LAB_1 Performing Organization Address City/[facility]/ZIP Code Phon e Number [address] [address] [place], [place] [phone] (ABNORMAL) HEMOGLOBIN, BLOOD (04/18/2010 6:50 AM CDT) athologist Signature Hemoglobin 9.2 (L) 13.5 - 17.5 [facility] g/dl Specimen Anatomical Collection Method Collection Time Receive d Time (Source) Location / / Volume Laterality 04/18/2010 6:50 AM 0 7:21 CDT AM CDT Criselda Rodriguez PA-C LAB_1 Performing Organization Address City/[facility]/ZIP Code Phon e Number [address] [address] [place], [place] [phone] GLUCOSE, WHOLE BLOOD POC (04/17/2010 5:29 PM CDT) athologist Signature Glucose, Whole 114 70 - 180 [facility] Blood mg/dl Comment: Point of Care Testing RN Notified Specimen Anatomical Collection Method Collection Time Receive d Time (Source) Location / / Volume Laterality 04/17/2010 5:29 PM 0 5:31 CDT PM CDT Maurice Baron MD LAB_1 Performing Organization Address City/[facility]/ZIP Code Phon e Number [address] [address] [place], [place] [phone] (ABNORMAL) GLUCOSE, WHOLE BLOOD POC (04/17/2010 12:07 PM CDT) P athologist Signature Glucose, Whole 200 (H) 70 - 180 [facility] Blood mg/dl Comment: Point of Care Testing RN Notified Specimen Anatomical Collection Method Collection Time Receive d Time (Source) Location / / Volume Laterality 04/17/2010 12:07 04/17/2010 PM CDT 12:12 PM CDT Maurice Baron MD LAB_1 Performing Organization Address [facility]/ZIP [facility] Phon e Number [address] [address] [place], [place] [phone] GLUCOSE, WHOLE BLOOD POC (04/17/2010 8:07 AM CDT) P athologist Signature Glucose, Whole 107 70 - 180 [facility] Blood mg/dl Comment: Point of Care Testing RN Notified Specimen Anatomical Collection Method Collection Time Receive d Time (Source) Location / / Volume Laterality 04/17/2010 8:07 AM 0 8:08 CDT AM CDT Maurice Baron MD LAB_1 Performing Organization Address [facility] Code Phon e Number [address] [address] [place], [place] [phone] (ABNORMAL) INR/PROTIME (04/17/2010 7:15 AM CDT) athologist Signature Protime 18.6 (H) 12.0 - 14.5 [facility] sec INR 1.5 [facility] Specimen Anatomical Collection Method Collection Time Receive d Time (Source) Location / / Volume Laterality 04/17/2010 7:15 AM 0 9:40 CDT AM CDT Anthony Gneao MD LAB_1 Performing Organization Address City/[facility]/ZIP Code Phon e Number [address] [address] [place], [place] [phone] (ABNORMAL) HEMOGRAM/PLTS (04/17/2010 7:15 AM CDT) P [...] Anthony Genao MD LAB_1 Performing Organization Address [facility] Phon e Number [address] [address] [place], [place] [phone] (ABNORMAL) BASIC METABOLIC PANEL (04/17/2010 7:15 AM [...] Anthony Genao MD LAB_1 Performing Organization Address [facility] Phon e Number [address] [address] [place], [place] [phone] GLUCOSE, WHOLE BLOOD POC (04/16/2010 9:00 PM CDT) athologist Signature Glucose, Whole 134 70 - 180 [facility] Blood mg/dl Comment: Point of Care Testing RN Notified Specimen Anatomical Collection Method Collection Time Receive d Time (Source) Location / / Volume Laterality 04/16/2010 9:00 PM 0 9:01 CDT PM CDT Maurice Baron MD LAB_1 Performing Organization Address [facility] Phon e Number [address] [address] [place], [place] [phone] OSMOLALITY, URINE (04/16/2010 4:40 PM CDT) athologist Signature Osmolality, 327 [facility] Urine Specimen Anatomical Collection Method Collection Time Receive d Time (Source) Location / / Volume Laterality Urine specimen 04/16/2010 4:40 PM 010 4:54 (specimen) CDT PM CDT Anthony Genao MD LAB_1 Performing Organization Address [facility]/ZIP [facility] Phon e Number [address] [address] [place], [place] [phone] OSMOLALITY (04/16/2010 1:20 PM CDT) athologist Signature Osmolality 285 280 - 300 [facility] mosm/kg Specimen Anatomical Collection Method Collection Time Receive d Time (Source) Location / / Volume Laterality 04/16/2010 1:20 PM 0 1:25 CDT PM CDT Anthony Genao MD LAB_1 Performing Organization Address [facility] Phon e Number [address] [address] [place], [place] [phone] (ABNORMAL) BASIC METABOLIC PANEL (04/16/2010 1:20 PM [...] MD LAB_1 Performing Organization Address [facility] Phon e Number [address] [address] [place], [place] [phone] GLUCOSE, WHOLE BLOOD POC (04/16/2010 11:22 AM CDT) P athologist Signature Glucose, Whole 148 70 - 180 [facility] Blood mg/dl Comment: Point of Care Testing RN Notified Specimen Anatomical Collection Method Collection Time Receive d Time (Source) Location / / Volume Laterality 04/16/2010 11:22 04/16/2010 AM CDT 11:28 AM CDT Maurice Baron MD LAB_1 Performing Organization Address [facility] Phon e Number [address] [address] [place], [place] [phone] BASIC METABOLIC PANEL (04/16/2010 10:56 AM CDT) [...] Maurice Baron MD LAB_1 Performing Organization Address City/[facility] Phon e Number [address] [address] [place], [place] [phone] ADD ON LAB ORDERS(SPECIMEN IN LAB) (04/16/2010 10:13 AM CDT) [facility] gist Method Time Signature Add On Test Additional [facility] Testing Ordered by Specimen Anatomical Collection Method Collection Time Receive d Time (Source) Location / / Volume Laterality 04/16/2010 10:13 04/16/2010 AM CDT 10:18 AM CDT Beth Luna MD LAB_1 Performing Organization Address City/[facility] Code Phon e Number [address] [address] [place], [place] [phone] GLUCOSE, WHOLE BLOOD POC (04/16/2010 7:58 AM CDT) athologist Signature Glucose, Whole 113 70 - 180 [facility] Blood mg/dl Comment: Point of Care Testing RN Notified Specimen Anatomical Collection Method Collection Time Receive d Time (Source) Location / / Volume Laterality 04/16/2010 7:58 AM 0 8:10 CDT AM CDT Maurice Baron MD LAB_1 Performing Organization Address City/[facility] Phon e Number [address] [address] [place], [place] [phone] (ABNORMAL) INR/PROTIME (04/16/2010 6:00 AM CDT) P athologist Signature Protime 16.0 (H) 12.0 - 14.5 [facility] sec INR 1.3 [facility] Specimen Anatomical Collection Method Collection Time Receive d Time (Source) Location / / Volume Laterality 04/16/2010 6:00 AM 0 6:22 CDT AM CDT Maurice Baron MD LAB_1 Performing Organization Address [facility]/ZIP [facility] Phon e Number [address] [address] [place], [place] [phone] (ABNORMAL) INR/PROTIME (04/15/2010 7:00 AM CDT) athologist Signature Protime 14.8 (H) 12.0 - 14.5 [facility] sec INR 1.1 [facility] Specimen Anatomical Collection Method Collection Time Receive d Time (Source) Location / / Volume Laterality 04/15/2010 7:00 AM 0 7:06 CDT AM CDT Cecile Browne PA-C LAB_1 Performing Organization Address City/[facility] Phon e Number [address] [address] [place], [place] [phone] (ABNORMAL) BASIC METABOLIC PANEL (04/15/2010 7:00 AM [...] Cecile Browne PA-C LAB_1 Performing Organization Address City/[facility]/ZIP Code Phon e Number [address] [address] [place], [place] [phone] URINE CULTURE (04/14/2010 3:05 PM CDT) [facility] Method Time Signature Specimen Urine [facility] Description Special Unspecified [facility] Requests Culture No Growth After [facility] 1 Day Report Status Final [facility] 04/15/2010 Specimen Anatomical Collection Method Collection Time Receive d Time (Source) Location / / Volume Laterality 04/14/2010 3:05 PM 0 3:58 CDT PM CDT Maurice Baron MD LAB_1 Performing Organization Address [facility]/ZIP [facility] Phon e Number [address] [address] [place], [place] [phone] US VENOUS DUPLEX LOWER EXTREMITY BILATERAL (04/14/2010 [...] of bilateral lower extremity veins performed by small package and bundle sorter clerk. Study technically difficult due to consi derable soft tissue swelling. FINDINGS: RIGHT: Nonocclusive thrombus in the dist al common femoral, proximal femoral and profunda femoris veins, better docu mented today. Remainder of the visualized femoral, popliteal and promotor group ticket sales ior tibial veins are negative for [...] of bilateral lower extremity veins performed by small package and bundle sorter clerk. Study technically difficult due to consi derable soft tissue swelling. FINDINGS: RIGHT: Nonocclusive thrombus in the dist al common femoral, proximal femoral and profunda femoris veins, better docu mented today. Remainder of the visualized femoral, popliteal and promotor group ticket sales ior tibial veins are negative for [...] Maurice Baron MD LAB_1 Performing Organization Address City/[facility] Phon e Number [address] [address] [place], [place] [phone] ADD ON LAB ORDERS(SPECIMEN IN LAB) (04/14/2010 8:51 AM CDT) Patholo gist Method Time Signature Add On Test Additional [facility] Testing Ordered by Specimen Anatomical Collection Method Collection Time Receive d Time (Source) Location / / Volume Laterality 04/14/2010 8:51 AM 0 8:56 CDT AM CDT Cecile Browne PA-C LAB_1 Performing Organization Address [facility] Phon e Number [address] [address] [place], [place] [phone] (ABNORMAL) INR/PROTIME (04/14/2010 6:00 AM CDT) P athologist Signature Protime 14.7 (H) 12.0 - 14.5 [facility] sec INR 1.1 [facility] Specimen Anatomical Collection Method Collection Time Receive d Time (Source) Location / / Volume Laterality 04/14/2010 6:00 AM 0 6:36 CDT AM CDT Cecile Browne PA-C LAB_1 Performing Organization Address City/[facility]/ZIP [facility] Phon e Number [address] [address] [place], [place] [phone] ECG 12-LEAD ROUTINE (04/13/2010 7:41 PM CDT) P athologist Signature Ventricular Rate 114 BPM MUSE Atrial Rate 114 BPM MUSE P-R Interval 176 ms MUSE QRS Duration 92 ms MUSE QT 326 ms MUSE QTc 449 ms MUSE P [place] 60 degrees MUSE R [place] -42 degrees MUSE T [place] 26 degrees MUSE URL Link MUSE Specimen [...] of breath, chest pain. TECHNIQUE: ??After nonenhanced animal biologist teresa ges were obtained, helical acquisition through [...] breath, chest p ain. TECHNIQUE: After nonenhanced animal biologist image s were obtained, helical acquisition through [...] CT URINE CULTURE (04/13/2010 5:25 PM CDT) [facility] Method Time Signature Specimen Urine REGIONS Description Special Unspecified REGIONS Requests Culture <10,000 col/ml REGIONS Mixed Zoila Report Status Final REGIONS 04/15/2010 Specimen Anatomical Collection Method Collection Time Receive d Time (Source) Location / / Volume Laterality 04/13/2010 5:25 PM 0 2:25 CDT PM CDT Maurice Baron MD LAB_1 Performing Organization Address City/State/ZIP Code Phon e Number [address] [address] [place], [place] [phone] ADD ON LAB ORDERS(SPECIMEN IN LAB) (04/13/2010 5:25 PM CDT) [facility] Method Time Signature Add On Test Additional REGIONS Testing Ordered by Specimen Anatomical Collection Method Collection Time Receive d Time (Source) Location / / Volume Laterality 04/13/2010 5:25 PM 0 5:33 CDT PM CDT Cecile Browne PA-C LAB_1 Performing Organization Address [facility]/ZIP [facility] Phon e Number [address] [address] [place], [place] [phone] (ABNORMAL) UA WITH MICROSCOPIC (04/13/2010 5:25 PM CDT) [facility] Method Time Signature Urine Color Light Yellow REGIONS Urine Clarity Hazy REGIONS Specific 1.011 1.005 - REGIONS [place],Ur 1.03 pH, Urine 5.5 4.5 - 8.0 [...] Cecile Browne PA-C LAB_1 Performing Organization Address City/[facility]/ZIP [facility] Phon e Number [address] [address] [place], [place] [phone] FREE T4 (04/13/2010 3:55 PM CDT) athologist Signature T4, Free 1.3 0.8 - 2.2 REGIONS ng/dl Specimen Anatomical Collection Method Collection Time Receive d Time (Source) Location / / Volume Laterality 04/13/2010 3:55 PM 0 4:13 CDT PM CDT Cecile Browne PA-C LAB_1 Performing Organization Address City/[facility]/ZIP Code Phon e Number [address] [address] [place], [place] [phone] (ABNORMAL) TSH, SENSITIVE (WITH REFLEX) (04/13/2010 3:55 PM CDT) Analysis Performed At Patho logist Time Signature TSH, with 6.723 (H) 0.465 - REGIONS Reflex 4.68 uIU/ml Specimen Anatomical Collection Method Collection Time Receive d Time (Source) Location / / Volume Laterality 04/13/2010 3:55 PM 0 4:13 CDT PM CDT Cecile Browne PA-C LAB_1 Performing Organization Address [facility]/ZIP Code Phon e Number [address] [address] [place], [place] [phone] ADD ON LAB ORDERS(SPECIMEN IN LAB) (04/13/2010 3:55 PM CDT) Patholo gist Method Time Signature Add On Test Additional REGIONS Testing Ordered by Specimen Anatomical Collection Method Collection Time Receive d Time (Source) Location / / Volume Laterality 04/13/2010 3:55 PM 0 4:13 CDT PM CDT Cecile Browne PA-C LAB_1 Performing Organization Address City/[facility]/ZIP Code Phon e Number [address] [address] [place], [place] [phone] (ABNORMAL) HEMOGLOBIN, BLOOD (04/13/2010 3:55 PM CDT) P athologist Signature Hemoglobin 9.3 (L) 13.5 - 17.5 REGIONS g/dl Specimen Anatomical Collection Method Collection Time Receive d Time (Source) Location / / Volume Laterality 04/13/2010 3:55 PM 0 4:13 CDT PM CDT Cecile Browne PA-C LAB_1 Performing Organization Address City/[facility]/ZIP Code Phon e Number [address] [address] [place], [place] [phone] CORTISOL (04/13/2010 3:55 PM CDT) P athologist Signature Cortisol 15 mcg/dl REGIONS Specimen Anatomical Collection Method Collection Time Receive d Time (Source) Location / / Volume Laterality 04/13/2010 3:55 PM 0 4:13 CDT PM CDT Cecile Browne PA-C LAB_1 Performing Organization Address City/State/ZIP Code Phon e Number [address] [address] [place], [place] [phone] XR PORTABLE CHEST 1 VIEW (04/13/2010 8:44 [...] MD LAB_1 Performing Organization Address [facility] Phon e Number [address] [address] [place], [place] [phone] PHOSPHORUS (04/13/2010 5:45 AM CDT) P athologist Signature Phosphorus 3.2 2.5 - 4.5 REGIONS mg/dl Specimen Anatomical Collection Method Collection Time Receive d Time (Source) Location / / Volume Laterality 04/13/2010 5:45 AM 0 5:57 CDT AM CDT Maurice Baron MD LAB_1 Performing Organization Address [facility] Phon e Number [address] [address] [place], [place] [phone] MAGNESIUM (04/13/2010 5:45 AM CDT) P athologist Signature Magnesium 1.8 1.6 - 2.3 REGIONS mg/dl Specimen Anatomical Collection Method Collection Time Receive d Time (Source) Location / / Volume Laterality 04/13/2010 5:45 AM 0 5:57 CDT AM CDT Maurice Baron MD LAB_1 Performing Organization Address City/[facility]/ZIP Code Phon e Number [address] [address] [place], [place] [phone] (ABNORMAL) HEMOGRAM/PLTS (04/13/2010 5:45 AM CDT) athologist [...] Organization Address City/State/ZIP Code Phon e Number [address] [address] [place], [place] [phone] (ABNORMAL) HEMOGLOBIN, BLOOD (04/13/2010 2:30 AM CDT) athologist [facility] Hemoglobin 9.6 (L) 13.5 - 17.5 REGIONS g/dl Comment: Result Checked Specimen Anatomical Collection Method Collection Time Receive d Time (Source) Location / / Volume Laterality 04/13/2010 2:30 AM 0 2:36 CDT AM CDT Maurice Baron MD LAB_1 Performing Organization Address City/[facility]/ZIP [facility] Phon e Number [address] [address] [place], [place] [phone] GLUCOSE, WHOLE BLOOD POC (04/12/2010 3:59 PM CDT) athologist [facility] Glucose, Whole 130 70 - 180 REGIONS Blood mg/dl Comment: Point of Care Testing RN Notified Specimen Anatomical Collection Method Collection Time Receive d Time (Source) Location / / Volume Laterality 04/12/2010 3:59 PM 0 CDT 11:36 PM CDT Maurice Baron MD LAB_1 Performing Organization Address [facility]/ZIP [facility] Phon e Number [address] [address] [place], [place] [phone] GLUCOSE, WHOLE BLOOD POC (04/12/2010 12:26 PM CDT) P athologist Signature Glucose, Whole 145 70 - 180 REGIONS Blood mg/dl Comment: Point of Care Testing RN Notified Specimen Anatomical Collection Method Collection Time Receive d Time (Source) Location / / Volume Laterality 04/12/2010 12:26 04/12/2010 PM CDT 11:36 PM CDT Maurice Baron MD LAB_1 Performing Organization Address [facility] Phon e Number [address] [address] [place], [place] [phone] US VENOUS DUPLEX LOWER EXTREMITY BILATERAL (04/12/2010 [...] Organization Address City/State/ZIP Code Phon e Number [address] [address] [place], [place] [phone] MR THORACIC SPINE WITH/WITHOUT CONTRAST (04/12/2010 10:35 AM CDT) Anatomical Region Laterality Modality Spine, T-Spine, L-Spine, C-Spine, Skeletal Magnetic Resonance Specimen (Source) Anatomical Collection Method Collection Time Re ceived Time Location / / Volume Laterality 04/12/2010 10:35 AM CDT Narrative 04/12/2010 11:01 AM CDT MRI THORACIC SPINE [facility] 04/12/2010 INDICATIONS: Status post tumor resection [...] Marcel Schaefer - 04/12/2010 MRI THORACIC SPINE [facility] 04/12/2010 INDICATIONS: Status post tumor resection [...] MD LAB_1 Performing Organization Address [facility] Phon e Number [address] [address] [place], [place] [phone] Troponin I q6h X3 (04/12/2010 4:25 AM CDT) athologist Signature Troponin I <0.012 0.000 - REGIONS 0.03 ng/ml Comment: PLEASE NOTE CHANGE IN REFERENCE RANGE Specimen Anatomical Collection Method Collection Time Receive d Time (Source) Location / / Volume Laterality 04/12/2010 4:25 AM 0 4:45 CDT AM CDT Maurice Baron MD LAB_1 Performing Organization Address City/[facility] Phon e Number [address] [address] [place], [place] [phone] PHOSPHORUS (04/12/2010 4:24 AM CDT) athologist Signature Phosphorus 2.9 2.5 - 4.5 REGIONS mg/dl Specimen Anatomical Collection Method Collection Time Receive d Time (Source) Location / / Volume Laterality 04/12/2010 4:24 AM 0 4:46 CDT AM CDT Maurice Baron MD LAB_1 Performing Organization Address [facility] Phon e Number [address] [address] [place], [place] [phone] MAGNESIUM (04/12/2010 4:24 AM CDT) athologist Signature Magnesium 2.1 1.6 - 2.3 REGIONS mg/dl Specimen Anatomical Collection Method Collection Time Receive d Time (Source) Location / / Volume Laterality 04/12/2010 4:24 AM 0 4:46 CDT AM CDT Maurice Baron MD LAB_1 Performing Organization Address [facility] Phon e Number [address] [address] [place], [place] [phone] ADD ON LAB ORDERS(SPECIMEN IN LAB) (04/12/2010 4:24 AM CDT) [facility] gist Method Time Signature Add On Test Additional REGIONS Testing Ordered by Specimen Anatomical Collection Method Collection Time Receive d Time (Source) Location / / Volume Laterality 04/12/2010 4:24 AM 0 4:46 CDT AM CDT Maurice Baron MD LAB_1 Performing Organization Address [facility] Phon e Number [address] [address] [place], [place] [phone] (ABNORMAL) Basic Metabolic Panel (04/12/2010 4:24 AM [...] Lucy Colmenares PA-C LAB_1 Performing Organization Address City/[facility]/ZIP Code Phon e Number [address] [address] [place], [place] [phone] (ABNORMAL) Hemogram with Plts (04/12/2010 4:24 AM [...] Lucy Colmenares PA-C LAB_1 Performing Organization Address [facility]/ZIP [facility] Phon e Number [address] [address] [place], [place] [phone] (ABNORMAL) GLUCOSE, WHOLE BLOOD POC (04/12/2010 4:02 AM CDT) athologist Signature Glucose, Whole 229 (H) 70 - 180 REGIONS Blood mg/dl Comment: Point of Care Testing RN Notified IV Insulin Specimen Anatomical Collection Method Collection Time Receive d Time (Source) Location / / Volume Laterality 04/12/2010 4:02 AM 0 4:38 CDT AM CDT Maurice Baron MD LAB_1 Performing Organization Address [facility]/ZIP Code Phon e Number [address] [address] [place], [place] [phone] (ABNORMAL) GLUCOSE, WHOLE BLOOD POC (04/12/2010 12:02 AM CDT) P athologist Signature Glucose, Whole 236 (H) 70 - 180 REGIONS Blood mg/dl Comment: Point of Care Testing RN Notified IV Insulin Specimen Anatomical Collection Method Collection Time Receive d Time (Source) Location / / Volume Laterality 04/12/2010 12:02 04/12/2010 AM CDT 12:45 AM CDT Maurice Baron MD LAB_1 Performing Organization Address City/[facility]/ZIP Code Phon e Number [address] [address] [place], [place] [phone] Calcium, Ionized (04/11/2010 10:31 PM CDT) athologist Signature Calcium, 1.17 mmol/L REGIONS Ionized WB Comment: Usual range 1.0-1.3 mmol/L at p H 7.4 pH, Whole Blood 7.401 7.350 - 7.45 REGIONS Specimen Anatomical Collection Method Collection Time Receive d Time (Source) Location / / Volume Laterality Whole Blood 04/11/2010 10:31 04/11/2010 PM CDT 10:32 PM CDT Maurice Baron MD LAB_1 Performing Organization Address City/[facility]/ZIP Code Phon e Number [address] [address] [place], [place] [phone] Troponin I q6h X3 (04/11/2010 10:30 PM CDT) athologist Signature Troponin I <0.012 0.000 - REGIONS 0.03 ng/ml Comment: PLEASE NOTE CHANGE IN REFERENCE RANGE Specimen Anatomical Collection Method Collection Time Receive d Time (Source) Location / / Volume Laterality 04/11/2010 10:30 04/11/2010 PM CDT 10:31 PM CDT Maurice Baron MD LAB_1 Performing Organization Address City/[facility]/ZIP Code Phon e Number [address] [address] [place], [place] [phone] Urine Culture (04/11/2010 10:30 PM CDT) [facility] gist Method Time Signature Specimen Urine REGIONS Description Cath/Bladder Special Unspecified REGIONS Requests Culture No Growth After REGIONS 2 Days Report Status Final REGIONS 04/13/2010 Specimen Anatomical Collection Method Collection Time Receive d Time (Source) Location / / Volume Laterality Urine specimen 04/11/2010 10:30 0 (specimen) PM CDT 11:18 PM CDT Maurice Baron MD LAB_1 Performing Organization Address [facility] Phon e Number [address] [address] [place], [place] [phone] INR/Protime (PT/INR) (04/11/2010 10:30 PM CDT) athologist Signature Protime 13.5 12.0 - 14.5 REGIONS sec INR 1.0 REGIONS Specimen Anatomical Collection Method Collection Time Receive d Time (Source) Location / / Volume Laterality 04/11/2010 10:30 04/11/2010 PM CDT 10:31 PM CDT Maurice Baron MD LAB_1 Performing Organization Address City/[facility]/ZIP Code Phon e Number [address] [address] [place], [place] [phone] Magnesium (04/11/2010 10:30 PM CDT) P athologist Signature Magnesium 1.6 1.6 - 2.3 REGIONS mg/dl Specimen Anatomical Collection Method Collection Time Receive d Time (Source) Location / / Volume Laterality 04/11/2010 10:30 04/11/2010 PM CDT 10:31 PM CDT Maurice Baron MD LAB_1 Performing Organization Address City/[facility]/ZIP [facility] Phon e Number [address] [address] [place], [place] [phone] Phosphorus (04/11/2010 10:30 PM CDT) P athologist Signature Phosphorus 4.2 2.5 - 4.5 REGIONS mg/dl Specimen Anatomical Collection Method Collection Time Receive d Time (Source) Location / / Volume Laterality 04/11/2010 10:30 04/11/2010 PM CDT 10:31 PM CDT Maurice Baron MD LAB_1 Performing Organization Address [facility] Phon e Number [address] [address] [place], [place] [phone] (ABNORMAL) Basic Metabolic Panel (K, Na, CO2, [...] Maurice Baron MD LAB_1 Performing Organization Address City/[facility] Phon e Number [address] [address] [place], [place] [phone] (ABNORMAL) Hemogram with Platelets (04/11/2010 10:30 PM [...] MD LAB_1 Performing Organization Address [facility] Phon e Number [address] [address] [place], [place] [phone] (ABNORMAL) Blood Gas, Arterial (ABG) (04/11/2010 10:30 PM CDT) [facility] Method Time Signature pH, Whole 7.401 [...] MD LAB_1 Performing Organization Address [facility]/ZIP [facility] Phon e Number [address] [address] [place], [place] [phone] XR PORTABLE CHEST 1 VIEW (04/11/2010 9:03 [...] ms MUSE QTc 487 ms MUSE P [place] 49 degrees MUSE R Brighton -49 degrees MUSE T [place] 15 degrees MUSE URL Link MUSE Specimen [...] Maurice Baron MD EKG Performing Organization Address [facility] Phon e Number MUSE RHP MUSE MRSA ADMIT SCREEN (04/11/2010 9:00 PM CDT) Component Value Ref Test Analysis Performed At [facility] gist Range Method Time Signature Specimen [...] MD LAB_1 Performing Organization Address [facility] Phon e Number [address] [address] [place], [place] [phone] (ABNORMAL) GLUCOSE, WHOLE BLOOD POC (04/11/2010 8:28 PM CDT) P athologist Signature Glucose, Whole 183 (H) 70 - 180 REGIONS Blood mg/dl Comment: Point of Care Testing RN Notified Specimen Anatomical Collection Method Collection Time Receive d Time (Source) Location / / Volume Laterality 04/11/2010 8:28 PM 0 8:38 CDT PM CDT Maurice Baron MD LAB_1 Performing Organization Address [facility] Phon e Number [address] [address] [place], [place] [phone] ANAEROBIC CULTURE (04/11/2010 4:30 PM CDT) [facility] gist Method Time Signature Specimen Tissue DEEPER REGIONS Description COLLECTION Posterior Neck Special Received in REGIONS Requests Anaport Vial Aerobic Cult [id number] REGIONS Number Culture No Anaerobes REGIONS Isolated Report Status Final [facility] 04/17/2010 Specimen Anatomical Collection Method Collection Time Receive d Time (Source) Location / / Volume Laterality 04/11/2010 4:30 PM 0 6:18 CDT PM CDT Maurice Baron MD LAB_1 Performing Organization Address [facility] Phon e Number [address] [address] [place], [place] [phone] AEROBIC CULTURE (04/11/2010 4:30 PM CDT) [facility] [employer] Method Time Signature Specimen Tissue DEEPER REGIONS [...] MD LAB_1 Performing Organization Address [facility] Code Phon e Number [address] [address] [place], [place] [phone] ANAEROBIC CULTURE (04/11/2010 4:00 PM CDT) [facility] [employer] Method Time Signature Specimen Tissue REGIONS Description Posterior Neck SUB PUSTUAL COLLECTION Special Received in REGIONS Requests Anaport Vial Aerobic Cult [id number] REGIONS Number Culture No Anaerobes REGIONS Isolated Report Status Final REGIONS 04/17/2010 Specimen Anatomical Collection Method Collection Time Receive d Time (Source) Location / / Volume Laterality 04/11/2010 4:00 PM 0 6:32 CDT PM CDT Maurice Baron MD LAB_1 Performing Organization Address [facility] Phon e Number [address] [address] [place], [place] [phone] AEROBIC CULTURE (04/11/2010 4:00 PM CDT) [facility] [employer] Method Time Signature Specimen Tissue SUB REGIONS [...] Maurice Baron MD LAB_1 Performing Organization Address City/[facility]/ZIP [facility] Phon e Number [address] [address] [place], [place] [phone] ANAEROBIC CULTURE (04/11/2010 4:00 PM CDT) Patholo gist Method Time Signature Specimen Tissue SUB REGIONS Description PUSTUAL WALL Posterior Neck Special Received in REGIONS Requests Anaport Vial Aerobic Cult [id number] REGIONS Number Culture No Anaerobes REGIONS Isolated Report Status Final REGIONS 04/17/2010 Specimen Anatomical Collection Method Collection Time Receive d Time (Source) Location / / Volume Laterality 04/11/2010 4:00 PM 0 6:25 CDT PM CDT Maurice Baron MD LAB_1 Performing Organization Address [facility] Phon e Number [address] [address] [place], [place] [phone] AEROBIC CULTURE (04/11/2010 4:00 PM CDT) Patholo [...] Maurice Baron MD LAB_1 Performing Organization Address City/[facility]/ZIP Code Phon e Number [address] [address] [place], [place] [phone] ANAEROBIC CULTURE (04/11/2010 4:00 PM CDT) Patholo gist Method Time Signature Specimen Aspirate REGIONS Description Posterior Neck SUBPUSTUAL COLLECTION Special Received in REGIONS Requests Anaport Vial Aerobic Cult [id number] REGIONS Number Culture No Anaerobes REGIONS Isolated Report Status Final REGIONS 04/17/2010 Specimen Anatomical Collection Method Collection Time Receive d Time (Source) Location / / Volume Laterality 04/11/2010 4:00 PM 0 4:07 CDT PM CDT Maurice Baron MD LAB_1 Performing Organization Address [facility] Phon e Number [address] [address] [place], [place] [phone] AEROBIC CULTURE (04/11/2010 4:00 PM CDT) [facility] gist Method Time Signature Specimen Aspirate REGIONS Description Posterior Neck SUBPUSTUAL COLLECTION Special Received in REGIONS Requests Anaport Vial Gram Smear Rare PMNs Seen REGIONS Gram Smear No Organisms REGIONS Seen Gram Smear Results Called REGIONS to Dr Baron via Speaker Phone [phone] at 16:30 on Gram Smear 04/11 by AG REGIONS Culture No Growth REGIONS After 3 Days Report Status Final REGIONS 04/14/2010 Specimen Anatomical Collection Method Collection Time Receive d Time (Source) Location / / Volume Laterality 04/11/2010 4:00 PM 0 4:07 CDT PM CDT Maurice Baron MD LAB_1 Performing Organization Address [facility] Phon e Number [address] [address] [place], [place] [phone] ABO Rh & Antibody Screen (Type & Screen) (04/11/2010 11:57 AM CDT) [facility] Method Time Signature Crossmatch 04/14/2010 REGIONS Expires ABO/RH(D) A NEGATIVE REGIONS Antibody NEGATIVE REGIONS Screen Specimen Anatomical Collection Method Collection Time Receive d Time (Source) Location / / Volume Laterality 04/11/2010 11:57 04/11/2010 AM CDT 12:06 PM CDT Maurice Baron MD LAB_1 Performing Organization Address [facility] Phon e Number [address] [address] [place], [place] [phone] aPTT (Activated Partial Thromboplastin Time) (04/11/2010 11:57 AM CDT) athologist Signature PTT 27.0 24.0 - 37.0 REGIONS sec Specimen Anatomical Collection Method Collection Time Receive d Time (Source) Location / / Volume Laterality 04/11/2010 11:57 04/11/2010 AM CDT 12:05 PM CDT Maurice Baron MD LAB_1 Performing Organization Address City/[facility]/ZIP [facility] Phon e Number [address] [address] [place], [place] [phone] INR/Protime (PT/INR) (04/11/2010 11:57 AM CDT) P athologist Signature Protime 12.5 12.0 - 14.5 REGIONS sec INR 0.9 REGIONS Specimen Anatomical Collection Method Collection Time Receive d Time (Source) Location / / Volume Laterality 04/11/2010 11:57 04/11/2010 AM CDT 12:05 PM CDT Maurice Baron MD LAB_1 Performing Organization Address [facility] Phon e Number [address] [address] [place], [place] [phone] SURGICAL PATH (04/11/2010 7:00 AM CDT) Patholo gist Method Time Signature 9911 (NOTE) REGIONS Surgical Final Report Patient Name: JIE CULLEN Taken: 04/11/2010 Received: 04/11/2010 Reported: 04/20/2010 Physician(s): MAURICE BARON ([id number]) ? 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 on 01/23/01 omar duran [id number]). ??The histologic findings are similar to the [...] Signed Out By ? Chelsea Estrada MD ([id number]) Procedures/Addenda Clinical History Thoracic tumor Gross Description [...] three slides. ?? 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 518.81 Acute Respiratory Failure No past medical history on file. 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 Bathroom Location and Set-up: walk-in [...] minutes [facility] Mat[facility]L (pager) OT Dept #: [phone] - OT Weekend Pager #: [phone] - [facility] [place] Main #: [phone] --- End of Report --- Initial Assessments - Spenser Morocho - 04/11/2010 11:47 PM CDT [facility] Med-Surg / ICU / Rehab / [...] will continue to assess andmake appropriate referrals/interventions PSYCHOSOCIAL/SPIRITUAL/ISLAM/CULTURAL/ABUSE/CHEMICAL Suicide Health Inventory Do you currently have [...] 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, grief/loss, etc.): Yes - Online Editor Consult Recommended Cultural practices that affect patient [...] spasms documented in this encounter Care Teams Executive Wellness Programs Director Relationship Specialty Start Date End Date Unassigned, Provider PCP - General 11/28/01 05/21/[address] [place] [phone] documented as of this encounter
--- OUTSIDE RECORDS SUMMARY | 2022-07-04 15:20 | XMS_ITS | Encounter Summary ---
:1945 Author Organization [facility] Address [address], [place] [address] Care Team Providers Name Role Phone Unassigned, Provider Primary Care Provider Unavailable Encounter Details Date Type Department Care Team Description 03/29/2010 Orders Only External to Alfonso Carlson MD [address] [place] [phone] [phone] (Wo rk) Social History Tobacco [...] filedocumented in this encounter Care Teams Fire Watcher Relationship Specialty Start Date End Date Unassigned, Provider PCP - General 11/28/01 05/21/[address] [place] [phone] documented as of this encounter
--- OUTSIDE RECORDS SUMMARY | 2022-07-04 15:20 | XMS_ITS | Encounter Summary ---
:1945 Author Organization [employer] Address [address] [place] [address] Care Team Providers Name Role Phone Unassigned, Provider Primary Care Provider Unavailable Encounter Details Date Type Department Care Team Description 04/05/2010 [facility] [address] [place] [address] Social History Tobacco Use Types Packs/Day Years [...] on filedocumented in this encounter Care Teams Store Team Member Relationship Specialty Start Date End Date Unassigned, Provider PCP - General 11/28/01 05/21/[address] [place] [phone] documented as of this encounter
--- OUTSIDE RECORDS SUMMARY | 2022-07-04 15:21 | XMS_ITS | Encounter Summary ---
:1945 Author Organization [facility] Address [address] [place] [address] Care Team Providers Name Role Phone Unassigned, Provider Primary Care Provider Unavailable Encounter Details Date Type Department Care Team Description 09/02/2009 Orders Only External to Unknown, [facility] [address] [place], [place] [phone] (Wo rk) Social History Tobacco Use Types [...] on filedocumented in this encounter Care Teams County Health Officer Relationship Specialty Start Date End Date Unassigned, Provider PCP - General 11/28/01 05/21/[address] [place] [phone] documented as of this encounter
--- OUTSIDE RECORDS SUMMARY | 2022-07-04 15:21 | XMS_ITS | Encounter Summary ---
:1945 Author Organization [facility] Address [address] [place] [address] Support Name Relationship Address Phone WADE DEGROOT Unavailable [address] [place] [address] [address] [place] [place] [address] Insurance Providers: All historical and current Section [...] MEDICARE MEDICARE PART Jul 12, PART B [id number] [address],F P ATIENT (WNR) (M) B 2003 [id number] [phone] RED MEDICARE MEDICARE PART Oct 11, PART A [id number] 800 [address],F P ATIENT (WNR) (M) A 2001 [id number] [phone] RED Selected Encounter This section includes the information on record at [place] for the Encounter. Date/Time Encounter Type Encounter Description Reason Provider Source Jun 27, 2022 02:00 Outpatient Encounter [facility] Encounter Template Text not used by [place] Plan of Treatment: Future Appointments (+ 6 [...] 20 appointments. The data comes from all [place] treatment facilities. Appointment Date/Time Appointment Type Appointment Facili ty Name Jul 11, 2022 11:00 AM AMBULATORY - REHAB [facility]INE [facility] Jul 23, 2022 10:00 AM AMBULATORY - REHAB MEDICINE [facility] Aug 01, 2022 02:00 PM AMBULATORY - [facility] Active, Pending, and [...] the Encounter. The data comes from all [place] treatment facilities. Test Date/Time Test Type Test Details Facility Name Jun 27, 2022 03:42 PM Consult Order OT OCCUPATIONAL THERAPY OU TPT [facility] SCID Cons Marble Polisher Hand's Choice Jun 27, 2022 03:42 PM Consult Order PT PHYSICAL THERAPY OUTPT [facility] SCI/D REHAB Cons [place] Polisher Hand's Choice Encounter Notes: All associated encounter notes This section contains the clinical notes associated to the Encounter. Date/Time Encounter Note(s) Provider Source Jun 26, 2022 08:29 AM [facility]: NO SHOW/CANCELLATION CLINIC NOTE STANDARD TITLE: NO SHOW NOTE DATE OF NOTE: JUN 26, 2022@08:29 ENTRY DATE: JUN 26, 2022@08:29:43 AUTHOR: NORMAN PASTRANA EXP COSIGNER: URGENCY: STATUS: COMPLETED NO SHOW/CANCELLATION CLINIC NOTE Has ADDEND A [place] not seen for scheduled appointment due t o: cancelled Appointment Rescheduled: Yes 's family left voice mail to [facility] appt Please review patient chart and medications for renewal needs (if appropriate). /el/ NORMAN PASTRANA Posterbee/STEAM GIGGER Signed: 06/26/2022 08:30 Receipt Acknowledged By: * AWAITING SIGNATURE * ISAIAH BOWMAN 06/26/2022 ADDENDUM STATUS: COMPLETED veterans family changed their minds and will now keep the appt. /el/ NORMAN PASTRANA Posterbee/STEAM GIGGER Signed: 06/26/2022 08:34
--- OUTSIDE RECORDS SUMMARY | 2022-07-04 15:21 | XMS_ITS | Encounter Summary ---
:1945 Author Organization [facility] Address [address] [place] [address] Support Name Relationship Address Phone WADE DEGROOT Unavailable [address] [place] [address] WADE DEGROOT Unavailable [address] [place] [address] Insurance Providers: All historical and current Section [...] MEDICARE MEDICARE PART Jul 12, PART B [id number] 800 VOEGELE,F P ATIENT (WNR) (M) B 2003 [id number] [phone] RED MEDICARE MEDICARE PART Oct 11, PART A [id number] 800 [address]OE[address],F P ATIENT (WNR) (M) A 2001 [id number] [phone] RED Selected Encounter This section includes the information on [place] at [place] for the Encounter. Date/Time Encounter Type Encounter Description Reason Provider Source Jun 25, 2022 03:12 Outpatient Encounter ADMIN PAT ACTIVTIES PM (MASNONCT) IHE Encounter Template Text not used by [place] Plan of Treatment: Future Appointments (+ 6 months) and Future Tests (+/- 45 days) The Plan of Treatment section includes future care activities for the patient from all [place] treatmentfacilities. This section includes future appointments and future orders which are active, pending orscheduled.Future Appointments This section includes appointments that were scheduled to occur 6 months from the date of the Encounter, up to a maximum of 20 appointments. The data comes from all [place] treatment facilities. Appointment Date/Time Appointment Type Appointment Facili ty Name Jun 27, 2022 02:00 PM AMBULATORY - REHAB MEDICINE [facility] Jul 11, 2022 11:00 AM AMBULATORY - REHAB MEDICINE [facility] Jul 23, 2022 10:00 AM AMBULATORY - REHAB [facility] Aug 01, 2022 02:00 PM AMBULATORY - REHAB MEDICINE [facility] Active, Pending, and Scheduled Orders This [...] The data comes from all [place] treatment [facility]. Test Date/Time Test Type Test Details Facility Name Jun 27, 2022 03:42 PM Consult Order OT OCCUPATIONAL THERAPY OU TPT [facility] SCID Cons Car Record Clerk's Choice Jun 27, 2022 03:42 PM Consult Order PT PHYSICAL THERAPY OUTPT [facility] SCI/D REHAB Cons Car Record Clerk's Choice Lab Results: +/- 30 days of [...] Reference Range Comment May 28, 2022 03:31 PM SADAF NORMAN HIV AG/AB SCREEN Specimen Type: SERUM No comment enter ed. Ordering Provid er: SHANTAL HANSON Report Released Date/Time: May 28, 2022 03:06 PM Reporting Lab: [facility] [address] [facility] [address] Performing Lab: [facility] [address] [facility] [address] HIV AG/AB SCREEN NEGATIVE NEGATIVE May 28, 2022 03:31 SADAF NORMAN TSH W/REFLEX TO FREE Specime n Type: PLASMA PM T4 No comment enter ed. Ordering Provid er: SHANTAL HANSON Report Released Date/Time: May 28, 2022 03:06 PM Reporting Lab: [facility] [address] [facility] [address] Performing Lab: [facility] [address] [facility] [address] TSH 2.42 0.35-4.94 May 28, 2022 03:31 SADAF NORMAN COMPREHENSIVE METABOLIC Spec imen Type: PLASMA PM PANEL+MG No comment enter ed. Ordering Provid er: SHANTAL HANSON Report Released Date/Time: May 28, 2022 03:06 PM Reporting Lab: [facility] [address] [facility] [address] Performing Lab: [facility] [address] CREATININE 0.7 0.7-1.2 UREA NITROGEN 13 8-26 [...] 28, 2022 03:06 PM Reporting Lab: [facility] [address] Performing Lab: [facility] [address] WBC 6.27 4.0-11.0 RBC 4.43 L 4.6-6.2 HGB 12.9 L 13.5-17.9 HCT 40.2 L 41-54 MCV 90.7 80-100 MCH 29.1 27-33 MCHC 32.1 32.0-37.5 PLT 183 150-400 MPV 10.6 H 7.4-10.4 RDW 13.5 11.5-14.5 May 28, 2022 03:31 PM SADAF TREVINO CBTATI HEMOGLOBIN A1C Specimen Type: BLOOD No comment enter ed. Ordering Provid er: SHANTAL HANSON Report Released Date/Time: May 28, 2022 03:06 PM Reporting Lab: [facility] [address] Performing Lab: [facility] [address] [facility] [address] HEMOGLOBIN A1C 5.8 4.0-6.0 May 28, 2022 03:31 SADAF NORMAN LIPID PANEL,NON-FASTING Spec imen Type: PLASMA PM No comment enter ed. Ordering Provid er: SHANTAL HANSON Report Released Date/Time: May 28, 2022 03:06 PM Reporting Lab: [facility] [address] [facility] [address] Performing Lab: [facility] [address] [facility] [address] CHOLESTEROL 116 <199 .HDL 39 L >40 LDL CALCULATION 64 <99 VLDL CALCULATION 13 <29 NON HDL CHOLESTEROL 77 <129 TRIG(NON FASTING) 63 <149 May 28, 2022 03:31 PM SADAF NORMAN ANTI-HEP C(EIA) Specimen Type: SERUM No comment enter ed. Ordering Provid er: SHANTAL HANSON Report Released Date/Time: May 28, 2022 03:06 PM Reporting Lab: [facility] [address] [facility] [address] Performing Lab: [facility] [address] [facility] [address] ANTI-HEP C(EIA) NEGATIVE NEGATIVE Encounter Notes: All associated encounter notes This section contains the clinical notes associated to the Encounter. Date/Time Encounter Note(s) Provider Source Jun 25, 2022 03:12 PM NO SHOW NOTE: [facility] LOCAL TITLE: NO SHOW/CANCELLATION CLINIC NOTE STANDARD TITLE: NO SHOW NOTE DATE OF NOTE: JUN 25, 2022@15:12 ENTRY DATE: JUN 25, 2022@15:12:12 AUTHOR: MORELIA CHAO EXP COSIGNER: URGENCY: STATUS: COMPLETED not seen for scheduled appointment due t o: cancelled [facility] appt 06/26/22 Appointment Rescheduled: No patient decided he didn't wa nt this and plans to get ID card done at the [facility] when he's over there sometime. Please review patient chart and medications for renewal needs (if appropriate). /el/ [facility] Signed: 06/25/2022 15:12
--- OUTSIDE RECORDS SUMMARY | 2022-07-04 15:21 | XMS_ITS | Continuity of Care Document ---
:1945 Author Organization [facility] Care Team Providers Name Role Phone [facility] Unavailable Unavailable Problems Combined list of problems from 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 It does not include entries that were removed or entered in error. 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 [facility] Chronic Pain Active Condition SADAF URIEL Syndrome (SCT [facility]OC 208412924) Colostomy present Active Condition [facility] Constipation (SCT Active Condition [facility] 43730115) [facility] Continuous opioid Active Condition [facility] dependence [facility] COPD - Chronic Active Condition GUSTAVO T [facility] Obstructive [facility] Pulmonary Disease (SCT 84487327) Dementia Active Condition [facility]EL [facility] Depression (SCT Active Condition ALBE RT URIEL 22570867) [facility] Diabetes Mellitus Active Condition [facility] Type 2 (SCT CBOC 53203090) 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 [facility] Hearing Loss (SCT Active Condition [facility]QU[facility] 48965653) [facility] History of Deep Vein Active Condition S[facility] Thrombosis (SCT [facility]OC 481736083) History of pressure Active Condition [facility] injury [facility] HTN - Hypertension Active Condition A LBERT URIEL (SCT 86780822) CBOC Hyperlipidemia (SCT Active Condition SADAF URIEL 88565041) [facility]OC Hyponatremia Active Condition [facility]EL [facility] Long-term current Active Condition [facility] use of anticoagulant [facility] Neurogenic Bladder Active Condition A LBERT URIEL (SCT 456901921) [facility] Neurogenic bowel Active Condition ALB ERT URIEL [facility] Osteoporosis (SCT Active Condition AL JACQUES [facility]EL 73899069) [facility] Paraplegia Active Condition SADAF LE A [facility]OC Suprapubic urinary Active Condition A LBERT [facility]EL catheter in situ CBO C Supraventricular Active Condition ALB ERT URIEL tachycardia [facility] Tinnitus (SCT Active Condition SADAF TREVINO 49456353) [facility]OC Vitamin D Deficiency Active Condition SADAF TREVINO (SCT 6075485) [facility]OC Diagnosis: ICD-10-CM active Diagnosis [facility] R54 Age-related HCS physical debilitywith Provider Comments: Age-Related Physical Debility Diagnosis: ICD-10-CM active Diagnosis [facility] Z73.6 Limitation of HCS activities due to disabilitywith Provider Comments: Limitation of activities due to disability Diagnosis: ICD-10-CM active Diagnosis S[facility] TREVINO 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 Medications provided include 1) outpatient medications from the last 15 months, and 2) patient-reported medications. Medication Details Route Status Patient Prescription Prescription Last Ordering Order Source Instructions Expires Number Dispense Provider Date Date ALBUTEROL Active [id number] MAGAN,TE 11/25/ Pharmac SULFATE HFA 2 RENCE 2021 y Data (albuterol Transac sulfate), tion 90 MCG, HFA Service AER AD, Facilit INHALATION, y LUPIN PHARMACEU, 8.5 g CANISTER AMLODIPINE Active [id number] MAGAN,TE 06/19 / Pharmac BESYLATE 1 RENCE 2020 y Data (AMLODIPINE Transac BESYLATE), tion 2.5 MG, Service TABLET, Facilit ORAL, y [facility], 90 ea. BOTTLE AMLODIPINE Active [id number] MAGAN,TE 09/10 / Pharmac BESYLATE 1 CE 2020 y Data (AMLODIPINE Transac BESYLATE), tion 2.5 MG, Service TABLET, Facilit ORAL, y [facility], 90 ea. BOTTLE AMLODIPINE Active [id number] MAGAN,TE 05/22 / Pharmac BESYLATE 1 CE 2020 y Data (AMLODIPINE Transac BESYLATE), tion 2.5 MG, Service TABLET, Facilit ORAL, y [facility], 90 ea. BOTTLE AMLODIPINE Active [id number] MAGAN,TE 02/09 / Pharmac BESYLATE 2 RENCE 2021 y Data (AMLODIPINE Transac BESYLATE), tion 5 MG, Service TABLET, Facilit ORAL, y [facility], 90 ea. BOTTLE AMLODIPINE Active [id number] MAGAN,TE 05/07 / Pharmac BESYLATE 2 RENCE 2021 y Data (AMLODIPINE Transac BESYLATE), tion 5 MG, Service TABLET, Facilit ORAL, y [facility], 90 ea. BOTTLE AMLODIPINE Active [id number] MAGAN,TE 10/13 / Pharmac BESYLATE 1 RENCE 2020 y Data (AMLODIPINE Transac BESYLATE), tion 5 MG, Service TABLET, Facilit ORAL, y [facility], 90 ea. BOTTLE AMLODIPINE TAKE ORALLY ACTIVE GRANDIA,C 05/29/ AL JACQUES BESYLATE ONE-HALF ON2021 URIEL 10MG TAB TABLET [facility] BY MOUTH TWICE A DAY ARIPIPRAZOL Active [id number] MAGAN,TE 09/07 / Pharmac E 1 RENCE 2020 y Data (aripiprazo Transac le), 2 MG, tion TABLET, Service ORAL, Facilit [facility] y [facility]ORAT[facility], 30 ea. BOTTLE ARIPIPRAZOL Active [id number] MAGAN,TE 09/07 / Pharmac E 1 RENCE 2020 y Data (aripiprazo Transac le), 2 MG, tion TABLET, Service ORAL, Facilit ASCEND y LABORATO, 30 ea. BOTTLE ARIPIPRAZOL Active [id number] MAGAN,TE 08/12/ Pharmac E 1 RENCE 2020 y Data (aripiprazo Transac le), 2 MG, tion TABLET, Service ORAL, Facilit ASCEND y [facility]ORATO, 30 ea. BOTTLE ARIPIPRAZOL Active [id number] MAGAN,TE / Pharmac E 2 RENCE 2021 y Data (aripiprazo Transac le), 2 MG, tion TABLET, Service ORAL, Facilit XLCARE y PHARMACE, 500 ea. BOTTLE ARIPIPRAZOL Active [id number] MAGAN,TE / Pharmac E 2 RENCE 2021 y Data (aripiprazo Transac le), 2 MG, tion TABLET, Service ORAL, Facilit XLCARE y PHARMACE, 500 ea. BOTTLE ARIPIPRAZOL TAKE 2MG ORALLY ACTIVE GRANDIA,C 05/29 / SADAF E TAB BY MOUTH ON2021 URIEL TWICE A CBOC DAY ATORVASTATI TAKE ORALLY ACTIVE MARGIE,C LBERT N CA 80MG ONE-HALF ON2021 URIEL TAB TABLET [facility] BY MOUTH EVERY DAY ATORVASTATI Active [id number] MAGAN,TE 11/11 5/ Pharmac N CALCIUM 2 RENCE 2021 y Data (atorvastat Transac in tion calcium), Service 40 MG, Facilit TABLET, y ORAL, [facility], 1000 ea. BOTTLE ATORVASTATI Active [id number] MAGAN,TE 03/11 0/ Pharmac N CALCIUM 2 RENCE 2021 y Data (atorvastat Transac in tion calcium), Service 40 MG, Facilit TABLET, y ORAL, [facility], 1000 ea. BOTTLE ATORVASTATI Active [id number] MAGAN,TE 6/ Pharmac N CALCIUM 2 RENCE 2021 y Data (atorvastat Transac in tion calcium), Service 40 MG, Facilit TABLET, y ORAL, [facility], 1000 ea. BOTTLE ATORVASTATI Active [id number] MAGAN,TE 4/ Pharmac N CALCIUM 1 RENCE 2020 y Data (atorvastat Transac in tion calcium), Service 40 MG, Facilit TABLET, y ORAL, [facility], 1000 ea. BOTTLE AZITHROMYCI Active [id number] MAGAN,TE 11/11 5/ Pharmac N 2 RENCE 2021 y Data (azithromyc Transac in), 250 tion MG, TABLET, Service ORAL, Facilit AUROBINDO y PHARM, 6 ea. BLIST PACK AZITHROMYCI Active [id number] MAGAN,TE / Pharmac N 2 RENCE 2021 y Data (azithromyc Transac in), 250 tion MG, TABLET, Service ORAL, Facilit [employer] 30 ea. BOTTLE BACLOFEN Active [id number] MAGAN,TE 05/24/ Pharmac (baclofen), 2 RENCE 2021 y Data 20 MG, Transac TABLET, tion ORAL, Service MARLEX Facilit PHARM., y 1000 ea. BOTTLE BACLOFEN Active [id number] MAGAN,TE 09/18/ Pharmac (baclofen), 1 2020 y Data 20 MG, Transac TABLET, tion ORAL, Service Trae RICE., 100 y ea. BOTTLE BACLOFEN TAKE ONE ORALLY ACTIVE MARGIE,C 05/29/ A LBERT 20MG TAB TABLET ONNIE 2021 [facility] BY MOUTH [facility] FOUR TIMES A DAY BUPROPION TAKE ONE ORALLY ACTIVE GRANDIA,C 05/29/ SADAF HCL 150MG TABLET ONNIE 2021 URIEL 12HR TAB,SA BY MOUTH [facility]OC TWICE A DAY BUPROPION Active [id number] MAGAN,TE 08/07 / Pharmac HCL SR 1 2020 y Data (bupropion Transac HCl), 150 tion MG, TAB SR Service 12H, ORAL, Facilit 'S y LAB, 500 ea. BOTTLE BUPROPION Active [id number] MAGAN,TE 11/25 / Pharmac HCL SR 2 2021 y Data (bupropion Transac HCl), 150 tion MG, TAB SR Service 12H, ORAL, Facilit PAVEL y PHARMACEU, 60 ea. BOTTLE BUPROPION Active [id number] MAGAN,TE 02/15 / Pharmac HCL SR 2 2021 y Data (bupropion Transac HCl), 150 tion MG, TAB SR Service 12H, ORAL, Facilit PAVEL y PHARMACEU, 60 ea. BOTTLE BUPROPION Active [id number] MAGAN,TE 05/22 / Pharmac HCL SR 2 2021 y Data (bupropion Transac HCl), 150 tion MG, TAB SR Service 12H, ORAL, Facilit PAVEL y PHARMACEU, 60 ea. BOTTLE BUPROPION Active [id number] MAGAN,TE 06/10 / Pharmac HCL SR 1 2020 y Data (bupropion Transac HCl), 150 tion MG, TAB SR Service 12H, ORAL, Facilit SANDOZ, 60 y ea. BOTTLE BUPROPION Active [id number] MAGAN,TE 05/02 / Pharmac HCL SR 1 2020 y Data (bupropion Transac HCl), 150 tion MG, TAB SR Service 12H, ORAL, Facilit SANDOZ, 60 y ea. BOTTLE BUPROPION Active [id number] MAGAN,TE 06/09/ Pharmac HCL SR 1 RENCE 2020 y Data (bupropion Transac HCl), 150 tion MG, TAB SR Service 12H, ORAL, Facilit [facility] y [facility], 500 ea. BOTTLE CEPHALEXIN Active [id number] TAREEN,BA 12/04 / Pharmac (CEPHALEXIN 2 SIR 2021 y Data MONOHYDRATE Transac ), 250 MG, tion CAPSULE, Service ORAL, Facilit [facility]ORAT[facility], 100 ea. BOTTLE CEPHALEXIN Active [id number] TAREEN,BA 02/28 / Pharmac (CEPHALEXIN 2 SIR 2021 y Data MONOHYDRATE Transac ), 250 MG, tion CAPSULE, Service ORAL, Facilit [facility] y [facility]ORAT[facility], 100 ea. BOTTLE CEPHALEXIN Active [id number] TAREEN,BA 08/31 / Pharmac (CEPHALEXIN 1 SIR 2020 y Data MONOHYDRATE Transac ), 250 MG, tion CAPSULE, Service ORAL, Facilit [facility] y [facility]ORAT[facility], 100 ea. BOTTLE CEPHALEXIN Active [id number] TAREEN,BA 06/09 / Pharmac (CEPHALEXIN 1 SIR 2020 y Data MONOHYDRATE Transac ), 250 MG, tion CAPSULE, Service ORAL, Facilit [facility]END y LABORAT[facility], 100 ea. BOTTLE CEPHALEXIN Active [id number] MAGAN,TE 06/02 / Pharmac (CEPHALEXIN 2 RENCE 2021 y Data MONOHYDRATE Transac ), 250MG, tion CAPSULE, Service ORAL, TEVA Facilit [place], 100 y ea. BOTTLE CEPHALEXIN TAKE 1 ORALLY ACTIVE GRANDIA,C 05/29/ A LBERT 250MG CAP CAPSULE ONNIE M 2021 [facility] BY MOUTH [facility] EVERY DAY CHOLECALCIF TAKE ONE ORALLY ACTIVE GRANDIA,C 05/29 / SADAF GILSON 25MCG TABLET ONNIE M 2021 URIEL (1,000UNIT) BY MOUTH CBOC TAB EVERY DAY CIPROFLOXAC Active [id number] RICH,DI 02 4/ Pharmac IN HCL 1 DIDI 2021 y Data (ciprofloxa Transac amena HCl), tion 500 MG, Service TABLET, Facilit ORAL, y METHOD PHARMACE, 500 ea. BOTTLE DONEPEZIL Active [id number] MAGAN,TE 02/18/ Pharmac HCL 2 2021 y Data (DONEPEZIL Transac HCL), 5 MG, tion TABLET, Service ORAL, [facility] [employer] [facility], y 30 ea. BOTTLE DONEPEZIL Active [id number] MAGAN,TE 05/16/ Pharmac HCL 2 2021 y Data (DONEPEZIL Transac HCL), 5 MG, tion TABLET, Service ORAL, [facility] [employer] [facility], y 30 ea. BOTTLE DONEPEZIL Active [id number] MAGAN,TE 11/20/ Pharmac HCL 2 2021 y Data (DONEPEZIL Transac HCL), 5 MG, tion TABLET, Service ORAL, [facility], y 30 ea. BOTTLE DONEPEZIL Active [id number] MAGAN,TE 08/24/ Pharmac HCL 1 2020 y Data (DONEPEZIL Transac HCL), 5 MG, tion TABLET, Service ORAL, [employer] [facility], y 30 ea. BOTTLE DONEPEZIL Active [id number] MAGAN,TE 06/05/ Pharmac HCL 1 2020 y Data (DONEPEZIL Transac HCL), 5 MG, tion TABLET, Service ORAL, [employer] [facility], y 30 ea. BOTTLE DONEPEZIL Active [id number] MAGAN,TE 05/03/ Pharmac HCL 1 2020 y Data (DONEPEZIL Transac HCL), 5 MG, tion TABLET, Service ORAL, [employer] [facility], y 30 ea. BOTTLE DONEPEZIL TAKE ORALLY ACTIVE GRANDIA,C 05/29/ ALB ERT HCL 10MG ONE-HALF ONNIE M 2021 [facility] TAB TABLET [facility]OC BY MOUTH EVERY DAY DULOXETINE Active [id number] MAGAN,TE 06/12 9/ Pharmac HCL 1 REN2020 y Data (DULOXETINE Transac HCL), 60 tion MG, CAPSULE Service DR ORAL, [facility] y 1000 ea. BOTTLE DULOXETINE Active [id number] MAGAN,TE 11/13 1/ Pharmac HCL 1 2021 y Data (DULOXETINE Transac HCL), 60 tion MG, CAPSULE Service , ORAL, Facilit [employer] y 1000 ea. BOTTLE DULOXETINE Active [id number] MAGAN,TE 8/ Pharmac HCL 2 2021 y Data (DULOXETINE Transac HCL), 60 tion MG, CAPSULE Service DR ORAL, Facilit [employer] y 1000 ea. BOTTLE DULOXETINE Active [id number] MAGAN,TE 04/12 3/ Pharmac HCL 2 2021 y Data (DULOXETINE Transac HCL), 60 tion MG, CAPSULE Service , ORAL, Facilit [employer] y 1000 ea. BOTTLE DULOXETINE Active [id number] MAGAN,TE 03/12 6/ Pharmac HCL 1 2020 y Data (DULOXETINE Transac HCL), 60 tion MG, CAPSULE Service DR ORAL, Facilit [employer] y 1000 ea. BOTTLE DULOXETINE TAKE 2 ORALLY ACTIVE GRANDIA,C 05/29/ A LBERT HCL 30MG CAPSULES ONNI2021 URIEL CAP,EC BY MOUTH [facility]OC TWICE A DAY FAMOTIDINE Active [id number] MAGAN,TE 06/12 2/ Pharmac (famotidine 2 2021 y Data ), 20 MG, Transac TABLET, tion ORAL, PD-RX Service PHARM, 90 Facilit ea. BOTTLE y FAMOTIDINE Active [id number] MAGAN,TE 11/11 5/ Pharmac (famotidine 2 2021 y Data ), 20 MG, Transac TABLET, tion ORAL, PD-RX Service PHARM, 90 Facilit ea. BOTTLE y FAMOTIDINE Active [id number] MAGAN,TE 03/11 6/ Pharmac (famotidine 2 2021 y Data ), 20 MG, Transac TABLET, tion ORAL, PD-RX Service PHARM, 90 Facilit ea. BOTTLE y FAMOTIDINE TAKE ONE ORALLY ACTIVE GRANDIA,C 05/29/ SADAF 20MG TAB TABLET ONNIE M 2021 [facility] BY MOUTH [facility] TWICE A DAY FLUTICASONE Active [id number] MAGAN,TE / Pharmac PROPIONATE 2 2021 y Data (FLUTICASON Transac E tion PROPIONATE) Service , 50 MCG, Facilit SPRAY SUSP, y NASAL, [employer] 16 g AER W/ADAP FLUTICASONE Active [id number] MAGAN,TE 11/11 5/ Pharmac PROPIONATE 2 RENCE 2021 y Data (FLUTICASON Transac E tion PROPIONATE) Service , 50MCG, Facilit SPRAY SUSP, y NASAL, [facility] 16 g AER W/ADAP FUROSEMIDE Active [id number] MAGAN,TE 02/21 / Pharmac (furosemide 2 RENCE 2021 y Data ), 40 MG, Transac TABLET, tion ORAL, [employer], Facilit 1000 ea. y BOTTLE FUROSEMIDE Active [id number] MAGAN,TE 07/29 Pharmac (furosemide 1 RENCE 2020 y Data ), 40 MG, Transac TABLET, tion ORAL, [employer], Facilit 1000 ea. y BOTTLE FUROSEMIDE Active [id number] MAGAN,TE 11/29 Pharmac (furosemide 2 RENCE 2021 y Data ), 40 MG, Transac TABLET, tion ORAL, [facility], Facilit 1000 ea. y BOTTLE FUROSEMIDE Active [id number] MAGAN,TE 06/13 / Pharmac (FUROSEMIDE 2 RENCE 2021 y Data ), 40MG, Transac TABLET, tion ORAL, Service BHUMI [employer] [facility] 1000 y ea. BOTTLE FUROSEMIDE TAKE ONE ORALLY ACTIVE GRANDCAROLYNNC 05/29/ SADAF 40MG TAB TABLET ONNIE M 2021 URI[facility] BY MOUTH [facility]OC TWICE A DAY GABAPENTIN Active [id number] MAGAN,TE 02 5/ Pharmac (gabapentin 2 RENCE 2021 y Data ), 400 MG, Transac CAPSULE, tion ORAL, [employer] 500 Facilit ea. BOTTLE y GABAPENTIN Active [id number] MAGAN,TE 03/11 6/ Pharmac (gabapentin 2 RENCE 2021 y Data ), 400 MG, Transac CAPSULE, tion ORAL, [employer], [employer] 500 Facilit ea. BOTTLE y GABAPENTIN Active [id number] MAGAN,TE 06/11 8/ Pharmac (gabapentin 2 RENCE 2021 y Data ), 400 MG, Transac CAPSULE, tion ORAL, [employer], [employer] 500 Facilit ea. BOTTLE y GABAPENTIN Active [id number] MAGAN,TE 12/14 / Pharmac (GABAPENTIN 1 2021 y Data ), 400 MG, Transac CAPSULE, tion ORAL, Service [facility] Facilit RX LL, 100 y ea. BOTTLE GABAPENTIN TAKE 1 ORALLY ACTIVE Jey HANSON 05/29/ A LBERT 400MG CAP CAPSULE ONNIKKY [place] 2021 URI[facility] BY MOUTH [facility]OC THREE TIMES A DAY LORAZEPAM Active [id number] MAGAN,TE 05/16/ Pharmac (lorazepam) 2 2021 y Data , 0.5 MG, Transac TABLET, tion ORAL, Service AUROBINDO Facilit PHARM, 500 y ea. BOTTLE LORAZEPAM Active [id number] MAGAN,TE 06/19/ Pharmac (lorazepam) 2 2021 y Data , 0.5 MG, Transac TABLET, tion ORAL, Service AUROBINDO Facilit PHARM, 500 y ea. BOTTLE LORAZEPAM Active [id number] MAGAN,TE 01/20/ Pharmac (lorazepam) 2 2021 y Data , 0.5 MG, Transac TABLET, tion ORAL, Service AUROBINDO Facilit PHARM, 500 y ea. BOTTLE LORAZEPAM Active [id number] MAGAN,TE 02/28/ Pharmac (lorazepam) 2 2021 y Data , 0.5 MG, Transac TABLET, tion ORAL, Service AUROBINDO Facilit PHARM, 500 y ea. BOTTLE LORAZEPAM Active [id number] MAGAN,TE 04/14/ Pharmac (lorazepam) 2 2021 y Data , 0.5 MG, Transac TABLET, tion ORAL, Service AUROBINDO Facilit PHARM, 500 y ea. BOTTLE LORAZEPAM Active [id number] MAGAN,TE 09/22/ Pharmac (lorazepam) 1 2020 y Data , 0.5 MG, Transac TABLET, tion ORAL, Service AUROBINDO Facilit PHARM, 500 y ea. BOTTLE LORAZEPAM Active [id number] MAGAN,TE 10/28/ Pharmac (lorazepam) 1 2020 y Data , 0.5 MG, Transac TABLET, tion ORAL, Service AUROBINDO Facilit PHARM, 500 y ea. BOTTLE LORAZEPAM Active [id number] MAGAN,TE 12/17/ Pharmac (lorazepam) 2 CE 2021 y Data , 0.5 MG, Transac TABLET, tion ORAL, Service AUROBINDO Facilit PHARM, 500 y ea. BOTTLE LORAZEPAM Active [id number] MAGAN,TE Pharmac (lorazepam) 1 2020 y Data , 0.5 MG, Transac TABLET, tion ORAL, Service AUROBINDO Facilit PHARM, 500 y ea. BOTTLE LORAZEPAM Active [id number] MAGAN,TE Pharmac (lorazepam) 1 2020 y Data , 0.5 MG, Transac TABLET, tion ORAL, Service AUROBINDO Facilit PHARM, 500 y ea. BOTTLE LORAZEPAM Active [id number] MAGAN,TE Pharmac (lorazepam) 1 2020 y Data , 0.5 MG, Transac TABLET, tion ORAL, Service AUROBINDO Facilit PHARM, 500 y ea. BOTTLE LORAZEPAM TAKE ONE ORALLY ACTIVE GRANDIA,C 05/29/ SADAF 0.5MG TAB TABLET ONNIE 2021 URI[facility] BY MOUTH CBOC FOUR TIMES A DAY MILK OF TAKE ORALLY ACTIVE GRANDIA,C 05/29/ GUSTAVO T MAGNESIA 30ML BY ONNIE M 2021 URIEL MOUTH CBOC EVERY DAY NEEDED MULTIVITAMI TAKE ONE ORALLY ACTIVE GRANDIA,C 05/29 / SADAF NS CAP/TAB TABLET ONNIE 2021 URI[facility] BY MOUTH CBOC EVERY DAY NITROFURANT Active [id number] MAGAN,TE 12/12/ Pharmac OIN 2 REN2021 y Data MACROCRYSTA Transac L tion (NITROFURAN Service TOIN/NITROF Facilit URAN MAC), y 100MG, CAPSULE, ORAL, [facility], 100 ea. BOTTLE NYSTATIN Active [id number] MAGAN,TE Pharmac (nystatin), 2 RENCE 2021 y Data 938594/G, Transac POWDER, tion TOPICAL, Service [facility] Facilit RX LL, 60 g y SQUEEZ BTL OXYCODONE Active [id number] BYRD,OR Pharmac HCL 2 VIDAL 2021 y Data (OXYCODONE Transac HCL), 10 tion MG, TABLET, Service ORAL, Facilit DE JESUS y PHARMACE, 100 ea. BOTTLE OXYCODONE Active [id number] MAGAN,TE 05/11/ Pharmac HCL 2 2021 y Data (OXYCODONE Transac HCL), 10 tion MG, TABLET, Service ORAL, Facilit DE JESUS y PHARMACE, 100 ea. BOTTLE OXYCODONE Active [id number] MAGAN,TE 04/09/ Pharmac HCL 2 2021 y Data (OXYCODONE Transac HCL), 10 tion MG, TABLET, Service ORAL, Facilit DE JESUS y PHARMACE, 100 ea. BOTTLE OXYCODONE Active [id number] MAGAN,TE 03/21/ Pharmac HCL 2 2021 y Data (OXYCODONE Transac HCL), 10 tion MG, TABLET, Service ORAL, Facilit DE JESUS y PHARMACE, 100 ea. BOTTLE OXYCODONE Active [id number] MAGAN,TE 02/21/ Pharmac HCL 2 2021 y Data (OXYCODONE Transac HCL), 10 tion MG, TABLET, Service ORAL, Facilit DE JESUS y PHARMACE, 100 ea. BOTTLE OXYCODONE Active [id number] MAGAN,TE 02/09/ Pharmac HCL 2 2021 y Data (OXYCODONE Transac HCL), 10 tion MG, TABLET, Service ORAL, Facilit DE JESUS y PHARMACE, 100 ea. BOTTLE OXYCODONE Active [id number] MAGAN,TE 02/03/ Pharmac HCL 2 2021 y Data (OXYCODONE Transac HCL), 10 tion MG, TABLET, Service ORAL, Facilit DE JESUS y PHARMACE, 100 ea. BOTTLE OXYCODONE Active [id number] MAGAN,TE 11/25/ Pharmac HCL 2 2021 y Data (OXYCODONE Transac HCL), 10 tion MG, TABLET, Service ORAL, Facilit DE JESUS y PHARMACE, 100 ea. BOTTLE OXYCODONE Active [id number] MAGAN,TE 05/30/ Pharmac HCL 1 2020 y Data (OXYCODONE Transac HCL), 10 tion MG, TABLET, Service ORAL, Facilit DE JESUS y PHARMACE, 100 ea. BOTTLE OXYCODONE TAKE TWO ORALLY ACTIVE MARGIE,C 05/29/ SADAF HCL 5MG TAB TABLETS ONNIE M 2021 [facility] BY MOUTH CBOC FOUR TIMES A DAY OXYCONTIN Active [id number] MAGAN,TE 09/22/ Pharmac (OXYCODONE 1 RENCE 2020 y Data HCL), 15 Transac MG, TAB ER tion 12H, ORAL, Service PURDUE Facilit PHARMA L, y 100 ea. BOTTLE OXYCONTIN Active [id number] MAGAN,TE 08/22/ Pharmac (OXYCODONE 1 RENCE 2020 y Data HCL), 15 Transac MG, TAB ER tion 12H, ORAL, Service PURDUE Facilit PHARMA L, y 100 ea. BOTTLE OXYCONTIN Active [id number] MAGAN,TE Pharmac (OXYCODONE 1 RENCE 2020 y Data HCL), 15 Transac MG, TAB ER tion 12H, ORAL, Service PURDUE Facilit PHARMA L, y 100 ea. BOTTLE OXYCONTIN Active [id number] MAGAN,TE 06/28/ Pharmac (OXYCODONE 1 RENCE 2020 y Data HCL), 15 Transac MG, TAB ER tion 12H, ORAL, Service PURDUE Facilit PHARMA L, y 100 ea. BOTTLE OXYCONTIN Active [id number] MAGAN,TE 05/30/ Pharmac (OXYCODONE 1 RENCE 2020 y Data HCL), 15 Transac MG, TAB ER tion 12H, ORAL, Service PURDUE Facilit PHARMA L, y 100 ea. BOTTLE OXYCONTIN Active [id number] MAGAN,TE 04/24/ Pharmac (OXYCODONE 1 RENCE 2020 y Data HCL), 15 Transac MG, TAB ER tion 12H, ORAL, Service PURDUE Facilit PHARMA L, y 100 ea. BOTTLE OXYCONTIN Active [id number] MAGAN,TE 10/03/ Pharmac (OXYCODONE 1 RENCE 2020 y Data HCL), 30 Transac MG, TAB ER tion 12H, ORAL, Service PURDUE Facilit PHARMA L, y 100 ea. BOTTLE OXYCONTIN Active [id number] MAGAN,TE 09/04/ Pharmac (OXYCODONE 1 RENCE 2020 y Data HCL), 30 Transac MG, TAB ER tion 12H, ORAL, Service PURDUE Facilit PHARMA L, y 100 ea. BOTTLE OXYCONTIN Active [id number] MAGAN,TE 08/02/ Pharmac (OXYCODONE 1 RENCE 2020 y Data HCL), 30 Transac MG, TAB ER tion 12H, ORAL, Service PURDUE Facilit PHARMA L, y 100 ea. BOTTLE OXYCONTIN Active [id number] MAGAN,TE 07/06/ Pharmac (OXYCODONE 1 RENCE 2020 y Data HCL), 30 Transac MG, TAB ER tion 12H, ORAL, Service PURDUE Facilit PHARMA L, y 100 ea. BOTTLE OXYCONTIN Active [id number] MAGAN,TE 06/10/ Pharmac (OXYCODONE 1 RENCE 2020 y Data HCL), 30 Transac MG, TAB ER tion 12H, ORAL, Service PURDUE Facilit PHARMA L, y 100 ea. BOTTLE OXYCONTIN Active [id number] MAGAN,TE 05/09/ Pharmac (OXYCODONE 1 RENCE 2020 y Data HCL), 30 Transac MG, TAB ER tion 12H, ORAL, Service PURDUE Facilit PHARMA L, y 100 ea. BOTTLE POTASSIUM Active [id number] MAGAN,TE 07/09/ Pharmac CHLORIDE 1 2020 y Data (potassium Transac chloride), tion 20 MEQ, TAB Service ER PRT, Facilit ORAL, y AVKARE, 500 ea. BOTTLE POTASSIUM Active [id number] MAGAN,TE 10/16 / Pharmac CHLORIDE 1 2020 y Data (potassium Transac chloride), tion 20 MEQ, TAB Service ER PRT, Facilit ORAL, y AVKARE, 500 ea. BOTTLE POTASSIUM Active [id number] MAGAN,TE 06/30/ Pharmac CHLORIDE 2 2021 y Data (potassium Transac chloride), tion 20 MEQ, TAB Service ER PRT, Facilit ORAL, y UPSHER-RODOLFO H LA, 1000 ea. BOTTLE POTASSIUM Active [id number] MAGAN,TE 07/02 / Pharmac CHLORIDE 2 2021 y Data (potassium Transac chloride), tion 20 MEQ, TAB Service ER PRT, Facilit ORAL, y XLCARE PHARMACE, 100 ea. BOTTLE POTASSIUM Active [id number] MAGAN,TE 03/26 / Pharmac CHLORIDE 2 2021 y Data (potassium Transac chloride), tion 20 MEQ, TAB Service ER PRT, Facilit ORAL, y XLCARE PHARMACE, 100 ea. BOTTLE POTASSIUM TAKE ONE ORALLY ACTIVE MARGIEC 05/29/ SADAF CHLORIDE TABLET ONNIE M 2021 [facility] 20MEQ BY MOUTH CBOC TAB,SA TWICE A (DISPERSIBL DAY ) PROAIR HFA Active [id number] MAGAN,TE 11/11 Pharmac (ALBUTEROL 2 2021 y Data SULFATE), Transac 90 MCG, HFA tion AER AD, Service INHALATION, Facilit TEVA y SPECIALTY, 8.5 g CANISTER WARFARIN Active [id number] MAGAN,TE 03/27/ Pharmac SODIUM 2 2021 y Data (WARFARIN Transac SODIUM), 5 tion MG, TABLET, Service ORAL, TEVA Facilit [place], 100 y ea. BOTTLE WARFARIN Active [id number] MAGAN,TE 09/04/ Pharmac SODIUM 1 2020 y Data (WARFARIN Transac SODIUM), 5 tion MG, TABLET, Service ORAL, TEVA Facilit [place], 100 y ea. BOTTLE WARFARIN Active [id number] MAGAN,TE 06/21/ Pharmac SODIUM 1 2020 y Data (WARFARIN Transac SODIUM), 5 tion MG, TABLET, Service ORAL, TEVA Facilit [place], 100 y ea. BOTTLE WARFARIN Active [id number] MAGAN,TE 05/17/ Pharmac SODIUM 2 2021 y Data (warfarin Transac sodium), tion 7.5 MG, Service TABLET, Facilit ORAL, TEVA y [place], 100 ea. BOTTLE WARFARIN Active [id number] MAGAN,TE 02/14/ Pharmac SODIUM 2 2021 y Data (warfarin Transac sodium), tion 7.5 MG, Service TABLET, Facilit ORAL, TEVA y [place], 100 ea. BOTTLE WARFARIN Active [id number] MAGAN,TE 12/22/ Pharmac SODIUM 1 RENCE 2020 y Data (warfarin Transac sodium), tion 7.5 MG, Service TABLET, Facilit ORAL, TEVA y [place], 100 ea. 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), 5 complet [facility] LF TETANUS 2021 ed [facility] TOXOID, [facility] PRESERVATIVE FREE, ADSORBED INFLUENZA, complet [place] UNSPECIFIED 2020 ed [facility] S COVID-19 3 complet [place] ([place]), 2020 ed [facility] MRNA, LNP-S, H CS PF, 30 MCG/0.3 ML DOSE COVID-19 2 complet [place] ([place]), 2020 ed [facility] MRNA, LNP-S, H CS PF, 30 MCG/0.3 ML DOSE COVID-19 1 complet [place] (PFIZER), 2020 ed [facility] MRNA, LNP-S, H CS PF, 30 MCG/0.3 ML DOSE PNEUMOCOCCAL complet [facility] [place] CONJUGATE PCV 2014 ed [facility] 13 [facility]CS ZOSTER LIVE complet [facility] [place] 2012 ed [facility] PNEUMOCOCCAL complet [place] POLYSACCHARID 2010 ed [facility] PPV23 [facility] TDAP complet [facility] [place] [facility] Results Combined list of recent chemistry, hematology and other laboratory results from Department of Defense and Veterans Affairs, ranging from 15 months to all on record, depending upon the facility. Order Results Value Reference Date Interpretation Specimen Commen ts Source Name Range HIV AG/AB HIV 1+2 NEGATIVE 05/28 Specimen Type : SERUM SADAF SCREEN AB+HIV1 P24 No comment e ntered. URIEL AG Ordering Provid er: [facility] [[facility]] Report Relea sed Date/Time: May 28, 2022 03:06 PM IN SERUM OR Reporting L ab: [facility] PLASMA BY [address] [facility] [address] IMMUNOASSAY Performing Lab: [facility] [address] [place] [address] TSH THYROTROPIN 2.42 0.35 - 05/28 Specimen Typ e: PLASMA SADAF W/REFLEX [UNITS/VOLU 4.94 No comment entered. URIEL TO FREE ME] IN Ordering Provid er: SHANTAL HANSON T4 SERUM OR Report Release d Date/Time: May 28, 2022 03:06 PM PLASMA Reporting Lab: [facility] [address] [place] [address] Performing Lab: [facility] [address] [place] [place] [address] COMPREHEN CREATININE 0.7 0.7 - 1.2 05/28 Specimen Type: PLASMA SADAF SIVE [MASS/VOLUM /2021 No comment e ntered. URIEL METABOLIC E] IN SERUM Ordering Provider: [facility]AL [facility]SON [facility] PANEL+MG OR PLASMA Report Relea sed Date/Time: May 28, 2022 03:06 PM Reporting Lab: [facility] [address] [place] [address] Performing Lab: [facility] [address] [place] [facility] [address] COMPREHEN UREA 13 8 - 26 05/28 Specimen Type: PLASMA SADAF SIVE NITROGEN /2021 No comment ente red. URIEL METABOLIC [MASS/VOLUM Ordering Provider: SHANTAL [facility]SON [facility] PANEL+MG E] IN SERUM Report Rel eased Date/Time: May 28, 2022 03:06 PM OR PLASMA Reporting Lab : [facility] [address] [place] [facility] [address] Performing Lab: [facility] [address] [place] [facility] [address] COMPREHEN GLUCOSE 98 74 - 100 05/28 Specimen Type : PLASMA SADAF SIVE [MASS/VOLUM /2021 No comment e ntered. URIEL METABOLIC E] IN SERUM Ordering Provider: [facility]AL [facility] PANEL+MG OR PLASMA Report Relea sed Date/Time: May 28, 2022 03:06 PM Reporting Lab: [facility] [address] [place] [facility] [address] Performing Lab: [facility] [address] [place] [facility] [address] COMPREHEN SODIUM 138 136 - 145 05/28 Specimen Typ e: PLASMA SADAF SIVE [MOLES/VOLU /2021 No comment e ntered. URIEL METABOLIC ME] IN Ordering Prov ider: [facility]AL [facility] PANEL+MG SERUM OR Report Releas ed Date/Time: May 28, 2022 03:06 PM PLASMA Reporting Lab: [facility] [address] [place] [facility] [address] Performing Lab: [facility] [address] [place] [facility] [address] COMPREHEN POTASSIUM 4.4 3.5 - 5.1 05/28 Specimen T ype: PLASMA SADAF SIVE [MOLES/VOLU /2021 No comment e ntered. URIEL METABOLIC ME] IN Ordering Prov ider: [facility]AL [facility] PANEL+MG SERUM OR Report Releas ed Date/Time: May 28, 2022 03:06 PM PLASMA Reporting Lab: [facility] [address] [place] [facility] [address] Performing Lab: [facility] [address] [place] [facility] [address] COMPREHEN CHLORIDE 102 98 - 107 05/28 Specimen Typ e: PLASMA SADAF SIVE [MOLES/VOLU /2021 No comment e ntered. URIEL METABOLIC ME] IN Ordering Prov ider: [facility] PANEL+MG SERUM OR Report Releas ed Date/Time: May 28, 2022 03:06 PM PLASMA Reporting Lab: [facility] [place] [address] Performing Lab: [facility] [place] [address] COMPREHEN CARBON 28 22 - 29 05/28 Specimen Type: PLASMA SADAF SIVE DIOXIDE, No comment ente red. URIEL METABOLIC TOTAL Ordering Prov ider: [facility]AL [facility] PANEL+MG [MOLES/VOLU Report Rel eased Date/Time: May 28, 2022 03:06 PM ME] IN Reporting Lab: [facility] SERUM OR ONE [facility] [place]ia [place] [facility] [address] PLASMA Performing Lab: [facility] [place] [address] COMPREHEN CALCIUM 9.4 8.4 - 10.2 05/28 Specimen Ty pe: PLASMA SADAF DAVIES [MASS/VOLUM No comment e ntered. URIEL METABOLIC E] IN SERUM Ordering Provider: [facility]AL [facility] PANEL+MG OR PLASMA Report Relea sed Date/Time: May 28, 2022 03:06 PM Reporting Lab: [facility] [address] [place] [facility] [address] Performing Lab: [facility] [place] [address] COMPREHEN PROTEIN 7.6 6.0 - 8.3 05/28 Specimen Typ e: PLASMA SADAF DAVIES [MASS/VOLUM No comment e ntered. URIEL METABOLIC E] IN SERUM Ordering Provider: [facility]AL [facility] PANEL+MG OR PLASMA Report Relea sed Date/Time: May 28, 2022 03:06 PM Reporting Lab: [facility] [address] [place] [facility] [address] Performing Lab: [facility] [address] [place] [facility] [address] COMPREHEN ALBUMIN 4.0 3.5 - 5.2 05/28 Specimen Typ e: PLASMA SADAF SIVE [MASS/VOLUM No comment e ntered. URIEL METABOLIC E] IN SERUM Ordering Provider: [facility]AL [facility] PANEL+MG OR PLASMA Report Relea sed Date/Time: May 28, 2022 03:06 PM Reporting Lab: [facility] [address] [place] [address] Performing Lab: [facility] [address] [place] [address] COMPREHEN BILIRUBIN.T 0.5 0.2 - 1.2 05/28 Specimen Type: PLASMA SADAF SIVE OTAL /2021 No comment enter ed. URIEL METABOLIC [MASS/VOLUM Ordering Provider: [facility]AL [facility]SON [facility] PANEL+MG E] IN SERUM Report Rel eased Date/Time: May 28, 2022 03:06 PM OR PLASMA Reporting Lab : [facility] [place] [address] Performing Lab: [facility] [address] [place] [address] COMPREHEN MAGNESIUM 2.1 1.6 - 2.6 05/28 Specimen T ype: PLASMA SADAF SIVE [MASS/VOLUM /2021 No comment e ntered. URIEL METABOLIC E] IN SERUM Ordering Provider: [facility]AL [facility] PANEL+MG OR PLASMA Report Relea sed Date/Time: May 28, 2022 03:06 PM Reporting Lab: [facility] [place] [address] Performing Lab: [facility] [place] [address] COMPREHEN ANION GAP 8 5 - 15 05/28 Specimen Typ e: PLASMA SADAF SIVE IN SERUM OR /2021 No comment e ntered. URIEL METABOLIC PLASMA Ordering Prov ider: [facility] PANEL+MG Report Release d Date/Time: May 28, 2022 03:06 PM Reporting Lab: [facility] [place] [address] Performing Lab: [facility] [address] [place] [facility] [address] COMPREHEN ALKALINE 108 40 - 150 05/28 Specimen Typ e: PLASMA SADAF SIVE PHOSPHATASE /2021 No comment e ntered. URIEL METABOLIC [ENZYMATIC Ordering P rovider: [facility]AL [facility] PANEL+MG ACTIVITY/VO Report Rel eased Date/Time: May 28, 2022 03:06 PM LUME] IN Reporting Lab: [facility] SERUM [place] [address] PLASMA Performing Lab: [facility] [place] [address] COMPREHEN ALANINE 27 <55 - 55 05/28 Specimen Type : PLASMA SADAF SIVE AMINOTRANSF /2021 No comment e ntered. URIEL METABOLIC ERASE Ordering Prov ider: [facility]AL [facility] PANEL+MG [ENZYMATIC Report Rele ased Date/Time: May 28, 2022 03:06 PM ACTIVITY/VO Reporting L ab: [facility] LUME] IN [address] [facility] [address] SERUM OR Performing Lab : [facility] PLASMA [place] [address] COMPREHEN ASPARTATE 21 <34 - 34 05/28 Specimen Ty pe: PLASMA SADAF KASHMIRE AMINOTRANSF /2021 No comment e ntered. URIEL METABOLIC ERASE Ordering Prov ider: [facility]AL [facility] PANEL+MG [ENZYMATIC Report Rele ased Date/Time: May 28, 2022 03:06 PM ACTIVITY/VO Reporting L ab: [facility] LUME] IN [address] [facility] [address] SERUM OR Performing Lab : [facility] PLASMA [place] [address] COMPREHEN GLOMERULAR >90 60 05/28 Specimen Ty pe: PLASMA SADAF SIVE FILTRATION /2021 No comment en tered. URIEL METABOLIC RATE/1.73 Ordering Pr ovider: [facility]AL [facility] PANEL+MG SQ Report Release d Date/Time: May 28, 2022 03:06 PM M.PREDICTED Reporting L ab: [facility] [VOLUME ONE [facility] [place] [address] RATE/AREA] Performing L ab: [facility] IN SERUM, [address] [facility] [address] PLASMA OR BLOOD BY CREATININE- BASED FORMULA (CKD-EPI) CBC LEUKOCYTES 6.27 4.0 - 11.0 05/28 Specimen T ype: BLOOD SADAF [#/VOLUME] /2021 No comment en tered. URIEL IN BLOOD BY Ordering Pr ovider: [facility]AL [facility] AUTOMATED Report Releas ed Date/Time: May 28, 2022 03:06 PM COUNT Reporting Lab: [facility] [place] [address] Performing Lab: [facility] ONE [facility] [place] [address] CBC ERYTHROCYTE 4.43 4.6 - 6.2 05/28 L Specimen T ype: BLOOD SADAF S /2021 No comment enter ed. URIEL [#/VOLUME] Ordering Pro vider: [facility]AL [facility] IN BLOOD BY Report Rele ased Date/Time: May 28, 2022 03:06 PM AUTOMATED Reporting Lab : [facility] COUNT [place] [address] Performing Lab: [facility] [address] [place] [facility] [address] CBC HEMOGLOBIN 12.9 13.5 - 05/28 L Specimen Type : BLOOD SADAF [MASS/VOLUM 17.9 No comment e ntered. URIEL E] IN BLOOD Ordering Pr ovider: [facility]AL [facility] Report Released Date/Time: May 28, 2022 03:06 PM Reporting Lab: [facility] [address] [place] [facility] [address] Performing Lab: [facility] [address] [place] [facility] [address] CBC HEMATOCRIT 40.2 41 - 54 05/28 L Specimen Type : BLOOD SADAF [VOLUME /2021 No comment enter ed. URIEL FRACTION] Ordering Prov ider: [facility]AL [facility] OF BLOOD BY Report Rele ased Date/Time: May 28, 2022 03:06 PM AUTOMATED Reporting Lab : [facility] COUNT [address] [place] [facility] [address] Performing Lab: [facility] [place] [address] CBC MCV 90.7 80 - 100 05/28 Specimen Type: BLOOD SADAF [ENTITIC /2021 No comment ente red. URIEL VOLUME] BY Ordering Pro vider: [facility]AL [facility] AUTOMATED Report Releas ed Date/Time: May 28, 2022 03:06 PM COUNT Reporting Lab: [facility] [address] [place] [facility] [address] Performing Lab: [facility] [address] [place] [facility] [address] CBC MCH 29.1 27 - 33 05/28 Specimen Type: B LOOD SADAF [ENTITIC /2021 No comment ente red. URIEL MASS] BY Ordering Provi swapnil: [facility]AL [facility] AUTOMATED Report Releas ed Date/Time: May 28, 2022 03:06 PM COUNT Reporting Lab: [facility] [address] [place] [facility] [address] Performing Lab: [facility] [address] [place] [facility] [address] CBC MCHC 32.1 32.0 - 05/28 Specimen Type: B LOOD SADAF [MASS/VOLUM 37.5 /2021 No comment e ntered. URIEL E] BY Ordering Provid er: [facility]AL [facility] AUTOMATED Report Releas ed Date/Time: May 28, 2022 03:06 PM COUNT Reporting Lab: [facility] [address] [place] [facility] [address] Performing Lab: [facility] [address] [place] [facility] [address] CBC PLATELETS 183 150 - 400 05/28 Specimen Typ e: BLOOD SADAF [#/VOLUME] /2021 No comment en tered. URIEL IN BLOOD BY Ordering Pr ovider: [facility]AL [facility] AUTOMATED Report Releas ed Date/Time: May 28, 2022 03:06 PM COUNT Reporting Lab: [facility] [address] [place] [facility] [address] Performing Lab: [facility] [address] [place] [facility] [address] CBC PLATELET 10.6 7.4 - 10.4 05/28 H Specimen Typ e: BLOOD SADAF MEAN VOLUME /2021 No comment e ntered. URIEL [ENTITIC Ordering Provi swapnil: [facility]AL [facility] VOLUME] IN Report Relea sed Date/Time: May 28, 2022 03:06 PM BLOOD BY Reporting Lab: [facility] AUTOMATED [address] [place] [facility] [address] COUNT Performing Lab: [facility] [address] [place] [facility] [address] CBC ERYTHROCYTE 13.5 11.5 - 05/28 Specimen Typ e: BLOOD SADAF DISTRIBUTIO 14.5 /2021 No comment e ntered. URIEL N WIDTH Ordering Provid er: [facility] [RATIO] BY Report Relea sed Date/Time: May 28, 2022 03:06 PM AUTOMATED Reporting Lab : [facility] COUNT [address] [place] [facility] [address] Performing Lab: [facility] [address] [place] [facility] [address] HEMOGLOBI HEMOGLOBIN 5.8 4.0 - 6.0 05/28 Specimen Type: BLOOD SADAF N A1C A1C/HEMOGLO /2021 No comment e ntered. RUIEL BIN.TOTAL Ordering Prov ider: [facility] IN BLOOD Report Release d Date/Time: May 28, 2022 03:06 PM Reporting Lab: [facility] [place] [address] Performing Lab: [facility] [address] [place] [address] LIPID CHOLESTEROL 116 <199 - 199 05/28 Specimen Type: PLASMA SADAF PANEL,NON [MASS/VOLUM /2021 No comment entered. URIEL -FASTING E] IN SERUM Ordering P rovider: [facility] OR PLASMA Report Releas ed Date/Time: May 28, 2022 03:06 PM Reporting Lab: [facility] [place] [address] Performing Lab: [facility] [address] [facility] [address] [place] [address] LIPID CHOLESTEROL 39 40 05/28 L Specimen Typ e: PLASMA SADAF PANEL,NON IN HDL No comment ent ered. URIEL -FASTING [MASS/VOLUM Ordering P rovider: [facility] E] IN SERUM Report Rele ased Date/Time: May 28, 2022 03:06 PM OR PLASMA Reporting Lab : [facility] [place] [address] Performing Lab: [facility] [address] [place] [address] LIPID CHOLESTEROL 64 <99 - 99 05/28 Specimen Ty pe: PLASMA SADAF PANEL,NON IN LDL No comment ent ered. URIEL -FASTING [MASS/VOLUM Ordering P rovider: [facility] E] IN SERUM Report Rele ased Date/Time: May 28, 2022 03:06 PM OR PLASMA Reporting Lab : [facility] BY [address] [place] [address] CALCULATION Performing Lab: [facility] [address] [place] [address] LIPID CHOLESTEROL 13 <29 - 29 05/28 Specimen Ty pe: PLASMA SADAF PANEL,NON IN VLDL /2021 No comment ent ered. URIEL -FASTING [MASS/VOLUM Ordering P rovider: [facility] E] IN SERUM Report Rele ased Date/Time: May 28, 2022 03:06 PM OR PLASMA Reporting Lab : [facility] BY [address] [place] [address] CALCULATION Performing Lab: [facility] [place] [address] LIPID CHOLESTEROL 77 <129 - 129 05/28 Specimen Type: PLASMA SADAF PANEL,NON NON HDL /2021 No comment ent shilpid. URIEL -FASTING [MASS/VOLUM Ordering P rovider: [facility] E] IN SERUM Report Rele ased Date/Time: May 28, 2022 03:06 PM OR PLASMA Reporting Lab : [facility] [place] [address] Performing Lab: [facility] [address] [place] [address] LIPID TRIGLYCERID 63 <149 - 149 05/28 Specimen Type: PLASMA SADAF PANEL,NON E /2021 No comment ent ered. URIEL -FASTING [MASS/VOLUM Ordering P rovider: [facility] E] IN SERUM Report Rele ased Date/Time: May 28, 2022 03:06 PM OR PLASMA Reporting Lab : [facility] [place] [address] Performing Lab: [facility] ONE [facility] [place] [address] ANTI-HEP HEPATITIS C NEGATIVE 05/28 Specimen T ype: SERUM SADAF C(EIA) VIRUS AB /2021 No comment erik TREVINO [[facility]] Ordering Pro vider: [facility] IN SERUM Report Release d Date/Time: May 28, 2022 03:06 PM Reporting Lab: [facility] [place] [address] Performing Lab: [facility] [address] [place] [facility] [address] Vital Signs Combined list of inpatient and outpatient Vital Signs from Department of Defense and Veterans Affairs, ranging from 12 months to all on record, depending upon the facility. Vital Sign Value Date Comments Source SYSTOLIC BLOOD PRESSURE 104 05/28/2022 14:06:53 [facility]AF [facility] DIASTOLIC BLOOD PRESSURE 67 05/28/2022 14:06:53 [facility] PULSE OXIMETRY 100% 05/28/2022 14:06:53 [facility] WEIGHT 240 05/28/2022 14:06:53 [facility] [place] BMI 36kg/m2 05/28/2022 14:06:53 [facility]AF L [facility] PAIN 0 05/28/2022 14:06:53 [facility]AF [facility] HEIGHT 69 05/28/2022 14:06:53 S[facility]AF [facility] TEMPERATURE 96.2 05/28/2022 14:06:53 [facility] PULSE 80 05/28/2022 14:06:53 [facility] RESPIRATION 14 05/28/2022 14:06:53 SADAF [facility] Encounters Combined list of: 1) Encounters from Department of Veterans Affairs facilities going back up to the last 18 months, not all [place] inpatient encounters are included; 2) Encounters from the Department of Defense facilities going back up to 280 months. Location Location Encounter Encounter Reason Attending ADM DC Stat us Disposition Source Details Type Number For Provider Date Date Visit Outpatient [id number] KAYE NIETO 01/05 [place] Encounter [id number] HIA L /2020 [facility] Outpatient [id number] 01/25 [place] Encounter [id number] /2020 [facility] Outpatient [id number] Karen JENSEN 04/20 [place] Encounter [id number] ERRY /2020 [facility] Outpatient [id number] 04/21 [place] En[place] [id number] /2020 [facility] Outpatient [id number] 08/06 [place] Encounter [id number] /2020 [facility] Outpatient [id number] 09/03 [place] Encounter [id number] /2020 [facility] OFFICE O/P 54402-3.61 Diagnos GRANDIA,CO 05/28 SADAF [facility] [id number] is: NNIE M /2021 URIEL 60-74 MIN 91 ICD-10- CBOC CM C72.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
with Provide r Comment s: Ependym alfonso of spinal cord (SCT [id number]) Outpatient [id number] 05/30 [place] Encounter [id number] [facility] Outpatient [id number] 06/01 [place] Encounter [id number] [facility] Outpatient [id number] 06/04 [place] [id number] [facility] [id number] 06/05 [place] Encounter [id number] /2021 [facility] SELF CARE [id number] Diagnos NADEEN MITCHELL 06/07 [place] MNGMENT [id number] is: A J /2021 [facility] ICD-10- [facility] CM Z73.6 Limitat ion of activit ies due to disabil ity<br/ >with Provide r Comment s: Limitat ion of activit ies due to disabil ity Outpatient [id number] 06/07 [place] Encounter [id number] /2021 [facility] OT EVAL [id number] Diagnos SAVANNA MCKINLEY 06/07 [place] HIGH [id number] is: INE WILDA /2021 OLIS V A COMPLEX 61 ICD-10- [facility] MIN CM R54 Age-rel ated physica l debilit y
w ith Provide r Comment s: Age-Rel ated Physica l Debilit y Outpatient [id number] 08/ [place] Encounter [id number] /2021 [facility] Outpatient [id number] 08/ [place] Encounter [id number] /2021 [facility] Outpatient [id number] 08/05 [place] Encounter [id number] /2021 [facility] Outpatient [id number] 0815 [place] Encounter [id number] /2021 [facility] Outpatient [id number] 17 [place] Encounter [id number] /2021 [facility] Social History Combined list of available smoking, tobacco, and other social history from Department of Defense and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 Social History Type Response Date Comment Source Tobacco smoking status VA-TOBACCO NEVER USED 05/28/2022 SADAF TREVINO [facility] This section is an [facility] empty social history section. Plan of Care List of future care activities from Department of 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 Additional future care activities may be listed in the Assessment and Plan section. Date/Time Care Activity Care Activity Detail Facility 07/11/2022 AMBULATORY - REHAB MEDICINE AMBULATORY - REHAB [facility]
--- OUTSIDE RECORDS SUMMARY | 2022-07-04 15:21 | XMS_ITS | Encounter Summary ---
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
== END 2022-07-04 15:00 | disposition home or self-care (01) ==
LOC: WOUND 15:00
PROVIDERS: Visit Provider Surgery
DX: L89.42 Pressure ulcer of contiguous site of back, buttock and hip, stage 2 (principal); G82.21 Paraplegia, complete; Z79.01 Long term (current) use of anticoagulants
CPT/HCPCS: 99212

== ENCOUNTER 2023-09-05 12:53 | Outpatient (CLI) | payer MEDICARE, OTHER, SELFPAY | END 2023-09-05 12:54 | disposition home or self-care (01) | LOC: WOUND 12:54 | PROVIDERS: PCP Family Medicine; Visit Provider Nurse Practitioner Family | DX: L89.893 Pressure ulcer of other site, stage 3 (principal); N39.46 Mixed incontinence; Z99.3 Dependence on wheelchair | CPT/HCPCS: 11042; 99213 ==

== ENCOUNTER 2023-09-10 13:52 | Outpatient (CLI) | payer MEDICARE, OTHER, SELFPAY | END 2023-09-10 13:53 | disposition home or self-care (01) | LOC: WOUND 13:53 | PROVIDERS: PCP Family Medicine; Visit Provider Nurse Practitioner Family | DX: L89.323 Pressure ulcer of left buttock, stage 3 (principal); N39.46 Mixed incontinence; Z99.3 Dependence on wheelchair | CPT/HCPCS: 11042 ==

== ENCOUNTER 2023-09-19 10:22 | Outpatient (CLI) | payer MEDICARE, OTHER, SELFPAY | END 2023-09-19 10:23 | disposition home or self-care (01) | LOC: WOUND 10:23 | PROVIDERS: PCP Family Medicine; Visit Provider Nurse Practitioner Family | DX: L89.323 Pressure ulcer of left buttock, stage 3 (principal); N39.46 Mixed incontinence; Z99.3 Dependence on wheelchair | CPT/HCPCS: 11042 ==

== ENCOUNTER 2023-09-24 13:54 | Outpatient (CLI) | payer MEDICARE, OTHER, SELFPAY | END 2023-09-24 13:55 | disposition home or self-care (01) | LOC: WOUND 13:54 | PROVIDERS: PCP Family Medicine; Visit Provider Family Medicine | DX: L89.324 Pressure ulcer of left buttock, stage 4 (principal); N39.46 Mixed incontinence; Z99.3 Dependence on wheelchair | CPT/HCPCS: 11042 ==

== ENCOUNTER 2023-10-01 10:46 | Outpatient (CLI) | payer MEDICARE, OTHER, SELFPAY | END 2023-10-01 10:47 | disposition home or self-care (01) | LOC: WOUND 10:46 | PROVIDERS: PCP Family Medicine; Visit Provider Nurse Practitioner Family | DX: L89.324 Pressure ulcer of left buttock, stage 4 (principal); Z99.3 Dependence on wheelchair | CPT/HCPCS: 11042 ==

== ENCOUNTER 2023-10-08 13:47 | Outpatient (CLI) | payer MEDICARE, OTHER, SELFPAY | END 2023-10-08 13:48 | disposition home or self-care (01) | LOC: WOUND 13:47 | PROVIDERS: PCP Family Medicine; Visit Provider Nurse Practitioner Family | DX: L89.324 Pressure ulcer of left buttock, stage 4 (principal); N39.46 Mixed incontinence; Z99.3 Dependence on wheelchair | CPT/HCPCS: 11042 ==

== ENCOUNTER 2023-10-15 12:53 | Outpatient (CLI) | payer MEDICARE, OTHER, SELFPAY | END 2023-10-15 12:54 | disposition home or self-care (01) | LOC: WOUND 12:53 | PROVIDERS: PCP Family Medicine; Visit Provider Nurse Practitioner Family | DX: L89.324 Pressure ulcer of left buttock, stage 4 (principal); G82.50 Quadriplegia, unspecified; Z93.3 Colostomy status; Z99.3 Dependence on wheelchair; E11.9 Type 2 diabetes mellitus without complications | CPT/HCPCS: 11043; 72170; 87070; 87186; 99212 ==

== ENCOUNTER 2023-10-22 13:50 | Outpatient (CLI) | payer MEDICARE, OTHER, SELFPAY | END 2023-10-22 13:51 | disposition home or self-care (01) | PROVIDERS: PCP Family Medicine; Visit Provider Nurse Practitioner Family | DX: E11.622 Type 2 diabetes mellitus with other skin ulcer (principal); L89.324 Pressure ulcer of left buttock, stage 4; L03.317 Cellulitis of buttock; G82.50 Quadriplegia, unspecified | CPT/HCPCS: 11043; 96372; 99212; J0696 ==

== ENCOUNTER 2023-10-23 15:18 | Outpatient (CLI) | payer MEDICARE, OTHER, SELFPAY ==
[2023-10-23 15:52] LABS: Creatinine* 0.6 mg/dL (0.5-1.5); Estimated Glomerular Filt Rate 99 ml/min
--- NOTE | 2023-10-23 16:00 | CRLHL7_ITS ---
For Patients: As a result of the Century Cures Act, medical imaging exams and procedure reports are released immediately into your electronic medical record. You may view this report before your referring provider. If you have questions, please contact your health care provider. Indication: NON HEALING ULCER Technique: CT Pelvis W/108CC Isovue-370 Please note that all CT scans at this facility use dose modulation, iterative reconstruction, and/or weight-based dosing when appropriate to reduce radiation dose to as low as reasonably achievable. Comparison: X rays 10.15.23 Findings: IVC filter is present. The distal IVC is diminutive. Multiple collateral veins are present in the pelvis and inguinal region. Postop changes of partial colectomy with left lower quadrant ostomy. No bowel obstruction. Atherosclerotic changes. Renal cysts. There is a left perineal abscess with packing material extending to the posterior left iliac bone. Associated cortical destruction is present within the posterior left iliac bone at the left inferior pubic ramus. No pathologic fracture. Ill-defined soft tissue density above the greater trochanters bilaterally. No vertebral body compression fracture. Impression: Left peroneal soft tissue ulcer extending to the left posterior iliac bone with associated osteomyelitis. Please note that all CT scans at this facility use dose modulation, iterative reconstruction, and/or weight-based dosing when appropriate to reduce radiation dose to as low as reasonably achievable. Dictated by Julien Sofia MD @ 10/24/2023 10:43:00 AM (Electronically Signed)
== END 2023-10-23 15:19 | disposition home or self-care (01) ==
LOC: CT 15:18
PROVIDERS: PCP Family Medicine; Visit Provider Nurse Practitioner Family
DX: L89.324 Pressure ulcer of left buttock, stage 4 (principal); M86.8X8 Other osteomyelitis, other site
CPT/HCPCS: 36415; 72193; 82565; Q9967

== ENCOUNTER 2023-10-29 12:58 | Outpatient (CLI) | payer MEDICARE, OTHER, SELFPAY | END 2023-10-29 12:59 | disposition home or self-care (01) | LOC: WOUND 12:58 | PROVIDERS: PCP Family Medicine; Visit Provider Nurse Practitioner Family | DX: E11.622 Type 2 diabetes mellitus with other skin ulcer (principal); L89.324 Pressure ulcer of left buttock, stage 4; L03.317 Cellulitis of buttock; M86.18 Other acute osteomyelitis, other site; G82.50 Quadriplegia, unspecified; B96.1 Klebsiella pneumoniae [K. pneumoniae] as the cause of diseases classified elsewhere; B95.2 Enterococcus as the cause of diseases classified elsewhere | CPT/HCPCS: 11043; 99214; G0463 ==

== ENCOUNTER 2023-10-29 16:32 | Inpatient (IN) | payer MEDICARE, OTHER, SELFPAY ==
[2023-10-29 16:40] VITALS: BP 126/70; PULSE 90; RESP 18; TEMP 36.8; O2SAT 98; BMI 33.3
[2023-10-29 17:54] VITALS: RESP 18; O2SAT 98
--- NOTE | 2023-10-29 18:03 | P.IMHP_ITS ---
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 Patient is seen with at bedside. Together they provide a history. Patient has had intermittent fevers, 99-101, over the past week. He is routinely seen in the Wound Care Clinic and was started on outpatient IV ceftriaxone 2g daily on 10/22. A CT of the pelvis was obtained on 10/23 showing left perineal abscess with associated cortical destruction of the left inferior pubic ramus. Of note, a culture of the buttock wound obtained on 10/15 grew Klebsiella pneumoniae pansensitive except to ampicillin. During a visit again today at the Wound Care Clinic, provider noticed foul odor, change in wound, concerned that patient was failing outpatient IV antibiotic therapy and in need of surgical intervention. Patient has had headaches with achiness every evening with fevers. Resolve with Tylenol. Denies dizziness. Denies nausea or vomiting. Appetite unchanged. Reports stools unchanged in ostomy. Reports no change in urination with chronic suprapubic catheter. Has otherwise been feeling well. Wound Care reports patient to be vitally stable during visit today. Nonsmoker. Denies alcohol use. No known history of bleeding disorders. Denies previous complications with anesthesia. Review of Systems Narrative: REVIEW OF SYSTEMS: Complete review of systems performed and negative unless otherwise stated in HPI or below. [facility] Medical History (Updated 10/29/23 @ 19:09 by Regina Goodson PA-C) Necrotizing fasciitis ?M72.6 - Necrotizing fasciitis (ICD-10) Meningitis ?G03.9 - Meningitis, unspecified (ICD-10) Paraplegia ?G82.20 - Paraplegia, unspecified (ICD-10) Ependymoma ?C71.9 - Malignant neoplasm of brain, unspecified (ICD-10) Dementia ?F03.90 - Unspecified dementia, unspecified severity, without behavioral disturbance, psychotic disturbance, mood disturbance, and anxiety (ICD-10) History of DVT (deep vein thrombosis) ?Z86.718 - Personal history of other venous thrombosis and embolism (ICD-10) COPD (chronic obstructive pulmonary disease) ?J44.9 - Chronic obstructive pulmonary disease, unspecified (ICD-10) Osteoporosis ?M81.0 - Age-related osteoporosis without current pathological fracture (ICD- 10) Lymphedema ?I89.0 - Lymphedema, not elsewhere classified (ICD-10) Anemia ?D64.9 - Anemia, unspecified (ICD-10) Chronic pain syndrome ?G89.4 - Chronic pain syndrome (ICD-10) Hyperlipidemia ?E78.5 - Hyperlipidemia, unspecified (ICD-10) Hypertension ?I10 - Essential (primary) hypertension (ICD-10) Diabetes mellitus type 2 in nonobese ?E11.9 - Type 2 diabetes mellitus without complications (ICD-10) Meds Home Medications and Allergies Home Medications Medication Instructions Recorded Confirmed Type acetaminophen 500 mg tablet 1,000 mg PO TID 10/29/23 10/29/23 History amlodipine 5 mg tablet 5 mg PO DAILY 10/29/23 10/29/23 History aripiprazole 2 mg tablet 2 mg PO BID 10/29/23 10/29/23 History ascorbic acid (vitamin C) 500 mg 1 g PO BIDWM 10/29/23 10/29/23 History tablet atorvastatin 40 mg tablet 40 mg PO HS 10/29/23 10/29/23 History baclofen 20 mg tablet 40 mg PO TID 10/29/23 10/29/23 History bupropion HCl 150 mg tablet,12 hr 150 mg PO BID 10/29/23 10/29/23 History sustained-release cholecalciferol (vitamin D3) 25 25 mcg PO DAILY 10/29/23 10/29/23 History mcg (1,000 unit) tablet donepezil 5 mg tablet 5 mg PO HS 10/29/23 10/29/23 History duloxetine 60 mg capsule,delayed 60 mg PO BID 10/29/23 10/29/23 History release famotidine 20 mg tablet 20 mg PO DAILY 10/29/23 10/29/23 History furosemide 40 mg tablet 40 mg PO DAILY 10/29/23 10/29/23 History gabapentin 400 mg capsule 400 mg PO TID 10/29/23 10/29/23 History lorazepam 0.5 mg tablet 0.5 mg PO BID 10/29/23 10/29/23 History lorazepam 1 mg tablet (Ativan) 1 mg PO HS 10/29/23 10/29/23 History magnesium hydroxide 400 mg/5 mL 15 ml PO DAILY PRN 10/29/23 10/29/23 History oral suspension (Milk of Magnesia) esexzhov-nw-bsuea 300 mcg-K 60 1 tab PO DAILY 10/29/23 10/29/23 History mcg-lycop 600 mcg-lutein 300 mcg tablet (A Thru Z Select) oxycodone 10 mg tablet 10 mg PO Q6H 10/29/23 10/29/23 History potassium chloride 10 mEq 20 meq PO DAILY 10/29/23 10/29/23 History tablet,extended release(part/cryst) warfarin 5 mg tablet 5 mg PO .Saturday10/29/23 10/29/23 History warfarin 7.5 mg tablet (Jantoven) 7.5 mg PO SUMOTUWEFRSA 10/29/23 10/29/23 History Allergies Allergy/AdvReac Type Severity Reaction Status Date / Time metolazone Allergy Hives Verified 10/29/23 17:22 Sulfa (Sulfonamide Allergy Rash Verified 10/29/23 17:21 Antibiotics) levofloxacin AdvReac Confusion Verified 10/29/23 17:20 Exam Narrative: Exam Narrative: PHYSICAL EXAM General: Pleasant, conversant, NAD HEENT: Normocephalic, atraumatic, sclera white, EOMI, oral mucosa moist Cardiovascular: RRR, S1S2. Pulmonary: CTA bilaterally without rhonchi, rales, expiratory wheezes. No dyspnea Abdominal: Soft, nondistended, NTTP Neurological: Alert, mildly confused, easily redirected, cranial nerves intact, no focal findings Extremities: Bilateral lower extremity lymphedema, +3 pitting, compression stockings in place Skin: Warm, dry. Wound examined by General Surgery. Photo reviewed Const: Vital Signs, click to edit/add: Vital Signs - 24 hr 10/29/23 16:40 Temperature 98.3 F Pulse Rate [Pulse Oximeter] 90 Respiratory Rate 18 Blood Pressure [Le ft Arm] 126/70 Pulse Oximetry 98 Oxygen Delivery Me thod Room Air Hospitalist - H&P: Result Labs Labs: Admission labs reviewed. Wound culture 10/15/[address] scan - pelvis: Attestation: I have reviewed the pertinent imaging results. Radiologist's impression: 10/23/23: CT Pelvis W/108CC Isovue-370 Please note that all CT scans at this facility use dose modulation, iterative reconstruction, and/or weight-based dosing when appropriate to reduce radiation dose to as low as reasonably achievable. Comparison: X rays 10.15.23 Findings: IVC filter is present. The distal IVC is diminutive. Multiple collateral veins are present in the pelvis and inguinal region. Postop changes of partial colectomy with left lower quadrant ostomy. No bowel obstruction. Atherosclerotic changes. Renal cysts. There is a left perineal abscess with packing material extending to the posterior left iliac bone. Associated cortical destruction is present within the posterior left iliac bone at the left inferior pubic ramus. No pathologic fracture. Ill-defined soft tissue density above the greater trochanters bilaterally. No vertebral body compression fracture. Impression: Left peroneal soft tissue ulcer extending to the left posterior iliac bone with associated osteomyelitis. Assessment and Plan Assessment and plan (1) Pressure ulcer of left buttock, stage 4: Problem comment: -acute on chronic worsening, failed outpatient IV antibiotic therapy with worsening signs of infection -CT showing perineal abscess with associated cortical destruction at the left inferior pubic ramus -mild leukocytosis with left shift, reported fevers, blood culture x2, lactate, procalcitonin ordered -General Surgery, Dr. Fortune, consulted. Recommending starting Zosyn and Vancomycin. Wound culture from 10/15 reviewed. Remote h/o MRSA. Plan for surgical intervention tomorrow, 10/30. NPO after midnight. IVF maintenance. Hold Coumadin. INR 2.73, will treat with IV vitamin K -frequent position changes for offloading. Mattress unavailable Status: Chronic (2) Diabetes mellitus type 2 in nonobese: Problem comment: -diet controlled, no longer insulin-dependent -b.i.d. glucose checks Status: Chronic (3) Hyperlipidemia: Problem comment: -continue statin Status: Chronic (4) Hypertension: Problem comment: -continue amlodipine, reports historically blood pressures are higher in the morning and in the evening Status: Chronic (5) Chronic pain syndrome: Problem comment: -continue scheduled home medications to avoid withdrawal -monitor for sedation, delirium while hospitalized -has a spinal cord stimulator in place Status: Chronic (6) Lymphedema: Problem comment: -bilateral lower extremity wraps, continue Lasix Status: Chronic (7) Paraplegia: Problem comment: -since 2009, outcome from multiple surgeries and 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 SCDs. Status: Chronic (9) Dementia: Problem comment: -monitor for delirium Status: Chronic (10) COPD (chronic obstructive pulmonary disease): Problem comment: -stable, encourage postoperative pulmonary hygiene, incentive spirometry Status: Chronic (11) Anemia: Problem comment: -of chronic disease -hgb 11.0, continue to monitor Status: Chronic Plan CODE: Full as discussed with patient VTE PPX: SCDs, Coumadin held for planned surgical procedure 10/30 Disposition: Observation, utilization to review
[2023-10-29 18:24] LABS: Basophils Percent Auto 0.1 % (0.0-3.0); Eosinophils Percent Auto 0.3 % (0.0-7.0); Hematocrit 33.4 % (37.0-53.0); Immature Granulocytes Pct Auto 0.7 %; Lymphocytes Percent Auto 7.5 % (20-44); Mean Corpuscular HGB Conc 33 gm/dL (32-36); Mean Corpuscular Hemoglobin 30 pg (26-34); Mean Corpuscular Volume 90 fL (80-100); Monocytes Percent Auto 9.2 % (0.0-11.0); Neutrophils Percent Auto 82.2 % (42.0-72.0); Platelet Count* 300 K/uL (140-440); RDW Coefficient of Variation % 13.4 % (11.5-15.5); Red Blood Count 3.73 m/uL (4.30-5.90); White Blood Count* 13.78 K/uL (4.50-11.00)
[2023-10-29 18:25] LABS: Slide Review Reflex No
[2023-10-29] MEDS: 0.9 % SODIUM CHLORIDE 1000 ml 1,000 ML 75 ML IV (18:39)
[2023-10-29 18:42] LABS: Albumin* 3.7 g/dL (3.3-5.0); Chloride* 94 mmol/L (96-114); Potassium* 4.2 mmol/L (3.6-5.1); Sodium* 133 mmol/L (135-149)
[2023-10-29] MEDS: OXYCODONE 5 MG TABLET 10 MG PO (18:43)
[2023-10-29 18:44] LABS: Creatinine* 0.6 mg/dL (0.5-1.5); Est. Creatinine Clearance* 61.86; Estimated Glomerular Filt Rate 99 ml/min; INR 2.73 (0.91-1.10)
[2023-10-29 18:45] LABS: Alanine Aminotransferase* 63 U/L (4-50); Alkaline Phosphatase* 130 U/L (40-150); Anion Gap 9 mEq/L (7-15); Aspartate Amino Transferase* 44 U/L (12-35); Bilirubin Total* 0.4 mg/dL (0.1-1.5); Blood Urea Nitrogen* 14 mg/dL (7-30); Calcium* 8.6 mg/dL (8.4-10.6); Carbon Dioxide* 30 mmol/L (20-32); Glucose* 164 mg/dL (60-115); Total Protein* 7.1 g/dL (6.0-8.3)
--- NOTE | 2023-10-29 18:49 | P.GSCN_ITS ---
History of Present Illness Consult details Date Seen: 10/29/23 Consult date: 10/29/23 Narrative: The patient is a 78-year-old male with a history of paraplegia after surgical resection of ependymoma and pressure ulcers who was admitted today with worsening signs of infection and concern for osteomyelitis and need for more aggressive wound debridement. He has a history of 2 prior ulcers, on the right in the past he has had a soft tissue flap. He previously had some minor skin breakdown and was seen at the [facility]. Fortunately this healed. In August he developed this most recent wound on the left. His believes it is because his cushion was def lating in the did not realize it. The wound started and they were treating it with Mepilex, however it progressed to be full-thickness by the time he was seen in wound clinic. His states that she in his home health aide have been doing wound cares. The drainage has been very significant for the past 3 weeks. This has necessitated changing the wound every day. They were previously using Aquacel. Last week an MRI was obtained. This showed that the wound was down to the ischial tuberosity on the left. The wound was cultured and grew Klebsiella. He was started on IV antibiotics. He has been doing this as an outpatient in [place]. He does have a PICC line. He has been on Rocephin. His states that over the weekend he has had persistent fevers which have occurred regularly in the mornings. The last 2 days he has not had any fevers. He has had more swelling of his scrotum and lower extremities as well. When he was seen in wound clinic today they noted more necrotic tissue and a foul odor coming from the wound. There was significant purulent drainage as well. He does have a diverting stoma and a suprapubic catheter. He is on anticoagulation for history of DVT. [facility] Medical History (Updated 10/29/23 @ 18:58 by Regina Goodson PA-C) Necrotizing fasciitis ?M72.6 - Necrotizing fasciitis (ICD-10) Meningitis ?G03.9 - Meningitis, unspecified (ICD-10) Paraplegia ?G82.20 - Paraplegia, unspecified (ICD-10) Ependymoma ?C71.9 - Malignant neoplasm of brain, unspecified (ICD-10) Dementia ?F03.90 - Unspecified dementia, unspecified severity, without behavioral disturbance, psychotic disturbance, mood disturbance, and anxiety (ICD-10) History of DVT (deep vein thrombosis) ?Z86.718 - Personal history of other venous thrombosis and embolism (ICD-10) COPD (chronic obstructive pulmonary disease) ?J44.9 - Chronic obstructive pulmonary disease, unspecified (ICD-10) Osteoporosis ?M81.0 - Age-related osteoporosis without current pathological fracture (ICD- 10) Lymphedema ?I89.0 - Lymphedema, not elsewhere classified (ICD-10) Anemia ?D64.9 - Anemia, unspecified (ICD-10) Chronic pain syndrome ?G89.4 - Chronic pain syndrome (ICD-10) Hyperlipidemia ?E78.5 - Hyperlipidemia, unspecified (ICD-10) Hypertension ?I10 - Essential (primary) hypertension (ICD-10) Diabetes mellitus type 2 in nonobese ?E11.9 - Type 2 diabetes mellitus without complications (ICD-10) Meds Home Medications and Allergies Home Medications Medication Instructions Recorded Confirmed Type acetaminophen 500 mg tablet 1,000 mg PO TID 10/29/23 10/29/23 History amlodipine 5 mg tablet 5 mg PO DAILY 10/29/23 10/29/23 History aripiprazole 2 mg tablet 2 mg PO BID 10/29/23 10/29/23 History ascorbic acid (vitamin C) 500 mg 1 g PO BIDWM 10/29/23 10/29/23 History tablet atorvastatin 40 mg tablet 40 mg PO HS 10/29/23 10/29/23 History baclofen 20 mg tablet 40 mg PO TID 10/29/23 10/29/23 History bupropion HCl 150 mg tablet,12 hr 150 mg PO BID 10/29/23 10/29/23 History sustained-release cholecalciferol (vitamin D3) 25 25 mcg PO DAILY 10/29/23 10/29/23 History mcg (1,000 unit) tablet donepezil 5 mg tablet 5 mg PO HS 10/29/23 10/29/23 History duloxetine 60 mg capsule,delayed 60 mg PO BID 10/29/23 10/29/23 History release famotidine 20 mg tablet 20 mg PO DAILY 10/29/23 10/29/23 History furosemide 40 mg tablet 40 mg PO DAILY 10/29/23 10/29/23 History gabapentin 400 mg capsule 400 mg PO TID 10/29/23 10/29/23 History lorazepam 0.5 mg tablet 0.5 mg PO BID 10/29/23 10/29/23 History lorazepam 1 mg tablet (Ativan) 1 mg PO HS 10/29/23 10/29/23 History magnesium hydroxide 400 mg/5 mL 15 ml PO DAILY PRN 10/29/23 10/29/23 History oral suspension (Milk of Magnesia) ehsuzfkh-ye-kjlvc 300 mcg-K 60 1 tab PO DAILY 10/29/23 10/29/23 History mcg-lycop 600 mcg-lutein 300 mcg tablet (A Thru Z Select) oxycodone 10 mg tablet 10 mg PO Q6H 10/29/23 10/29/23 History potassium chloride 10 mEq 20 meq PO DAILY 10/29/23 10/29/23 History tablet,extended release(part/cryst) warfarin 5 mg tablet 5 mg PO .Saturday10/29/23 10/29/23 History warfarin 7.5 mg tablet (Jantoven) 7.5 mg PO SUMOTUWEFRSA 10/29/23 10/29/23 History Allergies Allergy/AdvReac Type Severity Reaction Status Date / Time metolazone Allergy Hives Verified 10/29/23 17:22 Sulfa (Sulfonamide Allergy Rash Verified 10/29/23 17:21 Antibiotics) levofloxacin AdvReac Confusion Verified 10/29/23 17:20 Exam Narrative: Exam Narrative: General: No acute distress Respiratory: Breathing nonlabored on room air CV: Regular. Abdomen: Protuberant. Stoma is in place. Skin: On his right buttock he has a 3 x 3 cm wound. There is faint surrounding erythema. The packing is removed. There is dry necrosis of the subcutaneous tissue just inside the wound at the medial aspect. The wound is probed. There is no drainage noted. The ischial tuberosity is palpable in the wound. The wound does track anteriorly and posteriorly. There is no drainage at this time. There is a foul odor from the wound. No crepitus noted. Scrotum and extremities are edematous. Const: Vital Signs, click to edit/add: Vital Signs - 24 hr 10/29/23 16:40 Temperature 98.3 F Pulse Rate [Pulse Oximeter] 90 Respiratory Rate 18 Blood Pressure [Le ft Arm] 126/70 Pulse Oximetry 98 Oxygen Delivery Me thod Room Air Results Labs Labs: Abnormal lab results 10/29/23 Range/Units 18:18 WBC 13.78 H (4.50-11.00) K/uL RBC 3.73 L (4.30-5.90) m/uL Hgb 11.0 L (13.5-17.5) gm/dL Hct 33.4 L (37.0-53.0) % Neut % (Auto) 82.2 H (42.0-72.0) % Lymph % (Auto) 7.5 L (20-44) % Neut # (Auto) 11.30 H (1.7-7.0) K/uL [place] # (Auto) 1.30 H (0.00-0.90) K/UL Culture of the wound from 10/15/2023 shows Klebsiella which is resistant to ampicillin but otherwise sensitive to other antibiotics. Imaging Abdomen CT scan report/results: report reviewed and image reviewed Additional studies: Images from 10/23 reviewed. There is an ulcer on the left buttock extending to the ischium. No significant subcutaneous gas. There does not sppear to be any undrained collections. Assessment and Plan Assessment and plan (1) History of DVT (deep vein thrombosis): Problem comment: -on chronic anticoagulation. 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 glucose checks Status: Chronic (5) Pressure ulcer of left buttock, stage 4: Problem comment: -acute on chronic worsening, failed outpatient IV antibiotic therapy with wor sening signs of infection -CT showing perineal abscess with associated cortical destruction at the left inferior pubic ramus -mild leukocytosis with left shift, reported fevers, blood culture x2, lactate, procalcitonin ordered -General Surgery, Dr. Fortune, consulted. Recommending starting Zosyn and Vancomycin. Wound culture reviewed. Previous h/o MRSA. Plan for surgical intervention tomorrow, 10/30. NPO after midnight. IVF maintenance. Hold Coumadin. INR pending, may need to treat with IV vitamin K. -frequent position changes for offloading. Mattress unavailable Status: Chronic Plan The patient is a 78-year-old male with paraplegia and a left buttock ulcer with exposed bone. The wound appears to be in need of further debridement. He does have some cellulitis surrounding which is mild. Given his fevers and the bone exposure, there was concern for osteomyelitis. No sign of necrotizing infection. -recommend INR reversal with anticipation of wound debridement in the morning in the OR. Hold Coumadin -broad antibiotics. Patient with history of MRSA. Reasonable to add Zosyn. -continue with offloading to prevent further skin breakdown. -NPO at midnight for anticipation of OR. I discussed with the patient and his that since he is insensate general anesthesia is not necessary, however light sedation may help him be more comfortable in the OR. Will discuss with anesthesia in the morning. -will revisit wound cares postop. Anticipate that once the acute infection has resolved, he would be a good candidate for a wound VAC. -plan on OR tomorrow at 1st availability. -discussed the procedure with the patient and his . His signed informed consent.
[2023-10-29 19:00] VITALS: BP 127/74; PULSE 99; RESP 18; TEMP 36.9; O2SAT 97
[2023-10-29 19:15] LABS: Lactate* 1.1 mmol/L (0.5-1.9)
[2023-10-29 19:33] LABS: Procalcitonin* 0.18 ng/mL (<0.50)
--- NOTE | 2023-10-29 19:54 | PC.NURSE ---
Pt arrived to floor from wound care clinic around 1640. present with Pt. Pt alert and oriented. Pt uses electric wheel chair. Pt moved to bed with ceiling lift. Pt repositioned Q2 due to wound. Pt had no complaints of pain during shift (1639-19). Dressing removed by surgeon and replaced at beside at roughly 1830. Pt to have Surgery tomorrow tentatively at 1230.
[2023-10-29] MEDS: PHYTONADIONE (VIT K1) 5 MG in 0.9 % SODIUM CHLORIDE 50 ml 50 ML 100 MG IVPB (20:13)
[2023-10-29] MEDS: DULOXETINE 30 MG CAPSULE DR 60 MG PO (20:15)
[2023-10-29] MEDS: DONEPEZIL 5 MG TABLET PO (20:15)
[2023-10-29] MEDS: BACLOFEN 10 MG TABLET 40 MG PO (20:16)
[2023-10-29] MEDS: GABAPENTIN 100 MG CAPSULE 400 MG PO (20:16)
[2023-10-29] MEDS: buPROPion HCL SR 150 MG TAB PO (20:16)
[2023-10-29] MEDS: ARIPiprazole 10 MG TABLET 2 MG PO (20:16)
[2023-10-29] MEDS: LORazepam 1 MG TABLET PO (20:17)
[2023-10-29] MEDS: ATORVASTATIN CALCIUM 40 MG TABLET PO (20:17)
[2023-10-29] MEDS: PIPERACILLIN/TAZOBACTAM 3.375 GM in 0.9 % SODIUM CHLORIDE Mini-bag 100 ML IVPB (20:54)
[2023-10-29 23:00] VITALS: BP 114/74; PULSE 94; PULSE 97; PULSE 99; RESP 18; TEMP 37.5; O2SAT 95
[2023-10-30] VITALS (17 sets, daily range): BP systolic 101–123; BP diastolic 58–70; PULSE 81–95; RESP 14–18; TEMP 36.4–38.1; O2SAT 92–95; BMI 34.4
[2023-10-30] MEDS: OXYCODONE 5 MG TABLET 10 MG PO ×5 (00:10→23:23)
[2023-10-30] MEDS: PIPERACILLIN/TAZOBACTAM 3.375 GM in 0.9 % SODIUM CHLORIDE Mini-bag 100 ML IVPB ×3 (02:26→19:39)
[2023-10-30] MEDS: ACETAMINOPHEN 325 MG TABLET PO ×2 (02:38→23:24)
--- NOTE | 2023-10-30 06:06 | PC.NURSE ---
Pt A&O and VSS overnight, disoriented to place upon wakening but easily reoriented. Fever T-max 100.5; PRN Tylenol given @ 0235 and temp recheck: 99.6. Pt is baseline paraplegic so repositioned q2H and as pt requests. Suprapubic catheter intact draining clear, yellow urine. Pt ostomy bag C/D/I with soft but formed stool output. RUE PICC C/D/I patent infusing NS @ 75 mL/hr. Pt NPO @ 0000 for scheduled wound debridement @ 1200. Left buttock stage 4 ulcer dressing C/D/I and changed by Dr. Fortune upon arrival to the unit. Pt has no c/o pain and is receiving scheduled oxycodone. IV abx include Zosyn q6H and Vancomycin q12H. Pt INR 2.73 so he received 5mg IV Vit K for reversal prior to surgery. Pt upper & lower dentures are in cup on sink. On TELE showing ST rate 90s ? low 100s. ?
[2023-10-30 06:13] LABS: Hematocrit 29.5 % (37.0-53.0); Hemoglobin* 9.7 gm/dL (13.5-17.5); Mean Corpuscular HGB Conc 33 gm/dL (32-36); Mean Corpuscular Hemoglobin 30 pg (26-34); Mean Corpuscular Volume 90 fL (80-100); Platelet Count* 278 K/uL (140-440); Red Blood Count 3.29 m/uL (4.30-5.90); White Blood Count* 11.14 K/uL (4.50-11.00)
[2023-10-30 06:21] LABS: Chloride* 96 mmol/L (96-114); Potassium* 3.8 mmol/L (3.6-5.1); Sodium* 132 mmol/L (135-149)
[2023-10-30 06:24] LABS: Anion Gap 10 mEq/L (7-15); Blood Urea Nitrogen* 11 mg/dL (7-30); Carbon Dioxide* 26 mmol/L (20-32); Creatinine* 0.6 mg/dL (0.5-1.5); Est. Creatinine Clearance* 61.86; Estimated Glomerular Filt Rate 99 ml/min
[2023-10-30 06:25] LABS: Calcium* 8.3 mg/dL (8.4-10.6); Glucose* 92 mg/dL (60-115); Magnesium* 2.1 mg/dL (1.5-2.6)
[2023-10-30 06:31] LABS: Slide Review Reflex No
[2023-10-30 06:36] LABS: INR 1.64 (0.91-1.10); Prothrombin Time 20.6 Seconds
[2023-10-30] MEDS: FUROSEMIDE 40 MG TABLET PO (07:55)
[2023-10-30] MEDS: POTASSIUM CHLORIDE 10 MEQ CAPSULE ER 20 MEQ PO (07:55)
[2023-10-30] MEDS: DULOXETINE 30 MG CAPSULE DR 60 MG PO ×2 (08:39→20:16)
[2023-10-30] MEDS: AMLODIPINE 5 MG TABLET PO (08:39)
[2023-10-30] MEDS: buPROPion HCL SR 150 MG TAB PO ×2 (08:39→20:14)
[2023-10-30] MEDS: GABAPENTIN 100 MG CAPSULE 400 MG PO ×2 (08:40→20:16)
[2023-10-30] MEDS: PHYTONADIONE (VIT K1) 5 MG in 0.9 % SODIUM CHLORIDE 50 ml 50 ML 100 MG IVPB (08:40)
[2023-10-30] MEDS: MAGNESIUM HYDROXIDE 30 ML ORAL.SUSP 15 ML PO (08:40)
[2023-10-30] MEDS: FAMOTIDINE 20 MG TABLET PO (08:40)
[2023-10-30] MEDS: BACLOFEN 10 MG TABLET 40 MG PO ×2 (08:40→20:15)
[2023-10-30] MEDS: ARIPiprazole 10 MG TABLET 2 MG PO (08:45)
--- NOTE | 2023-10-30 09:52 | NUTR.NU ---
Addendum entered and electronically signed by Raquel Dotson RD 10/30/23 10:10: Pressure Injury Nutrition Therapy Handout from [facility] will also be provided. Original Note: Patient's asked for written diet recommendations regarding wound healing. DIET RECOMMENDATIONS: Protein intake: 105 grams or more daily Follow a diabetic-friendly, healthy diet high in protein. Please refer to educational handouts provided for more diet information. It is recommended to include a protein supplement 2-3 times daily. Ensure high protein is great, however Ensure also makes a max protein version that provides 30 grams of protein per serving. You can also include Renan twice day which is a powder that promotes wound healing by providing specific amino acids/vitamin/minerals for healing. Renan can be found at [employer] and [employer], etc. Handouts provided: Carbohydrate Counting for People with Diabetes from [facility] and [employer]plate event planner as well as brochure from [employer] regarding Renan. RDN's contact information provided. Patient and/or encouraged to call with questions or concerns.
--- NOTE | 2023-10-30 10:07 | REH.OT ---
OT: Order received, chart reviewed and per rounds therapy to hold with plan for surgery today. Will check status tomorrow.
--- NOTE | 2023-10-30 10:46 | P.IMPN_ITS ---
Progress Note: A&P Assessment and plan (1) Pressure ulcer of left buttock, stage 4: Problem details: -headed to OR 10/30 for debridement, bone cultures -continue broad spectrum abx, narrow with new cultures -adding CRP and will follow CRP Status: Chronic (2) Chronic anticoagulation: Problem details: hx of DVT. Vit K x 2 will bridge with lovenox until warfarin (once restarted) had brought INR back to therapeutic range. Status: Acute (3) Diabetes mellitus type 2 in nonobese: Problem details: -diet controlled, no longer insulin-dependent -b.i.d. glucose checks Status: Chronic (4) Hyperlipidemia: Problem details: -continue statin Status: Chronic (5) Hypertension: Problem details: -continue amlodipine, reports historically blood pressures are higher in the morning and in the evening Status: Chronic (6) Chronic pain syndrome: Problem details: -continue scheduled home medications to avoid withdrawal -monitor for sedation, delirium while hospitalized -has a spinal cord stimulator in place Status: Chronic (7) Lymphedema: Problem details: -bilateral lower extremity wraps, continue Lasix Status: Chronic (8) Paraplegia: Problem details: -since 2009, 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 SCDs. Status: Chronic (10) Dementia: Problem details: -monitor for delirium Status: Chronic (11) COPD (chronic obstructive pulmonary disease): Problem details: -stable, encourage postoperative pulmonary hygiene, incentive spirometry Status: Chronic (12) Anemia: Problem details: -of chronic disease -hgb 11.0, continue to monitor Status: Chronic Subjective Date Seen: 10/30/23 Interval history: Daily Progress Note - Hospital Medicine Day #: 2 CC: stage IV decubitus ulcer with a left ischial tuberosity osteo OVERNIGHT UPDATES FROM STAFF & MED, LAB, IMAGING UPDATES T-max was 100.5? at 2:00 a.m. this morning. Currently 98.3 Blood pressure 114/68. Pulse 88. Rest per 14. Pulse ox 94% on room air. Weight is 101.4 kilos Hemoglobin this morning 9.7, down from 11.0. White blood cell count is down trending from 13.8-11.1 INR initially was 2.73, given 5 mg IV vitamin K, down to 1.64 this morning. Given another dose of IV vitamin K. Sodium is 132 Otherwise electrolytes are normal. Renal function is normal. Inflammatory markers-CRP add on is pending procalcitonin was normal Blood culture x 2 negative wound culture growing K. Pneumoniae. Objective: resting comfortably. Vitals: see above Lungs: Clear. Cardiac: S1S2. wounds not examined. I did review wound care clinic notes/pictures and rounded with surgeon this morning. Disposition/Potential discharge - Likely to return to previous living situation. Today I spent 50minutes seeing the patient, reviewing Expanse and EPIC notes/diagnostics, discussing the care plan with our care time that includes social work, PT/OT, pharmacy, RT, mcfp and documenting my impressions and plan in the medical record. Exam Const: Vital Signs, click to edit/add: Vital Signs - 24 hr 10/29/23 16:40 10/29/23 16:40 10/29/23 17:54 Temperature 98.3 F 98.3 F Pulse Rate Pulse Rate [Pulse Oximeter] 90 90 Respiratory Rate 18 18 18 Blood Pressure [Le ft Arm] 126/70 126/70 Pulse Oximetry 98 98 98 Oxygen Delivery Me thod Room Air Room Air Room Air 10/29/23 19:00 10/29/23 19:00 10/29/23 23:00 Temperature 98.5 F Pulse Rate 97 Pulse Rate [Pulse Oximeter] 99 Respiratory Rate 18 Blood Pressure [Le ft Arm] 127/74 Pulse Oximetry 97 97 Oxygen Delivery Mn thod Room Air Room Air 10/29/23 23:00 10/29/23 23:00 10/30/23 02:38 Temperature 99.5 F 100.5 F H Pulse Rate Pulse Rate [Pulse Oximeter] 99 94 Respiratory Rate 18 18 Blood Pressure [Le ft Arm] 114/74 Pulse Oximetry 95 Oxygen Delivery Mn thod Room Air 10/30/23 02:41 10/30/23 03:26 10/30/23 07:18 Temperature 100.5 F H 99.6 F Pulse Rate 85 Pulse Rate [Pulse Oximeter] 93 Respiratory Rate 18 Blood Pressure [Le ft Arm] 102/58 L Pulse Oximetry 94 Oxygen Delivery Me thod Room Air 10/30/23 07:31 10/30/23 07:35 Temperature 98.3 F Pulse Rate Pulse Rate [Pulse Oximeter] 88 88 Respiratory Rate 14 14 Blood Pressure [Le ft Arm] 114/68 Pulse Oximetry 94 Oxygen Delivery Me thod Room Air Labs Labs: Laboratory Results - last 24 hr 10/29/23 10/29/23 10/29/23 18:18 18:45 19:02 WBC 13.78 H RBC 3.73 L Hgb 11.0 L Hct 33.4 L MCV 90 MCH 30 MCHC 33 RDW Coeff of Eleazar 13.4 Plt Count 300 Neut % (Auto) 82.2 H Lymph % (Auto) 7.5 L [place] % (Auto) 9.2 Eos % (Auto) 0.3 Baso % (Auto) 0.1 Neut # (Auto) 11.30 H Lymph # (Auto) 1.00 [place] # (Auto) 1.30 H Eos # (Auto) 0.00 Baso # (Auto) 0.00 Abs Immat Gran (auto) 0.10 Imm/Tot Granulo (auto) 0.7 INR 2.73 H Sodium 133 L Potassium 4.2 Chloride 94 L Carbon Dioxide 30 Anion Gap 9 BUN 14 Creatinine 0.6 Estimated Creat Clear 61.86 Estimated GFR 99 Glucose 164 H Lactate 1.1 Calcium 8.6 Magnesium Total Bilirubin 0.4 AST 44 H ALT 63 H Alkaline Phosphatase 130 Total Protein 7.1 Albumin 3.7 Procalcitonin 0.18 Lab Acknowledgement Test Added 10/30/23 05:45 WBC 11.14 H RBC 3.29 L Hgb 9.7 L Hct 29.5 L MCV 90 MCH 30 MCHC 33 RDW Coeff of Eleazar Plt Count 278 Neut % (Auto) Lymph % (Auto) [place] % (Auto) Eos % (Auto) Baso % (Auto) Neut # (Auto) Lymph # (Auto) [place] # (Auto) Eos # (Auto) Baso # (Auto) Abs Immat Gran (auto) Imm/Tot Granulo (auto) INR 1.64 H Sodium 132 L Potassium 3.8 Chloride 96 Carbon Dioxide 26 Anion Gap 10 BUN 11 Creatinine 0.6 Estimated Creat Clear 61.86 Estimated GFR 99 Glucose 92 Lactate Calcium 8.3 L Magnesium 2.1 Total Bilirubin AST ALT Alkaline Phosphatase Total Protein Albumin Procalcitonin Lab Acknowledgement
[2023-10-30 11:39] LABS: C Reactive Protein* 24.5 mg/dL (0.5-1.0)
[2023-10-30 11:39] LABS: C Reactive Protein* 24.3 mg/dL (0.5-1.0)
[2023-10-30 11:57] LABS: INR 1.45 (0.91-1.10); Prothrombin Time 18.7 Seconds
--- NOTE | 2023-10-30 13:33 | P.ANES_ITS ---
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
--- NOTE | 2023-10-30 13:56 | P.ANES_ITS ---
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
--- NOTE | 2023-10-30 14:10 | P.GSOP_ITS ---
Operative Note Date of procedure: 10/30/23 Pre-op diagnosis: 1. Stage IV left ischial tuberosity pressure wound with necrosis 2. Possible osteomyelitis Post-op diagnosis: Same Type of Procedure: 1. Sharp debridement down to bone, left ischial pressure ulcer, 3 x 3 x 4 cm. 2. Bone biopsy for culture Indications: The patient is a 78-year-old male with an ischial tuberosity pressure ulcer which has become progressively worse despite intervention. He was started on IV antibiotics and had imaging showing that the ulcer went down to bone with concern for osteomyelitis. He had persistent fevers despite the antibiotics. On presentation to wound clinic yesterday the wound had significant foul- smelling drainage with necrosis. It was felt that he needed OR debridement. He was admitted to the hospital, placed on broad antibiotics and after reversal have his INR he was taken to the OR for wound debridement. Procedure Description: After discussing the risks and benefits of the procedure, the patient's signed informed consent.? The patient was brought to the operating room and placed on the operating table in left lateral decubitus position using a sand bag. Anesthesia then administered sedation. The wound was then prepped and draped sterilely. Cautery was then used to excise the entire rim of the wound. The wound measured 2.5 in diameter by approximately 4 cm deep. The isbell of the wound cavity were necrotic circumferentially. This was excised to subcutaneous fat circumferentially. A piece of tissue was sent for culture. Debridement continued until healthy bleeding tissue was encountered. Anteriolaterally there was a large amount of scar tissue without any visible blood vessels. This was excised, again down to healthy bleeding tissue. Once this was done the base of the wound was exposed. There was necrotic appearing tendon noted. This was excised using a Reardon scissor. A piece of this was sent for culture. Debridement of this fibrinous green, necrotic tissue was completed. There was healthy muscle visible at the posterior aspect of the wound. This was not debrided. The ischium was visible in the base of the wound. A rongeur was then used to remove several small pieces of the bone. This was sent for culture. The edge of the bone was bleeding. This was controlled with cautery. The wound cavity was then examined. It did track superiorly as well as anteriorly for approximately 1 cm at the deepest portion of the wound at the ischium. Using a rongeur as well as cautery, I was able to excise the deepest edge of the wound to open up the base of the wound to expose both tunnels. Anteriorly fibrinous green necrotic tissue was debrided with a rongeur. Once this was done, the wound was examined. It appeared to be adequately debrided. Hemostasis was achieved with cautery. I then obtained a Pulsavac lavage jet and thoroughly irrigated the wound. Once this was done, again the wound was examined. It appeared clean and free of significant necrotic tissue. The bone did appear to be hemostatic, however I placed a piece of Surgicel over the top of this as the patient will be anticoagulated. I then packed the wound with Kerlix soaked in Vashe. The wound was then covered with Mepilex. The patient was then woken and transported back to his hospital room for recovery. ? The patient tolerated the procedure well. Findings: Ischial tuberosity wound with exposed bone, circumferential necrosis and necrotic tendon Anesthesia: MAC Surgeon: Katerina Fortune MD Estimated blood loss (mL): 5 Additional Specimen Information: 1. Left ischial tuberosity wound for culture 2. Left ischial tuberosity wound, deep for culture 3. Left ischial tuberosity bone for culture Condition: stable Disposition: floor
--- NOTE | 2023-10-30 14:35 | PC.NURSE ---
End of Shift: Patient pleasant and cooperative, oriented to self. Patient vitally stable, lungs clear, BS WNL, IV running NS at 75. [place] intact and draining. Ostomy has some stool, not emptied this shift, as patient reports when it is time to change whole bag a throw away old one with stool. Patient tolerating ice chips and has ate apple sauce since back from wound debridement. Left buttock wound with mepilex C/D/I. Tele=NS w/1 degree HB. at bedside.
[2023-10-30] MEDS: 0.9 % SODIUM CHLORIDE 1000 ml 1,000 ML 75 ML IV (17:39)
--- NOTE | 2023-10-30 19:25 | PC.NURSE ---
shift note: vss stable. drsg done to lt buttock per D.O. wound bed red and clean. moderate amount of serosang drainage on kerlex. picc site intact. bilat l/e edema 1+ in feet & ankles. ostomy site intact/dry. small amount of formed soft stool in bag. urostomy intact. clr yellow urine in green bag.
[2023-10-30] MEDS: DONEPEZIL 5 MG TABLET PO (20:14)
[2023-10-30] MEDS: ARIPiprazole 10 MG TABLET 2.5 MG PO (20:15)
[2023-10-30] MEDS: ATORVASTATIN CALCIUM 40 MG TABLET PO (20:15)
[2023-10-30] MEDS: ENOXAPARIN 40 MG/0.4 ML INJ SUBCUT (20:16)
[2023-10-30] MEDS: LORazepam 1 MG TABLET PO (20:17)
[2023-10-30] MEDS: SODIUM CHLORIDE 0.9 % (FLUSH) 10 ML SYRINGE 5 ML IVF (20:17)
[2023-10-31] VITALS (9 sets, daily range): BP systolic 97–138; BP diastolic 49–75; PULSE 78–96; RESP 16–18; TEMP 36.3–37.2; O2SAT 90–98
[2023-10-31] MEDS: PIPERACILLIN/TAZOBACTAM 3.375 GM in 0.9 % SODIUM CHLORIDE Mini-bag 100 ML IVPB ×4 (02:05→19:53)
[2023-10-31] MEDS: OXYCODONE 5 MG TABLET 10 MG PO ×4 (05:58→23:47)
--- NOTE | 2023-10-31 06:12 | PC.NURSE ---
End of shift [id number]: Pt A&O and VSS overnight with exception to fever. T-max 100 degrees; PRN Tylenol given with relief. Pt declined having pain but reports he can feel the ?pressure?. Scheduled oxycodone given per JAN. Pt repositioned q2H and as he requested to offload from neel-rectal wound. Mepilex dressing C/D/I, did not need to be changed or reinforced overnight. RUE PICC patent & infusing NS @ 75 mL/hr. On TELE reading ST rate 90s with 1st degree block. Ostomy bag did not need changing overnight. Suprapubic catheter patent draining clear, yellow urine. Total output: 1075 mL. Pt has excellent PO fluid intake & adequate U/O.?
[2023-10-31 06:39] LABS: Hematocrit 28.9 % (37.0-53.0); Hemoglobin* 9.5 gm/dL (13.5-17.5); Mean Corpuscular HGB Conc 33 gm/dL (32-36); Mean Corpuscular Hemoglobin 30 pg (26-34); Mean Corpuscular Volume 90 fL (80-100); Platelet Count* 283 K/uL (140-440); Red Blood Count 3.22 m/uL (4.30-5.90); White Blood Count* 9.28 K/uL (4.50-11.00)
[2023-10-31 06:57] LABS: Chloride* 99 mmol/L (96-114); Potassium* 3.5 mmol/L (3.6-5.1); Sodium* 133 mmol/L (135-149)
[2023-10-31 07:00] LABS: Creatinine* 0.5 mg/dL (0.5-1.5); Est. Creatinine Clearance* 61.86; Estimated Glomerular Filt Rate 105 ml/min
[2023-10-31 07:01] LABS: Anion Gap 8 mEq/L (7-15); Blood Urea Nitrogen* 9 mg/dL (7-30); Calcium* 8.1 mg/dL (8.4-10.6); Carbon Dioxide* 26 mmol/L (20-32); Glucose* 78 mg/dL (60-115)
[2023-10-31 07:15] LABS: C Reactive Protein* 21.7 mg/dL (0.5-1.0); INR 1.25 (0.91-1.10); Prothrombin Time 16.5 Seconds
[2023-10-31 07:32] LABS: Slide Review Reflex No
[2023-10-31] MEDS: 0.9 % SODIUM CHLORIDE 1000 ml 1,000 ML 75 ML IV (08:07)
--- NOTE | 2023-10-31 08:07 | P.IMPN_ITS ---
Progress Note: A&P Assessment and plan (1) Pressure ulcer of left buttock, stage 4: Problem details: -POD 1 wound debridement - left buttock, ischial spine -continue broad spectrum abx, narrow with new cultures -CRP downtrending, WBC normalized Status: Chronic (2) Chronic anticoagulation: Problem details: hx of DVT. Vit K x 2 back on warfarin; VTE lovenox bridge Status: Acute (3) Diabetes mellitus type 2 in nonobese: Problem details: -diet controlled, no longer insulin-dependent -achs glucose checks Status: Chronic (4) Hyperlipidemia: Problem details: -continue statin Status: Chronic (5) Hypertension: Problem details: -continue amlodipine, reports historically blood pressures are higher in th e morning and in the evening Status: Chronic (6) Chronic pain syndrome: Problem details: -continue scheduled home medications to avoid withdrawal -monitor for sedation, delirium while hospitalized -has a spinal cord stimulator in place Status: Chronic (7) Lymphedema: Problem details: -bilateral lower extremity wraps, continue Lasix Status: Chronic (8) Paraplegia: Problem details: -since 2009, 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 SCDs. Status: Chronic (10) Dementia: Problem details: -monitor for delirium Status: Chronic (11) COPD (chronic obstructive pulmonary disease): Problem details: -stable, encourage postoperative pulmonary hygiene, incentive spirometry Status: Chronic (12) Anemia: Problem details: -of chronic disease -hgb 9.5, monitor Status: Chronic Subjective Date Seen: 10/31/23 Interval history: Daily Progress Note - Hospital Medicine Day #: 3 ANTIBIOTICS: Ceftriaxone, 2 g Q 24, 10/22 through 10/29 (outpatient [place] [id number] infusion center) TOTAL 8 DAYS Admitted on 10/29. Vancomycin 1.5 g q.12, Zosyn 3.375 g Q 6 started in the early hours of 12/31. DAY TWO POST OP DAY #1 Date of procedure: 10/30/23 Pre-op diagnosis: 1. Stage IV left ischial tuberosity pressure wound with necrosis 2. Possible osteomyelitis Type of Procedure: 1. Sharp debridement down to bone, left ischial pressure ulcer, 3 x 3 x 4 cm. 2. Bone biopsy for culture CC: stage IV decubitus ulcer with a left ischial tuberosity osteo OVERNIGHT UPDATES FROM STAFF & MED, LAB, IMAGING UPDATES End of shift [id number]: Pt A&O and VSS overnight with exception to fever. T-max 100 degrees; PRN Tylenol given with relief. Pt declined having pain but reports he can feel the ?pressure?. Scheduled oxycodone given per JAN. Pt repositioned q2H and as he requested to offload from neel-rectal wound. Mepilex dressing C/D/I, did not need to be changed or reinforced overnight. RUE PICC patent & infusing NS @ 75 mL/hr. On TELE reading ST rate 90s with 1st degree block. Ostomy bag did not need changing overnight. Suprapubic catheter patent draining clear, yellow urine. Total output: 1075 mL. Pt has excellent PO fluid intake & adequate U/O. 122/73. Pulse 89. Resp is 18. Afebrile. On room air. T-max 100? degrees F at 1130pm last night. CBC reflects a now normal white blood cell count. It was 13.8 on admission. Hemoglobin has drifted down to 9.5. Platelets are normal. INR is 1.25, this is after vitamin K for reversal of his anticoagulation for surgery yesterday. Sodium is up to 133. Potassium is a little low at 3.5 CRP is down trending Blood culture x 2 negative, from 10/29 wound culture from 10/15 growing K. Pneumoniae. 10/30 surgical debridement resulting in to buttock wound cultures and bone culture all pending. G stains all showing multiple organisms. Objective: resting comfortably. Vitals: see above Lungs: Clear. Cardiac: S1S2. Left buttock: Deep open wound about the size of a plum and deep to the ischial tuberosity. Examined and debrided with general surgery at the bedside this morning. Disposition/Potential discharge - Likely to return to previous living situation. Today I spent 50minutes seeing the patient, reviewing [facility] and [facility] notes/diagnostics, discussing the care plan with our care time that includes social work, PT/OT, pharmacy, RT, long-term and documenting my impressions and plan in the medical record. Exam Const: Vital Signs, click to edit/add: Vital Signs - 24 hr 10/30/23 11:17 10/30/23 13:48 10/30/23 14:10 Temperature 98.3 F 97.9 F 98.2 F Pulse Rate 89 Pulse Rate [Pulse Oximeter] 95 86 Respiratory Rate 16 14 14 Blood Pressure [Le ft Arm] 120/70 101/62 101/62 Pulse Oximetry 93 Oxygen Delivery Me thod Room Air Room Air Room Air 10/30/23 14:18 10/30/23 14:30 10/30/23 14:46 Temperature 98 F 97.5 F L 97.8 F Pulse Rate Pulse Rate [Pulse Oximeter] 83 81 81 Respiratory Rate 14 14 14 Blood Pressure [Le ft Arm] 103/64 108/63 109/62 Pulse Oximetry 93 93 94 Oxygen Delivery Me thod Room Air Room Air Room Air 10/30/23 15:00 10/30/23 17:32 10/30/23 19:44 Temperature 97.6 F 98.3 F Pulse Rate 83 Pulse Rate [Pulse Oximeter] 91 94 Respiratory Rate 16 16 Blood Pressure [Le ft Arm] 123/64 123/64 Pulse Oximetry 95 94 Oxygen Delivery Me thod Room Air Room Air 10/30/23 23:00 10/30/23 23:00 10/30/23 23:00 Temperature 100 F H Pulse Rate 95 Pulse Rate [Pulse Oximeter] 95 95 Respiratory Rate 18 18 Blood Pressure [Le ft Arm] 121/70 Pulse Oximetry 95 Oxygen Delivery Me thod Room Air 10/30/23 23:24 10/31/23 00:17 10/31/23 03:00 Temperature 100 F H 98.9 F 98.5 F Pulse Rate Pulse Rate [Pulse Oximeter] 85 Respiratory Rate 16 Blood Pressure [Le ft Arm] 109/69 Pulse Oximetry 93 Oxygen Delivery Me thod Room Air Labs Labs: Laboratory Results - last 24 hr 10/29/23 10/30/23 10/30/23 18:18 05:45 10:50 WBC RBC Hgb Hct MCV MCH MCHC Plt Count INR Sodium Potassium Chloride Carbon Dioxide Anion Gap BUN Creatinine Estimated Creat Clear Estimated GFR Glucose Calcium C-Reactive Protein 24.5 H 24.3 H Lab Acknowledgement Test Added 10/30/23 10/31/23 11:28 06:07 WBC 9.28 RBC 3.22 L Hgb 9.5 L Hct 28.9 L MCV 90 MCH 30 MCHC 33 Plt Count 283 INR 1.45 H 1.25 H Sodium 133 L Potassium 3.5 L Chloride 99 Carbon Dioxide 26 Anion Gap 8 BUN 9 Creatinine 0.5 Estimated Creat Clear 61.86 Estimated GFR 105 Glucose 78 Calcium 8.1 L C-Reactive Protein 21.7 H Lab Acknowledgement
[2023-10-31] MEDS: FUROSEMIDE 40 MG TABLET PO (08:09)
[2023-10-31] MEDS: POTASSIUM CHLORIDE 10 MEQ CAPSULE ER 20 MEQ PO (08:09)
--- NOTE | 2023-10-31 08:56 | REH.PT ---
PT order dc'd. Pt is wc bound, charis lift. OT addressing seating and UE ROM. Ok to dc order per hospitalist.
[2023-10-31] MEDS: ARIPiprazole 10 MG TABLET 2.5 MG PO ×2 (09:16→20:40)
[2023-10-31] MEDS: MAGNESIUM HYDROXIDE 30 ML ORAL.SUSP 15 ML PO (09:16)
[2023-10-31] MEDS: DULOXETINE 30 MG CAPSULE DR 60 MG PO ×2 (09:16→20:37)
[2023-10-31] MEDS: FAMOTIDINE 20 MG TABLET PO (09:16)
[2023-10-31] MEDS: BACLOFEN 10 MG TABLET 40 MG PO ×3 (09:16→20:37)
[2023-10-31] MEDS: AMLODIPINE 5 MG TABLET PO (09:16)
[2023-10-31] MEDS: GABAPENTIN 100 MG CAPSULE 400 MG PO ×3 (09:16→20:40)
[2023-10-31] MEDS: buPROPion HCL SR 150 MG TAB PO ×2 (09:17→20:37)
--- NOTE | 2023-10-31 09:59 | NUTR.NU ---
Nutrition Follow-up related to diet recommendations requested per . RDN visited with patient and and provided diet recommends per request. Diet recommendations provided regarding high protein diet with goal of 105 grams or more daily and to follow a diabetic-friendly diet. Also recommended to include a protein supplement 2-3 times daily. Provided information on higher protein supplements such as Ensure max protein or premier protein compared to what patient currently consumes (Ensure high protein). Also discussed including Renan twice day which is a powder that promotes wound healing by providing specific amino acids/vitamin/minerals for healing. Patient and were grateful for the information and had no questions or concerns. RDN's contact information provided. Patient and/or were encouraged to call with questions or concerns. Handouts provided: Carbohydrate Counting for People with Diabetes, Pressure Ulcer Nutrition therapy, and High Protein Foods List from [employer] and [employer] as well as brochure from [employer] regarding Renan.
[2023-10-31] MEDS: WARFARIN 5 MG TABLET 10 MG PO (10:48)
--- NOTE | 2023-10-31 11:30 | PM.GSPN ---
Subjective Subjective Date Seen: 10/31/23 Interval history: No changes today. Nursing change dressing overnight. No fevers. Exam Narrative: Exam Narrative: Wound: Left buttock wound examined. Dressing removed. Minimal drainage noted. The wound bed medially however appeared to have persistent necrosis. This was debrided sharply with a scissor down to bleeding subcutaneous fat in an area measuring 3 x 2 cm. This tissue was foul smelling. The wound was examined circumferentially. There did not appear to be any other is significant necrosis. The wet to dry dressing was replaced. Const: Vital Signs, click to edit/add: Vital Signs - 24 hr 10/30/23 13:48 10/30/23 14:10 10/30/23 14:18 Temperature 97.9 F 98.2 F 98 F Pulse Rate 89 Pulse Rate [Pulse Oximeter] 86 83 Respiratory Rate 14 14 14 Blood Pressure [Le ft Arm] 101/62 101/62 103/64 Pulse Oximetry 93 93 Oxygen Delivery Me thod Room Air Room Air Room Air 10/30/23 14:30 10/30/23 14:46 10/30/23 15:00 Temperature 97.5 F L 97.8 F Pulse Rate 83 Pulse Rate [Pulse Oximeter] 81 81 Respiratory Rate 14 14 Blood Pressure [Le ft Arm] 108/63 109/62 Pulse Oximetry 93 94 Oxygen Delivery Me thod Room Air Room Air 10/30/23 17:32 10/30/23 19:44 10/30/23 23:00 Temperature 97.6 F 98.3 F Pulse Rate 95 Pulse Rate [Pulse Oximeter] 91 94 Respiratory Rate 16 16 Blood Pressure [Le ft Arm] 123/64 123/64 Pulse Oximetry 95 94 Oxygen Delivery Me thod Room Air Room Air 10/30/23 23:00 10/30/23 23:00 10/30/23 23:24 Temperature 100 F H 100 F H Pulse Rate Pulse Rate [Pulse Oximeter] 95 95 Respiratory Rate 18 18 Blood Pressure [Le ft Arm] 121/70 Pulse Oximetry 95 Oxygen Delivery Me thod Room Air 10/31/23 00:17 10/31/23 03:00 10/31/23 08:03 Temperature 98.9 F 98.5 F 98.4 F Pulse Rate Pulse Rate [Pulse Oximeter] 85 89 Respiratory Rate 16 18 Blood Pressure [Le ft Arm] 109/69 122/73 Pulse Oximetry 93 92 Oxygen Delivery Me thod Room Air Room Air 10/31/23 08:12 Temperature Pulse Rate 89 Pulse Rate [Pulse Oximeter] Respiratory Rate Blood Pressure [Le ft Arm] Pulse Oximetry Oxygen Delivery Me thod Labs/Imaging Labs Labs: White blood cell count is normal Cultures are pending but Gram stain from the bone and buttock show Gram-positive cocci, Gram-negative rods and Gram-positive rods. Progress Note: A&P Assessment and plan (1) Chronic anticoagulation: Problem details: hx of DVT. 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 SCDs. Status: Chronic (4) COPD (chronic obstructive pulmonary disease): Problem details: -stable, encourage postoperative pulmonary hygiene, incentive spirometry Status: Chronic (5) Pressure ulcer of left buttock, stage 4: Problem details: -POD 1 wound debridement - left buttock, ischial spine -continue broad spectrum abx, narrow with new cultures -CRP downtrending, WBC normalized Status: Chronic Plan The patient is a 78-year-old male with paraplegia and a left buttock wound with concern for osteomyelitis. This was debrided in the OR yesterday, however today he has more necrotic tissue noted. This was removed sharply at the bedside. He may need additional debridement tomorrow. We will plan on this at some point. This can hopefully be done at bedside. If the wound looks worse we may have to consider repeat trip to the OR. -regarding wound cares he should have b.i.d. dressing changes with Vashe. The orders are placed. There is a plan for him to have a wound VAC once the wound is stable. This will be done as an outpatient through the wound center. Once he is able to discharge home his will be able to do dressing changes in between his home health service. -continue broad antibiotics. Source control is ongoing as there was continued necrosis in the wound today though the patient clinically appears better. Will narrow and come up with a plan for discharge once culture results are back.
[2023-10-31] MEDS: LORazepam 0.5 MG TABLET PO (12:32)
--- NOTE | 2023-10-31 16:12 | PC.SOCIAL ---
Discharge planning: residential worker contacted Angelique at [facility] to inform their team that the pt is in the hospital. Home Care is unable to open the pt for services until after the 11 of November due to staffing. Spoke to [facility] and provided updated information about Home Care. residential worker connected with pt and today, as well, and introduced myself. residential worker will check-in with pt and again tomorrow after morning rounds with the doctor. Social work to follow-up as needed.
[2023-10-31] MEDS: ATORVASTATIN CALCIUM 40 MG TABLET PO (20:37)
[2023-10-31] MEDS: DONEPEZIL 5 MG TABLET PO (20:37)
[2023-10-31] MEDS: LORazepam 1 MG TABLET PO (20:37)
[2023-10-31] MEDS: SODIUM CHLORIDE 0.9 % (FLUSH) 10 ML SYRINGE 5 ML IVF (20:38)
--- NOTE | 2023-10-31 22:38 | PC.NURSE ---
Shift [id number]- Patient describes some back pain, but states its normal. He is drinking and voiding- see charting for amounts. IV fluids stopped per MD. He is turned and repositioned q2h or more often, per patient request/comfort. Pillows used for offloading. Dressing to wound changed per wound care orders. Patient tolerates well. He changes ostomy bag independently/ with this evening.
[2023-10-31] MEDS: 5 % DEXTROSE/0.9% SOD CHLORIDE 1,000 ML 75 ML IV (23:45)
[2023-11-01] VITALS (10 sets, daily range): BP systolic 99–153; BP diastolic 47–80; PULSE 68–90; RESP 16–18; TEMP 36.3–37.1; O2SAT 91–96
[2023-11-01] MEDS: PIPERACILLIN/TAZOBACTAM 3.375 GM in 0.9 % SODIUM CHLORIDE Mini-bag 100 ML IVPB ×4 (02:03→20:35)
[2023-11-01] MEDS: OXYCODONE 5 MG TABLET 10 MG PO ×4 (06:10→23:55)
[2023-11-01 06:19] LABS: Hemoglobin* 9.4 gm/dL (13.5-17.5); Mean Corpuscular HGB Conc 32 gm/dL (32-36); Mean Corpuscular Hemoglobin 29 pg (26-34); Mean Corpuscular Volume 90 fL (80-100); Platelet Count* 274 K/uL (140-440); Red Blood Count 3.22 m/uL (4.30-5.90); White Blood Count* 7.17 K/uL (4.50-11.00)
--- NOTE | 2023-11-01 06:19 | PC.NURSE ---
End of shift [id number]: Pt A&O and VSS overnight. Pt remained afebrile and O2 maintained on RA. No signs of dementia and slept heavily in between cares. Repositioned patient q2H and as pt requested for comfort & offloading from left ischial abscess. Pt has been NPO since 0000. D5 in 0.9% NaCl infusing in RUE PICC @ 75 mL/hr. Suprapubic catheter draining pale yellow urine, total output 950 mL. Ostomy bag C/D/I with scant amount of soft stool in it. SCD?s remained in place overnight. TELE reads SR w/ 1st degree block. Gram stains growing multiple organisms. Blood cultures show no growth after 48 hours. Pt is aware of planned debridement today 11/01 with possibility of returning to OR.?
[2023-11-01 06:20] LABS: Slide Review Reflex No
[2023-11-01 06:30] LABS: Chloride* 103 mmol/L (96-114)
[2023-11-01 06:31] LABS: Potassium* 3.4 mmol/L (3.6-5.1); Sodium* 139 mmol/L (135-149)
[2023-11-01 06:34] LABS: Anion Gap 9 mEq/L (7-15); Blood Urea Nitrogen* 10 mg/dL (7-30); Carbon Dioxide* 27 mmol/L (20-32); Creatinine* 0.5 mg/dL (0.5-1.5); Est. Creatinine Clearance* 61.86; Estimated Glomerular Filt Rate 105 ml/min; Glucose* 114 mg/dL (60-115)
[2023-11-01 06:35] LABS: Calcium* 8.2 mg/dL (8.4-10.6)
[2023-11-01 06:49] LABS: INR 1.45 (0.91-1.10); Prothrombin Time 18.6 Seconds
[2023-11-01 07:22] LABS: C Reactive Protein* 16.3 mg/dL (0.5-1.0)
--- NOTE | 2023-11-01 08:10 | PM.IMPN1 ---
Progress Note: A&P Assessment and plan (1) Pressure ulcer of left buttock, stage 4: Problem details: -POD 2 wound debridement - left buttock, ischial spine -continue broad spectrum abx, narrow with new cultures -CRP downtrending, WBC normalized -ID CONNECT CONSULT PLACED AM OF 11/01 (despite not having all cultures back) Status: Chronic (2) Chronic anticoagulation: Problem details: hx of DVT. 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 -warfarin resumed POD #1, 10/31 -goal INR 2-3 -daily INR -pharm consult placed Status: Chronic (5) Anemia: Problem details: -of chronic disease -hgb 9.5, monitor Status: Chronic (6) Acute hypokalemia: Problem details: -oral replacement -11/01 changed dosing frequency to BID Status: Acute (7) COPD (chronic obstructive pulmonary disease): Problem details: -stable, encourage postoperative pulmonary hygiene, incentive spirometry Status: Chronic Subjective Date Seen: 11/01/23 Interval history: Daily Progress Note - Hospital Medicine Day #: 4 ANTIBIOTICS: Ceftriaxone, 2 g Q 24, 10/22 through 10/29 (outpatient [place] [id number] infusion center) TOTAL 8 DAYS Admitted on 10/29. Vancomycin 1.5 g q.12, Zosyn 3.375 g Q 6 started in the early hours of 12/31. DAY THREE POST OP DAY #2 Date of procedure: 10/30/23 Pre-op diagnosis: 1. Stage IV left ischial tuberosity pressure wound with necrosis 2. Possible osteomyelitis Type of Procedure: 1. Sharp debridement down to bone, left ischial pressure ulcer, 3 x 3 x 4 cm. 2. Bone biopsy for culture CC: stage IV decubitus ulcer with a left ischial tuberosity osteo OVERNIGHT UPDATES FROM STAFF & MED, LAB, IMAGING UPDATES End of shift [id number]: Pt A&O and VSS overnight. Pt remained afebrile and O2 maintained on RA. No signs of dementia and slept heavily in between cares. Repositioned patient q2H and as pt requested for comfort & offloading from left ischial abscess. Pt has been NPO since 0000. D5 in 0.9% NaCl infusing in RUE PICC @ 75 mL/hr. Suprapubic catheter draining pale yellow urine, total output 950 mL. Ostomy bag C/D/I with scant amount of soft stool in it. SCD's remained in place overnight. TELE reads SR w/ 1st degree block. Gram stains growing multiple organisms. Blood cultures show no growth after 48 hours. Pt is aware of planned debridement today 11/01 with possibility of returning to OR. AFEBRILE 99/56, 101/60, 113/60 HOLDING AMLODIPINE Pulse 80s Respiratory rate 16 to 18 Pulse ox 92% on room air 98.6 kilos Hemoglobin is stable at 9.4, preop 11.0 White count is normal Platelet count is normal INR slowly climbing, 1.45 with goal of 2-3. First dose of warfarin was yesterday. Potassium is slightly low at 3.4, aguilar electrolytes and renal function is normal INCREASING POTASSIUM SUPPLEMENTATION TO B.I.D. CRP continues to downtrend Blood culture x 2 negative, from 10/29 wound culture from 10/15 growing K. Pneumoniae. 10/30 surgical debridement resulting in to buttock wound cultures and bone culture all pending. G stains all showing multiple organisms. Objective: resting comfortably. Vitals: see above Lungs: Clear. Cardiac: S1S2. at the time of this note: wound not examined. will assist general surgery w/bedside debridment later today. Disposition/Potential discharge - Likely to return to previous living situation. Today I spent 50minutes seeing the patient, reviewing [facility] and [facility] notes/diagnostics, discussing the care plan with our care time that includes social work, PT/OT, pharmacy, RT, residential and documenting my impressions and plan in the medical record. Exam Const: Vital Signs, click to edit/add: Vital Signs - 24 hr 10/31/23 08:12 10/31/23 12:30 10/31/23 16:00 Temperature 98.5 F 97.3 F L Pulse Rate 89 Pulse Rate [Apical ] 90 Pulse Rate [Pulse Oximeter] 92 Respiratory Rate 18 18 Blood Pressure [Le ft Arm] 138/75 97/49 L Pulse Oximetry 98 90 Oxygen Delivery Me thod Room Air Room Air 10/31/23 16:17 10/31/23 19:08 10/31/23 23:00 Temperature 98.1 F Pulse Rate 90 78 Pulse Rate [Apical ] 96 Pulse Rate [Pulse Oximeter] Respiratory Rate 16 Blood Pressure [Le ft Arm] 113/61 Pulse Oximetry 94 Oxygen Delivery Me thod Room Air 10/31/23 23:00 10/31/23 23:00 11/01/23 02:52 Temperature 97.9 F 98 F Pulse Rate Pulse Rate [Apical ] Pulse Rate [Pulse Oximeter] 82 82 82 Respiratory Rate 16 16 18 Blood Pressure [Le ft Arm] 113/68 101/60 Pulse Oximetry 92 93 Oxygen Delivery Me thod Room Air Room Air 11/01/23 07:54 Temperature 98 F Pulse Rate Pulse Rate [Apical ] Pulse Rate [Pulse Oximeter] 83 Respiratory Rate 18 Blood Pressure [Le ft Arm] 99/56 L Pulse Oximetry 92 Oxygen Delivery Id thod Room Air Labs Labs: Laboratory Results - last 24 hr 11/01/23 06:04 WBC 7.17 RBC 3.22 L Hgb 9.4 L Hct 29.0 L MCV 90 MCH 29 MCHC 32 Plt Count 274 INR 1.45 H Sodium 139 Potassium 3.4 L Chloride 103 Carbon Dioxide 27 Anion Gap 9 BUN 10 Creatinine 0.5 Estimated Creat Clear 61.86 Estimated GFR 105 Glucose 114 Calcium 8.2 L C-Reactive Protein 16.3 H
[2023-11-01] MEDS: FUROSEMIDE 40 MG TABLET PO (08:58)
[2023-11-01] MEDS: ARIPiprazole 10 MG TABLET 2.5 MG PO ×2 (08:58→20:38)
[2023-11-01] MEDS: BACLOFEN 10 MG TABLET 40 MG PO ×3 (08:59→20:36)
[2023-11-01] MEDS: DULOXETINE 30 MG CAPSULE DR 60 MG PO ×2 (09:00→20:36)
[2023-11-01] MEDS: FAMOTIDINE 20 MG TABLET PO (09:00)
[2023-11-01] MEDS: buPROPion HCL SR 150 MG TAB PO ×2 (09:00→20:36)
[2023-11-01] MEDS: GABAPENTIN 100 MG CAPSULE 400 MG PO ×3 (09:01→20:36)
[2023-11-01] MEDS: POTASSIUM CHLORIDE 10 MEQ CAPSULE ER 20 MEQ PO ×2 (09:03→20:36)
--- NOTE | 2023-11-01 09:22 | PC.SOCIAL ---
Addendum entered by FAUSTINO Ramirez 11/01/23 13:43: Discharge planning: flying squad worker went back to pt's room this afternoon to talk with pt and pt's about discharge planning, but pt's was not in the room. flying squad worker attempted to call pt's , but left a brief message. flying squad worker to follow-up as needed. Original Note: Discharge planning: flying squad worker spoke with [facility] and updated them about pt's status and what was discussed with the [facility] yesterday. Home Care stated that they would potentially be able to open pt on November 14. Pt will most likely be in the hospital until Saturday the and may go home with his and home health care assisting until Home Care and the [facility] can open the pt fully into their programing. Social work to follow-up as needed.
--- NOTE | 2023-11-01 10:18 | W.PM.INFD_ITS ---
Consultation Information Consultation Information Date of Consult: 11/01/23 Requesting Physician: Cristy Lundy Reason for Consult: Osteomyelietis Consultation Statement: This patient recommendation is based on a telemedicine consult request which was completed asynchronously through chart review and information provided by the primary physician. The patient was not seen or examined today. The evaluation is consultative in nature and all patient care and treatment decisions can either be accepted or rejected by the patient's primary hospital-based treating physician using their own independent medical judgment for their patient. [employer] contact information: Please call [facility] call center [phone] HPI - Infectious Disease History of Present Illness History of Present Illness: 78 yo M with history of DM2, HTN, HLD, COPD, DVT on chronic anticoagulation, mild dementia, paraplegia and wheelchair-bound, neurogenic bladder with suprapubic catheter, ostomy, pressure ulcers who was admitted on 10/29 for need for debridement of chronic wound after concern of failed outpatient IV antibiotics. He follows with the wound clinic for a chronic L buttock wound. Per chart review, on 10/15 at wound care clinic, necrotic tissue and drainage was noted. A wound culture was obtained, which grew Kleb pneumo, coag neg Staph, alpha hemolytic Strep. Pt was started on ceftriaxone daily on 10/22. A CT pelvis with contrast on 10/23 showed a L perineal soft tissue ulcer extending to the L posterior iliac bone with associated osteomyelitis. At his follow-up wound care visit on 10/29, provider noticed foul odor, change in wound, and there was concern pt was failing outpatient IV antibiotics and needed surgical intervention. On presentation, pt reported intermittent fevers 99-101 over the past week. Initially, pt was afebrile, VSS, though became febrile to 100.5 on 10/30. Labs showed WBC 13.78, CRP 24.5. General surgery was consulted and pt was started on empiric vancomycin, pip-tazo. He was taken to the OR on 10/30 and underwent debridement down to bone of L ischial pressure ulcer. OR tissue and bone cultures are growing GNRs and GPCs. 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, unspecified (ICD-10) Dementia ?F03.90 - Unspecified dementia, unspecified severity, without behavioral disturbance, psychotic disturbance, mood disturbance, and anxiety (ICD-10) History of DVT (deep vein thrombosis) ?Z86.718 - Personal history of other venous thrombosis and embolism (ICD-10) COPD (chronic obstructive pulmonary disease) ?J44.9 - Chronic obstructive pulmonary disease, unspecified (ICD-10) Osteoporosis ?M81.0 - Age-related osteoporosis without current pathological fracture (ICD- 10) Lymphedema ?I89.0 - Lymphedema, not elsewhere classified (ICD-10) Anemia ?D64.9 - Anemia, unspecified (ICD-10) Chronic pain syndrome ?G89.4 - Chronic pain syndrome (ICD-10) Hyperlipidemia ?E78.5 - Hyperlipidemia, unspecified (ICD-10) Hypertension ?I10 - Essential (primary) hypertension (ICD-10) Diabetes mellitus type 2 in nonobese ?E11.9 - Type 2 diabetes mellitus without complications (ICD-10) Social History What is your current living situation?: I presently have a place to live Problems where you live: no known problems Problems where you live details: NA In the past 12 months, utilities in danger of being shut off: no In past 12 months, lack of transportation kept you from medical appts, meetings, work, or getting things needed for daily living: no In the past 12 mos, have been you worried that your food would run out before you had money to buy more?: never true In the past 12 mos, the food you bought just didn't last and you didn't have money to buy more?: never true Highest level of school completed/degree received: 12th grade, no diploma Smoking Status: Never smoker How often do you have a drink containing alcohol: never How often do you have six or more drinks on one occasion: Never AUDIT-C Alcohol total score: 0 Non-prescribed substance use: denies use Caffeine: No How often does anyone, including family, friends and others, physically hurt you : never How often does anyone, including family, friends and others, insult or talk down to you: never How often does anyone, including family, friends and others, threaten you with harm: never How often does anyone, including family, friends and others, scream or curse at you: never service: Yes Home Medications and Allergies Home Medications and Allergies Inpatient Medications: Active Medications Generic Name Dose Route Start Last Admin Trade Name Freq PRN Reason Stop Dose Admin Acetaminophen 650 - 1,000 mg 10/29/23 17:53 10/30/23 23:24 Acetaminophen 325 Mg Tablet PO 975 mg Q6H PRN Administration Amlodipine Besylate 5 mg 10/30/23 09:00 10/31/23 09:16 Amlodipine 5 Mg Tablet PO 5 mg DAILY RYAN Administration Aripiprazole 2.5 mg 10/30/23 21:00 11/01/23 08:58 Aripiprazole 10 Mg Tablet PO 2.5 mg BID RYAN Administration Atorvastatin Calcium 40 mg 10/29/23 21:00 10/31/23 20:37 Atorvastatin Calcium 40 Mg Tablet PO 40 mg HS RYAN Administration Baclofen 40 mg 10/29/23 21:00 11/01/23 08:59 Baclofen 10 Mg Tablet PO 40 mg TID RYAN Administration Bisacodyl 10 mg 10/29/23 17:53 Bisacodyl 10 Mg Supp.Rect TX DAILY PRN Bupropion HCl 150 mg 10/29/23 21:00 11/01/23 09:00 Bupropion Hcl Sr 150 Mg Tab PO 150 mg BID RYAN Administration Donepezil HCl 5 mg 10/29/23 21:00 10/31/23 20:37 Donepezil 5 Mg Tablet PO 5 mg HS RYAN Administration Duloxetine HCl 60 mg 10/29/23 21:00 11/01/23 09:00 [address] PO 60 mg BID RYAN Administration Enoxaparin Sodium 40 mg 10/30/23 21:00 10/31/23 19:54 Enoxaparin 40 Mg/0.4 Ml Inj SUBCUT Not Given HS RYAN Famotidine 20 mg 10/30/23 09:00 11/01/23 09:00 Famotidine 20 Mg Tablet PO 20 mg DAILY RYAN Administration Furosemide 40 mg 10/30/23 08:00 11/01/23 08:58 Furosemide 40 Mg Tablet PO 40 mg DAILY@0800 RYAN Administration Gabapentin 400 mg 10/29/23 21:00 11/01/23 09:01 Gabapentin 100 Mg Capsule PO 400 mg TID RYAN Administration Vancomycin HCl 1,500 mg/ 515 mls @ 257.5 mls/hr 10/29/23 21:00 11/01/23 09:45 Sodium Chloride IVPB 257.5 mls/hr Q12H RYAN Administration Protocol Piperacillin Sod/Tazobactam 100 mls @ 200 mls/hr 10/30/23 02:00 11/01/23 09:30 Sod 3.375 gm/ Sodium Chloride IVPB Infused Q6H RYAN Infusion Dextrose/Sodium Chloride 1,000 mls @ 75 mls/hr 10/31/23 23:20 10/31/23 23:45 5 % Dextrose/0.9% Sod Chloride IV 75 mls/hr .[id number] RYAN Administration IV Miscellaneous Supplies 1 each 10/30/23 09:00 Pharmacist Consult DAILY [facility] Protocol IV Miscellaneous Supplies 1 each 10/31/23 09:00 Pharmacist Consult DAILY [facility] Protocol Lorazepam 0.5 mg 10/30/23 13:00 10/31/23 12:32 Lorazepam 0.5 Mg Tablet PO 0.5 mg 1300 [facility] Administration Lorazepam 1 mg 10/29/23 21:00 10/31/23 20:37 Lorazepam 1 Mg Tablet PO 1 mg HS RYAN Administration Magnesium Hydroxide 15 ml 10/30/23 09:00 11/01/23 08:43 Magnesium Hydroxide 30 Ml Oral.Susp PO Not Given DAILY [facility] Melatonin 3 - 6 mg 10/29/23 17:53 Melatonin 3 Mg Tablet PO HS PRN Ondansetron HCl 4 mg 10/29/23 17:53 Ondansetron 2 Mg/Ml Inj IVP Q4H PRN Nausea Oxycodone HCl 10 mg 10/29/23 18:00 11/01/23 06:10 Oxycodone 5 Mg Tablet PO 10 mg Q6H RYAN Administration Polyethylene Glycol 17 gm 10/29/23 17:53 Polyethylene Glycol 3350 17 Gm Pack PO DAILY PRN Potassium Chloride 20 meq 11/01/23 09:00 11/01/23 09:03 Potassium Chloride 10 Meq Capsule Er PO 20 meq BID RYAN Administration Senna/Docusate Sodium 1 tab 10/29/23 17:53 Sennosides/Docusate Tablet PO DAILY PRN Sodium Chloride 5 ml 10/29/23 17:53 Sodium Chloride 0.9 % (Flush) 10 Ml Syringe IVF .FLUSH PRN Sodium Chloride 5 ml 10/29/23 21:00 11/01/23 08:50 Sodium Chloride 0.9 % (Flush) 10 Ml Syringe IVF Not Given BID RYAN Warfarin Sodium 7.5 mg 11/01/23 17:00 Warfarin 2.5 Mg Tablet PO DAILYC RYAN Discontinued Medications Generic Name Dose Route Start Last Admin Trade Name Viktoriya PRN Reason Stop Dose Admin Aripiprazole 2 mg 10/29/23 21:00 10/30/23 08:45 Aripiprazole 10 Mg Tablet PO 2 mg BID RYAN Administration Fentanyl Confirm 10/30/23 12:30 Fentanyl 100 Mcg/2 Ml Inj Administered 10/30/23 12:31 Dose 100 mcg .ROUTE .STK-MED ONE Sodium Chloride 1,000 mls @ 75 mls/hr 10/29/23 17:57 10/31/23 23:45 0.9 % Sodium Chloride 1000 Ml IV Infused .[id number] RYAN Infusion Piperacillin Sod/Tazobactam 100 mls @ 200 mls/hr 10/29/23 20:00 10/29/23 21:40 Sod 3.375 gm/ Sodium Chloride IVPB Infused Q6H RYAN Infusion Phytonadione 5 mg/ Sodium 50.5 mls @ 100 mls/hr 10/29/23 19:07 10/29/23 20:54 Chloride IVPB 10/29/23 19:37 Infused ONCE ONE Infusion Phytonadione 5 mg/ Sodium 50.5 mls @ 100 mls/hr 10/30/23 08:15 10/30/23 11:11 Chloride IVPB 10/30/23 08:45 Infused ONCE ONE Infusion Lidocaine HCl Confirm 10/30/23 12:30 Lidocaine 2% (Pf) 5 Ml Vial Administered 10/30/23 12:31 Dose 5 ml .ROUTE .STK-MED ONE Ondansetron HCl Confirm 10/30/23 12:30 Ondansetron 2 Mg/Ml Inj Administered 10/30/23 12:31 Dose 4 mg .ROUTE .STK-MED ONE Potassium Chloride 20 meq 10/30/23 08:00 10/31/23 08:09 Potassium Chloride 10 Meq Capsule Er PO 20 meq DAILYWM RYAN Administration Propofol Confirm 10/30/23 12:30 Propofol 10 Mg/Ml Inj Administered 10/30/23 12:31 Dose 200 mg IVP .STK-MED ONE Propofol Confirm 10/30/23 13:08 Propofol 10 Mg/Ml Inj Administered 10/30/23 13:09 Dose 200 mg IVP .STK-MED ONE Propofol Confirm 10/30/23 13:27 Propofol 10 Mg/Ml Inj Administered 10/30/23 13:28 Dose 200 mg IVP .STK-MED ONE Warfarin Sodium 5 mg 10/31/23 17:00 Warfarin 5 Mg Tablet PO DAILYC RYAN Warfarin Sodium 10 mg 10/31/23 09:45 10/31/23 10:48 Warfarin 5 Mg Tablet PO 10/31/23 09:46 10 mg ONCE@1700 ONE Administration Allergies Allergy/AdvReac Type Severity Reaction Status Date / Time metolazone Allergy Hives Verified 10/29/23 17:22 Sulfa (Sulfonamide Allergy Rash Verified 10/29/23 17:21 Antibiotics) levofloxacin AdvReac Confusion Verified 10/29/23 17:20 Objective - Infectious Disease Objective Vital Signs: Vital Signs - 24 hr 10/31/23 12:30 10/31/23 16:00 10/31/23 16:17 Temperature 98.5 F 97.3 F L Pulse Rate 90 Pulse Rate [Apical] 90 Pulse Rate [Pulse Oximeter] 92 Respiratory Rate 18 18 Blood Pressure [Left Arm] 138/75 97/49 L Pulse Oximetry 98 90 Oxygen Delivery Method Room Air Room Air 10/31/23 19:08 10/31/23 23:00 10/31/23 23:00 Temperature 98.1 F Pulse Rate 78 Pulse Rate [Apical] 96 Pulse Rate [Pulse Oximeter] 82 Respiratory Rate 16 16 Blood Pressure [Left Arm] 113/61 Pulse Oximetry 94 Oxygen Delivery Method Room Air 10/31/23 23:00 11/01/23 02:52 11/01/23 07:00 Temperature 97.9 F 98 F Pulse Rate Pulse Rate [Apical] Pulse Rate [Pulse Oximeter] 82 82 83 Respiratory Rate 16 18 18 Blood Pressure [Left Arm] 113/68 101/60 Pulse Oximetry 92 93 Oxygen Delivery Method Room Air Room Air 11/01/23 07:54 11/01/23 08:02 Temperature 98 F Pulse Rate 79 Pulse Rate [Apical] Pulse Rate [Pulse Oximeter] 83 Respiratory Rate 18 Blood Pressure [Left Arm] 99/56 L Pulse Oximetry 92 Oxygen Delivery Method Room Air Narrative: Patient was not seen or examined. Results - Infectious Disease Results Labs: Micro: 10/30 Buttock bone Aerobic cx: GNR, GPC Anaerobic cx: NGTD 10/30 L buttock deep wound Aerobic cx: GNR, GPC Anaerobic cx: NGTD 10/30 L buttock wound Aerobic cx: GNR, GNR#2, GPC Anaerobic cx: NGTD 10/29 BCx x2: NGTD 10/15 Buttock wound cx: Kleb pneumo (R ampicillin, otherwise S), coag neg Staph, alpha hemolytic Strep Laboratory Tests 11/01/23 10/31/23 10/30/23 Range/Units 06:04 06:07 11:28 WBC 7.17 9.28 (4.50-11.00) K/uL RBC 3.22 L 3.22 L (4.30-5.90) m/uL Hgb 9.4 L 9.5 L (13.5-17.5) gm/dL Hct 29.0 L 28.9 L (37.0-53.0) % MCV 90 90 (80-100) fL MCH 29 30 (26-34) pg MCHC 32 33 (32-36) gm/dL RDW Coeff of Eleazar (11.5-15.5) % Plt Count 274 283 (140-440) K/uL Neut % (Auto) (42.0-72.0) % Lymph % (Auto) (20-44) % Spink % (Auto) (0.0-11.0) % Eos % (Auto) (0.0-7.0) % Baso % (Auto) (0.0-3.0) % Neut # (Auto) (1.7-7.0) K/uL Lymph # (Auto) (0.90-2.90) K/uL Spink # (Auto) (0.00-0.90) K/UL Eos # (Auto) (0.00-0.50) K/uL Baso # (Auto) (0.00-0.30) K/uL Abs Immat Gran (auto) (0.00-0.30) K/uL Imm/Tot Granulo (auto) % INR 1.45 H 1.25 H 1.45 H (0.91-1.10) Sodium 139 133 L (135-149) mmol/L Potassium 3.4 L 3.5 L (3.6-5.1) mmol/L Chloride 103 99 (96-114) mmol/L Carbon Dioxide 27 26 (20-32) mmol/L Anion Gap 9 8 (7-15) mEq/L BUN 10 9 (7-30) mg/dL Creatinine 0.5 0.5 (0.5-1.5) mg/dL Estimated Creat Clear 61.86 61.86 Estimated GFR 105 105 ml/min Glucose 114 78 (60-115) mg/dL Lactate (0.5-1.9) mmol/L Calcium 8.2 L 8.1 L (8.4-10.6) mg/dL Magnesium (1.5-2.6) mg/dL Total Bilirubin (0.1-1.5) mg/dL AST (12-35) U/L ALT (4-50) U/L Alkaline Phosphatase (40-150) U/L C-Reactive Protein 16.3 H 21.7 H (0.5-1.0) mg/dL Total Protein (6.0-8.3) g/dL Albumin (3.3-5.0) g/dL Procalcitonin (<0.50) ng/mL Lab Acknowledgement 10/30/23 10/30/23 10/29/23 Range/Units 10:50 05:45 19:02 WBC 11.14 H (4.50-11.00) K/uL RBC 3.29 L (4.30-5.90) m/uL Hgb 9.7 L (13.5-17.5) gm/dL Hct 29.5 L (37.0-53.0) % MCV 90 (80-100) fL MCH 30 (26-34) pg MCHC 33 (32-36) gm/dL RDW Coeff of Eleazar (11.5-15.5) % Plt Count 278 (140-440) K/uL Neut % (Auto) (42.0-72.0) % Lymph % (Auto) (20-44) % Spink % (Auto) (0.0-11.0) % Eos % (Auto) (0.0-7.0) % Baso % (Auto) (0.0-3.0) % Neut # (Auto) (1.7-7.0) K/uL Lymph # (Auto) (0.90-2.90) K/uL Spink # (Auto) (0.00-0.90) K/UL Eos # (Auto) (0.00-0.50) K/uL Baso # (Auto) (0.00-0.30) K/uL Abs Immat Gran (auto) (0.00-0.30) K/uL Imm/Tot Granulo (auto) % INR 1.64 H (0.91-1.10) Sodium 132 L (135-149) mmol/L Potassium 3.8 (3.6-5.1) mmol/L Chloride 96 (96-114) mmol/L Carbon Dioxide 26 (20-32) mmol/L Anion Gap 10 (7-15) mEq/L BUN 11 (7-30) mg/dL Creatinine 0.6 (0.5-1.5) mg/dL Estimated Creat Clear 61.86 Estimated GFR 99 ml/min Glucose 92 (60-115) mg/dL Lactate 1.1 (0.5-1.9) mmol/L Calcium 8.3 L (8.4-10.6) mg/dL Magnesium 2.1 (1.5-2.6) mg/dL Total Bilirubin (0.1-1.5) mg/dL AST (12-35) U/L ALT (4-50) U/L Alkaline Phosphatase (40-150) U/L C-Reactive Protein 24.3 H (0.5-1.0) mg/dL Total Protein (6.0-8.3) g/dL Albumin (3.3-5.0) g/dL Procalcitonin (<0.50) ng/mL Lab Acknowledgement Test Added 10/29/23 10/29/23 Range/Units 18:45 18:18 WBC 13.78 H (4.50-11.00) K/uL RBC 3.73 L (4.30-5.90) m/uL Hgb 11.0 L (13.5-17.5) gm/dL Hct 33.4 L (37.0-53.0) % MCV 90 (80-100) fL MCH 30 (26-34) pg MCHC 33 (32-36) gm/dL RDW Coeff of Eleazar 13.4 (11.5-15.5) % Plt Count 300 (140-440) K/uL Neut % (Auto) 82.2 H (42.0-72.0) % Lymph % (Auto) 7.5 L (20-44) % Spink % (Auto) 9.2 (0.0-11.0) % Eos % (Auto) 0.3 (0.0-7.0) % Baso % (Auto) 0.1 (0.0-3.0) % Neut # (Auto) 11.30 H (1.7-7.0) K/uL Lymph # (Auto) 1.00 (0.90-2.90) K/uL Spink # (Auto) 1.30 H (0.00-0.90) K/UL Eos # (Auto) 0.00 (0.00-0.50) K/uL Baso # (Auto) 0.00 (0.00-0.30) K/uL Abs Immat Gran (auto) 0.10 (0.00-0.30) K/uL Imm/Tot Granulo (auto) 0.7 % INR 2.73 H (0.91-1.10) Sodium 133 L (135-149) mmol/L Potassium 4.2 (3.6-5.1) mmol/L Chloride 94 L (96-114) mmol/L Carbon Dioxide 30 (20-32) mmol/L Anion Gap 9 (7-15) mEq/L BUN 14 (7-30) mg/dL Creatinine 0.6 (0.5-1.5) mg/dL Estimated Creat Clear 61.86 Estimated GFR 99 ml/min Glucose 164 H (60-115) mg/dL Lactate (0.5-1.9) mmol/L Calcium 8.6 (8.4-10.6) mg/dL Magnesium (1.5-2.6) mg/dL Total Bilirubin 0.4 (0.1-1.5) mg/dL AST 44 H (12-35) U/L ALT 63 H (4-50) U/L Alkaline Phosphatase 130 (40-150) U/L C-Reactive Protein 24.5 H (0.5-1.0) mg/dL Total Protein 7.1 (6.0-8.3) g/dL Albumin 3.7 (3.3-5.0) g/dL Procalcitonin 0.18 (<0.50) ng/mL Lab Acknowledgement Test Added Impression & Recommendations Recommendations Impression & Recommendations: Abx: Vanc 10/29 - present Pip-tazo 10/29 - present Problems: #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 He has a history of flap on the R which is healed. Developed a L buttock pressure wound in August, for which he follows with the wound clinic. He had an outpatient wound culture collected on 10/15 in the setting of necrotic tissue/drainage which grew Kleb pneumo, coag neg Staph, alpha hemolytic Strep. Pt was started on ceftriaxone daily on 10/22. A CT pelvis with contrast on 10/23 showed a L perineal soft tissue ulcer extending to the L posterior iliac bone with associated osteomyelitis. At his follow-up wound care visit on 10/29, provider noticed foul odor, change in wound, and there was concern pt was failing outpatient IV antibiotics and needed surgical intervention, so he was sent to the ED. On presentation, pt was afebrile, VSS, though became febrile to 100.5 on 10/30. Labs showed WBC 13.78, CRP 24.5. Pt was started on empiric vanc, pip- tazo. He was taken to the OR on 10/30 and underwent debridement down to bone of L ischial pressure ulcer. There is plan for a wound vac. OR tissue and bone cultures are growing GNRs and GPCs. Team is requesting IV antibiotic recommendations for osteomyelitis, as the pt is likely to discharge today. Per primary team, provider will be able to follow-up non-finalized cultures next week and adjust antibiotics as needed. He has a PICC line in place. On review of wound pictures/note from 10/22, this is a ~2.1 x 2.2 cm open wound that tunnels down to bone. Given that this is a relatively new pressure ulcer which team hopes with wound care will achieve bone coverage, it is reasonable to treat with 6 week course of IV antibiotics. Recommendations: -Ok to discharge pt on daptomycin 650 mg IV q24h (~8 mg/kg dosed by ABW 82 kg, given BMI>30) plus ertapenem 1 g q24h pending 10/30 culture finalization. These antibiotics may need to be changed post-discharge based on final culture data (such as discontinuation of daptomycin if no MRSA/Enterococcus, or narrowing to ceftriaxone, etc). Note that ertapenem does not cover Pseudomonas. -Would check weekly CBC with diff, CMP, CK while on above antibiotics to monitor for toxicity -Treat for 6 week course from 10/30/23 - 12/10/23. -Continue good wound care. If unable to achieve bone coverage, may need evaluation for a flap. If this develops into a chronic osteomyelitis with bone that is continuously exposed to the environment, then prolonged courses of antibiotics will not be helpful as they will contribute to antibiotic resistance and place pt at risk for adverse effects such as C diff Discussed with hospitalist. Will sign off. Please page [facility] Call Center with further questions.
--- NOTE | 2023-11-01 12:15 | PM.EN ---
Chart Event Note Date Seen: 11/01/23 Chart Event Note: wound left ischial tuberosity stage iv dec ulcer POD 2 bedside ongoing debridement
--- NOTE | 2023-11-01 12:16 | PM.EN ---
Chart Event Note Date Seen: 11/01/23 Chart Event Note: bedside debridement ongoing stage IV left buttock decub ulcer left ischial tuberosity exposed
--- NOTE | 2023-11-01 12:37 | PM.GSPN ---
Subjective Subjective Date Seen: 11/01/23 Interval history: Jeff is stable. No updates overnight. Exam Narrative: Exam Narrative: General: No acute distress Wound: Wound remains with greenish slough/necrosis at wound base. This was debrided sharply again today. There was healthy bleeding tissue just below; the necrosis did not extend deep. Periwound redness appears mildly better today. Const: Vital Signs, click to edit/add: Vital Signs - 24 hr 10/31/23 16:00 10/31/23 16:17 10/31/23 19:08 Temperature 97.3 F L 98.1 F Pulse Rate 90 Pulse Rate [Apical ] 90 96 Pulse Rate [Pulse Oximeter] Respiratory Rate 18 16 Blood Pressure [Le ft Arm] 97/49 L 113/61 Pulse Oximetry 90 94 Oxygen Delivery Me thod Room Air Room Air 10/31/23 23:00 10/31/23 23:00 10/31/23 23:00 Temperature 97.9 F Pulse Rate 78 Pulse Rate [Apical ] Pulse Rate [Pulse Oximeter] 82 82 Respiratory Rate 16 16 Blood Pressure [Le ft Arm] 113/68 Pulse Oximetry 92 Oxygen Delivery Me thod Room Air 11/01/23 02:52 11/01/23 07:00 11/01/23 07:54 Temperature 98 F 98 F Pulse Rate Pulse Rate [Apical ] Pulse Rate [Pulse Oximeter] 82 83 83 Respiratory Rate 18 18 18 Blood Pressure [Le ft Arm] 101/60 99/56 L Pulse Oximetry 93 92 Oxygen Delivery Me thod Room Air Room Air 11/01/23 08:02 11/01/23 12:13 Temperature 98.7 F Pulse Rate 79 Pulse Rate [Apical ] Pulse Rate [Pulse Oximeter] 81 Respiratory Rate 18 Blood Pressure [Le ft Arm] 153/80 H Pulse Oximetry 91 Oxygen Delivery Me thod Room Air Labs/Imaging Labs Labs: White blood cell count remains normal. CRP is trending down. Cultures are still pending. Progress Note: A&P Assessment and plan (1) Chronic anticoagulation: Problem details: hx of DVT. 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 Continues to show greenish bowel biofilm/slough. This is fairly easily debrided and superficial. Will continue with b.i.d. wound cares. Will likely plan on cleansing wound tomorrow again with chlorhexidine scrub brush if there is continued exudate/biofilm on the wound. Continue broad antibiotics. Once the wound is stable and there is a plan for antibiotic coverage. Patient will likely discharge home. Plan is already been established to eventually place a wound VAC once patient is stable in the outpatient setting. Anticipate 1-2 more days at least in the hospital to ensure that the wound is stable.
--- NOTE | 2023-11-01 12:57 | PC.NURSE ---
Post-debridement and cauterization on 11/01/[address] Fortune
[2023-11-01] MEDS: LORazepam 0.5 MG TABLET PO (13:13)
--- NOTE | 2023-11-01 14:13 | PC.SOCIAL ---
Addendum entered by FAUSTINO Ramirez 11/01/23 14:55: Discharge planning: leather worker received a call from [facility] sharing that pt's came down to talk to them about getting the pt into the clinic to be seen later next week if pt does discharge home on the from the hospital. Pt's stated she is comfortable doing the dressing changes at home after discharge, but has concerns about knowing if the wound is healing properly and not having someone available to look at it. Pt's stated that she would take pt to the Emergency Room if she has concerns with how the wound is looking at home after discharge. Pt's shared again that she was skeptical about having pt go to a SNF. leather worker will continue to work on a safe discharge plan for pt. Social work to follow-up as needed. Original Note: Discharge planning: leather worker spoke with pt's this afternoon. leather worker asked pt's if she would be comfortable doing pt's wound care and dressing changes at home, if pt does discharge on the 05 of November until Home Care can open pt on November 14. Pt's shared she felt skeptical about doing pt's wound care at home from 11/05-11/14 by herself, as she might not know if something may be going wrong with the wound or it's not healing correctly and she would not have anyone to consult with. leather worker then asked pt's what her thoughts were about sending pt to a SNF after discharge. Pt's was also skeptical about this option, as she has not heard good reviews about some of the more local nursing homes. Pt's was going to check-in with the [facility] to see if they might possibly be able to see pt's next Saturday for an outpatient appointment, as she said this would make her feel better if someone could check the wound before another long weekend and then Home Care could open him for services on November 14. Pt's said that pt might already have an outpatient appointment scheduled for November 12 from before and she was also going to check on that when she stopped in at the [facility]. Social work to follow-up as needed.
[2023-11-01] MEDS: 5 % DEXTROSE/0.9% SOD CHLORIDE 1,000 ML 75 ML IV (17:46)
[2023-11-01] MEDS: WARFARIN 2.5 MG TABLET 7.5 MG PO (17:46)
--- NOTE | 2023-11-01 19:31 | PC.NURSE ---
Shift [id number]: Pt noted to be alert & oriented to correct person, place and time. He did take some time to realize correct time this morning though he had just woken up and believed he was at home until he saw the hospital ceiling and remembered he was currently in the hospital. Staff provide repositioning Q2H due to hx of paraplegia. Pt has been NPO for most of the shift as it was uncertain if pt would need to go to OR for debridement though MD Fortune was able to complete debridement procedure at bedside today. has been present for most of the shift. Pt continues on D5NS at 75 mL/hr and remains on antibiotic therapy per orders. PICC remains in place to [facility] with dressing change completed today. Arm circumference measures approximately 36 cm and external catheter length noted to be 1 cm. Staff requested PICC insertion record from [facility] in [place] after consent form signed by patient?s as reported PICC was placed at [facility]. B/P noted to be trending lower this morning at 99/56. Office Service Coordinator contacted MD Lundy before giving AM dose of Lasix and Amlodipine- then ordered Amlodipine to be put on hold and advised for pt to take other AM medications with sip of water due to NPO status this morning. He is on bedrest at this time per pt request to provide most comfort for stage IV wound. Pt has been afebrile throughout the shift. [place] Cruz catheter remains in place with 3250 urinary output noted on day shift. Pt ate 75% of supper this evening and has resumed Diabetic diet. ?
[2023-11-01] MEDS: ENOXAPARIN 40 MG/0.4 ML INJ SUBCUT (20:36)
[2023-11-01] MEDS: DONEPEZIL 5 MG TABLET PO (20:36)
[2023-11-01] MEDS: LORazepam 1 MG TABLET PO (20:36)
[2023-11-01] MEDS: ATORVASTATIN CALCIUM 40 MG TABLET PO (20:36)
[2023-11-01] MEDS: SODIUM CHLORIDE 0.9 % (FLUSH) 10 ML SYRINGE 5 ML IVF (20:39)
[2023-11-02 03:00] VITALS: BP 107/60; PULSE 78; RESP 16; TEMP 36.8; O2SAT 95
[2023-11-02] MEDS: PIPERACILLIN/TAZOBACTAM 3.375 GM in 0.9 % SODIUM CHLORIDE Mini-bag 100 ML IVPB ×4 (03:00→19:26)
--- NOTE | 2023-11-02 06:51 | PC.NURSE ---
NURSE NOTE : Pt was confused overnight, pt agitated during his dressing change and stated I don't have a wound, this isn't right. Pt reoriented that he was at the hospital being treated for his wound on his buttock and he settled down for a bit. However during the night pt remained confused, he tore off his tele x2, tore off his ostomy bag and was taking his clothes off while stating I'm just trying to get my bridges on. Pt VSS on RA, denies pain/SOB/CP/N&V. Pt turned and repositioned with 2 assist Q2H. Catheter patent and draining large amounts of clear, yellow urine. HS blood sugar was 210.
[2023-11-02 07:00] VITALS: BP 136/72; PULSE 79; PULSE 83; RESP 18; TEMP 36.5; O2SAT 95
[2023-11-02 07:05] LABS: Hematocrit 30.8 % (37.0-53.0); Hemoglobin* 9.9 gm/dL (13.5-17.5); Mean Corpuscular HGB Conc 32 gm/dL (32-36); Mean Corpuscular Hemoglobin 29 pg (26-34); Mean Corpuscular Volume 91 fL (80-100); Platelet Count* 319 K/uL (140-440); White Blood Count* 7.28 K/uL (4.50-11.00)
[2023-11-02 07:11] LABS: Slide Review Reflex No
[2023-11-02 07:19] LABS: INR 1.65 (0.91-1.10); Prothrombin Time 20.6 Seconds
[2023-11-02 07:37] LABS: Chloride* 101 mmol/L (96-114); Potassium* 3.5 mmol/L (3.6-5.1); Sodium* 137 mmol/L (135-149)
[2023-11-02 07:39] LABS: Creatinine* 0.6 mg/dL (0.5-1.5); Est. Creatinine Clearance* 61.86; Estimated Glomerular Filt Rate 99 ml/min
[2023-11-02 07:40] LABS: Anion Gap 8 mEq/L (7-15); Blood Urea Nitrogen* 8 mg/dL (7-30); Carbon Dioxide* 28 mmol/L (20-32)
[2023-11-02 07:41] LABS: Calcium* 8.4 mg/dL (8.4-10.6); Glucose* 106 mg/dL (60-115)
[2023-11-02] MEDS: FUROSEMIDE 40 MG TABLET PO (08:28)
[2023-11-02] MEDS: DULOXETINE 30 MG CAPSULE DR 60 MG PO ×2 (08:40→20:55)
[2023-11-02] MEDS: buPROPion HCL SR 150 MG TAB PO ×2 (08:40→20:54)
[2023-11-02] MEDS: FAMOTIDINE 20 MG TABLET PO (08:40)
[2023-11-02] MEDS: OXYCODONE 5 MG TABLET 10 MG PO ×3 (08:40→18:51)
[2023-11-02] MEDS: ARIPiprazole 10 MG TABLET 2.5 MG PO ×2 (08:41→20:58)
[2023-11-02] MEDS: POTASSIUM CHLORIDE 10 MEQ CAPSULE ER 20 MEQ PO ×2 (08:41→20:54)
[2023-11-02] MEDS: MAGNESIUM HYDROXIDE 30 ML ORAL.SUSP 15 ML PO (08:42)
[2023-11-02] MEDS: 5 % DEXTROSE/0.9% SOD CHLORIDE 1,000 ML 75 ML IV (08:42)
[2023-11-02] MEDS: BACLOFEN 10 MG TABLET 40 MG PO ×3 (08:44→20:55)
[2023-11-02] MEDS: GABAPENTIN 100 MG CAPSULE 400 MG PO ×3 (08:44→20:55)
[2023-11-02 08:54] LABS: C Reactive Protein* 11.7 mg/dL (0.5-1.0)
--- NOTE | 2023-11-02 10:31 | PM.GSPN ---
Subjective Subjective Date Seen: 11/02/23 Interval history: Jeff is doing well. No fevers. No other updates today. Exam Narrative: Exam Narrative: General: No acute distress Skin: Left ischial wound examined. Exudate/biofilm today is much improved. This was debrided with a chlorhexidine sponge. There is healthy bleeding tissue throughout the wound. Const: Vital Signs, click to edit/add: Vital Signs - 24 hr 11/01/23 12:13 11/01/23 15:00 11/01/23 15:06 Temperature 98.7 F Pulse Rate 84 Pulse Rate [Apical ] Pulse Rate [Pulse Oximeter] 81 90 Respiratory Rate 18 18 Blood Pressure [Le ft Arm] 153/80 H Pulse Oximetry 91 Oxygen Delivery Me thod Room Air 11/01/23 15:54 11/01/23 19:00 11/01/23 23:00 Temperature 97.3 F L 98.6 F Pulse Rate Pulse Rate [Apical ] Pulse Rate [Pulse Oximeter] 90 68 Respiratory Rate 18 16 16 Blood Pressure [Le ft Arm] 102/58 L 135/47 L Pulse Oximetry 95 95 Oxygen Delivery Me thod Room Air Room Air 11/01/23 23:00 11/01/23 23:00 11/02/23 03:00 Temperature 98.4 F 98.3 F Pulse Rate 84 Pulse Rate [Apical ] Pulse Rate [Pulse Oximeter] 84 78 Respiratory Rate 16 16 Blood Pressure [Le ft Arm] 111/64 107/60 Pulse Oximetry 96 95 Oxygen Delivery Me thod Room Air Room Air 11/02/23 07:00 11/02/23 07:00 11/02/23 07:00 Temperature 97.7 F Pulse Rate 83 Pulse Rate [Apical ] 79 79 Pulse Rate [Pulse Oximeter] Respiratory Rate 18 18 Blood Pressure [Le ft Arm] 136/72 Pulse Oximetry 95 Oxygen Delivery Me thod Room Air Labs/Imaging Labs Labs: White blood cell count remains normal. CRP is 11 from 16. Cultures are still pending. 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 Vit K x 2 back on warfarin; VTE lovenox bridge Status: Acute Plan Jeff is doing well today. Wound looks better today. Labs are also improved today. -continue b.i.d. wet-to-dry dressing changes. Will have nursing scrubbed with chlorhexidine scrub brush with dressing changes. -awaiting cultures to determine antibiotic sensitivities.
[2023-11-02 11:00] VITALS: BP 121/63; PULSE 80; RESP 16; TEMP 36.7; O2SAT 94
[2023-11-02] MEDS: LORazepam 0.5 MG TABLET PO (13:30)
[2023-11-02 15:00] VITALS: BP 128/73; PULSE 88; PULSE 94; RESP 16; TEMP 36.6; O2SAT 95
--- NOTE | 2023-11-02 15:50 | PM.IMPN1 ---
Progress Note: A&P Assessment and plan (1) Pressure ulcer of left buttock, stage 4: Problem details: -POD 2 wound debridement - left buttock, ischial spine -continue broad spectrum abx, narrow with new cultures -CRP downtrending, WBC normalized -ID CONNECT CONSULT PLACED AM OF 11/01 (despite not having all cultures back) Continue current antibiotic therapy for 2 week treatment. Current plan is to treat for 2 weeks until wound granulate over than consider 6 week course of curative therapy for osteomyelitis or surgery for placement of a flap. Status: Chronic (2) Diabetes mellitus type 2 in nonobese: Problem details: -diet controlled, no longer insulin-dependent -achs glucose checks Status: Chronic (3) Hypertension: Problem details: -continue amlodipine, reports historically blood pressures are higher in the morning and in the evening Status: Chronic (4) Chronic pain syndrome: Problem details: -continue scheduled home medications to avoid withdrawal -monitor for sedation, delirium while hospitalized -has a spinal cord stimulator in place Status: Chronic (5) Lymphedema: Problem details: -bilateral lower extremity wraps, continue Lasix Status: Chronic (6) COPD (chronic obstructive pulmonary disease): Problem details: -stable, encourage postoperative pulmonary hygiene, incentive spirometry Status: Chronic (7) History of DVT (deep vein thrombosis): Problem details: -on chronic anticoagulation. 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 Monitor and manage Status: Chronic (10) Chronic anticoagulation: Problem details: hx of DVT. 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 Continue to coordinate with surgery for wound debridement and wound care. Continue to work with sr. social media & mobile manager and outpatient resources for plan of care for discharge. Time Spent With Patient Total time spent: Total time spent today is 55 minutes, 30 minutes in coordination of care and discussing with patient and other providers ongoing evaluation management of decubitus ulcers are and osteomyelitis and disposition Subjective Date Seen: 11/02/23 Interval history: 78-year-old male with diabetes mellitus and paraplegia admitted to the hospital with worsening infection in an ulcer in his left buttock and osteomyelitis in his left ischial spine. Surgery consultation led to a surgical debridement. He has been treated since admission on October 29 with vancomycin and Zosyn. Prior to that he had a week of ceftriaxone 2 g daily as outpatient IV therapy for Klebsiella infection. Wound cultures obtained on October 30 have grown out Klebsiella pneumonia, Pseudomonas aeruginosa, Enterococcus gallinarum. Klebsiella is sensitive to everything but ampicillin. Pseudomonas is sensitive to the usual and a pseudomonal drugs including Zosyn. Enterococcus is sensitive to ampicillin but not vancomycin. He has been clinically improving through his hospital stay. He is getting daily wound debridement with surgery. Last night nursing staff reported that he was having some delirium. This morning that has apparently resolved. Today he reports no new concerns. Exam Narrative: Exam Narrative: He is alert and appears in no distress. He is oriented to being in the hospital. Respirations are clear to auscultation. Cardiovascular: S1, S2, regular rate and rhythm. Abdomen is soft he has a left lower quadrant colostomy with moderate amount of formed stool. Parastomal hernia which is nontender. Some edema of his external genitalia. Indwelling catheter. Left buttock has a and ulcer which appears similar to the pictures obtained yesterday but improvement in fibrin is exudate at the base of the wound. Const: Vital Signs, click to edit/add: Vital Signs - 24 hr 11/01/23 15:54 11/01/23 19:00 11/01/23 23:00 Temperature 97.3 F L 98.6 F Pulse Rate Pulse Rate [Apical ] Pulse Rate [Pulse Oximeter] 90 68 Respiratory Rate 18 16 16 Blood Pressure [Le ft Arm] 102/58 L 135/47 L Pulse Oximetry 95 95 Oxygen Delivery Me thod Room Air Room Air 11/01/23 23:00 11/01/23 23:00 11/02/23 03:00 Temperature 98.4 F 98.3 F Pulse Rate 84 Pulse Rate [Apical ] Pulse Rate [Pulse Oximeter] 84 78 Respiratory Rate 16 16 Blood Pressure [Le ft Arm] 111/64 107/60 Pulse Oximetry 96 95 Oxygen Delivery Me thod Room Air Room Air 11/02/23 07:00 11/02/23 07:00 11/02/23 07:00 Temperature 97.7 F Pulse Rate 83 Pulse Rate [Apical ] 79 79 Pulse Rate [Pulse Oximeter] Respiratory Rate 18 18 Blood Pressure [Le ft Arm] 136/72 Pulse Oximetry 95 Oxygen Delivery Me thod Room Air 11/02/23 11:00 11/02/23 15:00 11/02/23 15:00 Temperature 98.1 F 97.8 F Pulse Rate Pulse Rate [Apical ] Pulse Rate [Pulse Oximeter] 80 94 94 Respiratory Rate 16 16 16 Blood Pressure [Le ft Arm] 121/63 128/73 Pulse Oximetry 94 95 Oxygen Delivery Me thod Room Air Room Air Documenting provider has reviewed patient's vital signs: yes Labs Labs: Laboratory Results - last 24 hr 11/02/23 06:17 WBC 7.28 RBC 3.40 L Hgb 9.9 L Hct 30.8 L MCV 91 MCH 29 MCHC 32 Plt Count 319 INR 1.65 H Sodium 137 Potassium 3.5 L Chloride 101 Carbon Dioxide 28 Anion Gap 8 BUN 8 Creatinine 0.6 Estimated Creat Clear 61.86 Estimated GFR 99 Glucose 106 Calcium 8.4 C-Reactive Protein 11.7 H
--- NOTE | 2023-11-02 15:57 | W.PM.CROSSCO ---
Subjective Subjective Time Seen by Provider: 15:50 Date Seen: 11/02/23 Interval history: Nurse asked me to see patient for scrotal swelling. According to the nurse, this was not present earlier today. He sat in the chair this afternoon for about two hours and when they moved him back to the bed, his noticed he had swelling of his foreskin and scrotum that she had not noticed previously and brought it to his nurse's attention. Jeff denies SOB. He takes daily oral lasix at home and has been getting the same here. His IVF were stopped today. Objective Objective Data Details: General: NAD, AAO. Breathing comfortable. Responds verbally without difficulty. Lungs: CTAB. : 3+ edema of Foreskin and scrotum. Extremities: 2+ dependent edema up to buttocks bilaterally. Assessment and Plan Assessment and plan (1) Scrotal swelling: Problem comment: Dependent edema due to IVF (now stopped) and probable malnourishment. Give lasix 40 mg IV once now. Continue to monitor I/Os and daily weights. Continue daily oral furosemide. Continue nutritional supplementation. 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
[2023-11-02] MEDS: WARFARIN 2.5 MG TABLET 7.5 MG PO (16:37)
[2023-11-02] MEDS: FUROSEMIDE 10 MG/ML inj 40 MG IVP (16:37)
--- NOTE | 2023-11-02 18:39 | PC.NURSE ---
End of Shift: Patient pleasant and cooperative. Alert to self and place. Afebrile. Denies pain. Dressing to buttock changed by MD. Frequent turn and reposition. Up to chair with 2 assist and ceiling lift. Tolerating regular diet with no nausea. SP catheter patent. Colostomy bag changed x1. Swelling noted to penis/scrotum and thighs this afternoon, updated MD and in to see pt, Lasix ordered.
[2023-11-02 19:15] VITALS: BP 125/73; PULSE 98; RESP 16; TEMP 36.8; O2SAT 95
[2023-11-02] MEDS: ENOXAPARIN 40 MG/0.4 ML INJ SUBCUT (20:54)
[2023-11-02] MEDS: LORazepam 1 MG TABLET PO (20:54)
[2023-11-02] MEDS: ATORVASTATIN CALCIUM 40 MG TABLET PO (20:54)
[2023-11-02] MEDS: DONEPEZIL 5 MG TABLET PO (20:54)
[2023-11-02] MEDS: SODIUM CHLORIDE 0.9 % (FLUSH) 10 ML SYRINGE 5 ML IVF (21:06)
[2023-11-03] VITALS: BP 95/59; PULSE 83; PULSE 95; RESP 16; O2SAT 95
[2023-11-03] MEDS: OXYCODONE 5 MG TABLET 10 MG PO ×4 (00:16→18:05)
[2023-11-03] MEDS: SODIUM CHLORIDE 0.9 % (FLUSH) 10 ML SYRINGE 5 ML IVF ×4 (02:14→20:39)
[2023-11-03] MEDS: PIPERACILLIN/TAZOBACTAM 3.375 GM in 0.9 % SODIUM CHLORIDE Mini-bag 100 ML IVPB ×4 (02:14→20:13)
[2023-11-03 06:41] LABS: Hematocrit 31.3 % (37.0-53.0); Mean Corpuscular HGB Conc 32 gm/dL (32-36); Mean Corpuscular Hemoglobin 29 pg (26-34); Mean Corpuscular Volume 91 fL (80-100); Platelet Count* 316 K/uL (140-440); Red Blood Count 3.44 m/uL (4.30-5.90); White Blood Count* 7.34 K/uL (4.50-11.00)
[2023-11-03 06:47] LABS: Slide Review Reflex No
[2023-11-03 06:57] LABS: INR 2.21 (0.91-1.10); Prothrombin Time 26.2 Seconds
[2023-11-03 06:59] LABS: Chloride* 100 mmol/L (96-114); Potassium* 3.5 mmol/L (3.6-5.1); Sodium* 138 mmol/L (135-149)
[2023-11-03 07:02] LABS: Creatinine* 0.6 mg/dL (0.5-1.5); Est. Creatinine Clearance* 61.86; Estimated Glomerular Filt Rate 99 ml/min
[2023-11-03 07:03] LABS: Anion Gap 8 mEq/L (7-15); Blood Urea Nitrogen* 14 mg/dL (7-30); Calcium* 8.4 mg/dL (8.4-10.6); Carbon Dioxide* 30 mmol/L (20-32); Glucose* 87 mg/dL (60-115)
[2023-11-03 07:06] LABS: C Reactive Protein* 6.3 mg/dL (0.5-1.0)
[2023-11-03 07:34] VITALS: PULSE 82
[2023-11-03] MEDS: FUROSEMIDE 40 MG TABLET PO (07:56)
[2023-11-03] MEDS: BACLOFEN 10 MG TABLET 40 MG PO ×3 (09:19→20:29)
[2023-11-03] MEDS: DULOXETINE 30 MG CAPSULE DR 60 MG PO ×2 (09:20→20:28)
[2023-11-03] MEDS: FAMOTIDINE 20 MG TABLET PO (09:20)
[2023-11-03] MEDS: ARIPiprazole 10 MG TABLET 2.5 MG PO ×2 (09:21→20:30)
[2023-11-03] MEDS: buPROPion HCL SR 150 MG TAB PO ×2 (09:21→20:27)
[2023-11-03] MEDS: GABAPENTIN 100 MG CAPSULE 400 MG PO ×3 (09:47→20:28)
[2023-11-03] MEDS: POTASSIUM CHLORIDE 10 MEQ CAPSULE ER 20 MEQ PO ×2 (09:48→20:28)
[2023-11-03 12:00] VITALS: BP 151/77; PULSE 90; RESP 20; TEMP 36.8; O2SAT 97
[2023-11-03] MEDS: LORazepam 0.5 MG TABLET PO (13:09)
--- NOTE | 2023-11-03 16:03 | PC.NURSE ---
Pt eval by this am who discussed extensively the plan of care for this patient with his family at bedside. Pt had 1190 in orally and 1900 out after PO lasix provided. Tele indicates NSR. BG 87 at [facility] and pt provided with apple juice mixed with one pack of sugar. At lunch time BG 190, pt takes oral hypoglycemics, no SS insulin ordered. Pt's changed his ostomy bag, 350 cc of loose stool. Suprapubic catheter patent and draining. Wound care provided, Dr. Gamble and pt's present to observe the wound @ 1349 pm. Pt is paraplegic and needs repositioning Q 2 hours ATC. Pt has no dysphagia with meds, adequate appetite. Report to Stephanie Tello oncoming shift RN, Dr. Fortune present on the med/surg floor to observe patient's wound and redress the IT site with oncoming RN.
--- NOTE | 2023-11-03 16:04 | PM.GSPN ---
Subjective Subjective Date Seen: 11/03/23 Interval history: Jeff is stable. Wound was changed by RN this morning. No updates. Exam Narrative: Exam Narrative: General: No acute distress Skin: Left ischial tuberosity wound looks much better today. Minimal areas of necrosis in the areas of tendon/muscle. Mostly red granulation tissue present. PeriWound redness has improved. Const: Vital Signs, click to edit/add: Vital Signs - 24 hr 11/02/23 19:15 11/03/23 00:00 11/03/23 00:00 Temperature 98.2 F Pulse Rate 83 Pulse Rate [Apical ] 98 Pulse Rate [Pulse Oximeter] 95 Respiratory Rate 16 16 Blood Pressure [Le ft Arm] 125/73 Pulse Oximetry 95 Oxygen Delivery Me thod Room Air 11/03/23 00:00 11/03/23 07:34 11/03/23 12:00 Temperature 98.2 F Pulse Rate 82 Pulse Rate [Apical ] 90 Pulse Rate [Pulse Oximeter] 95 90 Respiratory Rate 16 20 Blood Pressure [Le ft Arm] 95/59 L 151/77 H Pulse Oximetry 95 97 Oxygen Delivery Me thod Room Air Room Air Labs/Imaging Labs Labs: White blood cell count remains normal. CRP is down to 6 from 11 Cultures returned growing Pseudomonas, VRE and Klebsiella. Progress Note: A&P Assessment and plan (1) Chronic anticoagulation: Problem details: hx of DVT. Vit K x 2 back on warfarin; VTE lovenox bridge Status: Acute (2) Pressure ulcer of left buttock, stage 4: Problem details: -POD 2 wound debridement - left buttock, ischial spine -continue broad spectrum abx, narrow with new cultures -CRP downtrending, WBC normalized -ID CONNECT CONSULT PLACED AM OF 11/01 (despite not having all cultures back) Continue current antibiotic therapy for 2 week treatment. Current plan is to treat for 2 weeks until wound granulate over than consider 6 week course of curative therapy for osteomyelitis or surgery for placement of a flap. 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 Infection seems to be under control at this point. We now have culture and susceptibilities back. Waiting on ID consult for final determination of antibiotic course. Anticipate he will remain inpatient over the holiday weekend. On Saturday if we are able to get him on 11/11 stay outpatient IV antibiotic regimen that he could potentially discharge home. -continue b.i.d. dressing changes with Vashe while inpatient -once patient is able to discharge home we will plan on daily dressing changes. His should be able to do this while home care and wound clinic follow-up is established. -discussed case with the wound clinic. They have ordered a wound VAC for him. This will be placed as an outpatient. Once his wound is stable I think he would be an excellent candidate for wound VAC.
[2023-11-03 16:25] VITALS: BP 157/86; PULSE 86; PULSE 89; RESP 18; TEMP 36.7; O2SAT 96
[2023-11-03] MEDS: WARFARIN 2.5 MG TABLET 7.5 MG PO (17:20)
--- NOTE | 2023-11-03 18:46 | PM.IMPN1 ---
Progress Note: A&P Assessment and plan (1) Pressure ulcer of left buttock, stage 4: Problem details: -POD 2 wound debridement - left buttock, ischial spine -continue broad spectrum abx, narrow with new cultures -CRP downtrending, WBC normalized -ID CONNECT CONSULT PLACED AM OF 11/01 (despite not having all cultures back) Continue current antibiotic therapy for 2 week treatment. Current plan is to treat for 2 weeks until wound granulate over than consider 6 week course of curative therapy for osteomyelitis or surgery for placement of a flap. Status: Chronic (2) Osteomyelitis: Problem details: Culture growing Klebsiella and Enterococcus. Also Pseudomonas infection on wound culture. All 3 of these appear sensitive to Zosyn and Levaquin. Status: Acute (3) Chronic anticoagulation: Problem details: hx of DVT. 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 Elevate scrotum as needed and continue diuretics and monitor weight and volume status Status: Acute Plan Continue course of antibiotic treatment for cellulitis and osteomyelitis. Continue good wound care. Work with family, foster care social worker, Infectious Disease to develop a good outpatient plan. Met with family today and discussed plan of care in detail. Total time spent today is 55 minutes, 40 minutes in coordination of care and discussing with patient, family and other providers management of osteomyelitis and wound care in the context of paraplegia Subjective Date Seen: 11/03/23 Interval history: 78-year-old male with diabetes mellitus and paraplegia admitted to the hospital with worsening infection in an ulcer in his left buttock and osteomyelitis in his left ischial spine. Surgery consultation led to a surgical debridement. He has been treated since admission on October 29 with vancomycin and Zosyn. Prior to that he had a week of ceftriaxone 2 g daily as outpatient IV therapy for Klebsiella infection. Wound cultures obtained on October 30 have grown out Klebsiella pneumonia, Pseudomonas aeruginosa, Enterococcus gallinarum. Klebsiella is sensitive to everything but ampicillin. Pseudomonas is sensitive to the usual and a pseudomonal drugs including Zosyn. Enterococcus is sensitive to ampicillin but not vancomycin. He has been clinically improving through his hospital stay. He is getting daily wound debridement with surgery. Night of November 01 he had some delirium. No documented episodes since that time. Night of November 02 he was noted to have increasing edema. He was given IV furosemide. IV fluids were stopped as well. He reports doing well today. Exam Narrative: Exam Narrative: He is alert and pleasant and in no distress. Respirations are clear to auscultation. Cardiovascular: S1, S2, regular rate and rhythm. Abdomen is soft without tenderness. Buttock wound is inspected and appears unchanged from yesterday. He still has moderate amount of scrotal edema. Lower extremities with trace edema. Const: Vital Signs, click to edit/add: Vital Signs - 24 hr 11/02/23 19:15 11/03/23 00:00 11/03/23 00:00 Temperature 98.2 F Pulse Rate 83 Pulse Rate [Apical ] 98 Pulse Rate [Pulse Oximeter] 95 Respiratory Rate 16 16 Blood Pressure [Le ft Arm] 125/73 Pulse Oximetry 95 Oxygen Delivery Me thod Room Air 11/03/23 00:00 11/03/23 07:34 11/03/23 12:00 Temperature 98.2 F Pulse Rate 82 Pulse Rate [Apical ] 90 Pulse Rate [Pulse Oximeter] 95 90 Respiratory Rate 16 20 Blood Pressure [Le ft Arm] 95/59 L 151/77 H Pulse Oximetry 95 97 Oxygen Delivery Me thod Room Air Room Air Documenting provider has reviewed patient's vital signs: yes Labs Labs: Laboratory Results - last 24 hr 11/03/23 05:37 WBC 7.34 RBC 3.44 L Hgb 10.0 L Hct 31.3 L MCV 91 MCH 29 MCHC 32 Plt Count 316 INR 2.21 H Sodium 138 Potassium 3.5 L Chloride 100 Carbon Dioxide 30 Anion Gap 8 BUN 14 Creatinine 0.6 Estimated Creat Clear 61.86 Estimated GFR 99 Glucose 87 Calcium 8.4 C-Reactive Protein 6.3 H
[2023-11-03 19:05] VITALS: BP 142/77; PULSE 113; RESP 18; TEMP 36.8; O2SAT 97
[2023-11-03] MEDS: ATORVASTATIN CALCIUM 40 MG TABLET PO (20:27)
[2023-11-03] MEDS: DONEPEZIL 5 MG TABLET PO (20:27)
[2023-11-03] MEDS: ENOXAPARIN 40 MG/0.4 ML INJ SUBCUT (20:28)
[2023-11-03] MEDS: LORazepam 1 MG TABLET PO (20:39)
--- NOTE | 2023-11-03 22:59 | PC.NURSE ---
Pt alert and oriented x3, forgetful at times. Afebrile. Pt reports 4/10 pain in lower back, managed with PRN oxycodone. Pt's left buttock dressing was changed x2, both meplex's were CDI, scant serosanguineous drainage was on the packed Kerlix gauze. Pt was turned and repositioned throughout shift Q2H, pt tolerated well. Pt's green catheter is patent and draining. Pt's colostomy bag is CDI no BM this shift.
[2023-11-04] VITALS (7 sets, daily range): BP systolic 118–151; BP diastolic 54–86; PULSE 77–113; RESP 16–20; TEMP 36.4–36.8; O2SAT 94–97
[2023-11-04] MEDS: OXYCODONE 5 MG TABLET 10 MG PO ×4 (00:47→18:31)
[2023-11-04] MEDS: PIPERACILLIN/TAZOBACTAM 3.375 GM in 0.9 % SODIUM CHLORIDE Mini-bag 100 ML IVPB ×4 (02:11→20:32)
[2023-11-04 06:50] LABS: Hematocrit 33.6 % (37.0-53.0); Hemoglobin* 10.8 gm/dL (13.5-17.5); Mean Corpuscular HGB Conc 32 gm/dL (32-36); Mean Corpuscular Hemoglobin 29 pg (26-34); Mean Corpuscular Volume 91 fL (80-100); Platelet Count* 315 K/uL (140-440); White Blood Count* 6.92 K/uL (4.50-11.00)
[2023-11-04 07:04] LABS: Slide Review Reflex No
[2023-11-04 07:08] LABS: Chloride* 101 mmol/L (96-114); Sodium* 139 mmol/L (135-149)
[2023-11-04 07:09] LABS: Potassium* 3.8 mmol/L (3.6-5.1)
[2023-11-04 07:12] LABS: Anion Gap 8 mEq/L (7-15); Blood Urea Nitrogen* 14 mg/dL (7-30); Calcium* 8.8 mg/dL (8.4-10.6); Carbon Dioxide* 30 mmol/L (20-32); Glucose* 94 mg/dL (60-115)
[2023-11-04 07:15] LABS: C Reactive Protein* 4.9 mg/dL (0.5-1.0)
[2023-11-04 07:28] LABS: INR 2.23 (0.91-1.10); Prothrombin Time 26.4 Seconds
[2023-11-04 07:32] LABS: Creatinine* 0.7 mg/dL (0.5-1.5); Est. Creatinine Clearance* 61.86; Estimated Glomerular Filt Rate 95 ml/min
[2023-11-04] MEDS: FUROSEMIDE 40 MG TABLET PO (08:37)
[2023-11-04] MEDS: SODIUM CHLORIDE 0.9 % (FLUSH) 10 ML SYRINGE 5 ML IVF ×2 (08:38→20:34)
[2023-11-04] MEDS: FAMOTIDINE 20 MG TABLET PO (09:13)
[2023-11-04] MEDS: buPROPion HCL SR 150 MG TAB PO ×2 (09:13→20:39)
[2023-11-04] MEDS: POTASSIUM CHLORIDE 10 MEQ CAPSULE ER 20 MEQ PO ×2 (09:14→20:42)
[2023-11-04] MEDS: BACLOFEN 10 MG TABLET 40 MG PO ×3 (09:14→20:37)
[2023-11-04] MEDS: DULOXETINE 30 MG CAPSULE DR 60 MG PO ×2 (09:14→20:40)
[2023-11-04] MEDS: GABAPENTIN 100 MG CAPSULE 400 MG PO ×3 (09:19→20:41)
[2023-11-04] MEDS: ARIPiprazole 10 MG TABLET 2.5 MG PO ×2 (09:20→20:43)
--- NOTE | 2023-11-04 11:50 | PM.GSPN ---
Subjective Subjective Date Seen: 11/04/23 Interval history: Jeff continues to do well. Has a headache today. Exam Narrative: Exam Narrative: General: No acute distress Wound: Deferred today as patient is visiting with family. Const: Vital Signs, click to edit/add: Vital Signs - 24 hr 11/03/23 12:00 11/03/23 16:25 11/03/23 16:25 Temperature 98.2 F Pulse Rate 86 Pulse Rate [Apical ] 90 Pulse Rate [Pulse Oximeter] 90 89 Respiratory Rate 20 18 Blood Pressure [Le ft Arm] 151/77 H Pulse Oximetry 97 Oxygen Delivery Me thod Room Air 11/03/23 16:25 11/03/23 19:05 11/04/23 00:40 Temperature 98.0 F 98.3 F Pulse Rate 90 Pulse Rate [Apical ] 89 Pulse Rate [Pulse Oximeter] 89 113 H Respiratory Rate 18 18 Blood Pressure [Le ft Arm] 157/86 H 142/77 H Pulse Oximetry 96 97 Oxygen Delivery Me thod Room Air Room Air 11/04/23 00:40 11/04/23 00:40 11/04/23 04:05 Temperature 98.3 F 98.2 F Pulse Rate Pulse Rate [Apical ] Pulse Rate [Pulse Oximeter] 77 92 84 Respiratory Rate 18 16 18 Blood Pressure [Le ft Arm] 142/77 H 130/78 Pulse Oximetry 95 95 Oxygen Delivery Me thod Room Air Room Air Labs/Imaging Labs Labs: White blood cell count is normal CRP continues to decrease, 4.9 from 6 Progress Note: A&P Assessment and plan (1) Pressure ulcer of left buttock, stage 4: Problem details: -POD 2 wound debridement - left buttock, ischial spine -continue broad spectrum abx, narrow with new cultures -CRP downtrending, WBC normalized -ID CONNECT CONSULT PLACED AM OF 11/01 (despite not having all cultures back) Continue current antibiotic therapy for 2 week treatment. Current plan is to treat for 2 weeks until wound granulate over than consider 6 week course of curative therapy for osteomyelitis or surgery for placement of a flap. Status: Chronic Plan The patient is a 78-year-old male with paraplegia and a stage IV buttock ulcer with osteomyelitis. -ID consult tomorrow to discuss narrowing and duration of antibiotics. This will help with the DC planning. -continue b.i.d. dressing changes well patient is inpatient. I will examine the wound tomorrow.
[2023-11-04] MEDS: LORazepam 0.5 MG TABLET PO (12:29)
[2023-11-04] MEDS: ACETAMINOPHEN 325 MG TABLET PO (13:25)
--- NOTE | 2023-11-04 13:36 | P.IMPN_ITS ---
Progress Note: A&P Assessment and plan (1) Pressure ulcer of left buttock, stage 4: Problem details: -POD 2 wound debridement - left buttock, ischial spine -continue broad spectrum abx, narrow with new cultures -CRP downtrending, WBC normalized -ID CONNECT CONSULT PLACED AM OF 11/01 (despite not having all cultures back) Continue current antibiotic therapy for 2 week treatment. Current plan is to treat for 2 weeks until wound granulate over than consider 6 week course of curative therapy for osteomyelitis or surgery for placement of a flap. Status: Chronic (2) Edema: Problem details: Edema is partially due to volume overload and partially due to dependent edema, particularly in his scrotum. Elevate scrotum as needed and continue diuretics and monitor weight and volume status Status: Acute (3) Osteomyelitis: Problem details: Bone Culture growing Klebsiella and Enterococcus. Also Pseudomonas infection on wound culture. All 3 of these appear sensitive to Zosyn and Levaquin. 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 Tomorrow review with family, foster care social worker, Infectious Disease consult and other providers a plan of care to transition home Time Spent With Patient Total time spent: Total time spent today is 20 minutes, all that time in discussing with patient and family and other providers ongoing evaluation management of osteomyelitis and wound care Subjective Date Seen: 11/04/23 Interval history: 78-year-old male with diabetes mellitus and paraplegia admitted to the hospital with worsening infection in an ulcer in his left buttock and osteomyelitis in his left ischial spine. Surgery consultation led to a surgical debridement. He has been treated since admission on October 29 with vancomycin and Zosyn. Prior to that he had a week of ceftriaxone 2 g daily as outpatient IV therapy for Klebsiella infection. Wound cultures obtained on October 30 have grown out Klebsiella pneumonia, Pseudomonas aeruginosa, Enterococcus gallinarum. Klebsiella is sensitive to everything but ampicillin. Pseudomonas is sensitive to the usual and a pseudomonal drugs including Zosyn. Enterococcus is sensitive to ampicillin but not vancomycin. He has been clinically improving through his hospital stay. He is getting daily wound debridement with surgery. Night of November 01 he had some delirium. No documented episodes since that time. Night of November 02 he was noted to have increasing edema. He was given IV furosemide. IV fluids were stopped as well. He reports doing well today. Visiting with family. He has no concerns today. notes that he had some delirium after 1 dose of IV levofloxacin at [address] in the past. Exam Narrative: Exam Narrative: He is alert pleasant no distress breathing is unlabored. Abdomen is soft. Const: Vital Signs, click to edit/add: Vital Signs - 24 hr 11/03/23 16:25 11/03/23 16:25 11/03/23 16:25 Temperature 98.0 F Pulse Rate 86 Pulse Rate [Apical ] 89 Pulse Rate [Pulse Oximeter] 89 89 Respiratory Rate 18 18 Blood Pressure [Le ft Arm] 157/86 H Pulse Oximetry 96 Oxygen Delivery Me thod Room Air 11/03/23 19:05 11/04/23 00:40 11/04/23 00:40 Temperature 98.3 F Pulse Rate 90 Pulse Rate [Apical ] Pulse Rate [Pulse Oximeter] 113 H 77 Respiratory Rate 18 18 Blood Pressure [Le ft Arm] 142/77 H Pulse Oximetry 97 Oxygen Delivery Me thod Room Air 11/04/23 00:40 11/04/23 04:05 Temperature 98.3 F 98.2 F Pulse Rate Pulse Rate [Apical ] Pulse Rate [Pulse Oximeter] 92 84 Respiratory Rate 16 18 Blood Pressure [Le ft Arm] 142/77 H 130/78 Pulse Oximetry 95 95 Oxygen Delivery Me thod Room Air Room Air Documenting provider has reviewed patient's vital signs: yes Labs Labs: Laboratory Results - last 24 hr 11/04/23 05:36 WBC 6.92 RBC 3.70 L Hgb 10.8 L Hct 33.6 L MCV 91 MCH 29 MCHC 32 Plt Count 315 INR 2.23 H Sodium 139 Potassium 3.8 Chloride 101 Carbon Dioxide 30 Anion Gap 8 BUN 14 Creatinine 0.7 Estimated Creat Clear 61.86 Estimated GFR 95 Glucose 94 Calcium 8.8 C-Reactive Protein 4.9 H
--- NOTE | 2023-11-04 15:52 | PC.NURSE ---
Pt eval by Dr. Gamble and Dr. Fortune. No behaviors or dysphagia with meds. Good appetite and adequate I and O. Drsg changed per protocol @ 1330 pm with 2 staff members and observing process to take a picture. Please see eMar for meds provided on day shift. Tylenol prn for mild h/a 3 out of 10. BG at bkfst 92 and BG at lunch 127. Continue plan of care, report to Stephanie PADILLA for evening shift. Tele indicates NSR with BBB.
[2023-11-04] MEDS: WARFARIN 2.5 MG TABLET 7.5 MG PO (16:49)
[2023-11-04] MEDS: LORazepam 1 MG TABLET PO (20:38)
[2023-11-04] MEDS: ATORVASTATIN CALCIUM 40 MG TABLET PO (20:40)
[2023-11-04] MEDS: DONEPEZIL 5 MG TABLET PO (20:40)
--- NOTE | 2023-11-04 22:08 | PC.NURSE ---
Pt is alert and oriented x3, with occasional forgetfulness. Afebrile. Pt reports 4/10 pain in lower back, managed with scheduled oxycodone. Pt's left buttock dressing was changed and is CDI. Pt was turned and repositioned Q2H throughout shift.
[2023-11-05] MEDS: OXYCODONE 5 MG TABLET 10 MG PO ×2 (01:07→07:53)
[2023-11-05] MEDS: PIPERACILLIN/TAZOBACTAM 3.375 GM in 0.9 % SODIUM CHLORIDE Mini-bag 100 ML IVPB ×2 (02:30→07:52)
[2023-11-05 03:00] VITALS: PULSE 106; RESP 18; TEMP 36.6; O2SAT 93
--- NOTE | 2023-11-05 06:07 | PC.NURSE ---
Shift note: Pt is afebrile, pain treated per eMARs with scheduled meds, pt tolerates turning and reposition with no c/o increased discomfort, he is able to let his needs known. Large urine output, large amounts of stools in stoma.
[2023-11-05 06:31] LABS: Hematocrit 42.7 % (37.0-53.0); Hemoglobin* 13.8 gm/dL (13.5-17.5); Mean Corpuscular HGB Conc 32 gm/dL (32-36); Mean Corpuscular Hemoglobin 29 pg (26-34); Mean Corpuscular Volume 90 fL (80-100); Platelet Count* 235 K/uL (140-440); Red Blood Count 4.75 m/uL (4.30-5.90); White Blood Count* 7.33 K/uL (4.50-11.00)
[2023-11-05 06:40] LABS: Chloride* 101 mmol/L (96-114)
[2023-11-05 06:41] LABS: Potassium* 3.7 mmol/L (3.6-5.1); Sodium* 139 mmol/L (135-149)
[2023-11-05 06:43] LABS: Creatinine* 0.6 mg/dL (0.5-1.5); Est. Creatinine Clearance* 61.86; Estimated Glomerular Filt Rate 99 ml/min; Slide Review Reflex No
[2023-11-05 06:44] LABS: Anion Gap 9 mEq/L (7-15); Blood Urea Nitrogen* 15 mg/dL (7-30); Carbon Dioxide* 29 mmol/L (20-32); Glucose* 110 mg/dL (60-115)
[2023-11-05 06:47] LABS: C Reactive Protein* 3.6 mg/dL (0.5-1.0)
[2023-11-05 06:56] LABS: INR 2.57 (0.91-1.10); Prothrombin Time 29.5 Seconds
[2023-11-05 07:00] VITALS: BP 154/87; PULSE 75; PULSE 91; RESP 16; TEMP 36.7; O2SAT 95
[2023-11-05 07:00] LABS: Calcium* 8.9 mg/dL (8.4-10.6)
[2023-11-05] MEDS: FUROSEMIDE 40 MG TABLET PO (07:52)
--- NOTE | 2023-11-05 09:06 | PM.GSPN ---
Subjective Subjective Date Seen: 11/05/23 Interval history: Jeff is feeling more emotional today. But he is otherwise stable from a physical standpoint. Exam Narrative: Exam Narrative: General: No acute distress Skin: Periwound skin is healthy without erythema. Wound base containing mainly granulation tissue. There is some fibrinous debris at the base in the area of the tendon. This is on the medial and inferior aspect. Const: Vital Signs, click to edit/add: Vital Signs - 24 hr 11/04/23 12:15 11/04/23 15:15 11/04/23 15:15 Temperature 98.2 F Pulse Rate 113 H Pulse Rate [Apical ] 92 98 Pulse Rate [Pulse Oximeter] 92 98 Respiratory Rate 20 20 Blood Pressure [Le ft Arm] 122/80 Pulse Oximetry 96 Oxygen Delivery Me thod Room Air 11/04/23 15:15 11/04/23 20:45 11/04/23 23:00 Temperature 98.2 F 97.5 F L Pulse Rate 84 Pulse Rate [Apical ] 98 Pulse Rate [Pulse Oximeter] 98 84 Respiratory Rate 20 18 Blood Pressure [Le ft Arm] 118/54 L 130/82 Pulse Oximetry 95 97 Oxygen Delivery Me thod Room Air Room Air 11/04/23 23:00 11/04/23 23:00 11/05/23 03:00 Temperature 97.6 F 98 F Pulse Rate Pulse Rate [Apical ] Pulse Rate [Pulse Oximeter] 84 84 106 H Respiratory Rate 18 18 18 Blood Pressure [Le ft Arm] 151/86 H Pulse Oximetry 96 93 Oxygen Delivery Me thod Room Air Room Air Labs/Imaging Labs Labs: White count remains normal CRP is trending down Progress Note: A&P Assessment and plan (1) Edema: Problem details: Edema is partially due to volume overload and partially due to dependent edema, particularly in his scrotum. Elevate scrotum as needed and continue diuretics and monitor weight and volume status Status: Acute (2) Osteomyelitis: Problem details: Bone Culture growing Klebsiella and Enterococcus. ID consult recommended 7 days of Augmentin at discharge - possible need for a 6 week course once bone is covered either by secondary intention/wound VAC or surgical flap Status: Acute (3) Pressure ulcer of left buttock, stage 4: Problem details: -wound debridement, general surgery/operating, 10/30/23. -ID consult, 11/05, discussion with culture results: Augmentin 875 b.i.d. for 7 days, status post IV Zosyn and vancomycin since admission on 10/29. -Current plan is to treat for a total of 2 weeks. Assuming wound closure with wound VAC or plastic surgery consultation would then necessitate 6 full weeks to treat the underlying osteomyelitis. Status: Chronic (4) Diabetes mellitus type 2 in nonobese: Problem details: -diet controlled, no longer insulin-dependent -achs glucose checks Status: Chronic (5) History of DVT (deep vein thrombosis): Problem details: -on chronic anticoagulation. 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 -discharge home once there is a plan for outpatient antibiotics and wound cares ( is be able to do daily wet-to-dry dressing changes with Vashe until home health and or Wound Clinic is set up - having difficulty over the holiday week)
[2023-11-05] MEDS: FAMOTIDINE 20 MG TABLET PO (09:08)
[2023-11-05] MEDS: BACLOFEN 10 MG TABLET 40 MG PO (09:08)
[2023-11-05] MEDS: GABAPENTIN 100 MG CAPSULE 400 MG PO (09:09)
[2023-11-05] MEDS: DULOXETINE 30 MG CAPSULE DR 60 MG PO (09:09)
[2023-11-05] MEDS: POTASSIUM CHLORIDE 10 MEQ CAPSULE ER 20 MEQ PO (09:09)
[2023-11-05] MEDS: buPROPion HCL SR 150 MG TAB PO (09:09)
[2023-11-05] MEDS: SODIUM CHLORIDE 0.9 % (FLUSH) 10 ML SYRINGE 5 ML IVF (09:33)
[2023-11-05] MEDS: ARIPiprazole 10 MG TABLET 2.5 MG PO (10:30)
--- NOTE | 2023-11-05 11:16 | PM.DS1 ---
DS: Providers Provider Date Seen: 11/05/23 Date of admission: 10/30/23 08:47 Primary care physician: Franklin Squires MD Admitting Clinician: Cristy Lundy MD Consults: 10/29/23 17:54 Consult to Occupational Therapy [CONS] Routine Comment: Reason(s) for OT Consult:: Evaluate and Treat Any Restrictions?:: No Restrictions 10/29/23 18:39 Consult to Physician [CONS] Routine Comment: Consulting Provider: Katerina Fortune Has provider been notified: Yes 11/01/23 08:09 Consult to Infectious Diseases [CONS] Routine Comment: Consulting Provider: [facility] Consult priority: Routine Has provider been notified: No Call back required?: Yes Attending Physician on discharge: Cristy Lundy MD [facility] Date of Discharge: 11/05/23 DS: Diagnosis Discharge Diagnosis (1) Pressure ulcer of left buttock, stage 4: Status: Chronic Problem details: -wound debridement, general surgery/operating, 10/30/23. -ID consult, 11/05, discussion with culture results: Augmentin 875 b.i.d. for 7 days, status post IV Zosyn and vancomycin since admission on 10/29. -Current plan is to treat for a total of 2 weeks. Assuming wound closure with wound VAC or plastic surgery consultation would then necessitate 6 full weeks to treat the underlying osteomyelitis. (2) Osteomyelitis: Status: Acute Problem details: Bone Culture growing Klebsiella and Enterococcus. 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 (4) Chronic anticoagulation: Status: Acute Problem details: Warfarin, INR goal History of DVT, recurrent (5) Diabetes mellitus type 2 in nonobese: Status: Chronic Problem details: -diet controlled, no longer insulin-dependent -achs glucose checks (6) Dementia: Status: Chronic Problem details: -mild to moderate (7) Delirium: Status: Acute Problem details: Hospital-acquired delirium associated with dementia -resolved (8) Acute hypokalemia: Status: Acute Problem details: -resolved (9) Anemia: Status: Chronic Problem details: -stable, improved DS: Summary Hospital Course Hospital Course: FINAL DIAGNOSIS/FOLLOW UP ISSUES: 1. Patient will need continued home health and wound care clinic visits for his stage IV decubitus ulcer, left buttock, wound. 2. He received IV Zosyn and vancomycin during his October 2023 admission. He was discharged on oral Augmentin. He may need 6 more weeks of antibiotics after bone has been granulated and or surgically covered. BRIEF HOSPITAL COURSE: Patient was admitted for 8 days. Synopsis of acute inpatient issues are outlined above. Chronic medical conditions with notable findings outlined above. He previously had a PICC line placed prior to admission when he was receiving outpatient IV Rocephin. He continued to worsen clinically on the IV Rocephin. He was admitted for a debridement on 10/29/2023. His surgery was on 10/30. He had daily wound dressings. Soft tissue cultures and bone cultures were reviewed at discharge with Infectious Disease. His PICC line was removed. He was discharged on oral Augmentin for 7 days. He will have continued care with the wound care clinic and home health. It is to be determined if his wound will continue to heal with good wound care and wound VAC placement or if he will need a plastic surgery referral. Other health issues to include chronic anemia, hypokalemia, dimensions/intermittent delirium all resolved by discharge. DISCHARGE MEDICATIONS: See Reconciled list - SIGNIFICANT CHANGES: Augmentin 875 p.o. b.i.d. times 14 doses Other home medications were kept the same. Specific instructions to the patient and follow-up are outlined below. REVIEW OF SYSTEMS No new chest pain or dyspnea Pain controlled No voiding difficulties Tolerating diet challenge PHYSICAL EXAM: CONSTITUTIONAL: Awake, alert. His does a lot of the care discussion on his behalf. VITAL SIGNS: see record. HEENT: Normocephalic, atraumatic. PERRL, EOMI, conjunctivae pink, no scleral icterus. Ears and nose externally normal. Pharynx normal. NECK: No JVD. No carotid bruit, no thyromegaly, no adenopathy. CHEST: Clear to auscultation bilaterally. HEART: S1 and S2 normal. Edema, scrotal and lower extremity edema present and chronic. ABDOMEN: Soft, nontender. Normal bowel sounds. MUSCULOSKELETAL: No gross joint deformity or swelling. NEURO: Cranial nerves intact. Grossly intact. No asymmetric findings. SKIN: No rashes, petechiae, concerning changes PSYCHIATRIC: Mood euthymic. DISPOSITION: Home with Time spent on discharge 37 minutes. Status at Discharge Functional status at discharge: wheelchair bound Overall status at discharge: patient is progressing back to baseline Time Spent with Patient Time attestation: Total time spent providing and/or coordinating discharge services: Time spent: Greater than 30 minutes Exam Const: Vital Signs, click to edit/add: Vital Signs - 24 hr 11/04/23 12:15 11/04/23 15:15 11/04/23 15:15 Temperature 98.2 F Pulse Rate 113 H Pulse Rate [Apical ] 92 98 Pulse Rate [Pulse Oximeter] 92 98 Respiratory Rate 20 20 Blood Pressure [Le ft Arm] 122/80 Pulse Oximetry 96 Oxygen Delivery Me thod Room Air 11/04/23 15:15 11/04/23 20:45 11/04/23 23:00 Temperature 98.2 F 97.5 F L Pulse Rate 84 Pulse Rate [Apical ] 98 Pulse Rate [Pulse Oximeter] 98 84 Respiratory Rate 20 18 Blood Pressure [Le ft Arm] 118/54 L 130/82 Pulse Oximetry 95 97 Oxygen Delivery Me thod Room Air Room Air 11/04/23 23:00 11/04/23 23:00 11/05/23 03:00 Temperature 97.6 F 98 F Pulse Rate Pulse Rate [Apical ] Pulse Rate [Pulse Oximeter] 84 84 106 H Respiratory Rate 18 18 18 Blood Pressure [Le ft Arm] 151/86 H Pulse Oximetry 96 93 Oxygen Delivery Me thod Room Air Room Air 11/05/23 07:00 Temperature 98.1 F Pulse Rate Pulse Rate [Apical ] Pulse Rate [Pulse Oximeter] 75 Respiratory Rate 16 Blood Pressure [Le ft Arm] 154/87 H Pulse Oximetry 95 Oxygen Delivery Me thod Room Air DS: Data Data Completed and Pending Labs on day of discharge: Labs from last 24 hours 11/05/23 05:40 WBC 7.33 RBC 4.75 Hgb 13.8 Hct 42.7 MCV 90 MCH 29 MCHC 32 Plt Count 235 INR 2.57 H Sodium 139 Potassium 3.7 Chloride 101 Carbon Dioxide 29 Anion Gap 9 BUN 15 Creatinine 0.6 Estimated Creat Clear 61.86 Estimated GFR 99 Glucose 110 Calcium 8.9 C-Reactive Protein 3.6 H Discharge Plan Discharge Disposition: Home w/ Parent or Adult Date of Admission: 10/30/23 08:47 Attending Provider on Discharge: Cristy Lundy Consulting Providers: Katerina Fortune; Cristine Adnre; Vaishnavi Fernandez; Sindhu Alanis; Satish South; Bryson Cesar; Fatimah Siddiqui; Mariya Glaser Primary Care Provider: Franklin Squires Anticipated Discharge Date/Time: 11/05/23 09:31 Discharge Medications: New amoxicillin-pot clavulanate 875-125 mg tablet 1 tab PO BID Qty: 14 0RF Continued amlodipine 5 mg tablet 5 mg PO DAILY acetaminophen 500 mg tablet 1,000 mg PO TID aripiprazole 2 mg tablet 2 mg PO BID ascorbic acid (vitamin C) 500 mg tablet 1 g PO BIDWM atorvastatin 40 mg tablet 40 mg PO HS baclofen 20 mg tablet 40 mg PO TID bupropion HCl 150 mg tablet sustained-release 12 hr 150 mg PO BID cholecalciferol (vitamin D3) 25 mcg (1,000 unit) tablet 25 mcg PO DAILY donepezil 5 mg tablet 5 mg PO HS duloxetine 60 mg capsule,delayed release(DR/EC) 60 mg PO BID famotidine 20 mg tablet 20 mg PO DAILY A Thru Z Select [id number] mcg tablet 1 tab PO DAILY furosemide 40 mg tablet 40 mg PO DAILY gabapentin 400 mg capsule 400 mg PO TID lorazepam 0.5 mg tablet 0.5 mg PO BID lorazepam [Ativan] 1 mg tablet 1 mg PO HS magnesium hydroxide [Milk of Magnesia] 400 mg/5 mL suspension 15 ml PO DAILY PRN potassium chloride 10 mEq tablet,ER particles/crystals 20 meq PO DAILY oxycodone 10 mg tablet 10 mg PO Q6H warfarin 5 mg tablet 5 mg PO .SATURDAY warfarin [Jantoven] 7.5 mg tablet 7.5 mg PO SUMOTUWEFRSA (DME) Transparent Mepitel Film Dress 4 X 4.8 bandage See Rx Instructions .Route Qty: 20 2RF Rx Instructions: As directed, following wound care orders Discharge Orders: Discharge Order (Routine); Ordered 11/05/23 Ordered By: Cristy Lundy Patient Education: How to Prevent Pressure Injuries (DC), Skin Care After Spinal Cord Injury (DC), Chronic Wounds (DC), Incision and Drainage (DC) Additional Instructions: 1. Augmentin one tab twice a day until gone 2. Wound care: remove previous packing, soak kerlix with VASHE and repack, cover with Meplix. Do this daily. 3. Off weight every 2-3 hours as possible to encourage good wound healing 4. Wound clinic appt next week as outlined below. 5. Home Health will start after 11/11/23 they will contact you to set up time and date. Activity Level: Activity as Tolerated Discharge Diet: Regular Follow Up Appointments[facility] Group[facility] - 11/12/23 2:00 pm (call and get the appt set for him for next week 11/12-11/15) Franklin Squires MD [Primary Care Provider] - Forms: [facility] Info Instructions
--- NOTE | 2023-11-05 11:36 | PC.SOCIAL ---
Addendum entered by FAUSTINO Ramirez 11/05/23 14:10: Discharge planning: Provided pt with a copy of The Important Message from Medicare form. Social work to follow-up as needed. Original Note: Discharge planning: Met with pt and today. Pt will be going home later today. loft worker talked with [facility] and they will be able to open pt next week and are still working out schedules with staff, but are committed to opening the pt for Home Care. Pt's asked about having a ALIVIA filled out for pt's medical records to be shared with pt's PCP at [facility]. loft worker connected with the charge nurse about this. Social work to follow-up as needed.
--- NOTE | 2023-11-05 11:47 | PC.NURSE ---
The patients wound care was completed this morning. His PICC line was removed @ 1030 AM was intact and noted @ 44cm, petroleum gauze applied with transparent dressing. IV ABX were infused prior to removal this AM. Wound care to follow up with the patient. q2 REPOSITION in bed. Suprapubic catheter patent and draining.. Ostomy with minimal output this shift. No reports of pain. Amira PADILLA BSN
--- NOTE | 2023-11-05 13:59 | PC.NURSE ---
Patient discharged home with at 1245. Ax2 ceiling lift transfer to electric scooter. Pt tolerated transfer well. Pt A&O, afebrile and VSS at time of discharge. Suprapubic catheter intact draining clear, yellow urine. Total output today: 850 mL. Ostomy bag C/D/I. Discharge instructions reviewed with patient and his who both verbalized understanding. Home health care to be set up after the first of the year. Patient denies any pain or nausea at time of discharge.
== END 2023-11-05 12:45 | disposition home or self-care (01) | DRG 463 ==
PROVIDERS: Surgery; Admitting Provider Family Medicine; PCP Family Medicine; Visit Provider Physician Assistant
PROC: 0JB90ZZ Excision of Buttock Subcutaneous Tissue and Fascia, Open Approach (ICD-10-PCS; principal; 2023-10-30 12:00)
DX: M86.18 Other acute osteomyelitis, other site (principal); L89.324 Pressure ulcer of left buttock, stage 4; F05 Delirium due to known physiological condition; G82.20 Paraplegia, unspecified; F03.B0 Unspecified dementia, moderate, without behavioral disturbance, psychotic disturbance, mood disturbance, and anxiety; E11.9 Type 2 diabetes mellitus without complications; N31.9 Neuromuscular dysfunction of bladder, unspecified; I10 Essential (primary) hypertension; G89.4 Chronic pain syndrome; I89.0 Lymphedema, not elsewhere classified; Z86.718 Personal history of other venous thrombosis and embolism; J44.9 Chronic obstructive pulmonary disease, unspecified; D64.9 Anemia, unspecified; E87.6 Hypokalemia; B96.1 Klebsiella pneumoniae [K. pneumoniae] as the cause of diseases classified elsewhere; B95.2 Enterococcus as the cause of diseases classified elsewhere; B96.5 Pseudomonas (aeruginosa) (mallei) (pseudomallei) as the cause of diseases classified elsewhere; R60.9 Edema, unspecified; Z79.01 Long term (current) use of anticoagulants; E78.5 Hyperlipidemia, unspecified
CPT/HCPCS: 00300; 11043; 36415; 36589; 80048; 80053; 82962; 83605; 83735; 84145; 85025; 85027; 85610; 86140; 87040; 87070; 87075; 87186; 87205; 97110; 97166; 97535; 99100; 99140; G0378; G0463; A4221; A9270; G0379; J1650; J1940; J2405; J2543; J2704; J3010; J3370; J3430; J7030; J7042; J7120; S0106

== ENCOUNTER 2023-11-12 13:55 | Outpatient (CLI) | payer MEDICARE, OTHER, SELFPAY | END 2023-11-12 13:56 | disposition home or self-care (01) | LOC: WOUND 13:55 | PROVIDERS: PCP Family Medicine; Visit Provider Physician Assistant | DX: L89.324 Pressure ulcer of left buttock, stage 4 (principal); G82.50 Quadriplegia, unspecified | CPT/HCPCS: 97597 ==

== ENCOUNTER 2023-11-18 12:40 | Outpatient (CLI) | payer MEDICARE, OTHER, SELFPAY ==
--- OUTSIDE RECORDS SUMMARY | 2023-11-18 12:42 | XMS_ITS | Encounter Summary ---
Author Name Department of Vetera ns Affairs Organization Department of Vetera ns Affairs Address [address] [place] [id number] Support Name Relationship Address Phone WADE DEGROOT Next of Kin [address] [place] [address] WADE DEGROOT Emergency Contact [address] [place] [address] CHANTEL DEGROOT Next of Kin [place] DENNISON Emergency Contact VET VERBAL CON SENT FOR TELEH [place]ISEL[place] Insurance Providers: All historical and current Section Date Range: From patient's date of to the date document was created. This section includes the names of all active insurance providers for the patient. Insurance Provider Type of Coverage Plan Name Start of Policy Coverage End of Policy Coverage Group Number Member ID Insurance Provider's Telephone Number Policy Ford's Name Patient's Relationship to Policy Ford MEDICARE (WNR) MEDICARE (M) PART B Jul 12, 2004 PART B [id number] [facility] [phone] Kasie DEGROOT RED PATIENT MEDICARE (WNR) MEDICARE (M) PART A Oct 11, 2002 PART A [id number] [id number] [phone] Kasie DEGROOT RED PATIENT Selected Encounter This section includes the information on record at [place] for the Encounter. Date/Time Encounter Type Encounter Description Reason Provider Source Feb 05, 2023 09:00 AM OT EVAL LOW COMPLEX 30 MIN [facility] TELEHE[facility] VIRTUAL ICD-10-CM Z73.6 Limitation of activities due to disability LAKSHMI PARDO IHEvelyn Encounter Template Text not used by [place] Assessments - Encounter Diagnoses This section includes the primary and secondary diagnoses documented for the Encounter. Date/Time Primary/Secondary Diagnosis Diagnosis Name Provider Source Feb 05, 2023 09:00 AM PRIMARY Limitation of activities due to disability LAKSHMI PARDO [facility] Feb 05, 2023 09:00 AM SECONDARY Paraplegia, unspecified LAKSHMI PARDO [facility] Plan of Treatment: Future Appointments (+ 6 months) and Future Tests (+/- 45 days) The Plan of Treatment section includes future care activities for the patient from all [facility] This section includes future appointments and future orders which are active, pending or scheduled. Future Appointments This section includes appointments that were scheduled to occur 6 months from the date of the Encounter, up to a maximum of 20 appointments. The data comes from all [place] treatment facilities. Appointment Date/Time Appointment Type Appointme nt Facility Name Feb 08, 2023 02:00 PM AMBULATORY - REHAB MEDICIN E [facility] Feb 13, 2023 11:00 AM [facility]UL[facility]ORY [facility]IN [facility] Feb 13, 2023 01:00 PM AMBULATORY - REHAB MEDICIN E [facility] Jun 10, 2023 01:00 PM AMBULATORY - REHAB MEDICIN E [facility] Jun 13, 2023 07:00 AM AMBULATORY - NONE [facility] Lab Results: +/- 30 days of the encounter This section includes the Chemistry and Hematology Lab Results on record with MI for the patient. Radiology Reports and Pathology Reports are provided separately, in subsequent sections. Lab Results This section contains the Chemistry/Hematology Results that were resulted 30 days before or 30 daysafter the date of the Encounter. Date/Time Source Result Type Result - Unit Interpretation Reference Range Comment Feb 13, 2023 11:05 AM [facility] CYSTATIN C WITH EGFR Specimen Type: PLASMA No comment entered. Ordering Provider: ISAIAH BOWMAN Report Released Date/Time: Feb 05, 2023 03:10 PM Reporting Lab: [facility] [id number] Performing Lab: [facility] [id number] CYSTATIN C 1.27 H 0.51-1.05 CYST C EGFR(CKD-EPI ) 53 L >60 Feb 13, 2023 11:05 AM [facility] BASIC METABOLIC PANEL+MG Specimen Type: PLASMA No comment entered. Ordering Provider: ISAIAH BOWMAN Report Released Date/Time: Feb 05, 2023 03:10 PM Reporting Lab: [facility] [id number] Performing Lab: [facility] [id number] CREATININE 0.7 0.7-1.2 UREA NITROGEN 15 8-26 GLUCOSE 140 H 70-100 SODIUM 135 L 136-145 POTASSIUM 4.0 3.5-5.1 CHLORIDE 99 98-107 CO2 29 22-29 CALCIUM 9.2 8.4-10.2 MAGNESIUM 2.0 1.6-2.6 ANION GAP 7 5-15 CREAT EGFR(CKD-EPI ) >90 >60 Vital Signs: All taken on the encounter date This section contains inpatient and outpatient Vital Signs collected on the date of the Encounter. Date/Time Temperature Pulse Blood Pressure Respiratory Rate SP02 Pain Height Weight Body Mass Index Source Feb 05, 2023 03:39 PM 225 lb 33 [facility] Advance Directives: All historical and current Section Date Range: From patient's date of to the date document was created. This section includes ALL of a patient's completed or amended [place] Advance and Rescinded Directives. The entries below indicate that a directive exists for the patient, but an actual copy is not included with this document. The data comes from all [place] facilities. Date Advance Directives Provider Source Feb 05, 2023 ADVANCE DIRECTIVE DISCUSSION GUSTAVO ABAD [facility] Encounter Notes: All associated encounter notes This section contains the clinical notes associated to the Encounter. Date/Time Encounter Note(s) Provider Source Feb 05, 2023 07:51 AM SPINAL CORD INJURY CONSULT: LOCAL TITLE: SCI/D THERAPY ANNUAL EVALUATION CONSULT STANDARD TITLE: SPINAL CORD INJURY CONSULT DATE OF NOTE: FEB 05, 2023@07:51 ENTRY DATE: FEB 05, 2023@07:51:41 AUTHOR: SATHISH PARDO EXP COSIGNER: URGENCY: STATUS: COMPLETED Clinical Video Telehealth (CVT) - Home Appointment Visit conducted by synchronous telehealth. verbal consent obtained. Location/emergency number confirmed. Environment surveyed and all participants identified. Virtual conference room locked. Veterans Crisis Line: & press #1 or text [id number] [facility] Telehealth Technology Help Desk ([facility] [phone] or . 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 All objective measures tested separately per discipline. SUBJECTIVE Pertinent Medical History: In 1999 radha was diagnosed with a tumor on his spine. 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 By 2006, needed spinal surgery to remove the tumor and became a complete paraplegic. In early 2016 radha had what was diagnoses as a superficial PI but it was a deep abscess and he became septic. He had surgery developed/was found to have necrotizing fasciitis. He returned home in April of 2017 and was set up with a hospital bed and alternating pressure mattress. The PI healed to a point but one area would not heal and in August of 2018 he had flap surgery. Goals/Concerns/Equipment needs: has upcoming appt regarding his new pwc, ie. feels like the seat back is too small. Working with [facility] to get a new hospital bed with alternating air mattress. Vet and will talk with [facility] during appt on 02/08/23. They are very happy with their new ceiling lift for transfers. Level of Function (change): Radha feels his function is about the same Social History/Hobbies: Lives: with: Wade Primary Support System: 2 adult children live in the area, kids and grandkids assist with yardwork, snow removal. Vet has SANDBLASTER SUPERVISOR 3 days/week for up to 3 hours/da Living Environment: Rambler style home with basement, attached 2 car garage with wooden ramp as his primary entrance, front door also has ramp. Main bedroom and bathroom are on the main floor. Bathroom has walk in shower with small lip and a ramp and rolling DOUG shower chair. Transfers onto showr vhair via ceiling lift. For full information about home environment, see OT home [facility] stewart 06/07/22. Assistance Available: Activities of Daily Living/Instrumental or Electronic Activities of Daily Living: Assistance for nearly all ADLs including dressing and bathing due to high thoracic injury level. SANDBLASTER SUPERVISOR M, W, F for showers and dressing, assists with all other ADLs and IADLs on a daily basis. Transfer Routine/Functional Mobility: Ceiling based lift system using either divided leg or long seated slings. Mobility Devices: Convene M3 power wheelchair with HP roho cushion and Corpus Ergo Backrest (to be reevaluated on 02/13). Radha uses a DOUG self propel shower chair in his bathroom. Back up [facility]. Community Mobility/Drivin [employer] with ramp and hand controls. Radha continues to drive independently in the summer. Does not get out much in the winter. Stretching/Strengthening/R OM Home program: not a whole lot. Talking to his about going back to therapy. States it has been at least a couple years. Feels his core balance has gotten more impaired. Impact of Fatigue: Feels his energy is good during the day. Does not take naps. Falls History: No falls. Wound History: No current wounds, has h/o flap and multiple buttocks wounds. Reviewed pressure relief recommendations with vet/; every 30 minutes for 2 minutes. Pain: has some discomfort in his lower back, rated 5-6/10, states it is more of a tighness. Uses an ice pack in the afternoon. After using ice pack, rates pain 3/10 or less. reports that it seems the pain can get higher because vet will tell her my back is on fire. Cognition/Memory: Relies on for remembering appts. Goals for Future: Just stay as healthy as I can I guess. OBJECTIVE: Physical Observation: dressed in street clothes, nicely groomed, pleasant. History of UE/LE Function and Objective Testing: No records on file Emotional/Behavioral: Pleasant and cooperative Cognition/Mental status/Ability to Participate: Able to fully participate, also provided information Patient/Family Education/Intervention: Readiness to Learn: Ready and able to learn information Education Method: Verbal/Visual/Screenshare Education Items: Pressure relief recommendations Understanding of Education: Patient/family member/caregiver state good understanding of above stated education items, with no further questions, comments, or concerns noted. No further follow-up or education needed. Equipment: Radha has the following AE in the home: - ceiling mointed charis lift - PWC - Wooden transfer bar - Hospital bed with railings, air mattress - Hzdyj-kj-peuboed pole with trapeze attachment, flip-down horizontal bar - DOUG shower chair, threshold ramp - Wheelchair van - Manual wheelchair (has not used in a long time, backup only) - Nu Step machine (does not use currently due to difficult transfer) - Manual Easy Stand device (reports transferring onto the seat from the PWC level is difficult, is not able to operate anymore due to shoulder deficits) ASSESSMENT: Radha is a 77 yo male with paraplegia who was seen for his first [facility] annual exam with PT/OT on this date. Radha lives with his in a rambler style home. Radha is new to services at the [facility] (less than one year) but has worked with PT/OT to get a new pwc as well as DME for home, including a ceiling based lift for transfers. Radha reports all equipment in the home is working well. They are very appreciative of the ceiling lift and new DOUG shower/commode chair. Radha has an upcoming SCI/D w/c clinic appt. to look at his new pwc back rest as radha feels it is a little small. Radha and would like a new air matrress for his hospital bed and will follow up with [facility] for this during their next appt. Radha may possibly be interested in resuming community based PT services for strengthening and will talk to their provider regarding a consult for this. No other skilled therapy needs at this time. Goal: Radha will complete all necessary PT/OT components of the annual evaluation and receive all necessary education and adaptive equipment.-MET FOLLOW UP RECOMMENDATIONS: Follow up in one year for annual evaluation. OCCUPATIONAL THERAPY EVALUATION COMPLEXITY Identifying and reporting the complexity level of an evaluation focuses on the first three of these factors--profile and history, assessment and determination of deficits, and clinical decision making. These three factors must be scored and defensible documentation written to support the choice of a level. (Information taken from: https://www.aota.org) PROFILE AND HISTORY (including chart view) Brief history of medical and/or therapy records relating to the presenting problem (low complexity) ASSESSMENT & PERFORMANCE DEFICITS (select all that apply): Physical & Cognition 1-3 performance deficits (Low complexity) LEVEL OF CLINICAL DECISION MAKING Problem-focused assessment(s), consideration of a limited number of treatment options, presents with no comorbidities and modification of tasks or assistance is not necessary.(Low complexity) LOW COMPLEXITY Brief history of medical/or therapy records relating to the presenting problem. An assessment(s) that identifies 1-3 performance deficits that result in activity limitation and/or participating restrictions. Includes analysis of the occupational profile, analysis of date from problem- focused assessment(s), and consideration of a limited number of treatment options. Patient presents with no comorbidities that affect occupational performance. Modification of tasks or assistance with assessment(s) is not necessary to enable completion of evaluation component. * /el/ SATHISH PARDO MS, OTR/L OCCUPATIONAL THERAPIST Signed: 02/05/2023 09:25 SATHISH PARDO [facility]
--- OUTSIDE RECORDS SUMMARY | 2023-11-18 12:42 | XMS_ITS | Encounter Summary ---
Author Name Department of Vetera Affairs Organization Department of Vetera Affairs Address [address] [place] [id number] Support Name Relationship Address Phone WADE DEGROOT Next of Kin [address] [place] [address] WADE DEGROOT Emergency Contact [address] [place] [address] KTBIMALCHANTEL Next of [facility] [place] JIM DENNISON Emergency Contact VET VERBAL CON SENT FOR TELE GISELA [place] Insurance Providers: All historical and current Section [...] PART B Jul 12, 2004 PART B [id number] [phone] Kasie DEGROOT RED PATIENT MEDICARE (WNR) MEDICARE (M) PART A Oct 11, 2002 PART A [id number] [id number] [phone] Kasie DEGROOT RED PATIENT Selected Encounter This section includes the information on record at [place] for the Encounter. Date/Time Encounter Type Encounter Description Reason Provider Source Dec 13, 2022 09:03 AM HC PRO PHONE CALL 5-10 MIN TELEPHONE SCI ICD-10-CM Z73.6 Limitation of activities due to disability SUSANA HALEY IHEvelyn Encounter Template Text not used by [place] Assessments - Encounter Diagnoses This section includes the primary and secondary diagnoses documented for the Encounter. Date/Time Primary/Secondary Diagnosis Diagnosis Name Provider Source Dec 13, 2022 09:03 AM PRIMARY Limitation of activities due to disability SUSANA HALEY [facility] Dec 13, 2022 09:03 AM SECONDARY Paraplegia, unspecified SUSANA HALEY [facility] Plan of Treatment: Future Appointments (+ 6 months) and Future Tests (+/- 45 days) The Plan of Treatment section includes future care activities for the patient from all [place] [facility]. This section includes future appointments and future orders which are active, pending or scheduled. Future Appointments This section includes appointments that were scheduled to occur 6 months from the date of the Encounter, up to a maximum of 20 appointments. The data comes from all [facility]. Appointment Date/Time Appointment Type Appointme nt Facility Name Jan 30, 2023 10:30 AM AMBULATORY - [facility]AB [facility]IN [facility] Feb 05, 2023 08:30 AM AMBULATORY - RE[facility]AB MEDICIN [facility] Feb 05, 2023 09:00 AM AMBULATORY - REHAB MEDICIN [facility] Feb 05, 2023 10:30 AM AMBULATORY - REHAB MEDICIN [facility] Feb 05, 2023 11:00 AM AMBULATORY - REHAB MEDICIN [facility] Feb 05, 2023 01:00 PM AMBULATORY - REHAB MEDICIN [facility] Feb 05, 2023 02:00 PM AMBULATORY - REHAB MEDICIN [facility] Feb 05, 2023 02:30 PM AMBULATORY - REHAB MEDICIN [facility] Feb 08, 2023 02:00 PM AMBULATORY - REHAB MEDICIN [facility] Feb 13, 2023 11:00 AM AMBULATORY - REHAB MEDICIN [facility] Feb 13, 2023 01:00 PM AMBULATORY - REHAB MEDICIN E [facility] Jun 10, 2023 01:00 PM AMBULATORY - REHAB MEDICIN [facility] Advance Directives: All historical and current Section Date Range: From patient's date of to the date document was created. This section includes ALL of a patient's completed or amended [place] Advance and Rescinded Directives. The entries below indicate that a directive exists for the patient, but an actual copy is not included with this document. The data comes from all [facility]. Date Advance Directives Provider Source Feb 05, 2023 ADVANCE DIRECTIVE DISCUSSION GUSTAVO ABAD [facility] Encounter Notes: All associated encounter notes This section contains the clinical notes associated to the Encounter. Date/Time Encounter Note(s) Provider Source Dec 13, 2022 09:05 AM REPORT OF CONTACT: LOCAL TITLE: PATIENT CONTACT NOTE STANDARD TITLE: REPORT OF CONTACT DATE OF NOTE: DEC 13, 2022@09:05 ENTRY DATE: DEC 13, 2022@09:05:51 AUTHOR: SUSANA HALEY EXP COSIGNER: URGENCY: STATUS: COMPLETED Patient contact Name of : JIE DEGROOT Jagdish Name/Relationship of Contact if other than [place]: Wade Date & Time of Contact: Dec@09:06 Time spent on phone call and coordination/provision of care, planning, collection of supplies, and or research was between 5-10 minutes Type of Contact: Telephone Reason for Contact: called and reported the backrest is uncomfortable and would like to be seen Front Office Representative offered [facility] and she was agreeable, may have to schedule out a ways as she isnt comfortable [place] cities and their usual parts driver is down in [place]. She declined other needs. Clinic RTC placed for 90m /es/ SUSANA HALEY OCCUPATIONAL THERAPIST Signed: 12/13/2022 09:09 SUSANA HALEY [facility]
--- OUTSIDE RECORDS SUMMARY | 2023-11-18 12:42 | XMS_ITS | Encounter Summary ---
Author Name Department of Vetera Affairs Organization Department of Vetera Affairs Address [address] [place] [address] Support Name Relationship Address Phone WADE DEGROOT Next of Kin [address] [place] [address] WADE DEGROOT Emergency Contact [address] [place] [address] KTBIMALCHANTEL Next [facility] Kin [facility] [place] JIM DENNISON Emergency Contact VET VERBAL CON SENT FOR [facility] GISELA [place] Insurance Providers: All historical and current Section [...] PART B Jul 12, 2004 PART B [id number] [facility] [phone] Kasie DEGROOT RED PATIENT MEDICARE (WNR) MEDICARE (M) PART A Oct 11, 2002 PART A [id number] [id number] [phone] Kasie DEGROOT RED PATIENT Selected Encounter This section includes the information on record at [place] for the Encounter. Date/Time Encounter Type Encounter Description Reason Pro vider Source Jan 08, 2023 11:58 AM Outpatient Encounter TELEPHONE SCI [facility] Encounter Template Text not used by [place] Plan of Treatment: Future Appointments (+ 6 months) and Future Tests (+/- 45 days) The Plan of Treatment section includes future care activities for the patient from all [place] treatmentfacilities. This section includes future appointments and future orders which are active, pending or scheduled. Future Appointments This section includes appointments that were scheduled to occur 6 months from the date of the Encounter, up to a maximum of 20 appointments. The data comes from all [facility]. Appointment Date/Time Appointment Type Appointme nt Facility Name Jan 30, 2023 10:30 AM AMBULATORY - [facility] Feb 05, 2023 08:30 AM AMBULATORY - [facility] Feb 05, 2023 09:00 AM AMBULATORY - RE[facility]AB [facility] Feb 05, 2023 10:30 AM AMBULATORY - RE[facility]AB [facility] Feb 05, 2023 11:00 AM AMBULATORY - RE[facility]AB [facility] Feb 05, 2023 01:00 PM AMBULATORY - REHAB [facility]ICIN [facility] Feb 05, 2023 02:00 PM AMBULATORY - [facility]AB [facility] Feb 05, 2023 02:30 PM AMBULATORY - REHAB MEDICIN [facility] Feb 08, 2023 02:00 PM AMBULATORY - REHAB MEDICIN [facility] Feb 13, 2023 11:00 AM AMBULATORY - REHAB MEDICIN [facility] Feb 13, 2023 01:00 PM AMBULATORY - REHAB MEDICIN [facility] Jun 10, 2023 01:00 PM AMBULATORY - REHAB MEDICIN [facility] Jun 13, 2023 07:00 AM AMBULATORY - NONE [facility] Advance Directives: All historical and current Section Date Range: From patient's date of to the date document was created. This section includes ALL of a patient's completed or amended [place] Advance and Rescinded Directives. The entries below indicate that a directive exists for the patient, but an actual copy is not included with this document. The data comes from all [facility]. Date Advance Directives Provider Source Feb 05, 2023 ADVANCE DIRECTIVE DISCUSSION GUSTAVO ABAD [facility] Encounter Notes: All associated encounter notes This section contains the clinical notes associated to the Encounter. Date/Time Encounter Note(s) Provider Source Jan 08, 2023 11:58 AM REPORT OF CONTACT: LOCAL TITLE: APPOINTMENT SCHEDULING NOTE STANDARD TITLE: REPORT OF CONTACT DATE OF NOTE: JAN 08, 2023@11:58 ENTRY DATE: JAN 08, 2023@11:58:23 AUTHOR: PIERPONT,ROSA F EXP COSIGNER: URGENCY: STATUS: COMPLETED Attempted to schedule for SCI/D annual evaluation. Return to clinic (RTC) Contact attempt made to @ 1st attempt Telephone Other: Material Reclaimer offered SCI/D annual evaluation. Rindge requested life insurance underwriter's phone number so that Wade (spouse) can call back to schedule. Material Reclaimer provided direct phone number [phone]. Rindge denied needs or questions. /es/ Rosa Hill RN SCI/D Mineral Industry Teacher Signed: 01/08/2023 12:02 ROSA HILL [facility]
--- OUTSIDE RECORDS SUMMARY | 2023-11-18 12:42 | XMS_ITS | Encounter Summary ---
Author Name [facility] of [facility] Organization [facility] Address [address] [place] [id number] Support Name Relationship Address Phone WADE DEGROOT Next of Kin [address] [address] WADE DEGROOT Emergency Contact [address] [address] CHANTEL DEGROOT Next of Kin LA NENA ME JIM DENNISON Emergency Contact VET VERBAL CON SENT FOR TELEH ELLIELOW ME Insurance Providers: All historical and current Section [...] PART B Jul 12, 2004 PART B [id number] [facility] [phone] Kasie DEGROOT RED PATIENT MEDICARE (WNR) MEDICARE (M) PART A Oct 11, 2002 PART A [id number] [phone] Kasie DEGROOT RED PATIENT Selected Encounter This section includes the information on record at [place] for the Encounter. Date/Time Encounter Type Encounter Description Reason Provider Source Feb 05, 2023 08:30 AM MTMS BY PHARM ADDKateryna 15 MIN [facility] ICD-10-CM G82.20 Paraplegia, unspecified PIPO BARRETT Encounter Template Text not used by [place] Assessments - Encounter Diagnoses This section includes the primary and secondary diagnoses documented for the Encounter. Date/Time Primary/Secondary Diagnosis Diagnosis Name Provider Source Feb 05, 2023 08:30 AM PRIMARY Paraplegia, unspecified AURELIA BARRETT [facility] Feb 05, 2023 08:30 AM SECONDARY Neurogenic bowel, not elsewhere classified AURELIA BARRETT [facility] Feb 05, 2023 08:30 AM SECONDARY Neuromuscular dysfunction of bladder, unspecified AURELIA BARRETT [facility] Feb 05, 2023 08:30 AM SECONDARY Opioid dependence, uncomplicated AURELIA BARRETT [facility] Plan of Treatment: Future Appointments (+ 6 months) and Future Tests (+/- 45 days) The Plan of Treatment section includes future care activities for the patient from [facility] [place] [facility] This section includes future appointments and future orders which are active, pending or scheduled. Future Appointments This section includes appointments that were scheduled to occur 6 months from the date of the Encounter, up to a maximum of 20 appointments. The data comes from all [place] treatment facilities. Appointment Date/Time Appointment Type Appointme nt Facility Name Feb 08, 2023 02:00 PM AMBULATORY - REHAB MEDICIN E [facility] Feb 13, 2023 11:00 AM AMBULATORY - REHAB MEDICIN [facility] Feb 13, 2023 01:00 PM AMBULATORY - REHAB MEDICIN E [facility] Jun 10, 2023 01:00 PM AMBULATORY - REHAB MEDICIN E [facility] Jun 13, 2023 07:00 AM AM[place]ORY - NONE [place] [facility] Lab Results: +/- 30 days of the encounter This section includes the Chemistry and Hematology Lab Results on record with [place] for the patient. Radiology Reports and Pathology Reports are provided separately, in subsequent sections. Lab Results This section contains the Chemistry/Hematology Results that were resulted 30 days before or 30 daysafter the date of the Encounter. Date/Time Source Result Type Result - Unit Interpretation Reference Range Comment Feb 13, 2023 11:05 AM [facility] CYSTATIN C WITH EGFR Specimen Type: PLASMA No comment entered. Ordering Provider: ISAIAH BOWMAN Report Released Date/Time: Feb 05, 2023 03:10 PM Reporting Lab: [facility] [id number] Performing Lab: [facility] [id number] CYSTATIN C 1.27 H 0.51-1.05 CYST C EGFR(CKD-EPI ) 53 L >60 Feb 13, 2023 11:05 AM [facility] BASIC METABOLIC PANEL+MG Specimen Type: PLASMA No comment entered. Ordering Provider: ISAIAH BOWMAN Report Released Date/Time: Feb 05, 2023 03:10 PM Reporting Lab: [facility] [id number] Performing Lab: [facility] [id number] CREATININE 0.7 0.7-1.2 UREA NITROGEN 15 8-26 [...] 03:39 PM 225 lb 33 [place] [facility] Advance Directives: All historical and current Section Date Range: From patient's date of to the date document was created. This section includes ALL of a patient's completed or amended [place] Advance and Rescinded Directives. The entries below indicate that a directive exists for the patient, but an actual copy is not included with this document. The data comes from all [place] facilities. Date Advance Directives Provider Source Feb 05, 2023 ADVANCE DIRECTIVE DISCUSSION GUSTAVO ABAD [facility] Encounter Notes: All associated encounter notes This section contains the clinical notes associated to the Encounter. Date/Time Encounter Note(s) Provider Source Feb 05, 2023 09:20 AM SPINAL CORD INJURY NOTE: LOCAL TITLE: SCI/D ANNUAL EVALUATION RECOMMENDATIONS STANDARD TITLE: SPINAL CORD INJURY NOTE DATE OF NOTE: FEB 05, 2023@09:20 ENTRY DATE: FEB 05, 2023@09:20:47 AUTHOR: PIPO BARRETT EXP COSIGNER: URGENCY: STATUS: COMPLETED SCI/D ANNUAL EVALUATION RECOMMENDATIONS Has ADDENDA Pharmacy: It was great talking with you and your during your annual visit and going over your medications. I'm glad to hear things are going generally well. We did discuss some recommendations: 1. Ensure the naloxone (narcan) kit you have at home is within date, your pharmacy or the [facility] can provide you with an updated one if it is . 2. Keep monitoring for any side effects of medications especially increased fatigue, sedation or changes in cognition. These could be a sign of worsening kidney function or interactions of your current medications. Continue to follow up with your [facility] primary care provider and let us know if you have any questions or needs! /es/ PIPO BARRETT Pharmacist Signed: 02/05/2023 09:23 02/05/2023 ADDENDUM STATUS: COMPLETED OT/PT Recommendations: Everett Aguilar- It was nice to meet you today. We talked about several things during our session today, including that you have an upcoming w/c clinic appt where they will look at the backrest on your pwc, as it feels too small to you. You also asked about a new air mattress for your hospital bed. You have an upcoming appt. with wound clinic and you will ask the WOCN about that. You are going to ask your provider for a consult for a local, fee based PT to resume core strengthening exercises. You had no other skilled OT needs at this time and we will plan to follow up with you in one year. /es/ SATHISH PARDO MS, OTR/L OCCUPATIONAL THERAPIST Signed: 02/05/2023 09:32 02/05/2023 ADDENDUM STATUS: COMPLETED From Social Work: It was nice to meet you both today. I have sent out a blank copy of a Advance Directive (Health Care Directive) for your consideration. If you choose to complete, have two witnesses sign that are not your health care agents. Please bring in or mail a copy to the [facility] for your health care records. Please connect with [place] with the [facility] or your [facility] CVSO for possibly service connection increase. [facility]' direct phone number is [phone]. If you have any other questions or concerns, my direct number is [phone]. /es/ MAMADOU ABAD Principal Consultant Signed: 02/05/2023 15:35 02/05/2023 ADDENDUM STATUS: COMPLETED Silvia Aguilar, It was nice to meet you today. I will send out the information on Meals on Wheels, tips for eating out and a sample meal plan as we discussed. You shared your goal was to lose some weight and as a reminder I recommended gradual weight loss without over restricting. Consider reducing intake of fried foods, cutting back on portions of starches and increasing fruits and vegetables in your day. /el/ JOURDAN ARCHER Registered Dietitia Signed: 02/05/2023 15:49 02/06/2023 ADDENDUM STATUS: COMPLETED SCI/D Psychology: It was great to meet with you and Wade. Please continue to take your mood and anxiety medications as prescribed. The Psychology services available through SCI/D include: individual therapy for veterans, couple therapy, caregiver support sessions, and the following groups: SCI/D Support Groups (for Veterans Only): OR of the month (different participants depending on week) @ 1:00-2:00pm SCI/D Caregiver Support Groups (for any non-ALS Caregivers Only): of the month @ 1:00-2:00pm You can reach me directly at [phone] if you'd like to set up an appointment. A reminder about emergency resources - Veterans Crisis Line dial [phone] then press [phone], [phone], or local ER - to use if in distress. We will plan to see you at next year's annual evaluation if we don't hear from you sooner. Take care! ~ Dr. Binu Velez /el/ BINU VELEZ, PhD, STAFF PSYCHOLOGIST Signed: 02/06/2023 15:00 PIPO BARRETT [facility] Feb 05, 2023 08:03 AM PHARMACY NOTE: LOCAL TITLE: PHARMACOTHERAPY-CLINICAL PHARMACY NOTE STANDARD TITLE: PHARMACY NOTE DATE OF NOTE: FEB 05, 2023@08:03 ENTRY DATE: FEB 05, 2023@08:04:01 AUTHOR: PIPO BARRETT EXP COSIGNER: URGENCY: STATUS: COMPLETED [place] was educated regarding using Clinical Video Telehealth for encounter. understands Telehealth modality being used for this visit and option to be seen face to face if prefers. consents to be seen via Clinical Video Telehealth to HOME. CVT to HOME patient emergency contact information: Home address of record: [address] [place] [address] Where is patient located during today's CVT to home session? -home Emergency Phone Numbers for Patient: Who is in the home with the patient right now? - is present for the [facility] Emergency: Dial 911 or E911 ([phone]) and provide 's physical location National Veterans Crisis Line Press 1 JIE DEGROOT is a 77 year old scheduled for a SCI/D Pharmacy Annual Evaluation appointment which includes a review SCI/D pharmacotherapy and supply items. was verified by full name and . 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 Tobacco use: Denies Alcohol use: Denies Other drug use: Denies Medication management: - reports manages medications, without the use of a pill box, they have one, but don't use it -Of note 's medications are from non-VA pharmacy, has primary care at [facility], and f/u about every 3 months Compliance to medication regimen: -Denies missed doses Concerns [place] wishes to address in the AE pharmacy visit: -Denies any concerns/issues with medication, feels medications are going well, denies any signficant side effects #Bladder: Bladder is emptied by SP cath, typically changed every 3 weeks Working with urology in community, reports increased sticky sediment, adjusting size of SP catheter. Reports a blockage this past Saturday morning, couldn't flush, went to the ER and they were unable to flush, and ended up changing catheter, pending UA results. Does have f/u visit with PCP next Saturday. #Bowel: Colostomy. Supplies are provided by [employer] (online) and paid by Medicare. #Pain: Taking gabapentin, oxycodone, and acetaminophen Reports they have a naloxone kit and were given information on it in the past she is unsure if it is . #Spasticity: Taking baclofen for tightness/cramping/spasms Some increased spasms in legs lately, timeline similar to issues with sediment above #Falls: [place] denies any recent falls #Supplies - No concerns with supplies that come from the [facility], reports things are going well ======== OBJECTIVE: Active Outpatient Medications (including Supplies): Issue Date Status Last Fill Active Outpatient Medications Refills Expiration 1) BAG,LEG CONVEEN #[id number] Qty: 10 for 90 ACTIVE Issu:05-28-22 days Sig: USE 1 TOPICALLY DIRECTED Refills: 3 Last:05-28-22 Expr:05-29-23 2) UNDERPAD,BED ULTRASORB [id number] M#[id number] ACTIVE Issu:05-28-22 Qty: 40 for 30 days Sig: USE 1 PAD Refills: 11 Last:05-28-22 TOPICALLY NEEDED Expr:05-29-23 3) URINARY DRAINAGE BAG BARD #[id number] Qty: ACTIVE Issu:05-28-22 8 for 90 days Sig: USE BAG TOPICALLY Refills: 2 Last:01-08-23 DIRECTED Expr:05-29-23 Start Date Active Non-VA Medications Refills Expiration 1) Non-VA AMLODIPINE BESYLATE 10MG TAB ACTIVE SiMG MOUTH TWICE A DAY Taking 5mg daily QAM 2) Non-VA ARIPIPRAZOLE TAB SiMG MOUTH ACTIVE TWICE A DAY *Confirmed 3) Non-VA ATORVASTATIN CALCIUM 80MG TAB ACTIVE SiMG MOUTH EVERY DAY *Confirmed 4) Non-VA BACLOFEN 20MG TAB SiMG ACTIVE MOUTH FOUR TIMES A DAY Taking 40mg TID 5) Non-VA BUPROPION HCL 150MG 12HR SA TAB ACTIVE SiMG MOUTH TWICE A DAY *Confirmed 6) Non-VA CEPHALEXIN 250MG CAP SiMG ACTIVE MOUTH EVERY DAY *Confirmed 7) Non-VA CHOLECALCIF 25MCG (D3-1,000UNIT) ACTIVE TAB SiMCG MOUTH EVERY DAY *Confirmed 8) Non-VA DONEPEZIL HCL 10MG TAB SiMG ACTIVE MOUTH EVERY DAY *Confirmed 9) Non-VA DULOXETINE HCL 30MG EC CAP Sig: ACTIVE 60MG MOUTH TWICE A DAY *Confirmed 10) Non-VA FAMOTIDINE 20MG TAB SiMG ACTIVE MOUTH TWICE A DAY *Confirmed 11) Non-VA FUROSEMIDE 40MG TAB SiMG ACTIVE MOUTH TWICE A DAY *Confirmed 12) Non-VA GABAPENTIN 400MG CAP SiMG ACTIVE MOUTH THREE TIMES A DAY *Confirmed 13) Non-VA LORAZEPAM 0.5MG TAB Si.5MG ACTIVE MOUTH FOUR TIMES A DAY Taking 0.5mg TID and 1mg at bedtime 14) Non-VA MILK OF MAGNESIA SiML MOUTH ACTIVE EVERY DAY NEEDED *Confirmed - daily 15) Non-VA MULTIVITAMIN CAP/TAB Si ACTIVE TABLET MOUTH EVERY DAY *Confirmed 16) Non-VA OXYCODONE 5MG TAB SiMG ACTIVE MOUTH FOUR TIMES A DAY *Confirmed 17) Non-VA POTASSIUM CL 20MEQ SA TAB ACTIVE (DISPERSIBLE) SiMEQ MOUTH TWICE A DAY *Confirmed 18) Non-VA WARFARIN TAB Si.5MG MOUTH ACTIVE EVERY DAY Taking 5mg every Sat/, all other days 7.5mg 21 Total Medications Other medications/supplies: Acetaminophen 1000mg TID ALLERGIES/ADVERSE DRUG REACTIONS: AMOXICILLIN (May 28, 2022) MORPHINE (May 28, 2022) SULFA DRUGS (May 28, 2022) METOLAZONE (May 28, 2022) PIPERACILLIN (May 28, 2022) TAZOBACTAM SODIUM (May 28, 2022) Active problems - Computerized Problem List is the source for the followin. Dementia 2. COPD - Chronic Obstructive Pulmonary Disease ([facility] [id number]) 3. Chronic Pain Syndrome ([facility] [id number]) 4. HTN - Hypertension ([facility] [id number]) 5. Hyponatremia 6. Anemia ([facility] [id number]) 7. Supraventricular tachycardia 8. Diabetes Mellitus Type 2 ([facility] [id number]) 9. Constipation ([facility] [id number]) 10. 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 Autonomic dysreflexia 13. History of pressure injury 14. Abnormal liver function 15. History of Deep Vein Thrombosis ([facility] [id number]) 16. Tinnitus ([facility] [id number]) 17. Hearing Loss ([facility] [id number]) 18. Long-term current use of anticoagulant 19. Osteoporosis ([facility] [id number]) 20. Vitamin D Deficiency ([facility] [id number]) 21. Hyperlipidemia ([facility] [id number]) 22. Neurogenic Bladder ([facility] [id number]) 23. Neurogenic bowel 24. Continuous opioid dependence 25. Anxiety ([facility] [id number]) 26. Suprapubic urinary catheter in situ 27. Colostomy present 28. Paraplegia LABS: CREATININE 0.7 PLASMA (10/08/22 14:18) 0.7 PLASMA (05/28/22 15:31) CYSTATIN C: Collection DT Specimen Test Name Result Units Ref Range 10/08/2022 14:18 PLASMA CYSTATIN C 1.38 H mg/L 0.51 - 1.05 Lipid Panel: CHOLESTEROL 116 (05/28/22) TRIGLYCERIDE____ HDL 39 L (05/28/22) LDL CALCULATION 64 (05/28/22) MEASURED LDL____ Collection DT Spec HGBA1C 05/28/2022 15:31 BLOOD 5.8 No data available for: ALB/CREAT RATIO,UR Collection DT Spec WBC HGB HCT PLT MCV NEUT LYMPHS 10/08/2022 14:18 BLOOD 7.32 14.7 44.2 144 L 92.1 55.5 31.4 05/28/2022 15:31 BLOOD 6.27 12.9 L 40.2 L 183 90.7 SLT - Lab Tests Selected Collection DT Specimen Test Name Result Units Ref Range 10/08/2022 14:18 PLASMA GLUCOSE 94 mg/dL 70 - 100 10/08/2022 14:18 PLASMA SODIUM 138 mmol/L 136 - 145 10/08/2022 14:18 PLASMA POTASSIUM 3.9 mmol/L 3.5 - 5.1 10/08/2022 14:18 PLASMA CHLORIDE 101 mmol/L 98 - 107 10/08/2022 14:18 PLASMA CO2 28 mmol/L 22 - 29 10/08/2022 14:18 PLASMA ANION GAP 9 mmol/L 5 - 15 10/08/2022 14:18 PLASMA UREA NITROGEN 16 mg/dL 8 - 26 10/08/2022 14:18 PLASMA CREATININE 0.7 mg/dL 0.7 - 1.2 10/08/2022 14:18 PLASMA PROTEIN,TOTAL 7.6 g/dL 6.0 - 8.3 10/08/2022 14:18 PLASMA ALBUMIN 4.2 g/dL 3.5 - 5.2 10/08/2022 14:18 PLASMA CALCIUM 9.7 mg/dL 8.4 - 10.2 10/08/2022 14:18 PLASMA BILIRUBIN, TOTAL 0.6 mg/dL 0.2 - 1.2 10/08/2022 14:18 PLASMA AST/SGOT 22 U/L Ref: <=34 10/08/2022 14:18 PLASMA ALT/SGPT 29 U/L Ref: <=55 10/08/2022 14:18 PLASMA ALKALINE PHOSPHAT 96 U/L 40 - 150 MAGNESIUM 2.1 (10/08/22) TSH 2.42 (05/28/22) Collection DT Specimen Test Name Result Units Ref Range 10/08/2022 14:18 SERUM VIT D 25-OH,TOTAL 54 H ng/mL 12 - 50 PAIN: 0 (05/28/2022 14:06) Vitals: Temperature: 96.2 F [35.7 C] (05/28/2022 14:06) Blood Pressure: 104/67 (05/28/2022 14:06) Pulse: 80 (05/28/2022 14:06) Respiration: 14 (05/28/2022 14:06) Pain: 0 (05/28/2022 14:06) Height: 69 in [175.3 cm] (05/28/2022 14:06) Weight: 240 lb [108.86 kg] (05/28/2022 14:06) BMI: 35.5 ASSESSMENT: #Neurogenic Bladder: -Sediment and recent blockage of SP catheter resulting in ER visit - has f/u planned with urology and community primary care -F/u as directed #Neurogenic Bowel: -Stable, continue current regimen #Pain: -Gabapentin, oxycodone, acetaminophen -Reviewed opioid safety and interaction with benzo, verified naloxone education and kit ( to ensure it is within date) -LFTs WNL, renal function somewhat impaired per Cystatin C, however gabapentin still within reasonable dose per renal function -Pain is stable, continue current regimen and monitor with community providers #Muscle Spasticity: -Currently taking baclofen (120mg/day), high dose considering eGFR per Cystatin C, however denies any side effects. -Spasticity symptoms are managed with medication, continue current regimen with close monitoring for side effects and renal function with community providers. #Fall risk: -Medication that can increase risk of falls: amlodipine, aripiprazole, baclofen, bupropion, duloxetine, furosemide, gabapentin, lorazepam, and oxycodone -Medication that increase risk of harm from falls: warfain -No falls, using safety precautions, no recommendations for change at this time, continue to monitor with prescribing physician OTHER #Renal function Assessment -eGFR = 48mL/min based on cystatin C -CrCl estimated = 104.3mL/min -No medication adjustments needed based on CrCl, which is what most medications are renally adjusted by, however eGFR does indicate potential for renal impairment in SCI patients. All medications managed by community provider and pharmacy, will defer to them for any adjustments. -Counseled [place] and to monitor for side effects including increase SPORTS ANCHOR depressant effects which could be a sign of renal impairment and build up of medications that are renally dosed such as gabapentin and baclofen. #DDI Assessment -Several DDI found, primarily due to SPORTS ANCHOR depressant effect and CYP2D6 inhibition, however typically would manage based on reported side effects, denies and medications all managed by community provider, counseled and to monitor for any side effects and review with his primary care for any changes. -Discussed opioid/benzo combination and interaction, verfies they have been given education and a naloxone kit in the past, she is unsure if it has but she will check and request a new one if it has . PHARMACOTHERAPY RECOMMENDATIONS/PLAN: -No changes recommended today -Updated Non-VA med list -Reviewed need to monitor for side effects including SPORTS ANCHOR depression with community primary care and specialists due to renal function and DDIs - will ensure naloxone kit is not , she can request updated one if it has , she v/u. Time Spent: 60 minutes F/u: 1 yr for SCI/D annual or sooner if needed /es/ PIPO BARRETT Pharmacist Signed: 02/05/2023 09:20 Receipt Acknowledged By: * AWAITING SIGNATURE * ISAIAH BOWMAN [facility] N [facility]
--- OUTSIDE RECORDS SUMMARY | 2023-11-18 12:42 | XMS_ITS | Encounter Summary ---
Author Name [facility] Organization [facility] Address [address] [place] [address] Support Name Relationship Address Phone JUAN A DEGROTOYN Next of Kin [address] [place] [address] WADE DEGROOT Emergency Contact [address] [facility] [place] [address] CHANTEL DEGROOT Next of Robel [facility], [place] JIM DENNISON Emergency Contact [facility] [employer] CON SENT FOR TELEH [place], [place] Insurance Providers: All historical and current Section [...] PART B Jul 12, 2004 PART B [id number] Kasie DEGROOT RED PATIENT MEDICARE (WNR) MEDICARE (M) PART A Oct 11, 2002 PART A [id number] Kasie DEGROOT RED PATIENT Selected Encounter This section includes the information on record at [place] for the Encounter. Date/Time Encounter Type Encounter Description Reason Provider Source Feb 05, 2023 10:30 AM OFF/OP EST MARCH X REQ PHY/QHP [facility] ICD-10-CM G82.20 Paraplegia, unspecified ERICKA ZAMORA Encounter Template Text not used by [place] Assessments - Encounter Diagnoses This section includes the primary and secondary diagnoses documented for the Encounter. Date/Time Primary/Secondary Diagnosis Diagnosis Name Provider Source Feb 05, 2023 10:30 AM PRIMARY Paraplegia, unspecified ERICKA ZAMORA [facility] Plan of Treatment: Future Appointments (+ 6 months) and Future Tests (+/- 45 days) The Plan of Treatment section includes future care activities for the patient [facility] This section includes future appointments and future orders which are active, pending or scheduled. Future Appointments This section includes appointments that were scheduled to occur 6 months from the date of the Encounter, up to a maximum of 20 appointments. The data comes from all [place] treatment facilities. Appointment Date/Time Appointment Type Appointme nt Facility Name Feb 08, 2023 02:00 PM AMBULATORY - REHAB MEDICIN E [facility] Feb 13, 2023 11:00 AM AMBULATORY - RE[facility]AB MEDICIN [facility] Feb 13, 2023 01:00 PM AMBULATORY - REHAB MEDICIN E [facility] Jun 10, 2023 01:00 PM AMBULATORY - REHAB MEDICIN E [facility] Jun 13, 2023 07:00 AM AMBULATORY - NONE [place] [facility] Lab Results: +/- 30 days of the encounter This section includes the Chemistry and Hematology Lab Results on record with [place] for the patient. Radiology Reports and Pathology Reports are provided separately, in subsequent sections. Lab Results This section contains the Chemistry/Hematology Results that were resulted 30 days before or 30 daysafter the date of the Encounter. Date/Time Source Result Type Result - Unit Interpretation Reference Range Comment Feb 13, 2023 11:05 AM [facility] CYSTATIN C WITH EGFR Specimen Type: PLASMA No comment entered. Ordering Provider: ISAIAH BOWMAN Report Released Date/Time: Feb 05, 2023 03:10 PM Reporting Lab: [facility] [id number] Performing Lab: [facility] [id number] CYSTATIN C 1.27 H 0.51-1.05 CYST C EGFR(CKD-EPI ) 53 L >60 Feb 13, 2023 11:05 AM [facility] BASIC METABOLIC PANEL+MG Specimen Type: PLASMA No comment entered. Ordering Provider: ISAIAH BOWMAN Report Released Date/Time: Feb 05, 2023 03:10 PM Reporting Lab: [facility] [id number] Performing Lab: [facility] [id number] CREATININE 0.7 0.7-1.2 UREA NITROGEN 15 8-26 [...] 03:39 PM 225 lb 33 [place] [facility] Advance Directives: All historical and current Section Date Range: From patient's date of to the date document was created. This section includes ALL of a patient's completed or amended [place] Advance and Rescinded Directives. The entries below indicate that a directive exists for the patient, but an actual copy is not included with this document. The data comes from all [place] facilities. Date Advance Directives Provider Source Feb 05, 2023 ADVANCE DIRECTIVE DISCUSSION GUSTAVO ABAD [facility] Encounter Notes: All associated encounter notes This section contains the clinical notes associated to the Encounter. Date/Time Encounter Note(s) Provider Source Feb 05, 2023 10:34 AM [facility] N[facility] NOTE: LOCAL TITLE: SCI/D CLINIC NURSE NOTE STANDARD TITLE: [facility] NURSING NOTE DATE OF NOTE: FEB 05, 2023@10:34 ENTRY DATE: FEB 05, 2023@10:34:29 AUTHOR: ERICKA ZAMORA COSIGNER: URGENCY: STATUS: COMPLETED Appointment Check-In... TYPE OF VISIT: Appointment Check In Type of appointment: VVC Appointment Patient's identity verified using two identifiers. Patient Contact Details: Best contact number for backup/emergency communication with patient: Patient Location/Surroundings During Visit: Patient location during visit: Home [address], [place] [address] Patient confirms location is safe and private for visit. Visit conducted by synchronous telehealth. Patient verbal consent for [facility] visit obtained. Location/emergency number confirmed. *Environment surveyed and all participants identified. Virtual conference room locked. REASON FOR VISIT: SCI/D Annual Evaluation-Dr. Bowman ALLERGIES: AMOXICILLIN (May 28, 2022) MORPHINE (May [...] 100% (05/28/2022 14:06) Pain: 0 (05/28/2022 14:06) Pain Screening: * Are you having significant pain that you want to talk to your provider about today? PAIN SCREEN: Patient is not having significant pain that they wish to discuss with their provider today. Medication Reconciliation Active Outpatient Medications (excluding Supplies): Non-VA Medications Status ========= 1) Non-VA ACETAMINOPHEN 500MG TAB 1000MG MOUTH THREE ACTIVE TIMES A DAY NEEDED 2) Non-VA AMLODIPINE BESYLATE 2.5MG TAB 5MG MOUTH EVERY ACTIVE MORNING 3) Non-VA ARIPIPRAZOLE TAB 2MG MOUTH TWICE A DAY ACTIVE 4) Non-VA ATORVASTATIN CALCIUM 80MG TAB 40MG MOUTH EVERY ACTIVE DAY 5) Non-VA BACLOFEN 20MG TAB 40MG MOUTH THREE TIMES A DAY ACTIVE 6) Non-VA BUPROPION HCL 150MG 12HR SA TAB 150MG MOUTH ACTIVE TWICE A DAY 7) Non-VA CEPHALEXIN 250MG CAP 250MG MOUTH EVERY DAY ACTIVE 8) Non-VA CHOLECALCIF 25MCG (D3-1,000UNIT) TAB 25MCG ACTIVE MOUTH EVERY DAY 9) Non-VA DONEPEZIL HCL 10MG TAB 5MG MOUTH EVERY DAY ACTIVE 10) Non-VA DULOXETINE HCL 30MG EC CAP 60MG MOUTH TWICE A ACTIVE DAY 11) Non-VA FAMOTIDINE 20MG TAB 20MG MOUTH TWICE A DAY ACTIVE 12) Non-VA FUROSEMIDE 40MG TAB 40MG MOUTH TWICE A DAY ACTIVE 13) Non-VA GABAPENTIN 400MG CAP 400MG MOUTH THREE TIMES A ACTIVE DAY 14) Non-VA LORAZEPAM 0.5MG TAB 0.5MG MOUTH THREE TIMES A ACTIVE DAY AND 1MG MOUTH AT BEDTIME 15) Non-VA MILK OF MAGNESIA 30ML MOUTH EVERY DAY ACTIVE NEEDED 16) Non-VA MULTIVITAMIN CAP/TAB 1 TABLET MOUTH EVERY DAY ACTIVE 17) Non-VA NALOXONE HCL 4MG/SPRAY SOLN NASAL SPRAY 1 DOSE ACTIVE ONE NOSTRIL DIRECTED NEEDED 18) Non-VA OXYCODONE 5MG TAB 10MG MOUTH FOUR TIMES A DAY ACTIVE 19) Non-VA POTASSIUM CL 20MEQ SA TAB (DISPERSIBLE) 20MEQ ACTIVE MOUTH TWICE A DAY 20) Non-VA WARFARIN TAB 5MG MOUTH SUN/THURS AND 7.5MG ACTIVE MOUTH ALL OTHER DAYS INPT MEDICATIONS:NONE Patient is at annual evaluation and pharmacy will review medications with patient. Influenza Immunization: The patient has received the seasonal influenza vaccine for the current season at another location. Documented: INFLUENZA, UNSPECIFIED FORMULATION Historical Date Administered: Oct 2022 Exact date unknown Outside Location: [facility] Information Source: FROM PATIENT'S RECALL Comment: 's recall Herpes Zoster (Shingles) Vaccine: Virtual/Telehealth Visit - Patient educated on the need for receiving Herpes Zoster (Shingles) immunization either at [facility] or outside facility. COVID-19 Immunization Booster: Virtual/Telehealth Visit - Patient educated on the need for receiving COVID-19 (SARS-CoV-2) booster either at [facility] or outside facility. ADV DIR Notification and Screening: ADVANCE DIRECTIVE NOTIFICATION: I was unable to give the patient written notification of the following rights because: Comment: Declined ADVANCE DIRECTIVE SCREENING: Does patient have an Advance Directive? The patient does not have an Advance Directive. The patient does not wish to create an Advance Directive for health care. 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 The /caregiver was informed that we will continue to ask this screening question every 5 years. They can contact their provider/healthcare team if they have concerns about exposures and would like to be screened sooner. Printed information was offered and provided if desired. /el/ Ericka Zamora LPN [facility] Staff Nurse Signed: 02/05/2023 10:46 ERICKA ZAMORA [facility]
--- OUTSIDE RECORDS SUMMARY | 2023-11-18 12:42 | XMS_ITS | Continuity of Care Document ---
Author Name [facility] Organization [facility] Care Team Providers Care Tuber Machine Operator Helper Name Role Phone [facility] Unavailable Unavailable Problems Combined list of problems from 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 It does not include entries that were removed or entered in error. Problem Status Onset Date Problem Type Date of Resolution Comments Source Abnormal liver function Active Condition [facility] Anemia ([facility] 064993526) Active Condition [facility] Anxiety ([facility] [id number]) Active Condition [facility] Autonomic dysreflexia Active Condition [facility] Chronic Pain Syndrome ([facility] 417615041) Active Condition [facility] Colostomy present Active Condition [facility] Constipation ([facility] 40773550) Active Condition [facility] Continuous opioid dependence Active Condition [facility] COPD - Chronic Obstructive Pulmonary Disease ([facility] 52602005) Active Condition [facility] Dementia Active Condition [facility] Depression ([facility] 47468537) Active Condition [facility] Diabetes Mellitus Type 2 ([facility] 16490596) Active Condition [facility] Ependymoma of spinal cord Active Condition [facility] Hearing Loss ([facility] 69216183) Active Condition [facility] History of Deep Vein Thrombosis ([facility] 075051714) Active Condition [facility] History of pressure injury Active Condition [facility] HTN - Hypertension ([facility] 24769145) Active Condition [facility] Hyperlipidemia ([facility] 53110534) Active Condition [facility] Hyponatremia Active Condition [facility] Long-term current use of anticoagulant Active Condition [facility] Neurogenic Bladder ([facility] 649069036) Active Condition [facility] Neurogenic bowel Active Condition [facility] Osteoporosis ([facility] 27130291) Active Condition [facility] Paraplegia Active Condition [facility] Spasticity Active Condition [facility] Suprapubic urinary catheter in situ Active Condition [facility] Supraventricular tachycardia Active Condition [facility] Tinnitus ([facility] 50772655) Active Condition [facility] Vitamin D Deficiency ([facility] 5279653) Active Condition [facility] Diagnosis: ICD-10-CM Z73.6 Limitation of activities due to disability Active Diagnosis [facility] Diagnosis: ICD-10-CM G82.20 Paraplegia, unspecified Active Diagnosis [facility] Diagnosis: ICD-10-CM Z43.3 Encounter for attention to colostomy Active Diagnosis [facility] Diagnosis: ICD-10-CM Z71.3 Dietary counseling and surveillance Active Diagnosis [facility] Diagnosis: ICD-10-CM F32.A Depression, unspecified Active Diagnosis [facility] Diagnosis: ICD-10-CM R26.9 Unspecified abnormalities of gait and mobility Active Diagnosis [facility] Diagnosis: ICD-10-CM R54 Age-related physical debility Active Diagnosis [facility] Diagnosis: ICD-10-CM C72.0 Malignant neoplasm of spinal cord Active Diagnosis [facility] Medications Combined list of outpatient medications from 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Medications provided include 1) outpatient medications from the last 15 months, and 2) patient-reported medications. Medication Details Route Status Patient Instructions Prescription Expires Prescription Number Last Dispense Date Ordering Provider Order Date Source ACETAMINOPH EN 500MG TAB TAKE TWO TABLETS BY MOUTH THREE TIMES A DAY NEEDED ORALLY ACTIVE Jagdish BARRETT 2022 [facility] AMLODIPINE BESYLATE 2.5MG TAB TAKE TWO TABLETS BY MOUTH EVERY MORNING ORALLY ACTIVE Jagdish BARRETT 2022 [facility] AMOX TR-POTASSIU M CLAVULANATE (AMOXICILLI N/POTASSIUM CLAV), 875-125 MG, TABLET, ORAL, EXPO, 20 ea. BOTTLE Active [id number] 2022 Pharmac y Data Transac tion Service Facilit y ARIPIPRAZOL E TAB TAKE 2MG BY MOUTH TWICE A DAY ORALLY ACTIVE Jey HANSON 2021 [facility] ATORVASTATI N [place] 80MG TAB TAKE ONE-HALF TABLET BY MOUTH EVERY DAY ORALLY ACTIVE Jey HANSON 2021 [facility] BACLOFEN 20MG TAB TAKE TWO TABLETS BY MOUTH THREE TIMES A DAY ORALLY ACTIVE Jagdish BARRETT N 2022 [facility] BUPROPION HCL 150MG 12HR TAB,SA TAKE ONE TABLET BY MOUTH TWICE A DAY ORALLY ACTIVE MARGIE,Jey BASURTO 2021 [facility] CEPHALEXIN 250MG CAP TAKE 1 CAPSULE BY MOUTH EVERY DAY ORALLY ACTIVE GRANDIA,Jey BASURTO 2021 [facility] CHOLECALCIF GILSON 25MCG (1,000UNIT) TAB TAKE ONE TABLET BY MOUTH EVERY DAY ORALLY ACTIVE GRANDIA,Jey BASURTO 2021 [facility] DONEPEZIL HCL 10MG TAB TAKE ONE-HALF TABLET BY MOUTH EVERY DAY ORALLY ACTIVE IA,Jey BASURTO 2021 [facility] DULOXETINE HCL 30MG CAP,EC TAKE 2 CAPSULES BY MOUTH TWICE A DAY ORALLY ACTIVE GRANDIA,Jey BASURTO 2021 [facility] FAMOTIDINE 20MG TAB TAKE ONE TABLET BY MOUTH TWICE A DAY ORALLY ACTIVE GRANDIA,Jey BASURTO 2021 [facility] FUROSEMIDE 40MG TAB TAKE ONE TABLET BY MOUTH TWICE A DAY ORALLY ACTIVE GRANDIA,Jey BASURTO 2021 [facility] GABAPENTIN 400MG CAP TAKE 1 CAPSULE BY MOUTH THREE TIMES A DAY ORALLY ACTIVE IA,Jey BASURTO 2021 [facility] LORAZEPAM 0.5MG TAB TAKE ONE TABLET BY MOUTH THREE TIMES A DAY AND TAKE TWO TABLETS BY MOUTH AT BEDTIME ORALLY ACTIVE Jagdish BARRETT 2022 [facility] MILK OF MAGNESIA TAKE 30ML BY MOUTH EVERY DAY NEEDED ORALLY ACTIVE GRANDIA,Jey BASURTO 2021 [facility] MULTIVITAMI NS CAP/TAB TAKE ONE TABLET BY MOUTH EVERY DAY ORALLY ACTIVE IA,Jey BASURTO 2021 [facility] NALOXONE HCL 4MG/SPRAY SOLN,SPRAY, NASAL SPRAY 1 DOSE IN ONE NOSTRIL DIRECTED PRN NOSTRI L ACTIVE Jagdish BARRETT 2022 [facility] OXYCODONE HCL (OXYCODONE HCL), 10 MG, TABLET, ORAL, [employer] 100 ea. BOTTLE Active [id number] 2022 Pharmac y Data Transac tion Service Facilit y OXYCODONE HCL 5MG TAB TAKE TWO TABLETS BY MOUTH FOUR TIMES A DAY ORALLY ACTIVE Jagdish BARRETT N 2022 [facility] POTASSIUM CHLORIDE (potassium chloride), 20 MEQ, TAB ER PRT, ORAL, [employer], 100 ea. BOTTLE Cancele d [id number] : 2022 Pharmac y Data Transac tion Service Facilit y POTASSIUM CHLORIDE 20MEQ TAB,SA (DISPERSIBL E) TAKE ONE TABLET BY MOUTH TWICE A DAY ORALLY ACTIVE Jey HANSON 2021 [facility] WARFARIN SODIUM (warfarin sodium), 5 MG, TABLET, ORAL, [employer] 1000 ea. BOTTLE Cancele d [id number] : 2022 Pharmac y Data Transac tion Service Facilit y WARFARIN SODIUM (WARFARIN SODIUM), 5 MG, TABLET, ORAL, EXPO, 1000 ea. BOTTLE Cancele d [id number] : 2022 Pharmac y Data Transac tion Service Facilit y WARFARIN TAB TAKE 5MG BY MOUTH SUN/THUR S AND TAKE 7.5MG BY MOUTH ALL OTHER DAYS ORALLY ACTIVE Jagdish BARRETT N 2022 [facility] Allergies, Adverse Reactions, Alerts Combined list of allergies from 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 It does not include entries that were removed or entered in error. Substance Category Reaction Severity Reaction type Status Date Reported Comments Source AMOXICILLIN Propensity to adverse reactions to drug (finding) Eruption [facility] 2 [facility] METOLAZONE Propensity to adverse reactions to drug (finding) Itching active 2 [place] [facility] MORPHINE Propensity to adverse reactions to drug (finding) Delirium active 2 [place] [facility] PIPERACILLIN Propensity to adverse reactions to drug (finding) Eruption active 2 [facility] SULFA DRUGS Propensity to adverse reactions to drug (finding) Eruption active 2 [facility] TAZOBACTAM SODIUM Propensity to adverse reactions to drug (finding) Eruption active 2 [facility] Immunizations Combined list of available immunizations from the 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 Immunization Series Date Given Administered By Site Reaction Lot Number CVX Code Drug Cloud Subject Matter Expert Status Comments Source INFLUENZA, UNSPECIFIED FORMULATION 2021 88 complet ed 's recall [facility] TD (ADULT), 5 LF TETANUS TOXOID, PRESERVATIVE FREE, ADSORBED 2021 113 complet ed [facility] INFLUENZA, UNSPECIFIED FORMULATION 2020 88 complet ed [facility] COVID-19 (PFIZER), MRNA, LNP-S, PF, 30 MCG/0.3 ML DOSE 3 2020 208 complet ed [facility] COVID-19 (PFIZER), MRNA, LNP-S, PF, 30 MCG/0.3 ML DOSE 2 2020 208 complet ed [facility] COVID-19 (PFIZER), MRNA, LNP-S, PF, 30 MCG/0.3 ML DOSE 1 2020 208 complet ed [facility] PNEUMOCOCCAL CONJUGATE PCV [address] [facility] ZOSTER LIVE [address] [facility] PNEUMOCOCCAL POLYSACCHARID E PPV23 2010 33 complet ed [facility] TDAP [address] [facility] Results Combined list of recent chemistry, hematology and other laboratory results from Department of Defense and Veterans Affairs, ranging from 15 months to all on record, depending upon the facility. Order Name Results Value Reference Range Date Interpretation Specimen Comments Source CYSTATIN C WITH EGFR CYSTATIN C [MASS/VOLU ME] IN SERUM OR PLASMA 1.27 0.51 - 1.05 02/13 H Specimen Type: PLASMA No comment entered. Ordering Provider: ANKUSH BOWMAN Report Released Date/Time: Feb 05, 2023 03:10 PM Reporting Lab: [facility] [address] Performing Lab: [facility] [address] [place] [facility] CYSTATIN C WITH EGFR CYSTATIN C AND GLOMERULAR FILTRATION RATE BY CYSTATIN C-BASED FORMULA PANEL - SERUM OR PLASMA 53 60 02/13 L Specimen Type: PLASMA No comment entered. Ordering Provider: ANKUSH BOWMAN Report Released Date/Time: Feb 05, 2023 03:10 PM Reporting Lab: [facility] [address] Performing Lab: [facility] [address] [place] [facility] BASIC METABOLI C PANEL+MG CREATININE [MASS/VOLU ME] IN SERUM OR PLASMA 0.7 0.7 - 1.2 02/13 Specimen Type: PLASMA No comment entered. Ordering Provider: ANKUSH BOWMAN Report Released Date/Time: Feb 05, 2023 03:10 PM Reporting Lab: [facility] [address] Performing Lab: [facility] [address] [place] [facility] BASIC METABOLI C PANEL+MG UREA NITROGEN [MASS/VOLU ME] IN SERUM OR PLASMA 15 8 - 26 02/13 Specimen Type: PLASMA No comment entered. Ordering Provider: ANKUSH BOWMAN Report Released Date/Time: Feb 05, 2023 03:10 PM Reporting Lab: [facility] [address] Performing Lab: [facility] [address] [place] [facility] BASIC METABOLI C PANEL+MG GLUCOSE [MASS/VOLU ME] IN SERUM OR PLASMA 140 70 - 100 02/13 H Specimen Type: PLASMA No comment entered. Ordering Provider: ANKUSH BOWMAN Report Released Date/Time: Feb 05, 2023 03:10 PM Reporting Lab: [facility] [address] Performing Lab: [facility] [address] [place] [facility] BASIC METABOLI C PANEL+MG SODIUM [MOLES/VOL UME] IN SERUM OR PLASMA 135 136 - 145 02/13 L Specimen Type: PLASMA No comment entered. Ordering Provider: ANKUSH BOWMAN Report Released Date/Time: Feb 05, 2023 03:10 PM Reporting Lab: [facility] [address] Performing Lab: [facility] [address] [place] [facility] BASIC METABOLI C PANEL+MG POTASSIUM [MOLES/VOL UME] IN SERUM OR PLASMA 4.0 3.5 - 5.1 02/13 Specimen Type: PLASMA No comment entered. Ordering Provider: ANKUSH BOWMAN Report Released Date/Time: Feb 05, 2023 03:10 PM Reporting Lab: [facility] [address] Performing Lab: [facility] [address] [place] [facility] BASIC METABOLI C PANEL+MG CHLORIDE [MOLES/VOL UME] IN SERUM OR PLASMA 99 98 - 107 02/13 Specimen Type: PLASMA No comment entered. Ordering Provider: ANKUSH BOWMAN Report Released Date/Time: Feb 05, 2023 03:10 PM Reporting Lab: [facility] [address] Performing Lab: [facility] [address] [place] [facility] BASIC METABOLI C PANEL+MG CARBON DIOXIDE, TOTAL [MOLES/VOL UME] IN SERUM OR PLASMA 29 - 29 02/13 Specimen Type: PLASMA No comment entered. Ordering Provider: ANKUSH BOWMAN Report Released Date/Time: Feb 05, 2023 03:10 PM Reporting Lab: [facility] [address] Performing Lab: [facility] [address] [place] [facility] BASIC METABOLI C PANEL+MG CALCIUM [MASS/VOLU ME] IN SERUM OR PLASMA 9.2 8.4 - 10.2 02/13 Specimen Type: PLASMA No comment entered. Ordering Provider: ANKUSH BOWMAN Report Released Date/Time: Feb 05, 2023 03:10 PM Reporting Lab: [facility] [address] Performing Lab: [facility] [address] [place] [facility] BASIC METABOLI C PANEL+MG MAGNESIUM [MASS/VOLU ME] IN SERUM OR PLASMA 2.0 1.6 - 2.6 02/13 Specimen Type: PLASMA No comment entered. Ordering Provider: ANKUSH BOWMAN Report Released Date/Time: Feb 05, 2023 03:10 PM Reporting Lab: [facility] [address] Performing Lab: [facility] [address] [place] [facility] BASIC METABOLI C PANEL+MG ANION GAP IN SERUM OR PLASMA 7 5 - 15 02/13 Specimen Type: PLASMA No comment entered. Ordering Provider: ANKUSH BOWMAN Report Released Date/Time: Feb 05, 2023 03:10 PM Reporting Lab: [facility] [address] Performing Lab: [facility] [address] [place] [facility] BASIC METABOLI C PANEL+MG GLOMERULAR FILTRATION RATE/1.73 SQ M.PREDICTE D [VOLUME RATE/AREA] IN SERUM, PLASMA OR BLOOD BY CREATININE -BASED FORMULA (CKD-EPI) >90 60 02/13 Specimen Type: PLASMA No comment entered. Ordering Provider: ANKUSH BWOMAN Report Released Date/Time: Feb 05, 2023 03:10 PM Reporting Lab: [facility] [address] Performing Lab: [facility] [address] [place] [facility] URINALYS IS COLOR OF URINE YELLOW 10/08 Specimen Type: URINE No comment entered. Ordering Provider: ANKUSH BOWMAN Report Released Date/Time: Sep 24, 2022 01:55 PM Reporting Lab: [facility] [address] Performing Lab: [facility] [address] [place] [facility] URINALYS IS SPECIFIC GRAVITY OF URINE 1.023 1.003 - 1.035 10/08 Specimen Type: URINE No comment entered. Ordering Provider: ANKUSH BOWMAN Report Released Date/Time: Sep 24, 2022 01:55 PM Reporting Lab: [facility] [address] Performing Lab: [facility] [address] [place] [facility] URINALYS IS BILIRUBIN. TOTAL [PRESENCE] IN URINE BY TEST STRIP NEGATIVE 10/08 Specimen Type: URINE No comment entered. Ordering Provider: ANKUSH BOWMAN Report Released Date/Time: Sep 24, 2022 01:55 PM Reporting Lab: [facility] [address] Performing Lab: [facility] [address] [place] [facility] URINALYS IS KETONES [MASS/VOLU ME] IN URINE BY TEST STRIP NEGATIVE 10/08 Specimen Type: URINE No comment entered. Ordering Provider: ANKUSH BOWMAN Report Released Date/Time: Sep 24, 2022 01:55 PM Reporting Lab: [facility] [address] Performing Lab: [facility] [address] [place] [facility] URINALYS IS GLUCOSE [MASS/VOLU ME] IN URINE BY TEST STRIP NEGATIVE 10/08 Specimen Type: URINE No comment entered. Ordering Provider: ANKUSH BOWMAN Report Released Date/Time: Sep 24, 2022 01:55 PM Reporting Lab: [facility] [address] Performing Lab: [facility] [address] [place] [facility] URINALYS IS PROTEIN [MASS/VOLU ME] IN URINE BY TEST STRIP 30 10/08 Specimen Type: URINE No comment entered. Ordering Provider: ANKUSH BOWMAN Report Released Date/Time: Sep 24, 2022 01:55 PM Reporting Lab: [facility] [address] Performing Lab: [facility] [address] [place] [facility] URINALYS IS PH OF URINE BY TEST STRIP 7.5 5.0 - 8.0 10/08 Specimen Type: URINE No comment entered. Ordering Provider: ANKUSH BOWMAN Report Released Date/Time: Sep 24, 2022 01:55 PM Reporting Lab: [facility] [address] Performing Lab: [facility] [address] [place] [facility] URINALYS IS LEUKOCYTES [#/AREA] IN URINE SEDIMENT BY MICROSCOPY HIGH POWER FIELD >180 0 - 7 10/08 H Specimen Type: URINE No comment entered. Ordering Provider: ANKUSH BOWMAN Report Released Date/Time: Sep 24, 2022 01:55 PM Reporting Lab: [facility] [address] Performing Lab: [facility] [address] [place] [facility] URINALYS IS BACTERIA [PRESENCE] IN URINE SEDIMENT BY LIGHT MICROSCOPY MANY 10/08 Specimen Type: URINE No comment entered. Ordering Provider: ANKUSH BOWMAN Report Released Date/Time: Sep 24, 2022 01:55 PM Reporting Lab: [facility] [address] Performing Lab: [facility] [address] [place] [facility] URINALYS IS ERYTHROCYT ES [#/AREA] IN URINE SEDIMENT BY MICROSCOPY HIGH POWER FIELD 33 0 - 3 10/08 H Specimen Type: URINE No comment entered. Ordering Provider: ANKUSH BOWMAN Report Released Date/Time: Sep 24, 2022 01:55 PM Reporting Lab: [facility] [address] Performing Lab: [facility] [address] [place] [facility] URINALYS IS APPEARANCE OF URINE EX.TURBI D 10/08 Specimen Type: URINE No comment entered. Ordering Provider: ANKUSH BOWMAN Report Released Date/Time: Sep 24, 2022 01:55 PM Reporting Lab: [facility] [address] Performing Lab: [facility] [address] [place] [facility] URINALYS IS EPITHELIAL CELLS.SQUA MOUS [#/AREA] IN URINE SEDIMENT BY MICROSCOPY HIGH POWER FIELD 1 10/08 Specimen Type: URINE No comment entered. Ordering Provider: ANKUSH BOWMAN Report Released Date/Time: Sep 24, 2022 01:55 PM Reporting Lab: [facility] [address] Performing Lab: [facility] [address] [place] [facility] URINALYS IS HEMOGLOBIN [PRESENCE] IN URINE BY TEST STRIP 1+ 10/08 Specimen Type: URINE No comment entered. Ordering Provider: ANKUSH BOWMAN Report Released Date/Time: Sep 24, 2022 01:55 PM Reporting Lab: [facility] [address] Performing Lab: [facility] [address] [place] [facility] URINALYS IS NITRITE [PRESENCE] IN URINE BY TEST STRIP NEGATIVE 10/08 Specimen Type: URINE No comment entered. Ordering Provider: ANKUSH BOWMAN Report Released Date/Time: Sep 24, 2022 01:55 PM Reporting Lab: [facility] [address] Performing Lab: [facility] [address] [place] [facility] URINALYS IS LEUKOCYTE CLUMPS [#/VOLUME] IN URINE BY AUTOMATED COUNT PRESENT 10/08 Specimen Type: URINE No comment entered. Ordering Provider: ANKUSH BOWMAN Report Released Date/Time: Sep 24, 2022 01:55 PM Reporting Lab: [facility] [address] Performing Lab: [facility] [address] [place] [facility] URINALYS IS LEUKOCYTE ESTERASE [PRESENCE] IN URINE BY TEST STRIP 500 10/08 Specimen Type: URINE No comment entered. Ordering Provider: ANKUSH BOWMAN Report Released Date/Time: Sep 24, 2022 01:55 PM Reporting Lab: [facility] [address] Performing Lab: [facility] [address] [place] [facility] ALBUMIN ALBUMIN [MASS/VOLU ME] IN SERUM OR PLASMA 4.2 3.5 - 5.2 10/08 Specimen Type: PLASMA No comment entered. Ordering Provider: ANKUSH BOWMAN Report Released Date/Time: Sep 24, 2022 01:55 PM Reporting Lab: [facility] [address] Performing Lab: [facility] [address] [place] [facility] PRE-ALBU MIN PREALBUMIN [MASS/VOLU ME] IN SERUM OR PLASMA 28.4 14.0 - 45.0 10/08 Specimen Type: SERUM No comment entered. Ordering Provider: ANKUSH BOWMAN Report Released Date/Time: Sep 24, 2022 01:55 PM Reporting Lab: [facility] [address] Performing Lab: [facility] [address] [place] [facility] COMPREHE NSIVE METABOLI C PANEL+MG CREATININE [MASS/VOLU ME] IN SERUM OR PLASMA 0.7 0.7 - 1.2 10/08 Specimen Type: PLASMA No comment entered. Ordering Provider: ANKUSH BOWMAN Report Released Date/Time: Sep 24, 2022 01:55 PM Reporting Lab: [facility] [address] Performing Lab: [facility] [address] [place] [facility] COMPREHE NSIVE METABOLI C PANEL+MG UREA NITROGEN [MASS/VOLU ME] IN SERUM OR PLASMA 16 8 - 26 10/08 Specimen Type: PLASMA No comment entered. Ordering Provider: ANKUSH BOWMAN Report Released Date/Time: Sep 24, 2022 01:55 PM Reporting Lab: [facility] [address] Performing Lab: [facility] [address] [facility] COMPREHE NSIVE METABOLI C PANEL+MG GLUCOSE [MASS/VOLU ME] IN SERUM OR PLASMA 94 70 - 100 10/08 Specimen Type: PLASMA No comment entered. Ordering Provider: ANKUSH BOWMAN Report Released Date/Time: Sep 24, 2022 01:55 PM Reporting Lab: [facility] [address] Performing Lab: [facility] [address] [place] [facility] COMPREHE NSIVE METABOLI C PANEL+MG SODIUM [MOLES/VOL UME] IN SERUM OR PLASMA 138 136 - 145 10/08 Specimen Type: PLASMA No comment entered. Ordering Provider: ANKUSH BOWMAN Report Released Date/Time: Sep 24, 2022 01:55 PM Reporting Lab: [facility] [address] Performing Lab: [facility] [address] [place] [facility] COMPREHE NSIVE METABOLI C PANEL+MG POTASSIUM [MOLES/VOL UME] IN SERUM OR PLASMA 3.9 3.5 - 5.1 10/08 Specimen Type: PLASMA No comment entered. Ordering Provider: ANKUSH BOWMAN Report Released Date/Time: Sep 24, 2022 01:55 PM Reporting Lab: [facility] [address] Performing Lab: [facility] [address] [place] [facility] COMPREHE NSIVE METABOLI C PANEL+MG CHLORIDE [MOLES/VOL UME] IN SERUM OR PLASMA 101 98 - 107 10/08 Specimen Type: PLASMA No comment entered. Ordering Provider: ANKUSH BOWMAN Report Released Date/Time: Sep 24, 2022 01:55 PM Reporting Lab: [facility] [address] Performing Lab: [facility] [address] [place] [facility] COMPREHE NSIVE METABOLI C PANEL+MG CARBON DIOXIDE, TOTAL [MOLES/VOL UME] IN SERUM OR PLASMA 10/08 Specimen Type: PLASMA No comment entered. Ordering Provider: ANKUSH BOWMAN Report Released Date/Time: Sep 24, 2022 01:55 PM Reporting Lab: [facility] [address] Performing Lab: [facility] [address] [place] [facility] COMPREHE NSIVE METABOLI C PANEL+MG CALCIUM [MASS/VOLU ME] IN SERUM OR PLASMA 9.7 8.4 - 10.2 10/08 Specimen Type: PLASMA No comment entered. Ordering Provider: ANKUSH BOWMAN Report Released Date/Time: Sep 24, 2022 01:55 PM Reporting Lab: [facility] [address] Performing Lab: [facility] [address] [place] [facility] COMPREHE NSIVE METABOLI C PANEL+MG PROTEIN [MASS/VOLU ME] IN SERUM OR PLASMA 7.6 6.0 - 8.3 10/08 Specimen Type: PLASMA No comment entered. Ordering Provider: ANKUSH BOWMAN Report Released Date/Time: Sep 24, 2022 01:55 PM Reporting Lab: [facility] [address] Performing Lab: [facility] [address] [place] [facility] COMPREHE NSIVE METABOLI C PANEL+MG ALBUMIN [MASS/VOLU ME] IN SERUM OR PLASMA 4.2 3.5 - 5.2 10/08 Specimen Type: PLASMA No comment entered. Ordering Provider: ANKUSH BOWMAN Report Released Date/Time: Sep 24, 2022 01:55 PM Reporting Lab: [facility] [address] Performing Lab: [facility] [address] [place] [facility] COMPREHE NSIVE METABOLI C PANEL+MG BILIRUBIN. TOTAL [MASS/VOLU ME] IN SERUM OR PLASMA 0.6 0.2 - 1.2 10/08 Specimen Type: PLASMA No comment entered. Ordering Provider: ANKUSH BOWMAN Report Released Date/Time: Sep 24, 2022 01:55 PM Reporting Lab: [facility] [address] Performing Lab: [facility] [address] [place] [facility] COMPREHE NSIVE METABOLI C PANEL+MG MAGNESIUM [MASS/VOLU ME] IN SERUM OR PLASMA 2.1 1.6 - 2.6 10/08 Specimen Type: PLASMA No comment entered. Ordering Provider: ANKUSH BOWMAN Report Released Date/Time: Sep 24, 2022 01:55 PM Reporting Lab: [facility] [address] Performing Lab: [facility] [address] [place] [facility] COMPREHE NSIVE METABOLI C PANEL+MG ANION GAP IN SERUM OR PLASMA 9 5 - 15 10/08 Specimen Type: PLASMA No comment entered. Ordering Provider: ANKUSH BOWMAN Report Released Date/Time: Sep 24, 2022 01:55 PM Reporting Lab: [facility] [address] Performing Lab: [facility] [address] [place] [facility] COMPREHE NSIVE METABOLI C PANEL+MG ALKALINE PHOSPHATAS E [ENZYMATIC ACTIVITY/V OLUME] IN SERUM OR PLASMA 96 40 - 150 10/08 Specimen Type: PLASMA No comment entered. Ordering Provider: ANKUSH BOWMAN Report Released Date/Time: Sep 24, 2022 01:55 PM Reporting Lab: [facility] [address] Performing Lab: [facility] [address] [place] [facility] COMPREHE NSIVE METABOLI C PANEL+MG ALANINE AMINOTRANS FERASE [ENZYMATIC ACTIVITY/V OLUME] IN SERUM OR PLASMA 29 <55 - 55 10/08 Specimen Type: PLASMA No comment entered. Ordering Provider: ANKUSH BOWMAN Report Released Date/Time: Sep 24, 2022 01:55 PM Reporting Lab: [facility] [address] Performing Lab: [facility] [address] [place] [facility] COMPREHE NSIVE METABOLI C PANEL+MG ASPARTATE AMINOTRANS FERASE [ENZYMATIC ACTIVITY/V OLUME] IN SERUM OR PLASMA 22 <34 - 34 10/08 Specimen Type: PLASMA No comment entered. Ordering Provider: ANKUSH BOWMAN Report Released Date/Time: Sep 24, 2022 01:55 PM Reporting Lab: [facility] [address] Performing Lab: [facility] [address] [facility] COMPREHE NSIVE METABOLI C PANEL+MG GLOMERULAR FILTRATION RATE/1.73 SQ M.PREDICTE D [VOLUME RATE/AREA] IN SERUM, PLASMA OR BLOOD BY CREATININE -BASED FORMULA (CKD-EPI) >90 60 10/08 Specimen Type: PLASMA No comment entered. Ordering Provider: ANKUSH BOWMAN Report Released Date/Time: Sep 24, 2022 01:55 PM Reporting Lab: [facility] [address] Performing Lab: [facility] [address] [facility] CBC & DIFF LEUKOCYTES [#/VOLUME] IN BLOOD BY AUTOMATED COUNT 7.32 4.0 - 11.0 10/08 Specimen Type: BLOOD Comment: Automated Differentia l Performed Ordering Provider: ANKUSH BOWMAN Report Released Date/Time: Sep 24, 2022 01:55 PM Reporting Lab: [facility] [address] Performing Lab: [facility] [address] [facility] CBC & DIFF ERYTHROCYT ES [#/VOLUME] IN BLOOD BY AUTOMATED COUNT 4.80 4.6 - 6.2 10/08 Specimen Type: BLOOD Comment: Automated Differentia l Performed Ordering Provider: ANKUSH BOWMAN Report Released Date/Time: Sep 24, 2022 01:55 PM Reporting Lab: [facility] [address] Performing Lab: [facility] [address] [place] [facility] CBC & DIFF HEMOGLOBIN [MASS/VOLU ME] IN BLOOD 14.7 13.5 - 17.9 10/08 Specimen Type: BLOOD Comment: Automated Differentia l Performed Ordering Provider: ANKUSH BOWMAN Report Released Date/Time: Sep 24, 2022 01:55 PM Reporting Lab: [facility] [address] Performing Lab: [facility] [address] [place] [facility] CBC & DIFF HEMATOCRIT [VOLUME FRACTION] OF BLOOD BY AUTOMATED COUNT 44.2 41 - 54 10/08 Specimen Type: BLOOD Comment: Automated Differentia l Performed Ordering Provider: ANKUSH BOWMAN Report Released Date/Time: Sep 24, 2022 01:55 PM Reporting Lab: [facility] [address] Performing Lab: [facility] [address] [place] [facility] CBC & DIFF MCV [ENTITIC VOLUME] BY AUTOMATED COUNT 92.1 80 - 100 10/08 Specimen Type: BLOOD Comment: Automated Differentia l Performed Ordering Provider: ANKUSH BOWMAN Report Released Date/Time: Sep 24, 2022 01:55 PM Reporting Lab: [facility] [address] Performing Lab: [facility] [address] [place] [facility] CBC & DIFF MCH [ENTITIC MASS] BY AUTOMATED COUNT 30.6 27 - 33 10/08 Specimen Type: BLOOD Comment: Automated Differentia l Performed Ordering Provider: ANKUSH BOWMAN Report Released Date/Time: Sep 24, 2022 01:55 PM Reporting Lab: [facility] [address] Performing Lab: [facility] [address] [place] [facility] CBC & DIFF MCHC [MASS/VOLU ME] BY AUTOMATED COUNT 33.3 32.0 - 37.5 10/08 Specimen Type: BLOOD Comment: Automated Differentia l Performed Ordering Provider: ANKUSH BOWMAN Report Released Date/Time: Sep 24, 2022 01:55 PM Reporting Lab: [facility] [address] Performing Lab: [facility] [address] [place] [facility] CBC & DIFF PLATELETS [#/VOLUME] IN BLOOD BY AUTOMATED COUNT 144 150 - 400 10/08 L Specimen Type: BLOOD Comment: Automated Differentia l Performed Ordering Provider: ANKUSH BOWMAN Report Released Date/Time: Sep 24, 2022 01:55 PM Reporting Lab: [facility] [address] Performing Lab: [facility] [address] [place] [facility] CBC & DIFF PLATELET MEAN VOLUME [ENTITIC VOLUME] IN BLOOD BY AUTOMATED COUNT 10.8 7.4 - 10.4 10/08 H Specimen Type: BLOOD Comment: Automated Differentia l Performed Ordering Provider: ANKUSH BOWMAN Report Released Date/Time: Sep 24, 2022 01:55 PM Reporting Lab: [facility] [address] Performing Lab: [facility] [address] [place] [facility] CBC & DIFF NEUTROPHIL S/100 LEUKOCYTES IN BLOOD BY MANUAL COUNT 55.5 10/08 Specimen Type: BLOOD Comment: Automated Differentia l Performed Ordering Provider: ANKUSH BOWMAN Report Released Date/Time: Sep 24, 2022 01:55 PM Reporting Lab: [facility] [address] Performing Lab: [facility] [address] [place] [facility] CBC & DIFF LYMPHOCYTE S/100 LEUKOCYTES IN BLOOD BY MANUAL COUNT 31.4 10/08 Specimen Type: BLOOD Comment: Automated Differentia l Performed Ordering Provider: ANKUSH BOWMAN Report Released Date/Time: Sep 24, 2022 01:55 PM Reporting Lab: [facility] [address] Performing Lab: [facility] [address] [place] [facility] CBC & DIFF MONOCYTES/ 100 LEUKOCYTES IN BLOOD BY AUTOMATED COUNT 10.2 10/08 Specimen Type: BLOOD Comment: Automated Differentia l Performed Ordering Provider: ANKUSH BOWMAN Report Released Date/Time: Sep 24, 2022 01:55 PM Reporting Lab: [facility] [address] Performing Lab: [facility] [address] [place] [facility] CBC & DIFF EOSINOPHIL S/100 LEUKOCYTES IN BLOOD BY AUTOMATED COUNT 2.2 10/08 Specimen Type: BLOOD Comment: Automated Differentia l Performed Ordering Provider: ANKUSH BOWMAN Report Released Date/Time: Sep 24, 2022 01:55 PM Reporting Lab: [facility] [address] Performing Lab: [facility] [address] [place] [facility] CBC & DIFF BASOPHILS/ 100 LEUKOCYTES IN BLOOD BY MANUAL COUNT 0.4 10/08 Specimen Type: BLOOD Comment: Automated Differentia l Performed Ordering Provider: ANKUSH BOWMAN Report Released Date/Time: Sep 24, 2022 01:55 PM Reporting Lab: [facility] [address] Performing Lab: [facility] [address] [place] [facility] CBC & DIFF ERYTHROCYT E DISTRIBUTI ON WIDTH [RATIO] BY AUTOMATED COUNT 15.9 11.5 - 14.5 10/08 H Specimen Type: BLOOD Comment: Automated Differentia l Performed Ordering Provider: ANKUSH BOWMAN Report Released Date/Time: Sep 24, 2022 01:55 PM Reporting Lab: [facility] [address] Performing Lab: [facility] [address] [place] [facility] CBC & DIFF LYMPHOCYTE S [#/VOLUME] IN BLOOD BY AUTOMATED COUNT 2.30 1.0 - 4.0 10/08 Specimen Type: BLOOD Comment: Automated Differentia l Performed Ordering Provider: ANKUSH BOWMAN Report Released Date/Time: Sep 24, 2022 01:55 PM Reporting Lab: [facility] [address] Performing Lab: [facility] [address] [place] [facility] CBC & DIFF MONOCYTES [#/VOLUME] IN BLOOD BY AUTOMATED COUNT 0.75 0.1 - 1.0 10/08 Specimen Type: BLOOD Comment: Automated Differentia l Performed Ordering Provider: ANKUSH BOWMAN Report Released Date/Time: Sep 24, 2022 01:55 PM Reporting Lab: [facility] [address] Performing Lab: [facility] [address] [place] [facility] CBC & DIFF NEUTROPHIL S [#/VOLUME] IN BLOOD BY AUTOMATED COUNT 4.06 2.0 - 7.7 10/08 Specimen Type: BLOOD Comment: Automated Differentia l Performed Ordering Provider: ANKUSH BOWMAN Report Released Date/Time: Sep 24, 2022 01:55 PM Reporting Lab: [facility] [address] Performing Lab: [facility] [address] [place] [facility] CBC & DIFF EOSINOPHIL S [#/VOLUME] IN BLOOD BY AUTOMATED COUNT 0.16 0 - 0.5 10/08 Specimen Type: BLOOD Comment: Automated Differentia l Performed Ordering Provider: ANKUSH BOWMAN Report Released Date/Time: Sep 24, 2022 01:55 PM Reporting Lab: [facility] [address] Performing Lab: [facility] [address] [place] [facility] CBC & DIFF BASOPHILS [#/VOLUME] IN BLOOD BY AUTOMATED COUNT 0.03 0 - 0.2 10/08 Specimen Type: BLOOD Comment: Automated Differentia l Performed Ordering Provider: ANKUSH BOWMAN Report Released Date/Time: Sep 24, 2022 01:55 PM Reporting Lab: [facility] [address] Performing Lab: [facility] [address] [place] [facility] CBC & DIFF IG(META,MY AMLACHI,PRO) 0.3 10/08 Specimen Type: BLOOD Comment: Automated Differentia l Performed Ordering Provider: ANKUSH BOWMAN Report Released Date/Time: Sep 24, 2022 01:55 PM Reporting Lab: [facility] [address] Performing Lab: [facility] [address] [place] [facility] CBC & DIFF IMMATURE GRANULOCYT ES [PRESENCE] IN BLOOD BY AUTOMATED COUNT 0.02 0 - 0.1 10/08 Specimen Type: BLOOD Comment: Automated Differentia l Performed Ordering Provider: ANKUSH BOWMAN Report Released Date/Time: Sep 24, 2022 01:55 PM Reporting Lab: [facility] [address] Performing Lab: [facility] [address] [place] [facility] CYSTATIN C WITH EGFR CYSTATIN C [MASS/VOLU ME] IN SERUM OR PLASMA 1.38 0.51 - 1.05 10/08 H Specimen Type: PLASMA No comment entered. Ordering Provider: ANKUSH BOWMAN Report Released Date/Time: Sep 24, 2022 01:55 PM Reporting Lab: [facility] [address] Performing Lab: [facility] [address] [place] [facility] CYSTATIN C WITH EGFR CYSTATIN C AND GLOMERULAR FILTRATION RATE BY CYSTATIN-B ASED FORMULA PANEL - SERUM OR PLASMA 48 60 10/08 L Specimen Type: PLASMA No comment entered. Ordering Provider: ANKUSH BOWMAN Report Released Date/Time: Sep 24, 2022 01:55 PM Reporting Lab: [facility] [address] Performing Lab: [facility] [address] [place] [facility] VIT D 25-OH,TO ZAMZAM 25-HYDROXY VITAMIN D3 [MASS/VOLU ME] IN SERUM OR PLASMA 54 12 - 50 10/08 H Specimen Type: SERUM No comment entered. Ordering Provider: ANKUSH BOWMAN Report Released Date/Time: Sep 24, 2022 01:55 PM Reporting Lab: [facility] [address] Performing Lab: [facility] [address] [place] [facility] COMPREHE NSIVE METABOLI C PANEL+MG CREATININE [MASS/VOLU ME] IN SERUM OR PLASMA 0.7 0.7 - 1.2 05/28 Specimen Type: PLASMA No comment entered. Ordering Provider: GERMANIA HANSON Report Released Date/Time: May 28, 2022 03:06 PM Reporting Lab: [facility] [address] Performing Lab: [facility] [address] [facility] COMPREHE NSIVE METABOLI C PANEL+MG UREA NITROGEN [MASS/VOLU ME] IN SERUM OR PLASMA 13 8 - 26 07/18 /2022 Specimen Type: PLASMA No comment entered. Ordering Provider: GERMANIA HANSON Report Released Date/Time: May 28, 2022 03:06 PM Reporting Lab: [facility] [address] Performing Lab: [facility] [address] [facility] COMPREHE NSIVE METABOLI C PANEL+MG GLUCOSE [MASS/VOLU ME] IN SERUM OR PLASMA 98 74 - 100 05/28 Specimen Type: PLASMA No comment entered. Ordering Provider: GERMANIA HANSON Report Released Date/Time: May 28, 2022 03:06 PM Reporting Lab: [facility] [address] Performing Lab: [facility] [address] [facility] COMPREHE NSIVE METABOLI C PANEL+MG SODIUM [MOLES/VOL UME] IN SERUM OR PLASMA 138 136 - 145 05/28 Specimen Type: PLASMA No comment entered. Ordering Provider: GERMANIA HANSON Report Released Date/Time: May 28, 2022 03:06 PM Reporting Lab: [facility] [address] Performing Lab: [facility] [address] [facility] COMPREHE NSIVE METABOLI C PANEL+MG POTASSIUM [MOLES/VOL UME] IN SERUM OR PLASMA 4.4 3.5 - 5.1 05/28 Specimen Type: PLASMA No comment entered. Ordering Provider: GERMANIA HANSON Report Released Date/Time: May 28, 2022 03:06 PM Reporting Lab: [facility] [address] Performing Lab: [facility] [address] [facility] COMPREHE NSIVE METABOLI C PANEL+MG CHLORIDE [MOLES/VOL UME] IN SERUM OR PLASMA 102 98 - 107 05/28 Specimen Type: PLASMA No comment entered. Ordering Provider: GERMANIA HANSON Report Released Date/Time: May 28, 2022 03:06 PM Reporting Lab: [facility] [address] Performing Lab: [facility] [address] [facility] COMPREHE NSIVE METABOLI C PANEL+MG CARBON DIOXIDE, TOTAL [MOLES/VOL UME] IN SERUM OR PLASMA 28 - 05/28 Specimen Type: PLASMA No comment entered. Ordering Provider: GERMANIA HANSON Report Released Date/Time: May 28, 2022 03:06 PM Reporting Lab: [facility] [address] Performing Lab: [facility] [address] [facility] COMPREHE NSIVE METABOLI C PANEL+MG CALCIUM [MASS/VOLU ME] IN SERUM OR PLASMA 9.4 8.4 - 10.2 05/28 Specimen Type: PLASMA No comment entered. Ordering Provider: GERMANIA HANSON Report Released Date/Time: May 28, 2022 03:06 PM Reporting Lab: [facility] [address] Performing Lab: [facility] [address] [facility] COMPREHE NSIVE METABOLI C PANEL+MG PROTEIN [MASS/VOLU ME] IN SERUM OR PLASMA 7.6 6.0 - 8.3 05/28 Specimen Type: PLASMA No comment entered. Ordering Provider: GERMANIA HANSON Report Released Date/Time: May 28, 2022 03:06 PM Reporting Lab: [facility] [address] Performing Lab: [facility] [address] [facility] COMPREHE NSIVE METABOLI C PANEL+MG ALBUMIN [MASS/VOLU ME] IN SERUM OR PLASMA 4.0 3.5 - 5.2 05/28 Specimen Type: PLASMA No comment entered. Ordering Provider: GERMANIA HANSON Report Released Date/Time: May 28, 2022 03:06 PM Reporting Lab: [facility] [address] Performing Lab: [facility] [address] [facility] COMPREHE NSIVE METABOLI C PANEL+MG BILIRUBIN. TOTAL [MASS/VOLU ME] IN SERUM OR PLASMA 0.5 0.2 - 1.2 05/28 Specimen Type: PLASMA No comment entered. Ordering Provider: GERMANIA HANSON Report Released Date/Time: May 28, 2022 03:06 PM Reporting Lab: [facility] [address] Performing Lab: [facility] [address] [facility] COMPREHE NSIVE METABOLI C PANEL+MG MAGNESIUM [MASS/VOLU ME] IN SERUM OR PLASMA 2.1 1.6 - 2.6 05/28 Specimen Type: PLASMA No comment entered. Ordering Provider: GERMANIA HANSON Report Released Date/Time: May 28, 2022 03:06 PM Reporting Lab: [facility] [address] Performing Lab: [facility] [address] [facility] COMPREHE NSIVE METABOLI C PANEL+MG ANION GAP IN SERUM OR PLASMA 8 5 - 15 05/28 Specimen Type: PLASMA No comment entered. Ordering Provider: GERMANIA HANSON Report Released Date/Time: May 28, 2022 03:06 PM Reporting Lab: [facility] [address] Performing Lab: [facility] [address] [facility] COMPREHE NSIVE METABOLI C PANEL+MG ALKALINE PHOSPHATAS E [ENZYMATIC ACTIVITY/V OLUME] IN SERUM OR PLASMA 108 40 - 150 05/28 Specimen Type: PLASMA No comment entered. Ordering Provider: GERMANIA HANSON Report Released Date/Time: May 28, 2022 03:06 PM Reporting Lab: [facility] [address] Performing Lab: [facility] [address] [facility] COMPREHE NSIVE METABOLI C PANEL+MG ALANINE AMINOTRANS FERASE [ENZYMATIC ACTIVITY/V OLUME] IN SERUM OR PLASMA 27 <55 - 55 05/28 Specimen Type: PLASMA No comment entered. Ordering Provider: GERMANIA HANSON Report Released Date/Time: May 28, 2022 03:06 PM Reporting Lab: [facility] [address] Performing Lab: [facility] [address] [facility] COMPREHE NSIVE METABOLI C PANEL+MG ASPARTATE AMINOTRANS FERASE [ENZYMATIC ACTIVITY/V OLUME] IN SERUM OR PLASMA 21 <34 - 34 05/28 Specimen Type: PLASMA No comment entered. Ordering Provider: GERMANIA HANSON Report Released Date/Time: May 28, 2022 03:06 PM Reporting Lab: [facility] [address] Performing Lab: [facility] [address] [facility] COMPREHE NSIVE METABOLI C PANEL+MG GLOMERULAR FILTRATION RATE/1.73 SQ M.PREDICTE D [VOLUME RATE/AREA] IN SERUM, PLASMA OR BLOOD BY CREATININE -BASED FORMULA (CKD-EPI) >90 60 05/28 Specimen Type: PLASMA No comment entered. Ordering Provider: GERMANIA HANSON Report Released Date/Time: May 28, 2022 03:06 PM Reporting Lab: [facility] [address] Performing Lab: [facility] [address] [facility] Vital Signs Combined list of inpatient and outpatient Vital Signs from Department of Defense and Veterans Affairs, ranging from 12 months to all on record, depending upon the facility. Vital Sign Value Date Comments Source SYSTOLIC BLOOD PRESSURE 103 02/13/2023 10:58:23 [facility] DIASTOLIC BLOOD PRESSURE 66 02/13/2023 10:58:23 [facility] PULSE OXIMETRY 98% 02/13/2023 10[facility]58:23 [facility] 4 02/13/2023 10:58:23 [facility] TEMPERATURE 96.2 02/13/2023 10:58:23 [facility] PULSE 86 02/13/2023 10:58:23 [facility] RESPIRATION 16 02/13/2023 10:58:23 [facility] WEIGHT 225 02/05/2023 15:39:35 [facility] BMI 33kg/m2 02/05/2023 15:39:35 [facility] Encounters Combined list of: 1) Encounters from Department of Veterans Affairs facilities going back up to thelast 18 months. 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 Location Location Details Encounter Type Encounter Number Reason For Visit Attending Provider ADM Date DC Date Status Disposition Source [facility] OFFICE O/P [place] 60-74 MIN [id number] Diagnos is: ICD-10- CM C72.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
GRANDCAROLYNN,CO NNIE M 05/28 [facility] [place] [facility] Outpatient Encounter [id number] 05/30 [place] [facility] [place] [facility] Outpatient Encounter [id number] 06/01 [place] [facility] [place] [facility] Outpatient Encounter [id number] 06/04 [place] [facility] [place] [facility] Outpatient Encounter [id number] 06/05 [place] [facility] [place] [facility] SELF CARE MNGMENT TRAINING [id number] Diagnos is: ICD-10- CM Z73.6 Limitat ion of activit ies due to disabil ity<br/ > NADEEN MITCHELL 06/07 [place] [facility] [place] [facility] Outpatient Encounter [id number] 06/07 [place] [facility] [place] [facility] OT EVAL HIGH COMPLEX 60 MIN [id number] Diagnos is: ICD-10- CM R54 Age-rel ated physica l debilit y
SAVANNA MCKINLEY 06/07 [place] [facility] [place] [facility] Outpatient Encounter [id number] 06/11 [place] [facility] [place] [facility] Outpatient Encounter [id number] 06/11 [place] [facility] [place] [facility] Outpatient Encounter [id number] 06/12 [place] [facility] [place] [facility] Outpatient Encounter [id number] 06/15 [facility] [place] [facility] Outpatient Encounter [id number] 06/21 [facility] [place] [facility] Outpatient Encounter [id number] 06/25 [facility] OFFICE O/P NEW LOW 30-44 MIN [id number] Diagnos is: ICD-10- CM G82.20 Paraple mary kay, unspeci fied
RAVERTY,ME LOGAN K 06/27 [facility] Outpatient Encounter [id number] 06/27 [facility] SELF CARE MNGMENT TRAINING [id number] Diagnos is: ICD-10- CM Z73.6 Limitat ion of activit ies due to disabil ity<br/ > AVE HALEY 07/11 [facility] [place] Outpatient Encounter [id number] 07/18 [facility] [place] SELF CARE MNGMENT TRAINING [id number] Diagnos is: ICD-10- CM Z73.6 Limitat ion of activit ies due to disabil ity<br/ > GODING,RACIEL T 07/23 [facility] [place] SELF CARE MNGMENT TRAINING [id number] Diagnos is: ICD-10- CM Z73.6 Limitat ion of activit ies due to disabil ity<br/ > AVE HALEY 07/25 [facility] [place] OT EVAL MOD COMPLEX 45 MIN [id number] Diagnos is: ICD-10- CM Z73.6 Limitat ion of activit ies due to disabil ity<br/ > AVE HALEY 07/25 [facility] [place] Outpatient Encounter [id number] Diagnos is: ICD-10- CM R26.9 Unspeci fied abnorma lities of gait and mobilit y
JULIANKARI JASSON M 07/31 [facility] [place] OFFICE O/P EST MOD 30-39 MIN [id number] Diagnos is: ICD-10- CM G82.20 Paraple mary kay, unspeci fied
ME GRACIE LOGAN K 08/01 [facility] Outpatient Encounter [id number] 08/17 [facility] Outpatient Encounter [id number] 09/20 [facility] OFFICE O/P EST MINIMAL PROB [id number] Diagnos is: ICD-10- CM G82.20 Paraple mary kay, unspeci fied
Jey PATTON V 10/08 [facility] ASSISTIVE TECHNOLOGY ASSESS [id number] Diagnos is: ICD-10- CM Z73.6 Limitat ion of activit ies due to disabil ity<br/ > BOUSLOG,RY AN P 10/08 [facility] Outpatient Encounter [id number] 10/09 [facility] Outpatient Encounter [id number] 10/11 [facility] HC PRO PHONE CALL 5-10 MIN [id number] Diagnos is: ICD-10- CM Z73.6 Limitat ion of activit ies due to disabil ity<br/ > AVE HALEY M 12/13 [facility] Outpatient Encounter [id number] 01/08 [facility] HC PRO PHONE CALL 21-30 MIN [phone] Diagnos is: ICD-10- CM G82.20 Paraple mary kay, unspeci fied
Hever CASTRO 01/08 [facility] Outpatient Encounter [id number] 01/09 [facility] DIABETIC MANAGEMENT PROGRAM, [phone] Diagnos is: ICD-10- CM G82.20 Paraple mary kay, unspeci fied
TIGIST BASSETT 01/30 [facility] Outpatient Encounter [id number] 02/05 [facility] MTMS BY PHARM ADDL 15 MIN [id number] [id number] Diagnos is: ICD-10- CM G82.20 Paraple mary kay, unspeci fied
MANPREET BARRETT 02/05 [facility] OT EVAL LOW COMPLEX 30 MIN [phone] Diagnos is: ICD-10- CM Z73.6 Limitat ion of activit ies due to disabil ity<br/ > Bryn PARDO 02/05 [facility] OFF/OP EST MAY X REQ PHY/QHP [id number] [phone] Diagnos is: ICD-10- CM G82.20 Paraple mary kay, unspeci fied
JOSUÉ ZAMORA 02/05 [facility] PSYCH DIAGNOSTIC EVALUATION [id number] [id number] Diagnos is: ICD-10- CM F32.A Depress ion, unspeci fied
BINU GAMEZ 02/05 [facility] OFFICE O/P EST MOD 30-39 MIN [phone] Diagnos is: ICD-10- CM G82.20 Paraple mary kay, unspeci fied
ME LOGAN BOWMAN 02/05 [facility] PSYCH DIAGNOSTIC EVALUATION [phone] Diagnos is: ICD-10- CM G82.20 Paraple mary kay, unspeci fied
CHIRCOP,AN DESIRE J 02/05 [facility] MEDICAL NUTRITION INDIV IN [phone] Diagnos is: ICD-10- CM Z71.3 Dietary general counsel ing and surveil payal<b r/> Katia ARCHER 02/05 [facility] ENTEROSTOM AL THERAPY BY A RE [phone] Diagnos is: ICD-10- CM Z43.3 Encount er for attenti on to colosto my
VIOLA YOON 02/08 [facility] OFFICE O/P EST HI 40-54 MIN [phone] Diagnos is: ICD-10- CM G82.20 Paraple mary kay, unspeci fied
ME LOGAN BOWMAN 02/13 [facility] WHEELCHAIR MNGMENT TRAINING [phone] Diagnos is: ICD-10- CM Z73.6 Limitat ion of activit ies due to disabil ity<br/ > BOUSLOG,RY AN P 02/13 [facility] Outpatient Encounter [id number] 02/19 [facility] HC PRO PHONE CALL 11-20 MIN [phone] Diagnos is: ICD-10- CM Z73.6 Limitat ion of activit ies due to disabil ity<br/ > BOUSLOG,RY AN P 04/23 [facility] [place] [facility] Outpatient Encounter [id number] 04[facility] [place] Outpatient Encounter [id number] 05/24 [facility] [place] [facility] OFF/OP EST MARCH X REQ PHY/QHP [id number] [phone] Diagnos is: ICD-10- CM G82.20 Paraple mary kay, unspeci fied
VIOLA YOON NDJagdish 05/28 [facility] WHEELCHAIR MNGMENT TRAINING [id number] Diagnos is: ICD-10- CM Z73.6 Limitat ion of activit ies due to disabil ity<br/ > BOUSLOG,RY AN P 06/10 [facility] [place] [facility] Outpatient Encounter [id number] 10/28 [facility] Social History Combined list of available smoking, tobacco, and other social history from 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 Social History Type Response Date Comment Sour e Tobacco smoking status [facility] NEVER USED 05/28/20 22 SADAF TREVINO [facility] This section is an empty social history section. DoD Advance Directives List of completed, amended, or rescinded Advance Directives on record at Department of 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 An actual copy of the Directive is not included. Date Advance Directive Provider Source 02/05/2023 ADVANCE DIRECTIVE DISCUSSION GUSTAVO ABAD [facility]
--- OUTSIDE RECORDS SUMMARY | 2023-11-18 12:42 | XMS_ITS | Encounter Summary ---
Author Name [facility] Organization [facility] Address [address] [place] [address] Support Name Relationship Address Phone WADE DEGROOT Next of Kin [address] [place] [address] WADE DEGROOT Emergency Contact [address] [place] [address] CHANTEL DEGROOT [facility] [place] Emergency Contact [facility] [place] CON SENT FOR TELE [place] Insurance Providers: All historical and current Section [...] PART B Jul 12, 2004 PART B [id number] [phone] Kasie DEGROOT RED PATIENT MEDICARE (WNR) MEDICARE (M) PART A Oct 11, 2002 PART A [id number] [phone] Kasie DEGROOT RED PATIENT Selected Encounter This section includes the information on record at [place] for the Encounter. Date/Time Encounter Type Encounter Description Reason Provider Source Jan 08, 2023 12:19 PM HC PRO PHONE CALL 21-30 MIN TELEPHONE SCI ICD-10-CM G82.20 Paraplegia, unspecified DAVID HILL Encounter Template Text not used by [place] Assessments - Encounter Diagnoses This section includes the primary and secondary diagnoses documented for the Encounter. Date/Time Primary/Secondary Diagnosis Diagnosis Name Provider Source Jan 08, 2023 12:19 PM PRIMARY Paraplegia, unspecified DAVID HILL [facility] Plan of Treatment: Future Appointments (+ 6 months) and Future Tests (+/- 45 days) The Plan of Treatment section includes future care activities for the patient from [facility] This section includes future appointments and future orders which are active, pending or scheduled. Future Appointments This section includes appointments that were scheduled to occur 6 months from the date of the Encounter, up to a maximum of 20 appointments. The data comes from all [facility]. Appointment Date/Time Appointment Type Appointme nt Facility Name Jan 30, 2023 10:30 AM AMBULATORY - REHAB MEDICIN E [facility] Feb 05, 2023 08:30 AM AMBULATORY - REHAB MEDICIN [facility] Feb 05, 2023 09:00 AM AMBULATORY - REHAB MEDICIN [facility] Feb 05, 2023 10:30 AM AMBULATORY - REHAB MEDICIN [facility] Feb 05, 2023 11:00 AM AMBULATORY - REHAB MEDICIN [facility] Feb 05, 2023 01:00 PM AMBULATORY - REHAB MEDICIN E [facility] Feb 05, 2023 02:00 PM AMBULATORY - REHAB MEDICIN E [facility] Feb 05, 2023 02:30 PM AMBULATORY - REHAB MEDICIN E [facility] Feb 08, 2023 02:00 PM AMBULATORY - REHAB MEDICIN [facility] Feb 13, 2023 11:00 AM AMBULATORY - REHAB MEDICIN E [facility] Feb 13, 2023 01:00 PM AMBULATORY - REHAB MEDICIN E [facility] Jun 10, 2023 01:00 PM AMBULATORY - REHAB MEDICIN E [facility] Jun 13, 2023 07:00 AM [facility] Advance Directives: All historical and current Section Date Range: From patient's date of to the date document was created. This section includes ALL of a patient's completed or amended [place] Advance and Rescinded Directives. The entries below indicate that a directive exists for the patient, but an actual copy is not included with this document. The data comes from all [facility]. Date Advance Directives Provider Source Feb 05, 2023 ADVANCE DIRECTIVE DISCUSSION GUSTAVO ABAD [facility] Encounter Notes: All associated encounter notes This section contains the clinical notes associated to the Encounter. Date/Time Encounter Note(s) Provider Source Jan 08, 2023 12:19 PM MINING MACHINERY ASSEMBLER NOTE: LOCAL TITLE: MINING MACHINERY ASSEMBLER NOTE STANDARD TITLE: MINING MACHINERY ASSEMBLER NOTE DATE OF NOTE: JAN 08, 2023@12:19 ENTRY DATE: JAN 08, 2023@12:20:01 AUTHOR: MARYELLEN HILL COSIGNER: URGENCY: STATUS: COMPLETED SUBJECT: SCID VIRTUAL ANNUAL EVALUATION PRESCREENING MINING MACHINERY ASSEMBLER ASSESSME AE Intake Template SCID VIRTUAL ANNUAL EVALUATION PRESCREENING MINING MACHINERY ASSEMBLERACTIVITY LEADER NOTE Reason for visit: Patient is to participate in a virtual SCI/D specific annual evaluation. Information below gathered during telephone interview with and Wade (spouse/caregiver) and chart review. Pump Attendant offered VVC or Hybrid annual evaluation. Wade stated VVC appointments are preferrable and confirmed current email to be [email or web address] Wade was advised that link to appointments will be sent to confirmed email address to be used for all VVC appointments. Pump Attendant provided direct number [phone] for questions or to change/cancel AE appointments. [place] agreeable to [facility] appointment. SCI/D RELATED DIAGNOSIS/HISTORY/ETIOLOGY : The following was retrieved from [facility]S-SCI/D consult 06/27/2022 note: HPI: Mr. DEGROOT is a 77 yo M w/ incomplete paraplegia s/p ependymoma resection who is seen for new outpatient consultation via telemedicine. Information is obtained from the patient and from chart review. Annual provider: Dr. Willoughby PRIMARY CARE PROVIDER: Britney Philip NP VISN 23 SCI/D [facility] CATCHMENT LOCATION: [place], [place] AE Scheduled: Sunday, February 05, 2023 PID: none listed LIVING SITUATION LOCATION: Home/private residence CURRENT HEALTH STATUS/CHANGES: 1. Leaking and increased sediment. SP catheter change every 3 weeks, next appointment 01/08/2023. Urology appointment scheduled in February 2023. SKIN: Intact per report. History of flap in August 2018. Daily skin checks: 1. How often do you (or your caregiver) check your skin, especially on your backside? 3 days a week with home health aide. 2. How do you check your skin? Home health aid. Do you use a mirror or other device? No 3. What prevents you from checking your skin more often? Hand-held mirror. -Instructed on importance of checking areas of reduced or absent sensation for redness, break down or wounds. Encouraged to check at least daily. Instructed skin checks before getting up for the day and at bed time is preferred. Check shoes before putting on for rocks or other debris. -Requesting long-handled mirror to be mailed to perform skin checks. -Instructed to call the SCID clinic when there are areas of redness not resolved after 30 minutes of removal of pressure or any open areas. PHYSICAL THERAPY OR OCCUPATIONAL THERAPY NEEDS? Equipment needs: [employer] - PWC. Ceiling lift. Shower wheelchair. Wheelchair/cushion repair needs (if applicable): Appointment with wheelchair clinic February 13, 2023 to evaluate backrest. Change in functional status: No knife changer last year. Recent History of falling (please include date/circumstance): No falls over last year. AUTONOMIC DYSREFLEXIA: (Only T6 and above) Symptoms/frequency: Elevated blood pressure, spasms, headache, cold sweat. Last episode in the summer or fall 2021. RESPIRATORY CARE NEEDS/HISTORY: Denies SWALLOWING CONCERNS/PROBLEMS: Denies SPEECH CONCERNS/PROBLEMS: Denies COGNITION CONCERNS/PROBLEMS: Denies [place] agreeable to see speech language pathologist: n/a agreeable to see technical support coordinator: Yes. would like to lose 25 pounds. SANITATION LEAD NEEDS: (Yes, to any of these requires a rtc w/SW) 1. Is this the first annual evaluation? no 2. [place] is in the [facility] catchment and has a concern about: a) Home care - no b) Advance directive - no c) Financial concerns - no d) Transportation - no e) VA/Community resources - yes. -[employer] ([employer]) provided air mattress. In the fall of 2021, replacing the Air mattress through VA was initiated but they haven't received any follow up from [place]. (SW doesn't see established pts from spoke sites only new pts from spoke sites.) PSYCHOLOGY Would you rate your current overall life satisfaction as poor, fair, or good? -Good Are you currently doing therapy, attending a support group, seeing a psychologist or taking over the counter or prescription medication for mood or anxiety? -Denies attending therapy -Duloxitine 60 mg twice daily -Lorazepam 0.5 mg twice daily and 2 tabs at bedtime Have you been struggling with depressed mood, anxiety, or irritability within the past three months? -Denies -Denies SI. Aware of new Veterans Crisis Line 303, press 1 [employer] (i.e., prostate)/Sexualty and Intimacy Concerns: Denies. BLADDER MANAGEMENT: Supra pubic catheter. Leaking and increased sediment. SP catheter change every 3 weeks, next appointment 01/08/2023. Urology appointment scheduled in February 2023. -Wade stated their supply of Bard large urinary drainage bag (reference number [id number]) is running low. Pump Attendant requested refill via CPRS. Accidents/incontinence: no Last renal ultrasound: (10/08/2022). The following was retrieved from [id number]-10/09 US RETROPERITONEAL RENAL note: Impression: 1. No hydronephrosis or shadowing renal collecting system stone 2. Suprapubic catheter, decompressed urinary bladder. I, Marlon Verde, have reviewed the images and report. Primary Interpreting Staff: MARLON VERDE MD, RADIOLOGIST (Case Manager) Primary Interpreting Resident: HANNAH THAYER MD, WET END HELPER /EKN Last abdominal ultrasound/abdominal CT scan: Unable to locate results in record Last cystoscopy: Unable to locate results in record Urodynamics: Unable to locate results in record BOWEL MANAGEMENT: Colostomy. Supplies are provided by [employer] (online) and paid by Medicare. Bowel program: n/a If lives locally within the [facility] catchment area, will need to WOCN consult entered to have annual ostomy assessment and renewal of supply order Accidents: n/a PREVENTATIVE AND HEALTH PROMOTION NEEDS: Last colonoscopy/colon cancer screening: Declined. Family history of colon cancer: Yes. /el/ Maryellen Hill, RN SCI/D Linux Engineer Signed: 01/08/2023 13:38 Receipt Acknowledged By: * AWAITING SIGNATURE * NANCY LAWSON [facility]ST[facility]
--- OUTSIDE RECORDS SUMMARY | 2023-11-18 12:42 | XMS_ITS | Encounter Summary ---
Author Name [facility] of [facility] Organization [facility] Address [address] [place] [id number] Support Name Relationship Address Phone WADE DEGROOT Next of Kin [address] [place] [address] WADE DEGROOT Emergency Contact [address] [place] [address] CHANTEL DEGROOT Next of Kin [place] JIM DENNISON Emergency Contact [facility] CON SENT FOR TELEH [place] Insurance Providers: All historical and current [...] PART B Jul 12, 2004 PART B [id number] [facility] [phone] Kasie DEGROOT RED PATIENT MEDICARE (WNR) MEDICARE (M) PART A Oct 11, 2002 PART A [id number] [phone] Kasie DEGROOT RED PATIENT Selected Encounter This section includes the information on record at [place] for the Encounter. Date/Time Encounter Type Encounter Description Reason Provider Source Jan 30, 2023 10:30 AM DIABETIC MANAGEMENT PROGRAM, [facility] ICD-10-CM G82.20 Paraplegia, unspecified TIGIST BASSETT Encounter Template Text not used by [facility] Assessments - Encounter Diagnoses This section includes the primary and secondary diagnoses documented for the Encounter. Date/Time Primary/Secondary Diagnosis Diagnosis Name Provider Source Jan 30, 2023 10:30 AM PRIMARY Paraplegia, unspecified TIGIST BASSETT [facility] Plan of Treatment: Future Appointments (+ 6 months) and Future Tests (+/- 45 days) The Plan of Treatment section includes future care activities for the patient from all [place] [facility]. This section includes future appointments and future orders which are active, pending or scheduled. Future Appointments This section includes appointments that were scheduled to occur 6 months from the date of the Encounter, up to a maximum of 20 appointments. The data comes from all [place] treatment facilities. Appointment Date/Time Appointment Type Appointme nt Facility Name Feb 05, 2023 08:30 AM AMBULATORY - REHAB [facility]ICIN [facility] Feb 05, 2023 09:00 AM AMBULATORY - REHAB MEDICIN [facility] Feb 05, 2023 10:30 AM [facility]IN [facility] Feb 05, 2023 11:00 AM AMBULATORY - REHAB MEDICIN E [facility] Feb 05, 2023 01:00 PM AMBULATORY - REHAB MEDICIN E [facility] Feb 05, 2023 02:00 PM AMBULATORY - REHAB MEDICIN [facility] Feb 05, 2023 02:30 PM AMBULATORY - REHAB MEDICIN [facility] Feb 08, 2023 02:00 PM AMBULATORY - REHAB MEDICIN [facility] Feb 13, 2023 11:00 AM AMBULATORY - REHAB MEDICIN [facility] Feb 13, 2023 01:00 PM AMBULATORY - REHAB MEDICIN E [facility] Jun 10, 2023 01:00 PM AMBULATORY - REHAB MEDICIN E [facility] Jun 13, 2023 07:00 AM AM[facility]ORY - NONE [place] [facility] Lab Results: +/- 30 days of the encounter This section includes the Chemistry and Hematology Lab Results on record with [place] for the patient. Radiology Reports and Pathology Reports are provided separately, in subsequent sections. Lab Results This section contains the Chemistry/Hematology Results that were resulted 30 days before or 30 daysafter the date of the Encounter. Date/Time Source Result Type Result - Unit Interpretation Reference Range Comment Feb 13, 2023 11:05 AM [facility] CYSTATIN C WITH EGFR Specimen Type: PLASMA No comment entered. Ordering Provider: ISAIAH BOWMAN Report Released Date/Time: Feb 05, 2023 03:10 PM Reporting Lab: [facility] [id number] Performing Lab: [facility] [id number] CYSTATIN C 1.27 H 0.51-1.05 CYST C EGFR(CKD-EPI ) 53 L >60 Feb 13, 2023 11:05 AM [facility] BASIC METABOLIC PANEL+MG Specimen Type: PLASMA No comment entered. Ordering Provider: ISAIAH BOWMAN Report Released Date/Time: Feb 05, 2023 03:10 PM Reporting Lab: [facility] [id number] Performing Lab: [facility] [id number] CREATININE 0.7 0.7-1.2 UREA NITROGEN 15 8-26 GLUCOSE 140 H 70-100 SODIUM 135 L 136-145 POTASSIUM 4.0 3.5-5.1 CHLORIDE 99 98-107 CO2 29 22-29 CALCIUM 9.2 8.4-10.2 MAGNESIUM 2.0 1.6-2.6 ANION GAP 7 5-15 CREAT EGFR(CKD-EPI ) >90 >60 Advance Directives: All historical and current Section Date Range: From patient's date of to the date document was created. This section includes ALL of a patient's completed or amended [place] Advance and Rescinded Directives. The entries below indicate that a directive exists for the patient, but an actual copy is not included with this document. The data comes from all [place] facilities. Date Advance Directives Provider Source Feb 05, 2023 ADVANCE DIRECTIVE DISCUSSION GUSTAVO ABAD [facility] Encounter Notes: All associated encounter notes This section contains the clinical notes associated to the Encounter. Date/Time Encounter Note(s) Provider Source Jan 30, 2023 11:20 AM INTEGRATIVE HEALTH NOTE: LOCAL TITLE: SCI/D WHOLE HEALTH NOTE STANDARD TITLE: [facility]TE[facility]AT[facility] HEALTH NOTE DATE OF NOTE: JAN 30, 2023@11:20 ENTRY DATE: JAN 30, 2023@11:20:37 AUTHOR: TIGIST BASSETT COSIGNER: URGENCY: STATUS: COMPLETED Vet verified address and phone number and emergency contact. Vet gave verbal permission to conduct [facility] appointment Personal Health Inventory(PHI) What really matters to you in your life? Getting up and having a good day What brings you a sense of radha and happiness? my RATE WHERE YOU FEEL YOU ARE ON THE SCALES BELOW FROM 1-5, WITH 1 BEING MISERABLE AND 5 BEING GREAT. Physical Wellbein Mental/Emotional Wellbein Life: How is it to live your day-to-day life?: 4 Where you are and where you would like to be? AREAS OF WHOLE HEALTH Working the Body: Energy and Flexibility Moving and doing physical activities like wheeling, walking, dancing, gardening, sports, lifting weights, yoga, swimming, and working out in a gym. Where I am now: What are the reasons you choose this number? -moves upper body a lot during the day -does not do home exercises for upper body Where I want to be: What changes could you make to help you get there? -thinking about getting back into therapy for upper body Recharge: Sleep and Refresh Getting enough rest, relaxation, and sleep. Where I am now: 4 What are the reasons you choose this number? -some days more energized than others -can get tired out in the afternoon, but does not nap -goes to bed around 2200 and gets up around 0800 Where I want to be: What changes could you make to help you get there? Food and Drink: Nourish and Refuel Eating healthy, balanced meals with plenty of fruits and vegetables each day. Drinking enough water and limiting sodas, sweetened drinks, and alcohol. Where I am now: What are the reasons you choose this number? -does both takeout and home cooked foods -breakfast: oatmeal and Ensure -water is main fluid intake -does not eat much fresh fruit and vegetables Where I want to be: What changes could you make to help you get there? -dinner-maybe some less take-out Personal Development: Personal life and Work life Learning and growing. Developing abilities and talents. Balancing responsibilities where you live, volunteer, and work. Where I am now: What are the reasons you choose this number? -most of the time watches TV, including [employer], [employer], [employer], police shows -in the summer, spends more time in the garage or sitting outside -collects knives, does some reading, puzzles Where I want to be: What changes could you make to help you get there? -for the most part, happy with how he spends his days Family, Friends, and Co-Workers: Relationships Feeling listened to and connected to people you love and care about. The quality of your communications with family, friends, and co-workers. Where I am now: What are the reasons you choose this number? -most relationships are enjoyable, especially with grand kids and great grand kids -has card club this week, which is typically once per month Where I want to be: What changes could you make to help you get there? Surroundings: Physical and Emotional Feeling safe. Having comfortable, healthy spaces where you work and live. The quality of the lighting, color, air, and water. Decreasing unpleasant clutter, noises and smells. Where I am now: What are the reasons you choose this number? -has larger doors so it is WC accessible -batheroom and shower are WC accessible -has ceiling lift in bedroom -[place] pays for home health aide three times per week Where I want to be: What changes could you make to help you get there? Power of the Mind: Relaxing and Healing Tapping into the power of your mind to heal and cope. Using mind-body techniques like relaxation, breathing, or guided imagery. Where I am now: What are the reasons you choose this number? -usually will talk things through with his Where I want to be: What changes could you make to help you get there? Spirit and Soul: Growing and Connecting having a sense of purpose and meaning in your life. Feeling connected to something larger than yourself. Finding strength in difficult times. Where I am now: 4 What are the reasons you choose this number? -usually says Rosary everyday -got away from going to voodoo in person since COV Where I want to be: What changes could you make to help you get there? Professional Care: Prevention and Clinical Care Staying up to date on prevention and understanding your health concerns, care options, treatment plan, and their role in your health. Where I am now: 5 What are the reasons you choose this number? Where I want to be: 5 What changes could you make to help you get there? REFLECTIONS: Now that you have thought about what matters to you in these areas, what is your vision of your best possible self? What would your life look like? What kind of activities would you be doing? -pretty happy with the way things are Are there any areas you would like to work on? Where might you start? /es/ TIGIST BASSETT REGISTERED NURSE Signed: 01/30/2023 11:28 TIGIST BASSETT [facility]
--- OUTSIDE RECORDS SUMMARY | 2023-11-18 12:42 | XMS_ITS | Encounter Summary ---
Author Name Department of Vetera Affairs Organization [facility] of Veter[facility] ns Affairs Address [address] [place] [id number] Support Name Relationship Address Phone WADE DEGROOT Next of Kin [address] [place] [address] WADE DEGROOT Emergency Contact [address] [place] [address] CHANTEL DEGROOT Next of Kin [address] JIM DENNISON Emergency Contact [facility] CON SENT FOR TELEH [place] Insurance Providers: All historical and current Section [...] PART B Jul 12, 2004 PART B [id number] [phone] Kasie DEGROOT RED PATIENT MEDICARE (WNR) MEDICARE (M) PART A Oct 11, 2002 PART A [id number] [id number] [phone] Kasie DEGROOT RED PATIENT Selected Encounter This section includes the information on record at [place] for the Encounter. Date/Time Encounter Type Encounter Description Reason Pro vider Source Jan 09, 2023 02:21 PM Outpatient Encounter [facility] Encounter Template Text not used by [place] [...] 10:30 AM AMBULATORY - RE[facility]AB [facility]IC[facility] Feb 05, 2023 08:30 AM AMBULATORY - REHAB MEDICIN [facility] Feb 05, 2023 09:00 AM AMBULATORY - REHAB MEDICIN [facility] Feb 05, 2023 10:30 AM AMBULATORY - REHAB MEDICIN [facility] Feb 05, 2023 11:00 AM AMBULATORY - REHAB MEDICIN [facility] Feb 05, 2023 01:00 PM AMBULATORY - REHAB MEDICIN [facility] Feb 05, 2023 02:00 PM AMBULATORY - RE[facility]AB MEDICIN [facility] Feb 05, 2023 02:30 PM AMBULATORY - REHAB MEDICIN [facility] Feb 08, 2023 02:00 PM AMBULATORY - REHAB MEDICIN [facility] Feb 13, 2023 11:00 AM AMBULATORY - REHAB MEDICIN [facility] Feb 13, 2023 01:00 PM AMBULATORY - REHAB MEDICIN [facility] Jun 10, 2023 01:00 PM AMBULATORY - REHAB MEDICIN [facility] Jun 13, 2023 07:00 AM [facility] - NONE [place] [facility] Advance Directives: All historical and current Section Date Range: From patient's date of to the date document was created. This section includes ALL of a patient's completed or amended [place] Advance and Rescinded Directives. The entries below indicate that a directive exists for the patient, but an actual copy is not included with this document. The data comes from all [facility]. Date Advance Directives Provider Source Feb 05, 2023 ADVANCE DIRECTIVE DISCUSSION GUSTAVO ABAD [facility] Encounter Notes: All associated encounter notes This section contains the clinical notes associated to the Encounter. Date/Time Encounter Note(s) Provider Source Jan 09, 2023 02:21 PM REPORT OF CONTACT: LOCAL TITLE: APPOINTMENT SCHEDULING NOTE STANDARD TITLE: REPORT OF CONTACT DATE OF NOTE: JAN 09, 2023@14:21 ENTRY DATE: JAN 09, 2023@14:21:44 AUTHOR: JAJA JACKSON EXP COSIGNER: URGENCY: STATUS: COMPLETED Attempted to schedule Return to clinic (RTC) Contact attempt made to 1st attempt Telephone wants to call back to schedule If Leivasy calls back, schedule appt for: [facility] SC[facility] -[facility] [place] on 02/05/2023. YORDY SCID WOCN TEAM annual ostomy eval, on 02/05 with other AE appts please /el/ JAJA JACKSON ADV [employer] Electric Melt Operator Signed: 01/09/2023 14:23 JAJA JACKSON [facility]
--- OUTSIDE RECORDS SUMMARY | 2023-11-18 12:42 | XMS_ITS | Encounter Summary ---
Author Name [facility] Organization [facility] Address [address] [place] [id number] Support Name Relationship Address Phone WADE CULLEN Next of Kin [address] [place] [place] [address] WADE CULLEN Emergency Contact [address] [place] [address] CHANTEL CULLEN Next of Kin [place] JIM DENNISON Emergency Contact [place] [place] CON SENT FOR [place] Insurance Providers: All historical and current Section [...] PART B Jul 12, 2004 PART B [id number] [facility] [phone] Kasie CULLEN RED PATIENT MEDICARE (WNR) MEDICARE (M) PART A Oct 11, 2002 PART A [id number] [phone] Kasie CULLEN RED PATIENT Selected Encounter This section includes the information on record at [place] for the Encounter. Date/Time Encounter Type Encounter Description Reason Provider Source Feb 05, 2023 11:00 AM PSYCH DIAGNOSTIC EVALUATION [facility] ICD-10-CM F32.A Depression, unspecified MAHSA VELEZ IHEvelyn Encounter Template Text not used by [facility] Assessments - Encounter Diagnoses This section includes the primary and secondary diagnoses documented for the Encounter. Date/Time Primary/Secondary Diagnosis Diagnosis Name Provider Source Feb 05, 2023 11:00 AM PRIMARY Depression, unspecified TAMERA VELEZ [facility] Feb 05, 2023 11:00 AM SECONDARY Anxiety disorder, unspecified TAMERA VELEZ [facility] Feb 05, 2023 11:00 AM SECONDARY Paraplegia, unspecified TAMERA VELEZ [facility] Plan of Treatment: Future Appointments (+ 6 months) and Future Tests (+/- 45 days) The Plan of Treatment section includes future care activities for the patient from all [place] [facility]. This section includes future appointments and future orders which are active, pending or scheduled. Future Appointments This section includes appointments that were scheduled to occur 6 months from the date of the Encounter, up to a maximum of 20 appointments. The data comes from all [place] treatment facilities. Appointment Date/Time Appointment Type Appointme nt Facility Name Feb 08, 2023 02:00 PM AMBULATORY - REHAB MEDICIN E [facility] Feb 13, 2023 11:00 AM AMBULATORY - REHAB MEDICIN [facility] Feb 13, 2023 01:00 PM AMBULATORY - REHAB MEDICIN [facility] Jun 10, 2023 01:00 PM AMBULATORY - REHAB MEDICIN [facility] Jun 13, 2023 07:00 AM AMBULATORY - NONE [facility] Lab Results: +/- 30 days of the encounter This section includes the Chemistry and Hematology Lab Results on record with [place] for the patient. Radiology Reports and Pathology Reports are provided separately, in subsequent sections. Lab Results This section contains the Chemistry/Hematology Results that were resulted 30 days before or 30 daysafter the date of the Encounter. Date/Time Source Result Type Result - Unit Interpretation Reference Range Comment Feb 13, 2023 11:05 AM [facility] CYSTATIN C WITH EGFR Specimen Type: PLASMA No comment entered. Ordering Provider: ISAIAH BOWMAN Report Released Date/Time: Feb 05, 2023 03:10 PM Reporting Lab: [facility] [id number] Performing Lab: [facility] [id number] CYSTATIN C 1.27 H 0.51-1.05 CYST C EGFR(CKD-EPI ) 53 L >60 Feb 13, 2023 11:05 AM [facility] BASIC METABOLIC PANEL+MG Specimen Type: PLASMA No comment entered. Ordering Provider: ISAIAH BOWMAN Report Released Date/Time: Feb 05, 2023 03:10 PM Reporting Lab: [facility] [id number] Performing Lab: [facility] [id number] CREATININE 0.7 0.7-1.2 UREA NITROGEN 15 8-26 [...] 2023 03:39 PM 225 lb 33 [facility] Advance Directives: All historical and current Section Date Range: From patient's date of to the date document was created. This section includes ALL of a patient's completed or amended [place] Advance and Rescinded Directives. The entries below indicate that a directive exists for the patient, but an actual copy is not included with this document. The data comes from all [place] facilities. Date Advance Directives Provider Source Feb 05, 2023 ADVANCE DIRECTIVE DISCUSSION GUSTAVO ABAD [facility] Encounter Notes: All associated encounter notes This section contains the clinical notes associated to the Encounter. Date/Time Encounter Note(s) Provider Source Feb 06, 2023 11:05 AM SUICIDE PREVENTION RISK ASSESSMENT SCREENING NOTE: LOCAL TITLE: SUICIDE RISK ASSESSMENT NOTE STANDARD TITLE: SUICIDE PREVENTION RISK ASSESSMENT SCREENING NOT DATE OF NOTE: FEB 06, 2023@11:05 ENTRY DATE: FEB 06, 2023@14:49:09 AUTHOR: BINU VELEZ EXP COSIGNER: URGENCY: STATUS: COMPLETED SUICIDE RISK ASSESSMENT NOTE Past Suicidal Behavior 1. ATTEMPTS: Has the patient ever attempted suicide? No Has the patient attempted suicide on multiple occasions? No Number of times and approximate month/year of most recent suicide attempt? 0 Methods used to attempt suicide: N/A Desire and Ideation 2. DESIRE: Does the patient think about wanting to be ? No 3. IDEATION: Has the patient been having thoughts of suicide? No If yes, frequency? (e.g. hourly, fleeting, circumstantial...) Plans and Preparations 4. PLANS: Does the patient have a suicide plan? No If yes, what is it? (How specific? When?) 5. MEANS: Does the patient have access to the means in their plan? N/A 6. PREPARATION: Has the patient made preparations to enact their plan? (e.g. buying pills) N/A Comments: 7. INTENT: Patient's rating of their intent to act on their suicidal thoughts (0=none, 10=highest) 0 Other Related Indicators 8. MENTAL HEALTH DIAGNOSIS (MH): Has the patient been diagnosed with a psychiatric condition (including substance use disorders)? Yes 9. IMPULSIVE COPING: Does the patient have a history of coping with negative feelings impulsively? No 10. SELF-INJURY: Does the patient have a history of non-suicidal self-directed violence (e.g. cutting)? No If yes, how recently? Typical method (e.g. cutting...)? 11. RELATED THOUGHTS: Has the patient been feeling hopeless? No Has the patient been feeling like a burden on/liability to others? No Does the patient have an unmet need to feel connected to others? No 12. Over the PAST WEEK: a. Has patient experienced life-altering stressors? (e.g. job loss, )? No b. Has patient withdrawn from valued social activities or relationships? No c. Has the patient had episodes of severe emotional distress? No d. Has the patient had problems sleeping or been having nightmares? No e. Has the patient been increasingly irritable and agitated? No Suicide risk was assessed according to VACO guidelines and Manager Zone et al. (1999) and determined to be LOW. Risk will continue to be monitored. Based on this determination, the following actions were taken in today's appointment: -Encouraged seeking social support when distressed -Gave emergency resources - [place]'s Crisis Line dial [phone] then press 1, 371, or local ER - to use if in distress -Recommended meeting with [facility] Psychology for annual evaluations /es/ BINU VELEZ, PhD, STAFF PSYCHOLOGIST Signed: 02/06/2023 14:51 BINU VELEZ [facility] Feb 05, 2023 11:00 AM PSYCHOLOGY NOTE: LOCAL TITLE: SCI/D PSYCHOLOGY ANNUAL EXAM STANDARD TITLE: PSYCHOLOGY NOTE DATE OF NOTE: FEB 05, 2023@11:00 ENTRY DATE: FEB 05, 2023@11:00:42 AUTHOR: BINU VELEZ EXP COSIGNER: URGENCY: STATUS: COMPLETED SCI/D PSYCHOLOGY ANNUAL EVALUATION SUMMARY AND RECOMMENDATIONS: was given information about Psychology services available in the [facility] including direct contact information for this provider. He is prescribed bupropion and lorazepam by his PCP and feels medications are helpful for managing depression and anxiety. He scored in the very high range on a measure of life satisfaction. [place] acknowledged frustration with functional limitations and difficulty accepting his disability at times. He was made aware of [facility] services (individual and couple psychotherapy, caregiver support, and groups) to access if he is interested. We will plan to follow-up with him as part of routine annual evaluations, unless otherwise indicated. DIAGNOSTIC IMPRESSIONS: Depression, unspecified (ICD-10-CM F32.A) Anxiety disorder, unspecified (ICD-10-CM F41.9) Paraplegia, unspecified (ICD-10-CM G82.20) TYPE OF SERVICE: Visit conducted by synchronous telehealth. [place] verbal consent obtained. Location/emergency number confirmed. Environment surveyed and all participants identified. Virtual conference room locked. This psychological evaluation is based on a clinical interview and review of the medical records. Informed consent for treatment, confidentiality, limits and benefits of treatment were reviewed with patient and they indicated understanding and agreement. He assented to his being present and participating in this interview. CURRENT STATUS: Mr. 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 He was seen by Binu Velez, PhD, LP to complete the Psychology portion of his first SCI/D annual evaluation at the [facility]. [place] resides with his , Wade, in [place], [place]. They described the trajectory of his medical course, including initial diagnosis of spinal tumor in 1999 (2 surgeries in 1999, then a 3rd in 2000 with subsequent radiation). He was able to walk for the first few years (with a walker, then crutches, then 2 canes, then 1 cane). The tumor grew again in 2005 and he had cyberknife radiation; by 2006 he had lost complete use of his legs. It started growing again in 2009 and they surgically removed the final piece (they had previously left a small bit in to preserve the spinal cord). Ayana had used Medicare for health insurance and then Wade had rotator cuff surgery in June of 2022 and they needed help, so [facility] at that time. Ayana has had a few issues over the years (e.g., blood clots [on warfarin], a wound with abscess in 2017 [necrotizing fasciitis] that led to him staying in a [facility] for 3 months), but his health and functioning have been stable the last few years. Ayana spends most of his time at home watching television and outside in the garage when weather permits. 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 He acknowledged is it difficult to accept not being able to use his legs, given how active he was in the past. He is grateful he is still able to drive. MENTAL HEALTH HISTORY: Ayana has previously been diagnosed with depression and anxiety. He met with a community psychologist through the [facility] clinic for a few months in [id number] to address adjustment to disability, and his joined those sessions. He is prescribed bupropion and lorazepam by his PCP. The anxiety medication was first given around the time of one of his tumor surgeries. He has never had an inpatient psychiatric hospitalization or made a suicide attempt. SOCIAL HISTORY: Family of origin: Ayana was born and raised in [place], [place] by his , biological parents. He is the 3rd of 7 children with 4 sisters and 2 brothers. He denied any history of physical, emotional, or sexual abuse. Educational history: Ayana denied any difficulty with learning and graduated from high school on time. He did not attend college. history: Ayana enlisted in the [employer] and served from 1965 - 1969 and then again from [id number]. 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 He reported he was stationed in [employer] for a time. He denied exposure to combat. 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 Ayana stopped working in 1999 when he was diagnosed with the spinal tumor. Marriage/adult family: Manuel have been for 55 years. They have 2 children (1 son, 1 daughter), 4 grandchildren, and 5 great-grandchildren. Their daughter lives 30 minutes away and the rest of the family lives very close to them. MEDICAL STATUS: Please refer to SCI Annual Exam note dated 02/05/[address] Isaiah Bowman for details regarding [place]'s medical history and current medical status. REHABILITATION AND HEALTH MAINTENANCE BEHAVIORS: Substance Use: Denied any current or recent alcohol use. No history of problematic or excessive use. No history of chemical dependency treatment. Denied any past or current use of illicit drugs. Tobacco Use: Lifetime non-user of tobacco. Sleep Hygiene: Denied problems with sleep onset or maintenance. Gets 8 hours of restorative sleep per night. Does not nap. Energy: Good, sufficient for daily activities. Skin Protection: No concerns reported. Appetite/Eating/Nutrition/We ight: Appetite is good. Would like to lose weight. cooks or they do take-out or go out to eat. Physical Activity: No regular exercise program. Interested in resuming PT for strength training and upper body exercise. Will talk with PCP in [place] about a referral. Cognition: Denied significant concern about or changes in memory, attention, thinking, or decision-making. His noted he is still very good at problem- solving. No known family history of dementia. Cognition not formally tested during today's interview, though appeared generally intact. Emotional Functioning (Mood, Motivation, Loss): Acknowledged he gets frustrated with functional limitations and wants to be able to do more. He enjoys being with his grandsons and giving them some direction on how to use his tools. Medications are helpful for mood and anxiety, and he feels he is coping as best he can. Relationships and Sexuality: Described a strong relationship with his . They are good buddies, considerate of each other, affectionate, and show respect, love, and care for one another daily. Reviewed resources available for sexual dysfunction or intimacy concerns should they arise in the future. No interventions requested at this time. Chronic Pain: Endorsed pain in his lower back. Takes 2 extra strength Tylenol 3x/day and 10 mg oxycodone 4x/day. Also uses an ice pack for pain relief. Current treatment is effective and no additional interventions were requested. Vocational Activities/Interests: Watches television, helps around the house, spends time outside in the garage. Previously enjoyed working on cars, hunting, golfing, doing yard work and snow removal. MENTAL STATUS EXAM: Ambulation/Mobility: Uses a power wheelchair for mobility (since 2007, manual wheelchair prior to that). General Appearance/Presentation: Casually dressed, well-groomed. Orientation: Alert and oriented to person, place, time, and situation. Behavior/Manner: Cooperative, pleasant, and engaged. Motor Activity: No unusual motor activity outside of limits due to medical condition. Speech: Clear and fluent. Affect: Restricted in range. Mood: Frustrated at times. Thought Process: Linear, logical, and goal-directed. Thought Content: No evidence of visual or perceptual disturbance. Judgment: Good. Insight: Good. Motivation for treatment: Takes medication for mood and anxiety. Open to psychotherapy in the future if needed. RISK ASSESSMENT: Acute Suicide Risk Level Impression: LOW. No active risks for suicide. Protective factors and coping strategies are present. See Suicide Risk Assessment Note dated 02/05/23. Other safety issues: Self-injurious behaviors: Denied. Homicidal ideation: Denied. Violent thoughts: Denied. TESTING: Satisfaction With Life Scale (SWLS): Total score = 35/35 (items: 7, 7, 7, 7, 7) very high score with regard to life satisfaction. Patient Health Questionnaire (PHQ-9): Total score = 1/27, symptoms of depression not present. These self-report measures are consistent with his responses during the interview. PHQ-9 Items: 1. Little interest or pleasure in doing things Not at all 2. Feeling down, depressed, or hopeless Not at all 3. Trouble falling or staying asleep, or sleeping too much Not at all 4. Feeling tired or having little energy Not at all 5. Poor appetite or overeating Not at all 6. Feeling bad about yourself - or that you are a failure or have let yourself or your family down Several days 7. Trouble concentrating on things, such as reading the newspaper or watching television Not at all 8. Moving or speaking so slowly that other people could have noticed? Or the opposite - being so fidgety or restless that you have been moving around a lot more than usual Not at all 9. Thoughts that you would be better off or of hurting yourself in some way Not at all Education was provided during this session. -[place] indicated readiness to learn. - indicated understanding by asking questions and making appropriate comments. Date of Service: 02/05/23 Record Review: 5 minutes Patient Contact: 45 minutes Report Writin minutes Consultation: N/A /el/ BINU VELEZ, PhD, STAFF PSYCHOLOGIST Signed: 02/06/2023 14:48 BINU VELEZ [facility]
--- OUTSIDE RECORDS SUMMARY | 2023-11-18 12:42 | XMS_ITS | Encounter Summary ---
Author Name Department of Vetera Affairs Organization Department of Vetera ns Affairs Address [address] [place] [address] Support Name Relationship Address Phone WADE DEGROOT Next of Kin [address] [place] [address] WADE DEGROOT Emergency Contact [address] [place] [address] CHANTEL DEGROOT [facility] [place] JIM DENNISON Emergency Contact [facility] [employer] CON SENT FOR [place], [place] Insurance Providers: All historical and current [...] PART B Jul 12, 2004 PART B [id number] [phone] Kasie DEGROOT RED PATIENT MEDICARE (WNR) MEDICARE (M) PART A Oct 11, 2002 PART A [id number] [phone] Kasie DEGROOT RED PATIENT Selected Encounter This section includes the information on record at [place] for the Encounter. Date/Time Encounter Type Encounter Description Reason Provider Source Feb 05, 2023 01:00 PM OFFICE O/P EST MOD 30-39 MIN [facility] ICD-10-CM G82.20 Paraplegia, unspecified ISAIAH BOWMAN Encounter Template Text not used by [place] Assessments - Encounter Diagnoses This section includes the primary and secondary diagnoses documented for the Encounter. Date/Time Primary/Secondary Diagnosis Diagnosis Name Provider Source Feb 05, 2023 01:00 PM PRIMARY Paraplegia, unspecified ISAIAH BOWMAN [facility] Feb 05, 2023 01:00 PM SECONDARY Colostomy status ISAIAH BOWMAN [facility] Feb 05, 2023 01:00 PM SECONDARY Neurogenic bowel, not elsewhere classified ISAIAH BOWMAN [facility] Feb 05, 2023 01:00 PM SECONDARY Neuromuscular dysfunction of bladder, unspecified JYOTI BOWMANN Hever [facility] Feb 05, 2023 01:00 PM SECONDARY Presence of urogenital implants ISAIAH BOWMAN [facility] Plan of Treatment: Future Appointments (+ 6 months) and Future Tests (+/- 45 days) The Plan of Treatment section includes future care activities for the patient [facility] [place] [facility] This section includes future appointments and [...] 02:00 PM AMBULATORY - REHAB MEDICIN E [facility] Feb 13, 2023 11:00 AM AMBULATORY - REHAB MEDICIN E [facility] Feb 13, 2023 01:00 PM AMBULATORY - REHAB MEDICIN E [facility] Jun 10, 2023 01:00 PM AMBULATORY - REHAB MEDICIN E [facility] Jun 13, 2023 07:00 AM AMBULATORY [...] Range Comment Feb 13, 2023 11:05 AM [facility] CYSTATIN C WITH EGFR Specimen Type: PLASMA No comment entered. Ordering Provider: ISAIAH BOWMAN Report Released Date/Time: Feb 05, 2023 03:10 PM Reporting Lab: [facility] [id number] Performing Lab: [facility] [id number] CYSTATIN C 1.27 H 0.51-1.05 CYST C EGFR(CKD-EPI ) 53 L >60 Feb 13, 2023 11:05 AM [facility] BASIC METABOLIC PANEL+MG Specimen Type: PLASMA No comment entered. Ordering Provider: ISAIAH BOWMAN Report Released Date/Time: Feb 05, 2023 03:10 PM Reporting Lab: [facility] [id number] Performing Lab: [facility] [address] CREATININE 0.7 0.7-1.2 UREA NITROGEN 15 8-26 [...] 03:39 PM 225 lb 33 [place] [facility] Advance Directives: All historical and current [...] 05, 2023 ADVANCE DIRECTIVE DISCUSSION GUSTAVO ABAD [facility] Encounter Notes: All associated encounter notes This section contains the clinical notes associated to the Encounter. Date/Time Encounter Note(s) Provider Source Feb 05, 2023 12:58 PM SPINAL CORD INJURY ANNUAL EVALUATION NOTE: LOCAL TITLE: SCI ANNUAL EXAM STANDARD TITLE: SPINAL CORD INJURY ANNUAL EVALUATION NOTE DATE OF NOTE: FEB 05, 2023@12:58 ENTRY DATE: FEB 05, 2023@12:59 AUTHOR: ISAIAH BOWMAN EXP COSIGNER: URGENCY: STATUS: COMPLETED SCI/D Telemedicine Annual Evaluation Note CC: AE HPI: Mr. DEGROOT is a 77 yo M w/ incomplete paraplegia s/p ependymoma resection who is seen for AE via telemedicine. Information is obtained from the patient, spouse and from chart review. Briefly, Mr. DEGROOT reports that he has generally been doing well since last seen in SCI/D clinic in July 2022; see notes for details. [facility] and [facility]ing within the last few days; catheter was changed and Ucx completed, pending at this point. On SCI/D issue- specific basis, he reports: SCI/D ROS: FUNCTION: *ADLs: assistance from spouse for most ADLs/IADLs, ind w/ some basic self cares; has home care *Mobility: PWC, has seating clinic appt coming up next week *Falls: none reported *Cognition: none currently NEUROLOGIC STATUS: Denies worsening of sensation, strength or function BLADDER: SPT, concern for bypassing, UCx pending as above BOWEL: colostomy, no new concerns noted but does take MOM regularly SKIN: denies concern for new wounds SPASTICITY: LE rigid at times per spouse; currently on oral baclofen but did have ITB pump in the past; spouse notes there was concern for overdose at one point, and he did better at lower dose; however did have meningitis and system was removed (unclear if catheter removed specifically) PAIN: no new pain reported; continues on oxycodone, gabapentin and APAP REVIEW OF SYSTEMS: As above ======== PROBLEM LIST / PMH / PSH: Active problems - Computerized Problem List is the source for the followin. Dementia 2. COPD - Chronic Obstructive Pulmonary Disease ([facility] [id number]) 3. Chronic Pain Syndrome ([facility] [id number]) 4. HTN - Hypertension ([facility] [id number]) 5. Hyponatremia 6. Anemia ([facility] [id number]) 7. Supraventricular tachycardia 8. Diabetes Mellitus Type 2 ([facility] [id number]) 9. Constipation ([facility] [id number]) 10. 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 Autonomic dysreflexia 13. History of pressure injury 14. Abnormal liver function 15. History of Deep Vein Thrombosis ([facility] [id number]) 16. Tinnitus ([facility] [id number]) 17. Hearing Loss ([facility] [id number]) 18. Long-term current use of anticoagulant 19. Osteoporosis ([facility] [id number]) 20. Vitamin D Deficiency ([facility] 7244637) 21. Hyperlipidemia ([facility] [id number]) 22. Neurogenic Bladder ([facility] [id number]) 23. Neurogenic bowel 24. Continuous opioid dependence 25. Anxiety ([facility] [id number]) 26. Suprapubic urinary catheter in situ 27. Colostomy present 28. Paraplegia SOCIAL Hx: Lives in [place], [place] w/ spouse, has home care service, no access concerns. Has primary care comanagement in community. ======== ALLERGIES Allergies: FACILITY ALLERGY/ADR -------- No Remote Allergy/ADR Data available for this patient [facility] HCS AMOXICILLIN [facility] METOLAZONE [facility] MORPHINE [facility] PIPERACILLIN [facility] SULFA DRUGS [facility] TAZOBACTAM SODIUM MEDICATIONS: Active Outpatient Medications (including Supplies): Active Outpatient Medications Status 1) BAG,LEG CONVEEN #5170 USE 1 TOPICALLY DIRECTED ACTIVE 2) UNDERPAD,BED ULTRASORB [id number] M#3136 USE 1 PAD ACTIVE TOPICALLY NEEDED 3) URINARY DRAINAGE BAG BARD #005530 USE BAG TOPICALLY ACTIVE DIRECTED Active Non-VA Medications Status 1) Non-VA ACETAMINOPHEN 500MG TAB 1000MG MOUTH [...] AND 7.5MG ACTIVE MOUTH ALL OTHER DAYS 23 Total Medications ======== PHYSICAL EXAMINATION: GENERAL: Alert, cooperative, NAD during visit RESP: breathing unlabored, no cough during visit NEUROLOGIC: stable appearing, formal exam deferred given nature of VVC visit ======== ASSESSMENT/PLAN: Mr. DEGROOT is a 77 yo M w/ incomplete paraplegia s/p ependymoma resection who is seen for AE via telemedicine. # Incomplete paraplegia: Medical management as below PT and OT consulted for AE Will order labs as below, remainder completed previously # Bladder: Managed via SPT Discussed role of tx for UTI in setting of chronic catheterization; they will f/u w/ local clinic regarding Ucx results but may call if questions arise Given concern for impaired renal fxn, will repeat cystatin C and Cr when returns to clinic as limited data exists prior to last fall to establish trend # Bowel: Managed via colostomy Would minimize use of MOM if impaired renal function Will f/u on this after labs obtained and RTC # Spasticity: Unclear to me that decreasing oral baclofen dose is needed at this point based on desscription but given his history, would be worthwhile to examine in person Will RTC next week in coordination w/ clinic appointment # Pain: Medications managed through non-VA physician No additional recs at this time but will monitor for changes alina if changes to spasticity management plan are needed # Psych: No interval concerns reported Rehab Psychology during AE. # FOLLOW UP: SCI/D annual evaluation in 1 year; RTC for in-person exam (STEPHANIE and tone) on 02/13 incoordination w/ clinic appt as above Total physician time spent was 35 minutes, with more than 50% spent in counseling and coordination of care for the issues detailed above. SPINAL CORD INJURIES AND DISORDERS STATUS REVIEW Spinal Cord Injury/Disorder PRIMARY DIAGNOSIS - Spinal Cord Injury/Disorder The primary diagnosis information and etiology was reviewed/verified during this encounter. No updates are needed at this time. Etiology Information: Reminder Term: VA-SCI/D ETIOLOGY (OBJ) Health Factor: Sci/D Etiology-Tumor 11/11/2007 Neuro levels, and STEPHANIE information was reviewed/verified during this encounter. No updates are needed at this time. PQD-SCI/D-Neuro Level Sensory Rt Information: Reminder Term: VA-SCI/D NEURO LEVEL-SENSORY RT (OBJ) Health Factor: Sci/D Nli-Sr Unk/Unable 08/01/2022@14:00 PQD-SCI/D-Neuro Level Sensory Lt Information: Reminder Term: VA-SCI/D NEURO LEVEL-SENSORY LT (OBJ) Health Factor: Sci/D Nli-Sl Unk/Unable 08/01/2022@14:00 PQD-SCI/D-Neuro Level Motor Rt Information: Reminder Term: VA-SCI/D NEURO LEVEL-MOTOR RT (OBJ) Health Factor: Sci/D Nli-Mr Unk/Unable 08/01/2022@14:00 PQD-SCI/D-Neuro Level Motor Lt Information: Reminder Term: VA-SCI/D NEURO LEVEL-MOTOR LT (OBJ) Health Factor: Sci/D Nli-Ml Unk/Unable 08/01/2022@14:00 STEPHANIE Grade Information: Reminder Term: VA-SCI/D STEPHANIE GRADE (OBJ) Health Factor: Sci/D Stephanie-Unknown 08/01/2022@14:00 VENTILATION STATUS The ventilation status information was reviewed/verified during this encounter. No updates are needed at this time. Vent Status Information: Reminder Term: VA-SCI/D VENT STATUS (OBJ) Health Factor: Sci/D Vent-No 08/01/2022@14:00 PRIMARY BLADDER MANAGEMENT The bladder management information was reviewed/verified during this encounter. No updates are needed at this time. Emptying Method Information: Reminder Term: VA-SCI/D BLADDER MGMT-EMPTYING METH (OBJ) Health Factor: Sci/D Bladder [place] Cath-Suprapubic 08/01/2022@14:00 Collection Device Information: Reminder Term: VA-SCI/D BLADDER MGMT-COLLECTION (OBJ) Health Factor: Sci/D Bladder Collection-None 08/01/2022@14:00 Surgical Procedure Hx Information: Reminder Term: VA-SCI/D BLADDER MGMT-SURG HX (OBJ) Health Factor: Sci/D Bladder Surg Hx-Suprapubic Cath 08/01/2022@14:00 /el/ ISAIAH BOWMAN MD STAFF PHYSICIAN Signed: 02/05/2023 15:10 ISAIAH BOWMAN [facility]
--- OUTSIDE RECORDS SUMMARY | 2023-11-18 12:43 | XMS_ITS | Encounter Summary ---
Author Name Department of Vetera Affairs Organization Department of Vetera Affairs Address [address] [place] [id number] Support Name Relationship Address Phone WADE CULLEN Next of Kin [address] [place] [address] WADE CULLEN Emergency Contact [address] [place] [address] CHANTEL CULLEN Next of [facility] JIM DENNISON Emergency Contact [employer] [employer] CON SENT FOR [place], [place] Insurance Providers: All historical and current [...] PART B Jul 12, 2004 PART B [id number] [facility] [phone] Kasie CULLEN RED PATIENT MEDICARE (WNR) MEDICARE (M) PART A Oct 11, 2002 PART A [id number] [phone] MIKAYLAF RED PATIENT Selected Encounter This section includes the information on record at [place] for the Encounter. Date/Time Encounter Type Encounter Description Reason Provider Source Feb 13, 2023 01:00 PM WHEELCHAIR MNGMENT TRAINING SPINAL CORD INJURY ICD-10-CM Z73.6 Limitation of activities due to disability LATISHA BUTT Encounter Template Text not used by [facility] Assessments - Encounter Diagnoses This section includes the primary and secondary diagnoses documented for the Encounter. Date/Time Primary/Secondary Diagnosis Diagnosis Name Provider Source Feb 13, 2023 04:02 PM PRIMARY Limitation of activities due to disability DAQUANLATISHA Terry [facility] Feb 13, 2023 04:02 PM SECONDARY Paraplegia, unspecified MAITELATISHA GRACIA [facility] Plan of Treatment: Future Appointments (+ 6 months) and Future Tests (+/- 45 days) The Plan of Treatment section includes future care activities for the patient from [facility] [place] [facility]. This section includes future appointments and future orders which are active, pending or scheduled. Future Appointments This section includes appointments that were scheduled to occur 6 months from the date of the Encounter, up to a maximum of 20 appointments. The data comes from all [place] treatment facilities. Appointment Date/Time Appointment Type Appointme nt Facility Name Jun 10, 2023 01:00 PM AMBULATORY - REHAB MEDICIN E [facility] Jun 13, 2023 07:00 AM AMBULATORY - NONE [facility] Lab Results: +/- 30 days of the encounter This section includes the Chemistry and Hematology Lab Results on record with [place] for the patient. Radiology Reports and Pathology Reports are provided separately, in subsequent sections. Lab Results This section contains the Chemistry/Hematology Results that were resulted 30 days before or 30 daysafter the date of the Encounter. Date/Time Source Result Type Result - Unit Interpretation Reference Range Comment Feb 13, 2023 11:05 AM [facility] CYSTATIN C WITH EGFR Specimen Type: PLASMA No comment entered. Ordering Provider: ISIAAH BOWMAN Report Released Date/Time: Feb 05, 2023 03:10 PM Reporting Lab: [facility] [id number] Performing Lab: [facility] [address] CYSTATIN C 1.27 H 0.51-1.05 CYST C EGFR(CKD-EPI ) 53 L >60 Feb 13, 2023 11:05 AM [facility] BASIC METABOLIC PANEL+MG Specimen Type: PLASMA No comment entered. Ordering Provider: ISAIAH BOWMAN Report Released Date/Time: Feb 05, 2023 03:10 PM Reporting Lab: [facility] [id number] Performing Lab: [facility] [address] CREATININE 0.7 0.7-1.2 UREA NITROGEN 15 8-26 [...] Height Weight Body Mass Index Source Feb 13, 2023 10:58 AM 96.2 F 86 /min 103/66 mm[Hg] 16 /min 98 % 4 [place] [facility] Advance Directives: All historical and current Section Date Range: From patient's date of to the date document was created. This section includes ALL of a patient's completed or amended [place] Advance and Rescinded Directives. The entries below indicate that a directive exists for the patient, but an actual copy is not included with this document. The data comes from all [place] facilities. Date Advance Directives Provider Source Feb 05, 2023 ADVANCE DIRECTIVE DISCUSSION GUSTAVO ABAD [facility] Encounter Notes: All associated encounter notes This section contains the clinical notes associated to the Encounter. 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 By 2006, the vet needed spinal surgery to remove the tumor and became a complete paraplegic. In early 2016 he had what was diagnoses as a superficial [...] August of 2018 he had flap surgery. 02/13/23: Patient presents to SCI/D wheelchair clinic as a follow up to address some concerns related to a new power wheelchair that was issued in September 2022. He reports that his primary concern is feeling as if he is sliding forward out of the wheelchair. He also feels like the backrest is too tight and would like to explore options to widen the backrest. Additionally, he would like the lateral thigh guides moved more forward. OBJECTIVE: Wheelchair Management: -Equipment: [employer] M3 power wheelchair with HP roho cushion and [employer] Backrest. Patient noted to be in a position of mild anterior tilt when driving his PWC in hallways to clinic. Sitting Posture -Obliquity: unremarkable -Rotation: unremarkable -Pelvic Tilt: mod posterior pelvic --> improved to mild w positioning assistance -Scoliosis: unremarkable Education provided on the following topics: -Proper use and sequence of tilt and recline for pressure relief and positioning assistance. -Encouraged use of 10-15 degrees of posterior tilt for positioning assistance and comfort when possible. [place] confirmed that he does not stand for transfers. Shared decision making used to remove anterior tilt as an available seat function. Intervention: -Removed the lateral lumbar supports from the backrest which will increase the overall width of the backrest. -Adjusted the headrest to optimize the head/neck support and comfort. -Removed anterior tilt within ICS programming -Reduced the top forward and turn speeds by [address] -Reduced the top forward and turn acceleration rate by [address] -Manual cushion check revealed appropriate inflation levels with ~1 in air space between B ITs and the seat lewis. -Adjusted positioning of the lateral thigh guides per preference for optimal upper leg alignment -Adjusted home position of the retractable joystick/controller mount to be in- line with the armrest. -Adjusted lap belt positioning strap position to improve pelvic stability. -Driving chair on basic indoor and outdoor surfaces: ( X ) independent ( ) Assist: Comments: Patient demonstrated independent operation of the power wheelchair with standard drive controls, including all power seat functions. Response to treatment: patient and appreciative of education and intervention completed this date. No questions or concerns endorsed at the end of the session. Patient Education of Treatment Plan: Patient indicates readiness to learn, verbalizes understanding, agreement and satisfaction with the treatment plan. Denies further questions. ASSESSMENT: Mr. Cullen is a 77 year old male with complete paraplegia who is returning to sci/d wheelchair clinic for adjustments to his recently issued power wheelchair. Patient presents with impairments in strength, sensation, and activity tolerance which require the need for a mechanical lift for transfers and a power wheelchair for all mobility. Patient's primary concerns for today's session included adjustments to his backrest and to also present sliding forward in his wheelchair. It was noted that he was driving in anterior tilt when he presented to clinic. Various interventions implemented to assist with backrest comfort and positioning assistance including, removal of lateral lumbar supports, deactivation of anterior tilt, repositioning of pelvic positioning belt. Also provided reeducation on use of power seat functions for pressure relief and positioning assistance. All goals met. No questions or concerns endorsed at the end of the session. No further SCI/D wheelchair clinic needs identified at this time. PLAN: Denies need for formal follow up at this time. Patient/ will contact SCI/D wheelchair clinic if any additional questions or concerns arise. Goals: Patient will report an improvement in overall comfort while sitting in his power wheelchair in order to optimize participation in mobility related ADLs. MET Patient will demonstrated independence with PWC operation, including power seat functions in order to optimize participation in mobility related ADLs. MET. /el/ LATISHA BUTT, PT, DPT, NCS, ATP PHYSICAL THERAPIST Signed: 02/13/2023 16:02 Receipt Acknowledged By: * AWAITING SIGNATURE * SUSANA HALEY RYAN P [facility]
--- OUTSIDE RECORDS SUMMARY | 2023-11-18 12:43 | XMS_ITS | Encounter Summary ---
Author Name Department of Vetera ns Affairs Organization Department of Vetera ns Affairs Address [address] [place] [address] Support Name Relationship Address Phone WADE DEGROOT Next of Kin [address] [place] [address] WADE DEGROOT Emergency Contact [address] [place] [address] CHANTEL DEGROOT Next of Kin [place] JIM DENNISON Emergency Contact [facility]BAL [facility] Insurance Providers: All historical and current Section [...] PART B Jul 12, 2004 PART B [id number] [facility] [phone] Kasie DEGROOT RED PATIENT MEDICARE (WNR) MEDICARE (M) PART A Oct 11, 2002 PART A [id number] [id number] [phone] Kasie DEGROOT RED PATIENT Selected Encounter This section includes the information on record at [place] for the Encounter. Date/Time Encounter Type Encounter Description Reason Provider Source Feb 05, 2023 02:00 PM PSYCH DIAGNOSTIC EVALUATION SCI TELEHEALTH VIRTUAL ICD-10-CM G82.20 Paraplegia, unspecified CHIRCOP,TRACY A J IHE Encounter Template Text not used by VA Assessments - Encounter Diagnoses This section includes the primary and secondary diagnoses documented for the Encounter. Date/Time Primary/Secondary Diagnosis Diagnosis Name Provider Source Feb 05, 2023 02:00 PM PRIMARY Paraplegia, unspecified KRZYSZTOFCOPMAMADOU [facility] Plan of Treatment: Future Appointments (+ 6 months) and Future Tests (+/- 45 days) The Plan of Treatment section includes future care activities for the patient [facility] This section includes future appointments and future orders which are active, pending or scheduled. Future Appointments This section includes appointments that were scheduled to occur 6 months from the date of the Encounter, up to a maximum of 20 appointments. The data comes from all [place] treatment facilities. Appointment Date/Time Appointment Type Appointme nt Facility Name Feb 08, 2023 02:00 PM AMBULATORY - [facility]AB [facility] Feb 13, 2023 11:00 AM AMBULATORY - REHAB MEDICIN [facility] Feb 13, 2023 01:00 PM AMBULATORY - REHAB MEDICIN [facility] Jun 10, 2023 01:00 PM AMBULATORY - REHAB MEDICIN E [facility] Jun 13, 2023 07:00 AM AMBULATORY - NONE [facility] Lab Results: +/- 30 days of the encounter This section includes the Chemistry and Hematology Lab Results on record with [place] for the patient. Radiology Reports and Pathology [...] 2023 03:10 PM Reporting Lab: [facility] [id number] Performing Lab: [facility] [id number] CYSTATIN C 1.27 H 0.51-1.05 CYST C EGFR(CKD-EPI ) 53 L >60 Feb 13, 2023 11:05 AM [facility] BASIC METABOLIC PANEL+MG Specimen Type: PLASMA No comment entered. Ordering Provider: ISAIAH BOWMAN Report Released Date/Time: Feb 05, 2023 03:10 PM Reporting Lab: [facility] [id number] Performing Lab: [facility] [id number] CREATININE 0.7 0.7-1.2 UREA NITROGEN 15 8-26 [...] 2023 03:39 PM 225 lb 33 [place] [facility] Advance Directives: All historical and current Section Date Range: From patient's date of to the date document was created. This section includes ALL of a patient's completed or amended [place] Advance and Rescinded Directives. The entries below indicate that a directive exists for the patient, but an actual copy is not included with this document. The data comes from all [place] facilities. Date Advance Directives Provider Source Feb 05, 2023 ADVANCE DIRECTIVE DISCUSSION GUSTAVO ABAD [facility] Encounter Notes: All associated encounter notes This section contains the clinical notes associated to the Encounter. Date/Time Encounter Note(s) Provider Source Feb 05, 2023 03:31 PM ADVANCE DIRECTIVE DISCUSSION: LOCAL TITLE: ADVANCE DIRECTIVE DISCUSSION STANDARD TITLE: ADVANCE DIRECTIVE DISCUSSION DATE OF NOTE: FEB 05, 2023@15:31 ENTRY DATE: FEB 05, 2023@15:31:11 AUTHOR: MAMADOU ABAD EXP COSIGNER: URGENCY: STATUS: COMPLETED Advance Directive (AD) Comments: AD packet sent and education provided. contemplating completing and advised to mail or bring in a copy if chooses to fill out. /el/ MAMADOU ABAD Production Assembly Supervisor Signed: 02/05/2023 15:32 MAMADOU ABAD [facility] Feb 05, 2023 02:55 PM SPINAL CORD INJURY NOTE: LOCAL TITLE: SCI/D SOCIAL WORK ASSESSMENT STANDARD TITLE: SPINAL CORD INJURY NOTE DATE OF NOTE: FEB 05, 2023@14:55 ENTRY DATE: FEB 05, 2023@14:55:31 AUTHOR: MAMADOU ABAD EXP COSIGNER: URGENCY: STATUS: COMPLETED SCI/D SOCIAL WORK ASSESSMENT Has ADDENDA Spinal Cord Injury/Disorder (SCID) Social Work Assessment Today's Date: FEB 05, 2023 Date of assessment: Jan Eligibility Status: PRIMARY ELIGIBILTY CODE - SC LESS THAN 50% Address: [address] [place], [place] [address] Telephone number: Emergency contact: WADE DEGROOT Emergency contact phone: [phone] Relationship to : Spouse 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 Britney Philip and [facility] in [place] Current living situation is described as (type of housing, accessibility, issues, etc.): [place] lives with his spouse-Wade in a rambler style home with basement attached 2 car garage with wooden ramp as his primary entrance. Front door also has a ramp. Main bedroom and bathroom are on the main floor. Social Supports: Jeff and Wade are both retired. They have two adult children, four grandchildren, and five great grandchildren. SonIlya lives in [place] and daughterHernando lives in [place]. [place]'s hobbies, interests, and daily activities: He enjoys putzing around in the garage. 's coping strategies: Enjoys spending time with his family. He takes each day one day at a time. Mandaen preference? Not addressed Spiritual preferences/practices? Not addressed 's strengths described as: Not addressed Activities of daily living and mobility: Bathing: PATCH DRILLER/spouse Shopping: spouse Dressing: PATCH DRILLER/spouse Toileting: PATCH DRILLER/spouse Finances: spouse Transfers: Slide board for all transfers Mobility: pwc Driving? 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 Yes Bladder care: Neurogenic bladder Bowel care: Neurogenic bowel; s/p colostomy The receives personal assistance on a REGULAR BASIS from (identify home health attendant(s), family member(s), volunteer organization, volunteer organization, professional agency, etc.) for the following care needs (specify care/assistance provided): YesVillage Caregiving MWF assist with showers and dressing Is payment provided for these services and by whom (insurance, personal income, VA, Other): VA Does have a backup personal assistance plan? Yes Rashaun or Cirilo Does identify any additional needs or potential problems with present care plan? No Need referral for bowel/bladder program? No Need education and resources on attendant management? No Monthly income: Employment: no Alf: half-way and state half-way VA Pension: no VA Service Connected (SC) Compensation: SERVICE CONNECTED % - 10 Social Security: yes Social Security Disability: no Medicare and other health insurance: MEDICARE (WNR); MEDICARE (WNR) Category 4: No Financial concerns: and spouse deny financial concerns. Legal concerns: and spouse deny legal concerns. Service Organizations and Power of Blister Packing Machine Tender for VA benefits: Paralyzed Veterans of Tete (PVA): Has had communication in the past Does PVA have Power of Blister Packing Machine Tender (POA)? 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 Psychological/psychiatric history: Anxiety and Depression. Duloxitine 60mg twice daily. Lorazepam 0.5mg twice daily & 2 tabs at bedtime Present/historical suicide attempt/ideation? Denies Present/historical homicide attempt/ideation? 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 Current interest in vocational rehabilitation? No Current interest in peer counselor or mentee? (inpatient only) Not applicable Community and VA resources: Transportation: Accessible [employer] that he drives. [facility] transporation information provided per request. Community Adult Day Health Care (CADHC): Educated, but not desired. Snf Placement (NHP): Educated, but not desired. Public Health Nurse (PHN)/Home Health Aide (PATCH DRILLER)/Homemaker (HMKR): Currently utilizing [facility]. Lifeline: Not addressed Meals on Wheels (MOW)/Congregate Meals: Not addressed Medical Assistance (MA)/Waiver: Not addressed Medicare (A/B/AB): Part A & B Other (specify): None VA benefits: SC increase discussed Respite: Educated Does the patient have an Advance Directive: No Patient received information on Advance Directive: Yes Does the patient wish to initiate or make changes to an Advance Directive: Yes, notified Production Assembly Supervisor AD packet sent Action items: 1) Is the caregiver and/or interested in VA respite care services? No 2) Has been screened for Aid and Attendance? No 3) Is co-payment required? Home Care: No Inpatient stay: No Hydroelectric Machinery Mechanic Helper Care: Yes 4) was given a Go Bag: No, If no reason why: telehealth annual 5) Emergency preparedness reviewed: No Overall assessment of 's needs and adjustment related to Spinal Cord Injury/Dysfunction: Jeff notes things are going well overall. Jeff and Wade appreciative of the assistance from [facility] and no issues or concerns identified. [place]'s goals: Review and complete AD. Deputy Sheriff K9 Handler provided education on Advance Directive and sent blank copy for Issac to complete. Assessment/plan: Deputy Sheriff K9 Handler met with and spouse-Wade for SW portion of annual evaluation. SW provided [facility] and [place] with [facility] contact information for interest in possible service connection increase. Jeff and Wade aware they have not yet completed AD and open to the idea of ticket writer sending a blank copy. SW spent time reviewing AD and answering questions. SW highlighted that witnesses to AD could not be listed health care agents. SW provided SCI/D address in case choosing to complete and return. SW provided [facility] transportation phone number as sometimes has troubles getting to appointments. Jeff has an accessible [employer] Caravan he can drive, but Jeff and Wade do not like to drive in the [facility]. No other needs identified at this time. /el/ MAMADOU ABAD Production Assembly Supervisor Signed: 02/05/2023 15:31 02/06/2023 ADDENDUM STATUS: COMPLETED is 10% SC and Category 3. SHAYNA discussed medication co-pays with Jeff and Wade and inquired if they were interested in submitting for Catastrophic Disability consideration. At this time, uses his Medicare and insurance to obtain medications through [facility] in [place]. Jeff/Wade would like to stick with this process at this time, but appreciative of the information. They do have co-pays with Medicare/ but do not feel it is a hardship at this time. /el/ MAMADOU Miranda. JENNIFFER Production Assembly Supervisor Signed: 02/06/2023 10:14 MAMADOU ABAD [facility]
--- OUTSIDE RECORDS SUMMARY | 2023-11-18 12:43 | XMS_ITS | Encounter Summary ---
Author Name Department of Vetera ns Affairs Organization Department of Vetera ns Affairs Address [address] [place] [address] Support Name Relationship Address Phone WADE DEGROOT Next of Kin [address] [address] WADE DEGROOT Emergency Contact [address] [address] CHANTEL DEGROOT Next of Kin [place] JIM DENNISON Emergency Contact VET VERBAL CON SENT FOR TELEH [facility] [place] Insurance Providers: All historical and current Section [...] PART B Jul 12, 2004 PART B [id number] [facility] [phone] Kasie DEGROOT RED PATIENT MEDICARE (WNR) MEDICARE (M) PART A Oct 11, 2002 PART A [id number] [phone] Kasie DEGROOT RED PATIENT Selected Encounter This section includes the information on record at [place] for the Encounter. Date/Time Encounter Type Encounter Description Reason Provider Source Feb 05, 2023 02:30 PM MEDICAL NUTRITION INDIV IN SCI TELEHEALTH VIRTUAL ICD-10-CM Z71.3 Dietary counseling and surveillance JOURDAN ARCHER Encounter Template Text not used by [place] Assessments - Encounter Diagnoses This section includes the primary and secondary diagnoses documented for the Encounter. Date/Time Primary/Secondary Diagnosis Diagnosis Name Provider Source Feb 05, 2023 02:30 PM PRIMARY Dietary counseling and surveillance JOURDAN ARCHER [facility] Feb 05, 2023 02:30 PM SECONDARY Body mass index [BMI] 33.0-33.9, adult JOURDAN ARCHER [facility] Feb 05, 2023 02:30 PM SECONDARY Obesity, unspecified [facility] Feb 05, 2023 02:30 PM SECONDARY Paraplegia, unspecified [facility] Plan of Treatment: Future Appointments (+ 6 months) and Future Tests (+/- 45 days) The Plan of Treatment section includes future care activities for the patient from all [facility]. This section includes future appointments and future orders which are active, pending or scheduled. Future Appointments This section includes appointments that were scheduled to occur 6 months from the date of the Encounter, up to a maximum of 20 appointments. The data comes from all [facility] facilities. Appointment Date/Time Appointment Type Appointme nt Facility Name Feb 08, 2023 02:00 PM AMBULATORY - REHAB MEDICIN E [facility] Feb 13, 2023 11:00 AM AMBULATORY - REHAB MEDICIN [facility] Feb 13, 2023 01:00 PM AMBULATORY - REHAB MEDICIN E [facility] Jun 10, 2023 01:00 PM AMBULATORY - REHAB MEDICIN E [facility] Jun 13, 2023 07:00 AM AMBULATORY - NONE [facility] Lab Results: +/- 30 days [...] Range Comment Feb 13, 2023 11:05 AM [facility] CYSTATIN C WITH EGFR Specimen Type: PLASMA No comment entered. Ordering Provider: ISAIAH BOWMAN Report Released Date/Time: Feb 05, 2023 03:10 PM Reporting Lab: [facility] [id number] Performing Lab: [facility] [id number] CYSTATIN C 1.27 H 0.51-1.05 CYST C EGFR(CKD-EPI ) 53 L >60 Feb 13, 2023 11:05 AM [facility] BASIC METABOLIC PANEL+MG Specimen Type: PLASMA No comment entered. Ordering Provider: ISAIAH BOWMAN Report Released Date/Time: Feb 05, 2023 03:10 PM Reporting Lab: [facility] [id number] Performing Lab: [facility] [id number] CREATININE 0.7 0.7-1.2 UREA NITROGEN 15 8-26 [...] 03:39 PM 225 lb 33 [place] [facility] Advance Directives: All historical and current [...] 05, 2023 ADVANCE DIRECTIVE DISCUSSION GUSTAVO ABAD [facility] Encounter Notes: All associated encounter notes This section contains the clinical notes associated to the Encounter. Date/Time Encounter Note(s) Provider Source Feb 05, 2023 02:32 PM NUTRITION EDUCATIO N NOTE: LOCAL TITLE: EDUCATION NUTRITION STANDARD TITLE: NUTRITION EDUCATION NOTE DATE OF NOTE: FEB 05, 2023@14:32 ENTRY DATE: FEB 05, 2023@14:32:32 AUTHOR: JOURDAN ARCHER COSIGNER: URGENCY: STATUS: COMPLETED NUTRITION EDUCATION OUTPATIENT Initial, [facility]VC Appointment Time spent: 30 minutes Reason for visit: SCI/D annual Patient verbalizes their consent to use Telemedicine communication for nutrition visits. ASSESSMENT: Height: 69 in [175.3 cm] (05/28/2022 14:06) Weight:225 at ER on Saturday Measurement DT WEIGHT LB(KG)[BMI] 05/28/2022 14:06 240(108.86)[36*] BMI: 33 Weight change: vet reports 05/28 was likely inaccurate, was weighed on Saturday at ER. [place] Body Weight: 152 adjusted for para, adjusted for obesity 170# Pertinent Past Medical History: COPD, HTN, anemia, abnormal LFTs, chronic pain syndrome, hyponatremia, HLD, neurogenic bowel, anxiety, colostomy, long-term current use of anticoagulant, Vit D def, paraplegia Nutrition Related Medications: vit D, bupropion, famotidine, furosemide, MOM, others reviewed EDUCATION SCREENING PARTICIPANTS: Patient, Family/significant other BARRIERS/SPECIAL NEEDS: no barriers identified READINESS TO LEARN: no barriers Patient subjective statements: Vet and present for video visit today.Jeff would like to lose weight. He was in the ER on Saturday and weight was 225#. He would like to weigh 190-195# and lose his belly fat. He thinks documented weight from May was him guessing his weight and was not accurate. He has not weight himself in a very long time. His shares they do not eat very healthfully overall. He is now diet controlled for his blood sugars and morning FS are never over 110. They asked if a program such as Nutrisystem would be a good idea. Denies chewing or swallowing difficulty Diet Recall Meal 1: oatmeal plus Ensure HP Meal 2: Ensure HP and Atkins bar OR fast food (burger/chicken sandwich with fries) Meal 3: If eats larger meal for lunch will have the Ensure HP and Atkins bar for dinner, if not will eat at home- Meatloaf and potatoes OR beef stroganoff with noodles OR sloppy joes etc Snack: occasional ice cream but not a big snacker Fluid intake: water or flavored water Meal preparation: Dining out: 3-4 times per week Food Allergies: None Problems related to food security: denies but they are interested in learning about meal delivery options in their area to help decrease frequency of eating out. Activity level: limited Skin condition: intact Malnutrition Assessment (Per AND/ASPEN Consensus Statement, 2012) Dietitian does not suspect malnutrition at this time, therefore, physical assessment not conducted SCI Annual questions: Patient identifies problems with the following: Bowel management: reports regular BMs when he takes MOM in the morning Obesity/desire for weight loss: would like to lose weight. Pertinent lab results: HEMOGLOBIN A1C 5.8 (05/28/22) Estimated nutrient needs based on adjusted body weight 77.3kg 9214-9319 calories/day 20-25 kcal/kg 62-77 grams protein/day .8-1 g/kg 1900 ml fluids/day 1ml kcal NUTRITION DIAGNOSIS: Obesity related to excessive energy intake and limited mobilty as evidenced by diet recall (frequently eating out high calorie items) and BMI 33 INTERVENTION: Provided nutrition education/counseling: Supportive conversation around realistic gradual weight loss. Recommending monitoring weight and not over restricting but reducing frequency of calorie dense items such as beef and fried foods. Encouraged increase in vegetables and fruit as an alternative to starchy vegetables. Education provided using: Handouts:sample meal plan, MOW resources in their area, tips for eating out Discussion PARTICIPANT(S) RESPONSE (OUTCOME): Able to communicate or demonstrate understanding with no further questions. MONITORING/EVALUATION: Patient's nutrition/activity related goals: Goal 1 - Will make healthier choices when eating out (avoid fried foods most of the time) FOLLOW UP: Follow up appointment will be scheduled: SCID annual visit /el/ JOURDAN ARCHER Registered Dietitia Signed: 02/05/2023 15:47 JOURDAN ARCHER [facility]
--- OUTSIDE RECORDS SUMMARY | 2023-11-18 12:43 | XMS_ITS | Encounter Summary ---
Author Name Department of Vetera Affairs Organization Department of Vetera Affairs Address [address] [place] [address] Support Name Relationship Address Phone WADE DEGROOT Next of Kin [address] [place] [address] WADE DEGROOT Emergency Contact [address] [place] [address] CHANTEL DEGROOT Next of Kin [address] JIM DENNISON Emergency Contact VET VERBAL CON SENT FOR [facility] [place] Insurance Providers: All historical and current Section [...] PART B Jul 12, 2004 PART B [id number] [phone] Kasie DEGROOT RED PATIENT MEDICARE (WNR) MEDICARE (M) PART A Oct 11, 2002 PART A [id number] [phone] Kasie DEGROOT RED PATIENT Selected Encounter This section includes the information on record at [place] for the Encounter. Date/Time Encounter Type Encounter Description Reason Pro vider Source Feb 05, 2023 12:00 AM Outpatient Encounter EVENT (HISTORICAL) IHE Encounter Template Text not used by [...] 20 appointments. The data comes from all [facility]. Appointment Date/Time Appointment Type Appointme nt Facility Name Feb 08, 2023 02:00 PM AMBULATORY - REHAB MEDICIN E [facility] Feb 13, 2023 11:00 AM AMBULATORY - REHAB MEDICIN E [facility] Feb 13, 2023 01:00 PM AMBULATORY - REHAB MEDICIN E [facility] Jun 10, 2023 01:00 PM AMBULATORY - REHAB MEDICIN E [facility] Jun 13, 2023 07:00 AM [facility] Lab Results: +/- 30 days of the [...] Range Comment Feb 13, 2023 11:05 AM [facility] CYSTATIN C WITH EGFR Specimen Type: PLASMA No comment entered. Ordering Provider: ISAIAH BOWMAN Report Released Date/Time: Feb 05, 2023 03:10 PM Reporting Lab: [facility] [id number] Performing Lab: [facility] [id number] CYSTATIN C 1.27 H 0.51-1.05 CYST C EGFR(CKD-EPI ) 53 L >60 Feb 13, 2023 11:05 AM [facility] BASIC METABOLIC PANEL+MG Specimen Type: PLASMA No comment entered. Ordering Provider: ISAIAH BOWMAN Report Released Date/Time: Feb 05, 2023 03:10 PM Reporting Lab: [facility] [id number] Performing Lab: [facility] [address] CREATININE 0.7 0.7-1.2 UREA NITROGEN 15 8-26 [...] 2023 03:39 PM 225 lb 33 [place] [facility] Advance Directives: All historical and current Section Date Range: From patient's date of to the date document was created. This section includes ALL of a patient's completed or amended [place] Advance and Rescinded Directives. The entries below indicate that a directive exists for the patient, but an actual copy is not included with this document. The data comes from all [place] facilities. Date Advance Directives Provider Source Feb 05, 2023 ADVANCE DIRECTIVE DISCUSSION GUSTAVO ABAD [facility]
--- OUTSIDE RECORDS SUMMARY | 2023-11-18 12:43 | XMS_ITS | Encounter Summary ---
Author Name Department of Vetera ns Affairs Organization Department of Veter[facility] Affairs Address [address] [place] [address] Support Name Relationship Address Phone WADE CULLEN Next of Kin [address] [place] [address] WADE CULLEN Emergency Contact [address] [place] [address] CHANTEL CULLEN Next of Kin [place] [address] JIM DENNISON Emergency Contact [facility] [employer] CON SENT FOR TELEH [place] [address] Insurance Providers: All historical and current Section [...] PART B Jul 12, 2004 PART B [id number] [facility] [phone] Kasie CULLEN RED PATIENT MEDICARE (WNR) MEDICARE (M) PART A Oct 11, 2002 PART A [id number] [phone] Kasie CULLEN RED PATIENT Selected Encounter This section includes the information on record at [place] for the Encounter. Date/Time Encounter Type Encounter Description Reason Provider Source Feb 08, 2023 02:00 PM ENTEROSTOMAL THERAPY BY A RE [facility] ICD-10-CM Z43.3 Encounter for attention to colostomy SPENSER YOON Encounter Template Text not used by [facility] Assessments - Encounter Diagnoses This section includes the primary and secondary diagnoses documented for the Encounter. Date/Time Primary/Secondary Diagnosis Diagnosis Name Provider Source Feb 08, 2023 02:00 PM PRIMARY Encounter for attention to colostomy SPENSER YOON [facility] Plan of Treatment: Future Appointments (+ 6 months) and Future Tests (+/- 45 days) The Plan of Treatment section includes future care activities for the patient [facility] [place] [facility] This section includes future appointments and future orders which are active, pending or scheduled. Future Appointments This section includes appointments that were scheduled to occur 6 months from the date of the Encounter, up to a maximum of 20 appointments. The data comes from all [place] treatment facilities. Appointment Date/Time Appointment Type Appointme nt Facility Name Feb 13, 2023 11:00 AM AMBULATORY - REHAB MEDICIN E [facility] Feb 13, 2023 01:00 PM AMBULATORY - REHAB MEDICIN [facility] Jun 10, 2023 01:00 PM AMBULATORY - REHAB MEDICIN [facility] Jun 13, 2023 07:00 AM AMBULATORY - NONE [facility] Lab Results: +/- 30 days of [...] Range Comment Feb 13, 2023 11:05 AM [facility] CYSTATIN C WITH EGFR Specimen Type: PLASMA No comment entered. Ordering Provider: ISAIAH BOWMAN Report Released Date/Time: Feb 05, 2023 03:10 PM Reporting Lab: [facility] [id number] Performing Lab: [facility] [id number] CYSTATIN C 1.27 H 0.51-1.05 CYST C EGFR(CKD-EPI ) 53 L >60 Feb 13, 2023 11:05 AM [facility] BASIC METABOLIC PANEL+MG Specimen Type: PLASMA No comment entered. Ordering Provider: ISAIAH BOWMAN Report Released Date/Time: Feb 05, 2023 03:10 PM Reporting Lab: [facility] [id number] Performing Lab: [facility] [address] CREATININE 0.7 0.7-1.2 UREA NITROGEN 15 8-26 [...] 05, 2023 ADVANCE DIRECTIVE DISCUSSION GUSTAVO ABAD [facility] Encounter Notes: All associated encounter notes This section contains the clinical notes associated to the Encounter. Date/Time Encounter Note(s) Provider Source Feb 08, 2023 02:19 PM WOUND CARE CONSULT : LOCAL TITLE: WOC NURSE CONSULT STANDARD TITLE: WOUND CARE CONSULT DATE OF NOTE: FEB 08, 2023@14:19 ENTRY DATE: FEB 08, 2023@14:19:46 AUTHOR: SPENSER YOON EXP COSIGNER: URGENCY: STATUS: COMPLETED WOUND OSTOMY CONTINENCE (WOC) NURSING ASSESSMENT REASON FOR CONSULT: Date of SCI/D annual evaluation: Jan Comments: Supplies are provided by [employer] (online) and paid by Medicare. HISTORY OF PRESENT ILLNESS: Mr. 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 dysreflexia (SCT 689739864) History of pressure injury (SCT 92454032Xrlurkuh liver function (SCT 88441048) History of Deep Vein Thrombosis (SCT 161Tinnitus (SCT 73142263) Hearing Loss (SCT 29937515) Long-term current use of anticoagulant ([facility] 215814091) Osteoporosis ([facility] 50316141) Vitamin D Deficiency ([facility] 47267168) Hyperlipidemia ([facility] 94840448) Neurogenic Bladder ([facility] 946731618) Neurogenic bowel ([facility] 557293706) Continuous opioid dependence ([facility] 852897970) Anxiety ([facility] 62634427) Suprapubic urinary catheter in situ ([facility] 202004983) Colostomy present ([facility] 467868913) Paraplegia ([facility] 02579214) ALLERGIES/ADR: AMOXICILLIN (May 28, 2022) MORPHINE (May 28, 2022) SULFA DRUGS (May 28, 2022) METOLAZONE (May 28, 2022) PIPERACILLIN (May 28, 2022) TAZOBACTAM SODIUM (May 28, 2022) LABS: Collection DT Specimen Test Name Result Units Ref Range 10/08/2022 14:18 SERUM PRE-ALBUMIN 28.4 mg/dL 14.0 - 45.0 ALBUMIN 4.2 (10/08/22) HEMOGLOBIN A1C 5.8 (05/28/22) HGB 14.7 (10/08/22) ASSESSMENT: Ayana was seen on [facility] and was accompanied by his spouse. Acra was seen for his annual visit. - per : OSTOMY ASSESSMENT - the colostomy is changed every 4-5 days - he uses a cut-to-fit 2-piece from [employer] ([employer] [place]) - has a hernia on the left side of the ostomy, it is unclear if the hernia reduces. Acra was not interested in receiving a hernia belt. - asked question about customer services with mattresses. Acra is deciding to stick with the same [employer] for his mattress. COORDINATION OF CARE Current Treatment: Acra will continue to receive his supplies through Medicare. Next step in care: continue to monitor hernia Education: Patient Education of Treatment Plan: Patient indicates readiness to learn, verbalizes understanding, agreement and satisfaction with the treatment plan. Denies further questions. Supplies: no supplies needed Follow-up: [facility] Nursing will continue to follow /el/ SPENSER YOON HAT BINDER Signed: 02/08/2023 14:46 SPENSER YOON [facility]
--- OUTSIDE RECORDS SUMMARY | 2023-11-18 12:43 | XMS_ITS | Encounter Summary ---
Author Name Department of Vetera Affairs Organization Department of Vetera ns Affairs Address [address] [place] [address] Support Name Relationship Address Phone WADE CULLEN Next of Kin [address] [place] [address] WADE CULLEN Emergency Contact [address] [facility] [address] [address] CHANTEL CULLEN Next of Robel [facility] JIM DENNISON Emergency Contact [employer] CON SENT FOR [place] Insurance Providers: All historical and current [...] PART B Jul 12, 2004 PART B [id number] [phone] Kasie CULLEN RED PATIENT MEDICARE (WNR) MEDICARE (M) PART A Oct 11, 2002 PART A [id number] [phone] Kasie CULLEN RED PATIENT Selected Encounter This section includes the [place] for the Encounter. Date/Time Encounter Type Encounter Description Reason Provider Source Feb 13, 2023 11:00 AM OFFICE O/P EST HI 40-54 MIN SPINAL CORD INJURY ICD-10-CM G82.20 Paraplegia, unspecified ISAIAH BOWMAN Encounter Template Text not used by [place] Assessments - Encounter Diagnoses This section includes the primary and secondary diagnoses documented for the Encounter. Date/Time Primary/Secondary Diagnosis Diagnosis Name Provider Source Feb 13, 2023 03:15 PM PRIMARY Paraplegia, unspecified ISAIAH BOWMAN [facility] Feb 13, 2023 03:15 PM SECONDARY Neuromuscular dysfunction of bladder, unspecified ISAIAH BOWMAN [facility] Feb 13, 2023 03:15 PM SECONDARY Other muscle spasm ISAIAH BOWMAN [facility] Feb 13, 2023 03:15 PM SECONDARY Presence of urogenital implants ISAIAH BOWMAN [facility] Plan of Treatment: Future Appointments (+ 6 months) and Future Tests (+/- 45 days) The Plan of Treatment section includes future care activities for [facility] [place] [facility] This section includes future appointments and future orders which are active, pending or scheduled. Future Appointments This section includes appointments that were scheduled to occur 6 months from the date of the Encounter, up to a maximum of 20 appointments. The data comes from all [place] treatment facilities. Appointment Date/Time Appointment Type Appointme nt Facility Name Jun 10, 2023 01:00 PM AMBULATORY - REHAB MEDICIN E [facility] Jun 13, 2023 07:00 AM AMBULATORY - NONE [facility] Lab Results: +/- 30 days [...] Range Comment Feb 13, 2023 11:05 AM [facility] BASIC METABOLIC PANEL+MG Specimen Type: PLASMA No comment entered. Ordering Provider: ISAIAH BOWMAN Report Released Date/Time: Feb 05, 2023 03:10 PM Reporting Lab: [facility] [id number] Performing Lab: [facility] [address] CREATININE 0.7 0.7-1.2 UREA NITROGEN 15 8-26 GLUCOSE 140 H 70-100 SODIUM 135 L 136-145 POTASSIUM 4.0 3.5-5.1 CHLORIDE 99 98-107 CO2 29 22-29 CALCIUM 9.2 8.4-10.2 MAGNESIUM 2.0 1.6-2.6 ANION GAP 7 5-15 CREAT EGFR(CKD-EPI ) >90 >60 Feb 13, 2023 11:05 AM [facility] CYSTATIN C WITH EGFR Specimen Type: PLASMA No comment entered. Ordering Provider: ISAIAH BOWMAN Report Released Date/Time: Feb 05, 2023 03:10 PM Reporting Lab: [facility] [address] Performing Lab: [facility] [address] CYSTATIN C 1.27 H 0.51-1.05 CYST C EGFR(CKD-EPI ) 53 L >60 Vital Signs: All taken on the encounter date This section contains inpatient and outpatient Vital Signs collected on the date of the Encounter. Date/Time Temperature Pulse Blood Pressure Respiratory Rate SP02 Pain Height Weight Body Mass Index Source Feb 13, 2023 10:58 AM 96.2 F 86 /min 103/66 mm[Hg] 16 /min 98 % 4 [place] [facility] Advance Directives: All historical and current Section Date Range: From patient's date of to the date document was created. This section includes ALL of a patient's completed or amended [place] Advance and Rescinded Directives. The entries below indicate that a directive exists for the patient, but an actual copy is not included with this document. The data comes from all [place] facilities. Date Advance Directives Provider Source Feb 05, 2023 ADVANCE DIRECTIVE DISCUSSION GUSTAVO ABAD [facility] Encounter Notes: All associated encounter notes This section contains the clinical notes associated to the Encounter. Date/Time Encounter Note(s) Provider Source Feb 13, 2023 01:02 PM SPINAL CORD INJURY OUTPATIENT NOTE: LOCAL TITLE: SCI/D CLINIC NOTE STANDARD TITLE: SPINAL CORD INJURY OUTPATIENT NOTE DATE OF NOTE: FEB 13, 2023@13:02 ENTRY DATE: FEB 13, 2023@13:02:39 AUTHOR: ISAIAH BOWMAN EXP COSIGNER: URGENCY: STATUS: COMPLETED SCI/D CLINIC VISIT CC: f/u spasticity HPI: Mr. CULLEN is a 77 yo M with incomplete paraplegia s/p ependymoma resection who presents to clinic today for follow up of tone after recent AE. Information is obtained from the patient and from chart review. Last seen in SCI clinic by me on 02/05/23. Issues addressed at that time include: # Incomplete paraplegia: Medical management as below [...] in 1 year; RTC for in-person exam (GINI and tone) on 02/13 incoordination w/ clinic appt as above Since that time, Mr. CULLEN and his report he was prescribed nitrofurantoin and vitamin C for UTI based on Ucx which demonstrated enterococcus and proteus (unclear sensitivities), just started this yesterday. Regarding tone, they tone he is currently at his baseline. Discussed ITB pump hx in more detail; notes that this was in place for several years and were generally happy w/ this, but was explanted after being dx w/ bacterial meningitis in post-op period after cervical spine surgery; no further records available for review today. No changes to tone, no fevers/chills/malaise in the last week. ROS: as above PMH: Active problems - Computerized Problem List is the source for the followin. Dementia 2. COPD - Chronic Obstructive Pulmonary Disease ([facility] 07270700) 3. Chronic Pain Syndrome ([facility] 899067759) 4. HTN - Hypertension ([facility] 48821084) 5. Hyponatremia 6. Anemia ([facility] 506462495) 7. Supraventricular tachycardia 8. Diabetes Mellitus Type 2 ([facility] 00683493) 9. Constipation ([facility] 41410449) 10. 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 History of pressure injury 14. Abnormal liver function 15. History of Deep Vein Thrombosis ([facility] 206756869) 16. Tinnitus ([facility] 63332065) 17. Hearing Loss ([facility] 70541591) 18. Long-term current use of anticoagulant 19. Osteoporosis ([facility] 79687460) 20. Vitamin D Deficiency ([facility] 5966937) 21. Hyperlipidemia ([facility] 06096325) 22. Neurogenic Bladder ([facility] 504118957) 23. Neurogenic bowel 24. Continuous opioid dependence 25. Anxiety ([facility] 87705834) 26. Suprapubic urinary catheter in situ 27. Colostomy present 28. Paraplegia Allergies: AMOXICILLIN (May 28, 2022) MORPHINE (May 28, 2022) SULFA DRUGS (May 28, 2022) METOLAZONE (May 28, 2022) PIPERACILLIN (May 28, 2022) TAZOBACTAM SODIUM (May 28, 2022) Active Outpatient Medications (including Supplies): Active Outpatient Medications Status 1) BAG,LEG CONVEEN #7510 USE 1 TOPICALLY DIRECTED ACTIVE 2) UNDERPAD,BED ULTRASORB [id number] M#3136 USE 1 PAD ACTIVE TOPICALLY NEEDED 3) URINARY DRAINAGE BAG BARD #[id number] USE BAG TOPICALLY ACTIVE DIRECTED Active Non-VA [...] MOUTH ALL OTHER DAYS 23 Total Medications Exam: Temperature: 96.2 F [35.7 C] (02/13/2023 10:58) Pulse: 86 (02/13/2023 10:58) Respirations: 16 (02/13/2023 10:58) Blood Pressure: 103/66 (02/13/2023 10:58) Pain: 4 (02/13/2023 10:58) General: Pt alert and cooperative, in NAD Respiratory: breathing nonlabored, no cough Peripheral vascular: fair distal extremity warmth; compression socks in place Skin: No visible lesions or rash on limited exam Mobility: PWC, ceiling lift for transfers Neurology: significant tone throughout BLE, sustained clonus w/ minimal ankle ROM and hip external rotation; MAS generally 3-4/4 throughout though suspicion for contracture contributing alina HF/KF/PF; GINI exam deferred today given significant tone/clonus on exam, presumed stable LABS/IMAGING: Today's Labs: GLUCOSE: 140 H UREA NITROGEN: 15 CREATININE: 0.7 SODIUM: 135 L POTASSIUM: 4.0 CHLORIDE: 99 CO2: 29 CALCIUM: 9.2 MAGNESIUM: 2.0 ANION GAP: 7 CYSTATIN C: 1.27 H CREATININE EGFR (CKD-EPI): >90 CYSTATIN C EGFR: 53 L ASSESSMENT: Mr. CULLEN is a 77 yo M with incomplete paraplegia s/p ependymoma resection who presents to clinic today for follow up of tone after recent AE. PLAN: # Incomplete paraplegia: Has seating clinic appt later today, will keep this F/u as warranted # Bladder: Discussed role of abx in treatment of UTI, possiblity of further imaging given concern for stones as discussed previously As he recently started abx, will defer repeat UA for now but will order this for collection at [facility] in 3 weeks, though can collect if seen in [place] for follow up in the next month or so # Spasticity: Discussed variety of treatment options available to manage tone, alina w/ sustained clonus and concern for contracture as mentioned above. Mr. Cullen is hesitant to pursue ITB pump replacement at this point given his history, which is reasonable, though suspect that treatment options outside of this will be of limited benefit given side effects experienced at higher doses. Will keep current baclofen dose for now, thought could trial tizanidine in the future if requests; would start low and advance slowly given risk/hx of hypotension in the past Will f/u at next visit at their discretion, though they may call to discuss further at any time in the interim FOLLOW UP: RTC as needed pending above, will call to arrange. Total physician [id number] time was 45 minutes, and greater than 50% of this time was spent for counseling and coordination of care. /es/ ISAIAH BOWMAN MD STAFF PHYSICIAN Signed: 02/13/2023 15:15 ISAIAH BOWMAN [facility] Feb 13, 2023 10:58 AM SPINAL CORD INJURY NURSING NOTE: LOCAL TITLE: SCI/D CLINIC NURSE NOTE STANDARD TITLE: SPINAL CORD INJURY NURSING NOTE DATE OF NOTE: FEB 13, 2023@10:58 ENTRY DATE: FEB 13, 2023@10:59:01 AUTHOR: ERICKA ZAMORA COSIGNER: URGENCY: STATUS: COMPLETED Appointment Check-In... TYPE OF VISIT: Appointment Check In Type of appointment: In-person appointment REASON FOR VISIT: F/U appt SCI/D clinic-Dr. Bowman. Spasticity ALLERGIES: AMOXICILLIN (May 28, 2022) MORPHINE (May 28, 2022) SULFA DRUGS (May 28, 2022) METOLAZONE (May 28, 2022) PIPERACILLIN (May 28, 2022) TAZOBACTAM SODIUM (May 28, 2022) VITAL SIGNS: Blood Pressure: 103/66 (02/13/2023 10:58) Pulse: 86 (02/13/2023 10:58) Respiration: 16 (02/13/2023 10:58) Temperature: 96.2 F [35.7 C] (02/13/2023 10:58) Weight: 225 lb [102.06 kg] (02/05/2023 15:39) Height: 69 in [175.3 cm] (05/28/2022 14:06) BMI: 33.3 O2 Sat: 98% (02/13/2023 10:58) Pain: 4 (02/13/2023 10:58) Pain Screening: * Are you having significant pain that you want to talk to your provider about today? Yes Are you having acute/new pain or chronic/old pain? Old (Chronic) (began more than 6 months ago) Patient states their average pain this past week is 4 Patient states the average number on how the chronic pain affects their enjoyment of life the past week is 3 Patient states during the past week the average number on how the pain has interfered with their general activity is 2 Medication Reconciliation Active Outpatient Medications (excluding Supplies): Non-VA Medications Status 1) Non-VA ACETAMINOPHEN 500MG [...] AND 7.5MG ACTIVE MOUTH ALL OTHER DAYS recently seen by non VA provider and given the following for UTI Nitrofurantoin Macro 100mg 1 tab four times daily for five days Vitamin C 500mg 1 tab twice daily INPT MEDICATIONS:NONE Patient unable to communicate/describe medications; No further action taken. /el/ Ericka Zamora LPN [facility] Staff Nurse Signed: 02/13/2023 11:09 ERICKA ZAMORA [facility]
--- OUTSIDE RECORDS SUMMARY | 2023-11-18 12:44 | XMS_ITS | Encounter Summary ---
Author Name Department of Vetera Affairs Organization Department of Vetera Affairs Address [address] [place] [address] Support Name Relationship Address Phone WADE DEGROOT Next of Kin [address] [place] [address] WADE DEGROOT Emergency Contact [address] [place] [address] KTBIMALCHANTEL Next [facility] JIM DENNISON Emergency Contact VET VERBAL CON SENT FOR [facility] [place] Insurance Providers: All historical and current [...] PART B Jul 12, 2004 PART B [id number] [facility] [phone] Kasie DEGROOT RED PATIENT MEDICARE (WNR) MEDICARE (M) PART A Oct 11, 2002 PART A [id number] [phone] Kasie DEGROOT RED PATIENT Selected Encounter This section includes the information on record at [place] for the Encounter. Date/Time Encounter Type Encounter Description Reason Pro vider Source Feb 19, 2023 09:39 AM Outpatient Encounter TELEPHONE SCI [facility] Encounter Template Text not used by [place] Plan of Treatment: Future Appointments (+ 6 months) and Future Tests (+/- 45 days) The Plan of Treatment section includes future care activities for the patient from all [place] treatmentfacilities. This section includes future appointments and [...] 13, 2023 07:00 [facility] Lab Results: +/- 30 days of [...] PM Reporting Lab: [facility] [id number] Performing Lab: [facility] [id number] CYSTATIN C 1.27 H 0.51-1.05 CYST C EGFR(CKD-EPI ) 53 L >60 Feb 13, 2023 11:05 AM [facility] BASIC METABOLIC PANEL+MG Specimen Type: PLASMA No comment entered. Ordering Provider: ISAIAH BOWMAN Report Released Date/Time: Feb 05, 2023 03:10 PM Reporting Lab: [facility] [id number] Performing Lab: [facility] [id number] CREATININE 0.7 0.7-1.2 UREA NITROGEN 15 8-26 [...] Encounter. Date/Time Encounter Note(s) Provider Source Feb 19, 2023 09:39 AM LETTERS: LOCAL TITLE: FOLLOW UP RESULTS LETTER STANDARD TITLE: LETTERS DATE OF NOTE: FEB 19, 2023@09:39 ENTRY DATE: FEB 19, 2023@09:39:23 AUTHOR: EVON ZHONG COSIGNER: URGENCY: STATUS: COMPLETED [facility] [address] [place] [address] Feb JIE DEGROOT [address] [facility] [address] [place]: SCI/D VIRTUAL ANNUAL EVALUATION CHECK OUT The patient was seen for his/her SCI/D health promotion and preventative virtual annual evaluation The following is a nurse check out review of the appointments completed during the annual. Active Outpatient Medications (including Supplies): Active Outpatient Medications Status ========= 1) BAG,LEG CONVEEN #5170 USE 1 TOPICALLY DIRECTED ACTIVE 2) UNDERPAD,BED ULTRASORB [id number] M#3136 USE 1 PAD ACTIVE TOPICALLY NEEDED 3) URINARY DRAINAGE BAG BARD #[id number] USE BAG TOPICALLY ACTIVE DIRECTED Active Non-VA Medications Status ========= 1) Non-VA ACETAMINOPHEN [...] MOUTH ALL OTHER DAYS 23 Total Medications ======= WHOLE HEALTH: Please visit the Whole Health website for resources, videos, and tips for making a personal health plan at https://www.va.gov/WHOLEHEALTH PHYSICAL THERAPY/OCCUPATIONAL THERAPY: Everett Miller It was nice to meet you today. [...] follow up with you in one year. SATHISH PARDO MS, OTR/L OCCUPATIONAL THERAPIST PSYCHOLOGY: It was great to meet with you [...] 1:00-2:00pm You can reach me directly at [phone] if you'd like to set up an appointment. A reminder about emergency resources - Veterans Crisis Line dial 988 then press 1, 911, or local ER - to use if in distress. We will plan to see you at next year's annual evaluation if we don't hear from you sooner. Take care! ~ Dr. Rolly GAMEZ, PhD, STAFF PSYCHOLOGIST WOOL HAT FORMING MACHINE TENDER: Silvia Aguilar, It was nice to meet [...] increasing fruits and vegetables in your day. JOURDAN ARCHER Registered Dietitia SOCIAL WORK: It was nice to meet you both today. I have sent out a blank copy of a Advance Directive (Health Care Directive) for your consideration. If you choose to complete, have two witnesses sign that are not your health care agents. Please bring in or mail a copy to the [facility] for your health care records. Please connect with [place] with the [facility] or your [facility] CVSO for possibly service connection increase. VTS' direct phone number is [phone]. If you have any other questions or concerns, my direct number is [phone]. MAMADOU ABAD [employer] Employee PHARMACY: It was great talking with you and your during your annual visit and going over your medications. I'm glad to hear things are going generally well. We did discuss some recommendations: 1. Ensure the naloxone (narcan) kit you have at home is within date, your pharmacy or the NE can provide you with an updated one [...] if you have any questions or needs! PIPO BARRETT Pharmacist FOLLOW UP RECOMMENDATIONS: -See SCI/D Annual Evaluation Recommendations in this letter. -SCI/D wellness exam in one year. -Follow up with your primary care provider as directed. -If you have questions or concerns, call the SCI/D Clinic at [phone]. -For non-urgent questions, you can send a secure message in [facility] [facility] and a staff member will respond within 3 business days. -If you have an urgent or emergency situation, call 911 or go to the nearest emergency room. VETERANS CRISIS LINE: VETERANS CRISIS CONFIDENTIAL CHAT: [email or web address] VETERANS CRISIS TEXT: [id number] Sincerely, Evon Zhong RN SCI/D [facility] EVON ZHONG REGISTERED NURSE EVON ZHONG [facility]
--- OUTSIDE RECORDS SUMMARY | 2023-11-18 12:44 | XMS_ITS | Encounter Summary ---
Author Name Department of Vetera Affairs Organization Department of Vetera Affairs Address [address] [place] [address] Support Name Relationship Address Phone WADE DEGROOT Next of Kin [address] [place] [address] WADE DEGROOT Emergency Contact [address] [place] [address] CHANTEL DEGROOT Next of Kin [facility] [place] JIM DENNISON Emergency Contact VET VERBAL CON SENT FOR [place], [place] Insurance Providers: All historical and current [...] PART B Jul 12, 2004 PART B [id number] [facility] [phone] Kasie DEGROOT RED PATIENT MEDICARE (WNR) MEDICARE (M) PART A Oct 11, 2002 PART A [id number] [id number] [phone] Kasie DEGROOT RED PATIENT Selected Encounter This section includes the information on record at [place] for the Encounter. Date/Time Encounter Type Encounter Description Reason Pro vider Source May 24, 2023 01:10 PM Outpatient Encounter SPINAL CORD INJURY IHE Encounter Template Text not used by [place] Plan of Treatment: Future Appointments (+ 6 [...] 20 appointments. The data comes from all [place] treatment facilities. Appointment Date/Time Appointment Type Appointme nt Facility Name Jun 10, 2023 01:00 PM AMBULATORY - [facility] Jun 13, 2023 07:00 AM [facility] Advance Directives: All historical and current Section Date Range: From patient's date of to the date document was created. This section includes ALL of a patient's completed or amended [place] Advance and Rescinded Directives. The entries below indicate that a directive exists for the patient, but an actual copy is not included with this document. The data comes from all [facility]. Date Advance Directives Provider Source Feb 05, 2023 ADVANCE DIRECTIVE DISCUSSION GUSTAVO ABAD [facility] Encounter Notes: All associated encounter notes This section contains the clinical notes associated to the Encounter. Date/Time Encounter Note(s) Provider Source May 24, 2023 01:10 PM SOCIAL WORK NOTE: LOCAL TITLE: SHAYNA SOCIAL WORK PROGRESS NOTE STANDARD TITLE: SOCIAL WORK NOTE DATE OF NOTE: MAY 24, 2023@13:10 ENTRY DATE: MAY 24, 2023@13:10:31 AUTHOR: ZULEIMA BETANCOURT COSIGNER: URGENCY: STATUS: COMPLETED SW returned a call to 's , Wade, . She said was offered a hospital bed with an alternating air mattress - she thought it was when he had his annual in January. They didn't want it at the time but would like to have it now. WOCN needs a consult for this. SW will cosign triage nurse to request that a consult be placed. /el/ ZULEIMA BETANCOURT BLEACH MAKER Sr SCI/D Geophysical Prospecting Permit Agent Signed: 05/24/2023 13:18 Receipt Acknowledged By: * AWAITING SIGNATURE * SPENSER YOON * AWAITING SIGNATURE * LIZZ TURCIOS MARY A [facility]
--- OUTSIDE RECORDS SUMMARY | 2023-11-18 12:44 | XMS_ITS | Encounter Summary ---
Author Name Department of Vetera Affairs Organization Department of Vetera ns Affairs Address [address] [place] [address] Support Name Relationship Address Phone WADE DEGROOT Next of Kin [address] [place] [address] WADE DEGROOT Emergency Contact [address] [place] [address] CHANTEL DEGROOT Next of Kin [facility] [place] JIM DENNISON Emergency Contact VET VERBAL CON SENT FOR [place], [place] Insurance Providers: All historical and current [...] PART B Jul 12, 2004 PART B [id number] [facility] [phone] Kasie DEGROOT RED PATIENT MEDICARE (WNR) MEDICARE (M) PART A Oct 11, 2002 PART A [id number] [id number] [phone] Kasie DEGROOT RED PATIENT Selected Encounter This section includes the information on record at [place] for the Encounter. Date/Time Encounter Type Encounter Description Reason Pro vider Source Apr 24, 2023 11:11 AM Outpatient Encounter SPINAL CORD INJURY IHE Encounter Template Text not used by [place] Plan of Treatment: Future Appointments (+ 6 [...] 20 appointments. The data comes from all [place] treatment facilities. Appointment Date/Time Appointment Type Appointme nt Facility Name Jun 10, 2023 01:00 PM AMBULATORY - REHAB MEDIC[facility] E [facility] Jun 13, 2023 07:00 AM [facility] Advance Directives: All historical and current Section Date Range: From patient's date of to the date document was created. This section includes ALL of a patient's completed or amended [place] Advance and Rescinded Directives. The entries below indicate that a directive exists for the patient, but an actual copy is not included with this document. The data comes from all [facility]. Date Advance Directives Provider Source Feb 05, 2023 ADVANCE DIRECTIVE DISCUSSION GUSTAVO ABAD [facility] Encounter Notes: All associated encounter notes This section contains the clinical notes associated to the Encounter. Date/Time Encounter Note(s) Provider Source Apr 24, 2023 11:11 AM REPORT OF CONTACT: LOCAL TITLE: APPOINTMENT SCHEDULING NOTE STANDARD TITLE: REPORT OF CONTACT DATE OF NOTE: APR 24, 2023@11:11 ENTRY DATE: APR 24, 2023@11:11:42 AUTHOR: JAJA JACKSON EXP COSIGNER: URGENCY: STATUS: COMPLETED APPOINTMENT SCHEDULING NOTE Has ADDENDA Attempted to schedule Return to clinic (RTC) Contact attempt made to 1st attempt Telephone Left message on voice mail to call back to this number [phone] If calls back, schedule appt for: 90 min - pwc mods /el/ JAJA PEREZ Medical Suppot Reel Assembler Signed: 04/24/2023 11:12 04/30/2023 ADDENDUM STATUS: COMPLETED 2nd Contact: Sent letter by regular [place] mail to address on file. JIE DEGROOT [address] [place] [address] /el/ JAJA JACKSON ADV Medical Suppot Reel Assembler Signed: 04/30/2023 09:06 JAJA JACKSON [facility]
--- OUTSIDE RECORDS SUMMARY | 2023-11-18 12:44 | XMS_ITS | Encounter Summary ---
Author Name Department of Vetera Affairs Organization Department of Vetera ns Affairs Address [address] [place] [address] Support Name Relationship Address Phone JLJUAN A DE LA FUENTEYN Next of Kin [address] [place] [place] [address] WADE CULLEN Emergency Contact [address] [facility] [place] [address] CHANTEL CULLEN Next of [place] JIM DENNISON Emergency Contact VET VERBAL CON SENT FOR [place], [place] Insurance Providers: All historical and current [...] PART B Jul 12, 2004 PART B [id number] [phone] Kasie CULLEN RED PATIENT MEDICARE (WNR) MEDICARE (M) PART A Oct 11, 2002 PART A [id number] [id number] [phone] Kasie CULLEN RED PATIENT Selected Encounter This section includes the information on record at [place] for the Encounter. Date/Time Encounter Type Encounter Description Reason Provider Source May 28, 2023 01:23 PM OFF/OP EST MARCH X REQ PHY/QHP SPINAL CORD INJURY ICD-10-CM G82.20 Paraplegia, unspecified SPENSER YOON Encounter Template Text not used by [place] Assessments - Encounter Diagnoses This section includes the primary and secondary diagnoses documented for the Encounter. Date/Time Primary/Secondary Diagnosis Diagnosis Name Provider Source May 28, 2023 01:36 PM PRIMARY Paraplegia, unspecified SPENSER YOON [facility] Plan of Treatment: Future Appointments (+ 6 months) and Future Tests (+/- 45 days) The Plan of Treatment section includes future care activities for the patient from all [place] [facility]. This section includes future appointments and future orders which are active, pending or scheduled. Future Appointments This section includes appointments that were scheduled to occur 6 months from the date of the Encounter, up to a maximum of 20 appointments. The data comes from all [place] treatment facilities. Appointment Date/Time Appointment Type Appointme nt Facility Name Jun 10, 2023 01:00 PM AMBULATORY - REHAB MEDICIN E [facility] Jun 13, 2023 07:00 [facility] Advance Directives: All historical and current Section Date Range: From patient's date of to the date document was created. This section includes ALL of a patient's completed or amended [place] Advance and Rescinded Directives. The entries below indicate that a directive exists for the patient, but an actual copy is not included with this document. The data comes from all [facility]. Date Advance Directives Provider Source Feb 05, 2023 ADVANCE DIRECTIVE DISCUSSION GUSTAVO ABAD [facility] Encounter Notes: All associated encounter notes This section contains the clinical notes associated to the Encounter. Date/Time Encounter Note(s) Provider Source May 28, 2023 01:33 PM WOUND CARE CONSULT : LOCAL TITLE: WOC NURSE CONSULT STANDARD TITLE: WOUND CARE CONSULT DATE OF NOTE: MAY 28, 2023@13:33 ENTRY DATE: MAY 28, 2023@13:34:04 AUTHOR: SPENSER YOON EXP COSIGNER: URGENCY: STATUS: COMPLETED WOUND OSTOMY CONTINENCE ([facility]) NURSING ASSESSMENT REASON FOR CONSULT: SCI/D patient mattress/pressure relief surface recommendations Requesting a hospital bed with an alternating air mattress. HISTORY OF PRESENT ILLNESS: Mr. Cullen is a 78 year old male with complete paraplegia CURRENT PROBLEM LIST FROM PAST MEDICAL HISTORY: Dementia (SCT [id number]) COPD - Chronic Obstructive Pulmonary Disease ([facility]CT 62501081) Chronic Pain Syndrome (SCT 572699782) HTN - Hypertension (SCT 88744682) Hyponatremia (SCT 94748479) Anemia (SCT 236387469) Supraventricular tachycardia ([facility] 989278Itxfumdg Mellitus Type 2 ([facility] 65390362) Constipation ([facility] 42164099) Depression ([facility] 32936646) Ependymoma of spinal cord ([facility] 260225024Dvcgtnnai dysreflexia ([facility] 665177317) History of pressure injury ([facility] 77516887Gkvyynvu liver function ([facility] 86944548) History of Deep Vein Thrombosis (SCT 161Tinnitus ([facility] 29806401) Hearing Loss ([facility] 89166073) Long-term current use of anticoagulant ([facility] 359203490) Osteoporosis ([facility] 44706517) Vitamin D Deficiency ([facility] 71627520) Hyperlipidemia ([facility] 32861270) Neurogenic Bladder ([facility] 447074068) Neurogenic bowel ([facility] 329371477) Continuous opioid dependence ([facility] 057496412) Anxiety ([facility] 66472922) Suprapubic urinary catheter in situ ([facility] 276622561) Colostomy present ([facility] 704166086) Paraplegia ([facility] 71347020) Spasticity ([facility] 438652794) ALLERGIES/ADR: AMOXICILLIN (May 28, 2022) MORPHINE (May 28, 2022) SULFA DRUGS (May 28, 2022) METOLAZONE (May 28, 2022) PIPERACILLIN (May 28, 2022) TAZOBACTAM SODIUM (May 28, 2022) LABS: Collection DT Specimen Test Name Result Units Ref Range 10/08/2022 14:18 SERUM PRE-ALBUMIN 28.4 mg/dL 14.0 - 45.0 ALBUMIN 4.2 (10/08/22) HEMOGLOBIN A1C 5.8 (05/28/22) HGB 14.7 (10/08/22) ASSESSMENT: is already in an air mattress, but wanted to switch care over to the [facility] now. [employer] will order the bed from [employer] and an Easy air mattress. COORDINATION OF CARE Current Treatment: standard bed frame from [employer] (Horizon 9.1) order number [id number] and standard size Easy air mattresses from Length 80 and width 35 from [employer]. please have vendor set the blower to Alternating. thanks. José Miguel Romero, Next step in care: the goal is to offload Equipment: ordered the bed frame and mattress Follow-up: [facility] Nursing will continue to follow /es/ SPENSER YOON VP DATA Signed: 05/28/2023 13:36 Receipt Acknowledged By: * AWAITING SIGNATURE * JOSUÉ ZAMORA,SPENSER [facility]
--- OUTSIDE RECORDS SUMMARY | 2023-11-18 12:44 | XMS_ITS | Encounter Summary ---
Author Name [facility] Organization [facility] Address [address] [place] [address] Support Name Relationship Address Phone WADE DEGROOT Next of Kin [address] [place] [address] MIKAYLAWADE Emergency Contact [address] [place] [address] KTBIMAL CHANTEL Next of Kin [address] [place] JIM DENNISON Emergency Contact VET VERBAL CON SENT FOR [facility] [place] Insurance Providers: All historical and current Section [...] PART B Jul 12, 2004 PART B [id number] [phone] Kasie DEGROOT RED PATIENT MEDICARE (WNR) MEDICARE (M) PART A Oct 11, 2002 PART A [id number] [id number] [phone] MIKAYLAF RED PATIENT Selected Encounter This section includes the information on record at [place] for the Encounter. Date/Time Encounter Type Encounter Description Reason Pro vider Source IHE Encounter Template Text not used by [facility] Advance Directives: All historical and current Section Date Range: From patient's date of to the date document was created. This section includes ALL of a patient's completed or amended [place] Advance and Rescinded Directives. The entries below indicate that a directive exists for the patient, but an actual copy is not included with this document. The data comes from all [place] facilities. Date Advance Directives Provider Source Feb 05, 2023 ADVANCE DIRECTIVE DISCUSSION GUSTAVO ABAD [facility]
--- OUTSIDE RECORDS SUMMARY | 2023-11-18 12:44 | XMS_ITS | Encounter Summary ---
Author Name Department of Vetera Affairs Organization Department of Vetera Affairs Address [address] [place] [address] Support Name Relationship Address Phone WADE CULLEN Next of Kin [address] [place] [address] WADE CULLEN Emergency Contact [address] [place] [address] CHANTEL CULLEN [facility] [place] DENN[place] Emergency Contact V[facility] [place]BAL CON SENT FOR [place], [place] Insurance Providers: All historical and current [...] PART B Jul 12, 2004 PART B [id number] [facility] [phone] Kasei CULLEN RED PATIENT MEDICARE (WNR) MEDICARE (M) PART A Oct 11, 2002 PART A [id number] [phone] MIKAYLAF RED PATIENT Selected Encounter This section includes the information on record at [place] for the Encounter. Date/Time Encounter Type Encounter Description Reason Provider Source Jun 10, 2023 01:00 PM WHEELCHAIR MNGMENT TRAINING SPINAL CORD INJURY ICD-10-CM Z73.6 Limitation of activities due to disability LATISHA BUTT Encounter Template Text not used by [facility] Assessments - Encounter Diagnoses This section includes the primary and secondary diagnoses documented for the Encounter. Date/Time Primary/Secondary Diagnosis Diagnosis Name Provider Source Jun 11, 2023 09:07 AM PRIMARY Limitation of activities due to disability LATISHA BUTT [facility] Jun 11, 2023 09:07 AM SECONDARY Paraplegia, unspecified LATISHA BUTT [facility] Plan of Treatment: Future Appointments (+ 6 months) and Future Tests (+/- 45 days) The Plan of Treatment section includes future care activities for the patient from all [place] [facility]. This section includes future appointments and future orders which are active, pending or scheduled. Future Appointments This section includes appointments that were scheduled to occur 6 months from the date of the Encounter, up to a maximum of 20 appointments. The data comes from all [place] treatment facilities. Appointment Date/Time Appointment Type Appointme nt Facility Name Jun 13, 2023 07:00 AM AMBULATORY - NONE [facility] Advance Directives: All historical and current Section Date Range: From patient's date of to the date document was created. This section includes ALL of a patient's completed or amended [place] Advance and Rescinded Directives. The entries below indicate that a directive exists for the patient, but an actual copy is not included with this document. The data comes from all [facility]. Date Advance Directives Provider Source Feb 05, 2023 ADVANCE DIRECTIVE DISCUSSION GUSTAVO ABAD [facility] Encounter Notes: All associated encounter notes This section contains the clinical notes associated to the Encounter. 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 06/10/23: Patient presents to SCI/D wheelchair clinic as a follow up to address some ongoing concerns related to his power wheelchair. He reports that he still feels like the PWC backrest is too narrow which makes him feel cramped in the chair. He would also like for more support underneath his upper legs. Lastly, he feels that the PWC can be a little too 'jumpy' especially when turning. OBJECTIVE: Wheelchair Management: -Equipment: Ticket Hoyl M3 power wheelchair with HP roho cushion and Corpus Ergo Backrest. Sitting Posture -Obliquity: mild left -Rotation: unremarkable -Pelvic Tilt: mod posterior pelvic --> improved to mild w positioning assistance -Scoliosis: mild left thoracolumbar -femur support: ~3 inches between anterior edge of cushion and Shared decision making used to plan for increasing the seat depth by 2 inches (currently set at 20) and seeing if there is a wider re-issue corpus ergo backrest that can be installed. -Patient transferred out of his [facility] via mechanical lift and sling for repairs/modifications Intervention: -Increased the seat depth by 2 inches which set the total seat depth at 22 -Installed the HP roho quadtro cushion on the seat lewis in alignment with the front edge of the seat lewis and secured placement with Velcro. Education provided on proper positioning. -Identified a re-issue corpus ergo backrest with a width of 20 (+2 inches from current backrest) and was able to match the same set at height of 24 inches. Moved the headrest and mounting hardware from the old backrest to the new backrest and installed the entire backrest kit to the [facility] backrest hardware. -Widened the armrests by ~1 on each side to accommodate the new backrest width. -Patient transferred back into the [facility] via mechanical lift and sling for further fitting -Manual cushion inflation check revealed ~1 inch air space between B ITs and the seat lewis. -Adjusted bilateral lateral thigh guides to optimize upper leg support and comfort. -Adjusted bilateral legrests lengths in order to optimize femoral loading on the cushion and full foot contact on the footplates. Following adjustments patient verbalized a significant improvement in comfort compared to the beginning of the session. -Education provided on the use of the speed adjust feature on the controller when navigating tight spaces in order to have a more smooth driving experience. Education was provided on the idea of briana whip and how there can be some unexpected 'jerkiness' when the casters are in the process of getting aligned with the direction of the chairs movement. Also reported that it would not be recommended to further reduce the turn acceleration rate as he may then be unable to generate enough power get move the PWC when the casters are not in- line and he is on a high friction surface. He was rather educated to use the speed adjust features frequently to have the best driving experience and not negatively influence the operation of the PWC. -Driving chair on basic indoor and outdoor [...] further questions. ASSESSMENT: Mr. Cullen is a 78 year old male with complete paraplegia who is returning to sci/d wheelchair clinic for ongoing adjustments to his power wheelchair. Patient presents with impairments in strength, sensation, and activity tolerance which require the need for a mechanical lift for transfers and a power wheelchair for all mobility. Patient's primary concerns addressed during today's session focused on his backrest and seat depth. Installed a wider backrest per pt request and increased his seat depth by 2 to improve pressure distribution and support/stability while sitting upright. Following the modifications to his seating system he endorsed a significant improvement in his comfort compared to the beginning of the session. Re- education provided on the importance of utilizing the speed adjust feature to match the environment with which he is operating his PWC for the smoothest drive experience. All goals met. No questions or concerns [...] in mobility related ADLs. MET. /el/ LATISHA BUTT PT, DPT, NCS, ATP PHYSICAL THERAPIST Signed: 06/11/2023 09:07 LATISHA BUTT [facility]
--- OUTSIDE RECORDS SUMMARY | 2023-11-18 12:44 | XMS_ITS | Encounter Summary ---
Author Name Department of Vetera Affairs Organization Department of Vetera Affairs Address [address] [place] [address] Support Name Relationship Address Phone WADE CULLEN Next of Kin [address] [place] [address] WADE CULLEN Emergency Contact [address] [place] [address] KTBIMALCHANTEL Next of Kin [facility] [place] JIM DENNISON Emergency Contact [place] [place] CON SENT FOR TE[place] Insurance Providers: All historical and current Section [...] PART B Jul 12, 2004 PART B [id number] [phone] Kasie CULLEN RED PATIENT MEDICARE (WNR) MEDICARE (M) PART A Oct 11, 2002 PART A [id number] [id number] [phone] Kasie CULLEN RED PATIENT Selected Encounter This section includes the information on record at [place] for the Encounter. Date/Time Encounter Type Encounter Description Reason Provider Source Apr 23, 2023 01:44 PM HC PRO PHONE CALL 11-20 MIN TELEPHONE SCI ICD-10-CM Z73.6 Limitation of activities due to disability LATISHA BUTT Encounter Template Text not used by [place] Assessments - Encounter Diagnoses This section includes the primary and secondary diagnoses documented for the Encounter. Date/Time Primary/Secondary Diagnosis Diagnosis Name Provider Source Apr 23, 2023 01:44 PM PRIMARY Limitation of activities due to disability LATISHA BUTT [facility] Apr 23, 2023 01:44 PM SECONDARY Paraplegia, unspecified LATISHA BUTT [facility] Plan of Treatment: Future Appointments (+ 6 months) and Future Tests (+/- 45 days) The Plan of Treatment section includes future care activities for the patient [facility] all [place] [facility]. This section includes future appointments [...] 01:00 PM AMBULATORY - REHAB MEDICIN E [facility] Jun 13, 2023 07:00 AM AMBULATORY - NONE [facility] Advance Directives: All historical and current Section Date Range: From patient's date of to the date document was created. This section includes ALL of a patient's completed or amended [place] Advance and Rescinded Directives. The entries below indicate that a directive exists for the patient, but an actual copy is not included with this document. The data comes from all [facility]. Date Advance Directives Provider Source Feb 05, 2023 ADVANCE DIRECTIVE DISCUSSION GUSTAVO ABAD [facility] Encounter Notes: All associated encounter notes This section contains the clinical notes associated to the Encounter. Date/Time Encounter Note(s) Provider Source Apr 23, 2023 01:44 PM REPORT OF CONTACT: LOCAL TITLE: PATIENT CONTACT NOTE STANDARD TITLE: REPORT OF CONTACT DATE OF NOTE: APR 23, 2023@13:44 ENTRY DATE: APR 23, 2023@13:44:13 AUTHOR: LATISHA BUTT EXP COSIGNER: URGENCY: STATUS: COMPLETED Name of : Carl Cullen Name/Relationship of Contact if other than Valentine: n/a Date & Time of Contact: 04/23/23 @ 8030 Type of Contact: Telephone Reason for Contact: Patient indicated the need for further programming changes to his power wheelchair drive controls as he feels like it is too 'jerky' especially when driving through doorways or up his ramp. Provided a f/u apt in wheelchair clinic to address drive control programming adjustments. Phone contact: 15 min /el/ LATISHA BUTT, PT, DPT, NCS, ATP PHYSICAL THERAPIST Signed: 04/23/2023 13:49 LATISHA BUTT [facility]
--- OUTSIDE RECORDS SUMMARY | 2023-11-18 12:44 | XMS_ITS | Encounter Summary ---
Author Name Department of Vetera Affairs Organization Department of Vetera ns Affairs Address [address] [place] [address] Support Name Relationship Address Phone WADE DEGROOT Next of Kin [address] [place] [address] WADE DEGROOT Emergency Contact [address] [place] [address] CHANTEL DEGROOT Next of Kin [place] DENNISON Emergency Contact [facility] CON SENT FOR [facility] [place] Insurance Providers: All historical and current Section [...] PART B Jul 12, 2004 PART B [id number] [phone] Kasie DEGROOT RED PATIENT MEDICARE (WNR) MEDICARE (M) PART A Oct 11, 2002 PART A [id number] [id number] [phone] Kasie DEGROOT RED PATIENT Selected Encounter This section includes the information on record at [place] for the Encounter. Date/Time Encounter Type Encounter Description Reason Pro vider Source Oct 28, 2023 08:37 AM Outpatient Encounter [facility]UNITY CARE CONSULT [facility] Encounter Template Text not used [...] 05, 2023 ADVANCE DIRECTIVE DISCUSSION GUSTAVO ABAD [facility] Encounter Notes: All associated encounter notes This section contains the clinical notes associated to the Encounter. Date/Time Encounter Note(s) Provider Source Oct 28, 2023 08:37 AM PHARMACY NOTE: LOCAL TITLE: PHARMACY NON VA CARE MEDICATIONS STANDARD TITLE: PHARMACY NOTE DATE OF NOTE: OCT 28, 2023@08:37 ENTRY DATE: OCT 28, 2023@08:37:30 AUTHOR: CASA CASH EXP COSIGNER: URGENCY: STATUS: COMPLETED PHARMACY NON VA CARE MEDICATIONS Has [facility] Outpatient Pharmacy RECEIVED electronic prescription(s) (eRX(s)) from NON-VA Provider:SHANEKA HAHN Date eRX received: Oct [place] not eligible to receive non-VA prescription(s) at this time. Prescription(s) REDIRECTED via FAX to: [X][facility] [ ]Other: [ ] [facility] ([facility] [ ] [facility] [ ] [facility] [ ] [facility] eRx Reference #:[id number] eRx Prescription Information: eRx Drug: Transparent Mepitel Film eRx Qty: 20 eRx Refills: 2 eRx Days Supply: eRx Sig: As directed, following wound care orders /el/ CASA CASH PHARMACIST Signed: 10/28/2023 08:38 10/28/2023 ADDENDUM STATUS: COMPLETED [place] [facility] forwarding to [facility] nurse as he sees them. Prescription scanned into this note. /el/ DENNIS RETANA LPN Co-Furniture Installer Signed: 10/28/2023 14:48 Receipt Acknowledged By: * AWAITING SIGNATURE * SPENSER YOON ANDREA L [facility]
--- OUTSIDE RECORDS SUMMARY | 2023-11-18 12:45 | XMS_ITS ---
Author Name Unknown Organization [facility] Address [address] [address] Care Team Providers Care Extermination Inspector Name Role Phone Franklin Squires MD Primary Care Provider Active Problems Problem Noted Date Diagnosed Date Cataract 10/21/2015 Carpal tunnel syndrome 10/21/2015 Bilateral carpal tunnel syndrome 06/29/2015 Thrombophlebitis of deep veins of lower extremit y 04/25/2015 Paraplegia 03/30/2015 Osteoporosis 03/30/2015 Back pain, chronic 03/30/2015 Encounter for long-term (current) use of medicat ions 09/02/2014 Overview: Overview: Signed 11/13/2011 Bianka Chavez RN............09/02/2014 10:04 AM ; Encounter for long-term (current) use of other medications Encounter for long-term (current) use of medicat ions 09/02/2014 Overview: Overview: Signed 11/13/2011 Bianka Chavez RN............09/02/2014 10:04 AM Subdural hematoma 08/20/2014 Tinnitus of both ears 06/10/2014 Overview: Overview: Began 3-4 weeks ago Bilateral sensorineural hearing loss 06/10/2014 Sensorineural hearing loss (SNHL) of both ears 0 06/10/2014 History of anticoagulant therapy 02/17/2014 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 Current Oncology Plans No current plan information found. Past Plans Radiation Treatments * No radiation treatments are documented for this patient in [facility]. Treatments may have been administered in another system. Resolved Problems Problem Noted Date Diagnosed Date Resolved Date Gait abnormality 01/17/2012 02/09/2015 Back pain 01/17/2012 02/09/2015 Paraplegia 04/04/2011 02/09/2015 Osteoporosis 03/06/2011 02/09/2015 Urinary tract infection 12/24/200603/11
--- OUTSIDE RECORDS SUMMARY | 2023-11-18 12:45 | XMS_ITS | Encounter Summary ---
Author Name Unknown Organization [facility] Address [address] [address] Care Team Providers Care Condenser Setter Name Role Phone Franklin Squires MD Primary Care Provider [phone] Encounter Details Date Type Department Care Team Description 11/23/2015 Correspondence External to External, [place] [address] LETTER [facility] Social History Tobacco Use Types Packs/Day Years Used Date Smoking Tobacco: Never Smokeless Tobacco: Never Alcohol Use Standard Drinks/Week Comments No 0 (1 standard drink = 0.6 oz pur e alcohol) Sex and Gender Information Value Date Recorded Sex Assigned at Male 08/06/2021 5:59 PM CDT Gender Identity Male 08/06/2021 5:59 PM CDT Sexual Orientation Straight 08/06/2021 5: 59 PM CDT documented as of this encounter Plan of Treatment Not on file documented as of this encounter Visit Diagnoses Not on filedocumented in this encounter Care Teams Condenser Setter Relationship Specialty Start Date End Date Franklin Squires MD [address] [facility] [place] [address] PCP - General Family Practice 03/08/16 documented as of this encounter
--- OUTSIDE RECORDS SUMMARY | 2023-11-18 12:45 | XMS_ITS | Encounter Summary ---
Author Name Unknown Organization [facility] Address [address] [address] Care Team Providers Care Acid Loader Name Role Phone Franklin Squires MD Primary Care Provider [phone] Encounter Details Date Type Department Care Team Description 06/07/2015 Correspondence [facility] [address] [place] [address] Radiology, Provider MRI SAFETY SHEET AND COMPATIBILITY FORM Social History Tobacco Use Types Packs/Day Years [...] filedocumented in this encounter Care Teams Acid Loader Relationship Specialty Start Date End Date Franklin Squires MD [address] [facility] [place] [address] PCP - General Family Practice 03/08/16 documented as of this encounter
--- OUTSIDE RECORDS SUMMARY | 2023-11-18 12:45 | XMS_ITS | Encounter Summary ---
Author Name Unknown Organization [facility] Address [address] [place] [address] Care Team Providers Care Utility Assembler Name Role Phone Franklin Squires MD Primary Care Provider [phone] Encounter Details Date Type Department Care Team Description 05/24/2016 Consent for Procedure/Treatment [facility] INFORMED CONSENT RECORD Social History Tobacco Use Types Packs/Day [...] on filedocumented in this encounter Care Teams Utility Assembler Relationship Specialty Start Date End Date Franklin Squires MD [address] [place], [place] [address] [address] PCP - General Family Practice 03/08/16 documented as of this encounter
--- OUTSIDE RECORDS SUMMARY | 2023-11-18 12:45 | XMS_ITS | Encounter Summary ---
Author Name Unknown Organization [facility] Address [address] [place] [address] Care Team Providers Care Electrician Manager Name Role Phone Franklin Squires MD Primary Care Provider Encounter Details Date Type Department Care Team Description 03/08/2016 Consent for Procedure/Treatment [facility] Department INFORMED CONSENT [...] on filedocumented in this encounter Care Teams Electrician Manager Relationship Specialty Start Date End Date Franklin Squires MD [address] [place], [place] [address] [address] PCP - General Family Practice 03/08/16 documented as of this encounter
--- OUTSIDE RECORDS SUMMARY | 2023-11-18 12:45 | XMS_ITS | Encounter Summary ---
Author Name Unknown Organization [facility] Address [address] [address] Care Team Providers Care Credit And Collections Representative Name Role Phone Franklin Squires MD Primary Care Provider Encounter Details Date Type Department Care Team Description 07/08/2015 Correspondence [facility] Physical Therapy [address] [place] [address] Trudi Raymundo, PT [address] [place] [address] ADDENDUM FOR LETTER OF MEDICAL NECESSITY Social History Tobacco Use Types Packs/Day Years [...] on filedocumented in this encounter Care Teams Credit And Collections Representative Relationship Specialty Start Date End Date Franklin Squires MD [address] [facility] [place] [address] PCP - General Family Practice 03/08/16 documented as of this encounter
--- OUTSIDE RECORDS SUMMARY | 2023-11-18 12:45 | XMS_ITS | Encounter Summary ---
Author Name Unknown Organization [facility] Address [address] [address] Care Team Providers Care Patent Legal Assistant Name Role Phone Franklin Squires MD Primary Care Provider Encounter Details Date Type Department Care Team Description 02/09/2016 Correspondence [facility] [address] [facility]. [place], [place] [id number] Jodi Aguila PA-C [address] [place] [address] PATIENT LIFT PRESCRIPTION Social History Tobacco Use Types Packs/Day Years [...] on filedocumented in this encounter Care Teams Patent Legal Assistant Relationship Specialty Start Date End Date Franklin Squires MD [address] [facility] [address] PCP - General Family Practice 03/08/16 documented as of this encounter
--- OUTSIDE RECORDS SUMMARY | 2023-11-18 12:45 | XMS_ITS | Clinical Summary ---
Author Name Unknown [facility] Address [address] [place] [address] Care Team Providers Care Ditching Machine Operating Engineer Name Role Phone Franklin Squires MD Primary Care Provider [phone] Source Comments You are receiving this document as you are listed as the primary care provider,follow-up provider, or the patient has been referred to you for consultation.This is in compliance with the Medicare and[facility] EHR Incentive Program,which states Providers who transition their patient to another setting of careor provider of care or refers their patient to another provider of care shouldprovide summary care record for each transition of care or referral. [facility] Allerg[facility] Active Allergy Reactions Criticality Noted Date Comments Amoxicillin Rash 06/07/2015 Metolazone Itching 02/21/2017 Morphine And Related Other, see comments 2016 confusion Penicillins Rash 10/21/2014 Piperacillin Sod-Tazobactam So Unknown 02/21 Piperacillin-Tazobactam In Dex Rash 02/21 Sulfasalazine Rash 06/07/2015 Sulfa Antibiotics Rash 04/27/2010 Medications Medication Sig Dispensed Refills Start Date End Date Status Multiple Vitamins-Minerals (CENTRUM SILVER OR) Take 1 Tab by mouth daily. 0 Active LORazepam (AKA ATIVAN) 0.5 MG tablet Take 0.5 mg by mouth every 4 hours as needed for Anxiety. 0 Active warfarin (AKA COUMADIN) 5 MG tabletIndications:De ep Vein Thrombosis Take 1 tablet (5mg) by mouth on Mondays and take 1.5 tablets (7.5mg) all other days of the week Indications: Blood Clot in a Deep Vein 0 Active buPROPion (AKA WELLBUTRIN SR) 150 MG 12 hour release tabletIndications:Ma matt Depressive Disorder Take 1 Tab by mouth two times a day. Indications: Major Depressive Disorder 0 10/21/2014 Active atorvastatin (LIPITOR) 40 MG tabletIndications:hi gh Choelsterol Take 1 Tab by mouth daily. Indications: high Choelsterol 30 Tab 11 10/21/2014 Active polyethylene glycol (AKA MIRALAX) packetIndications:Co nstipation Take 1 Packet by mouth daily. Indications: Constipation 10 Each 2 10/21/2014 Active baclofen (AKA LIORESAL) 20 MG tabletIndications:Mu scle Spasticity Take 2 Tabs by mouth three times a day. Indications: Muscle Spasticity 90 Tab 0 10/21/2014 Active cholecalciferol (AKA VITAMIN D3) 1000 UNITS tabletIndications:Vi tamin D Deficiency Take 2 Tabs by mouth daily. Indications: Vitamin D Deficiency 60 Tab 11 10/21/2014 Active furosemide (LASIX) 40 MG tablet Take 40 mg by mouth two times a day. 0 Active DULoxetine (AKA CYMBALTA) 20 MG capsule Taking 4 tabs in morning and 2 tabs in afternoon 0 Active Potassium Chloride (KLOR-CON OR) Takes 40 meq twice daily 0 Active gabapentin (AKA NEURONTIN) 400 MG capsule TAKE 1 CAPSULE THREE TIMES A DAY FOR PAIN 270 Cap 0 09/02/2015 Active OXYCODONE HCL OR as needed. 0 Active sennosides-docusate sodium (SENOKOT S) 8.6-50 MG per tablet Take 1 Tab by mouth daily. 0 Active HYDROcodone-acetamin ophen (NORCO) 10-325 MG tablet Take 1 Tab by mouth. 0 07/19/2016 Acti ve fludrocortisone (FLORINEF) 0.1 MG tablet Take 100 mcg by mouth. 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 Resolved Problems Problem Noted Date Diagnosed Date Resolved Date Gait abnormality 01/17/2012 02/09/2015 Back pain 01/17/2012 02/09/2015 Paraplegia 04/04/2011 02/09/2015 Osteoporosis 03/06/2011 02/09/2015 Urinary tract infection 12/24/200603/11 Immunizations Name Administration Dates Next Due Flu Vac (3+ yrs) 10/06/2009 H1n1 Miv Csl 3+ Yr (Injected) 12/06/2009 Influenza, Unspecified Formulation 08/11/2014 PPSV23 (Pneumovax) 10/06/2009 Family History Medical History Relation Name Comments Cancer, Colon Mother Osteoporosis Mother no history of f ractures Cancer, Other Brother brother with t hroat cancer Cancer, Breast Sister Relation Name Status [...] Orientation Straight 08/06/2021 5: 59 PM CDT Last Filed Vital Signs Vital Sign Reading Time Taken Comments Blood Pressure 120/63 01/18/2022 12:59 PM LAY OUT WORKER Pulse 87 01/18/2022 12:59 PM LAY OUT WORKER Temperature 36.3 ??C (97.4 ??F) 01/18/2022 12:[address] Respiratory Rate 16 05/24/2016 4:27 PM CDT [...] 1945 Diabetes: Lipid Panel 1945 Diabetes: Urine Microalbumin 1945 Hep C Screening (Preventive Services) 1945 Medicare Annual Wellness Visit 1945 COVID-19 Vaccine (#1) 1945 Diabetes: HGBA1C 10/28/2014 07/29/2014 Zoster/Shingles (2 of 3) 01/11/2016 11/16/2015, 05/1 01/2013 Diabetes: Creatinine 01/06/2017 01/06/2016, 06/07/2015, 10/21/2014, Additional history exists DTaP/Tdap/Td (2 - Tdap) 06/28/2021 06/28/2011 Influenza (#1) 2023 09/03/2021, 07/2020, 08/20/2019, Additional history exists Pneumococcal 65+ Yrs Completed 10/19/2015, 08/13/2011, 10/06/2009, Additional history exists HepA Aged Out No longer eligi ble based on patient's age to complete this topic HepB Aged Out No longer eligi ble based on patient's age to complete this topic Hib Aged Out No longer eligi ble based on patient's age to complete this topic IPV (Polio) Aged Out No longer eligi ble based on patient's age to complete this topic MCV4 Aged Out No longer eligi ble based on patient's age to complete this topic Medical Devices Implanted Type Area Drapery Inspector Device Identifier Shelf Expiration Date Model / Serial / Lot [id number] 4ml Tisseel Explanted:([place] ntity not on file) BIOLOGIC N/A: NECK Lynne Fenwall 09/10/2011 [id number] / [id number] / [id number] Description:posterior Cath Intrathecal Indura - [id number] Implanted:Qty: 1 on 05/09/2010 at [facility] DEVICE Right: LUMBAR SPINE [employer] 01/18/2012 [id number] / N/A / [id number] Cath Intrathecal Indura - [id number] Implanted:Qty: 1 on 05/29/2010 at [facility] DEVICE [employer] Carlos 8709 / / Plt Lcp M/Prox Lt 3.5x94 4h - [id number] Implanted:Qty: 1 on 03/13/2011 at [facility] DEVICE Left: TIBIA PROXIMAL [employer] 239.955 / NONE / NONE Scr Matrix Sfdr 4mm - [id number] Implanted:Qty: 6 on 07/28/2014 by Cooper Shelley MD at [facility] DEVICE Right: SKULL [employer] [id number] 4.01 / / Lead Linear 3-4 8 Contact 50cm - [id number] Implanted:Qty: 1 on 03/08/2016 by Zelalem Cohen DO at [facility] DEVICE N/A: OTHER-SEE DESCRIPTION [facility] 09/10/2017 [id number] / / [id number] Description:LUMBAR Mooers Ran - [id number] Implanted:Qty: 1 on 05/24/2016 by Zelalem Cohen DO at [facility] DEVICE N/A: SPINE LUMBAR POSTERIOR [facility] 02/28/2018 [id number] / / [id number] Advance Directives Latest Code Status on File Code Status Date Activated Date Inactivated Comments Full Code 05/24/2016 10:29 AM 05/24/2016 8:28 PM Code Status History Code Status Date Activated Date Inactivated Comments Full Code 03/08/2016 5:56 AM 03/08/2016 2:53 PM Full Code 10/20/2014 6:21 PM 10/21/2014 2:47 PM Full Code 07/28/2014 6:50 PM 08/02/2014 8:36 PM Full Code 07/28/2014 5:44 PM 07/28/2014 6:50 PM Care Teams Ditching Machine Operating Engineer Relationship Specialty Start Date End Date Franklin Squires MD [address] [facility] [place] [address] PCP - General Family Practice 03/08/16
--- OUTSIDE RECORDS SUMMARY | 2023-11-18 12:45 | XMS_ITS | Encounter Summary ---
Author Name Unknown Organization [facility] Address [address] [address] Care Team Providers Care Senior Resident Care Director Name Role Phone Franklin Squires MD Primary Care Provider [phone] Encounter Details Date Type Department Care Team Description 12/11/2017 Correspondence [facility] Physical Medicine [address] [facility]. [place], [place] [id number] May Randle MD [address] [place] [address] [employer] Social History Tobacco Use Types Packs/Day Years [...] filedocumented in this encounter Care Teams Senior Resident Care Director Relationship Specialty Start Date End Date Franklin Squires MD [address] [facility] [place] [address] PCP - General Family Practice 03/08/16 documented as of this encounter
--- OUTSIDE RECORDS SUMMARY | 2023-11-18 12:45 | XMS_ITS | Encounter Summary ---
Author Name Unknown Organization [facility] Address [address], [place] [address] Care Team Providers Care Wheelman Name Role Phone Franklin Squires MD Primary Care Provider Encounter Details Date Type Department Care Team Description 01/06/2016 Correspondence [facility] Radiology [address] [place] [id number] Radiology, Provider MRI SAFETY SHEET AND COMPATIBILITY [...] on filedocumented in this encounter Care Teams Wheelman Relationship Specialty Start Date End Date Franklin Squires MD [address] [place] [address] [place] [address] PCP - General Family Practice 03/08/16 documented as of this encounter
--- OUTSIDE RECORDS SUMMARY | 2023-11-18 12:45 | XMS_ITS | Encounter Summary ---
Author Name Unknown Organization [facility] Address [address], [place] [address] Care Team Providers Care Occupational Health Coordinator Name Role Phone Franklin Squires MD Primary Care Provider Encounter Details Date Type Department Care Team Description 12/16/2014 Correspondence External to External, [place] [address] MEDICARE PLAN OF CARE RECERT Social History Tobacco Use Types Packs/Day Years [...] on filedocumented in this encounter Care Teams Occupational Health Coordinator Relationship Specialty Start Date End Date Franklin Squires MD [address] [facility] [place] [address] PCP - General Family Practice 03/08/16 documented as of this encounter
--- OUTSIDE RECORDS SUMMARY | 2023-11-18 12:45 | XMS_ITS | Clinical Summary ---
Author Name Unknown Organization [facility] Address [place], [place] [address] Care Team Providers Care Childcare Teacher Name Role Phone Zelalem Cohen MD Unavailable [phone] May Randle MD Unavailable [phone] Franklin Squires MD Primary Care Provider Fred Craft Unavailable [phone] Diane Charles MD Unavailable [phone] Julia Ware RN Unavailable [phone] Allergies Active Allergy Reactions Criticality Noted Date Comments Levofloxacin Confusion 10/18/2023 Morphine Other - Describe In Comment Field 02/21/2017 confusion Sulfa (Sulfonamide Antibiotics) Rash 04/27/2010 Sulfasalazine Rash 04/27/2010 Metolazone Itching 09/15/2007 Medications Medication Sig Dispensed Refills Start Date End Date Status FOLIC ACID/MULTIVITS-MIN/LUT (CENTRUM SILVER ORAL) Take 1 tablet by mouth once daily. 0 Active cholecalciferol (VITAMIN D3) 1,000 unit tablet Take 1,000 Units by mouth once daily. 0 Active milk of magnesia (MOM) 400 mg/5 mL suspension Take 15-30 mL by mouth once daily. 0 Active lancets 28 gauge misc Test 4 times per day 100 Each 0 018 Active hospital bedIndications:Non-heal ing surgical wound, subsequent encounter [employer] 8 inch low loss mattress and 1/2 rails. Semi-electric bed. Length of need 6 weeks. 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 Max acetaminophen dose: 4000mg in 24 hrs. 0 Active sodium chloride (AYR SALINE NASL) Inhale 2-3 Sprays in the nostril(s) once daily if needed. 0 Active Ostomy Supplies miscIndications:Neuroge halina bowel,Colostomy in place (HC) As directed. [employer] Click Ostomy Barrier with belt tabs 60mm, Cut-to-Fit 01/16 - 2 11/18. Item #[id number]. 1 Each 11 021 Active gabapentin (NEURONTIN) 400 mg capsuleIndications:Gay re back pain Take 1 Capsule (400 mg) by mouth three times daily. 270 Capsule 3 022 Active furosemide (LASIX) 40 mg tabletIndications:Bilat eral lower extremity edema Take 1 Tablet (40 mg) by mouth two times daily. 180 Tablet 3 023 Active baclofen (LIORESAL) 20 mg tabletIndications: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) TAKE 2 TABLETS THREE TIMES A DAY 540 Tablet 3 023 Active ascorbic acid, vitamin C, (Vitamin C) 500 mg tablet Take 1,000 mg by mouth two times daily with meals. 0 Active fluticasone (50 mcg per actuation) nasal solution (FLONASE) Inhale 2 Sprays into affected nostril(s) once daily if needed for Rhinitis. 0 Active amLODIPine (NORVASC) 5 mg tabletIndications:Labil e hypertension Take 1 Tablet (5 mg) by mouth once daily. 90 Tablet 3 023 Active Procedural Tray trayIndications:Neuroge halina bladder As directed. Irrigation tray with Piston Syringe for flushing supra pubic catheter daily 12 Each 023 Active potassium chloride (KLOR-CON) 20 mEq extended-release tablet (part/cryst)Indications :Hypokalemia Take 1 Tablet (20 mEq) by mouth once daily with a meal. 90 Tablet 3 023 Active ARIPiprazole (ABILIFY) 2 mg tabletIndications:Delus ions of parasitosis (HC) Take 1 Tablet (2 mg) by mouth two times daily. 180 Tablet 3 023 Active atorvastatin (LIPITOR) 40 mg tabletIndications:Pure hypercholesterolemia Take 1 Tablet (40 mg) by mouth at bedtime. 90 Tablet 2 023 Active donepeziL (ARICEPT) 5 mg tabletIndications:Confu hailey Take 1 Tablet (5 mg) by mouth at bedtime. 90 Tablet 0 023 Active famotidine (PEPCID) 20 mg tabletIndications:Gastr itis, presence of bleeding unspecified, unspecified chronicity, unspecified gastritis type TAKE 1 TABLET TWICE A DAY 180 Tablet 2 023 Active buPROPion (WELLBUTRIN SR) 150 mg Sustained-Release tabletIndications:Depre ssive disorder TAKE 1 TABLET TWICE A DAY 180 Tablet 0 023 Active DULoxetine (CYMBALTA) 60 mg Delayed-release capsuleIndications:Depr essive disorder TAKE 1 CAPSULE TWICE A DAY 180 Capsule 1 023 Active oxyCODONE 10 mg tabletIndications:Chron ic pain syndrome TAKE ONE TABLET BY MOUTH EVERY 6 HOURS 120 Tablet 0 023 Active LORazepam (ATIVAN) 0.5 mg tabIndications:Parapleg ia (HC) TAKE ONE TABLET BY MOUTH TWICE A DAY AND TAKE TWO TABLETS BY MOUTH AT BEDTIME 120 Tablet 2 023 Active potassium chloride (KLOR-CON M10) 10 mEq extended-release tablet (part/cryst)Indications :Hypokalemia Take 2 Tablets (20 mEq) by mouth once daily with a meal. 180 Tablet 3 023 Active warfarin (COUMADIN) 7.5 mg tabletIndications: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),Anticoagulation monitoring, INR range 2-3,SDH (subdural hematoma) (HC) Take by mouth 11/06: 5 mg; Otherwise 5 mg every [place]ina; 7.5 mg all other days or as directed. 0 023 Active warfarin (COUMADIN) 5 mg tabletIndications: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),Anticoagulation monitoring, INR range 2-3,SDH (subdural hematoma) (HC) Take by mouth 11/06: 5 mg; Otherwise 5 mg every [place]; 7.5 mg all other days or as directed. 30 Tablet 0 Active Catheter (De La Cruz Catheter) 22 Fr miscIndications:Neuroge halina bladder As directed. 3 Each 3 Active Catheter kitIndications:Neurogen ic bladder As directed. 3 Kit 3 Active LORazepam (ATIVAN) 0.5 mg tabIndications:Parapleg ia (HC) TAKE ONE TABLET BY MOUTH TWICE A DAY AND TAKE TWO TABLETS BY MOUTH AT BEDTIME 120 Tablet 2 023 2022 Discontinued fluconazole (DIFLUCAN) 100 mg tabletIndications:Yeast infection Take 1 Tablet (100 mg) by mouth once daily. 10 Tablet 0 023 2022 Discontinued(* Patient states no longer taking) doxycycline (VIBRAMYCIN) 100 mg capsuleIndications:Rash and nonspecific skin eruption Take 1 Capsule (100 mg) by mouth two times daily. 14 Capsule 0 023 2022 Discontinued(* Patient states no longer taking) warfarin (COUMADIN) 7.5 mg tabletIndications: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),Anticoagulation monitoring, INR range 2-3,SDH (subdural hematoma) (HC) Take by mouth 5 mg (5 mg x 1) every [place]; 7.5 mg (7.5 mg x 1) all other days in the evening OR as directed 90 Tablet 1 023 2022 Discontinued(O ther - add note to specify (E-cancel not sent)) warfarin (COUMADIN) 5 mg tabletIndications: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),Anticoagulation monitoring, INR range 2-3,SDH (subdural hematoma) (HC) Take by mouth 5 mg (5 mg x 1) every [place]; 7.5 mg (7.5 mg x 1) all other days in the evening OR as directed 20 Tablet 1 023 2022 Discontinued(O ther - add note to specify (E-cancel not sent)) oxyCODONE 10 mg tabletIndications:Chron ic pain syndrome TAKE ONE TABLET BY MOUTH EVERY 6 HOURS 120 Tablet 0 11/14/2 023 2022 Discontinued amoxicillin-clavulanate 875-125 mg tablet (AUGMENTIN)Indications: Skin ulcer, unspecified ulcer stage (HC) Take 1 Tablet by mouth two times daily with meals for 10 days. 20 Tablet 0 023 2022 Discontinued(R eorder (E-cancel not sent)) amoxicillin-clavulanate 875-125 mg tablet (AUGMENTIN)Indications: Skin ulcer, unspecified ulcer stage (HC) Take 1 Tablet by mouth two times daily with meals. 20 Tablet 0 023 2022 Discontinued(* Patient states no longer taking) warfarin (COUMADIN) 5 mg tabletIndications: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),Anticoagulation monitoring, INR range 2-3,SDH (subdural hematoma) (HC) Take by mouth 10/26: 5 mg; Otherwise 5 mg every [place]; 7.5 mg all other days in the evening OR as directed 0 023 2022 Discontinued(R eorder (E-cancel not sent)) warfarin (COUMADIN) 5 mg tabletIndications: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),Anticoagulation monitoring, INR range 2-3,SDH (subdural hematoma) (HC) Take by mouth 5 mg every [place]; 7.5 mg all other days in the evening OR as directed 30 Tablet 0 023 2022 Discontinued(O ther - add note to specify (E-cancel not sent)) Active Problems Problem Noted Date Diagnosed Date Soft tissue infection 10/22/2023 Stage 4 pressure ulcer 10/22/2023 Peripheral neuropathy 06/24/2023 penitentiary current use of anticoagulant Quadriplegia, unspecified 10/23/2022 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 10/12/2021 Chronic obstructive pulmonary disease 10/12/2021 Serratia marcescens infection 10/05/2021 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 Other constipation 10/04/2021 Chronic pain syndrome 10/04/2021 Type 2 diabetes mellitus, wi thout long-term current use of insulin 01/06/2021 Normochromic anemia 08/25/2020 SVT (supraventricular tachycardia) 07/07/2020 Overview: status post ablation 07/06/2020 Pressure ulcer, sacrum 05/30/2020 Deep tissue injury 04/18/2020 Overview: Left lower back MRSA infection 04/08/2020 Pressure injury of right buttock, stage 1 2018 Complicated UTI (urinary tract infection) 2018 Major depressive disorder, recurrent episode, mo derate 04/26/2019 Neck pain 04/09/2019 Type 2 diabetes mellitus wit h complication, with long-term current use of insulin 01/18/2019 Major depressive disorder, recurrent episode, mo derate 01/18/2019 right ischial area pressure ulcer, stage 4 09/08 Overview: Flap repair to right ischial stage 4 pressure ulcer 08/[address] Perez Anxiety and depression 01/15/2018 History of DVT (deep vein thrombosis) 01/15/2018 NSTEMI (non-ST elevated myocardial infarction) 0 01/14/2018 Chronic pain syndrome 12/06/2017 Urinary tract infection asso ciated with indwelling urethral catheter 05/01/2017 S/P insertion of spinal cord stimulator 07/22/20 16 Carpal tunnel syndrome of left wrist 10/21/2015 Cataract, right eye 10/21/2015 Iliofemoral thrombophlebitis of both lower extre mities 08/18/2015 Controlled substance agreement signed 09/02/2014 Overview: 01/16/[address] Squires Compliance Urine 01/2020 60 oxycontin 30 tabs, 30 oxycontin 15 tabs, lorazepam 120 tabs, oxycodone 10 tabs Per month (Spinal tumor) Tinnitus, bilateral 06/10/2014 Overview: Began 3-4 weeks ago Sensorineural hearing loss, bilateral 06/10/2014 Anticoagulation monitoring, INR range 2-3 2013 Overview: GOAL 2.0-2.5 (but use 2-3 guidelines per Tavia 03/02/19)-- Osteoporosis, unspecified 02/12/2011 Vitamin D deficiency 09/08/2010 Paraplegia 09/27/2008 Last Assessment & Plan: Orthopedics: Dr. Bright PM&R: Dr. May Randle Pain Management: Dr. 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 Pure hypercholesterolemia 12/24/2006 Neurogenic bladder 12/24/2006 Neurogenic bowel 12/24/2006 Hypertension Resolved Problems Problem Noted Date Diagnosed Date Resolved Date Cellulitis of scrotum 05/08/20232022 UTI (urinary tract infection) 05/08/2023 06/20/2023 Continuous opioid dependence 07/01/2022 08/20/2022 Urinary tract infection asso ciated with indwelling urethral catheter 10/05/2021 06/20/2023 Hypertensive urgency 10/04/2021 023 Acute hyponatremia 08/25/2020 Decubitus ulcer of right isc hial area, stage III 04/18/2020 11/24/2021 Septic encephalopathy 04/14/20202022 Aspiration pneumonia 04/08/2020 023 Elevated LFTs 04/08/2020 06/20/2023 Pleural effusion on right 04/07/2020 Delirious 04/05/2020 06/20/2023 Suspected COVID-19 virus infection 04/05/2020 06/20/2023 Sepsis due to Escherichia coli (e. coli) 05/13/2019 06/20/2023 Bacteremia due to Gram-negative bacteria 05/11/2019 06/20/2023 Sepsis due to gram-negative bacteria 05/11/2019 06/20/2023 Sepsis due to urinary tract infection 05/10/2019 06/20/2023 Hyponatremia 04/09/2019 06/20/2023 Septic encephalopathy 04/09/[address] 04/09/2019 2 Hyperglycemia 01/15/2018 06/20/2023 Stage 4 pressure ulcer, right buttock 01/15/2018 02/13/2018 Diabetes mellitus with hyperglycemia 01/14/2018 01/15/2018 Hypotension 01/14/2018 01/15/2018 CAROLEE (acute kidney injury) 01/14/2018 Hypotension 05/01/2017 01/15/2018 Sepsis 05/01/2017 01/15/2018 Surgical wound, non healing 04/05/2017 04/18/2020 Overview: Right buttock wound status post incision and drainage and wide debridement for necrotizing fasciitis Abscess of buttock 03/07/2017 7 Sepsis 03/07/2017 01/15/2018 Encephalopathy in sepsis 03/07/2017 Severe sepsis 03/04/2017 01/15/2018 Septic encephalopathy 03/04/20172017 Malnutrition 03/04/2017 01/15/2018 Sepsis affecting skin 03/03/20172017 Pressure ulcer of contiguous region involving right buttock and hip, stage 3 03/03/2017 7 UTI (urinary tract infection) 03/03/2017 01/15/2018 Partial bowel obstruction 09/25/2016 Delirium 04/17/2016 09/25/2016 Medication reaction 04/16/2016 09/25/20 16 Iliofemoral thrombophlebitis of left lower extremity 04/25/2015 04/17/2016 DVT, lower extremity, recurr ent, unspecified laterally 03/14/2015 04/25/2015 Hx of SDH (subdural hematoma ), non traumatic, 07/28/2014 08/20/2014 11/24/2021 Anxiety 03/23/2013 01/15/2018 Pain medication agreement 11/12/2011 Overview: Vicodin for chronic back pain. 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 02/19/2007 09/27/2008 Depressive disorder, not elsewhere classified 02/14/20 07 01/15/2018 Abnormality of gait 12/24/2006 09/27/20 08 Urinary tract infection, site not specified 12/24/2006 01/15/2018 BENIGN ESSENTIAL HYPERTENSION 12/24/2006 04/17/2016 Overview: borderline Necrotizing fasciitis 2018 Type 2 diabetes mellitus Encounters Date Type Department Care Team Description 11/18/[address] [place] [address] Franklin Squires MD Form 11/15/[address] [place] [address] Franklin Squires MD Form 11/14/[address] [place] [address] Franklin Squires MD Form 11/13/2023 1:00 PM APPLICATION ARCHITECT Nurse/Clinic Staff Only [address] [place] [address] Removal; Insert 11/13/[address] [place] [address] Diane Charles MD 11/13/2023 Travel 11/12/[address] [place] [address] Franklin Squires MD Form 11/08/2023 Anticoagulation (warfarin) [address] [place] [address] , [facility] Anticoagulation (acelis) 11/06/2023 Orders Only [facility] Scanner 1 scan: (1-Ord) [facility], INR 10/29/23 - 11/05/26, 11/06/2023 11/06/[address] [place] [address] , [facility] Refill Request (Warfarin 5 mg ) 11/06/2023 Anticoagulation (warfarin) [address] [place] [address] [place] [address] Inr Clinic In [facility] Anticoagulation (Chart update) 10/30/2023 Orders Only [facility] Scanner 1 scan: (1-Ord) [facility], SHARP DEBRIDEMENT DOWN TO BONE, 10/30/2023 10/29/2023 10:56 AM APPLICATION ARCHITECT - 10/29/2023 11:59 PM APPLICATION ARCHITECT Hospital Encounter [facility] [address] [facility] [place] [address] Yudith Mcgraw NP Soft tissue infection (Primary Dx) 10/29/2023 Travel 10/29/2023 Anticoagulation (warfarin) [facility] [address] [facility] [place] [address] [place] [address] Inr Clinic [facility] Anticoagulation (acelis) 10/28/2023 12:28 PM APPLICATION ARCHITECT - 10/28/2023 11:59 PM APPLICATION ARCHITECT Hospital Encounter [facility] [address] [facility] [place] [address] Yudith Mcgraw NP Soft tissue infection (Primary Dx) 10/28/2023 Orders Only [facility] [address] [facility] [place] [address] Diane Charles MD <No scans attached> 10/27/2023 12:26 PM APPLICATION ARCHITECT - 10/27/2023 1:35 PM APPLICATION ARCHITECT Hospital Encounter [facility] [address] [facility] [place] [address] Yudith Mcgraw NP Cahill, Terence Patrick, MD Soft tissue infection (Primary Dx) Discharge Disposition: Home Self Care 10/27/2023 Travel 10/26/2023 12:41 PM APPLICATION ARCHITECT - 10/26/2023 1:28 PM APPLICATION ARCHITECT Hospital Encounter [facility] [address] [facility] [place] [address] Yudith Mcgraw, Franklin Sorensen MD Soft tissue infection (Primary Dx) Discharge Disposition: Home Self Care 10/26/2023 Travel 10/25/2023 3:42 PM APPLICATION ARCHITECT - 10/25/2023 6:10 PM APPLICATION ARCHITECT Hospital Encounter [facility] [address] [facility] [place] [address] Yudith Mcgraw NP Discharge Disposition: Home Self Care 10/25/2023 12:40 PM APPLICATION ARCHITECT - 10/25/2023 1:30 PM APPLICATION ARCHITECT Hospital Encounter [facility] [address] [facility] [place] [address] Yudith Mcgraw NP Cahill, Terence Patrick, MD Soft tissue infection (Primary Dx) Discharge Disposition: Home Self Care 10/25/2023 Travel 10/25/2023 Anticoagulation (warfarin) [facility] [address] [place] [address] , [facility] Anticoagulation (acelis) 10/24/2023 12:24 PM APPLICATION ARCHITECT - 10/24/2023 11:59 PM APPLICATION ARCHITECT Hospital Encounter [facility] [address] [place] [address] Yudith Mcgraw NP Soft tissue infection (Primary Dx) 10/24/2023 Anticoagulation (warfarin) [facility] [address] [place] [address] , [facility] Anticoagulation (Chart update, interacting medication) 10/23/2023 1:30 PM APPLICATION ARCHITECT Nurse/Clinic Staff Only [facility] [address] [place] [address] Removal; Insert 10/23/2023 12:22 PM APPLICATION ARCHITECT - 10/23/2023 11:59 PM APPLICATION ARCHITECT Hospital Encounter [facility] [address] [place] [address] Yudith Mcgraw NP Soft tissue infection (Primary Dx) 10/23/2023 Orders Only [facility] Scanner 1 scan: (1-Ord) [facility], CT PELVIS W CON , 10/23/2023 10/23/2023 Travel 10/23/2023 Telephone [facility] [address] [facility] [place] [address] Franklin Squires MD Refill Request; Medication Management (Clarification of Pot Chlor ER (Disp) Tabs) 10/22/2023 Transcribe Orders [facility] [address] [place] [address] Yudith Mcgraw NP 10/22/2023 Refill [facility] [address] [place] [address] Franklin Squires MD Refill Request (Oxycodone, Lorazepam) 10/18/2023 Anticoagulation (warfarin) [address] [address] 1, [facility] Anticoagulation (acelis) 10/16/2023 Refill [facility] [address] [place] [address] Franklin Squires MD Refill Request (Duloxetine) 10/07/2023 Refill [facility] [address] [place] [address] Franklin Squires MD Refill Request (Famotidine, Bupropion) 10/02/2023 2:00 PM APPLICATION ARCHITECT Nurse/Clinic Staff Only [facility] [address] [place] [address] Removal; Insert 10/02/2023 Travel 09/28/2023 Anticoagulation (warfarin) [address] [place] [address] 1, [facility] Anticoagulation (Acelis) 09/24/[address] [address] Franklin Squires MD Refill Request (Oxycodone) 09/20/2023 Anticoagulation (warfarin) [address] [address] 1, [facility] Anticoagulation (Acelis) 09/17/2023 Telephone [facility] [address] [place] [address] Franklin Squires MD Anticoagulation (Annual re-enrollment ) 09/11/2023 1:30 PM CDT Nurse/Clinic Staff Only [facility] [address] [place] [address] Removal; Insert 09/11/2023 Travel 08/30/2023 2:50 PM CDT Office Visit [facility] [address] [place] [address] Franklin Squires MD Wound Check 08/30/2023 Travel 08/30/2023 Anticoagulation (warfarin) [facility] [address] [place] [address] [place] [address] Inr Clinic [facility] Anticoagulation (Acelis) 08/25/[address] [place] [address] Franklin Squires MD Refill Request (Warfarin) 08/23/[address] [place] [address] Franklin Squires MD Refill Request (Oxycodone) 08/22/2023 1:30 PM CDT Nurse/Clinic Staff Only [address] [place] [address] Nurse/Clinic Staff Only (Suprapubic catheter exchange) 08/22/2023 Travel 08/19/2023 Patient Outreach [address] [address] Julia Ware RN Primary RN Care Management; Ed F/u 08/18/2023 11:33 AM CDT - 08/18/2023 12:49 PM CDT Emergency [facility] [address] [facility] [place] [address] Marimar Gillis MD Rash and nonspecific skin eruption (Primary Dx); Soft tissue infection Discharge Disposition: Home Self Care 08/18/2023 Travel from Last 3 Months Immunizations Name Administration Dates Next Due COVID-19 vaccine (Pfizer-Bio NTech 30mcg/0.3mL) 12YO+ BIVALENT PF, MDV 10/22/2022 COVID-19 vaccine (Pfizer-Bio NTech 30mcg/0.3mL) PF, MDV 01/25/2021,01/02/2021 Influenza A (H1N1), Inactiva argenis (Age >=3 Years) 11/30/2009 Influenza Virus, Unspecified 09/03/2021 Influenza, High-dose Inactivated 08/21/2016,08/11,08/21/2014 Influenza, IIV3 (Age >=3 years) 09/03/20 13,08/06/2012,08/13/2011,2009,09/14/2009,10/11/2008,10/16/2007,1 01/02/2006 Influenza, Inactivated AIIV4 (Age 65+ Years) Preserv Free 10/22/2022,09/03/2021,08/19/2020 Influenza, Inactivated IIV3 (Age 65+ Years) Preserv Free 08/20/2019,08/18/2018,08/08/2017 Pneumococcal Poly,23-Valent (Pneumovax) 08/13/2011,10/06/2009,09/20/2005 Pneumococcal conj 13-Valent (Prevnar 13) 10/19/2015 Td, Preservative Free (age > = 7 Years) 05/28/2022 Tdap 06/28/2011 Zoster (Zostavax-ZVL, live) 11/16/2015, 3 Family History Medical History Relation Name Comments Diabetes Brother 2 Heart Disease Brother 3 ASCVD Cancer Brother 4 THROAT Diabetes Father Other Father RUPTURED AAA Cancer-colon Mother Diabetes Sister 1 Cancer Sister 5 KIDNEY,breast Relation Name Status Comments Brother 1 Brother 2 Alive Brother 3 Brother 4 Daughter Alive Father (Age 75) Mother (Age 82) Sister 1 Alive Sister 2 Alive Sister 3 Alive Sister 4 Alive Sister 5 Son Alive Social History Tobacco Use Types Packs/Day Years Used Date Smoking Tobacco: Never Passive Smoke Exposure: Never Smokeless Tobacco: Never Tobacco Cessation:Counseling Given: Not Answered Alcohol Use Standard Drinks/Week Comments Not Currently 0 (1 standard drink = 0.6 oz pur e alcohol) PHQ-2 Answer Date Recorded PHQ-2 TOTAL SCORE 0 06/29/2022 Social Connections Answer Date Recorded Frequency of Communication with Friends and Fami ly 0 05/08/2023 Financial Resource Strain Answer Date R ecorded Difficulty of Paying Living Expenses 3 05/08/2023 Difficulty of Paying Living Expenses Not on file 05/08/2023 Food Insecurity Answer Date Recorded Worried About Running Out of Food in the Last Ye ar 1 05/08/2023 Transportation Needs Answer Date Record ed Lack of Transportation (Medical) 1 05/08/2023 Housing Stability Answer Date Recorded Unable to Pay for Housing in the Last Year 1 05/08/2023 Sex and Gender Information Value Date Recorded Sex Assigned at Not on file Gender Identity Not on file Sexual Orientation Not on file Obstetrics History Last Filed Vital Signs Vital Sign Reading Time Taken Comments Blood Pressure 110/51 10/29/2023 11:17 AM APPLICATION ARCHITECT Pulse 89 10/29/2023 11:17 AM APPLICATION ARCHITECT Temperature 37.3 ??C (99.2 ??F) 10/27/2023 12:[address] Respiratory Rate 16 10/29/2023 11:17 AM APPLICATION ARCHITECT Oxygen Saturation 98% 10/29/2023 11:17 AM APPLICATION ARCHITECT Inhaled Oxygen Concentration - - Weight 99.8 kg (220 lb) 08/18/2023 11:40 AM CDT Height 180.3 cm (5' 11) 08/18/2023 11:40 AM CDT Body Mass Index 30.68 08/18/2023 11:40 AM CDT Plan of Treatment Upcoming Encounters Date Type Department Care Team (Late st Contact Info) Description 11/21/2023 1:50 PM APPLICATION ARCHITECT Office Visit [facility] [address] [facility] [place] [address] Franklin Squires MD [address] [place] [address] Health Maintenance Due Date Last Done Comments Hepatitis C screening for ag e 18-79 1963 Zoster (shingles) series for age 50+ (2 of 3) 01/11/2016 11/16/2015, 03/23/2013 Medicare Wellness for age 65+ 02/06/2018 02/06/2017, 10/19/2015 Depression screening for age 12+ 06/29/2023 06/29/2022, 06/27/2022, 05/12/2021, Additional history exists COVID-19 vaccine series ( season) 2023 10/22/2022, 08/06/2021, 01/25/2021, Additional history exists Influenza for age 65+ 07/12/2023 10/22/2022 , 09/03/2021, 09/03/2021, Additional history exists Tetanus booster 05/28/2032 05/28/2022, 06/28/2011 Tdap Completed 06/28/2011 Pneumococcal series for age 65+ Completed 10/19/2015, 08/13/2011, 10/06/2009, Additional history exists Procedures Procedure Name Priority Date/Time Associated Diagnosis Comments HOME MONITOR AC Routine 11/08/2023 12:00 AM APPLICATION ARCHITECT SCAN-LABORATORY REPORT 12:00 AM APPLICATION ARCHITECT INR,POCT Routine 11/05/2023 INR,POCT Routine 11/04/2023 INR,POCT Routine 11/03/2023 INR,POCT Routine 11/02/2023 INR,POCT Routine 11/01/2023 INR,POCT Routine 10/31/2023 INR,POCT Routine 10/30/2023 SCAN-OPERATIVE/PROCEDUR E REPORT 10/30/2023 12:00 AM APPLICATION ARCHITECT INR,POCT Routine 10/29/2023 HOME MONITOR AC Routine 10/29/2023 12:00 AM APPLICATION ARCHITECT XR CHEST 1 VIEW PORTABLE STAT 10/25/2023 5:07 PM APPLICATION ARCHITECT HOME MONITOR AC Routine 10/25/2023 12:00 AM APPLICATION ARCHITECT SCAN-OPERATIVE/PROCEDUR E REPORT 10/25/2023 12:00 AM APPLICATION ARCHITECT SCAN-CT INTERPRETATION 12:00 AM APPLICATION ARCHITECT HOME MONITOR AC Routine 10/18/2023 12:00 AM APPLICATION ARCHITECT HOME MONITOR AC Routine 09/28/2023 12:00 AM APPLICATION ARCHITECT HOME MONITOR AC Routine 09/20/2023 12:00 AM APPLICATION ARCHITECT HOME MONITOR AC Routine 08/30/2023 12:00 AM CDT LYME SCREEN W/REFLEX STAT 08/18/2023 12:21 PM CDT from Last 3 Months Results * HOME MONITOR AC (11/08/2023 12:00 AM APPLICATION ARCHITECT) Only the most recent of7 resultswithin the time period is included. PATIENT REPORTED HOME INR 2.2 2.00 - 3.00 [facility] 11/08/2023 Franklin Squires MD OTHER [facility] [address] [place] [address] * SCAN-LABORATORY REPORT (11/06/2023 12:00 AM APPLICATION ARCHITECT) Scanner OTHER * INR,POCT (11/05/2023) Only the most recent of8 resultswithin the time period is included. INR 2.6 [facility] Blood BLOOD SPECIMEN / Unknown 11/05/2023 Patient Reported LABORATORY [address] [address] * SCAN-OPERATIVE/PROCEDURE REPORT (10/30/2023 12:00 AM APPLICATION ARCHITECT) Scanner OTHER * XR CHEST 1 VIEW PORTABLE (10/25/2023 5:07 PM APPLICATION ARCHITECT) Anatomical Region Laterality Modality HEART, THORAX, CHEST Digital Rad iography 10/25/2023 6:03 PM APPLICATION ARCHITECT Impressions 10/25/2023 6:03 PM APPLICATION ARCHITECT 1. Right PICC line is present with the tip at the cavoatrial junction. Dictated by Gordy Malik MD @ 10/25/2023 6:03:07 PM Dictated by: Gordy Malik MD @ 10/25/2023 18:03:23 (Electronically Signed) Narrative 10/25/2023 6:03 PM APPLICATION ARCHITECT For Patients: ??As a result of the Cures Act, medical imaging exams and procedure reports are released immediately into your electronic medical record. ??You may view this report before your referring provider. ??If you have questions, please contact your health care provider. INDICATION: Line placement, PICC line placement TECHNIQUE: Chest radiograph 1 view on 4 films COMPARISON: 11/17/2021 FINDINGS: The sensitivity and specificity of the exam are moderately limited by the patient`s body habitus. Mediastinum: The mediastinum is normal in appearance. Mild cardiomegaly is noted without change. Right PICC line is present with the tip at the cavoatrial junction. Lung: Both lungs are unremarkable in appearance. No sign of pleural effusion seen. No pneumothorax is identified. Bone and Soft tissue: Small metallic screws are present in the paraspinal region near the thoracic inlet and the mid thoracic spine. Procedure Note Gordy Malik MD - 10/25/2023 For Patients: As a result of the s Act, medical imagingexams and procedure reports are released immediately into your electronicmedical record. You may view this report before your referring provider.If you have questions, please contact your health care provider. INDICATION: Line placement, PICC line placement TECHNIQUE: Chest radiograph 1 view on 4 films COMPARISON: 11/17/2021 FINDINGS: The sensitivity and specificity of the exam are moderatelylimited by the patient`s body habitus. Mediastinum: The mediastinum is normal in appearance. Mild cardiomegaly isnoted without change. Right PICC line is present with the tip at thecavoatrial junction. Lung: Both lungs are unremarkable in appearance. No sign of pleuraleffusion seen. No pneumothorax is identified. Bone and Soft tissue: Small metallic screws are present in the paraspinalregion near the thoracic inlet and the mid thoracic spine. IMPRESSION: 1. Right PICC line is present with the tip at the cavoatrial junction. Dictated by Gordy Malik MD @ 10/25/2023 6:03:07 PM Dictated by: Gordy Malik MD @ 10/25/2023 18:03:23 (Electronically Signed) Tania Snowden RN GENERAL IMAGING * SCAN-OPERATIVE/PROCEDURE REPORT (10/25/2023 12:00 AM APPLICATION ARCHITECT) Narrative 10/25/2023 12:00 AM APPLICATION ARCHITECT Ordered by an unspecified provider. Other Clinical Staff OTHER * SCAN-CT INTERPRETATION (10/23/2023 12:00 AM APPLICATION ARCHITECT) Anatomical Region Laterality Modality Other Scanner OTHER * LYME SCREEN W/REFLEX (08/18/2023 12:21 PM CDT) [facility] LYME SCREEN W/REFLEX Negative Negative 08/20/2023 8:44 AM CDT [facility] Comment: No laboratory evidence of infection with B. burgdorferi (Lyme disease). Negative results may occur in patients recently infected (less than or equal to 14 days) with B. burgdorferi. If recent infection is suspected, repeat testing on a new sample collected in 7-14 days is recommended. Blood BLOOD SPECIMEN / Unknown Venipuncture / Unknown 08/18/2023 12:21 PM CDT 08/18/2023 12:28 PM CDT Marimar Gillis MD [facility] [address] [place] [address], from Last 3 Months Additional Health Concerns Infection Onset Date Last Indicated MRSA Comment:Order contact precautions. 06/21/23 pt ineligible for d/c due to indwelling device Nares surveillance cultures needed to clear patient if <12 months since positive culture. If >12 months since positive culture, precautions can be discontinued if patient has no MRSA risk factors. 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/25/2020 urine, 05/31/2020 urine, 04/04/2020 urine 03/11/2018 R Buttock, 05/10/2019 buttock 01/05/2021 urine exclusions for contact precaution discontinuation (if > 12 months since positive culture): resides in acute/group home care, receiving hemodialysis, has chronic open wounds/skin damage, has long-term percutaneous indwelling medical devices Exclusions for nares collection (if <12 months since positive culture) include all of the previous exclusions plus patients on antibiotics 7 days prior to collection 03/13/2018 2023 Advance Directives Documents on File Type Date Recorded Patient Painter Tumbling Barrel Expl anation Healthcare Directive 05/09/2023 023 Healthcare Directive 05/09/2023 023 POLST 05/01/2017 12:00 AM Latest Code Status on File Code Status Date Activated Date Inactivated Comments Full Code 06/20/2023 10:17 PM 06/28/2023 1:56 PM Question Answer Comments Code Status Discussion: Reviewed Preferences Code Status History Code Status Date Activated Date Inactivated Comments Full Code 05/08/2023 4:16 AM 05/09/2023 3:45 PM Question Answer Comments Code Status Discussion: Reviewed Preferences Full Code 10/04/2021 5:52 AM 10/05/2021 4:30 PM Question Answer Comments Code Status Discussion: Reviewed Preferences Full Code 01/05/2021 8:12 PM 01/07/2021 1:23 PM Question Answer Comments Code Status Discussion: Per Existing Order Full Code 08/25/2020 5:57 PM 08/28/2020 1:56 PM Question Answer Comments Code Status Discussion: Per Existing Order Care Teams Childcare Teacher Relationship Specialty Start Date End Date Franklin Squires MD [address] [place] [address] PCP - General Family Practice 10/18/15 Zelalem Cohen MD Physical Therapist 03/13/12 May Randle MD Physical Medicine and Rehabilitation 03/13/12 Luana, FAUSTINO Krueger [address] [place] [address] Meteorology Instructor 05/03/17 Diane Charles MD [address] [place] [address] Surgery - Urology 01/17/23 Julia Ware, RN [address] [place] [address] Registered Nurse 07/17/23
--- OUTSIDE RECORDS SUMMARY | 2023-11-18 12:46 | XMS_ITS | Encounter Summary ---
Author Name Unknown Organization [facility] Address [address], [place] [address] Care Team Providers Care Hydroelectric Systems Technician Name Role Phone Franklin Squires MD Primary Care Provider Encounter Details Date Type Department Care Team Description 11/13/2012 Correspondence [facility] Radiology [address] [place] [address] Radiology, Provider MRI SAFETY SHEET AND COMPATIBILITY [...] documented as of this encounter Progress Notes * RADIOLOGY, PROVIDER - 11/13/2012 12:00 AM CST FACTURING ENGINEERING TECHNOLOGIST documented in this encounter Plan of Treatment Not on file documented as of this encounter Visit Diagnoses Not on filedocumented in this encounter Care Teams Hydroelectric Systems Technician Relationship Specialty Start Date End Date Franklni Squires MD 100 [facility] [place] [address] PCP - General Family Practice 03/08/16 documented as of this encounter
--- OUTSIDE RECORDS SUMMARY | 2023-11-18 12:46 | XMS_ITS | Encounter Summary ---
Author Name Unknown Organization [facility] Address [address], [place] [address] Care Team Providers Care Food Counselor Name Role Phone Franklin Squires MD Primary Care Provider Encounter Details Date Type Department Care Team Description 02/05/2014 Correspondence [facility] Physical Therapy [address] [place] [address] Trudi Raymundo, PT [address] [place] [address] LETTER OF MEDICAL NECESSITY FOR A WHEELCHAIR Social History Tobacco Use Types Packs/Day Years [...] on filedocumented in this encounter Care Teams Food Counselor Relationship Specialty Start Date End Date Franklin Squires MD 100 [facility] [place] [address] PCP - General Family Practice 03/08/16 documented as of this encounter
--- OUTSIDE RECORDS SUMMARY | 2023-11-18 12:46 | XMS_ITS | Encounter Summary ---
Author Name Unknown Organization [facility] Address [address] [place] [address] Care Team Providers Care Fire Control Assistant Name Role Phone Franklin Squires MD Primary Care Provider Encounter Details Date Type Department Care Team Description 09/17/2013 Correspondence External to External, [place] [address] EMPOWERMENT RULES Social History Tobacco Use Types Packs/Day Years [...] as of this encounter Progress Notes * External, Provider - 09/17/2013 12:00 AM CST ITY ASSURANCE INSPECTOR documented in this encounter Plan of Treatment Not on file documented as of this encounter Visit Diagnoses Not on filedocumented in this encounter Care Teams Fire Control Assistant Relationship Specialty Start Date End Date Franklin Squires MD 100 [facility] [place] [address] PCP - General Family Practice 03/08/16 documented as of this encounter
--- OUTSIDE RECORDS SUMMARY | 2023-11-18 12:46 | XMS_ITS | Encounter Summary ---
Author Name Unknown Organization [facility] Address [address] [address] Care Team Providers Care Sprue Knocker Name Role Phone Franklin Squires MD Primary Care Provider [phone] Encounter Details Date Type Department Care Team Description 09/07/2014 Correspondence [facility] Radiology [address] [place] [address] Radiology, Provider MRI SAFETY SHEET AND COMPATIBILITY [...] on filedocumented in this encounter Care Teams Sprue Knocker Relationship Specialty Start Date End Date Franklin Squires MD 100 [facility] [place] [address] PCP - General Family Practice 03/08/16 documented as of this encounter
--- OUTSIDE RECORDS SUMMARY | 2023-11-18 12:46 | XMS_ITS | Encounter Summary ---
Author Name Unknown Organization [facility] Address [address] [address] Care Team Providers Care Mails Supervisor Name Role Phone Franklin Squires MD Primary Care Provider [phone] Encounter Details Date Type Department Care Team Description 11/10/2014 Correspondence [facility] Physical Therapy [address] [place] [address] Trudi Raymundo, PT [address] [place] [address] LETTER OF MEDICAL NECESSITY Social History Tobacco [...] on filedocumented in this encounter Care Teams Mails Supervisor Relationship Specialty Start Date End Date Franklin Squires MD 100 [facility] [place] [address] PCP - General Family Practice 03/08/16 documented as of this encounter
--- OUTSIDE RECORDS SUMMARY | 2023-11-18 12:46 | XMS_ITS | Encounter Summary ---
Author Name Unknown Organization [facility] Address [address], [place] [address] Care Team Providers Care All Around Presser Name Role Phone Franklin Squires MD Primary Care Provider [phone] Encounter Details Date Type Department Care Team Description 07/28/2014 Outside Hospital External to External, Provider No address [address] ER VISIT/TRANSFER Social History Tobacco Use Types Packs/Day Years [...] on filedocumented in this encounter Care Teams All Around Presser Relationship Specialty Start Date End Date Franklin Squires MD [address] [place] [address] [place] [address] PCP - General Family Practice 03/08/16 documented as of this encounter
--- OUTSIDE RECORDS SUMMARY | 2023-11-18 12:46 | XMS_ITS | Encounter Summary ---
Author Name Unknown Organization [facility] Address [address] [address] Care Team Providers Care Registered Nurse Surgical Services Name Role Phone Franklin Squires MD Primary Care Provider Encounter Details Date Type Department Care Team Description 04/20/2013 Correspondence [facility] Radiology [address] [place] [address] Radiology, Provider MRI SAFETY SHEET AND COMPATIBILITY [...] encounter Progress Notes * RADIOLOGY, PROVIDER - 04/20/2013 12:00 AM CDT documented in this encounter Plan of Treatment Not on file documented as of this encounter Visit Diagnoses Not on filedocumented in this encounter Care Teams Registered Nurse Surgical Services Relationship Specialty Start Date End Date Franklin Squires MD 100 [facility] [place] [address] PCP - General Family Practice 03/08/16 documented as of this encounter
--- OUTSIDE RECORDS SUMMARY | 2023-11-18 12:46 | XMS_ITS | Encounter Summary ---
Author Name Unknown Organization [facility] Address [address] [place] [address] Care Team Providers Care Vat House Laborer Name Role Phone Franklin Squires MD Primary Care Provider [phone] Encounter Details Date Type Department Care Team Description 10/26/2013 Correspondence [facility] Physical Therapy [address] [place] [address] Trudi Raymundo, PT [address] [place], [place] [id number] LETTER OF MEDICAL NECESSITY Social History Tobacco [...] as of this encounter Progress Notes * Trudi Raymundo, PT - 10/26/2013 12:00 AM CST ENT RELATIONS COORDINATOR documented in this encounter Plan of Treatment Not on file documented as of this encounter Visit Diagnoses Not on filedocumented in this encounter Care Teams Vat House Laborer Relationship Specialty Start Date End Date Franklin Squires MD [address] [facility] [place] [address] PCP - General Family Practice 03/08/16 documented as of this encounter
--- OUTSIDE RECORDS SUMMARY | 2023-11-18 12:46 | XMS_ITS | Encounter Summary ---
Author Name Unknown Organization [facility] Address [address] [place] [address] Care Team Providers Care Probate Clerk Name Role Phone Franklin Squires MD Primary Care Provider Encounter Details Date Type Department Care Team Description 04/08/2013 Scanned History External to Transferred Record, Provider COLON AND RECTAL SURGERY Social History Tobacco Use Types Packs/Day [...] as of this encounter Progress Notes * Transferred Record, Provider - 04/08/2013 12:00 AM CDT documented in this encounter Plan of Treatment Not on file documented as of this encounter Visit Diagnoses Not on filedocumented in this encounter Care Teams Probate Clerk Relationship Specialty Start Date End Date Franklin Squires MD 100 [facility] [place] [address] PCP - General Family Practice 03/08/16 documented as of this encounter
--- OUTSIDE RECORDS SUMMARY | 2023-11-18 12:46 | XMS_ITS | Encounter Summary ---
Author Name Unknown Organization [facility] Address [address] [place] [address] Care Team Providers Care Horse Trader Name Role Phone Franklin Squires MD Primary Care Provider Encounter Details Date Type Department Care Team Description 06/04/2014 [facility] 401 Interventional Pain Management 401 [facility] [place] [address] Zelalem Cohen, DO [address] [place] [address] MEDICAID PT INFORMATION EMPI RECOVERY Social History Tobacco Use Types Packs/Day Years [...] on filedocumented in this encounter Care Teams Horse Trader Relationship Specialty Start Date End Date Franklin Squires MD 100 [facility] [place] [address] PCP - General Family Practice 03/08/16 documented as of this encounter
--- OUTSIDE RECORDS SUMMARY | 2023-11-18 12:46 | XMS_ITS | Encounter Summary ---
Author Name Unknown Organization [facility] Address [address] [place] [address] Care Team Providers Care Snowmobile Mechanic Name Role Phone Franklin Squires MD Primary Care Provider Encounter Details Date Type Department Care Team Description 08/20/2014 Outside Hospital External to [facility]-H/P Social History Tobacco Use Types [...] on filedocumented in this encounter Care Teams Snowmobile Mechanic Relationship Specialty Start Date End Date Franklin Squires MD 100 [facility] [address] PCP - General Family Practice 03/08/16 documented as of this encounter
--- OUTSIDE RECORDS SUMMARY | 2023-11-18 12:46 | XMS_ITS | Encounter Summary ---
Author Name Unknown Organization [facility] Address [address] [place] [address] Care Team Providers Care Nuclear Control Room Operator Name Role Phone Franklin Squires MD Primary Care Provider [phone] Encounter Details Date Type Department Care Team Description 07/23/2013 Correspondence [facility] 401 Interventional Pain Management 401 [place] [address] Zelalem Cohen DO [address] [place] [address] [employer] S[employer] Social History Tobacco Use Types Packs/Day Years [...] as of this encounter Progress Notes * Zelalem Cohen MD - 07/23/2013 12:00 AM CDT RVISOR DRIED YEAST documented in this encounter Plan of Treatment Not on file documented as of this encounter Visit Diagnoses Not on filedocumented in this encounter Care Teams Nuclear Control Room Operator Relationship Specialty Start Date End Date Franklin Squires MD [address] [place] [address] PCP - General Family Practice 03/08/16 documented as of this encounter
--- OUTSIDE RECORDS SUMMARY | 2023-11-18 12:46 | XMS_ITS | Encounter Summary ---
Author Name Unknown Organization [facility] Address [address] [address] Care Team Providers Care Machine Welder Name Role Phone Franklin Squires MD Primary Care Provider Encounter Details Date Type Department Care Team Description 04/24/2012 Correspondence [facility] Radiology [address] [place] [address] Radiology, Provider MRI SAFETY SHEET AND COMPATIBILITY [...] encounter Progress Notes * RADIOLOGY, PROVIDER - 04/24/2012 12:00 AM CDT documented in this encounter Plan of Treatment Not on file documented as of this encounter Visit Diagnoses Not on filedocumented in this encounter Care Teams Machine Welder Relationship Specialty Start Date End Date Franklin Squires MD 100 [facility] [place] [address] PCP - General Family Practice 03/08/16 documented as of this encounter
--- OUTSIDE RECORDS SUMMARY | 2023-11-18 12:46 | XMS_ITS | Encounter Summary ---
Author Name Unknown Organization [facility] Address [address] [address] Care Team Providers Care Wind Farm Electrical Systems Designer Name Role Phone Franklin Squires MD Primary Care Provider Encounter Details Date Type Department Care Team Description 06/11/2014 Correspondence [facility] 401 Physical Medicine 401 [facility] [place] [address] May Randle MD [address] [place] [address] [facility] Social History Tobacco Use Types Packs/Day [...] filedocumented in this encounter Care Teams Wind Farm Electrical Systems Designer Relationship Specialty Start Date End Date Franklin Squires MD 100 [facility] [place] [address] PCP - General Family Practice 03/08/16 documented as of this encounter
--- OUTSIDE RECORDS SUMMARY | 2023-11-18 12:46 | XMS_ITS | Encounter Summary ---
Author Name Unknown Organization [facility] Address [address] [place] [address] Care Team Providers Care Hybrid Car Mechanic Name Role Phone Franklin Squires MD Primary Care Provider Encounter Details Date Type Department Care Team Description 07/28/2014 Consent for Procedure/Treatment Regions Department INFORMED CONSENT [...] on filedocumented in this encounter Care Teams Hybrid Car Mechanic Relationship Specialty Start Date End Date Franklin Squires MD [address] [place], [place] [address] [address] PCP - General Family Practice 03/08/16 documented as of this encounter
--- OUTSIDE RECORDS SUMMARY | 2023-11-18 12:46 | XMS_ITS | Encounter Summary ---
Author Name Unknown Organization [facility] Address [address] [place] [address] Care Team Providers Care Small Business Consultant Name Role Phone Franklin Squires MD Primary Care Provider [phone] Encounter Details Date Type Department Care Team Description 08/22/2014 Outside [address] External to [facility] HOSP-D/C SUMMARY Social History Tobacco Use Types [...] on filedocumented in this encounter Care Teams Small Business Consultant Relationship Specialty Start Date End Date Franklin Squires MD 100 [facility] [place] [address] PCP - General Family Practice 03/08/16 documented as of this encounter
--- OUTSIDE RECORDS SUMMARY | 2023-11-18 12:46 | XMS_ITS | Encounter Summary ---
Author Name Unknown Organization [facility] Address [address] [address] Care Team Providers Care Retail Coordinator Name Role Phone Franklin Squires MD Primary Care Provider Encounter Details Date Type Department Care Team Description 03/11/2014 Correspondence [facility] 401 Interventional Pain Management 401 [facility] [place] [address] Zelalem Cohen, DO [address] [place] [address] EMPI Social History Tobacco Use Types Packs/Day Years [...] on filedocumented in this encounter Care Teams Retail Coordinator Relationship Specialty Start Date End Date Franklin Squires MD 100 [facility] [place] [address] PCP - General Family Practice 03/08/16 documented as of this encounter
--- OUTSIDE RECORDS SUMMARY | 2023-11-18 12:46 | XMS_ITS | Encounter Summary ---
Author Name Unknown Organization [facility] Address [address], [place] [address] Care Team Providers Care Flight Nurse Name Role Phone Franklin Squires MD Primary Care Provider [phone] Encounter Details Date Type Department Care Team Description 12/16/[address] [facility] Radiology [address] [place] [id number] Radiology, Provider MRI SAFETY SHEET AND COMPATIBILITY [...] as of this encounter Progress Notes * Radiology, Provider - 12/16/2013 12:00 AM CST ION CONSULTANT documented in this encounter Plan of Treatment Not on file documented as of this encounter Visit Diagnoses Not on filedocumented in this encounter Care Teams Flight Nurse Relationship Specialty Start Date End Date Franklin Squires MD [address] [facility] [place] [address] PCP - General Family Practice 03/08/16 documented as of this encounter
--- OUTSIDE RECORDS SUMMARY | 2023-11-18 12:46 | XMS_ITS | Encounter Summary ---
Author Name Unknown Organization [facility] Address [address] [address] Care Team Providers Care Spud Sorter Name Role Phone Franklin Squires MD Primary Care Provider Encounter Details Date Type Department Care Team Description 05/04/2014 [facility] Physical Medicine [address] [facility]. [place], [place] [id number] May Randle MD [address] [place] [address] LETTER OF MEDICAL NECESSITY FOR A WHEELCHAIR [...] on filedocumented in this encounter Care Teams Spud Sorter Relationship Specialty Start Date End Date Franklin Squires [facility] [address] [facility] [place] [address] PCP - General Family Practice 03/08/16 documented as of this encounter
--- OUTSIDE RECORDS SUMMARY | 2023-11-18 12:46 | XMS_ITS | Encounter Summary ---
Author Name Unknown Organization [facility] Address [address] [place] [address] Care Team Providers Care Ruching Machine Operator Name Role Phone Franklin Squires MD Primary Care Provider Encounter Details Date Type Department Care Team Description 01/08/2013 Scanned History External to Transferred Record, Provider [facility] Social History Tobacco Use Types Packs/Day Years [...] Progress Notes * Transferred Record, Provider - 01/08/2013 12:00 AM CST documented in this encounter Plan of Treatment Not on file documented as of this encounter Visit Diagnoses Not on filedocumented in this encounter Care Teams Ruching Machine Operator Relationship Specialty Start Date End Date Franklin Squires MD [address] [facility] [place] [address] PCP - General Family Practice 03/08/16 documented as of this encounter
--- OUTSIDE RECORDS SUMMARY | 2023-11-18 12:46 | XMS_ITS | Encounter Summary ---
Author Name Unknown Organization [facility] Address [address] [place] [address] Care Team Providers Care In Store Marketing Representative Name Role Phone Franklin Squires MD Primary Care Provider [phone] Encounter Details Date Type Department Care Team Description 08/20/2014 Outside Hospital External to [facility] Social History Tobacco Use Types [...] on filedocumented in this encounter Care Teams In Store Marketing Representative Relationship Specialty Start Date End Date Franklin Squires MD [address] [facility] [place] [address] PCP - General Family Practice 03/08/16 documented as of this encounter
--- OUTSIDE RECORDS SUMMARY | 2023-11-18 12:46 | XMS_ITS | Encounter Summary ---
Author Name Unknown Organization [facility] Address [address], [place] [address] Care Team Providers Care Artillery Meteorological Man Name Role Phone Franklin Squires MD Primary Care Provider [phone] Encounter Details Date Type Department Care Team Description 12/14/2014 [facility] 401 Physical Medicine [address] [facility] [place] [address] May Randle MD [address] [place] [address] DETAILED PRODUCT DESCRIPTION Social History Tobacco Use Types Packs/Day Years [...] on filedocumented in this encounter Care Teams Artillery Meteorological Man Relationship Specialty Start Date End Date Franklin Squires MD [address] [facility] [place] [address] PCP - General Family Practice 03/08/16 documented as of this encounter
[2023-11-18 15:13] LABS: Basophils Absolute Auto 0.02 K/uL (0.00-0.30); Basophils Percent Auto 0.3 % (0.0-3.0); Eosinophils Absolute Auto 0.18 K/uL (0.00-0.50); Eosinophils Percent Auto 2.3 % (0.0-7.0); Hematocrit 37.8 % (37.0-53.0); Hemoglobin* 11.9 gm/dL (13.5-17.5); Immature Granulocytes Abs Auto 0.03 K/uL (0.00-0.30); Immature Granulocytes Pct Auto 0.4 %; Lymphocytes Absolute Auto 1.83 K/uL (0.90-2.90); Lymphocytes Percent Auto 23.3 % (20-44); Mean Corpuscular HGB Conc 32 gm/dL (32-36); Mean Corpuscular Hemoglobin 29 pg (26-34); Mean Corpuscular Volume 91 fL (80-100); Monocytes Percent Auto 12.5 % (0.0-11.0); Neutrophils Absolute Auto 4.83 K/uL (1.7-7.0); Neutrophils Percent Auto 61.2 % (42.0-72.0); Platelet Count* 236 K/uL (140-440); RDW Coefficient of Variation % 14.5 % (11.5-15.5); Red Blood Count 4.16 m/uL (4.30-5.90); White Blood Count* 7.87 K/uL (4.50-11.00)
[2023-11-18 15:14] LABS: Slide Review Reflex No
[2023-11-18 15:21] LABS: Albumin* 4.2 g/dL (3.3-5.0); Chloride* 100 mmol/L (96-114)
[2023-11-18 15:22] LABS: Potassium* 4.1 mmol/L (3.6-5.1); Sodium* 138 mmol/L (135-149)
[2023-11-18 15:24] LABS: Anion Gap 5 mEq/L (7-15); Aspartate Amino Transferase* 34 U/L (12-35); Bilirubin Total* 0.4 mg/dL (0.1-1.5); Carbon Dioxide* 33 mmol/L (20-32); Creatinine* 0.6 mg/dL (0.5-1.5); Estimated Glomerular Filt Rate 99 ml/min
[2023-11-18 15:25] LABS: Alanine Aminotransferase* 46 U/L (4-50); Alkaline Phosphatase* 173 U/L (40-150); Blood Urea Nitrogen* 16 mg/dL (7-30); Calcium* 8.7 mg/dL (8.4-10.6); Creatine Kinase* 39 U/L (54-186); Glucose* 90 mg/dL (60-115); Total Protein* 7.6 g/dL (6.0-8.3)
== END 2023-11-18 12:41 | disposition home or self-care (01) ==
LOC: WOUND 12:40
PROVIDERS: PCP Family Medicine; Visit Provider Nurse Practitioner Family
DX: L89.324 Pressure ulcer of left buttock, stage 4 (principal); L03.317 Cellulitis of buttock; E11.622 Type 2 diabetes mellitus with other skin ulcer; M86.18 Other acute osteomyelitis, other site; G82.50 Quadriplegia, unspecified
CPT/HCPCS: 11044; 36415; 80053; 82550; 85025; 97605

== ENCOUNTER 2023-11-25 11:11 | Outpatient (CLI) | payer MEDICARE, OTHER, SELFPAY ==
--- OUTSIDE RECORDS SUMMARY | 2023-11-25 11:13 | XMS_ITS | Continuity of Care Document ---
Author Name [facility] Organization [facility] Care Team Providers Care Spindle Sander Name Role Phone [facility] Unavailable Unavailable Problems Combined list of problems from 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 It does not include entries that were removed or entered in error. Problem Status Onset Date Problem Type Date of Resolution Comments Source Abnormal liver function Active Condition [facility] Anemia ([facility] 173122033) Active Condition [facility] Anxiety ([facility] 16581953) Active Condition [facility] Autonomic dysreflexia Active Condition [facility] Chronic Pain Syndrome ([facility] 222471175) Active Condition [facility] Colostomy present Active Condition [facility] Constipation ([facility] 79893882) Active Condition [facility] Continuous opioid dependence Active Condition [facility] COPD - Chronic Obstructive Pulmonary Disease ([facility] 67349270) Active Condition [facility] Dementia Active Condition [facility] Depression ([facility] 53058751) Active Condition [facility] Diabetes Mellitus Type 2 (SCT 49100190) Active Condition [facility] Ependymoma of spinal cord Active Condition [facility] Hearing Loss ([facility] 76576018) Active Condition [facility] History of Deep Vein Thrombosis ([facility] 033927361) Active Condition [facility] History of pressure injury Active Condition [facility] HTN - Hypertension (S[facility] 96476328) Active Condition [facility] Hyperlipidemia ([facility] 02349219) Active Condition [facility] Hyponatremia Active [facility] Long-term current use of anticoagulant Active Condition [facility] Neurogenic Bladder ([facility] 729661225) Active Condition [facility] Neurogenic bowel Active Condition [facility] Osteoporosis ([facility] 29051703) Active Condition [facility] Paraplegia Active Condition [facility] Spasticity Active Condition [facility] Suprapubic urinary catheter in situ Active Condition [facility] Supraventricular tachycardia Active Condition [facility] Tinnitus ([facility] 71462013) Active Condition [facility] Vitamin D Deficiency ([facility] 4877654) Active Condition [facility] Diagnosis: ICD-10-CM Z73.6 Limitation of activities due to disability Active Diagnosis [facility] Diagnosis: ICD-10-CM G82.20 Paraplegia, unspecified Active Diagnosis [facility] Diagnosis: ICD-10-CM Z43.3 Encounter for attention to colostomy Active Diagnosis [facility] Diagnosis: ICD-10-CM Z71.3 Dietary counseling and surveillance Active Diagnosis [facility] Diagnosis: ICD-10-CM F32.A Depression, unspecified Active Diagnosis [facility] Diagnosis: ICD-10-CM R26.9 Unspecified abnormalities of gait and mobility Active Diagnosis [facility] Diagnosis: ICD-10-CM R54 Age-related physical debility Active Diagnosis [facility] Diagnosis: ICD-10-CM C72.0 Malignant neoplasm of spinal cord Active Diagnosis [facility] Medications Combined list of outpatient medications from [...] DAY NEEDED ORALLY ACTIVE Jagdish BARRETT 2022 [facility] AMLODIPINE BESYLATE (AMLODIPINE BESYLATE), 5 MG, TABLET, ORAL, [employer] 1000 ea. BOTTLE Active [id number] 2023 Pharmac y Data Trans[employer] tion Service Facilit y AMLODIPINE BESYLATE 2.5MG TAB TAKE TWO TABLETS BY MOUTH EVERY MORNING ORALLY ACTIVE Jagdish BARRETT 2022 [facility] AMOX TR-POTASSIU M CLAVULANATE (AMOXICILLI N/POTASSIUM CLAV), 875-125 MG, TABLET, ORAL, [employer], 20 ea. BOTTLE Active [id number] 2022 Pharmac y Data Transac tion Service Facilit y AMOXICILLIN -CLAVULANAT E POTASS (amoxicilli n/potassium clavulanate ), 875-125 MG, TABLET, ORAL, [employer] [facility],, 20 ea. BOTTLE Active [id number] 2023 Pharmac y Data Transac tion Service Facilit y ARIPIPRAZOL E TAB TAKE 2MG BY MOUTH TWICE A DAY ORALLY ACTIVE Jey HANSON 2021 [facility] ATORVASTATI N [place] 80MG TAB TAKE ONE-HALF TABLET BY MOUTH EVERY DAY ORALLY ACTIVE Jey HANSON 2021 [facility] BACLOFEN 20MG TAB TAKE TWO TABLETS BY MOUTH THREE TIMES A DAY ORALLY ACTIVE Jagdish BARRETT 2022 [facility] BUPROPION HCL 150MG 12HR TAB,SA TAKE ONE TABLET BY MOUTH TWICE A DAY ORALLY ACTIVE Jey HANSON 2021 [facility] CEPHALEXIN 250MG CAP TAKE 1 CAPSULE BY MOUTH EVERY DAY ORALLY ACTIVE Jey HANSON 2021 [facility] CHOLECALCIF GILSON 25MCG (1,000UNIT) TAB TAKE ONE TABLET BY MOUTH EVERY DAY ORALLY ACTIVE Jey HANSON 2021 [facility] CIPROFLOXAC IN HCL (CIPROFLOXA SHAR HCL), 750 MG, TABLET, ORAL, [employer], 50 ea. BOTTLE Active [id number] 2023 Pharmac y [facility] t[employer] Service [facility]ilit y DONEPEZIL HCL 10MG TAB TAKE ONE-HALF TABLET BY MOUTH EVERY DAY ORALLY ACTIVE Jey HANSON 2021 [facility] DULOXETINE HCL 30MG CAP,EC TAKE 2 CAPSULES BY MOUTH TWICE A DAY ORALLY ACTIVE Jey HANSON 2021 [facility] FAMOTIDINE 20MG TAB TAKE ONE TABLET BY MOUTH TWICE A DAY ORALLY ACTIVE Jey HANSON 2021 [facility] FUROSEMIDE 40MG TAB TAKE ONE TABLET BY MOUTH TWICE A DAY ORALLY ACTIVE Jey HANSON 2021 [facility] GABAPENTIN 400MG CAP TAKE 1 CAPSULE BY MOUTH THREE TIMES A DAY ORALLY ACTIVE Jey HANSON 2021 [facility] LORAZEPAM 0.5MG TAB TAKE ONE TABLET BY MOUTH THREE TIMES A DAY AND TAKE TWO TABLETS BY MOUTH AT BEDTIME ORALLY ACTIVE Jagdish BARRETT N 2022 [facility] MILK OF MAGNESIA TAKE 30ML BY MOUTH EVERY DAY NEEDED ORALLY ACTIVE Jey HANSON 2021 [facility] MULTIVITAMI NS CAP/TAB TAKE ONE TABLET BY MOUTH EVERY DAY ORALLY ACTIVE Jey HANSON 2021 [facility] NALOXONE HCL 4MG/SPRAY SOLN,SPRAY, NASAL SPRAY 1 DOSE IN ONE NOSTRIL DIRECTED PRN NOSTRI L ACTIVE Jagdish BARRETT N 2022 [facility] OXYCODONE HCL (OXYCODONE HCL), 10 MG, TABLET, ORAL, [employer] 100 ea. BOTTLE Active [id number] 2022 Pharmac y Data Trans[employer] t[employer] Service [employer]ilit y OXYCODONE HCL 5MG TAB TAKE TWO TABLETS BY MOUTH FOUR TIMES A DAY ORALLY ACTIVE Jagdish BARRETT 2022 [facility] POTASSIUM CHLORIDE (potassium chloride), 20 MEQ, TAB ER PRT, ORAL, [employer], 100 ea. BOTTLE Cancele d [id number] : 2022 Pharmac y Data Trans[employer] tion Service Facilit y POTASSIUM CHLORIDE 20MEQ TAB,SA (DISPERSIBL E) TAKE ONE TABLET BY MOUTH TWICE A DAY ORALLY ACTIVE Jey HANSON 2021 [facility] WARFARIN SODIUM (warfarin sodium), 5 MG, TABLET, ORAL, [employer] 1000 ea. BOTTLE Cancele d [id number] : 2022 Pharmac y Data Transac tion Service Facilit y WARFARIN SODIUM (WARFARIN SODIUM), 5 MG, TABLET, ORAL, [facility], 1000 ea. BOTTLE Active [id number] 2023 Pharmac y Data Transac tion Service Facilit y WARFARIN SODIUM (WARFARIN SODIUM), 5 MG, TABLET, ORAL, [employer], 1000 ea. BOTTLE Cancele d [id number] : 2022 Pharmac y Data Transac tion Service Facilit y WARFARIN SODIUM (warfarin sodium), 7.5 MG, TABLET, ORAL, [employer], 100 ea. BOTTLE Active [id number] 2023 Pharmac y Data Trans[employer] tion Service Facilit y WARFARIN TAB TAKE 5MG BY MOUTH SUN/THUR S AND TAKE 7.5MG BY MOUTH ALL OTHER DAYS ORALLY ACTIVE Jagdish BARRETT 2022 [facility] Allergies, Adverse Reactions, Alerts Combined list of allergies from Department of [facility] and [facility] facilities. It does not include entries that were removed or entered in error. Substance Category Reaction Severity Reaction type Status Date Reported Comments Source AMOXICILLIN Propensity to adverse reactions to drug (finding) Eruption active 2 [facility] METOLAZONE Propensity to adverse reactions to drug (finding) Itching active 2 [facility] MORPHINE Propensity to adverse reactions to drug (finding) Delirium active 2 [facility] PIPERACILLIN Propensity to adverse reactions to drug (finding) Eruption active 2 [facility] SULFA DRUGS Propensity to adverse reactions to drug (finding) Eruption active 2 [facility] TAZOBACTAM SODIUM Propensity to adverse reactions to drug (finding) Eruption active 2 [facility] Immunizations Combined list of available immunizations from the Department of [facility] and [facility] facilities. Immunization Series Date Given Administered By Site Reaction Lot Number CVX Code Drug Mold Cooler Status Comments Source INFLUENZA, UNSPECIFIED FORMULATION 2021 88 complet ed Hope's recall [facility] TD (ADULT), 5 LF TETANUS TOXOID, PRESERVATIVE FREE, ADSORBED 2021 113 complet ed [facility] INFLUENZA, UNSPECIFIED FORMULATION 2020 88 complet ed [facility] COVID-19 (PFIZER), MRNA, LNP-S, PF, 30 MCG/0.3 ML DOSE 3 2020 208 complet ed [facility] COVID-19 (PFIZER), MRNA, LNP-S, PF, 30 MCG/0.3 ML DOSE 2 2020 208 complet ed [facility] COVID-19 (PFIZER), MRNA, LNP-S, PF, 30 MCG/0.3 ML DOSE 1 2020 208 complet ed [facility] PNEUMOCOCCAL CONJUGATE PCV 13 2014 133 complet ed [facility] ZOSTER LIVE 2012 121 complet ed [facility] PNEUMOCOCCAL POLYSACCHARID E PPV23 2010 33 complet ed [facility] TDAP 2010 115 complet ed [facility] Results Combined list of recent chemistry, hematology [...] Feb 05, 2023 03:10 PM Reporting Lab: [facility] [address] Performing Lab: [facility] [address] [facility] CYSTATIN C WITH EGFR CYSTATIN C AND GLOMERULAR FILTRATION RATE BY CYSTATIN C-BASED FORMULA PANEL - SERUM OR PLASMA 53 60 02/13 L Specimen Type: PLASMA No comment entered. Ordering Provider: ANKUSH BOWMAN Report Released Date/Time: Feb 05, 2023 03:10 PM Reporting Lab: [facility] [address] Performing Lab: [facility] [address] [facility] BASIC METABOLI C PANEL+MG CREATININE [MASS/VOLU ME] IN SERUM OR PLASMA 0.7 0.7 - 1.2 02/13 Specimen Type: PLASMA No comment entered. Ordering Provider: ANKUSH BOWMAN Report Released Date/Time: Feb 05, 2023 03:10 PM Reporting Lab: [facility] [address] Performing Lab: [facility] [address] [place] [facility] BASIC METABOLI C PANEL+MG UREA NITROGEN [MASS/VOLU ME] IN SERUM OR PLASMA 15 8 - 26 02/13 Specimen Type: PLASMA No comment entered. Ordering Provider: ANKUSH BOWMAN Report Released Date/Time: Feb 05, 2023 03:10 PM Reporting Lab: [facility] [address] Performing Lab: [facility] [address] [place] [facility] BASIC METABOLI C PANEL+MG GLUCOSE [MASS/VOLU ME] IN SERUM OR PLASMA 140 70 - 100 02/13 H Specimen Type: PLASMA No comment entered. Ordering Provider: ANKUSH BOWMAN Report Released Date/Time: Feb 05, 2023 03:10 PM Reporting Lab: [facility] [address] Performing Lab: [facility] [address] [place] [facility] BASIC METABOLI C PANEL+MG SODIUM [MOLES/VOL UME] IN SERUM OR PLASMA 135 136 - 145 02/13 L Specimen Type: PLASMA No comment entered. Ordering Provider: ANKUSH BOWMAN Report Released Date/Time: Feb 05, 2023 03:10 PM Reporting Lab: [facility] [address] Performing Lab: [facility] [address] [place] [facility] BASIC METABOLI C PANEL+MG POTASSIUM [MOLES/VOL UME] IN SERUM OR PLASMA 4.0 3.5 - 5.1 02/13 Specimen Type: PLASMA No comment entered. Ordering Provider: ANKUSH BOWMAN Report Released Date/Time: Feb 05, 2023 03:10 PM Reporting Lab: [facility] [address] Performing Lab: [facility] [address] [place] [facility] BASIC METABOLI C PANEL+MG CHLORIDE [MOLES/VOL UME] IN SERUM OR PLASMA 99 98 - 107 02/13 Specimen Type: PLASMA No comment entered. Ordering Provider: ANKUSH BOWMAN Report Released Date/Time: Feb 05, 2023 03:10 PM Reporting Lab: [facility] [address] Performing Lab: [facility] [address] [place] [facility] BASIC METABOLI C PANEL+MG CARBON DIOXIDE, TOTAL [MOLES/VOL UME] IN SERUM OR PLASMA - 02/13 Specimen Type: PLASMA No comment entered. Ordering Provider: ANKUSH BOWMAN Report Released Date/Time: Feb 05, 2023 03:10 PM Reporting Lab: [facility] [address] Performing Lab: [facility] [address] [place] [facility] BASIC METABOLI C PANEL+MG CALCIUM [MASS/VOLU ME] IN SERUM OR PLASMA 9.2 8.4 - 10.2 02/13 Specimen Type: PLASMA No comment entered. Ordering Provider: ANKUSH BOWMAN Report Released Date/Time: Feb 05, 2023 03:10 PM Reporting Lab: [facility] [address] Performing Lab: [facility] [address] [place] [facility] BASIC METABOLI C PANEL+MG MAGNESIUM [MASS/VOLU ME] IN SERUM OR PLASMA 2.0 1.6 - 2.6 02/13 Specimen Type: PLASMA No comment entered. Ordering Provider: ANKUSH BOWMAN Report Released Date/Time: Feb 05, 2023 03:10 PM Reporting Lab: [facility] [address] Performing Lab: [facility] [address] [place] [facility] BASIC METABOLI C PANEL+MG ANION GAP IN SERUM OR PLASMA 7 5 - 15 02/13 Specimen Type: PLASMA No comment entered. Ordering Provider: ANKUSH BOWMAN Report Released Date/Time: Feb 05, 2023 03:10 PM Reporting Lab: [facility] [address] Performing Lab: [facility] [address] [place] [facility] BASIC METABOLI C PANEL+MG GLOMERULAR FILTRATION RATE/1.73 SQ M.PREDICTE D [VOLUME RATE/AREA] IN SERUM, PLASMA OR BLOOD BY CREATININE -BASED FORMULA (CKD-EPI) >90 60 02/13 Specimen Type: PLASMA No comment entered. Ordering Provider: ANKUSH BOWMAN Report Released Date/Time: Feb 05, 2023 03:10 PM Reporting Lab: [facility] [address] Performing Lab: [facility] [address] [place] [facility] URINALYS IS COLOR OF URINE YELLOW 10/08 Specimen Type: URINE No comment entered. Ordering Provider: ANKUSH BOWMAN Report Released Date/Time: Sep 24, 2022 01:55 PM Reporting Lab: [facility] [address] Performing Lab: [facility] [address] [place] [facility] URINALYS IS SPECIFIC GRAVITY OF URINE 1.023 1.003 - 1.035 10/08 Specimen Type: URINE No comment entered. Ordering Provider: ANKUSH BOWMAN Report Released Date/Time: Sep 24, 2022 01:55 PM Reporting Lab: [facility] [address] Performing Lab: [facility] [address] [place] [facility] URINALYS IS BILIRUBIN. TOTAL [PRESENCE] IN URINE BY TEST STRIP NEGATIVE 10/08 Specimen Type: URINE No comment entered. Ordering Provider: ANKUSH BOWMAN Report Released Date/Time: Sep 24, 2022 01:55 PM Reporting Lab: [facility] [address] Performing Lab: [facility] [address] [place] [facility] URINALYS IS KETONES [MASS/VOLU ME] IN URINE BY TEST STRIP NEGATIVE 10/08 Specimen Type: URINE No comment entered. Ordering Provider: ANKUSH BOWMAN Report Released Date/Time: Sep 24, 2022 01:55 PM Reporting Lab: [facility] [address] Performing Lab: [facility] [address] [place] [facility] URINALYS IS GLUCOSE [MASS/VOLU ME] IN URINE BY TEST STRIP NEGATIVE 10/08 Specimen Type: URINE No comment entered. Ordering Provider: ANKUSH BOWMAN Report Released Date/Time: Sep 24, 2022 01:55 PM Reporting Lab: [facility] [address] Performing Lab: [facility] [address] [place] [facility] URINALYS IS PROTEIN [MASS/VOLU ME] IN URINE BY TEST STRIP 30 10/08 Specimen Type: URINE No comment entered. Ordering Provider: ANKUSH BOWMAN Report Released Date/Time: Sep 24, 2022 01:55 PM Reporting Lab: [facility] [address] Performing Lab: [facility] [address] [place] [facility] URINALYS IS PH OF URINE BY TEST STRIP 7.5 5.0 - 8.0 10/08 Specimen Type: URINE No comment entered. Ordering Provider: ANKUSH BOWMAN Report Released Date/Time: Sep 24, 2022 01:55 PM Reporting Lab: [facility] [address] Performing Lab: [facility] [address] [place] [facility] URINALYS IS LEUKOCYTES [#/AREA] IN URINE SEDIMENT BY MICROSCOPY HIGH POWER FIELD >180 0 - 7 10/08 H Specimen Type: URINE No comment entered. Ordering Provider: ANKUSH BOWMAN Report Released Date/Time: Sep 24, 2022 01:55 PM Reporting Lab: [facility] [address] Performing Lab: [facility] [address] [place] [facility] URINALYS IS BACTERIA [PRESENCE] IN URINE SEDIMENT BY LIGHT MICROSCOPY MANY 10/08 Specimen Type: URINE No comment entered. Ordering Provider: ANKUSH BOWMAN Report Released Date/Time: Sep 24, 2022 01:55 PM Reporting Lab: [facility] [address] Performing Lab: [facility] [address] [place] [facility] URINALYS IS ERYTHROCYT ES [#/AREA] IN URINE SEDIMENT BY MICROSCOPY HIGH POWER FIELD 33 0 - 3 10/08 H Specimen Type: URINE No comment entered. Ordering Provider: ANKUSH BOWMAN Report Released Date/Time: Sep 24, 2022 01:55 PM Reporting Lab: [facility] [address] Performing Lab: [facility] [address] [place] [facility] URINALYS IS APPEARANCE OF URINE EX.TURBI D 10/08 Specimen Type: URINE No comment entered. Ordering Provider: ANKUSH BOWMAN Report Released Date/Time: Sep 24, 2022 01:55 PM Reporting Lab: [facility] [address] Performing Lab: [facility] [address] [place] [facility] URINALYS IS EPITHELIAL CELLS.SQUA MOUS [#/AREA] IN URINE SEDIMENT BY MICROSCOPY HIGH POWER FIELD 1 10/08 Specimen Type: URINE No comment entered. Ordering Provider: ANKUSH BOWMAN Report Released Date/Time: Sep 24, 2022 01:55 PM Reporting Lab: [facility] [address] Performing Lab: [facility] [address] [place] [facility] URINALYS IS HEMOGLOBIN [PRESENCE] IN URINE BY TEST STRIP 1+ 10/08 Specimen Type: URINE No comment entered. Ordering Provider: ANKUSH BOWMAN Report Released Date/Time: Sep 24, 2022 01:55 PM Reporting Lab: [facility] [address] Performing Lab: [facility] [address] [place] [facility] URINALYS IS NITRITE [PRESENCE] IN URINE BY TEST STRIP NEGATIVE 10/08 Specimen Type: URINE No comment entered. Ordering Provider: ANKUSH BOWMAN Report Released Date/Time: Sep 24, 2022 01:55 PM Reporting Lab: [facility] [address] Performing Lab: [facility] [address] [place] [facility] URINALYS IS LEUKOCYTE CLUMPS [#/VOLUME] IN URINE BY AUTOMATED COUNT PRESENT 10/08 Specimen Type: URINE No comment entered. Ordering Provider: ANKUSH BOWMAN Report Released Date/Time: Sep 24, 2022 01:55 PM Reporting Lab: [facility] [address] Performing Lab: [facility] [address] [place] [facility] URINALYS IS LEUKOCYTE ESTERASE [PRESENCE] IN URINE BY TEST STRIP 500 10/08 Specimen Type: URINE No comment entered. Ordering Provider: ANKUSH BOWMAN Report Released Date/Time: Sep 24, 2022 01:55 PM Reporting Lab: [facility] [address] Performing Lab: [facility] [address] [place] [facility] ALBUMIN ALBUMIN [MASS/VOLU ME] IN SERUM OR PLASMA 4.2 3.5 - 5.2 10/08 Specimen Type: PLASMA No comment entered. Ordering Provider: ANKUSH BOWMAN Report Released Date/Time: Sep 24, 2022 01:55 PM Reporting Lab: [facility] [address] Performing Lab: [facility] [address] [place] [facility] PRE-ALBU MIN PREALBUMIN [MASS/VOLU ME] IN SERUM OR PLASMA 28.4 14.0 - 45.0 10/08 Specimen Type: SERUM No comment entered. Ordering Provider: ANKUSH BOWMAN Report Released Date/Time: Sep 24, 2022 01:55 PM Reporting Lab: [facility] [address] Performing Lab: [facility] [address] [place] [facility] COMPREHE NSIVE METABOLI C PANEL+MG CREATININE [MASS/VOLU ME] IN SERUM OR PLASMA 0.7 0.7 - 1.2 10/08 Specimen Type: PLASMA No comment entered. Ordering Provider: ANKUSH BOWMAN Report Released Date/Time: Sep 24, 2022 01:55 PM Reporting Lab: [facility] [address] Performing Lab: [facility] [address] [place] [facility] COMPREHE NSIVE METABOLI C PANEL+MG UREA NITROGEN [MASS/VOLU ME] IN SERUM OR PLASMA 16 8 - 26 10/08 Specimen Type: PLASMA No comment entered. Ordering Provider: ANKUSH BOWMAN Report Released Date/Time: Sep 24, 2022 01:55 PM Reporting Lab: [facility] [address] Performing Lab: [facility] [address] [place] [facility] COMPREHE NSIVE METABOLI C PANEL+MG GLUCOSE [MASS/VOLU ME] IN SERUM OR PLASMA 94 70 - 100 10/08 Specimen Type: PLASMA No comment entered. Ordering Provider: ANKUSH BOWMAN Report Released Date/Time: Sep 24, 2022 01:55 PM Reporting Lab: [facility] [address] Performing Lab: [facility] [address] [place] [facility] COMPREHE NSIVE METABOLI C PANEL+MG SODIUM [MOLES/VOL UME] IN SERUM OR PLASMA 138 136 - 145 10/08 Specimen Type: PLASMA No comment entered. Ordering Provider: ANKUSH BOWMAN Report Released Date/Time: Sep 24, 2022 01:55 PM Reporting Lab: [facility] [address] Performing Lab: [facility] [address] [place] [facility] COMPREHE NSIVE METABOLI C PANEL+MG POTASSIUM [MOLES/VOL UME] IN SERUM OR PLASMA 3.9 3.5 - 5.1 10/08 Specimen Type: PLASMA No comment entered. Ordering Provider: ANKUSH BOWMAN Report Released Date/Time: Sep 24, 2022 01:55 PM Reporting Lab: [facility] [address] Performing Lab: [facility] [address] [place] [facility] COMPREHE NSIVE METABOLI C PANEL+MG CHLORIDE [MOLES/VOL UME] IN SERUM OR PLASMA 101 98 - 107 10/08 Specimen Type: PLASMA No comment entered. Ordering Provider: ANKUSH BOWMAN Report Released Date/Time: Sep 24, 2022 01:55 PM Reporting Lab: [facility] [address] Performing Lab: [facility] [address] [place] [facility] COMPREHE NSIVE METABOLI C PANEL+MG CARBON DIOXIDE, TOTAL [MOLES/VOL UME] IN SERUM OR PLASMA - 10/08 Specimen Type: PLASMA No comment entered. Ordering Provider: ANKUSH BOWMAN Report Released Date/Time: Sep 24, 2022 01:55 PM Reporting Lab: [facility] [address] Performing Lab: [facility] [address] [place] [facility] COMPREHE NSIVE METABOLI C PANEL+MG CALCIUM [MASS/VOLU ME] IN SERUM OR PLASMA 9.7 8.4 - 10.2 10/08 Specimen Type: PLASMA No comment entered. Ordering Provider: ANKUSH BOWMAN Report Released Date/Time: Sep 24, 2022 01:55 PM Reporting Lab: [facility] [id number] Performing Lab: [facility] [address] [place] [facility] COMPREHE NSIVE METABOLI C PANEL+MG PROTEIN [MASS/VOLU ME] IN SERUM OR PLASMA 7.6 6.0 - 8.3 10/08 Specimen Type: PLASMA No comment entered. Ordering Provider: ANKUSH BOWMAN Report Released Date/Time: Sep 24, 2022 01:55 PM Reporting Lab: [facility] [address] Performing Lab: [facility] [address] [place] [facility] COMPREHE NSIVE METABOLI C PANEL+MG ALBUMIN [MASS/VOLU ME] IN SERUM OR PLASMA 4.2 3.5 - 5.2 10/08 Specimen Type: PLASMA No comment entered. Ordering Provider: ANKUSH BOWMAN Report Released Date/Time: Sep 24, 2022 01:55 PM Reporting Lab: [facility] [address] Performing Lab: [facility] [address] [place] [facility] COMPREHE NSIVE METABOLI C PANEL+MG BILIRUBIN. TOTAL [MASS/VOLU ME] IN SERUM OR PLASMA 0.6 0.2 - 1.2 10/08 Specimen Type: PLASMA No comment entered. Ordering Provider: ANKUSH BOWMAN Report Released Date/Time: Sep 24, 2022 01:55 PM Reporting Lab: [facility] [address] Performing Lab: [facility] [address] [place] [facility] COMPREHE NSIVE METABOLI C PANEL+MG MAGNESIUM [MASS/VOLU ME] IN SERUM OR PLASMA 2.1 1.6 - 2.6 10/08 Specimen Type: PLASMA No comment entered. Ordering Provider: ANKUSH BOWMAN Report Released Date/Time: Sep 24, 2022 01:55 PM Reporting Lab: [facility] [address] Performing Lab: [facility] [address] [place] [facility] COMPREHE NSIVE METABOLI C PANEL+MG ANION GAP IN SERUM OR PLASMA 9 5 - 15 10/08 Specimen Type: PLASMA No comment entered. Ordering Provider: ANKUSH BOWMAN Report Released Date/Time: Sep 24, 2022 01:55 PM Reporting Lab: [facility] [address] Performing Lab: [facility] [address] [place] [facility] COMPREHE NSIVE METABOLI C PANEL+MG ALKALINE PHOSPHATAS E [ENZYMATIC ACTIVITY/V OLUME] IN SERUM OR PLASMA 96 40 - 150 10/08 Specimen Type: PLASMA No comment entered. Ordering Provider: ANKUSH BOWMAN Report Released Date/Time: Sep 24, 2022 01:55 PM Reporting Lab: [facility] [address] Performing Lab: [facility] [address] [place] [facility] COMPREHE NSIVE METABOLI C PANEL+MG ALANINE AMINOTRANS FERASE [ENZYMATIC ACTIVITY/V OLUME] IN SERUM OR PLASMA 29 <55 - 55 10/08 Specimen Type: PLASMA No comment entered. Ordering Provider: ANKUSH BOWMAN Report Released Date/Time: Sep 24, 2022 01:55 PM Reporting Lab: [facility] [address] Performing Lab: [facility] [address] [place] [facility] COMPREHE NSIVE METABOLI C PANEL+MG ASPARTATE AMINOTRANS FERASE [ENZYMATIC ACTIVITY/V OLUME] IN SERUM OR PLASMA 22 <34 - 34 10/08 Specimen Type: PLASMA No comment entered. Ordering Provider: ANKUSH BOWMAN Report Released Date/Time: Sep 24, 2022 01:55 PM Reporting Lab: [facility] [address] Performing Lab: [facility] [address] [place] [facility] COMPREHE NSIVE METABOLI C PANEL+MG GLOMERULAR FILTRATION RATE/1.73 SQ M.PREDICTE D [VOLUME RATE/AREA] IN SERUM, PLASMA OR BLOOD BY CREATININE -BASED FORMULA (CKD-EPI) >90 60 10/08 Specimen Type: PLASMA No comment entered. Ordering Provider: ANKUSH BOWMAN Report Released Date/Time: Sep 24, 2022 01:55 PM Reporting Lab: [facility] [address] Performing Lab: [facility] [address] [place] [facility] CBC & DIFF LEUKOCYTES [#/VOLUME] IN BLOOD BY AUTOMATED COUNT 7.32 4.0 - 11.0 10/08 Specimen Type: BLOOD Comment: Automated Differentia l Performed Ordering Provider: ANKUSH BOWMAN Report Released Date/Time: Sep 24, 2022 01:55 PM Reporting Lab: [facility] [address] Performing Lab: [facility] [address] [place] [facility] CBC & DIFF ERYTHROCYT ES [#/VOLUME] IN BLOOD BY AUTOMATED COUNT 4.80 4.6 - 6.2 10/08 Specimen Type: BLOOD Comment: Automated Differentia l Performed Ordering Provider: ANKUSH BOWMAN Report Released Date/Time: Sep 24, 2022 01:55 PM Reporting Lab: [facility] [address] Performing Lab: [facility] [address] [place] [facility] CBC & DIFF HEMOGLOBIN [MASS/VOLU ME] IN BLOOD 14.7 13.5 - 17.9 10/08 Specimen Type: BLOOD Comment: Automated Differentia l Performed Ordering Provider: ANKUSH BOWMAN Report Released Date/Time: Sep 24, 2022 01:55 PM Reporting Lab: [facility] [address] Performing Lab: [facility] [address] [place] [facility] CBC & DIFF HEMATOCRIT [VOLUME FRACTION] OF BLOOD BY AUTOMATED COUNT 44.2 41 - 54 10/08 Specimen Type: BLOOD Comment: Automated Differentia l Performed Ordering Provider: ANKUSH BOWMAN Report Released Date/Time: Sep 24, 2022 01:55 PM Reporting Lab: [facility] [address] Performing Lab: [facility] [address] [place] [facility] CBC & DIFF MCV [ENTITIC VOLUME] BY AUTOMATED COUNT 92.1 80 - 100 10/08 Specimen Type: BLOOD Comment: Automated Differentia l Performed Ordering Provider: ANKUSH BOWMAN Report Released Date/Time: Sep 24, 2022 01:55 PM Reporting Lab: [facility] [address] Performing Lab: [facility] [address] [place] [facility] CBC & DIFF MCH [ENTITIC MASS] BY AUTOMATED COUNT 30.6 27 - 33 10/08 Specimen Type: BLOOD Comment: Automated Differentia l Performed Ordering Provider: ANKUSH BOWMAN Report Released Date/Time: Sep 24, 2022 01:55 PM Reporting Lab: [facility] [address] Performing Lab: [facility] [address] [place] [facility] CBC & DIFF MCHC [MASS/VOLU ME] BY AUTOMATED COUNT 33.3 32.0 - 37.5 10/08 Specimen Type: BLOOD Comment: Automated Differentia l Performed Ordering Provider: ANKUSH BOWMAN Report Released Date/Time: Sep 24, 2022 01:55 PM Reporting Lab: [facility] [address] Performing Lab: [facility] [address] [place] [facility] CBC & DIFF PLATELETS [#/VOLUME] IN BLOOD BY AUTOMATED COUNT 144 150 - 400 10/08 L Specimen Type: BLOOD Comment: Automated Differentia l Performed Ordering Provider: ANKUSH BOWMAN Report Released Date/Time: Sep 24, 2022 01:55 PM Reporting Lab: [facility] [address] Performing Lab: [facility] [address] [place] [facility] CBC & DIFF PLATELET MEAN VOLUME [ENTITIC VOLUME] IN BLOOD BY AUTOMATED COUNT 10.8 7.4 - 10.4 10/08 H Specimen Type: BLOOD Comment: Automated Differentia l Performed Ordering Provider: ANKUSH BOWMAN Report Released Date/Time: Sep 24, 2022 01:55 PM Reporting Lab: [facility] [address] Performing Lab: [facility] [address] [place] [facility] CBC & DIFF NEUTROPHIL S/100 LEUKOCYTES IN BLOOD BY MANUAL COUNT 55.5 10/08 Specimen Type: BLOOD Comment: Automated Differentia l Performed Ordering Provider: ANKUSH BOWMAN Report Released Date/Time: Sep 24, 2022 01:55 PM Reporting Lab: [facility] [address] Performing Lab: [facility] [address] [place] [facility] CBC & DIFF LYMPHOCYTE S/100 LEUKOCYTES IN BLOOD BY MANUAL COUNT 31.4 10/08 Specimen Type: BLOOD Comment: Automated Differentia l Performed Ordering Provider: ANKUSH BOWMAN Report Released Date/Time: Sep 24, 2022 01:55 PM Reporting Lab: [facility] [address] Performing Lab: [facility] [address] [place] [facility] CBC & DIFF MONOCYTES/ 100 LEUKOCYTES IN BLOOD BY AUTOMATED COUNT 10.2 10/08 Specimen Type: BLOOD Comment: Automated Differentia l Performed Ordering Provider: ANKUSH BOWMAN Report Released Date/Time: Sep 24, 2022 01:55 PM Reporting Lab: [facility] [address] Performing Lab: [facility] [address] [place] [facility] CBC & DIFF EOSINOPHIL S/100 LEUKOCYTES IN BLOOD BY AUTOMATED COUNT 2.2 10/08 Specimen Type: BLOOD Comment: Automated Differentia l Performed Ordering Provider: ANKUSH BOWMAN Report Released Date/Time: Sep 24, 2022 01:55 PM Reporting Lab: [facility] [address] Performing Lab: [facility] [address] [place] [facility] CBC & DIFF BASOPHILS/ 100 LEUKOCYTES IN BLOOD BY MANUAL COUNT 0.4 10/08 Specimen Type: BLOOD Comment: Automated Differentia l Performed Ordering Provider: ANKUSH BOWMAN Report Released Date/Time: Sep 24, 2022 01:55 PM Reporting Lab: [facility] [address] Performing Lab: [facility] [address] [place] [facility] CBC & DIFF ERYTHROCYT E DISTRIBUTI ON WIDTH [RATIO] BY AUTOMATED COUNT 15.9 11.5 - 14.5 10/08 H Specimen Type: BLOOD Comment: Automated Differentia l Performed Ordering Provider: ANKUSH BOWMAN Report Released Date/Time: Sep 24, 2022 01:55 PM Reporting Lab: [facility] [address] Performing Lab: [facility] [address] [place] [facility] CBC & DIFF LYMPHOCYTE S [#/VOLUME] IN BLOOD BY AUTOMATED COUNT 2.30 1.0 - 4.0 10/08 Specimen Type: BLOOD Comment: Automated Differentia l Performed Ordering Provider: ANKUSH BOWMAN Report Released Date/Time: Sep 24, 2022 01:55 PM Reporting Lab: [facility] [address] Performing Lab: [facility] [address] [place] [facility] CBC & DIFF MONOCYTES [#/VOLUME] IN BLOOD BY AUTOMATED COUNT 0.75 0.1 - 1.0 10/08 Specimen Type: BLOOD Comment: Automated Differentia l Performed Ordering Provider: ANKUSH BOWMAN Report Released Date/Time: Sep 24, 2022 01:55 PM Reporting Lab: [facility] [address] Performing Lab: [facility] [address] [place] [facility] CBC & DIFF NEUTROPHIL S [#/VOLUME] IN BLOOD BY AUTOMATED COUNT 4.06 2.0 - 7.7 10/08 Specimen Type: BLOOD Comment: Automated Differentia l Performed Ordering Provider: ANKUSH BOWMAN Report Released Date/Time: Sep 24, 2022 01:55 PM Reporting Lab: [facility] [address] Performing Lab: [facility] [address] [place] [facility] CBC & DIFF EOSINOPHIL S [#/VOLUME] IN BLOOD BY AUTOMATED COUNT 0.16 0 - 0.5 10/08 Specimen Type: BLOOD Comment: Automated Differentia l Performed Ordering Provider: ANKUSH BOWMAN Report Released Date/Time: Sep 24, 2022 01:55 PM Reporting Lab: [facility] [address] Performing Lab: [facility] [address] [place] [facility] CBC & DIFF BASOPHILS [#/VOLUME] IN BLOOD BY AUTOMATED COUNT 0.03 0 - 0.2 10/08 Specimen Type: BLOOD Comment: Automated Differentia l Performed Ordering Provider: ANKUSH BOWMAN Report Released Date/Time: Sep 24, 2022 01:55 PM Reporting Lab: [facility] [address] Performing Lab: [facility] [address] [place] [facility] CBC & DIFF IG(META,MY MALACHI,PRO) 0.3 10/08 Specimen Type: BLOOD Comment: Automated Differentia l Performed Ordering Provider: ANKUSH BOWMAN Report Released Date/Time: Sep 24, 2022 01:55 PM Reporting Lab: [facility] [address] Performing Lab: [facility] [address] [place] [facility] CBC & DIFF IMMATURE GRANULOCYT ES [PRESENCE] IN BLOOD BY AUTOMATED COUNT 0.02 0 - 0.1 10/08 Specimen Type: BLOOD Comment: Automated Differentia l Performed Ordering Provider: ANKUSH BOWMAN Report Released Date/Time: Sep 24, 2022 01:55 PM Reporting Lab: [facility] [address] Performing Lab: [facility] [address] [place] [facility] CYSTATIN C WITH EGFR CYSTATIN C [MASS/VOLU ME] IN SERUM OR PLASMA 1.38 0.51 - 1.05 10/08 H Specimen Type: PLASMA No comment entered. Ordering Provider: ANKUSH BOWMAN Report Released Date/Time: Sep 24, 2022 01:55 PM Reporting Lab: [facility] [address] Performing Lab: [facility] [address] [place] [facility] CYSTATIN C WITH EGFR CYSTATIN C AND GLOMERULAR FILTRATION RATE BY CYSTATIN-B ASED FORMULA PANEL - SERUM OR PLASMA 48 60 10/08 L Specimen Type: PLASMA No comment entered. Ordering Provider: ANKUSH BOWMAN Report Released Date/Time: Sep 24, 2022 01:55 PM Reporting Lab: [facility] [address] Performing Lab: [facility] [address] [place] [facility] VIT D 25-OH,TO ZAMZAM 25-HYDROXY VITAMIN D3 [MASS/VOLU ME] IN SERUM OR PLASMA 54 12 - 50 10/08 H Specimen Type: SERUM No comment entered. Ordering Provider: ANKUSH BOWMAN Report Released Date/Time: Sep 24, 2022 01:55 PM Reporting Lab: [facility] [address] Performing Lab: [facility] [address] [place] [facility] COMPREHE NSIVE METABOLI C PANEL+MG CREATININE [MASS/VOLU ME] IN SERUM OR PLASMA 0.7 0.7 - 1.2 05/28 Specimen Type: PLASMA No comment entered. Ordering Provider: GERMANIA HANSON Report Released Date/Time: May 28, 2022 03:06 PM Reporting Lab: [facility] [address] Performing Lab: [facility] [address] [facility] COMPREHE NSIVE METABOLI C PANEL+MG UREA NITROGEN [MASS/VOLU ME] IN SERUM OR PLASMA 13 8 - 26 05/28 Specimen Type: PLASMA No comment entered. Ordering Provider: GERMANIA HANSON Report Released Date/Time: May 28, 2022 03:06 PM Reporting Lab: [facility] [address] Performing Lab: [facility] [address] [facility] COMPREHE NSIVE METABOLI C PANEL+MG GLUCOSE [MASS/VOLU ME] IN SERUM OR PLASMA 98 74 - 100 05/28 Specimen Type: PLASMA No comment entered. Ordering Provider: GERMANIA HANSON Report Released Date/Time: May 28, 2022 03:06 PM Reporting Lab: [facility] [address] Performing Lab: [facility] [address] [facility] COMPREHE NSIVE METABOLI C PANEL+MG SODIUM [MOLES/VOL UME] IN SERUM OR PLASMA 138 136 - 145 05/28 Specimen Type: PLASMA No comment entered. Ordering Provider: GERMANIA HANSON Report Released Date/Time: May 28, 2022 03:06 PM Reporting Lab: [facility] [address] Performing Lab: [facility] [address] [facility] COMPREHE NSIVE METABOLI C PANEL+MG POTASSIUM [MOLES/VOL UME] IN SERUM OR PLASMA 4.4 3.5 - 5.1 05/28 Specimen Type: PLASMA No comment entered. Ordering Provider: GERMANIA HANSON Report Released Date/Time: May 28, 2022 03:06 PM Reporting Lab: [facility] [address] Performing Lab: [facility] [address] [facility] COMPREHE NSIVE METABOLI C PANEL+MG CHLORIDE [MOLES/VOL UME] IN SERUM OR PLASMA 102 98 - 107 05/28 Specimen Type: PLASMA No comment entered. Ordering Provider: GERMANIA HANSON Report Released Date/Time: May 28, 2022 03:06 PM Reporting Lab: [facility] [address] Performing Lab: [facility] [address] [facility] COMPREHE NSIVE METABOLI C PANEL+MG CARBON DIOXIDE, TOTAL [MOLES/VOL UME] IN SERUM OR PLASMA 28 22 - 29 05/28 Specimen Type: PLASMA No comment entered. Ordering Provider: GERMANIA HANSON Report Released Date/Time: May 28, 2022 03:06 PM Reporting Lab: [facility] [address] Performing Lab: [facility] [address] [facility] COMPREHE NSIVE METABOLI C PANEL+MG CALCIUM [MASS/VOLU ME] IN SERUM OR PLASMA 9.4 8.4 - 10.2 05/28 Specimen Type: PLASMA No comment entered. Ordering Provider: GERMANIA HANSON Report Released Date/Time: May 28, 2022 03:06 PM Reporting Lab: [facility] [address] Performing Lab: [facility] [address] [facility] COMPREHE NSIVE METABOLI C PANEL+MG PROTEIN [MASS/VOLU ME] IN SERUM OR PLASMA 7.6 6.0 - 8.3 05/28 Specimen Type: PLASMA No comment entered. Ordering Provider: GERMANIA HANSON Report Released Date/Time: May 28, 2022 03:06 PM Reporting Lab: [facility] [address] Performing Lab: [facility] [address] [facility] COMPREHE NSIVE METABOLI C PANEL+MG ALBUMIN [MASS/VOLU ME] IN SERUM OR PLASMA 4.0 3.5 - 5.2 05/28 Specimen Type: PLASMA No comment entered. Ordering Provider: GERMANIA HANSON Report Released Date/Time: May 28, 2022 03:06 PM Reporting Lab: [facility] [address] Performing Lab: [facility] [address] [facility] COMPREHE NSIVE METABOLI C PANEL+MG BILIRUBIN. TOTAL [MASS/VOLU ME] IN SERUM OR PLASMA 0.5 0.2 - 1.2 05/28 Specimen Type: PLASMA No comment entered. Ordering Provider: GERMANIA HANSON Report Released Date/Time: May 28, 2022 03:06 PM Reporting Lab: [facility] [address] Performing Lab: [facility] [address] [facility] COMPREHE NSIVE METABOLI C PANEL+MG MAGNESIUM [MASS/VOLU ME] IN SERUM OR PLASMA 2.1 1.6 - 2.6 05/28 Specimen Type: PLASMA No comment entered. Ordering Provider: GERMANIA HANSON Report Released Date/Time: May 28, 2022 03:06 PM Reporting Lab: [facility] [address] Performing Lab: [facility] [address] [facility] COMPREHE NSIVE METABOLI C PANEL+MG ANION GAP IN SERUM OR PLASMA 8 5 - 15 05/28 Specimen Type: PLASMA No comment entered. Ordering Provider: GERMANIA HANSON Report Released Date/Time: May 28, 2022 03:06 PM Reporting Lab: [facility] [address] Performing Lab: [facility] [address] [facility] COMPREHE NSIVE METABOLI C PANEL+MG ALKALINE PHOSPHATAS E [ENZYMATIC ACTIVITY/V OLUME] IN SERUM OR PLASMA 108 40 - 150 05/28 Specimen Type: PLASMA No comment entered. Ordering Provider: GERMANIA HANSON Report Released Date/Time: May 28, 2022 03:06 PM Reporting Lab: [facility] [address] Performing Lab: [facility] [address] [facility] COMPREHE NSIVE METABOLI C PANEL+MG ALANINE AMINOTRANS FERASE [ENZYMATIC ACTIVITY/V OLUME] IN SERUM OR PLASMA 27 <55 - 55 05/28 Specimen Type: PLASMA No comment entered. Ordering Provider: GERMANIA HANSON Report Released Date/Time: May 28, 2022 03:06 PM Reporting Lab: [facility] [address] Performing Lab: [facility] [address] [facility] COMPREHE NSIVE METABOLI C PANEL+MG ASPARTATE AMINOTRANS FERASE [ENZYMATIC ACTIVITY/V OLUME] IN SERUM OR PLASMA 21 <34 - 34 05/28 Specimen Type: PLASMA No comment entered. Ordering Provider: GERMANIA HANSON Report Released Date/Time: May 28, 2022 03:06 PM Reporting Lab: [facility] [address] Performing Lab: [facility] [address] [facility] COMPREHE NSIVE METABOLI C PANEL+MG GLOMERULAR FILTRATION RATE/1.73 SQ M.PREDICTE D [VOLUME RATE/AREA] IN SERUM, PLASMA OR BLOOD BY CREATININE -BASED FORMULA (CKD-EPI) >90 60 05/28 Specimen Type: PLASMA No comment entered. Ordering Provider: GERMANIA HANSON Report Released Date/Time: May 28, 2022 03:06 PM Reporting Lab: [facility] [address] Performing Lab: [facility] [address] [facility] Vital Signs Combined list of inpatient and outpatient Vital Signs from Department of Defense and Veterans Affairs, ranging from 12 months to all on record, depending upon the facility. Vital Sign Value Date Comments Source SYSTOLIC BLOOD PRESSURE 103 02/13/2023 10:58:23 [facility] DIASTOLIC BLOOD PRESSURE 66 02/13/2023 10:58:23 [facility] PULSE OXIMETRY 98% 02/13/2023 10:58:23 [place] [facility] PAIN 4 02/13/2023 10:58:23 [facility] TEMPERATURE 96.2 02/13/2023 10:58:23 [facility] PULSE 86 02/13/2023 10:58:23 [facility] RESPIRATION 16 02/13/2023 10:58:23 [facility] WEIGHT 225 02/05/2023 15:39:35 [facility] BMI 33kg/m2 02/05/2023 15:39:35 [facility] Encounters Combined list of: 1) Encounters from Department of Veterans Affairs facilities going back up to thelast 18 months. 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 Location Location Details Encounter Type Encounter Number Reason For Visit Attending Provider ADM Date DC Date Status Disposition Source [facility] OFFICE O/P [place] 60-74 MIN [id number] Diagnos is: ICD-10- CM C72.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
GRANDIA,CO NNIE M 05/28 [facility] [place] [facility] Outpatient Encounter [id number] 05/30 [place] [facility] [place] [facility] Outpatient Encounter [id number] 06/01 [place] [facility] [place] [facility] Outpatient Encounter [id number] 06/04 [place] [facility] [place] [facility] Outpatient Encounter [id number] 06/05 [facility] [place] [facility] SELF CARE MNGMENT TRAINING [id number] Diagnos is: ICD-10- CM Z73.6 Limitat ion of activit ies due to disabil ity<br/ > NADEEN MITCHELL 06/07 [facility] [place] [facility] Outpatient Encounter [id number] 06/07 [place] [facility] [place] [facility] OT EVAL HIGH COMPLEX 60 MIN [id number] Diagnos is: ICD-10- CM R54 Age-rel ated physica l debilit y
SAVANNA MCKINLEY 06/07 [facility] [place] [facility] Outpatient Encounter [id number] 06/11 [facility] [place] [facility] Outpatient Encounter [id number] 06/11 [facility] [place] [facility] Outpatient Encounter [id number] 06/12 [facility] [place] [facility] Outpatient Encounter [id number] 06/15 [facility] [place] [facility] Outpatient Encounter [id number] 06/21 [facility] [place] [facility] Outpatient Encounter [id number] 06/25 [facility] [place] [facility] OFFICE O/P NEW LOW 30-44 MIN [id number] Diagnos is: ICD-10- CM G82.20 Paraple mary kay, unspeci fied
ME LOGAN BOWMAN 06/27 [facility] Outpatient Encounter [id number] 06/27 [facility] SELF CARE MNGMENT TRAINING [id number] Diagnos is: ICD-10- CM Z73.6 Limitat ion of activit ies due to disabil ity<br/ > SUDHA,KRI RONNY M 07/11 [facility] Outpatient Encounter [id number] 07/18 [place] [facility] SELF CARE MNGMENT TRAINING [phone] Diagnos is: ICD-10- CM Z73.6 Limitat ion of activit ies due to disabil ity<br/ > GODING,RACIEL T 07/23 [facility] SELF CARE MNGMENT TRAINING [phone] Diagnos is: ICD-10- CM Z73.6 Limitat ion of activit ies due to disabil ity<br/ > SUDHAAVE JEFFERSON M 07/25 [facility] OT EVAL MOD COMPLEX 45 MIN [id number] Diagnos is: ICD-10- CM Z73.6 Limitat ion of activit ies due to disabil ity<br/ > SUDHA,AVE JEFFERSON M 07/25 [facility] Outpatient Encounter [phone] Diagnos is: ICD-10- CM R26.9 Unspeci fied abnorma lities of gait and mobilit y
KARI JORDAN M 07/31 [facility] OFFICE O/P EST MOD 30-39 MIN [id number] Diagnos is: ICD-10- CM G82.20 Paraple mary kay, unspeci fied
ME LOGAN BOWMAN 08/01 [facility] Outpatient Encounter [id number] 08/17 [facility] Outpatient Encounter [id number] 09/20 [facility] OFFICE O/P EST MINIMAL PROB [id number] Diagnos is: ICD-10- CM G82.20 Paraple mary kay, unspeci fied
Jey PATTON V 10/08 [facility] ASSISTIVE TECHNOLOGY ASSESS [id number] Diagnos is: ICD-10- CM Z73.6 Limitat ion of activit ies due to disabil ity<br/ > BOUSLOG,RY AN P 10/08 [facility] Outpatient Encounter [id number] 10/09 [facility] Outpatient Encounter [id number] 10/11 [facility] HC PRO PHONE CALL 5-10 MIN [id number] Diagnos is: ICD-10- CM Z73.6 Limitat ion of activit ies due to disabil ity<br/ > AVE HALEY 12/13 [facility] Outpatient Encounter [id number] 01/08 [facility] HC PRO PHONE CALL 21-30 MIN [id number] Diagnos is: ICD-10- CM G82.20 Paraple mary kay, unspeci fied
Hever CASTRO 01/08 [facility] Outpatient Encounter [id number] 01/09 [facility] DIABETIC MANAGEMENT PROGRAM, [id number] Diagnos is: ICD-10- CM G82.20 Paraple mary kay, unspeci fied
TIGIST BASSETT 01/30 [facility] Outpatient Encounter [id number] 02/05 [facility] MTMS BY PHARM ADDL 15 MIN [id number] Diagnos is: ICD-10- CM G82.20 Paraple mary kay, unspeci fied
MANPREET BARRETT N 02/05 [facility] OT EVAL LOW COMPLEX 30 MIN [id number] Diagnos is: ICD-10- CM Z73.6 Limitat ion of activit ies due to disabil ity<br/ > Bryn PARDO 02/05 [facility] OFF/OP EST MAY X REQ PHY/QHP [phone] Diagnos is: ICD-10- CM G82.20 Paraple mary kay, unspeci fied
JOSUÉ ZAMORA J 02/05 [facility] PSYCH DIAGNOSTIC EVALUATION [id number] Diagnos is: ICD-10- CM F32.A Depress ion, unspeci fied
BINU GAMEZ 02/05 [facility] OFFICE O/P EST MOD 30-39 MIN [id number] Diagnos is: ICD-10- CM G82.20 Paraple mary kay, unspeci fied
ME LOGAN BOWMAN 02/05 [facility] PSYCH DIAGNOSTIC EVALUATION [id number] Diagnos is: ICD-10- CM G82.20 Paraple mary kay, unspeci fied
CHIRCOP,AN DESIRE J 02/05 [facility] MEDICAL NUTRITION INDIV IN [id number] Diagnos is: ICD-10- CM Z71.3 Dietary deputy county counsel ing and surveil payal<b r/> Katia ARCHER 02/05 [facility] ENTEROSTOM AL THERAPY BY A RE [id number] Diagnos is: ICD-10- CM Z43.3 Encount er for attenti on to colosto my
VIOLA YOON 02/08 [facility] OFFICE O/P EST HI 40-54 MIN [id number] Diagnos is: ICD-10- CM G82.20 Paraple mary kay, unspeci fied
ME LOGAN BOWMAN 02/13 [facility] WHEELCHAIR MNGMENT TRAINING [id number] Diagnos is: ICD-10- CM Z73.6 Limitat ion of activit ies due to disabil ity<br/ > BOUSLOG,RY AN P 02/13 [facility] Outpatient Encounter [id number] 02/19 [facility] PRO PHONE CALL 11-20 MIN [id number] Diagnos is: ICD-10- CM Z73.6 Limitat ion of activit ies due to disabil ity<br/ > BOUSLOG,RY AN P 04/23 [facility] Outpatient Encounter [id number] 04/24 [facility] Outpatient Encounter [id number] 05/24 [facility] OFF/OP EST MAY X REQ PHY/QHP [id number] Diagnos is: ICD-10- CM G82.20 Paraple mary kay, unspeci fied
VIOLA YOON 05/28 [facility] WHEELCHAIR MNGMENT TRAINING [id number] Diagnos is: ICD-10- CM Z73.6 Limitat ion of activit ies due to disabil ity<br/ > BOUSLOG,RY AN P 06/10 [facility] Outpatient Encounter [id number] 10/28 [facility] Outpatient Encounter [id number] 11/20 [facility] Social History Combined list of available smoking, tobacco, and other social history from 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 Social History Type Response Date Comment Sour e Tobacco smoking status [facility] NEVER USED 05/28/20 22 [facility] This section is an empty social history section. [facility] Advance Directives List of completed, amended, or rescinded Advance Directives on record at Department of 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 An actual copy of the Directive is not included. Date Advance Directive Provider Source 02/05/2023 ADVANCE DIRECTIVE DISCUSSION GUSTAVO ABAD [facility]
--- OUTSIDE RECORDS SUMMARY | 2023-11-25 11:16 | XMS_ITS | Encounter Summary ---
Author Name [facility] Organization [facility] Address [address] [place] [address] Support Name Relationship Address Phone WADE DEGROOT Next of Kin [address] [place] [address] WADE DEGROOT Emergency Contact [address] [place] [address] KTBIMALCHANTEL Next of [place] J[place] DENNISON Emergency Contact VET [place] CON S[facility] Insurance Providers: All historical and current Section [...] PART B Jul 12, 2004 PART B [id number] [facility] [phone] Kasie DEGROOT RED PATIENT MEDICARE (WNR) MEDICARE (M) PART A Oct 11, 2002 PART A [id number] [phone] Kasie DEGROOT RED PATIENT Selected Encounter This section includes the information on record at [place] for the Encounter. Date/Time Encounter Type Encounter Description Reason Pro vider Source Nov 20, 2023 01:23 PM Outpatient Encounter TELEPHONE/ANCILLARY IHE Encounter Template Text not used by [place] Advance Directives: All historical and current Section Date Range: From patient's date of to the date document was created. This section includes ALL of a patient's completed or amended [place] Advance and Rescinded Directives. The entries below indicate that a directive exists for the patient, but an actual copy is not included with this document. The data comes from all [place] facilities. Date Advance Directives Provider Source Feb 05, 2023 ADVANCE DIRECTIVE DISCUSSION GUSTAVO ABAD [facility] Encounter Notes: All associated encounter notes This section contains the clinical notes associated to the Encounter. Date/Time Encounter Note(s) Provider Source Nov 20, 2023 01:23 PM [facility] CARE NOTE: LOCAL TITLE: [facility] ELIGIBILITY STANDARD TITLE: [facility] C[facility] NOTE DATE OF NOTE: NOV 20, 2023@13:23 ENTRY DATE: NOV 20, 2023@13:23:07 AUTHOR: ALISON WHITLOCK EXP COSIGNER: URGENCY: STATUS: COMPLETED [facility] ELIGIBILITY: This contact note is used to document a 's administrative eligibility for a VA authorization at a community usp. Referral Source/Location: [facility] Home: Contract Penitentiary: Yes Contact: Melany Phone Number: Reviewed the following eligibility [facility] or [facility] Authorization: No If yes: If administratively eligible, meets Medicare guidelines for skilled rehab and able/willing to participate: No Neche has a clinical need for usp care: Yes Hospice authorization: Yes Neche would be eligible if enrolled in hospice service Referral source contact encouraged to do the following: Contact proposal writer for further questions as needed. /el/ JEM GARCIA ART HANDLER JEM Signed: 11/20/2023 13:23 ALISON WHITLOCK [facility]
--- OUTSIDE RECORDS SUMMARY | 2023-11-25 11:17 | XMS_ITS | Encounter Summary ---
Author Name Unknown Organization [facility] Address [address] [place] [address] Care Team Providers Care Paste Worker Name Role Phone Franklin Squires MD Primary [...] on filedocumented in this encounter Care Teams Paste Worker Relationship Specialty Start Date End Date Franklin Squires MD [address] [place], [place] [address]LES [place] [address] PCP - General Family Practice 03/08/16 documented as of this encounter
--- OUTSIDE RECORDS SUMMARY | 2023-11-25 11:17 | XMS_ITS | Encounter Summary ---
Author Name Unknown Organization [facility] Address [address] [place] [address] Care Team Providers Care Holistic Pulser Name Role Phone Franklin Squires MD Primary [...] on filedocumented in this encounter Care Teams Holistic Pulser Relationship Specialty Start Date End Date Franklin Squires MD [address] [place], [place] [address] [address] PCP - General Family Practice 03/08/16 documented as of this encounter
--- OUTSIDE RECORDS SUMMARY | 2023-11-25 11:17 | XMS_ITS | Clinical Summary ---
Author Name Unknown Organization [facility] Address [address] [place] [address] Care Team Providers Care Director Of Billing Name Role Phone Franklin Squires MD Primary Care Provider [phone] Source Comments You are receiving this document as you are listed as the primary care provider,follow-up provider, or the patient has been referred to you for consultation.This is in compliance with the Medicare and[facility] EHR Incentive Program,which states Providers who transition their patient to another setting of careor provider of care or refers their patient to another provider of care shouldprovide summary care record for each transition of care or referral. [email or web address] Allergies Active Allergy Reactions Criticality Noted Date [...] 0 06/10/2014 History of anticoagulant therapy 02/17/2014 senior care current use of anticoagulant therapy 0 02/17/2014 [...] Comments Blood Pressure 120/63 01/18/2022 12:59 PM ROBOTICS TECHNOLOGIST Pulse 87 01/18/2022 12:59 PM ROBOTICS TECHNOLOGIST Temperature 36.3 ??C (97.4 ??F) 01/18/2022 12:59 [...] Tdap) 06/28/2021 06/28/2011 Influenza (#1) 2023 09/03/2021, 1007/2020, 08/20/2019, Additional history exists Pneumococcal 65+ Yrs [...] this topic Medical Devices Implanted Type Area School Leader Device Identifier Shelf Expiration Date Model / Serial / Lot [id number] 4ml Tisseel Explanted:([place] ntity not on file) BIOLOGIC N/A: NECK Lynne Fenwall 09/10/2011 [id number] / [id number] / [id number] Description:posterior Cath Intrathecal Indura - [id number] Implanted:Qty: 1 on 05/09/2010 at [facility] DEVICE Right: LUMBAR SPINE avocarrot 01/18/2012 8709 / N/A / [id number] Cath Intrathecal Indura - [id number] Implanted:Qty: 1 on 05/29/2010 at [facility] DEVICE Blender[employer] Carlos 8709 / / Scr Indira Conic 7.3x80 - [id number] Implanted:Qty: 1 on 03/13/2011 at [facility] DEVICE Right: FEMUR DISTAL [employer] 02.207.28 0 / NONE / NONE Plt Lcp Cndl Rt 4.5x170 6h - [id number] Implanted:Qty: 1 on 03/13/2011 at [facility] DEVICE Right: FEMUR DISTAL [employer] 222.656 / NONE / NONE Description:6 hole 170mm rig ht 4.5mm lcp condylar plate Scr Didier Ss Sftp 4.5x40 - [id number] Implanted:Qty: 1 on 03/13/2011 at [facility] DEVICE Left: FEMUR DISTAL [employer] 214.840 / NONE / NONE Scr Didier Ss Sftp 4.5x50 - [id number] Implanted:Qty: 1 on 03/13/2011 at [facility] DEVICE Left: FEMUR DISTAL [employer] [place] 214.850 / NONE / NONE Scr Indira Lk 5.0x80 - [id number] Implanted:Qty: 2 on 03/13/2011 at [facility] DEVICE Left: FEMUR DISTAL [employer] [place] 02.205.08 0 / NONE / NONE Scr Indira Lk 5.0x85 - [id number] Implanted:Qty: 2 on 03/13/2011 at [facility] DEVICE Left: FEMUR DISTAL [employer] [place] 02.205.08 5 / NONE / NONE Scr Lk Sftp T25 5.0x50 - [id number] Implanted:Qty: 1 on 03/13/2011 at [facility] DEVICE Left: FEMUR DISTAL [employer] [place] 212.219 / NONE / NONE Scr Lk Sftp T25 5.0x60 - [id number] Implanted:Qty: 1 on 03/13/2011 at [facility] DEVICE Left: FEMUR DISTAL [employer] [place] 212.221 / NONE / NONE Scr Indira Conic 7.3x85 - [id number] Implanted:Qty: 1 on 03/13/2011 at [facility] DEVICE Left: FEMUR DISTAL [employer] [place] 02.207.28 5 / NONE / NONE Plt Lcp Cndl Lt 4.5x170 6h - [id number] Implanted:Qty: 1 on 03/13/2011 at [facility] DEVICE Left: FEMUR DISTAL [employer] 222.657 / NONE / NONE Description:6 hole 170mmleng th left 4.5mm lcp condylar plate. Scr Didier Sftp 3.5x60 F-Thrd - [id number] Implanted:Qty: 1 on 03/13/2011 at [facility] DEVICE Left: TIBIA PROXIMAL [employer] [place] 204.860 / NONE / NONE Scr Star Lk Sftp 3.5x32 - [id number] Implanted:Qty: 1 on 03/13/2011 at [facility] DEVICE Left: TIBIA PROXIMAL [employer] [place] 212.112 / NONE / NONE Scr Star Lk Sftp 3.5x55 - [id number] Implanted:Qty: 2 on 03/13/2011 at [facility] DEVICE Left: TIBIA PROXIMAL [employer] [place] 212.123 / NONE / NONE Scr Star Lk Sftp 3.5x60 - [id number] Implanted:Qty: 2 on 03/13/2011 at [facility] DEVICE Left: TIBIA PROXIMAL [employer] [place] 212.124 / NONE / NONE Plt Lcp M/Prox Lt 3.5x94 4h - [id number] Implanted:Qty: 1 on 03/13/2011 at [facility] DEVICE Left: TIBIA PROXIMAL [employer] [place] 239.955 / NONE / NONE Scr Didier Ss Sftp 4.5x36 - [id number] Implanted:Qty: 1 on 03/13/2011 at [facility] DEVICE Right: FEMUR DISTAL [employer] [place] 214.836 / NONE / NONE Scr Didier Ss Sftp 4.5x44 - [id number] Implanted:Qty: 1 on 03/13/2011 at [facility] DEVICE Right: FEMUR DISTAL [employer] [place] 214.844 / NONE / NONE Scr Indira Lk 5.0x75 - [id number] Implanted:Qty: 1 on 03/13/2011 at [facility] DEVICE Right: FEMUR DISTAL [employer] [place] 02.205.07 5 / NONE / NONE Scr Indira Lk 5.0x85 - [id number] Implanted:Qty: 2 on 03/13/2011 at [facility] DEVICE Right: FEMUR DISTAL [employer] [place] 02.205.08 5 / NONE / NONE Scr Lk Sftp T25 5.0x44 - [id number] Implanted:Qty: 1 on 03/13/2011 at [facility] DEVICE Right: FEMUR DISTAL [employer] [place] 212.216 / NONE / NONE Scr Lk Sftp T25 5.0x65 - [id number] Implanted:Qty: 1 on 03/13/2011 at [facility] DEVICE Right: FEMUR DISTAL [employer] [place] 212.222 / NONE / NONE Plt Lp T Ti Str 4h - [id number] Implanted:Qty: 3 on 07/28/2014 by Cooper Shelley MD at [facility] DEVICE Right: SKULL [employer] [place] 421.504 / / Scr Matrix Sfdr 4mm - [id number] Implanted:Qty: 6 on 07/28/2014 by Cooper Shelley MD at [facility] DEVICE Right: SKULL [employer] [place] 04.503.10 4.01 / / Lead Linear 3-4 8 Contact 50cm - [id number] Implanted:Qty: 1 on 03/08/2016 by Zelalem Cohen DO at [facility] DEVICE N/A: OTHER-SEE DESCRIPTION [facility] 09/10/2017 [id number] 2500 / / [id number] Description:LUMBAR Lead Linear 3-4 8 Contact 50cm - [id number] Implanted:Qty: 1 on 03/08/2016 by Zelalem Cohen DO at [facility] DEVICE N/A: OTHER-SEE DESCRIPTION [facility] 09/10/2017 [id number] 2500 / / [id number] Description:LUMBAR Lead Linear 3-4 8 Contact 50cm - [id number] Implanted:Qty: 1 on 03/08/2016 by Zelalem Cohen DO at [facility] DEVICE N/A: OTHER-SEE DESCRIPTION [facility] 09/10/2017 [id number] 2500 / / [id number] Description:LUMBAR Lead Linear 3-4 8 Contact 50cm - [id number] Implanted:Qty: 1 on 03/08/2016 by Zelalem Cohen DO at [facility] DEVICE N/A: OTHER-SEE DESCRIPTION [facility] 09/10/2017 [id number] 2500 / / [id number] Description:LUMBAR Lead Linear 3-4 8 Contact 50cm - [id number] Implanted:Qty: 1 on 05/24/2016 by Zelalem Cohen DO at [facility] DEVICE N/A: SPINE LUMBAR POSTERIOR [facility] 01/31/2018 [id number] 2500 / [id number] / Lead Linear 3-4 8 Contact 50cm - [id number] Implanted:Qty: 1 on 05/24/2016 by Zelalem Cohen DO at [facility] DEVICE N/A: SPINE LUMBAR POSTERIOR [facility] 04/26/2018 [id number] 2500 / [id number] / Lead Linear 3-4 8 Contact 50cm - [id number] Implanted:Qty: 1 on 05/24/2016 by Zelalem Cohen DO at [facility] DEVICE N/A: SPINE LUMBAR POSTERIOR [facility] 04/26/2018 [id number] 2500 / [id number] / Lead Linear 3-4 8 Contact 50cm - [id number] Implanted:Qty: 1 on 05/24/2016 by Zelalem Cohen DO at [facility] DEVICE N/A: SPINE LUMBAR POSTERIOR [facility] 04/26/2018 [id number] 2500 / [id number] / Generator Pulse Spectra - [id number] Implanted:Qty: 1 on 05/24/2016 by Zelalem Cohen DO at [facility] DEVICE N/A: SPINE LUMBAR POSTERIOR [facility] 05/08/2018 [id number] / [id number] / [id number] [place] Clik - [id number] Implanted:Qty: 1 on 05/24/2016 by Zelalem Cohen DO at [facility] DEVICE N/A: SPINE LUMBAR POSTERIOR [facility] 05/02/2018 [id number] 60 / / [id number] Teri Tong - [id number] Implanted:Qty: 1 on 05/24/2016 by Zelalem Cohen DO at [facility] DEVICE N/A: SPINE LUMBAR POSTERIOR [facility] 02/28/2018 [id number] 60 / / [id number] Advance Directives Latest Code Status on File [...] 5:44 PM 07/28/2014 6:50 PM Care Teams Director Of Billing Relationship Specialty Start Date End Date Franklin Squires MD [address] [facility] [place] [address] PCP - General Family Practice 03/08/16
--- OUTSIDE RECORDS SUMMARY | 2023-11-25 11:17 | XMS_ITS | Encounter Summary ---
Author Name Unknown Organization [facility] Address [address] [address] Care Team Providers Care Saw Setter Name Role Phone Franklin Squires MD Primary Care Provider Encounter Details Date Type Department Care Team Description 01/06/2016 Correspondence [facility] Radiology [address] [place] [address] Radiology, Provider MRI SAFETY SHEET AND COMPATIBILITY [...] on filedocumented in this encounter Care Teams Saw Setter Relationship Specialty Start Date End Date Franklin Squires MD [address] [place] [address] [place] [address] PCP - General Family Practice 03/08/16 documented as of this encounter
--- OUTSIDE RECORDS SUMMARY | 2023-11-25 11:17 | XMS_ITS | Encounter Summary ---
Author Name Unknown Organization [facility] Address [address], [place] [address] Care Team Providers Care Dumb Waiter Operator Name Role Phone Franklin Squires MD [...] on filedocumented in this encounter Care Teams Dumb Waiter Operator Relationship Specialty Start Date End Date Franklin Squires MD [address] [place] [address] PCP - General Family Practice 03/08/16 documented as of this encounter
--- OUTSIDE RECORDS SUMMARY | 2023-11-25 11:17 | XMS_ITS | Clinical Summary ---
Author Name Unknown Organization [facility] Address [place], [place] [address] Care Team Providers Care Pipe Fitter Gas Pipe Name Role Phone Zelalem Cohen MD Unavailable [phone] May Randle MD Unavailable [phone] Franklin Squires MD Primary Care Provider Fred Craft Unavailable [phone] Diane Charles MD Unavailable [phone] Julia Ware RN Unavailable [phone] Allergies Active Allergy Reactions Criticality Noted Date [...] 4 times per day 100 Each 0 01/17/20 18 Active hospital bedIndications:Non-heali ng surgical wound, subsequent encounter Drive S[employer]ogy 8 inch low loss mattress and 1/2 rails. Semi-electric bed. Length of need 6 weeks. Bed hematology technologist:no 1 unit 0 08/22/20 18 Active acetaminophen (TYLENOL EXTRA STRGTH) 500 mg tabletIndications:fever, pain Take 1,000 mg by mouth three times daily. Max acetaminophen dose: 4000mg in 24 hrs. 0 Active sodium chloride (AYR SALINE NASL) Inhale 2-3 Sprays in the nostril(s) once daily if needed. 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 [employer] Kamran Click Ostomy Barrier with belt tabs 60mm, Cut-to-Fit 01/16 - 2 11/18. Item #[id number]. 1 Each 11 09/04/20 21 Active gabapentin (NEURONTIN) 400 mg capsuleIndications:Sever e back pain Take 1 Capsule (400 mg) by mouth three times daily. 270 Capsule 3 10/23/20 22 Active furosemide (LASIX) 40 mg tabletIndications:Bilate ral lower extremity edema Take 1 Tablet (40 mg) by mouth two times daily. 180 Tablet 3 02/12/20 23 Active baclofen (LIORESAL) 20 mg tabletIndications:Benign neoplasm of spinal cord (HC) TAKE 2 TABLETS THREE TIMES A DAY 540 Tablet 3 04/23/20 23 Active ascorbic acid, vitamin C, (Vitamin C) 500 mg tablet Take 1,000 mg by mouth two times daily with meals. 0 Active fluticasone (50 mcg per actuation) nasal solution (FLONASE) Inhale 2 Sprays into affected nostril(s) once daily if needed for Rhinitis. 0 Active Procedural Tray trayIndications:Neurogen ic bladder As directed. Irrigation tray with Piston Syringe for flushing supra pubic catheter daily 12 Each 07/16/20 23 Active potassium chloride (KLOR-CON) 20 mEq extended-release tablet (part/cryst)Indications: Hypokalemia Take 1 Tablet (20 mEq) by mouth once daily with a meal. 90 Tablet 3 08/14/20 23 Active ARIPiprazole (ABILIFY) 2 mg tabletIndications:Delusi ons of parasitosis (HC) Take 1 Tablet (2 mg) by mouth two times daily. 180 Tablet 3 08/15/20 23 Active atorvastatin (LIPITOR) 40 mg tabletIndications:Pure hypercholesterolemia Take 1 Tablet (40 mg) by mouth at bedtime. 90 Tablet 2 08/15/20 23 Active donepeziL (ARICEPT) 5 mg tabletIndications:Confus ion Take 1 Tablet (5 mg) by mouth at bedtime. 90 Tablet 0 08/15/20 23 Active famotidine (PEPCID) 20 mg tabletIndications:Gastri tis, presence of bleeding unspecified, unspecified chronicity, unspecified gastritis type TAKE 1 TABLET TWICE A DAY 180 Tablet 2 10/08/20 23 Active buPROPion (WELLBUTRIN SR) 150 mg Sustained-Release tabletIndications:Depres sive disorder TAKE 1 TABLET TWICE A DAY 180 Tablet 0 10/08/20 23 Active DULoxetine (CYMBALTA) 60 mg Delayed-release capsuleIndications:Depre ssive disorder TAKE 1 CAPSULE TWICE A DAY 180 Capsule 1 10/18/20 23 Active oxyCODONE 10 mg tabletIndications:Chroni c pain syndrome TAKE ONE TABLET BY MOUTH EVERY 6 HOURS 120 Tablet 0 10/22/20 23 Active LORazepam (ATIVAN) 0.5 mg tabIndications:Paraplegi a (HC) TAKE ONE TABLET BY MOUTH TWICE A DAY AND TAKE TWO TABLETS BY MOUTH AT BEDTIME 120 Tablet 2 10/22/20 23 Active potassium chloride (KLOR-CON M10) 10 mEq extended-release tablet (part/cryst)Indications: Hypokalemia Take 2 Tablets (20 mEq) by mouth once daily with a meal. 180 Tablet 3 10/23/20 23 Active Catheter (De La Cruz Catheter) 22 Fr miscIndications:Neurogen ic bladder As directed. 3 Each 3 11/18/19 24 Active Catheter kitIndications:Neurogeni c bladder As directed. 3 Kit 3 11/18/19 24 Active amLODIPine (NORVASC) 5 mg tabletIndications:Labile hypertension Take 1 Tablet (5 mg) by mouth once daily. 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),Anticoagulation monitoring, INR range 2-3,SDH (subdural hematoma) (HC) Take by mouth 10/26: 5 mg; Otherwise 5 mg every [place]; 7.5 mg all other days in the evening OR as directed 0 10/25/20 23 023 Discontinu ed(Reorder (E-cancel not sent)) warfarin (COUMADIN) 5 mg tabletIndications: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 Neurogenic bladder, NOS 11/04/2011 06/05/2016 Peripheral edema 06/09/2010 09/25/2016 Deep phlebothrombosis, antep artum, with delivery 04/16/2007 10/01/2007 Overview: S/P IVC Filter residential (current) use of anticoagulants 02/19/2007 09/27/2008 Depressive disorder, not elsewhere classified 02/14/20 07 01/15/2018 Abnormality of gait 12/24/2006 09/27/20 08 Urinary tract infection, site not specified 12/24/2006 01/15/2018 BENIGN ESSENTIAL HYPERTENSION 12/24/2006 04/17/2016 Overview: borderline Necrotizing fasciitis 2018 Type 2 diabetes mellitus Encounters Date Type Department Care Team Description 11/21/2023 2:00 PM LINE PRODUCTION COOK - 11/21/2023 11:59 PM LINE PRODUCTION COOK Hospital Encounter [facility] [address] [place] [address] Soft tissue infection (Primary Dx) 11/21/2023 1:00 PM LINE PRODUCTION COOK Office Visit [facility] [address] [place] [address] Franklin Squires MD Diabetes 11/21/2023 Anticoagulation (warfarin) [facility] [address] [place] [address] 1, [facility] Anticoagulation 11/20/2023 1:53 PM LINE PRODUCTION COOK - 11/20/2023 11:59 PM LINE PRODUCTION COOK Hospital Encounter [facility] [address] [place] [address] Pressure injury of sacral region, stage 3 (HC) (Primary Dx); Soft tissue infection 11/20/2023 Travel 11/19/2023 Orders Only [facility] [address] [place] [address] Yudith Mcgraw, MASTER CARPENTER 1 scan: PICC LINE, LABS AND INFUSION 11/18/2023 Orders Only [facility] Scanner 1 scan: (1-Ord) [place], MULTIPLE LAB RESULTS, 11/18/2023 11/18/2023 Anticoagulation (warfarin) [facility] [address] [place] [address] 1, [facility] Anticoagulation (Acelis ) 11/18/2023 Telephone [facility] [address] [place] [address] Franklin Squires MD Form 11/15/2023 Telephone [facility] [address] [place] [address] Franklin Squires MD Form 11/14/2023 Telephone [facility] [address] [facility] [place] [address] Franklin Squires MD Form 11/13/2023 1:00 PM LINE PRODUCTION COOK Nurse/Clinic Staff Only [facility] [address] [place] [address] Removal; Insert 11/13/2023 Refill [facility] [address] [place] [address] Diane Charles MD Medication Management 11/13/2023 Travel 11/12/2023 Telephone [facility] [address] [place] [address] Franklin Squires MD Form 11/08/2023 Anticoagulation (warfarin) [address] [place] [address] , [facility] Anticoagulation (acelis) 11/06/2023 Orders Only [facility] Scanner 1 scan: (1-Ord) [facility], INR 10/29/23 - 11/05/26, 11/06/2023 11/06/2023 Telephone [facility] [address] [place] [address] , [facility] Refill Request (Warfarin 5 mg ) 11/06/2023 Anticoagulation (warfarin) [facility] [address] [place] [address] , [facility] Anticoagulation (Chart update) 10/30/2023 Orders Only [facility] Scanner 1 scan: (1-Ord) [facility], SHARP DEBRIDEMENT DOWN TO BONE, 10/30/2023 10/29/2023 10:56 AM LINE PRODUCTION COOK - 10/29/2023 11:59 PM LINE PRODUCTION COOK Hospital Encounter [facility] [address] [place] [address] Yudith Mcgraw, MASTER CARPENTER Soft tissue infection (Primary Dx) 10/29/2023 Travel 10/29/2023 Anticoagulation (warfarin) [facility] [address] [place] [address] 1, [facility] Anticoagulation (acelis) 10/28/2023 12:28 PM LINE PRODUCTION COOK - 10/28/2023 11:59 PM LINE PRODUCTION COOK Hospital Encounter [facility] [address] [place] [address] Yudith Mcgraw NP Soft tissue infection (Primary Dx) 10/28/2023 Orders Only [facility] [address] [place] [address] Diane Charles MD <No scans attached> 10/27/2023 12:26 PM LINE PRODUCTION COOK - 10/27/2023 1:35 PM LINE PRODUCTION COOK Hospital Encounter [facility] [address] [place] [address] Yudith Mcgraw, Franklin Sorensen MD Soft tissue infection (Primary Dx) Discharge Disposition: Home Self Care 10/27/2023 Travel 10/26/2023 12:41 PM LINE PRODUCTION COOK - 10/26/2023 1:28 PM LINE PRODUCTION COOK Hospital Encounter [facility] [address] [place] [address] Yudith Mcgraw, Franklin Sorensen MD Soft tissue infection (Primary Dx) Discharge Disposition: Home Self Care 10/26/2023 Travel 10/25/2023 3:42 PM LINE PRODUCTION COOK - 10/25/2023 6:10 PM LINE PRODUCTION COOK Hospital Encounter [facility] [address] [place] [address] Yudith Mcgraw NP Discharge Disposition: Home Self Care 10/25/2023 12:40 PM LINE PRODUCTION COOK - 10/25/2023 1:30 PM LINE PRODUCTION COOK Hospital Encounter [facility] [address] [place] [address] Yudith Mcgraw, Franklin Sorensen MD Soft tissue infection (Primary Dx) Discharge Disposition: Home Self Care 10/25/2023 Travel 10/25/2023 Anticoagulation (warfarin) [facility] [address] [place] [address] , [facility] Anticoagulation (acelis) 10/24/2023 12:24 PM LINE PRODUCTION COOK - 10/24/2023 11:59 PM LINE PRODUCTION COOK Hospital Encounter [facility] [address] [place] [address] Yudith Mcgraw NP Soft tissue infection (Primary Dx) 10/24/2023 Anticoagulation (warfarin) [address] [address] , [facility] Anticoagulation (Chart update, interacting medication) 10/23/2023 1:30 PM LINE PRODUCTION COOK Nurse/Clinic Staff Only [address] [address] Removal; Insert 10/23/2023 12:22 PM LINE PRODUCTION COOK - 10/23/2023 11:59 PM LINE PRODUCTION COOK Hospital Encounter [facility] [address] [place] [address] Yudith Mcgraw NP Soft tissue infection (Primary Dx) 10/23/2023 Orders Only [facility] Scanner 1 scan: (1-Ord) [facility], CT PELVIS W CON , 10/23/2023 10/23/2023 Travel 10/23/[address] [address] Franklin Squires MD Refill Request; Medication Management (Clarification of Pot Chlor ER (Disp) Tabs) 10/22/2023 Transcribe Orders [facility] [address] [facility] [place] [address] Yudith Mcgraw NP 10/22/[address] [place] [address] Franklin Squires MD Refill Request (Oxycodone, Lorazepam) 10/18/2023 Anticoagulation (warfarin) [address] [place] [address] 1, [facility] Anticoagulation (acelis) 10/16/[address] [place] [address] Franklin Squires MD Refill Request (Duloxetine) 10/07/[address] [place] [address] Franklin Squires MD Refill Request (Famotidine, Bupropion) 10/02/2023 2:00 PM LINE PRODUCTION COOK Nurse/Clinic Staff Only [address] [address] Removal; Insert 10/02/2023 Travel 09/28/2023 Anticoagulation (warfarin) [address] [place] [address] 1, [facility] Anticoagulation (Acelis) 09/24/[address] [place] [address] Franklin Squires MD Refill Request (Oxycodone) 09/20/2023 Anticoagulation (warfarin) [address] [place] [address] 1, [facility] Anticoagulation (Acelis) 09/17/[address] [place] [address] Franklin Squires MD Anticoagulation (Annual re-enrollment ) 09/11/2023 1:30 PM CDT Nurse/Clinic Staff Only [address] [address] Removal; Insert 09/11/2023 Travel 08/30/2023 2:50 PM CDT Office Visit [address] [place] [address] Franklin Squires MD Wound Check 08/30/2023 Travel 08/30/2023 Anticoagulation (warfarin) [address] [place] [address] 1, [facility] Anticoagulation (Acelis) 08/25/[address] [place] [address] Franklin Squires MD Refill Request (Warfarin) from Last 3 Months Immunizations Name Administration Dates Next Due COVID-19 vaccine (C[employer]-Bio NTech 30mcg/0.3mL) 12YO+ BIVALENT PF, MDV 10/22/2022 COVID-19 vaccine (C[employer] NTech 30mcg/0.3mL) PF, MDV 01/25/2021,01/02/2021 Influenza A [...] Sign Reading Time Taken Comments Blood Pressure 146/81 11/21/2023 2:37 PM LINE PRODUCTION COOK Pulse 88 11/21/2023 2:37 PM LINE PRODUCTION COOK Temperature 36.4 ??C (97.6 ??F) 11/21/2023 2:37 PM CS T Respiratory Rate 20 11/21/2023 2:37 PM LINE PRODUCTION COOK Oxygen Saturation 95% 11/21/2023 2:37 PM LINE PRODUCTION COOK Inhaled Oxygen Concentration - - Weight 99.8 kg (220 lb) 08/18/2023 11:40 AM CDT Height 180.3 cm (5' 11) 08/18/2023 11:40 AM CDT Body Mass Index 30.68 08/18/2023 11:40 AM CDT Plan of Treatment Health Maintenance Due Date Last Done Comments Hepatitis C screening for ag e 18-79 1963 Zoster (shingles) series for age 50+ (1 of 2) 01/11/2016 11/16/2015, 03/23/2013 Medicare Wellness for age [...] Procedure Name Priority Date/Time Associated Diagnosis Comments SCAN CORRESP-LABORATORY RESULTS 11/21/2023 3:07 PM LINE PRODUCTION COOK HEMOGLOBIN A1C STAT 11/21/2023 1:04 PM LINE PRODUCTION COOK 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) PROTIME-INR STAT 11/21/2023 1:04 PM LINE PRODUCTION COOK 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) Anticoagulation monitoring, INR range 2-3 HOME MONITOR AC Routine 11/18/2023 12:00 AM LINE PRODUCTION COOK HOME MONITOR AC Routine 11/08/2023 12:00 AM LINE PRODUCTION COOK SCAN-LABORATORY REPORT 11/06/2023 12:00 AM LINE PRODUCTION COOK INR,POCT Routine 11/05/2023 INR,POCT Routine 11/04/2023 INR,POCT Routine 11/03/2023 INR,POCT Routine 11/02/2023 INR,POCT Routine 11/01/2023 INR,POCT Routine 10/31/2023 INR,POCT Routine 10/30/2023 SCAN-OPERATIVE/PROCED URE REPORT 10/30/2023 12:00 AM LINE PRODUCTION COOK INR,POCT Routine 10/29/2023 HOME MONITOR AC Routine 10/29/2023 12:00 AM LINE PRODUCTION COOK XR CHEST 1 VIEW PORTABLE STAT 10/25/2023 5:07 PM LINE PRODUCTION COOK HOME MONITOR AC Routine 10/25/2023 12:00 AM LINE PRODUCTION COOK SCAN-OPERATIVE/PROCED URE REPORT 10/25/2023 12:00 AM LINE PRODUCTION COOK SCAN-CT INTERPRETATION 10/23/2023 12:00 AM LINE PRODUCTION COOK HOME MONITOR AC Routine 10/18/2023 12:00 AM LINE PRODUCTION COOK HOME MONITOR AC Routine 09/28/2023 12:00 AM LINE PRODUCTION COOK HOME MONITOR AC Routine 09/20/2023 12:00 AM LINE PRODUCTION COOK HOME MONITOR AC Routine 08/30/2023 12:00 AM CDT from Last 3 Months Results * SCAN CORRESP-LABORATORY RESULTS (11/21/2023 3:07 PM LINE PRODUCTION COOK) Scanner OTHER * (ABNORMAL) PROTIME-INR (11/21/2023 1:04 PM LINE PRODUCTION COOK) INR 2.6(H) <1.3 11/21/2023 3:41 PM LINE PRODUCTION COOK [facility] PROTIME 28.2(H) 10.3 - 12.3 sec 11/21/2023 3:41 PM LINE PRODUCTION COOK [facility] Blood BLOOD SPECIMEN / Unknown Venipuncture / Unknown 11/21/2023 1:04 PM LINE PRODUCTION COOK 11/21/2023 1:05 PM LINE PRODUCTION COOK Narrative [facility] - 11/21/2023 3:41 PM LINE PRODUCTION COOK ?Therapeutic Range 2.0-3.0 for most anticoagulated patients 2.5-3.5 or 4.0 for high risk patients The INR is only used for patients on stable oral anticoagulant therapy. It makes no significant contribution to the diagnosis or treatment of patients whose Protime is prolonged for other reasons. INR results are increased when heparin levels exceed 1.0 U/mL, which corresponds to an aPTT >125 seconds if the patient is on UFH. Franklin Squires MD HEMATOLOGY Performing Organization Address City/State/[facility] Co de Phone Number [facility] [address] [place] [phone] * HEMOGLOBIN A1C MONITORING (POCT) (11/21/2023 1:04 PM LINE PRODUCTION COOK) [facility] HEMOGLOBIN A1C MONITORING (POCT) 6.1 <=6.4 % 11/21/2023 1:12 PM LINE PRODUCTION COOK [facility] Blood BLOOD SPECIMEN / Unknown Venipuncture / Unknown 11/21/2023 1:04 PM LINE PRODUCTION COOK 11/21/2023 1:05 PM LINE PRODUCTION COOK Narrative [facility] - 11/21/2023 1:12 PM LINE PRODUCTION COOK ? (<=6.9%) ? Indicates good control ? (7.0% to 7.9%) ? Indicates fair control ? (>=8.0%) ? Indicates poor control ?? NOTE: ??These thresholds are guidelines and ?individual targets may vary. Falsely low levels may be seen with: Recent Transfusion, Recent Significant Blood Loss, Hemolytic Diseases, or Falsely elevated levels may be seen with: Untreated Anemias, Splenectomy ? Franklin Squires MD CHEMISTRY [facility] [address] [place] [address] * HOME MONITOR AC (11/18/2023 12:00 AM LINE PRODUCTION COOK) Only the most recent of8 resultswithin the time period is included. PATIENT REPORTED HOME INR 2.6 2.00 - 3.00 [facility] 11/18/2023 Franklin Squires MD OTHER Performing Organization Address City/[facility]/ZIP Co de Phone Number [facility] [address] [place] [address] * SCAN-LABORATORY REPORT (11/06/2023 12:00 AM LINE PRODUCTION COOK) Scanner OTHER * INR,POCT (11/05/2023) Only the most recent of8 resultswithin the time period is included. INR 2.6 [facility] Blood BLOOD SPECIMEN / Unknown 11/05/2023 Patient Reported LABORATORY Performing Organization Address City/[facility]/ZIP Co de Phone Number [facility] [address] [place] [address] * SCAN-OPERATIVE/PROCEDURE REPORT (10/30/2023 12:00 AM LINE PRODUCTION COOK) Scanner OTHER * XR CHEST 1 VIEW PORTABLE (10/25/2023 5:07 PM LINE PRODUCTION COOK) Anatomical Region Laterality Modality HEART, THORAX, CHEST Digital Rad iography 10/25/2023 6:03 PM LINE PRODUCTION COOK Impressions 10/25/2023 6:03 PM LINE PRODUCTION COOK 1. Right PICC line is present with the tip at the cavoatrial junction. Dictated by Gordy Malik MD @ 10/25/2023 6:03:07 PM Dictated by: Gordy Malik MD @ 10/25/2023 18:03:23 (Electronically Signed) Narrative 10/25/2023 6:03 PM LINE PRODUCTION COOK For Patients: ??As a result of the [...] For Patients: As a result of the Cures Act, medical imagingexams and procedure reports are [...] IMAGING * SCAN-OPERATIVE/PROCEDURE REPORT (10/25/2023 12:00 AM LINE PRODUCTION COOK) Narrative 10/25/2023 12:00 AM LINE PRODUCTION COOK Ordered by an unspecified provider. Other Clinical Staff OTHER * SCAN-CT INTERPRETATION (10/23/2023 12:00 AM LINE PRODUCTION COOK) Anatomical Region Laterality Modality Other Scanner OTHER from Last 3 Months Additional Health Concerns [...] 12 months since positive culture): resides in acute/alf care, receiving hemodialysis, has chronic open wounds/skin damage, has long-term percutaneous indwelling medical devices Exclusions for nares collection (if <12 months since positive culture) include all of the previous exclusions plus patients on antibiotics 7 days prior to collection 03/13/2018 2023 Advance Directives Documents on File Type Date Recorded Patient General Assignment Reporter Expl anation Healthcare Directive 05/09/2023 023 Healthcare [...] Status Discussion: Per Existing Order Care Teams Pipe Fitter Gas Pipe Relationship Specialty Start Date End Date Franklin Squires MD [address] [place] [address] PCP - General Family Practice 10/18/15 Zelalem Cohen MD Physical Therapist 03/13/12 May Randle MD Physical Medicine and Rehabilitation 03/13/12 Luana, FAUSTINO Krueger [address] [place] [address] Account Development Associate 05/03/17 Diane Charles MD [address] [place] [address] Surgery - Urology 01/17/23 Julia Ware, RN [address] [place] [address] Registered Nurse 07/17/23
--- OUTSIDE RECORDS SUMMARY | 2023-11-25 11:17 | XMS_ITS | Encounter Summary ---
Author Name Unknown Organization [facility] Address [address] [address] Care Team Providers Care Air Brake Operator Name Role Phone Franklin Squires MD Primary Care Provider Encounter Details Date Type Department Care Team Description 11/23/2015 Correspondence External to External, [place] [address] LETTER [facility] Social History Tobacco Use Types Packs/Day Years [...] on filedocumented in this encounter Care Teams Air Brake Operator Relationship Specialty Start Date End Date Franklin Squires MD 100 [facility] [place] [address] PCP - General Family Practice 03/08/16 documented as of this encounter
--- OUTSIDE RECORDS SUMMARY | 2023-11-25 11:17 | XMS_ITS ---
Author Name Unknown Organization [facility] Address [address] [address] Care Team Providers Care Assistant Fitness Manager Name Role Phone Franklin Squires MD [...] 0 06/10/2014 History of anticoagulant therapy 02/17/2014 halfway current use of anticoagulant therapy 0 02/17/2014 [...] treatments are documented for this patient in [facility]. Treatments may have been administered in another system. Resolved Problems Problem Noted Date Diagnosed Date Resolved Date Gait abnormality 01/17/2012 02/09/2015 Back pain 01/17/2012 02/09/2015 Paraplegia 04/04/2011 02/09/2015 Osteoporosis 03/06/2011 02/09/2015 Urinary tract infection 12/24/200603/11
--- OUTSIDE RECORDS SUMMARY | 2023-11-25 11:17 | XMS_ITS | Encounter Summary ---
Author Name Unknown [facility] Address [address] [address] Care Team Providers Care Board Filler Name Role Phone Franklin Squires MD Primary Care Provider Encounter Details Date Type Department Care Team Description 12/11/2017 Correspondence [facility] Physical Medicine 295 [facility]. [place], [place] [id number] May Randle MD [address] [place] [address] [employer] Social History Tobacco Use [...] filedocumented in this encounter Care Teams Board Filler Relationship Specialty Start Date End Date Franklin Squires MD 100 [facility] [place] [address] PCP - General Family Practice 03/08/16 documented as of this encounter
--- OUTSIDE RECORDS SUMMARY | 2023-11-25 11:17 | XMS_ITS | Encounter Summary ---
Author Name Unknown Organization [facility] Address [address] [address] Care Team Providers Care Tape Controlled Machine Stitcher Name Role Phone Franklin Squires MD Primary Care Provider Encounter Details Date Type Department Care Team Description 07/08/2015 Correspondence [facility] Physical Therapy [address] [place] [address] Trudi Raymundo, PT [address] [place] [address] ADDENDUM FOR LETTER OF MEDICAL NECESSITY Social [...] on filedocumented in this encounter Care Teams Tape Controlled Machine Stitcher Relationship Specialty Start Date End Date Franklin Squires MD 100 [facility] [place] [address] PCP - General Family Practice 03/08/16 documented as of this encounter
--- OUTSIDE RECORDS SUMMARY | 2023-11-25 11:17 | XMS_ITS | Encounter Summary ---
Author Name Unknown Organization [facility] Address [address], [place] [address] Care Team Providers Care Welt Edge Rounder Name Role Phone Franklin Squires MD Primary Care Provider [phone] Encounter Details Date Type Department Care Team Description 02/09/2016 Correspondence [facility] 401 NeuroSurgery 401 [facility]. [place], [place] [phone] Jodi Aguila PA-C [address] [place] [address] PATIENT LIFT PRESCRIPTION Social History Tobacco Use [...] filedocumented in this encounter Care Teams Welt Edge Rounder Relationship Specialty Start Date End Date [facility]ires MD 100 [facility] [address] PCP - General Family Practice 03/08/16 documented as of this encounter
--- OUTSIDE RECORDS SUMMARY | 2023-11-25 11:17 | XMS_ITS | Encounter Summary ---
Author Name Unknown Organization [facility] Address [address], [place] [address] Care Team Providers Care Bliss Press Operator Name Role Phone Franklin Squires MD Primary Care Provider [phone] Encounter Details Date Type Department Care Team Description 06/07/2015 Correspondence [facility] Radiology [address] [place] [address] Radiology, Provider MRI SAFETY SHEET AND COMPATIBILITY [...] on filedocumented in this encounter Care Teams Bliss Press Operator Relationship Specialty Start Date End Date Franklin Squires MD 100 [facility] [place] [address] PCP - General Family Practice 03/08/16 documented as of this encounter
--- OUTSIDE RECORDS SUMMARY | 2023-11-25 11:18 | XMS_ITS | Encounter Summary ---
Author Name Unknown Organization [facility] Address [address] [place] [address] Care Team Providers Care Motel Maid Name Role Phone Franklin Squires MD Primary Care Provider Encounter Details Date Type Department Care Team Description 06/04/2014 Correspondence [facility] 401 Interventional Pain Management 401 [place] [address] Zelalem Cohen, DO [address] [place] [address] MEDICAID PT INFORMATION EMPI RECOVERY Social History [...] on filedocumented in this encounter Care Teams Motel Maid Relationship Specialty Start Date End Date Franklin Squires MD 100 [facility] [place] [address] PCP - General Family Practice 03/08/16 documented as of this encounter
--- OUTSIDE RECORDS SUMMARY | 2023-11-25 11:18 | XMS_ITS | Encounter Summary ---
Author Name Unknown Organization [facility] Address [address] [address] Care Team Providers Care Gas Line Installer Name Role Phone Franklin Squires MD Primary Care Provider Encounter Details Date Type Department Care Team Description 07/28/2014 Outside Hospital External to External, Provider No address [address] ER VISIT/TRANSFER Social History Tobacco Use [...] filedocumented in this encounter Care Teams Gas Line Installer Relationship Specialty Start Date End Date Franklin Squires MD [address] [place] [address] [place] [address] PCP - General Family Practice 03/08/16 documented as of this encounter
--- OUTSIDE RECORDS SUMMARY | 2023-11-25 11:18 | XMS_ITS | Encounter Summary ---
Author Name Unknown Organization [facility] Address [address] [place] [address] Care Team Providers Care Gas Worker Name Role Phone Franklin Squires MD Primary Care Provider Encounter Details Date Type Department Care Team Description 08/20/2014 Outside Hospital External to [facility]-ADMIT H/P Social History Tobacco Use Types [...] filedocumented in this encounter Care Teams Gas Worker Relationship Specialty Start Date End Date Franklin Squires MD 100 [facility] [place] [address] PCP - General Family Practice 03/08/16 documented as of this encounter
--- OUTSIDE RECORDS SUMMARY | 2023-11-25 11:18 | XMS_ITS | Encounter Summary ---
Author Name Unknown Organization [facility] Address [address] [place] [address] Care Team Providers Care Vp Of Digital Marketing Name Role Phone Franklin Squires MD Primary Care Provider Encounter Details Date Type Department Care Team Description 08/20/2014 Outside Hospital External to [facility] Social History Tobacco Use Types [...] on filedocumented in this encounter Care Teams Vp Of Digital Marketing Relationship Specialty Start Date End Date Franklin Squires MD 100 [facility] [place] [address] PCP - General Family Practice 03/08/16 documented as of this encounter
--- OUTSIDE RECORDS SUMMARY | 2023-11-25 11:18 | XMS_ITS | Encounter Summary ---
Author Name Unknown Organization [facility] Address [address], [place] [address] Care Team Providers Care Residence Counselor Name Role Phone Franklin Squires MD Primary Care Provider Encounter Details Date Type Department Care Team Description 03/11/2014 Correspondence [facility] 401 Interventional Pain Management 401 [facility] [place] [address] Zelalem Cohen, DO [address] [place] [address] EMPI Social History Tobacco Use Types Packs/Day [...] on filedocumented in this encounter Care Teams Residence Counselor Relationship Specialty Start Date End Date Franklin Squires MD 100 [facility] [place] [address] PCP - General Family Practice 03/08/16 documented as of this encounter
--- OUTSIDE RECORDS SUMMARY | 2023-11-25 11:18 | XMS_ITS | Encounter Summary ---
Author Name Unknown Organization [facility] Address [address] [address] Care Team Providers Care Motor Vehicle License Clerk Name Role Phone Franklin Squires MD Primary Care Provider [phone] Encounter Details Date Type Department Care Team Description 06/11/2014 Correspondence [facility] 401 Physical Medicine 401 [facility] [place] [address] May Randle MD [address] [place] [address] [facility] Social History Tobacco Use Types Packs/Day [...] on filedocumented in this encounter Care Teams Motor Vehicle License Clerk Relationship Specialty Start Date End Date Franklin Squires MD 100 [facility] [place] [address] PCP - General Family Practice 03/08/16 documented as of this encounter
--- OUTSIDE RECORDS SUMMARY | 2023-11-25 11:18 | XMS_ITS | Encounter Summary ---
Author Name Unknown Organization [facility] Address [address] [address] Care Team Providers Care Director Of Agriculture Name Role Phone Franklin Squires MD Primary Care Provider Encounter Details Date Type Department Care Team Description 02/05/2014 Correspondence [facility] Physical Therapy [address] [place] [address] Trudi Raymundo, PT [address] [place] [address] LETTER OF MEDICAL NECESSITY FOR A WHEELCHAIR [...] in this encounter Care Teams Director Of Agriculture Relationship Specialty Start Date End Date Franklin Squires MD 100 [facility] [place] [address] PCP - General Family Practice 03/08/16 documented as of this encounter
--- OUTSIDE RECORDS SUMMARY | 2023-11-25 11:18 | XMS_ITS | Encounter Summary ---
Author Name Unknown Organization [facility] Address [address] [address] Care Team Providers Care Manager Work Name Role Phone Franklin Squires MD Primary Care Provider Encounter Details Date Type Department Care Team Description 12/16/2013 Correspondence [facility] Radiology [address] [place] [address] Radiology, Provider MRI SAFETY SHEET AND COMPATIBILITY [...] Radiology, Provider - 12/16/2013 12:00 AM CST D ADJUSTER documented in this encounter Plan of Treatment Not on file documented as of this encounter Visit Diagnoses Not on filedocumented in this encounter Care Teams Manager Work Relationship Specialty Start Date End Date Franklin Squires MD 100 [facility] [place] [address] PCP - General Family Practice 03/08/16 documented as of this encounter
--- OUTSIDE RECORDS SUMMARY | 2023-11-25 11:18 | XMS_ITS | Encounter Summary ---
Author Name Unknown Organization [facility] Address [address] [address] Care Team Providers Care Casting Machine Service Operator Name Role Phone Franklin Squires MD Primary Care Provider [phone] Encounter Details Date Type Department Care Team Description 11/13/2012 Correspondence [facility] Radiology [address] [place] [address] Radiology, Provider MRI SAFETY SHEET AND COMPATIBILITY [...] RADIOLOGY, PROVIDER - 11/13/2012 12:00 AM CST GER SHIFT documented in this encounter Plan of Treatment Not on file documented as of this encounter Visit Diagnoses Not on filedocumented in this encounter Care Teams Casting Machine Service Operator Relationship Specialty Start Date End Date Franklin Squires MD 100 [facility] [place] [address] PCP - General Family Practice 03/08/16 documented as of this encounter
--- OUTSIDE RECORDS SUMMARY | 2023-11-25 11:18 | XMS_ITS | Encounter Summary ---
Author Name Unknown Organization [facility] Address [address], [place] [address] Care Team Providers Care Cerner Analyst Name Role Phone Franklin Squires MD Primary Care Provider Encounter Details Date Type Department Care Team Description 12/14/2014 Correspondence [facility] 401 Physical Medicine 401 [place] [address] May Randle MD [address] [place] [address] DETAILED PRODUCT DESCRIPTION Social History Tobacco Use [...] on filedocumented in this encounter Care Teams Cerner Analyst Relationship Specialty Start Date End Date Franklin Squires MD 100 [facility] [place] [address] PCP - General Family Practice 03/08/16 documented as of this encounter
--- OUTSIDE RECORDS SUMMARY | 2023-11-25 11:18 | XMS_ITS | Encounter Summary ---
Author Name Unknown Organization [facility] Address [address] [place] [address] Care Team Providers Care Cold Saw Operator Name Role Phone Franklin Squires MD Primary Care Provider [phone] Encounter Details Date Type Department Care Team Description 10/26/2013 Correspondence [facility] Physical Therapy [address] [place] [address] Trudi Raymundo, PT [address] [place], [place] [id number] LETTER OF MEDICAL NECESSITY Social History Tobacco [...] Raymundo, PT - 10/26/2013 12:00 AM CST ICAL ONCOLOGIST documented in this encounter Plan of Treatment Not on file documented as of this encounter Visit Diagnoses Not on filedocumented in this encounter Care Teams Cold Saw Operator Relationship Specialty Start Date End Date Franklin Squires MD 100 [facility] [place] [address] PCP - General Family Practice 03/08/16 documented as of this encounter
--- OUTSIDE RECORDS SUMMARY | 2023-11-25 11:18 | XMS_ITS | Encounter Summary ---
Author Name Unknown Organization [facility] Address [address] [address] Care Team Providers Care Psychiatric Clinician Name Role Phone Franklin Squires MD Primary Care Provider [phone] Encounter Details Date Type Department Care Team Description 05/04/2014 Correspondence [facility] 401 Physical Medicine 401 [facility]. [place], [place] [phone] May Randle MD [address] [place] [address] LETTER OF MEDICAL NECESSITY FOR A WHEELCHAIR [...] on filedocumented in this encounter Care Teams Psychiatric Clinician Relationship Specialty Start Date End Date Franklin Squires MD 100 [facility] [place] [address] PCP - General Family Practice 03/08/16 documented as of this encounter
--- OUTSIDE RECORDS SUMMARY | 2023-11-25 11:18 | XMS_ITS | Encounter Summary ---
Author Name Unknown Organization [facility] Address [address] [place] [address] Care Team Providers Care Senior Storage Engineer Name Role Phone Franklin Squires MD Primary Care Provider [phone] Encounter Details Date Type Department Care Team Description 01/08/2013 Scanned History External to Transferred Record, Provider [facility] Social History Tobacco Use Types Packs/Day Years [...] filedocumented in this encounter Care Teams Senior Storage Engineer Relationship Specialty Start Date End Date Franklin Squires MD 100 [facility] [address] PCP - General Family Practice 03/08/16 documented as of this encounter
--- OUTSIDE RECORDS SUMMARY | 2023-11-25 11:18 | XMS_ITS | Encounter Summary ---
Author Name Unknown Organization [facility] Address [address] [address] Care Team Providers Care Pit Clerk Name Role Phone Franklin Squires MD Primary Care Provider [phone] Encounter Details Date Type Department Care Team Description 11/10/2014 Correspondence [facility] Physical Therapy [address] [place] [address] Trudi Raymundo, PT [address] [place] [address] LETTER OF MEDICAL NECESSITY Social History Tobacco [...] filedocumented in this encounter Care Teams Pit Clerk Relationship Specialty Start Date End Date Franklin Squires MD 100 [facility] [address] PCP - General Family Practice 03/08/16 documented as of this encounter
--- OUTSIDE RECORDS SUMMARY | 2023-11-25 11:18 | XMS_ITS | Encounter Summary ---
Author Name Unknown Organization [facility] Address [address] [place] [address] Care Team Providers Care Ranch Cook Name Role Phone Franklin Squires MD Primary Care Provider [phone] Encounter Details Date Type Department Care Team Description 08/22/2014 Outside Hospital External to [facility] HOSP-D/C SUMMARY Social History Tobacco Use Types [...] on filedocumented in this encounter Care Teams Ranch Cook Relationship Specialty Start Date End Date Franklin Squires MD 100 [facility] [place] [address] PCP - General Family Practice 03/08/16 documented as of this encounter
--- OUTSIDE RECORDS SUMMARY | 2023-11-25 11:18 | XMS_ITS | Encounter Summary ---
Author Name Unknown Organization [facility] Address [address] [place] [address] Care Team Providers Care Commercial Real Estate Manager Name Role Phone Franklin Squires MD Primary Care Provider [phone] Encounter Details Date Type Department Care Team [...] filedocumented in this encounter Care Teams Commercial Real Estate Manager Relationship Specialty Start Date End Date Franklin Squires MD [address] [place], [place] [address] [address] PCP - General Family Practice 03/08/16 documented as of this encounter
--- OUTSIDE RECORDS SUMMARY | 2023-11-25 11:18 | XMS_ITS | Encounter Summary ---
Author Name Unknown Organization [facility] Address [address] [place] [address] Care Team Providers Care Woven Paper Hat Mender Name Role Phone Franklin Squires MD Primary [...] on filedocumented in this encounter Care Teams Woven Paper Hat Mender Relationship Specialty Start Date End Date Franklin Squires MD 100 [facility] [place] [address] PCP - General Family Practice 03/08/16 documented as of this encounter
--- OUTSIDE RECORDS SUMMARY | 2023-11-25 11:18 | XMS_ITS | Encounter Summary ---
Author Name Unknown Organization [facility] Address [address], [place] [address] Care Team Providers Care Technology Development Intern Name Role Phone Franklin Squires MD Primary Care Provider Encounter Details Date Type Department Care Team Description 09/07/2014 Correspondence [facility] Radiology [address] [place] [address] Radiology, Provider MRI SAFETY SHEET AND COMPATIBILITY [...] on filedocumented in this encounter Care Teams Technology Development Intern Relationship Specialty Start Date End Date Franklin Squires MD 100 [facility] [place] [address] PCP - General Family Practice 03/08/16 documented as of this encounter
--- OUTSIDE RECORDS SUMMARY | 2023-11-25 11:18 | XMS_ITS | Encounter Summary ---
Author Name Unknown Organization [facility] Address [address] [address] Care Team Providers Care Factory Worker Name Role Phone Franklin Squires MD Primary Care Provider Encounter Details Date Type Department Care Team Description 04/20/2013 Correspondence [facility] Radiology [address] [place] [address] Radiology, Provider MRI SAFETY SHEET AND COMPATIBILITY [...] on filedocumented in this encounter Care Teams Factory Worker Relationship Specialty Start Date End Date Franklin Squires MD 100 [facility] [place] [address] PCP - General Family Practice 03/08/16 documented as of this encounter
--- OUTSIDE RECORDS SUMMARY | 2023-11-25 11:18 | XMS_ITS | Encounter Summary ---
Author Name Unknown Organization [facility] Address [address], [place] [address] Care Team Providers Care Slot Operations Manager Name Role Phone Franklin Squires MD Primary Care Provider [phone] Encounter Details Date Type Department Care Team Description 04/24/2012 Correspondence [facility] Radiology [address] [place] [address] Radiology, Provider MRI SAFETY SHEET AND COMPATIBILITY [...] on filedocumented in this encounter Care Teams Slot Operations Manager Relationship Specialty Start Date End Date Franklin Squires MD 100 [facility] [place] [address] PCP - General Family Practice 03/08/16 documented as of this encounter
--- OUTSIDE RECORDS SUMMARY | 2023-11-25 11:18 | XMS_ITS | Encounter Summary ---
Author Name Unknown Organization [facility] Address [address] [place] [address] Care Team Providers Care Director Of Safety Name Role Phone Franklin Squires MD Primary Care Provider [phone] Encounter Details Date Type Department Care Team Description 07/23/2013 Correspondence [facility] 401 Interventional Pain Management 401 [facility] [place] [address] Zelalem Cohen DO [address] [place] [address] [employer] Social History Tobacco Use Types [...] Cohen MD - 07/23/2013 12:00 AM CDT ENT SERVICE ASSOCIATE documented in this encounter Plan of Treatment Not on file documented as of this encounter Visit Diagnoses Not on filedocumented in this encounter Care Teams Director Of Safety Relationship Specialty Start Date End Date Franklin Squires MD [address] [place] [address] PCP - General Family Practice 03/08/16 documented as of this encounter
--- OUTSIDE RECORDS SUMMARY | 2023-11-25 11:18 | XMS_ITS | Encounter Summary ---
Author Name Unknown Organization [facility] Address [address] [place] [address] Care Team Providers Care Admitting Counselor Name Role Phone Franklin Squires MD Primary Care Provider Encounter Details Date Type Department Care Team Description 09/17/2013 Correspondence External to External, [place] [address] EMPOWERMENT RULES Social History Tobacco Use Types [...] External, Provider - 09/17/2013 12:00 AM CST STORE REPRESENTATIVE documented in this encounter Plan of Treatment Not on file documented as of this encounter Visit Diagnoses Not on filedocumented in this encounter Care Teams Admitting Counselor Relationship Specialty Start Date End Date Franklin Squires MD 100 [facility] [place] [facility] [place] [address] PCP - General Family Practice 03/08/16 documented as of this encounter
== END 2023-11-25 11:12 | disposition home or self-care (01) ==
LOC: WOUND 11:11
PROVIDERS: PCP Family Medicine; Visit Provider Nurse Practitioner Family
DX: M86.18 Other acute osteomyelitis, other site (principal); L89.324 Pressure ulcer of left buttock, stage 4
CPT/HCPCS: 11042; 97605

== ENCOUNTER 2023-12-02 12:39 | Outpatient (CLI) | payer MEDICARE, OTHER, SELFPAY ==
--- OUTSIDE RECORDS SUMMARY | 2023-12-02 12:42 | XMS_ITS ---
Author Name Unknown Organization [facility] Address [address], [place] [address] Care Team Providers Care Powder Truck Driver Name Role Phone Franklin Squires MD Primary Care Provider [phone] Active Problems Problem Noted Date Diagnosed Date [...] 0 06/10/2014 History of anticoagulant therapy 02/17/2014 [facility] current use of anticoagulant therapy 0 02/17/2014 [...] treatments are documented for this patient in [facility]. Treatments may have been administered in another system. Resolved Problems Problem Noted Date Diagnosed Date Resolved Date Gait abnormality 01/17/2012 02/09/2015 Back pain 01/17/2012 02/09/2015 Paraplegia 04/04/2011 02/09/2015 Osteoporosis 03/06/2011 02/09/2015 Urinary tract infection 12/24/200603/11
--- OUTSIDE RECORDS SUMMARY | 2023-12-02 12:42 | XMS_ITS | Clinical Summary ---
Author Name Unknown Organization [facility] Address [address] [place] [address] Care Team Providers Care Signs Sales Representative Name Role Phone Franklin Squires MD Primary Care Provider [phone] Source Comments You are receiving this document as you are listed as the primary care provider,follow-up provider, or the patient has been referred to you for consultation.This is in compliance with the Medicare and[facility] Hospital[facility] EHR Incentive Program,which states Providers who transition their patient to another setting of careor provider of care or refers their patient to another provider of care shouldprovide summary care record for each transition of care or referral. [facility] Allergies Active Allergy Reactions Criticality Noted Date [...] 0 06/10/2014 History of anticoagulant therapy 02/17/2014 penitentiary current use of anticoagulant therapy 0 02/17/2014 [...] Comments Blood Pressure 120/63 01/18/2022 12:59 PM HVAC TECHNICIAN Pulse 87 01/18/2022 12:59 PM HVAC TECHNICIAN Temperature 36.3 ??C (97.4 ??F) 01/18/2022 12:59 [...] this topic Medical Devices Implanted Type Area Leaf Fat Scraper Device Identifier Shelf Expiration Date Model / Serial / Lot [id number] 4ml Tisseel Explanted:([place] ntity not on file) BIOLOGIC N/A: NECK Lynne Fenwall 09/10/2011 [id number] / [id number] / [id number] Description:posterior Cath Intrathecal Indura - [id number] Implanted:Qty: 1 on 05/09/2010 at [facility] DEVICE Right: LUMBAR SPINE Mojo Mobility 01/18/2012 8709 / N/A / [id number] Cath Intrathecal Indura - [id number] Implanted:Qty: 1 on 05/29/2010 at [facility] DEVICE ApiFix Carlos 8709 / / Scr Indira Conic 7.3x80 - [id number] Implanted:Qty: 1 on 03/13/2011 at [facility] DEVICE Right: FEMUR DISTAL [employer] 02.207.28 0 / NONE / NONE Plt Lcp Cndl Rt 4.5x170 6h - [id number] Implanted:Qty: 1 on 03/13/2011 at [facility] DEVICE Right: FEMUR DISTAL [employer] 222.656 / NONE / NONE Description:6 hole 170mm rig ht 4.5mm lcp condylar plate Scr Didier Ss Sftp 4.5x40 - [id number] Implanted:Qty: 1 on 03/13/2011 at [facility] DEVICE Left: FEMUR DISTAL [employer] 214.840 / NONE / NONE Scr Didier Ss Sftp 4.5x50 - [id number] Implanted:Qty: 1 on 03/13/2011 at [facility] DEVICE Left: FEMUR DISTAL [employer] 214.850 / NONE / NONE Scr Indira Lk 5.0x80 - [id number] Implanted:Qty: 2 on 03/13/2011 at [facility] DEVICE Left: FEMUR DISTAL [employer] 02.205.08 0 / NONE / NONE Scr Indira Lk 5.0x85 - [id number] Implanted:Qty: 2 on 03/13/2011 at [facility] DEVICE Left: FEMUR DISTAL [employer] 02.205.08 5 / NONE / NONE Scr Lk Sftp T25 5.0x50 - [id number] Implanted:Qty: 1 on 03/13/2011 at [facility] DEVICE Left: FEMUR DISTAL [employer] 212.219 / NONE / NONE Scr Lk Sftp T25 5.0x60 - [id number] Implanted:Qty: 1 on 03/13/2011 at [facility] DEVICE Left: FEMUR DISTAL [employer] 212.221 / NONE / NONE Scr Indira Conic 7.3x85 - [id number] Implanted:Qty: 1 on 03/13/2011 at [facility] DEVICE Left: FEMUR DISTAL [employer] 02.207.28 5 / NONE / NONE Plt Lcp Cndl Lt 4.5x170 6h - [id number] Implanted:Qty: 1 on 03/13/2011 at [facility] DEVICE Left: FEMUR DISTAL [employer] 222.657 / NONE / NONE Description:6 hole 170mmleng th left 4.5mm lcp condylar plate. Scr Didier Sftp 3.5x60 F-Thrd - [id number] Implanted:Qty: 1 on 03/13/2011 at [facility] DEVICE Left: TIBIA PROXIMAL [employer] 204.860 / NONE / NONE Scr Star Lk Sftp 3.5x32 - [id number] Implanted:Qty: 1 on 03/13/2011 at [facility] DEVICE Left: TIBIA PROXIMAL [employer] 212.112 / NONE / NONE Scr Star Lk Sftp 3.5x55 - [id number] Implanted:Qty: 2 on 03/13/2011 at [facility] DEVICE Left: TIBIA PROXIMAL [employer] 212.123 / NONE / NONE Scr Star Lk Sftp 3.5x60 - [id number] Implanted:Qty: 2 on 03/13/2011 at [facility] DEVICE Left: TIBIA PROXIMAL [employer] 212.124 / NONE / NONE Plt Lcp M/Prox Lt 3.5x94 4h - [id number] Implanted:Qty: 1 on 03/13/2011 at [facility] DEVICE Left: TIBIA PROXIMAL [employer] 239.955 / NONE / NONE Scr Didier Ss Sftp 4.5x36 - [id number] Implanted:Qty: 1 on 03/13/2011 at [facility] DEVICE Right: FEMUR DISTAL [employer] 214.836 / NONE / NONE Scr Didier Ss Sftp 4.5x44 - [id number] Implanted:Qty: 1 on 03/13/2011 at [facility] DEVICE Right: FEMUR DISTAL [employer] 214.844 / NONE / NONE Scr Indira Lk 5.0x75 - [id number] Implanted:Qty: 1 on 03/13/2011 at [facility] DEVICE Right: FEMUR DISTAL [employer] 02.205.07 5 / NONE / NONE Scr Indira Lk 5.0x85 - [id number] Implanted:Qty: 2 on 03/13/2011 at [facility] DEVICE Right: FEMUR DISTAL [employer] 02.205.08 5 / NONE / NONE Scr Lk Sftp T25 5.0x44 - [id number] Implanted:Qty: 1 on 03/13/2011 at [facility] DEVICE Right: FEMUR DISTAL [employer] 212.216 / NONE / NONE Scr Lk Sftp T25 5.0x65 - [id number] Implanted:Qty: 1 on 03/13/2011 at [facility] DEVICE Right: FEMUR DISTAL [employer] 212.222 / NONE / NONE Plt Lp T Ti Str 4h - [id number] Implanted:Qty: 3 on 07/28/2014 by Cooper Shelley MD at [facility] DEVICE Right: SKULL [employer] [place] 421.504 / / Scr Matrix Sfdr 4mm - [id number] Implanted:Qty: 6 on 07/28/2014 by [place] Shelley MD at [facility] DEVICE Right: SKULL [employer] [place] 04.503.10 4.01 / / Lead Linear 3-4 8 Contact 50cm - [id number] Implanted:Qty: 1 on 03/08/2016 by Zelalem Cohen DO at [facility] DEVICE N/A: OTHER-SEE DESCRIPTION [facility] 09/10/2017 [id number] 2500 / / [id number] Description:LUMBAR Lead Linear 3-4 8 Contact 50cm - [id number] Implanted:Qty: 1 on 03/08/2016 by Zelalem Cohen DO at [facility] DEVICE N/A: OTHER-SEE DESCRIPTION [employer] [facility] 09/10/2017 [id number] 2500 / / [id number] Description:LUMBAR Lead Linear 3-4 8 Contact 50cm - [id number] Implanted:Qty: 1 on 03/08/2016 by Zelalem Cohen DO at [facility] DEVICE N/A: OTHER-SEE DESCRIPTION [facility] 09/10/2017 [id number] 2500 / / [id number] Description:LUMBAR Lead Linear 3-4 8 Contact 50cm - [id number] Implanted:Qty: 1 on 03/08/2016 by Zelalem Cohen DO at [facility] DEVICE N/A: OTHER-SEE DESCRIPTION [facility] 09/10/2017 [id number] 2500 / / [id number] Description:LUMBAR Lead Linear 3-4 8 Contact 50cm - [id number] Implanted:Qty: 1 on 05/24/2016 by Zelalem Cohen DO at [facility] DEVICE N/A: SPINE LUMBAR POSTERIOR [employer] [facility] 01/31/2018 [id number] 2500 / [id number] / Lead Linear 3-4 8 Contact 50cm - [id number] Implanted:Qty: 1 on 05/24/2016 by Zelalem Cohen DO at [facility] DEVICE N/A: SPINE LUMBAR POSTERIOR [employer] [facility] 04/26/2018 [id number] 2500 / [id number] / Lead Linear 3-4 8 Contact 50cm - [id number] Implanted:Qty: 1 on 05/24/2016 by Zelalem Cohen DO at [facility] DEVICE N/A: SPINE LUMBAR POSTERIOR [employer] [facility] 04/26/2018 [id number] 2500 / [id number] / Lead Linear 3-4 8 Contact 50cm - [id number] Implanted:Qty: 1 on 05/24/2016 by Zelalem Cohen DO at [facility] DEVICE N/A: SPINE LUMBAR POSTERIOR [employer] [facility] 04/26/2018 [id number] 2500 / [id number] / Generator Pulse Spectra - [id number] Implanted:Qty: 1 on 05/24/2016 by Zelalem Cohen DO at [facility] DEVICE N/A: SPINE LUMBAR POSTERIOR [employer] [facility] 05/08/2018 [id number] / [id number] / [id number] [place] Clik - [id number] Implanted:Qty: 1 on 05/24/2016 by Zelalem Cohen DO at [facility] DEVICE N/A: SPINE LUMBAR POSTERIOR [employer] [facility] 05/02/2018 [id number] 60 / / [id number] Teri Tong - [id number] Implanted:Qty: 1 on 05/24/2016 by Zelalem Cohen DO at [facility] DEVICE N/A: SPINE LUMBAR POSTERIOR [facility] 02/28/2018 [id number] 60 / / [id number] Advance Directives Latest Code Status on File [...] 5:44 PM 07/28/2014 6:50 PM Care Teams Signs Sales Representative Relationship Specialty Start Date End Date Franklin Squires MD 100 [facility] [place] [address] PCP - General Family Practice 03/08/16
--- OUTSIDE RECORDS SUMMARY | 2023-12-02 12:42 | XMS_ITS | Encounter Summary ---
Author Name Unknown Organization [facility] Address [address] [place] [address] Care Team Providers Care Dragline Operator Helper Name Role Phone Franklin Squires MD Primary Care Provider Encounter Details Date Type Department Care Team Description 02/09/2016 [facility] 401 NeuroSurgery 401 [facility]. [place], [place] [id number] Jodi Aguila PA-C [address] [place] [address] PATIENT LIFT PRESCRIPTION Social History Tobacco Use [...] on filedocumented in this encounter Care Teams Dragline Operator Helper Relationship Specialty Start Date End Date Franklin Squires MD 100 [facility] [place] [address] PCP - General Family Practice 03/08/16 documented as of this encounter
--- OUTSIDE RECORDS SUMMARY | 2023-12-02 12:42 | XMS_ITS | Encounter Summary ---
Author Name Unknown Organization [facility] Address [address] [address] Care Team Providers Care Studio Potter Name Role Phone Franklin Squires MD Primary Care Provider Encounter Details Date Type Department Care Team Description 01/06/2016 Correspondence [facility] Radiology [address] [place] [address] Radiology, Provider MRI SAFETY SHEET AND COMPATIBILITY [...] on filedocumented in this encounter Care Teams Studio Potter Relationship Specialty Start Date End Date Franklin Squires MD [address] [place] [address] [place] [address] PCP - General Family Practice 03/08/16 documented as of this encounter
--- OUTSIDE RECORDS SUMMARY | 2023-12-02 12:42 | XMS_ITS | Encounter Summary ---
Author Name Unknown Organization [facility] Address [address], [place] [address] Care Team Providers Care Supervisor Paint Name Role Phone Franklin Squires MD Primary Care Provider [phone] Encounter Details Date Type Department Care Team Description 12/11/[address] [facility] Physical Medicine 295 [facility]. [place], [place] [phone] May Randle MD [address] [place] [address] HANDI MEDICAL [employer]PPLY Social History Tobacco Use [...] filedocumented in this encounter Care Teams Supervisor Paint Relationship Specialty Start Date End Date Franklin Squires MD 100 [facility] [place] [address] PCP - General Family Practice 03/08/16 documented as of this encounter
--- OUTSIDE RECORDS SUMMARY | 2023-12-02 12:42 | XMS_ITS | Encounter Summary ---
Author Name Unknown Organization [facility] Address [address] [place] [address] Care Team Providers Care Hand Molder Meat Name Role Phone Franklin Squires MD Primary [...] filedocumented in this encounter Care Teams Hand Molder Meat Relationship Specialty Start Date End Date Franklin Squires MD [address] [place], [place] [address] [address] PCP - General Family Practice 03/08/16 documented as of this encounter
--- OUTSIDE RECORDS SUMMARY | 2023-12-02 12:42 | XMS_ITS | Encounter Summary ---
Author Name Unknown Organization [facility] Address [address] [place] [address] Care Team Providers Care Hide Buyer Name Role Phone Franklin Squires MD Primary [...] on filedocumented in this encounter Care Teams Hide Buyer Relationship Specialty Start Date End Date Franklin Squires MD [address] [place], [place] [address] [address] PCP - General Family Practice 03/08/16 documented as of this encounter
--- OUTSIDE RECORDS SUMMARY | 2023-12-02 12:43 | XMS_ITS | Encounter Summary ---
Author Name Unknown Organization [facility] Address [address], [place] [address] Care Team Providers Care Contact Center Specialist Name Role Phone Franklin Squires MD Primary Care Provider [phone] Encounter Details Date Type Department Care Team Description 05/04/2014 [facility] 401 Physical Medicine 401 [facility] [place]. [place], [place] [phone] May Randle MD [address] [place] [address] LETTER OF MEDICAL NECESSITY FOR A WHEELCHAIR [...] on filedocumented in this encounter Care Teams Contact Center Specialist Relationship Specialty Start Date End Date Franklin Squires MD 100 [facility] [address] PCP - General Family Practice 03/08/16 documented as of this encounter
--- OUTSIDE RECORDS SUMMARY | 2023-12-02 12:43 | XMS_ITS | Encounter Summary ---
Author Name Unknown Organization [facility] Address [address] [place] [address] Care Team Providers Care Computer Lab Aide Name Role Phone Franklin Squires MD Primary Care Provider [phone] Encounter Details Date Type Department Care Team [...] filedocumented in this encounter Care Teams Computer Lab Aide Relationship Specialty Start Date End Date Franklin Squires MD [address] [place], [place] [address] [address] PCP - General Family Practice 03/08/16 documented as of this encounter
--- OUTSIDE RECORDS SUMMARY | 2023-12-02 12:43 | XMS_ITS | Encounter Summary ---
Author Name Unknown Organization [facility] Address [address], [place] [address] Care Team Providers Care Clinical Investigator Name Role Phone Franklin Squires MD Primary Care Provider Encounter Details Date Type Department Care Team Description 06/07/[address] [facility] Radiology [address] [place] [address] Radiology, Provider MRI SAFETY SHEET AND COMPATIBILITY [...] filedocumented in this encounter Care Teams Clinical Investigator Relationship Specialty Start Date End Date Franklin Squires MD 100 [facility] [place] [address] PCP - General Family Practice 03/08/16 documented as of this encounter
--- OUTSIDE RECORDS SUMMARY | 2023-12-02 12:43 | XMS_ITS | Encounter Summary ---
Author Name Unknown Organization [facility] Address [address], [place] [address] Care Team Providers Care Television Maintenance Man Name Role Phone Franklin Squires MD Primary Care Provider Encounter Details Date Type Department Care Team Description 06/11/2014 [facility] 401 Physical Medicine 401 [place] [address] May Randle MD 295 [place] [address] [facility] Social History Tobacco Use Types Packs/Day Years [...] on filedocumented in this encounter Care Teams Television Maintenance Man Relationship Specialty Start Date End Date Franklin Squires MD 100 [facility] [place] [address] PCP - General Family Practice 03/08/16 documented as of this encounter
--- OUTSIDE RECORDS SUMMARY | 2023-12-02 12:43 | XMS_ITS | Encounter Summary ---
Author Name Unknown Organization [facility] Address [address] [place] [address] Care Team Providers Care Lamination Spinner Name Role Phone Franklin Squires MD Primary Care Provider [phone] Encounter Details Date Type Department Care Team Description 10/26/2013 Correspondence [facility] Physical Therapy [address] [place] [address] Trudi Raymundo, PT [address] [place], [place] [phone] LETTER OF MEDICAL NECESSITY Social History Tobacco [...] Raymundo, PT - 10/26/2013 12:00 AM CST ING EQUIPMENT REPAIRER documented in this encounter Plan of Treatment Not on file documented as of this encounter Visit Diagnoses Not on filedocumented in this encounter Care Teams Lamination Spinner Relationship Specialty Start Date End Date Franklin Squires MD 100 [facility] [place] [address] PCP - General Family Practice 03/08/16 documented as of this encounter
--- OUTSIDE RECORDS SUMMARY | 2023-12-02 12:43 | XMS_ITS | Encounter Summary ---
Author Name Unknown Organization [facility] Address [address] [place] [address] Care Team Providers Care Freelance Interpreter/Translator Name Role Phone Franklin Squires MD Primary Care Provider [phone] Encounter Details Date Type Department Care Team Description 08/20/2014 Outside Hospital External to [facility] Social History Tobacco Use Types [...] on filedocumented in this encounter Care Teams Freelance Interpreter/Translator Relationship Specialty Start Date End Date Franklin Squires MD 100 [facility] [place] [address] PCP - General Family Practice 03/08/16 documented as of this encounter
--- OUTSIDE RECORDS SUMMARY | 2023-12-02 12:43 | XMS_ITS | Encounter Summary ---
Author Name Unknown Organization [facility] Address [address] [address] Care Team Providers Care Senior Loss Control Specialist Name Role Phone Franklin Squires MD Primary Care Provider Encounter Details Date Type Department Care Team Description 11/23/2015 Correspondence External to External, [place] [address] LETTER [facility] Social History Tobacco Use Types Packs/Day Years [...] filedocumented in this encounter Care Teams Senior Loss Control Specialist Relationship Specialty Start Date End Date Franklin Squires MD 100 [facility] [place] [address] PCP - General Family Practice 03/08/16 documented as of this encounter
--- OUTSIDE RECORDS SUMMARY | 2023-12-02 12:43 | XMS_ITS | Encounter Summary ---
Author Name Unknown Organization [facility] Address [address] [place] [address] Care Team Providers Care Nascar Driver Name Role Phone Franklin Squires MD Primary Care Provider Encounter Details Date Type Department Care Team Description 09/07/2014 Correspondence [facility] Radiology [address] [place] [address] Radiology, Provider MRI SAFETY SHEET AND COMPATIBILITY [...] on filedocumented in this encounter Care Teams Nascar Driver Relationship Specialty Start Date End Date Franklin Squires MD 100 [facility] [place] [address] PCP - General Family Practice 03/08/16 documented as of this encounter
--- OUTSIDE RECORDS SUMMARY | 2023-12-02 12:43 | XMS_ITS | Encounter Summary ---
Author Name Unknown Organization [facility] Address [address] [address] Care Team Providers Care Aeronautical Engineering Teacher Name Role Phone Franklin Squires MD Primary Care Provider Encounter Details Date Type Department Care Team Description 03/11/2014 [facility] 401 Interventional Pain Management 401 [facility] [place] [address] Zelalem Cohen, DO [address] [place] [address] EMPI Social History Tobacco Use Types Packs/Day [...] on filedocumented in this encounter Care Teams Aeronautical Engineering Teacher Relationship Specialty Start Date End Date Franklin Squires MD 100 [facility] [place] [address] PCP - General Family Practice 03/08/16 documented as of this encounter
--- OUTSIDE RECORDS SUMMARY | 2023-12-02 12:43 | XMS_ITS | Encounter Summary ---
Author Name Unknown Organization [facility] Address [address], [place] [address] Care Team Providers Care Noc Analyst Name Role Phone Franklin Squires MD Primary Care Provider Encounter Details Date Type Department Care Team Description 04/20/2013 Correspondence [facility] Radiology [address] [place] [address] Radiology, Provider MRI SAFETY SHEET AND COMPATIBILITY [...] on filedocumented in this encounter Care Teams Noc Analyst Relationship Specialty Start Date End Date Franklin Squires MD 100 [facility] [place] [address] PCP - General Family Practice 03/08/16 documented as of this encounter
--- OUTSIDE RECORDS SUMMARY | 2023-12-02 12:43 | XMS_ITS | Encounter Summary ---
Author Name Unknown Organization [facility] Address [address] [place] [address] Care Team Providers Care Lard Maker Name Role Phone Franklin Squires MD Primary Care Provider [phone] Encounter Details Date Type Department Care Team Description 06/04/2014 [facility] 401 Interventional Pain Management 401 [facility] [place] [address] Zelalem Cohen, DO [address] [place] [address] MEDICAID PT INFORMATION EMPI RECOVERY Social History [...] on filedocumented in this encounter Care Teams Lard Maker Relationship Specialty Start Date End Date Franklin Squires MD 100 [facility] [place] [address] PCP - General Family Practice 03/08/16 documented as of this encounter
--- OUTSIDE RECORDS SUMMARY | 2023-12-02 12:43 | XMS_ITS | Encounter Summary ---
Author Name Unknown Organization [facility] Address [address] [place] [address] Care Team Providers Care Quality Control Engineer Name Role Phone Franklin Squires MD [...] filedocumented in this encounter Care Teams Quality Control Engineer Relationship Specialty Start Date End Date Franklin Squires MD 100 [facility] [place] [address] PCP - General Family Practice 03/08/16 documented as of this encounter
--- OUTSIDE RECORDS SUMMARY | 2023-12-02 12:43 | XMS_ITS | Encounter Summary ---
Author Name Unknown Organization [facility] Address [address], [place] [address] Care Team Providers Care Perforator Loader Name Role Phone Franklin Squires MD [...] on filedocumented in this encounter Care Teams Perforator Loader Relationship Specialty Start Date End Date Franklin Squires MD [address] [facility] [place] [address] PCP - General Family Practice 03/08/16 documented as of this encounter
--- OUTSIDE RECORDS SUMMARY | 2023-12-02 12:43 | XMS_ITS | Encounter Summary ---
Author Name Unknown [facility] Address [address] [address] Care Team Providers Care Sugarcane Research Technician Name Role Phone Franklin Squires MD Primary Care Provider Encounter Details Date Type Department Care Team Description 02/05/2014 Correspondence [facility] Physical Therapy [address] [place] [address] Trudi Raymundo, PT [address] [place] [address] LETTER OF MEDICAL NECESSITY FOR A WHEELCHAIR [...] on filedocumented in this encounter Care Teams Sugarcane Research Technician Relationship Specialty Start Date End Date Franklin Squires MD 100 [facility] [place] [address] PCP - General Family Practice 03/08/16 documented as of this encounter
--- OUTSIDE RECORDS SUMMARY | 2023-12-02 12:43 | XMS_ITS | Encounter Summary ---
Author Name Unknown Organization [facility] Address [address] [place] [address] Care Team Providers Care Hand Inspector Name Role Phone Franklin Squires MD Primary Care Provider Encounter Details Date Type Department Care Team Description 01/08/2013 Scanned History External to Transferred Record, Provider [facility] Social History Tobacco Use Types Packs/Day [...] filedocumented in this encounter Care Teams Hand Inspector Relationship Specialty Start Date End Date [facility]ires MD 100 [facility] [address] PCP - General Family Practice 03/08/16 documented as of this encounter
--- OUTSIDE RECORDS SUMMARY | 2023-12-02 12:43 | XMS_ITS | Encounter Summary ---
Author Name Unknown Organization [facility] Address [address], [place] [address] Care Team Providers Care Desk Assistant Name Role Phone Franklin Squires MD Primary Care Provider [phone] Encounter Details Date Type Department Care Team Description 07/28/2014 Outside Hospital External to External, Provider No address [address] ER VISIT/TRANSFER Social History Tobacco Use [...] on filedocumented in this encounter Care Teams Desk Assistant Relationship Specialty Start Date End Date Franklin Squires MD [address] [place] [address] [place] [address] PCP - General Family Practice 03/08/16 documented as of this encounter
--- OUTSIDE RECORDS SUMMARY | 2023-12-02 12:43 | XMS_ITS | Encounter Summary ---
Author Name Unknown Organization [facility] Address [address], [place] [address] Care Team Providers Care Semiconductor Bonder Name Role Phone [place] Squires MD Primary Care Provider [phone] Encounter Details Date Type Department Care Team Description 07/08/2015 Correspondence [facility] Physical Therapy [address] [place] [address] Trudi Raymundo, PT [address] [place] [address] ADDENDUM FOR LETTER OF MEDICAL NECESSITY Social [...] filedocumented in this encounter Care Teams Semiconductor Bonder Relationship Specialty Start Date End Date [place] Squires MD 100 [facility] [place] [address] PCP - General Family Practice 03/08/16 documented as of this encounter
--- OUTSIDE RECORDS SUMMARY | 2023-12-02 12:43 | XMS_ITS | Encounter Summary ---
Author Name Unknown Organization [facility] Address [address], [place] [address] Care Team Providers Care Player Manager Name Role Phone [place] Squires MD Primary Care Provider [phone] Encounter Details Date Type Department Care Team Description 11/10/2014 Correspondence [facility] Physical Therapy [address] [place] [address] Trudi Raymundo, PT [address] [place] [address] LETTER OF MEDICAL NECESSITY Social History Tobacco [...] on filedocumented in this encounter Care Teams Player Manager Relationship Specialty Start Date End Date [place] Squires MD [address] [facility] [address] P[facility] - General Family Practice 03/08/16 documented as of this encounter
--- OUTSIDE RECORDS SUMMARY | 2023-12-02 12:43 | XMS_ITS | Encounter Summary ---
Author Name Unknown Organization [facility] Address [address], [place] [address] Care Team Providers Care Imitation Marble Mechanic Name Role Phone [place] Squires MD Primary Care Provider Encounter Details Date Type Department Care Team Description 04/24/2012 Correspondence [facility] Radiology [address] [place] [address] Radiology, Provider MRI SAFETY SHEET AND COMPATIBILITY [...] on filedocumented in this encounter Care Teams Imitation Marble Mechanic Relationship Specialty Start Date End Date [place] Squires MD 100 [facility] [place] [address] PCP - General Family Practice 03/08/16 documented as of this encounter
--- OUTSIDE RECORDS SUMMARY | 2023-12-02 12:43 | XMS_ITS | Encounter Summary ---
Author Name Unknown Organization [facility] Address [address] [address] Care Team Providers Care Casualty Underwriter Name Role Phone [place] Squires MD Primary Care Provider Encounter Details Date Type Department Care Team Description 12/14/2014 Correspondence [facility] Physical Medicine 401 [place] [address] May Randle MD [address] [place] [address] DETAILED PRODUCT DESCRIPTION Social History Tobacco Use [...] on filedocumented in this encounter Care Teams Casualty Underwriter Relationship Specialty Start Date End Date [place] Squires MD 100 [facility] [place] [address] PCP - General Family Practice 03/08/16 documented as of this encounter
--- OUTSIDE RECORDS SUMMARY | 2023-12-02 12:43 | XMS_ITS | Encounter Summary ---
Author Name Unknown Organization [facility] Address [address] [place] [address] Care Team Providers Care Business Office Assistant Name Role Phone [place] Squires MD Primary Care Provider Encounter Details Date Type Department Care Team Description 08/22/2014 Outside Hospital External to [facility] HOSP-D/C SUMMARY Social History Tobacco Use [...] filedocumented in this encounter Care Teams Business Office Assistant Relationship Specialty Start Date End Date [place] Squires MD 100 [facility] [place] [address] PCP - General Family Practice 03/08/16 documented as of this encounter
--- OUTSIDE RECORDS SUMMARY | 2023-12-02 12:43 | XMS_ITS | Encounter Summary ---
Author Name Unknown Organization [facility] Address [address] [place] [address] Care Team Providers Care Building Maintenance Repairer Name Role Phone [place] Squires MD Primary Care Provider [phone] Encounter Details Date Type Department Care Team Description 09/17/2013 Correspondence External to External, [place] [address] EMPOWERMENT RULES Social History Tobacco Use Types [...] External, Provider - 09/17/2013 12:00 AM CST CTOR OF OUTPATIENT SERVICES documented in this encounter Plan of Treatment Not on file documented as of this encounter Visit Diagnoses Not on filedocumented in this encounter Care Teams Building Maintenance Repairer Relationship Specialty Start Date End Date [place] Squires MD 100 [facility] [place] [address] PCP - General Family Practice 03/08/16 documented as of this encounter
--- OUTSIDE RECORDS SUMMARY | 2023-12-02 12:43 | XMS_ITS | Encounter Summary ---
Author Name Unknown Organization [facility] Address [address], [place] [address] Care Team Providers Care Coring Machine Operator Name Role Phone [place] Squires MD Primary Care Provider Encounter Details Date Type Department Care Team Description 11/13/2012 Correspondence [facility] Radiology [address] [place] [address] Radiology, Provider MRI SAFETY SHEET AND COMPATIBILITY [...] RADIOLOGY, PROVIDER - 11/13/2012 12:00 AM CST ASSISTANT documented in this encounter Plan of Treatment Not on file documented as of this encounter Visit Diagnoses Not on filedocumented in this encounter Care Teams Coring Machine Operator Relationship Specialty Start Date End Date [place] Squires MD 100 [facility] [place] [address] PCP - General Family Practice 03/08/16 documented as of this encounter
--- OUTSIDE RECORDS SUMMARY | 2023-12-02 12:43 | XMS_ITS | Encounter Summary ---
Author Name Unknown Organization [facility] Address [address], [place] [address] Care Team Providers Care Manager Room Name Role Phone [place] Squires MD Primary Care Provider [phone] Encounter Details Date Type Department Care Team Description 12/16/[address] [facility] Radiology [address] [place] [place] [address] Radiology, Provider MRI SAFETY SHEET AND COMPATIBILITY [...] Radiology, Provider - 12/16/2013 12:00 AM CST UTING SYSTEMS MECHANIC documented in this encounter Plan of Treatment Not on file documented as of this encounter Visit Diagnoses Not on filedocumented in this encounter Care Teams Manager Room Relationship Specialty Start Date End Date [place] Squires MD 100 [facility] [place] [address] PCP - General Family Practice 03/08/16 documented as of this encounter
--- OUTSIDE RECORDS SUMMARY | 2023-12-02 12:43 | XMS_ITS | Encounter Summary ---
Author Name Unknown Organization [facility] Address [address] [place] [address] Care Team Providers Care Human Resources Trainee Name Role Phone [place] Squires MD Primary Care Provider [phone] Encounter Details Date Type Department Care Team Description 08/20/2014 Outside Hospital External to [facility] H[facility]-H/P Social History Tobacco Use Types [...] in this encounter Care Teams Human Resources Trainee Relationship Specialty Start Date End Date [place] Squires MD [address] [facility] [address] PCP - General Family Practice 03/08/16 documented as of this encounter
--- OUTSIDE RECORDS SUMMARY | 2023-12-02 12:43 | XMS_ITS | Encounter Summary ---
Author Name Unknown Organization [facility] Address [address] [place] [address] Care Team Providers Care Expressive Art Therapist Name Role Phone [place] Squires MD Primary Care Provider [phone] Encounter Details Date Type Department Care Team Description 07/23/2013 Correspondence [facility] 401 Interventional Pain Management 401 [facility] [place] [address] Zelalem Cohen DO [address] [place] [address] EXPRESS SCRIPT Social History Tobacco Use Types [...] Cohen MD - 07/23/2013 12:00 AM CDT EXTINGUISHER REPAIRER INSPECTOR documented in this encounter Plan of Treatment Not on file documented as of this encounter Visit Diagnoses Not on filedocumented in this encounter Care Teams Expressive Art Therapist Relationship Specialty Start Date End Date [place] Squires MD [address] [place] [address] PCP - General Family Practice 03/08/16 documented as of this encounter
--- OUTSIDE RECORDS SUMMARY | 2023-12-02 12:44 | XMS_ITS | Clinical Summary ---
Author Name Unknown Organization [facility] Address [place], [place] [address] Care Team Providers Care Non Destructive Evaluation Specialist Name Role Phone Zelalem Cohen MD Unavailable May Randle MD Unavailable [phone] Franklin Squires MD Primary Care Provider Fred Craft Unavailable [phone] Diane Charles MD Unavailable [phone] Julia Ware RN Unavailable [phone] Allergies Active Allergy Reactions Criticality Noted Date [...] bedIndications:Non-heal ing surgical wound, subsequent encounter Drive [email or web address] 8 inch low loss mattress and 1/2 rails. Semi-electric bed. Length of need 6 weeks. Bed supervisor remelt:no 1 unit 0 018 Active acetaminophen (TYLENOL [...] 60mm, Cut-to-Fit 01/16 - 2 11/18. Item #[id number]. 1 Each 11 021 Active gabapentin (NEURONTIN) [...] needed for Rhinitis. 0 Active Procedural Tray trayIndications:Neuroge halina bladder As [...] A DAY 180 Capsule 1 023 Active LORazepam (ATIVAN) 0.5 mg tabIndications:Parapleg ia (HC) TAKE ONE TABLET BY MOUTH TWICE A DAY AND TAKE TWO TABLETS BY MOUTH AT BEDTIME 120 Tablet 2 023 Active potassium chloride (KLOR-CON M10) 10 mEq extended-release tablet (part/cryst)Indications :Hypokalemia Take 2 Tablets (20 mEq) by mouth once daily with a meal. 180 Tablet 3 023 Active Catheter (De La Cruz Catheter) 22 Fr miscIndications:Neuroge halina bladder As directed. 3 Each 3 024 Active Catheter kitIndications:Neurogen ic bladder As directed. 3 Kit 3 024 Active amLODIPine (NORVASC) 5 mg tabletIndications:Labil e hypertension Take 1 Tablet (5 mg) by mouth once daily. 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),Anticoagulation monitoring, INR range 2-3,SDH (subdural hematoma) (HC) Take by mouth 5 mg (5 mg x 1) every Mon, [place], Sat; 7.5 mg (7.5 mg x 1) all other days in the evening OR as directed 52 Tablet 0 024 2023 Discontinued(R eorder (E-cancel not sent)) Active Problems Problem Noted Date Diagnosed Date Suprapubic catheter 11/21/2023 Delusions of parasitosis 11/21/2023 Opioid dependence, uncomplicated 11/21/2023 Osteomyelitis, unspecified site, unspecified typ e 11/21/2023 Soft tissue infection 10/22/2023 Stage 4 pressure ulcer 10/22/2023 Peripheral neuropathy 06/24/2023 draw end hand current use of anticoagulant 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 Neurogenic bladder, NOS 11/04/201105/2016 Peripheral edema 06/09/2010 09/25/2016 Deep phlebothrombosis, antep artum, with delivery 04/16/2007 10/01/2007 Overview: S/P IVC Filter draw end hand (current) use of anticoagulants 02/19/2007 09/27/2008 Depressive disorder, not elsewhere classified 02/14/20 07 01/15/2018 Abnormality of gait 12/24/2006 09/27/20 08 Urinary tract infection, site not specified 12/24/2006 01/15/2018 BENIGN ESSENTIAL HYPERTENSION 12/24/2006 04/17/2016 Overview: borderline Necrotizing fasciitis 2018 Type 2 diabetes mellitus Encounters Date Type Department Care Team Description 11/28/[address] [phone] Franklin Squires MD Refill Request (Oxycodone) 11/28/[address] [phone] Franklin Squires MD Form 11/28/[address] [phone] Franklin Squires MD Questions (MONTENEGRIN) 11/26/2023 Anticoagulation (warfarin) [address] [phone], [facility] Anticoagulation (Acelis) 11/21/2023 2:00 PM PATIENT ESCORT - 11/21/2023 11:59 PM PATIENT ESCORT Hospital Encounter [facility] [address] [facility] [place] [address] Soft tissue infection (Primary Dx) 11/21/2023 1:00 PM PATIENT ESCORT Office Visit [facility] [address] [place] [address] Franklin Squires MD Diabetes 11/21/2023 Anticoagulation (warfarin) [facility] [address] [place] [address] , [facility] Anticoagulation 11/20/2023 1:53 PM PATIENT ESCORT - 11/20/2023 11:59 PM PATIENT ESCORT Hospital Encounter [facility] [address] [place] [address] Pressure injury of sacral region, stage 3 (HC) (Primary Dx); Soft tissue infection 11/20/2023 Travel 11/19/2023 Orders Only [facility] [address] [place] [address] Yudith Mcgraw, DEVELOPER ANALYST 1 scan: PICC LINE, LABS AND INFUSION 11/18/2023 Orders Only [facility] Scanner 1 scan: (1-Ord) [place], MULTIPLE LAB RESULTS, 11/18/2023 11/18/2023 Anticoagulation (warfarin) [facility] [address] [place] [address] , [facility] Anticoagulation (Acelis ) 11/18/2023 Telephone [facility] [address] [place] [address] Franklin Squires MD Form 11/15/2023 Telephone [facility] [address] [place] [address] Franklin Squires MD Form 11/14/[address] [place] [address] Franklin Squires MD Form 11/13/2023 1:00 PM PATIENT ESCORT Nurse/Clinic Staff Only [facility] [address] [facility] [address] [facility] [address] Removal; Insert 11/13/2023 Refill [facility] [address] [facility] [place] [address] Diane Charles MD Medication Management 11/13/2023 Travel 11/12/2023 Telephone [facility] [address] [facility] [place] [address] Franklin Squires MD Form 11/08/2023 Anticoagulation (warfarin) [address] [place] [address] 1, [facility] Anticoagulation (acelis) 11/06/2023 Orders Only [facility] Scanner 1 scan: (1-Ord) [facility], INR 10/29/23 - 11/05/26, 11/06/2023 11/06/2023 Telephone [facility] [address] [place] [address] , [facility] Refill Request (Warfarin 5 mg ) 11/06/2023 Anticoagulation (warfarin) [address] [place] [address] , [facility] Anticoagulation (Chart update) 10/30/2023 Orders Only [facility] Scanner 1 scan: (1-Ord) [facility], SHARP DEBRIDEMENT DOWN TO BONE, 10/30/2023 10/29/2023 10:56 AM PATIENT ESCORT - 10/29/2023 11:59 PM PATIENT ESCORT Hospital Encounter [facility] [address] [facility] [place] [address] Yudith Mcgraw, CLEMENT Soft tissue infection (Primary Dx) 10/29/2023 Travel 10/29/2023 Anticoagulation (warfarin) [address] [place] [address] , [facility] Anticoagulation (acelis) 10/28/2023 12:28 PM PATIENT ESCORT - 10/28/2023 11:59 PM PATIENT ESCORT Hospital Encounter [facility] [address] [place] [address] Yudith Mcgraw NP Soft tissue infection (Primary Dx) 10/28/2023 Orders Only [facility] [address] [place] [address] Diane Charles MD <No scans attached> 10/27/2023 12:26 PM PATIENT ESCORT - 10/27/2023 1:35 PM PATIENT ESCORT Hospital Encounter [facility] [address] [place] [address] Yudith Mcgraw, Franklin Sorensen MD Soft tissue infection (Primary Dx) Discharge Disposition: Home Self Care 10/27/2023 Travel 10/26/2023 12:41 PM PATIENT ESCORT - 10/26/2023 1:28 PM PATIENT ESCORT Hospital Encounter [facility] [address] [place] [address] Yudith Mcgraw, Franklin Sorensen MD Soft tissue infection (Primary Dx) Discharge Disposition: Home Self Care 10/26/2023 Travel 10/25/2023 3:42 PM PATIENT ESCORT - 10/25/2023 6:10 PM PATIENT ESCORT Hospital Encounter [facility] [address] [place] [address] Yudith Mcgraw DEVELOPER ANALYST Discharge Disposition: Home Self Care 10/25/2023 12:40 PM PATIENT ESCORT - 10/25/2023 1:30 PM PATIENT ESCORT Hospital Encounter [facility] [address] [place] [address] Yudith Mcgraw, Franklin Sorensen MD Soft tissue infection (Primary Dx) Discharge Disposition: Home Self Care 10/25/2023 Travel 10/25/2023 Anticoagulation (warfarin) [facility] [address] [place] [address] , [facility] Anticoagulation (acelis) 10/24/2023 12:24 PM PATIENT ESCORT - 10/24/2023 11:59 PM PATIENT ESCORT Hospital Encounter [facility] [address] [place] [address] Yudith Mcgraw NP Soft tissue infection (Primary Dx) 10/24/2023 Anticoagulation (warfarin) [facility] [address] [place] [address] 1, [facility] Anticoagulation (Chart update, interacting medication) 10/23/2023 1:30 PM PATIENT ESCORT Nurse/Clinic Staff Only [facility] [address] [place] [address] Removal; Insert 10/23/2023 12:22 PM PATIENT ESCORT - 10/23/2023 11:59 PM PATIENT ESCORT Hospital Encounter [facility] [address] [place] [address] Yudith Mcgraw NP Soft tissue infection (Primary Dx) 10/23/2023 Orders Only [facility] Scanner 1 scan: (1-Ord) [facility], CT PELVIS W CON , 10/23/2023 10/23/2023 Travel 10/23/[address] [phone] Franklin Squires MD Refill Request; Medication Management (Clarification of Pot Chlor ER (Disp) Tabs) 10/22/2023 Transcribe Orders [facility] [address] [place] [address] Yudith Mcgraw NP 10/22/2023 Refill [facility] [address] [place] [address] Franklin Squires MD Refill Request (Oxycodone, Lorazepam) 10/18/2023 Anticoagulation (warfarin) [address] [address] 1, [facility] Anticoagulation (acelis) 10/16/[address] [place] [address] Franklin Squires MD Refill Request (Duloxetine) 10/07/[address] [phone] Franklin Squires MD Refill Request (Famotidine, Bupropion) 10/02/2023 2:00 PM PATIENT ESCORT Nurse/Clinic Staff Only [address] [phone] Removal; Insert 10/02/2023 Travel 09/28/2023 Anticoagulation (warfarin) [address] [phone] 1, [facility] Anticoagulation (Acelis) 09/24/[address] [place] [address] Franklin Squires MD Refill Request (Oxycodone) 09/20/2023 Anticoagulation (warfarin) [address] [address] 1, [facility] Anticoagulation (Acelis) 09/17/[address] [place] [address] Franklin Squires MD Anticoagulation (Annual re-enrollment ) 09/11/2023 1:30 PM CDT Nurse/Clinic Staff Only [address] [place] [address] Removal; Insert 09/11/2023 Travel from Last 3 Months Immunizations Name Administration Dates Next Due COVID-19 vaccine ([employer] 30mcg/0.3mL) 12YO+ BIVALENT PF, MDV 10/22/2022 COVID-19 vaccine ([employer] 30mcg/0.3mL) PF, MDV 01/25/2021,01/02/2021 Influenza A (H1N1), [...] Comments Blood Pressure 146/81 11/21/2023 2:37 PM PATIENT ESCORT Pulse 88 11/21/2023 2:37 PM PATIENT ESCORT Temperature 36.4 ??C (97.6 ??F) 11/21/2023 2:37 PM CS T Respiratory Rate 20 11/21/2023 2:37 PM PATIENT ESCORT Oxygen Saturation 95% 11/21/2023 2:37 PM PATIENT ESCORT Inhaled Oxygen Concentration - - Weight 99.8 kg (220 lb) 08/18/2023 11:40 AM CDT Height 180.3 cm (5' 11) 08/18/2023 11:40 AM CDT Body Mass Index 30.68 08/18/2023 11:40 AM CDT Plan of Treatment Upcoming Encounters Date Type Department Care Team (Late st Contact Info) Description 12/19/2023 1:50 PM PATIENT ESCORT Office Visit [facility] [address] [place] [address] Franklin Squires MD [address] [place] [address] Health Maintenance Due Date Last Done Comments [...] Associated Diagnosis Comments HOME MONITOR AC Routine 11/26/2023 12:00 AM PATIENT ESCORT SCAN CORRESP-LABORATORY RESULTS 11/21/2023 3:07 PM PATIENT ESCORT HEMOGLOBIN A1C STAT 11/21/2023 1:04 PM PATIENT ESCORT 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) PROTIME-INR STAT 11/21/2023 1:04 PM PATIENT ESCORT 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) Anticoagulation monitoring, INR range 2-3 HOME MONITOR AC Routine 11/18/2023 12:00 AM PATIENT ESCORT HOME MONITOR AC Routine 11/08/2023 12:00 AM PATIENT ESCORT SCAN-LABORATORY REPORT 11/06/2023 12:00 AM PATIENT ESCORT INR,POCT Routine 11/05/2023 INR,POCT Routine 11/04/2023 INR,POCT Routine 11/03/2023 INR,POCT Routine 11/02/2023 INR,POCT Routine 11/01/2023 INR,POCT Routine 10/31/2023 INR,POCT Routine 10/30/2023 SCAN-OPERATIVE/PROCED URE REPORT 10/30/2023 12:00 AM PATIENT ESCORT INR,POCT Routine 10/29/2023 HOME MONITOR AC Routine 10/29/2023 12:00 AM PATIENT ESCORT XR CHEST 1 VIEW PORTABLE STAT 10/25/2023 5:07 PM PATIENT ESCORT HOME MONITOR AC Routine 10/25/2023 12:00 AM PATIENT ESCORT SCAN-OPERATIVE/PROCED URE REPORT 10/25/2023 12:00 AM PATIENT ESCORT SCAN-CT INTERPRETATION 10/23/2023 12:00 AM PATIENT ESCORT HOME MONITOR AC Routine 10/18/2023 12:00 AM PATIENT ESCORT HOME MONITOR AC Routine 09/28/2023 12:00 AM PATIENT ESCORT HOME MONITOR AC Routine 09/20/2023 12:00 AM PATIENT ESCORT from Last 3 Months Results * HOME MONITOR AC (11/26/2023 12:00 AM PATIENT ESCORT) Only the most recent of8 resultswithin the time period is included. PATIENT REPORTED HOME INR 3.0 2.00 - 3.00 [facility] 11/26/2023 Franklin Squires MD OTHER [facility] [address] [place] [address] * SCAN CORRESP-LABORATORY RESULTS (11/21/2023 3:07 PM PATIENT ESCORT) Scanner OTHER * (ABNORMAL) PROTIME-INR (11/21/2023 1:04 PM PATIENT ESCORT) Pathologist [facility] INR 2.6(H) <1.3 11/21/2023 3:41 PM PATIENT ESCORT [facility] PROTIME 28.2(H) 10.3 - 12.3 sec 11/21/2023 3:41 PM [facility] Blood BLOOD SPECIMEN / Unknown Venipuncture / Unknown 11/21/2023 1:04 PM PATIENT ESCORT 11/21/2023 1:05 PM PATIENT ESCORT [facility] - 11/21/2023 3:41 PM PATIENT ESCORT ?Therapeutic Range 2.0-3.0 for most anticoagulated patients [...] is on UFH. Franklin Squires MD HEMATOLOGY [facility] [address] [place] [address] * HEMOGLOBIN A1C MONITORING (POCT) (11/21/2023 1:04 PM PATIENT ESCORT) [facility] HEMOGLOBIN A1C MONITORING (POCT) 6.1 <=6.4 % 11/21/2023 1:12 PM [facility] Blood BLOOD SPECIMEN / Unknown Venipuncture / Unknown 11/21/2023 1:04 PM PATIENT ESCORT 11/21/2023 1:05 PM PATIENT ESCORT [facility] - 11/21/2023 1:12 PM PATIENT ESCORT ? (<=6.9%) ? Indicates good control ? (7.0% to 7.9%) ? Indicates fair control ? (>=8.0%) ? Indicates poor control ?? NOTE: ??These thresholds are guidelines and ?individual targets may vary. Falsely low levels may be seen with: Recent Transfusion, Recent Significant Blood Loss, Hemolytic Diseases, or Falsely elevated levels may be seen with: Untreated Anemias, Splenectomy ? Franklin Squires MD CHEMISTRY Performing Organization Address City/[facility]/ZIP Co de Phone Number [facility] [address] [place] [address] * SCAN-LABORATORY REPORT (11/06/2023 12:00 AM PATIENT ESCORT) Scanner OTHER * INR,POCT (11/05/2023) Only the most recent of8 resultswithin the time period is included. INR 2.6 [facility] Blood BLOOD SPECIMEN / Unknown 11/05/2023 Patient Reported LABORATORY Performing Organization Address [facility] Co de Phone Number [facility] [address] [place] [address] * SCAN-OPERATIVE/PROCEDURE REPORT (10/30/2023 12:00 AM PATIENT ESCORT) Scanner OTHER * XR CHEST 1 VIEW PORTABLE (10/25/2023 5:07 PM PATIENT ESCORT) Anatomical Region Laterality Modality HEART, THORAX, CHEST Digital Rad iography 10/25/2023 6:03 PM PATIENT ESCORT Impressions 10/25/2023 6:03 PM PATIENT ESCORT 1. Right PICC line is present with the tip at the cavoatrial junction. Dictated by Gordy Malik MD @ 10/25/2023 6:03:07 PM Dictated by: Gordy Malik MD @ 10/25/2023 18:03:23 (Electronically Signed) Narrative 10/25/2023 6:03 PM PATIENT ESCORT For Patients: ??As a result of the [...] IMAGING * SCAN-OPERATIVE/PROCEDURE REPORT (10/25/2023 12:00 AM PATIENT ESCORT) Narrative 10/25/2023 12:00 AM PATIENT ESCORT Ordered by an unspecified provider. Other Clinical Staff OTHER * SCAN-CT INTERPRETATION (10/23/2023 12:00 AM PATIENT ESCORT) Anatomical Region Laterality Modality Other Scanner OTHER [...] 12 months since positive culture): resides in acute/halfway care, receiving hemodialysis, has chronic open wounds/skin damage, has long-term percutaneous indwelling medical devices Exclusions for nares collection (if <12 months since positive culture) include all of the previous exclusions plus patients on antibiotics 7 days prior to collection 03/13/2018 2023 Advance Directives Documents on File Type Date Recorded Patient Weaver Hand Expl anation Healthcare Directive 05/09/2023 023 Healthcare [...] Status Discussion: Per Existing Order Care Teams Non Destructive Evaluation Specialist Relationship Specialty Start Date End Date Franklin Squires MD [address] [place] [address] PCP - General Family Practice 10/18/15 Zelalem Cohen MD Physical Therapist 03/13/12 May Randle MD Physical Medicine and Rehabilitation 03/13/12 Luana, FAUSTINO Krueger [address] [place] [address] Mechanical Laboratory Technician 05/03/17 Diane Charles MD [address] [place] [address] Surgery - Urology 01/17/23 Julia Ware, RN [address] [place] [address] Registered Nurse 07/17/23
--- OUTSIDE RECORDS SUMMARY | 2023-12-02 12:44 | XMS_ITS | Continuity of Care Document ---
Author Name [facility] Organization [facility] Care Team Providers Care Interpreter Name Role Phone [facility] Unavailable Unavailable Problems Combined list of problems from 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 It does not include entries that were removed or entered in error. Problem Status Onset Date Problem Type Date of Resolution Comments Source Abnormal liver function Active Condition [facility] Anemia ([facility] 430830939) Active Condition [facility] Anxiety ([facility] 37386564) Active Condition [facility] Autonomic dysreflexia Active [facility] Chronic Pain Syndrome ([facility] 448019141) Active Condition [facility] Colostomy present Active Condition [facility] Constipation ([facility] 27818199) Active Condition [facility] Continuous opioid dependence Active Condition [facility] COPD - Chronic Obstructive Pulmonary Disease ([facility] 44599703) Active Condition [facility] Dementia Active Condition [facility] Depression ([facility] 67662457) Active Condition [facility] Diabetes Mellitus Type 2 ([facility] 73506951) Active Condition [facility] Ependymoma of spinal cord Active Condition [facility] Hearing Loss ([facility] 42228267) Active Condition [facility] History of Deep Vein Thrombosis ([facility] 922745481) Active Condition [facility] History of pressure injury Active Condition [facility] HTN - Hypertension ([facility] 33475730) Active Condition [facility] Hyperlipidemia ([facility] 10175720) Active Condition [facility] Hyponatremia Active Condition [facility] Long-term current use of anticoagulant Active Condition [facility] Neurogenic Bladder ([facility] 353215711) Active Condition [facility] Neurogenic bowel Active Condition [facility] Osteoporosis ([facility] 32836022) Active Condition [facility] Paraplegia Active Condition [facility] Spasticity Active Condition [facility] Suprapubic urinary catheter in situ Active Condition [facility] Supraventricular tachycardia Active Condition [facility] Tinnitus ([facility] 87749349) Active Condition [facility] Vitamin D Deficiency ([facility] 3335443) Active Condition [facility] Diagnosis: ICD-10-CM Z73.6 Limitation of activities due to disability Active Diagnosis [facility] Diagnosis: ICD-10-CM G82.20 Paraplegia, unspecified Active Diagnosis [facility] Diagnosis: ICD-10-CM Z43.3 Encounter for attention to colostomy Active Diagnosis [facility] Diagnosis: ICD-10-CM Z71.3 Dietary counseling and surveillance Active Diagnosis [facility] Diagnosis: ICD-10-CM F32.A Depression, unspecified Active Diagnosis [facility] Diagnosis: ICD-10-CM R26.9 Unspecified abnormalities of gait and mobility Active Diagnosis [facility] Diagnosis: ICD-10-CM R54 Age-related physical debility Active Diagnosis [facility] Diagnosis: ICD-10-CM C72.0 Malignant neoplasm of [...] DAY NEEDED ORALLY ACTIVE Jagdish BARRETT 2022 [facility] AMLODIPINE BESYLATE (AMLODIPINE BESYLATE), 5 MG, TABLET, ORAL, [employer] 1000 ea. BOTTLE Active [id number] 2023 Pharmac y Data Transac tion Service Facilit y AMLODIPINE BESYLATE 2.5MG TAB TAKE TWO TABLETS BY MOUTH EVERY MORNING ORALLY ACTIVE Jagdish BARRETT 2022 [facility] AMOX TR-POTASSIU M CLAVULANATE (AMOXICILLI N/POTASSIUM CLAV), 875-125 MG, TABLET, ORAL, [employer], 20 ea. BOTTLE Active [id number] 2022 Pharmac y Data Transac tion Service Facilit y AMOXICILLIN -CLAVULANAT E POTASS (amoxicilli n/potassium clavulanate ), 875-125 MG, TABLET, ORAL, Private Company [facility],, 20 ea. BOTTLE Active [id number] 2023 Pharmac y Data Transac tion [...] (CIPROFLOXA SHAR HCL), 750 MG, TABLET, ORAL, [employer]ARM, 50 ea. BOTTLE Active [id number] 2023 Pharmac y Data Transac tion [...] BEDTIME ORALLY ACTIVE Jagdish BARRETT N 2022 [facility] MILK OF MAGNESIA TAKE 30ML BY MOUTH EVERY DAY NEEDED ORALLY ACTIVE Jey HANSON 2021 [facility] MULTIVITAMI NS CAP/TAB TAKE ONE TABLET BY MOUTH EVERY DAY ORALLY ACTIVE Jey HANSON 2021 [facility] NALOXONE HCL 4MG/SPRAY SOLN,SPRAY, NASAL SPRAY 1 DOSE IN ONE NOSTRIL DIRECTED PRN NOSTRI L ACTIVE Jagdish BARRETT N 2022 [facility] OXYCODONE HCL (OXYCODONE HCL), 10 MG, TABLET, ORAL, [employer] 100 ea. BOTTLE Active [id number] 2023 Pharmac y Data Transac tion Service Facilit y OXYCODONE HCL (OXYCODONE HCL), 10 MG, TABLET, ORAL, [employer] 100 ea. BOTTLE Active [id number] 2022 Pharmac y Data Transac tion Service Facilit y OXYCODONE HCL 5MG TAB TAKE TWO TABLETS BY MOUTH FOUR TIMES A DAY ORALLY ACTIVE Jagdish BARRETT N 2022 [facility] POTASSIUM CHLORIDE (potassium chloride), 20 MEQ, TAB ER PRT, ORAL, [employer], 100 ea. BOTTLE Cancele d [id number] : 2022 Pharmac y Data Transac tion Service Facilit y POTASSIUM CHLORIDE 20MEQ TAB,SA (DISPERSIBL E) TAKE ONE TABLET BY MOUTH TWICE A DAY ORALLY ACTIVE Jey HANSON M 2021 [facility] WARFARIN SODIUM (warfarin sodium), 5 MG, TABLET, ORAL, [employer] 1000 ea. BOTTLE Cancele d [id number] : 2022 Pharmac y Data Transac tion Service Facilit y WARFARIN SODIUM (WARFARIN SODIUM), 5 MG, TABLET, ORAL, [employer], 1000 ea. BOTTLE Active [id number] 2023 Pharmac y Data Transac tion Service Facilit y WARFARIN SODIUM (WARFARIN SODIUM), 5 MG, TABLET, ORAL, [employer], 1000 ea. BOTTLE Cancele d [id number] : 2022 Pharmac y Data Transac tion Service Facilit y WARFARIN SODIUM (warfarin sodium), 7.5 MG, TABLET, ORAL, [employer], 100 ea. BOTTLE Active [id number] 2023 Pharmac y Data Transac tion Service Facilit y WARFARIN TAB TAKE 5MG BY MOUTH SUN/THUR S AND TAKE 7.5MG BY MOUTH ALL OTHER DAYS ORALLY ACTIVE Jagdish BARRETT 2022 [facility] Allergies, Adverse Reactions, Alerts Combined list of allergies from 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 It does not include entries that were removed or entered in error. Substance Category Reaction Severity Reaction type Status Date Reported Comments Source AMOXICILLIN Propensity to adverse reactions to drug (finding) Eruption active 2 [facility] METOLAZONE Propensity to adverse reactions to drug (finding) Itching active 2 [facility] MORPHINE Propensity to adverse reactions to drug (finding) Delirium active 2 [facility] PIPERACILLIN Propensity to adverse reactions to drug (finding) Eruption active 2 [facility] SULFA DRUGS Propensity to adverse reactions to drug (finding) Eruption active 2 [facility] TAZOBACTAM SODIUM Propensity to adverse reactions to drug (finding) Eruption active 2 [facility] Immunizations Combined list of available immunizations from the 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 Immunization Series Date Given Administered By Site Reaction Lot Number CVX Code Drug Corporate Trainer Status Comments Source INFLUENZA, UNSPECIFIED FORMULATION 2021 88 complet ed [employer] [facility] TD (ADULT), 5 LF TETANUS TOXOID, PRESERVATIVE FREE, ADSORBED 2021 113 complet ed [facility] INFLUENZA, UNSPECIFIED FORMULATION 2020 88 complet ed [facility] COVID-19 (PFIZER), MRNA, LNP-S, PF, 30 MCG/0.3 ML DOSE 3 2020 208 complet ed [facility] COVID-19 (PFIZER), MRNA, LNP-S, PF, 30 MCG/0.3 ML DOSE 2 2020 208 complet ed [facility] COVID-19 (PFIZER), MRNA, LNP-S, PF, 30 MCG/0.3 ML DOSE 1 2020 208 complet ed [facility] PNEUMOCOCCAL CONJUGATE PCV 13 2014 133 complet ed [facility] ZOSTER LIVE 2012 121 complet ed [facility] PNEUMOCOCCAL POLYSACCHARID E PPV23 2010 33 complet ed [facility] TDAP 2010 115 complet ed [facility] Results Combined list of recent chemistry, hematology [...] Feb 05, 2023 03:10 PM Reporting Lab: [facility] [address] Performing Lab: [facility] [address] [facility] CYSTATIN C WITH EGFR CYSTATIN C AND GLOMERULAR FILTRATION RATE BY CYSTATIN C-BASED FORMULA PANEL - SERUM OR PLASMA 53 60 02/13 L Specimen Type: PLASMA No comment entered. Ordering Provider: ANKUSH BOWMAN Report Released Date/Time: Feb 05, 2023 03:10 PM Reporting Lab: [facility] [address] Performing Lab: [facility] [address] [facility] IS [facility] BASIC METABOLI C PANEL+MG CREATININE [MASS/VOLU ME] IN SERUM OR PLASMA 0.7 0.7 - 1.2 02/13 Specimen Type: PLASMA No comment entered. Ordering Provider: ANKUSH BOWMAN Report Released Date/Time: Feb 05, 2023 03:10 PM Reporting Lab: [facility] [address] Performing Lab: [facility] [address] [place] [facility] BASIC METABOLI C PANEL+MG UREA NITROGEN [MASS/VOLU ME] IN SERUM OR PLASMA 15 8 - 26 02/13 Specimen Type: PLASMA No comment entered. Ordering Provider: ANKUSH BOWMAN Report Released Date/Time: Feb 05, 2023 03:10 PM Reporting Lab: [facility] [address] Performing Lab: [facility] [address] [place] [facility] BASIC METABOLI C PANEL+MG GLUCOSE [MASS/VOLU ME] IN SERUM OR PLASMA 140 70 - 100 02/13 H Specimen Type: PLASMA No comment entered. Ordering Provider: ANKUSH BOWMAN Report Released Date/Time: Feb 05, 2023 03:10 PM Reporting Lab: [facility] [address] Performing Lab: [facility] [address] [place] [facility] BASIC METABOLI C PANEL+MG SODIUM [MOLES/VOL UME] IN SERUM OR PLASMA 135 136 - 145 02/13 L Specimen Type: PLASMA No comment entered. Ordering Provider: ANKUSH BOWMAN Report Released Date/Time: Feb 05, 2023 03:10 PM Reporting Lab: [facility] [address] Performing Lab: [facility] [address] [place] [facility] BASIC METABOLI C PANEL+MG POTASSIUM [MOLES/VOL UME] IN SERUM OR PLASMA 4.0 3.5 - 5.1 02/13 Specimen Type: PLASMA No comment entered. Ordering Provider: ANKUSH BOWMAN Report Released Date/Time: Feb 05, 2023 03:10 PM Reporting Lab: [facility] [address] Performing Lab: [facility] [address] [place] [facility] BASIC METABOLI C PANEL+MG CHLORIDE [MOLES/VOL UME] IN SERUM OR PLASMA 99 98 - 107 02/13 Specimen Type: PLASMA No comment entered. Ordering Provider: ANKUSH BOWMAN Report Released Date/Time: Feb 05, 2023 03:10 PM Reporting Lab: [facility] [address] Performing Lab: [facility] [address] [place] [facility] BASIC METABOLI C PANEL+MG CARBON DIOXIDE, TOTAL [MOLES/VOL UME] IN SERUM OR PLASMA 29 22 - 29 02/13 Specimen Type: PLASMA No comment entered. Ordering Provider: ANKUSH BOWMAN Report Released Date/Time: Feb 05, 2023 03:10 PM Reporting Lab: [facility] [address] Performing Lab: [facility] [address] [place] [facility] BASIC METABOLI C PANEL+MG CALCIUM [MASS/VOLU ME] IN SERUM OR PLASMA 9.2 8.4 - 10.2 02/13 Specimen Type: PLASMA No comment entered. Ordering Provider: ANKUSH BOWMAN Report Released Date/Time: Feb 05, 2023 03:10 PM Reporting Lab: [facility] [address] Performing Lab: [facility] [address] [place] [facility] BASIC METABOLI C PANEL+MG MAGNESIUM [MASS/VOLU ME] IN SERUM OR PLASMA 2.0 1.6 - 2.6 02/13 Specimen Type: PLASMA No comment entered. Ordering Provider: ANKUSH BOWMAN Report Released Date/Time: Feb 05, 2023 03:10 PM Reporting Lab: [facility] [address] Performing Lab: [facility] [address] [place] [facility] BASIC METABOLI C PANEL+MG ANION GAP IN SERUM OR PLASMA 7 5 - 15 02/13 Specimen Type: PLASMA No comment entered. Ordering Provider: ANKUSH BOWMAN Report Released Date/Time: Feb 05, 2023 03:10 PM Reporting Lab: [facility] [address] Performing Lab: [facility] [address] [place] [facility] BASIC METABOLI C PANEL+MG GLOMERULAR FILTRATION RATE/1.73 SQ M.PREDICTE D [VOLUME RATE/AREA] IN SERUM, PLASMA OR BLOOD BY CREATININE -BASED FORMULA (CKD-EPI) >90 60 02/13 Specimen Type: PLASMA No comment entered. Ordering Provider: ANKUSH BOWMAN Report Released Date/Time: Feb 05, 2023 03:10 PM Reporting Lab: [facility] [address] Performing Lab: [facility] [address] [place] [facility] URINALYS IS COLOR OF URINE YELLOW 10/08 Specimen Type: URINE No comment entered. Ordering Provider: ANKUSH BOWMAN Report Released Date/Time: Sep 24, 2022 01:55 PM Reporting Lab: [facility] [address] Performing Lab: [facility] [address] [place] [facility] URINALYS IS SPECIFIC GRAVITY OF URINE 1.023 1.003 - 1.035 10/08 Specimen Type: URINE No comment entered. Ordering Provider: ANKUSH BOWMAN Report Released Date/Time: Sep 24, 2022 01:55 PM Reporting Lab: [facility] [address] Performing Lab: [facility] [address] [place] [facility] URINALYS IS BILIRUBIN. TOTAL [PRESENCE] IN URINE BY TEST STRIP NEGATIVE 10/08 Specimen Type: URINE No comment entered. Ordering Provider: ANKUSH BOWMAN Report Released Date/Time: Sep 24, 2022 01:55 PM Reporting Lab: [facility] [address] Performing Lab: [facility] [address] [place] [facility] URINALYS IS KETONES [MASS/VOLU ME] IN URINE BY TEST STRIP NEGATIVE 10/08 Specimen Type: URINE No comment entered. Ordering Provider: ANKUSH BOWMAN Report Released Date/Time: Sep 24, 2022 01:55 PM Reporting Lab: [facility] [address] Performing Lab: [facility] [address] [place] [facility] URINALYS IS GLUCOSE [MASS/VOLU ME] IN URINE BY TEST STRIP NEGATIVE 10/08 Specimen Type: URINE No comment entered. Ordering Provider: ANKUSH BOWMAN Report Released Date/Time: Sep 24, 2022 01:55 PM Reporting Lab: [facility] [address] Performing Lab: [facility] [address] [place] [facility] URINALYS IS PROTEIN [MASS/VOLU ME] IN URINE BY TEST STRIP 30 10/08 Specimen Type: URINE No comment entered. Ordering Provider: ANKUSH BOWMAN Report Released Date/Time: Sep 24, 2022 01:55 PM Reporting Lab: [facility] [address] Performing Lab: [facility] [address] [place] [facility] URINALYS IS PH OF URINE BY TEST STRIP 7.5 5.0 - 8.0 10/08 Specimen Type: URINE No comment entered. Ordering Provider: ANKUSH BOWMAN Report Released Date/Time: Sep 24, 2022 01:55 PM Reporting Lab: [facility] [address] Performing Lab: [facility] [address] [place] [facility] URINALYS IS LEUKOCYTES [#/AREA] IN URINE SEDIMENT BY MICROSCOPY HIGH POWER FIELD >180 0 - 7 10/08 H Specimen Type: URINE No comment entered. Ordering Provider: ANKUSH BOWMAN Report Released Date/Time: Sep 24, 2022 01:55 PM Reporting Lab: [facility] [address] Performing Lab: [facility] [address] [place] [facility] URINALYS IS BACTERIA [PRESENCE] IN URINE SEDIMENT BY LIGHT MICROSCOPY MANY 10/08 Specimen Type: URINE No comment entered. Ordering Provider: ANKUSH BOWMAN Report Released Date/Time: Sep 24, 2022 01:55 PM Reporting Lab: [facility] [address] Performing Lab: [facility] [address] [place] [facility] URINALYS IS ERYTHROCYT ES [#/AREA] IN URINE SEDIMENT BY MICROSCOPY HIGH POWER FIELD 33 0 - 3 10/08 H Specimen Type: URINE No comment entered. Ordering Provider: ANKUSH BOWMAN Report Released Date/Time: Sep 24, 2022 01:55 PM Reporting Lab: [facility] [address] Performing Lab: [facility] [address] [place] [facility] URINALYS IS APPEARANCE OF URINE EX.TURBI D 10/08 Specimen Type: URINE No comment entered. Ordering Provider: ANKUSH BOWMAN Report Released Date/Time: Sep 24, 2022 01:55 PM Reporting Lab: [facility] [address] Performing Lab: [facility] [address] [place] [facility] URINALYS IS EPITHELIAL CELLS.SQUA MOUS [#/AREA] IN URINE SEDIMENT BY MICROSCOPY HIGH POWER FIELD 1 10/08 Specimen Type: URINE No comment entered. Ordering Provider: ANKUSH BOWMAN Report Released Date/Time: Sep 24, 2022 01:55 PM Reporting Lab: [facility] [address] Performing Lab: [facility] [address] [place] [facility] URINALYS IS HEMOGLOBIN [PRESENCE] IN URINE BY TEST STRIP 1+ 10/08 Specimen Type: URINE No comment entered. Ordering Provider: ANKUSH BOWMAN Report Released Date/Time: Sep 24, 2022 01:55 PM Reporting Lab: [facility] [address] Performing Lab: [facility] [address] [place] [facility] URINALYS IS NITRITE [PRESENCE] IN URINE BY TEST STRIP NEGATIVE 10/08 Specimen Type: URINE No comment entered. Ordering Provider: ANKUSH BOWMAN Report Released Date/Time: Sep 24, 2022 01:55 PM Reporting Lab: [facility] [address] Performing Lab: [facility] [address] [place] [facility] URINALYS IS LEUKOCYTE CLUMPS [#/VOLUME] IN URINE BY AUTOMATED COUNT PRESENT 10/08 Specimen Type: URINE No comment entered. Ordering Provider: ANKUSH BOWMAN Report Released Date/Time: Sep 24, 2022 01:55 PM Reporting Lab: [facility] [address] Performing Lab: [facility] [address] [place] [facility] URINALYS IS LEUKOCYTE ESTERASE [PRESENCE] IN URINE BY TEST STRIP 500 10/08 Specimen Type: URINE No comment entered. Ordering Provider: ANKUSH BOWMAN Report Released Date/Time: Sep 24, 2022 01:55 PM Reporting Lab: [facility] [address] Performing Lab: [facility] [address] [place] [facility] ALBUMIN ALBUMIN [MASS/VOLU ME] IN SERUM OR PLASMA 4.2 3.5 - 5.2 10/08 Specimen Type: PLASMA No comment entered. Ordering Provider: ANKUSH BOWMAN Report Released Date/Time: Sep 24, 2022 01:55 PM Reporting Lab: [facility] [address] Performing Lab: [facility] [address] [place] [facility] PRE-ALBU MIN PREALBUMIN [MASS/VOLU ME] IN SERUM OR PLASMA 28.4 14.0 - 45.0 10/08 Specimen Type: SERUM No comment entered. Ordering Provider: ANKUSH BOWMAN Report Released Date/Time: Sep 24, 2022 01:55 PM Reporting Lab: [facility] [address] Performing Lab: [facility] [address] [place] [facility] COMPREHE NSIVE METABOLI C PANEL+MG CREATININE [MASS/VOLU ME] IN SERUM OR PLASMA 0.7 0.7 - 1.2 10/08 Specimen Type: PLASMA No comment entered. Ordering Provider: ANKUSH BOWMAN Report Released Date/Time: Sep 24, 2022 01:55 PM Reporting Lab: [facility] [address] Performing Lab: [facility] [address] [place] [facility] COMPREHE NSIVE METABOLI C PANEL+MG UREA NITROGEN [MASS/VOLU ME] IN SERUM OR PLASMA 16 8 - 26 10/08 Specimen Type: PLASMA No comment entered. Ordering Provider: ANKUSH BOWMAN Report Released Date/Time: Sep 24, 2022 01:55 PM Reporting Lab: [facility] [address] Performing Lab: [facility] [address] [place] [facility] COMPREHE NSIVE METABOLI C PANEL+MG GLUCOSE [MASS/VOLU ME] IN SERUM OR PLASMA 94 70 - 100 10/08 Specimen Type: PLASMA No comment entered. Ordering Provider: ANKUSH BOWMAN Report Released Date/Time: Sep 24, 2022 01:55 PM Reporting Lab: [facility] [address] Performing Lab: [facility] [address] [place] [facility] COMPREHE NSIVE METABOLI C PANEL+MG SODIUM [MOLES/VOL UME] IN SERUM OR PLASMA 138 136 - 145 10/08 Specimen Type: PLASMA No comment entered. Ordering Provider: ANKUSH BOWMAN Report Released Date/Time: Sep 24, 2022 01:55 PM Reporting Lab: [facility] [address] Performing Lab: [facility] [address] [place] [facility] COMPREHE NSIVE METABOLI C PANEL+MG POTASSIUM [MOLES/VOL UME] IN SERUM OR PLASMA 3.9 3.5 - 5.1 10/08 Specimen Type: PLASMA No comment entered. Ordering Provider: ANKUSH BOWMAN Report Released Date/Time: Sep 24, 2022 01:55 PM Reporting Lab: [facility] [address] Performing Lab: [facility] [address] [place] [facility] COMPREHE NSIVE METABOLI C PANEL+MG CHLORIDE [MOLES/VOL UME] IN SERUM OR PLASMA 101 98 - 107 10/08 Specimen Type: PLASMA No comment entered. Ordering Provider: ANKUSH BOWMAN Report Released Date/Time: Sep 24, 2022 01:55 PM Reporting Lab: [facility] [address] Performing Lab: [facility] [address] [place] [facility] COMPREHE NSIVE METABOLI C PANEL+MG CARBON DIOXIDE, TOTAL [MOLES/VOL UME] IN SERUM OR PLASMA - 29 10/08 Specimen Type: PLASMA No comment entered. Ordering Provider: ANKUSH BOWMAN Report Released Date/Time: Sep 24, 2022 01:55 PM Reporting Lab: [facility] [address] Performing Lab: [facility] [address] [place] [facility] COMPREHE NSIVE METABOLI C PANEL+MG CALCIUM [MASS/VOLU ME] IN SERUM OR PLASMA 9.7 8.4 - 10.2 10/08 Specimen Type: PLASMA No comment entered. Ordering Provider: ANKUSH BOWMAN Report Released Date/Time: Sep 24, 2022 01:55 PM Reporting Lab: [facility] [address] Performing Lab: [facility] [address] [place] [facility] COMPREHE NSIVE METABOLI C PANEL+MG PROTEIN [MASS/VOLU ME] IN SERUM OR PLASMA 7.6 6.0 - 8.3 10/08 Specimen Type: PLASMA No comment entered. Ordering Provider: ANKUSH BOWMAN Report Released Date/Time: Sep 24, 2022 01:55 PM Reporting Lab: [facility] [address] Performing Lab: [facility] [address] [place] [facility] COMPREHE NSIVE METABOLI C PANEL+MG ALBUMIN [MASS/VOLU ME] IN SERUM OR PLASMA 4.2 3.5 - 5.2 10/08 Specimen Type: PLASMA No comment entered. Ordering Provider: ANKUSH BOWMAN Report Released Date/Time: Sep 24, 2022 01:55 PM Reporting Lab: [facility] [address] Performing Lab: [facility] [address] [place] [facility] COMPREHE NSIVE METABOLI C PANEL+MG BILIRUBIN. TOTAL [MASS/VOLU ME] IN SERUM OR PLASMA 0.6 0.2 - 1.2 10/08 Specimen Type: PLASMA No comment entered. Ordering Provider: ANKUSH BOWMAN Report Released Date/Time: Sep 24, 2022 01:55 PM Reporting Lab: [facility] [address] Performing Lab: [facility] [address] [place] [facility] COMPREHE NSIVE METABOLI C PANEL+MG MAGNESIUM [MASS/VOLU ME] IN SERUM OR PLASMA 2.1 1.6 - 2.6 10/08 Specimen Type: PLASMA No comment entered. Ordering Provider: ANKUSH BOWMAN Report Released Date/Time: Sep 24, 2022 01:55 PM Reporting Lab: [facility] [address] Performing Lab: [facility] [address] [place] [facility] COMPREHE NSIVE METABOLI C PANEL+MG ANION GAP IN SERUM OR PLASMA 9 5 - 15 10/08 Specimen Type: PLASMA No comment entered. Ordering Provider: ANKUSH BOWMAN Report Released Date/Time: Sep 24, 2022 01:55 PM Reporting Lab: [facility] [address] Performing Lab: [facility] [address] [facility] COMPREHE NSIVE METABOLI C PANEL+MG ALKALINE PHOSPHATAS E [ENZYMATIC ACTIVITY/V OLUME] IN SERUM OR PLASMA 96 40 - 150 10/08 Specimen Type: PLASMA No comment entered. Ordering Provider: ANKUSH BOWMAN Report Released Date/Time: Sep 24, 2022 01:55 PM Reporting Lab: [facility] [address] Performing Lab: [facility] [address] [facility] COMPREHE NSIVE METABOLI C PANEL+MG ALANINE AMINOTRANS FERASE [ENZYMATIC ACTIVITY/V OLUME] IN SERUM OR PLASMA 29 <55 - 55 10/08 Specimen Type: PLASMA No comment entered. Ordering Provider: ANKUSH BOWMAN Report Released Date/Time: Sep 24, 2022 01:55 PM Reporting Lab: [facility] [address] Performing Lab: [facility] [address] [place] [facility] COMPREHE NSIVE METABOLI C PANEL+MG ASPARTATE AMINOTRANS FERASE [ENZYMATIC ACTIVITY/V OLUME] IN SERUM OR PLASMA 22 <34 - 34 10/08 Specimen Type: PLASMA No comment entered. Ordering Provider: ANKUSH BOWMAN Report Released Date/Time: Sep 24, 2022 01:55 PM Reporting Lab: [facility] [address] Performing Lab: [facility] [address] [place] [facility] COMPREHE NSIVE METABOLI C PANEL+MG GLOMERULAR FILTRATION RATE/1.73 SQ M.PREDICTE D [VOLUME RATE/AREA] IN SERUM, PLASMA OR BLOOD BY CREATININE -BASED FORMULA (CKD-EPI) >90 60 10/08 Specimen Type: PLASMA No comment entered. Ordering Provider: ANKUSH BOWMAN Report Released Date/Time: Sep 24, 2022 01:55 PM Reporting Lab: [facility] [address] Performing Lab: [facility] [address] [place] [facility] CBC & DIFF LEUKOCYTES [#/VOLUME] IN BLOOD BY AUTOMATED COUNT 7.32 4.0 - 11.0 10/08 Specimen Type: BLOOD Comment: Automated Differentia l Performed Ordering Provider: ANKUSH BOWMAN Report Released Date/Time: Sep 24, 2022 01:55 PM Reporting Lab: [facility] [address] Performing Lab: [facility] [address] [place] [facility] CBC & DIFF ERYTHROCYT ES [#/VOLUME] IN BLOOD BY AUTOMATED COUNT 4.80 4.6 - 6.2 10/08 Specimen Type: BLOOD Comment: Automated Differentia l Performed Ordering Provider: ANKUSH BOWMAN Report Released Date/Time: Sep 24, 2022 01:55 PM Reporting Lab: [facility] [address] Performing Lab: [facility] [address] [place] [facility] CBC & DIFF HEMOGLOBIN [MASS/VOLU ME] IN BLOOD 14.7 13.5 - 17.9 10/08 Specimen Type: BLOOD Comment: Automated Differentia l Performed Ordering Provider: ANKUSH BOWMAN Report Released Date/Time: Sep 24, 2022 01:55 PM Reporting Lab: [facility] [address] Performing Lab: [facility] [address] [place] [facility] CBC & DIFF HEMATOCRIT [VOLUME FRACTION] OF BLOOD BY AUTOMATED COUNT 44.2 41 - 54 10/08 Specimen Type: BLOOD Comment: Automated Differentia l Performed Ordering Provider: ANKUSH BOWMAN Report Released Date/Time: Sep 24, 2022 01:55 PM Reporting Lab: [facility] [address] Performing Lab: [facility] [address] [place] [facility] CBC & DIFF MCV [ENTITIC VOLUME] BY AUTOMATED COUNT 92.1 80 - 100 10/08 Specimen Type: BLOOD Comment: Automated Differentia l Performed Ordering Provider: ANKUSH BOWMAN Report Released Date/Time: Sep 24, 2022 01:55 PM Reporting Lab: [facility] [address] Performing Lab: [facility] [address] [place] [facility] CBC & DIFF MCH [ENTITIC MASS] BY AUTOMATED COUNT 30.6 27 - 33 10/08 Specimen Type: BLOOD Comment: Automated Differentia l Performed Ordering Provider: ANKUSH BOWMAN Report Released Date/Time: Sep 24, 2022 01:55 PM Reporting Lab: [facility] [address] Performing Lab: [facility] [address] [place] [facility] CBC & DIFF MCHC [MASS/VOLU ME] BY AUTOMATED COUNT 33.3 32.0 - 37.5 10/08 Specimen Type: BLOOD Comment: Automated Differentia l Performed Ordering Provider: ANKUSH BOWMAN Report Released Date/Time: Sep 24, 2022 01:55 PM Reporting Lab: [facility] [address] Performing Lab: [facility] [address] [place] [facility] CBC & DIFF PLATELETS [#/VOLUME] IN BLOOD BY AUTOMATED COUNT 144 150 - 400 10/08 L Specimen Type: BLOOD Comment: Automated Differentia l Performed Ordering Provider: ANKUSH BOWMAN Report Released Date/Time: Sep 24, 2022 01:55 PM Reporting Lab: [facility] [address] Performing Lab: [facility] [address] [place] [facility] CBC & DIFF PLATELET MEAN VOLUME [ENTITIC VOLUME] IN BLOOD BY AUTOMATED COUNT 10.8 7.4 - 10.4 10/08 H Specimen Type: BLOOD Comment: Automated Differentia l Performed Ordering Provider: ANKUSH BOWMAN Report Released Date/Time: Sep 24, 2022 01:55 PM Reporting Lab: [facility] [address] Performing Lab: [facility] [address] [place] [facility] CBC & DIFF NEUTROPHIL S/100 LEUKOCYTES IN BLOOD BY MANUAL COUNT 55.5 10/08 Specimen Type: BLOOD Comment: Automated Differentia l Performed Ordering Provider: ANKUSH BOWMAN Report Released Date/Time: Sep 24, 2022 01:55 PM Reporting Lab: [facility] [address] Performing Lab: [facility] [address] [place] [facility] CBC & DIFF LYMPHOCYTE S/100 LEUKOCYTES IN BLOOD BY MANUAL COUNT 31.4 10/08 Specimen Type: BLOOD Comment: Automated Differentia l Performed Ordering Provider: ANKUSH BOWMAN Report Released Date/Time: Sep 24, 2022 01:55 PM Reporting Lab: [facility] [address] Performing Lab: [facility] [address] [place] [facility] CBC & DIFF MONOCYTES/ 100 LEUKOCYTES IN BLOOD BY AUTOMATED COUNT 10.2 10/08 Specimen Type: BLOOD Comment: Automated Differentia l Performed Ordering Provider: ANKUSH BOWMAN Report Released Date/Time: Sep 24, 2022 01:55 PM Reporting Lab: [facility] [address] Performing Lab: [facility] [address] [place] [facility] CBC & DIFF EOSINOPHIL S/100 LEUKOCYTES IN BLOOD BY AUTOMATED COUNT 2.2 10/08 Specimen Type: BLOOD Comment: Automated Differentia l Performed Ordering Provider: ANKUSH BOWMAN Report Released Date/Time: Sep 24, 2022 01:55 PM Reporting Lab: [facility] [address] Performing Lab: [facility] [address] [place] [facility] CBC & DIFF BASOPHILS/ 100 LEUKOCYTES IN BLOOD BY MANUAL COUNT 0.4 10/08 Specimen Type: BLOOD Comment: Automated Differentia l Performed Ordering Provider: ANKUSH BOWMAN Report Released Date/Time: Sep 24, 2022 01:55 PM Reporting Lab: [facility] [address] Performing Lab: [facility] [address] [place] [facility] CBC & DIFF ERYTHROCYT E DISTRIBUTI ON WIDTH [RATIO] BY AUTOMATED COUNT 15.9 11.5 - 14.5 10/08 H Specimen Type: BLOOD Comment: Automated Differentia l Performed Ordering Provider: ANKUSH BOWMAN Report Released Date/Time: Sep 24, 2022 01:55 PM Reporting Lab: [facility] [address] Performing Lab: [facility] [address] [place] [facility] CBC & DIFF LYMPHOCYTE S [#/VOLUME] IN BLOOD BY AUTOMATED COUNT 2.30 1.0 - 4.0 10/08 Specimen Type: BLOOD Comment: Automated Differentia l Performed Ordering Provider: ANKUSH BOWMAN Report Released Date/Time: Sep 24, 2022 01:55 PM Reporting Lab: [facility] [address] Performing Lab: [facility] [address] [place] [facility] CBC & DIFF MONOCYTES [#/VOLUME] IN BLOOD BY AUTOMATED COUNT 0.75 0.1 - 1.0 10/08 Specimen Type: BLOOD Comment: Automated Differentia l Performed Ordering Provider: ANKUSH BOWMAN Report Released Date/Time: Sep 24, 2022 01:55 PM Reporting Lab: [facility] [address] Performing Lab: [facility] [address] [place] [facility] CBC & DIFF NEUTROPHIL S [#/VOLUME] IN BLOOD BY AUTOMATED COUNT 4.06 2.0 - 7.7 10/08 Specimen Type: BLOOD Comment: Automated Differentia l Performed Ordering Provider: ANKUSH BOWMAN Report Released Date/Time: Sep 24, 2022 01:55 PM Reporting Lab: [facility] [address] Performing Lab: [facility] [address] [place] [facility] CBC & DIFF EOSINOPHIL S [#/VOLUME] IN BLOOD BY AUTOMATED COUNT 0.16 0 - 0.5 10/08 Specimen Type: BLOOD Comment: Automated Differentia l Performed Ordering Provider: ANKUSH BOWMAN Report Released Date/Time: Sep 24, 2022 01:55 PM Reporting Lab: [facility] [address] Performing Lab: [facility] [address] [place] [facility] CBC & DIFF BASOPHILS [#/VOLUME] IN BLOOD BY AUTOMATED COUNT 0.03 0 - 0.2 10/08 Specimen Type: BLOOD Comment: Automated Differentia l Performed Ordering Provider: ANKUSH BOWMAN Report Released Date/Time: Sep 24, 2022 01:55 PM Reporting Lab: [facility] [address] Performing Lab: [facility] [address] [place] [facility] CBC & DIFF IG(META,MY MALACHI,PRO) 0.3 10/08 Specimen Type: BLOOD Comment: Automated Differentia l Performed Ordering Provider: ANKUSH BOWMAN Report Released Date/Time: Sep 24, 2022 01:55 PM Reporting Lab: [facility] [address] Performing Lab: [facility] [address] [place] [facility] CBC & DIFF IMMATURE GRANULOCYT ES [PRESENCE] IN BLOOD BY AUTOMATED COUNT 0.02 0 - 0.1 10/08 Specimen Type: BLOOD Comment: Automated Differentia l Performed Ordering Provider: ANKUSH BOWMAN Report Released Date/Time: Sep 24, 2022 01:55 PM Reporting Lab: [facility] [address] Performing Lab: [facility] [address] [place] [facility] CYSTATIN C WITH EGFR CYSTATIN C [MASS/VOLU ME] IN SERUM OR PLASMA 1.38 0.51 - 1.05 10/08 H Specimen Type: PLASMA No comment entered. Ordering Provider: ANKUSH BOWMAN Report Released Date/Time: Sep 24, 2022 01:55 PM Reporting Lab: [facility] [address] Performing Lab: [facility] [address] [place] [facility] CYSTATIN C WITH EGFR CYSTATIN C AND GLOMERULAR FILTRATION RATE BY CYSTATIN-B ASED FORMULA PANEL - SERUM OR PLASMA 48 60 10/08 L Specimen Type: PLASMA No comment entered. Ordering Provider: ANKUSH BOWMAN Report Released Date/Time: Sep 24, 2022 01:55 PM Reporting Lab: [facility] [address] Performing Lab: [facility] [address] [place] [facility] VIT D 25-OH,TO ZAMZAM 25-HYDROXY VITAMIN D3 [MASS/VOLU ME] IN SERUM OR PLASMA 54 12 - 50 10/08 H Specimen Type: SERUM No comment entered. Ordering Provider: ANKUSH BOWMAN Report Released Date/Time: Sep 24, 2022 01:55 PM Reporting Lab: [facility] [address] Performing Lab: [facility] [address] [place] [facility] COMPREHE NSIVE METABOLI C PANEL+MG CREATININE [MASS/VOLU ME] IN SERUM OR PLASMA 0.7 0.7 - 1.2 05/28 Specimen Type: PLASMA No comment entered. Ordering Provider: GERMANIA HANSON Report Released Date/Time: May 28, 2022 03:06 PM Reporting Lab: [facility] [address] Performing Lab: [facility] [address] [facility] COMPREHE NSIVE METABOLI C PANEL+MG UREA NITROGEN [MASS/VOLU ME] IN SERUM OR PLASMA 13 8 - 26 05/28 Specimen Type: PLASMA No comment entered. Ordering Provider: GERMANIA HANSON Report Released Date/Time: May 28, 2022 03:06 PM Reporting Lab: [facility] [address] Performing Lab: [facility] [address] [facility] COMPREHE NSIVE METABOLI C PANEL+MG GLUCOSE [MASS/VOLU ME] IN SERUM OR PLASMA 98 74 - 100 05/28 Specimen Type: PLASMA No comment entered. Ordering Provider: GERMANIA HANSON Report Released Date/Time: May 28, 2022 03:06 PM Reporting Lab: [facility] [address] Performing Lab: [facility] [address] [facility] COMPREHE NSIVE METABOLI C PANEL+MG SODIUM [MOLES/VOL UME] IN SERUM OR PLASMA 138 136 - 145 05/28 Specimen Type: PLASMA No comment entered. Ordering Provider: GERMANIA HANSON Report Released Date/Time: May 28, 2022 03:06 PM Reporting Lab: [facility] [address] Performing Lab: [facility] [address] [facility] COMPREHE NSIVE METABOLI C PANEL+MG POTASSIUM [MOLES/VOL UME] IN SERUM OR PLASMA 4.4 3.5 - 5.1 05/28 Specimen Type: PLASMA No comment entered. Ordering Provider: GERMANIA HANSON Report Released Date/Time: May 28, 2022 03:06 PM Reporting Lab: [facility] [address] Performing Lab: [facility] [address] [facility] COMPREHE NSIVE METABOLI C PANEL+MG CHLORIDE [MOLES/VOL UME] IN SERUM OR PLASMA 102 98 - 107 05/28 Specimen Type: PLASMA No comment entered. Ordering Provider: GERMANIA HANSON Report Released Date/Time: May 28, 2022 03:06 PM Reporting Lab: [facility] [address] Performing Lab: [facility] [address] [facility] COMPREHE NSIVE METABOLI C PANEL+MG CARBON DIOXIDE, TOTAL [MOLES/VOL UME] IN SERUM OR PLASMA 28 22 - 29 05/28 Specimen Type: PLASMA No comment entered. Ordering Provider: GERMANIA HANSON Report Released Date/Time: May 28, 2022 03:06 PM Reporting Lab: [facility] [address] Performing Lab: [facility] [address] [facility] COMPREHE NSIVE METABOLI C PANEL+MG CALCIUM [MASS/VOLU ME] IN SERUM OR PLASMA 9.4 8.4 - 10.2 07/18 /2022 Specimen Type: PLASMA No comment entered. Ordering Provider: GERMANIA HANSON Report Released Date/Time: May 28, 2022 03:06 PM Reporting Lab: [facility] [address] Performing Lab: [facility] [address] [facility] COMPREHE NSIVE METABOLI C PANEL+MG PROTEIN [MASS/VOLU ME] IN SERUM OR PLASMA 7.6 6.0 - 8.3 05/28 Specimen Type: PLASMA No comment entered. Ordering Provider: GERMANIA HANSON Report Released Date/Time: May 28, 2022 03:06 PM Reporting Lab: [facility] [address] Performing Lab: [facility] [address] [facility] COMPREHE NSIVE METABOLI C PANEL+MG ALBUMIN [MASS/VOLU ME] IN SERUM OR PLASMA 4.0 3.5 - 5.2 05/28 Specimen Type: PLASMA No comment entered. Ordering Provider: GERMANIA HANSON Report Released Date/Time: May 28, 2022 03:06 PM Reporting Lab: [facility] [address] Performing Lab: [facility] [address] [facility] COMPREHE NSIVE METABOLI C PANEL+MG BILIRUBIN. TOTAL [MASS/VOLU ME] IN SERUM OR PLASMA 0.5 0.2 - 1.2 05/28 Specimen Type: PLASMA No comment entered. Ordering Provider: GERMANIA HANSON Report Released Date/Time: May 28, 2022 03:06 PM Reporting Lab: [facility] [address] Performing Lab: [facility] [address] [facility] COMPREHE NSIVE METABOLI C PANEL+MG MAGNESIUM [MASS/VOLU ME] IN SERUM OR PLASMA 2.1 1.6 - 2.6 05/28 Specimen Type: PLASMA No comment entered. Ordering Provider: GERMANIA HANSON Report Released Date/Time: May 28, 2022 03:06 PM Reporting Lab: [facility] [address] Performing Lab: [facility] [address] [facility] COMPREHE NSIVE METABOLI C PANEL+MG ANION GAP IN SERUM OR PLASMA 8 5 - 15 05/28 Specimen Type: PLASMA No comment entered. Ordering Provider: GERMANIA HANSON Report Released Date/Time: May 28, 2022 03:06 PM Reporting Lab: [facility] [address] Performing Lab: [facility] [address] [facility] COMPREHE NSIVE METABOLI C PANEL+MG ALKALINE PHOSPHATAS E [ENZYMATIC ACTIVITY/V OLUME] IN SERUM OR PLASMA 108 40 - 150 05/28 Specimen Type: PLASMA No comment entered. Ordering Provider: GERMANIA HANSON Report Released Date/Time: May 28, 2022 03:06 PM Reporting Lab: [facility] [address] Performing Lab: [facility] [address] [facility] COMPREHE NSIVE METABOLI C PANEL+MG ALANINE AMINOTRANS FERASE [ENZYMATIC ACTIVITY/V OLUME] IN SERUM OR PLASMA 27 <55 - 55 05/28 Specimen Type: PLASMA No comment entered. Ordering Provider: GERMANIA HANSON Report Released Date/Time: May 28, 2022 03:06 PM Reporting Lab: [facility] [address] Performing Lab: [facility] [address] [facility] COMPREHE NSIVE METABOLI C PANEL+MG ASPARTATE AMINOTRANS FERASE [ENZYMATIC ACTIVITY/V OLUME] IN SERUM OR PLASMA 21 <34 - 34 05/28 Specimen Type: PLASMA No comment entered. Ordering Provider: GERMANIA HANSON Report Released Date/Time: May 28, 2022 03:06 PM Reporting Lab: [facility] [address] Performing Lab: [facility] [address] [facility] COMPREHE NSIVE METABOLI C PANEL+MG GLOMERULAR FILTRATION RATE/1.73 SQ M.PREDICTE D [VOLUME RATE/AREA] IN SERUM, PLASMA OR BLOOD BY CREATININE -BASED FORMULA (CKD-EPI) >90 60 05/28 Specimen Type: PLASMA No comment entered. Ordering Provider: GERMANIA HANSON Report Released Date/Time: May 28, 2022 03:06 PM Reporting Lab: [facility] [address] Performing Lab: [facility] [address] [facility] Vital Signs Combined list of inpatient and outpatient Vital Signs from Department of Defense and Veterans Affairs, ranging from 12 months to all on record, depending upon the facility. Vital Sign Value Date Comments Source SYSTOLIC BLOOD PRESSURE 103 02/13/2023 10:58:23 [facility] DIASTOLIC BLOOD PRESSURE 66 02/13/2023 10:58:23 [facility] PULSE OXIMETRY 98% 02/13/2023 10:58:23 [place] [facility] PAIN 4 02/13/2023 10:58:23 [facility] TEMPERATURE 96.2 02/13/2023 10:58:23 [facility] PULSE 86 02/13/2023 10:58:23 [facility] RESPIRATION 16 02/13/2023 10:58:23 [facility] WEIGHT 225 02/05/2023 15:39:35 [facility] BMI 33kg/m2 02/05/2023 15:39:35 [facility] Encounters Combined list of: 1) Encounters from Department of Veterans Affairs facilities going back up to thelast 18 months. 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 Location Location Details Encounter Type Encounter Number Reason For Visit Attending Provider ADM Date DC Date Status Disposition Source [facility] OFFICE O/P [place] 60-74 MIN [id number] Diagnos is: ICD-10- CM C72.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
JANNA HANSON 05/28 [facility] [place] [facility] Outpatient Encounter [id number] 05/30 [place] [facility] [place] [facility] Outpatient Encounter [id number] 06/01 [place] [facility] [place] [facility] Outpatient Encounter [id number] 06/04 [place] [facility] [place] [facility] Outpatient Encounter [id number] 06/05 [facility] [place] [facility] SELF CARE MNGMENT TRAINING [id number] Diagnos is: ICD-10- CM Z73.6 Limitat ion of activit ies due to disabil ity<br/ > NADEEN MITCHELL 06/07 [facility] [place] [facility] Outpatient Encounter [id number] 06/07 [facility] OT EVAL HIGH COMPLEX 60 MIN [id number] Diagnos is: ICD-10- CM R54 Age-rel ated physica l debilit y
SAVANNA MCKINLEY 06/07 [facility] [place] [facility] Outpatient Encounter [id number] 06/11 [facility] [place] [facility] Outpatient Encounter [id number] 06/11 [facility] [place] [facility] Outpatient Encounter [id number] 06/12 [facility] [place] [facility] Outpatient Encounter [id number] 06/15 [facility] [place] [facility] Outpatient Encounter [id number] 06/21 [facility] [place] [facility] Outpatient Encounter [id number] 06/25 [facility] [place] [facility] OFFICE O/P NEW LOW 30-44 MIN [id number] Diagnos is: ICD-10- CM G82.20 Paraple mary kay, unspeci fied
ME LOGAN BOWMAN 06/27 [facility] [place] [facility] Outpatient Encounter [id number] 06/27 [facility] SELF CARE MNGMENT TRAINING [id number] Diagnos is: ICD-10- CM Z73.6 Limitat ion of activit ies due to disabil ity<br/ > AVE HALEY M 07/11 [facility] Outpatient Encounter [id number] 07/18 [facility] SELF CARE MNGMENT TRAINING [id number] Diagnos is: ICD-10- CM Z73.6 Limitat ion of activit ies due to disabil ity<br/ > RACIEL CHOWDHURY 07/23 [facility] SELF CARE MNGMENT TRAINING [id number] Diagnos is: ICD-10- CM Z73.6 Limitat ion of activit ies due to disabil ity<br/ > AVE HALEY M 07/25 [facility] OT EVAL MOD COMPLEX 45 MIN [id number] Diagnos is: ICD-10- CM Z73.6 Limitat ion of activit ies due to disabil ity<br/ > AVE HALEY M 07/25 [facility] Outpatient Encounter [id number] Diagnos is: ICD-10- CM R26.9 Unspeci fied abnorma lities of gait and mobilit y
KARI JORDAN M 07/31 [facility] OFFICE O/P EST MOD 30-39 MIN [id number] Diagnos is: ICD-10- CM G82.20 Paraple mary kay, unspeci fied
ME LOGAN BOWMAN 08/01 [facility] Outpatient Encounter [id number] 08/17 [facility] Outpatient Encounter [id number] 09/20 [facility] OFFICE O/P EST MINIMAL PROB [id number] Diagnos is: ICD-10- CM G82.20 Paraple mary kay, unspeci fied
Jey PATTON V 10/08 [facility] ASSISTIVE TECHNOLOGY ASSESS [id number] Diagnos is: ICD-10- CM Z73.6 Limitat ion of activit ies due to disabil ity<br/ > BOUSLOG,RY AN P 10/08 [facility] Outpatient Encounter [id number] 10/09 [facility] Outpatient Encounter [id number] 10/11 [facility] HC PRO PHONE CALL 5-10 MIN [id number] Diagnos is: ICD-10- CM Z73.6 Limitat ion of activit ies due to disabil ity<br/ > AVE HALEY 12/13 [facility] Outpatient Encounter [id number] 01/08 [facility] HC PRO PHONE CALL 21-30 MIN [id number] Diagnos is: ICD-10- CM G82.20 Paraple mary kay, unspeci fied
Hever CASTRO 01/08 [facility] Outpatient Encounter [id number] 01/09 [facility] DIABETIC MANAGEMENT PROGRAM, [id number] Diagnos is: ICD-10- CM G82.20 Paraple mary kay, unspeci fied
TIGIST BASSETT A 01/30 [facility] Outpatient Encounter [id number] 02/05 [facility] MTMS BY PHARM ADDL 15 MIN [id number] Diagnos is: ICD-10- CM G82.20 Paraple mary kay, unspeci fied
MANPREET BARRETTEY N 02/05 [facility] OT EVAL LOW COMPLEX 30 MIN [id number] Diagnos is: ICD-10- CM Z73.6 Limitat ion of activit ies due to disabil ity<br/ > Bryn PARDO 02/05 [facility] OFF/OP EST MAY X REQ PHY/QHP [id number] Diagnos is: ICD-10- CM G82.20 Paraple mary kay, unspeci fied
NOAHJOSUÉ J 02/05 [facility] PSYCH DIAGNOSTIC EVALUATION [phone] Diagnos is: ICD-10- CM F32.A Depress ion, unspeci fied
BINU GAMEZ 02/05 [facility] OFFICE O/P EST MOD 30-39 MIN [phone] Diagnos is: ICD-10- CM G82.20 Paraple mary kay, unspeci fied
ME LOGAN BOWMAN K 02/05 [facility] IS [facility] PSYCH DIAGNOSTIC EVALUATION [id number] [id number] Diagnos is: ICD-10- CM G82.20 Paraple mary kay, unspeci fied
JENNIFFERAN DESIRE J 02/05 [facility] MEDICAL NUTRITION INDIV IN [phone] Diagnos is: ICD-10- CM Z71.3 Dietary treatment counselor ing and surveil payal<b r/> Katia ARCHER 02/05 [facility] [place] [id number] [phone] Diagnos is: ICD-10- CM Z43.3 En[place] er for attenti on to colosto my
VIOL[place] YOON 02/08 [facility] OFFICE O/P EST HI 40-54 MIN [id number] [phone] Diagnos is: ICD-10- CM G82.20 Paraple mary kay, unspeci fied
ME LOGAN BOWMAN 02/13 [facility] WHEELCHAIR MNGMENT TRAINING [id number] [phone] Diagnos is: ICD-10- CM Z73.6 Limitat ion of activit ies due to disabil ity<br/ > BOUSLOG,RY AN P 02/13 [facility] Outpatient Encounter [id number] [phone] 02/19 [facility] HC PRO PHONE CALL 11-20 MIN [id number] [id number] Diagnos is: ICD-10- CM Z73.6 Limitat ion of activit ies due to disabil ity<br/ > BOUSLOG,RY AN P 04/23 [facility] Outpatient Encounter [id number] [phone] 04/24 [facility] Outpatient Encounter [id number] 05/24 [facility] OFF/OP EST MARCH X REQ PHY/QHP [id number] [phone] Diagnos is: ICD-10- CM G82.20 Paraple mary kay, unspeci fied
VIOLA YOON NDJagdish 05/28 [facility] WHEELCHAIR MNGMENT TRAINING [id number] Diagnos is: ICD-10- CM Z73.6 Limitat ion of activit ies due to disabil ity<br/ > BOUSLOG,RY AN P 06/10 [facility] Outpatient Encounter [id number] 10/28 [facility] Outpatient Encounter [id number] 11/20 [facility] Social History Combined list of available smoking, tobacco, and other social history from 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 Social History Type Response Date Comment Sour e Tobacco smoking status [facility] NEVER USED 05/28/20 22 [facility] This section is an empty social history section. [facility] Advance Directives List of completed, amended, or rescinded Advance Directives on record at Department of 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 An actual copy of the Directive is not included. Date Advance Directive Provider Source 02/05/2023 ADVANCE DIRECTIVE DISCUSSION [facility]
== END 2023-12-02 12:40 | disposition home or self-care (01) ==
LOC: WOUND 12:40
PROVIDERS: PCP Family Medicine; Visit Provider Nurse Practitioner Family
DX: M86.18 Other acute osteomyelitis, other site (principal); E11.622 Type 2 diabetes mellitus with other skin ulcer; L89.324 Pressure ulcer of left buttock, stage 4; G82.50 Quadriplegia, unspecified
CPT/HCPCS: 11043; 97605

== ENCOUNTER 2023-12-09 12:40 | Outpatient (CLI) | payer MEDICARE, OTHER, SELFPAY ==
--- OUTSIDE RECORDS SUMMARY | 2023-12-09 12:45 | XMS_ITS | Continuity of Care Document ---
Author Name [facility] Organization [facility] Care Team Providers Care System Manager Name Role Phone [facility] Unavailable Unavailable Problems Combined list of problems from 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 It does not include entries that were removed or entered in error. Problem Status Onset Date Problem Type Date of Resolution Comments Source Abnormal liver function Active Condition [facility] Anemia (SCT 787844679) Active Condition [facility] Anxiety ([facility] 72683638) Active Condition [facility] Autonomic dysreflexia Active Condition [facility] Chronic Pain Syndrome (SCT 882645291) Active Condition [facility] Colostomy present Active Condition [facility] Constipation (SCT 09581858) Active Condition [facility] Continuous opioid dependence Active Condition [facility] COPD - Chronic Obstructive Pulmonary Disease (SCT 02072490) Active Condition [facility] Dementia Active Condition [facility] Depression (SCT 03396911) Active Condition [facility] Diabetes Mellitus Type 2 (SCT 15585288) Active Condition [facility] Ependymoma of spinal cord Active Condition [facility] Hearing Loss (SCT 53569055) Active Condition [facility] History of Deep Vein Thrombosis (SCT 625814945) Active Condition [facility] History of pressure injury Active Condition [facility] HTN - Hypertension (SCT 18922032) Active Condition [facility] Hyperlipidemia (SCT 09076235) Active Condition [facility] Hyponatremia Active Condition [facility] Long-term current use of anticoagulant Active Condition [facility] Neurogenic Bladder (SCT 252170866) Active Condition [facility] Neurogenic bowel Active Condition [facility] Osteoporosis ([facility] 90314429) Active Condition [facility] Paraplegia Active Condition [facility] Spasticity Active Condition [facility] Suprapubic urinary catheter in situ Active Condition [facility] Supraventricular tachycardia Active Condition [facility] Tinnitus ([facility] 16690283) Active Condition [facility] Vitamin D Deficiency ([facility] 4826688) Active Condition [facility] Diagnosis: ICD-10-CM Z73.6 Limitation of activities due to disability Active Diagnosis [facility] Diagnosis: ICD-10-CM G82.20 Paraplegia, unspecified Active Diagnosis [facility] Diagnosis: ICD-10-CM Z43.3 Encounter for attention to colostomy Active Diagnosis [facility] Diagnosis: ICD-10-CM Z71.3 Dietary counseling and surveillance Active Diagnosis [facility] Diagnosis: ICD-10-CM F32.A Depression, unspecified Active Diagnosis [facility] Diagnosis: ICD-10-CM R26.9 Unspecified abnormalities of gait and mobility Active Diagnosis [facility] Diagnosis: ICD-10-CM R54 Age-related physical debility Active Diagnosis [facility] Diagnosis: ICD-10-CM C72.0 Malignant neoplasm of [...] DAY NEEDED ORALLY ACTIVE Jagdish BARRETT 2022 [facility] AMLODIPINE BESYLATE (AMLODIPINE BESYLATE), 5 MG, TABLET, ORAL, [employer] 1000 ea. BOTTLE Active [id number] 2023 Pharmac y Data Transac tion Service Facilit y AMLODIPINE BESYLATE 2.5MG TAB TAKE TWO TABLETS BY MOUTH EVERY MORNING ORALLY ACTIVE Jagdish BARRETT 2022 [facility] AMOX TR-POTASSIU M CLAVULANATE (AMOXICILLI N/POTASSIUM CLAV), 875-125 MG, TABLET, ORAL, [employer], 20 ea. BOTTLE Active [id number] 2022 Pharmac y Data Transac tion Service Facilit y AMOXICILLIN -CLAVULANAT E POTASS (amoxicilli n/potassium clavulanate ), 875-125 MG, TABLET, ORAL, [employer] [facility],, 20 ea. BOTTLE Active [id number] 2023 Pharmac y Data Transac tion [...] MOUTH TWICE A DAY ORALLY ACTIVE Jey AHNSON 2021 [facility] CEPHALEXIN 250MG CAP TAKE 1 CAPSULE BY MOUTH EVERY DAY ORALLY ACTIVE Jey HANSON 2021 [facility] CHOLECALCIF GILSON 25MCG (1,000UNIT) TAB TAKE ONE TABLET BY MOUTH EVERY DAY ORALLY ACTIVE Jey HANSON 2021 [facility] CIPROFLOXAC IN HCL (CIPROFLOXA SHAR HCL), 750 MG, TABLET, ORAL, [employer], 50 ea. BOTTLE Active [id number] 2023 Pharmac y Data Transac tion [...] BEDTIME ORALLY ACTIVE Jagdish BARRETT N 2022 [facility] MILK OF MAGNESIA TAKE 30ML BY MOUTH EVERY DAY NEEDED ORALLY ACTIVE Jey HANSON 2021 [facility] MULTIVITAMI NS CAP/TAB TAKE ONE TABLET BY MOUTH EVERY DAY ORALLY ACTIVE Jey HANSON 2021 [facility] NALOXONE HCL 4MG/SPRAY SOLN,SPRAY, NASAL SPRAY 1 DOSE IN ONE NOSTRIL DIRECTED PRN NOSTRI L ACTIVE Jagdish BARRETT N 2022 [facility] OXYCODONE HCL (OXYCODONE HCL), 10 MG, TABLET, ORAL, [employer] 100 ea. BOTTLE Active [id number] 2023 Pharmac y Data Transac tion Service Facilit y OXYCODONE HCL (OXYCODONE HCL), 10 MG, TABLET, ORAL, [employer] 100 ea. BOTTLE Active [id number] 2022 Pharmac y Data Transac tion Service Facilit y OXYCODONE HCL 5MG TAB TAKE TWO TABLETS BY MOUTH FOUR TIMES A DAY ORALLY ACTIVE Jagdish BARRETT N 2022 [facility] POTASSIUM CHLORIDE (potassium chloride), 20 MEQ, TAB ER PRT, ORAL, [employer], 100 ea. BOTTLE Cancele d [id number] : 2022 Pharmac y Data Transac tion Service Facilit y POTASSIUM CHLORIDE 20MEQ TAB,SA (DISPERSIBL E) TAKE ONE TABLET BY MOUTH TWICE A DAY ORALLY ACTIVE Jey HANSON M 2021 [facility] WARFARIN SODIUM (warfarin sodium), 5 MG, TABLET, ORAL, [employer] 1000 ea. BOTTLE Cancele d [id number] : 2022 Pharmac y Data Transac tion Service Facilit y WARFARIN SODIUM (WARFARIN SODIUM), 5 MG, TABLET, ORAL, [employer], 1000 ea. BOTTLE Active [id number] 2023 Pharmac y Data Transac tion Service Facilit y WARFARIN SODIUM (WARFARIN SODIUM), 5 MG, TABLET, ORAL, [employer], 1000 ea. BOTTLE Cancele d [id number] : 2022 Pharmac y Data Transac tion Service Facilit y WARFARIN SODIUM (warfarin sodium), 7.5 MG, TABLET, ORAL, [employer], 100 ea. BOTTLE Active [id number] 2023 Pharmac y Data Transac tion Service Facilit y WARFARIN TAB TAKE 5MG BY MOUTH SUN/THUR S AND TAKE 7.5MG BY MOUTH ALL OTHER DAYS ORALLY ACTIVE Jagdish BARRETT 2022 [facility] Allergies, Adverse Reactions, Alerts Combined list of allergies from 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 It does not include entries that were removed or entered in error. Substance Category Reaction Severity Reaction type Status Date Reported Comments Source AMOXICILLIN Propensity to adverse reactions to drug (finding) Eruption active 2 [facility] METOLAZONE Propensity to adverse reactions to drug (finding) Itching active 2 [facility] MORPHINE Propensity to adverse reactions to drug (finding) Delirium active 2 [facility] PIPERACILLIN Propensity to adverse reactions to drug (finding) Eruption active 2 [facility] SULFA DRUGS Propensity to adverse reactions to drug (finding) Eruption active 2 [facility] TAZOBACTAM SODIUM Propensity to adverse reactions to drug (finding) Eruption active 2 [facility] Immunizations Combined list of available immunizations from the 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 Immunization Series Date Given Administered By Site Reaction Lot Number CVX Code Drug Optical Sales Associate Status Comments Source INFLUENZA, UNSPECIFIED FORMULATION 2021 88 complet ed [place] recall [facility] TD (ADULT), 5 LF TETANUS TOXOID, PRESERVATIVE FREE, ADSORBED 2021 113 complet ed [facility] INFLUENZA, UNSPECIFIED FORMULATION 2020 88 complet ed [facility] COVID-19 (PFIZER), MRNA, LNP-S, PF, 30 MCG/0.3 ML DOSE 3 2020 208 complet ed [facility] COVID-19 (PFIZER), MRNA, LNP-S, PF, 30 MCG/0.3 ML DOSE 2 2020 208 complet ed [facility] COVID-19 (PFIZER), MRNA, LNP-S, PF, 30 MCG/0.3 ML DOSE 1 2020 208 complet ed [facility] PNEUMOCOCCAL CONJUGATE PCV 13 2014 133 complet ed [facility] ZOSTER LIVE 2012 121 complet ed [facility] PNEUMOCOCCAL POLYSACCHARID E PPV23 2010 33 complet ed [facility] TDAP 2010 115 complet ed [facility] Results Combined list of recent chemistry, [...] 2023 03:10 PM Reporting Lab: [facility] [address] Performing Lab: [facility] [address] [facility] CYSTATIN C WITH EGFR CYSTATIN C AND GLOMERULAR FILTRATION RATE BY CYSTATIN C-BASED FORMULA PANEL - SERUM OR PLASMA 53 60 02/13 L Specimen Type: PLASMA No comment entered. Ordering Provider: ANKUSH BOWMAN Report Released Date/Time: Feb 05, 2023 03:10 PM Reporting Lab: [facility] [address] Performing Lab: [facility] [address] [facility] BASIC METABOLI C PANEL+MG CREATININE [MASS/VOLU ME] IN SERUM OR PLASMA 0.7 0.7 - 1.2 02/13 Specimen Type: PLASMA No comment entered. Ordering Provider: ANKUSH BOWMAN Report Released Date/Time: Feb 05, 2023 03:10 PM Reporting Lab: [facility] [address] Performing Lab: [facility] [address] [place] [facility] BASIC METABOLI C PANEL+MG UREA NITROGEN [MASS/VOLU ME] IN SERUM OR PLASMA 15 8 - 26 02/13 Specimen Type: PLASMA No comment entered. Ordering Provider: ANKUSH BOWMAN Report Released Date/Time: Feb 05, 2023 03:10 PM Reporting Lab: [facility] [address] Performing Lab: [facility] [address] [place] [facility] BASIC METABOLI C PANEL+MG GLUCOSE [MASS/VOLU ME] IN SERUM OR PLASMA 140 70 - 100 02/13 H Specimen Type: PLASMA No comment entered. Ordering Provider: ANKUSH BOWMAN Report Released Date/Time: Feb 05, 2023 03:10 PM Reporting Lab: [facility] [address] Performing Lab: [facility] [address] [place] [facility] BASIC METABOLI C PANEL+MG SODIUM [MOLES/VOL UME] IN SERUM OR PLASMA 135 136 - 145 02/13 L Specimen Type: PLASMA No comment entered. Ordering Provider: ANKUSH BOWMAN Report Released Date/Time: Feb 05, 2023 03:10 PM Reporting Lab: [facility] [address] Performing Lab: [facility] [address] [place] [facility] BASIC METABOLI C PANEL+MG POTASSIUM [MOLES/VOL UME] IN SERUM OR PLASMA 4.0 3.5 - 5.1 02/13 Specimen Type: PLASMA No comment entered. Ordering Provider: ANKUSH BOWMAN Report Released Date/Time: Feb 05, 2023 03:10 PM Reporting Lab: [facility] [address] Performing Lab: [facility] [address] [place] [facility] BASIC METABOLI C PANEL+MG CHLORIDE [MOLES/VOL UME] IN SERUM OR PLASMA 99 98 - 107 02/13 Specimen Type: PLASMA No comment entered. Ordering Provider: ANKUSH BOWMAN Report Released Date/Time: Feb 05, 2023 03:10 PM Reporting Lab: [facility] [address] Performing Lab: [facility] [address] [place] [facility] BASIC METABOLI C PANEL+MG CARBON DIOXIDE, TOTAL [MOLES/VOL UME] IN SERUM OR PLASMA 29 22 - 29 02/13 Specimen Type: PLASMA No comment entered. Ordering Provider: ANKUSH BOWMAN Report Released Date/Time: Feb 05, 2023 03:10 PM Reporting Lab: [facility] [address] Performing Lab: [facility] [address] [place] [facility] BASIC METABOLI C PANEL+MG CALCIUM [MASS/VOLU ME] IN SERUM OR PLASMA 9.2 8.4 - 10.2 02/13 Specimen Type: PLASMA No comment entered. Ordering Provider: ANKUSH BOWMAN Report Released Date/Time: Feb 05, 2023 03:10 PM Reporting Lab: [facility] [address] Performing Lab: [facility] [address] [place] [facility] BASIC METABOLI C PANEL+MG MAGNESIUM [MASS/VOLU ME] IN SERUM OR PLASMA 2.0 1.6 - 2.6 02/13 Specimen Type: PLASMA No comment entered. Ordering Provider: ANKUSH BOWMAN Report Released Date/Time: Feb 05, 2023 03:10 PM Reporting Lab: [facility] [address] Performing Lab: [facility] [address] [place] [facility] BASIC METABOLI C PANEL+MG ANION GAP IN SERUM OR PLASMA 7 5 - 15 02/13 Specimen Type: PLASMA No comment entered. Ordering Provider: ANKUSH BOWMAN Report Released Date/Time: Feb 05, 2023 03:10 PM Reporting Lab: [facility] [address] Performing Lab: [facility] [address] [place] [facility] BASIC METABOLI C PANEL+MG GLOMERULAR FILTRATION RATE/1.73 SQ M.PREDICTE D [VOLUME RATE/AREA] IN SERUM, PLASMA OR BLOOD BY CREATININE -BASED FORMULA (CKD-EPI) >90 60 02/13 Specimen Type: PLASMA No comment entered. Ordering Provider: ANKUSH BOWMAN Report Released Date/Time: Feb 05, 2023 03:10 PM Reporting Lab: [facility] [address] Performing Lab: [facility] [address] [place] [facility] URINALYS IS COLOR OF URINE YELLOW 10/08 Specimen Type: URINE No comment entered. Ordering Provider: ANKUSH BOWMAN Report Released Date/Time: Sep 24, 2022 01:55 PM Reporting Lab: [facility] [address] Performing Lab: [facility] [address] [place] [facility] URINALYS IS SPECIFIC GRAVITY OF URINE 1.023 1.003 - 1.035 10/08 Specimen Type: URINE No comment entered. Ordering Provider: ANKUSH BOWMAN Report Released Date/Time: Sep 24, 2022 01:55 PM Reporting Lab: [facility] [address] Performing Lab: [facility] [address] [place] [facility] URINALYS IS BILIRUBIN. TOTAL [PRESENCE] IN URINE BY TEST STRIP NEGATIVE 10/08 Specimen Type: URINE No comment entered. Ordering Provider: ANKUSH BOWMAN Report Released Date/Time: Sep 24, 2022 01:55 PM Reporting Lab: [facility] [address] Performing Lab: [facility] [address] [place] [facility] URINALYS IS KETONES [MASS/VOLU ME] IN URINE BY TEST STRIP NEGATIVE 10/08 Specimen Type: URINE No comment entered. Ordering Provider: ANKUSH BOWMAN Report Released Date/Time: Sep 24, 2022 01:55 PM Reporting Lab: [facility] [address] Performing Lab: [facility] [address] [place] [facility] URINALYS IS GLUCOSE [MASS/VOLU ME] IN URINE BY TEST STRIP NEGATIVE 10/08 Specimen Type: URINE No comment entered. Ordering Provider: ANKUSH BOWMAN Report Released Date/Time: Sep 24, 2022 01:55 PM Reporting Lab: [facility] [address] Performing Lab: [facility] [address] [place] [facility] URINALYS IS PROTEIN [MASS/VOLU ME] IN URINE BY TEST STRIP 30 10/08 Specimen Type: URINE No comment entered. Ordering Provider: ANKUSH BOWMAN Report Released Date/Time: Sep 24, 2022 01:55 PM Reporting Lab: [facility] [address] Performing Lab: [facility] [address] [place] [facility] URINALYS IS PH OF URINE BY TEST STRIP 7.5 5.0 - 8.0 10/08 Specimen Type: URINE No comment entered. Ordering Provider: ANKUSH BOWMAN Report Released Date/Time: Sep 24, 2022 01:55 PM Reporting Lab: [facility] [address] Performing Lab: [facility] [address] [place] [facility] URINALYS IS LEUKOCYTES [#/AREA] IN URINE SEDIMENT BY MICROSCOPY HIGH POWER FIELD >180 0 - 7 10/08 H Specimen Type: URINE No comment entered. Ordering Provider: ANKUSH BOWMAN Report Released Date/Time: Sep 24, 2022 01:55 PM Reporting Lab: [facility] [address] Performing Lab: [facility] [address] [place] [facility] URINALYS IS BACTERIA [PRESENCE] IN URINE SEDIMENT BY LIGHT MICROSCOPY MANY 10/08 Specimen Type: URINE No comment entered. Ordering Provider: ANKUSH BOWMAN Report Released Date/Time: Sep 24, 2022 01:55 PM Reporting Lab: [facility] [address] Performing Lab: [facility] [address] [place] [facility] URINALYS IS ERYTHROCYT ES [#/AREA] IN URINE SEDIMENT BY MICROSCOPY HIGH POWER FIELD 33 0 - 3 10/08 H Specimen Type: URINE No comment entered. Ordering Provider: ANKUSH BOWMAN Report Released Date/Time: Sep 24, 2022 01:55 PM Reporting Lab: [facility] [address] Performing Lab: [facility] [address] [place] [facility] URINALYS IS APPEARANCE OF URINE EX.TURBI D 10/08 Specimen Type: URINE No comment entered. Ordering Provider: ANKUSH BOWMAN Report Released Date/Time: Sep 24, 2022 01:55 PM Reporting Lab: [facility] [address] Performing Lab: [facility] [address] [place] [facility] URINALYS IS EPITHELIAL CELLS.SQUA MOUS [#/AREA] IN URINE SEDIMENT BY MICROSCOPY HIGH POWER FIELD 1 10/08 Specimen Type: URINE No comment entered. Ordering Provider: ANKUSH BOWMAN Report Released Date/Time: Sep 24, 2022 01:55 PM Reporting Lab: [facility] [address] Performing Lab: [facility] [address] [place] [facility] URINALYS IS HEMOGLOBIN [PRESENCE] IN URINE BY TEST STRIP 1+ 10/08 Specimen Type: URINE No comment entered. Ordering Provider: ANKUSH BOWMAN Report Released Date/Time: Sep 24, 2022 01:55 PM Reporting Lab: [facility] [address] Performing Lab: [facility] [address] [place] [facility] URINALYS IS NITRITE [PRESENCE] IN URINE BY TEST STRIP NEGATIVE 10/08 Specimen Type: URINE No comment entered. Ordering Provider: ANKUSH BOWMAN Report Released Date/Time: Sep 24, 2022 01:55 PM Reporting Lab: [facility] [address] Performing Lab: [facility] [address] [place] [facility] URINALYS IS LEUKOCYTE CLUMPS [#/VOLUME] IN URINE BY AUTOMATED COUNT PRESENT 10/08 Specimen Type: URINE No comment entered. Ordering Provider: ANKUSH BOWMAN Report Released Date/Time: Sep 24, 2022 01:55 PM Reporting Lab: [facility] [address] Performing Lab: [facility] [address] [place] [facility] URINALYS IS LEUKOCYTE ESTERASE [PRESENCE] IN URINE BY TEST STRIP 500 10/08 Specimen Type: URINE No comment entered. Ordering Provider: ANKUSH BOWMAN Report Released Date/Time: Sep 24, 2022 01:55 PM Reporting Lab: [facility] [address] Performing Lab: [facility] [address] [place] [facility] ALBUMIN ALBUMIN [MASS/VOLU ME] IN SERUM OR PLASMA 4.2 3.5 - 5.2 10/08 Specimen Type: PLASMA No comment entered. Ordering Provider: ANKUSH BOWMAN Report Released Date/Time: Sep 24, 2022 01:55 PM Reporting Lab: [facility] [address] Performing Lab: [facility] [address] [place] [facility] PRE-ALBU MIN PREALBUMIN [MASS/VOLU ME] IN SERUM OR PLASMA 28.4 14.0 - 45.0 10/08 Specimen Type: SERUM No comment entered. Ordering Provider: ANKUSH BOWMAN Report Released Date/Time: Sep 24, 2022 01:55 PM Reporting Lab: [facility] [address] Performing Lab: [facility] [address] [place] [facility] COMPREHE NSIVE METABOLI C PANEL+MG CREATININE [MASS/VOLU ME] IN SERUM OR PLASMA 0.7 0.7 - 1.2 10/08 Specimen Type: PLASMA No comment entered. Ordering Provider: ANKUSH BOWMAN Report Released Date/Time: Sep 24, 2022 01:55 PM Reporting Lab: [facility] [address] Performing Lab: [facility] [address] [place] [facility] COMPREHE NSIVE METABOLI C PANEL+MG UREA NITROGEN [MASS/VOLU ME] IN SERUM OR PLASMA 16 8 - 26 10/08 Specimen Type: PLASMA No comment entered. Ordering Provider: ANKUSH BOWMAN Report Released Date/Time: Sep 24, 2022 01:55 PM Reporting Lab: [facility] [address] Performing Lab: [facility] [address] [place] [facility] COMPREHE NSIVE METABOLI C PANEL+MG GLUCOSE [MASS/VOLU ME] IN SERUM OR PLASMA 94 70 - 100 10/08 Specimen Type: PLASMA No comment entered. Ordering Provider: ANKUSH BOWMAN Report Released Date/Time: Sep 24, 2022 01:55 PM Reporting Lab: [facility] [address] Performing Lab: [facility] [address] [place] [facility] COMPREHE NSIVE METABOLI C PANEL+MG SODIUM [MOLES/VOL UME] IN SERUM OR PLASMA 138 136 - 145 10/08 Specimen Type: PLASMA No comment entered. Ordering Provider: ANKUSH BOWMAN Report Released Date/Time: Sep 24, 2022 01:55 PM Reporting Lab: [facility] [address] Performing Lab: [facility] [address] [place] [facility] COMPREHE NSIVE METABOLI C PANEL+MG POTASSIUM [MOLES/VOL UME] IN SERUM OR PLASMA 3.9 3.5 - 5.1 10/08 Specimen Type: PLASMA No comment entered. Ordering Provider: ANKUSH BOWMAN Report Released Date/Time: Sep 24, 2022 01:55 PM Reporting Lab: [facility] [address] Performing Lab: [facility] [address] [place] [facility] COMPREHE NSIVE METABOLI C PANEL+MG CHLORIDE [MOLES/VOL UME] IN SERUM OR PLASMA 101 98 - 107 10/08 Specimen Type: PLASMA No comment entered. Ordering Provider: ANKUSH BOWMAN Report Released Date/Time: Sep 24, 2022 01:55 PM Reporting Lab: [facility] [address] Performing Lab: [facility] [address] [place] [facility] COMPREHE NSIVE METABOLI C PANEL+MG CARBON DIOXIDE, TOTAL [MOLES/VOL UME] IN SERUM OR PLASMA - 29 10/08 Specimen Type: PLASMA No comment entered. Ordering Provider: ANKUSH BOWMAN Report Released Date/Time: Sep 24, 2022 01:55 PM Reporting Lab: [facility] [address] Performing Lab: [facility] [address] [place] [facility] COMPREHE NSIVE METABOLI C PANEL+MG CALCIUM [MASS/VOLU ME] IN SERUM OR PLASMA 9.7 8.4 - 10.2 10/08 Specimen Type: PLASMA No comment entered. Ordering Provider: ANKUSH BOWMAN Report Released Date/Time: Sep 24, 2022 01:55 PM Reporting Lab: [facility] [address] Performing Lab: [facility] [address] [place] [facility] COMPREHE NSIVE METABOLI C PANEL+MG PROTEIN [MASS/VOLU ME] IN SERUM OR PLASMA 7.6 6.0 - 8.3 10/08 Specimen Type: PLASMA No comment entered. Ordering Provider: ANKUSH BOWMAN Report Released Date/Time: Sep 24, 2022 01:55 PM Reporting Lab: [facility] [address] Performing Lab: [facility] [address] [place] [facility] COMPREHE NSIVE METABOLI C PANEL+MG ALBUMIN [MASS/VOLU ME] IN SERUM OR PLASMA 4.2 3.5 - 5.2 10/08 Specimen Type: PLASMA No comment entered. Ordering Provider: ANKUSH BOWMAN Report Released Date/Time: Sep 24, 2022 01:55 PM Reporting Lab: [facility] [id number] Performing Lab: [facility] [address] [place] [facility] COMPREHE NSIVE METABOLI C PANEL+MG BILIRUBIN. TOTAL [MASS/VOLU ME] IN SERUM OR PLASMA 0.6 0.2 - 1.2 10/08 Specimen Type: PLASMA No comment entered. Ordering Provider: ANKUSH BOWMAN Report Released Date/Time: Sep 24, 2022 01:55 PM Reporting Lab: [facility] [address] Performing Lab: [facility] [address] [place] [facility] COMPREHE NSIVE METABOLI C PANEL+MG MAGNESIUM [MASS/VOLU ME] IN SERUM OR PLASMA 2.1 1.6 - 2.6 10/08 Specimen Type: PLASMA No comment entered. Ordering Provider: ANKUSH BOWMAN Report Released Date/Time: Sep 24, 2022 01:55 PM Reporting Lab: [facility] [address] Performing Lab: [facility] [address] [place] [facility] COMPREHE NSIVE METABOLI C PANEL+MG ANION GAP IN SERUM OR PLASMA 9 5 - 15 10/08 Specimen Type: PLASMA No comment entered. Ordering Provider: ANKUSH BOWMAN Report Released Date/Time: Sep 24, 2022 01:55 PM Reporting Lab: [facility] [address] Performing Lab: [facility] [address] [facility] COMPREHE NSIVE METABOLI C PANEL+MG ALKALINE PHOSPHATAS E [ENZYMATIC ACTIVITY/V OLUME] IN SERUM OR PLASMA 96 40 - 150 10/08 Specimen Type: PLASMA No comment entered. Ordering Provider: ANKUSH BOWMAN Report Released Date/Time: Sep 24, 2022 01:55 PM Reporting Lab: [facility] [address] Performing Lab: [facility] [address] [facility] COMPREHE NSIVE METABOLI C PANEL+MG ALANINE AMINOTRANS FERASE [ENZYMATIC ACTIVITY/V OLUME] IN SERUM OR PLASMA 29 <55 - 55 10/08 Specimen Type: PLASMA No comment entered. Ordering Provider: ANKUSH BOWMAN Report Released Date/Time: Sep 24, 2022 01:55 PM Reporting Lab: [facility] [address] Performing Lab: [facility] [address] [place] [facility] COMPREHE NSIVE METABOLI C PANEL+MG ASPARTATE AMINOTRANS FERASE [ENZYMATIC ACTIVITY/V OLUME] IN SERUM OR PLASMA 22 <34 - 34 10/08 Specimen Type: PLASMA No comment entered. Ordering Provider: ANKUSH BOWMAN Report Released Date/Time: Sep 24, 2022 01:55 PM Reporting Lab: [facility] [address] Performing Lab: [facility] [address] [place] [facility] COMPREHE NSIVE METABOLI C PANEL+MG GLOMERULAR FILTRATION RATE/1.73 SQ M.PREDICTE D [VOLUME RATE/AREA] IN SERUM, PLASMA OR BLOOD BY CREATININE -BASED FORMULA (CKD-EPI) >90 60 10/08 Specimen Type: PLASMA No comment entered. Ordering Provider: ANKUSH BOWMAN Report Released Date/Time: Sep 24, 2022 01:55 PM Reporting Lab: [facility] [address] Performing Lab: [facility] [address] [place] [facility] CBC & DIFF LEUKOCYTES [#/VOLUME] IN BLOOD BY AUTOMATED COUNT 7.32 4.0 - 11.0 10/08 Specimen Type: BLOOD Comment: Automated Differentia l Performed Ordering Provider: ANKUSH BOWMAN Report Released Date/Time: Sep 24, 2022 01:55 PM Reporting Lab: [facility] [address] Performing Lab: [facility] [address] [place] [facility] CBC & DIFF ERYTHROCYT ES [#/VOLUME] IN BLOOD BY AUTOMATED COUNT 4.80 4.6 - 6.2 10/08 Specimen Type: BLOOD Comment: Automated Differentia l Performed Ordering Provider: ANKUSH BOWMAN Report Released Date/Time: Sep 24, 2022 01:55 PM Reporting Lab: [facility] [address] Performing Lab: [facility] [address] [place] [facility] CBC & DIFF HEMOGLOBIN [MASS/VOLU ME] IN BLOOD 14.7 13.5 - 17.9 10/08 Specimen Type: BLOOD Comment: Automated Differentia l Performed Ordering Provider: ANKUSH BOWMAN Report Released Date/Time: Sep 24, 2022 01:55 PM Reporting Lab: [facility] [address] Performing Lab: [facility] [address] [place] [facility] CBC & DIFF HEMATOCRIT [VOLUME FRACTION] OF BLOOD BY AUTOMATED COUNT 44.2 41 - 54 10/08 Specimen Type: BLOOD Comment: Automated Differentia l Performed Ordering Provider: ANKUSH BOWMAN Report Released Date/Time: Sep 24, 2022 01:55 PM Reporting Lab: [facility] [address] Performing Lab: [facility] [address] [place] [facility] CBC & DIFF MCV [ENTITIC VOLUME] BY AUTOMATED COUNT 92.1 80 - 100 10/08 Specimen Type: BLOOD Comment: Automated Differentia l Performed Ordering Provider: ANKUSH BOWMAN Report Released Date/Time: Sep 24, 2022 01:55 PM Reporting Lab: [facility] [address] Performing Lab: [facility] [address] [place] [facility] CBC & DIFF MCH [ENTITIC MASS] BY AUTOMATED COUNT 30.6 27 - 33 10/08 Specimen Type: BLOOD Comment: Automated Differentia l Performed Ordering Provider: ANKUSH BOWMAN Report Released Date/Time: Sep 24, 2022 01:55 PM Reporting Lab: [facility] [address] Performing Lab: [facility] [address] [place] [facility] CBC & DIFF MCHC [MASS/VOLU ME] BY AUTOMATED COUNT 33.3 32.0 - 37.5 10/08 Specimen Type: BLOOD Comment: Automated Differentia l Performed Ordering Provider: ANKUSH BOWMAN Report Released Date/Time: Sep 24, 2022 01:55 PM Reporting Lab: [facility] [address] Performing Lab: [facility] [address] [place] [facility] CBC & DIFF PLATELETS [#/VOLUME] IN BLOOD BY AUTOMATED COUNT 144 150 - 400 10/08 L Specimen Type: BLOOD Comment: Automated Differentia l Performed Ordering Provider: ANKUSH BOWMAN Report Released Date/Time: Sep 24, 2022 01:55 PM Reporting Lab: [facility] [address] Performing Lab: [facility] [address] [place] [facility] CBC & DIFF PLATELET MEAN VOLUME [ENTITIC VOLUME] IN BLOOD BY AUTOMATED COUNT 10.8 7.4 - 10.4 10/08 H Specimen Type: BLOOD Comment: Automated Differentia l Performed Ordering Provider: ANKUSH BOWMAN Report Released Date/Time: Sep 24, 2022 01:55 PM Reporting Lab: [facility] [address] Performing Lab: [facility] [address] [place] [facility] CBC & DIFF NEUTROPHIL S/100 LEUKOCYTES IN BLOOD BY MANUAL COUNT 55.5 10/08 Specimen Type: BLOOD Comment: Automated Differentia l Performed Ordering Provider: ANKUSH BOWMAN Report Released Date/Time: Sep 24, 2022 01:55 PM Reporting Lab: [facility] [address] Performing Lab: [facility] [address] [place] [facility] CBC & DIFF LYMPHOCYTE S/100 LEUKOCYTES IN BLOOD BY MANUAL COUNT 31.4 10/08 Specimen Type: BLOOD Comment: Automated Differentia l Performed Ordering Provider: ANKUSH BOWMAN Report Released Date/Time: Sep 24, 2022 01:55 PM Reporting Lab: [facility] [address] Performing Lab: [facility] [address] [place] [facility] CBC & DIFF MONOCYTES/ 100 LEUKOCYTES IN BLOOD BY AUTOMATED COUNT 10.2 10/08 Specimen Type: BLOOD Comment: Automated Differentia l Performed Ordering Provider: ANKUSH BOWMAN Report Released Date/Time: Sep 24, 2022 01:55 PM Reporting Lab: [facility] [address] Performing Lab: [facility] [address] [place] [facility] CBC & DIFF EOSINOPHIL S/100 LEUKOCYTES IN BLOOD BY AUTOMATED COUNT 2.2 10/08 Specimen Type: BLOOD Comment: Automated Differentia l Performed Ordering Provider: ANKUSH BOWMAN Report Released Date/Time: Sep 24, 2022 01:55 PM Reporting Lab: [facility] [address] Performing Lab: [facility] [address] [place] [facility] CBC & DIFF BASOPHILS/ 100 LEUKOCYTES IN BLOOD BY MANUAL COUNT 0.4 10/08 Specimen Type: BLOOD Comment: Automated Differentia l Performed Ordering Provider: ANKUSH BOWMAN Report Released Date/Time: Sep 24, 2022 01:55 PM Reporting Lab: [facility] [address] Performing Lab: [facility] [address] [place] [facility] CBC & DIFF ERYTHROCYT E DISTRIBUTI ON WIDTH [RATIO] BY AUTOMATED COUNT 15.9 11.5 - 14.5 10/08 H Specimen Type: BLOOD Comment: Automated Differentia l Performed Ordering Provider: ANKUSH BOWMAN Report Released Date/Time: Sep 24, 2022 01:55 PM Reporting Lab: [facility] [address] Performing Lab: [facility] [address] [place] [facility] CBC & DIFF LYMPHOCYTE S [#/VOLUME] IN BLOOD BY AUTOMATED COUNT 2.30 1.0 - 4.0 10/08 Specimen Type: BLOOD Comment: Automated Differentia l Performed Ordering Provider: ANKUSH BOWMAN Report Released Date/Time: Sep 24, 2022 01:55 PM Reporting Lab: [facility] [address] Performing Lab: [facility] [address] [place] [facility] CBC & DIFF MONOCYTES [#/VOLUME] IN BLOOD BY AUTOMATED COUNT 0.75 0.1 - 1.0 10/08 Specimen Type: BLOOD Comment: Automated Differentia l Performed Ordering Provider: ANKUSH BOWMAN Report Released Date/Time: Sep 24, 2022 01:55 PM Reporting Lab: [facility] [address] Performing Lab: [facility] [address] [place] [facility] CBC & DIFF NEUTROPHIL S [#/VOLUME] IN BLOOD BY AUTOMATED COUNT 4.06 2.0 - 7.7 10/08 Specimen Type: BLOOD Comment: Automated Differentia l Performed Ordering Provider: ANKUSH BOWMAN Report Released Date/Time: Sep 24, 2022 01:55 PM Reporting Lab: [facility] [address] Performing Lab: [facility] [address] [place] [facility] CBC & DIFF EOSINOPHIL S [#/VOLUME] IN BLOOD BY AUTOMATED COUNT 0.16 0 - 0.5 10/08 Specimen Type: BLOOD Comment: Automated Differentia l Performed Ordering Provider: ANKUSH BOWMAN Report Released Date/Time: Sep 24, 2022 01:55 PM Reporting Lab: [facility] [address] Performing Lab: [facility] [address] [place] [facility] CBC & DIFF BASOPHILS [#/VOLUME] IN BLOOD BY AUTOMATED COUNT 0.03 0 - 0.2 10/08 Specimen Type: BLOOD Comment: Automated Differentia l Performed Ordering Provider: ANKUSH BOWMAN Report Released Date/Time: Sep 24, 2022 01:55 PM Reporting Lab: [facility] [address] Performing Lab: [facility] [address] [place] [facility] CBC & DIFF IG(META,MY MALACHI,PRO) 0.3 10/08 Specimen Type: BLOOD Comment: Automated Differentia l Performed Ordering Provider: ANKUSH BOWMAN Report Released Date/Time: Sep 24, 2022 01:55 PM Reporting Lab: [facility] [address] Performing Lab: [facility] [address] [place] [facility] CBC & DIFF IMMATURE GRANULOCYT ES [PRESENCE] IN BLOOD BY AUTOMATED COUNT 0.02 0 - 0.1 10/08 Specimen Type: BLOOD Comment: Automated Differentia l Performed Ordering Provider: ANKUSH BOWMAN Report Released Date/Time: Sep 24, 2022 01:55 PM Reporting Lab: [facility] [address] Performing Lab: [facility] [address] [place] [facility] CYSTATIN C WITH EGFR CYSTATIN C [MASS/VOLU ME] IN SERUM OR PLASMA 1.38 0.51 - 1.05 10/08 H Specimen Type: PLASMA No comment entered. Ordering Provider: ANKUSH BOWMAN Report Released Date/Time: Sep 24, 2022 01:55 PM Reporting Lab: [facility] [address] Performing Lab: [facility] [address] [place] [facility] CYSTATIN C WITH EGFR CYSTATIN C AND GLOMERULAR FILTRATION RATE BY CYSTATIN-B ASED FORMULA PANEL - SERUM OR PLASMA 48 60 10/08 L Specimen Type: PLASMA No comment entered. Ordering Provider: ANKUSH BOWMAN Report Released Date/Time: Sep 24, 2022 01:55 PM Reporting Lab: [facility] [address] Performing Lab: [facility] [address] [place] [facility] VIT D 25-OH,TO ZAMZAM 25-HYDROXY VITAMIN D3 [MASS/VOLU ME] IN SERUM OR PLASMA 54 12 - 50 10/08 H Specimen Type: SERUM No comment entered. Ordering Provider: ANKUSH BOWMAN Report Released Date/Time: Sep 24, 2022 01:55 PM Reporting Lab: [facility] [address] Performing Lab: [facility] [address] [place] [facility] COMPREHE NSIVE METABOLI C PANEL+MG CREATININE [MASS/VOLU ME] IN SERUM OR PLASMA 0.7 0.7 - 1.2 05/28 Specimen Type: PLASMA No comment entered. Ordering Provider: GERMANIA HANSON Report Released Date/Time: May 28, 2022 03:06 PM Reporting Lab: [facility] [address] Performing Lab: [facility] [address] [facility] COMPREHE NSIVE METABOLI C PANEL+MG UREA NITROGEN [MASS/VOLU ME] IN SERUM OR PLASMA 13 8 - 26 05/28 Specimen Type: PLASMA No comment entered. Ordering Provider: GERMANIA HANSON Report Released Date/Time: May 28, 2022 03:06 PM Reporting Lab: [facility] [address] Performing Lab: [facility] [address] [facility] COMPREHE NSIVE METABOLI C PANEL+MG GLUCOSE [MASS/VOLU ME] IN SERUM OR PLASMA 98 74 - 100 05/28 Specimen Type: PLASMA No comment entered. Ordering Provider: GERMANIA HANSON Report Released Date/Time: May 28, 2022 03:06 PM Reporting Lab: [facility] [address] Performing Lab: [facility] [address] [facility] COMPREHE NSIVE METABOLI C PANEL+MG SODIUM [MOLES/VOL UME] IN SERUM OR PLASMA 138 136 - 145 05/28 Specimen Type: PLASMA No comment entered. Ordering Provider: GERMANIA HANSON Report Released Date/Time: May 28, 2022 03:06 PM Reporting Lab: [facility] [address] Performing Lab: [facility] [address] [facility] COMPREHE NSIVE METABOLI C PANEL+MG POTASSIUM [MOLES/VOL UME] IN SERUM OR PLASMA 4.4 3.5 - 5.1 05/28 Specimen Type: PLASMA No comment entered. Ordering Provider: GERMANIA HANSON Report Released Date/Time: May 28, 2022 03:06 PM Reporting Lab: [facility] [address] Performing Lab: [facility] [address] [facility] COMPREHE NSIVE METABOLI C PANEL+MG CHLORIDE [MOLES/VOL UME] IN SERUM OR PLASMA 102 98 - 107 05/28 Specimen Type: PLASMA No comment entered. Ordering Provider: GERMANIA HANSON Report Released Date/Time: May 28, 2022 03:06 PM Reporting Lab: [facility] [address] Performing Lab: [facility] [address] [facility] COMPREHE NSIVE METABOLI C PANEL+MG CARBON DIOXIDE, TOTAL [MOLES/VOL UME] IN SERUM OR PLASMA 28 22 - 29 05/28 Specimen Type: PLASMA No comment entered. Ordering Provider: GERMANIA HANSON Report Released Date/Time: May 28, 2022 03:06 PM Reporting Lab: [facility] [address] Performing Lab: [facility] [address] [facility] COMPREHE NSIVE METABOLI C PANEL+MG CALCIUM [MASS/VOLU ME] IN SERUM OR PLASMA 9.4 8.4 - 10.2 07/18 /2022 Specimen Type: PLASMA No comment entered. Ordering Provider: GERMANIA HANSON Report Released Date/Time: May 28, 2022 03:06 PM Reporting Lab: [facility] [address] Performing Lab: [facility] [address] [facility] COMPREHE NSIVE METABOLI C PANEL+MG PROTEIN [MASS/VOLU ME] IN SERUM OR PLASMA 7.6 6.0 - 8.3 05/28 Specimen Type: PLASMA No comment entered. Ordering Provider: GERMANIA HANSON Report Released Date/Time: May 28, 2022 03:06 PM Reporting Lab: [facility] [address] Performing Lab: [facility] [address] [facility] COMPREHE NSIVE METABOLI C PANEL+MG ALBUMIN [MASS/VOLU ME] IN SERUM OR PLASMA 4.0 3.5 - 5.2 05/28 Specimen Type: PLASMA No comment entered. Ordering Provider: GERMANIA HANSON Report Released Date/Time: May 28, 2022 03:06 PM Reporting Lab: [facility] [address] Performing Lab: [facility] [address] [facility] COMPREHE NSIVE METABOLI C PANEL+MG BILIRUBIN. TOTAL [MASS/VOLU ME] IN SERUM OR PLASMA 0.5 0.2 - 1.2 05/28 Specimen Type: PLASMA No comment entered. Ordering Provider: GERMANIA HANSON Report Released Date/Time: May 28, 2022 03:06 PM Reporting Lab: [facility] [address] Performing Lab: [facility] [address] [facility] COMPREHE NSIVE METABOLI C PANEL+MG MAGNESIUM [MASS/VOLU ME] IN SERUM OR PLASMA 2.1 1.6 - 2.6 05/28 Specimen Type: PLASMA No comment entered. Ordering Provider: GERMANIA HANSON Report Released Date/Time: May 28, 2022 03:06 PM Reporting Lab: [facility] [address] Performing Lab: [facility] [address] [facility] COMPREHE NSIVE METABOLI C PANEL+MG ANION GAP IN SERUM OR PLASMA 8 5 - 15 05/28 Specimen Type: PLASMA No comment entered. Ordering Provider: GERMANIA HANSON Report Released Date/Time: May 28, 2022 03:06 PM Reporting Lab: [facility] [address] Performing Lab: [facility] [address] [facility] COMPREHE NSIVE METABOLI C PANEL+MG ALKALINE PHOSPHATAS E [ENZYMATIC ACTIVITY/V OLUME] IN SERUM OR PLASMA 108 40 - 150 05/28 Specimen Type: PLASMA No comment entered. Ordering Provider: GERMANIA HANSON Report Released Date/Time: May 28, 2022 03:06 PM Reporting Lab: [facility] [address] Performing Lab: [facility] [address] [facility] COMPREHE NSIVE METABOLI C PANEL+MG ALANINE AMINOTRANS FERASE [ENZYMATIC ACTIVITY/V OLUME] IN SERUM OR PLASMA 27 <55 - 55 05/28 Specimen Type: PLASMA No comment entered. Ordering Provider: GERMANIA HANSON Report Released Date/Time: May 28, 2022 03:06 PM Reporting Lab: [facility] [address] Performing Lab: [facility] [address] [facility] COMPREHE NSIVE METABOLI C PANEL+MG ASPARTATE AMINOTRANS FERASE [ENZYMATIC ACTIVITY/V OLUME] IN SERUM OR PLASMA 21 <34 - 34 05/28 Specimen Type: PLASMA No comment entered. Ordering Provider: GERMANIA HANSON Report Released Date/Time: May 28, 2022 03:06 PM Reporting Lab: [facility] [address] Performing Lab: [facility] [address] [facility] COMPREHE NSIVE METABOLI C PANEL+MG GLOMERULAR FILTRATION RATE/1.73 SQ M.PREDICTE D [VOLUME RATE/AREA] IN SERUM, PLASMA OR BLOOD BY CREATININE -BASED FORMULA (CKD-EPI) >90 60 05/28 Specimen Type: PLASMA No comment entered. Ordering Provider: GERMANIA HANSON Report Released Date/Time: May 28, 2022 03:06 PM Reporting Lab: [facility] [address] Performing Lab: [facility] [address] [facility] Vital Signs Combined list of inpatient and outpatient Vital Signs from Department of Defense and Veterans Affairs, ranging from 12 months to all on record, depending upon the facility. Vital Sign Value Date Comments Source SYSTOLIC BLOOD PRESSURE 103 02/13/2023 10:58:23 [facility] DIASTOLIC BLOOD PRESSURE 66 02/13/2023 10:58:23 [facility] PULSE OXIMETRY 98% 02/13/2023 10:58:23 [place] [facility] PAIN 4 02/13/2023 10:58:23 [facility] TEMPERATURE 96.2 02/13/2023 10:58:23 [facility] PULSE 86 02/13/2023 10:58:23 [facility] RESPIRATION 16 02/13/2023 10:58:23 [facility] WEIGHT 225 02/05/2023 15:39:35 [facility] BMI 33kg/m2 02/05/2023 15:39:35 [facility] Encounters Combined list of: 1) Encounters from Department of Veterans Affairs facilities going back up to thelast 18 months. 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 Location Location Details Encounter Type Encounter Number Reason For Visit Attending Provider ADM Date DC Date Status Disposition Source [facility] OFFICE O/P [place] 60-74 MIN [id number] Diagnos is: ICD-10- CM C72.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
JANNA HANSON 05/28 [facility] [place] [facility] Outpatient Encounter [id number] 05/30 [place] [facility] [place] [facility] Outpatient Encounter [id number] 06/01 [place] [facility] [place] [facility] Outpatient Encounter [id number] 06/04 [place] [facility] [place] [facility] Outpatient Encounter [id number] 06/05 [facility] [place] [facility] SELF CARE MNGMENT TRAINING [id number] Diagnos is: ICD-10- CM Z73.6 Limitat ion of activit ies due to disabil ity<br/ > NADEEN MITCHELL 06[facility]07 [facility] [place] [facility] Outpatient Encounter [id number] 06/07 [facility] OT EVAL HIGH COMPLEX 60 MIN [id number] Diagnos is: ICD-10- CM R54 Age-rel ated physica l debilit y
SAVANNA MCKINLEY 06/07 [facility] [place] [facility] Outpatient Encounter [id number] 06/11 [facility] [place] [facility] Outpatient Encounter [id number] 06/11 [facility] [place] [facility] Outpatient Encounter [id number] 06/12 [facility] [place] [facility] Outpatient Encounter [id number] 06/15 [facility] [place] [facility] Outpatient Encounter [id number] 06/21 [facility] [place] [facility] Outpatient Encounter [id number] 06/25 [facility] [place] [facility] OFFICE O/P NEW LOW 30-44 MIN [id number] Diagnos is: ICD-10- CM G82.20 Paraple mary kay, unspeci fied
ME LOGAN BOWMAN 06/27 [facility] [place] [facility] Outpatient Encounter [id number] 06/27 [facility] SELF CARE MNGMENT TRAINING [id number] Diagnos is: ICD-10- CM Z73.6 Limitat ion of activit ies due to disabil ity<br/ > AVE HALEY M 07/11 [facility] Outpatient Encounter [id number] 07/18 [facility] SELF CARE MNGMENT TRAINING [id number] Diagnos is: ICD-10- CM Z73.6 Limitat ion of activit ies due to disabil ity<br/ > RACIEL CHOWDHURY 07/23 [facility] SELF CARE MNGMENT TRAINING [id number] Diagnos is: ICD-10- CM Z73.6 Limitat ion of activit ies due to disabil ity<br/ > AVE HALEY M 07/25 [facility] OT EVAL MOD COMPLEX 45 MIN [id number] Diagnos is: ICD-10- CM Z73.6 Limitat ion of activit ies due to disabil ity<br/ > AVE HALEY M 07/25 [facility] Outpatient Encounter [id number] Diagnos is: ICD-10- CM R26.9 Unspeci fied abnorma lities of gait and mobilit y
KARI JORDAN M 07/31 [facility] OFFICE O/P EST MOD 30-39 MIN [id number] Diagnos is: ICD-10- CM G82.20 Paraple mary kay, unspeci fied
ME LOGAN BOWMAN 08/01 [facility] Outpatient Encounter [id number] [facility] Outpatient Encounter [id number] 09/20 [facility] OFFICE O/P EST MINIMAL PROB [id number] Diagnos is: ICD-10- CM G82.20 Paraple mary kay, unspeci fied
Jey PATTON V 10/08 [facility] ASSISTIVE TECHNOLOGY ASSESS [id number] Diagnos is: ICD-10- CM Z73.6 Limitat ion of activit ies due to disabil ity<br/ > BOUSLOG,RY AN P 10/08 [facility] Outpatient Encounter [id number] 10/09 [facility] Outpatient Encounter [id number] 10/11 [facility] HC PRO PHONE CALL 5-10 MIN [id number] Diagnos is: ICD-10- CM Z73.6 Limitat ion of activit ies due to disabil ity<br/ > AVE HALEY 12/13 [facility] Outpatient Encounter [id number] 01/08 [facility] HC PRO PHONE CALL 21-30 MIN [id number] Diagnos is: ICD-10- CM G82.20 Paraple mary kay, unspeci fied
Hever CASTRO 01/08 [facility] Outpatient Encounter [phone] 01/09 [facility] DIABETIC MANAGEMENT PROGRAM, [phone] Diagnos is: ICD-10- CM G82.20 Paraple mary kay, unspeci fied
TIGIST BASSETT A 01/30 [facility] Outpatient Encounter [id number] [facility] MTMS BY PHARM ADDL 15 MIN [id number] Diagnos is: ICD-10- CM G82.20 Paraple mary kay, unspeci fied
MANPREET BARRETTEY N 02/05 [facility] OT EVAL LOW COMPLEX 30 MIN [id number] Diagnos is: ICD-10- CM Z73.6 Limitat ion of activit ies due to disabil ity<br/ > Bryn PARDO 02/05 [facility] OFF/OP EST MAY X REQ PHY/QHP [phone] Diagnos is: ICD-10- CM G82.20 Paraple mary kay, unspeci fied
NOAHJOSUÉ J 02/05 [facility] PSYCH DIAGNOSTIC EVALUATION [phone] Diagnos is: ICD-10- CM F32.A Depress ion, unspeci fied
BINU GAMEZ 02/05 [facility] OFFICE O/P EST MOD 30-39 MIN [phone] Diagnos is: ICD-10- CM G82.20 Paraple mary kay, unspeci fied
ME LOGAN BOWMAN K 02/05 [facility] PSYCH DIAGNOSTIC EVALUATION [id number] [phone] Diagnos is: ICD-10- CM G82.20 Paraple mary kay, unspeci fied
JENNIFFERAN DESIRE J 02/05 [facility] MEDICAL NUTRITION INDIV IN [phone] Diagnos is: ICD-10- CM Z71.3 Dietary general counsel ing and surveil payal<b r/> Katia ARCHER 02/05 [facility] [place] [phone] Diagnos is: ICD-10- CM Z43.3 Encount er for attenti on to colosto my
VIOLA YOON 02/08 [facility] OFFICE O/P EST HI 40-54 MIN [phone] Diagnos is: ICD-10- CM G82.20 Paraple mary kay, unspeci fied
ME LOGAN BOWMAN 02/13 [facility] WHEELCHAIR MNGMENT TRAINING [id number] [phone] Diagnos is: ICD-10- CM Z73.6 Limitat ion of activit ies due to disabil ity<br/ > BOUSLOG,RY AN P 02/13 [facility] Outpatient Encounter [id number] 02/19 [facility] HC PRO PHONE CALL 11-20 MIN [id number] Diagnos is: ICD-10- CM Z73.6 Limitat ion of activit ies due to disabil ity<br/ > BOUSLOG,RY AN P 04/23 [facility] Outpatient Encounter [id number] 04/24 [facility] Outpatient Encounter [id number] 05/24 [facility] OFF/OP EST MARCH X REQ PHY/QHP [id number] [phone] Diagnos is: ICD-10- CM G82.20 Paraple mary kay, unspeci fied
VIOLA YOON NDJagdish 05/28 [facility] WHEELCHAIR MNGMENT TRAINING [id number] [phone] Diagnos is: ICD-10- CM Z73.6 Limitat ion of activit ies due to disabil ity<br/ > BOUSLOG,RY AN P 06/10 [facility] [place] [facility] Outpatient Encounter [id number] 10/28 [facility] [place] [facility] Outpatient Encounter [id number] 11/20 [facility] Social History Combined list of available smoking, tobacco, and other social history from 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 Social History Type Response Date Comment Sour e Tobacco smoking status [facility] NEVER USED 05/28/20 22 [facility] This section is an empty social history section. [facility] Advance Directives List of completed, amended, or rescinded Advance Directives on record at Department of 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 An actual copy of the Directive is not included. Date Advance Directive Provider Source 02/05/2023 ADVANCE DIRECTIVE DISCUSSION GUSTAVO ABAD [facility]
--- OUTSIDE RECORDS SUMMARY | 2023-12-09 12:47 | XMS_ITS | Encounter Summary ---
Author Name Unknown Organization [facility] Address [address], [place] [address] Care Team Providers Care Metal Cutter Name Role Phone Franklin Squires MD Primary Care Provider [phone] Encounter Details Date Type Department Care Team Description 07/28/2014 Outside Hospital External to External, Provider No address [address] ER VISIT/TRANSFER Social History Tobacco Use [...] filedocumented in this encounter Care Teams Metal Cutter Relationship Specialty Start Date End Date Franklin Squires MD [address] [place] [address] [place] [address] PCP - General Family Practice 03/08/16 documented as of this encounter
--- OUTSIDE RECORDS SUMMARY | 2023-12-09 12:47 | XMS_ITS | Encounter Summary ---
Author Name Unknown Organization [facility] Address [address] [place] [address] Care Team Providers Care Financial Planning Adviser Name Role Phone Franklin Squires MD Primary Care Provider [phone] Encounter Details Date Type Department Care Team Description 08/20/2014 Outside Hospital External to [facility] H[facility]-ADMIT H/P Social History Tobacco Use Types [...] filedocumented in this encounter Care Teams Financial Planning Adviser Relationship Specialty Start Date End Date Franklin Squires MD [address] [facility] [place] [address] PCP - General Family Practice 03/08/16 documented as of this encounter
--- OUTSIDE RECORDS SUMMARY | 2023-12-09 12:47 | XMS_ITS | Encounter Summary ---
Author Name Unknown Organization [facility] Address [address] [address] Care Team Providers Care Metal Rolling Mill Operator Name Role Phone Franklin Squires MD Primary Care Provider Encounter Details Date Type Department Care Team Description 01/06/2016 Correspondence [facility] Radiology [address] [place] [id number] Radiology, Provider MRI SAFETY SHEET AND COMPATIBILITY [...] filedocumented in this encounter Care Teams Metal Rolling Mill Operator Relationship Specialty Start Date End Date Franklin Squires MD [address] [place] [address] [place] [address] PCP - General Family Practice 03/08/16 documented as of this encounter
--- OUTSIDE RECORDS SUMMARY | 2023-12-09 12:47 | XMS_ITS | Encounter Summary ---
Author Name Unknown Organization [facility] Address [address], [place] [address] Care Team Providers Care Trim Die Maker Name Role Phone Franklin Squires MD Primary Care Provider Encounter Details Date Type Department Care Team Description 11/23/2015 Correspondence External to External, [place] [address] LETTER [facility] Social History Tobacco Use [...] on filedocumented in this encounter Care Teams Trim Die Maker Relationship Specialty Start Date End Date Franklin Squires MD [address] [facility] [place] [address] PCP - General Family Practice 03/08/16 documented as of this encounter
--- OUTSIDE RECORDS SUMMARY | 2023-12-09 12:47 | XMS_ITS | Encounter Summary ---
Author Name Unknown Organization [facility] Address [address], [place] [address] Care Team Providers Care Mine Expert Name Role Phone Franklin Squires MD Primary Care Provider [phone] Encounter Details Date Type Department Care Team Description 02/09/2016 Correspondence [facility] Neuro[facility]gery [address] [facility]. [place], [place] [id number] Jodi Aguila PA-C [address] [place] [address] PATIENT LIFT PRESCRIPTION Social History Tobacco Use [...] on filedocumented in this encounter Care Teams Mine Expert Relationship Specialty Start Date End Date Franklin Squires MD [address] [facility] [place] [address] PCP - General Family Practice 03/08/16 documented as of this encounter
--- OUTSIDE RECORDS SUMMARY | 2023-12-09 12:47 | XMS_ITS | Encounter Summary ---
Author Name Unknown Organization [facility] Address [address] [place] [address] Care Team Providers Care Health Outreach Worker Name Role Phone Franklin Squires MD Primary Care Provider Encounter Details Date Type Department Care Team Description 08/20/2014 Outside Hospital External to [facility] Social History Tobacco Use [...] on filedocumented in this encounter Care Teams Health Outreach Worker Relationship Specialty Start Date End Date Franklin Squires MD [address] [facility] [place] [address] PCP - General Family Practice 03/08/16 documented as of this encounter
--- OUTSIDE RECORDS SUMMARY | 2023-12-09 12:47 | XMS_ITS | Clinical Summary ---
Author Name Unknown Organization [facility] Address [place], [place] [address] Care Team Providers Care Die Cast Operator Name Role Phone Zelalem Cohen MD Unavailable [phone] May Randle MD Unavailable [phone] Franklin Squires MD Primary Care Provider Fred Craft Unavailable [phone] Diane Charles MD Unavailable [phone] Julia Ware RN Unavailable [phone] Allergies Active Allergy Reactions Criticality Noted Date [...] bedIndications:Non-heal ing surgical wound, subsequent encounter Drive Sicubo 8 inch low loss mattress and 1/2 rails. Semi-electric bed. Length of need 6 weeks. Bed sprinkler helper:no 1 unit 0 018 Active acetaminophen (TYLENOL [...] 60mm, Cut-to-Fit 01/16 - 2 11/18. Item #05740. 1 Each 11 021 Active gabapentin (NEURONTIN) [...] mg (7.5 mg x 1) every Sat, e, [place]; 5 mg (5 mg x 1) all other days in the evening OR as directed 0 024 Active oxyCODONE 10 mg tabletIndications:Chron ic pain syndrome TAKE ONE TABLET BY MOUTH EVERY 6 HOURS 120 Tablet 0 024 Active ciprofloxacin HCl (CIPRO) 750 mg tablet Take 750 mg by mouth two times daily. 0 024 Active amoxicillin-clavulanate 875-125 mg tablet (AUGMENTIN) Take 1 Tablet by mouth. 0 Active amLODIPine (NORVASC) 5 mg tabletIndications:Labil e hypertension Take 1 Tablet (5 mg) by mouth once daily. 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 [...] delivery 04/16/2007 10/01/2007 Overview: S/P IVC Filter [facility] (current) use of anticoagulants 02/19/2007 09/27/2008 Depressive disorder, not elsewhere classified 02/14/20 07 01/15/2018 Abnormality of gait 12/24/2006 09/27/20 08 Urinary tract infection, site not specified 12/24/2006 01/15/2018 BENIGN ESSENTIAL HYPERTENSION 12/24/2006 04/17/2016 Overview: borderline Necrotizing fasciitis 2018 Type 2 diabetes mellitus Encounters Date Type Department Care Team Description 12/05/2023 Telephone [facility] [address] [place] [place] [address] Franklin Squires MD Form 12/03/2023 Anticoagulation (warfarin) [facility] [address] [place] [phone] 1, [facility] Anticoagulation (acelis) 11/28/2023 Refill [facility] [address] [place] [address] Franklin Squires MD Refill Request (Oxycodone) 11/28/2023 Telephone [facility] [address] [place] [address] Franklin Squires MD Form 11/28/2023 Telephone [facility] [address] [place] [address] Franklin Squires MD Questions (MALAGASY) 11/26/2023 Anticoagulation (warfarin) [facility] [address] [place] [address] 1, [facility] Anticoagulation (Acelis) 11/21/2023 2:00 PM APPLICATION SECURITY CONSULTANT - 11/21/2023 11:59 PM APPLICATION SECURITY CONSULTANT Hospital Encounter [facility] [address] [place] [address] Soft tissue infection (Primary Dx) 11/21/2023 1:00 PM APPLICATION SECURITY CONSULTANT Office Visit [facility] [address] [place] [address] Franklin Squires MD Diabetes 11/21/2023 Anticoagulation (warfarin) [address] [place] [address] 1, [facility] Anticoagulation 11/20/2023 1:53 PM APPLICATION SECURITY CONSULTANT - 11/20/2023 11:59 PM APPLICATION SECURITY CONSULTANT Hospital Encounter [facility] [address] [place] [address] Pressure injury of sacral region, stage 3 (HC) (Primary Dx); Soft tissue infection 11/20/2023 Travel 11/19/2023 Orders Only [facility] [address] [place] [address] Yudith Mcgraw, LOWERATOR OPERATOR 1 scan: PICC LINE, LABS AND INFUSION 11/18/2023 Orders Only [facility] Scanner 1 scan: (1-Ord) STENDAL, MULTIPLE LAB RESULTS, 11/18/2023 11/18/2023 Anticoagulation (warfarin) [address] [place] [address] , [facility] Anticoagulation (Acelis ) 11/18/[address] [place] [address] Franklin Squires MD Form 11/15/[address] [place] [address] Franklin Squires MD Form 11/14/[address] [place] [address] Franklin Squires MD Form 11/13/2023 1:00 PM APPLICATION SECURITY CONSULTANT Nurse/Clinic Staff Only [address] [place] [address] Removal; Insert 11/13/[address] [place] [address] Diane Charles MD Medication Management 11/13/2023 Travel 11/12/[address] [place] [address] Franklin Squires MD Form 11/08/2023 Anticoagulation (warfarin) [facility] [address] [facility] [place] [address] , [facility] Anticoagulation (acelis) 11/06/2023 Orders Only [facility] Scanner 1 scan: (1-Ord) [facility], INR 10/29/23 - 11/05/26, 11/06/2023 11/06/2023 Telephone [facility] [address] [place] [address] 1, [facility] Refill Request (Warfarin 5 mg ) 11/06/2023 Anticoagulation (warfarin) [facility] [address] [place] [address] 1, [facility] Anticoagulation (Chart update) 10/30/2023 Orders Only [facility] Scanner 1 scan: (1-Ord) [facility], SHARP DEBRIDEMENT DOWN TO BONE, 10/30/2023 10/29/2023 10:56 AM APPLICATION SECURITY CONSULTANT - 10/29/2023 11:59 PM APPLICATION SECURITY CONSULTANT Hospital Encounter [facility] [address] [place] [address] Yudith Mcgraw NP Soft tissue infection (Primary Dx) 10/29/2023 Travel 10/29/2023 Anticoagulation (warfarin) [facility] [place] [address] 1, [facility] Anticoagulation (acelis) 10/28/2023 12:28 PM APPLICATION SECURITY CONSULTANT - 10/28/2023 11:59 PM APPLICATION SECURITY CONSULTANT Hospital Encounter [facility] [address] [place] [address] Yudith Mcgraw NP Soft tissue infection (Primary Dx) 10/28/2023 Orders Only [facility] [address] [facility] [place] [address] Diane Charles MD <No scans attached> 10/27/2023 12:26 PM APPLICATION SECURITY CONSULTANT - 10/27/2023 1:35 PM APPLICATION SECURITY CONSULTANT Hospital Encounter [facility] [address] [place] [address] Yudith Mcgraw, Franklin Sorensen MD Soft tissue infection (Primary Dx) Discharge Disposition: Home Self Care 10/27/2023 Travel 10/26/2023 12:41 PM APPLICATION SECURITY CONSULTANT - 10/26/2023 1:28 PM APPLICATION SECURITY CONSULTANT Hospital Encounter [facility] [address] [place] [address] Yudith Mcgraw, Franklin Sorensen MD Soft tissue infection (Primary Dx) Discharge Disposition: Home Self Care 10/26/2023 Travel 10/25/2023 3:42 PM APPLICATION SECURITY CONSULTANT - 10/25/2023 6:10 PM APPLICATION SECURITY CONSULTANT Hospital Encounter [facility] [address] [place] [address] Yudith Mcgraw NP Discharge Disposition: Home Self Care 10/25/2023 12:40 PM APPLICATION SECURITY CONSULTANT - 10/25/2023 1:30 PM APPLICATION SECURITY CONSULTANT Hospital Encounter [facility] [address] [place] [address] Yudith Mcgraw, Franklin Sorensen MD Soft tissue infection (Primary Dx) Discharge Disposition: Home Self Care 10/25/2023 Travel 10/25/2023 Anticoagulation (warfarin) [facility] [address] [place] [address] , [facility] Anticoagulation (acelis) 10/24/2023 12:24 PM APPLICATION SECURITY CONSULTANT - 10/24/2023 11:59 PM APPLICATION SECURITY CONSULTANT Hospital Encounter [facility] [address] [place] [address] Yudith Mcgraw NP Soft tissue infection (Primary Dx) 10/24/2023 Anticoagulation (warfarin) [facility] [address] [place] [address] , [facility] Anticoagulation (Chart update, interacting medication) 10/23/2023 1:30 PM APPLICATION SECURITY CONSULTANT Nurse/Clinic Staff Only [facility] [address] [place] [address] Removal; Insert 10/23/2023 12:22 PM APPLICATION SECURITY CONSULTANT - 10/23/2023 11:59 PM APPLICATION SECURITY CONSULTANT Hospital Encounter [facility] [address] [place] [address] Yudith Mcgraw NP Soft tissue infection (Primary Dx) 10/23/2023 Orders Only [facility] Scanner 1 scan: (1-Ord) [facility], CT PELVIS W CON , 10/23/2023 10/23/2023 Travel 10/23/[address] [place] [address] Franklin Squires MD Refill Request; Medication Management (Clarification of Pot Chlor ER (Disp) Tabs) 10/22/2023 Transcribe Orders [facility] [address] [place] [address] Yudith Mcgraw NP 10/22/[address] [place] [address] Franklin Squires MD Refill Request (Oxycodone, Lorazepam) 10/18/2023 Anticoagulation (warfarin) [address] [address] , [facility] Anticoagulation (acelis) 10/16/[address] [place] [address] Franklin Squires MD Refill Request (Duloxetine) 10/07/[address] [place] [address] Franklin Squires MD Refill Request (Famotidine, Bupropion) 10/02/2023 2:00 PM APPLICATION SECURITY CONSULTANT Nurse/Clinic Staff Only [address] [address] Removal; Insert 10/02/2023 Travel 09/28/2023 Anticoagulation (warfarin) [address] [place] [address] 1, [facility] Anticoagulation (Acelis) 09/24/[address] [place] [address] Franklin Squires MD Refill Request (Oxycodone) 09/20/2023 Anticoagulation (warfarin) [address] [place] [address] 1, [facility] Anticoagulation (Acelis) 09/17/[address] [place] [address] Franklin Squires MD Anticoagulation (Annual re-enrollment ) 09/11/2023 1:30 PM CDT Nurse/Clinic Staff Only [address] [place] [address] Removal; Insert 09/11/2023 Travel from Last 3 Months Immunizations Name Administration Dates Next Due COVID-19 vaccine ([employer] NT[employer] 30mcg/0.3mL) 12YO+ BIVALENT PF, MDV 10/22/2022 COVID-19 vaccine ([employer] NT[employer] 30mcg/0.3mL) PF, MDV 01/25/2021,01/02/2021 Influenza A [...] Comments Blood Pressure 146/81 11/21/2023 2:37 PM APPLICATION SECURITY CONSULTANT Pulse 88 11/21/2023 2:37 PM APPLICATION SECURITY CONSULTANT Temperature 36.4 ??C (97.6 ??F) 11/21/2023 2:37 PM CS T Respiratory Rate 20 11/21/2023 2:37 PM APPLICATION SECURITY CONSULTANT Oxygen Saturation 95% 11/21/2023 2:37 PM APPLICATION SECURITY CONSULTANT Inhaled Oxygen Concentration - - Weight 99.8 kg (220 lb) 08/18/2023 11:40 AM CDT Height 180.3 cm (5' 11) 08/18/2023 11:40 AM CDT Body Mass Index 30.68 08/18/2023 11:40 AM CDT Plan of Treatment Upcoming Encounters Date Type Department Care Team (Late st Contact Info) Description 12/19/2023 1:50 PM APPLICATION SECURITY CONSULTANT Office Visit [facility] [address] [place] [address] Franklin Squires MD [address] [place] [address] Health Maintenance Due Date Last Done Comments [...] Associated Diagnosis Comments HOME MONITOR AC Routine 12/03/2023 12:00 AM APPLICATION SECURITY CONSULTANT HOME MONITOR AC Routine 11/26/2023 12:00 AM APPLICATION SECURITY CONSULTANT SCAN CORRESP-LABORATORY RESULTS 11/21/2023 3:07 PM APPLICATION SECURITY CONSULTANT HEMOGLOBIN A1C STAT 11/21/2023 1:04 PM APPLICATION SECURITY CONSULTANT 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) PROTIME-INR STAT 11/21/2023 1:04 PM APPLICATION SECURITY CONSULTANT 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) Anticoagulation monitoring, INR range 2-3 HOME MONITOR AC Routine 11/18/2023 12:00 AM APPLICATION SECURITY CONSULTANT HOME MONITOR AC Routine 11/08/2023 12:00 AM APPLICATION SECURITY CONSULTANT SCAN-LABORATORY REPORT 11/06/2023 12:00 AM APPLICATION SECURITY CONSULTANT INR,POCT Routine 11/05/2023 INR,POCT Routine 11/04/2023 INR,POCT Routine 11/03/2023 INR,POCT Routine 11/02/2023 INR,POCT Routine 11/01/2023 INR,POCT Routine 10/31/2023 INR,POCT Routine 10/30/2023 SCAN-OPERATIVE/PROCED URE REPORT 10/30/2023 12:00 AM APPLICATION SECURITY CONSULTANT INR,POCT Routine 10/29/2023 HOME MONITOR AC Routine 10/29/2023 12:00 AM APPLICATION SECURITY CONSULTANT XR CHEST 1 VIEW PORTABLE STAT 10/25/2023 5:07 PM APPLICATION SECURITY CONSULTANT HOME MONITOR AC Routine 10/25/2023 12:00 AM APPLICATION SECURITY CONSULTANT SCAN-OPERATIVE/PROCED URE REPORT 10/25/2023 12:00 AM APPLICATION SECURITY CONSULTANT SCAN-CT INTERPRETATION 10/23/2023 12:00 AM APPLICATION SECURITY CONSULTANT HOME MONITOR AC Routine 10/18/2023 12:00 AM APPLICATION SECURITY CONSULTANT HOME MONITOR AC Routine 09/28/2023 12:00 AM APPLICATION SECURITY CONSULTANT HOME MONITOR AC Routine 09/20/2023 12:00 AM APPLICATION SECURITY CONSULTANT from Last 3 Months Results * (ABNORMAL) HOME MONITOR AC (12/03/2023 12:00 AM APPLICATION SECURITY CONSULTANT) Only the most recent of9 resultswithin the time period is included. PATIENT REPORTED HOME INR 1.9(L) 2.00 - 3.00 [facility] 12/03/2023 Franklin Squires MD OTHER [facility] [address] [place] [address] * SCAN CORRESP-LABORATORY RESULTS (11/21/2023 3:07 PM APPLICATION SECURITY CONSULTANT) Scanner OTHER * (ABNORMAL) PROTIME-INR (11/21/2023 1:04 PM APPLICATION SECURITY CONSULTANT) INR 2.6(H) <1.3 11/21/2023 3:41 PM APPLICATION SECURITY CONSULTANT [facility] PROTIME 28.2(H) 10.3 - 12.3 sec 11/21/2023 3:41 PM APPLICATION SECURITY CONSULTANT [facility] Blood BLOOD SPECIMEN / Unknown Venipuncture / Unknown 11/21/2023 1:04 PM APPLICATION SECURITY CONSULTANT 11/21/2023 1:05 PM APPLICATION SECURITY CONSULTANT Narrative [facility] - 11/21/2023 3:41 PM APPLICATION SECURITY CONSULTANT ?Therapeutic Range 2.0-3.0 for most anticoagulated patients [...] Franklin Squires MD HEMATOLOGY Performing Organization Address [facility] Co de Phone Number [facility] [address] [place] [address] * HEMOGLOBIN A1C MONITORING (POCT) (11/21/2023 1:04 PM APPLICATION SECURITY CONSULTANT) [facility] HEMOGLOBIN A1C MONITORING (POCT) 6.1 <=6.4 % 11/21/2023 1:12 PM APPLICATION SECURITY CONSULTANT [facility] Blood BLOOD SPECIMEN / Unknown Venipuncture / Unknown 11/21/2023 1:04 PM APPLICATION SECURITY CONSULTANT 11/21/2023 1:05 PM APPLICATION SECURITY CONSULTANT Narrative [facility] - 11/21/2023 1:12 PM APPLICATION SECURITY CONSULTANT ? (<=6.9%) ? Indicates good control ? [...] Franklin Squires MD CHEMISTRY Performing Organization Address [facility] Co de Phone Number [facility] [address] [place] [address] * SCAN-LABORATORY REPORT (11/06/2023 12:00 AM APPLICATION SECURITY CONSULTANT) Scanner OTHER * INR,POCT (11/05/2023) Only the most recent of8 resultswithin the time period is included. INR 2.6 [facility] Blood BLOOD SPECIMEN / Unknown 11/05/2023 Patient Reported LABORATORY [address] [address] * SCAN-OPERATIVE/PROCEDURE REPORT (10/30/2023 12:00 AM APPLICATION SECURITY CONSULTANT) Scanner OTHER * XR CHEST 1 VIEW PORTABLE (10/25/2023 5:07 PM APPLICATION SECURITY CONSULTANT) Anatomical Region Laterality Modality HEART, THORAX, CHEST Digital Rad iography 10/25/2023 6:03 PM APPLICATION SECURITY CONSULTANT Impressions 10/25/2023 6:03 PM APPLICATION SECURITY CONSULTANT 1. Right PICC line is present with the tip at the cavoatrial junction. Dictated by Gordy Malik MD @ 10/25/2023 6:03:07 PM Dictated by: Gordy Malik MD @ 10/25/2023 18:03:23 (Electronically Signed) Narrative 10/25/2023 6:03 PM APPLICATION SECURITY CONSULTANT For Patients: ??As a result of the [...] * SCAN-OPERATIVE/PROCEDURE REPORT (10/25/2023 12:00 AM APPLICATION SECURITY CONSULTANT) Narrative 10/25/2023 12:00 AM APPLICATION SECURITY CONSULTANT Ordered by an unspecified provider. Other Clinical Staff OTHER * SCAN-CT INTERPRETATION (10/23/2023 12:00 AM APPLICATION SECURITY CONSULTANT) Anatomical Region Laterality Modality Other Scanner OTHER [...] 12 months since positive culture): resides in acute/prison care, receiving hemodialysis, has chronic open wounds/skin damage, has long-term percutaneous indwelling medical devices Exclusions for nares collection (if <12 months since positive culture) include all of the previous exclusions plus patients on antibiotics 7 days prior to collection 03/13/2018 2023 Advance Directives Documents on File Type Date Recorded Patient Manager Emergency Expl anation Healthcare Directive 05/09/2023 023 Healthcare [...] Status Discussion: Per Existing Order Care Teams Die Cast Operator Relationship Specialty Start Date End Date Franklin Squires MD [address] [place] [address] PCP - General Family Practice 10/18/15 Zelalem Cohen MD Physical Therapist 03/13/12 May Randle MD Physical Medicine and Rehabilitation 03/13/12 Luana, FAUSTINO Krueger [address] [place] [address] Cook Morning 05/03/17 Diane Charles MD 100 [facility] [place] [address] Surgery - Urology 01/17/23 Julia Ware, RN [facility] [address] Registered Nurse 07/17/23
--- OUTSIDE RECORDS SUMMARY | 2023-12-09 12:47 | XMS_ITS | Encounter Summary ---
Author Name Unknown Organization [facility] Address [address] [place] [address] Care Team Providers Care Vision Care Associate Name Role Phone Franklin Squires MD Primary Care Provider Encounter Details Date Type Department Care Team Description 08/22/2014 Outside Hospital External to [facility] HOSP-D/C SUMMARY Social History Tobacco [...] on filedocumented in this encounter Care Teams Vision Care Associate Relationship Specialty Start Date End Date Franklin Squires MD 100 [facility] [place] [address] PCP - General Family Practice 03/08/16 documented as of this encounter
--- OUTSIDE RECORDS SUMMARY | 2023-12-09 12:47 | XMS_ITS ---
Author Name Unknown Organization [facility] Address [address], [place] [address] Care Team Providers Care Code And Test Clerk Name Role Phone Franklin Squires MD [...] 0 06/10/2014 History of anticoagulant therapy 02/17/2014 detention current use of anticoagulant therapy 0 02/17/2014 [...] treatments are documented for this patient in [facility]. Treatments may have been administered in another system. Resolved Problems Problem Noted Date Diagnosed Date Resolved Date Gait abnormality 01/17/2012 02/09/2015 Back pain 01/17/2012 02/09/2015 Paraplegia 04/04/2011 02/09/2015 Osteoporosis 03/06/2011 02/09/2015 Urinary tract infection 12/24/200603/11
--- OUTSIDE RECORDS SUMMARY | 2023-12-09 12:47 | XMS_ITS | Encounter Summary ---
Author Name Unknown Organization [facility] Address [address] [address] Care Team Providers Care Ergonomist Name Role Phone Franklin Squires MD Primary Care Provider Encounter Details Date Type Department Care Team Description 06/07/2015 Correspondence [facility] Radiology [address] [place] [address] Radiology, Provider MRI SAFETY SHEET AND COMPATIBILITY [...] on filedocumented in this encounter Care Teams Ergonomist Relationship Specialty Start Date End Date Franklin Squires MD [address] [facility] [place] [address] PCP - General Family Practice 03/08/16 documented as of this encounter
--- OUTSIDE RECORDS SUMMARY | 2023-12-09 12:47 | XMS_ITS | Encounter Summary ---
Author Name Unknown Organization [facility] Address [address], [place] [address] Care Team Providers Care Inspector Circuitry Negative Name Role Phone Franklin Squires MD Primary Care Provider Encounter Details Date Type Department Care Team Description 12/11/2017 Correspondence [facility] Physical Medicine [address] [facility] [place], [place] [id number] May Randle MD [address] [place] [address] [employer] Social History Tobacco Use [...] filedocumented in this encounter Care Teams Inspector Circuitry Negative Relationship Specialty Start Date End Date Franklin Squires MD 100 [facility] [place] [address] PCP - General Family Practice 03/08/16 documented as of this encounter
--- OUTSIDE RECORDS SUMMARY | 2023-12-09 12:47 | XMS_ITS | Encounter Summary ---
Author Name Unknown Organization [facility] Address [address], [place] [address] Care Team Providers Care Track Layer Head Name Role Phone Franklin Squires MD Primary Care Provider Encounter Details Date Type Department Care Team Description 09/07/2014 Correspondence [facility] Radiology [address] [place] [address] Radiology, Provider MRI SAFETY SHEET AND COMPATIBILITY [...] on filedocumented in this encounter Care Teams Track Layer Head Relationship Specialty Start Date End Date Franklin Squires MD 100 [facility] [place] [address] PCP - General Family Practice 03/08/16 documented as of this encounter
--- OUTSIDE RECORDS SUMMARY | 2023-12-09 12:47 | XMS_ITS | Encounter Summary ---
Author Name Unknown Organization [facility] Address [address] [address] Care Team Providers Care Sewing Pattern Layout Technician Name Role Phone Franklin Squires MD [...] on filedocumented in this encounter Care Teams Sewing Pattern Layout Technician Relationship Specialty Start Date End Date Franklin Squires MD 100 [facility] [place] [address] PCP - General Family Practice 03/08/16 documented as of this encounter
--- OUTSIDE RECORDS SUMMARY | 2023-12-09 12:47 | XMS_ITS | Encounter Summary ---
Author Name Unknown Organization [facility] Address [address] [address] Care Team Providers Care Building Surveyor Name Role Phone Franklin Squires MD Primary Care Provider [phone] Encounter Details Date Type Department Care Team Description 07/08/2015 Correspondence [facility] Physical Therapy [address] [place] [address] Trudi Raymundo, PT [address] [place] [address] ADDENDUM FOR LETTER OF MEDICAL NECESSITY Social [...] filedocumented in this encounter Care Teams Building Surveyor Relationship Specialty Start Date End Date Franklin Squires MD [address] [facility] [place] [address] PCP - General Family Practice 03/08/16 documented as of this encounter
--- OUTSIDE RECORDS SUMMARY | 2023-12-09 12:47 | XMS_ITS | Encounter Summary ---
Author Name Unknown Organization [facility] Address [address] [place] [address] Care Team Providers Care Driver/Refuse Collector Name Role Phone Franklin Squires MD Primary Care Provider [phone] Encounter Details Date Type Department Care Team [...] on filedocumented in this encounter Care Teams Driver/Refuse Collector Relationship Specialty Start Date End Date Franklin Squires MD [address] [place], [place] [address] [address] PCP - General Family Practice 03/08/16 documented as of this encounter
--- OUTSIDE RECORDS SUMMARY | 2023-12-09 12:47 | XMS_ITS | Encounter Summary ---
Author Name Unknown Organization [facility] Address [address], [place] [address] Care Team Providers Care Manager Forensic Name Role Phone Franklin Squires MD Primary Care Provider Encounter Details Date Type Department Care Team Description 11/10/2014 Correspondence [facility] Physical Therapy [address] [place] [address] Trudi Raymundo, PT [address] [place] [address] LETTER OF MEDICAL NECESSITY Social History Tobacco [...] filedocumented in this encounter Care Teams Manager Forensic Relationship Specialty Start Date End Date Franklin Squires MD [address] [facility] [address] PCP - General Family Practice 03/08/16 documented as of this encounter
--- OUTSIDE RECORDS SUMMARY | 2023-12-09 12:47 | XMS_ITS | Clinical Summary ---
Author Name [facility] Organization [facility] Address [address] [place] [address] Care Team Providers Care Technical Lead Name Role Phone Franklin Squires MD Primary Care Provider [phone] Source Comments You are receiving this document as you are listed as the primary care provider,follow-up provider, or the patient has been referred to you for consultation.This is in compliance with the Medicare and[facility] Hospital[facility] EHR Incentive Program,which states Providers who transition their patient to another setting of careor provider of care or refers their patient to another provider of care shouldprovide summary care record for each transition of care or referral. [facility] Allerg[facility] Active Allergy Reactions Criticality Noted Date [...] 0 06/10/2014 History of anticoagulant therapy 02/17/2014 longterm current use of anticoagulant therapy 0 02/17/2014 [...] Comments Blood Pressure 120/63 01/18/2022 12:59 PM PLEATING MACHINE OPERATOR Pulse 87 01/18/2022 12:59 PM PLEATING MACHINE OPERATOR Temperature 36.3 ??C (97.4 ??F) 01/18/2022 [...] this topic Medical Devices Implanted Type Area Artist'S Model Device Identifier Shelf Expiration Date Model / Serial / Lot [id number] 4ml Tisseel Explanted:([place] ntity not on file) BIOLOGIC N/A: NECK Lynne Fenwall 09/10/2011 [id number] / [id number] / [id number] Description:posterior Cath Intrathecal Indura - [id number] Implanted:Qty: 1 on 05/09/2010 at [facility] DEVICE Right: LUMBAR SPINE Club Emprende 01/18/2012 8709 / N/A / [id number] Cath Intrathecal Indura - [id number] Implanted:Qty: 1 on 05/29/2010 at [facility] DEVICE Reeher Carlos 8709 / / Scr Indira Conic 7.3x80 - [id number] Implanted:Qty: 1 on 03/13/2011 at [facility] DEVICE Right: FEMUR DISTAL Vpon [place] 02.207.28 0 / NONE / NONE Plt Lcp Cndl Rt 4.5x170 6h - [id number] Implanted:Qty: 1 on 03/13/2011 at [facility] DEVICE Right: FEMUR DISTAL Vpon [place] 222.656 / NONE / NONE Description:6 hole 170mm rig ht 4.5mm lcp condylar plate Scr Didier Ss Sftp 4.5x40 - [id number] Implanted:Qty: 1 on 03/13/2011 at [facility] DEVICE Left: FEMUR DISTAL Vpon [place] 214.840 / NONE / NONE Scr Didier Ss Sftp 4.5x50 - [id number] Implanted:Qty: 1 on 03/13/2011 at [facility] DEVICE Left: FEMUR DISTAL Synthes [place] 214.850 / NONE / NONE Scr Indira Lk 5.0x80 - [id number] Implanted:Qty: 2 on 03/13/2011 at [facility] DEVICE Left: FEMUR DISTAL [employer] [place] 02.205.08 0 / NONE / NONE Scr Indira Lk 5.0x85 - [id number] Implanted:Qty: 2 on 03/13/2011 at [facility] DEVICE Left: FEMUR DISTAL [employer] [place] 02.205.08 5 / NONE / NONE Scr Lk Sftp T25 5.0x50 - [id number] Implanted:Qty: 1 on 03/13/2011 at [facility] DEVICE Left: FEMUR DISTAL [employer] [place] 212.219 / NONE / NONE Scr Lk Sftp T25 5.0x60 - [id number] Implanted:Qty: 1 on 03/13/2011 at [facility] DEVICE Left: FEMUR DISTAL [employer] [place] 212.221 / NONE / NONE Scr Indira Conic 7.3x85 - [id number] Implanted:Qty: 1 on 03/13/2011 at [facility] DEVICE Left: FEMUR DISTAL [employer]ynthes [place] 02.207.28 5 / NONE / NONE Plt Lcp Cndl Lt 4.5x170 6h - [id number] Implanted:Qty: 1 on 03/13/2011 at [facility] DEVICE Left: FEMUR DISTAL [employer] [place] 222.657 / NONE / NONE Description:6 hole 170mmleng th left 4.5mm lcp condylar plate. Scr Didier Sftp 3.5x60 F-Thrd - [id number] Implanted:Qty: 1 on 03/13/2011 at [facility] DEVICE Left: TIBIA PROXIMAL [employer]ynthes [place] 204.860 / NONE / NONE Scr Star Lk Sftp 3.5x32 - [id number] Implanted:Qty: 1 on 03/13/2011 at [facility] DEVICE Left: TIBIA PROXIMAL [employer] [place] 212.112 / NONE / NONE Scr Star Lk Sftp 3.5x55 - [id number] Implanted:Qty: 2 on 03/13/2011 at [facility] DEVICE Left: TIBIA PROXIMAL [employer] [place] 212.123 / NONE / NONE Scr Star Lk Sftp 3.5x60 - [id number] Implanted:Qty: 2 on 03/13/2011 at [facility] DEVICE Left: TIBIA PROXIMAL [employer] [place] 212.124 / NONE / NONE Plt Lcp M/Prox Lt 3.5x94 4h - [id number] Implanted:Qty: 1 on 03/13/2011 at [facility] DEVICE Left: TIBIA PROXIMAL [employer] [place] 239.955 / NONE / NONE Scr Didier Ss Sftp 4.5x36 - [id number] Implanted:Qty: 1 on 03/13/2011 at [facility] DEVICE Right: FEMUR DISTAL [employer] [place] 214.836 / NONE / NONE Scr Didier Ss Sftp 4.5x44 - [id number] Implanted:Qty: 1 on 03/13/2011 at [facility] DEVICE Right: FEMUR DISTAL [employer] [place] 214.844 / NONE / NONE Scr Indira Lk 5.0x75 - [id number] Implanted:Qty: 1 on 03/13/2011 at [facility] DEVICE Right: FEMUR DISTAL [employer] [place] 02.205.07 5 / NONE / NONE Scr Indira Lk 5.0x85 - [id number] Implanted:Qty: 2 on 03/13/2011 at [facility] DEVICE Right: FEMUR DISTAL [employer]ynthe[employer] [place] 02.205.08 5 / NONE / NONE Scr Lk Sftp T25 5.0x44 - [id number] Implanted:Qty: 1 on 03/13/2011 at [facility] DEVICE Right: FEMUR DISTAL [employer] [place] 212.216 / NONE / NONE Scr Lk Sftp T25 5.0x65 - [id number] Implanted:Qty: 1 on 03/13/2011 at [facility] DEVICE Right: FEMUR DISTAL [employer]ynthe[employer] [place] 212.222 / NONE / NONE Plt Lp T Ti Str 4h - [id number] Implanted:Qty: 3 on 07/28/2014 by Cooper Shelley MD at [facility] DEVICE Right: SKULL Synthes [place] 421.504 / / Scr Matrix Sfdr 4mm - [id number] Implanted:Qty: 6 on 07/28/2014 by Cooper Shelley MD at [facility] DEVICE Right: SKULL [employer]ynthes [place] 04.503.10 4.01 / / Lead Linear 3-4 8 Contact 50cm - [id number] Implanted:Qty: 1 on 03/08/2016 by Zelalem Cohen DO at [facility] DEVICE N/A: OTHER-SEE DESCRIPTION [facility] 09/10/2017 [id number] 2500 / / [id number] Description:LUMBAR Lead Linear 3-4 8 Contact 50cm - [id number] Implanted:Qty: 1 on 03/08/2016 by Zelalem Cohen DO at [facility] DEVICE N/A: OTHER-SEE DESCRIPTION [facility] 09/10/2017 [id number] 2500 / / [id number] Description:LUMBAR Lead Linear 3-4 8 Contact 50cm - [id number] Implanted:Qty: 1 on 03/08/2016 by Zelalem Cohen DO at [facility] DEVICE N/A: OTHER-SEE DESCRIPTION [facility] 09/10/2017 [id number] 2500 / / [id number] Description:LUMBAR Lead Linear 3-4 8 Contact 50cm - [id number] Implanted:Qty: 1 on 03/08/2016 by Zelalem Cohen DO at [facility] DEVICE N/A: OTHER-SEE DESCRIPTION [facility] 09/10/2017 [id number] 2500 / / [id number] Description:LUMBAR Lead Linear 3-4 8 Contact 50cm - [id number] Implanted:Qty: 1 on 05/24/2016 by Zelalem Cohen DO at [facility] DEVICE N/A: SPINE LUMBAR POSTERIOR [facility] 01/31/2018 [id number] 2500 / [id number] / Lead Linear 3-4 8 Contact 50cm - [id number] Implanted:Qty: 1 on 05/24/2016 by Zelalem Cohen DO at [facility] DEVICE N/A: SPINE LUMBAR POSTERIOR [facility] 04/26/2018 [id number] 2500 / [id number] / Lead Linear 3-4 8 Contact 50cm - [id number] Implanted:Qty: 1 on 05/24/2016 by Zelalem Cohen DO at [facility] DEVICE N/A: SPINE LUMBAR POSTERIOR [facility] 04/26/2018 [id number] 2500 / [id number] / Lead Linear 3-4 8 Contact 50cm - [id number] Implanted:Qty: 1 on 05/24/2016 by Zelalem Cohen DO at [facility] DEVICE N/A: SPINE LUMBAR POSTERIOR [facility] 04/26/2018 [id number] 2500 / [id number] / Generator Pulse Spectra - [id number] Implanted:Qty: 1 on 05/24/2016 by Zelalem Cohen DO at [facility] DEVICE N/A: SPINE LUMBAR POSTERIOR [facility] 05/08/2018 [id number] / [id number] / [id number] [place] [employer] - [id number] Implanted:Qty: 1 on 05/24/2016 by Zelalem Cohen DO at [facility] DEVICE N/A: SPINE LUMBAR POSTERIOR [facility] 05/02/2018 [id number] 60 / / [id number] Teri Tong - [id number] Implanted:Qty: 1 on 05/24/2016 by Zelalem Cohen DO at [facility] DEVICE N/A: SPINE LUMBAR POSTERIOR [facility] 02/28/2018 [id number] 60 / / [id number] Advance Directives Latest Code Status on File [...] 5:44 PM 07/28/2014 6:50 PM Care Teams Technical Lead Relationship Specialty Start Date End Date Franklin Squires MD 100 [facility] [place] [address] PCP - General Family Practice 03/08/16
--- OUTSIDE RECORDS SUMMARY | 2023-12-09 12:47 | XMS_ITS | Encounter Summary ---
Author Name Unknown Organization [facility] Address [address] [place] [address] Care Team Providers Care Buying Intern Name Role Phone Franklin Squires MD Primary Care Provider [phone] Encounter Details Date Type Department Care Team [...] on filedocumented in this encounter Care Teams Buying Intern Relationship Specialty Start Date End Date Franklin Squires MD [address] [place], [place] [address] [address] PCP - General Family Practice 03/08/16 documented as of this encounter
--- OUTSIDE RECORDS SUMMARY | 2023-12-09 12:47 | XMS_ITS | Encounter Summary ---
Author Name Unknown Organization [facility] Address [address] [place] [address] Care Team Providers Care Store Receiving Specialist Name Role Phone Franklin Squires MD [...] filedocumented in this encounter Care Teams Store Receiving Specialist Relationship Specialty Start Date End Date Franklin Squires MD [address] [place], [place] [address] [address] PCP - General Family Practice 03/08/16 documented as of this encounter
--- OUTSIDE RECORDS SUMMARY | 2023-12-09 12:47 | XMS_ITS | Encounter Summary ---
Author Name Unknown Organization [facility] Address [address], [place] [address] Care Team Providers Care Channel Process Plant Operator Name Role Phone Franklin Squires MD Primary Care Provider Encounter Details Date Type Department Care Team Description 12/14/2014 [facility] Physical Medicine 401 [facility] [place] [address] May Randle MD [address] [place] [address] DETAILED PRODUCT DESCRIPTION Social History Tobacco Use [...] on filedocumented in this encounter Care Teams Channel Process Plant Operator Relationship Specialty Start Date End Date Franklin Squires MD 100 [facility] [place] [address] PCP - General Family Practice 03/08/16 documented as of this encounter
--- OUTSIDE RECORDS SUMMARY | 2023-12-09 12:48 | XMS_ITS | Encounter Summary ---
Author Name Unknown Organization [facility] Address [address] [place] [address] Care Team Providers Care Analytical Research Chemist Name Role Phone Franklin Squires MD Primary Care Provider [phone] Encounter Details Date Type Department Care Team Description 10/26/2013 Correspondence [facility] Physical Therapy [address] [place] [address] Trudi Raymundo, PT [address] [place], [place] [id number] LETTER OF MEDICAL NECESSITY Social History Tobacco [...] Raymundo, PT - 10/26/2013 12:00 AM CST ER OUT documented in this encounter Plan of Treatment Not on file documented as of this encounter Visit Diagnoses Not on filedocumented in this encounter Care Teams Analytical Research Chemist Relationship Specialty Start Date End Date Franklin Squires MD [address] [facility] [place] [address] PCP - General Family Practice 03/08/16 documented as of this encounter
--- OUTSIDE RECORDS SUMMARY | 2023-12-09 12:48 | XMS_ITS | Encounter Summary ---
Author Name Unknown Organization [facility] Address [address] [address] Care Team Providers Care Manager Center Name Role Phone Franklin Squires MD Primary Care Provider [phone] Encounter Details Date Type Department Care Team Description 11/13/2012 Correspondence [facility] Radiology [address] [place] [address] Radiology, Provider MRI SAFETY SHEET AND COMPATIBILITY [...] RADIOLOGY, PROVIDER - 11/13/2012 12:00 AM CST LIFE REFUGE SPECIALIST documented in this encounter Plan of Treatment Not on file documented as of this encounter Visit Diagnoses Not on filedocumented in this encounter Care Teams Manager Center Relationship Specialty Start Date End Date Franklin Squires MD 100 [facility] [place] [address] PCP - General Family Practice 03/08/16 documented as of this encounter
--- OUTSIDE RECORDS SUMMARY | 2023-12-09 12:48 | XMS_ITS | Encounter Summary ---
Author Name Unknown Organization [facility] Address [address] [address] Care Team Providers Care Operations Manager/Coordinator Name Role Phone Franklin Squires MD Primary Care Provider [phone] Encounter Details Date Type Department Care Team Description 04/24/2012 Correspondence [facility] Radiology [address] [place] [address] Radiology, Provider MRI SAFETY SHEET AND COMPATIBILITY [...] on filedocumented in this encounter Care Teams Operations Manager/Coordinator Relationship Specialty Start Date End Date Franklin Squires MD 100 [facility] [place] [address] PCP - General Family Practice 03/08/16 documented as of this encounter
--- OUTSIDE RECORDS SUMMARY | 2023-12-09 12:48 | XMS_ITS | Encounter Summary ---
Author Name Unknown Organization [facility] Address [address], [place] [address] Care Team Providers Care Teacher Of The Sight Impaired Name Role Phone Franklin Squires MD Primary Care Provider [phone] Encounter Details Date Type Department Care Team Description 05/04/2014 [facility] 401 Physical Medicine 401 [facility]. [place], [place] [phone] May Randle MD [address] [place] [address] LETTER OF MEDICAL NECESSITY FOR A WHEELCHAIR [...] on filedocumented in this encounter Care Teams Teacher Of The Sight Impaired Relationship Specialty Start Date End Date Franklin Squires MD 100 [facility] [address] PCP - General Family Practice 03/08/16 documented as of this encounter
--- OUTSIDE RECORDS SUMMARY | 2023-12-09 12:48 | XMS_ITS | Encounter Summary ---
Author Name Unknown Organization [facility] Address [address] [place] [address] Care Team Providers Care Glassware Maker Demonstrator Name Role Phone Franklin Squires MD Primary Care Provider Encounter Details Date Type Department Care Team Description 06/04/2014 [facility] 401 Interventional Pain Management 401 [facility] [place] [address] Zelalem Cohen, DO [address] [place] [address] MEDICAID PT INFORMATION EMPI RECOVERY Social History [...] on filedocumented in this encounter Care Teams Glassware Maker Demonstrator Relationship Specialty Start Date End Date Franklin Squires MD 100 [facility] [place] [address] PCP - General Family Practice 03/08/16 documented as of this encounter
--- OUTSIDE RECORDS SUMMARY | 2023-12-09 12:48 | XMS_ITS | Encounter Summary ---
Author Name Unknown Organization [facility] Address [address] [place] [address] Care Team Providers Care Bobbin Dumper Name Role Phone Franklin Squires MD Primary Care Provider [phone] Encounter Details Date Type Department Care Team Description 07/23/2013 [facility] 401 Interventional Pain Management 401 [place] [address] Zelalem Cohen DO [address] [place] [address] EXPRESS SCRIPT Social History Tobacco Use Types [...] Cohen MD - 07/23/2013 12:00 AM CDT AL PHOTOGRAPHER documented in this encounter Plan of Treatment Not on file documented as of this encounter Visit Diagnoses Not on filedocumented in this encounter Care Teams Bobbin Dumper Relationship Specialty Start Date End Date Franklin Squires MD [address] [place] [address] PCP - General Family Practice 03/08/16 documented as of this encounter
--- OUTSIDE RECORDS SUMMARY | 2023-12-09 12:48 | XMS_ITS | Encounter Summary ---
Author Name Unknown Organization [facility] Address [address] [address] Care Team Providers Care Air Support Operations Operator Name Role Phone Franklin Squires MD Primary Care Provider Encounter Details Date Type Department Care Team Description 04/20/[address] [facility] Radiology [address] [place] [address] Radiology, Provider MRI SAFETY SHEET AND COMPATIBILITY [...] filedocumented in this encounter Care Teams Air Support Operations Operator Relationship Specialty Start Date End Date Franklin Squires MD 100 [facility] [place] [address] PCP - General Family Practice 03/08/16 documented as of this encounter
--- OUTSIDE RECORDS SUMMARY | 2023-12-09 12:48 | XMS_ITS | Encounter Summary ---
Author Name Unknown Organization [facility] Address [address], [place] [address] Care Team Providers Care Retail Administrative Assistant Name Role Phone Franklin Squires MD Primary Care Provider [phone] Encounter Details Date Type Department Care Team Description 12/16/2013 Correspondence [facility] Radiology [address] [place] [address] Radiology, Provider MRI SAFETY SHEET AND COMPATIBILITY [...] Radiology, Provider - 12/16/2013 12:00 AM CST LAB RADIOLOGY TECHNICIAN documented in this encounter Plan of Treatment Not on file documented as of this encounter Visit Diagnoses Not on filedocumented in this encounter Care Teams Retail Administrative Assistant Relationship Specialty Start Date End Date Franklin Squires MD 100 [facility] [place] [address] PCP - General Family Practice 03/08/16 documented as of this encounter
--- OUTSIDE RECORDS SUMMARY | 2023-12-09 12:48 | XMS_ITS | Encounter Summary ---
Author Name Unknown Organization [facility] Address [address] [place] [address] Care Team Providers Care Assistant Men'S Soccer Coach Name Role Phone Franklin Squires MD Primary Care Provider [phone] Encounter Details Date Type Department Care Team [...] on filedocumented in this encounter Care Teams Assistant Men'S Soccer Coach Relationship Specialty Start Date End Date Franklin Squires MD 100 [facility] [place] [address] PCP - General Family Practice 03/08/16 documented as of this encounter
--- OUTSIDE RECORDS SUMMARY | 2023-12-09 12:48 | XMS_ITS | Encounter Summary ---
Author Name Unknown Organization [facility] Address [address], [place] [address] Care Team Providers Care Gas Maker Helper Name Role Phone Franklin Squires MD Primary Care Provider Encounter Details Date Type Department Care Team Description 06/11/2014 [facility] 401 Physical Medicine 401 [facility] [place] [address] May Randle MD [address] [place] [address] [facility] Social History Tobacco Use Types Packs/Day [...] filedocumented in this encounter Care Teams Gas Maker Helper Relationship Specialty Start Date End Date Franklin Squires MD 100 [facility] [place] [address] PCP - General Family Practice 03/08/16 documented as of this encounter
--- OUTSIDE RECORDS SUMMARY | 2023-12-09 12:48 | XMS_ITS | Encounter Summary ---
Author Name Unknown Organization [facility] Address [address] [place] [address] Care Team Providers Care Emergency Medical Technician/Driver Name Role Phone Franklin Squires MD Primary Care Provider [phone] Encounter Details Date Type Department Care Team Description 01/08/2013 Scanned History External to Transferred Record, Provider [facility] Social History Tobacco Use Types [...] on filedocumented in this encounter Care Teams Emergency Medical Technician/Driver Relationship Specialty Start Date End Date Franklin Squires MD 100 [facility] [address] PCP - General Family Practice 03/08/16 documented as of this encounter
--- OUTSIDE RECORDS SUMMARY | 2023-12-09 12:48 | XMS_ITS | Encounter Summary ---
Author Name Unknown Organization [facility] Address [address] [address] Care Team Providers Care Sugar Cane Planter Machine Operator Name Role Phone Franklin Squires MD Primary Care Provider [phone] Encounter Details Date Type Department Care Team Description 02/05/2014 Correspondence [facility] Physical Therapy [address] [place] [address] Trudi Raymundo, PT [address] [place] [address] LETTER OF MEDICAL NECESSITY FOR A WHEELCHAIR [...] on filedocumented in this encounter Care Teams Sugar Cane Planter Machine Operator Relationship Specialty Start Date End Date Franklin Squires MD 100 [facility] [place] [address] PCP - General Family Practice 03/08/16 documented as of this encounter
--- OUTSIDE RECORDS SUMMARY | 2023-12-09 12:48 | XMS_ITS | Encounter Summary ---
Author Name Unknown Organization [facility] Address [address] [place] [address] Care Team Providers Care Lithographic Etcher Name Role Phone Franklin Squires MD Primary Care Provider Encounter Details Date Type Department Care Team Description 09/17/2013 Correspondence External to External, [place] [address] EMPOWERMENT RULES Social History Tobacco Use Types [...] External, Provider - 09/17/2013 12:00 AM CST ING PROCESS SPECIALIST documented in this encounter Plan of Treatment Not on file documented as of this encounter Visit Diagnoses Not on filedocumented in this encounter Care Teams Lithographic Etcher Relationship Specialty Start Date End Date Franklin Squires MD 100 [facility] [place] [address] PCP - General Family Practice 03/08/16 documented as of this encounter
--- OUTSIDE RECORDS SUMMARY | 2023-12-09 12:48 | XMS_ITS | Encounter Summary ---
Author Name Unknown Organization [facility] Address [address] [address] Care Team Providers Care Sales Department Clerk Name Role Phone Franklin Squires MD Primary Care Provider Encounter Details Date Type Department Care Team Description 03/11/2014 [facility] 401 Interventional Pain Management 401 [facility] [place] [address] Zelalem Cohen, DO [address] [place] [address] EMPI Social History Tobacco Use Types Packs/Day [...] on filedocumented in this encounter Care Teams Sales Department Clerk Relationship Specialty Start Date End Date Franklin Squires MD 100 [facility] [place] [address] PCP - General Family Practice 03/08/16 documented as of this encounter
== END 2023-12-09 12:41 | disposition home or self-care (01) ==
LOC: WOUND 12:40
PROVIDERS: PCP Family Medicine; Visit Provider Nurse Practitioner Family
DX: E11.622 Type 2 diabetes mellitus with other skin ulcer (principal); L89.324 Pressure ulcer of left buttock, stage 4; G82.50 Quadriplegia, unspecified
CPT/HCPCS: 11042

== ENCOUNTER 2023-12-16 12:39 | Outpatient (CLI) | payer MEDICARE, OTHER, SELFPAY ==
--- OUTSIDE RECORDS SUMMARY | 2023-12-16 12:41 | XMS_ITS | Continuity of Care Document ---
Author Name [facility] Organization [facility] Care Team Providers Care Swing Tender Name Role Phone [facility] Unavailable Unavailable Problems Combined list of problems from 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 It does not include entries that were removed or entered in error. Problem Status Onset Date Problem Type Date of Resolution Comments Source Abnormal liver function Active Condition [facility] Anemia ([facility] 561646007) Active Condition [facility] Anxiety ([facility] 51994938) Active Condition [facility] Autonomic dysreflexia Active Condition [facility] Chronic Pain Syndrome ([facility] 114216799) Active Condition [facility] Colostomy present Active Condition [facility] Constipation ([facility] 55849536) Active Condition [facility] Continuous opioid dependence Active Condition [facility] COPD - Chronic Obstructive Pulmonary Disease ([facility] 59652572) Active Condition [facility] Dementia Active Condition [facility] Depression ([facility] 02956360) Active Condition [facility] Diabetes Mellitus Type 2 ([facility] 92525344) Active Condition [facility] Ependymoma of spinal cord Active Condition [facility] Hearing Loss ([facility] 80382100) Active Condition [facility] History of Deep Vein Thrombosis ([facility] 020893818) Active Condition [facility] History of pressure injury Active Condition [facility] HTN - Hypertension ([facility] 01196694) Active Condition [facility] Hyperlipidemia ([facility] 80045495) Active Condition [facility] Hyponatremia Active Condition [facility] Long-term current use of anticoagulant Active Condition [facility] Neurogenic Bladder ([facility] 310544772) Active Condition [facility] Neurogenic bowel Active Condition [facility] Osteoporosis ([facility] 74700768) Active Condition [facility] Paraplegia Active Condition [facility] Spasticity Active Condition [facility] Suprapubic urinary catheter in situ Active Condition [facility] Supraventricular tachycardia Active Condition [facility] Tinnitus ([facility] 34160467) Active Condition [facility] Vitamin D Deficiency ([facility] 5866022) Active Condition [facility] Diagnosis: ICD-10-CM Z73.6 Limitation of activities due to disability Active Diagnosis [facility] Diagnosis: ICD-10-CM G82.20 Paraplegia, unspecified Active Diagnosis [facility] [place] Diagnosis: ICD-10-CM Z43.3 Encounter for attention to colostomy Active Diagnosis [facility] Diagnosis: ICD-10-CM Z71.3 Dietary counseling and surveillance Active Diagnosis [facility] Diagnosis: ICD-10-CM F32.A Depression, unspecified Active Diagnosis [facility] [place] Diagnosis: ICD-10-CM R26.9 Unspecified abnormalities of gait and mobility Active Diagnosis [facility] Diagnosis: ICD-10-CM R54 Age-related physical debility Active Diagnosis [facility] Diagnosis: ICD-10-CM C72.0 Malignant neoplasm of spinal [...] DAY NEEDED ORALLY ACTIVE Jagdish BARRETT 2022 [facility] AMLODIPINE BESYLATE (AMLODIPINE BESYLATE), 5 MG, TABLET, ORAL, [employer] 1000 ea. BOTTLE Active [id number] 2023 Pharmac y Data Transac tion Service Facilit y AMLODIPINE BESYLATE 2.5MG TAB TAKE TWO TABLETS BY MOUTH EVERY MORNING ORALLY ACTIVE Jagdish BARRETT 2022 [facility] AMOX TR-POTASSIU M CLAVULANATE (AMOXICILLI N/POTASSIUM CLAV), 875-125 MG, TABLET, ORAL, [employer], 20 ea. BOTTLE Active [id number] 2022 Pharmac y Data Transac tion Service Facilit y AMOXICILLIN -CLAVULANAT E POTASS (amoxicilli n/potassium clavulanate ), 875-125 MG, TABLET, ORAL, [employer],, 20 ea. BOTTLE Active [id number] 2023 Pharmac y Data Transac tion Service Facilit y ARIPIPRAZOL E (aripiprazo le), 2 MG, TABLET, ORAL, [employer], 500 ea. BOTTLE Active [id number] 2023 Pharmac y Data Transac tion Service Facilit y ARIPIPRAZOL E TAB TAKE 2MG BY MOUTH TWICE A DAY ORALLY ACTIVE Jey HANSON 2021 [facility] ATORVASTATI N CA 80MG TAB TAKE ONE-HALF TABLET BY MOUTH EVERY DAY ORALLY ACTIVE Jey HANSON 2021 [facility] BACLOFEN (baclofen), 20 MG, TABLET, ORAL, [employer] 1000 ea. BOTTLE Active [id number] 2023 Pharmac y Data Transac tion Service Facilit y BACLOFEN 20MG TAB TAKE TWO TABLETS BY MOUTH THREE TIMES A DAY ORALLY ACTIVE Jagdish BARRETT 2022 [facility] BUPROPION HCL 150MG 12HR TAB,SA TAKE ONE TABLET BY MOUTH TWICE A DAY ORALLY ACTIVE Jey HANSON 2021 [facility] CEPHALEXIN 250MG CAP TAKE 1 CAPSULE BY MOUTH EVERY DAY ORALLY ACTIVE Jey HANSON 2021 [facility] CHOLECALCIF GILSON 25MCG (1,000UNIT) TAB TAKE ONE TABLET BY MOUTH EVERY DAY ORALLY ACTIVE Jey HANSON 2021 [facility] CIPROFLOXAC IN HCL (CIPROFLOXA SHAR HCL), 750 MG, TABLET, ORAL, [employer], 50 ea. BOTTLE Active [id number] 2023 Pharmac y Data Transac tion Service Facilit y DONEPEZIL HCL (DONEPEZIL HCL), 5 MG, TABLET, ORAL, [employer] 1000 ea. BOTTLE Cancele d [id number] : 2023 Pharmac y Data Transac tion Service [...] Jey HANSON 2021 [facility] GABAPENTIN (gabapentin ), 400 MG, CAPSULE, ORAL, [employer] 500 ea. BOTTLE Active [id number] 2023 Pharmac y Data Transac tion Service Facilit y GABAPENTIN 400MG CAP TAKE 1 CAPSULE BY MOUTH THREE TIMES A DAY ORALLY ACTIVE Jey HANSON 2021 [facility] LORAZEPAM 0.5MG TAB TAKE ONE TABLET BY MOUTH THREE TIMES A DAY AND TAKE TWO TABLETS BY MOUTH AT BEDTIME ORALLY ACTIVE Jagdish BARRETT N 2022 [facility] MILK OF MAGNESIA TAKE 30ML BY MOUTH EVERY DAY NEEDED ORALLY ACTIVE Jey HANSON 2021 [facility] MULTIVITAMI NS CAP/TAB TAKE ONE TABLET BY MOUTH EVERY DAY ORALLY ACTIVE Jey HANSON 2021 [facility] NALOXONE HCL 4MG/SPRAY SOLN,SPRAY, NASAL SPRAY 1 DOSE IN ONE NOSTRIL DIRECTED PRN NOSTRI L ACTIVE Jagdish BARRETT N 2022 [employer] [facility] OXYCODONE HCL (OXYCODONE HCL), 10 MG, TABLET, ORAL, [employer] 100 ea. BOTTLE Active [id number] 2023 Pharmac y Data Transac tion Service Facilit y OXYCODONE HCL (OXYCODONE HCL), 10 MG, TABLET, ORAL, [employer] 100 ea. BOTTLE Active [id number] 2022 Pharmac y Data Transac tion Service Facilit y OXYCODONE HCL 5MG TAB TAKE TWO TABLETS BY MOUTH FOUR TIMES A DAY ORALLY ACTIVE Jagdish BARRETT 2022 [facility] POTASSIUM CHLORIDE (potassium chloride), 20 MEQ, TAB ER PRT, ORAL, [employer], 100 ea. BOTTLE Cancele d [id number] : 2022 Pharmac y Data Transac tion Service Facilit y POTASSIUM CHLORIDE 20MEQ TAB,SA (DISPERSIBL E) TAKE ONE TABLET BY MOUTH TWICE A DAY ORALLY ACTIVE Jey HANSON 2021 [facility] SANTYL (collagenas e Clostridium histolyticu m), 250 UNIT/G, OINT. (G), TOPICAL, WHITLOCK&N/UNI LUIS, 30 g TUBE Cancele d [id number] : 2023 Pharmac y Data Transac tion Service Facilit y WARFARIN SODIUM (warfarin sodium), 5 MG, TABLET, ORAL, [employer] 1000 ea. BOTTLE Cancele d [id number] : 2022 Pharmac y Data Transac tion Service Facilit y WARFARIN SODIUM (WARFARIN SODIUM), 5 MG, TABLET, ORAL, [employer], 1000 ea. BOTTLE Active [id number] 2023 Pharmac y Data Transac tion Service Facilit y WARFARIN SODIUM (WARFARIN SODIUM), 5 MG, TABLET, ORAL, [employer] [place], 1000 ea. BOTTLE Cancele d [id number] : 2022 Pharmac y Data Transac tion Service Facilit y WARFARIN SODIUM (warfarin sodium), 7.5 MG, TABLET, ORAL, [employer], 100 ea. BOTTLE Active [id number] 2023 Pharmac y Data Transac tion Service Facilit y WARFARIN TAB TAKE 5MG BY MOUTH SUN/THUR S AND TAKE 7.5MG BY MOUTH ALL OTHER DAYS ORALLY ACTIVE Jagdish BARRETT 2022 [facility] Allergies, Adverse Reactions, Alerts Combined list of allergies from Department of [facility] and [facility] facilities. It does not include entries that were removed or entered in error. Substance Category Reaction Severity Reaction type Status Date Reported Comments Source AMOXICILLIN Propensity to adverse reactions to drug (finding) Eruption active 2 [facility] METOLAZONE Propensity to adverse reactions to drug (finding) Itching active 2 [facility] MORPHINE Propensity to adverse reactions to drug (finding) Delirium active 2 [facility] PIPERACILLIN Propensity to adverse reactions to drug (finding) Eruption active 2 [facility] SULFA DRUGS Propensity to adverse reactions to drug (finding) Eruption active 2 [facility] TAZOBACTAM SODIUM Propensity to adverse reactions to drug (finding) Eruption active 2 [facility] Immunizations Combined list of available immunizations from the Department of [facility] and [facility] facilities. Immunization Series Date Given Administered By Site Reaction Lot Number CVX Code Drug Architectural Inspector Status Comments Source INFLUENZA, UNSPECIFIED FORMULATION 2021 88 complet ed [employer] [facility] TD (ADULT), 5 LF TETANUS TOXOID, PRESERVATIVE FREE, ADSORBED 2021 113 complet ed [facility] INFLUENZA, UNSPECIFIED FORMULATION 2020 88 complet ed [facility] COVID-19 (PFIZER), MRNA, LNP-S, PF, 30 MCG/0.3 ML DOSE 3 2020 208 complet ed [facility] COVID-19 (PFIZER), MRNA, LNP-S, PF, 30 MCG/0.3 ML DOSE 2 2020 208 complet ed [facility] COVID-19 (PFIZER), MRNA, LNP-S, PF, 30 MCG/0.3 ML DOSE 1 2020 208 complet ed [facility] PNEUMOCOCCAL CONJUGATE PCV 13 2014 133 complet ed [facility] ZOSTER LIVE 2012 121 complet ed [facility] PNEUMOCOCCAL POLYSACCHARID E PPV23 2010 33 complet ed [facility] TDAP 2010 115 complet ed [facility] Results Combined list of recent chemistry, [...] Feb 05, 2023 03:10 PM Reporting Lab: [facility] [address] Performing Lab: [facility] [address] [place] [facility] CYSTATIN C WITH EGFR CYSTATIN C AND GLOMERULAR FILTRATION RATE BY CYSTATIN C-BASED FORMULA PANEL - SERUM OR PLASMA 53 60 02/13 L Specimen Type: PLASMA No comment entered. Ordering Provider: ANKUSH BOWMAN Report Released Date/Time: Feb 05, 2023 03:10 PM Reporting Lab: [facility] [address] Performing Lab: [facility] [address] [place] [facility] BASIC METABOLI C PANEL+MG CREATININE [MASS/VOLU ME] IN SERUM OR PLASMA 0.7 0.7 - 1.2 02/13 Specimen Type: PLASMA No comment entered. Ordering Provider: ANKUSH BOWMAN Report Released Date/Time: Feb 05, 2023 03:10 PM Reporting Lab: [facility] [address] Performing Lab: [facility] [address] [place] [facility] BASIC METABOLI C PANEL+MG UREA NITROGEN [MASS/VOLU ME] IN SERUM OR PLASMA 15 8 - 26 02/13 Specimen Type: PLASMA No comment entered. Ordering Provider: ANKUSH BOWMAN Report Released Date/Time: Feb 05, 2023 03:10 PM Reporting Lab: [facility] [address] Performing Lab: [facility] [address] [place] [facility] BASIC METABOLI C PANEL+MG GLUCOSE [MASS/VOLU ME] IN SERUM OR PLASMA 140 70 - 100 02/13 H Specimen Type: PLASMA No comment entered. Ordering Provider: ANKUSH BOWMAN Report Released Date/Time: Feb 05, 2023 03:10 PM Reporting Lab: [facility] [address] Performing Lab: [facility] [address] [place] [facility] BASIC METABOLI C PANEL+MG SODIUM [MOLES/VOL UME] IN SERUM OR PLASMA 135 136 - 145 02/13 L Specimen Type: PLASMA No comment entered. Ordering Provider: ANKUSH BOWMAN Report Released Date/Time: Feb 05, 2023 03:10 PM Reporting Lab: [facility] [address] Performing Lab: [facility] [address] [place] [facility] BASIC METABOLI C PANEL+MG POTASSIUM [MOLES/VOL UME] IN SERUM OR PLASMA 4.0 3.5 - 5.1 02/13 Specimen Type: PLASMA No comment entered. Ordering Provider: ANKUSH BOWMAN Report Released Date/Time: Feb 05, 2023 03:10 PM Reporting Lab: [facility] [address] Performing Lab: [facility] [address] [place] [facility] BASIC METABOLI C PANEL+MG CHLORIDE [MOLES/VOL UME] IN SERUM OR PLASMA 99 98 - 107 02/13 Specimen Type: PLASMA No comment entered. Ordering Provider: ANKUSH BOWMAN Report Released Date/Time: Feb 05, 2023 03:10 PM Reporting Lab: [facility] [address] Performing Lab: [facility] [address] [place] [facility] BASIC METABOLI C PANEL+MG CARBON DIOXIDE, TOTAL [MOLES/VOL UME] IN SERUM OR PLASMA 29 22 - 29 02/13 Specimen Type: PLASMA No comment entered. Ordering Provider: ANKUSH BOWMAN Report Released Date/Time: Feb 05, 2023 03:10 PM Reporting Lab: [facility] [address] Performing Lab: [facility] [address] [place] [facility] BASIC METABOLI C PANEL+MG CALCIUM [MASS/VOLU ME] IN SERUM OR PLASMA 9.2 8.4 - 10.2 02/13 Specimen Type: PLASMA No comment entered. Ordering Provider: ANKUSH BOWMAN Report Released Date/Time: Feb 05, 2023 03:10 PM Reporting Lab: [facility] [address] Performing Lab: [facility] [address] [place] [facility] BASIC METABOLI C PANEL+MG MAGNESIUM [MASS/VOLU ME] IN SERUM OR PLASMA 2.0 1.6 - 2.6 02/13 Specimen Type: PLASMA No comment entered. Ordering Provider: ANKUSH BOWMAN Report Released Date/Time: Feb 05, 2023 03:10 PM Reporting Lab: [facility] [address] Performing Lab: [facility] [address] [place] [facility] BASIC METABOLI C PANEL+MG ANION GAP IN SERUM OR PLASMA 7 5 - 15 02/13 Specimen Type: PLASMA No comment entered. Ordering Provider: ANKUSH BOWMAN Report Released Date/Time: Feb 05, 2023 03:10 PM Reporting Lab: [facility] [address] Performing Lab: [facility] [address] [place] [facility] BASIC METABOLI C PANEL+MG GLOMERULAR FILTRATION RATE/1.73 SQ M.PREDICTE D [VOLUME RATE/AREA] IN SERUM, PLASMA OR BLOOD BY CREATININE -BASED FORMULA (CKD-EPI) >90 60 02/13 Specimen Type: PLASMA No comment entered. Ordering Provider: ANKUSH BOWMAN Report Released Date/Time: Feb 05, 2023 03:10 PM Reporting Lab: [facility] [address] Performing Lab: [facility] [address] [place] [facility] URINALYS IS COLOR OF URINE YELLOW 10/08 Specimen Type: URINE No comment entered. Ordering Provider: ANKUSH BOWMAN Report Released Date/Time: Sep 24, 2022 01:55 PM Reporting Lab: [facility] [address] Performing Lab: [facility] [address] [place] [facility] URINALYS IS SPECIFIC GRAVITY OF URINE 1.023 1.003 - 1.035 10/08 Specimen Type: URINE No comment entered. Ordering Provider: ANKUSH BOWMAN Report Released Date/Time: Sep 24, 2022 01:55 PM Reporting Lab: [facility] [address] Performing Lab: [facility] [address] [place] [facility] URINALYS IS BILIRUBIN. TOTAL [PRESENCE] IN URINE BY TEST STRIP NEGATIVE 10/08 Specimen Type: URINE No comment entered. Ordering Provider: ANKUSH BOWMAN Report Released Date/Time: Sep 24, 2022 01:55 PM Reporting Lab: [facility] [address] Performing Lab: [facility] [address] [place] [facility] URINALYS IS KETONES [MASS/VOLU ME] IN URINE BY TEST STRIP NEGATIVE 10/08 Specimen Type: URINE No comment entered. Ordering Provider: ANKUSH BOWMAN Report Released Date/Time: Sep 24, 2022 01:55 PM Reporting Lab: [facility] [address] Performing Lab: [facility] [address] [place] [facility] URINALYS IS GLUCOSE [MASS/VOLU ME] IN URINE BY TEST STRIP NEGATIVE 10/08 Specimen Type: URINE No comment entered. Ordering Provider: ANKUSH BOWMAN Report Released Date/Time: Sep 24, 2022 01:55 PM Reporting Lab: [facility] [address] Performing Lab: [facility] [address] [place] [facility] URINALYS IS PROTEIN [MASS/VOLU ME] IN URINE BY TEST STRIP 30 10/08 Specimen Type: URINE No comment entered. Ordering Provider: ANKUSH BOWMAN Report Released Date/Time: Sep 24, 2022 01:55 PM Reporting Lab: [facility] [address] Performing Lab: [facility] [address] [place] [facility] URINALYS IS PH OF URINE BY TEST STRIP 7.5 5.0 - 8.0 10/08 Specimen Type: URINE No comment entered. Ordering Provider: ANKUSH BOWMAN Report Released Date/Time: Sep 24, 2022 01:55 PM Reporting Lab: [facility] [address] Performing Lab: [facility] [address] [place] [facility] URINALYS IS LEUKOCYTES [#/AREA] IN URINE SEDIMENT BY MICROSCOPY HIGH POWER FIELD >180 0 - 7 10/08 H Specimen Type: URINE No comment entered. Ordering Provider: ANKUSH BOWMAN Report Released Date/Time: Sep 24, 2022 01:55 PM Reporting Lab: [facility] [address] Performing Lab: [facility] [address] [place] [facility] URINALYS IS BACTERIA [PRESENCE] IN URINE SEDIMENT BY LIGHT MICROSCOPY MANY 10/08 Specimen Type: URINE No comment entered. Ordering Provider: ANKUSH BOWMAN Report Released Date/Time: Sep 24, 2022 01:55 PM Reporting Lab: [facility] [address] Performing Lab: [facility] [address] [place] [facility] URINALYS IS ERYTHROCYT ES [#/AREA] IN URINE SEDIMENT BY MICROSCOPY HIGH POWER FIELD 33 0 - 3 10/08 H Specimen Type: URINE No comment entered. Ordering Provider: ANKUSH BOWMAN Report Released Date/Time: Sep 24, 2022 01:55 PM Reporting Lab: [facility] [address] Performing Lab: [facility] [address] [place] [facility] URINALYS IS APPEARANCE OF URINE EX.TURBI D 10/08 Specimen Type: URINE No comment entered. Ordering Provider: ANKUSH BOWMAN Report Released Date/Time: Sep 24, 2022 01:55 PM Reporting Lab: [facility] [address] Performing Lab: [facility] [address] [place] [facility] URINALYS IS EPITHELIAL CELLS.SQUA MOUS [#/AREA] IN URINE SEDIMENT BY MICROSCOPY HIGH POWER FIELD 1 10/08 Specimen Type: URINE No comment entered. Ordering Provider: ANKUSH BOWMAN Report Released Date/Time: Sep 24, 2022 01:55 PM Reporting Lab: [facility] [address] Performing Lab: [facility] [address] [place] [facility] URINALYS IS HEMOGLOBIN [PRESENCE] IN URINE BY TEST STRIP 1+ 10/08 Specimen Type: URINE No comment entered. Ordering Provider: ANKUSH BOWMAN Report Released Date/Time: Sep 24, 2022 01:55 PM Reporting Lab: [facility] [address] Performing Lab: [facility] [address] [place] [facility] URINALYS IS NITRITE [PRESENCE] IN URINE BY TEST STRIP NEGATIVE 10/08 Specimen Type: URINE No comment entered. Ordering Provider: ANKUSH BOWMAN Report Released Date/Time: Sep 24, 2022 01:55 PM Reporting Lab: [facility] [address] Performing Lab: [facility] [address] [place] [facility] URINALYS IS LEUKOCYTE CLUMPS [#/VOLUME] IN URINE BY AUTOMATED COUNT PRESENT 10/08 Specimen Type: URINE No comment entered. Ordering Provider: ANKUSH BOWMAN Report Released Date/Time: Sep 24, 2022 01:55 PM Reporting Lab: [facility] [address] Performing Lab: [facility] [address] [place] [facility] URINALYS IS LEUKOCYTE ESTERASE [PRESENCE] IN URINE BY TEST STRIP 500 10/08 Specimen Type: URINE No comment entered. Ordering Provider: ANKUSH BOWMAN Report Released Date/Time: Sep 24, 2022 01:55 PM Reporting Lab: [facility] [address] Performing Lab: [facility] [address] [place] [facility] ALBUMIN ALBUMIN [MASS/VOLU ME] IN SERUM OR PLASMA 4.2 3.5 - 5.2 10/08 Specimen Type: PLASMA No comment entered. Ordering Provider: ANKUSH BOWMAN Report Released Date/Time: Sep 24, 2022 01:55 PM Reporting Lab: [facility] [address] Performing Lab: [facility] [address] [place] [facility] PRE-ALBU MIN PREALBUMIN [MASS/VOLU ME] IN SERUM OR PLASMA 28.4 14.0 - 45.0 10/08 Specimen Type: SERUM No comment entered. Ordering Provider: ANKUSH BOWMAN Report Released Date/Time: Sep 24, 2022 01:55 PM Reporting Lab: [facility] [address] Performing Lab: [facility] [address] [place] [facility] COMPREHE NSIVE METABOLI C PANEL+MG CREATININE [MASS/VOLU ME] IN SERUM OR PLASMA 0.7 0.7 - 1.2 10/08 Specimen Type: PLASMA No comment entered. Ordering Provider: ANKUSH BOWMAN Report Released Date/Time: Sep 24, 2022 01:55 PM Reporting Lab: [facility] [address] Performing Lab: [facility] [address] [facility] COMPREHE NSIVE METABOLI C PANEL+MG UREA NITROGEN [MASS/VOLU ME] IN SERUM OR PLASMA 16 8 - 26 10/08 Specimen Type: PLASMA No comment entered. Ordering Provider: ANKUSH BOWMAN Report Released Date/Time: Sep 24, 2022 01:55 PM Reporting Lab: [facility] [address] Performing Lab: [facility] [address] [place] [facility] COMPREHE NSIVE METABOLI C PANEL+MG GLUCOSE [MASS/VOLU ME] IN SERUM OR PLASMA 94 70 - 100 10/08 Specimen Type: PLASMA No comment entered. Ordering Provider: ANKUSH BOWMAN Report Released Date/Time: Sep 24, 2022 01:55 PM Reporting Lab: [facility] [address] Performing Lab: [facility] [address] [place] [facility] COMPREHE NSIVE METABOLI C PANEL+MG SODIUM [MOLES/VOL UME] IN SERUM OR PLASMA 138 136 - 145 10/08 Specimen Type: PLASMA No comment entered. Ordering Provider: ANKUSH BOWMAN Report Released Date/Time: Sep 24, 2022 01:55 PM Reporting Lab: [facility] [address] Performing Lab: [facility] [address] [place] [facility] COMPREHE NSIVE METABOLI C PANEL+MG POTASSIUM [MOLES/VOL UME] IN SERUM OR PLASMA 3.9 3.5 - 5.1 10/08 Specimen Type: PLASMA No comment entered. Ordering Provider: ANKUSH BOWMAN Report Released Date/Time: Sep 24, 2022 01:55 PM Reporting Lab: [facility] [address] Performing Lab: [facility] [address] [place] [facility] COMPREHE NSIVE METABOLI C PANEL+MG CHLORIDE [MOLES/VOL UME] IN SERUM OR PLASMA 101 98 - 107 10/08 Specimen Type: PLASMA No comment entered. Ordering Provider: ANKUSH BOWMAN Report Released Date/Time: Sep 24, 2022 01:55 PM Reporting Lab: [facility] [address] Performing Lab: [facility] [address] [place] [facility] COMPREHE NSIVE METABOLI C PANEL+MG CARBON DIOXIDE, TOTAL [MOLES/VOL UME] IN SERUM OR PLASMA - 10/08 Specimen Type: PLASMA No comment entered. Ordering Provider: ANKUSH BOWMAN Report Released Date/Time: Sep 24, 2022 01:55 PM Reporting Lab: [facility] [address] Performing Lab: [facility] [address] [place] [facility] COMPREHE NSIVE METABOLI C PANEL+MG CALCIUM [MASS/VOLU ME] IN SERUM OR PLASMA 9.7 8.4 - 10.2 10/08 Specimen Type: PLASMA No comment entered. Ordering Provider: ANKUSH BOWMAN Report Released Date/Time: Sep 24, 2022 01:55 PM Reporting Lab: [facility] [address] Performing Lab: [facility] [address] [place] [facility] COMPREHE NSIVE METABOLI C PANEL+MG PROTEIN [MASS/VOLU ME] IN SERUM OR PLASMA 7.6 6.0 - 8.3 11/28 /2022 Specimen Type: PLASMA No comment entered. Ordering Provider: ANKUSH BOWMAN Report Released Date/Time: Sep 24, 2022 01:55 PM Reporting Lab: [facility] [address] Performing Lab: [facility] [address] [place] [facility] COMPREHE NSIVE METABOLI C PANEL+MG ALBUMIN [MASS/VOLU ME] IN SERUM OR PLASMA 4.2 3.5 - 5.2 10/08 Specimen Type: PLASMA No comment entered. Ordering Provider: ANKUSH BOWMAN Report Released Date/Time: Sep 24, 2022 01:55 PM Reporting Lab: [facility] [address] Performing Lab: [facility] [address] [place] [facility] COMPREHE NSIVE METABOLI C PANEL+MG BILIRUBIN. TOTAL [MASS/VOLU ME] IN SERUM OR PLASMA 0.6 0.2 - 1.2 10/08 Specimen Type: PLASMA No comment entered. Ordering Provider: ANKUSH BOWMAN Report Released Date/Time: Sep 24, 2022 01:55 PM Reporting Lab: [facility] [address] Performing Lab: [facility] [address] [place] [facility] COMPREHE NSIVE METABOLI C PANEL+MG MAGNESIUM [MASS/VOLU ME] IN SERUM OR PLASMA 2.1 1.6 - 2.6 10/08 Specimen Type: PLASMA No comment entered. Ordering Provider: ANKUSH BOWMAN Report Released Date/Time: Sep 24, 2022 01:55 PM Reporting Lab: [facility] [address] Performing Lab: [facility] [address] [place] [facility] COMPREHE NSIVE METABOLI C PANEL+MG ANION GAP IN SERUM OR PLASMA 9 5 - 15 10/08 Specimen Type: PLASMA No comment entered. Ordering Provider: ANKUSH BOWMAN Report Released Date/Time: Sep 24, 2022 01:55 PM Reporting Lab: [facility] [address] Performing Lab: [facility] [address] [place] [facility] COMPREHE NSIVE METABOLI C PANEL+MG ALKALINE PHOSPHATAS E [ENZYMATIC ACTIVITY/V OLUME] IN SERUM OR PLASMA 96 40 - 150 10/08 Specimen Type: PLASMA No comment entered. Ordering Provider: ANKUHS BOWMAN Report Released Date/Time: Sep 24, 2022 01:55 PM Reporting Lab: [facility] [address] Performing Lab: [facility] [address] [place] [facility] COMPREHE NSIVE METABOLI C PANEL+MG ALANINE AMINOTRANS FERASE [ENZYMATIC ACTIVITY/V OLUME] IN SERUM OR PLASMA 29 <55 - 55 10/08 Specimen Type: PLASMA No comment entered. Ordering Provider: ANKUSH BOWMAN Report Released Date/Time: Sep 24, 2022 01:55 PM Reporting Lab: [facility] [address] Performing Lab: [facility] [address] [place] [facility] COMPREHE NSIVE METABOLI C PANEL+MG ASPARTATE AMINOTRANS FERASE [ENZYMATIC ACTIVITY/V OLUME] IN SERUM OR PLASMA 22 <34 - 34 10/08 Specimen Type: PLASMA No comment entered. Ordering Provider: ANKUSH BOWMAN Report Released Date/Time: Sep 24, 2022 01:55 PM Reporting Lab: [facility] [address] Performing Lab: [facility] [address] [place] [facility] COMPREHE NSIVE METABOLI C PANEL+MG GLOMERULAR FILTRATION RATE/1.73 SQ M.PREDICTE D [VOLUME RATE/AREA] IN SERUM, PLASMA OR BLOOD BY CREATININE -BASED FORMULA (CKD-EPI) >90 60 10/08 Specimen Type: PLASMA No comment entered. Ordering Provider: ANKUSH BOWMAN Report Released Date/Time: Sep 24, 2022 01:55 PM Reporting Lab: [facility] [address] Performing Lab: [facility] [address] [facility] CBC & DIFF LEUKOCYTES [#/VOLUME] IN BLOOD BY AUTOMATED COUNT 7.32 4.0 - 11.0 10/08 Specimen Type: BLOOD Comment: Automated Differentia l Performed Ordering Provider: ANKUSH BOWMAN Report Released Date/Time: Sep 24, 2022 01:55 PM Reporting Lab: [facility] [address] Performing Lab: [facility] [address] [place] [facility] CBC & DIFF ERYTHROCYT ES [#/VOLUME] IN BLOOD BY AUTOMATED COUNT 4.80 4.6 - 6.2 10/08 Specimen Type: BLOOD Comment: Automated Differentia l Performed Ordering Provider: ANKUSH BOWMAN Report Released Date/Time: Sep 24, 2022 01:55 PM Reporting Lab: [facility] [address] Performing Lab: [facility] [address] [place] [facility] CBC & DIFF HEMOGLOBIN [MASS/VOLU ME] IN BLOOD 14.7 13.5 - 17.9 10/08 Specimen Type: BLOOD Comment: Automated Differentia l Performed Ordering Provider: ANKUSH BOWMAN Report Released Date/Time: Sep 24, 2022 01:55 PM Reporting Lab: [facility] [address] Performing Lab: [facility] [address] [place] [facility] CBC & DIFF HEMATOCRIT [VOLUME FRACTION] OF BLOOD BY AUTOMATED COUNT 44.2 41 - 54 10/08 Specimen Type: BLOOD Comment: Automated Differentia l Performed Ordering Provider: ANKUSH BOWMAN Report Released Date/Time: Sep 24, 2022 01:55 PM Reporting Lab: [facility] [address] Performing Lab: [facility] [address] [place] [facility] CBC & DIFF MCV [ENTITIC VOLUME] BY AUTOMATED COUNT 92.1 80 - 100 10/08 Specimen Type: BLOOD Comment: Automated Differentia l Performed Ordering Provider: ANKUSH BOWMAN Report Released Date/Time: Sep 24, 2022 01:55 PM Reporting Lab: [facility] [address] Performing Lab: [facility] [address] [place] [facility] CBC & DIFF MCH [ENTITIC MASS] BY AUTOMATED COUNT 30.6 27 - 33 10/08 Specimen Type: BLOOD Comment: Automated Differentia l Performed Ordering Provider: ANUKSH BOWMAN Report Released Date/Time: Sep 24, 2022 01:55 PM Reporting Lab: [facility] [address] Performing Lab: [facility] [address] [place] [facility] CBC & DIFF MCHC [MASS/VOLU ME] BY AUTOMATED COUNT 33.3 32.0 - 37.5 10/08 Specimen Type: BLOOD Comment: Automated Differentia l Performed Ordering Provider: ANKUSH BOWMAN Report Released Date/Time: Sep 24, 2022 01:55 PM Reporting Lab: [facility] [address] Performing Lab: [facility] [address] [place] [facility] CBC & DIFF PLATELETS [#/VOLUME] IN BLOOD BY AUTOMATED COUNT 144 150 - 400 10/08 L Specimen Type: BLOOD Comment: Automated Differentia l Performed Ordering Provider: ANKUSH BOWMAN Report Released Date/Time: Sep 24, 2022 01:55 PM Reporting Lab: [facility] [address] Performing Lab: [facility] [address] [place] [facility] CBC & DIFF PLATELET MEAN VOLUME [ENTITIC VOLUME] IN BLOOD BY AUTOMATED COUNT 10.8 7.4 - 10.4 10/08 H Specimen Type: BLOOD Comment: Automated Differentia l Performed Ordering Provider: ANKUSH BOWMAN Report Released Date/Time: Sep 24, 2022 01:55 PM Reporting Lab: [facility] [address] Performing Lab: [facility] [address] [place] [facility] CBC & DIFF NEUTROPHIL S/100 LEUKOCYTES IN BLOOD BY MANUAL COUNT 55.5 10/08 Specimen Type: BLOOD Comment: Automated Differentia l Performed Ordering Provider: ANKUSH BOWMAN Report Released Date/Time: Sep 24, 2022 01:55 PM Reporting Lab: [facility] [address] Performing Lab: [facility] [address] [place] [facility] CBC & DIFF LYMPHOCYTE S/100 LEUKOCYTES IN BLOOD BY MANUAL COUNT 31.4 10/08 Specimen Type: BLOOD Comment: Automated Differentia l Performed Ordering Provider: ANKUSH BOWMAN Report Released Date/Time: Sep 24, 2022 01:55 PM Reporting Lab: [facility] [address] Performing Lab: [facility] [address] [place] [facility] CBC & DIFF MONOCYTES/ 100 LEUKOCYTES IN BLOOD BY AUTOMATED COUNT 10.2 10/08 Specimen Type: BLOOD Comment: Automated Differentia l Performed Ordering Provider: ANKUSH BOWMAN Report Released Date/Time: Sep 24, 2022 01:55 PM Reporting Lab: [facility] [address] Performing Lab: [facility] [address] [place] [facility] CBC & DIFF EOSINOPHIL S/100 LEUKOCYTES IN BLOOD BY AUTOMATED COUNT 2.2 10/08 Specimen Type: BLOOD Comment: Automated Differentia l Performed Ordering Provider: ANKUSH BOWMAN Report Released Date/Time: Sep 24, 2022 01:55 PM Reporting Lab: [facility] [address] Performing Lab: [facility] [address] [place] [facility] CBC & DIFF BASOPHILS/ 100 LEUKOCYTES IN BLOOD BY MANUAL COUNT 0.4 10/08 Specimen Type: BLOOD Comment: Automated Differentia l Performed Ordering Provider: ANKUSH BOWMAN Report Released Date/Time: Sep 24, 2022 01:55 PM Reporting Lab: [facility] [address] Performing Lab: [facility] [address] [place] [facility] CBC & DIFF ERYTHROCYT E DISTRIBUTI ON WIDTH [RATIO] BY AUTOMATED COUNT 15.9 11.5 - 14.5 10/08 H Specimen Type: BLOOD Comment: Automated Differentia l Performed Ordering Provider: ANKUSH BOWMAN Report Released Date/Time: Sep 24, 2022 01:55 PM Reporting Lab: [facility] [address] Performing Lab: [facility] [address] [place] [facility] CBC & DIFF LYMPHOCYTE S [#/VOLUME] IN BLOOD BY AUTOMATED COUNT 2.30 1.0 - 4.0 10/08 Specimen Type: BLOOD Comment: Automated Differentia l Performed Ordering Provider: ANKUSH BOWMAN Report Released Date/Time: Sep 24, 2022 01:55 PM Reporting Lab: [facility] [address] Performing Lab: [facility] [address] [place] [facility] CBC & DIFF MONOCYTES [#/VOLUME] IN BLOOD BY AUTOMATED COUNT 0.75 0.1 - 1.0 10/08 Specimen Type: BLOOD Comment: Automated Differentia l Performed Ordering Provider: ANKUSH BOWMAN Report Released Date/Time: Sep 24, 2022 01:55 PM Reporting Lab: [facility] [address] Performing Lab: [facility] [address] [place] [facility] CBC & DIFF NEUTROPHIL S [#/VOLUME] IN BLOOD BY AUTOMATED COUNT 4.06 2.0 - 7.7 10/08 Specimen Type: BLOOD Comment: Automated Differentia l Performed Ordering Provider: ANKUSH BOWMAN Report Released Date/Time: Sep 24, 2022 01:55 PM Reporting Lab: [facility] [address] Performing Lab: [facility] [address] [place] [facility] CBC & DIFF EOSINOPHIL S [#/VOLUME] IN BLOOD BY AUTOMATED COUNT 0.16 0 - 0.5 10/08 Specimen Type: BLOOD Comment: Automated Differentia l Performed Ordering Provider: ANKUSH BOWMAN Report Released Date/Time: Sep 24, 2022 01:55 PM Reporting Lab: [facility] [address] Performing Lab: [facility] [address] [place] [facility] CBC & DIFF BASOPHILS [#/VOLUME] IN BLOOD BY AUTOMATED COUNT 0.03 0 - 0.2 10/08 Specimen Type: BLOOD Comment: Automated Differentia l Performed Ordering Provider: ANKUSH BOWMAN Report Released Date/Time: Sep 24, 2022 01:55 PM Reporting Lab: [facility] [address] Performing Lab: [facility] [address] [place] [facility] CBC & DIFF IG(META,MY MALACHI,PRO) 0.3 10/08 Specimen Type: BLOOD Comment: Automated Differentia l Performed Ordering Provider: ANKUSH BOWMAN Report Released Date/Time: Sep 24, 2022 01:55 PM Reporting Lab: [facility] [address] Performing Lab: [facility] [address] [place] [facility] CBC & DIFF IMMATURE GRANULOCYT ES [PRESENCE] IN BLOOD BY AUTOMATED COUNT 0.02 0 - 0.1 10/08 Specimen Type: BLOOD Comment: Automated Differentia l Performed Ordering Provider: ANKUSH BOWMAN Report Released Date/Time: Sep 24, 2022 01:55 PM Reporting Lab: [facility] [address] Performing Lab: [facility] [address] [place] [facility] CYSTATIN C WITH EGFR CYSTATIN C [MASS/VOLU ME] IN SERUM OR PLASMA 1.38 0.51 - 1.05 10/08 H Specimen Type: PLASMA No comment entered. Ordering Provider: ANKUSH BOWMAN Report Released Date/Time: Sep 24, 2022 01:55 PM Reporting Lab: [facility] [address] Performing Lab: [facility] [address] [place] [facility] CYSTATIN C WITH EGFR CYSTATIN C AND GLOMERULAR FILTRATION RATE BY CYSTATIN-B ASED FORMULA PANEL - SERUM OR PLASMA 48 60 10/08 L Specimen Type: PLASMA No comment entered. Ordering Provider: ANKUSH BOWMAN Report Released Date/Time: Sep 24, 2022 01:55 PM Reporting Lab: [facility] [address] Performing Lab: [facility] [address] [place] [facility] VIT D 25-OH,TO ZAMZAM 25-HYDROXY VITAMIN D3 [MASS/VOLU ME] IN SERUM OR PLASMA 54 12 - 50 10/08 H Specimen Type: SERUM No comment entered. Ordering Provider: ANKUSH BOWMAN Report Released Date/Time: Sep 24, 2022 01:55 PM Reporting Lab: [facility] [address] Performing Lab: [facility] [address] [place] [facility] COMPREHE NSIVE METABOLI C PANEL+MG CREATININE [MASS/VOLU ME] IN SERUM OR PLASMA 0.7 0.7 - 1.2 05/28 Specimen Type: PLASMA No comment entered. Ordering Provider: GERMANIA HANSON Report Released Date/Time: May 28, 2022 03:06 PM Reporting Lab: [facility] [address] Performing Lab: [facility] [address] [facility] COMPREHE NSIVE METABOLI C PANEL+MG UREA NITROGEN [MASS/VOLU ME] IN SERUM OR PLASMA 13 8 - 26 05/28 Specimen Type: PLASMA No comment entered. Ordering Provider: GERMANIA HANSON Report Released Date/Time: May 28, 2022 03:06 PM Reporting Lab: [facility] [address] Performing Lab: [facility] [address] [facility] COMPREHE NSIVE METABOLI C PANEL+MG GLUCOSE [MASS/VOLU ME] IN SERUM OR PLASMA 98 74 - 100 05/28 Specimen Type: PLASMA No comment entered. Ordering Provider: GERMANIA HANSON Report Released Date/Time: May 28, 2022 03:06 PM Reporting Lab: [facility] [address] Performing Lab: [facility] [address] [facility] COMPREHE NSIVE METABOLI C PANEL+MG SODIUM [MOLES/VOL UME] IN SERUM OR PLASMA 138 136 - 145 05/28 Specimen Type: PLASMA No comment entered. Ordering Provider: GERMANIA HANSON Report Released Date/Time: May 28, 2022 03:06 PM Reporting Lab: [facility] [address] Performing Lab: [facility] [address] [facility] COMPREHE NSIVE METABOLI C PANEL+MG POTASSIUM [MOLES/VOL UME] IN SERUM OR PLASMA 4.4 3.5 - 5.1 05/28 Specimen Type: PLASMA No comment entered. Ordering Provider: GERMANIA HANSON Report Released Date/Time: May 28, 2022 03:06 PM Reporting Lab: [facility] [address] Performing Lab: [facility] [address] [facility] COMPREHE NSIVE METABOLI C PANEL+MG CHLORIDE [MOLES/VOL UME] IN SERUM OR PLASMA 102 98 - 107 05/28 Specimen Type: PLASMA No comment entered. Ordering Provider: GERMANIA HNASON Report Released Date/Time: May 28, 2022 03:06 PM Reporting Lab: [facility] [address] Performing Lab: [facility] [address] [facility] COMPREHE NSIVE METABOLI C PANEL+MG CARBON DIOXIDE, TOTAL [MOLES/VOL UME] IN SERUM OR PLASMA 28 - 29 05/28 Specimen Type: PLASMA No comment entered. Ordering Provider: GERMANIA HANSON Report Released Date/Time: May 28, 2022 03:06 PM Reporting Lab: [facility] [address] Performing Lab: [facility] [address] [facility] COMPREHE NSIVE METABOLI C PANEL+MG CALCIUM [MASS/VOLU ME] IN SERUM OR PLASMA 9.4 8.4 - 10.2 05/28 Specimen Type: PLASMA No comment entered. Ordering Provider: GERMANIA HANSON Report Released Date/Time: May 28, 2022 03:06 PM Reporting Lab: [facility] [address] Performing Lab: [facility] [address] [facility] COMPREHE NSIVE METABOLI C PANEL+MG PROTEIN [MASS/VOLU ME] IN SERUM OR PLASMA 7.6 6.0 - 8.3 05/28 Specimen Type: PLASMA No comment entered. Ordering Provider: GERMANIA HANSON Report Released Date/Time: May 28, 2022 03:06 PM Reporting Lab: [facility] [address] Performing Lab: [facility] [address] [facility] COMPREHE NSIVE METABOLI C PANEL+MG ALBUMIN [MASS/VOLU ME] IN SERUM OR PLASMA 4.0 3.5 - 5.2 05/28 Specimen Type: PLASMA No comment entered. Ordering Provider: GERMANIA HANSON Report Released Date/Time: May 28, 2022 03:06 PM Reporting Lab: [facility] [address] Performing Lab: [facility] [address] [facility] COMPREHE NSIVE METABOLI C PANEL+MG BILIRUBIN. TOTAL [MASS/VOLU ME] IN SERUM OR PLASMA 0.5 0.2 - 1.2 05/28 Specimen Type: PLASMA No comment entered. Ordering Provider: GERMANIA HANSON Report Released Date/Time: May 28, 2022 03:06 PM Reporting Lab: [facility] [address] Performing Lab: [facility] [address] [facility] COMPREHE NSIVE METABOLI C PANEL+MG MAGNESIUM [MASS/VOLU ME] IN SERUM OR PLASMA 2.1 1.6 - 2.6 05/28 Specimen Type: PLASMA No comment entered. Ordering Provider: GERMANIA HANSON Report Released Date/Time: May 28, 2022 03:06 PM Reporting Lab: [facility] [address] Performing Lab: [facility] [address] [facility] COMPREHE NSIVE METABOLI C PANEL+MG ANION GAP IN SERUM OR PLASMA 8 5 - 15 05/28 Specimen Type: PLASMA No comment entered. Ordering Provider: GERMANIA HANSON Report Released Date/Time: May 28, 2022 03:06 PM Reporting Lab: [facility] [address] Performing Lab: [facility] [address] [facility] COMPREHE NSIVE METABOLI C PANEL+MG ALKALINE PHOSPHATAS E [ENZYMATIC ACTIVITY/V OLUME] IN SERUM OR PLASMA 108 40 - 150 05/28 Specimen Type: PLASMA No comment entered. Ordering Provider: GERMANIA HANSON Report Released Date/Time: May 28, 2022 03:06 PM Reporting Lab: [facility] [address] Performing Lab: [facility] [address] [facility] COMPREHE NSIVE METABOLI C PANEL+MG ALANINE AMINOTRANS FERASE [ENZYMATIC ACTIVITY/V OLUME] IN SERUM OR PLASMA 27 <55 - 55 05/28 Specimen Type: PLASMA No comment entered. Ordering Provider: GERMANIA HANSON Report Released Date/Time: May 28, 2022 03:06 PM Reporting Lab: [facility] [address] Performing Lab: [facility] [address] [facility] COMPREHE NSIVE METABOLI C PANEL+MG ASPARTATE AMINOTRANS FERASE [ENZYMATIC ACTIVITY/V OLUME] IN SERUM OR PLASMA 21 <34 - 34 05/28 Specimen Type: PLASMA No comment entered. Ordering Provider: GERMANIA HANSON Report Released Date/Time: May 28, 2022 03:06 PM Reporting Lab: [facility] [id number] Performing Lab: [facility] [id number] [facility] COMPREHE NSIVE METABOLI C PANEL+MG GLOMERULAR FILTRATION RATE/1.73 SQ M.PREDICTE D [VOLUME RATE/AREA] IN SERUM, PLASMA OR BLOOD BY CREATININE -BASED FORMULA (CKD-EPI) >90 60 05/28 Specimen Type: PLASMA No comment entered. Ordering Provider: GERMANIA HANSON Report Released Date/Time: May 28, 2022 03:06 PM Reporting Lab: [facility] [id number] Performing Lab: [facility] [id number] SADAF NORMAN Vital Signs Combined list of inpatient and outpatient Vital Signs from Department of Defense and Veterans Affairs, ranging from 12 months to all on record, depending upon the facility. Vital Sign Value Date Comments Source SYSTOLIC BLOOD PRESSURE 103 02/13/2023 10:58:23 [facility] DIASTOLIC BLOOD PRESSURE 66 02/13/2023 10:58:23 [facility] PULSE OXIMETRY 98% 02/13/2023 10:58:23 [place] [facility] PAIN 4 02/13/2023 10:58:23 [place] [facility] TEMPERATURE 96.2 02/13/2023 10:58:23 [place] [facility] PULSE 86 02/13/2023 10:58:23 MADISYN AMAR[facility] RESPIRATION 16 02/13/2023 10:58:23 [facility] WEIGHT 225 02/05/2023 15:39:35 MADISYN AMARO [facility] BMI 33kg/m2 02/05/2023 15:39:35 MADISYN GONZALEZAldo [facility] Encounters Combined list of: 1) Encounters from Department of [facility] Affairs facilities [facility] 2) Encounters from the Department of [facility] facilities going back up to 280 months. Location Location Details Encounter Type Encounter Number Reason For Visit Attending Provider ADM Date DC Date Status Disposition Source SADAF TREVINO CB OFFICE O/P NEW HI 60-74 MIN [id number] Diagnos is: ICD-10- CM C72.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
GRANDIA,CO NNIE M 05/28 SAD[facility] TREVINO [facility] Outpatient Encounter [id number] 05/30 [facility] [place] [facility] Outpatient Encounter [id number] 06/01 [facility] [place] [facility] Outpatient Encounter [id number] 06/04 [facility] [place] [facility] Outpatient Encounter [id number] 06/05 [facility] SELF CARE MNGMENT TRAINING [id number] Diagnos is: ICD-10- CM Z73.6 Limitat ion of activit ies due to disabil ity<br/ > NADEEN MITCHELL 06/07 [facility] [place] [facility] Outpatient Encounter [id number] 06/07 [facility] [place] [facility] OT EVAL HIGH COMPLEX 60 MIN [id number] Diagnos is: ICD-10- CM R54 Age-rel ated physica l debilit y
ARLEN,SAVANNA INE WILDA 06/07 [place] [facility] [place] [facility] Outpatient Encounter [id number] 06/11 [place] [facility] [place] [facility] Outpatient Encounter [id number] 06/11 [place] [facility] [place] [facility] Outpatient Encounter [id number] 06/12 [place] [facility] [place] [facility] Outpatient Encounter [id number] 06/15 [place] [facility] [place] [facility] Outpatient Encounter [id number] 06/21 [place] [facility] [place] [facility] Outpatient Encounter [id number] 06/25 [place] [facility] [place] [facility] OFFICE O/P NEW LOW 30-44 MIN [id number] Diagnos is: ICD-10- CM G82.20 Paraple mary kay, unspeci fied
ME LOGAN BOWMAN 06/27 [place] [facility] [place] [facility] Outpatient Encounter [id number] 06/27 [place] [facility] [place] [facility] SELF CARE MNGMENT TRAINING [id number] Diagnos is: ICD-10- CM Z73.6 Limitat ion of activit ies due to disabil ity<br/ > AVE HALEY 07/11 [place] [facility] [place] [facility] Outpatient Encounter [id number] 07/18 [place] [facility] [place] [facility] SELF CARE MNGMENT TRAINING [id number] Diagnos is: ICD-10- CM Z73.6 Limitat ion of activit ies due to disabil ity<br/ > RACIEL CHOWDHURY 07[facility]23 [facility] [place] [facility] SELF CARE MNGMENT TRAINING [id number] Diagnos is: ICD-10- CM Z73.6 Limitat ion of activit ies due to disabil ity<br/ > AVE HALEYLucas M 07/25 [facility] OT EVAL MOD COMPLEX 45 MIN [id number] Diagnos is: ICD-10- CM Z73.6 Limitat ion of activit ies due to disabil ity<br/ > AVE HALEY M 07/25 [facility] Outpatient Encounter [id number] Diagnos is: ICD-10- CM R26.9 Unspeci fied abnorma lities of gait and mobilit y
KARI JORDAN M 07/31 [facility] OFFICE O/P EST MOD 30-39 MIN [id number] Diagnos is: ICD-10- CM G82.20 Paraple mary kay, unspeci fied
GRACIE,ME FORD K 08/01 [facility] Outpatient Encounter [id number] 08/17 [facility] Outpatient Encounter [id number] 09/20 [facility] OFFICE O/P EST MINIMAL PROB [id number] Diagnos is: ICD-10- CM G82.20 Paraple mary kay, unspeci fied
Jey PATTON V 10/08 [facility] ASSISTIVE TECHNOLOGY ASSESS [id number] Diagnos is: ICD-10- CM Z73.6 Limitat ion of activit ies due to disabil ity<br/ > BOUSLOG,RY AN P 10/08 [facility] Outpatient Encounter [id number] 10/09 [facility] Outpatient Encounter [id number] 10/11 [facility] HC PRO PHONE CALL 5-10 MIN [id number] Diagnos is: ICD-10- CM Z73.6 Limitat ion of activit ies due to disabil ity<br/ > AVE HALEY 12/13 [facility] Outpatient Encounter [id number] 01/08 [facility] HC PRO PHONE CALL 21-30 MIN [id number] Diagnos is: ICD-10- CM G82.20 Paraple mary kay, unspeci fied
Hever CASTRO 01/08 [facility] Outpatient Encounter [id number] 01/09 [facility] DIABETIC MANAGEMENT PROGRAM, [id number] Diagnos is: ICD-10- CM G82.20 Paraple mary kay, unspeci fied
TIGIST BASSETT 01/30 [facility] Outpatient Encounter [id number] 02/05 [facility] MTMS BY PHARM ADDL 15 MIN [id number] Diagnos is: ICD-10- CM G82.20 Paraple mary kay, unspeci fied
MANPREET BARRETT 02/05 [facility] OT EVAL LOW COMPLEX 30 MIN [id number] Diagnos is: ICD-10- CM Z73.6 Limitat ion of activit ies due to disabil ity<br/ > Bryn PARDO 02/05 [facility] OFF/OP EST MAY X REQ PHY/QHP [phone] Diagnos is: ICD-10- CM G82.20 Paraple mary kay, unspeci fied
JOSUÉ ZAMORA J 02/05 [facility] PSYCH DIAGNOSTIC EVALUATION [id number] Diagnos is: ICD-10- CM F32.A Depress ion, unspeci fied
BINU GAMEZ 02/05 [facility] OFFICE O/P EST MOD 30-39 MIN [id number] Diagnos is: ICD-10- CM G82.20 Paraple mary kay, unspeci fied
ME LOGAN BOWMAN 02/05 [facility] PSYCH DIAGNOSTIC EVALUATION [id number] Diagnos is: ICD-10- CM G82.20 Paraple mary kay, unspeci fied
CHIRCHULA,AN DESIRE J 02/05 [facility] MEDICAL NUTRITION INDIV IN [id number] Diagnos is: ICD-10- CM Z71.3 Dietary director of counseling ing and surveil payal<b r/> Katia ARCHER 02/05 [facility] ENTEROSTOM AL THERAPY BY A RE [id number] Diagnos is: ICD-10- CM Z43.3 Encount er for attenti on to colosto my
VIOLA YOON 02/08 [facility] OFFICE O/P EST HI 40-54 MIN [id number] Diagnos is: ICD-10- CM G82.20 Paraple mary kay, unspeci fied
ME LOGAN BOWMAN 02/13 [facility] WHEELCHAIR MNGMENT TRAINING [id number] Diagnos is: ICD-10- CM Z73.6 Limitat ion of activit ies due to disabil ity<br/ > BOUSLOG,RY AN P 02/13 [place] [facility] [place] [facility] Outpatient Encounter [id number] 02/19 [facility] [place] [facility] HC PRO PHONE CALL 11-20 MIN [id number] Diagnos is: ICD-10- CM Z73.6 Limitat ion of activit ies due to disabil ity<br/ > BOUSLOG,RY AN P 04/23 [place] [facility] [place] [facility] Outpatient Encounter [id number] 04/24 [facility] [place] [facility] Outpatient Encounter [id number] 05/24 [facility] [place] [facility] OFF/OP EST MARCH X REQ PHY/QHP [id number] Diagnos is: ICD-10- CM G82.20 Paraple mary kay, unspeci fied
VIOLA YOON NDJagdish 05/28 [facility] WHEELCHAIR MNGMENT TRAINING [id number] Diagnos is: ICD-10- CM Z73.6 Limitat ion of activit ies due to disabil ity<br/ > BOUSLOG,RY AN P 06/10 [facility] [place] [facility] Outpatient Encounter [id number] 10/28 [facility] [place] [facility] Outpatient Encounter [id number] 11/20 [facility] Social History Combined list of available smoking, tobacco, and other social history from 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 Social History Type Response Date Comment [facility] e Tobacco smoking status [facility] NEVER USED 05/28/20 22 SADAF TREVINO [facility] This section is an empty social history section. DoD Advance Directives List of completed, amended, or rescinded Advance Directives on record at Department of [facility] facilities. An actual copy of the Directive is not included. Date Advance Directive Provider Source 02/05/2023 ADVANCE DIRECTIVE DISCUSSION GUSTAVO ABAD [facility]
--- OUTSIDE RECORDS SUMMARY | 2023-12-16 12:43 | XMS_ITS | Encounter Summary ---
Author Name Unknown Organization [facility] Address [address], [place] [address] Care Team Providers Care Pharmacogeneticist Name Role Phone Franklin Squires MD Primary Care Provider Encounter Details Date Type Department Care Team Description 01/06/2016 Correspondence [facility] Radiology [address] [place] [id number] Radiology, Provider MRI SAFETY SHEET AND COMPATIBILITY [...] on filedocumented in this encounter Care Teams Pharmacogeneticist Relationship Specialty Start Date End Date Franklin Squires MD [address] [place] [address] [place] [address] PCP - General Family Practice 03/08/16 documented as of this encounter
--- OUTSIDE RECORDS SUMMARY | 2023-12-16 12:43 | XMS_ITS | Clinical Summary ---
Author Name Unknown Organization [facility] Address [place], [place] [address] Care Team Providers Care Ham Passer Name Role Phone Zelalem Cohen MD Unavailable [phone] May Randle MD Unavailable [phone] Franklin Squires MD Primary Care Provider Fred Craft Unavailable [phone] Diane Charles MD Unavailable [phone] Julia Ware RN Unavailable [phone] Allergies Active Allergy Reactions Criticality Noted Date [...] bedIndications:Non-heal ing surgical wound, subsequent encounter Drive Adan 8 inch low loss mattress and 1/2 rails. Semi-electric bed. Length of need 6 weeks. Bed internet sourcer:no 1 unit 0 018 Active acetaminophen (TYLENOL [...] 60mm, Cut-to-Fit 01/16 - 2 11/18. Item #[id number]. 1 Each 11 021 Active furosemide (LASIX) 40 mg tabletIndications:Bilat eral [...] at bedtime. 90 Tablet 2 023 Active famotidine (PEPCID) 20 mg tabletIndications:Gastr [...] Take 1 Tablet by mouth. 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 270 Capsule 3 022 2023 Discontinued amLODIPine (NORVASC) 5 mg tabletIndications:Labil e hypertension Take 1 Tablet (5 mg) by mouth once daily. 90 Tablet 3 023 2023 Discontinued(R eorder (E-cancel not sent)) donepeziL (ARICEPT) 5 mg tabletIndications:Confu hailey Take 1 Tablet (5 mg) by mouth at bedtime. 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 [...] delivery 04/16/2007 10/01/2007 Overview: S/P IVC Filter 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 02/19/2007 09/27/2008 Depressive disorder, not elsewhere classified 02/14/20 07 01/15/2018 Abnormality of gait 12/24/2006 09/27/20 08 Urinary tract infection, site not specified 12/24/2006 01/15/2018 BENIGN ESSENTIAL HYPERTENSION 12/24/2006 04/17/2016 Overview: borderline Necrotizing fasciitis 2018 Type 2 diabetes mellitus Encounters Date Type Department Care Team Description 12/13/[address] [place] [address] Franklin Squires MD Form 12/12/[address] [address] Franklin Squires MD Refill Request (Gabapentin, Donepezil) 12/10/2023 Anticoagulation (warfarin) [address] [place] [address] , [facility] Anticoagulation (Acelis) 12/05/[address] [place] [address] Franklin Squires MD Form 12/03/2023 Anticoagulation (warfarin) [address] [place] [address] 1, [facility] Anticoagulation (acelis) 11/28/[address] [place] [address] Franklin Squires MD Refill Request (Oxycodone) 11/28/2023 Telephone [facility] [address] [place] [address] Franklin Squires MD Form 11/28/2023 Telephone [facility] [address] [place] [address] Franklin Squires MD Questions (GUAMANIAN) 11/26/2023 Anticoagulation (warfarin) [address] [place] [address] 1, [facility] Anticoagulation (Acelis) 11/21/2023 2:00 PM TURRET LATHE OPERATOR - 11/21/2023 11:59 PM TURRET LATHE OPERATOR Hospital Encounter [facility] [address] [place] [address] Soft tissue infection (Primary Dx) 11/21/2023 1:00 PM TURRET LATHE OPERATOR Office Visit [address] [place] [address] Franklin Squires MD Diabetes 11/21/2023 Anticoagulation (warfarin) [address] [place] [address] , [facility] Anticoagulation 11/20/2023 1:53 PM TURRET LATHE OPERATOR - 11/20/2023 11:59 PM TURRET LATHE OPERATOR Hospital Encounter [facility] [address] [place] [address] Pressure injury of sacral region, stage 3 (HC) (Primary Dx); Soft tissue infection 11/20/2023 Travel 11/19/2023 Orders Only [facility] [address] [place] [address] Yudith Mcgraw, CARROT HARVESTER 1 scan: PICC LINE, LABS AND INFUSION 11/18/2023 Orders Only [facility] Scanner 1 scan: (1-Ord) EHRHARDT, MULTIPLE LAB RESULTS, 11/18/2023 11/18/2023 Anticoagulation (warfarin) [address] [place] [address] 1, [facility] Anticoagulation (Acelis ) 11/18/[address] [place] [address] Franklin Squires MD Form 11/15/[address] [place] [address] Franklin Squires MD Form 11/14/[address] [place] [address] Franklin Squires MD Form 11/13/2023 1:00 PM TURRET LATHE OPERATOR Nurse/Clinic Staff Only [address] [place] [address] Removal; Insert 11/13/[address] [place] [address] Diane Charles MD Medication Management 11/13/2023 Travel 11/12/[address] [place] [address] Franklin Squires MD Form 11/08/2023 Anticoagulation (warfarin) [address] [place] [address] 1, [facility] Anticoagulation (acelis) 11/06/2023 Orders Only [facility] Scanner 1 scan: (1-Ord) [facility], INR 10/29/23 - 11/05/26, 11/06/2023 11/06/[address] [place] [address] 1, [facility] Refill Request (Warfarin 5 mg ) 11/06/2023 Anticoagulation (warfarin) [facility] [address] [place] [address] [place] [address] [facility] Anticoagulation (Chart update) 10/30/2023 Orders Only [facility] Scanner 1 scan: (1-Ord) [facility], SHARP DEBRIDEMENT DOWN TO BONE, 10/30/2023 10/29/2023 10:56 AM TURRET LATHE OPERATOR - 10/29/2023 11:59 PM TURRET LATHE OPERATOR Hospital Encounter [facility] [address] [place] [address] Yudith Mcgraw NP Soft tissue infection (Primary Dx) 10/29/2023 Travel 10/29/2023 Anticoagulation (warfarin) [facility] [address] [place] [address] 1, [facility] Anticoagulation (acelis) 10/28/2023 12:28 PM TURRET LATHE OPERATOR - 10/28/2023 11:59 PM TURRET LATHE OPERATOR Hospital Encounter [facility] [address] [place] [address] Yudith Mcgraw NP Soft tissue infection (Primary Dx) 10/28/2023 Orders Only [facility] [address] [place] [address] Diane Charles MD <No scans attached> 10/27/2023 12:26 PM TURRET LATHE OPERATOR - 10/27/2023 1:35 PM TURRET LATHE OPERATOR Hospital Encounter [facility] [address] [place] [address] Yudith Mcgraw NP Cahill, Terence Patrick, MD Soft tissue infection (Primary Dx) Discharge Disposition: Home Self Care 10/27/2023 Travel 10/26/2023 12:41 PM TURRET LATHE OPERATOR - 10/26/2023 1:28 PM TURRET LATHE OPERATOR Hospital Encounter [facility] [address] [facility] [place] [address] Yudith Mcgraw, Franklin Sorensen MD Soft tissue infection (Primary Dx) Discharge Disposition: Home Self Care 10/26/2023 Travel 10/25/2023 3:42 PM TURRET LATHE OPERATOR - 10/25/2023 6:10 PM TURRET LATHE OPERATOR Hospital Encounter [facility] [address] [place] [address] Yudith Mcgraw, CLEMENT Discharge Disposition: Home Self Care 10/25/2023 12:40 PM TURRET LATHE OPERATOR - 10/25/2023 1:30 PM TURRET LATHE OPERATOR Hospital Encounter [facility] [address] [place] [address] Yudith Mcgraw NP Cahill, Terence Patrick, MD Soft tissue infection (Primary Dx) Discharge Disposition: Home Self Care 10/25/2023 Travel 10/25/2023 Anticoagulation (warfarin) [address] [address] , [facility] Anticoagulation (acelis) 10/24/2023 12:24 PM TURRET LATHE OPERATOR - 10/24/2023 11:59 PM TURRET LATHE OPERATOR Hospital Encounter [facility] [address] [place] [address] Yudith Mcgraw NP Soft tissue infection (Primary Dx) 10/24/2023 Anticoagulation (warfarin) [address] [address] , [facility] Anticoagulation (Chart update, interacting medication) 10/23/2023 1:30 PM TURRET LATHE OPERATOR Nurse/Clinic Staff Only [address] [address] Removal; Insert 10/23/2023 12:22 PM TURRET LATHE OPERATOR - 10/23/2023 11:59 PM TURRET LATHE OPERATOR Hospital Encounter [facility] [address] [place] [address] Yudith Mcgraw NP Soft tissue infection (Primary Dx) 10/23/2023 Orders Only [facility] Scanner 1 scan: (1-Ord) [facility], CT PELVIS W CON , 10/23/2023 10/23/2023 Travel 10/23/[address] [place] [address] Franklin Squires MD Refill Request; Medication Management (Clarification of Pot Chlor ER (Disp) Tabs) 10/22/2023 Transcribe Orders [facility] [address] [place] [address] Yudith Mcgraw NP 10/22/2023 Refill [facility] [address] [place] [address] Franklin Squires MD Refill Request (Oxycodone, Lorazepam) 10/18/2023 Anticoagulation (warfarin) [address] [address] 1, [facility] Anticoagulation (acelis) 10/16/[address] [address] Franklin Squires MD Refill Request (Duloxetine) 10/07/[address] [place] [address] Franklin Squires MD Refill Request (Famotidine, Bupropion) 10/02/2023 2:00 PM TURRET LATHE OPERATOR Nurse/Clinic Staff Only [address] [address] Removal; Insert 10/02/2023 Travel 09/28/2023 Anticoagulation (warfarin) [address] [address] 1, [facility] Anticoagulation (Acelis) 09/24/[address] [place] [address] Franklin Squires MD Refill Request (Oxycodone) 09/20/2023 Anticoagulation (warfarin) [address] [place] [address] , [facility] Anticoagulation (Acelis) 09/17/2023 Telephone [facility] [address] [address] Franklin Squires MD Anticoagulation (Annual re-enrollment ) from Last 3 Months Immunizations Name Administration [...] Comments Blood Pressure 146/81 11/21/2023 2:37 PM TURRET LATHE OPERATOR Pulse 88 11/21/2023 2:37 PM TURRET LATHE OPERATOR Temperature 36.4 ??C (97.6 ??F) 11/21/2023 2:37 PM CS T Respiratory Rate 20 11/21/2023 2:37 PM TURRET LATHE OPERATOR Oxygen Saturation 95% 11/21/2023 2:37 PM TURRET LATHE OPERATOR Inhaled Oxygen Concentration - - Weight 99.8 kg (220 lb) 08/18/2023 11:40 AM CDT Height 180.3 cm (5' 11) 08/18/2023 11:40 AM CDT Body Mass Index 30.68 08/18/2023 11:40 AM CDT Plan of Treatment Upcoming Encounters Date Type Department Care Team (Late st Contact Info) Description 12/19/2023 1:50 PM TURRET LATHE OPERATOR Office Visit [facility] [address] [place] [address] Franklin Squires MD [address] [place] [address] Health Maintenance Due Date Last Done Comments Hepatitis C screening for ag e 18-79 1963 Zoster (shingles) series for age 50+ (1 of 2) 01/11/2016 11/16/2015, 03/23/2013 Medicare Wellness for age 65+ 02/07/2018 02/06/2017, 10/19/2015 Depression screening for age 12+ [...] Associated Diagnosis Comments HOME MONITOR AC Routine 12/10/2023 12:00 AM TURRET LATHE OPERATOR HOME MONITOR AC Routine 12/03/2023 12:00 AM TURRET LATHE OPERATOR HOME MONITOR AC Routine 11/26/2023 12:00 AM TURRET LATHE OPERATOR SCAN CORRESP-LABORATORY RESULTS 11/21/2023 3:07 PM TURRET LATHE OPERATOR HEMOGLOBIN A1C STAT 11/21/2023 1:04 PM TURRET LATHE OPERATOR 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) PROTIME-INR STAT 11/21/2023 1:04 PM TURRET LATHE OPERATOR 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) Anticoagulation monitoring, INR range 2-3 HOME MONITOR AC Routine 11/18/2023 12:00 AM TURRET LATHE OPERATOR HOME MONITOR AC Routine 11/08/2023 12:00 AM TURRET LATHE OPERATOR SCAN-LABORATORY REPORT 11/06/2023 12:00 AM TURRET LATHE OPERATOR INR,POCT Routine 11/05/2023 INR,POCT Routine 11/04/2023 INR,POCT Routine 11/03/2023 INR,POCT Routine 11/02/2023 INR,POCT Routine 11/01/2023 INR,POCT Routine 10/31/2023 INR,POCT Routine 10/30/2023 SCAN-OPERATIVE/PROCED URE REPORT 10/30/2023 12:00 AM TURRET LATHE OPERATOR INR,POCT Routine 10/29/2023 HOME MONITOR AC Routine 10/29/2023 12:00 AM TURRET LATHE OPERATOR XR CHEST 1 VIEW PORTABLE STAT 10/25/2023 5:07 PM TURRET LATHE OPERATOR HOME MONITOR AC Routine 10/25/2023 12:00 AM TURRET LATHE OPERATOR SCAN-OPERATIVE/PROCED URE REPORT 10/25/2023 12:00 AM TURRET LATHE OPERATOR SCAN-CT INTERPRETATION 10/23/2023 12:00 AM TURRET LATHE OPERATOR HOME MONITOR AC Routine 10/18/2023 12:00 AM TURRET LATHE OPERATOR HOME MONITOR AC Routine 09/28/2023 12:00 AM TURRET LATHE OPERATOR HOME MONITOR AC Routine 09/20/2023 12:00 AM TURRET LATHE OPERATOR from Last 3 Months Results * (ABNORMAL) HOME MONITOR AC (12/10/2023 12:00 AM TURRET LATHE OPERATOR) Only the most recent of10 resultswithin the time period is included. PATIENT REPORTED HOME INR 1.7(L) 2.00 - 3.00 ALERE HOME MONITORING 12/10/2023 Franklin Squires MD OTHER ALE HOME MONITORING [address] [place] [address] * SCAN CORRESP-LABORATORY RESULTS (11/21/2023 3:07 PM TURRET LATHE OPERATOR) Scanner OTHER * (ABNORMAL) PROTIME-INR (11/21/2023 1:04 PM TURRET LATHE OPERATOR) [facility] INR 2.6(H) <1.3 11/21/2023 3:41 PM TURRET LATHE OPERATOR [facility] PROTIME 28.2(H) 10.3 - 12.3 sec 11/21/2023 3:41 PM TURRET LATHE OPERATOR [facility] Blood BLOOD SPECIMEN / Unknown Venipuncture / Unknown 11/21/2023 1:04 PM TURRET LATHE OPERATOR 11/21/2023 1:05 PM TURRET LATHE OPERATOR Narrative [facility] - 11/21/2023 3:41 PM TURRET LATHE OPERATOR ?Therapeutic Range 2.0-3.0 for most anticoagulated patients [...] Franklin Squires MD HEMATOLOGY Performing Organization Address City/[facility]/ZIP Co de Phone Number [facility] [address] [place] [id number] * HEMOGLOBIN A1C MONITORING (POCT) (11/21/2023 1:04 PM TURRET LATHE OPERATOR) Pathologist [facility] HEMOGLOBIN A1C MONITORING (POCT) 6.1 <=6.4 % 11/21/2023 1:12 PM TURRET LATHE OPERATOR [facility] Blood BLOOD SPECIMEN / Unknown Venipuncture / Unknown 11/21/2023 1:04 PM TURRET LATHE OPERATOR 11/21/2023 1:05 PM TURRET LATHE OPERATOR Narrative [facility] - 11/21/2023 1:12 PM TURRET LATHE OPERATOR ? (<=6.9%) ? Indicates good control ? (7.0% to 7.9%) ? Indicates fair control ? (>=8.0%) ? Indicates poor control ?? NOTE: ??These thresholds are guidelines and ?individual targets may vary. Falsely low levels may be seen with: Recent Transfusion, Recent Significant Blood Loss, Hemolytic Diseases, or Falsely elevated levels may be seen with: Untreated Anemias, Splenectomy ? Franklin Squires MD CHEMISTRY [facility] [address] [place] [address] * SCAN-LABORATORY REPORT (11/06/2023 12:00 AM TURRET LATHE OPERATOR) Scanner OTHER * INR,POCT (11/05/2023) Only the most recent of8 resultswithin the time period is included. Pathologist [facility] INR 2.[address] [facility] Blood BLOOD SPECIMEN / Unknown 11/05/2023 Patient Reported LABORATORY Performing Organization Address City/[facility]/ZIP Co de Phone Number [facility] [address] [place] [address] * SCAN-OPERATIVE/PROCEDURE REPORT (10/30/2023 12:00 AM TURRET LATHE OPERATOR) Scanner OTHER * XR CHEST 1 VIEW PORTABLE (10/25/2023 5:07 PM TURRET LATHE OPERATOR) Anatomical Region Laterality Modality HEART, THORAX, CHEST Digital Rad iography 10/25/2023 6:03 PM TURRET LATHE OPERATOR Impressions 10/25/2023 6:03 PM TURRET LATHE OPERATOR 1. Right PICC line is present with the tip at the cavoatrial junction. Dictated by Gordy Malik MD @ 10/25/2023 6:03:07 PM Dictated by: Gordy Malik MD @ 10/25/2023 18:03:23 (Electronically Signed) Narrative 10/25/2023 6:03 PM TURRET LATHE OPERATOR For Patients: ??As a result of the [...] IMAGING * SCAN-OPERATIVE/PROCEDURE REPORT (10/25/2023 12:00 AM TURRET LATHE OPERATOR) Narrative 10/25/2023 12:00 AM TURRET LATHE OPERATOR Ordered by an unspecified provider. Other Clinical Staff OTHER * SCAN-CT INTERPRETATION (10/23/2023 12:00 AM TURRET LATHE OPERATOR) Anatomical Region Laterality Modality Other Scanner OTHER [...] 12 months since positive culture): resides in acute/weight trainer care, receiving hemodialysis, has chronic open wounds/skin damage, has long-term percutaneous indwelling medical devices Exclusions for nares collection (if <12 months since positive culture) include all of the previous exclusions plus patients on antibiotics 7 days prior to collection 03/13/2018 2023 Advance Directives Documents on File Type Date Recorded Patient Development Intern Expl anation Healthcare Directive 05/09/2023 023 Healthcare [...] Status Discussion: Per Existing Order Care Teams Ham Passer Relationship Specialty Start Date End Date Franklin Squires MD [address] [facility] [place] [address] PCP - General Family Practice 10/18/15 Zelalem Cohen MD Physical Therapist 03/13/12 May Randle MD Physical Medicine and Rehabilitation 03/13/12 Luana, FAUSTINO Krueger [address] [facility] [place] [address] Vice President Of Talent Acquisition 05/03/17 Diane Charles MD [address] [facility] [place] [address] Surgery - Urology 01/17/23 Julia Ware, VALERIE [address] [facility] [place] [address] Registered Nurse 07/17/23
--- OUTSIDE RECORDS SUMMARY | 2023-12-16 12:43 | XMS_ITS | Clinical Summary ---
Author Name Unknown [facility] Address [address] [place] [address] Care Team Providers Care Cartoonist Special Effects Name Role Phone Franklin Squires MD Primary Care Provider [phone] Source Comments You are receiving this document as you are listed as the primary care provider,follow-up provider, or the patient has been referred to you for consultation.This is in compliance with the Medicare and[facility] Cent[facility]aid EHR Incentive Program,which states Providers who transition their patient to another setting of careor provider of care or refers their patient to another provider of care shouldprovide summary care record for each transition of care or referral. [facility] Allergies Active Allergy Reactions Criticality Noted Date [...] Comments Blood Pressure 120/63 01/18/2022 12:59 PM SAFETY DEPOSIT SUPERVISOR Pulse 87 01/18/2022 12:59 PM SAFETY DEPOSIT SUPERVISOR Temperature 36.3 ??C (97.4 ??F) 01/18/2022 12:59 [...] Services) 1945 Medicare Annual Wellness Visit 1945 Diabetes: HGBA1C 10/28/2014 07/29/2014 Zoster/Shingles (2 of 3) 01/11/2016 11/16/2015, 0501/2013 Diabetes: Creatinine 01/06/2017 01/06/2016, 06/07/2015, 10/21/2014, Additional history exists DTaP/Tdap/Td (2 - Tdap) 06/28/2021 06/28/2011 COVID-19 Vaccine ( season) 2023 08/06/2021, 01/25/2021, 01/02/2021 Influenza (#1) 2023 09/03/2021, 1007/2020, 08/20/2019, Additional [...] this topic Medical Devices Implanted Type Area Lawn Maintenance Worker Device Identifier Shelf Expiration Date Model / Serial / Lot [id number] 4ml Tisseel Explanted:([place] ntity not on file) BIOLOGIC N/A: NECK Lynne Fenwall 09/10/2011 [id number] / [id number] / [id number] Description:posterior Cath Intrathecal Indura - [id number] Implanted:Qty: 1 on 05/09/2010 at [facility] DEVICE Right: LUMBAR SPINE Motribe 01/18/2012 8709 / N/A / [id number] 5 Cath Intrathecal Indura - [id number] Implanted:Qty: 1 on 05/29/2010 at [facility] DEVICE Motribe 8709 / / Scr Indira Conic 7.3x80 - [id number] Implanted:Qty: 1 on 03/13/2011 at [facility] DEVICE Right: FEMUR DISTAL Synthes [employer] 02.207.28 0 / NONE / NONE Plt Lcp Cndl Rt 4.5x170 6h - [id number] Implanted:Qty: 1 on 03/13/2011 at [facility] DEVICE Right: FEMUR DISTAL [employer] 222.656 / NONE / NONE Description:6 hole 170mm rig ht 4.5mm lcp condylar plate Scr Didier Ss Sftp 4.5x40 - [id number] Implanted:Qty: 1 on 03/13/2011 at [facility] DEVICE Left: FEMUR DISTAL [employer] 214.840 / NONE / NONE Scr Didier Ss Sftp 4.5x50 - [id number] Implanted:Qty: 1 on 03/13/2011 at [facility] DEVICE Left: FEMUR DISTAL [employer] 214.850 / NONE / NONE Scr Indira Lk 5.0x80 - [id number] Implanted:Qty: 2 on 03/13/2011 at [facility] DEVICE Left: FEMUR DISTAL [employer] 02.205.08 0 / NONE / NONE Scr Indira Lk 5.0x85 - [id number] Implanted:Qty: 2 on 03/13/2011 at [facility] DEVICE Left: FEMUR DISTAL [employer] 02.205.08 5 / NONE / NONE Scr Lk Sftp T25 5.0x50 - [id number] Implanted:Qty: 1 on 03/13/2011 at [facility] DEVICE Left: FEMUR DISTAL [employer] 212.219 / NONE / NONE Scr Lk Sftp T25 5.0x60 - [id number] Implanted:Qty: 1 on 03/13/2011 at [facility] DEVICE Left: FEMUR DISTAL [employer] 212.221 / NONE / NONE Scr Indira Conic 7.3x85 - [id number] Implanted:Qty: 1 on 03/13/2011 at [facility] DEVICE Left: FEMUR DISTAL [employer] 02.207.28 5 / NONE / NONE Plt Lcp Cndl Lt 4.5x170 6h - [id number] Implanted:Qty: 1 on 03/13/2011 at [facility] DEVICE Left: FEMUR DISTAL [employer] 222.657 / NONE / NONE Description:6 hole 170mmleng th left 4.5mm lcp condylar plate. Scr Didier Sftp 3.5x60 F-Thrd - [id number] Implanted:Qty: 1 on 03/13/2011 at [facility] DEVICE Left: TIBIA PROXIMAL [employer] 204.860 / NONE / NONE Scr Star Lk Sftp 3.5x32 - [id number] Implanted:Qty: 1 on 03/13/2011 at [facility] DEVICE Left: TIBIA PROXIMAL [employer] 212.112 / NONE / NONE Scr Star Lk Sftp 3.5x55 - [id number] Implanted:Qty: 2 on 03/13/2011 at [facility] DEVICE Left: TIBIA PROXIMAL [employer] 212.123 / NONE / NONE Scr Star Lk Sftp 3.5x60 - [id number] Implanted:Qty: 2 on 03/13/2011 at [facility] DEVICE Left: TIBIA PROXIMAL [employer] 212.124 / NONE / NONE Plt Lcp M/Prox Lt 3.5x94 4h - [id number] Implanted:Qty: 1 on 03/13/2011 at [facility] DEVICE Left: TIBIA PROXIMAL [employer] 239.955 / NONE / NONE Scr Didier Ss Sftp 4.5x36 - [id number] Implanted:Qty: 1 on 03/13/2011 at [facility] DEVICE Right: FEMUR DISTAL [employer] 214.836 / NONE / NONE Scr Didier Ss Sftp 4.5x44 - [id number] Implanted:Qty: 1 on 03/13/2011 at [facility] DEVICE Right: FEMUR DISTAL [employer] 214.844 / NONE / NONE Scr Indira Lk 5.0x75 - [id number] Implanted:Qty: 1 on 03/13/2011 at [facility] DEVICE Right: FEMUR DISTAL [employer] 02.205.07 5 / NONE / NONE Scr Indira Lk 5.0x85 - [id number] Implanted:Qty: 2 on 03/13/2011 at [facility] DEVICE Right: FEMUR DISTAL [employer] 02.205.08 5 / NONE / NONE Scr Lk Sftp T25 5.0x44 - [id number] Implanted:Qty: 1 on 03/13/2011 at [facility] DEVICE Right: FEMUR DISTAL [employer] 212.216 / NONE / NONE Scr Lk Sftp T25 5.0x65 - [id number] Implanted:Qty: 1 on 03/13/2011 at [facility] DEVICE Right: FEMUR DISTAL [employer] 212.222 / NONE / NONE Plt Lp T Ti Str 4h - [id number] Implanted:Qty: 3 on 07/28/2014 by Cooper Shelley MD at [facility] DEVICE Right: SKULL [employer]ynthes [employer] 421.504 / / Scr Matrix Sfdr 4mm - [id number] Implanted:Qty: 6 on 07/28/2014 by Cooper Shelley MD at [facility] DEVICE Right: SKULL [employer] [place] 04.503.10 4.01 / / Lead Linear 3-4 8 Contact 50cm - [id number] Implanted:Qty: 1 on 03/08/2016 by Zelalem Cohen DO at [facility] DEVICE N/A: OTHER-SEE DESCRIPTION [facility] 09/10/2017 [id number] 2500 / / [id number] Description:LUMBAR Lead Linear 3-4 8 Contact 50cm - [id number] Implanted:Qty: 1 on 03/08/2016 by Zelalem Cohen DO at [facility] DEVICE N/A: OTHER-SEE DESCRIPTION [facility] 09/10/2017 [id number] 2500 / / [id number] Description:LUMBAR Lead Linear 3-4 8 Contact 50cm - [id number] Implanted:Qty: 1 on 03/08/2016 by Zelalem Cohen DO at [facility] DEVICE N/A: OTHER-SEE DESCRIPTION [facility] 09/10/2017 [id number] 2500 / / [id number] Description:LUMBAR Lead Linear 3-4 8 Contact 50cm - [id number] Implanted:Qty: 1 on 03/08/2016 by Zelalem Cohen DO at [facility] DEVICE N/A: OTHER-SEE DESCRIPTION [facility] 09/10/2017 [id number] 2500 / / [id number] Description:LUMBAR Lead Linear 3-4 8 Contact 50cm - [id number] Implanted:Qty: 1 on 05/24/2016 by Zelalem Cohen DO at [facility] DEVICE N/A: SPINE LUMBAR POSTERIOR [facility] 01/31/2018 [id number] 2500 / [id number] / Lead Linear 3-4 8 Contact 50cm - [id number] Implanted:Qty: 1 on 05/24/2016 by Zelalem Cohen DO at [facility] DEVICE N/A: SPINE LUMBAR POSTERIOR [facility] 04/26/2018 [id number] 2500 / [id number] / Lead Linear 3-4 8 Contact 50cm - [id number] Implanted:Qty: 1 on 05/24/2016 by Zelalem Cohen DO at [facility] DEVICE N/A: SPINE LUMBAR POSTERIOR [facility] 04/26/2018 [id number] 2500 / [id number] / Lead Linear 3-4 8 Contact 50cm - [id number] Implanted:Qty: 1 on 05/24/2016 by Zelalem Cohen DO at [facility] DEVICE N/A: SPINE LUMBAR POSTERIOR [facility] 04/26/2018 [id number] 2500 / [id number] / Generator Pulse Spectra - [id number] Implanted:Qty: 1 on 05/24/2016 by Zelalem Cohen DO at [facility] DEVICE N/A: SPINE LUMBAR POSTERIOR [facility] 05/08/2018 [id number] 20 / [id number] / [id number] [place] [employer] - [id number] Implanted:Qty: 1 on 05/24/2016 by Zelalem Cohen DO at [facility] DEVICE N/A: SPINE LUMBAR POSTERIOR [facility] 05/02/2018 [id number] 60 / / [id number] [place] Clik - [id number] Implanted:Qty: 1 on 05/24/2016 by Zelalem Cohen DO at [facility] DEVICE N/A: SPINE LUMBAR POSTERIOR [facility] 02/28/2018 [id number] 60 / / [id number] Advance Directives Latest Code Status on File [...] 5:44 PM 07/28/2014 6:50 PM Care Teams Cartoonist Special Effects Relationship Specialty Start Date End Date Franklin Squires MD [address] [facility] [place] [address] PCP - General Family Practice 03/08/16
--- OUTSIDE RECORDS SUMMARY | 2023-12-16 12:43 | XMS_ITS ---
Author Name Unknown [facility] Address [address] [address] Care Team Providers Care Elementary School Band Director Name Role Phone Franklin Squires MD Primary Care Provider [phone] Active Problems Problem Noted Date Diagnosed Date [...] 0 06/10/2014 History of anticoagulant therapy 02/17/2014 nursing home current use of anticoagulant therapy 0 02/17/2014 [...] treatments are documented for this patient in [facility]. Treatments may have been administered in another system. Resolved Problems Problem Noted Date Diagnosed Date Resolved Date Gait abnormality 01/17/2012 02/09/2015 Back pain 01/17/2012 02/09/2015 Paraplegia 04/04/2011 02/09/2015 Osteoporosis 03/06/2011 02/09/2015 Urinary tract infection 12/24/200603/11
--- OUTSIDE RECORDS SUMMARY | 2023-12-16 12:43 | XMS_ITS | Encounter Summary ---
Author Name Unknown Organization [facility] Address [address], [place] [address] Care Team Providers Care Carpentry Professional Name Role Phone Franklin Squires MD Primary Care Provider Encounter Details Date Type Department Care Team Description 11/23/2015 Correspondence External to External, [place] [address] LETTER [facility] Social History Tobacco Use [...] on filedocumented in this encounter Care Teams Carpentry Professional Relationship Specialty Start Date End Date Franklin Squires MD 100 [facility] [place] [address] PCP - General Family Practice 03/08/16 documented as of this encounter
--- OUTSIDE RECORDS SUMMARY | 2023-12-16 12:43 | XMS_ITS | Encounter Summary ---
Author Name Unknown Organization [facility] Address [address], [place] [address] Care Team Providers Care Roll Grinder Name Role Phone Franklin Squires MD Primary Care Provider Encounter Details Date Type Department Care Team Description 12/11/2017 Correspondence [facility] Physical Medicine [address] [facility]. [place], [place] [id number] May Randle MD [address] [place] [address] [employer]I [employer]Y Social History Tobacco Use [...] on filedocumented in this encounter Care Teams Roll Grinder Relationship Specialty Start Date End Date Franklin Squires MD 100 [facility] [place] [address] PCP - General Family Practice 03/08/16 documented as of this encounter
--- OUTSIDE RECORDS SUMMARY | 2023-12-16 12:43 | XMS_ITS | Encounter Summary ---
Author Name Unknown Organization [facility] Address [address] [place] [address] Care Team Providers Care Beam Dyer Recessed Vat Name Role Phone Franklin Squires MD Primary [...] on filedocumented in this encounter Care Teams Beam Dyer Recessed Vat Relationship Specialty Start Date End Date Franklin Squires MD [address] [place], [place] [address] [address] PCP - General Family Practice 03/08/16 documented as of this encounter
--- OUTSIDE RECORDS SUMMARY | 2023-12-16 12:43 | XMS_ITS | Encounter Summary ---
Author Name Unknown Organization [facility] Address [address] [place] [address] Care Team Providers Care Newsagent Name Role Phone Franklin Squires MD Primary [...] on filedocumented in this encounter Care Teams Newsagent Relationship Specialty Start Date End Date Franklin Squires MD [address] [place], [place] [address] [address] PCP - General Family Practice 03/08/16 documented as of this encounter
--- OUTSIDE RECORDS SUMMARY | 2023-12-16 12:43 | XMS_ITS | Encounter Summary ---
Author Name Unknown Organization [facility] Address [address], [place] [address] Care Team Providers Care Mime Artist Name Role Phone Franklin Squires MD Primary Care Provider Encounter Details Date Type Department Care Team Description 02/09/2016 Correspondence [facility] 401 NeuroSurgery [address] [facility]. [place], [place] [id number] Jodi Aguila PA-C [address] [place] [address] PATIENT LIFT PRESCRIPTION Social History Tobacco Use [...] on filedocumented in this encounter Care Teams Mime Artist Relationship Specialty Start Date End Date Franklin Squires MD 100 [facility] [address] PCP - General Family Practice 03/08/16 documented as of this encounter
--- OUTSIDE RECORDS SUMMARY | 2023-12-16 12:44 | XMS_ITS | Encounter Summary ---
Author Name Unknown Organization [facility] Address [address] [place] [address] Care Team Providers Care Warehouse Shipping Supervisor Name Role Phone Franklin Squires MD Primary Care Provider Encounter Details Date Type Department Care Team Description 08/22/2014 Outside Hospital External to [facility] HOSP-D/C SUMMARY Social History Tobacco Use [...] on filedocumented in this encounter Care Teams Warehouse Shipping Supervisor Relationship Specialty Start Date End Date Franklin Squires MD 100 [facility] [place] [address] PCP - General Family Practice 03/08/16 documented as of this encounter
--- OUTSIDE RECORDS SUMMARY | 2023-12-16 12:44 | XMS_ITS | Encounter Summary ---
Author Name Unknown Organization [facility] Address [address] [address] Care Team Providers Care Woodworking Machine Offbearer Name Role Phone Franklin Squires MD Primary Care Provider [phone] Encounter Details Date Type Department Care Team Description 07/08/2015 Correspondence [facility] Physical Therapy [address] [place] [address] Trudi Raymundo, PT [address] [place] [address] ADDENDUM FOR LETTER OF MEDICAL NECESSITY Social [...] on filedocumented in this encounter Care Teams Woodworking Machine Offbearer Relationship Specialty Start Date End Date Franklin Squires MD 100 [facility] [place] [address] PCP - General Family Practice 03/08/16 documented as of this encounter
--- OUTSIDE RECORDS SUMMARY | 2023-12-16 12:44 | XMS_ITS | Encounter Summary ---
Author Name Unknown Organization [facility] Address [address] [place] [address] Care Team Providers Care Integration Software Engineer Name Role Phone Franklin Squires MD Primary Care Provider Encounter Details Date Type Department Care Team Description 06/04/2014 Correspondence [facility] 401 Interventional Pain Management 401 [place] [address] Zelalem Cohen, DO [address] [place] [address] MEDICAID PT INFORMATION EMPI RECOVERY Social History [...] on filedocumented in this encounter Care Teams Integration Software Engineer Relationship Specialty Start Date End Date Franklin Squires MD 100 [facility] [place] [address] PCP - General Family Practice 03/08/16 documented as of this encounter
--- OUTSIDE RECORDS SUMMARY | 2023-12-16 12:44 | XMS_ITS | Encounter Summary ---
Author Name Unknown Organization [facility] Address [address], [place] [address] Care Team Providers Care College Or University Faculty Member Name Role Phone Franklin Squires MD Primary Care Provider Encounter Details Date Type Department Care Team Description 11/10/2014 Correspondence [facility] Physical Therapy [address] [place] [address] Trudi Raymundo, PT [address] [place] [address] LETTER OF MEDICAL NECESSITY Social History Tobacco [...] on filedocumented in this encounter Care Teams College Or University Faculty Member Relationship Specialty Start Date End Date Franklin Squires MD 100 [facility] [address] PCP - General Family Practice 03/08/16 documented as of this encounter
--- OUTSIDE RECORDS SUMMARY | 2023-12-16 12:44 | XMS_ITS | Encounter Summary ---
Author Name Unknown Organization [facility] Address [address] [place] [address] Care Team Providers Care Manager Welding Name Role Phone Franklin Squires MD Primary [...] filedocumented in this encounter Care Teams Manager Welding Relationship Specialty Start Date End Date Franklin Squires MD 100 [facility] [place] [address] PCP - General Family Practice 03/08/16 documented as of this encounter
--- OUTSIDE RECORDS SUMMARY | 2023-12-16 12:44 | XMS_ITS | Encounter Summary ---
Author Name Unknown Organization [facility] Address [address] [address] Care Team Providers Care Measurement Psychologist Name Role Phone Franklin Squires MD Primary [...] on filedocumented in this encounter Care Teams Measurement Psychologist Relationship Specialty Start Date End Date Franklin Squires MD 100 [facility] [place] [address] PCP - General Family Practice 03/08/16 documented as of this encounter
--- OUTSIDE RECORDS SUMMARY | 2023-12-16 12:44 | XMS_ITS | Encounter Summary ---
Author Name Unknown Organization [facility] Address [address] [address] Care Team Providers Care Real Estate Sales Agent Name Role Phone Franklin Squires MD Primary Care Provider [phone] Encounter Details Date Type Department Care Team Description 12/16/2013 Correspondence [facility] Radiology [address] [place] [address] Radiology, Provider MRI SAFETY SHEET AND COMPATIBILITY [...] Radiology, Provider - 12/16/2013 12:00 AM CST TECHNICAL LEAD documented in this encounter Plan of Treatment Not on file documented as of this encounter Visit Diagnoses Not on filedocumented in this encounter Care Teams Real Estate Sales Agent Relationship Specialty Start Date End Date Franklin Squires MD 100 [facility] [place] [address] PCP - General Family Practice 03/08/16 documented as of this encounter
--- OUTSIDE RECORDS SUMMARY | 2023-12-16 12:44 | XMS_ITS | Encounter Summary ---
Author Name Unknown Organization [facility] Address [address] [address] Care Team Providers Care Donor Relations Associate Name Role Phone Franklin Squires MD Primary Care Provider [phone] Encounter Details Date Type Department Care Team Description 07/28/2014 Outside Hospital External to External, Provider No address [address] ER VISIT/TRANSFER Social History Tobacco Use [...] in this encounter Care Teams Donor Relations Associate Relationship Specialty Start Date End Date Franklin Squires MD [address] [place] [address] [place] [address] PCP - General Family Practice 03/08/16 documented as of this encounter
--- OUTSIDE RECORDS SUMMARY | 2023-12-16 12:44 | XMS_ITS | Encounter Summary ---
Author Name Unknown Organization [facility] Address [address] [address] Care Team Providers Care Detailer Furniture Name Role Phone Franklin Squires MD Primary Care Provider Encounter Details Date Type Department Care Team Description 11/13/2012 Correspondence [facility] Radiology [address] [place] [address] Radiology, Provider MRI SAFETY SHEET AND COMPATIBILITY [...] RADIOLOGY, PROVIDER - 11/13/2012 12:00 AM CST S OFFICE ADMINISTRATOR documented in this encounter Plan of Treatment Not on file documented as of this encounter Visit Diagnoses Not on filedocumented in this encounter Care Teams Detailer Furniture Relationship Specialty Start Date End Date Franklin Squires MD 100 [facility] [place] [address] PCP - General Family Practice 03/08/16 documented as of this encounter
--- OUTSIDE RECORDS SUMMARY | 2023-12-16 12:44 | XMS_ITS | Encounter Summary ---
Author Name Unknown Organization [facility] Address [address], [place] [address] Care Team Providers Care Game Agent Name Role Phone Franklin Squires MD Primary Care Provider Encounter Details Date Type Department Care Team Description 04/20/2013 Correspondence [facility] Radiology [address] [place] [address] Radiology, Provider MRI SAFETY SHEET AND COMPATIBILITY [...] on filedocumented in this encounter Care Teams Game Agent Relationship Specialty Start Date End Date Franklin Squires MD 100 [facility] [place] [address] PCP - General Family Practice 03/08/16 documented as of this encounter
--- OUTSIDE RECORDS SUMMARY | 2023-12-16 12:44 | XMS_ITS | Encounter Summary ---
Author Name Unknown Organization [facility] Address [address] [address] Care Team Providers Care Resource Recovery Specialist Name Role Phone Franklin Squires MD Primary Care Provider Encounter Details Date Type Department Care Team Description 12/14/2014 Correspondence [facility] 401 Physical Medicine 401 [facility] [place] [address] May Randle MD [address] [place] [address] DETAILED PRODUCT DESCRIPTION Social History Tobacco Use [...] on filedocumented in this encounter Care Teams Resource Recovery Specialist Relationship Specialty Start Date End Date Franklin Squires MD 100 [facility] [place] [address] PCP - General Family Practice 03/08/16 documented as of this encounter
--- OUTSIDE RECORDS SUMMARY | 2023-12-16 12:44 | XMS_ITS | Encounter Summary ---
Author Name Unknown Organization [facility] Address [address] [place] [address] Care Team Providers Care Leasing Agent Name Role Phone Franklin Squires MD Primary Care Provider [phone] Encounter Details Date Type Department Care Team Description 09/17/2013 Correspondence External to External, [place] [address] EMPOWERMENT RULES Social History Tobacco Use Types [...] External, Provider - 09/17/2013 12:00 AM CST ED GOODS CONTROLS OPERATOR documented in this encounter Plan of Treatment Not on file documented as of this encounter Visit Diagnoses Not on filedocumented in this encounter Care Teams Leasing Agent Relationship Specialty Start Date End Date Franklin Squires MD 100 [facility] [place] [address] PCP - General Family Practice 03/08/16 documented as of this encounter
--- OUTSIDE RECORDS SUMMARY | 2023-12-16 12:44 | XMS_ITS | Encounter Summary ---
Author Name Unknown Organization [facility] Address [address] [address] Care Team Providers Care Combine Mechanic Name Role Phone Franklin Squires MD Primary Care Provider [phone] Encounter Details Date Type Department Care Team Description 05/04/2014 Correspondence [facility] 401 Physical Medicine 401 [facility] [place], [place] [id number] May Randle MD [address] [place] [address] LETTER OF MEDICAL NECESSITY FOR A WHEELCHAIR [...] on filedocumented in this encounter Care Teams Combine Mechanic Relationship Specialty Start Date End Date Franklin Squires MD 100 [facility] [place] [address] PCP - General Family Practice 03/08/16 documented as of this encounter
--- OUTSIDE RECORDS SUMMARY | 2023-12-16 12:44 | XMS_ITS | Encounter Summary ---
Author Name Unknown Organization [facility] Address [address], [place] [address] Care Team Providers Care Fruit Stuffer Name Role Phone Franklin Squires MD Primary Care Provider [phone] Encounter Details Date Type Department Care Team Description 06/11/2014 [facility] 401 Physical Medicine 401 [facility] [place] [address] May Randle MD [address] [place] [address] [facility] Social History Tobacco [...] on filedocumented in this encounter Care Teams Fruit Stuffer Relationship Specialty Start Date End Date Franklin Squires MD 100 [facility] [place] [address] PCP - General Family Practice 03/08/16 documented as of this encounter
--- OUTSIDE RECORDS SUMMARY | 2023-12-16 12:44 | XMS_ITS | Encounter Summary ---
Author Name Unknown Organization [facility] Address [address] [address] Care Team Providers Care Executive Secretary Name Role Phone Franklin Squires MD Primary Care Provider Encounter Details Date Type Department Care Team Description 04/24/2012 Correspondence [facility] Radiology [address] [place] [address] Radiology, Provider MRI SAFETY SHEET AND COMPATIBILITY [...] on filedocumented in this encounter Care Teams Executive Secretary Relationship Specialty Start Date End Date Franklin Squires MD 100 [facility] [place] [address] PCP - General Family Practice 03/08/16 documented as of this encounter
--- OUTSIDE RECORDS SUMMARY | 2023-12-16 12:44 | XMS_ITS | Encounter Summary ---
Author Name Unknown Organization [facility] Address [address] [address] Care Team Providers Care Pilot Fuel Engineer Name Role Phone Franklin Squires MD Primary Care Provider [phone] Encounter Details Date Type Department Care Team Description 02/05/2014 Correspondence [facility] Physical Therapy [address] [place] [address] Trudi Raymundo, PT [address] [place] [address] LETTER OF MEDICAL NECESSITY FOR A WHEELCHAIR [...] on filedocumented in this encounter Care Teams Pilot Fuel Engineer Relationship Specialty Start Date End Date Franklin Squires MD 100 [facility] [place] [address] PCP - General Family Practice 03/08/16 documented as of this encounter
--- OUTSIDE RECORDS SUMMARY | 2023-12-16 12:44 | XMS_ITS | Encounter Summary ---
Author Name Unknown Organization [facility] Address [address] [place] [address] Care Team Providers Care Professor/Nurse Anesthetist Name Role Phone Franklin Squires MD Primary Care Provider Encounter Details Date Type Department Care Team Description 01/08/2013 Scanned History External to Transferred Record, Provider [facility] Social History Tobacco Use Types Packs/Day [...] on filedocumented in this encounter Care Teams Professor/Nurse Anesthetist Relationship Specialty Start Date End Date Franklin Squires MD 100 [facility] [place] [address] PCP - General Family Practice 03/08/16 documented as of this encounter
--- OUTSIDE RECORDS SUMMARY | 2023-12-16 12:44 | XMS_ITS | Encounter Summary ---
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
--- OUTSIDE RECORDS SUMMARY | 2023-12-16 12:44 | XMS_ITS | Encounter Summary ---
Author Name Unknown Organization [facility] Address [address], [place] [address] Care Team Providers Care Coding Compliance Specialist Name Role Phone Franklin Squires MD Primary Care Provider Encounter Details Date Type Department Care Team Description 03/11/2014 [facility] 401 Interventional Pain Management 401 [facility] [place] [address] Zelalem Cohen, DO [address] [place] [address] [facility] Social History Tobacco Use Types Packs/Day [...] on filedocumented in this encounter Care Teams Coding Compliance Specialist Relationship Specialty Start Date End Date Franklin Squires MD 100 [facility] [place] [address] PCP - General Family Practice 03/08/16 documented as of this encounter
--- OUTSIDE RECORDS SUMMARY | 2023-12-16 12:44 | XMS_ITS | Encounter Summary ---
Author Name Unknown Organization [facility] Address [address] [address] Care Team Providers Care Comber Setter Name Role Phone Franklin Squires MD Primary Care Provider Encounter Details Date Type Department Care Team Description 06/07/2015 Correspondence [facility] Radiology [address] [place] [address] Radiology, Provider MRI SAFETY SHEET AND COMPATIBILITY [...] on filedocumented in this encounter Care Teams Comber Setter Relationship Specialty Start Date End Date Franklin Squires MD 100 [facility] [place] [address] PCP - General Family Practice 03/08/16 documented as of this encounter
--- OUTSIDE RECORDS SUMMARY | 2023-12-16 12:44 | XMS_ITS | Encounter Summary ---
Author Name Unknown Organization [facility] Address [address] [place] [address] Care Team Providers Care Land Lease Information Clerk Name Role Phone Franklin Squires MD Primary Care Provider [phone] Encounter Details Date Type Department Care Team [...] on filedocumented in this encounter Care Teams Land Lease Information Clerk Relationship Specialty Start Date End Date Franklin Squires MD [address] [place], [place] [address] [address] PCP - General Family Practice 03/08/16 documented as of this encounter
--- OUTSIDE RECORDS SUMMARY | 2023-12-16 12:44 | XMS_ITS | Encounter Summary ---
Author Name Unknown Organization [facility] Address [address], [place] [address] Care Team Providers Care Ham Marker Name Role Phone Franklin Squires MD Primary Care Provider Encounter Details Date Type Department Care Team Description 09/07/2014 Correspondence [facility] Radiology [address] [place] [address] Radiology, Provider MRI SAFETY SHEET AND COMPATIBILITY [...] on filedocumented in this encounter Care Teams Ham Marker Relationship Specialty Start Date End Date Franklin Squires MD 100 [facility] [place] [address] PCP - General Family Practice 03/08/16 documented as of this encounter
--- OUTSIDE RECORDS SUMMARY | 2023-12-16 12:44 | XMS_ITS | Encounter Summary ---
Author Name Unknown Organization [facility] Address [address] [place] [address] Care Team Providers Care Cash Room Clerk Name Role Phone Franklin Squires MD Primary Care Provider Encounter Details Date Type Department Care Team Description 08/20/2014 Outside Hospital External to [facility] Social History Tobacco [...] on filedocumented in this encounter Care Teams Cash Room Clerk Relationship Specialty Start Date End Date Franklin Squires MD [address] [facility] [place] [address] PCP - General Family Practice 03/08/16 documented as of this encounter
--- OUTSIDE RECORDS SUMMARY | 2023-12-16 12:44 | XMS_ITS | Encounter Summary ---
Author Name Unknown Organization [facility] Address [address] [place] [address] Care Team Providers Care Location Manager Name Role Phone Franklin Squires MD Primary Care Provider Encounter Details Date Type Department Care Team Description 08/20/2014 Outside Hospital External to [facility] H/P Social History Tobacco [...] on filedocumented in this encounter Care Teams Location Manager Relationship Specialty Start Date End Date Franklin Squires MD 100 [facility] [place] [address] PCP - General Family Practice 03/08/16 documented as of this encounter
--- OUTSIDE RECORDS SUMMARY | 2023-12-16 12:44 | XMS_ITS | Encounter Summary ---
Author Name Unknown Organization [facility] Address [address] [place] [address] Care Team Providers Care Lining Presser Name Role Phone Franklin Squires MD Primary Care Provider [phone] Encounter Details Date Type Department Care Team Description 07/23/2013 [facility] 401 Interventional Pain Management 401 [facility] 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
== END 2023-12-16 12:40 | disposition home or self-care (01) ==
LOC: WOUND 12:40
PROVIDERS: PCP Family Medicine; Visit Provider Nurse Practitioner Family
DX: E11.622 Type 2 diabetes mellitus with other skin ulcer (principal); L89.324 Pressure ulcer of left buttock, stage 4; G82.50 Quadriplegia, unspecified
CPT/HCPCS: 11042; 97605

== ENCOUNTER 2023-12-23 12:36 | Outpatient (CLI) | payer MEDICARE, OTHER, SELFPAY ==
--- OUTSIDE RECORDS SUMMARY | 2023-12-23 12:38 | XMS_ITS | Continuity of Care Document ---
Author Name [facility] Organization [facility] Care Team Providers Care Video Intern Name Role Phone [facility] Unavailable Unavailable Problems Combined list of problems from 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 It does not include entries that were removed or entered in error. Problem Status Onset Date Problem Type Date of Resolution Comments Source Abnormal liver function Active Condition [facility] Anemia ([facility] 781550218) Active Condition [facility] Anxiety ([facility] 53903252) Active Condition [facility] Autonomic dysreflexia Active [facility] Chronic Pain Syndrome ([facility] 482881762) Active Condition [facility] Colostomy present Active Condition [facility] Constipation ([facility] 12486654) Active Condition [facility] Continuous opioid dependence Active [facility] COPD - Chronic Obstructive Pulmonary Disease ([facility] 16252898) Active Condition [facility] Dementia Active Condition [facility] Depression ([facility] 43481886) Active Condition [facility] Diabetes Mellitus Type 2 ([facility] 49613506) Active Condition [facility] Ependymoma of spinal cord Active Condition [facility] Hearing Loss ([facility] 63490369) Active Condition [facility] History of Deep Vein Thrombosis ([facility] 917511374) Active Condition [facility] History of pressure injury Active Condition [facility] HTN - Hypertension ([facility] 07143731) Active Condition [facility] Hyperlipidemia ([facility] 24518501) Active Condition [facility] Hyponatremia Active [facility] Long-term current use of anticoagulant Active Condition [facility] Neurogenic Bladder ([facility] 387221674) Active Condition [facility] Neurogenic bowel Active Condition [facility] Osteoporosis ([facility] 13947267) Active Condition [facility] Paraplegia Active Condition [facility] Spasticity Active Condition [facility] Suprapubic urinary catheter in situ Active Condition [facility] Supraventricular tachycardia Active Condition [facility] Tinnitus ([facility] 57658838) Active Condition [facility] Vitamin D Deficiency ([facility] 6543725) Active Condition [facility] Diagnosis: ICD-10-CM Z73.6 Limitation of activities due to disability Active Diagnosis [facility] Diagnosis: ICD-10-CM G82.20 Paraplegia, unspecified Active Diagnosis [facility] Diagnosis: ICD-10-CM Z43.3 Encounter for attention to colostomy Active Diagnosis [facility] Diagnosis: ICD-10-CM Z71.3 Dietary counseling and surveillance Active Diagnosis [facility] Diagnosis: ICD-10-CM F32.A Depression, unspecified Active Diagnosis [facility] Diagnosis: ICD-10-CM R26.9 Unspecified abnormalities of gait and mobility Active Diagnosis [facility] Diagnosis: ICD-10-CM R54 Age-related physical debility Active Diagnosis [facility] Diagnosis: ICD-10-CM C72.0 Malignant neoplasm of spinal [...] DAY NEEDED ORALLY ACTIVE Jagdish BARRETT 2022 [facility] AMLODIPINE BESYLATE (AMLODIPINE BESYLATE), 5 MG, TABLET, ORAL, [employer] 1000 ea. BOTTLE Active [id number] 2023 Pharmac y [facility] [employer] y AMLODIPINE BESYLATE 2.5MG TAB TAKE TWO TABLETS BY MOUTH EVERY MORNING ORALLY ACTIVE Jagdish BARRETT 2022 [facility] AMOX TR-POTASSIU M CLAVULANATE (AMOXICILLI N/POTASSIUM CLAV), 875-125 MG, TABLET, ORAL, [employer], 20 ea. BOTTLE Active [id number] 2022 Pharmac y [facility] Trans[facility] t[employer] y AMOXICILLIN -CLAVULANAT E POTASS (amoxicilli n/potassium clavulanate ), 875-125 MG, TABLET, ORAL, [facility],, 20 ea. BOTTLE Active [id number] 2023 Pharmac y [employer] Transac tion Service [facility]ilit y ARIPIPRAZOL E (aripiprazo le), 2 MG, TABLET, ORAL, [facility], 500 ea. BOTTLE Active [id number] 2023 Pharmac y [employer] Trans[employer] t[employer] [facility] y ARIPIPRAZOL E TAB TAKE 2MG BY MOUTH TWICE A DAY ORALLY ACTIVE Jey HANSON 2021 [facility] ATORVASTATI N CA 80MG TAB TAKE ONE-HALF TABLET BY MOUTH EVERY DAY ORALLY ACTIVE Jey HANSON 2021 [facility] BACLOFEN (baclofen), 20 MG, TABLET, ORAL, [facility] 1000 ea. BOTTLE Active [id number] 2023 Pharmac y [employer] Trans[employer] t[employer] Service [facility] y BACLOFEN 20MG TAB TAKE TWO TABLETS BY MOUTH THREE TIMES A DAY ORALLY ACTIVE Jagdish BARRETT 2022 [facility] BUPROPION HCL 150MG 12HR TAB,SA TAKE ONE [...] ORAL, [facility], 50 ea. BOTTLE Active [id number] 2023 Pharmac y Data Transac tion Service [employer]ilit y DONEPEZIL HCL (DONEPEZIL HCL), 5 MG, TABLET, ORAL, [employer] 1000 ea. BOTTLE Cancele d [id number] : 2023 Pharmac y Data Transac tion Service [employer]ilit y DONEPEZIL HCL (DONEPEZIL HCL), 5 MG, TABLET, ORAL, [employer] 1000 ea. BOTTLE Active [id number] 2023 Pharmac y [employer] Transac t[employer] Service [facility] y DONEPEZIL HCL 10MG TAB TAKE ONE-HALF TABLET BY MOUTH EVERY DAY ORALLY ACTIVE Jey HANSON M 2021 [facility] DULOXETINE HCL 30MG CAP,EC TAKE 2 CAPSULES BY MOUTH TWICE A DAY ORALLY ACTIVE Jey HANSON M 2021 [facility] FAMOTIDINE 20MG TAB TAKE ONE TABLET BY MOUTH TWICE A DAY ORALLY ACTIVE Jey HANSON M 2021 [facility] FUROSEMIDE 40MG TAB TAKE ONE TABLET BY MOUTH TWICE A DAY ORALLY ACTIVE MARGIE,Jey BASURTO M 2021 [facility] GABAPENTIN (gabapentin ), 400 MG, CAPSULE, ORAL, [employer] 500 ea. BOTTLE Active [id number] 2023 Pharmac y [facility] t[facility] Service [facility] y GABAPENTIN 400MG CAP TAKE 1 CAPSULE BY MOUTH THREE TIMES A DAY ORALLY ACTIVE Jey HANSON M 2021 [facility] LORAZEPAM (lorazepam) , 0.5 MG, TABLET, ORAL, [facility], 1000 ea. BOTTLE Active [id number] 3 2023 Pharmac y Data Transac tion Service Facilit y LORAZEPAM 0.5MG TAB TAKE ONE TABLET BY MOUTH THREE TIMES A DAY AND TAKE TWO TABLETS BY MOUTH AT BEDTIME ORALLY ACTIVE Jagdish BARRETT 2022 [facility] MILK OF MAGNESIA TAKE 30ML BY MOUTH EVERY DAY NEEDED ORALLY ACTIVE Jey HANSON M 2021 [facility] MULTIVITAMI NS CAP/TAB TAKE ONE TABLET BY MOUTH EVERY DAY ORALLY ACTIVE Jey HANSON M 2021 [facility] NALOXONE HCL 4MG/SPRAY SOLN,SPRAY, NASAL SPRAY 1 DOSE IN ONE NOSTRIL DIRECTED PRN NOSTRI L ACTIVE Jagdish BARRETT 2022 [facility] OXYCODONE HCL (OXYCODONE HCL), 10 MG, TABLET, ORAL, [employer] 100 ea. BOTTLE Active [id number] 2023 Pharmac y Data Transac tion Service [facility]ilit y OXYCODONE HCL (OXYCODONE HCL), 10 MG, TABLET, ORAL, [employer] 100 ea. BOTTLE Active [id number] 2022 Pharmac y Data Transac tion Service [facility]ilit y OXYCODONE HCL 5MG TAB TAKE TWO TABLETS BY MOUTH FOUR TIMES A DAY ORALLY ACTIVE Jagdish BARRETT 2022 [facility] POTASSIUM CHLORIDE (potassium chloride), 20 MEQ, TAB ER PRT, ORAL, [facility], 100 ea. BOTTLE Active [id number] 2023 Pharmac y Data Transac tion Service Facilit y POTASSIUM CHLORIDE 20MEQ TAB,SA (DISPERSIBL E) TAKE ONE TABLET BY MOUTH TWICE A DAY ORALLY ACTIVE Jey HANSON 2021 [facility] CBTATI SANTYL (collagenas e Clostridium histolyticu m), 250 UNIT/G, OINT. (G), TOPICAL, WHITLOCK&N/UNI LUIS, 30 g TUBE Cancele d [id number] : 2023 Pharmac y Data Transac tion Service [facility]ilit y WARFARIN SODIUM (warfarin sodium), 5 MG, TABLET, ORAL, [employer] 1000 ea. BOTTLE Cancele d [id number] : 2022 Pharmac y Data Transac tion Service Facilit y WARFARIN SODIUM (WARFARIN SODIUM), 5 MG, TABLET, ORAL, [employer], 1000 ea. BOTTLE Active [id number] 2023 Pharmac y Data Transac tion Service Facilit y WARFARIN SODIUM (WARFARIN SODIUM), 5 MG, TABLET, ORAL, [employer], 1000 ea. BOTTLE Cancele d [id number] : 2022 Pharmac y Data Transac tion Service Facilit y WARFARIN SODIUM (warfarin sodium), 7.5 MG, TABLET, ORAL, [employer], 100 ea. BOTTLE Active [id number] 2023 Pharmac y Data Transac tion Service Facilit y WARFARIN TAB TAKE 5MG BY MOUTH SUN/THUR S AND TAKE 7.5MG BY MOUTH ALL OTHER DAYS ORALLY ACTIVE Jagdish BARRETT 2022 [facility] Allergies, Adverse Reactions, Alerts Combined list of allergies from Department of [facility] and [facility] facilities. It does not include entries that were removed or entered in error. Substance Category Reaction Severity Reaction type Status Date Reported Comments Source AMOXICILLIN Propensity to adverse reactions to drug (finding) Eruption active 2 [facility] METOLAZONE Propensity to adverse reactions to drug (finding) Itching active 2 [facility] MORPHINE Propensity to adverse reactions to drug (finding) Delirium active 2 [facility] PIPERACILLIN Propensity to adverse reactions to drug (finding) Eruption active 2 [facility] SULFA DRUGS Propensity to adverse reactions to drug (finding) Eruption active 2 [facility] TAZOBACTAM SODIUM Propensity to adverse reactions to drug (finding) Eruption active 2 [facility] Immunizations Combined list of available immunizations from the Department of [facility] and [facility] facilities. Immunization Series Date Given Administered By Site Reaction Lot Number CVX Code Drug Retail Attendant Status Comments Source INFLUENZA, UNSPECIFIED FORMULATION 2021 88 complet ed 's recall [facility] TD (ADULT), 5 LF TETANUS TOXOID, PRESERVATIVE FREE, ADSORBED 2021 113 complet ed [facility] INFLUENZA, UNSPECIFIED FORMULATION 2020 88 complet ed [facility] COVID-19 (PFIZER), MRNA, LNP-S, PF, 30 MCG/0.3 ML DOSE 3 2020 208 complet ed [facility] COVID-19 (PFIZER), MRNA, LNP-S, PF, 30 MCG/0.3 ML DOSE 2 2020 208 complet ed [facility] COVID-19 (PFIZER), MRNA, LNP-S, PF, 30 MCG/0.3 ML DOSE 1 2020 208 complet ed [facility] PNEUMOCOCCAL CONJUGATE PCV 13 2014 133 complet ed [facility] ZOSTER LIVE 2012 121 complet ed [facility] PNEUMOCOCCAL POLYSACCHARID E PPV23 2010 33 complet ed [facility] TDAP 2010 115 complet ed [facility] Results Combined list of recent chemistry, [...] PM Reporting Lab: [facility] [address] Performing Lab: [facility] [address] [facility] CYSTATIN C WITH EGFR CYSTATIN C AND GLOMERULAR FILTRATION RATE BY CYSTATIN C-BASED FORMULA PANEL - SERUM OR PLASMA 53 60 02/13 L Specimen Type: PLASMA No comment entered. Ordering Provider: ANKUSH BOWMAN Report Released Date/Time: Feb 05, 2023 03:10 PM Reporting Lab: [facility] [address] Performing Lab: [facility] [address] [facility] BASIC METABOLI C PANEL+MG CREATININE [MASS/VOLU ME] IN SERUM OR PLASMA 0.7 0.7 - 1.2 02/13 Specimen Type: PLASMA No comment entered. Ordering Provider: ANKUSH BOWMAN Report Released Date/Time: Feb 05, 2023 03:10 PM Reporting Lab: [facility] [address] Performing Lab: [facility] [address] [place] [facility] BASIC METABOLI C PANEL+MG UREA NITROGEN [MASS/VOLU ME] IN SERUM OR PLASMA 15 8 - 26 02/13 Specimen Type: PLASMA No comment entered. Ordering Provider: ANKUSH BOWMAN Report Released Date/Time: Feb 05, 2023 03:10 PM Reporting Lab: [facility] [address] Performing Lab: [facility] [address] [place] [facility] BASIC METABOLI C PANEL+MG GLUCOSE [MASS/VOLU ME] IN SERUM OR PLASMA 140 70 - 100 02/13 H Specimen Type: PLASMA No comment entered. Ordering Provider: ANKUSH BOWMAN Report Released Date/Time: Feb 05, 2023 03:10 PM Reporting Lab: [facility] [address] Performing Lab: [facility] [address] [place] [facility] BASIC METABOLI C PANEL+MG SODIUM [MOLES/VOL UME] IN SERUM OR PLASMA 135 136 - 145 02/13 L Specimen Type: PLASMA No comment entered. Ordering Provider: ANKUSH BOWMAN Report Released Date/Time: Feb 05, 2023 03:10 PM Reporting Lab: [facility] [address] Performing Lab: [facility] [address] [place] [facility] BAS[facility] METABOLI C PANEL+MG POTASSIUM [MOLES/VOL UME] IN SERUM OR PLASMA 4.0 3.5 - 5.1 02/13 Specimen Type: PLASMA No comment entered. Ordering Provider: ANKUSH BOWMAN Report Released Date/Time: Feb 05, 2023 03:10 PM Reporting Lab: [facility] [address] Performing Lab: [facility] [address] [place] [facility] BASIC METABOLI C PANEL+MG CHLORIDE [MOLES/VOL UME] IN SERUM OR PLASMA 99 98 - 107 02/13 Specimen Type: PLASMA No comment entered. Ordering Provider: ANKUSH BOWMAN Report Released Date/Time: Feb 05, 2023 03:10 PM Reporting Lab: [facility] [address] Performing Lab: [facility] [address] [place] [facility] METABOL[facility] C PANEL+MG CARBON DIOXIDE, TOTAL [MOLES/VOL UME] IN SERUM OR PLASMA 29 22 - 29 02/13 Specimen Type: PLASMA No comment entered. Ordering Provider: ANKUSH BOWMAN Report Released Date/Time: Feb 05, 2023 03:10 PM Reporting Lab: [facility] [address] Performing Lab: [facility] [address] [place] [facility] METABOLI C PANEL+MG CALCIUM [MASS/VOLU ME] IN SERUM OR PLASMA 9.2 8.4 - 10.2 02/13 Specimen Type: PLASMA No comment entered. Ordering Provider: ANKUSH BOWMAN Report Released Date/Time: Feb 05, 2023 03:10 PM Reporting Lab: [facility] [address] Performing Lab: [facility] [address] [place] [facility] MET[facility]OL[facility] C PANEL+MG MAGNESIUM [MASS/VOLU ME] IN SERUM OR PLASMA 2.0 1.6 - 2.6 02/13 Specimen Type: PLASMA No comment entered. Ordering Provider: ANKUSH BOWMAN Report Released Date/Time: Feb 05, 2023 03:10 PM Reporting Lab: [facility] [address] Performing Lab: [facility] [address] [place] [facility] METABOLI C PANEL+MG ANION GAP IN SERUM OR PLASMA 7 5 - 15 02/13 Specimen Type: PLASMA No comment entered. Ordering Provider: ANKUSH BOWMAN Report Released Date/Time: Feb 05, 2023 03:10 PM Reporting Lab: [facility] [address] Performing Lab: [facility] [address] [place] [facility] MET[facility]OLI C PANEL+MG GLOMERULAR FILTRATION RATE/1.73 SQ M.PREDICTE D [VOLUME RATE/AREA] IN SERUM, PLASMA OR BLOOD BY CREATININE -BASED FORMULA (CKD-EPI) >90 60 02/13 Specimen Type: PLASMA No comment entered. Ordering Provider: ANKUSH BOWMAN Report Released Date/Time: Feb 05, 2023 03:10 PM Reporting Lab: [facility] [address] Performing Lab: [facility] [address] [place] [facility] URINAL[facility] IS COLOR OF URINE YELLOW 10/08 Specimen Type: URINE No comment entered. Ordering Provider: ANKUSH BOWMAN Report Released Date/Time: Sep 24, 2022 01:55 PM Reporting Lab: [facility] [address] Performing Lab: [facility] [address] [place] [facility] SPECIFIC GRAVITY OF URINE 1.023 1.003 - 1.035 10/08 Specimen Type: URINE No comment entered. Ordering Provider: ANKUSH BOWMAN Report Released Date/Time: Sep 24, 2022 01:55 PM Reporting Lab: [facility] [address] Performing Lab: [facility] [address] [place] [facility] IS BILIRUBIN. TOTAL [PRESENCE] IN URINE BY TEST STRIP NEGATIVE 10/08 Specimen Type: URINE No comment entered. Ordering Provider: ANKUSH BOWMAN Report Released Date/Time: Sep 24, 2022 01:55 PM Reporting Lab: [facility] [address] Performing Lab: [facility] [address] [place] [facility] KETONES [MASS/VOLU ME] IN URINE BY TEST STRIP NEGATIVE 10/08 Specimen Type: URINE No comment entered. Ordering Provider: ANKUSH BOWMAN Report Released Date/Time: Sep 24, 2022 01:55 PM Reporting Lab: [facility] [address] Performing Lab: [facility] [address] [place] [facility] GLUCOSE [MASS/VOLU ME] IN URINE BY TEST STRIP NEGATIVE 10/08 Specimen Type: URINE No comment entered. Ordering Provider: ANKUSH BOWMAN Report Released Date/Time: Sep 24, 2022 01:55 PM Reporting Lab: [facility] [address] Performing Lab: [facility] [address] [place] [facility] PROTEIN [MASS/VOLU ME] IN URINE BY TEST STRIP 30 10/08 Specimen Type: URINE No comment entered. Ordering Provider: ANKUSH BOWMAN Report Released Date/Time: Sep 24, 2022 01:55 PM Reporting Lab: [facility] [address] Performing Lab: [facility] [address] [place] [facility] PH OF URINE BY TEST STRIP 7.5 5.0 - 8.0 10/08 Specimen Type: URINE No comment entered. Ordering Provider: ANKUSH BOWMAN Report Released Date/Time: Sep 24, 2022 01:55 PM Reporting Lab: [facility] [address] Performing Lab: [facility] [address] [place] [facility] URINALYS IS LEUKOCYTES [#/AREA] IN URINE SEDIMENT BY MICROSCOPY HIGH POWER FIELD >180 0 - 7 10/08 H Specimen Type: URINE No comment entered. Ordering Provider: ANKUSH BOWMAN Report Released Date/Time: Sep 24, 2022 01:55 PM Reporting Lab: [facility] [address] Performing Lab: [facility] [address] [place] [facility] IS BACTERIA [PRESENCE] IN URINE SEDIMENT BY LIGHT MICROSCOPY MANY 10/08 Specimen Type: URINE No comment entered. Ordering Provider: ANKUSH BOWMAN Report Released Date/Time: Sep 24, 2022 01:55 PM Reporting Lab: [facility] [address] Performing Lab: [facility] [address] [facility]INAL[facility] IS ERYTHROCYT ES [#/AREA] IN URINE SEDIMENT BY MICROSCOPY HIGH POWER FIELD 33 0 - 3 10/08 H Specimen Type: URINE No comment entered. Ordering Provider: ANKUSH BOWMAN Report Released Date/Time: Sep 24, 2022 01:55 PM Reporting Lab: [facility] [address] Performing Lab: [facility] [address] [place] [facility] APPEARANCE OF URINE EX.TURBI D 10/08 Specimen Type: URINE No comment entered. Ordering Provider: ANKUSH BOWMAN Report Released Date/Time: Sep 24, 2022 01:55 PM Reporting Lab: [facility] [address] Performing Lab: [facility] [address] [place] [facility]IN[facility] IS EPITHELIAL CELLS.SQUA MOUS [#/AREA] IN URINE SEDIMENT BY MICROSCOPY HIGH POWER FIELD 1 10/08 Specimen Type: URINE No comment entered. Ordering Provider: ANKUSH BOWMAN Report Released Date/Time: Sep 24, 2022 01:55 PM Reporting Lab: [facility] [address] Performing Lab: [facility] [address] [place] [facility] IS HEMOGLOBIN [PRESENCE] IN URINE BY TEST STRIP 1+ 10/08 Specimen Type: URINE No comment entered. Ordering Provider: ANKUSH BOWMAN Report Released Date/Time: Sep 24, 2022 01:55 PM Reporting Lab: [facility] [address] Performing Lab: [facility] [address] [place] [facility] URINAL[facility] IS NITRITE [PRESENCE] IN URINE BY TEST STRIP NEGATIVE 10/08 Specimen Type: URINE No comment entered. Ordering Provider: ANKUSH BOWMAN Report Released Date/Time: Sep 24, 2022 01:55 PM Reporting Lab: [facility] [address] Performing Lab: [facility] [address] [place] [facility] URINALYS IS LEUKOCYTE CLUMPS [#/VOLUME] IN URINE BY AUTOMATED COUNT PRESENT 10/08 Specimen Type: URINE No comment entered. Ordering Provider: ANKUSH BOWMAN Report Released Date/Time: Sep 24, 2022 01:55 PM Reporting Lab: [facility] [address] Performing Lab: [facility] [address] [place] [facility] URINAL[facility] IS LEUKOCYTE ESTERASE [PRESENCE] IN URINE BY TEST STRIP 500 10/08 Specimen Type: URINE No comment entered. Ordering Provider: ANKUSH BOWMAN Report Released Date/Time: Sep 24, 2022 01:55 PM Reporting Lab: [facility] [address] Performing Lab: [facility] [address] [place] [facility] ALBUMIN ALBUMIN [MASS/VOLU ME] IN SERUM OR PLASMA 4.2 3.5 - 5.2 10/08 Specimen Type: PLASMA No comment entered. Ordering Provider: ANKUSH BOWMAN Report Released Date/Time: Sep 24, 2022 01:55 PM Reporting Lab: [facility] [address] Performing Lab: [facility] [address] [place] [facility] PRE-ALBU MIN PREALBUMIN [MASS/VOLU ME] IN SERUM OR PLASMA 28.4 14.0 - 45.0 10/08 Specimen Type: SERUM No comment entered. Ordering Provider: ANKUSH BOWMAN Report Released Date/Time: Sep 24, 2022 01:55 PM Reporting Lab: [facility] [address] Performing Lab: [facility] [address] [place] [facility] COMPREHE NSIVE METABOLI C PANEL+MG CREATININE [MASS/VOLU ME] IN SERUM OR PLASMA 0.7 0.7 - 1.2 10/08 Specimen Type: PLASMA No comment entered. Ordering Provider: ANKUSH BOWMAN Report Released Date/Time: Sep 24, 2022 01:55 PM Reporting Lab: [facility] [address] Performing Lab: [facility] [address] [place] [facility] COMPREHE NSIVE METABOLI C PANEL+MG UREA NITROGEN [MASS/VOLU ME] IN SERUM OR PLASMA 16 8 - 26 10/08 Specimen Type: PLASMA No comment entered. Ordering Provider: ANKUSH BOWMAN Report Released Date/Time: Sep 24, 2022 01:55 PM Reporting Lab: [facility] [address] Performing Lab: [facility] [address] [place] [facility] COMPREHE NSIVE METABOLI C PANEL+MG GLUCOSE [MASS/VOLU ME] IN SERUM OR PLASMA 94 70 - 100 10/08 Specimen Type: PLASMA No comment entered. Ordering Provider: ANKUSH BOWMAN Report Released Date/Time: Sep 24, 2022 01:55 PM Reporting Lab: [facility] [address] Performing Lab: [facility] [address] [place] [facility] COMPREHE NSIVE METABOLI C PANEL+MG SODIUM [MOLES/VOL UME] IN SERUM OR PLASMA 138 136 - 145 10/08 Specimen Type: PLASMA No comment entered. Ordering Provider: ANKUSH BOWMAN Report Released Date/Time: Sep 24, 2022 01:55 PM Reporting Lab: [facility] [address] Performing Lab: [facility] [address] [place] [facility] COMPREHE NSIVE METABOLI C PANEL+MG POTASSIUM [MOLES/VOL UME] IN SERUM OR PLASMA 3.9 3.5 - 5.1 10/08 Specimen Type: PLASMA No comment entered. Ordering Provider: ANKUSH BOWMAN Report Released Date/Time: Sep 24, 2022 01:55 PM Reporting Lab: [facility] [address] Performing Lab: [facility] [address] [place] [facility] COMPREHE NSIVE METABOLI C PANEL+MG CHLORIDE [MOLES/VOL UME] IN SERUM OR PLASMA 101 98 - 107 10/08 Specimen Type: PLASMA No comment entered. Ordering Provider: ANKUSH BOWMAN Report Released Date/Time: Sep 24, 2022 01:55 PM Reporting Lab: [facility] [address] Performing Lab: [facility] [address] [place] [facility] COMPREHE NSIVE METABOLI C PANEL+MG CARBON DIOXIDE, TOTAL [MOLES/VOL UME] IN SERUM OR PLASMA - 10/08 Specimen Type: PLASMA No comment entered. Ordering Provider: ANKUSH BOWMAN Report Released Date/Time: Sep 24, 2022 01:55 PM Reporting Lab: [facility] [address] Performing Lab: [facility] [address] [place] [facility] COMPREHE NSIVE METABOLI C PANEL+MG CALCIUM [MASS/VOLU ME] IN SERUM OR PLASMA 9.7 8.4 - 10.2 10/08 Specimen Type: PLASMA No comment entered. Ordering Provider: ANKUSH BOWMAN Report Released Date/Time: Sep 24, 2022 01:55 PM Reporting Lab: [facility] [address] Performing Lab: [facility] [address] [place] COMPREHE NSIVE METABOLI C PANEL+MG PROTEIN [MASS/VOLU ME] IN SERUM OR PLASMA 7.6 6.0 - 8.3 10/08 Specimen Type: PLASMA No comment entered. Ordering Provider: ANKUSH BOWMAN Report Released Date/Time: Sep 24, 2022 01:55 PM Reporting Lab: [facility] [address] Performing Lab: [facility] [address] [place] [facility] COMPREHE NSIVE METABOLI C PANEL+MG ALBUMIN [MASS/VOLU ME] IN SERUM OR PLASMA 4.2 3.5 - 5.2 10/08 Specimen Type: PLASMA No comment entered. Ordering Provider: ANKUSH BOWMAN Report Released Date/Time: Sep 24, 2022 01:55 PM Reporting Lab: [facility] [address] Performing Lab: [facility] [address] [place] [facility] COMPREHE NSIVE METABOLI C PANEL+MG BILIRUBIN. TOTAL [MASS/VOLU ME] IN SERUM OR PLASMA 0.6 0.2 - 1.2 10/08 Specimen Type: PLASMA No comment entered. Ordering Provider: ANKUSH BOWMAN Report Released Date/Time: Sep 24, 2022 01:55 PM Reporting Lab: [facility] [address] Performing Lab: [facility] [address] [place] [facility] COMPREHE NSIVE METABOLI C PANEL+MG MAGNESIUM [MASS/VOLU ME] IN SERUM OR PLASMA 2.1 1.6 - 2.6 10/08 Specimen Type: PLASMA No comment entered. Ordering Provider: ANKUSH BOWMAN Report Released Date/Time: Sep 24, 2022 01:55 PM Reporting Lab: [facility] [address] Performing Lab: [facility] [address] [place] [facility] COMPREHE NSIVE METABOLI C PANEL+MG ANION GAP IN SERUM OR PLASMA 9 5 - 15 10/08 Specimen Type: PLASMA No comment entered. Ordering Provider: ANKUSH BOWMAN Report Released Date/Time: Sep 24, 2022 01:55 PM Reporting Lab: [facility] [address] Performing Lab: [facility] [address] [facility] [facility] COMPREHE NSIVE METABOLI C PANEL+MG ALKALINE PHOSPHATAS E [ENZYMATIC ACTIVITY/V OLUME] IN SERUM OR PLASMA 96 40 - 150 10/08 Specimen Type: PLASMA No comment entered. Ordering Provider: ANKUSH BOWMAN Report Released Date/Time: Sep 24, 2022 01:55 PM Reporting Lab: [facility] [address] Performing Lab: [facility] [address] [facility] COMPREHE NSIVE METABOLI C PANEL+MG ALANINE AMINOTRANS FERASE [ENZYMATIC ACTIVITY/V OLUME] IN SERUM OR PLASMA 29 <55 - 55 10/08 Specimen Type: PLASMA No comment entered. Ordering Provider: ANKUSH BOWMAN Report Released Date/Time: Sep 24, 2022 01:55 PM Reporting Lab: [facility] [address] Performing Lab: [facility] [address] [facility] COMPREHE NSIVE METABOLI C PANEL+MG ASPARTATE AMINOTRANS FERASE [ENZYMATIC ACTIVITY/V OLUME] IN SERUM OR PLASMA 22 <34 - 34 10/08 Specimen Type: PLASMA No comment entered. Ordering Provider: ANKUSH BOWMAN Report Released Date/Time: Sep 24, 2022 01:55 PM Reporting Lab: [facility] [address] Performing Lab: [facility] [address] [place] [facility] COMPREHE NSIVE METABOLI C PANEL+MG GLOMERULAR FILTRATION RATE/1.73 SQ M.PREDICTE D [VOLUME RATE/AREA] IN SERUM, PLASMA OR BLOOD BY CREATININE -BASED FORMULA (CKD-EPI) >90 60 10/08 Specimen Type: PLASMA No comment entered. Ordering Provider: ANKUSH BOWMAN Report Released Date/Time: Sep 24, 2022 01:55 PM Reporting Lab: [facility] [address] Performing Lab: [facility] [address] [place] [facility] CBC & DIFF LEUKOCYTES [#/VOLUME] IN BLOOD BY AUTOMATED COUNT 7.32 4.0 - 11.0 10/08 Specimen Type: BLOOD Comment: Automated Differentia l Performed Ordering Provider: ANKUSH BOWMAN Report Released Date/Time: Sep 24, 2022 01:55 PM Reporting Lab: [facility] [address] Performing Lab: [facility] [address] [place] [facility] CBC & DIFF ERYTHROCYT ES [#/VOLUME] IN BLOOD BY AUTOMATED COUNT 4.80 4.6 - 6.2 10/08 Specimen Type: BLOOD Comment: Automated Differentia l Performed Ordering Provider: ANKUSH BOWMAN Report Released Date/Time: Sep 24, 2022 01:55 PM Reporting Lab: [facility] [address] Performing Lab: [facility] [address] [place] [facility] CBC & DIFF HEMOGLOBIN [MASS/VOLU ME] IN BLOOD 14.7 13.5 - 17.9 10/08 Specimen Type: BLOOD Comment: Automated Differentia l Performed Ordering Provider: ANKUSH BOWMAN Report Released Date/Time: Sep 24, 2022 01:55 PM Reporting Lab: [facility] [address] Performing Lab: [facility] [address] [place] [facility] & DIFF HEMATOCRIT [VOLUME FRACTION] OF BLOOD BY AUTOMATED COUNT 44.2 41 - 54 10/08 Specimen Type: BLOOD Comment: Automated Differentia l Performed Ordering Provider: ANKUSH BOWMAN Report Released Date/Time: Sep 24, 2022 01:55 PM Reporting Lab: [facility] [address] Performing Lab: [facility] [address] [place] [facility] CBC & DIFF MCV [ENTITIC VOLUME] BY AUTOMATED COUNT 92.1 80 - 100 10/08 Specimen Type: BLOOD Comment: Automated Differentia l Performed Ordering Provider: ANKUSH BOWMAN Report Released Date/Time: Sep 24, 2022 01:55 PM Reporting Lab: [facility] [address] Performing Lab: [facility] [address] [place] [facility] CBC & DIFF MCH [ENTITIC MASS] BY AUTOMATED COUNT 30.6 27 - 33 10/08 Specimen Type: BLOOD Comment: Automated Differentia l Performed Ordering Provider: ANKUSH BOWMAN Report Released Date/Time: Sep 24, 2022 01:55 PM Reporting Lab: [facility] [address] Performing Lab: [facility] [address] [place] [facility] CBC & DIFF MCHC [MASS/VOLU ME] BY AUTOMATED COUNT 33.3 32.0 - 37.5 10/08 Specimen Type: BLOOD Comment: Automated Differentia l Performed Ordering Provider: ANKUSH BOWMAN Report Released Date/Time: Sep 24, 2022 01:55 PM Reporting Lab: [facility] [address] Performing Lab: [facility] [address] [place] [facility] CBC & DIFF PLATELETS [#/VOLUME] IN BLOOD BY AUTOMATED COUNT 144 150 - 400 10/08 L Specimen Type: BLOOD Comment: Automated Differentia l Performed Ordering Provider: ANKUSH BOWMAN Report Released Date/Time: Sep 24, 2022 01:55 PM Reporting Lab: [facility] [address] Performing Lab: [facility] [address] [place] [facility] CBC & DIFF PLATELET MEAN VOLUME [ENTITIC VOLUME] IN BLOOD BY AUTOMATED COUNT 10.8 7.4 - 10.4 10/08 H Specimen Type: BLOOD Comment: Automated Differentia l Performed Ordering Provider: ANKUSH BOWMAN Report Released Date/Time: Sep 24, 2022 01:55 PM Reporting Lab: [facility] [address] Performing Lab: [facility] [address] [place] [facility] CBC & DIFF NEUTROPHIL S/100 LEUKOCYTES IN BLOOD BY MANUAL COUNT 55.5 10/08 Specimen Type: BLOOD Comment: Automated Differentia l Performed Ordering Provider: ANKUSH BOWMAN Report Released Date/Time: Sep 24, 2022 01:55 PM Reporting Lab: [facility] [address] Performing Lab: [facility] [address] [place] [facility] CBC & DIFF LYMPHOCYTE S/100 LEUKOCYTES IN BLOOD BY MANUAL COUNT 31.4 10/08 Specimen Type: BLOOD Comment: Automated Differentia l Performed Ordering Provider: ANKUSH BOWMAN Report Released Date/Time: Sep 24, 2022 01:55 PM Reporting Lab: [facility] [address] Performing Lab: [facility] [address] [place] [facility] CBC & DIFF MONOCYTES/ 100 LEUKOCYTES IN BLOOD BY AUTOMATED COUNT 10.2 10/08 Specimen Type: BLOOD Comment: Automated Differentia l Performed Ordering Provider: ANKUSH BOWMAN Report Released Date/Time: Sep 24, 2022 01:55 PM Reporting Lab: [facility] [address] Performing Lab: [facility] [address] [place] [facility] CBC & DIFF EOSINOPHIL S/100 LEUKOCYTES IN BLOOD BY AUTOMATED COUNT 2.2 10/08 Specimen Type: BLOOD Comment: Automated Differentia l Performed Ordering Provider: ANKUSH BOWMAN Report Released Date/Time: Sep 24, 2022 01:55 PM Reporting Lab: [facility] [address] Performing Lab: [facility] [address] [place] [facility] CBC & DIFF BASOPHILS/ 100 LEUKOCYTES IN BLOOD BY MANUAL COUNT 0.4 10/08 Specimen Type: BLOOD Comment: Automated Differentia l Performed Ordering Provider: ANKUSH BOWMAN Report Released Date/Time: Sep 24, 2022 01:55 PM Reporting Lab: [facility] [address] Performing Lab: [facility] [address] [place] [facility] CBC & DIFF ERYTHROCYT E DISTRIBUTI ON WIDTH [RATIO] BY AUTOMATED COUNT 15.9 11.5 - 14.5 10/08 H Specimen Type: BLOOD Comment: Automated Differentia l Performed Ordering Provider: ANKUSH BOWMAN Report Released Date/Time: Sep 24, 2022 01:55 PM Reporting Lab: [facility] [address] Performing Lab: [facility] [address] [place] [facility] CBC & DIFF LYMPHOCYTE S [#/VOLUME] IN BLOOD BY AUTOMATED COUNT 2.30 1.0 - 4.0 10/08 Specimen Type: BLOOD Comment: Automated Differentia l Performed Ordering Provider: ANKUSH BOWMAN Report Released Date/Time: Sep 24, 2022 01:55 PM Reporting Lab: [facility] [address] Performing Lab: [facility] [address] [place] [facility] CBC & DIFF MONOCYTES [#/VOLUME] IN BLOOD BY AUTOMATED COUNT 0.75 0.1 - 1.0 10/08 Specimen Type: BLOOD Comment: Automated Differentia l Performed Ordering Provider: ANKUSH BOWMAN Report Released Date/Time: Sep 24, 2022 01:55 PM Reporting Lab: [facility] [address] Performing Lab: [facility] [address] [place] [facility] CBC & DIFF NEUTROPHIL S [#/VOLUME] IN BLOOD BY AUTOMATED COUNT 4.06 2.0 - 7.7 10/08 Specimen Type: BLOOD Comment: Automated Differentia l Performed Ordering Provider: ANKUSH BOWMAN Report Released Date/Time: Sep 24, 2022 01:55 PM Reporting Lab: [facility] [address] Performing Lab: [facility] [address] [place] [facility] CBC & DIFF EOSINOPHIL S [#/VOLUME] IN BLOOD BY AUTOMATED COUNT 0.16 0 - 0.5 10/08 Specimen Type: BLOOD Comment: Automated Differentia l Performed Ordering Provider: ANKUSH BOWMAN Report Released Date/Time: Sep 24, 2022 01:55 PM Reporting Lab: [facility] [address] Performing Lab: [facility] [address] [place] [facility] CBC & DIFF BASOPHILS [#/VOLUME] IN BLOOD BY AUTOMATED COUNT 0.03 0 - 0.2 10/08 Specimen Type: BLOOD Comment: Automated Differentia l Performed Ordering Provider: ANKUSH BOWMAN Report Released Date/Time: Sep 24, 2022 01:55 PM Reporting Lab: [facility] [address] Performing Lab: [facility] [address] [place] [facility] CBC & DIFF IG(META,MY MALACHI,PRO) 0.3 10/08 Specimen Type: BLOOD Comment: Automated Differentia l Performed Ordering Provider: ANKUSH BOWMAN Report Released Date/Time: Sep 24, 2022 01:55 PM Reporting Lab: [facility] [address] Performing Lab: [facility] [address] [place] [facility] & DIFF IMMATURE GRANULOCYT ES [PRESENCE] IN BLOOD BY AUTOMATED COUNT 0.02 0 - 0.1 10/08 Specimen Type: BLOOD Comment: Automated Differentia l Performed Ordering Provider: ANKUSH BOWMAN Report Released Date/Time: Sep 24, 2022 01:55 PM Reporting Lab: [facility] [address] Performing Lab: [facility] [address] [place] [facility] CYSTATIN C WITH EGFR CYSTATIN C [MASS/VOLU ME] IN SERUM OR PLASMA 1.38 0.51 - 1.05 10/08 H Specimen Type: PLASMA No comment entered. Ordering Provider: ANKUSH BOWMAN Report Released Date/Time: Sep 24, 2022 01:55 PM Reporting Lab: [facility] [address] Performing Lab: [facility] [address] [place] [facility] CYSTATIN C WITH EGFR CYSTATIN C AND GLOMERULAR FILTRATION RATE BY CYSTATIN-B ASED FORMULA PANEL - SERUM OR PLASMA 48 60 10/08 L Specimen Type: PLASMA No comment entered. Ordering Provider: ANKUSH BOWMAN Report Released Date/Time: Sep 24, 2022 01:55 PM Reporting Lab: [facility] [address] Performing Lab: [facility] [address] [place] [facility] VIT D 25-OH,TO ZAMZAM 25-HYDROXY VITAMIN D3 [MASS/VOLU ME] IN SERUM OR PLASMA 54 12 - 50 10/08 H Specimen Type: SERUM No comment entered. Ordering Provider: ANKUSH BOWMAN Report Released Date/Time: Sep 24, 2022 01:55 PM Reporting Lab: [facility] [address] Performing Lab: [facility] [address] [place] [facility] COMPREHE NSIVE METABOLI C PANEL+MG CREATININE [MASS/VOLU ME] IN SERUM OR PLASMA 0.7 0.7 - 1.2 05/28 Specimen Type: PLASMA No comment entered. Ordering Provider: GERMANIA HANSON Report Released Date/Time: May 28, 2022 03:06 PM Reporting Lab: [facility] [address] Performing Lab: [facility] [address] [facility] COMPREHE NSIVE METABOLI C PANEL+MG UREA NITROGEN [MASS/VOLU ME] IN SERUM OR PLASMA 13 8 - 26 05/28 Specimen Type: PLASMA No comment entered. Ordering Provider: GERMANIA HANSON Report Released Date/Time: May 28, 2022 03:06 PM Reporting Lab: [facility] [address] Performing Lab: [facility] [address] [facility] COMPREHE NSIVE METABOLI C PANEL+MG GLUCOSE [MASS/VOLU ME] IN SERUM OR PLASMA 98 74 - 100 05/28 Specimen Type: PLASMA No comment entered. Ordering Provider: GERMANIA HANSON Report Released Date/Time: May 28, 2022 03:06 PM Reporting Lab: [facility] [address] Performing Lab: [facility] [address] [facility] COMPREHE NSIVE METABOLI C PANEL+MG SODIUM [MOLES/VOL UME] IN SERUM OR PLASMA 138 136 - 145 05/28 Specimen Type: PLASMA No comment entered. Ordering Provider: GERMANIA HANSON Report Released Date/Time: May 28, 2022 03:06 PM Reporting Lab: [facility] [address] Performing Lab: [facility] [address] [facility] COMPREHE NSIVE METABOLI C PANEL+MG POTASSIUM [MOLES/VOL UME] IN SERUM OR PLASMA 4.4 3.5 - 5.1 05/28 Specimen Type: PLASMA No comment entered. Ordering Provider: GERMANIA HANSON Report Released Date/Time: May 28, 2022 03:06 PM Reporting Lab: [facility] [address] Performing Lab: [facility] [address] [facility] COMPREHE NSIVE METABOLI C PANEL+MG CHLORIDE [MOLES/VOL UME] IN SERUM OR PLASMA 102 98 - 107 05/28 Specimen Type: PLASMA No comment entered. Ordering Provider: GERMANIA HANSON Report Released Date/Time: May 28, 2022 03:06 PM Reporting Lab: [facility] [address] Performing Lab: [facility] [address] [facility] COMPREHE NSIVE METABOLI C PANEL+MG CARBON DIOXIDE, TOTAL [MOLES/VOL UME] IN SERUM OR PLASMA 28 22 - 29 05/28 Specimen Type: PLASMA No comment entered. Ordering Provider: GERMANIA HANSON Report Released Date/Time: May 28, 2022 03:06 PM Reporting Lab: [facility] [address] Performing Lab: [facility] [address] [facility] COMPREHE NSIVE METABOLI C PANEL+MG CALCIUM [MASS/VOLU ME] IN SERUM OR PLASMA 9.4 8.4 - 10.2 05/28 Specimen Type: PLASMA No comment entered. Ordering Provider: GERMANIA HANSON Report Released Date/Time: May 28, 2022 03:06 PM Reporting Lab: [facility] [address] Performing Lab: [facility] [address] [facility] COMPREHE NSIVE METABOLI C PANEL+MG PROTEIN [MASS/VOLU ME] IN SERUM OR PLASMA 7.6 6.0 - 8.3 05/28 Specimen Type: PLASMA No comment entered. Ordering Provider: GERMANIA HANSON Report Released Date/Time: May 28, 2022 03:06 PM Reporting Lab: [facility] [address] Performing Lab: [facility] [address] [facility] COMPREHE NSIVE METABOLI C PANEL+MG ALBUMIN [MASS/VOLU ME] IN SERUM OR PLASMA 4.0 3.5 - 5.2 05/28 Specimen Type: PLASMA No comment entered. Ordering Provider: GERMANIA HANSON Report Released Date/Time: May 28, 2022 03:06 PM Reporting Lab: [facility] [address] Performing Lab: [facility] [address] [facility] COMPREHE NSIVE METABOLI C PANEL+MG BILIRUBIN. TOTAL [MASS/VOLU ME] IN SERUM OR PLASMA 0.5 0.2 - 1.2 05/28 Specimen Type: PLASMA No comment entered. Ordering Provider: GERMANIA HANSON Report Released Date/Time: May 28, 2022 03:06 PM Reporting Lab: [facility] [address] Performing Lab: [facility] [address] [facility] COMPREHE NSIVE METABOLI C PANEL+MG MAGNESIUM [MASS/VOLU ME] IN SERUM OR PLASMA 2.1 1.6 - 2.6 05/28 Specimen Type: PLASMA No comment entered. Ordering Provider: GERMANIA HANSON Report Released Date/Time: May 28, 2022 03:06 PM Reporting Lab: [facility] [address] Performing Lab: [facility] [address] [facility] COMPREHE NSIVE METABOLI C PANEL+MG ANION GAP IN SERUM OR PLASMA 8 5 - 15 05/28 Specimen Type: PLASMA No comment entered. Ordering Provider: GERMANIA HANSON Report Released Date/Time: May 28, 2022 03:06 PM Reporting Lab: [facility] [address] Performing Lab: [facility] [address] [facility] COMPREHE NSIVE METABOLI C PANEL+MG ALKALINE PHOSPHATAS E [ENZYMATIC ACTIVITY/V OLUME] IN SERUM OR PLASMA 108 40 - 150 05/28 Specimen Type: PLASMA No comment entered. Ordering Provider: GERMANIA HANSON Report Released Date/Time: May 28, 2022 03:06 PM Reporting Lab: [facility] [address] Performing Lab: [facility] [address] [facility] COMPREHE NSIVE METABOLI C PANEL+MG ALANINE AMINOTRANS FERASE [ENZYMATIC ACTIVITY/V OLUME] IN SERUM OR PLASMA 27 <55 - 55 05/28 Specimen Type: PLASMA No comment entered. Ordering Provider: GERMANIA HANSON Report Released Date/Time: May 28, 2022 03:06 PM Reporting Lab: [facility] [address] Performing Lab: [facility] [address] [facility] COMPREHE NSIVE METABOLI C PANEL+MG ASPARTATE AMINOTRANS FERASE [ENZYMATIC ACTIVITY/V OLUME] IN SERUM OR PLASMA 21 <34 - 34 05/28 Specimen Type: PLASMA No comment entered. Ordering Provider: GERMANIA HANSON Report Released Date/Time: May 28, 2022 03:06 PM Reporting Lab: [facility] [address] Performing Lab: [facility] [address] [facility] COMPREHE NSIVE METABOLI C PANEL+MG GLOMERULAR FILTRATION RATE/1.73 SQ M.PREDICTE D [VOLUME RATE/AREA] IN SERUM, PLASMA OR BLOOD BY CREATININE -BASED FORMULA (CKD-EPI) >90 60 05/28 Specimen Type: PLASMA No comment entered. Ordering Provider: GERMANIA HANSON Report Released Date/Time: May 28, 2022 03:06 PM Reporting Lab: [facility] [address] Performing Lab: [facility] [address] SADAF NORMAN Vital Signs Combined list of inpatient and outpatient Vital Signs from Department of Defense and Veterans Affairs, ranging from 12 months to all on record, depending upon the facility. Vital Sign Value Date Comments Source SYSTOLIC BLOOD PRESSURE 103 02/13/2023 10:58:23 [facility] DIASTOLIC BLOOD PRESSURE 66 02/13/2023 10:58:23 [facility] PULSE OXIMETRY 98% 02/13/2023 10:58:23 [facility] PAIN 4 02/13/2023 10:58:23 [facility] TEMPER[facility] 96.2 02/13/2023 10:58:23 [facility] P[facility]SE 86 02/13/2023 10:58:23 [facility] RESPIRATION 16 02/13/2023 10:58:23 [facility] WEIGHT 225 02/05/2023 15:39:35 [facility] BMI 33kg/m2 02/05/2023 15:39:35 [facility] Encounters Combined list of: 1) Encounters from Department of Veterans Affairs facilities going back up to thelast 18 months. 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 Location Location Details Encounter Type Encounter Number Reason For Visit Attending Provider ADM Date DC Date Status Disposition Source SADAF TREVINO [facility] OFFICE O/P [place] 60-74 MIN [id number] Diagnos is: ICD-10- CM C72.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
GRANDIA,CO NNIE M 05/28 SADAF TREVINO [facility] [place] [facility] En[facility] [id number] 05/30 [facility] [place] [facility] En[facility] [id number] 06/01 [place] [facility] [place] [facility] En[facility] [id number] 06/04 [place] [facility] [place] [facility] En[facility] [id number] 06/05 [facility] [place] [facility] SELF CARE MNGMENT TRAINING [id number] Diagnos is: ICD-10- CM Z73.6 Limitat ion of activit ies due to disabil ity<br/ > NADEEN MITCHELL 06/07 [place] [facility] [place] [facility] En[facility] [id number] 06/07 [place] [facility] OT EVAL HIGH COMPLEX 60 MIN [id number] Diagnos is: ICD-10- CM R54 Age-rel ated physica l debilit y
SAVANNA MCKINLEY 06/07 [place] [facility] [place] [facility] En[facility] [id number] 06/11 [place] [facility] [place] [facility] En[facility] [id number] 06/11 [place] [facility] [place] [facility] En[facility] [id number] 06/12 [place] [facility] [place] [facility] Encounter [id number] 06/15 [place] [facility] [place] [facility] En[facility] [id number] 06/21 [place] [facility] [place] [facility] [id number] 06/25 [facility] O/P NEW [place] 30-44 MIN [id number] Diagnos is: ICD-10- CM G82.20 Paraple mary kay, unspeci fied
ME LOGAN BOWMAN 06/27 [facility] [place] [facility] En[facility] [id number] 06/27 [facility] [place] [facility] SELF CARE MNGMENT TRAINING [id number] Diagnos is: ICD-10- CM Z73.6 Limitat ion of activit ies due to disabil ity<br/ > AVE HALEY 07/11 [facility] Out[facility] Encounter [id number] 07/18 [facility] SELF CARE MNGMENT TRAINING [id number] Diagnos is: ICD-10- CM Z73.6 Limitat ion of activit ies due to disabil ity<br/ > RACIEL CHOWDHURY T 07/23 [facility] SELF CARE MNGMENT TRAINING [id number] Diagnos is: ICD-10- CM Z73.6 Limitat ion of activit ies due to disabil ity<br/ > AVE HALEY M 07/25 [facility] OT EVAL MOD COMPLEX 45 MIN [id number]. [phone] Diagnos is: ICD-10- CM Z73.6 Limitat ion of activit ies due to disabil ity<br/ > AVE HALEY M 07/25 [facility] Outpatient Encounter [id number] Diagnos is: ICD-10- CM R26.9 Unspeci fied abnorma lities of gait and mobilit y
KARI JORDAN M 07/31 [facility] OFF[facility] O/P EST MOD 30-39 MIN 29809-3. [phone] Diagnos is: ICD-10- CM G82.20 Paraple mary kay, unspeci fied
ME LOGAN BOWMAN 08/01 [facility] Outpatient Encounter [id number] 08/17 [facility] Outpatient Encounter [id number] 09/20 [facility] O/P EST MINIMAL PROB [id number] Diagnos is: ICD-10- CM G82.20 Paraple mary kay, unspeci fied
Jey PATTON V 10/08 [facility] ASSISTIVE TECHNOLOGY ASSESS [id number] Diagnos is: ICD-10- CM Z73.6 Limitat ion of activit ies due to disabil ity<br/ > BOUSBASIL,RY AN P 10/08 [facility] Outpatient Encounter [id number] 10/09 [facility] Outpatient Encounter [id number] 10/11 [facility] HC PRO PHONE CALL 5-10 MIN [phone] Diagnos is: ICD-10- CM Z73.6 Limitat ion of activit ies due to disabil ity<br/ > AVE HALEY 12/13 [facility] Outpatient Encounter [id number] 01/08 [facility] HC PRO PHONE CALL 21-30 MIN [id number] Diagnos is: ICD-10- CM G82.20 Paraple mary kay, unspeci fied
Hever CASTRO 01/08 [facility] Outpatient Encounter [id number] 01/09 [facility] DIABETIC MANAGEMENT PROGRAM, [id number] Diagnos is: ICD-10- CM G82.20 Paraple mary kay, unspeci fied
TIGIST BASSETT 01/30 [facility] Outpatient Encounter [id number] 02/05 [facility] MTMS BY PHARM ADDL 15 MIN [id number] Diagnos is: ICD-10- CM G82.20 Paraple mary kay, unspeci fied
MANPREET BARRETT N 02/05 [facility] OT EVAL LOW COMPLEX 30 MIN [id number] Diagnos is: ICD-10- CM Z73.6 Limitat ion of activit ies due to disabil ity<br/ > Bryn PARDO 02/05 [facility] OFF/OP EST MAY X REQ PHY/QHP [id number] Diagnos is: ICD-10- CM G82.20 Paraple mary kay, unspeci fied
JOSUÉ ZAMORA J 02/05 [facility] PSYCH DIAGNOSTIC EVALUATION [id number] Diagnos is: ICD-10- CM F32.A Depress ion, unspeci fied
BINU GAMEZ 02/05 [facility] OFFICE O/P EST MOD 30-39 MIN [id number] Diagnos is: ICD-10- CM G82.20 Paraple mary kay, unspeci fied
ME LOGAN BOWMAN 02/05 [facility] PSYCH DIAGNOSTIC EVALUATION [id number] Diagnos is: ICD-10- CM G82.20 Paraple mary kay, unspeci fied
JENNIFFERAN DESIRE J 02/05 [facility] MEDICAL NUTRITION INDIV IN [id number] Diagnos is: ICD-10- CM Z71.3 Dietary career and guidance counselor ing and surveil payal<b r/> Katia ARCHER 02/05 [facility] ENTEROSTOM AL THERAPY BY A RE [id number] Diagnos is: ICD-10- CM Z43.3 Encount er for attenti on to colosto my
VIOLA YOON 02/08 [facility] OFFICE O/P EST HI 40-54 MIN [id number] Diagnos is: ICD-10- CM G82.20 Paraple mary kay, unspeci fied
ME LOGAN BOWMAN 02/13 [facility] WHEELCHAIR MNGMENT TRAINING [id number] Diagnos is: ICD-10- CM Z73.6 Limitat ion of activit ies due to disabil ity<br/ > BOUSLOG,RY AN P 02/13 [facility] Outpatient Encounter [id number] 02/19 [facility] PRO PHONE CALL 11-20 MIN [id number] Diagnos is: ICD-10- CM Z73.6 Limitat ion of activit ies due to disabil ity<br/ > BOUSLOG,RY AN P 04/23 [facility] Outpatient Encounter [id number] 04/24 [facility] Outpatient Encounter [id number] 05/24 [facility] OFF/OP EST MAY X REQ PHY/QHP [id number] Diagnos is: ICD-10- CM G82.20 Paraple mary kay, unspeci fied
VIOLA YOON NDJagdish 05/28 [facility] WHEELCHAIR MNGMENT TRAINING [id number] Diagnos is: ICD-10- CM Z73.6 Limitat ion of activit ies due to disabil ity<br/ > BOUSLOG,RY AN P 06/10 [facility] Out[facility] Encounter [id number] 10/28 [facility] Outpatient Encounter [id number] 11/20 [facility] Social History Combined list of available smoking, tobacco, and other social history from 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 Social History Type Response Date Comment Sourc e Tobacco smoking status [facility] NEVER USED 05/28/20 22 [facility] This section is an empty social history section. DoD Advance Directives List of completed, amended, or rescinded Advance Directives on record at Department of 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 An actual copy of the Directive is not included. Date Advance Directive Provider Source 02/05/2023 ADVANCE DIRECTIVE DISCUSSION [facility]
--- OUTSIDE RECORDS SUMMARY | 2023-12-23 12:40 | XMS_ITS | Clinical Summary ---
Author Name Unknown Organization [facility] Address [address] [place] [address] Care Team Providers Care Office Services Coordinator Name Role Phone Franklin Squires MD Primary Care Provider [phone] Source Comments You are receiving this document as you are listed as the primary care provider,follow-up provider, or the patient has been referred to you for consultation.This is in compliance with the Medicare and[facility] EHR Incentive Program,which states Providers who transition their patient to another setting of careor provider of care or refers their patient to another provider of care shouldprovide summary care record for each transition of care or referral. 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 0 02/17/2014 [...] Comments Blood Pressure 120/63 01/18/2022 12:59 PM [facility] [employer] Pulse 87 01/18/2022 12:59 PM [employer] [employer] Temperature 36.3 ??C (97.4 ??F) 01/18/2022 12:59 [...] this topic Medical Devices Implanted Type Area Electric Scoop Operator Device Identifier Shelf Expiration Date Model / Serial / Lot [id number] 4ml Tisseel Explanted:([place] ntity not on file) BIOLOGIC N/A: NECK Lynne Fenwall 09/10/2011 [id number] / [id number] / [id number] Description:posterior Cath Intrathecal Indura - [id number] Implanted:Qty: 1 on 05/09/2010 at [facility] DEVICE Right: LUMBAR SPINE [employer] 01/18/2012 8709 / N/A / [id number] Cath Intrathecal Indura - [id number] Implanted:Qty: 1 on 05/29/2010 at [facility] DEVICE [employer] 8709 / / Scr Indira Conic 7.3x80 - [id number] Implanted:Qty: 1 on 03/13/2011 at [facility] DEVICE Right: FEMUR DISTAL [employer] 02.207.28 0 / NONE / NONE Plt Lcp Cndl Rt 4.5x170 6h - [id number] Implanted:Qty: 1 on 03/13/2011 at [facility] DEVICE Right: FEMUR DISTAL [employer] 222.656 / NONE / NONE Description:6 hole 170mm rig ht 4.5mm lcp condylar plate Scr Didier Ss Sftp 4.5x40 - [id number] Implanted:Qty: 1 on 03/13/2011 at [facility] DEVICE Left: FEMUR DISTAL [employer] 214.840 / NONE / NONE Scr Didier Ss Sftp 4.5x50 - [id number] Implanted:Qty: 1 on 03/13/2011 at [facility] DEVICE Left: FEMUR DISTAL [employer] 214.850 / NONE / NONE Scr Indira Lk 5.0x80 - [id number] Implanted:Qty: 2 on 03/13/2011 at [facility] DEVICE Left: FEMUR DISTAL [employer] 02.205.08 0 / NONE / NONE Scr Indira Lk 5.0x85 - [id number] Implanted:Qty: 2 on 03/13/2011 at [facility] DEVICE Left: FEMUR DISTAL [employer] 02.205.08 5 / NONE / NONE Scr Lk Sftp T25 5.0x50 - [id number] Implanted:Qty: 1 on 03/13/2011 at [facility] DEVICE Left: FEMUR DISTAL [employer] 212.219 / NONE / NONE Scr Lk Sftp T25 5.0x60 - [id number] Implanted:Qty: 1 on 03/13/2011 at [facility] DEVICE Left: FEMUR DISTAL [employer] 212.221 / NONE / NONE Scr Indira Conic 7.3x85 - [id number] Implanted:Qty: 1 on 03/13/2011 at [facility] DEVICE Left: FEMUR DISTAL [employer] 02.207.28 5 / NONE / NONE Plt Lcp Cndl Lt 4.5x170 6h - [id number] Implanted:Qty: 1 on 03/13/2011 at [facility] DEVICE Left: FEMUR DISTAL [employer] 222.657 / NONE / NONE Description:6 hole 170mmleng th left 4.5mm lcp condylar plate. Scr Didier Sftp 3.5x60 F-Thrd - [id number] Implanted:Qty: 1 on 03/13/2011 at [facility] DEVICE Left: TIBIA PROXIMAL [employer] [place] 204.860 / NONE / NONE Scr Star Lk Sftp 3.5x32 - [id number] Implanted:Qty: 1 on 03/13/2011 at [facility] DEVICE Left: TIBIA PROXIMAL [employer] [place] 212.112 / NONE / NONE Scr Star Lk Sftp 3.5x55 - [id number] Implanted:Qty: 2 on 03/13/2011 at [facility] DEVICE Left: TIBIA PROXIMAL [employer] [place] 212.123 / NONE / NONE Scr Star Lk Sftp 3.5x60 - [id number] Implanted:Qty: 2 on 03/13/2011 at [facility] DEVICE Left: TIBIA PROXIMAL [employer] [place] 212.124 / NONE / NONE Plt Lcp M/Prox Lt 3.5x94 4h - [id number] Implanted:Qty: 1 on 03/13/2011 at [facility] DEVICE Left: TIBIA PROXIMAL [employer] [place] 239.955 / NONE / NONE Scr Didier Ss Sftp 4.5x36 - [id number] Implanted:Qty: 1 on 03/13/2011 at [facility] DEVICE Right: FEMUR DISTAL [employer] [place] 214.836 / NONE / NONE Scr Didier Ss Sftp 4.5x44 - [id number] Implanted:Qty: 1 on 03/13/2011 at [facility] DEVICE Right: FEMUR DISTAL [employer] [place] 214.844 / NONE / NONE Scr Indira Lk 5.0x75 - [id number] Implanted:Qty: 1 on 03/13/2011 at [facility] DEVICE Right: FEMUR DISTAL [employer] [place] 02.205.07 5 / NONE / NONE Scr Indira Lk 5.0x85 - [id number] Implanted:Qty: 2 on 03/13/2011 at [facility] DEVICE Right: FEMUR DISTAL [employer] [place] 02.205.08 5 / NONE / NONE Scr Lk Sftp T25 5.0x44 - [id number] Implanted:Qty: 1 on 03/13/2011 at [facility] DEVICE Right: FEMUR DISTAL [employer] [place] 212.216 / NONE / NONE Scr Lk Sftp T25 5.0x65 - [id number] Implanted:Qty: 1 on 03/13/2011 at [facility] DEVICE Right: FEMUR DISTAL [employer] [place] 212.222 / NONE / NONE Plt Lp T Ti Str 4h - [id number] Implanted:Qty: 3 on 07/28/2014 by Cooper Shelley MD at [facility] DEVICE Right: SKULL [employer] [place] 421.504 / / Scr Matrix Sfdr 4mm - [id number] Implanted:Qty: 6 on 07/28/2014 by Cooper Shelley MD at [facility] DEVICE Right: SKULL [employer] [place] 04.503.10 4.01 / / Lead Linear 3-4 8 Contact 50cm - [id number] Implanted:Qty: 1 on 03/08/2016 by Zelalem Cohen DO at [facility] DEVICE N/A: OTHER-SEE DESCRIPTION [facility] 09/10/2017 [id number] 2500 / / [id number] Description:LUMBAR Lead Linear 3-4 8 Contact 50cm - [id number] Implanted:Qty: 1 on 03/08/2016 by Zelalem Cohen DO at [facility] DEVICE N/A: OTHER-SEE DESCRIPTION [employer] [facility] 09/10/2017 [id number] 2500 / / [id number] Description:LUMBAR Lead Linear 3-4 8 Contact 50cm - [id number] Implanted:Qty: 1 on 03/08/2016 by Zelalem Cohen DO at [facility] DEVICE N/A: OTHER-SEE DESCRIPTION [facility] 09/10/2017 [id number] 2500 / / [id number] Description:LUMBAR Lead Linear 3-4 8 Contact 50cm - [id number] Implanted:Qty: 1 on 03/08/2016 by Zelalem Cohen DO at [facility] DEVICE N/A: OTHER-SEE DESCRIPTION [facility] 09/10/2017 [id number] 2500 / / [id number] Description:LUMBAR Lead Linear 3-4 8 Contact 50cm - [id number] Implanted:Qty: 1 on 05/24/2016 by Zelalem Cohne DO at [facility] DEVICE N/A: SPINE LUMBAR POSTERIOR [facility] 01/31/2018 [id number] 2500 / [id number] / Lead Linear 3-4 8 Contact 50cm - [id number] Implanted:Qty: 1 on 05/24/2016 by Zelalem Cohen DO at [facility] DEVICE N/A: SPINE LUMBAR POSTERIOR [facility] 04/26/2018 [id number] 2500 / [id number] / Lead Linear 3-4 8 Contact 50cm - [id number] Implanted:Qty: 1 on 05/24/2016 by Zelalem Cohen DO at [facility] DEVICE N/A: SPINE LUMBAR POSTERIOR [facility] 04/26/2018 [id number] 2500 / [id number] / Lead Linear 3-4 8 Contact 50cm - [id number] Implanted:Qty: 1 on 05/24/2016 by Zelalem Cohen DO at [facility] DEVICE N/A: SPINE LUMBAR POSTERIOR [facility] 04/26/2018 [id number] 2500 / [id number] / Generator Pulse Spectra - [id number] Implanted:Qty: 1 on 05/24/2016 by Zelalem Cohen DO at [facility] DEVICE N/A: SPINE LUMBAR POSTERIOR [facility] 05/08/2018 [id number] 20 / [id number] / [id number] [employer] - [id number] Implanted:Qty: 1 on 05/24/2016 by Zelalem Cohen DO at [facility] DEVICE N/A: SPINE LUMBAR POSTERIOR [facility] 05/02/2018 [id number] 60 / / [id number] [employer] - [id number] Implanted:Qty: 1 on 05/24/2016 by Zelalem Cohen DO at [facility] DEVICE N/A: SPINE LUMBAR POSTERIOR [facility] 02/28/2018 [id number] 60 / / [id number] Advance Directives Latest Code Status on File [...] 5:44 PM 07/28/2014 6:50 PM Care Teams Office Services Coordinator Relationship Specialty Start Date End Date Franklin Squires MD [address] [facility] [place] [address] PCP - General Family Practice 03/08/16
--- OUTSIDE RECORDS SUMMARY | 2023-12-23 12:40 | XMS_ITS | Encounter Summary ---
Author Name Unknown Organization [facility] Address [address] [address] Care Team Providers Care Paper Bundler Name Role Phone Franklin Squires MD Primary Care Provider [phone] Encounter Details Date Type Department Care Team Description 12/11/2017 Correspondence [facility] Physical Medicine [address] [facility] [place], [place] [id number] May Randle MD [address] [place] [address] [employer] Social History Tobacco Use [...] filedocumented in this encounter Care Teams Paper Bundler Relationship Specialty Start Date End Date Franklin Squires MD 100 [facility] [place] [address] PCP - General Family Practice 03/08/16 documented as of this encounter
--- OUTSIDE RECORDS SUMMARY | 2023-12-23 12:40 | XMS_ITS | Encounter Summary ---
Author Name Unknown Organization [facility] Address [address], [place] [address] Care Team Providers Care Survey Compiler Name Role Phone Franklin Squires MD Primary Care Provider Encounter Details Date Type Department Care Team Description 11/23/2015 Correspondence External to External, [place] [address] [facility] Social History Tobacco Use Types Packs/Day [...] on filedocumented in this encounter Care Teams Survey Compiler Relationship Specialty Start Date End Date Franklin Squires MD [address] [facility] [place] [address] PCP - General Family Practice 03/08/16 documented as of this encounter
--- OUTSIDE RECORDS SUMMARY | 2023-12-23 12:40 | XMS_ITS | Encounter Summary ---
Author Name Unknown Organization [facility] Address [address], [place] [address] Care Team Providers Care Systems Integration Advisor Name Role Phone Franklin Squires MD Primary Care Provider Encounter Details Date Type Department Care Team Description 06/07/2015 Correspondence [facility] Radiology [address] [place] [address] Radiology, Provider MRI SAFETY SHEET AND COMPATIBILITY [...] on filedocumented in this encounter Care Teams Systems Integration Advisor Relationship Specialty Start Date End Date Franklin Squires MD 100 [facility] [place] [address] PCP - General Family Practice 03/08/16 documented as of this encounter
--- OUTSIDE RECORDS SUMMARY | 2023-12-23 12:40 | XMS_ITS | Encounter Summary ---
Author Name Unknown Organization [facility] Address [address] [place] [address] Care Team Providers Care Speeder Machine Operator Name Role Phone Franklin Squires [...] on filedocumented in this encounter Care Teams Speeder Machine Operator Relationship Specialty Start Date End Date Franklin Sqiures MD [address] [place], [place] [address] [address] PCP - General Family Practice 03/08/16 documented as of this encounter
--- OUTSIDE RECORDS SUMMARY | 2023-12-23 12:40 | XMS_ITS ---
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 Treatments may have been administered in another system. Resolved Problems Problem Noted Date Diagnosed Date Resolved Date Gait abnormality 01/17/2012 02/09/2015 Back pain 01/17/2012 02/09/2015 Paraplegia 04/04/2011 02/09/2015 Osteoporosis 03/06/2011 02/09/2015 Urinary tract infection 12/24/200603/11
--- OUTSIDE RECORDS SUMMARY | 2023-12-23 12:40 | XMS_ITS | Encounter Summary ---
Author Name Unknown Organization [facility] Address [address], [place] [address] Care Team Providers Care Outdoor Power Equipment Mechanic Name Role Phone Franklin Squires MD Primary Care Provider [phone] Encounter Details Date Type Department Care Team [...] filedocumented in this encounter Care Teams Outdoor Power Equipment Mechanic Relationship Specialty Start Date End Date Franklin Squires MD 100 [facility] [address] PCP - General Family Practice 03/08/16 documented as of this encounter
--- OUTSIDE RECORDS SUMMARY | 2023-12-23 12:40 | XMS_ITS | Encounter Summary ---
Author Name Unknown Organization [facility] Address [address], [place] [address] Care Team Providers Care Boat Hoist Operator Helper Name Role Phone Franklin Squires MD Primary Care Provider Encounter Details Date Type Department Care Team Description 07/08/2015 Correspondence [facility] Physical Therapy [address] [place] [address] Trudi Raymundo, PT [address] [place] [address] ADDENDUM FOR LETTER OF MEDICAL NECESSITY Social [...] on filedocumented in this encounter Care Teams Boat Hoist Operator Helper Relationship Specialty Start Date End Date Franklin Squires MD 100 [facility] [place] [address] PCP - General Family Practice 03/08/16 documented as of this encounter
--- OUTSIDE RECORDS SUMMARY | 2023-12-23 12:40 | XMS_ITS | Encounter Summary ---
Author Name Unknown Organization [facility] Address [address], [place] [address] Care Team Providers Care Operations Administrative Assistant Name Role Phone Franklin Squires MD Primary Care Provider [phone] Encounter Details Date Type Department Care Team Description 02/09/2016 Correspondence [facility] NeuroSurgery [address] [facility]. [place], [place] [id number] Jodi Aguila PA-C [address] [place] [address] PATIENT LIFT PRESCRIPTION Social History Tobacco Use [...] filedocumented in this encounter Care Teams Operations Administrative Assistant Relationship Specialty Start Date End Date Franklin Squires MD [address] [facility] [address] PCP - General Family Practice 03/08/16 documented as of this encounter
--- OUTSIDE RECORDS SUMMARY | 2023-12-23 12:40 | XMS_ITS | Encounter Summary ---
Author Name Unknown Organization [facility] Address [address] [place] [address] Care Team Providers Care First Crusher Name Role Phone Franklin Squires MD Primary Care Provider [phone] Encounter Details Date Type Department Care Team [...] on filedocumented in this encounter Care Teams First Crusher Relationship Specialty Start Date End Date Franklin Squires MD [address] [place], [place] [address] [address] PCP - General Family Practice 03/08/16 documented as of this encounter
--- OUTSIDE RECORDS SUMMARY | 2023-12-23 12:40 | XMS_ITS | Encounter Summary ---
Author Name Unknown Organization [facility] Address [address], [place] [address] Care Team Providers Care Stone Sandblaster Name Role Phone Franklin Squires MD Primary Care Provider [phone] Encounter Details Date Type Department Care Team Description 01/06/2016 Correspondence [facility] Radiology [address] [place] [address] Radiology, Provider MRI SAFETY SHEET AND COMPATIBILITY [...] on filedocumented in this encounter Care Teams Stone Sandblaster Relationship Specialty Start Date End Date Franklin Squires MD [address] [place] [address] [place] [address] PCP - General Family Practice 03/08/16 documented as of this encounter
--- OUTSIDE RECORDS SUMMARY | 2023-12-23 12:40 | XMS_ITS | Clinical Summary ---
Author Name Unknown Organization [employer] [facility] [employer] [facility] Address [place], [place] [address] Care Team Providers Care Pulmonary Disease Specialist Name Role Phone Zelalem Cohen MD Unavailable [phone] May Randle MD Unavailable [phone] Franklin Squires MD Primary Care Provider Fred Craft Unavailable [phone] Diane Charles MD Unavailable [phone] Julia Ware RN Unavailable [phone] Allergies Active Allergy Reactions Criticality Noted Date [...] bedIndications:Non-heal ing surgical wound, subsequent encounter Drive [employer] 8 inch low loss mattress and 1/2 rails. Semi-electric bed. Length of need 6 weeks. Bed drugless doctor:no 1 unit 0 018 Active acetaminophen (TYLENOL [...] 60mm, Cut-to-Fit 01/16 - 2 11/18. Item #[id number]. 1 Each 11 021 Active furosemide (LASIX) [...] once daily. 90 Tablet 3 024 Active oxyCODONE 10 mg tabletIndications:Chron ic pain syndrome TAKE ONE TABLET BY MOUTH EVERY 6 HOURS 120 Tablet 0 024 Active ciprofloxacin HCl (CIPRO) 750 mg tablet Take 750 mg by mouth two times daily. 0 024 Active amoxicillin-clavulanate 875-125 mg tablet (AUGMENTIN) Take 1 Tablet by mouth. 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),Anticoagulation monitoring, INR range 2-3,Anticoagulation monitoring, INR range 2-3,SDH (subdural hematoma) (HC) Take by mouth 11.25 mg (7.5 mg x 1.5) every [place]; 7.5 mg (7.5 mg x 1) all other days in the evening OR as directed 0 024 Active warfarin (COUMADIN) 5 mg tabletIndications: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 270 Capsule 3 022 2023 Discontinued donepeziL (ARICEPT) 5 mg tabletIndications:Cathrynu hailey Take 1 Tablet (5 mg) by [...] evening OR as directed 0 024 2023 Discontinued(R eorder (E-cancel not [...] evening OR as directed 0 024 2023 Discontinued(R eorder (E-cancel not sent)) Sodium hypochlorite (Dakin's Solution) 0.25 % solnIndications:Pressur e injury of left buttock, stage 4 (HC) Soak would bed for 10 minutes prior to dressing change 473 mL 5 024 2023 Discontinued Active Problems Problem Noted Date Diagnosed Date Suprapubic catheter 11/21/2023 Delusions of parasitosis 11/21/2023 Opioid dependence, uncomplicated 11/21/2023 Osteomyelitis, unspecified site, unspecified typ e 11/21/2023 Soft tissue infection 10/22/2023 Stage 4 pressure ulcer 10/22/2023 Peripheral neuropathy 06/24/2023 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 [...] delivery 04/16/2007 10/01/2007 Overview: S/P IVC Filter care home (current) use of anticoagulants 02/19/2007 09/27/2008 Depressive disorder, not elsewhere classified 02/14/20 07 01/15/2018 Abnormality of gait 12/24/2006 09/27/20 08 Urinary tract infection, site not specified 12/24/2006 01/15/2018 BENIGN ESSENTIAL HYPERTENSION 12/24/2006 04/17/2016 Overview: borderline Necrotizing fasciitis 2018 Type 2 diabetes mellitus Encounters Date Type Department Care Team Description 12/19/2023 1:50 PM PASTRY DECORATOR Office Visit [address] [address] Franklin Squires MD Recheck 12/19/[address] [address] Franklin Squires MD Refill Request (Dakin's Solution) 12/19/2023 Travel 12/18/2023 Anticoagulation (warfarin) [address] [address] , [facility] Anticoagulation (Acelis) 12/16/[address] [address] Franklin Squires MD Refill Request (Dakins 1/2 strength 0.25 soln) 12/13/[address] [address] Franklin Squires MD Form 12/12/[address] [address] Franklin Squires MD Refill Request (Gabapentin, Donepezil) 12/10/2023 Anticoagulation (warfarin) [address] [place] [address] 1, [facility] Anticoagulation (Acelis) 12/05/[address] [place] [address] Franklin Squires MD Form 12/03/2023 Anticoagulation (warfarin) [address] [place] [address] 1, [facility] Anticoagulation (acelis) 11/28/[address] [facility] [address] [place] [address] Franklin Squires MD Refill Request (Oxycodone) 11/28/[address] [place] [address] Franklin Squires MD Form 11/28/[address] [place] [address] Franklin Squires MD Questions (CHINESE) 11/26/2023 Anticoagulation (warfarin) [address] [place] [address] 1, [facility] Anticoagulation (Acelis) 11/21/2023 2:00 PM PASTRY DECORATOR - 11/21/2023 11:59 PM PASTRY DECORATOR Hospital Encounter [facility] [address] [place] [address] Soft tissue infection (Primary Dx) 11/21/2023 1:00 PM PASTRY DECORATOR Office Visit [address] [place] [address] Franklin Squires MD Diabetes 11/21/2023 Anticoagulation (warfarin) [facility] [address] [place] [address] 1, [facility] Anticoagulation 11/20/2023 1:53 PM PASTRY DECORATOR - 11/20/2023 11:59 PM PASTRY DECORATOR Hospital Encounter [facility] [address] [place] [address] Pressure injury of sacral region, stage 3 (HC) (Primary Dx); Soft tissue infection 11/20/2023 Travel 11/19/2023 Orders Only [facility] [address] [place] [address] Yudith Mcgraw, WOOL SUPPLIER 1 scan: PICC LINE, LABS AND INFUSION 11/18/2023 Orders Only [facility] Scanner 1 scan: (1-Ord) [place], [facility] LAB RESULTS, 11/18/2023 11/18/2023 Anticoagulation (warfarin) [facility] [address] [place] [address] , [facility] Anticoagulation (Acelis ) 11/18/[address] [place] [address] Franklin Squires MD Form 11/15/[address] [place] [address] Franklin Squires MD Form 11/14/[address] [place] [address] Franklin Squires MD Form 11/13/2023 1:00 PM PASTRY DECORATOR Nurse/Clinic Staff Only [address] [place] [address] Removal; Insert 11/13/[address] [place] [address] Diane Charles MD Medication Management 11/13/2023 Travel 11/12/[address] [facility] [address] [facility] [place] [address] Franklin Squires MD Form 11/08/2023 Anticoagulation (warfarin) [facility] 100 [facility] [place] [address] 1, [facility] Anticoagulation (acelis) 11/06/2023 Orders Only [facility] Scanner 1 scan: (1-Ord) [facility], INR 10/29/23 - 11/05/26, 11/06/2023 11/06/[address] [facility] [address] [place] [address] 1, [facility] Refill Request (Warfarin 5 mg ) 11/06/2023 Anticoagulation (warfarin) [facility] [address] [place] [address] , [facility] Anticoagulation (Chart update) 10/30/2023 Orders Only [facility] Scanner 1 scan: (1-Ord) [facility], SHARP DEBRIDEMENT DOWN TO BONE, 10/30/2023 10/29/2023 10:56 AM PASTRY DECORATOR - 10/29/2023 11:59 PM PASTRY DECORATOR Hospital Encounter [facility] [address] [facility] [place] [address] Yudith Mcgraw NP Soft tissue infection (Primary Dx) 10/29/2023 Travel 10/29/2023 Anticoagulation (warfarin) [facility] [address] [place] [address] 1, [facility] Anticoagulation (acelis) 10/28/2023 12:28 PM PASTRY DECORATOR - 10/28/2023 11:59 PM PASTRY DECORATOR Hospital Encounter [facility] [address] [facility] [place] [address] Yudith Mcgraw NP Soft tissue infection (Primary Dx) 10/28/[address] [facility] 100 [facility] [place] [address] Diane Charles MD <No scans attached> 10/27/2023 12:26 PM PASTRY DECORATOR - 10/27/2023 1:35 PM PASTRY DECORATOR Hospital Encounter [facility] [address] [place] [address] Yudith Mcgraw, Franklin Sorensen MD Soft tissue infection (Primary Dx) Discharge Disposition: Home Self Care 10/27/2023 Travel 10/26/2023 12:41 PM PASTRY DECORATOR - 10/26/2023 1:28 PM PASTRY DECORATOR Hospital Encounter [facility] [address] [place] [address] Yudith Mcgraw, Franklin Sorensen MD Soft tissue infection (Primary Dx) Discharge Disposition: Home Self Care 10/26/2023 Travel 10/25/2023 3:42 PM PASTRY DECORATOR - 10/25/2023 6:10 PM PASTRY DECORATOR Hospital Encounter [facility] [address] [place] [address] Yudith Mcgraw, CLEMENT Discharge Disposition: Home Self Care 10/25/2023 12:40 PM PASTRY DECORATOR - 10/25/2023 1:30 PM PASTRY DECORATOR Hospital Encounter [facility] [address] [place] [address] Yudith Mcgraw, Franklin Sorensen MD Soft tissue infection (Primary Dx) Discharge Disposition: Home Self Care 10/25/2023 Travel 10/25/2023 Anticoagulation (warfarin) [facility] [address] [place] [address] , [facility] Anticoagulation (acelis) 10/24/2023 12:24 PM PASTRY DECORATOR - 10/24/2023 11:59 PM PASTRY DECORATOR Hospital Encounter [facility] [address] [place] [address] Yudith Mcgraw NP Soft tissue infection (Primary Dx) 10/24/2023 Anticoagulation (warfarin) [facility] [address] [place] [address] , [facility] Anticoagulation (Chart update, interacting medication) 10/23/2023 1:30 PM PASTRY DECORATOR Nurse/Clinic Staff Only [facility] [address] [place] [address] Removal; Insert 10/23/2023 12:22 PM PASTRY DECORATOR - 10/23/2023 11:59 PM PASTRY DECORATOR Hospital Encounter [facility] [address] [place] [address] Yudith Mcgraw NP Soft tissue infection (Primary Dx) 10/23/2023 Orders Only [facility] Scanner 1 scan: (1-Ord) [facility], CT PELVIS W CON , 10/23/2023 10/23/2023 Travel 10/23/[address] [facility] [address] [place] [address] Franklin Squires MD Refill Request; Medication Management (Clarification of Pot Chlor ER (Disp) Tabs) 10/22/2023 Transcribe Orders [facility] [address] [place] [address] Yudith Mcgraw WOOL SUPPLIER 10/22/[address] [facility] [address] [place] [address] Franklin Squires MD Refill Request (Oxycodone, Lorazepam) 10/18/2023 Anticoagulation (warfarin) [address] [address] [facility] Anticoagulation (acelis) 10/16/[address] [address] Franklin Squires MD Refill Request (Duloxetine) 10/07/[address] [facility] [address] [place] [address] Franklin Squires MD Refill Request (Famotidine, Bupropion) 10/02/2023 2:00 PM PASTRY DECORATOR Nurse/Clinic Staff Only [address] [place] [address] Removal; Insert 10/02/2023 Travel 09/28/2023 Anticoagulation (warfarin) [address] [place] [address] 1, [facility] Anticoagulation (Acelis) 09/24/[address] [place] [address] Franklin Squires MD Refill Request (Oxycodone) from Last 3 Months Immunizations Name Administration Dates Next Due COVID-19 vaccine ([employer] 30mcg/0.3mL) 12YO+ BIVALENT PF, MDV 10/22/2022 COVID-19 vaccine ([employer] 30mcg/0.3mL) PF, MDV 01/25/2021,01/02/2021 Influenza A [...] Answer Date Recorded PHQ-2 TOTAL SCORE 0 12/19/2023 Social Connections Answer Date Recorded Frequency of [...] Sign Reading Time Taken Comments Blood Pressure 110/62 12/19/2023 1:51 PM PASTRY DECORATOR Pulse 84 12/19/2023 1:51 PM PASTRY DECORATOR Temperature 36.4 ??C (97.6 ??F) 11/21/2023 2:37 PM CS T Respiratory Rate 20 12/19/2023 1:51 PM PASTRY DECORATOR Oxygen Saturation 95% 11/21/2023 2:37 PM PASTRY DECORATOR Inhaled Oxygen Concentration - - Weight 99.8 [...] Wellness for age 65+ 02/07/2018 02/06/2017, 10/19/2015 COVID-19 vaccine series ( season) 2023 10/22/2022, 08/06/2021, 01/25/2021, Additional history exists Influenza for age 65+ 07/12/2023 10/22/2022 , 09/03/2021, 09/03/2021, Additional history exists Depression screening for age 12+ 12/19/2024 12/19/2023, 12/19/2023, 06/29/2022, Additional history exists Tetanus booster 05/28/2032 05/28/2022, 06/28/2011 Tdap Completed 06/28/2011 Pneumococcal series for age 65+ Completed 10/19/2015, 08/13/2011, 10/06/2009, Additional history exists Procedures Procedure Name Priority Date/Time Associated Diagnosis Comments HOME MONITOR AC Routine 12/18/2023 12:00 AM PASTRY DECORATOR HOME MONITOR AC Routine 12/10/2023 12:00 AM PASTRY DECORATOR HOME MONITOR AC Routine 12/03/2023 12:00 AM PASTRY DECORATOR HOME MONITOR AC Routine 11/26/2023 12:00 AM PASTRY DECORATOR SCAN CORRESP-LABORATORY RESULTS 11/21/2023 3:07 PM PASTRY DECORATOR HEMOGLOBIN A1C STAT 11/21/2023 1:04 PM PASTRY DECORATOR 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) PROTIME-INR STAT 11/21/2023 1:04 PM PASTRY DECORATOR 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) Anticoagulation monitoring, INR range 2-3 HOME MONITOR AC Routine 11/18/2023 12:00 AM PASTRY DECORATOR HOME MONITOR AC Routine 11/08/2023 12:00 AM PASTRY DECORATOR SCAN-LABORATORY REPORT 11/06/2023 12:00 AM PASTRY DECORATOR INR,POCT Routine 11/05/2023 INR,POCT Routine 11/04/2023 INR,POCT Routine 11/03/2023 INR,POCT Routine 11/02/2023 INR,POCT Routine 11/01/2023 INR,POCT Routine 10/31/2023 INR,POCT Routine 10/30/2023 SCAN-OPERATIVE/PROCED URE REPORT 10/30/2023 12:00 AM PASTRY DECORATOR INR,POCT Routine 10/29/2023 HOME MONITOR AC Routine 10/29/2023 12:00 AM PASTRY DECORATOR XR CHEST 1 VIEW PORTABLE STAT 10/25/2023 5:07 PM PASTRY DECORATOR HOME MONITOR AC Routine 10/25/2023 12:00 AM PASTRY DECORATOR SCAN-OPERATIVE/PROCED URE REPORT 10/25/2023 12:00 AM PASTRY DECORATOR SCAN-CT INTERPRETATION 10/23/2023 12:00 AM PASTRY DECORATOR HOME MONITOR AC Routine 10/18/2023 12:00 AM PASTRY DECORATOR HOME MONITOR AC Routine 09/28/2023 12:00 AM PASTRY DECORATOR from Last 3 Months Results * (ABNORMAL) HOME MONITOR AC (12/18/2023 12:00 AM PASTRY DECORATOR) Only the most recent of10 resultswithin the time period is included. PATIENT REPORTED HOME INR 1.8(L) 2.00 - 3.00 [facility] 12/18/2023 Franklin Squires MD OTHER Performing Organization Address City/[facility]/ZIP Co de Phone Number [facility] [address] [place] [address] * SCAN CORRESP-LABORATORY RESULTS (11/21/2023 3:07 PM PASTRY DECORATOR) Scanner OTHER * (ABNORMAL) PROTIME-INR (11/21/2023 1:04 PM PASTRY DECORATOR) Pathologist [facility] INR 2.6(H) <1.3 11/21/2023 3:41 PM PASTRY DECORATOR [facility] PROTIME 28.2(H) 10.3 - 12.3 sec 11/21/2023 3:41 PM PASTRY DECORATOR [facility] Blood BLOOD SPECIMEN / Unknown Venipuncture / Unknown 11/21/2023 1:04 PM PASTRY DECORATOR 11/21/2023 1:05 PM PASTRY DECORATOR Narrative [facility] - 11/21/2023 3:41 PM PASTRY DECORATOR ?Therapeutic Range 2.0-3.0 for most anticoagulated patients [...] Franklin Squires MD HEMATOLOGY Performing Organization Address City/[facility]/ZIP Co de Phone Number [facility] [address] [place] [address] * HEMOGLOBIN A1C MONITORING (POCT) (11/21/2023 1:04 PM PASTRY DECORATOR) HEMOGLOBIN A1C MONITORING (POCT) 6.1 <=6.4 % 11/21/2023 1:12 PM PASTRY DECORATOR [facility] Blood BLOOD SPECIMEN / Unknown Venipuncture / Unknown 11/21/2023 1:04 PM PASTRY DECORATOR 11/21/2023 1:05 PM PASTRY DECORATOR Narrative [facility] - 11/21/2023 1:12 PM PASTRY DECORATOR ? (<=6.9%) ? Indicates good control ? (7.0% to 7.9%) ? Indicates fair control ? (>=8.0%) ? Indicates poor control ?? NOTE: ??These thresholds are guidelines and ?individual targets may vary. Falsely low levels may be seen with: Recent Transfusion, Recent Significant Blood Loss, Hemolytic Diseases, or Falsely elevated levels may be seen with: Untreated Anemias, Splenectomy ? Franklin Squires MD CHEMISTRY [facility] [address] [place] [address] * SCAN-LABORATORY REPORT (11/06/2023 12:00 AM PASTRY DECORATOR) Scanner OTHER * INR,POCT (11/05/2023) Only the most recent of8 resultswithin the time period is included. INR 2.6 [facility] Blood BLOOD SPECIMEN / Unknown 11/05/2023 Patient Reported LABORATORY [facility] [address] [place] [address] * SCAN-OPERATIVE/PROCEDURE REPORT (10/30/2023 12:00 AM PASTRY DECORATOR) Scanner OTHER * XR CHEST 1 VIEW PORTABLE (10/25/2023 5:07 PM PASTRY DECORATOR) Anatomical Region Laterality Modality HEART, THORAX, CHEST Digital Rad iography 10/25/2023 6:03 PM PASTRY DECORATOR Impressions 10/25/2023 6:03 PM PASTRY DECORATOR 1. Right PICC line is present with the tip at the cavoatrial junction. Dictated by Gordy Malik MD @ 10/25/2023 6:03:07 PM Dictated by: Gordy Malik MD @ 10/25/2023 18:03:23 (Electronically Signed) Narrative 10/25/2023 6:03 PM PASTRY DECORATOR For Patients: ??As a result of the [...] IMAGING * SCAN-OPERATIVE/PROCEDURE REPORT (10/25/2023 12:00 AM PASTRY DECORATOR) Narrative 10/25/2023 12:00 AM PASTRY DECORATOR Ordered by an unspecified provider. Other Clinical Staff OTHER * SCAN-CT INTERPRETATION (10/23/2023 12:00 AM PASTRY DECORATOR) Anatomical Region Laterality Modality Other Scanner OTHER [...] 12 months since positive culture): resides in acute/longwall shearer operator care, receiving hemodialysis, has chronic open wounds/skin damage, has long-term percutaneous indwelling medical devices Exclusions for nares collection (if <12 months since positive culture) include all of the previous exclusions plus patients on antibiotics 7 days prior to collection 03/13/2018 2023 Advance Directives Documents on File Type Date Recorded Patient Covering And Lining Supervisor Expl anation Healthcare Directive 05/09/2023 023 Healthcare [...] Status Discussion: Per Existing Order Care Teams Pulmonary Disease Specialist Relationship Specialty Start Date End Date Franklin Squires MD [address] [place] [address] PCP - General Family Practice 10/18/15 Zelalem Cohen MD Physical Therapist 03/13/12 May Randle MD Physical Medicine and Rehabilitation 03/13/12 Luana, FAUSTINO Krueger [address] [facility] [place] [address] Core Drill Operator Helper 05/03/17 Diane Charles MD [address] [place] [address] Surgery - Urology 01/17/23 Julia Ware, RN [address] [place] [address] Registered Nurse 07/17/23
--- OUTSIDE RECORDS SUMMARY | 2023-12-23 12:41 | XMS_ITS | Encounter Summary ---
Author Name Unknown Organization [facility] Address [address] [place] [address] Care Team Providers Care Lock Setter Name Role Phone Franklin Squires MD Primary Care Provider [phone] Encounter Details Date Type Department Care Team Description 08/22/2014 Outside Hospital External to [facility] HOSP-D/C SUMMARY Social History Tobacco [...] on filedocumented in this encounter Care Teams Lock Setter Relationship Specialty Start Date End Date Franklin Squires MD [address] [facility] [place] [address] PCP - General Family Practice 03/08/16 documented as of this encounter
--- OUTSIDE RECORDS SUMMARY | 2023-12-23 12:41 | XMS_ITS | Encounter Summary ---
Author Name Unknown Organization [facility] Address [address], [place] [address] Care Team Providers Care Stake Setter Name Role Phone Franklin Squires MD Primary Care Provider [phone] Encounter Details Date Type Department Care Team Description 04/24/2012 Correspondence [facility] Radiology [address] [place] [address] Radiology, Provider MRI SAFETY SHEET AND COMPATIBILITY [...] on filedocumented in this encounter Care Teams Stake Setter Relationship Specialty Start Date End Date Franklin Squires MD 100 [facility] [place] [address] PCP - General Family Practice 03/08/16 documented as of this encounter
--- OUTSIDE RECORDS SUMMARY | 2023-12-23 12:41 | XMS_ITS | Encounter Summary ---
Author Name Unknown Organization [facility] Address [address], [place] [address] Care Team Providers Care Cleat Blanker Name Role Phone Franklin Squires MD Primary Care Provider [phone] Encounter Details Date Type Department Care Team Description 11/13/2012 Correspondence [facility] Radiology [address] [place] [address] Radiology, Provider MRI SAFETY SHEET AND COMPATIBILITY [...] RADIOLOGY, PROVIDER - 11/13/2012 12:00 AM CST LEX DIRECTOR documented in this encounter Plan of Treatment Not on file documented as of this encounter Visit Diagnoses Not on filedocumented in this encounter Care Teams Cleat Blanker Relationship Specialty Start Date End Date Franklin Squires MD 100 [facility] [place] [address] PCP - General Family Practice 03/08/16 documented as of this encounter
--- OUTSIDE RECORDS SUMMARY | 2023-12-23 12:41 | XMS_ITS | Encounter Summary ---
Author Name Unknown Organization [facility] Address [address] [place] [address] Care Team Providers Care Interpretive Naturalist Name Role Phone Franklin Squires MD Primary Care Provider Encounter Details Date Type Department Care Team Description 08/20/2014 Outside Hospital External to [facility] HOSP-H/P Social History Tobacco Use [...] on filedocumented in this encounter Care Teams Interpretive Naturalist Relationship Specialty Start Date End Date Franklin Squires MD [address] [facility] [address] PCP - General Family Practice 03/08/16 documented as of this encounter
--- OUTSIDE RECORDS SUMMARY | 2023-12-23 12:41 | XMS_ITS | Encounter Summary ---
Author Name Unknown Organization [facility] Address [address] [place] [address] Care Team Providers Care Nut And Bolt Assembler Name Role Phone Franklin Squires MD Primary Care Provider [phone] Encounter Details Date Type Department Care Team [...] on filedocumented in this encounter Care Teams Nut And Bolt Assembler Relationship Specialty Start Date End Date Franklin Squires MD 100 [facility] [place] [address] PCP - General Family Practice 03/08/16 documented as of this encounter
--- OUTSIDE RECORDS SUMMARY | 2023-12-23 12:41 | XMS_ITS | Encounter Summary ---
Author Name Unknown Organization [facility] Address [address] [address] Care Team Providers Care City Marshal Name Role Phone Franklin Squires MD Primary Care Provider Encounter Details Date Type Department Care Team Description 11/10/2014 Correspondence [facility] Physical Therapy [address] [place] [address] Trudi Raymundo, PT [address] [place] [address] LETTER OF MEDICAL NECESSITY Social History Tobacco [...] on filedocumented in this encounter Care Teams City Marshal Relationship Specialty Start Date End Date Franklin Squires MD [address] [facility] [place] [address] PCP - General Family Practice 03/08/16 documented as of this encounter
--- OUTSIDE RECORDS SUMMARY | 2023-12-23 12:41 | XMS_ITS | Encounter Summary ---
Author Name Unknown Organization [facility] Address [address] [address] Care Team Providers Care Hoop Riveter Name Role Phone [place] Squires MD Primary Care Provider Encounter Details Date Type Department Care Team Description 07/28/2014 Outside Hospital External to External, Provider No address [address] ER VISIT/TRANSFER Social History Tobacco Use [...] on filedocumented in this encounter Care Teams Hoop Riveter Relationship Specialty Start Date End Date [place] Squires MD [address] [place] [address] [place] [address] PCP - General Family Practice 03/08/16 documented as of this encounter
--- OUTSIDE RECORDS SUMMARY | 2023-12-23 12:41 | XMS_ITS | Encounter Summary ---
Author Name Unknown Organization [facility] Address [address] [place] [address] Care Team Providers Care Desulfurizer Operator Name Role Phone [place] Squires MD [...] on filedocumented in this encounter Care Teams Desulfurizer Operator Relationship Specialty Start Date End Date [place] Squires MD [address] [place], [place] [address] [address] PCP - General Family Practice 03/08/16 documented as of this encounter
--- OUTSIDE RECORDS SUMMARY | 2023-12-23 12:41 | XMS_ITS | Encounter Summary ---
Author Name Unknown Organization [facility] Address [address] [address] Care Team Providers Care Marketing Copywriter Name Role Phone [place] Squires MD Primary Care Provider Encounter Details Date Type Department Care Team Description 05/04/2014 [facility] Physical Medicine 401 [facility]. [place], [place] [id number] May Randle MD [address] [place] [address] LETTER OF MEDICAL NECESSITY FOR A WHEELCHAIR [...] filedocumented in this encounter Care Teams Marketing Copywriter Relationship Specialty Start Date End Date [place] Squires MD [facility] [address] PCP - General Family Practice 03/08/16 documented as of this encounter
--- OUTSIDE RECORDS SUMMARY | 2023-12-23 12:41 | XMS_ITS | Encounter Summary ---
Author Name Unknown Organization [facility] Address [address], [place] [address] Care Team Providers Care Radiation / Chemistry Technician Name Role Phone [place] Squires MD Primary Care Provider [phone] Encounter Details Date Type Department Care Team Description 12/14/2014 [facility] 401 Physical Medicine [address] [facility] [place] [address] May Randle MD [address] [place] [address] DETAILED PRODUCT DESCRIPTION Social History Tobacco Use [...] on filedocumented in this encounter Care Teams Radiation / Chemistry Technician Relationship Specialty Start Date End Date [place] Squires MD 100 [facility] [place] [address] PCP - General Family Practice 03/08/16 documented as of this encounter
--- OUTSIDE RECORDS SUMMARY | 2023-12-23 12:41 | XMS_ITS | Encounter Summary ---
Author Name Unknown Organization [facility] Address [address] [place] [address] Care Team Providers Care Lathe Hand Name Role Phone [place] Squires MD Primary Care Provider Encounter Details Date Type Department Care Team Description 10/26/2013 Correspondence [facility] Physical Therapy [address] [place] [address] Trudi Raymundo, PT [address] [place], [place] [id number] LETTER OF MEDICAL NECESSITY Social History Tobacco [...] Raymundo, PT - 10/26/2013 12:00 AM CST R SERVICES TEAM LEADER documented in this encounter Plan of Treatment Not on file documented as of this encounter Visit Diagnoses Not on filedocumented in this encounter Care Teams Lathe Hand Relationship Specialty Start Date End Date [place] Squires MD [address] [facility] [place] [address] PCP - General Family Practice 03/08/16 documented as of this encounter
--- OUTSIDE RECORDS SUMMARY | 2023-12-23 12:41 | XMS_ITS | Encounter Summary ---
Author Name Unknown Organization [facility] Address [address] [place] [address] Care Team Providers Care Kennel Technician Name Role Phone [place] Squires MD Primary Care Provider [phone] Encounter Details Date Type Department Care Team Description 07/23/2013 [facility] 401 Interventional Pain Management 401 [facility] [place] [address] Zelalem Cohen DO [address] [place] [address] [employer] S[employer] Social History Tobacco Use Types [...] Cohen MD - 07/23/2013 12:00 AM CDT ASSOCIATE documented in this encounter Plan of Treatment Not on file documented as of this encounter Visit Diagnoses Not on filedocumented in this encounter Care Teams Kennel Technician Relationship Specialty Start Date End Date [place] Squires MD [address] [place] [address] PCP - General Family Practice 03/08/16 documented as of this encounter
--- OUTSIDE RECORDS SUMMARY | 2023-12-23 12:41 | XMS_ITS | Encounter Summary ---
Author Name Unknown Organization [facility] Address [address], [place] [address] Care Team Providers Care Crystal Flat Grinder Name Role Phone [place] Squires MD Primary Care Provider [phone] Encounter Details Date Type Department Care Team Description 06/11/2014 [facility] 401 Physical Medicine 401 [facility] [place] [address] May Randle MD [address] [place] [address] [facility] Social History Tobacco Use Types Packs/Day [...] filedocumented in this encounter Care Teams Crystal Flat Grinder Relationship Specialty Start Date End Date [place] Squires MD 100 [facility] [place] [address] PCP - General Family Practice 03/08/16 documented as of this encounter
--- OUTSIDE RECORDS SUMMARY | 2023-12-23 12:41 | XMS_ITS | Encounter Summary ---
Author Name Unknown Organization [facility] Address [address], [place] [address] Care Team Providers Care Printing Roller Polisher Name Role Phone [place] Squires MD Primary Care Provider Encounter Details Date Type Department Care Team Description 04/20/2013 Correspondence [facility] Radiology [address] [place] [address] Radiology, Provider MRI SAFETY SHEET AND COMPATIBILITY [...] on filedocumented in this encounter Care Teams Printing Roller Polisher Relationship Specialty Start Date End Date [place] Squires MD 100 [facility] [place] [address] PCP - General Family Practice 03/08/16 documented as of this encounter
--- OUTSIDE RECORDS SUMMARY | 2023-12-23 12:41 | XMS_ITS | Encounter Summary ---
Author Name Unknown Organization [facility] Address [address] [place] [address] Care Team Providers Care Glass Cutting Machine Operator Name Role Phone [place] Squires MD Primary Care Provider Encounter Details Date Type Department Care Team Description 08/20/2014 Outside Hospital External to [facility] Social History Tobacco Use [...] on filedocumented in this encounter Care Teams Glass Cutting Machine Operator Relationship Specialty Start Date End Date [place] Squires MD 100 [facility] [place] [address] PCP - General Family Practice 03/08/16 documented as of this encounter
--- OUTSIDE RECORDS SUMMARY | 2023-12-23 12:41 | XMS_ITS | Encounter Summary ---
Author Name Unknown Organization [facility] Address [address] [address] Care Team Providers Care Customs And Immigration Officer Name Role Phone [place] Squires MD Primary Care Provider Encounter Details Date Type Department Care Team Description 12/16/2013 Correspondence [facility] Radiology [address] [place] [address] Radiology, Provider MRI SAFETY SHEET AND COMPATIBILITY [...] Radiology, Provider - 12/16/2013 12:00 AM CST TIONAL REHABILITATION SPECIALIST documented in this encounter Plan of Treatment Not on file documented as of this encounter Visit Diagnoses Not on filedocumented in this encounter Care Teams Customs And Immigration Officer Relationship Specialty Start Date End Date [place] Squires MD 100 [facility] [place] [address] PCP - General Family Practice 03/08/16 documented as of this encounter
--- OUTSIDE RECORDS SUMMARY | 2023-12-23 12:41 | XMS_ITS | Encounter Summary ---
Author Name Unknown Organization [facility] Address [address] [place] [address] Care Team Providers Care Shuttle Fixer Name Role Phone [place] Squires MD Primary Care Provider Encounter Details Date Type Department Care Team Description 09/17/2013 Correspondence External to External, [place] [address] EMPOWERMENT RULES Social History Tobacco Use Types [...] Provider - 09/17/2013 12:00 AM CST R MANGLE TENDER documented in this encounter Plan of Treatment Not on file documented as of this encounter Visit Diagnoses Not on filedocumented in this encounter Care Teams Shuttle Fixer Relationship Specialty Start Date End Date [place] Squires MD 100 [facility] [place] [address] PCP - General Family Practice 03/08/16 documented as of this encounter
--- OUTSIDE RECORDS SUMMARY | 2023-12-23 12:41 | XMS_ITS | Encounter Summary ---
Author Name Unknown Organization [facility] Address [address] [address] Care Team Providers Care Player Manager Name Role Phone [place] Squires MD Primary Care Provider Encounter Details Date Type Department Care Team Description 02/05/2014 Correspondence [facility] Physical Therapy [address] [place] [address] Trudi Raymundo, PT [address] [place] [address] LETTER OF MEDICAL NECESSITY FOR A WHEELCHAIR [...] [place] Squires MD 100 [facility] [place] [address] PCP - General Family Practice 03/08/16 documented as of this encounter
--- OUTSIDE RECORDS SUMMARY | 2023-12-23 12:41 | XMS_ITS | Encounter Summary ---
Author Name Unknown Organization [facility] Address [address] [place] [address] Care Team Providers Care Marine Drafter Name Role Phone [place] Squires MD Primary Care Provider Encounter Details Date Type Department Care Team Description 06/04/2014 [facility] 401 Interventional Pain Management 401 [facility] [place] [address] Zelalem Cohen, DO [address] [place] [address] MEDICAID PT INFORMATION EMPI RECOVERY Social History [...] on filedocumented in this encounter Care Teams Marine Drafter Relationship Specialty Start Date End Date [place] Squires MD 100 [facility] [place] [address] PCP - General Family Practice 03/08/16 documented as of this encounter
--- OUTSIDE RECORDS SUMMARY | 2023-12-23 12:41 | XMS_ITS | Encounter Summary ---
Author Name Unknown Organization [facility] Address [address] [place] [address] Care Team Providers Care Tractor Mechanic Helper Name Role Phone [place] Squires MD Primary Care Provider Encounter Details Date Type Department Care Team Description 01/08/2013 Scanned History External to Transferred Record, Provider [facility] Social History Tobacco Use Types Packs/Day [...] on filedocumented in this encounter Care Teams Tractor Mechanic Helper Relationship Specialty Start Date End Date [place] Squires MD 100 [facility] [address] PCP - General Family Practice 03/08/16 documented as of this encounter
--- OUTSIDE RECORDS SUMMARY | 2023-12-23 12:41 | XMS_ITS | Encounter Summary ---
Author Name Unknown Organization [facility] Address [address] [address] Care Team Providers Care Instrument Setter Name Role Phone [place] Squires MD Primary Care Provider Encounter Details Date Type Department Care Team Description 09/07/2014 Correspondence [facility] Radiology [address] [place] [address] Radiology, Provider MRI SAFETY SHEET AND COMPATIBILITY [...] on filedocumented in this encounter Care Teams Instrument Setter Relationship Specialty Start Date End Date [place] Squires MD 100 [facility] [place] [address] PCP - General Family Practice 03/08/16 documented as of this encounter
--- OUTSIDE RECORDS SUMMARY | 2023-12-23 12:41 | XMS_ITS | Encounter Summary ---
Author Name Unknown Organization [facility] Address [address], [place] [address] Care Team Providers Care Facility Manager Histology Name Role Phone [place] Squires MD Primary Care Provider Encounter Details Date Type Department Care Team Description 03/11/2014 [facility] 401 Interventional Pain Management 401 [place] [address] Zelalem Cohen, DO [address] [place] [address] EMPI Social History Tobacco Use Types Packs/Day [...] on filedocumented in this encounter Care Teams Facility Manager Histology Relationship Specialty Start Date End Date [place] Squires MD 100 [facility] [place] [address] PCP - General Family Practice 03/08/16 documented as of this encounter
== END 2023-12-23 12:37 | disposition home or self-care (01) ==
LOC: WOUND 12:36
PROVIDERS: PCP Family Medicine; Visit Provider Physician Assistant
DX: M86.18 Other acute osteomyelitis, other site (principal); L89.324 Pressure ulcer of left buttock, stage 4; G82.50 Quadriplegia, unspecified
CPT/HCPCS: 97597; 97605

== ENCOUNTER 2023-12-30 12:42 | Outpatient (CLI) | payer MEDICARE, OTHER, SELFPAY ==
--- OUTSIDE RECORDS SUMMARY | 2023-12-30 12:44 | XMS_ITS | Continuity of Care Document ---
Author Name [facility] Organization [facility] Care Team Providers Care Plant Taxonomist Name Role Phone [facility] Unavailable Unavailable Problems Combined list of problems from 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 It does not include entries that were removed or entered in error. Problem Status Onset Date Problem Type Date of Resolution Comments Source Abnormal liver function Active Condition [facility] Anemia ([facility] 352251507) Active Condition [facility] Anxiety ([facility] 22389388) Active Condition [facility] Autonomic dysreflexia Active Condition [facility] Chronic Pain Syndrome ([facility] 354439388) Active Condition [facility] Colostomy present Active Condition [facility] Constipation ([facility] 32999251) Active Condition [facility] Continuous opioid dependence Active Condition [facility] COPD - Chronic Obstructive Pulmonary Disease ([facility] 25836174) Active Condition [facility] Dementia Active Condition [facility] Depression ([facility] 90310678) Active Condition [facility] Diabetes Mellitus Type 2 (SCT 63184534) Active Condition [facility] Ependymoma of spinal cord Active Condition [facility] Hearing Loss ([facility] 80661806) Active Condition [facility] History of Deep Vein Thrombosis ([facility] 328097742) Active Condition [facility] History of pressure injury Active Condition [facility] HTN - Hypertension ([facility]CT 89942618) Active Condition [facility] Hyperlipidemia ([facility] 45533231) Active Condition [facility] Hyponatremia Active Condition [facility] Long-term current use of anticoagulant Active Condition [facility] Neurogenic Bladder ([facility] 048018600) Active Condition [facility] Neurogenic bowel Active Condition [facility] Osteoporosis ([facility] 19668925) Active Condition [facility] Paraplegia Active Condition [facility] Spasticity Active Condition [facility] Suprapubic urinary catheter in situ Active Condition [facility] Supraventricular tachycardia Active Condition [facility] Tinnitus ([facility] 28978206) Active Condition [facility] Vitamin D Deficiency ([facility] 3342476) Active Condition [facility] Diagnosis: ICD-10-CM Z73.6 Limitation of activities due to disability Active Diagnosis [facility] Diagnosis: ICD-10-CM G82.20 Paraplegia, unspecified Active Diagnosis [facility] Diagnosis: ICD-10-CM Z43.3 Encounter for attention to colostomy Active Diagnosis [facility] Diagnosis: ICD-10-CM Z71.3 Dietary counseling and surveillance Active Diagnosis [facility] Diagnosis: ICD-10-CM F32.A Depression, unspecified Active Diagnosis [facility] Diagnosis: ICD-10-CM R26.9 Unspecified abnormalities of gait and mobility Active Diagnosis [facility] Medications Combined list of outpatient medications from [...] DAY NEEDED ORALLY ACTIVE Jagdish BARRETT 2022 [facility] AMLODIPINE BESYLATE (AMLODIPINE BESYLATE), 5 MG, TABLET, ORAL, [employer] 1000 ea. BOTTLE Active [id number] 2023 Pharmac y Data Transac tion Service Facilit y AMLODIPINE BESYLATE 2.5MG TAB TAKE TWO TABLETS BY MOUTH EVERY MORNING ORALLY ACTIVE Jagdish BARRETT 2022 [facility] AMOX TR-POTASSIU M CLAVULANATE (AMOXICILLI N/POTASSIUM CLAV), 875-125 MG, TABLET, ORAL, [employer], 20 ea. BOTTLE Active [id number] 2022 Pharmac y Data Transac tion Service Facilit y AMOXICILLIN -CLAVULANAT E POTASS (amoxicilli n/potassium clavulanate ), 875-125 MG, TABLET, ORAL, [employer],, 20 ea. BOTTLE Active [id number] 4 2023 Pharmac y Data Transac tion Service Facilit y ARIPIPRAZOL E (aripiprazo le), 2 MG, TABLET, ORAL, [employer], 500 ea. BOTTLE Active [id number] 4 2023 Pharmac y Data Transac tion Service Facilit y ARIPIPRAZOL E TAB TAKE 2MG BY MOUTH TWICE A DAY ORALLY ACTIVE Jye HANSON 2021 [facility] ATORVASTATI N CA 80MG TAB TAKE ONE-HALF TABLET BY MOUTH EVERY DAY ORALLY ACTIVE Jey HANSON 2021 [facility] BACLOFEN (baclofen), 20 MG, TABLET, ORAL, [employer] 1000 ea. BOTTLE Active [id number] 4 2023 Pharmac y Data Transac tion Service Facilit y BACLOFEN 20MG TAB TAKE TWO TABLETS BY MOUTH THREE TIMES A DAY ORALLY ACTIVE Jagdish BARRETT [address] [place] [address] [facility] BUPROPION HCL 150MG 12HR TAB,SA TAKE ONE TABLET BY MOUTH TWICE A DAY ORALLY ACTIVE Jey HANSON 2021 [facility] CEPHALEXIN 250MG CAP TAKE 1 CAPSULE BY MOUTH EVERY DAY ORALLY ACTIVE Jey HANSON 2021 [facility] CHOLECALCIF GILSON 25MCG (1,000UNIT) TAB TAKE ONE TABLET BY MOUTH EVERY DAY ORALLY ACTIVE Jey HANSON 2021 [facility] CIPROFLOXAC IN HCL (CIPROFLOXA SHAR HCL), 750 MG, TABLET, ORAL, [employer], 50 ea. BOTTLE Active [id number] 2023 Pharmac y Data Transac tion Service Facilit y DONEPEZIL HCL (DONEPEZIL HCL), 5 MG, TABLET, ORAL, [employer] 1000 ea. BOTTLE Cancele d [id number] : 2023 Pharmac y Data Transac tion Service Facilit y DONEPEZIL HCL (DONEPEZIL HCL), 5 MG, TABLET, ORAL, [employer] 1000 ea. BOTTLE Active [id number] 2023 Pharmac y Data Transac tion [...] GABAPENTIN (gabapentin ), 400 MG, CAPSULE, ORAL, [employer] 500 ea. BOTTLE Active [id number] 2023 Pharmac y Data Transac tion Service Facilit y GABAPENTIN 400MG CAP TAKE 1 CAPSULE BY MOUTH THREE TIMES A DAY ORALLY ACTIVE Jey HANSON 2021 [facility] LORAZEPAM (lorazepam) , 0.5 MG, TABLET, ORAL, [employer], 1000 ea. BOTTLE Active [id number] 2023 Pharmac y Data Transac tion Service Facilit y LORAZEPAM 0.5MG TAB TAKE ONE TABLET BY MOUTH THREE TIMES A DAY AND TAKE TWO TABLETS BY MOUTH AT BEDTIME ORALLY ACTIVE Jagdish BARRETT N 2022 [facility] MILK OF MAGNESIA TAKE 30ML BY MOUTH EVERY DAY NEEDED ORALLY ACTIVE Jey HANSON 2021 [facility] MULTIVITAMI NS CAP/TAB TAKE ONE TABLET BY MOUTH EVERY DAY ORALLY ACTIVE Jey HANSON 2021 [facility] NALOXONE HCL 4MG/SPRAY SOLN,SPRAY, NASAL SPRAY 1 DOSE IN ONE NOSTRIL DIRECTED PRN NOSTRI L ACTIVE Jagdish BARRETT N [address] [address] [facility] OXYCODONE HCL (OXYCODONE HCL), 10 MG, TABLET, ORAL, [employer] 100 ea. BOTTLE Active [id number] 2023 Pharmac y Data Transac tion Service Facilit y OXYCODONE HCL (OXYCODONE HCL), 10 MG, TABLET, ORAL, [employer] 100 ea. BOTTLE Active [id number] 3 2022 Pharmac y Data Transac tion Service Facilit y OXYCODONE HCL 5MG TAB TAKE TWO TABLETS BY MOUTH FOUR TIMES A DAY ORALLY ACTIVE Jagdish BARRETT 2022 [facility] POTASSIUM CHLORIDE (potassium chloride), 20 MEQ, TAB ER PRT, ORAL, [employer], 100 ea. BOTTLE Active [id number] 3 2023 Pharmac y Data Transac tion Service Facilit y POTASSIUM CHLORIDE 20MEQ TAB,SA (DISPERSIBL E) TAKE ONE TABLET BY MOUTH TWICE A DAY ORALLY ACTIVE Jey HANSON 2021 [facility] SANTYL (collagenas e Clostridium histolyticu m), 250 UNIT/G, OINT. (G), TOPICAL, WHITLOCK&N/UNI LUIS, 30 g TUBE Cancele d [id number] : 2023 Pharmac y Data Transac tion Service Facilit y WARFARIN SODIUM (warfarin sodium), 5 MG, TABLET, ORAL, [employer] 1000 ea. BOTTLE Cancele d [id number] : 2022 Pharmac y Data Transac tion Service Facilit y WARFARIN SODIUM (WARFARIN SODIUM), 5 MG, TABLET, ORAL, [employer], 1000 ea. BOTTLE Active [id number] 2023 Pharmac y Data Transac tion Service Facilit y WARFARIN SODIUM (WARFARIN SODIUM), 5 MG, TABLET, ORAL, [employer], 1000 ea. BOTTLE Cancele d [id number] : 2022 Pharmac y Data Transac tion Service Facilit y WARFARIN SODIUM (warfarin sodium), 7.5 MG, TABLET, ORAL, [employer], 100 ea. BOTTLE Active [id number] 4 2023 Pharmac y Data Transac tion Service Facilit y WARFARIN TAB TAKE 5MG BY MOUTH SUN/THUR S AND TAKE 7.5MG BY MOUTH ALL OTHER DAYS ORALLY ACTIVE Jagdish BARRETT 2022 [facility] Allergies, Adverse Reactions, Alerts Combined list of allergies from Department [facility] and 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 It does not include entries that were removed or entered in error. Substance Category Reaction Severity Reaction type Status Date Reported Comments Source AMOXICILLIN Propensity to adverse reactions to drug (finding) Eruption active [address] [facility] [address] [facility] METOLAZONE Propensity to adverse reactions to drug (finding) Itching active [address] [facility] [address] [facility] MORPHINE Propensity to adverse reactions to drug (finding) Delirium active [address] [facility] [address] [facility] PIPERACILLIN Propensity to adverse reactions to drug (finding) Eruption active [address] [facility] [address] [facility] SULFA DRUGS Propensity to adverse reactions to drug (finding) Eruption active [address] [facility] [address] [facility] TAZOBACTAM SODIUM Propensity to adverse reactions to drug (finding) Eruption active [address] [facility] [address] [facility] Immunizations Combined list of available immunizations from the Department of [facility] and [facility] facilities. Immunization Series Date Given Administered By Site Reaction Lot Number CVX Code Drug Assembler Knife Status Comments Source INFLUENZA, UNSPECIFIED FORMULATION 2021 88 complet ed [employer] recall [facility] TD (ADULT), 5 LF TETANUS TOXOID, PRESERVATIVE FREE, ADSORBED 2021 113 complet ed [facility] INFLUENZA, UNSPECIFIED FORMULATION 2020 88 complet ed [facility] COVID-19 (PFIZER), MRNA, LNP-S, PF, 30 MCG/0.3 ML DOSE 3 2020 208 complet ed [facility] COVID-19 (PFIZER), MRNA, LNP-S, PF, 30 MCG/0.3 ML DOSE 2 2020 208 complet ed [facility] COVID-19 (PFIZER), MRNA, LNP-S, PF, 30 MCG/0.3 ML DOSE 1 2020 208 complet ed [facility] PNEUMOCOCCAL CONJUGATE PCV 13 2014 133 complet ed MIIC [facility] ZOSTER LIVE 2012 121 complet ed [facility] PNEUMOCOCCAL POLYSACCHARID E PPV23 2010 33 complet ed [facility] TDAP 2010 115 complet ed [facility] Results Combined list of recent chemistry, [...] Feb 05, 2023 03:10 PM Reporting Lab: [facility] [address] Performing Lab: [facility] [address] [place] [facility] CYSTATIN C WITH EGFR CYSTATIN C AND GLOMERULAR FILTRATION RATE BY CYSTATIN C-BASED FORMULA PANEL - SERUM OR PLASMA 53 60 02/13 L Specimen Type: PLASMA No comment entered. Ordering Provider: ANKUSH BOWMAN Report Released Date/Time: Feb 05, 2023 03:10 PM Reporting Lab: [facility] [phone] Performing Lab: [facility] [address] [place] [facility] BASIC METABOLI C PANEL+MG CREATININE [MASS/VOLU ME] IN SERUM OR PLASMA 0.7 0.7 - 1.2 02/13 Specimen Type: PLASMA No comment entered. Ordering Provider: ANKUSH BOWMAN Report Released Date/Time: Feb 05, 2023 03:10 PM Reporting Lab: [facility] [phone] Performing Lab: [facility] [phone] [place] [address] [facility] BASIC METABOLI C PANEL+MG UREA NITROGEN [MASS/VOLU ME] IN SERUM OR PLASMA 15 8 - 26 02/13 Specimen Type: PLASMA No comment entered. Ordering Provider: ANKUSH BOWMAN Report Released Date/Time: Feb 05, 2023 03:10 PM Reporting Lab: [facility] [phone] Performing Lab: [facility] [address] [place] [facility] BASIC METABOLI C PANEL+MG GLUCOSE [MASS/VOLU ME] IN SERUM OR PLASMA 140 70 - 100 02/13 H Specimen Type: PLASMA No comment entered. Ordering Provider: ANKUSH BOWMAN Report Released Date/Time: Feb 05, 2023 03:10 PM Reporting Lab: [facility] [phone] Performing Lab: [facility] [address] [place] [facility] BASIC METABOLI C PANEL+MG SODIUM [MOLES/VOL UME] IN SERUM OR PLASMA 135 136 - 145 02/13 L Specimen Type: PLASMA No comment entered. Ordering Provider: ANKUSH BOWMAN Report Released Date/Time: Feb 05, 2023 03:10 PM Reporting Lab: [facility] [address] Performing Lab: [facility] [address] [place] [address] [facility] BASIC METABOLI C PANEL+MG POTASSIUM [MOLES/VOL UME] IN SERUM OR PLASMA 4.0 3.5 - 5.1 02/13 Specimen Type: PLASMA No comment entered. Ordering Provider: ANKUSH BOWMAN Report Released Date/Time: Feb 05, 2023 03:10 PM Reporting Lab: [facility] [phone] Performing Lab: [facility] [address] [place] [facility] BASIC METABOLI C PANEL+MG CHLORIDE [MOLES/VOL UME] IN SERUM OR PLASMA 99 98 - 107 02/13 Specimen Type: PLASMA No comment entered. Ordering Provider: ANKUSH BOWMAN Report Released Date/Time: Feb 05, 2023 03:10 PM Reporting Lab: [facility] [phone] Performing Lab: [facility] [address] [place] [facility] BASIC METABOLI C PANEL+MG CARBON DIOXIDE, TOTAL [MOLES/VOL UME] IN SERUM OR PLASMA 29 22 - 29 02/13 Specimen Type: PLASMA No comment entered. Ordering Provider: ANKUSH BOWMAN Report Released Date/Time: Feb 05, 2023 03:10 PM Reporting Lab: [facility] [address] Performing Lab: [facility] [address] [place] [facility] BASIC METABOLI C PANEL+MG CALCIUM [MASS/VOLU ME] IN SERUM OR PLASMA 9.2 8.4 - 10.2 02/13 Specimen Type: PLASMA No comment entered. Ordering Provider: ANKUSH BOWMAN Report Released Date/Time: Feb 05, 2023 03:10 PM Reporting Lab: [facility] [address] Performing Lab: [facility] [phone] [place] [facility] BASIC METABOLI C PANEL+MG MAGNESIUM [MASS/VOLU ME] IN SERUM OR PLASMA 2.0 1.6 - 2.6 02/13 Specimen Type: PLASMA No comment entered. Ordering Provider: ANKUSH BOWMAN Report Released Date/Time: Feb 05, 2023 03:10 PM Reporting Lab: [facility] [address] Performing Lab: [facility] [address] [place] [address] [facility] BASIC METABOLI C PANEL+MG ANION GAP IN SERUM OR PLASMA 7 5 - 15 02/13 Specimen Type: PLASMA No comment entered. Ordering Provider: ANKUSH BOWMAN Report Released Date/Time: Feb 05, 2023 03:10 PM Reporting Lab: [facility] [address] Performing Lab: [facility] [address] [place] [address] [facility] BASIC METABOLI C PANEL+MG GLOMERULAR FILTRATION RATE/1.73 SQ M.PREDICTE D [VOLUME RATE/AREA] IN SERUM, PLASMA OR BLOOD BY CREATININE -BASED FORMULA (CKD-EPI) >90 60 02/13 Specimen Type: PLASMA No comment entered. Ordering Provider: ANKUSH BOWMAN Report Released Date/Time: Feb 05, 2023 03:10 PM Reporting Lab: [facility] [address] Performing Lab: [facility] [address] [place] [facility] URINALYS IS COLOR OF URINE YELLOW 10/08 Specimen Type: URINE No comment entered. Ordering Provider: ANKUSH BOWMAN Report Released Date/Time: Sep 24, 2022 01:55 PM Reporting Lab: [facility] [address] Performing Lab: [facility] [phone] [place] [facility] URINALYS IS SPECIFIC GRAVITY OF URINE 1.023 1.003 - 1.035 10/08 Specimen Type: URINE No comment entered. Ordering Provider: ANKUSH BOWMAN Report Released Date/Time: Sep 24, 2022 01:55 PM Reporting Lab: [facility] [phone] Performing Lab: [facility] [phone] [place] [facility] URINALYS IS BILIRUBIN. TOTAL [PRESENCE] IN URINE BY TEST STRIP NEGATIVE 10/08 Specimen Type: URINE No comment entered. Ordering Provider: ANKUSH BOWMAN Report Released Date/Time: Sep 24, 2022 01:55 PM Reporting Lab: [facility] [phone] Performing Lab: [facility] [phone] [place] [facility] URINALYS IS KETONES [MASS/VOLU ME] IN URINE BY TEST STRIP NEGATIVE 10/08 Specimen Type: URINE No comment entered. Ordering Provider: ANKUSH BOWMAN Report Released Date/Time: Sep 24, 2022 01:55 PM Reporting Lab: [facility] [address] Performing Lab: [facility] [phone] [place] [facility] URINALYS IS GLUCOSE [MASS/VOLU ME] IN URINE BY TEST STRIP NEGATIVE 10/08 Specimen Type: URINE No comment entered. Ordering Provider: ANKUSH BOWMAN Report Released Date/Time: Sep 24, 2022 01:55 PM Reporting Lab: [facility] [phone] Performing Lab: [facility] [phone] [place] [facility] URINALYS IS PROTEIN [MASS/VOLU ME] IN URINE BY TEST STRIP 30 10/08 Specimen Type: URINE No comment entered. Ordering Provider: ANKUSH BOWMAN Report Released Date/Time: Sep 24, 2022 01:55 PM Reporting Lab: [facility] [phone] Performing Lab: [facility] [address] [place] [facility] URINALYS IS PH OF URINE BY TEST STRIP 7.5 5.0 - 8.0 10/08 Specimen Type: URINE No comment entered. Ordering Provider: ANKUSH BOWMAN Report Released Date/Time: Sep 24, 2022 01:55 PM Reporting Lab: [facility] [phone] Performing Lab: [facility] [phone] [place] [facility] URINALYS IS LEUKOCYTES [#/AREA] IN URINE SEDIMENT BY MICROSCOPY HIGH POWER FIELD >180 0 - 7 10/08 H Specimen Type: URINE No comment entered. Ordering Provider: ANKUSH BOWMAN Report Released Date/Time: Sep 24, 2022 01:55 PM Reporting Lab: [facility] [address] Performing Lab: [facility] [address] [place] [facility] URINALYS IS BACTERIA [PRESENCE] IN URINE SEDIMENT BY LIGHT MICROSCOPY MANY 10/08 Specimen Type: URINE No comment entered. Ordering Provider: ANKUSH BOWMAN Report Released Date/Time: Sep 24, 2022 01:55 PM Reporting Lab: [facility] [phone] Performing Lab: [facility] [address] [place] [facility] URINALYS IS ERYTHROCYT ES [#/AREA] IN URINE SEDIMENT BY MICROSCOPY HIGH POWER FIELD 33 0 - 3 10/08 H Specimen Type: URINE No comment entered. Ordering Provider: ANKUSH BOWMAN Report Released Date/Time: Sep 24, 2022 01:55 PM Reporting Lab: [facility] [address] Performing Lab: [facility] [address] [place] [facility] URINALYS IS APPEARANCE OF URINE EX.TURBI D 10/08 Specimen Type: URINE No comment entered. Ordering Provider: ANKUSH BOWMAN Report Released Date/Time: Sep 24, 2022 01:55 PM Reporting Lab: [facility] [address] Performing Lab: [facility] [phone] [place] [facility] URINALYS IS EPITHELIAL CELLS.SQUA MOUS [#/AREA] IN URINE SEDIMENT BY MICROSCOPY HIGH POWER FIELD 1 10/08 Specimen Type: URINE No comment entered. Ordering Provider: ANKUSH BOWMAN Report Released Date/Time: Sep 24, 2022 01:55 PM Reporting Lab: [facility] [address] Performing Lab: [facility] [phone] [place] [facility] URINALYS IS HEMOGLOBIN [PRESENCE] IN URINE BY TEST STRIP 1+ 10/08 Specimen Type: URINE No comment entered. Ordering Provider: ANKUSH BOWMAN Report Released Date/Time: Sep 24, 2022 01:55 PM Reporting Lab: [facility] [phone] Performing Lab: [facility] [phone] [place] [facility] URINALYS IS NITRITE [PRESENCE] IN URINE BY TEST STRIP NEGATIVE 10/08 Specimen Type: URINE No comment entered. Ordering Provider: ANKUSH BOWMAN Report Released Date/Time: Sep 24, 2022 01:55 PM Reporting Lab: [facility] [phone] Performing Lab: [facility] [phone] [place] [facility] URINALYS IS LEUKOCYTE CLUMPS [#/VOLUME] IN URINE BY AUTOMATED COUNT PRESENT 10/08 Specimen Type: URINE No comment entered. Ordering Provider: ANKUSH BOWMAN Report Released Date/Time: Sep 24, 2022 01:55 PM Reporting Lab: [facility] [address] Performing Lab: [facility] [address] [place] [facility] URINALYS IS LEUKOCYTE ESTERASE [PRESENCE] IN URINE BY TEST STRIP 500 10/08 Specimen Type: URINE No comment entered. Ordering Provider: ANKUSH BOWMAN Report Released Date/Time: Sep 24, 2022 01:55 PM Reporting Lab: [facility] [address] Performing Lab: [facility] [address] [place] [facility] ALBUMIN ALBUMIN [MASS/VOLU ME] IN SERUM OR PLASMA 4.2 3.5 - 5.2 10/08 Specimen Type: PLASMA No comment entered. Ordering Provider: ANKUSH BOWMAN Report Released Date/Time: Sep 24, 2022 01:55 PM Reporting Lab: [facility] [address] Performing Lab: [facility] [phone] [place] [facility] PRE-ALBU MIN PREALBUMIN [MASS/VOLU ME] IN SERUM OR PLASMA 28.4 14.0 - 45.0 10/08 Specimen Type: SERUM No comment entered. Ordering Provider: ANKUSH BOWMAN Report Released Date/Time: Sep 24, 2022 01:55 PM Reporting Lab: [facility] [address] Performing Lab: [facility] [address] [place] [facility] COMPREHE NSIVE METABOLI C PANEL+MG CREATININE [MASS/VOLU ME] IN SERUM OR PLASMA 0.7 0.7 - 1.2 10/08 Specimen Type: PLASMA No comment entered. Ordering Provider: ANKUSH BOWMAN Report Released Date/Time: Sep 24, 2022 01:55 PM Reporting Lab: [facility] [phone] Performing Lab: [facility] [address] [place] [facility] COMPREHE NSIVE METABOLI C PANEL+MG UREA NITROGEN [MASS/VOLU ME] IN SERUM OR PLASMA 16 8 - 26 10/08 Specimen Type: PLASMA No comment entered. Ordering Provider: ANKUSH BOWMAN Report Released Date/Time: Sep 24, 2022 01:55 PM Reporting Lab: [facility] [address] Performing Lab: [facility] [address] [place] [facility] COMPREHE NSIVE METABOLI C PANEL+MG GLUCOSE [MASS/VOLU ME] IN SERUM OR PLASMA 94 70 - 100 10/08 Specimen Type: PLASMA No comment entered. Ordering Provider: ANKUSH BOWMAN Report Released Date/Time: Sep 24, 2022 01:55 PM Reporting Lab: [facility] [address] Performing Lab: [facility] [address] [place] [facility] COMPREHE NSIVE METABOLI C PANEL+MG SODIUM [MOLES/VOL UME] IN SERUM OR PLASMA 138 136 - 145 10/08 Specimen Type: PLASMA No comment entered. Ordering Provider: ANKUSH BOWMAN Report Released Date/Time: Sep 24, 2022 01:55 PM Reporting Lab: [facility] [address] Performing Lab: [facility] [address] [place] [facility] COMPREHE NSIVE METABOLI C PANEL+MG POTASSIUM [MOLES/VOL UME] IN SERUM OR PLASMA 3.9 3.5 - 5.1 10/08 Specimen Type: PLASMA No comment entered. Ordering Provider: ANKUSH BOWMAN Report Released Date/Time: Sep 24, 2022 01:55 PM Reporting Lab: [facility] [address] Performing Lab: [facility] [id number] [place] [facility] COMPREHE NSIVE METABOLI C PANEL+MG CHLORIDE [MOLES/VOL UME] IN SERUM OR PLASMA 101 98 - 107 10/08 Specimen Type: PLASMA No comment entered. Ordering Provider: ANKUSH BOWMAN Report Released Date/Time: Sep 24, 2022 01:55 PM Reporting Lab: [facility] [id number] Performing Lab: [facility] [id number] [place] [facility] HOSPITAL COMPREHE NSIVE METABOLI C PANEL+MG CARBON DIOXIDE, TOTAL [MOLES/VOL UME] IN SERUM OR PLASMA 28 22 - 29 10/08 Specimen Type: PLASMA No comment entered. Ordering Provider: ANKUSH BOWMAN Report Released Date/Time: Sep 24, 2022 01:55 PM Reporting Lab: [facility] [phone] Performing Lab: [facility] [address] [place] [address] [facility] COMPREHE NSIVE METABOLI C PANEL+MG CALCIUM [MASS/VOLU ME] IN SERUM OR PLASMA 9.7 8.4 - 10.2 10/08 Specimen Type: PLASMA No comment entered. Ordering Provider: ANKUSH BOWMAN Report Released Date/Time: Sep 24, 2022 01:55 PM Reporting Lab: [facility] [address] Performing Lab: [facility] [address] [place] [address] [facility] COMPREHE NSIVE METABOLI C PANEL+MG PROTEIN [MASS/VOLU ME] IN SERUM OR PLASMA 7.6 6.0 - 8.3 10/08 Specimen Type: PLASMA No comment entered. Ordering Provider: ANKUSH BOWMAN Report Released Date/Time: Sep 24, 2022 01:55 PM Reporting Lab: [facility] [address] Performing Lab: [facility] [address] [place] [facility] COMPREHE NSIVE METABOLI C PANEL+MG ALBUMIN [MASS/VOLU ME] IN SERUM OR PLASMA 4.2 3.5 - 5.2 10/08 Specimen Type: PLASMA No comment entered. Ordering Provider: ANKUSH BOWMAN Report Released Date/Time: Sep 24, 2022 01:55 PM Reporting Lab: [facility] [address] Performing Lab: [facility] [address] [place] [address] [facility] COMPREHE NSIVE METABOLI C PANEL+MG BILIRUBIN. TOTAL [MASS/VOLU ME] IN SERUM OR PLASMA 0.6 0.2 - 1.2 10/08 Specimen Type: PLASMA No comment entered. Ordering Provider: ANKUSH BOWMAN Report Released Date/Time: Sep 24, 2022 01:55 PM Reporting Lab: [facility] [address] Performing Lab: [facility] [address] [place] [facility] COMPREHE NSIVE METABOLI C PANEL+MG MAGNESIUM [MASS/VOLU ME] IN SERUM OR PLASMA 2.1 1.6 - 2.6 10/08 Specimen Type: PLASMA No comment entered. Ordering Provider: ANKUSH BOWMAN Report Released Date/Time: Sep 24, 2022 01:55 PM Reporting Lab: [facility] [address] Performing Lab: [facility] [phone] [place] [facility] COMPREHE NSIVE METABOLI C PANEL+MG ANION GAP IN SERUM OR PLASMA 9 5 - 15 10/08 Specimen Type: PLASMA No comment entered. Ordering Provider: ANKUSH BOWMAN Report Released Date/Time: Sep 24, 2022 01:55 PM Reporting Lab: [facility] [address] Performing Lab: [facility] [address] [place] [facility] COMPREHE NSIVE METABOLI C PANEL+MG ALKALINE PHOSPHATAS E [ENZYMATIC ACTIVITY/V OLUME] IN SERUM OR PLASMA 96 40 - 150 10/08 Specimen Type: PLASMA No comment entered. Ordering Provider: ANKUSH BOWMAN Report Released Date/Time: Sep 24, 2022 01:55 PM Reporting Lab: [facility] [address] Performing Lab: [facility] [address] [place] [address] [facility] COMPREHE NSIVE METABOLI C PANEL+MG ALANINE AMINOTRANS FERASE [ENZYMATIC ACTIVITY/V OLUME] IN SERUM OR PLASMA 29 <55 - 55 10/08 Specimen Type: PLASMA No comment entered. Ordering Provider: ANKUSH BOWMAN Report Released Date/Time: Sep 24, 2022 01:55 PM Reporting Lab: [facility] [address] Performing Lab: [facility] [address] [place] [facility] COMPREHE NSIVE METABOLI C PANEL+MG ASPARTATE AMINOTRANS FERASE [ENZYMATIC ACTIVITY/V OLUME] IN SERUM OR PLASMA 22 <34 - 34 10/08 Specimen Type: PLASMA No comment entered. Ordering Provider: ANKUSH BOWMAN Report Released Date/Time: Sep 24, 2022 01:55 PM Reporting Lab: [facility] [address] Performing Lab: [facility] [address] [place] [facility] COMPREHE NSIVE METABOLI C PANEL+MG GLOMERULAR FILTRATION RATE/1.73 SQ M.PREDICTE D [VOLUME RATE/AREA] IN SERUM, PLASMA OR BLOOD BY CREATININE -BASED FORMULA (CKD-EPI) >90 60 10/08 Specimen Type: PLASMA No comment entered. Ordering Provider: ANKUSH BOWMAN Report Released Date/Time: Sep 24, 2022 01:55 PM Reporting Lab: [facility] [address] Performing Lab: [facility] [address] [place] [facility] CBC & DIFF LEUKOCYTES [#/VOLUME] IN BLOOD BY AUTOMATED COUNT 7.32 4.0 - 11.0 10/08 Specimen Type: BLOOD Comment: Automated Differentia l Performed Ordering Provider: ANKUSH BOMWAN Report Released Date/Time: Sep 24, 2022 01:55 PM Reporting Lab: [facility] [address] Performing Lab: [facility] [address] [place] [facility] CBC & DIFF ERYTHROCYT ES [#/VOLUME] IN BLOOD BY AUTOMATED COUNT 4.80 4.6 - 6.2 10/08 Specimen Type: BLOOD Comment: Automated Differentia l Performed Ordering Provider: ANKUSH BOWMAN Report Released Date/Time: Sep 24, 2022 01:55 PM Reporting Lab: [facility] [address] Performing Lab: [facility] [address] [place] [address] [facility] CBC & DIFF HEMOGLOBIN [MASS/VOLU ME] IN BLOOD 14.7 13.5 - 17.9 10/08 Specimen Type: BLOOD Comment: Automated Differentia l Performed Ordering Provider: ANKUSH BOWMAN Report Released Date/Time: Sep 24, 2022 01:55 PM Reporting Lab: [facility] [address] Performing Lab: [facility] [address] [place] [address] [facility] CBC & DIFF HEMATOCRIT [VOLUME FRACTION] OF BLOOD BY AUTOMATED COUNT 44.2 41 - 54 10/08 Specimen Type: BLOOD Comment: Automated Differentia l Performed Ordering Provider: ANKUSH BOWMAN Report Released Date/Time: Sep 24, 2022 01:55 PM Reporting Lab: [facility] [address] Performing Lab: [facility] [address] [place] [address] [facility] CBC & DIFF MCV [ENTITIC VOLUME] BY AUTOMATED COUNT 92.1 80 - 100 10/08 Specimen Type: BLOOD Comment: Automated Differentia l Performed Ordering Provider: ANKUSH BOWMAN Report Released Date/Time: Sep 24, 2022 01:55 PM Reporting Lab: [facility] [address] Performing Lab: [facility] [address] [place] [facility] CBC & DIFF MCH [ENTITIC MASS] BY AUTOMATED COUNT 30.6 27 - 33 10/08 Specimen Type: BLOOD Comment: Automated Differentia l Performed Ordering Provider: ANKUSH BOWMAN Report Released Date/Time: Sep 24, 2022 01:55 PM Reporting Lab: [facility] [address] Performing Lab: [facility] [address] [place] [facility] CBC & DIFF MCHC [MASS/VOLU ME] BY AUTOMATED COUNT 33.3 32.0 - 37.5 10/08 Specimen Type: BLOOD Comment: Automated Differentia l Performed Ordering Provider: ANKUSH BOWMAN Report Released Date/Time: Sep 24, 2022 01:55 PM Reporting Lab: [facility] [address] Performing Lab: [facility] [address] [place] [facility] CBC & DIFF PLATELETS [#/VOLUME] IN BLOOD BY AUTOMATED COUNT 144 150 - 400 10/08 L Specimen Type: BLOOD Comment: Automated Differentia l Performed Ordering Provider: ANKUSH BOWMAN Report Released Date/Time: Sep 24, 2022 01:55 PM Reporting Lab: [facility] [address] Performing Lab: [facility] [address] [place] [facility] CBC & DIFF PLATELET MEAN VOLUME [ENTITIC VOLUME] IN BLOOD BY AUTOMATED COUNT 10.8 7.4 - 10.4 10/08 H Specimen Type: BLOOD Comment: Automated Differentia l Performed Ordering Provider: ANKUSH BOWMAN Report Released Date/Time: Sep 24, 2022 01:55 PM Reporting Lab: [facility] [address] Performing Lab: [facility] [address] [place] [facility] CBC & DIFF NEUTROPHIL S/100 LEUKOCYTES IN BLOOD BY MANUAL COUNT 55.5 10/08 Specimen Type: BLOOD Comment: Automated Differentia l Performed Ordering Provider: ANKUSH BOWMAN Report Released Date/Time: Sep 24, 2022 01:55 PM Reporting Lab: [facility] [address] Performing Lab: [facility] [address] [place] [facility] CBC & DIFF LYMPHOCYTE S/100 LEUKOCYTES IN BLOOD BY MANUAL COUNT 31.4 10/08 Specimen Type: BLOOD Comment: Automated Differentia l Performed Ordering Provider: ANKUSH BOWMAN Report Released Date/Time: Sep 24, 2022 01:55 PM Reporting Lab: [facility] [address] Performing Lab: [facility] [address] [place] [facility] CBC & DIFF MONOCYTES/ 100 LEUKOCYTES IN BLOOD BY AUTOMATED COUNT 10.2 10/08 Specimen Type: BLOOD Comment: Automated Differentia l Performed Ordering Provider: ANKUSH BOWMAN Report Released Date/Time: Sep 24, 2022 01:55 PM Reporting Lab: [facility] [address] Performing Lab: [facility] [address] [place] [facility] CBC & DIFF EOSINOPHIL S/100 LEUKOCYTES IN BLOOD BY AUTOMATED COUNT 2.2 10/08 Specimen Type: BLOOD Comment: Automated Differentia l Performed Ordering Provider: ANKUSH BOWMAN Report Released Date/Time: Sep 24, 2022 01:55 PM Reporting Lab: [facility] [address] Performing Lab: [facility] [address] [place] [facility] CBC & DIFF BASOPHILS/ 100 LEUKOCYTES IN BLOOD BY MANUAL COUNT 0.4 10/08 Specimen Type: BLOOD Comment: Automated Differentia l Performed Ordering Provider: ANKUSH BOWMAN Report Released Date/Time: Sep 24, 2022 01:55 PM Reporting Lab: [facility] [address] Performing Lab: [facility] [address] [place] [facility] CBC & DIFF ERYTHROCYT E DISTRIBUTI ON WIDTH [RATIO] BY AUTOMATED COUNT 15.9 11.5 - 14.5 10/08 H Specimen Type: BLOOD Comment: Automated Differentia l Performed Ordering Provider: ANKUSH BOWMAN Report Released Date/Time: Sep 24, 2022 01:55 PM Reporting Lab: [facility] [address] Performing Lab: [facility] [address] [place] [facility] CBC & DIFF LYMPHOCYTE S [#/VOLUME] IN BLOOD BY AUTOMATED COUNT 2.30 1.0 - 4.0 10/08 Specimen Type: BLOOD Comment: Automated Differentia l Performed Ordering Provider: ANKUSH BOWMAN Report Released Date/Time: Sep 24, 2022 01:55 PM Reporting Lab: [facility] [address] Performing Lab: [facility] [address] [place] [facility] CBC & DIFF MONOCYTES [#/VOLUME] IN BLOOD BY AUTOMATED COUNT 0.75 0.1 - 1.0 10/08 Specimen Type: BLOOD Comment: Automated Differentia l Performed Ordering Provider: ANKUSH BOWMAN Report Released Date/Time: Sep 24, 2022 01:55 PM Reporting Lab: [facility] [address] Performing Lab: [facility] [address] [place] [facility] CBC & DIFF NEUTROPHIL S [#/VOLUME] IN BLOOD BY AUTOMATED COUNT 4.06 2.0 - 7.7 10/08 Specimen Type: BLOOD Comment: Automated Differentia l Performed Ordering Provider: ANKUSH BOWMAN Report Released Date/Time: Sep 24, 2022 01:55 PM Reporting Lab: [facility] [address] Performing Lab: [facility] [address] [place] [facility] CBC & DIFF EOSINOPHIL S [#/VOLUME] IN BLOOD BY AUTOMATED COUNT 0.16 0 - 0.5 10/08 Specimen Type: BLOOD Comment: Automated Differentia l Performed Ordering Provider: ANKUSH BOWMAN Report Released Date/Time: Sep 24, 2022 01:55 PM Reporting Lab: [facility] [phone] Performing Lab: [facility] [address] [place] [facility] CBC & DIFF BASOPHILS [#/VOLUME] IN BLOOD BY AUTOMATED COUNT 0.03 0 - 0.2 10/08 Specimen Type: BLOOD Comment: Automated Differentia l Performed Ordering Provider: ANKUSH BOWMAN Report Released Date/Time: Sep 24, 2022 01:55 PM Reporting Lab: [facility] [address] Performing Lab: [facility] [address] [place] [address] [facility] CBC & DIFF IG(META,MY MALACHI,PRO) 0.3 10/08 Specimen Type: BLOOD Comment: Automated Differentia l Performed Ordering Provider: ANKUSH BOWMAN Report Released Date/Time: Sep 24, 2022 01:55 PM Reporting Lab: [facility] [phone] Performing Lab: [facility] [address] [place] [address] [facility] CBC & DIFF IMMATURE GRANULOCYT ES [PRESENCE] IN BLOOD BY AUTOMATED COUNT 0.02 0 - 0.1 10/08 Specimen Type: BLOOD Comment: Automated Differentia l Performed Ordering Provider: ANKUSH BOWMAN Report Released Date/Time: Sep 24, 2022 01:55 PM Reporting Lab: [facility] [address] Performing Lab: [facility] [address] [place] [address] [facility] CYSTATIN C WITH EGFR CYSTATIN C [MASS/VOLU ME] IN SERUM OR PLASMA 1.38 0.51 - 1.05 10/08 H Specimen Type: PLASMA No comment entered. Ordering Provider: ANKUSH BOWMAN Report Released Date/Time: Sep 24, 2022 01:55 PM Reporting Lab: [facility] [address] Performing Lab: [facility] [address] [place] [address] [facility] CYSTATIN C WITH EGFR CYSTATIN C AND GLOMERULAR FILTRATION RATE BY CYSTATIN-B ASED FORMULA PANEL - SERUM OR PLASMA 48 60 10/08 L Specimen Type: PLASMA No comment entered. Ordering Provider: ANKUSH BOWMAN Report Released Date/Time: Sep 24, 2022 01:55 PM Reporting Lab: [facility] [address] Performing Lab: [facility] [address] [place] [address] [facility] VIT D 25-OH,TO ZAMZAM 25-HYDROXY VITAMIN D3 [MASS/VOLU ME] IN SERUM OR PLASMA 54 12 - 50 10/08 H Specimen Type: SERUM No comment entered. Ordering Provider: ANKUSH BOWMAN Report Released Date/Time: Sep 24, 2022 01:55 PM Reporting Lab: [facility] [phone] Performing Lab: [facility] [address] [place] [address] [facility] COMPREHE NSIVE METABOLI C PANEL+MG CREATININE [MASS/VOLU ME] IN SERUM OR PLASMA 0.7 0.7 - 1.2 05/28 Specimen Type: PLASMA No comment entered. Ordering Provider: GERMANIA HANSON Report Released Date/Time: May 28, 2022 03:06 PM Reporting Lab: [facility] [address] Performing Lab: [facility] [address] [facility] COMPREHE NSIVE METABOLI C PANEL+MG UREA NITROGEN [MASS/VOLU ME] IN SERUM OR PLASMA 13 8 - 26 05/28 Specimen Type: PLASMA No comment entered. Ordering Provider: GERMANIA HANSON Report Released Date/Time: May 28, 2022 03:06 PM Reporting Lab: [facility] [address] Performing Lab: [facility] [address] [facility] COMPREHE NSIVE METABOLI C PANEL+MG GLUCOSE [MASS/VOLU ME] IN SERUM OR PLASMA 98 74 - 100 05/28 Specimen Type: PLASMA No comment entered. Ordering Provider: GERMANIA HANSON Report Released Date/Time: May 28, 2022 03:06 PM Reporting Lab: [facility] [address] Performing Lab: [facility] [address] [facility] COMPREHE NSIVE METABOLI C PANEL+MG SODIUM [MOLES/VOL UME] IN SERUM OR PLASMA 138 136 - 145 05/28 Specimen Type: PLASMA No comment entered. Ordering Provider: GERMANIA HANSON Report Released Date/Time: May 28, 2022 03:06 PM Reporting Lab: [facility] [address] Performing Lab: [facility] [address] [facility] COMPREHE NSIVE METABOLI C PANEL+MG POTASSIUM [MOLES/VOL UME] IN SERUM OR PLASMA 4.4 3.5 - 5.1 07/18 /2022 Specimen Type: PLASMA No comment entered. Ordering Provider: GERMANIA HANSON Report Released Date/Time: May 28, 2022 03:06 PM Reporting Lab: [facility] [address] Performing Lab: [facility] [address] [facility] COMPREHE NSIVE METABOLI C PANEL+MG CHLORIDE [MOLES/VOL UME] IN SERUM OR PLASMA 102 98 - 107 05/28 Specimen Type: PLASMA No comment entered. Ordering Provider: GERMANIA HANSON Report Released Date/Time: May 28, 2022 03:06 PM Reporting Lab: [facility] [address] Performing Lab: [facility] [address] [facility] COMPREHE NSIVE METABOLI C PANEL+MG CARBON DIOXIDE, TOTAL [MOLES/VOL UME] IN SERUM OR PLASMA 28 22 - 29 05/28 Specimen Type: PLASMA No comment entered. Ordering Provider: GERMANIA HANSON Report Released Date/Time: May 28, 2022 03:06 PM Reporting Lab: [facility] [address] Performing Lab: [facility] [address] [facility] COMPREHE NSIVE METABOLI C PANEL+MG CALCIUM [MASS/VOLU ME] IN SERUM OR PLASMA 9.4 8.4 - 10.2 05/28 Specimen Type: PLASMA No comment entered. Ordering Provider: GERMANIA HANSON Report Released Date/Time: May 28, 2022 03:06 PM Reporting Lab: [facility] [address] Performing Lab: [facility] [address] [facility] COMPREHE NSIVE METABOLI C PANEL+MG PROTEIN [MASS/VOLU ME] IN SERUM OR PLASMA 7.6 6.0 - 8.3 05/28 Specimen Type: PLASMA No comment entered. Ordering Provider: GERMANIA HANSON Report Released Date/Time: May 28, 2022 03:06 PM Reporting Lab: [facility] [address] Performing Lab: [facility] [address] [facility] COMPREHE NSIVE METABOLI C PANEL+MG ALBUMIN [MASS/VOLU ME] IN SERUM OR PLASMA 4.0 3.5 - 5.2 05/28 Specimen Type: PLASMA No comment entered. Ordering Provider: GERMANIA HANSON Report Released Date/Time: May 28, 2022 03:06 PM Reporting Lab: [facility] [phone] Performing Lab: [facility] [address] [facility] COMPREHE NSIVE METABOLI C PANEL+MG BILIRUBIN. TOTAL [MASS/VOLU ME] IN SERUM OR PLASMA 0.5 0.2 - 1.2 05/28 Specimen Type: PLASMA No comment entered. Ordering Provider: GERMANIA HANSON Report Released Date/Time: May 28, 2022 03:06 PM Reporting Lab: [facility] [phone] Performing Lab: [facility] [address] [facility] COMPREHE NSIVE METABOLI C PANEL+MG MAGNESIUM [MASS/VOLU ME] IN SERUM OR PLASMA 2.1 1.6 - 2.6 05/28 Specimen Type: PLASMA No comment entered. Ordering Provider: GERMANIA HANSON Report Released Date/Time: May 28, 2022 03:06 PM Reporting Lab: [facility] [address] Performing Lab: [facility] [address] [facility] COMPREHE NSIVE METABOLI C PANEL+MG ANION GAP IN SERUM OR PLASMA 8 5 - 15 05/28 Specimen Type: PLASMA No comment entered. Ordering Provider: GERMANIA HANSON Report Released Date/Time: May 28, 2022 03:06 PM Reporting Lab: [facility] [address] Performing Lab: [facility] [address] [facility] COMPREHE NSIVE METABOLI C PANEL+MG ALKALINE PHOSPHATAS E [ENZYMATIC ACTIVITY/V OLUME] IN SERUM OR PLASMA 108 40 - 150 05/28 Specimen Type: PLASMA No comment entered. Ordering Provider: GERMANIA HANSON Report Released Date/Time: May 28, 2022 03:06 PM Reporting Lab: [facility] [address] Performing Lab: [facility] [address] [facility] COMPREHE NSIVE METABOLI C PANEL+MG ALANINE AMINOTRANS FERASE [ENZYMATIC ACTIVITY/V OLUME] IN SERUM OR PLASMA 27 <55 - 55 05/28 Specimen Type: PLASMA No comment entered. Ordering Provider: GERMANIA HANSON Report Released Date/Time: May 28, 2022 03:06 PM Reporting Lab: [facility] [address] Performing Lab: [facility] [address] [facility] COMPREHE NSIVE METABOLI C PANEL+MG ASPARTATE AMINOTRANS FERASE [ENZYMATIC ACTIVITY/V OLUME] IN SERUM OR PLASMA 21 <34 - 34 05/28 Specimen Type: PLASMA No comment entered. Ordering Provider: GERMANIA HANSON Report Released Date/Time: May 28, 2022 03:06 PM Reporting Lab: [facility] [address] Performing Lab: [facility] [address] SADAF NORMAN COMPREHE NSIVE METABOLI C PANEL+MG GLOMERULAR FILTRATION RATE/1.73 SQ M.PREDICTE D [VOLUME RATE/AREA] IN SERUM, PLASMA OR BLOOD BY CREATININE -BASED FORMULA (CKD-EPI) >90 60 05/28 Specimen Type: PLASMA No comment entered. Ordering Provider: GERMANIA HANSON Report Released Date/Time: May 28, 2022 03:06 PM Reporting Lab: [facility] [address] Performing Lab: [facility] [address] SADAF NORMAN Vital Signs Combined list of inpatient and outpatient Vital Signs from Department of Defense and Veterans Affairs, ranging from 12 months to all on record, depending upon the facility. Vital Sign Value Date Comments Source SYSTOLIC BLOOD PRESSURE 103 02/13/2023 10:58:23 [facility] DIASTOLIC BLOOD PRESSURE 66 02/13/2023 10:58:23 [facility] PULSE OXIMETRY 98% 02/13/2023 10:58:[address] [place] [facility] PAIN 4 02/13/2023 10:58:23 [facility] 96.2 02/13/2023 10:58:23 [facility] 86 02/13/2023 10:58:[address] [facility] RESPIRATION 16 02/13/2023 10:58:23 [facility] WEIGHT 225 02/05/2023 15:39:35 [facility] BMI 33kg/m2 02/05/2023 15:39:35 [facility] Encounters Combined list of: 1) Encounters from Department of [facility] Affairs facilities going back up to thelast 18 months. 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 Location Location Details Encounter Type Encounter Number Reason For Visit Attending Provider ADM Date DC Date Status Disposition Source [facility] SELF CARE MNGMENT TRAINING [id number] Diagnos is: ICD-10- CM Z73.6 Limitat ion of activit ies due to disabil ity<br/ > AVE HALEY 07/11 [facility] Outpatient Encounter [id number] 07/18 [facility] SELF CARE MNGMENT TRAINING [id number] Diagnos is: ICD-10- CM Z73.6 Limitat ion of activit ies due to disabil ity<br/ > RACIEL CHOWDHURY T 07/23 [facility] SELF CARE MNGMENT TRAINING [id number] Diagnos is: ICD-10- CM Z73.6 Limitat ion of activit ies due to disabil ity<br/ > AVE HALEY 07/25 [facility] OT EVAL MOD COMPLEX 45 MIN [id number] Diagnos is: ICD-10- CM Z73.6 Limitat ion of activit ies due to disabil ity<br/ > AVE HALEY 07/25 [facility] Outpatient Encounter [phone] Diagnos is: ICD-10- CM R26.9 Unspeci fied abnorma lities of gait and mobilit y
JULIANKARIPool SPAULDING M 07/31 [facility] OFFICE O/P EST MOD 30-39 MIN [id number] Diagnos is: ICD-10- CM G82.20 Paraple mary kay, unspeci fied
GRACIE LOGAN K 08/01 [facility] Outpatient Encounter [id number] 08/17 [facility] Outpatient Encounter [id number] 09/20 [facility] OFFICE O/P EST MINIMAL PROB [id number] Diagnos is: ICD-10- CM G82.20 Paraple mary kay, unspeci fied
Jey PATTON V 10/08 [facility] ASSISTIVE TECHNOLOGY ASSESS [id number] Diagnos is: ICD-10- CM Z73.6 Limitat ion of activit ies due to disabil ity<br/ > BOUSLOG,RY AN P 10/08 [facility] Outpatient Encounter [id number] 10/09 [facility] [facility] Outpatient Encounter [id number] 10/11 [facility] HC PRO PHONE CALL 5-10 MIN [id number] Diagnos is: ICD-10- CM Z73.6 Limitat ion of activit ies due to disabil ity<br/ > AVE HALEY M 12/13 [facility] Outpatient Encounter [id number] 01/08 [facility] PRO PHONE CALL 21-30 MIN [id number] [phone] Diagnos is: ICD-10- CM G82.20 Paraple mary kay, unspeci fied
Hever CASTRO 01/08 [facility] Outpatient Encounter [phone] 01/09 [facility] DIABETIC MANAGEMENT PROGRAM, [id number] Diagnos is: ICD-10- CM G82.20 Paraple mary kay, unspeci fied
TIGIST BASSETT 01/30 [facility] Outpatient Encounter [phone] 02/05 [facility] MTMS BY PHARM ADDL 15 MIN [phone] Diagnos is: ICD-10- CM G82.20 Paraple mary kay, unspeci fied
MANPREET BARRETT 02/05 [facility] OT EVAL LOW COMPLEX 30 MIN [id number] [phone] Diagnos is: ICD-10- CM Z73.6 Limitat ion of activit ies due to disabil ity<br/ > Bryn PARDO 02/05 [facility] OFF/OP EST MAY X REQ PHY/QHP [id number] [phone] Diagnos is: ICD-10- CM G82.20 Paraple mary kay, unspeci fied
JOSUÉ ZAMORA 02/05 [facility] PSYCH DIAGNOSTIC EVALUATION [id number] [phone] Diagnos is: ICD-10- CM F32.A Depress ion, unspeci fied
BINU GAMEZ 02/05 [facility] OFFICE O/P EST MOD 30-39 MIN [id number] [phone] Diagnos is: ICD-10- CM G82.20 Paraple mary kay, unspeci fied
GRACIE,ME LOGAN Kathleen 02/05 [facility] PSYCH DIAGNOSTIC EVALUATION [phone] Diagnos is: ICD-10- CM G82.20 Paraple mary kay, unspeci fied
CHIRCOP,AN DESIRE J 02/05 [facility] MEDICAL NUTRITION INDIV IN [phone] Diagnos is: ICD-10- CM Z71.3 Dietary public relations counselor ing and surveil payal<b r/> Katia ARCHER 02/05 [facility] ENTEROSTOM AL THERAPY BY A RE [phone] Diagnos is: ICD-10- CM Z43.3 Encount er for attenti on to colosto my
VIOLA YOON NDJagdish 02/08 [facility] OFFICE O/P EST HI 40-54 MIN [phone] Diagnos is: ICD-10- CM G82.20 Paraple mary kay, unspeci fied
ME LOGAN BOWMAN 02/13 [facility] WHEELCHAIR MNGMENT TRAINING [phone] Diagnos is: ICD-10- CM Z73.6 Limitat ion of activit ies due to disabil ity<br/ > BOUSLOG,RY AN P 02/13 [facility] Outpatient Encounter [id number] 02/19 [facility] HC PRO PHONE CALL 11-20 MIN [phone] Diagnos is: ICD-10- CM Z73.6 Limitat ion of activit ies due to disabil ity<br/ > BOUSLOG,RY AN P 04/23 [facility] [place] [facility] Outpatient Encounter [id number] 04/24 [facility] [place] [facility] Outpatient Encounter [id number] 05/24 [facility] OFF/OP EST MARCH X REQ PHY/QHP [id number] [id number] Diagnos is: ICD-10- CM G82.20 Paraple mary kay, unspeci fied
VIOLA YOON NDA 05/28 [facility] WHEELCHAIR MNGMENT TRAINING [id number] Diagnos is: ICD-10- CM Z73.6 Limitat ion of activit ies due to disabil ity<br/ > BOUSLOG,RY AN P 06/10 [facility] [place] [facility] Outpatient Encounter [id number] 10/28 [facility] [place] [facility] Outpatient Encounter [id number] 11/20 [facility] Social History Combined list of available smoking, tobacco, and other social history from 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 Social History Type Response Date Comment Sour e Tobacco smoking status [facility] NEVER USED 05/28/20 22 [facility] This section is an empty social history section. DoD Advance Directives List of completed, amended, or rescinded Advance Directives on record at Department of 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 An actual copy of the Directive is not included. Date Advance Directive Provider Source 02/05/2023 ADVANCE DIRECTIVE DISCUSSION GUSTAVO ABAD [facility]
--- OUTSIDE RECORDS SUMMARY | 2023-12-30 12:45 | XMS_ITS | Encounter Summary ---
Author Name [facility] Organization [facility] Address [address] [place] [address] Support Name Relationship Address Phone WADE DEGROOT Next of Kin [address] [place] [place] [address] WADE [place]GROOT Emergency Contact [address] [place] [address] CHANTEL DEGROOT Next of Kin [place] DENNISON Emergency Contact [facility] [place] CON SENT FOR [facility] Insurance Providers: All historical and current Section [...] PART B Jul 12, 2004 PART B [id number] [phone] Kasie DEGROOT RED PATIENT MEDICARE (WNR) MEDICARE (M) PART A Oct 11, 2002 PART A [id number] [phone] Kasie DEGROOT RED PATIENT Selected Encounter This [...] this document. The data comes from all [place] facilities. Date Advance Directives Provider Source Feb 05, 2023 ADVANCE DIRECTIVE DISCUSSION GUSTAVO ABAD [facility] Encounter Notes: All associated encounter notes This section contains the clinical notes associated to the Encounter. Date/Time Encounter Note(s) Provider Source Oct 28, 2023 02:46 PM ADDENDUM: LOCAL TITLE: Addendum STANDARD TITLE: ADDENDUM DATE OF NOTE: OCT 28, 2023@14:46:05 ENTRY DATE: OCT 28, 2023@14:46:07 AUTHOR: DENNIS RETANA EXP COSIGNER: URGENCY: STATUS: COMPLETED Received this at [facility], forwarding to [facility] nurse as he sees them. Prescription scanned into this note. /el/ DENNIS RETANA LPN Co-Ramp Supervisor Signed: 10/28/2023 14:48 Receipt Acknowledged By: 12/24/2023 07:40 /el/ SP[facility] CARE AID --- Original Document --- 10/28/23 PHARMACY NON [place] CARE MEDICATIONS: [facility] Outpatient Pharmacy RECEIVED electronic prescription(s) (eRX(s)) from NON-VA Provider:SHANEKA HAHN Date eRX received: Oct not eligible to receive non-VA prescription(s) at this time. Prescription(s) REDIRECTED via FAX to: [X][facility] [ ]Other: [ ] [facility] ([facility]) [ ] [facility] [ ] [facility] [ ] [facility] eRx Reference #:[id number] eRx Prescription Information: eRx Drug: Transparent Mepitel Film eRx Qty: 20 eRx Refills: 2 eRx Days Supply: eRx Sig: As directed, following wound care orders /el/ [facility] C[facility] PHARMACIST Signed: 10/28/2023 08:38 DENNIS RETANA [facility] Oct 28, 2023 08:37 AM PHARMACY NOTE: LOCAL TITLE: PHARMACY NON [facility] CARE MEDICATIONS STANDARD TITLE: PHARMACY NOTE DATE OF NOTE: OCT 28, 2023@08:37 ENTRY DATE: OCT 28, 2023@08:37:30 AUTHOR: CASA CASH EXP COSIGNER: URGENCY: STATUS: COMPLETED PHARMACY NON [facility] CARE MEDICATIONS Has ADDENDA [facility] Outpatient Pharmacy RECEIVED electronic prescription(s) (eRX(s)) from NON-VA Provider:SHANEKA HAHN Date eRX received: Oct not eligible to receive non-VA prescription(s) at this time. Prescription(s) REDIRECTED via FAX to: [X][facility] [ ]Other: [ ] [facility] ([facility]) [ ] [facility] [ ] [facility] [ ] [facility] eRx Reference #:[id number] eRx Prescription Information: eRx Drug: Transparent Mepitel Film eRx Qty: 20 eRx Refills: 2 eRx Days Supply: eRx Sig: As directed, following wound care orders /el/ CASA CASH PHARMACIST Signed: 10/28/2023 08:38 10/28/2023 ADDENDUM STATUS: COMPLETED Received this at [facility], forwarding to [facility] nurse as he sees them. Prescription scanned into this note. /silvano RETANA LPN Co-Ramp Supervisor Signed: 10/28/2023 14:48 Receipt Acknowledged By: * AWAITING SIGNATURE * SPENSER YOON ANDREA L [facility]
--- OUTSIDE RECORDS SUMMARY | 2023-12-30 12:46 | XMS_ITS | Clinical Summary ---
Author Name Unknown Organization [facility] Address [place], [place] [address] Care Team Providers Care Director Operating Room Name Role Phone Zelalem Cohen MD Unavailable [phone] May Randle MD Unavailable [phone] Franklin Squires MD Primary Care Provider Fred Craft Unavailable [phone] Diane Charles MD Unavailable [phone] Julia Ware RN Unavailable Allergies Active Allergy Reactions Criticality Noted Date [...] bedIndications:Non-heal ing surgical wound, subsequent encounter Drive TXCOM 8 inch low loss mattress and 1/2 rails. Semi-electric bed. Length of need 6 weeks. Bed face burler:no 1 unit 0 018 Active acetaminophen (TYLENOL [...] 60mm, Cut-to-Fit 01/16 - 2 11/18. Item #[id number]. 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 270 Capsule 3 022 2023 Discontinued donepeziL (ARICEPT) 5 mg tabletIndications:Millicent curielon Take 1 Tablet (5 mg) by mouth at bedtime. 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 current use of insulin 01/06/2021 Normochromic [...] & Plan: Orthopedics: Dr. Bright PM&R: Dr. aMy Randle Pain Management: Dr. 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 02/19/2007 09/27/2008 Depressive disorder, not elsewhere classified 02/14/20 07 01/15/2018 Abnormality of gait 12/24/2006 09/27/20 08 Urinary tract infection, site not specified 12/24/2006 01/15/2018 BENIGN ESSENTIAL HYPERTENSION 12/24/2006 04/17/2016 Overview: borderline Necrotizing fasciitis 2018 Type 2 diabetes mellitus Encounters Date Type Department Care Team Description 12/29/2023 Refill [facility] [address] [facility] [place] [address] Franklin Squires MD Refill Request (Oxycodone) 12/26/2023 Telephone [facility] [address] [facility] [place] [address] Franklin Squires MD Form 12/26/[address] [place] [address] Franklin Squires MD Anticoagulation (Question/review) 12/25/2023 Anticoagulation (warfarin) [address] [place] [address] 1, [facility] Anticoagulation (Acelis) 12/19/2023 1:50 PM C 40A CREW CHIEF Office Visit [address] [place] [address] Franklin Squires MD Recheck 12/19/[address] [place] [address] Franklin Squires MD Refill Request (Dakin's Solution) 12/19/2023 Travel 12/18/2023 Anticoagulation (warfarin) [address] [place] [address] 1, [facility] Anticoagulation (Acelis) 12/16/[address] [place] [address] Franklin Squires MD Refill Request (Dakins 1/2 strength 0.25 soln) 12/13/[address] [place] [address] Franklin Squires MD Form 12/12/[address] [place] [address] Franklin Squires MD Refill Request (Gabapentin, Donepezil) 12/10/2023 Anticoagulation (warfarin) [address] [place] [address] 1, [facility] Anticoagulation (Acelis) 12/05/2023 Telephone [facility] [address] [place] [address] Franklin Squires MD Form 12/03/2023 Anticoagulation (warfarin) [address] [place] [address] 1, [facility] Anticoagulation (acelis) 11/28/2023 Refill [facility] [address] [facility] [place] [address] Franklin Squires MD Refill Request (Oxycodone) 11/28/[address] [place] [address] Franklin Squires MD Form 11/28/[address] [place] [address] Franklin Squires MD Questions (IRISH) 11/26/2023 Anticoagulation (warfarin) [address] [place] [address] 1, [facility] Anticoagulation (Acelis) 11/21/2023 2:00 PM C 40A CREW CHIEF - 11/21/2023 11:59 PM C 40A CREW CHIEF Hospital Encounter [facility] [address] [place] [address] Soft tissue infection (Primary Dx) 11/21/2023 1:00 PM C 40A CREW CHIEF Office Visit [address] [place] [address] Franklin Squires MD Diabetes 11/21/2023 Anticoagulation (warfarin) [address] [place] [address] 1, [facility] 11/20/2023 1:53 PM C 40A CREW CHIEF - 11/20/2023 11:59 PM C 40A CREW CHIEF Hospital Encounter [facility] [address] [place] [address] Pressure injury of sacral region, stage 3 (HC) (Primary Dx); Soft tissue infection 11/20/2023 Travel 11/19/2023 Orders Only [facility] [address] [place] [address] Yudith Mcgarw, METEOROLOGICAL ENGINEER 1 scan: PICC LINE, LABS AND INFUSION 11/18/2023 Orders Only [facility] Scanner 1 scan: (1-Ord) [place], MULTIPLE LAB RESULTS, 11/18/2023 11/18/2023 Anticoagulation (warfarin) [address] [place] [address] , [facility] Anticoagulation (Acelis ) 11/18/[address] [place] [address] Franklin Squires MD Form 11/15/[address] [place] [address] Franklin Squires MD Form 11/14/[address] [place] [address] Franklin Squires MD Form 11/13/2023 1:00 PM C 40A CREW CHIEF Nurse/Clinic Staff Only [address] [place] [address] Removal; Insert 11/13/[address] [place] [address] Diane Charles MD Medication Management 11/13/2023 Travel 11/12/[address] [place] [address] Franklin Squires MD Form 11/08/2023 Anticoagulation (warfarin) [address] [place] [address] 1, [facility] Anticoagulation (acelis) 11/06/2023 Orders Only [facility] Scanner 1 scan: (1-Ord) [facility], INR 10/29/23 - 11/05/26, 11/06/2023 11/06/2023 Telephone [facility] [address] [facility] [place] [address] 1, [facility] Refill Request (Warfarin 5 mg ) 11/06/2023 Anticoagulation (warfarin) [facility] [address] [place] [address] , [facility] Anticoagulation (Chart update) 10/30/2023 Orders Only [facility] Scanner 1 scan: (1-Ord) [facility], SHARP DEBRIDEMENT DOWN TO BONE, 10/30/2023 10/29/2023 10:56 AM C 40A CREW CHIEF - 10/29/2023 11:59 PM C 40A CREW CHIEF Hospital Encounter [facility] [address] [facility] [place] [address] Yudith Mcgraw NP Soft tissue infection (Primary Dx) 10/29/2023 Travel 10/29/2023 Anticoagulation (warfarin) [email or web address] [place] [address] 1, [facility] Anticoagulation (acelis) 10/28/2023 12:28 PM C 40A CREW CHIEF - 10/28/2023 11:59 PM C 40A CREW CHIEF Hospital Encounter [facility] [address] [facility] [place] [address] Yudith Mcgraw NP Soft tissue infection (Primary Dx) 10/28/2023 Orders Only [facility] [address] [facility] [place] [address] Diane Charles MD <No scans attached> 10/27/2023 12:26 PM C 40A CREW CHIEF - 10/27/2023 1:35 PM C 40A CREW CHIEF Hospital Encounter [facility] [address] [facility] [place] [address] Yudith Mcgraw, Franklin Sorensen MD Soft tissue infection (Primary Dx) Discharge Disposition: Home Self Care 10/27/2023 Travel 10/26/2023 12:41 PM C 40A CREW CHIEF - 10/26/2023 1:28 PM C 40A CREW CHIEF Hospital Encounter [facility] [address] [place] [address] Yudith Mcgraw, Franklin Sorensen MD Soft tissue infection (Primary Dx) Discharge Disposition: Home Self Care 10/26/2023 Travel 10/25/2023 3:42 PM C 40A CREW CHIEF - 10/25/2023 6:10 PM C 40A CREW CHIEF Hospital Encounter [facility] [address] [place] [address] Yudith Mcgraw NP Discharge Disposition: Home Self Care 10/25/2023 12:40 PM C 40A CREW CHIEF - 10/25/2023 1:30 PM C 40A CREW CHIEF Hospital Encounter [facility] [address] [place] [address] Yudith Mcgraw, Franklin Sorensen MD Soft tissue infection (Primary Dx) Discharge Disposition: Home Self Care 10/25/2023 Travel 10/25/2023 Anticoagulation (warfarin) [address] [address] , [facility] Anticoagulation (acelis) 10/24/2023 12:24 PM C 40A CREW CHIEF - 10/24/2023 11:59 PM C 40A CREW CHIEF Hospital Encounter [facility] [address] [place] [address] Yudith Mcgraw NP Soft tissue infection (Primary Dx) 10/24/2023 Anticoagulation (warfarin) [address] [address] , [facility] Anticoagulation (Chart update, interacting medication) 10/23/2023 1:30 PM C 40A CREW CHIEF Nurse/Clinic Staff Only [address] [phone] Removal; Insert 10/23/2023 12:22 PM C 40A CREW CHIEF - 10/23/2023 11:59 PM C 40A CREW CHIEF Hospital Encounter [facility] [address] [place] [address] Yudith Mcgraw NP Soft tissue infection (Primary Dx) 10/23/2023 Orders Only [facility] Scanner 1 scan: (1-Ord) [facility], CT PELVIS W CON , 10/23/2023 10/23/2023 Travel 10/23/2023 Telephone [facility] [address] [place] [address] Franklin Squires MD Refill Request; Medication Management (Clarification of Pot Chlor ER (Disp) Tabs) 10/22/2023 Transcribe Orders [facility] [address] [place] [address] Yudith Mcgraw NP 10/22/2023 Refill [facility] [address] [place] [address] Franklin Squires MD Refill Request (Oxycodone, Lorazepam) 10/18/2023 Anticoagulation (warfarin) [address] [address] 1, [facility] Anticoagulation (acelis) 10/16/2023 Refill [facility] [address] [place] [address] Franklin Squires MD Refill Request (Duloxetine) 10/07/2023 Refill [facility] [address] [place] [address] Franklin Squires MD Refill Request (Famotidine, Bupropion) 10/02/2023 2:00 PM C 40A CREW CHIEF Nurse/Clinic Staff Only [facility] [address] [place] [address] Removal; Insert 10/02/2023 Travel from Last 3 Months Immunizations Name Administration Dates Next Due COVID-19 vaccine ([employer] 30mcg/0.3mL) 12YO+ BIVALENT PF, MDV 10/22/2022 COVID-19 vaccine ([employer] 30mcg/0.3mL) PF, MDV 01/25/2021,01/02/2021 Influenza A [...] Comments Blood Pressure 110/62 12/19/2023 1:51 PM C 40A CREW CHIEF Pulse 84 12/19/2023 1:51 PM C 40A CREW CHIEF Temperature 36.4 ??C (97.6 ??F) 11/21/2023 2:37 PM CS T Respiratory Rate 20 12/19/2023 1:51 PM C 40A CREW CHIEF Oxygen Saturation 95% 11/21/2023 2:37 PM C 40A CREW CHIEF Inhaled Oxygen Concentration - - Weight 99.8 [...] Associated Diagnosis Comments HOME MONITOR AC Routine 12/25/2023 12:00 AM C 40A CREW CHIEF HOME MONITOR AC Routine 12/18/2023 12:00 AM C 40A CREW CHIEF HOME MONITOR AC Routine 12/10/2023 12:00 AM C 40A CREW CHIEF HOME MONITOR AC Routine 12/03/2023 12:00 AM C 40A CREW CHIEF HOME MONITOR AC Routine 11/26/2023 12:00 AM C 40A CREW CHIEF SCAN CORRESP-LABORATORY RESULTS 11/21/2023 3:07 PM C 40A CREW CHIEF HEMOGLOBIN A1C STAT 11/21/2023 1:04 PM C 40A CREW CHIEF 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) PROTIME-INR STAT 11/21/2023 1:04 PM C 40A CREW CHIEF 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) Anticoagulation monitoring, INR range 2-3 HOME MONITOR AC Routine 11/18/2023 12:00 AM C 40A CREW CHIEF HOME MONITOR AC Routine 11/08/2023 12:00 AM C 40A CREW CHIEF SCAN-LABORATORY REPORT 11/06/2023 12:00 AM C 40A CREW CHIEF INR,POCT Routine 11/05/2023 INR,POCT Routine 11/04/2023 INR,POCT Routine 11/03/2023 INR,POCT Routine 11/02/2023 INR,POCT Routine 11/01/2023 INR,POCT Routine 10/31/2023 INR,POCT Routine 10/30/2023 SCAN-OPERATIVE/PROCED URE REPORT 10/30/2023 12:00 AM C 40A CREW CHIEF INR,POCT Routine 10/29/2023 HOME MONITOR AC Routine 10/29/2023 12:00 AM C 40A CREW CHIEF XR CHEST 1 VIEW PORTABLE STAT 10/25/2023 5:07 PM C 40A CREW CHIEF HOME MONITOR AC Routine 10/25/2023 12:00 AM C 40A CREW CHIEF SCAN-OPERATIVE/PROCED URE REPORT 10/25/2023 12:00 AM C 40A CREW CHIEF SCAN-CT INTERPRETATION 10/23/2023 12:00 AM C 40A CREW CHIEF HOME MONITOR AC Routine 10/18/2023 12:00 AM C 40A CREW CHIEF from Last 3 Months Results * HOME MONITOR AC (12/25/2023 12:00 AM C 40A CREW CHIEF) Only the most recent of10 resultswithin the time period is included. PATIENT REPORTED HOME INR 2.6 2.00 - 3.00 [facility]OR[facility] 12/25/2023 Franklin Squires MD OTHER [facility] [address] [place] [address] * SCAN CORRESP-LABORATORY RESULTS (11/21/2023 3:07 PM C 40A CREW CHIEF) Scanner OTHER * (ABNORMAL) PROTIME-INR (11/21/2023 1:04 PM C 40A CREW CHIEF) INR 2.6(H) <1.3 11/21/2023 3:41 PM C 40A CREW CHIEF [facility] PROTIME 28.2(H) 10.3 - 12.3 sec 11/21/2023 3:41 PM C 40A CREW CHIEF [facility] Blood BLOOD SPECIMEN / Unknown Venipuncture / Unknown 11/21/2023 1:04 PM C 40A CREW CHIEF 11/21/2023 1:05 PM C 40A CREW CHIEF Narrative [facility] - 11/21/2023 3:41 PM C 40A CREW CHIEF ?Therapeutic Range 2.0-3.0 for most anticoagulated patients [...] is on UFH. Franklin Squires MD HEMATOLOGY [facility] [address] [place] [address] * HEMOGLOBIN A1C MONITORING (POCT) (11/21/2023 1:04 PM C 40A CREW CHIEF) Pathologist [facility] HEMOGLOBIN A1C MONITORING (POCT) 6.1 <=6.4 % 11/21/2023 1:12 PM C 40A CREW CHIEF [facility] Blood BLOOD SPECIMEN / Unknown Venipuncture / Unknown 11/21/2023 1:04 PM C 40A CREW CHIEF 11/21/2023 1:05 PM C 40A CREW CHIEF Narrative [facility] - 11/21/2023 1:12 PM C 40A CREW CHIEF ? (<=6.9%) ? Indicates good control ? (7.0% to 7.9%) ? Indicates fair control ? (>=8.0%) ? Indicates poor control ?? NOTE: ??These thresholds are guidelines and ?individual targets may vary. Falsely low levels may be seen with: Recent Transfusion, Recent Significant Blood Loss, Hemolytic Diseases, or Falsely elevated levels may be seen with: Untreated Anemias, Splenectomy ? Franklin Squires MD CHEMISTRY [facility] [address] [place] [address] * SCAN-LABORATORY REPORT (11/06/2023 12:00 AM C 40A CREW CHIEF) Scanner OTHER * INR,POCT (11/05/2023) Only the most recent of8 resultswithin the time period is included. INR 2.6 [facility] Blood BLOOD SPECIMEN / Unknown 11/05/2023 Patient Reported LABORATORY Performing Organization Address City/[facility]/ZIP Co de Phone Number [facility] [address] [place] [address] * SCAN-OPERATIVE/PROCEDURE REPORT (10/30/2023 12:00 AM C 40A CREW CHIEF) Scanner OTHER * XR CHEST 1 VIEW PORTABLE (10/25/2023 5:07 PM C 40A CREW CHIEF) Anatomical Region Laterality Modality HEART, THORAX, CHEST Digital Rad iography 10/25/2023 6:03 PM C 40A CREW CHIEF Impressions 10/25/2023 6:03 PM C 40A CREW CHIEF 1. Right PICC line is present with the tip at the cavoatrial junction. Dictated by Gordy Malik MD @ 10/25/2023 6:03:07 PM Dictated by: Gordy Malik MD @ 10/25/2023 18:03:23 (Electronically Signed) Narrative 10/25/2023 6:03 PM C 40A CREW CHIEF For Patients: ??As a result of the Century Cures Act, medical imaging exams and procedure [...] IMAGING * SCAN-OPERATIVE/PROCEDURE REPORT (10/25/2023 12:00 AM C 40A CREW CHIEF) Narrative 10/25/2023 12:00 AM C 40A CREW CHIEF Ordered by an unspecified provider. Other Clinical Staff OTHER * SCAN-CT INTERPRETATION (10/23/2023 12:00 AM C 40A CREW CHIEF) Anatomical Region Laterality Modality Other Scanner OTHER [...] 12 months since positive culture): resides in acute/longterm care, receiving hemodialysis, has chronic open wounds/skin damage, has long-term percutaneous indwelling medical devices Exclusions for nares collection (if <12 months since positive culture) include all of the previous exclusions plus patients on antibiotics 7 days prior to collection 03/13/2018 2023 Advance Directives Documents on File Type Date Recorded Patient Risk Advisor Expl anation Healthcare Directive 05/09/2023 023 Healthcare [...] Status Discussion: Per Existing Order Care Teams Director Operating Room Relationship Specialty Start Date End Date Franklin Squires MD [address] [address] PCP - General Family Practice 10/18/15 Zelalem Cohen MD Physical Therapist 03/13/12 May Randle MD Physical Medicine and Rehabilitation 03/13/12 [place], ANTHONY KruegerW [address] [place] [address] Book Retailer 05/03/17 Diane Charles MD [address] [place] [address] Surgery - Urology 01/17/23 Julia Ware, RN [address] [place] [address] Registered Nurse 07/17/23
--- OUTSIDE RECORDS SUMMARY | 2023-12-30 12:47 | XMS_ITS | Encounter Summary ---
Author Name Unknown Organization [facility] Address [address], [place] [address] Care Team Providers Care Distribution Superintendent Name Role Phone Franklin Squires MD Primary Care Provider Encounter Details Date Type Department Care Team (Late st Contact Info) Description 07/28/2014 Consent for Procedure/Treatme nt [facility] Department INFORMED CONSENT RECORD Social History Tobacco [...] on filedocumented in this encounter Care Teams Distribution Superintendent Relationship Specialty Start Date End Date Franklin Squires MD [address] [facility] [place] [address] PCP - General Family Practice 03/08/16 documented as of this encounter
--- OUTSIDE RECORDS SUMMARY | 2023-12-30 12:47 | XMS_ITS | Encounter Summary ---
Author Name Unknown Organization [facility] Address [address], [place] [address] Care Team Providers Care Flying I Instructor Name Role Phone Franklin Squires MD Primary Care Provider Encounter Details Date Type Department Care Team (Late st Contact Info) Description 03/08/2016 Consent for Procedure/Treatme nt [facility] INFORMED CONSENT RECORD Social History [...] on filedocumented in this encounter Care Teams Flying I Instructor Relationship Specialty Start Date End Date Franklin Squires MD [address] [facility] [place] [address] PCP - General Family Practice 03/08/16 documented as of this encounter
--- OUTSIDE RECORDS SUMMARY | 2023-12-30 12:47 | XMS_ITS | Encounter Summary ---
Author Name Unknown Organization [facility] Address [address] [address] Care Team Providers Care Paranormal Investigator Name Role Phone Franklin Squires MD Primary Care Provider [phone] Encounter Details Date Type Department Care Team (Late st Contact Info) Description 05/24/2016 Consent for Procedure/Treatme nt [facility] INFORMED [...] on filedocumented in this encounter Care Teams Paranormal Investigator Relationship Specialty Start Date End Date Franklin Squires MD 100 [facility] [place] [address] PCP - General Family Practice 03/08/16 documented as of this encounter
--- OUTSIDE RECORDS SUMMARY | 2023-12-30 12:47 | XMS_ITS | Encounter Summary ---
Author Name Unknown Organization [facility] Address [address], [place] [address] Care Team Providers Care Heart Specialist Name Role Phone Franklin Squires MD Primary Care Provider [phone] Encounter Details Date Type Department Care Team (Late st Contact Info) Description 11/23/2015 Correspondence External to External, [place] [address] LETTER [facility] Social History Tobacco Use Types Packs/Day [...] on filedocumented in this encounter Care Teams Heart Specialist Relationship Specialty Start Date End Date Franklin Squires MD 100 [facility] [place] [address] PCP - General Family Practice 03/08/16 documented as of this encounter
--- OUTSIDE RECORDS SUMMARY | 2023-12-30 12:47 | XMS_ITS | Encounter Summary ---
Author Name Unknown Organization [facility] Address [address], [place] [address] Care Team Providers Care Magneto Electrician Name Role Phone Franklin Squires MD Primary Care Provider Encounter Details Date Type Department Care Team (Late st Contact Info) Description 12/16/2014 Correspondence External to External, Provider No address [place] [phone] MEDICARE PLAN OF CARE RECERT Social History [...] End Date Franklin Squires MD [address] [facility] [address] PCP - General Family Practice 03/08/16 documented as of this encounter
--- OUTSIDE RECORDS SUMMARY | 2023-12-30 12:47 | XMS_ITS | Clinical Summary ---
Author Name Unknown Organization [facility] Address [address] [place] [address] Care Team Providers Care Weatherization Installer Name Role Phone Franklin Squires MD Primary Care Provider [phone] Source Comments You are receiving this document as you are listed as the primary care provider,follow-up provider, or the patient has been referred to you for consultation.This is in compliance with the Medicare and[facility] EHR Incentive Program,which states Providers who transition their patient to another setting of careor provider of care or refers their patient to another provider of care shouldprovide summary care record for each transition of care or referral. [facility] Allerg[facility] Active Allergy Reactions Criticality Noted Date Comments Amoxicillin Rash 06/07/2015 Metolazone Itching 02/21/2017 Morphine And Related Other, see comments 2016 confusion Penicillins Rash 10/21/2014 Piperacillin Sod-Tazobactam So Unknown 02/21 Piperacillin-Tazobactam In Dex Rash 02/21 Sulfasalazine Rash 06/07/2015 Sulfa Antibiotics Rash 04/27/2010 Medications Medication Sig Dispensed Refills Start Date End Date Status Multiple Vitamins-Minerals (CENTRUM SILVER OR) Take 1 Tab by mouth daily. Active LORazepam (AKA ATIVAN) 0.5 MG tablet Take 0.5 mg by mouth every 4 hours as needed for Anxiety. Active warfarin (AKA COUMADIN) 5 MG tabletIndications:De ep Vein Thrombosis Take 1 tablet (5mg) by mouth on Mondays and take 1.5 tablets (7.5mg) all other days of the week Indications: Blood Clot in a Deep Vein Active buPROPion (AKA WELLBUTRIN SR) 150 MG 12 hour release tabletIndications:Ma matt Depressive Disorder Take 1 Tab by mouth two times a day. Indications: Major Depressive Disorder 10/21/2014 Active atorvastatin (LIPITOR) 40 MG tabletIndications:hi [...] mg by mouth two times a day. Active DULoxetine (AKA CYMBALTA) 20 MG capsule Taking 4 tabs in morning and 2 tabs in afternoon Active Potassium Chloride (KLOR-CON OR) Takes 40 meq twice daily Active gabapentin (AKA NEURONTIN) 400 MG capsule TAKE 1 CAPSULE THREE TIMES A DAY FOR PAIN 270 Cap 0 09/02/2015 Active OXYCODONE HCL OR as needed. Active sennosides-docusate sodium (SENOKOT S) 8.6-50 MG per tablet Take 1 Tab by mouth daily. Active HYDROcodone-acetamin ophen (NORCO) 10-325 MG tablet Take 1 Tab by mouth. 07/19/2016 Acti ve fludrocortisone (FLORINEF) 0.1 MG tablet Take 100 mcg by mouth. Active Active Problems Problem Noted Date Diagnosed [...] 0 06/10/2014 History of anticoagulant therapy 02/17/2014 skilled nursing current use of anticoagulant therapy 0 02/17/2014 [...] Comments Blood Pressure 120/63 01/18/2022 12:59 PM MANAGER RN CASE Pulse 87 01/18/2022 12:59 PM MANAGER RN CASE Temperature 36.3 ??C (97.4 ??F) 01/18/2022 12:59 [...] 07/29/2014 Zoster/Shingles (2 of 3) 01/11/2016 11/16/2015, 03/11 Diabetes: Creatinine 01/06/2017 01/06/2016, 06/07/2015, 10/21/2014, Additional history exists DTaP/Tdap/Td (2 - Tdap) 06/28/2021 06/28/2011 COVID-19 Vaccine ( season) 2023 08/06/2021, 01/25/2021, 01/02/2021 Influenza (#1) 2023 09/03/2021, 07/2020, 08/20/2019, Additional [...] this topic Medical Devices Implanted Type Area License Issuer Device Identifier Shelf Expiration Date Model / Serial / Lot [id number] 4ml Tisseel Explanted:([place] ntity not on file) BIOLOGIC N/A: NECK Lynne Fenwall 09/10/2011 [id number] / [id number] / [id number] Description:posterior Cath Intrathecal Indura - [id number] Implanted:Qty: 1 on 05/09/2010 at [facility] DEVICE Right: LUMBAR SPINE hoohbe 01/18/2012 8709 / N/A / [id number] Cath Intrathecal Indura - [id number] Implanted:Qty: 1 on 05/29/2010 at [facility] DEVICE hoohbe 8709 / / Scr Indira Conic 7.3x80 - [id number] Implanted:Qty: 1 on 03/13/2011 at [facility] DEVICE Right: FEMUR DISTAL Source MDx [place] 02.207.28 0 / NONE / NONE Plt Lcp Cndl Rt 4.5x170 6h - [id number] Implanted:Qty: 1 on 03/13/2011 at [facility] DEVICE Right: FEMUR DISTAL Source MDx [place] 222.656 / NONE / NONE Description:6 hole 170mm rig ht 4.5mm lcp condylar plate Scr Didier Ss Sftp 4.5x40 - [id number] Implanted:Qty: 1 on 03/13/2011 at [facility] DEVICE Left: FEMUR DISTAL Synthes [place] 214.840 / NONE / NONE Scr Didier Ss Sftp 4.5x50 - [id number] Implanted:Qty: 1 on 03/13/2011 at [facility] DEVICE Left: FEMUR DISTAL [employer] [place] 214.850 / NONE / NONE Scr Indira Lk 5.0x80 - [id number] Implanted:Qty: 2 on 03/13/2011 at [facility] DEVICE Left: FEMUR DISTAL [employer] [place] 02.205.08 0 / NONE / NONE Scr Indira Lk 5.0x85 - [id number] Implanted:Qty: 2 on 03/13/2011 at [facility] DEVICE Left: FEMUR DISTAL [employer] [place] 02.205.08 5 / NONE / NONE Scr Lk Sftp T25 5.0x50 - [id number] Implanted:Qty: 1 on 03/13/2011 at [facility] DEVICE Left: FEMUR DISTAL [employer] [place] 212.219 / NONE / NONE Scr Lk Sftp T25 5.0x60 - [id number] Implanted:Qty: 1 on 03/13/2011 at [facility] DEVICE Left: FEMUR DISTAL [employer] [place] 212.221 / NONE / NONE Scr Indira Conic 7.3x85 - [id number] Implanted:Qty: 1 on 03/13/2011 at [facility] DEVICE Left: FEMUR DISTAL [employer] [place] 02.207.28 5 / NONE / NONE Plt Lcp Cndl Lt 4.5x170 6h - [id number] Implanted:Qty: 1 on 03/13/2011 at [facility] DEVICE Left: FEMUR DISTAL [employer] [place] 222.657 / NONE / NONE Description:6 hole 170mmleng th left 4.5mm lcp condylar plate. Scr Didier Sftp 3.5x60 F-Thrd - [id number] Implanted:Qty: 1 on 03/13/2011 at [facility] DEVICE Left: TIBIA PROXIMAL [employer]ynthes [place] 204.860 / NONE / NONE Scr Star Lk Sftp 3.5x32 - [id number] Implanted:Qty: 1 on 03/13/2011 at [facility] DEVICE Left: TIBIA PROXIMAL [employer] [place] 212.112 / NONE / NONE Scr Star Lk Sftp 3.5x55 - [id number] Implanted:Qty: 2 on 03/13/2011 at [facility] DEVICE Left: TIBIA PROXIMAL [employer] [place] 212.123 / NONE / NONE Scr Star Lk Sftp 3.5x60 - [id number] Implanted:Qty: 2 on 03/13/2011 at [facility] DEVICE Left: TIBIA PROXIMAL [employer] [place] 212.124 / NONE / NONE Plt Lcp M/Prox Lt 3.5x94 4h - [id number] Implanted:Qty: 1 on 03/13/2011 at [facility] DEVICE Left: TIBIA PROXIMAL [employer] [place] 239.955 / NONE / NONE Scr Didier Ss Sftp 4.5x36 - [id number] Implanted:Qty: 1 on 03/13/2011 at [facility] DEVICE Right: FEMUR DISTAL [employer] [place] 214.836 / NONE / NONE Scr Didier Ss Sftp 4.5x44 - [id number] Implanted:Qty: 1 on 03/13/2011 at [facility] DEVICE Right: FEMUR DISTAL [employer] [place] 214.844 / NONE / NONE Scr Indira Lk 5.0x75 - [id number] Implanted:Qty: 1 on 03/13/2011 at [facility] DEVICE Right: FEMUR DISTAL [employer] [place] 02.205.07 5 / NONE / NONE Scr Indira Lk 5.0x85 - [id number] Implanted:Qty: 2 on 03/13/2011 at [facility] DEVICE Right: FEMUR DISTAL [employer] [place] 02.205.08 5 / NONE / NONE Scr Lk Sftp T25 5.0x44 - [id number] Implanted:Qty: 1 on 03/13/2011 at [facility] DEVICE Right: FEMUR DISTAL [employer] [place] 212.216 / NONE / NONE Scr Lk Sftp T25 5.0x65 - [id number] Implanted:Qty: 1 on 03/13/2011 at [facility] DEVICE Right: FEMUR DISTAL [employer] [place] 212.222 / NONE / NONE Plt Lp T Ti Str 4h - [id number] Implanted:Qty: 3 on 07/28/2014 by Cooper Shelley MD at [facility] DEVICE Right: SKULL [employer]ynthes [place] 421.504 / / Scr Matrix Sfdr 4mm - [id number] Implanted:Qty: 6 on 07/28/2014 by Cooepr Shelley MD at [facility] DEVICE Right: SKULL [employer]ynthes [place] 04.503.10 4.01 / / Lead Linear 3-4 8 Contact 50cm - [id number] Implanted:Qty: 1 on 03/08/2016 by Zelalem Cohen DO at [facility] DEVICE N/A: OTHER-SEE DESCRIPTION Phil Campbell [facility] 09/10/2017 [id number] 2500 / / [id number] Description:LUMBAR Lead Linear 3-4 8 Contact 50cm - [id number] Implanted:Qty: 1 on 03/08/2016 by Zelalem Cohen DO at [facility] DEVICE N/A: OTHER-SEE DESCRIPTION Phil Campbell Sci Neuro Surg 09/10/2017 [id number] 2500 / / [id number] Description:LUMBAR Lead Linear 3-4 8 Contact 50cm - [id number] Implanted:Qty: 1 on 03/08/2016 by Zelalem Cohen DO at [facility] DEVICE N/A: OTHER-SEE DESCRIPTION Phil Campbell Sci Neuro Surg 09/10/2017 [id number] 2500 / / [id number] Description:LUMBAR Lead Linear 3-4 8 Contact 50cm - [id number] Implanted:Qty: 1 on 03/08/2016 by Zelalem Cohen DO at [facility] DEVICE N/A: OTHER-SEE DESCRIPTION Phil Campbell [facility] 09/10/2017 [id number] 2500 / / [id number] Description:LUMBAR Lead Linear 3-4 8 Contact 50cm - [id number] Implanted:Qty: 1 on 05/24/2016 by Zelaelm Cohen DO at [facility] DEVICE N/A: SPINE LUMBAR POSTERIOR Phil Campbell [facility] 01/31/2018 [id number] 2500 / [id number] / Lead Linear 3-4 8 Contact 50cm - [id number] Implanted:Qty: 1 on 05/24/2016 by Zelalem Cohen DO at [facility] DEVICE N/A: SPINE LUMBAR POSTERIOR Phil Campbell [facility] 04/26/2018 [id number] 2500 / [id number] / Lead Linear 3-4 8 Contact 50cm - [id number] Implanted:Qty: 1 on 05/24/2016 by Zelalem Cohen DO at [facility] DEVICE N/A: SPINE LUMBAR POSTERIOR Phil Campbell [facility] Neuro [facility]urg 04/26/2018 [id number] 2500 / [id number] / Lead Linear 3-4 8 Contact 50cm - [id number] Implanted:Qty: 1 on 05/24/2016 by Zelalem Cohen DO at [facility] DEVICE N/A: SPINE LUMBAR POSTERIOR Phil Campbell [facility] 04/26/2018 [id number] 2500 / [id number] / Generator Pulse Spectra - [id number] Implanted:Qty: 1 on 05/24/2016 by Zelalem Cohen DO at [facility] DEVICE N/A: SPINE LUMBAR POSTERIOR Phil Campbell [facility] Neuro Surg 05/08/2018 [id number] / [id number] / [id number] [place] Nabilik - [id number] Implanted:Qty: 1 on 05/24/2016 by Zelalem Cohen DO at [facility] DEVICE N/A: SPINE LUMBAR POSTERIOR Phil Campbell Sci Neuro Surg 05/02/2018 [id number] 60 / / [id number] [place] Clik - [id number] Implanted:Qty: 1 on 05/24/2016 by Zelalem Cohen DO at [facility] DEVICE N/A: SPINE LUMBAR POSTERIOR Phil Campbell Sci Neuro Surg 02/28/2018 [id number] 60 / / [id number] Procedures Procedure Name Priority Date/Time Associated Diagnosis Comments CREATININE/GFR, WB POC Routine 01/06/2016 12:04 PM MANAGER RN CASE Back pain, 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 HGB A1C Routine 07/29/2014 3:19 AM CDT from Last 3 Months or Most Recently Relevant to Health Maintenance Results * CREATININE/GFR, WB POC (01/06/2016 12:04 PM MANAGER RN CASE) Creat Whole Blood 0.9 0.66 - 1.25 mg/dl [facility] GFR, Estimated >60 >60 ml/min/1.7 3m2 [facility] GFR, Est., If Black >60 >60 ml/min/1.7 3m2 [facility] 01/06/2016 12:0 4 PM MANAGER RN CASE 01/06/2016 12:21 PM MANAGER RN CASE Trae Blair MD LAB_[facility] [phone] * (ABNORMAL) HGB A1C (07/29/2014 3:19 AM CDT) Hgb A1c 6.4(H) 4.3 - 6.1 % [facility] Comment: The usual A1C goal for people with diabetes, age 18-75, is <8.0%. Physicians may recommend a higher or lower goal for specific individuals. 07/29/2014 3:19 AM CDT 07/29/2014 3:22 AM CDT [facility] - 07/29/2014 12:53 PM CDT Performed at [facility], [address] ??[address] [place] Wei PA-C LAB_[address] [address] from Last 3 Months or Most Recently Relevant to Health Maintenance Advance Directives Latest Code Status on File [...] 5:44 PM 07/28/2014 6:50 PM Care Teams Weatherization Installer Relationship Specialty Start Date End Date Franklin Squires MD 100 [facility] [place] [address] PCP - General Family Practice 03/08/16
--- OUTSIDE RECORDS SUMMARY | 2023-12-30 12:47 | XMS_ITS | Encounter Summary ---
Author Name Unknown Organization [facility] Address [address] [place] [address] Care Team Providers Care Hat Liner Name Role Phone Franklin Squires MD Primary Care Provider [phone] Encounter Details Date Type Department Care Team (Late st Contact Info) Description 01/06/2016 Correspondence [facility] Radiology [address] [place] [address] Radiology, Provider MRI SAFETY SHEET AND COMPATIBILITY [...] on filedocumented in this encounter Care Teams Hat Liner Relationship Specialty Start Date End Date Franklin Squires MD [address] [place] [address] [place] [address] PCP - General Family Practice 03/08/16 documented as of this encounter
--- OUTSIDE RECORDS SUMMARY | 2023-12-30 12:47 | XMS_ITS | Encounter Summary ---
Author Name Unknown Organization [facility] Address [address] [address] Care Team Providers Care Wilton Weaver Name Role Phone Franklin Squires MD Primary Care Provider [phone] Encounter Details Date Type Department Care Team ([facility] st Contact Info) Description 07/08/2015 Correspondence [facility] Physical Therapy [address] [place] [address] Trudi Raymundo, PT [address] [place] [address] ADDENDUM FOR LETTER OF MEDICAL NECESSITY Social [...] on filedocumented in this encounter Care Teams [place] Weaver Relationship Specialty Start Date End Date Franklin Squires MD 100 [facility] [place] [address] PCP - General Family Practice 03/08/16 documented as of this encounter
--- OUTSIDE RECORDS SUMMARY | 2023-12-30 12:47 | XMS_ITS | Encounter Summary ---
Author Name Unknown Organization [facility] Address [address], [place] [address] Care Team Providers Care Radiologist Chief Of Breast Imaging Name Role Phone Franklin Squires MD Primary Care Provider [phone] Encounter Details Date Type Department Care Team (Late st Contact Info) Description 12/14/2014 [facility] 401 Physical Medicine 401 [facility] [place] [address] May Randle MD [address] [place] [address] DETAILED PRODUCT DESCRIPTION Social History Tobacco Use [...] on filedocumented in this encounter Care Teams Radiologist Chief Of Breast Imaging Relationship Specialty Start Date End Date Franklin Squires MD 100 [facility] [place] [address] PCP - General Family Practice 03/08/16 documented as of this encounter
--- OUTSIDE RECORDS SUMMARY | 2023-12-30 12:47 | XMS_ITS | Encounter Summary ---
Author Name Unknown Organization [facility] Address [address], [place] [address] Care Team Providers Care Water Taxi Captain Name Role Phone Franklin Squires MD Primary Care Provider Encounter Details Date Type Department Care Team (Late st Contact Info) Description 08/20/2014 Outside Hospital External to [facility] HOSP-H/P Social History Tobacco Use Types Packs/Day [...] on filedocumented in this encounter Care Teams Water Taxi Captain Relationship Specialty Start Date End Date Franklin Squires MD 100 [facility] [address] PCP - General Family Practice 03/08/16 documented as of this encounter
--- OUTSIDE RECORDS SUMMARY | 2023-12-30 12:47 | XMS_ITS | Encounter Summary ---
Author Name Unknown Organization [facility] Address [address] [place] [address] Care Team Providers Care Radar Operator Name Role Phone Franklin Squires MD Primary Care Provider [phone] Encounter Details Date Type Department Care Team (Late st Contact Info) Description 06/07/2015 Correspondence [facility] Radiology [address] [place] [address] Radiology, Provider MRI SAFETY SHEET AND COMPATIBILITY [...] on filedocumented in this encounter Care Teams Radar Operator Relationship Specialty Start Date End Date Franklin Squires MD [address] [place] [address] [place] [address] PCP - General Family Practice 03/08/16 documented as of this encounter
--- OUTSIDE RECORDS SUMMARY | 2023-12-30 12:47 | XMS_ITS | Encounter Summary ---
Author Name Unknown Organization [facility] Address [address], [place] [address] Care Team Providers Care Steel Layout Worker Name Role Phone Franklin Squires MD Primary Care Provider Encounter Details Date Type Department Care Team (Late st Contact Info) Description 08/22/2014 Outside Hospital External to [facility] HOSP-D/C SUMMARY Social History Tobacco Use Types [...] on filedocumented in this encounter Care Teams Steel Layout Worker Relationship Specialty Start Date End Date Franklin Squires MD 100 [facility] [place] [address] PCP - General Family Practice 03/08/16 documented as of this encounter
--- OUTSIDE RECORDS SUMMARY | 2023-12-30 12:47 | XMS_ITS | Encounter Summary ---
Author Name Unknown Organization [facility] Address [address], [place] [address] Care Team Providers Care Retort Load Expediter Name Role Phone Franklin Squires MD Primary Care Provider [phone] Encounter Details Date Type Department Care Team ([facility] st Contact Info) Description 02/09/2016 [facility]ence [facility] 401 NeuroSurgery 401 [facility] [place], [place] [id number] Jodi Aguila PA-C [address] [place] [address] PATIENT LIFT PRESCRIPTION Social History Tobacco Use [...] on filedocumented in this encounter Care Teams Retort Load Expediter Relationship Specialty Start Date End Date Franklin Squires MD 100 [facility] [place] [address] PCP - General Family Practice 03/08/16 documented as of this encounter
--- OUTSIDE RECORDS SUMMARY | 2023-12-30 12:47 | XMS_ITS | Encounter Summary ---
Author Name Unknown Organization [facility] Address [address] [address] Care Team Providers Care Capacity Planning Manager Name Role Phone Franklin Squires MD Primary Care Provider Encounter Details Date Type Department Care Team (Late st Contact Info) Description 07/28/2014 Outside Hospital External to External, Provider No address [address] ER VISIT/TRANSFER Social History Tobacco Use [...] on filedocumented in this encounter Care Teams Capacity Planning Manager Relationship Specialty Start Date End Date Franklin Squires MD 100 [facility] [place] [address] PCP - General Family Practice 03/08/16 documented as of this encounter
--- OUTSIDE RECORDS SUMMARY | 2023-12-30 12:47 | XMS_ITS | Encounter Summary ---
Author Name Unknown Organization [facility] Address [address] [place] [address] Care Team Providers Care Splicing Technician Name Role Phone Franklin Squires MD Primary Care Provider Encounter Details Date Type Department Care Team (Late st Contact Info) Description 09/07/2014 Correspondence [facility] Radiology [address] [place] [address] Radiology, Provider MRI SAFETY SHEET AND COMPATIBILITY [...] on filedocumented in this encounter Care Teams Splicing Technician Relationship Specialty Start Date End Date Franklin Squires MD [address] [place] [address] [place] [address] PCP - General Family Practice 03/08/16 documented as of this encounter
--- OUTSIDE RECORDS SUMMARY | 2023-12-30 12:47 | XMS_ITS | Encounter Summary ---
Author Name Unknown Organization [facility] Address [address] [address] Care Team Providers Care Certified Medication Aide Name Role Phone Franklin Squires MD Primary Care Provider [phone] Encounter Details Date Type Department Care Team (Late st Contact Info) Description 11/10/2014 Correspondence [facility] Physical Therapy [address] [place] [address] Trudi Raymundo, PT [address] [place] [address] LETTER OF MEDICAL NECESSITY Social History Tobacco [...] on filedocumented in this encounter Care Teams Certified Medication Aide Relationship Specialty Start Date End Date Franklin Squires MD 100 [facility] [address] PCP - General Family Practice 03/08/16 documented as of this encounter
--- OUTSIDE RECORDS SUMMARY | 2023-12-30 12:47 | XMS_ITS ---
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 Treatments may have been administered in another system. Resolved Problems Problem Noted Date Diagnosed Date Resolved Date Gait abnormality 01/17/2012 02/09/2015 Back pain 01/17/2012 02/09/2015 Paraplegia 04/04/2011 02/09/2015 Osteoporosis 03/06/2011 02/09/2015 Urinary tract infection 12/24/200603/11
--- OUTSIDE RECORDS SUMMARY | 2023-12-30 12:47 | XMS_ITS | Encounter Summary ---
Author Name Unknown Organization [facility] Address [address], [place] [address] Care Team Providers Care Rn Cvor Name Role Phone Franklin Squires MD Primary Care Provider Encounter Details Date Type Department Care Team (Late st Contact Info) Description 12/11/2017 Correspondence [facility] Physical Medicine 295 [facility] [place], [place] [phone] May Randle MD [address] [place] [address] [employer] Social History Tobacco Use [...] filedocumented in this encounter Care Teams Rn Cvor Relationship Specialty Start Date End Date Franklin Squires MD 100 [facility] [place] [address] PCP - General Family Practice 03/08/16 documented as of this encounter
--- OUTSIDE RECORDS SUMMARY | 2023-12-30 12:47 | XMS_ITS | Encounter Summary ---
Author Name Unknown Organization [facility] Address [address] [address] Care Team Providers Care Long Haul Truck Driver Name Role Phone Franklin Squires MD Primary Care Provider [phone] Encounter Details Date Type Department Care Team (Late st Contact Info) Description 08/20/2014 Outside Hospital External to [facility]-AD[facility] H/P Social History Tobacco Use Types [...] on filedocumented in this encounter Care Teams Long Haul Truck Driver Relationship Specialty Start Date End Date Franklin Squires MD 100 [facility] [place] [address] PCP - General Family Practice 03/08/16 documented as of this encounter
--- OUTSIDE RECORDS SUMMARY | 2023-12-30 12:48 | XMS_ITS | Encounter Summary ---
Author Name Unknown Organization [facility] Address [address] [place] [address] Care Team Providers Care Rounding Machine Operator Name Role Phone Franklin Squires MD Primary Care Provider [phone] Encounter Details Date Type Department Care Team (Late st Contact Info) Description 07/23/2013 [facility]ence [facility] 401 Interventional Pain Management 401 [facility] [place] [address] Zelalem Cohen DO [address] [place] [address] [employer] Social History Tobacco Use Types [...] Cohen MD - 07/23/2013 12:00 AM CDT DEVELOPER ARCHITECT documented in this encounter Plan of Treatment Not on file documented as of this encounter Visit Diagnoses Not on filedocumented in this encounter Care Teams Rounding Machine Operator Relationship Specialty Start Date End Date Franklin Squires MD 100 [facility] [place] [address] PCP - General Family Practice 03/08/16 documented as of this encounter
--- OUTSIDE RECORDS SUMMARY | 2023-12-30 12:48 | XMS_ITS | Encounter Summary ---
Author Name Unknown Organization [facility] Address [address] [place] [address] Care Team Providers Care Local Truck Driver Name Role Phone Franklin Squires MD Primary Care Provider Encounter Details Date Type Department Care Team (Late st Contact Info) Description 05/04/2014 Correspondence [facility] 401 Physical Medicine 401 [facility] [place] [address] May Randle MD [address] [place] [address] LETTER OF MEDICAL NECESSITY FOR A WHEELCHAIR [...] on filedocumented in this encounter Care Teams Local Truck Driver Relationship Specialty Start Date End Date Franklin Squires MD 100 [facility] [place] [address] PCP - General Family Practice 03/08/16 documented as of this encounter
--- OUTSIDE RECORDS SUMMARY | 2023-12-30 12:48 | XMS_ITS | Encounter Summary ---
Author Name Unknown Organization [facility] Address [address] [address] Care Team Providers Care Acls Nurse Name Role Phone Franklin Squires MD Primary Care Provider [phone] Encounter Details Date Type Department Care Team (Late st Contact Info) Description 09/17/2013 Correspondence External to External, [place] [address] EMPOWERMENT RULES Social History Tobacco Use Types [...] External, Provider - 09/17/2013 12:00 AM CST E SHOW JUDGE documented in this encounter Plan of Treatment Not on file documented as of this encounter Visit Diagnoses Not on filedocumented in this encounter Care Teams Acls Nurse Relationship Specialty Start Date End Date Franklin Squires MD [facility] [place] [address] PCP - General Family Practice 03/08/16 documented as of this encounter
--- OUTSIDE RECORDS SUMMARY | 2023-12-30 12:48 | XMS_ITS | Encounter Summary ---
Author Name Unknown Organization [facility] Address [address] [place] [address] Care Team Providers Care Keller Machine Operator Name Role Phone Franklin Squires MD Primary Care Provider Encounter Details Date Type Department Care Team (Late st Contact Info) Description 01/08/2013 Scanned History External to Transferred Record, Provider [facility] Social History Tobacco Use Types [...] on filedocumented in this encounter Care Teams Keller Machine Operator Relationship Specialty Start Date End Date Franklin Squires MD 100 [facility] [place] [address] PCP - General Family Practice 03/08/16 documented as of this encounter
--- OUTSIDE RECORDS SUMMARY | 2023-12-30 12:48 | XMS_ITS | Encounter Summary ---
Author Name Unknown Organization [facility] Address [address] [address] Care Team Providers Care Food And Beverage Assistant Name Role Phone Franklin Squires MD Primary Care Provider Encounter Details Date Type Department Care Team (Late st Contact Info) Description 06/11/2014 [facility]ence [facility] 401 Physical Medicine 401 [facility] [place] [address] May Randle MD [address] [place] [address] [facility] Social History Tobacco Use Types Packs/Day [...] filedocumented in this encounter Care Teams Food And Beverage Assistant Relationship Specialty Start Date End Date Franklin Squires MD 100 [facility] [place] [address] PCP - General Family Practice 03/08/16 documented as of this encounter
--- OUTSIDE RECORDS SUMMARY | 2023-12-30 12:48 | XMS_ITS | Encounter Summary ---
Author Name Unknown Organization [facility] Address [address], [place] [address] Care Team Providers Care Pharmacist Name Role Phone Franklin Squires MD Primary Care Provider Encounter Details Date Type Department Care Team (Late st Contact Info) Description 12/16/2013 Correspondence [facility] Radiology [address] [place] [address] Radiology, Provider MRI SAFETY SHEET AND COMPATIBILITY [...] Radiology, Provider - 12/16/2013 12:00 AM CST M BOX HAND documented in this encounter Plan of Treatment Not on file documented as of this encounter Visit Diagnoses Not on filedocumented in this encounter Care Teams Pharmacist Relationship Specialty Start Date End Date Franklin Squires MD 100 [facility] [place] [address] PCP - General Family Practice 03/08/16 documented as of this encounter
--- OUTSIDE RECORDS SUMMARY | 2023-12-30 12:48 | XMS_ITS | Encounter Summary ---
Author Name Unknown Organization [facility] Address [address], [place] [address] Care Team Providers Care Wash Operator Name Role Phone Franklin Squires MD Primary Care Provider Encounter Details Date Type Department Care Team ([facility] st Contact Info) Description 10/26/2013 Correspondence [facility] Physical Therapy [address] [place] [address] Trudi Raymundo, PT [address] [place] [address] LETTER OF MEDICAL NECESSITY Social History Tobacco [...] PT - 10/26/2013 12:00 AM CST ER CHIEF documented in this encounter Plan of Treatment Not on file documented as of this encounter Visit Diagnoses Not on filedocumented in this encounter Care Teams Wash Operator Relationship Specialty Start Date End Date Franklin Squires MD 100 [facility] [place] [address] PCP - General Family Practice 03/08/16 documented as of this encounter
--- OUTSIDE RECORDS SUMMARY | 2023-12-30 12:48 | XMS_ITS | Encounter Summary ---
Author Name Unknown Organization [facility] Address [address], [place] [address] Care Team Providers Care Foamite Mixer Name Role Phone Franklin Squires MD Primary Care Provider [phone] Encounter Details Date Type Department Care Team (Late st Contact Info) Description 04/24/2012 Correspondence [facility] Radiology [address] [place] [address] Radiology, Provider MRI SAFETY SHEET AND COMPATIBILITY [...] on filedocumented in this encounter Care Teams Foamite Mixer Relationship Specialty Start Date End Date Franklin Squires MD 100 [facility] [place] [address] PCP - General Family Practice 03/08/16 documented as of this encounter
--- OUTSIDE RECORDS SUMMARY | 2023-12-30 12:48 | XMS_ITS | Encounter Summary ---
Author Name Unknown Organization [facility] Address [address], [place] [address] Care Team Providers Care Emergency Room Orderly Name Role Phone Franklin Squires MD Primary Care Provider Encounter Details Date Type Department Care Team (Latest Contact Info) Description 06/04/2014 Correspondence [facility] 401 Interventional Pain Management 401 [facility] [place] [address] Zelalem Cohen, DO [address] [place] [address] MEDICAID PT INFORMATION EMPI RECOVERY Social History [...] filedocumented in this encounter Care Teams Emergency Room Orderly Relationship Specialty Start Date End Date Franklin Squires MD 100 [facility] [place] [address] PCP - General Family Practice 03/08/16 documented as of this encounter
--- OUTSIDE RECORDS SUMMARY | 2023-12-30 12:48 | XMS_ITS | Encounter Summary ---
Author Name Unknown Organization [facility] Address [address] [address] Care Team Providers Care Gear Hobber Name Role Phone Franklin Squires MD Primary Care Provider Encounter Details Date Type Department Care Team (Late st Contact Info) Description 03/11/2014 [facility]ence [facility] 401 Interventional Pain Management 401 [facility] [place] [address] Zelalem Cohen, DO [address] [place] [address] EMPI Social History Tobacco Use Types Packs/Day [...] on filedocumented in this encounter Care Teams Gear Hobber Relationship Specialty Start Date End Date Franklin Squires MD 100 [facility] [place] [address] PCP - General Family Practice 03/08/16 documented as of this encounter
--- OUTSIDE RECORDS SUMMARY | 2023-12-30 12:48 | XMS_ITS | Encounter Summary ---
Author Name Unknown Organization [facility] Address [address], [place] [address] Care Team Providers Care Automobile Mechanic Supervisor Name Role Phone Franklin Squires MD Primary Care Provider Encounter Details Date Type Department Care Team (Late st Contact Info) Description 11/13/2012 Correspondence [facility] Radiology [address] [place] [address] Radiology, Provider MRI SAFETY SHEET AND COMPATIBILITY [...] RADIOLOGY, PROVIDER - 11/13/2012 12:00 AM CST ER RELATIONSHIP MANAGER documented in this encounter Plan of Treatment Not on file documented as of this encounter Visit Diagnoses Not on filedocumented in this encounter Care Teams Automobile Mechanic Supervisor Relationship Specialty Start Date End Date Franklin Squires MD 100 [facility] [place] [address] PCP - General Family Practice 03/08/16 documented as of this encounter
--- OUTSIDE RECORDS SUMMARY | 2023-12-30 12:48 | XMS_ITS | Encounter Summary ---
Author Name Unknown Organization [facility] Address [address], [place] [address] Care Team Providers Care Client Program Manager Name Role Phone Franklin Squires MD Primary Care Provider Encounter Details Date Type Department Care Team (Late st Contact Info) Description 04/20/[address] [address] Radiology, Provider MRI SAFETY SHEET AND COMPATIBILITY [...] on filedocumented in this encounter Care Teams Client Program Manager Relationship Specialty Start Date End Date Franklin Squires MD 100 [facility] [place] [address] PCP - General Family Practice 03/08/16 documented as of this encounter
--- OUTSIDE RECORDS SUMMARY | 2023-12-30 12:48 | XMS_ITS | Encounter Summary ---
Author Name Unknown Organization [facility] Address [address] [address] Care Team Providers Care Gate Person Name Role Phone Franklin Squires MD Primary Care Provider [phone] Encounter Details Date Type Department Care Team (Late st Contact Info) Description 04/08/2013 Scanned History External to Transferred [...] filedocumented in this encounter Care Teams Gate Person Relationship Specialty Start Date End Date Franklin Squires MD 100 [facility] [place] [address] PCP - General Family Practice 03/08/16 documented as of this encounter
--- OUTSIDE RECORDS SUMMARY | 2023-12-30 12:48 | XMS_ITS | Encounter Summary ---
Author Name Unknown Organization [facility] Address [address] [address] Care Team Providers Care Travel Med Surg Rn Name Role Phone Franklin Squires MD Primary Care Provider Encounter Details Date Type Department Care Team (Late st Contact Info) Description 02/05/2014 Correspondence [facility] Physical Therapy [address] [place] [address] Trudi Raymundo, PT [address] [place] [address] LETTER OF MEDICAL NECESSITY FOR A WHEELCHAIR [...] on filedocumented in this encounter Care Teams Travel Med Surg Rn Relationship Specialty Start Date End Date Franklin Squires MD 100 [facility] [place] [address] PCP - General Family Practice 03/08/16 documented as of this encounter
== END 2023-12-30 12:43 | disposition home or self-care (01) ==
LOC: WOUND 12:42
PROVIDERS: PCP Family Medicine; Visit Provider Nurse Practitioner Family
DX: E11.622 Type 2 diabetes mellitus with other skin ulcer (principal); L89.324 Pressure ulcer of left buttock, stage 4; G82.50 Quadriplegia, unspecified
CPT/HCPCS: 11043; 97605

== ENCOUNTER 2024-01-06 12:44 | Outpatient (CLI) | payer MEDICARE, OTHER, SELFPAY | END 2024-01-06 12:45 | disposition home or self-care (01) | LOC: WOUND 12:44 | PROVIDERS: PCP Family Medicine; Visit Provider Physician Assistant | DX: L89.324 Pressure ulcer of left buttock, stage 4 (principal); M86.18 Other acute osteomyelitis, other site; G82.50 Quadriplegia, unspecified | CPT/HCPCS: 11042; 97605 ==

== ENCOUNTER 2024-01-13 12:45 | Outpatient (CLI) | payer MEDICARE, OTHER, SELFPAY | END 2024-01-13 12:46 | disposition home or self-care (01) | LOC: WOUND 12:45 | PROVIDERS: PCP Family Medicine; Visit Provider Nurse Practitioner Family | DX: M86.18 Other acute osteomyelitis, other site (principal); E11.622 Type 2 diabetes mellitus with other skin ulcer; L89.324 Pressure ulcer of left buttock, stage 4; G82.50 Quadriplegia, unspecified | CPT/HCPCS: 11042; 97605 ==

== ENCOUNTER 2024-01-20 12:37 | Outpatient (CLI) | payer MEDICARE, OTHER, SELFPAY | END 2024-01-20 12:38 | disposition home or self-care (01) | LOC: WOUND 12:37 | PROVIDERS: PCP Family Medicine; Visit Provider Nurse Practitioner Family | DX: M86.18 Other acute osteomyelitis, other site (principal); L89.324 Pressure ulcer of left buttock, stage 4; G82.50 Quadriplegia, unspecified | CPT/HCPCS: 11042; 97605 ==

== ENCOUNTER 2024-01-27 12:37 | Outpatient (CLI) | payer MEDICARE, OTHER, SELFPAY | END 2024-01-27 12:38 | disposition home or self-care (01) | LOC: WOUND 12:37 | PROVIDERS: PCP Family Medicine; Visit Provider Nurse Practitioner Family | DX: M86.18 Other acute osteomyelitis, other site (principal); E11.622 Type 2 diabetes mellitus with other skin ulcer; L89.324 Pressure ulcer of left buttock, stage 4; G82.50 Quadriplegia, unspecified | CPT/HCPCS: 11042; 97605 ==

== ENCOUNTER 2024-02-03 12:38 | Outpatient (CLI) | payer MEDICARE, OTHER, SELFPAY | END 2024-02-03 12:39 | disposition home or self-care (01) | LOC: WOUND 12:38 | PROVIDERS: PCP Family Medicine; Visit Provider Physician Assistant | DX: L89.324 Pressure ulcer of left buttock, stage 4 (principal) | CPT/HCPCS: 97597 ==

== ENCOUNTER 2024-02-10 12:40 | Outpatient (CLI) | payer MEDICARE, OTHER, SELFPAY | END 2024-02-10 12:41 | disposition home or self-care (01) | LOC: WOUND 12:40 | PROVIDERS: PCP Family Medicine; Visit Provider Nurse Practitioner Family | DX: M86.18 Other acute osteomyelitis, other site (principal); L89.324 Pressure ulcer of left buttock, stage 4; G82.50 Quadriplegia, unspecified | CPT/HCPCS: 11042; 97605 ==

== ENCOUNTER 2024-02-24 12:37 | Outpatient (CLI) | payer MEDICARE, OTHER, SELFPAY ==
--- OUTSIDE RECORDS SUMMARY | 2024-02-24 12:39 | XMS_ITS | Clinical Summary ---
Author Name Unknown Organization [facility] Address [place], [place] [address] Care Team Providers Care Liquefaction Supervisor Name Role Phone Zelalem Cohen MD Unavailable [phone] May Randle MD Unavailable [phone] Franklin Squires MD Primary Care Provider Fred Craft Unavailable [phone] Diane Charles MD Unavailable [phone] Julia Ware RN Unavailable [phone] Mónica Mcdonald RN Unavailable [phone] Allergies Active Allergy Reactions Criticality Noted Date Comments Levofloxacin Confusion 10/18/2023 Morphine Other - Describe In Comment Field 02/21/2017 confusion Sulfa (Sulfonamide Antibiotics) Rash 04/27/2010 Sulfasalazine Rash 04/27/2010 Metolazone Itching 09/15/2007 Medications Medication Sig Dispensed Refills Start Date End Date Status FOLIC ACID/MULTIVITS-MIN/LUT (CENTRUM SILVER ORAL) Take 1 tablet by mouth once daily. Active cholecalciferol (VITAMIN D3) 1,000 unit tablet Take 1,000 Units by mouth once daily. Active milk of magnesia (MOM) 400 mg/5 mL suspension Take 15-30 mL by mouth once daily. Active lancets 28 gauge misc Test 4 times per day 100 Each 018 Active hospital bedIndications:Non-heal ing surgical wound, subsequent encounter Drive med-air 8 inch low loss mattress and 1/2 rails. Semi-electric bed. Length of need 6 weeks. Bed public relations assistant:no 1 unit 018 Active acetaminophen (TYLENOL EXTRA STRGTH) 500 mg tabletIndications:fever ,pain Take 1,000 mg by mouth three times daily. Max acetaminophen dose: 4000mg in 24 hrs. Active sodium chloride (AYR SALINE NASL) Inhale 2-3 Sprays in the nostril(s) once daily if needed. 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 SenSura Kamran Click Ostomy Barrier with belt tabs 60mm, Cut-to-Fit 01/16 - 2 11/18. Item #[id number]. 1 Each 11 021 Active furosemide (LASIX) [...] by mouth two times daily with meals. Active fluticasone (50 mcg per actuation) nasal solution (FLONASE) Inhale 2 Sprays into affected nostril(s) once daily if needed for Rhinitis. Active Procedural Tray trayIndications:Neuroge halina bladder As directed. Irrigation tray with Piston Syringe for flushing supra pubic catheter daily 12 Each 023 Active ARIPiprazole (ABILIFY) 2 mg tabletIndications:Delus [...] A DAY 180 Tablet 2 023 Active DULoxetine (CYMBALTA) 60 mg Delayed-release [...] once daily. 90 Tablet 3 024 Active gabapentin (NEURONTIN) 400 mg capsuleIndications:Gay re back pain TAKE 1 CAPSULE THREE TIMES A DAY 270 Capsule 024 Active donepeziL (ARICEPT) 5 mg tabletIndications:Confu hailey TAKE 1 TABLET AT BEDTIME 90 Tablet 024 Active Sodium hypochlorite (Dakin's Solution) 0.25 % solnIndications:Pressur e injury of left buttock, stage 4 (HC) APPLY 10MIN SOAK TO WOUND BED 473 mL 024 Active buPROPion (WELLBUTRIN SR) 150 mg Sustained-Release tabletIndications:Depre ssive disorder TAKE 1 TABLET TWICE A DAY 180 Tablet 1 024 Active oxyCODONE 10 mg tabletIndications:Chron ic pain syndrome Take 1 Tablet (10 mg) by mouth every 6 hours. 120 Tablet 024 Active amoxicillin-clavulanate 875-125 mg tablet (AUGMENTIN)Indications: lower respiratory infection Take 1 Tablet by mouth two times daily with meals for 7 days. 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),Anticoagulation monitoring, INR range 2-3,Anticoagulation monitoring, INR range 2-3,SDH (subdural hematoma) (HC) Take by mouth 5 mg every Wed; 7.5 mg all other days in the evening OR as directed 024 2023 Discontinued(O ther - add note to specify (E-cancel not sent)) warfarin (COUMADIN) 5 mg tabletIndications: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),Anticoagulation monitoring, INR range 2-3,Anticoagulation monitoring, INR range 2-3,SDH (subdural hematoma) (HC) Take by mouth 5 mg every Wed; 7.5 mg all other days in the evening OR as directed 024 2023 Discontinued warfarin (COUMADIN) 5 mg tabletIndications: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),Anticoagulation monitoring, INR range 2-3,SDH (subdural hematoma) (HC) Take by mouth 5 mg (5 mg x 1) every Wed; 7.5 mg (7.5 mg x 1) all other days 20 Tablet 024 2023 Discontinued(O ther - add note to specify (E-cancel not sent)) warfarin (COUMADIN) 7.5 mg tabletIndications: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),Anticoagulation monitoring, INR range 2-3,Anticoagulation monitoring, INR range 2-3,SDH (subdural hematoma) (HC) Take by mouth 5 mg (5 mg x 1) every Wed, [place], Sat; 7.5 mg (7.5 mg x 1) all other days in the evening OR as directed 024 2023 Discontinued(R eorder (E-cancel not sent)) warfarin (COUMADIN) 5 mg tabletIndications: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),Anticoagulation monitoring, INR range 2-3,SDH (subdural hematoma) (HC) Take by mouth 5 mg (5 mg x 1) every Wed, [place], Sat; 7.5 mg (7.5 mg x 1) all other days all other days 024 2023 Discontinued(R eorder (E-cancel not sent)) Active Problems Problem Noted Date Diagnosed Date Deep tissue injury 02/16/2024 Deep tissue injury 02/16/2024 Sepsis 02/14/2024 Suprapubic catheter 11/21/2023 Delusions of parasitosis 11/21/2023 Opioid dependence, uncomplicated 11/21/2023 Osteomyelitis, unspecified site, unspecified typ e 11/21/2023 Stage 4 pressure ulcer 10/22/2023 Peripheral neuropathy 06/24/202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 10/12/2021 Chronic obstructive pulmonary disease 10/12/2021 Serratia marcescens infection 10/05/2021 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 Other constipation 10/04/2021 Chronic pain syndrome 10/04/2021 Normochromic anemia 08/25/2020 SVT (supraventricular tachycardia) 07/07/2020 Overview: status post ablation 07/06/2020 Deep tissue injury 04/18/2020 Overview: Left lower back MRSA infection 04/08/2020 Pressure injury of right buttock, stage 1 2018 Complicated UTI (urinary tract infection) 2018 Type 2 diabetes mellitus wit h complication, with long-term current use of insulin 01/18/2019 Major depressive disorder, recurrent episode, mo derate 01/18/2019 right ischial area pressure ulcer, stage 4 09/08 Overview: Flap repair to right ischial stage 4 pressure ulcer 08/[address] Perez Anxiety and depression 01/15/2018 History of DVT (deep vein thrombosis) 01/15/2018 Urinary tract infection asso ciated with indwelling [...] Problem Noted Date Diagnosed Date Resolved Date Soft tissue infection 10/22/20232023 care home current use of anticoagulant 06/20/2023 01/08/2024 Cellulitis of scrotum 05/08/20232022 UTI (urinary tract infection) 05/08/2023 06/20/2023 Quadriplegia, unspecified 10/23/2022 Continuous opioid dependence 07/01/2022 08/20/2022 Urinary tract infection asso ciated with indwelling urethral catheter 10/05/2021 06/20/2023 Hypertensive urgency 10/04/2021 023 Type 2 [facility] use of insulin 01/06/2021 02/14/2024 Acute hyponatremia 08/25/2020 Pressure ulcer, sacrum 05/30/202002/13 Decubitus ulcer of right isc hial area, [...] due to urinary tract infection 05/10/2019 06/20/2023 Major depressive disorder, r ecurrent episode, moderate 04/26/2019 02/14/2024 Hyponatremia 04/09/2019 06/20/2023 Septic encephalopathy 04/09/[address] 04/09/2019 Neck pain 04/09/2019 02/14/2024 Hyperglycemia 01/15/2018 06/20/2023 Stage 4 pressure ulcer, right buttock 01/15/2018 02/13/2018 NSTEMI (non-ST elevated myoc ardial infarction) 01/14/2018 02/14/2024 Diabetes mellitus with hyperglycemia 01/14/2018 01/15/2018 Hypotension 01/14/2018 01/15/2018 CAROLEE (acute kidney injury) 01/14/2018 Chronic pain syndrome 12/06/20172023 Hypotension 05/01/2017 01/15/2018 Sepsis 05/01/2017 01/15/2018 Surgical [...] Encounters Date Type Department Care Team Description 02/24/2024 Patient Outreach [facility] Care Management - Advanced Care Team [address] [place] [address] Archana Wright RN Complex Care Management (ACO outreach engagement ) 02/24/[address] [phone] Franklin Squires MD Form (Physician Orders. Medication order: Lorazapam 0.5 mg; oral tablet. Amoxicillin- clavulanate 875mg) 02/24/[address] [phone] Franklin Squires MD Refill Request (LORazepam (ATIVAN) 0.5 mg tab) 02/20/2024 1:30 PM CDT Office Visit [address] [phone] Franklin Squires MD [facility] F/U (02/15/24) 02/20/2024 Anticoagulation (warfarin) [address] [phone] 1, [facility] Anticoagulation 02/20/2024 Travel 02/18/2024 Anticoagulation (warfarin) [address] [phone] 1, [facility] Anticoagulation (acelis) 02/18/[address] [facility] [address] [place] [address] Archana Stein, RN Primary RN Care Management (Hospital DC:02/17/24/LACE:47/Pne shyla); Hospital F/U 02/17/[address] [facility] [address] [place] [address] Franklin Squires MD Form (Service Order: Hold. Acute care hospitalization for pneumonia. Hold [facility] services pending discharge plans. Effective: 02/15/2024) 02/15/2024 4:34 PM CDT - 02/17/2024 2:45 PM CDT Hospital Encounter [facility] [address] [facility] [place] [address] [facility] [place] Oz[facility] Coy Alireza, MD Pneumonia due to infectious organism, unspecified laterality, unspecified part of lung (Primary Dx); History of DVT (deep vein thrombosis); Pressure injury of right buttock, stage 1 Discharge Disposition: Home Self Care 02/15/2024 Travel 02/15/[address] [facility] [address] [place] [address] [place] [address] [facility] Refill Request (Warfarin) 02/14/2024 3:10 PM CDT - 02/15/2024 2:45 PM CDT Hospital Encounter [facility] [address] [place] [address] Quan Corbett, ROXY Ramírez, MD Terence Bruno, Todd Glass, George Michael, Malini Nayak NP Leukocytosis, unspecified type (Primary Dx); Fever, unspecified fever cause; Chills; Tachycardia; Pulmonary infiltrate; Elevated C-reactive protein (CRP); Pressure injury of deep tissue of left buttock Discharge Disposition: Critical Access Hospital 02/14/2024 Travel 02/05/2024 Anticoagulation (warfarin) [address] [phone] 1, [facility] Anticoagulation (Acelis) 01/28/[address] [phone] Franklin Squires MD Refill Request (Oxycodone) 01/22/[address] [phone] Franklin Squires MD Form (Standard Written Order: Rehab Accessories./Cushion, Quadtro Select HI PRO 20x20 or 11x11 Cell) 01/22/[address] [phone] Franklin Squires MD Form (Standard Written Order: Repairs/Battery, M34 Gel 60AH C300 60 AMP Hours use 8AMP Assembler Adjuster) 01/22/2024 Anticoagulation (warfarin) [address] [phone] 1, [facility] Anticoagulation (Acelis) 01/16/[address] [phone] Franklin Squires MD Refill Request (Bupropion) 01/09/[address] [phone] Franklin Squires MD Form (Home Health Certification and Plan of Care.) 01/08/[address] [phone] Franklin Squires MD Form ([facility] Care 60 Day Summary Report) 01/08/2024 Anticoagulation (warfarin) [address] [phone] 1, [facility] Anticoagulation (acelis) 01/01/2024 Anticoagulation (warfarin) [address] [place] [address] 1, [facility] Anticoagulation (Acelis) 12/29/[address] [place] [address] Franklin Squires MD Refill Request (Oxycodone) 12/26/[address] [place] [address] Franklin Squires MD Form 12/26/[address] [place] [address] Franklin Squires MD Anticoagulation (Question/review) 12/25/2023 Anticoagulation (warfarin) [address] [place] [address] 1, [facility] Anticoagulation (Acelis) 12/19/2023 1:50 PM DISTRICT MANAGER PRIMARY CARE SALES Office Visit [address] [place] [phone] Franklin Squires MD Recheck 12/19/[address] [place] [address] Franklin Squires MD Refill Request (Dakin's Solution) 12/19/2023 Travel 12/18/2023 Anticoagulation (warfarin) [address] [place] [address] 1, [facility] Anticoagulation (Acelis) 12/16/[address] [place] [address] Franklin Squires MD Refill Request (Dakins 1/2 strength 0.25 soln) 12/13/[address] [place] [address] Franklin Squires MD Form 12/12/[address] [place] [address] Franklin Squires MD Refill Request (Gabapentin, Donepezil) 12/10/2023 Anticoagulation (warfarin) [address] [place] [address] 1, [facility] Anticoagulation (Acelis) 12/05/[address] [place] [address] Franklin Squires MD Form 12/03/2023 Anticoagulation (warfarin) [address] [place] [address] 1, [facility] Anticoagulation (acelis) 11/28/[address] [place] [address] Franklin Squires MD Refill Request (Oxycodone) 11/28/[address] [place] [address] Franklin Squires MD Form 11/28/[address] [place] [address] Franklin Squires MD Questions (TAJIK) 11/26/2023 Anticoagulation (warfarin) [address] [place] [phone] 1, [facility] Anticoagulation (Acelis) from Last 3 Months Immunizations Name Administration Dates Next Due COVID-19 vaccine (TrutapBio NTMobui 30mcg/0.3mL) 12YO+ BIVALENT PF, MDV 10/22/2022 COVID-19 vaccine (InnSania NTMobui 30mcg/0.3mL) PF, MDV 01/25/2021,01/02/2021 Influenza A (H1N1), Inactiva argenis (Age >=3 Years) 11/30/2009 Influenza Virus, Unspecified 10/11/2022,09/03/20 21 Influenza, High-dose Inactivated 08/21/2016,08/11,08/21/2014 Influenza, IIV3 (Age [...] Reading Time Taken Comments Blood Pressure 120/70 02/20/2024 1:31 PM CDT Pulse 84 02/20/2024 1:31 PM CDT Temperature 36.7 ??C (98 ??F) 02/20/2024 1:31 PM CDT Respiratory Rate 18 02/17/2024 11:38 AM CDT Oxygen Saturation 96% 02/20/2024 1:46 PM CDT Inhaled Oxygen Concentration - - Weight 104.8 kg (231 lb) 02/20/2024 1:31 PM CDT Height 175.3 cm (5' 9) 02/17/2024 4:00 AM CDT Body Mass Index 34.11 02/17/2024 4:00 AM CDT Plan of Treatment Health Maintenance Due Date Last Done Comments Hepatitis C screening for ag e 18-79 1963 Zoster (shingles) series for age 50+ (2 of 3) 01/11/2016 11/16/2015, 03/23/2013 Medicare Wellness for age 65+ 02/07/2018 02/06/2017, 10/19/2015 COVID-19 vaccine series ( season) 2023 10/22/2022, 08/06/2021, 01/25/2021, Additional history exists Influenza for age 65+ 07/12/2024 10/22/2022 , 10/11/2022, 09/03/2021, Additional history exists Depression screening for age 12+ 12/19/2024 12/19/2023, 12/19/2023, 06/29/2022, Additional history exists Tetanus booster 05/28/2032 05/28/2022, 06/28/2011 Tdap Completed 06/28/2011 Pneumococcal series for age 65+ Completed 10/19/2015, 08/13/2011, 10/06/2009, Additional history exists Procedures Procedure Name Priority Date/Time Associated Diagnosis Comments POTASSIUM Routine 02/20/2024 2:15 PM CDT 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) Hypokalemia PROTIME-INR STAT 02/20/2024 2:15 PM CDT 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) Anticoagulation monitoring, INR range 2-3 HOME MONITOR AC Routine 02/18/2024 12:00 AM CDT MAGNESIUM JORGE LUIS 02/17/2024 5:11 AM CDT CBC WITH AUTO DIFFERENTIAL Early AM 02/17/2024 5:11 AM CDT CREATININE Early AM 02/17/2024 5:11 AM CDT POTASSIUM Early AM 02/17/2024 5:11 AM CDT SODIUM Early AM 02/17/2024 5:11 AM CDT CBC WITH AUTO DIFFERENTIAL Early AM 02/17/2024 5:11 AM CDT PROTIME-INR Early AM 02/17/2024 5:11 AM CDT GLUCOSE METER Timed 02/16/2024 11:41 AM CDT PROTIME-INR Early AM 02/16/2024 4:56 AM CDT GLUCOSE METER Routine 02/15/2024 1:17 PM CDT LEGIONELLA AND PNEUMOCOCCAL URINE ANTIGEN Today 02/15/2024 10:25 AM CDT GLUCOSE METER Routine 02/15/2024 8:44 AM CDT PROTIME-INR Early AM 02/15/2024 5:54 AM CDT WHITE BLOOD COUNT Early AM 02/15/2024 5:5 4 AM CDT GLUCOSE METER Routine 02/15/2024 5:15 AM CDT GLUCOSE METER Routine 02/14/2024 11:[address] ABDOMEN PELVIS WO STAT 02/14/2024 8:12 PM CDT TROPONIN T (HS) ONE TIME Timed 02/14/2024 7:49 PM CDT TROPONIN T (HS) ACUTE W/2HR REFLEX STAT 02/14/2024 5:35 PM CDT URINE CULTURE JORGE LUIS 02/14/2024 5:07 PM CDT URINALYSIS MICROSCOPIC STAT 02/14/2024 5:07 PM CDT UA W/ SEDIMENT EXAM REFLEXED PER CRITERIA STAT 02/14/2024 5:07 PM CDT XR CHEST 1 VIEW PORTABLE STAT 02/14/2024 4:46 PM CDT GLUCOSE METER Routine 02/14/2024 4:00 PM CDT BLOOD CULTURE Today 02/14/2024 3:58 PM CDT PROCALCITONIN STAT 02/14/2024 3:50 PM CDT C-REACTIVE PROTEIN JORGE LUIS 02/14/2024 3: 50 PM CDT CBC WITH AUTO DIFFERENTIAL STAT 02/14/2024 3:50 PM CDT LACTATE VENOUS Today 02/14/2024 3:50 PM CDT BLOOD CULTURE Today 02/14/2024 3:50 PM CDT TROPONIN T (HS) ONE TIME STAT 02/14/2024 3:50 PM CDT PROTIME-INR STAT 02/14/2024 3:50 PM CDT COMP METABOLIC PANEL STAT 02/14/2024 3:50 PM CDT CBC WITH AUTO DIFFERENTIAL STAT 02/14/2024 3:50 PM CDT HOME MONITOR AC Routine 02/05/2024 12:00 AM CDT HOME MONITOR AC Routine 01/22/2024 12:00 AM CDT HOME MONITOR AC Routine 01/08/2024 12:00 AM DISTRICT MANAGER PRIMARY CARE SALES HOME MONITOR AC Routine 01/01/2024 12:00 AM DISTRICT MANAGER PRIMARY CARE SALES HOME MONITOR AC Routine 12/25/2023 12:00 AM DISTRICT MANAGER PRIMARY CARE SALES HOME MONITOR AC Routine 12/18/2023 12:00 AM DISTRICT MANAGER PRIMARY CARE SALES HOME MONITOR AC Routine 12/10/2023 12:00 AM DISTRICT MANAGER PRIMARY CARE SALES HOME MONITOR AC Routine 12/03/2023 12:00 AM DISTRICT MANAGER PRIMARY CARE SALES HOME MONITOR AC Routine 11/26/2023 12:00 AM DISTRICT MANAGER PRIMARY CARE SALES from Last 3 Months Results * POTASSIUM (02/20/2024 2:15 PM CDT) Only the most recent of2 resultswithin the time period is included. [facility] POTASSIUM 4.3 3.5 - 5.1 mmol/L 02/20/2024 4:02 PM CDT [facility] Blood BLOOD SPECIMEN / Unknown Venipuncture / Unknown 02/20/2024 2:15 PM CDT 02/20/2024 3:06 PM CDT Franklin Squires MD CHEMISTRY Performing Organization Address [facility] de Phone Number [facility] [address] [place] [address] * (ABNORMAL) PROTIME-INR (02/20/2024 2:15 PM CDT) Only the most recent of5 resultswithin the time period is included. INR 1.9(H) <1.3 02/20/2024 2:38 PM CDT [facility] PROTIME 21.2(H) 10.3 - 12.3 sec 02/20/2024 2:38 PM CDT [facility] Blood BLOOD SPECIMEN / Unknown Venipuncture / Unknown 02/20/2024 2:15 PM CDT 02/20/2024 2:15 PM CDT Narrative [facility] - 02/20/2024 2:38 PM CDT ?Therapeutic Range 2.0-3.0 for most anticoagulated patients [...] Franklin Squires MD HEMATOLOGY Performing Organization Address [facility] Co de Phone Number [facility] [address] [place] [address] * HOME MONITOR AC (02/18/2024 12:00 AM CDT) Only the most recent of10 resultswithin the time period is included. PATIENT REPORTED HOME INR 2.2 2.00 - 3.00 ALERE HOME MONITORING 02/18/2024 Franklin Squires MD OTHER [facility] [address] [place] [address] * (ABNORMAL) CBC WITH AUTO DIFFERENTIAL (02/17/2024 5:11 AM [facility]) Only the most recent of2 resultswithin the time period is included. WHITE BLOOD COUNT 7.0 4.5 - 11.0 thou/cu mm 02/17/2024 5:49 AM [facility] RED BLOOD COUNT 4.22(L) 4.30 - 5.90 mil/cu mm 02/17/2024 5:49 AM [facility] HEMOGLOBIN 10.9(L) 13.5 - 17.5 g/dL 02/17/2024 5:49 AM [facility] HEMATOCRIT 33.8(L) 37.0 - 53.0 % 02/17/2024 5:49 AM [facility] MCV 80 80 - 100 fL 02/17/2024 5:49 AM [facility] MCH 25.8(L) 26.0 - 34.0 pg 02/17/2024 5:49 AM [facility] MCHC 32.2 32.0 - 36.0 g/dL 02/17/2024 5:49 AM [facility] RDW 15.9(H) 11.5 - 15.5 % 02/17/2024 5:49 AM [facility] PLATELET COUNT 239 140 - 440 thou/cu mm 02/17/2024 5:49 AM [facility] MPV 9.6 6.5 - 11.0 fL 02/17/2024 5:49 AM [facility] NRBC 0.0 % 02/17/2024 5:49 AM [facility] ABS NRBC 0.0 thou /cu mm 02/17/2024 5:49 AM [facility] % NEUT 54.3 % 02/17/2024 5:49 AM [facility] % LYMPH 27.2 % 02/17/2024 5:49 AM [facility] % MONO 11.7 % 02/17/2024 5:49 AM [facility] % EOS 5.7 % 02/17/2024 5:49 AM [facility] % BASO 0.7 % 02/17/2024 5:49 AM [facility] % IMMATURE GRAN (METAS,MYELOS,ND OS) 0.4 % 02/17/2024 5:49 AM [facility] ABSOLUTE NEUTROPHILS 3.8 1.7 - 7.0 thou/cu mm 02/17/2024 5:49 AM [facility] ABSOLUTE LYMPHOCYTES 1.9 0.9 - 2.9 thou/cu mm 02/17/2024 5:49 AM [facility] ABSOLUTE MONOCYTES 0.8 <0.9 thou/cu mm 02/17/2024 5:49 AM [facility] ABSOLUTE EOSINOPHILS 0.4 <0.5 thou/cu mm 02/17/2024 5:49 AM [facility] ABSOLUTE BASOPHILS 0.1 <0.3 thou/cu mm 02/17/2024 5:49 AM [facility] ABSOLUTE IMMATURE GRANULOCYTES(MET ,MYELOS,PROS) 0.0 <0.3 thou/cu mm 02/17/2024 5:49 AM [facility] Blood BLOOD SPECIMEN / Unknown Butterfly / Unknown 02/17/2024 5:11 AM CDT 02/17/2024 5:45 AM CDT John Ludwig MD HEMATOLOGY [facility] [place]NAL ZIP [address] [address] [place] [address] * SODIUM (02/17/2024 5:11 AM CDT) SODIUM 140 136 - 145 mmol/L 02/17/2024 6:14 AM T [facility] Blood BLOOD SPECIMEN / Unknown Butterfly / Unknown 02/17/2024 5:11 AM CDT 02/17/2024 5:44 AM CDT John Ludwig MD CHEMISTRY [facility] INTERNAL ZIP [address] [address] [place] [address] * (ABNORMAL) CREATININE (02/17/2024 5:11 AM CDT) eGFR >90 >90 mL/min/1.7 3m2 02/17/2024 6:14 AM CDT [facility] Comment:As of 2022, eG FR is calculated by the CKD-EPI creatinine equation without race adjustment. ??eGFR can be influenced by muscle mass, exercise, and diet. ??The reported eGFR is an estimation only and is only applicable if the renal function is stable. CREATININE 0.56(L) 0.70 - 1.20 mg/dL 02/17/2024 6:14 AM CDT [facility] Blood BLOOD SPECIMEN / Unknown Butterfly / Unknown 02/17/2024 5:11 AM CDT 02/17/2024 5:44 AM CDT John Ludwig MD CHEMISTRY Performing Organization Address City/[facility]/ZIP Co de Phone Number [facility] INTERNAL ZIP [phone] [place] [address] * MAGNESIUM (02/17/2024 5:11 AM CDT) MAGNESIUM 2.0 1.6 - 2.4 mg/dL 02/17/2024 7:44 AM CDT [facility] Blood BLOOD SPECIMEN / Unknown Butterfly / Unknown 02/17/2024 5:11 AM CDT 02/17/2024 5:44 AM CDT John Ludwig MD CHEMISTRY [facility] [place]NAL ZIP [address] [address] [place] [address] * (ABNORMAL) GLUCOSE METER (02/16/2024 11:41 AM CDT) Only the most recent of6 resultswithin the time period is included. GLUCOSE METER 129(H) 65 - 100 mg/dL 02/16/2024 12:02 PM CDT [facility] Blood BLOOD SPECIMEN / Unknown 02/16/2024 11:41 AM CDT 02/16/2024 12:02 PM CDT John Ludwig MD CHEMISTRY [facility] INTERNAL ZIP [phone] [place] [address] * LEGIONELLA AND PNEUMOCOCCAL URINE ANTIGEN (02/15/2024 10:25 AM CDT) Pathologist [facility] STREP PNEUMO ANTIGEN Negative 02/15/2024 3:46 PM CDT [facility] Comment:Presumptive negative for pneumococcal pneumonia, suggesting no current or recent pneumococcal infection. Infection due to S. pneumoniae cannot be ruled out since the antigen present in the sample may be below the detection limit of the test. LEGIONELLA ANTIGEN Negative 02/15/2024 3:46 PM CDT [facility] Comment:Negative for L.pneum ophila serogroup 1 antigen, suggesting no recent or current infection. Infection due to Legionella cannot be ruled out since other serogroups and species may cause disease, antigen may not be present in urine in early infection, and the level of antigen present may be below the detection limit of the test. Low test sensitivity in patients with mild pneumonia. Urine URINE SPECIMEN / Unknown Non-Blood / Unknown 02/15/2024 10:25 AM CDT 02/15/2024 10:30 AM CDT James Ramírez MD [facility]CROBIOLOGY [facility] [address] [place] [address], * (ABNORMAL) WHITE BLOOD COUNT (02/15/2024 5:54 AM CDT) WHITE BLOOD COUNT 11.7(H) 4.5 - 11.0 thou/cu mm 02/15/2024 7:16 AM CDT [facility] Blood BLOOD SPECIMEN / Unknown Venipuncture / Unknown 02/15/2024 5:54 AM CDT 02/15/2024 7:09 AM CDT James Ramírez MD HEMATOLOGY [facility] [address] [place] [address] * CT ABDOMEN PELVIS WO (02/14/2024 8:12 PM CDT) Anatomical Region Laterality Modality Abdomen, Pelvis, AORTA, LIVER, SPLEEN Computed Tomography 02/14/2024 8:54 PM CDT Impressions 02/14/2024 8:54 PM CDT 1. Right lower lobe pulmonary infiltrates consistent with pneumonia. 2. 6 cm area of inflamed soft tissue and central gas in the left buttock. No kim abscess. No osteomyelitis. Please note that all CT scans at this facility use dose modulation, iterative reconstruction, and/or weight-based dosing when appropriate to reduce radiation dose to as low as reasonably achievable. Dictated by Clifton Fischer MD @ 02/14/2024 8:54:47 PM (Electronically Signed) Narrative 02/14/2024 8:54 PM CDT For Patients: ??As a result of the Century Cures Act, medical imaging exams and procedure reports are released immediately into your electronic medical record. ??You may view this report before your referring provider. ??If you have questions, please contact your health care provider. INDICATION: Chronic left buttock wound. Possible osteomyelitis. TECHNIQUE: CT abdomen and pelvis without contrast. COMPARISON: 2023. FINDINGS: Lower chest: Small right lower lobe pulmonary infiltrates. Liver: Normal in size and attenuation. No suspicious masses. Gallbladder and bile ducts: Multiple small gallbladder stones. Otherwise unremarkable. Pancreas: Unremarkable. No mass or inflammation. Spleen: Normal in size. No masses. Adrenal glands: Normal in size. No nodules. Kidneys: Normal in size. No suspicious masses, stones, or hydronephrosis. GI tract: Left ventral ostomy is present. GI tract otherwise within normal limits in caliber and appearance. Vasculature: IVC filter is present. Abdominal aorta normal in caliber. Lymph nodes: No lymphadenopathy. Peritoneum/Abdominal Wall: Unremarkable. No sign of mass or infiltration. No free air or significant free fluid. Pelvis: A 6 cm area of dense soft tissue inflammation with central air present in the left buttock visualized on series 2, image 158. No fluid collection to suggest abscess. Bones: No sign of osteomyelitis. Procedure Note Clifton Fischer MD - 02/14/2024 For Patients: As a result of the Cures Act, medical imagingexams and procedure reports are released immediately into your electronicmedical record. You may view this report before your referring provider.If you have questions, please contact your health care provider. INDICATION: Chronic left buttock wound. Possible osteomyelitis. TECHNIQUE: CT abdomen and pelvis without contrast. COMPARISON: 2023. FINDINGS: Lower chest: Small right lower lobe pulmonary infiltrates. Liver: Normal in size and attenuation. No suspicious masses. Gallbladder and bile ducts: Multiple small gallbladder stones. Otherwiseunremarkable. Pancreas: Unremarkable. No mass or inflammation. Spleen: Normal in size. No masses. Adrenal glands: Normal in size. No nodules. Kidneys: Normal in size. No suspicious masses, stones, or hydronephrosis. GI tract: Left ventral ostomy is present. GI tract otherwise within normallimits in caliber and appearance. Vasculature: IVC filter is present. Abdominal aorta normal in caliber. Lymph nodes: No lymphadenopathy. Peritoneum/Abdominal Wall: Unremarkable. No sign of mass or infiltration.No free air or significant free fluid. Pelvis: A 6 cm area of dense soft tissue inflammation with central airpresent in the left buttock visualized on series 2, image 158. No fluidcollection to suggest abscess. Bones: No sign of osteomyelitis. IMPRESSION: 1. Right lower lobe pulmonary infiltrates consistent with pneumonia. 2. 6 cm area of inflamed soft tissue and central gas in the left buttock.No kim abscess. No osteomyelitis. Please note that all CT scans at this facility use dose modulation,iterative reconstruction, and/or weight-based dosing when appropriate toreduce radiation dose to as low as reasonably achievable. Dictated by Clifton Fischer MD @ 02/14/2024 8:54:47 PM (Electronically Signed) Quan RAMSEY CT * (ABNORMAL) TROPONIN T (HS) ONE TIME (02/14/2024 7:49 PM CDT) Only the most recent of2 resultswithin the time period is included. TROPONIN T HS 35(H) 6-15 ng/L ng/L 02/14/2024 8:12 PM CDT [facility] Blood BLOOD SPECIMEN / Unknown Venipuncture / Unknown 02/14/2024 7:49 PM CDT 02/14/2024 7:53 PM CDT Quan RAMSEY CHEMISTRY Performing Organization Address City/State/[facility] Co de Phone Number [facility] [address] [place] [address] * (ABNORMAL) TROPONIN T (HS) ACUTE W/2HR REFLEX (02/14/2024 5:35 PM CDT) TROPONIN T HS 33(H) 6-15 ng/L ng/L 02/14/2024 6:42 PM CDT [facility] Blood BLOOD SPECIMEN / Unknown Venipuncture / Unknown 02/14/2024 5:35 PM CDT 02/14/2024 5:38 PM CDT Narrative [facility] - 02/14/2024 6:42 PM CDT hs-cTnT (Elecsys Troponin T Gen 5) concentration (s) above the sex-specific 99th percentile (16 ng/L or greater for males or 11 ng/L or greater for females) are indicative of myocardial injury. If initial hs-cTnT <=100 ng/L at presentation, a 0h/2h ABSOLUTE (ng/L) delta change (rising or falling) of >=10 ng/L suggests a significant change, whereas a 0h/2h delta change <=3 ng/L suggests no significant change. If initial hs-cTnT >100 ng/L at presentation, a 0h/2h/ RELATIVE (percent, %) delta change of 20% is suggested to distinguish patients with acute vs. chronic myocardial injury. There are multiple etiologies that can cause hs-cTnT increases above the 99th percentile (myocardial injury) other than acute myocardial infarction. Clinical context and careful clinical evaluation are critical for diagnosis and risk-stratification. The diagnosis of acute myocardial infarction requires a rising and/or falling pattern in hs-cTnT concentrations with at least one value above the sex-specific 99th percentile PLUS at least one of the following clinical criteria: ischemic symptoms, new or presumed new significant ST-T wave changes or new LBBB, development of pathological Q waves, imaging evidence of new loss of viable myocardium or new regional wall motion abnormality, or identification of intracoronary atherothrombosis or an acute angiographic culprit on coronary angiography. In appropriate low-risk patients with a non-ischemic electrocardiogram without active chest pain with a symptom onset >3-hours without recurrence, a single initial hs-cTnT<6 ng/L identifies patient with a very low risk in emergency department patient population. Quan RAMSEY CHEMISTRY Performing Organization Address [facility] de Phone Number [facility] [address] [place] [address] * (ABNORMAL) URINALYSIS MICROSCOPIC (02/14/2024 5:07 PM CDT) RBC None Seen 0-2, None Seen /HPF 02/14/2024 6:44 PM CDT [facility] WBC 0-2 0-2, 3-5, None Seen /HPF 02/14/2024 6:44 PM CDT [facility] BACTERIA Moderate(A ) None Seen, Rare, Few Bacteria/ HPF 02/14/2024 6:44 PM CDT [facility] EPITHELIAL CELLS Few None Seen, Few Epi/HPF 02/14/2024 6:44 PM CDT [facility] Urine URINE SPECIMEN / Unknown Non-Blood / Unknown 02/14/2024 5:07 PM CDT 02/14/2024 5:28 PM CDT Quan RAMSEY URINE Performing Organization Address [facility] Co de Phone Number [facility] [address] [place] [address] * Urine culture - clean catch ADD ON (02/14/2024 5:07 PM CDT) CULTURE No growth (<1,000 CFU/mL) 02/16/2024 12:54 PM CDT [facility] Urine URINE SPECIMEN / Unknown Non-Blood / Unknown 02/14/2024 5:07 PM CDT 02/14/2024 5:28 PM CDT James Ramírez MD MICROBIOLOGY [facility] [address] [place] [address], * (ABNORMAL) UA W/ SEDIMENT EXAM REFLEXED PER CRITERIA (02/14/2024 5:07 PM CDT) COLOR Yellow Yellow Color 02/14/2024 5:44 PM CDT [facility] CLARITY Clear Clear Clarity 02/14/2024 5:44 PM T [facility] SPECIFIC GRAVITY,URINE <=1.005(A) 1.010, 1.015, 1.020, 1.025 02/14/2024 5:44 PM [facility] PH,URINE 6.0 6.0, 7.0, 8.0, 5.5, 6.5, 7.5, 8.5 02/14/2024 5:44 PM [facility] UROBILINOGEN, QUALITATIVE Normal Normal EU/dl 02/14/2024 5:44 PM [facility] PROTEIN, URINE Negative Negative mg/dL 02/14/2024 5:44 PM [facility] GLUCOSE, URINE Negative Negative mg/dL 02/14/2024 5:44 PM [facility] KETONES,URINE Negative Negative mg/dL 02/14/2024 5:44 PM [facility] BILIRUBIN,URI NE Negative Negative 02/14/2024 5:44 PM [facility] OCCULT BLOOD,URINE Negative Negative 02/14/2024 5:44 PM CDT [facility] NITRITE Positive(A) Negative 02/14/2024 5:44 PM CDT [facility] LEUKOCYTE ESTERASE Negative Negative 02/14/2024 5:44 PM CDT [facility] Urine URINE SPECIMEN / Unknown Non-Blood / Unknown 02/14/2024 5:07 PM CDT 02/14/2024 5:28 PM CDT Quan RAMSEY URINE [facility] [address] [place] [address] * XR CHEST 1 VIEW PORTABLE (02/14/2024 4:46 PM CDT) Anatomical Region Laterality Modality HEART, THORAX, CHEST Digital Rad iography 02/14/2024 5:27 PM CDT Narrative 02/14/2024 5:27 PM CDT For Patients: ??As a result of the Cures Act, medical imaging exams and procedure reports are released immediately into your electronic medical record. ??You may view this report before your referring provider. ??If you have questions, please contact your health care provider. Indication: Sepsis Technique: AP view of the chest. Comparison: 10/25/2023 Findings: Low lung volumes. Normal cardiomediastinal silhouette. Mild patchy right mid lung and left lower lobe opacities. No pleural effusion or visualized pneumothorax. Impression: Mild patchy right mid lung and left lower lobe opacities may represent infection. Dictated by Gurinder Chambers MD @ 02/14/2024 5:27:43 PM (Electronically Signed) Procedure Note Ricardo Chambers MD - 02/14/2024 For Patients: As a result of the Cures Act, medical imagingexams and procedure reports are released immediately into your electronicmedical record. You may view this report before your referring provider.If you have questions, please contact your health care provider. Indication: Sepsis Technique: AP view of the chest. Comparison: 10/25/2023 Findings: Low lung volumes. Normal cardiomediastinal silhouette. Mild patchy right mid lung and left lower lobe opacities. No pleural effusion or visualized pneumothorax. Impression: Mild patchy right mid lung and left lower lobe opacities may representinfection. Dictated by Gurinder Chambers MD @ 02/14/2024 5:27:43 PM (Electronically Signed) [facility] * BLOOD CULTURE (02/14/2024 3:58 PM CDT) Only the most recent of2 resultswithin the time period is included. CULTURE No Growth. 02/20/2024 5:27 AM CDT [facility] Blood BLOOD SPECIMEN / Unknown Butterfly / Unknown 02/14/2024 3:58 PM CDT 02/14/2024 4:02 PM CDT Quan RAMSEY MICROBIOLOG Y Performing Organization Address City/[facility]/ZIP Co de Phone Number [facility] [address] [place] [address] * LACTATE VENOUS (02/14/2024 3:50 PM CDT) LACTATE,VENOUS 1.4 0.5 - 2.0 mmol/L 02/14/2024 4:22 PM CDT [facility] Blood BLOOD SPECIMEN / Unknown Butterfly / Unknown 02/14/2024 3:50 PM CDT 02/14/2024 4:02 PM CDT Quan RAMSEY CHEMISTRY Performing Organization Address City/[facility]/ZIP Co de Phone Number [facility] [address] [place] [address] * PROCALCITONIN (02/14/2024 3:50 PM CDT) PROCALCITONIN 0.10 ng/ml 02/14/2024 5:09 PM CDT [facility] Blood BLOOD SPECIMEN / Unknown Butterfly / Unknown 02/14/2024 3:50 PM CDT 02/14/2024 4:39 PM CDT [facility] - 02/14/2024 5:09 PM CDT Procalcitonin for initial assessment of Lower Respiratory Tract Infection: Results Interpretation <0.10 ng/mL Antibiotic therapy strongly discoraged. ??Indicates absent of bacterial infection. * 0.10 - 0.25 ng/mL Antibiotic therapy discouraged. ??Bacterial infection unlikely. * 0.26 - 0.50 ng/mL Antibiotic therapy encouraged. ??Bacterial infection possible. >0.50 ng/mL Antibiotic therapy strongly encouraged. ??Suggestive of presence of bacterial infection. *Antibiotic therapy should be considered regardless of PCT result if the patient is clinically unstable, is at high risk for adverse outcome, has strong evidence of bacterial pathogen, or the clinical context indicates antibiotic therapy is warranted. ??If antibiotics are withheld, reassess if symptoms persist/worsen and/or repeat PCT measurement within 6-24 hours. ? In order to assess treatment success and to support a decision to discontinue antibiotic therapy, follow up samples should be tested once every 1-2 days, based upon physician discretion taking into account patient's evolution and progress. Procalcitonin for initial assessment of severe sepsis risk: Results Interpretation <0.5 ng/ml A PCT level below 0.5 ng/ml on the first day of ICU admission is associated with a low risk for progression to severe sepsis and/or septic shock. > 2.0 ng/mL A PCT level above 2.0 ng/mL on the first day of ICU admission is associated with a high risk for progression to severe sepsis and/or septic shock. Note: Concentrations < 0.5 ng/mL do not exclude an infection, on account of localized infections (without systemic signs) which can be associated with such low concentrations, or a systemic infection in its initial stages(< 6 hours). Furthermore, increased procalcitonin can occur without infection. PCT concentrations between 0.5 and 2.0 ng/mL should be interpreted taking into account the patient's history. It is recommended to retest PCT within 6-24 hours if any concentrations < 2 ng/mL are obtained. Quan RAMSEY SEND OUTS Performing Organization Address City/[facility]/ZIP Co de Phone Number [facility] [address] [place] [address] * (ABNORMAL) C-REACTIVE PROTEIN (02/14/2024 3:50 PM CDT) [facility] C-REACTIVE PROTEIN 10.9(H) <0.5 mg/dL 02/14/2024 5:09 PM T [facility] Blood BLOOD SPECIMEN / Unknown Butterfly / Unknown 02/14/2024 3:50 PM CDT 02/14/2024 4:02 PM CDT Quan RAMSEY CHEMISTRY Performing Organization Address [facility] Co de Phone Number [facility] [address] [place] [address] * (ABNORMAL) COMP METABOLIC PANEL (02/14/2024 3:50 PM CDT) [facility] SODIUM 134(L) 136 - 145 mmol/L 02/14/2024 4:24 PM [facility] POTASSIUM 4.3 3.5 - 5.1 mmol/L 02/14/2024 4:24 PM [facility] CHLORIDE 96(L) 98 - 107 mmol/L 02/14/2024 4:24 PM [facility] CO2,TOTAL 25 22 - 29 mmol/L 02/14/2024 4:24 PM [facility] ANION GAP 13 5 - 18 02/14/2024 4:24 PM [facility] GLUCOSE 118(H) 70 - 99 mg/dL 02/14/2024 4:24 PM [facility] CALCIUM 9.4 8.8 - 10.2 mg/dL 02/14/2024 4:24 PM [facility] BUN 15 8 - 23 mg/dL 02/14/2024 4:24 PM [facility] CREATININE 0.60(L) 0.70 - 1.20 mg/dL 02/14/2024 4:24 PM [facility] BUN/CREAT RATIO 25(H) 10 - 20 4:24 PM T [facility] eGFR >90 >90 mL/min/1.7 3m2 02/14/2024 4:24 PM T [facility] Comment:As of 2022, eG FR is calculated by the CKD-EPI creatinine equation without race adjustment. ??eGFR can be influenced by muscle mass, exercise, and diet. ??The reported eGFR is an estimation only and is only applicable if the renal function is stable. ALBUMIN 4.1 4.0 - 4.9 g/dL 02/14/2024 4:24 PM T [facility] PROTEIN,TOTAL 7.8 6.0 - 8.0 g/dL 02/14/2024 4:24 PM [facility] BILIRUBIN,TOTAL 0.6 0.0 - 1.2 mg/dL 02/14/2024 4:24 PM [facility] ALK PHOSPHATASE 117 40 - 129 IU/L 02/14/2024 4:24 PM [facility] ALT (SGPT) 47 10 - 50 IU/L 02/14/2024 4:24 PM [facility] AST (SGOT) 42 10 - 50 IU/L 02/14/2024 4:24 PM [facility] Blood BLOOD SPECIMEN / Unknown Butterfly / Unknown 02/14/2024 3:50 PM CDT 02/14/2024 4:02 PM CDT Quan RAMSEY CHEMISTRY [facility] [address] [place] [address] from Last 3 Months Additional Health Concerns [...] 12 months since positive culture): resides in acute/extermination supervisor care, receiving hemodialysis, has chronic open wounds/skin damage, has long-term percutaneous indwelling medical devices Exclusions for nares collection (if <12 months since positive culture) include all of the previous exclusions plus patients on antibiotics 7 days prior to collection 03/13/2018 2023 Advance Directives Documents on File Type Date Recorded Patient Training And Development Assistant Expl anation Healthcare Directive 05/09/2023 023 Healthcare Directive 05/09/2023 023 POLST 05/01/2017 12:00 AM * Full Code (Latest Code Status on File) Date Activated Date Inactivated Comments 02/15/2024 5:52 PM 02/17/2024 5:08 PM Question Answer Comments Code Status Discussion: Reviewed Preferences * Full Code Date Activated Date Inactivated Comments 02/14/2024 8:31 PM 02/15/2024 4:35 PM Question Answer Comments Code Status Discussion: Reviewed Preferences * Full Code Date Activated Date Inactivated Comments 06/20/2023 10:17 PM 06/28/2023 1:56 PM Question Answer Comments Code Status Discussion: Reviewed Preferences * Full Code Date Activated Date Inactivated Comments 05/08/2023 4:16 AM 05/09/2023 3:45 PM Question Answer Comments Code Status Discussion: Reviewed Preferences * Full Code Date Activated Date Inactivated Comments 10/04/2021 5:52 AM 10/05/2021 4:30 PM Question Answer Comments Code Status Discussion: Reviewed Preferences Care Teams Liquefaction Supervisor Relationship Specialty Start Date End Date Franklin Squires MD [address] [facility] [place] [address] PCP - General Family Practice 10/18/15 Zelalem Cohen MD Physical Therapist 03/13/12 May Randle MD Physical Medicine and Rehabilitation 03/13/12 Fred Craft LSW [address] [place] [address] Digital Photo Printer 05/03/17 Diane Charles MD [address] [place] [address] Surgery - Urology 01/17/23 Julia Ware RN [address] [place] [address] Registered Nurse 07/17/23 Mónica Mcdonald, RN [address] [place], [place] [id number] Complex Care Management Registered Nurse 02/24/24
--- OUTSIDE RECORDS SUMMARY | 2024-02-24 12:39 | XMS_ITS | Continuity of Care Document ---
Author Name [facility] Organization [facility] Care Team Providers Care Refuse And Recycling Worker Name Role Phone [facility] Unavailable Unavailable Problems Combined list of problems from 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 It does not include entries that were removed or entered in error. Problem Status Onset Date Problem Type Date of Resolution Comments Source Abnormal liver function Active Condition [facility] Anemia (SCT 853147986) Active Condition [facility] Anxiety ([facility] 45574686) Active Condition [facility] Autonomic dysreflexia Active Condition [facility] Chronic Pain Syndrome ([facility]CT 282006716) Active Condition [facility] Colostomy present Active Condition [facility] Constipation ([facility] 24447092) Active Condition [facility] Continuous opioid dependence Active Condition [facility] COPD - Chronic Obstructive Pulmonary Disease ([facility] 85604710) Active Condition [facility] Dementia Active Condition [facility] Depression ([facility] 21785236) Active Condition [facility] Diabetes Mellitus Type 2 (SCT 97107349) Active Condition [facility] Ependymoma of spinal cord Active Condition [facility] Hearing Loss ([facility] 22644272) Active Condition [facility] History of Deep Vein Thrombosis ([facility]CT 001081327) Active Condition [facility] History of pressure injury Active Condition [facility] HTN - Hypertension ([facility]CT 62627842) Active Condition [facility] Hyperlipidemia ([facility] 03898661) Active Condition [facility] Hyponatremia Active Condition [facility] Long-term current use of anticoagulant Active Condition [facility] Neurogenic Bladder ([facility] 737655940) Active Condition [facility] Neurogenic bowel Active Condition [facility] Osteoporosis ([facility] 46629093) Active Condition [facility] Paraplegia Active Condition [facility] Spasticity Active Condition [facility] Suprapubic urinary catheter in situ Active Condition [facility] Supraventricular tachycardia Active Condition [facility] Tinnitus ([facility] 69375557) Active Condition [facility] Vitamin D Deficiency ([facility] 6020866) Active Condition [facility] Diagnosis: ICD-10-CM Z73.6 Limitation of activities due to disability Active Diagnosis [facility] Diagnosis: ICD-10-CM G82.20 Paraplegia, unspecified Active Diagnosis [facility] Diagnosis: ICD-10-CM Z43.3 Encounter for attention to colostomy Active Diagnosis [facility] Diagnosis: ICD-10-CM Z71.3 Dietary counseling and surveillance Active Diagnosis [facility] Diagnosis: ICD-10-CM F32.A Depression, unspecified Active Diagnosis [facility] Medications Combined list of outpatient medications from Department of Defense and [facility] Affairs facilities.Medications provided include 1) outpatient medications from the last 15 months, and 2) patient-reported medications. Medication Details Route Status Patient Instructions Prescription Expires Prescription Number Last Dispense Date Ordering Provider Order Date Order Qty Source ACETAMINOPH EN 500MG TAB TAKE TWO TABLETS BY MOUTH THREE TIMES A DAY NEEDED ORALLY ACTIVE Jagdish BARRETT N 2022 [facility] AMLODIPINE BESYLATE (AMLODIPINE BESYLATE), 5 MG, TABLET, ORAL, [employer] 1000 ea. BOTTLE Active [id number] 2023 90 Pharmac y Data Transac tion Service Facilit y AMLODIPINE BESYLATE (amlodipine besylate), 5 MG, TABLET, ORAL, [employer], 1000 ea. BOTTLE Active [id number] 4 2023 90 Pharmac y Data Transac tion Service Facilit y AMLODIPINE BESYLATE 2.5MG TAB TAKE TWO TABLETS BY MOUTH EVERY MORNING ORALLY ACTIVE Jagdish BARRETT 2022 [facility] AMOX TR-POTASSIU M CLAVULANATE (AMOXICILLI N/POTASSIUM CLAV), 875-125 MG, TABLET, ORAL, [employer] [facility], 20 ea. BOTTLE Active [id number] 3 2022 14 Pharmac y Data Transac tion Service Facilit y AMOXICILLIN -CLAVULANAT E POTASS (amoxicilli n/potassium clavulanate ), 875-125 MG, TABLET, ORAL, [employer],, 20 ea. BOTTLE Active [id number] 2023 56 Pharmac y Data Transac tion Service Facilit y ARIPIPRAZOL E (aripiprazo le), 2 MG, TABLET, ORAL, [employer], 500 ea. BOTTLE Active [id number] 2023 180 Pharmac y Data Transac tion Service Facilit y ARIPIPRAZOL E TAB TAKE 2MG BY MOUTH TWICE A DAY ORALLY ACTIVE Jey HANSON 2021 [facility] ATORVASTATI N CA 80MG TAB TAKE ONE-HALF TABLET BY MOUTH EVERY DAY ORALLY ACTIVE Jey HANSON 2021 [facility] ATORVASTATI N CALCIUM (atorvastat in calcium), 40 MG, TABLET, ORAL, [employer] PHARMA I, 1000 ea. BOTTLE Active [id number] 4 2023 90 Pharmac y Data Transac tion Service Facilit y BACLOFEN (baclofen), 20 MG, TABLET, ORAL, [employer] 1000 ea. BOTTLE Active [id number] 2023 540 Pharmac y Data Transac tion Service Facilit y BACLOFEN 20MG TAB TAKE TWO TABLETS BY MOUTH THREE TIMES A DAY ORALLY ACTIVE Jagdish BARRETT 2022 [facility] BUPROPION HCL 150MG 12HR TAB,SA TAKE ONE TABLET BY MOUTH TWICE A DAY ORALLY ACTIVE Jey HANSON 2021 [facility] BUPROPION HCL SR (bupropion HCl), 150 MG, TAB SR 12H, ORAL, [employer], 60 ea. BOTTLE Active [id number] 2023 180 Pharmac y Data Transac tion Service Facilit y CEPHALEXIN 250MG CAP TAKE 1 CAPSULE BY MOUTH EVERY DAY ORALLY ACTIVE Jey HANSON 2021 [facility] CHOLECALCIF GILSON 25MCG (1,000UNIT) TAB TAKE ONE TABLET BY MOUTH EVERY DAY ORALLY ACTIVE MARGIEJey Clemente 2021 [facility] CIPROFLOXAC IN HCL (CIPROFLOXA SHAR HCL), 750 MG, TABLET, ORAL, [employer], 50 ea. BOTTLE Active [id number] 2023 70 Pharmac y Data Transac tion Service Facilit y DONEPEZIL HCL (DONEPEZIL HCL), 5 MG, TABLET, ORAL, [employer] 1000 ea. BOTTLE Cancele d [id number] : 2023 0 Pharmac y Data Transac tion Service Facilit y DONEPEZIL HCL (DONEPEZIL HCL), 5 MG, TABLET, ORAL, [employer] 1000 ea. BOTTLE Active [id number] 2023 90 Pharmac y Data Transac tion Service Facilit y DONEPEZIL HCL 10MG TAB TAKE ONE-HALF TABLET BY MOUTH EVERY DAY ORALLY ACTIVE Jey HANSON 2021 [facility] DULOXETINE HCL (duloxetine HCl), 60 MG, CAPSULE DR, ORAL, [employer] 1000 ea. BOTTLE Active [id number] 2023 180 Pharmac y Data Transac tion Service Facilit y DULOXETINE HCL 30MG CAP,EC TAKE 2 CAPSULES BY MOUTH TWICE A DAY ORALLY ACTIVE Jey HANSON 2021 [facility] FAMOTIDINE 20MG TAB TAKE ONE TABLET BY MOUTH TWICE A DAY ORALLY ACTIVE CAROLYNNJeyALAINAEvelyn Bryn 2021 [facility] FUROSEMIDE (furosemide ), 40 MG, TABLET, ORAL, [employer]CAR, 1000 ea. BOTTLE Active [id number] 2023 180 Pharmac y Data Transac tion Service Facilit y FUROSEMIDE 40MG TAB TAKE ONE TABLET BY MOUTH TWICE A DAY ORALLY ACTIVE Jey HANSON 2021 [facility] GABAPENTIN (gabapentin ), 400 MG, CAPSULE, ORAL, [employer] 500 ea. BOTTLE Active [id number] 2023 270 Pharmac y Data Transac tion Service Facilit y GABAPENTIN 400MG CAP TAKE 1 CAPSULE BY MOUTH THREE TIMES A DAY ORALLY ACTIVE Jey HANSON M 2021 [facility] LORAZEPAM (lorazepam) , 0.5 MG, TABLET, ORAL, [employer], 1000 ea. BOTTLE Active [id number] 2023 120 Pharmac y Data Transac tion Service Facilit y LORAZEPAM (lorazepam) , 0.5 MG, TABLET, ORAL, [employer], 1000 ea. BOTTLE Active [id number] 2023 120 Pharmac y Data Transac tion Service Facilit y LORAZEPAM (lorazepam) , 0.5 MG, TABLET, ORAL, [employer], 1000 ea. BOTTLE Active [id number] 2023 120 Pharmac y Data Transac tion Service Facilit y LORAZEPAM 0.5MG TAB TAKE ONE TABLET BY MOUTH THREE TIMES A DAY AND TAKE TWO TABLETS BY MOUTH AT BEDTIME ORALLY ACTIVE Jagdish BARRETT N 2022 [facility] MILK OF MAGNESIA TAKE 30ML BY MOUTH EVERY DAY NEEDED ORALLY ACTIVE Jey HANSON 2021 [facility] MULTIVITAMI NS CAP/TAB TAKE ONE TABLET BY MOUTH EVERY DAY ORALLY ACTIVE Jey HANSONALAINAEvelyn M 2021 [facility] NALOXONE HCL 4MG/SPRAY SOLN,SPRAY, NASAL SPRAY 1 DOSE IN ONE NOSTRIL DIRECTED PRN NOSTRI L ACTIVE Jagdish BARRETT N 2022 [facility] OXYCODONE HCL (OXYCODONE HCL), 10 MG, TABLET, ORAL, [employer] 100 ea. BOTTLE Active [id number] 2023 120 Pharmac y Data Transac tion Service Facilit y OXYCODONE HCL (OXYCODONE HCL), 10 MG, TABLET, ORAL, [employer] 100 ea. BOTTLE Active [id number] 2023 120 Pharmac y Data Transac tion Service Facilit y OXYCODONE HCL (OXYCODONE HCL), 10 MG, TABLET, ORAL, [employer] 100 ea. BOTTLE Active [id number] 2023 120 Pharmac y Data Transac tion Service Facilit y OXYCODONE HCL (OXYCODONE HCL), 10 MG, TABLET, ORAL, [employer] 100 ea. BOTTLE Active [id number] 2022 120 Pharmac y Data Transac tion Service Facilit y OXYCODONE HCL 5MG TAB TAKE TWO TABLETS BY MOUTH FOUR TIMES A DAY ORALLY ACTIVE Jagdish BARRETT 2022 [facility] POTASSIUM CHLORIDE (potassium chloride), 10 MEQ, TAB ER PRT, ORAL, [employer], 100 ea. BOTTLE Active [id number] 2023 180 Pharmac y Data Transac tion Service Facilit y POTASSIUM CHLORIDE (potassium chloride), 20 MEQ, TAB ER PRT, ORAL, [employer], 100 ea. BOTTLE Active [id number] 2023 90 Pharmac y Data Transac tion Service Facilit y POTASSIUM CHLORIDE 20MEQ TAB,SA (DISPERSIBL E) TAKE ONE TABLET BY MOUTH TWICE A DAY ORALLY ACTIVE Jey HANSON 2021 [facility] CBTATI SANTYL (collagenas e Clostridium histolyticu m), 250 UNIT/G, OINT. (G), TOPICAL, WHITLOCK&N/UNI LUIS, 30 g TUBE Cancele d [id number] : 2023 0 Pharmac y Data Transac tion Service Facilit y WARFARIN SODIUM (warfarin sodium), 5 MG, TABLET, ORAL, [employer] 1000 ea. BOTTLE Cancele d [id number] : 2022 0 Pharmac y Data Transac tion Service Facilit y WARFARIN SODIUM (WARFARIN SODIUM), 5 MG, TABLET, ORAL, [employer], 1000 ea. BOTTLE Active [id number] 2023 12 Pharmac y Data Transac tion Service Facilit y WARFARIN SODIUM (WARFARIN SODIUM), 5 MG, TABLET, ORAL, [employer], 1000 ea. BOTTLE Active [id number] 2023 40 Pharmac y Data Transac tion Service Facilit y WARFARIN SODIUM (WARFARIN SODIUM), 5 MG, TABLET, ORAL, [employer], 1000 ea. BOTTLE Cancele d [id number] : 2022 0 Pharmac y Data Transac tion Service Facilit y WARFARIN SODIUM (warfarin sodium), 7.5 MG, TABLET, ORAL, [employer], 100 ea. BOTTLE Active [id number] 2023 51 Pharmac y Data Transac tion Service Facilit y WARFARIN SODIUM (warfarin sodium), 7.5 MG, TABLET, ORAL, [employer], 100 ea. BOTTLE Active [id number] 2023 78 Pharmac y Data Transac tion Service Facilit y WARFARIN TAB TAKE 5MG BY MOUTH SUN/THUR S AND TAKE 7.5MG BY MOUTH ALL OTHER DAYS ORALLY ACTIVE Jagdish BARRETT 2022 [facility] Allergies, Adverse Reactions, Alerts Combined list of allergies from Department of [facility] and 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 It does not include entries that were removed or entered in error. Substance Category Reaction Severity Reaction type Status Date Reported Comments Source AMOXICILLIN Propensity to adverse reactions to drug (finding) Eruption active 2 [facility] METOLAZONE Propensity to adverse reactions to drug (finding) Itching active 2 [facility] MORPHINE Propensity to adverse reactions to drug (finding) Delirium active 2 [facility] PIPERACILLIN Propensity to adverse reactions to drug (finding) Eruption active 2 [facility] SULFA DRUGS Propensity to adverse reactions to drug (finding) Eruption active 2 [facility] TAZOBACTAM SODIUM Propensity to adverse reactions to drug (finding) Eruption active 2 [facility] Immunizations Combined list of available immunizations from the Department of [facility] and 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 Immunization Series Date Given Administered By Site Reaction Lot Number CVX Code Drug Copy Coordinator Status Comments Source INFLUENZA, UNSPECIFIED FORMULATION 2021 88 complet ed 's recall [facility] TD (ADULT), 5 LF TETANUS TOXOID, PRESERVATIVE FREE, ADSORBED 2021 113 complet ed [facility] INFLUENZA, UNSPECIFIED FORMULATION 2020 88 complet ed [facility] COVID-19 (PFIZER), MRNA, LNP-S, PF, 30 MCG/0.3 ML DOSE 3 2020 208 complet ed [facility] COVID-19 (PFIZER), MRNA, LNP-S, PF, 30 MCG/0.3 ML DOSE 2 2020 208 complet ed [facility] COVID-19 (PFIZER), MRNA, LNP-S, PF, 30 MCG/0.3 ML DOSE 1 2020 208 complet ed [facility] PNEUMOCOCCAL CONJUGATE PCV 13 2014 133 complet ed [facility] ZOSTER LIVE 2012 121 complet ed [facility] PNEUMOCOCCAL POLYSACCHARID E PPV23 2010 33 complet ed [facility] TDAP 2010 115 complet ed [facility] Results Combined list of recent chemistry, [...] Feb 05, 2023 03:10 PM Reporting Lab: [facility] [address] Performing Lab: [facility] [address] [facility] CYSTATIN C WITH EGFR CYSTATIN C AND GLOMERULAR FILTRATION RATE BY CYSTATIN C-BASED FORMULA PANEL - SERUM OR PLASMA 53 60 02/13 L Specimen Type: PLASMA No comment entered. Ordering Provider: ANKUSH BOWMAN Report Released Date/Time: Feb 05, 2023 03:10 PM Reporting Lab: [facility] [address] Performing Lab: [facility] [address] [facility] BASIC METABOLI C PANEL+MG CREATININE [MASS/VOLU ME] IN SERUM OR PLASMA 0.7 0.7 - 1.2 02/13 Specimen Type: PLASMA No comment entered. Ordering Provider: ANKUSH BOWMAN Report Released Date/Time: Feb 05, 2023 03:10 PM Reporting Lab: [facility] [address] Performing Lab: [facility] [address] [place] [facility] BASIC METABOLI C PANEL+MG UREA NITROGEN [MASS/VOLU ME] IN SERUM OR PLASMA 15 8 - 26 02/13 Specimen Type: PLASMA No comment entered. Ordering Provider: ANKUSH BOWMAN Report Released Date/Time: Feb 05, 2023 03:10 PM Reporting Lab: [facility] [address] Performing Lab: [facility] [address] [place] [facility] BASIC METABOLI C PANEL+MG GLUCOSE [MASS/VOLU ME] IN SERUM OR PLASMA 140 70 - 100 02/13 H Specimen Type: PLASMA No comment entered. Ordering Provider: ANKUSH BOWMAN Report Released Date/Time: Feb 05, 2023 03:10 PM Reporting Lab: [facility] [address] Performing Lab: [facility] [address] [place] [facility] BASIC METABOLI C PANEL+MG SODIUM [MOLES/VOL UME] IN SERUM OR PLASMA 135 136 - 145 02/13 L Specimen Type: PLASMA No comment entered. Ordering Provider: ANKUSH BOWMAN Report Released Date/Time: Feb 05, 2023 03:10 PM Reporting Lab: [facility] [address] Performing Lab: [facility] [address] [place] [facility] BASIC METABOLI C PANEL+MG POTASSIUM [MOLES/VOL UME] IN SERUM OR PLASMA 4.0 3.5 - 5.1 02/13 Specimen Type: PLASMA No comment entered. Ordering Provider: ANKUSH BOWMAN Report Released Date/Time: Feb 05, 2023 03:10 PM Reporting Lab: [facility] [address] Performing Lab: [facility] [address] [place] [facility] BASIC METABOLI C PANEL+MG CHLORIDE [MOLES/VOL UME] IN SERUM OR PLASMA 99 98 - 107 02/13 Specimen Type: PLASMA No comment entered. Ordering Provider: ANKUSH BOWMAN Report Released Date/Time: Feb 05, 2023 03:10 PM Reporting Lab: [facility] [address] Performing Lab: [facility] [address] [place] [facility] BASIC METABOLI C PANEL+MG CARBON DIOXIDE, TOTAL [MOLES/VOL UME] IN SERUM OR PLASMA 29 22 - 29 02/13 Specimen Type: PLASMA No comment entered. Ordering Provider: ANKUSH BOWMAN Report Released Date/Time: Feb 05, 2023 03:10 PM Reporting Lab: [facility] [address] Performing Lab: [facility] [address] [place] [facility] BASIC METABOLI C PANEL+MG CALCIUM [MASS/VOLU ME] IN SERUM OR PLASMA 9.2 8.4 - 10.2 02/13 Specimen Type: PLASMA No comment entered. Ordering Provider: ANKUSH BOWMAN Report Released Date/Time: Feb 05, 2023 03:10 PM Reporting Lab: [facility] [address] Performing Lab: [facility] [address] [place] [facility] BASIC METABOLI C PANEL+MG MAGNESIUM [MASS/VOLU ME] IN SERUM OR PLASMA 2.0 1.6 - 2.6 02/13 Specimen Type: PLASMA No comment entered. Ordering Provider: ANKUSH BOWMAN Report Released Date/Time: Feb 05, 2023 03:10 PM Reporting Lab: [facility] [address] Performing Lab: [facility] [address] [place] [facility] BASIC METABOLI C PANEL+MG ANION GAP IN SERUM OR PLASMA 7 5 - 15 02/13 Specimen Type: PLASMA No comment entered. Ordering Provider: ANKUSH BOWMAN Report Released Date/Time: Feb 05, 2023 03:10 PM Reporting Lab: [facility] [address] Performing Lab: [facility] [address] [place] [facility] BASIC METABOLI C PANEL+MG GLOMERULAR FILTRATION RATE/1.73 SQ M.PREDICTE D [VOLUME RATE/AREA] IN SERUM, PLASMA OR BLOOD BY CREATININE -BASED FORMULA (CKD-EPI) >90 60 02/13 Specimen Type: PLASMA No comment entered. Ordering Provider: ANKUSH BOWMAN Report Released Date/Time: Feb 05, 2023 03:10 PM Reporting Lab: [facility] [address] Performing Lab: [facility] [address] [place] [facility] URINALYS IS COLOR OF URINE YELLOW 10/08 Specimen Type: URINE No comment entered. Ordering Provider: ANKUSH BOWMAN Report Released Date/Time: Sep 24, 2022 01:55 PM Reporting Lab: [facility] [address] Performing Lab: [facility] [address] [place] [facility] URINALYS IS SPECIFIC GRAVITY OF URINE 1.023 1.003 - 1.035 10/08 Specimen Type: URINE No comment entered. Ordering Provider: ANKUSH BOWMAN Report Released Date/Time: Sep 24, 2022 01:55 PM Reporting Lab: [facility] [address] Performing Lab: [facility] [address] [place] [facility] URINALYS IS BILIRUBIN. TOTAL [PRESENCE] IN URINE BY TEST STRIP NEGATIVE 10/08 Specimen Type: URINE No comment entered. Ordering Provider: ANKUSH BOWMAN Report Released Date/Time: Sep 24, 2022 01:55 PM Reporting Lab: [facility] [address] Performing Lab: [facility] [address] [place] [facility] URINALYS IS KETONES [MASS/VOLU ME] IN URINE BY TEST STRIP NEGATIVE 10/08 Specimen Type: URINE No comment entered. Ordering Provider: ANKUSH BOWMAN Report Released Date/Time: Sep 24, 2022 01:55 PM Reporting Lab: [facility] [address] Performing Lab: [facility] [address] [place] [facility] URINALYS IS GLUCOSE [MASS/VOLU ME] IN URINE BY TEST STRIP NEGATIVE 10/08 Specimen Type: URINE No comment entered. Ordering Provider: ANKUSH BOWMAN Report Released Date/Time: Sep 24, 2022 01:55 PM Reporting Lab: [facility] [address] Performing Lab: [facility] [address] [place] [facility] URINALYS IS PROTEIN [MASS/VOLU ME] IN URINE BY TEST STRIP 30 10/08 Specimen Type: URINE No comment entered. Ordering Provider: ANKUSH BOWMAN Report Released Date/Time: Sep 24, 2022 01:55 PM Reporting Lab: [facility] [address] Performing Lab: [facility] [address] [place] [facility] URINALYS IS PH OF URINE BY TEST STRIP 7.5 5.0 - 8.0 10/08 Specimen Type: URINE No comment entered. Ordering Provider: ANKUSH BOWMAN Report Released Date/Time: Sep 24, 2022 01:55 PM Reporting Lab: [facility] [address] Performing Lab: [facility] [address] [place] [facility] URINALYS IS LEUKOCYTES [#/AREA] IN URINE SEDIMENT BY MICROSCOPY HIGH POWER FIELD >180 0 - 7 10/08 H Specimen Type: URINE No comment entered. Ordering Provider: ANKUSH BOWMAN Report Released Date/Time: Sep 24, 2022 01:55 PM Reporting Lab: [facility] [address] Performing Lab: [facility] [address] [place] [facility] URINALYS IS BACTERIA [PRESENCE] IN URINE SEDIMENT BY LIGHT MICROSCOPY MANY 10/08 Specimen Type: URINE No comment entered. Ordering Provider: ANKUSH BOWMAN Report Released Date/Time: Sep 24, 2022 01:55 PM Reporting Lab: [facility] [address] Performing Lab: [facility] [address] [place] [facility] URINALYS IS ERYTHROCYT ES [#/AREA] IN URINE SEDIMENT BY MICROSCOPY HIGH POWER FIELD 33 0 - 3 10/08 H Specimen Type: URINE No comment entered. Ordering Provider: ANKUSH BOWMAN Report Released Date/Time: Sep 24, 2022 01:55 PM Reporting Lab: [facility] [address] Performing Lab: [facility] [address] [place] [facility] URINALYS IS APPEARANCE OF URINE EX.TURBI D 10/08 Specimen Type: URINE No comment entered. Ordering Provider: ANKUSH BOWMAN Report Released Date/Time: Sep 24, 2022 01:55 PM Reporting Lab: [facility] [address] Performing Lab: [facility] [address] [place] [facility] URINALYS IS EPITHELIAL CELLS.SQUA MOUS [#/AREA] IN URINE SEDIMENT BY MICROSCOPY HIGH POWER FIELD 1 10/08 Specimen Type: URINE No comment entered. Ordering Provider: ANKUSH BOWMAN Report Released Date/Time: Sep 24, 2022 01:55 PM Reporting Lab: [facility] [address] Performing Lab: [facility] [address] [place] [facility] URINALYS IS HEMOGLOBIN [PRESENCE] IN URINE BY TEST STRIP 1+ 10/08 Specimen Type: URINE No comment entered. Ordering Provider: ANKUSH BOWMAN Report Released Date/Time: Sep 24, 2022 01:55 PM Reporting Lab: [facility] [address] Performing Lab: [facility] [address] [place] [facility] URINALYS IS NITRITE [PRESENCE] IN URINE BY TEST STRIP NEGATIVE 10/08 Specimen Type: URINE No comment entered. Ordering Provider: ANKUSH BOWMAN Report Released Date/Time: Sep 24, 2022 01:55 PM Reporting Lab: [facility] [address] Performing Lab: [facility] [address] [place] [facility] URINALYS IS LEUKOCYTE CLUMPS [#/VOLUME] IN URINE BY AUTOMATED COUNT PRESENT 10/08 Specimen Type: URINE No comment entered. Ordering Provider: ANKUSH BOWMAN Report Released Date/Time: Sep 24, 2022 01:55 PM Reporting Lab: [facility] [address] Performing Lab: [facility] [address] [place] [facility] URINALYS IS LEUKOCYTE ESTERASE [PRESENCE] IN URINE BY TEST STRIP 500 10/08 Specimen Type: URINE No comment entered. Ordering Provider: ANKUSH BOWMAN Report Released Date/Time: Sep 24, 2022 01:55 PM Reporting Lab: [facility] [address] Performing Lab: [facility] [address] [place] [facility] ALBUMIN ALBUMIN [MASS/VOLU ME] IN SERUM OR PLASMA 4.2 3.5 - 5.2 10/08 Specimen Type: PLASMA No comment entered. Ordering Provider: ANKUSH BOWMAN Report Released Date/Time: Sep 24, 2022 01:55 PM Reporting Lab: [facility] [address] Performing Lab: [facility] [address] [place] [facility] PRE-ALBU MIN PREALBUMIN [MASS/VOLU ME] IN SERUM OR PLASMA 28.4 14.0 - 45.0 10/08 Specimen Type: SERUM No comment entered. Ordering Provider: ANKUSH BOWMAN Report Released Date/Time: Sep 24, 2022 01:55 PM Reporting Lab: [facility] [address] Performing Lab: [facility] [address] [place] [facility] COMPREHE NSIVE METABOLI C PANEL+MG CREATININE [MASS/VOLU ME] IN SERUM OR PLASMA 0.7 0.7 - 1.2 10/08 Specimen Type: PLASMA No comment entered. Ordering Provider: ANKUSH BOWMAN Report Released Date/Time: Sep 24, 2022 01:55 PM Reporting Lab: [facility] [address] Performing Lab: [facility] [address] [place] [facility] COMPREHE NSIVE METABOLI C PANEL+MG UREA NITROGEN [MASS/VOLU ME] IN SERUM OR PLASMA 16 8 - 26 10/08 Specimen Type: PLASMA No comment entered. Ordering Provider: ANKUSH BOWMAN Report Released Date/Time: Sep 24, 2022 01:55 PM Reporting Lab: [facility] [address] Performing Lab: [facility] [id number] [place] [facility] COMPREHE NSIVE METABOLI C PANEL+MG GLUCOSE [MASS/VOLU ME] IN SERUM OR PLASMA 94 70 - 100 10/08 Specimen Type: PLASMA No comment entered. Ordering Provider: ANKUSH BOWMAN Report Released Date/Time: Sep 24, 2022 01:55 PM Reporting Lab: [facility] [id number] Performing Lab: [facility] [id number] [place] [facility] COMPREHE NSIVE METABOLI C PANEL+MG SODIUM [MOLES/VOL UME] IN SERUM OR PLASMA 138 136 - 145 10/08 Specimen Type: PLASMA No comment entered. Ordering Provider: ANKUSH BOWMAN Report Released Date/Time: Sep 24, 2022 01:55 PM Reporting Lab: [facility] [address] Performing Lab: [facility] [address] [place] [facility] COMPREHE NSIVE METABOLI C PANEL+MG POTASSIUM [MOLES/VOL UME] IN SERUM OR PLASMA 3.9 3.5 - 5.1 10/08 Specimen Type: PLASMA No comment entered. Ordering Provider: ANKUSH BOWMAN Report Released Date/Time: Sep 24, 2022 01:55 PM Reporting Lab: [facility] [address] Performing Lab: [facility] [address] [place] [facility] COMPREHE NSIVE METABOLI C PANEL+MG CHLORIDE [MOLES/VOL UME] IN SERUM OR PLASMA 101 98 - 107 10/08 Specimen Type: PLASMA No comment entered. Ordering Provider: ANKUSH BOWMAN Report Released Date/Time: Sep 24, 2022 01:55 PM Reporting Lab: [facility] [address] Performing Lab: [facility] [address] [place] [facility] COMPREHE NSIVE METABOLI C PANEL+MG CARBON DIOXIDE, TOTAL [MOLES/VOL UME] IN SERUM OR PLASMA 28 - 29 10/08 Specimen Type: PLASMA No comment entered. Ordering Provider: ANKUSH BOWMAN Report Released Date/Time: Sep 24, 2022 01:55 PM Reporting Lab: [facility] [address] Performing Lab: [facility] [address] [place] [facility] COMPREHE NSIVE METABOLI C PANEL+MG CALCIUM [MASS/VOLU ME] IN SERUM OR PLASMA 9.7 8.4 - 10.2 10/08 Specimen Type: PLASMA No comment entered. Ordering Provider: ANKUSH BOWMAN Report Released Date/Time: Sep 24, 2022 01:55 PM Reporting Lab: [facility] [address] Performing Lab: [facility] [address] [place] [facility] COMPREHE NSIVE METABOLI C PANEL+MG PROTEIN [MASS/VOLU ME] IN SERUM OR PLASMA 7.6 6.0 - 8.3 10/08 Specimen Type: PLASMA No comment entered. Ordering Provider: ANKUSH BOWMAN Report Released Date/Time: Sep 24, 2022 01:55 PM Reporting Lab: [facility] [address] Performing Lab: [facility] [address] [place] [facility] COMPREHE NSIVE METABOLI C PANEL+MG ALBUMIN [MASS/VOLU ME] IN SERUM OR PLASMA 4.2 3.5 - 5.2 10/08 Specimen Type: PLASMA No comment entered. Ordering Provider: ANKUSH BOWMAN Report Released Date/Time: Sep 24, 2022 01:55 PM Reporting Lab: [facility] [address] Performing Lab: [facility] [address] [place] [facility] COMPREHE NSIVE METABOLI C PANEL+MG BILIRUBIN. TOTAL [MASS/VOLU ME] IN SERUM OR PLASMA 0.6 0.2 - 1.2 10/08 Specimen Type: PLASMA No comment entered. Ordering Provider: ANKUSH BOWMAN Report Released Date/Time: Sep 24, 2022 01:55 PM Reporting Lab: [facility] [address] Performing Lab: [facility] [address] [place] [facility] COMPREHE NSIVE METABOLI C PANEL+MG MAGNESIUM [MASS/VOLU ME] IN SERUM OR PLASMA 2.1 1.6 - 2.6 10/08 Specimen Type: PLASMA No comment entered. Ordering Provider: ANKUSH BOWMAN Report Released Date/Time: Sep 24, 2022 01:55 PM Reporting Lab: [facility] [address] Performing Lab: [facility] [address] [place] [facility] COMPREHE NSIVE METABOLI C PANEL+MG ANION GAP IN SERUM OR PLASMA 9 5 - 15 10/08 Specimen Type: PLASMA No comment entered. Ordering Provider: ANKUSH BOWMAN Report Released Date/Time: Sep 24, 2022 01:55 PM Reporting Lab: [facility] [address] Performing Lab: [facility] [address] [place] [facility] COMPREHE NSIVE METABOLI C PANEL+MG ALKALINE PHOSPHATAS E [ENZYMATIC ACTIVITY/V OLUME] IN SERUM OR PLASMA 96 40 - 150 10/08 Specimen Type: PLASMA No comment entered. Ordering Provider: ANKUSH BOWMAN Report Released Date/Time: Sep 24, 2022 01:55 PM Reporting Lab: [facility] [address] Performing Lab: [facility] [address] [place] [facility] COMPREHE NSIVE METABOLI C PANEL+MG ALANINE AMINOTRANS FERASE [ENZYMATIC ACTIVITY/V OLUME] IN SERUM OR PLASMA 29 <55 - 55 10/08 Specimen Type: PLASMA No comment entered. Ordering Provider: ANKUSH BOWMAN Report Released Date/Time: Sep 24, 2022 01:55 PM Reporting Lab: [facility] [address] Performing Lab: [facility] [address] [place] [facility] COMPREHE NSIVE METABOLI C PANEL+MG ASPARTATE AMINOTRANS FERASE [ENZYMATIC ACTIVITY/V OLUME] IN SERUM OR PLASMA 22 <34 - 34 10/08 Specimen Type: PLASMA No comment entered. Ordering Provider: ANKUSH BOWMAN Report Released Date/Time: Sep 24, 2022 01:55 PM Reporting Lab: [facility] [address] Performing Lab: [facility] [address] [place] [facility] COMPREHE NSIVE METABOLI C PANEL+MG GLOMERULAR FILTRATION RATE/1.73 SQ M.PREDICTE D [VOLUME RATE/AREA] IN SERUM, PLASMA OR BLOOD BY CREATININE -BASED FORMULA (CKD-EPI) >90 60 10/08 Specimen Type: PLASMA No comment entered. Ordering Provider: ANKUSH BOWMAN Report Released Date/Time: Sep 24, 2022 01:55 PM Reporting Lab: [facility] [address] Performing Lab: [facility] [address] [place] [facility] CBC & DIFF LEUKOCYTES [#/VOLUME] IN BLOOD BY AUTOMATED COUNT 7.32 4.0 - 11.0 10/08 Specimen Type: BLOOD Comment: Automated Differentia l Performed Ordering Provider: ANKUSH BOWMAN Report Released Date/Time: Sep 24, 2022 01:55 PM Reporting Lab: [facility] [address] Performing Lab: [facility] [address] [place] [facility] CBC & DIFF ERYTHROCYT ES [#/VOLUME] IN BLOOD BY AUTOMATED COUNT 4.80 4.6 - 6.2 10/08 Specimen Type: BLOOD Comment: Automated Differentia l Performed Ordering Provider: ANKUSH BOWMAN Report Released Date/Time: Sep 24, 2022 01:55 PM Reporting Lab: [facility] [address] Performing Lab: [facility] [address] [place] [facility] CBC & DIFF HEMOGLOBIN [MASS/VOLU ME] IN BLOOD 14.7 13.5 - 17.9 10/08 Specimen Type: BLOOD Comment: Automated Differentia l Performed Ordering Provider: ANKUSH BOWMAN Report Released Date/Time: Sep 24, 2022 01:55 PM Reporting Lab: [facility] [address] Performing Lab: [facility] [address] [place] [facility] CBC & DIFF HEMATOCRIT [VOLUME FRACTION] OF BLOOD BY AUTOMATED COUNT 44.2 41 - 54 10/08 Specimen Type: BLOOD Comment: Automated Differentia l Performed Ordering Provider: ANKUSH BOWMAN Report Released Date/Time: Sep 24, 2022 01:55 PM Reporting Lab: [facility] [address] Performing Lab: [facility] [address] [place] [facility] CBC & DIFF MCV [ENTITIC VOLUME] BY AUTOMATED COUNT 92.1 80 - 100 10/08 Specimen Type: BLOOD Comment: Automated Differentia l Performed Ordering Provider: ANKUSH BOWMAN Report Released Date/Time: Sep 24, 2022 01:55 PM Reporting Lab: [facility] [address] Performing Lab: [facility] [address] [place] [facility] CBC & DIFF MCH [ENTITIC MASS] BY AUTOMATED COUNT 30.6 27 - 33 10/08 Specimen Type: BLOOD Comment: Automated Differentia l Performed Ordering Provider: ANKUSH BOWMAN Report Released Date/Time: Sep 24, 2022 01:55 PM Reporting Lab: [facility] [address] Performing Lab: [facility] [address] [place] [facility] CBC & DIFF MCHC [MASS/VOLU ME] BY AUTOMATED COUNT 33.3 32.0 - 37.5 10/08 Specimen Type: BLOOD Comment: Automated Differentia l Performed Ordering Provider: ANKUSH BOWMAN Report Released Date/Time: Sep 24, 2022 01:55 PM Reporting Lab: [facility] [address] Performing Lab: [facility] [address] [place] [facility] CBC & DIFF PLATELETS [#/VOLUME] IN BLOOD BY AUTOMATED COUNT 144 150 - 400 10/08 L Specimen Type: BLOOD Comment: Automated Differentia l Performed Ordering Provider: ANKUSH BOWMAN Report Released Date/Time: Sep 24, 2022 01:55 PM Reporting Lab: [facility] [address] Performing Lab: [facility] [address] [place] [facility] CBC & DIFF PLATELET MEAN VOLUME [ENTITIC VOLUME] IN BLOOD BY AUTOMATED COUNT 10.8 7.4 - 10.4 10/08 H Specimen Type: BLOOD Comment: Automated Differentia l Performed Ordering Provider: ANKUSH BOWMAN Report Released Date/Time: Sep 24, 2022 01:55 PM Reporting Lab: [facility] [address] Performing Lab: [facility] [address] [place] [facility] CBC & DIFF NEUTROPHIL S/100 LEUKOCYTES IN BLOOD BY MANUAL COUNT 55.5 10/08 Specimen Type: BLOOD Comment: Automated Differentia l Performed Ordering Provider: ANKUSH BOWMAN Report Released Date/Time: Sep 24, 2022 01:55 PM Reporting Lab: [facility] [address] Performing Lab: [facility] [address] [place] [facility] CBC & DIFF LYMPHOCYTE S/100 LEUKOCYTES IN BLOOD BY MANUAL COUNT 31.4 10/08 Specimen Type: BLOOD Comment: Automated Differentia l Performed Ordering Provider: ANKUSH BOWMAN Report Released Date/Time: Sep 24, 2022 01:55 PM Reporting Lab: [facility] [address] Performing Lab: [facility] [address] [place] [facility] CBC & DIFF MONOCYTES/ 100 LEUKOCYTES IN BLOOD BY AUTOMATED COUNT 10.2 10/08 Specimen Type: BLOOD Comment: Automated Differentia l Performed Ordering Provider: ANKUSH BOWMAN Report Released Date/Time: Sep 24, 2022 01:55 PM Reporting Lab: [facility] [address] Performing Lab: [facility] [address] [place] [facility] CBC & DIFF EOSINOPHIL S/100 LEUKOCYTES IN BLOOD BY AUTOMATED COUNT 2.2 10/08 Specimen Type: BLOOD Comment: Automated Differentia l Performed Ordering Provider: ANKUSH BOWMAN Report Released Date/Time: Sep 24, 2022 01:55 PM Reporting Lab: [facility] [address] Performing Lab: [facility] [address] [place] [facility] CBC & DIFF BASOPHILS/ 100 LEUKOCYTES IN BLOOD BY MANUAL COUNT 0.4 10/08 Specimen Type: BLOOD Comment: Automated Differentia l Performed Ordering Provider: ANKUSH BOWMAN Report Released Date/Time: Sep 24, 2022 01:55 PM Reporting Lab: [facility] [address] Performing Lab: [facility] [address] [place] [facility] CBC & DIFF ERYTHROCYT E DISTRIBUTI ON WIDTH [RATIO] BY AUTOMATED COUNT 15.9 11.5 - 14.5 10/08 H Specimen Type: BLOOD Comment: Automated Differentia l Performed Ordering Provider: ANKUSH BOWMAN Report Released Date/Time: Sep 24, 2022 01:55 PM Reporting Lab: [facility] [address] Performing Lab: [facility] [address] [place] [facility] CBC & DIFF LYMPHOCYTE S [#/VOLUME] IN BLOOD BY AUTOMATED COUNT 2.30 1.0 - 4.0 10/08 Specimen Type: BLOOD Comment: Automated Differentia l Performed Ordering Provider: ANKUSH BOWMAN Report Released Date/Time: Sep 24, 2022 01:55 PM Reporting Lab: [facility] [address] Performing Lab: [facility] [address] [place] [facility] CBC & DIFF MONOCYTES [#/VOLUME] IN BLOOD BY AUTOMATED COUNT 0.75 0.1 - 1.0 10/08 Specimen Type: BLOOD Comment: Automated Differentia l Performed Ordering Provider: ANKUSH BOWMAN Report Released Date/Time: Sep 24, 2022 01:55 PM Reporting Lab: [facility] [address] Performing Lab: [facility] [address] [place] [facility] CBC & DIFF NEUTROPHIL S [#/VOLUME] IN BLOOD BY AUTOMATED COUNT 4.06 2.0 - 7.7 10/08 Specimen Type: BLOOD Comment: Automated Differentia l Performed Ordering Provider: ANKUSH BOWMAN Report Released Date/Time: Sep 24, 2022 01:55 PM Reporting Lab: [facility] [address] Performing Lab: [facility] [address] [place] [facility] CBC & DIFF EOSINOPHIL S [#/VOLUME] IN BLOOD BY AUTOMATED COUNT 0.16 0 - 0.5 10/08 Specimen Type: BLOOD Comment: Automated Differentia l Performed Ordering Provider: ANKUSH BOWMAN Report Released Date/Time: Sep 24, 2022 01:55 PM Reporting Lab: [facility] [address] Performing Lab: [facility] [address] [place] [facility] CBC & DIFF BASOPHILS [#/VOLUME] IN BLOOD BY AUTOMATED COUNT 0.03 0 - 0.2 10/08 Specimen Type: BLOOD Comment: Automated Differentia l Performed Ordering Provider: ANKUSH BOWMAN Report Released Date/Time: Sep 24, 2022 01:55 PM Reporting Lab: [facility] [address] Performing Lab: [facility] [address] [place] [facility] CBC & DIFF IG(META,MY MALACHI,PRO) 0.3 10/08 Specimen Type: BLOOD Comment: Automated Differentia l Performed Ordering Provider: ANKUSH BOWMAN Report Released Date/Time: Sep 24, 2022 01:55 PM Reporting Lab: [facility] [address] Performing Lab: [facility] [address] [place] [facility] CBC & DIFF IMMATURE GRANULOCYT ES [PRESENCE] IN BLOOD BY AUTOMATED COUNT 0.02 0 - 0.1 10/08 Specimen Type: BLOOD Comment: Automated Differentia l Performed Ordering Provider: ANKUSH BOWMAN Report Released Date/Time: Sep 24, 2022 01:55 PM Reporting Lab: [facility] [address] Performing Lab: [facility] [address] [place] [facility] CYSTATIN C WITH EGFR CYSTATIN C [MASS/VOLU ME] IN SERUM OR PLASMA 1.38 0.51 - 1.05 10/08 H Specimen Type: PLASMA No comment entered. Ordering Provider: ANKUSH BOWMAN Report Released Date/Time: Sep 24, 2022 01:55 PM Reporting Lab: [facility] [address] Performing Lab: [facility] [address] [facility] CYSTATIN C WITH EGFR CYSTATIN C AND GLOMERULAR FILTRATION RATE BY CYSTATIN-B ASED FORMULA PANEL - SERUM OR PLASMA 48 60 10/08 L Specimen Type: PLASMA No comment entered. Ordering Provider: ANKUSH BOWMAN Report Released Date/Time: Sep 24, 2022 01:55 PM Reporting Lab: [facility] [address] Performing Lab: [facility] [address] [place] [facility] VIT D 25-OH,TO ZAMZAM 25-HYDROXY VITAMIN D3 [MASS/VOLU ME] IN SERUM OR PLASMA 54 12 - 50 10/08 H Specimen Type: SERUM No comment entered. Ordering Provider: ANKUSH BOWMAN Report Released Date/Time: Sep 24, 2022 01:55 PM Reporting Lab: [facility] [address] Performing Lab: [facility] [address] [place] [facility] COMPREHE NSIVE METABOLI C PANEL+MG CREATININE [MASS/VOLU ME] IN SERUM OR PLASMA 0.7 0.7 - 1.2 05/28 Specimen Type: PLASMA No comment entered. Ordering Provider: GERMANIA HANSON Report Released Date/Time: May 28, 2022 03:06 PM Reporting Lab: [facility] [address] Performing Lab: [facility] [address] [facility] COMPREHE NSIVE METABOLI C PANEL+MG UREA NITROGEN [MASS/VOLU ME] IN SERUM OR PLASMA 13 8 - 26 05/28 Specimen Type: PLASMA No comment entered. Ordering Provider: GERMANIA HANSON Report Released Date/Time: May 28, 2022 03:06 PM Reporting Lab: [facility] [address] Performing Lab: [facility] [address] [facility] COMPREHE NSIVE METABOLI C PANEL+MG GLUCOSE [MASS/VOLU ME] IN SERUM OR PLASMA 98 74 - 100 05/28 Specimen Type: PLASMA No comment entered. Ordering Provider: GERMANIA HANSON Report Released Date/Time: May 28, 2022 03:06 PM Reporting Lab: [facility] [address] Performing Lab: [facility] [address] [facility] COMPREHE NSIVE METABOLI C PANEL+MG SODIUM [MOLES/VOL UME] IN SERUM OR PLASMA 138 136 - 145 05/28 Specimen Type: PLASMA No comment entered. Ordering Provider: GERMANIA HANSON Report Released Date/Time: May 28, 2022 03:06 PM Reporting Lab: [facility] [address] Performing Lab: [facility] [address] [facility] COMPREHE NSIVE METABOLI C PANEL+MG POTASSIUM [MOLES/VOL UME] IN SERUM OR PLASMA 4.4 3.5 - 5.1 05/28 Specimen Type: PLASMA No comment entered. Ordering Provider: GERMANIA HANSON Report Released Date/Time: May 28, 2022 03:06 PM Reporting Lab: [facility] [address] Performing Lab: [facility] [address] [facility] COMPREHE NSIVE METABOLI C PANEL+MG CHLORIDE [MOLES/VOL UME] IN SERUM OR PLASMA 102 98 - 107 05/28 Specimen Type: PLASMA No comment entered. Ordering Provider: GERMANIA HANSON Report Released Date/Time: May 28, 2022 03:06 PM Reporting Lab: [facility] [address] Performing Lab: [facility] [address] [facility] COMPREHE NSIVE METABOLI C PANEL+MG CARBON DIOXIDE, TOTAL [MOLES/VOL UME] IN SERUM OR PLASMA 28 22 - 29 05/28 Specimen Type: PLASMA No comment entered. Ordering Provider: GERMANIA HANSON Report Released Date/Time: May 28, 2022 03:06 PM Reporting Lab: [facility] [address] Performing Lab: [facility] [address] [facility] COMPREHE NSIVE METABOLI C PANEL+MG CALCIUM [MASS/VOLU ME] IN SERUM OR PLASMA 9.4 8.4 - 10.2 05/28 Specimen Type: PLASMA No comment entered. Ordering Provider: GERMANIA HANSON Report Released Date/Time: May 28, 2022 03:06 PM Reporting Lab: [facility] [address] Performing Lab: [facility] [address] [facility] COMPREHE NSIVE METABOLI C PANEL+MG PROTEIN [MASS/VOLU ME] IN SERUM OR PLASMA 7.6 6.0 - 8.3 05/28 Specimen Type: PLASMA No comment entered. Ordering Provider: GERMANIA HANSON Report Released Date/Time: May 28, 2022 03:06 PM Reporting Lab: [facility] [address] Performing Lab: [facility] [address] [facility] COMPREHE NSIVE METABOLI C PANEL+MG ALBUMIN [MASS/VOLU ME] IN SERUM OR PLASMA 4.0 3.5 - 5.2 05/28 Specimen Type: PLASMA No comment entered. Ordering Provider: GERMANIA HANSON Report Released Date/Time: May 28, 2022 03:06 PM Reporting Lab: [facility] [address] Performing Lab: [facility] [address] [facility] COMPREHE NSIVE METABOLI C PANEL+MG BILIRUBIN. TOTAL [MASS/VOLU ME] IN SERUM OR PLASMA 0.5 0.2 - 1.2 05/28 Specimen Type: PLASMA No comment entered. Ordering Provider: GERMANIA HANSON Report Released Date/Time: May 28, 2022 03:06 PM Reporting Lab: [facility] [address] Performing Lab: [facility] [address] [facility] COMPREHE NSIVE METABOLI C PANEL+MG MAGNESIUM [MASS/VOLU ME] IN SERUM OR PLASMA 2.1 1.6 - 2.6 05/28 Specimen Type: PLASMA No comment entered. Ordering Provider: GERMANIA HANSON Report Released Date/Time: May 28, 2022 03:06 PM Reporting Lab: [facility] [address] Performing Lab: [facility] [address] [facility] COMPREHE NSIVE METABOLI C PANEL+MG ANION GAP IN SERUM OR PLASMA 8 5 - 15 05/28 Specimen Type: PLASMA No comment entered. Ordering Provider: GERMANIA HANSON Report Released Date/Time: May 28, 2022 03:06 PM Reporting Lab: [facility] [address] Performing Lab: [facility] [address] [facility] COMPREHE NSIVE METABOLI C PANEL+MG ALKALINE PHOSPHATAS E [ENZYMATIC ACTIVITY/V OLUME] IN SERUM OR PLASMA 108 40 - 150 05/28 Specimen Type: PLASMA No comment entered. Ordering Provider: GERMANIA HANSON Report Released Date/Time: May 28, 2022 03:06 PM Reporting Lab: [facility] [address] Performing Lab: [facility] [address] [facility] COMPREHE NSIVE METABOLI C PANEL+MG ALANINE AMINOTRANS FERASE [ENZYMATIC ACTIVITY/V OLUME] IN SERUM OR PLASMA 27 <55 - 55 05/28 Specimen Type: PLASMA No comment entered. Ordering Provider: GERMANIA HANSON Report Released Date/Time: May 28, 2022 03:06 PM Reporting Lab: [facility] [address] Performing Lab: [facility] [address] [facility] COMPREHE NSIVE METABOLI C PANEL+MG ASPARTATE AMINOTRANS FERASE [ENZYMATIC ACTIVITY/V OLUME] IN SERUM OR PLASMA 21 <34 - 34 05/28 Specimen Type: PLASMA No comment entered. Ordering Provider: GERMANIA HANSON Report Released Date/Time: May 28, 2022 03:06 PM Reporting Lab: [facility] [address] Performing Lab: [facility] [address] [facility] COMPREHE NSIVE METABOLI C PANEL+MG GLOMERULAR FILTRATION RATE/1.73 SQ M.PREDICTE D [VOLUME RATE/AREA] IN SERUM, PLASMA OR BLOOD BY CREATININE -BASED FORMULA (CKD-EPI) >90 60 05/28 Specimen Type: PLASMA No comment entered. Ordering Provider: GERMANIA HANSON Report Released Date/Time: May 28, 2022 03:06 PM Reporting Lab: [facility] [address] Performing Lab: [facility] [address] [facility] Vital Signs Combined list of inpatient and outpatient Vital Signs from Department of [facility] and [facility], ranging from 12 months to all on record, depending upon the facility. Vital Sign Value Date Comments Source SYSTOLIC BLOOD PRESSURE 103 02/13/2023 10:58:23 [facility] DIASTOLIC BLOOD PRESSURE 66 02/13/2023 10:58:23 [facility] PULSE OXIMETRY 98% 02/13/2023 10:58:23 [facility] 4 02/13/2023 10:58:23 [facility] TEMPERATURE 96.2 02/13/2023 10:58:23 [facility] PULSE 86 02/13/2023 10:58:23 [facility] RESPIRATION 16 02/13/2023 10:58:23 [facility] Encounters Combined list of: 1) Encounters from Department of [facility] facilities going back up to thelast 18 months. 2) Encounters from the Department of [facility] facilities going back up to 280 months. Location Location Details Encounter Type Encounter Number Reason For Visit Attending Provider ADM Date DC Date Status Disposition Source [facility] Outpatient Encounter [id number] 08/17 [facility] Outpatient Encounter [id number] 09/20 [facility] OFFICE O/P EST MINIMAL PROB [id number] Diagnos is: ICD-10- CM G82.20 Paraple mary kay, unspeci fied
Jey PATTON V 10/08 [facility] ASSISTIVE TECHNOLOGY ASSESS [id number] Diagnos is: ICD-10- CM Z73.6 Limitat ion of activit ies due to disabil ity<br/ > BOUSLOG,RY AN P 10/08 [facility] Outpatient Encounter [id number] 10/09 [facility] Outpatient Encounter [id number] 10/11 [facility] HC PRO PHONE CALL 5-10 MIN [id number] Diagnos is: ICD-10- CM Z73.6 Limitat ion of activit ies due to disabil ity<br/ > AVE HALEY 12/13 [facility] Outpatient Encounter [id number] 01/08 [facility] PRO PHONE CALL 21-30 MIN [id number] Diagnos is: ICD-10- CM G82.20 Paraple mary kay, unspeci fied
Hever CASTRO 01/08 [facility] Outpatient Encounter [id number] 01/09 [facility] DIABETIC MANAGEMENT PROGRAM, [id number] Diagnos is: ICD-10- CM G82.20 Paraple mary kay, unspeci fied
TIGIST BASSETT 01/30 [facility] Outpatient Encounter [id number] 02/05 [facility] MTMS BY PHARM ADDL 15 MIN [id number] Diagnos is: ICD-10- CM G82.20 Paraple mary kay, unspeci fied
MANPREET BARRETT 02/05 [facility] OT EVAL LOW COMPLEX 30 MIN [id number] Diagnos is: ICD-10- CM Z73.6 Limitat ion of activit ies due to disabil ity<br/ > Bryn PARDO 02/05 [facility] OFF/OP EST MAY X REQ PHY/QHP [phone] Diagnos is: ICD-10- CM G82.20 Paraple mary kay, unspeci fied
JOSUÉ ZAMORA J 02/05 [facility] PSYCH DIAGNOSTIC EVALUATION [phone] Diagnos is: ICD-10- CM F32.A Depress ion, unspeci fied
BINU GAMEZ 02/05 [facility] OFFICE O/P EST MOD 30-39 MIN [phone] Diagnos is: ICD-10- CM G82.20 Paraple mary kay, unspeci fied
ME LOGAN BOWMAN 02/05 [facility] PSYCH DIAGNOSTIC EVALUATION [phone] Diagnos is: ICD-10- CM G82.20 Paraple mary kay, unspeci fied
CHIRCOP,AN DESIRE J 02/05 [facility] MEDICAL NUTRITION INDIV IN [phone] Diagnos is: ICD-10- CM Z71.3 Dietary relocation counselor ing and surveil payal<b r/> Katia ARCHER 02/05 [facility] ENTEROSTOM AL THERAPY BY A RE [phone] Diagnos is: ICD-10- CM Z43.3 Encount er for attenti on to colosto my
VIOLA YOON 02/08 [facility] OFFICE O/P EST HI 40-54 MIN [phone] Diagnos is: ICD-10- CM G82.20 Paraple mary kay, unspeci fied
ME LOGAN BOWMAN 02/13 [facility] WHEELCHAIR MNGMENT TRAINING [phone] Diagnos is: ICD-10- CM Z73.6 Limitat ion of activit ies due to disabil ity<br/ > BOUSLOG,RY AN P 02/13 [place] [place] [facility] Outpatient Encounter [phone] 02/19 [facility] [place] [facility] HC PRO PHONE CALL 11-20 MIN 18986-8.61 [phone] Diagnos is: ICD-10- CM Z73.6 Limitat ion of activit ies due to disabil ity<br/ > BOUSLOG,RY AN P 04[facility] [place] [facility] Outpatient Encounter [id number] 04/24 [facility] [place] [facility] Outpatient Encounter [id number] 05/24 [facility] [place] [facility] OFF/OP EST MARCH X REQ PHY/QHP [id number] Diagnos is: ICD-10- CM G82.20 Paraple mary kay, unspeci fied
VIOLA YOON NDJagdish 05/28 [facility] WHEELCHAIR MNGMENT TRAINING [id number] Diagnos is: ICD-10- CM Z73.6 Limitat ion of activit ies due to disabil ity<br/ > BOUSLOG,RY AN P 06/10 [facility] [place] [facility] Outpatient Encounter [id number] 10/28 [facility] [place] [facility] Outpatient Encounter [id number] 11/20 [facility] Social History Combined list of available smoking, tobacco, and other social history from 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 Social History Type Response Date Comment Sourc e Tobacco smoking status [facility] NEVER USED 05/28/20 22 SADAF TREVINO [facility] This section is an empty social history section. DoD Advance Directives List of completed, amended, or rescinded Advance Directives on record at Department of 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 An actual copy of the Directive is not included. Date Advance Directive Provider Source 02/05/2023 ADVANCE DIRECTIVE DISCUSSION GUSTAVO ABAD [facility]
--- OUTSIDE RECORDS SUMMARY | 2024-02-24 12:40 | XMS_ITS | Encounter Summary ---
Author Name Unknown Organization [facility] Address [address], [place] [address] Care Team Providers Care Retail Sales Clerk Name Role Phone Franklin Squires MD Primary Care Provider Encounter Details Date Type Department Care Team (Late st Contact Info) Description 09/17/2013 Correspondence External to External, [place] [address] EMPOWERMENT RULES Social History Tobacco Use Types [...] Provider - 09/17/2013 12:00 AM CST E CAPTAIN documented in this encounter Plan of Treatment Not on file documented as of this encounter Visit Diagnoses Not on filedocumented in this encounter Care Teams Retail Sales Clerk Relationship Specialty Start Date End Date Franklin Squires MD [facility] [address] PCP - General Family Practice 03/08/16 documented as of this encounter
--- OUTSIDE RECORDS SUMMARY | 2024-02-24 12:40 | XMS_ITS | Encounter Summary ---
Author Name Unknown Organization [facility] Address [address], [place] [address] Care Team Providers Care Needle Grinder Name Role Phone Franklin Squires MD Primary Care Provider [phone] Encounter Details Date Type Department Care Team (Late st Contact Info) Description 12/14/2014 [facility] 401 Physical Medicine 401 [facility] [place] [address] May Randle MD [address] [place] [address] DETAILED PRODUCT DESCRIPTION Social History Tobacco Use [...] on filedocumented in this encounter Care Teams Needle Grinder Relationship Specialty Start Date End Date Franklin Squires MD 100 [facility] [place] [address] PCP - General Family Practice 03/08/16 documented as of this encounter
--- OUTSIDE RECORDS SUMMARY | 2024-02-24 12:40 | XMS_ITS | Encounter Summary ---
Author Name Unknown Organization [facility] Address [address] [place] [address] Care Team Providers Care Mechanical Operator Name Role Phone Franklin Squires MD Primary Care Provider [phone] Encounter Details Date Type Department Care Team (Late st Contact Info) Description 06/07/2015 Correspondence [facility] Radiology [address] [place] [address] Radiology, Provider MRI SAFETY SHEET AND COMPATIBILITY [...] on filedocumented in this encounter Care Teams Mechanical Operator Relationship Specialty Start Date End Date Franklin Squires MD [address] [place] [address] [place] [address] PCP - General Family Practice 03/08/16 documented as of this encounter
--- OUTSIDE RECORDS SUMMARY | 2024-02-24 12:40 | XMS_ITS | Encounter Summary ---
Author Name Unknown Organization [facility] Address [address], [place] [address] Care Team Providers Care Health It Specialist Name Role Phone Franklin Squires MD Primary Care Provider [phone] Encounter Details Date Type Department Care Team (Late st Contact Info) Description 08/20/2014 Outside Hospital External to [facility] H/P Social History Tobacco [...] filedocumented in this encounter Care Teams Health It Specialist Relationship Specialty Start Date End Date Franklin Squires MD 100 [facility] [place] [address] PCP - General Family Practice 03/08/16 documented as of this encounter
--- OUTSIDE RECORDS SUMMARY | 2024-02-24 12:40 | XMS_ITS | Encounter Summary ---
Author Name Unknown Organization [facility] Address [address] [address] Care Team Providers Care Sound Tester Name Role Phone Franklin Squires MD Primary [...] on filedocumented in this encounter Care Teams Sound Tester Relationship Specialty Start Date End Date Franklin Squires MD 100 [facility] [place] [address] PCP - General Family Practice 03/08/16 documented as of this encounter
--- OUTSIDE RECORDS SUMMARY | 2024-02-24 12:40 | XMS_ITS | Encounter Summary ---
Author Name Unknown Organization [facility] Address [address], [place] [address] Care Team Providers Care Aircraft Riveter Name Role Phone Franklin Squires MD Primary Care Provider Encounter Details Date Type Department Care Team (Late st Contact Info) Description 03/11/2014 [facility]ence [facility] 401 Interventional Pain Management 401 [facility] [address] Zelalem Cohen, DO [address] [place] [address] EMPI Social History Tobacco Use Types Packs/Day [...] filedocumented in this encounter Care Teams Aircraft Riveter Relationship Specialty Start Date End Date Franklin Squires MD 100 [facility] [place] [address] PCP - General Family Practice 03/08/16 documented as of this encounter
--- OUTSIDE RECORDS SUMMARY | 2024-02-24 12:40 | XMS_ITS | Encounter Summary ---
Author Name Unknown Organization [facility] Address [address], [place] [address] Care Team Providers Care Brim Setter Name Role Phone Franklin Squires MD Primary Care Provider Encounter Details Date Type Department Care Team (Late st Contact Info) Description 11/10/2014 Correspondence [facility] Physical Therapy [address] [place] [address] Trudi Raymundo, PT [address] [place] [address] LETTER OF MEDICAL NECESSITY Social History Tobacco [...] on filedocumented in this encounter Care Teams Brim Setter Relationship Specialty Start Date End Date Franklin Squires MD [address] [facility] [place] [address] PCP - General Family Practice 03/08/16 documented as of this encounter
--- OUTSIDE RECORDS SUMMARY | 2024-02-24 12:40 | XMS_ITS | Encounter Summary ---
Author Name Unknown Organization [facility] Address [address] [address] Care Team Providers Care Store Operations Associate Name Role Phone Franklin Squires MD Primary Care Provider [phone] Encounter Details Date Type Department Care Team (Late st Contact Info) Description 12/11/2017 Correspondence [facility] Physical Medicine 295 [facility]. [place], [place] [id number] May Randle MD [address] [place] [address] [employer] Social History Tobacco Use [...] filedocumented in this encounter Care Teams Store Operations Associate Relationship Specialty Start Date End Date Franklin Squires MD 100 [facility] [place] [address] PCP - General Family Practice 03/08/16 documented as of this encounter
--- OUTSIDE RECORDS SUMMARY | 2024-02-24 12:40 | XMS_ITS | Encounter Summary ---
Author Name Unknown Organization [facility] Address [address] [address] Care Team Providers Care Hotel Guest Service Agent Name Role Phone Franklin Squires MD Primary Care Provider Encounter Details Date Type Department Care Team (Late st Contact Info) Description 12/16/2014 Correspondence External to External, Provider No address [place] [id number] MEDICARE PLAN OF CARE RECERT Social History [...] on filedocumented in this encounter Care Teams Hotel Guest Service Agent Relationship Specialty Start Date End Date Franklin Squires MD 100 [facility] [place] [address] PCP - General Family Practice 03/08/16 documented as of this encounter
--- OUTSIDE RECORDS SUMMARY | 2024-02-24 12:40 | XMS_ITS | Encounter Summary ---
Author Name Unknown Organization [facility] Address [address] [address] Care Team Providers Care Projector Operator Name Role Phone Franklin Squires MD Primary Care Provider [phone] Encounter Details Date Type Department Care Team (Late st Contact Info) Description 07/28/2014 Consent for Procedure/Treatme nt [facility] Department INFORMED CONSENT RECORD Social History [...] on filedocumented in this encounter Care Teams Projector Operator Relationship Specialty Start Date End Date Franklin Squires MD 100 [facility] [place] [address] PCP - General Family Practice 03/08/16 documented as of this encounter
--- OUTSIDE RECORDS SUMMARY | 2024-02-24 12:40 | XMS_ITS ---
Author Name Unknown Organization [facility] Address [address] [address] Care Team Providers Care Wolf Hunter Name Role Phone Franklin Squires MD Primary [...] 06/10/2014 History of anticoagulant therapy 02/17/2014 intermediate current use of anticoagulant therapy 0 02/17/2014 [...] treatments are documented for this patient in [facility]. Treatments may have been administered in another system. Resolved Problems Problem Noted Date Diagnosed Date Resolved Date Gait abnormality 01/17/2012 02/09/2015 Back pain 01/17/2012 02/09/2015 Paraplegia 04/04/2011 02/09/2015 Osteoporosis 03/06/2011 02/09/2015 Urinary tract infection 12/24/200603/11
--- OUTSIDE RECORDS SUMMARY | 2024-02-24 12:40 | XMS_ITS | Encounter Summary ---
Author Name Unknown Organization [facility] Address [address] [place] [address] Care Team Providers Care Tool And Die Assembler Name Role Phone Franklin Squires MD Primary Care Provider [phone] Encounter Details Date Type Department Care Team (Late st Contact Info) Description 01/06/2016 Correspondence [facility] Radiology [address] [place] [address] Radiology, Provider MRI SAFETY SHEET AND COMPATIBILITY [...] on filedocumented in this encounter Care Teams Tool And Die Assembler Relationship Specialty Start Date End Date Franklni Squires MD [address] [place] [address] [place] [address] PCP - General Family Practice 03/08/16 documented as of this encounter
--- OUTSIDE RECORDS SUMMARY | 2024-02-24 12:40 | XMS_ITS | Encounter Summary ---
Author Name Unknown Organization [facility] Address [address] [place] [address] Care Team Providers Care Jigger Machine Operator Name Role Phone Franklin Squires MD Primary Care Provider Encounter Details Date Type Department Care Team (Late st Contact Info) Description 05/04/2014 [facility]ence [facility] 401 Physical Medicine 401 [facility] [place] [address] May Randle MD [address] [place] [address] LETTER OF MEDICAL NECESSITY FOR A WHEELCHAIR [...] on filedocumented in this encounter Care Teams Jigger Machine Operator Relationship Specialty Start Date End Date Franklin Squires MD 100 [facility] [place] [address] PCP - General Family Practice 03/08/16 documented as of this encounter
--- OUTSIDE RECORDS SUMMARY | 2024-02-24 12:40 | XMS_ITS | Encounter Summary ---
Author Name Unknown Organization [facility] Address [address] [address] Care Team Providers Care Athletic Trainer Name Role Phone Franklin Squires MD Primary Care Provider Encounter Details Date Type Department Care Team (Late st Contact Info) Description 07/08/2015 Correspondence [facility] Physical Therapy [address] [place] [address] Trudi Raymundo, PT [address] [place] [address] ADDENDUM FOR LETTER OF MEDICAL NECESSITY Social [...] on filedocumented in this encounter Care Teams Athletic Trainer Relationship Specialty Start Date End Date Franklin Squires MD 100 [facility] [place] [address] PCP - General Family Practice 03/08/16 documented as of this encounter
--- OUTSIDE RECORDS SUMMARY | 2024-02-24 12:40 | XMS_ITS | Encounter Summary ---
Author Name Unknown Organization [facility] Address [address], [place] [address] Care Team Providers Care Burner Machine Operator Name Role Phone Franklin Squires MD Primary Care Provider [phone] Encounter Details Date Type Department Care Team ([facility] st Contact Info) Description 10/26/2013 Correspondence [facility] Physical Therapy [address] [place] [address] Trudi Raymundo, PT [address] [place] [address] LETTER OF MEDICAL NECESSITY Social History Tobacco [...] Raymundo, PT - 10/26/2013 12:00 AM CST TRAFFIC INSTRUCTOR documented in this encounter Plan of Treatment Not on file documented as of this encounter Visit Diagnoses Not on filedocumented in this encounter Care Teams Burner Machine Operator Relationship Specialty Start Date End Date Franklin Squires MD 100 [facility] [place] [address] PCP - General Family Practice 03/08/16 documented as of this encounter
--- OUTSIDE RECORDS SUMMARY | 2024-02-24 12:40 | XMS_ITS | Encounter Summary ---
Author Name Unknown Organization [facility] Address [address] [address] Care Team Providers Care Wheel Grinder Name Role Phone Franklin Squires MD Primary Care Provider Encounter Details Date Type Department Care Team (Late st Contact Info) Description 06/11/2014 Correspondence [facility] 401 Physical Medicine 401 [facility] [place] [place] [address] May Randle MD [address] [place] [address] [facility] Social History Tobacco Use Types [...] on filedocumented in this encounter Care Teams Wheel Grinder Relationship Specialty Start Date End Date Franklin Squires MD 100 [facility] [address] PCP - General Family Practice 03/08/16 documented as of this encounter
--- OUTSIDE RECORDS SUMMARY | 2024-02-24 12:40 | XMS_ITS | Encounter Summary ---
Author Name Unknown Organization [facility] Address [address] [place] [address] Care Team Providers Care Therapist Name Role Phone Franklin Squires MD Primary Care Provider [phone] Encounter Details Date Type Department Care Team (Late st Contact Info) Description 09/07/2014 Correspondence [facility] Radiology [address] [place] [address] Radiology, Provider MRI SAFETY SHEET AND COMPATIBILITY [...] on filedocumented in this encounter Care Teams Therapist Relationship Specialty Start Date End Date Franklin Squires MD [address] [place] [address] [place] [address] PCP - General Family Practice 03/08/16 documented as of this encounter
--- OUTSIDE RECORDS SUMMARY | 2024-02-24 12:40 | XMS_ITS | Encounter Summary ---
Author Name Unknown Organization [facility] Address [address], [place] [address] Care Team Providers Care Waybill Clerk Name Role Phone Franklin Squires MD Primary Care Provider [phone] Encounter Details Date Type Department Care Team (Late st Contact Info) Description 11/23/2015 Correspondence External to External, [place] [address] [facility] Social History Tobacco Use Types Packs/Day Years [...] on filedocumented in this encounter Care Teams Waybill Clerk Relationship Specialty Start Date End Date Franklin Squires MD 100 [facility] [place] [address] PCP - General Family Practice 03/08/16 documented as of this encounter
--- OUTSIDE RECORDS SUMMARY | 2024-02-24 12:40 | XMS_ITS | Encounter Summary ---
Author Name Unknown Organization [facility] Address [address] [address] Care Team Providers Care Steel Analyst Name Role Phone Franklin Squires MD Primary Care Provider Encounter Details Date Type Department Care Team (Late st Contact Info) Description 08/22/2014 Outside Hospital External to [facility] SUMMARY Social History Tobacco Use Types [...] filedocumented in this encounter Care Teams Steel Analyst Relationship Specialty Start Date End Date Franklin Squires MD 100 [facility] [place] [address] PCP - General Family Practice 03/08/16 documented as of this encounter
--- OUTSIDE RECORDS SUMMARY | 2024-02-24 12:40 | XMS_ITS | Encounter Summary ---
Author Name Unknown Organization [facility] Address [address] [address] Care Team Providers Care Residential Instructor Name Role Phone Franklin Squires MD [...] on filedocumented in this encounter Care Teams Residential Instructor Relationship Specialty Start Date End Date Franklin Squires MD 100 [facility] [place] [address] PCP - General Family Practice 03/08/16 documented as of this encounter
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
--- OUTSIDE RECORDS SUMMARY | 2024-02-24 12:40 | XMS_ITS | Encounter Summary ---
Author Name Unknown Organization [facility] Address [address] [place] [address] Care Team Providers Care Cathead Operator Name Role Phone Franklin Squires MD Primary Care Provider [phone] Encounter Details Date Type Department Care Team (Late st Contact Info) Description 07/23/2013 [facility] 401 Interventional Pain Management 401 [facility] [place] [address] Zelalem Cohen DO [address] [place] [address] EXPRESS SCRIPT Social History Tobacco Use Types [...] Cohen MD - 07/23/2013 12:00 AM CDT WARE TEST ANALYST documented in this encounter Plan of Treatment Not on file documented as of this encounter Visit Diagnoses Not on filedocumented in this encounter Care Teams Cathead Operator Relationship Specialty Start Date End Date Franklin Squires MD 100 [facility] [place] [address] PCP - General Family Practice 03/08/16 documented as of this encounter
--- OUTSIDE RECORDS SUMMARY | 2024-02-24 12:40 | XMS_ITS | Encounter Summary ---
Author Name Unknown Organization [facility] Address [address] [address] Care Team Providers Care Internet Specialist Name Role Phone Franklin Squires MD Primary Care Provider Encounter Details Date Type Department Care Team (Late st Contact Info) Description 04/20/[address] [address] Radiology, Provider MRI SAFETY SHEET AND COMPATIBILITY [...] filedocumented in this encounter Care Teams Internet Specialist Relationship Specialty Start Date End Date Franklin Squires MD 100 [facility] [place] [address] PCP - General Family Practice 03/08/16 documented as of this encounter
--- OUTSIDE RECORDS SUMMARY | 2024-02-24 12:40 | XMS_ITS | Encounter Summary ---
Author Name Unknown Organization [facility] Address [address] [address] Care Team Providers Care Benchroom Shop Optician Name Role Phone Franklin Squires MD Primary [...] on filedocumented in this encounter Care Teams Benchroom Shop Optician Relationship Specialty Start Date End Date Franklin Squires MD 100 [facility] [place] [address] PCP - General Family Practice 03/08/16 documented as of this encounter
--- OUTSIDE RECORDS SUMMARY | 2024-02-24 12:40 | XMS_ITS | Encounter Summary ---
Author Name Unknown Organization [facility] Address [address], [place] [address] Care Team Providers Care Insert Cutter Name Role Phone Franklin Squires MD Primary Care Provider [phone] Encounter Details Date Type Department Care Team (Late st Contact Info) Description 02/05/2014 Correspondence [facility] Physical Therapy [address] [place] [address] Trudi Raymundo, PT [address] [place] [address] LETTER OF MEDICAL NECESSITY FOR A WHEELCHAIR [...] on filedocumented in this encounter Care Teams Insert Cutter Relationship Specialty Start Date End Date Franklin Squires MD 100 [facility] [address] PCP - General Family Practice 03/08/16 documented as of this encounter
--- OUTSIDE RECORDS SUMMARY | 2024-02-24 12:40 | XMS_ITS | Encounter Summary ---
Author Name Unknown Organization [facility] Address [address], [place] [address] Care Team Providers Care Dampener Name Role Phone Franklin Squires MD Primary Care Provider [phone] Encounter Details Date Type Department Care Team (Late st Contact Info) Description 07/28/2014 Outside Hospital External to External, Provider No address [address] ER VISIT/TRANSFER Social History Tobacco [...] on filedocumented in this encounter Care Teams Dampener Relationship Specialty Start Date End Date Franklin Squires MD 100 [facility] [place] [address] PCP - General Family Practice 03/08/16 documented as of this encounter
--- OUTSIDE RECORDS SUMMARY | 2024-02-24 12:40 | XMS_ITS | Encounter Summary ---
Author Name Unknown Organization [facility] Address [address], [place] [address] Care Team Providers Care Environment Artist Name Role Phone Franklin Squires MD Primary Care Provider [phone] Encounter Details Date Type Department Care Team (Latest Contact Info) Description 06/04/2014 [facility] 401 Interventional Pain Management 401 [place] [address] Zelalem Cohen, DO [address] [place] [address] MEDICAID PT INFORMATION EMPI RECOVERY Social History [...] on filedocumented in this encounter Care Teams Environment Artist Relationship Specialty Start Date End Date Franklin Squires MD 100 [facility] [place] [address] PCP - General Family Practice 03/08/16 documented as of this encounter
--- OUTSIDE RECORDS SUMMARY | 2024-02-24 12:40 | XMS_ITS | Encounter Summary ---
Author Name Unknown Organization [facility] Address [address], [place] [address] Care Team Providers Care Urgent Care Technician Name Role Phone Franklin Squires MD Primary Care Provider [phone] Encounter Details Date Type Department Care Team ([facility] st Contact Info) Description 02/09/2016 [facility] 401 NeuroSurgery 401 [facility]. [place], [place] [id number] Jodi Aguila PA-C [address] [place] [address] PATIENT LIFT PRESCRIPTION Social History Tobacco Use [...] on filedocumented in this encounter Care Teams Urgent Care Technician Relationship Specialty Start Date End Date Franklin Squires MD 100 [facility] [place] [address] PCP - General Family Practice 03/08/16 documented as of this encounter
--- OUTSIDE RECORDS SUMMARY | 2024-02-24 12:40 | XMS_ITS | Encounter Summary ---
Author Name Unknown Organization [facility] Address [address], [place] [address] Care Team Providers Care Archives Specialist Name Role Phone Franklin Squires MD Primary Care Provider [phone] Encounter Details Date Type Department Care Team (Late st Contact Info) Description 12/16/2013 Correspondence [facility] Radiology [address] [place] [address] Radiology, Provider MRI SAFETY SHEET AND COMPATIBILITY [...] Radiology, Provider - 12/16/2013 12:00 AM CST RINT ANALYST documented in this encounter Plan of Treatment Not on file documented as of this encounter Visit Diagnoses Not on filedocumented in this encounter Care Teams Archives Specialist Relationship Specialty Start Date End Date Franklin Squires MD 100 [facility] [place] [address] PCP - General Family Practice 03/08/16 documented as of this encounter
--- OUTSIDE RECORDS SUMMARY | 2024-02-24 12:40 | XMS_ITS | Encounter Summary ---
Author Name Unknown Organization [facility] Address [address], [place] [address] Care Team Providers Care Senior Pricing Analyst Name Role Phone Franklin Squires MD Primary Care Provider [phone] Encounter Details Date Type Department Care Team (Late st Contact Info) Description 08/20/2014 Outside Hospital External to [facility]/P Social History Tobacco Use Types Packs/Day [...] filedocumented in this encounter Care Teams Senior Pricing Analyst Relationship Specialty Start Date End Date Franklin Squires MD 100 [facility] [address] PCP - General Family Practice 03/08/16 documented as of this encounter
--- OUTSIDE RECORDS SUMMARY | 2024-02-24 12:41 | XMS_ITS | Encounter Summary ---
Author Name Unknown Organization [facility] Address [address], [place] [address] Care Team Providers Care Roping Machine Tender Name Role Phone Franklin Squires MD Primary Care Provider Encounter Details Date Type Department Care Team (Late st Contact Info) Description 11/13/2012 Correspondence [facility] Radiology [address] [place] [address] Radiology, Provider MRI SAFETY SHEET AND COMPATIBILITY [...] RADIOLOGY, PROVIDER - 11/13/2012 12:00 AM CST E DRIVER documented in this encounter Plan of Treatment Not on file documented as of this encounter Visit Diagnoses Not on filedocumented in this encounter Care Teams Roping Machine Tender Relationship Specialty Start Date End Date Franklin Squires MD 100 [facility] [place] [address] PCP - General Family Practice 03/08/16 documented as of this encounter
--- OUTSIDE RECORDS SUMMARY | 2024-02-24 12:41 | XMS_ITS | Encounter Summary ---
Author Name Unknown Organization [facility] Address [address] [place] [address] Care Team Providers Care Console Operator Name Role Phone Franklin Squires MD Primary Care Provider Encounter Details Date Type Department Care Team (Late st Contact Info) Description 01/08/2013 Scanned History External to Transferred Record, Provider [facility] Social History Tobacco Use Types Packs/Day Years [...] on filedocumented in this encounter Care Teams Console Operator Relationship Specialty Start Date End Date Franklin Squires MD 100 [facility] [place] [address] PCP - General Family Practice 03/08/16 documented as of this encounter
--- OUTSIDE RECORDS SUMMARY | 2024-02-24 12:41 | XMS_ITS | Encounter Summary ---
Author Name Unknown Organization [facility] Address [address], [place] [address] Care Team Providers Care Lpn Private Duty Name Role Phone Franklin Squires MD Primary Care Provider [phone] Encounter Details Date Type Department Care Team (Late st Contact Info) Description 04/24/2012 Correspondence [facility] Radiology [address] [place] [address] Radiology, Provider MRI SAFETY SHEET AND COMPATIBILITY [...] on filedocumented in this encounter Care Teams Lpn Private Duty Relationship Specialty Start Date End Date Franklin Squires MD 100 [facility] [address] PCP - General Family Practice 03/08/16 documented as of this encounter
== END 2024-02-24 12:38 | disposition home or self-care (01) ==
LOC: WOUND 12:37
PROVIDERS: PCP Family Medicine; Visit Provider Nurse Practitioner Family
DX: L89.324 Pressure ulcer of left buttock, stage 4 (principal); G82.50 Quadriplegia, unspecified; Z99.3 Dependence on wheelchair
CPT/HCPCS: 11042; 97605

== ENCOUNTER 2024-03-02 12:42 | Outpatient (CLI) | payer MEDICARE, OTHER, SELFPAY ==
--- OUTSIDE RECORDS SUMMARY | 2024-03-02 12:44 | XMS_ITS | Continuity of Care Document ---
Author Name [facility] Organization [facility] Care Team Providers Care Supervisor Alteration Workroom Name Role Phone [facility] Unavailable Unavailable Problems Combined list of problems from 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 It does not include entries that were removed or entered in error. Problem Status Onset Date Problem Type Date of Resolution Comments Source Abnormal liver function Active Condition [facility] Anemia ([facility] 484283053) Active Condition [facility] Anxiety ([facility] 29841190) Active Condition [facility] Autonomic dysreflexia Active Condition [facility] Chronic Pain Syndrome ([facility] 348375393) Active Condition [facility] Colostomy present Active Condition [facility] Constipation ([facility] 17251171) Active Condition [facility] Continuous opioid dependence Active Condition [facility] COPD - Chronic Obstructive Pulmonary Disease ([facility] 79698304) Active Condition [facility] Dementia Active Condition [facility] Depression ([facility] 51016508) Active Condition [facility] Diabetes Mellitus Type 2 ([facility] 26477601) Active Condition [facility] Ependymoma of spinal cord Active Condition [facility] Hearing Loss ([facility] 09879044) Active Condition [facility] History of Deep Vein Thrombosis ([facility] 455693132) Active Condition [facility] History of pressure injury Active Condition [facility] HTN - Hypertension ([facility] 25290514) Active Condition [facility] Hyperlipidemia ([facility] 58329008) Active Condition [facility] Hyponatremia Active [facility] Long-term current use of anticoagulant Active Condition [facility] Neurogenic Bladder ([facility] 408963774) Active Condition [facility] Neurogenic bowel Active Condition [facility] Osteoporosis ([facility] 14848985) Active Condition [facility] Paraplegia Active Condition [facility] Spasticity Active Condition [facility] Suprapubic urinary catheter in situ Active Condition [facility] Supraventricular tachycardia Active Condition [facility] Tinnitus ([facility] 80263768) Active Condition [facility] Vitamin D Deficiency ([facility] 4263908) Active Condition [facility] Diagnosis: ICD-10-CM Z73.6 Limitation of activities due to disability Active Diagnosis [facility] Diagnosis: ICD-10-CM G82.20 Paraplegia, unspecified Active Diagnosis [facility] Diagnosis: ICD-10-CM Z43.3 Encounter for attention to colostomy Active Diagnosis [facility] Diagnosis: ICD-10-CM Z71.3 Dietary counseling and surveillance Active Diagnosis [facility] Diagnosis: ICD-10-CM F32.A Depression, unspecified Active Diagnosis [facility] Medications Combined list of outpatient medications from Department of Defense and [facility] Affairs facilities.Medications provided include 1) outpatient medications from the last 15 months, and 2) patient-reported medications. Medication Details Route Status Patient Instructions Prescription Expires Prescription Number Last Dispense Date Ordering Provider Order Date Order Qty Source ACETAMINOPH EN 500MG TAB TAKE TWO TABLETS BY MOUTH THREE TIMES A DAY NEEDED ORALLY ACTIVE Jagdish BARRETT N [address] [facility] AMLODIPINE BESYLATE (AMLODIPINE BESYLATE), 5 MG, TABLET, ORAL, [employer] 1000 ea. BOTTLE Active [id number] 4 2023 90 Pharmac y Data Transac tion Service Facilit y AMLODIPINE BESYLATE (amlodipine besylate), 5 MG, TABLET, ORAL, [employer], 1000 ea. BOTTLE Active [id number] 4 2023 90 Pharmac y Data Transac tion Service Facilit y AMLODIPINE BESYLATE 2.5MG TAB TAKE TWO TABLETS BY MOUTH EVERY MORNING ORALLY ACTIVE Jagdish BARRETT [address] [facility] AMOX TR-POTASSIU M CLAVULANATE (AMOXICILLI N/POTASSIUM CLAV), 875-125 MG, TABLET, ORAL, [employer] RUST, 20 ea. BOTTLE Active [id number] 2022 14 Pharmac y Data Transac tion Service Facilit y AMOXICILLIN -CLAVULANAT E POTASS (amoxicilli n/potassium clavulanate ), 875-125 MG, TABLET, ORAL, eRALOS3,, 20 ea. BOTTLE Active [id number] 2023 56 Pharmac y Data Transac tion Service Facilit y ARIPIPRAZOL E (aripiprazo le), 2 MG, TABLET, ORAL, XLCARE PHARMACE, 500 ea. BOTTLE Active [id number] 2023 180 Pharmac y Data Transac tion Service Facilit y ARIPIPRAZOL E TAB TAKE 2MG BY MOUTH TWICE A DAY ORALLY ACTIVE Jey HANSON M 2021 [facility] CBTATI ATIVAN (LORAZEPAM) , 0.5 MG, TABLET, ORAL, VALEANT, 100 ea. BOTTLE Cancele d [id number] : 2023 0 Pharmac y Data Transac tion Service Facilit y ATORVASTATI N CA 80MG TAB TAKE ONE-HALF TABLET BY MOUTH EVERY DAY ORALLY ACTIVE Jey HANSON 2021 [facility] ATORVASTATI N CALCIUM (atorvastat in calcium), 40 MG, TABLET, ORAL, BIOCON PHARMA I, 1000 ea. BOTTLE Active [id number] 2023 90 Pharmac y Data Transac tion Service Facilit y BACLOFEN (baclofen), 20 MG, TABLET, ORAL, [employer]ARM., 1000 ea. BOTTLE Active [id number] 2023 540 Pharmac y Data Transac tion Service Facilit y BACLOFEN 20MG TAB TAKE TWO TABLETS BY MOUTH THREE TIMES A DAY ORALLY ACTIVE Jagdish BARRETT [address] [facility] BUPROPION HCL 150MG 12HR TAB,SA TAKE ONE TABLET BY MOUTH TWICE A DAY ORALLY ACTIVE Jey HANSON 2021 [facility] BUPROPION HCL SR (bupropion HCl), 150 MG, TAB SR 12H, ORAL, PAVEL PHARMACEU, 60 ea. BOTTLE Active [id number] 2023 180 Pharmac y Data Transac tion Service Facilit y CEPHALEXIN 250MG CAP TAKE 1 CAPSULE BY MOUTH EVERY DAY ORALLY ACTIVE Jey HANSON 2021 [facility] CHOLECALCIF GILSON 25MCG (1,000UNIT) TAB TAKE ONE TABLET BY MOUTH EVERY DAY ORALLY ACTIVE Jey HANSON 2021 [facility] CIPROFLOXAC IN HCL (CIPROFLOXA SHAR HCL), 750 MG, TABLET, ORAL, AUROB[employer]O PHARM, 50 ea. BOTTLE Active [id number] 2023 70 Pharmac y Data Transac tion Service Facilit y DONEPEZIL HCL (DONEPEZIL HCL), 5 MG, TABLET, ORAL, [employer] 1000 ea. BOTTLE Cancele d [id number] : 2023 0 Pharmac y Data Transac tion Service Facilit y DONEPEZIL HCL (DONEPEZIL HCL), 5 MG, TABLET, ORAL, [employer] 1000 ea. BOTTLE Active [id number] 2023 90 Pharmac y Data Transac tion Service Facilit y DONEPEZIL HCL 10MG TAB TAKE ONE-HALF TABLET BY MOUTH EVERY DAY ORALLY ACTIVE Jey HANSON 2021 [facility] DULOXETINE HCL (duloxetine HCl), 60 MG, CAPSULE DR, ORAL, [employer] 1000 ea. BOTTLE Active [id number] 2023 180 Pharmac y Data Transac tion Service Facilit y DULOXETINE HCL 30MG CAP,EC TAKE 2 CAPSULES BY MOUTH TWICE A DAY ORALLY ACTIVE Jey HANSON 2021 [facility] FAMOTIDINE 20MG TAB TAKE ONE TABLET BY MOUTH TWICE A DAY ORALLY ACTIVE Jey HANSON 2021 [facility] FUROSEMIDE (furosemide ), 40 MG, TABLET, ORAL, [employer], 1000 ea. BOTTLE Active [id number] 2023 180 Pharmac y Data Transac tion Service Facilit y FUROSEMIDE 40MG TAB TAKE ONE TABLET BY MOUTH TWICE A DAY ORALLY ACTIVE Jey HANSON 2021 [facility] GABAPENTIN (gabapentin ), 400 MG, CAPSULE, ORAL, [employer] 500 ea. BOTTLE Active [id number] 2023 270 Pharmac y Data Transac tion Service Facilit y GABAPENTIN 400MG CAP TAKE 1 CAPSULE BY MOUTH THREE TIMES A DAY ORALLY ACTIVE Jey HANSON 2021 [facility] LORAZEPAM (lorazepam) , 0.5 MG, TABLET, ORAL, [employer]ADING [employer]ARMA, 1000 ea. BOTTLE Active [id number] 2023 120 Pharmac y Data Transac tion Service Facilit y LORAZEPAM (lorazepam) , 0.5 MG, TABLET, ORAL, LE[employer] PHARMA, 1000 ea. BOTTLE Active [id number] 2023 120 Pharmac y Data Transac tion Service Facilit y LORAZEPAM (lorazepam) , 0.5 MG, TABLET, ORAL, [employer]ARMA, 1000 ea. BOTTLE Active [id number] 2023 120 Pharmac y Data Transac tion Service Facilit y LORAZEPAM 0.5MG TAB TAKE ONE TABLET BY MOUTH THREE TIMES A DAY AND TAKE TWO TABLETS BY MOUTH AT BEDTIME ORALLY ACTIVE Jagdish BARRETT N [address] [facility] MILK OF MAGNESIA TAKE 30ML BY MOUTH EVERY DAY NEEDED ORALLY ACTIVE Jey HANSON 2021 [facility] MULTIVITAMI NS CAP/TAB TAKE ONE TABLET BY MOUTH EVERY DAY ORALLY ACTIVE Jey HANSON 2021 [facility] CBTATI NALOXONE HCL 4MG/SPRAY SOLN,SPRAY, NASAL SPRAY 1 DOSE IN ONE NOSTRIL DIRECTED PRN NOSTRI L ACTIVE Jagdish BARRETT N 2022 [employer] [facility] OXYCODONE HCL (OXYCODONE HCL), 10 MG, TABLET, ORAL, [employer] 100 ea. BOTTLE Active [id number] 2023 120 Pharmac y Data Transac tion Service Facilit y OXYCODONE HCL (OXYCODONE HCL), 10 MG, TABLET, ORAL, [employer] 100 ea. BOTTLE Active [id number] 2023 120 Pharmac y Data Transac tion Service Facilit y OXYCODONE HCL (OXYCODONE HCL), 10 MG, TABLET, ORAL, [employer] 100 ea. BOTTLE Active [id number] 2023 120 Pharmac y Data Transac tion Service Facilit y OXYCODONE HCL (OXYCODONE HCL), 10 MG, TABLET, ORAL, [employer] 100 ea. BOTTLE Active [id number] 2022 120 Pharmac y Data Transac tion Service Facilit y OXYCODONE HCL 5MG TAB TAKE TWO TABLETS BY MOUTH FOUR TIMES A DAY ORALLY ACTIVE Jagdish BARRETT [address] [facility] POTASSIUM CHLORIDE (potassium chloride), 10 MEQ, TAB ER PRT, ORAL, [employer]ACE, 100 ea. BOTTLE Active [id number] 2023 180 Pharmac y Data Transac tion Service Facilit y POTASSIUM CHLORIDE (potassium chloride), 20 MEQ, TAB ER PRT, ORAL, [employer]ACE, 100 ea. BOTTLE Active [id number] 3 2023 90 Pharmac y Data Transac tion Service Facilit y POTASSIUM CHLORIDE 20MEQ TAB,SA (DISPERSIBL E) TAKE ONE TABLET BY MOUTH TWICE A DAY ORALLY ACTIVE Jey HANSON 2021 [facility] CBTATI SANTYL (collagenas e Clostridium histolyticu m), 250 UNIT/G, OINT. (G), TOPICAL, WHITLOCK&N/UNI LUIS, 30 g TUBE Cancele d [id number] : 2023 0 Pharmac y Data Transac tion Service Facilit y WARFARIN SODIUM (warfarin sodium), 5 MG, TABLET, ORAL, [employer] 1000 ea. BOTTLE Cancele d [id number] : 2022 0 Pharmac y Data Transac tion Service Facilit y WARFARIN SODIUM (WARFARIN SODIUM), 5 MG, TABLET, ORAL, [employer]EVA RUST, 1000 ea. BOTTLE Active [id number] 2023 12 Pharmac y Data Transac tion Service Facilit y WARFARIN SODIUM (WARFARIN SODIUM), 5 MG, TABLET, ORAL, [employer], 1000 ea. BOTTLE Active [id number] 2023 40 Pharmac y Data Transac tion Service Facilit y WARFARIN SODIUM (WARFARIN SODIUM), 5 MG, TABLET, ORAL, [employer], 1000 ea. BOTTLE Cancele d [id number] : 2022 0 Pharmac y Data Transac tion Service Facilit y WARFARIN SODIUM (warfarin sodium), 7.5 MG, TABLET, ORAL, [employer] [place], 100 ea. BOTTLE Active [id number] 2023 51 Pharmac y Data Transac tion Service Facilit y WARFARIN SODIUM (warfarin sodium), 7.5 MG, TABLET, ORAL, [employer] [place], 100 ea. BOTTLE Active [id number] 2023 78 Pharmac y Data Transac tion Service Facilit y WARFARIN TAB TAKE 5MG BY MOUTH SUN/THUR S AND TAKE 7.5MG BY MOUTH ALL OTHER DAYS ORALLY ACTIVE Jadgish BARRETT [address] [facility] Allergies, Adverse Reactions, Alerts Combined list of allergies from 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 It does not include entries that were removed or entered in error. Substance Category Reaction Severity Reaction type Status Date Reported Comments Source AMOXICILLIN Propensity to adverse reactions to drug (finding) Eruption active 2 [facility] METOLAZONE Propensity to adverse reactions to drug (finding) Itching active 2 [facility] MORPHINE Propensity to adverse reactions to drug (finding) Delirium active 2 [facility] PIPERACILLIN Propensity to adverse reactions to drug (finding) Eruption active 2 [facility] SULFA DRUGS Propensity to adverse reactions to drug (finding) Eruption active 2 [facility] TAZOBACTAM SODIUM Propensity to adverse reactions to drug (finding) Eruption active 2 [facility] Immunizations Combined list of available immunizations from the 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 Immunization Series Date Given Administered By Site Reaction Lot Number CVX Code Drug Senior Quality Analyst Status Comments Source INFLUENZA, UNSPECIFIED FORMULATION 2021 88 complet ed 's recall [facility] TD (ADULT), 5 LF TETANUS TOXOID, PRESERVATIVE FREE, ADSORBED 2021 113 complet ed [facility] INFLUENZA, UNSPECIFIED FORMULATION [address] [facility] COVID-19 (PFIZER), MRNA, LNP-S, PF, 30 MCG/0.3 ML DOSE [address] [facility] COVID-19 (PFIZER), MRNA, LNP-S, PF, 30 MCG/0.3 ML DOSE 2 [address] [facility] COVID-19 (PFIZER), MRNA, LNP-S, PF, 30 MCG/0.3 ML DOSE 1 [address] [facility] PNEUMOCOCCAL CONJUGATE PCV 13 2014 133 complet ed [facility] ZOSTER LIVE 2012 121 complet ed [facility] PNEUMOCOCCAL POLYSACCHARID E PPV23 [address] [facility] TDAP 2010 115 complet ed [facility] Results Combined list of recent [...] Feb 05, 2023 03:10 PM Reporting Lab: [facility] [address] Performing Lab: [facility] [address] [place] [facility] CYSTATIN C WITH EGFR CYSTATIN C AND GLOMERULAR FILTRATION RATE BY CYSTATIN C-BASED FORMULA PANEL - SERUM OR PLASMA 53 60 02/13 L Specimen Type: PLASMA No comment entered. Ordering Provider: ANKUSH BOWMAN Report Released Date/Time: Feb 05, 2023 03:10 PM Reporting Lab: [facility] [address] Performing Lab: [facility] [address] [place] [facility] BASIC METABOLI C PANEL+MG CREATININE [MASS/VOLU ME] IN SERUM OR PLASMA 0.7 0.7 - 1.2 02/13 Specimen Type: PLASMA No comment entered. Ordering Provider: ANKUSH BOWMAN Report Released Date/Time: Feb 05, 2023 03:10 PM Reporting Lab: [facility] [address] Performing Lab: [facility] [address] [place] [facility] BASIC METABOLI C PANEL+MG UREA NITROGEN [MASS/VOLU ME] IN SERUM OR PLASMA 15 8 - 26 02/13 Specimen Type: PLASMA No comment entered. Ordering Provider: ANKUSH BOWMAN Report Released Date/Time: Feb 05, 2023 03:10 PM Reporting Lab: [facility] [address] Performing Lab: [facility] [address] [place] [facility] BASIC METABOLI C PANEL+MG GLUCOSE [MASS/VOLU ME] IN SERUM OR PLASMA 140 70 - 100 02/13 H Specimen Type: PLASMA No comment entered. Ordering Provider: ANKUSH BOWMAN Report Released Date/Time: Feb 05, 2023 03:10 PM Reporting Lab: [facility] [address] Performing Lab: [facility] [address] [place] [facility] BASIC METABOLI C PANEL+MG SODIUM [MOLES/VOL UME] IN SERUM OR PLASMA 135 136 - 145 02/13 L Specimen Type: PLASMA No comment entered. Ordering Provider: ANKUSH BOWMAN Report Released Date/Time: Feb 05, 2023 03:10 PM Reporting Lab: [facility] [address] Performing Lab: [facility] [address] [place] [facility] BASIC METABOLI C PANEL+MG POTASSIUM [MOLES/VOL UME] IN SERUM OR PLASMA 4.0 3.5 - 5.1 02/13 Specimen Type: PLASMA No comment entered. Ordering Provider: ANKUSH BOWMAN Report Released Date/Time: Feb 05, 2023 03:10 PM Reporting Lab: [facility] [address] Performing Lab: [facility] [address] [place] [facility] BASIC METABOLI C PANEL+MG CHLORIDE [MOLES/VOL UME] IN SERUM OR PLASMA 99 98 - 107 02/13 Specimen Type: PLASMA No comment entered. Ordering Provider: ANKUSH BOWMAN Report Released Date/Time: Feb 05, 2023 03:10 PM Reporting Lab: [facility] [address] Performing Lab: [facility] [address] [place] [facility] BASIC METABOLI C PANEL+MG CARBON DIOXIDE, TOTAL [MOLES/VOL UME] IN SERUM OR PLASMA 29 - 29 02/13 Specimen Type: PLASMA No comment entered. Ordering Provider: ANKUSH BOWMAN Report Released Date/Time: Feb 05, 2023 03:10 PM Reporting Lab: [facility] [address] Performing Lab: [facility] [phone] [place] [facility] BASIC METABOLI C PANEL+MG CALCIUM [MASS/VOLU ME] IN SERUM OR PLASMA 9.2 8.4 - 10.2 02/13 Specimen Type: PLASMA No comment entered. Ordering Provider: ANKUSH BOWMAN Report Released Date/Time: Feb 05, 2023 03:10 PM Reporting Lab: [facility] [address] Performing Lab: [facility] [address] [place] [facility] BASIC METABOLI C PANEL+MG MAGNESIUM [MASS/VOLU ME] IN SERUM OR PLASMA 2.0 1.6 - 2.6 02/13 Specimen Type: PLASMA No comment entered. Ordering Provider: ANKUSH BOWMAN Report Released Date/Time: Feb 05, 2023 03:10 PM Reporting Lab: [facility] [address] Performing Lab: [facility] [address] [place] [facility] BASIC METABOLI C PANEL+MG ANION GAP IN SERUM OR PLASMA 7 5 - 15 02/13 Specimen Type: PLASMA No comment entered. Ordering Provider: ANKUSH BOWMAN Report Released Date/Time: Feb 05, 2023 03:10 PM Reporting Lab: [facility] [address] Performing Lab: [facility] [address] [place] [facility] BASIC METABOLI C PANEL+MG GLOMERULAR FILTRATION RATE/1.73 SQ M.PREDICTE D [VOLUME RATE/AREA] IN SERUM, PLASMA OR BLOOD BY CREATININE -BASED FORMULA (CKD-EPI) >90 60 02/13 Specimen Type: PLASMA No comment entered. Ordering Provider: ANKUSH BOWMAN Report Released Date/Time: Feb 05, 2023 03:10 PM Reporting Lab: [facility] [address] Performing Lab: [facility] [address] [place] [facility] URINALYS IS COLOR OF URINE YELLOW 10/08 Specimen Type: URINE No comment entered. Ordering Provider: ANKUSH BOWMAN Report Released Date/Time: Sep 24, 2022 01:55 PM Reporting Lab: [facility] [address] Performing Lab: [facility] [address] [place] [facility] URINALYS IS SPECIFIC GRAVITY OF URINE 1.023 1.003 - 1.035 10/08 Specimen Type: URINE No comment entered. Ordering Provider: ANKUSH BOWMAN Report Released Date/Time: Sep 24, 2022 01:55 PM Reporting Lab: [facility] [address] Performing Lab: [facility] [address] [place] [facility] URINALYS IS BILIRUBIN. TOTAL [PRESENCE] IN URINE BY TEST STRIP NEGATIVE 10/08 Specimen Type: URINE No comment entered. Ordering Provider: ANKUSH BOWMAN Report Released Date/Time: Sep 24, 2022 01:55 PM Reporting Lab: [facility] [address] Performing Lab: [facility] [address] [place] [facility] URINALYS IS KETONES [MASS/VOLU ME] IN URINE BY TEST STRIP NEGATIVE 10/08 Specimen Type: URINE No comment entered. Ordering Provider: ANKUSH BOWMAN Report Released Date/Time: Sep 24, 2022 01:55 PM Reporting Lab: [facility] [address] Performing Lab: [facility] [address] [place] [facility] URINALYS IS GLUCOSE [MASS/VOLU ME] IN URINE BY TEST STRIP NEGATIVE <30 - 30 10/08 Specimen Type: URINE No comment entered. Ordering Provider: ANKUSH BOWMAN Report Released Date/Time: Sep 24, 2022 01:55 PM Reporting Lab: [facility] [address] Performing Lab: [facility] [address] [place] [facility] URINALYS IS PROTEIN [MASS/VOLU ME] IN URINE BY TEST STRIP 30 <20 - 20 10/08 Specimen Type: URINE No comment entered. Ordering Provider: ANKUSH BOWMAN Report Released Date/Time: Sep 24, 2022 01:55 PM Reporting Lab: [facility] [address] Performing Lab: [facility] [address] [place] [facility] URINALYS IS PH OF URINE BY TEST STRIP 7.5 5.0 - 8.0 10/08 Specimen Type: URINE No comment entered. Ordering Provider: ANKUSH BOWMAN Report Released Date/Time: Sep 24, 2022 01:55 PM Reporting Lab: [facility] [address] Performing Lab: [facility] [address] [place] [facility] URINALYS IS LEUKOCYTES [#/AREA] IN URINE SEDIMENT BY MICROSCOPY HIGH POWER FIELD >180 0 - 7 10/08 H Specimen Type: URINE No comment entered. Ordering Provider: ANKUSH BOWMAN Report Released Date/Time: Sep 24, 2022 01:55 PM Reporting Lab: [facility] [address] Performing Lab: [facility] [address] [place] [facility] URINALYS IS BACTERIA [PRESENCE] IN URINE SEDIMENT BY LIGHT MICROSCOPY MANY 10/08 Specimen Type: URINE No comment entered. Ordering Provider: ANKUSH BOWMAN Report Released Date/Time: Sep 24, 2022 01:55 PM Reporting Lab: [facility] [address] Performing Lab: [facility] [address] [place] [facility] URINALYS IS ERYTHROCYT ES [#/AREA] IN URINE SEDIMENT BY MICROSCOPY HIGH POWER FIELD 33 0 - 3 10/08 H Specimen Type: URINE No comment entered. Ordering Provider: ANKUSH BOWMAN Report Released Date/Time: Sep 24, 2022 01:55 PM Reporting Lab: [facility] [address] Performing Lab: [facility] [address] [place] [facility] URINALYS IS APPEARANCE OF URINE EX.TURBI D 10/08 Specimen Type: URINE No comment entered. Ordering Provider: ANKUSH BOWMAN Report Released Date/Time: Sep 24, 2022 01:55 PM Reporting Lab: [facility] [address] Performing Lab: [facility] [address] [place] [facility] URINALYS IS EPITHELIAL CELLS.SQUA MOUS [#/AREA] IN URINE SEDIMENT BY MICROSCOPY HIGH POWER FIELD 1 10/08 Specimen Type: URINE No comment entered. Ordering Provider: ANKUSH BOWMAN Report Released Date/Time: Sep 24, 2022 01:55 PM Reporting Lab: [facility] [address] Performing Lab: [facility] [address] [place] [facility] URINALYS IS HEMOGLOBIN [PRESENCE] IN URINE BY TEST STRIP 1+ 10/08 Specimen Type: URINE No comment entered. Ordering Provider: ANKUSH BOWMAN Report Released Date/Time: Sep 24, 2022 01:55 PM Reporting Lab: [facility] [address] Performing Lab: [facility] [address] [place] [facility] URINALYS IS NITRITE [PRESENCE] IN URINE BY TEST STRIP NEGATIVE 10/08 Specimen Type: URINE No comment entered. Ordering Provider: ANKUSH BOWMAN Report Released Date/Time: Sep 24, 2022 01:55 PM Reporting Lab: [facility] [address] Performing Lab: [facility] [address] [place] [facility] URINALYS IS LEUKOCYTE CLUMPS [#/VOLUME] IN URINE BY AUTOMATED COUNT PRESENT 10/08 Specimen Type: URINE No comment entered. Ordering Provider: ANKUSH BOWMAN Report Released Date/Time: Sep 24, 2022 01:55 PM Reporting Lab: [facility] [address] Performing Lab: [facility] [address] [place] [facility] URINALYS IS LEUKOCYTE ESTERASE [PRESENCE] IN URINE BY TEST STRIP 500 10/08 Specimen Type: URINE No comment entered. Ordering Provider: ANKUSH BOWMAN Report Released Date/Time: Sep 24, 2022 01:55 PM Reporting Lab: [facility] [address] Performing Lab: [facility] [address] [place] [facility] ALBUMIN ALBUMIN [MASS/VOLU ME] IN SERUM OR PLASMA 4.2 3.5 - 5.2 10/08 Specimen Type: PLASMA No comment entered. Ordering Provider: ANKUSH BOWMAN Report Released Date/Time: Sep 24, 2022 01:55 PM Reporting Lab: [facility] [address] Performing Lab: [facility] [address] [place] [facility] PRE-ALBU MIN PREALBUMIN [MASS/VOLU ME] IN SERUM OR PLASMA 28.4 14.0 - 45.0 10/08 Specimen Type: SERUM No comment entered. Ordering Provider: ANKUSH OBWMAN Report Released Date/Time: Sep 24, 2022 01:55 PM Reporting Lab: [facility] [address] Performing Lab: [facility] [address] [place] [facility] CBC & DIFF LEUKOCYTES [#/VOLUME] IN BLOOD BY AUTOMATED COUNT 7.32 4.0 - 11.0 10/08 Specimen Type: BLOOD Comment: Automated Differentia l Performed Ordering Provider: ANKUSH BOWMAN Report Released Date/Time: Sep 24, 2022 01:55 PM Reporting Lab: [facility] [id number] Performing Lab: [facility] [id number] [place] [facility] CBC & DIFF ERYTHROCYT ES [#/VOLUME] IN BLOOD BY AUTOMATED COUNT 4.80 4.6 - 6.2 10/08 Specimen Type: BLOOD Comment: Automated Differentia l Performed Ordering Provider: ANKUSH BOWMAN Report Released Date/Time: Sep 24, 2022 01:55 PM Reporting Lab: [facility] [id number] Performing Lab: [facility] [id number] [place] [facility] CBC & DIFF HEMOGLOBIN [MASS/VOLU ME] IN BLOOD 14.7 13.5 - 17.9 10/08 Specimen Type: BLOOD Comment: Automated Differentia l Performed Ordering Provider: ANKUSH BOWMAN Report Released Date/Time: Sep 24, 2022 01:55 PM Reporting Lab: [facility] [address] Performing Lab: [facility] [address] [place] [facility] CBC & DIFF HEMATOCRIT [VOLUME FRACTION] OF BLOOD BY AUTOMATED COUNT 44.2 41 - 54 10/08 Specimen Type: BLOOD Comment: Automated Differentia l Performed Ordering Provider: ANKUSH BOWMAN Report Released Date/Time: Sep 24, 2022 01:55 PM Reporting Lab: [facility] [address] Performing Lab: [facility] [address] [place] [facility] CBC & DIFF MCV [ENTITIC VOLUME] BY AUTOMATED COUNT 92.1 80 - 100 10/08 Specimen Type: BLOOD Comment: Automated Differentia l Performed Ordering Provider: ANKUSH BOWMAN Report Released Date/Time: Sep 24, 2022 01:55 PM Reporting Lab: [facility] [address] Performing Lab: [facility] [address] [place] [facility] CBC & DIFF MCH [ENTITIC MASS] BY AUTOMATED COUNT 30.6 27 - 33 10/08 Specimen Type: BLOOD Comment: Automated Differentia l Performed Ordering Provider: ANKUSH BOWMAN Report Released Date/Time: Sep 24, 2022 01:55 PM Reporting Lab: [facility] [address] Performing Lab: [facility] [address] [place] [facility] CBC & DIFF MCHC [MASS/VOLU ME] BY AUTOMATED COUNT 33.3 32.0 - 37.5 10/08 Specimen Type: BLOOD Comment: Automated Differentia l Performed Ordering Provider: ANKUSH BOWMAN Report Released Date/Time: Sep 24, 2022 01:55 PM Reporting Lab: [facility] [address] Performing Lab: [facility] [address] [place] [facility] CBC & DIFF PLATELETS [#/VOLUME] IN BLOOD BY AUTOMATED COUNT 144 150 - 400 10/08 L Specimen Type: BLOOD Comment: Automated Differentia l Performed Ordering Provider: ANKUSH BOMWAN Report Released Date/Time: Sep 24, 2022 01:55 PM Reporting Lab: [facility] [address] Performing Lab: [facility] [address] [place] [facility] CBC & DIFF PLATELET MEAN VOLUME [ENTITIC VOLUME] IN BLOOD BY AUTOMATED COUNT 10.8 7.4 - 10.4 10/08 H Specimen Type: BLOOD Comment: Automated Differentia l Performed Ordering Provider: ANKUSH BOWMAN Report Released Date/Time: Sep 24, 2022 01:55 PM Reporting Lab: [facility] [address] Performing Lab: [facility] [address] [place] [facility] CBC & DIFF NEUTROPHIL S/100 LEUKOCYTES IN BLOOD BY MANUAL COUNT 55.5 10/08 Specimen Type: BLOOD Comment: Automated Differentia l Performed Ordering Provider: ANKUSH BOWMAN Report Released Date/Time: Sep 24, 2022 01:55 PM Reporting Lab: [facility] [address] Performing Lab: [facility] [address] [place] [facility] CBC & DIFF LYMPHOCYTE S/100 LEUKOCYTES IN BLOOD BY MANUAL COUNT 31.4 10/08 Specimen Type: BLOOD Comment: Automated Differentia l Performed Ordering Provider: ANKUSH BOWMAN Report Released Date/Time: Sep 24, 2022 01:55 PM Reporting Lab: [facility] [address] Performing Lab: [facility] [address] [place] [facility] CBC & DIFF MONOCYTES/ 100 LEUKOCYTES IN BLOOD BY AUTOMATED COUNT 10.2 10/08 Specimen Type: BLOOD Comment: Automated Differentia l Performed Ordering Provider: ANKUSH BOWMAN Report Released Date/Time: Sep 24, 2022 01:55 PM Reporting Lab: [facility] [address] Performing Lab: [facility] [address] [place] [facility] CBC & DIFF EOSINOPHIL S/100 LEUKOCYTES IN BLOOD BY AUTOMATED COUNT 2.2 10/08 Specimen Type: BLOOD Comment: Automated Differentia l Performed Ordering Provider: ANKUSH BOWMAN Report Released Date/Time: Sep 24, 2022 01:55 PM Reporting Lab: [facility] [address] Performing Lab: [facility] [address] [place] [facility] CBC & DIFF BASOPHILS/ 100 LEUKOCYTES IN BLOOD BY MANUAL COUNT 0.4 10/08 Specimen Type: BLOOD Comment: Automated Differentia l Performed Ordering Provider: ANKUSH BOWMAN Report Released Date/Time: Sep 24, 2022 01:55 PM Reporting Lab: [facility] [address] Performing Lab: [facility] [address] [place] [facility] CBC & DIFF ERYTHROCYT E DISTRIBUTI ON WIDTH [RATIO] BY AUTOMATED COUNT 15.9 11.5 - 14.5 10/08 H Specimen Type: BLOOD Comment: Automated Differentia l Performed Ordering Provider: ANKUSH BOWMAN Report Released Date/Time: Sep 24, 2022 01:55 PM Reporting Lab: [facility] [address] Performing Lab: [facility] [address] [place] [facility] CBC & DIFF LYMPHOCYTE S [#/VOLUME] IN BLOOD BY AUTOMATED COUNT 2.30 1.0 - 4.0 10/08 Specimen Type: BLOOD Comment: Automated Differentia l Performed Ordering Provider: ANKUSH BOWMAN Report Released Date/Time: Sep 24, 2022 01:55 PM Reporting Lab: [facility] [address] Performing Lab: [facility] [address] [place] [facility] CBC & DIFF MONOCYTES [#/VOLUME] IN BLOOD BY AUTOMATED COUNT 0.75 0.1 - 1.0 10/08 Specimen Type: BLOOD Comment: Automated Differentia l Performed Ordering Provider: ANKUSH BOWMAN Report Released Date/Time: Sep 24, 2022 01:55 PM Reporting Lab: [facility] [address] Performing Lab: [facility] [address] [place] [facility] CBC & DIFF NEUTROPHIL S [#/VOLUME] IN BLOOD BY AUTOMATED COUNT 4.06 2.0 - 7.7 10/08 Specimen Type: BLOOD Comment: Automated Differentia l Performed Ordering Provider: ANKUSH BOWMAN Report Released Date/Time: Sep 24, 2022 01:55 PM Reporting Lab: [facility] [address] Performing Lab: [facility] [address] [place] [facility] CBC & DIFF EOSINOPHIL S [#/VOLUME] IN BLOOD BY AUTOMATED COUNT 0.16 0 - 0.5 10/08 Specimen Type: BLOOD Comment: Automated Differentia l Performed Ordering Provider: ANKUSH BOWMAN Report Released Date/Time: Sep 24, 2022 01:55 PM Reporting Lab: [facility] [address] Performing Lab: [facility] [address] [place] [facility] CBC & DIFF BASOPHILS [#/VOLUME] IN BLOOD BY AUTOMATED COUNT 0.03 0 - 0.2 10/08 Specimen Type: BLOOD Comment: Automated Differentia l Performed Ordering Provider: ANKUSH BOWMAN Report Released Date/Time: Sep 24, 2022 01:55 PM Reporting Lab: [facility] [address] Performing Lab: [facility] [address] [place] [facility] CBC & DIFF IG(META,MY MALACHI,PRO) 0.3 10/08 Specimen Type: BLOOD Comment: Automated Differentia l Performed Ordering Provider: ANKUSH BOWMAN Report Released Date/Time: Sep 24, 2022 01:55 PM Reporting Lab: [facility] [address] Performing Lab: [facility] [address] [place] [facility] CBC & DIFF IMMATURE GRANULOCYT ES [PRESENCE] IN BLOOD BY AUTOMATED COUNT 0.02 0 - 0.1 10/08 Specimen Type: BLOOD Comment: Automated Differentia l Performed Ordering Provider: ANKUSH BOWMAN Report Released Date/Time: Sep 24, 2022 01:55 PM Reporting Lab: [facility] [address] Performing Lab: [facility] [address] [place] [facility] COMPREHE NSIVE METABOLI C PANEL+MG CREATININE [MASS/VOLU ME] IN SERUM OR PLASMA 0.7 0.7 - 1.2 10/08 Specimen Type: PLASMA No comment entered. Ordering Provider: ANKUSH BOWMAN Report Released Date/Time: Sep 24, 2022 01:55 PM Reporting Lab: [facility] [address] Performing Lab: [facility] [address] [facility] COMPREHE NSIVE METABOLI C PANEL+MG UREA NITROGEN [MASS/VOLU ME] IN SERUM OR PLASMA 16 8 - 26 10/08 Specimen Type: PLASMA No comment entered. Ordering Provider: ANKUSH BOWMAN Report Released Date/Time: Sep 24, 2022 01:55 PM Reporting Lab: [facility] [address] Performing Lab: [facility] [address] [facility] COMPREHE NSIVE METABOLI C PANEL+MG GLUCOSE [MASS/VOLU ME] IN SERUM OR PLASMA 94 70 - 100 10/08 Specimen Type: PLASMA No comment entered. Ordering Provider: ANKUSH BOWMAN Report Released Date/Time: Sep 24, 2022 01:55 PM Reporting Lab: [facility] [address] Performing Lab: [facility] [address] [place] [facility] COMPREHE NSIVE METABOLI C PANEL+MG SODIUM [MOLES/VOL UME] IN SERUM OR PLASMA 138 136 - 145 10/08 Specimen Type: PLASMA No comment entered. Ordering Provider: ANKUSH BOWMAN Report Released Date/Time: Sep 24, 2022 01:55 PM Reporting Lab: [facility] [address] Performing Lab: [facility] [address] [place] [facility] COMPREHE NSIVE METABOLI C PANEL+MG POTASSIUM [MOLES/VOL UME] IN SERUM OR PLASMA 3.9 3.5 - 5.1 10/08 Specimen Type: PLASMA No comment entered. Ordering Provider: ANKUSH BOWMAN Report Released Date/Time: Sep 24, 2022 01:55 PM Reporting Lab: [facility] [address] Performing Lab: [facility] [address] [place] [facility] COMPREHE NSIVE METABOLI C PANEL+MG CHLORIDE [MOLES/VOL UME] IN SERUM OR PLASMA 101 98 - 107 10/08 Specimen Type: PLASMA No comment entered. Ordering Provider: ANKUSH BOWMAN Report Released Date/Time: Sep 24, 2022 01:55 PM Reporting Lab: [facility] [address] Performing Lab: [facility] [address] [place] [facility] COMPREHE NSIVE METABOLI C PANEL+MG CARBON DIOXIDE, TOTAL [MOLES/VOL UME] IN SERUM OR PLASMA - 10/08 Specimen Type: PLASMA No comment entered. Ordering Provider: ANKUSH BOWMAN Report Released Date/Time: Sep 24, 2022 01:55 PM Reporting Lab: [facility] [address] Performing Lab: [facility] [address] [place] [facility] COMPREHE NSIVE METABOLI C PANEL+MG CALCIUM [MASS/VOLU ME] IN SERUM OR PLASMA 9.7 8.4 - 10.2 10/08 Specimen Type: PLASMA No comment entered. Ordering Provider: ANKUSH BOWMAN Report Released Date/Time: Sep 24, 2022 01:55 PM Reporting Lab: [facility] [address] Performing Lab: [facility] [address] [place] [facility] COMPREHE NSIVE METABOLI C PANEL+MG PROTEIN [MASS/VOLU ME] IN SERUM OR PLASMA 7.6 6.0 - 8.3 10/08 Specimen Type: PLASMA No comment entered. Ordering Provider: ANKUSH BOWMAN Report Released Date/Time: Sep 24, 2022 01:55 PM Reporting Lab: [facility] [address] Performing Lab: [facility] [address] [place] [facility] COMPREHE NSIVE METABOLI C PANEL+MG ALBUMIN [MASS/VOLU ME] IN SERUM OR PLASMA 4.2 3.5 - 5.2 10/08 Specimen Type: PLASMA No comment entered. Ordering Provider: ANKUSH BOWMAN Report Released Date/Time: Sep 24, 2022 01:55 PM Reporting Lab: [facility] [address] Performing Lab: [facility] [address] [place] [facility] COMPREHE NSIVE METABOLI C PANEL+MG BILIRUBIN. TOTAL [MASS/VOLU ME] IN SERUM OR PLASMA 0.6 0.2 - 1.2 10/08 Specimen Type: PLASMA No comment entered. Ordering Provider: ANKUSH BOWMAN Report Released Date/Time: Sep 24, 2022 01:55 PM Reporting Lab: [facility] [address] Performing Lab: [facility] [address] [place] [facility] COMPREHE NSIVE METABOLI C PANEL+MG MAGNESIUM [MASS/VOLU ME] IN SERUM OR PLASMA 2.1 1.6 - 2.6 10/08 Specimen Type: PLASMA No comment entered. Ordering Provider: ANKUSH BOWMAN Report Released Date/Time: Sep 24, 2022 01:55 PM Reporting Lab: [facility] [address] Performing Lab: [facility] [address] [place] [facility] COMPREHE NSIVE METABOLI C PANEL+MG ANION GAP IN SERUM OR PLASMA 9 5 - 15 10/08 Specimen Type: PLASMA No comment entered. Ordering Provider: ANKUSH BOWMAN Report Released Date/Time: Sep 24, 2022 01:55 PM Reporting Lab: [facility] [address] Performing Lab: [facility] [address] [place] [facility] COMPREHE NSIVE METABOLI C PANEL+MG ALKALINE PHOSPHATAS E [ENZYMATIC ACTIVITY/V OLUME] IN SERUM OR PLASMA 96 40 - 150 10/08 Specimen Type: PLASMA No comment entered. Ordering Provider: ANKUSH BOWMAN Report Released Date/Time: Sep 24, 2022 01:55 PM Reporting Lab: [facility] [address] Performing Lab: [facility] [address] [facility] COMPREHE NSIVE METABOLI C PANEL+MG ALANINE AMINOTRANS FERASE [ENZYMATIC ACTIVITY/V OLUME] IN SERUM OR PLASMA 29 <55 - 55 10/08 Specimen Type: PLASMA No comment entered. Ordering Provider: ANKUSH BOWMAN Report Released Date/Time: Sep 24, 2022 01:55 PM Reporting Lab: [facility] [address] Performing Lab: [facility] [address] [facility] COMPREHE NSIVE METABOLI C PANEL+MG ASPARTATE AMINOTRANS FERASE [ENZYMATIC ACTIVITY/V OLUME] IN SERUM OR PLASMA 22 <34 - 34 10/08 Specimen Type: PLASMA No comment entered. Ordering Provider: ANKUSH BOWMAN Report Released Date/Time: Sep 24, 2022 01:55 PM Reporting Lab: [facility] [address] Performing Lab: [facility] [address] [facility] COMPREHE NSIVE METABOLI C PANEL+MG GLOMERULAR FILTRATION RATE/1.73 SQ M.PREDICTE D [VOLUME RATE/AREA] IN SERUM, PLASMA OR BLOOD BY CREATININE -BASED FORMULA (CKD-EPI) >90 60 10/08 Specimen Type: PLASMA No comment entered. Ordering Provider: ANKUSH BOWMAN Report Released Date/Time: Sep 24, 2022 01:55 PM Reporting Lab: [facility] [address] Performing Lab: [facility] [address] [facility] CYSTATIN C WITH EGFR CYSTATIN C [MASS/VOLU ME] IN SERUM OR PLASMA 1.38 0.51 - 1.05 10/08 H Specimen Type: PLASMA No comment entered. Ordering Provider: ANKUSH BOWMAN Report Released Date/Time: Sep 24, 2022 01:55 PM Reporting Lab: [facility] [address] Performing Lab: [facility] [address] [place] [facility] CYSTATIN C WITH EGFR CYSTATIN C AND GLOMERULAR FILTRATION RATE BY CYSTATIN-B ASED FORMULA PANEL - SERUM OR PLASMA 48 60 10/08 L Specimen Type: PLASMA No comment entered. Ordering Provider: ANKUSH BOWMAN Report Released Date/Time: Sep 24, 2022 01:55 PM Reporting Lab: [facility] [address] Performing Lab: [facility] [address] [place] [facility] VIT D 25-OH,TO ZAMZAM 25-HYDROXY VITAMIN D3 [MASS/VOLU ME] IN SERUM OR PLASMA 54 12 - 50 10/08 H Specimen Type: SERUM No comment entered. Ordering Provider: ANKUSH BOWMAN Report Released Date/Time: Sep 24, 2022 01:55 PM Reporting Lab: [facility] [address] Performing Lab: [facility] [address] [place] [facility] CBC LEUKOCYTES [#/VOLUME] IN BLOOD BY AUTOMATED COUNT 6.27 4.0 - 11.0 05/28 Specimen Type: BLOOD No comment entered. Ordering Provider: GERMANIA HANSON Report Released Date/Time: May 28, 2022 03:06 PM Reporting Lab: [facility] [address] Performing Lab: [facility] [address] [facility] CBC ERYTHROCYT ES [#/VOLUME] IN BLOOD BY AUTOMATED COUNT 4.43 4.6 - 6.2 05/28 L Specimen Type: BLOOD No comment entered. Ordering Provider: GERMANIA HANSON Report Released Date/Time: May 28, 2022 03:06 PM Reporting Lab: [facility] [address] Performing Lab: [facility] [address] [facility] CBC HEMOGLOBIN [MASS/VOLU ME] IN BLOOD 12.9 13.5 - 17.9 05/28 L Specimen Type: BLOOD No comment entered. Ordering Provider: GERMANIA HANSON Report Released Date/Time: May 28, 2022 03:06 PM Reporting Lab: [facility] [address] Performing Lab: [facility] [address] [facility] CBC HEMATOCRIT [VOLUME FRACTION] OF BLOOD BY AUTOMATED COUNT 40.2 41 - 54 05/28 L Specimen Type: BLOOD No comment entered. Ordering Provider: GERMANIA HANSON Report Released Date/Time: May 28, 2022 03:06 PM Reporting Lab: [facility] [address] Performing Lab: [facility] [address] [facility] CBC MCV [ENTITIC VOLUME] BY AUTOMATED COUNT 90.7 80 - 100 05/28 Specimen Type: BLOOD No comment entered. Ordering Provider: GERMANIA HANSON Report Released Date/Time: May 28, 2022 03:06 PM Reporting Lab: [facility] [address] Performing Lab: [facility] [address] [facility] CBC MCH [ENTITIC MASS] BY AUTOMATED COUNT 29.1 27 - 33 05/28 Specimen Type: BLOOD No comment entered. Ordering Provider: GERMANIA HANSON Report Released Date/Time: May 28, 2022 03:06 PM Reporting Lab: [facility] [address] Performing Lab: [facility] [address] [facility] CBC MCHC [MASS/VOLU ME] BY AUTOMATED COUNT 32.1 32.0 - 37.5 05/28 Specimen Type: BLOOD No comment entered. Ordering Provider: GERMANIA HANSON Report Released Date/Time: May 28, 2022 03:06 PM Reporting Lab: [facility] [address] Performing Lab: [facility] [address] [facility] CBC PLATELETS [#/VOLUME] IN BLOOD BY AUTOMATED COUNT 183 150 - 400 05/28 Specimen Type: BLOOD No comment entered. Ordering Provider: GERMANIA HANSON Report Released Date/Time: May 28, 2022 03:06 PM Reporting Lab: [facility] [address] Performing Lab: [facility] [address] [facility] CBC PLATELET MEAN VOLUME [ENTITIC VOLUME] IN BLOOD BY AUTOMATED COUNT 10.6 7.4 - 10.4 05/28 H Specimen Type: BLOOD No comment entered. Ordering Provider: GERMANIA HANSON Report Released Date/Time: May 28, 2022 03:06 PM Reporting Lab: [facility] [address] Performing Lab: [facility] [address] [facility] CBC ERYTHROCYT E DISTRIBUTI ON WIDTH [RATIO] BY AUTOMATED COUNT 13.5 11.5 - 14.5 05/28 Specimen Type: BLOOD No comment entered. Ordering Provider: GERMANIA HANSON Report Released Date/Time: May 28, 2022 03:06 PM Reporting Lab: [facility] [address] Performing Lab: [facility] [address] [facility] Encounters Combined list of: 1) Encounters from [facility] Affairs facilities going back up to thelast 18 months. 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 Location Location Details Encounter Type Encounter Number Reason For Visit Attending Provider ADM Date DC Date Status Disposition Source [facility] Outpatient Encounter [id number] 09/20 [facility] OFFICE O/P EST MINIMAL PROB [id number] Diagnos is: ICD-10- CM G82.20 Paraple mary kay, unspeci fied
Jey PATTON V 10/08 [facility] ASSISTIVE TECHNOLOGY ASSESS [id number] Diagnos is: ICD-10- CM Z73.6 Limitat ion of activit ies due to disabil ity<br/ > BOUSLOG,RY AN P 10/08 [facility] Outpatient Encounter [id number] 10/09 [facility] Outpatient Encounter [id number] 10[facility]11 [facility] HC PRO PHONE CALL 5-10 MIN [id number] Diagnos is: ICD-10- CM Z73.6 Limitat ion of activit ies due to disabil ity<br/ > AVE HALEY 12/13 [facility] Outpatient Encounter [id number] 01/08 [facility] HC PRO PHONE CALL 21-30 MIN [id number] Diagnos is: ICD-10- CM G82.20 Paraple mary kay, unspeci fied
Hever CASTRO 01/08 [facility] Outpatient Encounter [id number] 01/09 [facility] DIABETIC MANAGEMENT PROGRAM, [id number] Diagnos is: ICD-10- CM G82.20 Paraple mary kay, unspeci fied
TIGIST BASSETT 01/30 [facility] Outpatient Encounter [id number] 02/05 [facility] MTMS BY PHARM ADDL 15 MIN [id number] Diagnos is: ICD-10- CM G82.20 Paraple mary kay, unspeci fied
MANPREET BARRETT 02/05 [facility] OT EVAL LOW COMPLEX 30 MIN [id number] Diagnos is: ICD-10- CM Z73.6 Limitat ion of activit ies due to disabil ity<br/ > Bryn PARDO 02/05 [facility] OFF/OP EST MAY X REQ PHY/QHP [id number] Diagnos is: ICD-10- CM G82.20 Paraple mary kay, unspeci fied
JOSUÉ ZAMORA J 02/05 [facility] PSYCH DIAGNOSTIC EVALUATION [id number] Diagnos is: ICD-10- CM F32.A Depress ion, unspeci fied
BINU GAMEZ 02/05 [facility] OFFICE O/P EST MOD 30-39 MIN [id number] Diagnos is: ICD-10- CM G82.20 Paraple mary kay, unspeci fied
ME LOGAN BOWMAN 02/05 [facility] PSYCH DIAGNOSTIC EVALUATION [id number] Diagnos is: ICD-10- CM G82.20 Paraple mary kay, unspeci fied
CHIRCHULA,AN DESIRE J 02/05 [facility] MEDICAL NUTRITION INDIV IN [id number] Diagnos is: ICD-10- CM Z71.3 Dietary correctional substance abuse counselor ing and surveil payal<b r/> Katia ARCHER 02/05 [facility] ENTEROSTOM AL THERAPY BY A RE [id number] Diagnos is: ICD-10- CM Z43.3 Encount er for attenti on to colosto my
VIOLA YOON 02/08 [facility] OFFICE O/P EST HI 40-54 MIN [id number] Diagnos is: ICD-10- CM G82.20 Paraple mary kay, unspeci fied
ME LOGAN BOWMAN 02/13 [facility] WHEELCHAIR MNGMENT TRAINING [id number] Diagnos is: ICD-10- CM Z73.6 Limitat ion of activit ies due to disabil ity<br/ > BOUSLOG,RY AN P 02/13 [place] [facility] [place] [facility] Outpatient Encounter [id number] 02/19 [place] [place] [facility] HC PRO PHONE CALL 11-20 MIN [id number] Diagnos is: ICD-10- CM Z73.6 Limitat ion of activit ies due to disabil ity<br/ > BOUSLOG,RY AN P 04/23 [place] [facility] [place] [facility] Outpatient Encounter [id number] 04/24 [place] [facility] [place] [facility] Outpatient Encounter [id number] 05/24 [facility] [place] [facility] OFF/OP EST MARCH X REQ PHY/QHP [id number] Diagnos is: ICD-10- CM G82.20 Paraple mary kay, unspeci fied
VIOLA YOON NDJagdish 05/28 [facility] [place] [facility] WHEELCHAIR MNGMENT TRAINING [id number] Diagnos is: ICD-10- CM Z73.6 Limitat ion of activit ies due to disabil ity<br/ > BOUSLOG,RY AN P 06[facility] [place] Outpatient Encounter [id number] 10[facility]28 [facility] Outpatient Encounter [id number] 11/20 [facility] Social History Combined list of available smoking, tobacco, and other social history from 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 Social History Type Response Date Comment Sour e Tobacco [facility] status [facility]-TO[facility]CO NEVER USED 05/28/20 22 SADAF TREVINO [facility] This section is an empty social history section. DoD Advance Directives List of completed, amended, or rescinded Advance Directives on record at Department of 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 An actual copy of the Directive is not included. Date Advance Directive Provider Source 02/05/2023 ADVANCE DIRECTIVE DISCUSSION GUSTAVO ABAD [facility]
--- OUTSIDE RECORDS SUMMARY | 2024-03-02 12:45 | XMS_ITS | Encounter Summary ---
Author Name Unknown Organization [facility] Address [address] [place] [address] Care Team Providers Care Lithographic Plate Maker Name Role Phone Franklin Squires MD Primary Care Provider Encounter Details Date Type Department Care Team (Late st Contact Info) Description 06/07/2015 Correspondence [facility] Radiology [address] [place] [address] Radiology, Provider MRI SAFETY SHEET AND COMPATIBILITY [...] filedocumented in this encounter Care Teams Lithographic Plate Maker Relationship Specialty Start Date End Date Franklin Squires MD [address] [place] [address] [place] [id number] PCP - General Family Practice 03/08/16 documented as of this encounter
--- OUTSIDE RECORDS SUMMARY | 2024-03-02 12:45 | XMS_ITS | Encounter Summary ---
Author Name Unknown Organization [facility] Address [address] [address] Care Team Providers Care Medical Records Assistant Name Role Phone Franklin Squires MD Primary Care Provider [phone] Encounter Details Date Type Department Care Team (Late st Contact Info) Description 12/16/2014 Correspondence External to External, Provider No address [place] [phone] MEDICARE PLAN OF CARE RECERT Social History [...] filedocumented in this encounter Care Teams Medical Records Assistant Relationship Specialty Start Date End Date Franklin Squires MD [address] [facility] [place] [address] PCP - General Family Practice 03/08/16 documented as of this encounter
--- OUTSIDE RECORDS SUMMARY | 2024-03-02 12:45 | XMS_ITS | Encounter Summary ---
Author Name Unknown Organization [facility] Address [address] [address] Care Team Providers Care Fishing Game Warden Name Role Phone Franklin Squires MD Primary Care Provider Encounter Details Date Type Department Care Team (Late st Contact Info) Description 11/23/2015 Correspondence External to External, [place] [address] LETTER [facility] Social History Tobacco Use [...] on filedocumented in this encounter Care Teams Fishing Game Warden Relationship Specialty Start Date End Date Franklin Squires MD 100 [facility] [place] [address] PCP - General Family Practice 03/08/16 documented as of this encounter
--- OUTSIDE RECORDS SUMMARY | 2024-03-02 12:45 | XMS_ITS | Encounter Summary ---
Author Name Unknown Organization [facility] Address [address], [place] [address] Care Team Providers Care Screen Vent Binder Name Role Phone Franklin Squires MD Primary Care Provider [phone] Encounter Details Date Type Department Care Team ([facility] st Contact Info) Description 07/08/2015 Correspondence [facility] Physical Therapy [address] [place] [address] Truid Raymundo, PT [address] [place] [address] ADDENDUM FOR LETTER OF MEDICAL NECESSITY Social [...] on filedocumented in this encounter Care Teams Screen Vent Binder Relationship Specialty Start Date End Date Franklin Squires MD [facility] [address] PCP - General Family Practice 03/08/16 documented as of this encounter
--- OUTSIDE RECORDS SUMMARY | 2024-03-02 12:45 | XMS_ITS ---
Author Name Unknown Organization [facility] Address [address] [address] Care Team Providers Care Warehouse Associate Name Role Phone Franklin Squires MD [...] 0 06/10/2014 History of anticoagulant therapy 02/17/2014 snf current use of anticoagulant therapy 0 02/17/2014 [...] treatments are documented for this patient in [facility]. Treatments may have been administered in another system. Resolved Problems Problem Noted Date Diagnosed Date Resolved Date Gait abnormality 01/17/2012 02/09/2015 Back pain 01/17/2012 02/09/2015 Paraplegia 04/04/2011 02/09/2015 Osteoporosis 03/06/2011 02/09/2015 Urinary tract infection 12/24/200603/11
--- OUTSIDE RECORDS SUMMARY | 2024-03-02 12:45 | XMS_ITS | Encounter Summary ---
Author Name Unknown Organization [facility] Address [address] [place] [address] Care Team Providers Care Exercise Equipment Specialist Name Role Phone Franklin Squires MD Primary Care Provider Encounter Details Date Type Department Care Team (Late st Contact Info) Description 01/06/[address] [facility] Radiology [address] [place] [address] Radiology, Provider MRI SAFETY SHEET AND COMPATIBILITY [...] on filedocumented in this encounter Care Teams Exercise Equipment Specialist Relationship Specialty Start Date End Date Franklin Squires MD [address] [place] [address] [place] [address] PCP - General Family Practice 03/08/16 documented as of this encounter
--- OUTSIDE RECORDS SUMMARY | 2024-03-02 12:45 | XMS_ITS | Encounter Summary ---
Author Name Unknown Organization [facility] Address [address] [address] Care Team Providers Care Recycling Attendant Name Role Phone Franklin Squires MD Primary [...] on filedocumented in this encounter Care Teams Recycling Attendant Relationship Specialty Start Date End Date Franklin Squires MD 100 [facility] [place] [address] PCP - General Family Practice 03/08/16 documented as of this encounter
--- OUTSIDE RECORDS SUMMARY | 2024-03-02 12:45 | XMS_ITS | Encounter Summary ---
Author Name Unknown Organization [facility] Address [address], [place] [address] Care Team Providers Care Radiological Metallurgist Name Role Phone Franklin Squires MD Primary Care Provider [phone] Encounter Details Date Type Department Care Team (Late st Contact Info) Description 11/10/2014 Correspondence [facility] Physical Therapy [address] [place] [address] Trudi Raymundo, PT [address] [place] [address] LETTER OF MEDICAL NECESSITY Social History Tobacco [...] on filedocumented in this encounter Care Teams Radiological Metallurgist Relationship Specialty Start Date End Date Franklin Squires MD [facility] [address] PCP - General Family Practice 03/08/16 documented as of this encounter
--- OUTSIDE RECORDS SUMMARY | 2024-03-02 12:45 | XMS_ITS | Encounter Summary ---
Author Name Unknown Organization [facility] Address [address] [place] [address] Care Team Providers Care Director Fixed Income Name Role Phone Franklin Squires MD Primary Care Provider [phone] Encounter Details Date Type Department Care Team (Late st Contact Info) Description 09/07/2014 Correspondence [facility] Radiology [address] [place] [address] Radiology, Provider MRI SAFETY SHEET AND COMPATIBILITY [...] filedocumented in this encounter Care Teams Director Fixed Income Relationship Specialty Start Date End Date Franklin Squires MD [address] [place] [address] [place] [address] PCP - General Family Practice 03/08/16 documented as of this encounter
--- OUTSIDE RECORDS SUMMARY | 2024-03-02 12:45 | XMS_ITS | Clinical Summary ---
Author Name Unknown [facility] Address [address] [place] [address] Care Team Providers Care Bottle Capper Name Role Phone Franklin Squires MD Primary Care Provider [phone] Source Comments You are receiving this document as you are listed as the primary care provider,follow-up provider, or the patient has been referred to you for consultation.This is in compliance with the Medicare and[facility] Healthca[facility] EHR Incentive Program,which states Providers who transition their patient to another setting of careor provider of care or refers their patient to another provider of care shouldprovide summary care record for each transition of care or referral. [facility] Allergies Active Allergy Reactions Criticality Noted Date [...] Comments Blood Pressure 120/63 01/18/2022 12:59 PM CAUSTIC LOADER Pulse 87 01/18/2022 12:59 PM CAUSTIC LOADER Temperature 36.3 ??C (97.4 ??F) 01/18/2022 12:59 [...] this topic Medical Devices Implanted Type Area Data Entry Representative Device Identifier Shelf Expiration Date Model / Serial / Lot [id number] 4ml Tisseel Explanted:([place] ntity not on file) BIOLOGIC N/A: NECK Lynne Fenwall 09/10/2011 [id number] / [id number] / [id number] Description:posterior Cath Intrathecal Indura - [id number] Implanted:Qty: 1 on 05/09/2010 at [facility] DEVICE Right: LUMBAR SPINE [employer] Software 01/18/2012 8709 / N/A / [id number] Cath Intrathecal Indura - [id number] Implanted:Qty: 1 on 05/29/2010 at [facility] DEVICE Conne[employer] Software 8709 / / Scr Indira Conic 7.3x80 - [id number] Implanted:Qty: 1 on 03/13/2011 at [facility] DEVICE Right: FEMUR DISTAL [employer] 02.207.28 0 / NONE / NONE Plt Lcp Cndl Rt 4.5x170 6h - [id number] Implanted:Qty: 1 on 03/13/2011 at [facility] DEVICE Right: FEMUR DISTAL [employer] 222.656 / NONE / NONE Description:6 hole 170mm rig ht 4.5mm lcp condylar plate Scr Didier Ss Sftp 4.5x40 - [id number] Implanted:Qty: 1 on 03/13/2011 at [facility] DEVICE Left: FEMUR DISTAL [employer] 214.840 / NONE / NONE Scr Didier Ss Sftp 4.5x50 - [id number] Implanted:Qty: 1 on 03/13/2011 at [facility] DEVICE Left: FEMUR DISTAL [employer] 214.850 / NONE / NONE Scr Indira Lk 5.0x80 - [id number] Implanted:Qty: 2 on 03/13/2011 at [facility] DEVICE Left: FEMUR DISTAL [employer] 02.205.08 0 / NONE / NONE Scr Indira Lk 5.0x85 - [id number] Implanted:Qty: 2 on 03/13/2011 at [facility] DEVICE Left: FEMUR DISTAL [employer] 02.205.08 5 / NONE / NONE Scr Lk Sftp T25 5.0x50 - [id number] Implanted:Qty: 1 on 03/13/2011 at [facility] DEVICE Left: FEMUR DISTAL [employer] 212.219 / NONE / NONE Scr Lk Sftp T25 5.0x60 - [id number] Implanted:Qty: 1 on 03/13/2011 at [facility] DEVICE Left: FEMUR DISTAL [employer] 212.221 / NONE / NONE Scr Indira Conic 7.3x85 - [id number] Implanted:Qty: 1 on 03/13/2011 at [facility] DEVICE Left: FEMUR DISTAL [employer] 02.207.28 5 / NONE / NONE Plt Lcp Cndl Lt 4.5x170 6h - [id number] Implanted:Qty: 1 on 03/13/2011 at [facility] DEVICE Left: FEMUR DISTAL [employer] 222.657 / NONE / NONE Description:6 hole 170mmleng th left 4.5mm lcp condylar plate. Scr Didier Sftp 3.5x60 F-Thrd - [id number] Implanted:Qty: 1 on 03/13/2011 at [facility] DEVICE Left: TIBIA PROXIMAL [employer] 204.860 / NONE / NONE Scr Star Lk Sftp 3.5x32 - [id number] Implanted:Qty: 1 on 03/13/2011 at [facility] DEVICE Left: TIBIA PROXIMAL [employer] 212.112 / NONE / NONE Scr Star Lk Sftp 3.5x55 - [id number] Implanted:Qty: 2 on 03/13/2011 at [facility] DEVICE Left: TIBIA PROXIMAL [employer] 212.123 / NONE / NONE Scr Star Lk Sftp 3.5x60 - [id number] Implanted:Qty: 2 on 03/13/2011 at [facility] DEVICE Left: TIBIA [employer]OX[employer]AL [employer] 212.124 / NONE / NONE Plt Lcp M/Prox Lt 3.5x94 4h - [id number] Implanted:Qty: 1 on 03/13/2011 at [facility] DEVICE Left: TIBIA PROXIMAL [employer] 239.955 / NONE / NONE Scr Didier Ss Sftp 4.5x36 - [id number] Implanted:Qty: 1 on 03/13/2011 at [facility] DEVICE Right: FEMUR DISTAL [employer] 214.836 / NONE / NONE Scr Didier Ss Sftp 4.5x44 - [id number] Implanted:Qty: 1 on 03/13/2011 at [facility] DEVICE Right: FEMUR DISTAL [employer] 214.844 / NONE / NONE Scr Indira Lk 5.0x75 - [id number] Implanted:Qty: 1 on 03/13/2011 at [facility] DEVICE Right: FEMUR DISTAL [employer] 02.205.07 5 / NONE / NONE Scr Indira Lk 5.0x85 - [id number] Implanted:Qty: 2 on 03/13/2011 at [facility] DEVICE Right: FEMUR DISTAL [employer] 02.205.08 5 / NONE / NONE Scr Lk Sftp T25 5.0x44 - [id number] Implanted:Qty: 1 on 03/13/2011 at [facility] DEVICE Right: FEMUR DISTAL [employer] 212.216 / NONE / NONE Scr Lk Sftp T25 5.0x65 - [id number] Implanted:Qty: 1 on 03/13/2011 at [facility] DEVICE Right: FEMUR DISTAL [employer] 212.222 / NONE / NONE Plt Lp T Ti Str 4h - [id number] Implanted:Qty: 3 on 07/28/2014 by Cooper Shelley MD at [facility] DEVICE Right: SKULL [employer] 421.504 / / Scr Matrix Sfdr 4mm - [id number] Implanted:Qty: 6 on 07/28/2014 by Cooper Shelley MD at [facility] DEVICE Right: [employer]ULL [employer] [place] 04.503.10 4.01 / / Lead Linear 3-4 8 Contact 50cm - [id number] Implanted:Qty: 1 on 03/08/2016 by Zelalem Cohen DO at [facility] DEVICE N/A: OTHER-SEE DESCRIPTION [facility] 09/10/2017 [id number] 2500 / / [id number] Description:LUMBAR Lead Linear 3-4 8 Contact 50cm - [id number] Implanted:Qty: 1 on 03/08/2016 by Zelalem Cohen DO at [facility] DEVICE N/A: OTHER-SEE DESCRIPTION [facility] 09/10/2017 [id number] 2500 / / [id number] Description:LUMBAR Lead Linear 3-4 8 Contact 50cm - [id number] Implanted:Qty: 1 on 03/08/2016 by Zelalem Cohen DO at [facility] DEVICE N/A: OTHER-SEE DESCRIPTION [facility] 09/10/2017 [id number] 2500 / / [id number] Description:LUMBAR Lead Linear 3-4 8 Contact 50cm - [id number] Implanted:Qty: 1 on 03/08/2016 by Zelalem Cohen DO at [facility] DEVICE N/A: OTHER-SEE DESCRIPTION [facility] 09/10/2017 [id number] 2500 / / [id number] Description:LUMBAR Lead Linear 3-4 8 Contact 50cm - [id number] Implanted:Qty: 1 on 05/24/2016 by Zelalem Cohen DO at [facility] DEVICE N/A: SPINE LUMBAR POSTERIOR [facility] 01/31/2018 [id number] 2500 / [id number] / Lead Linear 3-4 8 Contact 50cm - [id number] Implanted:Qty: 1 on 05/24/2016 by Zelalem Cohen DO at [facility] DEVICE N/A: SPINE LUMBAR POSTERIOR [facility] 04/26/2018 [id number] 2500 / [id number] / Lead Linear 3-4 8 Contact 50cm - [id number] Implanted:Qty: 1 on 05/24/2016 by Zelalem Cohen DO at [facility] DEVICE N/A: SPINE LUMBAR POSTERIOR [facility] 04/26/2018 [id number] 2500 / [id number] / Lead Linear 3-4 8 Contact 50cm - [id number] Implanted:Qty: 1 on 05/24/2016 by Zelalem Cohen DO at [facility] DEVICE N/A: SPINE LUMBAR POSTERIOR [facility] 04/26/2018 [id number] 2500 / [id number] / Generator Pulse Spectra - [id number] Implanted:Qty: 1 on 05/24/2016 by Zelalem Cohen DO at [facility] DEVICE N/A: SPINE LUMBAR POSTERIOR [facility] 05/08/2018 [id number] / [id number] / [id number] [place] [employer] - [id number] Implanted:Qty: 1 on 05/24/2016 by Zelalem Cohen DO at [facility] DEVICE N/A: SPINE LUMBAR POSTERIOR [facility] 05/02/2018 [id number] 60 / / [id number] [place] [employer] - [id number] Implanted:Qty: 1 on 05/24/2016 by Zelalem Cohen DO at [facility] DEVICE N/A: SPINE LUMBAR POSTERIOR [facility] 02/28/2018 [id number] 60 / / [id number] Procedures Procedure Name Priority Date/Time Associated Diagnosis Comments CREATININE/GFR, WB POC Routine 01/06/2016 12:04 PM CAUSTIC LOADER Back pain, 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 HGB A1C Routine 07/29/2014 3:19 AM CDT from Last 3 Months or Most Recently Relevant to Health Maintenance Results * CREATININE/GFR, WB POC (01/06/2016 12:04 PM CAUSTIC LOADER) Creat Whole Blood 0.9 0.66 - 1.25 mg/dl [facility] GFR, Estimated >60 >60 ml/min/1.7 3m2 [facility] GFR, Est., If Black >60 >60 ml/min/1.7 3m2 [facility] 01/06/2016 12:0 4 PM CAUSTIC LOADER 01/06/2016 12:21 PM CAUSTIC LOADER Trae Blair MD LAB_[facility] [phone] * (ABNORMAL) HGB A1C (07/29/2014 3:19 AM CDT) Hgb A1c 6.4(H) 4.3 - 6.1 % [facility] Comment: The usual A1C goal for people with diabetes, age 18-75, is <8.0%. Physicians may recommend a higher or lower goal for specific individuals. 07/29/2014 3:19 AM CDT 07/29/2014 3:22 AM CDT [facility] - 07/29/2014 12:53 PM CDT Performed at [facility], [address] ??[address] [place] Wei PA-C LAB_[address] [address] from Last 3 Months or Most Recently [...] 5:44 PM 07/28/2014 6:50 PM Care Teams Bottle Capper Relationship Specialty Start Date End Date Franklin Squires MD 100 [facility] [place] [address] PCP - General Family Practice 03/08/16
--- OUTSIDE RECORDS SUMMARY | 2024-03-02 12:45 | XMS_ITS | Encounter Summary ---
Author Name Unknown Organization [facility] Address [address], [place] [address] Care Team Providers Care Information Clerk Name Role Phone Franklin Squires MD Primary Care Provider Encounter Details Date Type Department Care Team (Late st Contact Info) Description 08/22/2014 Outside Hospital External to [facility] HOSP-D/C SUMMARY Social History Tobacco Use [...] filedocumented in this encounter Care Teams Information Clerk Relationship Specialty Start Date End Date Franklin Squires MD 100 [facility] [place] [address] PCP - General Family Practice 03/08/16 documented as of this encounter
--- OUTSIDE RECORDS SUMMARY | 2024-03-02 12:45 | XMS_ITS | Encounter Summary ---
Author Name Unknown Organization [facility] Address [address] [address] Care Team Providers Care Ammonium Hydroxide Operator Name Role Phone Franklin Squires MD Primary Care Provider [phone] Encounter Details Date Type Department Care Team (Late st Contact Info) Description 08/20/2014 Outside Hospital External to [facility] HOSP-H/P Social History Tobacco Use Types Packs/Day [...] on filedocumented in this encounter Care Teams Ammonium Hydroxide Operator Relationship Specialty Start Date End Date Franklin Squires MD [address] [facility] [place] [address] PCP - General Family Practice 03/08/16 documented as of this encounter
--- OUTSIDE RECORDS SUMMARY | 2024-03-02 12:45 | XMS_ITS | Encounter Summary ---
Author Name Unknown Organization [facility] Address [address], [place] [address] Care Team Providers Care Shop Assistant Name Role Phone Franklin Squires MD Primary Care Provider Encounter Details Date Type Department Care Team ([facility] st Contact Info) Description 02/09/2016 Correspondence [facility] Neuro[facility]gery 401 [facility] [place], [place] [id number] Jodi Aguila PA-C [address] [place] [address] PATIENT LIFT PRESCRIPTION Social History Tobacco Use [...] on filedocumented in this encounter Care Teams Shop Assistant Relationship Specialty Start Date End Date Franklin Squires MD 100 [facility] [place] [address] PCP - General Family Practice 03/08/16 documented as of this encounter
--- OUTSIDE RECORDS SUMMARY | 2024-03-02 12:45 | XMS_ITS | Encounter Summary ---
Author Name Unknown Organization [facility] Address [address], [place] [address] Care Team Providers Care Software Licensing Executive Name Role Phone Franklin Squires MD Primary Care Provider [phone] Encounter Details Date Type Department Care Team (Late st Contact Info) Description 08/20/2014 Outside Hospital External to [facility] HOSP-ADMIT H/P Social History Tobacco Use Types [...] on filedocumented in this encounter Care Teams Software Licensing Executive Relationship Specialty Start Date End Date Franklin Squires MD 100 [place] [place] [address] PCP - General Family Practice 03/08/16 documented as of this encounter
--- OUTSIDE RECORDS SUMMARY | 2024-03-02 12:45 | XMS_ITS | Clinical Summary ---
Author Name Unknown Organization [facility] [facility] Address [place], [place] [address] Care Team Providers Care General Adjuster Name Role Phone Zelalem Cohen MD Unavailable [phone] May Randle MD Unavailable [phone] Franklin Squires MD Primary Care Provider Fred Craft Unavailable [phone] Diane Charles MD Unavailable [phone] Julia Ware RN Unavailable [phone] Allergies Active Allergy Reactions Criticality Noted Date [...] bedIndications:Non-heal ing surgical wound, subsequent encounter [facility] [facility] 8 inch low loss mattress and 1/2 rails. Semi-electric bed. Length of need 6 weeks. Bed software specialist:no 1 unit 018 Active acetaminophen (TYLENOL EXTRA [...] 60mm, Cut-to-Fit 01/16 - 2 11/18. Item #[id number]. 1 Each 11 021 Active furosemide (LASIX) [...] A DAY 180 Capsule 1 023 Active potassium chloride (KLOR-CON M10) 10 [...] every 6 hours. 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 120 Tablet 2 Active potassium chloride (KLOR-CON) 20 mEq extended-release tablet (part/cryst)Indications :Hypokalemia Take 1 Tablet (20 mEq) by mouth once daily with a meal. 90 Tablet 3 023 2023 Discontinued(P harmacist change per medication history (E-cancel not sent)) LORazepam (ATIVAN) 0.5 mg tabIndications:Parapleg ia (HC) TAKE ONE TABLET BY MOUTH TWICE A DAY AND TAKE TWO TABLETS BY MOUTH AT BEDTIME 120 Tablet 2 023 2023 Discontinued(R eorder (E-cancel not sent)) [...] add note to specify (E-cancel not sent)) amoxicillin-clavulanate 875-125 mg tablet (AUGMENTIN)Indications: lower respiratory infection Take 1 Tablet by mouth two times daily with meals for 7 days. 14 Tablet 024 2023 warfarin (COUMADIN) 7.5 mg tabletIndications:Iliof emoral thrombophlebitis [...] Date Resolved Date Soft tissue infection 10/22/20232023 manager terminal current use of anticoagulant 06/20/2023 01/08/2024 Cellulitis of scrotum 05/08/20232022 UTI (urinary tract infection) 05/08/2023 06/20/2023 Quadriplegia, unspecified 10/23/2022 Continuous opioid dependence 07/01/2022 08/20/2022 Urinary tract infection asso ciated with indwelling urethral catheter 10/05/2021 06/20/2023 Hypertensive urgency 10/04/2021 023 Type 2 [facility] of [facility] 01/06/2021 02/14/2024 [...] delivery 04/16/2007 10/01/2007 Overview: S/P IVC Filter manager terminal (current) use of anticoagulants 02/19/2007 09/27/2008 Depressive disorder, not elsewhere classified 02/14/20 07 01/15/2018 Abnormality of gait 12/24/2006 09/27/20 08 Urinary tract infection, site not specified 12/24/2006 01/15/2018 BENIGN ESSENTIAL HYPERTENSION 12/24/2006 04/17/2016 Overview: borderline Necrotizing fasciitis 2018 Type 2 diabetes mellitus Encounters Date Type Department Care Team Description 02/24/2024 Patient Outreach [facility] Care Management - Advanced Care Team [address] [place] [address] Archana Wright RN Complex Care Management (ACO outreach engagement ) 02/24/[address] [phone] Franklin Squires MD Form (Physician Orders. Medication order: Lorazapam 0.5 mg; oral tablet. Amoxicillin- clavulanate 875mg) 02/24/[address] [phone] Franklin Squires MD Refill Request (LORazepam (ATIVAN) 0.5 mg tab) 02/20/2024 1:30 PM CDT Office Visit [address] [phone] Franklin Squires MD Hospital F/U (02/15/24) 02/20/2024 Anticoagulation (warfarin) [address] [phone] 1, [facility] Anticoagulation 02/20/2024 Travel 02/18/2024 Anticoagulation (warfarin) [address] [phone] 1, [facility] Anticoagulation (acelis) 02/18/2024 Patient Outreach [facility] [address] [place] [address] Archana Stein, VALERIE Primary RN Care Management (Hospital DC:02/17/24/LACE:48/Pne [facility]); Hospital F/U 02/17/2024 Telephone [facility] [address] [place] [address] Franklin Squires MD Form (Service Order: Hold. Acute care hospitalization for pneumonia. Hold [facility] services pending discharge plans. Effective: 02/15/2024) 02/15/2024 4:34 PM CDT - 02/17/2024 2:45 PM CDT Hospital Encounter [facility] [address] [place] [address] [facility] Khakbaznejad, Alireza, MD Pneumonia due to infectious organism, unspecified laterality, unspecified part of lung (Primary Dx); History of DVT (deep vein thrombosis); Pressure injury of right buttock, stage 1 Discharge Disposition: Home Self Care 02/15/2024 Travel 02/15/2024 Refill [facility] [address] [place] [address] 1, [facility] Refill Request (Warfarin) 02/14/2024 3:10 PM CDT - 02/15/2024 2:45 PM CDT Hospital Encounter [facility] [address] [place] [address] Quan Corbett, ROXY Ramírez, MD Terence Bruno, DO Saida Waller Jonathan Philip, Malini Nayak NP Leukocytosis, unspecified type (Primary Dx); Fever, unspecified fever cause; Chills; Tachycardia; Pulmonary infiltrate; Elevated C-reactive protein (CRP); Pressure injury of deep tissue of left buttock Discharge Disposition: Critical Access Hospital 02/14/2024 Travel 02/05/2024 Anticoagulation (warfarin) [address] [phone] [place] [address] [facility] Anticoagulation (Acelis) 01/28/[address] [phone] Franklin Squires MD Refill Request (Oxycodone) 01/22/[address] [phone] Franklin Squires MD Form (Standard Written Order: Rehab Accessories./Cushion, Quadtro Select HI PRO 20x20 or 11x11 Cell) 01/22/[address] [phone] Franklin Squires MD Form (Standard Written Order: Repairs/Battery, M34 Gel 60AH C300 60 AMP Hours use 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) 01/22/2024 Anticoagulation (warfarin) [address] [phone] , [facility] Anticoagulation (Acelis) 01/16/[address] [phone] Franklin Squires MD Refill Request (Bupropion) 01/09/[address] [phone] Franklin Squires MD Form (Home Health Certification and Plan of Care.) 01/08/[address] [phone] Franklin Squires MD Form ([facility] 60 Day Summary Report) 01/08/2024 Anticoagulation (warfarin) [address] [phone] 1, [facility] Antico[facility] (acelis) 01/01/2024 Anticoagulation (warfarin) [address] [place] [phone] 1, [facility] Anticoagulation (Acelis) 12/29/[address] [place] [phone] Franklin Squires MD Refill Request (Oxycodone) 12/26/[address] [place] [address] Franklin Squires MD Form 12/26/[address] [place] [address] Franklin Squires MD Anticoagulation (Question/review) 12/25/2023 Anticoagulation (warfarin) [address] [place] [address] 1, [facility] Anticoagulation (Acelis) 12/19/2023 1:50 PM LOTTERY MANAGER Office Visit [address] [place] [phone] Franklin Squires MD Recheck 12/19/[address] [place] [address] Franklin Squires MD Refill Request (Dakin's Solution) 12/19/2023 Travel 12/18/2023 Anticoagulation (warfarin) [address] [place] [phone] 1, [facility] (Acelis) 12/16/[address] [place] [address] Franklin Squires MD Refill Request (Dakins 1/2 strength 0.25 soln) 12/13/[address] [place] [phone] Franklin Squires MD Form 12/12/[address] [place] [phone] Franklin Squires MD Refill Request (Gabapentin, Donepezil) 12/10/2023 Anticoagulation (warfarin) [address] [place] [address] , [facility] Anticoagulation (Acelis) 12/05/[address] [place] [address] Franklin Squires MD Form 12/03/2023 Anticoagulation (warfarin) [address] [place] [phone] 1, [facility] Anticoagulation (acelis) from Last 3 Months Immunizations Name Administration Dates Next Due COVID-19 vaccine (TinderBox-Bio NTech 30mcg/0.3mL) 12YO+ BIVALENT PF, MDV 10/22/2022 COVID-19 vaccine (TinderBox-[employer] NTech 30mcg/0.3mL) PF, MDV 01/25/2021,01/02/2021 Influenza A [...] HOME MONITOR AC Routine 01/08/2024 12:00 AM LOTTERY MANAGER HOME MONITOR AC Routine 01/01/2024 12:00 AM LOTTERY MANAGER HOME MONITOR AC Routine 12/25/2023 12:00 AM LOTTERY MANAGER HOME MONITOR AC Routine 12/18/2023 12:00 AM LOTTERY MANAGER HOME MONITOR AC Routine 12/10/2023 12:00 AM LOTTERY MANAGER HOME MONITOR AC Routine 12/03/2023 12:00 AM LOTTERY MANAGER from Last 3 Months Results * POTASSIUM (02/20/2024 2:15 PM CDT) Only the most recent of2 resultswithin the time period is included. POTASSIUM 4.3 3.5 - 5.1 mmol/L 02/20/2024 4:02 PM CDT [facility] Blood BLOOD SPECIMEN / Unknown Venipuncture / Unknown 02/20/2024 2:15 PM CDT 02/20/2024 3:06 PM CDT Franklin Squires MD CHEMISTRY Performing Organization Address City/State/[facility] Co de Phone Number [facility] [address] [place] [address] * (ABNORMAL) PROTIME-INR (02/20/2024 2:15 PM CDT) Only the most recent of5 resultswithin the time period is included. INR 1.9(H) <1.3 02/20/2024 2:38 PM CDT [facility] PROTIME 21.2(H) 10.3 - 12.3 sec 02/20/2024 2:38 PM CDT [facility] Blood BLOOD SPECIMEN / Unknown Venipuncture / Unknown 02/20/2024 2:15 PM CDT 02/20/2024 2:15 PM CDT Narrative [facility] - 02/20/2024 2:38 PM CDT [...] Franklin Squires MD HEMATOLOGY Performing Organization Address City/[facility]/ZIP Co de Phone Number [facility] [address] [place] [address] * HOME MONITOR AC (02/18/2024 12:00 AM CDT) Only the most recent of9 resultswithin the time period is included. Pathologist [facility] PATIENT REPORTED HOME INR 2.2 2.00 - 3.00 [facility] 02/18/2024 Franklin Squires MD OTHER Performing Organization Address City/[facility] Co de Phone Number [facility] [address] [place] [address] * (ABNORMAL) CBC WITH AUTO DIFFERENTIAL (02/17/2024 5:11 AM CDT) Only the most recent of2 resultswithin the time period is included. Pathologist [facility] WHITE BLOOD COUNT 7.0 4.5 - 11.0 thou/cu mm 02/17/2024 5:49 AM [facility] RED BLOOD COUNT 4.22(L) 4.30 - 5.90 mil/cu mm 02/17/2024 5:49 AM [facility] HEMOGLOBIN 10.9(L) 13.5 - 17.5 g/dL 02/17/2024 5:49 AM [facility] HEMATOCRIT 33.8(L) 37.0 - 53.0 % 02/17/2024 5:49 AM [facility] MCV 80 80 - 100 fL 02/17/2024 5:49 AM [facility] MCH 25.8(L) 26.0 - 34.0 pg 02/17/2024 5:49 AM [facility] MCHC 32.2 32.0 - 36.0 g/dL 02/17/2024 5:49 AM [facility] RDW 15.9(H) 11.5 - 15.5 % 02/17/2024 5:49 AM [facility] PLATELET COUNT 239 140 - 440 thou/cu mm 02/17/2024 5:49 AM [facility] MPV 9.6 6.5 - 11.0 fL 02/17/2024 5:49 AM [facility] NRBC 0.0 % 02/17/2024 5:49 AM [facility] ABS NRBC 0.0 thou /cu mm 02/17/2024 5:49 AM [facility] % NEUT 54.3 % 02/17/2024 5:49 AM [facility] % LYMPH 27.2 % 02/17/2024 5:49 AM [facility] % MONO 11.7 % 02/17/2024 5:49 AM [facility] % EOS 5.7 % 02/17/2024 5:49 AM [facility] % BASO 0.7 % 02/17/2024 5:49 AM [facility] % IMMATURE GRAN (METAS,MYELOS,MS OS) 0.4 % 02/17/2024 5:49 AM [facility] ABSOLUTE NEUTROPHILS 3.8 1.7 - 7.0 thou/cu mm 02/17/2024 5:49 AM [facility] ABSOLUTE LYMPHOCYTES 1.9 0.9 - 2.9 thou/cu mm 02/17/2024 5:49 AM [facility] ABSOLUTE MONOCYTES 0.8 <0.9 thou/cu mm 02/17/2024 5:49 AM [facility] ABSOLUTE EOSINOPHILS 0.4 <0.5 thou/cu mm 02/17/2024 5:49 AM CDT [facility] ABSOLUTE BASOPHILS 0.1 <0.3 thou/cu mm 02/17/2024 5:49 AM T [facility] ABSOLUTE IMMATURE GRANULOCYTES(MET ,MYELOS,PROS) 0.0 <0.3 thou/cu mm 02/17/2024 5:49 AM T [facility] Blood BLOOD SPECIMEN / Unknown Butterfly / Unknown 02/17/2024 5:11 AM CDT 02/17/2024 5:45 AM CDT John Ludwig MD HEMATOLOGY [facility] [place]IP [address] [address] [place] [address] * SODIUM (02/17/2024 5:11 AM CDT) SODIUM 140 136 - 145 mmol/L 02/17/2024 6:14 AM T [facility] Blood BLOOD SPECIMEN / Unknown Butterfly / Unknown 02/17/2024 5:11 AM CDT 02/17/2024 5:44 AM CDT John Ludwig MD CHEMISTRY [facility] [place]NAL ZIP [address] [address] [place] [address] * (ABNORMAL) CREATININE (02/17/2024 5:11 AM CDT) eGFR >90 >90 mL/min/1.7 3m2 02/17/2024 6:14 AM T [facility] Comment:As of 2022, eG FR is calculated by the CKD-EPI creatinine equation without race adjustment. ??eGFR can be influenced by muscle mass, exercise, and diet. ??The reported eGFR is an estimation only and is only applicable if the renal function is stable. CREATININE 0.56(L) 0.70 - 1.20 mg/dL 02/17/2024 6:14 AM CDT [facility] Blood BLOOD SPECIMEN / Unknown Butterfly / Unknown 02/17/2024 5:11 AM CDT 02/17/2024 5:44 AM CDT John Ludwig MD CHEMISTRY [facility] INTERNAL ZIP [address] [address] [facility] [place] [address] * MAGNESIUM (02/17/2024 5:11 AM CDT) MAGNESIUM 2.0 1.6 - 2.4 mg/dL 02/17/2024 7:44 AM CDT [facility] Blood BLOOD SPECIMEN / Unknown Butterfly / Unknown 02/17/2024 5:11 AM CDT 02/17/2024 5:44 AM CDT John Ludwig MD CHEMISTRY Performing Organization Address [facility]/ZIP Co de Phone Number [facility] INTERNAL ZIP [address] [address] [facility] [place] [address] * (ABNORMAL) GLUCOSE METER (02/16/2024 11:41 AM CDT) Only the most recent of6 resultswithin the time period is included. GLUCOSE METER 129(H) 65 - 100 mg/dL 02/16/2024 12:02 PM CDT [facility] Blood BLOOD SPECIMEN / Unknown 02/16/2024 11:41 AM CDT 02/16/2024 12:02 PM CDT John Ludwig MD CHEMISTRY Performing Organization Address City/[facility]/ZIP Co de Phone Number [facility] INTERNAL ZIP [phone] [facility] [place] [address] * LEGIONELLA AND PNEUMOCOCCAL URINE ANTIGEN (02/15/2024 10:25 AM CDT) STREP PNEUMO ANTIGEN Negative 02/15/2024 3:46 PM CDT [facility] Comment:Presumptive negative for pneumococcal pneumonia, suggesting no current or recent pneumococcal infection. Infection due to S. pneumoniae cannot be ruled out since the antigen present in the sample may be below the detection limit of the test. LEGIONELLA ANTIGEN Negative 02/15/2024 3:46 PM CDT [facility] Comment:Negative for L.pneum ophila serogroup 1 [...] 10:30 AM CDT James Ramírez MD MICROBIOLOGY Performing Organization Address City/[facility]/ZIP Co de Phone Number [facility] [address] [place] [address], * (ABNORMAL) WHITE BLOOD COUNT (02/15/2024 5:54 AM CDT) [facility] Signature WHITE BLOOD COUNT 11.7(H) 4.5 - 11.0 thou/cu mm 02/15/2024 7:16 AM CDT [facility] Blood BLOOD SPECIMEN / Unknown Venipuncture / Unknown 02/15/2024 5:54 AM CDT 02/15/2024 7:09 AM CDT James Ramírez MD HEMATOLOGY [facility] [address] [place] [address] * CT ABDOMEN PELVIS WO (02/14/2024 8:12 [...] 6-15 ng/L ng/L 02/14/2024 8:12 PM CDT [facility] Blood BLOOD SPECIMEN / Unknown Venipuncture / Unknown 02/14/2024 7:49 PM CDT 02/14/2024 7:53 PM CDT Quan RAMSEY CHEMISTRY [facility] [address] [place] [address] * (ABNORMAL) TROPONIN T (HS) ACUTE W/2HR REFLEX (02/14/2024 5:35 PM CDT) [facility] Signature TROPONIN T HS 33(H) 6-15 ng/L ng/L 02/14/2024 6:42 PM CDT [facility] Blood BLOOD SPECIMEN / Unknown Venipuncture / Unknown 02/14/2024 5:35 PM CDT 02/14/2024 5:38 PM CDT [facility] - 02/14/2024 6:42 PM CDT hs-cTnT [...] population. Quan RAMSEY CHEMISTRY Performing Organization Address [facility]/ZIP Co de Phone Number [facility] [address] [place] [address] * (ABNORMAL) URINALYSIS MICROSCOPIC (02/14/2024 5:07 PM CDT) RBC None Seen 0-2, None Seen /HPF 02/14/2024 6:44 PM CDT [facility] WBC 0-2 0-2, 3-5, None Seen /HPF 02/14/2024 6:44 PM CDT [facility] BACTERIA Moderate(A ) None Seen, Rare, Few Bacteria/ HPF 02/14/2024 6:44 PM CDT [facility] EPITHELIAL CELLS Few None Seen, Few Epi/HPF 02/14/2024 6:44 PM CDT [facility] Urine URINE SPECIMEN / Unknown Non-Blood / Unknown 02/14/2024 5:07 PM CDT 02/14/2024 5:28 PM CDT Quan RAMSEY URINE Performing Organization Address [facility] Co de Phone Number [facility] [address] [place] [address] * Urine culture - clean catch ADD ON (02/14/2024 5:07 PM CDT) CULTURE No growth (<1,000 CFU/mL) 02/16/2024 12:54 PM CDT [facility] Urine URINE SPECIMEN / Unknown Non-Blood / Unknown 02/14/2024 5:07 PM CDT 02/14/2024 5:28 PM CDT James Ramírez MD MICROBIOLOGY [facility] [address] [place] [address], [place] * (ABNORMAL) UA W/ SEDIMENT EXAM REFLEXED PER CRITERIA (02/14/2024 5:07 PM CDT) COLOR Yellow Yellow Color 02/14/2024 5:44 PM T [facility] CLARITY Clear Clear Clarity 02/14/2024 5:44 PM T [facility] SPECIFIC GRAVITY,URINE <=1.005(A) 1.010, 1.015, 1.020, 1.025 02/14/2024 5:44 PM T [facility] PH,URINE 6.0 6.0, 7.0, 8.0, 5.5, 6.5, 7.5, 8.5 02/14/2024 5:44 PM T [facility] UROBILINOGEN, QUALITATIVE Normal Normal EU/dl 02/14/2024 5:44 PM [facility] PROTEIN, URINE Negative Negative mg/dL 02/14/2024 5:44 PM T [facility] GLUCOSE, URINE Negative Negative mg/dL 02/14/2024 5:44 PM [facility] KETONES,URINE Negative Negative mg/dL 02/14/2024 5:44 PM T [facility] BILIRUBIN,URI NE Negative Negative 02/14/2024 5:44 PM [facility] OCCULT BLOOD,URINE Negative Negative 02/14/2024 5:44 PM [facility] NITRITE Positive(A) Negative 02/14/2024 5:44 PM T [facility] LEUKOCYTE ESTERASE Negative Negative 02/14/2024 5:44 PM T [facility] Urine URINE SPECIMEN / Unknown Non-Blood / Unknown 02/14/2024 5:07 PM CDT 02/14/2024 5:28 PM CDT Quan RAMSEY URINE [facility] [address] [place] [address] * XR CHEST 1 VIEW PORTABLE (02/14/2024 [...] CULTURE No Growth. 02/20/2024 5:27 AM CDT [facility] Blood BLOOD SPECIMEN / Unknown Butterfly / Unknown 02/14/2024 3:58 PM CDT 02/14/2024 4:02 PM CDT Quan RAMSEY MICROBIOLOG Y Performing Organization Address City/[facility]/ZIP Co de Phone Number [facility] [address] [place] [address] * LACTATE VENOUS (02/14/2024 3:50 PM CDT) LACTATE,VENOUS 1.4 0.5 - 2.0 mmol/L 02/14/2024 4:22 PM CDT [facility] Blood BLOOD SPECIMEN / Unknown Butterfly / Unknown 02/14/2024 3:50 PM CDT 02/14/2024 4:02 PM CDT Quan RAMSEY CHEMISTRY Performing Organization Address [facility] Co de Phone Number [facility] [address] [place] [address] * PROCALCITONIN (02/14/2024 3:50 PM CDT) [facility] PROCALCITONIN 0.10 ng/ml 02/14/2024 5:09 PM CDT [facility] Blood BLOOD SPECIMEN / Unknown Butterfly / Unknown 02/14/2024 3:50 PM CDT 02/14/2024 4:39 PM CDT Narrative [facility] - 02/14/2024 5:09 PM CDT Procalcitonin [...] Quan RAMSEY SEND OUTS Performing Organization Address [facility] Co de Phone Number [facility] [address] [place] [address] * (ABNORMAL) C-REACTIVE PROTEIN (02/14/2024 3:50 PM CDT) [facility] C-REACTIVE PROTEIN 10.9(H) <0.5 mg/dL 02/14/2024 5:09 PM CDT [facility] Blood BLOOD SPECIMEN / Unknown Butterfly / Unknown 02/14/2024 3:50 PM CDT 02/14/2024 4:02 PM CDT Quan RAMSEY CHEMISTRY Performing Organization Address [facility] Co de Phone Number [facility] [address] [place] [address] * (ABNORMAL) COMP METABOLIC PANEL (02/14/2024 3:50 PM T) SODIUM 134(L) 136 - 145 mmol/L 02/14/2024 4:24 PM [facility] POTASSIUM 4.3 3.5 - 5.1 mmol/L 02/14/2024 4:24 PM [facility] CHLORIDE 96(L) 98 - 107 mmol/L 02/14/2024 4:24 PM [facility] CO2,TOTAL 25 22 - 29 mmol/L 02/14/2024 4:24 PM [facility] ANION GAP 13 5 - 18 02/14/2024 4:24 PM [facility] GLUCOSE 118(H) 70 - 99 mg/dL 02/14/2024 4:24 PM [facility] CALCIUM 9.4 8.8 - 10.2 mg/dL 02/14/2024 4:24 PM [facility] BUN 15 8 - 23 mg/dL 02/14/2024 4:24 PM [facility] LABORATORY CREATININE 0.60(L) 0.70 - 1.20 mg/dL 02/14/2024 4:24 PM [facility] BUN/CREAT RATIO 25(H) 10 - 20 4:24 PM [facility] eGFR >90 >90 mL/min/1.7 3m2 02/14/2024 4:24 PM [facility] Comment:As of 2022, eG FR is calculated by the CKD-EPI creatinine equation without race adjustment. ??eGFR can be influenced by muscle mass, exercise, and diet. ??The reported eGFR is an estimation only and is only applicable if the renal function is stable. ALBUMIN 4.1 4.0 - 4.9 g/dL 02/14/2024 4:24 PM [facility] PROTEIN,TOTAL 7.8 6.0 - 8.0 g/dL 02/14/2024 4:24 PM [facility] BILIRUBIN,TOTAL 0.6 0.0 - 1.2 mg/dL 02/14/2024 4:24 PM CDT [facility] ALK PHOSPHATASE 117 40 - 129 IU/L 02/14/2024 4:24 PM CDT [facility] ALT (SGPT) 47 10 - 50 IU/L 02/14/2024 4:24 PM CDT [facility] AST (SGOT) 42 10 - 50 IU/L 02/14/2024 4:24 PM CDT [facility] Blood BLOOD SPECIMEN / Unknown Butterfly / Unknown 02/14/2024 3:50 PM CDT 02/14/2024 4:02 PM CDT Quan RAMSEY CHEMISTRY [facility] [address] [place] [address] from Last 3 Months Additional Health Concerns [...] 12 months since positive culture): resides in acute/skilled nursing care, receiving hemodialysis, has chronic open wounds/skin damage, has long-term percutaneous indwelling medical devices Exclusions for nares collection (if <12 months since positive culture) include all of the previous exclusions plus patients on antibiotics 7 days prior to collection 03/13/2018 2023 Advance Directives Documents on File Type Date Recorded Patient Rubbing Bed Operator Expl anation Healthcare Directive 05/09/2023 023 Healthcare [...] Code Status Discussion: Reviewed Preferences Care Teams General Adjuster Relationship Specialty Start Date End Date Franklin Squires MD [address] [place] [address] PCP - General Family Practice 10/18/15 Zelalem Cohen MD Physical Therapist 03/13/12 May Radnle MD Physical Medicine and Rehabilitation 03/13/12 Fred Craft LSW [address] [place] [address] Procurement Services Manager 05/03/17 Diane Charles MD [address] [place] [address] Surgery - Urology 01/17/23 Julia Ware, VALERIE [address] [place] [address] Registered Nurse 07/17/23
--- OUTSIDE RECORDS SUMMARY | 2024-03-02 12:45 | XMS_ITS | Encounter Summary ---
Author Name Unknown Organization [facility] Address [address], [place] [address] Care Team Providers Care Relays Draftsperson Name Role Phone Franklin Squires MD Primary [...] on filedocumented in this encounter Care Teams Relays Draftsperson Relationship Specialty Start Date End Date Franklin Squires MD 100 [facility] [place] [address] PCP - General Family Practice 03/08/16 documented as of this encounter
--- OUTSIDE RECORDS SUMMARY | 2024-03-02 12:45 | XMS_ITS | Encounter Summary ---
Author Name Unknown Organization [facility] Address [address], [place] [address] Care Team Providers Care Medical Transcription Radiology Name Role Phone Franklin Squires MD Primary Care Provider Encounter Details Date Type Department Care Team (Late st Contact Info) Description 12/14/2014 [facility] 401 Physical Medicine 401 [place] [address] May Randle MD [address] [place] [address] DETAILED PRODUCT DESCRIPTION Social History Tobacco Use [...] filedocumented in this encounter Care Teams Medical Transcription Radiology Relationship Specialty Start Date End Date Franklin Squires MD 100 [facility] [place] [address] PCP - General Family Practice 03/08/16 documented as of this encounter
--- OUTSIDE RECORDS SUMMARY | 2024-03-02 12:45 | XMS_ITS | Encounter Summary ---
Author Name Unknown Organization [facility] Address [address], [place] [address] Care Team Providers Care Investment Banking Analyst Name Role Phone Franklin Squires MD Primary Care Provider Encounter Details Date Type Department Care Team (Latest Contact Info) Description 12/11/2017 Correspondence Physiatry/Physical Medicine at [facility] 295 [facility] [place] [address] May Randle MD [address] [place] [address] [employer] Social History Tobacco Use [...] on filedocumented in this encounter Care Teams Investment Banking Analyst Relationship Specialty Start Date End Date Franklin Squires MD [address] [place] [address] [place] [address] PCP - General Family Practice 03/08/16 documented as of this encounter
--- OUTSIDE RECORDS SUMMARY | 2024-03-02 12:46 | XMS_ITS | Encounter Summary ---
Author Name Unknown Organization [facility] Address [address] [address] Care Team Providers Care Retail Sales Lead Name Role Phone Franklin Squires MD Primary Care Provider Encounter Details Date Type Department Care Team (Late st Contact Info) Description 11/13/2012 Correspondence [facility] Radiology [address] [place] [address] Radiology, Provider MRI SAFETY SHEET AND COMPATIBILITY [...] RADIOLOGY, PROVIDER - 11/13/2012 12:00 AM CST [employer] documented in this encounter Plan of Treatment Not on file documented as of this encounter Visit Diagnoses Not on filedocumented in this encounter Care Teams Retail Sales Lead Relationship Specialty Start Date End Date Franklin Squires MD 100 [facility] [place] [address] PCP - General Family Practice 03/08/16 documented as of this encounter
--- OUTSIDE RECORDS SUMMARY | 2024-03-02 12:46 | XMS_ITS | Encounter Summary ---
Author Name Unknown [facility] Address [address], [place] [address] Care Team Providers Care Oil Operator Name Role Phone Franklin Squires MD Primary Care Provider [phone] Encounter Details Date Type Department Care Team ([facility] st Contact Info) Description 10/26/2013 Correspondence [facility] Physical Therapy [address] [place] [address] Trudi Raymundo, PT [address] [place] [address] LETTER OF MEDICAL NECESSITY Social History Tobacco [...] Raymundo, PT - 10/26/2013 12:00 AM CST ALT TAMPING MACHINE OPERATOR documented in this encounter Plan of Treatment Not on file documented as of this encounter Visit Diagnoses Not on filedocumented in this encounter Care Teams Oil Operator Relationship Specialty Start Date End Date Franklin Squires MD 100 [facility] [place] [address] PCP - General Family Practice 03/08/16 documented as of this encounter
--- OUTSIDE RECORDS SUMMARY | 2024-03-02 12:46 | XMS_ITS | Encounter Summary ---
Author Name Unknown Organization [facility] Address [address], [place] [address] Care Team Providers Care Furnace Tapper Name Role Phone Franklin Squires MD Primary [...] filedocumented in this encounter Care Teams Furnace Tapper Relationship Specialty Start Date End Date Franklin Squires MD 100 [facility] [place] [address] PCP - General Family Practice 03/08/16 documented as of this encounter
--- OUTSIDE RECORDS SUMMARY | 2024-03-02 12:46 | XMS_ITS | Encounter Summary ---
Author Name Unknown Organization [facility] Address [address] [address] Care Team Providers Care Counselor Marriage And Family Name Role Phone Franklin Squires MD Primary Care Provider Encounter Details Date Type Department Care Team (Late st Contact Info) Description 07/28/2014 Consent for Procedure/Treatme nt [facility] Department INFORMED CONSENT RECORD Social History Tobacco [...] on filedocumented in this encounter Care Teams Counselor Marriage And Family Relationship Specialty Start Date End Date Franklin Squires MD 100 [facility] [place] [address] PCP - General Family Practice 03/08/16 documented as of this encounter
--- OUTSIDE RECORDS SUMMARY | 2024-03-02 12:46 | XMS_ITS | Encounter Summary ---
Author Name Unknown Organization [facility] Address [address], [place] [address] Care Team Providers Care Industrial Design Intern Name Role Phone Franklin Squires MD Primary Care Provider Encounter Details Date Type Department Care Team (Late st Contact Info) Description 03/11/2014 [facility] 401 Interventional Pain Management 401 [facility] [place] [address] Zelalem Cohen, DO [address] [place] [address] EMPI Social History Tobacco Use Types Packs/Day [...] filedocumented in this encounter Care Teams Industrial Design Intern Relationship Specialty Start Date End Date Franklin Squires MD 100 [facility] [place] [address] PCP - General Family Practice 03/08/16 documented as of this encounter
--- OUTSIDE RECORDS SUMMARY | 2024-03-02 12:46 | XMS_ITS | Encounter Summary ---
Author Name Unknown Organization [facility] Address [address] [address] Care Team Providers Care Second Miller Name Role Phone Franklin Squires MD Primary Care Provider Encounter Details Date Type Department Care Team (Late st Contact Info) Description 09/17/2013 Correspondence External to External, [place] [address] EMPOWERMENT RULES Social History Tobacco Use Types [...] External, Provider - 09/17/2013 12:00 AM CST EDUCATOR documented in this encounter Plan of Treatment Not on file documented as of this encounter Visit Diagnoses Not on filedocumented in this encounter Care Teams Second Miller Relationship Specialty Start Date End Date Franklin Squires MD 100 [facility] [place] [address] PCP - General Family Practice 03/08/16 documented as of this encounter
--- OUTSIDE RECORDS SUMMARY | 2024-03-02 12:46 | XMS_ITS | Encounter Summary ---
Author Name Unknown Organization [facility] Address [address] [address] Care Team Providers Care Rfid Systems Architect Name Role Phone Franklin Squires MD Primary Care Provider [phone] Encounter Details Date Type Department Care Team (Late st Contact Info) Description 06/11/2014 [facility]ence [facility] 401 Physical Medicine 401 [place] [address] May Randle MD [address] [place] [address] [facility] Social History Tobacco Use Types [...] on filedocumented in this encounter Care Teams Rfid Systems Architect Relationship Specialty Start Date End Date Franklin Squires MD 100 [facility] [address] PCP - General Family Practice 03/08/16 documented as of this encounter
--- OUTSIDE RECORDS SUMMARY | 2024-03-02 12:46 | XMS_ITS | Encounter Summary ---
Author Name Unknown Organization [facility] Address [address], [place] [address] Care Team Providers Care Computer Engineering Professor Name Role Phone Franklin Squires MD Primary Care Provider Encounter Details Date Type Department Care Team (Late st Contact Info) Description 04/24/2012 Correspondence [facility] Radiology [address] [place] [address] Radiology, Provider MRI SAFETY SHEET AND COMPATIBILITY [...] filedocumented in this encounter Care Teams Computer Engineering Professor Relationship Specialty Start Date End Date Franklin Squires MD 100 [facility] [address] PCP - General Family Practice 03/08/16 documented as of this encounter
--- OUTSIDE RECORDS SUMMARY | 2024-03-02 12:46 | XMS_ITS | Encounter Summary ---
Author Name Unknown Organization [facility] Address [address] [address] Care Team Providers Care Short Order Cook Name Role Phone Franklin Squires MD Primary Care Provider Encounter Details Date Type Department Care Team (Late st Contact Info) Description 07/28/2014 Outside Hospital External to External, Provider No address [address] ER VISIT/TRANSFER Social History Tobacco Use [...] on filedocumented in this encounter Care Teams Short Order Cook Relationship Specialty Start Date End Date Franklin Squires MD 100 [facility] [place] [address] PCP - General Family Practice 03/08/16 documented as of this encounter
--- OUTSIDE RECORDS SUMMARY | 2024-03-02 12:46 | XMS_ITS | Encounter Summary ---
Author Name Unknown Organization [facility] Address [address] [address] Care Team Providers Care Fast Food Supervisor Name Role Phone Franklin Squires MD Primary Care Provider [phone] Encounter Details Date Type Department Care Team (Latest Contact Info) Description 06/04/2014 [facility]ence [facility] 401 Interventional Pain Management 401 [facility] [place] [address] Zelalem Cohen, DO [address] [place] [address] MEDICAID PT INFORMATION EMPI RECOVERY Social History [...] on filedocumented in this encounter Care Teams Fast Food Supervisor Relationship Specialty Start Date End Date Franklin Squires MD 100 [facility] [place] [address] PCP - General Family Practice 03/08/16 documented as of this encounter
--- OUTSIDE RECORDS SUMMARY | 2024-03-02 12:46 | XMS_ITS | Encounter Summary ---
Author Name Unknown Organization [facility] Address [address] [place] [address] Care Team Providers Care Dormitory Maid Name Role Phone Franklin Squires MD Primary Care Provider [phone] Encounter Details Date Type Department Care Team (Late st Contact Info) Description 01/08/2013 Scanned History External to Transferred Record, Provider [facility] Social History Tobacco Use Types Packs/Day Years [...] on filedocumented in this encounter Care Teams Dormitory Maid Relationship Specialty Start Date End Date Franklin Squires MD 100 [facility] [place] [address] PCP - General Family Practice 03/08/16 documented as of this encounter
--- OUTSIDE RECORDS SUMMARY | 2024-03-02 12:46 | XMS_ITS | Encounter Summary ---
Author Name Unknown Organization [facility] Address [address] [place] [address] Care Team Providers Care Woods Warden Name Role Phone Franklin Squires MD Primary Care Provider Encounter Details Date Type Department Care Team (Late st Contact Info) Description 05/04/2014 [facility]ence [facility] 401 Physical Medicine 401 [facility] [place] [address] May Randle MD [address] [place] [address] LETTER OF MEDICAL NECESSITY FOR A WHEELCHAIR [...] on filedocumented in this encounter Care Teams Woods Warden Relationship Specialty Start Date End Date Franklin Squires MD 100 [facility] [place] [address] PCP - General Family Practice 03/08/16 documented as of this encounter
--- OUTSIDE RECORDS SUMMARY | 2024-03-02 12:46 | XMS_ITS | Encounter Summary ---
Author Name Unknown Organization [facility] Address [address] [address] Care Team Providers Care Tentering Machine Feeder Name Role Phone Franklin Squires MD Primary Care Provider Encounter Details Date Type Department Care Team (Late st Contact Info) Description 04/20/[address] [address] Radiology, Provider MRI SAFETY SHEET AND COMPATIBILITY [...] on filedocumented in this encounter Care Teams Tentering Machine Feeder Relationship Specialty Start Date End Date Franklin Squires MD 100 [facility] [place] [address] PCP - General Family Practice 03/08/16 documented as of this encounter
--- OUTSIDE RECORDS SUMMARY | 2024-03-02 12:46 | XMS_ITS | Encounter Summary ---
Author Name Unknown Organization [facility] Address [address], [place] [address] Care Team Providers Care Envelope Stuffer Name Role Phone Franklin Squires MD Primary Care Provider Encounter Details Date Type Department Care Team (Late st Contact Info) Description 02/05/2014 Correspondence [facility] Physical Therapy [address] [place] [address] Trudi Raymundo, PT [address] [place] [address] LETTER OF MEDICAL NECESSITY FOR A WHEELCHAIR [...] on filedocumented in this encounter Care Teams Envelope Stuffer Relationship Specialty Start Date End Date Franklin Squires MD 100 [facility] [place] [address] PCP - General Family Practice 03/08/16 documented as of this encounter
--- OUTSIDE RECORDS SUMMARY | 2024-03-02 12:46 | XMS_ITS | Encounter Summary ---
Author Name Unknown Organization [facility] Address [address] [place] [address] Care Team Providers Care Big 6 Dealer Name Role Phone Franklin Squires MD Primary Care Provider [phone] Encounter Details Date Type Department Care Team (Late st Contact Info) Description 07/23/2013 Correspondence [facility] 401 Interventional Pain Management 401 [facility] [place] [address] Zelalem Cohen DO [address] [place] [address] [employer] S[employer] Social History Tobacco Use Types [...] Cohen MD - 07/23/2013 12:00 AM CDT ING SALES REPRESENTATIVE documented in this encounter Plan of Treatment Not on file documented as of this encounter Visit Diagnoses Not on filedocumented in this encounter Care Teams Big 6 Dealer Relationship Specialty Start Date End Date Franklin Squires MD 100 [facility] [place] [address] PCP - General Family Practice 03/08/16 documented as of this encounter
--- OUTSIDE RECORDS SUMMARY | 2024-03-02 12:46 | XMS_ITS | Encounter Summary ---
Author Name Unknown Organization [facility] Address [address], [place] [address] Care Team Providers Care Health Administration Teacher Name Role Phone Franklin Squires MD Primary Care Provider Encounter Details Date Type Department Care Team (Late st Contact Info) Description 12/16/2013 Correspondence [facility] Radiology [address] [place] [address] Radiology, Provider MRI SAFETY SHEET AND COMPATIBILITY [...] Radiology, Provider - 12/16/2013 12:00 AM CST S AND SERVICE AGENT documented in this encounter Plan of Treatment Not on file documented as of this encounter Visit Diagnoses Not on filedocumented in this encounter Care Teams Health Administration Teacher Relationship Specialty Start Date End Date Franklin Squires MD 100 [facility] [place] [address] PCP - General Family Practice 03/08/16 documented as of this encounter
== END 2024-03-02 12:43 | disposition home or self-care (01) ==
LOC: WOUND 12:42
PROVIDERS: PCP Family Medicine; Visit Provider Nurse Practitioner Family
DX: L89.324 Pressure ulcer of left buttock, stage 4 (principal); M86.18 Other acute osteomyelitis, other site
CPT/HCPCS: 11042; 97605

== ENCOUNTER 2024-03-09 12:39 | Outpatient (CLI) | payer MEDICARE, OTHER, SELFPAY ==
--- OUTSIDE RECORDS SUMMARY | 2024-03-09 12:41 | XMS_ITS | Continuity of Care Document ---
Author Name [facility] Organization [facility] Care Team Providers Care Glost Kiln Operator Name Role Phone [facility] Unavailable Unavailable Problems Combined list of problems from 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 It does not include entries that were removed or entered in error. Problem Status Onset Date Problem Type Date of Resolution Comments Source Abnormal liver function Active Condition [facility] Anemia ([facility] 526028722) Active Condition [facility] Anxiety ([facility] 58666384) Active Condition [facility] Autonomic dysreflexia Active Condition [facility] Chronic Pain Syndrome ([facility] 351888127) Active Condition [facility] Colostomy present Active Condition [facility] Constipation ([facility] 28088635) Active Condition [facility] Continuous opioid dependence Active Condition [facility] COPD - Chronic Obstructive Pulmonary Disease ([facility] 16352218) Active Condition [facility] Dementia Active Condition [facility] Depression ([facility] 85511615) Active Condition [facility] Diabetes Mellitus Type 2 (SCT 75779712) Active Condition [facility] Ependymoma of spinal cord Active Condition [facility] Hearing Loss ([facility] 85401812) Active Condition [facility] History of Deep Vein Thrombosis ([facility] 848130048) Active Condition [facility] History of pressure injury Active Condition [facility] HTN - Hypertension ([facility]CT 20111327) Active Condition [facility] Hyperlipidemia ([facility] 05553323) Active Condition [facility] Hyponatremia Active Condition [facility] Long-term current use of anticoagulant Active Condition [facility] Neurogenic Bladder ([facility] 163949598) Active Condition [facility] Neurogenic bowel Active Condition [facility] Osteoporosis ([facility] 12389207) Active Condition [facility] Paraplegia Active Condition [facility] Spasticity Active Condition [facility] Suprapubic urinary catheter in situ Active Condition [facility] Supraventricular tachycardia Active Condition [facility] Tinnitus ([facility] 87216579) Active Condition [facility] Vitamin D Deficiency ([facility] 3549120) Active Condition [facility] Diagnosis: ICD-10-CM Z73.6 Limitation of activities due to disability Active Diagnosis [facility] Diagnosis: ICD-10-CM G82.20 Paraplegia, unspecified Active Diagnosis [facility] Diagnosis: ICD-10-CM Z43.3 Encounter for attention to colostomy Active Diagnosis [facility] Diagnosis: ICD-10-CM Z71.3 Dietary counseling and surveillance Active Diagnosis [facility] Diagnosis: ICD-10-CM F32.A Depression, unspecified Active Diagnosis [facility] Medications Combined list of outpatient medications from Department of Defense and [facility] Affairs facilities.Medications provided include 1) outpatient medications from the last 15 months, and 2) patient-reported medications. Medication Details Route Status Patient Instructions Prescription Expires Prescription Number Last Dispense Date Ordering Provider Order Date Order Qty Source ACETAMINOPH EN 500MG TAB TAKE TWO TABLETS BY MOUTH THREE TIMES A DAY NEEDED ORALLY ACTIVE Jagdish BARRETT N 2022 [facility] AMLODIPINE BESYLATE (AMLODIPINE BESYLATE), 5 MG, TABLET, ORAL, [employer] 1000 ea. BOTTLE Active [id number] 4 2023 90 Pharmac y [facility]ilit y AMLODIPINE BESYLATE (amlodipine besylate), 5 MG, TABLET, ORAL, [employer], 1000 ea. BOTTLE Active [id number] 4 2023 90 Pharmac y Data Transac tion Service Facilit y AMLODIPINE BESYLATE 2.5MG TAB TAKE TWO TABLETS BY MOUTH EVERY MORNING ORALLY ACTIVE Jagdish BARRETT 2022 [facility] AMOX TR-POTASSIU M CLAVULANATE (AMOXICILLI N/POTASSIUM CLAV), 875-125 MG, TABLET, ORAL, [employer] [facility], 20 ea. BOTTLE Active [id number] 2022 14 Pharmac y Data Transac tion Service Facilit y AMOXICILLIN -CLAVULANAT E POTASS (amoxicilli n/potassium clavulanate ), 875-125 MG, TABLET, ORAL, [facility],, 20 ea. BOTTLE Active [id number] 2023 56 Pharmac y Data Transac tion Service Facilit y ARIPIPRAZOL E (aripiprazo le), 2 MG, TABLET, ORAL, [facility] [facility], 500 ea. BOTTLE Active [id number] 2023 180 Pharmac y Data Transac tion Service Facilit y ARIPIPRAZOL E (aripiprazo le), 2 MG, TABLET, ORAL, [employer] [facility], 500 ea. BOTTLE Active [id number] 2023 180 Pharmac y Data Transac tion Service Facilit y ARIPIPRAZOL E TAB TAKE 2MG BY MOUTH TWICE A DAY ORALLY ACTIVE Jey HANSON 2021 [facility] ATIVAN (LORAZEPAM) , 0.5 MG, TABLET, ORAL, [employer], 100 ea. BOTTLE Cancele d [id number] : 2023 0 Pharmac y Data Transac tion Service Facilit y ATORVASTATI N CA 80MG TAB TAKE ONE-HALF TABLET BY MOUTH EVERY DAY ORALLY ACTIVE Jey HANSON 2021 [facility] ATORVASTATI N CALCIUM (atorvastat in calcium), 40 MG, TABLET, ORAL, [employer] [facility], 1000 ea. BOTTLE Active [id number] 2023 90 Pharmac y Data Transac tion Service Facilit y BACLOFEN (baclofen), 20 MG, TABLET, ORAL, [facility] 1000 ea. BOTTLE Active [id number] 2023 540 Pharmac y Data Transac tion Service Facilit y BACLOFEN (baclofen), 20 MG, TABLET, ORAL, [facility] 1000 ea. BOTTLE Active [id number] 2023 540 Pharmac y Data Transac tion Service Facilit y BACLOFEN 20MG TAB TAKE TWO TABLETS BY MOUTH THREE TIMES A DAY ORALLY ACTIVE Jagdish BARRETT 2022 [place] [facility] BUPROPION HCL 150MG 12HR TAB,SA TAKE ONE TABLET BY MOUTH TWICE A DAY ORALLY ACTIVE Jey HANSON 2021 [facility] BUPROPION HCL SR (bupropion HCl), 150 MG, TAB SR 12H, ORAL, [facility], 60 ea. BOTTLE Active [id number] 2023 180 Pharmac y Data Transac [...] ORAL, [facility], 50 ea. BOTTLE Active [id number] 2023 70 Pharmac y Data Transac tion Service Facilit y DONEPEZIL HCL (DONEPEZIL HCL), 5 MG, TABLET, ORAL, [employer] 1000 ea. BOTTLE Cancele d [id number] : 2023 0 Pharmac y Data Transac tion Service Facilit y DONEPEZIL HCL (DONEPEZIL HCL), 5 MG, TABLET, ORAL, [employer] 1000 ea. BOTTLE Active [id number] 2023 90 Pharmac y Data Transac tion Service Facilit y DONEPEZIL HCL 10MG TAB TAKE ONE-HALF TABLET BY MOUTH EVERY DAY ORALLY ACTIVE Jey HANSON 2021 [facility] DULOXETINE HCL (duloxetine HCl), 60 MG, CAPSULE DR, ORAL, [employer] 1000 ea. BOTTLE Active [id number] 2023 180 Pharmac y Data Transac tion Service Facilit y DULOXETINE HCL 30MG CAP,EC TAKE 2 CAPSULES BY MOUTH TWICE A DAY ORALLY ACTIVE Jey HANSON 2021 [facility] FAMOTIDINE (famotidine ), 20 MG, TABLET, ORAL, [employer] 1000 ea. BOTTLE Active [id number] 2023 180 Pharmac y Data Transac tion Service Facilit y FAMOTIDINE 20MG TAB TAKE ONE TABLET BY MOUTH TWICE A DAY ORALLY ACTIVE Jey HANSON 2021 [facility] FUROSEMIDE (furosemide ), 40 MG, TABLET, ORAL, [employer], 1000 ea. BOTTLE Active [id number] 2023 180 Pharmac y Data Transac tion Service Facilit y FUROSEMIDE 40MG TAB TAKE ONE TABLET BY MOUTH TWICE A DAY ORALLY ACTIVE Jey HANSON 2021 [facility] GABAPENTIN (gabapentin ), 400 MG, CAPSULE, ORAL, [employer] 500 ea. BOTTLE Active [id number] 2023 270 Pharmac y Data Transac tion Service Facilit y GABAPENTIN 400MG CAP TAKE 1 CAPSULE BY MOUTH THREE TIMES A DAY ORALLY ACTIVE Jey HANSON 2021 [facility] LORAZEPAM (lorazepam) , 0.5 MG, TABLET, ORAL, [employer], 1000 ea. BOTTLE Active [id number] 2023 120 Pharmac y Data Transac tion Service Facilit y LORAZEPAM (lorazepam) , 0.5 MG, TABLET, ORAL, [employer] [facility], 1000 ea. BOTTLE Active [id number] 2023 120 Pharmac y Data Transac tion Service Facilit y LORAZEPAM (lorazepam) , 0.5 MG, TABLET, ORAL, [employer], 1000 ea. BOTTLE Active [id number] 2023 120 Pharmac y Data Transac tion Service Facilit y LORAZEPAM (lorazepam) , 0.5 MG, TABLET, ORAL, [employer], 500 ea. BOTTLE Active [id number] 2023 120 Pharmac y Data Transac tion Service Facilit y LORAZEPAM 0.5MG TAB TAKE ONE TABLET BY MOUTH THREE TIMES A DAY AND TAKE TWO TABLETS BY MOUTH AT BEDTIME ORALLY ACTIVE Jagdish BARRETT 2022 [facility] MILK OF MAGNESIA TAKE 30ML BY MOUTH EVERY DAY NEEDED ORALLY ACTIVE Jey HANSON 2021 [facility] MULTIVITAMI NS CAP/TAB TAKE ONE TABLET BY MOUTH EVERY DAY ORALLY ACTIVE Jey HANSON 2021 [facility] NALOXONE HCL 4MG/SPRAY SOLN,SPRAY, NASAL SPRAY 1 DOSE IN ONE NOSTRIL DIRECTED PRN NOSTRI L ACTIVE Jagdish BARRETT N 2022 [facility] OXYCODONE HCL (OXYCODONE HCL), 10 MG, TABLET, ORAL, [employer] 100 ea. BOTTLE Active [id number] 2023 120 Pharmac y Data Transac tion Service Facilit y OXYCODONE HCL (OXYCODONE HCL), 10 MG, TABLET, ORAL, [employer] 100 ea. BOTTLE Active [id number] 2023 120 Pharmac y Data Transac tion Service Facilit y OXYCODONE HCL (OXYCODONE HCL), 10 MG, TABLET, ORAL, [employer] 100 ea. BOTTLE Active [id number] 2023 120 Pharmac y Data Transac tion Service Facilit y OXYCODONE HCL (OXYCODONE HCL), 10 MG, TABLET, ORAL, [employer] 100 ea. BOTTLE Active [id number] 2023 120 Pharmac y Data Transac tion Service Facilit y OXYCODONE HCL (OXYCODONE HCL), 10 MG, TABLET, ORAL, [employer] 100 ea. BOTTLE Active [id number] 2022 120 Pharmac y Data Transac tion Service Facilit y OXYCODONE HCL 5MG TAB TAKE TWO TABLETS BY MOUTH FOUR TIMES A DAY ORALLY ACTIVE Jagdish BARRETT 2022 [facility] POTASSIUM CHLORIDE (potassium chloride), 10 MEQ, TAB ER PRT, ORAL, [facility] [facility], 100 ea. BOTTLE Active [id number] 2023 180 Pharmac y Data Transac tion Service Facilit y POTASSIUM CHLORIDE (potassium chloride), 20 MEQ, TAB ER PRT, ORAL, [facility] [facility], 100 ea. BOTTLE Active [id number] 2023 90 Pharmac y Data Transac tion Service Facilit y POTASSIUM CHLORIDE 20MEQ TAB,SA (DISPERSIBL E) TAKE ONE TABLET BY MOUTH TWICE A DAY ORALLY ACTIVE Jey HANSON 2021 [facility] SANTYL (collagenas e Clostridium histolyticu m), 250 UNIT/G, OINT. (G), TOPICAL, WHITLOCK&N/UNI LUIS, 30 g TUBE Cancele d [id number] : 2023 0 Pharmac y Data Transac tion Service Facilit y WARFARIN SODIUM (warfarin sodium), 5 MG, TABLET, ORAL, [employer] 1000 ea. BOTTLE Cancele d [id number] : 2022 0 Pharmac y Data Transac tion Service Facilit y WARFARIN SODIUM (WARFARIN SODIUM), 5 MG, TABLET, ORAL, [employer], 1000 ea. BOTTLE Active [id number] 2023 12 Pharmac y Data Transac tion Service Facilit y WARFARIN SODIUM (WARFARIN SODIUM), 5 MG, TABLET, ORAL, [employer] [place], 1000 ea. BOTTLE Active [id number] 2023 40 Pharmac y Data Transac tion Service Facilit y WARFARIN SODIUM (WARFARIN SODIUM), 5 MG, TABLET, ORAL, [employer], 1000 ea. BOTTLE Cancele d [id number] : 2022 0 Pharmac y Data Transac tion Service Facilit y WARFARIN SODIUM (warfarin sodium), 7.5 MG, TABLET, ORAL, [employer], 100 ea. BOTTLE Active [id number] 2023 51 Pharmac y Data Transac tion Service Facilit y WARFARIN SODIUM (warfarin sodium), 7.5 MG, TABLET, ORAL, [employer], 100 ea. BOTTLE Active [id number] 2023 78 Pharmac y Data Transac tion Service Facilit y WARFARIN TAB TAKE 5MG BY MOUTH SUN/THUR S AND TAKE 7.5MG BY MOUTH ALL OTHER DAYS ORALLY ACTIVE Jagdish BARRETT 2022 [facility] Allergies, Adverse Reactions, Alerts Combined list of allergies from Department of [facility] and 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 It does not include entries that were removed or entered in error. Substance Category Reaction Severity Reaction type Status Date Reported Comments Source AMOXICILLIN Propensity to adverse reactions to drug (finding) Eruption active 2 [facility] METOLAZONE Propensity to adverse reactions to drug (finding) Itching active 2 [facility] MORPHINE Propensity to adverse reactions to drug (finding) Delirium active 2 [facility] PIPERACILLIN Propensity to adverse reactions to drug (finding) Eruption active 2 [facility] SULFA DRUGS Propensity to adverse reactions to drug (finding) Eruption active 2 [facility] TAZOBACTAM SODIUM Propensity to adverse reactions to drug (finding) Eruption active 2 [facility] Immunizations Combined list of available immunizations from the Department of [facility] and 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 Immunization Series Date Given Administered By Site Reaction Lot Number CVX Code Drug Boxcar Weigher Status Comments Source INFLUENZA, UNSPECIFIED FORMULATION 2021 88 complet ed 's recall [facility] TD (ADULT), 5 LF TETANUS TOXOID, PRESERVATIVE FREE, ADSORBED 2021 113 complet ed [facility] INFLUENZA, UNSPECIFIED FORMULATION 2020 88 complet ed [facility] COVID-19 (PFIZER), MRNA, LNP-S, PF, 30 MCG/0.3 ML DOSE 3 2020 208 complet ed [facility] COVID-19 (PFIZER), MRNA, LNP-S, PF, 30 MCG/0.3 ML DOSE 2 2020 208 complet ed [facility] COVID-19 (PFIZER), MRNA, LNP-S, PF, 30 MCG/0.3 ML DOSE 1 2020 208 complet ed [facility] PNEUMOCOCCAL CONJUGATE PCV 13 2014 133 complet ed [facility] ZOSTER LIVE 2012 121 complet ed [facility] PNEUMOCOCCAL POLYSACCHARID E PPV23 2010 33 complet ed [facility] TDAP 2010 115 complet ed MIIC [facility] Results Combined list of recent chemistry, hematology [...] Feb 05, 2023 03:10 PM Reporting Lab: [facility] [address] Performing Lab: [facility] [address] [place] [facility] CYSTATIN C WITH EGFR CYSTATIN C AND GLOMERULAR FILTRATION RATE BY CYSTATIN C-BASED FORMULA PANEL - SERUM OR PLASMA 53 60 02/13 L Specimen Type: PLASMA No comment entered. Ordering Provider: ANKUSH BOWMAN Report Released Date/Time: Feb 05, 2023 03:10 PM Reporting Lab: [facility] [address] Performing Lab: [facility] [address] [place] [facility] BASIC METABOLI C PANEL+MG CREATININE [MASS/VOLU ME] IN SERUM OR PLASMA 0.7 0.7 - 1.2 02/13 Specimen Type: PLASMA No comment entered. Ordering Provider: ANKUSH BOWMAN Report Released Date/Time: Feb 05, 2023 03:10 PM Reporting Lab: [facility] [address] Performing Lab: [facility] [address] [place] [facility] BASIC METABOLI C PANEL+MG UREA NITROGEN [MASS/VOLU ME] IN SERUM OR PLASMA 15 8 - 26 02/13 Specimen Type: PLASMA No comment entered. Ordering Provider: ANKUSH BOWMAN Report Released Date/Time: Feb 05, 2023 03:10 PM Reporting Lab: [facility] [address] Performing Lab: [facility] [address] [place] [facility] BASIC METABOLI C PANEL+MG GLUCOSE [MASS/VOLU ME] IN SERUM OR PLASMA 140 70 - 100 02/13 H Specimen Type: PLASMA No comment entered. Ordering Provider: ANKUSH BOWMAN Report Released Date/Time: Feb 05, 2023 03:10 PM Reporting Lab: [facility] [address] Performing Lab: [facility] [address] [place] [facility] BASIC METABOLI C PANEL+MG SODIUM [MOLES/VOL UME] IN SERUM OR PLASMA 135 136 - 145 02/13 L Specimen Type: PLASMA No comment entered. Ordering Provider: ANKUSH BOWMAN Report Released Date/Time: Feb 05, 2023 03:10 PM Reporting Lab: [facility] [address] Performing Lab: [facility] [address] [place] [facility] BASIC METABOLI C PANEL+MG POTASSIUM [MOLES/VOL UME] IN SERUM OR PLASMA 4.0 3.5 - 5.1 02/13 Specimen Type: PLASMA No comment entered. Ordering Provider: ANKUSH BOWMAN Report Released Date/Time: Feb 05, 2023 03:10 PM Reporting Lab: [facility] [address] Performing Lab: [facility] [address] [place] [facility] BASIC METABOLI C PANEL+MG CHLORIDE [MOLES/VOL UME] IN SERUM OR PLASMA 99 98 - 107 02/13 Specimen Type: PLASMA No comment entered. Ordering Provider: ANKUSH BOWMAN Report Released Date/Time: Feb 05, 2023 03:10 PM Reporting Lab: [facility] [address] Performing Lab: [facility] [address] [place] [facility] BASIC METABOLI C PANEL+MG CARBON DIOXIDE, TOTAL [MOLES/VOL UME] IN SERUM OR PLASMA 29 22 - 29 02/13 Specimen Type: PLASMA No comment entered. Ordering Provider: ANKUSH BOWMAN Report Released Date/Time: Feb 05, 2023 03:10 PM Reporting Lab: [facility] [address] Performing Lab: [facility] [address] [place] [facility] BASIC METABOLI C PANEL+MG CALCIUM [MASS/VOLU ME] IN SERUM OR PLASMA 9.2 8.4 - 10.2 02/13 Specimen Type: PLASMA No comment entered. Ordering Provider: ANKUSH BOWMAN Report Released Date/Time: Feb 05, 2023 03:10 PM Reporting Lab: [facility] [address] Performing Lab: [facility] [address] [place] [facility] BASIC METABOLI C PANEL+MG MAGNESIUM [MASS/VOLU ME] IN SERUM OR PLASMA 2.0 1.6 - 2.6 02/13 Specimen Type: PLASMA No comment entered. Ordering Provider: ANKUSH BOWMAN Report Released Date/Time: Feb 05, 2023 03:10 PM Reporting Lab: [facility] [address] Performing Lab: [facility] [address] [place] [facility] BASIC METABOLI C PANEL+MG ANION GAP IN SERUM OR PLASMA 7 5 - 15 02/13 Specimen Type: PLASMA No comment entered. Ordering Provider: ANKUSH BOWMAN Report Released Date/Time: Feb 05, 2023 03:10 PM Reporting Lab: [facility] [address] Performing Lab: [facility] [address] [place] [facility] BASIC METABOLI C PANEL+MG GLOMERULAR FILTRATION RATE/1.73 SQ M.PREDICTE D [VOLUME RATE/AREA] IN SERUM, PLASMA OR BLOOD BY CREATININE -BASED FORMULA (CKD-EPI) >90 60 02/13 Specimen Type: PLASMA No comment entered. Ordering Provider: ANKUSH BOWMAN Report Released Date/Time: Feb 05, 2023 03:10 PM Reporting Lab: [facility] [address] Performing Lab: [facility] [address] [place] [facility] URINALYS IS COLOR OF URINE YELLOW 10/08 Specimen Type: URINE No comment entered. Ordering Provider: ANKUSH BOWMAN Report Released Date/Time: Sep 24, 2022 01:55 PM Reporting Lab: [facility] [address] Performing Lab: [facility] [address] [place] [facility] URINALYS IS SPECIFIC GRAVITY OF URINE 1.023 1.003 - 1.035 10/08 Specimen Type: URINE No comment entered. Ordering Provider: ANKUSH BOWMAN Report Released Date/Time: Sep 24, 2022 01:55 PM Reporting Lab: [facility] [address] Performing Lab: [facility] [address] [place] [facility] URINALYS IS BILIRUBIN. TOTAL [PRESENCE] IN URINE BY TEST STRIP NEGATIVE 10/08 Specimen Type: URINE No comment entered. Ordering Provider: ANKUSH BOWMAN Report Released Date/Time: Sep 24, 2022 01:55 PM Reporting Lab: [facility] [address] Performing Lab: [facility] [address] [place] [facility] URINALYS IS KETONES [MASS/VOLU ME] IN URINE BY TEST STRIP NEGATIVE 10/08 Specimen Type: URINE No comment entered. Ordering Provider: ANKUSH BOWMAN Report Released Date/Time: Sep 24, 2022 01:55 PM Reporting Lab: [facility] [address] Performing Lab: [facility] [address] [place] [facility] URINALYS IS GLUCOSE [MASS/VOLU ME] IN URINE BY TEST STRIP NEGATIVE <30 - 30 10/08 Specimen Type: URINE No comment entered. Ordering Provider: ANKUSH BOWMAN Report Released Date/Time: Sep 24, 2022 01:55 PM Reporting Lab: [facility] [address] Performing Lab: [facility] [address] [place] [facility] URINALYS IS PROTEIN [MASS/VOLU ME] IN URINE BY TEST STRIP 30 <20 - 20 10/08 Specimen Type: URINE No comment entered. Ordering Provider: ANKUSH BOWMAN Report Released Date/Time: Sep 24, 2022 01:55 PM Reporting Lab: [facility] [address] Performing Lab: [facility] [address] [place] [facility] URINALYS IS PH OF URINE BY TEST STRIP 7.5 5.0 - 8.0 10/08 Specimen Type: URINE No comment entered. Ordering Provider: ANKUSH BOWMAN Report Released Date/Time: Sep 24, 2022 01:55 PM Reporting Lab: [facility] [address] Performing Lab: [facility] [address] [place] [facility] URINALYS IS LEUKOCYTES [#/AREA] IN URINE SEDIMENT BY MICROSCOPY HIGH POWER FIELD >180 0 - 7 10/08 H Specimen Type: URINE No comment entered. Ordering Provider: ANKUSH BOWMAN Report Released Date/Time: Sep 24, 2022 01:55 PM Reporting Lab: [facility] [address] Performing Lab: [facility] [address] [place] [facility] URINALYS IS BACTERIA [PRESENCE] IN URINE SEDIMENT BY LIGHT MICROSCOPY MANY 10/08 Specimen Type: URINE No comment entered. Ordering Provider: ANKUSH BOWMAN Report Released Date/Time: Sep 24, 2022 01:55 PM Reporting Lab: [facility] [address] Performing Lab: [facility] [address] [place] [facility] URINALYS IS ERYTHROCYT ES [#/AREA] IN URINE SEDIMENT BY MICROSCOPY HIGH POWER FIELD 33 0 - 3 10/08 H Specimen Type: URINE No comment entered. Ordering Provider: ANKUSH BOWMAN Report Released Date/Time: Sep 24, 2022 01:55 PM Reporting Lab: [facility] [address] Performing Lab: [facility] [address] [place] [facility] URINALYS IS APPEARANCE OF URINE EX.TURBI D 10/08 Specimen Type: URINE No comment entered. Ordering Provider: ANKUSH BOWMAN Report Released Date/Time: Sep 24, 2022 01:55 PM Reporting Lab: [facility] [address] Performing Lab: [facility] [address] [place] [facility] URINALYS IS EPITHELIAL CELLS.SQUA MOUS [#/AREA] IN URINE SEDIMENT BY MICROSCOPY HIGH POWER FIELD 1 10/08 Specimen Type: URINE No comment entered. Ordering Provider: ANKUSH BOWMAN Report Released Date/Time: Sep 24, 2022 01:55 PM Reporting Lab: [facility] [address] Performing Lab: [facility] [address] [place] [facility] URINALYS IS HEMOGLOBIN [PRESENCE] IN URINE BY TEST STRIP 1+ 10/08 Specimen Type: URINE No comment entered. Ordering Provider: ANKUSH BOWMAN Report Released Date/Time: Sep 24, 2022 01:55 PM Reporting Lab: [facility] [address] Performing Lab: [facility] [address] [place] [facility] URINALYS IS NITRITE [PRESENCE] IN URINE BY TEST STRIP NEGATIVE 10/08 Specimen Type: URINE No comment entered. Ordering Provider: ANKUSH BOWMAN Report Released Date/Time: Sep 24, 2022 01:55 PM Reporting Lab: [facility] [id number] Performing Lab: [facility] [id number] [place] [facility] URINALYS IS LEUKOCYTE CLUMPS [#/VOLUME] IN URINE BY AUTOMATED COUNT PRESENT 10/08 Specimen Type: URINE No comment entered. Ordering Provider: ANKUSH BOWMAN Report Released Date/Time: Sep 24, 2022 01:55 PM Reporting Lab: [facility] [address] Performing Lab: [facility] [address] [place] [facility] URINALYS IS LEUKOCYTE ESTERASE [PRESENCE] IN URINE BY TEST STRIP 500 10/08 Specimen Type: URINE No comment entered. Ordering Provider: ANKUSH BOWMAN Report Released Date/Time: Sep 24, 2022 01:55 PM Reporting Lab: [facility] [address] Performing Lab: [facility] [address] [place] [facility] ALBUMIN ALBUMIN [MASS/VOLU ME] IN SERUM OR PLASMA 4.2 3.5 - 5.2 10/08 Specimen Type: PLASMA No comment entered. Ordering Provider: ANKUSH BOWMAN Report Released Date/Time: Sep 24, 2022 01:55 PM Reporting Lab: [facility] [address] Performing Lab: [facility] [address] [place] [facility] PRE-ALBU MIN PREALBUMIN [MASS/VOLU ME] IN SERUM OR PLASMA 28.4 14.0 - 45.0 10/08 Specimen Type: SERUM No comment entered. Ordering Provider: ANKUSH BOWMAN Report Released Date/Time: Sep 24, 2022 01:55 PM Reporting Lab: [facility] [address] Performing Lab: [facility] [address] [place] [facility] CBC & DIFF LEUKOCYTES [#/VOLUME] IN BLOOD BY AUTOMATED COUNT 7.32 4.0 - 11.0 10/08 Specimen Type: BLOOD Comment: Automated Differentia l Performed Ordering Provider: ANKUSH BOWMAN Report Released Date/Time: Sep 24, 2022 01:55 PM Reporting Lab: [facility] [address] Performing Lab: [facility] [address] [place] [facility] CBC & DIFF ERYTHROCYT ES [#/VOLUME] IN BLOOD BY AUTOMATED COUNT 4.80 4.6 - 6.2 10/08 Specimen Type: BLOOD Comment: Automated Differentia l Performed Ordering Provider: ANKUSH BOWMAN Report Released Date/Time: Sep 24, 2022 01:55 PM Reporting Lab: [facility] [address] Performing Lab: [facility] [address] [place] [facility] CBC & DIFF HEMOGLOBIN [MASS/VOLU ME] IN BLOOD 14.7 13.5 - 17.9 10/08 Specimen Type: BLOOD Comment: Automated Differentia l Performed Ordering Provider: ANKUSH BOWMAN Report Released Date/Time: Sep 24, 2022 01:55 PM Reporting Lab: [facility] [address] Performing Lab: [facility] [address] [place] [facility] CBC & DIFF HEMATOCRIT [VOLUME FRACTION] OF BLOOD BY AUTOMATED COUNT 44.2 41 - 54 10/08 Specimen Type: BLOOD Comment: Automated Differentia l Performed Ordering Provider: ANKUSH BOWMAN Report Released Date/Time: Sep 24, 2022 01:55 PM Reporting Lab: [facility] [address] Performing Lab: [facility] [address] [place] [facility] CBC & DIFF MCV [ENTITIC VOLUME] BY AUTOMATED COUNT 92.1 80 - 100 10/08 Specimen Type: BLOOD Comment: Automated Differentia l Performed Ordering Provider: ANKUSH BOWMAN Report Released Date/Time: Sep 24, 2022 01:55 PM Reporting Lab: [facility] [address] Performing Lab: [facility] [address] [place] [facility] CBC & DIFF MCH [ENTITIC MASS] BY AUTOMATED COUNT 30.6 27 - 33 10/08 Specimen Type: BLOOD Comment: Automated Differentia l Performed Ordering Provider: ANKUSH BOWMAN Report Released Date/Time: Sep 24, 2022 01:55 PM Reporting Lab: [facility] [address] Performing Lab: [facility] [address] [place] [facility] CBC & DIFF MCHC [MASS/VOLU ME] BY AUTOMATED COUNT 33.3 32.0 - 37.5 10/08 Specimen Type: BLOOD Comment: Automated Differentia l Performed Ordering Provider: ANKUSH BOWMAN Report Released Date/Time: Sep 24, 2022 01:55 PM Reporting Lab: [facility] [address] Performing Lab: [facility] [address] [place] [facility] CBC & DIFF PLATELETS [#/VOLUME] IN BLOOD BY AUTOMATED COUNT 144 150 - 400 10/08 L Specimen Type: BLOOD Comment: Automated Differentia l Performed Ordering Provider: ANKUSH BOWMAN Report Released Date/Time: Sep 24, 2022 01:55 PM Reporting Lab: [facility] [address] Performing Lab: [facility] [address] [place] [facility] CBC & DIFF PLATELET MEAN VOLUME [ENTITIC VOLUME] IN BLOOD BY AUTOMATED COUNT 10.8 7.4 - 10.4 10/08 H Specimen Type: BLOOD Comment: Automated Differentia l Performed Ordering Provider: ANKUSH BOWMAN Report Released Date/Time: Sep 24, 2022 01:55 PM Reporting Lab: [facility] [address] Performing Lab: [facility] [address] [place] [facility] CBC & DIFF NEUTROPHIL S/100 LEUKOCYTES IN BLOOD BY MANUAL COUNT 55.5 10/08 Specimen Type: BLOOD Comment: Automated Differentia l Performed Ordering Provider: ANKUSH BOWMAN Report Released Date/Time: Sep 24, 2022 01:55 PM Reporting Lab: [facility] [address] Performing Lab: [facility] [address] [place] [facility] CBC & DIFF LYMPHOCYTE S/100 LEUKOCYTES IN BLOOD BY MANUAL COUNT 31.4 10/08 Specimen Type: BLOOD Comment: Automated Differentia l Performed Ordering Provider: ANKUSH BOWMAN Report Released Date/Time: Sep 24, 2022 01:55 PM Reporting Lab: [facility] [address] Performing Lab: [facility] [address] [place] [facility] CBC & DIFF MONOCYTES/ 100 LEUKOCYTES IN BLOOD BY AUTOMATED COUNT 10.2 10/08 Specimen Type: BLOOD Comment: Automated Differentia l Performed Ordering Provider: ANKUSH BOWMAN Report Released Date/Time: Sep 24, 2022 01:55 PM Reporting Lab: [facility] [address] Performing Lab: [facility] [address] [place] [facility] CBC & DIFF EOSINOPHIL S/100 LEUKOCYTES IN BLOOD BY AUTOMATED COUNT 2.2 10/08 Specimen Type: BLOOD Comment: Automated Differentia l Performed Ordering Provider: ANKUSH BOWMAN Report Released Date/Time: Sep 24, 2022 01:55 PM Reporting Lab: [facility] [address] Performing Lab: [facility] [address] [place] [facility] CBC & DIFF BASOPHILS/ 100 LEUKOCYTES IN BLOOD BY MANUAL COUNT 0.4 10/08 Specimen Type: BLOOD Comment: Automated Differentia l Performed Ordering Provider: ANKUSH BOWMAN Report Released Date/Time: Sep 24, 2022 01:55 PM Reporting Lab: [facility] [address] Performing Lab: [facility] [address] [place] [facility] CBC & DIFF ERYTHROCYT E DISTRIBUTI ON WIDTH [RATIO] BY AUTOMATED COUNT 15.9 11.5 - 14.5 10/08 H Specimen Type: BLOOD Comment: Automated Differentia l Performed Ordering Provider: ANKUSH BOWMAN Report Released Date/Time: Sep 24, 2022 01:55 PM Reporting Lab: [facility] [address] Performing Lab: [facility] [address] [place] [facility] CBC & DIFF LYMPHOCYTE S [#/VOLUME] IN BLOOD BY AUTOMATED COUNT 2.30 1.0 - 4.0 10/08 Specimen Type: BLOOD Comment: Automated Differentia l Performed Ordering Provider: ANKUSH BOWMAN Report Released Date/Time: Sep 24, 2022 01:55 PM Reporting Lab: [facility] [address] Performing Lab: [facility] [address] [place] [facility] CBC & DIFF MONOCYTES [#/VOLUME] IN BLOOD BY AUTOMATED COUNT 0.75 0.1 - 1.0 10/08 Specimen Type: BLOOD Comment: Automated Differentia l Performed Ordering Provider: ANKUSH BOWMAN Report Released Date/Time: Sep 24, 2022 01:55 PM Reporting Lab: [facility] [address] Performing Lab: [facility] [address] [place] [facility] CBC & DIFF NEUTROPHIL S [#/VOLUME] IN BLOOD BY AUTOMATED COUNT 4.06 2.0 - 7.7 10/08 Specimen Type: BLOOD Comment: Automated Differentia l Performed Ordering Provider: ANKUSH BOWMAN Report Released Date/Time: Sep 24, 2022 01:55 PM Reporting Lab: [facility] [address] Performing Lab: [facility] [address] [place] [facility] CBC & DIFF EOSINOPHIL S [#/VOLUME] IN BLOOD BY AUTOMATED COUNT 0.16 0 - 0.5 10/08 Specimen Type: BLOOD Comment: Automated Differentia l Performed Ordering Provider: ANKUSH BOWMAN Report Released Date/Time: Sep 24, 2022 01:55 PM Reporting Lab: [facility] [address] Performing Lab: [facility] [address] [place] [facility] CBC & DIFF BASOPHILS [#/VOLUME] IN BLOOD BY AUTOMATED COUNT 0.03 0 - 0.2 10/08 Specimen Type: BLOOD Comment: Automated Differentia l Performed Ordering Provider: ANKUSH BOWMAN Report Released Date/Time: Sep 24, 2022 01:55 PM Reporting Lab: [facility] [address] Performing Lab: [facility] [address] [place] [facility] CBC & DIFF IG(META,MY MALACHI,PRO) 0.3 10/08 Specimen Type: BLOOD Comment: Automated Differentia l Performed Ordering Provider: ANKUSH BOWMAN Report Released Date/Time: Sep 24, 2022 01:55 PM Reporting Lab: [facility] [address] Performing Lab: [facility] [address] [place] [facility] CBC & DIFF IMMATURE GRANULOCYT ES [PRESENCE] IN BLOOD BY AUTOMATED COUNT 0.02 0 - 0.1 10/08 Specimen Type: BLOOD Comment: Automated Differentia l Performed Ordering Provider: ANKUSH BOWMAN Report Released Date/Time: Sep 24, 2022 01:55 PM Reporting Lab: [facility] [address] Performing Lab: [facility] [address] [place] [facility] COMPREHE NSIVE METABOLI C PANEL+MG CREATININE [MASS/VOLU ME] IN SERUM OR PLASMA 0.7 0.7 - 1.2 10/08 Specimen Type: PLASMA No comment entered. Ordering Provider: ANKUSH BOWMAN Report Released Date/Time: Sep 24, 2022 01:55 PM Reporting Lab: [facility] [address] Performing Lab: [facility] [address] [place] [facility] COMPREHE NSIVE METABOLI C PANEL+MG UREA NITROGEN [MASS/VOLU ME] IN SERUM OR PLASMA 16 8 - 26 11/28 /2022 Specimen Type: PLASMA No comment entered. Ordering Provider: ANKUSH BOWMAN Report Released Date/Time: Sep 24, 2022 01:55 PM Reporting Lab: [facility] [address] Performing Lab: [facility] [address] [place] [facility] COMPREHE NSIVE METABOLI C PANEL+MG GLUCOSE [MASS/VOLU ME] IN SERUM OR PLASMA 94 70 - 100 10/08 Specimen Type: PLASMA No comment entered. Ordering Provider: ANKUSH BOWMAN Report Released Date/Time: Sep 24, 2022 01:55 PM Reporting Lab: [facility] [address] Performing Lab: [facility] [address] [place] [facility] COMPREHE NSIVE METABOLI C PANEL+MG SODIUM [MOLES/VOL UME] IN SERUM OR PLASMA 138 136 - 145 10/08 Specimen Type: PLASMA No comment entered. Ordering Provider: ANKUSH BOWMAN Report Released Date/Time: Sep 24, 2022 01:55 PM Reporting Lab: [facility] [address] Performing Lab: [facility] [address] [place] [facility] COMPREHE NSIVE METABOLI C PANEL+MG POTASSIUM [MOLES/VOL UME] IN SERUM OR PLASMA 3.9 3.5 - 5.1 10/08 Specimen Type: PLASMA No comment entered. Ordering Provider: ANKUSH BOWMAN Report Released Date/Time: Sep 24, 2022 01:55 PM Reporting Lab: [facility] [address] Performing Lab: [facility] [address] [place] [facility] COMPREHE NSIVE METABOLI C PANEL+MG CHLORIDE [MOLES/VOL UME] IN SERUM OR PLASMA 101 98 - 107 10/08 Specimen Type: PLASMA No comment entered. Ordering Provider: ANKUSH BOWMAN Report Released Date/Time: Sep 24, 2022 01:55 PM Reporting Lab: [facility] [address] Performing Lab: [facility] [address] [place] [facility] COMPREHE NSIVE METABOLI C PANEL+MG CARBON DIOXIDE, TOTAL [MOLES/VOL UME] IN SERUM OR PLASMA - 10/08 Specimen Type: PLASMA No comment entered. Ordering Provider: ANKUSH BOWMAN Report Released Date/Time: Sep 24, 2022 01:55 PM Reporting Lab: [facility] [address] Performing Lab: [facility] [address] [place] [facility] COMPREHE NSIVE METABOLI C PANEL+MG CALCIUM [MASS/VOLU ME] IN SERUM OR PLASMA 9.7 8.4 - 10.2 10/08 Specimen Type: PLASMA No comment entered. Ordering Provider: ANKUSH BOWMAN Report Released Date/Time: Sep 24, 2022 01:55 PM Reporting Lab: [facility] [address] Performing Lab: [facility] [address] [place] [facility] COMPREHE NSIVE METABOLI C PANEL+MG PROTEIN [MASS/VOLU ME] IN SERUM OR PLASMA 7.6 6.0 - 8.3 10/08 Specimen Type: PLASMA No comment entered. Ordering Provider: ANKUSH BOWMAN Report Released Date/Time: Sep 24, 2022 01:55 PM Reporting Lab: [facility] [address] Performing Lab: [facility] [address] [place] [facility] COMPREHE NSIVE METABOLI C PANEL+MG ALBUMIN [MASS/VOLU ME] IN SERUM OR PLASMA 4.2 3.5 - 5.2 10/08 Specimen Type: PLASMA No comment entered. Ordering Provider: ANKUSH BOWMAN Report Released Date/Time: Sep 24, 2022 01:55 PM Reporting Lab: [facility] [address] Performing Lab: [facility] [address] [place] [facility] COMPREHE NSIVE METABOLI C PANEL+MG BILIRUBIN. TOTAL [MASS/VOLU ME] IN SERUM OR PLASMA 0.6 0.2 - 1.2 10/08 Specimen Type: PLASMA No comment entered. Ordering Provider: ANKUSH BOWMAN Report Released Date/Time: Sep 24, 2022 01:55 PM Reporting Lab: [facility] [address] Performing Lab: [facility] [address] [place] [facility] COMPREHE NSIVE METABOLI C PANEL+MG MAGNESIUM [MASS/VOLU ME] IN SERUM OR PLASMA 2.1 1.6 - 2.6 10/08 Specimen Type: PLASMA No comment entered. Ordering Provider: ANKUSH BOWMAN Report Released Date/Time: Sep 24, 2022 01:55 PM Reporting Lab: [facility] [address] Performing Lab: [facility] [address] [place] [facility] COMPREHE NSIVE METABOLI C PANEL+MG ANION GAP IN SERUM OR PLASMA 9 5 - 15 10/08 Specimen Type: PLASMA No comment entered. Ordering Provider: ANKUSH BOWMAN Report Released Date/Time: Sep 24, 2022 01:55 PM Reporting Lab: [facility] [address] Performing Lab: [facility] [address] [place] [facility] COMPREHE NSIVE METABOLI C PANEL+MG ALKALINE PHOSPHATAS E [ENZYMATIC ACTIVITY/V OLUME] IN SERUM OR PLASMA 96 40 - 150 10/08 Specimen Type: PLASMA No comment entered. Ordering Provider: ANKUSH BOWMAN Report Released Date/Time: Sep 24, 2022 01:55 PM Reporting Lab: [facility] [address] Performing Lab: [facility] [address] [place] [facility] COMPREHE NSIVE METABOLI C PANEL+MG ALANINE AMINOTRANS FERASE [ENZYMATIC ACTIVITY/V OLUME] IN SERUM OR PLASMA 29 <55 - 55 10/08 Specimen Type: PLASMA No comment entered. Ordering Provider: ANKUSH BOWMAN Report Released Date/Time: Sep 24, 2022 01:55 PM Reporting Lab: [facility] [address] Performing Lab: [facility] [address] [place] [facility] COMPREHE NSIVE METABOLI C PANEL+MG ASPARTATE AMINOTRANS FERASE [ENZYMATIC ACTIVITY/V OLUME] IN SERUM OR PLASMA 22 <34 - 34 10/08 Specimen Type: PLASMA No comment entered. Ordering Provider: ANKUSH BOWMAN Report Released Date/Time: Sep 24, 2022 01:55 PM Reporting Lab: [facility] [address] Performing Lab: [facility] [address] [place] [facility] COMPREHE NSIVE METABOLI C PANEL+MG GLOMERULAR FILTRATION RATE/1.73 SQ M.PREDICTE D [VOLUME RATE/AREA] IN SERUM, PLASMA OR BLOOD BY CREATININE -BASED FORMULA (CKD-EPI) >90 60 10/08 Specimen Type: PLASMA No comment entered. Ordering Provider: ANKUSH BOWMAN Report Released Date/Time: Sep 24, 2022 01:55 PM Reporting Lab: [facility] [address] Performing Lab: [facility] [address] [place] [facility] CYSTATIN C WITH EGFR CYSTATIN C [MASS/VOLU ME] IN SERUM OR PLASMA 1.38 0.51 - 1.05 10/08 H Specimen Type: PLASMA No comment entered. Ordering Provider: ANKUSH BOWMAN Report Released Date/Time: Sep 24, 2022 01:55 PM Reporting Lab: [facility] [address] Performing Lab: [facility] [address] [place] [facility] CYSTATIN C WITH EGFR CYSTATIN C AND GLOMERULAR FILTRATION RATE BY CYSTATIN-B ASED FORMULA PANEL - SERUM OR PLASMA 48 60 10/08 L Specimen Type: PLASMA No comment entered. Ordering Provider: ANKUSH BOWMAN Report Released Date/Time: Sep 24, 2022 01:55 PM Reporting Lab: [facility] [address] Performing Lab: [facility] [address] [place] [facility] VIT D 25-OH,TO ZAMZAM 25-HYDROXY VITAMIN D3 [MASS/VOLU ME] IN SERUM OR PLASMA 54 12 - 50 10/08 H Specimen Type: SERUM No comment entered. Ordering Provider: ANKUSH BOWMAN Report Released Date/Time: Sep 24, 2022 01:55 PM Reporting Lab: [facility] [address] Performing Lab: [facility] [address] [place] [facility] CBC LEUKOCYTES [#/VOLUME] IN BLOOD BY AUTOMATED COUNT 6.27 4.0 - 11.0 05/28 Specimen Type: BLOOD No comment entered. Ordering Provider: GERMANIA HANSON Report Released Date/Time: May 28, 2022 03:06 PM Reporting Lab: [facility] [address] Performing Lab: [facility] [address] [facility] CBC ERYTHROCYT ES [#/VOLUME] IN BLOOD BY AUTOMATED COUNT 4.43 4.6 - 6.2 05/28 L Specimen Type: BLOOD No comment entered. Ordering Provider: GERMANIA HANSON Report Released Date/Time: May 28, 2022 03:06 PM Reporting Lab: [facility] [address] Performing Lab: [facility] [address] [facility] CBC HEMOGLOBIN [MASS/VOLU ME] IN BLOOD 12.9 13.5 - 17.9 05/28 L Specimen Type: BLOOD No comment entered. Ordering Provider: GERMANIA HANSON Report Released Date/Time: May 28, 2022 03:06 PM Reporting Lab: [facility] [address] Performing Lab: [facility] [address] [facility] CBC HEMATOCRIT [VOLUME FRACTION] OF BLOOD BY AUTOMATED COUNT 40.2 41 - 54 05/28 L Specimen Type: BLOOD No comment entered. Ordering Provider: GERMANIA HANSON Report Released Date/Time: May 28, 2022 03:06 PM Reporting Lab: [facility] [address] Performing Lab: [facility] [address] [facility] CBC MCV [ENTITIC VOLUME] BY AUTOMATED COUNT 90.7 80 - 100 05/28 Specimen Type: BLOOD No comment entered. Ordering Provider: GERMANIA HANSON Report Released Date/Time: May 28, 2022 03:06 PM Reporting Lab: [facility] [address] Performing Lab: [facility] [address] [facility] CBC MCH [ENTITIC MASS] BY AUTOMATED COUNT 29.1 27 - 33 05/28 Specimen Type: BLOOD No comment entered. Ordering Provider: GERMANIA HANSON Report Released Date/Time: May 28, 2022 03:06 PM Reporting Lab: [facility] [address] Performing Lab: [facility] [address] [facility] CBC MCHC [MASS/VOLU ME] BY AUTOMATED COUNT 32.1 32.0 - 37.5 05/28 Specimen Type: BLOOD No comment entered. Ordering Provider: GERMANIA HANSON Report Released Date/Time: May 28, 2022 03:06 PM Reporting Lab: [facility] [address] Performing Lab: [facility] [address] [facility] CBC PLATELETS [#/VOLUME] IN BLOOD BY AUTOMATED COUNT 183 150 - 400 05/28 Specimen Type: BLOOD No comment entered. Ordering Provider: GERMANIA HANSON Report Released Date/Time: May 28, 2022 03:06 PM Reporting Lab: [facility] [address] Performing Lab: [facility] [address] [facility] CBC PLATELET MEAN VOLUME [ENTITIC VOLUME] IN BLOOD BY AUTOMATED COUNT 10.6 7.4 - 10.4 05/28 H Specimen Type: BLOOD No comment entered. Ordering Provider: GERMANIA HANSON Report Released Date/Time: May 28, 2022 03:06 PM Reporting Lab: [facility] [address] Performing Lab: [facility] [address] [facility] CBC ERYTHROCYT E DISTRIBUTI ON WIDTH [RATIO] BY AUTOMATED COUNT 13.5 11.5 - 14.5 05/28 Specimen Type: BLOOD No comment entered. Ordering Provider: GERMANIA HANSON Report Released Date/Time: May 28, 2022 03:06 PM Reporting Lab: [facility] [address] Performing Lab: [facility] [address] [facility] Encounters Combined list of: 1) Encounters from [facility] Affairs facilities going back up to thelast 18 months. 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 Location Location Details Encounter Type Encounter Number Reason For Visit Attending Provider ADM Date DC Date Status Disposition Source [facility] Outpatient Encounter [id number] 09/20 [facility] OFFICE O/P EST MINIMAL PROB [id number] Diagnos is: ICD-10- CM G82.20 Paraple mary kay, unspeci fied
Jey PATTON V 10/08 [facility] ASSISTIVE TECHNOLOGY ASSESS [id number] Diagnos is: ICD-10- CM Z73.6 Limitat ion of activit ies due to disabil ity<br/ > BOUSLOG,RY AN P 10/08 [facility] Outpatient Encounter [id number] 10/09 [facility] Outpatient Encounter [id number] 10/11 [facility] HC PRO PHONE CALL 5-10 MIN [id number] Diagnos is: ICD-10- CM Z73.6 Limitat ion of activit ies due to disabil ity<br/ > AVE HALEY 12/13 [facility] Outpatient Encounter [id number] 01/08 [facility] HC PRO PHONE CALL 21-30 MIN [id number] Diagnos is: ICD-10- CM G82.20 Paraple mary kay, unspeci fied
Hever CASTRO 01/08 [facility] Outpatient Encounter [id number] 01/09 [facility] DIABETIC MANAGEMENT PROGRAM, [id number] [phone] Diagnos is: ICD-10- CM G82.20 Paraple mary kay, unspeci fied
SERJIOMIGUEL ANGELPool Dubon 01/30 [facility] Outpatient Encounter [id number] 02/05 [facility] MTMS BY PHARM ADDL 15 MIN [id number] Diagnos is: ICD-10- CM G82.20 Paraple mary kay, unspeci fied
MANPREET BARRETT 02/05 [facility] OT EVAL LOW COMPLEX 30 MIN [id number] Diagnos is: ICD-10- CM Z73.6 Limitat ion of activit ies due to disabil ity<br/ > Bryn PARDO 02/05 [facility] OFF/OP EST MAY X REQ PHY/QHP [id number] Diagnos is: ICD-10- CM G82.20 Paraple mary kay, unspeci fied
JOSUÉ ZAMORA 02/05 [facility] PSYCH DIAGNOSTIC EVALUATION [id number] Diagnos is: ICD-10- CM F32.A Depress ion, unspeci fied
BINU GAMEZ 02/05 [facility] OFFICE O/P EST MOD 30-39 MIN [id number] Diagnos is: ICD-10- CM G82.20 Paraple mary kay, unspeci fied
ME LOGAN BOWMAN 02/05 [facility] PSYCH DIAGNOSTIC EVALUATION [id number] Diagnos is: ICD-10- CM G82.20 Paraple mary kay, unspeci fied
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
VIOLA YOON 02/08 [facility] OFF[facility] O/P EST HI 40-54 MIN [id number] Diagnos is: ICD-10- CM G82.20 Paraple mary kay, unspeci fied
ME LOGAN BOWMAN 02/13 [facility] WHEELCHAIR MNGMENT TRAINING [id number] Diagnos is: ICD-10- CM Z73.6 Limitat ion of activit ies due to disabil ity<br/ > BOUSLOG,RY AN P 02/13 [facility] Outpatient Encounter [id number] 02/19 [facility] HC PRO PHONE CALL 11-20 MIN [id number] Diagnos is: ICD-10- CM Z73.6 Limitat ion of activit ies due to disabil ity<br/ > BOUSLOG,RY AN P 04/23 [facility] Outpatient Encounter [id number] 04/24 [facility] Outpatient Encounter [id number] 05/24 [facility] OFF/OP EST MAY X REQ PHY/QHP [id number] Diagnos is: ICD-10- CM G82.20 Paraple mary kay, unspeci fied
VIOLA YOON NDA 05/28 [facility] WHEELCHAIR MNGMENT TRAINING [id number] Diagnos is: ICD-10- CM Z73.6 Limitat ion of activit ies due to disabil ity<br/ > BOUSLOG,RY AN P 06/10 [facility] Outpatient Encounter [id number] 10/28 [facility] Outpatient Encounter [id number] 11/20 [facility] Social History Combined list of available smoking, tobacco, and other social history from 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 Social History Type Response Date Comment [facility] e Tobacco smoking status [facility] NEVER USED 05/28/20 22 [facility] This section is an empty social history section. DoD Advance Directives List of completed, amended, or rescinded Advance Directives on record at Department of 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 An actual copy of the Directive is not included. Date Advance Directive Provider Source 02/05/2023 ADVANCE DIRECTIVE DISCUSSION GUSTAVO ABAD [facility]
--- OUTSIDE RECORDS SUMMARY | 2024-03-09 12:42 | XMS_ITS | Encounter Summary ---
Author Name Unknown Organization [facility] Address [address] [address] Care Team Providers Care Employment Supervisor Name Role Phone Franklin Squires MD Primary Care Provider Encounter Details Date Type Department Care Team (Late st Contact Info) Description 07/28/2014 Consent for Procedure/Treatme nt [facility] INFORMED [...] on filedocumented in this encounter Care Teams Employment Supervisor Relationship Specialty Start Date End Date Franklin Squires MD 100 [facility] [place] [address] PCP - General Family Practice 03/08/16 documented as of this encounter
--- OUTSIDE RECORDS SUMMARY | 2024-03-09 12:42 | XMS_ITS | Encounter Summary ---
Author Name Unknown Organization [facility] Address [address] [place] [address] Care Team Providers Care Museum Tour Guide Name Role Phone Franklin Squires MD Primary Care Provider Encounter Details Date Type Department Care Team (Late st Contact Info) Description 06/07/2015 Correspondence [facility] Radiology [address] [place] [address] Radiology, Provider MRI SAFETY SHEET AND COMPATIBILITY [...] on filedocumented in this encounter Care Teams Museum Tour Guide Relationship Specialty Start Date End Date Franklin Squires MD [address] [place] [address] [place] [address] PCP - General Family Practice 03/08/16 documented as of this encounter
--- OUTSIDE RECORDS SUMMARY | 2024-03-09 12:42 | XMS_ITS | Encounter Summary ---
Author Name Unknown Organization [facility] Address [address], [place] [address] Care Team Providers Care Radio Installer Name Role Phone Franklin Squires MD Primary Care Provider [phone] Encounter Details Date Type Department Care Team (Latest Contact Info) Description 06/04/2014 [facility] 401 Interventional Pain Management 401 [facility] [place] [address] Zelalem Cohen, DO [address] [place] [address] MEDICAID PT INFORMATION EMPI RECOVERY Social History [...] on filedocumented in this encounter Care Teams Radio Installer Relationship Specialty Start Date End Date Franklin Squires MD 100 [facility] [place] [address] PCP - General Family Practice 03/08/16 documented as of this encounter
--- OUTSIDE RECORDS SUMMARY | 2024-03-09 12:42 | XMS_ITS | Encounter Summary ---
Author Name Unknown Organization [facility] Address [address], [place] [address] Care Team Providers Care Pharmacognosist Name Role Phone Franklin Squires MD Primary Care Provider Encounter Details Date Type Department Care Team ([facility] st Contact Info) Description 02/09/2016 [facility] 401 NeuroSurgery 401 [facility] [place], [place] [id number] Jodi Aguila PA-C [address] [place] [address] PATIENT LIFT PRESCRIPTION Social History Tobacco Use [...] on filedocumented in this encounter Care Teams Pharmacognosist Relationship Specialty Start Date End Date Franklin Squires MD 100 [facility] [place] [address] PCP - General Family Practice 03/08/16 documented as of this encounter
--- OUTSIDE RECORDS SUMMARY | 2024-03-09 12:42 | XMS_ITS | Encounter Summary ---
Author Name Unknown Organization [facility] Address [address] [address] Care Team Providers Care Roll Up Helper Name Role Phone Franklin Squires MD Primary Care Provider Encounter Details Date Type Department Care Team (Late st Contact Info) Description 08/20/2014 Outside Hospital External to [facility] HOSP-H/P Social History Tobacco Use Types [...] filedocumented in this encounter Care Teams Roll Up Helper Relationship Specialty Start Date End Date Franklin Squires MD [facility] [place] [address] PCP - General Family Practice 03/08/16 documented as of this encounter
--- OUTSIDE RECORDS SUMMARY | 2024-03-09 12:42 | XMS_ITS | Encounter Summary ---
Author Name Unknown Organization [facility] Address [address], [place] [address] Care Team Providers Care Rug Inspector Helper Name Role Phone Franklin Squires MD Primary Care Provider Encounter Details Date Type Department Care Team (Late st Contact Info) Description 03/11/2014 [facility] 401 Interventional Pain Management 401 [place] [address] Zelalem Cohen, DO [address] [place] [address] EMPI Social History Tobacco Use Types Packs/Day [...] on filedocumented in this encounter Care Teams Rug Inspector Helper Relationship Specialty Start Date End Date Franklin Squires MD 100 [facility] [place] [address] PCP - General Family Practice 03/08/16 documented as of this encounter
--- OUTSIDE RECORDS SUMMARY | 2024-03-09 12:42 | XMS_ITS | Encounter Summary ---
Author Name Unknown Organization [facility] Address [address], [place] [address] Care Team Providers Care Agricultural Service Technician Name Role Phone Franklin Squires MD Primary Care Provider [phone] Encounter Details Date Type Department Care Team (Late st Contact Info) Description 11/23/2015 Correspondence External to External, [place] [address] LETTER [facility] Social History Tobacco Use Types Packs/Day [...] on filedocumented in this encounter Care Teams Agricultural Service Technician Relationship Specialty Start Date End Date Franklin Squires MD 100 [facility] [place] [address] PCP - General Family Practice 03/08/16 documented as of this encounter
--- OUTSIDE RECORDS SUMMARY | 2024-03-09 12:42 | XMS_ITS | Encounter Summary ---
Author Name Unknown Organization [facility] Address [address] [place] [address] Care Team Providers Care Director Of Music Therapy Name Role Phone Franklin Squires MD Primary Care Provider [phone] Encounter Details Date Type Department Care Team (Late st Contact Info) Description 01/06/2016 Correspondence [facility] Radiology [address] [place] [address] Radiology, Provider MRI SAFETY SHEET AND COMPATIBILITY [...] in this encounter Care Teams Director Of Music Therapy Relationship Specialty Start Date End Date Franklin Squires MD [address] [place] [address] [place] [address] PCP - General Family Practice 03/08/16 documented as of this encounter
--- OUTSIDE RECORDS SUMMARY | 2024-03-09 12:42 | XMS_ITS | Encounter Summary ---
Author Name Unknown Organization [facility] Address [address], [place] [address] Care Team Providers Care Manager Care Management Name Role Phone Franklin Squires MD Primary Care Provider [phone] Encounter Details Date Type Department Care Team (Late st Contact Info) Description 12/14/2014 [facility] 401 Physical Medicine 401 [place] [address] May Randle MD [address] [place] [address] DETAILED PRODUCT DESCRIPTION Social History Tobacco Use [...] filedocumented in this encounter Care Teams Manager Care Management Relationship Specialty Start Date End Date Franklin Squires MD 100 [facility] [place] [address] PCP - General Family Practice 03/08/16 documented as of this encounter
--- OUTSIDE RECORDS SUMMARY | 2024-03-09 12:42 | XMS_ITS | Encounter Summary ---
Author Name Unknown Organization [facility] Address [address] [address] Care Team Providers Care Monitor Worker Name Role Phone Franklin Squires MD Primary Care Provider Encounter Details Date Type Department Care Team (Latest Contact Info) Description 12/11/2017 Correspondence Physiatry/Physical Medicine at [facility] 295 [facility] [place] [address] May Randle MD [address] [place] [address] [employer] Social History Tobacco Use [...] on filedocumented in this encounter Care Teams Monitor Worker Relationship Specialty Start Date End Date Franklin Squires MD [address] [place] [address] [place] [address] PCP - General Family Practice 03/08/16 documented as of this encounter
--- OUTSIDE RECORDS SUMMARY | 2024-03-09 12:42 | XMS_ITS | Encounter Summary ---
Author Name Unknown Organization [facility] Address [address] [place] [address] Care Team Providers Care Surveillance Operator Name Role Phone Franklin Squires MD Primary Care Provider [phone] Encounter Details Date Type Department Care Team (Late st Contact Info) Description 05/04/2014 [facility]ence [facility] 401 Physical Medicine 401 [place] [address] May Randle MD [address] [place] [address] LETTER OF MEDICAL NECESSITY FOR A WHEELCHAIR [...] on filedocumented in this encounter Care Teams Surveillance Operator Relationship Specialty Start Date End Date Franklin Squires MD 100 [facility] [place] [address] PCP - General Family Practice 03/08/16 documented as of this encounter
--- OUTSIDE RECORDS SUMMARY | 2024-03-09 12:42 | XMS_ITS | Encounter Summary ---
Author Name Unknown Organization [facility] Address [address], [place] [address] Care Team Providers Care Concrete Journeyman Name Role Phone Franklin Squires MD Primary Care Provider [phone] Encounter Details Date Type Department Care Team (Late st Contact Info) Description 12/16/2014 Correspondence External to External, Provider No address [place] [phone] MEDICARE PLAN OF CARE RECERT Social History [...] on filedocumented in this encounter Care Teams Concrete Journeyman Relationship Specialty Start Date End Date Franklin Squires MD 100 [facility] [place] [address] PCP - General Family Practice 03/08/16 documented as of this encounter
--- OUTSIDE RECORDS SUMMARY | 2024-03-09 12:42 | XMS_ITS | Clinical Summary ---
Author Name Unknown [facility] Address [address] [place] [address] Care Team Providers Care Plant Puller Name Role Phone Franklin Squires MD Primary Care Provider [phone] Source Comments You are receiving this document as you are listed as the primary care provider,follow-up provider, or the patient has been referred to you for consultation.This is in compliance with the Medicare and[facility]igh[facility] EHR Incentive Program,which states Providers who transition their patient to another setting of careor provider of care or refers their patient to another provider of care shouldprovide summary care record for each transition of care or referral. [facility] Allergies Active Allergy Reactions Criticality Noted Date [...] 0 06/10/2014 History of anticoagulant therapy 02/17/2014 custodial current use of anticoagulant therapy 0 02/17/2014 [...] Comments Blood Pressure 120/63 01/18/2022 12:59 PM RANGE OPERATOR Pulse 87 01/18/2022 12:59 PM RANGE OPERATOR Temperature 36.3 ??C (97.4 ??F) 01/18/2022 [...] this topic Medical Devices Implanted Type Area Supply Cataloguer Device Identifier Shelf Expiration Date Model / Serial / Lot [id number] 4ml Tisseel Explanted:([place] ntity not on file) BIOLOGIC N/A: NECK Lynne Fenwall 09/10/2011 [id number] / [id number] / [id number] Description:posterior Cath Intrathecal Indura - [id number] Implanted:Qty: 1 on 05/09/2010 at [facility] DEVICE Right: LUMBAR SPINE [employer] 01/18/2012 8709 / N/A / [id number] Cath Intrathecal Indura - [id number] Implanted:Qty: 1 on 05/29/2010 at [facility] DEVICE [employer] 8709 / / Scr Indira Conic 7.3x80 - [id number] Implanted:Qty: 1 on 03/13/2011 at [facility] DEVICE Right: FEMUR DISTAL [employer] 02.207.28 0 / NONE / NONE Plt Lcp Cndl Rt 4.5x170 6h - [id number] Implanted:Qty: 1 on 03/13/2011 at [facility] DEVICE Right: FEMUR DISTAL [employer] 222.656 / NONE / NONE Description:6 hole 170mm rig ht 4.5mm lcp condylar plate Scr Didier Ss Sftp 4.5x40 - [id number] Implanted:Qty: 1 on 03/13/2011 at [facility] DEVICE Left: FEMUR DISTAL [employer] 214.840 / NONE / NONE Scr Didier Ss Sftp 4.5x50 - [id number] Implanted:Qty: 1 on 03/13/2011 at [facility] DEVICE Left: FEMUR DISTAL [employer] 214.850 / NONE / NONE Scr Indira Lk 5.0x80 - [id number] Implanted:Qty: 2 on 03/13/2011 at [facility] DEVICE Left: FEMUR DISTAL [employer] 02.205.08 0 / NONE / NONE Scr Indira Lk 5.0x85 - [id number] Implanted:Qty: 2 on 03/13/2011 at [facility] DEVICE Left: FEMUR DISTAL [employer] 02.205.08 5 / NONE / NONE Scr Lk Sftp T25 5.0x50 - [id number] Implanted:Qty: 1 on 03/13/2011 at [facility] DEVICE Left: FEMUR DISTAL [employer] 212.219 / NONE / NONE Scr Lk Sftp T25 5.0x60 - [id number] Implanted:Qty: 1 on 03/13/2011 at [facility] DEVICE Left: FEMUR DISTAL [employer] 212.221 / NONE / NONE Scr Indira Conic 7.3x85 - [id number] Implanted:Qty: 1 on 03/13/2011 at [facility] DEVICE Left: FEMUR DISTAL [employer] 02.207.28 5 / NONE / NONE Plt Lcp Cndl Lt 4.5x170 6h - [id number] Implanted:Qty: 1 on 03/13/2011 at [facility] DEVICE Left: FEMUR DISTAL [employer] 222.657 / NONE / NONE Description:6 hole 170mmleng th left 4.5mm lcp condylar plate. Scr Didier Sftp 3.5x60 F-Thrd - [id number] Implanted:Qty: 1 on 03/13/2011 at [facility] DEVICE Left: TIBIA PROXIMAL [employer] 204.860 / NONE / NONE Scr Star Lk Sftp 3.5x32 - [id number] Implanted:Qty: 1 on 03/13/2011 at [facility] DEVICE Left: TIBIA PROXIMAL [employer] 212.112 / NONE / NONE Scr Star Lk Sftp 3.5x55 - [id number] Implanted:Qty: 2 on 03/13/2011 at [facility] DEVICE Left: TIBIA PROXIMAL [employer] 212.123 / NONE / NONE Scr Star Lk Sftp 3.5x60 - [id number] Implanted:Qty: 2 on 03/13/2011 at [facility] DEVICE Left: TIBIA PROXIMAL [employer] 212.124 / NONE / NONE Plt Lcp M/Prox Lt 3.5x94 4h - [id number] Implanted:Qty: 1 on 03/13/2011 at [facility] DEVICE Left: TIBIA PROXIMAL [employer] 239.955 / NONE / NONE Scr Didier Ss Sftp 4.5x36 - [id number] Implanted:Qty: 1 on 03/13/2011 at [facility] DEVICE Right: FEMUR DISTAL [employer] 214.836 / NONE / NONE Scr Didier Ss Sftp 4.5x44 - [id number] Implanted:Qty: 1 on 03/13/2011 at [facility]ICE Right: FEMUR DISTAL [employer] 214.844 / NONE / NONE Scr Indira Lk 5.0x75 - [id number] Implanted:Qty: 1 on 03/13/2011 at [facility] Right: FEMUR DISTAL [employer] 02.205.07 5 / NONE / NONE Scr Indira Lk 5.0x85 - [id number] Implanted:Qty: 2 on 03/13/2011 at [facility] Right: FEMUR DISTAL [employer] 02.205.08 5 / NONE / NONE Scr Lk Sftp T25 5.0x44 - [id number] Implanted:Qty: 1 on 03/13/2011 at [facility] DEVICE Right: FEMUR DISTAL [employer] 212.216 / NONE / NONE Scr Lk Sftp T25 5.0x65 - [id number] Implanted:Qty: 1 on 03/13/2011 at [facility] Right: FEMUR DISTAL [employer] 212.222 / NONE / NONE Plt Lp T Ti Str 4h - [id number] Implanted:Qty: 3 on 07/28/2014 by Cooper Shelley MD at [facility] DEVICE Right: SKULL [employer] 421.504 / / Scr Matrix Sfdr 4mm - [id number] Implanted:Qty: 6 on 07/28/2014 by Cooper Shelley MD at [facility] DEVICE Right: SKULL [employer] 04.503.10 4.01 / / Lead Linear 3-4 8 Contact 50cm - [id number] Implanted:Qty: 1 on 03/08/2016 by Zelalem Cohen DO at [facility] DEVICE N/A: OTHER-SEE DESCRIPTION [place] [facility] 09/10/2017 [id number] 2500 / / [id number] Description:LUMBAR Lead Linear 3-4 8 Contact 50cm - [id number] Implanted:Qty: 1 on 03/08/2016 by Zelalem Cohen DO at [facility] DEVICE N/A: OTHER-SEE DESCRIPTION [place] [facility] 09/10/2017 [id number] 2500 / / [id number] Description:LUMBAR Lead Linear 3-4 8 Contact 50cm - [id number] Implanted:Qty: 1 on 03/08/2016 by Zelalem Cohen DO at [facility] DEVICE N/A: OTHER-SEE DESCRIPTION [place] [facility] 09/10/2017 [id number] 2500 / / [id number] Description:LUMBAR Lead Linear 3-4 8 Contact 50cm - [id number] Implanted:Qty: 1 on 03/08/2016 by Zelalem Cohen DO at [facility] DEVICE N/A: OTHER-SEE DESCRIPTION [place] [facility] 09/10/2017 [id number] 2500 / / [id number] Description:LUMBAR Lead Linear 3-4 8 Contact 50cm - [id number] Implanted:Qty: 1 on 05/24/2016 by Zelalem Cohen DO at [facility] DEVICE N/A: SPINE LUMBAR POSTERIOR [place] [facility] 01/31/2018 [id number] 2500 / [id number] / Lead Linear 3-4 8 Contact 50cm - [id number] Implanted:Qty: 1 on 05/24/2016 by Zelalem Cohen DO at [facility] DEVICE N/A: SPINE LUMBAR POSTERIOR [place] [facility] 04/26/2018 [id number] 2500 / [id number] / Lead Linear 3-4 8 Contact 50cm - [id number] Implanted:Qty: 1 on 05/24/2016 by Zelalem Cohen DO at [facility] DEVICE N/A: SPINE LUMBAR POSTERIOR [place] [facility] 04/26/2018 [id number] 2500 / [id number] / Lead Linear 3-4 8 Contact 50cm - [id number] Implanted:Qty: 1 on 05/24/2016 by Zelalem Cohen DO at [facility] DEVICE N/A: SPINE LUMBAR POSTERIOR [place] [facility] 04/26/2018 [id number] 2500 / [id number] / Generator Pulse Spectra - [id number] Implanted:Qty: 1 on 05/24/2016 by Zelalem Cohen DO at [facility] DEVICE N/A: SPINE LUMBAR POSTERIOR [place] [facility] 05/08/2018 [id number] / [id number] / [id number] [place] [employer] - [id number] Implanted:Qty: 1 on 05/24/2016 by Zelalem Cohen DO at [facility] DEVICE N/A: SPINE LUMBAR POSTERIOR [place] [facility] 05/02/2018 [id number] 60 / / [id number] [place] [employer] - [id number] Implanted:Qty: 1 on 05/24/2016 by Zelalem Cohen DO at [facility] DEVICE N/A: SPINE LUMBAR POSTERIOR [place] [facility] 02/28/2018 [id number] 60 / / [id number] Procedures Procedure Name Priority Date/Time Associated Diagnosis Comments CREATININE/GFR, WB POC Routine 01/06/2016 12:04 PM RANGE OPERATOR Back pain, 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 HGB A1C Routine 07/29/2014 3:19 AM CDT from Last 3 Months or Most Recently Relevant to Health Maintenance Results * CREATININE/GFR, WB POC (01/06/2016 12:04 PM RANGE OPERATOR) Creat Whole Blood 0.9 0.66 - 1.25 mg/dl [facility] GFR, Estimated >60 >60 ml/min/1.7 3m2 [facility] GFR, Est., If Black >60 >60 ml/min/1.7 3m2 [facility] 01/06/2016 12:0 4 PM RANGE OPERATOR 01/06/2016 12:21 PM RANGE OPERATOR Trae Blair MD LAB[facility] [phone] * (ABNORMAL) HGB A1C (07/29/2014 3:19 AM CDT) Hgb A1c 6.4(H) 4.3 - 6.1 % [facility] Comment: The usual A1C goal for people with diabetes, age 18-75, is <8.0%. Physicians may recommend a higher or lower goal for specific individuals. 07/29/2014 3:19 AM CDT 07/29/2014 3:22 AM CDT Critical access hospital - 07/29/2014 12:53 PM CDT Performed at [facility], [address] ??[address] [place] Wei PA-C LAB_[address] [address] from Last 3 Months or Most Recently [...] 5:44 PM 07/28/2014 6:50 PM Care Teams Plant Puller Relationship Specialty Start Date End Date Franklin Squires MD 100 [facility] [place] [address] PCP - General Family Practice 03/08/16
--- OUTSIDE RECORDS SUMMARY | 2024-03-09 12:42 | XMS_ITS | Encounter Summary ---
Author Name Unknown Organization [facility] Address [address], [place] [address] Care Team Providers Care Ancient Art Curator Name Role Phone Franklin Squires MD Primary [...] on filedocumented in this encounter Care Teams Ancient Art Curator Relationship Specialty Start Date End Date Franklin Squires MD 100 [facility] [place] [address] PCP - General Family Practice 03/08/16 documented as of this encounter
--- OUTSIDE RECORDS SUMMARY | 2024-03-09 12:42 | XMS_ITS | Clinical Summary ---
Author Name Unknown Organization [facility] Address [place], [place] [address] Care Team Providers Care Rn Psychiatric Name Role Phone Zelalem Cohen MD Unavailable [phone] May Randle MD Unavailable [phone] Franklin Squires MD Primary Care Provider Fred Craft Unavailable [phone] Diane Charles MD Unavailable [phone] Julia Ware RN Unavailable Allergies Active [...] bedIndications:Non-heal ing surgical wound, subsequent encounter Drive Helpa 8 inch low loss mattress and 1/2 rails. Semi-electric bed. Length of need 6 weeks. 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 Item #[id number]. 1 Each 11 021 Active furosemide (LASIX) [...] A DAY 180 Tablet 1 024 Active warfarin (COUMADIN) 7.5 mg tabletIndications:Iliof [...] BY MOUTH AT BEDTIME 120 Tablet 2 Active oxyCODONE 10 mg tabletIndications:Chron ic pain syndrome TAKE 1 TABLET BY MOUTH EVERY 6 HOURS 120 Tablet Active potassium chloride (KLOR-CON) 20 mEq extended-release [...] evening OR as directed 024 2023 Discontinued oxyCODONE 10 mg tabletIndications:Chron ic pain syndrome Take 1 Tablet (10 mg) by mouth every 6 hours. 120 Tablet 024 2023 Discontinued warfarin (COUMADIN) 5 mg [...] 024 2023 Discontinued(R eorder (E-cancel not sent)) LORazepam (ATIVAN) 0.5 mg tabIndications:Parapleg ia (HC) Take 1 Tablet (0.5 mg) by mouth every 6 hours if needed for Anxiety. 120 Tablet 2 024 2023 Discontinued Active Problems Problem Noted [...] Date Resolved Date Soft tissue infection 10/22/20232023 [facility] current use of anticoagulant 06/20/2023 01/08/2024 Cellulitis of scrotum 05/08/20232022 UTI (urinary tract infection) 05/08/2023 06/20/2023 Quadriplegia, unspecified 10/23/2022 Continuous opioid dependence 07/01/2022 08/20/2022 Urinary tract infection asso ciated with indwelling urethral catheter 10/05/2021 06/20/2023 Hypertensive urgency 10/04/2021 023 Type 2 diabetes mellitus, [facility] current use of insulin 01/06/2021 02/14/2024 [...] delivery 04/16/2007 10/01/2007 Overview: 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 Anticoagulation (Acelis) 03/02/[address] [phone] Gabrielle Prado PA Refill Request (Oxycodone) 03/02/[address] [phone] Franklin Squires MD Refill Request (Lorazepam) 02/24/2024 Patient Outreach [facility] Care Management - Advanced Care Team [address] [place], [place] [id number] Archana Wright RN Complex Care Management (ACO outreach engagement ) 02/24/[address] [phone] Franklin Squires MD Form (Physician Orders. Medication order: Lorazapam 0.5 mg; oral tablet. Amoxicillin- clavulanate 875mg) 02/24/[address] [phone] Franklin Squires MD Refill Request (LORazepam (ATIVAN) 0.5 mg tab) 02/20/2024 1:30 PM CDT Office Visit [address] [phone] Franklin Squires MD Hospital F/U (02/15/24) 02/20/2024 Anticoagulation (warfarin) [address] [phone] 1, [facility] Anticoagulation 02/20/2024 Travel 02/18/2024 Anticoagulation (warfarin) [address] [phone] 1, [facility] Anticoagulation (acelis) 02/18/2024 Patient Outreach [address] [phone] Archana Stein RN Primary RN Care Management (Hospital DC:02/17/24/LACE:47/[facility]); Hospital F/U 02/17/[address] [phone] Franklin Squires MD Form (Service Order: Hold. Acute care hospitalization for pneumonia. Hold [facility] pending discharge plans. Effective: 02/15/2024) 02/15/2024 4:34 PM CDT - 02/17/2024 2:45 PM CDT Hospital Encounter [facility] [address] [place] [address] [facility] Internal Foge, Nat[facility]ober[facility] hospitalMD Oziel Monique Alireza, MD Pneumonia due to infectious organism, unspecified laterality, unspecified part of lung (Primary Dx); History of DVT (deep vein thrombosis); Pressure injury of right buttock, stage 1 Discharge Disposition: Home Self Care 02/15/2024 Travel 02/15/2024 Refill [facility] [address] [place] [address] 1, [facility] Refill Request (Warfarin) 02/14/2024 3:10 PM CDT - 02/15/2024 2:45 PM CDT Hospital Encounter [facility] [address] [place] [address] Quan Corbett, ROXY Ramírez, MD Terence Bruno, Todd Glass, DO Cintron, George Izaguirre, CLEMENT Cruz, Malini Ferro NP Leukocytosis, unspecified type (Primary Dx); Fever, unspecified fever cause; Chills; Tachycardia; Pulmonary infiltrate; Elevated C-reactive protein (CRP); Pressure injury of deep tissue of left buttock Discharge Disposition: Critical Access Hospital 02/14/2024 Travel 02/05/2024 Anticoagulation (warfarin) [address] [phone] 1, 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 Anticoagulation (Acelis) 01/16/[address] [phone] Franklin Squires MD Refill Request (Bupropion) 01/09/[address] [phone] Franklin Squires MD Form (Home Health Certification and Plan of Care.) 01/08/[address] [phone] Franklin Squires MD Form ([facility] 60 Day Summary Report) 01/08/2024 Anticoagulation (warfarin) [address] [phone] 1, [facility] Anticoagulation (acelis) 01/01/2024 Anticoagulation (warfarin) [address] [phone] 1, [facility] Anticoagulation (Acelis) 12/29/[address] [phone] Franklin Squires MD Refill Request (Oxycodone) 12/26/[address] [phone] Franklin Squires MD Form 12/26/[address] [place] [address] Franklin Squires MD Anticoagulation (Question/review) 12/25/2023 Anticoagulation (warfarin) [address] [place] [address] 1, [facility] Anticoagulation (Acelis) 12/19/2023 1:50 PM THROAT CUTTER Office Visit [address] [place] [address] Franklin Squires MD Recheck 12/19/[address] [place] [phone] Franklin Squires MD Refill Request (Dakin's Solution) 12/19/2023 Travel 12/18/2023 Anticoagulation (warfarin) [address] [place] [address] , [facility] Anticoagulation (Acelis) 12/16/[address] [place] [address] Franklin Squires MD Refill Request (Dakins 1/2 strength 0.25 soln) 12/13/[address] [place] [address] Franklin Squires MD Form 12/12/[address] [place] [address] Franklin Squires MD Refill Request (Gabapentin, Donepezil) 12/10/2023 Anticoagulation (warfarin) [address] [place] [address] 1, [facility] Anticoagulation (Acelis) from Last 3 Months Immunizations Name Administration Dates Next Due COVID-19 vaccine (Road Hero NTech 30mcg/0.3mL) 12YO+ BIVALENT PF, MDV 10/22/2022 COVID-19 vaccine (Road Hero NTech 30mcg/0.3mL) PF, MDV 01/25/2021,01/02/2021 Influenza A [...] 02/17/2024 4:00 AM CDT Plan of Treatment Upcoming Encounters Date Type Department Care Team (Late st Contact Info) Description 04/03/2024 2:30 PM CDT Office Visit [facility] [address] [place] [address] Franklin Squires MD [address] [place] [address] Health Maintenance Due Date Last Done Comments [...] Associated Diagnosis Comments HOME MONITOR AC Routine 03/05/2024 12:00 AM CDT POTASSIUM Routine 02/20/2024 2:15 PM CDT Type [...] HOME MONITOR AC Routine 01/08/2024 12:00 AM THROAT CUTTER HOME MONITOR AC Routine 01/01/2024 12:00 AM THROAT CUTTER HOME MONITOR AC Routine 12/25/2023 12:00 AM THROAT CUTTER HOME MONITOR AC Routine 12/18/2023 12:00 AM THROAT CUTTER HOME MONITOR AC Routine 12/10/2023 12:00 AM THROAT CUTTER from Last 3 Months Results * HOME MONITOR AC (03/05/2024 12:00 AM CDT) Only the most recent of9 resultswithin the time period is included. PATIENT REPORTED HOME INR 2.1 2.00 - 3.00 ALERE HOME MONITORING 03/05/2024 Franklin Squires MD OTHER [facility] [address] [place] [address] * POTASSIUM (02/20/2024 2:15 PM CDT) Only the most recent of2 resultswithin the time period is included. POTASSIUM 4.3 3.5 - 5.1 mmol/L 02/20/2024 4:02 PM CDT [facility] Blood BLOOD SPECIMEN / Unknown Venipuncture / Unknown 02/20/2024 2:15 PM CDT 02/20/2024 3:06 PM CDT Franklin Squires MD CHEMISTRY Performing Organization Address City/[facility]/ZIP Co de Phone Number [facility] [address] [place] [address] * (ABNORMAL) PROTIME-INR (02/20/2024 2:15 PM CDT) Only the most recent of5 resultswithin the time period is included. INR 1.9(H) <1.3 02/20/2024 2:38 PM CDT [facility] PROTIME 21.2(H) 10.3 - 12.3 sec 02/20/2024 2:38 PM CDT [facility] Blood BLOOD SPECIMEN / Unknown Venipuncture / Unknown 02/20/2024 2:15 PM CDT 02/20/2024 2:15 PM CDT Narrative [facility] - 02/20/2024 2:38 PM CDT [...] is on UFH. Franklin Squires MD HEMATOLOGY [facility] [address] [facility] [place] [address] * (ABNORMAL) CBC WITH AUTO DIFFERENTIAL (02/17/2024 5:11 AM CDT) Only the most recent of2 resultswithin the time period is included. WHITE BLOOD COUNT 7.0 4.5 - 11.0 thou/cu mm 02/17/2024 5:49 AM [facility] RED BLOOD COUNT 4.22(L) 4.30 - 5.90 mil/cu mm 02/17/2024 5:49 AM [facility] HEMOGLOBIN 10.9(L) 13.5 - 17.5 g/dL 02/17/2024 5:49 AM [facility] HEMATOCRIT 33.8(L) 37.0 - 53.0 % 02/17/2024 5:49 AM [facility] MCV 80 80 - 100 fL 02/17/2024 5:49 AM [facility] MCH 25.8(L) 26.0 - 34.0 pg 02/17/2024 5:49 AM [facility] MCHC 32.2 32.0 - 36.0 g/dL 02/17/2024 5:49 AM [facility] RDW 15.9(H) 11.5 - 15.5 % 02/17/2024 5:49 AM [facility] PLATELET COUNT 239 140 - 440 thou/cu mm 02/17/2024 5:49 AM [facility] MPV 9.6 6.5 - 11.0 fL 02/17/2024 5:49 AM [facility] NRBC 0.0 % 02/17/2024 5:49 AM [facility] ABS NRBC 0.0 thou /cu mm 02/17/2024 5:49 AM [facility] % NEUT 54.3 % 02/17/2024 5:49 AM [facility] % LYMPH 27.2 % 02/17/2024 5:49 AM [facility] % MONO 11.7 % 02/17/2024 5:49 AM [facility] % EOS 5.7 % 02/17/2024 5:49 AM [facility] % BASO 0.7 % 02/17/2024 5:49 AM [facility] % IMMATURE GRAN (METAS,MYELOS,SD OS) 0.4 % 02/17/2024 5:49 AM [facility] ABSOLUTE NEUTROPHILS 3.8 1.7 - 7.0 thou/cu mm 02/17/2024 5:49 AM [facility] ABSOLUTE LYMPHOCYTES 1.9 0.9 - 2.9 thou/cu mm 02/17/2024 5:49 AM [facility] ABSOLUTE MONOCYTES 0.8 <0.9 thou/cu mm 02/17/2024 5:49 AM [facility] ABSOLUTE EOSINOPHILS 0.4 <0.5 thou/cu mm 02/17/2024 5:49 AM [facility] ABSOLUTE BASOPHILS 0.1 <0.3 thou/cu mm 02/17/2024 5:49 AM [facility] ABSOLUTE IMMATURE GRANULOCYTES(MET ,MYELOS,PROS) 0.0 <0.3 thou/cu mm 02/17/2024 5:49 AM [facility] Blood BLOOD SPECIMEN / Unknown Butterfly / Unknown 02/17/2024 5:11 AM CDT 02/17/2024 5:45 AM CDT John Ludwig MD HEMATOLOGY [facility] INTERNAL ZIP [address] [address] [place] [address] * SODIUM (02/17/2024 5:11 AM CDT) SODIUM 140 136 - 145 mmol/L 02/17/2024 6:14 AM [facility] Blood BLOOD SPECIMEN / Unknown Butterfly / Unknown 02/17/2024 5:11 AM CDT 02/17/2024 5:44 AM CDT John Ludwig MD CHEMISTRY [facility] [place] ZIP [phone] [place] [address] * (ABNORMAL) CREATININE (02/17/2024 5:11 AM CDT) eGFR >90 >90 mL/min/1.7 3m2 02/17/2024 6:14 AM CDT [facility] Comment:As of 2022, eG FR is calculated by the CKD-EPI creatinine equation without race adjustment. ??eGFR can be influenced by muscle mass, exercise, and diet. ??The reported eGFR is an estimation only and is only applicable if the renal function is stable. CREATININE 0.56(L) 0.70 - 1.20 mg/dL 02/17/2024 6:14 AM CDT [facility] Blood BLOOD SPECIMEN / Unknown Butterfly / Unknown 02/17/2024 5:11 AM CDT 02/17/2024 5:44 AM CDT John Ludwig MD CHEMISTRY Performing Organization Address [facility] Co de Phone Number [facility] INTERNAL ZIP [address] [address] [place] [address] * MAGNESIUM (02/17/2024 5:11 AM CDT) MAGNESIUM 2.0 1.6 - 2.4 mg/dL 02/17/2024 7:44 AM CDT [facility] Blood BLOOD SPECIMEN / Unknown Butterfly / Unknown 02/17/2024 5:11 AM CDT 02/17/2024 5:44 AM CDT John Ludwig MD CHEMISTRY [facility] INTERNAL ZIP [address] [address] [place] [address] * (ABNORMAL) GLUCOSE METER (02/16/2024 11:41 AM CDT) Only the most recent of6 resultswithin the time period is included. GLUCOSE METER 129(H) 65 - 100 mg/dL 02/16/2024 12:02 PM CDT [facility] Blood BLOOD SPECIMEN / Unknown 02/16/2024 11:41 AM CDT 02/16/2024 12:02 PM CDT John Ludwig MD CHEMISTRY [facility] INTERNAL ZIP [address] [address] [place] [address] * LEGIONELLA AND PNEUMOCOCCAL URINE ANTIGEN (02/15/2024 10:25 AM CDT) STREP PNEUMO ANTIGEN Negative 02/15/2024 3:46 PM CDT [facility] Comment:Presumptive negative for pneumococcal pneumonia, suggesting no current or recent pneumococcal infection. Infection due to S. pneumoniae cannot be ruled out since the antigen present in the sample may be below the detection limit of the test. LEGIONELLA ANTIGEN Negative 02/15/2024 3:46 PM CDT [facility] Comment:Negative for L.pneum ophila serogroup [...] 10:30 AM CDT James Ramírez MD [facility]OLOG[facility] [address] [place] [address], [place] * (ABNORMAL) WHITE BLOOD COUNT (02/15/2024 5:54 AM CDT) WHITE BLOOD COUNT 11.7(H) 4.5 - 11.0 thou/cu mm 02/15/2024 7:16 AM CDT [facility] Blood BLOOD SPECIMEN / Unknown Venipuncture / Unknown 02/15/2024 5:54 AM CDT 02/15/2024 7:09 AM CDT James Ramírez MD HEMATOLOGY [facility] [address] [place] [address] * CT ABDOMEN PELVIS WO (02/14/2024 8:12 [...] 6-15 ng/L ng/L 02/14/2024 8:12 PM CDT [facility] Blood BLOOD SPECIMEN / Unknown Venipuncture / Unknown 02/14/2024 7:49 PM CDT 02/14/2024 7:53 PM CDT Quan RAMSEY CHEMISTRY [facility] [address] [place] [address] * (ABNORMAL) TROPONIN T (HS) ACUTE W/2HR REFLEX (02/14/2024 5:35 PM CDT) TROPONIN T HS 33(H) 6-15 ng/L ng/L 02/14/2024 6:42 PM CDT [facility] Blood BLOOD SPECIMEN / Unknown Venipuncture / Unknown 02/14/2024 5:35 PM CDT 02/14/2024 5:38 PM CDT Narrative [facility] - 02/14/2024 6:42 PM CDT [...] emergency department patient population. Quan RAMSEY CHEMISTRY [facility] [address] [place] [address] * (ABNORMAL) URINALYSIS MICROSCOPIC (02/14/2024 5:07 PM CDT) RBC None Seen 0-2, None Seen /HPF 02/14/2024 6:44 PM CDT [facility] WBC 0-2 0-2, 3-5, None Seen /HPF 02/14/2024 6:44 PM CDT [facility] BACTERIA Moderate(A ) None Seen, Rare, Few Bacteria/ HPF 02/14/2024 6:44 PM CDT [facility] EPITHELIAL CELLS Few None Seen, Few Epi/HPF 02/14/2024 6:44 PM CDT [facility] Urine URINE SPECIMEN / Unknown Non-Blood / Unknown 02/14/2024 5:07 PM CDT 02/14/2024 5:28 PM CDT Quan RAMSEY URINE [facility] [address] [place] [address] * Urine culture - clean catch ADD ON (02/14/2024 5:07 PM CDT) CULTURE No growth (<1,000 CFU/mL) 02/16/2024 12:54 PM CDT [facility] Urine URINE SPECIMEN / Unknown Non-Blood / Unknown 02/14/2024 5:07 PM CDT 02/14/2024 5:28 PM CDT James Ramírez MD MICROBIOLOGY [facility] [address] [place] [address], * (ABNORMAL) UA W/ SEDIMENT EXAM REFLEXED PER CRITERIA (02/14/2024 5:07 PM CDT) COLOR Yellow Yellow Color 02/14/2024 5:44 PM CDT [facility] CLARITY Clear Clear Clarity 02/14/2024 5:44 PM CDT [facility] SPECIFIC GRAVITY,URINE <=1.005(A) 1.010, 1.015, 1.020, 1.025 02/14/2024 5:44 PM T [facility] PH,URINE 6.0 6.0, 7.0, 8.0, 5.5, 6.5, 7.5, 8.5 02/14/2024 5:44 PM CDT [facility] UROBILINOGEN, QUALITATIVE Normal Normal EU/dl 02/14/2024 5:44 PM T [facility] PROTEIN, URINE Negative Negative mg/dL 02/14/2024 5:44 PM T [facility] GLUCOSE, URINE Negative Negative mg/dL 02/14/2024 5:44 PM [facility] KETONES,URINE Negative Negative mg/dL 02/14/2024 5:44 PM T [facility] BILIRUBIN,URI NE Negative Negative 02/14/2024 5:44 PM CDT [facility] OCCULT BLOOD,URINE Negative Negative 02/14/2024 5:44 PM CDT [facility] NITRITE Positive(A) Negative 02/14/2024 5:44 PM CDT [facility] LEUKOCYTE ESTERASE Negative Negative 02/14/2024 5:44 PM CDT [facility] Urine URINE SPECIMEN / Unknown Non-Blood / Unknown 02/14/2024 5:07 PM CDT 02/14/2024 5:28 PM CDT Quan RAMSEY URINE [facility] [address] [place] [address] * XR CHEST 1 VIEW PORTABLE (02/14/2024 [...] of2 resultswithin the time period is included. [facility] CULTURE No Growth. 02/20/2024 5:27 AM CDT [facility] Blood BLOOD SPECIMEN / Unknown Butterfly / Unknown 02/14/2024 3:58 PM CDT 02/14/2024 4:02 PM CDT Quan RAMSEY MICROBIOLOG Y [facility] [address] [place] [address] * LACTATE VENOUS (02/14/2024 3:50 PM CDT) [facility] LACTATE,VENOUS 1.4 0.5 - 2.0 mmol/L 02/14/2024 4:22 PM CDT [facility] Blood BLOOD SPECIMEN / Unknown Butterfly / Unknown 02/14/2024 3:50 PM CDT 02/14/2024 4:02 PM CDT Quan RAMSEY CHEMISTRY [facility] [address] [place] [address] * PROCALCITONIN (02/14/2024 3:50 PM CDT) [facility] PROCALCITONIN 0.10 ng/ml 02/14/2024 5:09 PM CDT [facility] Blood BLOOD SPECIMEN / Unknown Butterfly / Unknown 02/14/2024 3:50 PM CDT 02/14/2024 4:39 PM CDT [facility] - 02/14/2024 5:09 PM CDT [...] Quan RAMSEY SEND OUTS Performing Organization Address [facility]/ZIP Co de Phone Number [facility] [address] [place] [address] * (ABNORMAL) C-REACTIVE PROTEIN (02/14/2024 3:50 PM CDT) Pathologist [facility] C-REACTIVE PROTEIN 10.9(H) <0.5 mg/dL 02/14/2024 5:09 PM T [facility] Blood BLOOD SPECIMEN / Unknown Butterfly / Unknown 02/14/2024 3:50 PM CDT 02/14/2024 4:02 PM CDT Quan RAMSEY CHEMISTRY Performing Organization Address [facility] Co de Phone Number [facility] [address] [place] [address] * (ABNORMAL) COMP METABOLIC PANEL (02/14/2024 3:50 PM CDT) Pathologist [facility] SODIUM 134(L) 136 - 145 mmol/L 02/14/2024 4:24 PM [facility] POTASSIUM 4.3 3.5 - 5.1 mmol/L 02/14/2024 4:24 PM [facility] CHLORIDE 96(L) 98 - 107 mmol/L 02/14/2024 4:24 PM [facility] CO2,TOTAL 25 22 - 29 mmol/L 02/14/2024 4:24 PM [facility] ANION GAP 13 5 - 18 02/14/2024 4:24 PM [facility] GLUCOSE 118(H) 70 - 99 mg/dL 02/14/2024 4:24 PM [facility] CALCIUM 9.4 8.8 - 10.2 mg/dL 02/14/2024 4:24 PM [facility] BUN 15 8 - 23 mg/dL 02/14/2024 4:24 PM CDT [facility] CREATININE 0.60(L) 0.70 - 1.20 mg/dL 02/14/2024 4:24 PM [facility] BUN/CREAT RATIO 25(H) 10 - 20 4:24 PM [facility] eGFR >90 >90 mL/min/1.7 3m2 02/14/2024 4:24 PM [facility] Comment:As of 2022, eG FR is calculated by the CKD-EPI creatinine equation without race adjustment. ??eGFR can be influenced by muscle mass, exercise, and diet. ??The reported eGFR is an estimation only and is only applicable if the renal function is stable. ALBUMIN 4.1 4.0 - 4.9 g/dL 02/14/2024 4:24 PM [facility] PROTEIN,TOTAL 7.8 6.0 - 8.0 g/dL 02/14/2024 4:24 PM [facility] BILIRUBIN,TOTAL 0.6 0.0 - 1.2 mg/dL 02/14/2024 4:24 PM [facility] ALK PHOSPHATASE 117 40 - 129 IU/L 02/14/2024 4:24 PM [facility] ALT (SGPT) 47 10 - 50 IU/L 02/14/2024 4:24 PM [facility] AST (SGOT) 42 10 - 50 IU/L 02/14/2024 4:24 PM [facility] Blood BLOOD SPECIMEN / Unknown Butterfly / Unknown 02/14/2024 3:50 PM CDT 02/14/2024 4:02 PM T Quan RAMSEY CHEMISTRY [facility] [address] [place] [address] from Last 3 Months Additional Health Concerns [...] Documents on File Type Date Recorded Patient Health And Safety Specialist Expl anation Healthcare Directive 05/09/2023 023 Healthcare [...] Code Status Discussion: Reviewed Preferences Care Teams Rn Psychiatric Relationship Specialty Start Date End Date Franklin Squires MD [address] [id number] PCP - General Family Practice 10/18/15 Zelalem Cohen MD Physical Therapist 03/13/12 May Randle MD Physical Medicine and Rehabilitation 03/13/12 [place], FAUSTINO Krueger [address] [place] [address] Antenna Machine Operator 05/03/17 Diane Charles MD 100 [place] [address] Surgery - Urology 01/17/23 Julia Ware, RN [address] [place] [address] Registered Nurse 07/17/23
--- OUTSIDE RECORDS SUMMARY | 2024-03-09 12:42 | XMS_ITS | Encounter Summary ---
Author Name Unknown Organization [facility] Address [address], [place] [address] Care Team Providers Care Machine Operator Farmworker Name Role Phone Franklin Squires MD Primary Care Provider [phone] Encounter Details Date Type Department Care Team (Late st Contact Info) Description 08/22/2014 Outside Hospital External to [facility] HOSP-D/C SUMMARY Social History Tobacco Use [...] filedocumented in this encounter Care Teams Machine Operator Farmworker Relationship Specialty Start Date End Date Franklin Squires MD 100 [facility] [place] [address] PCP - General Family Practice 03/08/16 documented as of this encounter
--- OUTSIDE RECORDS SUMMARY | 2024-03-09 12:42 | XMS_ITS | Encounter Summary ---
Author Name Unknown Organization [facility] Address [address], [place] [address] Care Team Providers Care Scrape Gatherer Name Role Phone Franklin Squires MD Primary Care Provider Encounter Details Date Type Department Care Team (Late st Contact Info) Description 12/16/[address] [facility] Radiology [address] [place] [address] Radiology, Provider MRI SAFETY SHEET AND COMPATIBILITY [...] Radiology, Provider - 12/16/2013 12:00 AM CST AND ALCOHOL COUNSELLOR documented in this encounter Plan of Treatment Not on file documented as of this encounter Visit Diagnoses Not on filedocumented in this encounter Care Teams Scrape Gatherer Relationship Specialty Start Date End Date Franklin Squires MD 100 [facility] [place] [address] PCP - General Family Practice 03/08/16 documented as of this encounter
--- OUTSIDE RECORDS SUMMARY | 2024-03-09 12:42 | XMS_ITS | Encounter Summary ---
Author Name Unknown Organization [facility] Address [address] [place] [address] Care Team Providers Care Bus Van Driver Name Role Phone Franklin Squires MD Primary Care Provider Encounter Details Date Type Department Care Team (Late st Contact Info) Description 09/07/2014 Correspondence [facility] Radiology [address] [place] [address] Radiology, Provider MRI SAFETY SHEET AND COMPATIBILITY [...] on filedocumented in this encounter Care Teams Bus Van Driver Relationship Specialty Start Date End Date Franklin Squires MD [address] [place] [address] [place] [address] PCP - General Family Practice 03/08/16 documented as of this encounter
--- OUTSIDE RECORDS SUMMARY | 2024-03-09 12:42 | XMS_ITS | Encounter Summary ---
Author Name Unknown Organization [facility] Address [address], [place] [address] Care Team Providers Care Barrel Centerer Name Role Phone Franklin Squires MD Primary Care Provider [phone] Encounter Details Date Type Department Care Team (Late st Contact Info) Description 11/10/2014 Correspondence [facility] Physical Therapy [address] [place] [address] Trudi Raymundo, PT [address] [place] [address] LETTER OF MEDICAL NECESSITY Social History Tobacco [...] on filedocumented in this encounter Care Teams Barrel Centerer Relationship Specialty Start Date End Date Franklin Squires MD 100 [facility] [place] [address] PCP - General Family Practice 03/08/16 documented as of this encounter
--- OUTSIDE RECORDS SUMMARY | 2024-03-09 12:42 | XMS_ITS | Encounter Summary ---
Author Name Unknown Organization [facility] Address [address], [place] [address] Care Team Providers Care Spaghetti Machine Operator Name Role Phone Franklin Squires MD Primary Care Provider Encounter Details Date Type Department Care Team (Late st Contact Info) Description 08/20/2014 Outside Hospital External to [facility] HOSP-ADMIT H/P Social History Tobacco Use [...] on filedocumented in this encounter Care Teams Spaghetti Machine Operator Relationship Specialty Start Date End Date Franklin Squires MD 100 [facility] [place] [address] PCP - General Family Practice 03/08/16 documented as of this encounter
--- OUTSIDE RECORDS SUMMARY | 2024-03-09 12:42 | XMS_ITS | Encounter Summary ---
Author Name Unknown Organization [facility] Address [address], [place] [address] Care Team Providers Care Machine Wiper Name Role Phone Franklin Squires MD Primary Care Provider Encounter Details Date Type Department Care Team (Late st Contact Info) Description 07/28/2014 Outside Hospital External to External, Provider No address [address] ER VISIT/TRANSFER Social History Tobacco Use [...] filedocumented in this encounter Care Teams Machine Wiper Relationship Specialty Start Date End Date Franklin Squires MD 100 [place] [place] [address] PCP - General Family Practice 03/08/16 documented as of this encounter
--- OUTSIDE RECORDS SUMMARY | 2024-03-09 12:42 | XMS_ITS | Encounter Summary ---
Author Name Unknown Organization [facility] Address [address] [address] Care Team Providers Care Learning And Development Consultant Name Role Phone Franklin Squires MD Primary Care Provider Encounter Details Date Type Department Care Team ([facility] st Contact Info) Description 07/08/2015 Correspondence [facility] Physical Therapy [address] [place] [address] Trudi Raymundo, PT [address] [place] [address] ADDENDUM FOR LETTER OF MEDICAL NECESSITY Social [...] on filedocumented in this encounter Care Teams Learning And Development Consultant Relationship Specialty Start Date End Date Franklin Squires MD 100 [facility] [address] PCP - General Family Practice 03/08/16 documented as of this encounter
--- OUTSIDE RECORDS SUMMARY | 2024-03-09 12:42 | XMS_ITS | Encounter Summary ---
Author Name Unknown Organization [facility] Address [address], [place] [address] Care Team Providers Care Inventory Control Associate Name Role Phone Franklin Squires MD Primary Care Provider Encounter Details Date Type Department Care Team (Late st Contact Info) Description 06/11/2014 Correspondence [facility] Physical Medicine 401 [facility] [place] [address] May Randle MD [address] [place] [address] [facility] Social History Tobacco Use Types Packs/Day Years [...] on filedocumented in this encounter Care Teams Inventory Control Associate Relationship Specialty Start Date End Date Franklin Squires MD 100 [facility] [address] PCP - General Family Practice 03/08/16 documented as of this encounter
--- OUTSIDE RECORDS SUMMARY | 2024-03-09 12:42 | XMS_ITS | Encounter Summary ---
Author Name Unknown Organization [facility] Address [address], [place] [address] Care Team Providers Care Sharepoint Application Architect Name Role Phone Franklin Squires MD Primary Care Provider [phone] Encounter Details Date Type Department Care Team (Late st Contact Info) Description 02/05/2014 Correspondence [facility] Physical Therapy [address] [place] [address] Trudi Raymundo, PT [address] [place] [address] LETTER OF MEDICAL NECESSITY FOR A WHEELCHAIR [...] on filedocumented in this encounter Care Teams Sharepoint Application Architect Relationship Specialty Start Date End Date Franklin Squires MD 100 [facility] [address] PCP - General Family Practice 03/08/16 documented as of this encounter
--- OUTSIDE RECORDS SUMMARY | 2024-03-09 12:42 | XMS_ITS ---
Author Name Unknown Organization [facility] Address [address] [address] Care Team Providers Care Flue Lining Dipper Name Role Phone Franklin Squires MD Primary [...] for this patient in [facility]. Treatments may have been administered in another system. Resolved Problems Problem Noted Date Diagnosed Date Resolved Date Gait abnormality 01/17/2012 02/09/2015 Back pain 01/17/2012 02/09/2015 Paraplegia 04/04/2011 02/09/2015 Osteoporosis 03/06/2011 02/09/2015 Urinary tract infection 12/24/200603/11
--- OUTSIDE RECORDS SUMMARY | 2024-03-09 12:42 | XMS_ITS | Encounter Summary ---
Author Name Unknown Organization [facility] Address [address], [place] [address] Care Team Providers Care Accessibility Lift Technician Name Role Phone Franklin Squires MD [...] on filedocumented in this encounter Care Teams Accessibility Lift Technician Relationship Specialty Start Date End Date Franklin Squires MD 100 [facility] [place] [address] PCP - General Family Practice 03/08/16 documented as of this encounter
--- OUTSIDE RECORDS SUMMARY | 2024-03-09 12:43 | XMS_ITS | Encounter Summary ---
Author Name Unknown Organization [facility] Address [address] [address] Care Team Providers Care Health Care Manager Name Role Phone Franklin Squires MD Primary Care Provider Encounter Details Date Type Department Care Team ([facility] st Contact Info) Description 10/26/2013 Correspondence [facility] Physical Therapy [address] [place] [address] Trudi Raymundo, PT [address] [place] [address] LETTER OF MEDICAL NECESSITY Social History Tobacco [...] Raymundo, PT - 10/26/2013 12:00 AM CST H MECHANIC documented in this encounter Plan of Treatment Not on file documented as of this encounter Visit Diagnoses Not on filedocumented in this encounter Care Teams Health Care Manager Relationship Specialty Start Date End Date Franklin Squires MD 100 [facility] [place] [address] PCP - General Family Practice 03/08/16 documented as of this encounter
--- OUTSIDE RECORDS SUMMARY | 2024-03-09 12:43 | XMS_ITS | Encounter Summary ---
Author Name Unknown Organization [facility] Address [address] [place] [address] Care Team Providers Care Contract Clerk Name Role Phone Franklin Squires MD Primary Care Provider [phone] Encounter Details Date Type Department Care Team (Late st Contact Info) Description 01/08/2013 Scanned History External to Transferred Record, Provider [facility] Social History Tobacco Use Types [...] filedocumented in this encounter Care Teams Contract Clerk Relationship Specialty Start Date End Date Franklin Squires MD 100 [facility] [place] [address] PCP - General Family Practice 03/08/16 documented as of this encounter
--- OUTSIDE RECORDS SUMMARY | 2024-03-09 12:43 | XMS_ITS | Encounter Summary ---
Author Name Unknown Organization [facility] Address [address] [address] Care Team Providers Care Lubrication Worker Name Role Phone Franklin Squires MD Primary Care Provider [phone] Encounter Details Date Type Department Care Team (Late st Contact Info) Description 04/20/[address] [address] Radiology, Provider MRI SAFETY SHEET AND COMPATIBILITY [...] on filedocumented in this encounter Care Teams Lubrication Worker Relationship Specialty Start Date End Date Franklin Squires MD 100 [facility] [place] [address] PCP - General Family Practice 03/08/16 documented as of this encounter
--- OUTSIDE RECORDS SUMMARY | 2024-03-09 12:43 | XMS_ITS | Encounter Summary ---
Author Name Unknown Organization [facility] Address [address] [address] Care Team Providers Care Mobile Application Development Lead Name Role Phone Franklin Squires MD Primary Care Provider Encounter Details Date Type Department Care Team (Late st Contact Info) Description 11/13/2012 Correspondence [facility] Radiology [address] [place] [address] Radiology, Provider MRI SAFETY SHEET AND COMPATIBILITY [...] RADIOLOGY, PROVIDER - 11/13/2012 12:00 AM CST DENTIAL PROGRAM COORDINATOR documented in this encounter Plan of Treatment Not on file documented as of this encounter Visit Diagnoses Not on filedocumented in this encounter Care Teams Mobile Application Development Lead Relationship Specialty Start Date End Date Franklin Squires MD 100 [facility] [place] [address] PCP - General Family Practice 03/08/16 documented as of this encounter
--- OUTSIDE RECORDS SUMMARY | 2024-03-09 12:43 | XMS_ITS | Encounter Summary ---
Author Name Unknown Organization [facility] Address [address], [place] [address] Care Team Providers Care Drug Safety Scientist Name Role Phone Franklin Squires MD Primary Care Provider Encounter Details Date Type Department Care Team (Late st Contact Info) Description 09/17/2013 Correspondence External to External, [place] [address] EMPOWERMENT RULES Social History Tobacco Use Types [...] External, Provider - 09/17/2013 12:00 AM CST RICT SALES LEADER documented in this encounter Plan of Treatment Not on file documented as of this encounter Visit Diagnoses Not on filedocumented in this encounter Care Teams Drug Safety Scientist Relationship Specialty Start Date End Date Franklin Squires MD 100 [facility] [address] PCP - General Family Practice 03/08/16 documented as of this encounter
--- OUTSIDE RECORDS SUMMARY | 2024-03-09 12:43 | XMS_ITS | Encounter Summary ---
Author Name Unknown Organization [facility] Address [address] [address] Care Team Providers Care Shirt Sorter Name Role Phone Franklin Squires MD Primary Care Provider [phone] Encounter Details Date Type Department Care Team (Late st Contact Info) Description 04/24/2012 Correspondence [facility] Radiology [address] [place] [address] Radiology, Provider MRI SAFETY SHEET AND COMPATIBILITY [...] on filedocumented in this encounter Care Teams Shirt Sorter Relationship Specialty Start Date End Date Franklin Squires MD 100 [facility] [place] [address] PCP - General Family Practice 03/08/16 documented as of this encounter
--- OUTSIDE RECORDS SUMMARY | 2024-03-09 12:43 | XMS_ITS | Encounter Summary ---
Author Name Unknown Organization [facility] Address [address] [place] [address] Care Team Providers Care Business Analyst Consultant Name Role Phone Franklin Squires MD Primary Care Provider [phone] Encounter Details Date Type Department Care Team (Late st Contact Info) Description 07/23/2013 Correspondence [facility] 401 Interventional Pain Management 401 [place] [address] Zelalem Cohen DO [address] [place] [address] [employer] Social History Tobacco Use Types [...] Cohen MD - 07/23/2013 12:00 AM CDT ER BUCKER documented in this encounter Plan of Treatment Not on file documented as of this encounter Visit Diagnoses Not on filedocumented in this encounter Care Teams Business Analyst Consultant Relationship Specialty Start Date End Date Franklin Squires MD 100 [facility] [place] [address] PCP - General Family Practice 03/08/16 documented as of this encounter
--- OUTSIDE RECORDS SUMMARY | 2024-03-09 12:43 | XMS_ITS | Encounter Summary ---
Author Name Unknown Organization [facility] Address [address], [place] [address] Care Team Providers Care Cupola Worker Name Role Phone Franklin Squires MD [...] on filedocumented in this encounter Care Teams Cupola Worker Relationship Specialty Start Date End Date Franklin Squires MD 100 [facility] [place] [address] PCP - General Family Practice 03/08/16 documented as of this encounter
== END 2024-03-09 12:40 | disposition home or self-care (01) ==
LOC: WOUND 12:39
PROVIDERS: PCP Family Medicine; Visit Provider Nurse Practitioner Family
DX: M86.18 Other acute osteomyelitis, other site (principal); L89.324 Pressure ulcer of left buttock, stage 4; E11.622 Type 2 diabetes mellitus with other skin ulcer; G82.50 Quadriplegia, unspecified
CPT/HCPCS: 11042; 97605

== ENCOUNTER 2024-03-16 12:22 | Outpatient (CLI) | payer MEDICARE, OTHER, SELFPAY ==
--- OUTSIDE RECORDS SUMMARY | 2024-03-16 12:24 | XMS_ITS | Continuity of Care Document ---
Author Name [facility] Organization [facility] Care Team Providers Care Candy Catcher Name Role Phone [facility] Unavailable Unavailable Problems Combined list of problems from 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 It does not include entries that were removed or entered in error. Problem Status Onset Date Problem Type Date of Resolution Comments Source Abnormal liver function Active Condition [facility] Anemia ([facility] 961296713) Active Condition [facility] Anxiety ([facility] 88592178) Active Condition [facility] Autonomic dysreflexia Active Condition [facility] Chronic Pain Syndrome ([facility] 959753074) Active Condition [facility] Colostomy present Active Condition [facility] Constipation ([facility] 88303829) Active Condition [facility] Continuous opioid dependence Active Condition [facility] COPD - Chronic Obstructive Pulmonary Disease ([facility] 79560001) Active Condition [facility] Dementia Active Condition [facility] Depression ([facility] 82016365) Active Condition [facility] Diabetes Mellitus Type 2 ([facility]CT 97043677) Active Condition [facility] Ependymoma of spinal cord Active Condition [facility] Hearing Loss ([facility] 37793500) Active Condition [facility] History of Deep Vein Thrombosis ([facility] 615826390) Active Condition [facility] History of pressure injury Active Condition [facility] HTN - Hypertension ([facility] 04141972) Active Condition [facility] Hyperlipidemia ([facility] 55918699) Active Condition [facility] Hyponatremia Active Condition [facility] Long-term current use of anticoagulant Active Condition [facility] Neurogenic Bladder ([facility] 074851649) Active Condition [facility] Neurogenic bowel Active Condition [facility] Osteoporosis ([facility] 72613986) Active Condition [facility] Paraplegia Active Condition [facility] Spasticity Active Condition [facility] Suprapubic urinary catheter in situ Active Condition [facility] Supraventricular tachycardia Active Condition [facility] Tinnitus ([facility] 16739434) Active Condition [facility] Vitamin D Deficiency ([facility] 8294996) Active Condition [facility] Diagnosis: ICD-10-CM Z73.6 Limitation of activities due to disability Active Diagnosis [facility] Diagnosis: ICD-10-CM G82.20 Paraplegia, unspecified Active Diagnosis [facility] Diagnosis: ICD-10-CM Z43.3 Encounter for attention to colostomy Active Diagnosis [facility] Diagnosis: ICD-10-CM Z71.3 Dietary counseling and surveillance Active Diagnosis [facility] Diagnosis: ICD-10-CM F32.A Depression, unspecified Active Diagnosis [facility] Medications Combined list of outpatient medications from Department of Defense and [facility] Affairs facilities.Medications provided include 1) outpatient medications from the last 15 months, and 2) patient-reported medications. Medication Details Route Status Patient Instructions Prescription Expires Prescription Number Last Dispense Date Ordering Provider Order Date Order Qty Source ACETAMINOPH EN 500MG TAB TAKE TWO TABLETS BY MOUTH THREE TIMES A DAY NEEDED ORALLY ACTIVE Jagdish BARRETT N 2022 [facility] AMLODIPINE BESYLATE (AMLODIPINE BESYLATE), 5 MG, TABLET, ORAL, [employer] 1000 ea. BOTTLE Active [id number] 4 2023 90 Pharmac y [facility] Trans[facility] t[facility] Service [facility]ilit y AMLODIPINE BESYLATE (amlodipine besylate), 5 MG, TABLET, ORAL, Front Row, 1000 ea. BOTTLE Active [id number] 4 2023 90 Pharmac y Data Transac tion Service Facilit y AMLODIPINE BESYLATE 2.5MG TAB TAKE TWO TABLETS BY MOUTH EVERY MORNING ORALLY ACTIVE Jagdish BARRETT 2022 [facility] AMOX TR-POTASSIU M CLAVULANATE (AMOXICILLI N/POTASSIUM CLAV), 875-125 MG, TABLET, ORAL, TEV[employer]kun [facility], 20 ea. BOTTLE Active [id number] 3 2022 14 Pharmac y Data Transac tion Service Facilit y AMOXICILLIN -CLAVULANAT E POTASS (amoxicilli n/potassium clavulanate ), 875-125 MG, TABLET, ORAL, [facility] [place],, 20 ea. BOTTLE Active [id number] 2023 56 Pharmac y Data Transac tion Service Facilit y ARIPIPRAZOL E (aripiprazo le), 2 MG, TABLET, ORAL, [employer] [facility], 500 ea. BOTTLE Active [id number] 2023 180 Pharmac y Data Transac tion Service Facilit y ARIPIPRAZOL E (aripiprazo le), 2 MG, TABLET, ORAL, [employer], 500 ea. BOTTLE Active [id number] 2023 180 Pharmac y Data Transac tion Service Facilit y ARIPIPRAZOL E TAB TAKE 2MG BY MOUTH TWICE A DAY ORALLY ACTIVE Jey HANSON 2021 [facility] ATIVAN (LORAZEPAM) , 0.5 MG, TABLET, ORAL, [employer], 100 ea. BOTTLE Cancele d [id number] : 2023 0 Pharmac y Data Transac tion Service Facilit y ATORVASTATI N CA 80MG TAB TAKE ONE-HALF TABLET BY MOUTH EVERY DAY ORALLY ACTIVE Jey HANSON 2021 [facility] ATORVASTATI N CALCIUM (atorvastat in calcium), 40 MG, TABLET, ORAL, [employer] [facility] I, 1000 ea. BOTTLE Active [id number] 2023 90 Pharmac y Data Transac tion Service Facilit y BACLOFEN (baclofen), 20 MG, TABLET, ORAL, [facility] 1000 ea. BOTTLE Active [id number] 2023 540 Pharmac y Data Transac tion Service Facilit y BACLOFEN (baclofen), 20 MG, TABLET, ORAL, [facility] 1000 ea. BOTTLE Active [id number] 2023 540 Pharmac y Data Transac tion Service Facilit y BACLOFEN 20MG TAB TAKE TWO TABLETS BY MOUTH THREE TIMES A DAY ORALLY ACTIVE Jagdish BARRETT 2022 [place] [facility] BUPROPION HCL 150MG 12HR TAB,SA TAKE ONE TABLET BY MOUTH TWICE A DAY ORALLY ACTIVE Jey HANSON 2021 [facility] BUPROPION HCL SR (bupropion HCl), 150 MG, TAB SR 12H, ORAL, [facility] [facility], 60 ea. BOTTLE Active [id number] 2023 180 Pharmac y Data Transac [...] ORAL, [employer] [facility], 50 ea. BOTTLE Active [id number] 2023 70 Pharmac y Data Transac tion Service Facilit y DONEPEZIL HCL (DONEPEZIL HCL), 5 MG, TABLET, ORAL, [employer] 1000 ea. BOTTLE Cancele d [id number] : 2023 0 Pharmac y Data Transac tion Service Facilit y DONEPEZIL HCL (DONEPEZIL HCL), 5 MG, TABLET, ORAL, [employer] 1000 ea. BOTTLE Active [id number] 2023 90 Pharmac y Data Transac tion Service Facilit y DONEPEZIL HCL 10MG TAB TAKE ONE-HALF TABLET BY MOUTH EVERY DAY ORALLY ACTIVE Jey HANOSN 2021 [facility] DULOXETINE HCL (duloxetine HCl), 60 MG, CAPSULE DR, ORAL, [employer] 1000 ea. BOTTLE Active [id number] 2023 180 Pharmac y Data Transac tion Service Facilit y DULOXETINE HCL 30MG CAP,EC TAKE 2 CAPSULES BY MOUTH TWICE A DAY ORALLY ACTIVE Jey HANSON 2021 [facility] FAMOTIDINE (famotidine ), 20 MG, TABLET, ORAL, [employer] 1000 ea. BOTTLE Active [id number] 2023 180 Pharmac y Data Transac tion Service Facilit y FAMOTIDINE 20MG TAB TAKE ONE TABLET BY MOUTH TWICE A DAY ORALLY ACTIVE Jey HANSON 2021 [facility] FUROSEMIDE (furosemide ), 40 MG, TABLET, ORAL, [employer], 1000 ea. BOTTLE Active [id number] 2023 180 Pharmac y Data Transac tion Service Facilit y FUROSEMIDE 40MG TAB TAKE ONE TABLET BY MOUTH TWICE A DAY ORALLY ACTIVE Jey HANSON 2021 [facility] GABAPENTIN (gabapentin ), 400 MG, CAPSULE, ORAL, [employer] 500 ea. BOTTLE Active [id number] 2023 270 Pharmac y Data Transac tion Service Facilit y GABAPENTIN 400MG CAP TAKE 1 CAPSULE BY MOUTH THREE TIMES A DAY ORALLY ACTIVE Jey HANSON 2021 [facility] LORAZEPAM (lorazepam) , 0.5 MG, TABLET, ORAL, [employer], 1000 ea. BOTTLE Active [id number] 2023 120 Pharmac y Data Transac tion Service Facilit y LORAZEPAM (lorazepam) , 0.5 MG, TABLET, ORAL, [employer], 1000 ea. BOTTLE Active [id number] 2023 120 Pharmac y Data Transac tion Service Facilit y LORAZEPAM (lorazepam) , 0.5 MG, TABLET, ORAL, [employer], 1000 ea. BOTTLE Active [id number] 2023 120 Pharmac y Data Transac tion Service Facilit y LORAZEPAM (lorazepam) , 0.5 MG, TABLET, ORAL, [employer], 500 ea. BOTTLE Active [id number] 2023 120 Pharmac y Data Transac tion Service Facilit y LORAZEPAM 0.5MG TAB TAKE ONE TABLET BY MOUTH THREE TIMES A DAY AND TAKE TWO TABLETS BY MOUTH AT BEDTIME ORALLY ACTIVE Jagdish BARRETT 2022 [facility] MILK OF MAGNESIA TAKE 30ML BY MOUTH EVERY DAY NEEDED ORALLY ACTIVE Jey HANSON 2021 [facility] MULTIVITAMI NS CAP/TAB TAKE ONE TABLET BY MOUTH EVERY DAY ORALLY ACTIVE Jey HANSON 2021 [facility] NALOXONE HCL 4MG/SPRAY SOLN,SPRAY, NASAL SPRAY 1 DOSE IN ONE NOSTRIL DIRECTED PRN NOSTRI L ACTIVE Jagdish BARRETT N 2022 [facility] OXYCODONE HCL (OXYCODONE HCL), 10 MG, TABLET, ORAL, [employer] 100 ea. BOTTLE Active [id number] 2023 120 Pharmac y Data Transac tion Service Facilit y OXYCODONE HCL (OXYCODONE HCL), 10 MG, TABLET, ORAL, [employer] 100 ea. BOTTLE Active [id number] 2023 120 Pharmac y Data Transac tion Service Facilit y OXYCODONE HCL (OXYCODONE HCL), 10 MG, TABLET, ORAL, [employer] 100 ea. BOTTLE Active [id number] 2023 120 Pharmac y Data Transac tion Service Facilit y OXYCODONE HCL (OXYCODONE HCL), 10 MG, TABLET, ORAL, [employer] 100 ea. BOTTLE Active [id number] 2023 120 Pharmac y Data Transac tion Service Facilit y OXYCODONE HCL (OXYCODONE HCL), 10 MG, TABLET, ORAL, [employer] 100 ea. BOTTLE Active [id number] 2022 120 Pharmac y Data Transac tion Service Facilit y OXYCODONE HCL 5MG TAB TAKE TWO TABLETS BY MOUTH FOUR TIMES A DAY ORALLY ACTIVE Jagdish BARRETT 2022 [facility] POTASSIUM CHLORIDE (potassium chloride), 10 MEQ, TAB ER PRT, ORAL, [employer], 100 ea. BOTTLE Active [id number] 2023 180 Pharmac y Data Transac tion Service Facilit y POTASSIUM CHLORIDE (potassium chloride), 20 MEQ, TAB ER PRT, ORAL, [employer], 100 ea. BOTTLE Active [id number] 2023 90 Pharmac y Data Transac tion Service Facilit y POTASSIUM CHLORIDE 20MEQ TAB,SA (DISPERSIBL E) TAKE ONE TABLET BY MOUTH TWICE A DAY ORALLY ACTIVE Jey HANSON 2021 [facility] SANTYL (collagenas e Clostridium histolyticu m), 250 UNIT/G, OINT. (G), TOPICAL, WHITLOCK&N/UNI LUIS, 30 g TUBE Cancele d [id number] : 2023 0 Pharmac y Data Transac tion Service Facilit y WARFARIN SODIUM (warfarin sodium), 5 MG, TABLET, ORAL, [employer] 1000 ea. BOTTLE Cancele d [id number] : 2022 0 Pharmac y Data Transac tion Service Facilit y WARFARIN SODIUM (WARFARIN SODIUM), 5 MG, TABLET, ORAL, [employer], 1000 ea. BOTTLE Active [id number] 2023 12 Pharmac y Data Transac tion Service Facilit y WARFARIN SODIUM (WARFARIN SODIUM), 5 MG, TABLET, ORAL, [employer] [place], 1000 ea. BOTTLE Active [id number] 2023 40 Pharmac y Data Transac tion Service Facilit y WARFARIN SODIUM (WARFARIN SODIUM), 5 MG, TABLET, ORAL, [employer] [place], 1000 ea. BOTTLE Cancele d [id number] : 2022 0 Pharmac y Data Transac tion Service Facilit y WARFARIN SODIUM (warfarin sodium), 7.5 MG, TABLET, ORAL, [employer] [place], 100 ea. BOTTLE Active [id number] 2023 51 Pharmac y Data Transac tion Service Facilit y WARFARIN SODIUM (warfarin sodium), 7.5 MG, TABLET, ORAL, [employer] [place], 100 ea. BOTTLE Active [id number] 2023 78 Pharmac y Data Transac tion Service Facilit y WARFARIN TAB TAKE 5MG BY MOUTH SUN/THUR S AND TAKE 7.5MG BY MOUTH ALL OTHER DAYS ORALLY ACTIVE Jagdish BARRETT 2022 [facility] Allergies, Adverse Reactions, Alerts Combined list of allergies from Department of [facility] and 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 It does not include entries that were removed or entered in error. Substance Category Reaction Severity Reaction type Status Date Reported Comments Source AMOXICILLIN Propensity to adverse reactions to drug (finding) Eruption active 2 [facility] METOLAZONE Propensity to adverse reactions to drug (finding) Itching active 2 [facility] MORPHINE Propensity to adverse reactions to drug (finding) Delirium active 2 [facility] PIPERACILLIN Propensity to adverse reactions to drug (finding) Eruption active 2 [facility] SULFA DRUGS Propensity to adverse reactions to drug (finding) Eruption active 2 [facility] TAZOBACTAM SODIUM Propensity to adverse reactions to drug (finding) Eruption active 2 [facility] Immunizations Combined list of available immunizations from the Department of [facility] and 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 Immunization Series Date Given Administered By Site Reaction Lot Number CVX Code Drug Admissions Representative Status Comments Source INFLUENZA, UNSPECIFIED FORMULATION 2021 88 complet ed [employer] recall [facility] TD (ADULT), 5 LF TETANUS TOXOID, PRESERVATIVE FREE, ADSORBED 2021 113 complet ed [facility] INFLUENZA, UNSPECIFIED FORMULATION 2020 88 complet ed [facility] COVID-19 (PFIZER), MRNA, LNP-S, PF, 30 MCG/0.3 ML DOSE 3 2020 208 complet ed [facility] COVID-19 (PFIZER), MRNA, LNP-S, PF, 30 MCG/0.3 ML DOSE 2 2020 208 complet ed [facility] COVID-19 (PFIZER), MRNA, LNP-S, PF, 30 MCG/0.3 ML DOSE 1 2020 208 complet ed [facility] PNEUMOCOCCAL CONJUGATE PCV 13 2014 133 complet ed [facility] ZOSTER LIVE 2012 121 complet ed [facility] PNEUMOCOCCAL POLYSACCHARID E PPV23 2010 33 complet ed [facility] TDAP 2010 115 complet ed MIIC [facility] Results Combined list of recent [...] Feb 05, 2023 03:10 PM Reporting Lab: [facility] [address] Performing Lab: [facility] [address] [place] [facility] CYSTATIN C WITH EGFR CYSTATIN C AND GLOMERULAR FILTRATION RATE BY CYSTATIN C-BASED FORMULA PANEL - SERUM OR PLASMA 53 60 02/13 L Specimen Type: PLASMA No comment entered. Ordering Provider: ANKUSH BOWMAN Report Released Date/Time: Feb 05, 2023 03:10 PM Reporting Lab: [facility] [address] Performing Lab: [facility] [address] [place] [facility] BASIC METABOLI C PANEL+MG CREATININE [MASS/VOLU ME] IN SERUM OR PLASMA 0.7 0.7 - 1.2 02/13 Specimen Type: PLASMA No comment entered. Ordering Provider: ANKUSH BOWMAN Report Released Date/Time: Feb 05, 2023 03:10 PM Reporting Lab: [facility] [address] Performing Lab: [facility] [address] [place] [facility] BASIC METABOLI C PANEL+MG UREA NITROGEN [MASS/VOLU ME] IN SERUM OR PLASMA 15 8 - 26 02/13 Specimen Type: PLASMA No comment entered. Ordering Provider: ANKUSH BOWMAN Report Released Date/Time: Feb 05, 2023 03:10 PM Reporting Lab: [facility] [address] Performing Lab: [facility] [address] [place] [facility] BASIC METABOLI C PANEL+MG GLUCOSE [MASS/VOLU ME] IN SERUM OR PLASMA 140 70 - 100 02/13 H Specimen Type: PLASMA No comment entered. Ordering Provider: ANKUSH BOWMAN Report Released Date/Time: Feb 05, 2023 03:10 PM Reporting Lab: [facility] [address] Performing Lab: [facility] [address] [place] [facility] BASIC METABOLI C PANEL+MG SODIUM [MOLES/VOL UME] IN SERUM OR PLASMA 135 136 - 145 02/13 L Specimen Type: PLASMA No comment entered. Ordering Provider: ANKUSH BOWMAN Report Released Date/Time: Feb 05, 2023 03:10 PM Reporting Lab: [facility] [address] Performing Lab: [facility] [address] [place] [facility] BASIC METABOLI C PANEL+MG POTASSIUM [MOLES/VOL UME] IN SERUM OR PLASMA 4.0 3.5 - 5.1 02/13 Specimen Type: PLASMA No comment entered. Ordering Provider: ANKUSH BOWMAN Report Released Date/Time: Feb 05, 2023 03:10 PM Reporting Lab: [facility] [address] Performing Lab: [facility] [address] [place] [facility] BASIC METABOLI C PANEL+MG CHLORIDE [MOLES/VOL UME] IN SERUM OR PLASMA 99 98 - 107 02/13 Specimen Type: PLASMA No comment entered. Ordering Provider: ANKUSH BOWMAN Report Released Date/Time: Feb 05, 2023 03:10 PM Reporting Lab: [facility] [address] Performing Lab: [facility] [address] [place] [facility] BASIC METABOLI C PANEL+MG CARBON DIOXIDE, TOTAL [MOLES/VOL UME] IN SERUM OR PLASMA 29 22 - 29 02/13 Specimen Type: PLASMA No comment entered. Ordering Provider: ANKUSH BOWMAN Report Released Date/Time: Feb 05, 2023 03:10 PM Reporting Lab: [facility] [address] Performing Lab: [facility] [address] [place] [facility] BASIC METABOLI C PANEL+MG CALCIUM [MASS/VOLU ME] IN SERUM OR PLASMA 9.2 8.4 - 10.2 02/13 Specimen Type: PLASMA No comment entered. Ordering Provider: ANKUSH BOWMAN Report Released Date/Time: Feb 05, 2023 03:10 PM Reporting Lab: [facility] [address] Performing Lab: [facility] [address] [place] [facility] BASIC METABOLI C PANEL+MG MAGNESIUM [MASS/VOLU ME] IN SERUM OR PLASMA 2.0 1.6 - 2.6 02/13 Specimen Type: PLASMA No comment entered. Ordering Provider: ANKUSH BOWMAN Report Released Date/Time: Feb 05, 2023 03:10 PM Reporting Lab: [facility] [address] Performing Lab: [facility] [address] [place] [facility] BASIC METABOLI C PANEL+MG ANION GAP IN SERUM OR PLASMA 7 5 - 15 02/13 Specimen Type: PLASMA No comment entered. Ordering Provider: ANKUSH BOWMAN Report Released Date/Time: Feb 05, 2023 03:10 PM Reporting Lab: [facility] [address] Performing Lab: [facility] [address] [place] [facility] BASIC METABOLI C PANEL+MG GLOMERULAR FILTRATION RATE/1.73 SQ M.PREDICTE D [VOLUME RATE/AREA] IN SERUM, PLASMA OR BLOOD BY CREATININE -BASED FORMULA (CKD-EPI) >90 60 02/13 Specimen Type: PLASMA No comment entered. Ordering Provider: ANKUSH BOWMAN Report Released Date/Time: Feb 05, 2023 03:10 PM Reporting Lab: [facility] [address] Performing Lab: [facility] [address] [place] [facility] URINALYS IS COLOR OF URINE YELLOW 10/08 Specimen Type: URINE No comment entered. Ordering Provider: ANKUSH BOWMAN Report Released Date/Time: Sep 24, 2022 01:55 PM Reporting Lab: [facility] [address] Performing Lab: [facility] [address] [place] [facility] URINALYS IS SPECIFIC GRAVITY OF URINE 1.023 1.003 - 1.035 10/08 Specimen Type: URINE No comment entered. Ordering Provider: ANKUSH BOWMAN Report Released Date/Time: Sep 24, 2022 01:55 PM Reporting Lab: [facility] [address] Performing Lab: [facility] [address] [place] [facility] URINALYS IS BILIRUBIN. TOTAL [PRESENCE] IN URINE BY TEST STRIP NEGATIVE 10/08 Specimen Type: URINE No comment entered. Ordering Provider: ANKUSH BOWMAN Report Released Date/Time: Sep 24, 2022 01:55 PM Reporting Lab: [facility] [address] Performing Lab: [facility] [address] [place] [facility] URINALYS IS KETONES [MASS/VOLU ME] IN URINE BY TEST STRIP NEGATIVE 10/08 Specimen Type: URINE No comment entered. Ordering Provider: ANKUSH BOWMAN Report Released Date/Time: Sep 24, 2022 01:55 PM Reporting Lab: [facility] [address] Performing Lab: [facility] [address] [place] [facility] URINALYS IS GLUCOSE [MASS/VOLU ME] IN URINE BY TEST STRIP NEGATIVE <30 - 30 10/08 Specimen Type: URINE No comment entered. Ordering Provider: ANKUSH BOWMAN Report Released Date/Time: Sep 24, 2022 01:55 PM Reporting Lab: [facility] [address] Performing Lab: [facility] [address] [place] [facility] URINALYS IS PROTEIN [MASS/VOLU ME] IN URINE BY TEST STRIP 30 <20 - 20 10/08 Specimen Type: URINE No comment entered. Ordering Provider: ANKUSH BOWMAN Report Released Date/Time: Sep 24, 2022 01:55 PM Reporting Lab: [facility] [address] Performing Lab: [facility] [address] [place] [facility] URINALYS IS PH OF URINE BY TEST STRIP 7.5 5.0 - 8.0 10/08 Specimen Type: URINE No comment entered. Ordering Provider: ANKUSH BOWMAN Report Released Date/Time: Sep 24, 2022 01:55 PM Reporting Lab: [facility] [address] Performing Lab: [facility] [address] [place] [facility] URINALYS IS LEUKOCYTES [#/AREA] IN URINE SEDIMENT BY MICROSCOPY HIGH POWER FIELD >180 0 - 7 10/08 H Specimen Type: URINE No comment entered. Ordering Provider: ANKUSH BOWMAN Report Released Date/Time: Sep 24, 2022 01:55 PM Reporting Lab: [facility] [address] Performing Lab: [facility] [address] [place] [facility] URINALYS IS BACTERIA [PRESENCE] IN URINE SEDIMENT BY LIGHT MICROSCOPY MANY 10/08 Specimen Type: URINE No comment entered. Ordering Provider: ANKUSH BOWMAN Report Released Date/Time: Sep 24, 2022 01:55 PM Reporting Lab: [facility] [address] Performing Lab: [facility] [address] [place] [facility] URINALYS IS ERYTHROCYT ES [#/AREA] IN URINE SEDIMENT BY MICROSCOPY HIGH POWER FIELD 33 0 - 3 10/08 H Specimen Type: URINE No comment entered. Ordering Provider: ANKUSH BOWMAN Report Released Date/Time: Sep 24, 2022 01:55 PM Reporting Lab: [facility] [address] Performing Lab: [facility] [address] [place] [facility] URINALYS IS APPEARANCE OF URINE EX.TURBI D 10/08 Specimen Type: URINE No comment entered. Ordering Provider: ANKUSH BOWMAN Report Released Date/Time: Sep 24, 2022 01:55 PM Reporting Lab: [facility] [address] Performing Lab: [facility] [address] [place] [facility] URINALYS IS EPITHELIAL CELLS.SQUA MOUS [#/AREA] IN URINE SEDIMENT BY MICROSCOPY HIGH POWER FIELD 1 10/08 Specimen Type: URINE No comment entered. Ordering Provider: ANKUSH BOWMAN Report Released Date/Time: Sep 24, 2022 01:55 PM Reporting Lab: [facility] [address] Performing Lab: [facility] [address] [place] [facility] URINALYS IS HEMOGLOBIN [PRESENCE] IN URINE BY TEST STRIP 1+ 10/08 Specimen Type: URINE No comment entered. Ordering Provider: ANKUSH BOWMAN Report Released Date/Time: Sep 24, 2022 01:55 PM Reporting Lab: [facility] [address] Performing Lab: [facility] [address] [place] [facility] URINALYS IS NITRITE [PRESENCE] IN URINE BY TEST STRIP NEGATIVE 10/08 Specimen Type: URINE No comment entered. Ordering Provider: ANKUSH BOWMAN Report Released Date/Time: Sep 24, 2022 01:55 PM Reporting Lab: [facility] [address] Performing Lab: [facility] [address] [place] [facility] URINALYS IS LEUKOCYTE CLUMPS [#/VOLUME] IN URINE BY AUTOMATED COUNT PRESENT 10/08 Specimen Type: URINE No comment entered. Ordering Provider: ANKUSH BOWMAN Report Released Date/Time: Sep 24, 2022 01:55 PM Reporting Lab: [facility] [address] Performing Lab: [facility] [address] [place] [facility] URINALYS IS LEUKOCYTE ESTERASE [PRESENCE] IN URINE BY TEST STRIP 500 10/08 Specimen Type: URINE No comment entered. Ordering Provider: ANKUSH BOWMAN Report Released Date/Time: Sep 24, 2022 01:55 PM Reporting Lab: [facility] [address] Performing Lab: [facility] [address] [place] [facility] ALBUMIN ALBUMIN [MASS/VOLU ME] IN SERUM OR PLASMA 4.2 3.5 - 5.2 10/08 Specimen Type: PLASMA No comment entered. Ordering Provider: ANKUSH BOWMAN Report Released Date/Time: Sep 24, 2022 01:55 PM Reporting Lab: [facility] [address] Performing Lab: [facility] [address] [place] [facility] PRE-ALBU MIN PREALBUMIN [MASS/VOLU ME] IN SERUM OR PLASMA 28.4 14.0 - 45.0 10/08 Specimen Type: SERUM No comment entered. Ordering Provider: ANKUSH BOWMAN Report Released Date/Time: Sep 24, 2022 01:55 PM Reporting Lab: [facility] [address] Performing Lab: [facility] [address] [place] [facility] CBC & DIFF LEUKOCYTES [#/VOLUME] IN BLOOD BY AUTOMATED COUNT 7.32 4.0 - 11.0 10/08 Specimen Type: BLOOD Comment: Automated Differentia l Performed Ordering Provider: ANKUSH BOWMAN Report Released Date/Time: Sep 24, 2022 01:55 PM Reporting Lab: [facility] [address] Performing Lab: [facility] [address] [place] [facility] CBC & DIFF ERYTHROCYT ES [#/VOLUME] IN BLOOD BY AUTOMATED COUNT 4.80 4.6 - 6.2 10/08 Specimen Type: BLOOD Comment: Automated Differentia l Performed Ordering Provider: ANKUSH BOWMAN Report Released Date/Time: Sep 24, 2022 01:55 PM Reporting Lab: [facility] [address] Performing Lab: [facility] [address] [place] [facility] CBC & DIFF HEMOGLOBIN [MASS/VOLU ME] IN BLOOD 14.7 13.5 - 17.9 10/08 Specimen Type: BLOOD Comment: Automated Differentia l Performed Ordering Provider: ANKUSH BOWMAN Report Released Date/Time: Sep 24, 2022 01:55 PM Reporting Lab: [facility] [address] Performing Lab: [facility] [address] [place] [facility] CBC & DIFF HEMATOCRIT [VOLUME FRACTION] OF BLOOD BY AUTOMATED COUNT 44.2 41 - 54 10/08 Specimen Type: BLOOD Comment: Automated Differentia l Performed Ordering Provider: ANKUSH BOWMAN Report Released Date/Time: Sep 24, 2022 01:55 PM Reporting Lab: [facility] [address] Performing Lab: [facility] [address] [place] [facility] CBC & DIFF MCV [ENTITIC VOLUME] BY AUTOMATED COUNT 92.1 80 - 100 10/08 Specimen Type: BLOOD Comment: Automated Differentia l Performed Ordering Provider: ANKUSH BOWMAN Report Released Date/Time: Sep 24, 2022 01:55 PM Reporting Lab: [facility] [address] Performing Lab: [facility] [address] [place] [facility] CBC & DIFF MCH [ENTITIC MASS] BY AUTOMATED COUNT 30.6 27 - 33 10/08 Specimen Type: BLOOD Comment: Automated Differentia l Performed Ordering Provider: ANKUSH BOWMAN Report Released Date/Time: Sep 24, 2022 01:55 PM Reporting Lab: [facility] [address] Performing Lab: [facility] [address] [place] [facility] CBC & DIFF MCHC [MASS/VOLU ME] BY AUTOMATED COUNT 33.3 32.0 - 37.5 10/08 Specimen Type: BLOOD Comment: Automated Differentia l Performed Ordering Provider: ANKUSH BOWMAN Report Released Date/Time: Sep 24, 2022 01:55 PM Reporting Lab: [facility] [address] Performing Lab: [facility] [address] [place] [facility] CBC & DIFF PLATELETS [#/VOLUME] IN BLOOD BY AUTOMATED COUNT 144 150 - 400 10/08 L Specimen Type: BLOOD Comment: Automated Differentia l Performed Ordering Provider: ANKUSH BOWMAN Report Released Date/Time: Sep 24, 2022 01:55 PM Reporting Lab: [facility] [address] Performing Lab: [facility] [address] [place] [facility] CBC & DIFF PLATELET MEAN VOLUME [ENTITIC VOLUME] IN BLOOD BY AUTOMATED COUNT 10.8 7.4 - 10.4 10/08 H Specimen Type: BLOOD Comment: Automated Differentia l Performed Ordering Provider: ANKUSH BOWMAN Report Released Date/Time: Sep 24, 2022 01:55 PM Reporting Lab: [facility] [address] Performing Lab: [facility] [address] [place] [facility] CBC & DIFF NEUTROPHIL S/100 LEUKOCYTES IN BLOOD BY MANUAL COUNT 55.5 10/08 Specimen Type: BLOOD Comment: Automated Differentia l Performed Ordering Provider: ANKUSH BOWMAN Report Released Date/Time: Sep 24, 2022 01:55 PM Reporting Lab: [facility] [address] Performing Lab: [facility] [address] [place] [facility] CBC & DIFF LYMPHOCYTE S/100 LEUKOCYTES IN BLOOD BY MANUAL COUNT 31.4 10/08 Specimen Type: BLOOD Comment: Automated Differentia l Performed Ordering Provider: ANKUSH BOWMAN Report Released Date/Time: Sep 24, 2022 01:55 PM Reporting Lab: [facility] [address] Performing Lab: [facility] [address] [place] [facility] CBC & DIFF MONOCYTES/ 100 LEUKOCYTES IN BLOOD BY AUTOMATED COUNT 10.2 10/08 Specimen Type: BLOOD Comment: Automated Differentia l Performed Ordering Provider: ANKUSH BOWMAN Report Released Date/Time: Sep 24, 2022 01:55 PM Reporting Lab: [facility] [address] Performing Lab: [facility] [address] [place] [facility] CBC & DIFF EOSINOPHIL S/100 LEUKOCYTES IN BLOOD BY AUTOMATED COUNT 2.2 10/08 Specimen Type: BLOOD Comment: Automated Differentia l Performed Ordering Provider: ANKUSH BOWMAN Report Released Date/Time: Sep 24, 2022 01:55 PM Reporting Lab: [facility] [address] Performing Lab: [facility] [address] [place] [facility] CBC & DIFF BASOPHILS/ 100 LEUKOCYTES IN BLOOD BY MANUAL COUNT 0.4 10/08 Specimen Type: BLOOD Comment: Automated Differentia l Performed Ordering Provider: ANKUSH BOWMAN Report Released Date/Time: Sep 24, 2022 01:55 PM Reporting Lab: [facility] [address] Performing Lab: [facility] [address] [place] [facility] CBC & DIFF ERYTHROCYT E DISTRIBUTI ON WIDTH [RATIO] BY AUTOMATED COUNT 15.9 11.5 - 14.5 10/08 H Specimen Type: BLOOD Comment: Automated Differentia l Performed Ordering Provider: ANKUSH BOWMAN Report Released Date/Time: Sep 24, 2022 01:55 PM Reporting Lab: [facility] [address] Performing Lab: [facility] [address] [place] [facility] CBC & DIFF LYMPHOCYTE S [#/VOLUME] IN BLOOD BY AUTOMATED COUNT 2.30 1.0 - 4.0 10/08 Specimen Type: BLOOD Comment: Automated Differentia l Performed Ordering Provider: ANKUSH BOWMAN Report Released Date/Time: Sep 24, 2022 01:55 PM Reporting Lab: [facility] [address] Performing Lab: [facility] [address] [place] [facility] CBC & DIFF MONOCYTES [#/VOLUME] IN BLOOD BY AUTOMATED COUNT 0.75 0.1 - 1.0 10/08 Specimen Type: BLOOD Comment: Automated Differentia l Performed Ordering Provider: ANKUSH BOWMAN Report Released Date/Time: Sep 24, 2022 01:55 PM Reporting Lab: [facility] [address] Performing Lab: [facility] [address] [place] [facility] CBC & DIFF NEUTROPHIL S [#/VOLUME] IN BLOOD BY AUTOMATED COUNT 4.06 2.0 - 7.7 10/08 Specimen Type: BLOOD Comment: Automated Differentia l Performed Ordering Provider: ANKUSH BOWMAN Report Released Date/Time: Sep 24, 2022 01:55 PM Reporting Lab: [facility] [address] Performing Lab: [facility] [address] [place] [facility] CBC & DIFF EOSINOPHIL S [#/VOLUME] IN BLOOD BY AUTOMATED COUNT 0.16 0 - 0.5 10/08 Specimen Type: BLOOD Comment: Automated Differentia l Performed Ordering Provider: ANKUSH BOWMAN Report Released Date/Time: Sep 24, 2022 01:55 PM Reporting Lab: [facility] [address] Performing Lab: [facility] [address] [place] [facility] CBC & DIFF BASOPHILS [#/VOLUME] IN BLOOD BY AUTOMATED COUNT 0.03 0 - 0.2 10/08 Specimen Type: BLOOD Comment: Automated Differentia l Performed Ordering Provider: ANKUSH BOWMAN Report Released Date/Time: Sep 24, 2022 01:55 PM Reporting Lab: [facility] [address] Performing Lab: [facility] [address] [place] [facility] CBC & DIFF IG(META,MY MALACHI,PRO) 0.3 10/08 Specimen Type: BLOOD Comment: Automated Differentia l Performed Ordering Provider: ANKUSH BOWMAN Report Released Date/Time: Sep 24, 2022 01:55 PM Reporting Lab: [facility] [address] Performing Lab: [facility] [address] [place] [facility] CBC & DIFF IMMATURE GRANULOCYT ES [PRESENCE] IN BLOOD BY AUTOMATED COUNT 0.02 0 - 0.1 10/08 Specimen Type: BLOOD Comment: Automated Differentia l Performed Ordering Provider: ANKUSH BOWMAN Report Released Date/Time: Sep 24, 2022 01:55 PM Reporting Lab: [facility] [address] Performing Lab: [facility] [address] [place] [facility] COMPREHE NSIVE METABOLI C PANEL+MG CREATININE [MASS/VOLU ME] IN SERUM OR PLASMA 0.7 0.7 - 1.2 10/08 Specimen Type: PLASMA No comment entered. Ordering Provider: ANKUSH BOWMAN Report Released Date/Time: Sep 24, 2022 01:55 PM Reporting Lab: [facility] [address] Performing Lab: [facility] [address] [place] [facility] COMPREHE NSIVE METABOLI C PANEL+MG UREA NITROGEN [MASS/VOLU ME] IN SERUM OR PLASMA 16 8 - 26 11/28 /2022 Specimen Type: PLASMA No comment entered. Ordering Provider: ANKUSH BOWMAN Report Released Date/Time: Sep 24, 2022 01:55 PM Reporting Lab: [facility] [address] Performing Lab: [facility] [address] [place] [facility] COMPREHE NSIVE METABOLI C PANEL+MG GLUCOSE [MASS/VOLU ME] IN SERUM OR PLASMA 94 70 - 100 10/08 Specimen Type: PLASMA No comment entered. Ordering Provider: ANKUSH BOWMAN Report Released Date/Time: Sep 24, 2022 01:55 PM Reporting Lab: [facility] [address] Performing Lab: [facility] [address] [place] [facility] COMPREHE NSIVE METABOLI C PANEL+MG SODIUM [MOLES/VOL UME] IN SERUM OR PLASMA 138 136 - 145 10/08 Specimen Type: PLASMA No comment entered. Ordering Provider: ANKUSH BOWMAN Report Released Date/Time: Sep 24, 2022 01:55 PM Reporting Lab: [facility] [address] Performing Lab: [facility] [address] [place] [facility] COMPREHE NSIVE METABOLI C PANEL+MG POTASSIUM [MOLES/VOL UME] IN SERUM OR PLASMA 3.9 3.5 - 5.1 10/08 Specimen Type: PLASMA No comment entered. Ordering Provider: ANKUSH BOWMAN Report Released Date/Time: Sep 24, 2022 01:55 PM Reporting Lab: [facility] [address] Performing Lab: [facility] [address] [place] [facility] COMPREHE NSIVE METABOLI C PANEL+MG CHLORIDE [MOLES/VOL UME] IN SERUM OR PLASMA 101 98 - 107 10/08 Specimen Type: PLASMA No comment entered. Ordering Provider: ANKUSH BOWMAN Report Released Date/Time: Sep 24, 2022 01:55 PM Reporting Lab: [facility] [address] Performing Lab: [facility] [address] [place] [facility] COMPREHE NSIVE METABOLI C PANEL+MG CARBON DIOXIDE, TOTAL [MOLES/VOL UME] IN SERUM OR PLASMA - 10/08 Specimen Type: PLASMA No comment entered. Ordering Provider: ANKUSH BOWMAN Report Released Date/Time: Sep 24, 2022 01:55 PM Reporting Lab: [facility] [address] Performing Lab: [facility] [address] [place] [facility] COMPREHE NSIVE METABOLI C PANEL+MG CALCIUM [MASS/VOLU ME] IN SERUM OR PLASMA 9.7 8.4 - 10.2 10/08 Specimen Type: PLASMA No comment entered. Ordering Provider: ANKUSH BOWMAN Report Released Date/Time: Sep 24, 2022 01:55 PM Reporting Lab: [facility] [address] Performing Lab: [facility] [address] [place] [facility] COMPREHE NSIVE METABOLI C PANEL+MG PROTEIN [MASS/VOLU ME] IN SERUM OR PLASMA 7.6 6.0 - 8.3 10/08 Specimen Type: PLASMA No comment entered. Ordering Provider: ANKUSH BOWMAN Report Released Date/Time: Sep 24, 2022 01:55 PM Reporting Lab: [facility] [address] Performing Lab: [facility] [address] [place] [facility] COMPREHE NSIVE METABOLI C PANEL+MG ALBUMIN [MASS/VOLU ME] IN SERUM OR PLASMA 4.2 3.5 - 5.2 10/08 Specimen Type: PLASMA No comment entered. Ordering Provider: ANKUSH BOWMAN Report Released Date/Time: Sep 24, 2022 01:55 PM Reporting Lab: [facility] [address] Performing Lab: [facility] [address] [place] [facility] COMPREHE NSIVE METABOLI C PANEL+MG BILIRUBIN. TOTAL [MASS/VOLU ME] IN SERUM OR PLASMA 0.6 0.2 - 1.2 10/08 Specimen Type: PLASMA No comment entered. Ordering Provider: ANKUSH BOWMAN Report Released Date/Time: Sep 24, 2022 01:55 PM Reporting Lab: [facility] [address] Performing Lab: [facility] [address] [place] [facility] COMPREHE NSIVE METABOLI C PANEL+MG MAGNESIUM [MASS/VOLU ME] IN SERUM OR PLASMA 2.1 1.6 - 2.6 10/08 Specimen Type: PLASMA No comment entered. Ordering Provider: ANKUSH BOWMAN Report Released Date/Time: Sep 24, 2022 01:55 PM Reporting Lab: [facility] [address] Performing Lab: [facility] [address] [place] [facility] COMPREHE NSIVE METABOLI C PANEL+MG ANION GAP IN SERUM OR PLASMA 9 5 - 15 10/08 Specimen Type: PLASMA No comment entered. Ordering Provider: ANKUSH BOWMAN Report Released Date/Time: Sep 24, 2022 01:55 PM Reporting Lab: [facility] [address] Performing Lab: [facility] [address] [place] [facility] COMPREHE NSIVE METABOLI C PANEL+MG ALKALINE PHOSPHATAS E [ENZYMATIC ACTIVITY/V OLUME] IN SERUM OR PLASMA 96 40 - 150 10/08 Specimen Type: PLASMA No comment entered. Ordering Provider: ANKUSH BOWMAN Report Released Date/Time: Sep 24, 2022 01:55 PM Reporting Lab: [facility] [address] Performing Lab: [facility] [address] [place] [facility] COMPREHE NSIVE METABOLI C PANEL+MG ALANINE AMINOTRANS FERASE [ENZYMATIC ACTIVITY/V OLUME] IN SERUM OR PLASMA 29 <55 - 55 10/08 Specimen Type: PLASMA No comment entered. Ordering Provider: ANKUSH BOWMAN Report Released Date/Time: Sep 24, 2022 01:55 PM Reporting Lab: [facility] [address] Performing Lab: [facility] [address] [place] [facility] COMPREHE NSIVE METABOLI C PANEL+MG ASPARTATE AMINOTRANS FERASE [ENZYMATIC ACTIVITY/V OLUME] IN SERUM OR PLASMA 22 <34 - 34 10/08 Specimen Type: PLASMA No comment entered. Ordering Provider: ANKUSH BOWMAN Report Released Date/Time: Sep 24, 2022 01:55 PM Reporting Lab: [facility] [address] Performing Lab: [facility] [address] [place] [facility] COMPREHE NSIVE METABOLI C PANEL+MG GLOMERULAR FILTRATION RATE/1.73 SQ M.PREDICTE D [VOLUME RATE/AREA] IN SERUM, PLASMA OR BLOOD BY CREATININE -BASED FORMULA (CKD-EPI) >90 60 10/08 Specimen Type: PLASMA No comment entered. Ordering Provider: ANKUSH BOWMAN Report Released Date/Time: Sep 24, 2022 01:55 PM Reporting Lab: [facility] [address] Performing Lab: [facility] [address] [place] [facility] CYSTATIN C WITH EGFR CYSTATIN C [MASS/VOLU ME] IN SERUM OR PLASMA 1.38 0.51 - 1.05 10/08 H Specimen Type: PLASMA No comment entered. Ordering Provider: ANKUSH BOWMAN Report Released Date/Time: Sep 24, 2022 01:55 PM Reporting Lab: [facility] [address] Performing Lab: [facility] [address] [place] [facility] CYSTATIN C WITH EGFR CYSTATIN C AND GLOMERULAR FILTRATION RATE BY CYSTATIN-B ASED FORMULA PANEL - SERUM OR PLASMA 48 60 10/08 L Specimen Type: PLASMA No comment entered. Ordering Provider: ANKUSH BOWMAN Report Released Date/Time: Sep 24, 2022 01:55 PM Reporting Lab: [facility] [address] Performing Lab: [facility] [address] [place] [facility] VIT D 25-OH,TO ZAMZAM 25-HYDROXY VITAMIN D3 [MASS/VOLU ME] IN SERUM OR PLASMA 54 12 - 50 10/08 H Specimen Type: SERUM No comment entered. Ordering Provider: ANKUSH BOWAMN Report Released Date/Time: Sep 24, 2022 01:55 PM Reporting Lab: [facility] [address] Performing Lab: [facility] [address] [place] [facility] CBC LEUKOCYTES [#/VOLUME] IN BLOOD BY AUTOMATED COUNT 6.27 4.0 - 11.0 05/28 Specimen Type: BLOOD No comment entered. Ordering Provider: GERMANIA HANSON Report Released Date/Time: May 28, 2022 03:06 PM Reporting Lab: [facility] [address] Performing Lab: [facility] [address] [facility] CBC ERYTHROCYT ES [#/VOLUME] IN BLOOD BY AUTOMATED COUNT 4.43 4.6 - 6.2 05/28 L Specimen Type: BLOOD No comment entered. Ordering Provider: GERMANIA HANSON Report Released Date/Time: May 28, 2022 03:06 PM Reporting Lab: [facility] [address] Performing Lab: [facility] [address] [facility] CBC HEMOGLOBIN [MASS/VOLU ME] IN BLOOD 12.9 13.5 - 17.9 05/28 L Specimen Type: BLOOD No comment entered. Ordering Provider: GERMANIA HANSON Report Released Date/Time: May 28, 2022 03:06 PM Reporting Lab: [facility] [address] Performing Lab: [facility] [address] [facility] CBC HEMATOCRIT [VOLUME FRACTION] OF BLOOD BY AUTOMATED COUNT 40.2 41 - 54 05/28 L Specimen Type: BLOOD No comment entered. Ordering Provider: GERMANIA HANSON Report Released Date/Time: May 28, 2022 03:06 PM Reporting Lab: [facility] [address] Performing Lab: [facility] [address] [facility] CBC MCV [ENTITIC VOLUME] BY AUTOMATED COUNT 90.7 80 - 100 05/28 Specimen Type: BLOOD No comment entered. Ordering Provider: GERMANIA HANSON Report Released Date/Time: May 28, 2022 03:06 PM Reporting Lab: [facility] [address] Performing Lab: [facility] [address] [facility] CBC MCH [ENTITIC MASS] BY AUTOMATED COUNT 29.1 27 - 33 05/28 Specimen Type: BLOOD No comment entered. Ordering Provider: GERMANIA HANSON Report Released Date/Time: May 28, 2022 03:06 PM Reporting Lab: [facility] [address] Performing Lab: [facility] [address] [facility] CBC MCHC [MASS/VOLU ME] BY AUTOMATED COUNT 32.1 32.0 - 37.5 05/28 Specimen Type: BLOOD No comment entered. Ordering Provider: GERMANIA HANSON Report Released Date/Time: May 28, 2022 03:06 PM Reporting Lab: [facility] [address] Performing Lab: [facility] [address] [facility] CBC PLATELETS [#/VOLUME] IN BLOOD BY AUTOMATED COUNT 183 150 - 400 05/28 Specimen Type: BLOOD No comment entered. Ordering Provider: GERMANIA HANSON Report Released Date/Time: May 28, 2022 03:06 PM Reporting Lab: [facility] [address] Performing Lab: [facility] [address] [facility] CBC PLATELET MEAN VOLUME [ENTITIC VOLUME] IN BLOOD BY AUTOMATED COUNT 10.6 7.4 - 10.4 05/28 H Specimen Type: BLOOD No comment entered. Ordering Provider: GERMANIA HANSON Report Released Date/Time: May 28, 2022 03:06 PM Reporting Lab: [facility] [address] Performing Lab: [facility] [address] [facility] CBC ERYTHROCYT E DISTRIBUTI ON WIDTH [RATIO] BY AUTOMATED COUNT 13.5 11.5 - 14.5 05/28 Specimen Type: BLOOD No comment entered. Ordering Provider: GERMANIA HANSON Report Released Date/Time: May 28, 2022 03:06 PM Reporting Lab: [facility] [address] Performing Lab: [facility] [address] [facility] Encounters Combined list of: 1) Encounters from Department of Veterans Affairs facilities going back up to thelast 18 months. 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 Location Location Details Encounter Type Encounter Number Reason For Visit Attending Provider ADM Date DC Date Status Disposition Source [facility] Outpatient Encounter [id number] 09/20 [facility] OFFICE O/P EST MINIMAL PROB [id number] Diagnos is: ICD-10- CM G82.20 Paraple mary kay, unspeci fied
Jey PATTON V 10/08 [facility] ASSISTIVE TECHNOLOGY ASSESS [id number] Diagnos is: ICD-10- CM Z73.6 Limitat ion of activit ies due to disabil ity<br/ > BOUSLOG,RY AN P 10/08 [facility] Outpatient Encounter [id number] 10/09 [facility] [facility] Outpatient Encounter [id number] 10/11 [facility] HC PRO PHONE CALL 5-10 MIN [id number] Diagnos is: ICD-10- CM Z73.6 Limitat ion of activit ies due to disabil ity<br/ > AVE HALEY 12/13 [facility] Outpatient Encounter [id number] 01/08 [facility] HC PRO PHONE CALL 21-30 MIN [id number] Diagnos is: ICD-10- CM G82.20 Paraple mary kay, unspeci fied
Hever CASTRO 01/08 [facility] Outpatient Encounter [id number] 01/09 [facility] DIABETIC MANAGEMENT PROGRAM, [id number] Diagnos is: ICD-10- CM G82.20 Paraple mary kay, unspeci fied
SERJIOMIGUEL ANGELPool Dubon 01/30 [facility] Outpatient Encounter [id number] 02/05 [facility] MTMS BY PHARM ADDL 15 MIN [id number] Diagnos is: ICD-10- CM G82.20 Paraple mary kay, unspeci fied
MANPREET BARRETT 02/05 [facility] OT EVAL LOW COMPLEX 30 MIN [id number] Diagnos is: ICD-10- CM Z73.6 Limitat ion of activit ies due to disabil ity<br/ > Bryn PARDO 02/05 [facility] OFF/OP EST MAY X REQ PHY/QHP [id number] Diagnos is: ICD-10- CM G82.20 Paraple mary kay, unspeci fied
JOSUÉ ZAMORA 02/05 [facility] PSYCH DIAGNOSTIC EVALUATION [id number] Diagnos is: ICD-10- CM F32.A Depress ion, unspeci fied
BINU GAMEZ 02/05 [facility] OFFICE O/P EST MOD 30-39 MIN [id number] Diagnos is: ICD-10- CM G82.20 Paraple mary kay, unspeci fied
ME LOGAN BOWMAN 02/05 [facility] PSYCH DIAGNOSTIC EVALUATION [id number] Diagnos is: ICD-10- CM G82.20 Paraple mary kay, unspeci fied
JENNIFFER,MAHI DESIRE Miranda 02/05 [facility] [place] [id number] Diagnos is: ICD-10- CM Z71.3 Dietary cosmetic counselor ing and surveil payal<b r/> Katia ARCHER 02/05 [facility] [place] [id number] Diagnos is: ICD-10- CM Z43.3 Encount er for attenti on to colosto my
VIOLA YOON 02/08 [facility] OFFICE O/P EST HI 40-54 MIN [id number] Diagnos is: ICD-10- CM G82.20 Paraple mary kay, unspeci fied
ME LOGAN BOWMAN 02/13 [facility] WHEELCHAIR MNGMENT TRAINING [id number] Diagnos is: ICD-10- CM Z73.6 Limitat ion of activit ies due to disabil ity<br/ > BOUSLOG,RY AN P 02/13 [facility] Outpatient Encounter [id number] 02/19 [facility] HC PRO PHONE CALL 11-20 MIN [id number] Diagnos is: ICD-10- CM Z73.6 Limitat ion of activit ies due to disabil ity<br/ > BOUSLOG,RY AN P 04/23 [facility] Outpatient Encounter [id number] 04/24 [facility] Outpatient Encounter [id number] 05/24 [facility] OFF/OP EST MAY X REQ PHY/QHP [id number] Diagnos is: ICD-10- CM G82.20 Paraple mary kay, unspeci fied
VIOLA YOON NDA 05/28 [facility] WHEELCHAIR MNGMENT TRAINING [id number] Diagnos is: ICD-10- CM Z73.6 Limitat ion of activit ies due to disabil ity<br/ > BOUSLOG,RY AN P 06/10 [facility] Outpatient Encounter [id number] 10/28 [facility] Outpatient Encounter [id number] 11/20 [facility] Social History Combined list of available smoking, tobacco, and other social history from 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 Social History Type Response Date Comment [facility] e Tobacco smoking status [facility]-TO[facility]AC[facility] NEVER USED 05/28/20 22 SADAF TREVINO [facility] This section is an empty social history section. DoD Advance Directives List of completed, amended, or rescinded Advance Directives on record at Department of 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 An actual copy of the Directive is not included. Date Advance Directive Provider Source 02/05/2023 ADVANCE DIRECTIVE DISCUSSION GUSTAVO ABAD [facility]
--- OUTSIDE RECORDS SUMMARY | 2024-03-16 12:25 | XMS_ITS | Encounter Summary ---
Author Name Unknown Organization [facility] Address [address], [place] [address] Care Team Providers Care Account Development Executive Name Role Phone [place] Squires MD Primary Care Provider Encounter Details Date Type Department Care Team ([facility] st Contact Info) Description 11/10/2014 Correspondence [facility] Physical Therapy [address] [place] [address] Trudi Raymundo, PT [address] [place] [address] LETTER OF MEDICAL NECESSITY Social History Tobacco [...] on filedocumented in this encounter Care Teams Account Development Executive Relationship Specialty Start Date End Date [place] Squires [facility] [address] [facility] [address] PCP - General Family Practice 03/08/16 documented as of this encounter
--- OUTSIDE RECORDS SUMMARY | 2024-03-16 12:25 | XMS_ITS | Encounter Summary ---
Author Name Unknown Organization [facility] Address [address], [place] [address] Care Team Providers Care Manager Pharmaceutical Name Role Phone [place] Squires MD Primary [...] filedocumented in this encounter Care Teams Manager Pharmaceutical Relationship Specialty Start Date End Date [place] Squires MD [address] [facility] [place] [address] PCP - General Family Practice 03/08/16 documented as of this encounter
--- OUTSIDE RECORDS SUMMARY | 2024-03-16 12:25 | XMS_ITS | Encounter Summary ---
Author Name Unknown Organization [facility] Address [address], [place] [address] Care Team Providers Care Micro Computer Specialist Name Role Phone [place] Squires MD Primary Care Provider Encounter Details Date Type Department Care Team ([facility] st Contact Info) Description 07/08/2015 Correspondence [facility] Physical Therapy [address] [place] [address] Trudi Raymundo, PT [address] [place] [address] ADDENDUM FOR LETTER OF MEDICAL NECESSITY Social [...] on filedocumented in this encounter Care Teams Micro Computer Specialist Relationship Specialty Start Date End Date [place] Squires MD [address] [facility] [address] PCP - General Family Practice 03/08/16 documented as of this encounter
--- OUTSIDE RECORDS SUMMARY | 2024-03-16 12:25 | XMS_ITS | Encounter Summary ---
Author Name Unknown Organization [facility] Address [address] [address] Care Team Providers Care Powertrain Design Engineer Name Role Phone [place] Squires MD Primary Care Provider [phone] Encounter Details Date Type Department Care Team (Late st Contact Info) Description 05/04/2014 [facility] 401 Physical Medicine 401 [place] [address] May Randle MD [address] [place] [address] LETTER OF MEDICAL NECESSITY FOR A WHEELCHAIR [...] on filedocumented in this encounter Care Teams Powertrain Design Engineer Relationship Specialty Start Date End Date Farnklin Squires MD 100 [facility] [place] [address] PCP - General Family Practice 03/08/16 documented as of this encounter
--- OUTSIDE RECORDS SUMMARY | 2024-03-16 12:25 | XMS_ITS | Encounter Summary ---
Author Name Unknown Organization [facility] Address [address], [place] [address] Care Team Providers Care Bottle Assembler Name Role Phone [place] Squires MD Primary Care Provider Encounter Details Date Type Department Care Team (Late st Contact Info) Description 11/23/2015 Correspondence External to External, [place] [address] LETTER [facility] Social History Tobacco Use Types [...] on filedocumented in this encounter Care Teams Bottle Assembler Relationship Specialty Start Date End Date [place] Squires MD 100 [facility] [place] [address] PCP - General Family Practice 03/08/16 documented as of this encounter
--- OUTSIDE RECORDS SUMMARY | 2024-03-16 12:25 | XMS_ITS | Encounter Summary ---
Author Name Unknown Organization [facility] Address [address] [address] Care Team Providers Care Second Watch Sergeant Name Role Phone [place] Squires MD Primary [...] filedocumented in this encounter Care Teams Second Watch Sergeant Relationship Specialty Start Date End Date [place] Squires MD 100 [facility] [place] [address] PCP - General Family Practice 03/08/16 documented as of this encounter
--- OUTSIDE RECORDS SUMMARY | 2024-03-16 12:25 | XMS_ITS | Encounter Summary ---
Author Name Unknown Organization [facility] Address [address] [place] [address] Care Team Providers Care Mixer Lever Operator Name Role Phone [place] Squires MD Primary Care Provider Encounter Details Date Type Department Care Team (Late st Contact Info) Description 09/07/2014 Correspondence [facility] Radiology [address] [place] [address] Radiology, Provider MRI SAFETY SHEET AND COMPATIBILITY [...] on filedocumented in this encounter Care Teams Mixer Lever Operator Relationship Specialty Start Date End Date [place] Squires MD [address] [place] [address] [place] [address] PCP - General Family Practice 03/08/16 documented as of this encounter
--- OUTSIDE RECORDS SUMMARY | 2024-03-16 12:25 | XMS_ITS | Encounter Summary ---
Author Name Unknown Organization [facility] Address [address] [address] Care Team Providers Care Sagger Preparer Name Role Phone [place] Squires MD Primary Care Provider Encounter Details Date Type Department Care Team (Latest Contact Info) Description 06/04/2014 [facility] 401 Interventional Pain Management 401 [place] [address] Zelalem Cohen, DO [address] [place] [address] MEDICAID PT INFORMATION EMPI RECOVERY Social History [...] on filedocumented in this encounter Care Teams Sagger Preparer Relationship Specialty Start Date End Date [place] Squires MD 100 [facility] [place] [address] PCP - General Family Practice 03/08/16 documented as of this encounter
--- OUTSIDE RECORDS SUMMARY | 2024-03-16 12:25 | XMS_ITS | Encounter Summary ---
Author Name Unknown Organization [facility] Address [address] [place] [address] Care Team Providers Care Crew Attendant Name Role Phone [place] Squires MD Primary Care Provider [phone] Encounter Details Date Type Department Care Team (Late st Contact Info) Description 01/06/2016 Correspondence [facility] Radiology [address] [place] [address] Radiology, Provider MRI SAFETY SHEET AND COMPATIBILITY [...] on filedocumented in this encounter Care Teams Crew Attendant Relationship Specialty Start Date End Date [place] Squires MD [address] [place] [address] [place] [address] PCP - General Family Practice 03/08/16 documented as of this encounter
--- OUTSIDE RECORDS SUMMARY | 2024-03-16 12:25 | XMS_ITS | Encounter Summary ---
Author Name Unknown Organization [facility] Address [address], [place] [address] Care Team Providers Care Brand Sales Manager Name Role Phone [place] Squires MD Primary Care Provider Encounter Details Date Type Department Care Team (Late st Contact Info) Description 12/14/2014 [facility] 401 Physical Medicine 401 [place] [address] May Randle MD [address] [place] [address] DETAILED PRODUCT DESCRIPTION Social History Tobacco Use [...] on filedocumented in this encounter Care Teams Brand Sales Manager Relationship Specialty Start Date End Date [place] Squires MD 100 [facility] [place] [address] PCP - General Family Practice 03/08/16 documented as of this encounter
--- OUTSIDE RECORDS SUMMARY | 2024-03-16 12:25 | XMS_ITS | Encounter Summary ---
Author Name Unknown Organization [facility] Address [address] [address] Care Team Providers Care Broadcast Operations Engineer Name Role Phone [place] Squires MD [...] on filedocumented in this encounter Care Teams Broadcast Operations Engineer Relationship Specialty Start Date End Date [place] Squires MD 100 [facility] [place] [address] PCP - General Family Practice 03/08/16 documented as of this encounter
--- OUTSIDE RECORDS SUMMARY | 2024-03-16 12:25 | XMS_ITS | Encounter Summary ---
Author Name Unknown Organization [facility] Address [address], [place] [address] Care Team Providers Care Inbound Customer Service Representative Name Role Phone [place] Squires MD Primary Care Provider [phone] Encounter Details Date Type Department Care Team (Late st Contact Info) Description 12/16/2014 Correspondence External to External, Provider No address [place] [phone] MEDICARE PLAN OF CARE RECERT Social History [...] on filedocumented in this encounter Care Teams Inbound Customer Service Representative Relationship Specialty Start Date End Date [place] Squires MD 100 [facility] [place] [address] PCP - General Family Practice 03/08/16 documented as of this encounter
--- OUTSIDE RECORDS SUMMARY | 2024-03-16 12:25 | XMS_ITS | Encounter Summary ---
Author Name Unknown Organization [facility] Address [address], [place] [address] Care Team Providers Care Dough Cutting Machine Operator Name Role Phone [place] Squires MD Primary Care Provider [phone] Encounter Details Date Type Department Care Team (Late st Contact Info) Description 08/20/2014 Outside Hospital External to [facility] Social History Tobacco Use Types [...] on filedocumented in this encounter Care Teams Dough Cutting Machine Operator Relationship Specialty Start Date End Date [place] Squires MD 100 [facility] [address] PCP - General Family Practice 03/08/16 documented as of this encounter
--- OUTSIDE RECORDS SUMMARY | 2024-03-16 12:25 | XMS_ITS | Clinical Summary ---
Author Name Unknown Organization [facility] Address [address] [place] [address] Care Team Providers Care Professional Architect Name Role Phone [place] Squires MD Primary Care Provider [phone] Source Comments You are receiving this document as you are listed as the primary care provider,follow-up provider, or the patient has been referred to you for consultation.This is in compliance with the Medicare and[facility] EHR Incentive Program,which states Providers who transition their patient to another setting of careor provider of care or refers their patient to another provider of care shouldprovide summary care record for each transition of care or referral. 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 current use of anticoagulant therapy 0 02/17/2014 [...] Comments Blood Pressure 120/63 01/18/2022 12:59 PM HOSPICE MUSIC THERAPY Pulse 87 01/18/2022 12:59 PM HOSPICE MUSIC THERAPY Temperature 36.3 ??C (97.4 ??F) 01/18/2022 12:59 [...] ( season) 2023 08/06/2021, 01/25/2021, 01/02/2021 Influenza (Season Ended) 07/12/20242 021, 08/19/2020, 08/20/2019, Additional history exists Pneumococcal 65+ [...] this topic Medical Devices Implanted Type Area Hang Gliding Instructor Device Identifier Shelf Expiration Date Model / Serial / Lot [id number] 4ml Tisseel Explanted:([place] ntity not on file) BIOLOGIC N/A: NECK Lynne Fenwall 09/10/2011 [id number] / [id number] / [id number] Description:posterior Cath Intrathecal Indura - [id number] Implanted:Qty: 1 on 05/09/2010 at [facility] DEVICE Right: LUMBAR SPINE [employer] 01/18/2012 8709 / N/A / [id number] Cath Intrathecal Indura - [id number] Implanted:Qty: 1 on 05/29/2010 at [facility] DEVICE [employer] 8709 / / Scr Indira Conic 7.3x80 - [id number] Implanted:Qty: 1 on 03/13/2011 at [facility] DEVICE Right: FEMUR DISTAL [employer] 02.207.28 0 / NONE / NONE Plt Lcp Cndl Rt 4.5x170 6h - [id number] Implanted:Qty: 1 on 03/13/2011 at [facility] DEVICE Right: FEMUR DISTAL [employer] 222.656 / NONE / NONE Description:6 hole 170mm rig ht 4.5mm lcp condylar plate Scr Didier Ss Sftp 4.5x40 - [id number] Implanted:Qty: 1 on 03/13/2011 at [facility] DEVICE Left: FEMUR DISTAL [employer] 214.840 / NONE / NONE Scr Didier Ss Sftp 4.5x50 - [id number] Implanted:Qty: 1 on 03/13/2011 at [facility] DEVICE Left: FEMUR DISTAL [employer] 214.850 / NONE / NONE Scr Indira Lk 5.0x80 - [id number] Implanted:Qty: 2 on 03/13/2011 at [facility] DEVICE Left: FEMUR DISTAL [employer] 02.205.08 0 / NONE / NONE Scr Indira Lk 5.0x85 - [id number] Implanted:Qty: 2 on 03/13/2011 at [facility] DEVICE Left: FEMUR DISTAL [employer] 02.205.08 5 / NONE / NONE Scr Lk Sftp T25 5.0x50 - [id number] Implanted:Qty: 1 on 03/13/2011 at [facility] DEVICE Left: FEMUR DISTAL [employer] 212.219 / NONE / NONE Scr Lk Sftp T25 5.0x60 - [id number] Implanted:Qty: 1 on 03/13/2011 at [facility] DEVICE Left: FEMUR DISTAL [employer] 212.221 / NONE / NONE Scr Indira Conic 7.3x85 - [id number] Implanted:Qty: 1 on 03/13/2011 at [facility] DEVICE Left: FEMUR DISTAL [employer] 02.207.28 5 / NONE / NONE Plt Lcp Cndl Lt 4.5x170 6h - [id number] Implanted:Qty: 1 on 03/13/2011 at [facility] DEVICE Left: FEMUR DISTAL [employer] 222.657 / NONE / NONE Description:6 hole 170mmleng th left 4.5mm lcp condylar plate. Scr Didier Sftp 3.5x60 F-Thrd - [id number] Implanted:Qty: 1 on 03/13/2011 at [facility] DEVICE Left: TIBIA PROXIMAL [employer] 204.860 / NONE / NONE Scr Star Lk Sftp 3.5x32 - [id number] Implanted:Qty: 1 on 03/13/2011 at [facility] DEVICE Left: TIBIA PROXIMAL [employer] 212.112 / NONE / NONE Scr Star Lk Sftp 3.5x55 - [id number] Implanted:Qty: 2 on 03/13/2011 at [facility] DEVICE Left: TIBIA PROXIMAL [employer] 212.123 / NONE / NONE Scr Star Lk Sftp 3.5x60 - [id number] Implanted:Qty: 2 on 03/13/2011 at [facility] DEVICE Left: TIBIA PROXIMAL [employer] 212.124 / NONE / NONE Plt Lcp M/Prox Lt 3.5x94 4h - [id number] Implanted:Qty: 1 on 03/13/2011 at [facility] DEVICE Left: TIBIA PROXIMAL [employer] 239.955 / NONE / NONE Scr Didier Ss Sftp 4.5x36 - [id number] Implanted:Qty: 1 on 03/13/2011 at [facility] DEVICE Right: FEMUR DISTAL [employer] 214.836 / NONE / NONE Scr Didier Ss Sftp 4.5x44 - [id number] Implanted:Qty: 1 on 03/13/2011 at [facility] DEVICE Right: FEMUR DISTAL [employer] 214.844 / NONE / NONE Scr Indira Lk 5.0x75 - [id number] Implanted:Qty: 1 on 03/13/2011 at [facility] DEVICE Right: FEMUR DISTAL [employer] 02.205.07 5 / NONE / NONE Scr Indira Lk 5.0x85 - [id number] Implanted:Qty: 2 on 03/13/2011 at [facility] DEVICE Right: FEMUR DISTAL [employer] 02.205.08 5 / NONE / NONE Scr Lk Sftp T25 5.0x44 - [id number] Implanted:Qty: 1 on 03/13/2011 at [facility] DEVICE Right: FEMUR DISTAL [employer] 212.216 / NONE / NONE Scr Lk Sftp T25 5.0x65 - [id number] Implanted:Qty: 1 on 03/13/2011 at [facility] DEVICE Right: FEMUR DISTAL [employer] 212.222 / NONE / NONE Plt Lp T Ti Str 4h - [id number] Implanted:Qty: 3 on 07/28/2014 by Cooper Shelley MD at [facility] DEVICE Right: SKULL [employer] 421.504 / / Scr Matrix Sfdr 4mm - [id number] Implanted:Qty: 6 on 07/28/2014 by Cooper Shelley MD at [facility] DEVICE Right: SKULL [employer] 04.503.10 4.01 / / Lead Linear 3-4 8 Contact 50cm - [id number] Implanted:Qty: 1 on 03/08/2016 by Zelalem Cohen DO at [facility] DEVICE N/A: OTHER-SEE DESCRIPTION [facility] 09/10/2017 [id number] 2500 / / [id number] Description:LUMBAR Lead Linear 3-4 8 Contact 50cm - [id number] Implanted:Qty: 1 on 03/08/2016 by Zelalem Cohen DO at [facility] DEVICE N/A: OTHER-SEE DESCRIPTION [facility] 09/10/2017 [id number] 2500 / / [id number] Description:LUMBAR Lead Linear 3-4 8 Contact 50cm - [id number] Implanted:Qty: 1 on 03/08/2016 by Zelalem Cohen DO at [facility] DEVICE N/A: OTHER-SEE DESCRIPTION [facility] 09/10/2017 [id number] 2500 / / [id number] Description:LUMBAR Lead Linear 3-4 8 Contact 50cm - [id number] Implanted:Qty: 1 on 03/08/2016 by Zelalem Cohen DO at [facility] DEVICE N/A: OTHER-SEE DESCRIPTION [facility] 09/10/2017 [id number] 2500 / / [id number] Description:LUMBAR Lead Linear 3-4 8 Contact 50cm - [id number] Implanted:Qty: 1 on 05/24/2016 by Zelalem Cohen DO at [facility] DEVICE N/A: SPINE LUMBAR POSTERIOR [facility] 01/31/2018 [id number] 2500 / [id number] / Lead Linear 3-4 8 Contact 50cm - [id number] Implanted:Qty: 1 on 05/24/2016 by Zelalem Cohen DO at [facility] DEVICE N/A: SPINE LUMBAR POSTERIOR [facility] 04/26/2018 [id number] 2500 / [id number] / Lead Linear 3-4 8 Contact 50cm - [id number] Implanted:Qty: 1 on 05/24/2016 by Zelalem Cohen DO at [facility] DEVICE N/A: SPINE LUMBAR POSTERIOR [facility] 04/26/2018 [id number] 2500 / [id number] / Lead Linear 3-4 8 Contact 50cm - [id number] Implanted:Qty: 1 on 05/24/2016 by Zelalem Cohen DO at [facility] DEVICE N/A: SPINE LUMBAR POSTERIOR [facility] 04/26/2018 [id number] 2500 / [id number] / Generator Pulse Spectra - [id number] Implanted:Qty: 1 on 05/24/2016 by Zelalem Cohen DO at [facility] DEVICE N/A: SPINE LUMBAR POSTERIOR [facility] 05/08/2018 [id number] / [id number] / [id number] [place] [employer] - [id number] Implanted:Qty: 1 on 05/24/2016 by Zelalem Cohen DO at [facility] DEVICE N/A: SPINE LUMBAR POSTERIOR [facility] 05/02/2018 [id number] 60 / / [id number] [place] [employer] - [id number] Implanted:Qty: 1 on 05/24/2016 by Zelalem Cohen DO at [facility] DEVICE N/A: SPINE LUMBAR POSTERIOR [facility] 02/28/2018 [id number] 60 / / [id number] Procedures Procedure Name Priority Date/Time Associated Diagnosis Comments CREATININE/GFR, WB POC Routine 01/06/2016 12:04 PM HOSPICE MUSIC THERAPY Back pain, 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 HGB A1C Routine 07/29/2014 3:19 AM CDT from Last 3 Months or Most Recently Relevant to Health Maintenance Results * CREATININE/GFR, WB POC (01/06/2016 12:04 PM HOSPICE MUSIC THERAPY) Creat Whole Blood 0.9 0.66 - 1.25 mg/dl [facility] GFR, Estimated >60 >60 ml/min/1.7 3m2 [facility] GFR, Est., If Black >60 >60 ml/min/1.7 3m2 [facility] 01/06/2016 12:0 4 PM HOSPICE MUSIC THERAPY 01/06/2016 12:21 PM HOSPICE MUSIC THERAPY Trae Blair MD LAB[facility] [phone] * (ABNORMAL) HGB A1C (07/29/2014 3:19 AM CDT) Hgb A1c 6.4(H) 4.3 - 6.1 % [facility] Comment: The usual A1C goal for people with diabetes, age 18-75, is <8.0%. Physicians may recommend a higher or lower goal for specific individuals. 07/29/2014 3:19 AM CDT 07/29/2014 3:22 AM CDT [facility] - 07/29/2014 12:53 PM CDT Performed at [facility], [address] [address] [place] Wei PA-C LAB_[address] [address] from Last 3 Months or Most Recently [...] 5:44 PM 07/28/2014 6:50 PM Care Teams Professional Architect Relationship Specialty Start Date End Date [place] Squires MD [address] [facility] [address] [place] [address] PCP - General Family Practice 03/08/16
--- OUTSIDE RECORDS SUMMARY | 2024-03-16 12:25 | XMS_ITS | Encounter Summary ---
Author Name Unknown Organization [facility] Address [address] [place] [address] Care Team Providers Care Primary Care Pediatrician Name Role Phone Franklin Squires MD Primary Care Provider Encounter Details Date Type Department Care Team (Late st Contact Info) Description 06/07/2015 Correspondence [facility] Radiology [address] [place] [id number] Radiology, Provider MRI SAFETY SHEET AND COMPATIBILITY [...] on filedocumented in this encounter Care Teams Primary Care Pediatrician Relationship Specialty Start Date End Date Franklin Squires MD [address] [place] [address] [place] [id number] PCP - General Family Practice 03/08/16 documented as of this encounter
--- OUTSIDE RECORDS SUMMARY | 2024-03-16 12:25 | XMS_ITS | Clinical Summary ---
Author Name Unknown Organization [facility] Address [place], [place] [address] Care Team Providers Care Laborer Cutting Tool Name Role Phone Zelalem Cohen MD Unavailable [phone] May Randle MD Unavailable [phone] Franklin Squires MD Primary Care Provider Fred Craft Unavailable [phone] Diane Charles MD Unavailable [phone] Julia Ware RN Unavailable [phone] Allergies Active Allergy Reactions Criticality Noted Date [...] bedIndications:Non-heal ing surgical wound, subsequent encounter Drive ACTON 8 inch low loss mattress and 1/2 rails. Semi-electric bed. Length of need 6 weeks. Bed poker manager:no 1 unit 018 Active acetaminophen (TYLENOL EXTRA [...] 60mm, Cut-to-Fit 01/16 - 2 11/18. Item #[id number]. 1 Each 11 021 Active furosemide (LASIX) [...] the evening OR as directed 024 Active LORazepam (ATIVAN) 0.5 mg tabIndications:Parapleg ia (HC) TAKE ONE TABLET BY MOUTH TWICE A DAY AND TAKE TWO TABLETS BY MOUTH AT BEDTIME 120 Tablet 2 Active oxyCODONE 10 mg tabletIndications:Chron ic pain syndrome TAKE 1 TABLET BY MOUTH EVERY 6 HOURS 120 Tablet 024 Active LORazepam (ATIVAN) 0.5 mg tabIndications:Parapleg ia [...] Date Resolved Date Soft tissue infection 10/22/20232023 jail current use of anticoagulant 06/20/2023 01/08/2024 Cellulitis of scrotum 05/08/20232022 UTI (urinary tract infection) 05/08/2023 06/20/2023 Quadriplegia, unspecified 10/23/2022 Continuous opioid dependence 07/01/2022 08/20/2022 Urinary tract infection asso ciated with indwelling urethral catheter 10/05/2021 06/20/2023 Hypertensive urgency 10/04/2021 023 Type 2 diabetes mellitus, wi thout long-term current use of insulin 01/06/2021 02/14/2024 [...] chronic back pain. Neurogenic bladder, NOS 11/04/2011 0605/2016 Peripheral edema 06/09/2010 09/25/2016 Deep phlebothrombosis, antep artum, with delivery 04/16/2007 10/01/2007 Overview: S/P IVC Filter bottle hop (current) use of anticoagulants 02/19/2007 09/27/2008 Depressive disorder, not elsewhere classified 02/14/20 07 01/15/2018 Abnormality of gait 12/24/2006 09/27/20 08 Urinary tract infection, site not specified 12/24/2006 01/15/2018 BENIGN ESSENTIAL HYPERTENSION 12/24/2006 04/17/2016 Overview: borderline Necrotizing fasciitis 2018 Type 2 diabetes mellitus Encounters Date Type Department Care Team Description 03/13/2024 2:10 PM CDT Orders Only [address] [phone] Lab, [facility] Lab 03/13/2024 Travel 03/10/[address] [phone] Franklin Squires MD Form (Home Health Certification and Plan of Care. ) 03/10/[address] [phone] Franklin Squires MD Form (60 day summary report. SNV 2x/wk for wound care.) 03/05/2024 Anticoagulation (warfarin) [address] [phone] , [facility] Anticoagulation (Acelis) 03/02/[address] [phone] Gabrielle Prado PA Refill Request (Oxycodone) 03/02/[address] [phone] Franklin Squires MD Refill Request (Lorazepam) 02/24/2024 Patient Outreach [facility] - Advanced Care Team [address] [place] [address] Archana Wright, mixed livestock farm worker Management (ACO outreach engagement ) 02/24/[address] [phone] Franklin Squires MD Form (Physician Orders. Medication order: Lorazapam 0.5 mg; oral tablet. Amoxicillin- clavulanate 875mg) 02/24/[address] [phone] Franklin Squires MD Refill Request (LORazepam (ATIVAN) 0.5 mg tab) 02/20/2024 1:30 PM CDT Office Visit [address] [phone] Franklin Squires MD Hospital F/U (02/15/24) 02/20/2024 Anticoagulation (warfarin) [address] [phone] 1, [facility] Anticoagulation 02/20/2024 Travel 02/18/2024 Anticoagulation (warfarin) [address] [phone] 1, [facility] Anticoagulation (acelis) 02/18/2024 Patient Outreach [address] [phone] Archana Stein RN Primary RN Care Management (Hospital DC:02/17/24/LACE:47/Pne [facility]); Hospital F/U 02/17/[address] [phone] Franklin Squires MD Form (Service Order: Hold. Acute care hospitalization for pneumonia. Hold [facility] services pending discharge plans. Effective: 02/15/2024) 02/15/2024 4:34 PM CDT - 02/17/2024 2:45 PM CDT Hospital Encounter [facility] [address] [address] [facility] Internal FogeGilson MD Khakbaznejad, Alireza, MD Pneumonia due to infectious organism, unspecified laterality, unspecified part of lung (Primary Dx); History of DVT (deep vein thrombosis); Pressure injury of right buttock, stage 1 Discharge Disposition: Home Self Care 02/15/2024 Travel 02/15/2024 Refill [facility] [address] [facility] [place] [address], [facility] Refill Request (Warfarin) 02/14/2024 3:10 PM CDT - 02/15/2024 2:45 PM CDT Hospital Encounter [facility] [address] [place] [address] Quan Corbett, ROXY Ramírez, MD Terence Bruno, Todd Glass, DO Cintron, George Izaguirre, Malini Nayak, CLEMENT Leukocytosis, unspecified type (Primary Dx); Fever, unspecified fever cause; Chills; Tachycardia; Pulmonary infiltrate; Elevated C-reactive protein (CRP); Pressure injury of deep tissue of left buttock Discharge Disposition: Critical Access Hospital 02/14/2024 Travel 02/05/2024 Anticoagulation (warfarin) [address] [place] [address] 1, [facility] Anticoagulation (Acelis) 01/28/2024 Refill [facility] [address] [place] [phone] Franklin Squires MD Refill Request (Oxycodone) 01/22/[address] [phone] Franklin Squires MD Form (Standard Written Order: Rehab Accessories./Cushion, Quadtro Select HI PRO 20x20 or 11x11 Cell) 01/22/2024 Telephone [facility] [address] [facility] [place] [address] Franklin Squires MD Form (Standard Written Order: Repairs/Battery, M34 Gel 60AH C300 60 AMP Hours use 8AMP Parking Enforcement Specialist) 01/22/2024 Anticoagulation (warfarin) [address] [place] [address] 1, [facility] Anticoagulation (Acelis) 01/16/[address] [phone] Franklin Squires MD Refill Request (Bupropion) 01/09/[address] [phone] Franklin Squires MD Form (Home Health Certification and Plan of Care.) 01/08/[address] [phone] Franklin Squires MD Form ([facility] 60 Day Summary Report) 01/08/2024 Anticoagulation (warfarin) [address] [place] [address], [facility] Anticoagulation (acelis) 01/01/2024 Anticoagulation (warfarin) [address] [place] [address] 1, [facility] Anticoagulation (Acelis) 12/29/[address] [phone] Franklin Squires MD Refill Request (Oxycodone) 12/26/[address] [phone] Franklin Squires MD Form 12/26/[address] [place] [address] Franklin Squires MD Anticoagulation (Question/review) 12/25/2023 Anticoagulation (warfarin) [address] [place] [address] 1, [facility] Anticoagulation (Acelis) 12/19/2023 1:50 PM INSTRUMENT AND CONTROL TECHNICIAN Office Visit [address] [place] [address] Franklin Squires MD Recheck 12/19/[address] [place] [address] Franklin Squires MD Refill Request (Dakin's Solution) 12/19/2023 Travel 12/18/2023 Anticoagulation (warfarin) [address] [place] [address] 1, [facility] Anticoagulation (Acelis) from Last 3 Months Immunizations Name Administration Dates Next Due COVID-19 vaccine (Colibri Heart Valve-Bio NTech 30mcg/0.3mL) 12YO+ BIVALENT PF, MDV 10/22/2022 COVID-19 vaccine (Colibri Heart Valve-Bio NTech 30mcg/0.3mL) PF, MDV 01/25/2021,01/02/2021 Influenza A [...] Description 04/03/2024 2:30 PM CDT Office Visit [facility] [address] [place] [phone] Franklin Squires MD [address] [place] [address] Health Maintenance Due Date Last Done Comments [...] Procedure Name Priority Date/Time Associated Diagnosis Comments URINALYSIS MICROSCOPIC STAT 03/13/2024 11:04 AM CDT Suprapubic catheter (HC) Fever, unspecified fever cause URINE CULTURE Routine 03/13/2024 11:04 AM CDT Suprapubic catheter (HC) Fever, unspecified fever cause UA W/ SEDIMENT EXAM REFLEXED PER CRITERIA STAT 03/13/2024 11:04 AM CDT Suprapubic catheter (HC) Fever, unspecified fever cause HOME MONITOR AC Routine 03/05/2024 12:00 AM [...] HOME MONITOR AC Routine 01/08/2024 12:00 AM INSTRUMENT AND CONTROL TECHNICIAN HOME MONITOR AC Routine 01/01/2024 12:00 AM INSTRUMENT AND CONTROL TECHNICIAN HOME MONITOR AC Routine 12/25/2023 12:00 AM INSTRUMENT AND CONTROL TECHNICIAN HOME MONITOR AC Routine 12/18/2023 12:00 AM INSTRUMENT AND CONTROL TECHNICIAN from Last 3 Months Results * (ABNORMAL) URINALYSIS MICROSCOPIC (03/13/2024 11:04 AM CDT) Only the most recent of2 resultswithin the time period is included. RBC 0-2 0-2, None Seen /HPF 03/13/2024 2:26 PM CDT [facility] WBC 6-10(A) 0-2, 3-5, None Seen /HPF 03/13/2024 2:26 PM CDT [facility] BACTERIA Few None Seen, Rare, Few Bacteria/ HPF 03/13/2024 2:26 PM CDT [facility] EPITHELIAL CELLS Few None Seen, Few Epi/HPF 03/13/2024 2:26 PM CDT [facility] WHITE CELL CLUMPS Present(A) (none) 03/13/2024 2:26 PM CDT [facility] Urine URINE SPECIMEN / Unknown Non-Blood / Unknown 03/13/2024 11:04 AM CDT 03/13/2024 1:37 PM CDT Franklin Squires MD URINE Performing Organization Address [facility] Co de Phone Number [facility] [address] [place] [address] * (ABNORMAL) URINE CULTURE (03/13/2024 11:04 AM CDT) Only the most recent of2 resultswithin the time period is included. CULTURE RESULT(A) 03/16/2024 9:13 AM CDT [facility]AL LABORATORY CULTURE >100,000 CFU/mL Pseudomonas aeruginosa 03/16/2024 9:13 AM CDT [facility]AL LAB[facility]AT[facility] CULTURE 50,000-100,000 CFU/mL Staphylococcus aureus 03/16/2024 9:13 AM CDT [facility]-C [facility]AL LABORAT[facility] CULTURE 10,000-50,000 CFU/mL Enterobacter cloacae complex 03/16/2024 9:13 AM CDT [facility] Comment: May develop resistance during prolonged therapy with 3rd-generation cephalosporins as a result of derepression of AmpC beta-lactamase. ??Therefore, isolates that are initially susceptible may become resistant within 3 to 4 days after initiation of therapy. ??Testing repeat isolates may be warranted. Oral cephalosporins are also not recommended. Urine URINE SPECIMEN / Unknown Non-Blood / Unknown 03/13/2024 11:04 AM CDT 03/13/2024 1:37 PM CDT Narrative [facility]-C[facility]AL LAB[facility]ATORY - 03/16/2024 9:13 AM CDT May represent colonization. No further workup pending. Franklin Squires MD MICROBIOLOGY Performing Organization Address [facility]/ZIP Co de Phone Number [facility] [address] [place] [address], [place] * (ABNORMAL) UA W/ SEDIMENT EXAM REFLEXED PER CRITERIA (03/13/2024 11:04 AM CDT) Only the most recent of2 resultswithin the time period is included. COLOR Yellow Yellow Color 03/13/2024 2:24 PM [facility] CLARITY Clear Clear Clarity 03/13/2024 2:24 PM [facility] SPECIFIC GRAVITY,URINE <=1.005(A) 1.010, 1.015, 1.020, 1.025 03/13/2024 2:24 PM [facility] PH,URINE 6.5 6.0, 7.0, 8.0, 5.5, 6.5, 7.5, 8.5 03/13/2024 2:24 PM [facility] UROBILINOGEN, QUALITATIVE Normal Normal EU/dl 03/13/2024 2:24 PM [facility] PROTEIN, URINE Negative Negative mg/dL 03/13/2024 2:24 PM [facility] GLUCOSE, URINE Negative Negative mg/dL 03/13/2024 2:24 PM [facility] KETONES,URINE Negative Negative mg/dL 03/13/2024 2:24 PM [facility] BILIRUBIN,URI NE Negative Negative 03/13/2024 2:24 PM [facility] OCCULT BLOOD,URINE Moderate(A) Negative 03/13/2024 2:24 PM [facility] NITRITE Negative Negative 03/13/2024 2:24 PM [facility] LEUKOCYTE ESTERASE Moderate(A) Negative 03/13/2024 2:24 PM [facility] Urine URINE SPECIMEN / Unknown Non-Blood / Unknown 03/13/2024 11:04 AM CDT 03/13/2024 1:37 PM CDT Franklin Squires MD URINE [facility] [address] [place] [address] * HOME MONITOR AC (03/05/2024 12:00 AM CDT) Only the most recent of8 resultswithin the time period is included. PATIENT REPORTED HOME INR 2.1 2.00 - 3.00 ALERE HOME MONITORING 03/05/2024 Franklin Squires MD OTHER ALE HOME MONITORING [address] [place] [address] * POTASSIUM (02/20/2024 2:15 PM CDT) Only the most recent of2 resultswithin the time period is included. POTASSIUM 4.3 3.5 - 5.1 mmol/L 02/20/2024 4:02 PM CDT [facility] Blood BLOOD SPECIMEN / Unknown Venipuncture / Unknown 02/20/2024 2:15 PM CDT 02/20/2024 3:06 PM CDT Franklin Squires MD CHEMISTRY Performing Organization Address [facility]/ZIP Co de Phone Number [facility] [address] [place] [address] * (ABNORMAL) PROTIME-INR (02/20/2024 2:15 PM CDT) Only the most recent of5 resultswithin the time period is included. INR 1.9(H) <1.3 02/20/2024 2:38 PM CDT [facility] PROTIME 21.2(H) 10.3 - 12.3 sec 02/20/2024 2:38 PM CDT [facility] Blood BLOOD SPECIMEN / Unknown Venipuncture / Unknown 02/20/2024 2:15 PM CDT 02/20/2024 2:15 PM CDT Narrative [facility] - 02/20/2024 2:38 PM CDT [...] seconds if the patient is on UFH. Frnaklin Squires MD HEMATOLOGY [facility] [address] [place], [place] [id number] * (ABNORMAL) CBC WITH AUTO DIFFERENTIAL (02/17/2024 5:11 AM CDT) Only the most recent of2 resultswithin the time period is included. WHITE BLOOD COUNT 7.0 4.5 - 11.0 thou/cu mm 02/17/2024 5:49 AM [facility] RED BLOOD COUNT 4.22(L) 4.30 - 5.90 mil/cu mm 02/17/2024 5:49 AM [facility] HEMOGLOBIN 10.9(L) 13.5 - 17.5 g/dL 02/17/2024 5:49 AM [facility] HEMATOCRIT 33.8(L) 37.0 - 53.0 % 02/17/2024 5:49 AM [facility] MCV 80 80 - 100 fL 02/17/2024 5:49 AM [facility] MCH 25.8(L) 26.0 - 34.0 pg 02/17/2024 5:49 AM [facility] MCHC 32.2 32.0 - 36.0 g/dL 02/17/2024 5:49 AM [facility] RDW 15.9(H) 11.5 - 15.5 % 02/17/2024 5:49 AM [facility] PLATELET COUNT 239 140 - 440 thou/cu mm 02/17/2024 5:49 AM [facility] MPV 9.6 6.5 - 11.0 fL 02/17/2024 5:49 AM [facility] NRBC 0.0 % 02/17/2024 5:49 AM [facility] ABS NRBC 0.0 thou /cu mm 02/17/2024 5:49 AM [facility] % NEUT 54.3 % 02/17/2024 5:49 AM [facility] % LYMPH 27.2 % 02/17/2024 5:49 AM [facility] % MONO 11.7 % 02/17/2024 5:49 AM [facility] % EOS 5.7 % 02/17/2024 5:49 AM [facility] % BASO 0.7 % 02/17/2024 5:49 AM [facility] % IMMATURE GRAN (METAS,MYELOS,LA OS) 0.4 % 02/17/2024 5:49 AM [facility] ABSOLUTE NEUTROPHILS 3.8 1.7 - 7.0 thou/cu mm 02/17/2024 5:49 AM [facility] ABSOLUTE LYMPHOCYTES 1.9 0.9 - 2.9 thou/cu mm 02/17/2024 5:49 AM [facility] ABSOLUTE MONOCYTES 0.8 <0.9 thou/cu mm 02/17/2024 5:49 AM [facility] ABSOLUTE EOSINOPHILS 0.4 <0.5 thou/cu mm 02/17/2024 5:49 AM [facility] ABSOLUTE BASOPHILS 0.1 <0.3 thou/cu mm 02/17/2024 5:49 AM [facility] ABSOLUTE IMMATURE GRANULOCYTES(MET ,MYELOS,PROS) 0.0 <0.3 thou/cu mm 02/17/2024 5:49 AM [facility] Blood BLOOD SPECIMEN / Unknown Butterfly / Unknown 02/17/2024 5:11 AM CDT 02/17/2024 5:45 AM T John Ludwig MD HEMATOLOGY [facility] INTERNAL ZIP [address] [address] [facility] [place] [address] * SODIUM (02/17/2024 5:11 AM CDT) SODIUM 140 136 - 145 mmol/L 02/17/2024 6:14 AM CDT [facility] Blood BLOOD SPECIMEN / Unknown Butterfly / Unknown 02/17/2024 5:11 AM CDT 02/17/2024 5:44 AM CDT John Ludwig MD CHEMISTRY [facility] INTERNAL ZIP [address] [address] [place] [facility] [place] [address] * (ABNORMAL) CREATININE (02/17/2024 5:11 AM CDT) eGFR >90 >90 mL/min/1.7 3m2 02/17/2024 6:14 AM CDT [facility] Comment:As of 2022, eG FR is calculated by the CKD-EPI creatinine equation without race adjustment. ??eGFR can be influenced by muscle mass, exercise, and diet. ??The reported eGFR is an estimation only and is only applicable if the renal function is stable. CREATININE 0.56(L) 0.70 - 1.20 mg/dL 02/17/2024 6:14 AM CDT [facility] Blood BLOOD SPECIMEN / Unknown Butterfly / Unknown 02/17/2024 5:11 AM CDT 02/17/2024 5:44 AM CDT John Ludwig MD CHEMISTRY [facility] INTERNAL ZIP [address] [address] [place] [address] * MAGNESIUM (02/17/2024 5:11 AM CDT) MAGNESIUM 2.0 1.6 - 2.4 mg/dL 02/17/2024 7:44 AM CDT [facility] Blood BLOOD SPECIMEN / Unknown Butterfly / Unknown 02/17/2024 5:11 AM CDT 02/17/2024 5:44 AM CDT John Ludwig MD CHEMISTRY Performing Organization Address City/[facility]/ZIP Co de Phone Number [facility] INTERNAL ZIP [phone] [facility] [address] [place] [address] * (ABNORMAL) GLUCOSE METER (02/16/2024 11:41 AM CDT) Only the most recent of6 resultswithin the time period is included. GLUCOSE METER 129(H) 65 - 100 mg/dL 02/16/2024 12:02 PM CDT [facility] Blood BLOOD SPECIMEN / Unknown 02/16/2024 11:41 AM CDT 02/16/2024 12:02 PM CDT John Ludwig MD CHEMISTRY Performing Organization Address [facility] Co or Phone Number [facility] INTERNAL ZIP [phone] [facility] [place] [address] * LEGIONELLA AND PNEUMOCOCCAL URINE ANTIGEN (02/15/2024 10:25 AM CDT) STREP PNEUMO ANTIGEN Negative 02/15/2024 3:46 PM CDT [facility] Comment:Presumptive negative for pneumococcal pneumonia, suggesting no current or recent pneumococcal infection. Infection due to S. pneumoniae cannot be ruled out since the antigen present in the sample may be below the detection limit of the test. LEGIONELLA ANTIGEN Negative 02/15/2024 3:46 PM CDT [facility] Comment:Negative for L.pneum ophila serogroup 1 [...] 10:30 AM CDT James Ramírez MD MICROBIOLOGY [facility] [address] [place] [address], * (ABNORMAL) WHITE BLOOD COUNT (02/15/2024 5:54 AM CDT) WHITE BLOOD COUNT 11.7(H) 4.5 - 11.0 thou/cu mm 02/15/2024 7:16 AM CDT [facility] Blood BLOOD SPECIMEN / Unknown Venipuncture / Unknown 02/15/2024 5:54 AM CDT 02/15/2024 7:09 AM CDT James Ramírez MD HEMATOLOGY Performing Organization Address [facility]/ZIP Co de Phone Number [facility] [address] [place] [address] * CT ABDOMEN PELVIS WO (02/14/2024 8:12 [...] of2 resultswithin the time period is included. [facility] TROPONIN T HS 35(H) 6-15 ng/L ng/L 02/14/2024 8:12 PM CDT [facility] Blood BLOOD SPECIMEN / Unknown Venipuncture / Unknown 02/14/2024 7:49 PM CDT 02/14/2024 7:53 PM CDT Quan RAMSEY CHEMISTRY [facility] [address] [place] [address] * (ABNORMAL) TROPONIN T (HS) ACUTE W/2HR REFLEX (02/14/2024 5:35 PM CDT) [facility] TROPONIN T HS 33(H) 6-15 ng/L ng/L 02/14/2024 6:42 PM CDT [facility] Blood BLOOD SPECIMEN / Unknown Venipuncture / Unknown 02/14/2024 5:35 PM CDT 02/14/2024 5:38 PM CDT Narrative [facility] - 02/14/2024 6:42 PM CDT [...] population. Quan RAMSEY CHEMISTRY Performing Organization Address City/State/[facility] Co de Phone Number [facility] [address] [place] [address] * XR CHEST 1 VIEW PORTABLE (02/14/2024 [...] CULTURE No Growth. 02/20/2024 5:27 AM CDT [facility] Blood BLOOD SPECIMEN / Unknown Butterfly / Unknown 02/14/2024 3:58 PM CDT 02/14/2024 4:02 PM CDT Quan RAMSEY MICROBIOLOG Y [facility] [address] [place] [address] * LACTATE VENOUS (02/14/2024 3:50 PM CDT) LACTATE,VENOUS 1.4 0.5 - 2.0 mmol/L 02/14/2024 4:22 PM CDT [facility] Blood BLOOD SPECIMEN / Unknown Butterfly / Unknown 02/14/2024 3:50 PM CDT 02/14/2024 4:02 PM CDT Quan RAMSEY CHEMISTRY [facility] [address] [place] [address] * PROCALCITONIN (02/14/2024 3:50 PM CDT) PROCALCITONIN 0.10 ng/ml 02/14/2024 5:09 PM CDT [facility] Blood BLOOD SPECIMEN / Unknown Butterfly / Unknown 02/14/2024 3:50 PM CDT 02/14/2024 4:39 PM CDT Narrative [facility] - 02/14/2024 5:09 PM CDT [...] Quan RAMSEY SEND OUTS Performing Organization Address [facility] Co de Phone Number [facility] [address] [place] [address] * (ABNORMAL) C-REACTIVE PROTEIN (02/14/2024 3:50 PM CDT) [facility] C-REACTIVE PROTEIN 10.9(H) <0.5 mg/dL 02/14/2024 5:09 PM CDT [facility] Blood BLOOD SPECIMEN / Unknown Butterfly / Unknown 02/14/2024 3:50 PM CDT 02/14/2024 4:02 PM CDT Quan RAMSEY CHEMISTRY Performing Organization Address [facility]/ZIP Co de Phone Number [facility] [address] [place], [place] [id number] * (ABNORMAL) COMP METABOLIC PANEL (02/14/2024 3:50 PM CDT) Pathologist [facility] SODIUM 134(L) 136 - 145 mmol/L 02/14/2024 4:24 PM CDT [facility] POTASSIUM 4.3 3.5 - 5.1 mmol/L 02/14/2024 4:24 PM [facility] CHLORIDE 96(L) 98 - 107 mmol/L 02/14/2024 4:24 PM [facility] CO2,TOTAL 25 22 - 29 mmol/L 02/14/2024 4:24 PM [facility] ANION GAP 13 5 - 18 02/14/2024 4:24 PM [facility] GLUCOSE 118(H) 70 - 99 mg/dL 02/14/2024 4:24 PM [facility] CALCIUM 9.4 8.8 - 10.2 mg/dL 02/14/2024 4:24 PM [facility] BUN 15 8 - 23 mg/dL 02/14/2024 4:24 PM [facility] CREATININE 0.60(L) 0.70 - 1.20 mg/dL 02/14/2024 4:24 PM [facility] BUN/CREAT RATIO 25(H) 10 - 20 4:24 PM [facility] eGFR >90 >90 mL/min/1.7 3m2 02/14/2024 4:24 PM [facility] Comment:As of 2022, eG FR is calculated by the CKD-EPI creatinine equation without race adjustment. ??eGFR can be influenced by muscle mass, exercise, and diet. ??The reported eGFR is an estimation only and is only applicable if the renal function is stable. ALBUMIN 4.1 4.0 - 4.9 g/dL 02/14/2024 4:24 PM [facility] PROTEIN,TOTAL 7.8 6.0 - 8.0 g/dL 02/14/2024 4:24 PM [facility] BILIRUBIN,TOTAL 0.6 0.0 - 1.2 mg/dL 02/14/2024 4:24 PM [facility] ALK PHOSPHATASE 117 40 - 129 IU/L 02/14/2024 4:24 PM [facility] ALT (SGPT) 47 10 - 50 IU/L 02/14/2024 4:24 PM [facility] AST (SGOT) 42 10 - 50 IU/L 02/14/2024 4:24 PM CDT [facility] Blood BLOOD SPECIMEN / Unknown Butterfly / Unknown 02/14/2024 3:50 PM CDT 02/14/2024 4:02 PM CDT Quan RAMSEY CHEMISTRY [facility] [address] [place] [address] from Last 3 Months Additional Health Concerns [...] 12 months since positive culture): resides in acute/signals collection technician care, receiving hemodialysis, has chronic open wounds/skin damage, has long-term percutaneous indwelling medical devices Exclusions for nares collection (if <12 months since positive culture) include all of the previous exclusions plus patients on antibiotics 7 days prior to collection 03/13/2018 2023 Advance Directives Documents on File Type Date Recorded Patient Chart Computer Expl anation Healthcare Directive 05/09/2023 023 Healthcare [...] Code Status Discussion: Reviewed Preferences Care Teams Laborer Cutting Tool Relationship Specialty Start Date End Date Franklin Squires MD [address] [place] [address] PCP - General Family Practice 10/18/15 Zelalem Cohen MD Physical Therapist 03/13/12 May Randle MD Physical Medicine and Rehabilitation 03/13/12 Luana, FAUSTINO Krueger [address] [place] [address] Taper And Floater 05/03/17 Diane Charles MD [address] [place] [address] Surgery - Urology 01/17/23 Julia Ware, RN [address] [place] [address] Registered Nurse 07/17/23
--- OUTSIDE RECORDS SUMMARY | 2024-03-16 12:25 | XMS_ITS | Encounter Summary ---
Author Name Unknown Organization [facility] Address [address], [place] [address] Care Team Providers Care Back Feeder Plywood Layup Line Name Role Phone Franklin Squires MD Primary Care Provider [phone] Encounter Details Date Type Department Care Team ([facility] st Contact Info) Description 02/09/2016 [facility] 401 NeuroSurgery 401 [facility]. [place], [place] [id number] Jodi Aguila PA-C [address] [place] [address] PATIENT LIFT PRESCRIPTION Social History Tobacco Use [...] filedocumented in this encounter Care Teams Back Feeder Plywood Layup Line Relationship Specialty Start Date End Date Franklin Squires MD 100 [facility] [place] [address] PCP - General Family Practice 03/08/16 documented as of this encounter
--- OUTSIDE RECORDS SUMMARY | 2024-03-16 12:25 | XMS_ITS | Encounter Summary ---
Author Name Unknown Organization [facility] Address [address], [place] [address] Care Team Providers Care Pumping Supervisor Name Role Phone Franklin Squires MD Primary Care Provider Encounter Details Date Type Department Care Team (Late st Contact Info) Description 08/22/2014 Outside Hospital External to [facility] SUMMARY Social History Tobacco Use [...] on filedocumented in this encounter Care Teams Pumping Supervisor Relationship Specialty Start Date End Date Franklin Squires MD 100 [facility] [place] [address] PCP - General Family Practice 03/08/16 documented as of this encounter
--- OUTSIDE RECORDS SUMMARY | 2024-03-16 12:25 | XMS_ITS ---
Author Name Unknown Organization [facility] Address [address] [address] Care Team Providers Care Face Hardener Name Role Phone Franklin Squires MD Primary Care Provider [phone] Active Problems Problem Noted Date Diagnosed Date [...] for this patient in [facility]. Treatments may have been administered in another system. Resolved Problems Problem Noted Date Diagnosed Date Resolved Date Gait abnormality 01/17/2012 02/09/2015 Back pain 01/17/2012 02/09/2015 Paraplegia 04/04/2011 02/09/2015 Osteoporosis 03/06/2011 02/09/2015 Urinary tract infection 12/24/200603/11
--- OUTSIDE RECORDS SUMMARY | 2024-03-16 12:25 | XMS_ITS | Encounter Summary ---
Author Name Unknown Organization [facility] Address [address], [place] [address] Care Team Providers Care Fittings Finisher Name Role Phone Franklin Squires MD Primary Care Provider Encounter Details Date Type Department Care Team (Late st Contact Info) Description 08/20/2014 Outside Hospital External to [facility] H/P Social History Tobacco Use [...] on filedocumented in this encounter Care Teams Fittings Finisher Relationship Specialty Start Date End Date Franklin Squires MD 100 [place] [address] PCP - General Family Practice 03/08/16 documented as of this encounter
--- OUTSIDE RECORDS SUMMARY | 2024-03-16 12:25 | XMS_ITS | Encounter Summary ---
Author Name Unknown Organization [facility] Address [address] [address] Care Team Providers Care Ward Supervisor Name Role Phone Franklin Squires MD Primary Care Provider [phone] Encounter Details Date Type Department Care Team (Late st Contact Info) Description 06/11/2014 [facility] 401 Physical Medicine 401 [place] [address] May Randle MD [address] [place] [address] [facility] Social History Tobacco Use Types Packs/Day [...] on filedocumented in this encounter Care Teams Ward Supervisor Relationship Specialty Start Date End Date [facility] Squires MD [address] [facility] [address] PCP - General Family Practice 03/08/16 documented as of this encounter
--- OUTSIDE RECORDS SUMMARY | 2024-03-16 12:25 | XMS_ITS | Encounter Summary ---
Author Name Unknown Organization [facility] Address [address] [address] Care Team Providers Care Clerk Operator Name Role Phone Franklin Squires MD Primary Care Provider Encounter Details Date Type Department Care Team (Latest Contact Info) Description 12/11/2017 Correspondence Physiatry/Physical Medicine at [facility] [address] [facility] [place] [address] May Randle MD [address] [place] [address] [employer] Social History Tobacco Use [...] on filedocumented in this encounter Care Teams Clerk Operator Relationship Specialty Start Date End Date Franklin Squires MD [address] [place] [address] [place] [address] PCP - General Family Practice 03/08/16 documented as of this encounter
--- OUTSIDE RECORDS SUMMARY | 2024-03-16 12:25 | XMS_ITS | Encounter Summary ---
Author Name Unknown Organization [facility] Address [address] [address] Care Team Providers Care Manager Switch Name Role Phone Franklin Squires MD Primary Care Provider Encounter Details Date Type Department Care Team (Late st Contact Info) Description 07/28/2014 Outside Hospital External to External, Provider No address [address] ER VISIT/TRANSFER Social History Tobacco Use [...] filedocumented in this encounter Care Teams Manager Switch Relationship Specialty Start Date End Date Franklin Squires MD 100 [facility] [address] PCP - General Family Practice 03/08/16 documented as of this encounter
--- OUTSIDE RECORDS SUMMARY | 2024-03-16 12:26 | XMS_ITS | Encounter Summary ---
Author Name Unknown Organization [facility] Address [address] [address] Care Team Providers Care Funeral Director Name Role Phone Franklin Squires MD Primary Care Provider Encounter Details Date Type Department Care Team (Late st Contact Info) Description 11/13/[address] [facility] Radiology [address] [place] [address] Radiology, Provider MRI SAFETY SHEET AND COMPATIBILITY [...] PROVIDER - 11/13/2012 12:00 AM CST E SCENE INVESTIGATOR documented in this encounter Plan of Treatment Not on file documented as of this encounter Visit Diagnoses Not on filedocumented in this encounter Care Teams Funeral Director Relationship Specialty Start Date End Date Franklin Squires MD 100 [facility] [place] [address] PCP - General Family Practice 03/08/16 documented as of this encounter
--- OUTSIDE RECORDS SUMMARY | 2024-03-16 12:26 | XMS_ITS | Encounter Summary ---
Author Name Unknown Organization [facility] Address [address], [place] [address] Care Team Providers Care Health Officer Name Role Phone Franklin Squires MD Primary Care Provider Encounter Details Date Type Department Care Team (Late st Contact Info) Description 04/24/2012 Correspondence [facility] Radiology [address] [place] [address] Radiology, Provider MRI SAFETY SHEET AND COMPATIBILITY [...] filedocumented in this encounter Care Teams Health Officer Relationship Specialty Start Date End Date Franklin Squires MD 100 [facility] [address] PCP - General Family Practice 03/08/16 documented as of this encounter
--- OUTSIDE RECORDS SUMMARY | 2024-03-16 12:26 | XMS_ITS | Encounter Summary ---
Author Name Unknown Organization [facility] Address [address] [address] Care Team Providers Care High Raw Sugar Boiler Name Role Phone Franklin Squires MD Primary Care Provider Encounter Details Date Type Department Care Team (Late st Contact Info) Description 02/05/2014 Correspondence [facility] Physical Therapy [address] [place] [address] Trudi Raymundo, PT [address] [place] [address] LETTER OF MEDICAL NECESSITY FOR A WHEELCHAIR [...] filedocumented in this encounter Care Teams High Raw Sugar Boiler Relationship Specialty Start Date End Date Franklin Squires MD 100 [facility] [address] PCP - General Family Practice 03/08/16 documented as of this encounter
--- OUTSIDE RECORDS SUMMARY | 2024-03-16 12:26 | XMS_ITS | Encounter Summary ---
Author Name Unknown Organization [facility] Address [address] [address] Care Team Providers Care Boiler Blower Name Role Phone Franklin Squires MD Primary Care Provider [phone] Encounter Details Date Type Department Care Team (Late st Contact Info) Description 04/20/[address] [address] Radiology, Provider MRI SAFETY SHEET AND COMPATIBILITY [...] on filedocumented in this encounter Care Teams Boiler Blower Relationship Specialty Start Date End Date Franklin Squires MD 100 [facility] [place] [address] PCP - General Family Practice 03/08/16 documented as of this encounter
--- OUTSIDE RECORDS SUMMARY | 2024-03-16 12:26 | XMS_ITS | Encounter Summary ---
Author Name Unknown Organization [facility] Address [address], [place] [address] Care Team Providers Care Solar Development Engineer Name Role Phone Franklin Squires MD Primary Care Provider Encounter Details Date Type Department Care Team (Late st Contact Info) Description 03/11/2014 [facility] 401 Interventional Pain Management 401 [facility] [place] [address] Zelalem Cohen, DO [address] [place] [address] EMPI Social History Tobacco Use Types Packs/Day [...] on filedocumented in this encounter Care Teams Solar Development Engineer Relationship Specialty Start Date End Date Franklin Squires MD 100 [facility] [place] [address] PCP - General Family Practice 03/08/16 documented as of this encounter
--- OUTSIDE RECORDS SUMMARY | 2024-03-16 12:26 | XMS_ITS | Encounter Summary ---
Author Name Unknown Organization [facility] Address [address] [address] Care Team Providers Care Follow Up Specialist Name Role Phone Franklin Squires MD Primary Care Provider [phone] Encounter Details Date Type Department Care Team ([facility] st Contact Info) Description 10/26/2013 Correspondence [facility] Physical Therapy [address] [place] [address] Trudi Raymundo, PT [address] [place] [address] LETTER OF MEDICAL NECESSITY Social History Tobacco [...] Raymundo, PT - 10/26/2013 12:00 AM CST S TENDER INCENDIARY GRENADE documented in this encounter Plan of Treatment Not on file documented as of this encounter Visit Diagnoses Not on filedocumented in this encounter Care Teams Follow Up Specialist Relationship Specialty Start Date End Date Franklin Squires MD 100 [facility] [place] [address] PCP - General Family Practice 03/08/16 documented as of this encounter
--- OUTSIDE RECORDS SUMMARY | 2024-03-16 12:26 | XMS_ITS | Encounter Summary ---
Author Name Unknown Organization [facility] Address [address] [address] Care Team Providers Care Geotechnical Field Technician Name Role Phone Franklin Squires MD Primary Care Provider [phone] Encounter Details Date Type Department Care Team [...] on filedocumented in this encounter Care Teams Geotechnical Field Technician Relationship Specialty Start Date End Date Franklin Squires MD 100 [facility] [place] [address] PCP - General Family Practice 03/08/16 documented as of this encounter
--- OUTSIDE RECORDS SUMMARY | 2024-03-16 12:26 | XMS_ITS | Encounter Summary ---
Author Name Unknown Organization [facility] Address [address] [address] Care Team Providers Care Lottery Office Manager Name Role Phone Fraknlin Squires MD Primary Care Provider Encounter Details Date Type Department Care Team (Late st Contact Info) Description 12/16/2013 Correspondence [facility] Radiology [address] [place] [address] Radiology, Provider MRI SAFETY SHEET AND COMPATIBILITY [...] Radiology, Provider - 12/16/2013 12:00 AM CST GER STORE documented in this encounter Plan of Treatment Not on file documented as of this encounter Visit Diagnoses Not on filedocumented in this encounter Care Teams Lottery Office Manager Relationship Specialty Start Date End Date Franklin Squires MD 100 [facility] [place] [address] PCP - General Family Practice 03/08/16 documented as of this encounter
--- OUTSIDE RECORDS SUMMARY | 2024-03-16 12:26 | XMS_ITS | Encounter Summary ---
Author Name Unknown Organization [facility] Address [address] [address] Care Team Providers Care Government Affairs Director Name Role Phone Franklin Squires MD Primary Care Provider Encounter Details Date Type Department Care Team (Late st Contact Info) Description 09/17/2013 Correspondence External to External, [place] [address] EMPOWERMENT RULES Social History Tobacco Use Types [...] External, Provider - 09/17/2013 12:00 AM CST ER VINYL COATING documented in this encounter Plan of Treatment Not on file documented as of this encounter Visit Diagnoses Not on filedocumented in this encounter Care Teams Government Affairs Director Relationship Specialty Start Date End Date Franklin Squires MD 100 [facility] [address] PCP - General Family Practice 03/08/16 documented as of this encounter
--- OUTSIDE RECORDS SUMMARY | 2024-03-16 12:26 | XMS_ITS | Encounter Summary ---
Author Name Unknown Organization [facility] Address [address] [place] [address] Care Team Providers Care Global Professional Name Role Phone Franklin Squires MD Primary Care Provider [phone] Encounter Details Date Type Department Care Team (Late st Contact Info) Description 01/08/2013 Scanned History External to Transferred Record, Provider [facility] Social History Tobacco Use Types [...] on filedocumented in this encounter Care Teams Global Professional Relationship Specialty Start Date End Date Franklin Squires MD 100 [facility] [place] [address] PCP - General Family Practice 03/08/16 documented as of this encounter
--- OUTSIDE RECORDS SUMMARY | 2024-03-16 12:26 | XMS_ITS | Encounter Summary ---
Author Name Unknown Organization [facility] Address [address], [place] [address] Care Team Providers Care Casino Attendant Name Role Phone Franklin Squires MD Primary Care Provider [phone] Encounter Details Date Type Department Care Team (Late st Contact Info) Description 07/23/2013 Correspondence [facility] 401 Interventional Pain Management 401 [facility] [place] [address] Zelalem Cohen DO [address] [place] [address] [employer] Social History Tobacco Use Types [...] MD - 07/23/2013 12:00 AM CDT ER documented in this encounter Plan of Treatment Not on file documented as of this encounter Visit Diagnoses Not on filedocumented in this encounter Care Teams Casino Attendant Relationship Specialty Start Date End Date Franklin Squires MD 100 [facility] [place] [address] PCP - General Family Practice 03/08/16 documented as of this encounter
== END 2024-03-16 12:23 | disposition home or self-care (01) ==
LOC: WOUND 12:22
PROVIDERS: PCP Family Medicine; Visit Provider Family Medicine
DX: M86.18 Other acute osteomyelitis, other site (principal); E11.622 Type 2 diabetes mellitus with other skin ulcer; L89.324 Pressure ulcer of left buttock, stage 4; G82.50 Quadriplegia, unspecified
CPT/HCPCS: 11042

== ENCOUNTER 2024-03-23 12:45 | Outpatient (CLI) | payer MEDICARE, OTHER, SELFPAY ==
--- OUTSIDE RECORDS SUMMARY | 2024-03-23 12:48 | XMS_ITS | Clinical Summary ---
Author Name Unknown Organization [employer] [facility] Address [place], [place] [address] Care Team Providers Care General Ophthalmologist Name Role Phone Zelalem Cohen MD Unavailable [phone] May Randle MD Unavailable [phone] Franklin Squires MD Primary Care Provider Fred Craft Unavailable [phone] Diane Charles MD Unavailable [phone] Julia Ware RN Unavailable [phone] Allergies Active Allergy Reactions Criticality Noted Date [...] bedIndications:Non-heal ing surgical wound, subsequent encounter [employer] 8 inch low loss mattress and 1/2 rails. Semi-electric bed. Length of need 6 weeks. Bed bindery machine setter/set up operator:no 1 unit 018 Active acetaminophen (TYLENOL EXTRA [...] 60mm, Cut-to-Fit 01/16 - 2 11/18. Item #[id number]. 1 Each 11 021 Active furosemide (LASIX) [...] MOUTH EVERY 6 HOURS 120 Tablet Active LORazepam (ATIVAN) 0.5 mg tabIndications:Parapleg ia (HC) TAKE ONE TABLET BY MOUTH TWICE A DAY AND TAKE TWO TABLETS BY MOUTH AT BEDTIME 120 Tablet 2 023 2023 Discontinued(R eorder (E-cancel not sent)) oxyCODONE 10 mg tabletIndications:Chron ic pain syndrome Take 1 Tablet (10 mg) by mouth every 6 hours. 120 Tablet 024 2023 Discontinued amoxicillin-clavulanate 875-125 mg tablet (AUGMENTIN)Indications: lower respiratory infection Take 1 Tablet by mouth two times daily with meals for 7 days. 14 Tablet 024 2023 LORazepam (ATIVAN) 0.5 mg tabIndications:Parapleg ia (HC) [...] GOAL 2.0-2.5 (but use 2-3 guidelines per aTvia 03/02/19)-- Osteoporosis, unspecified 02/12/2011 Vitamin D deficiency 09/08/2010 Paraplegia 09/27/2008 Last Assessment & Plan: Orthopedics: Dr. Bright PM&R: Dr. May Randle Pain Management: Dr. 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 Pure hypercholesterolemia 12/24/2006 Neurogenic bladder 12/24/2006 Neurogenic bowel 12/24/2006 Hypertension Resolved Problems Problem Noted Date Diagnosed Date Resolved Date Soft tissue infection 10/22/20232023 alf current use of anticoagulant 06/20/2023 01/08/2024 Cellulitis of scrotum 05/08/20232022 UTI (urinary tract infection) 05/08/2023 06/20/2023 Quadriplegia, unspecified 10/23/2022 Continuous opioid dependence 07/01/2022 08/20/2022 Urinary tract infection asso ciated with indwelling urethral catheter 10/05/2021 06/20/2023 Hypertensive urgency 10/04/2021 023 Type 2 diabetes mellitus, [facility] long-term current use of insulin 01/06/2021 02/14/2024 [...] delivery 04/16/2007 10/01/2007 Overview: S/P IVC Filter alf (current) use of anticoagulants 02/19/2007 09/27/2008 Depressive disorder, not elsewhere classified 02/14/20 07 01/15/2018 Abnormality of gait 12/24/2006 09/27/20 08 Urinary tract infection, site not specified 12/24/2006 01/15/2018 BENIGN ESSENTIAL HYPERTENSION 12/24/2006 04/17/2016 Overview: borderline Necrotizing fasciitis 2018 Type 2 diabetes mellitus Encounters Date Type Department Care Team Description 03/20/2024 4:32 PM CDT - 03/20/2024 8:34 PM CDT Emergency [facility] [address] [place] [address] Quan Corbett PA Suprapubic catheter dysfunction, initial encounter (HC) (Primary Dx) Discharge Disposition: Home Self Care 03/20/2024 Travel 03/20/[address] [address] Franklin Squires MD other (FYI / UPDATE ) 03/19/2024 Anticoagulation (warfarin) [address] [address] 1, [facility] Anticoagulation (acelis) 03/13/2024 2:10 PM CDT Orders Only [address] [address] Lab, [facility] 03/13/2024 Travel 03/10/[address] [address] Franklin Squires MD Form (Home Health Certification and Plan of Care. ) 03/10/[address] [address] Franklin Squires MD Form (60 day summary report. SNV 2x/wk for wound care.) 03/05/2024 Anticoagulation (warfarin) [address] [address] 1, [facility] Anticoagulation (Acelis) 03/02/[address] [address] Gabrielle Prado PA Refill Request (Oxycodone) 03/02/[address] [address] Franklin Squires MD Refill Request (Lorazepam) 02/24/2024 Patient Outreach [facility] Care Management - Advanced Care Team [address] [place] [address] Archana Wright RN Complex Care Management (ACO outreach engagement ) 02/24/[address] [address] Franklin Squires MD Form (Physician Orders. Medication order: Lorazapam 0.5 mg; oral tablet. Amoxicillin- clavulanate 875mg) 02/24/[address] [address] Franklin Squires MD Refill Request (LORazepam (ATIVAN) 0.5 mg tab) 02/20/2024 1:30 PM CDT Office Visit [address] [address] Franklin Squires MD Hospital F/U (02/15/24) 02/20/2024 Anticoagulation (warfarin) [address] [address] 1, [facility] Anticoagulation 02/20/2024 Travel 02/18/2024 Anticoagulation (warfarin) [address] [address] 1, [facility] Anticoagulation (acelis) 02/18/2024 Patient Outreach [facility] [address] [place] [address] Archana Stein, RN Primary RN Care Management (Hospital DC:02/17/24/LACE:47/Pne [facility]); Hospital F/U 02/17/2024 Telephone [facility] [address] [place] [address] Franklin Squires MD Form (Service Order: Hold. [facility] Effective: 02/15/2024) 02/15/2024 4:34 PM CDT - 02/17/2024 2:45 PM CDT Hospital Encounter [facility] [address] [place] [address] [facility] Oziel Hollingsworth Alireza, MD Pneumonia due to infectious organism, unspecified laterality, unspecified part of lung (Primary Dx); History of DVT (deep vein thrombosis); Pressure injury of right buttock, stage 1 Discharge Disposition: Home Self Care 02/15/2024 Travel 02/15/2024 Refill [facility] [address] [place] [address] 1, [facility] Refill Request (Warfarin) 02/14/2024 3:10 PM CDT - 02/15/2024 2:45 PM CDT Hospital Encounter [facility] [address] [place] [address] Quan Corbett, ROXY Ramírez, MD Terence Bruno, DO Saida Waller Jonathan Philip, CLEMENT Cruz, Malini Ferro NP Leukocytosis, unspecified type (Primary Dx); Fever, unspecified fever cause; Chills; Tachycardia; Pulmonary infiltrate; Elevated C-reactive protein (CRP); Pressure injury of deep tissue of left buttock Discharge Disposition: Critical Access Hospital 02/14/2024 Travel 02/05/2024 Anticoagulation (warfarin) [address] [phone] [address] [place] [address] [facility] Anticoagulation (Acelis) 01/28/[address] [phone] Franklin Squires MD Refill Request (Oxycodone) 01/22/[address] [address] Franklin Squires MD Form (Standard Written Order: Rehab Accessories./Cushion, Quadtro Select HI PRO 20x20 or 11x11 Cell) 01/22/[address] [phone] Franklin Squires MD Form (Standard Written Order: Repairs/Battery, M34 Gel 60AH C300 60 AMP Hours use 8AMP Product Director) 01/22/2024 Anticoagulation (warfarin) [address] [phone] [address] [place] [address] [facility] Anticoagulation (Acelis) 01/16/[address] [address] Franklin Squires MD Refill Request (Bupropion) 01/09/[address] [address] Franklin Squires MD Form (Home Health Certification and Plan of Care.) 01/08/[address] [address] Franklin Squires MD Form ([facility] 60 Day Summary Report) 01/08/2024 Anticoagulation (warfarin) [address] [address] 1, [facility] Anticoagulation (acelis) 01/01/2024 Anticoagulation (warfarin) [address] [place] [address] 1, [facility] Anticoagulation (Acelis) 12/29/[address] [place] [address] Franklin Squires MD Refill Request (Oxycodone) 12/26/[address] [place] [address] Franklin Squires MD Form 12/26/[address] [place] [address] Franklin Squires MD Anticoagulation (Question/review) 12/25/2023 Anticoagulation (warfarin) [address] [place] [address] 1, [facility] Anticoagulation (Acelis) from Last 3 Months Immunizations Name Administration Dates Next Due COVID-19 vaccine (ChipX-[place] NTech 30mcg/0.3mL) 12YO+ BIVALENT PF, MDV 10/22/2022 COVID-19 vaccine (ChipX-[place] NTech 30mcg/0.3mL) PF, MDV 01/25/2021,01/02/2021 Influenza A [...] Sign Reading Time Taken Comments Blood Pressure 129/82 03/20/2024 4:50 PM CDT Pulse 83 03/20/2024 4:50 PM CDT Temperature 36.6 ??C (97.8 ??F) 03/20/2024 4:50 PM CD T Respiratory Rate 20 03/20/2024 4:50 PM CDT Oxygen Saturation 97% 03/20/2024 4:50 PM CDT Inhaled Oxygen Concentration - - Weight 95.9 kg (211 lb 8 oz) 03/20/2024 4:50 PM CDT Height 175.3 cm (5' 9) 03/20/2024 4:50 PM CDT Body Mass Index 31.23 03/20/2024 4:50 PM CDT Plan of Treatment Upcoming Encounters Date Type Department Care Team (Late st Contact Info) Description 04/03/2024 2:30 PM CDT Office Visit [facility] [address] [place] [address] Franklin Squires MD [address] [place], [place] [phone] Health Maintenance Due Date Last Done Comments [...] Procedure Name Priority Date/Time Associated Diagnosis Comments BLADDER CATHETERIZATION Routine 03/20/2024 7:52 PM CDT AEROBIC BACTERIAL CULTURE, STAIN STAT 03/20/2024 5:01 PM CDT CBC WITH AUTO DIFFERENTIAL STAT 03/20/2024 4:58 PM CDT LACTATE VENOUS Today 03/20/2024 4:58 PM CDT BASIC METABOLIC PANEL STAT 03/20/2024 4:58 PM CDT CBC WITH AUTO DIFFERENTIAL STAT 03/20/2024 4:58 PM CDT HOME MONITOR AC Routine 03/19/2024 12:00 AM CDT URINALYSIS MICROSCOPIC STAT 11:04 AM CDT Suprapubic catheter (HC) Fever, [...] 02/14/2024 5:07 PM CDT URINALYSIS MICROSCOPIC STAT 5:07 PM CDT UA W/ SEDIMENT EXAM [...] HOME MONITOR AC Routine 01/08/2024 12:00 AM PNEUMATIC TESTER MECHANIC HOME MONITOR AC Routine 01/01/2024 12:00 AM PNEUMATIC TESTER MECHANIC HOME MONITOR AC Routine 12/25/2023 12:00 AM PNEUMATIC TESTER MECHANIC from Last 3 Months Results * BLADDER CATHETERIZATION (03/20/2024 7:52 PM CDT) Narrative Quan Corbett PA - 03/20/2024 7:52 PM CDT Quan Corbett PA ? 03/20/2024 ??8:20 PM BLADDER CATHETERIZATION Date/Time: 03/20/2024 7:52 PM Performed by: Quan Corbett PA Authorized by: Quan Corbett PA ?? Consent: ??Consent obtained: ??Verbal ??Consent given by: ??Patient and parent ??Risks, benefits, and alternatives were discussed: yes ?Risks discussed: ??Pain, incomplete procedure and infection Dalton protocol: ??Procedure explained and questions answered to patient or proxy's satisfaction: yes ?Required blood products, implants, devices, and special equipment available: yes ?Patient identity confirmed: ??Arm band Pre-procedure details: ??Procedure purpose: ??Therapeutic ??Preparation: Patient was prepped and draped in usual sterile fashion ?? Anesthesia: ??Anesthesia method: ??None Procedure details: ??Provider performed due to: ??Nurse unable to complete (Suprapubic catheter.) ??Catheter insertion: ??Indwelling ??Catheter type: ??De La Cruz ??Catheter size: ??24 Fr ??Bladder irrigation: yes ?Number of attempts: ??1 ??Urine characteristics: ??Clear Post-procedure details: ??Procedure completion: ??Tolerated well, no immediate complications Quan RAMSEY PROCEDURE O RD * (ABNORMAL) CBC WITH AUTO DIFFERENTIAL (03/20/2024 4:58 PM CDT) Only the most recent of3 resultswithin the time period is included. WHITE BLOOD COUNT 10.9 4.5 - 11.0 thou/cu mm 03/20/2024 5:06 PM [facility] RED BLOOD COUNT 4.92 4.30 - 5.90 mil/cu mm 03/20/2024 5:06 PM [facility] HEMOGLOBIN 12.7(L) 13.5 - 17.5 g/dL 03/20/2024 5:06 PM [facility] HEMATOCRIT 40.0 37.0 - 53.0 % 03/20/2024 5:06 PM [facility] MCV 81 80 - 100 fL 03/20/2024 5:06 PM [facility] MCH 25.8(L) 26.0 - 34.0 pg 03/20/2024 5:06 PM [facility] MCHC 31.8(L) 32.0 - 36.0 g/dL 03/20/2024 5:06 PM [facility] RDW 18.1(H) 11.5 - 15.5 % 03/20/2024 5:06 PM [facility] PLATELET COUNT 263 140 - 440 thou/cu mm 03/20/2024 5:06 PM [facility] MPV 9.4 6.5 - 11.0 fL 03/20/2024 5:06 PM [facility] % NEUT 68.4 % 03/20/2024 5:06 PM [facility] % LYMPH 20.1 % 03/20/2024 5:06 PM [facility] % MONO 8.4 % 03/20/2024 5:06 PM [facility] % EOS 2.8 % 03/20/2024 5:06 PM [facility] % BASO 0.3 % 03/20/2024 5:06 PM [facility] ABSOLUTE NEUTROPHILS 7.4(H) 1.7 - 7.0 thou/cu mm 03/20/2024 5:06 PM [facility] ABSOLUTE LYMPHOCYTES 2.2 0.9 - 2.9 thou/cu mm 03/20/2024 5:06 PM CDT [facility] ABSOLUTE MONOCYTES 0.9(H) <0.9 thou/cu mm 03/20/2024 5:06 PM CDT [facility] ABSOLUTE EOSINOPHILS 0.3 <0.5 thou/cu mm 03/20/2024 5:06 PM CDT [facility] ABSOLUTE BASOPHILS 0.0 <0.3 thou/cu mm 03/20/2024 5:06 PM CDT [facility] Blood BLOOD SPECIMEN / Unknown Butterfly / Unknown 03/20/2024 4:58 PM CDT 03/20/2024 5:02 PM CDT Quan RAMSEY HEMATOLOGY Performing Organization Address [facility]/ZIP Co de Phone Number [facility] [address] [place] [address] * LACTATE VENOUS (03/20/2024 4:58 PM CDT) Only the most recent of2 resultswithin the time period is included. LACTATE,VENOUS 1.3 0.5 - 2.0 mmol/L 03/20/2024 5:21 PM CDT [facility] Blood BLOOD SPECIMEN / Unknown Butterfly / Unknown 03/20/2024 4:58 PM CDT 03/20/2024 5:02 PM CDT Quan RAMSEY CHEMISTRY Performing Organization Address [facility]/ZIP Co de Phone Number [facility] [address] [place] [address] * (ABNORMAL) BASIC METABOLIC PANEL (03/20/2024 4:58 PM CDT) SODIUM 139 136 - 145 mmol/L 03/20/2024 5:22 PM CDT [facility] POTASSIUM 4.5 3.5 - 5.1 mmol/L 03/20/2024 5:22 PM CDT [facility] CHLORIDE 100 98 - 107 mmol/L 03/20/2024 5:22 PM CDT [facility] CO2,TOTAL 29 22 - 29 mmol/L 03/20/2024 5:22 PM [facility] ANION GAP 10 5 - 18 03/20/2024 5:22 PM [facility] GLUCOSE 115(H) 70 - 99 mg/dL 03/20/2024 5:22 PM [facility] CALCIUM 9.4 8.8 - 10.2 mg/dL 03/20/2024 5:22 PM [facility] BUN 21 8 - 23 mg/dL 03/20/2024 5:22 PM [facility] CREATININE 0.63(L) 0.70 - 1.20 mg/dL 03/20/2024 5:22 PM [facility] BUN/CREAT RATIO 33(H) 10 - 20 5:22 PM [facility] eGFR >90 >90 mL/min/1.7 3m2 03/20/2024 5:22 PM [facility] Comment:As of 2022, eG FR is calculated by the CKD-EPI creatinine equation without race adjustment. ??eGFR can be influenced by muscle mass, exercise, and diet. ??The reported eGFR is an estimation only and is only applicable if the renal function is stable. Blood BLOOD SPECIMEN / Unknown Butterfly / Unknown 03/20/2024 4:58 PM CDT 03/20/2024 5:02 PM CDT Quan RAMSEY CHEMISTRY [facility] [address] [place] [address] * HOME MONITOR AC (03/19/2024 12:00 AM CDT) Only the most recent of8 resultswithin the time period is included. PATIENT REPORTED HOME INR 2.0 2.00 - 3.00 ALERE HOME MONITORING 03/19/2024 Franklin Squirse MD OTHER [facility] [address] [place] [address] * (ABNORMAL) URINALYSIS MICROSCOPIC (03/13/2024 11:04 AM CDT) Only the most recent of2 resultswithin the time period is included. RBC 0-2 0-2, None Seen /HPF 03/13/2024 2:26 PM CDT [facility] WBC 6-10(A) 0-2, 3-5, None Seen /HPF 03/13/2024 2:26 PM CDT [facility] BACTERIA Few None Seen, Rare, Few Bacteria/ HPF 03/13/2024 2:26 PM CDT [facility] EPITHELIAL CELLS Few None Seen, Few Epi/HPF 03/13/2024 2:26 PM CDT [facility] WHITE CELL CLUMPS Present(A) (none) 03/13/2024 2:26 PM CDT [facility] Urine URINE SPECIMEN / Unknown Non-Blood / Unknown 03/13/2024 11:04 AM CDT 03/13/2024 1:37 PM CDT Franklin Squires MD URINE [facility] [address] [place] [address] * (ABNORMAL) URINE CULTURE (03/13/2024 11:04 AM CDT) Only the most recent of2 resultswithin the time period is included. CULTURE RESULT(A) 03/16/2024 9:13 AM CDT [facility] CULTURE >100,000 CFU/mL Pseudomonas aeruginosa 03/16/2024 9:13 AM CDT [facility] CULTURE 50,000-100,000 CFU/mL Staphylococcus aureus 03/16/2024 9:13 AM CDT [facility] LAB[facility] CULTURE 10,000-50,000 CFU/mL Enterobacter cloacae complex 03/16/2024 9:13 AM CDT [facility] Comment: May develop resistance during [...] AM CDT 03/13/2024 1:37 PM CDT Narrative [facility] - 03/16/2024 9:13 AM CDT May represent colonization. No further workup pending. Franklin Squires MD MICROBIOLOGY [facility] [address] [place] [address], [place] * (ABNORMAL) UA W/ SEDIMENT EXAM REFLEXED PER CRITERIA (03/13/2024 11:04 AM CDT) Only the most recent of2 resultswithin the time period is included. COLOR Yellow Yellow Color 03/13/2024 2:24 PM [facility] CLARITY Clear Clear Clarity 03/13/2024 2:24 PM [facility] SPECIFIC GRAVITY,URINE <=1.005(A) 1.010, 1.015, 1.020, 1.025 03/13/2024 2:24 PM [facility] PH,URINE 6.5 6.0, 7.0, 8.0, 5.5, 6.5, 7.5, 8.5 03/13/2024 2:24 PM [facility] UROBILINOGEN, QUALITATIVE Normal Normal EU/dl 03/13/2024 2:24 PM [facility] PROTEIN, URINE Negative Negative mg/dL 03/13/2024 2:24 PM [facility] GLUCOSE, URINE Negative Negative mg/dL 03/13/2024 2:24 PM [facility] KETONES,URINE Negative Negative mg/dL 03/13/2024 2:24 PM [facility] BILIRUBIN,URI NE Negative Negative 03/13/2024 2:24 PM CDT [facility] OCCULT BLOOD,URINE Moderate(A) Negative 03/13/2024 2:24 PM CDT [facility] NITRITE Negative Negative 03/13/2024 2:24 PM CDT [facility] LEUKOCYTE ESTERASE Moderate(A) Negative 03/13/2024 2:24 PM CDT [facility] Urine URINE SPECIMEN / Unknown Non-Blood / Unknown 03/13/2024 11:04 AM CDT 03/13/2024 1:37 PM CDT Franklin Squires MD URINE Performing Organization Address City/[facility]/ZIP Co de Phone Number [facility] [address] [place] [address] * POTASSIUM (02/20/2024 2:15 PM CDT) Only the most recent of2 resultswithin the time period is included. POTASSIUM 4.3 3.5 - 5.1 mmol/L 02/20/2024 4:02 PM CDT [facility] Blood BLOOD SPECIMEN / Unknown Venipuncture / Unknown 02/20/2024 2:15 PM CDT 02/20/2024 3:06 PM CDT Franklin Squires MD CHEMISTRY Performing Organization Address City/[facility]/ZIP Co de Phone Number [facility] [address] [place] [address] * (ABNORMAL) PROTIME-INR (02/20/2024 2:15 PM CDT) Only the most recent of5 resultswithin the time period is included. INR 1.9(H) <1.3 02/20/2024 2:38 PM CDT [facility] PROTIME 21.2(H) 10.3 - 12.3 sec 02/20/2024 2:38 PM CDT [facility] Blood BLOOD SPECIMEN / Unknown Venipuncture / Unknown 02/20/2024 2:15 PM CDT 02/20/2024 2:15 PM CDT Narrative [facility] - 02/20/2024 2:38 PM CDT [...] is on UFH. Franklin Squires MD HEMATOLOGY [facility] [address] [place] [id number] * SODIUM (02/17/2024 5:11 AM CDT) SODIUM 140 136 - 145 mmol/L 02/17/2024 6:14 AM T [facility] Blood BLOOD SPECIMEN / Unknown Butterfly / Unknown 02/17/2024 5:11 AM CDT 02/17/2024 5:44 AM CDT John Ludwig MD CHEMISTRY [facility] [place]NAL ZIP [address] [address] [place] [address] * (ABNORMAL) CREATININE (02/17/2024 5:11 AM CDT) eGFR >90 >90 mL/min/1.7 3m2 02/17/2024 6:14 AM CDT [facility] Comment:As of 2022, eG FR is calculated by the CKD-EPI creatinine equation without race adjustment. ??eGFR can be influenced by muscle mass, exercise, and diet. ??The reported eGFR is an estimation only and is only applicable if the renal function is stable. CREATININE 0.56(L) 0.70 - 1.20 mg/dL 02/17/2024 6:14 AM CDT [facility] Blood BLOOD SPECIMEN / Unknown Butterfly / Unknown 02/17/2024 5:11 AM CDT 02/17/2024 5:44 AM CDT John Ludwig MD CHEMISTRY [facility] INTERNAL ZIP [address] [address] [address] * MAGNESIUM (02/17/2024 5:11 AM CDT) MAGNESIUM 2.0 1.6 - 2.4 mg/dL 02/17/2024 7:44 AM CDT [facility] Blood BLOOD SPECIMEN / Unknown Butterfly / Unknown 02/17/2024 5:11 AM CDT 02/17/2024 5:44 AM CDT John Ludwig MD CHEMISTRY [facility] INTERNAL ZIP [address] [address] [address] * (ABNORMAL) GLUCOSE METER (02/16/2024 11:41 AM CDT) Only the most recent of6 resultswithin the time period is included. GLUCOSE METER 129(H) 65 - 100 mg/dL 02/16/2024 12:02 PM CDT [facility] Blood BLOOD SPECIMEN / Unknown 02/16/2024 11:41 AM CDT 02/16/2024 12:02 PM CDT John Ludwig MD CHEMISTRY [facility] INTERNAL ZIP [address] [address] [address] * LEGIONELLA AND PNEUMOCOCCAL URINE ANTIGEN (02/15/2024 10:25 AM CDT) STREP PNEUMO ANTIGEN Negative 02/15/2024 3:46 PM CDT [facility] Comment:Presumptive negative for pneumococcal pneumonia, suggesting no current or recent pneumococcal infection. Infection due to S. pneumoniae cannot be ruled out since the antigen present in the sample may be below the detection limit of the test. LEGIONELLA ANTIGEN Negative 02/15/2024 3:46 PM CDT [facility] Comment:Negative for L.pneum ophila serogroup 1 [...] James Ramírez MD MICROBIOLOGY Performing Organization Address City/[facility]/ZIP Co de Phone Number [facility] [address] [place] [phone], * (ABNORMAL) WHITE BLOOD COUNT (02/15/2024 5:54 AM CDT) [facility] Signature WHITE BLOOD COUNT 11.7(H) 4.5 - 11.0 thou/cu mm 02/15/2024 7:16 AM CDT [facility] Blood BLOOD SPECIMEN / Unknown Venipuncture / Unknown 02/15/2024 5:54 AM CDT 02/15/2024 7:09 AM CDT James Ramírez MD HEMATOLOGY [facility] [address] [place] [address] [id number] * CT ABDOMEN PELVIS WO (02/14/2024 8:12 [...] 6-15 ng/L ng/L 02/14/2024 8:12 PM CDT [facility] Blood BLOOD SPECIMEN / Unknown Venipuncture / Unknown 02/14/2024 7:49 PM CDT 02/14/2024 7:53 PM CDT Quan RAMSEY CHEMISTRY [facility] [address] [place] [id number] * (ABNORMAL) TROPONIN T (HS) ACUTE W/2HR REFLEX (02/14/2024 5:35 PM CDT) [facility] TROPONIN T HS 33(H) 6-15 ng/L ng/L 02/14/2024 6:42 PM CDT [facility] Blood BLOOD SPECIMEN / Unknown Venipuncture / Unknown 02/14/2024 5:35 PM CDT 02/14/2024 5:38 PM CDT [facility] LABORATORY - 02/14/2024 6:42 PM CDT [...] emergency department patient population. Quan RAMSEY CHEMISTRY [facility] [address] [place] [address] * XR CHEST 1 VIEW PORTABLE (02/14/2024 [...] CULTURE No Growth. 02/20/2024 5:27 AM CDT [facility] Blood BLOOD SPECIMEN / Unknown Butterfly / Unknown 02/14/2024 3:58 PM CDT 02/14/2024 4:02 PM CDT Quan RAMSEY MICROBIOLOG Y [facility] [address] [place] [address] * PROCALCITONIN (02/14/2024 3:50 PM CDT) Pathologist [facility] PROCALCITONIN 0.10 ng/ml 02/14/2024 5:09 PM CDT [facility] Blood BLOOD SPECIMEN / Unknown Butterfly / Unknown 02/14/2024 3:50 PM CDT 02/14/2024 4:39 PM CDT Narrative [facility] - 02/14/2024 5:09 PM CDT [...] Quan RAMSEY SEND OUTS Performing Organization Address [facility] Co de Phone Number [facility] [address] [place] [address] * (ABNORMAL) C-REACTIVE PROTEIN (02/14/2024 3:50 PM CDT) [facility] C-REACTIVE PROTEIN 10.9(H) <0.5 mg/dL 02/14/2024 5:09 PM CDT [facility] Blood BLOOD SPECIMEN / Unknown Butterfly / Unknown 02/14/2024 3:50 PM CDT 02/14/2024 4:02 PM CDT Quan RAMSEY CHEMISTRY Performing Organization Address [facility] Co de Phone Number [facility] [address] [place] [address] * (ABNORMAL) COMP METABOLIC PANEL (02/14/2024 3:50 PM CDT) [facility] SODIUM 134(L) 136 - 145 mmol/L 02/14/2024 4:24 PM [facility] POTASSIUM 4.3 3.5 - 5.1 mmol/L 02/14/2024 4:24 PM [facility] CHLORIDE 96(L) 98 - 107 mmol/L 02/14/2024 4:24 PM [facility] CO2,TOTAL 25 22 - 29 mmol/L 02/14/2024 4:24 PM [facility] ANION GAP 13 5 - 18 02/14/2024 4:24 PM [facility] GLUCOSE 118(H) 70 - 99 mg/dL 02/14/2024 4:24 PM [facility] CALCIUM 9.4 8.8 - 10.2 mg/dL 02/14/2024 4:24 PM [facility] BUN 15 8 - 23 mg/dL 02/14/2024 4:24 PM [facility] CREATININE 0.60(L) 0.70 - 1.20 mg/dL 02/14/2024 4:24 PM [facility] BUN/CREAT RATIO 25(H) 10 - 20 4:24 PM [facility] eGFR >90 >90 mL/min/1.7 3m2 02/14/2024 4:24 PM [facility] Comment:As of 2022, eG FR is calculated by the CKD-EPI creatinine equation without race adjustment. ??eGFR can be influenced by muscle mass, exercise, and diet. ??The reported eGFR is an estimation only and is only applicable if the renal function is stable. ALBUMIN 4.1 4.0 - 4.9 g/dL 02/14/2024 4:24 PM [facility] PROTEIN,TOTAL 7.8 6.0 - 8.0 g/dL 02/14/2024 4:24 PM [facility] BILIRUBIN,TOTAL 0.6 0.0 - 1.2 mg/dL 02/14/2024 4:24 PM [facility] ALK PHOSPHATASE 117 40 - 129 IU/L 02/14/2024 4:24 PM [facility] ALT (SGPT) 47 10 - 50 IU/L 02/14/2024 4:24 PM CDT [facility] AST (SGOT) 42 10 - 50 IU/L 02/14/2024 4:24 PM CDT [facility] Blood BLOOD SPECIMEN / Unknown Butterfly / Unknown 02/14/2024 3:50 PM CDT 02/14/2024 4:02 PM CDT Quan RAMSEY CHEMISTRY [facility] [address] [place] [address] from Last 3 Months Additional Health Concerns [...] Documents on File Type Date Recorded Patient Community Product Specialist Expl anation Healthcare Directive 05/09/2023 023 [...] Status Discussion: Reviewed Preferences Care Teams General Ophthalmologist Relationship Specialty Start Date End Date Franklin Squires MD [address] [place] [address] PCP - General Family Practice 10/18/15 Zelalem Cohen MD Physical Therapist 03/13/12 May Randle MD Physical Medicine and Rehabilitation 03/13/12 Fred Craft LSW [address] [place] [address] Stage Electrician 05/03/17 Diane Charles MD [address] [place] [address] Surgery - Urology 01/17/23 Julia Ware, RN [address] [place] [address] Registered Nurse 07/17/23
--- OUTSIDE RECORDS SUMMARY | 2024-03-23 12:48 | XMS_ITS | Continuity of Care Document ---
Author Name [facility] Organization [facility] Care Team Providers Care Coal Loader Name Role Phone [facility] Unavailable Unavailable Problems Combined list of problems from 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 It does not include entries that were removed or entered in error. Problem Status Onset Date Problem Type Date of Resolution Comments Source Abnormal liver function Active Condition [facility] Anemia ([facility] 606968881) Active Condition [facility] Anxiety ([facility] 23270495) Active Condition [facility] Autonomic dysreflexia Active Condition [facility] Chronic Pain Syndrome ([facility] 660178193) Active Condition [facility] Colostomy present Active Condition [facility] Constipation ([facility] 25901843) Active Condition [facility] Continuous opioid dependence Active Condition [facility] COPD - Chronic Obstructive Pulmonary Disease ([facility] 83562258) Active Condition [facility] Dementia Active Condition [facility] Depression ([facility] 53812577) Active Condition [facility] Diabetes Mellitus Type 2 ([facility]CT 56348239) Active Condition [facility] Ependymoma of spinal cord Active Condition [facility] Hearing Loss ([facility] 84701193) Active Condition [facility] History of Deep Vein Thrombosis ([facility] 858443072) Active Condition [facility] History of pressure injury Active Condition [facility] HTN - Hypertension ([facility] 36464075) Active Condition [facility] Hyperlipidemia ([facility] 20820127) Active Condition [facility] Hyponatremia Active Condition [facility] Long-term current use of anticoagulant Active Condition [facility] Neurogenic Bladder ([facility] 038822062) Active Condition [facility] Neurogenic bowel Active Condition [facility] Osteoporosis ([facility] 64928507) Active Condition [facility] Paraplegia Active Condition [facility] Spasticity Active Condition [facility] Suprapubic urinary catheter in situ Active Condition [facility] Supraventricular tachycardia Active Condition [facility] Tinnitus ([facility] 71610043) Active Condition [facility] Vitamin D Deficiency ([facility] 6788005) Active Condition [facility] Diagnosis: ICD-10-CM Z73.6 Limitation of activities due to disability Active Diagnosis [facility] Diagnosis: ICD-10-CM G82.20 Paraplegia, unspecified Active Diagnosis [facility] Diagnosis: ICD-10-CM Z43.3 Encounter for attention to colostomy Active Diagnosis [facility] Diagnosis: ICD-10-CM Z71.3 Dietary counseling and surveillance Active Diagnosis [facility] Diagnosis: ICD-10-CM F32.A Depression, unspecified Active Diagnosis [facility] Medications Combined list of outpatient medications from Department of Defense and [facility] Affairs facilities.Medications provided include 1) outpatient medications from the last 15 months, and 2) patient-reported medications. Medication Details Route Status Patient Instructions Prescription Expires Prescription Number Last Dispense Date Ordering Provider Order Date Order Qty Source ACETAMINOPH EN 500MG TAB TAKE TWO TABLETS BY MOUTH THREE TIMES A DAY NEEDED ORALLY ACTIVE Jagdish BARRETT N 2022 [facility] AMLODIPINE BESYLATE (AMLODIPINE BESYLATE), 5 MG, TABLET, ORAL, [employer] 1000 ea. BOTTLE Active [id number] 4 2023 90 Pharmac y Data Transac tion Service Facilit y AMLODIPINE BESYLATE (amlodipine besylate), 5 MG, TABLET, ORAL, [employer] [facility], 1000 ea. BOTTLE Active [id number] 4 2023 90 Pharmac y Data Transac tion Service Facilit y AMLODIPINE BESYLATE 2.5MG TAB TAKE TWO TABLETS BY MOUTH EVERY MORNING ORALLY ACTIVE Jagdish BARRETT 2022 [facility] AMOX TR-POTASSIU M CLAVULANATE (AMOXICILLI N/POTASSIUM CLAV), 875-125 MG, TABLET, ORAL, [employer] [facility], 20 ea. BOTTLE Active [id number] 2022 14 Pharmac y Data Transac tion Service Facilit y AMOXICILLIN -CLAVULANAT E POTASS (amoxicilli n/potassium clavulanate ), 875-125 MG, TABLET, ORAL, [facility],, 20 ea. BOTTLE Active [id number] 2023 56 Pharmac y Data Transac tion Service Facilit y ARIPIPRAZOL E (aripiprazo le), 2 MG, TABLET, ORAL, [employer], 500 ea. BOTTLE Active [id number] 2023 180 Pharmac y Data Transac tion Service Facilit y ARIPIPRAZOL E (aripiprazo le), 2 MG, TABLET, ORAL, [employer], 500 ea. BOTTLE Active [id number] 4 2023 180 Pharmac y Data Transac tion Service Facilit y ARIPIPRAZOL E TAB TAKE 2MG BY MOUTH TWICE A DAY ORALLY ACTIVE Jey HANSON 2021 [facility] ATIVAN (LORAZEPAM) , 0.5 MG, TABLET, ORAL, [employer], 100 ea. BOTTLE Cancele d [id number] : 2023 0 Pharmac y Data Transac tion Service Facilit y ATORVASTATI N CA 80MG TAB TAKE ONE-HALF TABLET BY MOUTH EVERY DAY ORALLY ACTIVE Jey HANSON 2021 [facility] ATORVASTATI N CALCIUM (atorvastat in calcium), 40 MG, TABLET, ORAL, [employer] I, 1000 ea. BOTTLE Active [id number] 2023 90 Pharmac y Data Transac tion Service Facilit y BACLOFEN (baclofen), 20 MG, TABLET, ORAL, [facility] 1000 ea. BOTTLE Active [id number] 2023 540 Pharmac y Data Transac tion Service Facilit y BACLOFEN (baclofen), 20 MG, TABLET, ORAL, [facility] 1000 ea. BOTTLE Active [id number] 2023 540 Pharmac y Data Transac tion Service Facilit y BACLOFEN 20MG TAB TAKE TWO TABLETS BY MOUTH THREE TIMES A DAY ORALLY ACTIVE Jagdish BARRETT 2022 [place] [facility] [employer] [facility] BUPROPION HCL 150MG 12HR TAB,SA TAKE ONE TABLET BY MOUTH TWICE A DAY ORALLY ACTIVE Jey HANSON 2021 [facility] BUPROPION HCL SR (bupropion HCl), 150 MG, TAB SR 12H, ORAL, [employer], 60 ea. BOTTLE Active [id number] 2023 180 Pharmac y Data Transac [...] ORAL, [employer] [facility], 50 ea. BOTTLE Active [id number] 2023 70 Pharmac y Data Transac tion Service Facilit y DONEPEZIL HCL (DONEPEZIL HCL), 5 MG, TABLET, ORAL, [employer] 1000 ea. BOTTLE Cancele d [id number] : 2023 0 Pharmac y Data Transac tion Service Facilit y DONEPEZIL HCL (DONEPEZIL HCL), 5 MG, TABLET, ORAL, [employer] 1000 ea. BOTTLE Active [id number] 2023 90 Pharmac y Data Transac tion Service Facilit y DONEPEZIL HCL 10MG TAB TAKE ONE-HALF TABLET BY MOUTH EVERY DAY ORALLY ACTIVE Jey HANSON 2021 [facility] DULOXETINE HCL (duloxetine HCl), 60 MG, CAPSULE DR, ORAL, [employer] 1000 ea. BOTTLE Active [id number] 2023 180 Pharmac y Data Transac tion Service Facilit y DULOXETINE HCL 30MG CAP,EC TAKE 2 CAPSULES BY MOUTH TWICE A DAY ORALLY ACTIVE Jey HANSON 2021 [facility] FAMOTIDINE (famotidine ), 20 MG, TABLET, ORAL, [employer] 1000 ea. BOTTLE Active [id number] 2023 180 Pharmac y Data Transac tion Service Facilit y FAMOTIDINE 20MG TAB TAKE ONE TABLET BY MOUTH TWICE A DAY ORALLY ACTIVE Jey HANSON 2021 [facility] FUROSEMIDE (furosemide ), 40 MG, TABLET, ORAL, [employer], 1000 ea. BOTTLE Active [id number] 2023 180 Pharmac y Data Transac tion Service Facilit y FUROSEMIDE 40MG TAB TAKE ONE TABLET BY MOUTH TWICE A DAY ORALLY ACTIVE Jey HANSON 2021 [facility] GABAPENTIN (gabapentin ), 400 MG, CAPSULE, ORAL, [employer] 500 ea. BOTTLE Active [id number] 2023 270 Pharmac y Data Transac tion Service Facilit y GABAPENTIN 400MG CAP TAKE 1 CAPSULE BY MOUTH THREE TIMES A DAY ORALLY ACTIVE Jey HANSON 2021 [facility] LORAZEPAM (lorazepam) , 0.5 MG, TABLET, ORAL, [employer], 1000 ea. BOTTLE Active [id number] 2023 120 Pharmac y Data Transac tion Service Facilit y LORAZEPAM (lorazepam) , 0.5 MG, TABLET, ORAL, [employer], 1000 ea. BOTTLE Active [id number] 2023 120 Pharmac y Data Transac tion Service Facilit y LORAZEPAM (lorazepam) , 0.5 MG, TABLET, ORAL, [employer], 1000 ea. BOTTLE Active [id number] 2023 120 Pharmac y Data Transac tion Service Facilit y LORAZEPAM (lorazepam) , 0.5 MG, TABLET, ORAL, [employer], 500 ea. BOTTLE Active [id number] 2023 120 Pharmac y Data Transac tion Service Facilit y LORAZEPAM 0.5MG TAB TAKE ONE TABLET BY MOUTH THREE TIMES A DAY AND TAKE TWO TABLETS BY MOUTH AT BEDTIME ORALLY ACTIVE Jagdish BARRETT 2022 [facility] MILK OF MAGNESIA TAKE 30ML BY MOUTH EVERY DAY NEEDED ORALLY ACTIVE Jey HANSON 2021 [facility] MULTIVITAMI NS CAP/TAB TAKE ONE TABLET BY MOUTH EVERY DAY ORALLY ACTIVE Jey HANSON 2021 [facility] NALOXONE HCL 4MG/SPRAY SOLN,SPRAY, NASAL SPRAY 1 DOSE IN ONE NOSTRIL DIRECTED PRN NOSTRI L ACTIVE Jagdish BARRETT N 2022 [facility] OXYCODONE HCL (OXYCODONE HCL), 10 MG, TABLET, ORAL, [employer] 100 ea. BOTTLE Active [id number] 2023 120 Pharmac y Data Transac tion Service Facilit y OXYCODONE HCL (OXYCODONE HCL), 10 MG, TABLET, ORAL, [employer] 100 ea. BOTTLE Active [id number] 2023 120 Pharmac y Data Transac tion Service Facilit y OXYCODONE HCL (OXYCODONE HCL), 10 MG, TABLET, ORAL, [employer] 100 ea. BOTTLE Active [id number] 2023 120 Pharmac y Data Transac tion Service Facilit y OXYCODONE HCL (OXYCODONE HCL), 10 MG, TABLET, ORAL, [employer] 100 ea. BOTTLE Active [id number] 2023 120 Pharmac y Data Transac tion Service Facilit y OXYCODONE HCL (OXYCODONE HCL), 10 MG, TABLET, ORAL, [employer] 100 ea. BOTTLE Active [id number] 2022 120 Pharmac y Data Transac tion Service Facilit y OXYCODONE HCL 5MG TAB TAKE TWO TABLETS BY MOUTH FOUR TIMES A DAY ORALLY ACTIVE Jagdish BARRETT 2022 [facility] POTASSIUM CHLORIDE (potassium chloride), 10 MEQ, TAB ER PRT, ORAL, [employer], 100 ea. BOTTLE Active [id number] 2023 180 Pharmac y Data Transac tion Service Facilit y POTASSIUM CHLORIDE (potassium chloride), 20 MEQ, TAB ER PRT, ORAL, [employer], 100 ea. BOTTLE Active [id number] 2023 90 Pharmac y Data Transac tion Service Facilit y POTASSIUM CHLORIDE 20MEQ TAB,SA (DISPERSIBL E) TAKE ONE TABLET BY MOUTH TWICE A DAY ORALLY ACTIVE Jey HANSON 2021 [facility] SANTYL (collagenas e Clostridium histolyticu m), 250 UNIT/G, OINT. (G), TOPICAL, WHITLOCK&N/UNI LUIS, 30 g TUBE Cancele d [id number] : 2023 0 Pharmac y Data Transac tion Service Facilit y WARFARIN SODIUM (warfarin sodium), 5 MG, TABLET, ORAL, [employer] 1000 ea. BOTTLE Cancele d [id number] : 2022 0 Pharmac y Data Transac tion Service Facilit y WARFARIN SODIUM (WARFARIN SODIUM), 5 MG, TABLET, ORAL, [employer], 1000 ea. BOTTLE Active [id number] 2023 12 Pharmac y Data Transac tion Service Facilit y WARFARIN SODIUM (WARFARIN SODIUM), 5 MG, TABLET, ORAL, [employer], 1000 ea. BOTTLE Active [id number] 2023 40 Pharmac y Data Transac tion Service Facilit y WARFARIN SODIUM (WARFARIN SODIUM), 5 MG, TABLET, ORAL, [employer], 1000 ea. BOTTLE Cancele d [id number] : 2022 0 Pharmac y Data Transac tion Service Facilit y WARFARIN SODIUM (warfarin sodium), 7.5 MG, TABLET, ORAL, [employer], 100 ea. BOTTLE Active [id number] 2023 51 Pharmac y Data Transac tion Service Facilit y WARFARIN SODIUM (warfarin sodium), 7.5 MG, TABLET, ORAL, [employer], 100 ea. BOTTLE Active [id number] 2023 78 Pharmac y Data Transac tion Service Facilit y WARFARIN TAB TAKE 5MG BY MOUTH SUN/THUR S AND TAKE 7.5MG BY MOUTH ALL OTHER DAYS ORALLY ACTIVE Jagdish BARRETT 2022 [facility] Allergies, Adverse Reactions, Alerts Combined list of allergies from Department of [facility] and 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 It does not include entries that were removed or entered in error. Substance Category Reaction Severity Reaction type Status Date Reported Comments Source AMOXICILLIN Propensity to adverse reactions to drug (finding) Eruption active 2 [facility] [employer] [facility] METOLAZONE Propensity to adverse reactions to drug (finding) Itching active 2 [facility] [employer] [facility] MORPHINE Propensity to adverse reactions to drug (finding) Delirium active 2 [facility] [employer] [facility] PIPERACILLIN Propensity to adverse reactions to drug (finding) Eruption active 2 [facility] [employer] [facility] [facility] SULFA DRUGS Propensity to adverse reactions to drug (finding) Eruption active 2 [facility] [employer] [facility] TAZOBACTAM SODIUM Propensity to adverse reactions to drug (finding) Eruption active 2 [facility] [employer] [facility] [facility] Immunizations Combined list of available immunizations from the Department of [facility] and 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 Immunization Series Date Given Administered By Site Reaction Lot Number CVX Code Drug Fortune Teller Status Comments Source INFLUENZA, UNSPECIFIED FORMULATION 2021 [address] [facility] TD (ADULT), 5 LF TETANUS TOXOID, PRESERVATIVE FREE, ADSORBED 2021 113 complet ed [facility] INFLUENZA, UNSPECIFIED FORMULATION 2020 88 complet ed [facility] COVID-19 (PFIZER), MRNA, LNP-S, PF, 30 MCG/0.3 ML DOSE 3 2020 208 complet ed [facility] COVID-19 (PFIZER), MRNA, LNP-S, PF, 30 MCG/0.3 ML DOSE 2 2020 208 complet ed [facility] COVID-19 (PFIZER), MRNA, LNP-S, PF, 30 MCG/0.3 ML DOSE 1 2020 208 complet ed [facility] PNEUMOCOCCAL CONJUGATE PCV 13 2014 133 complet ed [facility] ZOSTER LIVE 2012 121 complet ed [facility] PNEUMOCOCCAL POLYSACCHARID E PPV23 2010 33 complet ed [facility] TDAP 2010 115 complet ed [facility] Results Combined list of recent [...] 2023 03:10 PM Reporting Lab: [facility] [address] Performing Lab: [facility] [address] [place] [employer] CYSTATIN C WITH EGFR CYSTATIN C AND GLOMERULAR FILTRATION RATE BY CYSTATIN C-BASED FORMULA PANEL - SERUM OR PLASMA 53 60 02/13 L Specimen Type: PLASMA No comment entered. Ordering Provider: ANKUSH BOWMAN Report Released Date/Time: Feb 05, 2023 03:10 PM Reporting Lab: [facility] [address] Performing Lab: [facility] [address] [place] [employer] BASIC METABOLI C PANEL+MG CREATININE [MASS/VOLU ME] IN SERUM OR PLASMA 0.7 0.7 - 1.2 02/13 Specimen Type: PLASMA No comment entered. Ordering Provider: ANKUSH BOWMAN Report Released Date/Time: Feb 05, 2023 03:10 PM Reporting Lab: [facility] [address] Performing Lab: [facility] [address] [place] [employer] BASIC METABOLI C PANEL+MG UREA NITROGEN [MASS/VOLU ME] IN SERUM OR PLASMA 15 8 - 26 02/13 Specimen Type: PLASMA No comment entered. Ordering Provider: ANKUSH BOWMAN Report Released Date/Time: Feb 05, 2023 03:10 PM Reporting Lab: [facility] [address] Performing Lab: [facility] [address] [place] [employer] BASIC METABOLI C PANEL+MG GLUCOSE [MASS/VOLU ME] IN SERUM OR PLASMA 140 70 - 100 02/13 H Specimen Type: PLASMA No comment entered. Ordering Provider: ANKUSH BOWMAN Report Released Date/Time: Feb 05, 2023 03:10 PM Reporting Lab: [facility] [address] Performing Lab: [facility] [address] [place] [employer] [facility] BASIC METABOLI C PANEL+MG SODIUM [MOLES/VOL UME] IN SERUM OR PLASMA 135 136 - 145 02/13 L Specimen Type: PLASMA No comment entered. Ordering Provider: ANKUSH BOWMAN Report Released Date/Time: Feb 05, 2023 03:10 PM Reporting Lab: [facility] [address] Performing Lab: [facility] [address] [place] [employer] BASIC METABOLI C PANEL+MG POTASSIUM [MOLES/VOL UME] IN SERUM OR PLASMA 4.0 3.5 - 5.1 02/13 Specimen Type: PLASMA No comment entered. Ordering Provider: ANKUSH BOWMAN Report Released Date/Time: Feb 05, 2023 03:10 PM Reporting Lab: [facility] [address] Performing Lab: [facility] [address] [place] [employer] [facility] BASIC METABOLI C PANEL+MG CHLORIDE [MOLES/VOL UME] IN SERUM OR PLASMA 99 98 - 107 02/13 Specimen Type: PLASMA No comment entered. Ordering Provider: ANKUSH BOWMAN Report Released Date/Time: Feb 05, 2023 03:10 PM Reporting Lab: [facility] [address] Performing Lab: [facility] [address] [place] [employer] [facility] BASIC METABOLI C PANEL+MG CARBON DIOXIDE, TOTAL [MOLES/VOL UME] IN SERUM OR PLASMA 29 22 - 29 02/13 Specimen Type: PLASMA No comment entered. Ordering Provider: ANKUSH BOWMAN Report Released Date/Time: Feb 05, 2023 03:10 PM Reporting Lab: [facility] [address] Performing Lab: [facility] [address] [place] [employer] [facility] BASIC METABOLI C PANEL+MG CALCIUM [MASS/VOLU ME] IN SERUM OR PLASMA 9.2 8.4 - 10.2 02/13 Specimen Type: PLASMA No comment entered. Ordering Provider: ANKUSH BOWMAN Report Released Date/Time: Feb 05, 2023 03:10 PM Reporting Lab: [facility] [address] Performing Lab: [facility] [address] [place] [employer] [facility] [facility] BASIC METABOLI C PANEL+MG MAGNESIUM [MASS/VOLU ME] IN SERUM OR PLASMA 2.0 1.6 - 2.6 02/13 Specimen Type: PLASMA No comment entered. Ordering Provider: ANKUSH BOWMAN Report Released Date/Time: Feb 05, 2023 03:10 PM Reporting Lab: [facility] [address] Performing Lab: [facility] [address] [place] [employer] [facility] BASIC METABOLI C PANEL+MG ANION GAP IN SERUM OR PLASMA 7 5 - 15 02/13 Specimen Type: PLASMA No comment entered. Ordering Provider: ANKUSH BOWMAN Report Released Date/Time: Feb 05, 2023 03:10 PM Reporting Lab: [facility] [address] Performing Lab: [facility] [address] [place] [employer] BASIC METABOLI C PANEL+MG GLOMERULAR FILTRATION RATE/1.73 SQ M.PREDICTE D [VOLUME RATE/AREA] IN SERUM, PLASMA OR BLOOD BY CREATININE -BASED FORMULA (CKD-EPI) >90 60 02/13 Specimen Type: PLASMA No comment entered. Ordering Provider: ANKUSH BOWMAN Report Released Date/Time: Feb 05, 2023 03:10 PM Reporting Lab: [facility] [address] Performing Lab: [facility] [address] [place] [employer] URINALYS IS COLOR OF URINE YELLOW 10/08 Specimen Type: URINE No comment entered. Ordering Provider: ANKUSH BOWMAN Report Released Date/Time: Sep 24, 2022 01:55 PM Reporting Lab: [facility] [address] Performing Lab: [facility] [address] [place] [employer] URINALYS IS SPECIFIC GRAVITY OF URINE 1.023 1.003 - 1.035 10/08 Specimen Type: URINE No comment entered. Ordering Provider: ANKUSH BOWMAN Report Released Date/Time: Sep 24, 2022 01:55 PM Reporting Lab: [facility] [address] Performing Lab: [facility] [address] [place] [employer] URINALYS IS BILIRUBIN. TOTAL [PRESENCE] IN URINE BY TEST STRIP NEGATIVE 10/08 Specimen Type: URINE No comment entered. Ordering Provider: ANKUSH BOWMAN Report Released Date/Time: Sep 24, 2022 01:55 PM Reporting Lab: [facility] [address] Performing Lab: [facility] [address] [place] [employer] [facility] URINALYS IS KETONES [MASS/VOLU ME] IN URINE BY TEST STRIP NEGATIVE 10/08 Specimen Type: URINE No comment entered. Ordering Provider: ANKUSH BOWMAN Report Released Date/Time: Sep 24, 2022 01:55 PM Reporting Lab: [facility] [address] Performing Lab: [facility] [address] [place] [employer] URINALYS IS GLUCOSE [MASS/VOLU ME] IN URINE BY TEST STRIP NEGATIVE <30 - 30 10/08 Specimen Type: URINE No comment entered. Ordering Provider: ANKUSH BOWMAN Report Released Date/Time: Sep 24, 2022 01:55 PM Reporting Lab: [facility] [address] Performing Lab: [facility] [address] [place] [employer] URINALYS IS PROTEIN [MASS/VOLU ME] IN URINE BY TEST STRIP 30 <20 - 20 10/08 Specimen Type: URINE No comment entered. Ordering Provider: ANKUSH BOWMAN Report Released Date/Time: Sep 24, 2022 01:55 PM Reporting Lab: [facility] [address] Performing Lab: [facility] [address] [place] [employer] URINALYS IS PH OF URINE BY TEST STRIP 7.5 5.0 - 8.0 10/08 Specimen Type: URINE No comment entered. Ordering Provider: ANKUSH BOWMAN Report Released Date/Time: Sep 24, 2022 01:55 PM Reporting Lab: [facility] [address] Performing Lab: [facility] [address] [place] [employer] URINALYS IS LEUKOCYTES [#/AREA] IN URINE SEDIMENT BY MICROSCOPY HIGH POWER FIELD >180 0 - 7 10/08 H Specimen Type: URINE No comment entered. Ordering Provider: ANKUSH BOWMAN Report Released Date/Time: Sep 24, 2022 01:55 PM Reporting Lab: [facility] [address] Performing Lab: [facility] [address] [place] [employer] URINALYS IS BACTERIA [PRESENCE] IN URINE SEDIMENT BY LIGHT MICROSCOPY MANY 10/08 Specimen Type: URINE No comment entered. Ordering Provider: ANKUSH BOWMAN Report Released Date/Time: Sep 24, 2022 01:55 PM Reporting Lab: [facility] [address] Performing Lab: [facility] [address] [place] [employer] URINALYS IS ERYTHROCYT ES [#/AREA] IN URINE SEDIMENT BY MICROSCOPY HIGH POWER FIELD 33 0 - 3 10/08 H Specimen Type: URINE No comment entered. Ordering Provider: ANKUSH BOWMAN Report Released Date/Time: Sep 24, 2022 01:55 PM Reporting Lab: [facility] [address] Performing Lab: [facility] [address] [place] [employer] URINALYS IS APPEARANCE OF URINE EX.TURBI D 10/08 Specimen Type: URINE No comment entered. Ordering Provider: ANKUSH BOWMAN Report Released Date/Time: Sep 24, 2022 01:55 PM Reporting Lab: [facility] [address] Performing Lab: [facility] [address] [place] [employer] URINALYS IS EPITHELIAL CELLS.SQUA MOUS [#/AREA] IN URINE SEDIMENT BY MICROSCOPY HIGH POWER FIELD 1 10/08 Specimen Type: URINE No comment entered. Ordering Provider: ANKUSH BOWMAN Report Released Date/Time: Sep 24, 2022 01:55 PM Reporting Lab: [facility] [address] Performing Lab: [facility] [address] [place] [employer] URINALYS IS HEMOGLOBIN [PRESENCE] IN URINE BY TEST STRIP 1+ 10/08 Specimen Type: URINE No comment entered. Ordering Provider: ANKUSH BOWMAN Report Released Date/Time: Sep 24, 2022 01:55 PM Reporting Lab: [facility] [address] Performing Lab: [facility] [address] [place] [employer] URINALYS IS NITRITE [PRESENCE] IN URINE BY TEST STRIP NEGATIVE 10/08 Specimen Type: URINE No comment entered. Ordering Provider: ANKUSH BOWMAN Report Released Date/Time: Sep 24, 2022 01:55 PM Reporting Lab: [facility] [address] Performing Lab: [facility] [address] [place] [employer] URINALYS IS LEUKOCYTE CLUMPS [#/VOLUME] IN URINE BY AUTOMATED COUNT PRESENT 10/08 Specimen Type: URINE No comment entered. Ordering Provider: ANKUSH BOWMAN Report Released Date/Time: Sep 24, 2022 01:55 PM Reporting Lab: [facility] [address] Performing Lab: [facility] [address] [place] [employer] URINALYS IS LEUKOCYTE ESTERASE [PRESENCE] IN URINE BY TEST STRIP 500 10/08 Specimen Type: URINE No comment entered. Ordering Provider: ANKUSH BOWMAN Report Released Date/Time: Sep 24, 2022 01:55 PM Reporting Lab: [facility] [address] Performing Lab: [facility] [address] [place] [employer] ALBUMIN ALBUMIN [MASS/VOLU ME] IN SERUM OR PLASMA 4.2 3.5 - 5.2 10/08 Specimen Type: PLASMA No comment entered. Ordering Provider: ANKUSH BOWMAN Report Released Date/Time: Sep 24, 2022 01:55 PM Reporting Lab: [facility] [address] Performing Lab: [facility] [address] [place] [employer] PRE-ALBU MIN PREALBUMIN [MASS/VOLU ME] IN SERUM OR PLASMA 28.4 14.0 - 45.0 10/08 Specimen Type: SERUM No comment entered. Ordering Provider: ANKUSH BOWMAN Report Released Date/Time: Sep 24, 2022 01:55 PM Reporting Lab: [facility] [address] Performing Lab: [facility] [address] [place] [employer] CBC & DIFF LEUKOCYTES [#/VOLUME] IN BLOOD BY AUTOMATED COUNT 7.32 4.0 - 11.0 10/08 Specimen Type: BLOOD Comment: Automated Differentia l Performed Ordering Provider: ANKUSH BOWMAN Report Released Date/Time: Sep 24, 2022 01:55 PM Reporting Lab: [facility] [address] Performing Lab: [facility] [address] [place] [employer] CBC & DIFF ERYTHROCYT ES [#/VOLUME] IN BLOOD BY AUTOMATED COUNT 4.80 4.6 - 6.2 10/08 Specimen Type: BLOOD Comment: Automated Differentia l Performed Ordering Provider: ANKUSH BOWMAN Report Released Date/Time: Sep 24, 2022 01:55 PM Reporting Lab: [facility] [address] Performing Lab: [facility] [address] [place] [employer] [facility] [facility] CBC & DIFF HEMOGLOBIN [MASS/VOLU ME] IN BLOOD 14.7 13.5 - 17.9 10/08 Specimen Type: BLOOD Comment: Automated Differentia l Performed Ordering Provider: ANKUSH BOWMAN Report Released Date/Time: Sep 24, 2022 01:55 PM Reporting Lab: [facility] [address] Performing Lab: [facility] [address] [place] [employer] CBC & DIFF HEMATOCRIT [VOLUME FRACTION] OF BLOOD BY AUTOMATED COUNT 44.2 41 - 54 10/08 Specimen Type: BLOOD Comment: Automated Differentia l Performed Ordering Provider: ANKUSH BOWMAN Report Released Date/Time: Sep 24, 2022 01:55 PM Reporting Lab: [facility] [address] Performing Lab: [facility] [address] [place] [employer] CBC & DIFF MCV [ENTITIC VOLUME] BY AUTOMATED COUNT 92.1 80 - 100 10/08 Specimen Type: BLOOD Comment: Automated Differentia l Performed Ordering Provider: ANKUSH BOWMAN Report Released Date/Time: Sep 24, 2022 01:55 PM Reporting Lab: [facility] [address] Performing Lab: [facility] [address] [place] [employer] [facility] CBC & DIFF MCH [ENTITIC MASS] BY AUTOMATED COUNT 30.6 27 - 33 10/08 Specimen Type: BLOOD Comment: Automated Differentia l Performed Ordering Provider: ANKUSH BOWMAN Report Released Date/Time: Sep 24, 2022 01:55 PM Reporting Lab: [facility] [address] Performing Lab: [facility] [address] [place] [employer] [facility] CBC & DIFF MCHC [MASS/VOLU ME] BY AUTOMATED COUNT 33.3 32.0 - 37.5 10/08 Specimen Type: BLOOD Comment: Automated Differentia l Performed Ordering Provider: ANKUSH BOWMAN Report Released Date/Time: Sep 24, 2022 01:55 PM Reporting Lab: [facility] [address] Performing Lab: [facility] [address] [place] [employer] [facility] CBC & DIFF PLATELETS [#/VOLUME] IN BLOOD BY AUTOMATED COUNT 144 150 - 400 10/08 L Specimen Type: BLOOD Comment: Automated Differentia l Performed Ordering Provider: ANKUSH BOWMAN Report Released Date/Time: Sep 24, 2022 01:55 PM Reporting Lab: [facility] [address] Performing Lab: [facility] [address] [place] [employer] [facility] CBC & DIFF PLATELET MEAN VOLUME [ENTITIC VOLUME] IN BLOOD BY AUTOMATED COUNT 10.8 7.4 - 10.4 10/08 H Specimen Type: BLOOD Comment: Automated Differentia l Performed Ordering Provider: ANKUSH BOWMAN Report Released Date/Time: Sep 24, 2022 01:55 PM Reporting Lab: [facility] [address] Performing Lab: [facility] [address] [place] [employer] [facility] CBC & DIFF NEUTROPHIL S/100 LEUKOCYTES IN BLOOD BY MANUAL COUNT 55.5 10/08 Specimen Type: BLOOD Comment: Automated Differentia l Performed Ordering Provider: ANKUSH BOWMAN Report Released Date/Time: Sep 24, 2022 01:55 PM Reporting Lab: [facility] [address] Performing Lab: [facility] [address] [place] [employer] [facility] CBC & DIFF LYMPHOCYTE S/100 LEUKOCYTES IN BLOOD BY MANUAL COUNT 31.4 10/08 Specimen Type: BLOOD Comment: Automated Differentia l Performed Ordering Provider: ANKUSH BOWMAN Report Released Date/Time: Sep 24, 2022 01:55 PM Reporting Lab: [facility] [address] Performing Lab: [facility] [address] [place] [employer] [facility] CBC & DIFF MONOCYTES/ 100 LEUKOCYTES IN BLOOD BY AUTOMATED COUNT 10.2 10/08 Specimen Type: BLOOD Comment: Automated Differentia l Performed Ordering Provider: ANKUSH BOWMAN Report Released Date/Time: Sep 24, 2022 01:55 PM Reporting Lab: [facility] [address] Performing Lab: [facility] [address] [place] [employer] [facility] CBC & DIFF EOSINOPHIL S/100 LEUKOCYTES IN BLOOD BY AUTOMATED COUNT 2.2 10/08 Specimen Type: BLOOD Comment: Automated Differentia l Performed Ordering Provider: ANKUSH BOWMAN Report Released Date/Time: Sep 24, 2022 01:55 PM Reporting Lab: [facility] [address] Performing Lab: [facility] [address] [place] [employer] [facility] CBC & DIFF BASOPHILS/ 100 LEUKOCYTES IN BLOOD BY MANUAL COUNT 0.4 10/08 Specimen Type: BLOOD Comment: Automated Differentia l Performed Ordering Provider: ANKUSH BOWMAN Report Released Date/Time: Sep 24, 2022 01:55 PM Reporting Lab: [facility] [address] Performing Lab: [facility] [address] [place] [employer] [facility] CBC & DIFF ERYTHROCYT E DISTRIBUTI ON WIDTH [RATIO] BY AUTOMATED COUNT 15.9 11.5 - 14.5 10/08 H Specimen Type: BLOOD Comment: Automated Differentia l Performed Ordering Provider: ANKUSH BOWMAN Report Released Date/Time: Sep 24, 2022 01:55 PM Reporting Lab: [facility] [address] Performing Lab: [facility] [address] [place] [employer] [facility] CBC & DIFF LYMPHOCYTE S [#/VOLUME] IN BLOOD BY AUTOMATED COUNT 2.30 1.0 - 4.0 10/08 Specimen Type: BLOOD Comment: Automated Differentia l Performed Ordering Provider: ANKUSH BOWMAN Report Released Date/Time: Sep 24, 2022 01:55 PM Reporting Lab: [facility] [address] Performing Lab: [facility] [address] [place] [employer] [facility] CBC & DIFF MONOCYTES [#/VOLUME] IN BLOOD BY AUTOMATED COUNT 0.75 0.1 - 1.0 10/08 Specimen Type: BLOOD Comment: Automated Differentia l Performed Ordering Provider: ANKUSH BOWMAN Report Released Date/Time: Sep 24, 2022 01:55 PM Reporting Lab: [facility] [address] Performing Lab: [facility] [address] [place] [employer] [facility] CBC & DIFF NEUTROPHIL S [#/VOLUME] IN BLOOD BY AUTOMATED COUNT 4.06 2.0 - 7.7 10/08 Specimen Type: BLOOD Comment: Automated Differentia l Performed Ordering Provider: ANKUSH OBWMAN Report Released Date/Time: Sep 24, 2022 01:55 PM Reporting Lab: [facility] [address] Performing Lab: [facility] [address] [place] [employer] [facility] CBC & DIFF EOSINOPHIL S [#/VOLUME] IN BLOOD BY AUTOMATED COUNT 0.16 0 - 0.5 10/08 Specimen Type: BLOOD Comment: Automated Differentia l Performed Ordering Provider: ANKUSH BOWMAN Report Released Date/Time: Sep 24, 2022 01:55 PM Reporting Lab: [facility] [address] Performing Lab: [facility] [address] [place] [employer] [facility] CBC & DIFF BASOPHILS [#/VOLUME] IN BLOOD BY AUTOMATED COUNT 0.03 0 - 0.2 10/08 Specimen Type: BLOOD Comment: Automated Differentia l Performed Ordering Provider: ANKUSH BOWMAN Report Released Date/Time: Sep 24, 2022 01:55 PM Reporting Lab: [facility] [address] Performing Lab: [facility] [address] [place] [employer] [facility] CBC & DIFF IG(META,MY MALACHI,PRO) 0.3 10/08 Specimen Type: BLOOD Comment: Automated Differentia l Performed Ordering Provider: ANKUSH BOWMAN Report Released Date/Time: Sep 24, 2022 01:55 PM Reporting Lab: [facility] [address] Performing Lab: [facility] [address] [place] [employer] [facility] CBC & DIFF IMMATURE GRANULOCYT ES [PRESENCE] IN BLOOD BY AUTOMATED COUNT 0.02 0 - 0.1 10/08 Specimen Type: BLOOD Comment: Automated Differentia l Performed Ordering Provider: ANKUSH BOWMAN Report Released Date/Time: Sep 24, 2022 01:55 PM Reporting Lab: [facility] [address] Performing Lab: [facility] [address] [place] [employer] [facility] [facility] COMPREHE NSIVE METABOLI C PANEL+MG CREATININE [MASS/VOLU ME] IN SERUM OR PLASMA 0.7 0.7 - 1.2 10/08 Specimen Type: PLASMA No comment entered. Ordering Provider: ANKUSH BOWMAN Report Released Date/Time: Sep 24, 2022 01:55 PM Reporting Lab: [facility] [address] Performing Lab: [facility] [address] [place] [employer] [facility] COMPREHE NSIVE METABOLI C PANEL+MG UREA NITROGEN [MASS/VOLU ME] IN SERUM OR PLASMA 16 8 - 26 11/28 /2022 Specimen Type: PLASMA No comment entered. Ordering Provider: ANKUSH BOWMAN Report Released Date/Time: Sep 24, 2022 01:55 PM Reporting Lab: [facility] [address] Performing Lab: [facility] [address] [place] [employer] [facility] COMPREHE NSIVE METABOLI C PANEL+MG GLUCOSE [MASS/VOLU ME] IN SERUM OR PLASMA 94 70 - 100 10/08 Specimen Type: PLASMA No comment entered. Ordering Provider: ANKUSH BOWMAN Report Released Date/Time: Sep 24, 2022 01:55 PM Reporting Lab: [facility] [address] Performing Lab: [facility] [address] [place] [employer] COMPREHE NSIVE METABOLI C PANEL+MG SODIUM [MOLES/VOL UME] IN SERUM OR PLASMA 138 136 - 145 10/08 Specimen Type: PLASMA No comment entered. Ordering Provider: ANKUSH BOWMAN Report Released Date/Time: Sep 24, 2022 01:55 PM Reporting Lab: [facility] [address] Performing Lab: [facility] [address] [place] [employer] COMPREHE NSIVE METABOLI C PANEL+MG POTASSIUM [MOLES/VOL UME] IN SERUM OR PLASMA 3.9 3.5 - 5.1 10/08 Specimen Type: PLASMA No comment entered. Ordering Provider: ANKUSH BOWMAN Report Released Date/Time: Sep 24, 2022 01:55 PM Reporting Lab: [facility] [address] Performing Lab: [facility] [address] [place] [employer] [facility] [facility] COMPREHE NSIVE METABOLI C PANEL+MG CHLORIDE [MOLES/VOL UME] IN SERUM OR PLASMA 101 98 - 107 10/08 Specimen Type: PLASMA No comment entered. Ordering Provider: ANKUSH BOWMAN Report Released Date/Time: Sep 24, 2022 01:55 PM Reporting Lab: [facility] [address] Performing Lab: [facility] [address] [place] [employer] [facility] [facility] COMPREHE NSIVE METABOLI C PANEL+MG CARBON DIOXIDE, TOTAL [MOLES/VOL UME] IN SERUM OR PLASMA - 10/08 Specimen Type: PLASMA No comment entered. Ordering Provider: ANKUSH BOWMAN Report Released Date/Time: Sep 24, 2022 01:55 PM Reporting Lab: [facility] [address] Performing Lab: [facility] [address] [place] [employer] COMPREHE NSIVE METABOLI C PANEL+MG CALCIUM [MASS/VOLU ME] IN SERUM OR PLASMA 9.7 8.4 - 10.2 10/08 Specimen Type: PLASMA No comment entered. Ordering Provider: ANKUSH BOWMAN Report Released Date/Time: Sep 24, 2022 01:55 PM Reporting Lab: [facility] [address] Performing Lab: [facility] [address] [place] [employer] [facility] COMPREHE NSIVE METABOLI C PANEL+MG PROTEIN [MASS/VOLU ME] IN SERUM OR PLASMA 7.6 6.0 - 8.3 10/08 Specimen Type: PLASMA No comment entered. Ordering Provider: ANKUSH BOWMAN Report Released Date/Time: Sep 24, 2022 01:55 PM Reporting Lab: [facility] [address] Performing Lab: [facility] [address] [place] [employer] [facility] COMPREHE NSIVE METABOLI C PANEL+MG ALBUMIN [MASS/VOLU ME] IN SERUM OR PLASMA 4.2 3.5 - 5.2 10/08 Specimen Type: PLASMA No comment entered. Ordering Provider: ANKUSH BOWMAN Report Released Date/Time: Sep 24, 2022 01:55 PM Reporting Lab: [facility] [address] Performing Lab: [facility] [address] [place] [employer] COMPREHE NSIVE METABOLI C PANEL+MG BILIRUBIN. TOTAL [MASS/VOLU ME] IN SERUM OR PLASMA 0.6 0.2 - 1.2 10/08 Specimen Type: PLASMA No comment entered. Ordering Provider: ANKUSH BOWMAN Report Released Date/Time: Sep 24, 2022 01:55 PM Reporting Lab: [facility] [address] Performing Lab: [facility] [address] [place] [employer] COMPREHE NSIVE METABOLI C PANEL+MG MAGNESIUM [MASS/VOLU ME] IN SERUM OR PLASMA 2.1 1.6 - 2.6 10/08 Specimen Type: PLASMA No comment entered. Ordering Provider: ANKUSH BOWMAN Report Released Date/Time: Sep 24, 2022 01:55 PM Reporting Lab: [facility] [address] Performing Lab: [facility] [address] [place] [employer] COMPREHE NSIVE METABOLI C PANEL+MG ANION GAP IN SERUM OR PLASMA 9 5 - 15 10/08 Specimen Type: PLASMA No comment entered. Ordering Provider: ANKUSH BOWMAN Report Released Date/Time: Sep 24, 2022 01:55 PM Reporting Lab: [facility] [address] Performing Lab: [facility] [address] [place] [employer] COMPREHE NSIVE METABOLI C PANEL+MG ALKALINE PHOSPHATAS E [ENZYMATIC ACTIVITY/V OLUME] IN SERUM OR PLASMA 96 40 - 150 10/08 Specimen Type: PLASMA No comment entered. Ordering Provider: ANKUSH BOWMAN Report Released Date/Time: Sep 24, 2022 01:55 PM Reporting Lab: [facility] [address] Performing Lab: [facility] [address] [place] [employer] COMPREHE NSIVE METABOLI C PANEL+MG ALANINE AMINOTRANS FERASE [ENZYMATIC ACTIVITY/V OLUME] IN SERUM OR PLASMA 29 <55 - 55 10/08 Specimen Type: PLASMA No comment entered. Ordering Provider: ANKUSH BOWMAN Report Released Date/Time: Sep 24, 2022 01:55 PM Reporting Lab: [facility] [address] Performing Lab: [facility] [address] [place] [employer] COMPREHE NSIVE METABOLI C PANEL+MG ASPARTATE AMINOTRANS FERASE [ENZYMATIC ACTIVITY/V OLUME] IN SERUM OR PLASMA 22 <34 - 34 10/08 Specimen Type: PLASMA No comment entered. Ordering Provider: ANKUSH BOWMAN Report Released Date/Time: Sep 24, 2022 01:55 PM Reporting Lab: [facility] [address] Performing Lab: [facility] [address] [place] [employer] [facility] [facility] COMPREHE NSIVE METABOLI C PANEL+MG GLOMERULAR FILTRATION RATE/1.73 SQ M.PREDICTE D [VOLUME RATE/AREA] IN SERUM, PLASMA OR BLOOD BY CREATININE -BASED FORMULA (CKD-EPI) >90 60 10/08 Specimen Type: PLASMA No comment entered. Ordering Provider: ANKUSH BOWMAN Report Released Date/Time: Sep 24, 2022 01:55 PM Reporting Lab: [facility] [address] Performing Lab: [facility] [address] [place] [employer] [facility] [facility] CYSTATIN C WITH EGFR CYSTATIN C [MASS/VOLU ME] IN SERUM OR PLASMA 1.38 0.51 - 1.05 10/08 H Specimen Type: PLASMA No comment entered. Ordering Provider: ANKUSH BOWMAN Report Released Date/Time: Sep 24, 2022 01:55 PM Reporting Lab: [facility] [address] Performing Lab: [facility] [address] [place] [employer] [facility] [facility] CYSTATIN C WITH EGFR CYSTATIN C AND GLOMERULAR FILTRATION RATE BY CYSTATIN-B ASED FORMULA PANEL - SERUM OR PLASMA 48 60 10/08 L Specimen Type: PLASMA No comment entered. Ordering Provider: ANKUSH BOWMAN Report Released Date/Time: Sep 24, 2022 01:55 PM Reporting Lab: [facility] [address] Performing Lab: [facility] [address] [place] [employer] [facility] [facility] VIT D 25-OH,TO ZAMZAM 25-HYDROXY VITAMIN D3 [MASS/VOLU ME] IN SERUM OR PLASMA 54 12 - 50 10/08 H Specimen Type: SERUM No comment entered. Ordering Provider: ANKUSH BOWMAN Report Released Date/Time: Sep 24, 2022 01:55 PM Reporting Lab: [facility] [address] Performing Lab: [facility] [address] [place] [facility] CBC LEUKOCYTES [#/VOLUME] IN BLOOD BY AUTOMATED COUNT 6.27 4.0 - 11.0 05/28 Specimen Type: BLOOD No comment entered. Ordering Provider: GERMANIA HANSON Report Released Date/Time: May 28, 2022 03:06 PM Reporting Lab: [facility] [address] Performing Lab: [facility] [address] [facility] CBC ERYTHROCYT ES [#/VOLUME] IN BLOOD BY AUTOMATED COUNT 4.43 4.6 - 6.2 05/28 L Specimen Type: BLOOD No comment entered. Ordering Provider: GERMANIA HANSON Report Released Date/Time: May 28, 2022 03:06 PM Reporting Lab: [facility] [address] Performing Lab: [facility] [address] [facility] CBC HEMOGLOBIN [MASS/VOLU ME] IN BLOOD 12.9 13.5 - 17.9 05/28 L Specimen Type: BLOOD No comment entered. Ordering Provider: GERMANIA HANSON Report Released Date/Time: May 28, 2022 03:06 PM Reporting Lab: [facility] [address] Performing Lab: [facility] [address] [facility] CBC HEMATOCRIT [VOLUME FRACTION] OF BLOOD BY AUTOMATED COUNT 40.2 41 - 54 05/28 L Specimen Type: BLOOD No comment entered. Ordering Provider: GERMANIA HANSON Report Released Date/Time: May 28, 2022 03:06 PM Reporting Lab: [facility] [address] Performing Lab: [facility] [address] [facility] CBC MCV [ENTITIC VOLUME] BY AUTOMATED COUNT 90.7 80 - 100 05/28 Specimen Type: BLOOD No comment entered. Ordering Provider: GERMANIA HANSON Report Released Date/Time: May 28, 2022 03:06 PM Reporting Lab: [facility] [address] Performing Lab: [facility] [address] [facility] CBC MCH [ENTITIC MASS] BY AUTOMATED COUNT 29.1 27 - 33 05/28 Specimen Type: BLOOD No comment entered. Ordering Provider: GERMANIA HANSON Report Released Date/Time: May 28, 2022 03:06 PM Reporting Lab: [facility] [address] Performing Lab: [facility] [address] [facility] CBC MCHC [MASS/VOLU ME] BY AUTOMATED COUNT 32.1 32.0 - 37.5 05/28 Specimen Type: BLOOD No comment entered. Ordering Provider: GERMANIA HANSON Report Released Date/Time: May 28, 2022 03:06 PM Reporting Lab: [facility] [address] Performing Lab: [facility] [address] [facility] CBC PLATELETS [#/VOLUME] IN BLOOD BY AUTOMATED COUNT 183 150 - 400 05/28 Specimen Type: BLOOD No comment entered. Ordering Provider: GERMANIA HANSON Report Released Date/Time: May 28, 2022 03:06 PM Reporting Lab: [facility] [address] Performing Lab: [facility] [address] [facility] CBC PLATELET MEAN VOLUME [ENTITIC VOLUME] IN BLOOD BY AUTOMATED COUNT 10.6 7.4 - 10.4 05/28 H Specimen Type: BLOOD No comment entered. Ordering Provider: GERMANIA HANSON Report Released Date/Time: May 28, 2022 03:06 PM Reporting Lab: [facility] [address] Performing Lab: [facility] [address] [facility] CBC ERYTHROCYT E DISTRIBUTI ON WIDTH [RATIO] BY AUTOMATED COUNT 13.5 11.5 - 14.5 05/28 Specimen Type: BLOOD No comment entered. Ordering Provider: GERMANIA HANSON Report Released Date/Time: May 28, 2022 03:06 PM Reporting Lab: [facility] [address] Performing Lab: [facility] [address] [facility] Encounters Combined list of: 1) Encounters from Department of Veterans Affairs facilities going back up to thelast 18 months. 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 Location Location Details Encounter Type Encounter Number Reason For Visit Attending Provider ADM Date DC Date Status Disposition Source [facility] Outpatient Encounter [id number] 09/20 [facility] [facility] OFFICE O/P EST MINIMAL PROB [id number] Diagnos is: ICD-10- CM G82.20 Paraple mary kay, unspeci fied
Jey PATTON V 10/08 [facility] ASSISTIVE TECHNOLOGY ASSESS [id number] Diagnos is: ICD-10- CM Z73.6 Limitat ion of activit ies due to disabil ity<br/ > BOUSLOG,RY AN P 10/08 [facility] Outpatient Encounter [id number] 10/09 [facility] Outpatient Encounter [id number] 10/11 [facility] HC PRO PHONE CALL 5-10 MIN [id number] Diagnos is: ICD-10- CM Z73.6 Limitat ion of activit ies due to disabil ity<br/ > AVE HALEY 12/13 [facility] Outpatient Encounter [id number] 01/08 [facility] HC PRO PHONE CALL 21-30 MIN [id number] Diagnos is: ICD-10- CM G82.20 Paraple mary kay, unspeci fied
Hever CASTRO 01/08 [facility] Outpatient Encounter [id number] 01/09 [facility] [facility] DIABETIC MANAGEMENT PROGRAM, [id number] Diagnos is: ICD-10- CM G82.20 Paraple mary kay, unspeci fied
SERJIOMIGUEL ANGELPool Dubon 01/30 [facility] Outpatient Encounter [id number] 02/05 [facility] [employer] [facility] MTMS BY PHARM ADDL 15 MIN [id number] Diagnos is: ICD-10- CM G82.20 Paraple mary kay, unspeci fied
MANPREET BARRETT 02/05 [facility] OT EVAL LOW COMPLEX 30 MIN [id number] Diagnos is: ICD-10- CM Z73.6 Limitat ion of activit ies due to disabil ity<br/ > Bryn PARDO 02/05 [facility] OFF/OP EST MAY X REQ PHY/QHP [id number] Diagnos is: ICD-10- CM G82.20 Paraple mary kay, unspeci fied
JOSUÉ ZAMORA 02/05 [facility] PSYCH DIAGNOSTIC EVALUATION [id number] Diagnos is: ICD-10- CM F32.A Depress ion, unspeci fied
BINU GAMEZ 02/05 [facility] OFFICE O/P EST MOD 30-39 MIN [id number] Diagnos is: ICD-10- CM G82.20 Paraple mary kay, unspeci fied
ME LOGAN BOWMAN 02/05 [facility] PSYCH DIAGNOSTIC EVALUATION [id number] Diagnos is: ICD-10- CM G82.20 Paraple mary kay, unspeci fied
JENNIFFER,MAHI DESIRE Miranda 02/05 [facility] [place] [id number] Diagnos is: ICD-10- CM Z71.3 Dietary clinical counselor ing and surveil payal<b r/> Katia ARCHER 02/05 [facility] [place] [id number] Diagnos is: ICD-10- CM Z43.3 Encount er for attenti on to colosto my
VIOLA YOON 02/08 [facility] OFFICE O/P EST HI 40-54 MIN [id number] Diagnos is: ICD-10- CM G82.20 Paraple mary kay, unspeci fied
ME LOGAN BOWMAN 02/13 [facility] WHEELCHAIR MNGMENT TRAINING [id number] Diagnos is: ICD-10- CM Z73.6 Limitat ion of activit ies due to disabil ity<br/ > BOUSLOG,RY AN P 02/13 [facility] Outpatient Encounter [id number] 02/19 [facility] HC PRO PHONE CALL 11-20 MIN [id number] Diagnos is: ICD-10- CM Z73.6 Limitat ion of activit ies due to disabil ity<br/ > BOUSLOG,RY AN P 04/23 [facility] Outpatient Encounter [id number] 04/24 [facility] Outpatient Encounter [id number] 05/24 [facility] OFF/OP EST MAY X REQ PHY/QHP [id number] Diagnos is: ICD-10- CM G82.20 Paraple mary kya, unspeci fied
VIOLA YOON NDA 05/28 [facility] WHEELCHAIR MNGMENT TRAINING [id number] Diagnos is: ICD-10- CM Z73.6 Limitat ion of activit ies due to disabil ity<br/ > BOUSLOG,RY AN P 06/10 [facility] Outpatient Encounter [id number] 10/28 [facility] Outpatient Encounter [id number] 11/20 [facility] Social History Combined list of available smoking, tobacco, and other social history from 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 Social History Type Response Date Comment [facility]ly [facility] e Tobacco smoking status [facility] [place] NEVER USED 05/28/20 22 SADAF TREVINO [facility] This section is an empty social history section. DoD Advance Directives List of completed, amended, or rescinded Advance Directives on record at Department of 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 An actual copy of the Directive is not included. Date Advance Directive Provider Source 02/05/2023 ADVANCE DIRECTIVE DISCUSSION [facility]
--- OUTSIDE RECORDS SUMMARY | 2024-03-23 12:49 | XMS_ITS | Encounter Summary ---
Author Name Unknown Organization [facility] Address [address], [place] [address] Care Team Providers Care Top Screw Name Role Phone Franklin Squires MD Primary Care Provider Encounter Details Date Type Department Care Team ([facility] st Contact Info) Description 02/09/2016 Correspondence [facility] 401 NeuroSurgery 401 [facility] [place], [place] [id number] Jodi Aguila PA-C [address] [place] [address] PATIENT LIFT PRESCRIPTION Social History Tobacco Use [...] filedocumented in this encounter Care Teams Top Screw Relationship Specialty Start Date End Date Franklin Squires MD 100 [facility] [place] [address] PCP - General Family Practice 03/08/16 documented as of this encounter
--- OUTSIDE RECORDS SUMMARY | 2024-03-23 12:49 | XMS_ITS | Encounter Summary ---
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
--- OUTSIDE RECORDS SUMMARY | 2024-03-23 12:49 | XMS_ITS | Encounter Summary ---
Author Name Unknown Organization [facility] Address [address] [address] Care Team Providers Care Engineering Librarian Name Role Phone Franklin Squires MD Primary Care Provider [phone] Encounter Details Date Type Department Care Team (Late st Contact Info) Description 03/11/2014 [facility]ence [facility] 401 Interventional Pain Management 401 [facility] [place] [address] Zelalem Cohen, DO [address] [place] [address] EMPI Social History Tobacco Use Types Packs/Day [...] on filedocumented in this encounter Care Teams Engineering Librarian Relationship Specialty Start Date End Date Franklin Squires MD 100 [facility] [place] [address] PCP - General Family Practice 03/08/16 documented as of this encounter
--- OUTSIDE RECORDS SUMMARY | 2024-03-23 12:49 | XMS_ITS | Encounter Summary ---
Author Name Unknown Organization [facility] Address [address] [address] Care Team Providers Care Paper Supervisor Name Role Phone Franklin Squires MD Primary Care Provider Encounter Details Date Type Department Care Team (Late st Contact Info) Description 08/20/2014 Outside Hospital External to [facility] Social History Tobacco Use Types [...] filedocumented in this encounter Care Teams Paper Supervisor Relationship Specialty Start Date End Date Franklin Squires MD [facility] [address] PCP - General Family Practice 03/08/16 documented as of this encounter
--- OUTSIDE RECORDS SUMMARY | 2024-03-23 12:49 | XMS_ITS | Encounter Summary ---
Author Name Unknown Organization [facility] Address [address] [address] Care Team Providers Care Patient Scheduler Name Role Phone Franklin Squires MD Primary Care Provider Encounter Details Date Type Department Care Team (Late st Contact Info) Description 04/20/[address] [address] Radiology, Provider MRI SAFETY SHEET AND COMPATIBILITY [...] filedocumented in this encounter Care Teams Patient Scheduler Relationship Specialty Start Date End Date Franklin Squires MD 100 [facility] [place] [address] PCP - General Family Practice 03/08/16 documented as of this encounter
--- OUTSIDE RECORDS SUMMARY | 2024-03-23 12:49 | XMS_ITS | Encounter Summary ---
Author Name Unknown Organization [facility] Address [address], [place] [address] Care Team Providers Care Machining Department Supervisor Name Role Phone Franklin Squires MD Primary Care Provider Encounter Details Date Type Department Care Team ([facility] st Contact Info) Description 07/08/2015 Correspondence [facility] Physical Therapy [address] [place] [address] Trudi Raymundo, PT [address] [place] [address] ADDENDUM FOR LETTER OF MEDICAL NECESSITY Social [...] on filedocumented in this encounter Care Teams Machining Department Supervisor Relationship Specialty Start Date End Date Franklin Squires MD 100 [facility] [address] PCP - General Family Practice 03/08/16 documented as of this encounter
--- OUTSIDE RECORDS SUMMARY | 2024-03-23 12:49 | XMS_ITS | Encounter Summary ---
Author Name Unknown Organization [facility] Address [address] [address] Care Team Providers Care Chief Console Operator Name Role Phone Franklin Squires MD Primary Care Provider Encounter Details Date Type Department Care Team (Late st Contact Info) Description 12/16/2013 Correspondence [facility] Radiology [address] [place] [address] Radiology, Provider MRI SAFETY SHEET AND COMPATIBILITY [...] Radiology, Provider - 12/16/2013 12:00 AM CST COOK documented in this encounter Plan of Treatment Not on file documented as of this encounter Visit Diagnoses Not on filedocumented in this encounter Care Teams Chief Console Operator Relationship Specialty Start Date End Date Franklin Squires MD 100 [facility] [place] [address] PCP - General Family Practice 03/08/16 documented as of this encounter
--- OUTSIDE RECORDS SUMMARY | 2024-03-23 12:49 | XMS_ITS | Clinical Summary ---
Author Name Unknown Organization [facility] Address [address] [place] [address] Care Team Providers Care Test Center Manager Name Role Phone Franklin Squires MD Primary Care Provider [phone] Source Comments You are receiving this document [...] for each transition of care or referral. 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 use of anticoagulant therapy 0 [...] Comments Blood Pressure 120/63 01/18/2022 12:59 PM EAP COUNSELOR Pulse 87 01/18/2022 12:59 PM EAP COUNSELOR Temperature 36.3 ??C (97.4 ??F) 01/18/2022 12:59 [...] this topic Medical Devices Implanted Type Area Group Contract Analyst Device Identifier Shelf Expiration Date Model / Serial / Lot [id number] 4ml Tisseel Explanted:([place] ntity not on file) BIOLOGIC N/A: NECK Lynne Fenwall 09/10/2011 [id number] / [id number] / [id number] Description:posterior Cath Intrathecal Indura - [id number] Implanted:Qty: 1 on 05/09/2010 at [facility] DEVICE Right: LUMBAR SPINE [employer] 01/18/2012 8709 / N/A / [id number] 5 Cath Intrathecal Indura - [id number] Implanted:Qty: 1 on 05/29/2010 at [facility] DEVICE [employer] 8709 / / Scr Indira Conic 7.3x80 - [id number] Implanted:Qty: 1 on 03/13/2011 at [facility] DEVICE Right: FEMUR DISTAL [employer] 02.207.28 0 / NONE / NONE Plt Lcp Cndl Rt 4.5x170 6h - [id number] Implanted:Qty: 1 on 03/13/2011 at [facility] DEVICE Right: FEMUR DISTAL Synthes [place] 222.656 / NONE / NONE Description:6 hole 170mm rig ht 4.5mm lcp condylar plate Scr Didier Ss Sftp 4.5x40 - [id number] Implanted:Qty: 1 on 03/13/2011 at [facility] DEVICE Left: FEMUR DISTAL [employer] 214.840 / NONE / NONE Scr Didier Ss Sftp 4.5x50 - [id number] Implanted:Qty: 1 on 03/13/2011 at [facility] DEVICE Left: FEMUR DISTAL [employer] 214.850 / NONE / NONE Scr Indira Lk 5.0x80 - [id number] Implanted:Qty: 2 on 03/13/2011 at [facility] DEVICE Left: FEMUR DISTAL [employer] 02.205.08 0 / NONE / NONE Scr Indira Lk 5.0x85 - [id number] Implanted:Qty: 2 on 03/13/2011 at [facility] DEVICE Left: FEMUR DISTAL [employer] 02.205.08 5 / NONE / NONE Scr Lk Sftp T25 5.0x50 - [id number] Implanted:Qty: 1 on 03/13/2011 at [facility] DEVICE Left: FEMUR DISTAL [employer] 212.219 / NONE / NONE Scr Lk Sftp T25 5.0x60 - [id number] Implanted:Qty: 1 on 03/13/2011 at [facility] DEVICE Left: FEMUR DISTAL [employer] 212.221 / NONE / NONE Scr Indira Conic 7.3x85 - [id number] Implanted:Qty: 1 on 03/13/2011 at [facility] DEVICE Left: FEMUR DISTAL [employer] 02.207.28 5 / NONE / NONE Plt Lcp Cndl Lt 4.5x170 6h - [id number] Implanted:Qty: 1 on 03/13/2011 at [facility] DEVICE Left: FEMUR DISTAL [employer] 222.657 / NONE / NONE Description:6 hole 170mmleng th left 4.5mm lcp condylar plate. Scr Didier Sftp 3.5x60 F-Thrd - [id number] Implanted:Qty: 1 on 03/13/2011 at [facility] DEVICE Left: TIBIA PROXIMAL [employer] [place] 204.860 / NONE / NONE Scr Star Lk Sftp 3.5x32 - [id number] Implanted:Qty: 1 on 03/13/2011 at [facility] DEVICE Left: TIBIA PROXIMAL [employer] [place] 212.112 / NONE / NONE Scr Star Lk Sftp 3.5x55 - [id number] Implanted:Qty: 2 on 03/13/2011 at [facility] DEVICE Left: TIBIA PROXIMAL [employer] [place] 212.123 / NONE / NONE Scr Star Lk Sftp 3.5x60 - [id number] Implanted:Qty: 2 on 03/13/2011 at [facility] DEVICE Left: TIBIA PROXIMAL [employer] [place] 212.124 / NONE / NONE Plt Lcp M/Prox Lt 3.5x94 4h - [id number] Implanted:Qty: 1 on 03/13/2011 at [facility] DEVICE Left: TIBIA PROXIMAL [employer] [place] 239.955 / NONE / NONE Scr Didier Ss Sftp 4.5x36 - [id number] Implanted:Qty: 1 on 03/13/2011 at [facility] DEVICE Right: FEMUR DISTAL [employer] [place] 214.836 / NONE / NONE Scr Didier Ss Sftp 4.5x44 - [id number] Implanted:Qty: 1 on 03/13/2011 at [facility] DEVICE Right: FEMUR DISTAL [employer] [place] 214.844 / NONE / NONE Scr Indria Lk 5.0x75 - [id number] Implanted:Qty: 1 on 03/13/2011 at [facility] DEVICE Right: FEMUR DISTAL [employer] [place] 02.205.07 5 / NONE / NONE Scr Indira Lk 5.0x85 - [id number] Implanted:Qty: 2 on 03/13/2011 at [facility] DEVICE Right: FEMUR DISTAL [employer] [place] 02.205.08 5 / NONE / NONE Scr Lk Sftp T25 5.0x44 - [id number] Implanted:Qty: 1 on 03/13/2011 at [facility] DEVICE Right: FEMUR DISTAL [employer] [place] 212.216 / NONE / NONE Scr Lk Sftp T25 5.0x65 - [id number] Implanted:Qty: 1 on 03/13/2011 at [facility] DEVICE Right: FEMUR DISTAL [employer] [place] 212.222 / NONE / NONE Plt Lp T Ti Str 4h - [id number] Implanted:Qty: 3 on 07/28/2014 by Cooper Shelley MD at [facility] DEVICE Right: SKULL [employer]ynthes [place] 421.504 / / Scr Matrix Sfdr 4mm - [id number] Implanted:Qty: 6 on 07/28/2014 by Cooper Shelley MD at [facility] DEVICE Right: SKULL [employer] [place] 04.503.10 4.01 / / Lead Linear 3-4 8 Contact 50cm - [id number] Implanted:Qty: 1 on 03/08/2016 by Zelalem Cohen DO at [facility] DEVICE N/A: OTHER-SEE DESCRIPTION [facility] 09/10/2017 [id number] 2500 / / [id number] Description:LUMBAR Lead Linear 3-4 8 Contact 50cm - [id number] Implanted:Qty: 1 on 03/08/2016 by Zelalem Cohen DO at [facility] DEVICE N/A: OTHER-SEE DESCRIPTION [facility] 09/10/2017 [id number] 2500 / / [id number] Description:LUMBAR Lead Linear 3-4 8 Contact 50cm - [id number] Implanted:Qty: 1 on 03/08/2016 by Zelalem Cohen DO at [facility] DEVICE N/A: OTHER-SEE DESCRIPTION [facility] 09/10/2017 [id number] 2500 / / [id number] Description:LUMBAR Lead Linear 3-4 8 Contact 50cm - [id number] Implanted:Qty: 1 on 03/08/2016 by Zelalem Cohen DO at [facility] DEVICE N/A: OTHER-SEE DESCRIPTION [facility] 09/10/2017 [id number] 2500 / / [id number] Description:LUMBAR Lead Linear 3-4 8 Contact 50cm - [id number] Implanted:Qty: 1 on 05/24/2016 by Zelalem Cohen DO at [facility] DEVICE N/A: SPINE LUMBAR POSTERIOR [facility] 01/31/2018 [id number] 2500 / [id number] / Lead Linear 3-4 8 Contact 50cm - [id number] Implanted:Qty: 1 on 05/24/2016 by Zelalem Cohen DO at [facility] DEVICE N/A: SPINE LUMBAR POSTERIOR [facility] 04/26/2018 [id number] 2500 / [id number] / Lead Linear 3-4 8 Contact 50cm - [id number] Implanted:Qty: 1 on 05/24/2016 by Zelalem Cohen DO at [facility] DEVICE N/A: SPINE LUMBAR POSTERIOR [facility] 04/26/2018 [id number] 2500 / [id number] / Lead Linear 3-4 8 Contact 50cm - [id number] Implanted:Qty: 1 on 05/24/2016 by Zelalem Cohen DO at [facility] DEVICE N/A: SPINE LUMBAR POSTERIOR [facility] 04/26/2018 [id number] 2500 / [id number] / Generator Pulse Spectra - [id number] Implanted:Qty: 1 on 05/24/2016 by Zelalem Cohen DO at [facility] DEVICE N/A: SPINE LUMBAR POSTERIOR [facility] 05/08/2018 [id number] / [id number] / [id number] [place] [facility] - [id number] Implanted:Qty: 1 on 05/24/2016 by Zelalem Cohen DO at [facility] DEVICE N/A: SPINE LUMBAR POSTERIOR [facility] 05/02/2018 [id number] 60 / / [id number] [place] Ran - [id number] Implanted:Qty: 1 on 05/24/2016 by Zelalem Cohen DO at [facility] DEVICE N/A: SPINE LUMBAR POSTERIOR [facility] 02/28/2018 [id number] 60 / / [id number] Procedures Procedure Name Priority Date/Time Associated Diagnosis Comments CREATININE/GFR, WB POC Routine 01/06/2016 12:04 PM EAP COUNSELOR Back pain, 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 HGB A1C Routine 07/29/2014 3:19 AM CDT from Last 3 Months or Most Recently Relevant to Health Maintenance Results * CREATININE/GFR, WB POC (01/06/2016 12:04 PM EAP COUNSELOR) Creat Whole Blood 0.9 0.66 - 1.25 mg/dl [facility] GFR, Estimated >60 >60 ml/min/1.7 3m2 [facility] GFR, Est., If Black >60 >60 ml/min/1.7 3m2 [facility] 01/06/2016 12:0 4 PM EAP COUNSELOR 01/06/2016 12:21 PM EAP COUNSELOR Trae Blair MD LAB_[facility] [phone] * (ABNORMAL) HGB A1C (07/29/2014 3:19 AM CDT) Hgb A1c 6.4(H) 4.3 - 6.1 % [facility] Comment: The usual A1C goal for people with diabetes, age 18-75, is <8.0%. Physicians may recommend a higher or lower goal for specific individuals. 07/29/2014 3:19 AM CDT 07/29/2014 3:22 AM CDT [facility] - 07/29/2014 12:53 PM CDT Performed at [facility], [address] ??[address] [place] Wei PA-C LAB_[address] [address] from Last 3 Months or Most Recently [...] 5:44 PM 07/28/2014 6:50 PM Care Teams Test Center Manager Relationship Specialty Start Date End Date Franklin Squires MD 100 [facility] [address] [place] [address] PCP - General Family Practice 03/08/16
--- OUTSIDE RECORDS SUMMARY | 2024-03-23 12:49 | XMS_ITS | Encounter Summary ---
Author Name Unknown Organization [facility] Address [address] [address] Care Team Providers Care Director Of Religious Activities Name Role Phone Franklin Squires MD Primary Care Provider [phone] Encounter Details Date Type Department Care Team ([facility] st Contact Info) Description 11/10/2014 Correspondence [facility] Physical Therapy [address] [place] [address] Trudi Raymundo, PT [address] [place] [address] LETTER OF MEDICAL NECESSITY Social History Tobacco [...] in this encounter Care Teams Director Of Religious Activities Relationship Specialty Start Date End Date Franklin Squires MD 100 [facility] [place] [address] PCP - General Family Practice 03/08/16 documented as of this encounter
--- OUTSIDE RECORDS SUMMARY | 2024-03-23 12:49 | XMS_ITS | Encounter Summary ---
Author Name Unknown Organization [facility] Address [address], [place] [address] Care Team Providers Care Ranger Aide Name Role Phone Franklin Squires MD [...] on filedocumented in this encounter Care Teams Ranger Aide Relationship Specialty Start Date End Date Franklin Squires MD 100 [facility] [place] [address] PCP - General Family Practice 03/08/16 documented as of this encounter
--- OUTSIDE RECORDS SUMMARY | 2024-03-23 12:49 | XMS_ITS | Encounter Summary ---
Author Name Unknown Organization [facility] Address [address], [place] [address] Care Team Providers Care Business Representative Name Role Phone Franklin Squires MD Primary Care Provider [phone] Encounter Details Date Type Department Care Team ([facility] st Contact Info) Description 10/26/2013 Correspondence [facility] Physical Therapy [address] [place] [address] Trudi Raymundo, PT [address] [place] [address] LETTER OF MEDICAL NECESSITY Social History Tobacco [...] Raymundo, PT - 10/26/2013 12:00 AM CST E SOFTWARE DEVELOPMENT ENGINEER documented in this encounter Plan of Treatment Not on file documented as of this encounter Visit Diagnoses Not on filedocumented in this encounter Care Teams Business Representative Relationship Specialty Start Date End Date Franklin Squires MD 100 [facility] [place] [address] PCP - General Family Practice 03/08/16 documented as of this encounter
--- OUTSIDE RECORDS SUMMARY | 2024-03-23 12:49 | XMS_ITS | Encounter Summary ---
Author Name Unknown Organization [facility] Address [address], [place] [address] Care Team Providers Care Desk Lieutenant Name Role Phone Franklin Squires MD Primary Care Provider Encounter Details Date Type Department Care Team (Late st Contact Info) Description 07/28/2014 Outside Hospital External to External, Provider No address [address] ER VISIT/TRANSFER Social History Tobacco Use [...] filedocumented in this encounter Care Teams Desk Lieutenant Relationship Specialty Start Date End Date Franklin Squires MD 100 [facility] [place] [address] PCP - General Family Practice 03/08/16 documented as of this encounter
--- OUTSIDE RECORDS SUMMARY | 2024-03-23 12:49 | XMS_ITS | Encounter Summary ---
Author Name Unknown Organization [facility] Address [address], [place] [address] Care Team Providers Care High Pressure Kettle Operator Name Role Phone Franklin Squires MD [...] filedocumented in this encounter Care Teams High Pressure Kettle Operator Relationship Specialty Start Date End Date Franklin Squires MD 100 [facility] [place] [address] PCP - General Family Practice 03/08/16 documented as of this encounter
--- OUTSIDE RECORDS SUMMARY | 2024-03-23 12:49 | XMS_ITS | Encounter Summary ---
Author Name Unknown Organization [facility] Address [address], [place] [address] Care Team Providers Care Ammonia Print Operator Name Role Phone Franklin Squires MD Primary Care Provider Encounter Details Date Type Department Care Team (Late st Contact Info) Description 08/20/2014 Outside Hospital External to [facility] H/P Social History Tobacco [...] on filedocumented in this encounter Care Teams Ammonia Print Operator Relationship Specialty Start Date End Date Franklin Squires MD 100 [facility] [place] [address] PCP - General Family Practice 03/08/16 documented as of this encounter
--- OUTSIDE RECORDS SUMMARY | 2024-03-23 12:49 | XMS_ITS | Encounter Summary ---
Author Name Unknown Organization [facility] Address [address], [place] [address] Care Team Providers Care Radiation Control Specialist Name Role Phone Franklin Squires MD Primary Care Provider [phone] Encounter Details Date Type Department Care Team (Late st Contact Info) Description 05/04/2014 Correspondence [facility] 401 Physical Medicine 401 [facility] [place] [address] May Randle MD [address] [place] [address] LETTER OF MEDICAL NECESSITY FOR A WHEELCHAIR [...] filedocumented in this encounter Care Teams Radiation Control Specialist Relationship Specialty Start Date End Date Franklin Squires MD 100 [facility] [place] [address] PCP - General Family Practice 03/08/16 documented as of this encounter
--- OUTSIDE RECORDS SUMMARY | 2024-03-23 12:49 | XMS_ITS | Encounter Summary ---
Author Name Unknown Organization [facility] Address [address] [place] [address] Care Team Providers Care Spar Finisher Name Role Phone Franklin Squires MD Primary Care Provider Encounter Details Date Type Department Care Team (Late st Contact Info) Description 09/07/2014 Correspondence [facility] Radiology [address] [place] [address] Radiology, Provider MRI SAFETY SHEET AND COMPATIBILITY [...] on filedocumented in this encounter Care Teams Spar Finisher Relationship Specialty Start Date End Date Franklin Squires MD [address] [place] [address] [place] [address] PCP - General Family Practice 03/08/16 documented as of this encounter
--- OUTSIDE RECORDS SUMMARY | 2024-03-23 12:49 | XMS_ITS | Encounter Summary ---
Author Name Unknown Organization [facility] Address [address] [address] Care Team Providers Care Traffic Personnel Supervisor Name Role Phone Franklin Squires MD Primary Care Provider [phone] Encounter Details Date Type Department Care Team (Late st Contact Info) Description 12/16/2014 Correspondence External to External, Provider No address [place] [id number] MEDICARE PLAN OF CARE RECERT Social History [...] on filedocumented in this encounter Care Teams Traffic Personnel Supervisor Relationship Specialty Start Date End Date Franklin Squires MD 100 [facility] [place] [address] PCP - General Family Practice 03/08/16 documented as of this encounter
--- OUTSIDE RECORDS SUMMARY | 2024-03-23 12:49 | XMS_ITS | Encounter Summary ---
Author Name Unknown Organization [facility] Address [address], [place] [address] Care Team Providers Care Energy Risk Management Analyst Name Role Phone Franklin Squires MD Primary Care Provider [phone] Encounter Details Date Type Department Care Team (Late st Contact Info) Description 11/23/2015 Correspondence External to External, [place] [address] LETTER [facility] Social History Tobacco Use Types [...] filedocumented in this encounter Care Teams Energy Risk Management Analyst Relationship Specialty Start Date End Date Franklin Squires MD 100 [facility] [place] [address] PCP - General Family Practice 03/08/16 documented as of this encounter
--- OUTSIDE RECORDS SUMMARY | 2024-03-23 12:49 | XMS_ITS | Encounter Summary ---
Author Name Unknown Organization [facility] Address [address] [place] [address] Care Team Providers Care Data Solutions Architect Name Role Phone Franklin Squires MD Primary Care Provider Encounter Details Date Type Department Care Team (Late st Contact Info) Description 06/07/2015 Correspondence [facility] Radiology [address] [place] [address] Radiology, Provider MRI SAFETY SHEET AND COMPATIBILITY [...] filedocumented in this encounter Care Teams Data Solutions Architect Relationship Specialty Start Date End Date Franklin Squires MD [address] [place] [address] [place] [address] PCP - General Family Practice 03/08/16 documented as of this encounter
--- OUTSIDE RECORDS SUMMARY | 2024-03-23 12:49 | XMS_ITS ---
Author Name Unknown Organization [facility] Address [address], [place] [address] Care Team Providers Care Petroleum Geology Faculty Member Name Role Phone Franklin Squires MD Primary Care Provider [phone] Active Problems Problem Noted Date Diagnosed Date [...] treatments are documented for this patient in [facility]. Treatments may have been administered in another system. Resolved Problems Problem Noted Date Diagnosed Date Resolved Date Gait abnormality 01/17/2012 02/09/2015 Back pain 01/17/2012 02/09/2015 Paraplegia 04/04/2011 02/09/2015 Osteoporosis 03/06/2011 02/09/2015 Urinary tract infection 12/24/200603/11
--- OUTSIDE RECORDS SUMMARY | 2024-03-23 12:49 | XMS_ITS | Encounter Summary ---
Author Name Unknown Organization [facility] Address [address], [place] [address] Care Team Providers Care Aerospace Technician Name Role Phone Franklin Squires MD Primary Care Provider [phone] Encounter Details Date Type Department Care Team (Late st Contact Info) Description 08/22/2014 Outside Hospital External to [facility] HOSP-D/C SUMMARY Social History Tobacco Use [...] on filedocumented in this encounter Care Teams Aerospace Technician Relationship Specialty Start Date End Date Franklin Squires MD 100 [facility] [place] [address] PCP - General Family Practice 03/08/16 documented as of this encounter
--- OUTSIDE RECORDS SUMMARY | 2024-03-23 12:49 | XMS_ITS | Encounter Summary ---
Author Name Unknown Organization [facility] Address [address], [place] [address] Care Team Providers Care Bank Boss Name Role Phone Franklin Squires MD Primary Care Provider Encounter Details Date Type Department Care Team (Latest Contact Info) Description 12/11/2017 Correspondence Physiatry/Physical Medicine at [facility] [address] [facility] [place] [address] May Randle MD [address] [place] [address] [employer] Social History Tobacco Use [...] on filedocumented in this encounter Care Teams Bank Boss Relationship Specialty Start Date End Date Franklin Squires MD [address] [place] [address] [place] [address] PCP - General Family Practice 03/08/16 documented as of this encounter
--- OUTSIDE RECORDS SUMMARY | 2024-03-23 12:49 | XMS_ITS | Encounter Summary ---
Author Name Unknown Organization [facility] Address [address] [address] Care Team Providers Care Machine Plate Stacker Name Role Phone Franklin Squires MD Primary Care Provider Encounter Details Date Type Department Care Team (Latest Contact Info) Description 06/04/2014 [facility]ence [facility] 401 Interventional Pain Management 401 [facility] [place] [address] Zelalem Cohen, DO [address] [place] [address] MEDICAID PT INFORMATION EMPI RECOVERY Social History [...] filedocumented in this encounter Care Teams Machine Plate Stacker Relationship Specialty Start Date End Date Franklin Squires MD 100 [facility] [place] [address] PCP - General Family Practice 03/08/16 documented as of this encounter
--- OUTSIDE RECORDS SUMMARY | 2024-03-23 12:49 | XMS_ITS | Encounter Summary ---
Author Name Unknown Organization [facility] Address [address], [place] [address] Care Team Providers Care Booth Operator Name Role Phone Franklin Squires MD [...] on filedocumented in this encounter Care Teams Booth Operator Relationship Specialty Start Date End Date Franklin Squires MD 100 [facility] [place] [address] PCP - General Family Practice 03/08/16 documented as of this encounter
--- OUTSIDE RECORDS SUMMARY | 2024-03-23 12:49 | XMS_ITS | Encounter Summary ---
Author Name Unknown Organization [facility] Address [address] [address] Care Team Providers Care Rail Technician Name Role Phone Franklin Squires MD Primary Care Provider [phone] Encounter Details Date Type Department Care Team (Late st Contact Info) Description 12/14/2014 Correspondence [facility] 401 Physical Medicine 401 [facility] [place] [address] May Randle MD [address] [place] [address] DETAILED PRODUCT DESCRIPTION Social History Tobacco Use [...] filedocumented in this encounter Care Teams Rail Technician Relationship Specialty Start Date End Date Franklin Squires MD [address] [facility] [place] [address] PCP - General Family Practice 03/08/16 documented as of this encounter
--- OUTSIDE RECORDS SUMMARY | 2024-03-23 12:49 | XMS_ITS | Encounter Summary ---
Author Name Unknown Organization [facility] Address [address] [place] [address] Care Team Providers Care Diet Consultant Name Role Phone Franklin Squires MD Primary Care Provider [phone] Encounter Details Date Type Department Care Team (Late st Contact Info) Description 01/06/2016 Correspondence [facility] Radiology [address] [place] [address] Radiology, Provider MRI SAFETY SHEET AND COMPATIBILITY [...] on filedocumented in this encounter Care Teams Diet Consultant Relationship Specialty Start Date End Date Franklin Squires MD [address] [place] [address] [place] [address] PCP - General Family Practice 03/08/16 documented as of this encounter
--- OUTSIDE RECORDS SUMMARY | 2024-03-23 12:49 | XMS_ITS | Encounter Summary ---
Author Name Unknown Organization [facility] Address [address], [place] [address] Care Team Providers Care Urban Design Consultant Name Role Phone Franklin Squires MD Primary Care Provider Encounter Details Date Type Department Care Team (Late st Contact Info) Description 02/05/2014 Correspondence [facility] Physical Therapy [address] [place] [address] Trudi Raymundo, PT [address] [place] [address] LETTER OF MEDICAL NECESSITY FOR A WHEELCHAIR [...] on filedocumented in this encounter Care Teams Urban Design Consultant Relationship Specialty Start Date End Date Franklin Squires MD [facility] [place] [address] PCP - General Family Practice 03/08/16 documented as of this encounter
--- OUTSIDE RECORDS SUMMARY | 2024-03-23 12:49 | XMS_ITS | Encounter Summary ---
Author Name Unknown Organization [facility] Address [address], [place] [address] Care Team Providers Care Hot Punch Press Operator Name Role Phone Franklin Squires MD Primary Care Provider Encounter Details Date Type Department Care Team (Late st Contact Info) Description 06/11/2014 [facility]ence [facility] 401 Physical Medicine 401 [place] [address] May Randle MD [address] [place] [address] [facility] Social History Tobacco Use Types [...] filedocumented in this encounter Care Teams Hot Punch Press Operator Relationship Specialty Start Date End Date Franklin Squires MD [address] [facility] [place] [address] PCP - General Family Practice 03/08/16 documented as of this encounter
--- OUTSIDE RECORDS SUMMARY | 2024-03-23 12:49 | XMS_ITS | Encounter Summary ---
Author Name Unknown Organization [facility] Address [address] [address] Care Team Providers Care Manager Internet Name Role Phone Franklin Squires MD Primary Care Provider [phone] Encounter Details Date Type Department Care Team (Late st Contact Info) Description 07/23/2013 Correspondence [facility] 401 Interventional Pain Management 401 [facility] [place] [address] Zelalem Cohen DO [address] [place] [address] [employer] S[employer] Social History Tobacco Use Types [...] Cohen MD - 07/23/2013 12:00 AM CDT ET PREPARATION OPERATOR documented in this encounter Plan of Treatment Not on file documented as of this encounter Visit Diagnoses Not on filedocumented in this encounter Care Teams Manager Internet Relationship Specialty Start Date End Date Franklin Squires MD 100 [facility] [place] [address] PCP - General Family Practice 03/08/16 documented as of this encounter
--- OUTSIDE RECORDS SUMMARY | 2024-03-23 12:50 | XMS_ITS | Encounter Summary ---
Author Name Unknown Organization [facility] Address [address] [place] [address] Care Team Providers Care Computer Applications Engineer Name Role Phone Franklin Squires MD Primary Care Provider Encounter Details Date Type Department Care Team (Late st Contact Info) Description 01/08/2013 Scanned History External to Transferred Record, Provider [facility] Social History Tobacco Use Types Packs/Day [...] filedocumented in this encounter Care Teams Computer Applications Engineer Relationship Specialty Start Date End Date Franklin Squires MD [address] [facility] [place] [address] PCP - General Family Practice 03/08/16 documented as of this encounter
--- OUTSIDE RECORDS SUMMARY | 2024-03-23 12:50 | XMS_ITS | Encounter Summary ---
Author Name Unknown Organization [facility] Address [address] [address] Care Team Providers Care Casino Cage Cashier Name Role Phone Franklin Squires MD Primary Care Provider Encounter Details Date Type Department Care Team (Late st Contact Info) Description 04/24/2012 Correspondence [facility] Radiology [address] [place] [address] Radiology, Provider MRI SAFETY SHEET AND COMPATIBILITY [...] filedocumented in this encounter Care Teams Casino Cage Cashier Relationship Specialty Start Date End Date Franklin Squires MD [address] [facility] [place] [address] PCP - General Family Practice 03/08/16 documented as of this encounter
--- OUTSIDE RECORDS SUMMARY | 2024-03-23 12:50 | XMS_ITS | Encounter Summary ---
Author Name Unknown Organization [facility] Address [address], [place] [address] Care Team Providers Care Horticultural Farmworker Name Role Phone Franklin Squires MD [...] on filedocumented in this encounter Care Teams Horticultural Farmworker Relationship Specialty Start Date End Date Franklin Squires MD 100 [facility] [place] [address] PCP - General Family Practice 03/08/16 documented as of this encounter
--- OUTSIDE RECORDS SUMMARY | 2024-03-23 12:50 | XMS_ITS | Encounter Summary ---
Author Name Unknown Organization [facility] Address [address], [place] [address] Care Team Providers Care Liquified Natural Gas Technician Name Role Phone Franklin Squires MD Primary Care Provider Encounter Details Date Type Department Care Team (Late st Contact Info) Description 11/13/2012 Correspondence [facility] Radiology [address] [place] [address] Radiology, Provider MRI SAFETY SHEET AND COMPATIBILITY [...] RADIOLOGY, PROVIDER - 11/13/2012 12:00 AM CST MUD MOLDER documented in this encounter Plan of Treatment Not on file documented as of this encounter Visit Diagnoses Not on filedocumented in this encounter Care Teams Liquified Natural Gas Technician Relationship Specialty Start Date End Date Franklin Squires MD [address] [facility] [place] [address] PCP - General Family Practice 03/08/16 documented as of this encounter
== END 2024-03-23 12:46 | disposition home or self-care (01) ==
LOC: WOUND 12:45
PROVIDERS: PCP Family Medicine; Visit Provider Nurse Practitioner Family
DX: L89.324 Pressure ulcer of left buttock, stage 4 (principal); E11.622 Type 2 diabetes mellitus with other skin ulcer; M86.18 Other acute osteomyelitis, other site; G82.50 Quadriplegia, unspecified
CPT/HCPCS: 11042; 97605

== ENCOUNTER 2024-03-30 13:23 | Outpatient (CLI) | payer MEDICARE, OTHER, SELFPAY ==
--- OUTSIDE RECORDS SUMMARY | 2024-03-30 13:25 | XMS_ITS | Continuity of Care Document ---
Author Name [facility] Organization [facility] Care Team Providers Care Flatwork Feeder Name Role Phone [facility] Unavailable Unavailable Problems Combined list of problems from 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 It does not include entries that were removed or entered in error. Problem Status Onset Date Problem Type Date of Resolution Comments Source Abnormal liver function Active Condition [facility] Anemia ([facility] 978228555) Active Condition [facility] Anxiety ([facility] 82551073) Active Condition [facility] Autonomic dysreflexia Active Condition [facility] Chronic Pain Syndrome ([facility] 656871169) Active Condition [facility] Colostomy present Active Condition [facility] Constipation ([facility] 10961190) Active Condition [facility] Continuous opioid dependence Active Condition [facility] COPD - Chronic Obstructive Pulmonary Disease ([facility] 01305697) Active Condition [facility] Dementia Active Condition [facility] Depression ([facility] 49839725) Active Condition [facility] Diabetes Mellitus Type 2 ([facility] 10540641) Active Condition [facility] Ependymoma of spinal cord Active Condition [facility] Hearing Loss ([facility] 87914283) Active Condition [facility] History of Deep Vein Thrombosis ([facility] 004641390) Active Condition [facility] History of pressure injury Active Condition [facility] HTN - Hypertension ([facility] 61601578) Active Condition [facility] Hyperlipidemia ([facility] 23479077) Active Condition [facility] Hyponatremia Active Condition [facility] Long-term current use of anticoagulant Active Condition [facility] Neurogenic Bladder ([facility] 417525337) Active Condition [facility] Neurogenic bowel Active Condition [facility] Osteoporosis ([facility] 66246894) Active Condition [facility] Paraplegia Active Condition [facility] Spasticity Active Condition [facility] Suprapubic urinary catheter in situ Active Condition [facility] Supraventricular tachycardia Active Condition [facility] Tinnitus ([facility] 90113176) Active Condition [facility] Vitamin D Deficiency ([facility] 9163744) Active Condition [facility] Diagnosis: ICD-10-CM Z73.6 Limitation of activities due to disability Active Diagnosis [facility] Diagnosis: ICD-10-CM G82.20 Paraplegia, unspecified Active Diagnosis [facility] Diagnosis: ICD-10-CM Z43.3 Encounter for attention to colostomy Active Diagnosis [facility] Diagnosis: ICD-10-CM Z71.3 Dietary counseling and surveillance Active Diagnosis [facility] Diagnosis: ICD-10-CM F32.A Depression, unspecified Active Diagnosis [facility] Medications Combined list of outpatient medications from Department of Defense and [facility] Affairs facilities.Medications provided include 1) outpatient medications from the last 15 months, and 2) patient-reported medications. Medication Details Route Status Patient Instructions Prescription Expires Prescription Number Last Dispense Date Ordering Provider Order Date Order Qty Source ACETAMINOPH EN 500MG TAB TAKE TWO TABLETS BY MOUTH THREE TIMES A DAY NEEDED ORALLY ACTIVE Jagdish BARRETT N 2022 [facility] AMLODIPINE BESYLATE (AMLODIPINE BESYLATE), 5 MG, TABLET, ORAL, [employer] 1000 ea. BOTTLE Active [id number] 4 2023 90 Pharmac y Data Transac tion Service Facilit y AMLODIPINE BESYLATE (amlodipine besylate), 5 MG, TABLET, ORAL, [employer], 1000 ea. BOTTLE Active [id number] 4 2023 90 Pharmac y Data Transac tion Service Facilit y AMLODIPINE BESYLATE 2.5MG TAB TAKE TWO TABLETS BY MOUTH EVERY MORNING ORALLY ACTIVE Jagdish BARRETT 2022 [facility] AMOX TR-POTASSIU M CLAVULANATE (AMOXICILLI N/POTASSIUM CLAV), 875-125 MG, TABLET, ORAL, [employer] [facility], 20 ea. BOTTLE Active [id number] 3 2022 14 Pharmac y Data Transac tion Service Facilit y AMOXICILLIN -CLAVULANAT E POTASS (amoxicilli n/potassium clavulanate ), 875-125 MG, TABLET, ORAL, [facility],, 20 ea. BOTTLE Active [id number] 2023 56 Pharmac y Data Transac tion Service Facilit y ARIPIPRAZOL E (aripiprazo le), 2 MG, TABLET, ORAL, [employer] [facility], 500 ea. BOTTLE Active [id number] 4 2023 180 Pharmac y Data Transac tion Service Facilit y ARIPIPRAZOL E (aripiprazo le), 2 MG, TABLET, ORAL, [employer] [facility], 500 ea. BOTTLE Active [id number] 2023 180 Pharmac y Data Transac tion Service Facilit y ARIPIPRAZOL E TAB TAKE 2MG BY MOUTH TWICE A DAY ORALLY ACTIVE Jey HANSON 2021 [facility] ATIVAN (LORAZEPAM) , 0.5 MG, TABLET, ORAL, [employer], 100 ea. BOTTLE Active [id number] 2023 120 Pharmac y Data Transac tion Service Facilit y ATORVASTATI N CA 80MG TAB TAKE ONE-HALF TABLET BY MOUTH EVERY DAY ORALLY ACTIVE Jey HANSON 2021 [facility] ATORVASTATI N CALCIUM (atorvastat in calcium), 40 MG, TABLET, ORAL, [employer] [facility]ARMA I, 1000 ea. BOTTLE Active [id number] 2023 90 Pharmac y Data Transac tion Service Facilit y ATORVASTATI N CALCIUM (atorvastat in calcium), 40 MG, TABLET, ORAL, [facility] [facility] I, 1000 ea. BOTTLE Active [id number] 2023 90 Pharmac y Data Transac tion Service Facilit y BACLOFEN (baclofen), 20 MG, TABLET, ORAL, [facility] 1000 ea. BOTTLE Active [id number] 2023 540 Pharmac y Data Transac tion Service Facilit y BACLOFEN (baclofen), 20 MG, TABLET, ORAL, [facility] 1000 ea. BOTTLE Active [id number] 2023 540 Pharmac y Data Transac tion Service Facilit y BACLOFEN 20MG TAB TAKE TWO TABLETS BY MOUTH THREE TIMES A DAY ORALLY ACTIVE Jagdish BARRETT 2022 [facility] BUPROPION HCL 150MG 12HR TAB,SA TAKE ONE TABLET BY MOUTH TWICE A DAY ORALLY ACTIVE Jey HANSON 2021 [facility] CBTATI BUPROPION HCL SR (bupropion HCl), 150 MG, TAB SR 12H, ORAL, [facility] [facility], 60 ea. BOTTLE Active [id number] 2023 180 Pharmac y Data Transac [...] ORAL, [employer] [facility], 50 ea. BOTTLE Active [id number] 2023 70 Pharmac y Data Transac tion Service Facilit y DONEPEZIL HCL (DONEPEZIL HCL), 5 MG, TABLET, ORAL, [employer] 1000 ea. BOTTLE Cancele d [id number] : 2023 0 Pharmac y Data Transac tion Service Facilit y DONEPEZIL HCL (DONEPEZIL HCL), 5 MG, TABLET, ORAL, [employer] 1000 ea. BOTTLE Active [id number] 2023 90 Pharmac y Data Transac tion Service Facilit y DONEPEZIL HCL 10MG TAB TAKE ONE-HALF TABLET BY MOUTH EVERY DAY ORALLY ACTIVE Jey HANSON 2021 [facility] DULOXETINE HCL (duloxetine HCl), 60 MG, CAPSULE DR, ORAL, [employer] 1000 ea. BOTTLE Active [id number] 2023 180 Pharmac y Data Transac tion Service Facilit y DULOXETINE HCL 30MG CAP,EC TAKE 2 CAPSULES BY MOUTH TWICE A DAY ORALLY ACTIVE Jey HANSON 2021 [facility] FAMOTIDINE (famotidine ), 20 MG, TABLET, ORAL, [employer] 1000 ea. BOTTLE Active [id number] 2023 180 Pharmac y Data Transac tion Service Facilit y FAMOTIDINE 20MG TAB TAKE ONE TABLET BY MOUTH TWICE A DAY ORALLY ACTIVE Jey HANSON 2021 [facility] FUROSEMIDE (furosemide ), 40 MG, TABLET, ORAL, [facility] [facility], 1000 ea. BOTTLE Active [id number] 2023 180 Pharmac y Data Transac tion Service Facilit y FUROSEMIDE (furosemide ), 40 MG, TABLET, ORAL, [employer] [facility], 1000 ea. BOTTLE Active [id number] 2023 180 Pharmac y Data Transac tion Service Facilit y FUROSEMIDE 40MG TAB TAKE ONE TABLET BY MOUTH TWICE A DAY ORALLY ACTIVE Jey HANSON 2021 [facility] GABAPENTIN (gabapentin ), 400 MG, CAPSULE, ORAL, [employer] 500 ea. BOTTLE Active [id number] 2023 270 Pharmac y Data Transac tion Service Facilit y GABAPENTIN 400MG CAP TAKE 1 CAPSULE BY MOUTH THREE TIMES A DAY ORALLY ACTIVE Jey HANSON 2021 [facility] LORAZEPAM (lorazepam) , 0.5 MG, TABLET, ORAL, [employer], 1000 ea. BOTTLE Active [id number] 2023 120 Pharmac y Data Transac tion Service Facilit y LORAZEPAM (lorazepam) , 0.5 MG, TABLET, ORAL, [employer], 1000 ea. BOTTLE Active [id number] 2023 120 Pharmac y Data Transac tion Service Facilit y LORAZEPAM (lorazepam) , 0.5 MG, TABLET, ORAL, [employer], 1000 ea. BOTTLE Active [id number] 2023 120 Pharmac y Data Transac tion Service Facilit y LORAZEPAM (lorazepam) , 0.5 MG, TABLET, ORAL, [employer], 500 ea. BOTTLE Active [id number] 2023 120 Pharmac y Data Transac tion Service Facilit y LORAZEPAM 0.5MG TAB TAKE ONE TABLET BY MOUTH THREE TIMES A DAY AND TAKE TWO TABLETS BY MOUTH AT BEDTIME ORALLY ACTIVE Jagdish BARRETT N 2022 [facility] MILK OF MAGNESIA TAKE 30ML BY MOUTH EVERY DAY NEEDED ORALLY ACTIVE Jey HANSON M 2021 [facility] MULTIVITAMI NS CAP/TAB TAKE ONE TABLET BY MOUTH EVERY DAY ORALLY ACTIVE Jey HANSON M 2021 [facility] NALOXONE HCL 4MG/SPRAY SOLN,SPRAY, NASAL SPRAY 1 DOSE IN ONE NOSTRIL DIRECTED PRN NOSTRI L ACTIVE Jagdish BARRETT N 2022 [facility] OXYCODONE HCL (OXYCODONE HCL), 10 MG, TABLET, ORAL, [employer] 100 ea. BOTTLE Active [id number] 2023 120 Pharmac y Data Transac tion Service Facilit y OXYCODONE HCL (OXYCODONE HCL), 10 MG, TABLET, ORAL, [employer] 100 ea. BOTTLE Active [id number] 2023 120 Pharmac y Data Transac tion Service Facilit y OXYCODONE HCL (OXYCODONE HCL), 10 MG, TABLET, ORAL, [employer] 100 ea. BOTTLE Active [id number] 2023 120 Pharmac y Data Transac tion Service Facilit y OXYCODONE HCL (OXYCODONE HCL), 10 MG, TABLET, ORAL, [employer] 100 ea. BOTTLE Active [id number] 2023 120 Pharmac y Data Transac tion Service Facilit y OXYCODONE HCL (OXYCODONE HCL), 10 MG, TABLET, ORAL, [employer] 100 ea. BOTTLE Active [id number] 2022 120 Pharmac y Data Transac tion Service Facilit y OXYCODONE HCL 5MG TAB TAKE TWO TABLETS BY MOUTH FOUR TIMES A DAY ORALLY ACTIVE Jagdish BARRETT 2022 [facility] POTASSIUM CHLORIDE (potassium chloride), 10 MEQ, TAB ER PRT, ORAL, [employer], 100 ea. BOTTLE Active [id number] 2023 180 Pharmac y Data Transac tion Service Facilit y POTASSIUM CHLORIDE (potassium chloride), 20 MEQ, TAB ER PRT, ORAL, [employer], 100 ea. BOTTLE Active [id number] 3 2023 90 Pharmac y Data Transac tion Service Facilit y POTASSIUM CHLORIDE 20MEQ TAB,SA (DISPERSIBL E) TAKE ONE TABLET BY MOUTH TWICE A DAY ORALLY ACTIVE Jey HANSON 2021 [facility] CBTATI SANTYL (collagenas e Clostridium histolyticu m), 250 UNIT/G, OINT. (G), TOPICAL, WHITLOCK&N/UNI LUIS, 30 g TUBE Cancele d [id number] : 2023 0 Pharmac y Data Transac tion Service Facilit y WARFARIN SODIUM (warfarin sodium), 5 MG, TABLET, ORAL, [employer] 1000 ea. BOTTLE Cancele d [id number] : 2022 0 Pharmac y Data Transac tion Service Facilit y WARFARIN SODIUM (WARFARIN SODIUM), 5 MG, TABLET, ORAL, [employer], 1000 ea. BOTTLE Active [id number] 2023 12 Pharmac y Data Transac tion Service Facilit y WARFARIN SODIUM (WARFARIN SODIUM), 5 MG, TABLET, ORAL, [employer] [place], 1000 ea. BOTTLE Active [id number] 2023 40 Pharmac y Data Transac tion Service Facilit y WARFARIN SODIUM (WARFARIN SODIUM), 5 MG, TABLET, ORAL, [employer] [place], 1000 ea. BOTTLE Cancele d [id number] : 2022 0 Pharmac y Data Transac tion Service Facilit y WARFARIN SODIUM (warfarin sodium), 7.5 MG, TABLET, ORAL, [employer] [place], 100 ea. BOTTLE Active [id number] 2023 51 Pharmac y Data Transac tion Service Facilit y WARFARIN SODIUM (warfarin sodium), 7.5 MG, TABLET, ORAL, [employer] [place], 100 ea. BOTTLE Active [id number] 2023 78 Pharmac y Data Transac tion Service Facilit y WARFARIN TAB TAKE 5MG BY MOUTH SUN/THUR S AND TAKE 7.5MG BY MOUTH ALL OTHER DAYS ORALLY ACTIVE Jagdish BARRETT 2022 [facility] Allergies, Adverse Reactions, Alerts Combined list of allergies from Department of [facility] and 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 It does not include entries that were removed or entered in error. Substance Category Reaction Severity Reaction type Status Date Reported Comments Source AMOXICILLIN Propensity to adverse reactions to drug (finding) Eruption active 2 [facility] METOLAZONE Propensity to adverse reactions to drug (finding) Itching active 2 [facility] MORPHINE Propensity to adverse reactions to drug (finding) Delirium active 2 [facility] PIPERACILLIN Propensity to adverse reactions to drug (finding) Eruption active 2 [facility] SULFA DRUGS Propensity to adverse reactions to drug (finding) Eruption active 2 [facility] TAZOBACTAM SODIUM Propensity to adverse reactions to drug (finding) Eruption active 2 [facility] Immunizations Combined list of available immunizations from the Department of [facility] and [facility] facilities. Immunization Series Date Given Administered By Site Reaction Lot Number CVX Code Drug Treating Inspector Status Comments Source INFLUENZA, UNSPECIFIED FORMULATION 2021 88 complet ed 's recall [facility] TD (ADULT), 5 LF TETANUS TOXOID, PRESERVATIVE FREE, ADSORBED 2021 113 complet ed [facility] INFLUENZA, UNSPECIFIED FORMULATION 2020 88 complet ed [facility] COVID-19 (PFIZER), MRNA, LNP-S, PF, 30 MCG/0.3 ML DOSE 3 2020 208 complet ed [facility] COVID-19 (PFIZER), MRNA, LNP-S, PF, 30 MCG/0.3 ML DOSE 2 2020 208 complet ed [facility] COVID-19 (PFIZER), MRNA, LNP-S, PF, 30 MCG/0.3 ML DOSE 1 2020 208 complet ed [facility] PNEUMOCOCCAL CONJUGATE PCV 13 2014 133 complet ed [facility] ZOSTER LIVE 2012 121 complet ed [facility] PNEUMOCOCCAL POLYSACCHARID E PPV23 2010 33 complet ed [facility] TDAP 2010 115 complet ed [facility] Results Combined list of recent chemistry, [...] Feb 05, 2023 03:10 PM Reporting Lab: [facility] [address] Performing Lab: [facility] [address] [facility] CYSTATIN C WITH EGFR CYSTATIN C AND GLOMERULAR FILTRATION RATE BY CYSTATIN C-BASED FORMULA PANEL - SERUM OR PLASMA 53 60 02/13 L Specimen Type: PLASMA No comment entered. Ordering Provider: ANKUSH BOWMAN Report Released Date/Time: Feb 05, 2023 03:10 PM Reporting Lab: [facility] [address] Performing Lab: [facility] [address] [place] [facility] BASIC METABOLI C PANEL+MG CREATININE [MASS/VOLU ME] IN SERUM OR PLASMA 0.7 0.7 - 1.2 02/13 Specimen Type: PLASMA No comment entered. Ordering Provider: ANKUSH BOWMAN Report Released Date/Time: Feb 05, 2023 03:10 PM Reporting Lab: [facility] [address] Performing Lab: [facility] [address] [place] [facility] BASIC METABOLI C PANEL+MG UREA NITROGEN [MASS/VOLU ME] IN SERUM OR PLASMA 15 8 - 26 02/13 Specimen Type: PLASMA No comment entered. Ordering Provider: ANKUSH BOWMAN Report Released Date/Time: Feb 05, 2023 03:10 PM Reporting Lab: [facility] [address] Performing Lab: [facility] [address] [place] [facility] BASIC METABOLI C PANEL+MG GLUCOSE [MASS/VOLU ME] IN SERUM OR PLASMA 140 70 - 100 02/13 H Specimen Type: PLASMA No comment entered. Ordering Provider: ANKUSH BOWMAN Report Released Date/Time: Feb 05, 2023 03:10 PM Reporting Lab: [facility] [phone] Performing Lab: [facility] [address] [place] [facility] BASIC METABOLI C PANEL+MG SODIUM [MOLES/VOL UME] IN SERUM OR PLASMA 135 136 - 145 02/13 L Specimen Type: PLASMA No comment entered. Ordering Provider: ANKUSH BOWMAN Report Released Date/Time: Feb 05, 2023 03:10 PM Reporting Lab: [facility] [address] Performing Lab: [facility] [address] [place] [facility] BASIC METABOLI C PANEL+MG POTASSIUM [MOLES/VOL UME] IN SERUM OR PLASMA 4.0 3.5 - 5.1 02/13 Specimen Type: PLASMA No comment entered. Ordering Provider: ANKUSH BOWMAN Report Released Date/Time: Feb 05, 2023 03:10 PM Reporting Lab: [facility] [address] Performing Lab: [facility] [address] [place] [facility] BASIC METABOLI C PANEL+MG CHLORIDE [MOLES/VOL UME] IN SERUM OR PLASMA 99 98 - 107 02/13 Specimen Type: PLASMA No comment entered. Ordering Provider: ANKUSH BOWMAN Report Released Date/Time: Feb 05, 2023 03:10 PM Reporting Lab: [facility] [address] Performing Lab: [facility] [address] [place] [facility] BASIC METABOLI C PANEL+MG CARBON DIOXIDE, TOTAL [MOLES/VOL UME] IN SERUM OR PLASMA 29 - 29 02/13 Specimen Type: PLASMA No comment entered. Ordering Provider: ANKUSH BOWMAN Report Released Date/Time: Feb 05, 2023 03:10 PM Reporting Lab: [facility] [address] Performing Lab: [facility] [address] [place] [facility] BASIC METABOLI C PANEL+MG CALCIUM [MASS/VOLU ME] IN SERUM OR PLASMA 9.2 8.4 - 10.2 02/13 Specimen Type: PLASMA No comment entered. Ordering Provider: ANKUSH BOWMAN Report Released Date/Time: Feb 05, 2023 03:10 PM Reporting Lab: [facility] [address] Performing Lab: [facility] [address] [place] [facility] BASIC METABOLI C PANEL+MG MAGNESIUM [MASS/VOLU ME] IN SERUM OR PLASMA 2.0 1.6 - 2.6 02/13 Specimen Type: PLASMA No comment entered. Ordering Provider: ANKUSH BOWMAN Report Released Date/Time: Feb 05, 2023 03:10 PM Reporting Lab: [facility] [address] Performing Lab: [facility] [address] [place] [facility] BASIC METABOLI C PANEL+MG ANION GAP IN SERUM OR PLASMA 7 5 - 15 02/13 Specimen Type: PLASMA No comment entered. Ordering Provider: ANKUSH BOWMAN Report Released Date/Time: Feb 05, 2023 03:10 PM Reporting Lab: [facility] [address] Performing Lab: [facility] [address] [place] [facility] BASIC METABOLI C PANEL+MG GLOMERULAR FILTRATION RATE/1.73 SQ M.PREDICTE D [VOLUME RATE/AREA] IN SERUM, PLASMA OR BLOOD BY CREATININE -BASED FORMULA (CKD-EPI) >90 60 02/13 Specimen Type: PLASMA No comment entered. Ordering Provider: ANKUSH BOWMAN Report Released Date/Time: Feb 05, 2023 03:10 PM Reporting Lab: [facility] [address] Performing Lab: [facility] [address] [place] [facility] URINALYS IS COLOR OF URINE YELLOW 10/08 Specimen Type: URINE No comment entered. Ordering Provider: ANKUSH BOWMAN Report Released Date/Time: Sep 24, 2022 01:55 PM Reporting Lab: [facility] [address] Performing Lab: [facility] [address] [place] [facility] URINALYS IS SPECIFIC GRAVITY OF URINE 1.023 1.003 - 1.035 10/08 Specimen Type: URINE No comment entered. Ordering Provider: ANKUSH BOWMAN Report Released Date/Time: Sep 24, 2022 01:55 PM Reporting Lab: [facility] [address] Performing Lab: [facility] [address] [place] [facility] URINALYS IS BILIRUBIN. TOTAL [PRESENCE] IN URINE BY TEST STRIP NEGATIVE 10/08 Specimen Type: URINE No comment entered. Ordering Provider: ANKUSH BOWMAN Report Released Date/Time: Sep 24, 2022 01:55 PM Reporting Lab: [facility] [address] Performing Lab: [facility] [address] [place] [facility] URINALYS IS KETONES [MASS/VOLU ME] IN URINE BY TEST STRIP NEGATIVE 10/08 Specimen Type: URINE No comment entered. Ordering Provider: ANKUSH BOWMAN Report Released Date/Time: Sep 24, 2022 01:55 PM Reporting Lab: [facility] [address] Performing Lab: [facility] [address] [place] [facility] URINALYS IS GLUCOSE [MASS/VOLU ME] IN URINE BY TEST STRIP NEGATIVE <30 - 30 10/08 Specimen Type: URINE No comment entered. Ordering Provider: ANKUSH BOWMAN Report Released Date/Time: Sep 24, 2022 01:55 PM Reporting Lab: [facility] [address] Performing Lab: [facility] [address] [place] [facility] URINALYS IS PROTEIN [MASS/VOLU ME] IN URINE BY TEST STRIP 30 <20 - 20 10/08 Specimen Type: URINE No comment entered. Ordering Provider: ANKUSH BOWMAN Report Released Date/Time: Sep 24, 2022 01:55 PM Reporting Lab: [facility] [address] Performing Lab: [facility] [address] [place] [facility] URINALYS IS PH OF URINE BY TEST STRIP 7.5 5.0 - 8.0 10/08 Specimen Type: URINE No comment entered. Ordering Provider: ANKUSH BOWMAN Report Released Date/Time: Sep 24, 2022 01:55 PM Reporting Lab: [facility] [address] Performing Lab: [facility] [address] [place] [facility] URINALYS IS LEUKOCYTES [#/AREA] IN URINE SEDIMENT BY MICROSCOPY HIGH POWER FIELD >180 0 - 7 10/08 H Specimen Type: URINE No comment entered. Ordering Provider: ANKUSH BOWMAN Report Released Date/Time: Sep 24, 2022 01:55 PM Reporting Lab: [facility] [address] Performing Lab: [facility] [address] [place] [facility] URINALYS IS BACTERIA [PRESENCE] IN URINE SEDIMENT BY LIGHT MICROSCOPY MANY 10/08 Specimen Type: URINE No comment entered. Ordering Provider: ANKUSH BOWMAN Report Released Date/Time: Sep 24, 2022 01:55 PM Reporting Lab: [facility] [address] Performing Lab: [facility] [address] [place] [facility] URINALYS IS ERYTHROCYT ES [#/AREA] IN URINE SEDIMENT BY MICROSCOPY HIGH POWER FIELD 33 0 - 3 10/08 H Specimen Type: URINE No comment entered. Ordering Provider: ANKUSH BOWMAN Report Released Date/Time: Sep 24, 2022 01:55 PM Reporting Lab: [facility] [address] Performing Lab: [facility] [address] [place] [facility] URINALYS IS APPEARANCE OF URINE EX.TURBI D 10/08 Specimen Type: URINE No comment entered. Ordering Provider: ANKUSH BOWMAN Report Released Date/Time: Sep 24, 2022 01:55 PM Reporting Lab: [facility] [address] Performing Lab: [facility] [address] [place] [facility] URINALYS IS EPITHELIAL CELLS.SQUA MOUS [#/AREA] IN URINE SEDIMENT BY MICROSCOPY HIGH POWER FIELD 1 10/08 Specimen Type: URINE No comment entered. Ordering Provider: ANKUSH BOWMAN Report Released Date/Time: Sep 24, 2022 01:55 PM Reporting Lab: [facility] [address] Performing Lab: [facility] [address] [place] [facility] URINALYS IS HEMOGLOBIN [PRESENCE] IN URINE BY TEST STRIP 1+ 10/08 Specimen Type: URINE No comment entered. Ordering Provider: ANKUSH BOWMAN Report Released Date/Time: Sep 24, 2022 01:55 PM Reporting Lab: [facility] [address] Performing Lab: [facility] [address] [place] [facility] URINALYS IS NITRITE [PRESENCE] IN URINE BY TEST STRIP NEGATIVE 10/08 Specimen Type: URINE No comment entered. Ordering Provider: ANKUSH BOWMAN Report Released Date/Time: Sep 24, 2022 01:55 PM Reporting Lab: [facility] [address] Performing Lab: [facility] [address] [place] [facility] URINALYS IS LEUKOCYTE CLUMPS [#/VOLUME] IN URINE BY AUTOMATED COUNT PRESENT 10/08 Specimen Type: URINE No comment entered. Ordering Provider: ANKUSH BOWMAN Report Released Date/Time: Sep 24, 2022 01:55 PM Reporting Lab: [facility] [address] Performing Lab: [facility] [address] [place] [facility] URINALYS IS LEUKOCYTE ESTERASE [PRESENCE] IN URINE BY TEST STRIP 500 10/08 Specimen Type: URINE No comment entered. Ordering Provider: ANKUSH BOWMAN Report Released Date/Time: Sep 24, 2022 01:55 PM Reporting Lab: [facility] [address] Performing Lab: [facility] [address] [place] [facility] ALBUMIN ALBUMIN [MASS/VOLU ME] IN SERUM OR PLASMA 4.2 3.5 - 5.2 10/08 Specimen Type: PLASMA No comment entered. Ordering Provider: ANKUSH BOWMAN Report Released Date/Time: Sep 24, 2022 01:55 PM Reporting Lab: [facility] [address] Performing Lab: [facility] [address] [place] [facility] PRE-ALBU MIN PREALBUMIN [MASS/VOLU ME] IN SERUM OR PLASMA 28.4 14.0 - 45.0 10/08 Specimen Type: SERUM No comment entered. Ordering Provider: ANKUSH BOWMAN Report Released Date/Time: Sep 24, 2022 01:55 PM Reporting Lab: [facility] [address] Performing Lab: [facility] [address] [place] [facility] CBC & DIFF LEUKOCYTES [#/VOLUME] IN BLOOD BY AUTOMATED COUNT 7.32 4.0 - 11.0 10/08 Specimen Type: BLOOD Comment: Automated Differentia l Performed Ordering Provider: ANKUSH BOWMAN Report Released Date/Time: Sep 24, 2022 01:55 PM Reporting Lab: [facility] [address] Performing Lab: [facility] [address] [place] [facility] CBC & DIFF ERYTHROCYT ES [#/VOLUME] IN BLOOD BY AUTOMATED COUNT 4.80 4.6 - 6.2 10/08 Specimen Type: BLOOD Comment: Automated Differentia l Performed Ordering Provider: ANKUSH BOWMAN Report Released Date/Time: Sep 24, 2022 01:55 PM Reporting Lab: [facility] [address] Performing Lab: [facility] [address] [place] [facility] CBC & DIFF HEMOGLOBIN [MASS/VOLU ME] IN BLOOD 14.7 13.5 - 17.9 10/08 Specimen Type: BLOOD Comment: Automated Differentia l Performed Ordering Provider: ANKUSH BOWMAN Report Released Date/Time: Sep 24, 2022 01:55 PM Reporting Lab: [facility] [address] Performing Lab: [facility] [address] [place] [facility] CBC & DIFF HEMATOCRIT [VOLUME FRACTION] OF BLOOD BY AUTOMATED COUNT 44.2 41 - 54 10/08 Specimen Type: BLOOD Comment: Automated Differentia l Performed Ordering Provider: ANKUSH BOWMAN Report Released Date/Time: Sep 24, 2022 01:55 PM Reporting Lab: [facility] [address] Performing Lab: [facility] [address] [place] [facility] CBC & DIFF MCV [ENTITIC VOLUME] BY AUTOMATED COUNT 92.1 80 - 100 10/08 Specimen Type: BLOOD Comment: Automated Differentia l Performed Ordering Provider: ANKUSH BOWMAN Report Released Date/Time: Sep 24, 2022 01:55 PM Reporting Lab: [facility] [address] Performing Lab: [facility] [address] [place] [facility] CBC & DIFF MCH [ENTITIC MASS] BY AUTOMATED COUNT 30.6 27 - 33 10/08 Specimen Type: BLOOD Comment: Automated Differentia l Performed Ordering Provider: ANKUSH BOWMAN Report Released Date/Time: Sep 24, 2022 01:55 PM Reporting Lab: [facility] [address] Performing Lab: [facility] [address] [place] [facility] CBC & DIFF MCHC [MASS/VOLU ME] BY AUTOMATED COUNT 33.3 32.0 - 37.5 10/08 Specimen Type: BLOOD Comment: Automated Differentia l Performed Ordering Provider: ANKUSH BOWMAN Report Released Date/Time: Sep 24, 2022 01:55 PM Reporting Lab: [facility] [address] Performing Lab: [facility] [address] [place] [facility] CBC & DIFF PLATELETS [#/VOLUME] IN BLOOD BY AUTOMATED COUNT 144 150 - 400 10/08 L Specimen Type: BLOOD Comment: Automated Differentia l Performed Ordering Provider: ANKUSH BOWMAN Report Released Date/Time: Sep 24, 2022 01:55 PM Reporting Lab: [facility] [address] Performing Lab: [facility] [address] [place] [facility] CBC & DIFF PLATELET MEAN VOLUME [ENTITIC VOLUME] IN BLOOD BY AUTOMATED COUNT 10.8 7.4 - 10.4 10/08 H Specimen Type: BLOOD Comment: Automated Differentia l Performed Ordering Provider: ANKUSH BOWMAN Report Released Date/Time: Sep 24, 2022 01:55 PM Reporting Lab: [facility] [address] Performing Lab: [facility] [address] [place] [facility] CBC & DIFF NEUTROPHIL S/100 LEUKOCYTES IN BLOOD BY MANUAL COUNT 55.5 10/08 Specimen Type: BLOOD Comment: Automated Differentia l Performed Ordering Provider: ANKUSH BOWMAN Report Released Date/Time: Sep 24, 2022 01:55 PM Reporting Lab: [facility] [address] Performing Lab: [facility] [address] [place] [facility] CBC & DIFF LYMPHOCYTE S/100 LEUKOCYTES IN BLOOD BY MANUAL COUNT 31.4 10/08 Specimen Type: BLOOD Comment: Automated Differentia l Performed Ordering Provider: ANKUSH BOWMAN Report Released Date/Time: Sep 24, 2022 01:55 PM Reporting Lab: [facility] [address] Performing Lab: [facility] [address] [place] [facility] CBC & DIFF MONOCYTES/ 100 LEUKOCYTES IN BLOOD BY AUTOMATED COUNT 10.2 10/08 Specimen Type: BLOOD Comment: Automated Differentia l Performed Ordering Provider: ANKUSH BOWMAN Report Released Date/Time: Sep 24, 2022 01:55 PM Reporting Lab: [facility] [address] Performing Lab: [facility] [address] [place] [facility] CBC & DIFF EOSINOPHIL S/100 LEUKOCYTES IN BLOOD BY AUTOMATED COUNT 2.2 10/08 Specimen Type: BLOOD Comment: Automated Differentia l Performed Ordering Provider: ANKUSH BOWMAN Report Released Date/Time: Sep 24, 2022 01:55 PM Reporting Lab: [facility] [address] Performing Lab: [facility] [address] [place] [facility] CBC & DIFF BASOPHILS/ 100 LEUKOCYTES IN BLOOD BY MANUAL COUNT 0.4 10/08 Specimen Type: BLOOD Comment: Automated Differentia l Performed Ordering Provider: ANKUSH BOWMAN Report Released Date/Time: Sep 24, 2022 01:55 PM Reporting Lab: [facility] [address] Performing Lab: [facility] [address] [place] [facility] CBC & DIFF ERYTHROCYT E DISTRIBUTI ON WIDTH [RATIO] BY AUTOMATED COUNT 15.9 11.5 - 14.5 10/08 H Specimen Type: BLOOD Comment: Automated Differentia l Performed Ordering Provider: ANKUSH BOWMAN Report Released Date/Time: Sep 24, 2022 01:55 PM Reporting Lab: [facility] [address] Performing Lab: [facility] [address] [place] [facility] CBC & DIFF LYMPHOCYTE S [#/VOLUME] IN BLOOD BY AUTOMATED COUNT 2.30 1.0 - 4.0 10/08 Specimen Type: BLOOD Comment: Automated Differentia l Performed Ordering Provider: ANKUSH BOWMAN Report Released Date/Time: Sep 24, 2022 01:55 PM Reporting Lab: [facility] [address] Performing Lab: [facility] [address] [place] [facility] CBC & DIFF MONOCYTES [#/VOLUME] IN BLOOD BY AUTOMATED COUNT 0.75 0.1 - 1.0 10/08 Specimen Type: BLOOD Comment: Automated Differentia l Performed Ordering Provider: ANKUSH BOWMAN Report Released Date/Time: Sep 24, 2022 01:55 PM Reporting Lab: [facility] [address] Performing Lab: [facility] [address] [place] [facility] CBC & DIFF NEUTROPHIL S [#/VOLUME] IN BLOOD BY AUTOMATED COUNT 4.06 2.0 - 7.7 10/08 Specimen Type: BLOOD Comment: Automated Differentia l Performed Ordering Provider: ANKUSH BOWMAN Report Released Date/Time: Sep 24, 2022 01:55 PM Reporting Lab: [facility] [address] Performing Lab: [facility] [address] [place] [facility] CBC & DIFF EOSINOPHIL S [#/VOLUME] IN BLOOD BY AUTOMATED COUNT 0.16 0 - 0.5 10/08 Specimen Type: BLOOD Comment: Automated Differentia l Performed Ordering Provider: ANKUSH BOWMAN Report Released Date/Time: Sep 24, 2022 01:55 PM Reporting Lab: [facility] [address] Performing Lab: [facility] [address] [place] [facility] CBC & DIFF BASOPHILS [#/VOLUME] IN BLOOD BY AUTOMATED COUNT 0.03 0 - 0.2 10/08 Specimen Type: BLOOD Comment: Automated Differentia l Performed Ordering Provider: ANKUSH BOWMAN Report Released Date/Time: Sep 24, 2022 01:55 PM Reporting Lab: [facility] [address] Performing Lab: [facility] [address] [place] [facility] CBC & DIFF IG(META,MY MLAACHI,PRO) 0.3 10/08 Specimen Type: BLOOD Comment: Automated Differentia l Performed Ordering Provider: ANKUSH BOWMAN Report Released Date/Time: Sep 24, 2022 01:55 PM Reporting Lab: [facility] [address] Performing Lab: [facility] [address] [place] [facility] CBC & DIFF IMMATURE GRANULOCYT ES [PRESENCE] IN BLOOD BY AUTOMATED COUNT 0.02 0 - 0.1 10/08 Specimen Type: BLOOD Comment: Automated Differentia l Performed Ordering Provider: ANKUSH BOWMAN Report Released Date/Time: Sep 24, 2022 01:55 PM Reporting Lab: [facility] [address] Performing Lab: [facility] [address] [place] [facility] COMPREHE NSIVE METABOLI C PANEL+MG CREATININE [MASS/VOLU ME] IN SERUM OR PLASMA 0.7 0.7 - 1.2 10/08 Specimen Type: PLASMA No comment entered. Ordering Provider: ANKUSH BOWMAN Report Released Date/Time: Sep 24, 2022 01:55 PM Reporting Lab: [facility] [address] Performing Lab: [facility] [address] [place] [facility] COMPREHE NSIVE METABOLI C PANEL+MG UREA NITROGEN [MASS/VOLU ME] IN SERUM OR PLASMA 16 8 - 26 10/08 Specimen Type: PLASMA No comment entered. Ordering Provider: ANKUSH BOWMAN Report Released Date/Time: Sep 24, 2022 01:55 PM Reporting Lab: [facility] [address] Performing Lab: [facility] [address] [place] [facility] COMPREHE NSIVE METABOLI C PANEL+MG GLUCOSE [MASS/VOLU ME] IN SERUM OR PLASMA 94 70 - 100 10/08 Specimen Type: PLASMA No comment entered. Ordering Provider: ANKUSH BOWMAN Report Released Date/Time: Sep 24, 2022 01:55 PM Reporting Lab: [facility] [address] Performing Lab: [facility] [address] [place] [facility] COMPREHE NSIVE METABOLI C PANEL+MG SODIUM [MOLES/VOL UME] IN SERUM OR PLASMA 138 136 - 145 10/08 Specimen Type: PLASMA No comment entered. Ordering Provider: ANKUSH BOWMAN Report Released Date/Time: Sep 24, 2022 01:55 PM Reporting Lab: [facility] [address] Performing Lab: [facility] [address] [place] [facility] COMPREHE NSIVE METABOLI C PANEL+MG POTASSIUM [MOLES/VOL UME] IN SERUM OR PLASMA 3.9 3.5 - 5.1 10/08 Specimen Type: PLASMA No comment entered. Ordering Provider: ANKUSH BOWMAN Report Released Date/Time: Sep 24, 2022 01:55 PM Reporting Lab: [facility] [address] Performing Lab: [facility] [address] [place] [facility] COMPREHE NSIVE METABOLI C PANEL+MG CHLORIDE [MOLES/VOL UME] IN SERUM OR PLASMA 101 98 - 107 10/08 Specimen Type: PLASMA No comment entered. Ordering Provider: ANKUSH BOWMAN Report Released Date/Time: Sep 24, 2022 01:55 PM Reporting Lab: [facility] [address] Performing Lab: [facility] [address] [place] [facility] COMPREHE NSIVE METABOLI C PANEL+MG CARBON DIOXIDE, TOTAL [MOLES/VOL UME] IN SERUM OR PLASMA 10/08 Specimen Type: PLASMA No comment entered. Ordering Provider: ANKUSH BOWMAN Report Released Date/Time: Sep 24, 2022 01:55 PM Reporting Lab: [facility] [address] Performing Lab: [facility] [address] [place] [facility] COMPREHE NSIVE METABOLI C PANEL+MG CALCIUM [MASS/VOLU ME] IN SERUM OR PLASMA 9.7 8.4 - 10.2 10/08 Specimen Type: PLASMA No comment entered. Ordering Provider: ANKUSH BOWMAN Report Released Date/Time: Sep 24, 2022 01:55 PM Reporting Lab: [facility] [address] Performing Lab: [facility] [address] [place] [facility] COMPREHE NSIVE METABOLI C PANEL+MG PROTEIN [MASS/VOLU ME] IN SERUM OR PLASMA 7.6 6.0 - 8.3 10/08 Specimen Type: PLASMA No comment entered. Ordering Provider: ANKUSH BOWMAN Report Released Date/Time: Sep 24, 2022 01:55 PM Reporting Lab: [facility] [address] Performing Lab: [facility] [address] [place] [facility] COMPREHE NSIVE METABOLI C PANEL+MG ALBUMIN [MASS/VOLU ME] IN SERUM OR PLASMA 4.2 3.5 - 5.2 10/08 Specimen Type: PLASMA No comment entered. Ordering Provider: ANKUSH BOWMAN Report Released Date/Time: Sep 24, 2022 01:55 PM Reporting Lab: [facility] [address] Performing Lab: [facility] [address] [place] [facility] COMPREHE NSIVE METABOLI C PANEL+MG BILIRUBIN. TOTAL [MASS/VOLU ME] IN SERUM OR PLASMA 0.6 0.2 - 1.2 10/08 Specimen Type: PLASMA No comment entered. Ordering Provider: ANKUSH BOWMAN Report Released Date/Time: Sep 24, 2022 01:55 PM Reporting Lab: [facility] [address] Performing Lab: [facility] [address] [place] [facility] COMPREHE NSIVE METABOLI C PANEL+MG MAGNESIUM [MASS/VOLU ME] IN SERUM OR PLASMA 2.1 1.6 - 2.6 10/08 Specimen Type: PLASMA No comment entered. Ordering Provider: ANKUSH BOWMAN Report Released Date/Time: Sep 24, 2022 01:55 PM Reporting Lab: [facility] [address] Performing Lab: [facility] [address] [place] [facility] COMPREHE NSIVE METABOLI C PANEL+MG ANION GAP IN SERUM OR PLASMA 9 5 - 15 10/08 Specimen Type: PLASMA No comment entered. Ordering Provider: ANKUSH BOWMAN Report Released Date/Time: Sep 24, 2022 01:55 PM Reporting Lab: [facility] [address] Performing Lab: [facility] [address] [place] [facility] COMPREHE NSIVE METABOLI C PANEL+MG ALKALINE PHOSPHATAS E [ENZYMATIC ACTIVITY/V OLUME] IN SERUM OR PLASMA 96 40 - 150 10/08 Specimen Type: PLASMA No comment entered. Ordering Provider: ANKUSH BOWMAN Report Released Date/Time: Sep 24, 2022 01:55 PM Reporting Lab: [facility] [address] Performing Lab: [facility] [address] [place] [facility] COMPREHE NSIVE METABOLI C PANEL+MG ALANINE AMINOTRANS FERASE [ENZYMATIC ACTIVITY/V OLUME] IN SERUM OR PLASMA 29 <55 - 55 10/08 Specimen Type: PLASMA No comment entered. Ordering Provider: ANKUSH BOWMAN Report Released Date/Time: Sep 24, 2022 01:55 PM Reporting Lab: [facility] [address] Performing Lab: [facility] [address] [place] [facility] COMPREHE NSIVE METABOLI C PANEL+MG ASPARTATE AMINOTRANS FERASE [ENZYMATIC ACTIVITY/V OLUME] IN SERUM OR PLASMA 22 <34 - 34 10/08 Specimen Type: PLASMA No comment entered. Ordering Provider: ANKUSH BOWMAN Report Released Date/Time: Sep 24, 2022 01:55 PM Reporting Lab: [facility] [address] Performing Lab: [facility] [address] [place] [facility] COMPREHE NSIVE METABOLI C PANEL+MG GLOMERULAR FILTRATION RATE/1.73 SQ M.PREDICTE D [VOLUME RATE/AREA] IN SERUM, PLASMA OR BLOOD BY CREATININE -BASED FORMULA (CKD-EPI) >90 60 10/08 Specimen Type: PLASMA No comment entered. Ordering Provider: ANKUSH BOWMAN Report Released Date/Time: Sep 24, 2022 01:55 PM Reporting Lab: [facility] [address] Performing Lab: [facility] [address] [place] [facility] CYSTATIN C WITH EGFR CYSTATIN C [MASS/VOLU ME] IN SERUM OR PLASMA 1.38 0.51 - 1.05 10/08 H Specimen Type: PLASMA No comment entered. Ordering Provider: ANKUSH BOWMAN Report Released Date/Time: Sep 24, 2022 01:55 PM Reporting Lab: [facility] [address] Performing Lab: [facility] [address] [place] [facility] CYSTATIN C WITH EGFR CYSTATIN C AND GLOMERULAR FILTRATION RATE BY CYSTATIN-B ASED FORMULA PANEL - SERUM OR PLASMA 48 60 10/08 L Specimen Type: PLASMA No comment entered. Ordering Provider: ANKUSH BOWMAN Report Released Date/Time: Sep 24, 2022 01:55 PM Reporting Lab: [facility] [address] Performing Lab: [facility] [address] [place] [facility] VIT D 25-OH,TO ZAMZAM 25-HYDROXY VITAMIN D3 [MASS/VOLU ME] IN SERUM OR PLASMA 54 12 - 50 10/08 H Specimen Type: SERUM No comment entered. Ordering Provider: ANKUSH BOWMAN Report Released Date/Time: Sep 24, 2022 01:55 PM Reporting Lab: [facility] [address] Performing Lab: [facility] [address] [place] [facility] CBC LEUKOCYTES [#/VOLUME] IN BLOOD BY AUTOMATED COUNT 6.27 4.0 - 11.0 05/28 Specimen Type: BLOOD No comment entered. Ordering Provider: GERMANIA HANSON Report Released Date/Time: May 28, 2022 03:06 PM Reporting Lab: [facility] [address] Performing Lab: [facility] [address] [facility] CBC ERYTHROCYT ES [#/VOLUME] IN BLOOD BY AUTOMATED COUNT 4.43 4.6 - 6.2 05/28 L Specimen Type: BLOOD No comment entered. Ordering Provider: GERMANIA HANSON Report Released Date/Time: May 28, 2022 03:06 PM Reporting Lab: [facility] [address] Performing Lab: [facility] [address] [facility] CBC HEMOGLOBIN [MASS/VOLU ME] IN BLOOD 12.9 13.5 - 17.9 05/28 L Specimen Type: BLOOD No comment entered. Ordering Provider: GERMANIA HANSON Report Released Date/Time: May 28, 2022 03:06 PM Reporting Lab: [facility] [address] Performing Lab: [facility] [address] [facility] CBC HEMATOCRIT [VOLUME FRACTION] OF BLOOD BY AUTOMATED COUNT 40.2 41 - 54 05/28 L Specimen Type: BLOOD No comment entered. Ordering Provider: GERMANIA HANSON Report Released Date/Time: May 28, 2022 03:06 PM Reporting Lab: [facility] [address] Performing Lab: [facility] [address] [facility] CBC MCV [ENTITIC VOLUME] BY AUTOMATED COUNT 90.7 80 - 100 05/28 Specimen Type: BLOOD No comment entered. Ordering Provider: GERMANIA HANSON Report Released Date/Time: May 28, 2022 03:06 PM Reporting Lab: [facility] [address] Performing Lab: [facility] [address] [facility] CBC MCH [ENTITIC MASS] BY AUTOMATED COUNT 29.1 27 - 33 05/28 Specimen Type: BLOOD No comment entered. Ordering Provider: GERMANIA HANSON Report Released Date/Time: May 28, 2022 03:06 PM Reporting Lab: [facility] [address] Performing Lab: [facility] [address] [facility] CBC MCHC [MASS/VOLU ME] BY AUTOMATED COUNT 32.1 32.0 - 37.5 05/28 Specimen Type: BLOOD No comment entered. Ordering Provider: GERMANIA HANSON Report Released Date/Time: May 28, 2022 03:06 PM Reporting Lab: [facility] [address] Performing Lab: [facility] [address] [facility] CBC PLATELETS [#/VOLUME] IN BLOOD BY AUTOMATED COUNT 183 150 - 400 05/28 Specimen Type: BLOOD No comment entered. Ordering Provider: GERMANIA HANSON Report Released Date/Time: May 28, 2022 03:06 PM Reporting Lab: [facility] [address] Performing Lab: [facility] [address] [facility] CBC PLATELET MEAN VOLUME [ENTITIC VOLUME] IN BLOOD BY AUTOMATED COUNT 10.6 7.4 - 10.4 05/28 H Specimen Type: BLOOD No comment entered. Ordering Provider: GERMANIA HANSON Report Released Date/Time: May 28, 2022 03:06 PM Reporting Lab: [facility] [address] Performing Lab: [facility] [address] [facility] CBC ERYTHROCYT E DISTRIBUTI ON WIDTH [RATIO] BY AUTOMATED COUNT 13.5 11.5 - 14.5 05/28 Specimen Type: BLOOD No comment entered. Ordering Provider: GERMANIA HANSON Report Released Date/Time: May 28, 2022 03:06 PM Reporting Lab: [facility] [address] Performing Lab: [facility] [address] [facility] Encounters Combined list of: 1) Encounters from Department of Veterans Affairs facilities going back up to thelast 18 months. 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 Location Location Details Encounter Type Encounter Number Reason For Visit Attending Provider ADM Date DC Date Status Disposition Source [facility] Outpatient Encounter [id number] 09/20 [facility] OFFICE O/P EST MINIMAL PROB [id number] Diagnos is: ICD-10- CM G82.20 Paraple mary kay, unspeci fied
Jey PATTON V 10/08 [facility] ASSISTIVE TECHNOLOGY ASSESS [id number] Diagnos is: ICD-10- CM Z73.6 Limitat ion of activit ies due to disabil ity<br/ > BOUSLOG,RY AN P 10/08 [facility] Outpatient Encounter [id number] 10/09 [facility] Outpatient Encounter [id number] 10/11 [facility] HC PRO PHONE CALL 5-10 MIN [id number] Diagnos is: ICD-10- CM Z73.6 Limitat ion of activit ies due to disabil ity<br/ > AVE HALEY 12/13 [facility] Outpatient Encounter [id number] 01/08 [facility] PRO PHONE CALL 21-30 MIN [id number] Diagnos is: ICD-10- CM G82.20 Paraple mary kay, unspeci fied
Hever CASTRO 01/08 [facility] Outpatient Encounter [id number] 01/09 [facility] DIABETIC MANAGEMENT PROGRAM, [id number] Diagnos is: ICD-10- CM G82.20 Paraple mary kay, unspeci fied
TIGIST BASSETT 01/30 [facility] Outpatient Encounter [id number] 02/05 [facility] MTMS BY PHARM ADDL 15 MIN [id number] Diagnos is: ICD-10- CM G82.20 Paraple mary kay, unspeci fied
MANPREET BARRETT N 02/05 [facility] OT EVAL LOW COMPLEX 30 MIN [id number] Diagnos is: ICD-10- CM Z73.6 Limitat ion of activit ies due to disabil ity<br/ > Bryn PARDO 02/05 [facility] OFF/OP EST MAY X REQ PHY/QHP [id number] Diagnos is: ICD-10- CM G82.20 Paraple mary kay, unspeci fied
JOSUÉ ZAMORA 02/05 [facility] PSYCH DIAGNOSTIC EVALUATION [id number] Diagnos is: ICD-10- CM F32.A Depress ion, unspeci fied
BINU GAMEZ 02/05 [facility] OFFICE O/P EST MOD 30-39 MIN [id number] Diagnos is: ICD-10- CM G82.20 Paraple mary kay, unspeci fied
RYDERGINETTE, LOGAN Kathleen 02/05 [facility] PSYCH DIAGNOSTIC EVALUATION [id number] Diagnos is: ICD-10- CM G82.20 Paraple mary kay, unspeci fied
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
VIOLA YOON 02/08 [facility] OFFICE O/P EST HI 40-54 MIN [id number] Diagnos is: ICD-10- CM G82.20 Paraple mary kay, unspeci fied
GRACIEMS LOGAN Kathleen 02/13 [facility] WHEELCHAIR MNGMENT TRAINING [id number] Diagnos is: ICD-10- CM Z73.6 Limitat ion of activit ies due to disabil ity<br/ > BOUSLOG,RY AN P 02/13 [facility] Outpatient Encounter [phone] 02/19 [facility] HC PRO PHONE CALL 11-20 MIN [phone] Diagnos is: ICD-10- CM Z73.6 Limitat ion of activit ies due to disabil ity<br/ > BOUSLOG,RY AN P 04/23 [facility] [place] Outpatient Encounter [id number] 04/24 [place] [facility] [place] [facility] Outpatient Encounter [phone] 05/24 [facility] [place] [facility] OFF/OP EST MARCH X REQ PHY/QHP [phone] Diagnos is: ICD-10- CM G82.20 Paraple mary kay, unspeci fied
[place] NDA 05/28 [facility] [place] [facility] WHEELCHAIR MNGMENT TRAINING [phone] Diagnos is: ICD-10- CM Z73.6 Limitat ion of activit ies due to disabil ity<br/ > BOUSLOG,RY AN P 06/10 [facility] [place] [facility] Outpatient Encounter [id number] 10/28 [facility] [place] [facility] Outpatient Encounter [phone] 11/20 [facility] Social History Combined list of available smoking, tobacco, and other social history from 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 Social History Type Response Date Comment Sourc e Tobacco smoking status [facility] NEVER USED 05/28/20 22 [facility] This section is an empty social history section. DoD Advance Directives List of completed, amended, or rescinded Advance Directives on record at Department of 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 An actual copy of the Directive is not included. Date Advance Directive Provider Source 02/05/2023 ADVANCE DIRECTIVE DISCUSSION [facility]
--- OUTSIDE RECORDS SUMMARY | 2024-03-30 13:26 | XMS_ITS | Clinical Summary ---
Author Name Unknown Organization [email or web address] [facility] Address [place], [place] [address] Care Team Providers Care Record Press Tender Name Role Phone Zelalem Cohen MD Unavailable [phone] May Randle MD Unavailable [phone] Franklin Squires MD Primary Care Provider Fred Craft Unavailable Diane Charles MD Unavailable [phone] Julia Ware RN Unavailable [phone] Allergies Active Allergy Reactions Criticality Noted Date [...] bedIndications:Non-heal ing surgical wound, subsequent encounter Drive [employer] 8 inch low loss mattress and 1/2 rails. Semi-electric bed. Length of need 6 weeks. Bed lining stitcher:no 1 unit 018 Active acetaminophen (TYLENOL EXTRA [...] 60mm, Cut-to-Fit 01/16 - 2 11/18. Item #[id number]. 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 180 Tablet 3 023 Active Catheter kitIndications:Neurogen ic bladder As directed. [...] BY MOUTH AT BEDTIME 120 Tablet 2 024 Active oxyCODONE 10 mg tabletIndications:Chron ic pain syndrome TAKE 1 TABLET BY MOUTH EVERY 6 HOURS 120 Tablet 024 Active Catheter (De La Cruz Catheter) 24 Fr miscIndications:Suprapu bic catheter (HC) As directed. 3 Each 3 024 Active furosemide (LASIX) 40 mg tabletIndications:Bilat eral lower extremity edema TAKE ONE TABLET BY MOUTH TWICE A DAY 180 Tablet 1 024 Active furosemide (LASIX) 40 mg tabletIndications:Bilat eral lower extremity edema Take 1 Tablet (40 mg) by mouth two times daily. 180 Tablet 3 023 2023 Discontinued Catheter (De La Cruz Catheter) 22 Fr miscIndications:Neuroge halina bladder As directed. 3 Each 3 024 2023 Discontinued(* Medication adjustment) oxyCODONE 10 mg tabletIndications:Chron ic pain syndrome Take 1 Tablet (10 mg) by mouth every 6 hours. 120 Tablet 024 2023 Discontinued LORazepam (ATIVAN) 0.5 mg tabIndications:Parapleg ia (HC) Take 1 Tablet (0.5 mg) by mouth every 6 hours if needed for Anxiety. 120 Tablet 2 024 2023 Discontinued Catheter (De La Cruz Catheter) 24 Fr miscIndications:Suprapu bic catheter (HC) As directed. 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 long-term current use of insulin 01/06/2021 02/14/2024 [...] delivery 04/16/2007 10/01/2007 Overview: S/P IVC Filter [facility] (current) use of anticoagulants 02/19/2007 09/27/2008 Depressive disorder, not elsewhere classified 02/14/20 07 01/15/2018 Abnormality of gait 12/24/2006 09/27/20 08 Urinary tract infection, site not specified 12/24/2006 01/15/2018 BENIGN ESSENTIAL HYPERTENSION 12/24/2006 04/17/2016 Overview: borderline Necrotizing fasciitis 2018 Type 2 diabetes mellitus Encounters Date Type Department Care Team Description 03/28/2024 Refill [facility] [address] [place] [address] Franklin Squires MD Refill Request (Furosemide) 03/20/2024 4:32 PM CDT - 03/20/2024 8:34 PM CDT Emergency [facility] [address] [place] [address] Quan Corbett PA Suprapubic catheter dysfunction, initial encounter (HC) (Primary Dx) Discharge Disposition: Home Self Care 03/20/2024 Travel 03/20/2024 Telephone [facility] [address] [place] [address] Franklin Squires MD other (FYI / UPDATE ) 03/19/2024 Anticoagulation (warfarin) [address] [address] 1, [facility] Anticoagulation (acelis) 03/13/2024 2:10 PM CDT Orders Only [facility] [address] [place] [address] Lab, [facility] 03/13/2024 Travel 03/10/2024 Telephone [facility] [address] [place] [address] Franklin Squires MD Form (Home Health Certification and Plan of Care. ) 03/10/[address] [phone] Franlkin Squires MD Form (60 day summary report. SNV 2x/wk for wound care.) 03/05/2024 Anticoagulation (warfarin) [address] [phone] , [facility] Anticoagulation (Acelis) 03/02/[address] [address] Gabrielle Prado PA Refill Request (Oxycodone) 03/02/[address] [phone] Franklin Squires MD Refill Request (Lorazepam) 02/24/2024 Patient Outreach [facility] - Advanced Care Team [address] [place] [address] Archana Wright RN Complex Care Management (ACO outreach engagement ) 02/24/[address] [phone] Franklin Squires MD Form (Physician Orders. Medication order: Lorazapam 0.5 mg; oral tablet. Amoxicillin- clavulanate 875mg) 02/24/[address] [phone] Franklin Squires MD Refill Request (LORazepam (ATIVAN) 0.5 mg tab) 02/20/2024 1:30 PM CDT Office Visit [address] [phone] Franklin Squires MD Hospital F/U (02/15/24) 02/20/2024 Anticoagulation (warfarin) [address] [address] 1, [facility] Anticoagulation 02/20/2024 Travel 02/18/2024 Anticoagulation (warfarin) [facility] [address] [place] [address], [facility] Anticoagulation (acelis) 02/18/2024 Patient Outreach [facility] [address] [place] [address] Archana Stein, RN Primary RN Care Management (Hospital DC:02/17/24/LACE:47/[facility]); Hospital F/U 02/17/2024 Telephone [facility] [address] [place] [address] Franklin Squires MD Form (Service Order: Hold. Acute care [facility]. Effective: 02/15/2024) 02/15/2024 4:34 PM CDT - 02/17/2024 2:45 PM CDT Hospital Encounter [facility] [address] [place] [address] [facility] Internal Gilson Renee MD Khakbaznejad, Alireza, MD Pneumonia due to infectious organism, unspecified laterality, unspecified part of lung (Primary Dx); History of DVT (deep vein thrombosis); Pressure injury of right buttock, stage 1 Discharge Disposition: Home Self Care 02/15/2024 Travel 02/15/2024 Refill [facility] [address] [place] [address] 1, [facility] Refill Request (Warfarin) 02/14/2024 3:10 PM CDT - 02/15/2024 2:45 PM CDT Hospital Encounter [facility] 200 [place] [address] Quan Corbett, ROXY Ramírez, MD Terence Bruno Austin Christopher, DO Beardsley, Jonathan Philip, AUTO PORTER Jezeski, Malini F, AUTO PORTER Leukocytosis, unspecified type (Primary Dx); Fever, unspecified fever cause; Chills; Tachycardia; Pulmonary infiltrate; Elevated C-reactive protein (CRP); Pressure injury of deep tissue of left buttock Discharge Disposition: Critical [facility] 02/14/2024 Travel 02/05/2024 Anticoagulation (warfarin) [address] [phone] [place] [address] [facility] Anticoagulation (Acelis) 01/28/[address] [phone] Franklin Squires MD Refill Request (Oxycodone) 01/22/[address] [phone] Franklin Squires MD Form (Standard Written Order: Rehab Accessories./Cushion, Quadtro Select HI PRO 20x20 or 11x11 Cell) 01/22/[address] [phone] Franklin Squires MD Form (Standard Written Order: Repairs/Battery, M34 Gel 60AH 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) 01/22/2024 Anticoagulation (warfarin) [address] [phone] [place] [address] [facility] Anticoagulation (Acelis) 01/16/[address] [phone] Franklin Squires MD Refill Request (Bupropion) 01/09/[address] [phone] Franklin Squires MD Form (Home Health Certification and Plan of Care.) 01/08/[address] [place] [address] Franklin Squires MD Form ([facility] 60 Day Summary Report) 01/08/2024 Anticoagulation (warfarin) [address] [place] [address] 1, [facility] Anticoagulation (acelis) 01/01/2024 Anticoagulation (warfarin) [address] [place] [address] 1, [facility] Anticoagulation (Acelis) from Last 3 Months Immunizations Name Administration Dates Next Due COVID-19 vaccine (Preedo-Bio NTech 30mcg/0.3mL) 12YO+ BIVALENT PF, MDV 10/22/2022 COVID-19 vaccine (Preedo-Bio NTech 30mcg/0.3mL) PF, MDV 01/25/2021,01/02/2021 Influenza A [...] Description 04/03/2024 2:30 PM CDT Office Visit [facility] [address] [facility] [place] [address] Franklin Squires MD [address] [facility] [place] [address] Health Maintenance Due Date Last Done Comments [...] HOME MONITOR AC Routine 01/08/2024 12:00 AM REFRIGERATOR REPAIR TECHNICIAN HOME MONITOR AC Routine 01/01/2024 12:00 AM REFRIGERATOR REPAIR TECHNICIAN from Last 3 Months Results * BLADDER [...] ?Risks discussed: ??Pain, incomplete procedure and infection [place] protocol: ??Procedure explained and questions answered to [...] Quan RAMSEY PROCEDURE O RD * (ABNORMAL) AEROBIC BACTERIAL CULTURE, STAIN (03/20/2024 5:01 PM CDT) CULTURE RESULT(A) 03/28/2024 11:28 AM CDT [facility] CULTURE 2+ Klebsiella pneumoniae 03/28/2024 11:28 AM CDT [facility] CULTURE 2+ Pseudomonas aeruginosa 03/28/2024 11:28 AM CDT [facility] CULTURE 2+ Staphylococcus aureus 03/28/2024 11:28 AM T [facility] Comment:Isolate is MRSA (Met hicillin-resistant Staph aureus). CULTURE 2+ Mixed brigette present 03/28/2024 11:28 AM CDT [facility] GRAM STAIN No PMNs 03/28/2024 11:28 AM CDT [facility] GRAM STAIN No Epithelial cells 03/28/2024 11:28 AM CDT [facility] GRAM STAIN No RBCs 03/28/2024 11:28 AM CDT [facility] GRAM STAIN 4+ Gram Negative Bacilli 03/28/2024 11:28 AM CDT [facility] GRAM STAIN 2+ Gram Positive Cocci 03/28/2024 11:28 AM CDT [facility] Other SPECIMEN FROM PENIS / Unknown Non-Blood / Unknown 03/20/2024 5:01 PM CDT 03/20/2024 5:05 PM CDT [facility] - 03/28/2024 11:28 AM CDT Mixed brigette, No ??beta- Streptococcus or Streptococcus pneumoniae. Organism Antibiotic Method Susceptibility Klebsiella pneumoniae TRIMETHOPRIM/SULF <=1/19: S Klebsiella pneumoniae AMPICILLIN >=32: R Klebsiella pneumoniae GENTAMICIN <=1: S Klebsiella pneumoniae CEFTRIAXONE <=1: S Klebsiella pneumoniae CEFTAZIDIME <=1: S Klebsiella pneumoniae LEVOFLOXACIN 1: I Klebsiella pneumoniae CIPROFLOXACIN <=0.25: S Klebsiella pneumoniae PIPERACILLIN/TAZO <=4: S Klebsiella pneumoniae AMPICILLIN/SULBACTAM 4: S Klebsiella pneumoniae CEFEPIME <=1: S Klebsiella pneumoniae TOBRAMYCIN <=1: S Klebsiella pneumoniae MEROPENEM <=0.25: S Pseudomonas aeruginosa CEFTAZIDIME 4: S Pseudomonas aeruginosa LEVOFLOXACIN >=8: R Pseudomonas aeruginosa CIPROFLOXACIN >=4: R Pseudomonas aeruginosa PIPERACILLIN/TAZO 8: S Pseudomonas aeruginosa CEFEPIME 8: S Pseudomonas aeruginosa TOBRAMYCIN <=1: S Pseudomonas aeruginosa MEROPENEM <=0.25: S Staphylococcus aureus OXACILLIN >=4: R Staphylococcus aureus CLINDAMYCIN >=4: R Staphylococcus aureus DOXYCYCLINE <=0.5: S Staphylococcus aureus CEFAZOLIN R Staphylococcus aureus VANCOMYCIN 1: S Staphylococcus aureus TRIMETHOPRIM/SULF <=0.5/9.5: S Quan RAMSEY MICROBIOLOG Y [facility] [address] [place] [address], * (ABNORMAL) CBC WITH AUTO DIFFERENTIAL (03/20/2024 4:58 PM [facility]) Only the most recent of3 resultswithin the time period is included. WHITE BLOOD COUNT 10.9 4.5 - 11.0 thou/cu mm 03/20/2024 5:06 PM [facility] RED BLOOD COUNT 4.92 4.30 - 5.90 mil/cu mm 03/20/2024 5:06 PM [facility] HEMOGLOBIN 12.7(L) 13.5 - 17.5 g/dL 03/20/2024 5:06 PM [facility] HEMATOCRIT 40.0 37.0 - 53.0 % 03/20/2024 5:06 PM [facility] MCV 81 80 - 100 fL 03/20/2024 5:06 PM [facility] MCH 25.8(L) 26.0 - 34.0 pg 03/20/2024 5:06 PM [facility] MCHC 31.8(L) 32.0 - 36.0 g/dL 03/20/2024 5:06 PM [facility] RDW 18.1(H) 11.5 - 15.5 % 03/20/2024 5:06 PM [facility] PLATELET COUNT 263 140 - 440 thou/cu mm 03/20/2024 5:06 PM [facility] MPV 9.4 6.5 - 11.0 fL 03/20/2024 5:06 PM [facility] % NEUT 68.4 % 03/20/2024 5:06 PM [facility] % LYMPH 20.1 % 03/20/2024 5:06 PM [facility] % MONO 8.4 % 03/20/2024 5:06 PM [facility] % EOS 2.8 % 03/20/2024 5:06 PM [facility] % BASO 0.3 % 03/20/2024 5:06 PM [facility] ABSOLUTE NEUTROPHILS 7.4(H) 1.7 - 7.0 thou/cu mm 03/20/2024 5:06 PM CDT [facility] ABSOLUTE LYMPHOCYTES 2.2 0.9 - 2.9 thou/cu mm 03/20/2024 5:06 PM CDT [facility] ABSOLUTE MONOCYTES 0.9(H) <0.9 thou/cu mm 03/20/2024 5:06 PM CDT [facility] ABSOLUTE EOSINOPHILS 0.3 <0.5 thou/cu mm 03/20/2024 5:06 PM CDT [facility] ABSOLUTE BASOPHILS 0.0 <0.3 thou/cu mm 03/20/2024 5:06 PM CDT [facility] Blood BLOOD SPECIMEN / Unknown Butterfly / Unknown 03/20/2024 4:58 PM CDT 03/20/2024 5:02 PM CDT Quan RAMSEY HEMATOLOGY Performing Organization Address [facility]/ZIP Co de Phone Number [facility] [address] [place] [address] * LACTATE VENOUS (03/20/2024 4:58 PM CDT) Only the most recent of2 resultswithin the time period is included. Pathologist [facility] LACTATE,VENOUS 1.3 0.5 - 2.0 mmol/L 03/20/2024 5:21 PM CDT [facility] Blood BLOOD SPECIMEN / Unknown Butterfly / Unknown 03/20/2024 4:58 PM CDT 03/20/2024 5:02 PM CDT Quan RAMSEY CHEMISTRY [facility] [address] [place] [address] * (ABNORMAL) BASIC METABOLIC PANEL (03/20/2024 4:58 PM CDT) SODIUM 139 136 - 145 mmol/L 03/20/2024 5:22 PM CDT [facility] POTASSIUM 4.5 3.5 - 5.1 mmol/L 03/20/2024 5:22 PM [facility] CHLORIDE 100 98 - 107 mmol/L 03/20/2024 5:22 PM [facility] CO2,TOTAL 29 22 - 29 mmol/L 03/20/2024 5:22 PM [facility] ANION GAP 10 5 - 18 03/20/2024 5:22 PM [facility] GLUCOSE 115(H) 70 - 99 mg/dL 03/20/2024 5:22 PM [facility] CALCIUM 9.4 8.8 - 10.2 mg/dL 03/20/2024 5:22 PM [facility] BUN 21 8 - 23 mg/dL 03/20/2024 5:22 PM [facility] CREATININE 0.63(L) 0.70 - 1.20 mg/dL 03/20/2024 5:22 PM [facility] BUN/CREAT RATIO 33(H) 10 - 20 5:22 PM [facility] eGFR >90 >90 mL/min/1.7 3m2 03/20/2024 5:22 PM [facility] Comment:As of 2022, eG FR is calculated by the CKD-EPI creatinine equation without race adjustment. ??eGFR can be influenced by muscle mass, exercise, and diet. ??The reported eGFR is an estimation only and is only applicable if the renal function is stable. Blood BLOOD SPECIMEN / Unknown Butterfly / Unknown 03/20/2024 4:58 PM CDT 03/20/2024 5:02 PM CDT Quan RAMSEY CHEMISTRY [facility] [address] [place] [address] * HOME MONITOR AC (03/19/2024 12:00 AM CDT) Only the most recent of7 resultswithin the time period is included. PATIENT REPORTED HOME INR 2.0 2.00 - 3.00 ALERE HOME MONITORING 03/19/2024 Franklin Squires MD OTHER [facility] [address] [place] [address] * (ABNORMAL) URINALYSIS MICROSCOPIC (03/13/2024 11:04 AM CDT) Only the most recent of2 resultswithin the time period is included. RBC 0-2 0-2, None Seen /HPF 03/13/2024 2:26 PM CDT [facility] WBC 6-10(A) 0-2, 3-5, None Seen /HPF 03/13/2024 2:26 PM CDT [facility] BACTERIA Few None Seen, Rare, Few Bacteria/ HPF 03/13/2024 2:26 PM CDT [facility] EPITHELIAL CELLS Few None Seen, Few Epi/HPF 03/13/2024 2:26 PM T [facility] WHITE CELL CLUMPS Present(A) (none) 03/13/2024 2:26 PM CDT [facility] Urine URINE SPECIMEN / Unknown Non-Blood / Unknown 03/13/2024 11:04 AM CDT 03/13/2024 1:37 PM CDT Franklin Squires MD URINE Performing Organization Address City/[facility]/ZIP Co de Phone Number [facility] [address] [place] [phone] * (ABNORMAL) URINE CULTURE (03/13/2024 11:04 AM CDT) Only the most recent of2 resultswithin the time period is included. CULTURE RESULT(A) 03/16/2024 9:13 AM CDT [facility] CULTURE >100,000 CFU/mL Pseudomonas aeruginosa 03/16/2024 9:13 AM CDT [facility] CULTURE 50,000-100,000 CFU/mL Staphylococcus aureus 03/16/2024 9:13 AM CDT [facility] CULTURE 10,000-50,000 CFU/mL Enterobacter cloacae complex 03/16/2024 9:13 AM T [facility] Comment: May develop resistance during prolonged [...] AM CDT 03/13/2024 1:37 PM CDT Narrative [facility] - 03/16/2024 9:13 AM CDT May represent colonization. No further workup pending. Franklin Squires MD MICROBIOLOGY [facility] [address] [place] [id number], * (ABNORMAL) UA W/ SEDIMENT EXAM REFLEXED PER CRITERIA (03/13/2024 11:04 AM CDT) Only the most recent of2 resultswithin the time period is included. COLOR Yellow Yellow Color 03/13/2024 2:24 PM [facility] CLARITY Clear Clear Clarity 03/13/2024 2:24 PM [facility] SPECIFIC GRAVITY,URINE <=1.005(A) 1.010, 1.015, 1.020, 1.025 03/13/2024 2:24 PM [facility] PH,URINE 6.5 6.0, 7.0, 8.0, 5.5, 6.5, 7.5, 8.5 03/13/2024 2:24 PM [facility] UROBILINOGEN, QUALITATIVE Normal Normal EU/dl 03/13/2024 2:24 PM [facility] PROTEIN, URINE Negative Negative mg/dL 03/13/2024 2:24 PM [facility] GLUCOSE, URINE Negative Negative mg/dL 03/13/2024 2:24 PM CDT [facility] KETONES,URINE Negative Negative mg/dL 03/13/2024 2:24 PM CDT [facility] BILIRUBIN,URI NE Negative Negative 03/13/2024 2:24 PM CDT [facility] OCCULT BLOOD,URINE Moderate(A) Negative 03/13/2024 2:24 PM CDT [facility] NITRITE Negative Negative 03/13/2024 2:24 PM CDT [facility] LEUKOCYTE ESTERASE Moderate(A) Negative 03/13/2024 2:24 PM CDT [facility] Urine URINE SPECIMEN / Unknown Non-Blood / Unknown 03/13/2024 11:04 AM CDT 03/13/2024 1:37 PM CDT Franklin Squires MD URINE Performing Organization Address [facility]/ZIP Co de Phone Number [facility] [address] [place] [address] * POTASSIUM (02/20/2024 2:15 PM CDT) Only the most recent of2 resultswithin the time period is included. POTASSIUM 4.3 3.5 - 5.1 mmol/L 02/20/2024 4:02 PM CDT [facility] Blood BLOOD SPECIMEN / Unknown Venipuncture / Unknown 02/20/2024 2:15 PM CDT 02/20/2024 3:06 PM CDT Franklin Squires MD CHEMISTRY Performing Organization Address City/[facility]/ZIP Co de Phone Number [facility] [address] [place] [address] * (ABNORMAL) PROTIME-INR (02/20/2024 2:15 PM CDT) Only the most recent of5 resultswithin the time period is included. INR 1.9(H) <1.3 02/20/2024 2:38 PM CDT [facility] PROTIME 21.2(H) 10.3 - 12.3 sec 02/20/2024 2:38 PM CDT [facility] Blood BLOOD SPECIMEN / Unknown Venipuncture / Unknown 02/20/2024 2:15 PM CDT 02/20/2024 2:15 PM CDT Narrative [facility] - 02/20/2024 2:38 PM CDT ?Therapeutic [...] Franklin Squires MD HEMATOLOGY Performing Organization Address City/[facility]/ZIP Co de Phone Number [facility] [address] [place] [phone] * SODIUM (02/17/2024 5:11 AM CDT) SODIUM 140 136 - 145 mmol/L 02/17/2024 6:14 AM CDT [facility] Blood BLOOD SPECIMEN / Unknown Butterfly / Unknown 02/17/2024 5:11 AM CDT 02/17/2024 5:44 AM CDT John Ludwig MD CHEMISTRY [facility] [place] ZIP [phone] [place] [address] * (ABNORMAL) CREATININE (02/17/2024 5:11 AM CDT) eGFR >90 >90 mL/min/1.7 3m2 02/17/2024 6:14 AM CDT [facility] Comment:As of 2022, eG FR is calculated by the CKD-EPI creatinine equation without race adjustment. ??eGFR can be influenced by muscle mass, exercise, and diet. ??The reported eGFR is an estimation only and is only applicable if the renal function is stable. CREATININE 0.56(L) 0.70 - 1.20 mg/dL 02/17/2024 6:14 AM CDT [facility] Blood BLOOD SPECIMEN / Unknown Butterfly / Unknown 02/17/2024 5:11 AM CDT 02/17/2024 5:44 AM CDT John Ludwig MD CHEMISTRY [facility] [place] ZIP [address] [phone] [place] [address] * MAGNESIUM (02/17/2024 5:11 AM CDT) MAGNESIUM 2.0 1.6 - 2.4 mg/dL 02/17/2024 7:44 AM CDT [facility] Blood BLOOD SPECIMEN / Unknown Butterfly / Unknown 02/17/2024 5:11 AM CDT 02/17/2024 5:44 AM CDT John Ludwig MD CHEMISTRY Performing Organization Address City/[facility]/ZIP Co de Phone Number [facility] [place] ZIP [phone] [place] [address] * (ABNORMAL) GLUCOSE METER (02/16/2024 11:41 AM CDT) Only the most recent of6 resultswithin the time period is included. GLUCOSE METER 129(H) 65 - 100 mg/dL 02/16/2024 12:02 PM CDT [facility] Blood BLOOD SPECIMEN / Unknown 02/16/2024 11:41 AM CDT 02/16/2024 12:02 PM CDT John Ludwig MD CHEMISTRY [facility] [place]NAL ZIP [address] [phone] [email or web address] [address] * LEGIONELLA AND PNEUMOCOCCAL URINE ANTIGEN (02/15/2024 10:25 AM CDT) STREP PNEUMO ANTIGEN Negative 02/15/2024 3:[address] [facility] Comment:Presumptive negative for pneumococcal pneumonia, suggesting no current or recent pneumococcal infection. Infection due to S. pneumoniae cannot be ruled out since the antigen present in the sample may be below the detection limit of the test. LEGIONELLA ANTIGEN Negative 02/15/2024 3:[address] [facility] Comment:Negative for L.pneum ophila serogroup [...] 10:30 AM CDT James Ramírez MD MICROBIOLOGY [facility] [address] [place] [address], * (ABNORMAL) WHITE BLOOD COUNT (02/15/2024 5:54 AM CDT) Pathologist [facility] WHITE BLOOD COUNT 11.7(H) 4.5 - 11.0 thou/cu mm 02/15/2024 7:16 AM CDT [facility] Blood BLOOD SPECIMEN / Unknown Venipuncture / Unknown 02/15/2024 5:54 AM CDT 02/15/2024 7:09 AM CDT James Ramírez MD HEMATOLOGY [facility] [address] [place] [address] * CT ABDOMEN PELVIS WO (02/14/2024 8:12 [...] low as reasonably achievable. Dictated by Clifton iFscher MD @ 02/14/2024 8:54:47 PM (Electronically Signed) [...] 6-15 ng/L ng/L 02/14/2024 8:12 PM CDT [facility] Blood BLOOD SPECIMEN / Unknown Venipuncture / Unknown 02/14/2024 7:49 PM CDT 02/14/2024 7:53 PM CDT Quan RAMSEY CHEMISTRY [facility] [address] [place], [place] [id number] * (ABNORMAL) TROPONIN T (HS) ACUTE W/2HR REFLEX (02/14/2024 5:35 PM CDT) TROPONIN T HS 33(H) 6-15 ng/L ng/L 02/14/2024 6:42 PM CDT [facility] Blood BLOOD SPECIMEN / Unknown Venipuncture / Unknown 02/14/2024 5:35 PM CDT 02/14/2024 5:38 PM CDT Narrative [facility] - 02/14/2024 6:42 PM CDT hs-cTnT [...] emergency department patient population. Quan RAMSEY CHEMISTRY [facility] [address] [place] [address] * XR CHEST 1 VIEW PORTABLE (02/14/2024 [...] CULTURE No Growth. 02/20/2024 5:27 AM CDT [facility] Blood BLOOD SPECIMEN / Unknown Butterfly / Unknown 02/14/2024 3:58 PM CDT 02/14/2024 4:02 PM CDT Quan RAMSEY MICROBIOLOG Y [facility] [address] [place] [address] * PROCALCITONIN (02/14/2024 3:50 PM CDT) PROCALCITONIN 0.10 ng/ml 02/14/2024 5:09 PM CDT [facility] Blood BLOOD SPECIMEN / Unknown Butterfly / Unknown 02/14/2024 3:50 PM CDT 02/14/2024 4:39 PM CDT Narrative [facility] - 02/14/2024 5:09 PM CDT Procalcitonin [...] Quan RAMSEY SEND OUTS Performing Organization Address [facility]/ZIP Co de Phone Number [facility] [address] [place] [address] * (ABNORMAL) C-REACTIVE PROTEIN (02/14/2024 3:50 PM CDT) [facility] C-REACTIVE PROTEIN 10.9(H) <0.5 mg/dL 02/14/2024 5:09 PM CDT [facility] Blood BLOOD SPECIMEN / Unknown Butterfly / Unknown 02/14/2024 3:50 PM CDT 02/14/2024 4:02 PM CDT Quan RAMSEY CHEMISTRY Performing Organization Address [facility] Co de Phone Number [facility] [address] [place] [address] * (ABNORMAL) COMP METABOLIC PANEL (02/14/2024 3:50 PM [facility]) SODIUM 134(L) 136 - 145 mmol/L 02/14/2024 4:24 PM [facility] POTASSIUM 4.3 3.5 - 5.1 mmol/L 02/14/2024 4:24 PM [facility] CHLORIDE 96(L) 98 - 107 mmol/L 02/14/2024 4:24 PM [facility] CO2,TOTAL 25 22 - 29 mmol/L 02/14/2024 4:24 PM [facility] ANION GAP 13 5 - 18 02/14/2024 4:24 PM [facility] GLUCOSE 118(H) 70 - 99 mg/dL 02/14/2024 4:24 PM [facility] CALCIUM 9.4 8.8 - 10.2 mg/dL 02/14/2024 4:24 PM [facility] BUN 15 8 - 23 mg/dL 02/14/2024 4:24 PM [facility] CREATININE 0.60(L) 0.70 - 1.20 mg/dL 02/14/2024 4:24 PM [facility] BUN/CREAT RATIO 25(H) 10 - 20 4:24 PM [facility] eGFR >90 >90 mL/min/1.7 3m2 02/14/2024 4:24 PM [facility] Comment:As of 2022, eG FR is calculated by the CKD-EPI creatinine equation without race adjustment. ??eGFR can be influenced by muscle mass, exercise, and diet. ??The reported eGFR is an estimation only and is only applicable if the renal function is stable. ALBUMIN 4.1 4.0 - 4.9 g/dL 02/14/2024 4:24 PM [facility] PROTEIN,TOTAL 7.8 6.0 - 8.0 g/dL 02/14/2024 4:24 PM [facility] BILIRUBIN,TOTAL 0.6 0.0 - 1.2 mg/dL 02/14/2024 4:24 PM CDT [facility] ALK PHOSPHATASE 117 40 - 129 IU/L 02/14/2024 4:24 PM CDT [facility] ALT (SGPT) 47 10 - 50 IU/L 02/14/2024 4:24 PM CDT [facility] AST (SGOT) 42 10 - 50 IU/L 02/14/2024 4:24 PM CDT [facility] Blood BLOOD SPECIMEN / Unknown Butterfly / Unknown 02/14/2024 3:50 PM CDT 02/14/2024 4:02 PM CDT Quan RAMSEY CHEMISTRY [facility] [address] [place] [address] from Last 3 Months Additional Health Concerns [...] urine 03/11/2018 R Buttock, 05/10/2019 buttock 01/05/2021 urine, 03/26/2024 urethra exclusions for contact precaution discontinuation (if > 12 months since positive culture): resides in acute/custodial care, receiving hemodialysis, has chronic open wounds/skin damage, has long-term percutaneous indwelling medical devices Exclusions for nares collection (if <12 months since positive culture) include all of the previous exclusions plus patients on antibiotics 7 days prior to collection 03/13/2018 03/20/2024 Advance Directives Documents on File Type Date Recorded 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
--- OUTSIDE RECORDS SUMMARY | 2024-03-30 13:26 | XMS_ITS | Encounter Summary ---
Author Name Unknown Organization [facility] Address [address], [place] [address] Care Team Providers Care Power House Control Room Operator Name Role Phone Franklin [...] on filedocumented in this encounter Care Teams Power House Control Room Operator Relationship Specialty Start Date End Date Franklin Squires MD 100 [facility] [place] [address] PCP - General Family Practice 03/08/16 documented as of this encounter
--- OUTSIDE RECORDS SUMMARY | 2024-03-30 13:26 | XMS_ITS | Encounter Summary ---
Author Name Unknown Organization [facility] Address [address] [address] Care Team Providers Care Fiber Designer Name Role Phone Franklin Squires MD [...] on filedocumented in this encounter Care Teams Fiber Designer Relationship Specialty Start Date End Date Franklin Squires MD 100 [facility] [place] [address] PCP - General Family Practice 03/08/16 documented as of this encounter
--- OUTSIDE RECORDS SUMMARY | 2024-03-30 13:26 | XMS_ITS | Encounter Summary ---
Author Name Unknown Organization [facility] Address [address] [address] Care Team Providers Care Cryogenics Repairer Name Role Phone Franklin Squires MD Primary Care Provider Encounter Details Date Type Department Care Team (Latest Contact Info) Description 12/11/2017 Correspondence Physiatry/Physical Medicine at [facility] [address] [place] [address] May Randle MD [address] [place] [address] [employer] Social History Tobacco Use [...] on filedocumented in this encounter Care Teams Cryogenics Repairer Relationship Specialty Start Date End Date Franklin Squires MD [address] [place] [address] [place] [address] PCP - General Family Practice 03/08/16 documented as of this encounter
--- OUTSIDE RECORDS SUMMARY | 2024-03-30 13:26 | XMS_ITS | Encounter Summary ---
Author Name Unknown Organization [facility] Address [address] [address] Care Team Providers Care Adjunct Physical Education Instructor Name Role Phone Franklin Squires MD Primary Care Provider Encounter Details Date Type Department Care Team ([facility] st Contact Info) Description 02/09/2016 Correspondence [facility] 401 NeuroSurgery [address] [facility] [place], [place] [id number] Jodi Aguila PA-C [address] [place] [address] PATIENT LIFT PRESCRIPTION Social History Tobacco Use [...] on filedocumented in this encounter Care Teams Adjunct Physical Education Instructor Relationship Specialty Start Date End Date Franklin Squires MD 100 [facility] [place] [address] PCP - General Family Practice 03/08/16 documented as of this encounter
--- OUTSIDE RECORDS SUMMARY | 2024-03-30 13:26 | XMS_ITS ---
Author Name Unknown Organization [facility] Address [address], [place] [address] Care Team Providers Care Inspector Welded Parts Name Role Phone Franklin Squires MD Primary Care Provider [phone] Active Problems Problem Noted Date Diagnosed Date [...] treatments are documented for this patient in [facility]. Treatments may have been administered in another system. Resolved Problems Problem Noted Date Diagnosed Date Resolved Date Gait abnormality 01/17/2012 02/09/2015 Back pain 01/17/2012 02/09/2015 Paraplegia 04/04/2011 02/09/2015 Osteoporosis 03/06/2011 02/09/2015 Urinary tract infection 12/24/200603/11
--- OUTSIDE RECORDS SUMMARY | 2024-03-30 13:26 | XMS_ITS | Clinical Summary ---
Author Name Unknown Organization [facility] Address [address] [place] [address] Care Team Providers Care Rail Filler Name Role Phone Franklin Squires MD Primary Care Provider [phone] Source Comments You are receiving this document as you are listed as the primary care provider,follow-up provider, or the patient has been referred to you for consultation.This is in compliance with the Medicare and[facility] Hospitalcaid EHR Incentive Program,which states Providers who transition their patient to another setting of careor provider of care or refers their patient to another provider of care shouldprovide summary care record for each transition of care or referral. [facility] Allergies Active Allergy Reactions Criticality Noted Date [...] 0 06/10/2014 History of anticoagulant therapy 02/17/2014 remote computer terminal operator current use of anticoagulant therapy 0 02/17/2014 [...] Comments Blood Pressure 120/63 01/18/2022 12:59 PM LEAD GAME DESIGNER Pulse 87 01/18/2022 12:59 PM LEAD GAME DESIGNER Temperature 36.3 ??C (97.4 ??F) 01/18/2022 12:59 [...] this topic Medical Devices Implanted Type Area Plan Nurse Device Identifier Shelf Expiration Date Model / Serial / Lot [id number] 4ml Tisseel Explanted:([place] ntity not on file) BIOLOGIC N/A: NECK Lynne Fenwall 09/10/2011 [id number] / [id number] / [id number] Description:posterior Cath Intrathecal Indura - [id number] Implanted:Qty: 1 on 05/09/2010 at [facility] DEVICE Right: LUMBAR SPINE [employer] 01/18/2012 8709 / N/A / [id number] Cath Intrathecal Indura - [id number] Implanted:Qty: 1 on 05/29/2010 at [facility] DEVICE [employer] 8709 / / Scr Indira Conic 7.3x80 - [id number] Implanted:Qty: 1 on 03/13/2011 at [facility] DEVICE Right: FEMUR DISTAL [employer] [place] 02.207.28 0 / NONE / NONE Plt Lcp Cndl Rt 4.5x170 6h - [id number] Implanted:Qty: 1 on 03/13/2011 at [facility] DEVICE Right: FEMUR DISTAL [employer] [place] 222.656 / NONE / NONE Description:6 hole 170mm rig ht 4.5mm lcp condylar plate Scr Didier Ss Sftp 4.5x40 - [id number] Implanted:Qty: 1 on 03/13/2011 at [facility] DEVICE Left: FEMUR DISTAL [employer] [place] 214.840 / NONE / NONE Scr Didier Ss Sftp 4.5x50 - [id number] Implanted:Qty: 1 on 03/13/2011 at [facility] DEVICE Left: FEMUR DISTAL [employer] [place] 214.850 / NONE / NONE Scr Indira Lk 5.0x80 - [id number] Implanted:Qty: 2 on 03/13/2011 at [facility] DEVICE Left: FEMUR DISTAL [employer] [place] 02.205.08 0 / NONE / NONE Scr Indira Lk 5.0x85 - [id number] Implanted:Qty: 2 on 03/13/2011 at [facility] DEVICE Left: FEMUR DISTAL [employer] [place] 02.205.08 5 / NONE / NONE Scr Lk Sftp T25 5.0x50 - [id number] Implanted:Qty: 1 on 03/13/2011 at [facility] DEVICE Left: FEMUR DISTAL [employer] [place] 212.219 / NONE / NONE Scr Lk Sftp T25 5.0x60 - [id number] Implanted:Qty: 1 on 03/13/2011 at [facility] DEVICE Left: FEMUR DISTAL [employer] [place] 212.221 / NONE / NONE Scr Indira Conic 7.3x85 - [id number] Implanted:Qty: 1 on 03/13/2011 at [facility] DEVICE Left: FEMUR DISTAL [employer] [place] 02.207.28 5 / NONE / NONE Plt Lcp Cndl Lt 4.5x170 6h - [id number] Implanted:Qty: 1 on 03/13/2011 at [facility] DEVICE Left: FEMUR DISTAL [employer] [place] 222.657 / NONE / NONE Description:6 hole 170mmleng th left 4.5mm lcp condylar plate. Scr Didier Sftp 3.5x60 F-Thrd - [id number] Implanted:Qty: 1 on 03/13/2011 at [facility] DEVICE Left: TIBIA PROXIMAL [employer] [place] 204.860 / NONE / NONE Scr Star Lk Sftp 3.5x32 - [id number] Implanted:Qty: 1 on 03/13/2011 at [facility] DEVICE Left: TIBIA PROXIMAL [employer] [place] 212.112 / NONE / NONE Scr Star Lk Sftp 3.5x55 - [id number] Implanted:Qty: 2 on 03/13/2011 at [facility] DEVICE Left: TIBIA PROXIMAL [employer] [place] 212.123 / NONE / NONE Scr Star Lk Sftp 3.5x60 - [id number] Implanted:Qty: 2 on 03/13/2011 at [facility] DEVICE Left: TIBIA PROXIMAL [employer] [place] 212.124 / NONE / NONE Plt Lcp M/Prox Lt 3.5x94 4h - [id number] Implanted:Qty: 1 on 03/13/2011 at [facility] DEVICE Left: TIBIA PROXIMAL [employer] [place] 239.955 / NONE / NONE Scr Didier Ss Sftp 4.5x36 - [id number] Implanted:Qty: 1 on 03/13/2011 at [facility] DEVICE Right: FEMUR DISTAL [employer] [place] 214.836 / NONE / NONE Scr Didier Ss Sftp 4.5x44 - [id number] Implanted:Qty: 1 on 03/13/2011 at [facility] DEVICE Right: FEMUR DISTAL [employer] [place] 214.844 / NONE / NONE Scr Indira Lk 5.0x75 - [id number] Implanted:Qty: 1 on 03/13/2011 at [facility] DEVICE Right: FEMUR DISTAL [employer] [place] 02.205.07 5 / NONE / NONE Scr Indira Lk 5.0x85 - [id number] Implanted:Qty: 2 on 03/13/2011 at [facility] DEVICE Right: FEMUR DISTAL [employer] [place] 02.205.08 5 / NONE / NONE Scr Lk Sftp T25 5.0x44 - [id number] Implanted:Qty: 1 on 03/13/2011 at [facility] DEVICE Right: FEMUR DISTAL [employer] [place] 212.216 / NONE / NONE Scr Lk Sftp T25 5.0x65 - [id number] Implanted:Qty: 1 on 03/13/2011 at [facility] DEVICE Right: FEMUR DISTAL [employer] [place] 212.222 / NONE / NONE Plt Lp T Ti Str 4h - [id number] Implanted:Qty: 3 on 07/28/2014 by Cooper Shelley MD at [facility] DEVICE Right: SKULL [employer] [place] 421.504 / / Scr Matrix Sfdr 4mm - [id number] Implanted:Qty: 6 on 07/28/2014 by Cooper Shelley MD at [facility] DEVICE Right: SKULL [employer] [place] 04.503.10 4.01 / / Lead Linear 3-4 8 Contact 50cm - [id number] Implanted:Qty: 1 on 03/08/2016 by Zelalem Cohen DO at [facility] DEVICE N/A: OTHER-SEE DESCRIPTION [place] [facility] 09/10/2017 [id number] 2500 / / [id number] Description:LUMBAR Lead Linear 3-4 8 Contact 50cm - [id number] Implanted:Qty: 1 on 03/08/2016 by Zelalem Cohen DO at [facility] DEVICE N/A: OTHER-SEE DESCRIPTION [place] [facility] 09/10/2017 [id number] 2500 / / [id number] Description:LUMBAR Lead Linear 3-4 8 Contact 50cm - [id number] Implanted:Qty: 1 on 03/08/2016 by Zelalem Cohen DO at [facility] DEVICE N/A: OTHER-SEE DESCRIPTION [place] [facility] 09/10/2017 [id number] 2500 / / [id number] Description:LUMBAR Lead Linear 3-4 8 Contact 50cm - [id number] Implanted:Qty: 1 on 03/08/2016 by Zelalem Cohen DO at [facility] DEVICE N/A: OTHER-SEE DESCRIPTION [place] [facility] 09/10/2017 [id number] 2500 / / [id number] Description:LUMBAR Lead Linear 3-4 8 Contact 50cm - [id number] Implanted:Qty: 1 on 05/24/2016 by Zelalem Cohen DO at [facility] DEVICE N/A: SPINE LUMBAR POSTERIOR [place] [facility] 01/31/2018 [id number] 2500 / [id number] / Lead Linear 3-4 8 Contact 50cm - [id number] Implanted:Qty: 1 on 05/24/2016 by Zelalem Cohen DO at [facility] DEVICE N/A: SPINE LUMBAR POSTERIOR [place] [facility] 04/26/2018 [id number] 2500 / [id number] / Lead Linear 3-4 8 Contact 50cm - [id number] Implanted:Qty: 1 on 05/24/2016 by Zelalem Cohen DO at [facility] DEVICE N/A: SPINE LUMBAR POSTERIOR [place] [facility] 04/26/2018 [id number] 2500 / [id number] / Lead Linear 3-4 8 Contact 50cm - [id number] Implanted:Qty: 1 on 05/24/2016 by Zelalem Cohen DO at [facility] DEVICE N/A: SPINE LUMBAR POSTERIOR [place] [facility] 04/26/2018 [id number] 2500 / [id number] / Generator Pulse Spectra - [id number] Implanted:Qty: 1 on 05/24/2016 by Zelalem Cohen DO at [facility] DEVICE N/A: SPINE LUMBAR POSTERIOR [place] [facility] 05/08/2018 [id number] / [id number] / [id number] [place] - [id number] Implanted:Qty: 1 on 05/24/2016 by Zelalem Cohen DO at [facility] DEVICE N/A: SPINE LUMBAR POSTERIOR [place] [facility] 05/02/2018 [id number] 60 / / [id number] [place] Ran - [id number] Implanted:Qty: 1 on 05/24/2016 by Zelalem Cohen DO at [facility] DEVICE N/A: SPINE LUMBAR POSTERIOR [place] [facility] 02/28/2018 [id number] 60 / / [id number] Procedures Procedure Name Priority Date/Time Associated Diagnosis Comments CREATININE/GFR, WB POC Routine 01/06/2016 12:04 PM LEAD GAME DESIGNER Back pain, 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 HGB A1C Routine 07/29/2014 3:19 AM CDT from Last 3 Months or Most Recently Relevant to Health Maintenance Results * CREATININE/GFR, WB POC (01/06/2016 12:04 PM LEAD GAME DESIGNER) Creat Whole Blood 0.9 0.66 - 1.25 mg/dl [facility] GFR, Estimated >60 >60 ml/min/1.7 3m2 [facility] GFR, Est., If Black >60 >60 ml/min/1.7 3m2 [facility] 01/06/2016 12:0 4 PM LEAD GAME DESIGNER 01/06/2016 12:21 PM LEAD GAME DESIGNER Trae Blair MD LAB_[facility] [phone] * (ABNORMAL) HGB A1C (07/29/2014 3:19 AM CDT) Hgb A1c 6.4(H) 4.3 - 6.1 % [facility] Comment: The usual A1C goal for people with diabetes, age 18-75, is <8.0%. Physicians may recommend a higher or lower goal for specific individuals. 07/29/2014 3:19 AM CDT 07/29/2014 3:22 AM CDT [facility] - 07/29/2014 12:53 PM CDT Performed at [facility], [address] ??[address] [place] Wei PA-C LAB_[address] [address] from Last 3 Months or Most Recently [...] 5:44 PM 07/28/2014 6:50 PM Care Teams Rail Filler Relationship Specialty Start Date End Date Franklin Squires MD [address] [facility] [address] [place] [address] PCP - General Family Practice 03/08/16
--- OUTSIDE RECORDS SUMMARY | 2024-03-30 13:27 | XMS_ITS | Encounter Summary ---
Author Name Unknown Organization [facility] Address [address], [place] [address] Care Team Providers Care Therapeutic Radiologist Name Role Phone Franklin Squires MD Primary Care Provider Encounter Details Date Type Department Care Team (Late st Contact Info) Description 07/28/2014 Outside Hospital External to External, Provider No address [address] ER VISIT/TRANSFER Social History Tobacco Use [...] on filedocumented in this encounter Care Teams Therapeutic Radiologist Relationship Specialty Start Date End Date Franklin Squires MD [address] [place] [address] PCP - General Family Practice 03/08/16 documented as of this encounter
--- OUTSIDE RECORDS SUMMARY | 2024-03-30 13:27 | XMS_ITS | Encounter Summary ---
Author Name Unknown Organization [facility] Address [address], [place] [address] Care Team Providers Care Outside Plant Engineer Name Role Phone Franklin Squires MD Primary Care Provider Encounter Details Date Type Department Care Team (Late st Contact Info) Description 03/11/2014 Correspondence [facility] 401 Interventional Pain Management [address] [place] [address] Zelalem Cohen, DO [address] [place] [address] EMPI Social History Tobacco Use Types Packs/Day [...] on filedocumented in this encounter Care Teams Outside Plant Engineer Relationship Specialty Start Date End Date Franklin Squires MD 100 [facility] [place] [address] PCP - General Family Practice 03/08/16 documented as of this encounter
--- OUTSIDE RECORDS SUMMARY | 2024-03-30 13:27 | XMS_ITS | Encounter Summary ---
Author Name Unknown Organization [facility] Address [address], [place] [address] Care Team Providers Care Associate Medical Director Name Role Phone Franklin Squires MD Primary Care Provider Encounter Details Date Type Department Care Team (Late st Contact Info) Description 12/14/2014 [facility] 401 Physical Medicine 401 [facility] [place] [address] May Randle MD [address] [place] [address] DETAILED PRODUCT DESCRIPTION Social History Tobacco Use [...] filedocumented in this encounter Care Teams Associate Medical Director Relationship Specialty Start Date End Date Franklin Squires MD 100 [facility] [place] [address] PCP - General Family Practice 03/08/16 documented as of this encounter
--- OUTSIDE RECORDS SUMMARY | 2024-03-30 13:27 | XMS_ITS | Encounter Summary ---
Author Name Unknown Organization [facility] Address [address], [place] [address] Care Team Providers Care Sql Server Dba Developer Name Role Phone Franklin Squires MD Primary Care Provider [phone] Encounter Details Date Type Department Care Team [...] on filedocumented in this encounter Care Teams Sql Server Dba Developer Relationship Specialty Start Date End Date Franklin Squires MD 100 [facility] [place] [address] PCP - General Family Practice 03/08/16 documented as of this encounter
--- OUTSIDE RECORDS SUMMARY | 2024-03-30 13:27 | XMS_ITS | Encounter Summary ---
Author Name Unknown Organization [facility] Address [address] [place] [address] Care Team Providers Care Greenhouse Laborer Name Role Phone Franklin Squires MD Primary Care Provider [phone] Encounter Details Date Type Department Care Team (Late st Contact Info) Description 06/07/2015 Correspondence [facility] Radiology [address] [place] [address] Radiology, Provider MRI SAFETY SHEET AND COMPATIBILITY [...] on filedocumented in this encounter Care Teams Greenhouse Laborer Relationship Specialty Start Date End Date Franklin Squires MD [address] [place] [address] [place] [address] PCP - General Family Practice 03/08/16 documented as of this encounter
--- OUTSIDE RECORDS SUMMARY | 2024-03-30 13:27 | XMS_ITS | Encounter Summary ---
Author Name Unknown Organization [facility] Address [address], [place] [address] Care Team Providers Care Facilities Maintenance Assistant Name Role Phone Franklin Squires MD Primary Care Provider Encounter Details Date Type Department Care Team (Late st Contact Info) Description 08/22/2014 Outside Hospital External to [facility] HOSP-D/C SUMMARY Social History Tobacco Use [...] on filedocumented in this encounter Care Teams Facilities Maintenance Assistant Relationship Specialty Start Date End Date Franklin qSuires MD 100 [facility] [place] [address] PCP - General Family Practice 03/08/16 documented as of this encounter
--- OUTSIDE RECORDS SUMMARY | 2024-03-30 13:27 | XMS_ITS | Encounter Summary ---
Author Name Unknown Organization [facility] Address [address] [place] [address] Care Team Providers Care Global Position System Technician Name Role Phone Franklin Squires MD Primary Care Provider Encounter Details Date Type Department Care Team (Late st Contact Info) Description 01/06/2016 Correspondence [facility] Radiology [address] [place] [address] Radiology, Provider MRI SAFETY SHEET AND COMPATIBILITY [...] filedocumented in this encounter Care Teams Global Position System Technician Relationship Specialty Start Date End Date Franklin Squires MD [address] [place] [address] [place] [address] PCP - General Family Practice 03/08/16 documented as of this encounter
--- OUTSIDE RECORDS SUMMARY | 2024-03-30 13:27 | XMS_ITS | Encounter Summary ---
Author Name Unknown Organization [facility] Address [address] [address] Care Team Providers Care Product/Device Technologist Name Role Phone Franklin Squires MD Primary Care Provider Encounter Details Date Type Department Care Team ([facility] st Contact Info) Description 07/08/2015 Correspondence [facility] Physical Therapy [address] [place] [address] Trudi Raymundo, PT [address] [place] [address] ADDENDUM FOR LETTER OF MEDICAL NECESSITY Social [...] on filedocumented in this encounter Care Teams Product/Device Technologist Relationship Specialty Start Date End Date Franklin Squires MD 100 [facility] [address] PCP - General Family Practice 03/08/16 documented as of this encounter
--- OUTSIDE RECORDS SUMMARY | 2024-03-30 13:27 | XMS_ITS | Encounter Summary ---
Author Name Unknown Organization [facility] Address [address], [place] [address] Care Team Providers Care Incident Response Engineer Name Role Phone Franklin Squires MD Primary Care Provider Encounter Details Date Type Department Care Team (Late st Contact Info) Description 04/20/[address] [address] Radiology, Provider MRI SAFETY SHEET AND COMPATIBILITY [...] on filedocumented in this encounter Care Teams Incident Response Engineer Relationship Specialty Start Date End Date Franklin Squires MD 100 [facility] [place] [address] PCP - General Family Practice 03/08/16 documented as of this encounter
--- OUTSIDE RECORDS SUMMARY | 2024-03-30 13:27 | XMS_ITS | Encounter Summary ---
Author Name Unknown Organization [facility] Address [address] [address] Care Team Providers Care Surgery Assistant Name Role Phone Franklin Squires MD [...] on filedocumented in this encounter Care Teams Surgery Assistant Relationship Specialty Start Date End Date Franklin Squires MD 100 [facility] [place] [address] PCP - General Family Practice 03/08/16 documented as of this encounter
--- OUTSIDE RECORDS SUMMARY | 2024-03-30 13:27 | XMS_ITS | Encounter Summary ---
Author Name Unknown Organization [facility] Address [address] [address] Care Team Providers Care Industrial Robotics Mechanic Name Role Phone Franklin Squires MD Primary Care Provider Encounter Details Date Type Department Care Team (Late st Contact Info) Description 04/24/2012 Correspondence [facility] Radiology [address] [place] [address] Radiology, Provider MRI SAFETY SHEET AND COMPATIBILITY [...] filedocumented in this encounter Care Teams Industrial Robotics Mechanic Relationship Specialty Start Date End Date Franklin Squires MD 100 [facility] [place] [address] PCP - General Family Practice 03/08/16 documented as of this encounter
--- OUTSIDE RECORDS SUMMARY | 2024-03-30 13:27 | XMS_ITS | Encounter Summary ---
Author Name Unknown Organization [facility] Address [address] [address] Care Team Providers Care Crop Ranch Hand Name Role Phone Franklin Squires MD Primary Care Provider Encounter Details Date Type Department Care Team (Late st Contact Info) Description 11/23/2015 Correspondence External to External, [place] [address] LETTER [facility] Social History Tobacco Use Types [...] on filedocumented in this encounter Care Teams Crop Ranch Hand Relationship Specialty Start Date End Date Franklin Squires MD 100 [facility] [place] [address] PCP - General Family Practice 03/08/16 documented as of this encounter
--- OUTSIDE RECORDS SUMMARY | 2024-03-30 13:27 | XMS_ITS | Encounter Summary ---
Author Name Unknown Organization [facility] Address [address] [address] Care Team Providers Care Technology Development Intern Name Role Phone Franklin Squires MD Primary Care Provider Encounter Details Date Type Department Care Team (Late st Contact Info) Description 08/20/2014 Outside Hospital External to [facility] H/P Social History Tobacco Use [...] Squires MD 100 [facility] [place] [address] PCP - General Family Practice 03/08/16 documented as of this encounter
--- OUTSIDE RECORDS SUMMARY | 2024-03-30 13:27 | XMS_ITS | Encounter Summary ---
Author Name Unknown Organization [facility] Address [address] [address] Care Team Providers Care Manufacturing Production Manager Name Role Phone Franklin Squires MD Primary Care Provider [phone] Encounter Details Date Type Department Care Team ([facility] st Contact Info) Description 11/10/2014 Correspondence [facility] Physical Therapy [address] [place] [address] Trudi Raymundo, PT [address] [place] [address] LETTER OF MEDICAL NECESSITY Social History Tobacco [...] on filedocumented in this encounter Care Teams Manufacturing Production Manager Relationship Specialty Start Date End Date Franklin Squires MD [address] [facility] [address] PCP - General Family Practice 03/08/16 documented as of this encounter
--- OUTSIDE RECORDS SUMMARY | 2024-03-30 13:27 | XMS_ITS | Encounter Summary ---
Author Name Unknown Organization [facility] Address [address] [address] Care Team Providers Care Applied Research Director Name Role Phone Franklin Squires MD Primary Care Provider Encounter Details Date Type Department Care Team (Late st Contact Info) Description 06/11/2014 Correspondence [facility] 401 Physical Medicine 401 [facility] [place] [address] May Randle MD [address] [place] [address] [facility] Social History Tobacco Use Types [...] on filedocumented in this encounter Care Teams Applied Research Director Relationship Specialty Start Date End Date Franklin Squires MD 100 [facility] [address] PCP - General Family Practice 03/08/16 documented as of this encounter
--- OUTSIDE RECORDS SUMMARY | 2024-03-30 13:27 | XMS_ITS | Encounter Summary ---
Author Name Unknown Organization [facility] Address [address], [place] [address] Care Team Providers Care Pumper Gauger Apprentice Name Role Phone Franklin Squires MD Primary Care Provider Encounter Details Date Type Department Care Team (Late st Contact Info) Description 02/05/2014 Correspondence [facility] Physical Therapy [address] [place] [address] Trudi Raymundo, PT [address] [place] [address] LETTER OF MEDICAL NECESSITY FOR A WHEELCHAIR [...] on filedocumented in this encounter Care Teams Pumper Gauger Apprentice Relationship Specialty Start Date End Date Franklin Squires MD 100 [facility] [address] PCP - General Family Practice 03/08/16 documented as of this encounter
--- OUTSIDE RECORDS SUMMARY | 2024-03-30 13:27 | XMS_ITS | Encounter Summary ---
Author Name Unknown Organization [facility] Address [address], [place] [address] Care Team Providers Care Branch Specialist Name Role Phone Franklin Squires MD Primary Care Provider Encounter Details Date Type Department Care Team (Late st Contact Info) Description 12/16/2013 Correspondence [facility] Radiology [address] [place] [address] Radiology, Provider MRI SAFETY SHEET AND COMPATIBILITY [...] Radiology, Provider - 12/16/2013 12:00 AM CST [facility] documented in this encounter Plan of Treatment Not on file documented as of this encounter Visit Diagnoses Not on filedocumented in this encounter Care Teams Branch Specialist Relationship Specialty Start Date End Date Franklin Squires MD 100 [facility] [place] [address] PCP - General Family Practice 03/08/16 documented as of this encounter
--- OUTSIDE RECORDS SUMMARY | 2024-03-30 13:27 | XMS_ITS | Encounter Summary ---
Author Name Unknown Organization [facility] Address [address] [address] Care Team Providers Care Poultry Scientist Name Role Phone Franklin Squires MD Primary Care Provider [phone] Encounter Details Date Type Department Care Team (Late st Contact Info) Description 09/17/2013 Correspondence External to External, [place] [address] EMPOWERMENT RULES Social History Tobacco Use Types [...] External, Provider - 09/17/2013 12:00 AM CST ON WEIGHER OPERATOR documented in this encounter Plan of Treatment Not on file documented as of this encounter Visit Diagnoses Not on filedocumented in this encounter Care Teams Poultry Scientist Relationship Specialty Start Date End Date Franklin Squires MD 100 [facility] [address] PCP - General Family Practice 03/08/16 documented as of this encounter
--- OUTSIDE RECORDS SUMMARY | 2024-03-30 13:27 | XMS_ITS | Encounter Summary ---
Author Name Unknown Organization [facility] Address [address], [place] [address] Care Team Providers Care Principal Developer Name Role Phone Franklin Squires MD Primary Care Provider [phone] Encounter Details Date Type Department Care Team (Late st Contact Info) Description 08/20/2014 Outside Hospital External to [facility] HOSP-H/P Social History Tobacco Use Types [...] on filedocumented in this encounter Care Teams Principal Developer Relationship Specialty Start Date End Date Franklin Squires MD 100 [facility] [address] PCP - General Family Practice 03/08/16 documented as of this encounter
--- OUTSIDE RECORDS SUMMARY | 2024-03-30 13:27 | XMS_ITS | Encounter Summary ---
Author Name Unknown Organization [facility] Address [address] [place] [address] Care Team Providers Care Training And Development Project Leader Name Role Phone Franklin Squires MD Primary Care Provider [phone] Encounter Details Date Type Department Care Team (Late st Contact Info) Description 05/04/2014 Correspondence [facility] 401 Physical Medicine 401 [facility] [place] [address] May Randle MD [address] [place] [address] LETTER OF MEDICAL NECESSITY FOR A WHEELCHAIR [...] on filedocumented in this encounter Care Teams Training And Development Project Leader Relationship Specialty Start Date End Date Franklin Squires MD 100 [facility] [place] [address] PCP - General Family Practice 03/08/16 documented as of this encounter
--- OUTSIDE RECORDS SUMMARY | 2024-03-30 13:27 | XMS_ITS | Encounter Summary ---
Author Name Unknown Organization [facility] Address [address], [place] [address] Care Team Providers Care Case Consultant Name Role Phone Franklin Squires MD Primary Care Provider Encounter Details Date Type Department Care Team (Latest Contact Info) Description 06/04/2014 Correspondence [facility] 401 Interventional Pain Management 401 [facility] [place] [address] Zelalem Cohen, DO [address] [place] [address] MEDICAID PT INFORMATION EMPI RECOVERY Social History [...] on filedocumented in this encounter Care Teams Case Consultant Relationship Specialty Start Date End Date Franklin Squires MD 100 [facility] [place] [address] PCP - General Family Practice 03/08/16 documented as of this encounter
--- OUTSIDE RECORDS SUMMARY | 2024-03-30 13:27 | XMS_ITS | Encounter Summary ---
Author Name Unknown Organization [facility] Address [address] [address] Care Team Providers Care Contract Clerk Name Role Phone Franklin Squires MD Primary Care Provider Encounter Details Date Type Department Care Team (Late st Contact Info) Description 11/13/2012 Correspondence [facility] Radiology [address] [place] [address] Radiology, Provider MRI SAFETY SHEET AND COMPATIBILITY [...] RADIOLOGY, PROVIDER - 11/13/2012 12:00 AM CST UNTING BOOKKEEPER documented in this encounter Plan of Treatment Not on file documented as of this encounter Visit Diagnoses Not on filedocumented in this encounter Care Teams Contract Clerk Relationship Specialty Start Date End Date Franklin Squires MD 100 [facility] [place] [address] PCP - General Family Practice 03/08/16 documented as of this encounter
--- OUTSIDE RECORDS SUMMARY | 2024-03-30 13:27 | XMS_ITS | Encounter Summary ---
Author Name Unknown Organization [facility] Address [address] [address] Care Team Providers Care Postal Mail Carrier Name Role Phone Franklin Squires MD Primary Care Provider Encounter Details Date Type Department Care Team (Late st Contact Info) Description 12/16/2014 Correspondence External to External, Provider No address [place] [phone] MEDICARE PLAN OF CARE RECERT Social History [...] on filedocumented in this encounter Care Teams Postal Mail Carrier Relationship Specialty Start Date End Date Franklin Squires MD 100 [facility] [place] [address] PCP - General Family Practice 03/08/16 documented as of this encounter
--- OUTSIDE RECORDS SUMMARY | 2024-03-30 13:27 | XMS_ITS | Encounter Summary ---
Author Name Unknown Organization [facility] Address [address] [address] Care Team Providers Care Diagnostic Radiologist Name Role Phone Franklin Squires MD Primary Care Provider [phone] Encounter Details Date Type Department Care Team ([facility] st Contact Info) Description 10/26/2013 Correspondence [facility] Physical Therapy [address] [place] [address] Trudi Raymundo, PT [address] [place] [address] LETTER OF MEDICAL NECESSITY Social History Tobacco [...] Raymundo, PT - 10/26/2013 12:00 AM CST ADVANCED documented in this encounter Plan of Treatment Not on file documented as of this encounter Visit Diagnoses Not on filedocumented in this encounter Care Teams Diagnostic Radiologist Relationship Specialty Start Date End Date Franklin Squires MD 100 [facility] [place] [address] PCP - General Family Practice 03/08/16 documented as of this encounter
--- OUTSIDE RECORDS SUMMARY | 2024-03-30 13:27 | XMS_ITS | Encounter Summary ---
Author Name Unknown Organization [facility] Address [address] [place] [address] Care Team Providers Care Spanish Tutor Name Role Phone Franklin Squires MD Primary Care Provider Encounter Details Date Type Department Care Team (Late st Contact Info) Description 01/08/2013 Scanned History External to Transferred Record, Provider [facility] Social History Tobacco Use Types Packs/Day Years [...] on filedocumented in this encounter Care Teams Spanish Tutor Relationship Specialty Start Date End Date Franklin Squires MD 100 [facility] [place] [address] PCP - General Family Practice 03/08/16 documented as of this encounter
--- OUTSIDE RECORDS SUMMARY | 2024-03-30 13:27 | XMS_ITS | Encounter Summary ---
Author Name Unknown Organization [facility] Address [address] [place] [address] Care Team Providers Care Supervisor Painting Shipyard Name Role Phone Franklin Squires MD Primary Care Provider [phone] Encounter Details Date Type Department Care Team (Late st Contact Info) Description 09/07/2014 Correspondence [facility] Radiology [address] [place] [address] Radiology, Provider MRI SAFETY SHEET AND COMPATIBILITY [...] filedocumented in this encounter Care Teams Supervisor Painting Shipyard Relationship Specialty Start Date End Date Franklin Squires MD [address] [place] [address] [place] [address] PCP - General Family Practice 03/08/16 documented as of this encounter
--- OUTSIDE RECORDS SUMMARY | 2024-03-30 13:27 | XMS_ITS | Encounter Summary ---
Author Name Unknown Organization [facility] Address [address] [place] [address] Care Team Providers Care Timers Inspector Name Role Phone Franklin Squires MD Primary Care Provider [phone] Encounter Details Date Type Department Care Team (Late st Contact Info) Description 07/23/2013 Correspondence [facility] 401 Interventional Pain Management 401 [facility] [place] [address] Zelalem Cohen DO [address] [place] [address] [employer] Social History Tobacco Use Types [...] Cohen MD - 07/23/2013 12:00 AM CDT TROGRAPHIC ANALYST documented in this encounter Plan of Treatment Not on file documented as of this encounter Visit Diagnoses Not on filedocumented in this encounter Care Teams Timers Inspector Relationship Specialty Start Date End Date Franklin Squires MD 100 [facility] [place] [address] PCP - General Family Practice 03/08/16 documented as of this encounter
== END 2024-03-30 13:24 | disposition home or self-care (01) ==
LOC: WOUND 13:23
PROVIDERS: PCP Family Medicine; Visit Provider Nurse Practitioner Family
DX: M86.18 Other acute osteomyelitis, other site (principal); L89.324 Pressure ulcer of left buttock, stage 4; G82.50 Quadriplegia, unspecified; Z99.3 Dependence on wheelchair
CPT/HCPCS: 11042; 97605

== ENCOUNTER 2024-04-07 10:51 | Outpatient (CLI) | payer MEDICARE, OTHER, SELFPAY | END 2024-04-07 10:52 | disposition home or self-care (01) | LOC: WOUND 10:51 | PROVIDERS: PCP Family Medicine; Visit Provider Family Medicine | DX: M86.18 Other acute osteomyelitis, other site (principal); E11.622 Type 2 diabetes mellitus with other skin ulcer; L89.324 Pressure ulcer of left buttock, stage 4; G82.50 Quadriplegia, unspecified; Z99.3 Dependence on wheelchair | CPT/HCPCS: 11042; 97605 ==

== ENCOUNTER 2024-04-13 12:36 | Outpatient (CLI) | payer MEDICARE, OTHER, SELFPAY ==
--- OUTSIDE RECORDS SUMMARY | 2024-04-13 12:38 | XMS_ITS | Continuity of Care Document ---
Author Name [facility] Organization [facility] Care Team Providers Care Rn Cardiovascular Name Role Phone [facility] Unavailable Unavailable Problems Combined list of problems from 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 It does not include entries that were removed or entered in error. Problem Status Onset Date Problem Type Date of Resolution Comments Source Abnormal liver function Active Condition [facility] Anemia ([facility] 503425626) Active Condition [facility] Anxiety ([facility] 36847790) Active Condition [facility] Autonomic dysreflexia Active Condition [facility] Chronic Pain Syndrome ([facility] 393609886) Active Condition [facility] Colostomy present Active Condition [facility] Constipation ([facility] 48519785) Active Condition [facility] Continuous opioid dependence Active Condition [facility] COPD - Chronic Obstructive Pulmonary Disease ([facility] 18198540) Active Condition [facility] Dementia Active Condition [facility] Depression ([facility] 54292651) Active Condition [facility] Diabetes Mellitus Type 2 ([facility] 13151389) Active Condition [facility] Ependymoma of spinal cord Active Condition [facility] Hearing Loss ([facility] 56168856) Active Condition [facility] History of Deep Vein Thrombosis ([facility] 126001850) Active Condition [facility] History of pressure injury Active Condition [facility] HTN - Hypertension ([facility] 56133693) Active Condition [facility] Hyperlipidemia ([facility] 55201024) Active Condition [facility] Hyponatremia Active Condition [facility] Long-term current use of anticoagulant Active Condition [facility] Neurogenic Bladder ([facility] 367281130) Active Condition [facility] Neurogenic bowel Active Condition [facility] Osteoporosis ([facility] 86778827) Active Condition [facility] Paraplegia Active Condition [facility] Spasticity Active Condition [facility] Suprapubic urinary catheter in situ Active Condition [facility] Supraventricular tachycardia Active Condition [facility] Tinnitus ([facility] 43030004) Active Condition [facility] Vitamin D Deficiency ([facility] 7054108) Active Condition [facility] Diagnosis: ICD-10-CM Z73.6 Limitation of activities due to disability Active Diagnosis [facility] Diagnosis: ICD-10-CM G82.20 Paraplegia, unspecified Active Diagnosis [facility] Diagnosis: ICD-10-CM Z43.3 Encounter for attention to colostomy Active Diagnosis [facility] Diagnosis: ICD-10-CM Z71.3 Dietary counseling and surveillance Active Diagnosis [facility] Diagnosis: ICD-10-CM F32.A Depression, unspecified Active Diagnosis [facility] Medications Combined list of outpatient medications from Department of Defense and [facility] Affairs facilities.Medications provided include 1) outpatient medications from the last 15 months, and 2) patient-reported medications. Medication Details Route Status Patient Instructions Prescription Expires Prescription Number Last Dispense Date Ordering Provider Order Date Order Qty Source ACETAMINOPH EN 500MG TAB TAKE TWO TABLETS BY MOUTH THREE TIMES A DAY NEEDED ORAL ACTIVE Jagdish BARRETT N 2022 [facility] AMLODIPINE BESYLATE (AMLODIPINE BESYLATE), 5 MG, TABLET, ORAL, [employer] 1000 ea. BOTTLE Active [id number] 4 2023 90 Pharmac y Data Transac tion Service Facilit y AMLODIPINE BESYLATE (amlodipine besylate), 5 MG, TABLET, ORAL, [employer], 1000 ea. BOTTLE Active [id number] 4 2023 90 Pharmac y Data Transac tion Service Facilit y AMLODIPINE BESYLATE 2.5MG TAB TAKE TWO TABLETS BY MOUTH EVERY MORNING ORAL ACTIVE Jagdish BARRETT N 2022 [facility] AMOX TR-POTASSIU M CLAVULANATE (AMOXICILLI N/POTASSIUM CLAV), 875-125 MG, TABLET, ORAL, [employer] [facility], 20 ea. BOTTLE Active [id number] 3 2022 14 Pharmac y Data Transac tion Service Facilit y AMOXICILLIN -CLAVULANAT E POTASS (amoxicilli n/potassium clavulanate ), 875-125 MG, TABLET, ORAL, [facility] [place],, 20 ea. BOTTLE Active [id number] 2023 56 Pharmac y Data Transac tion Service Facilit y ARIPIPRAZOL E (aripiprazo le), 2 MG, TABLET, ORAL, [employer], 500 ea. BOTTLE Active [id number] 2023 180 Pharmac y Data Transac tion Service Facilit y ARIPIPRAZOL E (aripiprazo le), 2 MG, TABLET, ORAL, [employer], 500 ea. BOTTLE Active [id number] 2023 180 Pharmac y Data Transac tion Service Facilit y ARIPIPRAZOL E TAB TAKE 2MG BY MOUTH TWICE A DAY ORAL ACTIVE MARGIEJey Clemente 2021 [facility] ATIVAN (LORAZEPAM) , 0.5 MG, TABLET, ORAL, [employer], 100 ea. BOTTLE Active [id number] 2023 120 Pharmac y Data Transac tion Service Facilit y ATORVASTATI N CA 80MG TAB TAKE ONE-HALF TABLET BY MOUTH EVERY DAY ORAL ACTIVE MARGIEJey SB Clemente 2021 [facility] ATORVASTATI N CALCIUM (atorvastat in calcium), 40 MG, TABLET, ORAL, [employer]ARMA I, 1000 ea. BOTTLE Active [id number] 2023 90 Pharmac y Data Transac tion Service Facilit y ATORVASTATI N CALCIUM (atorvastat in calcium), 40 MG, TABLET, ORAL, [employer] I, 1000 ea. BOTTLE Active [id number] 2023 90 Pharmac y Data Transac tion Service Facilit y BACLOFEN (baclofen), 20 MG, TABLET, ORAL, [employer] [facility] 1000 ea. BOTTLE Active [id number] 2023 540 Pharmac y Data Transac tion Service Facilit y BACLOFEN (baclofen), 20 MG, TABLET, ORAL, [facility] [facility] 1000 ea. BOTTLE Active [id number] 2023 540 Pharmac y Data Transac tion Service Facilit y BACLOFEN 20MG TAB TAKE TWO TABLETS BY MOUTH THREE TIMES A DAY ORAL ACTIVE Jagdish BARRETT 2022 [facility] BUPROPION HCL 150MG 12HR TAB,SA TAKE ONE TABLET BY MOUTH TWICE A DAY ORAL ACTIVE Jey HANSON 2021 [facility] BUPROPION HCL SR (bupropion HCl), 150 MG, TAB SR 12H, ORAL, [employer] [facility], 60 ea. BOTTLE Active [id number] 2023 180 Pharmac y Data Transac tion Service Facilit y CEPHALEXIN 250MG CAP TAKE 1 CAPSULE BY MOUTH EVERY DAY ORAL ACTIVE MARGIEJey Clemente 2021 [facility] CHOLECALCIF GILSON 25MCG (1,000UNIT) TAB TAKE ONE TABLET BY MOUTH EVERY DAY ORAL ACTIVE Jey PRADHAN SB Clemente 2021 [facility] CIPROFLOXAC IN HCL (CIPROFLOXA SHAR HCL), 750 MG, TABLET, ORAL, [employer], 50 ea. BOTTLE Active [id number] 2023 70 Pharmac y Data Transac tion Service Facilit y DONEPEZIL HCL (DONEPEZIL HCL), 5 MG, TABLET, ORAL, [employer] 1000 ea. BOTTLE Cancele d [id number] : 2023 0 Pharmac y Data Transac tion Service Facilit y DONEPEZIL HCL (DONEPEZIL HCL), 5 MG, TABLET, ORAL, [employer] 1000 ea. BOTTLE Active [id number] 2023 90 Pharmac y Data Transac tion Service Facilit y DONEPEZIL HCL 10MG TAB TAKE ONE-HALF TABLET BY MOUTH EVERY DAY ORAL ACTIVE MARGIEJey SB Clemente 2021 [facility] DULOXETINE HCL (duloxetine HCl), 60 MG, CAPSULE DR, ORAL, [employer] 1000 ea. BOTTLE Active [id number] 2023 180 Pharmac y Data Transac tion Service Facilit y DULOXETINE HCL 30MG CAP,EC TAKE 2 CAPSULES BY MOUTH TWICE A DAY ORAL ACTIVE Jey HANSON 2021 [facility] FAMOTIDINE (famotidine ), 20 MG, TABLET, ORAL, [employer] 1000 ea. BOTTLE Active [id number] 2023 180 Pharmac y Data Transac tion Service Facilit y FAMOTIDINE 20MG TAB TAKE ONE TABLET BY MOUTH TWICE A DAY ORAL ACTIVE Jey HANSON 2021 [facility] FUROSEMIDE (furosemide ), 40 MG, TABLET, ORAL, [employer] [facility], 1000 ea. BOTTLE Active [id number] 2023 180 Pharmac y Data Transac tion Service Facilit y FUROSEMIDE (furosemide ), 40 MG, TABLET, ORAL, [employer] [facility], 1000 ea. BOTTLE Active [id number] 2023 180 Pharmac y Data Transac tion Service Facilit y FUROSEMIDE 40MG TAB TAKE ONE TABLET BY MOUTH TWICE A DAY ORAL ACTIVE Jey HANSON 2021 [facility] GABAPENTIN (gabapentin ), 400 MG, CAPSULE, ORAL, [employer] 500 ea. BOTTLE Active [id number] 2023 270 Pharmac y Data Transac tion Service Facilit y GABAPENTIN 400MG CAP TAKE 1 CAPSULE BY MOUTH THREE TIMES A DAY ORAL ACTIVE Jey HANSON 2021 [facility] LORAZEPAM (lorazepam) , 0.5 MG, TABLET, ORAL, [employer], 1000 ea. BOTTLE Active [id number] 2023 120 Pharmac y Data Transac tion Service Facilit y LORAZEPAM (lorazepam) , 0.5 MG, TABLET, ORAL, [employer], 1000 ea. BOTTLE Active [id number] 2023 120 Pharmac y Data Transac tion Service Facilit y LORAZEPAM (lorazepam) , 0.5 MG, TABLET, ORAL, [employer], 1000 ea. BOTTLE Active [id number] 2023 120 Pharmac y Data Transac tion Service Facilit y LORAZEPAM (lorazepam) , 0.5 MG, TABLET, ORAL, [employer], 500 ea. BOTTLE Active [id number] 2023 120 Pharmac y Data Transac tion Service Facilit y LORAZEPAM 0.5MG TAB TAKE ONE TABLET BY MOUTH THREE TIMES A DAY AND TAKE TWO TABLETS BY MOUTH AT BEDTIME ORAL ACTIVE Jagdish BARRETT N 2022 [facility] MILK OF MAGNESIA TAKE 30ML BY MOUTH EVERY DAY NEEDED ORAL ACTIVE Jey HANSON M 2021 [facility] MULTIVITAMI NS CAP/TAB TAKE ONE TABLET BY MOUTH EVERY DAY ORAL ACTIVE Jey HANSON M 2021 [facility] NALOXONE HCL 4MG/SPRAY SOLN,SPRAY, NASAL SPRAY 1 DOSE IN ONE NOSTRIL DIRECTED PRN NASAL ACTIVE Jagdish BARRETT 2022 [facility] OXYCODONE HCL (OXYCODONE HCL), 10 MG, TABLET, ORAL, [employer] 100 ea. BOTTLE Active [id number] 4 2023 120 Pharmac y Data Transac tion Service Facilit y OXYCODONE HCL (OXYCODONE HCL), 10 MG, TABLET, ORAL, [employer] 100 ea. BOTTLE Active [id number] 2023 120 Pharmac y Data Transac tion Service Facilit y OXYCODONE HCL (OXYCODONE HCL), 10 MG, TABLET, ORAL, [employer] 100 ea. BOTTLE Active [id number] 2023 120 Pharmac y Data Transac tion Service Facilit y OXYCODONE HCL (OXYCODONE HCL), 10 MG, TABLET, ORAL, [employer] 100 ea. BOTTLE Active [id number] 2023 120 Pharmac y Data Transac tion Service Facilit y OXYCODONE HCL (OXYCODONE HCL), 10 MG, TABLET, ORAL, [employer] 100 ea. BOTTLE Active [id number] 2023 120 Pharmac y Data Transac tion Service Facilit y OXYCODONE HCL (OXYCODONE HCL), 10 MG, TABLET, ORAL, [employer] 100 ea. BOTTLE Active [id number] 2022 120 Pharmac y Data Transac tion Service Facilit y OXYCODONE HCL 5MG TAB TAKE TWO TABLETS BY MOUTH FOUR TIMES A DAY ORAL ACTIVE Jagdish BARRETT 2022 [facility] POTASSIUM CHLORIDE (potassium chloride), 10 MEQ, TAB ER PRT, ORAL, [employer], 100 ea. BOTTLE Active [id number] 2023 180 Pharmac y Data Transac tion Service Facilit y POTASSIUM CHLORIDE (potassium chloride), 20 MEQ, TAB ER PRT, ORAL, [employer], 100 ea. BOTTLE Active [id number] 3 2023 90 Pharmac y Data Transac tion Service Facilit y POTASSIUM CHLORIDE 20MEQ TAB,SA (DISPERSIBL E) TAKE ONE TABLET BY MOUTH TWICE A DAY ORAL ACTIVE Jey HANSON 2021 [facility] SANTYL (collagenas e Clostridium histolyticu m), 250 UNIT/G, OINT. (G), TOPICAL, WHITLOCK&N/UNI LUIS, 30 g TUBE Cancele d [id number] : 2023 0 Pharmac y Data Transac tion Service Facilit y WARFARIN SODIUM (warfarin sodium), 5 MG, TABLET, ORAL, [employer] 1000 ea. BOTTLE Cancele d [id number] : 2022 0 Pharmac y Data Transac tion Service Facilit y WARFARIN SODIUM (WARFARIN SODIUM), 5 MG, TABLET, ORAL, [employer], 1000 ea. BOTTLE Active [id number] 2023 12 Pharmac y Data Transac tion Service Facilit y WARFARIN SODIUM (WARFARIN SODIUM), 5 MG, TABLET, ORAL, [employer] [place], 1000 ea. BOTTLE Active [id number] 2023 40 Pharmac y Data Transac tion Service Facilit y WARFARIN SODIUM (WARFARIN SODIUM), 5 MG, TABLET, ORAL, [employer] [place], 1000 ea. BOTTLE Cancele d [id number] : 2022 0 Pharmac y Data Transac tion Service Facilit y WARFARIN SODIUM (warfarin sodium), 7.5 MG, TABLET, ORAL, [employer] [place], 100 ea. BOTTLE Active [id number] 2023 51 Pharmac y Data Transac tion Service Facilit y WARFARIN SODIUM (warfarin sodium), 7.5 MG, TABLET, ORAL, [employer] [place], 100 ea. BOTTLE Active [id number] 4 2023 78 Pharmac y Data Transac tion Service Facilit y WARFARIN TAB TAKE 5MG BY MOUTH SUN/THUR S AND TAKE 7.5MG BY MOUTH ALL OTHER DAYS ORAL ACTIVE Jagdish BARRETT 2022 [facility] Allergies, Adverse Reactions, Alerts Combined list of allergies from Department of [facility] ([place], [place]) and 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 It does not [...] reactions to drug (finding) Eruption active 2 [facility] Immunizations Combined list of available immunizations from the Department of [facility] ([place], [place]) and 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 Immunization Series Date Given Administered By Site Reaction Lot Number CVX Code Drug Multimedia Services Coordinator Status Comments Source INFLUENZA, UNSPECIFIED FORMULATION 2021 88 complet ed 's recall [facility] TD (ADULT), 5 LF TETANUS TOXOID, PRESERVATIVE FREE, ADSORBED 2021 113 complet ed [facility] INFLUENZA, UNSPECIFIED FORMULATION 2020 88 complet ed [facility] COVID-19 (PFIZER), MRNA, LNP-S, PF, 30 MCG/0.3 ML DOSE 3 2020 208 complet ed [facility] COVID-19 (PFIZER), MRNA, LNP-S, PF, 30 MCG/0.3 ML DOSE 2 2020 208 complet ed [facility] COVID-19 (PFIZER), MRNA, LNP-S, PF, 30 MCG/0.3 ML DOSE 1 2020 208 complet ed [facility] PNEUMOCOCCAL CONJUGATE PCV 13 2014 133 complet ed [facility] ZOSTER LIVE 2012 121 complet ed [facility] PNEUMOCOCCAL POLYSACCHARID E PPV23 2010 33 complet ed [facility] TDAP 2010 115 complet ed [facility] Results Combined list of recent chemistry, hematology and other laboratory results from Department of Defense and Veterans Affairs, ranging from 15 months to all on record, depending upon the facility. Order Name Results Value Reference Range Date Interpretation Specimen Comments Source CYSTATIN C WITH EGFR CYSTATIN C [MASS/VOLU ME] IN SERUM OR PLASMA 1.27 mg/L 0.51 - 1.05 02/13 H Specimen Type: PLASMA No comment entered. Ordering Provider: ANKUSH BOWMAN Report Released Date/Time: Feb 05, 2023 03:10 PM Reporting Lab: [facility] [phone] Performing Lab: [facility] [phone] [facility] CYSTATIN C WITH EGFR CYSTATIN C AND GLOMERULAR FILTRATION RATE BY CYSTATIN C-BASED FORMULA PANEL - SERUM OR PLASMA 53 60 02/13 L Specimen Type: PLASMA No comment entered. Ordering Provider: ANKUSH BOWMAN Report Released Date/Time: Feb 05, 2023 03:10 PM Reporting Lab: [facility] [phone] Performing Lab: [facility] [phone] [facility] BASIC METABOLI C PANEL+MG CREATININE [MASS/VOLU ME] IN SERUM OR PLASMA 0.7 mg/dL 0.7 - 1.2 02/13 Specimen Type: PLASMA No comment entered. Ordering Provider: ANKUSH BOWMAN Report Released Date/Time: Feb 05, 2023 03:10 PM Reporting Lab: [facility] [phone] Performing Lab: [facility] [phone] [place] [facility] BASIC METABOLI C PANEL+MG UREA NITROGEN [MASS/VOLU ME] IN SERUM OR PLASMA 15 mg/dL 8 - 26 02/13 Specimen Type: PLASMA No comment entered. Ordering Provider: ANKUSH BOWMAN Report Released Date/Time: Feb 05, 2023 03:10 PM Reporting Lab: [facility] [phone] Performing Lab: [facility] [address] [place] [facility] BASIC METABOLI C PANEL+MG GLUCOSE [MASS/VOLU ME] IN SERUM OR PLASMA 140 mg/dL 70 - 100 02/13 H Specimen Type: PLASMA No comment entered. Ordering Provider: ANKUSH BOWMAN Report Released Date/Time: Feb 05, 2023 03:10 PM Reporting Lab: [facility] [phone] Performing Lab: [facility] [phone] [place] [facility] BASIC METABOLI C PANEL+MG SODIUM [MOLES/VOL UME] IN SERUM OR PLASMA 135 mmol/L 136 - 145 02/13 L Specimen Type: PLASMA No comment entered. Ordering Provider: ANKUSH BOWMAN Report Released Date/Time: Feb 05, 2023 03:10 PM Reporting Lab: [facility] [phone] Performing Lab: [facility] [phone] [place] [facility] BASIC METABOLI C PANEL+MG POTASSIUM [MOLES/VOL UME] IN SERUM OR PLASMA 4.0 mmol/L 3.5 - 5.1 02/13 Specimen Type: PLASMA No comment entered. Ordering Provider: ANKUSH BOWMAN Report Released Date/Time: Feb 05, 2023 03:10 PM Reporting Lab: [facility] [phone] Performing Lab: [facility] [phone] [place] [facility] BASIC METABOLI C PANEL+MG CHLORIDE [MOLES/VOL UME] IN SERUM OR PLASMA 99 mmol/L 98 - 107 02/13 Specimen Type: PLASMA No comment entered. Ordering Provider: ANKUSH BOWMAN Report Released Date/Time: Feb 05, 2023 03:10 PM Reporting Lab: [facility] [phone] Performing Lab: [facility] [phone] [place] [facility] BASIC METABOLI C PANEL+MG CARBON DIOXIDE, TOTAL [MOLES/VOL UME] IN SERUM OR PLASMA 29 mmol/L 22 - 29 02/13 Specimen Type: PLASMA No comment entered. Ordering Provider: ANKUSH BOWMAN Report Released Date/Time: Feb 05, 2023 03:10 PM Reporting Lab: [facility] [phone] Performing Lab: [facility] [phone] [place] [facility] BASIC METABOLI C PANEL+MG CALCIUM [MASS/VOLU ME] IN SERUM OR PLASMA 9.2 mg/dL 8.4 - 10.2 02/13 Specimen Type: PLASMA No comment entered. Ordering Provider: ANKUSH BOWMAN Report Released Date/Time: Feb 05, 2023 03:10 PM Reporting Lab: [facility] [phone] Performing Lab: [facility] [phone] [place] [facility] BASIC METABOLI C PANEL+MG MAGNESIUM [MASS/VOLU ME] IN SERUM OR PLASMA 2.0 mg/dL 1.6 - 2.6 02/13 Specimen Type: PLASMA No comment entered. Ordering Provider: ANKUSH OBWMAN Report Released Date/Time: Feb 05, 2023 03:10 PM Reporting Lab: [facility] [phone] Performing Lab: [facility] [phone] [place] [facility] BASIC METABOLI C PANEL+MG ANION GAP IN SERUM OR PLASMA 7 mmol/L 5 - 15 02/13 Specimen Type: PLASMA No comment entered. Ordering Provider: ANKUSH BOWMAN Report Released Date/Time: Feb 05, 2023 03:10 PM Reporting Lab: [facility] [phone] Performing Lab: [facility] [phone] [place] [facility] BASIC METABOLI C PANEL+MG GLOMERULAR FILTRATION RATE/1.73 SQ M.PREDICTE D [VOLUME RATE/AREA] IN SERUM, PLASMA OR BLOOD BY CREATININE -BASED FORMULA (CKD-EPI) >90 60 02/13 Specimen Type: PLASMA No comment entered. Ordering Provider: ANKUSH BOWMAN Report Released Date/Time: Feb 05, 2023 03:10 PM Reporting Lab: [facility] [phone] Performing Lab: [facility] [phone] [place] [facility] URINALYS IS COLOR OF URINE YELLOW 10/08 Specimen Type: URINE No comment entered. Ordering Provider: ANKUSH BOWMAN Report Released Date/Time: Sep 24, 2022 01:55 PM Reporting Lab: [facility] [phone] Performing Lab: [facility] [phone] [place] [facility] URINALYS IS SPECIFIC GRAVITY OF URINE 1.023 1.003 - 1.035 10/08 Specimen Type: URINE No comment entered. Ordering Provider: ANKUSH BOWMAN Report Released Date/Time: Sep 24, 2022 01:55 PM Reporting Lab: [facility] [phone] Performing Lab: [facility] [phone] [place] [facility] URINALYS IS BILIRUBIN. TOTAL [PRESENCE] IN URINE BY TEST STRIP NEGATIVE 10/08 Specimen Type: URINE No comment entered. Ordering Provider: ANKUSH BOWMAN Report Released Date/Time: Sep 24, 2022 01:55 PM Reporting Lab: [facility] [phone] Performing Lab: [facility] [phone] [place] [facility] URINALYS IS KETONES [MASS/VOLU ME] IN URINE BY TEST STRIP NEGATIVE 10/08 Specimen Type: URINE No comment entered. Ordering Provider: ANKUSH BOWMAN Report Released Date/Time: Sep 24, 2022 01:55 PM Reporting Lab: [facility] [phone] Performing Lab: [facility] [phone] [place] [facility] URINALYS IS GLUCOSE [MASS/VOLU ME] IN URINE BY TEST STRIP NEGATIVE mg/dL <30 - 30 10/08 Specimen Type: URINE No comment entered. Ordering Provider: ANKUSH BOWMAN Report Released Date/Time: Sep 24, 2022 01:55 PM Reporting Lab: [facility] [phone] Performing Lab: [facility] [phone] [place] [facility] URINALYS IS PROTEIN [MASS/VOLU ME] IN URINE BY TEST STRIP 30 mg/dL <20 - 20 10/08 Specimen Type: URINE No comment entered. Ordering Provider: ANKUSH BOWMAN Report Released Date/Time: Sep 24, 2022 01:55 PM Reporting Lab: [facility] [phone] Performing Lab: [facility] [phone] [place] [facility] URINALYS IS PH OF URINE BY TEST STRIP 7.5 5.0 - 8.0 10/08 Specimen Type: URINE No comment entered. Ordering Provider: ANKUSH BOWMAN Report Released Date/Time: Sep 24, 2022 01:55 PM Reporting Lab: [facility] [phone] Performing Lab: [facility] [phone] [place] [facility] URINALYS IS LEUKOCYTES [#/AREA] IN URINE SEDIMENT BY MICROSCOPY HIGH POWER FIELD >180/[HP F] 0 - 7 10/08 H Specimen Type: URINE No comment entered. Ordering Provider: ANKUSH BOWMAN Report Released Date/Time: Sep 24, 2022 01:55 PM Reporting Lab: [facility] [phone] Performing Lab: [facility] [phone] [place] [facility] URINALYS IS BACTERIA [PRESENCE] IN URINE SEDIMENT BY LIGHT MICROSCOPY MANY 10/08 Specimen Type: URINE No comment entered. Ordering Provider: ANKUSH BOWMAN Report Released Date/Time: Sep 24, 2022 01:55 PM Reporting Lab: [facility] [phone] Performing Lab: [facility] [phone] [place] [facility] URINALYS IS ERYTHROCYT ES [#/AREA] IN URINE SEDIMENT BY MICROSCOPY HIGH POWER FIELD 33 /[HPF] 0 - 3 10/08 H Specimen Type: URINE No comment entered. Ordering Provider: ANKUSH BOWMAN Report Released Date/Time: Sep 24, 2022 01:55 PM Reporting Lab: [facility] [phone] Performing Lab: [facility] [phone] [place] [facility] URINALYS IS APPEARANCE OF URINE EX.TURBI D 10/08 Specimen Type: URINE No comment entered. Ordering Provider: ANKUSH BOWMAN Report Released Date/Time: Sep 24, 2022 01:55 PM Reporting Lab: [facility] [phone] Performing Lab: [facility] [phone] [place] [facility] URINALYS IS EPITHELIAL CELLS.SQUA MOUS [#/AREA] IN URINE SEDIMENT BY MICROSCOPY HIGH POWER FIELD 1 /[HPF] 10/08 Specimen Type: URINE No comment entered. Ordering Provider: ANKUSH BOWMAN Report Released Date/Time: Sep 24, 2022 01:55 PM Reporting Lab: [facility] [phone] Performing Lab: [facility] [phone] [place] [facility] URINALYS IS HEMOGLOBIN [PRESENCE] IN URINE BY TEST STRIP 1+ 10/08 Specimen Type: URINE No comment entered. Ordering Provider: ANKUSH BOWMAN Report Released Date/Time: Sep 24, 2022 01:55 PM Reporting Lab: [facility] [id number] Performing Lab: [facility] [id number] [place] [facility] URINALYS IS NITRITE [PRESENCE] IN URINE BY TEST STRIP NEGATIVE 10/08 Specimen Type: URINE No comment entered. Ordering Provider: ANKUSH BOWMAN Report Released Date/Time: Sep 24, 2022 01:55 PM Reporting [facility]: [facility] [facility] [address] Performing Lab: [facility] [address] [place] [facility] URINALYS IS LEUKOCYTE CLUMPS [#/VOLUME] IN URINE BY AUTOMATED COUNT PRESENT 10/08 Specimen Type: URINE No comment entered. Ordering Provider: ANKUSH BOWMAN Report Released Date/Time: Sep 24, 2022 01:55 PM Reporting Lab: [facility] [address] Performing Lab: [facility] [address] [place] [facility] URINALYS IS LEUKOCYTE ESTERASE [PRESENCE] IN URINE BY TEST STRIP 500 10/08 Specimen Type: URINE No comment entered. Ordering Provider: ANKUSH BOWMAN Report Released Date/Time: Sep 24, 2022 01:55 PM Reporting Lab: [facility] [address] Performing Lab: [facility] [address] [place] [facility] ALBUMIN ALBUMIN [MASS/VOLU ME] IN SERUM OR PLASMA 4.2 g/dL 3.5 - 5.2 10/08 Specimen Type: PLASMA No comment entered. Ordering Provider: ANKUSH BOWMAN Report Released Date/Time: Sep 24, 2022 01:55 PM Reporting Lab: [facility] [address] Performing Lab: [facility] [address] [place] [facility] PRE-ALBU MIN PREALBUMIN [MASS/VOLU ME] IN SERUM OR PLASMA 28.4 mg/dL 14.0 - 45.0 10/08 Specimen Type: SERUM No comment entered. Ordering Provider: ANKUSH BOWMAN Report Released Date/Time: Sep 24, 2022 01:55 PM Reporting Lab: [facility] [address] Performing Lab: [facility] [address] [place] [facility] COMPREHE NSIVE METABOLI C PANEL+MG CREATININE [MASS/VOLU ME] IN SERUM OR PLASMA 0.7 mg/dL 0.7 - 1.2 10/08 Specimen Type: PLASMA No comment entered. Ordering Provider: ANKUSH BOWMAN Report Released Date/Time: Sep 24, 2022 01:55 PM Reporting Lab: [facility] [address] Performing Lab: [facility] [address] [place] [facility] COMPREHE NSIVE METABOLI C PANEL+MG UREA NITROGEN [MASS/VOLU ME] IN SERUM OR PLASMA 16 mg/dL 8 - 26 10/08 Specimen Type: PLASMA No comment entered. Ordering Provider: ANKUSH BOWMAN Report Released Date/Time: Sep 24, 2022 01:55 PM Reporting Lab: [facility] [address] Performing Lab: [facility] [address] [place] [facility] COMPREHE NSIVE METABOLI C PANEL+MG GLUCOSE [MASS/VOLU ME] IN SERUM OR PLASMA 94 mg/dL 70 - 100 10/08 Specimen Type: PLASMA No comment entered. Ordering Provider: ANKUSH BOWMAN Report Released Date/Time: Sep 24, 2022 01:55 PM Reporting Lab: [facility] [address] Performing Lab: [facility] [address] [place] [facility] COMPREHE NSIVE METABOLI C PANEL+MG SODIUM [MOLES/VOL UME] IN SERUM OR PLASMA 138 mmol/L 136 - 145 10/08 Specimen Type: PLASMA No comment entered. Ordering Provider: ANKUSH BOWMAN Report Released Date/Time: Sep 24, 2022 01:55 PM Reporting Lab: [facility] [address] Performing Lab: [facility] [address] [place] [facility] COMPREHE NSIVE METABOLI C PANEL+MG POTASSIUM [MOLES/VOL UME] IN SERUM OR PLASMA 3.9 mmol/L 3.5 - 5.1 10/08 Specimen Type: PLASMA No comment entered. Ordering Provider: ANKUSH BOWMAN Report Released Date/Time: Sep 24, 2022 01:55 PM Reporting Lab: [facility] [address] Performing Lab: [facility] [address] [place] [facility] COMPREHE NSIVE METABOLI C PANEL+MG CHLORIDE [MOLES/VOL UME] IN SERUM OR PLASMA 101 mmol/L 98 - 107 10/08 Specimen Type: PLASMA No comment entered. Ordering Provider: ANKUSH BOWMAN Report Released Date/Time: Sep 24, 2022 01:55 PM Reporting Lab: [facility] [address] Performing Lab: [facility] [address] [place] [facility] COMPREHE NSIVE METABOLI C PANEL+MG CARBON DIOXIDE, TOTAL [MOLES/VOL UME] IN SERUM OR PLASMA 28 mmol/L 22 - 29 10/08 Specimen Type: PLASMA No comment entered. Ordering Provider: ANKUSH BOWMAN Report Released Date/Time: Sep 24, 2022 01:55 PM Reporting Lab: [facility] [address] Performing Lab: [facility] [address] [place] [facility] COMPREHE NSIVE METABOLI C PANEL+MG CALCIUM [MASS/VOLU ME] IN SERUM OR PLASMA 9.7 mg/dL 8.4 - 10.2 10/08 Specimen Type: PLASMA No comment entered. Ordering Provider: ANKUSH BOWMAN Report Released Date/Time: Sep 24, 2022 01:55 PM Reporting Lab: [facility] [address] Performing Lab: [facility] [address] [place] [facility] COMPREHE NSIVE METABOLI C PANEL+MG PROTEIN [MASS/VOLU ME] IN SERUM OR PLASMA 7.6 g/dL 6.0 - 8.3 10/08 Specimen Type: PLASMA No comment entered. Ordering Provider: ANKUSH BOWMAN Report Released Date/Time: Sep 24, 2022 01:55 PM Reporting Lab: [facility] [address] Performing Lab: [facility] [address] [place] [facility] COMPREHE NSIVE METABOLI C PANEL+MG ALBUMIN [MASS/VOLU ME] IN SERUM OR PLASMA 4.2 g/dL 3.5 - 5.2 10/08 Specimen Type: PLASMA No comment entered. Ordering Provider: ANKUSH BOWMAN Report Released Date/Time: Sep 24, 2022 01:55 PM Reporting Lab: [facility] [address] Performing Lab: [facility] [address] [place] [facility] COMPREHE NSIVE METABOLI C PANEL+MG BILIRUBIN. TOTAL [MASS/VOLU ME] IN SERUM OR PLASMA 0.6 mg/dL 0.2 - 1.2 11/28 /2022 Specimen Type: PLASMA No comment entered. Ordering Provider: ANKUSH BOWMAN Report Released Date/Time: Sep 24, 2022 01:55 PM Reporting Lab: [facility] [address] Performing Lab: [facility] [address] [place] [facility] COMPREHE NSIVE METABOLI C PANEL+MG MAGNESIUM [MASS/VOLU ME] IN SERUM OR PLASMA 2.1 mg/dL 1.6 - 2.6 10/08 Specimen Type: PLASMA No comment entered. Ordering Provider: ANKUSH BOWMAN Report Released Date/Time: Sep 24, 2022 01:55 PM Reporting Lab: [facility] [address] Performing Lab: [facility] [address] [place] [facility] COMPREHE NSIVE METABOLI C PANEL+MG ANION GAP IN SERUM OR PLASMA 9 mmol/L 5 - 15 10/08 Specimen Type: PLASMA No comment entered. Ordering Provider: ANKUSH BOWMAN Report Released Date/Time: Sep 24, 2022 01:55 PM Reporting Lab: [facility] [address] Performing Lab: [facility] [address] [place] [facility] COMPREHE NSIVE METABOLI C PANEL+MG ALKALINE PHOSPHATAS E [ENZYMATIC ACTIVITY/V OLUME] IN SERUM OR PLASMA 96 U/L 40 - 150 10/08 Specimen Type: PLASMA No comment entered. Ordering Provider: ANKUSH BOWMAN Report Released Date/Time: Sep 24, 2022 01:55 PM Reporting Lab: [facility] [phone] Performing Lab: [facility] [address] [place] [facility] COMPREHE NSIVE METABOLI C PANEL+MG ALANINE AMINOTRANS FERASE [ENZYMATIC ACTIVITY/V OLUME] IN SERUM OR PLASMA 29 U/L <55 - 55 10/08 Specimen Type: PLASMA No comment entered. Ordering Provider: ANKUSH BOWMAN Report Released Date/Time: Sep 24, 2022 01:55 PM Reporting Lab: [facility] [address] Performing Lab: [facility] [address] [place] [facility] COMPREHE NSIVE METABOLI C PANEL+MG ASPARTATE AMINOTRANS FERASE [ENZYMATIC ACTIVITY/V OLUME] IN SERUM OR PLASMA 22 U/L <34 - 34 10/08 Specimen Type: PLASMA No comment entered. Ordering Provider: ANKUSH BOWMAN Report Released Date/Time: Sep 24, 2022 01:55 PM Reporting Lab: [facility] [address] Performing Lab: [facility] [address] [place] [facility] COMPREHE NSIVE METABOLI C PANEL+MG GLOMERULAR FILTRATION RATE/1.73 SQ M.PREDICTE D [VOLUME RATE/AREA] IN SERUM, PLASMA OR BLOOD BY CREATININE -BASED FORMULA (CKD-EPI) >90 60 10/08 Specimen Type: PLASMA No comment entered. Ordering Provider: ANKUSH BOWMAN Report Released Date/Time: Sep 24, 2022 01:55 PM Reporting Lab: [facility] [address] Performing Lab: [facility] [address] [facility] CBC & DIFF LEUKOCYTES [#/VOLUME] IN BLOOD BY AUTOMATED COUNT 7.32 10*3/uL 4.0 - 11.0 10/08 Specimen Type: BLOOD Comment: Automated Differentia l Performed Ordering Provider: ANKUSH BOWMAN Report Released Date/Time: Sep 24, 2022 01:55 PM Reporting Lab: [facility] [address] Performing Lab: [facility] [address] [place] [facility] CBC & DIFF ERYTHROCYT ES [#/VOLUME] IN BLOOD BY AUTOMATED COUNT 4.80 10*6/uL 4.6 - 6.2 10/08 Specimen Type: BLOOD Comment: Automated Differentia l Performed Ordering Provider: ANKUSH BOWMAN Report Released Date/Time: Sep 24, 2022 01:55 PM Reporting Lab: [facility] [address] Performing Lab: [facility] [address] [place] [facility] CBC & DIFF HEMOGLOBIN [MASS/VOLU ME] IN BLOOD 14.7 g/dL 13.5 - 17.9 10/08 Specimen Type: BLOOD Comment: Automated Differentia l Performed Ordering Provider: ANKUSH BOWMAN Report Released Date/Time: Sep 24, 2022 01:55 PM Reporting Lab: [facility] [address] Performing Lab: [facility] [address] [place] [facility] CBC & DIFF HEMATOCRIT [VOLUME FRACTION] OF BLOOD BY AUTOMATED COUNT 44.2 41 - 54 10/08 Specimen Type: BLOOD Comment: Automated Differentia l Performed Ordering Provider: ANKUSH BOWMAN Report Released Date/Time: Sep 24, 2022 01:55 PM Reporting Lab: [facility] [address] Performing Lab: [facility] [address] [place] [facility] CBC & DIFF MCV [ENTITIC VOLUME] BY AUTOMATED COUNT 92.1 fL 80 - 100 10/08 Specimen Type: BLOOD Comment: Automated Differentia l Performed Ordering Provider: ANKUSH BOWMAN Report Released Date/Time: Sep 24, 2022 01:55 PM Reporting Lab: [facility] [address] Performing Lab: [facility] [address] [place] [facility] CBC & DIFF MCH [ENTITIC MASS] BY AUTOMATED COUNT 30.6 pg 27 - 33 10/08 Specimen Type: BLOOD Comment: Automated Differentia l Performed Ordering Provider: ANKUSH BOWMAN Report Released Date/Time: Sep 24, 2022 01:55 PM Reporting Lab: [facility] [address] Performing Lab: [facility] [address] [place] [facility] CBC & DIFF MCHC [MASS/VOLU ME] BY AUTOMATED COUNT 33.3 g/dL 32.0 - 37.5 10/08 Specimen Type: BLOOD Comment: Automated Differentia l Performed Ordering Provider: ANKUSH BOWMAN Report Released Date/Time: Sep 24, 2022 01:55 PM Reporting Lab: [facility] [address] Performing Lab: [facility] [address] [place] [facility] CBC & DIFF PLATELETS [#/VOLUME] IN BLOOD BY AUTOMATED COUNT 144 10*3/uL 150 - 400 10/08 L Specimen Type: BLOOD Comment: Automated Differentia l Performed Ordering Provider: ANKUSH BOWMAN Report Released Date/Time: Sep 24, 2022 01:55 PM Reporting Lab: [facility] [address] Performing Lab: [facility] [address] [place] [facility] CBC & DIFF PLATELET MEAN VOLUME [ENTITIC VOLUME] IN BLOOD BY AUTOMATED COUNT 10.8 fL 7.4 - 10.4 10/08 H Specimen Type: BLOOD Comment: Automated Differentia l Performed Ordering Provider: ANKUSH BOWMAN Report Released Date/Time: Sep 24, 2022 01:55 PM Reporting Lab: [facility] [address] Performing Lab: [facility] [address] [place] [facility] CBC & DIFF NEUTROPHIL S/100 LEUKOCYTES IN BLOOD BY MANUAL COUNT 55.5 10/08 Specimen Type: BLOOD Comment: Automated Differentia l Performed Ordering Provider: ANKUSH BOWMAN Report Released Date/Time: Sep 24, 2022 01:55 PM Reporting Lab: [facility] [address] Performing Lab: [facility] [address] [place] [facility] CBC & DIFF LYMPHOCYTE S/100 LEUKOCYTES IN BLOOD BY MANUAL COUNT 31.4 10/08 Specimen Type: BLOOD Comment: Automated Differentia l Performed Ordering Provider: NAKUSH BOWMAN Report Released Date/Time: Sep 24, 2022 01:55 PM Reporting Lab: [facility] [address] Performing Lab: [facility] [address] [place] [facility] CBC & DIFF MONOCYTES/ 100 LEUKOCYTES IN BLOOD BY AUTOMATED COUNT 10.2 10/08 Specimen Type: BLOOD Comment: Automated Differentia l Performed Ordering Provider: ANKUSH BOWMAN Report Released Date/Time: Sep 24, 2022 01:55 PM Reporting Lab: [facility] [address] Performing Lab: [facility] [address] [place] [facility] CBC & DIFF EOSINOPHIL S/100 LEUKOCYTES IN BLOOD BY AUTOMATED COUNT 2.2 10/08 Specimen Type: BLOOD Comment: Automated Differentia l Performed Ordering Provider: ANKUSH BOWMAN Report Released Date/Time: Sep 24, 2022 01:55 PM Reporting Lab: [facility] [address] Performing Lab: [facility] [address] [place] [facility] CBC & DIFF BASOPHILS/ 100 LEUKOCYTES IN BLOOD BY MANUAL COUNT 0.4 10/08 Specimen Type: BLOOD Comment: Automated Differentia l Performed Ordering Provider: ANKUSH BOWMAN Report Released Date/Time: Sep 24, 2022 01:55 PM Reporting Lab: [facility] [address] Performing Lab: [facility] [address] [place] [facility] CBC & DIFF ERYTHROCYT E DISTRIBUTI ON WIDTH [RATIO] BY AUTOMATED COUNT 15.9 11.5 - 14.5 10/08 H Specimen Type: BLOOD Comment: Automated Differentia l Performed Ordering Provider: ANKUSH BOWMAN Report Released Date/Time: Sep 24, 2022 01:55 PM Reporting Lab: [facility] [address] Performing Lab: [facility] [address] [place] [facility] CBC & DIFF LYMPHOCYTE S [#/VOLUME] IN BLOOD BY AUTOMATED COUNT 2.30 10*3/uL 1.0 - 4.0 10/08 Specimen Type: BLOOD Comment: Automated Differentia l Performed Ordering Provider: ANKUSH BOWMAN Report Released Date/Time: Sep 24, 2022 01:55 PM Reporting Lab: [facility] [address] Performing Lab: [facility] [address] [place] [facility] CBC & DIFF MONOCYTES [#/VOLUME] IN BLOOD BY AUTOMATED COUNT 0.75 10*3/uL 0.1 - 1.0 10/08 Specimen Type: BLOOD Comment: Automated Differentia l Performed Ordering Provider: ANKUSH BOWMAN Report Released Date/Time: Sep 24, 2022 01:55 PM Reporting Lab: [facility] [address] Performing Lab: [facility] [address] [place] [facility] CBC & DIFF NEUTROPHIL S [#/VOLUME] IN BLOOD BY AUTOMATED COUNT 4.06 10*3/uL 2.0 - 7.7 10/08 Specimen Type: BLOOD Comment: Automated Differentia l Performed Ordering Provider: ANKUSH BOWMAN Report Released Date/Time: Sep 24, 2022 01:55 PM Reporting Lab: [facility] [address] Performing Lab: [facility] [address] [place] [facility] CBC & DIFF EOSINOPHIL S [#/VOLUME] IN BLOOD BY AUTOMATED COUNT 0.16 10*3/uL 0 - 0.5 10/08 Specimen Type: BLOOD Comment: Automated Differentia l Performed Ordering Provider: ANKUSH BOWMAN Report Released Date/Time: Sep 24, 2022 01:55 PM Reporting Lab: [facility] [address] Performing Lab: [facility] [address] [place] [facility] CBC & DIFF BASOPHILS [#/VOLUME] IN BLOOD BY AUTOMATED COUNT 0.03 10*3/uL 0 - 0.2 10/08 Specimen Type: BLOOD Comment: Automated Differentia l Performed Ordering Provider: ANKUSH BOWMAN Report Released Date/Time: Sep 24, 2022 01:55 PM Reporting Lab: [facility] [address] Performing Lab: [facility] [address] [place] [facility] CBC & DIFF IG(META,MY MALACHI,PRO) 0.3 10/08 Specimen Type: BLOOD Comment: Automated Differentia l Performed Ordering Provider: ANKUSH BOWMAN Report Released Date/Time: Sep 24, 2022 01:55 PM Reporting Lab: [facility] [address] Performing Lab: [facility] [address] [place] [facility] CBC & DIFF IMMATURE GRANULOCYT ES [PRESENCE] IN BLOOD BY AUTOMATED COUNT 0.02 10*3/uL 0 - 0.1 10/08 Specimen Type: BLOOD Comment: Automated Differentia l Performed Ordering Provider: ANKUHS BOWMAN Report Released Date/Time: Sep 24, 2022 01:55 PM Reporting Lab: [facility] [address] Performing Lab: [facility] [address] [place] [facility] CYSTATIN C WITH EGFR CYSTATIN C [MASS/VOLU ME] IN SERUM OR PLASMA 1.38 mg/L 0.51 - 1.05 10/08 H Specimen Type: PLASMA No comment entered. Ordering Provider: ANKUSH BOWMAN Report Released Date/Time: Sep 24, 2022 01:55 PM Reporting Lab: [facility] [address] Performing Lab: [facility] [address] [place] [facility] CYSTATIN C WITH EGFR CYSTATIN C AND GLOMERULAR FILTRATION RATE BY CYSTATIN-B ASED FORMULA PANEL - SERUM OR PLASMA 48 60 10/08 L Specimen Type: PLASMA No comment entered. Ordering Provider: ANKUSH BOWMAN Report Released Date/Time: Sep 24, 2022 01:55 PM Reporting Lab: [facility] [address] Performing Lab: [facility] [address] [facility] VIT D 25-OH,TO ZAMZAM 25-HYDROXY VITAMIN D3 [MASS/VOLU ME] IN SERUM OR PLASMA 54 ng/mL 12 - 50 10/08 H Specimen Type: SERUM No comment entered. Ordering Provider: ANKUSH BOWMAN Report Released Date/Time: Sep 24, 2022 01:55 PM Reporting Lab: [facility] [address] Performing Lab: [facility] [address] [place] [facility] COMPREHE NSIVE METABOLI C PANEL+MG CREATININE [MASS/VOLU ME] IN SERUM OR PLASMA 0.7 mg/dL 0.7 - 1.2 05/28 Specimen Type: PLASMA No comment entered. Ordering Provider: GERMANIA HANSON Report Released Date/Time: May 28, 2022 03:06 PM Reporting Lab: [facility] [address] Performing Lab: [facility] [address] [facility] COMPREHE NSIVE METABOLI C PANEL+MG UREA NITROGEN [MASS/VOLU ME] IN SERUM OR PLASMA 13 mg/dL 8 - 26 05/28 Specimen Type: PLASMA No comment entered. Ordering Provider: GERMANIA HANSON Report Released Date/Time: May 28, 2022 03:06 PM Reporting Lab: [facility] [address] Performing Lab: [facility] [address] [facility] COMPREHE NSIVE METABOLI C PANEL+MG GLUCOSE [MASS/VOLU ME] IN SERUM OR PLASMA 98 mg/dL 74 - 100 05/28 Specimen Type: PLASMA No comment entered. Ordering Provider: GERMANIA HANSON Report Released Date/Time: May 28, 2022 03:06 PM Reporting Lab: [facility] [address] Performing Lab: [facility] [address] [facility] COMPREHE NSIVE METABOLI C PANEL+MG SODIUM [MOLES/VOL UME] IN SERUM OR PLASMA 138 mmol/L 136 - 145 05/28 Specimen Type: PLASMA No comment entered. Ordering Provider: GERMANIA HANSON Report Released Date/Time: May 28, 2022 03:06 PM Reporting Lab: [facility] [address] Performing Lab: [facility] [address] [facility] COMPREHE NSIVE METABOLI C PANEL+MG POTASSIUM [MOLES/VOL UME] IN SERUM OR PLASMA 4.4 mmol/L 3.5 - 5.1 05/28 Specimen Type: PLASMA No comment entered. Ordering Provider: GERMANIA HANSON Report Released Date/Time: May 28, 2022 03:06 PM Reporting Lab: [facility] [address] Performing Lab: [facility] [address] [facility] COMPREHE NSIVE METABOLI C PANEL+MG CHLORIDE [MOLES/VOL UME] IN SERUM OR PLASMA 102 mmol/L 98 - 107 05/28 Specimen Type: PLASMA No comment entered. Ordering Provider: GERMANIA HANSON Report Released Date/Time: May 28, 2022 03:06 PM Reporting Lab: [facility] [address] Performing Lab: [facility] [address] [facility] COMPREHE NSIVE METABOLI C PANEL+MG CARBON DIOXIDE, TOTAL [MOLES/VOL UME] IN SERUM OR PLASMA 28 mmol/L 22 - 29 05/28 Specimen Type: PLASMA No comment entered. Ordering Provider: GERMANIA HANSON Report Released Date/Time: May 28, 2022 03:06 PM Reporting Lab: [facility] [address] Performing Lab: [facility] [address] [facility] COMPREHE NSIVE METABOLI C PANEL+MG CALCIUM [MASS/VOLU ME] IN SERUM OR PLASMA 9.4 mg/dL 8.4 - 10.2 05/28 Specimen Type: PLASMA No comment entered. Ordering Provider: GERMANIA HANSON Report Released Date/Time: May 28, 2022 03:06 PM Reporting Lab: [facility] [address] Performing Lab: [place] [phone] [facility] COMPREHE NSIVE METABOLI C PANEL+MG PROTEIN [MASS/VOLU ME] IN SERUM OR PLASMA 7.6 g/dL 6.0 - 8.3 05/28 Specimen Type: PLASMA No comment entered. Ordering Provider: GERMANIA HANSON Report Released Date/Time: May 28, 2022 03:06 PM Reporting Lab: [facility] [address] Performing Lab: [facility] [address] [facility] COMPREHE NSIVE METABOLI C PANEL+MG ALBUMIN [MASS/VOLU ME] IN SERUM OR PLASMA 4.0 g/dL 3.5 - 5.2 05/28 Specimen Type: PLASMA No comment entered. Ordering Provider: GERMANIA HANSON Report Released Date/Time: May 28, 2022 03:06 PM Reporting Lab: [facility] [address] Performing Lab: [facility] [address] [facility] COMPREHE NSIVE METABOLI C PANEL+MG BILIRUBIN. TOTAL [MASS/VOLU ME] IN SERUM OR PLASMA 0.5 mg/dL 0.2 - 1.2 05/28 Specimen Type: PLASMA No comment entered. Ordering Provider: GERMANIA HANSON Report Released Date/Time: May 28, 2022 03:06 PM Reporting Lab: [facility] [phone] Performing Lab: [facility] [id number] [facility] COMPREHE NSIVE METABOLI C PANEL+MG MAGNESIUM [MASS/VOLU ME] IN SERUM OR PLASMA 2.1 mg/dL 1.6 - 2.6 05/28 Specimen Type: PLASMA No comment entered. Ordering Provider: GERMANIA HANSON Report Released Date/Time: May 28, 2022 03:06 PM Reporting Lab: [facility] [id number] Performing Lab: [facility] [id number] [facility] COMPREHE NSIVE METABOLI C PANEL+MG ANION GAP IN SERUM OR PLASMA 8 mmol/L 5 - 15 05/28 Specimen Type: PLASMA No comment entered. Ordering Provider: GERMANIA HANSON Report Released Date/Time: May 28, 2022 03:06 PM Reporting Lab: [facility] [phone] Performing Lab: [facility] [phone] [facility] COMPREHE NSIVE METABOLI C PANEL+MG ALKALINE PHOSPHATAS E [ENZYMATIC ACTIVITY/V OLUME] IN SERUM OR PLASMA 108 U/L 40 - 150 05/28 Specimen Type: PLASMA No comment entered. Ordering Provider: GERMANIA HANSON Report Released Date/Time: May 28, 2022 03:06 PM Reporting Lab: [facility] [phone] Performing Lab: [facility] [phone] [facility] COMPREHE NSIVE METABOLI C PANEL+MG ALANINE AMINOTRANS FERASE [ENZYMATIC ACTIVITY/V OLUME] IN SERUM OR PLASMA 27 U/L <55 - 55 05/28 Specimen Type: PLASMA No comment entered. Ordering Provider: GERMANIA HANSON Report Released Date/Time: May 28, 2022 03:06 PM Reporting Lab: [facility] [phone] Performing Lab: [facility] [phone] [facility] COMPREHE NSIVE METABOLI C PANEL+MG ASPARTATE AMINOTRANS FERASE [ENZYMATIC ACTIVITY/V OLUME] IN SERUM OR PLASMA 21 U/L <34 - 34 05/28 Specimen Type: PLASMA No comment entered. Ordering Provider: GERMANIA HANSON Report Released Date/Time: May 28, 2022 03:06 PM Reporting Lab: [facility] [id number] Performing Lab: [facility] [id number] [facility] COMPREHE NSIVE METABOLI C PANEL+MG GLOMERULAR FILTRATION RATE/1.73 SQ M.PREDICTE D [VOLUME RATE/AREA] IN SERUM, PLASMA OR BLOOD BY CREATININE -BASED FORMULA (CKD-EPI) >90 60 05/28 Specimen Type: PLASMA No comment entered. Ordering Provider: GERMANIA HANSON Report Released Date/Time: May 28, 2022 03:06 PM Reporting Lab: [facility] [id number] Performing Lab: [facility] [id number] [facility] Encounters Combined list of: 1) Encounters from Department of Veterans Affairs facilities going back up to thelast 18 months. 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 Location Location Details Encounter Type Encounter Number Reason For Visit Attending Provider ADM Date DC Date Status Disposition Source [facility] PRO PHONE CALL 5-10 MIN [id number] Diagnos is: ICD-10- CM Z73.6 Limitat ion of activit ies due to disabil ity<br/ > AVE HALEY 12/13 [facility] Outpatient Encounter [id number] 01/08 [facility] IS [facility] PRO PHONE CALL 21-30 MIN [id number] Diagnos is: ICD-10- CM G82.20 Paraple mary kay, unspeci fied
Hever CASTRO 01/08 [facility] Outpatient Encounter [id number] 01/09 [facility] DIABETIC MANAGEMENT PROGRAM, [id number] Diagnos is: ICD-10- CM G82.20 Paraple mary kay, unspeci fied
SERJIOTIGIST Dubon 01[facility] Outpatient Encounter [id number] 02/05 [facility] MTMS BY PHARM ADDL 15 MIN [id number] Diagnos is: ICD-10- CM G82.20 Paraple mary kay, unspeci fied
MANPREET BARRETT 02/05 [facility] OT EVAL LOW COMPLEX 30 MIN [id number] Diagnos is: ICD-10- CM Z73.6 Limitat ion of activit ies due to disabil ity<br/ > Bryn PARDO 02/05 [facility] OFF/OP EST MAY X REQ PHY/QHP [id number] Diagnos is: ICD-10- CM G82.20 Paraple mary kay, unspeci fied
JOSUÉ ZAMORA 02/05 [facility] PSYCH DIAGNOSTIC EVALUATION [id number] Diagnos is: ICD-10- CM F32.A Depress ion, unspeci fied
BINU GAMEZ 02/05 [facility] OFFICE O/P EST MOD 30-39 MIN [id number] Diagnos is: ICD-10- CM G82.20 Paraple mary kay, unspeci fied
ME LOGAN BOWMAN 02/05 [facility] PSYCH DIAGNOSTIC EVALUATION [id number] Diagnos is: ICD-10- CM G82.20 Paraple mary kay, unspeci fied
JENNIFFERMAHI DESIRE Ruben 02/05 [facility] [place] [id number] Diagnos is: ICD-10- CM Z71.3 Dietary teen counselor ing and surveil payal<b r/> Katia ARCHER 02/05 [facility] [place] [id number] Diagnos is: ICD-10- CM Z43.3 Encount er for attenti on to colosto my
VIOLA YOON 02/08 [facility] OFFICE O/P EST HI 40-54 MIN [id number] Diagnos is: ICD-10- CM G82.20 Paraple mary kay, unspeci fied
ME LOGAN BOWMAN 02/13 [facility] WHEELCHAIR MNGMENT TRAINING [id number] Diagnos is: ICD-10- CM Z73.6 Limitat ion of activit ies due to disabil ity<br/ > BOUSLOG,RY AN P 02/13 [facility] Outpatient Encounter [id number] 02/19 [facility] HC PRO PHONE CALL 11-20 MIN [id number] Diagnos is: ICD-10- CM Z73.6 Limitat ion of activit ies due to disabil ity<br/ > BOUSLOG,RY AN P 04/23 [facility] Outpatient Encounter [id number] 04/24 [facility] Outpatient Encounter [id number] 05/24 [facility] OFF/OP EST MAY X REQ PHY/QHP [id number] Diagnos is: ICD-10- CM G82.20 Paraple mary kay, unspeci fied
VIOLA YOON NDA 05/28 [facility] WHEELCHAIR MNGMENT TRAINING [id number] Diagnos is: ICD-10- CM Z73.6 Limitat ion of activit ies due to disabil ity<br/ > BOUSLOG,RY AN P 06/10 [facility] Outpatient Encounter [id number] 10/28 [facility] Outpatient Encounter [id number] 11/20 [facility] Social History Combined list of available smoking, tobacco, and other social history from 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 Social History Type Response Date Comment Sour e Tobacco smoking status [facility] [place] NEVER USED 05/28/20 22 [facility] This section is an empty social history section. DoD Advance Directives List of completed, amended, or rescinded Advance Directives on record at Department of 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 An actual copy of the Directive is not included. Date Advance Directive Provider Source 02/05/2023 ADVANCE DIRECTIVE DISCUSSION GUSTAVO ABAD [facility]
--- OUTSIDE RECORDS SUMMARY | 2024-04-13 12:39 | XMS_ITS ---
Author Organization [facility] Address [address] [address] Care Team Providers Care Production Broaching Machine Operator Name Role Phone Franklin Squires [...] treatments are documented for this patient in [facility]. Treatments may have been administered in another system. Resolved Problems Problem Noted Date Diagnosed Date Resolved Date Gait abnormality 01/17/2012 02/09/2015 Back pain 01/17/2012 02/09/2015 Paraplegia 04/04/2011 02/09/2015 Osteoporosis 03/06/2011 02/09/2015 Urinary tract infection 12/24/200603/11
--- OUTSIDE RECORDS SUMMARY | 2024-04-13 12:39 | XMS_ITS | Encounter Summary ---
Author Organization [facility] Address [address], [place] [address] Care Team Providers Care Sheet Metal Assembler Name Role Phone Franklin Squires MD Primary Care Provider [phone] Encounter Details Date Type Department Care Team [...] on filedocumented in this encounter Care Teams Sheet Metal Assembler Relationship Specialty Start Date End Date Franklin Squires MD [address] [facility] [place] [address] PCP - General Family Practice 03/08/16 documented as of this encounter
--- OUTSIDE RECORDS SUMMARY | 2024-04-13 12:39 | XMS_ITS | Encounter Summary ---
Author Organization [facility] Address [address], [place] [address] Care Team Providers Care Systems Security Analyst Name Role Phone Franklin Squires MD Primary Care Provider [phone] Encounter Details Date Type Department Care Team (Latest Contact Info) Description 06/04/2014 [facility] 401 Interventional Pain Management [address] [facility] [place] [address] Zelalem Cohen, DO [address] [place] [address] MEDICAID PT INFORMATION [employer]MPI RECOV[employer] Social History [...] filedocumented in this encounter Care Teams Systems Security Analyst Relationship Specialty Start Date End Date Franklin Squires MD [address] [facility] [place] [address] PCP - General Family Practice 03/08/16 documented as of this encounter
--- OUTSIDE RECORDS SUMMARY | 2024-04-13 12:39 | XMS_ITS | Encounter Summary ---
Author Organization [facility] Address [address] [address] Care Team Providers Care Core Winder Name Role Phone Franklin Squires MD Primary [...] on filedocumented in this encounter Care Teams Core Winder Relationship Specialty Start Date End Date Franklin Squires MD [address] [facility] [place] [address] PCP - General Family Practice 03/08/16 documented as of this encounter
--- OUTSIDE RECORDS SUMMARY | 2024-04-13 12:39 | XMS_ITS | Encounter Summary ---
Author Organization [facility] Address [address], [place] [address] Care Team Providers Care Activities Aide Name Role Phone Franklin Squires MD Primary Care Provider [phone] Encounter Details Date Type Department Care Team [...] on filedocumented in this encounter Care Teams Activities Aide Relationship Specialty Start Date End Date Franklin Squires MD [address] [facility] [place] [address] PCP - General Family Practice 03/08/16 documented as of this encounter
--- OUTSIDE RECORDS SUMMARY | 2024-04-13 12:39 | XMS_ITS | Encounter Summary ---
[facility] Organization [facility] Address [address] [address] Care Team Providers Care Sql Report Analyst Name Role Phone Franklin Squires MD Primary Care Provider [phone] Encounter Details Date Type Department Care Team (Late st Contact Info) Description 06/11/2014 [facility] 401 Physical Medicine 401 [facility] [place] [address] May Randle MD [address] [place] [address] [facility] Social History Tobacco Use Types [...] filedocumented in this encounter Care Teams Sql Report Analyst Relationship Specialty Start Date End Date Franklin Squires MD [address] [facility] [place] [address] PCP - General Family Practice 03/08/16 documented as of this encounter
--- OUTSIDE RECORDS SUMMARY | 2024-04-13 12:39 | XMS_ITS | Encounter Summary ---
Author Organization [facility] Address [address] [address] Care Team Providers Care Database Security Administrator Name Role Phone Franklin Squires MD Primary Care Provider [phone] Encounter Details Date Type Department Care Team (Latest Contact Info) Description 12/11/2017 Correspondence Physiatry/Physical Medicine at [facility] [address] [facility] [place] [address] May Randle MD [address] [place] [address] [employer] Social History Tobacco Use [...] on filedocumented in this encounter Care Teams Database Security Administrator Relationship Specialty Start Date End Date Franklin Squires MD [address] [place] [address] [place] [address] PCP - General Family Practice 03/08/16 documented as of this encounter
--- OUTSIDE RECORDS SUMMARY | 2024-04-13 12:39 | XMS_ITS | Clinical Summary ---
Author Organization [employer] [facility] [employer] [facility] Address [place], [place] [address] Care Team Providers Care Data Support Analyst Name Role Phone Zelalem Cohen MD Unavailable [phone] May Randle MD Unavailable [phone] Franklin Squires MD Primary Care Provider Fred CraftW Unavailable [phone] Diane Charles MD Unavailable [phone] Julia Wrae RN Unavailable [phone] Allergies Active Allergy Reactions Criticality Noted Date [...] bedIndications:Non-heal ing surgical wound, subsequent encounter Drive [employer] 8 inch low loss mattress and 1/2 rails. Semi-electric bed. Length of need 6 weeks. Bed lock assembler:no 1 unit 018 Active acetaminophen (TYLENOL EXTRA STRGTH) 500 mg tabletIndications:fever ,pain Take 1,000 mg by mouth three times daily. Max acetaminophen dose: 4000mg in 24 hrs. Active sodium chloride (AYR SALINE NASL) Inhale 2-3 Sprays in the nostril(s) once daily if needed. 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 [employer] [place] Click Ostomy Barrier with belt tabs 60mm, Cut-to-Fit 01/16 - 2 11/18. Item #[id number]. 1 Each 11 021 Active baclofen (LIORESAL) 20 mg tabletIndications:Benig n [...] AT BEDTIME 120 Tablet 2 024 Active Catheter (De La Cruz Catheter) 24 Fr miscIndications:Suprapu bic catheter (HC) As directed. 3 Each 3 024 Active furosemide (LASIX) 40 mg tabletIndications:Bilat eral lower extremity edema TAKE ONE TABLET BY MOUTH TWICE A DAY 180 Tablet 1 Active Additional Information Patient taking differently:40 mg OralQ AM, Reported on 04/03/2024 L.acidoph/B.animalis/B. longum (FLORAJEN DIGESTION ORAL) Take 1 Capsule by mouth once daily. Active oxyCODONE 10 mg tabletIndications:Chron ic pain syndrome Take 1 Tablet (10 mg) by mouth every 6 hours. 120 Tablet Active furosemide (LASIX) 40 mg tabletIndications:Bilat eral [...] EVERY 6 HOURS 120 Tablet 024 2023 Discontinued(R eorder (E-cancel not sent)) Catheter (De La Cruz Catheter) 24 Fr miscIndications:Suprapu bic catheter (HC) As directed. 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 06/20/2023 01/08/2024 Cellulitis of scrotum 05/08/20232022 UTI (urinary tract infection) 05/08/2023 06/20/2023 Quadriplegia, unspecified 10/23/2022 Continuous opioid dependence 07/01/2022 08/20/2022 Urinary tract infection asso ciated with indwelling urethral catheter 10/05/2021 06/20/2023 Hypertensive urgency 10/04/2021 023 Type 2 diabetes mellitus, wi [facility] long-term current use of insulin 01/06/2021 02/14/2024 [...] delivery 04/16/2007 10/01/2007 Overview: S/P IVC 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 Ryanion, Quadtro Select HI PRO 20x20 or 11x11 CELL) 04/07/2024 Anticoagulation (warfarin) [address] [address] 1, [facility] Anticoagulation (acelis) 04/07/[address] [address] Franklin Squires MD Form (Physician Orders) 04/03/2024 2:30 PM CDT Office Visit [address] [place] [address] Franklin Squires MD Follow Up (6 week follow up) 04/03/2024 Travel 04/02/[address] [place] [address] Franklin Squires MD Refill Request (Oxycodone) 03/28/[address] [place] [address] Franklin Squires MD Refill Request (Furosemide) 03/20/2024 4:32 PM CDT - 03/20/2024 8:34 PM CDT Emergency [facility] [address] [facility] [place] [address] Quan Corbett PA Suprapubic catheter dysfunction, initial encounter (HC) (Primary Dx) Discharge Disposition: Home Self Care 03/20/2024 Travel 03/20/2024 Telephone [facility] [address] [place] [address] Franklin Squires MD other (FYI / UPDATE ) 03/19/2024 Anticoagulation (warfarin) [address] [address] 1, [facility] Anticoagulation (acelis) 03/13/2024 2:10 PM CDT Orders Only [facility] [address] [place] [address] Lab, [facility] Lab 03/13/2024 Travel 03/10/2024 Telephone [facility] [address] [place] [address] Franklin Squires MD Form (Home Health Certification and Plan of Care. ) 03/10/2024 Telephone [facility] [address] [place] [address] Franklin Squires MD Form (60 day summary report. 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 Medication order: Lorazapam 0.5 mg; oral tablet. Amoxicillin- clavulanate 875mg) 02/24/[address] [address] Franklin Squires MD Refill Request (LORazepam (ATIVAN) 0.5 mg tab) 02/20/2024 1:30 PM CDT Office Visit [address] [address] Franklin Squires MD Hospital F/U (02/15/24) 02/20/2024 Anticoagulation (warfarin) [address] [address] 1, [facility] Anticoagulation 02/20/2024 Travel 02/18/2024 Anticoagulation (warfarin) [address] [address] 1, [facility] Anticoagulation (acelis) 02/18/2024 Patient Outreach [address] [address] Archana Stein, VALERIE Primary RN Care Management (Hospital DC:02/17/24/LACE:47/Pne billkotlik); Hospital F/U 02/17/[address] [address] Franklin Squires MD Form (Service Order: Hold. Acute care hospitalization for pneumonia. Hold [facility] pending discharge plans. Effective: 02/15/2024) 02/15/2024 4:34 PM CDT - 02/17/2024 2:45 PM CDT Hospital Encounter [facility] [address] [place] [address] [facility] Internal FogGilson mcmahon MD Khakbaznejad, Alireza, MD Pneumonia due to infectious organism, unspecified laterality, unspecified part of lung (Primary Dx); History of DVT (deep vein thrombosis); Pressure injury of right buttock, stage 1 Discharge Disposition: Home Self Care 02/15/2024 Travel 02/15/2024 Refill [facility] [address] [place] [address] , [facility] Refill Request (Warfarin) 02/14/2024 3:10 PM CDT - 02/15/2024 2:45 PM CDT Hospital Encounter [facility] [address] [place] [address] Quan Corbett, ROXY Ramírez, MD Terence Bruno, Todd Glass, DO Cintron, George Izaguirre, DIE HOLDER Nancy, Malini Ferro, DIE HOLDER Leukocytosis, unspecified type (Primary Dx); Fever, unspecified fever cause; Chills; Tachycardia; Pulmonary infiltrate; Elevated C-reactive protein (CRP); Pressure injury of deep tissue of left buttock Discharge Disposition: Critical Access Hospital 02/14/2024 Travel 02/05/2024 Anticoagulation (warfarin) [facility] [address] [place] [address] , [facility] Anticoagulation (Acelis) 01/28/2024 Refill [facility] [address] [place] [address] Franklin Squires MD Refill Request (Oxycodone) 01/22/2024 [address]phone [address] [place] [address] Franklin Squires MD Form (Standard Written Order: Rehab Accessories./Cushion, Quadtro Select HI PRO 20x20 or 11x11 Cell) 01/22/[address] [address] Franklin Squires MD Form (Standard Written Order: Repairs/Battery, M34 Gel 60AH C300 60 AMP Hours use 8AMP [employer]) 01/22/2024 Anticoagulation (warfarin) [address] [address] , [facility] Anticoagulation (Acelis) 01/16/[address] [address] Franklin Squires MD Refill Request (Bupropion) from Last 3 Months Immunizations Name Administration Dates Next Due COVID-19 vaccine (ChatID-Bio NTech 30mcg/0.3mL) 12YO+ BIVALENT PF, MDV 10/22/2022 COVID-19 vaccine (ChatID-Bio NTech 30mcg/0.3mL) PF, MDV 01/25/2021,01/02/2021 Influenza A [...] Sign Reading Time Taken Comments Blood Pressure 102/68 04/03/2024 2:40 PM CDT Pulse 90 04/03/2024 2:40 PM CDT Temperature 36.6 ??C (97.8 ??F) 03/20/2024 4:50 PM CD T Respiratory Rate 20 03/20/2024 4:50 PM CDT Oxygen Saturation 97% 03/20/2024 4:50 PM CDT Inhaled Oxygen Concentration - - Weight 95.9 kg (211 lb 8 oz) 03/20/2024 4:50 PM CDT Height 175.3 cm (5' 9) 03/20/2024 4:50 PM CDT Body Mass Index 31.23 03/20/2024 4:50 PM CDT Plan of Treatment Health Maintenance [...] Associated Diagnosis Comments HOME MONITOR AC Routine 04/07/2024 12:00 AM CDT BLADDER CATHETERIZATION Routine 03/20/2024 7:52 PM CDT [...] MONITOR AC Routine 01/22/2024 12:00 AM CDT from Last 3 Months Results * HOME MONITOR AC (04/07/2024 12:00 AM CDT) Only the most recent of6 resultswithin the time period is included. PATIENT REPORTED HOME INR 2.3 2.00 - 3.00 ALERE HOME MONITORING 04/07/2024 Franklin Squires MD OTHER [facility] MONIT[facility] [address] [place] [address] * BLADDER CATHETERIZATION (03/20/2024 7:52 PM CDT) [...] ?Risks discussed: ??Pain, incomplete procedure and infection Williams protocol: ??Procedure explained and questions answered to [...] CDT) CULTURE RESULT(A) 03/28/2024 11:28 AM CDT [facility]AL LAB[facility] CULTURE 2+ Klebsiella pneumoniae 03/28/2024 11:28 AM CDT [facility] CULTURE 2+ Pseudomonas aeruginosa 03/28/2024 11:28 AM CDT [facility] CULTURE 2+ Staphylococcus aureus 03/28/2024 11:28 AM CDT [facility] Comment:Isolate is MRSA (Met hicillin-resistant Staph aureus). CULTURE 2+ Mixed brigette present 03/28/2024 11:28 AM CDT [facility] GRAM STAIN No PMNs 03/28/2024 11:28 AM CDT [facility] GRAM STAIN No Epithelial cells 03/28/2024 11:28 AM CDT [facility] GRAM STAIN No RBCs 03/28/2024 11:28 AM CDT [facility] GRAM STAIN 4+ Gram Negative Bacilli 03/28/2024 11:28 AM CDT [facility] GRAM STAIN 2+ Gram Positive Cocci 03/28/2024 11:28 AM CDT [facility] Other SPECIMEN FROM PENIS / Unknown Non-Blood / Unknown 03/20/2024 5:01 PM CDT 03/20/2024 5:05 PM CDT [facility] LABORATORY - 03/28/2024 11:28 AM CDT Mixed [...] TRIMETHOPRIM/SULF <=0.5/9.5: S Quan RAMSEY MICROBIOLOG Y [facility] LAB[facility] [address] [place] [address], [place] * (ABNORMAL) CBC WITH AUTO DIFFERENTIAL (03/20/2024 4:58 PM CDT) Only the most recent of3 resultswithin the time period is included. Pathologist [facility] WHITE BLOOD COUNT 10.9 4.5 - 11.0 thou/cu mm 03/20/2024 5:06 PM [facility] RED BLOOD COUNT 4.92 4.30 - 5.90 mil/cu mm 03/20/2024 5:06 PM [facility] HEMOGLOBIN 12.7(L) 13.5 - 17.5 g/dL 03/20/2024 5:06 PM [facility] HEMATOCRIT 40.0 37.0 - 53.0 % 03/20/2024 5:06 PM [facility] MCV 81 80 - 100 fL 03/20/2024 5:06 PM [facility] MCH 25.8(L) 26.0 - 34.0 pg 03/20/2024 5:06 PM [facility] MCHC 31.8(L) 32.0 - 36.0 g/dL 03/20/2024 5:06 PM [facility] RDW 18.1(H) 11.5 - 15.5 % 03/20/2024 5:06 PM [facility] PLATELET COUNT 263 140 - 440 thou/cu mm 03/20/2024 5:06 PM [facility] MPV 9.4 6.5 - 11.0 fL 03/20/2024 5:06 PM [facility] % NEUT 68.4 % 03/20/2024 5:06 PM [facility] % LYMPH 20.1 % 03/20/2024 5:06 PM [facility] % MONO 8.4 % 03/20/2024 5:06 PM T [facility] % EOS 2.8 % 03/20/2024 5:06 PM T [facility] % BASO 0.3 % 03/20/2024 5:06 PM T [facility] ABSOLUTE NEUTROPHILS 7.4(H) 1.7 - 7.0 thou/cu mm 03/20/2024 5:06 PM T [facility] ABSOLUTE LYMPHOCYTES 2.2 0.9 - 2.9 thou/cu mm 03/20/2024 5:06 PM T [facility] ABSOLUTE MONOCYTES 0.9(H) <0.9 thou/cu mm 03/20/2024 5:06 PM T [facility] ABSOLUTE EOSINOPHILS 0.3 <0.5 thou/cu mm 03/20/2024 5:06 PM T [facility] ABSOLUTE BASOPHILS 0.0 <0.3 thou/cu mm 03/20/2024 5:06 PM T [facility] Blood BLOOD SPECIMEN / Unknown Butterfly / Unknown 03/20/2024 4:58 PM CDT 03/20/2024 5:02 PM CDT Quan RAMSEY HEMATOLOGY [facility] [address] [place] [address] * LACTATE VENOUS (03/20/2024 4:58 PM CDT) Only the most recent of2 resultswithin the time period is included. LACTATE,VENOUS 1.3 0.5 - 2.0 mmol/L 03/20/2024 5:21 PM CDT [facility] Blood BLOOD SPECIMEN / Unknown Butterfly / Unknown 03/20/2024 4:58 PM CDT 03/20/2024 5:02 PM CDT Quan RAMSEY CHEMISTRY [facility] [address] [facility] [place] [address] * (ABNORMAL) BASIC METABOLIC PANEL (03/20/2024 4:58 PM CDT) SODIUM 139 136 - 145 mmol/L 03/20/2024 5:22 PM T [facility] POTASSIUM 4.5 3.5 - 5.1 mmol/L 03/20/2024 5:22 PM [facility] CHLORIDE 100 98 - 107 mmol/L 03/20/2024 5:22 PM [facility] CO2,TOTAL 29 22 - 29 mmol/L 03/20/2024 5:22 PM [facility] ANION GAP 10 5 - 18 03/20/2024 5:22 PM [facility] GLUCOSE 115(H) 70 - 99 mg/dL 03/20/2024 5:22 PM [facility] CALCIUM 9.4 8.8 - 10.2 mg/dL 03/20/2024 5:22 PM [facility] BUN 21 8 - 23 mg/dL 03/20/2024 5:22 PM [facility] CREATININE 0.63(L) 0.70 - 1.20 mg/dL 03/20/2024 5:22 PM [facility] BUN/CREAT RATIO 33(H) 10 - 20 5:22 PM [facility] eGFR >90 >90 mL/min/1.7 3m2 03/20/2024 5:22 PM [facility] Comment:As of 2022, eG FR [...] CDT Quan RAMSEY CHEMISTRY Performing Organization Address City/[facility]/ZIP Co de Phone Number [facility] [address] [place] [address] * (ABNORMAL) URINALYSIS MICROSCOPIC (03/13/2024 11:04 AM CDT) Only the most recent of2 resultswithin the time period is included. RBC 0-2 0-2, None Seen /HPF 03/13/2024 2:26 PM CDT [facility] WBC 6-10(A) 0-2, 3-5, None Seen /HPF 03/13/2024 2:26 PM CDT [facility] BACTERIA Few None Seen, Rare, Few Bacteria/ HPF 03/13/2024 2:26 PM CDT [facility] EPITHELIAL CELLS Few None Seen, Few Epi/HPF 03/13/2024 2:26 PM CDT [facility] WHITE CELL CLUMPS Present(A) (none) 03/13/2024 2:26 PM CDT [facility] Urine URINE SPECIMEN / Unknown Non-Blood / Unknown 03/13/2024 11:04 AM CDT 03/13/2024 1:37 PM CDT Franklin Squires MD URINE Performing Organization Address [facility] Co de Phone Number [facility] [address] [place] [address] * (ABNORMAL) URINE CULTURE (03/13/2024 11:04 AM CDT) Only the most recent of2 resultswithin the time period is included. CULTURE RESULT(A) 03/16/2024 9:13 AM CDT [facility] LAB[facility] CULTURE >100,000 CFU/mL Pseudomonas aeruginosa 03/16/2024 9:13 AM CDT [facility] LAB[facility] CULTURE 50,000-100,000 CFU/mL Staphylococcus aureus 03/16/2024 9:13 AM CDT [facility] LAB[facility] CULTURE 10,000-50,000 CFU/mL Enterobacter cloacae complex 03/16/2024 9:13 AM CDT [facility] Comment: May develop resistance [...] AM CDT 03/13/2024 1:37 PM CDT Narrative [facility] - 03/16/2024 9:13 AM CDT May represent colonization. No further workup pending. Franklin Squires MD MICROBIOLOGY [facility] [address] [place] [address], [place] * (ABNORMAL) UA W/ SEDIMENT EXAM REFLEXED PER CRITERIA (03/13/2024 11:04 AM CDT) Only the most recent of2 resultswithin the time period is included. COLOR Yellow Yellow Color 03/13/2024 2:24 PM [facility] CLARITY Clear Clear Clarity 03/13/2024 2:24 PM [facility] SPECIFIC GRAVITY,URINE <=1.005(A) 1.010, 1.015, 1.020, 1.025 03/13/2024 2:24 PM [facility] PH,URINE 6.5 6.0, 7.0, 8.0, 5.5, 6.5, 7.5, 8.5 03/13/2024 2:24 PM [facility] UROBILINOGEN, QUALITATIVE Normal Normal EU/dl 03/13/2024 2:24 PM [facility] PROTEIN, URINE Negative Negative mg/dL 03/13/2024 2:24 PM [facility] GLUCOSE, URINE Negative Negative mg/dL 03/13/2024 2:24 PM [facility] KETONES,URINE Negative Negative mg/dL 03/13/2024 2:24 PM [facility] BILIRUBIN,URI NE Negative Negative 03/13/2024 2:24 PM CDT [facility] OCCULT BLOOD,URINE Moderate(A) Negative 03/13/2024 2:24 PM CDT [facility] NITRITE Negative Negative 03/13/2024 2:24 PM CDT [facility] LEUKOCYTE ESTERASE Moderate(A) Negative 03/13/2024 2:24 PM CDT [facility] Urine URINE SPECIMEN / Unknown Non-Blood / Unknown 03/13/2024 11:04 AM CDT 03/13/2024 1:37 PM CDT Franklin Squires MD URINE Performing Organization Address City/[facility]/ZIP Co de Phone Number [facility] [address] [place] [address] * POTASSIUM (02/20/2024 2:15 PM CDT) Only the most recent of2 resultswithin the time period is included. POTASSIUM 4.3 3.5 - 5.1 mmol/L 02/20/2024 4:02 PM CDT [facility] Blood BLOOD SPECIMEN / Unknown Venipuncture / Unknown 02/20/2024 2:15 PM CDT 02/20/2024 3:06 PM CDT Franklin Squires MD CHEMISTRY Performing Organization Address City/[facility]/ZIP Co de Phone Number [facility] [address] [place] [address] * (ABNORMAL) PROTIME-INR (02/20/2024 2:15 PM CDT) Only the most recent of5 resultswithin the time period is included. INR 1.9(H) <1.3 02/20/2024 2:38 PM CDT [facility] PROTIME 21.2(H) 10.3 - 12.3 sec 02/20/2024 2:38 PM CDT [facility] Blood BLOOD SPECIMEN / Unknown Venipuncture / Unknown 02/20/2024 2:15 PM CDT 02/20/2024 2:15 PM CDT Narrative [facility] - 02/20/2024 2:38 PM [...] is on UFH. Franklin Squires MD HEMATOLOGY [facility] [address] [place] [address] * SODIUM (02/17/2024 5:11 AM CDT) SODIUM 140 136 - 145 mmol/L 02/17/2024 6:14 AM CDT [facility] Blood BLOOD SPECIMEN / Unknown Butterfly / Unknown 02/17/2024 5:11 AM CDT 02/17/2024 5:44 AM CDT John Ludwig MD CHEMISTRY [facility] [place]NAL ZIP [address] [address] [place] [address] * (ABNORMAL) CREATININE (02/17/2024 5:11 AM CDT) eGFR >90 >90 mL/min/1.7 3m2 02/17/2024 6:14 AM CDT [facility] Comment:As of 2022, eG FR is calculated by the CKD-EPI creatinine equation without race adjustment. ??eGFR can be influenced by muscle mass, exercise, and diet. ??The reported eGFR is an estimation only and is only applicable if the renal function is stable. CREATININE 0.56(L) 0.70 - 1.20 mg/dL 02/17/2024 6:14 AM CDT [facility] Blood BLOOD SPECIMEN / Unknown Butterfly / Unknown 02/17/2024 5:11 AM CDT 02/17/2024 5:44 AM CDT John Ludwig MD CHEMISTRY [facility] INTERNAL ZIP [address] [address] [place] [address] * MAGNESIUM (02/17/2024 5:11 AM CDT) MAGNESIUM 2.0 1.6 - 2.4 mg/dL 02/17/2024 7:44 AM CDT [facility] Blood BLOOD SPECIMEN / Unknown Butterfly / Unknown 02/17/2024 5:11 AM CDT 02/17/2024 5:44 AM CDT John Ludwig MD CHEMISTRY [facility] [place]NAL ZIP [address] [address] [place] [address] * (ABNORMAL) GLUCOSE METER (02/16/2024 11:41 AM CDT) Only the most recent of6 resultswithin the time period is included. GLUCOSE METER 129(H) 65 - 100 mg/dL 02/16/2024 12:02 PM CDT [facility] Blood BLOOD SPECIMEN / Unknown 02/16/2024 11:41 AM CDT 02/16/2024 12:02 PM CDT John Ludwig MD CHEMISTRY [facility] INTERNAL ZIP [address] [place] [address] * LEGIONELLA AND PNEUMOCOCCAL URINE ANTIGEN (02/15/2024 10:25 AM CDT) STREP PNEUMO ANTIGEN Negative 02/15/2024 3:46 PM CDT [facility] Comment:Presumptive negative for pneumococcal pneumonia, suggesting no current or recent pneumococcal infection. Infection due to S. pneumoniae cannot be ruled out since the antigen present in the sample may be below the detection limit of the test. LEGIONELLA ANTIGEN Negative 02/15/2024 3:46 PM CDT [facility] Comment:Negative for L.pneum ophila serogroup [...] James Ramírez MD MICROBIOLOGY Performing Organization Address City/[facility]/ZIP Co de Phone Number [facility] [address] [place] [address], * (ABNORMAL) WHITE BLOOD COUNT (02/15/2024 5:54 AM CDT) Pathologist [facility] WHITE BLOOD COUNT 11.7(H) 4.5 - 11.0 thou/cu mm 02/15/2024 7:16 AM CDT [facility] Blood BLOOD SPECIMEN / Unknown Venipuncture / Unknown 02/15/2024 5:54 AM CDT 02/15/2024 7:09 AM CDT James Ramírez MD HEMATOLOGY [facility] [address] [place] [address] * CT ABDOMEN PELVIS WO (02/14/2024 8:12 [...] 6-15 ng/L ng/L 02/14/2024 8:12 PM CDT [facility] Blood BLOOD SPECIMEN / Unknown Venipuncture / Unknown 02/14/2024 7:49 PM CDT 02/14/2024 7:53 PM CDT Quan RAMSEY CHEMISTRY [facility] [address] [place] [id number] * (ABNORMAL) TROPONIN T (HS) ACUTE W/2HR REFLEX (02/14/2024 5:35 PM CDT) [facility] TROPONIN T HS 33(H) 6-15 ng/L ng/L 02/14/2024 6:42 PM CDT [facility] Blood BLOOD SPECIMEN / Unknown Venipuncture / Unknown 02/14/2024 5:35 PM CDT 02/14/2024 5:38 PM CDT [facility] - 02/14/2024 6:42 PM CDT [...] emergency department patient population. Quan RAMSEY CHEMISTRY [facility] [address] [place] [address] * XR CHEST 1 VIEW [...] CULTURE No Growth. 02/20/2024 5:27 AM CDT [facility] Blood BLOOD SPECIMEN / Unknown Butterfly / Unknown 02/14/2024 3:58 PM CDT 02/14/2024 4:02 PM CDT Quan RAMSEY MICROBIOLOG Y [facility] [address] [place] [address] * PROCALCITONIN (02/14/2024 3:50 PM CDT) PROCALCITONIN 0.10 ng/ml 02/14/2024 5:09 PM CDT [facility] Blood BLOOD SPECIMEN / Unknown Butterfly / Unknown 02/14/2024 3:50 PM CDT 02/14/2024 4:39 PM CDT Narrative [facility] - 02/14/2024 5:09 PM [...] Quan RAMSEY SEND OUTS Performing Organization Address [facility] Co de Phone Number [facility] [address] [place] [address] * (ABNORMAL) C-REACTIVE PROTEIN (02/14/2024 3:50 PM CDT) [facility] C-REACTIVE PROTEIN 10.9(H) <0.5 mg/dL 02/14/2024 5:09 PM CDT [facility] Blood BLOOD SPECIMEN / Unknown Butterfly / Unknown 02/14/2024 3:50 PM CDT 02/14/2024 4:02 PM CDT Quan RAMSEY CHEMISTRY Performing Organization Address [facility] Co de Phone Number [facility] [address] [place] [address] * (ABNORMAL) COMP METABOLIC PANEL (02/14/2024 3:50 PM CDT) Pathologist [facility] SODIUM 134(L) 136 - 145 mmol/L 02/14/2024 4:24 PM [facility] POTASSIUM 4.3 3.5 - 5.1 mmol/L 02/14/2024 4:24 PM [facility] CHLORIDE 96(L) 98 - 107 mmol/L 02/14/2024 4:24 PM [facility] CO2,TOTAL 25 22 - 29 mmol/L 02/14/2024 4:24 PM [facility] ANION GAP 13 5 - 18 02/14/2024 4:24 PM [facility] GLUCOSE 118(H) 70 - 99 mg/dL 02/14/2024 4:24 PM [facility] CALCIUM 9.4 8.8 - 10.2 mg/dL 02/14/2024 4:24 PM [facility] BUN 15 8 - 23 mg/dL 02/14/2024 4:24 PM [facility] CREATININE 0.60(L) 0.70 - 1.20 mg/dL 02/14/2024 4:24 PM [facility] BUN/CREAT RATIO 25(H) 10 - 20 4:24 PM [facility] eGFR >90 >90 mL/min/1.7 3m2 02/14/2024 4:24 PM [facility] Comment:As of 2022, eG FR is calculated by the CKD-EPI creatinine equation without race adjustment. ??eGFR can be influenced by muscle mass, exercise, and diet. ??The reported eGFR is an estimation only and is only applicable if the renal function is stable. ALBUMIN 4.1 4.0 - 4.9 g/dL 02/14/2024 4:24 PM [facility] PROTEIN,TOTAL 7.8 6.0 - 8.0 g/dL 02/14/2024 4:24 PM [facility] BILIRUBIN,TOTAL 0.6 0.0 - 1.2 mg/dL 02/14/2024 4:24 PM [facility] ALK PHOSPHATASE 117 40 - 129 IU/L 02/14/2024 4:24 PM [facility] ALT (SGPT) 47 10 - 50 IU/L 02/14/2024 4:24 PM CDT [facility] AST (SGOT) 42 10 - 50 IU/L 02/14/2024 4:24 PM CDT [facility] Blood BLOOD SPECIMEN / Unknown Butterfly / Unknown 02/14/2024 3:50 PM CDT 02/14/2024 4:02 PM CDT Quan RAMSEY CHEMISTRY 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, receiving hemodialysis, has chronic open wounds/skin damage, has long-term percutaneous indwelling medical devices Exclusions for nares collection (if <12 months since positive culture) include all of the previous exclusions plus patients on antibiotics 7 days prior to collection 03/13/2018 03/20/2024 Insurance Payer Benefit Plan / Group Subscriber ID Effective Dates Phone Address Type MEDICARE PART A - HB USE ONLY MEDICARE PART A HB ONLY [id number] 2002-Prese nt ATTN: CLAIMS [address] [place] [address] MEDICARE - PB USE ONLY MEDICARE PB ONLY [id number] 2004-Presen t ATTN: CLAIMS [address] [place] [address] FOR LIFE [id number] 2020-Presen t [address] [place] [address] MEDICARE PPS HC MEDICARE PPS [id number] 2002-Prese nt [address] [place] [address] MEDICARE PART B - HB USE ONLY MEDICARE PART B HB ONLY [id number] 2004-Presen t ATTN: CLAIMS [address] [place] [address] MEDICARE PART B - HB USE ONLY MEDICARE PART B HB ONLY [id number] 2004-Presen t ATTN: CLAIMS [address] [place] [address] FOR LIFE [id number] 2013-Presen t [address] [place] [address] Advance Directives Documents on File Type Date Recorded 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
--- OUTSIDE RECORDS SUMMARY | 2024-04-13 12:39 | XMS_ITS | Encounter Summary ---
Author Organization [facility] Address [address], [place] [address] Care Team Providers Care Wrapper Rewinder Name Role Phone Franklin Squires MD Primary Care Provider [phone] Encounter Details Date Type Department Care Team (Late st Contact Info) Description 08/20/2014 Outside Hospital External to [facility] HOS[facility]-ADMIT H/P Social History Tobacco [...] on filedocumented in this encounter Care Teams Wrapper Rewinder Relationship Specialty Start Date End Date [facility] [address] [facility] [address] PCP - General Family Practice 03/08/16 documented as of this encounter
--- OUTSIDE RECORDS SUMMARY | 2024-04-13 12:39 | XMS_ITS | Encounter Summary ---
[facility] Address [address], [place] [address] Care Team Providers Care Broker Agricultural Produce Name Role Phone Franklin Squires MD Primary Care Provider Encounter Details Date Type Department Care Team (Late st Contact Info) Description 07/28/2014 Outside Hospital External to External, Provider No address [address] ER VISIT/TRANSFER Social History Tobacco Use [...] on filedocumented in this encounter Care Teams Broker Agricultural Produce Relationship Specialty Start Date End Date Franklin Squires MD [address] [facility] [place] [address] PCP - General Family Practice 03/08/16 documented as of this encounter
--- OUTSIDE RECORDS SUMMARY | 2024-04-13 12:39 | XMS_ITS | Clinical Summary ---
Author Organization [facility] Address [address] [place] [address] Care Team Providers Care Sample Sawyer Name Role Phone Franklin Squires MD Primary Care Provider [phone] Source Comments You are receiving this document as you are listed as the primary care provider,follow-up provider, or the patient has been referred to you for consultation.This is in compliance with the Medicare andMedicaid EHR Incentive Program,which states Providers who transition their patient to another setting of careor provider of care or refers their patient to another provider of care shouldprovide summary care record for each transition of care or referral. [facility] Allergies Active Allergy Reactions Criticality Noted Date Comments Amoxicillin Rash 06/07/2015 Metolazone Itching 02/21/2017 Morphine And Codeine Other, see comments 2016 confusion Penicillins Rash [...] Comments Blood Pressure 120/63 01/18/2022 12:59 PM CORRAL BOSS Pulse 87 01/18/2022 12:59 PM CORRAL BOSS Temperature 36.3 ??C (97.4 ??F) 01/18/2022 12:59 [...] 2023 08/06/2021, 01/25/2021, 01/02/2021 Influenza (Season Ended) 2024 021, 08/19/2020, 08/20/2019, Additional history exists Pneumococcal [...] this topic Medical Devices Implanted Type Area Church Secretary Device Identifier Shelf Expiration Date Model / Serial / Lot [id number] 4ml Tisseel Explanted:([place] ntity not on file) BIOLOGIC N/A: NECK Lynne Fenwall 09/10/2011 [id number] / [id number] / [id number] Description:posterior Cath Intrathecal Indura - [id number] Implanted:Qty: 1 on 05/09/2010 at [facility] DEVICE Right: LUMBAR SPINE Search Initiatives 01/18/2012 8709 / N/A / [id number] Cath Intrathecal Indura - [id number] Implanted:Qty: 1 on 05/29/2010 at [facility] DEVICE Search Initiatives 8709 / / Scr Indira Conic 7.3x80 - [id number] Implanted:Qty: 1 on 03/13/2011 at [facility] DEVICE Right: FEMUR DISTAL [employer] 02.207.28 0 / NONE / NONE Plt Lcp Cndl Rt 4.5x170 6h - [id number] Implanted:Qty: 1 on 03/13/2011 at [facility] DEVICE Right: FEMUR DISTAL [employer] 222.656 / NONE / NONE Description:6 hole 170mm rig ht 4.5mm lcp condylar plate Scr Didier Ss Sftp 4.5x40 - [id number] Implanted:Qty: 1 on 03/13/2011 at [facility] DEVICE Left: FEMUR DISTAL [employer] 214.840 / NONE / NONE Scr Didier Ss Sftp 4.5x50 - [id number] Implanted:Qty: 1 on 03/13/2011 at [facility] DEVICE Left: FEMUR DISTAL [employer] 214.850 / NONE / NONE Scr Indira Lk 5.0x80 - [id number] Implanted:Qty: 2 on 03/13/2011 at [facility] DEVICE Left: FEMUR DISTAL [employer] 02.205.08 0 / NONE / NONE Scr Indira Lk 5.0x85 - [id number] Implanted:Qty: 2 on 03/13/2011 at [facility] DEVICE Left: FEMUR DISTAL [employer] 02.205.08 5 / NONE / NONE Scr Lk Sftp T25 5.0x50 - [id number] Implanted:Qty: 1 on 03/13/2011 at [facility] DEVICE Left: FEMUR DISTAL [employer] 212.219 / NONE / NONE Scr Lk Sftp T25 5.0x60 - [id number] Implanted:Qty: 1 on 03/13/2011 at [facility] DEVICE Left: FEMUR DISTAL [employer] 212.221 / NONE / NONE Scr Indira Conic 7.3x85 - [id number] Implanted:Qty: 1 on 03/13/2011 at [facility] DEVICE Left: FEMUR DISTAL [employer] 02.207.28 5 / NONE / NONE Plt Lcp Cndl Lt 4.5x170 6h - [id number] Implanted:Qty: 1 on 03/13/2011 at [facility] DEVICE Left: FEMUR DISTAL [employer] 222.657 / NONE / NONE Description:6 hole 170mmleng th left 4.5mm lcp condylar plate. Scr Didier Sftp 3.5x60 F-Thrd - [id number] Implanted:Qty: 1 on 03/13/2011 at [facility] DEVICE Left: TIBIA PROXIMAL [employer] [place] 204.860 / NONE / NONE Scr Star Lk Sftp 3.5x32 - [id number] Implanted:Qty: 1 on 03/13/2011 at [facility] DEVICE Left: TIBIA PROXIMAL [employer] 212.112 / NONE / NONE Scr Star Lk Sftp 3.5x55 - [id number] Implanted:Qty: 2 on 03/13/2011 at [facility] DEVICE Left: TIBIA PROXIMAL [employer] 212.123 / NONE / NONE Scr Star Lk Sftp 3.5x60 - [id number] Implanted:Qty: 2 on 03/13/2011 at [facility] DEVICE Left: TIBIA PROXIMAL [employer] 212.124 / NONE / NONE Plt Lcp M/Prox Lt 3.5x94 4h - [id number] Implanted:Qty: 1 on 03/13/2011 at [facility] DEVICE Left: TIBIA PROXIMAL [employer] 239.955 / NONE / NONE Scr Didier Ss Sftp 4.5x36 - [id number] Implanted:Qty: 1 on 03/13/2011 at [facility] DEVICE Right: FEMUR DISTAL [employer] 214.836 / NONE / NONE Scr Ddiier Ss Sftp 4.5x44 - [id number] Implanted:Qty: 1 on 03/13/2011 at [facility] DEVICE Right: FEMUR DISTAL [employer] 214.844 / NONE / NONE Scr Indira Lk 5.0x75 - [id number] Implanted:Qty: 1 on 03/13/2011 at [facility] DEVICE Right: FEMUR DISTAL [employer] 02.205.07 5 / NONE / NONE Scr Indira Lk 5.0x85 - [id number] Implanted:Qty: 2 on 03/13/2011 at [facility] DEVICE Right: FEMUR DISTAL [employer] 02.205.08 5 / NONE / NONE Scr Lk Sftp T25 5.0x44 - [id number] Implanted:Qty: 1 on 03/13/2011 at [facility] DEVICE Right: FEMUR DISTAL [employer] 212.216 / NONE / NONE Scr Lk Sftp T25 5.0x65 - [id number] Implanted:Qty: 1 on 03/13/2011 at [facility] DEVICE Right: FEMUR DISTAL [employer] 212.222 / NONE / NONE Plt Lp T Ti Str 4h - [id number] Implanted:Qty: 3 on 07/28/2014 by Cooper Shelley MD at [facility] DEVICE Right: SKULL [employer] [place] 421.504 / / Scr Matrix Sfdr 4mm - [id number] Implanted:Qty: 6 on 07/28/2014 by Cooper Shelley MD at [facility] DEVICE Right: SKULL [employer] [place] 04.503.10 4.01 / / Lead Linear 3-4 8 Contact 50cm - [id number] Implanted:Qty: 1 on 03/08/2016 by Zelalem Cohen DO at [facility] DEVICE N/A: OTHER-SEE DESCRIPTION [facility] 09/10/2017 [id number] 2500 / / [id number] Description:LUMBAR Lead Linear 3-4 8 Contact 50cm - [id number] Implanted:Qty: 1 on 03/08/2016 by Zelalem Cohen DO at [facility] DEVICE N/A: OTHER-SEE DESCRIPTION [employer] [facility] 09/10/2017 [id number] 2500 / / [id number] Description:LUMBAR Lead Linear 3-4 8 Contact 50cm - [id number] Implanted:Qty: 1 on 03/08/2016 by Zelalem Cohen DO at [facility] DEVICE N/A: OTHER-SEE DESCRIPTION [employer] [facility] 09/10/2017 [id number] 2500 / / [id number] Description:LUMBAR Lead Linear 3-4 8 Contact 50cm - [id number] Implanted:Qty: 1 on 03/08/2016 by Zelalem Cohen DO at [facility] DEVICE N/A: OTHER-SEE DESCRIPTION [employer] [facility] 09/10/2017 [id number] 2500 / / [id number] Description:LUMBAR Lead Linear 3-4 8 Contact 50cm - [id number] Implanted:Qty: 1 on 05/24/2016 by Zelalem Cohen DO at [facility] DEVICE N/A: SPINE LUMBAR POSTERIOR [employer] [facility] 01/31/2018 [id number] 2500 / [id number] / Lead Linear 3-4 8 Contact 50cm - [id number] Implanted:Qty: 1 on 05/24/2016 by Zelalem Cohen DO at [facility] DEVICE N/A: SPINE LUMBAR POSTERIOR [employer] [facility] 04/26/2018 [id number] 2500 / [id number] / Lead Linear 3-4 8 Contact 50cm - [id number] Implanted:Qty: 1 on 05/24/2016 by Zelalem Cohen DO at [facility] DEVICE N/A: SPINE LUMBAR POSTERIOR [employer] [facility] 04/26/2018 [id number] 2500 / [id number] / Lead Linear 3-4 8 Contact 50cm - [id number] Implanted:Qty: 1 on 05/24/2016 by Zelalem Cohen DO at [facility] DEVICE N/A: SPINE LUMBAR POSTERIOR [employer] [facility] 04/26/2018 [id number] 2500 / [id number] / Generator Pulse Spectra - [id number] Implanted:Qty: 1 on 05/24/2016 by Zelalem Cohen DO at [facility] DEVICE N/A: SPINE LUMBAR POSTERIOR [employer] [facility] 05/08/2018 [id number] / [id number] / [id number] Central Ran - [id number] Implanted:Qty: 1 on 05/24/2016 by Zelalem Cohen DO at [facility] DEVICE N/A: SPINE LUMBAR POSTERIOR [employer] [facility] 05/02/2018 [id number] 60 / / [id number] Central Ran - [id number] Implanted:Qty: 1 on 05/24/2016 by Zelalem Cohen DO at [facility] DEVICE N/A: SPINE LUMBAR POSTERIOR [employer] [facility] 02/28/2018 [id number] 60 / / [id number] Procedures Procedure Name Priority Date/Time Associated Diagnosis Comments CREATININE/GFR, WB POC Routine 01/06/2016 12:04 PM CORRAL BOSS Back pain, 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 HGB A1C Routine 07/29/2014 3:19 AM CDT from Last 3 Months or Most Recently Relevant to Health Maintenance Results * CREATININE/GFR, WB POC (01/06/2016 12:04 PM CORRAL BOSS) Creat Whole Blood 0.9 0.66 - 1.25 mg/dl [facility] GFR, Estimated >60 >60 ml/min/1.7 3m2 [facility] GFR, Est., If Black >60 >60 ml/min/1.7 3m2 [facility] 01/06/2016 12:0 4 PM CORRAL BOSS 01/06/2016 12:21 PM CORRAL BOSS Trae Blair MD LAB_[facility] [phone] * (ABNORMAL) HGB A1C (07/29/2014 3:19 AM CDT) Hgb A1c 6.4(H) 4.3 - 6.1 % [facility] Comment: The usual A1C goal for people with diabetes, age 18-75, is <8.0%. Physicians may recommend a higher or lower goal for specific individuals. 07/29/2014 3:19 AM CDT 07/29/2014 3:22 AM CDT [facility] - 07/29/2014 12:53 PM CDT Performed at [facility], [address] ??[address] [place] Wei PA-C LAB_[address] [address] from Last 3 Months or Most Recently [...] 5:44 PM 07/28/2014 6:50 PM Care Teams Sample Sawyer Relationship Specialty Start Date End Date Franklin Squires MD 100 [facility] [place] [address] PCP - General Family Practice 03/08/16
--- OUTSIDE RECORDS SUMMARY | 2024-04-13 12:39 | XMS_ITS | Encounter Summary ---
Author Organization [facility] Address [address] [address] Care Team Providers Care Biofuels Technology Development Manager Name Role Phone Franklin Squires MD Primary Care Provider [phone] Encounter Details Date Type Department Care Team (Late st Contact Info) Description 05/04/2014 [facility]ence [facility] 401 Physical Medicine 401 [facility] [place] [address] May Randle MD [address] [place] [address] LETTER OF MEDICAL NECESSITY FOR A WHEELCHAIR [...] on filedocumented in this encounter Care Teams Biofuels Technology Development Manager Relationship Specialty Start Date End Date Franklin Squires MD 100 [facility] [place] [address] PCP - General Family Practice 03/08/16 documented as of this encounter
--- OUTSIDE RECORDS SUMMARY | 2024-04-13 12:39 | XMS_ITS | Encounter Summary ---
Author Organization [facility] Address [address] [address] Care Team Providers Care Primary Care Pediatrician Name Role Phone Franklin Squires MD Primary Care Provider [phone] Encounter Details Date Type Department Care Team (Late st Contact Info) Description 08/22/2014 Outside Hospital External to [facility] HOSP-D/C SUMMARY Social History Tobacco [...] Squires MD 100 [facility] [place] [address] PCP - General Family Practice 03/08/16 documented as of this encounter
--- OUTSIDE RECORDS SUMMARY | 2024-04-13 12:39 | XMS_ITS | Encounter Summary ---
Author Organization [facility] Address [address] [address] Care Team Providers Care Glass Mechanic Name Role Phone Franklin Squires MD Primary Care Provider Encounter Details Date Type Department Care Team (Late st Contact Info) Description 01/06/2016 Correspondence [facility] Radiology [address] [address] Radiology, Provider MRI SAFETY SHEET AND COMPATIBILITY [...] filedocumented in this encounter Care Teams Glass Mechanic Relationship Specialty Start Date End Date Franklin Squires MD [address] [place], [place] [address] [address] PCP - General Family Practice 03/08/16 documented as of this encounter
--- OUTSIDE RECORDS SUMMARY | 2024-04-13 12:39 | XMS_ITS | Encounter Summary ---
Author Organization [facility] Address [address], [place] [address] Care Team Providers Care Silk Printer Name Role Phone Franklin Squires MD Primary Care Provider Encounter Details Date Type Department Care Team (Late st Contact Info) Description 08/20/2014 Outside Hospital External to [facility]-H/P Social History Tobacco Use [...] on filedocumented in this encounter Care Teams Silk Printer Relationship Specialty Start Date End Date Franklin Squires MD [address] [place], [place] [address] [address] PCP - General Family Practice 03/08/16 documented as of this encounter
--- OUTSIDE RECORDS SUMMARY | 2024-04-13 12:39 | XMS_ITS | Encounter Summary ---
Author Organization [facility] [address], [place] [address] Care Team Providers Care Ironworker Machine Operator Name Role Phone Franklin Squires MD Primary Care Provider Encounter Details Date Type Department Care Team (Late st Contact Info) Description 11/10/2014 Correspondence [facility] Physical Therapy [address] [place] [address] Trudi Raymundo, PT [address] [place] [address] LETTER OF MEDICAL NECESSITY Social History Tobacco [...] on filedocumented in this encounter Care Teams Ironworker Machine Operator Relationship Specialty Start Date End Date Franklin Squires MD 100 [facility] [address] [place] [address] PCP - General Family Practice 03/08/16 documented as of this encounter
--- OUTSIDE RECORDS SUMMARY | 2024-04-13 12:39 | XMS_ITS | Encounter Summary ---
Author Organization [facility] Address [address], [place] [address] Care Team Providers Care Storage Consultant Name Role Phone Franklin Squires MD Primary Care Provider Encounter Details Date Type Department Care Team (Late st Contact Info) Description 02/09/2016 Correspondence [facility] 401 NeuroSurgery 401 [facility] [place], [place] [id number] Jodi Aguila PA-C [address] [place] [address] PATIENT LIFT PRESCRIPTION Social History Tobacco Use [...] on filedocumented in this encounter Care Teams Storage Consultant Relationship Specialty Start Date End Date Franklin Squires MD 100 [facility] [place] [id number] PCP - General Family Practice 03/08/16 documented as of this encounter
--- OUTSIDE RECORDS SUMMARY | 2024-04-13 12:39 | XMS_ITS | Encounter Summary ---
Author Organization [facility] [address], [place] [address] Care Team Providers Care Shoder Filler Name Role Phone Franklin Squires MD Primary Care Provider [phone] Encounter Details Date Type Department Care Team (Late st Contact Info) Description 07/08/2015 Correspondence [facility] Physical Therapy [address] [place] [address] Trudi Raymundo, PT [address] [place] [address] ADDENDUM FOR LETTER OF MEDICAL NECESSITY Social [...] on filedocumented in this encounter Care Teams Shoder Filler Relationship Specialty Start Date End Date Franklin Squires MD 100 [facility] [place] [address] PCP - General Family Practice 03/08/16 documented as of this encounter
--- OUTSIDE RECORDS SUMMARY | 2024-04-13 12:39 | XMS_ITS | Encounter Summary ---
Author Organization [facility] Address [address] [address] Care Team Providers Care Special Education Preschool Teacher Name Role Phone Franklin Squires MD Primary Care Provider Encounter Details Date Type Department Care Team (Late st Contact Info) Description 06/07/2015 Correspondence [facility] Radiology [address] [place] [address] Radiology, Provider MRI SAFETY SHEET AND COMPATIBILITY [...] in this encounter Care Teams Special Education Preschool Teacher Relationship Specialty Start Date End Date Franklin Squires MD [address] [place], [place] [address] [address] PCP - General Family Practice 03/08/16 documented as of this encounter
--- OUTSIDE RECORDS SUMMARY | 2024-04-13 12:39 | XMS_ITS | Encounter Summary ---
Author Organization [facility] Address [address], [place] [address] Care Team Providers Care Rodent Exterminator Name Role Phone Franklin Squires MD Primary Care Provider Encounter Details Date Type Department Care Team (Late st Contact Info) Description 09/07/2014 Correspondence [facility] Radiology [address] [place] [address] Radiology, Provider MRI SAFETY SHEET AND COMPATIBILITY [...] on filedocumented in this encounter Care Teams Rodent Exterminator Relationship Specialty Start Date End Date Franklin Squires MD [address] [place], [place] [address] [address] PCP - General Family Practice 03/08/16 documented as of this encounter
--- OUTSIDE RECORDS SUMMARY | 2024-04-13 12:39 | XMS_ITS | Encounter Summary ---
[facility] Address [address], [place] [address] Care Team Providers Care Vest Finisher Name Role Phone Franklin Squires MD Primary Care Provider Encounter Details Date Type Department Care Team (Late st Contact Info) Description 11/23/2015 Correspondence External to External, [place] [address] LETTER [facility] Social History Tobacco Use Types Packs/Day [...] on filedocumented in this encounter Care Teams Vest Finisher Relationship Specialty Start Date End Date Franklin Squires MD [address] [place] [address] [place] [address] PCP - General Family Practice 03/08/16 documented as of this encounter
--- OUTSIDE RECORDS SUMMARY | 2024-04-13 12:39 | XMS_ITS | Encounter Summary ---
Author Organization [facility] Address [address], [place] [address] Care Team Providers Care Assembler Movement Name Role Phone Franklin Squires MD Primary Care Provider [phone] Encounter Details Date Type Department Care Team (Late st Contact Info) Description 12/16/2014 Correspondence External to External, [place] [address] MEDICARE PLAN OF CARE RECERT Social History [...] filedocumented in this encounter Care Teams Assembler Movement Relationship Specialty Start Date End Date Franklin Squires MD [address] [place] [address] [facility] [place] [address] PCP - General Family Practice 03/08/16 documented as of this encounter
--- OUTSIDE RECORDS SUMMARY | 2024-04-13 12:39 | XMS_ITS | Encounter Summary ---
Author Organization [facility] Address [address] [address] Care Team Providers Care Family Physician Name Role Phone Franklin Squires MD Primary Care Provider Encounter Details Date Type Department Care Team (Late st Contact Info) Description 12/14/2014 Correspondence [facility] 401 Physical Medicine 401 [facility] [place] [address] May Randle MD [address] [place] [address] DETAILED PRODUCT DESCRIPTION Social History Tobacco Use [...] filedocumented in this encounter Care Teams Family Physician Relationship Specialty Start Date End Date Franklin Squires MD 100 [facility] [place] [address] PCP - General Family Practice 03/08/16 documented as of this encounter
--- OUTSIDE RECORDS SUMMARY | 2024-04-13 12:40 | XMS_ITS | Encounter Summary ---
Author Organization [facility] Address [address] [address] Care Team Providers Care Traffic Clerk Name Role Phone Franklin Squires MD Primary Care Provider [phone] Encounter Details Date Type Department Care Team (Late st Contact Info) Description 09/17/2013 Correspondence External to External, [place] [address] EMPOWERMENT RULES Social History Tobacco Use Types [...] External, Provider - 09/17/2013 12:00 AM CST CATIONS CLERK documented in this encounter Plan of Treatment Not on file documented as of this encounter Visit Diagnoses Not on filedocumented in this encounter Care Teams Traffic Clerk Relationship Specialty Start Date End Date Franklin Squires MD 100 [facility] [place] [address] PCP - General Family Practice 03/08/16 documented as of this encounter
--- OUTSIDE RECORDS SUMMARY | 2024-04-13 12:40 | XMS_ITS | Encounter Summary ---
Author Organization [facility] Address [address], [place] [address] Care Team Providers Care Technical Sme Name Role Phone Franklin Squires MD Primary Care Provider Encounter Details Date Type Department Care Team (Late st Contact Info) Description 12/16/2013 Correspondence [facility] Radiology [address] [place] [address] Radiology, Provider MRI SAFETY SHEET AND COMPATIBILITY [...] Radiology, Provider - 12/16/2013 12:00 AM CST ARCH CENTER DIRECTOR documented in this encounter Plan of Treatment Not on file documented as of this encounter Visit Diagnoses Not on filedocumented in this encounter Care Teams Technical Sme Relationship Specialty Start Date End Date Franklin Squires MD 100 [facility] [address] [place] [address] PCP - General Family Practice 03/08/16 documented as of this encounter
--- OUTSIDE RECORDS SUMMARY | 2024-04-13 12:40 | XMS_ITS | Encounter Summary ---
Author Organization [facility] Address [address] [address] Care Team Providers Care Design Teacher Name Role Phone Franklin Squires MD Primary Care Provider [phone] Encounter Details Date Type Department Care Team (Late st Contact Info) Description 11/13/2012 Correspondence [facility] Radiology [address] [place] [address] Radiology, Provider MRI SAFETY SHEET AND COMPATIBILITY [...] RADIOLOGY, PROVIDER - 11/13/2012 12:00 AM CST ANE GAS COLLECTION SYSTEM OPERATOR documented in this encounter Plan of Treatment Not on file documented as of this encounter Visit Diagnoses Not on filedocumented in this encounter Care Teams Design Teacher Relationship Specialty Start Date End Date Franklin Squires MD 100 [facility] [place] [address] PCP - General Family Practice 03/08/16 documented as of this encounter
--- OUTSIDE RECORDS SUMMARY | 2024-04-13 12:40 | XMS_ITS | Encounter Summary ---
Author Organization [facility] [address] [address] Care Team Providers Care Air Crew Supervisor Name Role Phone Franklin Squires MD Primary Care Provider Encounter Details Date Type Department Care Team (Late st Contact Info) Description 02/05/2014 Correspondence [facility] Physical Therapy [address] [place] [address] Trudi Raymundo, PT [address] [place] [address] LETTER OF MEDICAL NECESSITY FOR A WHEELCHAIR [...] filedocumented in this encounter Care Teams Air Crew Supervisor Relationship Specialty Start Date End Date Franklin Squires MD 100 [facility] [place] [address] PCP - General Family Practice 03/08/16 documented as of this encounter
--- OUTSIDE RECORDS SUMMARY | 2024-04-13 12:40 | XMS_ITS | Encounter Summary ---
Author Organization [facility] Address [address], [place] [address] Care Team Providers Care Librarian Special Library Name Role Phone Franklin Squires MD Primary Care Provider [phone] Encounter Details Date Type Department Care Team (Late st Contact Info) Description 03/11/2014 Correspondence [facility] 401 Interventional Pain Management 401 [facility] [place] [address] Zelalem Cohen, DO [address] [place] [address] EMPI Social History Tobacco Use Types Packs/Day [...] on filedocumented in this encounter Care Teams Librarian Special Library Relationship Specialty Start Date End Date Franklin Squires MD 100 [facility] [place] [address] PCP - General Family Practice 03/08/16 documented as of this encounter
--- OUTSIDE RECORDS SUMMARY | 2024-04-13 12:40 | XMS_ITS | Encounter Summary ---
Author Organization [facility] Address [address], [place] [address] Care Team Providers Care Assistant Project Manager Name Role Phone Franklin Squires MD Primary Care Provider [phone] Encounter Details Date Type Department Care Team (Late st Contact Info) Description 07/23/2013 Correspondence [facility] 401 Interventional Pain Management 401 [place] [address] Zelalem Cohen DO [address] [place] [address] [employer] Social History Tobacco Use Types [...] Cohen MD - 07/23/2013 12:00 AM CDT GER RETENTION documented in this encounter Plan of Treatment Not on file documented as of this encounter Visit Diagnoses Not on filedocumented in this encounter Care Teams Assistant Project Manager Relationship Specialty Start Date End Date Franklin Squires MD 100 [facility] [address] PCP - General Family Practice 03/08/16 documented as of this encounter
--- OUTSIDE RECORDS SUMMARY | 2024-04-13 12:40 | XMS_ITS | Encounter Summary ---
Author Organization [facility] Address [address] [address] Care Team Providers Care Supply Chain Business Analyst Name Role Phone Franklin Squires MD Primary Care Provider Encounter Details Date Type Department Care Team (Late st Contact Info) Description 01/08/2013 Scanned History External to Transferred Record, Provider [facility] Social History Tobacco Use Types Packs/Day Years [...] on filedocumented in this encounter Care Teams Supply Chain Business Analyst Relationship Specialty Start Date End Date Franklin Squires MD 100 [facility] [place] [address] PCP - General Family Practice 03/08/16 documented as of this encounter
--- OUTSIDE RECORDS SUMMARY | 2024-04-13 12:40 | XMS_ITS | Encounter Summary ---
Author Organization [facility] Address [address], [place] [address] Care Team Providers Care Replenishment Buyer Name Role Phone Franklin Squires MD Primary Care Provider [phone] Encounter Details Date Type Department Care Team [...] on filedocumented in this encounter Care Teams Replenishment Buyer Relationship Specialty Start Date End Date Franklin Squires MD 100 [facility] [address] PCP - General Family Practice 03/08/16 documented as of this encounter
--- OUTSIDE RECORDS SUMMARY | 2024-04-13 12:40 | XMS_ITS | Encounter Summary ---
Author Organization [facility] Address [address], [place] [address] Care Team Providers Care Right Of Way Supervisor Name Role Phone Franklin Squires MD Primary Care Provider [phone] Encounter Details Date Type Department Care Team (Late st Contact Info) Description 04/24/2012 Correspondence [facility] Radiology [address] [place] [address] Radiology, Provider MRI SAFETY SHEET AND COMPATIBILITY [...] on filedocumented in this encounter Care Teams Right Of Way Supervisor Relationship Specialty Start Date End Date Franklin Squires MD 100 [facility] [place] [address] PCP - General Family Practice 03/08/16 documented as of this encounter
--- OUTSIDE RECORDS SUMMARY | 2024-04-13 12:40 | XMS_ITS | Encounter Summary ---
Author Organization [facility] Address [address] [address] Care Team Providers Care Psychiatric Attendant Name Role Phone Franklin Squires MD Primary Care Provider Encounter Details Date Type Department Care Team (Late st Contact Info) Description 04/20/[address] [address] Radiology, Provider MRI SAFETY SHEET AND COMPATIBILITY [...] filedocumented in this encounter Care Teams Psychiatric Attendant Relationship Specialty Start Date End Date Franklin Squires MD 100 [facility] [place] [address] PCP - General Family Practice 03/08/16 documented as of this encounter
--- OUTSIDE RECORDS SUMMARY | 2024-04-13 12:40 | XMS_ITS | Encounter Summary ---
Author Organization [facility] [address], [place] [address] Care Team Providers Care Dental Practice Manager Name Role Phone Franklin Squires MD Primary Care Provider [phone] Encounter Details Date Type Department Care Team (Late st Contact Info) Description 10/26/2013 Correspondence [facility] Physical Therapy [address] [place] [address] Trudi Raymundo, PT [address] [place] [address] LETTER OF MEDICAL NECESSITY Social History Tobacco [...] Raymundo, PT - 10/26/2013 12:00 AM CST TIONAL COUNSELOR documented in this encounter Plan of Treatment Not on file documented as of this encounter Visit Diagnoses Not on filedocumented in this encounter Care Teams Dental Practice Manager Relationship Specialty Start Date End Date Franklin Squires MD 100 [facility] [address] PCP - General Family Practice 03/08/16 documented as of this encounter
== END 2024-04-13 12:37 | disposition home or self-care (01) ==
LOC: WOUND 12:36
PROVIDERS: PCP Family Medicine; Visit Provider Nurse Practitioner Family
DX: L89.324 Pressure ulcer of left buttock, stage 4 (principal); G82.50 Quadriplegia, unspecified
CPT/HCPCS: 11042; 97605

== ENCOUNTER 2024-04-20 12:40 | Outpatient (CLI) | payer MEDICARE, OTHER, SELFPAY ==
--- OUTSIDE RECORDS SUMMARY | 2024-04-20 12:42 | XMS_ITS | Clinical Summary ---
Author Organization [facility] Address [address] [place] [address] Care Team Providers Care Rug Clipper Name Role Phone Franklin Squires MD Primary Care Provider [phone] Source Comments You are receiving this document [...] for each transition of care or referral. 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 therapy 0 02/17/2014 [...] Comments Blood Pressure 120/63 01/18/2022 12:59 PM PRODUCTION BROACHING MACHINE OPERATOR Pulse 87 01/18/2022 12:59 PM PRODUCTION BROACHING MACHINE OPERATOR Temperature 36.3 ??C (97.4 ??F) [...] this topic Medical Devices Implanted Type Area City Planning Aide Device Identifier Shelf Expiration Date Model / Serial / Lot [id number] 4ml Tisseel Explanted:([place] ntity not on file) BIOLOGIC N/A: NECK Lynne Fenwall 09/10/2011 [id number] / [id number] / [id number] Description:posterior Cath Intrathecal Indura - [id number] Implanted:Qty: 1 on 05/09/2010 at [facility] DEVICE Right: LUMBAR SPINE [employer] 01/18/2012 8709 / N/A / [id number] Cath Intrathecal Indura - [id number] Implanted:Qty: 1 on 05/29/2010 at [facility] DEVICE Snacksquare 8709 / / Scr Indira Conic 7.3x80 - [id number] Implanted:Qty: 1 on 03/13/2011 at [facility] DEVICE Right: FEMUR DISTAL [employer] 02.207.28 0 / NONE / NONE Plt Lcp Cndl Rt 4.5x170 6h - [id number] Implanted:Qty: 1 on 03/13/2011 at [facility] DEVICE Right: FEMUR DISTAL [employer] 222.656 / NONE / NONE Description:6 hole 170mm rig ht 4.5mm lcp condylar plate Scr Didier Ss Sftp 4.5x40 - [id number] Implanted:Qty: 1 on 03/13/2011 at [facility] DEVICE Left: FEMUR DISTAL [employer] [place] 214.840 / NONE / NONE Scr Didier Ss Sftp 4.5x50 - [id number] Implanted:Qty: 1 on 03/13/2011 at [facility] DEVICE Left: FEMUR DISTAL [employer] [place] 214.850 / NONE / NONE Scr Indira Lk 5.0x80 - [id number] Implanted:Qty: 2 on 03/13/2011 at [facility] DEVICE Left: FEMUR DISTAL [employer] [place] 02.205.08 0 / NONE / NONE Scr Indira Lk 5.0x85 - [id number] Implanted:Qty: 2 on 03/13/2011 at [facility] DEVICE Left: FEMUR DISTAL [employer] [place] 02.205.08 5 / NONE / NONE Scr Lk Sftp T25 5.0x50 - [id number] Implanted:Qty: 1 on 03/13/2011 at [facility] DEVICE Left: FEMUR DISTAL [employer] [place] 212.219 / NONE / NONE Scr Lk Sftp T25 5.0x60 - [id number] Implanted:Qty: 1 on 03/13/2011 at [facility] DEVICE Left: FEMUR DISTAL [employer] [place] 212.221 / NONE / NONE Scr Indira Conic 7.3x85 - [id number] Implanted:Qty: 1 on 03/13/2011 at [facility] DEVICE Left: FEMUR DISTAL [employer] [place] 02.207.28 5 / NONE / NONE Plt Lcp Cndl Lt 4.5x170 6h - [id number] Implanted:Qty: 1 on 03/13/2011 at [facility] DEVICE Left: FEMUR DISTAL [employer] [place] 222.657 / NONE / NONE Description:6 hole 170mmleng th left 4.5mm lcp condylar plate. Scr Didier Sftp 3.5x60 F-Thrd - [id number] Implanted:Qty: 1 on 03/13/2011 at [facility] DEVICE Left: TIBIA PROXIMAL [employer] [place] 204.860 / NONE / NONE Scr Star Lk Sftp 3.5x32 - [id number] Implanted:Qty: 1 on 03/13/2011 at [facility] DEVICE Left: TIBIA PROXIMAL [employer] [place] 212.112 / NONE / NONE Scr Star Lk Sftp 3.5x55 - [id number] Implanted:Qty: 2 on 03/13/2011 at [facility] DEVICE Left: TIBIA PROXIMAL [employer] [place] 212.123 / NONE / NONE Scr Star Lk Sftp 3.5x60 - [id number] Implanted:Qty: 2 on 03/13/2011 at [facility] DEVICE Left: TIBIA PROXIMAL [employer] [place] 212.124 / NONE / NONE Plt Lcp M/Prox Lt 3.5x94 4h - [id number] Implanted:Qty: 1 on 03/13/2011 at [facility] DEVICE Left: TIBIA PROXIMAL [employer] [place] 239.955 / NONE / NONE Scr Didier Ss Sftp 4.5x36 - [id number] Implanted:Qty: 1 on 03/13/2011 at [facility] DEVICE Right: FEMUR DISTAL [employer] [place] 214.836 / NONE / NONE Scr Didier Ss Sftp 4.5x44 - [id number] Implanted:Qty: 1 on 03/13/2011 at [facility] DEVICE Right: FEMUR DISTAL [employer] [place] 214.844 / NONE / NONE Scr Indira Lk 5.0x75 - [id number] Implanted:Qty: 1 on 03/13/2011 at [facility] DEVICE Right: FEMUR DISTAL [employer] [place] 02.205.07 5 / NONE / NONE Scr Indira Lk 5.0x85 - [id number] Implanted:Qty: 2 on 03/13/2011 at [facility] DEVICE Right: FEMUR DISTAL [employer] [place] 02.205.08 5 / NONE / NONE Scr Lk Sftp T25 5.0x44 - [id number] Implanted:Qty: 1 on 03/13/2011 at [facility] DEVICE Right: FEMUR DISTAL [employer] [place] 212.216 / NONE / NONE Scr Lk Sftp T25 5.0x65 - [id number] Implanted:Qty: 1 on 03/13/2011 at [facility] DEVICE Right: FEMUR DISTAL [employer] [place] 212.222 / NONE / NONE Plt Lp T Ti Str 4h - [id number] Implanted:Qty: 3 on 07/28/2014 by Cooper Shelley MD at [facility] DEVICE Right: SKULL [employer] [place] 421.504 / / Scr Matrix Sfdr 4mm - [id number] Implanted:Qty: 6 on 07/28/2014 by Cooper Shelley MD at [facility] DEVICE Right: SKULL [employer] [place] 04.503.10 4.01 / / Lead Linear 3-4 8 Contact 50cm - [id number] Implanted:Qty: 1 on 03/08/2016 by Zelalem Cohen DO at [facility] DEVICE N/A: OTHER-SEE DESCRIPTION [employer] [facility] 09/10/2017 [id number] 2500 / / [id number] Description:LUMBAR Lead Linear 3-4 8 Contact 50cm - [id number] Implanted:Qty: 1 on 03/08/2016 by Zelalem Cohen DO at [facility] DEVICE N/A: OTHER-SEE DESCRIPTION [employer] [facility] 09/10/2017 [id number] 2500 / / [id number] Description:LUMBAR Lead Linear 3-4 8 Contact 50cm - [id number] Implanted:Qty: 1 on 03/08/2016 by Zelalem Cohen DO at [facility] DEVICE N/A: OTHER-SEE DESCRIPTION [employer] [facility] 09/10/2017 [id number] 2500 / / [id number] Description:LUMBAR Lead Linear 3-4 8 Contact 50cm - [id number] Implanted:Qty: 1 on 03/08/2016 by Zelalem Cohen DO at [facility] DEVICE N/A: OTHER-SEE DESCRIPTION [employer] [facility] 09/10/2017 [id number] 2500 / / [id number] Description:LUMBAR Lead Linear 3-4 8 Contact 50cm - [id number] Implanted:Qty: 1 on 05/24/2016 by Zelalem Cohen DO at [facility] DEVICE N/A: SPINE LUMBAR POSTERIOR [employer] [facility] 01/31/2018 [id number] 2500 / [id number] / Lead Linear 3-4 8 Contact 50cm - [id number] Implanted:Qty: 1 on 05/24/2016 by Zelalem Cohen DO at [facility] DEVICE N/A: SPINE LUMBAR POSTERIOR [employer] [facility] 04/26/2018 [id number] 2500 / [id number] / Lead Linear 3-4 8 Contact 50cm - [id number] Implanted:Qty: 1 on 05/24/2016 by Zelalem Cohen DO at [facility] DEVICE N/A: SPINE LUMBAR POSTERIOR [employer] [facility] 04/26/2018 [id number] 2500 / [id number] / Lead Linear 3-4 8 Contact 50cm - [id number] Implanted:Qty: 1 on 05/24/2016 by Zelalem Cohen DO at [facility] DEVICE N/A: SPINE LUMBAR POSTERIOR [employer] [facility] 04/26/2018 [id number] 2500 / [id number] / Generator Pulse Spectra - [id number] Implanted:Qty: 1 on 05/24/2016 by Zelalem Cohen DO at [facility] DEVICE N/A: SPINE LUMBAR POSTERIOR [employer] [facility] 05/08/2018 [id number] / [id number] / [id number] [place] [employer] - [id number] Implanted:Qty: 1 on 05/24/2016 by Zelalem Cohen DO at [facility] DEVICE N/A: SPINE LUMBAR POSTERIOR [employer] [facility] 05/02/2018 [id number] 60 / / [id number] [place] [employer] - [id number] Implanted:Qty: 1 on 05/24/2016 by Zelalem Cohen DO at [facility] DEVICE N/A: SPINE LUMBAR POSTERIOR [employer] [facility] 02/28/2018 [id number] 60 / / [id number] Procedures Procedure Name Priority Date/Time Associated Diagnosis Comments CREATININE/GFR, WB POC Routine 01/06/2016 12:04 PM PRODUCTION BROACHING MACHINE OPERATOR Back pain, 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 HGB A1C Routine 07/29/2014 3:19 AM CDT from Last 3 Months or Most Recently Relevant to Health Maintenance Results * CREATININE/GFR, WB POC (01/06/2016 12:04 PM PRODUCTION BROACHING MACHINE OPERATOR) Creat Whole Blood 0.9 0.66 - 1.25 mg/dl [facility] GFR, Estimated >60 >60 ml/min/1.7 3m2 [facility] GFR, Est., If Black >60 >60 ml/min/1.7 3m2 [facility] 01/06/2016 12:0 4 PM PRODUCTION BROACHING MACHINE OPERATOR 01/06/2016 12:21 PM PRODUCTION BROACHING MACHINE OPERATOR Trae Blair MD LAB_[facility] [phone] * (ABNORMAL) HGB A1C (07/29/2014 3:19 AM CDT) Hgb A1c 6.4(H) 4.3 - 6.1 % [facility] Comment: The usual A1C goal for people with diabetes, age 18-75, is <8.0%. Physicians may recommend a higher or lower goal for specific individuals. 07/29/2014 3:19 AM CDT 07/29/2014 3:22 AM CDT [facility] - 07/29/2014 12:53 PM CDT Performed at [facility], [address] ??[address] [place] Wei PA-C LAB_[address] [address] from Last 3 Months or Most Recently [...] 5:44 PM 07/28/2014 6:50 PM Care Teams Rug Clipper Relationship Specialty Start Date End Date Franklin Squires MD 100 [facility] [place] [address] PCP - General Family Practice 03/08/16
--- OUTSIDE RECORDS SUMMARY | 2024-04-20 12:42 | XMS_ITS | Clinical Summary ---
Author Organization [employer] Address [place], [place] [address] Care Team Providers Care Shank Tapper Name Role Phone Zelalem Cohen MD Unavailable [phone] May Randle MD Unavailable [phone] Franklin Squires MD Primary Care Provider Fred CraftW Unavailable Diane Charles MD Unavailable [phone] Julia Ware RN Unavailable [phone] Allergies Active Allergy Reactions Criticality Noted Date [...] bedIndications:Non-heal ing surgical wound, subsequent encounter Drive [employer] 8 inch low loss mattress and 1/2 rails. Semi-electric bed. Length of need 6 weeks. Bed patient experience coordinator:no 1 unit 018 Active acetaminophen (TYLENOL EXTRA [...] 60mm, Cut-to-Fit 01/16 - 2 11/18. Item #[id number]. 1 Each 11 021 Active baclofen (LIORESAL) [...] directed. 3 Each 3 024 2023 Discontinued(* Error/charge entry error) Active Problems Problem Noted Date Diagnosed [...] Date Resolved Date Soft tissue infection 10/22/20232023 longterm current use of anticoagulant 06/20/2023 01/08/2024 Cellulitis of scrotum 05/08/20232022 UTI (urinary tract infection) 05/08/2023 06/20/2023 Quadriplegia, unspecified 10/23/2022 Continuous opioid dependence 07/01/2022 08/20/2022 Urinary tract infection asso ciated with indwelling urethral catheter 10/05/2021 06/20/2023 Hypertensive urgency 10/04/2021 023 Type 2 diabetes mellitus, [place] [facility] long-term current use of insulin 01/06/2021 02/14/2024 [...] delivery 04/16/2007 10/01/2007 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 Urinary Catheter - Suprapubic. ) 04/20/[address] [phone] Franklin Squires MD Refill Request (Gabapentin 400 mg) 04/13/[address] [phone] Franklin Squires MD Form (Standard Written Order: Rehab Accessories. Cushion, Quadtro Select HI PRO 20x20 or 11x11 CELL) 04/07/2024 Anticoagulation (warfarin) [address] [phone] 1, [facility] Anticoagulation (acelis) 04/07/[address] [phone] Franklin Squires MD Form (Physician Orders) 04/03/2024 2:30 PM CDT Office Visit [address] [place] [phone] Franklin Squires MD Follow Up (6 week follow up) 04/03/2024 Travel 04/02/[address] [place] [address] Franklin Squires MD Refill Request (Oxycodone) 03/28/2024 Refill [facility] [address] [place] [address] Franklin Squires MD Refill Request (Furosemide) 03/20/2024 4:32 PM CDT - 03/20/2024 8:34 PM CDT Emergency [facility] [address] [place] [address] Quan Corbett PA Suprapubic catheter dysfunction, initial encounter (HC) (Primary Dx) Discharge Disposition: Home Self Care 03/20/2024 Travel 03/20/[address] [place] [address] Franklin Squires MD other (FYI / UPDATE ) 03/19/2024 Anticoagulation (warfarin) [address] [place] [address] 1, [facility] Anticoagulation (acelis) 03/13/2024 2:10 PM CDT Orders Only [address] [phone] Lab, [facility] 03/13/2024 Travel 03/10/[address] [place] [address] Franklin Squires MD Form (Home Health Certification and Plan of Care. ) 03/10/[address] [place] [address] Franklin Squires MD Form (60 day summary report. SNV 2x/wk for wound care.) 03/05/2024 Anticoagulation (warfarin) [address] [place] [phone] 1, [facility] Anticoagulation (Acelis) 03/02/[address] [phone] Gabrielle Prado PA Refill Request (Oxycodone) 03/02/[address] [phone] Franklin Squires MD Refill Request (Lorazepam) 02/24/2024 Patient Outreach [facility] Care Management - Advanced Care Team [address] [place] [address] Archana Wright RN Complex Care Management (ACO outreach engagement ) 02/24/[address] [phone] Franklin Squires MD Form (Physician Orders. Medication order: Lorazapam 0.5 mg; oral tablet. Amoxicillin- clavulanate 875mg) 02/24/[address] [phone] Franklin Squires MD Refill Request (LORazepam (ATIVAN) 0.5 mg tab) 02/20/2024 1:30 PM CDT Office Visit [address] [phone] Franklin Squires MD [facility] F/U (02/15/24) 02/20/2024 Anticoagulation (warfarin) [address] [phone] 1, [facility] Anticoagulation 02/20/2024 Travel 02/18/2024 Anticoagulation (warfarin) [address] [phone] 1, [facility] Anticoagulation (acelis) 02/18/2024 Patient Outreach [facility] [address] [place] [address] Archana Stein, VALERIE Primary RN Care Management (Hospital DC:02/17/24/LACE:47/[place]); Hospital F/U 02/17/2024 Telephone [facility] [address] [place] [address] Franklin Squires MD Form (Service Order: Hold. Acute care hospitalization for pneumonia. Hold [facility] pending discharge plans. Effective: 02/15/2024) 02/15/2024 4:34 PM CDT - 02/17/2024 2:45 PM CDT Hospital Encounter [facility] [address] [facility] [place] [address] [facility] Internal [facility] Oziel Hollingsworth Alireza, MD Pneumonia due to infectious organism, unspecified laterality, unspecified part of lung (Primary Dx); History of DVT (deep vein thrombosis); Pressure injury of right buttock, stage 1 Discharge Disposition: Home Self Care 02/15/2024 Travel 02/15/2024 Refill [facility] [address] [place] [address] , [facility] Refill Request (Warfarin) 02/14/2024 3:10 PM CDT - 02/15/2024 2:45 PM CDT Hospital Encounter [facility] [address] [place] [address] Quan Corbett, James Liu MD Cudak, Austin Christopher, George Michael, Malini Nayak NP Leukocytosis, unspecified type (Primary Dx); Fever, unspecified fever cause; Chills; Tachycardia; Pulmonary infiltrate; Elevated C-reactive protein (CRP); Pressure injury of deep tissue of left buttock Discharge Disposition: Critical Access Hospital 02/14/2024 Travel 02/05/2024 Anticoagulation (warfarin) [address] [place] [phone] [place] [address] [facility] Anticoagulation (Acelis) 01/28/[address] [place] [address] Franklin Squires MD Refill Request (Oxycodone) 01/22/[address] [place] [address] Franklin Squires MD Form (Standard Written Order: Rehab Accessories./Cushion, Quadtro Select HI PRO 20x20 or 11x11 Cell) 01/22/[address] [place] [address] Franklin Squires MD Form (Standard Written Order: Repairs/Battery, M34 Gel 60AH 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 [address] * BLADDER CATHETERIZATION (03/20/2024 7:52 PM CDT) [...] ?Risks discussed: ??Pain, incomplete procedure and infection [place] protocol: ??Procedure explained and questions answered to [...] CDT) CULTURE RESULT(A) 03/28/2024 11:28 AM CDT [facility] CULTURE 2+ Klebsiella pneumoniae 03/28/2024 11:28 AM CDT [facility] CULTURE 2+ Pseudomonas aeruginosa 03/28/2024 11:28 AM CDT [facility] CULTURE 2+ Staphylococcus aureus 03/28/2024 11:28 AM CDT [facility] Comment:Isolate is MRSA (Met hicillin-resistant Staph aureus). CULTURE 2+ Mixed brigette present 03/28/2024 11:28 AM CDT [facility] GRAM STAIN No PMNs 03/28/2024 11:28 AM CDT [facility] GRAM STAIN No Epithelial cells 03/28/2024 11:28 AM CDT [facility] GRAM STAIN No RBCs 03/28/2024 11:28 AM CDT [facility] GRAM STAIN 4+ Gram Negative Bacilli 03/28/2024 11:28 AM CDT [facility] GRAM STAIN 2+ Gram Positive Cocci 03/28/2024 11:28 AM CDT [facility] Other SPECIMEN FROM PENIS / Unknown Non-Blood / Unknown 03/20/2024 5:01 PM CDT 03/20/2024 5:05 PM CDT [facility] - 03/28/2024 11:28 AM CDT [...] TRIMETHOPRIM/SULF <=0.5/9.5: S Quan RAMSEY MICROBIOLOG Y [facility] [address] [place] [address], * (ABNORMAL) CBC WITH AUTO DIFFERENTIAL (03/20/2024 4:58 PM CDT) Only the most recent of3 resultswithin the time period is included. WHITE BLOOD COUNT 10.9 4.5 - 11.0 thou/cu mm 03/20/2024 5:06 PM [facility] RED BLOOD COUNT 4.92 4.30 - 5.90 mil/cu mm 03/20/2024 5:06 PM [facility] HEMOGLOBIN 12.7(L) 13.5 - 17.5 g/dL 03/20/2024 5:06 PM [facility] HEMATOCRIT 40.0 37.0 - 53.0 % 03/20/2024 5:06 PM [facility] MCV 81 80 - 100 fL 03/20/2024 5:06 PM [facility] MCH 25.8(L) 26.0 - 34.0 pg 03/20/2024 5:06 PM [facility] MCHC 31.8(L) 32.0 - 36.0 g/dL 03/20/2024 5:06 PM [facility] RDW 18.1(H) 11.5 - 15.5 % 03/20/2024 5:06 PM [facility] PLATELET COUNT 263 140 - 440 thou/cu mm 03/20/2024 5:06 PM [facility] MPV 9.4 6.5 - 11.0 fL 03/20/2024 5:06 PM T [facility] % NEUT 68.4 % 03/20/2024 5:06 PM T [facility] % LYMPH 20.1 % 03/20/2024 5:06 PM T [facility] % MONO 8.4 % 03/20/2024 5:06 PM T [facility] % EOS 2.8 % 03/20/2024 5:06 PM T [facility] % BASO 0.3 % 03/20/2024 5:06 PM T [facility] ABSOLUTE NEUTROPHILS 7.4(H) 1.7 - 7.0 thou/cu mm 03/20/2024 5:06 PM [facility] ABSOLUTE LYMPHOCYTES 2.2 0.9 - 2.9 thou/cu mm 03/20/2024 5:06 PM [facility] ABSOLUTE MONOCYTES 0.9(H) <0.9 thou/cu mm 03/20/2024 5:06 PM T [facility] ABSOLUTE EOSINOPHILS 0.3 <0.5 thou/cu mm 03/20/2024 5:06 PM [facility] ABSOLUTE BASOPHILS 0.0 <0.3 thou/cu mm 03/20/2024 5:06 PM [facility] Blood BLOOD SPECIMEN / Unknown Butterfly / Unknown 03/20/2024 4:58 PM CDT 03/20/2024 5:02 PM CDT Quan RAMSEY HEMATOLOGY [facility] [address] [place] [address] * LACTATE VENOUS (03/20/2024 4:58 PM CDT) Only the most recent of2 resultswithin the time period is included. LACTATE,VENOUS 1.3 0.5 - 2.0 mmol/L 03/20/2024 5:21 PM CDT [facility] Blood BLOOD SPECIMEN / Unknown Butterfly / Unknown 03/20/2024 4:58 PM CDT 03/20/2024 5:02 PM CDT Quan RAMSEY CHEMISTRY [facility] [address] [place] [address] * (ABNORMAL) BASIC METABOLIC PANEL (03/20/2024 4:58 PM CDT) SODIUM 139 136 - 145 mmol/L 03/20/2024 5:22 PM [facility] POTASSIUM 4.5 3.5 - 5.1 mmol/L 03/20/2024 5:22 PM [facility] CHLORIDE 100 98 - 107 mmol/L 03/20/2024 5:22 PM [facility] CO2,TOTAL 29 22 - 29 mmol/L 03/20/2024 5:22 PM [facility] ANION GAP 10 5 - 18 03/20/2024 5:22 PM [facility] GLUCOSE 115(H) 70 - 99 mg/dL 03/20/2024 5:22 PM [facility] CALCIUM 9.4 8.8 - 10.2 mg/dL 03/20/2024 5:22 PM [facility] BUN 21 8 - 23 mg/dL 03/20/2024 5:22 PM [facility] CREATININE 0.63(L) 0.70 - 1.20 mg/dL 03/20/2024 5:22 PM [facility] BUN/CREAT RATIO 33(H) 10 - 20 5:22 PM [facility] eGFR >90 >90 mL/min/1.7 3m2 03/20/2024 5:22 PM [facility] Comment:As of 2022, eG [...] CDT Quan RAMSEY CHEMISTRY Performing Organization Address [facility] Co de Phone Number [facility] [address] [place] [address] * (ABNORMAL) URINALYSIS MICROSCOPIC (03/13/2024 11:04 AM CDT) Only the most recent of2 resultswithin the time period is included. RBC 0-2 0-2, None Seen /HPF 03/13/2024 2:26 PM CDT [facility] WBC 6-10(A) 0-2, 3-5, None Seen /HPF 03/13/2024 2:26 PM CDT [facility] BACTERIA Few None Seen, Rare, Few Bacteria/ HPF 03/13/2024 2:26 PM CDT [facility] EPITHELIAL CELLS Few None Seen, Few Epi/HPF 03/13/2024 2:26 PM CDT [facility] WHITE CELL CLUMPS Present(A) (none) 03/13/2024 2:26 PM CDT [facility] Urine URINE SPECIMEN / Unknown Non-Blood / Unknown 03/13/2024 11:04 AM CDT 03/13/2024 1:37 PM CDT Franklin Squires MD URINE Performing Organization Address [facility] Co de Phone Number [facility] [address] [place] [address] * (ABNORMAL) URINE CULTURE (03/13/2024 11:04 AM CDT) Only the most recent of2 resultswithin the time period is included. CULTURE RESULT(A) 03/16/2024 9:13 AM CDT [facility] LAB[facility] CULTURE >100,000 CFU/mL Pseudomonas aeruginosa 03/16/2024 9:13 AM CDT [facility] CULTURE 50,000-100,000 CFU/mL Staphylococcus aureus 03/16/2024 9:13 AM CDT [facility] CULTURE 10,000-50,000 CFU/mL Enterobacter cloacae complex 03/16/2024 9:13 AM CDT [facility] Comment: May develop resistance during prolonged [...] AM CDT 03/13/2024 1:37 PM CDT Narrative [facility] - 03/16/2024 9:13 AM CDT May represent colonization. No further workup pending. Franklin Squires MD MICROBIOLOGY [facility] [address] [place] [address], * (ABNORMAL) UA W/ SEDIMENT EXAM REFLEXED PER CRITERIA (03/13/2024 11:04 AM CDT) Only the most recent of2 resultswithin the time period is included. COLOR Yellow Yellow Color 03/13/2024 2:24 PM [facility] CLARITY Clear Clear Clarity 03/13/2024 2:24 PM [facility] SPECIFIC GRAVITY,URINE <=1.005(A) 1.010, 1.015, 1.020, 1.025 03/13/2024 2:24 PM [facility] PH,URINE 6.5 6.0, 7.0, 8.0, 5.5, 6.5, 7.5, 8.5 03/13/2024 2:24 PM [facility] UROBILINOGEN, QUALITATIVE Normal Normal EU/dl 03/13/2024 2:24 PM [facility] PROTEIN, URINE Negative Negative mg/dL 03/13/2024 2:24 PM CDT [facility] GLUCOSE, URINE Negative Negative mg/dL 03/13/2024 2:24 PM CDT [facility] KETONES,URINE Negative Negative mg/dL 03/13/2024 2:24 PM CDT [facility] BILIRUBIN,URI NE Negative Negative 03/13/2024 2:24 PM CDT [facility] OCCULT BLOOD,URINE Moderate(A) Negative 03/13/2024 2:24 PM CDT [facility] NITRITE Negative Negative 03/13/2024 2:24 PM CDT [facility] LEUKOCYTE ESTERASE Moderate(A) Negative 03/13/2024 2:24 PM CDT [facility] Urine URINE SPECIMEN / Unknown Non-Blood / Unknown 03/13/2024 11:04 AM CDT 03/13/2024 1:37 PM CDT Franklin Squires MD URINE Performing Organization Address City/[facility]/ZIP Co de Phone Number [facility] [address] [place] [address] * POTASSIUM (02/20/2024 2:15 PM CDT) Only the most recent of2 resultswithin the time period is included. POTASSIUM 4.3 3.5 - 5.1 mmol/L 02/20/2024 4:02 PM CDT [facility] Blood BLOOD SPECIMEN / Unknown Venipuncture / Unknown 02/20/2024 2:15 PM CDT 02/20/2024 3:06 PM CDT Franklin Squires MD CHEMISTRY Performing Organization Address [facility]/ZIP Co de Phone Number [facility] [address] [place] [address] * (ABNORMAL) PROTIME-INR (02/20/2024 2:15 PM CDT) Only the most recent of5 resultswithin the time period is included. INR 1.9(H) <1.3 02/20/2024 2:38 PM CDT [facility] PROTIME 21.2(H) 10.3 - 12.3 sec 02/20/2024 2:38 PM CDT [facility] Blood BLOOD SPECIMEN / Unknown Venipuncture / Unknown 02/20/2024 2:15 PM CDT 02/20/2024 2:15 PM CDT Narrative [facility] - 02/20/2024 2:38 PM CDT [...] is on UFH. Franklin Squires MD HEMATOLOGY [facility] [address] [place] [address] * SODIUM (02/17/2024 5:11 AM CDT) Pathologist [facility] [place] SODIUM 140 136 - 145 mmol/L 02/17/2024 6:[address] [facility] Blood BLOOD SPECIMEN / Unknown Butterfly / Unknown 02/17/2024 5:11 AM CDT 02/17/2024 5:44 AM CDT John Ludwig MD CHEMISTRY [facility] [place]NAL ZIP [address] [address] [place] [address] * (ABNORMAL) CREATININE (02/17/2024 5:11 AM CDT) eGFR >90 >90 mL/min/1.7 3m2 02/17/2024 6:[address] [facility] Comment:As of 2022, eG FR is calculated by the CKD-EPI creatinine equation without race adjustment. ??eGFR can be influenced by muscle mass, exercise, and diet. ??The reported eGFR is an estimation only and is only applicable if the renal function is stable. CREATININE 0.56(L) 0.70 - 1.20 mg/dL 02/17/2024 6:[address] [facility] Blood BLOOD SPECIMEN / Unknown Butterfly / Unknown 02/17/2024 5:11 AM CDT 02/17/2024 5:44 AM CDT John Ludwig MD CHEMISTRY [facility] INTERNAL ZIP [address] [place] [address] * MAGNESIUM (02/17/2024 5:11 AM CDT) MAGNESIUM 2.0 1.6 - 2.4 mg/dL 02/17/2024 7:[address] [facility] Blood BLOOD SPECIMEN / Unknown Butterfly / Unknown 02/17/2024 5:11 AM CDT 02/17/2024 5:44 AM CDT John Ludwig MD CHEMISTRY [facility] INTERNAL ZIP [address] [address] [place] [address] * (ABNORMAL) GLUCOSE METER (02/16/2024 11:41 AM CDT) Only the most recent of6 resultswithin the time period is included. GLUCOSE METER 129(H) 65 - 100 mg/dL 02/16/2024 12:[address] [facility] Blood BLOOD SPECIMEN / Unknown 02/16/2024 11:41 AM CDT 02/16/2024 12:02 PM CDT John Ludwig MD CHEMISTRY [facility] INTERNAL ZIP [address] [place] [address] * LEGIONELLA AND PNEUMOCOCCAL URINE ANTIGEN (02/15/2024 10:25 AM CDT) STREP PNEUMO ANTIGEN Negative 02/15/2024 3:46 PM CDT [facility] Comment:Presumptive negative for pneumococcal pneumonia, suggesting no current or recent pneumococcal infection. Infection due to S. pneumoniae cannot be ruled out since the antigen present in the sample may be below the detection limit of the test. LEGIONELLA ANTIGEN Negative 02/15/2024 3:46 PM CDT [facility] Comment:Negative for L.pneum ophila serogroup [...] 10:30 AM CDT James Ramírez MD [facility] [address] [place] [address], * (ABNORMAL) WHITE BLOOD COUNT (02/15/2024 5:54 AM CDT) Pathologist [facility] [place] WHITE BLOOD COUNT 11.7(H) 4.5 - 11.0 thou/cu mm 02/15/2024 7:16 AM CDT [facility] Blood BLOOD SPECIMEN / Unknown Venipuncture / Unknown 02/15/2024 5:54 AM CDT 02/15/2024 7:09 AM CDT James Ramírez MD HEMATOLOGY [facility] [address] [place] [address] * CT ABDOMEN PELVIS WO (02/14/2024 8:12 [...] No sign of osteomyelitis. Procedure Note Clifton Fishcer MD - 02/14/2024 For Patients: As a result of the 21st Century Cures Act, medical imagingexams and procedure reports [...] 6-15 ng/L ng/L 02/14/2024 8:12 PM CDT [facility] Blood BLOOD SPECIMEN / Unknown Venipuncture / Unknown 02/14/2024 7:49 PM CDT 02/14/2024 7:53 PM CDT Quan RAMSEY CHEMISTRY [facility] [address] [place] [address] * (ABNORMAL) TROPONIN T (HS) ACUTE W/2HR REFLEX (02/14/2024 5:35 PM CDT) TROPONIN T HS 33(H) 6-15 ng/L ng/L 02/14/2024 6:42 PM CDT [facility] Blood BLOOD SPECIMEN / Unknown Venipuncture / Unknown 02/14/2024 5:35 PM CDT 02/14/2024 5:38 PM CDT Narrative [facility] - 02/14/2024 6:42 PM CDT [...] emergency department patient population. Quan RAMSEY CHEMISTRY [facility] [address] [place], [place] [id number] * XR CHEST 1 VIEW PORTABLE (02/14/2024 [...] CULTURE No Growth. 02/20/2024 5:27 AM CDT [facility] Blood BLOOD SPECIMEN / Unknown Butterfly / Unknown 02/14/2024 3:58 PM CDT 02/14/2024 4:02 PM CDT Quan RAMSEY MICROBIOLOG Y Performing Organization Address City/State/[facility] Co de Phone Number [facility] [address] [place] [address] * PROCALCITONIN (02/14/2024 3:50 PM CDT) PROCALCITONIN 0.10 ng/ml 02/14/2024 5:09 PM CDT [facility] Blood BLOOD SPECIMEN / Unknown Butterfly / Unknown 02/14/2024 3:50 PM CDT 02/14/2024 4:39 PM CDT Narrative [facility] - 02/14/2024 5:09 PM CDT [...] Quan RAMSEY SEND OUTS Performing Organization Address [facility] Co de Phone Number [facility] [address] [place] [address] * (ABNORMAL) C-REACTIVE PROTEIN (02/14/2024 3:50 PM CDT) Pathologist [facility] [place] C-REACTIVE PROTEIN 10.9(H) <0.5 mg/dL 02/14/2024 5:09 PM CDT [facility] Blood BLOOD SPECIMEN / Unknown Butterfly / Unknown 02/14/2024 3:50 PM CDT 02/14/2024 4:02 PM CDT [facility]SE[facility] CHEMISTRY Performing Organization Address [facility] Co de Phone Number [facility] [address] [place] [address] * (ABNORMAL) COMP METABOLIC PANEL (02/14/2024 3:50 PM T) SODIUM 134(L) 136 - 145 mmol/L 02/14/2024 4:24 PM [facility] POTASSIUM 4.3 3.5 - 5.1 mmol/L 02/14/2024 4:24 PM [facility] CHLORIDE 96(L) 98 - 107 mmol/L 02/14/2024 4:24 PM [facility] CO2,TOTAL 25 22 - 29 mmol/L 02/14/2024 4:24 PM [facility] ANION GAP 13 5 - 18 02/14/2024 4:24 PM [facility] GLUCOSE 118(H) 70 - 99 mg/dL 02/14/2024 4:24 PM [facility] CALCIUM 9.4 8.8 - 10.2 mg/dL 02/14/2024 4:24 PM [facility] BUN 15 8 - 23 mg/dL 02/14/2024 4:24 PM [facility] CREATININE 0.60(L) 0.70 - 1.20 mg/dL 02/14/2024 4:24 PM [facility] BUN/CREAT RATIO 25(H) 10 - 20 4:24 PM [facility] eGFR >90 >90 mL/min/1.7 3m2 02/14/2024 4:24 PM [facility] LABORATORY Comment:As of 2022, eG FR is calculated by the CKD-EPI creatinine equation without race adjustment. ??eGFR can be influenced by muscle mass, exercise, and diet. ??The reported eGFR is an estimation only and is only applicable if the renal function is stable. ALBUMIN 4.1 4.0 - 4.9 g/dL 02/14/2024 4:24 PM [facility] PROTEIN,TOTAL 7.8 6.0 - 8.0 g/dL 02/14/2024 4:24 PM [facility] BILIRUBIN,TOTAL 0.6 0.0 - 1.2 mg/dL 02/14/2024 4:24 PM CDT [facility] ALK PHOSPHATASE 117 40 - 129 IU/L 02/14/2024 4:24 PM CDT [facility] ALT (SGPT) 47 10 - 50 IU/L 02/14/2024 4:24 PM CDT [facility] AST (SGOT) 42 10 - 50 IU/L 02/14/2024 4:24 PM CDT [facility] Blood BLOOD SPECIMEN / Unknown Butterfly / Unknown 02/14/2024 3:50 PM CDT 02/14/2024 4:02 PM CDT Quan RAMSEY CHEMISTRY [facility] [address] [place] [address] from Last 3 Months Additional Health Concerns [...] 12 months since positive culture): 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, receiving hemodialysis, has chronic open wounds/skin damage, has long-term percutaneous indwelling medical devices Exclusions for nares collection (if <12 months since positive culture) include all of the previous exclusions plus patients on antibiotics 7 days prior to collection 03/13/2018 03/20/2024 Advance Directives Documents on File Type Date Recorded Patient Needle Process Felt Goods Supervisor Expl anation Healthcare Directive 05/09/2023 023 [...] Code Status Discussion: Reviewed Preferences Care Teams Shank Tapper Relationship Specialty Start Date End Date Franklin Squires MD [address] [place] [address] PCP - General Family Practice 10/18/15 Zelalem Cohen MD Physical Therapist 03/13/12 May Randle MD Physical Medicine and Rehabilitation 03/13/12 Fred Craft LSW [address] [place] [address] Behavior Analyst 05/03/17 Diane Charles MD [address] [place] [address] Surgery - Urology 01/17/23 Julia Ware, VALERIE [address] [place] [address] Registered Nurse 07/17/23
--- OUTSIDE RECORDS SUMMARY | 2024-04-20 12:42 | XMS_ITS | Continuity of Care Document ---
Author Name [facility] Organization [facility] Care Team Providers Care Dining Room Host/Hostess Name Role Phone [facility] Unavailable Unavailable Problems Combined list of problems from 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 It does not include entries that were removed or entered in error. Problem Status Onset Date Problem Type Date of Resolution Comments Source Abnormal liver function Active Condition [facility] Anemia (SCT 424461471) Active Condition [facility] Anxiety ([facility] 08483526) Active Condition [facility] Autonomic dysreflexia Active Condition [facility] Chronic Pain Syndrome (SCT 354657162) Active Condition [facility] Colostomy present Active Condition [facility] Constipation ([facility]CT 31841131) Active Condition [facility] Continuous opioid dependence Active Condition [facility] COPD - Chronic Obstructive Pulmonary Disease (SCT 16867923) Active Condition [facility] Dementia Active Condition [facility] Depression ([facility] 31723655) Active Condition [facility] Diabetes Mellitus Type 2 (SCT 67278600) Active Condition [facility] Ependymoma of spinal cord Active Condition [facility] Hearing Loss (SCT 01053646) Active Condition [facility] History of Deep Vein Thrombosis (SCT 432251717) Active Condition [facility] History of pressure injury Active Condition [facility] HTN - Hypertension (SCT 91847425) Active Condition [facility] Hyperlipidemia (SCT 50921996) Active Condition [facility] Hyponatremia Active Condition [facility] Long-term current use of anticoagulant Active Condition [facility] Neurogenic Bladder (SCT 398996728) Active Condition [facility] Neurogenic bowel Active Condition [facility] Osteoporosis ([facility] 01388713) Active Condition [facility] Paraplegia Active Condition [facility] Spasticity Active Condition [facility] Suprapubic urinary catheter in situ Active Condition [facility] Supraventricular tachycardia Active Condition [facility] Tinnitus ([facility] 48041624) Active Condition [facility] Vitamin D Deficiency ([facility] 6065591) Active Condition [facility] Diagnosis: ICD-10-CM Z73.6 Limitation of activities due to disability Active Diagnosis [facility] Diagnosis: ICD-10-CM G82.20 Paraplegia, unspecified Active Diagnosis [facility] Diagnosis: ICD-10-CM Z43.3 Encounter for attention to colostomy Active Diagnosis [facility] Diagnosis: ICD-10-CM Z71.3 Dietary counseling and surveillance Active Diagnosis [facility] Diagnosis: ICD-10-CM F32.A Depression, unspecified Active Diagnosis [facility] Medications Combined list of outpatient medications from Department of Defense and [facility] Affairs facilities.Medications provided include 1) outpatient medications from the last 15 months, and 2) patient-reported medications. Medication Details Route Status Patient Instructions Prescription Expires Prescription Number Last Dispense Date Ordering Provider Order Date Order Qty Source ACETAMINOPH EN 500MG TAB TAKE TWO TABLETS BY MOUTH THREE TIMES A DAY NEEDED ORAL ACTIVE Jagdish BARRETT N 2022 [facility] AMLODIPINE BESYLATE (AMLODIPINE BESYLATE), 5 MG, TABLET, ORAL, [employer] 1000 ea. BOTTLE Active [id number] 4 2023 90 Pharmac y Data Transac tion Service Facilit y AMLODIPINE BESYLATE (amlodipine besylate), 5 MG, TABLET, ORAL, [employer], 1000 ea. BOTTLE Active [id number] 2023 90 Pharmac y Data Transac tion Service Facilit y AMLODIPINE BESYLATE 2.5MG TAB TAKE TWO TABLETS BY MOUTH EVERY MORNING ORAL ACTIVE Jagdish BARRETT N 2022 [facility] AMOX TR-POTASSIU M CLAVULANATE (AMOXICILLI N/POTASSIUM CLAV), 875-125 MG, TABLET, ORAL, [facility] [facility], 20 ea. BOTTLE Active [id number] 3 2022 14 Pharmac y Data Transac tion Service Facilit y AMOXICILLIN -CLAVULANAT E POTASS (amoxicilli n/potassium clavulanate ), 875-125 MG, TABLET, ORAL, [facility] [place],, 20 ea. BOTTLE Active [id number] 2023 56 Pharmac y Data Transac tion Service Facilit y ARIPIPRAZOL E (aripiprazo le), 2 MG, TABLET, ORAL, [employer] [facility], 500 ea. BOTTLE Active [id number] 2023 180 Pharmac y Data Transac tion Service Facilit y ARIPIPRAZOL E (aripiprazo le), 2 MG, TABLET, ORAL, [employer] [facility], 500 ea. BOTTLE Active [id number] 2023 180 Pharmac y Data Transac tion Service Facilit y ARIPIPRAZOL E TAB TAKE 2MG BY MOUTH TWICE A DAY ORAL ACTIVE MARGIEJey Clemente 2021 [facility] ATIVAN (LORAZEPAM) , 0.5 MG, TABLET, ORAL, [employer], 100 ea. BOTTLE Active [id number] 2023 120 Pharmac y Data Transac tion Service Facilit y ATORVASTATI N CA 80MG TAB TAKE ONE-HALF TABLET BY MOUTH EVERY DAY ORAL ACTIVE MARGIEJey SB Clemente 2021 [facility] ATORVASTATI N CALCIUM (atorvastat in calcium), 40 MG, TABLET, ORAL, [employer] [facility]ARMA I, 1000 ea. BOTTLE Active [id number] 2023 90 Pharmac y Data Transac tion Service Facilit y ATORVASTATI N CALCIUM (atorvastat in calcium), 40 MG, TABLET, ORAL, [employer] [facility] I, 1000 ea. BOTTLE Active [id number] 2023 90 Pharmac y Data Transac tion Service Facilit y BACLOFEN (baclofen), 20 MG, TABLET, ORAL, [facility] 1000 ea. BOTTLE Active [id number] 2023 540 Pharmac y Data Transac tion Service Facilit y BACLOFEN (baclofen), 20 MG, TABLET, ORAL, [facility] 1000 ea. BOTTLE Active [id number] 2023 540 Pharmac y Data Transac tion Service Facilit y BACLOFEN 20MG TAB TAKE TWO TABLETS BY MOUTH THREE TIMES A DAY ORAL ACTIVE Jagdish BARRETT 2022 [facility] BUPROPION HCL 150MG 12HR TAB,SA TAKE ONE TABLET BY MOUTH TWICE A DAY ORAL ACTIVE Jey HANSON 2021 [facility] BUPROPION HCL SR (bupropion HCl), 150 MG, TAB SR 12H, ORAL, [facility] [facility], 60 ea. BOTTLE Active [id number] 2023 180 Pharmac y Data Transac [...] ORAL, [employer] [facility], 50 ea. BOTTLE Active [id number] 2023 70 Pharmac y Data Transac tion Service Facilit y DONEPEZIL HCL (DONEPEZIL HCL), 5 MG, TABLET, ORAL, [employer] 1000 ea. BOTTLE Cancele d [id number] : 2023 0 Pharmac y Data Transac tion Service Facilit y DONEPEZIL HCL (DONEPEZIL HCL), 5 MG, TABLET, ORAL, [employer] 1000 ea. BOTTLE Active [id number] 2023 90 Pharmac y Data Transac tion Service Facilit y DONEPEZIL HCL 10MG TAB TAKE ONE-HALF TABLET BY MOUTH EVERY DAY ORAL ACTIVE MARGIEJey SB Clemente 2021 [facility] DULOXETINE HCL (duloxetine HCl), 60 MG, CAPSULE DR, ORAL, [employer] 1000 ea. BOTTLE Active [id number] 2023 180 Pharmac y Data Transac tion Service Facilit y DULOXETINE HCL 30MG CAP,EC TAKE 2 CAPSULES BY MOUTH TWICE A DAY ORAL ACTIVE Jey HANSON 2021 [facility] FAMOTIDINE (famotidine ), 20 MG, TABLET, ORAL, [employer] 1000 ea. BOTTLE Active [id number] 2023 180 Pharmac y Data Transac tion Service Facilit y FAMOTIDINE 20MG TAB TAKE ONE TABLET BY MOUTH TWICE A DAY ORAL ACTIVE Jey HANSON 2021 [facility] FUROSEMIDE (furosemide ), 40 MG, TABLET, ORAL, [facility], 1000 ea. BOTTLE Active [id number] 2023 180 Pharmac y Data Transac tion Service Facilit y FUROSEMIDE (furosemide ), 40 MG, TABLET, ORAL, [facility], 1000 ea. BOTTLE Active [id number] 2023 180 Pharmac y Data Transac tion Service Facilit y FUROSEMIDE 40MG TAB TAKE ONE TABLET BY MOUTH TWICE A DAY ORAL ACTIVE Jey HANSON 2021 [facility] GABAPENTIN (gabapentin ), 400 MG, CAPSULE, ORAL, [employer] 500 ea. BOTTLE Active [id number] 2023 270 Pharmac y Data Transac tion Service Facilit y GABAPENTIN 400MG CAP TAKE 1 CAPSULE BY MOUTH THREE TIMES A DAY ORAL ACTIVE Jey HANSON 2021 [facility] LORAZEPAM (lorazepam) , 0.5 MG, TABLET, ORAL, [employer] [facility], 500 ea. BOTTLE Active [id number] 2023 120 Pharmac y Data Transac tion Service Facilit y LORAZEPAM (lorazepam) , 0.5 MG, TABLET, ORAL, [employer] [facility], 1000 ea. BOTTLE Active [id number] 2023 120 Pharmac y Data Transac tion Service Facilit y LORAZEPAM (lorazepam) , 0.5 MG, TABLET, ORAL, [employer] [facility], 1000 ea. BOTTLE Active [id number] 2023 120 Pharmac y Data Transac tion Service Facilit y LORAZEPAM (lorazepam) , 0.5 MG, TABLET, ORAL, [employer] [facility], 1000 ea. BOTTLE Active [id number] 2023 120 Pharmac y Data Transac tion Service Facilit y LORAZEPAM (lorazepam) , 0.5 MG, TABLET, ORAL, [employer] PHARMA, 500 ea. BOTTLE Active [id number] 2023 120 Pharmac y Data Transac tion Service Facilit y LORAZEPAM 0.5MG TAB TAKE ONE TABLET BY MOUTH THREE TIMES A DAY AND TAKE TWO TABLETS BY MOUTH AT BEDTIME ORAL ACTIVE Jagdish BARRETT N 2022 [facility] MILK OF MAGNESIA TAKE 30ML BY MOUTH EVERY DAY NEEDED ORAL ACTIVE GRANDIAC ONALAINAE M 2021 [facility] MULTIVITAMI NS CAP/TAB TAKE ONE TABLET BY MOUTH EVERY DAY ORAL ACTIVE GRANDIA,C ONALAINAE M 2021 [facility] CBTATI NALOXONE HCL 4MG/SPRAY SOLN,SPRAY, NASAL SPRAY 1 DOSE IN ONE NOSTRIL DIRECTED PRN NASAL ACTIVE Jagdish BARRETT N 2022 [facility] OXYCODONE HCL (OXYCODONE HCL), 10 MG, TABLET, ORAL, [employer] 100 ea. BOTTLE Active [id number] 2023 120 Pharmac y Data Transac tion Service Facilit y OXYCODONE HCL (OXYCODONE HCL), 10 MG, TABLET, ORAL, [employer] 100 ea. BOTTLE Active [id number] 2023 120 Pharmac y Data Transac tion Service Facilit y OXYCODONE HCL (OXYCODONE HCL), 10 MG, TABLET, ORAL, [employer] 100 ea. BOTTLE Active [id number] 2023 120 Pharmac y Data Transac tion Service Facilit y OXYCODONE HCL (OXYCODONE HCL), 10 MG, TABLET, ORAL, [employer] 100 ea. BOTTLE Active [id number] 2023 120 Pharmac y Data Transac tion Service Facilit y OXYCODONE HCL (OXYCODONE HCL), 10 MG, TABLET, ORAL, [employer] 100 ea. BOTTLE Active [id number] 2023 120 Pharmac y Data Transac tion Service Facilit y OXYCODONE HCL (OXYCODONE HCL), 10 MG, TABLET, ORAL, [employer] 100 ea. BOTTLE Active [id number] 2022 120 Pharmac y Data Transac tion Service Facilit y OXYCODONE HCL 5MG TAB TAKE TWO TABLETS BY MOUTH FOUR TIMES A DAY ORAL ACTIVE Jagdish BARRETT 2022 [facility] POTASSIUM CHLORIDE (potassium chloride), 10 MEQ, TAB ER PRT, ORAL, [employer], 100 ea. BOTTLE Active [id number] 2023 180 Pharmac y Data Transac tion Service Facilit y POTASSIUM CHLORIDE (potassium chloride), 10 MEQ, TAB ER PRT, ORAL, [employer], 100 ea. BOTTLE Active [id number] 2023 180 Pharmac y Data Transac tion Service Facilit y POTASSIUM CHLORIDE (potassium chloride), 20 MEQ, TAB ER PRT, ORAL, [employer], 100 ea. BOTTLE Active [id number] 3 2023 90 Pharmac y Data Transac tion Service Facilit y POTASSIUM CHLORIDE 20MEQ TAB,SA (DISPERSIBL E) TAKE ONE TABLET BY MOUTH TWICE A DAY ORAL ACTIVE Jey HANSON 2021 [facility] CBTAT[facility] SANTYL (collagenas e Clostridium histolyticu m), 250 UNIT/G, OINT. (G), TOPICAL, WHITLOCK&N/UNI LUIS, 30 g TUBE Cancele d [id number] : 2023 0 Pharmac y Data Transac tion Service Facilit y WARFARIN SODIUM (warfarin sodium), 5 MG, TABLET, ORAL, [employer] 1000 ea. BOTTLE Cancele d [id number] : 2022 0 Pharmac y Data Transac tion Service Facilit y WARFARIN SODIUM (WARFARIN SODIUM), 5 MG, TABLET, ORAL, [facility], 1000 ea. BOTTLE Active [id number] 2023 12 Pharmac y Data Transac tion Service Facilit y WARFARIN SODIUM (WARFARIN SODIUM), 5 MG, TABLET, ORAL, [employer], 1000 ea. BOTTLE Active [id number] 2023 40 Pharmac y Data Transac tion Service Facilit y WARFARIN SODIUM (WARFARIN SODIUM), 5 MG, TABLET, ORAL, [employer] [place], 1000 ea. BOTTLE Cancele d [id number] : 2022 0 Pharmac y Data Transac tion Service Facilit y WARFARIN SODIUM (warfarin sodium), 7.5 MG, TABLET, ORAL, [employer] [place], 100 ea. BOTTLE Active [id number] 2023 51 Pharmac y Data Transac tion Service Facilit y WARFARIN SODIUM (warfarin sodium), 7.5 MG, TABLET, ORAL, [employer] [place], 100 ea. BOTTLE Active [id number] 4 2023 78 Pharmac y Data Transac tion Service Facilit y WARFARIN TAB TAKE 5MG BY MOUTH SUN/THUR S AND TAKE 7.5MG BY MOUTH ALL OTHER DAYS ORAL ACTIVE Jagdish BARRETT 2022 [facility] Allergies, Adverse Reactions, Alerts Combined list of allergies from 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 It does not include entries that were removed or entered in error. Substance Category Reaction Severity Reaction type Status Date Reported Comments Source AMOXICILLIN Propensity to adverse reactions to drug (finding) Eruption active 2 [facility] METOLAZONE Propensity to adverse reactions to drug (finding) Itching active 2 [facility] MORPHINE Propensity to adverse reactions to drug (finding) Delirium active 2 [facility] PIPERACILLIN Propensity to adverse reactions to drug (finding) Eruption active 2 [facility] SULFA DRUGS Propensity to adverse reactions to drug (finding) Eruption active 2 [facility] TAZOBACTAM SODIUM Propensity to adverse reactions to drug (finding) Eruption active 2 [facility] Immunizations Combined list of available immunizations from the Department of [facility] and 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 Immunization Series Date Given Administered By Site Reaction Lot Number CVX Code Drug Or Assistant Status Comments Source INFLUENZA, UNSPECIFIED FORMULATION 2021 88 complet ed 's recall [facility] TD (ADULT), 5 LF TETANUS TOXOID, PRESERVATIVE FREE, ADSORBED 2021 113 complet ed [facility] INFLUENZA, UNSPECIFIED FORMULATION 2020 88 complet ed [facility] COVID-19 (PFIZER), MRNA, LNP-S, PF, 30 MCG/0.3 ML DOSE 3 2020 208 complet ed [facility] COVID-19 (PFIZER), MRNA, LNP-S, PF, 30 MCG/0.3 ML DOSE 2 2020 208 complet ed [facility] COVID-19 (PFIZER), MRNA, LNP-S, PF, 30 MCG/0.3 ML DOSE 1 2020 208 complet ed [facility] PNEUMOCOCCAL CONJUGATE PCV 13 2014 133 complet ed [facility] ZOSTER LIVE 2012 121 complet ed [facility] PNEUMOCOCCAL POLYSACCHARID E PPV23 2010 33 complet ed [facility] TDAP 2010 115 complet ed [facility] Results Combined list of recent chemistry, [...] Feb 05, 2023 03:10 PM Reporting Lab: [facility] [address] Performing Lab: [facility] [address] [facility] CYSTATIN C WITH EGFR CYSTATIN C AND GLOMERULAR FILTRATION RATE BY CYSTATIN C-BASED FORMULA PANEL - SERUM OR PLASMA 53 60 02/13 L Specimen Type: PLASMA No comment entered. Ordering Provider: ANKUSH BOWMAN Report Released Date/Time: Feb 05, 2023 03:10 PM Reporting Lab: [facility] [address] Performing Lab: [facility] [address] [place] [facility] BASIC METABOLI C PANEL+MG CREATININE [MASS/VOLU ME] IN SERUM OR PLASMA 0.7 mg/dL 0.7 - 1.2 02/13 Specimen Type: PLASMA No comment entered. Ordering Provider: ANKUSH BOWMAN Report Released Date/Time: Feb 05, 2023 03:10 PM Reporting Lab: [facility] [address] Performing Lab: [facility] [address] [place] [facility] BASIC METABOLI C PANEL+MG UREA NITROGEN [MASS/VOLU ME] IN SERUM OR PLASMA 15 mg/dL 8 - 02/13 Specimen Type: PLASMA No comment entered. Ordering Provider: ANKUSH BOWMAN Report Released Date/Time: Feb 05, 2023 03:10 PM Reporting Lab: [facility] [address] Performing Lab: [facility] [address] [place] [facility] BASIC METABOLI C PANEL+MG GLUCOSE [MASS/VOLU ME] IN SERUM OR PLASMA 140 mg/dL 70 - 100 02/13 H Specimen Type: PLASMA No comment entered. Ordering Provider: ANKUSH BOWMAN Report Released Date/Time: Feb 05, 2023 03:10 PM Reporting Lab: [facility] [address] Performing Lab: [facility] [address] [place] [facility] BASIC METABOLI C PANEL+MG SODIUM [MOLES/VOL UME] IN SERUM OR PLASMA 135 mmol/L 136 - 145 02/13 L Specimen Type: PLASMA No comment entered. Ordering Provider: ANKUSH BOWMAN Report Released Date/Time: Feb 05, 2023 03:10 PM Reporting Lab: [facility] [address] Performing Lab: [facility] [address] [place] [facility] BASIC METABOLI C PANEL+MG POTASSIUM [MOLES/VOL UME] IN SERUM OR PLASMA 4.0 mmol/L 3.5 - 5.1 02/13 Specimen Type: PLASMA No comment entered. Ordering Provider: ANKUSH BOWMAN Report Released Date/Time: Feb 05, 2023 03:10 PM Reporting Lab: [facility] [address] Performing Lab: [facility] [address] [place] [facility] BASIC METABOLI C PANEL+MG CHLORIDE [MOLES/VOL UME] IN SERUM OR PLASMA 99 mmol/L 98 - 107 02/13 Specimen Type: PLASMA No comment entered. Ordering Provider: ANKUSH BOWMAN Report Released Date/Time: Feb 05, 2023 03:10 PM Reporting Lab: [facility] [address] Performing Lab: [facility] [address] [place] [facility] BASIC METABOLI C PANEL+MG CARBON DIOXIDE, TOTAL [MOLES/VOL UME] IN SERUM OR PLASMA 29 mmol/L 22 - 29 02/13 Specimen Type: PLASMA No comment entered. Ordering Provider: ANKUSH BOWMAN Report Released Date/Time: Feb 05, 2023 03:10 PM Reporting Lab: [facility] [address] Performing Lab: [facility] [address] [place] [facility]IC METABOLI C PANEL+MG CALCIUM [MASS/VOLU ME] IN SERUM OR PLASMA 9.2 mg/dL 8.4 - 10.2 02/13 Specimen Type: PLASMA No comment entered. Ordering Provider: ANKUSH BOWMAN Report Released Date/Time: Feb 05, 2023 03:10 PM Reporting Lab: [facility] [address] Performing Lab: [facility] [address] [place] [facility] BASIC METABOLI C PANEL+MG MAGNESIUM [MASS/VOLU ME] IN SERUM OR PLASMA 2.0 mg/dL 1.6 - 2.6 02/13 Specimen Type: PLASMA No comment entered. Ordering Provider: ANKUSH BOWMAN Report Released Date/Time: Feb 05, 2023 03:10 PM Reporting Lab: [facility] [address] Performing Lab: [facility] [address] [place] [facility] BASIC METABOLI C PANEL+MG ANION GAP IN SERUM OR PLASMA 7 mmol/L 5 - 15 02/13 Specimen Type: PLASMA No comment entered. Ordering Provider: ANKUSH BOWMAN Report Released Date/Time: Feb 05, 2023 03:10 PM Reporting Lab: [facility] [address] Performing Lab: [facility] [address] [place] [facility]IC METABOLI C PANEL+MG GLOMERULAR FILTRATION RATE/1.73 SQ M.PREDICTE D [VOLUME RATE/AREA] IN SERUM, PLASMA OR BLOOD BY CREATININE -BASED FORMULA (CKD-EPI) >90 60 02/13 Specimen Type: PLASMA No comment entered. Ordering Provider: ANKUSH BOWMAN Report Released Date/Time: Feb 05, 2023 03:10 PM Reporting Lab: [facility] [address] Performing Lab: [facility] [address] [place] [facility] URINALYS IS COLOR OF URINE YELLOW 10/08 Specimen Type: URINE No comment entered. Ordering Provider: ANKUSH BOWMAN Report Released Date/Time: Sep 24, 2022 01:55 PM Reporting Lab: [facility] [address] Performing Lab: [facility] [address] [place] [facility] URINALYS IS SPECIFIC GRAVITY OF URINE 1.023 1.003 - 1.035 10/08 Specimen Type: URINE No comment entered. Ordering Provider: ANKUSH BOWMAN Report Released Date/Time: Sep 24, 2022 01:55 PM Reporting Lab: [facility] [address] Performing Lab: [facility] [address] [place] [facility] URINALYS IS BILIRUBIN. TOTAL [PRESENCE] IN URINE BY TEST STRIP NEGATIVE 10/08 Specimen Type: URINE No comment entered. Ordering Provider: ANKUSH BOWMAN Report Released Date/Time: Sep 24, 2022 01:55 PM Reporting Lab: [facility] [address] Performing Lab: [facility] [address] [place] [facility] URINALYS IS KETONES [MASS/VOLU ME] IN URINE BY TEST STRIP NEGATIVE 10/08 Specimen Type: URINE No comment entered. Ordering Provider: ANKUSH BOWMAN Report Released Date/Time: Sep 24, 2022 01:55 PM Reporting Lab: [facility] [address] Performing Lab: [facility] [address] [place] [facility] URINALYS IS GLUCOSE [MASS/VOLU ME] IN URINE BY TEST STRIP NEGATIVE mg/dL <30 - 30 10/08 Specimen Type: URINE No comment entered. Ordering Provider: ANKUSH BOWMAN Report Released Date/Time: Sep 24, 2022 01:55 PM Reporting Lab: [facility] [address] Performing Lab: [facility] [address] [facility] URINALYS IS PROTEIN [MASS/VOLU ME] IN URINE BY TEST STRIP 30 mg/dL <20 - 20 10/08 Specimen Type: URINE No comment entered. Ordering Provider: ANKUSH BOWMAN Report Released Date/Time: Sep 24, 2022 01:55 PM Reporting Lab: [facility] [address] Performing Lab: [facility] [address] [place] [facility] URINALYS IS PH OF URINE BY TEST STRIP 7.5 5.0 - 8.0 10/08 Specimen Type: URINE No comment entered. Ordering Provider: ANKUSH BOWMAN Report Released Date/Time: Sep 24, 2022 01:55 PM Reporting Lab: [facility] [address] Performing Lab: [facility] [address] [place] [facility] URINALYS IS LEUKOCYTES [#/AREA] IN URINE SEDIMENT BY MICROSCOPY HIGH POWER FIELD >180/[HP F] 0 - 7 10/08 H Specimen Type: URINE No comment entered. Ordering Provider: ANKUSH BOWMAN Report Released Date/Time: Sep 24, 2022 01:55 PM Reporting Lab: [facility] [address] Performing Lab: [facility] [address] [place] [facility] URINALYS IS BACTERIA [PRESENCE] IN URINE SEDIMENT BY LIGHT MICROSCOPY MANY 10/08 Specimen Type: URINE No comment entered. Ordering Provider: ANKUSH BOWMAN Report Released Date/Time: Sep 24, 2022 01:55 PM Reporting Lab: [facility] [address] Performing Lab: [facility] [address] [place] [facility] URINALYS IS ERYTHROCYT ES [#/AREA] IN URINE SEDIMENT BY MICROSCOPY HIGH POWER FIELD 33 /[HPF] 0 - 3 10/08 H Specimen Type: URINE No comment entered. Ordering Provider: ANKUSH BOWMAN Report Released Date/Time: Sep 24, 2022 01:55 PM Reporting Lab: [facility] [address] Performing Lab: [facility] [address] [facility] URINALYS IS APPEARANCE OF URINE EX.TURBI D 10/08 Specimen Type: URINE No comment entered. Ordering Provider: ANKUSH BOWMAN Report Released Date/Time: Sep 24, 2022 01:55 PM Reporting Lab: [facility] [address] Performing Lab: [facility] [address] [place] [facility] URINALYS IS EPITHELIAL CELLS.SQUA MOUS [#/AREA] IN URINE SEDIMENT BY MICROSCOPY HIGH POWER FIELD 1 /[HPF] 10/08 Specimen Type: URINE No comment entered. Ordering Provider: ANKUSH BOWMAN Report Released Date/Time: Sep 24, 2022 01:55 PM Reporting Lab: [facility] [address] Performing Lab: [facility] [address] [place] [facility] URINALYS IS HEMOGLOBIN [PRESENCE] IN URINE BY TEST STRIP 1+ 10/08 Specimen Type: URINE No comment entered. Ordering Provider: ANKUSH BOWMAN Report Released Date/Time: Sep 24, 2022 01:55 PM Reporting Lab: [facility] [address] Performing Lab: [facility] [address] [place] [facility] URINALYS IS NITRITE [PRESENCE] IN URINE BY TEST STRIP NEGATIVE 10/08 Specimen Type: URINE No comment entered. Ordering Provider: ANKUSH BOWMAN Report Released Date/Time: Sep 24, 2022 01:55 PM Reporting Lab: [facility] [address] Performing Lab: [facility] [address] [place] [facility] URINALYS IS LEUKOCYTE CLUMPS [#/VOLUME] IN URINE BY AUTOMATED COUNT PRESENT 10/08 Specimen Type: URINE No comment entered. Ordering Provider: ANKUSH BOWMAN Report Released Date/Time: Sep 24, 2022 01:55 PM Reporting Lab: [facility] [address] Performing Lab: [facility] [address] [place] [facility] URINALYS IS LEUKOCYTE ESTERASE [PRESENCE] IN URINE BY TEST STRIP 500 10/08 Specimen Type: URINE No comment entered. Ordering Provider: ANKUSH BOWMAN Report Released Date/Time: Sep 24, 2022 01:55 PM Reporting Lab: [facility] [address] Performing Lab: [facility] [address] [place] [facility] ALBUMIN ALBUMIN [MASS/VOLU ME] IN SERUM OR PLASMA 4.2 g/dL 3.5 - 5.2 10/08 Specimen Type: PLASMA No comment entered. Ordering Provider: ANKUSH BOWMAN Report Released Date/Time: Sep 24, 2022 01:55 PM Reporting Lab: [facility] [address] Performing Lab: [facility] [address] [place] [facility] PRE-ALBU MIN PREALBUMIN [MASS/VOLU ME] IN SERUM OR PLASMA 28.4 mg/dL 14.0 - 45.0 10/08 Specimen Type: SERUM No comment entered. Ordering Provider: ANKUSH BOWMAN Report Released Date/Time: Sep 24, 2022 01:55 PM Reporting Lab: [facility] [address] Performing Lab: [facility] [address] [place] [facility] COMPREHE NSIVE METABOLI C PANEL+MG CREATININE [MASS/VOLU ME] IN SERUM OR PLASMA 0.7 mg/dL 0.7 - 1.2 10/08 Specimen Type: PLASMA No comment entered. Ordering Provider: ANKUSH BOWMAN Report Released Date/Time: Sep 24, 2022 01:55 PM Reporting Lab: [facility] [address] Performing Lab: [facility] [address] [place] [facility] COMPREHE NSIVE METABOLI C PANEL+MG UREA NITROGEN [MASS/VOLU ME] IN SERUM OR PLASMA 16 mg/dL 8 - 26 10/08 Specimen Type: PLASMA No comment entered. Ordering Provider: ANKUSH BOWMAN Report Released Date/Time: Sep 24, 2022 01:55 PM Reporting Lab: [facility] [address] Performing Lab: [facility] [address] [place] [facility] COMPREHE NSIVE METABOLI C PANEL+MG GLUCOSE [MASS/VOLU ME] IN SERUM OR PLASMA 94 mg/dL 70 - 100 10/08 Specimen Type: PLASMA No comment entered. Ordering Provider: ANKUSH BOWMAN Report Released Date/Time: Sep 24, 2022 01:55 PM Reporting Lab: [facility] [address] Performing Lab: [facility] [address] [place] [facility] COMPREHE NSIVE METABOLI C PANEL+MG SODIUM [MOLES/VOL UME] IN SERUM OR PLASMA 138 mmol/L 136 - 145 10/08 Specimen Type: PLASMA No comment entered. Ordering Provider: ANKUSH BOWMAN Report Released Date/Time: Sep 24, 2022 01:55 PM Reporting Lab: [facility] [address] Performing Lab: [facility] [address] [place] [facility] COMPREHE NSIVE METABOLI C PANEL+MG POTASSIUM [MOLES/VOL UME] IN SERUM OR PLASMA 3.9 mmol/L 3.5 - 5.1 10/08 Specimen Type: PLASMA No comment entered. Ordering Provider: ANKUSH BOWMAN Report Released Date/Time: Sep 24, 2022 01:55 PM Reporting Lab: [facility] [address] Performing Lab: [facility] [address] [place] [facility] COMPREHE NSIVE METABOLI C PANEL+MG CHLORIDE [MOLES/VOL UME] IN SERUM OR PLASMA 101 mmol/L 98 - 107 10/08 Specimen Type: PLASMA No comment entered. Ordering Provider: ANKUSH BOWMAN Report Released Date/Time: Sep 24, 2022 01:55 PM Reporting Lab: [facility] [address] Performing Lab: [facility] [address] [place] [facility] COMPREHE NSIVE METABOLI C PANEL+MG CARBON DIOXIDE, TOTAL [MOLES/VOL UME] IN SERUM OR PLASMA 28 mmol/L 22 - 29 10/08 Specimen Type: PLASMA No comment entered. Ordering Provider: ANKUSH BOWMAN Report Released Date/Time: Sep 24, 2022 01:55 PM Reporting Lab: [facility] [address] Performing Lab: [facility] [address] [facility] COMPREHE NSIVE METABOLI C PANEL+MG CALCIUM [MASS/VOLU ME] IN SERUM OR PLASMA 9.7 mg/dL 8.4 - 10.2 10/08 Specimen Type: PLASMA No comment entered. Ordering Provider: ANKUSH BOWMAN Report Released Date/Time: Sep 24, 2022 01:55 PM Reporting Lab: [facility] [address] Performing Lab: [facility] [address] [place] [facility] COMPREHE NSIVE METABOLI C PANEL+MG PROTEIN [MASS/VOLU ME] IN SERUM OR PLASMA 7.6 g/dL 6.0 - 8.3 10/08 Specimen Type: PLASMA No comment entered. Ordering Provider: ANKUSH BOWMAN Report Released Date/Time: Sep 24, 2022 01:55 PM Reporting Lab: [facility] [address] Performing Lab: [facility] [address] [place] [facility] COMPREHE NSIVE METABOLI C PANEL+MG ALBUMIN [MASS/VOLU ME] IN SERUM OR PLASMA 4.2 g/dL 3.5 - 5.2 10/08 Specimen Type: PLASMA No comment entered. Ordering Provider: ANKUSH BOWMAN Report Released Date/Time: Sep 24, 2022 01:55 PM Reporting Lab: [facility] [address] Performing Lab: [facility] [address] [place] [facility] COMPREHE NSIVE METABOLI C PANEL+MG BILIRUBIN. TOTAL [MASS/VOLU ME] IN SERUM OR PLASMA 0.6 mg/dL 0.2 - 1.2 10/08 Specimen Type: PLASMA No comment entered. Ordering Provider: ANKUSH BOWMAN Report Released Date/Time: Sep 24, 2022 01:55 PM Reporting Lab: [facility] [address] Performing Lab: [facility] [address] [place] [facility] COMPREHE NSIVE METABOLI C PANEL+MG MAGNESIUM [MASS/VOLU ME] IN SERUM OR PLASMA 2.1 mg/dL 1.6 - 2.6 10/08 Specimen Type: PLASMA No comment entered. Ordering Provider: ANKUSH BOWMAN Report Released Date/Time: Sep 24, 2022 01:55 PM Reporting Lab: [facility] [address] Performing Lab: [facility] [address] [place] [facility] COMPREHE NSIVE METABOLI C PANEL+MG ANION GAP IN SERUM OR PLASMA 9 mmol/L 5 - 15 10/08 Specimen Type: PLASMA No comment entered. Ordering Provider: ANKUSH BOWMAN Report Released Date/Time: Sep 24, 2022 01:55 PM Reporting Lab: [facility] [address] Performing Lab: [facility] [address] [place] [facility] COMPREHE NSIVE METABOLI C PANEL+MG ALKALINE PHOSPHATAS E [ENZYMATIC ACTIVITY/V OLUME] IN SERUM OR PLASMA 96 U/L 40 - 150 10/08 Specimen Type: PLASMA No comment entered. Ordering Provider: ANKUSH BOWMAN Report Released Date/Time: Sep 24, 2022 01:55 PM Reporting Lab: [facility] [address] Performing Lab: [facility] [address] [place] [facility] COMPREHE NSIVE METABOLI C PANEL+MG ALANINE AMINOTRANS FERASE [ENZYMATIC ACTIVITY/V OLUME] IN SERUM OR PLASMA 29 U/L <55 - 55 10/08 Specimen Type: PLASMA No comment entered. Ordering Provider: ANKUSH BOWMAN Report Released Date/Time: Sep 24, 2022 01:55 PM Reporting Lab: [facility] [address] Performing Lab: [facility] [address] [facility] COMPREHE NSIVE METABOLI C PANEL+MG ASPARTATE AMINOTRANS FERASE [ENZYMATIC ACTIVITY/V OLUME] IN SERUM OR PLASMA 22 U/L <34 - 34 10/08 Specimen Type: PLASMA No comment entered. Ordering Provider: ANKUSH BOWMAN Report Released Date/Time: Sep 24, 2022 01:55 PM Reporting Lab: [facility] [address] Performing Lab: [facility] [address] [facility] COMPREHE NSIVE METABOLI C PANEL+MG GLOMERULAR FILTRATION RATE/1.73 SQ M.PREDICTE D [VOLUME RATE/AREA] IN SERUM, PLASMA OR BLOOD BY CREATININE -BASED FORMULA (CKD-EPI) >90 60 10/08 Specimen Type: PLASMA No comment entered. Ordering Provider: ANKUSH BOWMAN Report Released Date/Time: Sep 24, 2022 01:55 PM Reporting Lab: [facility] [address] Performing Lab: [facility] [address] [facility] CBC & DIFF LEUKOCYTES [#/VOLUME] IN BLOOD BY AUTOMATED COUNT 7.32 10*3/uL 4.0 - 11.0 10/08 Specimen Type: BLOOD Comment: Automated Differentia l Performed Ordering Provider: ANKUSH BOWMAN Report Released Date/Time: Sep 24, 2022 01:55 PM Reporting Lab: [facility] [address] Performing Lab: [facility] [address] [facility] CBC & DIFF ERYTHROCYT ES [#/VOLUME] IN BLOOD BY AUTOMATED COUNT 4.80 10*6/uL 4.6 - 6.2 10/08 Specimen Type: BLOOD Comment: Automated Differentia l Performed Ordering Provider: ANKUSH BOWMAN Report Released Date/Time: Sep 24, 2022 01:55 PM Reporting Lab: [facility] [address] Performing Lab: [facility] [address] [place] [facility] CBC & DIFF HEMOGLOBIN [MASS/VOLU ME] IN BLOOD 14.7 g/dL 13.5 - 17.9 10/08 Specimen Type: BLOOD Comment: Automated Differentia l Performed Ordering Provider: ANKUSH BOWMAN Report Released Date/Time: Sep 24, 2022 01:55 PM Reporting Lab: [facility] [address] Performing Lab: [facility] [address] [place] [facility] CBC & DIFF HEMATOCRIT [VOLUME FRACTION] OF BLOOD BY AUTOMATED COUNT 44.2 41 - 54 10/08 Specimen Type: BLOOD Comment: Automated Differentia l Performed Ordering Provider: ANKUSH BOWMAN Report Released Date/Time: Sep 24, 2022 01:55 PM Reporting Lab: [facility] [address] Performing Lab: [facility] [address] [place] [facility] CBC & DIFF MCV [ENTITIC VOLUME] BY AUTOMATED COUNT 92.1 fL 80 - 100 10/08 Specimen Type: BLOOD Comment: Automated Differentia l Performed Ordering Provider: ANKUSH BOWMAN Report Released Date/Time: Sep 24, 2022 01:55 PM Reporting Lab: [facility] [address] Performing Lab: [facility] [address] [place] [facility] CBC & DIFF MCH [ENTITIC MASS] BY AUTOMATED COUNT 30.6 pg 27 - 33 10/08 Specimen Type: BLOOD Comment: Automated Differentia l Performed Ordering Provider: ANKUSH BOWMAN Report Released Date/Time: Sep 24, 2022 01:55 PM Reporting Lab: [facility] [address] Performing Lab: [facility] [address] [place] [facility] CBC & DIFF MCHC [MASS/VOLU ME] BY AUTOMATED COUNT 33.3 g/dL 32.0 - 37.5 10/08 Specimen Type: BLOOD Comment: Automated Differentia l Performed Ordering Provider: ANKUSH BOWMAN Report Released Date/Time: Sep 24, 2022 01:55 PM Reporting Lab: [facility] [address] Performing Lab: [facility] [address] [place] [facility] CBC & DIFF PLATELETS [#/VOLUME] IN BLOOD BY AUTOMATED COUNT 144 10*3/uL 150 - 400 10/08 L Specimen Type: BLOOD Comment: Automated Differentia l Performed Ordering Provider: ANKUSH BOWMAN Report Released Date/Time: Sep 24, 2022 01:55 PM Reporting Lab: [facility] [address] Performing Lab: [facility] [address] [place] [facility] CBC & DIFF PLATELET MEAN VOLUME [ENTITIC VOLUME] IN BLOOD BY AUTOMATED COUNT 10.8 fL 7.4 - 10.4 10/08 H Specimen Type: BLOOD Comment: Automated Differentia l Performed Ordering Provider: ANKUSH BOWMAN Report Released Date/Time: Sep 24, 2022 01:55 PM Reporting Lab: [facility] [address] Performing Lab: [facility] [address] [place] [facility] CBC & DIFF NEUTROPHIL S/100 LEUKOCYTES IN BLOOD BY MANUAL COUNT 55.5 10/08 Specimen Type: BLOOD Comment: Automated Differentia l Performed Ordering Provider: ANKUSH BOWMAN Report Released Date/Time: Sep 24, 2022 01:55 PM Reporting Lab: [facility] [address] Performing Lab: [facility] [address] [place] [facility] CBC & DIFF LYMPHOCYTE S/100 LEUKOCYTES IN BLOOD BY MANUAL COUNT 31.4 10/08 Specimen Type: BLOOD Comment: Automated Differentia l Performed Ordering Provider: ANKUSH BOWMAN Report Released Date/Time: Sep 24, 2022 01:55 PM Reporting Lab: [facility] [address] Performing Lab: [facility] [address] [place] [facility] CBC & DIFF MONOCYTES/ 100 LEUKOCYTES IN BLOOD BY AUTOMATED COUNT 10.2 10/08 Specimen Type: BLOOD Comment: Automated Differentia l Performed Ordering Provider: ANKUSH BOWMAN Report Released Date/Time: Sep 24, 2022 01:55 PM Reporting Lab: [facility] [address] Performing Lab: [facility] [address] [place] [facility] CBC & DIFF EOSINOPHIL S/100 LEUKOCYTES IN BLOOD BY AUTOMATED COUNT 2.2 10/08 Specimen Type: BLOOD Comment: Automated Differentia l Performed Ordering Provider: ANKUSH BOWMAN Report Released Date/Time: Sep 24, 2022 01:55 PM Reporting Lab: [facility] [address] Performing Lab: [facility] [address] [place] [facility] CBC & DIFF BASOPHILS/ 100 LEUKOCYTES IN BLOOD BY MANUAL COUNT 0.4 10/08 Specimen Type: BLOOD Comment: Automated Differentia l Performed Ordering Provider: ANKUSH BOWMAN Report Released Date/Time: Sep 24, 2022 01:55 PM Reporting Lab: [facility] [address] Performing Lab: [facility] [address] [place] [facility] CBC & DIFF ERYTHROCYT E DISTRIBUTI ON WIDTH [RATIO] BY AUTOMATED COUNT 15.9 11.5 - 14.5 10/08 H Specimen Type: BLOOD Comment: Automated Differentia l Performed Ordering Provider: ANKUSH BOWMAN Report Released Date/Time: Sep 24, 2022 01:55 PM Reporting Lab: [facility] [address] Performing Lab: [facility] [address] [place] [facility] CBC & DIFF LYMPHOCYTE S [#/VOLUME] IN BLOOD BY AUTOMATED COUNT 2.30 10*3/uL 1.0 - 4.0 10/08 Specimen Type: BLOOD Comment: Automated Differentia l Performed Ordering Provider: ANKUSH BOWMAN Report Released Date/Time: Sep 24, 2022 01:55 PM Reporting Lab: [facility] [address] Performing Lab: [facility] [address] [place] [facility] CBC & DIFF MONOCYTES [#/VOLUME] IN BLOOD BY AUTOMATED COUNT 0.75 10*3/uL 0.1 - 1.0 10/08 Specimen Type: BLOOD Comment: Automated Differentia l Performed Ordering Provider: ANKUSH BOWMAN Report Released Date/Time: Sep 24, 2022 01:55 PM Reporting Lab: [facility] [address] Performing Lab: [facility] [address] [place] [facility] CBC & DIFF NEUTROPHIL S [#/VOLUME] IN BLOOD BY AUTOMATED COUNT 4.06 10*3/uL 2.0 - 7.7 10/08 Specimen Type: BLOOD Comment: Automated Differentia l Performed Ordering Provider: ANKUSH BOWMAN Report Released Date/Time: Sep 24, 2022 01:55 PM Reporting Lab: [facility] [address] Performing Lab: [facility] [address] [place] [facility] CBC & DIFF EOSINOPHIL S [#/VOLUME] IN BLOOD BY AUTOMATED COUNT 0.16 10*3/uL 0 - 0.5 10/08 Specimen Type: BLOOD Comment: Automated Differentia l Performed Ordering Provider: ANKUSH BOWMAN Report Released Date/Time: Sep 24, 2022 01:55 PM Reporting Lab: [facility] [address] Performing Lab: [facility] [address] [place] [facility] CBC & DIFF BASOPHILS [#/VOLUME] IN BLOOD BY AUTOMATED COUNT 0.03 10*3/uL 0 - 0.2 10/08 Specimen Type: BLOOD Comment: Automated Differentia l Performed Ordering Provider: ANKUSH BOWMAN Report Released Date/Time: Sep 24, 2022 01:55 PM Reporting Lab: [facility] [address] Performing Lab: [facility] [address] [place] [facility] CBC & DIFF IG(META,MY MALACHI,PRO) 0.3 10/08 Specimen Type: BLOOD Comment: Automated Differentia l Performed Ordering Provider: ANKUSH BOWMAN Report Released Date/Time: Sep 24, 2022 01:55 PM Reporting Lab: [facility] [address] Performing Lab: [facility] [address] [place] [facility] CBC & DIFF IMMATURE GRANULOCYT ES [PRESENCE] IN BLOOD BY AUTOMATED COUNT 0.02 10*3/uL 0 - 0.1 10/08 Specimen Type: BLOOD Comment: Automated Differentia l Performed Ordering Provider: ANKUSH BOWMAN Report Released Date/Time: Sep 24, 2022 01:55 PM Reporting Lab: [facility] [address] Performing Lab: [facility] [address] [place] [facility] CYSTATIN C WITH EGFR CYSTATIN C [MASS/VOLU ME] IN SERUM OR PLASMA 1.38 mg/L 0.51 - 1.05 10/08 H Specimen Type: PLASMA No comment entered. Ordering Provider: ANKUSH BOWMAN Report Released Date/Time: Sep 24, 2022 01:55 PM Reporting Lab: [facility] [address] Performing Lab: [facility] [address] [place] [facility] CYSTATIN C WITH EGFR CYSTATIN C AND GLOMERULAR FILTRATION RATE BY CYSTATIN-B ASED FORMULA PANEL - SERUM OR PLASMA 48 60 10/08 L Specimen Type: PLASMA No comment entered. Ordering Provider: ANKUSH BOWMAN Report Released Date/Time: Sep 24, 2022 01:55 PM Reporting Lab: [facility] [address] Performing Lab: [facility] [address] [place] [facility] VIT D 25-OH,TO ZAMZAM 25-HYDROXY VITAMIN D3 [MASS/VOLU ME] IN SERUM OR PLASMA 54 ng/mL 12 - 50 10/08 H Specimen Type: SERUM No comment entered. Ordering Provider: ANKUSH BOWMAN Report Released Date/Time: Sep 24, 2022 01:55 PM Reporting Lab: [facility] [address] Performing Lab: [facility] [address] [place] [facility] COMPREHE NSIVE METABOLI C PANEL+MG CREATININE [MASS/VOLU ME] IN SERUM OR PLASMA 0.7 mg/dL 0.7 - 1.2 05/28 Specimen Type: PLASMA No comment entered. Ordering Provider: GERMANIA HANSON Report Released Date/Time: May 28, 2022 03:06 PM Reporting Lab: [facility] [address] Performing Lab: [facility] [address] [facility] COMPREHE NSIVE METABOLI C PANEL+MG UREA NITROGEN [MASS/VOLU ME] IN SERUM OR PLASMA 13 mg/dL 8 - 26 05/28 Specimen Type: PLASMA No comment entered. Ordering Provider: GERMANIA HANSON Report Released Date/Time: May 28, 2022 03:06 PM Reporting Lab: [facility] [address] Performing Lab: [facility] [address] [facility] COMPREHE NSIVE METABOLI C PANEL+MG GLUCOSE [MASS/VOLU ME] IN SERUM OR PLASMA 98 mg/dL 74 - 100 05/28 Specimen Type: PLASMA No comment entered. Ordering Provider: GERMANIA HANSON Report Released Date/Time: May 28, 2022 03:06 PM Reporting Lab: [facility] [address] Performing Lab: [facility] [address] [facility] COMPREHE NSIVE METABOLI C PANEL+MG SODIUM [MOLES/VOL UME] IN SERUM OR PLASMA 138 mmol/L 136 - 145 05/28 Specimen Type: PLASMA No comment entered. Ordering Provider: GERMANIA HANSON Report Released Date/Time: May 28, 2022 03:06 PM Reporting Lab: [facility] [address] Performing Lab: [facility] [address] [facility] COMPREHE NSIVE METABOLI C PANEL+MG POTASSIUM [MOLES/VOL UME] IN SERUM OR PLASMA 4.4 mmol/L 3.5 - 5.1 05/28 Specimen Type: PLASMA No comment entered. Ordering Provider: GERMANIA HANSON Report Released Date/Time: May 28, 2022 03:06 PM Reporting Lab: [facility] [address] Performing Lab: [facility] [address] [facility] COMPREHE NSIVE METABOLI C PANEL+MG CHLORIDE [MOLES/VOL UME] IN SERUM OR PLASMA 102 mmol/L 98 - 107 05/28 Specimen Type: PLASMA No comment entered. Ordering Provider: GERMANIA HANSON Report Released Date/Time: May 28, 2022 03:06 PM Reporting Lab: [facility] [address] Performing Lab: [facility] [address] [facility] COMPREHE NSIVE METABOLI C PANEL+MG CARBON DIOXIDE, TOTAL [MOLES/VOL UME] IN SERUM OR PLASMA 28 mmol/L 22 - 29 05/28 Specimen Type: PLASMA No comment entered. Ordering Provider: GERMANIA HANSON Report Released Date/Time: May 28, 2022 03:06 PM Reporting Lab: [facility] [address] Performing Lab: [facility] [address] [facility] COMPREHE NSIVE METABOLI C PANEL+MG CALCIUM [MASS/VOLU ME] IN SERUM OR PLASMA 9.4 mg/dL 8.4 - 10.2 05/28 Specimen Type: PLASMA No comment entered. Ordering Provider: GERMANIA HANSON Report Released Date/Time: May 28, 2022 03:06 PM Reporting Lab: [facility] [address] Performing Lab: [facility] [address] [facility] COMPREHE NSIVE METABOLI C PANEL+MG PROTEIN [MASS/VOLU ME] IN SERUM OR PLASMA 7.6 g/dL 6.0 - 8.3 05/28 Specimen Type: PLASMA No comment entered. Ordering Provider: GERMANIA HANSON Report Released Date/Time: May 28, 2022 03:06 PM Reporting Lab: [facility] [address] Performing Lab: [facility] [address] [facility] COMPREHE NSIVE METABOLI C PANEL+MG ALBUMIN [MASS/VOLU ME] IN SERUM OR PLASMA 4.0 g/dL 3.5 - 5.2 05/28 Specimen Type: PLASMA No comment entered. Ordering Provider: GERMANIA HANSON Report Released Date/Time: May 28, 2022 03:06 PM Reporting Lab: [facility] [address] Performing Lab: [facility] [address] [facility] COMPREHE NSIVE METABOLI C PANEL+MG BILIRUBIN. TOTAL [MASS/VOLU ME] IN SERUM OR PLASMA 0.5 mg/dL 0.2 - 1.2 05/28 Specimen Type: PLASMA No comment entered. Ordering Provider: GERMANIA HANSON Report Released Date/Time: May 28, 2022 03:06 PM Reporting Lab: [facility] [address] Performing Lab: [facility] [address] [facility] COMPREHE NSIVE METABOLI C PANEL+MG MAGNESIUM [MASS/VOLU ME] IN SERUM OR PLASMA 2.1 mg/dL 1.6 - 2.6 05/28 Specimen Type: PLASMA No comment entered. Ordering Provider: GERMANIA HANSON Report Released Date/Time: May 28, 2022 03:06 PM Reporting Lab: [facility] [address] Performing Lab: [facility] [address] [facility] COMPREHE NSIVE METABOLI C PANEL+MG ANION GAP IN SERUM OR PLASMA 8 mmol/L 5 - 15 05/28 Specimen Type: PLASMA No comment entered. Ordering Provider: GERMANIA HANSON Report Released Date/Time: May 28, 2022 03:06 PM Reporting Lab: [facility] [address] Performing Lab: [facility] [address] [facility] COMPREHE NSIVE METABOLI C PANEL+MG ALKALINE PHOSPHATAS E [ENZYMATIC ACTIVITY/V OLUME] IN SERUM OR PLASMA 108 U/L 40 - 150 05/28 Specimen Type: PLASMA No comment entered. Ordering Provider: GERMANIA HANSON Report Released Date/Time: May 28, 2022 03:06 PM Reporting Lab: [facility] [address] Performing Lab: [facility] [address] [facility] COMPREHE NSIVE METABOLI C PANEL+MG ALANINE AMINOTRANS FERASE [ENZYMATIC ACTIVITY/V OLUME] IN SERUM OR PLASMA 27 U/L <55 - 55 05/28 Specimen Type: PLASMA No comment entered. Ordering Provider: GERMANIA HANSON Report Released Date/Time: May 28, 2022 03:06 PM Reporting Lab: [facility] [address] Performing Lab: [facility] [address] [facility] COMPREHE NSIVE METABOLI C PANEL+MG ASPARTATE AMINOTRANS FERASE [ENZYMATIC ACTIVITY/V OLUME] IN SERUM OR PLASMA 21 U/L <34 - 34 05/28 Specimen Type: PLASMA No comment entered. Ordering Provider: GERMANIA HANSON Report Released Date/Time: May 28, 2022 03:06 PM Reporting Lab: [facility] [address] Performing Lab: [facility] [address] [facility] COMPREHE NSIVE METABOLI C PANEL+MG GLOMERULAR FILTRATION RATE/1.73 SQ M.PREDICTE D [VOLUME RATE/AREA] IN SERUM, PLASMA OR BLOOD BY CREATININE -BASED FORMULA (CKD-EPI) >90 60 05/28 Specimen Type: PLASMA No comment entered. Ordering Provider: GERMANIA HANSON Report Released Date/Time: May 28, 2022 03:06 PM Reporting Lab: [facility] [address] Performing Lab: [facility] [address] [facility] Encounters Combined list of: 1) Encounters from Department of Veterans Affairs facilities going back up to thelast 18 months. 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 Location Location Details Encounter Type Encounter Number Reason For Visit Attending Provider ADM Date DC Date Status Disposition Source [facility] PRO PHONE CALL 5-10 MIN [id number] Diagnos is: ICD-10- CM Z73.6 Limitat ion of activit ies due to disabil ity<br/ > AVE HALEY 12/13 QUINTIN BARNH[facility] Outpatient Encounter [id number] 01/08 [facility] HC PRO PHONE CALL 21-30 MIN [id number] Diagnos is: ICD-10- CM G82.20 Paraple mary kay, unspeci fied
Hever CASTRO 01/08 [facility] Outpatient Encounter [id number] 01/09 [facility] DIABETIC MANAGEMENT PROGRAM, [id number] Diagnos is: ICD-10- CM G82.20 Paraple mary kay, unspeci fied
TIGIST BASSETT 01/30 [facility] Outpatient Encounter [id number] 02/05 [facility] MTMS BY PHARM ADDL 15 MIN [id number] [phone] Diagnos is: ICD-10- CM G82.20 Paraple mary kay, unspeci fied
MANPREET BARRETT 02/05 [facility] OT EVAL LOW COMPLEX 30 MIN [id number] [phone] Diagnos is: ICD-10- CM Z73.6 Limitat ion of activit ies due to disabil ity<br/ > Bryn PARDO 02/05 [facility] OFF/OP EST MAY X REQ PHY/QHP [id number] [phone] Diagnos is: ICD-10- CM G82.20 Paraple mary kay, unspeci fied
JOSUÉ ZAMORA 02/05 [facility] PSYCH DIAGNOSTIC EVALUATION [id number] [phone] Diagnos is: ICD-10- CM F32.A Depress ion, unspeci fied
BINU GAMEZ 02/05 [facility] OFFICE O/P EST MOD 30-39 MIN [phone] Diagnos is: ICD-10- CM G82.20 Paraple mary kay, unspeci fied
ME LOGAN BOWMAN 02/05 [facility] PSYCH DIAGNOSTIC EVALUATION [phone] Diagnos is: ICD-10- CM G82.20 Paraple mary kay, unspeci fied
CHIRCOP,AN DESIRE J 02/05 [facility] MEDICAL NUTRITION INDIV IN [phone] Diagnos is: ICD-10- CM Z71.3 Dietary addiction counselor ing and surveil payal<b r/> Katia ARCHER 02/05 [facility] ENTEROSTOM AL THERAPY BY A RE [phone] Diagnos is: ICD-10- CM Z43.3 Encount er for attenti on to colosto my
VIOLA YOON 02/08 [facility] OFFICE O/P EST HI 40-54 MIN [phone] Diagnos is: ICD-10- CM G82.20 Paraple mary kay, unspeci fied
ME LOGAN BOWMAN 02/13 [facility] WHEELCHAIR MNGMENT TRAINING [id number] Diagnos is: ICD-10- CM Z73.6 Limitat ion of activit ies due to disabil ity<br/ > BOUSLOG,RY AN P 02/13 [facility] Outpatient Encounter [id number] 02/19 [facility] HC PRO PHONE CALL 11-20 MIN [id number] Diagnos is: ICD-10- CM Z73.6 Limitat ion of activit ies due to disabil ity<br/ > BOUSLOG,RY AN P 04/23 [facility] [place] [facility] Outpatient Encounter [id number] 04/24 [place] [facility] [place] [facility] Outpatient Encounter [id number] 05/24 [facility] [place] [facility] OFF/OP EST MARCH X REQ PHY/QHP [id number] Diagnos is: ICD-10- CM G82.20 Paraple mary kay, unspeci fied
VIOLA YOON NDJagdish 05/28 [facility] [place] [facility] WHEELCHAIR MNGMENT TRAINING [id number] Diagnos is: ICD-10- CM Z73.6 Limitat ion of activit ies due to disabil ity<br/ > BOUSLOG,RY AN P 06/10 [facility] [place] [facility] Outpatient Encounter [id number] 10/28 [facility] [place] [facility] Outpatient Encounter [id number] 11/20 [facility] Social History Combined list of available smoking, tobacco, and other social history from 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 Social History Type Response Date Comment [facility] e Tobacco smoking status [facility] NEVER USED 05/28/20 22 SADAF TREVINO [facility] This section is an empty social history section. DoD Advance Directives List of completed, amended, or rescinded Advance Directives on record at Department of 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 An actual copy of the Directive is not included. Date Advance Directive Provider Source 02/05/2023 ADVANCE DIRECTIVE DISCUSSION GUSTAVO ABAD [facility]
--- OUTSIDE RECORDS SUMMARY | 2024-04-20 12:43 | XMS_ITS | Encounter Summary ---
Author Organization [facility] Address [address] [address] Care Team Providers Care Bulk Pallet Builder Name Role Phone Franklin Squires MD Primary Care Provider Encounter Details Date Type Department Care Team (Late st Contact Info) Description 09/07/2014 Correspondence [facility] Radiology [address] [place] [address] Radiology, Provider MRI SAFETY SHEET AND COMPATIBILITY [...] on filedocumented in this encounter Care Teams Bulk Pallet Builder Relationship Specialty Start Date End Date Franklin Squires MD [address] [place], [place] [address] [address] PCP - General Family Practice 03/08/16 documented as of this encounter
--- OUTSIDE RECORDS SUMMARY | 2024-04-20 12:43 | XMS_ITS | Encounter Summary ---
Author Organization [facility] [address] [address] Care Team Providers Care Tip Stretcher Name Role Phone Franklin Squires MD Primary Care Provider Encounter Details Date Type Department Care Team (Late st Contact Info) Description 02/05/2014 Correspondence [facility] Physical Therapy [address] [place] [address] Trudi Raymundo, PT [address] [place] [address] LETTER OF MEDICAL NECESSITY FOR A WHEELCHAIR [...] on filedocumented in this encounter Care Teams Tip Stretcher Relationship Specialty Start Date End Date Franklin Squires MD 100 [facility] [place] [address] PCP - General Family Practice 03/08/16 documented as of this encounter
--- OUTSIDE RECORDS SUMMARY | 2024-04-20 12:43 | XMS_ITS | Encounter Summary ---
Author Organization [facility] Address [address], [place] [address] Care Team Providers Care Manager Skilled Name Role Phone Franklin Squires MD Primary Care Provider [phone] Encounter Details Date Type Department Care Team (Late st Contact Info) Description 07/23/2013 [facility] 401 Interventional Pain Management 401 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
--- OUTSIDE RECORDS SUMMARY | 2024-04-20 12:43 | XMS_ITS | Encounter Summary ---
Author Organization [facility] Address [address], [place] [address] Care Team Providers Care Programs Director Name Role Phone Franklin Squires MD Primary Care Provider [phone] Encounter Details Date Type Department Care Team (Latest Contact Info) Description 06/04/2014 [facility] 401 Interventional Pain Management 401 [facility] [place] [address] Zelalem Cohen, DO [address] [place] [address] MEDICAID PT INFORMATION EMPI RECOVERY Social History [...] on filedocumented in this encounter Care Teams Programs Director Relationship Specialty Start Date End Date Franklin Squires MD 100 [facility] [address] PCP - General Family Practice 03/08/16 documented as of this encounter
--- OUTSIDE RECORDS SUMMARY | 2024-04-20 12:43 | XMS_ITS | Encounter Summary ---
Author Organization [facility] Address [address] [address] Care Team Providers Care Assembler Wire Group Name Role Phone Franklin Squires MD Primary Care Provider [phone] Encounter Details Date Type Department Care Team (Latest Contact Info) Description 12/11/2017 Correspondence Physiatry/Physical Medicine at [facility] 295 [facility] [place] [address] May Randle MD [address] [place] [address] [employer] Social History Tobacco Use [...] filedocumented in this encounter Care Teams Assembler Wire Group Relationship Specialty Start Date End Date Franklin Squires MD [address] [place] [address] [place] [address] PCP - General Family Practice 03/08/16 documented as of this encounter
--- OUTSIDE RECORDS SUMMARY | 2024-04-20 12:43 | XMS_ITS | Encounter Summary ---
Author Organization [facility] Address [address] [address] Care Team Providers Care Plastic Sewer Name Role Phone Franklin Squires MD Primary Care Provider [phone] Encounter Details Date Type Department Care Team (Late st Contact Info) Description 01/06/2016 Correspondence [facility] Radiology [address] [place] [address] Radiology, Provider MRI SAFETY SHEET AND COMPATIBILITY [...] on filedocumented in this encounter Care Teams Plastic Sewer Relationship Specialty Start Date End Date Franklin Squires MD [address] [place], [place] [address] [address] PCP - General Family Practice 03/08/16 documented as of this encounter
--- OUTSIDE RECORDS SUMMARY | 2024-04-20 12:43 | XMS_ITS | Encounter Summary ---
Author Organization [facility] Address [address], [place] [address] Care Team Providers Care Stockroom Supervisor Name Role Phone Franklin Squires MD [...] on filedocumented in this encounter Care Teams Stockroom Supervisor Relationship Specialty Start Date End Date Franklin Squires MD 100 [facility] [address] PCP - General Family Practice 03/08/16 documented as of this encounter
--- OUTSIDE RECORDS SUMMARY | 2024-04-20 12:43 | XMS_ITS | Encounter Summary ---
Author Organization [facility] [address] [address] Care Team Providers Care Contact Center Representative Name Role Phone Franklin Squires MD Primary Care Provider Encounter Details Date Type Department Care Team (Late st Contact Info) Description 11/10/2014 Correspondence [facility] Physical Therapy [address] [place] [address] Trudi Raymundo, PT [address] [place] [address] LETTER OF MEDICAL NECESSITY Social History Tobacco [...] in this encounter Care Teams Contact Center Representative Relationship Specialty Start Date End Date Franklin Squires MD 100 [facility] [place] [address] PCP - General Family Practice 03/08/16 documented as of this encounter
--- OUTSIDE RECORDS SUMMARY | 2024-04-20 12:43 | XMS_ITS | Encounter Summary ---
Author Organization [facility] [address], [place] [address] Care Team Providers Care Cathode Washer Name Role Phone Franklin Squires MD Primary Care Provider [phone] Encounter Details Date Type Department Care Team (Late st Contact Info) Description 10/26/2013 Correspondence [facility] Physical Therapy [address] [place] [address] Trudi Raymundo, PT [address] [place] [address] LETTER OF MEDICAL NECESSITY Social History Tobacco [...] Raymundo, PT - 10/26/2013 12:00 AM CST TRAINING INSTRUCTOR documented in this encounter Plan of Treatment Not on file documented as of this encounter Visit Diagnoses Not on filedocumented in this encounter Care Teams Cathode Washer Relationship Specialty Start Date End Date Franklin Squires MD 100 [facility] [address] PCP - General Family Practice 03/08/16 documented as of this encounter
--- OUTSIDE RECORDS SUMMARY | 2024-04-20 12:43 | XMS_ITS | Encounter Summary ---
Author Organization [facility] [address] [address] Care Team Providers Care Dental Office Assistant Name Role Phone Franklin Squires MD Primary Care Provider Encounter Details Date Type Department Care Team (Late st Contact Info) Description 07/08/2015 Correspondence [facility] Physical Therapy [address] [place] [address] Trudi Raymundo, PT [address] [place] [address] ADDENDUM FOR LETTER OF MEDICAL NECESSITY Social [...] filedocumented in this encounter Care Teams Dental Office Assistant Relationship Specialty Start Date End Date Franklin Squires MD 100 [facility] [address] PCP - General Family Practice 03/08/16 documented as of this encounter
--- OUTSIDE RECORDS SUMMARY | 2024-04-20 12:43 | XMS_ITS | Encounter Summary ---
Author Organization [facility] Address [address], [place] [address] Care Team Providers Care Corporate Meeting Planner Name Role Phone Franklin Squires MD Primary Care Provider Encounter Details Date Type Department Care Team (Late st Contact Info) Description 03/11/2014 [facility]ence [facility] 401 Interventional Pain Management 401 [place] [address] Zelalem Cohen, DO [address] [place] [address] EMPI Social History Tobacco Use Types Packs/Day [...] filedocumented in this encounter Care Teams Corporate Meeting Planner Relationship Specialty Start Date End Date Franklin Squires MD 100 [facility] [place] [address] PCP - General Family Practice 03/08/16 documented as of this encounter
--- OUTSIDE RECORDS SUMMARY | 2024-04-20 12:43 | XMS_ITS | Encounter Summary ---
Author Organization [facility] Address [address] [address] Care Team Providers Care Ham Clerk Name Role Phone Franklin Squires MD Primary Care Provider Encounter Details Date Type Department Care Team (Late st Contact Info) Description 08/20/2014 Outside Hospital External to [facility] Social History Tobacco Use [...] filedocumented in this encounter Care Teams Ham Clerk Relationship Specialty Start Date End Date Franklin Squires MD [address] [place], [place] [address] [address] PCP - General Family Practice 03/08/16 documented as of this encounter
--- OUTSIDE RECORDS SUMMARY | 2024-04-20 12:43 | XMS_ITS | Encounter Summary ---
Author Organization [facility] Address [address] [address] Care Team Providers Care Testing And Regulating Technician Name Role Phone Franklin Squires MD Primary Care Provider [phone] Encounter Details Date Type Department Care Team (Late st Contact Info) Description 06/11/2014 Correspondence [facility] 401 Physical Medicine 401 [facility] [place] [address] May Randle MD [address] [place] [address] [facility] Social History Tobacco Use Types [...] on filedocumented in this encounter Care Teams Testing And Regulating Technician Relationship Specialty Start Date End Date Franklin Squires MD 100 [facility] [place] [address] PCP - General Family Practice 03/08/16 documented as of this encounter
--- OUTSIDE RECORDS SUMMARY | 2024-04-20 12:43 | XMS_ITS | Encounter Summary ---
Author Organization [facility] Address [address], [place] [address] Care Team Providers Care Shipping And Receiving Material Handler Name Role Phone Franklin Squires MD Primary Care Provider Encounter Details Date Type Department Care Team (Late st Contact Info) Description 12/16/2013 Correspondence [facility] Radiology [address] [place] [address] Radiology, Provider MRI SAFETY SHEET AND COMPATIBILITY [...] Radiology, Provider - 12/16/2013 12:00 AM CST CLE DETAILER documented in this encounter Plan of Treatment Not on file documented as of this encounter Visit Diagnoses Not on filedocumented in this encounter Care Teams Shipping And Receiving Material Handler Relationship Specialty Start Date End Date Franklin Squires MD 100 [facility] [place] [address] PCP - General Family Practice 03/08/16 documented as of this encounter
--- OUTSIDE RECORDS SUMMARY | 2024-04-20 12:43 | XMS_ITS | Encounter Summary ---
Author Organization [facility] Address [address], [place] [address] Care Team Providers Care Senior Economist Name Role Phone Franklin Squires MD Primary Care Provider Encounter Details Date Type Department Care Team (Late st Contact Info) Description 11/23/2015 Correspondence External to External, [place] [address] LETTER [facility] Social History Tobacco Use Types [...] filedocumented in this encounter Care Teams Senior Economist Relationship Specialty Start Date End Date Franklin Squires MD [address] [place] [address] [place] [address] PCP - General Family Practice 03/08/16 documented as of this encounter
--- OUTSIDE RECORDS SUMMARY | 2024-04-20 12:43 | XMS_ITS | Encounter Summary ---
Author Organization [facility] Address [address] [address] Care Team Providers Care Recruiting Manager Name Role Phone Franklin Squires MD Primary Care Provider Encounter Details Date Type Department Care Team (Late st Contact Info) Description 02/09/2016 Correspondence [facility] 401 NeuroSurgery 401 [facility]. [place], [place] [id number] Jodi Aguila PA-C [address] [place] [address] PATIENT LIFT PRESCRIPTION Social History Tobacco Use [...] on filedocumented in this encounter Care Teams Recruiting Manager Relationship Specialty Start Date End Date Franklin Squires MD 100 [facility] [place] [id number] PCP - General Family Practice 03/08/16 documented as of this encounter
--- OUTSIDE RECORDS SUMMARY | 2024-04-20 12:43 | XMS_ITS | Encounter Summary ---
Author Organization [facility] Address [address], [place] [address] Care Team Providers Care Statistical Consultant Name Role Phone Franklin Squires MD Primary Care Provider Encounter Details Date Type Department Care Team (Late st Contact Info) Description 12/16/2014 Correspondence External to External, [place] [address] MEDICARE PLAN OF CARE RECERT Social History [...] on filedocumented in this encounter Care Teams Statistical Consultant Relationship Specialty Start Date End Date Franklin Squires MD [address] [place] [address] [facility] [place] [address] PCP - General Family Practice 03/08/16 documented as of this encounter
--- OUTSIDE RECORDS SUMMARY | 2024-04-20 12:43 | XMS_ITS | Encounter Summary ---
Author Organization [facility] Address [address], [place] [address] Care Team Providers Care Umbrella Frame Maker Name Role Phone Franklin Squires MD Primary Care Provider Encounter Details Date Type Department Care Team (Late st Contact Info) Description 04/24/2012 Correspondence [facility] Radiology [address] [place] [address] Radiology, Provider MRI SAFETY SHEET AND COMPATIBILITY [...] on filedocumented in this encounter Care Teams Umbrella Frame Maker Relationship Specialty Start Date End Date Franklin Squires MD 100 [facility] [place] [address] PCP - General Family Practice 03/08/16 documented as of this encounter
--- OUTSIDE RECORDS SUMMARY | 2024-04-20 12:43 | XMS_ITS | Encounter Summary ---
Author Organization [facility] Address [address] [address] Care Team Providers Care Industrial Fabric Cutter Name Role Phone Franklin Squires MD Primary Care Provider [phone] Encounter Details Date Type Department Care Team (Late st Contact Info) Description 06/07/2015 Correspondence [facility] Radiology [address] [place] [address] Radiology, Provider MRI SAFETY SHEET AND COMPATIBILITY [...] filedocumented in this encounter Care Teams Industrial Fabric Cutter Relationship Specialty Start Date End Date Franklin Squires MD [address] [place], [place] [address] [address] PCP - General Family Practice 03/08/16 documented as of this encounter
--- OUTSIDE RECORDS SUMMARY | 2024-04-20 12:43 | XMS_ITS | Encounter Summary ---
Author Organization [facility] Address [address], [place] [address] Care Team Providers Care Infant Room Teacher Name Role Phone Franklin Squires MD Primary Care Provider Encounter Details Date Type Department Care Team (Late st Contact Info) Description 05/04/2014 Correspondence [facility] 401 Physical Medicine 401 [facility] [place] [address] May Randle MD [address] [place] [address] LETTER OF MEDICAL NECESSITY FOR A WHEELCHAIR [...] on filedocumented in this encounter Care Teams Infant Room Teacher Relationship Specialty Start Date End Date Franklin Squires MD 100 [facility] [place] [address] PCP - General Family Practice 03/08/16 documented as of this encounter
--- OUTSIDE RECORDS SUMMARY | 2024-04-20 12:43 | XMS_ITS | Encounter Summary ---
Author Organization [facility] Address [address] [address] Care Team Providers Care Weight Control Lecturer Name Role Phone Franklin Squires MD Primary [...] on filedocumented in this encounter Care Teams Weight Control Lecturer Relationship Specialty Start Date End Date Franklin Squires MD 100 [facility] [address]LES [place] [address] PCP - General Family Practice 03/08/16 documented as of this encounter
--- OUTSIDE RECORDS SUMMARY | 2024-04-20 12:43 | XMS_ITS | Encounter Summary ---
Author Organization [facility] Address [address] [address] Care Team Providers Care Robotype Operator Name Role Phone Franklin Squires MD Primary Care Provider [phone] Encounter Details Date Type Department Care Team (Late st Contact Info) Description 09/17/2013 Correspondence External to External, [place] [address] EMPOWERMENT RULES Social History Tobacco Use Types [...] External, Provider - 09/17/2013 12:00 AM CST TER SMOKING PIPE documented in this encounter Plan of Treatment Not on file documented as of this encounter Visit Diagnoses Not on filedocumented in this encounter Care Teams Robotype Operator Relationship Specialty Start Date End Date Franklin Squires MD 100 [facility] [place] [address] PCP - General Family Practice 03/08/16 documented as of this encounter
--- OUTSIDE RECORDS SUMMARY | 2024-04-20 12:43 | XMS_ITS | Encounter Summary ---
Author Organization [facility] Address [address] [address] Care Team Providers Care Optical Lathe Operator Name Role Phone Franklin Squires MD [...] on filedocumented in this encounter Care Teams Optical Lathe Operator Relationship Specialty Start Date End Date Franklin Squires MD 100 [facility] [place] [address] PCP - General Family Practice 03/08/16 documented as of this encounter
--- OUTSIDE RECORDS SUMMARY | 2024-04-20 12:43 | XMS_ITS ---
Author Organization [employer] Address [address] [address] Care Team Providers Care Adoption Agent Name Role Phone Franklin Squires MD [...] 0 06/10/2014 History of anticoagulant therapy 02/17/2014 long-term current use of anticoagulant therapy 0 02/17/2014 [...] treatments are documented for this patient in [facility]. Treatments may have been administered in another system. Resolved Problems Problem Noted Date Diagnosed Date Resolved Date Gait abnormality 01/17/2012 02/09/2015 Back pain 01/17/2012 02/09/2015 Paraplegia 04/04/2011 02/09/2015 Osteoporosis 03/06/2011 02/09/2015 Urinary tract infection 12/24/200603/11
--- OUTSIDE RECORDS SUMMARY | 2024-04-20 12:43 | XMS_ITS | Encounter Summary ---
Author Organization [facility] Address [address], [place] [address] Care Team Providers Care Scale Mechanic Name Role Phone Franklin Squires MD Primary Care Provider [phone] Encounter Details Date Type Department Care Team (Late st Contact Info) Description 11/13/2012 Correspondence [facility] Radiology [address] [place] [address] Radiology, Provider MRI SAFETY SHEET AND COMPATIBILITY [...] RADIOLOGY, PROVIDER - 11/13/2012 12:00 AM CST EMS REQUIREMENTS PLANNER documented in this encounter Plan of Treatment Not on file documented as of this encounter Visit Diagnoses Not on filedocumented in this encounter Care Teams Scale Mechanic Relationship Specialty Start Date End Date Franklin Squires MD 100 [facility] [place] [address] PCP - General Family Practice 03/08/16 documented as of this encounter
--- OUTSIDE RECORDS SUMMARY | 2024-04-20 12:43 | XMS_ITS | Encounter Summary ---
Author Organization [facility] Address [address], [place] [address] Care Team Providers Care Automobile Damage Field Appraiser Name Role Phone Franklin Squires MD Primary Care Provider [phone] Encounter Details Date Type Department Care Team [...] filedocumented in this encounter Care Teams Automobile Damage Field Appraiser Relationship Specialty Start Date End Date Franklin Squires MD 100 [facility] [address] PCP - General Family Practice 03/08/16 documented as of this encounter
--- OUTSIDE RECORDS SUMMARY | 2024-04-20 12:43 | XMS_ITS | Encounter Summary ---
Author Organization [facility] Address [address] [address] Care Team Providers Care Leave Coordinator Name Role Phone Franklin Squires MD Primary Care Provider Encounter Details Date Type Department Care Team (Late st Contact Info) Description 01/08/2013 Scanned History External to Transferred Record, Provider [facility] Social History Tobacco Use Types [...] on filedocumented in this encounter Care Teams Leave Coordinator Relationship Specialty Start Date End Date Franklin Squires MD 100 [facility] [place] [address] PCP - General Family Practice 03/08/16 documented as of this encounter
--- OUTSIDE RECORDS SUMMARY | 2024-04-20 12:43 | XMS_ITS | Encounter Summary ---
Author Organization [facility] Address [address] [address] Care Team Providers Care Bordereau Clerk Name Role Phone Franklin Squires MD Primary Care Provider Encounter Details Date Type Department Care Team (Late st Contact Info) Description 12/14/2014 Correspondence [facility] 401 Physical Medicine 401 [facility] [place] [address] May Randle MD [address] [place] [address] DETAILED PRODUCT DESCRIPTION Social History Tobacco Use [...] on filedocumented in this encounter Care Teams Bordereau Clerk Relationship Specialty Start Date End Date Franklin Squires MD 100 [facility] [place] [address] PCP - General Family Practice 03/08/16 documented as of this encounter
--- OUTSIDE RECORDS SUMMARY | 2024-04-20 12:43 | XMS_ITS | Encounter Summary ---
Author Organization [facility] Address [address], [place] [address] Care Team Providers Care Body Worker Name Role Phone Franklin Squires MD Primary Care Provider Encounter Details Date Type Department Care Team (Late st Contact Info) Description 08/20/2014 Outside Hospital External to [facility] H/P Social History Tobacco Use [...] on filedocumented in this encounter Care Teams Body Worker Relationship Specialty Start Date End Date [facility] Squires MD [facility] [place] [address] PCP - General Family Practice 03/08/16 documented as of this encounter
--- OUTSIDE RECORDS SUMMARY | 2024-04-20 12:43 | XMS_ITS | Encounter Summary ---
[facility] Address [address] [address] Care Team Providers Care Personnel Manager Name Role Phone Franklin Squires MD Primary Care Provider Encounter Details Date Type Department Care Team (Late st Contact Info) Description 07/28/2014 Outside Hospital External to External, Provider No address [address] ER VISIT/TRANSFER Social History Tobacco Use [...] filedocumented in this encounter Care Teams Personnel Manager Relationship Specialty Start Date End Date Franklin Squires MD 100 [facility] [place] [address] PCP - General Family Practice 03/08/16 documented as of this encounter
--- OUTSIDE RECORDS SUMMARY | 2024-04-20 12:43 | XMS_ITS | Encounter Summary ---
Author Organization [facility] Address [address] [address] Care Team Providers Care Supervisor Phosphoric Acid Name Role Phone Franklin Squires MD Primary Care Provider Encounter Details Date Type Department Care Team (Late st Contact Info) Description 04/20/[address] [address] Radiology, Provider MRI SAFETY SHEET AND COMPATIBILITY [...] filedocumented in this encounter Care Teams Supervisor Phosphoric Acid Relationship Specialty Start Date End Date Franklin Squires MD 100 [facility] [place] [address] PCP - General Family Practice 03/08/16 documented as of this encounter
--- OUTSIDE RECORDS SUMMARY | 2024-04-20 12:43 | XMS_ITS | Encounter Summary ---
Author Organization [facility] Address [address] [address] Care Team Providers Care O And M Supervisor Name Role Phone Franklin Squires MD [...] on filedocumented in this encounter Care Teams O And M Supervisor Relationship Specialty Start Date End Date Franklin Squires MD 100 [facility] [place] [address] PCP - General Family Practice 03/08/16 documented as of this encounter
== END 2024-04-20 12:41 | disposition home or self-care (01) ==
LOC: WOUND 12:40
PROVIDERS: PCP Family Medicine; Visit Provider Nurse Practitioner Family
DX: L89.324 Pressure ulcer of left buttock, stage 4 (principal); E11.622 Type 2 diabetes mellitus with other skin ulcer; G82.50 Quadriplegia, unspecified
CPT/HCPCS: 11042; 97605

== ENCOUNTER 2024-04-27 12:47 | Outpatient (CLI) | payer MEDICARE, OTHER, SELFPAY ==
--- OUTSIDE RECORDS SUMMARY | 2024-04-27 12:50 | XMS_ITS | Encounter Summary ---
Author Organization [facility] Address [address], [place] [address] Care Team Providers Care Twisting Frame Fixer Name Role Phone Franklin Squires MD Primary Care Provider [phone] Encounter Details Date Type Department Care Team [...] on filedocumented in this encounter Care Teams Twisting Frame Fixer Relationship Specialty Start Date End Date Franklin Squires MD 100 [facility] [place] [address] PCP - General Family Practice 03/08/16 documented as of this encounter
--- OUTSIDE RECORDS SUMMARY | 2024-04-27 12:50 | XMS_ITS | Encounter Summary ---
Author Organization [facility] Address [address] [address] Care Team Providers Care Pianos And Organs Salesperson Name Role Phone Franklin Squires MD Primary Care Provider [phone] Encounter Details Date Type Department Care Team (Late st Contact Info) Description 01/06/2016 Correspondence [facility] Radiology [address] [place] [address] Radiology, Provider MRI SAFETY SHEET AND COMPATIBILITY [...] on filedocumented in this encounter Care Teams Pianos And Organs Salesperson Relationship Specialty Start Date End Date Franklin Squires MD [address] [place], [place] [address] [address] PCP - General Family Practice 03/08/16 documented as of this encounter
--- OUTSIDE RECORDS SUMMARY | 2024-04-27 12:50 | XMS_ITS ---
Author Organization [employer] Address [address] [address] Care Team Providers Care Home Care And Home Health Aides Teacher Name Role Phone Franklin Squires MD [...] treatments are documented for this patient in [facility]. Treatments may have been administered in another system. Resolved Problems Problem Noted Date Diagnosed Date Resolved Date Gait abnormality 01/17/2012 02/09/2015 Back pain 01/17/2012 02/09/2015 Paraplegia 04/04/2011 02/09/2015 Osteoporosis 03/06/2011 02/09/2015 Urinary tract infection 12/24/200603/11
--- OUTSIDE RECORDS SUMMARY | 2024-04-27 12:50 | XMS_ITS | Encounter Summary ---
Author Organization [facility] Address [address] [address] Care Team Providers Care Development Trainer Name Role Phone Franklin Squires MD [...] on filedocumented in this encounter Care Teams Development Trainer Relationship Specialty Start Date End Date Franklin Squires MD 100 [facility] [place] [address] PCP - General Family Practice 03/08/16 documented as of this encounter
--- OUTSIDE RECORDS SUMMARY | 2024-04-27 12:50 | XMS_ITS | Clinical Summary ---
Author Organization [facility] Address [address] [place] [address] Care Team Providers Care Township Clerk Name Role Phone Franklin Squires MD Primary Care Provider [phone] Source Comments You are receiving this document [...] for each transition of care or referral. 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 current use of anticoagulant therapy 0 02/17/2014 [...] Comments Blood Pressure 120/63 01/18/2022 12:59 PM DETECTOR CAR OPERATOR Pulse 87 01/18/2022 12:59 PM DETECTOR CAR OPERATOR Temperature 36.3 ??C (97.4 ??F) 01/18/2022 [...] this topic Medical Devices Implanted Type Area Sports Therapist Device Identifier Shelf Expiration Date Model / Serial / Lot [id number] 4ml Tisseel Explanted:(Roosevelt ntity not on file) BIOLOGIC N/A: NECK Lynne Fenwall 09/10/2011 [id number] / [id number] / [id number] Description:posterior Cath Intrathecal Indura - [id number] Implanted:Qty: 1 on 05/09/2010 at [facility] DEVICE Right: LUMBAR SPINE [employer] 01/18/2012 8709 / N/A / [id number] 5 Cath Intrathecal Indura - [id number] Implanted:Qty: 1 on 05/29/2010 at [facility] DEVICE Heal[employer] 8709 / / Scr Indira Conic 7.3x80 - [id number] Implanted:Qty: 1 on 03/13/2011 at [facility] DEVICE Right: FEMUR DISTAL [employer] [place] 02.207.28 0 / NONE / NONE Plt Lcp Cndl Rt 4.5x170 6h - [id number] Implanted:Qty: 1 on 03/13/2011 at [facility] DEVICE Right: FEMUR DISTAL [employer] [place] 222.656 / NONE / NONE Description:6 hole 170mm rig ht 4.5mm lcp condylar plate Scr Didier Ss Sftp 4.5x40 - [id number] Implanted:Qty: 1 on 03/13/2011 at [facility] DEVICE Left: FEMUR DISTAL [employer] [place] 214.840 / NONE / NONE Scr Didier Ss Sftp 4.5x50 - [id number] Implanted:Qty: 1 on 03/13/2011 at [facility] DEVICE Left: FEMUR DISTAL [employer] [place] 214.850 / NONE / NONE Scr Indira Lk 5.0x80 - [id number] Implanted:Qty: 2 on 03/13/2011 at [facility] DEVICE Left: FEMUR DISTAL [employer] [place] 02.205.08 0 / NONE / NONE Scr Indira Lk 5.0x85 - [id number] Implanted:Qty: 2 on 03/13/2011 at [facility] DEVICE Left: FEMUR DISTAL [employer] [place] 02.205.08 5 / NONE / NONE Scr Lk Sftp T25 5.0x50 - [id number] Implanted:Qty: 1 on 03/13/2011 at [facility] DEVICE Left: FEMUR DISTAL [employer] [place] 212.219 / NONE / NONE Scr Lk Sftp T25 5.0x60 - [id number] Implanted:Qty: 1 on 03/13/2011 at [facility] DEVICE Left: FEMUR DISTAL [employer] [place] 212.221 / NONE / NONE Scr Indira Conic 7.3x85 - [id number] Implanted:Qty: 1 on 03/13/2011 at [facility] DEVICE Left: FEMUR DISTAL [employer] [place] 02.207.28 5 / NONE / NONE Plt Lcp Cndl Lt 4.5x170 6h - [id number] Implanted:Qty: 1 on 03/13/2011 at [facility] DEVICE Left: FEMUR DISTAL [employer] [place] 222.657 / NONE / NONE Description:6 hole 170mmleng th left 4.5mm lcp condylar plate. Scr Didier Sftp 3.5x60 F-Thrd - [id number] Implanted:Qty: 1 on 03/13/2011 at [facility] DEVICE Left: TIBIA PROXIMAL [employer] [place] 204.860 / NONE / NONE Scr Star Lk Sftp 3.5x32 - [id number] Implanted:Qty: 1 on 03/13/2011 at [facility] DEVICE Left: TIBIA PROXIMAL [employer] [place] 212.112 / NONE / NONE Scr Star Lk Sftp 3.5x55 - [id number] Implanted:Qty: 2 on 03/13/2011 at [facility] DEVICE Left: TIBIA PROXIMAL [employer] [place] 212.123 / NONE / NONE Scr Star Lk Sftp 3.5x60 - [id number] Implanted:Qty: 2 on 03/13/2011 at [facility] DEVICE Left: TIBIA PROXIMAL [employer] [place] 212.124 / NONE / NONE Plt Lcp M/Prox Lt 3.5x94 4h - [id number] Implanted:Qty: 1 on 03/13/2011 at [facility] DEVICE Left: TIBIA PROXIMAL [employer] [place] 239.955 / NONE / NONE Scr Didier Ss Sftp 4.5x36 - [id number] Implanted:Qty: 1 on 03/13/2011 at [facility] DEVICE Right: FEMUR DISTAL [employer] [place] 214.836 / NONE / NONE Scr Didier Ss Sftp 4.5x44 - [id number] Implanted:Qty: 1 on 03/13/2011 at [facility] DEVICE Right: FEMUR DISTAL [employer] [place] 214.844 / NONE / NONE Scr Indira Lk 5.0x75 - [id number] Implanted:Qty: 1 on 03/13/2011 at [facility] DEVICE Right: FEMUR DISTAL [employer] [place] 02.205.07 5 / NONE / NONE Scr Indira Lk 5.0x85 - [id number] Implanted:Qty: 2 on 03/13/2011 at [facility] DEVICE Right: FEMUR DISTAL [employer] [place] 02.205.08 5 / NONE / NONE Scr Lk Sftp T25 5.0x44 - [id number] Implanted:Qty: 1 on 03/13/2011 at [facility] DEVICE Right: FEMUR DISTAL [employer] [place] 212.216 / NONE / NONE Scr Lk Sftp T25 5.0x65 - [id number] Implanted:Qty: 1 on 03/13/2011 at [facility] DEVICE Right: FEMUR DISTAL [employer] [place] 212.222 / NONE / NONE Plt Lp T Ti Str 4h - [id number] Implanted:Qty: 3 on 07/28/2014 by Cooper Shelley MD at [facility] DEVICE Right: SKULL [employer] [place] 421.504 / / Scr Matrix Sfdr 4mm - [id number] Implanted:Qty: 6 on 07/28/2014 by Cooper Shelley MD at [facility] DEVICE Right: SKULL [employer] [place] 04.503.10 4.01 / / Lead Linear 3-4 8 Contact 50cm - [id number] Implanted:Qty: 1 on 03/08/2016 by Zelalem Cohen DO at [facility] DEVICE N/A: OTHER-SEE DESCRIPTION [employer] [place] [facility] 09/10/2017 [id number] 2500 / / [id number] Description:LUMBAR Lead Linear 3-4 8 Contact 50cm - [id number] Implanted:Qty: 1 on 03/08/2016 by Zelalem Cohen DO at [facility] DEVICE N/A: OTHER-SEE DESCRIPTION [employer] [place] [facility] 09/10/2017 [id number] 2500 / / [id number] Description:LUMBAR Lead Linear 3-4 8 Contact 50cm - [id number] Implanted:Qty: 1 on 03/08/2016 by Zelalem Cohen DO at [facility] DEVICE N/A: OTHER-SEE DESCRIPTION [employer] [place] [facility] 09/10/2017 [id number] 2500 / / [id number] Description:LUMBAR Lead Linear 3-4 8 Contact 50cm - [id number] Implanted:Qty: 1 on 03/08/2016 by Zelalem Cohen DO at [facility] DEVICE N/A: OTHER-SEE DESCRIPTION [employer] [place] [facility] 09/10/2017 [id number] 2500 / / [id number] Description:LUMBAR Lead Linear 3-4 8 Contact 50cm - [id number] Implanted:Qty: 1 on 05/24/2016 by Zelalem Cohen DO at [facility] DEVICE N/A: SPINE LUMBAR POSTERIOR [employer] [place] [facility] 01/31/2018 [id number] 2500 / [id number] / Lead Linear 3-4 8 Contact 50cm - [id number] Implanted:Qty: 1 on 05/24/2016 by Zelalem Cohen DO at [facility] DEVICE N/A: SPINE LUMBAR POSTERIOR [employer] [place] [facility] 04/26/2018 [id number] 2500 / [id number] / Lead Linear 3-4 8 Contact 50cm - [id number] Implanted:Qty: 1 on 05/24/2016 by Zelalem Cohen DO at [facility] DEVICE N/A: SPINE LUMBAR POSTERIOR [employer] [place] [facility] 04/26/2018 [id number] 2500 / [id number] / Lead Linear 3-4 8 Contact 50cm - [id number] Implanted:Qty: 1 on 05/24/2016 by Zelalem Cohen DO at [facility] DEVICE N/A: SPINE LUMBAR POSTERIOR [employer] [place] [facility] 04/26/2018 [id number] 2500 / [id number] / Generator Pulse Spectra - [id number] Implanted:Qty: 1 on 05/24/2016 by Zelalem Cohen DO at [facility] DEVICE N/A: SPINE LUMBAR POSTERIOR [employer] [place] [facility] 05/08/2018 [id number] / [id number] / [id number] Howard Ran - [id number] Implanted:Qty: 1 on 05/24/2016 by Zelalem Cohen DO at [facility] DEVICE N/A: SPINE LUMBAR POSTERIOR [employer] [place] [facility] 05/02/2018 [id number] 60 / / [id number] Howard Ran - [id number] Implanted:Qty: 1 on 05/24/2016 by Zelalem Cohen DO at [facility] DEVICE N/A: SPINE LUMBAR POSTERIOR [employer] [place] [facility] 02/28/2018 [id number] 60 / / [id number] Procedures Procedure Name Priority Date/Time Associated Diagnosis Comments CREATININE/GFR, WB POC Routine 01/06/2016 12:04 PM DETECTOR CAR OPERATOR Back pain, 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 HGB A1C Routine 07/29/2014 3:19 AM CDT from Last 3 Months or Most Recently Relevant to Health Maintenance Results * CREATININE/GFR, WB POC (01/06/2016 12:04 PM DETECTOR CAR OPERATOR) Creat Whole Blood 0.9 0.66 - 1.25 mg/dl [facility] GFR, Estimated >60 >60 ml/min/1.7 3m2 [facility] GFR, Est., If Black >60 >60 ml/min/1.7 3m2 [facility] 01/06/2016 12:0 4 PM DETECTOR CAR OPERATOR 01/06/2016 12:21 PM DETECTOR CAR OPERATOR Trae Blair MD LAB_[facility] [phone] * (ABNORMAL) HGB A1C (07/29/2014 3:19 AM CDT) Hgb A1c 6.4(H) 4.3 - 6.1 % [facility] Comment: The usual A1C goal for people with diabetes, age 18-75, is <8.0%. Physicians may recommend a higher or lower goal for specific individuals. 07/29/2014 3:19 AM CDT 07/29/2014 3:22 AM CDT Critical access hospital - 07/29/2014 12:53 PM CDT Performed at [facility], [address] ??[address] [place] Wei PA-C LAB_[address] [address] from Last 3 Months or Most Recently [...] 5:44 PM 07/28/2014 6:50 PM Care Teams Township Clerk Relationship Specialty Start Date End Date Franklin Squires MD 100 [facility] [place] [address] PCP - General Family Practice 03/08/16
--- OUTSIDE RECORDS SUMMARY | 2024-04-27 12:50 | XMS_ITS | Encounter Summary ---
Author Organization [facility] Address [address] [address] Care Team Providers Care Ward Attendant Name Role Phone Franklin Squires MD Primary Care Provider Encounter Details Date Type Department Care Team (Late st Contact Info) Description 02/09/2016 Correspondence Specialty [facility] 401 NeuroSurgery 401 [facility] [place], [place] [id number] Jodi Aguila PA-C [address] [place] [address] PATIENT LIFT PRESCRIPTION Social History Tobacco Use [...] filedocumented in this encounter Care Teams Ward Attendant Relationship Specialty Start Date End Date Franklin Squires MD 100 [facility] [place] [id number] PCP - General Family Practice 03/08/16 documented as of this encounter
--- OUTSIDE RECORDS SUMMARY | 2024-04-27 12:50 | XMS_ITS | Encounter Summary ---
Author Organization [facility] [address], [place] [address] Care Team Providers Care Mems Process Engineer Name Role Phone Franklin Squires MD Primary Care Provider Encounter Details Date Type Department Care Team (Late st Contact Info) Description 07/08/2015 Correspondence [facility] Physical Therapy [address] [place] [address] Trudi Raymundo, PT [address] [place] [address] ADDENDUM FOR LETTER OF MEDICAL NECESSITY Social [...] on filedocumented in this encounter Care Teams Mems Process Engineer Relationship Specialty Start Date End Date Franklin Squires MD 100 [facility] [place] [address] PCP - General Family Practice 03/08/16 documented as of this encounter
--- OUTSIDE RECORDS SUMMARY | 2024-04-27 12:50 | XMS_ITS | Encounter Summary ---
Author Organization [facility] Address [address], [place] [address] Care Team Providers Care Lead Technologist In Cytogenetics Name Role Phone Franklin Squires MD Primary Care Provider [phone] Encounter Details Date Type Department Care Team (Latest Contact Info) Description 12/11/2017 Correspondence Physiatry/Physical Medicine at [facility] [address] [facility] [place] [address] May Randle MD [address] [place] [address] [employer] Social History Tobacco Use [...] on filedocumented in this encounter Care Teams Lead Technologist In Cytogenetics Relationship Specialty Start Date End Date Franklin Squires MD [address] [place] [address] [place] [address] PCP - General Family Practice 03/08/16 documented as of this encounter
--- OUTSIDE RECORDS SUMMARY | 2024-04-27 12:50 | XMS_ITS | Clinical Summary ---
Author Organization [facility] Address [place], [place] [address] Care Team Providers Care City Recorder Name Role Phone Zelalem Cohen MD Unavailable May Randle MD Unavailable [phone] Franklin Squires MD Primary Care Provider Fred CraftW Unavailable [phone] Diane Charles MD Unavailable [phone] Julia Ware RN Unavailable [phone] Allergies Active Allergy Reactions Criticality Noted Date [...] bedIndications:Non-heal ing surgical wound, subsequent encounter Drive [employer] 8 inch low loss mattress and 1/2 rails. Semi-electric bed. Length of need 6 weeks. Bed melter caster:no 1 unit 018 Active acetaminophen (TYLENOL EXTRA [...] 60mm, Cut-to-Fit 01/16 - 2 11/18. Item #[id number]. 1 Each 11 021 Active baclofen (LIORESAL) [...] once daily. 90 Tablet 3 024 Active donepeziL (ARICEPT) 5 mg tabletIndications:Confu [...] A DAY 180 Tablet 1 024 Active Additional Information Patient taking differently:40 mg OralQ AM, Reported on 04/03/2024 L.acidoph/B.animalis/B. longum (FLORAJEN DIGESTION ORAL) Take 1 Capsule by mouth once daily. Active oxyCODONE 10 mg tabletIndications:Chron ic pain syndrome Take 1 Tablet (10 mg) by mouth every 6 hours. 120 Tablet 024 Active gabapentin (NEURONTIN) 400 mg capsuleIndications:Gay re back pain Take 1 Capsule (400 mg) by mouth three times daily. 270 Capsule 3 024 Active furosemide (LASIX) 40 mg tabletIndications:Bilat eral lower extremity edema Take 1 Tablet (40 mg) by mouth two times daily. 180 Tablet 3 023 2023 Discontinued gabapentin (NEURONTIN) 400 mg capsuleIndications:Gay re back pain TAKE 1 CAPSULE THREE TIMES A DAY 270 Capsule 024 2023 Discontinued(R eorder (E-cancel not sent)) oxyCODONE 10 mg tabletIndications:Chron ic pain syndrome TAKE 1 TABLET BY MOUTH EVERY 6 HOURS 120 Tablet 024 2023 Discontinued(R eorder (E-cancel not sent)) gabapentin (NEURONTIN) 400 mg capsuleIndications:Gay re back pain Take 1 Capsule (400 mg) by mouth three times daily. 270 Capsule 3 024 2023 Discontinued(* Availability/F ormulary change/Cost of medication) Active Problems Problem Noted Date Diagnosed Date [...] Date Resolved Date Soft tissue infection 10/22/20232023 [facility] current use of anticoagulant 06/20/2023 01/08/2024 Cellulitis of scrotum 05/08/20232022 UTI (urinary tract infection) 05/08/2023 06/20/2023 Quadriplegia, unspecified 10/23/2022 Continuous opioid dependence 07/01/2022 08/20/2022 Urinary tract infection asso ciated with indwelling urethral catheter 10/05/2021 06/20/2023 Hypertensive urgency 10/04/2021 023 [facility] 2 [facility] 01/06/2021 02/14/2024 [...] encephalopathy 04/09/[address] 04/09/2019 2 Neck pain 04/09/2019 02/14/2024 Hyperglycemia 01/15/2018 06/20/2023 [...] for chronic back pain. Neurogenic bladder, NOS 11/04/2011/05/2016 Peripheral edema 06/09/2010 09/25/2016 Deep phlebothrombosis, antep artum, with delivery 04/16/2007 10/01/2007 Overview: S/P IVC Filter [facility] (current) use of anticoagulants 02/19/2007 09/27/2008 Depressive disorder, not elsewhere classified 02/14/20 07 01/15/2018 Abnormality of gait 12/24/2006 09/27/20 08 Urinary tract infection, site not specified 12/24/2006 01/15/2018 BENIGN ESSENTIAL HYPERTENSION 12/24/2006 04/17/2016 Overview: borderline Necrotizing fasciitis 2018 Type 2 diabetes mellitus Encounters Date Type Department Care Team Description 04/24/2024 2:49 PM CDT - 04/24/2024 2:50 PM CDT Emergency [facility] [address] [place] [address] Discharge Disposition: Against Medical Advice or Discontinued Care 04/24/2024 Travel 04/24/2024 Anticoagulation (warfarin) [address] [phone] [place] [address] Inr Clinic In [facility] Anticoagulation (Acelis) 04/21/[address] [phone] Franklin Squires MD Refill Request (Gabapentin) 04/20/[address] [phone] Franklin Squires MD Form (Physician Orders. Urinary Catheter - Suprapubic. ) 04/20/[address] [phone] Franklin Squires MD Refill Request (Gabapentin 400 mg) 04/13/[address] [phone] Franklin Squires MD Form (Standard Written Order: Rehab Accessories. Steffen, Quadtro Select HI PRO 20x20 or 11x11 CELL) 04/07/2024 Anticoagulation (warfarin) [facility] [address] [place] [address] 1, [facility] Inr Clinic In [facility] Anticoagulation (acelis) 04/07/[address] [phone] Franklin Squires MD Form (Physician Orders) 04/03/2024 2:30 PM CDT Office Visit [address] [phone] Franklin Squires MD Follow Up (6 week follow up) 04/03/2024 Travel 04/02/[address] [phone] Franklin Squires MD Refill Request (Oxycodone) 03/28/[address] [phone] Franklin Squires MD Refill Request (Furosemide) 03/20/2024 4:32 PM CDT - 03/20/2024 8:34 PM CDT Emergency [facility] [address] [place] [address] Quan Corbett PA Suprapubic catheter dysfunction, initial encounter (HC) (Primary Dx) Discharge Disposition: Home Self Care 03/20/2024 Travel 03/20/[address] [phone] Franklin Squires MD other (FYI / UPDATE ) 03/19/2024 Anticoagulation (warfarin) [address] [phone] 1, [facility] Anticoagulation (acelis) 03/13/2024 2:10 PM CDT Orders Only [address] [phone] [facility], [facility] 03/13/2024 Travel 03/10/[address] [phone] Franklin Squires MD Form (Home Health Certification and Plan of Care. ) 03/10/[address] [phone] Franklin Squires MD Form (60 day summary report. SNV 2x/wk for wound care.) 03/05/2024 Anticoagulation (warfarin) [address] [phone] , [facility] Inr [facility] Anticoagulation (Acelis) 03/02/[address] [phone] Gabrielle Prado PA Refill Request (Oxycodone) 03/02/[address] [phone] Franklin Squires MD Refill Request (Lorazepam) 02/24/2024 Patient Outreach [facility] Care Management - Advanced Care Team [address] [place] [address] Archana Wright, cellophaner Management (ACO outreach engagement ) 02/24/[address] [phone] Franklin Squires MD Form (Physician Orders. Medication order: Lorazapam 0.5 mg; oral tablet. Amoxicillin- clavulanate 875mg) 02/24/[address] [phone] Franklin Squires MD Refill Request (LORazepam (ATIVAN) 0.5 mg tab) 02/20/2024 1:30 PM CDT Office Visit [address] [phone] Franklin Squires MD Hospital F/U (02/15/24) 02/20/2024 Anticoagulation (warfarin) [address] [phone] 1, [facility] In[facility] In [facility] Anticoagulation 02/20/2024 Travel 02/18/2024 Anticoagulation (warfarin) [address] [phone] 1, [facility] In[facility] Anticoagulation (acelis) 02/18/2024 Patient Outreach [address] [phone] Archana Stein RN Primary RN Care Management (Hospital DC:02/17/24/LACE:47/Pne [facility]); Hospital F/U 02/17/[address] [phone] Franklin Squires MD Form (Service Order: Hold. Acute care hospitalization for pneumonia. Hold [facility] pending discharge plans. Effective: 02/15/2024) 02/15/2024 4:34 PM CDT - 02/17/2024 2:45 PM CDT Hospital Encounter [facility] [address] [place] [address] [facility] Internal FogeGilson MD Khakbaznejad, Alireza, MD Pneumonia due to infectious organism, unspecified laterality, unspecified part of lung (Primary Dx); History of DVT (deep vein thrombosis); Pressure injury of right buttock, stage 1 Discharge Disposition: Home Self Care 02/15/2024 Travel 02/15/[address] [place] [phone] , [facility] Refill Request (Warfarin) 02/14/2024 3:10 PM CDT - 02/15/2024 2:45 PM CDT Hospital Encounter [facility] [address] [place] [address] Quan Corbett, ROXY Ramírez, MD Terence Bruno, Todd Glass, DO Cintron, George Izaguirre, RAT EXTERMINATOR Nancy, Malini Ferro, CLEMENT Leukocytosis, unspecified type (Primary Dx); Fever, unspecified fever cause; Chills; Tachycardia; Pulmonary infiltrate; Elevated C-reactive protein (CRP); Pressure injury of deep tissue of left buttock Discharge Disposition: Critical Access Hospital 02/14/2024 Travel 02/05/2024 Anticoagulation (warfarin) [facility] [address] [place] [phone] [place] [address] Inr Clinic In [facility] Anticoagulation (Acelis) 01/28/2024 Refill [facility] [address] [place] [address] Franklin Squires MD Refill Request (Oxycodone) from Last 3 Months Immunizations Name Administration Dates Next Due COVID-19 vaccine ([employer] NTech 30mcg/0.3mL) 12YO+ BIVALENT PF, MDV 10/22/2022 COVID-19 vaccine ([employer] NTech 30mcg/0.3mL) PF, MDV 01/25/2021,01/02/2021 Influenza A [...] Sign Reading Time Taken Comments Blood Pressure 161/96 04/24/2024 1:48 PM CDT Pulse 100 04/24/2024 1:48 PM CDT Temperature 37.1 ??C (98.7 ??F) 04/24/2024 1:48 PM CD T Respiratory Rate 18 04/24/2024 1:48 PM CDT Oxygen Saturation 98% 04/24/2024 1:48 PM CDT Inhaled Oxygen Concentration - - Weight 95.7 kg (211 lb) 04/24/2024 1:48 PM CDT Height 175.3 cm (5' 9) 04/24/2024 1:48 PM CDT Body Mass Index 31.16 04/24/2024 1:48 PM CDT Plan of Treatment Health Maintenance [...] Associated Diagnosis Comments HOME MONITOR AC Routine 04/24/2024 12:00 AM CDT HOME MONITOR AC Routine 04/07/2024 12:00 AM [...] MONITOR AC Routine 02/05/2024 12:00 AM CDT from Last 3 Months Results * (ABNORMAL) HOME MONITOR AC (04/24/2024 12:00 AM CDT) Only the most recent of6 resultswithin the time period is included. PATIENT REPORTED HOME INR 1.7(L) 2.00 - 3.00 [facility] 04/24/2024 Franklin Squires MD OTHER [facility] [address] [place] [address] * BLADDER CATHETERIZATION (03/20/2024 7:52 PM CDT) [...] ?Risks discussed: ??Pain, incomplete procedure and infection [place] protocol: ??Procedure explained and questions answered to [...] CDT) CULTURE RESULT(A) 03/28/2024 11:28 AM CDT [facility] C[facility] 2+ Klebsiella pneumoniae 03/28/2024 11:28 AM CDT [facility] CULTURE 2+ Pseudomonas aeruginosa 03/28/2024 11:28 AM CDT [facility] CULTURE 2+ Staphylococcus aureus 03/28/2024 11:28 AM CDT [facility] Comment:Isolate is MRSA (Met hicillin-resistant Staph aureus). CULTURE 2+ Mixed brigette present 03/28/2024 11:28 AM CDT [facility] GRAM STAIN No PMNs 03/28/2024 11:28 AM CDT [facility] GRAM STAIN No Epithelial cells 03/28/2024 11:28 AM CDT [facility] GRAM STAIN No RBCs 03/28/2024 11:28 AM CDT [facility] GRAM STAIN 4+ Gram Negative Bacilli 03/28/2024 11:28 AM CDT [facility] GRAM STAIN 2+ Gram Positive Cocci 03/28/2024 11:28 AM CDT [facility] Other SPECIMEN FROM [facility] / Unknown Non-Blood / Unknown 03/20/2024 5:01 PM CDT 03/20/2024 5:05 PM CDT [facility] - 03/28/2024 11:28 AM CDT Mixed [...] TRIMETHOPRIM/SULF <=0.5/9.5: S Quan RAMSEY MICROBIOLOG Y [facility] [address] [place] [address], * (ABNORMAL) CBC WITH AUTO DIFFERENTIAL (03/20/2024 4:58 PM CDT) Only the most recent of3 resultswithin the time period is included. Pathologist [facility] WHITE BLOOD COUNT 10.9 4.5 - 11.0 thou/cu mm 03/20/2024 5:[address] [facility] RED BLOOD COUNT 4.92 4.30 - 5.90 mil/cu mm 03/20/2024 5:[address] [facility] HEMOGLOBIN 12.7(L) 13.5 - 17.5 g/dL 03/20/2024 5:[address] [facility] HEMATOCRIT 40.0 37.0 - 53.0 % 03/20/2024 5:[address] [facility] MCV 81 80 - 100 fL 03/20/2024 5:[address] [facility] MCH 25.8(L) 26.0 - 34.0 pg 03/20/2024 5:[address] [facility] MCHC 31.8(L) 32.0 - 36.0 g/dL 03/20/2024 5:[address] [facility] RDW 18.1(H) 11.5 - 15.5 % 03/20/2024 5:[address] [facility] PLATELET COUNT 263 140 - 440 thou/cu mm 03/20/2024 5:[address] [facility] MPV 9.4 6.5 - 11.0 fL 03/20/2024 5:06 PM T [facility] % NEUT 68.4 % 03/20/2024 5:06 PM T [facility] % LYMPH 20.1 % 03/20/2024 5:[address] [facility] % MONO 8.4 % 03/20/2024 5:[address] [facility] % EOS 2.8 % 03/20/2024 5:[address] [facility] % BASO 0.3 % 03/20/2024 5:06 PM T [facility] ABSOLUTE NEUTROPHILS 7.4(H) 1.7 - 7.0 thou/cu mm 03/20/2024 5:[address] [facility] ABSOLUTE LYMPHOCYTES 2.2 0.9 - 2.9 thou/cu mm 03/20/2024 5:06 PM T [facility] ABSOLUTE MONOCYTES 0.9(H) <0.9 thou/cu mm 03/20/2024 5:[address] [facility] ABSOLUTE EOSINOPHILS 0.3 <0.5 thou/cu mm 03/20/2024 5:[address] [facility] ABSOLUTE BASOPHILS 0.0 <0.3 thou/cu mm 03/20/2024 5:06 PM T [facility] Blood BLOOD SPECIMEN / Unknown Butterfly / Unknown 03/20/2024 4:58 PM CDT 03/20/2024 5:02 PM CDT Quan RAMSEY HEMATOLOGY [facility] [address] [place] [address] * LACTATE VENOUS (03/20/2024 4:58 PM CDT) Only the most recent of2 resultswithin the time period is included. [facility] LACTATE,VENOUS 1.3 0.5 - 2.0 mmol/L 03/20/2024 5:21 PM CDT [facility] Blood BLOOD SPECIMEN / Unknown Butterfly / Unknown 03/20/2024 4:58 PM CDT 03/20/2024 5:02 PM CDT Quan RAMSEY CHEMISTRY [facility] [address] [facility] [place] [address] * (ABNORMAL) BASIC METABOLIC PANEL (03/20/2024 4:58 PM CDT) SODIUM 139 136 - 145 mmol/L 03/20/2024 5:[address] [facility] POTASSIUM 4.5 3.5 - 5.1 mmol/L 03/20/2024 5:[address] [facility] CHLORIDE 100 98 - 107 mmol/L 03/20/2024 5:[address] [facility] CO2,TOTAL 29 22 - 29 mmol/L 03/20/2024 5:[address] [facility] ANION GAP 10 5 - 18 03/20/2024 5:[address] [facility] GLUCOSE 115(H) 70 - 99 mg/dL 03/20/2024 5:[address] [facility] CALCIUM 9.4 8.8 - 10.2 mg/dL 03/20/2024 5:[address] [facility] BUN 21 8 - 23 mg/dL 03/20/2024 5:[address] [facility] CREATININE 0.63(L) 0.70 - 1.20 mg/dL 03/20/2024 5:[address] [facility] BUN/CREAT RATIO 33(H) 10 - 20 5:[address] [facility] eGFR >90 >90 mL/min/1.7 3m2 03/20/2024 5:[address] [facility] Comment:As of 2022, eG FR [...] CDT Quan RAMSEY CHEMISTRY Performing Organization Address [facility]/ZIP Co de Phone Number [facility] [address] [place] [address] * (ABNORMAL) URINALYSIS MICROSCOPIC (03/13/2024 11:04 AM CDT) Only the most recent of2 resultswithin the time period is included. RBC 0-2 0-2, None Seen /HPF 03/13/2024 2:26 PM CDT [facility] WBC 6-10(A) 0-2, 3-5, None Seen /HPF 03/13/2024 2:26 PM CDT [facility] BACTERIA Few None Seen, Rare, Few Bacteria/ HPF 03/13/2024 2:26 PM CDT [facility] EPITHELIAL CELLS Few None Seen, Few Epi/HPF 03/13/2024 2:26 PM CDT [facility] WHITE CELL CLUMPS Present(A) (none) 03/13/2024 2:26 PM CDT [facility] Urine URINE SPECIMEN / Unknown Non-Blood / Unknown 03/13/2024 11:04 AM CDT 03/13/2024 1:37 PM CDT Franklin Squires MD URINE Performing Organization Address [facility]/ZIP Co de Phone Number [facility] [address] [place] [address] * (ABNORMAL) URINE CULTURE (03/13/2024 11:04 AM CDT) Only the most recent of2 resultswithin the time period is included. CULTURE RESULT(A) 03/16/2024 9:13 AM CDT [facility] CULTURE >100,000 CFU/mL Pseudomonas aeruginosa 03/16/2024 9:13 AM CDT [facility] CULTURE 50,000-100,000 CFU/mL Staphylococcus aureus 03/16/2024 9:13 AM CDT [facility] CULTURE 10,000-50,000 CFU/mL Enterobacter cloacae complex 03/16/2024 9:13 AM CDT [facility] Comment: May develop resistance during prolonged [...] AM CDT 03/13/2024 1:37 PM CDT Narrative [facility] - 03/16/2024 9:13 AM CDT May represent colonization. No further workup pending. Franklin Squires MD MICROBIOLOGY [facility] [address] [place] [address], * (ABNORMAL) UA W/ SEDIMENT EXAM REFLEXED PER CRITERIA (03/13/2024 11:04 AM CDT) Only the most recent of2 resultswithin the time period is included. COLOR Yellow Yellow Color 03/13/2024 2:[address] [facility] CLARITY Clear Clear Clarity 03/13/2024 2:[address] [facility] SPECIFIC GRAVITY,URINE <=1.005(A) 1.010, 1.015, 1.020, 1.025 03/13/2024 2:[address] [facility] PH,URINE 6.5 6.0, 7.0, 8.0, 5.5, 6.5, 7.5, 8.5 03/13/2024 2:[address] [facility] UROBILINOGEN, QUALITATIVE Normal Normal EU/dl 03/13/2024 2:[address] [facility] PROTEIN, URINE Negative Negative mg/dL 03/13/2024 2:24 PM CDT [facility] GLUCOSE, URINE Negative Negative mg/dL 03/13/2024 2:24 PM CDT [facility] KETONES,URINE Negative Negative mg/dL 03/13/2024 2:24 PM CDT [facility] BILIRUBIN,URI NE Negative Negative 03/13/2024 2:24 PM CDT [facility] OCCULT BLOOD,URINE Moderate(A) Negative 03/13/2024 2:24 PM CDT [facility] NITRITE Negative Negative 03/13/2024 2:24 PM CDT [facility] LEUKOCYTE ESTERASE Moderate(A) Negative 03/13/2024 2:24 PM CDT [facility] Urine URINE SPECIMEN / Unknown Non-Blood / Unknown 03/13/2024 11:04 AM CDT 03/13/2024 1:37 PM CDT Franklni Squires MD URINE Performing Organization Address City/[facility]/ZIP Co de Phone Number [facility] [address] [place] [address] * POTASSIUM (02/20/2024 2:15 PM CDT) Only the most recent of2 resultswithin the time period is included. POTASSIUM 4.3 3.5 - 5.1 mmol/L 02/20/2024 4:02 PM CDT [facility] Blood BLOOD SPECIMEN / Unknown Venipuncture / Unknown 02/20/2024 2:15 PM CDT 02/20/2024 3:06 PM CDT Franklin Squires MD CHEMISTRY Performing Organization Address [facility]/ZIP Co de Phone Number [facility] [address] [place] [address] * (ABNORMAL) PROTIME-INR (02/20/2024 2:15 PM CDT) Only the most recent of5 resultswithin the time period is included. INR 1.9(H) <1.3 02/20/2024 2:38 PM CDT [facility] PROTIME 21.2(H) 10.3 - 12.3 sec 02/20/2024 2:38 PM CDT [facility] Blood BLOOD SPECIMEN / Unknown Venipuncture / Unknown 02/20/2024 2:15 PM CDT 02/20/2024 2:15 PM CDT Narrative [facility] - 02/20/2024 2:38 PM CDT [...] is on UFH. Franklin Squires MD HEMATOLOGY [facility] [address] [place] [address] * SODIUM (02/17/2024 5:11 AM CDT) Pathologist [facility] SODIUM 140 136 - 145 mmol/L 02/17/2024 6:14 AM T [facility] Blood BLOOD SPECIMEN / Unknown Butterfly / Unknown 02/17/2024 5:11 AM CDT 02/17/2024 5:44 AM CDT John Ludwig MD CHEMISTRY [facility] INTERNAL ZIP [phone] [place] [address] * (ABNORMAL) CREATININE (02/17/2024 5:11 AM CDT) eGFR >90 >90 mL/min/1.7 3m2 02/17/2024 6:14 AM CDT [facility] Comment:As of 2022, eG FR is calculated by the CKD-EPI creatinine equation without race adjustment. ??eGFR can be influenced by muscle mass, exercise, and diet. ??The reported eGFR is an estimation only and is only applicable if the renal function is stable. CREATININE 0.56(L) 0.70 - 1.20 mg/dL 02/17/2024 6:14 AM CDT [facility] Blood BLOOD SPECIMEN / Unknown Butterfly / Unknown 02/17/2024 5:11 AM CDT 02/17/2024 5:44 AM CDT John Ludwig MD CHEMISTRY Performing Organization Address [facility] Co md Phone Number [facility] INTERNAL ZIP [phone] [place] [address] * MAGNESIUM (02/17/2024 5:11 AM CDT) MAGNESIUM 2.0 1.6 - 2.4 mg/dL 02/17/2024 7:44 AM CDT [facility] Blood BLOOD SPECIMEN / Unknown Butterfly / Unknown 02/17/2024 5:11 AM CDT 02/17/2024 5:44 AM CDT John Ludwig MD CHEMISTRY Performing Organization Address [facility] Co md Phone Number [facility] INTERNAL ZIP [phone] [place] [address] * (ABNORMAL) GLUCOSE METER (02/16/2024 11:41 AM CDT) Only the most recent of6 resultswithin the time period is included. GLUCOSE METER 129(H) 65 - 100 mg/dL 02/16/2024 12:02 PM CDT [facility] Blood BLOOD SPECIMEN / Unknown 02/16/2024 11:41 AM CDT 02/16/2024 12:02 PM CDT John Ludwig MD CHEMISTRY Performing Organization Address [facility]/State/ZIP Co de Phone Number [facility] INTERNAL ZIP [phone] [place] [address] * LEGIONELLA AND PNEUMOCOCCAL URINE ANTIGEN (02/15/2024 10:25 AM CDT) Pathologist [facility] STREP PNEUMO ANTIGEN Negative 02/15/2024 3:46 PM CDT [facility] Comment:Presumptive negative for pneumococcal pneumonia, suggesting no current or recent pneumococcal infection. Infection due to S. pneumoniae cannot be ruled out since the antigen present in the sample may be below the detection limit of the test. LEGIONELLA ANTIGEN Negative 02/15/2024 3:46 PM CDT [facility] Comment:Negative for L.pneum ophila serogroup [...] 10:30 AM CDT James Ramírez MD MICROBIOLOGY [facility] [address] [place] [address], * (ABNORMAL) WHITE BLOOD COUNT (02/15/2024 5:54 AM CDT) Pathologist [facility] WHITE BLOOD COUNT 11.7(H) 4.5 - 11.0 thou/cu mm 02/15/2024 7:16 AM CDT [facility] Blood BLOOD SPECIMEN / Unknown Venipuncture / Unknown 02/15/2024 5:54 AM CDT 02/15/2024 7:09 AM CDT James Ramírez MD HEMATOLOGY [facility] [address] [place] [address] * CT ABDOMEN PELVIS WO (02/14/2024 8:12 [...] 6-15 ng/L ng/L 02/14/2024 8:12 PM CDT [facility] Blood BLOOD SPECIMEN / Unknown Venipuncture / Unknown 02/14/2024 7:49 PM CDT 02/14/2024 7:53 PM CDT Quan RAMSEY CHEMISTRY [facility] [address] [place] [address] * (ABNORMAL) TROPONIN T (HS) ACUTE W/2HR REFLEX (02/14/2024 5:35 PM CDT) TROPONIN T HS 33(H) 6-15 ng/L ng/L 02/14/2024 6:42 PM CDT [facility] Blood BLOOD SPECIMEN / Unknown Venipuncture / Unknown 02/14/2024 5:35 PM CDT 02/14/2024 5:38 PM CDT Narrative [facility] - 02/14/2024 6:42 PM CDT [...] emergency department patient population. Quan [facility]MI[facility] [address] [place], [place] [id number] * XR CHEST 1 VIEW PORTABLE (02/14/2024 [...] CULTURE No Growth. 02/20/2024 5:27 AM CDT [facility] Blood BLOOD SPECIMEN / Unknown Butterfly / Unknown 02/14/2024 3:58 PM CDT 02/14/2024 4:02 PM CDT Quan RAMSEY MICROBIOLOG Y [facility] [address] [place] [address] * PROCALCITONIN (02/14/2024 3:50 PM CDT) PROCALCITONIN 0.10 ng/ml 02/14/2024 5:09 PM CDT [facility] Blood BLOOD SPECIMEN / Unknown Butterfly / Unknown 02/14/2024 3:50 PM CDT 02/14/2024 4:39 PM CDT Narrative [facility] - 02/14/2024 5:09 PM CDT [...] Quan RAMSEY SEND OUTS Performing Organization Address [facility] Co de Phone Number [facility] [address] [place] [phone] * (ABNORMAL) C-REACTIVE PROTEIN (02/14/2024 3:50 PM CDT) C-REACTIVE PROTEIN 10.9(H) <0.5 mg/dL 02/14/2024 5:09 PM CDT [facility] Blood BLOOD SPECIMEN / Unknown Butterfly / Unknown 02/14/2024 3:50 PM CDT 02/14/2024 4:02 PM CDT Quan RAMSEY CHEMISTRY Performing Organization Address [facility] Co de Phone Number [facility] [address] [facility] [place] [address] * (ABNORMAL) COMP METABOLIC PANEL (02/14/2024 3:50 PM CDT) SODIUM 134(L) 136 - 145 mmol/L 02/14/2024 4:[address] [facility] POTASSIUM 4.3 3.5 - 5.1 mmol/L 02/14/2024 4:[address] [facility] CHLORIDE 96(L) 98 - 107 mmol/L 02/14/2024 4:[address] [facility] CO2,TOTAL 25 22 - 29 mmol/L 02/14/2024 4:[address] [facility] ANION GAP 13 5 - 18 02/14/2024 4:[address] [facility] GLUCOSE 118(H) 70 - 99 mg/dL 02/14/2024 4:[address] [facility] CALCIUM 9.4 8.8 - 10.2 mg/dL 02/14/2024 4:[address] [facility] BUN 15 8 - 23 mg/dL 02/14/2024 4:[address] [facility] CREATININE 0.60(L) 0.70 - 1.20 mg/dL 02/14/2024 4:[address] [facility] BUN/CREAT RATIO 25(H) 10 - 20 4:[address] [facility] eGFR >90 >90 mL/min/1.7 3m2 02/14/2024 4:[address] [facility] Comment:As of 2022, eG FR is calculated by the CKD-EPI creatinine equation without race adjustment. ??eGFR can be influenced by muscle mass, exercise, and diet. ??The reported eGFR is an estimation only and is only applicable if the renal function is stable. ALBUMIN 4.1 4.0 - 4.9 g/dL 02/14/2024 4:[address] [facility] PROTEIN,TOTAL 7.8 6.0 - 8.0 g/dL 02/14/2024 4:[address] [facility] BILIRUBIN,TOTAL 0.6 0.0 - 1.2 mg/dL 02/14/2024 4:24 PM CDT [facility] ALK PHOSPHATASE 117 40 - 129 IU/L 02/14/2024 4:24 PM CDT [facility] ALT (SGPT) 47 10 - 50 IU/L 02/14/2024 4:24 PM CDT [facility] AST (SGOT) 42 10 - 50 IU/L 02/14/2024 4:24 PM CDT [facility] Blood BLOOD SPECIMEN / Unknown Butterfly / Unknown 02/14/2024 3:50 PM CDT 02/14/2024 4:02 PM CDT Quan RAMSEY CHEMISTRY [facility] [address] [place] [address] from Last 3 Months Additional Health Concerns [...] 12 months since positive culture): 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, receiving hemodialysis, has chronic open wounds/skin damage, has long-term percutaneous indwelling medical devices Exclusions for nares collection (if <12 months since positive culture) include all of the previous exclusions plus patients on antibiotics 7 days prior to collection 03/13/2018 03/20/2024 Advance Directives Documents on File Type Date Recorded 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
--- OUTSIDE RECORDS SUMMARY | 2024-04-27 12:50 | XMS_ITS | Encounter Summary ---
Author Organization [facility] Address [address] [address] Care Team Providers Care Detail Assembler Name Role Phone Franklin Squires MD Primary Care Provider [phone] Encounter Details Date Type Department Care Team (Late st Contact Info) Description 11/23/2015 Correspondence External to External, [place] [address] LETTER [facility] Social History Tobacco Use Types Packs/Day Years [...] on filedocumented in this encounter Care Teams Detail Assembler Relationship Specialty Start Date End Date Franklin Squires MD [address] [place] [address] [place] [address] PCP - General Family Practice 03/08/16 documented as of this encounter
--- OUTSIDE RECORDS SUMMARY | 2024-04-27 12:51 | XMS_ITS | Encounter Summary ---
Author Organization [facility] Address [address] [address] Care Team Providers Care Finish Mender Name Role Phone Franklin Squires MD Primary Care Provider Encounter Details Date Type Department Care Team (Late st Contact Info) Description 06/07/2015 Correspondence [facility] Radiology [address] [place] [address] Radiology, Provider MRI SAFETY SHEET AND COMPATIBILITY [...] on filedocumented in this encounter Care Teams Finish Mender Relationship Specialty Start Date End Date Franklin Squires MD [address] [place], [place] [address] [address] PCP - General Family Practice 03/08/16 documented as of this encounter
--- OUTSIDE RECORDS SUMMARY | 2024-04-27 12:51 | XMS_ITS | Encounter Summary ---
Author Organization [facility] Address [address] [address] Care Team Providers Care Seismic Prospecting Observer Helper Name Role Phone Franklin Squires MD Primary Care Provider [phone] Encounter Details Date Type Department Care Team (Late st Contact Info) Description 11/13/2012 Correspondence [facility] Radiology [address] [place] [address] Radiology, Provider MRI SAFETY SHEET AND COMPATIBILITY [...] RADIOLOGY, PROVIDER - 11/13/2012 12:00 AM CST OGRAPHIC ENGINEER documented in this encounter Plan of Treatment Not on file documented as of this encounter Visit Diagnoses Not on filedocumented in this encounter Care Teams Seismic Prospecting Observer Helper Relationship Specialty Start Date End Date Franklin Squires MD 100 [facility] [place] [address] PCP - General Family Practice 03/08/16 documented as of this encounter
--- OUTSIDE RECORDS SUMMARY | 2024-04-27 12:51 | XMS_ITS | Encounter Summary ---
Author Organization [facility] Address [address] [address] Care Team Providers Care Kitchen Cleaner Name Role Phone Franklin Squires MD Primary [...] on filedocumented in this encounter Care Teams Kitchen Cleaner Relationship Specialty Start Date End Date Franklin Squires MD 100 [facility] [place] [address] PCP - General Family Practice 03/08/16 documented as of this encounter
--- OUTSIDE RECORDS SUMMARY | 2024-04-27 12:51 | XMS_ITS | Encounter Summary ---
Author Organization [facility] Address [address] [address] Care Team Providers Care Cook Larder Name Role Phone Franklin Squires MD Primary Care Provider Encounter Details Date Type Department Care Team (Late st Contact Info) Description 12/14/2014 Correspondence [facility] 401 Physical Medicine 401 [facility] [place] [address] May Randle MD [address] [place] [address] DETAILED PRODUCT DESCRIPTION Social History Tobacco Use [...] on filedocumented in this encounter Care Teams Cook Larder Relationship Specialty Start Date End Date Franklin Squires MD 100 [facility] [place] [address] PCP - General Family Practice 03/08/16 documented as of this encounter
--- OUTSIDE RECORDS SUMMARY | 2024-04-27 12:51 | XMS_ITS | Encounter Summary ---
Author Organization [facility] Address [address] [address] Care Team Providers Care Refinery Technician Name Role Phone Franklin Squires MD Primary Care Provider Encounter Details Date Type Department Care Team (Late st Contact Info) Description 12/16/2013 Correspondence [facility] Radiology [address] [place] [address] Radiology, Provider MRI SAFETY SHEET AND COMPATIBILITY [...] Radiology, Provider - 12/16/2013 12:00 AM CST [place] documented in this encounter Plan of Treatment Not on file documented as of this encounter Visit Diagnoses Not on filedocumented in this encounter Care Teams Refinery Technician Relationship Specialty Start Date End Date Franklin Squires MD 100 [facility] [place] [address] PCP - General Family Practice 03/08/16 documented as of this encounter
--- OUTSIDE RECORDS SUMMARY | 2024-04-27 12:51 | XMS_ITS | Encounter Summary ---
Author Organization [facility] Address [address] [address] Care Team Providers Care Studio Producer Name Role Phone Franklin Squires MD Primary Care Provider Encounter Details Date Type Department Care Team (Late st Contact Info) Description 06/11/2014 Correspondence [facility] 401 Physical Medicine 401 [facility] [place] [address] May Randle MD [address] [place] [address] [facility] Social History Tobacco Use Types Packs/Day [...] filedocumented in this encounter Care Teams Studio Producer Relationship Specialty Start Date End Date Franklin Squires MD 100 [facility] [place] [address] PCP - General Family Practice 03/08/16 documented as of this encounter
--- OUTSIDE RECORDS SUMMARY | 2024-04-27 12:51 | XMS_ITS | Encounter Summary ---
Author Organization [facility] Address [address] [address] Care Team Providers Care Property And Casualty Insurance Agent Name Role Phone Franklin Squires MD [...] on filedocumented in this encounter Care Teams Property And Casualty Insurance Agent Relationship Specialty Start Date End Date Franklin Squires MD [address] [facility] [place] [address] PCP - General Family Practice 03/08/16 documented as of this encounter
--- OUTSIDE RECORDS SUMMARY | 2024-04-27 12:51 | XMS_ITS | Encounter Summary ---
Author Organization [facility] [address], [place] [address] Care Team Providers Care Power Plant Engineer Name Role Phone Franklin Squires MD Primary Care Provider [phone] Encounter Details Date Type Department Care Team (Late st Contact Info) Description 02/05/2014 Correspondence [facility] Physical Therapy [address] [place] [address] Trudi Raymundo, PT [address] [place] [address] LETTER OF MEDICAL NECESSITY FOR A WHEELCHAIR [...] filedocumented in this encounter Care Teams Power Plant Engineer Relationship Specialty Start Date End Date Franklin Squires MD 100 [facility] [place] [address] PCP - General Family Practice 03/08/16 documented as of this encounter
--- OUTSIDE RECORDS SUMMARY | 2024-04-27 12:51 | XMS_ITS | Encounter Summary ---
Author Organization [facility] [address] [address] Care Team Providers Care Shell Molding Roller Blast Operator Name Role Phone Franklin Squires MD Primary Care Provider [phone] Encounter Details Date Type Department Care Team (Late st Contact Info) Description 11/10/2014 Correspondence [facility] Physical Therapy [address] [place] [address] Trudi Raymundo, PT [address] [place] [address] LETTER OF MEDICAL NECESSITY Social History Tobacco [...] on filedocumented in this encounter Care Teams Shell Molding Roller Blast Operator Relationship Specialty Start Date End Date Franklin Squires MD 100 [facility] [place] [address] PCP - General Family Practice 03/08/16 documented as of this encounter
--- OUTSIDE RECORDS SUMMARY | 2024-04-27 12:51 | XMS_ITS | Encounter Summary ---
Author Organization [facility] [address] [address] Care Team Providers Care Securities And Real Estate Director Name Role Phone Franklin Squires MD Primary Care Provider [phone] Encounter Details Date Type Department Care Team (Late st Contact Info) Description 10/26/2013 Correspondence [facility] Physical Therapy [address] [place] [address] Trudi Raymundo, PT [address] [place] [address] LETTER OF MEDICAL NECESSITY Social History Tobacco [...] Raymundo, PT - 10/26/2013 12:00 AM CST M CLOTHES PRESS OPERATOR documented in this encounter Plan of Treatment Not on file documented as of this encounter Visit Diagnoses Not on filedocumented in this encounter Care Teams Securities And Real Estate Director Relationship Specialty Start Date End Date Franklin Squires MD 100 [facility] [address] PCP - General Family Practice 03/08/16 documented as of this encounter
--- OUTSIDE RECORDS SUMMARY | 2024-04-27 12:51 | XMS_ITS | Encounter Summary ---
Author Organization [facility] Address [address] [address] Care Team Providers Care Safety Net Maker Name Role Phone Franklin Squires MD Primary Care Provider Encounter Details Date Type Department Care Team (Late st Contact Info) Description 04/24/2012 Correspondence [facility] Radiology [address] [place] [address] Radiology, Provider MRI SAFETY SHEET AND COMPATIBILITY [...] on filedocumented in this encounter Care Teams Safety Net Maker Relationship Specialty Start Date End Date Franklin Squires MD 100 [facility] [place] [address] PCP - General Family Practice 03/08/16 documented as of this encounter
--- OUTSIDE RECORDS SUMMARY | 2024-04-27 12:51 | XMS_ITS | Encounter Summary ---
Author Organization [facility] Address [address], [place] [address] Care Team Providers Care Fiction And Nonfiction Author Name Role Phone Franklin Squires MD Primary Care Provider [phone] Encounter Details Date Type Department Care Team (Late st Contact Info) Description 08/20/2014 Outside Hospital External to [facility] Social History Tobacco Use [...] on filedocumented in this encounter Care Teams Fiction And Nonfiction Author Relationship Specialty Start Date End Date Franklin Squires MD [address] [place], [place] [address] [address] PCP - General Family Practice 03/08/16 documented as of this encounter
--- OUTSIDE RECORDS SUMMARY | 2024-04-27 12:51 | XMS_ITS | Encounter Summary ---
Author Organization [facility] Address [address] [address] Care Team Providers Care Hydraulic Press Operator Name Role Phone Franklin Squires MD Primary Care Provider Encounter Details Date Type Department Care Team (Late st Contact Info) Description 04/20/[address] [address] Radiology, Provider MRI SAFETY SHEET AND COMPATIBILITY [...] on filedocumented in this encounter Care Teams Hydraulic Press Operator Relationship Specialty Start Date End Date Franklin Squires MD 100 [facility] [place] [address] PCP - General Family Practice 03/08/16 documented as of this encounter
--- OUTSIDE RECORDS SUMMARY | 2024-04-27 12:51 | XMS_ITS | Encounter Summary ---
Author Organization [facility] Address [address] [address] Care Team Providers Care Dental Technician Instructor Name Role Phone Franklin Squires MD Primary Care Provider Encounter Details Date Type Department Care Team (Late st Contact Info) Description 12/16/2014 Correspondence External to External, Provider [place] [address] MEDICARE PLAN OF CARE RECERT Social History [...] filedocumented in this encounter Care Teams Dental Technician Instructor Relationship Specialty Start Date End Date Franklin Squires MD [address] [place] [address] [facility] [place] [address] PCP - General Family Practice 03/08/16 documented as of this encounter
--- OUTSIDE RECORDS SUMMARY | 2024-04-27 12:51 | XMS_ITS | Encounter Summary ---
Author Organization [facility] Address [address] [address] Care Team Providers Care Surveillance Systems Analyst Name Role Phone Franklin Squires MD Primary Care Provider Encounter Details Date Type Department Care Team (Late st Contact Info) Description 09/07/2014 Correspondence [facility] Radiology [address] [place] [address] Radiology, Provider MRI SAFETY SHEET AND COMPATIBILITY [...] filedocumented in this encounter Care Teams Surveillance Systems Analyst Relationship Specialty Start Date End Date Franklin Squires MD [address] [place], [place] [address] [address] PCP - General Family Practice 03/08/16 documented as of this encounter
--- OUTSIDE RECORDS SUMMARY | 2024-04-27 12:51 | XMS_ITS | Encounter Summary ---
Author Organization [facility] Address [address], [place] [address] Care Team Providers Care Senior Project Controls Specialist Name Role Phone Franklin Squires MD Primary Care Provider Encounter Details Date Type Department Care Team (Latest Contact Info) Description 06/04/2014 Correspondence [facility] 401 Interventional Pain Management 401 [facility] [place] [address] Zelalem Cohen, DO [address] [place] [address] MEDICAID PT INFORMATION EMPI RECOVERY Social History [...] filedocumented in this encounter Care Teams Senior Project Controls Specialist Relationship Specialty Start Date End Date Franklin Squires MD 100 [facility] [place] [address] PCP - General Family Practice 03/08/16 documented as of this encounter
--- OUTSIDE RECORDS SUMMARY | 2024-04-27 12:51 | XMS_ITS | Encounter Summary ---
Author Organization [facility] Address [address], [place] [address] Care Team Providers Care Habitat Management Coordinator Name Role Phone Franklin Squires MD Primary Care Provider [phone] Encounter Details Date Type Department Care Team (Late st Contact Info) Description 09/17/2013 Correspondence External to External, [place] [address] EMPOWERMENT RULES Social History Tobacco Use Types [...] Provider - 09/17/2013 12:00 AM CST ER TENDER documented in this encounter Plan of Treatment Not on file documented as of this encounter Visit Diagnoses Not on filedocumented in this encounter Care Teams Habitat Management Coordinator Relationship Specialty Start Date End Date Franklin Squires MD 100 [facility] [place] [address] PCP - General Family Practice 03/08/16 documented as of this encounter
--- OUTSIDE RECORDS SUMMARY | 2024-04-27 12:51 | XMS_ITS | Encounter Summary ---
Author Organization [facility] Address [address], [place] [address] Care Team Providers Care Memorial Designer Name Role Phone Franklin Squires MD Primary Care Provider Encounter Details Date Type Department Care Team (Late st Contact Info) Description 07/28/2014 Outside Hospital External to External, Provider No address [address] ER VISIT/TRANSFER Social History Tobacco [...] on filedocumented in this encounter Care Teams Memorial Designer Relationship Specialty Start Date End Date Franklin Squires MD 100 [facility] [place] [address] PCP - General Family Practice 03/08/16 documented as of this encounter
--- OUTSIDE RECORDS SUMMARY | 2024-04-27 12:51 | XMS_ITS | Encounter Summary ---
Author Organization [facility] Address [address] [address] Care Team Providers Care Plater Printed Circuit Board Panels Name Role Phone Franklin Squires MD Primary Care Provider Encounter Details Date Type Department Care Team (Late st Contact Info) Description 05/04/2014 Correspondence [facility] 401 Physical Medicine 401 [facility] [place] [address] May Randle MD [address] [place] [address] LETTER OF MEDICAL NECESSITY FOR A WHEELCHAIR [...] on filedocumented in this encounter Care Teams Plater Printed Circuit Board Panels Relationship Specialty Start Date End Date Franklin Squires MD 100 [facility] [place] [address] PCP - General Family Practice 03/08/16 documented as of this encounter
--- OUTSIDE RECORDS SUMMARY | 2024-04-27 12:51 | XMS_ITS | Encounter Summary ---
Author Organization [facility] Address [address] [address] Care Team Providers Care Lubricating Machine Tender Name Role Phone Franklin Squires MD Primary Care Provider Encounter Details Date Type Department Care Team (Late st Contact Info) Description 03/11/2014 Correspondence [facility] 401 Interventional Pain Management 401 [place] [address] Zelalem Cohen, DO [address] [place] [address] EMPI Social History Tobacco Use Types Packs/Day [...] on filedocumented in this encounter Care Teams Lubricating Machine Tender Relationship Specialty Start Date End Date Franklin Squires MD 100 [facility] [place] [address] PCP - General Family Practice 03/08/16 documented as of this encounter
--- OUTSIDE RECORDS SUMMARY | 2024-04-27 12:51 | XMS_ITS | Encounter Summary ---
Author Organization [facility] Address [address] [address] Care Team Providers Care De Icer Finisher Name Role Phone Franklin Squires MD Primary Care Provider Encounter Details Date Type Department Care Team (Late st Contact Info) Description 08/22/2014 Outside Hospital External to [facility]/C SUMMARY Social History Tobacco Use Types [...] on filedocumented in this encounter Care Teams De Icer Finisher Relationship Specialty Start Date End Date Franklin Squires MD 100 [facility] [place] [address] PCP - General Family Practice 03/08/16 documented as of this encounter
--- OUTSIDE RECORDS SUMMARY | 2024-04-27 12:51 | XMS_ITS | Encounter Summary ---
Author Organization [facility] Address [address] [address] Care Team Providers Care Adult Educator Name Role Phone Franklin Squires MD Primary Care Provider Encounter Details Date Type Department Care Team (Late st Contact Info) Description 01/08/2013 Scanned History External to Transferred Record, Provider [facility] Social History Tobacco Use Types Packs/Day Years [...] on filedocumented in this encounter Care Teams Adult Educator Relationship Specialty Start Date End Date Franklin Squires MD 100 [facility] [place] [address] PCP - General Family Practice 03/08/16 documented as of this encounter
--- OUTSIDE RECORDS SUMMARY | 2024-04-27 12:51 | XMS_ITS | Encounter Summary ---
Author Organization [facility] Address [address] [address] Care Team Providers Care Braille Typist Name Role Phone Franklin Squires MD Primary Care Provider [phone] Encounter Details Date Type Department Care Team (Late st Contact Info) Description 07/23/2013 Correspondence [facility] 401 Interventional Pain Management 401 [facility] [place] [address] Zelalem Cohen DO [address] [place] [address] EXPRESS SCRIPT Social History Tobacco Use Types [...] Cohen MD - 07/23/2013 12:00 AM CDT SYSTEM OPERATOR documented in this encounter Plan of Treatment Not on file documented as of this encounter Visit Diagnoses Not on filedocumented in this encounter Care Teams Braille Typist Relationship Specialty Start Date End Date Franklin Squires MD 100 [facility] [place] [address] PCP - General Family Practice 03/08/16 documented as of this encounter
--- OUTSIDE RECORDS SUMMARY | 2024-04-27 12:51 | XMS_ITS | Encounter Summary ---
Author Organization [facility] Address [address], [place] [address] Care Team Providers Care Diamond Sizer Name Role Phone Franklin Squires MD Primary Care Provider Encounter Details Date Type Department Care Team (Late st Contact Info) Description 08/20/2014 Outside Hospital External to [facility] HOSP-ADMIT H/P Social History Tobacco Use [...] on filedocumented in this encounter Care Teams Diamond Sizer Relationship Specialty Start Date End Date Franklin Squires MD [address] [facility] [place] [id number] PCP - General Family Practice 03/08/16 documented as of this encounter
== END 2024-04-27 12:48 | disposition home or self-care (01) ==
LOC: WOUND 12:47
PROVIDERS: PCP Family Medicine; Visit Provider Family Medicine
DX: L89.324 Pressure ulcer of left buttock, stage 4 (principal); E11.622 Type 2 diabetes mellitus with other skin ulcer; G82.50 Quadriplegia, unspecified
CPT/HCPCS: 11042; 97605

== ENCOUNTER 2024-05-04 12:43 | Outpatient (CLI) | payer MEDICARE, OTHER, SELFPAY ==
--- OUTSIDE RECORDS SUMMARY | 2024-05-04 12:45 | XMS_ITS | Continuity of Care Document ---
Author Name [facility] Organization [facility] Care Team Providers Care Mill Operator Head Name Role Phone [facility] Unavailable Unavailable Problems Combined list of problems from 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 It does not include entries that were removed or entered in error. Problem Status Onset Date Problem Type Date of Resolution Comments Source Abnormal liver function Active Condition [facility] Anemia ([facility] 326673144) Active Condition [facility] Anxiety ([facility] 58330050) Active Condition [facility] Autonomic dysreflexia Active Condition [facility] Chronic Pain Syndrome ([facility] 768851931) Active Condition [facility] Colostomy present Active Condition [facility] Constipation ([facility] 37841619) Active Condition [facility] Continuous opioid dependence Active Condition [facility] COPD - Chronic Obstructive Pulmonary Disease ([facility] 63253050) Active Condition [facility] Dementia Active Condition [facility] Depression ([facility] 97923618) Active Condition [facility] Diabetes Mellitus Type 2 ([facility] 49559189) Active Condition [facility] Ependymoma of spinal cord Active Condition [facility] Hearing Loss ([facility] 86711322) Active Condition [facility] History of Deep Vein Thrombosis ([facility] 024531831) Active Condition [facility] History of pressure injury Active Condition [facility] HTN - Hypertension ([facility] 43034615) Active Condition [facility] Hyperlipidemia ([facility] 76203775) Active Condition [facility] Hyponatremia Active [facility] Long-term current use of anticoagulant Active [facility] Neurogenic Bladder ([facility] 508590520) Active Condition [facility] Neurogenic bowel Active Condition [facility] Osteoporosis ([facility] 79322752) Active Condition [facility] Paraplegia Active Condition [facility] Spasticity Active Condition [facility] Suprapubic urinary catheter in situ Active Condition [facility] Supraventricular tachycardia Active Condition [facility] Tinnitus ([facility] 84144437) Active Condition [facility] Vitamin D Deficiency ([facility] 0779337) Active Condition [facility] Diagnosis: ICD-10-CM Z73.6 Limitation of activities due to disability Active Diagnosis [facility] Diagnosis: ICD-10-CM G82.20 Paraplegia, unspecified Active Diagnosis [facility] Diagnosis: ICD-10-CM Z43.3 Encounter for attention to colostomy Active Diagnosis [facility] Diagnosis: ICD-10-CM Z71.3 Dietary counseling and surveillance Active Diagnosis [facility] Diagnosis: ICD-10-CM F32.A Depression, unspecified Active Diagnosis [facility] Medications Combined list of outpatient medications from Department of Defense and [facility] facilities.Medications provided include 1) outpatient medications from the last 15 months, and 2) patient-reported medications. Medication Details Route Status Patient Instructions Prescription Expires Prescription Number Last Dispense Date Ordering Provider Order Date Order Qty Source ACETAMINOPH EN 500MG TAB TAKE TWO TABLETS BY MOUTH THREE TIMES A DAY NEEDED ORAL ACTIVE Jagdish BARRETT N 2022 [facility] AMLODIPINE BESYLATE (AMLODIPINE BESYLATE), 5 MG, TABLET, ORAL, [employer] 1000 ea. BOTTLE Active [id number] 4 2023 90 Pharmac y Data Transac tion Service Facilit y AMLODIPINE BESYLATE (amlodipine besylate), 5 MG, TABLET, ORAL, [employer], 1000 ea. BOTTLE Active [id number] 4 2023 90 Pharmac y Data Transac tion Service Facilit y AMLODIPINE BESYLATE 2.5MG TAB TAKE TWO TABLETS BY MOUTH EVERY MORNING ORAL ACTIVE Jagdish BARRETT N 2022 [facility] AMOX TR-POTASSIU M CLAVULANATE (AMOXICILLI N/POTASSIUM CLAV), 875-125 MG, TABLET, ORAL, [employer] [facility], 20 ea. BOTTLE Active [id number] 3 2022 14 Pharmac y Data Transac tion Service Facilit y AMOXICILLIN -CLAVULANAT E POTASS (amoxicilli n/potassium clavulanate ), 875-125 MG, TABLET, ORAL, [employer],, 20 ea. BOTTLE Active [id number] 2023 20 Pharmac y Data Transac tion Service Facilit y AMOXICILLIN -CLAVULANAT E POTASS (amoxicilli n/potassium clavulanate ), 875-125 MG, TABLET, ORAL, [employer],, 20 ea. BOTTLE Active [id number] 2023 56 Pharmac y Data Transac tion Service Facilit y ARIPIPRAZOL E (aripiprazo le), 2 MG, TABLET, ORAL, [employer], 500 ea. BOTTLE Active [id number] 4 2023 180 Pharmac y Data Transac tion Service Facilit y ARIPIPRAZOL E (aripiprazo le), 2 MG, TABLET, ORAL, [employer], 500 ea. BOTTLE Active [id number] 2023 180 Pharmac y Data Transac tion Service Facilit y ARIPIPRAZOL E TAB TAKE 2MG BY MOUTH TWICE A DAY ORAL ACTIVE Jey HANSON M 2021 [facility] ATIVAN (LORAZEPAM) , 0.5 MG, TABLET, ORAL, [employer], 100 ea. BOTTLE Active [id number] 2023 120 Pharmac y Data Transac tion Service Facilit y ATORVASTATI N CA 80MG TAB TAKE ONE-HALF TABLET BY MOUTH EVERY DAY ORAL ACTIVE Jey HANSON M 2021 [facility] ATORVASTATI N CALCIUM (atorvastat in calcium), 40 MG, TABLET, ORAL, [employer] I, 1000 ea. BOTTLE Active [id number] 2023 90 Pharmac y Data Transac tion Service Facilit y ATORVASTATI N CALCIUM (atorvastat in calcium), 40 MG, TABLET, ORAL, [employer] I, 1000 ea. BOTTLE Active [id number] 2023 90 Pharmac y Data Transac tion Service Facilit y BACLOFEN (baclofen), 20 MG, TABLET, ORAL, [employer] 1000 ea. BOTTLE Active [id number] 2023 540 Pharmac y Data Transac tion Service Facilit y BACLOFEN (baclofen), 20 MG, TABLET, ORAL, [employer] 1000 ea. BOTTLE Active [id number] 2023 540 Pharmac y Data Transac tion Service Facilit y BACLOFEN 20MG TAB TAKE TWO TABLETS BY MOUTH THREE TIMES A DAY ORAL ACTIVE Jagdish BARRETT 2022 [facility] BUPROPION HCL 150MG 12HR TAB,SA TAKE ONE TABLET BY MOUTH TWICE A DAY ORAL ACTIVE Jey HANSON M 2021 [facility] BUPROPION HCL SR (bupropion HCl), 150 MG, TAB SR 12H, ORAL, [employer], 60 ea. BOTTLE Active [id number] 2023 180 Pharmac y Data Transac tion Service Facilit y BUPROPION HCL SR (bupropion HCl), 150 MG, TAB SR 12H, ORAL, [employer], 60 ea. BOTTLE Active [id number] 2023 180 Pharmac y Data Transac tion Service Facilit y CEPHALEXIN 250MG CAP TAKE 1 CAPSULE BY MOUTH EVERY DAY ORAL ACTIVE MARGIEJey SB Clemente 2021 [facility] CHOLECALCIF GILSON 25MCG (1,000UNIT) TAB TAKE ONE TABLET BY MOUTH EVERY DAY ORAL ACTIVE MARGIEJey Clemente 2021 [facility] CIPROFLOXAC IN HCL (CIPROFLOXA SHAR HCL), 750 MG, TABLET, ORAL, [employer], 50 ea. BOTTLE Active [id number] 4 2023 70 Pharmac y Data Transac tion Service Facilit y DONEPEZIL HCL (DONEPEZIL HCL), 5 MG, TABLET, ORAL, [employer] 1000 ea. BOTTLE Active [id number] 2023 90 Pharmac y Data Transac tion Service Facilit y DONEPEZIL HCL (DONEPEZIL HCL), 5 MG, TABLET, ORAL, [employer] 1000 ea. BOTTLE Cancele d [id number] : 2023 0 Pharmac y Data Transac tion Service Facilit y DONEPEZIL HCL (DONEPEZIL HCL), 5 MG, TABLET, ORAL, [employer] 1000 ea. BOTTLE Active [id number] 2023 90 Pharmac y Data Transac tion Service Facilit y DONEPEZIL HCL 10MG TAB TAKE ONE-HALF TABLET BY MOUTH EVERY DAY ORAL ACTIVE CAROLYNNJey SB 2021 [facility] DULOXETINE HCL (duloxetine HCl), 60 MG, CAPSULE DR, ORAL, [employer] 1000 ea. BOTTLE Active [id number] 2023 180 Pharmac y Data Transac tion Service Facilit y DULOXETINE HCL (duloxetine HCl), 60 MG, CAPSULE DR, ORAL, [employer] 1000 ea. BOTTLE Active [id number] 2023 180 Pharmac y Data Transac tion Service Facilit y DULOXETINE HCL 30MG CAP,EC TAKE 2 CAPSULES BY MOUTH TWICE A DAY ORAL ACTIVE CAROLYNNJey SB 2021 [facility] FAMOTIDINE (famotidine ), 20 MG, TABLET, ORAL, [employer] 1000 ea. BOTTLE Active [id number] 2023 180 Pharmac y Data Transac tion Service Facilit y FAMOTIDINE 20MG TAB TAKE ONE TABLET BY MOUTH TWICE A DAY ORAL ACTIVE MARGIEJey SB 2021 [facility] FUROSEMIDE (furosemide ), 40 MG, TABLET, ORAL, [employer], 1000 ea. BOTTLE Active [id number] 2023 180 Pharmac y Data Transac tion Service Facilit y FUROSEMIDE (furosemide ), 40 MG, TABLET, ORAL, [employer] [facility], 1000 ea. BOTTLE Active [id number] 2023 180 Pharmac y Data Transac tion Service Facilit y FUROSEMIDE 40MG TAB TAKE ONE TABLET BY MOUTH TWICE A DAY ORAL ACTIVE MARGIEJey Clemente 2021 [facility] GABAPENTIN (gabapentin ), 400 MG, CAPSULE, ORAL, [employer] 500 ea. BOTTLE Active [id number] 2023 270 Pharmac y Data Transac tion Service Facilit y GABAPENTIN (gabapentin ), 400 MG, CAPSULE, ORAL, [employer], 500 ea. BOTTLE Active [id number] 4 2023 270 Pharmac y Data Transac tion Service Facilit y GABAPENTIN (gabapentin ), 400 MG, CAPSULE, ORAL, [employer], 500 ea. BOTTLE Cancele d [id number] : 2023 0 Pharmac y Data Transac tion Service Facilit y GABAPENTIN 400MG CAP TAKE 1 CAPSULE BY MOUTH THREE TIMES A DAY ORAL ACTIVE Jey HANSON 2021 [facility] LORAZEPAM (lorazepam) , 0.5 MG, TABLET, ORAL, [employer], 500 ea. BOTTLE Active [id number] 2023 120 Pharmac y Data Transac tion Service Facilit y LORAZEPAM (lorazepam) , 0.5 MG, TABLET, ORAL, [employer], 1000 ea. BOTTLE Active [id number] 2023 120 Pharmac y Data Transac tion Service Facilit y LORAZEPAM (lorazepam) , 0.5 MG, TABLET, ORAL, [employer], 1000 ea. BOTTLE Active [id number] 2023 120 Pharmac y Data Transac tion Service Facilit y LORAZEPAM (lorazepam) , 0.5 MG, TABLET, ORAL, [employer], 1000 ea. BOTTLE Active [id number] 2023 120 Pharmac y Data Transac tion Service Facilit y LORAZEPAM (lorazepam) , 0.5 MG, TABLET, ORAL, [employer], 500 ea. BOTTLE Active [id number] 2023 120 Pharmac y Data Transac tion Service Facilit y LORAZEPAM 0.5MG TAB TAKE ONE TABLET BY MOUTH THREE TIMES A DAY AND TAKE TWO TABLETS BY MOUTH AT BEDTIME ORAL ACTIVE Jagdish BARRETT 2022 [facility] MILK OF MAGNESIA TAKE 30ML BY MOUTH EVERY DAY NEEDED ORAL ACTIVE Jey HANSON 2021 [facility] MULTIVITAMI NS CAP/TAB TAKE ONE TABLET BY MOUTH EVERY DAY ORAL ACTIVE Jey HANSON Bryn 2021 [facility] NALOXONE HCL 4MG/SPRAY SOLN,SPRAY, NASAL SPRAY 1 DOSE IN ONE NOSTRIL DIRECTED PRN NASAL ACTIVE Jagdish BARRETT N 2022 [facility] OXYCODONE HCL (OXYCODONE HCL), 10 MG, TABLET, ORAL, [employer] 100 ea. BOTTLE Active [id number] 2023 120 Pharmac y Data Transac tion Service Facilit y OXYCODONE HCL (OXYCODONE HCL), 10 MG, TABLET, ORAL, [employer] 100 ea. BOTTLE Active [id number] 2023 120 Pharmac y Data Transac tion Service Facilit y OXYCODONE HCL (OXYCODONE HCL), 10 MG, TABLET, ORAL, [employer] 100 ea. BOTTLE Active [id number] 2023 120 Pharmac y Data Transac tion Service Facilit y OXYCODONE HCL (OXYCODONE HCL), 10 MG, TABLET, ORAL, [employer] 100 ea. BOTTLE Active [id number] 2023 120 Pharmac y Data Transac tion Service Facilit y OXYCODONE HCL (OXYCODONE HCL), 10 MG, TABLET, ORAL, [employer] 100 ea. BOTTLE Active [id number] 2023 120 Pharmac y Data Transac tion Service Facilit y OXYCODONE HCL (OXYCODONE HCL), 10 MG, TABLET, ORAL, [employer] 100 ea. BOTTLE Active [id number] 2022 120 Pharmac y Data Transac tion Service Facilit y OXYCODONE HCL 5MG TAB TAKE TWO TABLETS BY MOUTH FOUR TIMES A DAY ORAL ACTIVE Jagdish BARRETT N 2022 [facility] POTASSIUM CHLORIDE (potassium chloride), 10 MEQ, TAB ER PRT, ORAL, [employer], 100 ea. BOTTLE Active [id number] 2023 180 Pharmac y Data Transac tion Service Facilit y POTASSIUM CHLORIDE (potassium chloride), 10 MEQ, TAB ER PRT, ORAL, [employer], 100 ea. BOTTLE Active [id number] 2023 180 Pharmac y Data Transac tion Service Facilit y POTASSIUM CHLORIDE (potassium chloride), 20 MEQ, TAB ER PRT, ORAL, [employer], 100 ea. BOTTLE Active [id number] 3 2023 90 Pharmac y Data Transac tion Service Facilit y POTASSIUM CHLORIDE 20MEQ TAB,SA (DISPERSIBL E) TAKE ONE TABLET BY MOUTH TWICE A DAY ORAL ACTIVE Jey HANSON 2021 [facility] (collagenas e Clostridium histolyticu m), 250 UNIT/G, OINT. (G), TOPICAL, WHITLOCK&N/UNI LUIS, 30 g TUBE Cancele d [id number] : 2023 0 Pharmac y Data Transac tion Service Facilit y WARFARIN SODIUM (warfarin sodium), 5 MG, TABLET, ORAL, [employer] 1000 ea. BOTTLE Cancele d [id number] : 2022 0 Pharmac y Data Transac tion Service Facilit y WARFARIN SODIUM (WARFARIN SODIUM), 5 MG, TABLET, ORAL, [employer], 1000 ea. BOTTLE Active [id number] 2023 12 Pharmac y Data Transac tion Service Facilit y WARFARIN SODIUM (WARFARIN SODIUM), 5 MG, TABLET, ORAL, [employer], 1000 ea. BOTTLE Active [id number] 2023 40 Pharmac y Data Transac tion Service Facilit y WARFARIN SODIUM (WARFARIN SODIUM), 5 MG, TABLET, ORAL, [employer], 1000 ea. BOTTLE Cancele d [id number] : 2022 0 Pharmac y Data Transac tion Service Facilit y WARFARIN SODIUM (warfarin sodium), 7.5 MG, TABLET, ORAL, [employer], 100 ea. BOTTLE Active [id number] 2023 51 Pharmac y Data Transac tion Service Facilit y WARFARIN SODIUM (warfarin sodium), 7.5 MG, TABLET, ORAL, [employer], 100 ea. BOTTLE Active [id number] 2023 78 Pharmac y Data Transac tion Service Facilit y WARFARIN TAB TAKE 5MG BY MOUTH SUN/THUR S AND TAKE 7.5MG BY MOUTH ALL OTHER DAYS ORAL ACTIVE Jagdish BARRETT 2022 [facility] Allergies, Adverse Reactions, Alerts Combined list of allergies from Department of [facility] and 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 It does not include entries that were removed or entered in error. Substance Category Reaction Severity Reaction type Status Date Reported Comments Source AMOXICILLIN Propensity to adverse reactions to drug (finding) Eruption active 2 [facility] METOLAZONE Propensity to adverse reactions to drug (finding) Itching active 2 [facility] MORPHINE Propensity to adverse reactions to drug (finding) Delirium active 2 [facility] PIPERACILLIN Propensity to adverse reactions to drug (finding) Eruption active 2 [facility] SULFA DRUGS Propensity to adverse reactions to drug (finding) Eruption active 2 [facility] TAZOBACTAM SODIUM Propensity to adverse reactions to drug (finding) Eruption active 2 [facility] Immunizations Combined list of available immunizations from the Department of [facility] and Veterans [facility] facilities. Immunization Series Date Given Administered By Site Reaction Lot Number CVX Code Drug [employer] Wiring Technician Status Comments Source INFLUENZA, UNSPECIFIED FORMULATION 2021 [...] CONJUGATE PCV 13 2014 133 complet ed [facility] ZOSTER LIVE 2012 121 complet ed [facility] PNEUMOCOCCAL POLYSACCHARID E PPV23 2010 33 complet ed [facility] TDAP 2010 115 complet ed [facility] Results Combined list of recent [...] Feb 05, 2023 03:10 PM Reporting Lab: [facility] [address] Performing Lab: [facility] [address] [facility] CYSTATIN C WITH EGFR CYSTATIN C AND GLOMERULAR FILTRATION RATE BY CYSTATIN C-BASED FORMULA PANEL - SERUM OR PLASMA 53 60 02/13 L Specimen Type: PLASMA No comment entered. Ordering Provider: ANKUSH BOWMAN Report Released Date/Time: Feb 05, 2023 03:10 PM Reporting Lab: [facility] [address] Performing Lab: [facility] [address] [place] [facility] BASIC METABOLI C PANEL+MG CREATININE [MASS/VOLU ME] IN SERUM OR PLASMA 0.7 mg/dL 0.7 - 1.2 02/13 Specimen Type: PLASMA No comment entered. Ordering Provider: ANKUSH BOWMAN Report Released Date/Time: Feb 05, 2023 03:10 PM Reporting Lab: [facility] [address] Performing Lab: [facility] [address] [place] [facility] BASIC METABOLI C PANEL+MG UREA NITROGEN [MASS/VOLU ME] IN SERUM OR PLASMA 15 mg/dL 8 - 26 02/13 Specimen Type: PLASMA No comment entered. Ordering Provider: ANKUSH BOWMAN Report Released Date/Time: Feb 05, 2023 03:10 PM Reporting Lab: [facility] [address] Performing Lab: [facility] [address] [place] [facility] BASIC METABOLI C PANEL+MG GLUCOSE [MASS/VOLU ME] IN SERUM OR PLASMA 140 mg/dL 70 - 100 02/13 H Specimen Type: PLASMA No comment entered. Ordering Provider: ANKUSH BOWMAN Report Released Date/Time: Feb 05, 2023 03:10 PM Reporting Lab: [facility] [address] Performing Lab: [facility] [address] [place] [facility]IC METABOLI C PANEL+MG SODIUM [MOLES/VOL UME] IN SERUM OR PLASMA 135 mmol/L 136 - 145 02/13 L Specimen Type: PLASMA No comment entered. Ordering Provider: ANKUSH BOWMAN Report Released Date/Time: Feb 05, 2023 03:10 PM Reporting Lab: [facility] [address] Performing Lab: [facility] [address] [place] [facility] BASIC METABOLI C PANEL+MG POTASSIUM [MOLES/VOL UME] IN SERUM OR PLASMA 4.0 mmol/L 3.5 - 5.1 02/13 Specimen Type: PLASMA No comment entered. Ordering Provider: ANKUSH BOWMAN Report Released Date/Time: Feb 05, 2023 03:10 PM Reporting Lab: [facility] [address] Performing Lab: [facility] [address] [place] [facility] METABOLI C PANEL+MG CHLORIDE [MOLES/VOL UME] IN SERUM OR PLASMA 99 mmol/L 98 - 107 02/13 Specimen Type: PLASMA No comment entered. Ordering Provider: ANKUSH BOWMAN Report Released Date/Time: Feb 05, 2023 03:10 PM Reporting Lab: [facility] [address] Performing Lab: [facility] [address] [place] [facility]IC METABOLI C PANEL+MG CARBON DIOXIDE, TOTAL [MOLES/VOL UME] IN SERUM OR PLASMA 29 mmol/L 22 - 29 02/13 Specimen Type: PLASMA No comment entered. Ordering Provider: ANKUSH BOWMAN Report Released Date/Time: Feb 05, 2023 03:10 PM Reporting Lab: [facility] [address] Performing Lab: [facility] [address] [place] [facility] BASIC METABOLI C PANEL+MG CALCIUM [MASS/VOLU ME] IN SERUM OR PLASMA 9.2 mg/dL 8.4 - 10.2 02/13 Specimen Type: PLASMA No comment entered. Ordering Provider: ANKUSH BOWMAN Report Released Date/Time: Feb 05, 2023 03:10 PM Reporting Lab: [facility] [address] Performing Lab: [facility] [address] [place] [facility] BASIC METABOLI C PANEL+MG MAGNESIUM [MASS/VOLU ME] IN SERUM OR PLASMA 2.0 mg/dL 1.6 - 2.6 02/13 Specimen Type: PLASMA No comment entered. Ordering Provider: ANKUSH BOWMAN Report Released Date/Time: Feb 05, 2023 03:10 PM Reporting Lab: [facility] [address] Performing Lab: [facility] [address] [place] [facility] BASIC METABOLI C PANEL+MG ANION GAP IN SERUM OR PLASMA 7 mmol/L 5 - 15 02/13 Specimen Type: PLASMA No comment entered. Ordering Provider: ANKUSH BOWMAN Report Released Date/Time: Feb 05, 2023 03:10 PM Reporting Lab: [facility] [address] Performing Lab: [facility] [address] [place] [facility] BAS[facility] METABOLI C PANEL+MG GLOMERULAR FILTRATION RATE/1.73 SQ M.PREDICTE D [VOLUME RATE/AREA] IN SERUM, PLASMA OR BLOOD BY CREATININE -BASED FORMULA (CKD-EPI) >90 60 02/13 Specimen Type: PLASMA No comment entered. Ordering Provider: ANKUSH BOWMAN Report Released Date/Time: Feb 05, 2023 03:10 PM Reporting Lab: [facility] [address] Performing Lab: [facility] [address] [place] [facility] URINALYS IS COLOR OF URINE YELLOW 10/08 Specimen Type: URINE No comment entered. Ordering Provider: ANKUSH BOWMAN Report Released Date/Time: Sep 24, 2022 01:55 PM Reporting Lab: [facility] [address] Performing Lab: [facility] [address] [place] [facility] URINALYS IS SPECIFIC GRAVITY OF URINE 1.023 1.003 - 1.035 10/08 Specimen Type: URINE No comment entered. Ordering Provider: ANKUSH BOWMAN Report Released Date/Time: Sep 24, 2022 01:55 PM Reporting Lab: [facility] [address] Performing Lab: [facility] [address] [place] [facility] URINALYS IS BILIRUBIN. TOTAL [PRESENCE] IN URINE BY TEST STRIP NEGATIVE 10/08 Specimen Type: URINE No comment entered. Ordering Provider: ANKUSH BOWMAN Report Released Date/Time: Sep 24, 2022 01:55 PM Reporting Lab: [facility] [address] Performing Lab: [facility] [address] [place] [facility] URINALYS IS KETONES [MASS/VOLU ME] IN URINE BY TEST STRIP NEGATIVE 10/08 Specimen Type: URINE No comment entered. Ordering Provider: ANKUSH BOWMAN Report Released Date/Time: Sep 24, 2022 01:55 PM Reporting Lab: [facility] [address] Performing Lab: [facility] [address] [place] [facility] URINALYS IS GLUCOSE [MASS/VOLU ME] IN URINE BY TEST STRIP NEGATIVE mg/dL <30 - 30 10/08 Specimen Type: URINE No comment entered. Ordering Provider: ANKUSH BOWMAN Report Released Date/Time: Sep 24, 2022 01:55 PM Reporting Lab: [facility] [address] Performing Lab: [facility] [address] [place] [facility] URINALYS IS PROTEIN [MASS/VOLU ME] IN URINE BY TEST STRIP 30 mg/dL <20 - 20 10/08 Specimen Type: URINE No comment entered. Ordering Provider: ANKUSH BOWMAN Report Released Date/Time: Sep 24, 2022 01:55 PM Reporting Lab: [facility] [address] Performing Lab: [facility] [address] [place] [facility] URINALYS IS PH OF URINE BY TEST STRIP 7.5 5.0 - 8.0 10/08 Specimen Type: URINE No comment entered. Ordering Provider: ANKUSH BOWMAN Report Released Date/Time: Sep 24, 2022 01:55 PM Reporting Lab: [facility] [address] Performing Lab: [facility] [address] [place] [facility] URINALYS IS LEUKOCYTES [#/AREA] IN URINE SEDIMENT BY MICROSCOPY HIGH POWER FIELD >180/[HP F] 0 - 7 10/08 H Specimen Type: URINE No comment entered. Ordering Provider: ANKUSH BOWMAN Report Released Date/Time: Sep 24, 2022 01:55 PM Reporting Lab: [facility] [address] Performing Lab: [facility] [address] [place] [facility] URINALYS IS BACTERIA [PRESENCE] IN URINE SEDIMENT BY LIGHT MICROSCOPY MANY 10/08 Specimen Type: URINE No comment entered. Ordering Provider: ANKUSH BOWMAN Report Released Date/Time: Sep 24, 2022 01:55 PM Reporting Lab: [facility] [address] Performing Lab: [facility] [address] [place] [facility] URINALYS IS ERYTHROCYT ES [#/AREA] IN URINE SEDIMENT BY MICROSCOPY HIGH POWER FIELD 33 /[HPF] 0 - 3 10/08 H Specimen Type: URINE No comment entered. Ordering Provider: ANKUSH BOWMAN Report Released Date/Time: Sep 24, 2022 01:55 PM Reporting Lab: [facility] [address] Performing Lab: [facility] [address] [place] [facility] URINALYS IS APPEARANCE OF URINE EX.TURBI D 10/08 Specimen Type: URINE No comment entered. Ordering Provider: ANKUSH BOWMAN Report Released Date/Time: Sep 24, 2022 01:55 PM Reporting Lab: [facility] [address] Performing Lab: [facility] [address] [place] [facility] URINALYS IS EPITHELIAL CELLS.SQUA MOUS [#/AREA] IN URINE SEDIMENT BY MICROSCOPY HIGH POWER FIELD 1 /[HPF] 10/08 Specimen Type: URINE No comment entered. Ordering Provider: ANKUSH BOWMAN Report Released Date/Time: Sep 24, 2022 01:55 PM Reporting Lab: [facility] [address] Performing Lab: [facility] [address] [place] [facility] URINALYS IS HEMOGLOBIN [PRESENCE] IN URINE BY TEST STRIP 1+ 10/08 Specimen Type: URINE No comment entered. Ordering Provider: ANKUSH BOWMAN Report Released Date/Time: Sep 24, 2022 01:55 PM Reporting Lab: [facility] [id number] Performing Lab: [facility] [id number] [place] [facility] URINAL[facility] IS NITRITE [PRESENCE] IN URINE BY TEST STRIP NEGATIVE 10/08 Specimen Type: URINE No comment entered. Ordering Provider: ANKUSH BOWMAN Report Released Date/Time: Sep 24, 2022 01:55 PM Reporting Lab: [facility] [id number] Performing Lab: [facility] [id number] [place] [facility] URINAL[facility] IS LEUKOCYTE CLUMPS [#/VOLUME] IN URINE BY AUTOMATED COUNT PRESENT 10/08 Specimen Type: URINE No comment entered. Ordering Provider: ANKUSH BOWMAN Report Released Date/Time: Sep 24, 2022 01:55 PM Reporting Lab: [facility] [address] Performing Lab: [facility] [address] [place] [facility] URINALYS IS LEUKOCYTE ESTERASE [PRESENCE] IN URINE BY TEST STRIP 500 10/08 Specimen Type: URINE No comment entered. Ordering Provider: ANKUSH BOWMAN Report Released Date/Time: Sep 24, 2022 01:55 PM Reporting Lab: [facility] [address] Performing Lab: [facility] [address] [place] [facility] ALBUMIN ALBUMIN [MASS/VOLU ME] IN SERUM OR PLASMA 4.2 g/dL 3.5 - 5.2 10/08 Specimen Type: PLASMA No comment entered. Ordering Provider: ANKUSH BOWMAN Report Released Date/Time: Sep 24, 2022 01:55 PM Reporting Lab: [facility] [address] Performing Lab: [facility] [address] [place] [facility] PRE-ALBU MIN PREALBUMIN [MASS/VOLU ME] IN SERUM OR PLASMA 28.4 mg/dL 14.0 - 45.0 10/08 Specimen Type: SERUM No comment entered. Ordering Provider: ANKUSH BOWMAN Report Released Date/Time: Sep 24, 2022 01:55 PM Reporting Lab: [facility] [address] Performing Lab: [facility] [address] [place] [facility] COMPREHE NSIVE METABOLI C PANEL+MG CREATININE [MASS/VOLU ME] IN SERUM OR PLASMA 0.7 mg/dL 0.7 - 1.2 10/08 Specimen Type: PLASMA No comment entered. Ordering Provider: ANKUSH BOWMAN Report Released Date/Time: Sep 24, 2022 01:55 PM Reporting Lab: [facility] [address] Performing Lab: [facility] [address] [place] [facility] COMPREHE NSIVE METABOLI C PANEL+MG UREA NITROGEN [MASS/VOLU ME] IN SERUM OR PLASMA 16 mg/dL 8 - 26 10/08 Specimen Type: PLASMA No comment entered. Ordering Provider: ANKUSH BOWMAN Report Released Date/Time: Sep 24, 2022 01:55 PM Reporting Lab: [facility] [address] Performing Lab: [facility] [address] [place] [facility] COMPREHE NSIVE METABOLI C PANEL+MG GLUCOSE [MASS/VOLU ME] IN SERUM OR PLASMA 94 mg/dL 70 - 100 10/08 Specimen Type: PLASMA No comment entered. Ordering Provider: ANKUSH BOWMAN Report Released Date/Time: Sep 24, 2022 01:55 PM Reporting Lab: [facility] [address] Performing Lab: [facility] [address] [place] [facility] COMPREHE NSIVE METABOLI C PANEL+MG SODIUM [MOLES/VOL UME] IN SERUM OR PLASMA 138 mmol/L 136 - 145 10/08 Specimen Type: PLASMA No comment entered. Ordering Provider: ANKUSH BOWMAN Report Released Date/Time: Sep 24, 2022 01:55 PM Reporting Lab: [facility] [address] Performing Lab: [facility] [address] [place] [facility] COMPREHE NSIVE METABOLI C PANEL+MG POTASSIUM [MOLES/VOL UME] IN SERUM OR PLASMA 3.9 mmol/L 3.5 - 5.1 10/08 Specimen Type: PLASMA No comment entered. Ordering Provider: ANKUSH BOWMAN Report Released Date/Time: Sep 24, 2022 01:55 PM Reporting Lab: [facility] [address] Performing Lab: [facility] [address] [place] [facility] COMPREHE NSIVE METABOLI C PANEL+MG CHLORIDE [MOLES/VOL UME] IN SERUM OR PLASMA 101 mmol/L 98 - 107 10/08 Specimen Type: PLASMA No comment entered. Ordering Provider: ANKUSH BOWMAN Report Released Date/Time: Sep 24, 2022 01:55 PM Reporting Lab: [facility] [address] Performing Lab: [facility] [address] [place] [facility] COMPREHE NSIVE METABOLI C PANEL+MG CARBON DIOXIDE, TOTAL [MOLES/VOL UME] IN SERUM OR PLASMA 28 mmol/L 22 - 29 10/08 Specimen Type: PLASMA No comment entered. Ordering Provider: ANKUSH BOWMAN Report Released Date/Time: Sep 24, 2022 01:55 PM Reporting Lab: [facility] [address] Performing Lab: [facility] [address] [place] [facility] COMPREHE NSIVE METABOLI C PANEL+MG CALCIUM [MASS/VOLU ME] IN SERUM OR PLASMA 9.7 mg/dL 8.4 - 10.2 10/08 Specimen Type: PLASMA No comment entered. Ordering Provider: ANKUSH BOWMAN Report Released Date/Time: Sep 24, 2022 01:55 PM Reporting Lab: [facility] [address] Performing Lab: [facility] [address] [place] [facility] COMPREHE NSIVE METABOLI C PANEL+MG PROTEIN [MASS/VOLU ME] IN SERUM OR PLASMA 7.6 g/dL 6.0 - 8.3 10/08 Specimen Type: PLASMA No comment entered. Ordering Provider: ANKUSH BOWMAN Report Released Date/Time: Sep 24, 2022 01:55 PM Reporting Lab: [facility] [address] Performing Lab: [facility] [address] [place] [facility] COMPREHE NSIVE METABOLI C PANEL+MG ALBUMIN [MASS/VOLU ME] IN SERUM OR PLASMA 4.2 g/dL 3.5 - 5.2 10/08 Specimen Type: PLASMA No comment entered. Ordering Provider: ANKUSH BOWMAN Report Released Date/Time: Sep 24, 2022 01:55 PM Reporting Lab: [facility] [address] Performing Lab: [facility] [address] [place] [facility] COMPREHE NSIVE METABOLI C PANEL+MG BILIRUBIN. TOTAL [MASS/VOLU ME] IN SERUM OR PLASMA 0.6 mg/dL 0.2 - 1.2 10/08 Specimen Type: PLASMA No comment entered. Ordering Provider: ANKUSH BOWMAN Report Released Date/Time: Sep 24, 2022 01:55 PM Reporting Lab: [facility] [address] Performing Lab: [facility] [address] [place] [facility] COMPREHE NSIVE METABOLI C PANEL+MG MAGNESIUM [MASS/VOLU ME] IN SERUM OR PLASMA 2.1 mg/dL 1.6 - 2.6 10/08 Specimen Type: PLASMA No comment entered. Ordering Provider: ANKUSH BOWMAN Report Released Date/Time: Sep 24, 2022 01:55 PM Reporting Lab: [facility] [address] Performing Lab: [facility] [address] [place] [facility] COMPREHE NSIVE METABOLI C PANEL+MG ANION GAP IN SERUM OR PLASMA 9 mmol/L 5 - 15 10/08 Specimen Type: PLASMA No comment entered. Ordering Provider: ANKUSH BOWMAN Report Released Date/Time: Sep 24, 2022 01:55 PM Reporting Lab: [facility] [address] Performing Lab: [facility] [address] [facility] COMPREHE NSIVE METABOLI C PANEL+MG ALKALINE PHOSPHATAS E [ENZYMATIC ACTIVITY/V OLUME] IN SERUM OR PLASMA 96 U/L 40 - 150 10/08 Specimen Type: PLASMA No comment entered. Ordering Provider: ANKUSH BOWMAN Report Released Date/Time: Sep 24, 2022 01:55 PM Reporting Lab: [facility] [address] Performing Lab: [facility] [address] [facility] COMPREHE NSIVE METABOLI C PANEL+MG ALANINE AMINOTRANS FERASE [ENZYMATIC ACTIVITY/V OLUME] IN SERUM OR PLASMA 29 U/L <55 - 55 10/08 Specimen Type: PLASMA No comment entered. Ordering Provider: ANKUSH BOWMAN Report Released Date/Time: Sep 24, 2022 01:55 PM Reporting Lab: [facility] [address] Performing Lab: [facility] [address] [place] [facility] COMPREHE NSIVE METABOLI C PANEL+MG ASPARTATE AMINOTRANS FERASE [ENZYMATIC ACTIVITY/V OLUME] IN SERUM OR PLASMA 22 U/L <34 - 34 10/08 Specimen Type: PLASMA No comment entered. Ordering Provider: ANKUSH BOWMAN Report Released Date/Time: Sep 24, 2022 01:55 PM Reporting Lab: [facility] [address] Performing Lab: [facility] [address] [place] [facility] COMPREHE NSIVE METABOLI C PANEL+MG GLOMERULAR FILTRATION RATE/1.73 SQ M.PREDICTE D [VOLUME RATE/AREA] IN SERUM, PLASMA OR BLOOD BY CREATININE -BASED FORMULA (CKD-EPI) >90 60 10/08 Specimen Type: PLASMA No comment entered. Ordering Provider: ANKUSH BOWMAN Report Released Date/Time: Sep 24, 2022 01:55 PM Reporting Lab: [facility] [address] Performing Lab: [facility] [address] [place] [facility] CBC & DIFF LEUKOCYTES [#/VOLUME] IN BLOOD BY AUTOMATED COUNT 7.32 10*3/uL 4.0 - 11.0 10/08 Specimen Type: BLOOD Comment: Automated Differentia l Performed Ordering Provider: ANKUSH BOWMAN Report Released Date/Time: Sep 24, 2022 01:55 PM Reporting Lab: [facility] [address] Performing Lab: [facility] [address] [place] [facility] CBC & DIFF ERYTHROCYT ES [#/VOLUME] IN BLOOD BY AUTOMATED COUNT 4.80 10*6/uL 4.6 - 6.2 10/08 Specimen Type: BLOOD Comment: Automated Differentia l Performed Ordering Provider: ANKUSH BOWMAN Report Released Date/Time: Sep 24, 2022 01:55 PM Reporting Lab: [facility] [address] Performing Lab: [facility] [address] [place] [facility] CBC & DIFF HEMOGLOBIN [MASS/VOLU ME] IN BLOOD 14.7 g/dL 13.5 - 17.9 10/08 Specimen Type: BLOOD Comment: Automated Differentia l Performed Ordering Provider: ANKUSH BOWMAN Report Released Date/Time: Sep 24, 2022 01:55 PM Reporting Lab: [facility] [address] Performing Lab: [facility] [address] [place] [facility] CBC & DIFF HEMATOCRIT [VOLUME FRACTION] OF BLOOD BY AUTOMATED COUNT 44.2 41 - 54 10/08 Specimen Type: BLOOD Comment: Automated Differentia l Performed Ordering Provider: ANKUSH BOWMAN Report Released Date/Time: Sep 24, 2022 01:55 PM Reporting Lab: [facility] [address] Performing Lab: [facility] [address] [place] [facility] CBC & DIFF MCV [ENTITIC VOLUME] BY AUTOMATED COUNT 92.1 fL 80 - 100 10/08 Specimen Type: BLOOD Comment: Automated Differentia l Performed Ordering Provider: ANKUSH BOWMAN Report Released Date/Time: Sep 24, 2022 01:55 PM Reporting Lab: [facility] [address] Performing Lab: [facility] [address] [place] [facility] CBC & DIFF MCH [ENTITIC MASS] BY AUTOMATED COUNT 30.6 pg 27 - 33 10/08 Specimen Type: BLOOD Comment: Automated Differentia l Performed Ordering Provider: ANKUSH BOWMAN Report Released Date/Time: Sep 24, 2022 01:55 PM Reporting Lab: [facility] [address] Performing Lab: [facility] [address] [place] [facility] CBC & DIFF MCHC [MASS/VOLU ME] BY AUTOMATED COUNT 33.3 g/dL 32.0 - 37.5 10/08 Specimen Type: BLOOD Comment: Automated Differentia l Performed Ordering Provider: ANKUSH BOWMAN Report Released Date/Time: Sep 24, 2022 01:55 PM Reporting Lab: [facility] [address] Performing Lab: [facility] [address] [place] [facility] CBC & DIFF PLATELETS [#/VOLUME] IN BLOOD BY AUTOMATED COUNT 144 10*3/uL 150 - 400 10/08 L Specimen Type: BLOOD Comment: Automated Differentia l Performed Ordering Provider: ANKUSH BOWMAN Report Released Date/Time: Sep 24, 2022 01:55 PM Reporting Lab: [facility] [address] Performing Lab: [facility] [address] [place] [facility] CBC & DIFF PLATELET MEAN VOLUME [ENTITIC VOLUME] IN BLOOD BY AUTOMATED COUNT 10.8 fL 7.4 - 10.4 10/08 H Specimen Type: BLOOD Comment: Automated Differentia l Performed Ordering Provider: ANKUSH BOWMAN Report Released Date/Time: Sep 24, 2022 01:55 PM Reporting Lab: [facility] [address] Performing Lab: [facility] [address] [place] [facility] CBC & DIFF NEUTROPHIL S/100 LEUKOCYTES IN BLOOD BY MANUAL COUNT 55.5 10/08 Specimen Type: BLOOD Comment: Automated Differentia l Performed Ordering Provider: ANKUSH BOWMAN Report Released Date/Time: Sep 24, 2022 01:55 PM Reporting Lab: [facility] [address] Performing Lab: [facility] [address] [place] [facility] CBC & DIFF LYMPHOCYTE S/100 LEUKOCYTES IN BLOOD BY MANUAL COUNT 31.4 10/08 Specimen Type: BLOOD Comment: Automated Differentia l Performed Ordering Provider: ANKUSH BOWMAN Report Released Date/Time: Sep 24, 2022 01:55 PM Reporting Lab: [facility] [address] Performing Lab: [facility] [address] [place] [facility] CBC & DIFF MONOCYTES/ 100 LEUKOCYTES IN BLOOD BY AUTOMATED COUNT 10.2 10/08 Specimen Type: BLOOD Comment: Automated Differentia l Performed Ordering Provider: ANKUSH BOWMAN Report Released Date/Time: Sep 24, 2022 01:55 PM Reporting Lab: [facility] [address] Performing Lab: [facility] [address] [place] [facility] CBC & DIFF EOSINOPHIL S/100 LEUKOCYTES IN BLOOD BY AUTOMATED COUNT 2.2 10/08 Specimen Type: BLOOD Comment: Automated Differentia l Performed Ordering Provider: ANKUSH BOWMAN Report Released Date/Time: Sep 24, 2022 01:55 PM Reporting Lab: [facility] [address] Performing Lab: [facility] [address] [place] [facility] CBC & DIFF BASOPHILS/ 100 LEUKOCYTES IN BLOOD BY MANUAL COUNT 0.4 10/08 Specimen Type: BLOOD Comment: Automated Differentia l Performed Ordering Provider: ANKUSH BOWMAN Report Released Date/Time: Sep 24, 2022 01:55 PM Reporting Lab: [facility] [address] Performing Lab: [facility] [address] [place] [facility] CBC & DIFF ERYTHROCYT E DISTRIBUTI ON WIDTH [RATIO] BY AUTOMATED COUNT 15.9 11.5 - 14.5 10/08 H Specimen Type: BLOOD Comment: Automated Differentia l Performed Ordering Provider: ANKUSH BOWMAN Report Released Date/Time: Sep 24, 2022 01:55 PM Reporting Lab: [facility] [address] Performing Lab: [facility] [address] [place] [facility] CBC & DIFF LYMPHOCYTE S [#/VOLUME] IN BLOOD BY AUTOMATED COUNT 2.30 10*3/uL 1.0 - 4.0 10/08 Specimen Type: BLOOD Comment: Automated Differentia l Performed Ordering Provider: ANKUSH BOWMAN Report Released Date/Time: Sep 24, 2022 01:55 PM Reporting Lab: [facility] [address] Performing Lab: [facility] [address] [place] [facility] CBC & DIFF MONOCYTES [#/VOLUME] IN BLOOD BY AUTOMATED COUNT 0.75 10*3/uL 0.1 - 1.0 10/08 Specimen Type: BLOOD Comment: Automated Differentia l Performed Ordering Provider: ANKUSH BOWMAN Report Released Date/Time: Sep 24, 2022 01:55 PM Reporting Lab: [facility] [address] Performing Lab: [facility] [address] [place] [facility] CBC & DIFF NEUTROPHIL S [#/VOLUME] IN BLOOD BY AUTOMATED COUNT 4.06 10*3/uL 2.0 - 7.7 10/08 Specimen Type: BLOOD Comment: Automated Differentia l Performed Ordering Provider: ANKUSH BOWMAN Report Released Date/Time: Sep 24, 2022 01:55 PM Reporting Lab: [facility] [address] Performing Lab: [facility] [address] [place] [facility] CBC & DIFF EOSINOPHIL S [#/VOLUME] IN BLOOD BY AUTOMATED COUNT 0.16 10*3/uL 0 - 0.5 10/08 Specimen Type: BLOOD Comment: Automated Differentia l Performed Ordering Provider: ANKUSH BOWMAN Report Released Date/Time: Sep 24, 2022 01:55 PM Reporting Lab: [facility] [address] Performing Lab: [facility] [address] [place] [facility] CBC & DIFF BASOPHILS [#/VOLUME] IN BLOOD BY AUTOMATED COUNT 0.03 10*3/uL 0 - 0.2 10/08 Specimen Type: BLOOD Comment: Automated Differentia l Performed Ordering Provider: ANKUSH BOWMAN Report Released Date/Time: Sep 24, 2022 01:55 PM Reporting Lab: [facility] [address] Performing Lab: [facility] [address] [place] [facility] CBC & DIFF IG(META,MY MALACHI,PRO) 0.3 10/08 Specimen Type: BLOOD Comment: Automated Differentia l Performed Ordering Provider: ANKUSH BOWMAN Report Released Date/Time: Sep 24, 2022 01:55 PM Reporting Lab: [facility] [address] Performing Lab: [facility] [address] [place] [facility] CBC & DIFF IMMATURE GRANULOCYT ES [PRESENCE] IN BLOOD BY AUTOMATED COUNT 0.02 10*3/uL 0 - 0.1 10/08 Specimen Type: BLOOD Comment: Automated Differentia l Performed Ordering Provider: ANKUSH BOWMAN Report Released Date/Time: Sep 24, 2022 01:55 PM Reporting Lab: [facility] [address] Performing Lab: [facility] [address] [place] [facility] CYSTATIN C WITH EGFR CYSTATIN C [MASS/VOLU ME] IN SERUM OR PLASMA 1.38 mg/L 0.51 - 1.05 10/08 H Specimen Type: PLASMA No comment entered. Ordering Provider: ANKUSH BOWMAN Report Released Date/Time: Sep 24, 2022 01:55 PM Reporting Lab: [facility] [address] Performing Lab: [facility] [address] [place] [facility] CYSTATIN C WITH EGFR CYSTATIN C AND GLOMERULAR FILTRATION RATE BY CYSTATIN-B ASED FORMULA PANEL - SERUM OR PLASMA 48 60 10/08 L Specimen Type: PLASMA No comment entered. Ordering Provider: ANKUSH BOWMAN Report Released Date/Time: Sep 24, 2022 01:55 PM Reporting Lab: [facility] [address] Performing Lab: [facility] [address] [place] [facility] VIT D 25-OH,TO ZAMZAM 25-HYDROXY VITAMIN D3 [MASS/VOLU ME] IN SERUM OR PLASMA 54 ng/mL 12 - 50 10/08 H Specimen Type: SERUM No comment entered. Ordering Provider: ANKUSH BOWMAN Report Released Date/Time: Sep 24, 2022 01:55 PM Reporting Lab: [facility] [address] Performing Lab: [facility] [address] [place] [facility] COMPREHE NSIVE METABOLI C PANEL+MG CREATININE [MASS/VOLU ME] IN SERUM OR PLASMA 0.7 mg/dL 0.7 - 1.2 05/28 Specimen Type: PLASMA No comment entered. Ordering Provider: GERMANIA HANSON Report Released Date/Time: May 28, 2022 03:06 PM Reporting Lab: [facility] [address] Performing Lab: [facility] [address] [facility] COMPREHE NSIVE METABOLI C PANEL+MG UREA NITROGEN [MASS/VOLU ME] IN SERUM OR PLASMA 13 mg/dL 8 - 26 05/28 Specimen Type: PLASMA No comment entered. Ordering Provider: GERMANIA HANSON Report Released Date/Time: May 28, 2022 03:06 PM Reporting Lab: [facility] [address] Performing Lab: [facility] [address] [facility] COMPREHE NSIVE METABOLI C PANEL+MG GLUCOSE [MASS/VOLU ME] IN SERUM OR PLASMA 98 mg/dL 74 - 100 05/28 Specimen Type: PLASMA No comment entered. Ordering Provider: GERMANIA HANSON Report Released Date/Time: May 28, 2022 03:06 PM Reporting Lab: [facility] [address] Performing Lab: [facility] [address] [facility] COMPREHE NSIVE METABOLI C PANEL+MG SODIUM [MOLES/VOL UME] IN SERUM OR PLASMA 138 mmol/L 136 - 145 05/28 Specimen Type: PLASMA No comment entered. Ordering Provider: GERMANIA HANSON Report Released Date/Time: May 28, 2022 03:06 PM Reporting Lab: [facility] [address] Performing Lab: [facility] [address] [facility] COMPREHE NSIVE METABOLI C PANEL+MG POTASSIUM [MOLES/VOL UME] IN SERUM OR PLASMA 4.4 mmol/L 3.5 - 5.1 05/28 Specimen Type: PLASMA No comment entered. Ordering Provider: GERMANIA HANSON Report Released Date/Time: May 28, 2022 03:06 PM Reporting Lab: [facility] [address] Performing Lab: [facility] [address] [facility] COMPREHE NSIVE METABOLI C PANEL+MG CHLORIDE [MOLES/VOL UME] IN SERUM OR PLASMA 102 mmol/L 98 - 107 05/28 Specimen Type: PLASMA No comment entered. Ordering Provider: GERMANIA HANSON Report Released Date/Time: May 28, 2022 03:06 PM Reporting Lab: [facility] [address] Performing Lab: [facility] [address] [facility] COMPREHE NSIVE METABOLI C PANEL+MG CARBON DIOXIDE, TOTAL [MOLES/VOL UME] IN SERUM OR PLASMA 28 mmol/L 22 - 29 05/28 Specimen Type: PLASMA No comment entered. Ordering Provider: GERMANIA HANSON Report Released Date/Time: May 28, 2022 03:06 PM Reporting Lab: [facility] [address] Performing Lab: [facility] [address] [facility] COMPREHE NSIVE METABOLI C PANEL+MG CALCIUM [MASS/VOLU ME] IN SERUM OR PLASMA 9.4 mg/dL 8.4 - 10.2 05/28 Specimen Type: PLASMA No comment entered. Ordering Provider: GERMANIA HANSON Report Released Date/Time: May 28, 2022 03:06 PM Reporting Lab: [facility] [address] Performing Lab: [facility] [address] [facility] COMPREHE NSIVE METABOLI C PANEL+MG PROTEIN [MASS/VOLU ME] IN SERUM OR PLASMA 7.6 g/dL 6.0 - 8.3 05/28 Specimen Type: PLASMA No comment entered. Ordering Provider: GERMANIA HANSON Report Released Date/Time: May 28, 2022 03:06 PM Reporting Lab: [facility] [address] Performing Lab: [facility] [address] [facility] COMPREHE NSIVE METABOLI C PANEL+MG ALBUMIN [MASS/VOLU ME] IN SERUM OR PLASMA 4.0 g/dL 3.5 - 5.2 05/28 Specimen Type: PLASMA No comment entered. Ordering Provider: GERMANIA HANSON Report Released Date/Time: May 28, 2022 03:06 PM Reporting Lab: [facility] [address] Performing Lab: [facility] [address] [facility] COMPREHE NSIVE METABOLI C PANEL+MG BILIRUBIN. TOTAL [MASS/VOLU ME] IN SERUM OR PLASMA 0.5 mg/dL 0.2 - 1.2 05/28 Specimen Type: PLASMA No comment entered. Ordering Provider: GERMANIA HANSON Report Released Date/Time: May 28, 2022 03:06 PM Reporting Lab: [facility] [address] Performing Lab: [facility] [address] [facility] COMPREHE NSIVE METABOLI C PANEL+MG MAGNESIUM [MASS/VOLU ME] IN SERUM OR PLASMA 2.1 mg/dL 1.6 - 2.6 05/28 Specimen Type: PLASMA No comment entered. Ordering Provider: GERMANIA HANSON Report Released Date/Time: May 28, 2022 03:06 PM Reporting Lab: [facility] [address] Performing Lab: [facility] [address] [facility] COMPREHE NSIVE METABOLI C PANEL+MG ANION GAP IN SERUM OR PLASMA 8 mmol/L 5 - 15 05/28 Specimen Type: PLASMA No comment entered. Ordering Provider: GERMANIA HANSON Report Released Date/Time: May 28, 2022 03:06 PM Reporting Lab: [facility] [address] Performing Lab: [facility] [address] [facility] COMPREHE NSIVE METABOLI C PANEL+MG ALKALINE PHOSPHATAS E [ENZYMATIC ACTIVITY/V OLUME] IN SERUM OR PLASMA 108 U/L 40 - 150 05/28 Specimen Type: PLASMA No comment entered. Ordering Provider: GERMANIA HANSON Report Released Date/Time: May 28, 2022 03:06 PM Reporting Lab: [facility] [address] Performing Lab: [facility] [address] [facility] COMPREHE NSIVE METABOLI C PANEL+MG ALANINE AMINOTRANS FERASE [ENZYMATIC ACTIVITY/V OLUME] IN SERUM OR PLASMA 27 U/L <55 - 55 05/28 Specimen Type: PLASMA No comment entered. Ordering Provider: GERMANIA HANSON Report Released Date/Time: May 28, 2022 03:06 PM Reporting Lab: [facility] [address] Performing Lab: [facility] [address] [facility] COMPREHE NSIVE METABOLI C PANEL+MG ASPARTATE AMINOTRANS FERASE [ENZYMATIC ACTIVITY/V OLUME] IN SERUM OR PLASMA 21 U/L <34 - 34 05/28 Specimen Type: PLASMA No comment entered. Ordering Provider: GERMANIA HANSON Report Released Date/Time: May 28, 2022 03:06 PM Reporting Lab: [facility] [address] Performing Lab: [facility] [address] [facility] COMPREHE NSIVE METABOLI C PANEL+MG GLOMERULAR FILTRATION RATE/1.73 SQ M.PREDICTE D [VOLUME RATE/AREA] IN SERUM, PLASMA OR BLOOD BY CREATININE -BASED FORMULA (CKD-EPI) >90 60 05/28 Specimen Type: PLASMA No comment entered. Ordering Provider: GERMANIA HANSON Report Released Date/Time: May 28, 2022 03:06 PM Reporting Lab: [facility] [address] Performing Lab: [facility] [address] [facility] Encounters Combined list of: 1) Encounters from Department of [facility] facilities going back up to thelast 18 months. 2) Encounters from the Department of [facility] facilities going back up to 280 months. Location Location Details Encounter Type Encounter Number Reason For Visit Attending Provider ADM Date DC Date Status Disposition Source [facility] PRO PHONE CALL 5-10 MIN [id number] Diagnos is: ICD-10- CM Z73.6 Limitat ion of activit ies due to disabil ity<br/ > AVE HALEY 12/13 [facility] Outpatient Encounter [id number] 01/08 [facility] PRO PHONE CALL 21-30 MIN [id number] Diagnos is: ICD-10- CM G82.20 Paraple mary kay, unspeci fied
Hever CASTRO 01/08 [facility] Outpatient Encounter [id number] 01/09 [facility] DIABETIC MANAGEMENT PROGRAM, [id number] Diagnos is: ICD-10- CM G82.20 Paraple mary kay, unspeci fied
TIGIST BASSETT A 01[facility]30 [facility] Outpatient Encounter [id number] 02/05 [facility] MTMS BY PHARM ADDL 15 MIN [id number] Diagnos is: ICD-10- CM G82.20 Paraple mary kay, unspeci fied
MANPREET BARRETTEY N 02/05 [facility] OT EVAL LOW COMPLEX 30 MIN [id number] Diagnos is: ICD-10- CM Z73.6 Limitat ion of activit ies due to disabil ity<br/ > Bryn PARDO 02/05 [facility] OFF/OP EST MAY X REQ PHY/QHP [id number] Diagnos is: ICD-10- CM G82.20 Paraple mary kay, unspeci fied
JOSUÉ ZAMORA J 02/05 [facility] PSYCH DIAGNOSTIC EVALUATION [phone] Diagnos is: ICD-10- CM F32.A Depress ion, unspeci fied
BINU GAMEZ 02/05 [facility] OFFICE O/P EST MOD 30-39 MIN [phone] Diagnos is: ICD-10- CM G82.20 Paraple mary kay, unspeci fied
ME LOGAN BOWMAN 02/05 [facility] PSYCH DIAGNOSTIC EVALUATION [phone] Diagnos is: ICD-10- CM G82.20 Paraple mary kay, unspeci fied
JENNIFFERAN DESIRE J 02/05 [facility] MEDICAL NUTRITION INDIV IN [phone] Diagnos is: ICD-10- CM Z71.3 Dietary financial health counselor ing and surveil payal<b r/> Katia ARCHER 02/05 [facility] [place] [id number] Diagnos is: ICD-10- CM Z43.3 Encount er for attenti on to colosto my
VIOLA YOON 02/08 [facility] OFFICE O/P EST HI 40-54 MIN [id number] Diagnos is: ICD-10- CM G82.20 Paraple mary kay, unspeci fied
ME LOGAN BOWMAN 02/13 [facility] WHEELCHAIR MNGMENT TRAINING [id number] [phone] Diagnos is: ICD-10- CM Z73.6 Limitat ion of activit ies due to disabil ity<br/ > BOUSLOG,RY AN P 02/13 [facility] Outpatient Encounter [id number] 02/19 [facility] HC PRO PHONE CALL 11-20 MIN [id number] [id number] Diagnos is: ICD-10- CM Z73.6 Limitat ion of activit ies due to disabil ity<br/ > BOUSLOG,RY AN P 04/23 [facility] Outpatient Encounter [id number] 04/24 [facility] Outpatient Encounter [id number] 05/24 [facility] OFF/OP EST MAY X REQ PHY/QHP [id number] Diagnos is: ICD-10- CM G82.20 Paraple mary kay, unspeci fied
VIOLA YOON 05/28 [facility] WHEELCHAIR MNGMENT TRAINING [id number] Diagnos is: ICD-10- CM Z73.6 Limitat ion of activit ies due to disabil ity<br/ > BOUSLOG,RY AN P 06/10 [facility] Outpatient Encounter [id number] 10/28 [facility] Outpatient Encounter [id number] 11/20 [facility] Social History Combined list of available smoking, tobacco, and other social history from 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 Social History Type Response Date Comment Sour e Tobacco smoking status [facility] NEVER USED 05/28/20 22 [facility] This section is an empty social history section. [facility] Advance Directives List of completed, amended, or rescinded Advance Directives on record at Department of 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 An actual copy of the Directive is not included. Date Advance Directive Provider Source 02/05/2023 ADVANCE DIRECTIVE DISCUSSION [facility]
--- OUTSIDE RECORDS SUMMARY | 2024-05-04 12:46 | XMS_ITS | Encounter Summary ---
Author Organization [facility] Address [address], [place] [address] Care Team Providers Care Industrial Hygiene Engineer Name Role Phone Franklin Squires MD Primary Care Provider [phone] Encounter Details Date Type Department Care Team (Late st Contact Info) Description 12/14/2014 [facility] Physical Medicine [address] [facility] [place] [address] May Randle MD [address] [place] [address] DETAILED PRODUCT DESCRIPTION Social History Tobacco Use [...] filedocumented in this encounter Care Teams Industrial Hygiene Engineer Relationship Specialty Start Date End Date Franklin Squires MD [address] [facility] [place] [address] PCP - General Family Practice 03/08/16 documented as of this encounter
--- OUTSIDE RECORDS SUMMARY | 2024-05-04 12:46 | XMS_ITS | Encounter Summary ---
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
--- OUTSIDE RECORDS SUMMARY | 2024-05-04 12:46 | XMS_ITS | Encounter Summary ---
Author Organization [facility] Address [address], [place] [address] Care Team Providers Care Painter Supervisor Name Role Phone Franklin Squires MD Primary Care Provider [phone] Encounter Details Date Type Department Care Team (Latest Contact Info) Description 12/11/2017 Correspondence Physiatry/Physical Medicine at [facility] [address] [facility] [place] [address] May Randle MD [address] [place] [address] [employer] Social History Tobacco Use [...] on filedocumented in this encounter Care Teams Painter Supervisor Relationship Specialty Start Date End Date Franklin Squires MD [address] [place] [address] [place] [address] PCP - General Family Practice 03/08/16 documented as of this encounter
--- OUTSIDE RECORDS SUMMARY | 2024-05-04 12:46 | XMS_ITS | Encounter Summary ---
Author Organization [facility] Address [address] [address] Care Team Providers Care Cemetery Manager Name Role Phone Franklin Squires MD Primary Care Provider Encounter Details Date Type Department Care Team (Late st Contact Info) Description 11/23/2015 Correspondence External to External, [place] [address] LETTER [facility] Social [...] on filedocumented in this encounter Care Teams Cemetery Manager Relationship Specialty Start Date End Date Franklin Squires MD [address] [place] [address] [place] [address] PCP - General Family Practice 03/08/16 documented as of this encounter
--- OUTSIDE RECORDS SUMMARY | 2024-05-04 12:46 | XMS_ITS | Encounter Summary ---
Author Organization [facility] Address [address], [place] [address] Care Team Providers Care English Language Learner Tutor Name Role Phone Franklin Squires MD Primary Care Provider [phone] Encounter Details Date Type Department Care Team (Late st Contact Info) Description 08/22/2014 Outside Hospital External to [facility] HOSP-D/C SUMMARY Social History Tobacco Use [...] on filedocumented in this encounter Care Teams English Language Learner Tutor Relationship Specialty Start Date End Date Franklin Squires MD [address] [facility] [place] [address] PCP - General Family Practice 03/08/16 documented as of this encounter
--- OUTSIDE RECORDS SUMMARY | 2024-05-04 12:46 | XMS_ITS | Encounter Summary ---
Author Organization [facility] [address], [place] [address] Care Team Providers Care Book Author Name Role Phone Franklin Squires MD Primary Care Provider [phone] Encounter Details Date Type Department Care Team (Late st Contact Info) Description 02/05/2014 Correspondence [facility] Physical Therapy [address] [place] [address] Trudi Raymundo, PT [address] [place] [address] LETTER OF MEDICAL NECESSITY FOR A WHEELCHAIR [...] on filedocumented in this encounter Care Teams Book Author Relationship Specialty Start Date End Date Franklin Squires MD [address] [facility] [place] [address] PCP - General Family Practice 03/08/16 documented as of this encounter
--- OUTSIDE RECORDS SUMMARY | 2024-05-04 12:46 | XMS_ITS | Clinical Summary ---
Author Organization [facility] Address [place], [place] [address] Care Team Providers Care Grain Merchandising Manager Name Role Phone Zelalem Cohen MD Unavailable [phone] May Randle MD Unavailable [phone] Franklin Squires MD Primary Care Provider Fred CraftW Unavailable [phone] Diane Charles MD Unavailable [phone] Julia Ware RN Unavailable [phone] Allergies Active Allergy Reactions Criticality Noted Date [...] bedIndications:Non-heal ing surgical wound, subsequent encounter Drive medAhorro Libre 8 inch low loss mattress and 1/2 rails. Semi-electric bed. Length of need 6 weeks. Bed die designer:no 1 unit 018 Active acetaminophen (TYLENOL EXTRA [...] 60mm, Cut-to-Fit 01/16 - 2 11/18. Item #[id number]. 1 Each 11 021 Active baclofen (LIORESAL) [...] A DAY 180 Tablet 2 023 Active potassium chloride (KLOR-CON M10) 10 mEq extended-release tablet (part/cryst)Indications :Hypokalemia Take 2 Tablets (20 mEq) by mouth once daily with a meal. 180 Tablet 3 023 Active Catheter kitIndications:Neurogen ic bladder As directed. 3 Kit 3 024 Active amLODIPine (NORVASC) 5 mg tabletIndications:Labil e hypertension Take 1 Tablet (5 mg) by mouth once daily. 90 Tablet 3 024 Active Sodium hypochlorite (Dakin's Solution) 0.25 % solnIndications:Pressur e injury of left buttock, stage 4 () APPLY 10MIN SOAK TO WOUND BED 473 mL 024 Active buPROPion (WELLBUTRIN SR) 150 mg Sustained-Release tabletIndications:Depre ssive disorder TAKE 1 TABLET TWICE A DAY 180 Tablet 1 024 Active LORazepam (ATIVAN) 0.5 mg tabIndications:Parapleg ia () TAKE ONE TABLET BY MOUTH TWICE A DAY AND TAKE TWO TABLETS BY MOUTH AT BEDTIME 120 Tablet 2 024 Active Catheter (De La Cruz Catheter) 24 Fr miscIndications:Suprapu bic catheter () As directed. 3 Each 3 024 Active [...] times daily. 270 Capsule 3 024 Active amoxicillin-clavulanate 875-125 mg tablet (AUGMENTIN) Take 1 Tablet by mouth two times daily with meals for 10 days. 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),Anticoagulation monitoring, INR range 2-3,SDH (subdural hematoma) (HC) Take by mouth 5 mg (5 mg x 1) every Mon, [place]; 7.5 mg (7.5 mg x 1) all other days in the evening OR as directed Active warfarin (COUMADIN) 7.5 mg tabletIndications: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),Anticoagulation monitoring, INR range 2-3,Anticoagulation monitoring, INR range 2-3,SDH (subdural hematoma) (HC) Take by mouth 5 mg (5 mg x 1) every Mon, [place]; 7.5 mg (7.5 mg x 1) all other days in the evening OR as directed Active DULoxetine (CYMBALTA) 60 mg Delayed-release capsuleIndications:Depr essive disorder TAKE 1 CAPSULE TWICE A DAY 180 Capsule 1 023 2023 Discontinued gabapentin (NEURONTIN) 400 mg capsuleIndications:Gay re back pain TAKE 1 CAPSULE THREE TIMES A DAY 270 Capsule 024 2023 Discontinued(R eorder (E-cancel not sent)) donepeziL (ARICEPT) 5 mg tabletIndications:Millicent hart TAKE 1 TABLET AT BEDTIME 90 Tablet 024 2023 Discontinued warfarin (COUMADIN) 7.5 mg tabletIndications: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),Anticoagulation monitoring, INR range 2-3,Anticoagulation monitoring, INR range 2-3,SDH (subdural hematoma) (HC) Take by mouth 5 mg (5 mg x 1) every Mon, Wed, Sat; 7.5 mg (7.5 mg x 1) all other days in the evening OR as directed 2023 Discontinued(O ther - add note to [...] add note to specify (E-cancel not sent)) gabapentin (NEURONTIN) 400 mg [...] Date Resolved Date Soft tissue infection 10/22/20232023 long-term current use of anticoagulant 06/20/2023 01/08/2024 Cellulitis of scrotum 05/08/20232022 UTI (urinary tract infection) 05/08/2023 06/20/2023 Quadriplegia, unspecified 10/23/2022 Continuous opioid dependence 07/01/2022 08/20/2022 Urinary tract infection asso ciated with indwelling urethral catheter 10/05/2021 06/20/2023 Hypertensive urgency 10/04/2021 023 Type 2 diabetes mellitus, [facility] long-term current use of insulin 01/06/2021 02/14/2024 Acute hyponatremia 08/25/2020 3 Pressure ulcer, sacrum 05/30/202002/13 Decubitus ulcer of [...] delivery 04/16/2007 10/01/2007 Overview: S/P IVC Filter long-term (current) use of anticoagulants 02/19/2007 09/27/2008 Depressive disorder, not elsewhere classified 02/14/20 07 01/15/2018 Abnormality of gait 12/24/2006 09/27/20 08 Urinary tract infection, site not specified 12/24/2006 01/15/2018 BENIGN ESSENTIAL HYPERTENSION 12/24/2006 04/17/2016 Overview: borderline Necrotizing fasciitis 2018 Type 2 diabetes mellitus Encounters Date Type Department Care Team Description 05/04/[address] [address] Franklin Squires MD Form 05/04/2024 Refill [facility] [address] [place] [address] Franklin Squires MD Refill Request (Oxycodone) 05/01/2024 Anticoagulation (warfarin) [facility] [address] [place] [address] 1, [facility] Anticoagulation (Acelis) 04/29/2024 Refill [facility] [address] [place] [address] Franklin Squires MD Refill Request (Duloxetine, Donepezil) 04/24/2024 2:49 PM CDT - 04/24/2024 2:50 PM CDT Emergency [facility] [address] [place] [address] Discharge Disposition: Against Medical Advice or Discontinued Care 04/24/2024 Travel 04/24/2024 Anticoagulation (warfarin) [address] [place] [address] 1, [facility] Anticoagulation (Acelis) 04/21/[address] [place] [address] Franklin Squires MD Refill Request (Gabapentin) 04/20/[address] [address] Franklin Squires MD Form (Physician Orders. Urinary Catheter - Suprapubic. ) 04/20/[address] [address] Franklin Squires MD Refill Request (Gabapentin 400 mg) 04/13/[address] [address] Franklin Squires MD Form (Standard Written Order: Rehab Accessories. Cushion, Quadtro Select HI PRO 20x20 or 11x11 CELL) 04/07/2024 Anticoagulation (warfarin) [address] [place] [phone] 1, [facility] Anticoagulation (acelis) 04/07/[address] [place] [phone] Franklin Squires MD Form (Physician Orders) 04/03/2024 2:30 PM CDT Office Visit [address] [phone] Franklin Squires MD Follow Up (6 week follow up) 04/03/2024 Travel 04/02/[address] [place] [address] Franklin Squires MD Refill Request (Oxycodone) 03/28/[address] [place] [address] Franklin Squires MD Refill Request (Furosemide) 03/20/2024 4:32 PM CDT - 03/20/2024 8:34 PM CDT Emergency [facility] [address] [place] [address] Quan Corbett PA Suprapubic catheter dysfunction, initial encounter (HC) (Primary Dx) Discharge Disposition: Home Self Care 03/20/2024 Travel 03/20/[address] [place] [address] Franklin Squires MD other ( / UPDATE ) 03/19/2024 Anticoagulation (warfarin) [address] [place] [address] 1, [facility] Anticoagulation (acelis) 03/13/2024 2:10 PM CDT Orders Only [address] [address] Lab, [facility] 03/13/2024 Travel 03/10/[address] [address] Franklin Squires MD Form (Home Health Certification and Plan of Care. ) 03/10/[address] [address] Franklin Squires MD Form (60 day summary report. SNV 2x/wk for wound care.) 03/05/2024 Anticoagulation (warfarin) [address] [address] , [facility] Anticoagulation (Acelis) 03/02/[address] [address] Gabrielle Prado PA Refill Request (Oxycodone) 03/02/[address] [address] Franklin Squires MD Refill Request (Lorazepam) 02/24/2024 Patient Outreach [facility] Care Management - Advanced Care Team [address] [place] [address] Archana Wright RN Complex Care Management (ACO outreach engagement ) 02/24/[address] [address] Franklin Squires MD Form (Physician Orders. Medication order: Lorazapam 0.5 mg; oral tablet. Amoxicillin- clavulanate 875mg) 02/24/[address] [phone] Franklin Squires MD Refill Request (LORazepam (ATIVAN) 0.5 mg tab) 02/20/2024 1:30 PM CDT Office Visit [address] [place] [address] Franklin Squires MD Hospital F/U (02/15/24) 02/20/2024 Anticoagulation (warfarin) [address] [place] [address] 1, [facility] Anticoagulation 02/20/2024 Travel 02/18/2024 Anticoagulation (warfarin) [address] [place] [address] 1, [facility] Anticoagulation (acelis) 02/18/2024 Patient Outreach [address] [place] [address] Archana Stein RN Primary RN Care Management (Hospital DC:02/17/24/LACE:47/[facility]); Hospital F/U 02/17/[address] [place] [address] Franklin Squires MD Form (Service Order: Hold. Acute care hospitalization for pneumonia. Hold [facility] pending discharge plans. Effective: 02/15/2024) 02/15/2024 4:34 PM CDT - 02/17/2024 2:45 PM CDT Hospital Encounter [facility] [address] [place] [address] [facility] Internal FogGilson mcmahon MD Khakbaznejad, Alireza, MD Pneumonia due to infectious organism, unspecified laterality, unspecified part of lung (Primary Dx); History of DVT (deep vein thrombosis); Pressure injury of right buttock, stage 1 Discharge Disposition: Home Self Care 02/15/2024 Travel 02/15/[address] [place] [address] 1, [facility] Refill Request (Warfarin) 02/14/2024 3:10 PM CDT - 02/15/2024 2:45 PM CDT Hospital Encounter [facility] [address] [place] [address] Quan Corbett, ROXY Ramírez, MD Terence Bruno, Todd Glass, DO Cintron, George Izaguirre, NET WPF DEVELOPER Nancy, Malini Ferro NP Leukocytosis, unspecified type (Primary Dx); Fever, unspecified fever cause; Chills; Tachycardia; Pulmonary infiltrate; Elevated C-reactive protein (CRP); Pressure injury of deep tissue of left buttock Discharge Disposition: Critical Access Hospital 02/14/2024 Travel 02/05/2024 Anticoagulation (warfarin) [facility] [address] [place] [address] [facility] Anticoagulation (Acelis) from Last 3 Months Immunizations Name Administration Dates Next Due COVID-19 vaccine (Parsely-Bio NTech 30mcg/0.3mL) 12YO+ BIVALENT PF, MDV 10/22/2022 [...] Associated Diagnosis Comments HOME MONITOR AC Routine 05/01/2024 12:00 AM CDT HOME MONITOR AC Routine 04/24/2024 12:00 AM [...] Months Results * (ABNORMAL) HOME MONITOR AC (05/01/2024 12:00 AM CDT) Only the most recent of7 resultswithin the time period is included. PATIENT REPORTED HOME INR 1.6(L) 2.00 - 3.00 ALERE HOME MONITORING 05/01/2024 Franklin Squires MD OTHER [facility] [address] [place] [address] * BLADDER CATHETERIZATION (03/20/2024 7:52 PM [...] ?Risks discussed: ??Pain, incomplete procedure and infection [place] protocol: ??Procedure explained and questions answered to [...] CDT) CULTURE RESULT(A) 03/28/2024 11:28 AM CDT [facility] CULTURE 2+ Klebsiella pneumoniae 03/28/2024 11:28 AM CDT [facility] CULTURE 2+ Pseudomonas aeruginosa 03/28/2024 11:28 AM [facility]T [facility] C[facility] 2+ Staphylococcus aureus 03/28/2024 11:28 AM CDT [facility] Comment:Isolate is MRSA (Met hicillin-resistant Staph aureus). CULTURE 2+ Mixed brigette present 03/28/2024 11:28 AM CDT [facility] GRAM STAIN No PMNs 03/28/2024 11:28 AM CDT [facility] GRAM STAIN No Epithelial cells 03/28/2024 11:28 AM CDT [facility] GRAM STAIN No RBCs 03/28/2024 11:28 AM CDT [facility] GRAM STAIN 4+ Gram Negative Bacilli 03/28/2024 11:28 AM CDT [facility] GRAM STAIN 2+ Gram Positive Cocci 03/28/2024 11:28 AM CDT [facility] Other SPECIMEN FROM [place] / Unknown Non-Blood / Unknown 03/20/2024 5:01 PM CDT 03/20/2024 5:05 PM CDT [facility] LAB[facility]AT[facility] - 03/28/2024 11:28 AM CDT Mixed brigette, No ??beta- Streptococcus or Streptococcus pneumoniae. Organism Antibiotic Method Susceptibility Klebsiella pneumoniae TRIMETHOPRIM/SULF <=/19: S Klebsiella pneumoniae AMPICILLIN >=32: R Klebsiella [...] TRIMETHOPRIM/SULF <=0.5/9.5: S Quan RAMSEY MICROBIOLOG Y [facility] [address] [place] [address], [place] * (ABNORMAL) CBC WITH AUTO DIFFERENTIAL (03/20/2024 4:58 PM CDT) Only the most recent of3 resultswithin the time period is included. WHITE BLOOD COUNT 10.9 4.5 - 11.0 thou/cu mm 03/20/2024 5:06 PM [facility] RED BLOOD COUNT 4.92 4.30 - 5.90 mil/cu mm 03/20/2024 5:06 PM [facility] HEMOGLOBIN 12.7(L) 13.5 - 17.5 g/dL 03/20/2024 5:06 PM [facility] HEMATOCRIT 40.0 37.0 - 53.0 % 03/20/2024 5:06 PM [facility] MCV 81 80 - 100 fL 03/20/2024 5:06 PM [facility] MCH 25.8(L) 26.0 - 34.0 pg 03/20/2024 5:06 PM [facility] MCHC 31.8(L) 32.0 - 36.0 g/dL 03/20/2024 5:06 PM [facility] RDW 18.1(H) 11.5 - 15.5 % 03/20/2024 5:06 PM [facility] PLATELET COUNT 263 140 - 440 thou/cu mm 03/20/2024 5:06 PM [facility] MPV 9.4 6.5 - 11.0 fL 03/20/2024 5:06 PM [facility] % NEUT 68.4 % 03/20/2024 5:06 PM [facility] % LYMPH 20.1 % 03/20/2024 5:06 PM CDT [facility] % MONO 8.4 % 03/20/2024 5:06 PM CDT [facility] % EOS 2.8 % 03/20/2024 5:06 PM T [facility] % BASO 0.3 % 03/20/2024 5:06 PM CDT [facility] ABSOLUTE NEUTROPHILS 7.4(H) 1.7 - 7.0 thou/cu mm 03/20/2024 5:06 PM CDT [facility] ABSOLUTE LYMPHOCYTES 2.2 0.9 - 2.9 thou/cu mm 03/20/2024 5:06 PM T [facility] ABSOLUTE MONOCYTES 0.9(H) <0.9 thou/cu mm 03/20/2024 5:06 PM CDT [facility] ABSOLUTE EOSINOPHILS 0.3 <0.5 thou/cu mm 03/20/2024 5:06 PM T [facility] ABSOLUTE BASOPHILS 0.0 <0.3 thou/cu mm 03/20/2024 5:06 PM CDT [facility] Blood BLOOD SPECIMEN / Unknown Butterfly / Unknown 03/20/2024 4:58 PM CDT 03/20/2024 5:02 PM CDT Quan RAMSEY HEMATOLOGY Performing Organization Address City/State/[facility] Co de Phone Number [facility] [address] [place] [address] * LACTATE VENOUS (03/20/2024 4:58 PM CDT) Only the most recent of2 resultswithin the time period is included. [facility] LACTATE,VENOUS 1.3 0.5 - 2.0 mmol/L 03/20/2024 5:21 PM CDT [facility] Blood BLOOD SPECIMEN / Unknown Butterfly / Unknown 03/20/2024 4:58 PM CDT 03/20/2024 5:02 PM CDT Quan RAMSEY CHEMISTRY [facility] [address] [place] [address] * (ABNORMAL) BASIC METABOLIC PANEL (03/20/2024 4:58 PM CDT) SODIUM 139 136 - 145 mmol/L 03/20/2024 5:22 PM [facility] POTASSIUM 4.5 3.5 - 5.1 mmol/L 03/20/2024 5:22 PM [facility] CHLORIDE 100 98 - 107 mmol/L 03/20/2024 5:22 PM [facility] CO2,TOTAL 29 22 - 29 mmol/L 03/20/2024 5:22 PM [facility] ANION GAP 10 5 - 18 03/20/2024 5:22 PM [facility] GLUCOSE 115(H) 70 - 99 mg/dL 03/20/2024 5:22 PM [facility] CALCIUM 9.4 8.8 - 10.2 mg/dL 03/20/2024 5:22 PM [facility] BUN 21 8 - 23 mg/dL 03/20/2024 5:22 PM [facility] CREATININE 0.63(L) 0.70 - 1.20 mg/dL 03/20/2024 5:22 PM [facility] BUN/CREAT RATIO 33(H) 10 - 20 5:22 PM [facility] eGFR >90 >90 mL/min/1.7 3m2 03/20/2024 5:22 PM [facility] Comment:As of 2022, eG FR [...] CDT Quan RAMSEY CHEMISTRY Performing Organization Address [facility]/ZIP Co de Phone Number [facility] [address] [place], [place] [id number] * (ABNORMAL) URINALYSIS MICROSCOPIC (03/13/2024 11:04 AM CDT) Only the most recent of2 resultswithin the time period is included. RBC 0-2 0-2, None Seen /HPF 03/13/2024 2:26 PM CDT [facility] WBC 6-10(A) 0-2, 3-5, None Seen /HPF 03/13/2024 2:26 PM CDT [facility] BACTERIA Few None Seen, Rare, Few Bacteria/ HPF 03/13/2024 2:26 PM CDT [facility] EPITHELIAL CELLS Few None Seen, Few Epi/HPF 03/13/2024 2:26 PM CDT [facility] WHITE CELL CLUMPS Present(A) (none) 03/13/2024 2:26 PM CDT [facility] Urine URINE SPECIMEN / Unknown Non-Blood / Unknown 03/13/2024 11:04 AM CDT 03/13/2024 1:37 PM CDT Franklin Squires MD URINE Performing Organization Address [facility] Co de Phone Number [facility] [address] [place] [address] * (ABNORMAL) URINE CULTURE (03/13/2024 11:04 AM CDT) Only the most recent of2 resultswithin the time period is included. CULTURE RESULT(A) 03/16/2024 9:13 AM CDT [facility] LAB[facility] CULTURE >100,000 CFU/mL Pseudomonas aeruginosa 03/16/2024 9:13 AM CDT [facility] CULTURE 50,000-100,000 CFU/mL Staphylococcus aureus 03/16/2024 9:13 AM CDT [facility] CULTURE 10,000-50,000 CFU/mL Enterobacter cloacae complex 03/16/2024 9:13 AM CDT [facility] Comment: May develop resistance during [...] AM CDT 03/13/2024 1:37 PM CDT Narrative [facility] - 03/16/2024 9:13 AM CDT May represent colonization. No further workup pending. Franklin Squires MD MICROBIOLOGY [facility] [address] [place] [address], [place] * (ABNORMAL) UA W/ SEDIMENT EXAM REFLEXED PER CRITERIA (03/13/2024 11:04 AM CDT) Only the most recent of2 resultswithin the time period is included. COLOR Yellow Yellow Color 03/13/2024 2:24 PM [facility] CLARITY Clear Clear Clarity 03/13/2024 2:24 PM [facility] SPECIFIC GRAVITY,URINE <=1.005(A) 1.010, 1.015, 1.020, 1.025 03/13/2024 2:24 PM [facility] PH,URINE 6.5 6.0, 7.0, 8.0, 5.5, 6.5, 7.5, 8.5 03/13/2024 2:24 PM [facility] UROBILINOGEN, QUALITATIVE Normal Normal EU/dl 03/13/2024 2:24 PM [facility] PROTEIN, URINE Negative Negative mg/dL 03/13/2024 2:24 PM [facility] GLUCOSE, URINE Negative Negative mg/dL 03/13/2024 2:24 PM [facility] KETONES,URINE Negative Negative mg/dL 03/13/2024 2:24 PM CDT [facility] BILIRUBIN,URI NE Negative Negative 03/13/2024 2:24 PM CDT [facility] OCCULT BLOOD,URINE Moderate(A) Negative 03/13/2024 2:24 PM CDT [facility] NITRITE Negative Negative 03/13/2024 2:24 PM CDT [facility] LEUKOCYTE ESTERASE Moderate(A) Negative 03/13/2024 2:24 PM CDT [facility] Urine URINE SPECIMEN / Unknown Non-Blood / Unknown 03/13/2024 11:04 AM CDT 03/13/2024 1:37 PM CDT Franklin Squires MD URINE Performing Organization Address City/[facility]/ZIP Co de Phone Number [facility] [address] [place] [address] * POTASSIUM (02/20/2024 2:15 PM CDT) Only the most recent of2 resultswithin the time period is included. POTASSIUM 4.3 3.5 - 5.1 mmol/L 02/20/2024 4:02 PM CDT [facility] Blood BLOOD SPECIMEN / Unknown Venipuncture / Unknown 02/20/2024 2:15 PM CDT 02/20/2024 3:06 PM CDT Franklin Squires MD CHEMISTRY Performing Organization Address City/[facility]/ZIP Co de Phone Number [facility] [address] [place] [address] * (ABNORMAL) PROTIME-INR (02/20/2024 2:15 PM CDT) Only the most recent of5 resultswithin the time period is included. INR 1.9(H) <1.3 02/20/2024 2:38 PM CDT [facility] PROTIME 21.2(H) 10.3 - 12.3 sec 02/20/2024 2:38 PM CDT [facility] Blood BLOOD SPECIMEN / Unknown Venipuncture / Unknown 02/20/2024 2:15 PM CDT 02/20/2024 2:15 PM CDT Narrative [facility] - 02/20/2024 2:38 PM CDT [...] Franklin Squires MD HEMATOLOGY Performing Organization Address City/[facility]/ZIP Co de Phone Number [facility] [address] [place] [id number] * SODIUM (02/17/2024 5:11 AM CDT) SODIUM 140 136 - 145 mmol/L 02/17/2024 6:14 AM CDT [facility] Blood BLOOD SPECIMEN / Unknown Butterfly / Unknown 02/17/2024 5:11 AM CDT 02/17/2024 5:44 AM CDT John Ludwig MD CHEMISTRY [facility] INTERNAL ZIP [id number] [address] [place] [address] * (ABNORMAL) CREATININE (02/17/2024 5:11 AM CDT) eGFR >90 >90 mL/min/1.7 3m2 02/17/2024 6:14 AM T [facility] Comment:As of 2022, eG FR is calculated by the CKD-EPI creatinine equation without race adjustment. ??eGFR can be influenced by muscle mass, exercise, and diet. ??The reported eGFR is an estimation only and is only applicable if the renal function is stable. CREATININE 0.56(L) 0.70 - 1.20 mg/dL 02/17/2024 6:14 AM CDT [facility] Blood BLOOD SPECIMEN / Unknown Butterfly / Unknown 02/17/2024 5:11 AM CDT 02/17/2024 5:44 AM CDT John Ludwig MD CHEMISTRY [facility] INTERNAL ZIP [phone] [place] [address] * MAGNESIUM (02/17/2024 5:11 AM CDT) MAGNESIUM 2.0 1.6 - 2.4 mg/dL 02/17/2024 7:44 AM CDT [facility] Blood BLOOD SPECIMEN / Unknown Butterfly / Unknown 02/17/2024 5:11 AM CDT 02/17/2024 5:44 AM CDT John Ludwig MD CHEMISTRY [facility] INTERNAL ZIP [address] [address] [employer] [place] [address] * (ABNORMAL) GLUCOSE METER (02/16/2024 11:41 AM CDT) Only the most recent of6 resultswithin the time period is included. GLUCOSE METER 129(H) 65 - 100 mg/dL 02/16/2024 12:02 PM CDT [facility] Blood BLOOD SPECIMEN / Unknown 02/16/2024 11:41 AM CDT 02/16/2024 12:02 PM CDT John Ludwig MD CHEMISTRY [facility] INTERNAL ZIP [phone] [employer] [place] [address] * LEGIONELLA AND PNEUMOCOCCAL URINE ANTIGEN (02/15/2024 10:25 AM CDT) STREP PNEUMO ANTIGEN Negative 02/15/2024 3:46 PM CDT [facility] Comment:Presumptive negative for pneumococcal pneumonia, suggesting no current or recent pneumococcal infection. Infection due to S. pneumoniae cannot be ruled out since the antigen present in the sample may be below the detection limit of the test. LEGIONELLA ANTIGEN Negative 02/15/2024 3:46 PM CDT [facility] Comment:Negative for L.pneum ophila serogroup [...] James Ramírez MD MICROBIOLOGY Performing Organization Address City/[facility]/ZIP Co de Phone Number [facility] [address] [place] [address], * (ABNORMAL) WHITE BLOOD COUNT (02/15/2024 5:54 AM CDT) Pathologist [facility] WHITE BLOOD COUNT 11.7(H) 4.5 - 11.0 thou/cu mm 02/15/2024 7:16 AM CDT [facility] Blood BLOOD SPECIMEN / Unknown Venipuncture / Unknown 02/15/2024 5:54 AM CDT 02/15/2024 7:09 AM CDT James Ramírez MD HEMATOLOGY [facility] [address] [place] [address] * CT ABDOMEN PELVIS WO (02/14/2024 8:12 [...] 6-15 ng/L ng/L 02/14/2024 8:12 PM CDT [facility] Blood BLOOD SPECIMEN / Unknown Venipuncture / Unknown 02/14/2024 7:49 PM CDT 02/14/2024 7:53 PM CDT Quan RAMSEY CHEMISTRY [facility] [address] [place] [address] * (ABNORMAL) TROPONIN T (HS) ACUTE W/2HR REFLEX (02/14/2024 5:35 PM CDT) TROPONIN T HS 33(H) 6-15 ng/L ng/L 02/14/2024 6:42 PM CDT [facility] Blood BLOOD SPECIMEN / Unknown Venipuncture / Unknown 02/14/2024 5:35 PM CDT 02/14/2024 5:38 PM CDT Narrative [facility] - 02/14/2024 6:42 PM CDT [...] emergency department patient population. Quan RAMSEY CHEMISTRY [facility] [address] [place] [address] * XR CHEST 1 VIEW PORTABLE (02/14/2024 [...] CULTURE No Growth. 02/20/2024 5:27 AM CDT [facility] Blood BLOOD SPECIMEN / Unknown Butterfly / Unknown 02/14/2024 3:58 PM CDT 02/14/2024 4:02 PM CDT Quan RAMSEY MICROBIOLOG Y [facility] [address] [place] [address] * PROCALCITONIN (02/14/2024 3:50 PM CDT) PROCALCITONIN 0.10 ng/ml 02/14/2024 5:09 PM CDT [facility] Blood BLOOD SPECIMEN / Unknown Butterfly / Unknown 02/14/2024 3:50 PM CDT 02/14/2024 4:39 PM CDT Narrative [facility] - 02/14/2024 5:09 PM CDT [...] Quan RAMSEY SEND OUTS Performing Organization Address [facility]/ZIP Co de Phone Number [facility] [address] [place] [address] * (ABNORMAL) C-REACTIVE PROTEIN (02/14/2024 3:50 PM CDT) [facility] C-REACTIVE PROTEIN 10.9(H) <0.5 mg/dL 02/14/2024 5:09 PM CDT [facility] Blood BLOOD SPECIMEN / Unknown Butterfly / Unknown 02/14/2024 3:50 PM CDT 02/14/2024 4:02 PM CDT Quan RAMSEY CHEMISTRY Performing Organization Address [facility] Co de Phone Number [facility] [address] [place] [address] * (ABNORMAL) COMP METABOLIC PANEL (02/14/2024 3:50 PM CDT) [facility] SODIUM 134(L) 136 - 145 mmol/L 02/14/2024 4:24 PM [facility] POTASSIUM 4.3 3.5 - 5.1 mmol/L 02/14/2024 4:24 PM [facility] CHLORIDE 96(L) 98 - 107 mmol/L 02/14/2024 4:24 PM [facility] CO2,TOTAL 25 22 - 29 mmol/L 02/14/2024 4:24 PM [facility] ANION GAP 13 5 - 18 02/14/2024 4:24 PM [facility] GLUCOSE 118(H) 70 - 99 mg/dL 02/14/2024 4:24 PM [facility] CALCIUM 9.4 8.8 - 10.2 mg/dL 02/14/2024 4:24 PM [facility] BUN 15 8 - 23 mg/dL 02/14/2024 4:24 PM [facility] CREATININE 0.60(L) 0.70 - 1.20 mg/dL 02/14/2024 4:24 PM [facility] BUN/CREAT RATIO 25(H) 10 - 20 4:24 PM [facility] eGFR >90 >90 mL/min/1.7 3m2 02/14/2024 4:24 PM [facility] Comment:As of 2022, eG FR is calculated by the CKD-EPI creatinine equation without race adjustment. ??eGFR can be influenced by muscle mass, exercise, and diet. ??The reported eGFR is an estimation only and is only applicable if the renal function is stable. ALBUMIN 4.1 4.0 - 4.9 g/dL 02/14/2024 4:24 PM [facility] PROTEIN,TOTAL 7.8 6.0 - 8.0 g/dL 02/14/2024 4:24 PM [facility] BILIRUBIN,TOTAL 0.6 0.0 - 1.2 mg/dL 02/14/2024 4:24 PM [facility] ALK PHOSPHATASE 117 40 - 129 IU/L 02/14/2024 4:24 PM CDT [facility] ALT (SGPT) 47 10 - 50 IU/L 02/14/2024 4:24 PM CDT [facility] AST (SGOT) 42 10 - 50 IU/L 02/14/2024 4:24 PM CDT [facility] Blood BLOOD SPECIMEN / Unknown Butterfly / Unknown 02/14/2024 3:50 PM CDT 02/14/2024 4:02 PM CDT Quan RAMSEY CHEMISTRY [facility] [address] [place], [place] [id number] from Last 3 Months Additional Health Concerns [...] 12 months since positive culture): resides in acute/assisted care, receiving hemodialysis, has chronic open wounds/skin damage, has long-term percutaneous indwelling medical devices Exclusions for nares collection (if <12 months since positive culture) include all of the previous exclusions plus patients on antibiotics 7 days prior to collection 03/13/2018 03/20/2024 Advance Directives Documents on File Type Date Recorded Patient Driver Medic Expl anation Healthcare Directive 05/09/2023 023 Healthcare [...] Code Status Discussion: Reviewed Preferences Care Teams Grain Merchandising Manager Relationship Specialty Start Date End Date Franklin Squires MD [address] [place] [address] PCP - General Family Practice 10/18/15 Zelalem Cohen MD Physical Therapist 03/13/12 May Randle MD Physical Medicine and Rehabilitation 03/13/12 Luana, ANTHNOY KruegerW [address] [place] [address] Email Campaign Specialist 05/03/17 Diane Chalres MD [address] [place] [address] Surgery - Urology 01/17/23 Julia Ware, RN [address] [place] [address] Registered Nurse 07/17/23
--- OUTSIDE RECORDS SUMMARY | 2024-05-04 12:46 | XMS_ITS | Encounter Summary ---
Author Organization [facility] Address [address] [address] Care Team Providers Care Electric Well Logging Operator Name Role Phone Franklin Squires MD Primary Care Provider Encounter Details Date Type Department Care Team (Late st Contact Info) Description 09/07/2014 Correspondence [facility] Radiology [address] [place] [address] Radiology, Provider MRI SAFETY SHEET AND COMPATIBILITY [...] on filedocumented in this encounter Care Teams Electric Well Logging Operator Relationship Specialty Start Date End Date Franklin Squires MD [address] [place], [place] [address] [address] PCP - General Family Practice 03/08/16 documented as of this encounter
--- OUTSIDE RECORDS SUMMARY | 2024-05-04 12:46 | XMS_ITS | Encounter Summary ---
Author Organization [facility] [address], [place] [address] Care Team Providers Care Software Installation Engineer Name Role Phone Franklin Squires MD Primary Care Provider [phone] Encounter Details Date Type Department Care Team (Late st Contact Info) Description 07/08/2015 Correspondence [facility] Physical Therapy [address] [place] [address] Trudi Raymundo, PT [address] [place] [address] ADDENDUM FOR LETTER OF MEDICAL NECESSITY Social [...] filedocumented in this encounter Care Teams Software Installation Engineer Relationship Specialty Start Date End Date [facility] Squires MD [address] [facility] [address] PCP - General Family Practice 03/08/16 documented as of this encounter
--- OUTSIDE RECORDS SUMMARY | 2024-05-04 12:46 | XMS_ITS | Encounter Summary ---
Author Organization [facility] Address [address] [address] Care Team Providers Care Warranty Administrator Name Role Phone Franklin Squires MD Primary Care Provider [phone] Encounter Details Date Type Department Care Team (Late st Contact Info) Description 07/23/2013 [facility]ence [facility] 401 Interventional Pain Management 401 [place] [address] Zelalem Cohen DO [address] [place] [address] EXPRESS SCRIPT Social History Tobacco Use Types [...] of this encounter Progress Notes * Zelalem Choen MD - 07/23/2013 12:00 AM CDT SETTER/DRIVER documented in this encounter Plan of Treatment Not on file documented as of this encounter Visit Diagnoses Not on filedocumented in this encounter Care Teams Warranty Administrator Relationship Specialty Start Date End Date Franklin Squiers MD [address] [facility] [address] PCP - General Family Practice 03/08/16 documented as of this encounter
--- OUTSIDE RECORDS SUMMARY | 2024-05-04 12:46 | XMS_ITS | Encounter Summary ---
Author Organization [facility] Address [address] [address] Care Team Providers Care Test Manager Name Role Phone Franklin Squires MD Primary Care Provider [phone] Encounter Details Date Type Department Care Team [...] on filedocumented in this encounter Care Teams Test Manager Relationship Specialty Start Date End Date Franklin Squires MD [address] [facility] [address] PCP - General Family Practice 03/08/16 documented as of this encounter
--- OUTSIDE RECORDS SUMMARY | 2024-05-04 12:46 | XMS_ITS | Encounter Summary ---
Author Organization [facility] Address [address], [place] [address] Care Team Providers Care Senior Clerk Name Role Phone Franklin Squires MD Primary Care Provider Encounter Details Date Type Department Care Team (Late st Contact Info) Description 05/04/2014 [facility]ence [facility] 401 Physical Medicine 401 [facility] [place] [address] May Randle MD [address] [place] [address] LETTER OF MEDICAL NECESSITY FOR A WHEELCHAIR [...] filedocumented in this encounter Care Teams Senior Clerk Relationship Specialty Start Date End Date Franklin Squires MD 100 [facility] [place] [address] PCP - General Family Practice 03/08/16 documented as of this encounter
--- OUTSIDE RECORDS SUMMARY | 2024-05-04 12:46 | XMS_ITS | Encounter Summary ---
Author Organization [facility] Address [address], [place] [address] Care Team Providers Care Database Designer Name Role Phone Franklin Squires MD Primary Care Provider Encounter Details Date Type Department Care Team (Latest Contact Info) Description 06/04/2014 Correspondence [facility] 401 Interventional Pain Management 401 [facility] [address] Zelalem Cohen, DO [address] [place] [address] MEDICAID PT INFORMATION EMPI RECOVERY Social History [...] filedocumented in this encounter Care Teams Database Designer Relationship Specialty Start Date End Date Franklin Squires MD 100 [facility] [address] PCP - General Family Practice 03/08/16 documented as of this encounter
--- OUTSIDE RECORDS SUMMARY | 2024-05-04 12:46 | XMS_ITS | Clinical Summary ---
Author Organization [facility] Address [address] [place] [address] Care Team Providers Care Local Sales Associate Name Role Phone Franklin Squires MD Primary Care Provider [phone] Source Comments You are receiving this document [...] for each transition of care or referral. [facility] Allergies Active Allergy Reactions Criticality Noted Date [...] 0 06/10/2014 History of anticoagulant therapy 02/17/2014 director long term care current use of anticoagulant therapy 0 [...] Comments Blood Pressure 120/63 01/18/2022 12:59 PM COOKIE BREAKER Pulse 87 01/18/2022 12:59 PM COOKIE BREAKER Temperature 36.3 ??C (97.4 ??F) 01/18/2022 12:59 [...] this topic Medical Devices Implanted Type Area Desktop Support Technician Device Identifier Shelf Expiration Date Model / Serial / Lot [id number] 4ml Tisseel Explanted:(Roosevelt ntity not on file) BIOLOGIC N/A: NECK Lynne Fenwall 09/10/2011 [id number] / [id number] / [id number] Description:posterior Cath Intrathecal Indura - [id number] Implanted:Qty: 1 on 05/09/2010 at [facility] DEVICE Right: LUMBAR SPINE [employer] 01/18/2012 8709 / N/A / [id number] Cath Intrathecal Indura - [id number] Implanted:Qty: 1 on 05/29/2010 at [facility] DEVICE [employer] 8709 / / Scr Indira Conic 7.3x80 - [id number] Implanted:Qty: 1 on 03/13/2011 at [facility] DEVICE Right: FEMUR DISTAL [employer] 02.207.28 0 / NONE / NONE Plt Lcp Cndl Rt 4.5x170 6h - [id number] Implanted:Qty: 1 on 03/13/2011 at [facility] DEVICE Right: FEMUR DISTAL [employer] 222.656 / NONE / NONE Description:6 hole 170mm rig ht 4.5mm lcp condylar plate Scr Didier Ss Sftp 4.5x40 - [id number] Implanted:Qty: 1 on 03/13/2011 at [facility] DEVICE Left: FEMUR DISTAL [employer] 214.840 / NONE / NONE Scr Didier Ss Sftp 4.5x50 - [id number] Implanted:Qty: 1 on 03/13/2011 at [facility] DEVICE Left: FEMUR DISTAL [employer] 214.850 / NONE / NONE Scr Indira Lk 5.0x80 - [id number] Implanted:Qty: 2 on 03/13/2011 at [facility] DEVICE Left: FEMUR DISTAL [employer] 02.205.08 0 / NONE / NONE Scr Indira Lk 5.0x85 - [id number] Implanted:Qty: 2 on 03/13/2011 at [facility] DEVICE Left: FEMUR DISTAL [employer] 02.205.08 5 / NONE / NONE Scr Lk Sftp T25 5.0x50 - [id number] Implanted:Qty: 1 on 03/13/2011 at [facility] DEVICE Left: FEMUR DISTAL [employer] 212.219 / NONE / NONE Scr Lk Sftp T25 5.0x60 - [id number] Implanted:Qty: 1 on 03/13/2011 at [facility] DEVICE Left: FEMUR DISTAL [employer] 212.221 / NONE / NONE Scr Indira Conic 7.3x85 - [id number] Implanted:Qty: 1 on 03/13/2011 at [facility] DEVICE Left: FEMUR DISTAL [employer] 02.207.28 5 / NONE / NONE Plt Lcp Cndl Lt 4.5x170 6h - [id number] Implanted:Qty: 1 on 03/13/2011 at [facility] DEVICE Left: FEMUR DISTAL [employer] 222.657 / NONE / NONE Description:6 hole 170mmleng th left 4.5mm lcp condylar plate. Scr Didier Sftp 3.5x60 F-Thrd - [id number] Implanted:Qty: 1 on 03/13/2011 at [facility] DEVICE Left: TIBIA PROXIMAL [employer] 204.860 / NONE / NONE Scr Star Lk Sftp 3.5x32 - [id number] Implanted:Qty: 1 on 03/13/2011 at [facility] DEVICE Left: TIBIA PROXIMAL [employer] 212.112 / NONE / NONE Scr Star Lk Sftp 3.5x55 - [id number] Implanted:Qty: 2 on 03/13/2011 at [facility] DEVICE Left: TIBIA PROXIMAL [employer] 212.123 / NONE / NONE Scr Star Lk Sftp 3.5x60 - [id number] Implanted:Qty: 2 on 03/13/2011 at [facility] DEVICE Left: TIBIA PROXIMAL [employer] 212.124 / NONE / NONE Plt Lcp M/Prox Lt 3.5x94 4h - [id number] Implanted:Qty: 1 on 03/13/2011 at [facility] DEVICE Left: TIBIA PROXIMAL [employer] 239.955 / NONE / NONE Scr Didier Ss Sftp 4.5x36 - [id number] Implanted:Qty: 1 on 03/13/2011 at [facility] DEVICE Right: FEMUR DISTAL [employer] 214.836 / NONE / NONE Scr Didier Ss Sftp 4.5x44 - [id number] Implanted:Qty: 1 on 03/13/2011 at [facility] DEVICE Right: FEMUR DISTAL [employer] 214.844 / NONE / NONE Scr Indira Lk 5.0x75 - [id number] Implanted:Qty: 1 on 03/13/2011 at [facility] DEVICE Right: FEMUR DISTAL [employer] 02.205.07 5 / NONE / NONE Scr Indira Lk 5.0x85 - [id number] Implanted:Qty: 2 on 03/13/2011 at [facility] DEVICE Right: FEMUR DISTAL [employer] 02.205.08 5 / NONE / NONE Scr Lk Sftp T25 5.0x44 - [id number] Implanted:Qty: 1 on 03/13/2011 at [facility] DEVICE Right: FEMUR DISTAL [employer] 212.216 / NONE / NONE Scr Lk Sftp T25 5.0x65 - [id number] Implanted:Qty: 1 on 03/13/2011 at [facility] DEVICE Right: FEMUR DISTAL [employer] 212.222 / NONE / NONE Plt Lp T Ti Str 4h - [id number] Implanted:Qty: 3 on 07/28/2014 by Cooper Shelley MD at [facility] DEVICE Right: SKULL [employer] 421.504 / / Scr Matrix Sfdr 4mm - [id number] Implanted:Qty: 6 on 07/28/2014 by Cooper Shelley MD at [facility] DEVICE Right: SKULL [employer] 04.503.10 4.01 / / Lead Linear 3-4 8 Contact 50cm - [id number] Implanted:Qty: 1 on 03/08/2016 by Zelalem Cohen DO at [facility] DEVICE N/A: OTHER-SEE DESCRIPTION [facility] 09/10/2017 [id number] 2500 / / [id number] Description:LUMBAR Lead Linear 3-4 8 Contact 50cm - [id number] Implanted:Qty: 1 on 03/08/2016 by Zelalem Cohen DO at [facility] DEVICE N/A: OTHER-SEE DESCRIPTION [facility] 09/10/2017 [id number] 2500 / / [id number] Description:LUMBAR Lead Linear 3-4 8 Contact 50cm - [id number] Implanted:Qty: 1 on 03/08/2016 by Zelalem Cohen DO at [facility] DEVICE N/A: OTHER-SEE DESCRIPTION [facility] 09/10/2017 [id number] 2500 / / [id number] Description:LUMBAR Lead Linear 3-4 8 Contact 50cm - [id number] Implanted:Qty: 1 on 03/08/2016 by Zelalme Cohen DO at [facility] DEVICE N/A: OTHER-SEE DESCRIPTION [facility] 09/10/2017 [id number] 2500 / / [id number] Description:LUMBAR Lead Linear 3-4 8 Contact 50cm - [id number] Implanted:Qty: 1 on 05/24/2016 by Zelalem Cohen DO at [facility] DEVICE N/A: SPINE LUMBAR POSTERIOR [facility] 01/31/2018 [id number] 2500 / [id number] / Lead Linear 3-4 8 Contact 50cm - [id number] Implanted:Qty: 1 on 05/24/2016 by Zelalem Cohen DO at [facility] DEVICE N/A: SPINE LUMBAR POSTERIOR [facility] 04/26/2018 [id number] 2500 / [id number] / Lead Linear 3-4 8 Contact 50cm - [id number] Implanted:Qty: 1 on 05/24/2016 by Zelalem Cohen DO at [facility] DEVICE N/A: SPINE LUMBAR POSTERIOR [facility] 04/26/2018 [id number] 2500 / [id number] / Lead Linear 3-4 8 Contact 50cm - [id number] Implanted:Qty: 1 on 05/24/2016 by Zelalem Cohen DO at [facility] DEVICE N/A: SPINE LUMBAR POSTERIOR [facility] 04/26/2018 [id number] 2500 / [id number] / Generator Pulse Spectra - [id number] Implanted:Qty: 1 on 05/24/2016 by Zelalem Cohen DO at [facility] DEVICE N/A: SPINE LUMBAR POSTERIOR [facility] 05/08/2018 [id number] / [id number] / [id number] Oneida Ran - [id number] Implanted:Qty: 1 on 05/24/2016 by Zelalem Cohen DO at [facility] DEVICE N/A: SPINE LUMBAR POSTERIOR [facility] 05/02/2018 [id number] 60 / / [id number] Oneida Ran - [id number] Implanted:Qty: 1 on 05/24/2016 by Zelalem Cohen DO at [facility] DEVICE N/A: SPINE LUMBAR POSTERIOR [facility] 02/28/2018 [id number] 60 / / [id number] Procedures Procedure Name Priority Date/Time Associated Diagnosis Comments CREATININE/GFR, WB POC Routine 01/06/2016 12:04 PM COOKIE BREAKER Back pain, 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 HGB A1C Routine 07/29/2014 3:19 AM CDT from Last 3 Months or Most Recently Relevant to Health Maintenance Results * CREATININE/GFR, WB POC (01/06/2016 12:04 PM COOKIE BREAKER) Creat Whole Blood 0.9 0.66 - 1.25 mg/dl [facility] GFR, Estimated >60 >60 ml/min/1.7 3m2 [facility] GFR, Est., If Black >60 >60 ml/min/1.7 3m2 [facility] 01/06/2016 12:0 4 PM COOKIE BREAKER 01/06/2016 12:21 PM COOKIE BREAKER Trae Blair MD LAB_[facility] [phone] * (ABNORMAL) HGB A1C (07/29/2014 3:19 AM CDT) Hgb A1c 6.4(H) 4.3 - 6.1 % [facility] Comment: The usual A1C goal for people with diabetes, age 18-75, is <8.0%. Physicians may recommend a higher or lower goal for specific individuals. 07/29/2014 3:19 AM CDT 07/29/2014 3:22 AM CDT [facility] - 07/29/2014 12:53 PM CDT Performed at [facility], [address] ??[address] [place] Wei PA-C LAB_[address] [address] from Last 3 Months or Most Recently [...] 5:44 PM 07/28/2014 6:50 PM Care Teams Local Sales Associate Relationship Specialty Start Date End Date Franklin Squires MD 100 [facility] [place] [address] PCP - General Family Practice 03/08/16
--- OUTSIDE RECORDS SUMMARY | 2024-05-04 12:46 | XMS_ITS | Encounter Summary ---
Author Organization [facility] Address [address] [address] Care Team Providers Care Console Assembler Name Role Phone Franklin Squires MD Primary Care Provider Encounter Details Date Type Department Care Team (Late st Contact Info) Description 01/06/[address] [facility] Radiology [address] [place] [address] Radiology, Provider MRI SAFETY SHEET AND COMPATIBILITY [...] filedocumented in this encounter Care Teams Console Assembler Relationship Specialty Start Date End Date Franklin Squires MD [address] [place], [place] [address] [address] PCP - General Family Practice 03/08/16 documented as of this encounter
--- OUTSIDE RECORDS SUMMARY | 2024-05-04 12:46 | XMS_ITS | Encounter Summary ---
Author Organization [facility] Address [address], [place] [address] Care Team Providers Care Outdoor Adventure Instructor Name Role Phone Franklin Squires MD Primary Care Provider [phone] Encounter Details Date Type Department Care Team (Late st Contact Info) Description 08/20/2014 Outside Hospital External to [facility] Social History Tobacco Use [...] filedocumented in this encounter Care Teams Outdoor Adventure Instructor Relationship Specialty Start Date End Date Franklin Squires MD [address] [place], [place] [address] [address] PCP - General Family Practice 03/08/16 documented as of this encounter
--- OUTSIDE RECORDS SUMMARY | 2024-05-04 12:46 | XMS_ITS | Encounter Summary ---
Author Organization [facility] Address [address], [place] [address] Care Team Providers Care Rn Wound Name Role Phone Franklin Squires MD Primary Care Provider [phone] Encounter Details Date Type Department Care Team [...] filedocumented in this encounter Care Teams Rn Wound Relationship Specialty Start Date End Date Franklin Squires MD [address] [facility] [place] [address] PCP - General Family Practice 03/08/16 documented as of this encounter
--- OUTSIDE RECORDS SUMMARY | 2024-05-04 12:46 | XMS_ITS | Encounter Summary ---
Author Organization [facility] Address [address] [address] Care Team Providers Care Air Brake Man Name Role Phone Franklin Squires MD Primary Care Provider Encounter Details Date Type Department Care Team (Late st Contact Info) Description 02/09/2016 Correspondence [facility] 401 NeuroSurgery 401 [facility] [place], [place] [id number] Jodi Aguila PA-C [address] [place] [address] PATIENT LIFT PRESCRIPTION Social History Tobacco Use [...] in this encounter Care Teams Air Brake Man Relationship Specialty Start Date End Date Franklin Squires MD 100 [facility] [place] [id number] PCP - General Family Practice 03/08/16 documented as of this encounter
--- OUTSIDE RECORDS SUMMARY | 2024-05-04 12:46 | XMS_ITS | Encounter Summary ---
Author Organization [facility] Address [address] [address] Care Team Providers Care Charging Operator Name Role Phone Franklin Squires MD Primary Care Provider [phone] Encounter Details Date Type Department Care Team (Late st Contact Info) Description 06/07/2015 Correspondence [facility] Radiology [address] [place] [address] Radiology, Provider MRI SAFETY SHEET AND COMPATIBILITY [...] on filedocumented in this encounter Care Teams Charging Operator Relationship Specialty Start Date End Date Franklin Squires MD [address] [place], [place] [address] [address] PCP - General Family Practice 03/08/16 documented as of this encounter
--- OUTSIDE RECORDS SUMMARY | 2024-05-04 12:46 | XMS_ITS | Encounter Summary ---
Author Organization [facility] Address [address], [place] [address] Care Team Providers Care Barrel Brander Name Role Phone Franklin Squires MD Primary Care Provider [phone] Encounter Details Date Type Department Care Team (Late st Contact Info) Description 09/17/2013 Correspondence External to External, [place] [address] EMPOWERMENT RULES Social History Tobacco Use Types [...] External, Provider - 09/17/2013 12:00 AM CST ENE TEACHER documented in this encounter Plan of Treatment Not on file documented as of this encounter Visit Diagnoses Not on filedocumented in this encounter Care Teams Barrel Brander Relationship Specialty Start Date End Date Franklin Squires MD 100 [facility] [place] [address] PCP - General Family Practice 03/08/16 documented as of this encounter
--- OUTSIDE RECORDS SUMMARY | 2024-05-04 12:46 | XMS_ITS | Encounter Summary ---
Author Organization [facility] Address [address], [place] [address] Care Team Providers Care Bank Appraiser Name Role Phone Franklin Squires MD Primary Care Provider Encounter Details Date Type Department Care Team (Late st Contact Info) Description 04/20/[address] [address] Radiology, Provider MRI SAFETY SHEET AND COMPATIBILITY [...] filedocumented in this encounter Care Teams Bank Appraiser Relationship Specialty Start Date End Date Fraknlin Squires MD 100 [facility] [place] [address] PCP - General Family Practice 03/08/16 documented as of this encounter
--- OUTSIDE RECORDS SUMMARY | 2024-05-04 12:46 | XMS_ITS | Encounter Summary ---
Author Organization [facility] Address [address], [place] [address] Care Team Providers Care Feather Stitcher Name Role Phone Franklin Squires MD Primary Care Provider Encounter Details Date Type Department Care Team (Late st Contact Info) Description 12/16/2014 Correspondence External to External, [place] [address] MEDICARE PLAN OF CARE RECERT Social History [...] on filedocumented in this encounter Care Teams Feather Stitcher Relationship Specialty Start Date End Date Franklin Squires MD [address] [place] [address] [place] [address] PCP - General Family Practice 03/08/16 documented as of this encounter
--- OUTSIDE RECORDS SUMMARY | 2024-05-04 12:46 | XMS_ITS | Encounter Summary ---
Author Organization [facility] Address [address], [place] [address] Care Team Providers Care Community Dietitian Name Role Phone Franklin Squires MD Primary Care Provider [phone] Encounter Details Date Type Department Care Team (Late st Contact Info) Description 07/28/2014 Outside Hospital External to External, Provider No address [address] ER VISIT/TRANSFER Social History Tobacco Use [...] on filedocumented in this encounter Care Teams Community Dietitian Relationship Specialty Start Date End Date Franklin Squires MD 100 [facility] [address] [place] [address] PCP - General Family Practice 03/08/16 documented as of this encounter
--- OUTSIDE RECORDS SUMMARY | 2024-05-04 12:46 | XMS_ITS | Encounter Summary ---
Author Organization [facility] Address [address] [address] Care Team Providers Care Packaging Designer Name Role Phone Franklin Squires MD Primary Care Provider [phone] Encounter Details Date Type Department Care Team (Late st Contact Info) Description 06/11/2014 Correspondence [facility] 401 Physical Medicine 401 [facility] [place] [address] May Randle MD [address] [place] [address] [facility] Social History Tobacco Use Types Packs/Day [...] on filedocumented in this encounter Care Teams Packaging Designer Relationship Specialty Start Date End Date Franklin Squires MD 100 [facility] [place] [address] PCP - General Family Practice 03/08/16 documented as of this encounter
--- OUTSIDE RECORDS SUMMARY | 2024-05-04 12:46 | XMS_ITS | Encounter Summary ---
Author Organization [facility] [address] [address] Care Team Providers Care Homicide Squad Captain Name Role Phone Franklin Squires MD Primary Care Provider Encounter Details Date Type Department Care Team (Late st Contact Info) Description 11/10/2014 Correspondence [facility] Physical Therapy [address] [place] [address] Trudi Raymundo, PT [address] [place] [address] LETTER OF MEDICAL NECESSITY Social History Tobacco [...] filedocumented in this encounter Care Teams Homicide Squad Captain Relationship Specialty Start Date End Date Franklin Squires MD 100 [facility] [place] [address] PCP - General Family Practice 03/08/16 documented as of this encounter
--- OUTSIDE RECORDS SUMMARY | 2024-05-04 12:46 | XMS_ITS | Encounter Summary ---
Author Organization [facility] Address [address] [address] Care Team Providers Care Logistics Engineering Manager Name Role Phone Franklin Squires MD Primary Care Provider Encounter Details Date Type Department Care Team (Late st Contact Info) Description 08/20/2014 Outside Hospital External to [facility] H/P Social History Tobacco [...] on filedocumented in this encounter Care Teams Logistics Engineering Manager Relationship Specialty Start Date End Date Franklin Squires MD [address] [facility] [place] [address] PCP - General Family Practice 03/08/16 documented as of this encounter
--- OUTSIDE RECORDS SUMMARY | 2024-05-04 12:46 | XMS_ITS | Encounter Summary ---
Author Organization [facility] Address [address], [place] [address] Care Team Providers Care Eyeglass Lens Grinder Name Role Phone Franklin Squires MD Primary Care Provider Encounter Details Date Type Department Care Team (Late st Contact Info) Description 03/11/2014 Correspondence [facility]ty [facility] 401 Interventional Pain Management 401 [place] [address] Zelalem Cohen, DO [address] [place] [address] [facility] Social History Tobacco Use Types Packs/Day [...] on filedocumented in this encounter Care Teams Eyeglass Lens Grinder Relationship Specialty Start Date End Date Franklin Squires MD 100 [facility] [place] [address] PCP - General Family Practice 03/08/16 documented as of this encounter
--- OUTSIDE RECORDS SUMMARY | 2024-05-04 12:46 | XMS_ITS | Encounter Summary ---
Author Organization [facility] [address] [address] Care Team Providers Care Court Reporter Name Role Phone Franklin Squires MD Primary Care Provider [phone] Encounter Details Date Type Department Care Team (Late st Contact Info) Description 10/26/2013 Correspondence [facility] Physical Therapy [address] [place] [address] Trudi Raymundo, PT [address] [place] [address] LETTER OF MEDICAL NECESSITY Social History Tobacco [...] Raymundo, PT - 10/26/2013 12:00 AM CST CONSULTANT documented in this encounter Plan of Treatment Not on file documented as of this encounter Visit Diagnoses Not on filedocumented in this encounter Care Teams Court Reporter Relationship Specialty Start Date End Date Franklin Squires MD [address] [facility] [place] [address] PCP - General Family Practice 03/08/16 documented as of this encounter
--- OUTSIDE RECORDS SUMMARY | 2024-05-04 12:46 | XMS_ITS ---
Author Organization [employer] Address [address], [place] [address] Care Team Providers Care Senior Corporate Strategy Manager Name Role Phone Franklin Squires MD Primary Care Provider [phone] Active Problems Problem Noted Date Diagnosed Date [...] 0 06/10/2014 History of anticoagulant therapy 02/17/2014 [facility] current use of anticoagulant therapy 0 02/17/2014 [...] treatments are [facility]. Treatments may have been administered in another system. Resolved Problems Problem Noted Date Diagnosed Date Resolved Date Gait abnormality 01/17/2012 02/09/2015 Back pain 01/17/2012 02/09/2015 Paraplegia 04/04/2011 02/09/2015 Osteoporosis 03/06/2011 02/09/2015 Urinary tract infection 12/24/200603/11
--- OUTSIDE RECORDS SUMMARY | 2024-05-04 12:46 | XMS_ITS | Encounter Summary ---
Author Organization [facility] Address [address] [address] Care Team Providers Care Telegraphic Typewriter Repairer Name Role Phone Franklin Squires MD [...] on filedocumented in this encounter Care Teams Telegraphic Typewriter Repairer Relationship Specialty Start Date End Date Franklin Squires MD [address] [facility] [place] [address] PCP - General Family Practice 03/08/16 documented as of this encounter
--- OUTSIDE RECORDS SUMMARY | 2024-05-04 12:47 | XMS_ITS | Encounter Summary ---
Author Organization [facility] Address [address] [address] Care Team Providers Care Columnist/Commentator Name Role Phone Franklin Squires MD Primary Care Provider Encounter Details Date Type Department Care Team (Late st Contact Info) Description 04/24/2012 Correspondence [facility] Radiology [address] [place] [address] Radiology, Provider MRI SAFETY SHEET AND COMPATIBILITY [...] on filedocumented in this encounter Care Teams Columnist/Commentator Relationship Specialty Start Date End Date Franklin Squires MD 100 [facility] [place] [address] PCP - General Family Practice 03/08/16 documented as of this encounter
--- OUTSIDE RECORDS SUMMARY | 2024-05-04 12:47 | XMS_ITS | Encounter Summary ---
Author Organization [facility] Address [address], [place] [address] Care Team Providers Care Inspector Integrated Circuits Name Role Phone Franklin Squires MD Primary Care Provider Encounter Details Date Type Department Care Team (Late st Contact Info) Description 01/08/2013 Scanned History External to Transferred Record, Provider [facility] Social History Tobacco Use Types [...] filedocumented in this encounter Care Teams Inspector Integrated Circuits Relationship Specialty Start Date End Date Franklin Squires MD [address] [facility] [place] [address] PCP - General Family Practice 03/08/16 documented as of this encounter
--- OUTSIDE RECORDS SUMMARY | 2024-05-04 12:47 | XMS_ITS | Encounter Summary ---
Author Organization [facility] Address [address], [place] [address] Care Team Providers Care Senior Management Consultant Name Role Phone Franklin Squires MD [...] filedocumented in this encounter Care Teams Senior Management Consultant Relationship Specialty Start Date End Date Franklin Squires MD 100 [facility] [place] [address] PCP - General Family Practice 03/08/16 documented as of this encounter
--- OUTSIDE RECORDS SUMMARY | 2024-05-04 12:47 | XMS_ITS | Encounter Summary ---
Author [facility] Address [address], [place] [address] Care Team Providers Care Pipe Installer Name Role Phone Franklin Squires MD Primary Care Provider [phone] Encounter Details Date Type Department Care Team (Late st Contact Info) Description 11/13/2012 Correspondence [facility] Radiology [address] [place] [address] Radiology, Provider MRI SAFETY SHEET AND COMPATIBILITY [...] RADIOLOGY, PROVIDER - 11/13/2012 12:00 AM CST ERY CHECKER documented in this encounter Plan of Treatment Not on file documented as of this encounter Visit Diagnoses Not on filedocumented in this encounter Care Teams Pipe Installer Relationship Specialty Start Date End Date Franklin Squires MD 100 [facility] [place] [address] PCP - General Family Practice 03/08/16 documented as of this encounter
== END 2024-05-04 12:44 | disposition home or self-care (01) ==
LOC: WOUND 12:43
PROVIDERS: PCP Family Medicine; Visit Provider Nurse Practitioner Family
DX: L89.324 Pressure ulcer of left buttock, stage 4 (principal); E11.622 Type 2 diabetes mellitus with other skin ulcer; G82.50 Quadriplegia, unspecified
CPT/HCPCS: 15271; Q4158

== ENCOUNTER 2024-05-11 12:36 | Outpatient (CLI) | payer MEDICARE, OTHER, SELFPAY ==
--- OUTSIDE RECORDS SUMMARY | 2024-05-11 12:39 | XMS_ITS | Clinical Summary ---
Author Organization [facility] Address [place], [place] [address] Care Team Providers Care Mri Technician Name Role Phone Zelalem Cohen MD Unavailable [phone] May Randle MD Unavailable [phone] Franklin Squires MD Primary Care Provider Fred CraftW Unavailable [phone] Diane Charles MD Unavailable [phone] Julia Ware RN Unavailable [phone] Allergies Active Allergy Reactions Criticality Noted Date [...] bedIndications:Non-heal ing surgical wound, subsequent encounter Drive [employer] 8 inch low loss mattress and 1/2 rails. Semi-electric bed. Length of need 6 weeks. 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 Max acetaminophen dose: 4000mg in 24 hrs. Active sodium chloride (AYR SALINE NASL) Inhale 2-3 Sprays in the nostril(s) once daily if needed. 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 [employer] [place] Click Ostomy Barrier with belt tabs 60mm, Cut-to-Fit 01/16 - 2 11/18. Item #[id number]. 1 Each 11 021 Active baclofen (LIORESAL) [...] 1 Capsule by mouth once daily. Active gabapentin (NEURONTIN) 400 mg capsuleIndications:Gay re back pain Take 1 Capsule (400 mg) by mouth three times daily. 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),Anticoagulation monitoring, INR range 2-3,Anticoagulation monitoring, INR range 2-3,SDH (subdural hematoma) (HC) Take by mouth 5 mg (5 mg x 1) every Mon, [place]; 7.5 mg (7.5 mg x 1) all other days in the evening OR as directed Active oxyCODONE 10 mg tabletIndications:Chron ic pain syndrome TAKE ONE TABLET BY MOUTH EVERY 6 HOURS 120 Tablet Active warfarin (COUMADIN) 5 mg tabletIndications: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 Active DULoxetine (CYMBALTA) 60 mg Delayed-release capsuleIndications:Depr [...] 6 hours. 120 Tablet 024 2023 Discontinued gabapentin (NEURONTIN) 400 mg capsuleIndications:Gay re back pain Take 1 Capsule (400 mg) by mouth three times daily. 270 Capsule 3 024 2023 Discontinued(* Availability/F ormulary change/Cost of medication) amoxicillin-clavulanate 875-125 mg tablet (AUGMENTIN) Take 1 Tablet by mouth two times daily with meals for 10 days. 20 Tablet 024 2023 warfarin (COUMADIN) 5 mg tabletIndications:Iliof emoral thrombophlebitis [...] (7.5 mg x 1) all other days or as directed. 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 02/19/2007 09/27/2008 Depressive disorder, not elsewhere classified 02/14/20 07 01/15/2018 Abnormality of gait 12/24/2006 09/27/20 08 Urinary tract infection, site not specified 12/24/2006 01/15/2018 BENIGN ESSENTIAL HYPERTENSION 12/24/2006 04/17/2016 Overview: borderline Necrotizing fasciitis 2018 Type 2 diabetes mellitus Encounters Date Type Department Care Team Description 05/06/2024 Anticoagulation (warfarin) [address] [phone] [place] [address] Inr Clinic In [facility] Anticoagulation (Acelis) 05/05/[address] [phone] Franklin Squires MD Form (60 Day Summary Report) 05/05/[address] [phone] Franklin Squires MD Refill Request (Warfarin) 05/04/[address] [phone] Franklin Squires MD Form 05/04/[address] [phone] Franklin Squires MD Refill Request (Oxycodone) 05/01/2024 Anticoagulation (warfarin) [address] [phone] [place] [address] Inr Clinic In [facility] Anticoagulation (Acelis) 04/29/2024 Refill [facility] [address] [place] [phone] Franklin Squires MD Refill Request (Duloxetine, Donepezil) 04/24/2024 2:49 PM CDT - 04/24/2024 2:50 PM CDT Emergency [facility] [address] [place] [address] Discharge Disposition: Against Medical Advice or Discontinued Care 04/24/2024 Travel 04/24/2024 Anticoagulation (warfarin) [address] [phone] 1, [facility] Inr Clinic In [facility] Anticoagulation (Acelis) 04/21/[address] [phone] Franklin Squires MD Refill Request (Gabapentin) 04/20/[address] [place] [address] Franklin Squires MD Form (Physician Orders. Urinary Catheter - Suprapubic. ) 04/20/2024 Refill [facility] [address] [place] [address] Franklin Squires MD Refill Request (Gabapentin 400 mg) 04/13/[address] [phone] Franklin Squires MD Form (Standard Written Order: Rehab Accessories. Cushion, Quadtro Select HI PRO 20x20 or 11x11 CELL) 04/07/2024 Anticoagulation (warfarin) [address] [phone] 1, [facility] Inr Clinic In [facility] Anticoagulation (acelis) 04/07/[address] [phone] Franklin Squires MD Form (Physician Orders) 04/03/2024 2:30 PM CDT Office Visit [facility] [address] [place] [address] Franklin Squires MD Follow Up (6 week follow up) 04/03/2024 Travel 04/02/[address] [phone] Franklin Squires MD Refill Request (Oxycodone) 03/28/[address] [phone] Franklin Squires MD Refill Request (Furosemide) 03/20/2024 4:32 PM CDT - 03/20/2024 8:34 PM CDT Emergency [facility] [address] [place] [address] Quan Corbett PA Suprapubic catheter dysfunction, initial encounter (HC) (Primary Dx) Discharge Disposition: Home Self Care 03/20/2024 Travel 03/20/[address] [phone] Franklin Squires MD other (FYI / UPDATE ) 03/19/2024 Anticoagulation (warfarin) [address] [phone] 1, [facility] Anticoagulation (acelis) 03/13/2024 2:10 PM CDT Orders Only [address] [phone] Lab, [facility] Lab 03/13/2024 Travel 03/10/[address] [phone] Franklin Squires MD Form (Home Health Certification and Plan of Care. ) 03/10/[address] [phone] Franklin Squires MD Form (60 day summary report. SNV 2x/wk for wound care.) 03/05/2024 Anticoagulation (warfarin) [address] [phone] , [facility] Inr Clinic In [facility] Anticoagulation (Acelis) 03/02/[address] [phone] Gabrielle Prado PA Refill Request (Oxycodone) 03/02/[address] [phone] Franklin Squires MD Refill Request (Lorazepam) 02/24/2024 Patient Outreach [facility] Care Management - Advanced Care Team [address] [place] [address] Archana Wright, stove mounter Management (ACO outreach engagement ) 02/24/[address] [phone] Franklin Squires MD Form (Physician Orders. Medication order: Lorazapam 0.5 mg; oral tablet. Amoxicillin- clavulanate 875mg) 02/24/[address] [phone] Franklin Squires MD Refill Request (LORazepam (ATIVAN) 0.5 mg tab) 02/20/2024 1:30 PM CDT Office Visit [address] [phone] Franklin Squires MD Hospital F/U (02/15/24) 02/20/2024 Anticoagulation (warfarin) [address] [phone] 1, [facility] Inr Clinic In [facility] Anticoagulation 02/20/2024 Travel 02/18/2024 Anticoagulation (warfarin) [facility] [address] [place] [address] 1, [facility] Inr Clinic In [facility] Anticoagulation (acelis) 02/18/2024 Patient Outreach [facility] [address] [place] [address] Archana Stein, VALERIE Primary RN Care Management (Hospital DC:02/17/24/LACE:47/[facility]); Hospital F/U 02/17/2024 Telephone [facility] [address] [place] [address] Franklin Squires MD Form (Service Order: Hold. Acute care hospitalization for pneumonia. Hold [facility] services pending discharge plans. Effective: 02/15/2024) 02/15/2024 4:34 PM CDT - 02/17/2024 2:45 PM CDT Hospital Encounter [facility] [address] [place] [address] [facility] Internal [facility] Lindsay[facility] MD Khakbaznejad, Alireza, MD Pneumonia due to infectious organism, unspecified laterality, unspecified part of lung (Primary Dx); History of DVT (deep vein thrombosis); Pressure injury of right buttock, stage 1 Discharge Disposition: Home Self Care 02/15/2024 Travel 02/15/2024 Refill [facility] [address] [place] [address] 1, [facility] In [facility] Refill Request (Warfarin) 02/14/2024 3:10 PM CDT - 02/15/2024 2:45 PM CDT Hospital Encounter [facility] [address] [place] [address] Quan Corbett, ROXY Ramírez, MD Terence Bruon, Todd Glass, George Michael, Malini Nayak NP Leukocytosis, unspecified type (Primary Dx); Fever, unspecified fever cause; Chills; Tachycardia; Pulmonary infiltrate; Elevated C-reactive protein (CRP); Pressure injury of deep tissue of left buttock Discharge Disposition: Critical [facility] Hospital 02/14/2024 Travel from Last 3 Months Immunizations Name Administration Dates Next Due COVID-19 vaccine ([employer] 30mcg/0.3mL) 12YO+ BIVALENT PF, MDV 10/22/2022 [...] Associated Diagnosis Comments HOME MONITOR AC Routine 05/06/2024 12:00 AM CDT HOME MONITOR AC Routine 05/01/2024 12:00 AM [...] AUTO DIFFERENTIAL STAT 02/14/2024 3:50 PM CDT from Last 3 Months Results * (ABNORMAL) HOME MONITOR AC (05/06/2024 12:00 AM CDT) Only the most recent of7 resultswithin the time period is included. PATIENT REPORTED HOME INR 1.9(L) 2.00 - 3.00 [facility] 05/06/2024 Franklin Squires MD OTHER [facility] [address] [place] [address] * BLADDER CATHETERIZATION (03/20/2024 7:52 PM CDT) [...] ?Risks discussed: ??Pain, incomplete procedure and infection [place] protocol: ??Procedure explained and questions answered to [...] CDT) CULTURE RESULT(A) 03/28/2024 11:28 AM CDT [facility] CULTURE 2+ Klebsiella pneumoniae 03/28/2024 11:28 AM CDT [facility] CULTURE 2+ Pseudomonas aeruginosa 03/28/2024 11:28 AM T [facility] CULTURE 2+ Staphylococcus aureus 03/28/2024 11:28 AM T [facility] Comment:Isolate is MRSA (Met hicillin-resistant Staph aureus). CULTURE 2+ Mixed brigette present 03/28/2024 11:28 AM CDT [facility] GRAM STAIN No PMNs 03/28/2024 11:28 AM CDT [facility] GRAM STAIN No Epithelial cells 03/28/2024 11:28 AM T [facility] GRAM STAIN No RBCs 03/28/2024 11:28 AM CDT [facility] GRAM STAIN 4+ Gram Negative Bacilli 03/28/2024 11:28 AM CDT [facility] GRAM STAIN 2+ Gram Positive Cocci 03/28/2024 11:28 AM CDT [facility] Other SPECIMEN FROM PENIS / Unknown Non-Blood / Unknown 03/20/2024 5:01 PM CDT 03/20/2024 5:05 PM CDT Narrative [facility] - 03/28/2024 11:28 AM CDT Mixed brigette, [...] TRIMETHOPRIM/SULF <=0.5/9.5: S Quan RAMSEY MICROBIOLOG Y [facility] [address] [place] [address], * (ABNORMAL) CBC WITH AUTO DIFFERENTIAL (03/20/2024 4:58 PM CDT) Only the most recent of3 resultswithin the time period is included. WHITE BLOOD COUNT 10.9 4.5 - 11.0 thou/cu mm 03/20/2024 5:06 PM [facility] RED BLOOD COUNT 4.92 4.30 - 5.90 mil/cu mm 03/20/2024 5:06 PM [facility] HEMOGLOBIN 12.7(L) 13.5 - 17.5 g/dL 03/20/2024 5:06 PM [facility] HEMATOCRIT 40.0 37.0 - 53.0 % 03/20/2024 5:06 PM [facility] MCV 81 80 - 100 fL 03/20/2024 5:06 PM [facility] MCH 25.8(L) 26.0 - 34.0 pg 03/20/2024 5:06 PM [facility] MCHC 31.8(L) 32.0 - 36.0 g/dL 03/20/2024 5:06 PM [facility] RDW 18.1(H) 11.5 - 15.5 % 03/20/2024 5:06 PM [facility] PLATELET COUNT 263 140 - 440 thou/cu mm 03/20/2024 5:06 PM [facility] MPV 9.4 6.5 - 11.0 fL 03/20/2024 5:06 PM [facility] % NEUT 68.4 % 03/20/2024 5:06 PM [facility] % LYMPH 20.1 % 03/20/2024 5:06 PM [facility] % MONO 8.4 % 03/20/2024 5:06 PM [facility] % EOS 2.8 % 03/20/2024 5:06 PM [facility] % BASO 0.3 % 03/20/2024 5:06 PM [facility] ABSOLUTE NEUTROPHILS 7.4(H) 1.7 - 7.0 thou/cu mm 03/20/2024 5:06 PM [facility] ABSOLUTE LYMPHOCYTES 2.2 0.9 - 2.9 thou/cu mm 03/20/2024 5:06 PM CDT [facility] ABSOLUTE MONOCYTES 0.9(H) <0.9 thou/cu mm 03/20/2024 5:06 PM CDT [facility] ABSOLUTE EOSINOPHILS 0.3 <0.5 thou/cu mm 03/20/2024 5:06 PM CDT [facility] ABSOLUTE BASOPHILS 0.0 <0.3 thou/cu mm 03/20/2024 5:06 PM CDT [facility] Blood BLOOD SPECIMEN / Unknown Butterfly / Unknown 03/20/2024 4:58 PM CDT 03/20/2024 5:02 PM CDT Quan RAMSEY HEMATOLOGY Performing Organization Address [facility]/ZIP Co de Phone Number [facility] [address] [place] [address] * LACTATE VENOUS (03/20/2024 4:58 PM CDT) Only the most recent of2 resultswithin the time period is included. Pathologist [facility] LACTATE,VENOUS 1.3 0.5 - 2.0 mmol/L 03/20/2024 5:21 PM CDT [facility] Blood BLOOD SPECIMEN / Unknown Butterfly / Unknown 03/20/2024 4:58 PM CDT 03/20/2024 5:02 PM CDT Quan RAMSEY CHEMISTRY Performing Organization Address City/[facility]/ZIP Co de Phone Number [facility] [address] [place] [address] * (ABNORMAL) BASIC METABOLIC PANEL (03/20/2024 4:58 PM CDT) SODIUM 139 136 - 145 mmol/L 03/20/2024 5:22 PM CDT [facility] POTASSIUM 4.5 3.5 - 5.1 mmol/L 03/20/2024 5:22 PM CDT [facility] CHLORIDE 100 98 - 107 mmol/L 03/20/2024 5:22 PM [facility] CO2,TOTAL 29 22 - 29 mmol/L 03/20/2024 5:22 PM [facility] ANION GAP 10 5 - 18 03/20/2024 5:22 PM [facility] GLUCOSE 115(H) 70 - 99 mg/dL 03/20/2024 5:22 PM [facility] CALCIUM 9.4 8.8 - 10.2 mg/dL 03/20/2024 5:22 PM [facility] BUN 21 8 - 23 mg/dL 03/20/2024 5:22 PM [facility] CREATININE 0.63(L) 0.70 - 1.20 mg/dL 03/20/2024 5:22 PM [facility] BUN/CREAT RATIO 33(H) 10 - 20 5:22 PM [facility] eGFR >90 >90 mL/min/1.7 3m2 03/20/2024 5:22 PM [facility] Comment:As of 2022, eG FR is calculated by the CKD-EPI creatinine equation without race adjustment. ??eGFR can be influenced by muscle mass, exercise, and diet. ??The reported eGFR is an estimation only and is only applicable if the renal function is stable. Blood BLOOD SPECIMEN / Unknown Butterfly / Unknown 03/20/2024 4:58 PM CDT 03/20/2024 5:02 PM T Quan RAMSEY CHEMISTRY [facility] [address] [place] [address] * (ABNORMAL) URINALYSIS MICROSCOPIC (03/13/2024 11:04 AM T) Only the most recent of2 resultswithin the time period is included. RBC 0-2 0-2, None Seen /HPF 03/13/2024 2:26 PM T [facility] WBC 6-10(A) 0-2, 3-5, None Seen /HPF 03/13/2024 2:26 PM CDT [facility] BACTERIA Few None Seen, Rare, Few Bacteria/ HPF 03/13/2024 2:26 PM CDT [facility] EPITHELIAL CELLS Few None Seen, Few Epi/HPF 03/13/2024 2:26 PM CDT [facility] WHITE CELL CLUMPS Present(A) (none) 03/13/2024 2:26 PM CDT [facility] Urine URINE SPECIMEN / Unknown Non-Blood / Unknown 03/13/2024 11:04 AM CDT 03/13/2024 1:37 PM CDT Franklin Squires MD URINE [facility] [address] [place] [address] * (ABNORMAL) URINE CULTURE (03/13/2024 11:04 AM CDT) Only the most recent of2 resultswithin the time period is included. CULTURE RESULT(A) 03/16/2024 9:13 AM CDT [facility] CULTURE >100,000 CFU/mL Pseudomonas aeruginosa 03/16/2024 9:13 AM CDT [facility] CULTURE 50,000-100,000 CFU/mL Staphylococcus aureus 03/16/2024 9:13 AM CDT [facility] CULTURE 10,000-50,000 CFU/mL Enterobacter cloacae complex 03/16/2024 9:13 AM CDT [facility] Comment: May develop resistance during [...] AM CDT 03/13/2024 1:37 PM CDT Narrative [facility] - 03/16/2024 9:13 AM CDT May represent colonization. No further workup pending. Franklin Squires MD MICROBIOLOGY [facility] [address] [place] [address], [place] * (ABNORMAL) UA W/ SEDIMENT EXAM REFLEXED PER CRITERIA (03/13/2024 11:04 AM CDT) Only the most recent of2 resultswithin the time period is included. COLOR Yellow Yellow Color 03/13/2024 2:24 PM [facility] CLARITY Clear Clear Clarity 03/13/2024 2:24 PM [facility] SPECIFIC GRAVITY,URINE <=1.005(A) 1.010, 1.015, 1.020, 1.025 03/13/2024 2:24 PM [facility] PH,URINE 6.5 6.0, 7.0, 8.0, 5.5, 6.5, 7.5, 8.5 03/13/2024 2:24 PM [facility] UROBILINOGEN, QUALITATIVE Normal Normal EU/dl 03/13/2024 2:24 PM [facility] PROTEIN, URINE Negative Negative mg/dL 03/13/2024 2:24 PM [facility] GLUCOSE, URINE Negative Negative mg/dL 03/13/2024 2:24 PM [facility] KETONES,URINE Negative Negative mg/dL 03/13/2024 2:24 PM [facility] BILIRUBIN,URI NE Negative Negative 03/13/2024 2:24 PM [facility] OCCULT BLOOD,URINE Moderate(A) Negative 03/13/2024 2:24 PM [facility] NITRITE Negative Negative 03/13/2024 2:24 PM [facility] LEUKOCYTE ESTERASE Moderate(A) Negative 03/13/2024 2:24 PM [facility] Urine URINE SPECIMEN / Unknown Non-Blood / Unknown 03/13/2024 11:04 AM CDT 03/13/2024 1:37 PM CDT Franklin Squires MD URINE Performing Organization Address City/[facility]/ZIP Co de Phone Number [facility] [address] [place] [address] * POTASSIUM (02/20/2024 2:15 PM CDT) Only the most recent of2 resultswithin the time period is included. POTASSIUM 4.3 3.5 - 5.1 mmol/L 02/20/2024 4:02 PM CDT [facility] Blood BLOOD SPECIMEN / Unknown Venipuncture / Unknown 02/20/2024 2:15 PM CDT 02/20/2024 3:06 PM CDT Franklin Squires MD CHEMISTRY Performing Organization Address [facility] de Phone Number [facility] [address] [place] [address] * (ABNORMAL) PROTIME-INR (02/20/2024 2:15 PM CDT) Only the most recent of5 resultswithin the time period is included. INR 1.9(H) <1.3 02/20/2024 2:38 PM CDT [facility] PROTIME 21.2(H) 10.3 - 12.3 sec 02/20/2024 2:38 PM CDT [facility] Blood BLOOD SPECIMEN / Unknown Venipuncture / Unknown 02/20/2024 2:15 PM CDT 02/20/2024 2:15 PM CDT Narrative [facility] - 02/20/2024 2:38 PM [...] is on UFH. Franklin Squires MD HEMATOLOGY [facility] [address] [place] [address] * SODIUM (02/17/2024 5:11 AM CDT) SODIUM 140 136 - 145 mmol/L 02/17/2024 6:[address] [facility] Blood BLOOD SPECIMEN / Unknown Butterfly / Unknown 02/17/2024 5:11 AM CDT 02/17/2024 5:44 AM CDT John Ludwig MD CHEMISTRY [facility] INTERNAL ZIP [id number] [facility] [employer] [place] [address] * (ABNORMAL) CREATININE (02/17/2024 5:11 AM CDT) eGFR >90 >90 mL/min/1.7 3m2 02/17/2024 6:[address] [facility] Comment:As of 2022, eG FR is calculated by the CKD-EPI creatinine equation without race adjustment. ??eGFR can be influenced by muscle mass, exercise, and diet. ??The reported eGFR is an estimation only and is only applicable if the renal function is stable. CREATININE 0.56(L) 0.70 - 1.20 mg/dL 02/17/2024 6:[address] [facility] Blood BLOOD SPECIMEN / Unknown Butterfly / Unknown 02/17/2024 5:11 AM CDT 02/17/2024 5:44 AM CDT John Ludwig MD CHEMISTRY [facility] INTERNAL ZIP [phone] [employer] [place] [address] * MAGNESIUM (02/17/2024 5:11 AM CDT) MAGNESIUM 2.0 1.6 - 2.4 mg/dL 02/17/2024 7:[address] [facility] Blood BLOOD SPECIMEN / Unknown Butterfly / Unknown 02/17/2024 5:11 AM CDT 02/17/2024 5:44 AM CDT John Ludwig MD CHEMISTRY [facility] INTERNAL ZIP [id number] [id number] [place] [address] * (ABNORMAL) GLUCOSE METER (02/16/2024 11:41 AM CDT) Only the most recent of6 resultswithin the time period is included. GLUCOSE METER 129(H) 65 - 100 mg/dL 02/16/2024 12:[address] [facility] Blood BLOOD SPECIMEN / Unknown 02/16/2024 11:41 AM CDT 02/16/2024 12:02 PM CDT John Ludwig MD CHEMISTRY [facility] INTERNAL ZIP [phone] [place] [address] * LEGIONELLA AND PNEUMOCOCCAL URINE ANTIGEN (02/15/2024 10:25 AM CDT) STREP PNEUMO ANTIGEN Negative 02/15/2024 3:46 PM CDT [facility] Comment:Presumptive negative for pneumococcal pneumonia, suggesting no current or recent pneumococcal infection. Infection due to S. pneumoniae cannot be ruled out since the antigen present in the sample may be below the detection limit of the test. LEGIONELLA ANTIGEN Negative 02/15/2024 3:46 PM CDT [facility] Comment:Negative for L.pneum ophila [...] James Ramírez MD MICROBIOLOGY Performing Organization Address City/[facility]/ZIP Co de Phone Number [facility] [address] [place] [address], * (ABNORMAL) WHITE BLOOD COUNT (02/15/2024 5:54 AM CDT) WHITE BLOOD COUNT 11.7(H) 4.5 - 11.0 thou/cu mm 02/15/2024 7:16 AM CDT [facility] Blood BLOOD SPECIMEN / Unknown Venipuncture / Unknown 02/15/2024 5:54 AM CDT 02/15/2024 7:09 AM CDT James Ramírez MD HEMATOLOGY Performing Organization Address City/[facility]/ZIP Co de Phone Number [facility] [address] [place], [place] [id number] * CT ABDOMEN PELVIS WO (02/14/2024 8:12 [...] 6-15 ng/L ng/L 02/14/2024 8:12 PM CDT [facility] Blood BLOOD SPECIMEN / Unknown Venipuncture / Unknown 02/14/2024 7:49 PM CDT 02/14/2024 7:53 PM CDT Quan RAMSEY CHEMISTRY [facility] [address] [place] [id number] * (ABNORMAL) TROPONIN T (HS) ACUTE W/2HR REFLEX (02/14/2024 5:35 PM CDT) TROPONIN T HS 33(H) 6-15 ng/L ng/L 02/14/2024 6:42 PM CDT [facility] Blood BLOOD SPECIMEN / Unknown Venipuncture / Unknown 02/14/2024 5:35 PM CDT 02/14/2024 5:38 PM CDT Narrative [facility] - 02/14/2024 6:42 PM [...] emergency department patient population. Quan RAMSEY CHEMISTRY [facility] [address] [place] [address] * XR CHEST 1 VIEW [...] CULTURE No Growth. 02/20/2024 5:27 AM CDT [facility] Blood BLOOD SPECIMEN / Unknown Butterfly / Unknown 02/14/2024 3:58 PM CDT 02/14/2024 4:02 PM CDT Quan RAMSEY MICROBIOLOG Y [facility] [address] [facility] [place] [address] * PROCALCITONIN (02/14/2024 3:50 PM CDT) PROCALCITONIN 0.10 ng/ml 02/14/2024 5:09 PM CDT [facility] Blood BLOOD SPECIMEN / Unknown Butterfly / Unknown 02/14/2024 3:50 PM CDT 02/14/2024 4:39 PM CDT [facility] - 02/14/2024 5:09 PM CDT [...] Quan RAMSEY SEND OUTS Performing Organization Address [facility] de Phone Number [facility] [address] [place] [address] * (ABNORMAL) C-REACTIVE PROTEIN (02/14/2024 3:50 PM CDT) [facility] C-REACTIVE PROTEIN 10.9(H) <0.5 mg/dL 02/14/2024 5:09 PM CDT [facility] Blood BLOOD SPECIMEN / Unknown Butterfly / Unknown 02/14/2024 3:50 PM CDT 02/14/2024 4:02 PM CDT Quan RAMSEY CHEMISTRY Performing Organization Address [facility] de Phone Number [facility] [address] [place] [address] * (ABNORMAL) COMP METABOLIC PANEL (02/14/2024 3:50 PM CDT) Pathologist [facility] SODIUM 134(L) 136 - 145 mmol/L 02/14/2024 4:24 PM T [facility] POTASSIUM 4.3 3.5 - 5.1 mmol/L 02/14/2024 4:24 PM T [facility] CHLORIDE 96(L) 98 - 107 mmol/L 02/14/2024 4:24 PM [facility] CO2,TOTAL 25 22 - 29 mmol/L 02/14/2024 4:24 PM [facility] ANION GAP 13 5 - 18 02/14/2024 4:24 PM [facility] GLUCOSE 118(H) 70 - 99 mg/dL 02/14/2024 4:24 PM [facility] CALCIUM 9.4 8.8 - 10.2 mg/dL 02/14/2024 4:24 PM [facility] BUN 15 8 - 23 mg/dL 02/14/2024 4:24 PM [facility] CREATININE 0.60(L) 0.70 - 1.20 mg/dL 02/14/2024 4:24 PM [facility] BUN/CREAT RATIO 25(H) 10 - 20 4:24 PM [facility] eGFR >90 >90 mL/min/1.7 3m2 02/14/2024 4:24 PM [facility] Comment:As of 2022, eG FR is calculated by the CKD-EPI creatinine equation without race adjustment. ??eGFR can be influenced by muscle mass, exercise, and diet. ??The reported eGFR is an estimation only and is only applicable if the renal function is stable. ALBUMIN 4.1 4.0 - 4.9 g/dL 02/14/2024 4:24 PM [facility] PROTEIN,TOTAL 7.8 6.0 - 8.0 g/dL 02/14/2024 4:24 PM [facility] BILIRUBIN,TOTAL 0.6 0.0 - 1.2 mg/dL 02/14/2024 4:24 PM [facility] ALK PHOSPHATASE 117 40 - 129 IU/L 02/14/2024 4:24 PM [facility] ALT (SGPT) 47 10 - 50 IU/L 02/14/2024 4:24 PM [facility] AST (SGOT) 42 10 - 50 IU/L 02/14/2024 4:24 PM [facility] Blood BLOOD SPECIMEN / Unknown Butterfly / Unknown 02/14/2024 3:50 PM CDT 02/14/2024 4:02 PM CDT Quan RAMSEY CHEMISTRY [facility] [address] [place] [address] from Last 3 Months Additional Health Concerns [...] 12 months since positive culture): resides in acute/termite treater care, receiving hemodialysis, has chronic open wounds/skin damage, has long-term percutaneous indwelling medical devices Exclusions for nares collection (if <12 months since positive culture) include all of the previous exclusions plus patients on antibiotics 7 days prior to collection 03/13/2018 03/20/2024 Advance Directives Documents on File Type Date Recorded 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 Healthcare Directive 05/09/2023 023 Healthcare [...] Code Status Discussion: Reviewed Preferences Care Teams Mri Technician Relationship Specialty Start Date End Date Franklin Squires MD [address] [facility] [place] [address] PCP - General Family Practice 10/18/15 Zelalem Cohen MD Physical Therapist 03/13/12 May Randle MD Physical Medicine and Rehabilitation 03/13/12 Luana, FAUSTINO Krueger [address] [place] [address] Graphic Design Specialist 05/03/17 Diane Charles MD [address] [place] [address] Surgery - Urology 01/17/23 Julia Ware, RN [address] [place] [address] Registered Nurse 07/17/23
--- OUTSIDE RECORDS SUMMARY | 2024-05-11 12:40 | XMS_ITS | Encounter Summary ---
Author Organization [facility] Address [address], [place] [address] Care Team Providers Care Personal Computer Network Analyst Name Role Phone Franklin Squires MD Primary Care Provider Encounter Details Date Type Department Care Team (Late st Contact Info) Description 01/06/2016 Correspondence [facility] Radiology [address] [place] [address] Radiology, Provider MRI SAFETY SHEET AND COMPATIBILITY [...] on filedocumented in this encounter Care Teams Personal Computer Network Analyst Relationship Specialty Start Date End Date Franklin Squires MD [address] [place], [place] [address] [address] PCP - General Family Practice 03/08/16 documented as of this encounter
--- OUTSIDE RECORDS SUMMARY | 2024-05-11 12:40 | XMS_ITS | Encounter Summary ---
Author Organization [facility] Address [address], [place] [address] Care Team Providers Care Squash Centre Manager Name Role Phone Franklin Squires MD [...] on filedocumented in this encounter Care Teams Squash Centre Manager Relationship Specialty Start Date End Date Franklin Squires MD 100 [facility] [address] PCP - General Family Practice 03/08/16 documented as of this encounter
--- OUTSIDE RECORDS SUMMARY | 2024-05-11 12:40 | XMS_ITS ---
Author Organization [facility] Address [address] [address] Care Team Providers Care Shank Burnisher Name Role Phone Franklin Squires MD Primary [...] 06/10/2014 History of anticoagulant therapy 02/17/2014 terminal gauger current use of anticoagulant therapy 0 02/17/2014 [...] treatments are documented for this patient in [facility]. Treatments may have been administered in another system. Resolved Problems Problem Noted Date Diagnosed Date Resolved Date Gait abnormality 01/17/2012 02/09/2015 Back pain 01/17/2012 02/09/2015 Paraplegia 04/04/2011 02/09/2015 Osteoporosis 03/06/2011 02/09/2015 Urinary tract infection 12/24/200603/11
--- OUTSIDE RECORDS SUMMARY | 2024-05-11 12:40 | XMS_ITS | Encounter Summary ---
Author Organization [facility] [address], [place] [address] Care Team Providers Care Treating Engineer Helper Name Role Phone Franklin Squires MD Primary Care Provider Encounter Details Date Type Department Care Team (Late st Contact Info) Description 11/10/2014 Correspondence [facility] Physical Therapy [address] [place] [address] Trudi Raymundo, PT [address] [place] [address] LETTER OF MEDICAL NECESSITY Social History Tobacco [...] on filedocumented in this encounter Care Teams Treating Engineer Helper Relationship Specialty Start Date End Date Franklin Squires MD 100 [facility] [place] [address] PCP - General Family Practice 03/08/16 documented as of this encounter
--- OUTSIDE RECORDS SUMMARY | 2024-05-11 12:40 | XMS_ITS | Encounter Summary ---
Author Organization [facility] Address [address] [address] Care Team Providers Care Graduate Studies Dean Name Role Phone Franklin Squires MD Primary Care Provider [phone] Encounter Details Date Type Department Care Team (Late st Contact Info) Description 09/17/2013 Correspondence External to External, [place] [address] EMPOWERMENT RULES Social History Tobacco Use Types [...] External, Provider - 09/17/2013 12:00 AM CST OR HELPER documented in this encounter Plan of Treatment Not on file documented as of this encounter Visit Diagnoses Not on filedocumented in this encounter Care Teams Graduate Studies Dean Relationship Specialty Start Date End Date Franklin Squires MD 100 [facility] [place] [address] PCP - General Family Practice 03/08/16 documented as of this encounter
--- OUTSIDE RECORDS SUMMARY | 2024-05-11 12:40 | XMS_ITS | Encounter Summary ---
Author Organization [facility] Address [address] [address] Care Team Providers Care Blacking Machine Operator Name Role Phone Franklin Squires MD Primary Care Provider Encounter Details Date Type Department Care Team (Late st Contact Info) Description 01/08/2013 Scanned History External to Transferred Record, Provider [facility] Social History Tobacco Use Types Packs/Day Years [...] on filedocumented in this encounter Care Teams Blacking Machine Operator Relationship Specialty Start Date End Date Franklin Squires MD 100 [facility] [address] PCP - General Family Practice 03/08/16 documented as of this encounter
--- OUTSIDE RECORDS SUMMARY | 2024-05-11 12:40 | XMS_ITS | Clinical Summary ---
Author Organization [facility] Address [address] [place] [address] Care Team Providers Care Patternmaker Sample Name Role Phone Franklin Squires MD Primary Care Provider [phone] Source Comments You are receiving this document [...] for each transition of care or referral. Lookback Allergies Active Allergy Reactions Criticality Noted Date [...] Comments Blood Pressure 120/63 01/18/2022 12:59 PM BUSINESS PROJECT MANAGER Pulse 87 01/18/2022 12:59 PM BUSINESS PROJECT MANAGER Temperature 36.3 ??C (97.4 ??F) 01/18/2022 12:59 [...] this topic Medical Devices Implanted Type Area Maintenance Of Way Foreman Device Identifier Shelf Expiration Date Model / Serial / Lot [id number] 4ml Tisseel Explanted:([place]osevelt ntity not on file) BIOLOGIC N/A: NECK Lynne Fenwall 09/10/2011 [id number] / [id number] / [id number] Description:posterior Cath Intrathecal Indura - [id number] Implanted:Qty: 1 on 05/09/2010 at [facility] DEVICE Right: LUMBAR SPINE [employer] 01/18/2012 8709 / N/A / [id number] Cath Intrathecal Indura - [id number] Implanted:Qty: 1 on 05/29/2010 at [facility] DEVICE [employer] 8709 / / Scr Indira Conic 7.3x80 - [id number] Implanted:Qty: 1 on 03/13/2011 at [facility] DEVICE Right: FEMUR DISTAL [employer] 02.207.28 0 / NONE / NONE Plt Lcp Cndl Rt 4.5x170 6h - [id number] Implanted:Qty: 1 on 03/13/2011 at [facility] DEVICE Right: FEMUR DISTAL [employer] 222.656 / NONE / NONE Description:6 hole 170mm rig ht 4.5mm lcp condylar plate Scr Didier Ss Sftp 4.5x40 - [id number] Implanted:Qty: 1 on 03/13/2011 at [facility] DEVICE Left: FEMUR DISTAL [employer] 214.840 / NONE / NONE Scr Didier Ss Sftp 4.5x50 - [id number] Implanted:Qty: 1 on 03/13/2011 at [facility] DEVICE Left: FEMUR DISTAL [employer] 214.850 / NONE / NONE Scr Indira Lk 5.0x80 - [id number] Implanted:Qty: 2 on 03/13/2011 at [facility] DEVICE Left: FEMUR DISTAL [employer] 02.205.08 0 / NONE / NONE Scr Indira Lk 5.0x85 - [id number] Implanted:Qty: 2 on 03/13/2011 at [facility] DEVICE Left: FEMUR DISTAL [employer] 02.205.08 5 / NONE / NONE Scr Lk Sftp T25 5.0x50 - [id number] Implanted:Qty: 1 on 03/13/2011 at [facility] DEVICE Left: FEMUR DISTAL [employer] 212.219 / NONE / NONE Scr Lk Sftp T25 5.0x60 - [id number] Implanted:Qty: 1 on 03/13/2011 at [facility] DEVICE Left: FEMUR DISTAL [employer] 212.221 / NONE / NONE Scr Indira Conic 7.3x85 - [id number] Implanted:Qty: 1 on 03/13/2011 at [facility] DEVICE Left: FEMUR DISTAL [employer] 02.207.28 5 / NONE / NONE Plt Lcp Cndl Lt 4.5x170 6h - [id number] Implanted:Qty: 1 on 03/13/2011 at [facility] DEVICE Left: FEMUR DISTAL [employer] 222.657 / NONE / NONE Description:6 hole 170mmleng th left 4.5mm lcp condylar plate. Scr Didier Sftp 3.5x60 F-Thrd - [id number] Implanted:Qty: 1 on 03/13/2011 at [facility] DEVICE Left: TIBIA PROXIMAL [employer] 204.860 / NONE / NONE Scr Star Lk Sftp 3.5x32 - [id number] Implanted:Qty: 1 on 03/13/2011 at [facility] DEVICE Left: TIBIA PROXIMAL [employer] 212.112 / NONE / NONE Scr Star Lk Sftp 3.5x55 - [id number] Implanted:Qty: 2 on 03/13/2011 at [facility] DEVICE Left: TIBIA PROXIMAL [employer] 212.123 / NONE / NONE Scr Star Lk Sftp 3.5x60 - [id number] Implanted:Qty: 2 on 03/13/2011 at [facility] DEVICE Left: TIBIA PROXIMAL [employer] 212.124 / NONE / NONE Plt Lcp M/Prox Lt 3.5x94 4h - [id number] Implanted:Qty: 1 on 03/13/2011 at [facility] DEVICE Left: TIBIA PROXIMAL [employer] 239.955 / NONE / NONE Scr Didier Ss Sftp 4.5x36 - [id number] Implanted:Qty: 1 on 03/13/2011 at [facility] DEVICE Right: FEMUR DISTAL [employer] 214.836 / NONE / NONE Scr Didier Ss Sftp 4.5x44 - [id number] Implanted:Qty: 1 on 03/13/2011 at [facility] DEVICE Right: FEMUR DISTAL [employer] 214.844 / NONE / NONE Scr Indira Lk 5.0x75 - [id number] Implanted:Qty: 1 on 03/13/2011 at [facility] DEVICE Right: FEMUR DISTAL [employer] 02.205.07 5 / NONE / NONE Scr Indira Lk 5.0x85 - [id number] Implanted:Qty: 2 on 03/13/2011 at [facility] DEVICE Right: FEMUR DISTAL [employer] 02.205.08 5 / NONE / NONE Scr Lk Sftp T25 5.0x44 - [id number] Implanted:Qty: 1 on 03/13/2011 at [facility] DEVICE Right: FEMUR DISTAL [employer] 212.216 / NONE / NONE Scr Lk Sftp T25 5.0x65 - [id number] Implanted:Qty: 1 on 03/13/2011 at [facility] DEVICE Right: FEMUR DISTAL [employer] 212.222 / NONE / NONE Plt Lp T Ti Str 4h - [id number] Implanted:Qty: 3 on 07/28/2014 by Cooper Shelley MD at [facility] DEVICE Right: SKULL [employer] 421.504 / / Scr Matrix Sfdr 4mm - [id number] Implanted:Qty: 6 on 07/28/2014 by Cooper Shelley MD at [facility] DEVICE Right: SKULL [employer] 04.503.10 4.01 / / Lead Linear 3-4 8 Contact 50cm - [id number] Implanted:Qty: 1 on 03/08/2016 by Zelalem Cohen DO at [facility] DEVICE N/A: OTHER-SEE DESCRIPTION [facility] 09/10/2017 [id number] 2500 / / [id number] Description:LUMBAR Lead Linear 3-4 8 Contact 50cm - [id number] Implanted:Qty: 1 on 03/08/2016 by Zelalem Cohen DO at [facility] DEVICE N/A: OTHER-SEE DESCRIPTION [employer] [facility] 09/10/2017 [id number] 2500 / / [id number] Description:LUMBAR Lead Linear 3-4 8 Contact 50cm - [id number] Implanted:Qty: 1 on 03/08/2016 by Zelalem Cohen DO at [facility] DEVICE N/A: OTHER-SEE DESCRIPTION [facility] 09/10/2017 [id number] 2500 / / [id number] Description:LUMBAR Lead Linear 3-4 8 Contact 50cm - [id number] Implanted:Qty: 1 on 03/08/2016 by Zelalem Cohen DO at [facility] DEVICE N/A: OTHER-SEE DESCRIPTION [facility] 09/10/2017 [id number] 2500 / / [id number] Description:LUMBAR Lead Linear 3-4 8 Contact 50cm - [id number] Implanted:Qty: 1 on 05/24/2016 by Zelalem Cohen DO at [facility] DEVICE N/A: SPINE LUMBAR POSTERIOR [employer] [facility] 01/31/2018 [id number] 2500 / [id number] / Lead Linear 3-4 8 Contact 50cm - [id number] Implanted:Qty: 1 on 05/24/2016 by Zelalem Cohen DO at [facility] DEVICE N/A: SPINE LUMBAR POSTERIOR [facility] 04/26/2018 [id number] 2500 / [id number] / Lead Linear 3-4 8 Contact 50cm - [id number] Implanted:Qty: 1 on 05/24/2016 by Zelalem Cohen DO at [facility] DEVICE N/A: SPINE LUMBAR POSTERIOR [facility] 04/26/2018 [id number] 2500 / [id number] / Lead Linear 3-4 8 Contact 50cm - [id number] Implanted:Qty: 1 on 05/24/2016 by Zelalem Cohen DO at [facility] DEVICE N/A: SPINE LUMBAR POSTERIOR [facility] 04/26/2018 [id number] 2500 / [id number] / Generator Pulse Spectra - [id number] Implanted:Qty: 1 on 05/24/2016 by Zelalem Cohen DO at [facility] DEVICE N/A: SPINE LUMBAR POSTERIOR [facility] 05/08/2018 [id number] / [id number] / [id number] Grand Tower Ran - [id number] Implanted:Qty: 1 on 05/24/2016 by Zelalem Cohen DO at [facility] DEVICE N/A: SPINE LUMBAR POSTERIOR [facility] 05/02/2018 [id number] 60 / / [id number] Grand Tower Ran - [id number] Implanted:Qty: 1 on 05/24/2016 by Zelalem Cohen DO at [facility] DEVICE N/A: SPINE LUMBAR POSTERIOR [facility] 02/28/2018 [id number] 60 / / [id number] Procedures Procedure Name Priority Date/Time Associated Diagnosis Comments CREATININE/GFR, WB POC Routine 01/06/2016 12:04 PM BUSINESS PROJECT MANAGER Back pain, 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 HGB A1C Routine 07/29/2014 3:19 AM CDT from Last 3 Months or Most Recently Relevant to Health Maintenance Results * CREATININE/GFR, WB POC (01/06/2016 12:04 PM BUSINESS PROJECT MANAGER) Creat Whole Blood 0.9 0.66 - 1.25 mg/dl [facility] GFR, Estimated >60 >60 ml/min/1.7 3m2 [facility] GFR, Est., If Black >60 >60 ml/min/1.7 3m2 [facility] 01/06/2016 12:0 4 PM BUSINESS PROJECT MANAGER 01/06/2016 12:21 PM BUSINESS PROJECT MANAGER Trae Blair MD LAB_[facility] [phone] * (ABNORMAL) HGB A1C (07/29/2014 3:19 AM CDT) Hgb A1c 6.4(H) 4.3 - 6.1 % [facility] Comment: The usual A1C goal for people with diabetes, age 18-75, is <8.0%. Physicians may recommend a higher or lower goal for specific individuals. 07/29/2014 3:19 AM CDT 07/29/2014 3:22 AM CDT [facility] - 07/29/2014 12:53 PM CDT Performed at [facility], [address] ??[address] [place] Wei PA-C LAB_[address] [address] from Last 3 Months or Most Recently [...] 5:44 PM 07/28/2014 6:50 PM Care Teams Patternmaker Sample Relationship Specialty Start Date End Date Franklin Squires MD 100 [facility] [place] [address] PCP - General Family Practice 03/08/16
--- OUTSIDE RECORDS SUMMARY | 2024-05-11 12:40 | XMS_ITS | Encounter Summary ---
Author Organization [facility] Address [address], [place] [address] Care Team Providers Care Shipbuilding Draftsperson Name Role Phone Franklin Squires MD Primary Care Provider Encounter Details Date Type Department Care Team (Late st Contact Info) Description 06/11/2014 Correspondence [facility] 401 Physical Medicine 401 [facility] [address] May Randle MD [address] [place] [address] [facility] Social History Tobacco Use Types [...] on filedocumented in this encounter Care Teams Shipbuilding Draftsperson Relationship Specialty Start Date End Date Franklin Squires MD 100 [facility] [place] [address] PCP - General Family Practice 03/08/16 documented as of this encounter
--- OUTSIDE RECORDS SUMMARY | 2024-05-11 12:40 | XMS_ITS | Encounter Summary ---
Author Organization [facility] Address [address] [address] Care Team Providers Care Lodging Facilities Attendant Name Role Phone Franklin Squires MD Primary Care Provider Encounter Details Date Type Department Care Team (Late st Contact Info) Description 12/16/[address] [facility] Radiology [address] [place] [address] Radiology, Provider MRI SAFETY SHEET AND COMPATIBILITY [...] Provider - 12/16/2013 12:00 AM CST D COIL WINDER documented in this encounter Plan of Treatment Not on file documented as of this encounter Visit Diagnoses Not on filedocumented in this encounter Care Teams Lodging Facilities Attendant Relationship Specialty Start Date End Date Franklin Squires MD 100 [facility] [place] [address] PCP - General Family Practice 03/08/16 documented as of this encounter
--- OUTSIDE RECORDS SUMMARY | 2024-05-11 12:40 | XMS_ITS | Encounter Summary ---
Author Organization [facility] Address [address] [address] Care Team Providers Care Shift Supervisor Melting Name Role Phone Franklin Squires MD Primary Care Provider [phone] Encounter Details Date Type Department Care Team [...] on filedocumented in this encounter Care Teams Shift Supervisor Melting Relationship Specialty Start Date End Date [facility] MD 100 [facility] [address] PCP - General Family Practice 03/08/16 documented as of this encounter
--- OUTSIDE RECORDS SUMMARY | 2024-05-11 12:40 | XMS_ITS | Encounter Summary ---
Author Organization [facility] Address [address] [address] Care Team Providers Care Traffic Controller Cable Name Role Phone Franklin Squires MD Primary Care Provider [phone] Encounter Details Date Type Department Care Team (Late st Contact Info) Description 07/28/2014 Outside Hospital External to External, Provider No address [address] ER VISIT/TRANSFER Social History Tobacco Use [...] filedocumented in this encounter Care Teams Traffic Controller Cable Relationship Specialty Start Date End Date Franklin Squires MD 100 [facility] [place] [address] PCP - General Family Practice 03/08/16 documented as of this encounter
--- OUTSIDE RECORDS SUMMARY | 2024-05-11 12:40 | XMS_ITS | Encounter Summary ---
Author Organization [facility] [address] [address] Care Team Providers Care Art Gilder Name Role Phone Franklin Squires MD Primary Care Provider [phone] Encounter Details Date Type Department Care Team (Late st Contact Info) Description 10/26/2013 Correspondence [facility] Physical Therapy [address] [place] [address] Trudi Raymundo, PT [address] [place] [address] LETTER OF MEDICAL NECESSITY Social History Tobacco [...] Raymundo, PT - 10/26/2013 12:00 AM CST INED RAILWAY OPERATOR documented in this encounter Plan of Treatment Not on file documented as of this encounter Visit Diagnoses Not on filedocumented in this encounter Care Teams Art Gilder Relationship Specialty Start Date End Date Franklin Squires MD 100 [facility] [address] PCP - General Family Practice 03/08/16 documented as of this encounter
--- OUTSIDE RECORDS SUMMARY | 2024-05-11 12:40 | XMS_ITS | Encounter Summary ---
Author Organization [facility] Address [address], [place] [address] Care Team Providers Care Manager Pulmonary Name Role Phone Franklin Squires MD Primary Care Provider [phone] Encounter Details Date Type Department Care Team [...] filedocumented in this encounter Care Teams Manager Pulmonary Relationship Specialty Start Date End Date Franklin Squires MD 100 [facility] [address] PCP - General Family Practice 03/08/16 documented as of this encounter
--- OUTSIDE RECORDS SUMMARY | 2024-05-11 12:40 | XMS_ITS | Encounter Summary ---
Author Organization [facility] Address [address] [address] Care Team Providers Care Ambulatory Care Coordinator Name Role Phone Franklin Squires MD Primary Care Provider Encounter Details Date Type Department Care Team (Late st Contact Info) Description 12/16/2014 Correspondence External to External, [place] [address] MEDICARE PLAN OF CARE RECERT Social History [...] on filedocumented in this encounter Care Teams Ambulatory Care Coordinator Relationship Specialty Start Date End Date Franklin Squires MD [address] [place] [address] [facility] [place] [address] PCP - General Family Practice 03/08/16 documented as of this encounter
--- OUTSIDE RECORDS SUMMARY | 2024-05-11 12:40 | XMS_ITS | Encounter Summary ---
Author Organization [facility] Address [address], [place] [address] Care Team Providers Care Migration Specialist Name Role Phone Franklin Squires MD Primary Care Provider Encounter Details Date Type Department Care Team (Late st Contact Info) Description 02/09/2016 [facility] 401 NeuroSurgery 401 [facility]. [place], [place] [id number] Jodi Aguila PA-C [address] [place] [address] PATIENT LIFT PRESCRIPTION Social History Tobacco Use [...] on filedocumented in this encounter Care Teams Migration Specialist Relationship Specialty Start Date End Date Franklin Squires MD 100 [facility] [place] [id number] PCP - General Family Practice 03/08/16 documented as of this encounter
--- OUTSIDE RECORDS SUMMARY | 2024-05-11 12:40 | XMS_ITS | Encounter Summary ---
Author Organization [facility] Address [address], [place] [address] Care Team Providers Care Asset Management Analyst Name Role Phone Franklin Squires MD Primary Care Provider Encounter Details Date Type Department Care Team (Late st Contact Info) Description 03/11/2014 [facility] 401 Interventional Pain Management 401 [place] [address] Zelalem Cohen, DO [address] [place] [address] EMPI Social History Tobacco Use Types Packs/Day [...] on filedocumented in this encounter Care Teams Asset Management Analyst Relationship Specialty Start Date End Date Franklin Squires MD 100 [facility] [place] [address] PCP - General Family Practice 03/08/16 documented as of this encounter
--- OUTSIDE RECORDS SUMMARY | 2024-05-11 12:40 | XMS_ITS | Encounter Summary ---
Author Organization [facility] Address [address] [address] Care Team Providers Care Executive Chairman Of The Board Name Role Phone Franklin Squires MD Primary Care Provider [phone] Encounter Details Date Type Department Care Team (Latest Contact Info) Description 12/11/2017 Correspondence Physiatry/Physical Medicine at [facility] 295 [facility] [place] [address] May Randle MD [address] [place] [address] [employer] Social History Tobacco Use [...] filedocumented in this encounter Care Teams Executive Chairman Of The Board Relationship Specialty Start Date End Date Franklin Squires MD [address] [place] [address] [place] [address] PCP - General Family Practice 03/08/16 documented as of this encounter
--- OUTSIDE RECORDS SUMMARY | 2024-05-11 12:40 | XMS_ITS | Encounter Summary ---
Author Organization [facility] Address [address] [address] Care Team Providers Care Chorus Master Name Role Phone Franklin Squires MD Primary Care Provider [phone] Encounter Details Date Type Department Care Team (Late st Contact Info) Description 09/07/2014 Correspondence [facility] Radiology [address] [place] [address] Radiology, Provider MRI SAFETY SHEET AND COMPATIBILITY [...] on filedocumented in this encounter Care Teams Chorus Master Relationship Specialty Start Date End Date Franklin Squires MD [address] [place], [place] [address] [address] PCP - General Family Practice 03/08/16 documented as of this encounter
--- OUTSIDE RECORDS SUMMARY | 2024-05-11 12:40 | XMS_ITS | Encounter Summary ---
Author Organization [facility] [address] [address] Care Team Providers Care Electron Gun Assembler Name Role Phone Franklin Squires MD Primary Care Provider [phone] Encounter Details Date Type Department Care Team (Late st Contact Info) Description 02/05/2014 Correspondence [facility] Physical Therapy [address] [place] [address] Trudi Raymundo, PT [address] [place] [address] LETTER OF MEDICAL NECESSITY FOR A WHEELCHAIR [...] on filedocumented in this encounter Care Teams Electron Gun Assembler Relationship Specialty Start Date End Date Franklin Squires MD 100 [facility] [place] [address] PCP - General Family Practice 03/08/16 documented as of this encounter
--- OUTSIDE RECORDS SUMMARY | 2024-05-11 12:40 | XMS_ITS | Encounter Summary ---
[facility] Organization [facility] Address [address], [place] [address] Care Team Providers Care Drafting Detailer Name Role Phone Franklin Squires MD Primary Care Provider [phone] Encounter Details Date Type Department Care Team (Late st Contact Info) Description 08/20/2014 Outside Hospital [facility] Social History Tobacco Use [...] on filedocumented in this encounter Care Teams Drafting Detailer Relationship Specialty Start Date End Date Franklin Squires MD 100 [facility] [address] PCP - General Family Practice 03/08/16 documented as of this encounter
--- OUTSIDE RECORDS SUMMARY | 2024-05-11 12:40 | XMS_ITS | Encounter Summary ---
Author Organization [facility] Address [address], [place] [address] Care Team Providers Care Footwear Sales Leader Name Role Phone Franklin Squires MD Primary Care Provider Encounter Details Date Type Department Care Team (Late st Contact Info) Description 04/20/[address] [address] Radiology, Provider MRI SAFETY SHEET AND COMPATIBILITY [...] on filedocumented in this encounter Care Teams Footwear Sales Leader Relationship Specialty Start Date End Date Franklin Squires MD 100 [facility] [place] [address] PCP - General Family Practice 03/08/16 documented as of this encounter
--- OUTSIDE RECORDS SUMMARY | 2024-05-11 12:40 | XMS_ITS | Encounter Summary ---
Author Organization [facility] Address [address], [place] [address] Care Team Providers Care Item Processor Name Role Phone Franklin Squires MD Primary Care Provider [phone] Encounter Details Date Type Department Care Team [...] on filedocumented in this encounter Care Teams Item Processor Relationship Specialty Start Date End Date Franklin Squires MD 100 [facility] [address] PCP - General Family Practice 03/08/16 documented as of this encounter
--- OUTSIDE RECORDS SUMMARY | 2024-05-11 12:40 | XMS_ITS | Encounter Summary ---
Author Organization [facility] Address [address] [address] Care Team Providers Care Testing And Regulating Chief Name Role Phone Franklin Squires MD Primary Care Provider [phone] Encounter Details Date Type Department Care Team (Late st Contact Info) Description 12/14/2014 [facility] 401 Physical Medicine 401 [facility] [place] [address] May Randle MD [address] [place] [address] DETAILED PRODUCT DESCRIPTION Social History Tobacco Use [...] this encounter Care Teams Testing And Regulating Chief Relationship Specialty Start Date End Date Franklin Squires MD 100 [facility] [place] [address] PCP - General Family Practice 03/08/16 documented as of this encounter
--- OUTSIDE RECORDS SUMMARY | 2024-05-11 12:40 | XMS_ITS | Encounter Summary ---
Author Organization [facility] Address [address] [address] Care Team Providers Care Interstate Planner Name Role Phone Franklin Squires MD Primary Care Provider Encounter Details Date Type Department Care Team (Late st Contact Info) Description 08/20/2014 Outside [address] External to [facility]/P Social History Tobacco [...] on filedocumented in this encounter Care Teams Interstate Planner Relationship Specialty Start Date End Date Franklin Squires MD [address] [place], [place] [address] [address] PCP - General Family Practice 03/08/16 documented as of this encounter
--- OUTSIDE RECORDS SUMMARY | 2024-05-11 12:40 | XMS_ITS | Encounter Summary ---
Author Organization [facility] Address [address], [place] [address] Care Team Providers Care Gas Plant Repairer Name Role Phone Franklin Squires MD Primary Care Provider Encounter Details Date Type Department Care Team (Late st Contact Info) Description 05/04/2014 [facility] 401 Physical Medicine 401 [place] [address] May Randle MD [address] [place] [address] LETTER OF MEDICAL NECESSITY FOR A WHEELCHAIR [...] in this encounter Care Teams Gas Plant Repairer Relationship Specialty Start Date End Date Franklin Squires MD [address] [facility] [place] [address] PCP - General Family Practice 03/08/16 documented as of this encounter
--- OUTSIDE RECORDS SUMMARY | 2024-05-11 12:40 | XMS_ITS | Encounter Summary ---
Author Organization [facility] Address [address], [place] [address] Care Team Providers Care Lpn Medical Assistant Name Role Phone Franklin Squries MD Primary Care Provider Encounter Details Date Type Department Care Team (Late st Contact Info) Description 11/23/2015 Correspondence External to External, [place] [address] LETTER [facility] Social History Tobacco Use Types [...] filedocumented in this encounter Care Teams Lpn Medical Assistant Relationship Specialty Start Date End Date Franklin Squires MD [address] [place] [address] [place] [address] PCP - General Family Practice 03/08/16 documented as of this encounter
--- OUTSIDE RECORDS SUMMARY | 2024-05-11 12:40 | XMS_ITS | Encounter Summary ---
Author Organization [facility] Address [address], [place] [address] Care Team Providers Care Joggle Press Operator Name Role Phone Franklin Squires MD Primary Care Provider Encounter Details Date Type Department Care Team (Late st Contact Info) Description 08/22/2014 Outside Hospital External to [facility]/C SUMMARY Social History Tobacco Use [...] on filedocumented in this encounter Care Teams Joggle Press Operator Relationship Specialty Start Date End Date Franklin Squires MD 100 [facility] [address] PCP - General Family Practice 03/08/16 documented as of this encounter
--- OUTSIDE RECORDS SUMMARY | 2024-05-11 12:40 | XMS_ITS | Encounter Summary ---
Author Organization [facility] Address [address], [place] [address] Care Team Providers Care Exhibit Designer Name Role Phone Franklin Squires MD Primary Care Provider [phone] Encounter Details Date Type Department Care Team (Late st Contact Info) Description 06/07/2015 Correspondence [facility] Radiology [address] [place] [address] Radiology, Provider MRI SAFETY SHEET AND COMPATIBILITY [...] on filedocumented in this encounter Care Teams Exhibit Designer Relationship Specialty Start Date End Date Franklin Squires MD [address] [place], [place] [address] [address] PCP - General Family Practice 03/08/16 documented as of this encounter
--- OUTSIDE RECORDS SUMMARY | 2024-05-11 12:40 | XMS_ITS | Encounter Summary ---
Author Organization [facility] Address [address], [place] [address] Care Team Providers Care Pinion Sorter Name Role Phone Franklin Squires MD Primary Care Provider [phone] Encounter Details Date Type Department Care Team (Late st Contact Info) Description 07/23/2013 Correspondence [facility] 401 Interventional Pain Management 401 [facility] [place] [address] Zelalem Cohen DO [address] [place] [address] EXPRESS SCRIPT Social History Tobacco Use Types [...] Cohen MD - 07/23/2013 12:00 AM CDT ENGER TRAIN BRAKER documented in this encounter Plan of Treatment Not on file documented as of this encounter Visit Diagnoses Not on filedocumented in this encounter Care Teams Pinion Sorter Relationship Specialty Start Date End Date Franklin Squires MD 100 [facility] [place] [address] PCP - General Family Practice 03/08/16 documented as of this encounter
--- OUTSIDE RECORDS SUMMARY | 2024-05-11 12:40 | XMS_ITS | Encounter Summary ---
Author Organization [facility] Address [address], [place] [address] Care Team Providers Care Frit Coater Name Role Phone Franklin Squires MD Primary Care Provider [phone] Encounter Details Date Type Department Care Team (Latest Contact Info) Description 06/04/2014 Correspondence [facility] 401 Interventional Pain Management 401 [facility] [place] [address] Zelalem Cohen, DO [address] [place] [address] MEDICAID PT INFORMATION EMPI RECOVERY Social History [...] on filedocumented in this encounter Care Teams Frit Coater Relationship Specialty Start Date End Date Franklin Squires MD 100 [facility] [address] PCP - General Family Practice 03/08/16 documented as of this encounter
--- OUTSIDE RECORDS SUMMARY | 2024-05-11 12:41 | XMS_ITS | Encounter Summary ---
Author Organization [facility] Address [address], [place] [address] Care Team Providers Care Document Control Coordinator Name Role Phone Franklin Squires MD Primary Care Provider [phone] Encounter Details Date Type Department Care Team (Late st Contact Info) Description 04/24/2012 Correspondence [facility] Radiology [address] [place] [address] Radiology, Provider MRI SAFETY SHEET AND COMPATIBILITY [...] on filedocumented in this encounter Care Teams Document Control Coordinator Relationship Specialty Start Date End Date Franklin Squires MD 100 [facility] [place] [address] PCP - General Family Practice 03/08/16 documented as of this encounter
== END 2024-05-11 12:37 | disposition home or self-care (01) ==
LOC: WOUND 12:36
PROVIDERS: PCP Family Medicine; Visit Provider Nurse Practitioner Family
DX: L89.324 Pressure ulcer of left buttock, stage 4 (principal); G82.50 Quadriplegia, unspecified
CPT/HCPCS: 11042

== ENCOUNTER 2024-05-18 12:35 | Outpatient (CLI) | payer MEDICARE, OTHER, SELFPAY ==
--- OUTSIDE RECORDS SUMMARY | 2024-05-18 12:37 | XMS_ITS | Encounter Summary ---
Author Name [facility] [place] [facility] [place] Organization [facility] [place] Address [address] [place] [address] Care Team Providers Care Talent Sourcer Name Role Phone SHANTAL HANSON Primary Care Provider Unavailjames mcmahon Insurance Providers: All historical and current Section [...] PART B Jul 12, 2004 PART B [id number] MIKAYLA,F RED PATIENT MEDICARE (WNR) MEDICARE (M) PART A Oct 11, 2002 PART A [id number] [phone] Kasie DEGROOT RED PATIENT Selected Encounter This [...] ALL of a patient's completed or amended [place] Advance and Rescinded Directives. The entries below indicate that a directive exists for the patient, but an actual copy is not included with this document. The data comes from all [place] facilities. Date Advance Directives Provider Source Feb 05, 2023 ADVANCE DIRECTIVE DISCUSSION GUSTAVO ABAD [facility] Encounter Notes: All associated encounter notes This section contains the clinical notes associated to the Encounter. Date/Time Encounter Note(s) Provider Source Oct 28, 2023 02:46 PM ADDENDUM: LOCAL TITLE: Addendum STANDARD TITLE: ADDENDUM DATE OF NOTE: OCT 28, 2023@14:46:05 ENTRY DATE: OCT 28, 2023@14:46:07 AUTHOR: DENNIS RETANA COSIGNER: URGENCY: STATUS: COMPLETED Received this at [facility], forwarding to [facility] nurse as he sees them. Prescription scanned into this note. /el/ DENNIS RETANA LPN Co-Senior Underwriter Signed: 10/28/2023 14:48 Receipt Acknowledged By: 12/24/2023 07:40 /el/ SPENSER YOON [employer] TECHNOLOGY TEACHER --- Original Document --- 10/28/23 PHARMACY NON DE CARE MEDICATIONS: [facility] Outpatient Pharmacy RECEIVED electronic prescription(s) (eRX(s)) from NON-VA Provider:SHANEKA HAHN Date eRX received: Oct not eligible to receive non-VA prescription(s) at this time. Prescription(s) REDIRECTED via FAX to: [X][facility] (Dual) Care [ ]Other: [ ] [facility] (M[facility]to) [ ] [facility] [ ] [facility] [ ] [facility] eRx Reference #:[id number] eRx Prescription Information: eRx Drug: Transparent Mepitel Film eRx Qty: 20 eRx Refills: 2 eRx Days Supply: eRx Sig: As directed, following wound care orders /silvano CASH PHARMACIST Signed: 10/28/2023 08:38 DENNIS RETANA [facility] Oct 28, 2023 08:37 AM PHARMACY NOTE: LOCAL TITLE: PHARMACY NON VA CARE MEDICATIONS STANDARD TITLE: PHARMACY NOTE DATE OF NOTE: OCT 28, 2023@08:37 ENTRY DATE: OCT 28, 2023@08:37:30 AUTHOR: CASA CASH EXP COSIGNER: URGENCY: STATUS: COMPLETED PHARMACY NON VA CARE MEDICATIONS Has ADDENDA [facility] Outpatient Pharmacy RECEIVED electronic prescription(s) (eRX(s)) from NON-VA Provider:SHANEKA HAHN Date eRX received: Oct [place] not eligible to receive non-VA prescription(s) at this time. Prescription(s) REDIRECTED via FAX to: [X][facility] [ ]Other: [ ] [facility] (to) [ ] [facility] [ ] [facility] [ ] [facility] eRx Reference #:[id number] eRx Prescription Information: eRx Drug: Transparent Mepitel Film eRx Qty: 20 eRx Refills: 2 eRx Days Supply: eRx Sig: As directed, following wound care orders /el/ CASA CASH PHARMACIST Signed: 10/28/2023 08:38 10/28/2023 ADDENDUM STATUS: COMPLETED Received this at [facility], forwarding to [facility] nurse as he sees them. Prescription scanned into this note. /el/ DENNIS RETANA LPN Co-Senior Underwriter Signed: 10/28/2023 14:48 Receipt Acknowledged By: * AWAITING SIGNATURE * SPENSER YOON ANDREA L [facility]
--- OUTSIDE RECORDS SUMMARY | 2024-05-18 12:37 | XMS_ITS | Encounter Summary ---
Author Name [facility] [place] Organization [place] Address [address] [place] [address] Care Team Providers Care Linux Engineer Name Role Phone SHANTAL HANSON Primary Care [...] PART B Jul 12, 2004 PART B [id number] [id number] [phone] MIKAYLAF RED PATIENT MEDICARE (WNR) MEDICARE (M) PART A Oct 11, 2002 PART A [id number] [phone] Kasie DEGROOT RED PATIENT Selected Encounter This section includes the information on record at [place] for the Encounter. Date/Time Encounter Type Encounter Description Reason Pro vider Source May 12, 2024 02:14 PM Outpatient Encounter PROS AND SENS AIDS IHE Encounter Template Text not used by [place] Plan of Treatment: Future Appointments (+ 6 months) and Future Tests (+/- 45 days) The Plan of Treatment section includes future care activities for the patient from all [place] [facility] This section includes future appointments and future orders which are active, pending or scheduled. Future Appointments This section includes appointments that were scheduled to occur 6 months from the date of the Encounter, up to a maximum of 20 appointments. The data comes from all [facility]. Appointment Date/Time Appointment Type Appointme nt Facility Name Jun 24, 2024 01:00 PM AMBULATORY - REHAB MEDICIN E [facility] Active, Pending, and Scheduled Orders This section includes a listing of several types of active, pending, and scheduled orders, including clinic medications orders, diagnostic test orders, procedure orders and consult orders; where the start date of the order is 45 days before the date of the Encounter or 45 days after the date of theEncounter. The data comes from all [facility]. Test Date/Time Test Type Test Details Facility Name May 12, 2024 01:59 PM Consult Order SCI/D WHEE LCHAIR SEATING/POSITIONING OUTPT Cons Community Relations Manager's Choice [facility] Advance Directives: All historical and current Section Date Range: From patient's date of to the date document was created. This section includes ALL of a patient's completed or amended [place] Advance and Rescinded Directives. The entries below indicate that a directive exists for the patient, but an actual copy is not included with this document. The data comes from all [facility]. Date Advance Directives Provider Source Feb 05, 2023 ADVANCE DIRECTIVE DISCUSSION GUSTAVO ABAD [facility] Encounter Notes: All associated encounter notes This section contains the clinical notes associated to the Encounter. Date/Time Encounter Note(s) Provider Source May 12, 2024 02:15 PM REPORT OF CONTACT: LOCAL TITLE: PATIENT CONTACT NOTE STANDARD TITLE: REPORT OF CONTACT DATE OF NOTE: MAY 12, 2024@14:15 ENTRY DATE: MAY 12, 2024@14:16:24 AUTHOR: SOLANGE BENOIT EXP COSIGNER: URGENCY: STATUS: COMPLETED Patient contact Patient is requesteing seat lewis size change on pwc. Only Ot can approve seating changes. Ot to nikita. /el/ SOLANGE BENOIT EQUIPMENT CARBIDE POWDER PROCESSOR Signed: 05/12/2024 14:20 Receipt Acknowledged By: 05/12/2024 14:31 /el/ LATISHA BUTT, PT, DPT, NCS, ATP PHYSICAL THERAPIST SOLANGE BENOIT [facility]
--- OUTSIDE RECORDS SUMMARY | 2024-05-18 12:37 | XMS_ITS | Encounter Summary ---
Author Name [facility] [place] Organization [place] Address [address] [place] [address] Care Team Providers Care Rental Coordinator Name Role Phone SHANTAL HANSON Primary Care Provider Unavailabl e Insurance Providers: All historical and current Section [...] PART B Jul 12, 2004 PART B [id number] [phone] Kasie DEGROOT RED PATIENT MEDICARE (WNR) MEDICARE (M) PART A Oct 11, 2002 PART A [id number] PP47 [phone] Kasie DEGROOT RED PATIENT Selected Encounter This [...] this document. The data comes from all [place] facilities. Date Advance Directives Provider Source Feb 05, 2023 ADVANCE DIRECTIVE DISCUSSION GUSTAVO ABAD [facility]
--- OUTSIDE RECORDS SUMMARY | 2024-05-18 12:37 | XMS_ITS | Encounter Summary ---
Author Name [facility] [place] Organization [facility] [place] Address [address] [place] [address] Care Team Providers Care Land Law Examiner Name Role Phone SHANTAL HANSON Primary Care [...] PART B Jul 12, 2004 PART B [id number] [phone] VOEGELE,F RED PATIENT MEDICARE (WNR) MEDICARE (M) PART A Oct 11, 2002 PART A [id number] [id number] [phone] MIKAYLAF RED PATIENT Selected Encounter This section includes the information on record at [place] for the Encounter. Date/Time Encounter Type Encounter [...] of activities due to disability LATISHA BUTT [facility] Jun 11, 2023 09:07 AM SECONDARY Paraplegia, unspecified LATISHA BUTT [facility] Plan of Treatment: Future Appointments (+ 6 months) and Future Tests (+/- 45 days) The Plan of Treatment section includes future care activities for the patient from all [place] [facility]. This section includes future appointments and future orders which are active, pending or scheduled. Future Appointments This section includes appointments that were scheduled to occur 6 months from the date of the Encounter, up to a maximum of 20 appointments. The data comes from all [place] treatment facilities. Appointment Date/Time Appointment Type Appointme nt Facility Name Jun 13, 2023 07:00 AM AMBULATORY - NONE [facility] Advance Directives: All historical and current Section Date Range: From patient's date of to the date document was created. This section includes ALL of a patient's completed or amended [place] Advance and Rescinded Directives. The entries below indicate that a directive exists for the patient, but an actual copy is not included with this document. The data comes from all [place] facilities. Date Advance Directives Provider Source Feb 05, 2023 ADVANCE DIRECTIVE DISCUSSION GUSTAVO ABAD [facility] Encounter Notes: All associated encounter [...] especially when turning. OBJECTIVE: Wheelchair Management: -Equipment: Permobil M3 power wheelchair with HP roho cushion [...] be installed. -Patient transferred out of his PWC via mechanical lift and sling for repairs/modifications [...] installed the entire backrest kit to the [facility] backrest hardware. -Widened the armrests by ~1 on each side to accommodate the new backrest width. -Patient transferred back into the [facility] via mechanical lift and sling for [...] PHYSICAL THERAPIST Signed: 06/11/2023 09:07 LATISHA BUTT [facility]
--- OUTSIDE RECORDS SUMMARY | 2024-05-18 12:37 | XMS_ITS | Continuity of Care Document ---
Author Name [facility] Organization [facility] Care Team Providers Care Director Of Tax Services Name Role Phone [facility] Unavailable Unavailable Problems Combined list of problems from 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 It does not include entries that were removed or entered in error. Problem Status Onset Date Problem Type Date of Resolution Comments Source Abnormal liver function Active Condition [facility] Anemia (S[facility] 681727747) Active Condition [facility] Anxiety ([facility] 14581741) Active Condition [facility] Autonomic dysreflexia Active Condition [facility] Chronic Pain Syndrome (SCT 233410975) Active Condition [facility] Colostomy present Active Condition [facility] Constipation (SCT 49304757) Active Condition [facility] Continuous opioid dependence Active Condition [facility] COPD - Chronic Obstructive Pulmonary Disease (SCT 95836959) Active Condition [facility] Dementia Active Condition [facility] Depression ([facility] 11765431) Active Condition [facility] Diabetes Mellitus Type 2 (SCT 35520555) Active Condition [facility] Ependymoma of spinal cord Active Condition [facility] Hearing Loss (SCT 31026990) Active Condition [facility] History of Deep Vein Thrombosis (SCT 879138137) Active Condition [facility] History of pressure injury Active Condition [facility] HTN - Hypertension (SCT 64939800) Active Condition [facility] Hyperlipidemia (SCT 07814411) Active Condition [facility] Hyponatremia Active Condition [facility] Long-term current use of anticoagulant Active Condition [facility] Neurogenic Bladder (SCT 976742097) Active Condition [facility] Neurogenic bowel Active Condition [facility] Osteoporosis ([facility] 04223738) Active Condition [facility] Paraplegia Active Condition [facility] Spasticity Active Condition [facility] Suprapubic urinary catheter in situ Active Condition [facility] Supraventricular tachycardia Active Condition [facility] Tinnitus ([facility] 23315063) Active Condition [facility] Vitamin D Deficiency ([facility] 7279645) Active Condition [facility] Diagnosis: ICD-10-CM Z73.6 Limitation of activities due to disability Active Diagnosis [facility] Diagnosis: ICD-10-CM G82.20 Paraplegia, unspecified Active Diagnosis [facility] Diagnosis: ICD-10-CM Z43.3 Encounter for attention to colostomy Active Diagnosis [facility] Diagnosis: ICD-10-CM Z71.3 Dietary counseling and surveillance Active Diagnosis [facility] Diagnosis: ICD-10-CM F32.A Depression, unspecified Active Diagnosis [facility] Medications Combined list of outpatient medications from Department of Defense and [facility] Affairs facilities.Medications provided include 1) outpatient medications from the last 15 months, and 2) patient-reported medications. Medication Details Route Status Patient Instructions Prescription Expires Prescription Number Last Dispense Date Ordering Provider Order Date Order Qty Source ACETAMINOPH EN 500MG TAB ACETAMIN OPHEN 500MG TAB Non-VA TAKE TWO TABLETS BY MOUTH THREE TIMES A DAY NEEDED FOR PAIN Feb 05, 2023 Non-VA Document ed by: PIPO BARRETT Document ed at: [facility] ORAL ACTIVE Jagdish BARRETT [address] [facility] AMLODIPINE BESYLATE (AMLODIPINE BESYLATE), 5 MG, TABLET, ORAL, DN[employer] 1000 ea. BOTTLE Active [id number] 4 2023 90 Pharmac y Data Transac tion Service Facilit y AMLODIPINE BESYLATE (amlodipine besylate), 5 MG, TABLET, ORAL, Control4IN PHARMACEU, 1000 ea. BOTTLE Active [id number] 2023 90 Pharmac y Data Transac tion Service Facilit y AMLODIPINE BESYLATE 2.5MG TAB AMLODIPI NE BESYLATE 2.5MG TAB Non-VA TAKE TWO TABLETS BY MOUTH EVERY MORNING Feb 05, 2023 Non-VA Document ed by: PIPO BARRETT Document ed at: [facility] ORAL ACTIVE Jagdish BARRETT [address] [facility] AMOX TR-POTASSIU M CLAVULANATE (AMOXICILLI N/POTASSIUM CLAV), 875-125 MG, TABLET, ORAL, [employer] [place], 20 ea. BOTTLE Active [id number] 2022 14 Pharmac y Data Transac tion Service Facilit y AMOXICILLIN -CLAVULANAT E POTASS (amoxicilli n/potassium clavulanate ), 875-125 MG, TABLET, ORAL, [employer] [place],, 20 ea. BOTTLE Active [id number] 2023 20 Pharmac y Data Transac tion Service Facilit y AMOXICILLIN -CLAVULANAT E POTASS (amoxicilli n/potassium clavulanate ), 875-125 MG, TABLET, ORAL, [employer] [place],, 20 ea. BOTTLE Active [id number] 2023 56 Pharmac y Data Transac tion Service Facilit y ARIPIPRAZOL E (aripiprazo le), 2 MG, TABLET, ORAL, XLCARE PHARMACE, 500 ea. BOTTLE Active [id number] 2023 180 Pharmac y Data Transac tion Service Facilit y ARIPIPRAZOL E (aripiprazo le), 2 MG, TABLET, ORAL, XLCARE PHARMACE, 500 ea. BOTTLE Active [id number] 2023 180 Pharmac y Data Transac tion Service Facilit y ARIPIPRAZOL E TAB ARIPIPRA ZOLE TAB Non-VA TAKE 2MG BY MOUTH TWICE A DAY May 29, 2022 Non-VA Document ed by: SHANTAL HANSON Document ed at: [facility] ORAL ACTIVE Jey HANSON 2021 [facility] ATIVAN (LORAZEPAM) , 0.5 MG, TABLET, ORAL, VALEANT, 100 ea. BOTTLE Active [id number] 2023 120 Pharmac y Data Transac tion Service Facilit y ATORVASTATI N CA 80MG TAB ATORVAST ATIN CA 80MG TAB Non-VA TAKE ONE-HALF TABLET BY MOUTH EVERY DAY May 29, 2022 Non-VA Document ed by: SHANTAL HANSON Document ed at: [facility] ORAL ACTIVE Jey HANSON 2021 [facility] ATORVASTATI N CALCIUM (atorvastat in calcium), 40 MG, TABLET, ORAL, BIOCON PHARMA I, 1000 ea. BOTTLE Active [id number] 2023 90 Pharmac y Data Transac tion Service Facilit y ATORVASTATI N CALCIUM (atorvastat in calcium), 40 MG, TABLET, ORAL, BIOCON PHARMA I, 1000 ea. BOTTLE Active [id number] 2023 90 Pharmac y Data Transac tion Service Facilit y BACLOFEN (baclofen), 20 MG, TABLET, ORAL, MARLEX PHARM., 1000 ea. BOTTLE Active [id number] 2023 540 Pharmac y Data Transac tion Service Facilit y BACLOFEN (baclofen), 20 MG, TABLET, ORAL, [employer]LEX PHARM., 1000 ea. BOTTLE Active [id number] 2023 540 Pharmac y Data Transac tion Service Facilit y BACLOFEN 20MG TAB BACLOFEN 20MG TAB Non-VA TAKE TWO TABLETS BY MOUTH THREE TIMES A DAY Feb 05, 2023 Non-VA Document ed by: PIPO BARRETT Document ed at: [facility] ORAL ACTIVE Jagdish BARRETT 2022 [facility] BUPROPION HCL 150MG 12HR TAB,SA BUPROPIO N HCL 150MG 12HR TAB,SA Non-VA TAKE ONE TABLET BY MOUTH TWICE A DAY May 29, 2022 Non-VA Document ed by: SHANTAL HANSON Document ed at: [facility] ORAL ACTIVE Jey HANSON 2021 [facility] BUPROPION HCL SR (bupropion HCl), 150 MG, TAB SR 12H, ORAL, PAVLE PHARMACEU, 60 ea. BOTTLE Active [id number] 2023 180 Pharmac y Data Transac tion Service Facilit y BUPROPION HCL SR (bupropion HCl), 150 MG, TAB SR 12H, ORAL, PAVEL PHARMACEU, 60 ea. BOTTLE Active [id number] 2023 180 Pharmac y Data Transac tion Service Facilit y CEPHALEXIN 250MG CAP CEPHALEX IN 250MG CAP Non-VA TAKE 1 CAPSULE BY MOUTH EVERY DAY May 29, 2022 Non-VA Document ed by: SHANTAL HANSON Document ed at: [facility] ORAL ACTIVE Jey HANSON 2021 [facility] CHOLECALCIF GILSON 25MCG (1,000UNIT) TAB CHOLECAL CIFEROL 25MCG (1,000UN IT) TAB Non-VA TAKE ONE TABLET BY MOUTH EVERY DAY May 29, 2022 Non-VA Document ed by: SHANTAL HANSON Document ed at: [facility] ORAL ACTIVE Jey HANSON 2021 [facility] CIPROFLOXAC IN HCL (CIPROFLOXA SHAR HCL), 750 MG, TABLET, ORAL, AUROBINDO PHARM, 50 ea. BOTTLE Active [id number] 2023 70 Pharmac y Data Transac tion Service Facilit y DONEPEZIL HCL (DONEPEZIL HCL), 5 MG, TABLET, ORAL, [employer] 1000 ea. BOTTLE Active [id number] 2023 90 Pharmac y Data Transac tion Service Facilit y DONEPEZIL HCL (DONEPEZIL HCL), 5 MG, TABLET, ORAL, [employer] 1000 ea. BOTTLE Cancele d [id number] : 2023 0 Pharmac y Data Transac tion Service Facilit y DONEPEZIL HCL (DONEPEZIL HCL), 5 MG, TABLET, ORAL, [employer] 1000 ea. BOTTLE Active [id number] 2023 90 Pharmac y Data Transac tion Service Facilit y DONEPEZIL HCL 10MG TAB DONEPEZI L HCL 10MG TAB Non-VA TAKE ONE-HALF TABLET BY MOUTH EVERY DAY May 29, 2022 Non-VA Document ed by: SHANTAL HANSON Document ed at: [facility] ORAL ACTIVE Jey HANSON 2021 [facility] DULOXETINE HCL (duloxetine HCl), 60 MG, CAPSULE DR, ORAL, [employer] 1000 ea. BOTTLE Active [id number] 2023 180 Pharmac y Data Transac tion Service Facilit y DULOXETINE HCL (duloxetine HCl), 60 MG, CAPSULE DR, ORAL, [employer] 1000 ea. BOTTLE Active [id number] 2023 180 Pharmac y Data Transac tion Service Facilit y DULOXETINE HCL 30MG CAP,EC DULOXETI NE HCL 30MG CAP,EC Non-VA TAKE 2 CAPSULES BY MOUTH TWICE A DAY May 29, 2022 Non-VA Document ed by: SHANTAL HANSON Document ed at: [facility] ORAL ACTIVE Jey HANSON 2021 [facility] FAMOTIDINE (famotidine ), 20 MG, TABLET, ORAL, [employer]., 1000 ea. BOTTLE Active [id number] 2023 180 Pharmac y Data Transac tion Service Facilit y FAMOTIDINE 20MG TAB FAMOTIDI NE 20MG TAB Non-VA TAKE ONE TABLET BY MOUTH TWICE A DAY May 29, 2022 Non-VA Document ed by: SHANTAL HANSON Document ed at: [facility] ORAL ACTIVE Jey HANSON 2021 [facility] FUROSEMIDE (furosemide ), 40 MG, TABLET, ORAL, [employer], 1000 ea. BOTTLE Active [id number] 2023 180 Pharmac y Data Transac tion Service Facilit y FUROSEMIDE 40MG TAB FUROSEMI DE 40MG TAB Non-VA TAKE ONE TABLET BY MOUTH TWICE A DAY May 29, 2022 Non-VA Document ed by: SHANTAL HANSON Document ed at: [facility] ORAL ACTIVE Jey HANSON 2021 [facility] GABAPENTIN (gabapentin ), 400 MG, CAPSULE, ORAL, [employer] 500 ea. BOTTLE Active [id number] 2023 270 Pharmac y Data Transac tion Service Facilit y GABAPENTIN (gabapentin ), 400 MG, CAPSULE, ORAL, [employer] PHARMAC, 500 ea. BOTTLE Active [id number] 2023 270 Pharmac y Data Transac tion Service Facilit y GABAPENTIN (gabapentin ), 400 MG, CAPSULE, ORAL, XLCARE PHARMACE, 500 ea. BOTTLE Cancele d [id number] : 2023 0 Pharmac y Data Transac tion Service Facilit y GABAPENTIN 400MG CAP GABAPENT IN 400MG CAP Non-VA TAKE 1 CAPSULE BY MOUTH THREE TIMES A DAY May 29, 2022 Non-VA Document ed by: SHANTAL HANSON Document ed at: [facility] ORAL ACTIVE Jey HANSON 2021 [facility] LORAZEPAM (lorazepam) , 0.5 MG, TABLET, ORAL, AUROBINDO PHARM, 500 ea. BOTTLE Active [id number] 2023 120 Pharmac y Data Transac tion Service Facilit y LORAZEPAM (lorazepam) , 0.5 MG, TABLET, ORAL, LEADING PHARMA, 1000 ea. BOTTLE Active [id number] 2023 120 Pharmac y Data Transac tion Service Facilit y LORAZEPAM (lorazepam) , 0.5 MG, TABLET, ORAL, LEADING PHARMA, 1000 ea. BOTTLE Active [id number] 2023 120 Pharmac y Data Transac tion Service Facilit y LORAZEPAM (lorazepam) , 0.5 MG, TABLET, ORAL, LEADING PHARMA, 1000 ea. BOTTLE Active [id number] 2023 120 Pharmac y Data Transac tion Service Facilit y LORAZEPAM (lorazepam) , 0.5 MG, TABLET, ORAL, LEADING PHARMA, 500 ea. BOTTLE Active [id number] 2023 120 Pharmac y Data Transac tion Service Facilit y LORAZEPAM 0.5MG TAB LORAZEPA M 0.5MG TAB Non-VA TAKE ONE TABLET BY MOUTH THREE TIMES A DAY AND TAKE TWO TABLETS BY MOUTH AT BEDTIME Feb 05, 2023 Non-VA Document ed by: PIPO BARRETT Document ed at: [facility] ORAL ACTIVE Jagdish BARRETT 2022 [facility] MILK OF [place] MILK OF [place] Non-VA TAKE 30ML BY MOUTH EVERY DAY NEEDED May 29, 2022 Non-VA Document ed by: SHANTAL HANSON Document ed at: [facility] ORAL ACTIVE Jey HANSON 2021 [facility] MULTIVITAMI NS CAP/TAB MULTIVIT AMINS CAP/TAB Non-VA TAKE ONE TABLET BY MOUTH EVERY DAY May 29, 2022 Non-VA Document ed by: SHANTAL HANSON Document ed at: [facility] ORAL ACTIVE Jey HANSON 2021 [facility] NALOXONE HCL 4MG/SPRAY SOLN,SPRAY, NASAL NALOXONE HCL 4MG/SPRA Y SOLN,SPR AY,NASAL Non-VA SPRAY 1 DOSE IN ONE NOSTRIL DIRECTED PRN Feb 05, 2023 Non-VA Document ed by: PIPO BARRETT Document ed at: [facility] NASAL ACTIVE Jagdish BARRETT [address] [facility] OXYCODONE HCL (OXYCODONE HCL), 10 MG, TABLET, ORAL, [employer] 100 ea. BOTTLE Active [id number] 2023 120 Pharmac y Data Transac tion Service Facilit y OXYCODONE HCL (OXYCODONE HCL), 10 MG, TABLET, ORAL, [employer] 100 ea. BOTTLE Active [id number] 2023 120 Pharmac y Data Transac tion Service Facilit y OXYCODONE HCL (OXYCODONE HCL), 10 MG, TABLET, ORAL, [employer] 100 ea. BOTTLE Active [id number] 2023 120 Pharmac y Data Transac tion Service Facilit y OXYCODONE HCL (OXYCODONE HCL), 10 MG, TABLET, ORAL, [employer] 100 ea. BOTTLE Active [id number] 2023 120 Pharmac y Data Transac tion Service Facilit y OXYCODONE HCL (OXYCODONE HCL), 10 MG, TABLET, ORAL, [employer] 100 ea. BOTTLE Active [id number] 2023 120 Pharmac y Data Transac tion Service Facilit y OXYCODONE HCL (OXYCODONE HCL), 10 MG, TABLET, ORAL, [employer] 100 ea. BOTTLE Active [id number] 2023 120 Pharmac y Data Transac tion Service Facilit y OXYCODONE HCL (OXYCODONE HCL), 10 MG, TABLET, ORAL, [employer] 100 ea. BOTTLE Active [id number] 2022 120 Pharmac y Data Transac tion Service Facilit y OXYCODONE HCL 5MG TAB OXYCODON E HCL 5MG TAB Non-VA TAKE TWO TABLETS BY MOUTH FOUR TIMES A DAY Feb 05, 2023 Non-VA Document ed by: PIPO BARRETT Document ed at[facility] Jagdish BARRETT 2022 [facility] POTASSIUM CHLORIDE (potassium chloride), 10 MEQ, TAB ER PRT, ORAL, XLCARE PHARMACE, 100 ea. BOTTLE Active [id number] 2023 180 Pharmac y Data Transac tion Service Facilit y POTASSIUM CHLORIDE (potassium chloride), 10 MEQ, TAB ER PRT, ORAL, XLC[employer] PHARMACE, 100 ea. BOTTLE Active [id number] 2023 180 Pharmac y Data Transac tion Service Facilit y POTASSIUM CHLORIDE (potassium chloride), 20 MEQ, TAB ER PRT, ORAL, XLCARE PHARMACE, 100 ea. BOTTLE Active [id number] 2023 90 Pharmac y Data Transac tion Service Facilit y POTASSIUM CHLORIDE 20MEQ TAB,SA (DISPERSIBL E) POTASSIU M CHLORIDE 20MEQ TAB,SA (DISPERS IBLE) Non-VA TAKE ONE TABLET BY MOUTH TWICE A DAY May 29, 2022 Non-VA Document ed by: SHANTAL HANSON Document ed at: [facility] ORAL ACTIVE Jey HANSON 2021 [facility] SANTYL (collagenas e Clostridium histolyticu m), 250 UNIT/G, OINT. (G), TOPICAL, WHITLOCK&N/UNI LUIS, 30 g TUBE Cancele d [id number] : 2023 0 Pharmac y Data Transac tion Service Facilit y WARFARIN SODIUM (warfarin sodium), 5 MG, TABLET, ORAL, [employer] 1000 ea. BOTTLE Cancele d [id number] : 2022 0 Pharmac y Data Transac tion Service Facilit y WARFARIN SODIUM (WARFARIN SODIUM), 5 MG, TABLET, ORAL, [employer] [place], 1000 ea. BOTTLE Active [id number] 2023 25 Pharmac y Data Transac tion Service Facilit y WARFARIN SODIUM (WARFARIN SODIUM), 5 MG, TABLET, ORAL, [employer] [place], 1000 ea. BOTTLE Active [id number] 2023 12 Pharmac y Data Transac tion Service Facilit y WARFARIN SODIUM (WARFARIN SODIUM), 5 MG, TABLET, ORAL, [employer] [place], 1000 ea. BOTTLE Active [id number] 2023 40 Pharmac y Data Transac tion Service Facilit y WARFARIN SODIUM (WARFARIN SODIUM), 5 MG, TABLET, ORAL, [employer] [place], 1000 ea. BOTTLE Cancele d [id number] : 2022 0 Pharmac y Data Transac tion Service Facilit y WARFARIN SODIUM (warfarin sodium), 7.5 MG, TABLET, ORAL, [employer] [place], 100 ea. BOTTLE Active [id number] 2023 51 Pharmac y Data Transac tion Service Facilit y WARFARIN SODIUM (warfarin sodium), 7.5 MG, TABLET, ORAL, [employer] [place], 100 ea. BOTTLE Active [id number] 2023 78 Pharmac y Data Transac tion Service Facilit y WARFARIN TAB WARFARIN TAB Non-VA TAKE 5MG BY MOUTH SUN/THUR S AND TAKE 7.5MG BY MOUTH ALL OTHER DAYS Feb 05, 2023 Non-VA Document ed by: PIPO BARRETT Document ed at: [facility] ORAL ACTIVE Jagdish BARRETT [address] [facility] Allergies, Adverse Reactions, Alerts Combined list of allergies from 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 It does not include entries that were removed or entered in error. Substance Category Reaction Severity Reaction type Status Date Reported Comments Source AMOXICILLIN Propensity to adverse reactions to drug (finding) Eruption active 2 [facility] METOLAZONE Propensity to adverse reactions to drug (finding) Itching active 2 [facility] MORPHINE Propensity to adverse reactions to drug (finding) Delirium active 2 [facility] PIPERACILLIN Propensity to adverse reactions to drug (finding) Eruption active 2 [facility] SULFA DRUGS Propensity to adverse reactions to drug (finding) Eruption active 2 [facility] TAZOBACTAM SODIUM Propensity to adverse reactions to drug (finding) Eruption active 2 [facility] Immunizations Combined list of available immunizations from the 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 Immunization Series Date Given Administered By Site Reaction Lot Number CVX Code Drug Complex Director Status Comments Source COVID-19 (Fileblaze), MRNA, LNP-S, BIVALENT, PF, 30 MCG/0.3 ML DOSE [address] [facility] INFLUENZA, ADJUVANTED, QUADRIVALENT, PF [address] [facility] INFLUENZA, UNSPECIFIED FORMULATION 2021 88 complet ed 's recall [facility] TD (ADULT), 5 LF TETANUS TOXOID, PRESERVATIVE FREE, ADSORBED 2021 113 complet ed [facility] INFLUENZA, ADJUVANTED, QUADRIVALENT, PF [address] [facility] INFLUENZA, UNSPECIFIED FORMULATION [address] [facility] COVID-19 (Fileblaze), MRNA, LNP-S, PF, 30 MCG/0.3 ML DOSE [address] [facility] COVID-19 (Fileblaze), MRNA, LNP-S, PF, 30 MCG/0.3 ML DOSE 2 [address] [facility] COVID-19 (PFIZER), MRNA, LNP-S, PF, 30 MCG/0.3 ML DOSE 1 [address] [facility] INFLUENZA, ADJUVANTED, QUADRIVALENT, PF [address] [facility] INFLUENZA, ADJUVANTED, TRIVALENT, PF [address] [facility] INFLUENZA, ADJUVANTED, TRIVALENT, PF [address] [facility] INFLUENZA, HIGH-DOSE, TRIVALENT, PF [address] [facility] INFLUENZA, ADJUVANTED, TRIVALENT, PF [address] [facility] INFLUENZA, HIGH-DOSE, TRIVALENT, PF [address] [facility] ZOSTER LIVE [address] [facility] PNEUMOCOCCAL CONJUGATE PCV 13 2014 133 complet ed [facility] INFLUENZA, HIGH-DOSE, TRIVALENT, PF [address] [facility] INFLUENZA, HIGH-DOSE, TRIVALENT, PF [address] [facility] INFLUENZA, UNSPECIFIED FORMULATION [address] [facility] INFLUENZA, SPLIT VIRUS, TRIVALENT, PRESERVATIVE [address] [facility] ZOSTER LIVE 2012 121 complet ed [facility] INFLUENZA, SPLIT VIRUS, TRIVALENT, PRESERVATIVE [address] [facility] INFLUENZA, SPLIT VIRUS, TRIVALENT, PF [address] [facility] PNEUMOCOCCAL POLYSACCHARID E PPV23 [address] [facility] TDAP 2010 115 complet ed [facility] INFLUENZA, SPLIT VIRUS, TRIVALENT, PRESERVATIVE 2009 141 complet [facility] NOVEL INFLUENZA-H1N 1-09, ALL FORMULATIONS [address] [facility] INFLUENZA, SPLIT VIRUS, TRIVALENT, PF [address] [facility] PNEUMOCOCCAL POLYSACCHARID E PPV23 [address] [facility] INFLUENZA, SPLIT VIRUS, TRIVALENT, PRESERVATIVE [address] [facility] INFLUENZA, SPLIT VIRUS, TRIVALENT, PRESERVATIVE [address] [facility] INFLUENZA, SPLIT VIRUS, TRIVALENT, PRESERVATIVE [address] [facility] INFLUENZA, SPLIT VIRUS, TRIVALENT, PRESERVATIVE [address] [facility] PNEUMOCOCCAL POLYSACCHARID E PPV23 [address] [facility] INFLUENZA, SPLIT VIRUS, TRIVALENT, PRESERVATIVE [address] [facility] Results Combined list of recent chemistry, [...] Feb 05, 2023 03:10 PM Reporting Lab: [facility] [address] Performing Lab: [facility] [address] [place] [facility] CYSTATIN C WITH EGFR CYSTATIN C AND GLOMERULAR FILTRATION RATE BY CYSTATIN C-BASED FORMULA PANEL - SERUM OR PLASMA 53 60 02/13 L Specimen Type: PLASMA No comment entered. Ordering Provider: ANKUSH BOWMAN Report Released Date/Time: Feb 05, 2023 03:10 PM Reporting Lab: [facility] [address] Performing Lab: [facility] [address] [place] [facility] BASIC METABOLI C PANEL+MG CREATININE [MASS/VOLU ME] IN SERUM OR PLASMA 0.7 mg/dL 0.7 - 1.2 02/13 Specimen Type: PLASMA No comment entered. Ordering Provider: ANKUSH BOWMAN Report Released Date/Time: Feb 05, 2023 03:10 PM Reporting Lab: [facility] [address] Performing Lab: [facility] [address] [place] [facility] BASIC METABOLI C PANEL+MG UREA NITROGEN [MASS/VOLU ME] IN SERUM OR PLASMA 15 mg/dL 8 - 02/13 Specimen Type: PLASMA No comment entered. Ordering Provider: ANKUSH BOWMAN Report Released Date/Time: Feb 05, 2023 03:10 PM Reporting Lab: [facility] [address] Performing Lab: [facility] [address] [place] [facility] BASIC METABOLI C PANEL+MG GLUCOSE [MASS/VOLU ME] IN SERUM OR PLASMA 140 mg/dL 70 - 100 02/13 H Specimen Type: PLASMA No comment entered. Ordering Provider: ANKUSH BOWMAN Report Released Date/Time: Feb 05, 2023 03:10 PM Reporting Lab: [facility] [address] Performing Lab: [facility] [address] [place] [facility] BASIC METABOLI C PANEL+MG SODIUM [MOLES/VOL UME] IN SERUM OR PLASMA 135 mmol/L 136 - 145 02/13 L Specimen Type: PLASMA No comment entered. Ordering Provider: ANKUSH BOWMAN Report Released Date/Time: Feb 05, 2023 03:10 PM Reporting Lab: [facility] [address] Performing Lab: [facility] [address] [place] [facility] BASIC METABOLI C PANEL+MG POTASSIUM [MOLES/VOL UME] IN SERUM OR PLASMA 4.0 mmol/L 3.5 - 5.1 02/13 Specimen Type: PLASMA No comment entered. Ordering Provider: ANKUSH BOWMAN Report Released Date/Time: Feb 05, 2023 03:10 PM Reporting Lab: [facility] [address] Performing Lab: [facility] [address] [place] [facility] BASIC METABOLI C PANEL+MG CHLORIDE [MOLES/VOL UME] IN SERUM OR PLASMA 99 mmol/L 98 - 107 02/13 Specimen Type: PLASMA No comment entered. Ordering Provider: ANKUSH BOWMAN Report Released Date/Time: Feb 05, 2023 03:10 PM Reporting Lab: [facility] [address] Performing Lab: [facility] [address] [place] [facility] BASIC METABOLI C PANEL+MG CARBON DIOXIDE, TOTAL [MOLES/VOL UME] IN SERUM OR PLASMA 29 mmol/L 22 - 29 02/13 Specimen Type: PLASMA No comment entered. Ordering Provider: ANKUSH BOWMAN Report Released Date/Time: Feb 05, 2023 03:10 PM Reporting Lab: [facility] [id number] Performing Lab: [facility] [address] [place] [facility] BASIC METABOLI C PANEL+MG CALCIUM [MASS/VOLU ME] IN SERUM OR PLASMA 9.2 mg/dL 8.4 - 10.2 02/13 Specimen Type: PLASMA No comment entered. Ordering Provider: ANKUSH BOWMAN Report Released Date/Time: Feb 05, 2023 03:10 PM Reporting Lab: [facility] [id number] Performing Lab: [facility] [id number] [place] [facility] BASIC METABOLI C PANEL+MG MAGNESIUM [MASS/VOLU ME] IN SERUM OR PLASMA 2.0 mg/dL 1.6 - 2.6 02/13 Specimen Type: PLASMA No comment entered. Ordering Provider: ANKUSH BOWMAN Report Released Date/Time: Feb 05, 2023 03:10 PM Reporting Lab: [facility] [address] Performing Lab: [facility] [address] [facility] BASIC METABOLI C PANEL+MG ANION GAP IN SERUM OR PLASMA 7 mmol/L 5 - 15 02/13 Specimen Type: PLASMA No comment entered. Ordering Provider: ANKUSH BOWMAN Report Released Date/Time: Feb 05, 2023 03:10 PM Reporting Lab: [facility] [address] Performing Lab: [facility] [address] [place] [facility] BASIC METABOLI C PANEL+MG GLOMERULAR FILTRATION RATE/1.73 SQ M.PREDICTE D [VOLUME RATE/AREA] IN SERUM, PLASMA OR BLOOD BY CREATININE -BASED FORMULA (CKD-EPI) >90 60 02/13 Specimen Type: PLASMA No comment entered. Ordering Provider: ANKUSH BOWMAN Report Released Date/Time: Feb 05, 2023 03:10 PM Reporting Lab: [facility] [address] Performing Lab: [facility] [address] [place] URINALYS IS COLOR OF URINE YELLOW 10/08 Specimen Type: URINE No comment entered. Ordering Provider: ANKUSH BOWMAN Report Released Date/Time: Sep 24, 2022 01:55 PM Reporting Lab: [facility] [address] Performing Lab: [facility] [address] [place] URINALYS IS SPECIFIC GRAVITY OF URINE 1.023 1.003 - 1.035 10/08 Specimen Type: URINE No comment entered. Ordering Provider: ANKUSH BOWMAN Report Released Date/Time: Sep 24, 2022 01:55 PM Reporting Lab: [facility] [address] Performing Lab: [facility] [address] [place] URINALYS IS BILIRUBIN. TOTAL [PRESENCE] IN URINE BY TEST STRIP NEGATIVE 10/08 Specimen Type: URINE No comment entered. Ordering Provider: ANKUSH BOWMAN Report Released Date/Time: Sep 24, 2022 01:55 PM Reporting Lab: [facility] [address] Performing Lab: [facility] [address] [facility] URINALYS IS KETONES [MASS/VOLU ME] IN URINE BY TEST STRIP NEGATIVE 10/08 Specimen Type: URINE No comment entered. Ordering Provider: ANKUSH BOWMAN Report Released Date/Time: Sep 24, 2022 01:55 PM Reporting Lab: [facility] [address] Performing Lab: [facility] [address] [facility] URINALYS IS GLUCOSE [MASS/VOLU ME] IN URINE BY TEST STRIP NEGATIVE mg/dL <30 - 30 10/08 Specimen Type: URINE No comment entered. Ordering Provider: ANKUSH BOWMAN Report Released Date/Time: Sep 24, 2022 01:55 PM Reporting Lab: [facility] [address] Performing Lab: [facility] [address] [facility] URINALYS IS PROTEIN [MASS/VOLU ME] IN URINE BY TEST STRIP 30 mg/dL <20 - 20 10/08 Specimen Type: URINE No comment entered. Ordering Provider: ANKUSH BOWMAN Report Released Date/Time: Sep 24, 2022 01:55 PM Reporting Lab: [facility] [address] Performing Lab: [facility] [address] [facility] URINALYS IS PH OF URINE BY TEST STRIP 7.5 5.0 - 8.0 10/08 Specimen Type: URINE No comment entered. Ordering Provider: ANKUSH BOWMAN Report Released Date/Time: Sep 24, 2022 01:55 PM Reporting Lab: [facility] [address] Performing Lab: [facility] [address] [facility] URINALYS IS LEUKOCYTES [#/AREA] IN URINE SEDIMENT BY MICROSCOPY HIGH POWER FIELD >180/[HP F] 0 - 7 10/08 H Specimen Type: URINE No comment entered. Ordering Provider: ANKUSH BOWMAN Report Released Date/Time: Sep 24, 2022 01:55 PM Reporting Lab: [facility] [address] Performing Lab: [facility] [address] [facility] URINALYS IS BACTERIA [PRESENCE] IN URINE SEDIMENT BY LIGHT MICROSCOPY MANY 10/08 Specimen Type: URINE No comment entered. Ordering Provider: ANKUSH BOWMAN Report Released Date/Time: Sep 24, 2022 01:55 PM Reporting Lab: [facility] [address] Performing Lab: [facility] [address] [facility] URINALYS IS ERYTHROCYT ES [#/AREA] IN URINE SEDIMENT BY MICROSCOPY HIGH POWER FIELD 33 /[HPF] 0 - 3 10/08 H Specimen Type: URINE No comment entered. Ordering Provider: ANKUSH BOWMAN Report Released Date/Time: Sep 24, 2022 01:55 PM Reporting Lab: [facility] [address] Performing Lab: [facility] [address] [facility] URINALYS IS APPEARANCE OF URINE EX.TURBI D 10/08 Specimen Type: URINE No comment entered. Ordering Provider: ANKUSH BOWMAN Report Released Date/Time: Sep 24, 2022 01:55 PM Reporting Lab: [facility] [address] Performing Lab: [facility] [address] [facility] URINALYS IS EPITHELIAL CELLS.SQUA MOUS [#/AREA] IN URINE SEDIMENT BY MICROSCOPY HIGH POWER FIELD 1 /[HPF] 10/08 Specimen Type: URINE No comment entered. Ordering Provider: ANKUSH BOWMAN Report Released Date/Time: Sep 24, 2022 01:55 PM Reporting Lab: [facility] [address] Performing Lab: [facility] [address] [facility] URINALYS IS HEMOGLOBIN [PRESENCE] IN URINE BY TEST STRIP 1+ 10/08 Specimen Type: URINE No comment entered. Ordering Provider: ANKUSH BOWMAN Report Released Date/Time: Sep 24, 2022 01:55 PM Reporting Lab: [facility] [address] Performing Lab: [facility] [address] [facility] URINALYS IS NITRITE [PRESENCE] IN URINE BY TEST STRIP NEGATIVE 10/08 Specimen Type: URINE No comment entered. Ordering Provider: ANKUSH BOWMAN Report Released Date/Time: Sep 24, 2022 01:55 PM Reporting Lab: [facility] [address] Performing Lab: [facility] [address] [facility] URINALYS IS LEUKOCYTE CLUMPS [#/VOLUME] IN URINE BY AUTOMATED COUNT PRESENT 10/08 Specimen Type: URINE No comment entered. Ordering Provider: ANKUSH BOWMAN Report Released Date/Time: Sep 24, 2022 01:55 PM Reporting Lab: [facility] [address] Performing Lab: [facility] [address] [facility] URINALYS IS LEUKOCYTE ESTERASE [PRESENCE] IN URINE BY TEST STRIP 500 10/08 Specimen Type: URINE No comment entered. Ordering Provider: ANKSUH BOWMAN Report Released Date/Time: Sep 24, 2022 01:55 PM Reporting Lab: [facility] [address] Performing Lab: [facility] [address] [facility] ALBUMIN ALBUMIN [MASS/VOLU ME] IN SERUM OR PLASMA 4.2 g/dL 3.5 - 5.2 10/08 Specimen Type: PLASMA No comment entered. Ordering Provider: ANKUSH BOWMAN Report Released Date/Time: Sep 24, 2022 01:55 PM Reporting Lab: [facility] [address] Performing Lab: [facility] [address] [facility] PRE-ALBU MIN PREALBUMIN [MASS/VOLU ME] IN SERUM OR PLASMA 28.4 mg/dL 14.0 - 45.0 10/08 Specimen Type: SERUM No comment entered. Ordering Provider: ANKUSH BOWMAN Report Released Date/Time: Sep 24, 2022 01:55 PM Reporting Lab: [facility] [address] Performing Lab: [facility] [address] [facility] COMPREHE NSIVE METABOLI C PANEL+MG CREATININE [MASS/VOLU ME] IN SERUM OR PLASMA 0.7 mg/dL 0.7 - 1.2 10/08 Specimen Type: PLASMA No comment entered. Ordering Provider: ANKUSH BOWMAN Report Released Date/Time: Sep 24, 2022 01:55 PM Reporting Lab: [facility] [address] Performing Lab: [facility] [address] [facility] COMPREHE NSIVE METABOLI C PANEL+MG UREA NITROGEN [MASS/VOLU ME] IN SERUM OR PLASMA 16 mg/dL 8 - 26 10/08 Specimen Type: PLASMA No comment entered. Ordering Provider: ANKUSH BOWMAN Report Released Date/Time: Sep 24, 2022 01:55 PM Reporting Lab: [facility] [address] Performing Lab: [facility] [address] [place] COMPREHE NSIVE METABOLI C PANEL+MG GLUCOSE [MASS/VOLU ME] IN SERUM OR PLASMA 94 mg/dL 70 - 100 10/08 Specimen Type: PLASMA No comment entered. Ordering Provider: ANKUSH BOWMAN Report Released Date/Time: Sep 24, 2022 01:55 PM Reporting Lab: [facility] [address] Performing Lab: [facility] [address] [place] COMPREHE NSIVE METABOLI C PANEL+MG SODIUM [MOLES/VOL UME] IN SERUM OR PLASMA 138 mmol/L 136 - 145 10/08 Specimen Type: PLASMA No comment entered. Ordering Provider: ANKUSH BOWMAN Report Released Date/Time: Sep 24, 2022 01:55 PM Reporting Lab: [facility] [address] Performing Lab: [facility] [address] [place] COMPREHE NSIVE METABOLI C PANEL+MG POTASSIUM [MOLES/VOL UME] IN SERUM OR PLASMA 3.9 mmol/L 3.5 - 5.1 10/08 Specimen Type: PLASMA No comment entered. Ordering Provider: ANKUSH BOWMAN Report Released Date/Time: Sep 24, 2022 01:55 PM Reporting Lab: [facility] [address] Performing Lab: [facility] [address] [facility] COMPREHE NSIVE METABOLI C PANEL+MG CHLORIDE [MOLES/VOL UME] IN SERUM OR PLASMA 101 mmol/L 98 - 107 10/08 Specimen Type: PLASMA No comment entered. Ordering Provider: ANKUSH BOWMAN Report Released Date/Time: Sep 24, 2022 01:55 PM Reporting Lab: [facility] [address] Performing Lab: [facility] [address] [place] COMPREHE NSIVE METABOLI C PANEL+MG CARBON DIOXIDE, TOTAL [MOLES/VOL UME] IN SERUM OR PLASMA 28 mmol/L 22 - 29 10/08 Specimen Type: PLASMA No comment entered. Ordering Provider: ANKUSH BOWMAN Report Released Date/Time: Sep 24, 2022 01:55 PM Reporting Lab: [facility] [address] Performing Lab: [facility] [address] [place] COMPREHE NSIVE METABOLI C PANEL+MG CALCIUM [MASS/VOLU ME] IN SERUM OR PLASMA 9.7 mg/dL 8.4 - 10.2 10/08 Specimen Type: PLASMA No comment entered. Ordering Provider: ANKUSH BOWMAN Report Released Date/Time: Sep 24, 2022 01:55 PM Reporting Lab: [facility] [address] Performing Lab: [facility] [address] [place] COMPREHE NSIVE METABOLI C PANEL+MG PROTEIN [MASS/VOLU ME] IN SERUM OR PLASMA 7.6 g/dL 6.0 - 8.3 10/08 Specimen Type: PLASMA No comment entered. Ordering Provider: ANKUSH BOWMAN Report Released Date/Time: Sep 24, 2022 01:55 PM Reporting Lab: [facility] [address] Performing Lab: [facility] [address] [facility] COMPREHE NSIVE METABOLI C PANEL+MG ALBUMIN [MASS/VOLU ME] IN SERUM OR PLASMA 4.2 g/dL 3.5 - 5.2 10/08 Specimen Type: PLASMA No comment entered. Ordering Provider: ANKUSH BOWMAN Report Released Date/Time: Sep 24, 2022 01:55 PM Reporting Lab: [facility] [address] Performing Lab: [facility] [address] [place] COMPREHE NSIVE METABOLI C PANEL+MG BILIRUBIN. TOTAL [MASS/VOLU ME] IN SERUM OR PLASMA 0.6 mg/dL 0.2 - 1.2 10/08 Specimen Type: PLASMA No comment entered. Ordering Provider: ANKUSH BOWMAN Report Released Date/Time: Sep 24, 2022 01:55 PM Reporting Lab: [facility] [address] Performing Lab: [facility] [address] [facility] COMPREHE NSIVE METABOLI C PANEL+MG MAGNESIUM [MASS/VOLU ME] IN SERUM OR PLASMA 2.1 mg/dL 1.6 - 2.6 10/08 Specimen Type: PLASMA No comment entered. Ordering Provider: ANKUSH BOWMAN Report Released Date/Time: Sep 24, 2022 01:55 PM Reporting Lab: [facility] [address] Performing Lab: [facility] [address] [place] COMPREHE NSIVE METABOLI C PANEL+MG ANION GAP IN SERUM OR PLASMA 9 mmol/L 5 - 15 10/08 Specimen Type: PLASMA No comment entered. Ordering Provider: ANKUSH BOWMAN Report Released Date/Time: Sep 24, 2022 01:55 PM Reporting Lab: [facility] [address] Performing Lab: [facility] [address] [facility] COMPREHE NSIVE METABOLI C PANEL+MG ALKALINE PHOSPHATAS E [ENZYMATIC ACTIVITY/V OLUME] IN SERUM OR PLASMA 96 U/L 40 - 150 10/08 Specimen Type: PLASMA No comment entered. Ordering Provider: ANKUSH BOWMAN Report Released Date/Time: Sep 24, 2022 01:55 PM Reporting Lab: [facility] [address] Performing Lab: [facility] [address] [facility] COMPREHE NSIVE METABOLI C PANEL+MG ALANINE AMINOTRANS FERASE [ENZYMATIC ACTIVITY/V OLUME] IN SERUM OR PLASMA 29 U/L <55 - 55 10/08 Specimen Type: PLASMA No comment entered. Ordering Provider: ANKUSH BOWMAN Report Released Date/Time: Sep 24, 2022 01:55 PM Reporting Lab: [facility] [address] Performing Lab: [facility] [address] [place] COMPREHE NSIVE METABOLI C PANEL+MG ASPARTATE AMINOTRANS FERASE [ENZYMATIC ACTIVITY/V OLUME] IN SERUM OR PLASMA 22 U/L <34 - 34 10/08 Specimen Type: PLASMA No comment entered. Ordering Provider: ANKUSH BOWMAN Report Released Date/Time: Sep 24, 2022 01:55 PM Reporting Lab: [facility] [address] Performing Lab: [facility] [address] [place] COMPREHE NSIVE METABOLI C PANEL+MG GLOMERULAR FILTRATION RATE/1.73 SQ M.PREDICTE D [VOLUME RATE/AREA] IN SERUM, PLASMA OR BLOOD BY CREATININE -BASED FORMULA (CKD-EPI) >90 60 10/08 Specimen Type: PLASMA No comment entered. Ordering Provider: ANKUSH BOWMAN Report Released Date/Time: Sep 24, 2022 01:55 PM Reporting Lab: [facility] [address] Performing Lab: [facility] [address] [place] CBC & DIFF LEUKOCYTES [#/VOLUME] IN BLOOD BY AUTOMATED COUNT 7.32 10*3/uL 4.0 - 11.0 10/08 Specimen Type: BLOOD Comment: Automated Differentia l Performed Ordering Provider: ANKUSH BOWMAN Report Released Date/Time: Sep 24, 2022 01:55 PM Reporting Lab: [facility] [address] Performing Lab: [facility] [address] [place] CBC & DIFF ERYTHROCYT ES [#/VOLUME] IN BLOOD BY AUTOMATED COUNT 4.80 10*6/uL 4.6 - 6.2 10/08 Specimen Type: BLOOD Comment: Automated Differentia l Performed Ordering Provider: ANKUSH BOWMAN Report Released Date/Time: Sep 24, 2022 01:55 PM Reporting Lab: [facility] [address] Performing Lab: [facility] [address] [place] CBC & DIFF HEMOGLOBIN [MASS/VOLU ME] IN BLOOD 14.7 g/dL 13.5 - 17.9 10/08 Specimen Type: BLOOD Comment: Automated Differentia l Performed Ordering Provider: ANKUSH BOWMAN Report Released Date/Time: Sep 24, 2022 01:55 PM Reporting Lab: [facility] [address] Performing Lab: [facility] [address] [place] CBC & DIFF HEMATOCRIT [VOLUME FRACTION] OF BLOOD BY AUTOMATED COUNT 44.2 41 - 54 10/08 Specimen Type: BLOOD Comment: Automated Differentia l Performed Ordering Provider: ANKUSH BOWMAN Report Released Date/Time: Sep 24, 2022 01:55 PM Reporting Lab: [facility] [address] Performing Lab: [facility] [address] [place] CBC & DIFF MCV [ENTITIC VOLUME] BY AUTOMATED COUNT 92.1 fL 80 - 100 10/08 Specimen Type: BLOOD Comment: Automated Differentia l Performed Ordering Provider: ANKUSH BOWMAN Report Released Date/Time: Sep 24, 2022 01:55 PM Reporting Lab: [facility] [address] Performing Lab: [facility] [address] [place] [facility] CBC & DIFF MCH [ENTITIC MASS] BY AUTOMATED COUNT 30.6 pg 27 - 33 10/08 Specimen Type: BLOOD Comment: Automated Differentia l Performed Ordering Provider: ANKUSH BOWMAN Report Released Date/Time: Sep 24, 2022 01:55 PM Reporting Lab: [facility] [address] Performing Lab: [facility] [address] [place] [facility] CBC & DIFF MCHC [MASS/VOLU ME] BY AUTOMATED COUNT 33.3 g/dL 32.0 - 37.5 10/08 Specimen Type: BLOOD Comment: Automated Differentia l Performed Ordering Provider: ANKUSH BOWMAN Report Released Date/Time: Sep 24, 2022 01:55 PM Reporting Lab: [facility] [address] Performing Lab: [facility] [address] [place] CBC & DIFF PLATELETS [#/VOLUME] IN BLOOD BY AUTOMATED COUNT 144 10*3/uL 150 - 400 10/08 L Specimen Type: BLOOD Comment: Automated Differentia l Performed Ordering Provider: ANKUHS BOWMAN Report Released Date/Time: Sep 24, 2022 01:55 PM Reporting Lab: [facility] [address] Performing Lab: [facility] [address] [place] CBC & DIFF PLATELET MEAN VOLUME [ENTITIC VOLUME] IN BLOOD BY AUTOMATED COUNT 10.8 fL 7.4 - 10.4 10/08 H Specimen Type: BLOOD Comment: Automated Differentia l Performed Ordering Provider: ANKUSH BOWMAN Report Released Date/Time: Sep 24, 2022 01:55 PM Reporting Lab: [facility] [address] Performing Lab: [facility] [address] [place] CBC & DIFF NEUTROPHIL S/100 LEUKOCYTES IN BLOOD BY MANUAL COUNT 55.5 10/08 Specimen Type: BLOOD Comment: Automated Differentia l Performed Ordering Provider: ANKUSH BOWMAN Report Released Date/Time: Sep 24, 2022 01:55 PM Reporting Lab: [facility] [address] Performing Lab: [facility] [address] [place] CBC & DIFF LYMPHOCYTE S/100 LEUKOCYTES IN BLOOD BY MANUAL COUNT 31.4 10/08 Specimen Type: BLOOD Comment: Automated Differentia l Performed Ordering Provider: ANKUSH BOWMAN Report Released Date/Time: Sep 24, 2022 01:55 PM Reporting Lab: [facility] [address] Performing Lab: [facility] [address] [place] CBC & DIFF MONOCYTES/ 100 LEUKOCYTES IN BLOOD BY AUTOMATED COUNT 10.2 10/08 Specimen Type: BLOOD Comment: Automated Differentia l Performed Ordering Provider: ANKUSH BOWMAN Report Released Date/Time: Sep 24, 2022 01:55 PM Reporting Lab: [facility] [address] Performing Lab: [facility] [address] [place] CBC & DIFF EOSINOPHIL S/100 LEUKOCYTES IN BLOOD BY AUTOMATED COUNT 2.2 10/08 Specimen Type: BLOOD Comment: Automated Differentia l Performed Ordering Provider: ANKUSH BOWMAN Report Released Date/Time: Sep 24, 2022 01:55 PM Reporting Lab: [facility] [address] Performing Lab: [facility] [address] [facility] CBC & DIFF BASOPHILS/ 100 LEUKOCYTES IN BLOOD BY MANUAL COUNT 0.4 10/08 Specimen Type: BLOOD Comment: Automated Differentia l Performed Ordering Provider: ANKUSH BOWMAN Report Released Date/Time: Sep 24, 2022 01:55 PM Reporting Lab: [facility] [address] Performing Lab: [facility] [address] [facility] CBC & DIFF ERYTHROCYT E DISTRIBUTI ON WIDTH [RATIO] BY AUTOMATED COUNT 15.9 11.5 - 14.5 10/08 H Specimen Type: BLOOD Comment: Automated Differentia l Performed Ordering Provider: ANKUSH BOWMAN Report Released Date/Time: Sep 24, 2022 01:55 PM Reporting Lab: [facility] [address] Performing Lab: [facility] [address] [facility] CBC & DIFF LYMPHOCYTE S [#/VOLUME] IN BLOOD BY AUTOMATED COUNT 2.30 10*3/uL 1.0 - 4.0 10/08 Specimen Type: BLOOD Comment: Automated Differentia l Performed Ordering Provider: ANKUSH BOWMAN Report Released Date/Time: Sep 24, 2022 01:55 PM Reporting Lab: [facility] [address] Performing Lab: [facility] [address] [facility] CBC & DIFF MONOCYTES [#/VOLUME] IN BLOOD BY AUTOMATED COUNT 0.75 10*3/uL 0.1 - 1.0 10/08 Specimen Type: BLOOD Comment: Automated Differentia l Performed Ordering Provider: ANKUSH BOWMAN Report Released Date/Time: Sep 24, 2022 01:55 PM Reporting Lab: [facility] [address] Performing Lab: [facility] [address] [facility] CBC & DIFF NEUTROPHIL S [#/VOLUME] IN BLOOD BY AUTOMATED COUNT 4.06 10*3/uL 2.0 - 7.7 10/08 Specimen Type: BLOOD Comment: Automated Differentia l Performed Ordering Provider: ANKUSH BOWMAN Report Released Date/Time: Sep 24, 2022 01:55 PM Reporting Lab: [facility] [address] Performing Lab: [facility] [address] [facility] CBC & DIFF EOSINOPHIL S [#/VOLUME] IN BLOOD BY AUTOMATED COUNT 0.16 10*3/uL 0 - 0.5 10/08 Specimen Type: BLOOD Comment: Automated Differentia l Performed Ordering Provider: ANKUSH BOWMAN Report Released Date/Time: Sep 24, 2022 01:55 PM Reporting Lab: [facility] [address] Performing Lab: [facility] [address] [facility] CBC & DIFF BASOPHILS [#/VOLUME] IN BLOOD BY AUTOMATED COUNT 0.03 10*3/uL 0 - 0.2 10/08 Specimen Type: BLOOD Comment: Automated Differentia l Performed Ordering Provider: ANKUSH BOWMAN Report Released Date/Time: Sep 24, 2022 01:55 PM Reporting Lab: [facility] [address] Performing Lab: [facility] [address] [facility] CBC & DIFF IG(META,MY MALACHI,PRO) 0.3 10/08 Specimen Type: BLOOD Comment: Automated Differentia l Performed Ordering Provider: ANKUSH BOWMAN Report Released Date/Time: Sep 24, 2022 01:55 PM Reporting Lab: [facility] [address] Performing Lab: [facility] [address] [facility] CBC & DIFF IMMATURE GRANULOCYT ES [PRESENCE] IN BLOOD BY AUTOMATED COUNT 0.02 10*3/uL 0 - 0.1 10/08 Specimen Type: BLOOD Comment: Automated Differentia l Performed Ordering Provider: ANKUSH BOWMAN Report Released Date/Time: Sep 24, 2022 01:55 PM Reporting Lab: [facility] [address] Performing Lab: [facility] [address] [facility] CYSTATIN C WITH EGFR CYSTATIN C [MASS/VOLU ME] IN SERUM OR PLASMA 1.38 mg/L 0.51 - 1.05 11/28 /2022 H Specimen Type: PLASMA No comment entered. Ordering Provider: ANKUSH BOWMAN Report Released Date/Time: Sep 24, 2022 01:55 PM Reporting Lab: [facility] [address] Performing Lab: [facility] [address] [facility] CYSTATIN C WITH EGFR CYSTATIN C AND GLOMERULAR FILTRATION RATE BY CYSTATIN-B ASED FORMULA PANEL - SERUM OR PLASMA 48 60 10/08 L Specimen Type: PLASMA No comment entered. Ordering Provider: ANKUSH BOWMAN Report Released Date/Time: Sep 24, 2022 01:55 PM Reporting Lab: [facility] [address] Performing Lab: [facility] [address] [facility] VIT D 25-OH,TO ZAMZAM 25-HYDROXY VITAMIN D3 [MASS/VOLU ME] IN SERUM OR PLASMA 54 ng/mL 12 - 50 10/08 H Specimen Type: SERUM No comment entered. Ordering Provider: ANKUSH BOWMAN Report Released Date/Time: Sep 24, 2022 01:55 PM Reporting Lab: [facility] [address] Performing Lab: [facility] [address] [facility] COMPREHE NSIVE METABOLI C PANEL+MG CREATININE [MASS/VOLU ME] IN SERUM OR PLASMA 0.7 mg/dL 0.7 - 1.2 05/28 Specimen Type: PLASMA No comment entered. Ordering Provider: GERMANIA HANSON Report Released Date/Time: May 28, 2022 03:06 PM Reporting Lab: [facility] [address] Performing Lab: [facility] [address] [facility] COMPREHE NSIVE METABOLI C PANEL+MG UREA NITROGEN [MASS/VOLU ME] IN SERUM OR PLASMA 13 mg/dL 8 - 26 05/28 Specimen Type: PLASMA No comment entered. Ordering Provider: GERMANIA HANSON Report Released Date/Time: May 28, 2022 03:06 PM Reporting Lab: [facility] [address] Performing Lab: [facility] [address] [facility] COMPREHE NSIVE METABOLI C PANEL+MG GLUCOSE [MASS/VOLU ME] IN SERUM OR PLASMA 98 mg/dL 74 - 100 05/28 Specimen Type: PLASMA No comment entered. Ordering Provider: GERMANIA HANSON Report Released Date/Time: May 28, 2022 03:06 PM Reporting Lab: [facility] [id number] Performing Lab: [facility] [phone] [facility] COMPREHE NSIVE METABOLI C PANEL+MG SODIUM [MOLES/VOL UME] IN SERUM OR PLASMA 138 mmol/L 136 - 145 05/28 Specimen Type: PLASMA No comment entered. Ordering Provider: GERMANIA HANSON Report Released Date/Time: May 28, 2022 03:06 PM Reporting Lab: [facility] [phone] Performing Lab: [facility] [phone] [facility] COMPREHE NSIVE METABOLI C PANEL+MG POTASSIUM [MOLES/VOL UME] IN SERUM OR PLASMA 4.4 mmol/L 3.5 - 5.1 05/28 Specimen Type: PLASMA No comment entered. Ordering Provider: GERMANIA HANSON Report Released Date/Time: May 28, 2022 03:06 PM Reporting Lab: [facility] [phone] Performing Lab: [facility] [phone] [facility] COMPREHE NSIVE METABOLI C PANEL+MG CHLORIDE [MOLES/VOL UME] IN SERUM OR PLASMA 102 mmol/L 98 - 107 05/28 Specimen Type: PLASMA No comment entered. Ordering Provider: GERMANIA HANSON Report Released Date/Time: May 28, 2022 03:06 PM Reporting Lab: [facility] [phone] Performing Lab: [facility] [phone] [facility] COMPREHE NSIVE METABOLI C PANEL+MG CARBON DIOXIDE, TOTAL [MOLES/VOL UME] IN SERUM OR PLASMA 28 mmol/L 22 - 29 05/28 Specimen Type: PLASMA No comment entered. Ordering Provider: GERMANIA HANSON Report Released Date/Time: May 28, 2022 03:06 PM Reporting Lab: [facility] [address] Performing Lab: [facility] [address] [facility] COMPREHE NSIVE METABOLI C PANEL+MG CALCIUM [MASS/VOLU ME] IN SERUM OR PLASMA 9.4 mg/dL 8.4 - 10.2 05/28 Specimen Type: PLASMA No comment entered. Ordering Provider: GERMANIA HANSON Report Released Date/Time: May 28, 2022 03:06 PM Reporting Lab: [facility] [address] Performing Lab: [facility] [address] [facility] COMPREHE NSIVE METABOLI C PANEL+MG PROTEIN [MASS/VOLU ME] IN SERUM OR PLASMA 7.6 g/dL 6.0 - 8.3 05/28 Specimen Type: PLASMA No comment entered. Ordering Provider: GERMANIA HANSON Report Released Date/Time: May 28, 2022 03:06 PM Reporting Lab: [facility] [address] Performing Lab: [facility] [address] [facility] COMPREHE NSIVE METABOLI C PANEL+MG ALBUMIN [MASS/VOLU ME] IN SERUM OR PLASMA 4.0 g/dL 3.5 - 5.2 05/28 Specimen Type: PLASMA No comment entered. Ordering Provider: GERMANIA HANSON Report Released Date/Time: May 28, 2022 03:06 PM Reporting Lab: [facility] [address] Performing Lab: [facility] [address] [facility] COMPREHE NSIVE METABOLI C PANEL+MG BILIRUBIN. TOTAL [MASS/VOLU ME] IN SERUM OR PLASMA 0.5 mg/dL 0.2 - 1.2 05/28 Specimen Type: PLASMA No comment entered. Ordering Provider: GERMANIA HANSON Report Released Date/Time: May 28, 2022 03:06 PM Reporting Lab: [facility] [address] Performing Lab: [facility] [address] [facility] COMPREHE NSIVE METABOLI C PANEL+MG MAGNESIUM [MASS/VOLU ME] IN SERUM OR PLASMA 2.1 mg/dL 1.6 - 2.6 05/28 Specimen Type: PLASMA No comment entered. Ordering Provider: GERMANIA HANSON Report Released Date/Time: May 28, 2022 03:06 PM Reporting Lab: [facility] [address] Performing Lab: [facility] [address] [facility] COMPREHE NSIVE METABOLI C PANEL+MG ANION GAP IN SERUM OR PLASMA 8 mmol/L 5 - 15 05/28 Specimen Type: PLASMA No comment entered. Ordering Provider: GERMANIA HANSON Report Released Date/Time: May 28, 2022 03:06 PM Reporting Lab: [facility] [address] Performing Lab: [facility] [address] [facility] COMPREHE NSIVE METABOLI C PANEL+MG ALKALINE PHOSPHATAS E [ENZYMATIC ACTIVITY/V OLUME] IN SERUM OR PLASMA 108 U/L 40 - 150 05/28 Specimen Type: PLASMA No comment entered. Ordering Provider: GERMANIA HANSON Report Released Date/Time: May 28, 2022 03:06 PM Reporting Lab: [facility] [address] Performing Lab: [facility] [address] [facility] COMPREHE NSIVE METABOLI C PANEL+MG ALANINE AMINOTRANS FERASE [ENZYMATIC ACTIVITY/V OLUME] IN SERUM OR PLASMA 27 U/L <55 - 55 05/28 Specimen Type: PLASMA No comment entered. Ordering Provider: GERMANIA HANSON Report Released Date/Time: May 28, 2022 03:06 PM Reporting Lab: [facility] [address] Performing Lab: [facility] [address] [facility] COMPREHE NSIVE METABOLI C PANEL+MG ASPARTATE AMINOTRANS FERASE [ENZYMATIC ACTIVITY/V OLUME] IN SERUM OR PLASMA 21 U/L <34 - 34 05/28 Specimen Type: PLASMA No comment entered. Ordering Provider: GERMANIA HANSON Report Released Date/Time: May 28, 2022 03:06 PM Reporting Lab: [facility] [address] Performing Lab: [facility] [address] [facility] COMPREHE NSIVE METABOLI C PANEL+MG GLOMERULAR FILTRATION RATE/1.73 SQ M.PREDICTE D [VOLUME RATE/AREA] IN SERUM, PLASMA OR BLOOD BY CREATININE -BASED FORMULA (CKD-EPI) >90 60 05/28 Specimen Type: PLASMA No comment entered. Ordering Provider: GERMANIA HANSON Report Released Date/Time: May 28, 2022 03:06 PM Reporting Lab: [facility] [address] Performing Lab: [facility] [address] [facility] Encounters Combined list of: 1) Encounters from Department of [facility] Affairs facilities going back up to thelast 18 months. 2) Encounters from the Department of [employer] facilities going back up to 280 months. Location Location Details Encounter Type Encounter Number Reason For Visit Attending Provider ADM Date DC Date Status Disposition Source [facility] PRO PHONE CALL 5-10 MIN [id number] Diagnos is: ICD-10- CM Z73.6 Limitat ion of activit ies due to disabil ity<br/ > AVE HALEY 12/13 [facility] Outpatient Encounter [id number] 01/08 [facility] PRO PHONE CALL 21-30 MIN [id number] Diagnos is: ICD-10- CM G82.20 Paraple mary kay, unspeci fied
Hever CASTRO 01/08 [facility] Outpatient Encounter [id number] 01/09 [facility] DIABETIC MANAGEMENT PROGRAM, [id number] Diagnos is: ICD-10- CM G82.20 Paraple mary kay, unspeci fied
TIGIST BASSETT A 01[facility]30 [facility] Outpatient Encounter [id number] 02/05 [facility] MTMS BY PHARM ADDL 15 MIN [id number] Diagnos is: ICD-10- CM G82.20 Paraple mary kay, unspeci fied
MANPREET BARRETTEY N 02/05 [facility] OT EVAL LOW COMPLEX 30 MIN [id number] Diagnos is: ICD-10- CM Z73.6 Limitat ion of activit ies due to disabil ity<br/ > Bryn PARDO 02/05 [facility] OFF/OP EST MAY X REQ PHY/QHP [id number] Diagnos is: ICD-10- CM G82.20 Paraple mary kay, unspeci fied
ROSARIAJOSUÉ J 02/05 [facility] PSYCH DIAGNOSTIC EVALUATION [id number] Diagnos is: ICD-10- CM F32.A Depress ion, unspeci fied
BINU GAMEZ 02/05 [facility] OFFICE O/P EST MOD 30-39 MIN [id number] Diagnos is: ICD-10- CM G82.20 Paraple mary kay, unspeci fied
ME LOGAN BOWMAN K 02/05 [facility] PSYCH DIAGNOSTIC EVALUATION [id number] Diagnos is: ICD-10- CM G82.20 Paraple mary kay, unspeci fied
CHIRCHULAAN DESIRE J 02/05 [facility] MEDICAL NUTRITION INDIV IN [id number] Diagnos is: ICD-10- CM Z71.3 Dietary counseling case manager ing and surveil payal<b r/> Kaita ARCHER 02/05 [facility] [place] [id number] Diagnos is: ICD-10- CM Z43.3 Encount er for attenti on to colosto my
VIOLA YOON 02/08 [facility] OFFICE O/P EST HI 40-54 MIN [id number] Diagnos is: ICD-10- CM G82.20 Paraple mary kay, unspeci fied
ME LOGAN BOWMAN 02/13 [facility] WHEELCHAIR MNGMENT TRAINING [id number] Diagnos is: ICD-10- CM Z73.6 Limitat ion of activit ies due to disabil ity<br/ > BOUSLOG,RY AN P 02/13 [facility] Outpatient Encounter [id number] 02/19 [facility] HC PRO PHONE CALL 11-20 MIN [id number] Diagnos is: ICD-10- CM Z73.6 Limitat ion of activit ies due to disabil ity<br/ > BOUSLOG,RY AN P 04/23 [facility] Outpatient Encounter [id number] 04/24 [facility] Outpatient Encounter [id number] 05/24 [facility] OFF/OP EST MARCH X REQ PHY/QHP [id number] Diagnos is: ICD-10- CM G82.20 Paraple mary kay, unspeci fied
VIOLA YOON NDJagdish 05/28 [facility] [place] [facility] WHEELCHAIR MNGMENT TRAINING [id number] Diagnos is: ICD-10- CM Z73.6 Limitat ion of activit ies due to disabil ity<br/ > BOUSLOG,RY AN P 06/10 [facility] [place] [facility] Outpatient Encounter [id number] 10/28 [facility] [place] [facility] Outpatient Encounter [id number] 11/20 [facility] [place] [facility] Outpatient Encounter [id number] 05/12 [facility] Social History Combined list of available smoking, tobacco, and other social history from 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 Social History Type Response Date Comment Sour e Tobacco smoking status [facility] NEVER USED 05/28/20 22 [facility] This section is an empty social history section. DoD Plan of Care List of future care activities from Department [facility] facilities. Additional future care activities may be listed in the Assessment and Plan section. Date/Time Care Activity Care Activity Detail Facili ty 06/24/2024 AMBULATORY - REHAB MEDICINE AMBULATORY - REHAB MEDICINE [facility] 05/12/2024 Consult Order SCI/D WHEELCHAIR SEATING/POSITIONING OUTPT Cons Terminal Operator's Choice [facility] Advance Directives List of completed, amended, or rescinded Advance Directives on record at Department [facility] Affairs facilities. An actual copy of the Directive is not included. Date Advance Directive Provider Source 02/05/2023 ADVANCE DIRECTIVE DISCUSSION GUSTAVO ABAD [facility]
--- OUTSIDE RECORDS SUMMARY | 2024-05-18 12:38 | XMS_ITS | Encounter Summary ---
Author Organization [facility] Address [address], [place] [address] Care Team Providers Care Pickle Maker Name Role Phone Franklin Squires MD Primary Care Provider [phone] Encounter Details Date Type Department Care Team [...] on filedocumented in this encounter Care Teams Pickle Maker Relationship Specialty Start Date End Date Franklin Squires MD [facility] [address] PCP - General Family Practice 03/08/16 documented as of this encounter
--- OUTSIDE RECORDS SUMMARY | 2024-05-18 12:38 | XMS_ITS | Encounter Summary ---
Author Organization [facility] Address [address], [place] [address] Care Team Providers Care Cash Register Balancer Name Role Phone Franklin Squires MD Primary [...] filedocumented in this encounter Care Teams Cash Register Balancer Relationship Specialty Start Date End Date Franklin Squires MD [address] [facility] [address] PCP - General Family Practice 03/08/16 documented as of this encounter
--- OUTSIDE RECORDS SUMMARY | 2024-05-18 12:38 | XMS_ITS | Encounter Summary ---
Author Organization [facility] Address [address], [place] [address] Care Team Providers Care Oven Unloader Name Role Phone Franklin Squires MD Primary Care Provider Encounter Details Date Type Department Care Team (Late st Contact Info) Description 06/07/2015 Correspondence [facility] Radiology [address] [place] [address] Radiology, Provider MRI SAFETY SHEET AND COMPATIBILITY [...] on filedocumented in this encounter Care Teams Oven Unloader Relationship Specialty Start Date End Date Franklin Squires MD [address] [place], [place] [address] [address] PCP - General Family Practice 03/08/16 documented as of this encounter
--- OUTSIDE RECORDS SUMMARY | 2024-05-18 12:38 | XMS_ITS | Encounter Summary ---
Author Organization [facility] Address [address], [place] [address] Care Team Providers Care Chemical Sprayer Name Role Phone Franklin Squires MD Primary Care Provider [phone] Encounter Details Date Type Department Care Team (Late st Contact Info) Description 02/09/2016 [facility] [address] [facility]. [place], [place] [id number] Jodi Aguila PA-C [address] [place] [address] PATIENT LIFT PRESCRIPTION Social History Tobacco Use [...] on filedocumented in this encounter Care Teams Chemical Sprayer Relationship Specialty Start Date End Date Franklin Squires MD 100 [facility] [place] [phone] PCP - General Family Practice 03/08/16 documented as of this encounter
--- OUTSIDE RECORDS SUMMARY | 2024-05-18 12:38 | XMS_ITS | Encounter Summary ---
Author Organization [facility] Address [address] [address] Care Team Providers Care Machine Operator Slitter Technician Name Role Phone Franklin Squires MD Primary Care Provider [phone] Encounter Details Date Type Department Care Team (Late st Contact Info) Description 08/22/2014 Outside Hospital External to [facility] HOSP-D/C SUMMARY Social History Tobacco Use [...] in this encounter Care Teams Machine Operator Slitter Technician Relationship Specialty Start Date End Date Farnklin Squires MD [address] [facility] [place] [address] PCP - General Family Practice 03/08/16 documented as of this encounter
--- OUTSIDE RECORDS SUMMARY | 2024-05-18 12:38 | XMS_ITS | Clinical Summary ---
Author Organization [facility] Address [place], [place] [address] Care Team Providers Care Biometrics Technician Name Role Phone Zelalem Cohen MD Unavailable May Randle) Unavailable Franklin Squires MD Primary Care Provider Fred Craft Unavailable [phone] Diane Charles MD Unavailable [phone] Julia Ware RN Unavailable [phone] Allergies Active Allergy Reactions Criticality Noted Date [...] bedIndications:Non-heal ing surgical wound, subsequent encounter Drive 8th Story 8 inch low loss mattress and 1/2 rails. Semi-electric bed. Length of need 6 weeks. Bed restaurant assistant:no 1 unit 018 Active acetaminophen (TYLENOL EXTRA STRGTH) 500 mg tabletIndications:fever ,pain Take 1,000 mg by mouth three times daily. Max acetaminophen dose: 4000mg in 24 hrs. Active sodium chloride (AYR SALINE NASL) Inhale 2-3 Sprays in the nostril(s) once daily if needed. 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 [employer] Click Ostomy Barrier with belt tabs 60mm, Cut-to-Fit 01/16 - 2 11/18. Item #[id number]. 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),Anticoagulation monitoring, INR range 2-3,Anticoagulation monitoring, INR range 2-3,SDH (subdural hematoma) (HC) Take by mouth 7.5 mg (7.5 mg x 1) every day in the evening OR as directed 024 Active baclofen (LIORESAL) 20 mg tabletIndications: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 02/19/2007 09/27/2008 Depressive disorder, not elsewhere classified 02/14/20 07 01/15/2018 Abnormality of gait 12/24/2006 09/27/20 08 Urinary tract infection, site not specified 12/24/2006 01/15/2018 BENIGN ESSENTIAL HYPERTENSION 12/24/2006 04/17/2016 Overview: borderline Necrotizing fasciitis 2018 Type 2 diabetes mellitus Encounters Date Type Department Care Team Description 05/14/[address] [place] [address] Franklin Squires MD Refill Request (Baclofen) 05/14/[address] [place] [address] Franklin Squires MD Refill Request (Warfarin) 05/13/2024 Anticoagulation (warfarin) [address] [place] [address] 1, [facility]ly [facility] Anticoagulation (Acelis) 05/11/[address] [address] Franklin Squires MD Form (Physician Orders and Home Health Certification and Plan of Care.) 05/06/2024 Anticoagulation (warfarin) [address] [address] 1, [facility] Anticoagulation (Acelis) 05/05/[address] [address] Franklin Squires MD Form (60 Day Summary Report) 05/05/[address] [place] [address] Franklin Squires MD Refill Request (Warfarin) 05/04/[address] [address] Franklin Squires MD Form 05/04/[address] [place] [address] Franklin Squires MD Refill Request (Oxycodone) 05/01/2024 Anticoagulation (warfarin) [address] [place] [address] 1, [facility] Anticoagulation (Acelis) 04/29/[address] [address] Franklin Squires MD Refill Request (Duloxetine, Donepezil) 04/24/2024 2:49 PM CDT - 04/24/2024 2:50 PM CDT Emergency [facility] [address] [place] [address] Discharge Disposition: Against Medical Advice or Discontinued Care 04/24/2024 Travel 04/24/2024 Anticoagulation (warfarin) [address] [phone] 1, [facility] Anticoagulation (Acelis) 04/21/[address] [phone] Franklin Squires MD Refill Request (Gabapentin) 04/20/[address] [phone] Franklin Squires MD Form (Physician Orders. Urinary Catheter - Suprapubic. ) 04/20/[address] [place] [phone] Franklin Squires MD Refill Request (Gabapentin 400 mg) 04/13/[address] [phone] Franklin Squires MD Form (Standard Written Order: Rehab Accessories. Ryanion, Quadtro Select HI PRO 20x20 or 11x11 CELL) 04/07/2024 Anticoagulation (warfarin) [address] [place] [phone] 1, [facility] Anticoagulation (acelis) 04/07/[address] [phone] Franklin Squires MD Form (Physician Orders) 04/03/2024 2:30 PM CDT Office Visit [address] [place] [address] Franklin Squires MD Follow Up (6 week follow up) 04/03/2024 Travel 04/02/2024 Refill [facility] [address] [place] [address] Franklin Squires MD Refill Request (Oxycodone) 03/28/2024 Refill [facility] [address] [place] [address] Franklin Squires MD Refill Request (Furosemide) 03/20/2024 4:32 PM CDT - 03/20/2024 8:34 PM CDT Emergency [facility] [address] [place] [address] Quan Corbett PA Suprapubic catheter dysfunction, initial encounter (HC) (Primary Dx) Discharge Disposition: Home Self Care 03/20/2024 Travel 03/20/[address] [place] [address] Franklin Squires MD other (I / UPDATE ) 03/19/2024 Anticoagulation (warfarin) [address] [address] 1, [facility] Anticoagulation (acelis) 03/13/2024 2:10 PM CDT Orders Only [address] [address] Lab, [facility] 03/13/2024 Travel 03/10/[address] [address] Franklin Squires MD Form (Home Health Certification and Plan of Care. ) 03/10/[address] [address] Franklin Squires MD Form (60 day summary report. SNV 2x/wk for wound care.) 03/05/2024 Anticoagulation (warfarin) [address] [address] 1, [facility] Anticoagulation (Acelis) 03/02/[address] [address] Gabrielle Prado PA Refill Request (Oxycodone) 03/02/[address] [address] Franklin Squires MD Refill Request (Lorazepam) 02/24/2024 Patient Outreach [facility] Care Management - Advanced Care Team [address] [place] [address] Archana Wright RN Complex Care Management (ACO outreach engagement ) 02/24/[address] [address] Franklin Squires MD Form (Physician Orders. Medication order: Lorazapam 0.5 mg; oral tablet. Amoxicillin- clavulanate 875mg) 02/24/[address] [address] Franklin Squires MD Refill Request (LORazepam (ATIVAN) 0.5 mg tab) 02/20/2024 1:30 PM CDT Office Visit [address] [address] Franklin Squires MD Hospital F/U (02/15/24) 02/20/2024 Anticoagulation (warfarin) [address] [address] 1, [facility] Anticoagulation 02/20/2024 Travel 02/18/2024 Anticoagulation (warfarin) [address] [address] 1, [facility] Anticoagulation (acelis) 02/18/2024 Patient Outreach [address] [facility] [place] [address] Archana Stein RN Primary RN Care Management (Hospital DC:02/17/24/LACE:47/Pne [facility]); Hospital F/U 02/17/2024 Telephone [facility] [address] [facility] [place] [address] Franklin Squires MD Form (Service Order: Hold. Acute care hospitalization for pneumonia. Hold [facility] services pending discharge plans. Effective: 02/15/2024) 02/15/2024 4:34 PM CDT - 02/17/2024 2:45 PM CDT Hospital Encounter [facility] [address] JANNADEAN STEPHENSLES [place] [address] [facility] Internal Foge, MD Oziel Hollingsworth Alireza, MD Pneumonia due to infectious organism, unspecified laterality, unspecified part of lung (Primary Dx); History of DVT (deep vein thrombosis); Pressure injury of right buttock, stage 1 Discharge Disposition: Home Self Care from Last 3 Months Immunizations Name Administration [...] 04/24/2024 1:48 PM CDT Plan of Treatment Upcoming Encounters Date Type Department Care Team (Late st Contact Info) Description 07/02/2024 1:30 PM CDT Office Visit [facility] [address] [place] [address] Franklin Squires MD [address] [place] [address] Health Maintenance Due Date Last Done Comments [...] Associated Diagnosis Comments HOME MONITOR AC Routine 05/13/2024 12:00 AM CDT HOME MONITOR AC Routine 05/06/2024 12:00 AM [...] PROTIME-INR Early AM 02/17/2024 5:11 AM CDT from Last 3 Months Results * (ABNORMAL) HOME MONITOR AC (05/13/2024 12:00 AM CDT) Only the most recent of8 resultswithin the time period is included. PATIENT REPORTED HOME INR 1.9(L) 2.00 - 3.00 AL[facility] HOME MONITORING 05/13/2024 Franklin Squires MD OTHER [facility] [address] [place] [address] * BLADDER CATHETERIZATION (03/20/2024 7:52 PM CDT) [...] ?Risks discussed: ??Pain, incomplete procedure and infection [place] protocol: ??Procedure explained and questions answered to [...] CDT) CULTURE RESULT(A) 03/28/2024 11:28 AM CDT [facility] CULTURE 2+ Klebsiella pneumoniae 03/28/2024 11:28 AM CDT [facility] CULTURE 2+ Pseudomonas aeruginosa 03/28/2024 11:28 AM CDT [facility] CULTURE 2+ Staphylococcus aureus 03/28/2024 11:28 AM CDT [facility] Comment:Isolate is MRSA (Met hicillin-resistant Staph aureus). CULTURE 2+ Mixed brigette present 03/28/2024 11:28 AM CDT [facility] GRAM STAIN No PMNs 03/28/2024 11:28 AM CDT [facility] GRAM STAIN No Epithelial cells 03/28/2024 11:28 AM CDT [facility] GRAM STAIN No RBCs 03/28/2024 11:28 AM CDT [facility] GRAM STAIN 4+ Gram Negative Bacilli 03/28/2024 11:28 AM CDT [facility] GRAM STAIN 2+ Gram Positive Cocci 03/28/2024 11:28 AM CDT [facility] Other SPECIMEN FROM [facility] / Unknown Non-Blood / Unknown 03/20/2024 5:01 PM CDT 03/20/2024 5:05 PM CDT [facility] - 03/28/2024 11:28 AM CDT [...] 1: S Staphylococcus aureus TRIMETHOPRIM/SULF <=0.5/9.5: S uQan RAMSEY MICROBIOLOG Y [facility] [address] [place] [address], * (ABNORMAL) CBC WITH AUTO DIFFERENTIAL (03/20/2024 4:58 PM T) Only the most recent of2 resultswithin the time period is included. WHITE BLOOD COUNT 10.9 4.5 - 11.0 thou/cu mm 03/20/2024 5:06 PM [facility] RED BLOOD COUNT 4.92 4.30 - 5.90 mil/cu mm 03/20/2024 5:06 PM [facility] HEMOGLOBIN 12.7(L) 13.5 - 17.5 g/dL 03/20/2024 5:06 PM [facility] HEMATOCRIT 40.0 37.0 - 53.0 % 03/20/2024 5:06 PM [facility] MCV 81 80 - 100 fL 03/20/2024 5:06 PM [facility] MCH 25.8(L) 26.0 - 34.0 pg 03/20/2024 5:06 PM [facility] MCHC 31.8(L) 32.0 - 36.0 g/dL 03/20/2024 5:06 PM [facility] RDW 18.1(H) 11.5 - 15.5 % 03/20/2024 5:06 PM [facility] PLATELET COUNT 263 140 - 440 thou/cu mm 03/20/2024 5:06 PM [facility] MPV 9.4 6.5 - 11.0 fL 03/20/2024 5:06 PM [facility] % NEUT 68.4 % 03/20/2024 5:06 PM [facility] % LYMPH 20.1 % 03/20/2024 5:06 PM [facility] % MONO 8.4 % 03/20/2024 5:06 PM [facility] % EOS 2.8 % 03/20/2024 5:06 PM [facility] % BASO 0.3 % 03/20/2024 5:06 PM CDT [facility] ABSOLUTE NEUTROPHILS 7.4(H) 1.7 - 7.0 thou/cu mm 03/20/2024 5:06 PM CDT [facility] ABSOLUTE LYMPHOCYTES 2.2 0.9 - 2.9 thou/cu mm 03/20/2024 5:06 PM CDT [facility] ABSOLUTE MONOCYTES 0.9(H) <0.9 thou/cu mm 03/20/2024 5:06 PM CDT [facility] ABSOLUTE EOSINOPHILS 0.3 <0.5 thou/cu mm 03/20/2024 5:06 PM CDT [facility] ABSOLUTE BASOPHILS 0.0 <0.3 thou/cu mm 03/20/2024 5:06 PM CDT [facility] Blood BLOOD SPECIMEN / Unknown Butterfly / Unknown 03/20/2024 4:58 PM CDT 03/20/2024 5:02 PM CDT Quan RAMSEY HEMATOLOGY [facility] [address] [place] [address] * LACTATE VENOUS (03/20/2024 4:58 PM CDT) [facility] LACTATE,VENOUS 1.3 0.5 - 2.0 mmol/L 03/20/2024 5:21 PM CDT [facility] Blood BLOOD SPECIMEN / Unknown Butterfly / Unknown 03/20/2024 4:58 PM CDT 03/20/2024 5:02 PM CDT Quan RAMSEY CHEMISTRY [facility] [address] [place] [address] * (ABNORMAL) BASIC METABOLIC PANEL (03/20/2024 4:58 PM CDT) [facility] SODIUM 139 136 - 145 mmol/L 03/20/2024 5[facility] POTASSIUM 4.5 3.5 - 5.1 mmol/L 03/20/2024 5:22 PM [facility] CHLORIDE 100 98 - 107 mmol/L 03/20/2024 5:22 PM [facility] CO2,TOTAL 29 22 - 29 mmol/L 03/20/2024 5:22 PM [facility] ANION GAP 10 5 - 18 03/20/2024 5:22 PM [facility] GLUCOSE 115(H) 70 - 99 mg/dL 03/20/2024 5:22 PM [facility] CALCIUM 9.4 8.8 - 10.2 mg/dL 03/20/2024 5:22 PM [facility] BUN 21 8 - 23 mg/dL 03/20/2024 5:22 PM [facility] CREATININE 0.63(L) 0.70 - 1.20 mg/dL 03/20/2024 5:22 PM [facility] BUN/CREAT RATIO 33(H) 10 - 20 5:22 PM [facility] eGFR >90 >90 mL/min/1.7 3m2 03/20/2024 5:22 PM [facility] Comment:As of 2022, eG FR is calculated by the CKD-EPI creatinine equation without race adjustment. ??eGFR can be influenced by muscle mass, exercise, and diet. ??The reported eGFR is an estimation only and is only applicable if the renal function is stable. Blood BLOOD SPECIMEN / Unknown Butterfly / Unknown 03/20/2024 4:58 PM CDT 03/20/2024 5:02 PM T Quan RAMSEY CHEMISTRY [facility] [address] [place] [address] * (ABNORMAL) URINALYSIS MICROSCOPIC (03/13/2024 11:04 AM CDT) RBC 0-2 0-2, None Seen /HPF 03/13/2024 2:26 PM CDT [facility] WBC 6-10(A) 0-2, 3-5, None Seen /HPF 03/13/2024 2:26 PM CDT [facility] BACTERIA Few None Seen, Rare, Few Bacteria/ HPF 03/13/2024 2:26 PM CDT [facility] EPITHELIAL CELLS Few None Seen, Few Epi/HPF 03/13/2024 2:26 PM CDT [facility] WHITE CELL CLUMPS Present(A) (none) 03/13/2024 2:26 PM CDT [facility] Urine URINE SPECIMEN / Unknown Non-Blood / Unknown 03/13/2024 11:04 AM CDT 03/13/2024 1:37 PM CDT Franklin Squires MD URINE [facility] [address] [place] [id number] * (ABNORMAL) URINE CULTURE (03/13/2024 11:04 AM CDT) CULTURE RESULT(A) 03/16/2024 9:13 AM CDT [facility] CULTURE >100,000 CFU/mL Pseudomonas aeruginosa 03/16/2024 9:13 AM CDT [facility] CULTURE 50,000-100,000 CFU/mL Staphylococcus aureus 03/16/2024 9:13 AM CDT [facility] CULTURE 10,000-50,000 CFU/mL Enterobacter cloacae complex 03/16/2024 9:13 AM CDT [facility] Comment: May develop [...] AM CDT 03/13/2024 1:37 PM CDT Narrative [facility] - 03/16/2024 9:13 AM CDT May represent colonization. No further workup pending. Franklin Squires MD MICROBIOLOGY [facility] [address] [place] [address], [place] * (ABNORMAL) UA W/ SEDIMENT EXAM REFLEXED PER CRITERIA (03/13/2024 11:04 AM CDT) COLOR Yellow Yellow Color 03/13/2024 2:24 PM [facility] CLARITY Clear Clear Clarity 03/13/2024 2:24 PM [facility] SPECIFIC GRAVITY,URINE <=1.005(A) 1.010, 1.015, 1.020, 1.025 03/13/2024 2:24 PM [facility] PH,URINE 6.5 6.0, 7.0, 8.0, 5.5, 6.5, 7.5, 8.5 03/13/2024 2:24 PM [facility] UROBILINOGEN, QUALITATIVE Normal Normal EU/dl 03/13/2024 2:24 PM [facility] PROTEIN, URINE Negative Negative mg/dL 03/13/2024 2:24 PM [facility] GLUCOSE, URINE Negative Negative mg/dL 03/13/2024 2:24 PM [facility] KETONES,URINE Negative Negative mg/dL 03/13/2024 2:24 PM [facility] BILIRUBIN,URI NE Negative Negative 03/13/2024 2:24 PM [facility] OCCULT BLOOD,URINE Moderate(A) Negative 03/13/2024 2:24 PM [facility] NITRITE Negative Negative 03/13/2024 2:24 PM [facility] LEUKOCYTE ESTERASE Moderate(A) Negative 03/13/2024 2:24 PM [facility] Urine URINE SPECIMEN / Unknown Non-Blood / Unknown 03/13/2024 11:04 AM CDT 03/13/2024 1:37 PM CDT Franklin Squires MD URINE Performing Organization Address City/[facility] Co de Phone Number [facility] [address] [place] [address] * POTASSIUM (02/20/2024 2:15 PM CDT) Only the most recent of2 resultswithin the time period is included. POTASSIUM 4.3 3.5 - 5.1 mmol/L 02/20/2024 4:02 PM CDT [facility] Blood BLOOD SPECIMEN / Unknown Venipuncture / Unknown 02/20/2024 2:15 PM CDT 02/20/2024 3:06 PM CDT Franklin Squires MD CHEMISTRY Performing Organization Address [facility] de Phone Number [facility] [address] [place] [address] * (ABNORMAL) PROTIME-INR (02/20/2024 2:15 PM CDT) Only the most recent of2 resultswithin the time period is included. INR 1.9(H) <1.3 02/20/2024 2:38 PM CDT [facility] PROTIME 21.2(H) 10.3 - 12.3 sec 02/20/2024 2:38 PM CDT [facility] Blood BLOOD SPECIMEN / Unknown Venipuncture / Unknown 02/20/2024 2:15 PM CDT 02/20/2024 2:15 PM CDT Narrative [facility] - 02/20/2024 2:38 PM CDT [...] is on UFH. Franklin Squires MD HEMATOLOGY [facility] [address] [place] [address] * SODIUM (02/17/2024 5:11 AM CDT) SODIUM 140 136 - 145 mmol/L 02/17/2024 6:14 AM CDT [facility] Blood BLOOD SPECIMEN / Unknown Butterfly / Unknown 02/17/2024 5:11 AM CDT 02/17/2024 5:44 AM CDT John Ludwig MD CHEMISTRY [facility] [place] ZIP [phone] [employer] [facility] [place] [address] * (ABNORMAL) CREATININE (02/17/2024 5:11 AM CDT) eGFR >90 >90 mL/min/1.7 3m2 02/17/2024 6:14 AM CDT [facility] Comment:As of 2022, eG FR is calculated by the CKD-EPI creatinine equation without race adjustment. ??eGFR can be influenced by muscle mass, exercise, and diet. ??The reported eGFR is an estimation only and is only applicable if the renal function is stable. CREATININE 0.56(L) 0.70 - 1.20 mg/dL 02/17/2024 6:14 AM CDT [facility] Blood BLOOD SPECIMEN / Unknown Butterfly / Unknown 02/17/2024 5:11 AM CDT 02/17/2024 5:44 AM CDT John Ludwig MD CHEMISTRY [facility] [place] ZIP [phone] [employer] [facility] [facility] [place] [address] * MAGNESIUM (02/17/2024 5:11 AM CDT) MAGNESIUM 2.0 1.6 - 2.4 mg/dL 02/17/2024 7:44 AM CDT [facility] Blood BLOOD SPECIMEN / Unknown Butterfly / Unknown 02/17/2024 5:11 AM CDT 02/17/2024 5:44 AM CDT John Ludwig MD CHEMISTRY [facility] [place]NAL ZIP [phone] [place] [address] from Last 3 Months Additional Health Concerns [...] 12 months since positive culture): resides in acute/snf care, receiving hemodialysis, has chronic open wounds/skin damage, has long-term percutaneous indwelling medical devices Exclusions for nares collection (if <12 months since positive culture) include all of the previous exclusions plus patients on antibiotics 7 days prior to collection 03/13/2018 03/20/2024 Advance Directives Documents on File Type Date Recorded Patient Tile Decorator Expl anation Healthcare Directive 05/09/2023 023 Healthcare [...] Code Status Discussion: Reviewed Preferences Care Teams Biometrics Technician Relationship Specialty Start Date End Date Franklin Squires MD [address] [place] [address] PCP - General Family Practice 10/18/15 Zelalem Cohen MD Physical Therapist 03/13/12 May Randle), Physical Medicine and Rehabilitation 03/13/12 Luana, ANTHONY KruegerW [address] [place] [address] Stenotypist 05/03/17 Diane Charles MD [address] [place] [address] Surgery - Urology 01/17/23 Julia Ware, RN [address] [place] [address] Registered Nurse 07/17/23
--- OUTSIDE RECORDS SUMMARY | 2024-05-18 12:38 | XMS_ITS | Encounter Summary ---
Author Organization [facility] Address [address], [place] [address] Care Team Providers Care Senior Java Data Architect Name Role Phone Franklin Squires MD Primary Care Provider [phone] Encounter Details Date Type Department Care Team (Latest Contact Info) Description 12/11/2017 [facility]ence [facility] [address] [place] [address] May Randle MD [address] [place] [address] [employer] Social History Tobacco Use [...] in this encounter Care Teams Senior Java Data Architect Relationship Specialty Start Date End Date Franklin Squires MD [address] [place] [address] [place] [address] PCP - General Family Practice 03/08/16 documented as of this encounter
--- OUTSIDE RECORDS SUMMARY | 2024-05-18 12:38 | XMS_ITS ---
Author Organization [facility] [employer] Address [address], [place] [address] Care Team Providers Care Metal Coater Name Role Phone Franklin Squires MD [...] 0 06/10/2014 History of anticoagulant therapy 02/17/2014 termination clerk current use of anticoagulant therapy 0 [...] treatments are documented for this patient in [facility]. Treatments may have been administered in another system. Resolved Problems Problem Noted Date Diagnosed Date Resolved Date Gait abnormality 01/17/2012 02/09/2015 Back pain 01/17/2012 02/09/2015 Paraplegia 04/04/2011 02/09/2015 Osteoporosis 03/06/2011 02/09/2015 Urinary tract infection 12/24/200603/11
--- OUTSIDE RECORDS SUMMARY | 2024-05-18 12:38 | XMS_ITS | Encounter Summary ---
Author Organization [facility] [address], [place] [address] Care Team Providers Care Stock Driver Name Role Phone Franklin Squires MD Primary Care Provider [phone] Encounter Details Date Type Department Care Team (Late st Contact Info) Description 11/10/2014 Correspondence [facility] Physical Therapy [address] [place] [address] Trudi Raymundo, PT [address] [place] [address] LETTER OF MEDICAL NECESSITY Social History Tobacco [...] filedocumented in this encounter Care Teams Stock Driver Relationship Specialty Start Date End Date Franklin Squires MD 100 [facility] [place] [address] PCP - General Family Practice 03/08/16 documented as of this encounter
--- OUTSIDE RECORDS SUMMARY | 2024-05-18 12:38 | XMS_ITS | Encounter Summary ---
Author Organization [facility] Address [address], [place] [address] Care Team Providers Care Ceramic Designer Name Role Phone Franklin Squires MD Primary Care Provider [phone] Encounter Details Date Type Department Care Team (Late st Contact Info) Description 12/14/2014 Correspondence [facility] 401 Physical Medicine 401 [facility] [address] May Randle MD [address] [place] [address] DETAILED PRODUCT DESCRIPTION Social History Tobacco Use [...] on filedocumented in this encounter Care Teams Ceramic Designer Relationship Specialty Start Date End Date Franklin Squires MD 100 [facility] [place] [address] PCP - General Family Practice 03/08/16 documented as of this encounter
--- OUTSIDE RECORDS SUMMARY | 2024-05-18 12:38 | XMS_ITS | Clinical Summary ---
Author Organization [facility] Address [address] [place] [address] Care Team Providers Care Salesperson Driver Name Role Phone Franklin Squires MD Primary Care Provider [phone] Source Comments You are receiving this document [...] for each transition of care or referral. [facility] Allergies Active Allergy Reactions Criticality Noted Date [...] 0 06/10/2014 History of anticoagulant therapy 02/17/2014 jail current use of anticoagulant therapy 0 02/17/2014 [...] Comments Blood Pressure 120/63 01/18/2022 12:59 PM AD COPY WRITER Pulse 87 01/18/2022 12:59 PM AD COPY WRITER Temperature 36.3 ??C (97.4 ??F) 01/18/2022 12:59 [...] season) 2023 08/06/2021, 01/25/2021, 01/02/2021 Influenza (#1) 2024 09/03/2021, 07/2020, 08/20/2019, Additional history exists Pneumococcal [...] this topic Medical Devices Implanted Type Area Die Fitter Device Identifier Shelf Expiration Date Model / Serial / Lot [id number] 4ml Tisseel Explanted:([place] ntity not on file) BIOLOGIC N/A: NECK Lynne Fenwall 09/10/2011 [id number] / [id number] / [id number] Description:posterior Cath Intrathecal Indura - [id number] Implanted:Qty: 1 on 05/09/2010 at [facility] [place] DEVICE Right: LUMBAR SPINE Moqom 01/18/2012 8709 / N/A / [id number] Cath Intrathecal Indura - [id number] Implanted:Qty: 1 on 05/29/2010 at [facility] [place] DEVICE Moqom 8709 / / Scr Indira Conic 7.3x80 - [id number] Implanted:Qty: 1 on 03/13/2011 at [facility] [place] DEVICE Right: FEMUR DISTAL [employer] [place] 02.207.28 0 / NONE / NONE Plt Lcp Cndl Rt 4.5x170 6h - [id number] Implanted:Qty: 1 on 03/13/2011 at [facility] [place] DEVICE Right: FEMUR DISTAL [employer] [place] 222.656 / NONE / NONE Description:6 hole 170mm rig ht 4.5mm lcp condylar plate Scr Didier Ss Sftp 4.5x40 - [id number] Implanted:Qty: 1 on 03/13/2011 at [facility] [place] DEVICE Left: FEMUR DISTAL [employer] [place] 214.840 / NONE / NONE Scr Didier Ss Sftp 4.5x50 - [id number] Implanted:Qty: 1 on 03/13/2011 at [facility] [place] DEVICE Left: FEMUR DISTAL [employer] 214.850 / NONE / NONE Scr Indira Lk 5.0x80 - [id number] Implanted:Qty: 2 on 03/13/2011 at [facility] [place] DEVICE Left: FEMUR DISTAL [employer] [place] 02.205.08 0 / NONE / NONE Scr Indira Lk 5.0x85 - [id number] Implanted:Qty: 2 on 03/13/2011 at [facility] [place] DEVICE Left: FEMUR DISTAL [employer] [place] 02.205.08 5 / NONE / NONE Scr Lk Sftp T25 5.0x50 - [id number] Implanted:Qty: 1 on 03/13/2011 at [facility] [place] DEVICE Left: FEMUR DISTAL [employer] [place] 212.219 / NONE / NONE Scr Lk Sftp T25 5.0x60 - [id number] Implanted:Qty: 1 on 03/13/2011 at [facility] [place] DEVICE Left: FEMUR DISTAL [employer] [place] 212.221 / NONE / NONE Scr Indira Conic 7.3x85 - [id number] Implanted:Qty: 1 on 03/13/2011 at [facility] [place] DEVICE Left: FEMUR DISTAL [employer] [place] 02.207.28 5 / NONE / NONE Plt Lcp Cndl Lt 4.5x170 6h - [id number] Implanted:Qty: 1 on 03/13/2011 at [facility] [place] DEVICE Left: FEMUR DISTAL [employer] [place] 222.657 / NONE / NONE Description:6 hole 170mmleng th left 4.5mm lcp condylar plate. Scr Dideir Sftp 3.5x60 F-Thrd - [id number] Implanted:Qty: 1 on 03/13/2011 at [facility] [place] DEVICE Left: TIBIA PROXIMAL [employer] [place] 204.860 / NONE / NONE Scr Star Lk Sftp 3.5x32 - [id number] Implanted:Qty: 1 on 03/13/2011 at [facility] [place] DEVICE Left: TIBIA PROXIMAL [employer] [place] 212.112 / NONE / NONE Scr Star Lk Sftp 3.5x55 - [id number] Implanted:Qty: 2 on 03/13/2011 at [facility] [place] DEVICE Left: TIBIA PROXIMAL [employer] [place] 212.123 / NONE / NONE Scr Star Lk Sftp 3.5x60 - [id number] Implanted:Qty: 2 on 03/13/2011 at [facility] [place] DEVICE Left: TIBIA PROXIMAL [employer] [place] 212.124 / NONE / NONE Plt Lcp M/Prox Lt 3.5x94 4h - [id number] Implanted:Qty: 1 on 03/13/2011 at [facility] [place] DEVICE Left: TIBIA PROXIMAL [employer] [place] 239.955 / NONE / NONE Scr Didier Ss Sftp 4.5x36 - [id number] Implanted:Qty: 1 on 03/13/2011 at [facility] [place] DEVICE Right: FEMUR DISTAL [employer] [place] 214.836 / NONE / NONE Scr Didier Ss Sftp 4.5x44 - [id number] Implanted:Qty: 1 on 03/13/2011 at [facility] [place] DEVICE Right: FEMUR DISTAL [employer] [place] 214.844 / NONE / NONE Scr Indira Lk 5.0x75 - [id number] Implanted:Qty: 1 on 03/13/2011 at [facility] [place] DEVICE Right: FEMUR DISTAL [employer] [place] 02.205.07 5 / NONE / NONE Scr Indira Lk 5.0x85 - [id number] Implanted:Qty: 2 on 03/13/2011 at [facility] [place] DEVICE Right: FEMUR DISTAL [employer] [place] 02.205.08 5 / NONE / NONE Scr Lk Sftp T25 5.0x44 - [id number] Implanted:Qty: 1 on 03/13/2011 at [facility] [place] DEVICE Right: FEMUR DISTAL [employer] [place] 212.216 / NONE / NONE Scr Lk Sftp T25 5.0x65 - [id number] Implanted:Qty: 1 on 03/13/2011 at [facility] [place] DEVICE Right: FEMUR DISTAL [employer] [place] 212.222 / NONE / NONE Plt Lp T Ti Str 4h - [id number] Implanted:Qty: 3 on 07/28/2014 by Cooper Shelley MD at [facility] [place] DEVICE Right: SKULL [employer] [place] 421.504 / / Scr Matrix Sfdr 4mm - [id number] Implanted:Qty: 6 on 07/28/2014 by Cooper Shelley MD at [facility] [place] DEVICE Right: SKULL [employer] [place] 04.503.10 4.01 / / Lead Linear 3-4 8 Contact 50cm - [id number] Implanted:Qty: 1 on 03/08/2016 by Zelalem Cohen DO at [facility] [place] DEVICE N/A: OTHER-SEE DESCRIPTION [employer] [facility] 09/10/2017 [id number] 2500 / / [id number] Description:LUMBAR Lead Linear 3-4 8 Contact 50cm - [id number] Implanted:Qty: 1 on 03/08/2016 by Zelalem Cohen DO at [facility] [place] DEVICE N/A: OTHER-SEE DESCRIPTION [employer] [facility] 09/10/2017 [id number] 2500 / / [id number] Description:LUMBAR Lead Linear 3-4 8 Contact 50cm - [id number] Implanted:Qty: 1 on 03/08/2016 by Zelalem Cohen DO at [facility] [place] DEVICE N/A: OTHER-SEE DESCRIPTION [employer] [facility] 09/10/2017 [id number] 2500 / / [id number] Description:LUMBAR Lead Linear 3-4 8 Contact 50cm - [id number] Implanted:Qty: 1 on 03/08/2016 by Zelalem Cohen DO at [facility] [place] DEVICE N/A: OTHER-SEE DESCRIPTION [employer] [facility] 09/10/2017 [id number] 2500 / / [id number] Description:LUMBAR Lead Linear 3-4 8 Contact 50cm - [id number] Implanted:Qty: 1 on 05/24/2016 by Zelalem Cohen DO at [facility] [place] DEVICE N/A: SPINE LUMBAR POSTERIOR [employer] [facility] 01/31/2018 [id number] 2500 / [id number] / Lead Linear 3-4 8 Contact 50cm - [id number] Implanted:Qty: 1 on 05/24/2016 by Zelalem Cohen DO at [facility] [place] DEVICE N/A: SPINE LUMBAR POSTERIOR [employer] [facility] 04/26/2018 [id number] 2500 / [id number] / Lead Linear 3-4 8 Contact 50cm - [id number] Implanted:Qty: 1 on 05/24/2016 by Zelalem Cohen DO at [facility] [place] DEVICE N/A: SPINE LUMBAR POSTERIOR [employer] [facility] 04/26/2018 [id number] 2500 / [id number] / Lead Linear 3-4 8 Contact 50cm - [id number] Implanted:Qty: 1 on 05/24/2016 by Zelalem Cohen DO at [facility] [place] DEVICE N/A: SPINE LUMBAR POSTERIOR [facility] 04/26/2018 [id number] 2500 / [id number] / Generator Pulse Spectra - [id number] Implanted:Qty: 1 on 05/24/2016 by Zelalem Cohen DO at [facility] [place] DEVICE N/A: SPINE LUMBAR POSTERIOR [facility] 05/08/2018 [id number] / [id number] / [id number] [place] Ran - [id number] Implanted:Qty: 1 on 05/24/2016 by Zelalem Cohen DO at [facility] [place] DEVICE N/A: SPINE LUMBAR POSTERIOR [facility] 05/02/2018 [id number] 60 / / [id number] [place] Ran - [id number] Implanted:Qty: 1 on 05/24/2016 by Zelalem Cohen DO at [facility] [place] DEVICE N/A: SPINE LUMBAR POSTERIOR [employer] 02/28/2018 [id number] 60 / / [id number] Procedures Procedure Name Priority Date/Time Associated Diagnosis Comments CREATININE/GFR, WB POC Routine 01/06/2016 12:04 PM AD COPY WRITER Back pain, 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 HGB A1C Routine 07/29/2014 3:19 AM CDT from Last 3 Months or Most Recently Relevant to Health Maintenance Results * CREATININE/GFR, WB POC (01/06/2016 12:04 PM AD COPY WRITER) Creat Whole Blood 0.9 0.66 - 1.25 mg/dl [facility] GFR, Estimated >60 >60 ml/min/1.7 3m2 [facility] GFR, Est., If Black >60 >60 ml/min/1.7 3m2 [facility] 01/06/2016 12:0 4 PM AD COPY WRITER 01/06/2016 12:21 PM AD COPY WRITER Trae Blair MD LAB_[facility] [phone] * (ABNORMAL) HGB A1C (07/29/2014 3:19 AM CDT) Hgb A1c 6.4(H) 4.3 - 6.1 % [facility] Comment: The usual A1C goal for people with diabetes, age 18-75, is <8.0%. Physicians may recommend a higher or lower goal for specific individuals. 07/29/2014 3:19 AM CDT 07/29/2014 3:22 AM CDT [facility] - 07/29/2014 12:53 PM CDT Performed at [facility], [address] ??[address] [place] Wei PA-C LAB_[address] [address] from Last 3 Months or Most Recently [...] 5:44 PM 07/28/2014 6:50 PM Care Teams Salesperson Driver Relationship Specialty Start Date End Date Franklin Squires MD [address] [facility] [address] [place] [address] PCP - General Family Practice 03/08/16
--- OUTSIDE RECORDS SUMMARY | 2024-05-18 12:38 | XMS_ITS | Encounter Summary ---
Author Organization [facility] Address [address], [place] [address] Care Team Providers Care Agricultural Produce Commission Agent Name Role Phone Franklin Squires MD Primary Care Provider Encounter Details Date Type Department Care Team (Late st Contact Info) Description 12/16/2014 Correspondence External to External, [place] [address] MEDICARE PLAN OF CARE RECERT Social History [...] filedocumented in this encounter Care Teams Agricultural Produce Commission Agent Relationship Specialty Start Date End Date Franklin Squires MD [address] [place] [address] [facility] [address] PCP - General Family Practice 03/08/16 documented as of this encounter
--- OUTSIDE RECORDS SUMMARY | 2024-05-18 12:38 | XMS_ITS | Encounter Summary ---
Author Organization [facility] Address [address], [place] [address] Care Team Providers Care Fruit Picker Name Role Phone Franklin Squires MD Primary Care Provider [phone] Encounter Details Date Type Department Care Team (Late st Contact Info) Description 01/06/2016 Correspondence [facility] Radiology [address] [place] [address] Radiology, Provider MRI SAFETY SHEET AND COMPATIBILITY [...] filedocumented in this encounter Care Teams Fruit Picker Relationship Specialty Start Date End Date Franklin Squires MD [address] [place], [place] [address] [address] PCP - General Family Practice 03/08/16 documented as of this encounter
--- OUTSIDE RECORDS SUMMARY | 2024-05-18 12:38 | XMS_ITS | Encounter Summary ---
Author Organization [facility] Address [address] [address] Care Team Providers Care Test Design Engineer Name Role Phone Franklin Squires MD Primary Care Provider Encounter Details Date Type Department Care Team (Late st Contact Info) Description 11/23/2015 Correspondence External to External, [place] [address] LETTER [facility] Social History Tobacco Use Types [...] filedocumented in this encounter Care Teams Test Design Engineer Relationship Specialty Start Date End Date Franklin Squires MD [address] [place] [address] [place] [address] PCP - General Family Practice 03/08/16 documented as of this encounter
--- OUTSIDE RECORDS SUMMARY | 2024-05-18 12:38 | XMS_ITS | Encounter Summary ---
Author Organization [facility] Address [address], [place] [address] Care Team Providers Care Assistant Professor Of Surgery Name Role Phone Franklin Squires MD Primary Care Provider [phone] Encounter Details Date Type Department Care Team (Late st Contact Info) Description 09/07/2014 Correspondence [facility] Radiology [address] [place] [address] Radiology, Provider MRI SAFETY SHEET AND COMPATIBILITY [...] filedocumented in this encounter Care Teams Assistant Professor Of Surgery Relationship Specialty Start Date End Date Franklin Squires MD [address] [place], [place] [address] [address] PCP - General Family Practice 03/08/16 documented as of this encounter
--- OUTSIDE RECORDS SUMMARY | 2024-05-18 12:38 | XMS_ITS | Encounter Summary ---
Author Organization [facility] [address] [address] Care Team Providers Care Maintenance Groundman Name Role Phone Franklin Squires MD Primary Care Provider Encounter Details Date Type Department Care Team (Late st Contact Info) Description 07/08/2015 Correspondence [facility] Physical Therapy [address] [place] [address] Trudi Raymundo, PT [address] [place] [address] ADDENDUM FOR LETTER OF MEDICAL NECESSITY Social [...] on filedocumented in this encounter Care Teams Maintenance Groundman Relationship Specialty Start Date End Date Franklin Squires MD 100 [facility] [place] [address] PCP - General Family Practice 03/08/16 documented as of this encounter
--- OUTSIDE RECORDS SUMMARY | 2024-05-18 12:39 | XMS_ITS | Encounter Summary ---
Author Organization [facility] Address [address], [place] [address] Care Team Providers Care Automatic Shirring Machine Operator Name Role Phone Franklin Squires MD Primary Care Provider Encounter Details Date Type Department Care Team (Latest Contact Info) Description 06/04/2014 Correspondence [facility] 401 Interventional Pain Management 401 [facility] [place] [address] Zelalem Cohen, DO [address] [place] [address] MEDICAID PT INFORMATION EMPI RECOVERY Social History [...] on filedocumented in this encounter Care Teams Automatic Shirring Machine Operator Relationship Specialty Start Date End Date Franklin Squires MD 100 [facility] [place] [address] PCP - General Family Practice 03/08/16 documented as of this encounter
--- OUTSIDE RECORDS SUMMARY | 2024-05-18 12:39 | XMS_ITS | Encounter Summary ---
Author Organization [facility] Address [address], [place] [address] Care Team Providers Care Environmental Education Specialist Name Role Phone Franklin Squires MD Primary Care Provider [phone] Encounter Details Date Type Department Care Team [...] on filedocumented in this encounter Care Teams Environmental Education Specialist Relationship Specialty Start Date End Date Franklin Squires MD 100 [facility] [place] [address] PCP - General Family Practice 03/08/16 documented as of this encounter
--- OUTSIDE RECORDS SUMMARY | 2024-05-18 12:39 | XMS_ITS | Encounter Summary ---
Author Organization [facility] Address [address], [place] [address] Care Team Providers Care Multimedia Author Name Role Phone Franklin Squires MD Primary Care Provider Encounter Details Date Type Department Care Team (Late st Contact Info) Description 11/13/2012 Correspondence [facility] Radiology [address] [place] [address] Radiology, Provider MRI SAFETY SHEET AND COMPATIBILITY [...] RADIOLOGY, PROVIDER - 11/13/2012 12:00 AM CST RINARY MICROBIOLOGIST documented in this encounter Plan of Treatment Not on file documented as of this encounter Visit Diagnoses Not on filedocumented in this encounter Care Teams Multimedia Author Relationship Specialty Start Date End Date Franklin Squires MD 100 [facility] [place] [address] PCP - General Family Practice 03/08/16 documented as of this encounter
--- OUTSIDE RECORDS SUMMARY | 2024-05-18 12:39 | XMS_ITS | Encounter Summary ---
Author Organization [facility] [address], [place] [address] Care Team Providers Care Uniform Patrol Police Officer Name Role Phone Franklin Squires MD Primary Care Provider [phone] Encounter Details Date Type Department Care Team (Late st Contact Info) Description 10/26/2013 Correspondence [facility] Physical Therapy [address] [place] [address] Trudi Raymundo, PT [address] [place] [address] LETTER OF MEDICAL NECESSITY Social History Tobacco [...] Raymundo, PT - 10/26/2013 12:00 AM CST LITY SERVICE ASSOCIATE documented in this encounter Plan of Treatment Not on file documented as of this encounter Visit Diagnoses Not on filedocumented in this encounter Care Teams Uniform Patrol Police Officer Relationship Specialty Start Date End Date Franklin Squires MD 100 [facility] [place] [address] PCP - General Family Practice 03/08/16 documented as of this encounter
--- OUTSIDE RECORDS SUMMARY | 2024-05-18 12:39 | XMS_ITS | Encounter Summary ---
Author Organization [facility] Address [address], [place] [address] Care Team Providers Care Die Sinker Apprentice Name Role Phone Franklin Squires MD Primary Care Provider Encounter Details Date Type Department Care Team (Late st Contact Info) Description 12/16/2013 Correspondence [facility] Radiology [address] [place] [address] Radiology, Provider MRI SAFETY SHEET AND COMPATIBILITY [...] Radiology, Provider - 12/16/2013 12:00 AM CST ENT ANALYST documented in this encounter Plan of Treatment Not on file documented as of this encounter Visit Diagnoses Not on filedocumented in this encounter Care Teams Die Sinker Apprentice Relationship Specialty Start Date End Date Franklin Squires MD 100 [facility] [place] [address] PCP - General Family Practice 03/08/16 documented as of this encounter
--- OUTSIDE RECORDS SUMMARY | 2024-05-18 12:39 | XMS_ITS | Encounter Summary ---
Author Organization [facility] Address [address], [place] [address] Care Team Providers Care Bomb Technician Name Role Phone Franklin Squires MD Primary Care Provider Encounter Details Date Type Department Care Team (Late st Contact Info) Description 03/11/2014 Correspondence [facility] 401 Interventional Pain Management 401 [facility] [place] [address] Zelalem Cohen, DO [address] [place] [address] EMPI Social History Tobacco Use Types Packs/Day [...] on filedocumented in this encounter Care Teams Bomb Technician Relationship Specialty Start Date End Date Franklin Squires MD 100 [facility] [place] [address] PCP - General Family Practice 03/08/16 documented as of this encounter
--- OUTSIDE RECORDS SUMMARY | 2024-05-18 12:39 | XMS_ITS | Encounter Summary ---
Author Organization [facility] [address] [address] Care Team Providers Care Water Fabricator Operator Name Role Phone Franklin Squires MD Primary Care Provider Encounter Details Date Type Department Care Team (Late st Contact Info) Description 02/05/2014 Correspondence [facility] Physical Therapy [address] [place] [address] Trudi Raymundo, PT [address] [place] [address] LETTER OF MEDICAL NECESSITY FOR A WHEELCHAIR [...] filedocumented in this encounter Care Teams Water Fabricator Operator Relationship Specialty Start Date End Date Franklin Squires MD 100 [facility] [place] [address] PCP - General Family Practice 03/08/16 documented as of this encounter
--- OUTSIDE RECORDS SUMMARY | 2024-05-18 12:39 | XMS_ITS | Encounter Summary ---
Author Organization [facility] Address [address] [address] Care Team Providers Care Boiler Helper Name Role Phone Franklin Squires MD Primary Care Provider Encounter Details Date Type Department Care Team (Late st Contact Info) Description 04/24/2012 Correspondence [facility] Radiology [address] [place] [address] Radiology, Provider MRI SAFETY SHEET AND COMPATIBILITY [...] filedocumented in this encounter Care Teams Boiler Helper Relationship Specialty Start Date End Date Franklin Squires MD 100 [facility] [place] [address] PCP - General Family Practice 03/08/16 documented as of this encounter
--- OUTSIDE RECORDS SUMMARY | 2024-05-18 12:39 | XMS_ITS | Encounter Summary ---
Author Organization [facility] Address [address], [place] [address] Care Team Providers Care Block Inspector Name Role Phone Franklin Squires MD Primary Care Provider Encounter Details Date Type Department Care Team (Late st Contact Info) Description 08/20/2014 Outside Hospital External to [facility] Social History Tobacco Use [...] on filedocumented in this encounter Care Teams Block Inspector Relationship Specialty Start Date End Date Franklin Squires MD [address] [place], [place] [address] [address] PCP - General Family Practice 03/08/16 documented as of this encounter
--- OUTSIDE RECORDS SUMMARY | 2024-05-18 12:39 | XMS_ITS | Encounter Summary ---
Author Organization [facility] Address [address], [place] [address] Care Team Providers Care It Technical Architect Name Role Phone Franklin Squires MD Primary Care Provider Encounter Details Date Type Department Care Team (Late st Contact Info) Description 06/11/2014 [facility] 401 Physical Medicine 401 [place] [address] May Randle MD [address] [place] [address] [facility] Social History Tobacco Use Types [...] filedocumented in this encounter Care Teams It Technical Architect Relationship Specialty Start Date End Date Franklin Squires MD 100 [facility] [place] [address] PCP - General Family Practice 03/08/16 documented as of this encounter
--- OUTSIDE RECORDS SUMMARY | 2024-05-18 12:39 | XMS_ITS | Encounter Summary ---
[facility] Address [address], [place] [address] Care Team Providers Care Controller Operations And Hr Manager Name Role Phone Franklin Squires MD Primary Care Provider Encounter Details Date Type Department Care Team (Late st Contact Info) Description 01/08/2013 Scanned History External to Transferred Record, Provider [facility] Social History Tobacco Use [...] on filedocumented in this encounter Care Teams Controller Operations And Hr Manager Relationship Specialty Start Date End Date Franklin Squires MD [address] [facility] [place] [address] PCP - General Family Practice 03/08/16 documented as of this encounter
--- OUTSIDE RECORDS SUMMARY | 2024-05-18 12:39 | XMS_ITS | Encounter Summary ---
Author Organization [facility] Address [address], [place] [address] Care Team Providers Care Repulping Supervisor Name Role Phone Franklin Squires MD Primary Care Provider [phone] Encounter Details Date Type Department Care Team [...] on filedocumented in this encounter Care Teams Repulping Supervisor Relationship Specialty Start Date End Date Franklin Squires MD [address] [facility] [place] [address] PCP - General Family Practice 03/08/16 documented as of this encounter
--- OUTSIDE RECORDS SUMMARY | 2024-05-18 12:39 | XMS_ITS | Encounter Summary ---
Author Organization [facility] Address [address], [place] [address] Care Team Providers Care Processing Technologist Name Role Phone Franklin Squires MD Primary Care Provider [phone] Encounter Details Date Type Department Care Team (Late st Contact Info) Description 05/04/2014 [facility] 401 Physical Medicine 401 [place] [address] May Randle MD [address] [place] [address] LETTER OF MEDICAL NECESSITY FOR A WHEELCHAIR [...] on filedocumented in this encounter Care Teams Processing Technologist Relationship Specialty Start Date End Date Franklin Squires MD 100 [facility] [place] [address] PCP - General Family Practice 03/08/16 documented as of this encounter
--- OUTSIDE RECORDS SUMMARY | 2024-05-18 12:39 | XMS_ITS | Encounter Summary ---
[facility] Address [address], [place] [address] Care Team Providers Care Enamel Applier Name Role Phone Franklin Squires MD Primary Care Provider Encounter Details Date Type Department Care Team (Late st Contact Info) Description 07/28/2014 Outside Hospital External to External, Provider No address [address] ER VISIT/TRANSFER Social History Tobacco [...] on filedocumented in this encounter Care Teams Enamel Applier Relationship Specialty Start Date End Date Franklin Squires MD 100 [facility] [place] [address] PCP - General Family Practice 03/08/16 documented as of this encounter
--- OUTSIDE RECORDS SUMMARY | 2024-05-18 12:39 | XMS_ITS | Encounter Summary ---
Author Organization [facility] Address [address] [address] Care Team Providers Care Manager Molecular Name Role Phone Franklin Squires MD Primary Care Provider Encounter Details Date Type Department Care Team (Late st Contact Info) Description 08/20/2014 Outside Hospital External to [facility] Social History Tobacco [...] filedocumented in this encounter Care Teams Manager Molecular Relationship Specialty Start Date End Date Franklin Squires MD [address] [facility] [place] [address] PCP - General Family Practice 03/08/16 documented as of this encounter
--- OUTSIDE RECORDS SUMMARY | 2024-05-18 12:39 | XMS_ITS | Encounter Summary ---
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
--- OUTSIDE RECORDS SUMMARY | 2024-05-18 12:39 | XMS_ITS | Encounter Summary ---
Author Organization [facility] Address [address], [place] [address] Care Team Providers Care Thermostat Repairer Name Role Phone Franklin Squires MD Primary Care Provider [phone] Encounter Details Date Type Department Care Team (Late st Contact Info) Description 07/23/2013 [facility] 401 Interventional Pain Management 401 [facility] 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
--- OUTSIDE RECORDS SUMMARY | 2024-05-18 12:39 | XMS_ITS | Encounter Summary ---
Author Organization [facility] Address [address] [address] Care Team Providers Care Program Development Manager Name Role Phone Franklin Squires MD Primary Care Provider Encounter Details Date Type Department Care Team (Late st Contact Info) Description 04/20/[address] [address] Radiology, Provider MRI SAFETY SHEET AND COMPATIBILITY [...] on filedocumented in this encounter Care Teams Program Development Manager Relationship Specialty Start Date End Date Franklin Squires MD 100 [facility] [place] [address] PCP - General Family Practice 03/08/16 documented as of this encounter
== END 2024-05-18 12:36 | disposition home or self-care (01) ==
LOC: WOUND 12:35
PROVIDERS: PCP Family Medicine; Visit Provider Nurse Practitioner Family
DX: L89.324 Pressure ulcer of left buttock, stage 4 (principal); E11.622 Type 2 diabetes mellitus with other skin ulcer; G82.50 Quadriplegia, unspecified
CPT/HCPCS: 11042

== ENCOUNTER 2024-05-25 12:47 | Outpatient (CLI) | payer MEDICARE, OTHER, SELFPAY ==
--- OUTSIDE RECORDS SUMMARY | 2024-05-25 12:50 | XMS_ITS | Clinical Summary ---
Author Organization [facility] Address [place], [place] [address] Care Team Providers Care Paper Production Engineer Name Role Phone Zelalem Cohen MD Unavailable [phone] May Randle) Unavailable Franklin Squires MD Primary Care Provider Fred Craft Unavailable [phone] Diane Charles MD Unavailable [phone] Julia Ware RN Unavailable [phone] Allergies Active Allergy Reactions Criticality Noted Date [...] bedIndications:Non-heal ing surgical wound, subsequent encounter Drive [employer] 8 inch low loss mattress and 1/2 rails. Semi-electric bed. Length of need 6 weeks. Bed product manager:no 1 unit 018 Active acetaminophen (TYLENOL [...] 60mm, Cut-to-Fit 01/16 - 2 11/18. Item #[id number]. 1 Each 11 021 Active ascorbic acid, [...] DAY 180 Capsule 1 023 2023 Discontinued donepeziL (ARICEPT) 5 mg tabletIndications:Millicent hailey TAKE 1 TABLET AT BEDTIME 90 [...] 024 2023 Discontinued amoxicillin-clavulanate 875-125 mg tablet (AUGMENTIN) Take 1 [...] Date Resolved Date Soft tissue infection 10/22/20232023 retirement current use of anticoagulant 06/20/2023 01/08/2024 Cellulitis of scrotum 05/08/20232022 UTI (urinary tract infection) 05/08/2023 06/20/2023 Quadriplegia, unspecified 10/23/2022 Continuous opioid dependence 07/01/2022 08/20/2022 Urinary tract infection asso ciated with indwelling urethral catheter 10/05/2021 06/20/2023 Hypertensive urgency 10/04/2021 023 Type 2 diabetes mellitus, wi [facility] long-term current use of insulin 01/06/2021 [...] delivery 04/16/2007 10/01/2007 Overview: S/P IVC Filter retirement (current) use of anticoagulants 02/19/2007 09/27/2008 Depressive disorder, not elsewhere classified 02/14/20 07 01/15/2018 Abnormality of gait 12/24/2006 09/27/20 08 Urinary tract infection, site not specified 12/24/2006 01/15/2018 BENIGN ESSENTIAL HYPERTENSION 12/24/2006 04/17/2016 Overview: borderline Necrotizing fasciitis 2018 Type 2 diabetes mellitus Encounters Date Type Department Care Team Description 05/20/2024 Anticoagulation (warfarin) [address] [phone] 1, [facility] Anticoagulation (Acelis) 05/14/[address] [phone] Franklin Squires MD Refill Request (Baclofen) 05/14/[address] [phone] Franklin Squires MD Refill Request (Warfarin) 05/13/2024 Anticoagulation (warfarin) [address] [place] [address] 1, [facility] Anticoagulation (Acelis) 05/11/2024 Telephone [facility] [address] [facility] [place] [address] Franklin Squires MD Form (Physician Orders and Home Health Certification and Plan of Care.) 05/06/2024 Anticoagulation (warfarin) [address] [place] [address] 1, [facility] Anticoagulation (Acelis) 05/05/2024 Telephone [facility] [address] [place] [address] Franklin Squires MD Form (60 Day Summary Report) 05/05/[address] [phone] Franklin Squires MD Refill Request (Warfarin) 05/04/2024 Telephone [facility] [address] [facility] [place] [address] Franklin Squires MD Form 05/04/[address] [address] Franklin Squires MD Refill Request (Oxycodone) 05/01/2024 Anticoagulation (warfarin) [address] [phone] 1, [facility] Anticoagulation (Acelis) 04/29/2024 Refill [facility] [address] [place] [address] Franklin Squires MD Refill Request (Duloxetine, Donepezil) 04/24/2024 2:49 PM CDT - 04/24/2024 2:50 PM CDT Emergency [facility] [address] [facility] [place] [address] Discharge Disposition: Against Medical Advice or Discontinued Care 04/24/2024 Travel 04/24/2024 Anticoagulation (warfarin) [address] [phone] 1, [facility] Anticoagulation (Acelis) 04/21/[address] [phone] Franklin Squires MD Refill Request (Gabapentin) 04/20/[address] [phone] Franklin Squires MD Form (Physician Orders. Urinary Catheter - Suprapubic. ) 04/20/[address] [phone] Franklin Squires MD Refill Request (Gabapentin 400 mg) 04/13/[address] [phone] Franklin Squires MD Form (Standard Written Order: Rehab Accessories. Cushion, Quadtro Select HI PRO 20x20 or 11x11 CELL) 04/07/2024 Anticoagulation (warfarin) [address] [phone] 1, [facility] Anticoagulation (acelis) 04/07/[address] [address] Franklin Squires MD Form (Physician Orders) 04/03/2024 2:30 PM CDT Office Visit [address] [phone] Franklin Squires MD Follow Up (6 week follow up) 04/03/2024 Travel 04/02/[address] [place] [address] Franklin Squires MD Refill Request (Oxycodone) 03/28/2024 Refill [facility] [address] [facility] [place] [address] Franklin Squires MD Refill Request (Furosemide) 03/20/2024 4:32 PM CDT - 03/20/2024 8:34 PM CDT [facility] [address] [facility] [place] [place] [address] Quan Corbett PA Suprapubic catheter dysfunction, initial encounter (HC) (Primary Dx) Discharge Disposition: Home Self Care 03/20/2024 Travel 03/20/2024 Telephone [facility] [address] [facility] [place] [address] Franklin Squires MD other (FYI / UPDATE ) 03/19/2024 Anticoagulation (warfarin) [address] [phone] 1, [facility] Anticoagulation (acelis) 03/13/2024 2:10 PM CDT Orders Only [facility] [address] [place] [address] Lab, [facility] 03/13/2024 Travel 03/10/[address] [phone] Franklin Squires MD Form (Home Health Certification and Plan of Care. ) 03/10/[address] [address] Franklin Squires MD Form (60 day summary report. SNV 2x/wk for wound care.) 03/05/2024 Anticoagulation (warfarin) [address] [phone] 1, [facility] Anticoagulation (Acelis) 03/02/[address] [address] Gabrielle Prado PA Refill Request (Oxycodone) 03/02/[address] [phone] Franklin Squires MD Refill Request (Lorazepam) 02/24/2024 Patient Outreach [facility] Care Management - Advanced Care Team [address] [place] [address] Archana Wright RN Complex Care Management (ACO outreach engagement ) 02/24/[address] [phone] Franklin Squires MD Form (Physician Orders. Medication order: Lorazapam 0.5 mg; oral tablet. Amoxicillin- clavulanate 875mg) 02/24/[address] [address] Franklin Squires MD Refill Request (LORazepam (ATIVAN) 0.5 mg tab) from Last 3 Months Immunizations Name Administration Dates Next Due COVID-19 vaccine (Pfizer-Bio NTech 30mcg/0.3mL) 12YO+ BIVALENT PF, MDV 10/22/2022 COVID-19 vaccine (collegefeed-Bio NTech 30mcg/0.3mL) PF, MDV 01/25/2021,01/02/2021 Influenza A [...] Description 07/02/2024 1:30 PM CDT Office Visit [facility] [address] [place] [address] Franklin Squires MD [address] [place] [address] Health Maintenance Due Date Last Done Comments [...] Associated Diagnosis Comments HOME MONITOR AC Routine 05/20/2024 12:00 AM CDT HOME MONITOR AC Routine 05/13/2024 12:00 AM CDT HOME MONITOR AC Routine 05/06/2024 12:00 AM CDT HOME MONITOR AC Routine 05/01/2024 12:00 AM CDT HOME MONITOR AC Routine 04/24/2024 12:00 AM CDT HOME MONITOR AC Routine 04/07/2024 12:00 AM CDT BLADDER CATHETERIZATION Routine 03/20/20 7:52 PM CDT AEROBIC BACTERIAL CULTURE, STAIN [...] MONITOR AC Routine 03/05/2024 12:00 AM CDT from Last 3 Months Results * HOME MONITOR AC (05/20/2024 12:00 AM CDT) Only the most recent of8 resultswithin the time period is included. PATIENT REPORTED HOME INR 2.1 2.00 - 3.00 [facility] 05/20/2024 Franklin Squires MD OTHER [facility] [address] [place] [address] * BLADDER CATHETERIZATION (03/20/2024 7:52 PM [...] ?Risks discussed: ??Pain, incomplete procedure and infection White protocol: ??Procedure explained and questions answered to [...] CDT) CULTURE RESULT(A) 03/28/2024 11:28 AM CDT [facility] CULTURE 2+ Klebsiella pneumoniae 03/28/2024 11:28 AM CDT [facility] CULTURE 2+ Pseudomonas aeruginosa 03/28/2024 11:28 AM CDT [facility] CULTURE 2+ Staphylococcus aureus 03/28/2024 11:28 AM CDT [facility] Comment:Isolate is MRSA (Met hicillin-resistant Staph aureus). CULTURE 2+ Mixed brigette present 03/28/2024 11:28 AM CDT [facility] GRAM STAIN No PMNs 03/28/2024 11:28 AM CDT [facility] GRAM STAIN No Epithelial cells 03/28/2024 11:28 AM CDT [facility] GRAM STAIN No RBCs 03/28/2024 11:28 AM CDT [facility] GRAM STAIN 4+ Gram Negative Bacilli 03/28/2024 11:28 AM CDT [facility] GRAM STAIN 2+ Gram Positive Cocci 03/28/2024 11:28 AM CDT [facility] Other SPECIMEN FROM PENIS / Unknown Non-Blood / Unknown 03/20/2024 5:01 PM CDT 03/20/2024 5:05 PM CDT [facility] - 03/28/2024 11:28 AM CDT Mixed [...] TRIMETHOPRIM/SULF <=0.5/9.5: S Quan RAMSEY MICROBIOLOG Y [facility] [address] [place] [address], * (ABNORMAL) CBC WITH AUTO DIFFERENTIAL (03/20/2024 4:58 PM CDT) [facility] WHITE BLOOD COUNT 10.9 4.5 - 11.0 thou/cu mm 03/20/2024 5:06 PM T [facility] RED BLOOD COUNT 4.92 4.30 - 5.90 mil/cu mm 03/20/2024 5:06 PM T [facility] HEMOGLOBIN 12.7(L) 13.5 - 17.5 g/dL 03/20/2024 5:06 PM [facility] HEMATOCRIT 40.0 37.0 - 53.0 % 03/20/2024 5:06 PM [facility] MCV 81 80 - 100 fL 03/20/2024 5:06 PM [facility] MCH 25.8(L) 26.0 - 34.0 pg 03/20/2024 5:06 PM [facility] MCHC 31.8(L) 32.0 - 36.0 g/dL 03/20/2024 5:06 PM [facility] RDW 18.1(H) 11.5 - 15.5 % 03/20/2024 5:06 PM [facility] PLATELET COUNT 263 140 - 440 thou/cu mm 03/20/2024 5:06 PM [facility] MPV 9.4 6.5 - 11.0 fL 03/20/2024 5:06 PM [facility] % NEUT 68.4 % 03/20/2024 5:06 PM [facility] % LYMPH 20.1 % 03/20/2024 5:06 PM [facility] % MONO 8.4 % 03/20/2024 5:06 PM [facility] % EOS 2.8 % 03/20/2024 5:06 PM [facility] % BASO 0.3 % 03/20/2024 5:06 PM [facility] ABSOLUTE NEUTROPHILS 7.4(H) 1.7 - 7.0 thou/cu mm 03/20/2024 5:06 PM [facility] ABSOLUTE LYMPHOCYTES 2.2 0.9 - 2.9 thou/cu mm 03/20/2024 5:06 PM [facility] ABSOLUTE MONOCYTES 0.9(H) <0.9 thou/cu mm 03/20/2024 5:06 PM [facility] ABSOLUTE EOSINOPHILS 0.3 <0.5 thou/cu mm 03/20/2024 5:06 PM [facility] ABSOLUTE BASOPHILS 0.0 <0.3 thou/cu mm 03/20/2024 5:06 PM [facility] Blood BLOOD SPECIMEN / Unknown Butterfly / Unknown 03/20/2024 4:58 PM CDT 03/20/2024 5:02 PM CDT Quan RAMSEY HEMATOLOGY [facility] [address] [place] [address] * LACTATE VENOUS (03/20/2024 4:58 PM CDT) [facility] Signature LACTATE,VENOUS 1.3 0.5 - 2.0 mmol/L 03/20/2024 5:21 PM [facility] Blood BLOOD SPECIMEN / Unknown Butterfly / Unknown 03/20/2024 4:58 PM CDT 03/20/2024 5:02 PM CDT Quan RAMSEY CHEMISTRY [facility] [address] [place] [address] * (ABNORMAL) BASIC METABOLIC PANEL (03/20/2024 4:58 PM CDT) SODIUM 139 136 - 145 mmol/L 03/20/2024 5:22 PM [facility] POTASSIUM 4.5 3.5 - 5.1 mmol/L 03/20/2024 5:22 PM [facility] CHLORIDE 100 98 - 107 mmol/L 03/20/2024 5:22 PM [facility] CO2,TOTAL 29 22 - 29 mmol/L 03/20/2024 5:22 PM [facility] ANION GAP 10 5 - 18 03/20/2024 5:22 PM [facility] GLUCOSE 115(H) 70 - 99 mg/dL 03/20/2024 5:22 PM [facility] CALCIUM 9.4 8.8 - 10.2 mg/dL 03/20/2024 5:22 PM [facility] BUN 21 8 - 23 mg/dL 03/20/2024 5:22 PM [facility] CREATININE 0.63(L) 0.70 - 1.20 mg/dL 03/20/2024 5:22 PM [facility] BUN/CREAT RATIO 33(H) 10 - 20 5:22 PM [facility] eGFR >90 >90 mL/min/1.7 3m2 03/20/2024 5:22 PM [facility] Comment:As of 2022, eG FR [...] [facility]/ZIP Co de Phone Number [facility] [address] [place] [address] * (ABNORMAL) URINALYSIS MICROSCOPIC (03/13/2024 11:04 AM CDT) RBC 0-2 0-2, None Seen /HPF 03/13/2024 2:26 PM CDT [facility] WBC 6-10(A) 0-2, 3-5, None Seen /HPF 03/13/2024 2:26 PM CDT [facility] BACTERIA Few None Seen, Rare, Few Bacteria/ HPF 03/13/2024 2:26 PM CDT [facility] EPITHELIAL CELLS Few None Seen, Few Epi/HPF 03/13/2024 2:26 PM CDT [facility] WHITE CELL CLUMPS Present(A) (none) 03/13/2024 2:26 PM CDT [facility] Urine URINE SPECIMEN / Unknown Non-Blood / Unknown 03/13/2024 11:04 AM CDT 03/13/2024 1:37 PM CDT Franklin Squires MD URINE Performing Organization Address City/[facility]/ZIP Co de Phone Number [facility] [address] [place] [address] * (ABNORMAL) URINE CULTURE (03/13/2024 11:04 AM CDT) CULTURE RESULT(A) 03/16/2024 9:13 AM CDT [facility]TRAL LAB[facility]AT[facility] CULTURE >100,000 CFU/mL Pseudomonas aeruginosa 03/16/2024 9:13 AM CDT [facility] CULTURE 50,000-100,000 CFU/mL Staphylococcus aureus 03/16/2024 9:13 AM CDT [facility] CULTURE 10,000-50,000 CFU/mL Enterobacter cloacae complex 03/16/2024 9:13 AM CDT [facility] Comment: May develop resistance during prolonged [...] AM CDT 03/13/2024 1:[address] [facility] - 03/16/2024 9:13 AM CDT May represent colonization. No further workup pending. Franklin Squires MD MICROBIOLOGY [facility] [address] [place] [address], * (ABNORMAL) UA W/ SEDIMENT EXAM REFLEXED PER CRITERIA (03/13/2024 11:04 AM CDT) COLOR Yellow Yellow Color 03/13/2024 2:24 PM [facility] CLARITY Clear Clear Clarity 03/13/2024 2:24 PM [facility] SPECIFIC GRAVITY,URINE <=1.005(A) 1.010, 1.015, 1.020, 1.025 03/13/2024 2:24 PM [facility] PH,URINE 6.5 6.0, 7.0, 8.0, 5.5, 6.5, 7.5, 8.5 03/13/2024 2:24 PM [facility] UROBILINOGEN, QUALITATIVE Normal Normal EU/dl 03/13/2024 2:24 PM [facility] PROTEIN, URINE Negative Negative mg/dL 03/13/2024 2:24 PM CDT [facility] GLUCOSE, URINE Negative Negative mg/dL 03/13/2024 2:24 PM CDT [facility] KETONES,URINE Negative Negative mg/dL 03/13/2024 2:24 PM CDT [facility] BILIRUBIN,URI NE Negative Negative 03/13/2024 2:24 PM CDT [facility] OCCULT BLOOD,URINE Moderate(A) Negative 03/13/2024 2:24 PM CDT [facility] NITRITE Negative Negative 03/13/2024 2:24 PM CDT [facility] LEUKOCYTE ESTERASE Moderate(A) Negative 03/13/2024 2:24 PM CDT [facility] Urine URINE SPECIMEN / Unknown Non-Blood / Unknown 03/13/2024 11:04 AM CDT 03/13/2024 1:37 PM CDT Franklin Squires MD URINE Performing Organization Address City/State/[facility] Co de Phone Number [facility] [address] [place] [address] from Last 3 Months Additional Health Concerns [...] months since positive culture): 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 billing 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 care, receiving hemodialysis, has chronic open wounds/skin damage, has long-term percutaneous indwelling medical devices Exclusions for nares collection (if <12 months since positive culture) include all of the previous exclusions plus patients on antibiotics 7 days prior to collection 03/13/2018 03/20/2024 Advance Directives Documents on File Type Date Recorded Patient Health Science Instructor Expl anation Healthcare Directive 05/09/2023 023 Healthcare [...] Code Status Discussion: Reviewed Preferences Care Teams Paper Production Engineer Relationship Specialty Start Date End Date Franklin Squires MD [address] [place] [address] PCP - General Family Practice 10/18/15 Zelalem Cohen MD Physical Therapist 03/13/12 May Randle Md, MD Physical Medicine and Rehabilitation 03/13/12 Luana, FAUSTINO Krueger [address] [place] [address] Vehicle Body Sander 05/03/17 Diane Charles MD [address] [place] [address] Surgery - Urology 01/17/23 Julia Ware, RN [address] [place] [address] Registered Nurse 07/17/23
--- OUTSIDE RECORDS SUMMARY | 2024-05-25 12:50 | XMS_ITS | Continuity of Care Document ---
Author Name [facility] Organization [facility] Care Team Providers Care Assistant Spa Director Name Role Phone [facility] Unavailable Unavailable Problems Combined list of problems from 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 It does not include entries that were removed or entered in error. Problem Status Onset Date Problem Type Date of Resolution Comments Source Abnormal liver function Active Condition [facility] Anemia (SCT 819002227) Active Condition [facility] Anxiety ([facility] [place] 41870044) Active Condition [facility] Autonomic dysreflexia Active Condition [facility] Chronic Pain Syndrome (SCT 881192607) Active Condition [facility] Colostomy present Active Condition [facility] Constipation (SCT 71257871) Active Condition [facility] Continuous opioid dependence Active Condition [facility] COPD - Chronic Obstructive Pulmonary Disease (SCT 80065495) Active Condition [facility] Dementia Active Condition [facility] Depression (S[facility] 68999563) Active Condition [facility] Diabetes Mellitus Type 2 (SCT 96331541) Active Condition [facility] Ependymoma of spinal cord Active Condition [facility] Hearing Loss (SCT 10717909) Active Condition [facility] History of Deep Vein Thrombosis (SCT 174603887) Active Condition [facility] History of pressure injury Active Condition [facility] HTN - Hypertension (SCT 19803193) Active Condition [facility] Hyperlipidemia (SCT 90040320) Active Condition [facility] Hyponatremia Active Condition [facility] Long-term current use of anticoagulant Active Condition [facility] Neurogenic Bladder (SCT 424667139) Active Condition [facility] Neurogenic bowel Active Condition [facility] Osteoporosis ([facility] [place] 77906839) Active Condition [facility] Paraplegia Active Condition [facility] Spasticity Active Condition [facility] Suprapubic urinary catheter in situ Active Condition [facility] Supraventricular tachycardia Active Condition [facility] Tinnitus ([facility] [place] 62581456) Active Condition [facility] Vitamin D Deficiency ([facility] [place] 1193065) Active Condition [facility] Diagnosis: ICD-10-CM Z73.6 Limitation of activities due to disability Active Diagnosis [facility] Diagnosis: ICD-10-CM G82.20 Paraplegia, unspecified Active Diagnosis [facility] Diagnosis: ICD-10-CM Z43.3 Encounter for attention to colostomy Active Diagnosis [facility] Diagnosis: ICD-10-CM Z71.3 Dietary counseling and surveillance Active Diagnosis [facility] Diagnosis: ICD-10-CM F32.A Depression, unspecified Active Diagnosis [facility] Medications Combined list of outpatient medications from Department of Defense and [facility] Affairs facilities.Medications provided include 1) outpatient [...] ed by: PIPO BARRETT Document ed at: [facility] ORAL ACTIVE Jagdish BARRETT 2022 [facility] AMLODIPINE BESYLATE (AMLODIPINE BESYLATE), 5 MG, TABLET, ORAL, [employer] 1000 ea. BOTTLE Active [id number] 4 2023 90 Pharmac y Data Transac tion Service Facilit y AMLODIPINE BESYLATE (amlodipine besylate), 5 MG, TABLET, ORAL, [employer], 1000 ea. BOTTLE Active [id number] 2023 90 Pharmac y Data Transac tion Service Facilit y AMLODIPINE BESYLATE 2.5MG TAB AMLODIPI NE BESYLATE 2.5MG TAB Non-VA TAKE TWO TABLETS BY MOUTH EVERY MORNING Feb 05, 2023 Non-[place] Document ed by: PIPO BARRETT Document ed at: [facility] ORAL ACTIVE Jagdish BARRETT 2022 [facility] AMOX TR-POTASSIU M CLAVULANATE (AMOXICILLI N/POTASSIUM CLAV), 875-125 MG, TABLET, ORAL, [employer]EVA [place], 20 ea. BOTTLE Active [id number] 2022 14 Pharmac y Data Transac tion Service Facilit y AMOXICILLIN -CLAVULANAT E POTASS (amoxicilli n/potassium clavulanate ), 875-125 MG, TABLET, ORAL, [employer] [place],, 20 ea. BOTTLE Active [id number] 2023 20 Pharmac y Data Transac tion Service Facilit y AMOXICILLIN -CLAVULANAT E POTASS (amoxicilli n/potassium clavulanate ), 875-125 MG, TABLET, ORAL, [employer] [place],, 20 ea. BOTTLE Active [id number] 2023 56 Pharmac y Data Transac tion Service Facilit y ARIPIPRAZOL E (aripiprazo le), 2 MG, TABLET, ORAL, XLCARE PHARMACE, 500 ea. BOTTLE Active [id number] 2023 180 Pharmac y Data Transac tion Service Facilit y ARIPIPRAZOL E (aripiprazo le), 2 MG, TABLET, ORAL, XLC[employer] PHARMACE, 500 ea. BOTTLE Active [id number] 2023 180 Pharmac y Data Transac tion Service Facilit y ARIPIPRAZOL E TAB ARIPIPRA ZOLE TAB Non-VA TAKE 2MG BY MOUTH TWICE A DAY May 29, 2022 Non-VA Document ed by: SHANTAL HANSON Document ed at: [facility] ORAL ACTIVE Jey HANSON 2021 [facility] ATIVAN (LORAZEPAM) , 0.5 MG, TABLET, ORAL, VALEANT, 100 ea. BOTTLE Active [id number] 2023 120 Pharmac y Data Transac [...] BIOCON PHARMA I, 1000 ea. BOTTLE Active [id number] 2023 90 Pharmac y Data Transac tion Service Facilit y ATORVASTATI N CALCIUM (atorvastat in calcium), 40 MG, TABLET, ORAL, BIOCON PHARMA I, 1000 ea. BOTTLE Active [id number] 2023 90 Pharmac y Data Transac tion Service Facilit y BACLOFEN (baclofen), 20 MG, TABLET, ORAL, MARLEX PHARM., 1000 ea. BOTTLE Active [id number] 2023 540 Pharmac y Data Transac tion Service Facilit y BACLOFEN (baclofen), 20 MG, TABLET, ORAL, MARLEX PHARM., 1000 ea. BOTTLE Active [id number] 2023 540 Pharmac y Data Transac tion Service Facilit y BACLOFEN 20MG TAB BACLOFEN 20MG TAB Non-VA TAKE TWO TABLETS BY MOUTH THREE TIMES A DAY Feb 05, 2023 Non-VA Document ed by: PIPO BARRETT Document ed at: [facility] ORAL ACTIVE Jagdish BARRETT 2022 [facility] BUPROPION HCL 150MG 12HR TAB,SA BUPROPIO N HCL 150MG 12HR TAB,SA Non-VA TAKE ONE TABLET BY MOUTH TWICE A DAY May 29, 2022 Non-VA Document ed by: SHANTAL HANSON Document ed at: [facility] ORAL ACTIVE Jey HANSON 2021 [facility] BUPROPION HCL SR (bupropion HCl), 150 MG, TAB SR 12H, ORAL, PAVEL PHARMACEU, 60 ea. BOTTLE Active [id number] 2023 180 Pharmac y Data Transac tion Service Facilit y BUPROPION HCL SR (bupropion HCl), 150 MG, TAB SR 12H, ORAL, PAVEL PHARMACEU, 60 ea. BOTTLE Active [id number] 2023 180 Pharmac y Data Transac [...] ORAL, AUROBINDO PHARM, 50 ea. BOTTLE Active [id number] 2023 70 Pharmac y Data Transac tion Service Facilit y DONEPEZIL HCL (DONEPEZIL HCL), 5 MG, TABLET, ORAL, [employer] 1000 ea. BOTTLE Active [id number] 2023 90 Pharmac y Data Transac tion Service Facilit y DONEPEZIL HCL (DONEPEZIL HCL), 5 MG, TABLET, ORAL, [employer] 1000 ea. BOTTLE Cancele d [id number] : 2023 0 Pharmac y Data Transac tion Service Facilit y DONEPEZIL HCL (DONEPEZIL HCL), 5 MG, TABLET, ORAL, [employer] 1000 ea. BOTTLE Active [id number] 2023 90 Pharmac y Data Transac tion Service Facilit y DONEPEZIL HCL 10MG TAB DONEPEZI L HCL 10MG TAB Non-VA TAKE ONE-HALF TABLET BY MOUTH EVERY DAY May 29, 2022 Non-VA Document ed by: SHANTAL HANSON Document ed at: [facility] ORAL ACTIVE Jey HANSON 2021 [facility] DULOXETINE HCL (duloxetine HCl), 60 MG, CAPSULE DR, ORAL, [employer] 1000 ea. BOTTLE Active [id number] 2023 180 Pharmac y Data Transac tion Service Facilit y DULOXETINE HCL (duloxetine HCl), 60 MG, CAPSULE DR, ORAL, [employer] 1000 ea. BOTTLE Active [id number] 2023 180 Pharmac y Data Transac tion Service Facilit y DULOXETINE HCL 30MG CAP,EC DULOXETI NE HCL 30MG CAP,EC Non-VA TAKE 2 CAPSULES BY MOUTH TWICE A DAY May 29, 2022 Non-VA Document ed by: SHANTAL HANSON Document ed at: [facility] ORAL ACTIVE Jey HANSON 2021 [facility] FAMOTIDINE (famotidine ), 20 MG, TABLET, ORAL, [employer], 1000 ea. BOTTLE Active [id number] 2023 180 Pharmac y Data Transac tion Service Facilit y FAMOTIDINE 20MG TAB FAMOTIDI NE 20MG TAB Non-VA TAKE ONE TABLET BY MOUTH TWICE A DAY May 29, 2022 Non-VA Document ed by: SHANTAL HANSON Document ed at: [facility] ORAL ACTIVE Jey HANSON 2021 [facility] FUROSEMIDE (furosemide ), 40 MG, TABLET, ORAL, [employer], 1000 ea. BOTTLE Active [id number] 2023 180 Pharmac y Data Transac tion Service Facilit y FUROSEMIDE 40MG TAB FUROSEMI DE 40MG TAB Non-VA TAKE ONE TABLET BY MOUTH TWICE A DAY May 29, 2022 Non-VA Document ed by: SHANTAL HANSON Document ed at: [facility] ORAL ACTIVE Jey HANSON 2021 [facility] GABAPENTIN (gabapentin ), 400 MG, CAPSULE, ORAL, [employer] 500 ea. BOTTLE Active [id number] 2023 270 Pharmac y Data Transac tion Service Facilit y GABAPENTIN (gabapentin ), 400 MG, CAPSULE, ORAL, SCIEGEN PHARMAC, 500 ea. BOTTLE Active [id number] 2023 270 Pharmac y Data Transac tion Service Facilit y GABAPENTIN (gabapentin ), 400 MG, CAPSULE, ORAL, XLCARE PHARMACE, 500 ea. BOTTLE Cancele d [id number] : 2023 0 Pharmac y Data Transac [...] ORAL, AUROBINDO PHARM, 500 ea. BOTTLE Active [id number] 2023 120 Pharmac y Data Transac tion Service Facilit y LORAZEPAM (lorazepam) , 0.5 MG, TABLET, ORAL, LEADING PHARMA, 1000 ea. BOTTLE Active [id number] 2023 120 Pharmac y Data Transac tion Service Facilit y LORAZEPAM (lorazepam) , 0.5 MG, TABLET, ORAL, LEADING PHARMA, 1000 ea. BOTTLE Active [id number] 2023 120 Pharmac y Data Transac tion Service Facilit y LORAZEPAM (lorazepam) , 0.5 MG, TABLET, ORAL, LEADING PHARMA, 1000 ea. BOTTLE Active [id number] 2023 120 Pharmac y Data Transac tion Service Facilit y LORAZEPAM (lorazepam) , 0.5 MG, TABLET, ORAL, LEADING PHARMA, 500 ea. BOTTLE Active [id number] 2023 120 Pharmac y Data Transac tion Service Facilit y LORAZEPAM 0.5MG TAB LORAZEPA M 0.5MG TAB Non-VA TAKE ONE TABLET BY MOUTH THREE TIMES A DAY AND TAKE TWO TABLETS BY MOUTH AT BEDTIME Feb 05, 2023 Non-VA Document ed by: PIPO BARRETT Document ed at: [facility] [facility] ORAL ACTIVE Jagdish BARRETT 2022 [facility] [employer] Non-VA [...] ed by: PIPO BARRETT Document ed at: [facility] NASAL ACTIVE Jagdish BARRETT 2022 [facility] OXYCODONE HCL (OXYCODONE HCL), 10 MG, TABLET, ORAL, [employer] 100 ea. BOTTLE Active [id number] 2023 120 Pharmac y Data Transac tion Service Facilit y OXYCODONE HCL (OXYCODONE HCL), 10 MG, TABLET, ORAL, [employer] 100 ea. BOTTLE Active [id number] 2023 120 Pharmac y Data Transac tion Service Facilit y OXYCODONE HCL (OXYCODONE HCL), 10 MG, TABLET, ORAL, [employer] 100 ea. BOTTLE Active [id number] 2023 120 Pharmac y Data Transac tion Service Facilit y OXYCODONE HCL (OXYCODONE HCL), 10 MG, TABLET, ORAL, [employer] 100 ea. BOTTLE Active [id number] 2023 120 Pharmac y Data Transac tion Service Facilit y OXYCODONE HCL (OXYCODONE HCL), 10 MG, TABLET, ORAL, [employer] 100 ea. BOTTLE Active [id number] 2023 120 Pharmac y Data Transac tion Service Facilit y OXYCODONE HCL (OXYCODONE HCL), 10 MG, TABLET, ORAL, [employer] 100 ea. BOTTLE Active [id number] 2023 120 Pharmac y Data Transac tion Service Facilit y OXYCODONE HCL (OXYCODONE HCL), 10 MG, TABLET, ORAL, [employer]AD [employer] 100 ea. BOTTLE Active [id number] 2022 120 Pharmac y Data Transac tion Service Facilit y OXYCODONE HCL 5MG TAB OXYCODON E HCL 5MG TAB Non-VA TAKE TWO TABLETS BY MOUTH FOUR TIMES A DAY Feb 05, 2023 Non-VA Document ed by: PIPO BARRETT Document ed at[facility] Jagdish BARRETT 2022 [facility] POTASSIUM CHLORIDE (potassium chloride), 10 MEQ, TAB ER PRT, ORAL, XLCARE PHARMACE, 100 ea. BOTTLE Active [id number] 2023 180 Pharmac y Data Transac tion Service Facilit y POTASSIUM CHLORIDE (potassium chloride), 10 MEQ, TAB ER PRT, ORAL, XLC[employer] PHARMACE, 100 ea. BOTTLE Active [id number] 2023 180 Pharmac y Data Transac tion Service Facilit y POTASSIUM CHLORIDE (potassium chloride), 20 MEQ, TAB ER PRT, ORAL, XLCARE PHARMACE, 100 ea. BOTTLE Active [id number] 2023 90 Pharmac y Data Transac [...] WHITLOCK&N/UNI LUIS, 30 g TUBE Cancele d [id number] : 2023 0 Pharmac y Data Transac tion Service Facilit y WARFARIN SODIUM (warfarin sodium), 5 MG, TABLET, ORAL, [employer] 1000 ea. BOTTLE Cancele d [id number] : 2022 0 Pharmac y Data Transac tion Service Facilit y WARFARIN SODIUM (WARFARIN SODIUM), 5 MG, TABLET, ORAL, [employer] [place], 1000 ea. BOTTLE Active [id number] 2023 25 Pharmac y Data Transac tion Service Facilit y WARFARIN SODIUM (WARFARIN SODIUM), 5 MG, TABLET, ORAL, [employer] [place], 1000 ea. BOTTLE Active [id number] 2023 12 Pharmac y Data Transac tion Service Facilit y WARFARIN SODIUM (WARFARIN SODIUM), 5 MG, TABLET, ORAL, [employer] [place], 1000 ea. BOTTLE Active [id number] 2023 40 Pharmac y Data Transac tion Service Facilit y WARFARIN SODIUM (WARFARIN SODIUM), 5 MG, TABLET, ORAL, [employer] [place], 1000 ea. BOTTLE Cancele d [id number] : 2022 0 Pharmac y Data Transac tion Service Facilit y WARFARIN SODIUM (warfarin sodium), 7.5 MG, TABLET, ORAL, [employer] [place], 100 ea. BOTTLE Active [id number] 2023 51 Pharmac y Data Transac tion Service Facilit y WARFARIN SODIUM (warfarin sodium), 7.5 MG, TABLET, ORAL, [employer]EV[employer] [place], 100 ea. BOTTLE Active [id number] 2023 78 Pharmac y Data Transac tion Service Facilit y WARFARIN TAB WARFARIN TAB Non-VA TAKE 5MG BY MOUTH SUN/THUR S AND TAKE 7.5MG BY MOUTH ALL OTHER DAYS Feb 05, 2023 Non-VA Document ed by: PIPO BARRETT Document ed at: [facility] ORAL ACTIVE Jagdish BARRETT 2022 [facility] Allergies, Adverse Reactions, Alerts Combined list of allergies from 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 It does not include entries that were removed or entered in error. Substance Category Reaction Severity Reaction type Status Date Reported Comments Source AMOXICILLIN Propensity to adverse reactions to drug (finding) Eruption active 2 [facility] METOLAZONE Propensity to adverse reactions to drug (finding) Itching active 2 [facility] MORPHINE Propensity to adverse reactions to drug (finding) Delirium active 2 [facility] PIPERACILLIN Propensity to adverse reactions to drug (finding) Eruption active 2 [facility] SULFA DRUGS Propensity to adverse reactions to drug (finding) Eruption active 2 [facility] TAZOBACTAM SODIUM Propensity to adverse reactions to drug (finding) Eruption active 2 [facility] Immunizations Combined list of available immunizations from the 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 Immunization Series Date Given Administered By Site Reaction Lot Number CVX Code Drug Wort Extractor Status Comments Source COVID-19 ([employer]), MRNA, LNP-S, BIVALENT, PF, 30 MCG/0.3 ML DOSE 2021 300 complet ed [facility] INFLUENZA, ADJUVANTED, QUADRIVALENT, PF 2021 205 complet ed [facility] INFLUENZA, UNSPECIFIED FORMULATION 2021 88 complet ed Scott's recall [facility] TD (ADULT), 5 LF TETANUS TOXOID, PRESERVATIVE FREE, ADSORBED 2021 113 complet ed [facility] INFLUENZA, ADJUVANTED, QUADRIVALENT, PF 2020 205 complet ed [facility] INFLUENZA, UNSPECIFIED FORMULATION 2020 88 complet ed [facility] COVID-19 ([employer]Bio), MRNA, LNP-S, PF, 30 MCG/0.3 ML DOSE 3 2020 208 complet ed [facility] COVID-19 ([employer]), MRNA, LNP-S, PF, 30 MCG/0.3 ML DOSE 2 2020 208 complet ed [facility] COVID-19 (PFIZER), MRNA, LNP-S, PF, 30 MCG/0.3 ML DOSE 1 2020 208 complet ed [facility] INFLUENZA, ADJUVANTED, QUADRIVALENT, PF 2019 205 complet ed [facility] INFLUENZA, ADJUVANTED, TRIVALENT, PF 2018 168 complet ed [facility] INFLUENZA, ADJUVANTED, TRIVALENT, PF 2017 168 complet ed [facility] INFLUENZA, HIGH-DOSE, TRIVALENT, PF 2016 135 complet ed [facility] INFLUENZA, ADJUVANTED, TRIVALENT, PF 2016 168 complet ed [facility] INFLUENZA, HIGH-DOSE, TRIVALENT, PF 2015 135 complet ed [facility] ZOSTER LIVE 2015 121 complet ed [facility] PNEUMOCOCCAL CONJUGATE PCV [address] [facility] INFLUENZA, HIGH-DOSE, TRIVALENT, PF 2014 135 complet ed [facility] INFLUENZA, HIGH-DOSE, TRIVALENT, PF 2013 135 complet ed [facility] INFLUENZA, UNSPECIFIED FORMULATION 2013 88 complet ed [facility] INFLUENZA, SPLIT VIRUS, TRIVALENT, PRESERVATIVE 2012 141 complet ed [facility] ZOSTER LIVE [address] [facility] INFLUENZA, SPLIT VIRUS, TRIVALENT, PRESERVATIVE 2011 141 complet ed [facility] INFLUENZA, SPLIT VIRUS, TRIVALENT, PF 2010 140 complet ed [facility] PNEUMOCOCCAL POLYSACCHARID E PPV23 2010 33 complet ed [facility] TDAP [address] [facility] INFLUENZA, SPLIT VIRUS, TRIVALENT, PRESERVATIVE 2009 141 complet [facility] NOVEL INFLUENZA-H1N 1-09, ALL FORMULATIONS 2009 128 complet ed [facility] INFLUENZA, SPLIT VIRUS, TRIVALENT, PF 2008 140 complet ed [facility] PNEUMOCOCCAL POLYSACCHARID E PPV23 2008 33 complet ed [facility] INFLUENZA, SPLIT VIRUS, TRIVALENT, PRESERVATIVE 2008 141 complet ed [facility] INFLUENZA, SPLIT VIRUS, TRIVALENT, PRESERVATIVE 2007 141 complet ed [facility] INFLUENZA, SPLIT VIRUS, TRIVALENT, PRESERVATIVE 2005 141 complet ed [facility] INFLUENZA, SPLIT VIRUS, TRIVALENT, PRESERVATIVE 2004 141 complet ed [facility] PNEUMOCOCCAL POLYSACCHARID E PPV23 2004 33 complet ed [facility] INFLUENZA, SPLIT VIRUS, TRIVALENT, PRESERVATIVE 2003 141 complet ed [facility] Results Combined list of recent chemistry, hematology [...] Feb 05, 2023 03:10 PM Reporting Lab: [facility] [address] Performing Lab: [facility] [address] [place] [facility] CYSTATIN C WITH EGFR CYSTATIN C AND GLOMERULAR FILTRATION RATE BY CYSTATIN C-BASED FORMULA PANEL - SERUM OR PLASMA 53 60 02/13 L Specimen Type: PLASMA No comment entered. Ordering Provider: ANKUSH BOWMAN Report Released Date/Time: Feb 05, 2023 03:10 PM Reporting Lab: [facility] [address] Performing Lab: [facility] [address] [place] [facility] BASIC METABOLI C PANEL+MG CREATININE [MASS/VOLU ME] IN SERUM OR PLASMA 0.7 mg/dL 0.7 - 1.2 02/13 Specimen Type: PLASMA No comment entered. Ordering Provider: ANKUSH BOWMAN Report Released Date/Time: Feb 05, 2023 03:10 PM Reporting Lab: [facility] [address] Performing Lab: [facility] [address] [place] [facility] BASIC METABOLI C PANEL+MG UREA NITROGEN [MASS/VOLU ME] IN SERUM OR PLASMA 15 mg/dL 8 - 02/13 Specimen Type: PLASMA No comment entered. Ordering Provider: ANKUSH BOWMAN Report Released Date/Time: Feb 05, 2023 03:10 PM Reporting Lab: [facility] [address] Performing Lab: [facility] [address] [place] [facility] BASIC METABOLI C PANEL+MG GLUCOSE [MASS/VOLU ME] IN SERUM OR PLASMA 140 mg/dL 70 - 100 02/13 H Specimen Type: PLASMA No comment entered. Ordering Provider: ANKUSH BOWMAN Report Released Date/Time: Feb 05, 2023 03:10 PM Reporting Lab: [facility] [address] Performing Lab: [facility] [address] [place] [facility] BASIC METABOLI C PANEL+MG SODIUM [MOLES/VOL UME] IN SERUM OR PLASMA 135 mmol/L 136 - 145 02/13 L Specimen Type: PLASMA No comment entered. Ordering Provider: ANKUSH BOWMAN Report Released Date/Time: Feb 05, 2023 03:10 PM Reporting Lab: [facility] [address] Performing Lab: [facility] [address] [place] [facility] BASIC METABOLI C PANEL+MG POTASSIUM [MOLES/VOL UME] IN SERUM OR PLASMA 4.0 mmol/L 3.5 - 5.1 02/13 Specimen Type: PLASMA No comment entered. Ordering Provider: ANKUSH BOWMAN Report Released Date/Time: Feb 05, 2023 03:10 PM Reporting Lab: [facility] [address] Performing Lab: [facility] [address] [place] [facility] BASIC METABOLI C PANEL+MG CHLORIDE [MOLES/VOL UME] IN SERUM OR PLASMA 99 mmol/L 98 - 107 02/13 Specimen Type: PLASMA No comment entered. Ordering Provider: ANKUSH BOWMAN Report Released Date/Time: Feb 05, 2023 03:10 PM Reporting Lab: [facility] [address] Performing Lab: [facility] [address] [place] [facility] BASIC METABOLI C PANEL+MG CARBON DIOXIDE, TOTAL [MOLES/VOL UME] IN SERUM OR PLASMA 29 mmol/L 22 - 29 02/13 Specimen Type: PLASMA No comment entered. Ordering Provider: ANKUSH BOWMAN Report Released Date/Time: Feb 05, 2023 03:10 PM Reporting Lab: [facility] [address] Performing Lab: [facility] [address] [place] [facility] BASIC METABOLI C PANEL+MG CALCIUM [MASS/VOLU ME] IN SERUM OR PLASMA 9.2 mg/dL 8.4 - 10.2 02/13 Specimen Type: PLASMA No comment entered. Ordering Provider: ANKUSH BOWMAN Report Released Date/Time: Feb 05, 2023 03:10 PM Reporting Lab: [facility] [address] Performing Lab: [facility] [address] [place] [facility] BASIC METABOLI C PANEL+MG MAGNESIUM [MASS/VOLU ME] IN SERUM OR PLASMA 2.0 mg/dL 1.6 - 2.6 02/13 Specimen Type: PLASMA No comment entered. Ordering Provider: ANKUSH BOWMAN Report Released Date/Time: Feb 05, 2023 03:10 PM Reporting Lab: [facility] [address] Performing Lab: [facility] [address] [place] [facility] BASIC METABOLI C PANEL+MG ANION GAP IN SERUM OR PLASMA 7 mmol/L 5 - 15 02/13 Specimen Type: PLASMA No comment entered. Ordering Provider: ANKUSH BOWMAN Report Released Date/Time: Feb 05, 2023 03:10 PM Reporting Lab: [facility] [address] Performing Lab: [facility] [address] [place] [facility] BASIC METABOLI C PANEL+MG GLOMERULAR FILTRATION RATE/1.73 SQ M.PREDICTE D [VOLUME RATE/AREA] IN SERUM, PLASMA OR BLOOD BY CREATININE -BASED FORMULA (CKD-EPI) >90 60 02/13 Specimen Type: PLASMA No comment entered. Ordering Provider: ANKUSH BOWMAN Report Released Date/Time: Feb 05, 2023 03:10 PM Reporting Lab: [facility] [address] Performing Lab: [facility] [address] [place] [facility] URINALYS IS COLOR OF URINE YELLOW 10/08 Specimen Type: URINE No comment entered. Ordering Provider: ANKUSH BOWMAN Report Released Date/Time: Sep 24, 2022 01:55 PM Reporting Lab: [facility] [address] Performing Lab: [facility] [address] [place] [facility] URINALYS IS SPECIFIC GRAVITY OF URINE 1.023 1.003 - 1.035 10/08 Specimen Type: URINE No comment entered. Ordering Provider: ANKUSH BOWMAN Report Released Date/Time: Sep 24, 2022 01:55 PM Reporting Lab: [facility] [id number] Performing Lab: [facility] [id number] [place] [facility] URINALYS IS BILIRUBIN. TOTAL [PRESENCE] IN URINE BY TEST STRIP NEGATIVE 10/08 Specimen Type: URINE No comment entered. Ordering Provider: ANKUSH BOWMAN Report Released Date/Time: Sep 24, 2022 01:55 PM Reporting Lab: [facility] [id number] Performing Lab: [facility] [id number] [place] [facility] URINALYS IS KETONES [MASS/VOLU ME] IN URINE BY TEST STRIP NEGATIVE 10/08 Specimen Type: URINE No comment entered. Ordering Provider: ANKUSH BOWMAN Report Released Date/Time: Sep 24, 2022 01:55 PM Reporting Lab: [facility] [address] Performing Lab: [facility] [address] [place] [facility] URINALYS IS GLUCOSE [MASS/VOLU ME] IN URINE BY TEST STRIP NEGATIVE mg/dL <30 - 30 10/08 Specimen Type: URINE No comment entered. Ordering Provider: ANKUSH BOWMAN Report Released Date/Time: Sep 24, 2022 01:55 PM Reporting Lab: [facility] [address] Performing Lab: [facility] [address] [place] [facility] URINALYS IS PROTEIN [MASS/VOLU ME] IN URINE BY TEST STRIP 30 mg/dL <20 - 20 10/08 Specimen Type: URINE No comment entered. Ordering Provider: ANKUSH BOWMAN Report Released Date/Time: Sep 24, 2022 01:55 PM Reporting Lab: [facility] [address] Performing Lab: [facility] [address] [place] [facility] URINALYS IS PH OF URINE BY TEST STRIP 7.5 5.0 - 8.0 10/08 Specimen Type: URINE No comment entered. Ordering Provider: ANKUSH BOWMAN Report Released Date/Time: Sep 24, 2022 01:55 PM Reporting Lab: [facility] [address] Performing Lab: [facility] [address] [place] [facility] URINALYS IS LEUKOCYTES [#/AREA] IN URINE SEDIMENT BY MICROSCOPY HIGH POWER FIELD >180/[HP F] 0 - 7 10/08 H Specimen Type: URINE No comment entered. Ordering Provider: ANKUSH BOWMAN Report Released Date/Time: Sep 24, 2022 01:55 PM Reporting Lab: [facility] [address] Performing Lab: [facility] [address] [place] [facility] URINALYS IS BACTERIA [PRESENCE] IN URINE SEDIMENT BY LIGHT MICROSCOPY MANY 10/08 Specimen Type: URINE No comment entered. Ordering Provider: ANKUSH BOWMAN Report Released Date/Time: Sep 24, 2022 01:55 PM Reporting Lab: [facility] [address] Performing Lab: [facility] [address] [place] [facility] URINALYS IS ERYTHROCYT ES [#/AREA] IN URINE SEDIMENT BY MICROSCOPY HIGH POWER FIELD 33 /[HPF] 0 - 3 10/08 H Specimen Type: URINE No comment entered. Ordering Provider: ANKUSH BOWMAN Report Released Date/Time: Sep 24, 2022 01:55 PM Reporting Lab: [facility] [address] Performing Lab: [facility] [address] [place] [facility] URINALYS IS APPEARANCE OF URINE EX.TURBI D 10/08 Specimen Type: URINE No comment entered. Ordering Provider: ANKUSH BOWMAN Report Released Date/Time: Sep 24, 2022 01:55 PM Reporting Lab: [facility] [address] Performing Lab: [facility] [address] [place] [facility] URINALYS IS EPITHELIAL CELLS.SQUA MOUS [#/AREA] IN URINE SEDIMENT BY MICROSCOPY HIGH POWER FIELD 1 /[HPF] 10/08 Specimen Type: URINE No comment entered. Ordering Provider: ANKUSH BOWMAN Report Released Date/Time: Sep 24, 2022 01:55 PM Reporting Lab: [facility] [address] Performing Lab: [facility] [address] [place] [facility] URINALYS IS HEMOGLOBIN [PRESENCE] IN URINE BY TEST STRIP 1+ 10/08 Specimen Type: URINE No comment entered. Ordering Provider: ANKUSH BOWMAN Report Released Date/Time: Sep 24, 2022 01:55 PM Reporting Lab: [facility] [address] Performing Lab: [facility] [address] [place] [facility] URINALYS IS NITRITE [PRESENCE] IN URINE BY TEST STRIP NEGATIVE 10/08 Specimen Type: URINE No comment entered. Ordering Provider: ANKUSH BOWMAN Report Released Date/Time: Sep 24, 2022 01:55 PM Reporting Lab: [facility] [address] Performing Lab: [facility] [address] [place] [facility] URINALYS IS LEUKOCYTE CLUMPS [#/VOLUME] IN URINE BY AUTOMATED COUNT PRESENT 10/08 Specimen Type: URINE No comment entered. Ordering Provider: ANKUSH BOWMAN Report Released Date/Time: Sep 24, 2022 01:55 PM Reporting Lab: [facility] [address] Performing Lab: [facility] [address] [place] [facility] URINALYS IS LEUKOCYTE ESTERASE [PRESENCE] IN URINE BY TEST STRIP 500 10/08 Specimen Type: URINE No comment entered. Ordering Provider: ANKUSH BOWMAN Report Released Date/Time: Sep 24, 2022 01:55 PM Reporting Lab: [facility] [address] Performing Lab: [facility] [address] [place] [facility] ALBUMIN ALBUMIN [MASS/VOLU ME] IN SERUM OR PLASMA 4.2 g/dL 3.5 - 5.2 10/08 Specimen Type: PLASMA No comment entered. Ordering Provider: ANKUSH BOWMAN Report Released Date/Time: Sep 24, 2022 01:55 PM Reporting Lab: [facility] [address] Performing Lab: [facility] [address] [place] [facility] PRE-ALBU MIN PREALBUMIN [MASS/VOLU ME] IN SERUM OR PLASMA 28.4 mg/dL 14.0 - 45.0 10/08 Specimen Type: SERUM No comment entered. Ordering Provider: ANKUSH BOWMAN Report Released Date/Time: Sep 24, 2022 01:55 PM Reporting Lab: [facility] [address] Performing Lab: [facility] [address] [place] [facility] COMPREHE NSIVE METABOLI C PANEL+MG CREATININE [MASS/VOLU ME] IN SERUM OR PLASMA 0.7 mg/dL 0.7 - 1.2 10/08 Specimen Type: PLASMA No comment entered. Ordering Provider: ANKUSH BOWMAN Report Released Date/Time: Sep 24, 2022 01:55 PM Reporting Lab: [facility] [address] Performing Lab: [facility] [address] [place] [facility] COMPREHE NSIVE METABOLI C PANEL+MG UREA NITROGEN [MASS/VOLU ME] IN SERUM OR PLASMA 16 mg/dL 8 - 26 10/08 Specimen Type: PLASMA No comment entered. Ordering Provider: NAKUSH BOWMAN Report Released Date/Time: Sep 24, 2022 01:55 PM Reporting Lab: [facility] [address] Performing Lab: [facility] [address] [place] [facility] COMPREHE NSIVE METABOLI C PANEL+MG GLUCOSE [MASS/VOLU ME] IN SERUM OR PLASMA 94 mg/dL 70 - 100 10/08 Specimen Type: PLASMA No comment entered. Ordering Provider: ANKUSH BOWMAN Report Released Date/Time: Sep 24, 2022 01:55 PM Reporting Lab: [facility] [address] Performing Lab: [facility] [address] [place] [facility] COMPREHE NSIVE METABOLI C PANEL+MG SODIUM [MOLES/VOL UME] IN SERUM OR PLASMA 138 mmol/L 136 - 145 10/08 Specimen Type: PLASMA No comment entered. Ordering Provider: ANKUSH BOWMAN Report Released Date/Time: Sep 24, 2022 01:55 PM Reporting Lab: [facility] [address] Performing Lab: [facility] [address] [place] [facility] COMPREHE NSIVE METABOLI C PANEL+MG POTASSIUM [MOLES/VOL UME] IN SERUM OR PLASMA 3.9 mmol/L 3.5 - 5.1 10/08 Specimen Type: PLASMA No comment entered. Ordering Provider: ANKUSH BOWMAN Report Released Date/Time: Sep 24, 2022 01:55 PM Reporting Lab: [facility] [address] Performing Lab: [facility] [address] [place] [facility] COMPREHE NSIVE METABOLI C PANEL+MG CHLORIDE [MOLES/VOL UME] IN SERUM OR PLASMA 101 mmol/L 98 - 107 10/08 Specimen Type: PLASMA No comment entered. Ordering Provider: ANKUSH BOWMAN Report Released Date/Time: Sep 24, 2022 01:55 PM Reporting Lab: [facility] [address] Performing Lab: [facility] [address] [place] [facility] COMPREHE NSIVE METABOLI C PANEL+MG CARBON DIOXIDE, TOTAL [MOLES/VOL UME] IN SERUM OR PLASMA 28 mmol/L 22 - 29 10/08 Specimen Type: PLASMA No comment entered. Ordering Provider: ANKUSH BOWMAN Report Released Date/Time: Sep 24, 2022 01:55 PM Reporting Lab: [facility] [address] Performing Lab: [facility] [address] [place] [facility] COMPREHE NSIVE METABOLI C PANEL+MG CALCIUM [MASS/VOLU ME] IN SERUM OR PLASMA 9.7 mg/dL 8.4 - 10.2 10/08 Specimen Type: PLASMA No comment entered. Ordering Provider: ANKUSH BOWMAN Report Released Date/Time: Sep 24, 2022 01:55 PM Reporting Lab: [facility] [address] Performing Lab: [facility] [address] [place] [facility] COMPREHE NSIVE METABOLI C PANEL+MG PROTEIN [MASS/VOLU ME] IN SERUM OR PLASMA 7.6 g/dL 6.0 - 8.3 10/08 Specimen Type: PLASMA No comment entered. Ordering Provider: ANKUSH BOWMAN Report Released Date/Time: Sep 24, 2022 01:55 PM Reporting Lab: [facility] [address] Performing Lab: [facility] [address] [place] [facility] COMPREHE NSIVE METABOLI C PANEL+MG ALBUMIN [MASS/VOLU ME] IN SERUM OR PLASMA 4.2 g/dL 3.5 - 5.2 10/08 Specimen Type: PLASMA No comment entered. Ordering Provider: ANKUSH BOWMAN Report Released Date/Time: Sep 24, 2022 01:55 PM Reporting Lab: [facility] [address] Performing Lab: [facility] [address] [place] [facility] COMPREHE NSIVE METABOLI C PANEL+MG BILIRUBIN. TOTAL [MASS/VOLU ME] IN SERUM OR PLASMA 0.6 mg/dL 0.2 - 1.2 10/08 Specimen Type: PLASMA No comment entered. Ordering Provider: ANKUSH BOWMAN Report Released Date/Time: Sep 24, 2022 01:55 PM Reporting Lab: [facility] [address] Performing Lab: [facility] [address] [place] [facility] COMPREHE NSIVE METABOLI C PANEL+MG MAGNESIUM [MASS/VOLU ME] IN SERUM OR PLASMA 2.1 mg/dL 1.6 - 2.6 10/08 Specimen Type: PLASMA No comment entered. Ordering Provider: ANKUSH BOWMAN Report Released Date/Time: Sep 24, 2022 01:55 PM Reporting Lab: [facility] [address] Performing Lab: [facility] [address] [place] [facility] COMPREHE NSIVE METABOLI C PANEL+MG ANION GAP IN SERUM OR PLASMA 9 mmol/L 5 - 15 10/08 Specimen Type: PLASMA No comment entered. Ordering Provider: ANKUSH BOWMAN Report Released Date/Time: Sep 24, 2022 01:55 PM Reporting Lab: [facility] [address] Performing Lab: [facility] [address] [facility] COMPREHE NSIVE METABOLI C PANEL+MG ALKALINE PHOSPHATAS E [ENZYMATIC ACTIVITY/V OLUME] IN SERUM OR PLASMA 96 U/L 40 - 150 10/08 Specimen Type: PLASMA No comment entered. Ordering Provider: ANKUSH BOWMAN Report Released Date/Time: Sep 24, 2022 01:55 PM Reporting Lab: [facility] [address] Performing Lab: [facility] [address] [facility] COMPREHE NSIVE METABOLI C PANEL+MG ALANINE AMINOTRANS FERASE [ENZYMATIC ACTIVITY/V OLUME] IN SERUM OR PLASMA 29 U/L <55 - 55 10/08 Specimen Type: PLASMA No comment entered. Ordering Provider: ANKUSH BOWMAN Report Released Date/Time: Sep 24, 2022 01:55 PM Reporting Lab: [facility] [address] Performing Lab: [facility] [address] [place] [facility] COMPREHE NSIVE METABOLI C PANEL+MG ASPARTATE AMINOTRANS FERASE [ENZYMATIC ACTIVITY/V OLUME] IN SERUM OR PLASMA 22 U/L <34 - 34 10/08 Specimen Type: PLASMA No comment entered. Ordering Provider: ANKUSH BOWMAN Report Released Date/Time: Sep 24, 2022 01:55 PM Reporting Lab: [facility] [address] Performing Lab: [facility] [address] [place] [facility] COMPREHE NSIVE METABOLI C PANEL+MG GLOMERULAR FILTRATION RATE/1.73 SQ M.PREDICTE D [VOLUME RATE/AREA] IN SERUM, PLASMA OR BLOOD BY CREATININE -BASED FORMULA (CKD-EPI) >90 60 10/08 Specimen Type: PLASMA No comment entered. Ordering Provider: ANKUSH BOWMAN Report Released Date/Time: Sep 24, 2022 01:55 PM Reporting Lab: [facility] [address] Performing Lab: [facility] [address] [place] [facility] CBC & DIFF LEUKOCYTES [#/VOLUME] IN BLOOD BY AUTOMATED COUNT 7.32 10*3/uL 4.0 - 11.0 10/08 Specimen Type: BLOOD Comment: Automated Differentia l Performed Ordering Provider: ANKUSH BOWMAN Report Released Date/Time: Sep 24, 2022 01:55 PM Reporting Lab: [facility] [address] Performing Lab: [facility] [address] [place] [facility] CBC & DIFF ERYTHROCYT ES [#/VOLUME] IN BLOOD BY AUTOMATED COUNT 4.80 10*6/uL 4.6 - 6.2 10/08 Specimen Type: BLOOD Comment: Automated Differentia l Performed Ordering Provider: ANKUSH BOWMAN Report Released Date/Time: Sep 24, 2022 01:55 PM Reporting Lab: [facility] [address] Performing Lab: [facility] [address] [place] [facility] CBC & DIFF HEMOGLOBIN [MASS/VOLU ME] IN BLOOD 14.7 g/dL 13.5 - 17.9 10/08 Specimen Type: BLOOD Comment: Automated Differentia l Performed Ordering Provider: ANKUSH BOWMAN Report Released Date/Time: Sep 24, 2022 01:55 PM Reporting Lab: [facility] [address] Performing Lab: [facility] [address] [place] [facility] CBC & DIFF HEMATOCRIT [VOLUME FRACTION] OF BLOOD BY AUTOMATED COUNT 44.2 41 - 54 10/08 Specimen Type: BLOOD Comment: Automated Differentia l Performed Ordering Provider: ANKUSH BOWMAN Report Released Date/Time: Sep 24, 2022 01:55 PM Reporting Lab: [facility] [address] Performing Lab: [facility] [address] [place] [facility] CBC & DIFF MCV [ENTITIC VOLUME] BY AUTOMATED COUNT 92.1 fL 80 - 100 10/08 Specimen Type: BLOOD Comment: Automated Differentia l Performed Ordering Provider: ANKUSH BOWMAN Report Released Date/Time: Sep 24, 2022 01:55 PM Reporting Lab: [facility] [address] Performing Lab: [facility] [address] [place] [facility] CBC & DIFF MCH [ENTITIC MASS] BY AUTOMATED COUNT 30.6 pg 27 - 33 10/08 Specimen Type: BLOOD Comment: Automated Differentia l Performed Ordering Provider: AKNUSH BOWMAN Report Released Date/Time: Sep 24, 2022 01:55 PM Reporting Lab: [facility] [address] Performing Lab: [facility] [address] [place] [facility] CBC & DIFF MCHC [MASS/VOLU ME] BY AUTOMATED COUNT 33.3 g/dL 32.0 - 37.5 10/08 Specimen Type: BLOOD Comment: Automated Differentia l Performed Ordering Provider: ANKUSH BOWMAN Report Released Date/Time: Sep 24, 2022 01:55 PM Reporting Lab: [facility] [address] Performing Lab: [facility] [address] [place] [facility] CBC & DIFF PLATELETS [#/VOLUME] IN BLOOD BY AUTOMATED COUNT 144 10*3/uL 150 - 400 10/08 L Specimen Type: BLOOD Comment: Automated Differentia l Performed Ordering Provider: ANKUSH BOWMAN Report Released Date/Time: Sep 24, 2022 01:55 PM Reporting Lab: [facility] [address] Performing Lab: [facility] [address] [place] [facility] CBC & DIFF PLATELET MEAN VOLUME [ENTITIC VOLUME] IN BLOOD BY AUTOMATED COUNT 10.8 fL 7.4 - 10.4 10/08 H Specimen Type: BLOOD Comment: Automated Differentia l Performed Ordering Provider: ANKUSH BOWMAN Report Released Date/Time: Sep 24, 2022 01:55 PM Reporting Lab: [facility] [address] Performing Lab: [facility] [address] [place] [facility] CBC & DIFF NEUTROPHIL S/100 LEUKOCYTES IN BLOOD BY MANUAL COUNT 55.5 10/08 Specimen Type: BLOOD Comment: Automated Differentia l Performed Ordering Provider: ANKUSH BOWMAN Report Released Date/Time: Sep 24, 2022 01:55 PM Reporting Lab: [facility] [address] Performing Lab: [facility] [address] [place] [facility] CBC & DIFF LYMPHOCYTE S/100 LEUKOCYTES IN BLOOD BY MANUAL COUNT 31.4 10/08 Specimen Type: BLOOD Comment: Automated Differentia l Performed Ordering Provider: ANKUSH BOWMAN Report Released Date/Time: Sep 24, 2022 01:55 PM Reporting Lab: [facility] [address] Performing Lab: [facility] [address] [place] [facility] CBC & DIFF MONOCYTES/ 100 LEUKOCYTES IN BLOOD BY AUTOMATED COUNT 10.2 10/08 Specimen Type: BLOOD Comment: Automated Differentia l Performed Ordering Provider: ANKUSH BOWMAN Report Released Date/Time: Sep 24, 2022 01:55 PM Reporting Lab: [facility] [address] Performing Lab: [facility] [address] [place] [facility] CBC & DIFF EOSINOPHIL S/100 LEUKOCYTES IN BLOOD BY AUTOMATED COUNT 2.2 10/08 Specimen Type: BLOOD Comment: Automated Differentia l Performed Ordering Provider: ANKUSH BOWMAN Report Released Date/Time: Sep 24, 2022 01:55 PM Reporting Lab: [facility] [address] Performing Lab: [facility] [address] [place] [facility] CBC & DIFF BASOPHILS/ 100 LEUKOCYTES IN BLOOD BY MANUAL COUNT 0.4 10/08 Specimen Type: BLOOD Comment: Automated Differentia l Performed Ordering Provider: ANKUSH BOWMAN Report Released Date/Time: Sep 24, 2022 01:55 PM Reporting Lab: [facility] [address] Performing Lab: [facility] [address] [place] [facility] CBC & DIFF ERYTHROCYT E DISTRIBUTI ON WIDTH [RATIO] BY AUTOMATED COUNT 15.9 11.5 - 14.5 10/08 H Specimen Type: BLOOD Comment: Automated Differentia l Performed Ordering Provider: ANKUSH BOWMAN Report Released Date/Time: Sep 24, 2022 01:55 PM Reporting Lab: [facility] [address] Performing Lab: [facility] [address] [place] [facility] CBC & DIFF LYMPHOCYTE S [#/VOLUME] IN BLOOD BY AUTOMATED COUNT 2.30 10*3/uL 1.0 - 4.0 10/08 Specimen Type: BLOOD Comment: Automated Differentia l Performed Ordering Provider: ANKUSH BOWMAN Report Released Date/Time: Sep 24, 2022 01:55 PM Reporting Lab: [facility] [address] Performing Lab: [facility] [address] [place] [facility] CBC & DIFF MONOCYTES [#/VOLUME] IN BLOOD BY AUTOMATED COUNT 0.75 10*3/uL 0.1 - 1.0 10/08 Specimen Type: BLOOD Comment: Automated Differentia l Performed Ordering Provider: ANKUSH BOWMAN Report Released Date/Time: Sep 24, 2022 01:55 PM Reporting Lab: [facility] [address] Performing Lab: [facility] [address] [place] [facility] CBC & DIFF NEUTROPHIL S [#/VOLUME] IN BLOOD BY AUTOMATED COUNT 4.06 10*3/uL 2.0 - 7.7 10/08 Specimen Type: BLOOD Comment: Automated Differentia l Performed Ordering Provider: ANKUSH BOWMAN Report Released Date/Time: Sep 24, 2022 01:55 PM Reporting Lab: [facility] [address] Performing Lab: [facility] [address] [place] [facility] CBC & DIFF EOSINOPHIL S [#/VOLUME] IN BLOOD BY AUTOMATED COUNT 0.16 10*3/uL 0 - 0.5 10/08 Specimen Type: BLOOD Comment: Automated Differentia l Performed Ordering Provider: ANKUSH BOWMAN Report Released Date/Time: Sep 24, 2022 01:55 PM Reporting Lab: [facility] [address] Performing Lab: [facility] [address] [place] [facility] CBC & DIFF BASOPHILS [#/VOLUME] IN BLOOD BY AUTOMATED COUNT 0.03 10*3/uL 0 - 0.2 10/08 Specimen Type: BLOOD Comment: Automated Differentia l Performed Ordering Provider: ANKUSH BOWMAN Report Released Date/Time: Sep 24, 2022 01:55 PM Reporting Lab: [facility] [address] Performing Lab: [facility] [address] [place] [facility] CBC & DIFF IG(META,MY MALACHI,PRO) 0.3 10/08 Specimen Type: BLOOD Comment: Automated Differentia l Performed Ordering Provider: ANKUSH BOWMAN Report Released Date/Time: Sep 24, 2022 01:55 PM Reporting Lab: [facility] [address] Performing Lab: [facility] [address] [place] [facility] CBC & DIFF IMMATURE GRANULOCYT ES [PRESENCE] IN BLOOD BY AUTOMATED COUNT 0.02 10*3/uL 0 - 0.1 10/08 Specimen Type: BLOOD Comment: Automated Differentia l Performed Ordering Provider: ANKUSH BOWMAN Report Released Date/Time: Sep 24, 2022 01:55 PM Reporting Lab: [facility] [address] Performing Lab: [facility] [address] [place] [facility] CYSTATIN C WITH EGFR CYSTATIN C [MASS/VOLU ME] IN SERUM OR PLASMA 1.38 mg/L 0.51 - 1.05 11/28 /2022 H Specimen Type: PLASMA No comment entered. Ordering Provider: ANKUSH BOWMAN Report Released Date/Time: Sep 24, 2022 01:55 PM Reporting Lab: [facility] [address] Performing Lab: [facility] [address] [place] [facility] CYSTATIN C WITH EGFR CYSTATIN C AND GLOMERULAR FILTRATION RATE BY CYSTATIN-B ASED FORMULA PANEL - SERUM OR PLASMA 48 60 10/08 L Specimen Type: PLASMA No comment entered. Ordering Provider: ANKUSH BOWMAN Report Released Date/Time: Sep 24, 2022 01:55 PM Reporting Lab: [facility] [address] Performing Lab: [facility] [address] [place] [facility] VIT D 25-OH,TO ZAMZAM 25-HYDROXY VITAMIN D3 [MASS/VOLU ME] IN SERUM OR PLASMA 54 ng/mL 12 - 50 10/08 H Specimen Type: SERUM No comment entered. Ordering Provider: ANKUSH BOWMAN Report Released Date/Time: Sep 24, 2022 01:55 PM Reporting Lab: [facility] [address] Performing Lab: [facility] [address] [place] [facility] COMPREHE NSIVE METABOLI C PANEL+MG CREATININE [MASS/VOLU ME] IN SERUM OR PLASMA 0.7 mg/dL 0.7 - 1.2 05/28 Specimen Type: PLASMA No comment entered. Ordering Provider: GERMANIA HANSON Report Released Date/Time: May 28, 2022 03:06 PM Reporting Lab: [facility] [address] Performing Lab: [facility] [address] [facility] COMPREHE NSIVE METABOLI C PANEL+MG UREA NITROGEN [MASS/VOLU ME] IN SERUM OR PLASMA 13 mg/dL 8 - 26 05/28 Specimen Type: PLASMA No comment entered. Ordering Provider: GERMANIA HANSON Report Released Date/Time: May 28, 2022 03:06 PM Reporting Lab: [facility] [address] Performing Lab: [facility] [address] [facility] COMPREHE NSIVE METABOLI C PANEL+MG GLUCOSE [MASS/VOLU ME] IN SERUM OR PLASMA 98 mg/dL 74 - 100 05/28 Specimen Type: PLASMA No comment entered. Ordering Provider: GERMANIA HANSON Report Released Date/Time: May 28, 2022 03:06 PM Reporting Lab: [facility] [address] Performing Lab: [facility] [address] [facility] COMPREHE NSIVE METABOLI C PANEL+MG SODIUM [MOLES/VOL UME] IN SERUM OR PLASMA 138 mmol/L 136 - 145 05/28 Specimen Type: PLASMA No comment entered. Ordering Provider: GERMANIA HANSON Report Released Date/Time: May 28, 2022 03:06 PM Reporting Lab: [facility] [address] Performing Lab: [facility] [address] [facility] COMPREHE NSIVE METABOLI C PANEL+MG POTASSIUM [MOLES/VOL UME] IN SERUM OR PLASMA 4.4 mmol/L 3.5 - 5.1 05/28 Specimen Type: PLASMA No comment entered. Ordering Provider: GERMANIA HANSON Report Released Date/Time: May 28, 2022 03:06 PM Reporting Lab: [facility] [address] Performing Lab: [facility] [address] [facility] COMPREHE NSIVE METABOLI C PANEL+MG CHLORIDE [MOLES/VOL UME] IN SERUM OR PLASMA 102 mmol/L 98 - 107 05/28 Specimen Type: PLASMA No comment entered. Ordering Provider: GERMANIA HANSON Report Released Date/Time: May 28, 2022 03:06 PM Reporting Lab: [facility] [address] Performing Lab: [facility] [address] [facility] COMPREHE NSIVE METABOLI C PANEL+MG CARBON DIOXIDE, TOTAL [MOLES/VOL UME] IN SERUM OR PLASMA 28 mmol/L 22 - 29 05/28 Specimen Type: PLASMA No comment entered. Ordering Provider: GERMANIA HANSON Report Released Date/Time: May 28, 2022 03:06 PM Reporting Lab: [facility] [id number] Performing Lab: [facility] [address] [facility] COMPREHE NSIVE METABOLI C PANEL+MG CALCIUM [MASS/VOLU ME] IN SERUM OR PLASMA 9.4 mg/dL 8.4 - 10.2 05/28 Specimen Type: PLASMA No comment entered. Ordering Provider: GERMANIA HANSON Report Released Date/Time: May 28, 2022 03:06 PM Reporting Lab: [facility] [id number] Performing Lab: [facility] [address] [facility] COMPREHE NSIVE METABOLI C PANEL+MG PROTEIN [MASS/VOLU ME] IN SERUM OR PLASMA 7.6 g/dL 6.0 - 8.3 05/28 Specimen Type: PLASMA No comment entered. Ordering Provider: GERMANIA HANSON Report Released Date/Time: May 28, 2022 03:06 PM Reporting Lab: [facility] [id number] Performing Lab: [facility] [address] [facility] COMPREHE NSIVE METABOLI C PANEL+MG ALBUMIN [MASS/VOLU ME] IN SERUM OR PLASMA 4.0 g/dL 3.5 - 5.2 05/28 Specimen Type: PLASMA No comment entered. Ordering Provider: GERAMNIA HANSON Report Released Date/Time: May 28, 2022 03:06 PM Reporting Lab: [facility] [address] Performing Lab: [facility] [address] [facility] COMPREHE NSIVE METABOLI C PANEL+MG BILIRUBIN. TOTAL [MASS/VOLU ME] IN SERUM OR PLASMA 0.5 mg/dL 0.2 - 1.2 05/28 Specimen Type: PLASMA No comment entered. Ordering Provider: GERMANIA HANSON Report Released Date/Time: May 28, 2022 03:06 PM Reporting Lab: [facility] [address] Performing Lab: [facility] [address] [facility] COMPREHE NSIVE METABOLI C PANEL+MG MAGNESIUM [MASS/VOLU ME] IN SERUM OR PLASMA 2.1 mg/dL 1.6 - 2.6 05/28 Specimen Type: PLASMA No comment entered. Ordering Provider: GERMANIA HANSON Report Released Date/Time: May 28, 2022 03:06 PM Reporting Lab: [facility] [address] Performing Lab: [facility] [address] [facility] COMPREHE NSIVE METABOLI C PANEL+MG ANION GAP IN SERUM OR PLASMA 8 mmol/L 5 - 15 05/28 Specimen Type: PLASMA No comment entered. Ordering Provider: GERMANIA HANSON Report Released Date/Time: May 28, 2022 03:06 PM Reporting Lab: [facility] [address] Performing Lab: [facility] [address] [facility] COMPREHE NSIVE METABOLI C PANEL+MG ALKALINE PHOSPHATAS E [ENZYMATIC ACTIVITY/V OLUME] IN SERUM OR PLASMA 108 U/L 40 - 150 05/28 Specimen Type: PLASMA No comment entered. Ordering Provider: GERMANIA HANSON Report Released Date/Time: May 28, 2022 03:06 PM Reporting Lab: [facility] [address] Performing Lab: [facility] [address] [facility] COMPREHE NSIVE METABOLI C PANEL+MG ALANINE AMINOTRANS FERASE [ENZYMATIC ACTIVITY/V OLUME] IN SERUM OR PLASMA 27 U/L <55 - 55 05/28 Specimen Type: PLASMA No comment entered. Ordering Provider: GERMANIA HANSON Report Released Date/Time: May 28, 2022 03:06 PM Reporting Lab: [facility] [address] Performing Lab: [facility] [address] [facility] COMPREHE NSIVE METABOLI C PANEL+MG ASPARTATE AMINOTRANS FERASE [ENZYMATIC ACTIVITY/V OLUME] IN SERUM OR PLASMA 21 U/L <34 - 34 05/28 Specimen Type: PLASMA No comment entered. Ordering Provider: GERMANIA HANSON Report Released Date/Time: May 28, 2022 03:06 PM Reporting Lab: [facility] [address] Performing Lab: [facility] [address] [facility] COMPREHE NSIVE METABOLI C PANEL+MG GLOMERULAR FILTRATION RATE/1.73 SQ M.PREDICTE D [VOLUME RATE/AREA] IN SERUM, PLASMA OR BLOOD BY CREATININE -BASED FORMULA (CKD-EPI) >90 60 05/28 Specimen Type: PLASMA No comment entered. Ordering Provider: GERMANIA HANSON Report Released Date/Time: May 28, 2022 03:06 PM Reporting Lab: [facility] [address] Performing Lab: [facility] [address] [facility] Encounters Combined list of: 1) Encounters from Department of [facility] Affairs facilities going back up to thelast 18 months. 2) Encounters from the Department of [employer] facilities going back up to 280 months. Location Location Details Encounter Type Encounter Number Reason For Visit Attending Provider ADM Date DC Date Status Disposition Source [facility] PRO PHONE CALL 5-10 MIN [id number] Diagnos is: ICD-10- CM Z73.6 Limitat ion of activit ies due to disabil ity<br/ > AVE HALEY 12/13 [facility] Outpatient Encounter [id number] 01/08 [facility] PRO PHONE CALL 21-30 MIN [id number] Diagnos is: ICD-10- CM G82.20 Paraple mary kay, unspeci fied
Hever CASTRO 01/08 [facility] Outpatient Encounter [id number] 01/09 [facility] DIABETIC MANAGEMENT PROGRAM, [address] [id number] Diagnos is: ICD-10- CM G82.20 Paraple mary kay, unspeci fied
TIGIST BASSETT A 01/30 [facility] Outpatient Encounter [id number] 02/05 [facility] MTMS BY PHARM ADDL 15 MIN [id number] Diagnos is: ICD-10- CM G82.20 Paraple mary kay, unspeci fied
MANPREET BARRETTEY N 02/05 [facility] OT EVAL LOW COMPLEX 30 MIN [id number] Diagnos is: ICD-10- CM Z73.6 Limitat ion of activit ies due to disabil ity<br/ > Bryn PARDO 02/05 [facility] OFF/OP EST MAY X REQ PHY/QHP [id number] Diagnos is: ICD-10- CM G82.20 Paraple mary kay, unspeci fied
ROSARIAJOSUÉ J 02/05 [facility] PSYCH DIAGNOSTIC EVALUATION [id number] Diagnos is: ICD-10- CM F32.A Depress ion, unspeci fied
BINU GAMEZ 02/05 [facility] OFFICE O/P EST MOD 30-39 MIN [id number] Diagnos is: ICD-10- CM G82.20 Paraple mary kay, unspeci fied
ME LOGAN BOWMAN K 02/05 [facility] PSYCH DIAGNOSTIC EVALUATION [id number] Diagnos is: ICD-10- CM G82.20 Paraple mary kay, unspeci fied
CHIRCHULAAN DESIRE J 02/05 [facility] MEDICAL NUTRITION INDIV IN [id number] Diagnos is: ICD-10- CM Z71.3 Dietary beauty counselor ing and surveil payal<b r/> Katia ARCHER 02/05 [facility] [place] [id number] Diagnos is: ICD-10- CM Z43.3 Encount er for attenti on to colosto my
VIOLA YOON 02/08 [facility] OFFICE O/P EST HI 40-54 MIN [id number] Diagnos is: ICD-10- CM G82.20 Paraple mary kay, unspeci fied
ME LOGAN BOWMAN 02/13 [facility] WHEELCHAIR MNGMENT TRAINING [id number] Diagnos is: ICD-10- CM Z73.6 Limitat ion of activit ies due to disabil ity<br/ > BOUSLOG,RY AN P 02/13 [facility] Outpatient Encounter [id number] 02/19 [facility] HC PRO PHONE CALL 11-20 MIN [id number] Diagnos is: ICD-10- CM Z73.6 Limitat ion of activit ies due to disabil ity<br/ > BOUSLOG,RY AN P 04/23 [facility] Outpatient Encounter [id number] 04/24 [facility] Outpatient Encounter [id number] 05/24 [facility] OFF/OP EST MARCH X REQ PHY/QHP [id number] Diagnos is: ICD-10- CM G82.20 Paraple mary kay, unspeci fied
VIOLA YOON NDJagdish 05/28 [facility] [place] [facility] WHEELCHAIR MNGMENT TRAINING [id number] Diagnos is: ICD-10- CM Z73.6 Limitat ion of activit ies due to disabil ity<br/ > BOUSLOG,RY AN P 06/10 [facility] [place] [facility] Outpatient Encounter [id number] 10/28 [facility] [place] [facility] Outpatient Encounter [id number] 11/20 [facility] [place] [facility] Outpatient Encounter [id number] 05/12 [facility] Social History Combined list of available smoking, tobacco, and other social history from 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 Social History Type Response Date Comment Sour e Tobacco smoking status [facility] NEVER USED 05/28/20 22 SADAF TREVINO [facility] This section is an empty social history section. DoD Plan of Care List of future care activities from Department [facility] facilities. Additional future care activities may be listed in the Assessment and Plan section. Date/Time Care Activity Care Activity Detail Facili ty 06/24/2024 AMBULATORY - REHAB MEDICINE AMBULATORY - REHAB MEDICINE [facility] 05/12/2024 Consult Order SCI/D WHEELCHAIR SEATING/POSITIONING OUTPT Cons [place] [employer] Choice [facility] Advance Directives List of completed, amended, or rescinded Advance Directives on record at Department [facility] Affairs facilities. An actual copy of the Directive is not included. Date Advance Directive Provider Source 02/05/2023 ADVANCE DIRECTIVE DISCUSSION GUSTAVO ABAD [facility]
--- OUTSIDE RECORDS SUMMARY | 2024-05-25 12:50 | XMS_ITS | Clinical Summary ---
Author Organization [facility] Address [address] [place] [address] Care Team Providers Care Toll Transmission Worker Name Role Phone Franklin Squires MD Primary Care Provider [phone] Source Comments You are receiving this document [...] for each transition of care or referral. 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 use of anticoagulant therapy 0 02/17/2014 [...] Comments Blood Pressure 120/63 01/18/2022 12:59 PM FINANCIAL SERVICES DIRECTOR Pulse 87 01/18/2022 12:59 PM FINANCIAL SERVICES DIRECTOR Temperature 36.3 ??C (97.4 ??F) 01/18/2022 12:59 [...] this topic Medical Devices Implanted Type Area Criminal Justice Faculty Device Identifier Shelf Expiration Date Model / Serial / Lot [id number] 4ml Tisseel Explanted:([place] ntity not on file) BIOLOGIC N/A: NECK Lynne Fenwall 09/10/2011 [id number] / [id number] / [id number] Description:posterior Cath Intrathecal Indura - [id number] Implanted:Qty: 1 on 05/09/2010 at [facility] DEVICE Right: LUMBAR SPINE Front Flip 01/18/2012 8709 / N/A / [id number] Cath Intrathecal Indura - [id number] Implanted:Qty: 1 on 05/29/2010 at [facility] DEVICE Front Flip 8709 / / Scr Indira Conic 7.3x80 - [id number] Implanted:Qty: 1 on 03/13/2011 at [facility] DEVICE Right: FEMUR DISTAL [employer] 02.207.28 0 / NONE / NONE Plt Lcp Cndl Rt 4.5x170 6h - [id number] Implanted:Qty: 1 on 03/13/2011 at [facility] DEVICE Right: FEMUR DISTAL [employer] 222.656 / NONE / NONE Description:6 hole 170mm rig ht 4.5mm lcp condylar plate Scr Didier Ss Sftp 4.5x40 - [id number] Implanted:Qty: 1 on 03/13/2011 at [facility] DEVICE Left: FEMUR DISTAL [employer] 214.840 / NONE / NONE Scr Didier Ss Sftp 4.5x50 - [id number] Implanted:Qty: 1 on 03/13/2011 at [facility] DEVICE Left: FEMUR DISTAL [employer] 214.850 / NONE / NONE Scr Indira Lk 5.0x80 - [id number] Implanted:Qty: 2 on 03/13/2011 at [facility] DEVICE Left: FEMUR DISTAL [employer] 02.205.08 0 / NONE / NONE Scr Indira Lk 5.0x85 - [id number] Implanted:Qty: 2 on 03/13/2011 at [facility] DEVICE Left: FEMUR DISTAL [employer] 02.205.08 5 / NONE / NONE Scr Lk Sftp T25 5.0x50 - [id number] Implanted:Qty: 1 on 03/13/2011 at [facility] DEVICE Left: FEMUR DISTAL [employer] 212.219 / NONE / NONE Scr Lk Sftp T25 5.0x60 - [id number] Implanted:Qty: 1 on 03/13/2011 at [facility] DEVICE Left: FEMUR DISTAL [employer] 212.221 / NONE / NONE Scr Indira Conic 7.3x85 - [id number] Implanted:Qty: 1 on 03/13/2011 at [facility] DEVICE Left: FEMUR DISTAL [employer] 02.207.28 5 / NONE / NONE Plt Lcp Cndl Lt 4.5x170 6h - [id number] Implanted:Qty: 1 on 03/13/2011 at [facility] DEVICE Left: FEMUR DISTAL [employer] 222.657 / NONE / NONE Description:6 hole 170mmleng th left 4.5mm lcp condylar plate. Scr Didier Sftp 3.5x60 F-Thrd - [id number] Implanted:Qty: 1 on 03/13/2011 at [facility] DEVICE Left: TIBIA PROXIMAL [employer] 204.860 / NONE / NONE Scr Star Lk Sftp 3.5x32 - [id number] Implanted:Qty: 1 on 03/13/2011 at [facility] DEVICE Left: TIBIA PROXIMAL [employer] 212.112 / NONE / NONE Scr Star Lk Sftp 3.5x55 - [id number] Implanted:Qty: 2 on 03/13/2011 at [facility] DEVICE Left: TIBIA PROXIMAL [employer] 212.123 / NONE / NONE Scr Star Lk Sftp 3.5x60 - [id number] Implanted:Qty: 2 on 03/13/2011 at [facility] DEVICE Left: TIBIA PROXIMAL [employer] 212.124 / NONE / NONE Plt Lcp M/Prox Lt 3.5x94 4h - [id number] Implanted:Qty: 1 on 03/13/2011 at [facility] DEVICE Left: TIBIA PROXIMAL [employer] 239.955 / NONE / NONE Scr Didier Ss Sftp 4.5x36 - [id number] Implanted:Qty: 1 on 03/13/2011 at [facility] DEVICE Right: FEMUR DISTAL [employer] 214.836 / NONE / NONE Scr Didier Ss Sftp 4.5x44 - [id number] Implanted:Qty: 1 on 03/13/2011 at [facility] DEVICE Right: FEMUR DISTAL [employer] 214.844 / NONE / NONE Scr Indira Lk 5.0x75 - [id number] Implanted:Qty: 1 on 03/13/2011 at [facility] DEVICE Right: FEMUR DISTAL [employer] 02.205.07 5 / NONE / NONE Scr Indira Lk 5.0x85 - [id number] Implanted:Qty: 2 on 03/13/2011 at [facility] DEVICE Right: FEMUR DISTAL [employer] 02.205.08 5 / NONE / NONE Scr Lk Sftp T25 5.0x44 - [id number] Implanted:Qty: 1 on 03/13/2011 at [facility] DEVICE Right: FEMUR DISTAL [employer] 212.216 / NONE / NONE Scr Lk Sftp T25 5.0x65 - [id number] Implanted:Qty: 1 on 03/13/2011 at [facility] DEVICE Right: FEMUR DISTAL [employer] 212.222 / NONE / NONE Plt Lp T Ti Str 4h - [id number] Implanted:Qty: 3 on 07/28/2014 by Cooper Shelley MD at [facility] DEVICE Right: SKULL [employer] 421.504 / / Scr Matrix Sfdr 4mm - [id number] Implanted:Qty: 6 on 07/28/2014 by Cooper Shelley MD at [facility] DEVICE Right: SKULL [employer] [place] 04.503.10 4.01 / / Lead Linear 3-4 8 Contact 50cm - [id number] Implanted:Qty: 1 on 03/08/2016 by Zelalem Cohen DO at [facility] DEVICE N/A: OTHER-SEE DESCRIPTION [facility] 09/10/2017 [id number] 2500 / / [id number] Description:LUMBAR Lead Linear 3-4 8 Contact 50cm - [id number] Implanted:Qty: 1 on 03/08/2016 by Zelalem Cohen DO at [facility] DEVICE N/A: OTHER-SEE DESCRIPTION [facility] 09/10/2017 [id number] 2500 / / [id number] Description:LUMBAR Lead Linear 3-4 8 Contact 50cm - [id number] Implanted:Qty: 1 on 03/08/2016 by Zelalem Cohen DO at [facility] DEVICE N/A: OTHER-SEE DESCRIPTION [facility] 09/10/2017 [id number] 2500 / / [id number] Description:LUMBAR Lead Linear 3-4 8 Contact 50cm - [id number] Implanted:Qty: 1 on 03/08/2016 by Zelalem Cohen DO at [facility] DEVICE N/A: OTHER-SEE DESCRIPTION [facility] 09/10/2017 [id number] 2500 / / [id number] Description:LUMBAR Lead Linear 3-4 8 Contact 50cm - [id number] Implanted:Qty: 1 on 05/24/2016 by Zelalem Cohen DO at [facility] DEVICE N/A: SPINE LUMBAR POSTERIOR [facility] 01/31/2018 [id number] 2500 / [id number] / Lead Linear 3-4 8 Contact 50cm - [id number] Implanted:Qty: 1 on 05/24/2016 by Zelalem Cohen DO at [facility] DEVICE N/A: SPINE LUMBAR POSTERIOR [facility] 04/26/2018 [id number] 2500 / [id number] / Lead Linear 3-4 8 Contact 50cm - [id number] Implanted:Qty: 1 on 05/24/2016 by Zelalem Cohen DO at [facility] DEVICE N/A: SPINE LUMBAR POSTERIOR [facility] 04/26/2018 [id number] 2500 / [id number] / Lead Linear 3-4 8 Contact 50cm - [id number] Implanted:Qty: 1 on 05/24/2016 by Zelalem Cohen DO at [facility] DEVICE N/A: SPINE LUMBAR POSTERIOR [facility] 04/26/2018 [id number] 2500 / [id number] / Generator Pulse Spectra - [id number] Implanted:Qty: 1 on 05/24/2016 by Zelalem Cohen DO at [facility] DEVICE N/A: SPINE LUMBAR POSTERIOR [facility] 05/08/2018 [id number] / [id number] / [id number] Lazbuddie Ran - [id number] Implanted:Qty: 1 on 05/24/2016 by Zelalem Cohen DO at [facility] DEVICE N/A: SPINE LUMBAR POSTERIOR [facility] 05/02/2018 [id number] 60 / / [id number] Lazbuddie Ran - [id number] Implanted:Qty: 1 on 05/24/2016 by Zelalem Cohen DO at [facility] DEVICE N/A: SPINE LUMBAR POSTERIOR [facility] 02/28/2018 [id number] 60 / / [id number] Procedures Procedure Name Priority Date/Time Associated Diagnosis Comments CREATININE/GFR, WB POC Routine 01/06/2016 12:04 PM FINANCIAL SERVICES DIRECTOR Back pain, 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 HGB A1C Routine 07/29/2014 3:19 AM CDT from Last 3 Months or Most Recently Relevant to Health Maintenance Results * CREATININE/GFR, WB POC (01/06/2016 12:04 PM FINANCIAL SERVICES DIRECTOR) Creat Whole Blood 0.9 0.66 - 1.25 mg/dl [facility] GFR, Estimated >60 >60 ml/min/1.7 3m2 [facility] GFR, Est., If Black >60 >60 ml/min/1.7 3m2 [facility] 01/06/2016 12:0 4 PM FINANCIAL SERVICES DIRECTOR 01/06/2016 12:21 PM FINANCIAL SERVICES DIRECTOR Trae Blair MD LAB[facility] [phone] * (ABNORMAL) HGB A1C (07/29/2014 3:19 AM CDT) Hgb A1c 6.4(H) 4.3 - 6.1 % [facility] Comment: The usual A1C goal for people with diabetes, age 18-75, is <8.0%. Physicians may recommend a higher or lower goal for specific individuals. 07/29/2014 3:19 AM CDT 07/29/2014 3:22 AM CDT [facility] - 07/29/2014 12:53 PM CDT Performed at [facility], [address] ??[address] [place] Wei PA-C LAB_[address] [address] from Last 3 Months or Most Recently [...] 5:44 PM 07/28/2014 6:50 PM Care Teams Toll Transmission Worker Relationship Specialty Start Date End Date Franklin Squires MD [address] [facility] [address] [place] [address] PCP - General Family Practice 03/08/16
--- OUTSIDE RECORDS SUMMARY | 2024-05-25 12:51 | XMS_ITS | Encounter Summary ---
Author Organization [facility] Address [address], [place] [address] Care Team Providers Care Entry Level Management Name Role Phone Franklin Squires MD Primary Care Provider [phone] Encounter Details Date Type Department Care Team (Late st Contact Info) Description 07/23/2013 [facility] 401 Interventional Pain Management [address] [facility] [place] [address] Zelalem Cohen DO [address] [place] [address] [employer] SCRIPT Social History Tobacco Use Types [...] Cohen MD - 07/23/2013 12:00 AM CDT UNITY RECREATION COORDINATOR documented in this encounter Plan of Treatment Not on file documented as of this encounter Visit Diagnoses Not on filedocumented in this encounter Care Teams Entry Level Management Relationship Specialty Start Date End Date Franklin Squires MD [address] [facility] [address] PCP - General Family Practice 03/08/16 documented as of this encounter
--- OUTSIDE RECORDS SUMMARY | 2024-05-25 12:51 | XMS_ITS | Encounter Summary ---
Author Organization [facility] Address [address], [place] [address] Care Team Providers Care Rotary Rock Drilling Machine Operator Name Role Phone Franklin Squires MD Primary Care Provider [phone] Encounter Details Date Type Department Care Team [...] on filedocumented in this encounter Care Teams [place]ary Rock Drilling Machine Operator Relationship Specialty Start Date End Date Franklin Squ[facility] [address] [facility] [address] PCP - General Family Practice 03/08/16 documented as of this encounter
--- OUTSIDE RECORDS SUMMARY | 2024-05-25 12:51 | XMS_ITS | Encounter Summary ---
Author Organization [facility] Address [address] [address] Care Team Providers Care Veneer Redrier Name Role Phone Franklin Squires MD Primary [...] on filedocumented in this encounter Care Teams Veneer Redrier Relationship Specialty Start Date End Date Franklin Squires MD [address] [facility] [place] [address] PCP - General Family Practice 03/08/16 documented as of this encounter
--- OUTSIDE RECORDS SUMMARY | 2024-05-25 12:51 | XMS_ITS | Encounter Summary ---
Author Organization [facility] Address [address], [place] [address] Care Team Providers Care Assistant Track Coach Name Role Phone Franklin Squires MD Primary Care Provider Encounter Details Date Type Department Care Team (Late st Contact Info) Description 04/20/[address] [address] Radiology, Provider MRI SAFETY SHEET AND COMPATIBILITY [...] filedocumented in this encounter Care Teams Assistant Track Coach Relationship Specialty Start Date End Date Franklin Squires MD 100 [facility] [place] [address] PCP - General Family Practice 03/08/16 documented as of this encounter
--- OUTSIDE RECORDS SUMMARY | 2024-05-25 12:51 | XMS_ITS | Encounter Summary ---
Author Organization [facility] [address] [address] Care Team Providers Care Director Of Distribution Name Role Phone Franklin Squires MD Primary Care Provider [phone] Encounter Details Date Type Department Care Team (Late st Contact Info) Description 10/26/2013 Correspondence [facility] Physical Therapy [address] [place] [address] Trudi Raymundo, PT [address] [place] [id number] LETTER OF MEDICAL NECESSITY Social History Tobacco [...] PT - 10/26/2013 12:00 AM CST ER documented in this encounter Plan of Treatment Not on file documented as of this encounter Visit Diagnoses Not on filedocumented in this encounter Care Teams Director Of Distribution Relationship Specialty Start Date End Date Franklin Squires MD [address] [facility] [address] PCP - General Family Practice 03/08/16 documented as of this encounter
--- OUTSIDE RECORDS SUMMARY | 2024-05-25 12:51 | XMS_ITS | Encounter Summary ---
Author Organization [facility] Address [address], [place] [address] Care Team Providers Care Neighborhood Service Center Director Name Role Phone Franklin Squires MD Primary Care Provider Encounter Details Date Type Department Care Team (Late st Contact Info) Description 12/16/2013 Correspondence [facility] Radiology [address] [place] [address] Radiology, Provider MRI SAFETY SHEET AND COMPATIBILITY [...] Radiology, Provider - 12/16/2013 12:00 AM CST ETOMETER OPERATOR documented in this encounter Plan of Treatment Not on file documented as of this encounter Visit Diagnoses Not on filedocumented in this encounter Care Teams Neighborhood Service Center Director Relationship Specialty Start Date End Date Franklin Squires MD 100 [facility] [place] [address] PCP - General Family Practice 03/08/16 documented as of this encounter
--- OUTSIDE RECORDS SUMMARY | 2024-05-25 12:51 | XMS_ITS | Encounter Summary ---
Author Organization [facility] Address [address] [address] Care Team Providers Care Investigation Division Lieutenant Name Role Phone Franklin Squires MD Primary Care Provider Encounter Details Date Type Department Care Team (Late st Contact Info) Description 02/09/2016 [facility] 401 NeuroSurgery 401 [facility]. [place], [place] [id number] Jodi Aguila PA-C [address] [place] [address] PATIENT LIFT PRESCRIPTION Social History Tobacco Use [...] on filedocumented in this encounter Care Teams Investigation Division Lieutenant Relationship Specialty Start Date End Date Franklin Squires MD 100 [facility] [place] [phone] PCP - General Family Practice 03/08/16 documented as of this encounter
--- OUTSIDE RECORDS SUMMARY | 2024-05-25 12:51 | XMS_ITS | Encounter Summary ---
Author Organization [facility] Address [address] [address] Care Team Providers Care Friction Paint Machine Tender Name Role Phone Franklin Squires MD Primary Care Provider Encounter Details Date Type Department Care Team (Late st Contact Info) Description 09/07/2014 Correspondence [facility] Radiology [address] [place] [address] Radiology, Provider MRI SAFETY SHEET AND COMPATIBILITY [...] on filedocumented in this encounter Care Teams Friction Paint Machine Tender Relationship Specialty Start Date End Date Franklin Squires MD [address] [place], [place] [address] [address] PCP - General Family Practice 03/08/16 documented as of this encounter
--- OUTSIDE RECORDS SUMMARY | 2024-05-25 12:51 | XMS_ITS | Encounter Summary ---
Author Organization [facility] Address [address], [place] [address] Care Team Providers Care Space Physicist Name Role Phone Franklin Squires MD Primary Care Provider [phone] Encounter Details Date Type Department Care Team (Late st Contact Info) Description 11/23/2015 Correspondence External to External, [place] [address] [facility] Social History Tobacco Use Types Packs/Day [...] on filedocumented in this encounter Care Teams Space Physicist Relationship Specialty Start Date End Date Franklin Squires MD [address] [place] [address] [place] [address] PCP - General Family Practice 03/08/16 documented as of this encounter
--- OUTSIDE RECORDS SUMMARY | 2024-05-25 12:51 | XMS_ITS | Encounter Summary ---
Author Organization [facility] Address [address] [address] Care Team Providers Care Clinical Professor Name Role Phone Franklin Squires MD Primary Care Provider [phone] Encounter Details Date Type Department Care Team (Late st Contact Info) Description 08/20/2014 Outside Hospital External to [facility] Social History Tobacco Use Types [...] filedocumented in this encounter Care Teams Clinical Professor Relationship Specialty Start Date End Date Franklin Squires MD 100 [facility] [place] [address] PCP - General Family Practice 03/08/16 documented as of this encounter
--- OUTSIDE RECORDS SUMMARY | 2024-05-25 12:51 | XMS_ITS | Encounter Summary ---
Author Organization [facility] Address [address] [address] Care Team Providers Care Stocklayer Name Role Phone Franklin Squires MD Primary [...] on filedocumented in this encounter Care Teams Stocklayer Relationship Specialty Start Date End Date Franklin Squires MD 100 [facility] [place] [address] PCP - General Family Practice 03/08/16 documented as of this encounter
--- OUTSIDE RECORDS SUMMARY | 2024-05-25 12:51 | XMS_ITS | Encounter Summary ---
Author Organization [facility] Address [address] [address] Care Team Providers Care Furrier Designer Name Role Phone Franklin Squires MD Primary Care Provider Encounter Details Date Type Department Care Team (Late st Contact Info) Description 12/14/2014 Correspondence [facility] 401 Physical Medicine 401 [place] [address] May Randle MD [address] [place] [address] DETAILED PRODUCT DESCRIPTION Social History Tobacco Use [...] on filedocumented in this encounter Care Teams Furrier Designer Relationship Specialty Start Date End Date Franklin Squires MD 100 [facility] [place] [address] PCP - General Family Practice 03/08/16 documented as of this encounter
--- OUTSIDE RECORDS SUMMARY | 2024-05-25 12:51 | XMS_ITS | Encounter Summary ---
Author Organization [facility] Address [address] [address] Care Team Providers Care Fire Captain Name Role Phone Franklin Squires MD Primary Care Provider Encounter Details Date Type Department Care Team (Late st Contact Info) Description 11/13/2012 Correspondence [facility] Radiology [address] [place] [address] Radiology, Provider MRI SAFETY SHEET AND COMPATIBILITY [...] RADIOLOGY, PROVIDER - 11/13/2012 12:00 AM CST TED CIRCUIT BOARDS CONTACT PRINTER documented in this encounter Plan of Treatment Not on file documented as of this encounter Visit Diagnoses Not on filedocumented in this encounter Care Teams Fire Captain Relationship Specialty Start Date End Date Franklin Squires MD 100 [facility] [place] [address] PCP - General Family Practice 03/08/16 documented as of this encounter
--- OUTSIDE RECORDS SUMMARY | 2024-05-25 12:51 | XMS_ITS | Encounter Summary ---
Author Organization [facility] Address [address] [address] Care Team Providers Care Percussion Tuner Name Role Phone Franklin Squires MD Primary [...] on filedocumented in this encounter Care Teams Percussion Tuner Relationship Specialty Start Date End Date Franklin Squires MD 100 [facility] [place] [address] PCP - General Family Practice 03/08/16 documented as of this encounter
--- OUTSIDE RECORDS SUMMARY | 2024-05-25 12:51 | XMS_ITS | Encounter Summary ---
Author Organization [facility] [address], [place] [address] Care Team Providers Care Compressed Gas Equipment Mechanic Name Role Phone Franklin Squires MD Primary Care Provider [phone] Encounter Details Date Type Department Care Team (Late st Contact Info) Description 02/05/2014 Correspondence [facility] Physical Therapy [address] [place] [address] Trudi Raymundo, PT [address] [place] [address] LETTER OF MEDICAL NECESSITY FOR A WHEELCHAIR [...] on filedocumented in this encounter Care Teams Compressed Gas Equipment Mechanic Relationship Specialty Start Date End Date Franklin Squires MD 100 [facility] [place] [address] PCP - General Family Practice 03/08/16 documented as of this encounter
--- OUTSIDE RECORDS SUMMARY | 2024-05-25 12:51 | XMS_ITS | Encounter Summary ---
Author Organization [facility] Address [address] [address] Care Team Providers Care Outside Sales Associate Name Role Phone Franklin Squires MD Primary Care Provider [phone] Encounter Details Date Type Department Care Team (Late st Contact Info) Description 07/28/2014 Outside Hospital External to External, Provider No address [address] ER VISIT/TRANSFER Social History Tobacco Use [...] filedocumented in this encounter Care Teams Outside Sales Associate Relationship Specialty Start Date End Date Franklin Squires MD 100 [facility] [place] [address] PCP - General Family Practice 03/08/16 documented as of this encounter
--- OUTSIDE RECORDS SUMMARY | 2024-05-25 12:51 | XMS_ITS | Encounter Summary ---
Author Organization [facility] Address [address] [address] Care Team Providers Care Bass Fisher Name Role Phone Franklin Squires MD Primary Care Provider Encounter Details Date Type Department Care Team (Late st Contact Info) Description 06/11/2014 Correspondence [facility] 401 Physical Medicine 401 [facility] [place] [address] May Randle MD [address] [place] [address] [facility] Social History Tobacco Use Types Packs/Day [...] on filedocumented in this encounter Care Teams Bass Fisher Relationship Specialty Start Date End Date Franklin Squires MD 100 [facility] [place] [address] PCP - General Family Practice 03/08/16 documented as of this encounter
--- OUTSIDE RECORDS SUMMARY | 2024-05-25 12:51 | XMS_ITS | Encounter Summary ---
Author Organization [facility] Address [address] [address] Care Team Providers Care Music Director Name Role Phone Franklin Squires MD Primary Care Provider Encounter Details Date Type Department Care Team (Late st Contact Info) Description 06/07/2015 Correspondence [facility] Radiology [address] [place] [address] Radiology, Provider MRI SAFETY SHEET AND COMPATIBILITY [...] on filedocumented in this encounter Care Teams Music Director Relationship Specialty Start Date End Date Franklin Squires MD [address] [place], [place] [address] [address] PCP - General Family Practice 03/08/16 documented as of this encounter
--- OUTSIDE RECORDS SUMMARY | 2024-05-25 12:51 | XMS_ITS | Encounter Summary ---
Author Organization [facility] Address [address] [address] Care Team Providers Care Pipe Smoking Machine Operator Name Role Phone Franklin Squires MD Primary Care Provider Encounter Details Date Type Department Care Team (Late st Contact Info) Description 08/22/2014 Outside Hospital External to [facility] H[facility]/C SUMMARY Social History Tobacco Use [...] filedocumented in this encounter Care Teams Pipe Smoking Machine Operator Relationship Specialty Start Date End Date Franklin Squires MD 100 [facility] [place] [address] PCP - General Family Practice 03/08/16 documented as of this encounter
--- OUTSIDE RECORDS SUMMARY | 2024-05-25 12:51 | XMS_ITS | Encounter Summary ---
Author Organization [facility] Address [address] [address] Care Team Providers Care Plastic Printer Name Role Phone Franklin Squires MD Primary Care Provider [phone] Encounter Details Date Type Department Care Team (Late st Contact Info) Description 09/17/2013 Correspondence External to External, [place] [address] EMPOWERMENT RULES Social History Tobacco Use Types [...] External, Provider - 09/17/2013 12:00 AM CST FLUIDS HANDLER documented in this encounter Plan of Treatment Not on file documented as of this encounter Visit Diagnoses Not on filedocumented in this encounter Care Teams Plastic Printer Relationship Specialty Start Date End Date Franklin Squires MD 100 [facility] [place] [address] PCP - General Family Practice 03/08/16 documented as of this encounter
--- OUTSIDE RECORDS SUMMARY | 2024-05-25 12:51 | XMS_ITS | Encounter Summary ---
Author Organization [facility] Address [address], [place] [address] Care Team Providers Care Rotary Filter Operator Name Role Phone Franklin Squires MD Primary Care Provider [phone] Encounter Details Date Type Department Care Team (Late st Contact Info) Description 08/20/2014 Outside Hospital External to [facility] Social History Tobacco Use [...] filedocumented in this encounter Care Teams Rotary Filter Operator Relationship Specialty Start Date End Date Franklin Squires MD [address] [place], [place] [address] [address] PCP - General Family Practice 03/08/16 documented as of this encounter
--- OUTSIDE RECORDS SUMMARY | 2024-05-25 12:51 | XMS_ITS | Encounter Summary ---
Author Organization [facility] Address [address] [address] Care Team Providers Care Oven Roaster Name Role Phone Franklin Squires MD Primary Care Provider Encounter Details Date Type Department Care Team (Latest Contact Info) Description 06/04/2014 Correspondence [facility] 401 Interventional Pain Management 401 [facility] [place] [address] Zelalem Cohen, DO [address] [place] [address] MEDICAID PT INFORMATION EMPI RECOVERY Social History [...] filedocumented in this encounter Care Teams Oven Roaster Relationship Specialty Start Date End Date Franklin Squires MD 100 [facility] CenterLES [place] [address] PCP - General Family Practice 03/08/16 documented as of this encounter
--- OUTSIDE RECORDS SUMMARY | 2024-05-25 12:51 | XMS_ITS ---
Author Organization [facility] Address [address] [address] Care Team Providers Care Grounds Caretaker Name Role Phone Franklin Squires MD Primary [...] treatments are documented for this patient in [facility]. Treatments may have been administered in another system. Resolved Problems Problem Noted Date Diagnosed Date Resolved Date Gait abnormality 01/17/2012 02/09/2015 Back pain 01/17/2012 02/09/2015 Paraplegia 04/04/2011 02/09/2015 Osteoporosis 03/06/2011 02/09/2015 Urinary tract infection 12/24/200603/11
--- OUTSIDE RECORDS SUMMARY | 2024-05-25 12:51 | XMS_ITS | Encounter Summary ---
Author Organization [facility] Address [address] [address] Care Team Providers Care Glycerin Operator Name Role Phone Franklin Squires MD Primary Care Provider [phone] Encounter Details Date Type Department Care Team (Latest Contact Info) Description 12/11/2017 Correspondence Physiatry/Physical Medicine at [facility] 295 [place] [address] May Randle MD [address] [place] [address] [employer] Social History Tobacco Use [...] on filedocumented in this encounter Care Teams Glycerin Operator Relationship Specialty Start Date End Date Franklin Squires MD [address] [place] [address] [place] [address] PCP - General Family Practice 03/08/16 documented as of this encounter
--- OUTSIDE RECORDS SUMMARY | 2024-05-25 12:51 | XMS_ITS | Encounter Summary ---
Author Organization [facility] Address [address], [place] [address] Care Team Providers Care Technicians And Trades Workers Name Role Phone Franklin Squires MD Primary Care Provider Encounter Details Date Type Department Care Team (Late st Contact Info) Description 03/11/2014 Correspondence [facility] 401 Interventional Pain Management 401 [place] [address] Zelalem Cohen, DO [address] [place] [address] EMPI Social History Tobacco Use Types Packs/Day [...] on filedocumented in this encounter Care Teams Technicians And Trades Workers Relationship Specialty Start Date End Date Franklin Squires MD 100 [facility] [place] [address] PCP - General Family Practice 03/08/16 documented as of this encounter
--- OUTSIDE RECORDS SUMMARY | 2024-05-25 12:51 | XMS_ITS | Encounter Summary ---
Author Organization [facility] Address [address] [address] Care Team Providers Care Sign Erector And Repairer Name Role Phone Franklin Squires MD Primary Care Provider Encounter Details Date Type Department Care Team (Late st Contact Info) Description 01/06/2016 Correspondence [facility] Radiology [address] [place] [address] Radiology, Provider MRI SAFETY SHEET AND COMPATIBILITY [...] on filedocumented in this encounter Care Teams Sign Erector And Repairer Relationship Specialty Start Date End Date Franklin Squires MD [address] [place], [place] [address] [address] PCP - General Family Practice 03/08/16 documented as of this encounter
--- OUTSIDE RECORDS SUMMARY | 2024-05-25 12:51 | XMS_ITS | Encounter Summary ---
Author Organization [facility] Address [address], [place] [address] Care Team Providers Care Master Control Technician Name Role Phone Franklin Squires MD Primary Care Provider [phone] Encounter Details Date Type Department Care Team (Late st Contact Info) Description 04/24/2012 Correspondence [facility] Radiology [address] [place] [address] Radiology, Provider MRI SAFETY SHEET AND COMPATIBILITY [...] filedocumented in this encounter Care Teams Master Control Technician Relationship Specialty Start Date End Date Franklin Squires MD 100 [facility] [place] [address] PCP - General Family Practice 03/08/16 documented as of this encounter
--- OUTSIDE RECORDS SUMMARY | 2024-05-25 12:51 | XMS_ITS | Encounter Summary ---
Author Organization [facility] [address] [address] Care Team Providers Care Career Development Associate Name Role Phone Franklin Squires MD Primary Care Provider Encounter Details Date Type Department Care Team (Late st Contact Info) Description 07/08/2015 Correspondence [facility] Physical Therapy [address] [place] [address] Trudi Raymundo, PT [address] [place] [address] ADDENDUM FOR LETTER OF MEDICAL NECESSITY Social [...] filedocumented in this encounter Care Teams Career Development Associate Relationship Specialty Start Date End Date Franklin Squires MD 100 [facility] [place] [address] PCP - General Family Practice 03/08/16 documented as of this encounter
--- OUTSIDE RECORDS SUMMARY | 2024-05-25 12:51 | XMS_ITS | Encounter Summary ---
Author Organization [facility] Address [address], [place] [address] Care Team Providers Care Patient Financial Services Coordinator Name Role Phone Franklin Squires MD Primary Care Provider [phone] Encounter Details Date Type Department Care Team (Late st Contact Info) Description 12/16/2014 Correspondence External to External, [place] [address] MEDICARE PLAN OF CARE RECERT Social History [...] filedocumented in this encounter Care Teams Patient Financial Services Coordinator Relationship Specialty Start Date End Date Franklin Squires MD [address] [place] [address] [place] [address] PCP - General Family Practice 03/08/16 documented as of this encounter
--- OUTSIDE RECORDS SUMMARY | 2024-05-25 12:51 | XMS_ITS | Encounter Summary ---
Author Organization [facility] Address [address], [place] [address] Care Team Providers Care Blue Prints Trimmer Name Role Phone Franklin Squires MD Primary Care Provider Encounter Details Date Type Department Care Team (Late st Contact Info) Description 05/04/2014 Correspondence [facility] 401 Physical Medicine 401 [place] [address] May Randle MD [address] [place] [address] LETTER OF MEDICAL NECESSITY FOR A WHEELCHAIR [...] filedocumented in this encounter Care Teams Blue Prints Trimmer Relationship Specialty Start Date End Date Franklin Squires MD 100 [facility] [place] [address] PCP - General Family Practice 03/08/16 documented as of this encounter
--- OUTSIDE RECORDS SUMMARY | 2024-05-25 12:51 | XMS_ITS | Encounter Summary ---
Author Organization [facility] [address], [place] [address] Care Team Providers Care Powder Mill Operator Name Role Phone Franklin Squires MD Primary Care Provider Encounter Details Date Type Department Care Team (Late st Contact Info) Description 11/10/2014 Correspondence [facility] Physical Therapy [address] [place] [address] Trudi Raymundo, PT [address] [place] [address] LETTER OF MEDICAL NECESSITY Social History Tobacco [...] on filedocumented in this encounter Care Teams Powder Mill Operator Relationship Specialty Start Date End Date Franklin Squires MD 100 [facility] [place] [address] PCP - General Family Practice 03/08/16 documented as of this encounter
--- OUTSIDE RECORDS SUMMARY | 2024-05-25 12:51 | XMS_ITS | Encounter Summary ---
Author Organization [facility] Address [address], [place] [address] Care Team Providers Care Groundman/Lineman Name Role Phone Franklin Squires MD Primary Care Provider Encounter Details Date Type Department Care Team (Late st Contact Info) Description 01/08/2013 Scanned History External to Transferred Record, Provider [facility] Social History Tobacco Use Types Packs/Day [...] on filedocumented in this encounter Care Teams Groundman/Lineman Relationship Specialty Start Date End Date Franklin Squires MD 100 [facility] [place] [address] PCP - General Family Practice 03/08/16 documented as of this encounter
== END 2024-05-25 12:48 | disposition home or self-care (01) ==
LOC: WOUND 12:47
PROVIDERS: PCP Family Medicine; Visit Provider Physician Assistant Surgical
DX: L89.324 Pressure ulcer of left buttock, stage 4 (principal); G82.50 Quadriplegia, unspecified
CPT/HCPCS: 11043

== ENCOUNTER 2024-06-01 12:40 | Outpatient (CLI) | payer MEDICARE, OTHER, SELFPAY ==
--- OUTSIDE RECORDS SUMMARY | 2024-06-01 12:42 | XMS_ITS | Continuity of Care Document ---
Author Name [facility] Organization [facility] Care Team Providers Care Zoo Caretaker Name Role Phone [facility] Unavailable Unavailable Problems Combined list of problems from 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 It does not include entries that were removed or entered in error. Problem Status Onset Date Problem Type Date of Resolution Comments Source Abnormal liver function Active Condition [facility] Anemia ([facility] 931584018) Active Condition [facility] Anxiety ([facility] 59000452) Active Condition [facility] Autonomic dysreflexia Active Condition [facility] Chronic Pain Syndrome ([facility] 532049415) Active Condition [facility] Colostomy present Active Condition [facility] Constipation ([facility] 57030744) Active Condition [facility] Continuous opioid dependence Active Condition [facility] COPD - Chronic Obstructive Pulmonary Disease ([facility] 06551224) Active Condition [facility] Dementia Active Condition [facility] Depression ([facility] 21416518) Active Condition [facility] Diabetes Mellitus Type 2 (SCT 15101436) Active Condition [facility] Ependymoma of spinal cord Active Condition [facility] Hearing Loss ([facility] 21990439) Active Condition [facility] History of Deep Vein Thrombosis ([facility] 713709291) Active Condition [facility] History of pressure injury Active Condition [facility] HTN - Hypertension ([facility] 49149903) Active Condition [facility] Hyperlipidemia ([facility] 60898013) Active Condition [facility] Hyponatremia Active Condition [facility] Long-term current use of anticoagulant Active Condition [facility] Neurogenic Bladder ([facility] 895942209) Active Condition [facility] Neurogenic bowel Active Condition [facility] Osteoporosis ([facility] 56459249) Active Condition [facility] Paraplegia Active Condition [facility] Spasticity Active Condition [facility] Suprapubic urinary catheter in situ Active Condition [facility] Supraventricular tachycardia Active Condition [facility] Tinnitus ([facility] 64929245) Active Condition [facility] Vitamin D Deficiency ([facility] 1277209) Active Condition [facility] Diagnosis: ICD-10-CM Z73.6 Limitation of activities due to disability Active Diagnosis [facility] Diagnosis: ICD-10-CM G82.20 Paraplegia, unspecified Active Diagnosis [facility] Diagnosis: ICD-10-CM Z43.3 Encounter for attention to colostomy Active Diagnosis [facility] Diagnosis: ICD-10-CM Z71.3 Dietary counseling and surveillance Active Diagnosis [facility] Diagnosis: ICD-10-CM F32.A Depression, unspecified Active Diagnosis [facility] Medications Combined list of outpatient medications from Department of Defense and [facility] Affairs facilities.Medications provided include 1) [facility] Jagdish BARRETT 2022 [facility] AMLODIPINE BESYLATE (AMLODIPINE BESYLATE), 5 MG, TABLET, ORAL, [employer] 1000 ea. BOTTLE Active [id number] 4 2023 90 Pharmac y Data Transac tion Service Facilit y AMLODIPINE BESYLATE (amlodipine besylate), 5 MG, TABLET, ORAL, [employer], 1000 ea. BOTTLE Active [id number] 2023 90 Pharmac y Data Transac tion Service Facilit y AMLODIPINE BESYLATE 2.5MG TAB AMLODIPI NE BESYLATE 2.5MG TAB Non-VA TAKE TWO TABLETS BY MOUTH EVERY MORNING Feb 05, 2023 [place] Document ed by: PIPO BARERTT Document ed at: [facility] ORAL ACTIVE Jagdish BARRETT 2022 [facility] AMOX TR-POTASSIU M CLAVULANATE (AMOXICILLI N/POTASSIUM CLAV), 875-125 MG, TABLET, ORAL, [employer] [place], 20 ea. BOTTLE Active [id number] 2022 14 Pharmac y Data Transac tion Service Facilit y AMOXICILLIN -CLAVULANAT E POTASS (amoxicilli n/potassium clavulanate ), 875-125 MG, TABLET, ORAL, [employer] [place],, 20 ea. BOTTLE Active [id number] 2023 20 Pharmac y Data Transac tion Service Facilit y AMOXICILLIN -CLAVULANAT E POTASS (amoxicilli n/potassium clavulanate ), 875-125 MG, TABLET, ORAL, [employer] [place],, 20 ea. BOTTLE Active [id number] 2023 56 Pharmac y Data Transac tion Service Facilit y ARIPIPRAZOL E (aripiprazo le), 2 MG, TABLET, ORAL, [employer]ARMACE, 500 ea. BOTTLE Active [id number] 2023 180 Pharmac y Data Transac tion Service Facilit y ARIPIPRAZOL E (aripiprazo le), 2 MG, TABLET, ORAL, [employer], 500 ea. BOTTLE Active [id number] 2023 180 Pharmac y Data Transac tion Service Facilit y ARIPIPRAZOL E TAB ARIPIPRA ZOLE TAB Non-VA TAKE 2MG BY MOUTH TWICE A DAY May 29, 2022 Non-VA Document ed by: SHANTAL HANSON Document ed at: [facility]AL ACT[facility] Jey HANSON 2021 [facility] ATIVAN (LORAZEPAM) , 0.5 MG, TABLET, ORAL, VALEANT, 100 ea. BOTTLE Active [id number] 2023 120 Pharmac y Data Transac [...] BIOCON PHARMA I, 1000 ea. BOTTLE Active [id number] 2023 90 Pharmac y Data Transac tion Service Facilit y ATORVASTATI N CALCIUM (atorvastat in calcium), 40 MG, TABLET, ORAL, BI[employer] PHARMA I, 1000 ea. BOTTLE Active [id number] 2023 90 Pharmac y Data Transac tion Service Facilit y BACLOFEN (baclofen), 20 MG, TABLET, ORAL, [employer] 1000 ea. BOTTLE Active [id number] 2023 540 Pharmac y Data Transac tion Service Facilit y BACLOFEN (baclofen), 20 MG, TABLET, ORAL, [employer]., 1000 ea. BOTTLE Active [id number] 2023 540 Pharmac y Data Transac tion Service Facilit y BACLOFEN 20MG TAB BACLOFEN 20MG TAB Non-VA TAKE TWO TABLETS BY MOUTH THREE TIMES A DAY Feb 05, 2023 Non-[place] Document ed by: PIPO BARRETT Document ed at: [facility] ORAL ACTIVE Jagdish BARRETT 2022 [facility] BUPROPION HCL 150MG 12HR TAB,SA BUPROPIO N HCL 150MG 12HR TAB,SA Non-VA TAKE ONE TABLET BY MOUTH TWICE A DAY May 29, 2022 Non-VA Document ed by: SHANTAL HANSON Document ed at: [facility] ORAL ACTIVE Jey HANSON 2021 [facility] BUPROPION HCL SR (bupropion HCl), 150 MG, TAB SR 12H, ORAL, [employer], 60 ea. BOTTLE Active [id number] 2023 180 Pharmac y Data Transac tion Service Facilit y BUPROPION HCL SR (bupropion HCl), 150 MG, TAB SR 12H, ORAL, P[employer]EL [employer]ARMACE[employer], 60 ea. BOTTLE Active [id number] 2023 180 Pharmac y Data Transac [...] ORAL, AUROB[employer] PHARM, 50 ea. BOTTLE Active [id number] 2023 70 Pharmac y Data Transac tion Service Facilit y DONEPEZIL HCL (DONEPEZIL HCL), 5 MG, TABLET, ORAL, [employer] 1000 ea. BOTTLE Active [id number] 2023 90 Pharmac y Data Transac tion Service Facilit y DONEPEZIL HCL (DONEPEZIL HCL), 5 MG, TABLET, ORAL, [employer] 1000 ea. BOTTLE Cancele d [id number] : 2023 0 Pharmac y Data Transac tion Service Facilit y DONEPEZIL HCL (DONEPEZIL HCL), 5 MG, TABLET, ORAL, [employer] 1000 ea. BOTTLE Active [id number] 2023 90 Pharmac y Data Transac tion Service Facilit y DONEPEZIL HCL 10MG TAB DONEPEZI L HCL 10MG TAB Non-VA TAKE ONE-HALF TABLET BY MOUTH EVERY DAY May 29, 2022 Non-VA Document ed by: SHANTAL HANSON Document ed at: [facility] ORAL ACTIVE Jey HANSON 2021 [facility] DULOXETINE HCL (duloxetine HCl), 60 MG, CAPSULE DR, ORAL, [employer] 1000 ea. BOTTLE Active [id number] 2023 180 Pharmac y Data Transac tion Service Facilit y DULOXETINE HCL (duloxetine HCl), 60 MG, CAPSULE DR, ORAL, [employer] 1000 ea. BOTTLE Active [id number] 2023 180 Pharmac y Data Transac tion Service Facilit y DULOXETINE HCL 30MG CAP,EC DULOXETI NE HCL 30MG CAP,EC Non-VA TAKE 2 CAPSULES BY MOUTH TWICE A DAY May 29, 2022 Non-VA Document ed by: SHANTAL HANSON Document ed at: [facility] ORAL ACTIVE Jey HANSON 2021 [facility] FAMOTIDINE (famotidine ), 20 MG, TABLET, ORAL, [employer] 1000 ea. BOTTLE Active [id number] 2023 180 Pharmac y Data Transac tion Service Facilit y FAMOTIDINE 20MG TAB FAMOTIDI NE 20MG TAB Non-VA TAKE ONE TABLET BY MOUTH TWICE A DAY May 29, 2022 Non-VA Document ed by: SHANTAL HANSON Document ed at: [facility] ORAL ACTIVE Jey HANSON 2021 [facility] FUROSEMIDE (furosemide ), 40 MG, TABLET, ORAL, [employer] [facility], 1000 ea. BOTTLE Active [id number] 2023 180 Pharmac y Data Transac tion Service Facilit y FUROSEMIDE 40MG TAB FUROSEMI DE 40MG TAB Non-VA TAKE ONE TABLET BY MOUTH TWICE A DAY May 29, 2022 Non-VA Document ed by: SHANTAL HANSON Document ed at: [facility] ORAL ACTIVE Jey HANSON 2021 [facility] GABAPENTIN (gabapentin ), 400 MG, CAPSULE, ORAL, [employer] 500 ea. BOTTLE Active [id number] 2023 270 Pharmac y Data Transac tion Service Facilit y GABAPENTIN (gabapentin ), 400 MG, CAPSULE, ORAL, [employer] PHARMAC, 500 ea. BOTTLE Active [id number] 2023 270 Pharmac y Data Transac tion Service Facilit y GABAPENTIN (gabapentin ), 400 MG, CAPSULE, ORAL, [employer] PHARMACE, 500 ea. BOTTLE Cancele d [id number] : 2023 0 Pharmac y Data Transac [...] ORAL, [employer]ARM, 500 ea. BOTTLE Active [id number] 2023 120 Pharmac y Data Transac tion Service Facilit y LORAZEPAM (lorazepam) , 0.5 MG, TABLET, ORAL, [employer]AR[employer], 1000 ea. BOTTLE Active [id number] 2023 120 Pharmac y Data Transac tion Service Facilit y LORAZEPAM (lorazepam) , 0.5 MG, TABLET, ORAL, [employer]AR[employer], 1000 ea. BOTTLE Active [id number] 2023 120 Pharmac y Data Transac tion Service Facilit y LORAZEPAM (lorazepam) , 0.5 MG, TABLET, ORAL, [employer], 1000 ea. BOTTLE Active [id number] 2023 120 Pharmac y Data Transac tion Service Facilit y LORAZEPAM (lorazepam) , 0.5 MG, TABLET, ORAL, [employer], 500 ea. BOTTLE Active [id number] 2023 120 Pharmac y Data Transac tion Service Facilit y LORAZEPAM 0.5MG TAB LORAZEPA M 0.5MG TAB Non-VA TAKE ONE TABLET BY MOUTH THREE TIMES A DAY AND TAKE TWO TABLETS BY MOUTH AT BEDTIME Feb 05, 2023 Non-VA Document ed by: PIPO BARRETT Document ed at: [facility] ORAL ACTIVE Jagdish BARRETT 2022 [facility] MILK OF MAG[place] MILK OF [...] [facility] Jagdish BARRETT 2022 [facility] OXYCODONE HCL (OXYCODONE HCL), 10 MG, TABLET, ORAL, [employer] 100 ea. BOTTLE Active [id number] 2023 120 Pharmac y Data Transac tion Service Facilit y OXYCODONE HCL (OXYCODONE HCL), 10 MG, TABLET, ORAL, [employer] 100 ea. BOTTLE Active [id number] 2023 120 Pharmac y Data Transac tion Service Facilit y OXYCODONE HCL (OXYCODONE HCL), 10 MG, TABLET, ORAL, [employer] 100 ea. BOTTLE Active [id number] 2023 120 Pharmac y Data Transac tion Service Facilit y OXYCODONE HCL (OXYCODONE HCL), 10 MG, TABLET, ORAL, [employer] 100 ea. BOTTLE Active [id number] 2023 120 Pharmac y Data Transac tion Service Facilit y OXYCODONE HCL (OXYCODONE HCL), 10 MG, TABLET, ORAL, [employer] 100 ea. BOTTLE Active [id number] 2023 120 Pharmac y Data Transac tion Service Facilit y OXYCODONE HCL (OXYCODONE HCL), 10 MG, TABLET, ORAL, [employer] 100 ea. BOTTLE Active [id number] 2023 120 Pharmac y Data Transac tion Service Facilit y OXYCODONE HCL (OXYCODONE HCL), 10 MG, TABLET, ORAL, [employer] 100 ea. BOTTLE Active [id number] 2022 120 Pharmac y Data Transac tion Service Facilit y OXYCODONE HCL 5MG TAB OXYCODON E HCL 5MG TAB Non-VA TAKE TWO TABLETS BY MOUTH FOUR TIMES A DAY Feb 05, 2023 Non-[place] Document ed by: PIPO BARRETT [facility] ed [facility] Jagdish BARRETT 2022 [facility] POTASSIUM CHLORIDE (potassium chloride), 10 MEQ, TAB ER PRT, ORAL, [employer]ACE, 100 ea. BOTTLE Active [id number] 2023 180 Pharmac y Data Transac tion Service Facilit y POTASSIUM CHLORIDE (potassium chloride), 10 MEQ, TAB ER PRT, ORAL, [employer]ACE, 100 ea. BOTTLE Active [id number] 2023 180 Pharmac y Data Transac tion Service Facilit y POTASSIUM CHLORIDE (potassium chloride), 20 MEQ, TAB ER PRT, ORAL, [employer] PH[employer]ACE, 100 ea. BOTTLE Active [id number] 2023 90 Pharmac y Data Transac [...] WHITLOCK&N/UNI LUIS, 30 g TUBE Cancele d [id number] : 2023 0 Pharmac y Data Transac tion Service Facilit y WARFARIN SODIUM (warfarin sodium), 5 MG, TABLET, ORAL, [employer] 1000 ea. BOTTLE Cancele d [id number] : 2022 0 Pharmac y Data Transac tion Service Facilit y WARFARIN SODIUM (WARFARIN SODIUM), 5 MG, TABLET, ORAL, [employer] [place], 1000 ea. BOTTLE Active [id number] 2023 25 Pharmac y Data Transac tion Service Facilit y WARFARIN SODIUM (WARFARIN SODIUM), 5 MG, TABLET, ORAL, [employer] [place], 1000 ea. BOTTLE Active [id number] 2023 12 Pharmac y Data Transac tion Service Facilit y WARFARIN SODIUM (WARFARIN SODIUM), 5 MG, TABLET, ORAL, [employer] [place], 1000 ea. BOTTLE Active [id number] 2023 40 Pharmac y Data Transac tion Service Facilit y WARFARIN SODIUM (WARFARIN SODIUM), 5 MG, TABLET, ORAL, [employer] [place], 1000 ea. BOTTLE Cancele d [id number] : 2022 0 Pharmac y Data Transac tion Service Facilit y WARFARIN SODIUM (warfarin sodium), 7.5 MG, TABLET, ORAL, [employer] [place], 100 ea. BOTTLE Active [id number] 2023 51 Pharmac y Data Transac tion Service Facilit y WARFARIN SODIUM (warfarin sodium), 7.5 MG, TABLET, ORAL, [employer] [place], 100 ea. BOTTLE Active [id number] 2023 78 Pharmac y Data Transac tion Service Facilit y WARFARIN TAB WARFARIN TAB Non-VA TAKE 5MG BY MOUTH SUN/THUR S AND TAKE 7.5MG BY MOUTH ALL OTHER DAYS Feb 05, 2023 Non-VA Document ed by: PIPO BARRETT Document ed at: [facility] ORAL ACTIVE Jagdish BARRETT 2022 [facility] Allergies, Adverse Reactions, Alerts Combined list of allergies from 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 It does not include entries that were removed or entered in error. Substance Category Reaction Severity Reaction type Status Date Reported Comments Source AMOXICILLIN Propensity to adverse reactions to drug (finding) Eruption active 2 [facility] METOLAZONE Propensity to adverse reactions to drug (finding) Itching active 2 [facility] MORPHINE Propensity to adverse reactions to drug (finding) Delirium active 2 [facility] PIPERACILLIN Propensity to adverse reactions to drug (finding) Eruption active 2 [facility] SULFA DRUGS Propensity to adverse reactions to drug (finding) Eruption active 2 [facility] TAZOBACTAM SODIUM Propensity to adverse reactions to drug (finding) Eruption active 2 [facility] Immunizations Combined list of available immunizations from the 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 Immunization Series Date Given Administered By Site Reaction Lot Number CVX Code Drug Breadman Status Comments Source COVID-19 (Promosome), MRNA, LNP-S, BIVALENT, PF, 30 MCG/0.3 ML DOSE 2021 300 complet ed [facility] INFLUENZA, ADJUVANTED, QUADRIVALENT, PF 2021 205 complet ed [facility] INFLUENZA, UNSPECIFIED FORMULATION 2021 88 complet ed [facility] TD (ADULT), 5 LF TETANUS TOXOID, PRESERVATIVE FREE, ADSORBED 2021 113 complet ed [facility] INFLUENZA, ADJUVANTED, QUADRIVALENT, PF 2020 205 complet ed [facility] INFLUENZA, UNSPECIFIED FORMULATION 2020 88 complet ed [facility] COVID-19 (Promosome), MRNA, LNP-S, PF, 30 MCG/0.3 ML DOSE 3 2020 208 complet ed [facility] COVID-19 (Promosome), MRNA, LNP-S, PF, 30 MCG/0.3 ML DOSE 2 2020 208 complet ed [facility] COVID-19 (PFIZER), MRNA, LNP-S, PF, 30 MCG/0.3 ML DOSE 1 2020 208 complet ed [facility] INFLUENZA, ADJUVANTED, QUADRIVALENT, PF 2019 205 complet ed [facility] INFLUENZA, ADJUVANTED, TRIVALENT, PF 2018 168 complet ed [facility] INFLUENZA, ADJUVANTED, TRIVALENT, PF 2017 168 complet ed [facility] INFLUENZA, HIGH-DOSE, TRIVALENT, PF 2016 135 complet ed [facility] INFLUENZA, ADJUVANTED, TRIVALENT, PF 2016 168 complet ed [facility] INFLUENZA, HIGH-DOSE, TRIVALENT, PF 2015 135 complet ed [facility] ZOSTER LIVE 2015 121 complet ed [facility] PNEUMOCOCCAL CONJUGATE PCV 13 2014 133 complet ed [facility] INFLUENZA, HIGH-DOSE, TRIVALENT, PF 2014 135 complet ed [facility] INFLUENZA, HIGH-DOSE, TRIVALENT, PF 2013 135 complet ed [facility] INFLUENZA, UNSPECIFIED FORMULATION 2013 88 complet ed [facility] INFLUENZA, SPLIT VIRUS, TRIVALENT, PRESERVATIVE 2012 141 complet ed [facility] ZOSTER LIVE 2012 121 complet ed [facility] INFLUENZA, SPLIT VIRUS, TRIVALENT, PRESERVATIVE 2011 141 complet ed [facility] INFLUENZA, SPLIT VIRUS, TRIVALENT, PF 2010 140 complet ed [facility] PNEUMOCOCCAL POLYSACCHARID E PPV23 2010 33 complet ed [facility] TDAP 2010 115 complet ed [facility] INFLUENZA, SPLIT VIRUS, TRIVALENT, PRESERVATIVE 2009 141 complet [facility] NOVEL INFLUENZA-H1N 1-09, ALL FORMULATIONS 2009 128 complet ed [facility] INFLUENZA, SPLIT VIRUS, TRIVALENT, PF 2008 140 complet ed [facility] PNEUMOCOCCAL POLYSACCHARID E PPV23 2008 33 complet ed [facility] INFLUENZA, SPLIT VIRUS, TRIVALENT, PRESERVATIVE 2008 141 complet ed [facility] INFLUENZA, SPLIT VIRUS, TRIVALENT, PRESERVATIVE 2007 141 complet ed [facility] INFLUENZA, SPLIT VIRUS, TRIVALENT, PRESERVATIVE 2005 141 complet ed [facility] INFLUENZA, SPLIT VIRUS, TRIVALENT, PRESERVATIVE 2004 141 complet ed [facility] PNEUMOCOCCAL POLYSACCHARID E PPV23 2004 33 complet ed [facility] INFLUENZA, SPLIT VIRUS, TRIVALENT, PRESERVATIVE 2003 141 complet ed [facility] Results Combined list of recent chemistry, [...] 03:10 PM Reporting Lab: [facility] [address] Performing Lab: [facility] [address] [place] [facility] CYSTATIN C WITH EGFR CYSTATIN C AND GLOMERULAR FILTRATION RATE BY CYSTATIN C-BASED FORMULA PANEL - SERUM OR PLASMA 53 60 02/13 L Specimen Type: PLASMA No comment entered. Ordering Provider: ANKUSH BOWMAN Report Released Date/Time: Feb 05, 2023 03:10 PM Reporting Lab: [facility] [address] Performing Lab: [facility] [address] [place] [facility] BASIC METABOLI C PANEL+MG CREATININE [MASS/VOLU ME] IN SERUM OR PLASMA 0.7 mg/dL 0.7 - 1.2 02/13 Specimen Type: PLASMA No comment entered. Ordering Provider: ANKUSH BOWMAN Report Released Date/Time: Feb 05, 2023 03:10 PM Reporting Lab: [facility] [address] Performing Lab: [facility] [address] [place] [facility] BASIC METABOLI C PANEL+MG UREA NITROGEN [MASS/VOLU ME] IN SERUM OR PLASMA 15 mg/dL 8 - 02/13 Specimen Type: PLASMA No comment entered. Ordering Provider: ANKUSH BOWMAN Report Released Date/Time: Feb 05, 2023 03:10 PM Reporting Lab: [facility] [address] Performing Lab: [facility] [address] [place] [facility] BASIC METABOLI C PANEL+MG GLUCOSE [MASS/VOLU ME] IN SERUM OR PLASMA 140 mg/dL 70 - 100 02/13 H Specimen Type: PLASMA No comment entered. Ordering Provider: ANKUSH BOWMAN Report Released Date/Time: Feb 05, 2023 03:10 PM Reporting Lab: [facility] [address] Performing Lab: [facility] [address] [place] [facility] BASIC METABOLI C PANEL+MG SODIUM [MOLES/VOL UME] IN SERUM OR PLASMA 135 mmol/L 136 - 145 02/13 L Specimen Type: PLASMA No comment entered. Ordering Provider: ANKUSH BOWMAN Report Released Date/Time: Feb 05, 2023 03:10 PM Reporting Lab: [facility] [address] Performing Lab: [facility] [address] [place] [facility] BASIC METABOLI C PANEL+MG POTASSIUM [MOLES/VOL UME] IN SERUM OR PLASMA 4.0 mmol/L 3.5 - 5.1 02/13 Specimen Type: PLASMA No comment entered. Ordering Provider: ANKUSH BOWMAN Report Released Date/Time: Feb 05, 2023 03:10 PM Reporting Lab: [facility] [address] Performing Lab: [facility] [address] [place] [facility] BASIC METABOLI C PANEL+MG CHLORIDE [MOLES/VOL UME] IN SERUM OR PLASMA 99 mmol/L 98 - 107 02/13 Specimen Type: PLASMA No comment entered. Ordering Provider: ANKUSH BOWMAN Report Released Date/Time: Feb 05, 2023 03:10 PM Reporting Lab: [facility] [address] Performing Lab: [facility] [address] [place] [facility] BASIC METABOLI C PANEL+MG CARBON DIOXIDE, TOTAL [MOLES/VOL UME] IN SERUM OR PLASMA 29 mmol/L 22 - 29 02/13 Specimen Type: PLASMA No comment entered. Ordering Provider: ANKUSH BOWMAN Report Released Date/Time: Feb 05, 2023 03:10 PM Reporting Lab: [facility] [address] Performing Lab: [facility] [address] [place] [facility] BASIC METABOLI C PANEL+MG CALCIUM [MASS/VOLU ME] IN SERUM OR PLASMA 9.2 mg/dL 8.4 - 10.2 02/13 Specimen Type: PLASMA No comment entered. Ordering Provider: ANKUSH BOWMAN Report Released Date/Time: Feb 05, 2023 03:10 PM Reporting Lab: [facility] [address] Performing Lab: [facility] [address] [place] [facility] BASIC METABOLI C PANEL+MG MAGNESIUM [MASS/VOLU ME] IN SERUM OR PLASMA 2.0 mg/dL 1.6 - 2.6 02/13 Specimen Type: PLASMA No comment entered. Ordering Provider: ANKUSH BOWMAN Report Released Date/Time: Feb 05, 2023 03:10 PM Reporting Lab: [facility] [address] Performing Lab: [facility] [address] [place] [facility] BASIC METABOLI C PANEL+MG ANION GAP IN SERUM OR PLASMA 7 mmol/L 5 - 15 02/13 Specimen Type: PLASMA No comment entered. Ordering Provider: ANKUSH BOWMAN Report Released Date/Time: Feb 05, 2023 03:10 PM Reporting Lab: [facility] [address] Performing Lab: [facility] [address] [place] [facility] BASIC METABOLI C PANEL+MG GLOMERULAR FILTRATION RATE/1.73 SQ M.PREDICTE D [VOLUME RATE/AREA] IN SERUM, PLASMA OR BLOOD BY CREATININE -BASED FORMULA (CKD-EPI) >90 60 02/13 Specimen Type: PLASMA No comment entered. Ordering Provider: ANKUSH BOWMAN Report Released Date/Time: Feb 05, 2023 03:10 PM Reporting Lab: [facility] [address] Performing Lab: [facility] [address] [place] [facility] URINALYS IS COLOR OF URINE YELLOW 10/08 Specimen Type: URINE No comment entered. Ordering Provider: ANKUSH BOWMAN Report Released Date/Time: Sep 24, 2022 01:55 PM Reporting Lab: [facility] [address] Performing Lab: [facility] [address] [place] [facility] URINALYS IS SPECIFIC GRAVITY OF URINE 1.023 1.003 - 1.035 10/08 Specimen Type: URINE No comment entered. Ordering Provider: ANKUSH BOWMAN Report Released Date/Time: Sep 24, 2022 01:55 PM Reporting Lab: [facility] [address] Performing Lab: [facility] [address] [place] [facility] URINALYS IS BILIRUBIN. TOTAL [PRESENCE] IN URINE BY TEST STRIP NEGATIVE 10/08 Specimen Type: URINE No comment entered. Ordering Provider: ANKUSH BOWMAN Report Released Date/Time: Sep 24, 2022 01:55 PM Reporting Lab: [facility] [address] Performing Lab: [facility] [address] [place] [facility] URINALYS IS KETONES [MASS/VOLU ME] IN URINE BY TEST STRIP NEGATIVE 10/08 Specimen Type: URINE No comment entered. Ordering Provider: ANKUSH BOWMAN Report Released Date/Time: Sep 24, 2022 01:55 PM Reporting Lab: [facility] [id number] Performing Lab: [facility] [id number] [place] [facility] URINALYS IS GLUCOSE [MASS/VOLU ME] IN URINE BY TEST STRIP NEGATIVE mg/dL <30 - 30 10/08 Specimen Type: URINE No comment entered. Ordering Provider: ANKUSH BOWMAN Report Released Date/Time: Sep 24, 2022 01:55 PM Reporting Lab: [facility] [id number] Performing Lab: [facility] [id number] [place] [facility] URINALYS IS PROTEIN [MASS/VOLU ME] IN URINE BY TEST STRIP 30 mg/dL <20 - 20 10/08 Specimen Type: URINE No comment entered. Ordering Provider: ANKUSH BOWMAN Report Released Date/Time: Sep 24, 2022 01:55 PM Reporting Lab: [facility] [address] Performing Lab: [facility] [address] [place] [facility] URINALYS IS PH OF URINE BY TEST STRIP 7.5 5.0 - 8.0 10/08 Specimen Type: URINE No comment entered. Ordering Provider: ANKUSH BOWMAN Report Released Date/Time: Sep 24, 2022 01:55 PM Reporting Lab: [facility] [address] Performing Lab: [facility] [address] [place] [facility] URINALYS IS LEUKOCYTES [#/AREA] IN URINE SEDIMENT BY MICROSCOPY HIGH POWER FIELD >180/[HP F] 0 - 7 10/08 H Specimen Type: URINE No comment entered. Ordering Provider: ANKUSH BOWMAN Report Released Date/Time: Sep 24, 2022 01:55 PM Reporting Lab: [facility] [address] Performing Lab: [facility] [address] [place] [facility] URINALYS IS BACTERIA [PRESENCE] IN URINE SEDIMENT BY LIGHT MICROSCOPY MANY 10/08 Specimen Type: URINE No comment entered. Ordering Provider: ANKUSH BOWMAN Report Released Date/Time: Sep 24, 2022 01:55 PM Reporting Lab: [facility] [address] Performing Lab: [facility] [address] [place] [facility] URINALYS IS ERYTHROCYT ES [#/AREA] IN URINE SEDIMENT BY MICROSCOPY HIGH POWER FIELD 33 /[HPF] 0 - 3 10/08 H Specimen Type: URINE No comment entered. Ordering Provider: ANKUSH BOWMAN Report Released Date/Time: Sep 24, 2022 01:55 PM Reporting Lab: [facility] [address] Performing Lab: [facility] [address] [place] [facility] URINALYS IS APPEARANCE OF URINE EX.TURBI D 10/08 Specimen Type: URINE No comment entered. Ordering Provider: ANKUSH BOWMAN Report Released Date/Time: Sep 24, 2022 01:55 PM Reporting Lab: [facility] [address] Performing Lab: [facility] [address] [place] [facility] URINALYS IS EPITHELIAL CELLS.SQUA MOUS [#/AREA] IN URINE SEDIMENT BY MICROSCOPY HIGH POWER FIELD 1 /[HPF] 10/08 Specimen Type: URINE No comment entered. Ordering Provider: ANKUSH BOWMAN Report Released Date/Time: Sep 24, 2022 01:55 PM Reporting Lab: [facility] [address] Performing Lab: [facility] [address] [place] [facility] URINALYS IS HEMOGLOBIN [PRESENCE] IN URINE BY TEST STRIP 1+ 10/08 Specimen Type: URINE No comment entered. Ordering Provider: ANKUSH BOWMAN Report Released Date/Time: Sep 24, 2022 01:55 PM Reporting Lab: [facility] [address] Performing Lab: [facility] [address] [place] [facility] URINALYS IS NITRITE [PRESENCE] IN URINE BY TEST STRIP NEGATIVE 10/08 Specimen Type: URINE No comment entered. Ordering Provider: ANKUSH BOWMAN Report Released Date/Time: Sep 24, 2022 01:55 PM Reporting Lab: [facility] [address] Performing Lab: [facility] [address] [place] [facility] URINALYS IS LEUKOCYTE CLUMPS [#/VOLUME] IN URINE BY AUTOMATED COUNT PRESENT 10/08 Specimen Type: URINE No comment entered. Ordering Provider: ANKUSH BOWMAN Report Released Date/Time: Sep 24, 2022 01:55 PM Reporting Lab: [facility] [address] Performing Lab: [facility] [address] [place] [facility] URINALYS IS LEUKOCYTE ESTERASE [PRESENCE] IN URINE BY TEST STRIP 500 10/08 Specimen Type: URINE No comment entered. Ordering Provider: ANKUSH BOWMAN Report Released Date/Time: Sep 24, 2022 01:55 PM Reporting Lab: [facility] [address] Performing Lab: [facility] [address] [place] [facility] ALBUMIN ALBUMIN [MASS/VOLU ME] IN SERUM OR PLASMA 4.2 g/dL 3.5 - 5.2 10/08 Specimen Type: PLASMA No comment entered. Ordering Provider: ANKUSH BOWMAN Report Released Date/Time: Sep 24, 2022 01:55 PM Reporting Lab: [facility] [address] Performing Lab: [facility] [address] [place] [facility] PRE-ALBU MIN PREALBUMIN [MASS/VOLU ME] IN SERUM OR PLASMA 28.4 mg/dL 14.0 - 45.0 10/08 Specimen Type: SERUM No comment entered. Ordering Provider: ANKUSH BOWMAN Report Released Date/Time: Sep 24, 2022 01:55 PM Reporting Lab: [facility] [address] Performing Lab: [facility] [address] [place] [facility] COMPREHE NSIVE METABOLI C PANEL+MG CREATININE [MASS/VOLU ME] IN SERUM OR PLASMA 0.7 mg/dL 0.7 - 1.2 10/08 Specimen Type: PLASMA No comment entered. Ordering Provider: ANKUSH BOWMAN Report Released Date/Time: Sep 24, 2022 01:55 PM Reporting Lab: [facility] [address] Performing Lab: [facility] [address] [place] [facility] COMPREHE NSIVE METABOLI C PANEL+MG UREA NITROGEN [MASS/VOLU ME] IN SERUM OR PLASMA 16 mg/dL 8 - 26 10/08 Specimen Type: PLASMA No comment entered. Ordering Provider: ANKUSH BOWMAN Report Released Date/Time: Sep 24, 2022 01:55 PM Reporting Lab: [facility] [address] Performing Lab: [facility] [address] [place] [facility] COMPREHE NSIVE METABOLI C PANEL+MG GLUCOSE [MASS/VOLU ME] IN SERUM OR PLASMA 94 mg/dL 70 - 100 10/08 Specimen Type: PLASMA No comment entered. Ordering Provider: ANKUSH BOWMAN Report Released Date/Time: Sep 24, 2022 01:55 PM Reporting Lab: [facility] [address] Performing Lab: [facility] [address] [place] [facility] COMPREHE NSIVE METABOLI C PANEL+MG SODIUM [MOLES/VOL UME] IN SERUM OR PLASMA 138 mmol/L 136 - 145 10/08 Specimen Type: PLASMA No comment entered. Ordering Provider: ANKUSH BOWMAN Report Released Date/Time: Sep 24, 2022 01:55 PM Reporting Lab: [facility] [address] Performing Lab: [facility] [address] [place] [facility] COMPREHE NSIVE METABOLI C PANEL+MG POTASSIUM [MOLES/VOL UME] IN SERUM OR PLASMA 3.9 mmol/L 3.5 - 5.1 10/08 Specimen Type: PLASMA No comment entered. Ordering Provider: ANKUSH BOWMAN Report Released Date/Time: Sep 24, 2022 01:55 PM Reporting Lab: [facility] [address] Performing Lab: [facility] [address] [place] [facility] COMPREHE NSIVE METABOLI C PANEL+MG CHLORIDE [MOLES/VOL UME] IN SERUM OR PLASMA 101 mmol/L 98 - 107 10/08 Specimen Type: PLASMA No comment entered. Ordering Provider: ANKUSH BOWMAN Report Released Date/Time: Sep 24, 2022 01:55 PM Reporting Lab: [facility] [address] Performing Lab: [facility] [address] [place] [facility] COMPREHE NSIVE METABOLI C PANEL+MG CARBON DIOXIDE, TOTAL [MOLES/VOL UME] IN SERUM OR PLASMA 28 mmol/L 22 - 29 10/08 Specimen Type: PLASMA No comment entered. Ordering Provider: ANKUSH BOWMAN Report Released Date/Time: Sep 24, 2022 01:55 PM Reporting Lab: [facility] [address] Performing Lab: [facility] [address] [place] [facility] COMPREHE NSIVE METABOLI C PANEL+MG CALCIUM [MASS/VOLU ME] IN SERUM OR PLASMA 9.7 mg/dL 8.4 - 10.2 10/08 Specimen Type: PLASMA No comment entered. Ordering Provider: ANKUSH BOWMAN Report Released Date/Time: Sep 24, 2022 01:55 PM Reporting Lab: [facility] [address] Performing Lab: [facility] [address] [place] [facility] COMPREHE NSIVE METABOLI C PANEL+MG PROTEIN [MASS/VOLU ME] IN SERUM OR PLASMA 7.6 g/dL 6.0 - 8.3 10/08 Specimen Type: PLASMA No comment entered. Ordering Provider: ANKUSH BOWMAN Report Released Date/Time: Sep 24, 2022 01:55 PM Reporting Lab: [facility] [address] Performing Lab: [facility] [address] [place] [facility] COMPREHE NSIVE METABOLI C PANEL+MG ALBUMIN [MASS/VOLU ME] IN SERUM OR PLASMA 4.2 g/dL 3.5 - 5.2 10/08 Specimen Type: PLASMA No comment entered. Ordering Provider: ANKUSH BOWMAN Report Released Date/Time: Sep 24, 2022 01:55 PM Reporting Lab: [facility] [address] Performing Lab: [facility] [address] [place] [facility] COMPREHE NSIVE METABOLI C PANEL+MG BILIRUBIN. TOTAL [MASS/VOLU ME] IN SERUM OR PLASMA 0.6 mg/dL 0.2 - 1.2 10/08 Specimen Type: PLASMA No comment entered. Ordering Provider: ANKUSH BOWMAN Report Released Date/Time: Sep 24, 2022 01:55 PM Reporting Lab: [facility] [address] Performing Lab: [facility] [address] [place] [facility] COMPREHE NSIVE METABOLI C PANEL+MG MAGNESIUM [MASS/VOLU ME] IN SERUM OR PLASMA 2.1 mg/dL 1.6 - 2.6 10/08 Specimen Type: PLASMA No comment entered. Ordering Provider: ANKUSH BOWMAN Report Released Date/Time: Sep 24, 2022 01:55 PM Reporting Lab: [facility] [address] Performing Lab: [facility] [address] [place] [facility] COMPREHE NSIVE METABOLI C PANEL+MG ANION GAP IN SERUM OR PLASMA 9 mmol/L 5 - 15 10/08 Specimen Type: PLASMA No comment entered. Ordering Provider: ANKUSH BOWMAN Report Released Date/Time: Sep 24, 2022 01:55 PM Reporting Lab: [facility] [address] Performing Lab: [facility] [address] [facility] COMPREHE NSIVE METABOLI C PANEL+MG ALKALINE PHOSPHATAS E [ENZYMATIC ACTIVITY/V OLUME] IN SERUM OR PLASMA 96 U/L 40 - 150 10/08 Specimen Type: PLASMA No comment entered. Ordering Provider: ANKUSH BOWMAN Report Released Date/Time: Sep 24, 2022 01:55 PM Reporting Lab: [facility] [address] Performing Lab: [facility] [address] [facility] COMPREHE NSIVE METABOLI C PANEL+MG ALANINE AMINOTRANS FERASE [ENZYMATIC ACTIVITY/V OLUME] IN SERUM OR PLASMA 29 U/L <55 - 55 10/08 Specimen Type: PLASMA No comment entered. Ordering Provider: ANKUSH BOWMAN Report Released Date/Time: Sep 24, 2022 01:55 PM Reporting Lab: [facility] [address] Performing Lab: [facility] [address] [place] [facility] COMPREHE NSIVE METABOLI C PANEL+MG ASPARTATE AMINOTRANS FERASE [ENZYMATIC ACTIVITY/V OLUME] IN SERUM OR PLASMA 22 U/L <34 - 34 10/08 Specimen Type: PLASMA No comment entered. Ordering Provider: ANKUSH BOWMAN Report Released Date/Time: Sep 24, 2022 01:55 PM Reporting Lab: [facility] [address] Performing Lab: [facility] [address] [place] [facility] COMPREHE NSIVE METABOLI C PANEL+MG GLOMERULAR FILTRATION RATE/1.73 SQ M.PREDICTE D [VOLUME RATE/AREA] IN SERUM, PLASMA OR BLOOD BY CREATININE -BASED FORMULA (CKD-EPI) >90 60 10/08 Specimen Type: PLASMA No comment entered. Ordering Provider: ANKUSH BOWMAN Report Released Date/Time: Sep 24, 2022 01:55 PM Reporting Lab: [facility] [address] Performing Lab: [facility] [address] [place] [facility] CBC & DIFF LEUKOCYTES [#/VOLUME] IN BLOOD BY AUTOMATED COUNT 7.32 10*3/uL 4.0 - 11.0 10/08 Specimen Type: BLOOD Comment: Automated Differentia l Performed Ordering Provider: ANKUSH BOWMAN Report Released Date/Time: Sep 24, 2022 01:55 PM Reporting Lab: [facility] [address] Performing Lab: [facility] [address] [place] [facility] CBC & DIFF ERYTHROCYT ES [#/VOLUME] IN BLOOD BY AUTOMATED COUNT 4.80 10*6/uL 4.6 - 6.2 10/08 Specimen Type: BLOOD Comment: Automated Differentia l Performed Ordering Provider: ANKUSH BOWMAN Report Released Date/Time: Sep 24, 2022 01:55 PM Reporting Lab: [facility] [address] Performing Lab: [facility] [address] [place] [facility] CBC & DIFF HEMOGLOBIN [MASS/VOLU ME] IN BLOOD 14.7 g/dL 13.5 - 17.9 10/08 Specimen Type: BLOOD Comment: Automated Differentia l Performed Ordering Provider: ANKUSH BOWMAN Report Released Date/Time: Sep 24, 2022 01:55 PM Reporting Lab: [facility] [address] Performing Lab: [facility] [address] [place] [facility] CBC & DIFF HEMATOCRIT [VOLUME FRACTION] OF BLOOD BY AUTOMATED COUNT 44.2 41 - 54 10/08 Specimen Type: BLOOD Comment: Automated Differentia l Performed Ordering Provider: ANKUSH BOWMAN Report Released Date/Time: Sep 24, 2022 01:55 PM Reporting Lab: [facility] [address] Performing Lab: [facility] [address] [place] [facility] CBC & DIFF MCV [ENTITIC VOLUME] BY AUTOMATED COUNT 92.1 fL 80 - 100 10/08 Specimen Type: BLOOD Comment: Automated Differentia l Performed Ordering Provider: ANKUSH BOWMAN Report Released Date/Time: Sep 24, 2022 01:55 PM Reporting Lab: [facility] [address] Performing Lab: [facility] [address] [place] [facility] CBC & DIFF MCH [ENTITIC MASS] BY AUTOMATED COUNT 30.6 pg 27 - 33 10/08 Specimen Type: BLOOD Comment: Automated Differentia l Performed Ordering Provider: ANKUSH BOWMAN Report Released Date/Time: Sep 24, 2022 01:55 PM Reporting Lab: [facility] [address] Performing Lab: [facility] [address] [place] [facility] CBC & DIFF MCHC [MASS/VOLU ME] BY AUTOMATED COUNT 33.3 g/dL 32.0 - 37.5 10/08 Specimen Type: BLOOD Comment: Automated Differentia l Performed Ordering Provider: ANKUSH BOWMAN Report Released Date/Time: Sep 24, 2022 01:55 PM Reporting Lab: [facility] [address] Performing Lab: [facility] [address] [place] [facility] CBC & DIFF PLATELETS [#/VOLUME] IN BLOOD BY AUTOMATED COUNT 144 10*3/uL 150 - 400 10/08 L Specimen Type: BLOOD Comment: Automated Differentia l Performed Ordering Provider: ANKUSH BOWMAN Report Released Date/Time: Sep 24, 2022 01:55 PM Reporting Lab: [facility] [address] Performing Lab: [facility] [address] [place] [facility] CBC & DIFF PLATELET MEAN VOLUME [ENTITIC VOLUME] IN BLOOD BY AUTOMATED COUNT 10.8 fL 7.4 - 10.4 10/08 H Specimen Type: BLOOD Comment: Automated Differentia l Performed Ordering Provider: ANKUSH BOWMAN Report Released Date/Time: Sep 24, 2022 01:55 PM Reporting Lab: [facility] [address] Performing Lab: [facility] [address] [place] [facility] CBC & DIFF NEUTROPHIL S/100 LEUKOCYTES IN BLOOD BY MANUAL COUNT 55.5 10/08 Specimen Type: BLOOD Comment: Automated Differentia l Performed Ordering Provider: ANKUSH BOWMAN Report Released Date/Time: Sep 24, 2022 01:55 PM Reporting Lab: [facility] [address] Performing Lab: [facility] [address] [place] [facility] CBC & DIFF LYMPHOCYTE S/100 LEUKOCYTES IN BLOOD BY MANUAL COUNT 31.4 10/08 Specimen Type: BLOOD Comment: Automated Differentia l Performed Ordering Provider: ANKUSH BOWMAN Report Released Date/Time: Sep 24, 2022 01:55 PM Reporting Lab: [facility] [address] Performing Lab: [facility] [address] [place] [facility] CBC & DIFF MONOCYTES/ 100 LEUKOCYTES IN BLOOD BY AUTOMATED COUNT 10.2 10/08 Specimen Type: BLOOD Comment: Automated Differentia l Performed Ordering Provider: ANKUSH BOWMAN Report Released Date/Time: Sep 24, 2022 01:55 PM Reporting Lab: [facility] [address] Performing Lab: [facility] [address] [place] [facility] CBC & DIFF EOSINOPHIL S/100 LEUKOCYTES IN BLOOD BY AUTOMATED COUNT 2.2 10/08 Specimen Type: BLOOD Comment: Automated Differentia l Performed Ordering Provider: ANKUSH BOWMAN Report Released Date/Time: Sep 24, 2022 01:55 PM Reporting Lab: [facility] [address] Performing Lab: [facility] [address] [place] [facility] CBC & DIFF BASOPHILS/ 100 LEUKOCYTES IN BLOOD BY MANUAL COUNT 0.4 10/08 Specimen Type: BLOOD Comment: Automated Differentia l Performed Ordering Provider: ANKUSH BOWMAN Report Released Date/Time: Sep 24, 2022 01:55 PM Reporting Lab: [facility] [address] Performing Lab: [facility] [address] [place] [facility] CBC & DIFF ERYTHROCYT E DISTRIBUTI ON WIDTH [RATIO] BY AUTOMATED COUNT 15.9 11.5 - 14.5 10/08 H Specimen Type: BLOOD Comment: Automated Differentia l Performed Ordering Provider: ANKUSH BOWMAN Report Released Date/Time: Sep 24, 2022 01:55 PM Reporting Lab: [facility] [address] Performing Lab: [facility] [address] [place] [facility] CBC & DIFF LYMPHOCYTE S [#/VOLUME] IN BLOOD BY AUTOMATED COUNT 2.30 10*3/uL 1.0 - 4.0 10/08 Specimen Type: BLOOD Comment: Automated Differentia l Performed Ordering Provider: ANKUSH BOWMAN Report Released Date/Time: Sep 24, 2022 01:55 PM Reporting Lab: [facility] [address] Performing Lab: [facility] [address] [place] [facility] CBC & DIFF MONOCYTES [#/VOLUME] IN BLOOD BY AUTOMATED COUNT 0.75 10*3/uL 0.1 - 1.0 10/08 Specimen Type: BLOOD Comment: Automated Differentia l Performed Ordering Provider: ANKUSH BOWMAN Report Released Date/Time: Sep 24, 2022 01:55 PM Reporting Lab: [facility] [address] Performing Lab: [facility] [address] [place] [facility] CBC & DIFF NEUTROPHIL S [#/VOLUME] IN BLOOD BY AUTOMATED COUNT 4.06 10*3/uL 2.0 - 7.7 10/08 Specimen Type: BLOOD Comment: Automated Differentia l Performed Ordering Provider: ANKUSH BOWMAN Report Released Date/Time: Sep 24, 2022 01:55 PM Reporting Lab: [facility] [address] Performing Lab: [facility] [address] [place] [facility] CBC & DIFF EOSINOPHIL S [#/VOLUME] IN BLOOD BY AUTOMATED COUNT 0.16 10*3/uL 0 - 0.5 10/08 Specimen Type: BLOOD Comment: Automated Differentia l Performed Ordering Provider: ANKUSH BOWMAN Report Released Date/Time: Sep 24, 2022 01:55 PM Reporting Lab: [facility] [address] Performing Lab: [facility] [address] [place] [facility] CBC & DIFF BASOPHILS [#/VOLUME] IN BLOOD BY AUTOMATED COUNT 0.03 10*3/uL 0 - 0.2 10/08 Specimen Type: BLOOD Comment: Automated Differentia l Performed Ordering Provider: ANKUSH BOWMAN Report Released Date/Time: Sep 24, 2022 01:55 PM Reporting Lab: [facility] [address] Performing Lab: [facility] [address] [place] [facility] CBC & DIFF IG(META,MY MALACHI,PRO) 0.3 10/08 Specimen Type: BLOOD Comment: Automated Differentia l Performed Ordering Provider: ANKUSH BOWMAN Report Released Date/Time: Sep 24, 2022 01:55 PM Reporting Lab: [facility] [address] Performing Lab: [facility] [address] [place] [facility] CBC & DIFF IMMATURE GRANULOCYT ES [PRESENCE] IN BLOOD BY AUTOMATED COUNT 0.02 10*3/uL 0 - 0.1 10/08 Specimen Type: BLOOD Comment: Automated Differentia l Performed Ordering Provider: ANKUSH BOWMAN Report Released Date/Time: Sep 24, 2022 01:55 PM Reporting Lab: [facility] [address] Performing Lab: [facility] [address] [place] [facility] CYSTATIN C WITH EGFR CYSTATIN C [MASS/VOLU ME] IN SERUM OR PLASMA 1.38 mg/L 0.51 - 1.05 11/28 /2022 H Specimen Type: PLASMA No comment entered. Ordering Provider: ANKUSH BOWMAN Report Released Date/Time: Sep 24, 2022 01:55 PM Reporting Lab: [facility] [address] Performing Lab: [facility] [address] [place] [facility] CYSTATIN C WITH EGFR CYSTATIN C AND GLOMERULAR FILTRATION RATE BY CYSTATIN-B ASED FORMULA PANEL - SERUM OR PLASMA 48 60 10/08 L Specimen Type: PLASMA No comment entered. Ordering Provider: ANKUSH BOWMAN Report Released Date/Time: Sep 24, 2022 01:55 PM Reporting Lab: [facility] [address] Performing Lab: [facility] [address] [place] [facility] VIT D 25-OH,TO ZAMZAM 25-HYDROXY VITAMIN D3 [MASS/VOLU ME] IN SERUM OR PLASMA 54 ng/mL 12 - 50 10/08 H Specimen Type: SERUM No comment entered. Ordering Provider: ANKUSH BOWMAN Report Released Date/Time: Sep 24, 2022 01:55 PM Reporting Lab: [facility] [address] Performing Lab: [facility] [address] [place] [facility] COMPREHE NSIVE METABOLI C PANEL+MG CREATININE [MASS/VOLU ME] IN SERUM OR PLASMA 0.7 mg/dL 0.7 - 1.2 05/28 Specimen Type: PLASMA No comment entered. Ordering Provider: GERMANIA HANSON Report Released Date/Time: May 28, 2022 03:06 PM Reporting Lab: [facility] [address] Performing Lab: [facility] [address] [facility] COMPREHE NSIVE METABOLI C PANEL+MG UREA NITROGEN [MASS/VOLU ME] IN SERUM OR PLASMA 13 mg/dL 8 - 26 05/28 Specimen Type: PLASMA No comment entered. Ordering Provider: GERMANIA HANSON Report Released Date/Time: May 28, 2022 03:06 PM Reporting Lab: [facility] [address] Performing Lab: [facility] [address] [facility] COMPREHE NSIVE METABOLI C PANEL+MG GLUCOSE [MASS/VOLU ME] IN SERUM OR PLASMA 98 mg/dL 74 - 100 05/28 Specimen Type: PLASMA No comment entered. Ordering Provider: GERMANIA HANSON Report Released Date/Time: May 28, 2022 03:06 PM Reporting Lab: [facility] [address] Performing Lab: [facility] [address] [facility] COMPREHE NSIVE METABOLI C PANEL+MG SODIUM [MOLES/VOL UME] IN SERUM OR PLASMA 138 mmol/L 136 - 145 05/28 Specimen Type: PLASMA No comment entered. Ordering Provider: GERMANIA HANSON Report Released Date/Time: May 28, 2022 03:06 PM Reporting Lab: [facility] [address] Performing Lab: [facility] [address] [facility] COMPREHE NSIVE METABOLI C PANEL+MG POTASSIUM [MOLES/VOL UME] IN SERUM OR PLASMA 4.4 mmol/L 3.5 - 5.1 05/28 Specimen Type: PLASMA No comment entered. Ordering Provider: GERMANIA HANSON Report Released Date/Time: May 28, 2022 03:06 PM Reporting Lab: [facility] [address] Performing Lab: [facility] [address] [facility] COMPREHE NSIVE METABOLI C PANEL+MG CHLORIDE [MOLES/VOL UME] IN SERUM OR PLASMA 102 mmol/L 98 - 107 05/28 Specimen Type: PLASMA No comment entered. Ordering Provider: GERMANIA HANSON Report Released Date/Time: May 28, 2022 03:06 PM Reporting Lab: [facility] [address] Performing Lab: [facility] [address] [facility] COMPREHE NSIVE METABOLI C PANEL+MG CARBON DIOXIDE, TOTAL [MOLES/VOL UME] IN SERUM OR PLASMA 28 mmol/L 22 - 29 05/28 Specimen Type: PLASMA No comment entered. Ordering Provider: GERMANIA HANSON Report Released Date/Time: May 28, 2022 03:06 PM Reporting Lab: [facility] [address] Performing Lab: [facility] [address] [facility] COMPREHE NSIVE METABOLI C PANEL+MG CALCIUM [MASS/VOLU ME] IN SERUM OR PLASMA 9.4 mg/dL 8.4 - 10.2 05/28 Specimen Type: PLASMA No comment entered. Ordering Provider: GERMANIA HANSON Report Released Date/Time: May 28, 2022 03:06 PM Reporting Lab: [facility] [phone] Performing Lab: [facility] [phone] [facility] COMPREHE NSIVE METABOLI C PANEL+MG PROTEIN [MASS/VOLU ME] IN SERUM OR PLASMA 7.6 g/dL 6.0 - 8.3 05/28 Specimen Type: PLASMA No comment entered. Ordering Provider: GERMANIA HANSON Report Released Date/Time: May 28, 2022 03:06 PM Reporting Lab: [facility] [phone] Performing Lab: [facility] [phone] [facility] COMPREHE NSIVE METABOLI C PANEL+MG ALBUMIN [MASS/VOLU ME] IN SERUM OR PLASMA 4.0 g/dL 3.5 - 5.2 05/28 Specimen Type: PLASMA No comment entered. Ordering Provider: GERMANIA HANSON Report Released Date/Time: May 28, 2022 03:06 PM Reporting Lab: [facility] [phone] Performing Lab: [facility] [phone] [facility] COMPREHE NSIVE METABOLI C PANEL+MG BILIRUBIN. TOTAL [MASS/VOLU ME] IN SERUM OR PLASMA 0.5 mg/dL 0.2 - 1.2 05/28 Specimen Type: PLASMA No comment entered. Ordering Provider: GERMANIA HANSON Report Released Date/Time: May 28, 2022 03:06 PM Reporting Lab: [facility] [phone] Performing Lab: [facility] [phone] [facility] COMPREHE NSIVE METABOLI C PANEL+MG MAGNESIUM [MASS/VOLU ME] IN SERUM OR PLASMA 2.1 mg/dL 1.6 - 2.6 05/28 Specimen Type: PLASMA No comment entered. Ordering Provider: GERMANIA HANSON Report Released Date/Time: May 28, 2022 03:06 PM Reporting Lab: [facility] [phone] Performing Lab: [facility] [phone] [facility] COMPREHE NSIVE METABOLI C PANEL+MG ANION GAP IN SERUM OR PLASMA 8 mmol/L 5 - 15 05/28 Specimen Type: PLASMA No comment entered. Ordering Provider: GERMANIA HANSON Report Released Date/Time: May 28, 2022 03:06 PM Reporting Lab: [facility] [address] Performing Lab: [facility] [address] [facility] COMPREHE NSIVE METABOLI C PANEL+MG ALKALINE PHOSPHATAS E [ENZYMATIC ACTIVITY/V OLUME] IN SERUM OR PLASMA 108 U/L 40 - 150 05/28 Specimen Type: PLASMA No comment entered. Ordering Provider: GERMANIA HANSON Report Released Date/Time: May 28, 2022 03:06 PM Reporting Lab: [facility] [address] Performing Lab: [facility] [address] [facility] COMPREHE NSIVE METABOLI C PANEL+MG ALANINE AMINOTRANS FERASE [ENZYMATIC ACTIVITY/V OLUME] IN SERUM OR PLASMA 27 U/L <55 - 55 05/28 Specimen Type: PLASMA No comment entered. Ordering Provider: GERMANIA HANSON Report Released Date/Time: May 28, 2022 03:06 PM Reporting Lab: [facility] [address] Performing Lab: [facility] [address] [facility] COMPREHE NSIVE METABOLI C PANEL+MG ASPARTATE AMINOTRANS FERASE [ENZYMATIC ACTIVITY/V OLUME] IN SERUM OR PLASMA 21 U/L <34 - 34 05/28 Specimen Type: PLASMA No comment entered. Ordering Provider: GERMANIA HANSON Report Released Date/Time: May 28, 2022 03:06 PM Reporting Lab: [facility] [address] Performing Lab: [facility] [address] [facility] COMPREHE NSIVE METABOLI C PANEL+MG GLOMERULAR FILTRATION RATE/1.73 SQ M.PREDICTE D [VOLUME RATE/AREA] IN SERUM, PLASMA OR BLOOD BY CREATININE -BASED FORMULA (CKD-EPI) >90 60 05/28 Specimen Type: PLASMA No comment entered. Ordering Provider: GERMANIA HANSON Report Released Date/Time: May 28, 2022 03:06 PM Reporting Lab: [facility] [address] Performing Lab: [facility] [address] [facility] Encounters Combined list of: 1) Encounters from Department of [facility] facilities going back up to thelast 18 months. 2) Encounters from the Department of [facility] facilities going back up to 280 months. Location Location Details Encounter Type Encounter Number Reason For Visit Attending Provider ADM Date DC Date Status Disposition Source [facility] PRO PHONE CALL 5-10 MIN 30116-861 [id number] Diagnos is: ICD-10- CM Z73.6 Limitat ion of activit ies due to disabil ity<br/ > AVE HALEY 12/13 [facility] IS [facility] Outpatient Encounter [id number] 01/08 [facility] IS [facility] PRO PHONE CALL 21-30 MIN [id number] Diagnos is: ICD-10- CM G82.20 Paraple mary kay, unspeci fied
Hever CASTRO 01/08 [facility] IS [facility] Outpatient Encounter [id number] 01/09 [facility] IS [facility] DIABETIC MANAGEMENT PROGRAM, [id number] Diagnos is: ICD-10- CM G82.20 Paraple mary kay, unspeci fied
TIGIST BASSETT A 01/30 [facility] Outpatient Encounter [id number] 02/05 [facility] MTMS BY PHARM ADDL 15 MIN [id number] Diagnos is: ICD-10- CM G82.20 Paraple mary kay, unspeci fied
MANPREET BARRETTEY N 02/05 [facility] OT EVAL LOW COMPLEX 30 MIN [id number] Diagnos is: ICD-10- CM Z73.6 Limitat ion of activit ies due to disabil ity<br/ > Bryn PARDO 02/05 [facility] IS [facility] OFF/OP EST MAY X REQ PHY/QHP [phone] Diagnos is: ICD-10- CM G82.20 Paraple mary kay, unspeci fied
ROSARIAJOSUÉ J 02/05 [facility] IS [facility] PSYCH DIAGNOSTIC EVALUATION [id number] Diagnos is: ICD-10- CM F32.A Depress ion, unspeci fied
BINU GAMEZ 02/05 [facility] IS [facility] OFFICE O/P EST MOD 30-39 MIN [phone] Diagnos is: ICD-10- CM G82.20 Paraple mary kay, unspeci fied
ME LOGAN BOWMAN K 02/05 [facility] IS [facility] PSYCH DIAGNOSTIC EVALUATION [id number] Diagnos is: ICD-10- CM G82.20 Paraple mary kay, unspeci fied
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
VIOLA YOON 02/08 [facility] IS [facility] OFFICE O/P EST HI 40-54 MIN [id number] Diagnos is: ICD-10- CM G82.20 Paraple mary kay, unspeci fied
ME LOGAN BOWMAN 02/13 [facility] IS [facility] WHEELCHAIR MNGMENT TRAINING [id number] Diagnos is: ICD-10- CM Z73.6 Limitat ion of activit ies due to disabil ity<br/ > BOUSLOG,RY AN P 02/13 [facility] IS [facility] Outpatient Encounter [id number] 02/19 [facility] IS [facility] HC PRO PHONE CALL 11-20 MIN [id number] Diagnos is: ICD-10- CM Z73.6 Limitat ion of activit ies due to disabil ity<br/ > BOUSLOG,RY AN P 04/23 [facility] IS [facility] Outpatient Encounter [id number] 04/24 [facility] IS [facility] Outpatient Encounter [id number] 05/24 [facility] IS [facility] OFF/OP EST MARCH X REQ PHY/QHP [id number] Diagnos is: ICD-10- CM G82.20 Paraple mary kay, unspeci fied
VIOLA YOON NDJagdish 05/28 [facility] [place] [facility] WHEELCHAIR MNGMENT TRAINING [id number] Diagnos is: ICD-10- CM Z73.6 Limitat ion of activit ies due to disabil ity<br/ > BOUSLOG,RY AN P 06/10 [facility] [place] [facility] Outpatient Encounter [id number] 10/28 [facility] [place] [facility] Outpatient Encounter [id number] 11/20 [facility] [place] [facility] Outpatient Encounter [id number] 05/12 [facility] Social History Combined list of available [...] List of future care activities from Department [facility] facilities. Additional future care activities may be listed in the Assessment and Plan section. Date/Time Care Activity Care Activity Detail Facili ty 06/24/2024 AMBULATORY - REHAB MEDICINE AMBULATORY - REHAB MEDICINE [facility] 05/12/2024 Consult Order SCI/D WHEELCHAIR SEATING/POSITIONING OUTPT Cons Manufacturing Project Engineer's Choice [facility] Advance Directives List of completed, amended, or rescinded Advance Directives on record at Department [facility] Affairs facilities. An actual copy of the Directive is not included. Date Advance Directive Provider Source 02/05/2023 ADVANCE DIRECTIVE DISCUSSION GUSTAVO ABAD [facility]
--- OUTSIDE RECORDS SUMMARY | 2024-06-01 12:43 | XMS_ITS | Clinical Summary ---
Author Organization [facility] Address [place], [place] [address] Care Team Providers Care Senior Civil Engineer Name Role Phone Zelalem Cohen MD Unavailable [phone] May Randle) Unavailable Franklin Squires MD Primary Care Provider Fred Craft Unavailable [phone] Diane Charles MD Unavailable [phone] Julia Ware RN Unavailable Allergies Active [...] bedIndications:Non-heal ing surgical wound, subsequent encounter Drive [employer] Search 8 inch low loss mattress and 1/2 rails. Semi-electric bed. Length of need 6 weeks. Bed behavioral health aide:no 1 unit 018 Active acetaminophen (TYLENOL EXTRA [...] 60mm, Cut-to-Fit 01/16 - 2 11/18. Item #[id number]. 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) TAKE 2 TABLETS THREE TIMES A DAY 540 Tablet 3 023 2023 Discontinued oxyCODONE 10 mg tabletIndications:Chron [...] Date Resolved Date Soft tissue infection 10/22/20232023 nursing home current use of anticoagulant 06/20/2023 01/08/2024 [...] delivery 04/16/2007 10/01/2007 Overview: S/P IVC Filter nursing home (current) use of anticoagulants 02/19/2007 09/27/2008 Depressive disorder, not elsewhere classified 02/14/20 07 01/15/2018 Abnormality of gait 12/24/2006 09/27/20 08 Urinary tract infection, site not specified 12/24/2006 01/15/2018 BENIGN ESSENTIAL HYPERTENSION 12/24/2006 04/17/2016 Overview: borderline Necrotizing fasciitis 2018 Type 2 diabetes mellitus Encounters Date Type Department Care Team Description 05/20/2024 Anticoagulation (warfarin) [address] [place] [id number] 1, [facility] Anticoagulation (Acelis) 05/14/[address] [place] [address] Franklin Squires MD Refill Request (Baclofen) 05/14/[address] [place] [address] Franklin Squires MD Refill Request (Warfarin) 05/13/2024 Anticoagulation (warfarin) [address] [place] [address] 1, [facility] Anticoagulation (Acelis) 05/11/[address] [place] [address] Franklin Squires MD Form (Physician Orders and Home Health Certification and Plan of Care.) 05/06/2024 Anticoagulation (warfarin) [address] [place] [address] 1, [facility] Anticoagulation (Acelis) 05/05/[address] [address] Franklin Squires MD Form (60 Day Summary Report) 05/05/[address] [place] [address] Franklin Squires MD Refill Request (Warfarin) 05/04/[address] [place] [address] Franklin Squires MD Form 05/04/[address] [place] [address] Franklin Squires MD Refill Request (Oxycodone) 05/01/2024 Anticoagulation (warfarin) [address] [address] , [facility] Anticoagulation (Acelis) 04/29/2024 Refill [facility] [address] [place] [address] Franklin Squires MD Refill Request (Duloxetine, Donepezil) 04/24/2024 2:49 PM CDT - 04/24/2024 2:50 PM CDT Emergency [facility] [address] [place] [address] Discharge Disposition: Against Medical Advice or Discontinued Care 04/24/2024 Travel 04/24/2024 Anticoagulation (warfarin) [address] [address] 1, [facility] Anticoagulation (Acelis) 04/21/[address] [address] Franklin Squires MD Refill Request (Gabapentin) 04/20/[address] [address] Franklin Squires MD Form (Physician Orders. Urinary Catheter - Suprapubic. ) 04/20/[address] [address] Franklin Squires MD Refill Request (Gabapentin 400 mg) 04/13/[address] [address] Franklin Squires MD Form (Standard Written Order: Rehab Accessories. Cushion, Quadtro Select HI PRO 20x20 or 11x11 CELL) 04/07/2024 Anticoagulation (warfarin) [facility] [address] [place] [address] 1, [facility] Anticoagulation (acelis) 04/07/2024 Telephone [facility] [address] [place] [address] Franklin Squires MD Form (Physician Orders) 04/03/2024 2:30 PM CDT Office Visit [facility] [address] [place] [address] Franklin Squirse MD Follow Up (6 week follow up) 04/03/2024 Travel 04/02/[address] [place] [address] Franklin Squires MD Refill Request (Oxycodone) 03/28/2024 Refill [facility] [address] [place] [address] Franklin Squires MD Refill Request (Furosemide) 03/20/2024 4:32 PM CDT - 03/20/2024 8:34 PM CDT Emergency [facility] [address] [place] [address] Quan Corbett PA Suprapubic catheter dysfunction, initial encounter (HC) (Primary Dx) Discharge Disposition: Home Self Care 03/20/2024 Travel 03/20/2024 Telephone [facility] [address] [place] [address] Franklin Squires MD other (FYI / UPDATE ) 03/19/2024 Anticoagulation (warfarin) [address] [address] 1, [facility] Anticoagulation (acelis) 03/13/2024 2:10 PM CDT Orders Only [facility] [address] [place] [address] Lab, [facility] Lab 03/13/2024 Travel 03/10/[address] [place] [address] Franklin Squires MD Form (Home Health Certification and Plan of Care. ) 03/10/[address] [place] [address] Franklin Squires MD Form (60 day summary report. SNV 2x/wk for wound care.) 03/05/2024 Anticoagulation (warfarin) [address] [place] [address] [place] [address] [facility] Anticoagulation (Acelis) 03/02/[address] [place] [address] Gabrielle Prado PA Refill Request (Oxycodone) 03/02/[address] [place] [address] Franklin Squires MD Refill Request (Lorazepam) from Last 3 Months Immunizations Name Administration Dates Next Due COVID-19 vaccine (Invivodata-Bio NTech 30mcg/0.3mL) 12YO+ BIVALENT PF, MDV 10/22/2022 [...] Description 07/02/2024 1:30 PM CDT Office Visit [facility] [address] [place] [address] Franklin Squires MD [address] [place], [place] [id number] Health Maintenance Due Date Last Done Comments [...] Squires MD OTHER [facility]IT[facility] [address] [place] [address] * BLADDER CATHETERIZATION (03/20/2024 7:52 PM [...] ?Risks discussed: ??Pain, incomplete procedure and infection [facility] protocol: ??Procedure explained and questions answered to [...] CDT) CULTURE RESULT(A) 03/28/2024 11:28 AM CDT [facility] CULTURE 2+ Klebsiella pneumoniae 03/28/2024 11:28 AM CDT [facility] CULTURE 2+ Pseudomonas aeruginosa 03/28/2024 11:28 AM CDT [facility] CULTURE 2+ Staphylococcus aureus 03/28/2024 11:28 AM CDT [facility] Comment:Isolate is MRSA (Met hicillin-resistant Staph aureus). CULTURE 2+ Mixed brigette present 03/28/2024 11:28 AM CDT [facility] GRAM STAIN No PMNs 03/28/2024 11:28 AM CDT [facility] GRAM STAIN No Epithelial cells 03/28/2024 11:28 AM CDT [facility] GRAM STAIN No RBCs 03/28/2024 11:28 AM CDT [facility] GRAM STAIN 4+ Gram Negative Bacilli 03/28/2024 11:28 AM CDT [facility] GRAM STAIN 2+ Gram Positive Cocci 03/28/2024 11:28 AM CDT [facility] Other SPECIMEN FROM [facility] / Unknown Non-Blood / Unknown 03/20/2024 5:01 PM CDT 03/20/2024 5:[address] [facility] - 03/28/2024 11:28 AM CDT Mixed [...] S Quan RAMSEY MICROBIOLOG Y [facility] [address] [place] [address], * (ABNORMAL) CBC WITH AUTO DIFFERENTIAL (03/20/2024 4:58 PM CDT) WHITE BLOOD COUNT 10.9 4.5 - 11.0 thou/cu mm 03/20/2024 5:06 PM [facility] RED BLOOD COUNT 4.92 4.30 - 5.90 mil/cu mm 03/20/2024 5:06 PM [facility] HEMOGLOBIN 12.7(L) 13.5 - 17.5 g/dL 03/20/2024 5:06 PM [facility] HEMATOCRIT 40.0 37.0 - 53.0 % 03/20/2024 5:06 PM [facility] MCV 81 80 - 100 fL 03/20/2024 5:06 PM [facility] MCH 25.8(L) 26.0 - 34.0 pg 03/20/2024 5:06 PM [facility] MCHC 31.8(L) 32.0 - 36.0 g/dL 03/20/2024 5:06 PM [facility] RDW 18.1(H) 11.5 - 15.5 % 03/20/2024 5:06 PM [facility] PLATELET COUNT 263 140 - 440 thou/cu mm 03/20/2024 5:06 PM [facility] MPV 9.4 6.5 - 11.0 fL 03/20/2024 5:06 PM [facility] % NEUT 68.4 % 03/20/2024 5:06 PM [facility] % LYMPH 20.1 % 03/20/2024 5:06 PM [facility] % MONO 8.4 % 03/20/2024 5:06 PM [facility] % EOS 2.8 % 03/20/2024 5:06 PM [facility] % BASO 0.3 % 03/20/2024 5:06 PM [facility] ABSOLUTE NEUTROPHILS 7.4(H) 1.7 - 7.0 thou/cu mm 03/20/2024 5:06 PM [facility] ABSOLUTE LYMPHOCYTES 2.2 0.9 - 2.9 thou/cu mm 03/20/2024 5:06 PM [facility] ABSOLUTE MONOCYTES 0.9(H) <0.9 thou/cu mm 03/20/2024 5:06 PM [facility] ABSOLUTE EOSINOPHILS 0.3 <0.5 thou/cu mm 03/20/2024 5:06 PM [facility] ABSOLUTE BASOPHILS 0.0 <0.3 thou/cu mm 03/20/2024 5:06 PM [facility] Blood BLOOD SPECIMEN / Unknown Butterfly / Unknown 03/20/2024 4:58 PM CDT 03/20/2024 5:02 PM CDT Quan RAMSEY HEMATOLOGY [facility] [address] [place] [address] * LACTATE VENOUS (03/20/2024 4:58 PM CDT) [facility] Signature LACTATE,VENOUS 1.3 0.5 - 2.0 mmol/L 03/20/2024 5:21 PM T [facility] Blood BLOOD SPECIMEN / Unknown Butterfly / Unknown 03/20/2024 4:58 PM CDT 03/20/2024 5:02 PM CDT Quan RAMSEY CHEMISTRY [facility] [address] [place] [address] * (ABNORMAL) BASIC METABOLIC PANEL (03/20/2024 4:58 PM CDT) SODIUM 139 136 - 145 mmol/L 03/20/2024 5:22 PM [facility] POTASSIUM 4.5 3.5 - 5.1 mmol/L 03/20/2024 5:22 PM [facility] CHLORIDE 100 98 - 107 mmol/L 03/20/2024 5:22 PM [facility] CO2,TOTAL 29 22 - 29 mmol/L 03/20/2024 5:22 PM [facility] ANION GAP 10 5 - 18 03/20/2024 5:22 PM [facility] GLUCOSE 115(H) 70 - 99 mg/dL 03/20/2024 5:22 PM [facility] CALCIUM 9.4 8.8 - 10.2 mg/dL 03/20/2024 5:22 PM [facility] BUN 21 8 - 23 mg/dL 03/20/2024 5:22 PM [facility] CREATININE 0.63(L) 0.70 - 1.20 mg/dL 03/20/2024 5:22 PM [facility] BUN/CREAT RATIO 33(H) 10 - 20 5:22 PM [facility] eGFR >90 >90 mL/min/1.7 3m2 03/20/2024 5:22 PM [facility] Comment:As of 2022, [...] CDT Quan RAMSEY CHEMISTRY Performing Organization Address [facility]/ZIP Co de Phone Number [facility] [address] [place] [address] * (ABNORMAL) URINALYSIS MICROSCOPIC (03/13/2024 11:04 AM CDT) RBC 0-2 0-2, None Seen /HPF 03/13/2024 2:26 PM CDT [facility] WBC 6-10(A) 0-2, 3-5, None Seen /HPF 03/13/2024 2:26 PM CDT [facility] BACTERIA Few None Seen, Rare, Few Bacteria/ HPF 03/13/2024 2:26 PM CDT [facility] EPITHELIAL CELLS Few None Seen, Few Epi/HPF 03/13/2024 2:26 PM CDT [facility] WHITE CELL CLUMPS Present(A) (none) 03/13/2024 2:26 PM CDT [facility] Urine URINE SPECIMEN / Unknown Non-Blood / Unknown 03/13/2024 11:04 AM CDT 03/13/2024 1:37 PM CDT Franklin Squires MD URINE Performing Organization Address [facility]/ZIP Co de Phone Number [facility] [address] [place] [address] * (ABNORMAL) URINE CULTURE (03/13/2024 11:04 AM CDT) CULTURE RESULT(A) 03/16/2024 9:13 AM CDT [facility]-C ENTRAL LABORATORY CULTURE >100,000 CFU/mL Pseudomonas aeruginosa 03/16/2024 9:13 AM CDT [facility]AL LAB[facility] CULTURE 50,000-100,000 CFU/mL Staphylococcus aureus 03/16/2024 9:13 AM CDT [facility] CULTURE 10,000-50,000 CFU/mL Enterobacter cloacae complex 03/16/2024 9:13 AM CDT [facility] Comment: May develop resistance during prolonged [...] MICROBIOLOGY [facility] [address] [place] [address], * (ABNORMAL) UA W/ SEDIMENT EXAM REFLEXED PER CRITERIA (03/13/2024 11:04 AM CDT) COLOR Yellow Yellow Color 03/13/2024 2:24 PM [facility] CLARITY Clear Clear Clarity 03/13/2024 2:24 PM [facility] SPECIFIC GRAVITY,URINE <=1.005(A) 1.010, 1.015, 1.020, 1.025 03/13/2024 2:24 PM [facility] PH,URINE 6.5 6.0, 7.0, 8.0, 5.5, 6.5, 7.5, 8.5 03/13/2024 2:24 PM [facility] UROBILINOGEN, QUALITATIVE Normal Normal EU/dl 03/13/2024 2:24 PM [facility] PROTEIN, URINE Negative Negative mg/dL 03/13/2024 2:24 PM [facility] GLUCOSE, URINE Negative Negative mg/dL 03/13/2024 2:24 PM CDT [facility] KETONES,URINE Negative Negative mg/dL 03/13/2024 2:24 PM CDT [facility] BILIRUBIN,URI NE Negative Negative 03/13/2024 2:24 PM CDT [facility] OCCULT BLOOD,URINE Moderate(A) Negative 03/13/2024 2:24 PM CDT [facility] NITRITE Negative Negative 03/13/2024 2:24 PM CDT [facility] LEUKOCYTE ESTERASE Moderate(A) Negative 03/13/2024 2:24 PM CDT [facility] Urine URINE SPECIMEN / Unknown Non-Blood / Unknown 03/13/2024 11:04 AM CDT 03/13/2024 1:37 PM CDT Franklin Squires MD URINE Performing Organization Address City/State/[facility] Co de Phone Number [facility] [address] [place] [address] from Last 3 Months Additional Health Concerns [...] USE ONLY MEDICARE PART A HB ONLY [id number] 2002-Prese nt ATTN: CLAIMS [address] [place] [address] MEDICARE - PB USE ONLY MEDICARE PB ONLY [id number] 2004-Presen t ATTN: CLAIMS [address] [facility] [place] [address] FOR LIFE [id number] 2020-Presen t [address] [place] [address] MEDICARE PPS HC MEDICARE PPS [id number] 2002-Prese nt [address] [place] [address] MEDICARE PART B - HB USE ONLY MEDICARE PART B HB ONLY [id number] 2004-Presen t ATTN: CLAIMS [address] [facility] [place] [address] MEDICARE PART B - HB USE ONLY MEDICARE PART B HB ONLY [id number] 2004-Presen t ATTN: CLAIMS [address] [facility] [place] [address] FOR LIFE [id number] 2013-Presen t [address] [place] [address] Advance Directives Documents on File Type Date Recorded Patient Burn Nurse Expl anation Healthcare Directive 05/09/2023 023 Healthcare [...] Code Status Discussion: Reviewed Preferences Care Teams Senior Civil Engineer Relationship Specialty Start Date End Date Franklin Squires MD [address] [place] [address] PCP - General Family Practice 10/18/15 Zelalem Cohen MD Physical Therapist 03/13/12 May Randle Md, MD Physical Medicine and Rehabilitation 03/13/12 Fred Craft LSW [address] [place] [address] Weblogic Developer 05/03/17 Diane Charles MD [address] [place] [address] Surgery - Urology 01/17/23 Julia Ware, RN [address] [place] [address] Registered Nurse 07/17/23
--- OUTSIDE RECORDS SUMMARY | 2024-06-01 12:43 | XMS_ITS | Encounter Summary ---
Author Organization [facility] Address [address], [place] [address] Care Team Providers Care Ripsaw Matcher Name Role Phone Franklin Squires MD Primary Care Provider Encounter Details Date Type Department Care Team (Late st Contact Info) Description 06/11/2014 [facility] 401 Physical Medicine 401 [facility] [place] [address] May Randle MD [address] [place] [address] [facility] Social History [...] on filedocumented in this encounter Care Teams Ripsaw Matcher Relationship Specialty Start Date End Date Franklin Squires MD 100 [facility] [place] [address] PCP - General Family Practice 03/08/16 documented as of this encounter
--- OUTSIDE RECORDS SUMMARY | 2024-06-01 12:43 | XMS_ITS ---
Author Organization [employer] Address [address] [address] Care Team Providers Care Geological Specialist Name Role Phone Franklin Squires MD [...] treatments are documented for this patient in [facility]. Treatments may have been administered in another system. Resolved Problems Problem Noted Date Diagnosed Date Resolved Date Gait abnormality 01/17/2012 02/09/2015 Back pain 01/17/2012 02/09/2015 Paraplegia 04/04/2011 02/09/2015 Osteoporosis 03/06/2011 02/09/2015 Urinary tract infection 12/24/200603/11
--- OUTSIDE RECORDS SUMMARY | 2024-06-01 12:43 | XMS_ITS | Encounter Summary ---
Author Organization [facility] Address [address] [address] Care Team Providers Care Solar Sales Energy Advisor Name Role Phone Franklin Squires MD Primary Care Provider [phone] Encounter Details Date Type Department Care Team (Late st Contact Info) Description 02/09/2016 [facility] 401 NeuroSurgery 401 [facility] [place], [place] [id number] Jodi Aguila PA-C [address] [place] [address] PATIENT LIFT PRESCRIPTION Social History Tobacco Use [...] filedocumented in this encounter Care Teams Solar Sales Energy Advisor Relationship Specialty Start Date End Date Franklin Squires MD 100 [facility] [place] [id number] PCP - General Family Practice 03/08/16 documented as of this encounter
--- OUTSIDE RECORDS SUMMARY | 2024-06-01 12:43 | XMS_ITS | Encounter Summary ---
Author Organization [facility] Address [address] [address] Care Team Providers Care Heel Attacher Name Role Phone Franklin Squires MD Primary Care Provider Encounter Details Date Type Department Care Team (Late st Contact Info) Description 12/14/2014 [facility] 401 Physical Medicine 401 [facility] [address] May Randle MD [address] [place] [address] DETAILED PRODUCT DESCRIPTION Social History Tobacco Use [...] on filedocumented in this encounter Care Teams Heel Attacher Relationship Specialty Start Date End Date Franklin Squires MD 100 [facility] [place] [address] PCP - General Family Practice 03/08/16 documented as of this encounter
--- OUTSIDE RECORDS SUMMARY | 2024-06-01 12:43 | XMS_ITS | Encounter Summary ---
Author Organization [facility] Address [address], [place] [address] Care Team Providers Care Career Services Director Name Role Phone Franklin Squires MD Primary Care Provider [phone] Encounter Details Date Type Department Care Team (Late st Contact Info) Description 07/28/2014 Outside Hospital External to External, Provider No address [address] ER VISIT/TRANSFER Social History Tobacco Use [...] filedocumented in this encounter Care Teams Career Services Director Relationship Specialty Start Date End Date Franklin Squires MD 100 [facility] [place] [address] PCP - General Family Practice 03/08/16 documented as of this encounter
--- OUTSIDE RECORDS SUMMARY | 2024-06-01 12:43 | XMS_ITS | Encounter Summary ---
Author Organization [facility] Address [address] [address] Care Team Providers Care Major Assembly Inspector Name Role Phone Franklin Squires MD [...] on filedocumented in this encounter Care Teams Major Assembly Inspector Relationship Specialty Start Date End Date Franklin Squires MD 100 [facility] [place] [address] PCP - General Family Practice 03/08/16 documented as of this encounter
--- OUTSIDE RECORDS SUMMARY | 2024-06-01 12:43 | XMS_ITS | Encounter Summary ---
Author Organization [facility] Address [address] [address] Care Team Providers Care Blanchard Grinder Operator Name Role Phone Franklin Squires MD Primary Care Provider Encounter Details Date Type Department Care Team (Late st Contact Info) Description 08/20/2014 Outside Hospital External to [facility] HOSP-ADMIT H/P Social History Tobacco Use [...] on filedocumented in this encounter Care Teams Blanchard Grinder Operator Relationship Specialty Start Date End Date Franklin Squires MD 100 [facility] [place] [address] PCP - General Family Practice 03/08/16 documented as of this encounter
--- OUTSIDE RECORDS SUMMARY | 2024-06-01 12:43 | XMS_ITS | Encounter Summary ---
Author Organization [facility] Address [address] [address] Care Team Providers Care Mortuary Beautician Name Role Phone Franklin Squires MD Primary [...] on filedocumented in this encounter Care Teams Mortuary Beautician Relationship Specialty Start Date End Date Franklin Squires MD 100 [facility] [place] [address] PCP - General Family Practice 03/08/16 documented as of this encounter
--- OUTSIDE RECORDS SUMMARY | 2024-06-01 12:43 | XMS_ITS | Encounter Summary ---
Author Organization [facility] Address [address] [address] Care Team Providers Care Computer Graphics Illustrator Name Role Phone Franklin Squires MD Primary Care Provider [phone] Encounter Details Date Type Department Care Team (Latest Contact Info) Description 12/11/2017 Correspondence Physiatry/Physical Medicine at [facility] 295 [place] [address] May Randle MD [address] [place] [address] [employer] Social History Tobacco Use [...] filedocumented in this encounter Care Teams Computer Graphics Illustrator Relationship Specialty Start Date End Date Franklin Squires MD [address] [place] [address] [place] [address] PCP - General Family Practice 03/08/16 documented as of this encounter
--- OUTSIDE RECORDS SUMMARY | 2024-06-01 12:43 | XMS_ITS | Encounter Summary ---
Author Organization [facility] Address [address] [address] Care Team Providers Care Drill Grinder Name Role Phone Franklin Squires MD Primary Care Provider [phone] Encounter Details Date Type Department Care Team (Late st Contact Info) Description 11/23/2015 Correspondence External to External, [place] [address] LETTER [facility] Social History Tobacco Use Types Packs/Day [...] filedocumented in this encounter Care Teams Drill Grinder Relationship Specialty Start Date End Date Franklin Squires MD [address] [place] [address] [place] [address] PCP - General Family Practice 03/08/16 documented as of this encounter
--- OUTSIDE RECORDS SUMMARY | 2024-06-01 12:43 | XMS_ITS | Encounter Summary ---
Author Organization [facility] Address [address], [place] [address] Care Team Providers Care Manager Administration Name Role Phone Franklin Squires MD Primary Care Provider [phone] Encounter Details Date Type Department Care Team (Late st Contact Info) Description 12/16/2014 Correspondence External to External, [place] [address] MEDICARE PLAN OF CARE RECERT Social History [...] filedocumented in this encounter Care Teams Manager Administration Relationship Specialty Start Date End Date Franklin Squires MD [address] [place] [address] [facility] [place] [address] PCP - General Family Practice 03/08/16 documented as of this encounter
--- OUTSIDE RECORDS SUMMARY | 2024-06-01 12:43 | XMS_ITS | Encounter Summary ---
Author Organization [facility] [address] [address] Care Team Providers Care Human Resources Project Coordinator Name Role Phone Franklin Squires MD Primary Care Provider [phone] Encounter Details Date Type Department Care Team (Late st Contact Info) Description 07/08/2015 Correspondence [facility] Physical Therapy [address] [place] [address] Trudi Raymundo, PT [address] [place] [address] ADDENDUM FOR LETTER OF MEDICAL NECESSITY Social [...] in this encounter Care Teams Human Resources Project Coordinator Relationship Specialty Start Date End Date Franklin Squires MD 100 [facility] [place] [address] PCP - General Family Practice 03/08/16 documented as of this encounter
--- OUTSIDE RECORDS SUMMARY | 2024-06-01 12:43 | XMS_ITS | Encounter Summary ---
Author Organization [facility] Address [address], [place] [address] Care Team Providers Care Satellite Dish Repairer Name Role Phone Franklin Squires MD Primary Care Provider [phone] Encounter Details Date Type Department Care Team (Late st Contact Info) Description 06/07/2015 Correspondence [facility] Radiology [address] [place] [address] Radiology, Provider MRI SAFETY SHEET AND COMPATIBILITY [...] on filedocumented in this encounter Care Teams Satellite Dish Repairer Relationship Specialty Start Date End Date Franklin Squires MD [address] [place], [place] [address] [address] PCP - General Family Practice 03/08/16 documented as of this encounter
--- OUTSIDE RECORDS SUMMARY | 2024-06-01 12:43 | XMS_ITS | Encounter Summary ---
Author Organization [facility] Address [address] [address] Care Team Providers Care Gravel Screener Name Role Phone Franklin Squires MD Primary Care Provider Encounter Details Date Type Department Care Team (Late st Contact Info) Description 01/06/2016 Correspondence [facility] Radiology [address] [place] [address] Radiology, Provider MRI SAFETY SHEET AND COMPATIBILITY [...] on filedocumented in this encounter Care Teams Gravel Screener Relationship Specialty Start Date End Date Franklin Squires MD [address] [place], [place] [address] [address] PCP - General Family Practice 03/08/16 documented as of this encounter
--- OUTSIDE RECORDS SUMMARY | 2024-06-01 12:43 | XMS_ITS | Encounter Summary ---
Author Organization [facility] Address [address], [place] [address] Care Team Providers Care Blood Bank Manager Name Role Phone Franklin Squires MD Primary Care Provider [phone] Encounter Details Date Type Department Care Team (Latest Contact Info) Description 06/04/2014 [facility] 401 Interventional Pain Management 401 [facility] [address] Zelalem Cohen, DO [address] [place] [address] MEDICAID PT INFORMATION EMPI RECOVERY Social History [...] in this encounter Care Teams Blood Bank Manager Relationship Specialty Start Date End Date Franklin Squires MD 100 [facility] [place] [address] PCP - General Family Practice 03/08/16 documented as of this encounter
--- OUTSIDE RECORDS SUMMARY | 2024-06-01 12:43 | XMS_ITS | Encounter Summary ---
Author Organization [facility] Address [address], [place] [address] Care Team Providers Care Materials Management Supervisor Name Role Phone Franklin Squires MD Primary Care Provider [phone] Encounter Details Date Type Department Care Team [...] on filedocumented in this encounter Care Teams Materials Management Supervisor Relationship Specialty Start Date End Date Franklin Squires MD 100 [facility] [place] [address] PCP - General Family Practice 03/08/16 documented as of this encounter
--- OUTSIDE RECORDS SUMMARY | 2024-06-01 12:43 | XMS_ITS | Encounter Summary ---
Author Organization [facility] Address [address], [place] [address] Care Team Providers Care Quality Assurance Consultant Name Role Phone Franklin Squires MD Primary Care Provider [phone] Encounter Details Date Type Department Care Team (Late st Contact Info) Description 09/07/[address] [facility] Radiology [address] [place] [address] Radiology, Provider MRI SAFETY SHEET AND COMPATIBILITY [...] filedocumented in this encounter Care Teams Quality Assurance Consultant Relationship Specialty Start Date End Date Franklin Squires MD [address] [place], [place] [address] [address] PCP - General Family Practice 03/08/16 documented as of this encounter
--- OUTSIDE RECORDS SUMMARY | 2024-06-01 12:43 | XMS_ITS | Encounter Summary ---
Author Organization [facility] [address], [place] [address] Care Team Providers Care Tire Builder Operator Name Role Phone Franklin Squires MD Primary Care Provider [phone] Encounter Details Date Type Department Care Team (Late st Contact Info) Description 11/10/2014 Correspondence [facility] Physical Therapy [address] [place] [address] Trudi Raymundo, PT [address] [place] [address] LETTER OF MEDICAL NECESSITY Social History Tobacco [...] on filedocumented in this encounter Care Teams Tire Builder Operator Relationship Specialty Start Date End Date Franklin Squires MD 100 [facility] [place] [address] PCP - General Family Practice 03/08/16 documented as of this encounter
--- OUTSIDE RECORDS SUMMARY | 2024-06-01 12:43 | XMS_ITS | Clinical Summary ---
Author Organization [facility] Address [address] [place] [address] Care Team Providers Care Fx Artist Name Role Phone Franklin Squires MD Primary Care Provider [phone] Source Comments You are receiving this document [...] for each transition of care or referral. [facility] Allergies Active Allergy Reactions Criticality Noted Date [...] History of anticoagulant therapy 02/17/2014 long term current use of anticoagulant therapy 0 02/17/2014 [...] Comments Blood Pressure 120/63 01/18/2022 12:59 PM MILLER WOOD FLOUR Pulse 87 01/18/2022 12:59 PM M[facility]ER WO[employer]OUR Temperature 36.3 ??C (97.4 ??F) 01/18/2022 12:59 [...] this topic Medical Devices Implanted Type Area Linux Programmer Device Identifier Shelf Expiration Date Model / Serial / Lot [id number] 4ml Tisseel Explanted:(Roosevelt ntity not on file) BIOLOGIC N/A: NECK Lynne Fenwall 09/10/2011 [id number] / [id number] / [id number] Description:posterior Cath Intrathecal Indura - [id number] Implanted:Qty: 1 on 05/09/2010 at [facility] DEVICE Right: LUMBAR SPINE [employer] 01/18/2012 8709 / N/A / [id number] Cath Intrathecal Indura - [id number] Implanted:Qty: 1 on 05/29/2010 at [facility] DEVICE [employer] 8709 / / Scr Indira Conic 7.3x80 - [id number] Implanted:Qty: 1 on 03/13/2011 at [facility] DEVICE Right: FEMUR DISTAL [employer] 02.207.28 0 / NONE / NONE Plt Lcp Cndl Rt 4.5x170 6h - [id number] Implanted:Qty: 1 on 03/13/2011 at [facility] DEVICE Right: FEMUR DISTAL [employer] 222.656 / NONE / NONE Description:6 hole 170mm rig ht 4.5mm lcp condylar plate Scr Didier Ss Sftp 4.5x40 - [id number] Implanted:Qty: 1 on 03/13/2011 at [facility] DEVICE Left: FEMUR DISTAL [employer] 214.840 / NONE / NONE Scr Didier Ss Sftp 4.5x50 - [id number] Implanted:Qty: 1 on 03/13/2011 at [facility] DEVICE Left: FEMUR DISTAL [employer] 214.850 / NONE / NONE Scr Indira Lk 5.0x80 - [id number] Implanted:Qty: 2 on 03/13/2011 at [facility] DEVICE Left: FEMUR DISTAL [employer] 02.205.08 0 / NONE / NONE Scr Indira Lk 5.0x85 - [id number] Implanted:Qty: 2 on 03/13/2011 at [facility] DEVICE Left: FEMUR DISTAL [employer] 02.205.08 5 / NONE / NONE Scr Lk Sftp T25 5.0x50 - [id number] Implanted:Qty: 1 on 03/13/2011 at [facility] DEVICE Left: FEMUR DISTAL [employer] 212.219 / NONE / NONE Scr Lk Sftp T25 5.0x60 - [id number] Implanted:Qty: 1 on 03/13/2011 at [facility] DEVICE Left: FEMUR DISTAL [employer] 212.221 / NONE / NONE Scr Indira Conic 7.3x85 - [id number] Implanted:Qty: 1 on 03/13/2011 at [facility] DEVICE Left: FEMUR DISTAL [employer] 02.207.28 5 / NONE / NONE Plt Lcp Cndl Lt 4.5x170 6h - [id number] Implanted:Qty: 1 on 03/13/2011 at [facility] DEVICE Left: FEMUR DISTAL [employer] 222.657 / NONE / NONE Description:6 hole 170mmleng th left 4.5mm lcp condylar plate. Scr Didier Sftp 3.5x60 F-Thrd - [id number] Implanted:Qty: 1 on 03/13/2011 at [facility] DEVICE Left: TIBIA PROXIMAL [employer] 204.860 / NONE / NONE Scr Star Lk Sftp 3.5x32 - [id number] Implanted:Qty: 1 on 03/13/2011 at [facility] DEVICE Left: TIBIA PROXIMAL [employer] 212.112 / NONE / NONE Scr Star Lk Sftp 3.5x55 - [id number] Implanted:Qty: 2 on 03/13/2011 at [facility] DEVICE Left: TIBIA PROXIMAL [employer] 212.123 / NONE / NONE Scr Star Lk Sftp 3.5x60 - [id number] Implanted:Qty: 2 on 03/13/2011 at [facility] DEVICE Left: TIBIA PROXIMAL [employer] 212.124 / NONE / NONE Plt Lcp M/Prox Lt 3.5x94 4h - [id number] Implanted:Qty: 1 on 03/13/2011 at [facility] DEVICE Left: TIBIA PROXIMAL [employer] 239.955 / NONE / NONE Scr Didier Ss Sftp 4.5x36 - [id number] Implanted:Qty: 1 on 03/13/2011 at [facility] DEVICE Right: FEMUR DISTAL [employer] 214.836 / NONE / NONE Scr Didier Ss Sftp 4.5x44 - [id number] Implanted:Qty: 1 on 03/13/2011 at [facility] DEVICE Right: FEMUR DISTAL [employer] 214.844 / NONE / NONE Scr Indira Lk 5.0x75 - [id number] Implanted:Qty: 1 on 03/13/2011 at [facility] DEVICE Right: FEMUR DISTAL [employer] 02.205.07 5 / NONE / NONE Scr Indira Lk 5.0x85 - [id number] Implanted:Qty: 2 on 03/13/2011 at [facility] DEVICE Right: FEMUR DISTAL [employer] 02.205.08 5 / NONE / NONE Scr Lk Sftp T25 5.0x44 - [id number] Implanted:Qty: 1 on 03/13/2011 at [facility] DEVICE Right: FEMUR DISTAL [employer] 212.216 / NONE / NONE Scr Lk Sftp T25 5.0x65 - [id number] Implanted:Qty: 1 on 03/13/2011 at [facility] DEVICE Right: FEMUR DISTAL [employer] 212.222 / NONE / NONE Plt Lp T Ti Str 4h - [id number] Implanted:Qty: 3 on 07/28/2014 by Cooper Shelley MD at [facility] DEVICE Right: SKULL [employer] 421.504 / / Scr Matrix Sfdr 4mm - [id number] Implanted:Qty: 6 on 07/28/2014 by Cooper Shelley MD at [facility] DEVICE Right: SKULL [employer] 04.503.10 4.01 / / Lead Linear 3-4 8 Contact 50cm - [id number] Implanted:Qty: 1 on 03/08/2016 by Zelalem Cohen DO at [facility] DEVICE N/A: OTHER-SEE DESCRIPTION [employer] [facility] 09/10/2017 [id number] 2500 / / [id number] Description:LUMBAR Lead Linear 3-4 8 Contact 50cm - [id number] Implanted:Qty: 1 on 03/08/2016 by Zelalem Cohen DO at [facility] DEVICE N/A: OTHER-SEE DESCRIPTION [employer] [facility] 09/10/2017 [id number] 2500 / / [id number] Description:LUMBAR Lead Linear 3-4 8 Contact 50cm - [id number] Implanted:Qty: 1 on 03/08/2016 by Zelalem Cohen DO at [facility] DEVICE N/A: OTHER-SEE DESCRIPTION [employer] [facility] 09/10/2017 [id number] 2500 / / [id number] Description:LUMBAR Lead Linear 3-4 8 Contact 50cm - [id number] Implanted:Qty: 1 on 03/08/2016 by Zelalem Cohen DO at [facility] DEVICE N/A: OTHER-SEE DESCRIPTION [employer] [facility] 09/10/2017 [id number] 2500 / / [id number] Description:LUMBAR Lead Linear 3-4 8 Contact 50cm - [id number] Implanted:Qty: 1 on 05/24/2016 by Zelalem Cohen DO at [facility] DEVICE N/A: SPINE LUMBAR POSTERIOR [employer] [facility] 01/31/2018 [id number] 2500 / [id number] / Lead Linear 3-4 8 Contact 50cm - [id number] Implanted:Qty: 1 on 05/24/2016 by Zelalem Cohen DO at [facility] DEVICE N/A: SPINE LUMBAR POSTERIOR [employer] [facility] 04/26/2018 [id number] 2500 / [id number] / Lead Linear 3-4 8 Contact 50cm - [id number] Implanted:Qty: 1 on 05/24/2016 by Zelalem Cohen DO at [facility] DEVICE N/A: SPINE LUMBAR POSTERIOR [employer] [facility] 04/26/2018 [id number] 2500 / [id number] / Lead Linear 3-4 8 Contact 50cm - [id number] Implanted:Qty: 1 on 05/24/2016 by Zelalem Cohen DO at [facility] DEVICE N/A: SPINE LUMBAR POSTERIOR [employer] [facility] 04/26/2018 [id number] 2500 / [id number] / Generator Pulse Spectra - [id number] Implanted:Qty: 1 on 05/24/2016 by Zelalem Cohen DO at [facility] DEVICE N/A: SPINE LUMBAR POSTERIOR [employer] [facility] 05/08/2018 [id number] / [id number] / [id number] [employer] - [id number] Implanted:Qty: 1 on 05/24/2016 by Zelalem Cohen DO at [facility] DEVICE N/A: SPINE LUMBAR POSTERIOR [employer] [facility] 05/02/2018 [id number] 60 / / [id number] Vol[employer] Ran - [id number] Implanted:Qty: 1 on 05/24/2016 by Zelalem Cohen DO at [facility] DEVICE N/A: SPINE LUMBAR POSTERIOR [employer] [facility] 02/28/2018 [id number] 60 / / [id number] Procedures Procedure Name Priority Date/Time Associated Diagnosis Comments CREATININE/GFR, WB POC Routine 01/06/2016 12:04 PM MILLER [facility]OD FLOUR Back pain, 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 HGB A1C Routine 07/29/2014 3:19 AM CDT from Last 3 Months or Most Recently Relevant to Health Maintenance Results * CREATININE/GFR, WB POC (01/06/2016 12:04 PM MILLER WOOD FLOUR) Creat Whole Blood 0.9 0.66 - 1.25 mg/dl [facility] GFR, Estimated >60 >60 ml/min/1.7 3m2 [facility] GFR, Est., If Black >60 >60 ml/min/1.7 3m2 [facility] 01/06/2016 12:0 4 PM MILLER WOOD FLOUR 01/06/2016 12:21 PM MILLER WOOD FLOUR Trae Blair MD LAB_[facility] [phone] * (ABNORMAL) HGB A1C (07/29/2014 3:19 AM CDT) Hgb A1c 6.4(H) 4.3 - 6.1 % [facility] Comment: The usual A1C goal for people with diabetes, age 18-75, is <8.0%. Physicians may recommend a higher or lower goal for specific individuals. 07/29/2014 3:19 AM CDT 07/29/2014 3:22 AM CDT [facility] - 07/29/2014 12:53 PM CDT Performed at [facility], [address] ??[address] [place] Wei PA-C LAB_[address] [address] from Last 3 Months or Most Recently [...] 5:44 PM 07/28/2014 6:50 PM Care Teams Fx Artist Relationship Specialty Start Date End Date Franklin Squires MD [address] [facility] [address] [place] [address] PCP - General Family Practice 03/08/16
--- OUTSIDE RECORDS SUMMARY | 2024-06-01 12:43 | XMS_ITS | Encounter Summary ---
Author Organization [facility] Address [address], [place] [address] Care Team Providers Care Manager Private Name Role Phone Franklin Squires MD Primary Care Provider Encounter Details Date Type Department Care Team (Late st Contact Info) Description 08/20/2014 Outside Hospital External to [facility] Social History Tobacco Use [...] filedocumented in this encounter Care Teams Manager Private Relationship Specialty Start Date End Date Franklin Squires MD [address] [place], [place] [address] [address] PCP - General Family Practice 03/08/16 documented as of this encounter
--- OUTSIDE RECORDS SUMMARY | 2024-06-01 12:43 | XMS_ITS | Encounter Summary ---
Author Organization [facility] Address [address] [address] Care Team Providers Care Carpet Floor Layer Apprentice Name Role Phone Franklin Squires MD [...] on filedocumented in this encounter Care Teams Carpet Floor Layer Apprentice Relationship Specialty Start Date End Date Franklin Squires MD 100 [facility] [place] [address] PCP - General Family Practice 03/08/16 documented as of this encounter
--- OUTSIDE RECORDS SUMMARY | 2024-06-01 12:44 | XMS_ITS | Encounter Summary ---
Author Organization [facility] [address] [address] Care Team Providers Care Rougher Machine Operator Name Role Phone Franklin Squires MD Primary Care Provider Encounter Details Date Type Department Care Team (Late st Contact Info) Description 02/05/2014 Correspondence [facility] Physical Therapy [address] [place] [address] Trudi Raymundo, PT [address] [place] [address] LETTER OF MEDICAL NECESSITY FOR A WHEELCHAIR [...] on filedocumented in this encounter Care Teams Rougher Machine Operator Relationship Specialty Start Date End Date Franklin Squires MD 100 [facility] [place] [address] PCP - General Family Practice 03/08/16 documented as of this encounter
--- OUTSIDE RECORDS SUMMARY | 2024-06-01 12:44 | XMS_ITS | Encounter Summary ---
Author Organization [facility] Address [address] [address] Care Team Providers Care Clinical Laboratory Manager Name Role Phone Franklin Squires MD Primary Care Provider Encounter Details Date Type Department Care Team (Late st Contact Info) Description 03/11/2014 Correspondence [facility] 401 Interventional Pain Management 401 [facility] [place] [address] Zelalem Cohen, DO [address] [place] [address] EMPI Social History Tobacco Use Types Packs/Day [...] filedocumented in this encounter Care Teams Clinical Laboratory Manager Relationship Specialty Start Date End Date Franklin Squires MD 100 [facility] [place] [address] PCP - General Family Practice 03/08/16 documented as of this encounter
--- OUTSIDE RECORDS SUMMARY | 2024-06-01 12:44 | XMS_ITS | Encounter Summary ---
Author Organization [facility] Address [address] [address] Care Team Providers Care Medical Record Technician Name Role Phone Franklin Squires MD [...] filedocumented in this encounter Care Teams Medical Record Technician Relationship Specialty Start Date End Date Franklin Squires MD 100 [facility] [address] PCP - General Family Practice 03/08/16 documented as of this encounter
--- OUTSIDE RECORDS SUMMARY | 2024-06-01 12:44 | XMS_ITS | Encounter Summary ---
Author Organization [facility] Address [address] [address] Care Team Providers Care Ethyl Blender Name Role Phone Franklin Squires MD Primary Care Provider Encounter Details Date Type Department Care Team (Late st Contact Info) Description 12/16/2013 Correspondence [facility] Radiology [address] [place] [address] Radiology, Provider MRI SAFETY SHEET AND COMPATIBILITY [...] Radiology, Provider - 12/16/2013 12:00 AM CST DIEM CLERK documented in this encounter Plan of Treatment Not on file documented as of this encounter Visit Diagnoses Not on filedocumented in this encounter Care Teams Ethyl Blender Relationship Specialty Start Date End Date Franklin Squires MD 100 [facility] [place] [address] PCP - General Family Practice 03/08/16 documented as of this encounter
--- OUTSIDE RECORDS SUMMARY | 2024-06-01 12:44 | XMS_ITS | Encounter Summary ---
Author Organization [facility] Address [address] [address] Care Team Providers Care Restaurant Shift Leader Name Role Phone Franklin Squires MD Primary Care Provider Encounter Details Date Type Department Care Team (Late st Contact Info) Description 01/08/2013 Scanned History External to Transferred Record, Provider [facility] Social History Tobacco Use Types Packs/Day [...] on filedocumented in this encounter Care Teams Restaurant Shift Leader Relationship Specialty Start Date End Date Franklin Squires MD 100 [facility] [place] [address] PCP - General Family Practice 03/08/16 documented as of this encounter
--- OUTSIDE RECORDS SUMMARY | 2024-06-01 12:44 | XMS_ITS | Encounter Summary ---
Author Organization [facility] Address [address] [address] Care Team Providers Care Foreclosure Specialist Name Role Phone Franklin Squires MD Primary Care Provider Encounter Details Date Type Department Care Team (Late st Contact Info) Description 04/24/2012 Correspondence [facility] Radiology [address] [place] [address] Radiology, Provider MRI SAFETY SHEET AND COMPATIBILITY [...] on filedocumented in this encounter Care Teams Foreclosure Specialist Relationship Specialty Start Date End Date Franklin Squires MD 100 [facility] [place] [address] PCP - General Family Practice 03/08/16 documented as of this encounter
--- OUTSIDE RECORDS SUMMARY | 2024-06-01 12:44 | XMS_ITS | Encounter Summary ---
Author Organization [facility] Address [address], [place] [address] Care Team Providers Care Web Worker Name Role Phone Franklin Squires MD Primary Care Provider [phone] Encounter Details Date Type Department Care Team (Late st Contact Info) Description 11/13/2012 Correspondence [facility] Radiology [address] [place] [address] Radiology, Provider MRI SAFETY SHEET AND COMPATIBILITY [...] PROVIDER - 11/13/2012 12:00 AM CST AL HEALTH ASSOCIATE documented in this encounter Plan of Treatment Not on file documented as of this encounter Visit Diagnoses Not on filedocumented in this encounter Care Teams Web Worker Relationship Specialty Start Date End Date Franklin Squires MD 100 [facility] [place] [address] PCP - General Family Practice 03/08/16 documented as of this encounter
--- OUTSIDE RECORDS SUMMARY | 2024-06-01 12:44 | XMS_ITS | Encounter Summary ---
Author Organization [facility] Address [address] [address] Care Team Providers Care Telephone Supervisor Name Role Phone Franklin Squires MD Primary Care Provider Encounter Details Date Type Department Care Team (Late st Contact Info) Description 05/04/2014 Correspondence [facility] 401 Physical Medicine 401 [facility] [place] [address] May Randle MD [address] [place] [address] LETTER OF MEDICAL NECESSITY FOR A WHEELCHAIR [...] on filedocumented in this encounter Care Teams Telephone Supervisor Relationship Specialty Start Date End Date Franklin Squires MD 100 [facility] [place] [address] PCP - General Family Practice 03/08/16 documented as of this encounter
--- OUTSIDE RECORDS SUMMARY | 2024-06-01 12:44 | XMS_ITS | Encounter Summary ---
Author Organization [facility] [address], [place] [address] Care Team Providers Care Teaseler Name Role Phone Franklin Squires MD Primary Care Provider [phone] Encounter Details Date Type Department Care Team (Late st Contact Info) Description 10/26/2013 Correspondence [facility] Physical Therapy [address] [place] [address] Trudi Raymundo, PT [address] [place] [address] LETTER OF MEDICAL NECESSITY Social History Tobacco [...] Raymundo, PT - 10/26/2013 12:00 AM CST AIDE documented in this encounter Plan of Treatment Not on file documented as of this encounter Visit Diagnoses Not on filedocumented in this encounter Care Teams Teaseler Relationship Specialty Start Date End Date Franklin Squires MD 100 [facility] [place] [address] PCP - General Family Practice 03/08/16 documented as of this encounter
--- OUTSIDE RECORDS SUMMARY | 2024-06-01 12:44 | XMS_ITS | Encounter Summary ---
Author Organization [facility] Address [address], [place] [address] Care Team Providers Care Manager Of Applications Development Name Role Phone Franklin qSuires MD Primary Care Provider [phone] Encounter Details Date Type Department Care Team (Late st Contact Info) Description 04/20/[address] [address] Radiology, Provider MRI SAFETY SHEET AND COMPATIBILITY [...] in this encounter Care Teams Manager Of Applications Development Relationship Specialty Start Date End Date Franklin Squires MD 100 [facility] [place] [address] PCP - General Family Practice 03/08/16 documented as of this encounter
--- OUTSIDE RECORDS SUMMARY | 2024-06-01 12:44 | XMS_ITS | Encounter Summary ---
Author Organization [facility] Address [address] [address] Care Team Providers Care Staff Anesthesiologist Name Role Phone Franklin Squires MD Primary Care Provider [phone] Encounter Details Date Type Department Care Team (Late st Contact Info) Description 07/23/2013 Correspondence [facility] 401 Interventional Pain Management 401 [facility] [place] [address] Zelalem Cohen DO [address] [place] [address] [employer] Social History Tobacco Use Types [...] Cohen MD - 07/23/2013 12:00 AM CDT OR RUNNER documented in this encounter Plan of Treatment Not on file documented as of this encounter Visit Diagnoses Not on filedocumented in this encounter Care Teams Staff Anesthesiologist Relationship Specialty Start Date End Date Franklin Squires MD 100 [facility] [place] [address] PCP - General Family Practice 03/08/16 documented as of this encounter
--- OUTSIDE RECORDS SUMMARY | 2024-06-01 12:44 | XMS_ITS | Encounter Summary ---
Author Organization [facility] Address [address] [address] Care Team Providers Care Talent Acquisition Operations Manager Name Role Phone Franklin Squires MD Primary Care Provider [phone] Encounter Details Date Type Department Care Team (Late st Contact Info) Description 09/17/2013 Correspondence External to External, [place] [address] EMPOWERMENT RULES Social History Tobacco Use Types [...] External, Provider - 09/17/2013 12:00 AM CST LIER DEVELOPMENT MANAGER documented in this encounter Plan of Treatment Not on file documented as of this encounter Visit Diagnoses Not on filedocumented in this encounter Care Teams Talent Acquisition Operations Manager Relationship Specialty Start Date End Date Franklin Squires MD 100 [facility] [place] [address] PCP - General Family Practice 03/08/16 documented as of this encounter
== END 2024-06-01 12:41 | disposition home or self-care (01) ==
LOC: WOUND 12:40
PROVIDERS: PCP Family Medicine; Visit Provider Nurse Practitioner Family
DX: L89.324 Pressure ulcer of left buttock, stage 4 (principal); E11.622 Type 2 diabetes mellitus with other skin ulcer; G82.50 Quadriplegia, unspecified; Z99.3 Dependence on wheelchair
CPT/HCPCS: 15271; 15272; G0463; Q4121

== ENCOUNTER 2024-06-08 12:39 | Outpatient (CLI) | payer MEDICARE, OTHER, SELFPAY ==
--- OUTSIDE RECORDS SUMMARY | 2024-06-08 12:42 | XMS_ITS | Encounter Summary ---
Author Organization [facility] Address [address] [address] Care Team Providers Care Heel Layer Name Role Phone Franklin Squires MD Primary Care Provider [phone] Encounter Details Date Type Department Care Team (Latest Contact Info) Description 12/11/2017 Correspondence Physiatry/Physical Medicine at [facility] 295 [facility] [place] [address] May Randle MD [address] [place] [address] [employer] Social History Tobacco Use [...] filedocumented in this encounter Care Teams Heel Layer Relationship Specialty Start Date End Date Franklin Squires MD [address] [place] [address] [place] [address] PCP - General Family Practice 03/08/16 documented as of this encounter
--- OUTSIDE RECORDS SUMMARY | 2024-06-08 12:42 | XMS_ITS | Clinical Summary ---
Author Organization [facility] Address [place], [place] [address] Care Team Providers Care Ambulance Paramedic Name Role Phone Zelalem Cohen MD Unavailable [phone] May Randle) Unavailable Franklin Squires MD Primary Care Provider Fred Craft Unavailable [phone] Diane Charles MD Unavailable [phone] Julia Ware RN Unavailable [phone] Allergies Active Allergy Reactions Criticality Noted Date [...] bedIndications:Non-heal ing surgical wound, subsequent encounter Drive [employer] 8 inch low loss mattress and 1/2 rails. Semi-electric bed. Length of need 6 weeks. Bed human resources operations specialist:no 1 unit 018 Active acetaminophen (TYLENOL [...] 60mm, Cut-to-Fit 01/16 - 2 11/18. Item #[id number]. 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),Anticoagulation monitoring, INR range 2-3,Anticoagulation monitoring, INR range 2-3,SDH (subdural hematoma) (HC) Take by mouth 7.5 mg (7.5 mg x 1) every day in the evening OR as directed Active baclofen (LIORESAL) 20 mg tabletIndications: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) TAKE 2 TABLETS THREE TIMES A DAY 540 Tablet 3 Active oxyCODONE 10 mg tabletIndications:Chron ic pain syndrome TAKE ONE TABLET BY MOUTH EVERY 6 HOURS 120 Tablet 024 Active baclofen (LIORESAL) 20 mg tabletIndications: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) TAKE 2 TABLETS THREE TIMES A DAY 540 Tablet 3 023 2023 Discontinued warfarin (COUMADIN) 7.5 mg [...] Date Resolved Date Soft tissue infection 10/22/20232023 intermission coordinator current use of anticoagulant 06/20/2023 01/08/2024 Cellulitis [...] delivery 04/16/2007 10/01/2007 Overview: S/P IVC Filter intermission coordinator (current) use of anticoagulants 02/19/2007 09/27/2008 Depressive disorder, not elsewhere classified 02/14/20 07 01/15/2018 Abnormality of gait 12/24/2006 09/27/20 08 Urinary tract infection, site not specified 12/24/2006 01/15/2018 BENIGN ESSENTIAL HYPERTENSION 12/24/2006 04/17/2016 Overview: borderline Necrotizing fasciitis 2018 Type 2 diabetes mellitus Encounters Date Type Department Care Team Description 06/03/2024 Anticoagulation (warfarin) [address] [phone] 1, [facility] Anticoagulation (Acelis) 06/02/[address] [phone] Franklin Squires MD Refill Request (Oxycodone) 05/20/2024 Anticoagulation (warfarin) [address] [phone] 1, [facility] Anticoagulation (Acelis) 05/14/[address] [phone] Franklin Squires MD Refill Request (Baclofen) 05/14/[address] [address] Franklin Squires MD Refill Request (Warfarin) 05/13/2024 Anticoagulation (warfarin) [address] [place] [address] 1, [facility] Anticoagulation (Acelis) 05/11/[address] [place] [address] Franklin Squires MD Form (Physician Orders and Home Health Certification and Plan of Care.) 05/06/2024 Anticoagulation (warfarin) [address] [place] [address] 1, [facility] Anticoagulation (Acelis) 05/05/[address] [place] [address] Franklin Squires MD Form (60 Day Summary Report) 05/05/[address] [place] [address] Franklin Squires MD Refill Request (Warfarin) 05/04/[address] [place] [address] Franklin Squires MD Form 05/04/[address] [place] [address] Franklin Squires MD Refill Request (Oxycodone) 05/01/2024 Anticoagulation (warfarin) [address] [place] [address] 1, [facility] Anticoagulation (Acelis) 04/29/[address] [place] [address] Franklin Squires MD Refill Request (Duloxetine, Donepezil) 04/24/2024 2:49 PM CDT - 04/24/2024 2:[address] [facility] [address] [place] [address] Discharge Disposition: Against Medical Advice or Discontinued Care 04/24/2024 Travel 04/24/2024 Anticoagulation (warfarin) [facility] [address] [facility] [place] [phone] 1, [facility] Anticoagulation (Acelis) 04/21/2024 Telephone [facility] [address] [facility] [place] [address] Franklin Squires MD Refill Request (Gabapentin) 04/20/2024 Telephone [facility] [address] [place] [phone] Franklin Squires MD Form (Physician Orders. Urinary Catheter - Suprapubic. ) 04/20/2024 Refill [facility] [address] [place] [phone] Franklin Squires MD Refill Request (Gabapentin 400 mg) 04/13/[address] [phone] Franklin Squires MD Form (Standard Written Order: Rehab Accessories. Cushion, Quadtro Select HI PRO 20x20 or 11x11 CELL) 04/07/2024 Anticoagulation (warfarin) [address] [address] 1, [facility] Anticoagulation (acelis) 04/07/[address] [address] Franklin Squires MD Form (Physician Orders) 04/03/2024 2:30 PM CDT Office Visit [address] [phone] Franklin Squires MD Follow Up (6 week follow up) 04/03/2024 Travel 04/02/[address] [place] [address] Franklin Squires MD Refill Request (Oxycodone) 03/28/2024 Refill [facility] [address] [facility] [place] [address] Franklin Squires MD Refill Request (Furosemide) 03/20/2024 4:32 PM CDT - 03/20/2024 8:[address] [facility] [address] [place] [address] Quan Corbett PA Suprapubic catheter dysfunction, initial encounter (HC) (Primary Dx) Discharge Disposition: Home Self Care 03/20/2024 Travel 03/20/[address] [place] [address] Franklin Squires MD other (FYI / UPDATE ) 03/19/2024 Anticoagulation (warfarin) [address] [place] [address] 1, [facility] Anticoagulation (acelis) 03/13/2024 2:10 PM CDT Orders Only [address] [phone] Lab, [facility] 03/13/2024 Travel 03/10/[address] [place] [address] Franklin Squires MD Form (Home Health Certification and Plan of Care. ) 03/10/[address] [place] [address] Franklin Squires MD Form (60 day summary report. SNV 2x/wk for wound care.) from Last 3 Months Immunizations Name Administration [...] Description 07/02/2024 1:30 PM CDT Office Visit [address] [phone] Franklin Squires MD [address] [place] [phone] 07/08/2024 1:30 PM CDT Nurse/Clinic Staff Only [address] [phone] Health Maintenance Due Date Last Done Comments [...] Associated Diagnosis Comments HOME MONITOR AC Routine 06/03/2024 12:00 AM CDT HOME MONITOR AC Routine 05/20/2024 12:00 AM [...] Suprapubic catheter (HC) Fever, unspecified fever cause from Last 3 Months Results * HOME MONITOR AC (06/03/2024 12:00 AM CDT) Only the most recent of8 resultswithin the time period is included. PATIENT REPORTED HOME INR 2.4 2.00 - 3.00 AL[facility] HOME MONITORING 06/03/2024 Franklin Squires MD OTHER [facility] [address] [place] [address] * BLADDER CATHETERIZATION (03/20/2024 7:52 PM [...] ?Risks discussed: ??Pain, incomplete procedure and infection [place] protocol: ??Procedure explained and questions answered to [...] CDT) CULTURE RESULT(A) 03/28/2024 11:28 AM CDT [facility] CULTURE 2+ Klebsiella pneumoniae 03/28/2024 11:28 AM CDT [facility] CULTURE 2+ Pseudomonas aeruginosa 03/28/2024 11:28 AM T [facility] CULTURE 2+ Staphylococcus aureus 03/28/2024 11:28 AM T [facility] Comment:Isolate is MRSA (Met hicillin-resistant Staph aureus). CULTURE 2+ Mixed brigette present 03/28/2024 11:28 AM CDT [facility] GRAM STAIN No PMNs 03/28/2024 11:28 AM CDT [facility] GRAM STAIN No Epithelial cells 03/28/2024 11:28 AM T [facility] GRAM STAIN No RBCs 03/28/2024 11:28 AM T [facility] GRAM STAIN 4+ Gram Negative Bacilli 03/28/2024 11:28 AM CDT [facility] GRAM STAIN 2+ Gram Positive Cocci 03/28/2024 11:28 AM CDT [facility] Other SPECIMEN FROM PENIS / Unknown Non-Blood / Unknown 03/20/2024 5:01 PM CDT 03/20/2024 5:05 PM CDT Narrative [facility] - 03/28/2024 11:28 AM CDT Mixed [...] TRIMETHOPRIM/SULF <=0.5/9.5: S Quan RAMSEY MICROBIOLOG Y [facility] [address] [place] [address], * (ABNORMAL) CBC WITH AUTO DIFFERENTIAL (03/20/2024 4:58 PM CDT) WHITE BLOOD COUNT 10.9 4.5 - 11.0 thou/cu mm 03/20/2024 5:06 PM [facility] RED BLOOD COUNT 4.92 4.30 - 5.90 mil/cu mm 03/20/2024 5:06 PM [facility] HEMOGLOBIN 12.7(L) 13.5 - 17.5 [...] <0.9 thou/cu mm 03/20/2024 5:06 PM CDT [facility] ABSOLUTE EOSINOPHILS 0.3 <0.5 thou/cu mm 03/20/2024 5:06 PM CDT [facility] ABSOLUTE BASOPHILS 0.0 <0.3 thou/cu mm 03/20/2024 5:06 PM CDT [facility] Blood BLOOD SPECIMEN / Unknown Butterfly / Unknown 03/20/2024 4:58 PM CDT 03/20/2024 5:02 PM CDT Quan RAMSEY HEMATOLOGY [facility] [address] [place] [address] * LACTATE VENOUS (03/20/2024 4:58 PM CDT) LACTATE,VENOUS 1.3 0.5 - 2.0 mmol/L 03/20/2024 5:21 PM CDT [facility] Blood BLOOD SPECIMEN / Unknown Butterfly / Unknown 03/20/2024 4:58 PM CDT 03/20/2024 5:02 PM CDT Quan RAMSEY CHEMISTRY [facility] [address] [place] [address] * (ABNORMAL) BASIC METABOLIC PANEL (03/20/2024 4:58 PM CDT) SODIUM 139 136 - 145 mmol/L 03/20/2024 5:22 PM CDT [facility] POTASSIUM 4.5 3.5 - 5.1 mmol/L 03/20/2024 5:22 PM CDT [facility] CHLORIDE 100 98 - 107 mmol/L 03/20/2024 5:22 PM CDT [facility] CO2,TOTAL 29 22 - 29 mmol/L 03/20/2024 5:22 PM T [facility] ANION GAP 10 5 [...] HEALTH LABORATORY BUN/CREAT RATIO 33(H) 10 - 5:22 PM [facility] eGFR [...] 03/20/2024 5:02 PM CDT Quan RAMSEY CHEMISTRY [facility] [address] [place] [phone] * (ABNORMAL) URINALYSIS MICROSCOPIC (03/13/2024 11:04 AM CDT) RBC 0-2 0-2, None Seen /HPF 03/13/2024 2:26 PM [facility] WBC 6-10(A) 0-2, 3-5, None Seen /HPF 03/13/2024 2:26 PM [facility] BACTERIA Few None Seen, Rare, Few Bacteria/ HPF 03/13/2024 2:26 PM [facility] EPITHELIAL CELLS Few None Seen, Few Epi/HPF 03/13/2024 2:26 PM CDT [facility] WHITE CELL CLUMPS Present(A) (none) 03/13/2024 2:26 PM CDT [facility] Urine URINE SPECIMEN / Unknown Non-Blood / Unknown 03/13/2024 11:04 AM CDT 03/13/2024 1:37 PM CDT Franklin Squires MD URINE Performing Organization Address [facility]/ZIP Co de Phone Number [facility] [address] [place] [address] * (ABNORMAL) URINE CULTURE (03/13/2024 11:04 AM CDT) CULTURE RESULT(A) 03/16/2024 9:13 AM CDT [facility] CULTURE >100,000 CFU/mL Pseudomonas aeruginosa 03/16/2024 9:13 AM CDT [facility] CULTURE 50,000-100,000 CFU/mL Staphylococcus aureus 03/16/2024 9:13 AM CDT [facility] CULTURE 10,000-50,000 CFU/mL Enterobacter cloacae complex 03/16/2024 9:13 AM CDT [facility] Comment: May develop resistance during [...] AM CDT 03/13/2024 1:37 PM CDT Narrative [facility] - 03/16/2024 9:13 AM CDT May represent colonization. No further workup pending. Franklin Squires MD MICROBIOLOGY Performing Organization Address [facility]/ZIP Co de Phone Number [facility] [address] [place] [address], [place] * (ABNORMAL) UA W/ SEDIMENT EXAM [...] URINE Negative Negative mg/dL 03/13/2024 2:24 PM [facility] GLUCOSE, URINE Negative Negative mg/dL 03/13/2024 2:24 PM [facility] KETONES,URINE Negative Negative mg/dL 03/13/2024 2:24 PM [facility] BILIRUBIN,URI NE Negative Negative 03/13/2024 2:24 PM [facility] OCCULT BLOOD,URINE Moderate(A) Negative 03/13/2024 2:24 PM [facility] NITRITE Negative Negative 03/13/2024 2:24 PM [facility] LEUKOCYTE ESTERASE Moderate(A) Negative 03/13/2024 2:24 PM [facility] Urine URINE SPECIMEN / Unknown Non-Blood / Unknown 03/13/2024 11:04 AM CDT 03/13/2024 1:37 PM CDT Franklin Squires MD URINE [facility] [address] [place] [address] from Last 3 Months Additional Health Concerns [...] 12 months since positive culture): resides in acute/joint terminal attack controller care, receiving hemodialysis, has chronic open wounds/skin damage, has long-term percutaneous indwelling medical devices Exclusions for nares collection (if <12 months since positive culture) include all of the previous exclusions plus patients on antibiotics 7 days prior to collection 03/13/2018 03/20/2024 Advance Directives Documents on File Type Date Recorded 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
--- OUTSIDE RECORDS SUMMARY | 2024-06-08 12:42 | XMS_ITS | Continuity of Care Document ---
Author Name [facility] Organization [facility] Care Team Providers Care Transplant Registered Nurse Name Role Phone [facility] Unavailable Unavailable Problems Combined list of problems from 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 It does not include entries that were removed or entered in error. Problem Status Onset Date Problem Type Date of Resolution Comments Source Abnormal liver function Active Condition [facility] Anemia (SCT 974275525) Active Condition [facility] Anxiety ([facility] 36945616) Active Condition [facility] Autonomic dysreflexia Active Condition [facility] Chronic Pain Syndrome ([facility] 429008086) Active Condition [facility] Colostomy present Active Condition [facility] Constipation ([facility] 27422290) Active Condition [facility] Continuous opioid dependence Active Condition [facility] COPD - Chronic Obstructive Pulmonary Disease ([facility] 09582694) Active Condition [facility] Dementia Active Condition [facility] Depression ([facility] 41266663) Active Condition [facility] Diabetes Mellitus Type 2 (SCT 95655258) Active Condition [facility] Ependymoma of spinal cord Active Condition [facility] Hearing Loss ([facility] 17966426) Active Condition [facility] History of Deep Vein Thrombosis ([facility] 887579351) Active Condition [facility] History of pressure injury Active Condition [facility] HTN - Hypertension ([facility] 61875771) Active Condition [facility] Hyperlipidemia ([facility] 95732791) Active Condition [facility] Hyponatremia Active Condition [facility] Long-term current use of anticoagulant Active Condition [facility] Neurogenic Bladder ([facility] 333974206) Active Condition [facility] Neurogenic bowel Active Condition [facility] Osteoporosis ([facility] 19196605) Active Condition [facility] Paraplegia Active Condition [facility] Spasticity Active Condition [facility] Suprapubic urinary catheter in situ Active Condition [facility] Supraventricular tachycardia Active Condition [facility] Tinnitus ([facility] 21740413) Active Condition [facility] Vitamin D Deficiency ([facility] 5991648) Active Condition [facility] Diagnosis: ICD-10-CM Z73.6 Limitation of activities due to disability Active Diagnosis [facility] Diagnosis: ICD-10-CM G82.20 Paraplegia, unspecified Active Diagnosis [facility] Diagnosis: ICD-10-CM Z43.3 Encounter for attention to colostomy Active Diagnosis [facility] Diagnosis: ICD-10-CM Z71.3 Dietary counseling and surveillance Active Diagnosis [facility] Diagnosis: ICD-10-CM F32.A Depression, unspecified Active Diagnosis [facility] Medications Combined list of outpatient medications from Department of Defense and [facility] Affairs facilities.Medications provided include 1) outpatient [...] ed by: PIPO BARRETT Document ed at: [facility] ORAL ACTIVE Jagdish BARRETT 2022 [facility] AMLODIPINE BESYLATE (AMLODIPINE BESYLATE), 5 MG, TABLET, ORAL, [employer] 1000 ea. BOTTLE Active [id number] 2023 90 Pharmac y Data Transac tion Service Facilit y AMLODIPINE BESYLATE (amlodipine besylate), 5 MG, TABLET, ORAL, [employer], 1000 ea. BOTTLE Active [id number] 2023 90 Pharmac y Data Transac tion Service Facilit y AMLODIPINE BESYLATE 2.5MG TAB AMLODIPI NE BESYLATE 2.5MG TAB Non-VA TAKE TWO TABLETS BY MOUTH EVERY MORNING Feb 05, 2023 Non-[place] Document ed by: PIPO BARRETT Document ed at: [facility] ORAL ACTIVE Jagdish BARRETT 2022 [facility] AMOX TR-POTASSIU M CLAVULANATE (AMOXICILLI N/POTASSIUM CLAV), 875-125 MG, TABLET, ORAL, [employer] [place], 20 ea. BOTTLE Active [id number] 2022 14 Pharmac y Data Transac tion Service Facilit y AMOXICILLIN -CLAVULANAT E POTASS (amoxicilli n/potassium clavulanate ), 875-125 MG, TABLET, ORAL, [employer] [place],, 20 ea. BOTTLE Active [id number] 2023 20 Pharmac y Data Transac tion Service Facilit y AMOXICILLIN -CLAVULANAT E POTASS (amoxicilli n/potassium clavulanate ), 875-125 MG, TABLET, ORAL, [employer] [place],, 20 ea. BOTTLE Active [id number] 2023 56 Pharmac y Data Transac tion Service Facilit y ARIPIPRAZOL E (aripiprazo le), 2 MG, TABLET, ORAL, [employer] PHARMACE, 500 ea. BOTTLE Active [id number] 2023 180 Pharmac y Data Transac tion Service Facilit y ARIPIPRAZOL E (aripiprazo le), 2 MG, TABLET, ORAL, [employer]ARMACE, 500 ea. BOTTLE Active [id number] 2023 180 Pharmac y Data Transac tion Service Facilit y ARIPIPRAZOL E TAB ARIPIPRA ZOLE TAB Non-VA TAKE 2MG BY MOUTH TWICE A DAY May 29, 2022 Non-VA Document ed by: SHANTAL HANSON Document ed at: [facility] ORAL ACTIVE Jey HANSON 2021 [facility] ATIVAN (LORAZEPAM) , 0.5 MG, TABLET, ORAL, VALEANT, 100 ea. BOTTLE Active [id number] 2023 120 Pharmac y Data Transac [...] BIOCON PHARMA I, 1000 ea. BOTTLE Active [id number] 2023 90 Pharmac y Data Transac tion Service Facilit y ATORVASTATI N CALCIUM (atorvastat in calcium), 40 MG, TABLET, ORAL, [employer] PHARMA I, 1000 ea. BOTTLE Active [id number] 2023 90 Pharmac y Data Transac tion Service Facilit y BACLOFEN (baclofen), 20 MG, TABLET, ORAL, [employer]., 1000 ea. BOTTLE Active [id number] 2023 540 Pharmac y Data Transac tion Service Facilit y BACLOFEN (baclofen), 20 MG, TABLET, ORAL, [employer]., 1000 ea. BOTTLE Active [id number] 2023 540 Pharmac y Data Transac tion Service Facilit y BACLOFEN 20MG TAB BACLOFEN 20MG TAB Non-VA TAKE TWO TABLETS BY MOUTH THREE TIMES A DAY Feb 05, 2023 Non-VA Document ed by: PIPO BARRETT Document ed at: [facility] ORAL ACTIVE Jagdish BARRETT 2022 [facility] BUPROPION HCL 150MG 12HR TAB,SA BUPROPIO N HCL 150MG 12HR TAB,SA Non-VA TAKE ONE TABLET BY MOUTH TWICE A DAY May 29, 2022 Non-VA Document ed by: SHANTAL HANSON Document ed at: [facility] ORAL ACTIVE Jey HANSON 2021 [facility] BUPROPION HCL SR (bupropion HCl), 150 MG, TAB SR 12H, ORAL, [employer]ACE[employer], 60 ea. BOTTLE Active [id number] 2023 180 Pharmac y Data Transac tion Service Facilit y BUPROPION HCL SR (bupropion HCl), 150 MG, TAB SR 12H, ORAL, P[employer]ARMACEU, 60 ea. BOTTLE Active [id number] 2023 180 Pharmac y Data Transac [...] 2021 [facility] CIPROFLOXAC IN HCL (CIPROFLOXA SAHR HCL), 750 MG, TABLET, ORAL, [employer] PHARM, 50 ea. BOTTLE Active [id number] 2023 70 Pharmac y Data Transac tion Service Facilit y DONEPEZIL HCL (DONEPEZIL HCL), 5 MG, TABLET, ORAL, [employer] 1000 ea. BOTTLE Active [id number] 2023 90 Pharmac y Data Transac tion Service Facilit y DONEPEZIL HCL (DONEPEZIL HCL), 5 MG, TABLET, ORAL, [employer] 1000 ea. BOTTLE Cancele d [id number] : 2023 0 Pharmac y Data Transac tion Service Facilit y DONEPEZIL HCL (DONEPEZIL HCL), 5 MG, TABLET, ORAL, [employer] 1000 ea. BOTTLE Active [id number] 2023 90 Pharmac y Data Transac tion Service Facilit y DONEPEZIL HCL 10MG TAB DONEPEZI L HCL 10MG TAB Non-VA TAKE ONE-HALF TABLET BY MOUTH EVERY DAY May 29, 2022 Non-VA Document ed by: SHANTAL HANSON Document ed at: [facility] ORAL ACTIVE Jey HANSON 2021 [facility] DULOXETINE HCL (duloxetine HCl), 60 MG, CAPSULE DR, ORAL, [employer] 1000 ea. BOTTLE Active [id number] 2023 180 Pharmac y Data Transac tion Service Facilit y DULOXETINE HCL (duloxetine HCl), 60 MG, CAPSULE DR, ORAL, [employer] 1000 ea. BOTTLE Active [id number] 2023 180 Pharmac y Data Transac tion Service Facilit y DULOXETINE HCL 30MG CAP,EC DULOXETI NE HCL 30MG CAP,EC Non-VA TAKE 2 CAPSULES BY MOUTH TWICE A DAY May 29, 2022 Non-VA Document ed by: SHANTAL HANSON Document ed at: [facility] ORAL ACTIVE Jey HANSON 2021 [facility] FAMOTIDINE (famotidine ), 20 MG, TABLET, ORAL, [employer]., 1000 ea. BOTTLE Active [id number] 2023 180 Pharmac y Data Transac tion Service Facilit y FAMOTIDINE 20MG TAB FAMOTIDI NE 20MG TAB Non-VA TAKE ONE TABLET BY MOUTH TWICE A DAY May 29, 2022 Non-VA Document ed by: SHANTAL HANSON Document ed at: [facility] ORAL ACTIVE Jey HANSON 2021 [facility] FUROSEMIDE (furosemide ), 40 MG, TABLET, ORAL, [employer], 1000 ea. BOTTLE Active [id number] 2023 180 Pharmac y Data Transac tion Service Facilit y FUROSEMIDE 40MG TAB FUROSEMI DE 40MG TAB Non-VA TAKE ONE TABLET BY MOUTH TWICE A DAY May 29, 2022 Non-VA Document ed by: SHANTAL HANSON Document ed at: [facility] ORAL ACTIVE Jey HANSON 2021 [facility] GABAPENTIN (gabapentin ), 400 MG, CAPSULE, ORAL, [employer] 500 ea. BOTTLE Active [id number] 2023 270 Pharmac y Data Transac tion Service Facilit y GABAPENTIN (gabapentin ), 400 MG, CAPSULE, ORAL, [employer]ARMAC, 500 ea. BOTTLE Active [id number] 2023 270 Pharmac y Data Transac tion Service Facilit y GABAPENTIN (gabapentin ), 400 MG, CAPSULE, ORAL, [employer] PHARMACE, 500 ea. BOTTLE Cancele d [id number] : 2023 0 Pharmac y Data Transac [...] ORAL, AUROB[employer]O PHARM, 500 ea. BOTTLE Active [id number] 2023 120 Pharmac y Data Transac tion Service Facilit y LORAZEPAM (lorazepam) , 0.5 MG, TABLET, ORAL, LEADING PHARMA, 1000 ea. BOTTLE Active [id number] 2023 120 Pharmac y Data Transac tion Service Facilit y LORAZEPAM (lorazepam) , 0.5 MG, TABLET, ORAL, LE[employer]ARMA, 1000 ea. BOTTLE Active [id number] 2023 120 Pharmac y Data Transac tion Service Facilit y LORAZEPAM (lorazepam) , 0.5 MG, TABLET, ORAL, [employer]ARMA, 1000 ea. BOTTLE Active [id number] 2023 120 Pharmac y Data Transac tion Service Facilit y LORAZEPAM (lorazepam) , 0.5 MG, TABLET, ORAL, [employer]ARMA, 500 ea. BOTTLE Active [id number] 2023 120 Pharmac y Data Transac tion Service Facilit y LORAZEPAM 0.5MG TAB LORAZEPA M 0.5MG TAB Non-VA TAKE ONE TABLET BY MOUTH THREE TIMES A DAY AND TAKE TWO TABLETS BY MOUTH AT BEDTIME Feb 05, 2023 Non-VA Document ed by: PIPO BARRETT Document ed at: [facility] ORAL ACTIVE Jagdish BARRETT 2022 [facility] MILK OF [place] MILK OF [place] [...] ed by: PIPO BARRETT Document ed at: [facility] NASAL ACTIVE Jagdish BARRETT 2022 [facility] OXYCODONE HCL (OXYCODONE HCL), 10 MG, TABLET, ORAL, [employer] 100 ea. BOTTLE Active [id number] 2023 120 Pharmac y Data Transac tion Service Facilit y OXYCODONE HCL (OXYCODONE HCL), 10 MG, TABLET, ORAL, [employer] 100 ea. BOTTLE Active [id number] 2023 120 Pharmac y Data Transac tion Service Facilit y OXYCODONE HCL (OXYCODONE HCL), 10 MG, TABLET, ORAL, [employer] 100 ea. BOTTLE Active [id number] 2023 120 Pharmac y Data Transac tion Service Facilit y OXYCODONE HCL (OXYCODONE HCL), 10 MG, TABLET, ORAL, [employer] 100 ea. BOTTLE Active [id number] 2023 120 Pharmac y Data Transac tion Service Facilit y OXYCODONE HCL (OXYCODONE HCL), 10 MG, TABLET, ORAL, [employer] 100 ea. BOTTLE Active [id number] 2023 120 Pharmac y Data Transac tion Service Facilit y OXYCODONE HCL (OXYCODONE HCL), 10 MG, TABLET, ORAL, [employer] 100 ea. BOTTLE Active [id number] 2023 120 Pharmac y Data Transac tion Service Facilit y OXYCODONE HCL (OXYCODONE HCL), 10 MG, TABLET, ORAL, [employer] 100 ea. BOTTLE Active [id number] 2022 120 Pharmac y Data Transac tion Service Facilit y OXYCODONE HCL 5MG TAB OXYCODON E HCL 5MG TAB Non-VA TAKE TWO TABLETS BY MOUTH FOUR TIMES A DAY Feb 05, 2023 Non-VA Document ed by: PIPO BARRETT Document ed [facility] Jagdish BARRETT 2022 [facility] POTASSIUM CHLORIDE (potassium chloride), 10 MEQ, TAB ER PRT, ORAL, [employer] PHARMACE, 100 ea. BOTTLE Active [id number] 2023 180 Pharmac y Data Transac tion Service Facilit y POTASSIUM CHLORIDE (potassium chloride), 10 MEQ, TAB ER PRT, ORAL, [employer] PH[employer]ACE, 100 ea. BOTTLE Active [id number] 2023 180 Pharmac y Data Transac tion Service Facilit y POTASSIUM CHLORIDE (potassium chloride), 20 MEQ, TAB ER PRT, ORAL, [employer] PHARMACE, 100 ea. BOTTLE Active [id number] 2023 90 Pharmac y Data Transac [...] WHITLOCK&N/UNI LUIS, 30 g TUBE Cancele d [id number] : 2023 0 Pharmac y Data Transac tion Service Facilit y WARFARIN SODIUM (warfarin sodium), 5 MG, TABLET, ORAL, [employer] 1000 ea. BOTTLE Cancele d [id number] : 2022 0 Pharmac y Data Transac tion Service Facilit y WARFARIN SODIUM (WARFARIN SODIUM), 5 MG, TABLET, ORAL, [employer] [place], 1000 ea. BOTTLE Active [id number] 2023 25 Pharmac y Data Transac tion Service Facilit y WARFARIN SODIUM (WARFARIN SODIUM), 5 MG, TABLET, ORAL, [employer] [place], 1000 ea. BOTTLE Active [id number] 2023 12 Pharmac y Data Transac tion Service Facilit y WARFARIN SODIUM (WARFARIN SODIUM), 5 MG, TABLET, ORAL, [employer] [place], 1000 ea. BOTTLE Active [id number] 2023 40 Pharmac y Data Transac tion Service Facilit y WARFARIN SODIUM (WARFARIN SODIUM), 5 MG, TABLET, ORAL, [employer] [place], 1000 ea. BOTTLE Cancele d [id number] : 2022 0 Pharmac y Data Transac tion Service Facilit y WARFARIN SODIUM (warfarin sodium), 7.5 MG, TABLET, ORAL, [employer] [place], 100 ea. BOTTLE Active [id number] 2023 51 Pharmac y Data Transac tion Service Facilit y WARFARIN SODIUM (warfarin sodium), 7.5 MG, TABLET, ORAL, [employer] [place], 100 ea. BOTTLE Active [id number] 2023 78 Pharmac y Data Transac tion Service Facilit y WARFARIN TAB WARFARIN TAB Non-VA TAKE 5MG BY MOUTH SUN/THUR S AND TAKE 7.5MG BY MOUTH ALL OTHER DAYS Feb 05, 2023 Non-VA Document ed by: PIPO BARRETT Document ed at: [facility] ORAL ACTIVE Jagdish BARRETT 2022 [facility] Allergies, Adverse Reactions, Alerts Combined list of allergies from 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 It does not include entries that were removed or entered in error. Substance Category Reaction Severity Reaction type Status Date Reported Comments Source AMOXICILLIN Propensity to adverse reactions to drug (finding) Eruption active 2 [facility] METOLAZONE Propensity to adverse reactions to drug (finding) Itching active 2 [facility] MORPHINE Propensity to adverse reactions to drug (finding) Delirium active 2 [facility] PIPERACILLIN Propensity to adverse reactions to drug (finding) Eruption active 2 [facility] SULFA DRUGS Propensity to adverse reactions to drug (finding) Eruption active 2 [facility] TAZOBACTAM SODIUM Propensity to adverse reactions to drug (finding) Eruption active 2 [facility] Immunizations Combined list of available immunizations from the 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 Status Comments Source COVID-19 (H-care), MRNA, LNP-S, BIVALENT, PF, 30 MCG/0.3 ML DOSE 2021 300 complet ed [facility] INFLUENZA, ADJUVANTED, QUADRIVALENT, PF 2021 205 complet ed [facility] INFLUENZA, UNSPECIFIED FORMULATION 2021 88 complet ed Clarence's recall [facility] TD (ADULT), 5 LF TETANUS TOXOID, PRESERVATIVE FREE, ADSORBED 2021 113 complet ed [facility] INFLUENZA, ADJUVANTED, QUADRIVALENT, PF 2020 205 complet ed [facility] INFLUENZA, UNSPECIFIED FORMULATION 2020 88 complet ed [facility] COVID-19 (H-care), MRNA, LNP-S, PF, 30 MCG/0.3 ML DOSE 3 2020 208 complet ed [facility] COVID-19 (H-care), MRNA, LNP-S, PF, 30 MCG/0.3 ML DOSE 2 2020 208 complet ed [facility] COVID-19 (PFIZER), MRNA, LNP-S, PF, 30 MCG/0.3 ML DOSE 1 2020 208 complet ed [facility] INFLUENZA, ADJUVANTED, QUADRIVALENT, PF 2019 205 complet ed [facility] INFLUENZA, ADJUVANTED, TRIVALENT, PF 2018 168 complet ed [facility] INFLUENZA, ADJUVANTED, TRIVALENT, PF 2017 168 complet ed [facility] INFLUENZA, HIGH-DOSE, TRIVALENT, PF 2016 135 complet ed [facility] INFLUENZA, ADJUVANTED, TRIVALENT, PF 2016 168 complet ed [facility] INFLUENZA, HIGH-DOSE, TRIVALENT, PF 2015 135 complet ed [facility] ZOSTER LIVE 2015 121 complet ed [facility] PNEUMOCOCCAL CONJUGATE PCV 13 2014 133 complet ed [facility] INFLUENZA, HIGH-DOSE, TRIVALENT, PF 2014 135 complet ed [facility] INFLUENZA, HIGH-DOSE, TRIVALENT, PF 2013 135 complet ed [facility] INFLUENZA, UNSPECIFIED FORMULATION 2013 88 complet ed [facility] INFLUENZA, SPLIT VIRUS, TRIVALENT, PRESERVATIVE 2012 141 complet ed [facility] ZOSTER LIVE 2012 121 complet ed [facility] INFLUENZA, SPLIT VIRUS, TRIVALENT, PRESERVATIVE 2011 141 complet ed [facility] INFLUENZA, SPLIT VIRUS, TRIVALENT, PF 2010 140 complet ed [facility] PNEUMOCOCCAL POLYSACCHARID E PPV23 2010 33 complet ed [facility] TDAP 2010 115 complet ed [facility] INFLUENZA, SPLIT VIRUS, TRIVALENT, PRESERVATIVE 2009 141 complet [facility] NOVEL INFLUENZA-H1N 1-09, ALL FORMULATIONS 2009 128 complet ed [facility] INFLUENZA, SPLIT VIRUS, TRIVALENT, PF 2008 140 complet ed [facility] PNEUMOCOCCAL POLYSACCHARID E PPV23 2008 33 complet ed [facility] INFLUENZA, SPLIT VIRUS, TRIVALENT, PRESERVATIVE 2008 141 complet ed [facility] INFLUENZA, SPLIT VIRUS, TRIVALENT, PRESERVATIVE 2007 141 complet ed [facility] INFLUENZA, SPLIT VIRUS, TRIVALENT, PRESERVATIVE 2005 141 complet ed [facility] INFLUENZA, SPLIT VIRUS, TRIVALENT, PRESERVATIVE 2004 141 complet ed [facility] PNEUMOCOCCAL POLYSACCHARID E PPV23 2004 33 complet ed [facility] INFLUENZA, SPLIT VIRUS, TRIVALENT, PRESERVATIVE 2003 141 complet ed [facility] Results Combined list of recent chemistry, hematology and other laboratory results from Department of Defense and Veterans Affairs, ranging from 15 months to all on record, depending upon the facility. Order Name Results Value Reference Range Date Interpretation Specimen Comments Source BASIC METABOLI C PANEL+MG CREATININE [MASS/VOLU ME] IN SERUM OR PLASMA 0.7 mg/dL 0.7 - 1.2 02/13 Specimen Type: PLASMA No comment entered. Ordering Provider: ANKUSH BOWMAN Report Released Date/Time: Feb 05, 2023 03:10 PM Reporting Lab: [facility] [address] Performing Lab: [facility] [address] [place] [facility] BASIC METABOLI C PANEL+MG UREA NITROGEN [MASS/VOLU ME] IN SERUM OR PLASMA 15 mg/dL 8 - 02/13 Specimen Type: PLASMA No comment entered. Ordering Provider: ANKUSH BOWMAN Report Released Date/Time: Feb 05, 2023 03:10 PM Reporting Lab: [facility] [address] Performing Lab: [facility] [address] [place] [facility] BASIC METABOLI C PANEL+MG GLUCOSE [MASS/VOLU ME] IN SERUM OR PLASMA 140 mg/dL 70 - 100 02/13 H Specimen Type: PLASMA No comment entered. Ordering Provider: ANKUSH BOWMAN Report Released Date/Time: Feb 05, 2023 03:10 PM Reporting Lab: [facility] [address] Performing Lab: [facility] [address] [place] [facility] BASIC METABOLI C PANEL+MG SODIUM [MOLES/VOL UME] IN SERUM OR PLASMA 135 mmol/L 136 - 145 04/05 /2023 L Specimen Type: PLASMA No comment entered. Ordering Provider: ANKUSH BOWMAN Report Released Date/Time: Feb 05, 2023 03:10 PM Reporting Lab: [facility] [address] Performing Lab: [facility] [address] [place] [facility] BASIC METABOLI C PANEL+MG POTASSIUM [MOLES/VOL UME] IN SERUM OR PLASMA 4.0 mmol/L 3.5 - 5.1 02/13 Specimen Type: PLASMA No comment entered. Ordering Provider: ANKUSH BOWMAN Report Released Date/Time: Feb 05, 2023 03:10 PM Reporting Lab: [facility] [address] Performing Lab: [facility] [address] [place] [facility] BASIC METABOLI C PANEL+MG CHLORIDE [MOLES/VOL UME] IN SERUM OR PLASMA 99 mmol/L 98 - 107 02/13 Specimen Type: PLASMA No comment entered. Ordering Provider: ANKUSH BOWMAN Report Released Date/Time: Feb 05, 2023 03:10 PM Reporting Lab: [facility] [address] Performing Lab: [facility] [address] [place] [facility] BASIC METABOLI C PANEL+MG CARBON DIOXIDE, TOTAL [MOLES/VOL UME] IN SERUM OR PLASMA 29 mmol/L 22 - 29 02/13 Specimen Type: PLASMA No comment entered. Ordering Provider: ANKUSH BOWMAN Report Released Date/Time: Feb 05, 2023 03:10 PM Reporting Lab: [facility] [address] Performing Lab: [facility] [address] [place] [facility] BASIC METABOLI C PANEL+MG CALCIUM [MASS/VOLU ME] IN SERUM OR PLASMA 9.2 mg/dL 8.4 - 10.2 02/13 Specimen Type: PLASMA No comment entered. Ordering Provider: ANKUSH BOWMAN Report Released Date/Time: Feb 05, 2023 03:10 PM Reporting Lab: [facility] [address] Performing Lab: [facility] [address] [place] [facility] BASIC METABOLI C PANEL+MG MAGNESIUM [MASS/VOLU ME] IN SERUM OR PLASMA 2.0 mg/dL 1.6 - 2.6 02/13 Specimen Type: PLASMA No comment entered. Ordering Provider: ANKUSH BOWMAN Report Released Date/Time: Feb 05, 2023 03:10 PM Reporting Lab: [facility] [address] Performing Lab: [facility] [address] [place] [facility] BASIC METABOLI C PANEL+MG ANION GAP IN SERUM OR PLASMA 7 mmol/L 5 - 15 02/13 Specimen Type: PLASMA No comment entered. Ordering Provider: ANKUSH BOWMAN Report Released Date/Time: Feb 05, 2023 03:10 PM Reporting Lab: [facility] [address] Performing Lab: [place] [id number] [place] [facility] BASIC METABOLI C PANEL+MG GLOMERULAR FILTRATION RATE/1.73 SQ M.PREDICTE D [VOLUME RATE/AREA] IN SERUM, PLASMA OR BLOOD BY CREATININE -BASED FORMULA (CKD-EPI) >90 60 02/13 Specimen Type: PLASMA No comment entered. Ordering Provider: ANKUSH BOWMAN Report Released Date/Time: Feb 05, 2023 03:10 PM Reporting Lab: [facility] [address] Performing Lab: [facility] [address] [place] [facility] CYSTATIN C WITH EGFR CYSTATIN C [MASS/VOLU ME] IN SERUM OR PLASMA 1.27 mg/L 0.51 - 1.05 02/13 H Specimen Type: PLASMA No comment entered. Ordering Provider: ANKUSH BOWMAN Report Released Date/Time: Feb 05, 2023 03:10 PM Reporting Lab: [facility] [address] Performing Lab: [facility] [address] [place] [facility] CYSTATIN C WITH EGFR CYSTATIN C AND GLOMERULAR FILTRATION RATE BY CYSTATIN C-BASED FORMULA PANEL - SERUM OR PLASMA 53 60 02/13 L Specimen Type: PLASMA No comment entered. Ordering Provider: ANKUSH BOWMAN Report Released Date/Time: Feb 05, 2023 03:10 PM Reporting Lab: [facility] [address] Performing Lab: [facility] [address] [place] [facility] URINALYS IS COLOR OF URINE YELLOW 10/08 Specimen Type: URINE No comment entered. Ordering Provider: ANKUSH BOWMAN Report Released Date/Time: Sep 24, 2022 01:55 PM Reporting Lab: [facility] [address] Performing Lab: [facility] [address] [place] [facility] URINALYS IS SPECIFIC GRAVITY OF URINE 1.023 1.003 - 1.035 10/08 Specimen Type: URINE No comment entered. Ordering Provider: ANKUSH BOWMAN Report Released Date/Time: Sep 24, 2022 01:55 PM Reporting Lab: [facility] [address] Performing Lab: [facility] [address] [place] [facility] URINALYS IS BILIRUBIN. TOTAL [PRESENCE] IN URINE BY TEST STRIP NEGATIVE 10/08 Specimen Type: URINE No comment entered. Ordering Provider: ANKUSH BOWMAN Report Released Date/Time: Sep 24, 2022 01:55 PM Reporting Lab: [facility] [address] Performing Lab: [facility] [facility] [address] [place] [facility] URINALYS IS KETONES [MASS/VOLU ME] IN URINE BY TEST STRIP NEGATIVE 10/08 Specimen Type: URINE No comment entered. Ordering Provider: ANKUSH BOWMAN Report Released Date/Time: Sep 24, 2022 01:55 PM Reporting Lab: [facility] [address] Performing Lab: [facility] [address] [place] [facility] URINALYS IS GLUCOSE [MASS/VOLU ME] IN URINE BY TEST STRIP NEGATIVE mg/dL <30 - 30 10/08 Specimen Type: URINE No comment entered. Ordering Provider: ANKUSH BOWMAN Report Released Date/Time: Sep 24, 2022 01:55 PM Reporting Lab: [facility] [address] Performing Lab: [facility] [address] [place] [facility] URINALYS IS PROTEIN [MASS/VOLU ME] IN URINE BY TEST STRIP 30 mg/dL <20 - 20 10/08 Specimen Type: URINE No comment entered. Ordering Provider: ANKUSH BOWMAN Report Released Date/Time: Sep 24, 2022 01:55 PM Reporting Lab: [facility] [address] Performing Lab: [facility] [address] [place] [facility] URINALYS IS PH OF URINE BY TEST STRIP 7.5 5.0 - 8.0 10/08 Specimen Type: URINE No comment entered. Ordering Provider: ANKUSH BOWMAN Report Released Date/Time: Sep 24, 2022 01:55 PM Reporting Lab: [facility] [address] Performing Lab: [facility] [address] [place] [facility] URINALYS IS LEUKOCYTES [#/AREA] IN URINE SEDIMENT BY MICROSCOPY HIGH POWER FIELD >180/[HP F] 0 - 7 10/08 H Specimen Type: URINE No comment entered. Ordering Provider: ANKUSH BOWMAN Report Released Date/Time: Sep 24, 2022 01:55 PM Reporting Lab: [facility] [address] Performing Lab: [facility] [address] [place] [facility] URINALYS IS BACTERIA [PRESENCE] IN URINE SEDIMENT BY LIGHT MICROSCOPY MANY 10/08 Specimen Type: URINE No comment entered. Ordering Provider: ANKUSH BOWMAN Report Released Date/Time: Sep 24, 2022 01:55 PM Reporting Lab: [facility] [address] Performing Lab: [facility] [address] [place] [facility] URINALYS IS ERYTHROCYT ES [#/AREA] IN URINE SEDIMENT BY MICROSCOPY HIGH POWER FIELD 33 /[HPF] 0 - 3 10/08 H Specimen Type: URINE No comment entered. Ordering Provider: ANKUSH BOWMAN Report Released Date/Time: Sep 24, 2022 01:55 PM Reporting Lab: [facility] [address] Performing Lab: [facility] [address] [place] [facility] URINALYS IS APPEARANCE OF URINE EX.TURBI D 10/08 Specimen Type: URINE No comment entered. Ordering Provider: ANKUSH BOWMAN Report Released Date/Time: Sep 24, 2022 01:55 PM Reporting Lab: [facility] [address] Performing Lab: [facility] [address] [place] [facility] URINALYS IS EPITHELIAL CELLS.SQUA MOUS [#/AREA] IN URINE SEDIMENT BY MICROSCOPY HIGH POWER FIELD 1 /[HPF] 10/08 Specimen Type: URINE No comment entered. Ordering Provider: ANKUSH BOWMAN Report Released Date/Time: Sep 24, 2022 01:55 PM Reporting Lab: [facility] [address] Performing Lab: [facility] [address] [place] [facility] URINALYS IS HEMOGLOBIN [PRESENCE] IN URINE BY TEST STRIP 1+ 10/08 Specimen Type: URINE No comment entered. Ordering Provider: ANKUSH BOWMAN Report Released Date/Time: Sep 24, 2022 01:55 PM Reporting Lab: [facility] [address] Performing Lab: [facility] [address] [place] [facility] URINALYS IS NITRITE [PRESENCE] IN URINE BY TEST STRIP NEGATIVE 10/08 Specimen Type: URINE No comment entered. Ordering Provider: ANKUSH BOWMAN Report Released Date/Time: Sep 24, 2022 01:55 PM Reporting Lab: [facility] [address] Performing Lab: [facility] [address] [place] [facility] URINALYS IS LEUKOCYTE CLUMPS [#/VOLUME] IN URINE BY AUTOMATED COUNT PRESENT 10/08 Specimen Type: URINE No comment entered. Ordering Provider: ANKUSH BOWMAN Report Released Date/Time: Sep 24, 2022 01:55 PM Reporting Lab: [facility] [address] Performing Lab: [facility] [address] [place] [facility] URINALYS IS LEUKOCYTE ESTERASE [PRESENCE] IN URINE BY TEST STRIP 500 10/08 Specimen Type: URINE No comment entered. Ordering Provider: ANKUSH BOWMAN Report Released Date/Time: Sep 24, 2022 01:55 PM Reporting Lab: [facility] [address] Performing Lab: [facility] [address] [place] [facility] ALBUMIN ALBUMIN [MASS/VOLU ME] IN SERUM OR PLASMA 4.2 g/dL 3.5 - 5.2 10/08 Specimen Type: PLASMA No comment entered. Ordering Provider: ANKUSH BOWMAN Report Released Date/Time: Sep 24, 2022 01:55 PM Reporting Lab: [facility] [address] Performing Lab: [facility] [address] [place] [facility] PRE-ALBU MIN PREALBUMIN [MASS/VOLU ME] IN SERUM OR PLASMA 28.4 mg/dL 14.0 - 45.0 10/08 Specimen Type: SERUM No comment entered. Ordering Provider: ANKUSH BOWMAN Report Released Date/Time: Sep 24, 2022 01:55 PM Reporting Lab: [facility] [address] Performing Lab: [facility] [address] [place] [facility] CBC & DIFF LEUKOCYTES [#/VOLUME] IN BLOOD BY AUTOMATED COUNT 7.32 10*3/uL 4.0 - 11.0 10/08 Specimen Type: BLOOD Comment: Automated Differentia l Performed Ordering Provider: ANKUSH BOWMAN Report Released Date/Time: Sep 24, 2022 01:55 PM Reporting Lab: [facility] [address] Performing Lab: [facility] [address] [place] [facility] CBC & DIFF ERYTHROCYT ES [#/VOLUME] IN BLOOD BY AUTOMATED COUNT 4.80 10*6/uL 4.6 - 6.2 10/08 Specimen Type: BLOOD Comment: Automated Differentia l Performed Ordering Provider: ANKUSH BOWMAN Report Released Date/Time: Sep 24, 2022 01:55 PM Reporting Lab: [facility] [address] Performing Lab: [facility] [address] [place] [facility] CBC & DIFF HEMOGLOBIN [MASS/VOLU ME] IN BLOOD 14.7 g/dL 13.5 - 17.9 10/08 Specimen Type: BLOOD Comment: Automated Differentia l Performed Ordering Provider: ANKUSH BOWMAN Report Released Date/Time: Sep 24, 2022 01:55 PM Reporting Lab: [facility] [address] Performing Lab: [facility] [address] [place] [facility] CBC & DIFF HEMATOCRIT [VOLUME FRACTION] OF BLOOD BY AUTOMATED COUNT 44.2 41 - 54 10/08 Specimen Type: BLOOD Comment: Automated Differentia l Performed Ordering Provider: ANKUSH BOWMAN Report Released Date/Time: Sep 24, 2022 01:55 PM Reporting Lab: [facility] [address] Performing Lab: [facility] [address] [place] [facility] CBC & DIFF MCV [ENTITIC VOLUME] BY AUTOMATED COUNT 92.1 fL 80 - 100 10/08 Specimen Type: BLOOD Comment: Automated Differentia l Performed Ordering Provider: ANKUSH BOWMAN Report Released Date/Time: Sep 24, 2022 01:55 PM Reporting Lab: [facility] [address] Performing Lab: [facility] [address] [place] [facility] CBC & DIFF MCH [ENTITIC MASS] BY AUTOMATED COUNT 30.6 pg 27 - 33 10/08 Specimen Type: BLOOD Comment: Automated Differentia l Performed Ordering Provider: ANKUSH BOWMAN Report Released Date/Time: Sep 24, 2022 01:55 PM Reporting Lab: [facility] [address] Performing Lab: [facility] [address] [place] [facility] CBC & DIFF MCHC [MASS/VOLU ME] BY AUTOMATED COUNT 33.3 g/dL 32.0 - 37.5 10/08 Specimen Type: BLOOD Comment: Automated Differentia l Performed Ordering Provider: ANKUSH BOWMAN Report Released Date/Time: Sep 24, 2022 01:55 PM Reporting Lab: [facility] [address] Performing Lab: [facility] [address] [place] [facility] CBC & DIFF PLATELETS [#/VOLUME] IN BLOOD BY AUTOMATED COUNT 144 10*3/uL 150 - 400 10/08 L Specimen Type: BLOOD Comment: Automated Differentia l Performed Ordering Provider: ANKUSH BOWMAN Report Released Date/Time: Sep 24, 2022 01:55 PM Reporting Lab: [facility] [address] Performing Lab: [facility] [address] [place] [facility] CBC & DIFF PLATELET MEAN VOLUME [ENTITIC VOLUME] IN BLOOD BY AUTOMATED COUNT 10.8 fL 7.4 - 10.4 10/08 H Specimen Type: BLOOD Comment: Automated Differentia l Performed Ordering Provider: ANKUSH BOWMAN Report Released Date/Time: Sep 24, 2022 01:55 PM Reporting Lab: [facility] [address] Performing Lab: [facility] [address] [place] [facility] CBC & DIFF NEUTROPHIL S/100 LEUKOCYTES IN BLOOD BY MANUAL COUNT 55.5 10/08 Specimen Type: BLOOD Comment: Automated Differentia l Performed Ordering Provider: ANKUSH BOWMAN Report Released Date/Time: Sep 24, 2022 01:55 PM Reporting Lab: [facility] [address] Performing Lab: [facility] [address] [place] [facility] CBC & DIFF LYMPHOCYTE S/100 LEUKOCYTES IN BLOOD BY MANUAL COUNT 31.4 10/08 Specimen Type: BLOOD Comment: Automated Differentia l Performed Ordering Provider: ANKUSH BOWMAN Report Released Date/Time: Sep 24, 2022 01:55 PM Reporting Lab: [facility] [address] Performing Lab: [facility] [address] [place] [facility] CBC & DIFF MONOCYTES/ 100 LEUKOCYTES IN BLOOD BY AUTOMATED COUNT 10.2 10/08 Specimen Type: BLOOD Comment: Automated Differentia l Performed Ordering Provider: ANKUSH BOWMAN Report Released Date/Time: Sep 24, 2022 01:55 PM Reporting Lab: [facility] [address] Performing Lab: [facility] [address] [place] [facility] CBC & DIFF EOSINOPHIL S/100 LEUKOCYTES IN BLOOD BY AUTOMATED COUNT 2.2 10/08 Specimen Type: BLOOD Comment: Automated Differentia l Performed Ordering Provider: ANKUSH BOWMAN Report Released Date/Time: Sep 24, 2022 01:55 PM Reporting Lab: [facility] [address] Performing Lab: [facility] [address] [place] [facility] CBC & DIFF BASOPHILS/ 100 LEUKOCYTES IN BLOOD BY MANUAL COUNT 0.4 10/08 Specimen Type: BLOOD Comment: Automated Differentia l Performed Ordering Provider: ANKUSH BOWMAN Report Released Date/Time: Sep 24, 2022 01:55 PM Reporting Lab: [facility] [address] Performing Lab: [facility] [address] [place] [facility] CBC & DIFF ERYTHROCYT E DISTRIBUTI ON WIDTH [RATIO] BY AUTOMATED COUNT 15.9 11.5 - 14.5 10/08 H Specimen Type: BLOOD Comment: Automated Differentia l Performed Ordering Provider: ANKUSH BOWMAN Report Released Date/Time: Sep 24, 2022 01:55 PM Reporting Lab: [facility] [address] Performing Lab: [facility] [address] [place] [facility] CBC & DIFF LYMPHOCYTE S [#/VOLUME] IN BLOOD BY AUTOMATED COUNT 2.30 10*3/uL 1.0 - 4.0 10/08 Specimen Type: BLOOD Comment: Automated Differentia l Performed Ordering Provider: ANKUSH BOWMAN Report Released Date/Time: Sep 24, 2022 01:55 PM Reporting Lab: [facility] [address] Performing Lab: [facility] [address] [place] [facility] CBC & DIFF MONOCYTES [#/VOLUME] IN BLOOD BY AUTOMATED COUNT 0.75 10*3/uL 0.1 - 1.0 10/08 Specimen Type: BLOOD Comment: Automated Differentia l Performed Ordering Provider: ANKUSH BOWMAN Report Released Date/Time: Sep 24, 2022 01:55 PM Reporting Lab: [facility] [address] Performing Lab: [facility] [address] [place] [facility] CBC & DIFF NEUTROPHIL S [#/VOLUME] IN BLOOD BY AUTOMATED COUNT 4.06 10*3/uL 2.0 - 7.7 10/08 Specimen Type: BLOOD Comment: Automated Differentia l Performed Ordering Provider: ANKUSH BOWMAN Report Released Date/Time: Sep 24, 2022 01:55 PM Reporting Lab: [facility] [address] Performing Lab: [facility] [address] [place] [facility] CBC & DIFF EOSINOPHIL S [#/VOLUME] IN BLOOD BY AUTOMATED COUNT 0.16 10*3/uL 0 - 0.5 10/08 Specimen Type: BLOOD Comment: Automated Differentia l Performed Ordering Provider: ANKUSH BOWMAN Report Released Date/Time: Sep 24, 2022 01:55 PM Reporting Lab: [facility] [address] Performing Lab: [facility] [address] [place] [facility] CBC & DIFF BASOPHILS [#/VOLUME] IN BLOOD BY AUTOMATED COUNT 0.03 10*3/uL 0 - 0.2 10/08 Specimen Type: BLOOD Comment: Automated Differentia l Performed Ordering Provider: ANKUSH BOWMAN Report Released Date/Time: Sep 24, 2022 01:55 PM Reporting Lab: [facility] [address] Performing Lab: [facility] [address] [place] [facility] CBC & DIFF IG(META,MY MALACHI,PRO) 0.3 10/08 Specimen Type: BLOOD Comment: Automated Differentia l Performed Ordering Provider: ANKUSH BOWMAN Report Released Date/Time: Sep 24, 2022 01:55 PM Reporting Lab: [facility] [address] Performing Lab: [facility] [address] [place] [facility] CBC & DIFF IMMATURE GRANULOCYT ES [PRESENCE] IN BLOOD BY AUTOMATED COUNT 0.02 10*3/uL 0 - 0.1 10/08 Specimen Type: BLOOD Comment: Automated Differentia l Performed Ordering Provider: ANKUSH BOWMAN Report Released Date/Time: Sep 24, 2022 01:55 PM Reporting Lab: [facility] [address] Performing Lab: [facility] [address] [place] [facility] CYSTATIN C WITH EGFR CYSTATIN C [MASS/VOLU ME] IN SERUM OR PLASMA 1.38 mg/L 0.51 - 1.05 10/08 H Specimen Type: PLASMA No comment entered. Ordering Provider: ANKUSH BOWMAN Report Released Date/Time: Sep 24, 2022 01:55 PM Reporting Lab: [facility] [address] Performing Lab: [facility] [address] [place] [facility] CYSTATIN C WITH EGFR CYSTATIN C AND GLOMERULAR FILTRATION RATE BY CYSTATIN-B ASED FORMULA PANEL - SERUM OR PLASMA 48 60 10/08 L Specimen Type: PLASMA No comment entered. Ordering Provider: ANKUSH BOWMAN Report Released Date/Time: Sep 24, 2022 01:55 PM Reporting Lab: [facility] [address] Performing Lab: [facility] [address] [place] [facility] COMPREHE NSIVE METABOLI C PANEL+MG CREATININE [MASS/VOLU ME] IN SERUM OR PLASMA 0.7 mg/dL 0.7 - 1.2 10/08 Specimen Type: PLASMA No comment entered. Ordering Provider: ANKUSH BOWMAN Report Released Date/Time: Sep 24, 2022 01:55 PM Reporting Lab: [facility] [address] Performing Lab: [facility] [address] [place] [facility] COMPREHE NSIVE METABOLI C PANEL+MG UREA NITROGEN [MASS/VOLU ME] IN SERUM OR PLASMA 16 mg/dL 8 - 26 10/08 Specimen Type: PLASMA No comment entered. Ordering Provider: ANKUSH BOWMAN Report Released Date/Time: Sep 24, 2022 01:55 PM Reporting Lab: [facility] [address] Performing Lab: [facility] [address] [place] [facility] COMPREHE NSIVE METABOLI C PANEL+MG GLUCOSE [MASS/VOLU ME] IN SERUM OR PLASMA 94 mg/dL 70 - 100 10/08 Specimen Type: PLASMA No comment entered. Ordering Provider: ANKUSH BOWMAN Report Released Date/Time: Sep 24, 2022 01:55 PM Reporting Lab: [facility] [address] Performing Lab: [facility] [address] [place] [facility] COMPREHE NSIVE METABOLI C PANEL+MG SODIUM [MOLES/VOL UME] IN SERUM OR PLASMA 138 mmol/L 136 - 145 10/08 Specimen Type: PLASMA No comment entered. Ordering Provider: ANKUSH BOWMAN Report Released Date/Time: Sep 24, 2022 01:55 PM Reporting Lab: [facility] [address] Performing Lab: [facility] [address] [place] [facility] COMPREHE NSIVE METABOLI C PANEL+MG POTASSIUM [MOLES/VOL UME] IN SERUM OR PLASMA 3.9 mmol/L 3.5 - 5.1 10/08 Specimen Type: PLASMA No comment entered. Ordering Provider: ANKUSH BOWMAN Report Released Date/Time: Sep 24, 2022 01:55 PM Reporting Lab: [facility] [address] Performing Lab: [facility] [address] [place] [facility] COMPREHE NSIVE METABOLI C PANEL+MG CHLORIDE [MOLES/VOL UME] IN SERUM OR PLASMA 101 mmol/L 98 - 107 10/08 Specimen Type: PLASMA No comment entered. Ordering Provider: ANKUSH BOWMAN Report Released Date/Time: Sep 24, 2022 01:55 PM Reporting Lab: [facility] [address] Performing Lab: [facility] [address] [place] [facility] COMPREHE NSIVE METABOLI C PANEL+MG CARBON DIOXIDE, TOTAL [MOLES/VOL UME] IN SERUM OR PLASMA 28 mmol/L 22 - 29 10/08 Specimen Type: PLASMA No comment entered. Ordering Provider: ANKUSH BOWMAN Report Released Date/Time: Sep 24, 2022 01:55 PM Reporting Lab: [facility] [address] Performing Lab: [facility] [address] [place] [facility] COMPREHE NSIVE METABOLI C PANEL+MG CALCIUM [MASS/VOLU ME] IN SERUM OR PLASMA 9.7 mg/dL 8.4 - 10.2 10/08 Specimen Type: PLASMA No comment entered. Ordering Provider: ANKUSH BOWMAN Report Released Date/Time: Sep 24, 2022 01:55 PM Reporting Lab: [facility] [address] Performing Lab: [facility] [address] [place] [facility] COMPREHE NSIVE METABOLI C PANEL+MG PROTEIN [MASS/VOLU ME] IN SERUM OR PLASMA 7.6 g/dL 6.0 - 8.3 10/08 Specimen Type: PLASMA No comment entered. Ordering Provider: ANKUSH BOWMAN Report Released Date/Time: Sep 24, 2022 01:55 PM Reporting Lab: [facility] [address] Performing Lab: [facility] [address] [place] [facility] COMPREHE NSIVE METABOLI C PANEL+MG ALBUMIN [MASS/VOLU ME] IN SERUM OR PLASMA 4.2 g/dL 3.5 - 5.2 10/08 Specimen Type: PLASMA No comment entered. Ordering Provider: ANKUSH BOWMAN Report Released Date/Time: Sep 24, 2022 01:55 PM Reporting Lab: [facility] [address] Performing Lab: [facility] [address] [place] [facility] COMPREHE NSIVE METABOLI C PANEL+MG BILIRUBIN. TOTAL [MASS/VOLU ME] IN SERUM OR PLASMA 0.6 mg/dL 0.2 - 1.2 10/08 Specimen Type: PLASMA No comment entered. Ordering Provider: ANKUSH BOWMAN Report Released Date/Time: Sep 24, 2022 01:55 PM Reporting Lab: [facility] [address] Performing Lab: [facility] [address] [place] [facility] COMPREHE NSIVE METABOLI C PANEL+MG MAGNESIUM [MASS/VOLU ME] IN SERUM OR PLASMA 2.1 mg/dL 1.6 - 2.6 10/08 Specimen Type: PLASMA No comment entered. Ordering Provider: ANKUSH BOWMAN Report Released Date/Time: Sep 24, 2022 01:55 PM Reporting Lab: [facility] [address] Performing Lab: [facility] [address] [place] [facility] COMPREHE NSIVE METABOLI C PANEL+MG ANION GAP IN SERUM OR PLASMA 9 mmol/L 5 - 15 10/08 Specimen Type: PLASMA No comment entered. Ordering Provider: ANKUSH BOWMAN Report Released Date/Time: Sep 24, 2022 01:55 PM Reporting Lab: [facility] [address] Performing Lab: [facility] [address] [place] [facility] COMPREHE NSIVE METABOLI C PANEL+MG ALKALINE PHOSPHATAS E [ENZYMATIC ACTIVITY/V OLUME] IN SERUM OR PLASMA 96 U/L 40 - 150 10/08 Specimen Type: PLASMA No comment entered. Ordering Provider: ANKUSH BOWMAN Report Released Date/Time: Sep 24, 2022 01:55 PM Reporting Lab: [facility] [address] Performing Lab: [facility] [address] [place] [facility] COMPREHE NSIVE METABOLI C PANEL+MG ALANINE AMINOTRANS FERASE [ENZYMATIC ACTIVITY/V OLUME] IN SERUM OR PLASMA 29 U/L <55 - 55 10/08 Specimen Type: PLASMA No comment entered. Ordering Provider: ANKUSH BOWMAN Report Released Date/Time: Sep 24, 2022 01:55 PM Reporting Lab: [facility] [address] Performing Lab: [facility] [address] [place] [facility] COMPREHE NSIVE METABOLI C PANEL+MG ASPARTATE AMINOTRANS FERASE [ENZYMATIC ACTIVITY/V OLUME] IN SERUM OR PLASMA 22 U/L <34 - 34 10/08 Specimen Type: PLASMA No comment entered. Ordering Provider: ANKUSH BOWMAN Report Released Date/Time: Sep 24, 2022 01:55 PM Reporting Lab: [facility] [address] Performing Lab: [facility] [address] [place] [facility] COMPREHE NSIVE METABOLI C PANEL+MG GLOMERULAR FILTRATION RATE/1.73 SQ M.PREDICTE D [VOLUME RATE/AREA] IN SERUM, PLASMA OR BLOOD BY CREATININE -BASED FORMULA (CKD-EPI) >90 60 10/08 Specimen Type: PLASMA No comment entered. Ordering Provider: ANKUSH BOWMAN Report Released Date/Time: Sep 24, 2022 01:55 PM Reporting Lab: [facility] [address] Performing Lab: [facility] [address] [place] [facility] VIT D 25-OH,TO ZAMZAM 25-HYDROXY VITAMIN D3 [MASS/VOLU ME] IN SERUM OR PLASMA 54 ng/mL 12 - 50 10/08 H Specimen Type: SERUM No comment entered. Ordering Provider: ANKUSH BOWMAN Report Released Date/Time: Sep 24, 2022 01:55 PM Reporting Lab: [facility] [address] Performing Lab: [facility] [address] [place] [facility] Encounters Combined list of: 1) Encounters from Department of Veterans Affairs facilities going back up to thelast 18 months. 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 Location Location Details Encounter Type Encounter Number Reason For Visit Attending Provider ADM Date DC Date Status Disposition Source [place] [facility] PRO PHONE CALL 5-10 MIN [id number] Diagnos is: ICD-10- CM Z73.6 Limitat ion of activit ies due to disabil ity<br/ > AVE HALEY 12/13 [facility] Outpatient Encounter [id number] 01/08 [facility] PRO PHONE CALL 21-30 MIN [id number] Diagnos is: ICD-10- CM G82.20 Paraple mary kay, unspeci fied
Hever CASTRO 01/08 [facility] Outpatient Encounter [id number] 01/09 [facility] DIABETIC MANAGEMENT PROGRAM, [id number] Diagnos is: ICD-10- CM G82.20 Paraple mary kay, unspeci fied
TIGIST BASSETT A 01/30 [facility] Outpatient Encounter [id number] 02/05 [facility] MTMS BY PHARM ADDL 15 MIN [id number] Diagnos is: ICD-10- CM G82.20 Paraple mary kay, unspeci fied
MANPREET BARRETT 02/05 [facility] OT EVAL LOW COMPLEX 30 MIN [id number] Diagnos is: ICD-10- CM Z73.6 Limitat ion of activit ies due to disabil ity<br/ > Bryn PARDO 02/05 [facility] OFF/OP EST MARCH X REQ PHY/QHP [id number] Diagnos is: ICD-10- CM G82.20 Paraple mary kay, unspeci fied
JOSUÉ ZAMORA 02/05 [facility] PSYCH DIAGNOSTIC EVALUATION [id number] Diagnos is: ICD-10- CM F32.A Depress ion, unspeci fied
BINU GAMEZ 02/05 [facility] OFFICE O/P EST MOD 30-39 MIN [phone] Diagnos is: ICD-10- CM G82.20 Paraple mary kay, unspeci fied
ME LOGAN BOWMAN 02/05 [facility] PSYCH DIAGNOSTIC EVALUATION 02572-4.61 [phone] Diagnos is: ICD-10- CM G82.20 Paraple mary kay, unspeci fied
MAHI ABAD 02/05 [facility] MEDICAL NUTRITION INDIV IN [phone] Diagnos is: ICD-10- CM Z71.3 Dietary area counselor ing and surveil payal<b r/> Katia ARCHER 02/05 [facility] ENTEROSTOM AL THERAPY BY A RE [phone] Diagnos is: ICD-10- CM Z43.3 Encount er for attenti on to colosto my
VIOLA YOON 02/08 [facility] IS [facility] OFFICE O/P EST HI 40-54 MIN [phone] Diagnos is: ICD-10- CM G82.20 Paraple mary kay, unspeci fied
ME LOG[facility] BOWMAN 02/13 [facility] WHEELCHAIR MNGMENT TRAINING [id number] Diagnos is: ICD-10- CM Z73.6 Limitat ion of activit ies due to disabil ity<br/ > BOUSLOG,RY AN P 02/13 [facility] Outpatient Encounter [id number] 02/19 [facility] HC PRO PHONE CALL 11-20 MIN [id number] Diagnos is: ICD-10- CM Z73.6 Limitat ion of activit ies due to disabil ity<br/ > BOUSLOG,RY AN P 04/23 [facility] Outpatient Encounter [id number] 04/24 [facility] Outpatient Encounter [id number] 05/24 [facility] OFF/OP EST MAY X REQ PHY/QHP [id number] Diagnos is: ICD-10- CM G82.20 Paraple mary kay, unspeci fied
VIOLA YOON NDA 05/28 [facility] WHEELCHAIR MNGMENT TRAINING [id number] Diagnos is: ICD-10- CM Z73.6 Limitat ion of activit ies due to disabil ity<br/ > BOUSLOG,RY AN P 06/10 [facility] Outpatient Encounter [id number] 10/28 [facility] Outpatient Encounter [id number] 11/20 [facility] Outpatient Encounter [id number] 05/12 [facility] Social History Combined list of available smoking, tobacco, and other social history from 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 Social History Type Response Date Comment Sour e Tobacco smoking status [facility] NEVER USED 05/28/20 22 SADAF TREVINO [facility] This section is an empty social history section. [facility] Plan of Care List of future care activities from Department [facility] facilities. Additional future care activities may be listed in the Assessment and Plan section. Date/Time Care Activity Care Activity Detail Facili ty 06/24/2024 AMBULATORY - REHAB MEDICINE AMBULATORY - REHAB MEDICINE [facility] 05/12/2024 Consult Order SCI/D WHEELCHAIR SEATING/POSITIONING OUTPT Cons Barrel Washer Machine's Choice [facility] Advance Directives List of completed, amended, or rescinded Advance Directives on record at [facility] Affairs facilities. An actual copy of the Directive is not included. Date Advance Directive Provider Source 02/05/2023 ADVANCE DIRECTIVE DISCUSSION GUSTAVO ABAD [facility]
--- OUTSIDE RECORDS SUMMARY | 2024-06-08 12:42 | XMS_ITS ---
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
--- OUTSIDE RECORDS SUMMARY | 2024-06-08 12:42 | XMS_ITS | Clinical Summary ---
Author Organization [facility] Address [address] [place] [address] Care Team Providers Care Machine Loader Name Role Phone [place] Squires MD Primary Care Provider [phone] Source Comments You are receiving this document [...] for each transition of care or referral. 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 0 02/17/2014 [...] Comments Blood Pressure 120/63 01/18/2022 12:59 PM TITLE CURATIVE SPECIALIST Pulse 87 01/18/2022 12:59 PM TITLE CURATIVE SPECIALIST Temperature 36.3 ??C (97.4 ??F) 01/18/2022 12:59 [...] this topic Medical Devices Implanted Type Area Lab Support Technician Device Identifier Shelf Expiration Date Model / Serial / Lot [id number] 4ml Tisseel Explanted:([place] ntity not on file) BIOLOGIC N/A: NECK Lynne Fenwall 09/10/2011 [id number] / [id number] / [id number] Description:posterior Cath Intrathecal Indura - [id number] Implanted:Qty: 1 on 05/09/2010 at [facility] DEVICE Right: LUMBAR SPINE [employer] 01/18/2012 8709 / N/A / [id number] Cath Intrathecal Indura - [id number] Implanted:Qty: 1 on 05/29/2010 at [facility] DEVICE EduKoala 8709 / / Scr Indira Conic 7.3x80 - [id number] Implanted:Qty: 1 on 03/13/2011 at [facility] DEVICE Right: FEMUR DISTAL [employer] [place] 02.207.28 0 / NONE / NONE Plt Lcp Cndl Rt 4.5x170 6h - [id number] Implanted:Qty: 1 on 03/13/2011 at [facility] DEVICE Right: FEMUR DISTAL [employer] [place] 222.656 / NONE / NONE Description:6 hole 170mm rig ht 4.5mm lcp condylar plate Scr Didier Ss Sftp 4.5x40 - [id number] Implanted:Qty: 1 on 03/13/2011 at [facility] DEVICE Left: FEMUR DISTAL [employer] [place] 214.840 / NONE / NONE Scr Didier Ss Sftp 4.5x50 - [id number] Implanted:Qty: 1 on 03/13/2011 at [facility] DEVICE Left: FEMUR DISTAL [employer] [place] 214.850 / NONE / NONE Scr Indira Lk 5.0x80 - [id number] Implanted:Qty: 2 on 03/13/2011 at [facility] DEVICE Left: FEMUR DISTAL [employer] [place] 02.205.08 0 / NONE / NONE Scr Indira Lk 5.0x85 - [id number] Implanted:Qty: 2 on 03/13/2011 at [facility] DEVICE Left: FEMUR DISTAL [employer] [place] 02.205.08 5 / NONE / NONE Scr Lk Sftp T25 5.0x50 - [id number] Implanted:Qty: 1 on 03/13/2011 at [facility] DEVICE Left: FEMUR DISTAL [employer] [place] 212.219 / NONE / NONE Scr Lk Sftp T25 5.0x60 - [id number] Implanted:Qty: 1 on 03/13/2011 at [facility] DEVICE Left: FEMUR DISTAL [employer] [place] 212.221 / NONE / NONE Scr Indira Conic 7.3x85 - [id number] Implanted:Qty: 1 on 03/13/2011 at [facility] DEVICE Left: FEMUR DISTAL [employer] [place] 02.207.28 5 / NONE / NONE Plt Lcp Cndl Lt 4.5x170 6h - [id number] Implanted:Qty: 1 on 03/13/2011 at [facility] DEVICE Left: FEMUR DISTAL [employer] [place] 222.657 / NONE / NONE Description:6 hole 170mmleng th left 4.5mm lcp condylar plate. Scr Didier Sftp 3.5x60 F-Thrd - [id number] Implanted:Qty: 1 on 03/13/2011 at [facility] DEVICE Left: TIBIA PROXIMAL [employer] [place] 204.860 / NONE / NONE Scr Star Lk Sftp 3.5x32 - [id number] Implanted:Qty: 1 on 03/13/2011 at [facility] DEVICE Left: TIBIA PROXIMAL [employer] [place] 212.112 / NONE / NONE Scr Star Lk Sftp 3.5x55 - [id number] Implanted:Qty: 2 on 03/13/2011 at [facility] DEVICE Left: TIBIA PROXIMAL [employer] [place] 212.123 / NONE / NONE Scr Star Lk Sftp 3.5x60 - [id number] Implanted:Qty: 2 on 03/13/2011 at [facility] DEVICE Left: TIBIA PROXIMAL [employer] [place] 212.124 / NONE / NONE Plt Lcp M/Prox Lt 3.5x94 4h - [id number] Implanted:Qty: 1 on 03/13/2011 at [facility] DEVICE Left: TIBIA PROXIMAL [employer] [place] 239.955 / NONE / NONE Scr Didier Ss Sftp 4.5x36 - [id number] Implanted:Qty: 1 on 03/13/2011 at [facility] DEVICE Right: FEMUR DISTAL [employer] [place] 214.836 / NONE / NONE Scr Didier Ss Sftp 4.5x44 - [id number] Implanted:Qty: 1 on 03/13/2011 at [facility] DEVICE Right: FEMUR DISTAL [employer] [place] 214.844 / NONE / NONE Scr Indira Lk 5.0x75 - [id number] Implanted:Qty: 1 on 03/13/2011 at [facility] DEVICE Right: FEMUR DISTAL [employer] [place] 02.205.07 5 / NONE / NONE Scr Indira Lk 5.0x85 - [id number] Implanted:Qty: 2 on 03/13/2011 at [facility] DEVICE Right: FEMUR DISTAL [employer] [place] 02.205.08 5 / NONE / NONE Scr Lk Sftp T25 5.0x44 - [id number] Implanted:Qty: 1 on 03/13/2011 at [facility] DEVICE Right: FEMUR DISTAL [employer] [place] 212.216 / NONE / NONE Scr Lk Sftp T25 5.0x65 - [id number] Implanted:Qty: 1 on 03/13/2011 at [facility] DEVICE Right: FEMUR DISTAL [employer] [place] 212.222 / NONE / NONE Plt Lp T Ti Str 4h - [id number] Implanted:Qty: 3 on 07/28/2014 by Cooper Shelley MD at [facility] DEVICE Right: SKULL [employer] [place] 421.504 / / Scr Matrix Sfdr 4mm - [id number] Implanted:Qty: 6 on 07/28/2014 by Cooper Shelley MD at [facility] DEVICE Right: SKULL [employer] [place] 04.503.10 4.01 / / Lead Linear 3-4 8 Contact 50cm - [id number] Implanted:Qty: 1 on 03/08/2016 by Zelalem Cohen DO at [facility] DEVICE N/A: OTHER-SEE DESCRIPTION [facility] 09/10/2017 [id number] 2500 / / [id number] Description:LUMBAR Lead Linear 3-4 8 Contact 50cm - [id number] Implanted:Qty: 1 on 03/08/2016 by Zelalem Cohen DO at [facility] DEVICE N/A: OTHER-SEE DESCRIPTION [facility] 09/10/2017 [id number] 2500 / / [id number] Description:LUMBAR Lead Linear 3-4 8 Contact 50cm - [id number] Implanted:Qty: 1 on 03/08/2016 by Zelalem Cohen DO at [facility] DEVICE N/A: OTHER-SEE DESCRIPTION [facility] 09/10/2017 [id number] 2500 / / [id number] Description:LUMBAR Lead Linear 3-4 8 Contact 50cm - [id number] Implanted:Qty: 1 on 03/08/2016 by Zelalem Cohen DO at [facility] DEVICE N/A: OTHER-SEE DESCRIPTION [facility] 09/10/2017 [id number] 2500 / / [id number] Description:LUMBAR Lead Linear 3-4 8 Contact 50cm - [id number] Implanted:Qty: 1 on 05/24/2016 by Zelalem Cohen DO at [facility] DEVICE N/A: SPINE LUMBAR POSTERIOR [facility] 01/31/2018 [id number] 2500 / [id number] / Lead Linear 3-4 8 Contact 50cm - [id number] Implanted:Qty: 1 on 05/24/2016 by Zelalem Cohen DO at [facility] DEVICE N/A: SPINE LUMBAR POSTERIOR [facility] 04/26/2018 [id number] 2500 / [id number] / Lead Linear 3-4 8 Contact 50cm - [id number] Implanted:Qty: 1 on 05/24/2016 by Zelalem Cohen DO at [facility] DEVICE N/A: SPINE LUMBAR POSTERIOR [facility] 04/26/2018 [id number] 2500 / [id number] / Lead Linear 3-4 8 Contact 50cm - [id number] Implanted:Qty: 1 on 05/24/2016 by Zelalem Cohen DO at [facility] DEVICE N/A: SPINE LUMBAR POSTERIOR [facility] 04/26/2018 [id number] 2500 / [id number] / Generator Pulse Spectra - [id number] Implanted:Qty: 1 on 05/24/2016 by Zelalem Cohen DO at [facility] DEVICE N/A: SPINE LUMBAR POSTERIOR [facility] 05/08/2018 [id number] / [id number] / [id number] [place] - [id number] Implanted:Qty: 1 on 05/24/2016 by Zelalem Cohen DO at [facility] DEVICE N/A: SPINE LUMBAR POSTERIOR [facility] 05/02/2018 [id number] 60 / / [id number] [place] - [id number] Implanted:Qty: 1 on 05/24/2016 by Zelalem Cohen DO at [facility] DEVICE N/A: SPINE LUMBAR POSTERIOR [facility] 02/28/2018 [id number] 60 / / [id number] Procedures Procedure Name Priority Date/Time Associated Diagnosis Comments CREATININE/GFR, WB POC Routine 01/06/2016 12:04 PM TITLE CURATIVE SPECIALIST Back pain, 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 HGB A1C Routine 07/29/2014 3:19 AM CDT from Last 3 Months or Most Recently Relevant to Health Maintenance Results * CREATININE/GFR, WB POC (01/06/2016 12:04 PM TITLE CURATIVE SPECIALIST) Creat Whole Blood 0.9 0.66 - 1.25 mg/dl [facility] GFR, Estimated >60 >60 ml/min/1.7 3m2 [facility] GFR, Est., If Black >60 >60 ml/min/1.7 3m2 [facility] 01/06/2016 12:0 4 PM TITLE CURATIVE SPECIALIST 01/06/2016 12:21 PM TITLE CURATIVE SPECIALIST Trae Blair MD LAB_[facility] [phone] * (ABNORMAL) HGB A1C (07/29/2014 3:19 AM CDT) Hgb A1c 6.4(H) 4.3 - 6.1 % [facility] Comment: The usual A1C goal for people with diabetes, age 18-75, is <8.0%. Physicians may recommend a higher or lower goal for specific individuals. 07/29/2014 3:19 AM CDT 07/29/2014 3:22 AM CDT [facility] - 07/29/2014 12:53 PM CDT Performed at [facility], [address] ??[address] [place] Wei PA-C LAB_[address] [address] from Last 3 Months or Most Recently [...] 5:44 PM 07/28/2014 6:50 PM Care Teams Machine Loader Relationship Specialty Start Date End Date [place] Squirse MD [address] [address] [place] [address] PCP - General Family Practice 03/08/16
--- OUTSIDE RECORDS SUMMARY | 2024-06-08 12:43 | XMS_ITS | Encounter Summary ---
Author Organization [facility] Address [address], [place] [address] Care Team Providers Care Deliver Driver Name Role Phone [place] Squires MD [...] on filedocumented in this encounter Care Teams Deliver Driver Relationship Specialty Start Date End Date [place] Squ[place] MD [address] [facility] [address] PCP - General Family Practice 03/08/16 documented as of this encounter
--- OUTSIDE RECORDS SUMMARY | 2024-06-08 12:43 | XMS_ITS | Encounter Summary ---
Author Organization [facility] Address [address], [place] [address] Care Team Providers Care Architectural Draftsman Name Role Phone [place] Squires MD Primary Care Provider [phone] Encounter Details Date Type Department Care Team (Late st Contact Info) Description 07/23/2013 [facility] 401 Interventional Pain Management 401 [facility] [place] [address] Zelalem Cohen DO [address] [place] [address] EXPRESS SCRIPT Social History Tobacco Use Types [...] Cohen MD - 07/23/2013 12:00 AM CDT IC FINANCE SPECIALIST documented in this encounter Plan of Treatment Not on file documented as of this encounter Visit Diagnoses Not on filedocumented in this encounter Care Teams Architectural Draftsman Relationship Specialty Start Date End Date [place] MD 100 [facility] [address] PCP - General Family Practice 03/08/16 documented as of this encounter
--- OUTSIDE RECORDS SUMMARY | 2024-06-08 12:43 | XMS_ITS | Encounter Summary ---
Author Organization [facility] Address [address], [place] [address] Care Team Providers Care Forensic Ballistics Expert Name Role Phone [place] Squires MD [...] filedocumented in this encounter Care Teams Forensic Ballistics Expert Relationship Specialty Start Date End Date [place] Squires MD 100 [facility] [place] [address] PCP - General Family Practice 03/08/16 documented as of this encounter
--- OUTSIDE RECORDS SUMMARY | 2024-06-08 12:43 | XMS_ITS | Encounter Summary ---
Author Organization [facility] Address [address] [address] Care Team Providers Care Water Resources Engineer Name Role Phone [place] Squires MD [...] filedocumented in this encounter Care Teams Water Resources Engineer Relationship Specialty Start Date End Date [place] Squires MD 100 [facility] [address] PCP - General Family Practice 03/08/16 documented as of this encounter
--- OUTSIDE RECORDS SUMMARY | 2024-06-08 12:43 | XMS_ITS | Encounter Summary ---
Author Organization [facility] Address [address], [place] [address] Care Team Providers Care Linux Support Engineer Name Role Phone [place] Squires MD Primary Care Provider Encounter Details Date Type Department Care Team (Late st Contact Info) Description 08/20/2014 Outside Hospital External to [facility] Social History Tobacco Use [...] on filedocumented in this encounter Care Teams Linux Support Engineer Relationship Specialty Start Date End Date [place] Squires MD [address] [place], [place] [address] [address] PCP - General Family Practice 03/08/16 documented as of this encounter
--- OUTSIDE RECORDS SUMMARY | 2024-06-08 12:43 | XMS_ITS | Encounter Summary ---
Author Organization [facility] Address [address], [place] [address] Care Team Providers Care Switchboard Installer Name Role Phone [place] MD Primary Care Provider Encounter Details Date Type Department Care Team (Late st Contact Info) Description 12/16/2013 Correspondence [facility] Radiology [address] [place] [address] Radiology, Provider MRI SAFETY SHEET AND COMPATIBILITY [...] Radiology, Provider - 12/16/2013 12:00 AM CST C INSTRUCTOR documented in this encounter Plan of Treatment Not on file documented as of this encounter Visit Diagnoses Not on filedocumented in this encounter Care Teams Switchboard Installer Relationship Specialty Start Date End Date [place] Squires MD 100 [facility] [place] [address] PCP - General Family Practice 03/08/16 documented as of this encounter
--- OUTSIDE RECORDS SUMMARY | 2024-06-08 12:43 | XMS_ITS | Encounter Summary ---
Author Organization [facility] Address [address], [place] [address] Care Team Providers Care Space Control Supervisor Name Role Phone [place] Squ[place] MD Primary Care Provider Encounter Details Date Type Department Care Team (Late st Contact Info) Description 04/20/[address] [address] Radiology, Provider MRI SAFETY SHEET AND COMPATIBILITY [...] filedocumented in this encounter Care Teams Space Control Supervisor Relationship Specialty Start Date End Date [place] Squires MD 100 [facility] [place] [address] PCP - General Family Practice 03/08/16 documented as of this encounter
--- OUTSIDE RECORDS SUMMARY | 2024-06-08 12:43 | XMS_ITS | Encounter Summary ---
Author Organization [facility] [address], [place] [address] Care Team Providers Care Back Tender Name Role Phone [place] MD Primary Care Provider [phone] Encounter Details Date Type Department Care Team (Late st Contact Info) Description 11/10/2014 Correspondence [facility] Physical Therapy [address] [place] [address] Trudi Raymundo, PT [address] [place] [address] LETTER OF MEDICAL NECESSITY Social History Tobacco [...] in this encounter Care Teams Back Tender Relationship Specialty Start Date End Date [place] Squires MD 100 [facility] [place] [address] PCP - General Family Practice 03/08/16 documented as of this encounter
--- OUTSIDE RECORDS SUMMARY | 2024-06-08 12:43 | XMS_ITS | Encounter Summary ---
Author Organization [facility] Address [address], [place] [address] Care Team Providers Care Power Driven Brush Maker Name Role Phone [place] Squires MD Primary Care Provider [phone] Encounter Details Date Type Department Care Team (Late st Contact Info) Description 09/17/2013 Correspondence External to External, [place] [address] EMPOWERMENT RULES Social History Tobacco Use Types [...] External, Provider - 09/17/2013 12:00 AM CST FIXER documented in this encounter Plan of Treatment Not on file documented as of this encounter Visit Diagnoses Not on filedocumented in this encounter Care Teams Power Driven Brush Maker Relationship Specialty Start Date End Date [place] Squires MD 100 [facility] [place] [address] PCP - General Family Practice 03/08/16 documented as of this encounter
--- OUTSIDE RECORDS SUMMARY | 2024-06-08 12:43 | XMS_ITS | Encounter Summary ---
Author Organization [facility] Address [address], [place] [address] Care Team Providers Care Field Artillery Operations Man Name Role Phone [place] Squries MD Primary Care Provider [phone] Encounter Details Date Type Department Care Team (Late st Contact Info) Description 06/07/2015 Correspondence [facility] Radiology [address] [place] [address] Radiology, Provider MRI SAFETY SHEET AND COMPATIBILITY [...] filedocumented in this encounter Care Teams Field Artillery Operations Man Relationship Specialty Start Date End Date [place] Squires MD [address] [place], [place] [address] [address] PCP - General Family Practice 03/08/16 documented as of this encounter
--- OUTSIDE RECORDS SUMMARY | 2024-06-08 12:43 | XMS_ITS | Encounter Summary ---
Author Organization [facility] Address [address] [address] Care Team Providers Care Felt Puller Name Role Phone [place] MD Primary Care Provider [phone] Encounter Details Date Type Department Care Team (Latest Contact Info) Description 06/04/2014 [facility] 401 Interventional Pain Management 401 [place] [address] Zelalem Cohen, DO [address] [place] [address] MEDICAID PT INFORMATION EMPI RECOVERY Social History [...] on filedocumented in this encounter Care Teams Felt Puller Relationship Specialty Start Date End Date [place] MD 100 [facility] [address] PCP - General Family Practice 03/08/16 documented as of this encounter
--- OUTSIDE RECORDS SUMMARY | 2024-06-08 12:43 | XMS_ITS | Encounter Summary ---
Author Organization [facility] Address [address], [place] [address] Care Team Providers Care Sewer Connector Name Role Phone [place] Squires MD Primary Care Provider Encounter Details Date Type Department Care Team (Late st Contact Info) Description 08/20/2014 Outside Hospital External to [facility] H/P Social History Tobacco [...] on filedocumented in this encounter Care Teams Sewer Connector Relationship Specialty Start Date End Date [place] MD 100 [facility] [address] PCP - General Family Practice 03/08/16 documented as of this encounter
--- OUTSIDE RECORDS SUMMARY | 2024-06-08 12:43 | XMS_ITS | Encounter Summary ---
Author Organization [facility] Address [address], [place] [address] Care Team Providers Care Lofter Name Role Phone [place] Squires MD Primary Care Provider [phone] Encounter Details Date Type Department Care Team (Late st Contact Info) Description 01/06/2016 Correspondence [facility] Radiology [address] [place] [address] Radiology, Provider MRI SAFETY SHEET AND COMPATIBILITY [...] on filedocumented in this encounter Care Teams Lofter Relationship Specialty Start Date End Date [place] Squires MD [address] [place], [place] [address] [address] PCP - General Family Practice 03/08/16 documented as of this encounter
--- OUTSIDE RECORDS SUMMARY | 2024-06-08 12:43 | XMS_ITS | Encounter Summary ---
Author Organization [facility] Address [address], [place] [address] Care Team Providers Care Composition Siding Worker Name Role Phone [place] Squires MD Primary Care Provider [phone] Encounter Details Date Type Department Care Team (Late st Contact Info) Description 09/07/2014 Correspondence [facility] Radiology [address] [place] [address] Radiology, Provider MRI SAFETY SHEET AND COMPATIBILITY [...] on filedocumented in this encounter Care Teams Composition Siding Worker Relationship Specialty Start Date End Date [place] Squires MD [address] [place], [place] [address] [address] PCP - General Family Practice 03/08/16 documented as of this encounter
--- OUTSIDE RECORDS SUMMARY | 2024-06-08 12:43 | XMS_ITS | Encounter Summary ---
Author Organization [facility] Address [address], [place] [address] Care Team Providers Care Lockstitch Hemmer Name Role Phone [place] Squires MD Primary Care Provider Encounter Details Date Type Department Care Team (Late st Contact Info) Description 07/28/2014 Outside Hospital External to External, Provider No address [address] ER VISIT/TRANSFER Social History Tobacco Use [...] on filedocumented in this encounter Care Teams Lockstitch Hemmer Relationship Specialty Start Date End Date [place] Squires MD 100 [facility] [place] [place] [address] PCP - General Family Practice 03/08/16 documented as of this encounter
--- OUTSIDE RECORDS SUMMARY | 2024-06-08 12:43 | XMS_ITS | Encounter Summary ---
Author Organization [facility] Address [address] [address] Care Team Providers Care Rim Roller Operator Name Role Phone Franklin Squires MD Primary Care Provider [phone] Encounter Details Date Type Department Care Team (Late st Contact Info) Description 12/14/2014 [facility] 401 Physical Medicine [address] [place] [address] May Randle MD [address] [place] [address] DETAILED PRODUCT DESCRIPTION Social History Tobacco Use [...] on filedocumented in this encounter Care Teams Rim Roller Operator Relationship Specialty Start Date End Date Franklin Squires MD 100 [facility] [place] [address] PCP - General Family Practice 03/08/16 documented as of this encounter
--- OUTSIDE RECORDS SUMMARY | 2024-06-08 12:43 | XMS_ITS | Encounter Summary ---
Author Organization [facility] Address [address] [address] Care Team Providers Care Hide Buyer Name Role Phone Franklin Squires MD Primary Care Provider Encounter Details Date Type Department Care Team (Late st Contact Info) Description 03/11/2014 [facility] 401 Interventional Pain Management 401 [place] [address] Zelalem Cohen, DO [address] [place] [address] EMPI Social History Tobacco Use Types Packs/Day [...] MD 100 [facility] [place] [address] PCP - General Family Practice 03/08/16 documented as of this encounter
--- OUTSIDE RECORDS SUMMARY | 2024-06-08 12:43 | XMS_ITS | Encounter Summary ---
Author Organization [facility] [address] [address] Care Team Providers Care Manager Technical Sales Name Role Phone Franklin Squires MD Primary Care Provider Encounter Details Date Type Department Care Team (Late st Contact Info) Description 02/05/2014 Correspondence [facility] Physical Therapy [address] [place] [address] Trudi Raymundo, PT [address] [place] [address] LETTER OF MEDICAL NECESSITY FOR A WHEELCHAIR [...] filedocumented in this encounter Care Teams Manager Technical Sales Relationship Specialty Start Date End Date Franklin Squires MD 100 [facility] [place] [address] PCP - General Family Practice 03/08/16 documented as of this encounter
--- OUTSIDE RECORDS SUMMARY | 2024-06-08 12:43 | XMS_ITS | Encounter Summary ---
Author Organization [facility] Address [address] [address] Care Team Providers Care Shell Mold Bonding Machine Operator Name Role Phone Franklin Squires MD Primary Care Provider [phone] Encounter Details Date Type Department Care Team (Late st Contact Info) Description 05/04/2014 [facility] 401 Physical Medicine 401 [place] [address] May Randle MD [address] [place] [address] LETTER OF MEDICAL NECESSITY FOR A WHEELCHAIR [...] filedocumented in this encounter Care Teams Shell Mold Bonding Machine Operator Relationship Specialty Start Date End Date Franklin Squires MD 100 [facility] [place] [address] PCP - General Family Practice 03/08/16 documented as of this encounter
--- OUTSIDE RECORDS SUMMARY | 2024-06-08 12:43 | XMS_ITS | Encounter Summary ---
Author Organization [facility] Address [address] [address] Care Team Providers Care Auxiliary Equipment Tender Name Role Phone Franklin Squires MD Primary Care Provider Encounter Details Date Type Department Care Team (Late st Contact Info) Description 04/24/2012 Correspondence [facility] Radiology [address] [place] [address] Radiology, Provider MRI SAFETY SHEET AND COMPATIBILITY [...] on filedocumented in this encounter Care Teams Auxiliary Equipment Tender Relationship Specialty Start Date End Date Franklin Squires MD 100 [facility] [place] [address] PCP - General Family Practice 03/08/16 documented as of this encounter
--- OUTSIDE RECORDS SUMMARY | 2024-06-08 12:43 | XMS_ITS | Encounter Summary ---
Author Organization [facility] Address [address], [place] [address] Care Team Providers Care Critical Power Technician Name Role Phone Franklin Squires MD [...] on filedocumented in this encounter Care Teams Critical Power Technician Relationship Specialty Start Date End Date Franklin Squires MD 100 [facility] [place] [address] PCP - General Family Practice 03/08/16 documented as of this encounter
--- OUTSIDE RECORDS SUMMARY | 2024-06-08 12:43 | XMS_ITS | Encounter Summary ---
Author Organization [facility] Address [address], [place] [address] Care Team Providers Care Pill Maker Name Role Phone Franklin Squires MD Primary Care Provider [phone] Encounter Details Date Type Department Care Team (Late st Contact Info) Description 02/09/2016 [facility] 401 NeuroSurgery 401 [facility]. [place], [place] [id number] Jodi Aguila PA-C [address] [place] [address] PATIENT LIFT PRESCRIPTION Social History Tobacco Use [...] on filedocumented in this encounter Care Teams Pill Maker Relationship Specialty Start Date End Date Franklin Squires MD 100 [facility] [place] [id number] PCP - General Family Practice 03/08/16 documented as of this encounter
--- OUTSIDE RECORDS SUMMARY | 2024-06-08 12:43 | XMS_ITS | Encounter Summary ---
Author Organization [facility] Address [address] [address] Care Team Providers Care Nurse Aide Name Role Phone Franklin Squires MD Primary Care Provider Encounter Details Date Type Department Care Team (Late st Contact Info) Description 08/22/2014 Outside Hospital External to [facility] HOSP-D/C SUMMARY Social History Tobacco [...] on filedocumented in this encounter Care Teams Nurse Aide Relationship Specialty Start Date End Date Franklin Squires MD [address] [facility] [place] [address] PCP - General Family Practice 03/08/16 documented as of this encounter
--- OUTSIDE RECORDS SUMMARY | 2024-06-08 12:43 | XMS_ITS | Encounter Summary ---
Author Organization [facility] [address], [place] [address] Care Team Providers Care Paralegal Assistant Name Role Phone Franklin Squires MD Primary Care Provider [phone] Encounter Details Date Type Department Care Team (Late st Contact Info) Description 10/26/2013 Correspondence [facility] Physical Therapy [address] [place] [address] Trudi Raymundo, PT [address] [place] [address] LETTER OF MEDICAL NECESSITY Social History Tobacco [...] Raymundo, PT - 10/26/2013 12:00 AM CST CTOR BUSINESS INTEGRATION documented in this encounter Plan of Treatment Not on file documented as of this encounter Visit Diagnoses Not on filedocumented in this encounter Care Teams Paralegal Assistant Relationship Specialty Start Date End Date Franklin Squires MD [address] [facility] [place] [address] PCP - General Family Practice 03/08/16 documented as of this encounter
--- OUTSIDE RECORDS SUMMARY | 2024-06-08 12:43 | XMS_ITS | Encounter Summary ---
Author Organization [facility] Address [address], [place] [address] Care Team Providers Care Gang Supervisor Name Role Phone Franklin Squires MD Primary Care Provider [phone] Encounter Details Date Type Department Care Team [...] on filedocumented in this encounter Care Teams Gang Supervisor Relationship Specialty Start Date End Date Franklin Squires MD [address] [facility] [place] [address] PCP - General Family Practice 03/08/16 documented as of this encounter
--- OUTSIDE RECORDS SUMMARY | 2024-06-08 12:43 | XMS_ITS | Encounter Summary ---
Author Organization [facility] Address [address], [place] [address] Care Team Providers Care Spot Sprayer Name Role Phone Franklin Squires MD Primary Care Provider Encounter Details Date Type Department Care Team (Late st Contact Info) Description 11/13/2012 Correspondence [facility] Radiology [address] [place] [address] Radiology, Provider MRI SAFETY SHEET AND COMPATIBILITY [...] RADIOLOGY, PROVIDER - 11/13/2012 12:00 AM CST D WELFARE CASEWORKER documented in this encounter Plan of Treatment Not on file documented as of this encounter Visit Diagnoses Not on filedocumented in this encounter Care Teams Spot Sprayer Relationship Specialty Start Date End Date Franklin Squires MD 100 [facility] [place] [address] PCP - General Family Practice 03/08/16 documented as of this encounter
--- OUTSIDE RECORDS SUMMARY | 2024-06-08 12:43 | XMS_ITS | Encounter Summary ---
Author Organization [facility] Address [address] [address] Care Team Providers Care Jewelry Casting Model Maker Apprentice Name Role Phone Franklin Squires MD Primary Care Provider Encounter Details Date Type Department Care Team (Late st Contact Info) Description 11/23/2015 Correspondence External to External, [place] [address] LETTER [facility] Social History Tobacco Use Types [...] on filedocumented in this encounter Care Teams Jewelry Casting Model Maker Apprentice Relationship Specialty Start Date End Date Franklin Squires MD [address] [place] [address] [place] [address] PCP - General Family Practice 03/08/16 documented as of this encounter
--- OUTSIDE RECORDS SUMMARY | 2024-06-08 12:43 | XMS_ITS | Encounter Summary ---
Author Organization [facility] Address [address] [address] Care Team Providers Care Coal Mill Operator Name Role Phone Franklin Squires MD Primary Care Provider Encounter Details Date Type Department Care Team (Late st Contact Info) Description 06/11/2014 Correspondence [facility] 401 Physical Medicine 401 [place] [address] May Randle MD [address] [place] [address] [facility] Social History Tobacco Use Types [...] on filedocumented in this encounter Care Teams Coal Mill Operator Relationship Specialty Start Date End Date Franklin Squires MD [address] [facility] [place] [address] PCP - General Family Practice 03/08/16 documented as of this encounter
--- OUTSIDE RECORDS SUMMARY | 2024-06-08 12:43 | XMS_ITS | Encounter Summary ---
Author Organization [facility] Address [address], [place] [address] Care Team Providers Care Inclinometer Tester Name Role Phone Franklin Squires MD Primary Care Provider Encounter Details Date Type Department Care Team (Late st Contact Info) Description 12/16/2014 Correspondence External to External, [place] [address] MEDICARE PLAN OF CARE RECERT Social History [...] on filedocumented in this encounter Care Teams Inclinometer Tester Relationship Specialty Start Date End Date Franklin Squires MD [address] [place] [address] [facility] [place] [address] PCP - General Family Practice 03/08/16 documented as of this encounter
--- OUTSIDE RECORDS SUMMARY | 2024-06-08 12:43 | XMS_ITS | Encounter Summary ---
Author Organization [facility] [address], [place] [address] Care Team Providers Care Dampproofer Name Role Phone Franklin Squires MD Primary Care Provider Encounter Details Date Type Department Care Team (Late st Contact Info) Description 07/08/2015 Correspondence [facility] Physical Therapy [address] [place] [address] Trudi Raymundo, PT [address] [place] [address] ADDENDUM FOR LETTER OF MEDICAL NECESSITY Social [...] on filedocumented in this encounter Care Teams Dampproofer Relationship Specialty Start Date End Date Franklin Squires MD 100 [facility] [place] [address] PCP - General Family Practice 03/08/16 documented as of this encounter
== END 2024-06-08 12:40 | disposition home or self-care (01) ==
LOC: WOUND 12:40
PROVIDERS: PCP Family Medicine; Visit Provider Family Medicine
DX: L89.324 Pressure ulcer of left buttock, stage 4 (principal); E11.622 Type 2 diabetes mellitus with other skin ulcer; G82.50 Quadriplegia, unspecified; Z99.3 Dependence on wheelchair
CPT/HCPCS: 11042

== ENCOUNTER 2024-06-15 12:45 | Outpatient (CLI) | payer MEDICARE, OTHER, SELFPAY ==
--- OUTSIDE RECORDS SUMMARY | 2024-06-16 12:34 | XMS_ITS | Continuity of Care Document ---
Author Name [facility] Organization [facility] Care Team Providers Care Hand Candle Dipper Name Role Phone [facility] Unavailable Unavailable Problems Combined list of problems from 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 It does not include entries that were removed or entered in error. Problem Status Onset Date Problem Type Date of Resolution Comments Source Abnormal liver function Active Condition [facility] Anemia (SCT 427970450) Active Condition [facility] Anxiety ([facility] 08583461) Active Condition [facility] Autonomic dysreflexia Active Condition [facility] Chronic Pain Syndrome (SCT 819982924) Active Condition [facility] Colostomy present Active Condition [facility] Constipation ([facility] 38021749) Active Condition [facility] Continuous opioid dependence Active Condition [facility] COPD - Chronic Obstructive Pulmonary Disease ([facility] 11687543) Active Condition [facility] Dementia Active Condition [facility] Depression ([facility] 81964185) Active Condition [facility] Diabetes Mellitus Type 2 (SCT 58510671) Active Condition [facility] Ependymoma of spinal cord Active Condition [facility] Hearing Loss ([facility] 15101898) Active Condition [facility] History of Deep Vein Thrombosis ([facility] 113350718) Active Condition [facility] History of pressure injury Active Condition [facility] HTN - Hypertension ([facility]CT 36453669) Active Condition [facility] Hyperlipidemia ([facility] 34755147) Active Condition [facility] Hyponatremia Active Condition [facility] Long-term current use of anticoagulant Active Condition [facility] Neurogenic Bladder ([facility] 865751629) Active Condition [facility] Neurogenic bowel Active Condition [facility] Osteoporosis ([facility] 21796152) Active Condition [facility] Paraplegia Active Condition [facility] Spasticity Active Condition [facility] Suprapubic urinary catheter in situ Active Condition [facility] Supraventricular tachycardia Active Condition [facility] Tinnitus ([facility] 76084236) Active Condition [facility] Vitamin D Deficiency ([facility] 2907772) Active Condition [facility] Diagnosis: ICD-10-CM Z73.6 Limitation of activities due to disability Active Diagnosis [facility] Diagnosis: ICD-10-CM G82.20 Paraplegia, unspecified Active Diagnosis [facility] Diagnosis: ICD-10-CM Z43.3 Encounter for attention to colostomy Active Diagnosis [facility] Diagnosis: ICD-10-CM Z71.3 Dietary counseling and surveillance Active Diagnosis [facility] Diagnosis: ICD-10-CM F32.A Depression, unspecified Active Diagnosis [facility] Medications Combined list of outpatient medications from Department of Defense and [facility] Affairs facilities.Medications provided include 1) [...] ed by: PIPO BARRETT Document ed at: [facility] ORAL ACTIVE Jagdish BARRETT 2022 [facility] AMLODIPINE BESYLATE (AMLODIPINE BESYLATE), 5 MG, TABLET, ORAL, [employer] 1000 ea. BOTTLE Active [id number] 2023 90 Pharmac y Data Transac tion Service Facilit y AMLODIPINE BESYLATE (amlodipine besylate), 5 MG, TABLET, ORAL, [employer], 1000 ea. BOTTLE Active [id number] 2023 90 Pharmac y Data Transac tion Service Facilit y AMLODIPINE BESYLATE 2.5MG TAB AMLODIPI NE BESYLATE 2.5MG TAB Non-VA TAKE TWO TABLETS BY MOUTH EVERY MORNING Feb 05, 2023 Non-VA Document ed by: PIPO BARRETT Document ed at: [facility] ORAL ACTIVE Jagdish BARRETT 2022 [facility] AMOX TR-POTASSIU M CLAVULANATE (AMOXICILLI N/POTASSIUM CLAV), 875-125 MG, TABLET, ORAL, [employer] [place], 20 ea. BOTTLE Active [id number] 2022 14 Pharmac y Data Transac tion Service Facilit y AMOXICILLIN -CLAVULANAT E POTASS (amoxicilli n/potassium clavulanate ), 875-125 MG, TABLET, ORAL, [employer] [place],, 20 ea. BOTTLE Active [id number] 2023 20 Pharmac y Data Transac tion Service Facilit y AMOXICILLIN -CLAVULANAT E POTASS (amoxicilli n/potassium clavulanate ), 875-125 MG, TABLET, ORAL, [employer] [place],, 20 ea. BOTTLE Active [id number] 2023 56 Pharmac y Data Transac tion Service Facilit y ARIPIPRAZOL E (aripiprazo le), 2 MG, TABLET, ORAL, [employer], 500 ea. BOTTLE Active [id number] 2023 180 Pharmac y Data Transac tion Service Facilit y ARIPIPRAZOL E (aripiprazo le), 2 MG, TABLET, ORAL, [employer], 500 ea. BOTTLE Active [id number] 2023 180 Pharmac y Data Transac tion Service Facilit y ARIPIPRAZOL E TAB ARIPIPRA ZOLE TAB Non-VA TAKE 2MG BY MOUTH TWICE A DAY May 29, 2022 Non-VA Document ed by: SHANTAL HANSON Document ed at: [facility] ORAL ACTIVE Jey HANSON 2021 [facility] ATIVAN (LORAZEPAM) , 0.5 MG, TABLET, ORAL, VALEANT, 100 ea. BOTTLE Active [id number] 2023 120 Pharmac y Data Transac [...] BIOCON PHARMA I, 1000 ea. BOTTLE Active [id number] 2023 90 Pharmac y Data Transac tion Service Facilit y ATORVASTATI N CALCIUM (atorvastat in calcium), 40 MG, TABLET, ORAL, [employer] PHARMA I, 1000 ea. BOTTLE Active [id number] 2023 90 Pharmac y Data Transac tion Service Facilit y BACLOFEN (baclofen), 20 MG, TABLET, ORAL, [employer] 1000 ea. BOTTLE Active [id number] 2023 540 Pharmac y Data Transac tion Service Facilit y BACLOFEN (baclofen), 20 MG, TABLET, ORAL, [employer] 1000 ea. BOTTLE Active [id number] 2023 540 Pharmac y Data Transac tion Service Facilit y BACLOFEN 20MG TAB BACLOFEN 20MG TAB Non-VA TAKE TWO TABLETS BY MOUTH THREE TIMES A DAY Feb 05, 2023 Non-VA Document ed by: PIPO BARRETT Document ed at: [facility] ORAL ACTIVE Jagdish BARRETT 2022 [facility] BUPROPION HCL 150MG 12HR TAB,SA BUPROPIO N HCL 150MG 12HR TAB,SA Non-VA TAKE ONE TABLET BY MOUTH TWICE A DAY May 29, 2022 Non-VA Document ed by: SHANTAL HANSON Document ed at: [facility] ORAL ACTIVE Jey HANSON 2021 [facility] BUPROPION HCL SR (bupropion HCl), 150 MG, TAB SR 12H, ORAL, [employer], 60 ea. BOTTLE Active [id number] 2023 180 Pharmac y Data Transac tion Service Facilit y BUPROPION HCL SR (bupropion HCl), 150 MG, TAB SR 12H, ORAL, [employer], 60 ea. BOTTLE Active [id number] 2023 180 Pharmac y Data Transac tion Service Facilit y CEPHALEXIN 250MG CAP CEPHALEX IN 250MG CAP Non-VA TAKE 1 CAPSULE BY MOUTH EVERY DAY May 29, 2022 Non-VA Document ed by: SHANATL HANSON Document ed at: [facility] ORAL [...] ORAL, [employer], 50 ea. BOTTLE Active [id number] 2023 70 Pharmac y Data Transac tion Service Facilit y DONEPEZIL HCL (DONEPEZIL HCL), 5 MG, TABLET, ORAL, [employer] 1000 ea. BOTTLE Active [id number] 2023 90 Pharmac y Data Transac tion Service Facilit y DONEPEZIL HCL (DONEPEZIL HCL), 5 MG, TABLET, ORAL, [employer] 1000 ea. BOTTLE Cancele d [id number] : 2023 0 Pharmac y Data Transac tion Service Facilit y DONEPEZIL HCL (DONEPEZIL HCL), 5 MG, TABLET, ORAL, [employer] 1000 ea. BOTTLE Active [id number] 2023 90 Pharmac y Data Transac tion Service Facilit y DONEPEZIL HCL 10MG TAB DONEPEZI L HCL 10MG TAB Non-VA TAKE ONE-HALF TABLET BY MOUTH EVERY DAY May 29, 2022 Non-VA Document ed by: SHANTAL HANSON Document ed at: [facility] ORAL ACTIVE Jey HANSON 2021 [facility] DULOXETINE HCL (duloxetine HCl), 60 MG, CAPSULE DR, ORAL, [employer] 1000 ea. BOTTLE Active [id number] 2023 180 Pharmac y Data Transac tion Service Facilit y DULOXETINE HCL (duloxetine HCl), 60 MG, CAPSULE DR, ORAL, [employer] 1000 ea. BOTTLE Active [id number] 2023 180 Pharmac y Data Transac tion Service Facilit y DULOXETINE HCL 30MG CAP,EC DULOXETI NE HCL 30MG CAP,EC Non-VA TAKE 2 CAPSULES BY MOUTH TWICE A DAY May 29, 2022 Non-VA Document ed by: SHANTAL HANSON Document ed at: [facility] ORAL ACTIVE Jey HANSON 2021 [facility] FAMOTIDINE (famotidine ), 20 MG, TABLET, ORAL, [employer] 1000 ea. BOTTLE Active [id number] 2023 180 Pharmac y Data Transac tion Service Facilit y FAMOTIDINE 20MG TAB FAMOTIDI NE 20MG TAB Non-VA TAKE ONE TABLET BY MOUTH TWICE A DAY May 29, 2022 Non-VA Document ed by: SHANTAL HANSON Document ed at: [facility] ORAL ACTIVE Jey HANSON 2021 [facility] FUROSEMIDE (furosemide ), 40 MG, TABLET, ORAL, [employer], 1000 ea. BOTTLE Active [id number] 2023 180 Pharmac y Data Transac tion Service Facilit y FUROSEMIDE 40MG TAB FUROSEMI DE 40MG TAB Non-VA TAKE ONE TABLET BY MOUTH TWICE A DAY May 29, 2022 Non-VA Document ed by: SHANTAL HANSON Document ed at: [facility] ORAL ACTIVE Jey HANSON 2021 [facility] GABAPENTIN (gabapentin ), 400 MG, CAPSULE, ORAL, [employer] 500 ea. BOTTLE Active [id number] 2023 270 Pharmac y Data Transac tion Service Facilit y GABAPENTIN (gabapentin ), 400 MG, CAPSULE, ORAL, [employer], 500 ea. BOTTLE Active [id number] 2023 270 Pharmac y Data Transac tion Service Facilit y GABAPENTIN (gabapentin ), 400 MG, CAPSULE, ORAL, [employer], 500 ea. BOTTLE Cancele d [id number] : 2023 0 Pharmac y Data Transac [...] ORAL, [employer]ARM, 500 ea. BOTTLE Active [id number] 2023 120 Pharmac y Data Transac tion Service Facilit y LORAZEPAM (lorazepam) , 0.5 MG, TABLET, ORAL, [employer]AR[employer], 1000 ea. BOTTLE Active [id number] 2023 120 Pharmac y Data Transac tion Service Facilit y LORAZEPAM (lorazepam) , 0.5 MG, TABLET, ORAL, [employer]AR[employer], 1000 ea. BOTTLE Active [id number] 2023 120 Pharmac y Data Transac tion Service Facilit y LORAZEPAM (lorazepam) , 0.5 MG, TABLET, ORAL, [employer], 1000 ea. BOTTLE Active [id number] 2023 120 Pharmac y Data Transac tion Service Facilit y LORAZEPAM (lorazepam) , 0.5 MG, TABLET, ORAL, [employer], 500 ea. BOTTLE Active [id number] 2023 120 Pharmac y Data Transac tion Service Facilit y LORAZEPAM 0.5MG TAB LORAZEPA M 0.5MG TAB Non-VA TAKE ONE TABLET BY MOUTH THREE TIMES A DAY AND TAKE TWO TABLETS BY MOUTH AT BEDTIME Feb 05, 2023 Non-VA Document ed by: PIPO BARRETT Document ed at: [facility] ORAL ACTIVE Jagdish BARRETT 2022 [facility] [employer] MIL[place] [...] ed by: PIPO BARRETT Document ed at: [facility] NASAL ACTIVE Jagdish BARRETT 2022 [facility] OXYCODONE HCL (OXYCODONE HCL), 10 MG, TABLET, ORAL, [employer] 100 ea. BOTTLE Active [id number] 2023 120 Pharmac y Data Transac tion Service Facilit y OXYCODONE HCL (OXYCODONE HCL), 10 MG, TABLET, ORAL, [employer] 100 ea. BOTTLE Active [id number] 2023 120 Pharmac y Data Transac tion Service Facilit y OXYCODONE HCL (OXYCODONE HCL), 10 MG, TABLET, ORAL, [employer] 100 ea. BOTTLE Active [id number] 2023 120 Pharmac y Data Transac tion Service Facilit y OXYCODONE HCL (OXYCODONE HCL), 10 MG, TABLET, ORAL, [employer] 100 ea. BOTTLE Active [id number] 2023 120 Pharmac y Data Transac tion Service Facilit y OXYCODONE HCL (OXYCODONE HCL), 10 MG, TABLET, ORAL, [employer] 100 ea. BOTTLE Active [id number] 2023 120 Pharmac y Data Transac tion Service Facilit y OXYCODONE HCL (OXYCODONE HCL), 10 MG, TABLET, ORAL, [employer] 100 ea. BOTTLE Active [id number] 2023 120 Pharmac y Data Transac tion Service Facilit y OXYCODONE HCL (OXYCODONE HCL), 10 MG, TABLET, ORAL, [employer] 100 ea. BOTTLE Active [id number] 2022 120 Pharmac y Data Transac tion Service Facilit y OXYCODONE HCL 5MG TAB OXYCODON E HCL 5MG TAB Non-VA TAKE TWO TABLETS BY MOUTH FOUR TIMES A DAY Feb 05, 2023 Non-VA Document ed by: PIPO BARRETT Document ed at[facility] Jagdish BARRETT 2022 [facility] POTASSIUM CHLORIDE (potassium chloride), 10 MEQ, TAB ER PRT, ORAL, [employer]ACE, 100 ea. BOTTLE Active [id number] 2023 180 Pharmac y Data Transac tion Service Facilit y POTASSIUM CHLORIDE (potassium chloride), 10 MEQ, TAB ER PRT, ORAL, [employer], 100 ea. BOTTLE Active [id number] 2023 180 Pharmac y Data Transac tion Service Facilit y POTASSIUM CHLORIDE (potassium chloride), 20 MEQ, TAB ER PRT, ORAL, [employer], 100 ea. BOTTLE Active [id number] 2023 90 Pharmac y Data Transac [...] WHITLOCK&N/UNI LUIS, 30 g TUBE Cancele d [id number] : 2023 0 Pharmac y Data Transac tion Service Facilit y WARFARIN SODIUM (warfarin sodium), 5 MG, TABLET, ORAL, [employer] 1000 ea. BOTTLE Cancele d [id number] : 2022 0 Pharmac y Data Transac tion Service Facilit y WARFARIN SODIUM (WARFARIN SODIUM), 5 MG, TABLET, ORAL, [employer] [place], 1000 ea. BOTTLE Active [id number] 2023 25 Pharmac y Data Transac tion Service Facilit y WARFARIN SODIUM (WARFARIN SODIUM), 5 MG, TABLET, ORAL, [employer] [place], 1000 ea. BOTTLE Active [id number] 2023 12 Pharmac y Data Transac tion Service Facilit y WARFARIN SODIUM (WARFARIN SODIUM), 5 MG, TABLET, ORAL, [employer] [place], 1000 ea. BOTTLE Active [id number] 2023 40 Pharmac y Data Transac tion Service Facilit y WARFARIN SODIUM (WARFARIN SODIUM), 5 MG, TABLET, ORAL, [employer] [place], 1000 ea. BOTTLE Cancele d [id number] : 2022 0 Pharmac y Data Transac tion Service Facilit y WARFARIN SODIUM (warfarin sodium), 7.5 MG, TABLET, ORAL, [employer] [place], 100 ea. BOTTLE Active [id number] 2023 51 Pharmac y Data Transac tion Service Facilit y WARFARIN SODIUM (warfarin sodium), 7.5 MG, TABLET, ORAL, [employer] [place], 100 ea. BOTTLE Active [id number] 2023 78 Pharmac y Data Transac tion Service Facilit y WARFARIN TAB WARFARIN TAB Non-VA TAKE 5MG BY MOUTH SUN/THUR S AND TAKE 7.5MG BY MOUTH ALL OTHER DAYS Feb 05, 2023 Non-VA Document ed by: PIPO BARRETT Document ed at: [facility] ORAL ACTIVE Jagdish BARRETT 2022 [facility] Allergies, Adverse Reactions, Alerts Combined list of allergies from 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 It does not include entries that were removed or entered in error. Substance Category Reaction Severity Reaction type Status Date Reported Comments Source AMOXICILLIN Propensity to adverse reactions to drug (finding) Eruption active 2 [facility] METOLAZONE Propensity to adverse reactions to drug (finding) Itching active 2 [facility] MORPHINE Propensity to adverse reactions to drug (finding) Delirium active 2 [facility] PIPERACILLIN Propensity to adverse reactions to drug (finding) Eruption active 2 [facility] SULFA DRUGS Propensity to adverse reactions to drug (finding) Eruption active 2 [facility] TAZOBACTAM SODIUM Propensity to adverse reactions to drug (finding) Eruption active 2 [facility] Immunizations Combined list of available immunizations from the 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 Immunization Series Date Given Administered By Site Reaction Lot Number CVX Code Drug Die Polisher Status Comments Source COVID-19 ([employer]), MRNA, LNP-S, BIVALENT, PF, 30 MCG/0.3 ML DOSE 2021 300 complet ed [facility] INFLUENZA, ADJUVANTED, QUADRIVALENT, PF 2021 205 complet ed [facility] INFLUENZA, UNSPECIFIED FORMULATION 2021 88 complet ed 's recall [facility] TD (ADULT), 5 LF TETANUS TOXOID, PRESERVATIVE FREE, ADSORBED 2021 113 complet ed [facility] INFLUENZA, ADJUVANTED, QUADRIVALENT, PF 2020 205 complet ed [facility] INFLUENZA, UNSPECIFIED FORMULATION 2020 88 complet ed [facility] COVID-19 ([employer]), MRNA, LNP-S, PF, 30 MCG/0.3 ML DOSE 3 2020 208 complet ed [facility] COVID-19 ([employer]), MRNA, LNP-S, PF, 30 MCG/0.3 ML DOSE 2 2020 208 complet ed [facility] COVID-19 ([employer]), MRNA, LNP-S, PF, 30 MCG/0.3 ML DOSE 1 2020 208 complet ed [facility] INFLUENZA, ADJUVANTED, QUADRIVALENT, PF 2019 205 complet ed [facility] INFLUENZA, ADJUVANTED, TRIVALENT, PF 2018 168 complet ed [facility] INFLUENZA, ADJUVANTED, TRIVALENT, PF 2017 168 complet ed [facility] INFLUENZA, HIGH-DOSE, TRIVALENT, PF 2016 135 complet ed [facility] INFLUENZA, ADJUVANTED, TRIVALENT, PF 2016 168 complet ed [facility] INFLUENZA, HIGH-DOSE, TRIVALENT, PF 2015 135 complet ed [facility] ZOSTER LIVE 2015 121 complet ed [facility] PNEUMOCOCCAL CONJUGATE PCV 13 2014 133 complet ed [facility] INFLUENZA, HIGH-DOSE, TRIVALENT, PF 2014 135 complet ed [facility] INFLUENZA, HIGH-DOSE, TRIVALENT, PF 2013 135 complet ed [facility] INFLUENZA, UNSPECIFIED FORMULATION 2013 88 complet ed [facility] INFLUENZA, SPLIT VIRUS, TRIVALENT, PRESERVATIVE 2012 141 complet ed [facility] ZOSTER LIVE 2012 121 complet ed [facility] INFLUENZA, SPLIT VIRUS, TRIVALENT, PRESERVATIVE 2011 141 complet ed [facility] INFLUENZA, SPLIT VIRUS, TRIVALENT, PF 2010 140 complet ed [facility] PNEUMOCOCCAL POLYSACCHARID E PPV23 2010 33 complet ed [facility] TDAP 2010 115 complet ed [facility] INFLUENZA, SPLIT VIRUS, TRIVALENT, PRESERVATIVE 2009 141 complet [facility] NOVEL INFLUENZA-H1N 1-09, ALL FORMULATIONS 2009 128 complet ed [facility] INFLUENZA, SPLIT VIRUS, TRIVALENT, PF 2008 140 complet ed [facility] PNEUMOCOCCAL POLYSACCHARID E PPV23 2008 33 complet ed [facility] INFLUENZA, SPLIT VIRUS, TRIVALENT, PRESERVATIVE 2008 141 complet ed [facility] INFLUENZA, SPLIT VIRUS, TRIVALENT, PRESERVATIVE 2007 141 complet ed [facility] INFLUENZA, SPLIT VIRUS, TRIVALENT, PRESERVATIVE 2005 141 complet ed [facility] INFLUENZA, SPLIT VIRUS, TRIVALENT, PRESERVATIVE 2004 141 complet ed [facility] PNEUMOCOCCAL POLYSACCHARID E PPV23 2004 33 complet ed [facility] INFLUENZA, SPLIT VIRUS, TRIVALENT, PRESERVATIVE 2003 141 complet ed [facility] Results Combined list of recent chemistry, hematology [...] 2023 03:10 PM Reporting Lab: [facility] [address] Performing Lab: [facility] [address] [facility] CYSTATIN C WITH EGFR CYSTATIN C AND GLOMERULAR FILTRATION RATE BY CYSTATIN C-BASED FORMULA PANEL - SERUM OR PLASMA 53 60 02/13 L Specimen Type: PLASMA No comment entered. Ordering Provider: ANKUSH BOWMAN Report Released Date/Time: Feb 05, 2023 03:10 PM Reporting Lab: [facility] [address] Performing Lab: [facility] [address] [facility] BASIC METABOLI C PANEL+MG CREATININE [MASS/VOLU ME] IN SERUM OR PLASMA 0.7 mg/dL 0.7 - 1.2 02/13 Specimen Type: PLASMA No comment entered. Ordering Provider: ANKUSH BOWMAN Report Released Date/Time: Feb 05, 2023 03:10 PM Reporting Lab: [facility] [address] Performing Lab: [facility] [address] [facility] BASIC METABOLI C PANEL+MG UREA NITROGEN [MASS/VOLU ME] IN SERUM OR PLASMA 15 mg/dL 8 - 02/13 Specimen Type: PLASMA No comment entered. Ordering Provider: ANKUSH BOWMAN Report Released Date/Time: Feb 05, 2023 03:10 PM Reporting Lab: [facility] [address] Performing Lab: [facility] [address] [facility] BASIC METABOLI C PANEL+MG GLUCOSE [MASS/VOLU ME] IN SERUM OR PLASMA 140 mg/dL 70 - 100 02/13 H Specimen Type: PLASMA No comment entered. Ordering Provider: ANKUSH BOWMAN Report Released Date/Time: Feb 05, 2023 03:10 PM Reporting Lab: [facility] [address] Performing Lab: [facility] [address] [facility] BASIC METABOLI C PANEL+MG SODIUM [MOLES/VOL UME] IN SERUM OR PLASMA 135 mmol/L 136 - 145 02/13 L Specimen Type: PLASMA No comment entered. Ordering Provider: ANKUSH BOWMAN Report Released Date/Time: Feb 05, 2023 03:10 PM Reporting Lab: [facility] [address] Performing Lab: [facility] [address] [facility] BASIC METABOLI C PANEL+MG POTASSIUM [MOLES/VOL UME] IN SERUM OR PLASMA 4.0 mmol/L 3.5 - 5.1 02/13 Specimen Type: PLASMA No comment entered. Ordering Provider: ANKUSH BOWMAN Report Released Date/Time: Feb 05, 2023 03:10 PM Reporting Lab: [facility] [address] Performing Lab: [facility] [address] [facility] BASIC METABOLI C PANEL+MG CHLORIDE [MOLES/VOL UME] IN SERUM OR PLASMA 99 mmol/L 98 - 107 02/13 Specimen Type: PLASMA No comment entered. Ordering Provider: ANKUSH BOWMAN Report Released Date/Time: Feb 05, 2023 03:10 PM Reporting Lab: [facility] [address] Performing Lab: [facility] [address] [place] BASIC METABOLI C PANEL+MG CARBON DIOXIDE, TOTAL [MOLES/VOL UME] IN SERUM OR PLASMA 29 mmol/L 22 - 29 02/13 Specimen Type: PLASMA No comment entered. Ordering Provider: ANKUSH BOWMAN Report Released Date/Time: Feb 05, 2023 03:10 PM Reporting Lab: [facility] [address] Performing Lab: [facility] [address] [facility] BASIC METABOLI C PANEL+MG CALCIUM [MASS/VOLU ME] IN SERUM OR PLASMA 9.2 mg/dL 8.4 - 10.2 02/13 Specimen Type: PLASMA No comment entered. Ordering Provider: ANKUSH BOWMAN Report Released Date/Time: Feb 05, 2023 03:10 PM Reporting Lab: [facility] [address] Performing Lab: [facility] [address] [facility] BASIC METABOLI C PANEL+MG MAGNESIUM [MASS/VOLU ME] IN SERUM OR PLASMA 2.0 mg/dL 1.6 - 2.6 02/13 Specimen Type: PLASMA No comment entered. Ordering Provider: ANKUSH BOWMAN Report Released Date/Time: Feb 05, 2023 03:10 PM Reporting Lab: [facility] [address] Performing Lab: [facility] [address] [facility] BASIC METABOLI C PANEL+MG ANION GAP IN SERUM OR PLASMA 7 mmol/L 5 - 15 02/13 Specimen Type: PLASMA No comment entered. Ordering Provider: ANKUSH BOWMAN Report Released Date/Time: Feb 05, 2023 03:10 PM Reporting Lab: [facility] [address] Performing Lab: [facility] [address] [facility] BASIC METABOLI C PANEL+MG GLOMERULAR FILTRATION RATE/1.73 SQ M.PREDICTE D [VOLUME RATE/AREA] IN SERUM, PLASMA OR BLOOD BY CREATININE -BASED FORMULA (CKD-EPI) >90 60 02/13 Specimen Type: PLASMA No comment entered. Ordering Provider: ANKUSH BOWMAN Report Released Date/Time: Feb 05, 2023 03:10 PM Reporting Lab: [facility] [address] Performing Lab: [facility] [address] [facility] URINALYS IS COLOR OF URINE YELLOW 10/08 Specimen Type: URINE No comment entered. Ordering Provider: ANKUSH BOWMAN Report Released Date/Time: Sep 24, 2022 01:55 PM Reporting Lab: [facility] [address] Performing Lab: [facility] [address] [facility] URINALYS IS SPECIFIC GRAVITY OF URINE 1.023 1.003 - 1.035 10/08 Specimen Type: URINE No comment entered. Ordering Provider: ANKUSH BOWMAN Report Released Date/Time: Sep 24, 2022 01:55 PM Reporting Lab: [facility] [address] Performing Lab: [facility] [address] [facility] URINALYS IS BILIRUBIN. TOTAL [PRESENCE] IN URINE BY TEST STRIP NEGATIVE 10/08 Specimen Type: URINE No comment entered. Ordering Provider: ANKUSH BOWMAN Report Released Date/Time: Sep 24, 2022 01:55 PM Reporting Lab: [facility] [address] Performing Lab: [facility] [address] [place] [facility] URINALYS IS KETONES [MASS/VOLU ME] IN URINE BY TEST STRIP NEGATIVE 10/08 Specimen Type: URINE No comment entered. Ordering Provider: ANKUSH BOWMAN Report Released Date/Time: Sep 24, 2022 01:55 PM Reporting Lab: [facility] [id number] Performing Lab: [facility] [phone] [place] [facility] URIN[facility] GLUCOSE [MASS/VOLU ME] IN URINE BY TEST STRIP NEGATIVE mg/dL <30 - 30 10/08 Specimen Type: URINE No comment entered. Ordering Provider: ANKUSH BOWMAN Report Released Date/Time: Sep 24, 2022 01:55 PM Reporting Lab: [facility] [phone] Performing Lab: [facility] [phone] [place] [facility] UR[facility] IS PROTEIN [MASS/VOLU ME] IN URINE BY TEST STRIP 30 mg/dL <20 - 20 10/08 Specimen Type: URINE No comment entered. Ordering Provider: ANKUSH BOWMAN Report Released Date/Time: Sep 24, 2022 01:55 PM Reporting Lab: [facility] [id number] Performing Lab: [facility] [id number] [place] [facility] PH OF URINE BY TEST STRIP 7.5 5.0 - 8.0 10/08 Specimen Type: URINE No comment entered. Ordering Provider: ANKUSH BOWMAN Report Released Date/Time: Sep 24, 2022 01:55 PM Reporting Lab: [facility] [address] Performing Lab: [facility] [address] [facility] URINALYS IS LEUKOCYTES [#/AREA] IN URINE SEDIMENT BY MICROSCOPY HIGH POWER FIELD >180/[HP F] 0 - 7 10/08 H Specimen Type: URINE No comment entered. Ordering Provider: ANKUSH BOWMAN Report Released Date/Time: Sep 24, 2022 01:55 PM Reporting Lab: [facility] [address] Performing Lab: [facility] [address] [facility] URINALYS IS BACTERIA [PRESENCE] IN URINE SEDIMENT BY LIGHT MICROSCOPY MANY 10/08 Specimen Type: URINE No comment entered. Ordering Provider: ANKUSH BOWMAN Report Released Date/Time: Sep 24, 2022 01:55 PM Reporting Lab: [facility] [address] Performing Lab: [facility] [address] [facility] URINALYS IS ERYTHROCYT ES [#/AREA] IN URINE SEDIMENT BY MICROSCOPY HIGH POWER FIELD 33 /[HPF] 0 - 3 10/08 H Specimen Type: URINE No comment entered. Ordering Provider: ANKUSH BOWMAN Report Released Date/Time: Sep 24, 2022 01:55 PM Reporting Lab: [facility] [address] Performing Lab: [facility] [address] [facility] URINALYS IS APPEARANCE OF URINE EX.TURBI D 10/08 Specimen Type: URINE No comment entered. Ordering Provider: ANKUSH BOWMAN Report Released Date/Time: Sep 24, 2022 01:55 PM Reporting Lab: [facility] [address] Performing Lab: [facility] [address] [facility] URINALYS IS EPITHELIAL CELLS.SQUA MOUS [#/AREA] IN URINE SEDIMENT BY MICROSCOPY HIGH POWER FIELD 1 /[HPF] 10/08 Specimen Type: URINE No comment entered. Ordering Provider: ANKUSH BOWMAN Report Released Date/Time: Sep 24, 2022 01:55 PM Reporting Lab: [facility] [address] Performing Lab: [facility] [address] [facility] URINALYS IS HEMOGLOBIN [PRESENCE] IN URINE BY TEST STRIP 1+ 10/08 Specimen Type: URINE No comment entered. Ordering Provider: ANKUSH BOWMAN Report Released Date/Time: Sep 24, 2022 01:55 PM Reporting Lab: [facility] [address] Performing Lab: [facility] [address] [facility] URINALYS IS NITRITE [PRESENCE] IN URINE BY TEST STRIP NEGATIVE 10/08 Specimen Type: URINE No comment entered. Ordering Provider: ANKUSH BOWMAN Report Released Date/Time: Sep 24, 2022 01:55 PM Reporting Lab: [facility] [address] Performing Lab: [facility] [address] [facility] URINALYS IS LEUKOCYTE CLUMPS [#/VOLUME] IN URINE BY AUTOMATED COUNT PRESENT 10/08 Specimen Type: URINE No comment entered. Ordering Provider: ANKUSH BOWMAN Report Released Date/Time: Sep 24, 2022 01:55 PM Reporting Lab: [facility] [address] Performing Lab: [facility] [address] [facility] URINALYS IS LEUKOCYTE ESTERASE [PRESENCE] IN URINE BY TEST STRIP 500 10/08 Specimen Type: URINE No comment entered. Ordering Provider: ANKUSH BOWMAN Report Released Date/Time: Sep 24, 2022 01:55 PM Reporting Lab: [facility] [address] Performing Lab: [facility] [address] [facility] ALBUMIN ALBUMIN [MASS/VOLU ME] IN SERUM OR PLASMA 4.2 g/dL 3.5 - 5.2 10/08 Specimen Type: PLASMA No comment entered. Ordering Provider: ANKUSH BOWMAN Report Released Date/Time: Sep 24, 2022 01:55 PM Reporting Lab: [facility] [address] Performing Lab: [facility] [address] [facility] PRE-ALBU MIN PREALBUMIN [MASS/VOLU ME] IN SERUM OR PLASMA 28.4 mg/dL 14.0 - 45.0 10/08 Specimen Type: SERUM No comment entered. Ordering Provider: ANKUSH BOWMAN Report Released Date/Time: Sep 24, 2022 01:55 PM Reporting Lab: [facility] [address] Performing Lab: [facility] [address] [facility] CBC & DIFF LEUKOCYTES [#/VOLUME] IN BLOOD BY AUTOMATED COUNT 7.32 10*3/uL 4.0 - 11.0 10/08 Specimen Type: BLOOD Comment: Automated Differentia l Performed Ordering Provider: ANKUSH BOWMAN Report Released Date/Time: Sep 24, 2022 01:55 PM Reporting Lab: [facility] [address] Performing Lab: [facility] [address] [facility] CBC & DIFF ERYTHROCYT ES [#/VOLUME] IN BLOOD BY AUTOMATED COUNT 4.80 10*6/uL 4.6 - 6.2 10/08 Specimen Type: BLOOD Comment: Automated Differentia l Performed Ordering Provider: ANKUSH BOWMAN Report Released Date/Time: Sep 24, 2022 01:55 PM Reporting Lab: [facility] [address] Performing Lab: [facility] [address] [facility] CBC & DIFF HEMOGLOBIN [MASS/VOLU ME] IN BLOOD 14.7 g/dL 13.5 - 17.9 10/08 Specimen Type: BLOOD Comment: Automated Differentia l Performed Ordering Provider: ANKUSH BOWMAN Report Released Date/Time: Sep 24, 2022 01:55 PM Reporting Lab: [facility] [address] Performing Lab: [facility] [address] [facility] CBC & DIFF HEMATOCRIT [VOLUME FRACTION] OF BLOOD BY AUTOMATED COUNT 44.2 41 - 54 10/08 Specimen Type: BLOOD Comment: Automated Differentia l Performed Ordering Provider: ANKUSH BOWMAN Report Released Date/Time: Sep 24, 2022 01:55 PM Reporting Lab: [facility] [address] Performing Lab: [facility] [address] [facility] CBC & DIFF MCV [ENTITIC VOLUME] BY AUTOMATED COUNT 92.1 fL 80 - 100 10/08 Specimen Type: BLOOD Comment: Automated Differentia l Performed Ordering Provider: ANKUSH BOWMAN Report Released Date/Time: Sep 24, 2022 01:55 PM Reporting Lab: [facility] [address] Performing Lab: [facility] [address] [facility] CBC & DIFF MCH [ENTITIC MASS] BY AUTOMATED COUNT 30.6 pg 27 - 33 10/08 Specimen Type: BLOOD Comment: Automated Differentia l Performed Ordering Provider: ANKUSH BOWMAN Report Released Date/Time: Sep 24, 2022 01:55 PM Reporting Lab: [facility] [address] Performing Lab: [facility] [address] [facility] CBC & DIFF MCHC [MASS/VOLU ME] BY AUTOMATED COUNT 33.3 g/dL 32.0 - 37.5 10/08 Specimen Type: BLOOD Comment: Automated Differentia l Performed Ordering Provider: ANKUSH BOWMAN Report Released Date/Time: Sep 24, 2022 01:55 PM Reporting Lab: [facility] [address] Performing Lab: [facility] [address] [facility] CBC & DIFF PLATELETS [#/VOLUME] IN BLOOD BY AUTOMATED COUNT 144 10*3/uL 150 - 400 10/08 L Specimen Type: BLOOD Comment: Automated Differentia l Performed Ordering Provider: ANKUSH BOWMAN Report Released Date/Time: Sep 24, 2022 01:55 PM Reporting Lab: [facility] [address] Performing Lab: [facility] [address] [facility] CBC & DIFF PLATELET MEAN VOLUME [ENTITIC VOLUME] IN BLOOD BY AUTOMATED COUNT 10.8 fL 7.4 - 10.4 10/08 H Specimen Type: BLOOD Comment: Automated Differentia l Performed Ordering Provider: ANKUSH BOWMAN Report Released Date/Time: Sep 24, 2022 01:55 PM Reporting Lab: [facility] [address] Performing Lab: [facility] [address] [facility] CBC & DIFF NEUTROPHIL S/100 LEUKOCYTES IN BLOOD BY MANUAL COUNT 55.5 10/08 Specimen Type: BLOOD Comment: Automated Differentia l Performed Ordering Provider: ANKUSH BOWMAN Report Released Date/Time: Sep 24, 2022 01:55 PM Reporting Lab: [facility] [address] Performing Lab: [facility] [address] [facility] CBC & DIFF LYMPHOCYTE S/100 LEUKOCYTES IN BLOOD BY MANUAL COUNT 31.4 10/08 Specimen Type: BLOOD Comment: Automated Differentia l Performed Ordering Provider: ANKUSH BOWMAN Report Released Date/Time: Sep 24, 2022 01:55 PM Reporting Lab: [facility] [address] Performing Lab: [facility] [address] [facility] CBC & DIFF MONOCYTES/ 100 LEUKOCYTES IN BLOOD BY AUTOMATED COUNT 10.2 10/08 Specimen Type: BLOOD Comment: Automated Differentia l Performed Ordering Provider: ANKUSH BOWMAN Report Released Date/Time: Sep 24, 2022 01:55 PM Reporting Lab: [facility] [address] Performing Lab: [facility] [address] [facility] CBC & DIFF EOSINOPHIL S/100 LEUKOCYTES IN BLOOD BY AUTOMATED COUNT 2.2 10/08 Specimen Type: BLOOD Comment: Automated Differentia l Performed Ordering Provider: ANKUSH BOWMAN Report Released Date/Time: Sep 24, 2022 01:55 PM Reporting Lab: [facility] [address] Performing Lab: [facility] [address] [facility] CBC & DIFF BASOPHILS/ 100 LEUKOCYTES IN BLOOD BY MANUAL COUNT 0.4 10/08 Specimen Type: BLOOD Comment: Automated Differentia l Performed Ordering Provider: ANKUSH BOWMAN Report Released Date/Time: Sep 24, 2022 01:55 PM Reporting Lab: [facility] [address] Performing Lab: [facility] [address] [facility] CBC & DIFF ERYTHROCYT E DISTRIBUTI ON WIDTH [RATIO] BY AUTOMATED COUNT 15.9 11.5 - 14.5 10/08 H Specimen Type: BLOOD Comment: Automated Differentia l Performed Ordering Provider: ANKUSH BOWMAN Report Released Date/Time: Sep 24, 2022 01:55 PM Reporting Lab: [facility] [address] Performing Lab: [facility] [address] [facility] CBC & DIFF LYMPHOCYTE S [#/VOLUME] IN BLOOD BY AUTOMATED COUNT 2.30 10*3/uL 1.0 - 4.0 10/08 Specimen Type: BLOOD Comment: Automated Differentia l Performed Ordering Provider: ANKUSH BOWMAN Report Released Date/Time: Sep 24, 2022 01:55 PM Reporting Lab: [facility] [address] Performing Lab: [facility] [address] [facility] CBC & DIFF MONOCYTES [#/VOLUME] IN BLOOD BY AUTOMATED COUNT 0.75 10*3/uL 0.1 - 1.0 10/08 Specimen Type: BLOOD Comment: Automated Differentia l Performed Ordering Provider: ANKUSH BOWMAN Report Released Date/Time: Sep 24, 2022 01:55 PM Reporting Lab: [facility] [address] Performing Lab: [facility] [address] [facility] CBC & DIFF NEUTROPHIL S [#/VOLUME] IN BLOOD BY AUTOMATED COUNT 4.06 10*3/uL 2.0 - 7.7 10/08 Specimen Type: BLOOD Comment: Automated Differentia l Performed Ordering Provider: ANKUSH BOWMAN Report Released Date/Time: Sep 24, 2022 01:55 PM Reporting Lab: [facility] [address] Performing Lab: [facility] [address] [facility] CBC & DIFF EOSINOPHIL S [#/VOLUME] IN BLOOD BY AUTOMATED COUNT 0.16 10*3/uL 0 - 0.5 10/08 Specimen Type: BLOOD Comment: Automated Differentia l Performed Ordering Provider: ANKUSH BOWMAN Report Released Date/Time: Sep 24, 2022 01:55 PM Reporting Lab: [facility] [address] Performing Lab: [facility] [address] [facility] CBC & DIFF BASOPHILS [#/VOLUME] IN BLOOD BY AUTOMATED COUNT 0.03 10*3/uL 0 - 0.2 10/08 Specimen Type: BLOOD Comment: Automated Differentia l Performed Ordering Provider: ANKUSH BOWMAN Report Released Date/Time: Sep 24, 2022 01:55 PM Reporting Lab: [facility] [address] Performing Lab: [facility] [address] [facility] CBC & DIFF IG(META,MY MALACHI,PRO) 0.3 10/08 Specimen Type: BLOOD Comment: Automated Differentia l Performed Ordering Provider: ANKUSH BOWMAN Report Released Date/Time: Sep 24, 2022 01:55 PM Reporting Lab: [facility] [address] Performing Lab: [facility] [address] [facility] CBC & DIFF IMMATURE GRANULOCYT ES [PRESENCE] IN BLOOD BY AUTOMATED COUNT 0.02 10*3/uL 0 - 0.1 10/08 Specimen Type: BLOOD Comment: Automated Differentia l Performed Ordering Provider: ANKUSH BOWMAN Report Released Date/Time: Sep 24, 2022 01:55 PM Reporting Lab: [facility] [address] Performing Lab: [facility] [address] [facility] COMPREHE NSIVE METABOLI C PANEL+MG CREATININE [MASS/VOLU ME] IN SERUM OR PLASMA 0.7 mg/dL 0.7 - 1.2 10/08 Specimen Type: PLASMA No comment entered. Ordering Provider: ANKUSH BOWMAN Report Released Date/Time: Sep 24, 2022 01:55 PM Reporting Lab: [facility] [address] Performing Lab: [facility] [address] [facility] COMPREHE NSIVE METABOLI C PANEL+MG UREA NITROGEN [MASS/VOLU ME] IN SERUM OR PLASMA 16 mg/dL 8 - 26 10/08 Specimen Type: PLASMA No comment entered. Ordering Provider: ANKUSH BOWMAN Report Released Date/Time: Sep 24, 2022 01:55 PM Reporting Lab: [facility] [address] Performing Lab: [facility] [address] [facility] COMPREHE NSIVE METABOLI C PANEL+MG GLUCOSE [MASS/VOLU ME] IN SERUM OR PLASMA 94 mg/dL 70 - 100 10/08 Specimen Type: PLASMA No comment entered. Ordering Provider: ANKUSH BOWMAN Report Released Date/Time: Sep 24, 2022 01:55 PM Reporting Lab: [facility] [address] Performing Lab: [facility] [address] [facility] COMPREHE NSIVE METABOLI C PANEL+MG SODIUM [MOLES/VOL UME] IN SERUM OR PLASMA 138 mmol/L 136 - 145 10/08 Specimen Type: PLASMA No comment entered. Ordering Provider: ANKUSH BOWMAN Report Released Date/Time: Sep 24, 2022 01:55 PM Reporting Lab: [facility] [address] Performing Lab: [facility] [address] [facility] COMPREHE NSIVE METABOLI C PANEL+MG POTASSIUM [MOLES/VOL UME] IN SERUM OR PLASMA 3.9 mmol/L 3.5 - 5.1 10/08 Specimen Type: PLASMA No comment entered. Ordering Provider: ANKUSH BOWMAN Report Released Date/Time: Sep 24, 2022 01:55 PM Reporting Lab: [facility] [address] Performing Lab: [facility] [address] [facility] COMPREHE NSIVE METABOLI C PANEL+MG CHLORIDE [MOLES/VOL UME] IN SERUM OR PLASMA 101 mmol/L 98 - 107 10/08 Specimen Type: PLASMA No comment entered. Ordering Provider: ANKUSH BOWMAN Report Released Date/Time: Sep 24, 2022 01:55 PM Reporting Lab: [facility] [address] Performing Lab: [facility] [address] [facility] COMPREHE NSIVE METABOLI C PANEL+MG CARBON DIOXIDE, TOTAL [MOLES/VOL UME] IN SERUM OR PLASMA 28 mmol/L 22 - 29 10/08 Specimen Type: PLASMA No comment entered. Ordering Provider: ANKUSH BOWMAN Report Released Date/Time: Sep 24, 2022 01:55 PM Reporting Lab: [facility] [address] Performing Lab: [facility] [address] [facility] COMPREHE NSIVE METABOLI C PANEL+MG CALCIUM [MASS/VOLU ME] IN SERUM OR PLASMA 9.7 mg/dL 8.4 - 10.2 10/08 Specimen Type: PLASMA No comment entered. Ordering Provider: ANKUSH BOWMAN Report Released Date/Time: Sep 24, 2022 01:55 PM Reporting Lab: [facility] [address] Performing Lab: [facility] [address] [facility] COMPREHE NSIVE METABOLI C PANEL+MG PROTEIN [MASS/VOLU ME] IN SERUM OR PLASMA 7.6 g/dL 6.0 - 8.3 10/08 Specimen Type: PLASMA No comment entered. Ordering Provider: ANKUSH BOWMAN Report Released Date/Time: Sep 24, 2022 01:55 PM Reporting Lab: [facility] [address] Performing Lab: [facility] [address] [facility] COMPREHE NSIVE METABOLI C PANEL+MG ALBUMIN [MASS/VOLU ME] IN SERUM OR PLASMA 4.2 g/dL 3.5 - 5.2 10/08 Specimen Type: PLASMA No comment entered. Ordering Provider: ANKUSH BOWMAN Report Released Date/Time: Sep 24, 2022 01:55 PM Reporting Lab: [facility] [address] Performing Lab: [facility] [address] [facility] COMPREHE NSIVE METABOLI C PANEL+MG BILIRUBIN. TOTAL [MASS/VOLU ME] IN SERUM OR PLASMA 0.6 mg/dL 0.2 - 1.2 10/08 Specimen Type: PLASMA No comment entered. Ordering Provider: ANKUSH BOWMAN Report Released Date/Time: Sep 24, 2022 01:55 PM Reporting Lab: [facility] [address] Performing Lab: [facility] [address] [facility] COMPREHE NSIVE METABOLI C PANEL+MG MAGNESIUM [MASS/VOLU ME] IN SERUM OR PLASMA 2.1 mg/dL 1.6 - 2.6 10/08 Specimen Type: PLASMA No comment entered. Ordering Provider: ANKUSH BOWMAN Report Released Date/Time: Sep 24, 2022 01:55 PM Reporting Lab: [facility] [address] Performing Lab: [facility] [address] [facility] COMPREHE NSIVE METABOLI C PANEL+MG ANION GAP IN SERUM OR PLASMA 9 mmol/L 5 - 15 10/08 Specimen Type: PLASMA No comment entered. Ordering Provider: ANKUSH BOWMAN Report Released Date/Time: Sep 24, 2022 01:55 PM Reporting Lab: [facility] [address] Performing Lab: [facility] [address] [facility] COMPREHE NSIVE METABOLI C PANEL+MG ALKALINE PHOSPHATAS E [ENZYMATIC ACTIVITY/V OLUME] IN SERUM OR PLASMA 96 U/L 40 - 150 10/08 Specimen Type: PLASMA No comment entered. Ordering Provider: ANKUSH BOWMAN Report Released Date/Time: Sep 24, 2022 01:55 PM Reporting Lab: [facility] [address] Performing Lab: [facility] [address] [facility] COMPREHE NSIVE METABOLI C PANEL+MG ALANINE AMINOTRANS FERASE [ENZYMATIC ACTIVITY/V OLUME] IN SERUM OR PLASMA 29 U/L <55 - 55 10/08 Specimen Type: PLASMA No comment entered. Ordering Provider: ANKUSH BOWMAN Report Released Date/Time: Sep 24, 2022 01:55 PM Reporting Lab: [facility] [address] Performing Lab: [facility] [address] [facility] COMPREHE NSIVE METABOLI C PANEL+MG ASPARTATE AMINOTRANS FERASE [ENZYMATIC ACTIVITY/V OLUME] IN SERUM OR PLASMA 22 U/L <34 - 34 10/08 Specimen Type: PLASMA No comment entered. Ordering Provider: ANKUSH BOWMAN Report Released Date/Time: Sep 24, 2022 01:55 PM Reporting Lab: [facility] [address] Performing Lab: [facility] [address] [facility] COMPREHE NSIVE METABOLI C PANEL+MG GLOMERULAR FILTRATION RATE/1.73 SQ M.PREDICTE D [VOLUME RATE/AREA] IN SERUM, PLASMA OR BLOOD BY CREATININE -BASED FORMULA (CKD-EPI) >90 60 10/08 Specimen Type: PLASMA No comment entered. Ordering Provider: ANKUSH BOMWAN Report Released Date/Time: Sep 24, 2022 01:55 PM Reporting Lab: [facility] [address] Performing Lab: [facility] [address] [facility] CYSTATIN C WITH EGFR CYSTATIN C [MASS/VOLU ME] IN SERUM OR PLASMA 1.38 mg/L 0.51 - 1.05 11/28 /2022 H Specimen Type: PLASMA No comment entered. Ordering Provider: ANKUSH BOWMAN Report Released Date/Time: Sep 24, 2022 01:55 PM Reporting Lab: [facility] [address] Performing Lab: [facility] [address] [facility] CYSTATIN C WITH EGFR CYSTATIN C AND GLOMERULAR FILTRATION RATE BY CYSTATIN-B ASED FORMULA PANEL - SERUM OR PLASMA 48 60 10/08 L Specimen Type: PLASMA No comment entered. Ordering Provider: ANKUSH BOWMAN Report Released Date/Time: Sep 24, 2022 01:55 PM Reporting Lab: [facility] [address] Performing Lab: [facility] [address] [facility] VIT D 25-OH,TO ZAMZAM 25-HYDROXY VITAMIN D3 [MASS/VOLU ME] IN SERUM OR PLASMA 54 ng/mL 12 - 50 10/08 H Specimen Type: SERUM No comment entered. Ordering Provider: ANKUSH BOWMAN Report Released Date/Time: Sep 24, 2022 01:55 PM Reporting Lab: [facility] [address] Performing Lab: [facility] [address] [facility] Encounters Combined list of: 1) Encounters from Department of Veterans Affairs facilities going back up to thelast 18 months. 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 Location Location Details Encounter Type Encounter Number Reason For Visit Attending Provider ADM Date DC Date Status Disposition Source [facility] Encounter [id number] [facility] PRO PHONE CALL 21-30 MIN [id number] Diagnos is: ICD-10- CM G82.20 Paraple mary kay, unspeci fied
Hever CASTRO 01/08 [facility] En[facility] [id number] [facility], [id number] Diagnos is: ICD-10- CM G82.20 Paraple mary kay, unspeci fied
TIGIST BASSETT 01/30 [facility] En[facility] [id number] [facility] MTMS BY PHARM ADDL 15 MIN [id number] Diagnos is: ICD-10- CM G82.20 Paraple mary kay, unspeci fied
MANPREET BARRETTEY N 02/05 [facility] OT EVAL LOW COMPLEX 30 MIN [id number] Diagnos is: ICD-10- CM Z73.6 Limitat ion of activit ies due to disabil ity<br/ > Bryn PARDO 02/05 [facility] OFF/OP EST MAY X REQ PHY/QHP [id number] Diagnos is: ICD-10- CM G82.20 Paraple mary kay, unspeci fied
JOSUÉ ZAMORA J 02/05 [facility] PSYCH DIAGNOSTIC EVALUATION [id number] Diagnos is: ICD-10- CM F32.A Depress ion, unspeci fied
BINU GAMEZ 02/05 [facility] OFF[facility] O/P EST MOD 30-39 MIN [id number] Diagnos is: ICD-10- CM G82.20 Paraple mary kay, unspeci fied
ME LOGAN BOWMAN 02/05 [facility] PSYCH DIAGNOSTIC EVALUATION [id number] Diagnos is: ICD-10- CM G82.20 Paraple mary kay, unspeci fied
MAHI ABAD DESIRE J 02/05 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 [place] [id number] Diagnos is: ICD-10- CM Z43.3 Encount er for attenti on to colosto my
VIOLA YOON 02/08 [facility] OFF[facility] O/P EST HI 40-54 MIN [id number] Diagnos is: ICD-10- CM G82.20 Paraple mary kay, unspeci fied
ME LOGAN BOWMAN 02/13 [facility] WHEELCHAIR MNGMENT TRAINING [id number] Diagnos is: ICD-10- CM Z73.6 Limitat ion of activit ies due to disabil ity<br/ > BOUSLOG,RY AN P 02/13 [facility] Out[facility] Encounter [id number] 02/19 [facility] HC PRO PHONE CALL 11-20 MIN [id number] Diagnos is: ICD-10- CM Z73.6 Limitat ion of activit ies due to disabil ity<br/ > BOUSLOG,RY AN P 04/23 [facility] Out[facility] Encounter [id number] 04/24 [facility] Out[facility] Encounter [id number] 05/24 [facility] OFF/OP EST MAY X REQ PHY/QHP [id number] Diagnos is: ICD-10- CM G82.20 Paraple mary kay, unspeci fied
VIOLA YOON 05/28 [facility] [place] [facility] WHEELCHAIR MNGMENT TRAINING [id number] Diagnos is: ICD-10- CM Z73.6 Limitat ion of activit ies due to disabil ity<br/ > BOUSLOG,RY AN P 06/10 [facility] [place] [facility] Encounter [id number] 10/28 [facility] [place] Out[facility] Encounter [id number] 11/20 [facility] [place] [facility] Out[facility] Encounter [id number] 05/12 [facility] Social History Combined list of available smoking, tobacco, and other social history from 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 Social History Type Response Date Comment [facility] Tobacco smoking status [facility] NEVER USED 05/28/20 22 [facility] This section is an empty social history section. [facility] Plan of Care List of future care activities from Department 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 Additional future care activities may be listed in the Assessment and Plan section. Date/Time Care Activity Care Activity Detail Facili ty 06/24/2024 AMBULATORY - REHAB MEDICINE AMBULATORY - REHAB MEDICINE [facility] 05/12/2024 Consult Order SCI/D WHEELCHAIR SEATING/POSITIONING OUTPT Cons Dental Treatment Coordinator's Choice [facility] Advance Directives List of completed, amended, or rescinded Advance Directives on record at Department of 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 An actual copy of the Directive is not included. Date Advance Directive Provider Source 02/05/2023 ADVANCE DIRECTIVE DISCUSSION GUSTAVO ABAD [facility]
--- OUTSIDE RECORDS SUMMARY | 2024-06-16 12:34 | XMS_ITS | Clinical Summary ---
Author Organization [facility] [facility] Address [place], [place] [address] Care Team Providers Care Mothercraft Nurse Name Role Phone Zelalem Cohen MD Unavailable [phone] May Randle) Unavailable Franklin Squires MD Primary Care Provider Fred Craft Unavailable [phone] Diane Charles MD Unavailable [phone] Julia Ware RN Unavailable [phone] Allergies Active Allergy Reactions Criticality Noted Date [...] bedIndications:Non-heal ing surgical wound, subsequent encounter Drive AwesomeHighlighter 8 inch low loss mattress and 1/2 rails. Semi-electric bed. Length of need 6 weeks. Bed plastic block boiler reliner:no 1 unit 018 Active acetaminophen (TYLENOL EXTRA [...] 60mm, Cut-to-Fit 01/16 - 2 11/18. Item #[id number]. 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),Anticoagulation monitoring, INR range 2-3,Anticoagulation monitoring, INR range 2-3,SDH (subdural hematoma) (HC) Take by mouth 7.5 mg (7.5 mg x 1) every day in the evening OR as directed 95 Tablet Active oxyCODONE 10 mg tabletIndications:Chron ic pain [...] evening OR as directed 024 2023 Discontinued Active Problems Problem Noted [...] Date Resolved Date Soft tissue infection 10/22/20232023 [facility] current use of anticoagulant 06/20/2023 01/08/2024 Cellulitis [...] delivery 04/16/2007 10/01/2007 Overview: S/P IVC Filter [facility] (current) use of anticoagulants 02/19/2007 09/27/2008 Depressive disorder, not elsewhere classified 02/14/20 07 01/15/2018 Abnormality of gait 12/24/2006 09/27/20 08 Urinary tract infection, site not specified 12/24/2006 01/15/2018 BENIGN ESSENTIAL HYPERTENSION 12/24/2006 04/17/2016 Overview: borderline Necrotizing fasciitis 2018 Type 2 diabetes mellitus Encounters Date Type Department Care Team Description 06/11/[address] [place] [address] Franklin Squires MD Refill Request (Warfarin) 06/03/2024 Anticoagulation (warfarin) [address] [address] 1, [facility] Anticoagulation (Acelis) 06/02/[address] [address] Franklin Squires MD Refill Request (Oxycodone) 05/20/2024 Anticoagulation (warfarin) [address] [address] 1, [facility] Anticoagulation (Acelis) 05/14/[address] [place] [address] Franklin Squires MD Refill Request (Baclofen) 05/14/[address] [place] [address] Franklin Squires MD Refill Request (Warfarin) 05/13/2024 Anticoagulation (warfarin) [address] [place] [address] 1, [facility] Anticoagulation (Acelis) 05/11/[address] [place] [address] Franklin Squires MD Form (Physician Orders and Home Health Certification and Plan of Care.) 05/06/2024 Anticoagulation (warfarin) [address] [place] [address] 1, [facility] Anticoagulation (Acelis) 05/05/2024 Telephone [facility] [address] [facility] [place] [address] Franklin Squires MD Form (60 Day Summary Report) 05/05/2024 Refill [facility] [address] [facility] [place] [address] Franklin Squires MD Refill Request (Warfarin) 05/04/2024 Telephone [facility] [address] [facility] [place] [address] Franklin Squires MD Form 05/04/2024 Refill [facility] [address] [facility] [place] [address] Franklin Squires MD Refill Request (Oxycodone) 05/01/2024 Anticoagulation (warfarin) [facility] [address] [facility] [place] [address] 1, [facility] Anticoagulation (Acelis) 04/29/2024 Refill [facility] [address] [facility] [place] [address] Franklin Squires MD Refill Request (Duloxetine, Donepezil) 04/24/2024 2:49 PM CDT - 04/24/2024 2:50 PM CDT Emergency [facility] [address] [place] [address] Discharge Disposition: Against Medical Advice or Discontinued Care 04/24/2024 Travel 04/24/2024 Anticoagulation (warfarin) [facility] [address] [facility] [place] [address] 1, [facility] Anticoagulation (Acelis) 04/21/2024 Telephone [facility] [address] [facility] [place] [address] Franklin Squires MD Refill Request (Gabapentin) 04/20/[address] [phone] Franklin Squires MD Form (Physician Orders. Urinary Catheter - Suprapubic. ) 04/20/[address] [phone] Franklin Squires MD Refill Request (Gabapentin 400 mg) 04/13/[address] [phone] Franklin Squires MD Form (Standard Written Order: Rehab Accessories. Cushion, Quadtro Select HI PRO 20x20 or 11x11 CELL) 04/07/2024 Anticoagulation (warfarin) [address] [phone] , [facility] Anticoagulation (acelis) 04/07/[address] [address] Franklin Squires MD Form (Physician Orders) 04/03/2024 2:30 PM CDT Office Visit [address] [address] Franklin Squires MD Follow Up (6 week follow up) 04/03/2024 Travel 04/02/[address] [address] Franklin Squires MD Refill Request (Oxycodone) 03/28/[address] [address] Franklin Squires MD Refill Request (Furosemide) 03/20/2024 4:32 PM CDT - 03/20/2024 8:34 PM CDT Emergency [facility] [address] [facility] [place] [address] Quan Corbett PA Suprapubic catheter dysfunction, initial encounter (HC) (Primary Dx) Discharge Disposition: Home Self Care 03/20/2024 Travel 03/20/2024 Telephone [facility] [address] [facility] [place] [phone] Franklin Squires MD other (FYI / UPDATE ) 03/19/2024 Anticoagulation (warfarin) [facility] [address] [facility] [place] [address] [facility] Anticoagulation (acelis) from Last 3 Months Immunizations Name Administration Dates Next Due COVID-19 vaccine (DEUS-Bio NTech 30mcg/0.3mL) 12YO+ BIVALENT PF, MDV 10/22/2022 [...] Description 07/02/2024 1:30 PM CDT Office Visit [facility] [address] [facility] [place] [phone] Franklin Squires MD [address], [place] [phone] 07/08/2024 1:30 PM CDT Nurse/Clinic Staff Only [facility] [address] [place] [phone] Health Maintenance Due Date Last Done Comments [...] MONITOR AC Routine 03/19/2024 12:00 AM CDT from Last 3 Months Results * HOME MONITOR AC (06/03/2024 12:00 AM CDT) Only the most recent of8 resultswithin the time period is included. PATIENT REPORTED HOME INR 2.4 2.00 - 3.00 ALERE HOME MONITORING 06/03/2024 Franklin Squires MD OTHER [facility] [address] [place] [address] * BLADDER CATHETERIZATION (03/20/2024 7:52 PM CDT) [...] ?Risks discussed: ??Pain, incomplete procedure and infection [place] protocol: ??Procedure explained and questions answered to [...] 2+ Pseudomonas aeruginosa 03/28/2024 11:28 AM CDT [facility] CULTURE 2+ Staphylococcus aureus 03/28/2024 11:28 AM T [facility] Comment:Isolate is MRSA (Met hicillin-resistant Staph aureus). CULTURE 2+ Mixed brigette present 03/28/2024 11:28 AM T [facility] GRAM STAIN No PMNs 03/28/2024 11:28 AM CDT [facility] GRAM STAIN No Epithelial cells 03/28/2024 11:28 AM CDT [facility] GRAM STAIN No RBCs 03/28/2024 11:28 AM CDT [facility] GRAM STAIN 4+ Gram Negative Bacilli 03/28/2024 11:28 AM CDT [facility] GRAM STAIN 2+ Gram Positive Cocci 03/28/2024 11:28 AM CDT [facility] Other SPECIMEN FROM [facility] / Unknown Non-Blood / Unknown 03/20/2024 5:01 PM CDT 03/20/2024 5:05 PM CDT [facility] - 03/28/2024 11:28 AM CDT [...] TRIMETHOPRIM/SULF <=0.5/9.5: S uQan RAMSEY MICROBIOLOG Y [facility] [address] [place] [address], [place] * (ABNORMAL) CBC WITH AUTO DIFFERENTIAL (03/20/2024 4:[address] [facility] WHITE BLOOD COUNT 10.9 4.5 - 11.0 thou/cu mm 03/20/2024 5:06 PM [facility] RED BLOOD COUNT 4.92 4.30 - 5.90 mil/cu mm 03/20/2024 5:06 PM [facility] HEMOGLOBIN 12.7(L) 13.5 - 17.5 g/dL 03/20/2024 5:06 PM [facility] HEMATOCRIT 40.0 37.0 - 53.0 % 03/20/2024 5:06 PM [facility] MCV 81 80 - 100 fL 03/20/2024 5:06 PM [facility] MCH 25.8(L) 26.0 - 34.0 pg 03/20/2024 5:06 PM [facility] MCHC 31.8(L) 32.0 - 36.0 g/dL 03/20/2024 5:06 PM [facility] RDW 18.1(H) 11.5 - 15.5 % 03/20/2024 5:06 PM [facility] PLATELET COUNT 263 140 - 440 thou/cu mm 03/20/2024 5:06 PM [facility] MPV 9.4 6.5 - 11.0 fL 03/20/2024 5:06 PM [facility] % NEUT 68.4 % 03/20/2024 5:06 PM [facility] % LYMPH 20.1 % 03/20/2024 5:06 PM [facility] % MONO 8.4 % 03/20/2024 5:06 PM [facility] % EOS 2.8 % 03/20/2024 5:06 PM [facility] % BASO 0.3 % 03/20/2024 5:06 PM [facility] ABSOLUTE NEUTROPHILS 7.4(H) 1.7 - 7.0 thou/cu mm 03/20/2024 5:06 PM CDT [facility] ABSOLUTE LYMPHOCYTES 2.2 0.9 - 2.9 thou/cu mm 03/20/2024 5:06 PM CDT [facility] ABSOLUTE MONOCYTES 0.9(H) <0.9 thou/cu mm 03/20/2024 5:06 PM CDT [facility] ABSOLUTE EOSINOPHILS 0.3 <0.5 thou/cu mm 03/20/2024 5:06 PM CDT [facility] ABSOLUTE BASOPHILS 0.0 <0.3 thou/cu mm 03/20/2024 5:06 PM CDT [facility] Blood BLOOD SPECIMEN / Unknown Butterfly / Unknown 03/20/2024 4:58 PM CDT 03/20/2024 5:02 PM CDT [facility] HEMATOLOGY Performing Organization Address [facility]/ZIP Co de Phone Number [facility] [address] [place] [address] * LACTATE VENOUS (03/20/2024 4:58 PM CDT) Pathologist [facility] LACTATE,VENOUS 1.3 0.5 - 2.0 mmol/L 03/20/2024 5:21 PM CDT [facility] Blood BLOOD SPECIMEN / Unknown Butterfly / Unknown 03/20/2024 4:58 PM CDT 03/20/2024 5:02 PM CDT Qu[facility] RAMSEY CHEMISTRY [facility] [address] [place] [address] * (ABNORMAL) BASIC METABOLIC PANEL (03/20/2024 4:58 PM CDT) Pathologist [facility] SODIUM 139 136 - 145 mmol/L 03/20/2024 5:22 PM CDT [facility] POTASSIUM 4.5 3.5 - 5.1 mmol/L 03/20/2024 5:22 PM CDT [facility] CHLORIDE 100 98 - 107 mmol/L 03/20/2024 5:22 PM [facility] CO2,TOTAL 29 22 - 29 mmol/L 03/20/2024 5:22 PM [facility] ANION GAP 10 5 - 18 03/20/2024 5:22 PM [facility] GLUCOSE 115(H) 70 - 99 mg/dL 03/20/2024 5:22 PM [facility] CALCIUM 9.4 8.8 - 10.2 mg/dL 03/20/2024 5:22 PM [facility] BUN 21 8 - 23 mg/dL 03/20/2024 5:22 PM [facility] CREATININE 0.63(L) 0.70 - 1.20 mg/dL 03/20/2024 5:22 PM [facility] BUN/CREAT RATIO 33(H) 10 - 20 5:22 PM [facility] eGFR >90 >90 mL/min/1.7 3m2 03/20/2024 5:22 PM [facility] Comment:As of 2022, eG FR is calculated by the CKD-EPI creatinine equation without race adjustment. ??eGFR can be influenced by muscle mass, exercise, and diet. ??The reported eGFR is an estimation only and is only applicable if the renal function is stable. Blood BLOOD SPECIMEN / Unknown Butterfly / Unknown 03/20/2024 4:58 PM CDT 03/20/2024 5:02 PM T Qu[facility] RAMSEY CHEMISTRY [facility] [address] [place] [address] from Last 3 Months Additional [...] 12 months since positive culture): resides in acute/care home care, receiving hemodialysis, has chronic open wounds/skin damage, has long-term percutaneous indwelling medical devices Exclusions for nares collection (if <12 months since positive culture) include all of the previous exclusions plus patients on antibiotics 7 days prior to collection 03/13/2018 03/20/2024 Advance Directives Documents on File Type Date Recorded Patient Director Child Expl anation Healthcare Directive 05/09/2023 023 Healthcare [...] Code Status Discussion: Reviewed Preferences Care Teams Mothercraft Nurse Relationship Specialty Start Date End Date Franklin Squires MD [address] [facility] [place] [address] PCP - General Family Practice 10/18/15 Zelalem Cohen MD Physical Therapist 03/13/12 May Randle Md, MD Physical Medicine and Rehabilitation 03/13/12 [place], ANTHONY KruegerW [address] [facility] [place] [address] Embedded Software Programmer 05/03/17 Diane Charles MD [address] [place] [address] Surgery - Urology 01/17/23 Julia Ware, RN [address] [facility] [place] [address] Registered Nurse 07/17/23
--- OUTSIDE RECORDS SUMMARY | 2024-06-16 12:34 | XMS_ITS ---
Author Organization [email or web address] Address [address] [address] Care Team Providers Care Mowing Machine Operator Name Role Phone Franklin Squires MD Primary Care Provider [phone] Active Problems Problem Noted Date Diagnosed Date [...] treatments are documented for this patient in [facility]. Treatments may have been administered in another system. Resolved Problems Problem Noted Date Diagnosed Date Resolved Date Gait abnormality 01/17/2012 02/09/2015 Back pain 01/17/2012 02/09/2015 Paraplegia 04/04/2011 02/09/2015 Osteoporosis 03/06/2011 02/09/2015 Urinary tract infection 12/24/200603/11
--- OUTSIDE RECORDS SUMMARY | 2024-06-16 12:34 | XMS_ITS | Clinical Summary ---
Author Organization [email or web address] Address [address] [place] [address] Care Team Providers Care Manager Fund Name Role Phone Franklin Squires MD Primary Care Provider [phone] Source Comments You are receiving this document [...] for each transition of care or referral. [employer] Allergies Active Allergy Reactions Criticality Noted Date [...] Comments Blood Pressure 120/63 01/18/2022 12:59 PM POWERHOUSE E[employer]RIC[employer] Pulse 87 01/18/2022 12:59 PM [employer]HOUSE [employer]RIC[employer] Temperature 36.3 ??C (97.4 ??F) 01/18/2022 12:59 [...] this topic Medical Devices Implanted Type Area Provider Relations Consultant Device Identifier Shelf Expiration Date Model / Serial / Lot [id number] 4ml Tisseel Explanted:([place] ntity not on file) BIOLOGIC N/A: NECK Lynne Fenwall 09/10/2011 [id number] / [id number] / [id number] Description:posterior Cath Intrathecal Indura - [id number] Implanted:Qty: 1 on 05/09/2010 at [facility] DEVICE Right: LUMBAR SPINE [employer] 01/18/2012 8709 / N/A / [id number] 5 Cath Intrathecal Indura - [id number] Implanted:Qty: 1 on 05/29/2010 at [facility] DEVICE [employer] 8709 / / Scr Indira Conic 7.3x80 - [id number] Implanted:Qty: 1 on 03/13/2011 at [facility] DEVICE Right: FEMUR DISTAL [employer] 02.207.28 0 / NONE / NONE Plt Lcp Cndl Rt 4.5x170 6h - [id number] Implanted:Qty: 1 on 03/13/2011 at [facility] DEVICE Right: FEMUR DISTAL [employer] 222.656 / NONE / NONE Description:6 hole 170mm rig ht 4.5mm lcp condylar plate Scr Didier Ss Sftp 4.5x40 - [id number] Implanted:Qty: 1 on 03/13/2011 at [facility] DEVICE Left: FEMUR DISTAL [employer] 214.840 / NONE / NONE Scr Didier Ss Sftp 4.5x50 - [id number] Implanted:Qty: 1 on 03/13/2011 at [facility] DEVICE Left: FEMUR DISTAL [employer] 214.850 / NONE / NONE Scr Indira Lk 5.0x80 - [id number] Implanted:Qty: 2 on 03/13/2011 at [facility] DEVICE Left: FEMUR DISTAL [employer] 02.205.08 0 / NONE / NONE Scr Indira Lk 5.0x85 - [id number] Implanted:Qty: 2 on 03/13/2011 at [facility] DEVICE Left: FEMUR DISTAL [employer] 02.205.08 5 / NONE / NONE Scr Lk Sftp T25 5.0x50 - [id number] Implanted:Qty: 1 on 03/13/2011 at [facility] DEVICE Left: FEMUR DISTAL [employer] 212.219 / NONE / NONE Scr Lk Sftp T25 5.0x60 - [id number] Implanted:Qty: 1 on 03/13/2011 at [facility] DEVICE Left: FEMUR DISTAL [employer] 212.221 / NONE / NONE Scr Indira Conic 7.3x85 - [id number] Implanted:Qty: 1 on 03/13/2011 at [facility] DEVICE Left: FEMUR DISTAL [employer] 02.207.28 5 / NONE / NONE Plt Lcp Cndl Lt 4.5x170 6h - [id number] Implanted:Qty: 1 on 03/13/2011 at [facility] DEVICE Left: FEMUR DISTAL [employer] 222.657 / NONE / NONE Description:6 hole 170mmleng th left 4.5mm lcp condylar plate. Scr Didier Sftp 3.5x60 F-Thrd - [id number] Implanted:Qty: 1 on 03/13/2011 at [facility] DEVICE Left: TIBIA PROXIMAL [employer] 204.860 / NONE / NONE Scr Star Lk Sftp 3.5x32 - [id number] Implanted:Qty: 1 on 03/13/2011 at [facility] DEVICE Left: TIBIA PROXIMAL [employer] 212.112 / NONE / NONE Scr Star Lk Sftp 3.5x55 - [id number] Implanted:Qty: 2 on 03/13/2011 at [facility] DEVICE Left: TIBIA PROXIMAL [employer] 212.123 / NONE / NONE Scr Star Lk Sftp 3.5x60 - [id number] Implanted:Qty: 2 on 03/13/2011 at [facility] DEVICE Left: TIBIA PROXIMAL [employer] 212.124 / NONE / NONE Plt Lcp M/Prox Lt 3.5x94 4h - [id number] Implanted:Qty: 1 on 03/13/2011 at [facility] DEVICE Left: TIBIA PROXIMAL [employer] 239.955 / NONE / NONE Scr Didier Ss Sftp 4.5x36 - [id number] Implanted:Qty: 1 on 03/13/2011 at [facility] DEVICE Right: FEMUR DISTAL [employer] 214.836 / NONE / NONE Scr Didier Ss Sftp 4.5x44 - [id number] Implanted:Qty: 1 on 03/13/2011 at [facility] DEVICE Right: FEMUR DISTAL [employer] 214.844 / NONE / NONE Scr Indira Lk 5.0x75 - [id number] Implanted:Qty: 1 on 03/13/2011 at [facility] DEVICE Right: FEMUR DISTAL [employer] 02.205.07 5 / NONE / NONE Scr Indira Lk 5.0x85 - [id number] Implanted:Qty: 2 on 03/13/2011 at [facility] DEVICE Right: FEMUR DISTAL [employer] 02.205.08 5 / NONE / NONE Scr Lk Sftp T25 5.0x44 - [id number] Implanted:Qty: 1 on 03/13/2011 at [facility] DEVICE Right: FEMUR DISTAL [employer] 212.216 / NONE / NONE Scr Lk Sftp T25 5.0x65 - [id number] Implanted:Qty: 1 on 03/13/2011 at [facility] DEVICE Right: FEMUR DISTAL [employer] 212.222 / NONE / NONE Plt Lp T Ti Str 4h - [id number] Implanted:Qty: 3 on 07/28/2014 by Cooper Shelley MD at [facility] DEVICE Right: SKULL [employer] 421.504 / / Scr Matrix Sfdr 4mm - [id number] Implanted:Qty: 6 on 07/28/2014 by Cooper Shelley MD at [facility] DEVICE Right: SKULL [employer] 04.503.10 4.01 / / Lead Linear 3-4 8 Contact 50cm - [id number] Implanted:Qty: 1 on 03/08/2016 by Zelalem Cohen DO at [facility] DEVICE N/A: OTHER-SEE DESCRIPTION [facility] 09/10/2017 [id number] 2500 / / [id number] Description:LUMBAR Lead Linear 3-4 8 Contact 50cm - [id number] Implanted:Qty: 1 on 03/08/2016 by Zelalem Cohen DO at [facility] DEVICE N/A: OTHER-SEE DESCRIPTION [facility] 09/10/2017 [id number] 2500 / / [id number] Description:LUMBAR Lead Linear 3-4 8 Contact 50cm - [id number] Implanted:Qty: 1 on 03/08/2016 by Zelalem Cohen DO at [facility] DEVICE N/A: OTHER-SEE DESCRIPTION [facility] 09/10/2017 [id number] 2500 / / [id number] Description:LUMBAR Lead Linear 3-4 8 Contact 50cm - [id number] Implanted:Qty: 1 on 03/08/2016 by Zelalem Cohen DO at [facility] DEVICE N/A: OTHER-SEE DESCRIPTION [facility] 09/10/2017 [id number] 2500 / / [id number] Description:LUMBAR Lead Linear 3-4 8 Contact 50cm - [id number] Implanted:Qty: 1 on 05/24/2016 by Zelalem Cohen DO at [facility] DEVICE N/A: SPINE LUMBAR POSTERIOR [facility] 01/31/2018 [id number] 2500 / [id number] / Lead Linear 3-4 8 Contact 50cm - [id number] Implanted:Qty: 1 on 05/24/2016 by Zelalem Cohen DO at [facility] DEVICE N/A: SPINE LUMBAR POSTERIOR [facility] 04/26/2018 [id number] 2500 / [id number] / Lead Linear 3-4 8 Contact 50cm - [id number] Implanted:Qty: 1 on 05/24/2016 by Zelalem Cohen DO at [facility] DEVICE N/A: SPINE LUMBAR POSTERIOR [facility] 04/26/2018 [id number] 2500 / [id number] / Lead Linear 3-4 8 Contact 50cm - [id number] Implanted:Qty: 1 on 05/24/2016 by Zelalem Cohen DO at [facility] DEVICE N/A: SPINE LUMBAR POSTERIOR [facility] 04/26/2018 [id number] 2500 / [id number] / Generator Pulse Spectra - [id number] Implanted:Qty: 1 on 05/24/2016 by Zelalem Cohen DO at [facility] DEVICE N/A: SPINE LUMBAR POSTERIOR [facility] 05/08/2018 [id number] / [id number] / [id number] [employer] Ran - [id number] Implanted:Qty: 1 on 05/24/2016 by Zelalem Cohen DO at [facility] DEVICE N/A: SPINE LUMBAR POSTERIOR [facility] 05/02/2018 [id number] 60 / / [id number] [employer] Ran - [id number] Implanted:Qty: 1 on 05/24/2016 by Zelalem Cohen DO at [facility] DEVICE N/A: SPINE LUMBAR POSTERIOR [facility] 02/28/2018 [id number] 60 / / [id number] Procedures Procedure Name Priority Date/Time Associated Diagnosis Comments CREATININE/GFR, WB POC Routine 01/06/2016 12:04 PM POWERHOUSE ELECTRICIAN Back pain, 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 HGB A1C Routine 07/29/2014 3:19 AM CDT from Last 3 Months or Most Recently Relevant to Health Maintenance Results * CREATININE/GFR, WB POC (01/06/2016 12:04 PM POWERHOUSE ELECTRICIAN) Creat Whole Blood 0.9 0.66 - 1.25 mg/dl [facility] GFR, Estimated >60 >60 ml/min/1.7 3m2 [facility] GFR, Est., If Black >60 >60 ml/min/1.7 3m2 [facility] 01/06/2016 12:0 4 PM POWERHOUSE ELECTRICIAN 01/06/2016 12:21 PM POWERHOUSE ELECTRICIAN Trae Blair MD LAB[facility] [phone] * (ABNORMAL) HGB A1C (07/29/2014 3:19 AM CDT) Hgb A1c 6.4(H) 4.3 - 6.1 % [facility] Comment: The usual A1C goal for people with diabetes, age 18-75, is <8.0%. Physicians may recommend a higher or lower goal for specific individuals. 07/29/2014 3:19 AM CDT 07/29/2014 3:22 AM CDT [facility] - 07/29/2014 12:53 PM CDT Performed at [employer] [facility], [address] ??[address] [place] Wei PA-C LAB_[address] [address] from Last 3 Months or Most Recently [...] 5:44 PM 07/28/2014 6:50 PM Care Teams Manager Fund Relationship Specialty Start Date End Date Franklin Squires MD [address] [facility] [address] [place] [address] PCP - General Family Practice 03/08/16
--- OUTSIDE RECORDS SUMMARY | 2024-06-16 12:35 | XMS_ITS | Encounter Summary ---
Author Organization [facility] Address [address] [address] Care Team Providers Care Statistical Engineer Name Role Phone Franklin Squires MD Primary Care Provider Encounter Details Date Type Department Care Team (Late st Contact Info) Description 12/16/2013 Correspondence [facility] Radiology [address] [place] [address] Radiology, Provider MRI SAFETY SHEET AND COMPATIBILITY [...] Radiology, Provider - 12/16/2013 12:00 AM CST ACE GRINDER TENDER documented in this encounter Plan of Treatment Not on file documented as of this encounter Visit Diagnoses Not on filedocumented in this encounter Care Teams Statistical Engineer Relationship Specialty Start Date End Date Franklin Squires MD 100 [facility] [place] [address] PCP - General Family Practice 03/08/16 documented as of this encounter
--- OUTSIDE RECORDS SUMMARY | 2024-06-16 12:35 | XMS_ITS | Encounter Summary ---
Author Organization [facility] Address [address] [address] Care Team Providers Care Head Banquet Waitress Name Role Phone Franklin Squires MD Primary Care Provider Encounter Details Date Type Department Care Team (Late st Contact Info) Description 03/11/2014 Correspondence [facility] 401 Interventional Pain Management 401 [place] [address] Zelalem Cohen, DO [address] [place] [address] EMPI Social History Tobacco Use Types Packs/Day [...] filedocumented in this encounter Care Teams Head Banquet Waitress Relationship Specialty Start Date End Date Franklin Squries MD 100 [facility] [place] [address] PCP - General Family Practice 03/08/16 documented as of this encounter
--- OUTSIDE RECORDS SUMMARY | 2024-06-16 12:35 | XMS_ITS | Encounter Summary ---
Author Organization [facility] [address] [address] Care Team Providers Care Electrical Controls Assembler Name Role Phone Franklin Squires MD Primary Care Provider Encounter Details Date Type Department Care Team (Late st Contact Info) Description 07/08/2015 Correspondence [facility] Physical Therapy [address] [place] [address] Trudi Raymundo, PT [address] [place] [address] ADDENDUM FOR LETTER OF MEDICAL NECESSITY Social [...] filedocumented in this encounter Care Teams Electrical Controls Assembler Relationship Specialty Start Date End Date Franklin Squires MD 100 [facility] [place] [address] PCP - General Family Practice 03/08/16 documented as of this encounter
--- OUTSIDE RECORDS SUMMARY | 2024-06-16 12:35 | XMS_ITS | Encounter Summary ---
Author Organization [facility] Address [address] [address] Care Team Providers Care Bromination Equipment Operator Name Role Phone Franklin Squires MD Primary Care Provider [phone] Encounter Details Date Type Department Care Team (Late st Contact Info) Description 07/23/2013 Correspondence [facility] 401 Interventional Pain Management 401 [facility] [place] [address] Zelalem Cohen DO [address] [place] [address] EXPRESS SCRIPT Social History Tobacco Use Types [...] Cohen MD - 07/23/2013 12:00 AM CDT IMEDIA TECHNICIAN documented in this encounter Plan of Treatment Not on file documented as of this encounter Visit Diagnoses Not on filedocumented in this encounter Care Teams Bromination Equipment Operator Relationship Specialty Start Date End Date Franklin Squires MD 100 [facility] [address] PCP - General Family Practice 03/08/16 documented as of this encounter
--- OUTSIDE RECORDS SUMMARY | 2024-06-16 12:35 | XMS_ITS | Encounter Summary ---
Author Organization [facility] Address [address], [place] [address] Care Team Providers Care Hot Strip Mill Supervisor Name Role Phone Franklin Squires MD [...] filedocumented in this encounter Care Teams Hot Strip Mill Supervisor Relationship Specialty Start Date End Date Franklin Squires MD 100 [facility] [address] PCP - General Family Practice 03/08/16 documented as of this encounter
--- OUTSIDE RECORDS SUMMARY | 2024-06-16 12:35 | XMS_ITS | Encounter Summary ---
Author Organization [facility] Address [address] [address] Care Team Providers Care Lead Software Architect Name Role Phone Franklin Squires MD Primary Care Provider Encounter Details Date Type Department Care Team (Late st Contact Info) Description 01/06/2016 Correspondence [facility] Radiology [address] [place] [address] Radiology, Provider MRI SAFETY SHEET AND COMPATIBILITY [...] filedocumented in this encounter Care Teams Lead Software Architect Relationship Specialty Start Date End Date Franlkin Squires MD [address] [place], [place] [address] [address] PCP - General Family Practice 03/08/16 documented as of this encounter
--- OUTSIDE RECORDS SUMMARY | 2024-06-16 12:35 | XMS_ITS | Encounter Summary ---
Author Organization [facility] Address [address] [address] Care Team Providers Care Lead Sprinkler Name Role Phone Franklin Squires MD Primary Care Provider Encounter Details Date Type Department Care Team (Late st Contact Info) Description 04/24/2012 Correspondence [facility] Radiology [address] [place] [address] Radiology, Provider MRI SAFETY SHEET AND COMPATIBILITY [...] filedocumented in this encounter Care Teams Lead Sprinkler Relationship Specialty Start Date End Date Franklin Squires MD 100 [facility] [place] [address] PCP - General Family Practice 03/08/16 documented as of this encounter
--- OUTSIDE RECORDS SUMMARY | 2024-06-16 12:35 | XMS_ITS | Encounter Summary ---
Author Organization [facility] Address [address] [address] Care Team Providers Care Risk Compliance Analyst Name Role Phone Franklin Squires MD Primary Care Provider Encounter Details Date Type Department Care Team (Late st Contact Info) Description 02/09/2016 Correspondence [facility] 401 NeuroSurgery 401 [facility]. [place], [place] [id number] Jodi Aguila PA-C [address] [place] [address] PATIENT LIFT PRESCRIPTION Social History Tobacco Use [...] on filedocumented in this encounter Care Teams Risk Compliance Analyst Relationship Specialty Start Date End Date Franklin Squires MD 100 [facility] [place] [phone] PCP - General Family Practice 03/08/16 documented as of this encounter
--- OUTSIDE RECORDS SUMMARY | 2024-06-16 12:35 | XMS_ITS | Encounter Summary ---
Author Organization [facility] Address [address] [address] Care Team Providers Care Information Technology Technician Name Role Phone Franklin Squires MD Primary Care Provider [phone] Encounter Details Date Type Department Care Team (Late st Contact Info) Description 12/16/2014 Correspondence External to External, [place] [address] MEDICARE PLAN OF CARE RECERT Social History [...] filedocumented in this encounter Care Teams Information Technology Technician Relationship Specialty Start Date End Date Franklin Squires MD [address] [place] [address] [facility] [place] [address] PCP - General Family Practice 03/08/16 documented as of this encounter
--- OUTSIDE RECORDS SUMMARY | 2024-06-16 12:35 | XMS_ITS | Encounter Summary ---
Author Organization [facility] Address [address] [address] Care Team Providers Care Director Food Safety Name Role Phone Franklin Squires MD [...] filedocumented in this encounter Care Teams Director Food Safety Relationship Specialty Start Date End Date Franklin Squires MD 100 [facility] [place] [address] PCP - General Family Practice 03/08/16 documented as of this encounter
--- OUTSIDE RECORDS SUMMARY | 2024-06-16 12:35 | XMS_ITS | Encounter Summary ---
Author Organization [facility] Address [address] [address] Care Team Providers Care Visitor Information Assistant Name Role Phone Franklin Squires MD Primary Care Provider [phone] Encounter Details Date Type Department Care Team (Late st Contact Info) Description 08/20/2014 Outside Hospital External to [facility]/P Social History Tobacco Use Types [...] on filedocumented in this encounter Care Teams Visitor Information Assistant Relationship Specialty Start Date End Date Franklin Squires MD [address] [place], [place] [address] [address] PCP - General Family Practice 03/08/16 documented as of this encounter
--- OUTSIDE RECORDS SUMMARY | 2024-06-16 12:35 | XMS_ITS | Encounter Summary ---
Author Organization [facility] Address [address] [address] Care Team Providers Care Roving Technician Name Role Phone Franklin Squires MD Primary Care Provider [phone] Encounter Details Date Type Department Care Team (Late st Contact Info) Description 09/07/2014 Correspondence [facility] Radiology [address] [place] [address] Radiology, Provider MRI SAFETY SHEET AND COMPATIBILITY [...] on filedocumented in this encounter Care Teams Roving Technician Relationship Specialty Start Date End Date Franklin Squires MD [address] [place], [place] [address] [address] PCP - General Family Practice 03/08/16 documented as of this encounter
--- OUTSIDE RECORDS SUMMARY | 2024-06-16 12:35 | XMS_ITS | Encounter Summary ---
Author Organization [facility] Address [address] [address] Care Team Providers Care Directory Clerk Name Role Phone Franklin Squires MD Primary Care Provider Encounter Details Date Type Department Care Team (Late st Contact Info) Description 04/20/[address] [address] Radiology, Provider MRI SAFETY SHEET AND COMPATIBILITY [...] on filedocumented in this encounter Care Teams Directory Clerk Relationship Specialty Start Date End Date Franklin Squires MD 100 [facility] [place] [address] PCP - General Family Practice 03/08/16 documented as of this encounter
--- OUTSIDE RECORDS SUMMARY | 2024-06-16 12:35 | XMS_ITS | Encounter Summary ---
Author Organization Replaced by [facility] Address [address] [address] Care Team Providers Care Truck Repair Supervisor Name Role Phone Franklin Squires MD Primary Care Provider [phone] Encounter Details Date Type Department Care Team (Latest Contact Info) Description 12/11/2017 Correspondence [facility]iatry/Physical Medicine at [facility] 295 [facility] [address] May Randle MD [address] [place] [address] [employer] Social History Tobacco Use [...] on filedocumented in this encounter Care Teams Truck Repair Supervisor Relationship Specialty Start Date End Date Franklin Squires MD [address] [place] [address] [place] [address] PCP - General Family Practice 03/08/16 documented as of this encounter
--- OUTSIDE RECORDS SUMMARY | 2024-06-16 12:35 | XMS_ITS | Encounter Summary ---
Author Organization [facility] [address] [address] Care Team Providers Care Shore Hand Dredge Or Barge Name Role Phone Franklin Squires MD Primary Care Provider [phone] Encounter Details Date Type Department Care Team (Late st Contact Info) Description 02/05/2014 Correspondence [facility] Physical Therapy [address] [place] [address] Trudi Raymundo, PT [address] [place] [address] LETTER OF MEDICAL NECESSITY FOR A WHEELCHAIR [...] on filedocumented in this encounter Care Teams Shore Hand Dredge Or Barge Relationship Specialty Start Date End Date Franklin Squires MD 100 [facility] [place] [address] PCP - General Family Practice 03/08/16 documented as of this encounter
--- OUTSIDE RECORDS SUMMARY | 2024-06-16 12:35 | XMS_ITS | Encounter Summary ---
Author Organization [facility] Address [address], [place] [address] Care Team Providers Care Digital Art Director Name Role Phone Franklin Squires MD Primary Care Provider Encounter Details Date Type Department Care Team (Late st Contact Info) Description 08/22/2014 Outside Hospital External to [facility] HOSP-D/C SUMMARY Social History Tobacco [...] filedocumented in this encounter Care Teams Digital Art Director Relationship Specialty Start Date End Date Franklin Squires MD 100 [facility] [place] [address] PCP - General Family Practice 03/08/16 documented as of this encounter
--- OUTSIDE RECORDS SUMMARY | 2024-06-16 12:35 | XMS_ITS | Encounter Summary ---
Author Organization [facility] Address [address], [place] [address] Care Team Providers Care Slat Basket Top Maker Name Role Phone Franklin Squires MD Primary Care Provider [phone] Encounter Details Date Type Department Care Team (Late st Contact Info) Description 06/11/2014 Correspondence [facility] 401 Physical Medicine 401 [facility] [place] [address] May Randle MD 295 [place] [address] [facility] Social History Tobacco Use [...] on filedocumented in this encounter Care Teams Slat Basket Top Maker Relationship Specialty Start Date End Date Franklin Squires MD 100 [facility] [place] [address] PCP - General Family Practice 03/08/16 documented as of this encounter
--- OUTSIDE RECORDS SUMMARY | 2024-06-16 12:35 | XMS_ITS | Encounter Summary ---
Author Organization [facility] Address [address] [address] Care Team Providers Care Middle School Guidance Counselor Name Role Phone Franklin Squires MD Primary Care Provider [phone] Encounter Details Date Type Department Care Team (Late st Contact Info) Description 09/17/2013 Correspondence External to External, [place] [address] EMPOWERMENT RULES Social History Tobacco Use Types [...] External, Provider - 09/17/2013 12:00 AM CST OLOGY PHYSICIAN documented in this encounter Plan of Treatment Not on file documented as of this encounter Visit Diagnoses Not on filedocumented in this encounter Care Teams Middle School Guidance Counselor Relationship Specialty Start Date End Date Franklin Squires MD 100 [facility] [place] [address] PCP - General Family Practice 03/08/16 documented as of this encounter
--- OUTSIDE RECORDS SUMMARY | 2024-06-16 12:35 | XMS_ITS | Encounter Summary ---
Author Organization [facility] Address [address], [place] [address] Care Team Providers Care Reimbursement Rep Name Role Phone Franklin Squires MD Primary Care Provider Encounter Details Date Type Department Care Team (Late st Contact Info) Description 01/08/2013 Scanned History External to Transferred Record, Provider [facility] Social History Tobacco Use [...] on filedocumented in this encounter Care Teams Reimbursement Rep Relationship Specialty Start Date End Date Franklin Squires MD 100 [facility] [place] [address] PCP - General Family Practice 03/08/16 documented as of this encounter
--- OUTSIDE RECORDS SUMMARY | 2024-06-16 12:35 | XMS_ITS | Encounter Summary ---
Author Organization [facility] Address [address] [address] Care Team Providers Care Litigation Secretary Name Role Phone Franklin Squires MD [...] on filedocumented in this encounter Care Teams Litigation Secretary Relationship Specialty Start Date End Date Franklin Squires MD 100 [facility] [place] [address] PCP - General Family Practice 03/08/16 documented as of this encounter
--- OUTSIDE RECORDS SUMMARY | 2024-06-16 12:35 | XMS_ITS | Encounter Summary ---
Author Organization [facility] Address [address] [address] Care Team Providers Care Operational Intelligence Analyst Name Role Phone Franklin Squires MD Primary Care Provider Encounter Details Date Type Department Care Team (Late st Contact Info) Description 07/28/2014 Outside Hospital External to External, Provider No address [address] ER VISIT/TRANSFER Social History Tobacco Use [...] on filedocumented in this encounter Care Teams Operational Intelligence Analyst Relationship Specialty Start Date End Date Franklin Squires MD 100 [facility] [place] [address] PCP - General Family Practice 03/08/16 documented as of this encounter
--- OUTSIDE RECORDS SUMMARY | 2024-06-16 12:35 | XMS_ITS | Encounter Summary ---
Author Organization [facility] Address [address], [place] [address] Care Team Providers Care Janitorial Cleaner Name Role Phone Franklin Squires MD Primary Care Provider Encounter Details Date Type Department Care Team (Late st Contact Info) Description 11/23/2015 Correspondence External to External, [place] [address] LETTER [facility] Social History Tobacco Use Types Packs/Day [...] on filedocumented in this encounter Care Teams Janitorial Cleaner Relationship Specialty Start Date End Date Franklin Squires MD [address] [place] [address] [place] [address] PCP - General Family Practice 03/08/16 documented as of this encounter
--- OUTSIDE RECORDS SUMMARY | 2024-06-16 12:35 | XMS_ITS | Encounter Summary ---
Author Organization [facility] [address], [place] [address] Care Team Providers Care Bottom Painter Name Role Phone Franklin Squires MD Primary Care Provider [phone] Encounter Details Date Type Department Care Team (Late st Contact Info) Description 11/10/2014 Correspondence [facility] Physical Therapy [address] [place] [address] Trudi Raymundo, PT [address] [place] [address] LETTER OF MEDICAL NECESSITY Social History Tobacco [...] on filedocumented in this encounter Care Teams Bottom Painter Relationship Specialty Start Date End Date Franklin Squires MD 100 [facility] [place] [address] PCP - General Family Practice 03/08/16 documented as of this encounter
--- OUTSIDE RECORDS SUMMARY | 2024-06-16 12:35 | XMS_ITS | Encounter Summary ---
Author Organization [facility] Address [address], [place] [address] Care Team Providers Care Project Structural Engineer Name Role Phone Franklin Squires MD Primary Care Provider Encounter Details Date Type Department Care Team (Late st Contact Info) Description 06/07/2015 Correspondence [facility] Radiology [address] [place] [address] Radiology, Provider MRI SAFETY SHEET AND COMPATIBILITY [...] on filedocumented in this encounter Care Teams Project Structural Engineer Relationship Specialty Start Date End Date Franklin Squires MD [address] [place], [place] [address] [address] PCP - General Family Practice 03/08/16 documented as of this encounter
--- OUTSIDE RECORDS SUMMARY | 2024-06-16 12:35 | XMS_ITS | Encounter Summary ---
Author Organization [facility] Address [address], [place] [address] Care Team Providers Care Recycling Operations Manager Name Role Phone Franklin Squires MD Primary Care Provider Encounter Details Date Type Department Care Team (Late st Contact Info) Description 08/20/2014 Outside Hospital External to [facility] HOSP-ADMIT H/P Social History Tobacco Use [...] filedocumented in this encounter Care Teams Recycling Operations Manager Relationship Specialty Start Date End Date Franklin Squires MD 100 [facility] [place] [address] PCP - General Family Practice 03/08/16 documented as of this encounter
--- OUTSIDE RECORDS SUMMARY | 2024-06-16 12:35 | XMS_ITS | Encounter Summary ---
Author Organization [facility] Address [address], [place] [address] Care Team Providers Care Industrial Psychologist Name Role Phone Franklin Squires MD Primary Care Provider [phone] Encounter Details Date Type Department Care Team [...] filedocumented in this encounter Care Teams Industrial Psychologist Relationship Specialty Start Date End Date Franklin Squires MD 100 [facility] [place] [address] PCP - General Family Practice 03/08/16 documented as of this encounter
--- OUTSIDE RECORDS SUMMARY | 2024-06-16 12:35 | XMS_ITS | Encounter Summary ---
Author Organization [facility] [address] [address] Care Team Providers Care Practice Representative Name Role Phone Franklin Squires MD Primary Care Provider [phone] Encounter Details Date Type Department Care Team (Late st Contact Info) Description 10/26/2013 Correspondence [facility] Physical Therapy [address] [place] [address] Trudi Raymundo, PT [address] [place] [address] LETTER OF MEDICAL NECESSITY Social History Tobacco [...] Raymundo, PT - 10/26/2013 12:00 AM CST PROVIDER RELATIONS documented in this encounter Plan of Treatment Not on file documented as of this encounter Visit Diagnoses Not on filedocumented in this encounter Care Teams Practice Representative Relationship Specialty Start Date End Date Franklin Squires MD 100 [facility] [place] [address] PCP - General Family Practice 03/08/16 documented as of this encounter
--- OUTSIDE RECORDS SUMMARY | 2024-06-16 12:35 | XMS_ITS | Encounter Summary ---
Author Organization [facility] Address [address], [place] [address] Care Team Providers Care Service Loss Control Consultant Name Role Phone Franklin Squires MD Primary Care Provider [phone] Encounter Details Date Type Department Care Team (Late st Contact Info) Description 12/14/2014 Correspondence [facility] 401 Physical Medicine 401 [place] [address] May Randle MD 295 [place] [address] DETAILED PRODUCT DESCRIPTION Social History Tobacco Use [...] filedocumented in this encounter Care Teams Service Loss Control Consultant Relationship Specialty Start Date End Date Franklin Squires MD 100 [facility] [place] [address] PCP - General Family Practice 03/08/16 documented as of this encounter
--- OUTSIDE RECORDS SUMMARY | 2024-06-16 12:35 | XMS_ITS | Encounter Summary ---
Author Organization [facility] Address [address] [address] Care Team Providers Care Real Estate Lawyer Name Role Phone Franklin Squires MD Primary Care Provider [phone] Encounter Details Date Type Department Care Team (Late st Contact Info) Description 05/04/2014 Correspondence [facility] 401 Physical Medicine 401 [place] [address] May Randle MD [address] [place] [address] LETTER OF MEDICAL NECESSITY FOR A WHEELCHAIR [...] in this encounter Care Teams Real Estate Lawyer Relationship Specialty Start Date End Date Franklin Squires MD 100 [facility] [place] [address] PCP - General Family Practice 03/08/16 documented as of this encounter
--- OUTSIDE RECORDS SUMMARY | 2024-06-16 12:35 | XMS_ITS | Encounter Summary ---
Author Organization [facility] Address [address], [place] [address] Care Team Providers Care Grain Trimmer Name Role Phone Franklin Squires MD Primary Care Provider Encounter Details Date Type Department Care Team (Late st Contact Info) Description 11/13/2012 Correspondence [facility] Radiology [address] [place] [address] Radiology, Provider MRI SAFETY SHEET AND COMPATIBILITY [...] PROVIDER - 11/13/2012 12:00 AM CST ER SOFTWARE ENGINEER documented in this encounter Plan of Treatment Not on file documented as of this encounter Visit Diagnoses Not on filedocumented in this encounter Care Teams Grain Trimmer Relationship Specialty Start Date End Date Franklin Squires MD 100 [facility] [place] [address] PCP - General Family Practice 03/08/16 documented as of this encounter
--- OUTSIDE RECORDS SUMMARY | 2024-06-16 12:35 | XMS_ITS | Encounter Summary ---
Author Organization [facility] Address [address], [place] [address] Care Team Providers Care Membership Advisor Name Role Phone Franklin Squires MD Primary Care Provider [phone] Encounter Details Date Type Department Care Team (Latest Contact Info) Description 06/04/2014 [facility] [address] [facility] [place] [address] Zelalem Cohen, DO [address] [place] [address] MEDICAID PT INFORMATION EMPI RECOVERY Social History [...] on filedocumented in this encounter Care Teams Membership Advisor Relationship Specialty Start Date End Date Franklin Squires MD [address] [facility] [address] PCP - General Family Practice 03/08/16 documented as of this encounter
== END 2024-06-15 12:46 | disposition home or self-care (01) ==
LOC: WOUND 06-16 12:32
PROVIDERS: PCP Family Medicine; Visit Provider Nurse Practitioner Family
DX: L89.324 Pressure ulcer of left buttock, stage 4 (principal); E11.622 Type 2 diabetes mellitus with other skin ulcer; G82.50 Quadriplegia, unspecified
CPT/HCPCS: 11042

== ENCOUNTER 2024-06-22 12:45 | Outpatient (CLI) | payer MEDICARE, OTHER, SELFPAY ==
--- OUTSIDE RECORDS SUMMARY | 2024-06-22 12:47 | XMS_ITS | Clinical Summary ---
Author Organization [facility] Address [address] [place] [address] Care Team Providers Care Purchase Price Analyst Name Role Phone Franklin Squries MD Primary Care Provider [phone] Source Comments You are receiving this document [...] for each transition of care or referral. 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 Temperature 36.3 ??C (97.4 ??F) 01/18/2022 12:59 [...] this topic Medical Devices Implanted Type Area Organ Pipe Finisher Device Identifier Shelf Expiration Date Model / Serial / Lot [id number] 4ml Tisseel Explanted:([place] ntity not on file) BIOLOGIC N/A: NECK Lynne Fenwall 09/10/2011 [id number] / [id number] / [id number] Description:posterior Cath Intrathecal Indura - [id number] Implanted:Qty: 1 on 05/09/2010 at [facility] DEVICE Right: LUMBAR SPINE [employer] 01/18/2012 8709 / N/A / [id number] Cath Intrathecal Indura - [id number] Implanted:Qty: 1 on 05/29/2010 at [facility] DEVICE I[employer] Software 8709 / / Scr Indira Conic 7.3x80 - [id number] Implanted:Qty: 1 on 03/13/2011 at [facility] DEVICE Right: FEMUR DISTAL [employer] 02.207.28 0 / NONE / NONE Plt Lcp Cndl Rt 4.5x170 6h - [id number] Implanted:Qty: 1 on 03/13/2011 at [facility] DEVICE Right: FEMUR DISTAL [employer] 222.656 / NONE / NONE Description:6 hole 170mm rig ht 4.5mm lcp condylar plate Scr Didier Ss Sftp 4.5x40 - [id number] Implanted:Qty: 1 on 03/13/2011 at [facility] DEVICE Left: FEMUR DISTAL [employer] 214.840 / NONE / NONE Scr Didier Ss Sftp 4.5x50 - [id number] Implanted:Qty: 1 on 03/13/2011 at [facility] DEVICE Left: FEMUR DISTAL [employer] 214.850 / NONE / NONE Scr Indira Lk 5.0x80 - [id number] Implanted:Qty: 2 on 03/13/2011 at [facility] DEVICE Left: FEMUR DISTAL [employer] 02.205.08 0 / NONE / NONE Scr Indira Lk 5.0x85 - [id number] Implanted:Qty: 2 on 03/13/2011 at [facility] DEVICE Left: FEMUR DISTAL [employer] 02.205.08 5 / NONE / NONE Scr Lk Sftp T25 5.0x50 - [id number] Implanted:Qty: 1 on 03/13/2011 at [facility] DEVICE Left: FEMUR DISTAL [employer] 212.219 / NONE / NONE Scr Lk Sftp T25 5.0x60 - [id number] Implanted:Qty: 1 on 03/13/2011 at [facility] DEVICE Left: FEMUR DISTAL [employer] 212.221 / NONE / NONE Scr Indira Conic 7.3x85 - [id number] Implanted:Qty: 1 on 03/13/2011 at [facility] DEVICE Left: FEMUR DISTAL [employer] 02.207.28 5 / NONE / NONE Plt Lcp Cndl Lt 4.5x170 6h - [id number] Implanted:Qty: 1 on 03/13/2011 at [facility] DEVICE Left: FEMUR DISTAL [employer] 222.657 / NONE / NONE Description:6 hole 170mmleng th left 4.5mm lcp condylar plate. Scr Didier Sftp 3.5x60 F-Thrd - [id number] Implanted:Qty: 1 on 03/13/2011 at [facility] DEVICE Left: TIBIA PROXIMAL [employer] 204.860 / NONE / NONE Scr Star Lk Sftp 3.5x32 - [id number] Implanted:Qty: 1 on 03/13/2011 at [facility] DEVICE Left: TIBIA PROXIMAL [employer] 212.112 / NONE / NONE Scr Star Lk Sftp 3.5x55 - [id number] Implanted:Qty: 2 on 03/13/2011 at [facility] DEVICE Left: TIBIA PROXIMAL [employer] 212.123 / NONE / NONE Scr Star Lk Sftp 3.5x60 - [id number] Implanted:Qty: 2 on 03/13/2011 at [facility] DEVICE Left: TIBIA PROXIMAL [employer] 212.124 / NONE / NONE Plt Lcp M/Prox Lt 3.5x94 4h - [id number] Implanted:Qty: 1 on 03/13/2011 at [facility] DEVICE Left: TIBIA PROXIMAL [employer] 239.955 / NONE / NONE Scr Didier Ss Sftp 4.5x36 - [id number] Implanted:Qty: 1 on 03/13/2011 at [facility] DEVICE Right: FEMUR DISTAL [employer] 214.836 / NONE / NONE Scr Didier Ss Sftp 4.5x44 - [id number] Implanted:Qty: 1 on 03/13/2011 at [facility] DEVICE Right: FEMUR DISTAL [employer] 214.844 / NONE / NONE Scr Indira Lk 5.0x75 - [id number] Implanted:Qty: 1 on 03/13/2011 at [facility] DEVICE Right: FEMUR DISTAL [employer] 02.205.07 5 / NONE / NONE Scr Indira Lk 5.0x85 - [id number] Implanted:Qty: 2 on 03/13/2011 at [facility] DEVICE Right: FEMUR DISTAL [employer] 02.205.08 5 / NONE / NONE Scr Lk Sftp T25 5.0x44 - [id number] Implanted:Qty: 1 on 03/13/2011 at [facility] DEVICE Right: FEMUR DISTAL [employer] 212.216 / NONE / NONE Scr Lk Sftp T25 5.0x65 - [id number] Implanted:Qty: 1 on 03/13/2011 at [facility] DEVICE Right: FEMUR DISTAL [employer] 212.222 / NONE / NONE Plt Lp T Ti Str 4h - [id number] Implanted:Qty: 3 on 07/28/2014 by Cooper Shelley MD at [facility] DEVICE Right: SKULL [employer] 421.504 / / Scr Matrix Sfdr 4mm - [id number] Implanted:Qty: 6 on 07/28/2014 by Cooper Shelley MD at [facility] DEVICE Right: SKULL [employer] [place] 04.503.10 4.01 / / Lead Linear 3-4 8 Contact 50cm - [id number] Implanted:Qty: 1 on 03/08/2016 by Zelalem Cohen DO at [facility] DEVICE N/A: OTHER-SEE DESCRIPTION [facility] 09/10/2017 [id number] 2500 / / [id number] Description:LUMBAR Lead Linear 3-4 8 Contact 50cm - [id number] Implanted:Qty: 1 on 03/08/2016 by Zelalem Cohen DO at [facility] DEVICE N/A: OTHER-SEE DESCRIPTION [facility] [facility] 09/10/2017 [id number] 2500 / / [id number] Description:LUMBAR Lead Linear 3-4 8 Contact 50cm - [id number] Implanted:Qty: 1 on 03/08/2016 by eZlalem Cohen DO at [facility] DEVICE N/A: OTHER-SEE DESCRIPTION [facility] 09/10/2017 [id number] 2500 / / [id number] Description:LUMBAR Lead Linear 3-4 8 Contact 50cm - [id number] Implanted:Qty: 1 on 03/08/2016 by Zelalem Cohen DO at [facility] DEVICE N/A: OTHER-SEE DESCRIPTION [facility] 09/10/2017 [id number] 2500 / / [id number] Description:LUMBAR Lead Linear 3-4 8 Contact 50cm - [id number] Implanted:Qty: 1 on 05/24/2016 by Zelalem Cohen DO at [facility] DEVICE N/A: SPINE LUMBAR POSTERIOR [facility] 01/31/2018 [id number] 2500 / [id number] / Lead Linear 3-4 8 Contact 50cm - [id number] Implanted:Qty: 1 on 05/24/2016 by Zelalem Cohen DO at [facility] DEVICE N/A: SPINE LUMBAR POSTERIOR [facility] 04/26/2018 [id number] 2500 / [id number] / Lead Linear 3-4 8 Contact 50cm - [id number] Implanted:Qty: 1 on 05/24/2016 by Zelalem Cohen DO at [facility] DEVICE N/A: SPINE LUMBAR POSTERIOR [facility] 04/26/2018 [id number] 2500 / [id number] / Lead Linear 3-4 8 Contact 50cm - [id number] Implanted:Qty: 1 on 05/24/2016 by Zelalem Cohen DO at [facility] DEVICE N/A: SPINE LUMBAR POSTERIOR [facility] 04/26/2018 [id number] 2500 / [id number] / Generator Pulse Spectra - [id number] Implanted:Qty: 1 on 05/24/2016 by Zelalem Cohen DO at [facility] DEVICE N/A: SPINE LUMBAR POSTERIOR [facility] 05/08/2018 [id number] / [id number] / [id number] [employer] - [id number] Implanted:Qty: 1 on 05/24/2016 by Zelalem Cohen DO at [facility] DEVICE N/A: SPINE LUMBAR POSTERIOR [facility] 05/02/2018 [id number] 60 / / [id number] [employer] - [id number] Implanted:Qty: 1 on 05/24/2016 by Zelalem Cohen DO at [facility] DEVICE N/A: SPINE LUMBAR POSTERIOR [facility] 02/28/2018 [id number] 60 / / [id number] Procedures Procedure Name Priority Date/Time Associated Diagnosis Comments CREATININE/GFR, WB POC Routine 01/06/2016 12:04 PM 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 HARDENING MACHINE SETTER Back pain, 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 HGB A1C Routine 07/29/2014 3:19 AM CDT from Last 3 Months or Most Recently Relevant to Health Maintenance Results * CREATININE/GFR, WB POC (01/06/2016 12:04 PM FLAME HARDENING MACHINE SETTER) Creat Whole Blood 0.9 0.66 - 1.25 mg/dl [facility] GFR, Estimated >60 >60 ml/min/1.7 3m2 [facility] GFR, Est., If Black >60 >60 ml/min/1.7 3m2 [facility] 01/06/2016 12:0 4 PM FLAME HARDENING MACHINE SETTER 01/06/2016 12:21 PM FLAME HARDENING MACHINE SETTER Trae Blair MD LAB_[facility] [phone] * (ABNORMAL) HGB A1C (07/29/2014 3:19 AM CDT) Hgb A1c 6.4(H) 4.3 - 6.1 % [facility] Comment: The usual A1C goal for people with diabetes, age 18-75, is <8.0%. Physicians may recommend a higher or lower goal for specific individuals. 07/29/2014 3:19 AM CDT 07/29/2014 3:22 AM CDT [facility] - 07/29/2014 12:53 PM CDT Performed at [facility], [address] ??[address] [place] Wei PA-C LAB_[address] [address] from Last 3 Months or Most Recently [...] 5:44 PM 07/28/2014 6:50 PM Care Teams Purchase Price Analyst Relationship Specialty Start Date End Date Franklin Squires MD [address] [facility] [address] [place] [address] PCP - General Family Practice 03/08/16
--- OUTSIDE RECORDS SUMMARY | 2024-06-22 12:47 | XMS_ITS ---
Author Organization [facility] Address [address], [place] [address] Care Team Providers Care Entry Operator Name Role Phone Franklin Squires MD [...]
--- OUTSIDE RECORDS SUMMARY | 2024-06-22 12:47 | XMS_ITS | Continuity of Care Document ---
Author Name [facility] Organization [facility] Care Team Providers Care Leather Stretcher Name Role Phone [facility] Unavailable Unavailable Problems Combined list of problems from 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 It does not include entries that were removed or entered in error. Problem Status Onset Date Problem Type Date of Resolution Comments Source Abnormal liver function Active Condition [facility] Anemia (SCT 942361040) Active Condition [facility] Anxiety ([facility] 93626475) Active Condition [facility] Autonomic dysreflexia Active Condition [facility] Chronic Pain Syndrome (SCT 174183927) Active Condition [facility] Colostomy present Active Condition [facility] Constipation (S[facility] 05968295) Active Condition [facility] Continuous opioid dependence Active Condition [facility] COPD - Chronic Obstructive Pulmonary Disease (SCT 50740651) Active Condition [facility] Dementia Active Condition [facility] Depression ([facility] 98568565) Active Condition [facility] Diabetes Mellitus Type 2 (SCT 98871178) Active Condition [facility] Ependymoma of spinal cord Active Condition [facility] Hearing Loss (S[facility] 49621633) Active Condition [facility] History of Deep Vein Thrombosis (SCT 962320932) Active Condition [facility] History of pressure injury Active Condition [facility] HTN - Hypertension (SCT 16626683) Active Condition [facility] Hyperlipidemia (S[facility] 50648442) Active Condition [facility] Hyponatremia Active Condition [facility] Long-term current use of anticoagulant Active Condition [facility] Neurogenic Bladder ([facility] 435830826) Active Condition [facility] Neurogenic bowel Active Condition [facility] Osteoporosis ([facility] 14530287) Active Condition [facility] Paraplegia Active Condition [facility] Spasticity Active Condition [facility] Suprapubic urinary catheter in situ Active Condition [facility] Supraventricular tachycardia Active Condition [facility] Tinnitus ([facility] 63793891) Active Condition [facility] Vitamin D Deficiency ([facility] 7361955) Active Condition [facility] Diagnosis: ICD-10-CM Z73.6 Limitation of activities due to disability Active Diagnosis [facility] Diagnosis: ICD-10-CM G82.20 Paraplegia, unspecified Active Diagnosis [facility] Diagnosis: ICD-10-CM Z43.3 Encounter for attention to colostomy Active Diagnosis [facility] Diagnosis: ICD-10-CM Z71.3 Dietary counseling and surveillance Active Diagnosis [facility] Diagnosis: ICD-10-CM F32.A Depression, unspecified Active Diagnosis [facility] Medications Combined list of outpatient medications from [...] ed by: PIPO BARRETT Document ed at: [facility] ORAL ACTIVE Jagdish BARRETT 2022 [facility] AMLODIPINE BESYLATE (AMLODIPINE BESYLATE), 5 MG, TABLET, ORAL, [employer] 1000 ea. BOTTLE Active [id number] 2023 90 Pharmac y Data Transac tion Service Facilit y AMLODIPINE BESYLATE (amlodipine besylate), 5 MG, TABLET, ORAL, [employer]IN [employer]ARMACE[employer], 1000 ea. BOTTLE Active [id number] 2023 90 Pharmac y Data Transac tion Service Facilit y AMLODIPINE BESYLATE 2.5MG TAB AMLODIPI NE BESYLATE 2.5MG TAB Non-VA TAKE TWO TABLETS BY MOUTH EVERY MORNING Feb 05, 2023 Non-VA Document ed by: PIPO BARRETT Document ed at: [facility] ORAL ACTIVE Jagdish BARRETT 2022 [facility] AMOX TR-POTASSIU M CLAVULANATE (AMOXICILLI N/POTASSIUM CLAV), 875-125 MG, TABLET, ORAL, [employer]EVA [place], 20 ea. BOTTLE Active [id number] 2022 14 Pharmac y Data Transac tion Service Facilit y AMOXICILLIN -CLAVULANAT E POTASS (amoxicilli n/potassium clavulanate ), 875-125 MG, TABLET, ORAL, [employer] [place],, 20 ea. BOTTLE Active [id number] 2023 20 Pharmac y Data Transac tion Service Facilit y AMOXICILLIN -CLAVULANAT E POTASS (amoxicilli n/potassium clavulanate ), 875-125 MG, TABLET, ORAL, [employer] [place],, 20 ea. BOTTLE Active [id number] 2023 56 Pharmac y Data Transac tion Service Facilit y ARIPIPRAZOL E (aripiprazo le), 2 MG, TABLET, ORAL, XLCARE PHARMACE, 500 ea. BOTTLE Active [id number] 2023 180 Pharmac y Data Transac tion Service Facilit y ARIPIPRAZOL E (aripiprazo le), 2 MG, TABLET, ORAL, [employer] PHARMACE, 500 ea. BOTTLE Active [id number] 2023 180 Pharmac y Data Transac tion Service Facilit y ARIPIPRAZOL E TAB ARIPIPRA ZOLE TAB Non-VA TAKE 2MG BY MOUTH TWICE A DAY May 29, 2022 Non-VA Document ed by: SHANTAL HANSON Document ed at: [facility] ORAL ACTIVE Jey HANSON 2021 [facility] ATIVAN (LORAZEPAM) , 0.5 MG, TABLET, ORAL, VALEANT, 100 ea. BOTTLE Active [id number] 2023 120 Pharmac y Data Transac [...] BIOCON PHARMA I, 1000 ea. BOTTLE Active [id number] 2023 90 Pharmac y Data Transac tion Service Facilit y ATORVASTATI N CALCIUM (atorvastat in calcium), 40 MG, TABLET, ORAL, BIOCON PHARMA I, 1000 ea. BOTTLE Active [id number] 2023 90 Pharmac y Data Transac tion Service Facilit y BACLOFEN (baclofen), 20 MG, TABLET, ORAL, MARLEX [employer]ARM., 1000 ea. BOTTLE Active [id number] 2023 540 Pharmac y Data Transac tion Service Facilit y BACLOFEN (baclofen), 20 MG, TABLET, ORAL, [employer]., 1000 ea. BOTTLE Active [id number] 2023 540 Pharmac y Data Transac tion Service Facilit y BACLOFEN 20MG TAB BACLOFEN 20MG TAB Non-VA TAKE TWO TABLETS BY MOUTH THREE TIMES A DAY Feb 05, 2023 Non-VA Document ed by: PIPO BARRETT Document ed at: [facility] ORAL ACTIVE Jagdish BARRETT [address] [facility] BUPROPION HCL 150MG 12HR TAB,SA BUPROPIO N HCL 150MG 12HR TAB,SA Non-VA TAKE ONE TABLET BY MOUTH TWICE A DAY May 29, 2022 Non-VA Document ed by: SHANTAL HANSON Document ed at: [facility] ORAL ACTIVE Jey HANSON 2021 [facility] BUPROPION HCL SR (bupropion HCl), 150 MG, TAB SR 12H, ORAL, PAVEL PHARMACEU, 60 ea. BOTTLE Active [id number] 2023 180 Pharmac y Data Transac tion Service Facilit y BUPROPION HCL SR (bupropion HCl), 150 MG, TAB SR 12H, ORAL, PAVEL PHARMACEU, 60 ea. BOTTLE Active [id number] 2023 180 Pharmac y Data Transac [...] ed at: [facility] ORAL ACTIVE Jey HNASON 2021 [facility] CIPROFLOXAC IN HCL (CIPROFLOXA SHAR HCL), 750 MG, TABLET, ORAL, AUROBINDO PHARM, 50 ea. BOTTLE Active [id number] 2023 70 Pharmac y Data Transac tion Service Facilit y DONEPEZIL HCL (DONEPEZIL HCL), 5 MG, TABLET, ORAL, [employer] 1000 ea. BOTTLE Active [id number] 2023 90 Pharmac y Data Transac tion Service Facilit y DONEPEZIL HCL (DONEPEZIL HCL), 5 MG, TABLET, ORAL, [employer] 1000 ea. BOTTLE Cancele d [id number] : 2023 0 Pharmac y Data Transac tion Service Facilit y DONEPEZIL HCL (DONEPEZIL HCL), 5 MG, TABLET, ORAL, [employer] 1000 ea. BOTTLE Active [id number] 2023 90 Pharmac y Data Transac tion Service Facilit y DONEPEZIL HCL 10MG TAB DONEPEZI L HCL 10MG TAB Non-VA TAKE ONE-HALF TABLET BY MOUTH EVERY DAY May 29, 2022 Non-VA Document ed by: SHANTAL HANSON Document ed at: [facility] ORAL ACTIVE Jey HANSON 2021 [facility] DULOXETINE HCL (duloxetine HCl), 60 MG, CAPSULE DR, ORAL, [employer] 1000 ea. BOTTLE Active [id number] 2023 180 Pharmac y Data Transac tion Service Facilit y DULOXETINE HCL (duloxetine HCl), 60 MG, CAPSULE DR, ORAL, [employer] 1000 ea. BOTTLE Active [id number] 2023 180 Pharmac y Data Transac tion Service Facilit y DULOXETINE HCL 30MG CAP,EC DULOXETI NE HCL 30MG CAP,EC Non-VA TAKE 2 CAPSULES BY MOUTH TWICE A DAY May 29, 2022 Non-VA Document ed by: SHANTAL HANSON Document ed at: [facility] ORAL ACTIVE Jey HANSON 2021 [facility] FAMOTIDINE (famotidine ), 20 MG, TABLET, ORAL, [employer] 1000 ea. BOTTLE Active [id number] 2023 180 Pharmac y Data Transac tion Service Facilit y FAMOTIDINE 20MG TAB FAMOTIDI NE 20MG TAB Non-VA TAKE ONE TABLET BY MOUTH TWICE A DAY May 29, 2022 Non-VA Document ed by: SHANTAL HANSON Document ed at: [facility] ORAL ACTIVE Jey HANSON 2021 [facility] FUROSEMIDE (furosemide ), 40 MG, TABLET, ORAL, [employer], 1000 ea. BOTTLE Active [id number] 2023 180 Pharmac y Data Transac tion Service Facilit y FUROSEMIDE 40MG TAB FUROSEMI DE 40MG TAB Non-VA TAKE ONE TABLET BY MOUTH TWICE A DAY May 29, 2022 Non-VA Document ed by: SHANTAL HANSON Document ed at: [facility] ORAL ACTIVE Jey HANSON 2021 [facility] GABAPENTIN (gabapentin ), 400 MG, CAPSULE, ORAL, [employer] 500 ea. BOTTLE Active [id number] 2023 270 Pharmac y Data Transac tion Service Facilit y GABAPENTIN (gabapentin ), 400 MG, CAPSULE, ORAL, [employer]EGEN PHARMAC, 500 ea. BOTTLE Active [id number] 2023 270 Pharmac y Data Transac tion Service Facilit y GABAPENTIN (gabapentin ), 400 MG, CAPSULE, ORAL, XLCARE PHARMACE, 500 ea. BOTTLE Cancele d [id number] : 2023 0 Pharmac y Data Transac [...] ORAL, AUROBINDO PHARM, 500 ea. BOTTLE Active [id number] 2023 120 Pharmac y Data Transac tion Service Facilit y LORAZEPAM (lorazepam) , 0.5 MG, TABLET, ORAL, LEADING [employer]ARMA, 1000 ea. BOTTLE Active [id number] 2023 120 Pharmac y Data Transac tion Service Facilit y LORAZEPAM (lorazepam) , 0.5 MG, TABLET, ORAL, LEADING PHARMA, 1000 ea. BOTTLE Active [id number] 2023 120 Pharmac y Data Transac tion Service Facilit y LORAZEPAM (lorazepam) , 0.5 MG, TABLET, ORAL, LE[employer] PHARMA, 1000 ea. BOTTLE Active [id number] 2023 120 Pharmac y Data Transac tion Service Facilit y LORAZEPAM (lorazepam) , 0.5 MG, TABLET, ORAL, LEADING PHARMA, 500 ea. BOTTLE Active [id number] 2023 120 Pharmac y Data Transac tion Service Facilit y LORAZEPAM 0.5MG TAB LORAZEPA M 0.5MG TAB Non-VA TAKE ONE TABLET BY MOUTH THREE TIMES A DAY AND TAKE TWO TABLETS BY MOUTH AT BEDTIME Feb 05, 2023 Non-VA Document ed by: PIPO BARRETT Document ed at: [facility] ORAL ACTIVE Jagdish BARRETT 2022 [facility] [employer] [...] ed by: PIPO BARRETT Document ed at: [facility] NASAL ACTIVE Jagdish BARRETT 2022 [facility] OXYCODONE HCL (OXYCODONE HCL), 10 MG, TABLET, ORAL, [employer] 100 ea. BOTTLE Active [id number] 2023 120 Pharmac y Data Transac tion Service Facilit y OXYCODONE HCL (OXYCODONE HCL), 10 MG, TABLET, ORAL, [employer] 100 ea. BOTTLE Active [id number] 2023 120 Pharmac y Data Transac tion Service Facilit y OXYCODONE HCL (OXYCODONE HCL), 10 MG, TABLET, ORAL, [employer] 100 ea. BOTTLE Active [id number] 2023 120 Pharmac y Data Transac tion Service Facilit y OXYCODONE HCL (OXYCODONE HCL), 10 MG, TABLET, ORAL, [employer] 100 ea. BOTTLE Active [id number] 2023 120 Pharmac y Data Transac tion Service Facilit y OXYCODONE HCL (OXYCODONE HCL), 10 MG, TABLET, ORAL, [employer] 100 ea. BOTTLE Active [id number] 2023 120 Pharmac y Data Transac tion Service Facilit y OXYCODONE HCL (OXYCODONE HCL), 10 MG, TABLET, ORAL, [employer] 100 ea. BOTTLE Active [id number] 2023 120 Pharmac y Data Transac tion Service Facilit y OXYCODONE HCL (OXYCODONE HCL), 10 MG, TABLET, ORAL, [employer] 100 ea. BOTTLE Active [id number] 2022 120 Pharmac y Data Transac tion Service Facilit y OXYCODONE HCL 5MG TAB OXYCODON E HCL 5MG TAB Non-VA TAKE TWO TABLETS BY MOUTH FOUR TIMES A DAY Feb 05, 2023 Non-VA Document ed by: PIPO BARRETT Document ed at[facility] Jagdish BARRETT 2022 [facility] POTASSIUM CHLORIDE (potassium chloride), 10 MEQ, TAB ER PRT, ORAL, XLC[employer] PHARMACE, 100 ea. BOTTLE Active [id number] 2023 180 Pharmac y Data Transac tion Service Facilit y POTASSIUM CHLORIDE (potassium chloride), 10 MEQ, TAB ER PRT, ORAL, [employer] PHARMACE, 100 ea. BOTTLE Active [id number] 2023 180 Pharmac y Data Transac tion Service Facilit y POTASSIUM CHLORIDE (potassium chloride), 20 MEQ, TAB ER PRT, ORAL, [employer] PHARMACE, 100 ea. BOTTLE Active [id number] 2023 90 Pharmac y Data Transac [...] WHITLOCK&N/UNI LUIS, 30 g TUBE Cancele d [id number] : 2023 0 Pharmac y Data Transac tion Service Facilit y WARFARIN SODIUM (warfarin sodium), 5 MG, TABLET, ORAL, [employer] 1000 ea. BOTTLE Cancele d [id number] : 2022 0 Pharmac y Data Transac tion Service Facilit y WARFARIN SODIUM (WARFARIN SODIUM), 5 MG, TABLET, ORAL, [employer] [place], 1000 ea. BOTTLE Active [id number] 2023 25 Pharmac y Data Transac tion Service Facilit y WARFARIN SODIUM (WARFARIN SODIUM), 5 MG, TABLET, ORAL, [employer] [place], 1000 ea. BOTTLE Active [id number] 2023 12 Pharmac y Data Transac tion Service Facilit y WARFARIN SODIUM (WARFARIN SODIUM), 5 MG, TABLET, ORAL, [employer] [place], 1000 ea. BOTTLE Active [id number] 2023 40 Pharmac y Data Transac tion Service Facilit y WARFARIN SODIUM (WARFARIN SODIUM), 5 MG, TABLET, ORAL, [employer] [place], 1000 ea. BOTTLE Cancele d [id number] : 2022 0 Pharmac y Data Transac tion Service Facilit y WARFARIN SODIUM (warfarin sodium), 7.5 MG, TABLET, ORAL, [employer] [place], 100 ea. BOTTLE Active [id number] 2023 51 Pharmac y Data Transac tion Service Facilit y WARFARIN SODIUM (warfarin sodium), 7.5 MG, TABLET, ORAL, [employer] [place], 100 ea. BOTTLE Active [id number] 2023 78 Pharmac y Data Transac tion Service Facilit y WARFARIN TAB WARFARIN TAB Non-VA TAKE 5MG BY MOUTH SUN/THUR S AND TAKE 7.5MG BY MOUTH ALL OTHER DAYS Feb 05, 2023 Non-VA Document ed by: PIPO BARRETT Document ed at: [facility] ORAL ACTIVE Jagdish BARRETT 2022 [facility] Allergies, Adverse Reactions, Alerts Combined list of allergies from 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 It does not include entries that were removed or entered in error. Substance Category Reaction Severity Reaction type Status Date Reported Comments Source AMOXICILLIN Propensity to adverse reactions to drug (finding) Eruption active 2 [facility] METOLAZONE Propensity to adverse reactions to drug (finding) Itching active 2 [facility] MORPHINE Propensity to adverse reactions to drug (finding) Delirium active 2 [facility] PIPERACILLIN Propensity to adverse reactions to drug (finding) Eruption active 2 [facility] SULFA DRUGS Propensity to adverse reactions to drug (finding) Eruption active 2 [facility] TAZOBACTAM SODIUM Propensity to adverse reactions to drug (finding) Eruption active 2 [facility] Immunizations Combined list of available immunizations from the 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 Immunization Series Date Given Administered By Site Reaction Lot Number CVX Code Drug Spa Experience Coordinator Status Comments Source COVID-19 ([facility]), MRNA, LNP-S, BIVALENT, PF, 30 MCG/0.3 ML DOSE 2021 300 complet ed [facility] INFLUENZA, ADJUVANTED, QUADRIVALENT, PF 2021 205 complet ed [facility] INFLUENZA, UNSPECIFIED FORMULATION 2021 88 complet ed 's recall [facility] TD (ADULT), 5 LF TETANUS TOXOID, PRESERVATIVE FREE, ADSORBED 2021 113 complet ed [facility] INFLUENZA, ADJUVANTED, QUADRIVALENT, PF 2020 205 complet ed [facility] INFLUENZA, UNSPECIFIED FORMULATION 2020 88 complet ed [facility] COVID-19 ([facility]), MRNA, LNP-S, PF, 30 MCG/0.3 ML DOSE 3 2020 208 complet ed [facility] COVID-19 ([facility]), MRNA, LNP-S, PF, 30 MCG/0.3 ML DOSE 2 2020 208 complet ed [facility] COVID-19 (PFIZER), MRNA, LNP-S, PF, 30 MCG/0.3 ML DOSE 1 2020 208 complet ed [facility] INFLUENZA, ADJUVANTED, QUADRIVALENT, PF 2019 205 complet ed [facility] INFLUENZA, ADJUVANTED, TRIVALENT, PF 2018 168 complet ed [facility] INFLUENZA, ADJUVANTED, TRIVALENT, PF 2017 168 complet ed [facility] INFLUENZA, HIGH-DOSE, TRIVALENT, PF 2016 135 complet ed [facility] INFLUENZA, ADJUVANTED, TRIVALENT, PF 2016 168 complet ed [facility] INFLUENZA, HIGH-DOSE, TRIVALENT, PF 2015 135 complet ed [facility] ZOSTER LIVE 2015 121 complet ed [facility] PNEUMOCOCCAL CONJUGATE PCV 13 2014 133 complet ed [facility] INFLUENZA, HIGH-DOSE, TRIVALENT, PF 2014 135 complet ed [facility] INFLUENZA, HIGH-DOSE, TRIVALENT, PF 2013 135 complet ed [facility] INFLUENZA, UNSPECIFIED FORMULATION 2013 88 complet ed [facility] INFLUENZA, SPLIT VIRUS, TRIVALENT, PRESERVATIVE 2012 141 complet ed [facility] ZOSTER LIVE 2012 121 complet ed [facility] INFLUENZA, SPLIT VIRUS, TRIVALENT, PRESERVATIVE 2011 141 complet ed [facility] INFLUENZA, SPLIT VIRUS, TRIVALENT, PF 2010 140 complet ed [facility] PNEUMOCOCCAL POLYSACCHARID E PPV23 2010 33 complet ed [facility] TDAP 2010 115 complet ed [facility] INFLUENZA, SPLIT VIRUS, TRIVALENT, PRESERVATIVE 2009 141 complet [facility] NOVEL INFLUENZA-H1N 1-09, ALL FORMULATIONS 2009 128 complet ed [facility] INFLUENZA, SPLIT VIRUS, TRIVALENT, PF 2008 140 complet ed [facility] PNEUMOCOCCAL POLYSACCHARID E PPV23 2008 33 complet ed [facility] INFLUENZA, SPLIT VIRUS, TRIVALENT, PRESERVATIVE 2008 141 complet ed [facility] INFLUENZA, SPLIT VIRUS, TRIVALENT, PRESERVATIVE 2007 141 complet ed [facility] INFLUENZA, SPLIT VIRUS, TRIVALENT, PRESERVATIVE 2005 141 complet ed [facility] INFLUENZA, SPLIT VIRUS, TRIVALENT, PRESERVATIVE 2004 141 complet ed [facility] PNEUMOCOCCAL POLYSACCHARID E PPV23 2004 33 complet ed [facility] INFLUENZA, SPLIT VIRUS, TRIVALENT, PRESERVATIVE 2003 141 complet ed [facility] Results Combined list of recent [...] 03:10 PM Reporting Lab: [facility] [address] Performing Lab: [facility] [address] [place] [facility] BASIC METABOLI C PANEL+MG UREA NITROGEN [MASS/VOLU ME] IN SERUM OR PLASMA 15 mg/dL 8 - 02/13 Specimen Type: PLASMA No comment entered. Ordering Provider: ANKUSH BOWMAN Report Released Date/Time: Feb 05, 2023 03:10 PM Reporting Lab: [facility] [address] Performing Lab: [facility] [address] [place] [facility] BASIC METABOLI C PANEL+MG GLUCOSE [MASS/VOLU ME] IN SERUM OR PLASMA 140 mg/dL 70 - 100 02/13 H Specimen Type: PLASMA No comment entered. Ordering Provider: ANKUSH BOWMAN Report Released Date/Time: Feb 05, 2023 03:10 PM Reporting Lab: [facility] [address] Performing Lab: [facility] [address] [place] [facility] BASIC METABOLI C PANEL+MG SODIUM [MOLES/VOL UME] IN SERUM OR PLASMA 135 mmol/L 136 - 145 04/05 /2023 L Specimen Type: PLASMA No comment entered. Ordering Provider: ANKUSH BOWMAN Report Released Date/Time: Feb 05, 2023 03:10 PM Reporting Lab: [facility] [address] Performing Lab: [facility] [address] [place] [facility] BASIC METABOLI C PANEL+MG POTASSIUM [MOLES/VOL UME] IN SERUM OR PLASMA 4.0 mmol/L 3.5 - 5.1 02/13 Specimen Type: PLASMA No comment entered. Ordering Provider: ANKUSH BOWMAN Report Released Date/Time: Feb 05, 2023 03:10 PM Reporting Lab: [facility] [address] Performing Lab: [facility] [address] [place] [facility] BASIC METABOLI C PANEL+MG CHLORIDE [MOLES/VOL UME] IN SERUM OR PLASMA 99 mmol/L 98 - 107 02/13 Specimen Type: PLASMA No comment entered. Ordering Provider: ANKUSH BOWMAN Report Released Date/Time: Feb 05, 2023 03:10 PM Reporting Lab: [facility] [address] Performing Lab: [facility] [address] [place] [facility] BASIC METABOLI C PANEL+MG CARBON DIOXIDE, TOTAL [MOLES/VOL UME] IN SERUM OR PLASMA 29 mmol/L 22 - 29 02/13 Specimen Type: PLASMA No comment entered. Ordering Provider: ANKUSH BOWMAN Report Released Date/Time: Feb 05, 2023 03:10 PM Reporting Lab: [facility] [address] Performing Lab: [facility] [address] [place] [facility] BASIC METABOLI C PANEL+MG CALCIUM [MASS/VOLU ME] IN SERUM OR PLASMA 9.2 mg/dL 8.4 - 10.2 02/13 Specimen Type: PLASMA No comment entered. Ordering Provider: ANKUSH BOWMAN Report Released Date/Time: Feb 05, 2023 03:10 PM Reporting Lab: [facility] [address] Performing Lab: [facility] [address] [place] [facility] BASIC METABOLI C PANEL+MG MAGNESIUM [MASS/VOLU ME] IN SERUM OR PLASMA 2.0 mg/dL 1.6 - 2.6 02/13 Specimen Type: PLASMA No comment entered. Ordering Provider: ANKUSH BOWMAN Report Released Date/Time: Feb 05, 2023 03:10 PM Reporting Lab: [facility] [address] Performing Lab: [facility] [address] [place] [facility] BASIC METABOLI C PANEL+MG ANION GAP IN SERUM OR PLASMA 7 mmol/L 5 - 15 02/13 Specimen Type: PLASMA No comment entered. Ordering Provider: ANKUSH BOWMAN Report Released Date/Time: Feb 05, 2023 03:10 PM Reporting Lab: [facility] [address] Performing Lab: [place] [address] [place] [facility] BASIC METABOLI C PANEL+MG GLOMERULAR FILTRATION RATE/1.73 SQ M.PREDICTE D [VOLUME RATE/AREA] IN SERUM, PLASMA OR BLOOD BY CREATININE -BASED FORMULA (CKD-EPI) >90 60 02/13 Specimen Type: PLASMA No comment entered. Ordering Provider: ANKUSH BOWMAN Report Released Date/Time: Feb 05, 2023 03:10 PM Reporting Lab: [facility] [address] Performing Lab: [facility] [address] [place] [facility] CYSTATIN C WITH EGFR CYSTATIN C [MASS/VOLU ME] IN SERUM OR PLASMA 1.27 mg/L 0.51 - 1.05 02/13 H Specimen Type: PLASMA No comment entered. Ordering Provider: ANKUSH BOWMAN Report Released Date/Time: Feb 05, 2023 03:10 PM Reporting Lab: [facility] [id number] Performing Lab: [facility] [address] [place] [facility] CYSTATIN C WITH EGFR CYSTATIN C AND GLOMERULAR FILTRATION RATE BY CYSTATIN C-BASED FORMULA PANEL - SERUM OR PLASMA 53 60 02/13 L Specimen Type: PLASMA No comment entered. Ordering Provider: ANKUSH BOWMAN Report Released Date/Time: Feb 05, 2023 03:10 PM Reporting Lab: [facility] [id number] Performing Lab: [facility] [address] [place] [facility] URINALYS IS COLOR OF URINE YELLOW 10/08 Specimen Type: URINE No comment entered. Ordering Provider: ANKUSH BOWMAN Report Released Date/Time: Sep 24, 2022 01:55 PM Reporting Lab: [facility] [address] Performing Lab: [facility] [address] [place] [facility] URINALYS IS SPECIFIC GRAVITY OF URINE 1.023 1.003 - 1.035 10/08 Specimen Type: URINE No comment entered. Ordering Provider: ANKUSH BOWMAN Report Released Date/Time: Sep 24, 2022 01:55 PM Reporting Lab: [facility] [address] Performing Lab: [facility] [address] [place] [facility] URINALYS IS BILIRUBIN. TOTAL [PRESENCE] IN URINE BY TEST STRIP NEGATIVE 10/08 Specimen Type: URINE No comment entered. Ordering Provider: ANKUSH BOWMAN Report Released Date/Time: Sep 24, 2022 01:55 PM Reporting Lab: [facility] [address] Performing Lab: [facility] [address] [place] [facility] URINALYS IS KETONES [MASS/VOLU ME] IN URINE BY TEST STRIP NEGATIVE 10/08 Specimen Type: URINE No comment entered. Ordering Provider: ANKUSH BOWMAN Report Released Date/Time: Sep 24, 2022 01:55 PM Reporting Lab: [facility] [address] Performing Lab: [facility] [address] [place] [facility] URINALYS IS GLUCOSE [MASS/VOLU ME] IN URINE BY TEST STRIP NEGATIVE mg/dL <30 - 30 10/08 Specimen Type: URINE No comment entered. Ordering Provider: ANKUSH BOWMAN Report Released Date/Time: Sep 24, 2022 01:55 PM Reporting Lab: [facility] [address] Performing Lab: [facility] [address] [place] [facility] URINALYS IS PROTEIN [MASS/VOLU ME] IN URINE BY TEST STRIP 30 mg/dL <20 - 20 10/08 Specimen Type: URINE No comment entered. Ordering Provider: ANKUSH BOWMAN Report Released Date/Time: Sep 24, 2022 01:55 PM Reporting Lab: [facility] [address] Performing Lab: [facility] [address] [place] [facility] URINALYS IS PH OF URINE BY TEST STRIP 7.5 5.0 - 8.0 10/08 Specimen Type: URINE No comment entered. Ordering Provider: ANKUSH BOWMAN Report Released Date/Time: Sep 24, 2022 01:55 PM Reporting Lab: [facility] [address] Performing Lab: [facility] [address] [place] [facility] URINALYS IS LEUKOCYTES [#/AREA] IN URINE SEDIMENT BY MICROSCOPY HIGH POWER FIELD >180/[HP F] 0 - 7 10/08 H Specimen Type: URINE No comment entered. Ordering Provider: ANKUSH BOWMAN Report Released Date/Time: Sep 24, 2022 01:55 PM Reporting Lab: [facility] [address] Performing Lab: [facility] [address] [facility] URINALYS IS BACTERIA [PRESENCE] IN URINE SEDIMENT BY LIGHT MICROSCOPY MANY 10/08 Specimen Type: URINE No comment entered. Ordering Provider: ANKUSH BOWMAN Report Released Date/Time: Sep 24, 2022 01:55 PM Reporting Lab: [facility] [address] Performing Lab: [facility] [address] [place] [facility] URINALYS IS ERYTHROCYT ES [#/AREA] IN URINE SEDIMENT BY MICROSCOPY HIGH POWER FIELD 33 /[HPF] 0 - 3 10/08 H Specimen Type: URINE No comment entered. Ordering Provider: ANKUSH BOWMAN Report Released Date/Time: Sep 24, 2022 01:55 PM Reporting Lab: [facility] [address] Performing Lab: [facility] [address] [place] [facility] URINALYS IS APPEARANCE OF URINE EX.TURBI D 10/08 Specimen Type: URINE No comment entered. Ordering Provider: ANKUSH BOWMAN Report Released Date/Time: Sep 24, 2022 01:55 PM Reporting Lab: [facility] [address] Performing Lab: [facility] [address] [place] [facility] URINALYS IS EPITHELIAL CELLS.SQUA MOUS [#/AREA] IN URINE SEDIMENT BY MICROSCOPY HIGH POWER FIELD 1 /[HPF] 10/08 Specimen Type: URINE No comment entered. Ordering Provider: ANKUSH BOWMAN Report Released Date/Time: Sep 24, 2022 01:55 PM Reporting Lab: [facility] [address] Performing Lab: [facility] [address] [place] [facility] URINALYS IS HEMOGLOBIN [PRESENCE] IN URINE BY TEST STRIP 1+ 10/08 Specimen Type: URINE No comment entered. Ordering Provider: ANKUSH BOWMAN Report Released Date/Time: Sep 24, 2022 01:55 PM Reporting Lab: [facility] [address] Performing Lab: [facility] [address] [place] [facility] URINALYS IS NITRITE [PRESENCE] IN URINE BY TEST STRIP NEGATIVE 10/08 Specimen Type: URINE No comment entered. Ordering Provider: ANKUSH BOWMAN Report Released Date/Time: Sep 24, 2022 01:55 PM Reporting Lab: [facility] [address] Performing Lab: [facility] [address] [place] [facility] URINALYS IS LEUKOCYTE CLUMPS [#/VOLUME] IN URINE BY AUTOMATED COUNT PRESENT 10/08 Specimen Type: URINE No comment entered. Ordering Provider: ANKUSH BOWMAN Report Released Date/Time: Sep 24, 2022 01:55 PM Reporting Lab: [facility] [address] Performing Lab: [facility] [address] [place] [facility] URINALYS IS LEUKOCYTE ESTERASE [PRESENCE] IN URINE BY TEST STRIP 500 10/08 Specimen Type: URINE No comment entered. Ordering Provider: ANKUSH BOWMAN Report Released Date/Time: Sep 24, 2022 01:55 PM Reporting Lab: [facility] [address] Performing Lab: [facility] [address] [place] [facility] ALBUMIN ALBUMIN [MASS/VOLU ME] IN SERUM OR PLASMA 4.2 g/dL 3.5 - 5.2 10/08 Specimen Type: PLASMA No comment entered. Ordering Provider: ANKUSH BOWMAN Report Released Date/Time: Sep 24, 2022 01:55 PM Reporting Lab: [facility] [address] Performing Lab: [facility] [address] [place] [facility] PRE-ALBU MIN PREALBUMIN [MASS/VOLU ME] IN SERUM OR PLASMA 28.4 mg/dL 14.0 - 45.0 10/08 Specimen Type: SERUM No comment entered. Ordering Provider: ANKUSH BOWMAN Report Released Date/Time: Sep 24, 2022 01:55 PM Reporting Lab: [facility] [address] Performing Lab: [facility] [address] [place] [facility] CBC & DIFF LEUKOCYTES [#/VOLUME] IN BLOOD BY AUTOMATED COUNT 7.32 10*3/uL 4.0 - 11.0 10/08 Specimen Type: BLOOD Comment: Automated Differentia l Performed Ordering Provider: ANKUSH BOWMAN Report Released Date/Time: Sep 24, 2022 01:55 PM Reporting Lab: [facility] [address] Performing Lab: [facility] [address] [place] [facility] CBC & DIFF ERYTHROCYT ES [#/VOLUME] IN BLOOD BY AUTOMATED COUNT 4.80 10*6/uL 4.6 - 6.2 10/08 Specimen Type: BLOOD Comment: Automated Differentia l Performed Ordering Provider: ANKUSH BOWMAN Report Released Date/Time: Sep 24, 2022 01:55 PM Reporting Lab: [facility] [address] Performing Lab: [facility] [address] [place] [facility] CBC & DIFF HEMOGLOBIN [MASS/VOLU ME] IN BLOOD 14.7 g/dL 13.5 - 17.9 10/08 Specimen Type: BLOOD Comment: Automated Differentia l Performed Ordering Provider: ANKUSH BOWMAN Report Released Date/Time: Sep 24, 2022 01:55 PM Reporting Lab: [facility] [address] Performing Lab: [facility] [address] [place] [facility] CBC & DIFF HEMATOCRIT [VOLUME FRACTION] OF BLOOD BY AUTOMATED COUNT 44.2 41 - 54 10/08 Specimen Type: BLOOD Comment: Automated Differentia l Performed Ordering Provider: ANKUSH BOWMAN Report Released Date/Time: Sep 24, 2022 01:55 PM Reporting Lab: [facility] [address] Performing Lab: [facility] [address] [place] [facility] CBC & DIFF MCV [ENTITIC VOLUME] BY AUTOMATED COUNT 92.1 fL 80 - 100 10/08 Specimen Type: BLOOD Comment: Automated Differentia l Performed Ordering Provider: ANKUSH BOWMAN Report Released Date/Time: Sep 24, 2022 01:55 PM Reporting Lab: [facility] [address] Performing Lab: [facility] [address] [place] [facility] CBC & DIFF MCH [ENTITIC MASS] BY AUTOMATED COUNT 30.6 pg 27 - 33 10/08 Specimen Type: BLOOD Comment: Automated Differentia l Performed Ordering Provider: ANKUSH BOWMAN Report Released Date/Time: Sep 24, 2022 01:55 PM Reporting Lab: [facility] [address] Performing Lab: [facility] [address] [place] [facility] CBC & DIFF MCHC [MASS/VOLU ME] BY AUTOMATED COUNT 33.3 g/dL 32.0 - 37.5 10/08 Specimen Type: BLOOD Comment: Automated Differentia l Performed Ordering Provider: ANKUSH BOWMAN Report Released Date/Time: Sep 24, 2022 01:55 PM Reporting Lab: [facility] [address] Performing Lab: [facility] [address] [place] [facility] CBC & DIFF PLATELETS [#/VOLUME] IN BLOOD BY AUTOMATED COUNT 144 10*3/uL 150 - 400 10/08 L Specimen Type: BLOOD Comment: Automated Differentia l Performed Ordering Provider: ANKUSH BOWMAN Report Released Date/Time: Sep 24, 2022 01:55 PM Reporting Lab: [facility] [address] Performing Lab: [facility] [address] [place] [facility] CBC & DIFF PLATELET MEAN VOLUME [ENTITIC VOLUME] IN BLOOD BY AUTOMATED COUNT 10.8 fL 7.4 - 10.4 10/08 H Specimen Type: BLOOD Comment: Automated Differentia l Performed Ordering Provider: ANKUSH BOWMAN Report Released Date/Time: Sep 24, 2022 01:55 PM Reporting Lab: [facility] [address] Performing Lab: [facility] [address] [place] [facility] CBC & DIFF NEUTROPHIL S/100 LEUKOCYTES IN BLOOD BY MANUAL COUNT 55.5 10/08 Specimen Type: BLOOD Comment: Automated Differentia l Performed Ordering Provider: ANKUSH BOWMAN Report Released Date/Time: Sep 24, 2022 01:55 PM Reporting Lab: [facility] [address] Performing Lab: [facility] [address] [place] [facility] CBC & DIFF LYMPHOCYTE S/100 LEUKOCYTES IN BLOOD BY MANUAL COUNT 31.4 10/08 Specimen Type: BLOOD Comment: Automated Differentia l Performed Ordering Provider: ANKUSH BOWMAN Report Released Date/Time: Sep 24, 2022 01:55 PM Reporting Lab: [facility] [address] Performing Lab: [facility] [address] [place] [facility] CBC & DIFF MONOCYTES/ 100 LEUKOCYTES IN BLOOD BY AUTOMATED COUNT 10.2 10/08 Specimen Type: BLOOD Comment: Automated Differentia l Performed Ordering Provider: ANKUSH BOWMAN Report Released Date/Time: Sep 24, 2022 01:55 PM Reporting Lab: [facility] [address] Performing Lab: [facility] [address] [place] [facility] CBC & DIFF EOSINOPHIL S/100 LEUKOCYTES IN BLOOD BY AUTOMATED COUNT 2.2 10/08 Specimen Type: BLOOD Comment: Automated Differentia l Performed Ordering Provider: ANKUSH BOWMAN Report Released Date/Time: Sep 24, 2022 01:55 PM Reporting Lab: [facility] [address] Performing Lab: [facility] [address] [place] [facility] CBC & DIFF BASOPHILS/ 100 LEUKOCYTES IN BLOOD BY MANUAL COUNT 0.4 10/08 Specimen Type: BLOOD Comment: Automated Differentia l Performed Ordering Provider: ANKUSH BOWMAN Report Released Date/Time: Sep 24, 2022 01:55 PM Reporting Lab: [facility] [address] Performing Lab: [facility] [address] [place] [facility] CBC & DIFF ERYTHROCYT E DISTRIBUTI ON WIDTH [RATIO] BY AUTOMATED COUNT 15.9 11.5 - 14.5 10/08 H Specimen Type: BLOOD Comment: Automated Differentia l Performed Ordering Provider: ANKUSH BOWMAN Report Released Date/Time: Sep 24, 2022 01:55 PM Reporting Lab: [facility] [address] Performing Lab: [facility] [address] [place] [facility] CBC & DIFF LYMPHOCYTE S [#/VOLUME] IN BLOOD BY AUTOMATED COUNT 2.30 10*3/uL 1.0 - 4.0 10/08 Specimen Type: BLOOD Comment: Automated Differentia l Performed Ordering Provider: ANKUSH BOWMAN Report Released Date/Time: Sep 24, 2022 01:55 PM Reporting Lab: [facility] [address] Performing Lab: [facility] [address] [place] [facility] CBC & DIFF MONOCYTES [#/VOLUME] IN BLOOD BY AUTOMATED COUNT 0.75 10*3/uL 0.1 - 1.0 10/08 Specimen Type: BLOOD Comment: Automated Differentia l Performed Ordering Provider: ANKUSH BOWMAN Report Released Date/Time: Sep 24, 2022 01:55 PM Reporting Lab: [facility] [address] Performing Lab: [facility] [address] [place] [facility] CBC & DIFF NEUTROPHIL S [#/VOLUME] IN BLOOD BY AUTOMATED COUNT 4.06 10*3/uL 2.0 - 7.7 10/08 Specimen Type: BLOOD Comment: Automated Differentia l Performed Ordering Provider: ANKUSH BOWMAN Report Released Date/Time: Sep 24, 2022 01:55 PM Reporting Lab: [facility] [address] Performing Lab: [facility] [address] [place] [facility] CBC & DIFF EOSINOPHIL S [#/VOLUME] IN BLOOD BY AUTOMATED COUNT 0.16 10*3/uL 0 - 0.5 10/08 Specimen Type: BLOOD Comment: Automated Differentia l Performed Ordering Provider: ANKUSH BOWMAN Report Released Date/Time: Sep 24, 2022 01:55 PM Reporting Lab: [facility] [address] Performing Lab: [facility] [address] [place] [facility] CBC & DIFF BASOPHILS [#/VOLUME] IN BLOOD BY AUTOMATED COUNT 0.03 10*3/uL 0 - 0.2 10/08 Specimen Type: BLOOD Comment: Automated Differentia l Performed Ordering Provider: ANKUSH BOWMAN Report Released Date/Time: Sep 24, 2022 01:55 PM Reporting Lab: [facility] [address] Performing Lab: [facility] [address] [place] [facility] CBC & DIFF IG(META,MY MALACHI,PRO) 0.3 10/08 Specimen Type: BLOOD Comment: Automated Differentia l Performed Ordering Provider: ANKUSH BOWMAN Report Released Date/Time: Sep 24, 2022 01:55 PM Reporting Lab: [facility] [address] Performing Lab: [facility] [address] [place] [facility] CBC & DIFF IMMATURE GRANULOCYT ES [PRESENCE] IN BLOOD BY AUTOMATED COUNT 0.02 10*3/uL 0 - 0.1 10/08 Specimen Type: BLOOD Comment: Automated Differentia l Performed Ordering Provider: ANKUSH BOWMAN Report Released Date/Time: Sep 24, 2022 01:55 PM Reporting Lab: [facility] [address] Performing Lab: [facility] [address] [place] [facility] COMPREHE NSIVE METABOLI C PANEL+MG CREATININE [MASS/VOLU ME] IN SERUM OR PLASMA 0.7 mg/dL 0.7 - 1.2 10/08 Specimen Type: PLASMA No comment entered. Ordering Provider: ANKUSH BOWMAN Report Released Date/Time: Sep 24, 2022 01:55 PM Reporting Lab: [facility] [address] Performing Lab: [facility] [address] [place] [facility] COMPREHE NSIVE METABOLI C PANEL+MG UREA NITROGEN [MASS/VOLU ME] IN SERUM OR PLASMA 16 mg/dL 8 - 26 10/08 Specimen Type: PLASMA No comment entered. Ordering Provider: ANKUSH BOWMAN Report Released Date/Time: Sep 24, 2022 01:55 PM Reporting Lab: [facility] [address] Performing Lab: [facility] [address] [place] [facility] COMPREHE NSIVE METABOLI C PANEL+MG GLUCOSE [MASS/VOLU ME] IN SERUM OR PLASMA 94 mg/dL 70 - 100 10/08 Specimen Type: PLASMA No comment entered. Ordering Provider: ANKUSH BOWMAN Report Released Date/Time: Sep 24, 2022 01:55 PM Reporting Lab: [facility] [address] Performing Lab: [facility] [address] [place] [facility] COMPREHE NSIVE METABOLI C PANEL+MG SODIUM [MOLES/VOL UME] IN SERUM OR PLASMA 138 mmol/L 136 - 145 10/08 Specimen Type: PLASMA No comment entered. Ordering Provider: ANKUSH BOWMAN Report Released Date/Time: Sep 24, 2022 01:55 PM Reporting Lab: [facility] [address] Performing Lab: [facility] [address] [place] [facility] COMPREHE NSIVE METABOLI C PANEL+MG POTASSIUM [MOLES/VOL UME] IN SERUM OR PLASMA 3.9 mmol/L 3.5 - 5.1 10/08 Specimen Type: PLASMA No comment entered. Ordering Provider: ANKUSH BOWMAN Report Released Date/Time: Sep 24, 2022 01:55 PM Reporting Lab: [facility] [address] Performing Lab: [facility] [address] [place] [facility] COMPREHE NSIVE METABOLI C PANEL+MG CHLORIDE [MOLES/VOL UME] IN SERUM OR PLASMA 101 mmol/L 98 - 107 10/08 Specimen Type: PLASMA No comment entered. Ordering Provider: ANKUSH BOWMAN Report Released Date/Time: Sep 24, 2022 01:55 PM Reporting Lab: [facility] [address] Performing Lab: [facility] [address] [place] [facility] COMPREHE NSIVE METABOLI C PANEL+MG CARBON DIOXIDE, TOTAL [MOLES/VOL UME] IN SERUM OR PLASMA 28 mmol/L 22 - 29 10/08 Specimen Type: PLASMA No comment entered. Ordering Provider: ANKUSH BOWMAN Report Released Date/Time: Sep 24, 2022 01:55 PM Reporting Lab: [facility] [address] Performing Lab: [facility] [address] [place] [facility] COMPREHE NSIVE METABOLI C PANEL+MG CALCIUM [MASS/VOLU ME] IN SERUM OR PLASMA 9.7 mg/dL 8.4 - 10.2 10/08 Specimen Type: PLASMA No comment entered. Ordering Provider: ANKUSH BOWMAN Report Released Date/Time: Sep 24, 2022 01:55 PM Reporting Lab: [facility] [address] Performing Lab: [facility] [address] [place] [facility] COMPREHE NSIVE METABOLI C PANEL+MG PROTEIN [MASS/VOLU ME] IN SERUM OR PLASMA 7.6 g/dL 6.0 - 8.3 10/08 Specimen Type: PLASMA No comment entered. Ordering Provider: ANKUSH BOWMAN Report Released Date/Time: Sep 24, 2022 01:55 PM Reporting Lab: [facility] [address] Performing Lab: [facility] [address] [place] [facility] COMPREHE NSIVE METABOLI C PANEL+MG ALBUMIN [MASS/VOLU ME] IN SERUM OR PLASMA 4.2 g/dL 3.5 - 5.2 10/08 Specimen Type: PLASMA No comment entered. Ordering Provider: ANKUSH BOWMAN Report Released Date/Time: Sep 24, 2022 01:55 PM Reporting Lab: [facility] [address] Performing Lab: [facility] [address] [place] [facility] COMPREHE NSIVE METABOLI C PANEL+MG BILIRUBIN. TOTAL [MASS/VOLU ME] IN SERUM OR PLASMA 0.6 mg/dL 0.2 - 1.2 10/08 Specimen Type: PLASMA No comment entered. Ordering Provider: ANKUSH BOWMAN Report Released Date/Time: Sep 24, 2022 01:55 PM Reporting Lab: [facility] [address] Performing Lab: [facility] [address] [place] [facility] COMPREHE NSIVE METABOLI C PANEL+MG MAGNESIUM [MASS/VOLU ME] IN SERUM OR PLASMA 2.1 mg/dL 1.6 - 2.6 10/08 Specimen Type: PLASMA No comment entered. Ordering Provider: ANKUSH BOWMAN Report Released Date/Time: Sep 24, 2022 01:55 PM Reporting Lab: [facility] [address] Performing Lab: [facility] [address] [place] [facility] COMPREHE NSIVE METABOLI C PANEL+MG ANION GAP IN SERUM OR PLASMA 9 mmol/L 5 - 15 10/08 Specimen Type: PLASMA No comment entered. Ordering Provider: ANKUSH BOWMAN Report Released Date/Time: Sep 24, 2022 01:55 PM Reporting Lab: [facility] [address] Performing Lab: [facility] [address] [place] [facility] COMPREHE NSIVE METABOLI C PANEL+MG ALKALINE PHOSPHATAS E [ENZYMATIC ACTIVITY/V OLUME] IN SERUM OR PLASMA 96 U/L 40 - 150 10/08 Specimen Type: PLASMA No comment entered. Ordering Provider: ANKUSH BOWMAN Report Released Date/Time: Sep 24, 2022 01:55 PM Reporting Lab: [facility] [address] Performing Lab: [facility] [address] [place] [facility] COMPREHE NSIVE METABOLI C PANEL+MG ALANINE AMINOTRANS FERASE [ENZYMATIC ACTIVITY/V OLUME] IN SERUM OR PLASMA 29 U/L <55 - 55 10/08 Specimen Type: PLASMA No comment entered. Ordering Provider: ANKUSH BOWMAN Report Released Date/Time: Sep 24, 2022 01:55 PM Reporting Lab: [facility] [address] Performing Lab: [facility] [address] [place] [facility] COMPREHE NSIVE METABOLI C PANEL+MG ASPARTATE AMINOTRANS FERASE [ENZYMATIC ACTIVITY/V OLUME] IN SERUM OR PLASMA 22 U/L <34 - 34 10/08 Specimen Type: PLASMA No comment entered. Ordering Provider: ANKUSH BOWMAN Report Released Date/Time: Sep 24, 2022 01:55 PM Reporting Lab: [facility] [address] Performing Lab: [facility] [address] [place] [facility] COMPREHE NSIVE METABOLI C PANEL+MG GLOMERULAR FILTRATION RATE/1.73 SQ M.PREDICTE D [VOLUME RATE/AREA] IN SERUM, PLASMA OR BLOOD BY CREATININE -BASED FORMULA (CKD-EPI) >90 60 10/08 Specimen Type: PLASMA No comment entered. Ordering Provider: ANKUSH BOWMAN Report Released Date/Time: Sep 24, 2022 01:55 PM Reporting Lab: [facility] [address] Performing Lab: [facility] [address] [place] [facility] CYSTATIN C WITH EGFR CYSTATIN C [MASS/VOLU ME] IN SERUM OR PLASMA 1.38 mg/L 0.51 - 1.05 11/28 /2022 H Specimen Type: PLASMA No comment entered. Ordering Provider: ANKUSH BOWMAN Report Released Date/Time: Sep 24, 2022 01:55 PM Reporting Lab: [facility] [address] Performing Lab: [facility] [address] [place] [facility] CYSTATIN C WITH EGFR CYSTATIN C AND GLOMERULAR FILTRATION RATE BY CYSTATIN-B ASED FORMULA PANEL - SERUM OR PLASMA 48 60 10/08 L Specimen Type: PLASMA No comment entered. Ordering Provider: ANKUSH BOWMAN Report Released Date/Time: Sep 24, 2022 01:55 PM Reporting Lab: [facility] [address] Performing Lab: [facility] [address] [place] [facility] VIT D 25-OH,TO ZAMZAM 25-HYDROXY VITAMIN D3 [MASS/VOLU ME] IN SERUM OR PLASMA 54 ng/mL 12 - 50 10/08 H Specimen Type: SERUM No comment entered. Ordering Provider: ANKUSH BOWMAN Report Released Date/Time: Sep 24, 2022 01:55 PM Reporting Lab: [facility] [address] Performing Lab: [facility] [address] [place] [facility] Encounters Combined list of: 1) Encounters from Department of Veterans Affairs facilities going back up to thelast 18 months. 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 Location Location Details Encounter Type Encounter Number Reason For Visit Attending Provider ADM Date DC Date Status Disposition Source [place] [facility] Outpatient Encounter [id number] [facility] HC PRO PHONE CALL 21-30 MIN [id number] Diagnos is: ICD-10- CM G82.20 Paraple mary kay, unspeci fied
Hever CASTRO 01/08 [facility] [place] [facility] Outpatient Encounter [id number] [facility] DIABETIC MANAGEMENT PROGRAM, [phone] Diagnos is: ICD-10- CM G82.20 Paraple mary kay, unspeci fied
TIGIST BASSETT 01/30 [facility] Outpatient Encounter [id number] 02[facility]05 [facility] MTMS BY PHARM ADDL 15 MIN [phone] Diagnos is: ICD-10- CM G82.20 Paraple mary kay, unspeci fied
MANPREET BARRETTEY N 02/05 [facility] OT EVAL LOW COMPLEX 30 MIN [phone] Diagnos is: ICD-10- CM Z73.6 Limitat ion of activit ies due to disabil ity<br/ > Bryn PARDO 02/05 [facility] OFF/OP EST MAY X REQ PHY/QHP [phone] Diagnos is: ICD-10- CM G82.20 Paraple mary kay, unspeci fied
JOSUÉ ZAMORA J 02/05 [facility] PSYCH DIAGNOSTIC EVALUATION [phone] Diagnos is: ICD-10- CM F32.A Depress ion, unspeci fied
BINU GAMEZ 02/05 [facility] OFFICE O/P EST MOD 30-39 MIN [id number] Diagnos is: ICD-10- CM G82.20 Paraple mary kay, unspeci fied
ME LOGAN BOWMAN 02/05 [facility] PSYCH DIAGNOSTIC EVALUATION [id number] Diagnos is: ICD-10- CM G82.20 Paraple mary kay, unspeci fied
MAHI ABAD DESIRE J 02/05 [facility] MEDICAL NUTRITION INDIV IN [id number] Diagnos is: ICD-10- CM Z71.3 Dietary anger control counselor ing and surveil payal<b r/> Katia ARCHER 02/05 [facility] [place] [id number] Diagnos is: ICD-10- CM Z43.3 Encount er for attenti on to colosto my
VIOLA YOON 02/08 [facility] OFFICE O/P EST HI 40-54 MIN [id number] Diagnos is: ICD-10- CM G82.20 Paraple mary kay, unspeci fied
ME LOGAN BOWMAN 02/13 [facility] WHEELCHAIR MNGMENT TRAINING [id number] Diagnos is: ICD-10- CM Z73.6 Limitat ion of activit ies due to disabil ity<br/ > BOUSLOG,RY AN P 02/13 [facility] Outpatient Encounter [id number] 02/19 [facility] HC PRO PHONE CALL 11-20 MIN [id number] Diagnos is: ICD-10- CM Z73.6 Limitat ion of activit ies due to disabil ity<br/ > BOUSLOG,RY AN P 04/23 [facility] Outpatient Encounter [id number] 04/24 [facility] Outpatient Encounter [id number] 05/24 [facility] OFF/OP EST MAY X REQ PHY/QHP [id number] Diagnos is: ICD-10- CM G82.20 Paraple mary kay, unspeci fied
VIOLA YOON 05/28 [facility] [place] [facility] WHEELCHAIR MNGMENT TRAINING [id number] Diagnos is: ICD-10- CM Z73.6 Limitat ion of activit ies due to disabil ity<br/ > BOUSLOG,RY AN P 06/10 [facility] [place] [facility] Outpatient Encounter [id number] 10/28 [facility] [place] [facility] Outpatient Encounter [id number] 11/20 [facility] [place] [facility] Outpatient Encounter [id number] 05/12 [facility] Social History Combined list of available smoking, tobacco, and other social history from 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 Social History Type Response Date Comment [facility] e Tobacco smoking status [facility] NEVER USED 05/28/20 22 SADAF TREVINO [facility] This section is an empty social history section. [facility] Plan of Care List of future care activities from Department 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 Additional future care activities may be listed in the Assessment and Plan section. Date/Time Care Activity Care Activity Detail Facili ty 07/30/2024 AMBULATORY - REHAB MEDICINE AMBULATORY - REHAB MEDICINE [facility] 05/12/2024 Consult Order SCI/D WHEELCHAIR SEATING/POSITIONING OUTPT Cons Incident Commander's Choice [facility] Advance Directives List of completed, amended, or rescinded Advance Directives on record at Department of 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 An actual copy of the Directive is not included. Date Advance Directive Provider Source 02/05/2023 ADVANCE DIRECTIVE DISCUSSION GUSTAVO ABAD [facility]
--- OUTSIDE RECORDS SUMMARY | 2024-06-22 12:47 | XMS_ITS | Clinical Summary ---
Author Organization [employer] [facility] Address [place], [place] [address] Care Team Providers Care Chart Snatcher Name Role Phone Zelalem Cohen MD Unavailable [phone] May Randle) Unavailable Franklin Squires MD Primary Care Provider Fred Craft Unavailable [phone] Diane Charles MD Unavailable [phone] Julia Ware RN Unavailable [phone] Allergies Active Allergy Reactions Criticality Noted Date [...] bedIndications:Non-heal ing surgical wound, subsequent encounter Drive [employer] 8 inch low loss mattress and 1/2 rails. Semi-electric bed. Length of need 6 weeks. Bed sleep technologist:no 1 unit 018 Active acetaminophen (TYLENOL EXTRA STRGTH) 500 mg tabletIndications:fever ,pain Take 1,000 mg by mouth three times daily. Max acetaminophen dose: 4000mg in 24 hrs. Active sodium chloride (AYR SALINE NASL) Inhale 2-3 Sprays in the nostril(s) once daily if needed. 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 SenSura Cunningham Click Ostomy Barrier with belt tabs 60mm, Cut-to-Fit 01/16 - 2 11/18. Item #54521. 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 Anticoagulation (acelis) 06/11/[address] [place] [address] Franklin Squires MD Refill Request (Warfarin) 06/03/2024 Anticoagulation (warfarin) [address] [place] [address] 1, [facility] Anticoagulation (Acelis) 06/02/[address] [place] [address] Franklin Squires MD Refill Request (Oxycodone) 05/20/2024 Anticoagulation (warfarin) [address] [place] [address] 1, [facility] Anticoagulation (Acelis) 05/14/[address] [place] [address] Franklin Squires MD Refill Request (Baclofen) 05/14/[address] [place] [address] Franklin Squires MD Refill Request (Warfarin) 05/13/2024 Anticoagulation (warfarin) [address] [place] [address] 1, [facility] Anticoagulation (Acelis) 05/11/[address] [place] [address] Franklin Squires MD Form (Physician Orders and Home Health Certification and Plan of Care.) 05/06/2024 Anticoagulation (warfarin) [address] [place] [address] 1, [facility] Anticoagulation (Acelis) 05/05/[address] [address] Franklin Squires MD Form (60 Day Summary Report) 05/05/[address] [address] Franklin Squires MD Refill Request (Warfarin) 05/04/[address] [phone] Franklin Squires MD Form 05/04/[address] [place] [address] Franklin Squires MD Refill Request (Oxycodone) 05/01/2024 Anticoagulation (warfarin) [address] [address] 1, [facility] Anticoagulation (Acelis) 04/29/[address] [address] Franklin Squires MD Refill Request (Duloxetine, Donepezil) 04/24/2024 2:49 PM CDT - 04/24/2024 2:50 PM CDT Emergency [facility] [address] [place] [address] Discharge Disposition: Against Medical Advice or Discontinued Care 04/24/2024 Travel 04/24/2024 Anticoagulation (warfarin) [facility] [address] [place] [address] 1, [facility] Anticoagulation (Acelis) 04/21/[address] [place] [phone] Franklin Squires MD Refill Request (Gabapentin) 04/20/[address] [phone] Franklin Squires MD Form (Physician Orders. Urinary Catheter - Suprapubic. ) 04/20/[address] [place] [phone] Franklin Squires MD Refill Request (Gabapentin 400 mg) 04/13/[address] [phone] Franklin Squires MD Form (Standard Written Order: Rehab Accessories. Cushion, Quadtro Select HI PRO 20x20 or 11x11 CELL) 04/07/2024 Anticoagulation (warfarin) [address] [phone] 1, [facility] Anticoagulation (acelis) 04/07/[address] [phone] Franklin Squires MD Form (Physician Orders) 04/03/2024 2:30 PM CDT Office Visit [address] [place] [address] Franklin Squires MD Follow Up (6 week follow up) 04/03/2024 Travel 04/02/[address] [place] [phone] Franklin Squires MD Refill Request (Oxycodone) 03/28/2024 Refill [address] [place] [address] Franklin Squires MD Refill Request (Furosemide) from Last 3 Months Immunizations Name Administration [...] Description 07/02/2024 1:30 PM CDT Office Visit [address] [phone] Franklin Squires MD [address] [place] [address] 07/08/2024 1:30 PM CDT Nurse/Clinic Staff Only [address] [place] [address] Health Maintenance Due Date Last Done Comments [...] Associated Diagnosis Comments HOME MONITOR AC Routine 06/17/2024 12:00 AM CDT HOME MONITOR AC Routine 06/03/2024 12:00 AM CDT HOME MONITOR AC Routine 05/20/2024 12:00 AM CDT HOME MONITOR AC Routine 05/13/2024 12:00 AM CDT HOME MONITOR AC Routine 05/06/2024 12:00 AM CDT HOME MONITOR AC Routine 05/01/2024 12:00 AM CDT HOME MONITOR AC Routine 04/24/2024 12:00 AM CDT HOME MONITOR AC Routine 04/07/2024 12:00 AM CDT from Last 3 Months Results * HOME MONITOR AC (06/17/2024 12:00 AM CDT) Only the most recent of8 resultswithin the time period is included. PATIENT REPORTED HOME INR 2.7 2.00 - 3.00 [facility] 06/17/2024 Franklin Squires MD OTHER [facility] [address] 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, receiving hemodialysis, has chronic open wounds/skin damage, has long-term percutaneous indwelling medical devices Exclusions for nares collection (if <12 months since positive culture) include all of the previous exclusions plus patients on antibiotics 7 days prior to collection 03/13/2018 03/20/2024 Advance Directives Documents on File Type Date Recorded Patient Lock Plater Expl anation Healthcare Directive 05/09/2023 023 Healthcare [...] Code Status Discussion: Reviewed Preferences Care Teams Chart Snatcher Relationship Specialty Start Date End Date Franklin Squires MD [address] [place] [address] PCP - General Family Practice 10/18/15 Zelalem Cohen MD Physical Therapist 03/13/12 May Randle Md, MD Physical Medicine and Rehabilitation 03/13/12 Luana, FAUSTINO Krueger [address] [place] [address] Agent Contract Clerk 05/03/17 Diane Charles MD [address] [place] [address] Surgery - Urology 01/17/23 Julia Ware, RN [address] [place] [address] Registered Nurse 07/17/23
--- OUTSIDE RECORDS SUMMARY | 2024-06-22 12:48 | XMS_ITS | Encounter Summary ---
Author Organization [facility] Address [address], [place] [address] Care Team Providers Care Strap Folding Machine Operator Name Role Phone Franklin Squires MD Primary Care Provider Encounter Details Date Type Department Care Team (Late st Contact Info) Description 09/07/2014 Correspondence [facility] Radiology [address] [place] [address] Radiology, Provider MRI SAFETY SHEET AND COMPATIBILITY [...] on filedocumented in this encounter Care Teams Strap Folding Machine Operator Relationship Specialty Start Date End Date Franklin Squires MD [address] [place], [place] [address] [address] PCP - General Family Practice 03/08/16 documented as of this encounter
--- OUTSIDE RECORDS SUMMARY | 2024-06-22 12:48 | XMS_ITS | Encounter Summary ---
Author Organization [facility] Address [address], [place] [address] Care Team Providers Care Flight Radio Operator Name Role Phone Franklin Squires MD Primary Care Provider Encounter Details Date Type Department Care Team (Latest Contact Info) Description 12/11/2017 Correspondence Physiatry/Physical Medicine at [facility] [address] [place] [address] May Randle MD [address] [place] [address] [employer] Social History Tobacco Use [...] filedocumented in this encounter Care Teams Flight Radio Operator Relationship Specialty Start Date End Date Franklin Squires MD [address] [place] [address] [place] [address] PCP - General Family Practice 03/08/16 documented as of this encounter
--- OUTSIDE RECORDS SUMMARY | 2024-06-22 12:48 | XMS_ITS | Encounter Summary ---
Author Organization [facility] Address [address], [place] [address] Care Team Providers Care Manager Market Research Name Role Phone Franklin Squires MD Primary Care Provider [phone] Encounter Details Date Type Department Care Team (Latest Contact Info) Description 06/04/2014 Correspondence [facility] 401 Interventional Pain Management [address] [place] [address] Zelalem Cohen, DO [address] [place] [address] MEDICAID PT INFORMATION EMPI RECOVERY Social History [...] filedocumented in this encounter Care Teams Manager Market Research Relationship Specialty Start Date End Date Franklin Squires MD [address] [facility] [address] PCP - General Family Practice 03/08/16 documented as of this encounter
--- OUTSIDE RECORDS SUMMARY | 2024-06-22 12:48 | XMS_ITS | Encounter Summary ---
Author Organization [facility] [address], [place] [address] Care Team Providers Care Deck Lid Fitter Name Role Phone Franklin Squires MD Primary Care Provider Encounter Details Date Type Department Care Team (Late st Contact Info) Description 11/10/2014 Correspondence [facility] Physical Therapy [address] [place] [address] Trudi Raymundo, PT [address] [place] [address] LETTER OF MEDICAL NECESSITY Social History Tobacco [...] on filedocumented in this encounter Care Teams Deck Lid Fitter Relationship Specialty Start Date End Date Franklin Squires MD 100 [facility] [place] [address] PCP - General Family Practice 03/08/16 documented as of this encounter
--- OUTSIDE RECORDS SUMMARY | 2024-06-22 12:48 | XMS_ITS | Encounter Summary ---
Author Organization [facility] Address [address] [address] Care Team Providers Care Client Business Manager Name Role Phone Franklin Squires MD Primary Care Provider [phone] Encounter Details Date Type Department Care Team [...] filedocumented in this encounter Care Teams Client Business Manager Relationship Specialty Start Date End Date Franklin Squires MD 100 [facility] [place] [address] PCP - General Family Practice 03/08/16 documented as of this encounter
--- OUTSIDE RECORDS SUMMARY | 2024-06-22 12:48 | XMS_ITS | Encounter Summary ---
Author Organization [facility] Address [address], [place] [address] Care Team Providers Care Boom Pump Operator Name Role Phone Franklin Squires MD Primary Care Provider Encounter Details Date Type Department Care Team (Late st Contact Info) Description 12/14/2014 Correspondence [facility] 401 Physical Medicine 401 [facility] [place] [address] May Randle MD [address] [place] [address] DETAILED PRODUCT DESCRIPTION Social History Tobacco Use [...] on filedocumented in this encounter Care Teams Boom Pump Operator Relationship Specialty Start Date End Date Franklin Squires MD 100 [facility] [place] [address] PCP - General Family Practice 03/08/16 documented as of this encounter
--- OUTSIDE RECORDS SUMMARY | 2024-06-22 12:48 | XMS_ITS | Encounter Summary ---
Author Organization [facility] Address [address], [place] [address] Care Team Providers Care Eating Disorder Psychologist Name Role Phone Franklin Squires MD [...] on filedocumented in this encounter Care Teams Eating Disorder Psychologist Relationship Specialty Start Date End Date Franklin Squires MD [address] [facility] [address] PCP - General Family Practice 03/08/16 documented as of this encounter
--- OUTSIDE RECORDS SUMMARY | 2024-06-22 12:48 | XMS_ITS | Encounter Summary ---
Author Organization [facility] [address], [place] [address] Care Team Providers Care Refueler Name Role Phone Franklin Squires MD Primary Care Provider Encounter Details Date Type Department Care Team (Late st Contact Info) Description 02/05/2014 Correspondence [facility] Physical Therapy [address] [place] [address] Trudi Raymundo, PT [address] [place] [address] LETTER OF MEDICAL NECESSITY FOR A WHEELCHAIR [...] on filedocumented in this encounter Care Teams Refueler Relationship Specialty Start Date End Date Franklin Squires MD 100 [facility] [place] [address] PCP - General Family Practice 03/08/16 documented as of this encounter
--- OUTSIDE RECORDS SUMMARY | 2024-06-22 12:48 | XMS_ITS | Encounter Summary ---
Author Organization [facility] Address [address], [place] [address] Care Team Providers Care Manganese Breaker Name Role Phone Franklin Squires MD Primary Care Provider Encounter Details Date Type Department Care Team (Late st Contact Info) Description 12/16/[address] [facility] Radiology [address] [place] [address] Radiology, Provider MRI SAFETY SHEET AND COMPATIBILITY [...] Radiology, Provider - 12/16/2013 12:00 AM CST IAL EDUCATION RESOURCE TEACHER documented in this encounter Plan of Treatment Not on file documented as of this encounter Visit Diagnoses Not on filedocumented in this encounter Care Teams Manganese Breaker Relationship Specialty Start Date End Date Franklin Squires MD 100 [facility] [place] [address] PCP - General Family Practice 03/08/16 documented as of this encounter
--- OUTSIDE RECORDS SUMMARY | 2024-06-22 12:48 | XMS_ITS | Encounter Summary ---
Author Organization [facility] Address [address] [address] Care Team Providers Care Civil Structural Engineer Name Role Phone Franklin Squires MD Primary Care Provider [phone] Encounter Details Date Type Department Care Team (Late st Contact Info) Description 01/08/2013 Scanned History External to Transferred Record, Provider [facility] Social History Tobacco Use Types Packs/Day [...] [facility] [address] PCP - General Family Practice 03/08/16 documented as of this encounter
--- OUTSIDE RECORDS SUMMARY | 2024-06-22 12:48 | XMS_ITS | Encounter Summary ---
Author Organization [facility] Address [address], [place] [address] Care Team Providers Care Motion Picture Operator Name Role Phone Franklin Squires MD Primary Care Provider [phone] Encounter Details Date Type Department Care Team (Late st Contact Info) Description 04/20/[address] [address] Radiology, Provider MRI SAFETY SHEET AND COMPATIBILITY [...] on filedocumented in this encounter Care Teams Motion Picture Operator Relationship Specialty Start Date End Date Franklin Squires MD 100 [facility] [place] [address] PCP - General Family Practice 03/08/16 documented as of this encounter
--- OUTSIDE RECORDS SUMMARY | 2024-06-22 12:48 | XMS_ITS | Encounter Summary ---
Author Organization [facility] Address [address], [place] [address] Care Team Providers Care Procurement Assistant Name Role Phone Franklin Squires MD Primary Care Provider [phone] Encounter Details Date Type Department Care Team (Late st Contact Info) Description 07/23/2013 Correspondence [facility] 401 Interventional Pain Management [address] [facility] [place] [address] Zelalem Cohen DO [address] [place] [address] [employer] Social History Tobacco Use Types [...] Cohen MD - 07/23/2013 12:00 AM CDT [facility] documented in this encounter Plan of Treatment Not on file documented as of this encounter Visit Diagnoses Not on filedocumented in this encounter Care Teams Procurement Assistant Relationship Specialty Start Date End Date Franklin Squires MD 100 [facility] [address] PCP - General Family Practice 03/08/16 documented as of this encounter
--- OUTSIDE RECORDS SUMMARY | 2024-06-22 12:48 | XMS_ITS | Encounter Summary ---
Author Organization [facility] Address [address], [place] [address] Care Team Providers Care Hyster Machine Operator Name Role Phone Franklin Squires MD Primary Care Provider Encounter Details Date Type Department Care Team (Late st Contact Info) Description 04/24/2012 Correspondence [facility] Radiology [address] [place] [address] Radiology, Provider MRI SAFETY SHEET AND COMPATIBILITY [...] on filedocumented in this encounter Care Teams Hyster Machine Operator Relationship Specialty Start Date End Date Franklin Squires MD 100 [facility] [place] [address] PCP - General Family Practice 03/08/16 documented as of this encounter
--- OUTSIDE RECORDS SUMMARY | 2024-06-22 12:48 | XMS_ITS | Encounter Summary ---
Author Organization [facility] Address [address], [place] [address] Care Team Providers Care Wound Nurse Name Role Phone Franklin Squires MD Primary Care Provider [phone] Encounter Details Date Type Department Care Team [...] on filedocumented in this encounter Care Teams Wound Nurse Relationship Specialty Start Date End Date Franklin Squires MD 100 [facility] [address] PCP - General Family Practice 03/08/16 documented as of this encounter
--- OUTSIDE RECORDS SUMMARY | 2024-06-22 12:48 | XMS_ITS | Encounter Summary ---
Author Organization [facility] Address [address], [place] [address] Care Team Providers Care Hvac Field Service Technician Name Role Phone Franklin Squires MD Primary Care Provider Encounter Details Date Type Department Care Team (Late st Contact Info) Description 06/11/2014 Correspondence [facility] 401 Physical Medicine [address] [facility] [place] [address] May Randle MD [address] [place] [address] [facility] Social History Tobacco Use Types [...] on filedocumented in this encounter Care Teams Hvac Field Service Technician Relationship Specialty Start Date End Date Franklin Squires MD 100 [facility] [place] [address] PCP - General Family Practice 03/08/16 documented as of this encounter
--- OUTSIDE RECORDS SUMMARY | 2024-06-22 12:48 | XMS_ITS | Encounter Summary ---
Author Organization [facility] Address [address], [place] [address] Care Team Providers Care Factory Supervisor Name Role Phone Franklin Squires MD Primary Care Provider [phone] Encounter Details Date Type Department Care Team (Late st Contact Info) Description 07/28/2014 Outside Hospital External to External, Provider No address [address] ER VISIT/TRANSFER Social History Tobacco Use [...] filedocumented in this encounter Care Teams Factory Supervisor Relationship Specialty Start Date End Date Franklin Squires MD 100 [facility] [place] [address] PCP - General Family Practice 03/08/16 documented as of this encounter
--- OUTSIDE RECORDS SUMMARY | 2024-06-22 12:48 | XMS_ITS | Encounter Summary ---
Author Organization [facility] Address [address] [address] Care Team Providers Care Appliance Repairer Name Role Phone Franklin Squires MD Primary Care Provider [phone] Encounter Details Date Type Department Care Team (Late st Contact Info) Description 09/17/2013 Correspondence External to External, [place] [address] EMPOWERMENT RULES Social History Tobacco Use Types [...] External, Provider - 09/17/2013 12:00 AM CST COURSE RANGER documented in this encounter Plan of Treatment Not on file documented as of this encounter Visit Diagnoses Not on filedocumented in this encounter Care Teams Appliance Repairer Relationship Specialty Start Date End Date Franklin Squires MD [address] [place] [address] [place] [address] PCP - General Family Practice 03/08/16 documented as of this encounter
--- OUTSIDE RECORDS SUMMARY | 2024-06-22 12:48 | XMS_ITS | Encounter Summary ---
Author Organization [facility] [address] [address] Care Team Providers Care Child Welfare Social Worker Name Role Phone Franklin Squires MD Primary Care Provider [phone] Encounter Details Date Type Department Care Team (Late st Contact Info) Description 07/08/2015 Correspondence [facility] Physical Therapy [address] [place] [address] Trudi Raymundo, PT [address] [place] [address] ADDENDUM FOR LETTER OF MEDICAL NECESSITY Social [...] on filedocumented in this encounter Care Teams Child Welfare Social Worker Relationship Specialty Start Date End Date Franklin Squires MD [address] [facility] [address] PCP - General Family Practice 03/08/16 documented as of this encounter
--- OUTSIDE RECORDS SUMMARY | 2024-06-22 12:48 | XMS_ITS | Encounter Summary ---
Author Organization [facility] Address [address], [place] [address] Care Team Providers Care Spinning Supervisor Name Role Phone Franklin Squires MD Primary Care Provider Encounter Details Date Type Department Care Team (Late st Contact Info) Description 12/16/2014 Correspondence External to External, [place] [address] MEDICARE PLAN OF CARE RECERT Social History [...] on filedocumented in this encounter Care Teams Spinning Supervisor Relationship Specialty Start Date End Date Franklin Squires MD [address] [place] [address] [facility] [place] [address] PCP - General Family Practice 03/08/16 documented as of this encounter
--- OUTSIDE RECORDS SUMMARY | 2024-06-22 12:48 | XMS_ITS | Encounter Summary ---
Author Organization [facility] Address [address], [place] [address] Care Team Providers Care Linen Aide Name Role Phone Franklin Squires MD Primary Care Provider [phone] Encounter Details Date Type Department Care Team (Late st Contact Info) Description 08/20/2014 Outside Hospital External to [facility]/P Social History Tobacco Use Types [...] on filedocumented in this encounter Care Teams Linen Aide Relationship Specialty Start Date End Date Franklin Squires MD [address] [place], [place] [address] [address] PCP - General Family Practice 03/08/16 documented as of this encounter
--- OUTSIDE RECORDS SUMMARY | 2024-06-22 12:48 | XMS_ITS | Encounter Summary ---
Author Organization [facility] Address [address] [address] Care Team Providers Care Warp Preparer Name Role Phone Franklin Squires MD Primary Care Provider Encounter Details Date Type Department Care Team (Late st Contact Info) Description 11/13/2012 Correspondence [facility] Radiology [address] [place] [address] Radiology, Provider MRI SAFETY SHEET AND COMPATIBILITY [...] RADIOLOGY, PROVIDER - 11/13/2012 12:00 AM CST LOADER documented in this encounter Plan of Treatment Not on file documented as of this encounter Visit Diagnoses Not on filedocumented in this encounter Care Teams Warp Preparer Relationship Specialty Start Date End Date Franklin Squires MD 100 [facility] [place] [address] PCP - General Family Practice 03/08/16 documented as of this encounter
--- OUTSIDE RECORDS SUMMARY | 2024-06-22 12:48 | XMS_ITS | Encounter Summary ---
Author Organization [facility] Address [address], [place] [address] Care Team Providers Care Director Of Cardiac Cath Lab Name Role Phone Franklin Squires MD Primary Care Provider Encounter Details Date Type Department Care Team (Late st Contact Info) Description 05/04/2014 Correspondence [facility] Physical Medicine 401 [facility] [place] [address] May Randle MD [address] [place] [address] LETTER OF MEDICAL NECESSITY FOR A WHEELCHAIR [...] in this encounter Care Teams Director Of Cardiac Cath Lab Relationship Specialty Start Date End Date Franklin Squires MD 100 [facility] [place] [address] PCP - General Family Practice 03/08/16 documented as of this encounter
--- OUTSIDE RECORDS SUMMARY | 2024-06-22 12:48 | XMS_ITS | Encounter Summary ---
Author Organization [facility] Address [address], [place] [address] Care Team Providers Care Tinsmith Apprentice Name Role Phone Franklin Squires MD Primary Care Provider [phone] Encounter Details Date Type Department Care Team (Late st Contact Info) Description 08/20/2014 Outside Hospital External to [facility] HOSP-ADMIT H/P Social History Tobacco Use [...] on filedocumented in this encounter Care Teams Tinsmith Apprentice Relationship Specialty Start Date End Date Franklin Squires MD 100 [facility] [address] PCP - General Family Practice 03/08/16 documented as of this encounter
--- OUTSIDE RECORDS SUMMARY | 2024-06-22 12:48 | XMS_ITS | Encounter Summary ---
Author Organization [facility] Address [address] [address] Care Team Providers Care Mechanical Maintenance Technician Name Role Phone Franklin Squires MD Primary Care Provider Encounter Details Date Type Department Care Team (Late st Contact Info) Description 11/23/2015 Correspondence External to External, [place] [address] LETTER [facility] Social History [...] filedocumented in this encounter Care Teams Mechanical Maintenance Technician Relationship Specialty Start Date End Date Franklin Squires MD [address] [place] [address] [place] [address] PCP - General Family Practice 03/08/16 documented as of this encounter
--- OUTSIDE RECORDS SUMMARY | 2024-06-22 12:48 | XMS_ITS | Encounter Summary ---
Author Organization [facility] Address [address], [place] [address] Care Team Providers Care Rn Case Manager Hospice Name Role Phone Franklin Squires MD Primary Care Provider Encounter Details Date Type Department Care Team (Late st Contact Info) Description 06/07/2015 Correspondence [facility] Radiology [address] [place] [address] Radiology, Provider MRI SAFETY SHEET AND COMPATIBILITY [...] filedocumented in this encounter Care Teams Rn Case Manager Hospice Relationship Specialty Start Date End Date Franklin Squires MD [address] [place], [place] [address] [address] PCP - General Family Practice 03/08/16 documented as of this encounter
--- OUTSIDE RECORDS SUMMARY | 2024-06-22 12:48 | XMS_ITS | Encounter Summary ---
Author Organization [facility] [address], [place] [address] Care Team Providers Care Kitchen Chef Name Role Phone Franklin Squires MD Primary Care Provider [phone] Encounter Details Date Type Department Care Team (Late st Contact Info) Description 10/26/2013 Correspondence [facility] Physical Therapy [address] [place] [address] Trudi Raymundo, PT [address] [place] [address] LETTER OF MEDICAL NECESSITY Social History Tobacco [...] PT - 10/26/2013 12:00 AM CST S TRAINING MANAGER documented in this encounter Plan of Treatment Not on file documented as of this encounter Visit Diagnoses Not on filedocumented in this encounter Care Teams Kitchen Chef Relationship Specialty Start Date End Date Franklin Squires MD 100 [facility] [address] PCP - General Family Practice 03/08/16 documented as of this encounter
--- OUTSIDE RECORDS SUMMARY | 2024-06-22 12:48 | XMS_ITS | Encounter Summary ---
Author Organization [facility] Address [address], [place] [address] Care Team Providers Care Property Controller Name Role Phone Franklin Squires MD Primary Care Provider Encounter Details Date Type Department Care Team (Late st Contact Info) Description 08/22/2014 Outside Hospital External to [facility] HOSP-D/C SUMMARY Social History Tobacco [...] filedocumented in this encounter Care Teams Property Controller Relationship Specialty Start Date End Date Franklin Squires MD 100 [facility] [address] PCP - General Family Practice 03/08/16 documented as of this encounter
--- OUTSIDE RECORDS SUMMARY | 2024-06-22 12:48 | XMS_ITS | Encounter Summary ---
Author Organization [facility] Address [address] [address] Care Team Providers Care Surgical Scheduler Name Role Phone Franklin Squires MD Primary Care Provider [phone] Encounter Details Date Type Department Care Team [...] filedocumented in this encounter Care Teams Surgical Scheduler Relationship Specialty Start Date End Date Franklin Squires MD 100 [facility] [place] [address] PCP - General Family Practice 03/08/16 documented as of this encounter
--- OUTSIDE RECORDS SUMMARY | 2024-06-22 12:48 | XMS_ITS | Encounter Summary ---
Author Organization [facility] Address [address], [place] [address] Care Team Providers Care Leak Operator Paraffin Plant Name Role Phone Franklin Squires MD Primary Care Provider Encounter Details Date Type Department Care Team (Late st Contact Info) Description 03/11/2014 Correspondence [facility] 401 Interventional Pain Management 401 [facility] [place] [address] Zelalem Cohen, DO [address] [place] [address] EMPI Social History Tobacco Use Types Packs/Day [...] on filedocumented in this encounter Care Teams Leak Operator Paraffin Plant Relationship Specialty Start Date End Date Franklin Squires MD 100 [facility] [place] [address] PCP - General Family Practice 03/08/16 documented as of this encounter
--- OUTSIDE RECORDS SUMMARY | 2024-06-22 12:48 | XMS_ITS | Encounter Summary ---
Author Organization [facility] Address [address], [place] [address] Care Team Providers Care Tool Setter Apprentice Name Role Phone Franklin Squires MD Primary Care Provider [phone] Encounter Details Date Type Department Care Team (Late st Contact Info) Description 02/09/2016 Correspondence [facility] 401 NeuroSurgery 401 [facility]. [place], [place] [id number] Jodi Aguila PA-C [address] [place] [address] PATIENT LIFT PRESCRIPTION Social History Tobacco Use [...] filedocumented in this encounter Care Teams Tool Setter Apprentice Relationship Specialty Start Date End Date Franklin Squires MD 100 [facility] [place] [id number] PCP - General Family Practice 03/08/16 documented as of this encounter
--- OUTSIDE RECORDS SUMMARY | 2024-06-22 12:48 | XMS_ITS | Encounter Summary ---
Author Organization [facility] Address [address], [place] [address] Care Team Providers Care Financial Project Manager Name Role Phone Franklin Squires MD Primary Care Provider Encounter Details Date Type Department Care Team (Late st Contact Info) Description 01/06/2016 Correspondence [facility] Radiology [address] [place] [address] Radiology, Provider MRI SAFETY SHEET AND COMPATIBILITY [...] filedocumented in this encounter Care Teams Financial Project Manager Relationship Specialty Start Date End Date Franklin Squires MD [address] [place], [place] [address] [address] PCP - General Family Practice 03/08/16 documented as of this encounter
== END 2024-06-22 12:46 | disposition home or self-care (01) ==
LOC: WOUND 12:45
PROVIDERS: PCP Family Medicine; Visit Provider Nurse Practitioner Family
DX: L89.324 Pressure ulcer of left buttock, stage 4 (principal); E11.622 Type 2 diabetes mellitus with other skin ulcer; G82.50 Quadriplegia, unspecified; Z99.3 Dependence on wheelchair
CPT/HCPCS: 15271; Q4201

== ENCOUNTER 2024-06-29 12:44 | Outpatient (CLI) | payer MEDICARE, OTHER, SELFPAY ==
--- OUTSIDE RECORDS SUMMARY | 2024-06-29 12:46 | XMS_ITS | Continuity of Care Document ---
Author Name [facility] Organization [facility] Care Team Providers Care Business Office Assistant Name Role Phone [facility] Unavailable Unavailable Problems Combined list of problems from 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 It does not include entries that were removed or entered in error. Problem Status Onset Date Problem Type Date of Resolution Comments Source Abnormal liver function Active Condition [facility] Anemia (SCT 973980014) Active Condition [facility] Anxiety ([facility] 99766173) Active Condition [facility] Autonomic dysreflexia Active Condition [facility] Chronic Pain Syndrome (SCT 363588263) Active Condition [facility] Colostomy present Active Condition [facility] Constipation (S[facility] 86600892) Active Condition [facility] Continuous opioid dependence Active Condition [facility] COPD - Chronic Obstructive Pulmonary Disease (SCT 23542824) Active Condition [facility] Dementia Active Condition [facility] Depression ([facility] 37476787) Active Condition [facility] Diabetes Mellitus Type 2 (SCT 80382471) Active Condition [facility] Ependymoma of spinal cord Active Condition [facility] Hearing Loss (SCT 54766299) Active Condition [facility] History of Deep Vein Thrombosis (SCT 643927835) Active Condition [facility] History of pressure injury Active Condition [facility] HTN - Hypertension (SCT 89507102) Active Condition [facility] Hyperlipidemia (S[facility] 46683130) Active Condition [facility] Hyponatremia Active Condition [facility] Long-term current use of anticoagulant Active Condition [facility] Neurogenic Bladder ([facility] 312074121) Active Condition [facility] Neurogenic bowel Active Condition [facility] Osteoporosis ([facility] 78612899) Active Condition [facility] Paraplegia Active Condition [facility] Spasticity Active Condition [facility] Suprapubic urinary catheter in situ Active Condition [facility] Supraventricular tachycardia Active Condition [facility] Tinnitus ([facility] 98869662) Active Condition [facility] Vitamin D Deficiency ([facility] 3143333) Active Condition [facility] Diagnosis: ICD-10-CM Z73.6 Limitation of activities due to disability Active Diagnosis [facility] Diagnosis: ICD-10-CM G82.20 Paraplegia, unspecified Active Diagnosis [facility] Diagnosis: ICD-10-CM Z43.3 Encounter for attention to colostomy Active Diagnosis [facility] Diagnosis: ICD-10-CM Z71.3 Dietary counseling and surveillance Active Diagnosis [facility] Diagnosis: ICD-10-CM F32.A Depression, unspecified Active Diagnosis [facility] Medications Combined list of outpatient medications from Department of Defense and [facility] facilities.Medications provided include 1) outpatient medications [...] MEDICAL CENTER ORAL ACTIVE Jagdish BARRETT [address] [facility] AMLODIPINE BESYLATE (AMLODIPINE BESYLATE), 5 MG, TABLET, ORAL, OTI [employer] 1000 ea. BOTTLE Active [id number] 4 2023 90 Pharmac y Data Transac tion Service Facilit y AMLODIPINE BESYLATE (amlodipine besylate), 5 MG, TABLET, ORAL, CTIC [employer] [facility], 1000 ea. BOTTLE Active [id number] 2023 90 Pharmac y Data Transac tion Service Facilit y AMLODIPINE BESYLATE 2.5MG TAB AMLODIPI NE BESYLATE 2.5MG TAB Non-VA TAKE TWO TABLETS BY MOUTH EVERY MORNING Feb 05, 2023 Non-VA Document ed by: PIPO BARRETT Document ed at: [facility] ORAL ACTIVE Jagdish BARRETT [address] [facility] AMOX TR-POTASSIU M CLAVULANATE (AMOXICILLI N/POTASSIUM CLAV), 875-125 MG, TABLET, ORAL, [employer]EV[employer] [place], 20 ea. BOTTLE Active [id number] 2022 14 Pharmac y Data Transac tion Service Facilit y AMOXICILLIN -CLAVULANAT E POTASS (amoxicilli n/potassium clavulanate ), 875-125 MG, TABLET, ORAL, [employer] [place],, 20 ea. BOTTLE Active [id number] 2023 20 Pharmac y Data Transac tion Service Facilit y AMOXICILLIN -CLAVULANAT E POTASS (amoxicilli n/potassium clavulanate ), 875-125 MG, TABLET, ORAL, [employer] [place],, 20 ea. BOTTLE Active [id number] 2023 56 Pharmac y Data Transac tion Service Facilit y ARIPIPRAZOL E (aripiprazo le), 2 MG, TABLET, ORAL, [employer]ARMACE, 500 ea. BOTTLE Active [id number] 2023 180 Pharmac y Data Transac tion Service Facilit y ARIPIPRAZOL E (aripiprazo le), 2 MG, TABLET, ORAL, [employer]ACE, 500 ea. BOTTLE Active [id number] 2023 180 Pharmac y Data Transac tion Service Facilit y ARIPIPRAZOL E TAB ARIPIPRA ZOLE TAB Non-VA TAKE 2MG BY MOUTH TWICE A DAY May 29, 2022 Non-VA Document ed by: SHANTAL HANSON Document ed at: [facility] ORAL ACTIVE Jey HANSON 2021 [facility] ATIVAN (LORAZEPAM) , 0.5 MG, TABLET, ORAL, VALEANT, 100 ea. BOTTLE Active [id number] 2023 120 Pharmac y Data Transac [...] BIOCON PHARMA I, 1000 ea. BOTTLE Active [id number] 2023 90 Pharmac y Data Transac tion Service Facilit y ATORVASTATI N CALCIUM (atorvastat in calcium), 40 MG, TABLET, ORAL, BIOCON PHARMA I, 1000 ea. BOTTLE Active [id number] 2023 90 Pharmac y Data Transac tion Service Facilit y BACLOFEN (baclofen), 20 MG, TABLET, ORAL, [facility]., 1000 ea. BOTTLE Active [id number] 2023 540 Pharmac y Data Transac tion Service Facilit y BACLOFEN (baclofen), 20 MG, TABLET, ORAL, [facility] [facility] 1000 ea. BOTTLE Active [id number] 2023 540 Pharmac y Data Transac tion Service Facilit y BACLOFEN 20MG TAB BACLOFEN 20MG TAB Non-VA TAKE TWO TABLETS BY MOUTH THREE TIMES A DAY Feb 05, 2023 Non-VA Document ed by: PIPO BARRETT Document ed at: [facility] ORAL ACTIVE Jagdish BARRETT 2022 [facility] BUPROPION HCL 150MG 12HR TAB,SA BUPROPIO N HCL 150MG 12HR TAB,SA Non-VA TAKE ONE TABLET BY MOUTH TWICE A DAY May 29, 2022 Non-VA Document ed by: SHANTAL HANSON Document ed at: [facility] ORAL ACTIVE Jey HANSON 2021 [facility] BUPROPION HCL SR (bupropion HCl), 150 MG, TAB SR 12H, ORAL, [facility], 60 ea. BOTTLE Active [id number] 2023 180 Pharmac y Data Transac tion Service Facilit y BUPROPION HCL SR (bupropion HCl), 150 MG, TAB SR 12H, ORAL, P[facility]EL [employer], 60 ea. BOTTLE Active [id number] 2023 180 Pharmac y Data Transac [...] ORAL, AUROBINDO PHARM, 50 ea. BOTTLE Active [id number] 2023 70 Pharmac y Data Transac tion Service Facilit y DONEPEZIL HCL (DONEPEZIL HCL), 5 MG, TABLET, ORAL, [employer] 1000 ea. BOTTLE Active [id number] 2023 90 Pharmac y Data Transac tion Service Facilit y DONEPEZIL HCL (DONEPEZIL HCL), 5 MG, TABLET, ORAL, [employer] 1000 ea. BOTTLE Cancele d [id number] : 2023 0 Pharmac y Data Transac tion Service Facilit y DONEPEZIL HCL (DONEPEZIL HCL), 5 MG, TABLET, ORAL, [email or web address] 1000 ea. BOTTLE Active [id number] 2023 90 Pharmac y Data Transac tion Service Facilit y DONEPEZIL HCL 10MG TAB DONEPEZI L HCL 10MG TAB Non-VA TAKE ONE-HALF TABLET BY MOUTH EVERY DAY May 29, 2022 Non-VA Document ed by: SHANTAL HANSON Document ed at: [facility] ORAL ACTIVE Jey HANSON 2021 [facility] DULOXETINE HCL (duloxetine HCl), 60 MG, CAPSULE DR, ORAL, [employer] 1000 ea. BOTTLE Active [id number] 2023 180 Pharmac y Data Transac tion Service Facilit y DULOXETINE HCL (duloxetine HCl), 60 MG, CAPSULE DR, ORAL, [email or web address] 1000 ea. BOTTLE Active [id number] 2023 180 Pharmac y Data Transac tion Service Facilit y DULOXETINE HCL 30MG CAP,EC DULOXETI NE HCL 30MG CAP,EC Non-VA TAKE 2 CAPSULES BY MOUTH TWICE A DAY May 29, 2022 Non-VA Document ed by: SHANTAL HASNON Document ed at: [facility] ORAL ACTIVE Jey HANSON 2021 [facility] FAMOTIDINE (famotidine ), 20 MG, TABLET, ORAL, RIWI., 1000 ea. BOTTLE Active [id number] 2023 180 Pharmac y Data Transac tion Service Facilit y FAMOTIDINE 20MG TAB FAMOTIDI NE 20MG TAB Non-VA TAKE ONE TABLET BY MOUTH TWICE A DAY May 29, 2022 Non-VA Document ed by: SHANTAL HANSON Document ed at: [facility] ORAL ACTIVE Jey HANSON 2021 [facility] FUROSEMIDE (furosemide ), 40 MG, TABLET, ORAL, [employer], 1000 ea. BOTTLE Active [id number] 2023 180 Pharmac y Data Transac tion Service Facilit y FUROSEMIDE 40MG TAB FUROSEMI DE 40MG TAB Non-VA TAKE ONE TABLET BY MOUTH TWICE A DAY May 29, 2022 Non-VA Document ed by: SHANTAL HANSON Document ed at: [facility] ORAL ACTIVE Jey HANSON 2021 [facility] GABAPENTIN (gabapentin ), 400 MG, CAPSULE, ORAL, [email or web address] 500 ea. BOTTLE Active [id number] 2023 270 Pharmac y Data Transac tion Service Facilit y GABAPENTIN (gabapentin ), 400 MG, CAPSULE, ORAL, [employer], 500 ea. BOTTLE Active [id number] 2023 270 Pharmac y Data Transac tion Service Facilit y GABAPENTIN (gabapentin ), 400 MG, CAPSULE, ORAL, [employer]ARMACE, 500 ea. BOTTLE Cancele d [id number] : 2023 0 Pharmac y Data Transac [...] ORAL, [employer]UROBINDO PHARM, 500 ea. BOTTLE Active [id number] 2023 120 Pharmac y Data Transac tion Service Facilit y LORAZEPAM (lorazepam) , 0.5 MG, TABLET, ORAL, LEADING [employer]ARMA, 1000 ea. BOTTLE Active [id number] 2023 120 Pharmac y Data Transac tion Service Facilit y LORAZEPAM (lorazepam) , 0.5 MG, TABLET, ORAL, LE[employer] PHARMA, 1000 ea. BOTTLE Active [id number] 2023 120 Pharmac y Data Transac tion Service Facilit y LORAZEPAM (lorazepam) , 0.5 MG, TABLET, ORAL, LE[employer] PHARMA, 1000 ea. BOTTLE Active [id number] 2023 120 Pharmac y Data Transac tion Service Facilit y LORAZEPAM (lorazepam) , 0.5 MG, TABLET, ORAL, LE[employer] PHARMA, 500 ea. BOTTLE Active [id number] 2023 120 Pharmac y Data Transac tion Service Facilit y LORAZEPAM 0.5MG TAB LORAZEPA M 0.5MG TAB Non-VA TAKE ONE TABLET BY MOUTH THREE TIMES A DAY AND TAKE TWO TABLETS BY MOUTH AT BEDTIME Feb 05, 2023 Non-VA Document ed by: PIPO BARRETT Document ed at: [facility] ORAL [facility]IVE Jagdish BARRETT 2022 [facility] MILK OF MAGNESIA MILK OF [...] MEDICAL CENTER NASAL ACTIVE Jagdish BARRETT [address] [facility] OXYCODONE HCL (OXYCODONE HCL), 10 MG, TABLET, ORAL, [employer] 100 ea. BOTTLE Active [id number] 2023 120 Pharmac y Data Transac tion Service Facilit y OXYCODONE HCL (OXYCODONE HCL), 10 MG, TABLET, ORAL, [employer] 100 ea. BOTTLE Active [id number] 2023 120 Pharmac y Data Transac tion Service Facilit y OXYCODONE HCL (OXYCODONE HCL), 10 MG, TABLET, ORAL, [employer] 100 ea. BOTTLE Active [id number] 2023 120 Pharmac y Data Transac tion Service Facilit y OXYCODONE HCL (OXYCODONE HCL), 10 MG, TABLET, ORAL, [employer] 100 ea. BOTTLE Active [id number] 2023 120 Pharmac y Data Transac tion Service Facilit y OXYCODONE HCL (OXYCODONE HCL), 10 MG, TABLET, ORAL, [employer] 100 ea. BOTTLE Active [id number] 2023 120 Pharmac y Data Transac tion Service Facilit y OXYCODONE HCL (OXYCODONE HCL), 10 MG, TABLET, ORAL, [employer] 100 ea. BOTTLE Active [id number] 2023 120 Pharmac y Data Transac tion Service Facilit y OXYCODONE HCL (OXYCODONE HCL), 10 MG, TABLET, ORAL, [employer] 100 ea. BOTTLE Active [id number] 2022 120 Pharmac y Data Transac tion Service Facilit y OXYCODONE HCL 5MG TAB OXYCODON E HCL 5MG TAB Non-VA TAKE TWO TABLETS BY MOUTH FOUR TIMES A DAY Feb 05, 2023 Non-VA Document ed by: PIPO BARRETT Document ed at[facility] Jagdish BARRETT 2022 [facility] POTASSIUM CHLORIDE (potassium chloride), 10 MEQ, TAB ER PRT, ORAL, [employer]ACE, 100 ea. BOTTLE Active [id number] 2023 180 Pharmac y Data Transac tion Service Facilit y POTASSIUM CHLORIDE (potassium chloride), 10 MEQ, TAB ER PRT, ORAL, [employer]ACE, 100 ea. BOTTLE Active [id number] 2023 180 Pharmac y Data Transac tion Service Facilit y POTASSIUM CHLORIDE (potassium chloride), 20 MEQ, TAB ER PRT, ORAL, [employer]ARMACE, 100 ea. BOTTLE Active [id number] 2023 90 Pharmac y Data Transac [...] WHITLOCK&N/UNI LUIS, 30 g TUBE Cancele d [id number] : 2023 0 Pharmac y Data Transac tion Service Facilit y WARFARIN SODIUM (warfarin sodium), 5 MG, TABLET, ORAL, [employer] 1000 ea. BOTTLE Cancele d [id number] : 2022 0 Pharmac y Data Transac tion Service Facilit y WARFARIN SODIUM (WARFARIN SODIUM), 5 MG, TABLET, ORAL, [employer] [place], 1000 ea. BOTTLE Active [id number] 2023 25 Pharmac y Data Transac tion Service Facilit y WARFARIN SODIUM (WARFARIN SODIUM), 5 MG, TABLET, ORAL, [employer] [place], 1000 ea. BOTTLE Active [id number] 2023 12 Pharmac y Data Transac tion Service Facilit y WARFARIN SODIUM (WARFARIN SODIUM), 5 MG, TABLET, ORAL, [employer] [place], 1000 ea. BOTTLE Active [id number] 2023 40 Pharmac y Data Transac tion Service Facilit y WARFARIN SODIUM (WARFARIN SODIUM), 5 MG, TABLET, ORAL, [employer] [place], 1000 ea. BOTTLE Cancele d [id number] : 2022 0 Pharmac y Data Transac tion Service Facilit y WARFARIN SODIUM (warfarin sodium), 7.5 MG, TABLET, ORAL, [employer] [place], 100 ea. BOTTLE Active [id number] 2023 51 Pharmac y Data Transac tion Service Facilit y WARFARIN SODIUM (warfarin sodium), 7.5 MG, TABLET, ORAL, [employer]EV[employer] [place], 100 ea. BOTTLE Active [id number] 2023 78 Pharmac y Data Transac tion Service Facilit y WARFARIN TAB WARFARIN TAB Non-VA TAKE 5MG BY MOUTH SUN/THUR S AND TAKE 7.5MG BY MOUTH ALL OTHER DAYS Feb 05, 2023 Non-VA Document ed by: PIPO BARRETT Document ed at: [facility] ORAL ACTIVE Jagdish BARRETT [address] [facility] Allergies, Adverse Reactions, Alerts Combined list of allergies from 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 It does not include entries that were removed or entered in error. Substance Category Reaction Severity Reaction type Status Date Reported Comments Source AMOXICILLIN Propensity to adverse reactions to drug (finding) Eruption active 2 [facility] METOLAZONE Propensity to adverse reactions to drug (finding) Itching active 2 [facility] MORPHINE Propensity to adverse reactions to drug (finding) Delirium active 2 [facility] PIPERACILLIN Propensity to adverse reactions to drug (finding) Eruption active 2 [facility] SULFA DRUGS Propensity to adverse reactions to drug (finding) Eruption active 2 [facility] TAZOBACTAM SODIUM Propensity to adverse reactions to drug (finding) Eruption active 2 [facility] Immunizations Combined list of available immunizations from the 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 INFLUENZA, ADJUVANTED, QUADRIVALENT, PF [address] [facility] INFLUENZA, UNSPECIFIED FORMULATION 2021 88 complet ed 's recall [facility] TD (ADULT), 5 LF TETANUS TOXOID, PRESERVATIVE FREE, ADSORBED 2021 113 complet ed [facility] INFLUENZA, ADJUVANTED, QUADRIVALENT, PF [address] [facility] INFLUENZA, UNSPECIFIED FORMULATION [address] [facility] COVID-19 ([email or web address]), MRNA, LNP-S, PF, 30 MCG/0.3 ML DOSE [address] [facility] COVID-19 ([email or web address]), MRNA, LNP-S, PF, 30 MCG/0.3 ML DOSE 2 [address] [facility] COVID-19 (PFIZER), MRNA, LNP-S, PF, 30 MCG/0.3 ML DOSE 1 [address] [facility] INFLUENZA, ADJUVANTED, QUADRIVALENT, PF [address] [facility] INFLUENZA, ADJUVANTED, TRIVALENT, PF [address] [facility] INFLUENZA, ADJUVANTED, TRIVALENT, PF [address] [facility] INFLUENZA, HIGH-DOSE, TRIVALENT, PF [address] [facility] INFLUENZA, ADJUVANTED, TRIVALENT, PF [address] [facility] INFLUENZA, HIGH-DOSE, TRIVALENT, PF [address] [facility] ZOSTER LIVE [address] [facility] PNEUMOCOCCAL CONJUGATE PCV 13 2014 133 complet ed [facility] INFLUENZA, HIGH-DOSE, TRIVALENT, PF [address] [facility] INFLUENZA, HIGH-DOSE, TRIVALENT, PF [address] [facility] INFLUENZA, UNSPECIFIED FORMULATION [address] [facility] INFLUENZA, SPLIT VIRUS, TRIVALENT, PRESERVATIVE [address] [facility] ZOSTER LIVE 2012 121 complet ed [facility] INFLUENZA, SPLIT VIRUS, TRIVALENT, PRESERVATIVE [address] [facility] INFLUENZA, SPLIT VIRUS, TRIVALENT, PF [address] [facility] PNEUMOCOCCAL POLYSACCHARID E PPV23 [address] [facility] TDAP 2010 115 complet ed [facility] INFLUENZA, SPLIT VIRUS, TRIVALENT, PRESERVATIVE 2009 141 complet [facility] NOVEL INFLUENZA-H1N 1-09, ALL FORMULATIONS [address] [facility] INFLUENZA, SPLIT VIRUS, TRIVALENT, PF [address] [facility] PNEUMOCOCCAL POLYSACCHARID E PPV23 [address] [facility] INFLUENZA, SPLIT VIRUS, TRIVALENT, PRESERVATIVE [address] [facility] INFLUENZA, SPLIT VIRUS, TRIVALENT, PRESERVATIVE [address] [facility] INFLUENZA, SPLIT VIRUS, TRIVALENT, PRESERVATIVE [address] [facility] INFLUENZA, SPLIT VIRUS, TRIVALENT, PRESERVATIVE [address] [facility] PNEUMOCOCCAL POLYSACCHARID E PPV23 [address] [facility] INFLUENZA, SPLIT VIRUS, TRIVALENT, PRESERVATIVE [address] [facility] Results Combined list of recent [...] Feb 05, 2023 03:10 PM Reporting Lab: [facility] [address] Performing Lab: [facility] [address] [place] [facility] BASIC METABOLI C PANEL+MG UREA NITROGEN [MASS/VOLU ME] IN SERUM OR PLASMA 15 mg/dL 8 - 02/13 Specimen Type: PLASMA No comment entered. Ordering Provider: ANKUSH BOWMAN Report Released Date/Time: Feb 05, 2023 03:10 PM Reporting Lab: [facility] [address] Performing Lab: [facility] [address] [place] [facility] BASIC METABOLI C PANEL+MG GLUCOSE [MASS/VOLU ME] IN SERUM OR PLASMA 140 mg/dL 70 - 100 02/13 H Specimen Type: PLASMA No comment entered. Ordering Provider: ANKUSH BOWMAN Report Released Date/Time: Feb 05, 2023 03:10 PM Reporting Lab: [facility] [address] Performing Lab: [facility] [address] [place] [facility] BASIC METABOLI C PANEL+MG SODIUM [MOLES/VOL UME] IN SERUM OR PLASMA 135 mmol/L 136 - 145 04/05 /2023 L Specimen Type: PLASMA No comment entered. Ordering Provider: ANKUSH BOWMAN Report Released Date/Time: Feb 05, 2023 03:10 PM Reporting Lab: [facility] [address] Performing Lab: [facility] [address] [place] [facility] BASIC METABOLI C PANEL+MG POTASSIUM [MOLES/VOL UME] IN SERUM OR PLASMA 4.0 mmol/L 3.5 - 5.1 02/13 Specimen Type: PLASMA No comment entered. Ordering Provider: ANKUSH BOWMAN Report Released Date/Time: Feb 05, 2023 03:10 PM Reporting Lab: [facility] [address] Performing Lab: [facility] [address] [place] [facility] BASIC METABOLI C PANEL+MG CHLORIDE [MOLES/VOL UME] IN SERUM OR PLASMA 99 mmol/L 98 - 107 02/13 Specimen Type: PLASMA No comment entered. Ordering Provider: ANKUSH BOWMAN Report Released Date/Time: Feb 05, 2023 03:10 PM Reporting Lab: [facility] [address] Performing Lab: [facility] [address] [place] [facility] BASIC METABOLI C PANEL+MG CARBON DIOXIDE, TOTAL [MOLES/VOL UME] IN SERUM OR PLASMA 29 mmol/L 22 - 29 02/13 Specimen Type: PLASMA No comment entered. Ordering Provider: ANKUSH BOWMAN Report Released Date/Time: Feb 05, 2023 03:10 PM Reporting Lab: [facility] [address] Performing Lab: [facility] [address] [place] [facility] BASIC METABOLI C PANEL+MG CALCIUM [MASS/VOLU ME] IN SERUM OR PLASMA 9.2 mg/dL 8.4 - 10.2 02/13 Specimen Type: PLASMA No comment entered. Ordering Provider: ANKUSH BOWMAN Report Released Date/Time: Feb 05, 2023 03:10 PM Reporting Lab: [facility] [address] Performing Lab: [facility] [address] [place] [facility] BASIC METABOLI C PANEL+MG MAGNESIUM [MASS/VOLU ME] IN SERUM OR PLASMA 2.0 mg/dL 1.6 - 2.6 02/13 Specimen Type: PLASMA No comment entered. Ordering Provider: ANKUSH BOWMAN Report Released Date/Time: Feb 05, 2023 03:10 PM Reporting Lab: [facility] [address] Performing Lab: [facility] [address] [place] [facility] BASIC METABOLI C PANEL+MG ANION GAP IN SERUM OR PLASMA 7 mmol/L 5 - 15 02/13 Specimen Type: PLASMA No comment entered. Ordering Provider: ANKUSH BOWMAN Report Released Date/Time: Feb 05, 2023 03:10 PM Reporting Lab: [facility] [address] Performing Lab: [place] [id number] [place] [facility] BASIC METABOLI C PANEL+MG GLOMERULAR FILTRATION RATE/1.73 SQ M.PREDICTE D [VOLUME RATE/AREA] IN SERUM, PLASMA OR BLOOD BY CREATININE -BASED FORMULA (CKD-EPI) >90 60 02/13 Specimen Type: PLASMA No comment entered. Ordering Provider: ANKUSH BOWMAN Report Released Date/Time: Feb 05, 2023 03:10 PM Reporting Lab: [facility] [address] Performing Lab: [facility] [address] [place] [facility] CYSTATIN C WITH EGFR CYSTATIN C [MASS/VOLU ME] IN SERUM OR PLASMA 1.27 mg/L 0.51 - 1.05 02/13 H Specimen Type: PLASMA No comment entered. Ordering Provider: ANKUSH BOWMAN Report Released Date/Time: Feb 05, 2023 03:10 PM Reporting Lab: [facility] [address] Performing Lab: [facility] [address] [place] [facility] CYSTATIN C WITH EGFR CYSTATIN C AND GLOMERULAR FILTRATION RATE BY CYSTATIN C-BASED FORMULA PANEL - SERUM OR PLASMA 53 60 02/13 L Specimen Type: PLASMA No comment entered. Ordering Provider: ANKUSH BOWMAN Report Released Date/Time: Feb 05, 2023 03:10 PM Reporting Lab: [facility] [address] Performing Lab: [facility] [address] [place] [facility] URINALYS IS COLOR OF URINE YELLOW 10/08 Specimen Type: URINE No comment entered. Ordering Provider: ANKUSH BOWMAN Report Released Date/Time: Sep 24, 2022 01:55 PM Reporting Lab: [facility] [address] Performing Lab: [facility] [address] [place] [facility] URINALYS IS SPECIFIC GRAVITY OF URINE 1.023 1.003 - 1.035 10/08 Specimen Type: URINE No comment entered. Ordering Provider: ANKUSH BOWMAN Report Released Date/Time: Sep 24, 2022 01:55 PM Reporting Lab: [facility] [id number] Performing Lab: [facility] [id number] [place] [facility] URINALYS IS BILIRUBIN. TOTAL [PRESENCE] IN URINE BY TEST STRIP NEGATIVE 10/08 Specimen Type: URINE No comment entered. Ordering Provider: ANKUSH BOWMAN Report Released Date/Time: Sep 24, 2022 01:55 PM Reporting Lab: [facility] [id number] Performing Lab: [facility] [id number] [place] [facility] URINALYS IS KETONES [MASS/VOLU ME] IN URINE BY TEST STRIP NEGATIVE 10/08 Specimen Type: URINE No comment entered. Ordering Provider: ANKUSH BOWMAN Report Released Date/Time: Sep 24, 2022 01:55 PM Reporting Lab: [facility] [address] Performing Lab: [facility] [address] [place] [facility] URINALYS IS GLUCOSE [MASS/VOLU ME] IN URINE BY TEST STRIP NEGATIVE mg/dL <30 - 30 10/08 Specimen Type: URINE No comment entered. Ordering Provider: ANKUSH BOWMAN Report Released Date/Time: Sep 24, 2022 01:55 PM Reporting Lab: [facility] [address] Performing Lab: [facility] [address] [place] [facility] URINALYS IS PROTEIN [MASS/VOLU ME] IN URINE BY TEST STRIP 30 mg/dL <20 - 20 10/08 Specimen Type: URINE No comment entered. Ordering Provider: ANKUSH BOWMAN Report Released Date/Time: Sep 24, 2022 01:55 PM Reporting Lab: [facility] [address] Performing Lab: [facility] [address] [place] [facility] URINALYS IS PH OF URINE BY TEST STRIP 7.5 5.0 - 8.0 10/08 Specimen Type: URINE No comment entered. Ordering Provider: ANKUSH BOWMAN Report Released Date/Time: Sep 24, 2022 01:55 PM Reporting Lab: [facility] [address] Performing Lab: [facility] [address] [place] [facility] URINALYS IS LEUKOCYTES [#/AREA] IN URINE SEDIMENT BY MICROSCOPY HIGH POWER FIELD >180/[HP F] 0 - 7 10/08 H Specimen Type: URINE No comment entered. Ordering Provider: ANKUSH BOWMAN Report Released Date/Time: Sep 24, 2022 01:55 PM Reporting Lab: [facility] [address] Performing Lab: [facility] [address] [place] [facility] URINALYS IS BACTERIA [PRESENCE] IN URINE SEDIMENT BY LIGHT MICROSCOPY MANY 10/08 Specimen Type: URINE No comment entered. Ordering Provider: ANKUSH BOWMAN Report Released Date/Time: Sep 24, 2022 01:55 PM Reporting Lab: [facility] [address] Performing Lab: [facility] [address] [place] [facility] URINALYS IS ERYTHROCYT ES [#/AREA] IN URINE SEDIMENT BY MICROSCOPY HIGH POWER FIELD 33 /[HPF] 0 - 3 10/08 H Specimen Type: URINE No comment entered. Ordering Provider: ANKUSH BOWMAN Report Released Date/Time: Sep 24, 2022 01:55 PM Reporting Lab: [facility] [address] Performing Lab: [facility] [address] [place] [facility] URINALYS IS APPEARANCE OF URINE EX.TURBI D 10/08 Specimen Type: URINE No comment entered. Ordering Provider: ANKUSH BOWMAN Report Released Date/Time: Sep 24, 2022 01:55 PM Reporting Lab: [facility] [address] Performing Lab: [facility] [address] [place] [facility] URINALYS IS EPITHELIAL CELLS.SQUA MOUS [#/AREA] IN URINE SEDIMENT BY MICROSCOPY HIGH POWER FIELD 1 /[HPF] 10/08 Specimen Type: URINE No comment entered. Ordering Provider: ANKUSH BOWMAN Report Released Date/Time: Sep 24, 2022 01:55 PM Reporting Lab: [facility] [address] Performing Lab: [facility] [address] [place] [facility] URINALYS IS HEMOGLOBIN [PRESENCE] IN URINE BY TEST STRIP 1+ 10/08 Specimen Type: URINE No comment entered. Ordering Provider: ANKUSH BOWMAN Report Released Date/Time: Sep 24, 2022 01:55 PM Reporting Lab: [facility] [address] Performing Lab: [facility] [address] [place] [facility] URINALYS IS NITRITE [PRESENCE] IN URINE BY TEST STRIP NEGATIVE 10/08 Specimen Type: URINE No comment entered. Ordering Provider: ANKUSH BOWMAN Report Released Date/Time: Sep 24, 2022 01:55 PM Reporting Lab: [facility] [address] Performing Lab: [facility] [address] [place] [facility] URINALYS IS LEUKOCYTE CLUMPS [#/VOLUME] IN URINE BY AUTOMATED COUNT PRESENT 10/08 Specimen Type: URINE No comment entered. Ordering Provider: ANKUSH BOWMAN Report Released Date/Time: Sep 24, 2022 01:55 PM Reporting Lab: [facility] [address] Performing Lab: [facility] [address] [place] [facility] URINALYS IS LEUKOCYTE ESTERASE [PRESENCE] IN URINE BY TEST STRIP 500 10/08 Specimen Type: URINE No comment entered. Ordering Provider: ANKUSH BOWMAN Report Released Date/Time: Sep 24, 2022 01:55 PM Reporting Lab: [facility] [address] Performing Lab: [facility] [address] [place] [facility] ALBUMIN ALBUMIN [MASS/VOLU ME] IN SERUM OR PLASMA 4.2 g/dL 3.5 - 5.2 10/08 Specimen Type: PLASMA No comment entered. Ordering Provider: ANKUSH BOWMAN Report Released Date/Time: Sep 24, 2022 01:55 PM Reporting Lab: [facility] [address] Performing Lab: [facility] [address] [place] [facility] PRE-ALBU MIN PREALBUMIN [MASS/VOLU ME] IN SERUM OR PLASMA 28.4 mg/dL 14.0 - 45.0 10/08 Specimen Type: SERUM No comment entered. Ordering Provider: ANKUSH BOWMAN Report Released Date/Time: Sep 24, 2022 01:55 PM Reporting Lab: [facility] [address] Performing Lab: [facility] [address] [place] [facility] CBC & DIFF LEUKOCYTES [#/VOLUME] IN BLOOD BY AUTOMATED COUNT 7.32 10*3/uL 4.0 - 11.0 10/08 Specimen Type: BLOOD Comment: Automated Differentia l Performed Ordering Provider: ANKUSH BOWMAN Report Released Date/Time: Sep 24, 2022 01:55 PM Reporting Lab: [facility] [address] Performing Lab: [facility] [address] [place] [facility] CBC & DIFF ERYTHROCYT ES [#/VOLUME] IN BLOOD BY AUTOMATED COUNT 4.80 10*6/uL 4.6 - 6.2 10/08 Specimen Type: BLOOD Comment: Automated Differentia l Performed Ordering Provider: ANKUSH BOWMAN Report Released Date/Time: Sep 24, 2022 01:55 PM Reporting Lab: [facility] [address] Performing Lab: [facility] [address] [place] [facility] CBC & DIFF HEMOGLOBIN [MASS/VOLU ME] IN BLOOD 14.7 g/dL 13.5 - 17.9 10/08 Specimen Type: BLOOD Comment: Automated Differentia l Performed Ordering Provider: ANKUSH BOWMAN Report Released Date/Time: Sep 24, 2022 01:55 PM Reporting Lab: [facility] [address] Performing Lab: [facility] [address] [place] [facility] CBC & DIFF HEMATOCRIT [VOLUME FRACTION] OF BLOOD BY AUTOMATED COUNT 44.2 41 - 54 10/08 Specimen Type: BLOOD Comment: Automated Differentia l Performed Ordering Provider: ANKUSH BOWMAN Report Released Date/Time: Sep 24, 2022 01:55 PM Reporting Lab: [facility] [address] Performing Lab: [facility] [address] [place] [facility] CBC & DIFF MCV [ENTITIC VOLUME] BY AUTOMATED COUNT 92.1 fL 80 - 100 10/08 Specimen Type: BLOOD Comment: Automated Differentia l Performed Ordering Provider: ANKUSH BOWMAN Report Released Date/Time: Sep 24, 2022 01:55 PM Reporting Lab: [facility] [address] Performing Lab: [facility] [address] [place] [facility] CBC & DIFF MCH [ENTITIC MASS] BY AUTOMATED COUNT 30.6 pg 27 - 33 10/08 Specimen Type: BLOOD Comment: Automated Differentia l Performed Ordering Provider: ANKUSH BOWMAN Report Released Date/Time: Sep 24, 2022 01:55 PM Reporting Lab: [facility] [address] Performing Lab: [facility] [address] [place] [facility] CBC & DIFF MCHC [MASS/VOLU ME] BY AUTOMATED COUNT 33.3 g/dL 32.0 - 37.5 10/08 Specimen Type: BLOOD Comment: Automated Differentia l Performed Ordering Provider: ANKUSH BOWMAN Report Released Date/Time: Sep 24, 2022 01:55 PM Reporting Lab: [facility] [address] Performing Lab: [facility] [address] [place] [facility] CBC & DIFF PLATELETS [#/VOLUME] IN BLOOD BY AUTOMATED COUNT 144 10*3/uL 150 - 400 10/08 L Specimen Type: BLOOD Comment: Automated Differentia l Performed Ordering Provider: ANKUSH BOWMAN Report Released Date/Time: Sep 24, 2022 01:55 PM Reporting Lab: [facility] [address] Performing Lab: [facility] [address] [place] [facility] CBC & DIFF PLATELET MEAN VOLUME [ENTITIC VOLUME] IN BLOOD BY AUTOMATED COUNT 10.8 fL 7.4 - 10.4 10/08 H Specimen Type: BLOOD Comment: Automated Differentia l Performed Ordering Provider: ANKUSH BOWMAN Report Released Date/Time: Sep 24, 2022 01:55 PM Reporting Lab: [facility] [address] Performing Lab: [facility] [address] [place] [facility] CBC & DIFF NEUTROPHIL S/100 LEUKOCYTES IN BLOOD BY MANUAL COUNT 55.5 10/08 Specimen Type: BLOOD Comment: Automated Differentia l Performed Ordering Provider: ANKUSH BOWMAN Report Released Date/Time: Sep 24, 2022 01:55 PM Reporting Lab: [facility] [address] Performing Lab: [facility] [address] [place] [facility] CBC & DIFF LYMPHOCYTE S/100 LEUKOCYTES IN BLOOD BY MANUAL COUNT 31.4 10/08 Specimen Type: BLOOD Comment: Automated Differentia l Performed Ordering Provider: ANKUSH BOWMAN Report Released Date/Time: Sep 24, 2022 01:55 PM Reporting Lab: [facility] [address] Performing Lab: [facility] [address] [place] [facility] CBC & DIFF MONOCYTES/ 100 LEUKOCYTES IN BLOOD BY AUTOMATED COUNT 10.2 10/08 Specimen Type: BLOOD Comment: Automated Differentia l Performed Ordering Provider: ANKUSH BOWMAN Report Released Date/Time: Sep 24, 2022 01:55 PM Reporting Lab: [facility] [address] Performing Lab: [facility] [address] [place] [facility] CBC & DIFF EOSINOPHIL S/100 LEUKOCYTES IN BLOOD BY AUTOMATED COUNT 2.2 10/08 Specimen Type: BLOOD Comment: Automated Differentia l Performed Ordering Provider: ANKUSH BOWMAN Report Released Date/Time: Sep 24, 2022 01:55 PM Reporting Lab: [facility] [address] Performing Lab: [facility] [address] [place] [facility] CBC & DIFF BASOPHILS/ 100 LEUKOCYTES IN BLOOD BY MANUAL COUNT 0.4 10/08 Specimen Type: BLOOD Comment: Automated Differentia l Performed Ordering Provider: ANKUSH BOWMAN Report Released Date/Time: Sep 24, 2022 01:55 PM Reporting Lab: [facility] [address] Performing Lab: [facility] [address] [place] [facility] CBC & DIFF ERYTHROCYT E DISTRIBUTI ON WIDTH [RATIO] BY AUTOMATED COUNT 15.9 11.5 - 14.5 10/08 H Specimen Type: BLOOD Comment: Automated Differentia l Performed Ordering Provider: ANKUSH BOWMAN Report Released Date/Time: Sep 24, 2022 01:55 PM Reporting Lab: [facility] [address] Performing Lab: [facility] [address] [place] [facility] CBC & DIFF LYMPHOCYTE S [#/VOLUME] IN BLOOD BY AUTOMATED COUNT 2.30 10*3/uL 1.0 - 4.0 10/08 Specimen Type: BLOOD Comment: Automated Differentia l Performed Ordering Provider: ANKUSH BOWMAN Report Released Date/Time: Sep 24, 2022 01:55 PM Reporting Lab: [facility] [address] Performing Lab: [facility] [address] [place] [facility] CBC & DIFF MONOCYTES [#/VOLUME] IN BLOOD BY AUTOMATED COUNT 0.75 10*3/uL 0.1 - 1.0 10/08 Specimen Type: BLOOD Comment: Automated Differentia l Performed Ordering Provider: ANKUSH BOWMAN Report Released Date/Time: Sep 24, 2022 01:55 PM Reporting Lab: [facility] [address] Performing Lab: [facility] [address] [place] [facility] CBC & DIFF NEUTROPHIL S [#/VOLUME] IN BLOOD BY AUTOMATED COUNT 4.06 10*3/uL 2.0 - 7.7 10/08 Specimen Type: BLOOD Comment: Automated Differentia l Performed Ordering Provider: ANKUSH BOWMAN Report Released Date/Time: Sep 24, 2022 01:55 PM Reporting Lab: [facility] [address] Performing Lab: [facility] [address] [place] [facility] CBC & DIFF EOSINOPHIL S [#/VOLUME] IN BLOOD BY AUTOMATED COUNT 0.16 10*3/uL 0 - 0.5 10/08 Specimen Type: BLOOD Comment: Automated Differentia l Performed Ordering Provider: ANKUSH BOWMAN Report Released Date/Time: Sep 24, 2022 01:55 PM Reporting Lab: [facility] [address] Performing Lab: [facility] [address] [place] [facility] CBC & DIFF BASOPHILS [#/VOLUME] IN BLOOD BY AUTOMATED COUNT 0.03 10*3/uL 0 - 0.2 10/08 Specimen Type: BLOOD Comment: Automated Differentia l Performed Ordering Provider: ANKUSH BOWMAN Report Released Date/Time: Sep 24, 2022 01:55 PM Reporting Lab: [facility] [address] Performing Lab: [facility] [address] [place] [facility] CBC & DIFF IG(META,MY MALACHI,PRO) 0.3 10/08 Specimen Type: BLOOD Comment: Automated Differentia l Performed Ordering Provider: ANKUSH BOWMAN Report Released Date/Time: Sep 24, 2022 01:55 PM Reporting Lab: [facility] [address] Performing Lab: [facility] [address] [place] [facility] CBC & DIFF IMMATURE GRANULOCYT ES [PRESENCE] IN BLOOD BY AUTOMATED COUNT 0.02 10*3/uL 0 - 0.1 10/08 Specimen Type: BLOOD Comment: Automated Differentia l Performed Ordering Provider: ANKUSH BOWMAN Report Released Date/Time: Sep 24, 2022 01:55 PM Reporting Lab: [facility] [address] Performing Lab: [facility] [address] [place] [facility] COMPREHE NSIVE METABOLI C PANEL+MG CREATININE [MASS/VOLU ME] IN SERUM OR PLASMA 0.7 mg/dL 0.7 - 1.2 10/08 Specimen Type: PLASMA No comment entered. Ordering Provider: ANKUSH BOWMAN Report Released Date/Time: Sep 24, 2022 01:55 PM Reporting Lab: [facility] [address] Performing Lab: [facility] [address] [place] [facility] COMPREHE NSIVE METABOLI C PANEL+MG UREA NITROGEN [MASS/VOLU ME] IN SERUM OR PLASMA 16 mg/dL 8 - 26 10/08 Specimen Type: PLASMA No comment entered. Ordering Provider: ANKUSH BOWMAN Report Released Date/Time: Sep 24, 2022 01:55 PM Reporting Lab: [facility] [address] Performing Lab: [facility] [address] [place] [facility] COMPREHE NSIVE METABOLI C PANEL+MG GLUCOSE [MASS/VOLU ME] IN SERUM OR PLASMA 94 mg/dL 70 - 100 10/08 Specimen Type: PLASMA No comment entered. Ordering Provider: ANKUSH BOWMAN Report Released Date/Time: Sep 24, 2022 01:55 PM Reporting Lab: [facility] [address] Performing Lab: [facility] [address] [place] [facility] COMPREHE NSIVE METABOLI C PANEL+MG SODIUM [MOLES/VOL UME] IN SERUM OR PLASMA 138 mmol/L 136 - 145 10/08 Specimen Type: PLASMA No comment entered. Ordering Provider: ANKUSH BOWMAN Report Released Date/Time: Sep 24, 2022 01:55 PM Reporting Lab: [facility] [address] Performing Lab: [facility] [address] [place] [facility] COMPREHE NSIVE METABOLI C PANEL+MG POTASSIUM [MOLES/VOL UME] IN SERUM OR PLASMA 3.9 mmol/L 3.5 - 5.1 10/08 Specimen Type: PLASMA No comment entered. Ordering Provider: ANKUSH BOWMAN Report Released Date/Time: Sep 24, 2022 01:55 PM Reporting Lab: [facility] [address] Performing Lab: [facility] [address] [place] [facility] COMPREHE NSIVE METABOLI C PANEL+MG CHLORIDE [MOLES/VOL UME] IN SERUM OR PLASMA 101 mmol/L 98 - 107 10/08 Specimen Type: PLASMA No comment entered. Ordering Provider: ANKUSH BOWMAN Report Released Date/Time: Sep 24, 2022 01:55 PM Reporting Lab: [facility] [address] Performing Lab: [facility] [address] [place] [facility] COMPREHE NSIVE METABOLI C PANEL+MG CARBON DIOXIDE, TOTAL [MOLES/VOL UME] IN SERUM OR PLASMA 28 mmol/L 22 - 29 10/08 Specimen Type: PLASMA No comment entered. Ordering Provider: ANKUSH BOWMAN Report Released Date/Time: Sep 24, 2022 01:55 PM Reporting Lab: [facility] [address] Performing Lab: [facility] [address] [place] [facility] COMPREHE NSIVE METABOLI C PANEL+MG CALCIUM [MASS/VOLU ME] IN SERUM OR PLASMA 9.7 mg/dL 8.4 - 10.2 10/08 Specimen Type: PLASMA No comment entered. Ordering Provider: ANKUSH BOWMAN Report Released Date/Time: Sep 24, 2022 01:55 PM Reporting Lab: [facility] [address] Performing Lab: [facility] [address] [place] [facility] COMPREHE NSIVE METABOLI C PANEL+MG PROTEIN [MASS/VOLU ME] IN SERUM OR PLASMA 7.6 g/dL 6.0 - 8.3 10/08 Specimen Type: PLASMA No comment entered. Ordering Provider: ANKUSH BOWMAN Report Released Date/Time: Sep 24, 2022 01:55 PM Reporting Lab: [facility] [address] Performing Lab: [facility] [address] [place] [facility] COMPREHE NSIVE METABOLI C PANEL+MG ALBUMIN [MASS/VOLU ME] IN SERUM OR PLASMA 4.2 g/dL 3.5 - 5.2 10/08 Specimen Type: PLASMA No comment entered. Ordering Provider: ANKUSH BOWMAN Report Released Date/Time: Sep 24, 2022 01:55 PM Reporting Lab: [facility] [address] Performing Lab: [facility] [address] [place] [facility] COMPREHE NSIVE METABOLI C PANEL+MG BILIRUBIN. TOTAL [MASS/VOLU ME] IN SERUM OR PLASMA 0.6 mg/dL 0.2 - 1.2 10/08 Specimen Type: PLASMA No comment entered. Ordering Provider: ANKUSH BOWMAN Report Released Date/Time: Sep 24, 2022 01:55 PM Reporting Lab: [facility] [address] Performing Lab: [facility] [address] [place] [facility] COMPREHE NSIVE METABOLI C PANEL+MG MAGNESIUM [MASS/VOLU ME] IN SERUM OR PLASMA 2.1 mg/dL 1.6 - 2.6 10/08 Specimen Type: PLASMA No comment entered. Ordering Provider: ANKUSH BOWMAN Report Released Date/Time: Sep 24, 2022 01:55 PM Reporting Lab: [facility] [address] Performing Lab: [facility] [address] [place] [facility] COMPREHE NSIVE METABOLI C PANEL+MG ANION GAP IN SERUM OR PLASMA 9 mmol/L 5 - 15 10/08 Specimen Type: PLASMA No comment entered. Ordering Provider: ANKUSH BOWMAN Report Released Date/Time: Sep 24, 2022 01:55 PM Reporting Lab: [facility] [address] Performing Lab: [facility] [address] [place] [facility] COMPREHE NSIVE METABOLI C PANEL+MG ALKALINE PHOSPHATAS E [ENZYMATIC ACTIVITY/V OLUME] IN SERUM OR PLASMA 96 U/L 40 - 150 10/08 Specimen Type: PLASMA No comment entered. Ordering Provider: ANKUSH BOWMAN Report Released Date/Time: Sep 24, 2022 01:55 PM Reporting Lab: [facility] [address] Performing Lab: [facility] [address] [place] [facility] COMPREHE NSIVE METABOLI C PANEL+MG ALANINE AMINOTRANS FERASE [ENZYMATIC ACTIVITY/V OLUME] IN SERUM OR PLASMA 29 U/L <55 - 55 10/08 Specimen Type: PLASMA No comment entered. Ordering Provider: ANKUSH BOWMAN Report Released Date/Time: Sep 24, 2022 01:55 PM Reporting Lab: [facility] [address] Performing Lab: [facility] [address] [place] [facility] COMPREHE NSIVE METABOLI C PANEL+MG ASPARTATE AMINOTRANS FERASE [ENZYMATIC ACTIVITY/V OLUME] IN SERUM OR PLASMA 22 U/L <34 - 34 10/08 Specimen Type: PLASMA No comment entered. Ordering Provider: ANKUSH BOWMAN Report Released Date/Time: Sep 24, 2022 01:55 PM Reporting Lab: [facility] [address] Performing Lab: [facility] [address] [place] [facility] COMPREHE NSIVE METABOLI C PANEL+MG GLOMERULAR FILTRATION RATE/1.73 SQ M.PREDICTE D [VOLUME RATE/AREA] IN SERUM, PLASMA OR BLOOD BY CREATININE -BASED FORMULA (CKD-EPI) >90 60 10/08 Specimen Type: PLASMA No comment entered. Ordering Provider: ANKUSH BOWMAN Report Released Date/Time: Sep 24, 2022 01:55 PM Reporting Lab: [facility] [address] Performing Lab: [facility] [address] [place] [facility] CYSTATIN C WITH EGFR CYSTATIN C [MASS/VOLU ME] IN SERUM OR PLASMA 1.38 mg/L 0.51 - 1.05 11/28 /2022 H Specimen Type: PLASMA No comment entered. Ordering Provider: ANKUSH BOWMAN Report Released Date/Time: Sep 24, 2022 01:55 PM Reporting Lab: [facility] [address] Performing Lab: [facility] [address] [place] [facility] CYSTATIN C WITH EGFR CYSTATIN C AND GLOMERULAR FILTRATION RATE BY CYSTATIN-B ASED FORMULA PANEL - SERUM OR PLASMA 48 60 10/08 L Specimen Type: PLASMA No comment entered. Ordering Provider: ANKUSH BOWMAN Report Released Date/Time: Sep 24, 2022 01:55 PM Reporting Lab: [facility] [address] Performing Lab: [facility] [address] [place] [facility] VIT D 25-OH,TO ZAMZAM 25-HYDROXY VITAMIN D3 [MASS/VOLU ME] IN SERUM OR PLASMA 54 ng/mL 12 - 50 10/08 H Specimen Type: SERUM No comment entered. Ordering Provider: ANKUSH BOWMAN Report Released Date/Time: Sep 24, 2022 01:55 PM Reporting Lab: [facility] [address] Performing Lab: [facility] [address] [place] [facility] Encounters Combined list of: 1) Encounters from Department of Veterans Affairs facilities going back up to thelast 18 months. 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 Location Location Details Encounter Type Encounter Number Reason For Visit Attending Provider ADM Date DC Date Status Disposition Source [place] [facility] Out[facility] Encounter [id number] [facility] HC PRO PHONE CALL 21-30 MIN [id number] Diagnos is: ICD-10- CM G82.20 Paraple mary kay, unspeci fied
Hever CASTRO 01/08 [facility] [place] [facility] Outpatient Encounter [id number] [facility] DIABETIC MANAGEMENT PROGRAM, [id number] [phone] Diagnos is: ICD-10- CM G82.20 Paraple mary kay, unspeci fied
TIGIST BASSETT 01/30 [facility] Outpatient Encounter [id number] [phone] 02/05 [facility] MTMS BY PHARM ADDL 15 MIN [id number] [phone] Diagnos is: ICD-10- CM G82.20 Paraple mary kay, unspeci fied
MANPREET BARRETTEY N 02/05 [facility] OT EVAL LOW COMPLEX 30 MIN [id number] [phone] Diagnos is: ICD-10- CM Z73.6 Limitat ion of activit ies due to disabil ity<br/ > Bryn PARDO 02/05 [facility] OFF/OP EST MAY X REQ PHY/QHP [phone] Diagnos is: ICD-10- CM G82.20 Paraple mary kay, unspeci fied
JOSUÉ ZAMORA J 02/05 [facility] PSYCH DIAGNOSTIC EVALUATION [phone] Diagnos is: ICD-10- CM F32.A Depress ion, unspeci fied
BINU GAMEZ 02/05 [facility] OFFICE O/P EST MOD 30-39 MIN [phone] Diagnos is: ICD-10- CM G82.20 Paraple mary kay, unspeci fied
ME LOGAN BOWMAN 02/05 [facility] PSYCH DIAGNOSTIC EVALUATION [phone] Diagnos is: ICD-10- CM G82.20 Paraple mary kay, unspeci fied
MAHI ABAD DESIRE J 02/05 [facility] MEDICAL NUTRITION INDIV IN [phone] Diagnos is: ICD-10- CM Z71.3 Dietary certified alcohol and drug counselor ing and surveil payal<b r/> Katia ARCHER 02/05 [facility] [place] [id number] Diagnos is: ICD-10- CM Z43.3 Encount er for attenti on to colosto my
VIOLA YOON 02/08 [facility] OFFICE O/P EST HI 40-54 MIN [id number] Diagnos is: ICD-10- CM G82.20 Paraple mary kay, unspeci fied
ME LOGAN BOWMAN 02/13 [facility] WHEELCHAIR MNGMENT TRAINING [id number] Diagnos is: ICD-10- CM Z73.6 Limitat ion of activit ies due to disabil ity<br/ > BOUSLOG,RY AN P 02/13 [facility] Outpatient Encounter [id number] 02/19 [facility] HC PRO PHONE CALL 11-20 MIN [id number] Diagnos is: ICD-10- CM Z73.6 Limitat ion of activit ies due to disabil ity<br/ > BOUSLOG,RY AN P 04/23 [facility] Outpatient Encounter [id number] 04/24 [facility] Outpatient Encounter [id number] 05/24 [facility] OFF/OP EST MAY X REQ PHY/QHP [id number] Diagnos is: ICD-10- CM G82.20 Paraple mary kay, unspeci fied
VIOLA YOON 05/28 [facility] WHEELCHAIR MNGMENT TRAINING [id number] Diagnos is: ICD-10- CM Z73.6 Limitat ion of activit ies due to disabil ity<br/ > BOUSLOG,RY AN P 06/10 [facility] Outpatient Encounter [id number] 10/28 [facility] Outpatient Encounter [id number] 11/20 [facility] Outpatient Encounter [id number] 05/12 [facility] Social History Combined list of available smoking, tobacco, and other social history from 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 Social History Type Response Date Comment [facility] e Tobacco smoking status [facility] NEVER USED 05/28/20 22 SADAF TREVINO [facility] This section is an empty social history section. [facility] Plan of Care List of future care activities from Department 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 Additional future care activities may be listed in the Assessment and Plan section. Date/Time Care Activity Care Activity Detail Facili ty 07/30/2024 AMBULATORY - REHAB MEDICINE AMBULATORY - REHAB MEDICINE [facility] 05/12/2024 Consult Order SCI/D WHEELCHAIR SEATING/POSITIONING OUTPT Cons Help Desk Engineer's Choice [facility] Advance Directives List of completed, amended, or rescinded Advance Directives on record at Department of 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 An actual copy of the Directive is not included. Date Advance Directive Provider Source 02/05/2023 ADVANCE DIRECTIVE DISCUSSION GUSTAVO ABAD [facility]
--- OUTSIDE RECORDS SUMMARY | 2024-06-29 12:46 | XMS_ITS | Clinical Summary ---
Author Organization [facility] Address [place], [place] [address] Care Team Providers Care Electric Sealing Machine Operator Name Role Phone Zelalem Cohen MD Unavailable [phone] May Randle) Unavailable Franklin Squires MD Primary Care Provider Fred Craft Unavailable [phone] Diane Charles MD Unavailable [phone] Julia Ware RN Unavailable [phone] Allergies Active Allergy Reactions Criticality Noted Date [...] bedIndications:Non-heal ing surgical wound, subsequent encounter Drive [facility] 8 inch low loss mattress and 1/2 rails. Semi-electric bed. Length of need 6 weeks. Bed vacation sales advisor:no 1 unit 018 Active acetaminophen (TYLENOL EXTRA STRGTH) 500 mg tabletIndications:fever ,pain Take 1,000 mg by mouth three times daily. Max acetaminophen dose: 4000mg in 24 hrs. Active sodium chloride (AYR SALINE NASL) Inhale 2-3 Sprays in the nostril(s) once daily if needed. 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 [employer] [place] Click Ostomy Barrier with belt tabs 60mm, Cut-to-Fit 01/16 - 2 11/18. Item #[id number]. 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 long term acute care registered nurse current use of anticoagulant 06/20/2023 01/08/2024 Cellulitis [...] delivery 04/16/2007 10/01/2007 Overview: S/P IVC Filter long term acute care registered nurse (current) use of anticoagulants 02/19/2007 09/27/2008 Depressive disorder, not elsewhere classified 02/14/20 07 01/15/2018 Abnormality of gait 12/24/2006 09/27/20 08 Urinary tract infection, site not specified 12/24/2006 01/15/2018 BENIGN ESSENTIAL HYPERTENSION 12/24/2006 04/17/2016 Overview: borderline Necrotizing fasciitis 2018 Type 2 diabetes mellitus Encounters Date Type Department Care Team Description 06/17/2024 Anticoagulation (warfarin) [address] [place] [address] 1, [facility] Anticoagulation (acelis) 06/11/[address] [place] [address] Franklin Squires MD Refill Request (Warfarin) 06/03/2024 Anticoagulation (warfarin) [address] [place] [address] 1, [facility] Anticoagulation (Acelis) 06/02/[address] [place] [address] Franklin Squires MD Refill Request (Oxycodone) 05/20/2024 Anticoagulation (warfarin) [address] [place] [address] 1, [facility] Anticoagulation (Acelis) 05/14/[address] [place] [address] Franklin Squires MD Refill Request (Baclofen) 05/14/[address] [place] [address] Franklin Squires MD Refill Request (Warfarin) 05/13/2024 Anticoagulation (warfarin) [address] [place] [address] 1, [facility] Anticoagulation (Acelis) 05/11/[address] [place] [address] Franklin Squires MD Form (Physician Orders and Home Health Certification and Plan of Care.) 05/06/2024 Anticoagulation (warfarin) [address] [place] [address] 1, [facility] Anticoagulation (Acelis) 05/05/[address] [address] Franklin Squires MD Form (60 Day Summary Report) 05/05/[address] [address] Franklin Squires MD Refill Request (Warfarin) 05/04/[address] [address] Franklin Squires MD Form 05/04/[address] [place] [address] Franklin Squires MD Refill Request (Oxycodone) 05/01/2024 Anticoagulation (warfarin) [address] [address] 1, [facility] Anticoagulation (Acelis) 04/29/[address] [address] Franklin Squires MD Refill Request (Duloxetine, Donepezil) 04/24/2024 2:49 PM CDT - 04/24/2024 2:50 PM CDT Emergency [facility] [address] [place] [address] Discharge Disposition: Against Medical Advice or Discontinued Care 04/24/2024 Travel 04/24/2024 Anticoagulation (warfarin) [facility] [address] [place] [address] 1, [facility] Anticoagulation (Acelis) 04/21/[address] [place] [phone] Franklin Squires MD Refill Request (Gabapentin) 04/20/[address] [phone] Franklin Squires MD Form (Physician Orders. Urinary Catheter - Suprapubic. ) 04/20/[address] [phone] Franklin Squires MD Refill Request (Gabapentin 400 mg) 04/13/[address] [phone] Franklin Squires MD Form (Standard Written Order: Rehab Accessories. Cushion, Quadtro Select HI PRO 20x20 or 11x11 CELL) 04/07/2024 Anticoagulation (warfarin) [address] [phone] 1, [facility] Anticoagulation (acelis) 04/07/[address] [phone] Franklin Squires MD Form (Physician Orders) 04/03/2024 2:30 PM CDT Office Visit [address] [place] [address] Franklin Squires MD Follow Up (6 week follow up) 04/03/2024 Travel 04/02/[address] [place] [phone] Franklin Squires MD Refill Request (Oxycodone) from [...] Description 07/02/2024 1:30 PM CDT Office Visit [address] [phone] Franklin Squires MD [address] [place] [phone] 07/08/2024 1:30 PM CDT Nurse/Clinic Staff Only [address] [phone] Health Maintenance Due Date Last Done Comments [...] HOME MONITORING 06/17/2024 Franklin Squires MD OTHER [facility] [address] [place] [address] from Last 3 Months Additional Health Concerns [...] months since positive culture): resides in acute/long term care social worker care, receiving hemodialysis, has chronic open wounds/skin damage, has long-term percutaneous indwelling medical devices Exclusions for nares collection (if <12 months since positive culture) include all of the previous exclusions plus patients on antibiotics 7 days prior to collection 03/13/2018 03/20/2024 Advance Directives Documents on File Type Date Recorded Patient Spot Remover Expl anation Healthcare Directive 05/09/2023 023 Healthcare [...] Code Status Discussion: Reviewed Preferences Care Teams Electric Sealing Machine Operator Relationship Specialty Start Date End Date Franklin Squires MD [address] [place] [address] PCP - General Family Practice 10/18/15 Zelalem Cohen MD Physical Therapist 03/13/12 May Randle), Physical Medicine and Rehabilitation 03/13/12 Luana, FAUSTINO Krueger [address] [place] [address] Feeder Operator Automatic 05/03/17 Diane Charles MD [address] [place] [address] Surgery - Urology 01/17/23 Julia Ware, VALERIE [address] [place] [address] Registered Nurse 07/17/23
--- OUTSIDE RECORDS SUMMARY | 2024-06-29 12:47 | XMS_ITS | Encounter Summary ---
Author Organization [facility] Address [address], [place] [address] Care Team Providers Care Flatwork Presser Name Role Phone Franklin Squires MD [...] on filedocumented in this encounter Care Teams Flatwork Presser Relationship Specialty Start Date End Date [facility]ires MD [address] [facility] [address] PCP - General Family Practice 03/08/16 documented as of this encounter
--- OUTSIDE RECORDS SUMMARY | 2024-06-29 12:47 | XMS_ITS | Encounter Summary ---
Author Organization [facility] Address [address], [place] [address] Care Team Providers Care Art Studio Teacher Name Role Phone Franklin Squires MD Primary Care Provider Encounter Details Date Type Department Care Team (Late st Contact Info) Description 11/23/2015 Correspondence External to External, [place] [address] LETTER [facility] Social History Tobacco Use [...] filedocumented in this encounter Care Teams Art Studio Teacher Relationship Specialty Start Date End Date Franklin Squires MD [address] [place] [address] [place] [address] PCP - General Family Practice 03/08/16 documented as of this encounter
--- OUTSIDE RECORDS SUMMARY | 2024-06-29 12:47 | XMS_ITS | Encounter Summary ---
Author Organization [facility] Address [address], [place] [address] Care Team Providers Care Curve Saw Operator Name Role Phone Franklin Squires MD Primary Care Provider Encounter Details Date Type Department Care Team (Late st Contact Info) Description 12/16/2013 Correspondence [facility] [address] [place] [address] Radiology, Provider MRI SAFETY SHEET AND COMPATIBILITY [...] Radiology, Provider - 12/16/2013 12:00 AM CST PAINTER documented in this encounter Plan of Treatment Not on file documented as of this encounter Visit Diagnoses Not on filedocumented in this encounter Care Teams Curve Saw Operator Relationship Specialty Start Date End Date Franklin Squires MD 100 [facility] [place] [address] PCP - General Family Practice 03/08/16 documented as of this encounter
--- OUTSIDE RECORDS SUMMARY | 2024-06-29 12:47 | XMS_ITS | Encounter Summary ---
Author Organization [facility] Address [address], [place] [address] Care Team Providers Care Pharmacy Sales Assistant Name Role Phone Franklin Squires MD Primary Care Provider Encounter Details Date Type Department Care Team (Late st Contact Info) Description 09/07/2014 Correspondence [facility] [address] [place] [address] Radiology, Provider MRI SAFETY SHEET AND COMPATIBILITY [...] filedocumented in this encounter Care Teams Pharmacy Sales Assistant Relationship Specialty Start Date End Date Franklin Squires MD [address] [place], [place] [address] [address] PCP - General Family Practice 03/08/16 documented as of this encounter
--- OUTSIDE RECORDS SUMMARY | 2024-06-29 12:47 | XMS_ITS | Encounter Summary ---
Author Organization [facility] Address [address], [place] [address] Care Team Providers Care Log Sorter Name Role Phone Franklin Squires MD Primary Care Provider Encounter Details Date Type Department Care Team (Late st Contact Info) Description 06/07/2015 Correspondence [facility] Radiology [address] [place] [address] Radiology, Provider MRI SAFETY SHEET AND COMPATIBILITY [...] on filedocumented in this encounter Care Teams Log Sorter Relationship Specialty Start Date End Date Franklin Squires MD [address] [place], [place] [address] [address] PCP - General Family Practice 03/08/16 documented as of this encounter
--- OUTSIDE RECORDS SUMMARY | 2024-06-29 12:47 | XMS_ITS | Encounter Summary ---
Author Organization [facility] [address] [address] Care Team Providers Care Instructor Business Education Name Role Phone Franklin Squires MD Primary Care Provider Encounter Details Date Type Department Care Team (Late st Contact Info) Description 02/05/2014 Correspondence [facility] Physical Therapy [address] [place] [address] Trudi Raymundo, PT [address] [place] [address] LETTER OF MEDICAL NECESSITY FOR A WHEELCHAIR [...] on filedocumented in this encounter Care Teams Instructor Business Education Relationship Specialty Start Date End Date Franklin Squires MD 100 [facility] [place] [address] PCP - General Family Practice 03/08/16 documented as of this encounter
--- OUTSIDE RECORDS SUMMARY | 2024-06-29 12:47 | XMS_ITS ---
Author Organization [facility] Address [address], [place] [address] Care Team Providers Care Stereo Compiler Name Role Phone Franklin Squires MD Primary Care Provider Active Problems Problem Noted Date Diagnosed Date Cataract 10/21/2015 Carpal tunnel syndrome 10/21/2015 Bilateral carpal tunnel syndrome 06/29/2015 Thrombophlebitis of deep veins of lower extremit y 04/25/2015 Paraplegia 03/30/2015 Osteoporosis 03/30/2015 Back pain, chronic 03/30/2015 Encounter for long-term (current) use of medicat ions 09/02/2014 Overview (07/03/2017): Overview: Signed 11/13/2011 Bianka Chavez RN............09/02/2014 10:04 AM ; Encounter for long-term (current) use of other medications Encounter for long-term (current) use of medicat ions 09/02/2014 Overview (02/09/2016): Overview: Signed 11/13/2011 Bianka Chavez RN............09/02/2014 10:04 AM Subdural hematoma 08/20/2014 Tinnitus of both ears 06/10/2014 Overview (06/07/2015): Overview: Began 3-4 weeks ago Bilateral sensorineural hearing loss 06/10/2014 Sensorineural hearing loss (SNHL) of both ears 0 06/10/2014 History of anticoagulant therapy 02/17/2014 [facility] current use of anticoagulant therapy 0 02/17/2014 Anxiety 03/23/2013 Vitamin D deficiency 08/10/2011 Hyperparathyroidism 08/07/2011 Peripheral edema 06/09/2010 Fever 05/04/2010 Bacterial meningitis 05/04/2010 Overview (07/03/2017): Probable Bacterial Meningitis 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 Current Oncology Plans No current plan information found. Past Plans Radiation Treatments * No radiation treatments are documented for this patient in [facility]. Treatments may have been administered in another system. Resolved Problems Problem Noted Date Diagnosed Date Resolved Date Gait abnormality 01/17/2012 02/09/2015 Back pain 01/17/2012 02/09/2015 Paraplegia 04/04/2011 02/09/2015 Osteoporosis 03/06/2011 02/09/2015 Urinary tract infection 12/24/200603/11
--- OUTSIDE RECORDS SUMMARY | 2024-06-29 12:47 | XMS_ITS | Encounter Summary ---
Author Organization [facility] Address [address] [address] Care Team Providers Care Horse And Wagon Driver Name Role Phone Franklin Squires MD Primary Care Provider Encounter Details Date Type Department Care Team (Latest Contact Info) Description 06/04/2014 Correspondence [facility] 401 Interventional Pain Management [address] [place] [address] Zelalem Cohen, DO [address] [place] [address] MEDICAID PT INFORMATION EMPI RECOVERY Social History [...] filedocumented in this encounter Care Teams Horse And Wagon Driver Relationship Specialty Start Date End Date Franklin Squires MD [address] [facility] [address] PCP - General Family Practice 03/08/16 documented as of this encounter
--- OUTSIDE RECORDS SUMMARY | 2024-06-29 12:47 | XMS_ITS | Encounter Summary ---
Author Organization [facility] Address [address] [address] Care Team Providers Care Global Sales Director Name Role Phone Franklin Squires MD [...] filedocumented in this encounter Care Teams Global Sales Director Relationship Specialty Start Date End Date Franklin Squires MD [address] [facility] [address] PCP - General Family Practice 03/08/16 documented as of this encounter
--- OUTSIDE RECORDS SUMMARY | 2024-06-29 12:47 | XMS_ITS | Encounter Summary ---
Author Organization [facility] Address [address], [place] [address] Care Team Providers Care Aircraft Pneudraulic Systems Mechanic Name Role Phone Franklin Squires MD Primary Care Provider Encounter Details Date Type Department Care Team (Late st Contact Info) Description 03/11/2014 Correspondence [facility] 401 Interventional Pain Management [address] [place] [address] Zelalem Cohen, DO [address] [place] [address] EMPI Social History Tobacco Use Types Packs/Day [...] filedocumented in this encounter Care Teams Aircraft Pneudraulic Systems Mechanic Relationship Specialty Start Date End Date Franklin Squires MD 100 [facility] [place] [address] PCP - General Family Practice 03/08/16 documented as of this encounter
--- OUTSIDE RECORDS SUMMARY | 2024-06-29 12:47 | XMS_ITS | Encounter Summary ---
Author Organization [facility] Address [address] [address] Care Team Providers Care Front Desk Specialist Name Role Phone Franklin Squires MD Primary Care Provider [phone] Encounter Details Date Type Department Care Team (Latest Contact Info) Description 12/11/2017 Correspondence Physiatry/Physical Medicine at [facility] [address] [place] [address] May Randle MD [address] [place] [address] [employer] Social History Tobacco Use [...] on filedocumented in this encounter Care Teams Front Desk Specialist Relationship Specialty Start Date End Date Franklin Squires MD [address] [place] [address] [place] [address] PCP - General Family Practice 03/08/16 documented as of this encounter
--- OUTSIDE RECORDS SUMMARY | 2024-06-29 12:47 | XMS_ITS | Encounter Summary ---
Author Organization [facility] Address [address], [place] [address] Care Team Providers Care Ocular Care Technologist Name Role Phone Franklin Squires MD Primary Care Provider Encounter Details Date Type Department Care Team (Late st Contact Info) Description 01/08/2013 Scanned History External to Transferred Record, Provider [facility] Social History Tobacco Use Types Packs/Day [...] on filedocumented in this encounter Care Teams Ocular Care Technologist Relationship Specialty Start Date End Date Franklin Squires MD 100 [facility] [address] PCP - General Family Practice 03/08/16 documented as of this encounter
--- OUTSIDE RECORDS SUMMARY | 2024-06-29 12:47 | XMS_ITS | Encounter Summary ---
Author Organization [facility] Address [address], [place] [address] Care Team Providers Care Rpg Programmer Name Role Phone Franklin Squires MD Primary Care Provider Encounter Details Date Type Department Care Team (Late st Contact Info) Description 04/20/[address] [address] Radiology, Provider MRI SAFETY SHEET AND COMPATIBILITY [...] on filedocumented in this encounter Care Teams Rpg Programmer Relationship Specialty Start Date End Date Franklin Squires MD 100 [facility] [place] [address] PCP - General Family Practice 03/08/16 documented as of this encounter
--- OUTSIDE RECORDS SUMMARY | 2024-06-29 12:47 | XMS_ITS | Encounter Summary ---
Author Organization [facility] Address [address] [address] Care Team Providers Care Cargo Service Supervisor Name Role Phone Franklin Squires MD Primary Care Provider Encounter Details Date Type Department Care Team (Late st Contact Info) Description 02/09/2016 Correspondence [facility] 401 NeuroSurgery 401 [facility] [place], [place] [id number] Jodi Aguila PA-C [address] [place] [address] PATIENT LIFT PRESCRIPTION Social History Tobacco Use [...] on filedocumented in this encounter Care Teams Cargo Service Supervisor Relationship Specialty Start Date End Date Franklin Squires MD 100 [facility] [place] [id number] PCP - General Family Practice 03/08/16 documented as of this encounter
--- OUTSIDE RECORDS SUMMARY | 2024-06-29 12:47 | XMS_ITS | Encounter Summary ---
Author Organization [facility] Address [address], [place] [address] Care Team Providers Care Ceramic Painter Name Role Phone Franklin Squires MD Primary Care Provider Encounter Details Date Type Department Care Team (Late st Contact Info) Description 04/24/2012 Correspondence [facility] Radiology [address] [place] [address] Radiology, Provider MRI SAFETY SHEET AND COMPATIBILITY [...] filedocumented in this encounter Care Teams Ceramic Painter Relationship Specialty Start Date End Date Franklin Squires MD 100 [facility] [place] [address] PCP - General Family Practice 03/08/16 documented as of this encounter
--- OUTSIDE RECORDS SUMMARY | 2024-06-29 12:47 | XMS_ITS | Encounter Summary ---
Author Organization [facility] Address [address] [address] Care Team Providers Care Business Management Associate Name Role Phone Franklin Squires MD Primary Care Provider Encounter Details Date Type Department Care Team (Late st Contact Info) Description 08/22/2014 Outside Hospital External to [facility]/C SUMMARY Social History Tobacco Use Types [...] filedocumented in this encounter Care Teams Business Management Associate Relationship Specialty Start Date End Date Franklin Squires MD 100 [facility] [place] [address] PCP - General Family Practice 03/08/16 documented as of this encounter
--- OUTSIDE RECORDS SUMMARY | 2024-06-29 12:47 | XMS_ITS | Encounter Summary ---
Author Organization [facility] Address [address], [place] [address] Care Team Providers Care As400 Developer Name Role Phone Franklin Squires MD Primary Care Provider Encounter Details Date Type Department Care Team (Late st Contact Info) Description 11/13/2012 Correspondence [facility] Radiology [address] [place] [address] Radiology, Provider MRI SAFETY SHEET AND COMPATIBILITY [...] RADIOLOGY, PROVIDER - 11/13/2012 12:00 AM CST ATION DIRECTOR documented in this encounter Plan of Treatment Not on file documented as of this encounter Visit Diagnoses Not on filedocumented in this encounter Care Teams As400 Developer Relationship Specialty Start Date End Date Franklin Squires MD 100 [facility] [place] [address] PCP - General Family Practice 03/08/16 documented as of this encounter
--- OUTSIDE RECORDS SUMMARY | 2024-06-29 12:47 | XMS_ITS | Encounter Summary ---
Author Organization [facility] Address [address], [place] [address] Care Team Providers Care Tooth Cutter Pinion Name Role Phone Franklin Squires MD Primary Care Provider Encounter Details Date Type Department Care Team (Late st Contact Info) Description 12/14/2014 Correspondence [facility] 401 Physical Medicine 401 [facility] [place] [address] May Randle MD [address] [place] [address] DETAILED PRODUCT DESCRIPTION Social History Tobacco Use [...] on filedocumented in this encounter Care Teams Tooth Cutter Pinion Relationship Specialty Start Date End Date Franklin Squires MD 100 [facility] [place] [address] PCP - General Family Practice 03/08/16 documented as of this encounter
--- OUTSIDE RECORDS SUMMARY | 2024-06-29 12:47 | XMS_ITS | Encounter Summary ---
Author Organization [facility] Address [address] [address] Care Team Providers Care Dev Ops Engineer Name Role Phone Franklin Squires MD Primary Care Provider Encounter Details Date Type Department Care Team (Late st Contact Info) Description 07/28/2014 Outside Hospital External to External, Provider No address [address] ER VISIT/TRANSFER Social History Tobacco Use [...] on filedocumented in this encounter Care Teams Dev Ops Engineer Relationship Specialty Start Date End Date Franklin Squires MD 100 [facility] [place] [address] PCP - General Family Practice 03/08/16 documented as of this encounter
--- OUTSIDE RECORDS SUMMARY | 2024-06-29 12:47 | XMS_ITS | Encounter Summary ---
Author Organization [facility] [address] [address] Care Team Providers Care Supervisor Weaving Name Role Phone Franklin Squires MD Primary Care Provider Encounter Details Date Type Department Care Team (Late st Contact Info) Description 11/10/2014 Correspondence [facility] Physical Therapy [address] [place] [address] Trudi Raymundo, PT [address] [place] [address] LETTER OF MEDICAL NECESSITY Social History Tobacco [...] filedocumented in this encounter Care Teams Supervisor Weaving Relationship Specialty Start Date End Date Franklin Squires MD 100 [facility] [place] [address] PCP - General Family Practice 03/08/16 documented as of this encounter
--- OUTSIDE RECORDS SUMMARY | 2024-06-29 12:47 | XMS_ITS | Encounter Summary ---
Author Organization [facility] [address] [address] Care Team Providers Care Secondary Social Studies Teacher Name Role Phone Franklin Squires MD Primary Care Provider Encounter Details Date Type Department Care Team (Late st Contact Info) Description 07/08/2015 Correspondence [facility] Physical Therapy [address] [place] [address] Trudi Raymundo, PT [address] [place] [address] ADDENDUM FOR LETTER OF MEDICAL NECESSITY Social [...] on filedocumented in this encounter Care Teams Secondary Social Studies Teacher Relationship Specialty Start Date End Date Franklin Squires MD 100 [facility] [place] [address] PCP - General Family Practice 03/08/16 documented as of this encounter
--- OUTSIDE RECORDS SUMMARY | 2024-06-29 12:47 | XMS_ITS | Encounter Summary ---
Author Organization [facility] Address [address], [place] [address] Care Team Providers Care Air Bag Builder Name Role Phone Franklin Squires MD [...] filedocumented in this encounter Care Teams Air Bag Builder Relationship Specialty Start Date End Date Franklin Squires MD 100 [facility] [place] [address] PCP - General Family Practice 03/08/16 documented as of this encounter
--- OUTSIDE RECORDS SUMMARY | 2024-06-29 12:47 | XMS_ITS | Encounter Summary ---
Author Organization [facility] [address], [place] [address] Care Team Providers Care Summer Law Clerk Name Role Phone Franklin Squires MD Primary Care Provider [phone] Encounter Details Date Type Department Care Team (Late st Contact Info) Description 10/26/2013 Correspondence [facility] Physical Therapy [address] [place] [address] Trudi Raymundo, PT [address] [place] [address] LETTER OF MEDICAL NECESSITY Social History Tobacco [...] Raymundo, PT - 10/26/2013 12:00 AM CST CH MANAGER documented in this encounter Plan of Treatment Not on file documented as of this encounter Visit Diagnoses Not on filedocumented in this encounter Care Teams Summer Law Clerk Relationship Specialty Start Date End Date Franklin Squires MD 100 [facility] [place] [address] PCP - General Family Practice 03/08/16 documented as of this encounter
--- OUTSIDE RECORDS SUMMARY | 2024-06-29 12:47 | XMS_ITS | Encounter Summary ---
Author Organization [facility] Address [address], [place] [address] Care Team Providers Care Rock Loader Name Role Phone Franklin Squires MD Primary Care Provider [phone] Encounter Details Date Type Department Care Team (Late st Contact Info) Description 09/17/2013 Correspondence External to External, [place] [address] EMPOWERMENT RULES Social History Tobacco Use Types [...] External, Provider - 09/17/2013 12:00 AM CST ATOR OPERATOR documented in this encounter Plan of Treatment Not on file documented as of this encounter Visit Diagnoses Not on filedocumented in this encounter Care Teams Rock Loader Relationship Specialty Start Date End Date Franklin Squires MD [address] [place] [address] [place] [address] PCP - General Family Practice 03/08/16 documented as of this encounter
--- OUTSIDE RECORDS SUMMARY | 2024-06-29 12:47 | XMS_ITS | Encounter Summary ---
Author Organization [facility] Address [address], [place] [address] Care Team Providers Care Mailroom Messenger Name Role Phone Franklin Squires MD Primary Care Provider [phone] Encounter Details Date Type Department Care Team (Late st Contact Info) Description 01/06/2016 Correspondence [facility] Radiology [address] [place] [address] Radiology, Provider MRI SAFETY SHEET AND COMPATIBILITY [...] on filedocumented in this encounter Care Teams Mailroom Messenger Relationship Specialty Start Date End Date Franklin Squires MD [address] [place], [place] [address] [address] PCP - General Family Practice 03/08/16 documented as of this encounter
--- OUTSIDE RECORDS SUMMARY | 2024-06-29 12:47 | XMS_ITS | Encounter Summary ---
Author Organization [facility] Address [address] [address] Care Team Providers Care Multimedia Project Manager Name Role Phone Franklin qSuires MD Primary Care Provider Encounter Details Date Type Department Care Team (Late st Contact Info) Description 08/20/2014 Outside Hospital External to [facility]P Social History Tobacco Use [...] filedocumented in this encounter Care Teams Multimedia Project Manager Relationship Specialty Start Date End Date Franklin Squires MD 100 [facility] [place] [address] PCP - General Family Practice 03/08/16 documented as of this encounter
--- OUTSIDE RECORDS SUMMARY | 2024-06-29 12:47 | XMS_ITS | Encounter Summary ---
Author Organization [facility] Address [address], [place] [address] Care Team Providers Care Hospital Corpsman Name Role Phone Franklin Squires MD Primary Care Provider [phone] Encounter Details Date Type Department Care Team (Late st Contact Info) Description 06/11/2014 Correspondence [facility] 401 Physical Medicine 401 [facility] [place] [address] May Randle MD [address] [place] [address] [facility] Social History Tobacco Use Types Packs/Day [...] filedocumented in this encounter Care Teams Hospital Corpsman Relationship Specialty Start Date End Date Franklin Squires MD 100 [facility] [place] [address] PCP - General Family Practice 03/08/16 documented as of this encounter
--- OUTSIDE RECORDS SUMMARY | 2024-06-29 12:47 | XMS_ITS | Encounter Summary ---
Author Organization [facility] Address [address] [address] Care Team Providers Care Academic Affairs Coordinator Name Role Phone Franklin Squires MD Primary Care Provider Encounter Details Date Type Department Care Team (Late st Contact Info) Description 12/16/2014 Correspondence External to External, [place] [address] MEDICARE PLAN OF CARE RECERT Social History [...] filedocumented in this encounter Care Teams Academic Affairs Coordinator Relationship Specialty Start Date End Date Franklin Squires MD [address] [place] [address] [facility] [place] [address] PCP - General Family Practice 03/08/16 documented as of this encounter
--- OUTSIDE RECORDS SUMMARY | 2024-06-29 12:47 | XMS_ITS | Clinical Summary ---
Author Organization [facility] Address [address] [place] [address] Care Team Providers Care Glove Cleaner Name Role Phone Franklin Squires MD Primary Care Provider [phone] Source Comments You are receiving this document [...] for each transition of care or referral. [employer] Allergies Active Allergy Reactions Criticality Noted Date [...] 0 06/10/2014 History of anticoagulant therapy 02/17/2014 [facility] current use of anticoagulant therapy 0 02/17/2014 [...] Comments Blood Pressure 120/63 01/18/2022 12:59 PM ESCORT VEHICLE DRIVER Pulse 87 01/18/2022 12:59 PM ESCORT VEHICLE DRIVER Temperature 36.3 ??C (97.4 ??F) 01/18/2022 12:59 [...] (2 - Tdap) 06/28/2021 06/28/2011 COVID-19 Vaccine (4 - season) 2023 08/06/2021, 01/25/2021, 01/02/2021 Influenza (#1) 2024 09/03/2021, 1007/2020, 08/20/2019, Additional history exists Pneumococcal [...] this topic Medical Devices Implanted Type Area Material Handler 2Nd Shift Device Identifier Shelf Expiration Date Model / Serial / Lot [id number] 4ml Tisseel Explanted:([place] ntity not on file) BIOLOGIC N/A: NECK Lynne Fenwall 09/10/2011 [id number] / [id number] / [id number] Description:posterior Cath Intrathecal Indura - [id number] Implanted:Qty: 1 on 05/09/2010 at [facility] DEVICE Right: LUMBAR SPINE [employer] 01/18/2012 8709 / N/A / [id number] Cath Intrathecal Indura - [id number] Implanted:Qty: 1 on 05/29/2010 at [facility] DEVICE [employer] 8709 / / Scr Indira Conic 7.3x80 - [id number] Implanted:Qty: 1 on 03/13/2011 at [facility] DEVICE Right: FEMUR DISTAL [employer] 02.207.28 0 / NONE / NONE Plt Lcp Cndl Rt 4.5x170 6h - [id number] Implanted:Qty: 1 on 03/13/2011 at [facility] DEVICE Right: FEMUR DISTAL [employer] 222.656 / NONE / NONE Description:6 hole 170mm rig ht 4.5mm lcp condylar plate Scr Didier Ss Sftp 4.5x40 - [id number] Implanted:Qty: 1 on 03/13/2011 at [facility] DEVICE Left: FEMUR DISTAL [employer] 214.840 / NONE / NONE Scr Didier Ss Sftp 4.5x50 - [id number] Implanted:Qty: 1 on 03/13/2011 at [facility] DEVICE Left: FEMUR DISTAL [employer] 214.850 / NONE / NONE Scr Indira Lk 5.0x80 - [id number] Implanted:Qty: 2 on 03/13/2011 at [facility] DEVICE Left: FEMUR DISTAL [employer] 02.205.08 0 / NONE / NONE Scr Indira Lk 5.0x85 - [id number] Implanted:Qty: 2 on 03/13/2011 at [facility] DEVICE Left: FEMUR DISTAL [employer] 02.205.08 5 / NONE / NONE Scr Lk Sftp T25 5.0x50 - [id number] Implanted:Qty: 1 on 03/13/2011 at [facility] DEVICE Left: FEMUR DISTAL [employer] 212.219 / NONE / NONE Scr Lk Sftp T25 5.0x60 - [id number] Implanted:Qty: 1 on 03/13/2011 at [facility] DEVICE Left: FEMUR DISTAL [employer] 212.221 / NONE / NONE Scr Indira Conic 7.3x85 - [id number] Implanted:Qty: 1 on 03/13/2011 at [facility] DEVICE Left: FEMUR DISTAL [employer] 02.207.28 5 / NONE / NONE Plt Lcp Cndl Lt 4.5x170 6h - [id number] Implanted:Qty: 1 on 03/13/2011 at [facility] DEVICE Left: FEMUR DISTAL [employer] 222.657 / NONE / NONE Description:6 hole 170mmleng th left 4.5mm lcp condylar plate. Scr Didier Sftp 3.5x60 F-Thrd - [id number] Implanted:Qty: 1 on 03/13/2011 at [facility] DEVICE Left: TIBIA PROXIMAL [employer] 204.860 / NONE / NONE Scr Star Lk Sftp 3.5x32 - [id number] Implanted:Qty: 1 on 03/13/2011 at [facility] DEVICE Left: TIBIA PROXIMAL [employer] 212.112 / NONE / NONE Scr Star Lk Sftp 3.5x55 - [id number] Implanted:Qty: 2 on 03/13/2011 at [facility] DEVICE Left: TIBIA PROXIMAL [employer] 212.123 / NONE / NONE Scr Star Lk Sftp 3.5x60 - [id number] Implanted:Qty: 2 on 03/13/2011 at [facility] DEVICE Left: TIBIA [employer]OXIMAL [employer] 212.124 / NONE / NONE Plt Lcp M/Prox Lt 3.5x94 4h - [id number] Implanted:Qty: 1 on 03/13/2011 at [facility] DEVICE Left: TIBIA PROXIMAL [employer] 239.955 / NONE / NONE Scr Didier Ss Sftp 4.5x36 - [id number] Implanted:Qty: 1 on 03/13/2011 at [facility] DEVICE Right: FEMUR DISTAL [employer] 214.836 / NONE / NONE Scr Didier Ss Sftp 4.5x44 - [id number] Implanted:Qty: 1 on 03/13/2011 at [facility] DEVICE Right: FEMUR DISTAL [employer] 214.844 / NONE / NONE Scr Indira Lk 5.0x75 - [id number] Implanted:Qty: 1 on 03/13/2011 at [facility] DEVICE Right: FEMUR DISTAL [employer] 02.205.07 5 / NONE / NONE Scr Indira Lk 5.0x85 - [id number] Implanted:Qty: 2 on 03/13/2011 at [facility] DEVICE Right: FEMUR DISTAL [employer] 02.205.08 5 / NONE / NONE Scr Lk Sftp T25 5.0x44 - [id number] Implanted:Qty: 1 on 03/13/2011 at [facility] DEVICE Right: FEMUR DISTAL [employer] 212.216 / NONE / NONE Scr Lk Sftp T25 5.0x65 - [id number] Implanted:Qty: 1 on 03/13/2011 at [facility] DEVICE Right: FEMUR DISTAL [employer] 212.222 / NONE / NONE Plt Lp T Ti Str 4h - [id number] Implanted:Qty: 3 on 07/28/2014 by Cooper Shelley MD at [facility] DEVICE Right: SKULL [employer] 421.504 / / Scr Matrix Sfdr 4mm - [id number] Implanted:Qty: 6 on 07/28/2014 by Cooper Shelley MD at [facility] DEVICE Right: SKULL [employer] 04.503.10 4.01 / / Lead Linear 3-4 8 Contact 50cm - [id number] Implanted:Qty: 1 on 03/08/2016 by Zelalem Cohen DO at [facility] DEVICE N/A: OTHER-SEE DESCRIPTION [facility] [facility] 09/10/2017 [id number] 2500 / / [id number] Description:LUMBAR Lead Linear 3-4 8 Contact 50cm - [id number] Implanted:Qty: 1 on 03/08/2016 by Zelalem Cohen DO at [facility] DEVICE N/A: OTHER-SEE DESCRIPTION [facility] 09/10/2017 [id number] 2500 / / [id number] Description:LUMBAR Lead Linear 3-4 8 Contact 50cm - [id number] Implanted:Qty: 1 on 03/08/2016 by Zelalem Cohen DO at [facility] DEVICE N/A: OTHER-SEE DESCRIPTION [facility] 09/10/2017 [id number] 2500 / / [id number] Description:LUMBAR Lead Linear 3-4 8 Contact 50cm - [id number] Implanted:Qty: 1 on 03/08/2016 by Zelalem Cohen DO at [facility] DEVICE N/A: OTHER-SEE DESCRIPTION [facility] 09/10/2017 [id number] 2500 / / [id number] Description:LUMBAR Lead Linear 3-4 8 Contact 50cm - [id number] Implanted:Qty: 1 on 05/24/2016 by Zelalem Cohen DO at [facility] DEVICE N/A: SPINE LUMBAR POSTERIOR [facility] 01/31/2018 [id number] 2500 / [id number] / Lead Linear 3-4 8 Contact 50cm - [id number] Implanted:Qty: 1 on 05/24/2016 by Zelalem Cohen DO at [facility] DEVICE N/A: SPINE LUMBAR POSTERIOR [facility] 04/26/2018 [id number] 2500 / [id number] / Lead Linear 3-4 8 Contact 50cm - [id number] Implanted:Qty: 1 on 05/24/2016 by Zelalem Cohen DO at [facility] DEVICE N/A: SPINE LUMBAR POSTERIOR [facility] 04/26/2018 [id number] 2500 / [id number] / Lead Linear 3-4 8 Contact 50cm - [id number] Implanted:Qty: 1 on 05/24/2016 by Zelalem Cohen DO at [facility] DEVICE N/A: SPINE LUMBAR POSTERIOR [facility] 04/26/2018 [id number] 2500 / [id number] / Generator Pulse Spectra - [id number] Implanted:Qty: 1 on 05/24/2016 by Zelalem Cohen DO at [facility] DEVICE N/A: SPINE LUMBAR POSTERIOR [facility] 05/08/2018 [id number] 20 / [id number] / [id number] [employer] - [id number] Implanted:Qty: 1 on 05/24/2016 by Zelalem Cohen DO at [facility] DEVICE N/A: SPINE LUMBAR POSTERIOR [facility] 05/02/2018 [id number] 60 / / [id number] [employer] - [id number] Implanted:Qty: 1 on 05/24/2016 by Zelalem Cohen DO at [facility] DEVICE N/A: SPINE LUMBAR POSTERIOR [facility] 02/28/2018 [id number] 60 / / [id number] Procedures Procedure Name Priority Date/Time Associated Diagnosis Comments CREATININE/GFR, WB POC Routine 01/06/2016 12:04 PM ESCORT VEHICLE DRIVER Back pain, 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 HGB A1C Routine 07/29/2014 3:19 AM CDT from Last 3 Months or Most Recently Relevant to Health Maintenance Results * CREATININE/GFR, WB POC (01/06/2016 12:04 PM ESCORT VEHICLE DRIVER) [facility] Creat Whole Blood 0.9 0.66 - 1.25 mg/dl [facility] GFR, Estimated >60 >60 ml/min/1.7 3m2 [facility] GFR, Est., If Black >60 >60 ml/min/1.7 3m2 [facility] 01/06/2016 12:0 4 PM ESCORT VEHICLE DRIVER 01/06/2016 12:21 PM ESCORT VEHICLE DRIVER Trae Blair MD LAB_1 [facility] [phone] * (ABNORMAL) HGB A1C (07/29/2014 3:19 AM CDT) [facility] Hgb A1c 6.4(H) 4.3 - 6.1 % [facility] Comment: The usual A1C goal for people with diabetes, age 18-75, is <8.0%. Physicians may recommend a higher or lower goal for specific individuals. 07/29/2014 3:19 AM CDT 07/29/2014 3:22 AM CDT Narrative [facility] - 07/29/2014 12:53 PM CDT Performed at [facility], [address] [place] [address] ??[id number] [place] Wei PA-C LAB_[address] [address] from Last 3 Months or Most Recently [...] 5:44 PM 07/28/2014 6:50 PM Care Teams Glove Cleaner Relationship Specialty Start Date End Date Franklin Squires MD 100 [facility] [place] [address] PCP - General Family Practice 03/08/16
--- OUTSIDE RECORDS SUMMARY | 2024-06-29 12:47 | XMS_ITS | Encounter Summary ---
Author Organization [facility] Address [address], [place] [address] Care Team Providers Care Supervisor Histology Name Role Phone Franklin Squires MD Primary Care Provider [phone] Encounter Details Date Type Department Care Team (Late st Contact Info) Description 07/23/2013 Correspondence [facility] 401 Interventional Pain Management 401 [facility] [place] [address] Zelalem Cohen DO [address] [place] [address] [employer] Social History Tobacco Use Types [...] Cohen MD - 07/23/2013 12:00 AM CDT MOTIVE ELECTRICAL FITTER documented in this encounter Plan of Treatment Not on file documented as of this encounter Visit Diagnoses Not on filedocumented in this encounter Care Teams Supervisor Histology Relationship Specialty Start Date End Date Franklin Squires MD 100 [facility] [place] [address] PCP - General Family Practice 03/08/16 documented as of this encounter
--- OUTSIDE RECORDS SUMMARY | 2024-06-29 12:47 | XMS_ITS | Encounter Summary ---
Author Organization [facility] Address [address] [address] Care Team Providers Care Bakery Technician Name Role Phone Franklin Squires MD Primary Care Provider Encounter Details Date Type Department Care Team (Late st Contact Info) Description 08/20/2014 Outside Hospital External to [facility] [...] on filedocumented in this encounter Care Teams Bakery Technician Relationship Specialty Start Date End Date Franklin Squires MD [address] [place], [place] [address] [address] PCP - General Family Practice 03/08/16 documented as of this encounter
--- OUTSIDE RECORDS SUMMARY | 2024-06-29 12:47 | XMS_ITS | Encounter Summary ---
Author Organization [facility] Address [address], [place] [address] Care Team Providers Care Forensic Dna Analyst Name Role Phone Franklin Squires MD [...] filedocumented in this encounter Care Teams Forensic Dna Analyst Relationship Specialty Start Date End Date Franklin Squires MD 100 [facility] [place] [address] PCP - General Family Practice 03/08/16 documented as of this encounter
--- OUTSIDE RECORDS SUMMARY | 2024-06-29 12:47 | XMS_ITS | Encounter Summary ---
Author Organization [facility] Address [address], [place] [address] Care Team Providers Care Lamp Mechanic Name Role Phone Franklin Squires MD Primary Care Provider Encounter Details Date Type Department Care Team (Late st Contact Info) Description 05/04/2014 Correspondence [facility] 401 Physical Medicine 401 [facility] [place] [address] May Randle MD [address] [place] [address] LETTER OF MEDICAL NECESSITY FOR A WHEELCHAIR [...] on filedocumented in this encounter Care Teams Lamp Mechanic Relationship Specialty Start Date End Date Franklin Squires MD 100 [facility] [place] [address] PCP - General Family Practice 03/08/16 documented as of this encounter
== END 2024-06-29 12:45 | disposition home or self-care (01) ==
LOC: WOUND 12:44
PROVIDERS: PCP Family Medicine; Visit Provider Nurse Practitioner Family
DX: L89.324 Pressure ulcer of left buttock, stage 4 (principal)
CPT/HCPCS: 11042

== ENCOUNTER 2024-07-06 12:37 | Outpatient (CLI) | payer MEDICARE, OTHER, SELFPAY ==
--- OUTSIDE RECORDS SUMMARY | 2024-07-06 12:40 | XMS_ITS ---
Author Organization [facility] Address [address] [address] Care Team Providers Care Local Company Flatbed Truck Driver Name Role Phone Franklin Squires [...] 0 06/10/2014 History of anticoagulant therapy 02/17/2014 care home current use of anticoagulant therapy 0 [...] treatments are documented for this patient in [facility]. Treatments may have been administered in another system. Resolved Problems Problem Noted Date Diagnosed Date Resolved Date Gait abnormality 01/17/2012 02/09/2015 Back pain 01/17/2012 02/09/2015 Paraplegia 04/04/2011 02/09/2015 Osteoporosis 03/06/2011 02/09/2015 Urinary tract infection 12/24/200603/11
--- OUTSIDE RECORDS SUMMARY | 2024-07-06 12:40 | XMS_ITS | Clinical Summary ---
[facility] Organization [facility] Address [address] [place] [address] Care Team Providers Care Residential Real Estate Sales Manager Name Role Phone Franklin Squires MD Primary Care Provider [phone] Source Comments You are receiving this document [...] for each transition of care or referral. [employer] - [employer] Allergies Active Allergy Reactions Criticality Noted Date [...] Comments Blood Pressure 120/63 01/18/2022 12:59 PM FRAME EXPANDER Pulse 87 01/18/2022 12:59 PM FRAME EXPANDER Temperature 36.3 ??C (97.4 ??F) 01/18/2022 12:59 [...] topic Medical Devices Implanted Type Area Group Fitness Manager Device Identifier Shelf Expiration Date Model / Serial / Lot [id number] 4ml Tisseel Explanted:([place] ntity not on file) BIOLOGIC N/A: NECK Lynne Fenwall 09/10/2011 [id number] / [id number] / [id number] Description:posterior Cath Intrathecal Indura - [id number] Implanted:Qty: 1 on 05/09/2010 at [facility] DEVICE Right: LUMBAR SPINE [employer] 01/18/2012 8709 / N/A / [id number] Cath Intrathecal Indura - [id number] Implanted:Qty: 1 on 05/29/2010 at [facility] DEVICE [employer] 8709 / / Scr Indira Conic 7.3x80 - [id number] Implanted:Qty: 1 on 03/13/2011 at [facility] DEVICE Right: FEMUR DISTAL [employer] 02.207.28 0 / NONE / NONE Plt Lcp Cndl Rt 4.5x170 6h - [id number] Implanted:Qty: 1 on 03/13/2011 at [facility] DEVICE Right: FEMUR DISTAL [employer] 222.656 / NONE / NONE Description:6 hole 170mm rig ht 4.5mm lcp condylar plate Scr Didier Ss Sftp 4.5x40 - [id number] Implanted:Qty: 1 on 03/13/2011 at [facility] DEVICE Left: FEMUR DISTAL [employer] 214.840 / NONE / NONE Scr Didier Ss Sftp 4.5x50 - [id number] Implanted:Qty: 1 on 03/13/2011 at [facility] DEVICE Left: FEMUR DISTAL [employer] 214.850 / NONE / NONE Scr Indira Lk 5.0x80 - [id number] Implanted:Qty: 2 on 03/13/2011 at [facility] DEVICE Left: FEMUR DISTAL [employer] 02.205.08 0 / NONE / NONE Scr Indira Lk 5.0x85 - [id number] Implanted:Qty: 2 on 03/13/2011 at [facility] DEVICE Left: FEMUR DISTAL [employer] 02.205.08 5 / NONE / NONE Scr Lk Sftp T25 5.0x50 - [id number] Implanted:Qty: 1 on 03/13/2011 at [facility] DEVICE Left: FEMUR DISTAL [employer] 212.219 / NONE / NONE Scr Lk Sftp T25 5.0x60 - [id number] Implanted:Qty: 1 on 03/13/2011 at [facility] DEVICE Left: FEMUR DISTAL [employer] 212.221 / NONE / NONE Scr Indira Conic 7.3x85 - [id number] Implanted:Qty: 1 on 03/13/2011 at [facility] DEVICE Left: FEMUR DISTAL [employer] 02.207.28 5 / NONE / NONE Plt Lcp Cndl Lt 4.5x170 6h - [id number] Implanted:Qty: 1 on 03/13/2011 at [facility] DEVICE Left: FEMUR DISTAL [employer] 222.657 / NONE / NONE Description:6 hole 170mmleng th left 4.5mm lcp condylar plate. Scr Didier Sftp 3.5x60 F-Thrd - [id number] Implanted:Qty: 1 on 03/13/2011 at [facility] DEVICE Left: TIBIA PROXIMAL [employer] 204.860 / NONE / NONE Scr Star Lk Sftp 3.5x32 - [id number] Implanted:Qty: 1 on 03/13/2011 at [facility] DEVICE Left: TIBIA [employer]OX[employer] 212.112 / NONE / NONE Scr Star Lk Sftp 3.5x55 - [id number] Implanted:Qty: 2 on 03/13/2011 at [facility] DEVICE Left: TIBIA [employer] 212.123 / NONE / NONE Scr Star Lk Sftp 3.5x60 - [id number] Implanted:Qty: 2 on 03/13/2011 at [facility] DEVICE Left: TIBIA [employer]OX[employer]AL [employer] 212.124 / NONE / NONE Plt Lcp M/Prox Lt 3.5x94 4h - [id number] Implanted:Qty: 1 on 03/13/2011 at [facility] DEVICE Left: TIBIA PROXIMAL [employer] 239.955 / NONE / NONE Scr Didier Ss Sftp 4.5x36 - [id number] Implanted:Qty: 1 on 03/13/2011 at [facility] DEVICE Right: FEMUR DISTAL [employer] 214.836 / NONE / NONE Scr Didier Ss Sftp 4.5x44 - [id number] Implanted:Qty: 1 on 03/13/2011 at [facility] DEVICE Right: FEMUR DISTAL [employer] 214.844 / NONE / NONE Scr Indira Lk 5.0x75 - [id number] Implanted:Qty: 1 on 03/13/2011 at [facility] DEVICE Right: FEMUR DISTAL [employer] 02.205.07 5 / NONE / NONE Scr Indira Lk 5.0x85 - [id number] Implanted:Qty: 2 on 03/13/2011 at [facility] DEVICE Right: FEMUR DISTAL [employer] 02.205.08 5 / NONE / NONE Scr Lk Sftp T25 5.0x44 - [id number] Implanted:Qty: 1 on 03/13/2011 at [facility] DEVICE Right: FEMUR DISTAL [employer] 212.216 / NONE / NONE Scr Lk Sftp T25 5.0x65 - [id number] Implanted:Qty: 1 on 03/13/2011 at [facility] DEVICE Right: FEMUR DISTAL [employer] 212.222 / NONE / NONE Plt Lp T Ti Str 4h - [id number] Implanted:Qty: 3 on 07/28/2014 by Cooper Shelley MD at [facility] DEVICE Right: SKULL [employer] 421.504 / / Scr Matrix Sfdr 4mm - [id number] Implanted:Qty: 6 on 07/28/2014 by Cooper Shelley MD at [facility] DEVICE Right: SKULL [employer] 04.503.10 4.01 / / Lead Linear 3-4 8 Contact 50cm - [id number] Implanted:Qty: 1 on 03/08/2016 by Zelalem Cohen DO at [facility] DEVICE N/A: OTHER-SEE DESCRIPTION [facility] 09/10/2017 [id number] 2500 / / [id number] Description:LUMBAR Lead Linear 3-4 8 Contact 50cm - [id number] Implanted:Qty: 1 on 03/08/2016 by Zelalem Cohen DO at [facility] DEVICE N/A: OTHER-SEE DESCRIPTION [employer] [facility] 09/10/2017 [id number] 2500 / / [id number] Description:LUMBAR Lead Linear 3-4 8 Contact 50cm - [id number] Implanted:Qty: 1 on 03/08/2016 by Zelalem Cohen DO at [facility] DEVICE N/A: OTHER-SEE DESCRIPTION [facility] 09/10/2017 [id number] 2500 / / [id number] Description:LUMBAR Lead Linear 3-4 8 Contact 50cm - [id number] Implanted:Qty: 1 on 03/08/2016 by Zelalem Cohen DO at [facility] DEVICE N/A: OTHER-SEE DESCRIPTION [facility] 09/10/2017 [id number] 2500 / / [id number] Description:LUMBAR Lead Linear 3-4 8 Contact 50cm - [id number] Implanted:Qty: 1 on 05/24/2016 by Zelalem Cohen DO at [facility] DEVICE N/A: SPINE LUMBAR POSTERIOR [facility] 01/31/2018 [id number] 2500 / [id number] / Lead Linear 3-4 8 Contact 50cm - [id number] Implanted:Qty: 1 on 05/24/2016 by Zelalem Cohen DO at [facility] DEVICE N/A: SPINE LUMBAR POSTERIOR [facility] 04/26/2018 [id number] 2500 / [id number] / Lead Linear 3-4 8 Contact 50cm - [id number] Implanted:Qty: 1 on 05/24/2016 by Zelalem Cohen DO at [facility] DEVICE N/A: SPINE LUMBAR POSTERIOR [facility] 04/26/2018 [id number] 2500 / [id number] / Lead Linear 3-4 8 Contact 50cm - [id number] Implanted:Qty: 1 on 05/24/2016 by Zelalem Cohen DO at [facility] DEVICE N/A: SPINE LUMBAR POSTERIOR [facility] 04/26/2018 [id number] 2500 / [id number] / Generator Pulse Spectra - [id number] Implanted:Qty: 1 on 05/24/2016 by Zelalem Cohen DO at [facility] DEVICE N/A: SPINE LUMBAR POSTERIOR [facility] 05/08/2018 [id number] 20 / [id number] / [id number] [place] [employer] - [id number] Implanted:Qty: 1 on 05/24/2016 by Zelalem Cohen DO at [facility] DEVICE N/A: SPINE LUMBAR POSTERIOR [facility] 05/02/2018 [id number] 60 / / [id number] [place] [employer] - [id number] Implanted:Qty: 1 on 05/24/2016 by Zelalem Cohen DO at [facility] DEVICE N/A: SPINE LUMBAR POSTERIOR [facility] 02/28/2018 [id number] 60 / / [id number] Procedures Procedure Name Priority Date/Time Associated Diagnosis Comments CREATININE/GFR, WB POC Routine 01/06/2016 12:04 PM FRAME EXPANDER Back pain, 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 HGB A1C Routine 07/29/2014 3:19 AM CDT from Last 3 Months or Most Recently Relevant to Health Maintenance Results * CREATININE/GFR, WB POC (01/06/2016 12:04 PM FRAME EXPANDER) [facility] Creat Whole Blood 0.9 0.66 - 1.25 mg/dl [facility] GFR, Estimated >60 >60 ml/min/1.7 3m2 [facility] GFR, Est., If Black >60 >60 ml/min/1.7 3m2 [facility] 01/06/2016 12:0 4 PM FRAME EXPANDER 01/06/2016 12:21 PM FRAME EXPANDER Trae Balir MD LAB_1 [facility] [phone] * (ABNORMAL) HGB A1C (07/29/2014 3:19 AM CDT) [facility] Hgb A1c 6.4(H) 4.3 - 6.1 % [facility] Comment: The usual A1C goal for people with diabetes, age 18-75, is <8.0%. Physicians may recommend a higher or lower goal for specific individuals. 07/29/2014 3:19 AM CDT 07/29/2014 3:22 AM CDT Narrative [facility] - 07/29/2014 12:53 PM CDT Performed at [facility], [address] [place] [address] ??[id number] [place] Wei PA-C LAB_[address] [address] from Last 3 Months or Most Recently [...] 5:44 PM 07/28/2014 6:50 PM Care Teams Residential Real Estate Sales Manager Relationship Specialty Start Date End Date Franklin Squires MD [address] [facility] [place] [address] PCP - General Family Practice 03/08/16
--- OUTSIDE RECORDS SUMMARY | 2024-07-06 12:40 | XMS_ITS | Encounter Summary ---
Author Organization [facility] Address [address] [address] Care Team Providers Care Bucket Chucker Name Role Phone Franklin Squires MD Primary Care Provider Encounter Details Date Type Department Care Team (Late st Contact Info) Description 02/09/2016 [facility] [address] [facility] [place], [place] [id number] Jodi Aguila PA-C [address] [place] [id number] PATIENT LIFT PRESCRIPTION Social History Tobacco Use [...] on filedocumented in this encounter Care Teams Bucket Chucker Relationship Specialty Start Date End Date Franklin Squires MD [address] [facility] [place] [address] PCP - General Family Practice 03/08/16 documented as of this encounter
--- OUTSIDE RECORDS SUMMARY | 2024-07-06 12:40 | XMS_ITS | Encounter Summary ---
[facility] Organization [facility] Address [address], [place] [address] Care Team Providers Care Cane Weigher Name Role Phone Franklin Squires MD Primary [...] on filedocumented in this encounter Care Teams Cane Weigher Relationship Specialty Start Date End Date [facility]ires MD [address] [facility] [place] [address] PCP - General Family Practice 03/08/16 documented as of this encounter
--- OUTSIDE RECORDS SUMMARY | 2024-07-06 12:40 | XMS_ITS | Continuity of Care Document ---
Author Name [facility] Organization [facility] Care Team Providers Care [employer] Programmer Name Role Phone [facility] Unavailable Unavailable Problems Combined list of problems from 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 It does not include entries that were removed or entered in error. Problem Status Onset Date Problem Type Date of Resolution Comments Source Abnormal liver function Active Condition [facility] Anemia (SCT 012277191) Active Condition [facility] Anxiety ([facility] [id number]) Active Condition [facility] Autonomic dysreflexia Active Condition [facility] Chronic Pain Syndrome (SCT 586470544) Active Condition [facility] Colostomy present Active Condition [facility] Constipation (SCT 61997242) Active Condition [facility] Continuous opioid dependence Active Condition [facility] COPD - Chronic Obstructive Pulmonary Disease (SCT 73821380) Active Condition [facility] Dementia Active Condition [facility] Depression (SCT 06165139) Active Condition [facility] Diabetes Mellitus Type 2 (SCT 84607429) Active Condition [facility] Ependymoma of spinal cord Active Condition [facility] Hearing Loss (SCT 58573770) Active Condition [facility] History of Deep Vein Thrombosis (SCT 955005737) Active Condition [facility] History of pressure injury Active Condition [facility] HTN - Hypertension (SCT 69338676) Active Condition [facility] Hyperlipidemia (SCT 18671057) Active Condition [facility] Hyponatremia Active Condition [facility] Long-term current use of anticoagulant Active Condition [facility] Neurogenic Bladder (SCT 142707909) Active Condition [facility] Neurogenic bowel Active Condition [facility] Osteoporosis ([facility] 87488230) Active Condition [facility] Paraplegia Active Condition [facility] Spasticity Active Condition [facility] Suprapubic urinary catheter in situ Active Condition [facility] Supraventricular tachycardia Active Condition [facility] Tinnitus ([facility] 93696733) Active Condition [facility] Vitamin D Deficiency ([facility] 2541127) Active Condition [facility] Diagnosis: ICD-10-CM Z73.6 Limitation of activities due to disability Active Diagnosis [facility] Diagnosis: ICD-10-CM G82.20 Paraplegia, unspecified Active Diagnosis [facility] Diagnosis: ICD-10-CM Z43.3 Encounter for attention to colostomy Active Diagnosis [facility] Diagnosis: ICD-10-CM Z71.3 Dietary counseling and surveillance Active Diagnosis [facility] Diagnosis: ICD-10-CM F32.A Depression, unspecified Active Diagnosis [facility] Medications Combined list of outpatient medications from Department of Defense and [facility] Affairs facilities.Medications provided include 1) outpatient [...] ed by: PIPO BARRETT Document ed at: [facility] ORAL ACTIVE Jagdish BARRETT 2022 [facility] AMLODIPINE BESYLATE (AMLODIPINE BESYLATE), 5 MG, TABLET, ORAL, [employer] 1000 ea. BOTTLE Active [id number] 4 2023 90 Pharmac y Data Transac tion Service Facilit y AMLODIPINE BESYLATE (amlodipine besylate), 5 MG, TABLET, ORAL, [employer], 1000 ea. BOTTLE Active [id number] 2023 90 Pharmac y Data Transac tion Service Facilit y AMLODIPINE BESYLATE 2.5MG TAB AMLODIPI NE BESYLATE 2.5MG TAB Non-VA TAKE TWO TABLETS BY MOUTH EVERY MORNING Feb 05, 2023 [place] Document ed by: PIPO BARRETT Document ed at: [facility] ORAL ACTIVE Jagdish BARRETT 2022 [facility] AMOX TR-POTASSIU M CLAVULANATE (AMOXICILLI N/POTASSIUM CLAV), 875-125 MG, TABLET, ORAL, [employer] [place], 20 ea. BOTTLE Active [id number] 2022 14 Pharmac y Data Transac tion Service Facilit y AMOXICILLIN -CLAVULANAT E POTASS (amoxicilli n/potassium clavulanate ), 875-125 MG, TABLET, ORAL, [employer] [place],, 20 ea. BOTTLE Active [id number] 2023 20 Pharmac y Data Transac tion Service Facilit y AMOXICILLIN -CLAVULANAT E POTASS (amoxicilli n/potassium clavulanate ), 875-125 MG, TABLET, ORAL, [facility] [facility] [place],, 20 ea. BOTTLE Active [id number] 2023 56 Pharmac y Data Transac tion Service Facilit y ARIPIPRAZOL E (aripiprazo le), 2 MG, TABLET, ORAL, [employer] [facility], 500 ea. BOTTLE Active [id number] 2023 180 Pharmac y Data Transac tion Service Facilit y ARIPIPRAZOL E (aripiprazo le), 2 MG, TABLET, ORAL, [employer] [facility], 500 ea. BOTTLE Active [id number] 2023 180 Pharmac y Data Transac tion Service Facilit y ARIPIPRAZOL E TAB ARIPIPRA ZOLE TAB Non-VA TAKE 2MG BY MOUTH TWICE A DAY May 29, 2022 Non-VA Document ed by: SHANTAL HANSON Document ed at: [facility] ORAL ACTIVE Jey HANSON 2021 [facility] ATIVAN (LORAZEPAM) , 0.5 MG, TABLET, ORAL, VALEANT, 100 ea. BOTTLE Active [id number] 2023 120 Pharmac y Data Transac [...] BIOCON PHARMA I, 1000 ea. BOTTLE Active [id number] 2023 90 Pharmac y Data Transac tion Service Facilit y ATORVASTATI N CALCIUM (atorvastat in calcium), 40 MG, TABLET, ORAL, [employer]ARMA I, 1000 ea. BOTTLE Active [id number] 2023 90 Pharmac y Data Transac tion Service Facilit y BACLOFEN (baclofen), 20 MG, TABLET, ORAL, [facility] [facility] 1000 ea. BOTTLE Active [id number] 2023 540 Pharmac y Data Transac tion Service Facilit y BACLOFEN (baclofen), 20 MG, TABLET, ORAL, [employer] [facility] 1000 ea. BOTTLE Active [id number] 2023 540 Pharmac y Data Transac tion Service Facilit y BACLOFEN 20MG TAB BACLOFEN 20MG TAB Non-VA TAKE TWO TABLETS BY MOUTH THREE TIMES A DAY Feb 05, 2023 Non-VA Document ed by: PIPO BARRETT Document ed at: [facility] ORAL ACTIVE Jagdish BARRETT 2022 [facility] BUPROPION HCL 150MG 12HR TAB,SA BUPROPIO N HCL 150MG 12HR TAB,SA Non-VA TAKE ONE TABLET BY MOUTH TWICE A DAY May 29, 2022 Non-VA Document ed by: SHANTAL HANSON Document ed at: [facility] ORAL ACTIVE Jey HANSON 2021 [facility] BUPROPION HCL SR (bupropion HCl), 150 MG, TAB SR 12H, ORAL, [employer] [facility], 60 ea. BOTTLE Active [id number] 2023 180 Pharmac y Data Transac tion Service Facilit y BUPROPION HCL SR (bupropion HCl), 150 MG, TAB SR 12H, ORAL, [employer], 60 ea. BOTTLE Active [id number] 2023 180 Pharmac y Data Transac [...] ORAL, [employer]ARM, 50 ea. BOTTLE Active [id number] 2023 70 Pharmac y Data Transac tion Service Facilit y DONEPEZIL HCL (DONEPEZIL HCL), 5 MG, TABLET, ORAL, [employer] 1000 ea. BOTTLE Active [id number] 2023 90 Pharmac y Data Transac tion Service Facilit y DONEPEZIL HCL (DONEPEZIL HCL), 5 MG, TABLET, ORAL, [employer] 1000 ea. BOTTLE Cancele d [id number] : 2023 0 Pharmac y Data Transac tion Service Facilit y DONEPEZIL HCL (DONEPEZIL HCL), 5 MG, TABLET, ORAL, [facility] 1000 ea. BOTTLE Active [id number] 2023 90 Pharmac y Data Transac tion Service Facilit y DONEPEZIL HCL 10MG TAB DONEPEZI L HCL 10MG TAB Non-VA TAKE ONE-HALF TABLET BY MOUTH EVERY DAY May 29, 2022 Non-VA Document ed by: SHANTAL HANSON Document ed at: [facility] ORAL ACTIVE Jey HANSON 2021 [facility] DULOXETINE HCL (duloxetine HCl), 60 MG, CAPSULE DR, ORAL, [employer] 1000 ea. BOTTLE Active [id number] 2023 180 Pharmac y Data Transac tion Service Facilit y DULOXETINE HCL (duloxetine HCl), 60 MG, CAPSULE DR, ORAL, [facility] 1000 ea. BOTTLE Active [id number] 2023 180 Pharmac y Data Transac tion Service Facilit y DULOXETINE HCL 30MG CAP,EC DULOXETI NE HCL 30MG CAP,EC Non-VA TAKE 2 CAPSULES BY MOUTH TWICE A DAY May 29, 2022 Non-VA Document ed by: SHANTAL HANSON Document ed at: [facility] ORAL ACTIVE Jey HANSON 2021 [facility] FAMOTIDINE (famotidine ), 20 MG, TABLET, ORAL, [employer] 1000 ea. BOTTLE Active [id number] 2023 180 Pharmac y Data Transac tion Service Facilit y FAMOTIDINE 20MG TAB FAMOTIDI NE 20MG TAB Non-VA TAKE ONE TABLET BY MOUTH TWICE A DAY May 29, 2022 Non-VA Document ed by: SHANTAL HANSON Document ed at: [facility] ORAL ACTIVE Jey HANSON 2021 [facility] FUROSEMIDE (furosemide ), 40 MG, TABLET, ORAL, [facility], 1000 ea. BOTTLE Active [id number] 2023 180 Pharmac y Data Transac tion Service Facilit y FUROSEMIDE 40MG TAB FUROSEMI DE 40MG TAB Non-VA TAKE ONE TABLET BY MOUTH TWICE A DAY May 29, 2022 Non-VA Document ed by: SHANTAL HANSON Document ed at: [facility] ORAL ACTIVE Jey HANSON 2021 [facility] GABAPENTIN (gabapentin ), 400 MG, CAPSULE, ORAL, [facility] 500 ea. BOTTLE Active [id number] 2023 270 Pharmac y Data Transac tion Service Facilit y GABAPENTIN (gabapentin ), 400 MG, CAPSULE, ORAL, [employer] [facility], 500 ea. BOTTLE Active [id number] 2023 270 Pharmac y Data Transac tion Service Facilit y GABAPENTIN (gabapentin ), 400 MG, CAPSULE, ORAL, [employer] [facility], 500 ea. BOTTLE Cancele d [id number] : 2023 0 Pharmac y Data Transac tion Service Facilit y GABAPENTIN 400MG CAP GABAPENT IN 400MG CAP Non-VA TAKE 1 CAPSULE BY MOUTH THREE TIMES A DAY May 29, 2022 Non-VA Document ed by: SHANTAL HANSON Document ed at: [facility] ORAL ACTIVE Jey HANSON 2021 [facility] LORAZEPAM (lorazepam) , 0.5 MG, TABLET, ORAL, [employer], 500 ea. BOTTLE Active [id number] 2023 120 Pharmac y Data Transac tion Service Facilit y LORAZEPAM (lorazepam) , 0.5 MG, TABLET, ORAL, [employer], 1000 ea. BOTTLE Active [id number] 2023 120 Pharmac y Data Transac tion Service Facilit y LORAZEPAM (lorazepam) , 0.5 MG, TABLET, ORAL, [employer], 1000 ea. BOTTLE Active [id number] 2023 120 Pharmac y Data Transac tion Service Facilit y LORAZEPAM (lorazepam) , 0.5 MG, TABLET, ORAL, [employer], 1000 ea. BOTTLE Active [id number] 2023 120 Pharmac y Data Transac tion Service Facilit y LORAZEPAM (lorazepam) , 0.5 MG, TABLET, ORAL, [employer], 500 ea. BOTTLE Active [id number] 2023 120 Pharmac y Data Transac tion Service Facilit y LORAZEPAM 0.5MG TAB LORAZEPA M 0.5MG TAB Non-VA TAKE ONE TABLET BY MOUTH THREE TIMES A DAY AND TAKE TWO TABLETS BY MOUTH AT BEDTIME Feb 05, 2023 Non-VA Document ed by: PIPO BARRETT Document ed at: [facility] ORAL ACTIVE Jagdish BARRETT 2022 [facility] [facility] [place] [facility] [place] Non-VA [...] ed by: PIPO BARRETT Document ed at: [facility] NASAL ACTIVE Jagdish BARRETT 2022 [facility] OXYCODONE HCL (OXYCODONE HCL), 10 MG, TABLET, ORAL, [employer] 100 ea. BOTTLE Active [id number] 2023 120 Pharmac y Data Transac tion Service Facilit y OXYCODONE HCL (OXYCODONE HCL), 10 MG, TABLET, ORAL, [employer] 100 ea. BOTTLE Active [id number] 2023 120 Pharmac y Data Transac tion Service Facilit y OXYCODONE HCL (OXYCODONE HCL), 10 MG, TABLET, ORAL, [employer] 100 ea. BOTTLE Active [id number] 2023 120 Pharmac y Data Transac tion Service Facilit y OXYCODONE HCL (OXYCODONE HCL), 10 MG, TABLET, ORAL, [employer] 100 ea. BOTTLE Active [id number] 2023 120 Pharmac y Data Transac tion Service Facilit y OXYCODONE HCL (OXYCODONE HCL), 10 MG, TABLET, ORAL, [employer] 100 ea. BOTTLE Active [id number] 2023 120 Pharmac y Data Transac tion Service Facilit y OXYCODONE HCL (OXYCODONE HCL), 10 MG, TABLET, ORAL, [employer] 100 ea. BOTTLE Active [id number] 2023 120 Pharmac y Data Transac tion Service Facilit y OXYCODONE HCL (OXYCODONE HCL), 10 MG, TABLET, ORAL, [employer] 100 ea. BOTTLE Active [id number] 2022 120 Pharmac y Data Transac tion Service Facilit y OXYCODONE HCL 5MG TAB OXYCODON E HCL 5MG TAB Non-VA TAKE TWO TABLETS BY MOUTH FOUR TIMES A DAY Feb 05, 2023 Non-VA Document ed by: PIPO BARRETT Document ed at: [facility] Jagdish BARRETT 2022 [facility] POTASSIUM CHLORIDE (potassium chloride), 10 MEQ, TAB ER PRT, ORAL, [employer], 100 ea. BOTTLE Active [id number] 2023 180 Pharmac y Data Transac tion Service Facilit y POTASSIUM CHLORIDE (potassium chloride), 10 MEQ, TAB ER PRT, ORAL, [employer], 100 ea. BOTTLE Active [id number] 2023 180 Pharmac y Data Transac tion Service Facilit y POTASSIUM CHLORIDE (potassium chloride), 20 MEQ, TAB ER PRT, ORAL, [employer], 100 ea. BOTTLE Active [id number] 2023 90 Pharmac y Data Transac [...] WHITLOCK&N/UNI LUIS, 30 g TUBE Cancele d [id number] : 2023 0 Pharmac y Data Transac tion Service Facilit y WARFARIN SODIUM (warfarin sodium), 5 MG, TABLET, ORAL, [employer] 1000 ea. BOTTLE Cancele d [id number] : 2022 0 Pharmac y Data Transac tion Service Facilit y WARFARIN SODIUM (WARFARIN SODIUM), 5 MG, TABLET, ORAL, [employer] [place], 1000 ea. BOTTLE Active [id number] 2023 25 Pharmac y Data Transac tion Service Facilit y WARFARIN SODIUM (WARFARIN SODIUM), 5 MG, TABLET, ORAL, [employer] [place], 1000 ea. BOTTLE Active [id number] 2023 12 Pharmac y Data Transac tion Service Facilit y WARFARIN SODIUM (WARFARIN SODIUM), 5 MG, TABLET, ORAL, [employer] [place], 1000 ea. BOTTLE Active [id number] 2023 40 Pharmac y Data Transac tion Service Facilit y WARFARIN SODIUM (WARFARIN SODIUM), 5 MG, TABLET, ORAL, [employer] [place], 1000 ea. BOTTLE Cancele d [id number] : 2022 0 Pharmac y Data Transac tion Service Facilit y WARFARIN SODIUM (warfarin sodium), 7.5 MG, TABLET, ORAL, [employer] [place], 100 ea. BOTTLE Active [id number] 2023 51 Pharmac y Data Transac tion Service Facilit y WARFARIN SODIUM (warfarin sodium), 7.5 MG, TABLET, ORAL, [employer] [place], 100 ea. BOTTLE Active [id number] 2023 78 Pharmac y Data Transac tion Service Facilit y WARFARIN TAB WARFARIN TAB Non-VA TAKE 5MG BY MOUTH SUN/THUR S AND TAKE 7.5MG BY MOUTH ALL OTHER DAYS Feb 05, 2023 Non-VA Document ed by: PIPO BARRETT Document ed at: [facility] ORAL ACTIVE Jagdish BARRETT 2022 [facility] Allergies, Adverse Reactions, Alerts Combined list of allergies from 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 It does not include entries that were removed or entered in error. Substance Category Reaction Severity Reaction type Status Date Reported Comments Source AMOXICILLIN Propensity to adverse reactions to drug (finding) Eruption active 2 [facility] METOLAZONE Propensity to adverse reactions to drug (finding) Itching active 2 [facility] MORPHINE Propensity to adverse reactions to drug (finding) Delirium active 2 [facility] PIPERACILLIN Propensity to adverse reactions to drug (finding) Eruption active 2 [facility] SULFA DRUGS Propensity to adverse reactions to drug (finding) Eruption active 2 [facility] TAZOBACTAM SODIUM Propensity to adverse reactions to drug (finding) Eruption active 2 [facility] Immunizations Combined list of available immunizations from the 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 Immunization Series Date Given Administered By Site Reaction Lot Number CVX Code Drug Manager Wealth Management Status Comments Source COVID-19 ([employer]), MRNA, LNP-S, BIVALENT, PF, 30 MCG/0.3 ML DOSE 2021 300 complet ed [facility] INFLUENZA, ADJUVANTED, QUADRIVALENT, PF 2021 205 complet ed [facility] INFLUENZA, UNSPECIFIED FORMULATION 2021 88 complet ed 's recall [facility] TD (ADULT), 5 LF TETANUS TOXOID, PRESERVATIVE FREE, ADSORBED 2021 113 complet ed [facility] INFLUENZA, ADJUVANTED, QUADRIVALENT, PF 2020 205 complet ed [facility] INFLUENZA, UNSPECIFIED FORMULATION 2020 88 complet ed [facility] COVID-19 ([employer]), MRNA, LNP-S, PF, 30 MCG/0.3 ML DOSE 3 2020 208 complet ed [facility] COVID-19 ([employer]), MRNA, LNP-S, PF, 30 MCG/0.3 ML DOSE 2 2020 208 complet ed [facility] COVID-19 ([employer]), MRNA, LNP-S, PF, 30 MCG/0.3 ML DOSE 1 2020 208 complet ed [facility] INFLUENZA, ADJUVANTED, QUADRIVALENT, PF 2019 205 complet ed [facility] INFLUENZA, ADJUVANTED, TRIVALENT, PF 2018 168 complet ed [facility] INFLUENZA, ADJUVANTED, TRIVALENT, PF 2017 168 complet ed [facility] INFLUENZA, HIGH-DOSE, TRIVALENT, PF 2016 135 complet ed [facility] INFLUENZA, ADJUVANTED, TRIVALENT, PF 2016 168 complet ed [facility] INFLUENZA, HIGH-DOSE, TRIVALENT, PF 2015 135 complet ed [facility] ZOSTER LIVE 2015 121 complet ed [facility] PNEUMOCOCCAL CONJUGATE PCV 13 2014 133 complet ed [facility] INFLUENZA, HIGH-DOSE, TRIVALENT, PF 2014 135 complet ed [facility] INFLUENZA, HIGH-DOSE, TRIVALENT, PF 2013 135 complet ed [facility] INFLUENZA, UNSPECIFIED FORMULATION 2013 88 complet ed [facility] INFLUENZA, SPLIT VIRUS, TRIVALENT, PRESERVATIVE 2012 141 complet ed [facility] ZOSTER LIVE 2012 121 complet ed [facility] INFLUENZA, SPLIT VIRUS, TRIVALENT, PRESERVATIVE 2011 141 complet ed [facility] INFLUENZA, SPLIT VIRUS, TRIVALENT, PF 2010 140 complet ed [facility] PNEUMOCOCCAL POLYSACCHARID E PPV23 2010 33 complet ed [facility] TDAP 2010 115 complet ed [facility] INFLUENZA, SPLIT VIRUS, TRIVALENT, PRESERVATIVE 2009 141 complet [facility] NOVEL INFLUENZA-H1N 1-09, ALL FORMULATIONS 2009 128 complet ed [facility] INFLUENZA, SPLIT VIRUS, TRIVALENT, PF 2008 140 complet ed [facility] PNEUMOCOCCAL POLYSACCHARID E PPV23 2008 33 complet ed [facility] INFLUENZA, SPLIT VIRUS, TRIVALENT, PRESERVATIVE 2008 141 complet ed [facility] INFLUENZA, SPLIT VIRUS, TRIVALENT, PRESERVATIVE 2007 141 complet ed [facility] INFLUENZA, SPLIT VIRUS, TRIVALENT, PRESERVATIVE 2005 141 complet ed [facility] INFLUENZA, SPLIT VIRUS, TRIVALENT, PRESERVATIVE 2004 141 complet ed [facility] PNEUMOCOCCAL POLYSACCHARID E PPV23 2004 33 complet ed [facility] INFLUENZA, SPLIT VIRUS, TRIVALENT, PRESERVATIVE 2003 141 complet ed [facility] Results Combined list of recent [...] Feb 05, 2023 03:10 PM Reporting Lab: [facility] [place] [address] Performing Lab: [facility] [place] [address] [place] [facility] BASIC METABOLI C PANEL+MG UREA NITROGEN [MASS/VOLU ME] IN SERUM OR PLASMA 15 mg/dL 8 - 02/13 Specimen Type: PLASMA No comment entered. Ordering Provider: ANKUSH BOWMAN Report Released Date/Time: Feb 05, 2023 03:10 PM Reporting Lab: [facility] [place] [address] Performing Lab: [facility] [place] [address] [place] [facility] BASIC METABOLI C PANEL+MG GLUCOSE [MASS/VOLU ME] IN SERUM OR PLASMA 140 mg/dL 70 - 100 02/13 H Specimen Type: PLASMA No comment entered. Ordering Provider: ANKUSH BOWMAN Report Released Date/Time: Feb 05, 2023 03:10 PM Reporting Lab: [facility] [place] [address] Performing Lab: [facility] [place] [address] [place] [facility] BASIC METABOLI C PANEL+MG SODIUM [MOLES/VOL UME] IN SERUM OR PLASMA 135 mmol/L 136 - 145 04/05 /2023 L Specimen Type: PLASMA No comment entered. Ordering Provider: ANKUSH BOWMAN Report Released Date/Time: Feb 05, 2023 03:10 PM Reporting Lab: [facility] [place] [address] Performing Lab: [facility] [place] [address] [place] [facility] BASIC METABOLI C PANEL+MG POTASSIUM [MOLES/VOL UME] IN SERUM OR PLASMA 4.0 mmol/L 3.5 - 5.1 02/13 Specimen Type: PLASMA No comment entered. Ordering Provider: ANKUSH BOWMAN Report Released Date/Time: Feb 05, 2023 03:10 PM Reporting Lab: [facility] [place] [address] Performing Lab: [facility] [place] [address] [place] [facility] BASIC METABOLI C PANEL+MG CHLORIDE [MOLES/VOL UME] IN SERUM OR PLASMA 99 mmol/L 98 - 107 02/13 Specimen Type: PLASMA No comment entered. Ordering Provider: ANKUSH BOWMAN Report Released Date/Time: Feb 05, 2023 03:10 PM Reporting Lab: [facility] [place] [address] Performing Lab: [facility] [place] [address] [place] [facility] BASIC METABOLI C PANEL+MG CARBON DIOXIDE, TOTAL [MOLES/VOL UME] IN SERUM OR PLASMA 29 mmol/L 22 - 29 02/13 Specimen Type: PLASMA No comment entered. Ordering Provider: ANKUSH BOWMAN Report Released Date/Time: Feb 05, 2023 03:10 PM Reporting Lab: [facility] [place] [address] Performing Lab: [facility] [place] [address] [place] [facility] BASIC METABOLI C PANEL+MG CALCIUM [MASS/VOLU ME] IN SERUM OR PLASMA 9.2 mg/dL 8.4 - 10.2 02/13 Specimen Type: PLASMA No comment entered. Ordering Provider: ANKUSH BOWMAN Report Released Date/Time: Feb 05, 2023 03:10 PM Reporting Lab: [facility] [place] [address] Performing Lab: [facility] [place] [address] [place] [facility] BASIC METABOLI C PANEL+MG MAGNESIUM [MASS/VOLU ME] IN SERUM OR PLASMA 2.0 mg/dL 1.6 - 2.6 02/13 Specimen Type: PLASMA No comment entered. Ordering Provider: ANKUSH BOWMAN Report Released Date/Time: Feb 05, 2023 03:10 PM Reporting Lab: [facility] [place] [address] Performing Lab: [facility] [place] [address] [place] [facility] BASIC METABOLI C PANEL+MG ANION GAP IN SERUM OR PLASMA 7 mmol/L 5 - 15 02/13 Specimen Type: PLASMA No comment entered. Ordering Provider: ANKUSH BOWMAN Report Released Date/Time: Feb 05, 2023 03:10 PM Reporting Lab: [facility] [place] [address] Performing Lab: [place] [id number] [place] [facility] BASIC METABOLI C PANEL+MG GLOMERULAR FILTRATION RATE/1.73 SQ M.PREDICTE D [VOLUME RATE/AREA] IN SERUM, PLASMA OR BLOOD BY CREATININE -BASED FORMULA (CKD-EPI) >90 60 02/13 Specimen Type: PLASMA No comment entered. Ordering Provider: ANKUSH BOWMAN Report Released Date/Time: Feb 05, 2023 03:10 PM Reporting Lab: [facility] [place] [address] Performing Lab: [facility] [place] [address] [place] [facility] CYSTATIN C WITH EGFR CYSTATIN C [MASS/VOLU ME] IN SERUM OR PLASMA 1.27 mg/L 0.51 - 1.05 02/13 H Specimen Type: PLASMA No comment entered. Ordering Provider: ANKUSH BOWMAN Report Released Date/Time: Feb 05, 2023 03:10 PM Reporting Lab: [facility] [place] [address] Performing Lab: [facility] [place] [address] [place] [facility] CYSTATIN C WITH EGFR CYSTATIN C AND GLOMERULAR FILTRATION RATE BY CYSTATIN C-BASED FORMULA PANEL - SERUM OR PLASMA 53 60 02/13 L Specimen Type: PLASMA No comment entered. Ordering Provider: ANKUSH BOWMAN Report Released Date/Time: Feb 05, 2023 03:10 PM Reporting Lab: [facility] [place] [id number] Performing Lab: [facility] [place] [address] [place] [facility] URINALYS IS COLOR OF URINE YELLOW 10/08 Specimen Type: URINE No comment entered. Ordering Provider: ANKUSH BOWMAN Report Released Date/Time: Sep 24, 2022 01:55 PM Reporting Lab: [facility] [place] [address] Performing Lab: [facility] [place] [address] [place] [facility] [facility] URINALYS IS SPECIFIC GRAVITY OF URINE 1.023 1.003 - 1.035 10/08 Specimen Type: URINE No comment entered. Ordering Provider: ANKUSH BOWMAN Report Released Date/Time: Sep 24, 2022 01:55 PM Reporting Lab: [facility] [place] [address] Performing Lab: [facility] [place] [address] [place] [facility] URINALYS IS BILIRUBIN. TOTAL [PRESENCE] IN URINE BY TEST STRIP NEGATIVE 10/08 Specimen Type: URINE No comment entered. Ordering Provider: ANKUSH BOWMAN Report Released Date/Time: Sep 24, 2022 01:55 PM Reporting Lab: [facility] [place] [address] Performing Lab: [facility] [place] [address] [place] [facility] URINALYS IS KETONES [MASS/VOLU ME] IN URINE BY TEST STRIP NEGATIVE 10/08 Specimen Type: URINE No comment entered. Ordering Provider: ANKUSH BOWMAN Report Released Date/Time: Sep 24, 2022 01:55 PM Reporting Lab: [facility] [place] [address] Performing Lab: [facility] [place] [address] [place] [facility] URINALYS IS GLUCOSE [MASS/VOLU ME] IN URINE BY TEST STRIP NEGATIVE mg/dL <30 - 30 10/08 Specimen Type: URINE No comment entered. Ordering Provider: ANKUSH BOWMAN Report Released Date/Time: Sep 24, 2022 01:55 PM Reporting Lab: [facility] [place] [address] Performing Lab: [facility] [place] [address] [place] [facility] URINALYS IS PROTEIN [MASS/VOLU ME] IN URINE BY TEST STRIP 30 mg/dL <20 - 20 10/08 Specimen Type: URINE No comment entered. Ordering Provider: ANKUSH BOWMAN Report Released Date/Time: Sep 24, 2022 01:55 PM Reporting Lab: [facility] [place] [address] Performing Lab: [facility] [place] [address] [place] [facility] URINALYS IS PH OF URINE BY TEST STRIP 7.5 5.0 - 8.0 10/08 Specimen Type: URINE No comment entered. Ordering Provider: ANKUSH BOWMAN Report Released Date/Time: Sep 24, 2022 01:55 PM Reporting Lab: [facility] [place] [address] Performing Lab: [facility] [place] [address] [place] [facility] URINALYS IS LEUKOCYTES [#/AREA] IN URINE SEDIMENT BY MICROSCOPY HIGH POWER FIELD >180/[HP F] 0 - 7 10/08 H Specimen Type: URINE No comment entered. Ordering Provider: ANKUSH BOWMAN Report Released Date/Time: Sep 24, 2022 01:55 PM Reporting Lab: [facility] [place] [address] Performing Lab: [facility] [place] [address] [place] [facility] URINALYS IS BACTERIA [PRESENCE] IN URINE SEDIMENT BY LIGHT MICROSCOPY MANY 10/08 Specimen Type: URINE No comment entered. Ordering Provider: ANKUSH BOWMAN Report Released Date/Time: Sep 24, 2022 01:55 PM Reporting Lab: [facility] [place] [address] Performing Lab: [facility] [place] [address] [place] [facility] URINALYS IS ERYTHROCYT ES [#/AREA] IN URINE SEDIMENT BY MICROSCOPY HIGH POWER FIELD 33 /[HPF] 0 - 3 10/08 H Specimen Type: URINE No comment entered. Ordering Provider: ANKUSH BOWMAN Report Released Date/Time: Sep 24, 2022 01:55 PM Reporting Lab: [facility] [place] [address] Performing Lab: [facility] [place] [address] [place] [facility] URINALYS IS APPEARANCE OF URINE EX.TURBI D 10/08 Specimen Type: URINE No comment entered. Ordering Provider: ANKUSH BOWMAN Report Released Date/Time: Sep 24, 2022 01:55 PM Reporting Lab: [facility] [place] [address] Performing Lab: [facility] [place] [address] [place] [facility] URINALYS IS EPITHELIAL CELLS.SQUA MOUS [#/AREA] IN URINE SEDIMENT BY MICROSCOPY HIGH POWER FIELD 1 /[HPF] 10/08 Specimen Type: URINE No comment entered. Ordering Provider: ANKUSH BOWMAN Report Released Date/Time: Sep 24, 2022 01:55 PM Reporting Lab: [facility] [place] [address] Performing Lab: [facility] [place] [address] [place] [facility] URINALYS IS HEMOGLOBIN [PRESENCE] IN URINE BY TEST STRIP 1+ 10/08 Specimen Type: URINE No comment entered. Ordering Provider: ANKUSH BOWMAN Report Released Date/Time: Sep 24, 2022 01:55 PM Reporting Lab: [facility] [place] [address] Performing Lab: [facility] [place] [address] [place] [facility] URINALYS IS NITRITE [PRESENCE] IN URINE BY TEST STRIP NEGATIVE 10/08 Specimen Type: URINE No comment entered. Ordering Provider: ANKUSH BOWMAN Report Released Date/Time: Sep 24, 2022 01:55 PM Reporting Lab: [facility] [place] [address] Performing Lab: [facility] [place] [address] [place] [facility] URINALYS IS LEUKOCYTE CLUMPS [#/VOLUME] IN URINE BY AUTOMATED COUNT PRESENT 10/08 Specimen Type: URINE No comment entered. Ordering Provider: ANKUSH BOWMAN Report Released Date/Time: Sep 24, 2022 01:55 PM Reporting Lab: [facility] [place] [address] Performing Lab: [facility] [place] [address] [place] [facility] URINALYS IS LEUKOCYTE ESTERASE [PRESENCE] IN URINE BY TEST STRIP 500 10/08 Specimen Type: URINE No comment entered. Ordering Provider: ANKUSH BOWMAN Report Released Date/Time: Sep 24, 2022 01:55 PM Reporting Lab: [facility] [place] [address] Performing Lab: [facility] [place] [address] [place] [facility] ALBUMIN ALBUMIN [MASS/VOLU ME] IN SERUM OR PLASMA 4.2 g/dL 3.5 - 5.2 10/08 Specimen Type: PLASMA No comment entered. Ordering Provider: ANKUSH BOWMAN Report Released Date/Time: Sep 24, 2022 01:55 PM Reporting Lab: [facility] [place] [address] Performing Lab: [facility] [place] [address] [place] [facility] PRE-ALBU MIN PREALBUMIN [MASS/VOLU ME] IN SERUM OR PLASMA 28.4 mg/dL 14.0 - 45.0 10/08 Specimen Type: SERUM No comment entered. Ordering Provider: ANKUSH BOWMAN Report Released Date/Time: Sep 24, 2022 01:55 PM Reporting Lab: [facility] [place] [address] Performing Lab: [facility] [place] [address] [place] [facility] CBC & DIFF LEUKOCYTES [#/VOLUME] IN BLOOD BY AUTOMATED COUNT 7.32 10*3/uL 4.0 - 11.0 10/08 Specimen Type: BLOOD Comment: Automated Differentia l Performed Ordering Provider: ANKUSH BOWMAN Report Released Date/Time: Sep 24, 2022 01:55 PM Reporting Lab: [facility] [place] [address] Performing Lab: [facility] [place] [address] [place] [facility] CBC & DIFF ERYTHROCYT ES [#/VOLUME] IN BLOOD BY AUTOMATED COUNT 4.80 10*6/uL 4.6 - 6.2 10/08 Specimen Type: BLOOD Comment: Automated Differentia l Performed Ordering Provider: ANKUSH BOWMAN Report Released Date/Time: Sep 24, 2022 01:55 PM Reporting Lab: [facility] [place] [address] Performing Lab: [facility] [place] [address] [place] [facility] CBC & DIFF HEMOGLOBIN [MASS/VOLU ME] IN BLOOD 14.7 g/dL 13.5 - 17.9 10/08 Specimen Type: BLOOD Comment: Automated Differentia l Performed Ordering Provider: ANKUSH BOWMAN Report Released Date/Time: Sep 24, 2022 01:55 PM Reporting Lab: [facility] [place] [address] Performing Lab: [facility] [place] [address] [place] [facility] CBC & DIFF HEMATOCRIT [VOLUME FRACTION] OF BLOOD BY AUTOMATED COUNT 44.2 41 - 54 10/08 Specimen Type: BLOOD Comment: Automated Differentia l Performed Ordering Provider: ANKUSH BOWMAN Report Released Date/Time: Sep 24, 2022 01:55 PM Reporting Lab: [facility] [place] [address] Performing Lab: [facility] [place] [address] [place] [facility] CBC & DIFF MCV [ENTITIC VOLUME] BY AUTOMATED COUNT 92.1 fL 80 - 100 10/08 Specimen Type: BLOOD Comment: Automated Differentia l Performed Ordering Provider: ANKUSH BOWMAN Report Released Date/Time: Sep 24, 2022 01:55 PM Reporting Lab: [facility] [place] [address] Performing Lab: [facility] [place] [address] [place] [facility] CBC & DIFF MCH [ENTITIC MASS] BY AUTOMATED COUNT 30.6 pg 27 - 33 10/08 Specimen Type: BLOOD Comment: Automated Differentia l Performed Ordering Provider: ANKUSH BOWMAN Report Released Date/Time: Sep 24, 2022 01:55 PM Reporting Lab: [facility] [place] [address] Performing Lab: [facility] [place] [address] [place] [facility] CBC & DIFF MCHC [MASS/VOLU ME] BY AUTOMATED COUNT 33.3 g/dL 32.0 - 37.5 10/08 Specimen Type: BLOOD Comment: Automated Differentia l Performed Ordering Provider: ANKUSH BOWMAN Report Released Date/Time: Sep 24, 2022 01:55 PM Reporting Lab: [facility] [place] [address] Performing Lab: [facility] [place] [address] [place] [facility] CBC & DIFF PLATELETS [#/VOLUME] IN BLOOD BY AUTOMATED COUNT 144 10*3/uL 150 - 400 10/08 L Specimen Type: BLOOD Comment: Automated Differentia l Performed Ordering Provider: ANKUSH BOWMAN Report Released Date/Time: Sep 24, 2022 01:55 PM Reporting Lab: [facility] [place] [address] Performing Lab: [facility] [place] [address] [place] [facility] CBC & DIFF PLATELET MEAN VOLUME [ENTITIC VOLUME] IN BLOOD BY AUTOMATED COUNT 10.8 fL 7.4 - 10.4 10/08 H Specimen Type: BLOOD Comment: Automated Differentia l Performed Ordering Provider: ANKUSH BOWMNA Report Released Date/Time: Sep 24, 2022 01:55 PM Reporting Lab: [facility] [place] [address] Performing Lab: [facility] [place] [address] [place] [facility] CBC & DIFF NEUTROPHIL S/100 LEUKOCYTES IN BLOOD BY MANUAL COUNT 55.5 10/08 Specimen Type: BLOOD Comment: Automated Differentia l Performed Ordering Provider: ANKUSH BOWMAN Report Released Date/Time: Sep 24, 2022 01:55 PM Reporting Lab: [facility] [place] [address] Performing Lab: [facility] [place] [address] [place] [facility] CBC & DIFF LYMPHOCYTE S/100 LEUKOCYTES IN BLOOD BY MANUAL COUNT 31.4 10/08 Specimen Type: BLOOD Comment: Automated Differentia l Performed Ordering Provider: ANKUSH BOWMAN Report Released Date/Time: Sep 24, 2022 01:55 PM Reporting Lab: [facility] [place] [address] Performing Lab: [facility] [place] [address] [place] [facility] CBC & DIFF MONOCYTES/ 100 LEUKOCYTES IN BLOOD BY AUTOMATED COUNT 10.2 10/08 Specimen Type: BLOOD Comment: Automated Differentia l Performed Ordering Provider: ANKUSH BOWMAN Report Released Date/Time: Sep 24, 2022 01:55 PM Reporting Lab: [facility] [place] [address] Performing Lab: [facility] [place] [address] [place] [facility] CBC & DIFF EOSINOPHIL S/100 LEUKOCYTES IN BLOOD BY AUTOMATED COUNT 2.2 10/08 Specimen Type: BLOOD Comment: Automated Differentia l Performed Ordering Provider: ANKUSH BOWMAN Report Released Date/Time: Sep 24, 2022 01:55 PM Reporting Lab: [facility] [place] [address] Performing Lab: [facility] [place] [address] [place] [facility] CBC & DIFF BASOPHILS/ 100 LEUKOCYTES IN BLOOD BY MANUAL COUNT 0.4 10/08 Specimen Type: BLOOD Comment: Automated Differentia l Performed Ordering Provider: ANKUSH BOWMAN Report Released Date/Time: Sep 24, 2022 01:55 PM Reporting Lab: [facility] [place] [address] Performing Lab: [facility] [place] [address] [place] [facility] CBC & DIFF ERYTHROCYT E DISTRIBUTI ON WIDTH [RATIO] BY AUTOMATED COUNT 15.9 11.5 - 14.5 10/08 H Specimen Type: BLOOD Comment: Automated Differentia l Performed Ordering Provider: ANKUSH BOWMAN Report Released Date/Time: Sep 24, 2022 01:55 PM Reporting Lab: [facility] [place] [address] Performing Lab: [facility] [place] [address] [place] [facility] CBC & DIFF LYMPHOCYTE S [#/VOLUME] IN BLOOD BY AUTOMATED COUNT 2.30 10*3/uL 1.0 - 4.0 10/08 Specimen Type: BLOOD Comment: Automated Differentia l Performed Ordering Provider: ANKUSH BOWMAN Report Released Date/Time: Sep 24, 2022 01:55 PM Reporting Lab: [facility] [place] [address] Performing Lab: [facility] [place] [address] [place] [facility] CBC & DIFF MONOCYTES [#/VOLUME] IN BLOOD BY AUTOMATED COUNT 0.75 10*3/uL 0.1 - 1.0 10/08 Specimen Type: BLOOD Comment: Automated Differentia l Performed Ordering Provider: ANKUSH BOWMAN Report Released Date/Time: Sep 24, 2022 01:55 PM Reporting Lab: [facility] [place] [address] Performing Lab: [facility] [place] [address] [place] [facility] CBC & DIFF NEUTROPHIL S [#/VOLUME] IN BLOOD BY AUTOMATED COUNT 4.06 10*3/uL 2.0 - 7.7 10/08 Specimen Type: BLOOD Comment: Automated Differentia l Performed Ordering Provider: ANKUSH BOWMAN Report Released Date/Time: Sep 24, 2022 01:55 PM Reporting Lab: [facility] [place] [address] Performing Lab: [facility] [place] [address] [place] [facility] CBC & DIFF EOSINOPHIL S [#/VOLUME] IN BLOOD BY AUTOMATED COUNT 0.16 10*3/uL 0 - 0.5 10/08 Specimen Type: BLOOD Comment: Automated Differentia l Performed Ordering Provider: ANKUSH BOWMAN Report Released Date/Time: Sep 24, 2022 01:55 PM Reporting Lab: [facility] [place] [address] Performing Lab: [facility] [place] [address] [place] [facility] CBC & DIFF BASOPHILS [#/VOLUME] IN BLOOD BY AUTOMATED COUNT 0.03 10*3/uL 0 - 0.2 10/08 Specimen Type: BLOOD Comment: Automated Differentia l Performed Ordering Provider: ANKUSH BOWMAN Report Released Date/Time: Sep 24, 2022 01:55 PM Reporting Lab: [facility] [place] [address] Performing Lab: [facility] [place] [address] [place] [facility] CBC & DIFF IG(META,MY MALACHI,PRO) 0.3 10/08 Specimen Type: BLOOD Comment: Automated Differentia l Performed Ordering Provider: ANKUSH BOWMAN Report Released Date/Time: Sep 24, 2022 01:55 PM Reporting Lab: [facility] [place] [address] Performing Lab: [facility] [place] [address] [place] [facility] CBC & DIFF IMMATURE GRANULOCYT ES [PRESENCE] IN BLOOD BY AUTOMATED COUNT 0.02 10*3/uL 0 - 0.1 10/08 Specimen Type: BLOOD Comment: Automated Differentia l Performed Ordering Provider: ANKUSH BOWMAN Report Released Date/Time: Sep 24, 2022 01:55 PM Reporting Lab: [facility] [place] [address] Performing Lab: [facility] [place] [address] [place] [facility] COMPREHE NSIVE METABOLI C PANEL+MG CREATININE [MASS/VOLU ME] IN SERUM OR PLASMA 0.7 mg/dL 0.7 - 1.2 10/08 Specimen Type: PLASMA No comment entered. Ordering Provider: ANKUSH BOWMAN Report Released Date/Time: Sep 24, 2022 01:55 PM Reporting Lab: [facility] [place] [address] Performing Lab: [facility] [place] [address] [place] [facility] COMPREHE NSIVE METABOLI C PANEL+MG UREA NITROGEN [MASS/VOLU ME] IN SERUM OR PLASMA 16 mg/dL 8 - 26 10/08 Specimen Type: PLASMA No comment entered. Ordering Provider: ANKUSH BOWMAN Report Released Date/Time: Sep 24, 2022 01:55 PM Reporting Lab: [facility] [place] [address] Performing Lab: [facility] [place] [address] [place] [facility] COMPREHE NSIVE METABOLI C PANEL+MG GLUCOSE [MASS/VOLU ME] IN SERUM OR PLASMA 94 mg/dL 70 - 100 10/08 Specimen Type: PLASMA No comment entered. Ordering Provider: ANKUSH BOWMAN Report Released Date/Time: Sep 24, 2022 01:55 PM Reporting Lab: [facility] [place] [address] Performing Lab: [facility] [place] [address] [place] [facility] COMPREHE NSIVE METABOLI C PANEL+MG SODIUM [MOLES/VOL UME] IN SERUM OR PLASMA 138 mmol/L 136 - 145 10/08 Specimen Type: PLASMA No comment entered. Ordering Provider: ANKUSH BOWMAN Report Released Date/Time: Sep 24, 2022 01:55 PM Reporting Lab: [facility] [place] [address] Performing Lab: [facility] [place] [address] [place] [facility] COMPREHE NSIVE METABOLI C PANEL+MG POTASSIUM [MOLES/VOL UME] IN SERUM OR PLASMA 3.9 mmol/L 3.5 - 5.1 10/08 Specimen Type: PLASMA No comment entered. Ordering Provider: ANKUSH BOWMAN Report Released Date/Time: Sep 24, 2022 01:55 PM Reporting Lab: [facility] [place] [address] Performing Lab: [facility] [place] [address] [place] [facility] COMPREHE NSIVE METABOLI C PANEL+MG CHLORIDE [MOLES/VOL UME] IN SERUM OR PLASMA 101 mmol/L 98 - 107 10/08 Specimen Type: PLASMA No comment entered. Ordering Provider: ANKUSH BOWMAN Report Released Date/Time: Sep 24, 2022 01:55 PM Reporting Lab: [facility] [place] [address] Performing Lab: [facility] [place] [address] [place] [facility] COMPREHE NSIVE METABOLI C PANEL+MG CARBON DIOXIDE, TOTAL [MOLES/VOL UME] IN SERUM OR PLASMA 28 mmol/L 22 - 29 10/08 Specimen Type: PLASMA No comment entered. Ordering Provider: ANKUSH BOWMAN Report Released Date/Time: Sep 24, 2022 01:55 PM Reporting Lab: [facility] [place] [address] Performing Lab: [facility] [place] [address] [place] [facility] COMPREHE NSIVE METABOLI C PANEL+MG CALCIUM [MASS/VOLU ME] IN SERUM OR PLASMA 9.7 mg/dL 8.4 - 10.2 10/08 Specimen Type: PLASMA No comment entered. Ordering Provider: ANKUSH BOWMAN Report Released Date/Time: Sep 24, 2022 01:55 PM Reporting Lab: [facility] [place] [address] Performing Lab: [facility] [place] [address] [place] [facility] COMPREHE NSIVE METABOLI C PANEL+MG PROTEIN [MASS/VOLU ME] IN SERUM OR PLASMA 7.6 g/dL 6.0 - 8.3 10/08 Specimen Type: PLASMA No comment entered. Ordering Provider: ANKUSH BOWMAN Report Released Date/Time: Sep 24, 2022 01:55 PM Reporting Lab: [facility] [place] [address] Performing Lab: [facility] [place] [address] [place] [facility] COMPREHE NSIVE METABOLI C PANEL+MG ALBUMIN [MASS/VOLU ME] IN SERUM OR PLASMA 4.2 g/dL 3.5 - 5.2 10/08 Specimen Type: PLASMA No comment entered. Ordering Provider: ANKUSH BOWMAN Report Released Date/Time: Sep 24, 2022 01:55 PM Reporting Lab: [facility] [place] [address] Performing Lab: [facility] [place] [address] [place] [facility] COMPREHE NSIVE METABOLI C PANEL+MG BILIRUBIN. TOTAL [MASS/VOLU ME] IN SERUM OR PLASMA 0.6 mg/dL 0.2 - 1.2 10/08 Specimen Type: PLASMA No comment entered. Ordering Provider: ANKUSH BOWMAN Report Released Date/Time: Sep 24, 2022 01:55 PM Reporting Lab: [facility] [place] [address] Performing Lab: [facility] [place] [address] [place] [facility] COMPREHE NSIVE METABOLI C PANEL+MG MAGNESIUM [MASS/VOLU ME] IN SERUM OR PLASMA 2.1 mg/dL 1.6 - 2.6 10/08 Specimen Type: PLASMA No comment entered. Ordering Provider: ANKUSH BOWMAN Report Released Date/Time: Sep 24, 2022 01:55 PM Reporting Lab: [facility] [place] [address] Performing Lab: [facility] [place] [address] [place] [facility] COMPREHE NSIVE METABOLI C PANEL+MG ANION GAP IN SERUM OR PLASMA 9 mmol/L 5 - 15 10/08 Specimen Type: PLASMA No comment entered. Ordering Provider: ANKUSH BOWMAN Report Released Date/Time: Sep 24, 2022 01:55 PM Reporting Lab: [facility] [place] [address] Performing Lab: [facility] [place] [address] [place] [facility] COMPREHE NSIVE METABOLI C PANEL+MG ALKALINE PHOSPHATAS E [ENZYMATIC ACTIVITY/V OLUME] IN SERUM OR PLASMA 96 U/L 40 - 150 10/08 Specimen Type: PLASMA No comment entered. Ordering Provider: ANKUSH BOWMAN Report Released Date/Time: Sep 24, 2022 01:55 PM Reporting Lab: [facility] [place] [address] Performing Lab: [facility] [place] [address] [place] [facility] COMPREHE NSIVE METABOLI C PANEL+MG ALANINE AMINOTRANS FERASE [ENZYMATIC ACTIVITY/V OLUME] IN SERUM OR PLASMA 29 U/L <55 - 55 10/08 Specimen Type: PLASMA No comment entered. Ordering Provider: ANKUSH BOWMAN Report Released Date/Time: Sep 24, 2022 01:55 PM Reporting Lab: [facility] [place] [address] Performing Lab: [facility] [place] [address] [place] [facility] COMPREHE NSIVE METABOLI C PANEL+MG ASPARTATE AMINOTRANS FERASE [ENZYMATIC ACTIVITY/V OLUME] IN SERUM OR PLASMA 22 U/L <34 - 34 10/08 Specimen Type: PLASMA No comment entered. Ordering Provider: ANKUSH BOWMAN Report Released Date/Time: Sep 24, 2022 01:55 PM Reporting Lab: [facility] [place] [address] Performing Lab: [facility] [place] [address] [place] [facility] COMPREHE NSIVE METABOLI C PANEL+MG GLOMERULAR FILTRATION RATE/1.73 SQ M.PREDICTE D [VOLUME RATE/AREA] IN SERUM, PLASMA OR BLOOD BY CREATININE -BASED FORMULA (CKD-EPI) >90 60 10/08 Specimen Type: PLASMA No comment entered. Ordering Provider: ANKUSH BOWMAN Report Released Date/Time: Sep 24, 2022 01:55 PM Reporting Lab: [facility] [place] [address] Performing Lab: [facility] [place] [address] [place] [facility] CYSTATIN C WITH EGFR CYSTATIN C [MASS/VOLU ME] IN SERUM OR PLASMA 1.38 mg/L 0.51 - 1.05 11/28 /2022 H Specimen Type: PLASMA No comment entered. Ordering Provider: ANKUSH BOWMAN Report Released Date/Time: Sep 24, 2022 01:55 PM Reporting Lab: [facility] [place] [address] Performing Lab: [facility] [place] [address] [place] [facility] CYSTATIN C WITH EGFR CYSTATIN C AND GLOMERULAR FILTRATION RATE BY CYSTATIN-B ASED FORMULA PANEL - SERUM OR PLASMA 48 60 10/08 L Specimen Type: PLASMA No comment entered. Ordering Provider: ANKUSH BOWMAN Report Released Date/Time: Sep 24, 2022 01:55 PM Reporting Lab: [facility] [place] [address] Performing Lab: [facility] [place] [address] [place] [facility] VIT D 25-OH,TO ZAMZAM 25-HYDROXY VITAMIN D3 [MASS/VOLU ME] IN SERUM OR PLASMA 54 ng/mL 12 - 50 10/08 H Specimen Type: SERUM No comment entered. Ordering Provider: ANKUSH BOWMAN Report Released Date/Time: Sep 24, 2022 01:55 PM Reporting Lab: [facility] [place] [id number] Performing Lab: [facility] [place] [address] [place] [facility] Encounters Combined list of: 1) Encounters from Department of Veterans Affairs facilities going back up to thelast 18 months. 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 Location Location Details Encounter Type Encounter Number Reason For Visit Attending Provider ADM Date DC Date Status Disposition Source [place] [facility] Outpatient Encounter [id number] [facility] HC PRO PHONE CALL 21-30 MIN [id number] Diagnos is: ICD-10- CM G82.20 Paraple mary kay, unspeci fied
Hever CASTRO 01/08 [facility] [place] [facility] Outpatient Encounter [id number] [facility] DIABETIC MANAGEMENT PROGRAM, [id number] Diagnos is: ICD-10- CM G82.20 Paraple mary kay, unspeci fied
TIGIST BASSETT 01/30 [facility] [facility] Out[facility] En[facility] [id number] 02/05 [facility] MTMS BY PHARM ADDL 15 MIN [id number] Diagnos is: ICD-10- CM G82.20 Paraple mary kay, unspeci fied
MANPREET BARRETTEY N 02/05 [facility] OT EVAL LOW COMPLEX 30 MIN [id number] Diagnos is: ICD-10- CM Z73.6 Limitat ion of activit ies due to disabil ity<br/ > Bryn PARDO 02/05 [facility] OFF/OP EST MAY X REQ PHY/QHP [phone] Diagnos is: ICD-10- CM G82.20 Paraple mary kay, unspeci fied
JOSUÉ ZAMORA J 02/05 [facility] PSYCH DIAGNOSTIC EVALUATION [phone] Diagnos is: ICD-10- CM F32.A Depress ion, unspeci fied
BINU GAMEZ 02/05 [facility] IS [facility] OFFICE O/P EST MOD 30-39 MIN [phone] Diagnos is: ICD-10- CM G82.20 Paraple mary kay, unspeci fied
ME LOGAN BOWMAN 02/05 [facility] IS [facility] PSYCH DIAGNOSTIC EVALUATION [phone] Diagnos is: ICD-10- CM G82.20 Paraple mary kay, unspeci fied
MAHI ABAD DESIRE J 02/05 [facility] MEDICAL NUTRITION INDIV IN [phone] Diagnos is: ICD-10- CM Z71.3 Dietary debt and budget counselor ing and surveil payal<b r/> Katia ARCHER 02/05 [facility] IS [facility] [place] [id number] Diagnos is: ICD-10- CM Z43.3 Encount er for attenti on to colosto my
VIOLA YOON 02/08 [facility] OFFICE O/P EST HI 40-54 MIN [phone] Diagnos is: ICD-10- CM G82.20 Paraple mary kay, unspeci fied
ME LOGNA BOWMAN 02/13 [facility] WHEELCHAIR MNGMENT TRAINING [phone] Diagnos is: ICD-10- CM Z73.6 Limitat ion of activit ies due to disabil ity<br/ > BOUSLOG,RY AN P 02/13 [facility] Outpatient Encounter [id number] 02/19 [facility] HC PRO PHONE CALL 11-20 MIN [id number] Diagnos is: ICD-10- CM Z73.6 Limitat ion of activit ies due to disabil ity<br/ > BOUSLOG,RY AN P 04/23 [facility] Outpatient Encounter [id number] 04/24 [facility] Outpatient Encounter [id number] 05/24 [facility] OFF/OP EST MAY X REQ PHY/QHP [id number] Diagnos is: ICD-10- CM G82.20 Paraple mary kay, unspeci fied
VIOLA YOON 05/28 [facility] WHEELCHAIR MNGMENT TRAINING [id number] Diagnos is: ICD-10- CM Z73.6 Limitat ion of activit ies due to disabil ity<br/ > BOUSLOG,RY AN P 06/10 [facility] Outpatient Encounter [id number] 10/28 [facility] Outpatient Encounter [id number] 11/20 [facility] [place] Outpatient Encounter [id number] 05/12 [facility] Social History Combined list of available smoking, tobacco, and other social history from 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 Social History Type Response Date Comment [facility] e Tobacco smoking status [facility] NEVER USED 05/28/20 22 SADAF TREVINO [facility] This section is an empty social history section. [facility] Plan of Care List of future care activities from Department 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 Additional future care activities may be listed in the Assessment and Plan section. Date/Time Care Activity Care Activity Detail Facili ty 07/30/2024 AMBULATORY - REHAB MEDICINE AMBULATORY - REHAB MEDICINE [facility] 05/12/2024 Consult Order SCI/D WHEELCHAIR SEATING/POSITIONING OUTPT Cons Rn Infusion's Choice [facility] Advance Directives List of completed, amended, or rescinded Advance Directives on record at Department of 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 An actual copy of the Directive is not included. Date Advance Directive Provider Source 02/05/2023 ADVANCE DIRECTIVE DISCUSSION GUSTAVO ABAD [facility]
--- OUTSIDE RECORDS SUMMARY | 2024-07-06 12:40 | XMS_ITS | Encounter Summary ---
Author Organization [facility] Address [address], [place] [address] Care Team Providers Care Mohs Surgeon Name Role Phone Franklin Squires MD Primary [...] on filedocumented in this encounter Care Teams Mohs Surgeon Relationship Specialty Start Date End Date Franklin Squires MD [address] [facility] [place] [address] PCP - General Family Practice 03/08/16 documented as of this encounter
--- OUTSIDE RECORDS SUMMARY | 2024-07-06 12:40 | XMS_ITS | Encounter Summary ---
Author Organization [facility] Address [address], [place] [address] Care Team Providers Care Automotive Service Technician Name Role Phone Franklin Squires MD Primary Care Provider [phone] Encounter Details Date Type Department Care Team (Latest Contact Info) Description 12/11/2017 Correspondence Physiatry/Physical Medicine at [facility] [address] [facility] [address] May Randle MD [address] [place] [address] [employer] Social History Tobacco Use [...] filedocumented in this encounter Care Teams Automotive Service Technician Relationship Specialty Start Date End Date Franklin Squires MD [address] [place] [address] [place] [address] PCP - General Family Practice 03/08/16 documented as of this encounter
--- OUTSIDE RECORDS SUMMARY | 2024-07-06 12:40 | XMS_ITS | Encounter Summary ---
Author Organization [facility] Address [address], [place] [address] Care Team Providers Care Passenger Barge Master Name Role Phone Franklin Squires MD Primary Care Provider [phone] Encounter Details Date Type Department Care Team (Late st Contact Info) Description 01/06/2016 Correspondence [facility] Radiology [address] [place] [address] Radiology, Provider MRI SAFETY SHEET AND COMPATIBILITY [...] on filedocumented in this encounter Care Teams Passenger Barge Master Relationship Specialty Start Date End Date Franklin Squires MD [address] [place], [place] [address] [address] PCP - General Family Practice 03/08/16 documented as of this encounter
--- OUTSIDE RECORDS SUMMARY | 2024-07-06 12:40 | XMS_ITS | Clinical Summary ---
Author Organization [employer] [facility] Address [place], [place] [address] Care Team Providers Care Manager Program Name Role Phone Zelalem Cohen MD Unavailable [phone] May Randle) Unavailable Franklin Squires MD Primary Care Provider Fred Craft Unavailable [phone] Diane Charles MD Unavailable [phone] Julia Ware RN Unavailable [phone] Allergies Active Allergy Reactions Criticality Noted Date [...] bedIndications:Non-heal ing surgical wound, subsequent encounter Drive [employer] 8 inch low loss mattress and 1/2 rails. Semi-electric bed. Length of need 6 weeks. Bed licensed funeral director and embalmer:no 1 unit 018 Active acetaminophen (TYLENOL EXTRA STRGTH) 500 mg tabletIndications:fever ,pain Take 1,000 mg by mouth three times daily. Max acetaminophen dose: 4000mg in 24 hrs. Active sodium chloride (AYR SALINE NASL) Inhale 2-3 Sprays in the nostril(s) once daily if needed. 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 [employer]ura [place] Click Ostomy Barrier with belt tabs 60mm, Cut-to-Fit 01/16 - 2 11/18. Item #[id number]. 1 Each 11 021 Active ascorbic acid, [...] A DAY 180 Tablet 1 024 Active Catheter (De La Cruz Catheter) 24 Fr miscIndications:Suprapu bic catheter (HC) As directed. 3 Each 3 024 Active L.acidoph/B.animalis/B. 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 90 Tablet 2 Active oxyCODONE 10 mg tabletIndications:Chron ic pain syndrome Take 1 Tablet (10 mg) by mouth every 6 hours. 120 Tablet Active LORazepam (ATIVAN) 0.5 mg tabIndications:Parapleg ia (HC) TAKE ONE TABLET BY MOUTH TWICE A DAY AND TAKE TWO TABLETS BY MOUTH AT BEDTIME 120 Tablet 2 Active LORazepam (ATIVAN) 0.5 mg tabIndications:Parapleg ia (HC) TAKE ONE TABLET BY MOUTH TWICE A DAY AND TAKE TWO TABLETS BY MOUTH AT BEDTIME 120 Tablet 2 024 2023 Discontinued(R eorder (E-cancel not sent)) furosemide (LASIX) 40 mg tabletIndications:Bilat eral lower extremity edema TAKE ONE TABLET BY MOUTH TWICE A DAY 180 Tablet 1 024 2023 Discontinued(* Medication adjustment) warfarin (COUMADIN) 7.5 mg tabletIndications:Iliof emoral thrombophlebitis [...] Encounters Date Type Department Care Team Description 07/02/2024 1:30 PM CDT Office Visit [address] [address] Franklin Squires MD Medication Management 07/02/2024 Travel 07/01/2024 Anticoagulation (warfarin) [address] [address] 1, [facility] Anticoagulation (Acelis) 06/17/2024 Anticoagulation (warfarin) [address] [address] 1, [facility] Anticoagulation (acelis) 06/11/[address] [address] Franklin Squires MD Refill Request (Warfarin) 06/03/2024 Anticoagulation (warfarin) [address] [address] 1, [facility] Anticoagulation (Acelis) 06/02/[address] [place] [address] Franklin Squires MD Refill Request (Oxycodone) 05/20/2024 Anticoagulation (warfarin) [address] [place] [address] 1, [facility] Anticoagulation (Acelis) 05/14/[address] [place] [address] Franklin Squires MD Refill Request (Baclofen) 05/14/[address] [place] [address] Franklin Squires MD Refill Request (Warfarin) 05/13/2024 Anticoagulation (warfarin) [address] [place] [address] 1, [facility] Anticoagulation (Acelis) 05/11/[address] [place] [address] Franklin Squires MD Form (Physician Orders and Home Health Certification and Plan of Care.) 05/06/2024 Anticoagulation (warfarin) [address] [place] [address] 1, [facility] Anticoagulation (Acelis) 05/05/[address] [address] Franklin Squires MD Form (60 Day Summary Report) 05/05/[address] [place] [address] Franklin Squires MD Refill Request (Warfarin) 05/04/[address] [place] [address] Franklin Squires MD Form 05/04/[address] [place] [address] Franklin Squires MD Refill Request (Oxycodone) 05/01/2024 Anticoagulation (warfarin) [address] [address] , [facility] Anticoagulation (Acelis) 04/29/2024 Refill [facility] [address] [place] [address] Franklin Squires MD Refill Request (Duloxetine, Donepezil) 04/24/2024 2:49 PM CDT - 04/24/2024 2:50 PM CDT Emergency [facility] [address] [place] [address] Discharge Disposition: Against Medical Advice or Discontinued Care 04/24/2024 Travel 04/24/2024 Anticoagulation (warfarin) [address] [address] 1, [facility] Anticoagulation (Acelis) 04/21/[address] [address] Franklin Squires MD Refill Request (Gabapentin) 04/20/[address] [address] Franklin Squires MD Form (Physician Orders. Urinary Catheter - Suprapubic. ) 04/20/[address] [address] Franklin Squires MD Refill Request (Gabapentin 400 mg) 04/13/[address] [address] Franklin Squires MD Form (Standard Written Order: Rehab Accessories. Cushion, Quadtro Select HI PRO 20x20 or 11x11 CELL) 04/07/2024 Anticoagulation (warfarin) [facility] [address] [facility] [place] [phone] 1, [facility] Anticoagulation (acelis) 04/07/2024 Telephone [facility] [address] [facility] [place] [phone] Franklin Squires MD Form (Physician Orders) from Last 3 Months Immunizations Name Administration [...] Reading Time Taken Comments Blood Pressure 112/64 07/02/2024 1:45 PM CDT Pulse 62 07/02/2024 1:45 PM CDT Temperature 37.1 ??C (98.7 ??F) [...] Care Team (Late st Contact Info) Description 07/08/2024 1:30 PM CDT Nurse/Clinic Staff Only [address] [address] Health Maintenance Due Date Last Done Comments Hepatitis C screening for ag e 18-79 1963 Zoster (shingles) series for age 50+ (2 of 3) 01/11/2016 11/16/2015, 03/23/2013 Medicare Wellness for age 65+ 02/07/2018 02/06/2017, 10/19/2015 COVID-19 vaccine series (2022- season) 2023 10/22/2022, 08/06/2021, 01/25/2021, Additional history exists Influenza for age 65+ 07/12/2024 10/22/2022 , 10/11/2022, 09/03/2021, Additional history exists Depression screening for age 12+ 12/19/2024 12/19/2023, 12/19/2023, 06/29/2022, Additional history exists Tetanus booster 05/28/2032 05/28/2022, 06/28/2011 Tdap Completed 06/28/2011 Pneumococcal series for age 65+ Completed 10/19/2015, 08/13/2011, 10/06/2009, Additional history exists Procedures Procedure Name Priority Date/Time Associated Diagnosis Comments CBC W PLT NO DIFF Routine 07/02/2024 2:1 4 PM CDT Skin ulcer, unspecified ulcer stage (HC) LIPID PANEL W REFLEX MEASURED LDL STAT 07/02/2024 2:14 PM CDT Pure hypercholesterolemia HEMOGLOBIN A1C Routine 07/02/2024 2:14 PM CDT 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) BASIC METABOLIC PANEL Routine 07/02/2024 2:14 PM CDT 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) HOME MONITOR AC Routine 07/01/2024 12:00 AM CDT HOME MONITOR AC Routine 06/17/2024 12:00 AM [...] CDT from Last 3 Months Results * LIPID PANEL W REFLEX MEASURED LDL (07/02/2024 2:14 PM CDT) [facility] CHOLESTEROL,TOTAL 122 100 - 199 mg/dL 07/02/2024 3:04 PM T [facility] Comment: Cholesterol, Total Reference Ranges Desirable <200 mg/dL Borderline 200-239 mg/dL High >=240 mg/dL TRIGLYCERIDES 58 <150 mg/dL 07/02/2024 3:04 PM T [facility] HDL CHOLESTEROL 56 >40 mg/dL 3:04 PM [facility] NON-HDL CHOLESTEROL 66 <145 mg/dl 07/02/2024 3:04 PM [facility] CHOL/HDL RATIO 2.18 <4.50 07/02/2024 3:04 PM [facility] LDL CHOLESTEROL 54 <=130 mg/dL 07/02/2024 3:04 PM [facility] VLDL CHOLESTEROL 12 <=30 mg/dL 07/02/2024 3:04 PM [facility] PROVIDER ORDERED STATUS RANDOM 07/02/2024 3:04 PM [facility] Blood BLOOD SPECIMEN / Unknown Venipuncture / Unknown 07/02/2024 2:14 PM CDT 07/02/2024 2:14 PM CDT Franklin Squires MD CHEMISTRY [facility] [address] [place] [address] * (ABNORMAL) CBC W PLT NO DIFF (07/02/2024 2:14 PM CDT) WHITE BLOOD COUNT 8.5 4.5 - 11.0 thou/cu mm 07/02/2024 2:58 PM CDT [facility] RED BLOOD COUNT 4.75 4.30 - 5.90 mil/cu mm 07/02/2024 2:58 PM CDT [facility] HEMOGLOBIN 14.1 13.5 - 17.5 g/dL 07/02/2024 2:58 PM CDT [facility] HEMATOCRIT 42.2 37.0 - 53.0 % 07/02/2024 2:58 PM CDT [facility] MCV 89 80 - 100 fL 07/02/2024 2:58 PM CDT [facility] MCH 29.7 26.0 - 34.0 pg 07/02/2024 2:58 PM CDT [facility] MCHC 33.4 32.0 - 36.0 g/dL 07/02/2024 2:58 PM CDT [facility] RDW 18.3(H) 11.5 - 15.5 % 07/02/2024 2:58 PM CDT [facility] PLATELET COUNT 159 140 - 440 thou/cu mm 07/02/2024 2:58 PM CDT [facility] MPV 10.7 6.5 - 11.0 fL 07/02/2024 2:58 PM CDT [facility] Blood BLOOD SPECIMEN / Unknown Venipuncture / Unknown 07/02/2024 2:14 PM CDT 07/02/2024 2:14 PM CDT Franklin Squires MD HEMATOLOGY [facility] [address] [place] [address] * HEMOGLOBIN A1C MONITORING (POCT) (07/02/2024 2:14 PM CDT) [facility] HEMOGLOBIN A1C MONITORING (POCT) 5.9 <=6.4 % 07/02/2024 2:49 PM CDT [facility] Blood BLOOD SPECIMEN / Unknown Venipuncture / Unknown 07/02/2024 2:14 PM CDT 07/02/2024 2:14 PM CDT Narrative [facility] - 07/02/2024 2:49 PM CDT ? (<=6.9%) ? Indicates good control ? (7.0% to 7.9%) ? Indicates fair control ? (>=8.0%) ? Indicates poor control ?? NOTE: ??These thresholds are guidelines and ?individual targets may vary. Falsely low levels may be seen with: Recent Transfusion, Recent Significant Blood Loss, Hemolytic Diseases, or Falsely elevated levels may be seen with: Untreated Anemias, Splenectomy ? Franklin Squires MD CHEMISTRY [facility] [address] [place] [address] * (ABNORMAL) BASIC METABOLIC PANEL (07/02/2024 2:14 PM CDT) [facility] SODIUM 138 136 - 145 mmol/L 07/02/2024 3:04 PM CDT [facility] POTASSIUM 4.1 3.5 - 5.1 mmol/L 07/02/2024 3:04 PM T [facility] CHLORIDE 99 98 - 107 mmol/L 07/02/2024 3:04 PM T [facility] CO2,TOTAL 29 22 - 29 mmol/L 07/02/2024 3:04 PM T [facility] ANION GAP 10 5 - 18 07/02/2024 3:04 PM T [facility] GLUCOSE 95 70 - 99 mg/dL 07/02/2024 3:04 PM [facility] CALCIUM 9.5 8.8 - 10.2 mg/dL 07/02/2024 3:04 PM [facility] BUN 18 8 - 23 mg/dL 07/02/2024 3:04 PM [facility] CREATININE 0.69(L) 0.70 - 1.20 mg/dL 07/02/2024 3:04 PM [facility] BUN/CREAT RATIO 26(H) 10 - 20 3:04 PM [facility] eGFR >90 >90 mL/min/1.7 3m2 07/02/2024 3:04 PM [facility] Comment:As of 2022, eG FR is calculated by the CKD-EPI creatinine equation without race adjustment. ??eGFR can be influenced by muscle mass, exercise, and diet. ??The reported eGFR is an estimation only and is only applicable if the renal function is stable. Blood BLOOD SPECIMEN / Unknown Venipuncture / Unknown 07/02/2024 2:14 PM CDT 07/02/2024 2:14 PM CDT Franklin Squires MD CHEMISTRY [facility] [address] [place] [address] * HOME MONITOR AC (07/01/2024 12:00 AM CDT) Only the most recent of9 resultswithin the time period is included. PATIENT REPORTED HOME INR 2.8 2.00 - 3.00 [facility] MONITORING 07/01/2024 Franklin Squires MD OTHER [facility] [address] [place] [address] from Last 3 Months Additional Health Concerns [...] Documents on File Type Date Recorded Patient Insurance Account Specialist Expl anation Healthcare Directive 05/09/2023 023 [...] Code Status Discussion: Reviewed Preferences Care Teams Manager Program Relationship Specialty Start Date End Date Franklin Squires MD [address] [place] [address] PCP - General Family Practice 10/18/15 Zelalem Cohen MD Physical Therapist 03/13/12 May Randle)MD Physical Medicine and Rehabilitation 03/13/12 Gaffney, FAUSTINO Krueger [address] [place] [address] Registered Nurse Supervisor 05/03/17 Diane Charles MD [address] [place] [address] Surgery - Urology 01/17/23 Julia Ware, RN [address] [place] [address] Registered Nurse 07/17/23
--- OUTSIDE RECORDS SUMMARY | 2024-07-06 12:41 | XMS_ITS | Encounter Summary ---
Author Organization [facility] Address [address], [place] [address] Care Team Providers Care Operational Review Sergeant Name Role Phone Franklin Squires MD Primary Care Provider [phone] Encounter Details Date Type Department Care Team [...] filedocumented in this encounter Care Teams Operational Review Sergeant Relationship Specialty Start Date End Date [facility] Squires MD [address] [facility] [place] [address] PCP - General Family Practice 03/08/16 documented as of this encounter
--- OUTSIDE RECORDS SUMMARY | 2024-07-06 12:41 | XMS_ITS | Encounter Summary ---
Author Organization [facility] Address [address], [place] [address] Care Team Providers Care Credit Card Associate Name Role Phone Franklin Squires MD Primary Care Provider Encounter Details Date Type Department Care Team (Late st Contact Info) Description 06/07/2015 Correspondence [facility] Radiology [address] [place] [address] Radiology, Provider MRI SAFETY SHEET AND COMPATIBILITY [...] filedocumented in this encounter Care Teams Credit Card Associate Relationship Specialty Start Date End Date Franklin Squires MD [address] [place], [place] [address] [address] PCP - General Family Practice 03/08/16 documented as of this encounter
--- OUTSIDE RECORDS SUMMARY | 2024-07-06 12:41 | XMS_ITS | Encounter Summary ---
Author Organization [facility] Address [address], [place] [address] Care Team Providers Care Business Analysis Specialist Name Role Phone Franklin Squires MD Primary Care Provider Encounter Details Date Type Department Care Team (Late st Contact Info) Description 06/11/2014 Correspondence [facility] 401 Physical Medicine [address] [facility] [place] [address] May Randle MD [address] [place] [address] [facility] Social History Tobacco Use Types Packs/Day [...] filedocumented in this encounter Care Teams Business Analysis Specialist Relationship Specialty Start Date End Date Franklin Squires MD [address] [facility] [place] [address] PCP - General Family Practice 03/08/16 documented as of this encounter
--- OUTSIDE RECORDS SUMMARY | 2024-07-06 12:41 | XMS_ITS | Encounter Summary ---
Author Organization [facility] Address [address], [place] [address] Care Team Providers Care Children'S Lunchroom Supervisor Name Role Phone Franklin Squires MD Primary Care Provider [phone] Encounter Details Date Type Department Care Team (Late st Contact Info) Description 05/04/2014 Correspondence [facility] 401 Physical Medicine [address] [facility] [place] [address] May Randle MD [address] [place] [address] LETTER OF MEDICAL NECESSITY FOR A WHEELCHAIR [...] on filedocumented in this encounter Care Teams Children'S Lunchroom Supervisor Relationship Specialty Start Date End Date Franklin Squires MD [address] [facility] [place] [address] PCP - General Family Practice 03/08/16 documented as of this encounter
--- OUTSIDE RECORDS SUMMARY | 2024-07-06 12:41 | XMS_ITS | Encounter Summary ---
Author Organization [facility] Address [address], [place] [address] Care Team Providers Care Account Management Assistant Name Role Phone Franklin Squires MD Primary Care Provider [phone] Encounter Details Date Type Department Care Team (Late st Contact Info) Description 12/16/2014 Correspondence External to External, [place] [address] MEDICARE PLAN OF CARE RECERT Social History [...] filedocumented in this encounter Care Teams Account Management Assistant Relationship Specialty Start Date End Date Franklin Squires MD [address] [place] [address] [facility] [place] [address] PCP - General Family Practice 03/08/16 documented as of this encounter
--- OUTSIDE RECORDS SUMMARY | 2024-07-06 12:41 | XMS_ITS | Encounter Summary ---
Author Organization [facility] Address [address] [address] Care Team Providers Care Line Mover Name Role Phone Franklin Squires MD Primary Care Provider Encounter Details Date Type Department Care Team (Latest Contact Info) Description 06/04/2014 [facility] 401 Interventional Pain Management 401 [facility] [place] [address] Zelalem Cohen, DO [address] [place] [address] MEDICAID PT INFORMATION EMPI RECOVERY Social History [...] on filedocumented in this encounter Care Teams Line Mover Relationship Specialty Start Date End Date Franklin Squires MD 100 [facility] [place] [address] PCP - General Family Practice 03/08/16 documented as of this encounter
--- OUTSIDE RECORDS SUMMARY | 2024-07-06 12:41 | XMS_ITS | Encounter Summary ---
Author Organization [facility] Address [address] [address] Care Team Providers Care Soyfreeze Operator Name Role Phone Franklin Squires MD Primary Care Provider [phone] Encounter Details Date Type Department Care Team (Late st Contact Info) Description 09/17/2013 Correspondence External to External, [place] [address] EMPOWERMENT RULES Social History Tobacco Use Types [...] External, Provider - 09/17/2013 12:00 AM CST RIST DYER documented in this encounter Plan of Treatment Not on file documented as of this encounter Visit Diagnoses Not on filedocumented in this encounter Care Teams Soyfreeze Operator Relationship Specialty Start Date End Date Franklin Squires MD [address] [place] [address] [place] [address] PCP - General Family Practice 03/08/16 documented as of this encounter
--- OUTSIDE RECORDS SUMMARY | 2024-07-06 12:41 | XMS_ITS | Encounter Summary ---
Author Organization [facility] Address [address] [address] Care Team Providers Care Coal Cager Name Role Phone Franklin Squires MD Primary Care Provider Encounter Details Date Type Department Care Team (Late st Contact Info) Description 12/16/2013 Correspondence [facility] Radiology [address] [place] [address] Radiology, Provider MRI SAFETY SHEET AND COMPATIBILITY [...] Radiology, Provider - 12/16/2013 12:00 AM CST FIC SUPERINTENDENT documented in this encounter Plan of Treatment Not on file documented as of this encounter Visit Diagnoses Not on filedocumented in this encounter Care Teams Coal Cager Relationship Specialty Start Date End Date Franklin Squires MD 100 [facility] [place] [address] PCP - General Family Practice 03/08/16 documented as of this encounter
--- OUTSIDE RECORDS SUMMARY | 2024-07-06 12:41 | XMS_ITS | Encounter Summary ---
Author Organization [facility] Address [address] [address] Care Team Providers Care Awning Finisher Name Role Phone Franklin Squires MD Primary Care Provider Encounter Details Date Type Department Care Team (Late st Contact Info) Description 07/28/2014 Outside Hospital External to External, Provider No address [address] ER VISIT/TRANSFER Social History Tobacco Use [...] on filedocumented in this encounter Care Teams Awning Finisher Relationship Specialty Start Date End Date Franklin Squires MD 100 [facility] [place] [address] PCP - General Family Practice 03/08/16 documented as of this encounter
--- OUTSIDE RECORDS SUMMARY | 2024-07-06 12:41 | XMS_ITS | Encounter Summary ---
Author Organization [facility] Address [address], [place] [address] Care Team Providers Care Site Monitor Name Role Phone Franklin Squires MD Primary Care Provider [phone] Encounter Details Date Type Department Care Team [...] on filedocumented in this encounter Care Teams Site Monitor Relationship Specialty Start Date End Date Franklin Squires MD 100 [facility] [place] [address] PCP - General Family Practice 03/08/16 documented as of this encounter
--- OUTSIDE RECORDS SUMMARY | 2024-07-06 12:41 | XMS_ITS | Encounter Summary ---
Author Organization [facility] Address [address] [address] Care Team Providers Care Community Service Officer Name Role Phone Franklin Squires MD Primary Care Provider [phone] Encounter Details Date Type Department Care Team (Late st Contact Info) Description 07/23/2013 [facility]ence [facility] 401 Interventional Pain Management 401 [facility] [place] [address] Zelalem Cohen DO [address] [place] [address] EXPRESS SCRIPT Social History Tobacco Use Types [...] Cohen MD - 07/23/2013 12:00 AM CDT STICIAN documented in this encounter Plan of Treatment Not on file documented as of this encounter Visit Diagnoses Not on filedocumented in this encounter Care Teams Community Service Officer Relationship Specialty Start Date End Date Franklin Squires MD 100 [facility] [place] [address] PCP - General Family Practice 03/08/16 documented as of this encounter
--- OUTSIDE RECORDS SUMMARY | 2024-07-06 12:41 | XMS_ITS | Encounter Summary ---
Author Organization [facility] Address [address], [place] [address] Care Team Providers Care Online Journalist Name Role Phone Franklin Squires MD Primary Care Provider [phone] Encounter Details Date Type Department Care Team (Late st Contact Info) Description 08/20/2014 Outside Hospital External to [facility] Social History Tobacco Use Types [...] filedocumented in this encounter Care Teams Online Journalist Relationship Specialty Start Date End Date Franklin Squires MD 100 [facility] [place] [address] PCP - General Family Practice 03/08/16 documented as of this encounter
--- OUTSIDE RECORDS SUMMARY | 2024-07-06 12:41 | XMS_ITS | Encounter Summary ---
Author Organization [facility] Address [address] [address] Care Team Providers Care Wheel Press Operator Name Role Phone Franklin Squires MD Primary Care Provider Encounter Details Date Type Department Care Team (Late st Contact Info) Description 11/23/2015 Correspondence External to External, [place] [address] LETTER [facility] Social History Tobacco Use Types [...] filedocumented in this encounter Care Teams Wheel Press Operator Relationship Specialty Start Date End Date Franklin Squires MD [address] [place] [address] [place] [address] PCP - General Family Practice 03/08/16 documented as of this encounter
--- OUTSIDE RECORDS SUMMARY | 2024-07-06 12:41 | XMS_ITS | Encounter Summary ---
Author Organization [facility] Address [address] [address] Care Team Providers Care Sole Assessor Name Role Phone Franklin Squires MD Primary Care Provider Encounter Details Date Type Department Care Team (Late st Contact Info) Description 09/07/2014 Correspondence [facility] Radiology [address] [place] [address] Radiology, Provider MRI SAFETY SHEET AND COMPATIBILITY [...] on filedocumented in this encounter Care Teams Sole Assessor Relationship Specialty Start Date End Date Franklin Squires MD [address] [place], [place] [address] [address] PCP - General Family Practice 03/08/16 documented as of this encounter
--- OUTSIDE RECORDS SUMMARY | 2024-07-06 12:41 | XMS_ITS | Encounter Summary ---
Author Organization [facility] [address] [address] Care Team Providers Care Satellite Technician Name Role Phone Franklin Squires MD Primary Care Provider Encounter Details Date Type Department Care Team (Late st Contact Info) Description 11/10/2014 Correspondence [facility] Physical Therapy [address] [place] [address] Trudi Raymundo, PT [address] [place] [address] LETTER OF MEDICAL NECESSITY Social History Tobacco [...] filedocumented in this encounter Care Teams Satellite Technician Relationship Specialty Start Date End Date Franklin Squires MD 100 [facility] [place] [address] PCP - General Family Practice 03/08/16 documented as of this encounter
--- OUTSIDE RECORDS SUMMARY | 2024-07-06 12:41 | XMS_ITS | Encounter Summary ---
Author Organization [facility] Address [address], [place] [address] Care Team Providers Care Power Brake Rebuilder Name Role Phone Franklin Squires MD Primary Care Provider Encounter Details Date Type Department Care Team (Late st Contact Info) Description 04/20/[address] [address] Radiology, Provider MRI SAFETY SHEET AND COMPATIBILITY [...] filedocumented in this encounter Care Teams Power Brake Rebuilder Relationship Specialty Start Date End Date Franklin Squires MD 100 [facility] [place] [address] PCP - General Family Practice 03/08/16 documented as of this encounter
--- OUTSIDE RECORDS SUMMARY | 2024-07-06 12:41 | XMS_ITS | Encounter Summary ---
Author Organization [facility] Address [address] [address] Care Team Providers Care Rn Resource Nurse Name Role Phone Franklin Squires MD Primary Care Provider Encounter Details Date Type Department Care Team (Late st Contact Info) Description 12/14/2014 Correspondence [facility] 401 Physical Medicine 401 [place] [address] May Randle MD [address] [place] [address] DETAILED PRODUCT DESCRIPTION Social History Tobacco Use [...] filedocumented in this encounter Care Teams Rn Resource Nurse Relationship Specialty Start Date End Date Franklin Squires MD 100 [facility] [place] [address] PCP - General Family Practice 03/08/16 documented as of this encounter
--- OUTSIDE RECORDS SUMMARY | 2024-07-06 12:41 | XMS_ITS | Encounter Summary ---
Author Organization [facility] Address [address] [address] Care Team Providers Care Rehabilitation Services Manager Name Role Phone Franklin Squires MD Primary Care Provider Encounter Details Date Type Department Care Team (Late st Contact Info) Description 08/22/2014 Outside Hospital External to [facility] [...] filedocumented in this encounter Care Teams Rehabilitation Services Manager Relationship Specialty Start Date End Date Franklin Squires MD 100 [facility] [place] [address] PCP - General Family Practice 03/08/16 documented as of this encounter
--- OUTSIDE RECORDS SUMMARY | 2024-07-06 12:41 | XMS_ITS | Encounter Summary ---
Author Organization [facility] [address] [address] Care Team Providers Care Cooker Helper Name Role Phone Franklin Squires MD Primary Care Provider [phone] Encounter Details Date Type Department Care Team (Late st Contact Info) Description 10/26/2013 Correspondence [facility] Physical Therapy [address] [place] [address] Trudi Raymundo, PT [address] [place] [address] LETTER OF MEDICAL NECESSITY Social History Tobacco [...] Raymundo, PT - 10/26/2013 12:00 AM CST LE ERP DEVELOPER documented in this encounter Plan of Treatment Not on file documented as of this encounter Visit Diagnoses Not on filedocumented in this encounter Care Teams Cooker Helper Relationship Specialty Start Date End Date Franklin Squires MD 100 [facility] [place] [address] PCP - General Family Practice 03/08/16 documented as of this encounter
--- OUTSIDE RECORDS SUMMARY | 2024-07-06 12:41 | XMS_ITS | Encounter Summary ---
Author Organization [facility] Address [address] [address] Care Team Providers Care Choker Setter Name Role Phone Franklin Squires MD Primary Care Provider Encounter Details Date Type Department Care Team (Late st Contact Info) Description 03/11/2014 Correspondence [facility] 401 Interventional Pain Management 401 [facility] [address] Zelalem Cohen, DO [address] [place] [address] EMPI Social History Tobacco Use Types Packs/Day [...] on filedocumented in this encounter Care Teams Choker Setter Relationship Specialty Start Date End Date Franklin Squires MD 100 [facility] [place] [address] PCP - General Family Practice 03/08/16 documented as of this encounter
--- OUTSIDE RECORDS SUMMARY | 2024-07-06 12:41 | XMS_ITS | Encounter Summary ---
Author Organization [facility] Address [address] [address] Care Team Providers Care Food Specialist Name Role Phone Franklin Squires MD Primary Care Provider [phone] Encounter Details Date Type Department Care Team [...] filedocumented in this encounter Care Teams Food Specialist Relationship Specialty Start Date End Date Franklin Squires MD [address] [place], [place] [address] [address] PCP - General Family Practice 03/08/16 documented as of this encounter
--- OUTSIDE RECORDS SUMMARY | 2024-07-06 12:41 | XMS_ITS | Encounter Summary ---
Author Organization [facility] [address] [address] Care Team Providers Care Electrical Service Technician Name Role Phone Franklin Squires MD Primary Care Provider Encounter Details Date Type Department Care Team (Late st Contact Info) Description 07/08/2015 Correspondence [facility] Physical Therapy [address] [place] [address] Trudi Raymundo, PT [address] [place] [address] ADDENDUM FOR LETTER OF MEDICAL NECESSITY Social [...] filedocumented in this encounter Care Teams Electrical Service Technician Relationship Specialty Start Date End Date Franklin Squires MD [address] [facility] [place] [address] PCP - General Family Practice 03/08/16 documented as of this encounter
--- OUTSIDE RECORDS SUMMARY | 2024-07-06 12:41 | XMS_ITS | Encounter Summary ---
Author Organization [facility] Address [address] [address] Care Team Providers Care Oxygen Plant Operator Name Role Phone Franklin Squires MD Primary Care Provider [phone] Encounter Details Date Type Department Care Team (Late st Contact Info) Description 11/13/2012 Correspondence [facility] Radiology [address] [place] [address] Radiology, Provider MRI SAFETY SHEET AND COMPATIBILITY [...] RADIOLOGY, PROVIDER - 11/13/2012 12:00 AM CST OR PYTHON DEVELOPER documented in this encounter Plan of Treatment Not on file documented as of this encounter Visit Diagnoses Not on filedocumented in this encounter Care Teams Oxygen Plant Operator Relationship Specialty Start Date End Date Franklin Squires MD 100 [facility] [place] [address] PCP - General Family Practice 03/08/16 documented as of this encounter
--- OUTSIDE RECORDS SUMMARY | 2024-07-06 12:41 | XMS_ITS | Encounter Summary ---
Author Organization [facility] Address [address] [address] Care Team Providers Care Real Estate Broker Associate Name Role Phone Franklin Squires MD Primary Care Provider [phone] Encounter Details Date Type Department Care Team (Late st Contact Info) Description 01/08/2013 Scanned History External to Transferred Record, Provider [facility] Social History Tobacco Use Types Packs/Day [...] in this encounter Care Teams Real Estate Broker Associate Relationship Specialty Start Date End Date Franklin Squires MD 100 [facility] [place] [address] PCP - General Family Practice 03/08/16 documented as of this encounter
--- OUTSIDE RECORDS SUMMARY | 2024-07-06 12:41 | XMS_ITS | Encounter Summary ---
Author Organization [facility] Address [address], [place] [address] Care Team Providers Care Medical Oncologist Name Role Phone Franklin Squires MD Primary Care Provider Encounter Details Date Type Department Care Team (Late st Contact Info) Description 04/24/[address] [facility] Radiology [address] [place] [address] Radiology, Provider MRI SAFETY SHEET AND COMPATIBILITY [...] filedocumented in this encounter Care Teams Medical Oncologist Relationship Specialty Start Date End Date Franklin Squires MD 100 [facility] [place] [address] PCP - General Family Practice 03/08/16 documented as of this encounter
--- OUTSIDE RECORDS SUMMARY | 2024-07-06 12:41 | XMS_ITS | Encounter Summary ---
Author Organization [facility] [address], [place] [address] Care Team Providers Care Graphic Artist Name Role Phone Franklin Squires MD Primary Care Provider Encounter Details Date Type Department Care Team (Late st Contact Info) Description 02/05/2014 Correspondence [facility] Physical Therapy [address] [place] [address] Trudi Raymundo, PT [address] [place] [address] LETTER OF MEDICAL NECESSITY FOR A WHEELCHAIR [...] on filedocumented in this encounter Care Teams Graphic Artist Relationship Specialty Start Date End Date Franklin Squires MD 100 [facility] [place] [address] PCP - General Family Practice 03/08/16 documented as of this encounter
== END 2024-07-06 12:38 | disposition home or self-care (01) ==
LOC: WOUND 12:38
PROVIDERS: PCP Family Medicine; Visit Provider Physician Assistant Surgical
DX: L89.324 Pressure ulcer of left buttock, stage 4 (principal); E11.622 Type 2 diabetes mellitus with other skin ulcer; G82.50 Quadriplegia, unspecified
CPT/HCPCS: 11043

== ENCOUNTER 2024-07-09 13:33 | Outpatient (CLI) | payer MEDICARE, OTHER, SELFPAY ==
--- OUTSIDE RECORDS SUMMARY | 2024-07-09 13:36 | XMS_ITS | Clinical Summary ---
Author Organization [facility] Address [address] [place] [address] Care Team Providers Care Banquet Captain Name Role Phone Franklin Squires MD Primary Care Provider [phone] Source Comments You are receiving this document [...] for each transition of care or referral. [employer] Allergies Active Allergy Reactions Criticality Noted [...] Comments Blood Pressure 120/63 01/18/2022 12:59 PM RELIGION TEACHER Pulse 87 01/18/2022 12:59 PM RELIGION TEACHER Temperature 36.3 ??C (97.4 ??F) 01/18/2022 12:59 [...] this topic Medical Devices Implanted Type Area Consumer Services Consultant Device Identifier Shelf Expiration Date Model / Serial / Lot [id number] 4ml Tisseel Explanted:([place] ntity not on file) BIOLOGIC N/A: NECK Lynne Fenwall 09/10/2011 [id number] / [id number] / [id number] Description:posterior Cath Intrathecal Indura - [id number] Implanted:Qty: 1 on 05/09/2010 at [facility] DEVICE Right: LUMBAR SPINE [employer] 01/18/2012 8709 / N/A / [id number] 5 Cath Intrathecal Indura - [id number] Implanted:Qty: 1 on 05/29/2010 at [facility] DEVICE [employer] 8709 / / Scr Indira Conic 7.3x80 - [id number] Implanted:Qty: 1 on 03/13/2011 at [facility] DEVICE Right: FEMUR DISTAL [employer] 02.207.28 0 / NONE / NONE Plt Lcp Cndl Rt 4.5x170 6h - [id number] Implanted:Qty: 1 on 03/13/2011 at [facility] DEVICE Right: FEMUR DISTAL [employer] 222.656 / NONE / NONE Description:6 hole 170mm rig ht 4.5mm lcp condylar plate Scr Didier Ss Sftp 4.5x40 - [id number] Implanted:Qty: 1 on 03/13/2011 at [facility] DEVICE Left: FEMUR DISTAL [employer] 214.840 / NONE / NONE Scr Didier Ss Sftp 4.5x50 - [id number] Implanted:Qty: 1 on 03/13/2011 at [facility] DEVICE Left: FEMUR DISTAL [employer] 214.850 / NONE / NONE Scr Indira Lk 5.0x80 - [id number] Implanted:Qty: 2 on 03/13/2011 at [facility] DEVICE Left: FEMUR DISTAL [employer] 02.205.08 0 / NONE / NONE Scr Indira Lk 5.0x85 - [id number] Implanted:Qty: 2 on 03/13/2011 at [facility] DEVICE Left: FEMUR DISTAL [employer] 02.205.08 5 / NONE / NONE Scr Lk Sftp T25 5.0x50 - [id number] Implanted:Qty: 1 on 03/13/2011 at [facility] DEVICE Left: FEMUR DISTAL [employer] 212.219 / NONE / NONE Scr Lk Sftp T25 5.0x60 - [id number] Implanted:Qty: 1 on 03/13/2011 at [facility] DEVICE Left: FEMUR DISTAL [employer] 212.221 / NONE / NONE Scr Indira Conic 7.3x85 - [id number] Implanted:Qty: 1 on 03/13/2011 at [facility] DEVICE Left: FEMUR DISTAL [employer] 02.207.28 5 / NONE / NONE Plt Lcp Cndl Lt 4.5x170 6h - [id number] Implanted:Qty: 1 on 03/13/2011 at [facility] DEVICE Left: FEMUR DISTAL [employer] 222.657 / NONE / NONE Description:6 hole 170mmleng th left 4.5mm lcp condylar plate. Scr Didier Sftp 3.5x60 F-Thrd - [id number] Implanted:Qty: 1 on 03/13/2011 at [facility] DEVICE Left: TIBIA PROXIMAL [employer] 204.860 / NONE / NONE Scr Star Lk Sftp 3.5x32 - [id number] Implanted:Qty: 1 on 03/13/2011 at [facility] DEVICE Left: TIBIA PROXIMAL [employer] 212.112 / NONE / NONE Scr Star Lk Sftp 3.5x55 - [id number] Implanted:Qty: 2 on 03/13/2011 at [facility] DEVICE Left: TIBIA PROXIMAL [employer] 212.123 / NONE / NONE Scr Star Lk Sftp 3.5x60 - [id number] Implanted:Qty: 2 on 03/13/2011 at [facility] DEVICE Left: TIBIA PROXIMAL [employer] 212.124 / NONE / NONE Plt Lcp M/Prox Lt 3.5x94 4h - [id number] Implanted:Qty: 1 on 03/13/2011 at [facility] DEVICE Left: TIBIA PROXIMAL [employer] 239.955 / NONE / NONE Scr Didier Ss Sftp 4.5x36 - [id number] Implanted:Qty: 1 on 03/13/2011 at [facility] DEVICE Right: FEMUR DISTAL [employer] 214.836 / NONE / NONE Scr Didier Ss Sftp 4.5x44 - [id number] Implanted:Qty: 1 on 03/13/2011 at [facility] DEVICE Right: FEMUR DISTAL [employer] 214.844 / NONE / NONE Scr Indira Lk 5.0x75 - [id number] Implanted:Qty: 1 on 03/13/2011 at [facility] DEVICE Right: FEMUR DISTAL [employer] 02.205.07 5 / NONE / NONE Scr Indira Lk 5.0x85 - [id number] Implanted:Qty: 2 on 03/13/2011 at [facility] DEVICE Right: FEMUR DISTAL [employer] 02.205.08 5 / NONE / NONE Scr Lk Sftp T25 5.0x44 - [id number] Implanted:Qty: 1 on 03/13/2011 at [facility] DEVICE Right: FEMUR DISTAL [employer] 212.216 / NONE / NONE Scr Lk Sftp T25 5.0x65 - [id number] Implanted:Qty: 1 on 03/13/2011 at [facility] DEVICE Right: FEMUR DISTAL [employer] 212.222 / NONE / NONE Plt Lp T Ti Str 4h - [id number] Implanted:Qty: 3 on 07/28/2014 by Cooper Shelley MD at [facility] DEVICE Right: SKULL [employer] 421.504 / / Scr Matrix Sfdr 4mm - [id number] Implanted:Qty: 6 on 07/28/2014 by Cooper Shelley MD at [facility] DEVICE Right: SKULL [employer] [place] 04.503.10 4.01 / / Lead Linear 3-4 8 Contact 50cm - [id number] Implanted:Qty: 1 on 03/08/2016 by Zelalem Cohen DO at [facility] DEVICE N/A: OTHER-SEE DESCRIPTION [employer] [facility] 09/10/2017 [id number] 2500 / / [id number] Description:LUMBAR Lead Linear 3-4 8 Contact 50cm - [id number] Implanted:Qty: 1 on 03/08/2016 by Zelalem Cohen DO at [facility] DEVICE N/A: OTHER-SEE DESCRIPTION [employer] [facility] 09/10/2017 [id number] 2500 / / [id number] Description:LUMBAR Lead Linear 3-4 8 Contact 50cm - [id number] Implanted:Qty: 1 on 03/08/2016 by Zelalem Cohen DO at [facility] DEVICE N/A: OTHER-SEE DESCRIPTION [employer] [facility] 09/10/2017 [id number] 2500 / / [id number] Description:LUMBAR Lead Linear 3-4 8 Contact 50cm - [id number] Implanted:Qty: 1 on 03/08/2016 by Zelalem Cohen DO at [facility] DEVICE N/A: OTHER-SEE DESCRIPTION [facility] 09/10/2017 [id number] 2500 / / [id number] Description:LUMBAR Lead Linear 3-4 8 Contact 50cm - [id number] Implanted:Qty: 1 on 05/24/2016 by Zelalem Cohen DO at [facility] DEVICE N/A: SPINE LUMBAR POSTERIOR [employer] [facility] 01/31/2018 [id number] 2500 / [id number] / Lead Linear 3-4 8 Contact 50cm - [id number] Implanted:Qty: 1 on 05/24/2016 by Zelalem Cohen DO at [facility] DEVICE N/A: SPINE LUMBAR POSTERIOR [employer] 04/26/2018 [id number] 2500 / [id number] / Lead Linear 3-4 8 Contact 50cm - [id number] Implanted:Qty: 1 on 05/24/2016 by Zelalem Cohen DO at [facility] DEVICE N/A: SPINE LUMBAR POSTERIOR [facility] 04/26/2018 [id number] 2500 / [id number] / Lead Linear 3-4 8 Contact 50cm - [id number] Implanted:Qty: 1 on 05/24/2016 by Zelalem Cohen DO at [facility] DEVICE N/A: SPINE LUMBAR POSTERIOR [facility] 04/26/2018 [id number] 2500 / [id number] / Generator Pulse Spectra - [id number] Implanted:Qty: 1 on 05/24/2016 by Zelalem Cohen DO at [facility] DEVICE N/A: SPINE LUMBAR POSTERIOR [facility] 05/08/2018 [id number] 20 / [id number] / [id number] Franklin Clik - [id number] Implanted:Qty: 1 on 05/24/2016 by Zelalem Cohen DO at [facility] DEVICE N/A: SPINE LUMBAR POSTERIOR [facility] 05/02/2018 [id number] 60 / / [id number] Franklin Clik - [id number] Implanted:Qty: 1 on 05/24/2016 by Zelalem Cohen DO at [facility] DEVICE N/A: SPINE LUMBAR POSTERIOR [facility] 02/28/2018 [id number] 60 / / [id number] Procedures Procedure Name Priority Date/Time Associated Diagnosis Comments CREATININE/GFR, WB POC Routine 01/06/2016 12:04 PM RELIGION TEACHER Back pain, 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 HGB A1C Routine 07/29/2014 3:19 AM CDT from Last 3 Months or Most Recently Relevant to Health Maintenance Results * CREATININE/GFR, WB POC (01/06/2016 12:04 PM RELIGION TEACHER) [facility] Creat Whole Blood 0.9 0.66 - 1.25 mg/dl [facility] GFR, Estimated >60 >60 ml/min/1.7 3m2 [facility] GFR, Est., If Black >60 >60 ml/min/1.7 3m2 [facility] 01/06/2016 12:0 4 PM RELIGION TEACHER 01/06/2016 12:21 PM RELIGION TEACHER Trae Blair MD LAB_1 [facility] [phone] * (ABNORMAL) HGB A1C (07/29/2014 3:19 AM CDT) [facility] Hgb A1c 6.4(H) 4.3 - 6.1 % [facility] Comment: The usual A1C goal for people with diabetes, age 18-75, is <8.0%. Physicians may recommend a higher or lower goal for specific individuals. 07/29/2014 3:19 AM CDT 07/29/2014 3:22 AM CDT Narrative [facility] - 07/29/2014 12:53 PM CDT Performed at [facility], [address] [place] [address] ??[id number] [place] Wei PA-C LAB_[address] [address] from Last 3 Months or Most Recently [...] 5:44 PM 07/28/2014 6:50 PM Care Teams Banquet Captain Relationship Specialty Start Date End Date Franklin Squires MD [address] [facility] [place] [address] PCP - General Family Practice 03/08/16
--- OUTSIDE RECORDS SUMMARY | 2024-07-09 13:36 | XMS_ITS | Encounter Summary ---
Author Organization [facility] [address], [place] [address] Care Team Providers Care Architecture Department Chair Name Role Phone Franklin Squires MD Primary Care Provider Encounter Details Date Type Department Care Team (Late st Contact Info) Description 07/08/2015 Correspondence [facility] Physical Therapy [address] [place] [address] Trudi Raymundo, PT [address] [place] [address] ADDENDUM FOR LETTER OF MEDICAL NECESSITY Social [...] on filedocumented in this encounter Care Teams Architecture Department Chair Relationship Specialty Start Date End Date Franklin Squires MD [address] [facility] [address] PCP - General Family Practice 03/08/16 documented as of this encounter
--- OUTSIDE RECORDS SUMMARY | 2024-07-09 13:36 | XMS_ITS | Encounter Summary ---
Author Organization [facility] Address [address], [place] [address] Care Team Providers Care Ice Handler Name Role Phone Franklin Squires MD Primary Care Provider [phone] Encounter Details Date Type Department Care Team [...] on filedocumented in this encounter Care Teams Ice Handler Relationship Specialty Start Date End Date Franklin Squires MD 100 [facility] [address] PCP - General Family Practice 03/08/16 documented as of this encounter
--- OUTSIDE RECORDS SUMMARY | 2024-07-09 13:36 | XMS_ITS | Encounter Summary ---
Author Organization [facility] Address [address], [place] [address] Care Team Providers Care Humid System Operator Name Role Phone Franklin Squires MD Primary Care Provider Encounter Details Date Type Department Care Team (Late st Contact Info) Description 11/23/2015 Correspondence External to External, [place] [address] LETTER [facility] Social History Tobacco [...] on filedocumented in this encounter Care Teams Humid System Operator Relationship Specialty Start Date End Date Franklin Squires MD [address] [place] [address] [place] [address] PCP - General Family Practice 03/08/16 documented as of this encounter
--- OUTSIDE RECORDS SUMMARY | 2024-07-09 13:36 | XMS_ITS | Encounter Summary ---
Author Organization [facility] Address [address], [place] [address] Care Team Providers Care Cotton Machine Operator Name Role Phone Franklin Squires [...] on filedocumented in this encounter Care Teams Cotton Machine Operator Relationship Specialty Start Date End Date Franklin Squires MD [address] [facility] [address] PCP - General Family Practice 03/08/16 documented as of this encounter
--- OUTSIDE RECORDS SUMMARY | 2024-07-09 13:36 | XMS_ITS | Clinical Summary ---
Author Organization [employer] [facility] Address [place], [place] [address] Care Team Providers Care Hr Receptionist Name Role Phone Zelalem Cohen MD Unavailable [phone] May Randle) Unavailable Franklin Squires MD Primary Care Provider Fred Craft Unavailable [phone] Diane Charles MD Unavailable [phone] Julia Ware RN Unavailable [phone] Allergies Active Allergy Reactions Criticality Noted Date [...] bedIndications:Non-heal ing surgical wound, subsequent encounter Drive UBmatrix 8 inch low loss mattress and 1/2 rails. Semi-electric bed. Length of need 6 weeks. Bed comptometrist:no 1 unit 018 Active acetaminophen (TYLENOL EXTRA STRGTH) 500 mg tabletIndications:fever ,pain Take 1,000 mg by mouth three times daily. Max acetaminophen dose: 4000mg in 24 hrs. Active sodium chloride (AYR SALINE NASL) Inhale 2-3 Sprays in the nostril(s) once daily if needed. 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 SenSura Buckholts Click Ostomy Barrier with belt tabs 60mm, Cut-to-Fit 01/16 - 2 11/18. Item #[id number]. 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 02/19/2007 09/27/2008 Depressive disorder, not elsewhere classified 02/14/20 07 01/15/2018 Abnormality of gait 12/24/2006 09/27/20 08 Urinary tract infection, site not specified 12/24/2006 01/15/2018 BENIGN ESSENTIAL HYPERTENSION 12/24/2006 04/17/2016 Overview: borderline Necrotizing fasciitis 2018 Type 2 diabetes mellitus Encounters Date Type Department Care Team Description 07/08/2024 1:30 PM CDT Nurse/Clinic Staff Only [address] [address] Nurse/Clinic Staff Only (Cath Change ) 07/08/2024 Travel 07/07/[address] [address] Franklin Squires MD Refill Request (Donepezil) 07/02/2024 1:30 PM CDT Office Visit [address] [address] Franklin Squires MD Medication Management 07/02/2024 Travel 07/01/2024 Anticoagulation (warfarin) [address] [address] , [facility] Anticoagulation (Acelis) 06/17/2024 Anticoagulation (warfarin) [address] [address] 1, [facility] Anticoagulation (acelis) 06/11/[address] [address] Franklin Squires MD Refill Request (Warfarin) 06/03/2024 Anticoagulation (warfarin) [address] [place] [address] 1, [facility] Anticoagulation (Acelis) 06/02/[address] [place] [address] Franklin Squires MD Refill Request (Oxycodone) 05/20/2024 Anticoagulation (warfarin) [address] [place] [address] 1, [facility] Anticoagulation (Acelis) 05/14/[address] [place] [address] Franklin Squires MD Refill Request (Baclofen) 05/14/[address] [place] [address] Franklin Squires MD Refill Request (Warfarin) 05/13/2024 Anticoagulation (warfarin) [address] [place] [address] 1, [facility] Anticoagulation (Acelis) 05/11/[address] [place] [address] Franklin Squires MD Form (Physician Orders and Home Health Certification and Plan of Care.) 05/06/2024 Anticoagulation (warfarin) [address] [place] [address] 1, [facility] Anticoagulation (Acelis) 05/05/[address] [place] [address] Franklin Squires MD Form (60 Day Summary Report) 05/05/[address] [place] [address] Franklin Squires MD Refill Request (Warfarin) 05/04/2024 Telephone [facility] [address] [place] [phone] Franklin Squires MD Form 05/04/[address] [phone] Franklin Squires MD Refill Request (Oxycodone) 05/01/2024 Anticoagulation (warfarin) [address] [phone] [place] [address] [facility] Anticoagulation (Acelis) 04/29/[address] [phone] Franklin Squires MD Refill Request (Duloxetine, Donepezil) 04/24/2024 2:49 PM CDT - 04/24/2024 2:50 PM CDT Emergency [facility] [address] [place] [address] Discharge Disposition: Against Medical Advice or Discontinued Care 04/24/2024 Travel 04/24/2024 Anticoagulation (warfarin) [address] [phone] [place] [address] Inr Clinic In [facility] Anticoagulation (Acelis) 04/21/[address] [address] Franklin Squires MD Refill Request (Gabapentin) 04/20/[address] [phone] Franklin Squires MD Form (Physician Orders. Urinary Catheter - Suprapubic. ) 04/20/[address] [address] Franklin Squires MD Refill Request (Gabapentin 400 mg) 04/13/2024 Telephone [facility] 100 [facility] [place] [address] Franklin Squires MD Form (Standard Written Order: Rehab Accessories. Cushion, Quadtro Select HI PRO 20x20 or 11x11 CELL) from Last 3 Months Immunizations Name Administration Dates Next Due COVID-19 vaccine (KipCall-Bio NTech 30mcg/0.3mL) 12YO+ BIVALENT PF, MDV 10/22/2022 [...] Care Team (Late st Contact Info) Description 07/29/2024 1:30 PM CDT Nurse/Clinic Staff Only [address] [address] Health Maintenance Due Date Last Done Comments [...] MONITOR AC Routine 04/24/2024 12:00 AM CDT from Last 3 Months Results * LIPID PANEL W REFLEX MEASURED LDL (07/02/2024 2:14 PM CDT) [facility] CHOLESTEROL,TOTAL 122 100 - 199 mg/dL 07/02/2024 3:04 PM CDT [facility] Comment: Cholesterol, Total Reference Ranges Desirable <200 mg/dL Borderline 200-239 mg/dL High >=240 mg/dL TRIGLYCERIDES 58 <150 mg/dL 07/02/2024 3:04 PM CDT [facility] HDL CHOLESTEROL 56 >40 mg/dL 3:04 PM CDT [facility] NON-HDL CHOLESTEROL 66 <145 mg/dl 07/02/2024 3:04 PM T [facility] CHOL/HDL RATIO 2.18 <4.50 07/02/2024 3:04 PM CDT [facility] LDL CHOLESTEROL 54 <=130 mg/dL 07/02/2024 3:04 PM T [facility] VLDL CHOLESTEROL 12 <=30 mg/dL 07/02/2024 3:04 PM T [facility] PROVIDER ORDERED STATUS RANDOM 07/02/2024 3:04 PM T [facility] Blood BLOOD SPECIMEN / Unknown Venipuncture / Unknown 07/02/2024 2:14 PM CDT 07/02/2024 2:14 PM CDT Franklin Squires MD CHEMISTRY [facility] [address] [place] [address] * (ABNORMAL) CBC W PLT NO DIFF (07/02/2024 2:14 PM CDT) [facility] WHITE BLOOD COUNT 8.5 4.5 - 11.0 thou/cu mm 07/02/2024 2:58 PM CDT [facility] RED BLOOD COUNT 4.75 4.30 - 5.90 mil/cu mm 07/02/2024 2:58 PM CDT [facility] HEMOGLOBIN 14.1 13.5 - 17.5 g/dL 07/02/2024 2:58 PM CDT [facility] HEMATOCRIT 42.2 37.0 - 53.0 % 07/02/2024 2:58 PM CDT [facility] MCV 89 80 - 100 fL 07/02/2024 2:58 PM CDT [facility] MCH 29.7 26.0 - 34.0 pg 07/02/2024 2:58 PM CDT [facility] MCHC 33.4 32.0 - 36.0 g/dL 07/02/2024 2:58 PM CDT [facility] RDW 18.3(H) 11.5 - 15.5 % 07/02/2024 2:58 PM CDT [facility] PLATELET COUNT 159 140 - 440 thou/cu mm 07/02/2024 2:58 PM CDT [facility] MPV 10.7 6.5 - 11.0 fL 07/02/2024 2:58 PM CDT [facility] Blood BLOOD SPECIMEN / Unknown Venipuncture / Unknown 07/02/2024 2:14 PM CDT 07/02/2024 2:14 PM CDT Franklin Squires MD HEMATOLOGY [facility] [address] [place] [address] * HEMOGLOBIN A1C MONITORING (POCT) (07/02/2024 2:14 PM CDT) [facility] HEMOGLOBIN A1C MONITORING (POCT) 5.9 <=6.4 % 07/02/2024 2:49 PM CDT [facility] Blood BLOOD SPECIMEN / Unknown Venipuncture / Unknown 07/02/2024 2:14 PM CDT 07/02/2024 2:14 PM CDT Narrative [facility] - 07/02/2024 2:49 PM CDT [...] Anemias, Splenectomy ? Franklin Squires MD CHEMISTRY [facility] [address] [place] [address] * (ABNORMAL) BASIC METABOLIC PANEL (07/02/2024 2:14 PM CDT) [facility] SODIUM 138 136 - 145 mmol/L 07/02/2024 3:04 PM [facility] POTASSIUM 4.1 3.5 - 5.1 mmol/L 07/02/2024 3:04 PM [facility] CHLORIDE 99 98 - 107 mmol/L 07/02/2024 3:04 PM [facility] CO2,TOTAL 29 22 - 29 mmol/L 07/02/2024 3:04 PM [facility] ANION GAP 10 5 - 18 07/02/2024 3:04 PM [facility] GLUCOSE 95 70 - 99 mg/dL 07/02/2024 3:04 PM [facility] CALCIUM 9.5 8.8 - 10.2 mg/dL 07/02/2024 3:04 PM CDT [facility] BUN 18 8 - 23 mg/dL 07/02/2024 3:04 PM [facility] CREATININE 0.69(L) 0.70 - 1.20 mg/dL 07/02/2024 3:04 PM T [facility] BUN/CREAT RATIO 26(H) 10 - 20 3:04 PM [facility] eGFR >90 >90 mL/min/1.7 3m2 07/02/2024 3:04 PM [facility] Comment:As of 2022, eG FR [...] 2:14 PM CDT Franklin Squires MD CHEMISTRY [facility] [address] [place] [address] * HOME MONITOR AC (07/01/2024 12:00 AM CDT) Only the most recent of8 resultswithin the time period is included. PATIENT REPORTED HOME INR 2.8 2.00 - 3.00 [facility]IT[facility] 07/01/2024 Franklin Squires MD OTHER [facility] [address] [place] [address] from Last 3 Months Additional Health Concerns [...] months since positive culture): resides in acute/intermediate care, receiving hemodialysis, has chronic open wounds/skin damage, has long-term percutaneous indwelling medical devices Exclusions for nares collection (if <12 months since positive culture) include all of the previous exclusions plus patients on antibiotics 7 days prior to collection 03/13/2018 03/20/2024 Advance Directives Documents on File Type Date Recorded 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 Healthcare Directive 05/09/2023 023 Healthcare [...] Code Status Discussion: Reviewed Preferences Care Teams Hr Receptionist Relationship Specialty Start Date End Date Franklin Squires MD [address] [place] [address] PCP - General Family Practice 10/18/15 Zelalem Cohen MD Physical Therapist 03/13/12 May Randle Md, MD Physical Medicine and Rehabilitation 03/13/12 [place], FAUSTINO Krueger 100 [place] [address] Hand Silvering Supervisor 05/03/17 Diane Charles MD [address] [place] [address] Surgery - Urology 01/17/23 Julia Ware, RN [address] [place] [address] Registered Nurse 07/17/23
--- OUTSIDE RECORDS SUMMARY | 2024-07-09 13:36 | XMS_ITS | Encounter Summary ---
Author Organization [facility] Address [address] [address] Care Team Providers Care Supervisor Boarding Name Role Phone Franklin Squires MD Primary Care Provider [phone] Encounter Details Date Type Department Care Team (Latest Contact Info) Description 12/11/2017 Correspondence Physiatry/Physical Medicine at [facility] [address] [facility] [place] [address] May Randle MD [address] [place] [address] HANDI MEDICAL SUPPLY Social History Tobacco Use [...] filedocumented in this encounter Care Teams Supervisor Boarding Relationship Specialty Start Date End Date Franklin Squires MD [address] [place] [address] [place] [address] PCP - General Family Practice 03/08/16 documented as of this encounter
--- OUTSIDE RECORDS SUMMARY | 2024-07-09 13:36 | XMS_ITS | Continuity of Care Document ---
Author Name [facility] Organization [facility] Care Team Providers Care Press Breaker Name Role Phone [facility] Unavailable Unavailable Problems Combined list of problems from 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 It does not include entries that were removed or entered in error. Problem Status Onset Date Problem Type Date of Resolution Comments Source Abnormal liver function Active Condition [facility] Anemia (SCT 770824117) Active Condition [facility] Anxiety ([facility] 52372071) Active Condition [facility] Autonomic dysreflexia Active Condition [facility] Chronic Pain Syndrome (SCT 890669560) Active Condition [facility] Colostomy present Active Condition [facility] Constipation ([facility]CT 10226783) Active Condition [facility] Continuous opioid dependence Active Condition [facility] COPD - Chronic Obstructive Pulmonary Disease (SCT 71475290) Active Condition [facility] Dementia Active Condition [facility] Depression ([facility] 07118542) Active Condition [facility] Diabetes Mellitus Type 2 (SCT 49809623) Active Condition [facility] Ependymoma of spinal cord Active Condition [facility] Hearing Loss (SCT 74507756) Active Condition [facility] History of Deep Vein Thrombosis (SCT 303966360) Active Condition [facility] History of pressure injury Active Condition [facility] HTN - Hypertension (SCT 29205781) Active Condition [facility] Hyperlipidemia (SCT 39298407) Active Condition [facility] Hyponatremia Active Condition [facility] Long-term current use of anticoagulant Active Condition [facility] Neurogenic Bladder (SCT 937438054) Active Condition [facility] Neurogenic bowel Active Condition [facility] Osteoporosis ([facility] 37216987) Active Condition [facility] Paraplegia Active Condition [facility] Spasticity Active Condition [facility] Suprapubic urinary catheter in situ Active Condition [facility] Supraventricular tachycardia Active Condition [facility] Tinnitus ([facility] 88011013) Active Condition [facility] Vitamin D Deficiency ([facility] 8002075) Active Condition [facility] Diagnosis: ICD-10-CM Z73.6 Limitation of activities due to disability Active Diagnosis [facility] Diagnosis: ICD-10-CM G82.20 Paraplegia, unspecified Active Diagnosis [facility] Diagnosis: ICD-10-CM Z43.3 Encounter for attention to colostomy Active Diagnosis [facility] Diagnosis: ICD-10-CM Z71.3 Dietary counseling and surveillance Active Diagnosis [facility] Diagnosis: ICD-10-CM F32.A Depression, unspecified Active Diagnosis [facility] Medications Combined list of outpatient medications from Department of Defense and [facility] Affairs facilities.Medications provided include 1) outpatient [...] ed by: PIPO BARRETT Document ed at: [facility] ORAL ACTIVE Jagdish BARRETT 2022 [facility] AMLODIPINE BESYLATE (AMLODIPINE BESYLATE), 5 MG, TABLET, ORAL, [employer] 1000 ea. BOTTLE Active [id number] 2023 90 Pharmac y Data Transac tion Service Facilit y AMLODIPINE BESYLATE (amlodipine besylate), 5 MG, TABLET, ORAL, [employer] PHARMACEU, 1000 ea. BOTTLE Active [id number] 2023 90 Pharmac y Data Transac tion Service Facilit y AMLODIPINE BESYLATE 2.5MG TAB AMLODIPI NE BESYLATE 2.5MG TAB Non-VA TAKE TWO TABLETS BY MOUTH EVERY MORNING Feb 05, 2023 [place] Document ed by: PIPO BARRETT Document ed at: [facility] ORAL ACTIVE Jagdish BARRETT 2022 [facility] AMOX TR-POTASSIU M CLAVULANATE (AMOXICILLI N/POTASSIUM CLAV), 875-125 MG, TABLET, ORAL, [employer]EV[employer] [place], 20 ea. BOTTLE Active [id number] 2022 14 Pharmac y Data Transac tion Service Facilit y AMOXICILLIN -CLAVULANAT E POTASS (amoxicilli n/potassium clavulanate ), 875-125 MG, TABLET, ORAL, [employer] [place],, 20 ea. BOTTLE Active [id number] 2023 20 Pharmac y Data Transac tion Service Facilit y AMOXICILLIN -CLAVULANAT E POTASS (amoxicilli n/potassium clavulanate ), 875-125 MG, TABLET, ORAL, [facility] [place],, 20 ea. BOTTLE Active [id number] 2023 56 Pharmac y Data Transac tion Service Facilit y ARIPIPRAZOL E (aripiprazo le), 2 MG, TABLET, ORAL, XLCARE PHARMACE, 500 ea. BOTTLE Active [id number] 2023 180 Pharmac y Data Transac tion Service Facilit y ARIPIPRAZOL E (aripiprazo le), 2 MG, TABLET, ORAL, [employer]LC[employer] PHARMACE, 500 ea. BOTTLE Active [id number] 2023 180 Pharmac y Data Transac tion Service Facilit y ARIPIPRAZOL E TAB ARIPIPRA ZOLE TAB Non-VA TAKE 2MG BY MOUTH TWICE A DAY May 29, 2022 Non-VA Document ed by: SHANTAL HANSON Document ed at: [facility] ORAL ACTIVE Jey HANSON 2021 [facility] ATIVAN (LORAZEPAM) , 0.5 MG, TABLET, ORAL, VALEANT, 100 ea. BOTTLE Active [id number] 2023 120 Pharmac y Data Transac [...] BIOCON PHARMA I, 1000 ea. BOTTLE Active [id number] 2023 90 Pharmac y Data Transac tion Service Facilit y ATORVASTATI N CALCIUM (atorvastat in calcium), 40 MG, TABLET, ORAL, BIOCON PHARMA I, 1000 ea. BOTTLE Active [id number] 2023 90 Pharmac y Data Transac tion Service Facilit y BACLOFEN (baclofen), 20 MG, TABLET, ORAL, MARLEX PHARM., 1000 ea. BOTTLE Active [id number] 2023 540 Pharmac y Data Transac tion Service Facilit y BACLOFEN (baclofen), 20 MG, TABLET, ORAL, MARLEX PHARM., 1000 ea. BOTTLE Active [id number] 2023 540 Pharmac y Data Transac tion Service Facilit y BACLOFEN 20MG TAB BACLOFEN 20MG TAB Non-VA TAKE TWO TABLETS BY MOUTH THREE TIMES A DAY Feb 05, 2023 Non-VA Document ed by: PIPO BARRETT Document ed at: [facility] ORAL ACTIVE Jagdish BARRETT 2022 [facility] BUPROPION HCL 150MG 12HR TAB,SA BUPROPIO N HCL 150MG 12HR TAB,SA Non-VA TAKE ONE TABLET BY MOUTH TWICE A DAY May 29, 2022 Non-VA Document ed by: SHANTAL HANSON Document ed at: [facility] ORAL ACTIVE Jey HANSON 2021 [facility] BUPROPION HCL SR (bupropion HCl), 150 MG, TAB SR 12H, ORAL, PAVEL PHARMACEU, 60 ea. BOTTLE Active [id number] 2023 180 Pharmac y Data Transac tion Service Facilit y BUPROPION HCL SR (bupropion HCl), 150 MG, TAB SR 12H, ORAL, PAVEL PHARMACEU, 60 ea. BOTTLE Active [id number] 2023 180 Pharmac y Data Transac [...] ORAL, AUROBINDO PHARM, 50 ea. BOTTLE Active [id number] 2023 70 Pharmac y Data Transac tion Service Facilit y DONEPEZIL HCL (DONEPEZIL HCL), 5 MG, TABLET, ORAL, [employer] 1000 ea. BOTTLE Active [id number] 2023 90 Pharmac y Data Transac tion Service Facilit y DONEPEZIL HCL (DONEPEZIL HCL), 5 MG, TABLET, ORAL, [employer] 1000 ea. BOTTLE Cancele d [id number] : 2023 0 Pharmac y Data Transac tion Service Facilit y DONEPEZIL HCL (DONEPEZIL HCL), 5 MG, TABLET, ORAL, [employer] 1000 ea. BOTTLE Active [id number] 2023 90 Pharmac y Data Transac tion Service Facilit y DONEPEZIL HCL 10MG TAB DONEPEZI L HCL 10MG TAB Non-VA TAKE ONE-HALF TABLET BY MOUTH EVERY DAY May 29, 2022 Non-VA Document ed by: SHANTAL HANSON Document ed at: [facility] ORAL ACTIVE Jey HANSON 2021 [facility] DULOXETINE HCL (duloxetine HCl), 60 MG, CAPSULE DR, ORAL, [employer] 1000 ea. BOTTLE Active [id number] 2023 180 Pharmac y Data Transac tion Service Facilit y DULOXETINE HCL (duloxetine HCl), 60 MG, CAPSULE DR, ORAL, [employer] 1000 ea. BOTTLE Active [id number] 2023 180 Pharmac y Data Transac tion Service Facilit y DULOXETINE HCL 30MG CAP,EC DULOXETI NE HCL 30MG CAP,EC Non-VA TAKE 2 CAPSULES BY MOUTH TWICE A DAY May 29, 2022 Non-VA Document ed by: SHANTAL HANSON Document ed at: [facility] ORAL ACTIVE Jey HANSON 2021 [facility] FAMOTIDINE (famotidine ), 20 MG, TABLET, ORAL, Remark., 1000 ea. BOTTLE Active [id number] 2023 180 Pharmac y Data Transac tion Service Facilit y FAMOTIDINE 20MG TAB FAMOTIDI NE 20MG TAB Non-VA TAKE ONE TABLET BY MOUTH TWICE A DAY May 29, 2022 Non-VA Document ed by: SHANTAL HANSON Document ed at: [facility] ORAL ACTIVE Jey HANSON 2021 [facility] FUROSEMIDE (furosemide ), 40 MG, TABLET, ORAL, [employer] [facility], 1000 ea. BOTTLE Active [id number] 2023 180 Pharmac y Data Transac tion Service Facilit y FUROSEMIDE 40MG TAB FUROSEMI DE 40MG TAB Non-VA TAKE ONE TABLET BY MOUTH TWICE A DAY May 29, 2022 Non-VA Document ed by: SHANTAL HANSON Document ed at: [facility] ORAL ACTIVE Jey HANSON 2021 [facility] GABAPENTIN (gabapentin ), 400 MG, CAPSULE, ORAL, [employer] 500 ea. BOTTLE Active [id number] 2023 270 Pharmac y Data Transac tion Service Facilit y GABAPENTIN (gabapentin ), 400 MG, CAPSULE, ORAL, SCIEGEN PHARMAC, 500 ea. BOTTLE Active [id number] 2023 270 Pharmac y Data Transac tion Service Facilit y GABAPENTIN (gabapentin ), 400 MG, CAPSULE, ORAL, XLCARE PHARMACE, 500 ea. BOTTLE Cancele d [id number] : 2023 0 Pharmac y Data Transac [...] ORAL, AUROBINDO PHARM, 500 ea. BOTTLE Active [id number] 2023 120 Pharmac y Data Transac tion Service Facilit y LORAZEPAM (lorazepam) , 0.5 MG, TABLET, ORAL, LEADING PHARMA, 1000 ea. BOTTLE Active [id number] 2023 120 Pharmac y Data Transac tion Service Facilit y LORAZEPAM (lorazepam) , 0.5 MG, TABLET, ORAL, LEADING PHARMA, 1000 ea. BOTTLE Active [id number] 2023 120 Pharmac y Data Transac tion Service Facilit y LORAZEPAM (lorazepam) , 0.5 MG, TABLET, ORAL, LEADING PHARMA, 1000 ea. BOTTLE Active [id number] 2023 120 Pharmac y Data Transac tion Service Facilit y LORAZEPAM (lorazepam) , 0.5 MG, TABLET, ORAL, LEADING PHARMA, 500 ea. BOTTLE Active [id number] 2023 120 Pharmac y Data Transac tion Service Facilit y LORAZEPAM 0.5MG TAB LORAZEPA M 0.5MG TAB Non-VA TAKE ONE TABLET BY MOUTH THREE TIMES A DAY AND TAKE TWO TABLETS BY MOUTH AT BEDTIME Feb 05, 2023 Non-VA Document ed by: PIPO BARRETT Document ed at: [facility] ORAL ACTIVE Jagdish BARRETT 20[address] [facility] MILK OF MAGNESIA MILK OF [...] ed by: PIPO BARRETT Document ed at: [facility] NASAL ACTIVE Jagdish BARRETT 2022 [facility] OXYCODONE HCL (OXYCODONE HCL), 10 MG, TABLET, ORAL, [employer] 100 ea. BOTTLE Active [id number] 2023 120 Pharmac y Data Transac tion Service Facilit y OXYCODONE HCL (OXYCODONE HCL), 10 MG, TABLET, ORAL, [employer] 100 ea. BOTTLE Active [id number] 2023 120 Pharmac y Data Transac tion Service Facilit y OXYCODONE HCL (OXYCODONE HCL), 10 MG, TABLET, ORAL, [employer] 100 ea. BOTTLE Active [id number] 2023 120 Pharmac y Data Transac tion Service Facilit y OXYCODONE HCL (OXYCODONE HCL), 10 MG, TABLET, ORAL, [employer] 100 ea. BOTTLE Active [id number] 2023 120 Pharmac y Data Transac tion Service Facilit y OXYCODONE HCL (OXYCODONE HCL), 10 MG, TABLET, ORAL, [employer] 100 ea. BOTTLE Active [id number] 2023 120 Pharmac y Data Transac tion Service Facilit y OXYCODONE HCL (OXYCODONE HCL), 10 MG, TABLET, ORAL, [employer] 100 ea. BOTTLE Active [id number] 2023 120 Pharmac y Data Transac tion Service Facilit y OXYCODONE HCL (OXYCODONE HCL), 10 MG, TABLET, ORAL, [employer] 100 ea. BOTTLE Active [id number] 2022 120 Pharmac y Data Transac tion Service Facilit y OXYCODONE HCL 5MG TAB OXYCODON E HCL 5MG TAB Non-VA TAKE TWO TABLETS BY MOUTH FOUR TIMES A DAY Feb 05, 2023 Non-VA Document ed by: PIPO BARRETT [facility] Jagdish BARRETT [address] [facility] POTASSIUM CHLORIDE (potassium chloride), 10 MEQ, TAB ER PRT, ORAL, XLCARE PHARMACE, 100 ea. BOTTLE Active [id number] 2023 180 Pharmac y Data Transac tion Service Facilit y POTASSIUM CHLORIDE (potassium chloride), 10 MEQ, TAB ER PRT, ORAL, XLC[employer] PHARMACE, 100 ea. BOTTLE Active [id number] 2023 180 Pharmac y Data Transac tion Service Facilit y POTASSIUM CHLORIDE (potassium chloride), 20 MEQ, TAB ER PRT, ORAL, XLC[employer] PHARMACE, 100 ea. BOTTLE Active [id number] 2023 90 Pharmac y Data Transac [...] WHITLOCK&N/UNI LUIS, 30 g TUBE Cancele d [id number] : 2023 0 Pharmac y Data Transac tion Service Facilit y WARFARIN SODIUM (warfarin sodium), 5 MG, TABLET, ORAL, [employer] 1000 ea. BOTTLE Cancele d [id number] : 2022 0 Pharmac y Data Transac tion Service Facilit y WARFARIN SODIUM (WARFARIN SODIUM), 5 MG, TABLET, ORAL, [employer]EV[employer] [place], 1000 ea. BOTTLE Active [id number] 2023 25 Pharmac y Data Transac tion Service Facilit y WARFARIN SODIUM (WARFARIN SODIUM), 5 MG, TABLET, ORAL, [employer] [place], 1000 ea. BOTTLE Active [id number] 2023 12 Pharmac y Data Transac tion Service Facilit y WARFARIN SODIUM (WARFARIN SODIUM), 5 MG, TABLET, ORAL, [employer] [place], 1000 ea. BOTTLE Active [id number] 2023 40 Pharmac y Data Transac tion Service Facilit y WARFARIN SODIUM (WARFARIN SODIUM), 5 MG, TABLET, ORAL, [employer]EV[employer] [place], 1000 ea. BOTTLE Cancele d [id number] : 2022 0 Pharmac y Data Transac tion Service Facilit y WARFARIN SODIUM (warfarin sodium), 7.5 MG, TABLET, ORAL, [employer]EV[employer] [place], 100 ea. BOTTLE Active [id number] 2023 51 Pharmac y Data Transac tion Service Facilit y WARFARIN SODIUM (warfarin sodium), 7.5 MG, TABLET, ORAL, [employer]EV[employer] [place], 100 ea. BOTTLE Active [id number] 2023 78 Pharmac y Data Transac tion Service Facilit y WARFARIN TAB WARFARIN TAB Non-VA TAKE 5MG BY MOUTH SUN/THUR S AND TAKE 7.5MG BY MOUTH ALL OTHER DAYS Feb 05, 2023 Non-VA Document ed by: PIPO BARRETT Document ed at: [facility] ORAL ACTIVE Jagdish BARRETT 2022 [facility] Allergies, Adverse Reactions, Alerts Combined list of allergies from 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 It does not include entries that were removed or entered in error. Substance Category Reaction Severity Reaction type Status Date Reported Comments Source AMOXICILLIN Propensity to adverse reactions to drug (finding) Eruption active 2 [facility] METOLAZONE Propensity to adverse reactions to drug (finding) Itching active 2 [facility] MORPHINE Propensity to adverse reactions to drug (finding) Delirium active 2 [facility] PIPERACILLIN Propensity to adverse reactions to drug (finding) Eruption active 2 [facility] SULFA DRUGS Propensity to adverse reactions to drug (finding) Eruption active 2 [facility] TAZOBACTAM SODIUM Propensity to adverse reactions to drug (finding) Eruption active 2 [facility] Immunizations Combined list of available immunizations from the 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 Immunization Series Date Given Administered By Site Reaction Lot Number CVX Code Drug Machine Edge Bander Status Comments Source COVID-19 (Roadmunk), MRNA, LNP-S, BIVALENT, PF, 30 MCG/0.3 ML DOSE 2021 300 complet ed [facility] INFLUENZA, ADJUVANTED, QUADRIVALENT, PF 2021 205 complet ed [facility] INFLUENZA, UNSPECIFIED FORMULATION 2021 88 complet ed 's recall [facility] TD (ADULT), 5 LF TETANUS TOXOID, PRESERVATIVE FREE, ADSORBED 2021 113 complet ed [facility] INFLUENZA, ADJUVANTED, QUADRIVALENT, PF 2020 205 complet ed [facility] INFLUENZA, UNSPECIFIED FORMULATION 2020 88 complet ed [facility] COVID-19 (Roadmunk), MRNA, LNP-S, PF, 30 MCG/0.3 ML DOSE 3 2020 208 complet ed [facility] COVID-19 (Roadmunk), MRNA, LNP-S, PF, 30 MCG/0.3 ML DOSE 2 2020 208 complet ed [facility] COVID-19 (PFIZER), MRNA, LNP-S, PF, 30 MCG/0.3 ML DOSE 1 2020 208 complet ed [facility] INFLUENZA, ADJUVANTED, QUADRIVALENT, PF 2019 205 complet ed [facility] INFLUENZA, ADJUVANTED, TRIVALENT, PF 2018 168 complet ed [facility] INFLUENZA, ADJUVANTED, TRIVALENT, PF 2017 168 complet ed [facility] INFLUENZA, HIGH-DOSE, TRIVALENT, PF 2016 135 complet ed [facility] INFLUENZA, ADJUVANTED, TRIVALENT, PF 2016 168 complet ed [facility] INFLUENZA, HIGH-DOSE, TRIVALENT, PF 2015 135 complet ed [facility] ZOSTER LIVE 2015 121 complet ed [facility] PNEUMOCOCCAL CONJUGATE PCV [address] [facility] INFLUENZA, HIGH-DOSE, TRIVALENT, PF 2014 135 complet ed [facility] INFLUENZA, HIGH-DOSE, TRIVALENT, PF 2013 135 complet ed [facility] INFLUENZA, UNSPECIFIED FORMULATION 2013 88 complet ed [facility] INFLUENZA, SPLIT VIRUS, TRIVALENT, PRESERVATIVE 2012 141 complet ed [facility] ZOSTER LIVE [address] [facility] INFLUENZA, SPLIT VIRUS, TRIVALENT, PRESERVATIVE 2011 141 complet ed [facility] INFLUENZA, SPLIT VIRUS, TRIVALENT, PF 2010 140 complet ed [facility] PNEUMOCOCCAL POLYSACCHARID E PPV23 2010 33 complet ed [facility] TDAP [address] [facility] INFLUENZA, SPLIT VIRUS, TRIVALENT, PRESERVATIVE 2009 141 complet [facility] NOVEL INFLUENZA-H1N 1-09, ALL FORMULATIONS 2009 128 complet ed [facility] INFLUENZA, SPLIT VIRUS, TRIVALENT, PF 2008 140 complet ed [facility] PNEUMOCOCCAL POLYSACCHARID E PPV23 2008 33 complet ed [facility] INFLUENZA, SPLIT VIRUS, TRIVALENT, PRESERVATIVE 2008 141 complet ed [facility] INFLUENZA, SPLIT VIRUS, TRIVALENT, PRESERVATIVE 2007 141 complet ed [facility] INFLUENZA, SPLIT VIRUS, TRIVALENT, PRESERVATIVE 2005 141 complet ed [facility] INFLUENZA, SPLIT VIRUS, TRIVALENT, PRESERVATIVE 2004 141 complet ed [facility] PNEUMOCOCCAL POLYSACCHARID E PPV23 2004 33 complet ed [facility] INFLUENZA, SPLIT VIRUS, TRIVALENT, PRESERVATIVE 2003 141 complet ed [facility] Results Combined list of recent chemistry, hematology [...] 03:10 PM Reporting Lab: [facility] [address] Performing Lab: [facility] [address] [place] [facility] BASIC METABOLI C PANEL+MG UREA NITROGEN [MASS/VOLU ME] IN SERUM OR PLASMA 15 mg/dL 8 - 02/13 Specimen Type: PLASMA No comment entered. Ordering Provider: ANKUSH BOWMAN Report Released Date/Time: Feb 05, 2023 03:10 PM Reporting Lab: [facility] [address] Performing Lab: [facility] [address] [place] [facility] BASIC METABOLI C PANEL+MG GLUCOSE [MASS/VOLU ME] IN SERUM OR PLASMA 140 mg/dL 70 - 100 02/13 H Specimen Type: PLASMA No comment entered. Ordering Provider: ANKUSH BOWMAN Report Released Date/Time: Feb 05, 2023 03:10 PM Reporting Lab: [facility] [address] Performing Lab: [facility] [address] [place] [facility] BASIC METABOLI C PANEL+MG SODIUM [MOLES/VOL UME] IN SERUM OR PLASMA 135 mmol/L 136 - 145 04/05 /2023 L Specimen Type: PLASMA No comment entered. Ordering Provider: ANKUSH BOWMAN Report Released Date/Time: Feb 05, 2023 03:10 PM Reporting Lab: [facility] [address] Performing Lab: [facility] [address] [place] [facility] BASIC METABOLI C PANEL+MG POTASSIUM [MOLES/VOL UME] IN SERUM OR PLASMA 4.0 mmol/L 3.5 - 5.1 02/13 Specimen Type: PLASMA No comment entered. Ordering Provider: ANKUSH BOWMAN Report Released Date/Time: Feb 05, 2023 03:10 PM Reporting Lab: [facility] [address] Performing Lab: [facility] [address] [place] [facility] BASIC METABOLI C PANEL+MG CHLORIDE [MOLES/VOL UME] IN SERUM OR PLASMA 99 mmol/L 98 - 107 02/13 Specimen Type: PLASMA No comment entered. Ordering Provider: ANKUSH BOWMAN Report Released Date/Time: Feb 05, 2023 03:10 PM Reporting Lab: [facility] [address] Performing Lab: [facility] [address] [place] [facility] BASIC METABOLI C PANEL+MG CARBON DIOXIDE, TOTAL [MOLES/VOL UME] IN SERUM OR PLASMA 29 mmol/L 22 - 29 02/13 Specimen Type: PLASMA No comment entered. Ordering Provider: ANKUSH BOWMAN Report Released Date/Time: Feb 05, 2023 03:10 PM Reporting Lab: [facility] [address] Performing Lab: [facility] [address] [place] [facility] BASIC METABOLI C PANEL+MG CALCIUM [MASS/VOLU ME] IN SERUM OR PLASMA 9.2 mg/dL 8.4 - 10.2 02/13 Specimen Type: PLASMA No comment entered. Ordering Provider: ANKUSH BOWMAN Report Released Date/Time: Feb 05, 2023 03:10 PM Reporting Lab: [facility] [address] Performing Lab: [facility] [address] [place] [facility] BASIC METABOLI C PANEL+MG MAGNESIUM [MASS/VOLU ME] IN SERUM OR PLASMA 2.0 mg/dL 1.6 - 2.6 02/13 Specimen Type: PLASMA No comment entered. Ordering Provider: ANKUSH BOWMAN Report Released Date/Time: Feb 05, 2023 03:10 PM Reporting Lab: [facility] [address] Performing Lab: [facility] [address] [place] [facility] BASIC METABOLI C PANEL+MG ANION GAP IN SERUM OR PLASMA 7 mmol/L 5 - 15 02/13 Specimen Type: PLASMA No comment entered. Ordering Provider: ANKUSH BOWMAN Report Released Date/Time: Feb 05, 2023 03:10 PM Reporting Lab: [facility] [address] Performing Lab: [place] [id number] [place] [facility] BASIC METABOLI C PANEL+MG GLOMERULAR FILTRATION RATE/1.73 SQ M.PREDICTE D [VOLUME RATE/AREA] IN SERUM, PLASMA OR BLOOD BY CREATININE -BASED FORMULA (CKD-EPI) >90 60 02/13 Specimen Type: PLASMA No comment entered. Ordering Provider: ANKUSH BOWMAN Report Released Date/Time: Feb 05, 2023 03:10 PM Reporting Lab: [facility] [address] Performing Lab: [facility] [address] [place] [facility] CYSTATIN C WITH EGFR CYSTATIN C [MASS/VOLU ME] IN SERUM OR PLASMA 1.27 mg/L 0.51 - 1.05 02/13 H Specimen Type: PLASMA No comment entered. Ordering Provider: ANKUSH BOWMAN Report Released Date/Time: Feb 05, 2023 03:10 PM Reporting Lab: [facility] [address] Performing Lab: [facility] [address] [place] [facility] CYSTATIN C WITH EGFR CYSTATIN C AND GLOMERULAR FILTRATION RATE BY CYSTATIN C-BASED FORMULA PANEL - SERUM OR PLASMA 53 60 02/13 L Specimen Type: PLASMA No comment entered. Ordering Provider: ANKUSH BOWMAN Report Released Date/Time: Feb 05, 2023 03:10 PM Reporting Lab: [facility] [address] Performing Lab: [facility] [address] [place] [facility] URINALYS IS COLOR OF URINE YELLOW 10/08 Specimen Type: URINE No comment entered. Ordering Provider: ANKUSH BOWMAN Report Released Date/Time: Sep 24, 2022 01:55 PM Reporting Lab: [facility] [address] Performing Lab: [facility] [address] [place] [facility] URINALYS IS SPECIFIC GRAVITY OF URINE 1.023 1.003 - 1.035 10/08 Specimen Type: URINE No comment entered. Ordering Provider: ANKUSH BOWAMN Report Released Date/Time: Sep 24, 2022 01:55 PM Reporting Lab: [facility] [address] Performing Lab: [facility] [address] [place] [facility] URINALYS IS BILIRUBIN. TOTAL [PRESENCE] IN URINE BY TEST STRIP NEGATIVE 10/08 Specimen Type: URINE No comment entered. Ordering Provider: ANKUSH BOWMAN Report Released Date/Time: Sep 24, 2022 01:55 PM Reporting Lab: [facility] [id number] Performing Lab: [facility] [address] [place] [facility] URINALYS IS KETONES [MASS/VOLU ME] IN URINE BY TEST STRIP NEGATIVE 10/08 Specimen Type: URINE No comment entered. Ordering Provider: ANKUSH BOWMAN Report Released Date/Time: Sep 24, 2022 01:55 PM Reporting Lab: [facility] [id number] Performing Lab: [facility] [address] [place] [facility] URINALYS IS GLUCOSE [MASS/VOLU ME] IN URINE BY TEST STRIP NEGATIVE mg/dL <30 - 30 10/08 Specimen Type: URINE No comment entered. Ordering Provider: ANKUSH BOWMAN Report Released Date/Time: Sep 24, 2022 01:55 PM Reporting Lab: [facility] [address] Performing Lab: [facility] [address] [place] [facility] URINALYS IS PROTEIN [MASS/VOLU ME] IN URINE BY TEST STRIP 30 mg/dL <20 - 20 10/08 Specimen Type: URINE No comment entered. Ordering Provider: ANKUSH BOWMAN Report Released Date/Time: Sep 24, 2022 01:55 PM Reporting Lab: [facility] [address] Performing Lab: [facility] [address] [place] [facility] URINALYS IS PH OF URINE BY TEST STRIP 7.5 5.0 - 8.0 10/08 Specimen Type: URINE No comment entered. Ordering Provider: ANKUSH BOWMAN Report Released Date/Time: Sep 24, 2022 01:55 PM Reporting Lab: [facility] [address] Performing Lab: [facility] [address] [place] [facility] URINALYS IS LEUKOCYTES [#/AREA] IN URINE SEDIMENT BY MICROSCOPY HIGH POWER FIELD >180/[HP F] 0 - 7 10/08 H Specimen Type: URINE No comment entered. Ordering Provider: ANKUSH BOWMAN Report Released Date/Time: Sep 24, 2022 01:55 PM Reporting Lab: [facility] [address] Performing Lab: [facility] [address] [place] [facility] URINALYS IS BACTERIA [PRESENCE] IN URINE SEDIMENT BY LIGHT MICROSCOPY MANY 10/08 Specimen Type: URINE No comment entered. Ordering Provider: ANKUSH BOWMAN Report Released Date/Time: Sep 24, 2022 01:55 PM Reporting Lab: [facility] [address] Performing Lab: [facility] [address] [place] [facility] URINALYS IS ERYTHROCYT ES [#/AREA] IN URINE SEDIMENT BY MICROSCOPY HIGH POWER FIELD 33 /[HPF] 0 - 3 10/08 H Specimen Type: URINE No comment entered. Ordering Provider: ANKUSH BOWMAN Report Released Date/Time: Sep 24, 2022 01:55 PM Reporting Lab: [facility] [address] Performing Lab: [facility] [address] [place] [facility] URINALYS IS APPEARANCE OF URINE EX.TURBI D 10/08 Specimen Type: URINE No comment entered. Ordering Provider: ANKUSH BOWMAN Report Released Date/Time: Sep 24, 2022 01:55 PM Reporting Lab: [facility] [address] Performing Lab: [facility] [address] [place] [facility] URINALYS IS EPITHELIAL CELLS.SQUA MOUS [#/AREA] IN URINE SEDIMENT BY MICROSCOPY HIGH POWER FIELD 1 /[HPF] 10/08 Specimen Type: URINE No comment entered. Ordering Provider: ANKUSH BOWMAN Report Released Date/Time: Sep 24, 2022 01:55 PM Reporting Lab: [facility] [address] Performing Lab: [facility] [address] [place] [facility] URINALYS IS HEMOGLOBIN [PRESENCE] IN URINE BY TEST STRIP 1+ 10/08 Specimen Type: URINE No comment entered. Ordering Provider: ANKUSH BOWMAN Report Released Date/Time: Sep 24, 2022 01:55 PM Reporting Lab: [facility] [address] Performing Lab: [facility] [address] [place] [facility] URINALYS IS NITRITE [PRESENCE] IN URINE BY TEST STRIP NEGATIVE 10/08 Specimen Type: URINE No comment entered. Ordering Provider: ANKUSH BOWMAN Report Released Date/Time: Sep 24, 2022 01:55 PM Reporting Lab: [facility] [address] Performing Lab: [facility] [address] [place] [facility] URINALYS IS LEUKOCYTE CLUMPS [#/VOLUME] IN URINE BY AUTOMATED COUNT PRESENT 10/08 Specimen Type: URINE No comment entered. Ordering Provider: ANKUSH BOWMAN Report Released Date/Time: Sep 24, 2022 01:55 PM Reporting Lab: [facility] [address] Performing Lab: [facility] [address] [place] [facility] URINALYS IS LEUKOCYTE ESTERASE [PRESENCE] IN URINE BY TEST STRIP 500 10/08 Specimen Type: URINE No comment entered. Ordering Provider: ANKUSH BOWMAN Report Released Date/Time: Sep 24, 2022 01:55 PM Reporting Lab: [facility] [address] Performing Lab: [facility] [address] [place] [facility] ALBUMIN ALBUMIN [MASS/VOLU ME] IN SERUM OR PLASMA 4.2 g/dL 3.5 - 5.2 10/08 Specimen Type: PLASMA No comment entered. Ordering Provider: ANKUSH BOWMAN Report Released Date/Time: Sep 24, 2022 01:55 PM Reporting Lab: [facility] [address] Performing Lab: [facility] [address] [place] [facility] PRE-ALBU MIN PREALBUMIN [MASS/VOLU ME] IN SERUM OR PLASMA 28.4 mg/dL 14.0 - 45.0 10/08 Specimen Type: SERUM No comment entered. Ordering Provider: ANKUSH BOWMAN Report Released Date/Time: Sep 24, 2022 01:55 PM Reporting Lab: [facility] [address] Performing Lab: [facility] [address] [place] [facility] CBC & DIFF LEUKOCYTES [#/VOLUME] IN BLOOD BY AUTOMATED COUNT 7.32 10*3/uL 4.0 - 11.0 10/08 Specimen Type: BLOOD Comment: Automated Differentia l Performed Ordering Provider: ANKUSH BOWMAN Report Released Date/Time: Sep 24, 2022 01:55 PM Reporting Lab: [facility] [address] Performing Lab: [facility] [address] [place] [facility] CBC & DIFF ERYTHROCYT ES [#/VOLUME] IN BLOOD BY AUTOMATED COUNT 4.80 10*6/uL 4.6 - 6.2 10/08 Specimen Type: BLOOD Comment: Automated Differentia l Performed Ordering Provider: ANKUSH BOWMAN Report Released Date/Time: Sep 24, 2022 01:55 PM Reporting Lab: [facility] [address] Performing Lab: [facility] [address] [place] [facility] CBC & DIFF HEMOGLOBIN [MASS/VOLU ME] IN BLOOD 14.7 g/dL 13.5 - 17.9 10/08 Specimen Type: BLOOD Comment: Automated Differentia l Performed Ordering Provider: ANKUSH BOWMAN Report Released Date/Time: Sep 24, 2022 01:55 PM Reporting Lab: [facility] [address] Performing Lab: [facility] [address] [place] [facility] CBC & DIFF HEMATOCRIT [VOLUME FRACTION] OF BLOOD BY AUTOMATED COUNT 44.2 41 - 54 10/08 Specimen Type: BLOOD Comment: Automated Differentia l Performed Ordering Provider: ANKUSH BOWMAN Report Released Date/Time: Sep 24, 2022 01:55 PM Reporting Lab: [facility] [address] Performing Lab: [facility] [address] [place] [facility] CBC & DIFF MCV [ENTITIC VOLUME] BY AUTOMATED COUNT 92.1 fL 80 - 100 10/08 Specimen Type: BLOOD Comment: Automated Differentia l Performed Ordering Provider: ANKUSH BOWMAN Report Released Date/Time: Sep 24, 2022 01:55 PM Reporting Lab: [facility] [address] Performing Lab: [facility] [address] [place] [facility] CBC & DIFF MCH [ENTITIC MASS] BY AUTOMATED COUNT 30.6 pg 27 - 33 10/08 Specimen Type: BLOOD Comment: Automated Differentia l Performed Ordering Provider: ANKUSH BOWMAN Report Released Date/Time: Sep 24, 2022 01:55 PM Reporting Lab: [facility] [address] Performing Lab: [facility] [address] [place] [facility] CBC & DIFF MCHC [MASS/VOLU ME] BY AUTOMATED COUNT 33.3 g/dL 32.0 - 37.5 10/08 Specimen Type: BLOOD Comment: Automated Differentia l Performed Ordering Provider: ANKUSH BOWMAN Report Released Date/Time: Sep 24, 2022 01:55 PM Reporting Lab: [facility] [address] Performing Lab: [facility] [address] [place] [facility] CBC & DIFF PLATELETS [#/VOLUME] IN BLOOD BY AUTOMATED COUNT 144 10*3/uL 150 - 400 10/08 L Specimen Type: BLOOD Comment: Automated Differentia l Performed Ordering Provider: ANKUSH BOWMAN Report Released Date/Time: Sep 24, 2022 01:55 PM Reporting Lab: [facility] [address] Performing Lab: [facility] [address] [place] [facility] CBC & DIFF PLATELET MEAN VOLUME [ENTITIC VOLUME] IN BLOOD BY AUTOMATED COUNT 10.8 fL 7.4 - 10.4 10/08 H Specimen Type: BLOOD Comment: Automated Differentia l Performed Ordering Provider: ANKUSH BOWMAN Report Released Date/Time: Sep 24, 2022 01:55 PM Reporting Lab: [facility] [address] Performing Lab: [facility] [address] [place] [facility] CBC & DIFF NEUTROPHIL S/100 LEUKOCYTES IN BLOOD BY MANUAL COUNT 55.5 10/08 Specimen Type: BLOOD Comment: Automated Differentia l Performed Ordering Provider: ANKUSH BOWMAN Report Released Date/Time: Sep 24, 2022 01:55 PM Reporting Lab: [facility] [address] Performing Lab: [facility] [address] [place] [facility] CBC & DIFF LYMPHOCYTE S/100 LEUKOCYTES IN BLOOD BY MANUAL COUNT 31.4 10/08 Specimen Type: BLOOD Comment: Automated Differentia l Performed Ordering Provider: ANKUSH BOWMAN Report Released Date/Time: Sep 24, 2022 01:55 PM Reporting Lab: [facility] [address] Performing Lab: [facility] [address] [place] [facility] CBC & DIFF MONOCYTES/ 100 LEUKOCYTES IN BLOOD BY AUTOMATED COUNT 10.2 10/08 Specimen Type: BLOOD Comment: Automated Differentia l Performed Ordering Provider: ANKUSH BOWMAN Report Released Date/Time: Sep 24, 2022 01:55 PM Reporting Lab: [facility] [address] Performing Lab: [facility] [address] [place] [facility] CBC & DIFF EOSINOPHIL S/100 LEUKOCYTES IN BLOOD BY AUTOMATED COUNT 2.2 10/08 Specimen Type: BLOOD Comment: Automated Differentia l Performed Ordering Provider: ANKUSH BOWMAN Report Released Date/Time: Sep 24, 2022 01:55 PM Reporting Lab: [facility] [address] Performing Lab: [facility] [address] [place] [facility] CBC & DIFF BASOPHILS/ 100 LEUKOCYTES IN BLOOD BY MANUAL COUNT 0.4 10/08 Specimen Type: BLOOD Comment: Automated Differentia l Performed Ordering Provider: ANKUSH BOWMAN Report Released Date/Time: Sep 24, 2022 01:55 PM Reporting Lab: [facility] [address] Performing Lab: [facility] [address] [place] [facility] CBC & DIFF ERYTHROCYT E DISTRIBUTI ON WIDTH [RATIO] BY AUTOMATED COUNT 15.9 11.5 - 14.5 10/08 H Specimen Type: BLOOD Comment: Automated Differentia l Performed Ordering Provider: ANKUSH BOWMAN Report Released Date/Time: Sep 24, 2022 01:55 PM Reporting Lab: [facility] [address] Performing Lab: [facility] [address] [place] [facility] CBC & DIFF LYMPHOCYTE S [#/VOLUME] IN BLOOD BY AUTOMATED COUNT 2.30 10*3/uL 1.0 - 4.0 10/08 Specimen Type: BLOOD Comment: Automated Differentia l Performed Ordering Provider: ANKUSH BOWMAN Report Released Date/Time: Sep 24, 2022 01:55 PM Reporting Lab: [facility] [address] Performing Lab: [facility] [address] [place] [facility] CBC & DIFF MONOCYTES [#/VOLUME] IN BLOOD BY AUTOMATED COUNT 0.75 10*3/uL 0.1 - 1.0 10/08 Specimen Type: BLOOD Comment: Automated Differentia l Performed Ordering Provider: ANKUSH BOWMAN Report Released Date/Time: Sep 24, 2022 01:55 PM Reporting Lab: [facility] [address] Performing Lab: [facility] [address] [place] [facility] CBC & DIFF NEUTROPHIL S [#/VOLUME] IN BLOOD BY AUTOMATED COUNT 4.06 10*3/uL 2.0 - 7.7 10/08 Specimen Type: BLOOD Comment: Automated Differentia l Performed Ordering Provider: ANKUSH BOWMAN Report Released Date/Time: Sep 24, 2022 01:55 PM Reporting Lab: [facility] [address] Performing Lab: [facility] [address] [place] [facility] CBC & DIFF EOSINOPHIL S [#/VOLUME] IN BLOOD BY AUTOMATED COUNT 0.16 10*3/uL 0 - 0.5 10/08 Specimen Type: BLOOD Comment: Automated Differentia l Performed Ordering Provider: ANKUSH BOWMAN Report Released Date/Time: Sep 24, 2022 01:55 PM Reporting Lab: [facility] [address] Performing Lab: [facility] [address] [place] [facility] CBC & DIFF BASOPHILS [#/VOLUME] IN BLOOD BY AUTOMATED COUNT 0.03 10*3/uL 0 - 0.2 10/08 Specimen Type: BLOOD Comment: Automated Differentia l Performed Ordering Provider: ANKUSH BOWMAN Report Released Date/Time: Sep 24, 2022 01:55 PM Reporting Lab: [facility] [address] Performing Lab: [facility] [address] [place] [facility] CBC & DIFF IG(META,MY MALACHI,PRO) 0.3 10/08 Specimen Type: BLOOD Comment: Automated Differentia l Performed Ordering Provider: ANKUSH BOWMAN Report Released Date/Time: Sep 24, 2022 01:55 PM Reporting Lab: [facility] [address] Performing Lab: [facility] [address] [place] [facility] CBC & DIFF IMMATURE GRANULOCYT ES [PRESENCE] IN BLOOD BY AUTOMATED COUNT 0.02 10*3/uL 0 - 0.1 10/08 Specimen Type: BLOOD Comment: Automated Differentia l Performed Ordering Provider: ANKUSH BOWMAN Report Released Date/Time: Sep 24, 2022 01:55 PM Reporting Lab: [facility] [address] Performing Lab: [facility] [address] [place] [facility] COMPREHE NSIVE METABOLI C PANEL+MG CREATININE [MASS/VOLU ME] IN SERUM OR PLASMA 0.7 mg/dL 0.7 - 1.2 10/08 Specimen Type: PLASMA No comment entered. Ordering Provider: ANKUSH BOWMAN Report Released Date/Time: Sep 24, 2022 01:55 PM Reporting Lab: [facility] [address] Performing Lab: [facility] [address] [place] [facility] COMPREHE NSIVE METABOLI C PANEL+MG UREA NITROGEN [MASS/VOLU ME] IN SERUM OR PLASMA 16 mg/dL 8 - 26 10/08 Specimen Type: PLASMA No comment entered. Ordering Provider: ANKUSH BOWMAN Report Released Date/Time: Sep 24, 2022 01:55 PM Reporting Lab: [facility] [address] Performing Lab: [facility] [address] [place] [facility] COMPREHE NSIVE METABOLI C PANEL+MG GLUCOSE [MASS/VOLU ME] IN SERUM OR PLASMA 94 mg/dL 70 - 100 10/08 Specimen Type: PLASMA No comment entered. Ordering Provider: ANKUSH BOWMAN Report Released Date/Time: Sep 24, 2022 01:55 PM Reporting Lab: [facility] [address] Performing Lab: [facility] [address] [place] [facility] COMPREHE NSIVE METABOLI C PANEL+MG SODIUM [MOLES/VOL UME] IN SERUM OR PLASMA 138 mmol/L 136 - 145 10/08 Specimen Type: PLASMA No comment entered. Ordering Provider: ANKUSH BOWMAN Report Released Date/Time: Sep 24, 2022 01:55 PM Reporting Lab: [facility] [address] Performing Lab: [facility] [address] [place] [facility] COMPREHE NSIVE METABOLI C PANEL+MG POTASSIUM [MOLES/VOL UME] IN SERUM OR PLASMA 3.9 mmol/L 3.5 - 5.1 10/08 Specimen Type: PLASMA No comment entered. Ordering Provider: ANKUSH BOWMAN Report Released Date/Time: Sep 24, 2022 01:55 PM Reporting Lab: [facility] [address] Performing Lab: [facility] [address] [place] [facility] COMPREHE NSIVE METABOLI C PANEL+MG CHLORIDE [MOLES/VOL UME] IN SERUM OR PLASMA 101 mmol/L 98 - 107 10/08 Specimen Type: PLASMA No comment entered. Ordering Provider: ANKUSH BOWMAN Report Released Date/Time: Sep 24, 2022 01:55 PM Reporting Lab: [facility] [address] Performing Lab: [facility] [address] [place] [facility] COMPREHE NSIVE METABOLI C PANEL+MG CARBON DIOXIDE, TOTAL [MOLES/VOL UME] IN SERUM OR PLASMA 28 mmol/L 22 - 29 10/08 Specimen Type: PLASMA No comment entered. Ordering Provider: ANKUSH BOWMAN Report Released Date/Time: Sep 24, 2022 01:55 PM Reporting Lab: [facility] [address] Performing Lab: [facility] [address] [place] [facility] COMPREHE NSIVE METABOLI C PANEL+MG CALCIUM [MASS/VOLU ME] IN SERUM OR PLASMA 9.7 mg/dL 8.4 - 10.2 10/08 Specimen Type: PLASMA No comment entered. Ordering Provider: ANKUSH BOWMAN Report Released Date/Time: Sep 24, 2022 01:55 PM Reporting Lab: [facility] [address] Performing Lab: [facility] [address] [place] [facility] COMPREHE NSIVE METABOLI C PANEL+MG PROTEIN [MASS/VOLU ME] IN SERUM OR PLASMA 7.6 g/dL 6.0 - 8.3 10/08 Specimen Type: PLASMA No comment entered. Ordering Provider: ANKUSH BOWMAN Report Released Date/Time: Sep 24, 2022 01:55 PM Reporting Lab: [facility] [address] Performing Lab: [facility] [address] [place] [facility] COMPREHE NSIVE METABOLI C PANEL+MG ALBUMIN [MASS/VOLU ME] IN SERUM OR PLASMA 4.2 g/dL 3.5 - 5.2 10/08 Specimen Type: PLASMA No comment entered. Ordering Provider: ANKUSH BOWMAN Report Released Date/Time: Sep 24, 2022 01:55 PM Reporting Lab: [facility] [address] Performing Lab: [facility] [address] [place] [facility] COMPREHE NSIVE METABOLI C PANEL+MG BILIRUBIN. TOTAL [MASS/VOLU ME] IN SERUM OR PLASMA 0.6 mg/dL 0.2 - 1.2 10/08 Specimen Type: PLASMA No comment entered. Ordering Provider: ANKUSH BOWMAN Report Released Date/Time: Sep 24, 2022 01:55 PM Reporting Lab: [facility] [address] Performing Lab: [facility] [address] [place] [facility] COMPREHE NSIVE METABOLI C PANEL+MG MAGNESIUM [MASS/VOLU ME] IN SERUM OR PLASMA 2.1 mg/dL 1.6 - 2.6 10/08 Specimen Type: PLASMA No comment entered. Ordering Provider: ANKUSH BOWMAN Report Released Date/Time: Sep 24, 2022 01:55 PM Reporting Lab: [facility] [address] Performing Lab: [facility] [address] [place] [facility] COMPREHE NSIVE METABOLI C PANEL+MG ANION GAP IN SERUM OR PLASMA 9 mmol/L 5 - 15 10/08 Specimen Type: PLASMA No comment entered. Ordering Provider: ANKUSH BOWMAN Report Released Date/Time: Sep 24, 2022 01:55 PM Reporting Lab: [facility] [address] Performing Lab: [facility] [address] [place] [facility] COMPREHE NSIVE METABOLI C PANEL+MG ALKALINE PHOSPHATAS E [ENZYMATIC ACTIVITY/V OLUME] IN SERUM OR PLASMA 96 U/L 40 - 150 10/08 Specimen Type: PLASMA No comment entered. Ordering Provider: ANKUSH BOWMAN Report Released Date/Time: Sep 24, 2022 01:55 PM Reporting Lab: [facility] [address] Performing Lab: [facility] [address] [place] [facility] COMPREHE NSIVE METABOLI C PANEL+MG ALANINE AMINOTRANS FERASE [ENZYMATIC ACTIVITY/V OLUME] IN SERUM OR PLASMA 29 U/L <55 - 55 10/08 Specimen Type: PLASMA No comment entered. Ordering Provider: ANKUSH BOWMAN Report Released Date/Time: Sep 24, 2022 01:55 PM Reporting Lab: [facility] [address] Performing Lab: [facility] [address] [place] [facility] COMPREHE NSIVE METABOLI C PANEL+MG ASPARTATE AMINOTRANS FERASE [ENZYMATIC ACTIVITY/V OLUME] IN SERUM OR PLASMA 22 U/L <34 - 34 10/08 Specimen Type: PLASMA No comment entered. Ordering Provider: ANKUSH BOWMAN Report Released Date/Time: Sep 24, 2022 01:55 PM Reporting Lab: [facility] [address] Performing Lab: [facility] [address] [place] [facility] COMPREHE NSIVE METABOLI C PANEL+MG GLOMERULAR FILTRATION RATE/1.73 SQ M.PREDICTE D [VOLUME RATE/AREA] IN SERUM, PLASMA OR BLOOD BY CREATININE -BASED FORMULA (CKD-EPI) >90 60 10/08 Specimen Type: PLASMA No comment entered. Ordering Provider: ANKUSH BOWMAN Report Released Date/Time: Sep 24, 2022 01:55 PM Reporting Lab: [facility] [address] Performing Lab: [facility] [address] [place] [facility] CYSTATIN C WITH EGFR CYSTATIN C [MASS/VOLU ME] IN SERUM OR PLASMA 1.38 mg/L 0.51 - 1.05 11/28 /2022 H Specimen Type: PLASMA No comment entered. Ordering Provider: ANKUSH BOWMAN Report Released Date/Time: Sep 24, 2022 01:55 PM Reporting Lab: [facility] [address] Performing Lab: [facility] [address] [place] [facility] CYSTATIN C WITH EGFR CYSTATIN C AND GLOMERULAR FILTRATION RATE BY CYSTATIN-B ASED FORMULA PANEL - SERUM OR PLASMA 48 60 10/08 L Specimen Type: PLASMA No comment entered. Ordering Provider: ANKUSH BOWMAN Report Released Date/Time: Sep 24, 2022 01:55 PM Reporting Lab: [facility] [address] Performing Lab: [facility] [address] [place] [facility] VIT D 25-OH,TO ZAMZAM 25-HYDROXY VITAMIN D3 [MASS/VOLU ME] IN SERUM OR PLASMA 54 ng/mL 12 - 50 10/08 H Specimen Type: SERUM No comment entered. Ordering Provider: ANKUSH BOWMAN Report Released Date/Time: Sep 24, 2022 01:55 PM Reporting Lab: [facility] [address] Performing Lab: [facility] [address] [place] [facility] Encounters Combined list of: 1) Encounters from Department of Veterans Affairs facilities going back up to thelast 18 months. 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 Location Location Details Encounter Type Encounter Number Reason For Visit Attending Provider ADM Date DC Date Status Disposition Source [place] [facility] Outpatient Encounter [id number] HC PRO PHONE CALL 21-30 MIN [id number] Diagnos is: ICD-10- CM G82.20 Paraple mary kay, unspeci fied
Hever CASTRO 01/08 [facility] [place] [facility] Outpatient Encounter [id number] [facility] DIABETIC MANAGEMENT PROGRAM, [id number] Diagnos is: ICD-10- CM G82.20 Paraple mary kay, unspeci fied
TIGIST BASSETT 01/30 [facility] Outpatient Encounter [id number] [facility] MTMS BY PHARM ADDL 15 MIN [id number] Diagnos is: ICD-10- CM G82.20 Paraple mary kay, unspeci fied
MANPREET BARRETTEY N 02/05 [facility] OT EVAL LOW COMPLEX 30 MIN [id number] Diagnos is: ICD-10- CM Z73.6 Limitat ion of activit ies due to disabil ity<br/ > Bryn PARDO 02/05 [facility] IS [facility] OFF/OP EST MAY X REQ PHY/QHP [id number] Diagnos is: ICD-10- CM G82.20 Paraple mary kay, unspeci fied
JOSUÉ ZAMORA J 02/05 [facility] PSYCH DIAGNOSTIC EVALUATION [id number] Diagnos is: ICD-10- CM F32.A Depress ion, unspeci fied
BINU GAMEZ 02/05 [facility] IS [facility] OFFICE O/P EST MOD 30-39 MIN [id number] Diagnos is: ICD-10- CM G82.20 Paraple mary kay, unspeci fied
ME LOGAN BOWMAN 02/05 [facility] IS [facility] PSYCH DIAGNOSTIC EVALUATION [id number] Diagnos is: ICD-10- CM G82.20 Paraple mary kay, unspeci fied
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
VIOLA YOON 02/08 [facility] IS [facility] OFFICE O/P EST HI 40-54 MIN [id number] Diagnos is: ICD-10- CM G82.20 Paraple mary kay, unspeci fied
ME LOGAN BOWMAN 02/13 [facility] WHEELCHAIR MNGMENT TRAINING [phone] Diagnos is: ICD-10- CM Z73.6 Limitat ion of activit ies due to disabil ity<br/ > BOUSLOG,RY AN P 02/13 [facility] Outpatient Encounter [id number] 02/19 [facility] HC PRO PHONE CALL 11-20 MIN [phone] Diagnos is: ICD-10- CM Z73.6 Limitat ion of activit ies due to disabil ity<br/ > BOUSLOG,RY AN P 04/23 [facility] Outpatient Encounter [id number] 04/24 [facility] [facility] Outpatient Encounter [id number] 05/24 [facility] IS [facility] OFF/OP EST MAY X REQ PHY/QHP [id number] Diagnos is: ICD-10- CM G82.20 Paraple mary kay, unspeci fied
VIOLA YOON 05/28 [facility] WHEELCHAIR MNGMENT TRAINING [id number] Diagnos is: ICD-10- CM Z73.6 Limitat ion of activit ies due to disabil ity<br/ > BOUSLOG,RY AN P 06/10 [facility] Outpatient Encounter [id number] 10/28 [facility] Outpatient Encounter [id number] 11/20 [facility] Outpatient Encounter [id number] 05/12 [facility] Social History Combined list of available smoking, tobacco, and other social history from 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 Social History Type Response Date Comment [facility] e Tobacco smoking status [facility] NEVER USED 05/28/20 22 SADAF TREVINO [facility] This section is an empty social history section. [facility] Plan of Care List of future care activities from Department 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 Additional future care activities may be listed in the Assessment and Plan section. Date/Time Care Activity Care Activity Detail Facili ty 07/30/2024 AMBULATORY - REHAB MEDICINE AMBULATORY - REHAB MEDICINE [facility] 05/12/2024 Consult Order SCI/D WHEELCHAIR SEATING/POSITIONING OUTPT Cons Instructor Warper's Choice [facility] Advance Directives List of completed, amended, or rescinded Advance Directives on record at Department of 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 An actual copy of the Directive is not included. Date Advance Directive Provider Source 02/05/2023 ADVANCE DIRECTIVE DISCUSSION GUSTAVO ABAD [facility]
--- OUTSIDE RECORDS SUMMARY | 2024-07-09 13:36 | XMS_ITS ---
Author Organization [facility] Address [address] [address] Care Team Providers Care Energy Economist Name Role Phone Franklin Squires MD [...] documented for this patient in [facility]. Treatments may have been administered in another system. Resolved Problems Problem Noted Date Diagnosed Date Resolved Date Gait abnormality 01/17/2012 02/09/2015 Back pain 01/17/2012 02/09/2015 Paraplegia 04/04/2011 02/09/2015 Osteoporosis 03/06/2011 02/09/2015 Urinary tract infection 12/24/200603/11
--- OUTSIDE RECORDS SUMMARY | 2024-07-09 13:36 | XMS_ITS | Encounter Summary ---
Author Organization [facility] Address [address] [address] Care Team Providers Care Academic Coordinator Name Role Phone Franklin Squires MD Primary Care Provider [phone] Encounter Details Date Type Department Care Team (Late st Contact Info) Description 01/06/2016 Correspondence [facility] Radiology [address] [place] [address] Radiology, Provider MRI SAFETY SHEET AND COMPATIBILITY [...] filedocumented in this encounter Care Teams Academic Coordinator Relationship Specialty Start Date End Date Franklin Squires MD [address] [place], [place] [address] [address] PCP - General Family Practice 03/08/16 documented as of this encounter
--- OUTSIDE RECORDS SUMMARY | 2024-07-09 13:36 | XMS_ITS | Encounter Summary ---
Author Organization [facility] Address [address] [address] Care Team Providers Care Plug And Mold Finisher Name Role Phone Franklin Squires MD Primary Care Provider Encounter Details Date Type Department Care Team (Late st Contact Info) Description 02/09/2016 Correspondence [facility] 401 NeuroSurgery 401 [facility]. [place], [place] [id number] Jodi Aguila PA-C [address] [place] [address] PATIENT LIFT PRESCRIPTION Social History Tobacco Use [...] on filedocumented in this encounter Care Teams Plug And Mold Finisher Relationship Specialty Start Date End Date Franklin Squires MD 100 [facility] [place] [id number] PCP - General Family Practice 03/08/16 documented as of this encounter
--- OUTSIDE RECORDS SUMMARY | 2024-07-09 13:37 | XMS_ITS | Encounter Summary ---
Author Organization [facility] Address [address] [address] Care Team Providers Care Pharmaceutical Worker Name Role Phone Franklin Squires MD Primary Care Provider [phone] Encounter Details Date Type Department Care Team (Late st Contact Info) Description 12/16/[address] 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
--- OUTSIDE RECORDS SUMMARY | 2024-07-09 13:37 | XMS_ITS | Encounter Summary ---
Author Organization [facility] Address [address], [place] [address] Care Team Providers Care General Helper Name Role Phone Franklin Squires MD Primary Care Provider [phone] Encounter Details Date Type Department Care Team [...] filedocumented in this encounter Care Teams General Helper Relationship Specialty Start Date End Date Franklin Squires MD 100 [facility] [address] PCP - General Family Practice 03/08/16 documented as of this encounter
--- OUTSIDE RECORDS SUMMARY | 2024-07-09 13:37 | XMS_ITS | Encounter Summary ---
Author Organization [facility] Address [address] [address] Care Team Providers Care Remote Inpatient Coder Name Role Phone Franklin Squires MD Primary Care Provider Encounter Details Date Type Department Care Team (Late st Contact Info) Description 04/24/[address] [facility] Radiology [address] [place] [address] Radiology, Provider MRI SAFETY SHEET AND COMPATIBILITY [...] on filedocumented in this encounter Care Teams Remote Inpatient Coder Relationship Specialty Start Date End Date Franklin Squires MD 100 [facility] [place] [address] PCP - General Family Practice 03/08/16 documented as of this encounter
--- OUTSIDE RECORDS SUMMARY | 2024-07-09 13:37 | XMS_ITS | Encounter Summary ---
Author Organization [facility] [address], [place] [address] Care Team Providers Care Supervisor Forming Department Name Role Phone Franklin Squires MD Primary Care Provider [phone] Encounter Details Date Type Department Care Team (Late st Contact Info) Description 10/26/2013 Correspondence [facility] Physical Therapy [address] [place] [address] Trudi Raymundo, PT [address] [place] [address] LETTER OF MEDICAL NECESSITY Social History Tobacco [...] Raymundo, PT - 10/26/2013 12:00 AM CST T ROOM ATTENDANT documented in this encounter Plan of Treatment Not on file documented as of this encounter Visit Diagnoses Not on filedocumented in this encounter Care Teams Supervisor Forming Department Relationship Specialty Start Date End Date Franklin Squires MD 100 [facility] [address] PCP - General Family Practice 03/08/16 documented as of this encounter
--- OUTSIDE RECORDS SUMMARY | 2024-07-09 13:37 | XMS_ITS | Encounter Summary ---
Author Organization [facility] Address [address], [place] [address] Care Team Providers Care Solutions Consultant Name Role Phone Franklin Squires MD Primary Care Provider [phone] Encounter Details Date Type Department Care Team (Late st Contact Info) Description 09/07/2014 Correspondence [facility] Radiology [address] [place] [address] Radiology, Provider MRI SAFETY SHEET AND COMPATIBILITY [...] on filedocumented in this encounter Care Teams Solutions Consultant Relationship Specialty Start Date End Date Franklin Squires MD [address] [place], [place] [address]LES [place] [address] PCP - General Family Practice 03/08/16 documented as of this encounter
--- OUTSIDE RECORDS SUMMARY | 2024-07-09 13:37 | XMS_ITS | Encounter Summary ---
Author Organization [facility] Address [address] [address] Care Team Providers Care Line Crew Supervisor Name Role Phone Franklin Squires MD Primary Care Provider [phone] Encounter Details Date Type Department Care Team (Late st Contact Info) Description 05/04/2014 Correspondence [facility] 401 Physical Medicine 401 [place] [address] May Randle MD [address] [place] [address] LETTER OF MEDICAL NECESSITY FOR A WHEELCHAIR [...] filedocumented in this encounter Care Teams Line Crew Supervisor Relationship Specialty Start Date End Date Franklin Squires MD 100 [facility] [place] [address] PCP - General Family Practice 03/08/16 documented as of this encounter
--- OUTSIDE RECORDS SUMMARY | 2024-07-09 13:37 | XMS_ITS | Encounter Summary ---
Author Organization [facility] Address [address] [address] Care Team Providers Care Manufacturing Leader Name Role Phone Franklin Squires MD Primary Care Provider Encounter Details Date Type Department Care Team (Late st Contact Info) Description 06/07/2015 Correspondence [facility] Radiology [address] [place] [address] Radiology, Provider MRI SAFETY SHEET AND COMPATIBILITY [...] filedocumented in this encounter Care Teams Manufacturing Leader Relationship Specialty Start Date End Date Franklin Squires MD [address] [place], [place] [address] [address] PCP - General Family Practice 03/08/16 documented as of this encounter
--- OUTSIDE RECORDS SUMMARY | 2024-07-09 13:37 | XMS_ITS | Encounter Summary ---
Author Organization [facility] Address [address], [place] [address] Care Team Providers Care Desulfurizer Hand Name Role Phone Franklin Squires MD Primary Care Provider [phone] Encounter Details Date Type Department Care Team (Late st Contact Info) Description 09/17/2013 Correspondence External to External, [place] [address] EMPOWERMENT RULES Social History Tobacco Use Types [...] External, Provider - 09/17/2013 12:00 AM CST SMAN documented in this encounter Plan of Treatment Not on file documented as of this encounter Visit Diagnoses Not on filedocumented in this encounter Care Teams Desulfurizer Hand Relationship Specialty Start Date End Date Franklin Squires MD [address] [place] [address] [place] [address] PCP - General Family Practice 03/08/16 documented as of this encounter
--- OUTSIDE RECORDS SUMMARY | 2024-07-09 13:37 | XMS_ITS | Encounter Summary ---
Author Organization [facility] Address [address] [address] Care Team Providers Care Soft Sugar Operator Head Name Role Phone Franklin Squires MD [...] on filedocumented in this encounter Care Teams Soft Sugar Operator Head Relationship Specialty Start Date End Date Franklin Squries MD 100 [facility] [place] [address] PCP - General Family Practice 03/08/16 documented as of this encounter
--- OUTSIDE RECORDS SUMMARY | 2024-07-09 13:37 | XMS_ITS | Encounter Summary ---
Author Organization [facility] Address [address] [address] Care Team Providers Care Cushion Mat Maker Name Role Phone Franklin Squires MD Primary Care Provider [phone] Encounter Details Date Type Department Care Team (Late st Contact Info) Description 03/11/2014 Correspondence [facility] 401 Interventional Pain Management 401 [facility] [place] [address] Zelalem Cohen, DO [address] [place] [address] EMPI Social History Tobacco Use Types Packs/Day [...] on filedocumented in this encounter Care Teams Cushion Mat Maker Relationship Specialty Start Date End Date Franklin Squires MD 100 [facility] [place] [address] PCP - General Family Practice 03/08/16 documented as of this encounter
--- OUTSIDE RECORDS SUMMARY | 2024-07-09 13:37 | XMS_ITS | Encounter Summary ---
Author Organization [facility] Address [address] [address] Care Team Providers Care Surgical Instrument Technician Name Role Phone Franklin Squires MD Primary Care Provider Encounter Details Date Type Department Care Team (Late st Contact Info) Description 04/20/[address] [address] Radiology, Provider MRI SAFETY SHEET AND COMPATIBILITY [...] in this encounter Care Teams Surgical Instrument Technician Relationship Specialty Start Date End Date Franklin Squires MD 100 [facility] [place] [address] PCP - General Family Practice 03/08/16 documented as of this encounter
--- OUTSIDE RECORDS SUMMARY | 2024-07-09 13:37 | XMS_ITS | Encounter Summary ---
Author Organization [facility] Address [address] [address] Care Team Providers Care Fan Mail Clerk Name Role Phone Franklin Squires MD Primary Care Provider [phone] Encounter Details Date Type Department Care Team (Late st Contact Info) Description 08/22/2014 Outside Hospital External to [facility] HOSP-D/C SUMMARY Social History Tobacco Use Types [...] on filedocumented in this encounter Care Teams Fan Mail Clerk Relationship Specialty Start Date End Date Franklin Squires MD 100 [facility] [place] [address] PCP - General Family Practice 03/08/16 documented as of this encounter
--- OUTSIDE RECORDS SUMMARY | 2024-07-09 13:37 | XMS_ITS | Encounter Summary ---
Author Organization [facility] Address [address] [address] Care Team Providers Care Outpatient Interviewing Clerk Name Role Phone Franklin Squires MD Primary Care Provider Encounter Details Date Type Department Care Team (Late st Contact Info) Description 07/28/2014 Outside Hospital External to External, Provider No address [address] ER VISIT/TRANSFER Social History Tobacco Use [...] on filedocumented in this encounter Care Teams Outpatient Interviewing Clerk Relationship Specialty Start Date End Date Franklin Squires MD 100 [facility] [place] [address] PCP - General Family Practice 03/08/16 documented as of this encounter
--- OUTSIDE RECORDS SUMMARY | 2024-07-09 13:37 | XMS_ITS | Encounter Summary ---
Author Organization [facility] Address [address] [address] Care Team Providers Care Client Relation Specialist Name Role Phone Franklin Squires MD Primary Care Provider [phone] Encounter Details Date Type Department Care Team (Late st Contact Info) Description 08/20/2014 Outside Hospital External to [facility] HOSP-ADMIT H/P Social History Tobacco [...] filedocumented in this encounter Care Teams Client Relation Specialist Relationship Specialty Start Date End Date Franklin Squires MD 100 [facility] [place] [address] PCP - General Family Practice 03/08/16 documented as of this encounter
--- OUTSIDE RECORDS SUMMARY | 2024-07-09 13:37 | XMS_ITS | Encounter Summary ---
Author Organization [facility] [address], [place] [address] Care Team Providers Care Data Librarian Name Role Phone Franklin Squires MD Primary Care Provider Encounter Details Date Type Department Care Team (Late st Contact Info) Description 02/05/2014 Correspondence [facility] Physical Therapy [address] [place] [address] Trudi Raymundo, PT [address] [place] [address] LETTER OF MEDICAL NECESSITY FOR A WHEELCHAIR [...] filedocumented in this encounter Care Teams Data Librarian Relationship Specialty Start Date End Date Franklin Squires MD 100 [facility] [place] [address] PCP - General Family Practice 03/08/16 documented as of this encounter
--- OUTSIDE RECORDS SUMMARY | 2024-07-09 13:37 | XMS_ITS | Encounter Summary ---
Author Organization [facility] Address [address] [address] Care Team Providers Care Demand Planner Name Role Phone Franklin Squires MD Primary Care Provider Encounter Details Date Type Department Care Team (Latest Contact Info) Description 06/04/2014 Correspondence [facility] 401 Interventional Pain Management 401 [facility] [place] [address] Zelalem Cohen, DO [address] [place] [address] MEDICAID PT INFORMATION EMPI RECOVERY Social History [...] on filedocumented in this encounter Care Teams Demand Planner Relationship Specialty Start Date End Date Franklin Squires MD 100 [facility] [place] [address] PCP - General Family Practice 03/08/16 documented as of this encounter
--- OUTSIDE RECORDS SUMMARY | 2024-07-09 13:37 | XMS_ITS | Encounter Summary ---
Author Organization [facility] Address [address] [address] Care Team Providers Care Calciner Feeder Name Role Phone Franklin Squires MD Primary Care Provider [phone] Encounter Details Date Type Department Care Team (Late st Contact Info) Description 11/13/2012 Correspondence [facility] Radiology [address] [place] [address] Radiology, Provider MRI SAFETY SHEET AND COMPATIBILITY [...] PROVIDER - 11/13/2012 12:00 AM CST E COMPANION documented in this encounter Plan of Treatment Not on file documented as of this encounter Visit Diagnoses Not on filedocumented in this encounter Care Teams Calciner Feeder Relationship Specialty Start Date End Date Franklin Squires MD 100 [facility] [place] [address] PCP - General Family Practice 03/08/16 documented as of this encounter
--- OUTSIDE RECORDS SUMMARY | 2024-07-09 13:37 | XMS_ITS | Encounter Summary ---
Author Organization [facility] Address [address] [address] Care Team Providers Care Tattooer Name Role Phone Franklin Squires MD Primary Care Provider [phone] Encounter Details Date Type Department Care Team (Late st Contact Info) Description 07/23/2013 Correspondence [facility] 401 Interventional Pain Management 401 [facility] [place] [address] Zelalem Cohen DO [address] [place] [address] [employer] Social History Tobacco Use Types [...] Cohen MD - 07/23/2013 12:00 AM CDT UTER DRAFTER documented in this encounter Plan of Treatment Not on file documented as of this encounter Visit Diagnoses Not on filedocumented in this encounter Care Teams Tattooer Relationship Specialty Start Date End Date Franklin Squires MD 100 [facility] [place] [address] PCP - General Family Practice 03/08/16 documented as of this encounter
--- OUTSIDE RECORDS SUMMARY | 2024-07-09 13:37 | XMS_ITS | Encounter Summary ---
Author Organization [facility] [address], [place] [address] Care Team Providers Care Management Nurse Rn Name Role Phone Franklin Squires MD Primary Care Provider Encounter Details Date Type Department Care Team (Late st Contact Info) Description 11/10/2014 Correspondence [facility] Physical Therapy [address] [place] [address] Trudi Raymundo, PT [address] [place] [address] LETTER OF MEDICAL NECESSITY Social History Tobacco [...] on filedocumented in this encounter Care Teams Management Nurse Rn Relationship Specialty Start Date End Date Franklin Squires MD 100 [facility] [place] [address] PCP - General Family Practice 03/08/16 documented as of this encounter
--- OUTSIDE RECORDS SUMMARY | 2024-07-09 13:37 | XMS_ITS | Encounter Summary ---
Author Organization [facility] Address [address] [address] Care Team Providers Care Stage Settings Painter Name Role Phone Franklin Squires MD [...] on filedocumented in this encounter Care Teams Stage Settings Painter Relationship Specialty Start Date End Date Franklin Squires MD 100 [facility] [place] [address] PCP - General Family Practice 03/08/16 documented as of this encounter
--- OUTSIDE RECORDS SUMMARY | 2024-07-09 13:37 | XMS_ITS | Encounter Summary ---
Author Organization [facility] Address [address] [address] Care Team Providers Care Nuclear Operator Name Role Phone Franklin Squires MD Primary Care Provider [phone] Encounter Details Date Type Department Care Team (Late st Contact Info) Description 08/20/[address] Outside [address] External to [facility]-H/P Social History Tobacco Use [...] filedocumented in this encounter Care Teams Nuclear Operator Relationship Specialty Start Date End Date Franklin Squires MD [address] [place], [place] [address] [address] PCP - General Family Practice 03/08/16 documented as of this encounter
--- OUTSIDE RECORDS SUMMARY | 2024-07-09 13:37 | XMS_ITS | Encounter Summary ---
Author Organization [facility] Address [address] [address] Care Team Providers Care Job Change Crew Member Name Role Phone Franklin Squires MD Primary Care Provider Encounter Details Date Type Department Care Team (Late st Contact Info) Description 12/14/2014 Correspondence [facility] 401 Physical Medicine 401 [place] [address] May Randle MD [address] [place] [address] DETAILED PRODUCT DESCRIPTION Social History Tobacco Use [...] filedocumented in this encounter Care Teams Job Change Crew Member Relationship Specialty Start Date End Date Franklin Squires MD 100 [facility] [place] [address] PCP - General Family Practice 03/08/16 documented as of this encounter
--- OUTSIDE RECORDS SUMMARY | 2024-07-09 13:37 | XMS_ITS | Encounter Summary ---
Author Organization [facility] Address [address], [place] [address] Care Team Providers Care Aviculturist Name Role Phone Franklin Squires MD Primary Care Provider Encounter Details Date Type Department Care Team (Late st Contact Info) Description 12/16/2014 Correspondence External to External, [place] [address] MEDICARE PLAN OF CARE RECERT Social History [...] on filedocumented in this encounter Care Teams Aviculturist Relationship Specialty Start Date End Date Franklin Squires MD [address] [place] [address] [facility] [place] [address] PCP - General Family Practice 03/08/16 documented as of this encounter
--- OUTSIDE RECORDS SUMMARY | 2024-07-09 13:37 | XMS_ITS | Encounter Summary ---
Author Organization [facility] Address [address] [address] Care Team Providers Care Reed Polisher Name Role Phone Franklin Squires MD Primary Care Provider [phone] Encounter Details Date Type Department Care Team (Late st Contact Info) Description 06/11/2014 Correspondence [facility]ty [facility] 401 Physical Medicine 401 [facility] [place] [address] May Randle MD [address] [place] [address] [facility] Social History Tobacco Use Types Packs/Day [...] on filedocumented in this encounter Care Teams Reed Polisher Relationship Specialty Start Date End Date Franklin Squires MD 100 [facility] [place] [address] PCP - General Family Practice 03/08/16 documented as of this encounter
--- NOTE | 2024-07-09 14:00 | CRLHL7_ITS ---
For Patients: As a result of the Century Cures Act, medical imaging exams and procedure reports are released immediately into your electronic medical record. You may view this report before your referring provider. If you have questions, please contact your health care provider. INDICATION: Nonhealing pressure decubitus ulcer. COMPARISON: 23 October 2023. TECHNIQUE: 102 mL Isovue-370 IV contrast. FINDINGS: Strandy linear scar or minor atelectasis in the lung bases. Mild low attenuation of liver parenchyma for steatosis. Absent gallbladder. Symmetric moderate gynecomastia incompletely included in the field of view. Slightly elevated right hemidiaphragm. No hiatus hernia. Normal enhancement of kidneys. 4 cm benign cyst lower pole left kidney. A normal-caliber aorta. Scattered mild atherosclerotic calcifications. Large left lower abdominal parastomal hernia containing small bowel with the exiting colostomy. No obstruction. No fluid. Fat filled small umbilical hernia. Suprapubic catheter. No fluid in the peritoneal cavity. Irregular thick enhancing soft tissue presumed granulation tissue and scarring surrounding a small amount of fluid at the pressure lesions without significant ulcer of the bilateral greater trochanters. Some skin dimpling on the right. These are progressed moderately from comparison. No osteomyelitis change. Decubitus ulcer to bone at the bilateral ischial tuberosities. Hazy moderately dense sclerosis in the left ischial tuberosity with indistinct posterior cortical margin is new from comparison and consistent with osteomyelitis. This does not extend definitively to the acetabulum nor the symphysis pubis. No bony changes at the right ischial tuberosity. IMPRESSION: 1. Acute on chronic appearing osteomyelitis in the left ischial tuberosity is new. 2. Increased decubitus pressure lesions without significant ulcer at the bilateral greater trochanters. Please note that all CT scans at this facility use dose modulation, iterative reconstruction, and/or weight-based dosing when appropriate to reduce radiation dose to as low as reasonably achievable. Dictated by Marquis Hamilton MD @ 07/10/2024 10:10:03 AM (Electronically Signed)
== END 2024-07-09 13:34 | disposition home or self-care (01) ==
LOC: CT 13:34
PROVIDERS: PCP Family Medicine; Visit Provider Nurse Practitioner Family
DX: L89.324 Pressure ulcer of left buttock, stage 4 (principal); M86.8X8 Other osteomyelitis, other site
CPT/HCPCS: 72193; Q9967

== ENCOUNTER 2024-07-14 12:40 | Outpatient (CLI) | payer MEDICARE, OTHER, SELFPAY ==
--- OUTSIDE RECORDS SUMMARY | 2024-07-14 12:43 | XMS_ITS | Continuity of Care Document ---
Author Name [facility] Organization [facility] Care Team Providers Care Cardiology Consultant Name Role Phone [facility] Unavailable Unavailable Problems Combined list of problems from 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 It does not include entries that were removed or entered in error. Problem Status Onset Date Problem Type Date of Resolution Comments Source Abnormal liver function Active Condition [facility] Anemia (SCT 968908986) Active Condition [facility] Anxiety ([facility] 86171843) Active Condition [facility] Autonomic dysreflexia Active Condition [facility] Chronic Pain Syndrome ([facility] 858490408) Active Condition [facility] Colostomy present Active Condition [facility] Constipation ([facility] 05968245) Active Condition [facility] Continuous opioid dependence Active Condition [facility] COPD - Chronic Obstructive Pulmonary Disease ([facility] 65122564) Active Condition [facility] Dementia Active Condition [facility] Depression ([facility] 11667485) Active Condition [facility] Diabetes Mellitus Type 2 ([facility] 27014720) Active Condition [facility] Ependymoma of spinal cord Active Condition [facility] Hearing Loss ([facility] 53421502) Active Condition [facility] History of Deep Vein Thrombosis ([facility] 221553297) Active Condition [facility] History of pressure injury Active Condition [facility] HTN - Hypertension ([facility] 85616387) Active Condition [facility] Hyperlipidemia ([facility] 63308099) Active Condition [facility] Hyponatremia Active Condition [facility] Long-term current use of anticoagulant Active Condition [facility] Neurogenic Bladder ([facility] 370916835) Active Condition [facility] Neurogenic bowel Active Condition [facility] Osteoporosis ([facility] 66194102) Active Condition [facility] Paraplegia Active Condition [facility] Spasticity Active Condition [facility] Suprapubic urinary catheter in situ Active Condition [facility] Supraventricular tachycardia Active Condition [facility] Tinnitus ([facility] 21908313) Active Condition [facility] Vitamin D Deficiency ([facility] 5407077) Active Condition [facility] Diagnosis: ICD-10-CM Z73.6 Limitation of activities due to disability Active Diagnosis [facility] Diagnosis: ICD-10-CM G82.20 Paraplegia, unspecified Active Diagnosis [facility] Diagnosis: ICD-10-CM Z43.3 Encounter for attention to colostomy Active Diagnosis [facility] Diagnosis: ICD-10-CM Z71.3 Dietary counseling and surveillance Active Diagnosis [facility] Diagnosis: ICD-10-CM F32.A Depression, unspecified Active Diagnosis [facility] Medications Combined list of outpatient medications from Department of Defense and [facility] Affairs facilities.Medications provided include [...] ed by: PIPO BARRETT Document ed at: [facility] ORAL ACTIVE Jagdish BARRETT 2022 [facility] AMLODIPINE BESYLATE (AMLODIPINE BESYLATE), 5 MG, TABLET, ORAL, [employer] 1000 ea. BOTTLE Active [id number] 2023 90 Pharmac y Data Transac tion Service Facilit y AMLODIPINE BESYLATE (amlodipine besylate), 5 MG, TABLET, ORAL, [employer], 1000 ea. BOTTLE Active [id number] 2023 90 Pharmac y Data Transac tion Service Facilit y AMLODIPINE BESYLATE 2.5MG TAB AMLODIPI NE BESYLATE 2.5MG TAB Non-VA TAKE TWO TABLETS BY MOUTH EVERY MORNING Feb 05, 2023 [place] Document ed by: PIPO BARRETT Document ed at: [facility] ORAL ACTIVE Jagdish BARRETT 2022 [facility] AMOX TR-POTASSIU M CLAVULANATE (AMOXICILLI N/POTASSIUM CLAV), 875-125 MG, TABLET, ORAL, TEVA [place], 20 ea. BOTTLE Active [id number] 2022 14 Pharmac y Data Transac tion Service Facilit y AMOXICILLIN -CLAVULANAT E POTASS (amoxicilli n/potassium clavulanate ), 875-125 MG, TABLET, ORAL, [employer] [place],, 20 ea. BOTTLE Active [id number] 2023 20 Pharmac y Data Transac tion Service Facilit y AMOXICILLIN -CLAVULANAT E POTASS (amoxicilli n/potassium clavulanate ), 875-125 MG, TABLET, ORAL, [employer] [place],, 20 ea. BOTTLE Active [id number] 2023 56 Pharmac y Data Transac tion Service Facilit y ARIPIPRAZOL E (aripiprazo le), 2 MG, TABLET, ORAL, [employer] PHARMACE, 500 ea. BOTTLE Active [id number] 2023 180 Pharmac y Data Transac tion Service Facilit y ARIPIPRAZOL E (aripiprazo le), 2 MG, TABLET, ORAL, [employer] PHARMACE, 500 ea. BOTTLE Active [id number] 2023 180 Pharmac y Data Transac tion Service Facilit y ARIPIPRAZOL E TAB ARIPIPRA ZOLE TAB Non-VA TAKE 2MG BY MOUTH TWICE A DAY May 29, 2022 Non-VA Document ed by: SHANTAL HANSON Document ed at: [facility] ORAL ACTIVE Jey HANSON 2021 [facility] ATIVAN (LORAZEPAM) , 0.5 MG, TABLET, ORAL, VALEANT, 100 ea. BOTTLE Active [id number] 2023 120 Pharmac y Data Transac [...] BIOCON PHARMA I, 1000 ea. BOTTLE Active [id number] 2023 90 Pharmac y Data Transac tion Service Facilit y ATORVASTATI N CALCIUM (atorvastat in calcium), 40 MG, TABLET, ORAL, BIOCON PHARMA I, 1000 ea. BOTTLE Active [id number] 2023 90 Pharmac y Data Transac tion Service Facilit y BACLOFEN (baclofen), 20 MG, TABLET, ORAL, MARLEX PHARM., 1000 ea. BOTTLE Active [id number] 2023 540 Pharmac y Data Transac tion Service Facilit y BACLOFEN (baclofen), 20 MG, TABLET, ORAL, [employer]LEX PHARM., 1000 ea. BOTTLE Active [id number] 2023 540 Pharmac y Data Transac tion Service Facilit y BACLOFEN 20MG TAB BACLOFEN 20MG TAB Non-VA TAKE TWO TABLETS BY MOUTH THREE TIMES A DAY Feb 05, 2023 Non-VA Document ed by: PIPO BARRETT Document ed at: [facility] ORAL ACTIVE Jagdish BARRETT 2022 [facility] BUPROPION HCL 150MG 12HR TAB,SA BUPROPIO N HCL 150MG 12HR TAB,SA Non-VA TAKE ONE TABLET BY MOUTH TWICE A DAY May 29, 2022 Non-VA Document ed by: SHNATAL HANSON Document ed at: [facility] ORAL ACTIVE Jey HANSON 2021 [facility] BUPROPION HCL SR (bupropion HCl), 150 MG, TAB SR 12H, ORAL, PAVEL [employer]ARMACEU, 60 ea. BOTTLE Active [id number] 2023 180 Pharmac y Data Transac tion Service Facilit y BUPROPION HCL SR (bupropion HCl), 150 MG, TAB SR 12H, ORAL, PAVEL PHARMACEU, 60 ea. BOTTLE Active [id number] 2023 180 Pharmac y Data Transac [...] ORAL, AUROBINDO PHARM, 50 ea. BOTTLE Active [id number] 2023 70 Pharmac y Data Transac tion Service Facilit y DONEPEZIL HCL (DONEPEZIL HCL), 5 MG, TABLET, ORAL, [employer] 1000 ea. BOTTLE Active [id number] 2023 90 Pharmac y Data Transac tion Service Facilit y DONEPEZIL HCL (DONEPEZIL HCL), 5 MG, TABLET, ORAL, [employer] 1000 ea. BOTTLE Cancele d [id number] : 2023 0 Pharmac y Data Transac tion Service Facilit y DONEPEZIL HCL (DONEPEZIL HCL), 5 MG, TABLET, ORAL, [employer] 1000 ea. BOTTLE Active [id number] 2023 90 Pharmac y Data Transac tion Service Facilit y DONEPEZIL HCL 10MG TAB DONEPEZI L HCL 10MG TAB Non-VA TAKE ONE-HALF TABLET BY MOUTH EVERY DAY May 29, 2022 Non-VA Document ed by: SHANTAL HANSON Document ed at: [facility] ORAL ACTIVE Jey HANSON 2021 [facility] DULOXETINE HCL (duloxetine HCl), 60 MG, CAPSULE DR, ORAL, [employer] 1000 ea. BOTTLE Active [id number] 2023 180 Pharmac y Data Transac tion Service Facilit y DULOXETINE HCL (duloxetine HCl), 60 MG, CAPSULE DR, ORAL, [employer] 1000 ea. BOTTLE Active [id number] 2023 180 Pharmac y Data Transac tion Service Facilit y DULOXETINE HCL 30MG CAP,EC DULOXETI NE HCL 30MG CAP,EC Non-VA TAKE 2 CAPSULES BY MOUTH TWICE A DAY May 29, 2022 Non-VA Document ed by: SHANTAL HANSON Document ed at: [facility] ORAL ACTIVE Jey HANSON 2021 [facility] FAMOTIDINE (famotidine ), 20 MG, TABLET, ORAL, [employer]., 1000 ea. BOTTLE Active [id number] 2023 180 Pharmac y Data Transac tion Service Facilit y FAMOTIDINE 20MG TAB FAMOTIDI NE 20MG TAB Non-VA TAKE ONE TABLET BY MOUTH TWICE A DAY May 29, 2022 Non-VA Document ed by: SHANTAL HANSON Document ed at: [facility] ORAL ACTIVE Jey HANSON 2021 [facility] FUROSEMIDE (furosemide ), 40 MG, TABLET, ORAL, [facility], 1000 ea. BOTTLE Active [id number] 2023 180 Pharmac y Data Transac tion Service Facilit y FUROSEMIDE 40MG TAB FUROSEMI DE 40MG TAB Non-VA TAKE ONE TABLET BY MOUTH TWICE A DAY May 29, 2022 Non-VA Document ed by: SHANTAL HANSON Document ed at: [facility] ORAL ACTIVE Jey HANSON 2021 [facility] GABAPENTIN (gabapentin ), 400 MG, CAPSULE, ORAL, [employer] 500 ea. BOTTLE Active [id number] 2023 270 Pharmac y Data Transac tion Service Facilit y GABAPENTIN (gabapentin ), 400 MG, CAPSULE, ORAL, SCIEGEN PHARMAC, 500 ea. BOTTLE Active [id number] 2023 270 Pharmac y Data Transac tion Service Facilit y GABAPENTIN (gabapentin ), 400 MG, CAPSULE, ORAL, XLCARE PHARMACE, 500 ea. BOTTLE Cancele d [id number] : 2023 0 Pharmac y Data Transac [...] ORAL, AUROBINDO PHARM, 500 ea. BOTTLE Active [id number] 2023 120 Pharmac y Data Transac tion Service Facilit y LORAZEPAM (lorazepam) , 0.5 MG, TABLET, ORAL, LEADING PHARMA, 1000 ea. BOTTLE Active [id number] 2023 120 Pharmac y Data Transac tion Service Facilit y LORAZEPAM (lorazepam) , 0.5 MG, TABLET, ORAL, LEADING PHARMA, 1000 ea. BOTTLE Active [id number] 2023 120 Pharmac y Data Transac tion Service Facilit y LORAZEPAM (lorazepam) , 0.5 MG, TABLET, ORAL, LEADING PHARMA, 1000 ea. BOTTLE Active [id number] 2023 120 Pharmac y Data Transac tion Service Facilit y LORAZEPAM (lorazepam) , 0.5 MG, TABLET, ORAL, LEADING PHARMA, 500 ea. BOTTLE Active [id number] 2023 120 Pharmac y Data Transac tion Service Facilit y LORAZEPAM 0.5MG TAB LORAZEPA M 0.5MG TAB Non-VA TAKE ONE TABLET BY MOUTH THREE TIMES A DAY AND TAKE TWO TABLETS BY MOUTH AT BEDTIME Feb 05, 2023 Non-VA Document ed by: PIPO BARRETT Document ed at: [facility] ORAL ACTIVE Jagdish BARRETT 2022 [facility] MILK OF MAGNESIA MILK OF [...] ed by: PIPO BARRETT Document ed at: [facility] NASAL ACTIVE Jagdish BARRETT 2022 [facility] OXYCODONE HCL (OXYCODONE HCL), 10 MG, TABLET, ORAL, [employer] 100 ea. BOTTLE Active [id number] 2023 120 Pharmac y Data Transac tion Service Facilit y OXYCODONE HCL (OXYCODONE HCL), 10 MG, TABLET, ORAL, [employer] 100 ea. BOTTLE Active [id number] 2023 120 Pharmac y Data Transac tion Service Facilit y OXYCODONE HCL (OXYCODONE HCL), 10 MG, TABLET, ORAL, [employer] 100 ea. BOTTLE Active [id number] 2023 120 Pharmac y Data Transac tion Service Facilit y OXYCODONE HCL (OXYCODONE HCL), 10 MG, TABLET, ORAL, [employer] 100 ea. BOTTLE Active [id number] 2023 120 Pharmac y Data Transac tion Service Facilit y OXYCODONE HCL (OXYCODONE HCL), 10 MG, TABLET, ORAL, [employer] 100 ea. BOTTLE Active [id number] 2023 120 Pharmac y Data Transac tion Service Facilit y OXYCODONE HCL (OXYCODONE HCL), 10 MG, TABLET, ORAL, [employer] 100 ea. BOTTLE Active [id number] 2023 120 Pharmac y Data Transac tion Service Facilit y OXYCODONE HCL (OXYCODONE HCL), 10 MG, TABLET, ORAL, [employer] 100 ea. BOTTLE Active [id number] 2022 120 Pharmac y Data Transac tion Service Facilit y OXYCODONE HCL 5MG TAB OXYCODON E HCL 5MG TAB Non-VA TAKE TWO TABLETS BY MOUTH FOUR TIMES A DAY Feb 05, 2023 Non-VA Document ed by: PIPO BARRETT Document ed at: [facility] Jagdish BARRETT 2022 [facility] POTASSIUM CHLORIDE (potassium chloride), 10 MEQ, TAB ER PRT, ORAL, X[employer] PHARMACE, 100 ea. BOTTLE Active [id number] 2023 180 Pharmac y Data Transac tion Service Facilit y POTASSIUM CHLORIDE (potassium chloride), 10 MEQ, TAB ER PRT, ORAL, [employer] PHARMACE, 100 ea. BOTTLE Active [id number] 2023 180 Pharmac y Data Transac tion Service Facilit y POTASSIUM CHLORIDE (potassium chloride), 20 MEQ, TAB ER PRT, ORAL, X[employer] PHARMACE, 100 ea. BOTTLE Active [id number] 2023 90 Pharmac y Data Transac [...] WHITLOCK&N/UNI LUIS, 30 g TUBE Cancele d [id number] : 2023 0 Pharmac y Data Transac tion Service Facilit y WARFARIN SODIUM (warfarin sodium), 5 MG, TABLET, ORAL, [employer] 1000 ea. BOTTLE Cancele d [id number] : 2022 0 Pharmac y Data Transac tion Service Facilit y WARFARIN SODIUM (WARFARIN SODIUM), 5 MG, TABLET, ORAL, [employer]EV[employer] [place], 1000 ea. BOTTLE Active [id number] 2023 25 Pharmac y Data Transac tion Service Facilit y WARFARIN SODIUM (WARFARIN SODIUM), 5 MG, TABLET, ORAL, [employer]EV[employer] [place], 1000 ea. BOTTLE Active [id number] 2023 12 Pharmac y Data Transac tion Service Facilit y WARFARIN SODIUM (WARFARIN SODIUM), 5 MG, TABLET, ORAL, [employer]EV[employer] [place], 1000 ea. BOTTLE Active [id number] 2023 40 Pharmac y Data Transac tion Service Facilit y WARFARIN SODIUM (WARFARIN SODIUM), 5 MG, TABLET, ORAL, [employer]EV[employer] [place], 1000 ea. BOTTLE Cancele d [id number] : 2022 0 Pharmac y Data Transac tion Service Facilit y WARFARIN SODIUM (warfarin sodium), 7.5 MG, TABLET, ORAL, [employer]EV[employer] [place], 100 ea. BOTTLE Active [id number] 2023 51 Pharmac y Data Transac tion Service Facilit y WARFARIN SODIUM (warfarin sodium), 7.5 MG, TABLET, ORAL, [employer]EV[employer] [place], 100 ea. BOTTLE Active [id number] 2023 78 Pharmac y Data Transac tion Service Facilit y WARFARIN TAB WARFARIN TAB Non-VA TAKE 5MG BY MOUTH SUN/THUR S AND TAKE 7.5MG BY MOUTH ALL OTHER DAYS Feb 05, 2023 Non-VA Document ed by: PIPO BARRETT Document ed at: [facility] ORAL ACTIVE Jagdish BARRETT 2022 [facility] Allergies, Adverse Reactions, Alerts Combined list of allergies from 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 It does not include entries that were removed or entered in error. Substance Category Reaction Severity Reaction type Status Date Reported Comments Source AMOXICILLIN Propensity to adverse reactions to drug (finding) Eruption active 2 [facility] METOLAZONE Propensity to adverse reactions to drug (finding) Itching active 2 [facility] MORPHINE Propensity to adverse reactions to drug (finding) Delirium active 2 [facility] PIPERACILLIN Propensity to adverse reactions to drug (finding) Eruption active 2 [facility] SULFA DRUGS Propensity to adverse reactions to drug (finding) Eruption active 2 [facility] TAZOBACTAM SODIUM Propensity to adverse reactions to drug (finding) Eruption active 2 [facility] Immunizations Combined list of available immunizations from the 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 Immunization Series Date Given Administered By Site Reaction Lot Number CVX Code Drug Chemicals Fermentation Operator Status Comments Source COVID-19 (Azendoo), MRNA, LNP-S, BIVALENT, PF, 30 MCG/0.3 ML DOSE 2021 300 complet ed [facility] INFLUENZA, ADJUVANTED, QUADRIVALENT, PF 2021 205 complet ed [facility] INFLUENZA, UNSPECIFIED FORMULATION 2021 88 complet ed 's recall [facility] TD (ADULT), 5 LF TETANUS TOXOID, PRESERVATIVE FREE, ADSORBED 2021 113 complet ed [facility] INFLUENZA, ADJUVANTED, QUADRIVALENT, PF 2020 205 complet ed [facility] INFLUENZA, UNSPECIFIED FORMULATION 2020 88 complet ed [facility] COVID-19 (Azendoo), MRNA, LNP-S, PF, 30 MCG/0.3 ML DOSE 3 2020 208 complet ed [facility] COVID-19 (Azendoo), MRNA, LNP-S, PF, 30 MCG/0.3 ML DOSE 2 2020 208 complet ed [facility] COVID-19 (PFIZER), MRNA, LNP-S, PF, 30 MCG/0.3 ML DOSE 1 2020 208 complet ed [facility] INFLUENZA, ADJUVANTED, QUADRIVALENT, PF 2019 205 complet ed [facility] INFLUENZA, ADJUVANTED, TRIVALENT, PF 2018 168 complet ed [facility] INFLUENZA, ADJUVANTED, TRIVALENT, PF 2017 168 complet ed [facility] INFLUENZA, HIGH-DOSE, TRIVALENT, PF 2016 135 complet ed [facility] INFLUENZA, ADJUVANTED, TRIVALENT, PF 2016 168 complet ed [facility] INFLUENZA, HIGH-DOSE, TRIVALENT, PF 2015 135 complet ed [facility] ZOSTER LIVE 2015 121 complet ed [facility] PNEUMOCOCCAL CONJUGATE PCV 13 2014 133 complet ed [facility] INFLUENZA, HIGH-DOSE, TRIVALENT, PF 2014 135 complet ed [facility] INFLUENZA, HIGH-DOSE, TRIVALENT, PF 2013 135 complet ed [facility] INFLUENZA, UNSPECIFIED FORMULATION 2013 88 complet ed [facility] INFLUENZA, SPLIT VIRUS, TRIVALENT, PRESERVATIVE 2012 141 complet ed [facility] ZOSTER LIVE 2012 121 complet ed [facility] INFLUENZA, SPLIT VIRUS, TRIVALENT, PRESERVATIVE 2011 141 complet ed [facility] INFLUENZA, SPLIT VIRUS, TRIVALENT, PF 2010 140 complet ed [facility] PNEUMOCOCCAL POLYSACCHARID E PPV23 2010 33 complet ed [facility] TDAP 2010 115 complet ed [facility] INFLUENZA, SPLIT VIRUS, TRIVALENT, PRESERVATIVE 2009 141 complet [facility] NOVEL INFLUENZA-H1N 1-09, ALL FORMULATIONS 2009 128 complet ed [facility] INFLUENZA, SPLIT VIRUS, TRIVALENT, PF 2008 140 complet ed [facility] PNEUMOCOCCAL POLYSACCHARID E PPV23 2008 33 complet ed [facility] INFLUENZA, SPLIT VIRUS, TRIVALENT, PRESERVATIVE 2008 141 complet ed [facility] INFLUENZA, SPLIT VIRUS, TRIVALENT, PRESERVATIVE 2007 141 complet ed [facility] INFLUENZA, SPLIT VIRUS, TRIVALENT, PRESERVATIVE 2005 141 complet ed [facility] INFLUENZA, SPLIT VIRUS, TRIVALENT, PRESERVATIVE 2004 141 complet ed [facility] PNEUMOCOCCAL POLYSACCHARID E PPV23 2004 33 complet ed [facility] INFLUENZA, SPLIT VIRUS, TRIVALENT, PRESERVATIVE 2003 141 complet ed [facility] Results Combined list of recent chemistry, [...] 05, 2023 03:10 PM Reporting Lab: [facility] [address] Performing Lab: [facility] [address] [place] [facility] BASIC METABOLI C PANEL+MG UREA NITROGEN [MASS/VOLU ME] IN SERUM OR PLASMA 15 mg/dL 8 - 02/13 Specimen Type: PLASMA No comment entered. Ordering Provider: ANKUSH BOWMAN Report Released Date/Time: Feb 05, 2023 03:10 PM Reporting Lab: [facility] [address] Performing Lab: [facility] [address] [place] [facility] BASIC METABOLI C PANEL+MG GLUCOSE [MASS/VOLU ME] IN SERUM OR PLASMA 140 mg/dL 70 - 100 02/13 H Specimen Type: PLASMA No comment entered. Ordering Provider: ANKUSH BOWMAN Report Released Date/Time: Feb 05, 2023 03:10 PM Reporting Lab: [facility] [address] Performing Lab: [facility] [address] [place] [facility] BASIC METABOLI C PANEL+MG SODIUM [MOLES/VOL UME] IN SERUM OR PLASMA 135 mmol/L 136 - 145 04/05 /2023 L Specimen Type: PLASMA No comment entered. Ordering Provider: ANKUSH BOWMAN Report Released Date/Time: Feb 05, 2023 03:10 PM Reporting Lab: [facility] [address] Performing Lab: [facility] [address] [place] [facility] BASIC METABOLI C PANEL+MG POTASSIUM [MOLES/VOL UME] IN SERUM OR PLASMA 4.0 mmol/L 3.5 - 5.1 02/13 Specimen Type: PLASMA No comment entered. Ordering Provider: ANKUSH BOWMAN Report Released Date/Time: Feb 05, 2023 03:10 PM Reporting Lab: [facility] [address] Performing Lab: [facility] [address] [place] [facility] BASIC METABOLI C PANEL+MG CHLORIDE [MOLES/VOL UME] IN SERUM OR PLASMA 99 mmol/L 98 - 107 02/13 Specimen Type: PLASMA No comment entered. Ordering Provider: ANKUSH BOWMAN Report Released Date/Time: Feb 05, 2023 03:10 PM Reporting Lab: [facility] [address] Performing Lab: [facility] [address] [place] [facility] BASIC METABOLI C PANEL+MG CARBON DIOXIDE, TOTAL [MOLES/VOL UME] IN SERUM OR PLASMA 29 mmol/L 22 - 29 02/13 Specimen Type: PLASMA No comment entered. Ordering Provider: ANKUSH BOWMAN Report Released Date/Time: Feb 05, 2023 03:10 PM Reporting Lab: [facility] [address] Performing Lab: [facility] [address] [place] [facility] BASIC METABOLI C PANEL+MG CALCIUM [MASS/VOLU ME] IN SERUM OR PLASMA 9.2 mg/dL 8.4 - 10.2 02/13 Specimen Type: PLASMA No comment entered. Ordering Provider: ANKUSH BOWMAN Report Released Date/Time: Feb 05, 2023 03:10 PM Reporting Lab: [facility] [address] Performing Lab: [facility] [address] [place] [facility] BASIC METABOLI C PANEL+MG MAGNESIUM [MASS/VOLU ME] IN SERUM OR PLASMA 2.0 mg/dL 1.6 - 2.6 02/13 Specimen Type: PLASMA No comment entered. Ordering Provider: ANKUSH BOWMAN Report Released Date/Time: Feb 05, 2023 03:10 PM Reporting Lab: [facility] [address] Performing Lab: [facility] [address] [place] [facility] BASIC METABOLI C PANEL+MG ANION GAP IN SERUM OR PLASMA 7 mmol/L 5 - 15 02/13 Specimen Type: PLASMA No comment entered. Ordering Provider: ANKUSH BOWMAN Report Released Date/Time: Feb 05, 2023 03:10 PM Reporting Lab: [facility] [address] Performing Lab: [place] [id number] [place] [facility] BASIC METABOLI C PANEL+MG GLOMERULAR FILTRATION RATE/1.73 SQ M.PREDICTE D [VOLUME RATE/AREA] IN SERUM, PLASMA OR BLOOD BY CREATININE -BASED FORMULA (CKD-EPI) >90 60 02/13 Specimen Type: PLASMA No comment entered. Ordering Provider: ANKUSH BOWMAN Report Released Date/Time: Feb 05, 2023 03:10 PM Reporting Lab: [facility] [address] Performing Lab: [facility] [address] [place] [facility] CYSTATIN C WITH EGFR CYSTATIN C [MASS/VOLU ME] IN SERUM OR PLASMA 1.27 mg/L 0.51 - 1.05 02/13 H Specimen Type: PLASMA No comment entered. Ordering Provider: ANKUSH BOWMAN Report Released Date/Time: Feb 05, 2023 03:10 PM Reporting Lab: [facility] [address] Performing Lab: [facility] [address] [place] [facility] CYSTATIN C WITH EGFR CYSTATIN C AND GLOMERULAR FILTRATION RATE BY CYSTATIN C-BASED FORMULA PANEL - SERUM OR PLASMA 53 60 02/13 L Specimen Type: PLASMA No comment entered. Ordering Provider: ANKUSH BOWMAN Report Released Date/Time: Feb 05, 2023 03:10 PM Reporting Lab: [facility] [address] Performing Lab: [facility] [address] [place] [facility] URINALYS IS COLOR OF URINE YELLOW 10/08 Specimen Type: URINE No comment entered. Ordering Provider: ANKUSH BOWMAN Report Released Date/Time: Sep 24, 2022 01:55 PM Reporting Lab: [facility] [address] Performing Lab: [facility] [address] [place] [facility] URINALYS IS SPECIFIC GRAVITY OF URINE 1.023 1.003 - 1.035 10/08 Specimen Type: URINE No comment entered. Ordering Provider: ANKUSH BOWMAN Report Released Date/Time: Sep 24, 2022 01:55 PM Reporting Lab: [facility] [address] Performing Lab: [facility] [address] [place] [facility] URINALYS IS BILIRUBIN. TOTAL [PRESENCE] IN URINE BY TEST STRIP NEGATIVE 10/08 Specimen Type: URINE No comment entered. Ordering Provider: ANKUSH BOWMAN Report Released Date/Time: Sep 24, 2022 01:55 PM Reporting Lab: [facility] [phone] Performing Lab: [facility] [id number] [place] [facility] URINALYS IS KETONES [MASS/VOLU ME] IN URINE BY TEST STRIP NEGATIVE 10/08 Specimen Type: URINE No comment entered. Ordering Provider: ANKUSH BOWMAN Report Released Date/Time: Sep 24, 2022 01:55 PM Reporting Lab: [facility] [phone] Performing Lab: [facility] [id number] [place] [facility] URINALYS IS GLUCOSE [MASS/VOLU ME] IN URINE BY TEST STRIP NEGATIVE mg/dL <30 - 30 10/08 Specimen Type: URINE No comment entered. Ordering Provider: ANKUSH BOWMAN Report Released Date/Time: Sep 24, 2022 01:55 PM Reporting Lab: [facility] [phone] Performing Lab: [facility] [phone] [place] [facility] URINALYS IS PROTEIN [MASS/VOLU ME] IN URINE BY TEST STRIP 30 mg/dL <20 - 20 10/08 Specimen Type: URINE No comment entered. Ordering Provider: ANKUSH BOWMAN Report Released Date/Time: Sep 24, 2022 01:55 PM Reporting Lab: [facility] [address] Performing Lab: [facility] [address] [place] [facility] URINALYS IS PH OF URINE BY TEST STRIP 7.5 5.0 - 8.0 10/08 Specimen Type: URINE No comment entered. Ordering Provider: ANKUSH BOWMAN Report Released Date/Time: Sep 24, 2022 01:55 PM Reporting Lab: [facility] [address] Performing Lab: [facility] [address] [place] [facility] URINALYS IS LEUKOCYTES [#/AREA] IN URINE SEDIMENT BY MICROSCOPY HIGH POWER FIELD >180/[HP F] 0 - 7 10/08 H Specimen Type: URINE No comment entered. Ordering Provider: ANKUSH BOWMAN Report Released Date/Time: Sep 24, 2022 01:55 PM Reporting Lab: [facility] [address] Performing Lab: [facility] [address] [place] [facility] URINALYS IS BACTERIA [PRESENCE] IN URINE SEDIMENT BY LIGHT MICROSCOPY MANY 10/08 Specimen Type: URINE No comment entered. Ordering Provider: ANKUSH BOWMAN Report Released Date/Time: Sep 24, 2022 01:55 PM Reporting Lab: [facility] [address] Performing Lab: [facility] [address] [place] [facility] URINALYS IS ERYTHROCYT ES [#/AREA] IN URINE SEDIMENT BY MICROSCOPY HIGH POWER FIELD 33 /[HPF] 0 - 3 10/08 H Specimen Type: URINE No comment entered. Ordering Provider: ANKUSH BOWMAN Report Released Date/Time: Sep 24, 2022 01:55 PM Reporting Lab: [facility] [address] Performing Lab: [facility] [address] [place] [facility] URINALYS IS APPEARANCE OF URINE EX.TURBI D 10/08 Specimen Type: URINE No comment entered. Ordering Provider: ANKUSH BOWMAN Report Released Date/Time: Sep 24, 2022 01:55 PM Reporting Lab: [facility] [address] Performing Lab: [facility] [address] [place] [facility] URINALYS IS EPITHELIAL CELLS.SQUA MOUS [#/AREA] IN URINE SEDIMENT BY MICROSCOPY HIGH POWER FIELD 1 /[HPF] 10/08 Specimen Type: URINE No comment entered. Ordering Provider: ANKUSH BOWMAN Report Released Date/Time: Sep 24, 2022 01:55 PM Reporting Lab: [facility] [address] Performing Lab: [facility] [address] [place] [facility] URINALYS IS HEMOGLOBIN [PRESENCE] IN URINE BY TEST STRIP 1+ 10/08 Specimen Type: URINE No comment entered. Ordering Provider: ANKUSH BOWMAN Report Released Date/Time: Sep 24, 2022 01:55 PM Reporting Lab: [facility] [address] Performing Lab: [facility] [address] [place] [facility] URINALYS IS NITRITE [PRESENCE] IN URINE BY TEST STRIP NEGATIVE 10/08 Specimen Type: URINE No comment entered. Ordering Provider: ANKUSH BOWMAN Report Released Date/Time: Sep 24, 2022 01:55 PM Reporting Lab: [facility] [address] Performing Lab: [facility] [address] [place] [facility] URINALYS IS LEUKOCYTE CLUMPS [#/VOLUME] IN URINE BY AUTOMATED COUNT PRESENT 10/08 Specimen Type: URINE No comment entered. Ordering Provider: ANKUSH BOWMAN Report Released Date/Time: Sep 24, 2022 01:55 PM Reporting Lab: [facility] [address] Performing Lab: [facility] [address] [place] [facility] URINALYS IS LEUKOCYTE ESTERASE [PRESENCE] IN URINE BY TEST STRIP 500 10/08 Specimen Type: URINE No comment entered. Ordering Provider: ANKUSH BOWMAN Report Released Date/Time: Sep 24, 2022 01:55 PM Reporting Lab: [facility] [address] Performing Lab: [facility] [address] [place] [facility] ALBUMIN ALBUMIN [MASS/VOLU ME] IN SERUM OR PLASMA 4.2 g/dL 3.5 - 5.2 10/08 Specimen Type: PLASMA No comment entered. Ordering Provider: ANKUSH BOWMAN Report Released Date/Time: Sep 24, 2022 01:55 PM Reporting Lab: [facility] [address] Performing Lab: [facility] [address] [place] [facility] PRE-ALBU MIN PREALBUMIN [MASS/VOLU ME] IN SERUM OR PLASMA 28.4 mg/dL 14.0 - 45.0 10/08 Specimen Type: SERUM No comment entered. Ordering Provider: ANKUSH BOWMAN Report Released Date/Time: Sep 24, 2022 01:55 PM Reporting Lab: [facility] [address] Performing Lab: [facility] [address] [place] [facility] CBC & DIFF LEUKOCYTES [#/VOLUME] IN BLOOD BY AUTOMATED COUNT 7.32 10*3/uL 4.0 - 11.0 10/08 Specimen Type: BLOOD Comment: Automated Differentia l Performed Ordering Provider: ANKUSH BOWMAN Report Released Date/Time: Sep 24, 2022 01:55 PM Reporting Lab: [facility] [address] Performing Lab: [facility] [address] [place] [facility] CBC & DIFF ERYTHROCYT ES [#/VOLUME] IN BLOOD BY AUTOMATED COUNT 4.80 10*6/uL 4.6 - 6.2 10/08 Specimen Type: BLOOD Comment: Automated Differentia l Performed Ordering Provider: ANKUSH BOWMAN Report Released Date/Time: Sep 24, 2022 01:55 PM Reporting Lab: [facility] [address] Performing Lab: [facility] [address] [place] [facility] CBC & DIFF HEMOGLOBIN [MASS/VOLU ME] IN BLOOD 14.7 g/dL 13.5 - 17.9 10/08 Specimen Type: BLOOD Comment: Automated Differentia l Performed Ordering Provider: ANKUSH BOWMAN Report Released Date/Time: Sep 24, 2022 01:55 PM Reporting Lab: [facility] [address] Performing Lab: [facility] [address] [place] [facility] CBC & DIFF HEMATOCRIT [VOLUME FRACTION] OF BLOOD BY AUTOMATED COUNT 44.2 41 - 54 10/08 Specimen Type: BLOOD Comment: Automated Differentia l Performed Ordering Provider: ANKUSH BOMWAN Report Released Date/Time: Sep 24, 2022 01:55 PM Reporting Lab: [facility] [address] Performing Lab: [facility] [address] [place] [facility] CBC & DIFF MCV [ENTITIC VOLUME] BY AUTOMATED COUNT 92.1 fL 80 - 100 10/08 Specimen Type: BLOOD Comment: Automated Differentia l Performed Ordering Provider: ANKUSH BOWMAN Report Released Date/Time: Sep 24, 2022 01:55 PM Reporting Lab: [facility] [address] Performing Lab: [facility] [address] [place] [facility] CBC & DIFF MCH [ENTITIC MASS] BY AUTOMATED COUNT 30.6 pg 27 - 33 10/08 Specimen Type: BLOOD Comment: Automated Differentia l Performed Ordering Provider: ANKUSH BOWMAN Report Released Date/Time: Sep 24, 2022 01:55 PM Reporting Lab: [facility] [address] Performing Lab: [facility] [address] [place] [facility] CBC & DIFF MCHC [MASS/VOLU ME] BY AUTOMATED COUNT 33.3 g/dL 32.0 - 37.5 10/08 Specimen Type: BLOOD Comment: Automated Differentia l Performed Ordering Provider: ANKUSH BOWMAN Report Released Date/Time: Sep 24, 2022 01:55 PM Reporting Lab: [facility] [address] Performing Lab: [facility] [address] [place] [facility] CBC & DIFF PLATELETS [#/VOLUME] IN BLOOD BY AUTOMATED COUNT 144 10*3/uL 150 - 400 10/08 L Specimen Type: BLOOD Comment: Automated Differentia l Performed Ordering Provider: ANKUSH BOWMAN Report Released Date/Time: Sep 24, 2022 01:55 PM Reporting Lab: [facility] [address] Performing Lab: [facility] [address] [place] [facility] CBC & DIFF PLATELET MEAN VOLUME [ENTITIC VOLUME] IN BLOOD BY AUTOMATED COUNT 10.8 fL 7.4 - 10.4 10/08 H Specimen Type: BLOOD Comment: Automated Differentia l Performed Ordering Provider: ANKUSH BOWMAN Report Released Date/Time: Sep 24, 2022 01:55 PM Reporting Lab: [facility] [address] Performing Lab: [facility] [address] [place] [facility] CBC & DIFF NEUTROPHIL S/100 LEUKOCYTES IN BLOOD BY MANUAL COUNT 55.5 10/08 Specimen Type: BLOOD Comment: Automated Differentia l Performed Ordering Provider: ANKUSH BOWMAN Report Released Date/Time: Sep 24, 2022 01:55 PM Reporting Lab: [facility] [address] Performing Lab: [facility] [address] [place] [facility] CBC & DIFF LYMPHOCYTE S/100 LEUKOCYTES IN BLOOD BY MANUAL COUNT 31.4 10/08 Specimen Type: BLOOD Comment: Automated Differentia l Performed Ordering Provider: ANKUSH BOWMAN Report Released Date/Time: Sep 24, 2022 01:55 PM Reporting Lab: [facility] [address] Performing Lab: [facility] [address] [place] [facility] CBC & DIFF MONOCYTES/ 100 LEUKOCYTES IN BLOOD BY AUTOMATED COUNT 10.2 10/08 Specimen Type: BLOOD Comment: Automated Differentia l Performed Ordering Provider: ANKUSH BOWMAN Report Released Date/Time: Sep 24, 2022 01:55 PM Reporting Lab: [facility] [address] Performing Lab: [facility] [address] [place] [facility] CBC & DIFF EOSINOPHIL S/100 LEUKOCYTES IN BLOOD BY AUTOMATED COUNT 2.2 10/08 Specimen Type: BLOOD Comment: Automated Differentia l Performed Ordering Provider: ANKUSH BOWMAN Report Released Date/Time: Sep 24, 2022 01:55 PM Reporting Lab: [facility] [address] Performing Lab: [facility] [address] [place] [facility] CBC & DIFF BASOPHILS/ 100 LEUKOCYTES IN BLOOD BY MANUAL COUNT 0.4 10/08 Specimen Type: BLOOD Comment: Automated Differentia l Performed Ordering Provider: ANKUSH BOWMAN Report Released Date/Time: Sep 24, 2022 01:55 PM Reporting Lab: [facility] [address] Performing Lab: [facility] [address] [place] [facility] CBC & DIFF ERYTHROCYT E DISTRIBUTI ON WIDTH [RATIO] BY AUTOMATED COUNT 15.9 11.5 - 14.5 10/08 H Specimen Type: BLOOD Comment: Automated Differentia l Performed Ordering Provider: ANKUSH BOWMAN Report Released Date/Time: Sep 24, 2022 01:55 PM Reporting Lab: [facility] [address] Performing Lab: [facility] [address] [place] [facility] CBC & DIFF LYMPHOCYTE S [#/VOLUME] IN BLOOD BY AUTOMATED COUNT 2.30 10*3/uL 1.0 - 4.0 10/08 Specimen Type: BLOOD Comment: Automated Differentia l Performed Ordering Provider: ANKUSH BOWMAN Report Released Date/Time: Sep 24, 2022 01:55 PM Reporting Lab: [facility] [address] Performing Lab: [facility] [address] [place] [facility] CBC & DIFF MONOCYTES [#/VOLUME] IN BLOOD BY AUTOMATED COUNT 0.75 10*3/uL 0.1 - 1.0 10/08 Specimen Type: BLOOD Comment: Automated Differentia l Performed Ordering Provider: ANKUSH BOWMAN Report Released Date/Time: Sep 24, 2022 01:55 PM Reporting Lab: [facility] [address] Performing Lab: [facility] [address] [place] [facility] CBC & DIFF NEUTROPHIL S [#/VOLUME] IN BLOOD BY AUTOMATED COUNT 4.06 10*3/uL 2.0 - 7.7 10/08 Specimen Type: BLOOD Comment: Automated Differentia l Performed Ordering Provider: ANKUSH BOWMAN Report Released Date/Time: Sep 24, 2022 01:55 PM Reporting Lab: [facility] [address] Performing Lab: [facility] [address] [place] [facility] CBC & DIFF EOSINOPHIL S [#/VOLUME] IN BLOOD BY AUTOMATED COUNT 0.16 10*3/uL 0 - 0.5 10/08 Specimen Type: BLOOD Comment: Automated Differentia l Performed Ordering Provider: ANKUSH BOWMAN Report Released Date/Time: Sep 24, 2022 01:55 PM Reporting Lab: [facility] [address] Performing Lab: [facility] [address] [place] [facility] CBC & DIFF BASOPHILS [#/VOLUME] IN BLOOD BY AUTOMATED COUNT 0.03 10*3/uL 0 - 0.2 10/08 Specimen Type: BLOOD Comment: Automated Differentia l Performed Ordering Provider: ANKUSH BOWMAN Report Released Date/Time: Sep 24, 2022 01:55 PM Reporting Lab: [facility] [address] Performing Lab: [facility] [address] [place] [facility] CBC & DIFF IG(META,MY MALACHI,PRO) 0.3 10/08 Specimen Type: BLOOD Comment: Automated Differentia l Performed Ordering Provider: ANKUSH BOWMAN Report Released Date/Time: Sep 24, 2022 01:55 PM Reporting Lab: [facility] [address] Performing Lab: [facility] [address] [place] [facility] CBC & DIFF IMMATURE GRANULOCYT ES [PRESENCE] IN BLOOD BY AUTOMATED COUNT 0.02 10*3/uL 0 - 0.1 10/08 Specimen Type: BLOOD Comment: Automated Differentia l Performed Ordering Provider: ANKUSH BOWMAN Report Released Date/Time: Sep 24, 2022 01:55 PM Reporting Lab: [facility] [address] Performing Lab: [facility] [address] [place] [facility] COMPREHE NSIVE METABOLI C PANEL+MG CREATININE [MASS/VOLU ME] IN SERUM OR PLASMA 0.7 mg/dL 0.7 - 1.2 10/08 Specimen Type: PLASMA No comment entered. Ordering Provider: ANKUSH BOWMAN Report Released Date/Time: Sep 24, 2022 01:55 PM Reporting Lab: [facility] [address] Performing Lab: [facility] [address] [place] [facility] COMPREHE NSIVE METABOLI C PANEL+MG UREA NITROGEN [MASS/VOLU ME] IN SERUM OR PLASMA 16 mg/dL 8 - 26 10/08 Specimen Type: PLASMA No comment entered. Ordering Provider: ANKUSH BOWMAN Report Released Date/Time: Sep 24, 2022 01:55 PM Reporting Lab: [facility] [address] Performing Lab: [facility] [address] [place] [facility] COMPREHE NSIVE METABOLI C PANEL+MG GLUCOSE [MASS/VOLU ME] IN SERUM OR PLASMA 94 mg/dL 70 - 100 10/08 Specimen Type: PLASMA No comment entered. Ordering Provider: ANKUSH BOWMAN Report Released Date/Time: Sep 24, 2022 01:55 PM Reporting Lab: [facility] [address] Performing Lab: [facility] [address] [place] [facility] COMPREHE NSIVE METABOLI C PANEL+MG SODIUM [MOLES/VOL UME] IN SERUM OR PLASMA 138 mmol/L 136 - 145 10/08 Specimen Type: PLASMA No comment entered. Ordering Provider: ANKUSH BOWMAN Report Released Date/Time: Sep 24, 2022 01:55 PM Reporting Lab: [facility] [address] Performing Lab: [facility] [address] [place] [facility] COMPREHE NSIVE METABOLI C PANEL+MG POTASSIUM [MOLES/VOL UME] IN SERUM OR PLASMA 3.9 mmol/L 3.5 - 5.1 10/08 Specimen Type: PLASMA No comment entered. Ordering Provider: ANKUSH BOWMAN Report Released Date/Time: Sep 24, 2022 01:55 PM Reporting Lab: [facility] [address] Performing Lab: [facility] [address] [place] [facility] COMPREHE NSIVE METABOLI C PANEL+MG CHLORIDE [MOLES/VOL UME] IN SERUM OR PLASMA 101 mmol/L 98 - 107 10/08 Specimen Type: PLASMA No comment entered. Ordering Provider: ANKUSH BOWMAN Report Released Date/Time: Sep 24, 2022 01:55 PM Reporting Lab: [facility] [address] Performing Lab: [facility] [address] [place] [facility] COMPREHE NSIVE METABOLI C PANEL+MG CARBON DIOXIDE, TOTAL [MOLES/VOL UME] IN SERUM OR PLASMA 28 mmol/L 22 - 29 10/08 Specimen Type: PLASMA No comment entered. Ordering Provider: ANKUSH BOWMAN Report Released Date/Time: Sep 24, 2022 01:55 PM Reporting Lab: [facility] [address] Performing Lab: [facility] [address] [place] [facility] COMPREHE NSIVE METABOLI C PANEL+MG CALCIUM [MASS/VOLU ME] IN SERUM OR PLASMA 9.7 mg/dL 8.4 - 10.2 10/08 Specimen Type: PLASMA No comment entered. Ordering Provider: ANKUSH BOWMAN Report Released Date/Time: Sep 24, 2022 01:55 PM Reporting Lab: [facility] [address] Performing Lab: [facility] [address] [place] [facility] COMPREHE NSIVE METABOLI C PANEL+MG PROTEIN [MASS/VOLU ME] IN SERUM OR PLASMA 7.6 g/dL 6.0 - 8.3 10/08 Specimen Type: PLASMA No comment entered. Ordering Provider: ANKUSH BOWMAN Report Released Date/Time: Sep 24, 2022 01:55 PM Reporting Lab: [facility] [address] Performing Lab: [facility] [address] [place] [facility] COMPREHE NSIVE METABOLI C PANEL+MG ALBUMIN [MASS/VOLU ME] IN SERUM OR PLASMA 4.2 g/dL 3.5 - 5.2 10/08 Specimen Type: PLASMA No comment entered. Ordering Provider: ANKUSH BOWMAN Report Released Date/Time: Sep 24, 2022 01:55 PM Reporting Lab: [facility] [address] Performing Lab: [facility] [address] [place] [facility] COMPREHE NSIVE METABOLI C PANEL+MG BILIRUBIN. TOTAL [MASS/VOLU ME] IN SERUM OR PLASMA 0.6 mg/dL 0.2 - 1.2 10/08 Specimen Type: PLASMA No comment entered. Ordering Provider: ANKUSH BOWMAN Report Released Date/Time: Sep 24, 2022 01:55 PM Reporting Lab: [facility] [address] Performing Lab: [facility] [address] [place] [facility] COMPREHE NSIVE METABOLI C PANEL+MG MAGNESIUM [MASS/VOLU ME] IN SERUM OR PLASMA 2.1 mg/dL 1.6 - 2.6 10/08 Specimen Type: PLASMA No comment entered. Ordering Provider: ANKUSH BOWMAN Report Released Date/Time: Sep 24, 2022 01:55 PM Reporting Lab: [facility] [address] Performing Lab: [facility] [address] [place] [facility] COMPREHE NSIVE METABOLI C PANEL+MG ANION GAP IN SERUM OR PLASMA 9 mmol/L 5 - 15 10/08 Specimen Type: PLASMA No comment entered. Ordering Provider: ANKUSH BOWMAN Report Released Date/Time: Sep 24, 2022 01:55 PM Reporting Lab: [facility] [address] Performing Lab: [facility] [address] [place] [facility] COMPREHE NSIVE METABOLI C PANEL+MG ALKALINE PHOSPHATAS E [ENZYMATIC ACTIVITY/V OLUME] IN SERUM OR PLASMA 96 U/L 40 - 150 10/08 Specimen Type: PLASMA No comment entered. Ordering Provider: ANKUSH BOWMAN Report Released Date/Time: Sep 24, 2022 01:55 PM Reporting Lab: [facility] [address] Performing Lab: [facility] [address] [place] [facility] COMPREHE NSIVE METABOLI C PANEL+MG ALANINE AMINOTRANS FERASE [ENZYMATIC ACTIVITY/V OLUME] IN SERUM OR PLASMA 29 U/L <55 - 55 10/08 Specimen Type: PLASMA No comment entered. Ordering Provider: ANKUSH BOWMAN Report Released Date/Time: Sep 24, 2022 01:55 PM Reporting Lab: [facility] [address] Performing Lab: [facility] [address] [place] [facility] COMPREHE NSIVE METABOLI C PANEL+MG ASPARTATE AMINOTRANS FERASE [ENZYMATIC ACTIVITY/V OLUME] IN SERUM OR PLASMA 22 U/L <34 - 34 10/08 Specimen Type: PLASMA No comment entered. Ordering Provider: ANKUSH BOWMAN Report Released Date/Time: Sep 24, 2022 01:55 PM Reporting Lab: [facility] [address] Performing Lab: [facility] [address] [place] [facility] COMPREHE NSIVE METABOLI C PANEL+MG GLOMERULAR FILTRATION RATE/1.73 SQ M.PREDICTE D [VOLUME RATE/AREA] IN SERUM, PLASMA OR BLOOD BY CREATININE -BASED FORMULA (CKD-EPI) >90 60 10/08 Specimen Type: PLASMA No comment entered. Ordering Provider: ANKUSH BOWMAN Report Released Date/Time: Sep 24, 2022 01:55 PM Reporting Lab: [facility] [address] Performing Lab: [facility] [address] [place] [facility] CYSTATIN C WITH EGFR CYSTATIN C [MASS/VOLU ME] IN SERUM OR PLASMA 1.38 mg/L 0.51 - 1.05 11/28 /2022 H Specimen Type: PLASMA No comment entered. Ordering Provider: ANKUSH BOWMAN Report Released Date/Time: Sep 24, 2022 01:55 PM Reporting Lab: [facility] [address] Performing Lab: [facility] [address] [place] [facility] CYSTATIN C WITH EGFR CYSTATIN C AND GLOMERULAR FILTRATION RATE BY CYSTATIN-B ASED FORMULA PANEL - SERUM OR PLASMA 48 60 10/08 L Specimen Type: PLASMA No comment entered. Ordering Provider: ANKUSH BOWMAN Report Released Date/Time: Sep 24, 2022 01:55 PM Reporting Lab: [facility] [address] Performing Lab: [facility] [address] [place] [facility] VIT D 25-OH,TO ZAMZAM 25-HYDROXY VITAMIN D3 [MASS/VOLU ME] IN SERUM OR PLASMA 54 ng/mL 12 - 50 10/08 H Specimen Type: SERUM No comment entered. Ordering Provider: ANKUSH BOWMAN Report Released Date/Time: Sep 24, 2022 01:55 PM Reporting Lab: [facility] [address] Performing Lab: [facility] [address] [place] [facility] Encounters Combined list of: 1) Encounters from Department of Veterans Affairs facilities going back up to thelast 18 months. 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 Location Location Details Encounter Type Encounter Number Reason For Visit Attending Provider ADM Date DC Date Status Disposition Source [place] [facility] Outpatient Encounter [id number] [facility] HC PRO PHONE CALL 21-30 MIN [id number] Diagnos is: ICD-10- CM G82.20 Paraple mary kay, unspeci fied
Hever CASTRO 01/08 [facility] [place] [facility] Outpatient Encounter [id number] [facility] DIABETIC MANAGEMENT PROGRAM, [id number] Diagnos is: ICD-10- CM G82.20 Paraple mary kay, unspeci fied
TIGIST BASSETT 01/30 [facility] Outpatient Encounter [id number] [facility] [facility] MTMS BY PHARM ADDL 15 MIN [id number] Diagnos is: ICD-10- CM G82.20 Paraple mary kay, unspeci fied
MANPREET BARRETTEY N 02/05 [facility] OT EVAL LOW COMPLEX 30 MIN [id number] Diagnos is: ICD-10- CM Z73.6 Limitat ion of activit ies due to disabil ity<br/ > Bryn PARDO 02/05 [facility] OFF/OP EST MAY X REQ PHY/QHP [id number] Diagnos is: ICD-10- CM G82.20 Paraple mary kay, unspeci fied
JOSUÉ ZAMORA J 02/05 [facility] PSYCH DIAGNOSTIC EVALUATION [id number] Diagnos is: ICD-10- CM F32.A Depress ion, unspeci fied
BINU GAMEZ 02/05 [facility] OFFICE O/P EST MOD 30-39 MIN [id number] Diagnos is: ICD-10- CM G82.20 Paraple mary kay, unspeci fied
ME LOGAN BOWMAN 02/05 [facility] PSYCH DIAGNOSTIC EVALUATION [id number] Diagnos is: ICD-10- CM G82.20 Paraple mary kay, unspeci fied
MAHI ABAD DESIRE J 02/05 [facility] MEDICAL NUTRITION INDIV IN [id number] Diagnos is: ICD-10- CM Z71.3 Dietary residential child care counselor ing and surveil payal<b r/> Katia ARCHER 02/05 [facility] [place] [id number] Diagnos is: ICD-10- CM Z43.3 Encount er for attenti on to colosto my
VIOLA YOON 02/08 [facility] OFFICE O/P EST HI 40-54 MIN [id number] Diagnos is: ICD-10- CM G82.20 Paraple mary kay, unspeci fied
ME LOGAN BOWMAN 02/13 [facility] WHEELCHAIR MNGMENT TRAINING [phone] Diagnos is: ICD-10- CM Z73.6 Limitat ion of activit ies due to disabil ity<br/ > BOUSLOG,RY AN P 02/13 [facility] Outpatient Encounter [id number] 02/19 [facility] HC PRO PHONE CALL 11-20 MIN [phone] Diagnos is: ICD-10- CM Z73.6 Limitat ion of activit ies due to disabil ity<br/ > BOUSLOG,RY AN P 04/23 [facility] Outpatient Encounter [id number] 04/24 [facility] Outpatient Encounter [id number] 05/24 [facility] OFF/OP EST MAY X REQ PHY/QHP [id number] Diagnos is: ICD-10- CM G82.20 Paraple mary kay, unspeci fied
VIOLA YOON 05/28 [facility] [place] WHEELCHAIR MNGMENT TRAINING [id number] Diagnos is: ICD-10- CM Z73.6 Limitat ion of activit ies due to disabil ity<br/ > BOUSLOG,RY AN P 06/10 [facility] [place] [facility] Outpatient Encounter [id number] 10/28 [facility] [place] [facility] Outpatient Encounter [id number] 11/20 [facility] [place] [facility] Outpatient Encounter [id number] 05/12 [facility] Social History Combined list of available smoking, tobacco, and other social history from 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 Social History Type Response Date Comment [facility] e Tobacco smoking status [facility] NEVER USED 05/28/20 22 SADAF TREVINO [facility] This section is an empty social history section. [facility] Plan of Care List of future care activities from Department 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 Additional future care activities may be listed in the Assessment and Plan section. Date/Time Care Activity Care Activity Detail Facili ty 07/30/2024 AMBULATORY - REHAB MEDICINE AMBULATORY - REHAB MEDICINE [facility] 05/12/2024 Consult Order SCI/D WHEELCHAIR SEATING/POSITIONING OUTPT Cons Pecan Huller's Choice [facility] Advance Directives List of completed, amended, or rescinded Advance Directives on record at Department of 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 An actual copy of the Directive is not included. Date Advance Directive Provider Source 02/05/2023 ADVANCE DIRECTIVE DISCUSSION GUSTAVO ABAD [facility]
--- OUTSIDE RECORDS SUMMARY | 2024-07-14 12:44 | XMS_ITS | Encounter Summary ---
[facility] Organization [facility] Address [address], [place] [address] Care Team Providers Care Hand Or Machine Paster Name Role Phone Franklin Squires MD Primary Care Provider [phone] Encounter Details Date Type Department Care Team (Late st Contact Info) Description 11/23/2015 Correspondence External to External, [place] [address] [facility] Social History Tobacco Use Types Packs/Day Years [...] filedocumented in this encounter Care Teams Hand Or Machine Paster Relationship Specialty Start Date End Date Franklin Squires MD [address] [place] [address] [place] [address] PCP - General Family Practice 03/08/16 documented as of this encounter
--- OUTSIDE RECORDS SUMMARY | 2024-07-14 12:44 | XMS_ITS | Encounter Summary ---
[facility] Organization [facility] Address [address] [address] Care Team Providers Care Whiskey Regauger Name Role Phone Franklin Squires MD Primary Care Provider [phone] Encounter Details Date Type Department Care Team (Latest Contact Info) Description 06/04/2014 Correspondence [facility] 401 Interventional Pain Management 401 [facility] [place] [address] Zelalem Cohen, DO [address] [place] [address] MEDICAID PT INFORMATION EMPI RECOVERY Social History [...] on filedocumented in this encounter Care Teams Whiskey Regauger Relationship Specialty Start Date End Date [place] Squires MD [address] [facility] [place] [address] PCP - General Family Practice 03/08/16 documented as of this encounter
--- OUTSIDE RECORDS SUMMARY | 2024-07-14 12:44 | XMS_ITS | Encounter Summary ---
[facility] Address [address] [address] Care Team Providers Care Aluminum Container Tester Name Role Phone Franklin Squires MD Primary Care Provider Encounter Details Date Type Department Care Team (Late st Contact Info) Description 08/20/2014 Outside Hospital External to [facility] Social History Tobacco Use Types [...] on filedocumented in this encounter Care Teams Aluminum Container Tester Relationship Specialty Start Date End Date Franklin Squires MD [address] [place], [place] [address] [address] PCP - General Family Practice 03/08/16 documented as of this encounter
--- OUTSIDE RECORDS SUMMARY | 2024-07-14 12:44 | XMS_ITS | Encounter Summary ---
Author Organization [facility] Address [address] [address] Care Team Providers Care Die Fitter Name Role Phone Franklin Squires MD Primary Care Provider Encounter Details Date Type Department Care Team (Late st Contact Info) Description 12/14/2014 Correspondence [facility] 401 Physical Medicine 401 [facility] [place] [address] May Randle MD [address] [place] [address] DETAILED PRODUCT DESCRIPTION Social History Tobacco Use [...] filedocumented in this encounter Care Teams Die Fitter Relationship Specialty Start Date End Date Franklin Squires MD 100 [facility] [place] [address] PCP - General Family Practice 03/08/16 documented as of this encounter
--- OUTSIDE RECORDS SUMMARY | 2024-07-14 12:44 | XMS_ITS | Encounter Summary ---
Author Organization [facility] Address [address] [address] Care Team Providers Care Supervisor Irrigation Name Role Phone Franklin Squires MD Primary Care Provider Encounter Details Date Type Department Care Team (Late st Contact Info) Description 06/11/2014 Correspondence [facility] 401 Physical Medicine 401 [facility] [place] [address] May Randle MD [address] [place] [address] [facility] Social History Tobacco Use Types Packs/Day Years [...] filedocumented in this encounter Care Teams Supervisor Irrigation Relationship Specialty Start Date End Date Franklin Squires MD 100 [facility] [place] [address] PCP - General Family Practice 03/08/16 documented as of this encounter
--- OUTSIDE RECORDS SUMMARY | 2024-07-14 12:44 | XMS_ITS | Encounter Summary ---
Author Organization [facility] Address [address] [address] Care Team Providers Care Welfare Investigator Name Role Phone Franklin Squires MD Primary Care Provider Encounter Details Date Type Department Care Team (Late st Contact Info) Description 02/09/2016 Correspondence [facility] 401 NeuroSurgery 401 [facility] [place], [place] [id number] Jodi Aguila PA-C [address] [place] [id number] PATIENT LIFT PRESCRIPTION Social History Tobacco Use [...] on filedocumented in this encounter Care Teams Welfare Investigator Relationship Specialty Start Date End Date Franklin Squires MD 100 [facility] [place] [phone] PCP - General Family Practice 03/08/16 documented as of this encounter
--- OUTSIDE RECORDS SUMMARY | 2024-07-14 12:44 | XMS_ITS | Encounter Summary ---
[facility] Organization [facility] Address [address], [place] [address] Care Team Providers Care Classified Ad Clerk Name Role Phone Franklin Squires MD [...] on filedocumented in this encounter Care Teams Classified Ad Clerk Relationship Specialty Start Date End Date Franklin Squires MD 100 [facility] [place] [address] PCP - General Family Practice 03/08/16 documented as of this encounter
--- OUTSIDE RECORDS SUMMARY | 2024-07-14 12:44 | XMS_ITS | Encounter Summary ---
Author Organization [facility] Address [address] [address] Care Team Providers Care Biomedical Equipment Support Specialist Name Role Phone Franklin Squires MD Primary Care Provider [phone] Encounter Details Date Type Department Care Team (Late st Contact Info) Description 06/07/2015 Correspondence [facility] Radiology [address] [place] [address] Radiology, Provider MRI SAFETY SHEET AND COMPATIBILITY [...] on filedocumented in this encounter Care Teams Biomedical Equipment Support Specialist Relationship Specialty Start Date End Date Franklin Squires MD [address] [place], [place] [address] [address] PCP - General Family Practice 03/08/16 documented as of this encounter
--- OUTSIDE RECORDS SUMMARY | 2024-07-14 12:44 | XMS_ITS | Encounter Summary ---
Author Organization [facility] Address [address] [address] Care Team Providers Care Shirt Line Operator Name Role Phone Franklin Squires MD Primary Care Provider [phone] Encounter Details Date Type Department Care Team (Late st Contact Info) Description 01/06/2016 Correspondence [facility] Radiology [address] [place] [address] Radiology, Provider MRI SAFETY SHEET AND COMPATIBILITY [...] filedocumented in this encounter Care Teams Shirt Line Operator Relationship Specialty Start Date End Date Franklin Squires MD [address] [place], [place] [address] [address] PCP - General Family Practice 03/08/16 documented as of this encounter
--- OUTSIDE RECORDS SUMMARY | 2024-07-14 12:44 | XMS_ITS | Encounter Summary ---
Author Organization [facility] Address [address], [place] [address] Care Team Providers Care Stone Rougher Name Role Phone Franklin Squires MD Primary Care Provider Encounter Details Date Type Department Care Team (Late st Contact Info) Description 03/11/2014 Correspondence [facility] 401 Interventional Pain Management 401 [place] [address] Zelalem Cohen, DO [address] [place] [address] EMPI Social History Tobacco Use Types Packs/Day [...] filedocumented in this encounter Care Teams Stone Rougher Relationship Specialty Start Date End Date Franklin Squires MD 100 [facility] [place] [address] PCP - General Family Practice 03/08/16 documented as of this encounter
--- OUTSIDE RECORDS SUMMARY | 2024-07-14 12:44 | XMS_ITS | Encounter Summary ---
Author Organization [facility] Address [address], [place] [address] Care Team Providers Care Scarfer Operator Name Role Phone Franklin Squires MD Primary Care Provider [phone] Encounter Details Date Type Department Care Team [...] on filedocumented in this encounter Care Teams Scarfer Operator Relationship Specialty Start Date End Date Franklin Squires MD 100 [facility] [place] [address] PCP - General Family Practice 03/08/16 documented as of this encounter
--- OUTSIDE RECORDS SUMMARY | 2024-07-14 12:44 | XMS_ITS | Encounter Summary ---
Author Organization [facility] Address [address] [address] Care Team Providers Care Education Assistant Name Role Phone Franklin Squires MD Primary Care Provider Encounter Details Date Type Department Care Team (Late st Contact Info) Description 08/22/2014 Outside Hospital External to [facility] HOSP-D/C SUMMARY Social History Tobacco Use [...] on filedocumented in this encounter Care Teams Education Assistant Relationship Specialty Start Date End Date Franklin Squires MD 100 [facility] [place] [address] PCP - General Family Practice 03/08/16 documented as of this encounter
--- OUTSIDE RECORDS SUMMARY | 2024-07-14 12:44 | XMS_ITS | Clinical Summary ---
Author Organization [facility] Address [place], [place] [address] Care Team Providers Care Coal Pulverizing Operator Name Role Phone Zelalem Cohen MD Unavailable [phone] May Randle) Unavailable Franklin Squires MD Primary Care Provider Fred Craft Unavailable [phone] Diane Charles MD Unavailable [phone] Julia Ware RN Unavailable [phone] Allergies Active Allergy Reactions Criticality Noted Date [...] bedIndications:Non-heal ing surgical wound, subsequent encounter Drive Trusper 8 inch low loss mattress and 1/2 rails. Semi-electric bed. Length of need 6 weeks. Bed corporate driver:no 1 unit 018 Active acetaminophen (TYLENOL EXTRA [...] 60mm, Cut-to-Fit 01/16 - 2 11/18. Item #[id number]. 1 Each 11 021 Active ascorbic acid, [...] A DAY 180 Capsule 1 024 Active warfarin (COUMADIN) 5 mg tabletIndications:Iliof [...] daily in the morning. 90 Tablet 2 024 Active oxyCODONE 10 mg tabletIndications:Chron ic pain syndrome Take 1 Tablet (10 mg) by mouth every 6 hours. 120 Tablet 024 Active LORazepam (ATIVAN) 0.5 mg tabIndications:Parapleg ia (HC) TAKE ONE TABLET BY MOUTH TWICE A DAY AND TAKE TWO TABLETS BY MOUTH AT BEDTIME 120 Tablet 2 024 Active donepeziL (ARICEPT) 5 mg tabletIndications:Confu hailey TAKE 1 TABLET AT BEDTIME 90 Tablet 1 024 Active LORazepam (ATIVAN) 0.5 mg tabIndications:Parapleg ia (HC) TAKE ONE TABLET BY MOUTH TWICE A DAY AND TAKE TWO TABLETS BY MOUTH AT BEDTIME 120 Tablet 2 024 2023 Discontinued(R eorder (E-cancel not sent)) furosemide (LASIX) 40 mg tabletIndications:Bilat eral lower extremity edema TAKE ONE TABLET BY MOUTH TWICE A DAY 180 Tablet 1 024 2023 Discontinued(* Medication adjustment) donepeziL (ARICEPT) 5 mg tabletIndications:Confu hailey TAKE 1 TABLET AT BEDTIME 90 Tablet 024 2023 Discontinued oxyCODONE 10 mg tabletIndications:Chron [...] Date Resolved Date Soft tissue infection 10/22/20232023 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 06/20/2023 01/08/2024 [...] delivery 04/16/2007 10/01/2007 Overview: S/P IVC Filter longterm (current) use of anticoagulants 02/19/2007 09/27/2008 Depressive disorder, not elsewhere classified 02/14/20 07 01/15/2018 Abnormality of gait 12/24/2006 09/27/20 08 Urinary tract infection, site not specified 12/24/2006 01/15/2018 BENIGN ESSENTIAL HYPERTENSION 12/24/2006 04/17/2016 Overview: borderline Necrotizing fasciitis 2018 Type 2 diabetes mellitus Encounters Date Type Department Care Team Description 07/14/[address] [address] Franklin Squires MD Form (Case Communication- Major drug interactions-( Warfarin) - Home Health Certification and Plan of Care - 07/08/2024-09/05/2024) 07/14/[address] [place] [address] Franklin Squires MD Refill Request (Bupropion) 07/09/2024 Orders Only [facility] Scanner 1 scan: (1-Ord) [facility], CT PELVIS W CON, 07/09/2024 07/08/2024 1:30 PM CDT Nurse/Clinic Staff [place] [address] [place] [address] Nurse/Clinic Staff Only (Cath Change ) 07/08/2024 Travel 07/07/[address] [address] Franklin Squires MD Refill Request (Donepezil) 07/02/2024 1:30 PM CDT [address] [place] [address] Franklin Squires MD Medication Management 07/02/2024 Travel 07/01/2024 [address]tico[address]farin) [address] [address] 1, [facility] Anticoagulation (Acelis) 06/17/2024 Anticoagulation (warfarin) [address] [place] [address] 1, [facility] Anticoagulation (acelis) 06/11/[address] [place] [address] Franklin Squires MD Refill Request (Warfarin) 06/03/2024 Anticoagulation (warfarin) [address] [place] [address] 1, [facility] Anticoagulation (Acelis) 06/02/[address] [place] [address] Franklin Squires MD Refill Request (Oxycodone) 05/20/2024 Anticoagulation (warfarin) [address] [place] [address] 1, [facility] Anticoagulation (Acelis) 05/14/[address] [place] [address] Franklin Squires MD Refill Request (Baclofen) 05/14/[address] [place] [address] Franklin Squires MD Refill Request (Warfarin) 05/13/2024 Anticoagulation (warfarin) [address] [place] [address] 1, [facility] Anticoagulation (Acelis) 05/11/[address] [place] [address] Franklin Squires MD Form (Physician Orders and Home Health Certification and Plan of Care.) 05/06/2024 Anticoagulation (warfarin) [facility] [address] [place] [address] 1, [facility] Anticoagulation (Acelis) 05/05/2024 Telephone [facility] [address] [place] [address] Franklin Squires MD Form (60 Day Summary Report) 05/05/2024 Refill [facility] [address] [place] [address] Franklin Squires MD Refill Request (Warfarin) 05/04/2024 Telephone [facility] [address] [place] [address] Franklin Squires MD Form 05/04/2024 Refill [facility] [address] [place] [address] Franklin Squires MD Refill Request (Oxycodone) 05/01/2024 Anticoagulation (warfarin) [address] [place] [address] 1, [facility] Anticoagulation (Acelis) 04/29/2024 Refill [facility] [address] [place] [address] Franklin Squires MD Refill Request (Duloxetine, Donepezil) 04/24/2024 2:49 PM CDT - 04/24/2024 2:50 PM CDT Emergency [facility] [address] [facility] [place] [address] Discharge Disposition: Against Medical Advice or Discontinued Care 04/24/2024 Travel 04/24/2024 Anticoagulation (warfarin) [facility] [address] [place] [address] 1, [facility] Anticoagulation (Acelis) 04/21/[address] [place] [address] Franklin Squires MD Refill Request (Gabapentin) 04/20/[address] [address] Franklin Squires MD Form (Physician Orders. Urinary Catheter - Suprapubic. ) 04/20/[address] [address] Franklin Squires MD Refill Request (Gabapentin 400 mg) 04/13/[address] [address] Franklin Squires MD Form (Standard Written Order: Rehab Accessories. Cushion, Quadtro Select HI PRO 20x20 or 11x11 CELL) from Last 3 Months Immunizations Name Administration Dates Next Due COVID-19 vaccine (Aditazz-CBIT A/S NTech 30mcg/0.3mL) 12YO+ BIVALENT PF, MDV 10/22/2022 COVID-19 vaccine (Aditazz-CBIT A/S NTech 30mcg/0.3mL) PF, MDV 01/25/2021,01/02/2021 Influenza A [...] 07/29/2024 1:30 PM CDT Nurse/Clinic Staff Only [address] [address] Health Maintenance Due Date Last Done Comments Hepatitis C screening for ag e 18-79 1964 RSV vaccine for adults or (1 - 1-dose 60+ series) 2006 Zoster (shingles) series for age 50+ (2 of 3) 01/11/2016 11/16/2015, 03/23/2013 Medicare Wellness for age 65+ 02/07/2018 02/06/2017, 10/19/2015 COVID-19 vaccine series ( season) 2024 10/22/2022, 08/06/2021, 01/25/2021, Additional history exists Influenza for age 65+ 07/12/2024 10/22/2022 , 10/11/2022, 09/03/2021, Additional history exists Depression screening for age 12+ 12/19/2024 12/19/2023, 12/19/2023, 06/29/2022, Additional history exists Tetanus booster 05/28/2032 05/28/2022, 06/28/2011 Tdap Completed 06/28/2011 Pneumococcal series for age 65+ Completed 10/19/2015, 08/13/2011, 10/06/2009, Additional history exists Procedures Procedure Name Priority Date/Time Associated Diagnosis Comments SCAN-CT INTERPRETATION 07/09/2024 12:00 AM CDT CBC W PLT NO DIFF Routine 07/02/2024 [...] CDT from Last 3 Months Results * SCAN-CT INTERPRETATION (07/09/2024 12:00 AM CDT) Anatomical Region Laterality Modality Other Scanner OTHER * LIPID PANEL W REFLEX MEASURED LDL (07/02/2024 2:14 PM CDT) [facility] CHOLESTEROL,TOTAL 122 100 - 199 mg/dL 07/02/2024 3:04 PM CDT [facility] Comment: Cholesterol, Total Reference Ranges Desirable <200 mg/dL Borderline 200-239 mg/dL High >=240 mg/dL TRIGLYCERIDES 58 <150 mg/dL 07/02/2024 3:04 PM CDT [facility] HDL CHOLESTEROL 56 >40 mg/dL 3:04 PM CDT [facility] NON-HDL CHOLESTEROL 66 <145 mg/dl 07/02/2024 3:04 PM CDT [facility] CHOL/HDL RATIO 2.18 <4.50 07/02/2024 3:04 PM T [facility] LDL CHOLESTEROL 54 <=130 mg/dL 07/02/2024 3:04 PM [facility] VLDL CHOLESTEROL 12 <=30 mg/dL 07/02/2024 3:04 PM [facility] PROVIDER ORDERED STATUS RANDOM 07/02/2024 3:04 PM [facility] Blood BLOOD SPECIMEN / Unknown Venipuncture / Unknown 07/02/2024 2:14 PM CDT 07/02/2024 2:14 PM CDT Franklin Squires MD CHEMISTRY [facility] [address] [place] [address] * (ABNORMAL) CBC W PLT NO DIFF (07/02/2024 2:14 PM CDT) WHITE BLOOD COUNT 8.5 4.5 - 11.0 thou/cu mm 07/02/2024 2:58 PM [facility] RED BLOOD COUNT 4.75 4.30 - 5.90 mil/cu mm 07/02/2024 2:58 PM [facility] HEMOGLOBIN 14.1 13.5 - 17.5 g/dL 07/02/2024 2:58 PM [facility] HEMATOCRIT 42.2 37.0 - 53.0 % 07/02/2024 2:58 PM [facility] MCV 89 80 - 100 fL 07/02/2024 2:58 PM [facility] MCH 29.7 26.0 - 34.0 pg 07/02/2024 2:58 PM [facility] MCHC 33.4 32.0 - 36.0 g/dL 07/02/2024 2:58 PM [facility] RDW 18.3(H) 11.5 - 15.5 % 07/02/2024 2:58 PM [facility] PLATELET COUNT 159 140 - 440 thou/cu mm 07/02/2024 2:58 PM CDT [facility] MPV 10.7 6.5 - 11.0 fL 07/02/2024 2:58 PM CDT [facility] Blood BLOOD SPECIMEN / Unknown Venipuncture / Unknown 07/02/2024 2:14 PM CDT 07/02/2024 2:14 PM CDT Franklin Squires MD HEMATOLOGY Performing Organization Address [facility] [place] [facility] Co de Phone Number [facility] [address] [place] [address] * HEMOGLOBIN A1C MONITORING (POCT) (07/02/2024 2:14 PM CDT) [facility] HEMOGLOBIN A1C MONITORING (POCT) 5.9 <=6.4 % 07/02/2024 2:49 PM CDT [facility] Blood BLOOD SPECIMEN / Unknown Venipuncture / Unknown 07/02/2024 2:14 PM CDT 07/02/2024 2:14 PM CDT Narrative [facility] - 07/02/2024 2:49 PM CDT [...] Franklin Squires MD CHEMISTRY Performing Organization Address [facility] [place] [facility] Co de Phone Number [facility] [address] [place] [address] * (ABNORMAL) BASIC METABOLIC PANEL (07/02/2024 2:14 PM CDT) SODIUM 138 136 - 145 mmol/L 07/02/2024 3:04 PM [facility] POTASSIUM 4.1 3.5 - 5.1 mmol/L 07/02/2024 3:04 PM [facility] CHLORIDE 99 98 - 107 mmol/L 07/02/2024 3:04 PM [facility] CO2,TOTAL 29 22 - 29 mmol/L 07/02/2024 3:04 PM [facility] ANION GAP 10 5 - 18 07/02/2024 3:04 PM [facility] GLUCOSE 95 70 - 99 mg/dL 07/02/2024 3:04 PM [facility] CALCIUM 9.5 8.8 - 10.2 mg/dL 07/02/2024 3:04 PM [facility] BUN 18 8 - 23 mg/dL 07/02/2024 3:04 PM [facility] CREATININE 0.69(L) 0.70 - 1.20 mg/dL 07/02/2024 3:04 PM [facility] BUN/CREAT RATIO 26(H) 10 - 20 3:04 PM [facility] eGFR >90 >90 mL/min/1.7 3m2 07/02/2024 3:04 PM [facility] Comment:As of 2022, eG FR [...] 2:14 PM CDT Franklin Squires MD CHEMISTRY [facility] [address] [place] [address] * HOME MONITOR AC (07/01/2024 12:00 AM CDT) Only the most recent of8 resultswithin the time period is included. PATIENT REPORTED HOME INR 2.8 2.00 - 3.00 [facility] 07/01/2024 Franklin Squires MD OTHER [facility] [address] 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
--- OUTSIDE RECORDS SUMMARY | 2024-07-14 12:44 | XMS_ITS | Encounter Summary ---
Author Organization [facility] Address [address] [address] Care Team Providers Care Project Program Manager Name Role Phone Franklin Squires MD Primary Care Provider [phone] Encounter Details Date Type Department Care Team (Late st Contact Info) Description 07/28/2014 Outside Hospital External to External, Provider No address [address] ER VISIT/TRANSFER Social History Tobacco Use [...] filedocumented in this encounter Care Teams Project Program Manager Relationship Specialty Start Date End Date Franklin Squires MD [address] [facility] [place] [address] PCP - General Family Practice 03/08/16 documented as of this encounter
--- OUTSIDE RECORDS SUMMARY | 2024-07-14 12:44 | XMS_ITS | Encounter Summary ---
Author Organization [facility] Address [address], [place] [address] Care Team Providers Care Biometric Fingerprinting Technician Name Role Phone Franklin Squires MD Primary Care Provider Encounter Details Date Type Department Care Team (Late st Contact Info) Description 05/04/2014 Correspondence [facility] 401 Physical Medicine [address] [facility] [place] [address] May Randle MD [address] [place] [address] LETTER OF MEDICAL NECESSITY FOR A WHEELCHAIR [...] on filedocumented in this encounter Care Teams Biometric Fingerprinting Technician Relationship Specialty Start Date End Date Franklin Squires MD 100 [facility] [place] [address] PCP - General Family Practice 03/08/16 documented as of this encounter
--- OUTSIDE RECORDS SUMMARY | 2024-07-14 12:44 | XMS_ITS | Encounter Summary ---
Author Organization [facility] [address], [place] [address] Care Team Providers Care Doctor Of Pharmacy Name Role Phone Franklin Squires MD Primary Care Provider [phone] Encounter Details Date Type Department Care Team (Late st Contact Info) Description 11/10/2014 Correspondence [facility] Physical Therapy [address] [place] [address] Trudi Raymundo, PT [address] [place] [address] LETTER OF MEDICAL NECESSITY Social History Tobacco [...] on filedocumented in this encounter Care Teams Doctor Of Pharmacy Relationship Specialty Start Date End Date Franklin Squires MD 100 [facility] [place] [address] PCP - General Family Practice 03/08/16 documented as of this encounter
--- OUTSIDE RECORDS SUMMARY | 2024-07-14 12:44 | XMS_ITS | Encounter Summary ---
Author Organization [facility] Address [address] [address] Care Team Providers Care Cotton Factor Name Role Phone Franklin Squires MD Primary Care Provider [phone] Encounter Details Date Type Department Care Team (Latest Contact Info) Description 12/11/2017 Correspondence Physiatry/Physical Medicine at [facility] [address] [facility] [place] [address] May Randle MD [address] [place] [address] [employer] Social History Tobacco Use [...] filedocumented in this encounter Care Teams Cotton Factor Relationship Specialty Start Date End Date Franklin Squires MD [address] [place] [address] [place] [address] PCP - General Family Practice 03/08/16 documented as of this encounter
--- OUTSIDE RECORDS SUMMARY | 2024-07-14 12:44 | XMS_ITS | Encounter Summary ---
Author Organization [facility] Address [address] [address] Care Team Providers Care New Car Driver Name Role Phone Franklin Squires MD Primary Care Provider [phone] Encounter Details Date Type Department Care Team (Late st Contact Info) Description 12/16/2014 Correspondence External to External, [place] [address] MEDICARE PLAN OF CARE RECERT Social History [...] on filedocumented in this encounter Care Teams New Car Driver Relationship Specialty Start Date End Date Franklin Squires MD [address] [place] [address] [facility] [place] [address] PCP - General Family Practice 03/08/16 documented as of this encounter
--- OUTSIDE RECORDS SUMMARY | 2024-07-14 12:44 | XMS_ITS | Encounter Summary ---
Author Organization [facility] [address] [address] Care Team Providers Care Ramp Supervisor Name Role Phone Franklin Squires MD Primary Care Provider [phone] Encounter Details Date Type Department Care Team (Late st Contact Info) Description 07/08/2015 Correspondence [facility] Physical Therapy [address] [place] [address] Trudi Raymundo, PT [address] [place] [address] ADDENDUM FOR LETTER OF MEDICAL NECESSITY Social [...] on filedocumented in this encounter Care Teams Ramp Supervisor Relationship Specialty Start Date End Date Franklin Squires MD [address] [facility] [place] [address] PCP - General Family Practice 03/08/16 documented as of this encounter
--- OUTSIDE RECORDS SUMMARY | 2024-07-14 12:44 | XMS_ITS | Encounter Summary ---
Author Organization [facility] Address [address] [address] Care Team Providers Care Parish Visitor Name Role Phone Franklin Squires MD Primary Care Provider Encounter Details Date Type Department Care Team (Late st Contact Info) Description 08/20/2014 Outside Hospital External to [facility] H/P Social History Tobacco [...] on filedocumented in this encounter Care Teams Parish Visitor Relationship Specialty Start Date End Date Franklin Squires MD [address] [facility] [place] [address] PCP - General Family Practice 03/08/16 documented as of this encounter
--- OUTSIDE RECORDS SUMMARY | 2024-07-14 12:44 | XMS_ITS ---
Author Organization [facility] Address [address], [place] [address] Care Team Providers Care Senior Marketing Associate Name Role Phone Franklin Squires MD [...] are documented for this patient in [facility]. Treatments may have been administered in another system. Resolved Problems Problem Noted Date Diagnosed Date Resolved Date Gait abnormality 01/17/2012 02/09/2015 Back pain 01/17/2012 02/09/2015 Paraplegia 04/04/2011 02/09/2015 Osteoporosis 03/06/2011 02/09/2015 Urinary tract infection 12/24/200603/11
--- OUTSIDE RECORDS SUMMARY | 2024-07-14 12:44 | XMS_ITS | Encounter Summary ---
Author Organization [facility] Address [address], [place] [address] Care Team Providers Care Soda Drier Feeder Name Role Phone Franklin Squires MD Primary Care Provider Encounter Details Date Type Department Care Team (Late st Contact Info) Description 09/07/2014 Correspondence [facility] Radiology [address] [place] [address] Radiology, Provider MRI SAFETY SHEET AND COMPATIBILITY [...] on filedocumented in this encounter Care Teams Soda Drier Feeder Relationship Specialty Start Date End Date Franklin Squires MD [address] [place], [place] [address] [address] PCP - General Family Practice 03/08/16 documented as of this encounter
--- OUTSIDE RECORDS SUMMARY | 2024-07-14 12:44 | XMS_ITS | Clinical Summary ---
Author Organization [facility] Address [address] [place] [address] Care Team Providers Care Banbury Mixer Operator Name Role Phone Franklin Squires MD Primary Care Provider [phone] Source Comments You are receiving this document [...] for each transition of care or referral. [employer] Allergies Active Allergy Reactions Criticality Noted Date [...] Blood Pressure 120/63 01/18/2022 12:59 PM MANAGER POWER Pulse 87 01/18/2022 12:59 PM MANAGER POWER Temperature 36.3 ??C (97.4 ??F) 01/18/2022 12:59 [...] this topic Medical Devices Implanted Type Area Rn Clinical Review Device Identifier Shelf Expiration Date Model / Serial / Lot [id number] 4ml Tisseel Explanted:(Roosevelt ntity not on file) BIOLOGIC N/A: NECK Lynne Fenwall 09/10/2011 [id number] / [id number] / [id number] Description:posterior Cath Intrathecal Indura - [id number] Implanted:Qty: 1 on 05/09/2010 at [facility] DEVICE Right: LUMBAR SPINE RealDirect 01/18/2012 8709 / N/A / [id number] Cath Intrathecal Indura - [id number] Implanted:Qty: 1 on 05/29/2010 at [facility] DEVICE RealDirect 8709 / / Scr Indira Conic 7.3x80 - [id number] Implanted:Qty: 1 on 03/13/2011 at [facility] DEVICE Right: FEMUR DISTAL [employer] 02.207.28 0 / NONE / NONE Plt Lcp Cndl Rt 4.5x170 6h - [id number] Implanted:Qty: 1 on 03/13/2011 at [facility] DEVICE Right: FEMUR DISTAL [employer] 222.656 / NONE / NONE Description:6 hole 170mm rig ht 4.5mm lcp condylar plate Scr Didier Ss Sftp 4.5x40 - [id number] Implanted:Qty: 1 on 03/13/2011 at [facility] DEVICE Left: FEMUR DISTAL [employer] 214.840 / NONE / NONE Scr Didier Ss Sftp 4.5x50 - [id number] Implanted:Qty: 1 on 03/13/2011 at [facility] DEVICE Left: FEMUR DISTAL [employer] 214.850 / NONE / NONE Scr Indira Lk 5.0x80 - [id number] Implanted:Qty: 2 on 03/13/2011 at [facility] DEVICE Left: FEMUR DISTAL [employer] 02.205.08 0 / NONE / NONE Scr Indira Lk 5.0x85 - [id number] Implanted:Qty: 2 on 03/13/2011 at [facility] DEVICE Left: FEMUR DISTAL [employer] 02.205.08 5 / NONE / NONE Scr Lk Sftp T25 5.0x50 - [id number] Implanted:Qty: 1 on 03/13/2011 at [facility] DEVICE Left: FEMUR DISTAL [employer] 212.219 / NONE / NONE Scr Lk Sftp T25 5.0x60 - [id number] Implanted:Qty: 1 on 03/13/2011 at [facility] DEVICE Left: FEMUR DISTAL [employer] 212.221 / NONE / NONE Scr Indira Conic 7.3x85 - [id number] Implanted:Qty: 1 on 03/13/2011 at [facility] DEVICE Left: FEMUR DISTAL [employer] 02.207.28 5 / NONE / NONE Plt Lcp Cndl Lt 4.5x170 6h - [id number] Implanted:Qty: 1 on 03/13/2011 at [facility] DEVICE Left: FEMUR DISTAL [employer] 222.657 / NONE / NONE Description:6 hole 170mmleng th left 4.5mm lcp condylar plate. Scr Didier Sftp 3.5x60 F-Thrd - [id number] Implanted:Qty: 1 on 03/13/2011 at [facility] DEVICE Left: TIBIA PROXIMAL [employer] 204.860 / NONE / NONE Scr Star Lk Sftp 3.5x32 - [id number] Implanted:Qty: 1 on 03/13/2011 at [facility] DEVICE Left: TIBIA PROXIMAL [employer] 212.112 / NONE / NONE Scr Star Lk Sftp 3.5x55 - [id number] Implanted:Qty: 2 on 03/13/2011 at [facility] DEVICE Left: TIBIA PROXIMAL [employer] 212.123 / NONE / NONE Scr Star Lk Sftp 3.5x60 - [id number] Implanted:Qty: 2 on 03/13/2011 at [facility] DEVICE Left: TIBIA PROXIMAL [employer] 212.124 / NONE / NONE Plt Lcp M/Prox Lt 3.5x94 4h - [id number] Implanted:Qty: 1 on 03/13/2011 at [facility] DEVICE Left: TIBIA PROXIMAL [employer] 239.955 / NONE / NONE Scr Didier Ss Sftp 4.5x36 - [id number] Implanted:Qty: 1 on 03/13/2011 at [facility] DEVICE Right: FEMUR DISTAL [employer] 214.836 / NONE / NONE Scr Didier Ss Sftp 4.5x44 - [id number] Implanted:Qty: 1 on 03/13/2011 at [facility] DEVICE Right: FEMUR DISTAL [employer] 214.844 / NONE / NONE Scr Indira Lk 5.0x75 - [id number] Implanted:Qty: 1 on 03/13/2011 at [facility] DEVICE Right: FEMUR DISTAL [employer] 02.205.07 5 / NONE / NONE Scr Indira Lk 5.0x85 - [id number] Implanted:Qty: 2 on 03/13/2011 at [facility] DEVICE Right: FEMUR DISTAL [employer] 02.205.08 5 / NONE / NONE Scr Lk Sftp T25 5.0x44 - [id number] Implanted:Qty: 1 on 03/13/2011 at [facility] DEVICE Right: FEMUR DISTAL [employer] 212.216 / NONE / NONE Scr Lk Sftp T25 5.0x65 - [id number] Implanted:Qty: 1 on 03/13/2011 at [facility] DEVICE Right: FEMUR DISTAL [employer] 212.222 / NONE / NONE Plt Lp T Ti Str 4h - [id number] Implanted:Qty: 3 on 07/28/2014 by Cooper Shelley MD at [facility] DEVICE Right: SKULL [employer] 421.504 / / Scr Matrix Sfdr 4mm - [id number] Implanted:Qty: 6 on 07/28/2014 by Cooper Shelley MD at [facility] DEVICE Right: SKULL [employer] 04.503.10 4.01 / / Lead Linear 3-4 8 Contact 50cm - [id number] Implanted:Qty: 1 on 03/08/2016 by Zelalem Cohen DO at [facility] DEVICE N/A: OTHER-SEE DESCRIPTION [facility] 09/10/2017 [id number] 2500 / / [id number] Description:LUMBAR Lead Linear 3-4 8 Contact 50cm - [id number] Implanted:Qty: 1 on 03/08/2016 by Zelalem Cohen DO at [facility] DEVICE N/A: OTHER-SEE DESCRIPTION [facility] 09/10/2017 [id number] 2500 / / [id number] Description:LUMBAR Lead Linear 3-4 8 Contact 50cm - [id number] Implanted:Qty: 1 on 03/08/2016 by Zelalem Cohen DO at [facility] DEVICE N/A: OTHER-SEE DESCRIPTION [facility] 09/10/2017 [id number] 2500 / / [id number] Description:LUMBAR Lead Linear 3-4 8 Contact 50cm - [id number] Implanted:Qty: 1 on 03/08/2016 by Zelalem Cohen DO at [facility] DEVICE N/A: OTHER-SEE DESCRIPTION [facility] 09/10/2017 [id number] 2500 / / [id number] Description:LUMBAR Lead Linear 3-4 8 Contact 50cm - [id number] Implanted:Qty: 1 on 05/24/2016 by Zelalem Cohen DO at [facility] DEVICE N/A: SPINE LUMBAR POSTERIOR [facility] 01/31/2018 [id number] 2500 / [id number] / Lead Linear 3-4 8 Contact 50cm - [id number] Implanted:Qty: 1 on 05/24/2016 by Zelalem Cohen DO at [facility] DEVICE N/A: SPINE LUMBAR POSTERIOR [facility] 04/26/2018 [id number] 2500 / [id number] / Lead Linear 3-4 8 Contact 50cm - [id number] Implanted:Qty: 1 on 05/24/2016 by Zelalem Cohen DO at [facility] DEVICE N/A: SPINE LUMBAR POSTERIOR [facility] 04/26/2018 [id number] 2500 / [id number] / Lead Linear 3-4 8 Contact 50cm - [id number] Implanted:Qty: 1 on 05/24/2016 by Zelalem Cohen DO at [facility] DEVICE N/A: SPINE LUMBAR POSTERIOR [facility] 04/26/2018 [id number] 2500 / [id number] / Generator Pulse Spectra - [id number] Implanted:Qty: 1 on 05/24/2016 by Zelalem Cohen DO at [facility] DEVICE N/A: SPINE LUMBAR POSTERIOR [facility] 05/08/2018 [id number] 20 / [id number] / [id number] [employer] - [id number] Implanted:Qty: 1 on 05/24/2016 by Zelalem Cohen DO at [facility] DEVICE N/A: SPINE LUMBAR POSTERIOR [facility] 05/02/2018 [id number] 60 / / [id number] [employer] - [id number] Implanted:Qty: 1 on 05/24/2016 by Zelalem Cohen DO at [facility] DEVICE N/A: SPINE LUMBAR POSTERIOR [facility] 02/28/2018 [id number] 60 / / [id number] Procedures Procedure Name Priority Date/Time Associated Diagnosis Comments CREATININE/GFR, WB POC Routine 01/06/2016 12:04 PM MANAGER POWER Back pain, 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 HGB A1C Routine 07/29/2014 3:19 AM CDT from Last 3 Months or Most Recently Relevant to Health Maintenance Results * CREATININE/GFR, WB POC (01/06/2016 12:04 PM MANAGER POWER) [facility] Creat Whole Blood 0.9 0.66 - 1.25 mg/dl [facility] GFR, Estimated >60 >60 ml/min/1.7 3m2 [facility] GFR, Est., If Black >60 >60 ml/min/1.7 3m2 [facility] 01/06/2016 12:0 4 PM MANAGER POWER 01/06/2016 12:21 PM MANAGER POWER Trae Blair MD LAB_1 [facility] [phone] * (ABNORMAL) HGB A1C (07/29/2014 3:19 AM CDT) [facility] Hgb A1c 6.4(H) 4.3 - 6.1 % [facility] Comment: The usual A1C goal for people with diabetes, age 18-75, is <8.0%. Physicians may recommend a higher or lower goal for specific individuals. 07/29/2014 3:19 AM CDT 07/29/2014 3:22 AM CDT Narrative [facility] - 07/29/2014 12:53 PM CDT Performed at [facility], [address] [place] [address] ??[id number] Jamaica Wei PA-C LAB_[address] [address] from Last 3 Months or Most Recently [...] 5:44 PM 07/28/2014 6:50 PM Care Teams Banbury Mixer Operator Relationship Specialty Start Date End Date Franklin Squires MD 100 [facility] [place] [address] PCP - General Family Practice 03/08/16
--- OUTSIDE RECORDS SUMMARY | 2024-07-14 12:44 | XMS_ITS | Encounter Summary ---
Author Organization [facility] Address [address], [place] [address] Care Team Providers Care Race Steward Name Role Phone Franklin Squires MD Primary [...] on filedocumented in this encounter Care Teams Race Steward Relationship Specialty Start Date End Date Franklin Squires MD [facility] [place] [address] PCP - General Family Practice 03/08/16 documented as of this encounter
--- OUTSIDE RECORDS SUMMARY | 2024-07-14 12:45 | XMS_ITS | Encounter Summary ---
Author Organization [facility] Address [address] [address] Care Team Providers Care Soap Maker Name Role Phone Franklin Squires MD Primary Care Provider Encounter Details Date Type Department Care Team (Late st Contact Info) Description 12/16/2013 Correspondence [facility] Radiology [address] [place] [address] Radiology, Provider MRI SAFETY SHEET AND COMPATIBILITY [...] Provider - 12/16/2013 12:00 AM CST D DIRECTOR documented in this encounter Plan of Treatment Not on file documented as of this encounter Visit Diagnoses Not on filedocumented in this encounter Care Teams Soap Maker Relationship Specialty Start Date End Date Franklin Squires MD 100 [facility] [place] [address] PCP - General Family Practice 03/08/16 documented as of this encounter
--- OUTSIDE RECORDS SUMMARY | 2024-07-14 12:45 | XMS_ITS | Encounter Summary ---
Author Organization [facility] Address [address], [place] [address] Care Team Providers Care License Clerk Name Role Phone Franklin Squires MD Primary Care Provider Encounter Details Date Type Department Care Team (Late st Contact Info) Description 04/24/2012 Correspondence [facility] Radiology [address] [place] [address] Radiology, Provider MRI SAFETY SHEET AND COMPATIBILITY [...] filedocumented in this encounter Care Teams License Clerk Relationship Specialty Start Date End Date Franklin Squires MD 100 [facility] [place] [address] PCP - General Family Practice 03/08/16 documented as of this encounter
--- OUTSIDE RECORDS SUMMARY | 2024-07-14 12:45 | XMS_ITS | Encounter Summary ---
Author Organization [facility] Address [address], [place] [address] Care Team Providers Care Digestion Operator Name Role Phone Franklin Squires MD Primary Care Provider Encounter Details Date Type Department Care Team (Late st Contact Info) Description 04/20/[address] [address] Radiology, Provider MRI SAFETY SHEET AND COMPATIBILITY [...] on filedocumented in this encounter Care Teams Digestion Operator Relationship Specialty Start Date End Date Franklin Squires MD 100 [facility] [place] [address] PCP - General Family Practice 03/08/16 documented as of this encounter
--- OUTSIDE RECORDS SUMMARY | 2024-07-14 12:45 | XMS_ITS | Encounter Summary ---
Author Organization [facility] [address], [place] [address] Care Team Providers Care Nickel Plater Name Role Phone Franklin Squires MD Primary Care Provider [phone] Encounter Details Date Type Department Care Team (Late st Contact Info) Description 10/26/2013 Correspondence [facility] Physical Therapy [address] [place] [address] Trudi Raymundo, PT [address] [place] [address] LETTER OF MEDICAL NECESSITY Social History Tobacco [...] Raymundo, PT - 10/26/2013 12:00 AM CST ESS ANALYST documented in this encounter Plan of Treatment Not on file documented as of this encounter Visit Diagnoses Not on filedocumented in this encounter Care Teams Nickel Plater Relationship Specialty Start Date End Date Franklin Squires MD [address] [facility] [address] PCP - General Family Practice 03/08/16 documented as of this encounter
--- OUTSIDE RECORDS SUMMARY | 2024-07-14 12:45 | XMS_ITS | Encounter Summary ---
Author Organization [facility] Address [address], [place] [address] Care Team Providers Care Certified Orthoptist Name Role Phone Franklin Squires MD Primary Care Provider Encounter Details Date Type Department Care Team (Late st Contact Info) Description 01/08/2013 Scanned History External to Transferred Record, Provider [facility] Social History Tobacco Use [...] filedocumented in this encounter Care Teams Certified Orthoptist Relationship Specialty Start Date End Date Franklin Squires MD 100 [facility] [place] [address] PCP - General Family Practice 03/08/16 documented as of this encounter
--- OUTSIDE RECORDS SUMMARY | 2024-07-14 12:45 | XMS_ITS | Encounter Summary ---
Author Organization [facility] Address [address], [place] [address] Care Team Providers Care Grade Checker Name Role Phone Franklin Squires MD Primary Care Provider [phone] Encounter Details Date Type Department Care Team [...] on filedocumented in this encounter Care Teams Grade Checker Relationship Specialty Start Date End Date Franklin Squires MD 100 [facility] [address] PCP - General Family Practice 03/08/16 documented as of this encounter
--- OUTSIDE RECORDS SUMMARY | 2024-07-14 12:45 | XMS_ITS | Encounter Summary ---
Author Organization [facility] Address [address], [place] [address] Care Team Providers Care Fur Stretcher Name Role Phone Franklin Squires MD Primary Care Provider [phone] Encounter Details Date Type Department Care Team (Late st Contact Info) Description 07/23/2013 Correspondence [facility] [address] [facility] [place] [address] Zelalem Cohen DO [address] [place] [address] [employer] Social History Tobacco Use Types [...] Cohen MD - 07/23/2013 12:00 AM CDT D SUPPORT SPECIALIST documented in this encounter Plan of Treatment Not on file documented as of this encounter Visit Diagnoses Not on filedocumented in this encounter Care Teams Fur Stretcher Relationship Specialty Start Date End Date Franklin Squires MD 100 [facility] [place] [address] PCP - General Family Practice 03/08/16 documented as of this encounter
--- OUTSIDE RECORDS SUMMARY | 2024-07-14 12:45 | XMS_ITS | Encounter Summary ---
Author Organization [facility] Address [address], [place] [address] Care Team Providers Care Surplus Property Disposal Agent Name Role Phone Franklin Squires MD Primary Care Provider [phone] Encounter Details Date Type Department Care Team (Late st Contact Info) Description 11/13/2012 Correspondence [facility] Radiology [address] [place] [address] Radiology, Provider MRI SAFETY SHEET AND COMPATIBILITY [...] RADIOLOGY, PROVIDER - 11/13/2012 12:00 AM CST SSIONS MANAGER documented in this encounter Plan of Treatment Not on file documented as of this encounter Visit Diagnoses Not on filedocumented in this encounter Care Teams Surplus Property Disposal Agent Relationship Specialty Start Date End Date Franklin Squires MD [address] [facility] [place] [address] PCP - General Family Practice 03/08/16 documented as of this encounter
--- OUTSIDE RECORDS SUMMARY | 2024-07-14 12:45 | XMS_ITS | Encounter Summary ---
Author Organization [facility] Address [address] [address] Care Team Providers Care Thin Film Technician Name Role Phone Franklin Squires MD Primary Care Provider [phone] Encounter Details Date Type Department Care Team (Late st Contact Info) Description 09/17/2013 Correspondence External to External, [place] [address] EMPOWERMENT RULES Social History Tobacco Use Types [...] External, Provider - 09/17/2013 12:00 AM CST TRONIC DIE MAKER documented in this encounter Plan of Treatment Not on file documented as of this encounter Visit Diagnoses Not on filedocumented in this encounter Care Teams Thin Film Technician Relationship Specialty Start Date End Date Franklin Squires MD [address] [place] [address] [place] [address] PCP - General Family Practice 03/08/16 documented as of this encounter
--- OUTSIDE RECORDS SUMMARY | 2024-07-14 12:45 | XMS_ITS | Encounter Summary ---
Author Organization [facility] [address], [place] [address] Care Team Providers Care Preschool Associate Teacher Name Role Phone Franklin Squires MD Primary Care Provider [phone] Encounter Details Date Type Department Care Team (Late st Contact Info) Description 02/05/2014 Correspondence [facility] Physical Therapy [address] [place] [address] Trudi Raymundo, PT [address] [place] [address] LETTER OF MEDICAL NECESSITY FOR A WHEELCHAIR [...] filedocumented in this encounter Care Teams Preschool Associate Teacher Relationship Specialty Start Date End Date Franklin Squires MD 100 [facility] [place] [address] PCP - General Family Practice 03/08/16 documented as of this encounter
== END 2024-07-14 12:41 | disposition home or self-care (01) ==
LOC: WOUND 12:41
PROVIDERS: PCP Family Medicine; Visit Provider Nurse Practitioner Family
DX: M86.68 Other chronic osteomyelitis, other site (principal); L89.324 Pressure ulcer of left buttock, stage 4; E11.622 Type 2 diabetes mellitus with other skin ulcer; G82.50 Quadriplegia, unspecified; Z99.3 Dependence on wheelchair
CPT/HCPCS: 87070; 87186; 97597; G0463

== ENCOUNTER 2024-07-20 12:41 | Outpatient (CLI) | payer MEDICARE, OTHER, SELFPAY ==
--- OUTSIDE RECORDS SUMMARY | 2024-07-20 12:43 | XMS_ITS | Continuity of Care Document ---
Author Name [facility] Organization [facility] Care Team Providers Care Interface Designer Name Role Phone [facility] Unavailable Unavailable Problems Combined list of problems from 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 It does not include entries that were removed or entered in error. Problem Status Onset Date Problem Type Date of Resolution Comments Source Abnormal liver function Active Condition [facility] Anemia (SCT 740458287) Active Condition [facility] Anxiety ([facility] 21732117) Active Condition [facility] Autonomic dysreflexia Active Condition [facility] Chronic Pain Syndrome (SCT 230625347) Active Condition [facility] Colostomy present Active Condition [facility] Constipation (SCT 14086080) Active Condition [facility] Continuous opioid dependence Active Condition [facility] COPD - Chronic Obstructive Pulmonary Disease (SCT 23569088) Active Condition [facility] Dementia Active Condition [facility] Depression (SCT 17257193) Active Condition [facility] Diabetes Mellitus Type 2 (SCT 95046566) Active Condition [facility] Ependymoma of spinal cord Active Condition [facility] Hearing Loss (SCT 28921101) Active Condition [facility] History of Deep Vein Thrombosis (SCT 012644805) Active Condition [facility] History of pressure injury Active Condition [facility] HTN - Hypertension (SCT 10878878) Active Condition [facility] Hyperlipidemia (SCT 64828441) Active Condition [facility] Hyponatremia Active Condition [facility] Long-term current use of anticoagulant Active Condition [facility] Neurogenic Bladder (SCT 509903373) Active Condition [facility] Neurogenic bowel Active Condition [facility] Osteoporosis ([facility] 97583854) Active Condition [facility] Paraplegia Active Condition [facility] Spasticity Active Condition [facility] Suprapubic urinary catheter in situ Active Condition [facility] Supraventricular tachycardia Active Condition [facility] Tinnitus ([facility] 53718490) Active Condition [facility] Vitamin D Deficiency ([facility] 2014124) Active Condition [facility] Diagnosis: ICD-10-CM Z73.6 Limitation of activities due to disability Active Diagnosis [facility] Diagnosis: ICD-10-CM G82.20 Paraplegia, unspecified Active Diagnosis [facility] Diagnosis: ICD-10-CM Z43.3 Encounter for attention to colostomy Active Diagnosis [facility] Diagnosis: ICD-10-CM Z71.3 Dietary counseling and surveillance Active Diagnosis [facility] Diagnosis: ICD-10-CM F32.A Depression, unspecified Active Diagnosis [facility] Medications Combined list of outpatient medications from Department of Defense and [facility] Affairs facilities.Medications provided include 1) [...] ed by: PIPO BARRETT Document ed at: [facility] ORAL ACTIVE Jagdish BARRETT 2022 [facility] AMLODIPINE BESYLATE (AMLODIPINE BESYLATE), 5 MG, TABLET, ORAL, [employer] 1000 ea. BOTTLE Active [id number] 4 2023 90 Pharmac y Data Transac tion Service Facilit y AMLODIPINE BESYLATE (amlodipine besylate), 5 MG, TABLET, ORAL, [facility], 1000 ea. BOTTLE Active [id number] 2023 90 Pharmac y Data Transac tion Service Facilit y AMLODIPINE BESYLATE 2.5MG TAB AMLODIPI NE BESYLATE 2.5MG TAB Non-VA TAKE TWO TABLETS BY MOUTH EVERY MORNING Feb 05, 2023 Non-VA Document ed by: PIPO BARRETT Document ed at: [facility] ORAL ACTIVE Jagdish BARRETT 2022 [facility] AMOX TR-POTASSIU M CLAVULANATE (AMOXICILLI N/POTASSIUM CLAV), 875-125 MG, TABLET, ORAL, [employer] [place], 20 ea. BOTTLE Active [id number] 2022 14 Pharmac y Data Transac tion Service Facilit y AMOXICILLIN -CLAVULANAT E POTASS (amoxicilli n/potassium clavulanate ), 875-125 MG, TABLET, ORAL, [facility] [facility] [place],, 20 ea. BOTTLE Active [id number] 2023 20 Pharmac y Data Transac tion Service Facilit y AMOXICILLIN -CLAVULANAT E POTASS (amoxicilli n/potassium clavulanate ), 875-125 MG, TABLET, ORAL, [facility] [place],, 20 ea. BOTTLE Active [id number] 2023 56 Pharmac y Data Transac tion Service Facilit y ARIPIPRAZOL E (aripiprazo le), 2 MG, TABLET, ORAL, [facility]ARMACE, 500 ea. BOTTLE Active [id number] 2023 180 Pharmac y Data Transac tion Service Facilit y ARIPIPRAZOL E (aripiprazo le), 2 MG, TABLET, ORAL, [facility] [facility]ARM[facility], 500 ea. BOTTLE Active [id number] 2023 180 Pharmac y Data Transac tion Service Facilit y ARIPIPRAZOL E TAB ARIPIPRA ZOLE TAB Non-VA TAKE 2MG BY MOUTH TWICE A DAY May 29, 2022 Non-VA Document ed by: SHANTAL HANSON Document ed at: [facility] ORAL ACTIVE Jey HANSON 2021 [facility] ATIVAN (LORAZEPAM) , 0.5 MG, TABLET, ORAL, VALEANT, 100 ea. BOTTLE Active [id number] 2023 120 Pharmac y Data Transac [...] BIOCON PHARMA I, 1000 ea. BOTTLE Active [id number] 2023 90 Pharmac y Data Transac tion Service Facilit y ATORVASTATI N CALCIUM (atorvastat in calcium), 40 MG, TABLET, ORAL, BIOCON PHARMA I, 1000 ea. BOTTLE Active [id number] 2023 90 Pharmac y Data Transac tion Service Facilit y BACLOFEN (baclofen), 20 MG, TABLET, ORAL, [facility] 1000 ea. BOTTLE Active [id number] 2023 540 Pharmac y Data Transac tion Service Facilit y BACLOFEN (baclofen), 20 MG, TABLET, ORAL, [facility] 1000 ea. BOTTLE Active [id number] 2023 540 Pharmac y Data Transac tion Service Facilit y BACLOFEN 20MG TAB BACLOFEN 20MG TAB Non-VA TAKE TWO TABLETS BY MOUTH THREE TIMES A DAY Feb 05, 2023 Non-VA Document ed by: PIPO BARRETT Document ed at: [facility] ORAL ACTIVE Jagdish BARRETT 2022 [facility] BUPROPION HCL 150MG 12HR TAB,SA BUPROPIO N HCL 150MG 12HR TAB,SA Non-VA TAKE ONE TABLET BY MOUTH TWICE A DAY May 29, 2022 Non-VA Document ed by: SHANTAL HANSON Document ed at: [facility] ORAL ACTIVE Jey HANSON [address] [facility] BUPROPION HCL SR (bupropion HCl), 150 MG, TAB SR 12H, ORAL, [facility], 60 ea. BOTTLE Active [id number] 2023 180 Pharmac y Data Transac tion Service Facilit y BUPROPION HCL SR (bupropion HCl), 150 MG, TAB SR 12H, ORAL, PAVEL PHARMACE[facility], 60 ea. BOTTLE Active [id number] 2023 180 Pharmac y Data Transac [...] ORAL, AUROBINDO PHARM, 50 ea. BOTTLE Active [id number] 2023 70 Pharmac y Data Transac tion Service Facilit y DONEPEZIL HCL (DONEPEZIL HCL), 5 MG, TABLET, ORAL, [employer] 1000 ea. BOTTLE Active [id number] 2023 90 Pharmac y Data Transac tion Service Facilit y DONEPEZIL HCL (DONEPEZIL HCL), 5 MG, TABLET, ORAL, [employer] 1000 ea. BOTTLE Cancele d [id number] : 2023 0 Pharmac y Data Transac tion Service Facilit y DONEPEZIL HCL (DONEPEZIL HCL), 5 MG, TABLET, ORAL, [employer] 1000 ea. BOTTLE Active [id number] 2023 90 Pharmac y Data Transac tion Service Facilit y DONEPEZIL HCL 10MG TAB DONEPEZI L HCL 10MG TAB Non-VA TAKE ONE-HALF TABLET BY MOUTH EVERY DAY May 29, 2022 Non-VA Document ed by: SHANTAL HANSON Document ed at: [facility] ORAL ACTIVE Jey HANSON 2021 [facility] DULOXETINE HCL (duloxetine HCl), 60 MG, CAPSULE DR, ORAL, [employer] 1000 ea. BOTTLE Active [id number] 2023 180 Pharmac y Data Transac tion Service Facilit y DULOXETINE HCL (duloxetine HCl), 60 MG, CAPSULE DR, ORAL, [employer] 1000 ea. BOTTLE Active [id number] 2023 180 Pharmac y Data Transac tion Service Facilit y DULOXETINE HCL 30MG CAP,EC DULOXETI NE HCL 30MG CAP,EC Non-VA TAKE 2 CAPSULES BY MOUTH TWICE A DAY May 29, 2022 Non-VA Document ed by: SHANTAL HANSON Document ed at: [facility] ORAL ACTIVE Jey HANSON 2021 [facility] FAMOTIDINE (famotidine ), 20 MG, TABLET, ORAL, [employer] 1000 ea. BOTTLE Active [id number] 2023 180 Pharmac y Data Transac tion Service Facilit y FAMOTIDINE 20MG TAB FAMOTIDI NE 20MG TAB Non-VA TAKE ONE TABLET BY MOUTH TWICE A DAY May 29, 2022 Non-VA Document ed by: SHANTAL HANSON Document ed at: [facility] ORAL ACTIVE Jey HANSON 2021 [facility] FUROSEMIDE (furosemide ), 40 MG, TABLET, ORAL, [facility], 1000 ea. BOTTLE Active [id number] 2023 180 Pharmac y Data Transac tion Service Facilit y FUROSEMIDE 40MG TAB FUROSEMI DE 40MG TAB Non-VA TAKE ONE TABLET BY MOUTH TWICE A DAY May 29, 2022 Non-VA Document ed by: SHANTAL HANSON Document ed at: [facility] ORAL ACTIVE Jey HANSON 2021 [facility] GABAPENTIN (gabapentin ), 400 MG, CAPSULE, ORAL, [employer] 500 ea. BOTTLE Active [id number] 2023 270 Pharmac y Data Transac tion Service Facilit y GABAPENTIN (gabapentin ), 400 MG, CAPSULE, ORAL, [employer] [facility], 500 ea. BOTTLE Active [id number] 2023 270 Pharmac y Data Transac tion Service Facilit y GABAPENTIN (gabapentin ), 400 MG, CAPSULE, ORAL, [employer]ACE, 500 ea. BOTTLE Cancele d [id number] : 2023 0 Pharmac y Data Transac [...] ORAL, AUROBINDO PHARM, 500 ea. BOTTLE Active [id number] 2023 120 Pharmac y Data Transac tion Service Facilit y LORAZEPAM (lorazepam) , 0.5 MG, TABLET, ORAL, LEADING PHARMA, 1000 ea. BOTTLE Active [id number] 2023 120 Pharmac y Data Transac tion Service Facilit y LORAZEPAM (lorazepam) , 0.5 MG, TABLET, ORAL, LEAD[employer] PHARMA, 1000 ea. BOTTLE Active [id number] 2023 120 Pharmac y Data Transac tion Service Facilit y LORAZEPAM (lorazepam) , 0.5 MG, TABLET, ORAL, LE[employer] PHARMA, 1000 ea. BOTTLE Active [id number] 2023 120 Pharmac y Data Transac tion Service Facilit y LORAZEPAM (lorazepam) , 0.5 MG, TABLET, ORAL, LEAD[employer] PHARMA, 500 ea. BOTTLE Active [id number] 2023 120 Pharmac y Data Transac tion Service Facilit y LORAZEPAM 0.5MG TAB LORAZEPA M 0.5MG TAB Non-VA TAKE ONE TABLET BY MOUTH THREE TIMES A DAY AND TAKE TWO TABLETS BY MOUTH AT BEDTIME Feb 05, 2023 Non-VA Document ed by: PIPO BARRETT Document ed at: [facility] ORAL ACTIVE Jagdish BARRETT 2022 [facility] MILK OF MAGNESIA MILK OF [...] ed by: PIPO BARRETT Document ed at: [facility] NASAL ACTIVE Jagdish BARRETT 2022 [facility] OXYCODONE HCL (OXYCODONE HCL), 10 MG, TABLET, ORAL, [employer] 100 ea. BOTTLE Active [id number] 2023 120 Pharmac y Data Transac tion Service Facilit y OXYCODONE HCL (OXYCODONE HCL), 10 MG, TABLET, ORAL, [employer] 100 ea. BOTTLE Active [id number] 2023 120 Pharmac y Data Transac tion Service Facilit y OXYCODONE HCL (OXYCODONE HCL), 10 MG, TABLET, ORAL, [employer] 100 ea. BOTTLE Active [id number] 2023 120 Pharmac y Data Transac tion Service Facilit y OXYCODONE HCL (OXYCODONE HCL), 10 MG, TABLET, ORAL, [employer] 100 ea. BOTTLE Active [id number] 2023 120 Pharmac y Data Transac tion Service Facilit y OXYCODONE HCL (OXYCODONE HCL), 10 MG, TABLET, ORAL, [employer] 100 ea. BOTTLE Active [id number] 2023 120 Pharmac y Data Transac tion Service Facilit y OXYCODONE HCL (OXYCODONE HCL), 10 MG, TABLET, ORAL, [employer] 100 ea. BOTTLE Active [id number] 2023 120 Pharmac y Data Transac tion Service Facilit y OXYCODONE HCL (OXYCODONE HCL), 10 MG, TABLET, ORAL, [employer] 100 ea. BOTTLE Active [id number] 2022 120 Pharmac y Data Transac tion Service Facilit y OXYCODONE HCL 5MG TAB OXYCODON E HCL 5MG TAB Non-VA TAKE TWO TABLETS BY MOUTH FOUR TIMES A DAY Feb 05, 2023 Non-VA Document ed by: PIPO BARRETT Document ed at: [facility] Jagdish BARRETT 2022 [facility] POTASSIUM CHLORIDE (potassium chloride), 10 MEQ, TAB ER PRT, ORAL, [employer] PHARMACE, 100 ea. BOTTLE Active [id number] 2023 180 Pharmac y Data Transac tion Service Facilit y POTASSIUM CHLORIDE (potassium chloride), 10 MEQ, TAB ER PRT, ORAL, [employer], 100 ea. BOTTLE Active [id number] 2023 180 Pharmac y Data Transac tion Service Facilit y POTASSIUM CHLORIDE (potassium chloride), 20 MEQ, TAB ER PRT, ORAL, [employer] PHARMACE, 100 ea. BOTTLE Active [id number] 2023 90 Pharmac y Data Transac [...] WHITLOCK&N/UNI LUIS, 30 g TUBE Cancele d [id number] : 2023 0 Pharmac y Data Transac tion Service Facilit y WARFARIN SODIUM (warfarin sodium), 5 MG, TABLET, ORAL, [employer] 1000 ea. BOTTLE Cancele d [id number] : 2022 0 Pharmac y Data Transac tion Service Facilit y WARFARIN SODIUM (WARFARIN SODIUM), 5 MG, TABLET, ORAL, [employer] [place], 1000 ea. BOTTLE Active [id number] 2023 25 Pharmac y Data Transac tion Service Facilit y WARFARIN SODIUM (WARFARIN SODIUM), 5 MG, TABLET, ORAL, [employer] [place], 1000 ea. BOTTLE Active [id number] 2023 12 Pharmac y Data Transac tion Service Facilit y WARFARIN SODIUM (WARFARIN SODIUM), 5 MG, TABLET, ORAL, [employer] [place], 1000 ea. BOTTLE Active [id number] 2023 40 Pharmac y Data Transac tion Service Facilit y WARFARIN SODIUM (WARFARIN SODIUM), 5 MG, TABLET, ORAL, [employer] [place], 1000 ea. BOTTLE Cancele d [id number] : 2022 0 Pharmac y Data Transac tion Service Facilit y WARFARIN SODIUM (warfarin sodium), 7.5 MG, TABLET, ORAL, [employer] [place], 100 ea. BOTTLE Active [id number] 2023 51 Pharmac y Data Transac tion Service Facilit y WARFARIN SODIUM (warfarin sodium), 7.5 MG, TABLET, ORAL, [employer] [place], 100 ea. BOTTLE Active [id number] 2023 78 Pharmac y Data Transac tion Service Facilit y WARFARIN TAB WARFARIN TAB Non-VA TAKE 5MG BY MOUTH SUN/THUR S AND TAKE 7.5MG BY MOUTH ALL OTHER DAYS Feb 05, 2023 Non-VA Document ed by: PIPO BARRETT Document ed at: [facility] ORAL ACTIVE Jagdish BARRETT 2022 [facility] Allergies, Adverse Reactions, Alerts Combined list of allergies from 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 It does not include entries that were removed or entered in error. Substance Category Reaction Severity Reaction type Status Date Reported Comments Source AMOXICILLIN Propensity to adverse reactions to drug (finding) Eruption active 2 [facility] METOLAZONE Propensity to adverse reactions to drug (finding) Itching active 2 [facility] MORPHINE Propensity to adverse reactions to drug (finding) Delirium active 2 [facility] PIPERACILLIN Propensity to adverse reactions to drug (finding) Eruption active 2 [facility] SULFA DRUGS Propensity to adverse reactions to drug (finding) Eruption active 2 [facility] TAZOBACTAM SODIUM Propensity to adverse reactions to drug (finding) Eruption active 2 [facility] Immunizations Combined list of available immunizations from the 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 Immunization Series Date Given Administered By Site Reaction Lot Number CVX Code Drug Behavioral Sciences Department Chair Status Comments Source COVID-19 ([employer]), MRNA, LNP-S, BIVALENT, PF, 30 MCG/0.3 ML DOSE 2021 300 complet ed [facility] INFLUENZA, ADJUVANTED, QUADRIVALENT, PF 2021 205 complet ed [facility] INFLUENZA, UNSPECIFIED FORMULATION 2021 88 complet ed 's recall [facility] TD (ADULT), 5 LF TETANUS TOXOID, PRESERVATIVE FREE, ADSORBED 2021 113 complet ed [facility] INFLUENZA, ADJUVANTED, QUADRIVALENT, PF 2020 205 complet ed [facility] INFLUENZA, UNSPECIFIED FORMULATION 2020 88 complet ed [facility] COVID-19 ([employer]), MRNA, LNP-S, PF, 30 MCG/0.3 ML DOSE 3 2020 208 complet ed [facility] COVID-19 ([employer]), MRNA, LNP-S, PF, 30 MCG/0.3 ML DOSE 2 2020 208 complet ed [facility] COVID-19 (PFIZER), MRNA, LNP-S, PF, 30 MCG/0.3 ML DOSE 1 2020 208 complet ed [facility] INFLUENZA, ADJUVANTED, QUADRIVALENT, PF 2019 205 complet ed [facility] INFLUENZA, ADJUVANTED, TRIVALENT, PF 2018 168 complet ed [facility] INFLUENZA, ADJUVANTED, TRIVALENT, PF 2017 168 complet ed [facility] INFLUENZA, HIGH-DOSE, TRIVALENT, PF 2016 135 complet ed [facility] INFLUENZA, ADJUVANTED, TRIVALENT, PF 2016 168 complet ed [facility] INFLUENZA, HIGH-DOSE, TRIVALENT, PF 2015 135 complet ed [facility] ZOSTER LIVE 2015 121 complet ed [facility] PNEUMOCOCCAL CONJUGATE PCV 13 2014 133 complet ed [facility] INFLUENZA, HIGH-DOSE, TRIVALENT, PF 2014 135 complet ed [facility] INFLUENZA, HIGH-DOSE, TRIVALENT, PF 2013 135 complet ed [facility] INFLUENZA, UNSPECIFIED FORMULATION 2013 88 complet ed [facility] INFLUENZA, SPLIT VIRUS, TRIVALENT, PRESERVATIVE 2012 141 complet ed [facility] ZOSTER LIVE 2012 121 complet ed [facility] INFLUENZA, SPLIT VIRUS, TRIVALENT, PRESERVATIVE 2011 141 complet ed [facility] INFLUENZA, SPLIT VIRUS, TRIVALENT, PF 2010 140 complet ed [facility] PNEUMOCOCCAL POLYSACCHARID E PPV23 2010 33 complet ed [facility] TDAP 2010 115 complet ed [facility] INFLUENZA, SPLIT VIRUS, TRIVALENT, PRESERVATIVE 2009 141 complet [facility] NOVEL INFLUENZA-H1N 1-09, ALL FORMULATIONS 2009 128 complet ed [facility] INFLUENZA, SPLIT VIRUS, TRIVALENT, PF 2008 140 complet ed [facility] PNEUMOCOCCAL POLYSACCHARID E PPV23 2008 33 complet ed [facility] INFLUENZA, SPLIT VIRUS, TRIVALENT, PRESERVATIVE 2008 141 complet ed [facility] INFLUENZA, SPLIT VIRUS, TRIVALENT, PRESERVATIVE 2007 141 complet ed [facility] INFLUENZA, SPLIT VIRUS, TRIVALENT, PRESERVATIVE 2005 141 complet ed [facility] INFLUENZA, SPLIT VIRUS, TRIVALENT, PRESERVATIVE 2004 141 complet ed [facility] PNEUMOCOCCAL POLYSACCHARID E PPV23 2004 33 complet ed [facility] INFLUENZA, SPLIT VIRUS, TRIVALENT, PRESERVATIVE 2003 141 complet ed [facility] Results Combined [...] 2023 03:10 PM Reporting Lab: [facility] [address] Performing Lab: [facility] [address] [place] [facility] CYSTATIN C WITH EGFR CYSTATIN C AND GLOMERULAR FILTRATION RATE BY CYSTATIN C-BASED FORMULA PANEL - SERUM OR PLASMA 53 60 02/13 L Specimen Type: PLASMA No comment entered. Ordering Provider: ANKUSH BOWMAN Report Released Date/Time: Feb 05, 2023 03:10 PM Reporting Lab: [facility] [address] Performing Lab: [facility] [address] [place] [facility] BASIC METABOLI C PANEL+MG CREATININE [MASS/VOLU ME] IN SERUM OR PLASMA 0.7 mg/dL 0.7 - 1.2 02/13 Specimen Type: PLASMA No comment entered. Ordering Provider: ANKUSH BOWMAN Report Released Date/Time: Feb 05, 2023 03:10 PM Reporting Lab: [facility] [address] Performing Lab: [facility] [address] [place] [facility] BASIC METABOLI C PANEL+MG UREA NITROGEN [MASS/VOLU ME] IN SERUM OR PLASMA 15 mg/dL 8 - 02/13 Specimen Type: PLASMA No comment entered. Ordering Provider: ANKUSH BOWMAN Report Released Date/Time: Feb 05, 2023 03:10 PM Reporting Lab: [facility] [address] Performing Lab: [facility] [address] [place] [facility] BASIC METABOLI C PANEL+MG GLUCOSE [MASS/VOLU ME] IN SERUM OR PLASMA 140 mg/dL 70 - 100 02/13 H Specimen Type: PLASMA No comment entered. Ordering Provider: ANKUSH BOWMAN Report Released Date/Time: Feb 05, 2023 03:10 PM Reporting Lab: [facility] [address] Performing Lab: [facility] [address] [place] [facility] BASIC METABOLI C PANEL+MG SODIUM [MOLES/VOL UME] IN SERUM OR PLASMA 135 mmol/L 136 - 145 02/13 L Specimen Type: PLASMA No comment entered. Ordering Provider: ANKUSH BOWMAN Report Released Date/Time: Feb 05, 2023 03:10 PM Reporting Lab: [facility] [address] Performing Lab: [facility] [address] [place] [facility] BASIC METABOLI C PANEL+MG POTASSIUM [MOLES/VOL UME] IN SERUM OR PLASMA 4.0 mmol/L 3.5 - 5.1 02/13 Specimen Type: PLASMA No comment entered. Ordering Provider: ANKUSH BOWMAN Report Released Date/Time: Feb 05, 2023 03:10 PM Reporting Lab: [facility] [address] Performing Lab: [facility] [address] [place] [facility] BASIC METABOLI C PANEL+MG CHLORIDE [MOLES/VOL UME] IN SERUM OR PLASMA 99 mmol/L 98 - 107 02/13 Specimen Type: PLASMA No comment entered. Ordering Provider: ANKUSH BOWMAN Report Released Date/Time: Feb 05, 2023 03:10 PM Reporting Lab: [facility] [address] Performing Lab: [facility] [address] [place] [facility] BASIC METABOLI C PANEL+MG CARBON DIOXIDE, TOTAL [MOLES/VOL UME] IN SERUM OR PLASMA 29 mmol/L 22 - 29 02/13 Specimen Type: PLASMA No comment entered. Ordering Provider: ANKUSH BOWMAN Report Released Date/Time: Feb 05, 2023 03:10 PM Reporting Lab: [facility] [address] Performing Lab: [facility] [address] [place] [facility] BASIC METABOLI C PANEL+MG CALCIUM [MASS/VOLU ME] IN SERUM OR PLASMA 9.2 mg/dL 8.4 - 10.2 02/13 Specimen Type: PLASMA No comment entered. Ordering Provider: ANKUSH BOWMAN Report Released Date/Time: Feb 05, 2023 03:10 PM Reporting Lab: [facility] [address] Performing Lab: [facility] [address] [place] [facility] BASIC METABOLI C PANEL+MG MAGNESIUM [MASS/VOLU ME] IN SERUM OR PLASMA 2.0 mg/dL 1.6 - 2.6 02/13 Specimen Type: PLASMA No comment entered. Ordering Provider: ANKUSH BOWMAN Report Released Date/Time: Feb 05, 2023 03:10 PM Reporting Lab: [facility] [address] Performing Lab: [facility] [address] [place] [facility] BASIC METABOLI C PANEL+MG ANION GAP IN SERUM OR PLASMA 7 mmol/L 5 - 15 02/13 Specimen Type: PLASMA No comment entered. Ordering Provider: ANKUSH BOWMAN Report Released Date/Time: Feb 05, 2023 03:10 PM Reporting Lab: [facility] [address] Performing Lab: [facility] [address] [place] [facility] BASIC METABOLI C PANEL+MG GLOMERULAR FILTRATION RATE/1.73 SQ M.PREDICTE D [VOLUME RATE/AREA] IN SERUM, PLASMA OR BLOOD BY CREATININE -BASED FORMULA (CKD-EPI) >90 60 02/13 Specimen Type: PLASMA No comment entered. Ordering Provider: ANKUSH BOWMAN Report Released Date/Time: Feb 05, 2023 03:10 PM Reporting Lab: [facility] [address] Performing Lab: [facility] [address] [place] [facility] URINALYS IS COLOR OF URINE YELLOW 10/08 Specimen Type: URINE No comment entered. Ordering Provider: ANKUSH BOWMAN Report Released Date/Time: Sep 24, 2022 01:55 PM Reporting Lab: [facility] [address] Performing Lab: [facility] [address] [place] [facility] URINALYS IS SPECIFIC GRAVITY OF URINE 1.023 1.003 - 1.035 10/08 Specimen Type: URINE No comment entered. Ordering Provider: ANKUSH BOWMAN Report Released Date/Time: Sep 24, 2022 01:55 PM Reporting Lab: [facility] [id number] Performing Lab: [facility] [id number] [place] [facility] URINALYS IS BILIRUBIN. TOTAL [PRESENCE] IN URINE BY TEST STRIP NEGATIVE 10/08 Specimen Type: URINE No comment entered. Ordering Provider: ANKUSH BOWMAN Report Released Date/Time: Sep 24, 2022 01:55 PM Reporting Lab: [facility] [id number] Performing Lab: [facility] [facility] [address] [place] [facility] URINALYS IS KETONES [MASS/VOLU ME] IN URINE BY TEST STRIP NEGATIVE 10/08 Specimen Type: URINE No comment entered. Ordering Provider: ANKUSH BOWMAN Report Released Date/Time: Sep 24, 2022 01:55 PM Reporting Lab: [facility] [address] Performing Lab: [facility] [address] [place] [facility] URINALYS IS GLUCOSE [MASS/VOLU ME] IN URINE BY TEST STRIP NEGATIVE mg/dL <30 - 30 10/08 Specimen Type: URINE No comment entered. Ordering Provider: ANKUSH BOWMAN Report Released Date/Time: Sep 24, 2022 01:55 PM Reporting Lab: [facility] [address] Performing Lab: [facility] [address] [place] [facility] URINALYS IS PROTEIN [MASS/VOLU ME] IN URINE BY TEST STRIP 30 mg/dL <20 - 20 10/08 Specimen Type: URINE No comment entered. Ordering Provider: ANKUSH BOWMAN Report Released Date/Time: Sep 24, 2022 01:55 PM Reporting Lab: [facility] [address] Performing Lab: [facility] [address] [place] [facility] URINALYS IS PH OF URINE BY TEST STRIP 7.5 5.0 - 8.0 10/08 Specimen Type: URINE No comment entered. Ordering Provider: ANKUSH BOWMAN Report Released Date/Time: Sep 24, 2022 01:55 PM Reporting Lab: [facility] [address] Performing Lab: [facility] [address] [place] [facility] URINALYS IS LEUKOCYTES [#/AREA] IN URINE SEDIMENT BY MICROSCOPY HIGH POWER FIELD >180/[HP F] 0 - 7 10/08 H Specimen Type: URINE No comment entered. Ordering Provider: ANKUSH BOWMAN Report Released Date/Time: Sep 24, 2022 01:55 PM Reporting Lab: [facility] [address] Performing Lab: [facility] [address] [place] [facility] URINALYS IS BACTERIA [PRESENCE] IN URINE SEDIMENT BY LIGHT MICROSCOPY MANY 10/08 Specimen Type: URINE No comment entered. Ordering Provider: ANKUSH BOWMAN Report Released Date/Time: Sep 24, 2022 01:55 PM Reporting Lab: [facility] [address] Performing Lab: [facility] [address] [place] [facility] URINALYS IS ERYTHROCYT ES [#/AREA] IN URINE SEDIMENT BY MICROSCOPY HIGH POWER FIELD 33 /[HPF] 0 - 3 10/08 H Specimen Type: URINE No comment entered. Ordering Provider: ANKUSH BOWMAN Report Released Date/Time: Sep 24, 2022 01:55 PM Reporting Lab: [facility] [address] Performing Lab: [facility] [address] [place] [facility] URINALYS IS APPEARANCE OF URINE EX.TURBI D 10/08 Specimen Type: URINE No comment entered. Ordering Provider: ANKUSH BOWMAN Report Released Date/Time: Sep 24, 2022 01:55 PM Reporting Lab: [facility] [address] Performing Lab: [facility] [address] [place] [facility] URINALYS IS EPITHELIAL CELLS.SQUA MOUS [#/AREA] IN URINE SEDIMENT BY MICROSCOPY HIGH POWER FIELD 1 /[HPF] 10/08 Specimen Type: URINE No comment entered. Ordering Provider: ANKUSH BOWMAN Report Released Date/Time: Sep 24, 2022 01:55 PM Reporting Lab: [facility] [address] Performing Lab: [facility] [address] [place] [facility] URINALYS IS HEMOGLOBIN [PRESENCE] IN URINE BY TEST STRIP 1+ 10/08 Specimen Type: URINE No comment entered. Ordering Provider: ANKUSH BOWMAN Report Released Date/Time: Sep 24, 2022 01:55 PM Reporting Lab: [facility] [address] Performing Lab: [facility] [address] [place] [facility] URINALYS IS NITRITE [PRESENCE] IN URINE BY TEST STRIP NEGATIVE 10/08 Specimen Type: URINE No comment entered. Ordering Provider: ANKUSH BOWMAN Report Released Date/Time: Sep 24, 2022 01:55 PM Reporting Lab: [facility] [address] Performing Lab: [facility] [address] [place] [facility] URINALYS IS LEUKOCYTE CLUMPS [#/VOLUME] IN URINE BY AUTOMATED COUNT PRESENT 10/08 Specimen Type: URINE No comment entered. Ordering Provider: ANKUSH BOWMAN Report Released Date/Time: Sep 24, 2022 01:55 PM Reporting Lab: [facility] [address] Performing Lab: [facility] [address] [place] [facility] URINALYS IS LEUKOCYTE ESTERASE [PRESENCE] IN URINE BY TEST STRIP 500 10/08 Specimen Type: URINE No comment entered. Ordering Provider: ANKUSH BOWMAN Report Released Date/Time: Sep 24, 2022 01:55 PM Reporting Lab: [facility] [address] Performing Lab: [facility] [address] [place] [facility] ALBUMIN ALBUMIN [MASS/VOLU ME] IN SERUM OR PLASMA 4.2 g/dL 3.5 - 5.2 10/08 Specimen Type: PLASMA No comment entered. Ordering Provider: ANKUSH BOWMAN Report Released Date/Time: Sep 24, 2022 01:55 PM Reporting Lab: [facility] [address] Performing Lab: [facility] [address] [place] [facility] PRE-ALBU MIN PREALBUMIN [MASS/VOLU ME] IN SERUM OR PLASMA 28.4 mg/dL 14.0 - 45.0 10/08 Specimen Type: SERUM No comment entered. Ordering Provider: ANKUSH BOWMAN Report Released Date/Time: Sep 24, 2022 01:55 PM Reporting Lab: [facility] [address] Performing Lab: [facility] [address] [place] [facility] CBC & DIFF LEUKOCYTES [#/VOLUME] IN BLOOD BY AUTOMATED COUNT 7.32 10*3/uL 4.0 - 11.0 10/08 Specimen Type: BLOOD Comment: Automated Differentia l Performed Ordering Provider: ANKUSH BOWMAN Report Released Date/Time: Sep 24, 2022 01:55 PM Reporting Lab: [facility] [address] Performing Lab: [facility] [address] [place] [facility] CBC & DIFF ERYTHROCYT ES [#/VOLUME] IN BLOOD BY AUTOMATED COUNT 4.80 10*6/uL 4.6 - 6.2 10/08 Specimen Type: BLOOD Comment: Automated Differentia l Performed Ordering Provider: ANKUSH BOWMAN Report Released Date/Time: Sep 24, 2022 01:55 PM Reporting Lab: [facility] [address] Performing Lab: [facility] [address] [place] [facility] CBC & DIFF HEMOGLOBIN [MASS/VOLU ME] IN BLOOD 14.7 g/dL 13.5 - 17.9 10/08 Specimen Type: BLOOD Comment: Automated Differentia l Performed Ordering Provider: ANKUSH BOWMAN Report Released Date/Time: Sep 24, 2022 01:55 PM Reporting Lab: [facility] [address] Performing Lab: [facility] [address] [place] [facility] CBC & DIFF HEMATOCRIT [VOLUME FRACTION] OF BLOOD BY AUTOMATED COUNT 44.2 41 - 54 10/08 Specimen Type: BLOOD Comment: Automated Differentia l Performed Ordering Provider: ANKUSH BOWMAN Report Released Date/Time: Sep 24, 2022 01:55 PM Reporting Lab: [facility] [address] Performing Lab: [facility] [address] [place] [facility] CBC & DIFF MCV [ENTITIC VOLUME] BY AUTOMATED COUNT 92.1 fL 80 - 100 10/08 Specimen Type: BLOOD Comment: Automated Differentia l Performed Ordering Provider: ANKUSH BOWMAN Report Released Date/Time: Sep 24, 2022 01:55 PM Reporting Lab: [facility] [address] Performing Lab: [facility] [address] [place] [facility] CBC & DIFF MCH [ENTITIC MASS] BY AUTOMATED COUNT 30.6 pg 27 - 33 10/08 Specimen Type: BLOOD Comment: Automated Differentia l Performed Ordering Provider: ANKUSH BOWMAN Report Released Date/Time: Sep 24, 2022 01:55 PM Reporting Lab: [facility] [address] Performing Lab: [facility] [address] [place] [facility] CBC & DIFF MCHC [MASS/VOLU ME] BY AUTOMATED COUNT 33.3 g/dL 32.0 - 37.5 10/08 Specimen Type: BLOOD Comment: Automated Differentia l Performed Ordering Provider: ANKUSH BOWMAN Report Released Date/Time: Sep 24, 2022 01:55 PM Reporting Lab: [facility] [address] Performing Lab: [facility] [address] [place] [facility] CBC & DIFF PLATELETS [#/VOLUME] IN BLOOD BY AUTOMATED COUNT 144 10*3/uL 150 - 400 10/08 L Specimen Type: BLOOD Comment: Automated Differentia l Performed Ordering Provider: ANKUSH BOWMAN Report Released Date/Time: Sep 24, 2022 01:55 PM Reporting Lab: [facility] [address] Performing Lab: [facility] [address] [place] [facility] CBC & DIFF PLATELET MEAN VOLUME [ENTITIC VOLUME] IN BLOOD BY AUTOMATED COUNT 10.8 fL 7.4 - 10.4 10/08 H Specimen Type: BLOOD Comment: Automated Differentia l Performed Ordering Provider: ANKUSH BOWMAN Report Released Date/Time: Sep 24, 2022 01:55 PM Reporting Lab: [facility] [address] Performing Lab: [facility] [address] [place] [facility] CBC & DIFF NEUTROPHIL S/100 LEUKOCYTES IN BLOOD BY MANUAL COUNT 55.5 10/08 Specimen Type: BLOOD Comment: Automated Differentia l Performed Ordering Provider: ANKUSH BOWMAN Report Released Date/Time: Sep 24, 2022 01:55 PM Reporting Lab: [facility] [address] Performing Lab: [facility] [address] [place] [facility] CBC & DIFF LYMPHOCYTE S/100 LEUKOCYTES IN BLOOD BY MANUAL COUNT 31.4 10/08 Specimen Type: BLOOD Comment: Automated Differentia l Performed Ordering Provider: ANKUHS BOWMAN Report Released Date/Time: Sep 24, 2022 01:55 PM Reporting Lab: [facility] [address] Performing Lab: [facility] [address] [place] [facility] CBC & DIFF MONOCYTES/ 100 LEUKOCYTES IN BLOOD BY AUTOMATED COUNT 10.2 10/08 Specimen Type: BLOOD Comment: Automated Differentia l Performed Ordering Provider: ANKUSH BOWMAN Report Released Date/Time: Sep 24, 2022 01:55 PM Reporting Lab: [facility] [address] Performing Lab: [facility] [address] [place] [facility] CBC & DIFF EOSINOPHIL S/100 LEUKOCYTES IN BLOOD BY AUTOMATED COUNT 2.2 10/08 Specimen Type: BLOOD Comment: Automated Differentia l Performed Ordering Provider: ANKUSH BOWMAN Report Released Date/Time: Sep 24, 2022 01:55 PM Reporting Lab: [facility] [address] Performing Lab: [facility] [address] [place] [facility] CBC & DIFF BASOPHILS/ 100 LEUKOCYTES IN BLOOD BY MANUAL COUNT 0.4 10/08 Specimen Type: BLOOD Comment: Automated Differentia l Performed Ordering Provider: ANKUSH BOWMAN Report Released Date/Time: Sep 24, 2022 01:55 PM Reporting Lab: [facility] [address] Performing Lab: [facility] [address] [place] [facility] CBC & DIFF ERYTHROCYT E DISTRIBUTI ON WIDTH [RATIO] BY AUTOMATED COUNT 15.9 11.5 - 14.5 10/08 H Specimen Type: BLOOD Comment: Automated Differentia l Performed Ordering Provider: ANKUSH BOWMAN Report Released Date/Time: Sep 24, 2022 01:55 PM Reporting Lab: [facility] [address] Performing Lab: [facility] [address] [place] [facility] CBC & DIFF LYMPHOCYTE S [#/VOLUME] IN BLOOD BY AUTOMATED COUNT 2.30 10*3/uL 1.0 - 4.0 10/08 Specimen Type: BLOOD Comment: Automated Differentia l Performed Ordering Provider: ANKUSH BOWMAN Report Released Date/Time: Sep 24, 2022 01:55 PM Reporting Lab: [facility] [address] Performing Lab: [facility] [address] [place] [facility] CBC & DIFF MONOCYTES [#/VOLUME] IN BLOOD BY AUTOMATED COUNT 0.75 10*3/uL 0.1 - 1.0 10/08 Specimen Type: BLOOD Comment: Automated Differentia l Performed Ordering Provider: ANKUSH BOWMAN Report Released Date/Time: Sep 24, 2022 01:55 PM Reporting Lab: [facility] [address] Performing Lab: [facility] [address] [place] [facility] CBC & DIFF NEUTROPHIL S [#/VOLUME] IN BLOOD BY AUTOMATED COUNT 4.06 10*3/uL 2.0 - 7.7 10/08 Specimen Type: BLOOD Comment: Automated Differentia l Performed Ordering Provider: ANKUSH BOWMAN Report Released Date/Time: Sep 24, 2022 01:55 PM Reporting Lab: [facility] [address] Performing Lab: [facility] [address] [place] [facility] CBC & DIFF EOSINOPHIL S [#/VOLUME] IN BLOOD BY AUTOMATED COUNT 0.16 10*3/uL 0 - 0.5 10/08 Specimen Type: BLOOD Comment: Automated Differentia l Performed Ordering Provider: ANKUSH BOWMAN Report Released Date/Time: Sep 24, 2022 01:55 PM Reporting Lab: [facility] [address] Performing Lab: [facility] [address] [place] [facility] CBC & DIFF BASOPHILS [#/VOLUME] IN BLOOD BY AUTOMATED COUNT 0.03 10*3/uL 0 - 0.2 10/08 Specimen Type: BLOOD Comment: Automated Differentia l Performed Ordering Provider: ANKUSH BOWMAN Report Released Date/Time: Sep 24, 2022 01:55 PM Reporting Lab: [facility] [address] Performing Lab: [facility] [address] [place] [facility] CBC & DIFF IG(META,MY MALACHI,PRO) 0.3 10/08 Specimen Type: BLOOD Comment: Automated Differentia l Performed Ordering Provider: ANKUSH BOWMAN Report Released Date/Time: Sep 24, 2022 01:55 PM Reporting Lab: [facility] [address] Performing Lab: [facility] [address] [place] [facility] CBC & DIFF IMMATURE GRANULOCYT ES [PRESENCE] IN BLOOD BY AUTOMATED COUNT 0.02 10*3/uL 0 - 0.1 10/08 Specimen Type: BLOOD Comment: Automated Differentia l Performed Ordering Provider: ANKUSH BOWMAN Report Released Date/Time: Sep 24, 2022 01:55 PM Reporting Lab: [facility] [address] Performing Lab: [facility] [address] [place] [facility] COMPREHE NSIVE METABOLI C PANEL+MG CREATININE [MASS/VOLU ME] IN SERUM OR PLASMA 0.7 mg/dL 0.7 - 1.2 10/08 Specimen Type: PLASMA No comment entered. Ordering Provider: ANKUSH BOWMAN Report Released Date/Time: Sep 24, 2022 01:55 PM Reporting Lab: [facility] [address] Performing Lab: [facility] [address] [place] [facility] COMPREHE NSIVE METABOLI C PANEL+MG UREA NITROGEN [MASS/VOLU ME] IN SERUM OR PLASMA 16 mg/dL 8 - 26 10/08 Specimen Type: PLASMA No comment entered. Ordering Provider: ANKUSH BOWMAN Report Released Date/Time: Sep 24, 2022 01:55 PM Reporting Lab: [facility] [address] Performing Lab: [facility] [address] [place] [facility] COMPREHE NSIVE METABOLI C PANEL+MG GLUCOSE [MASS/VOLU ME] IN SERUM OR PLASMA 94 mg/dL 70 - 100 10/08 Specimen Type: PLASMA No comment entered. Ordering Provider: ANKUSH BOWMAN Report Released Date/Time: Sep 24, 2022 01:55 PM Reporting Lab: [facility] [address] Performing Lab: [facility] [address] [place] [facility] COMPREHE NSIVE METABOLI C PANEL+MG SODIUM [MOLES/VOL UME] IN SERUM OR PLASMA 138 mmol/L 136 - 145 10/08 Specimen Type: PLASMA No comment entered. Ordering Provider: ANKUSH BOWMAN Report Released Date/Time: Sep 24, 2022 01:55 PM Reporting Lab: [facility] [address] Performing Lab: [facility] [address] [place] [facility] COMPREHE NSIVE METABOLI C PANEL+MG POTASSIUM [MOLES/VOL UME] IN SERUM OR PLASMA 3.9 mmol/L 3.5 - 5.1 10/08 Specimen Type: PLASMA No comment entered. Ordering Provider: ANKUSH BOWMAN Report Released Date/Time: Sep 24, 2022 01:55 PM Reporting Lab: [facility] [address] Performing Lab: [facility] [address] [place] [facility] COMPREHE NSIVE METABOLI C PANEL+MG CHLORIDE [MOLES/VOL UME] IN SERUM OR PLASMA 101 mmol/L 98 - 107 10/08 Specimen Type: PLASMA No comment entered. Ordering Provider: ANKUSH BOWMAN Report Released Date/Time: Sep 24, 2022 01:55 PM Reporting Lab: [facility] [address] Performing Lab: [facility] [address] [place] [facility] COMPREHE NSIVE METABOLI C PANEL+MG CARBON DIOXIDE, TOTAL [MOLES/VOL UME] IN SERUM OR PLASMA 28 mmol/L 22 - 29 10/08 Specimen Type: PLASMA No comment entered. Ordering Provider: ANKUSH BOWMAN Report Released Date/Time: Sep 24, 2022 01:55 PM Reporting Lab: [facility] [address] Performing Lab: [facility] [address] [place] [facility] COMPREHE NSIVE METABOLI C PANEL+MG CALCIUM [MASS/VOLU ME] IN SERUM OR PLASMA 9.7 mg/dL 8.4 - 10.2 10/08 Specimen Type: PLASMA No comment entered. Ordering Provider: ANKUSH BOWMAN Report Released Date/Time: Sep 24, 2022 01:55 PM Reporting Lab: [facility] [address] Performing Lab: [facility] [address] [place] [facility] COMPREHE NSIVE METABOLI C PANEL+MG PROTEIN [MASS/VOLU ME] IN SERUM OR PLASMA 7.6 g/dL 6.0 - 8.3 10/08 Specimen Type: PLASMA No comment entered. Ordering Provider: ANKUSH BOWMAN Report Released Date/Time: Sep 24, 2022 01:55 PM Reporting Lab: [facility] [address] Performing Lab: [facility] [address] [place] [facility] COMPREHE NSIVE METABOLI C PANEL+MG ALBUMIN [MASS/VOLU ME] IN SERUM OR PLASMA 4.2 g/dL 3.5 - 5.2 10/08 Specimen Type: PLASMA No comment entered. Ordering Provider: ANKUSH BOWMAN Report Released Date/Time: Sep 24, 2022 01:55 PM Reporting Lab: [facility] [address] Performing Lab: [facility] [address] [place] [facility] COMPREHE NSIVE METABOLI C PANEL+MG BILIRUBIN. TOTAL [MASS/VOLU ME] IN SERUM OR PLASMA 0.6 mg/dL 0.2 - 1.2 10/08 Specimen Type: PLASMA No comment entered. Ordering Provider: ANKUSH BOWMAN Report Released Date/Time: Sep 24, 2022 01:55 PM Reporting Lab: [facility] [address] Performing Lab: [facility] [address] [place] [facility] COMPREHE NSIVE METABOLI C PANEL+MG MAGNESIUM [MASS/VOLU ME] IN SERUM OR PLASMA 2.1 mg/dL 1.6 - 2.6 10/08 Specimen Type: PLASMA No comment entered. Ordering Provider: ANKUSH BOWMAN Report Released Date/Time: Sep 24, 2022 01:55 PM Reporting Lab: [facility] [address] Performing Lab: [facility] [address] [place] [facility] COMPREHE NSIVE METABOLI C PANEL+MG ANION GAP IN SERUM OR PLASMA 9 mmol/L 5 - 15 10/08 Specimen Type: PLASMA No comment entered. Ordering Provider: ANKUSH BOWMAN Report Released Date/Time: Sep 24, 2022 01:55 PM Reporting Lab: [facility] [address] Performing Lab: [facility] [address] [place] [facility] COMPREHE NSIVE METABOLI C PANEL+MG ALKALINE PHOSPHATAS E [ENZYMATIC ACTIVITY/V OLUME] IN SERUM OR PLASMA 96 U/L 40 - 150 10/08 Specimen Type: PLASMA No comment entered. Ordering Provider: ANKUSH BOWMAN Report Released Date/Time: Sep 24, 2022 01:55 PM Reporting Lab: [facility] [address] Performing Lab: [facility] [address] [place] [facility] COMPREHE NSIVE METABOLI C PANEL+MG ALANINE AMINOTRANS FERASE [ENZYMATIC ACTIVITY/V OLUME] IN SERUM OR PLASMA 29 U/L <55 - 55 10/08 Specimen Type: PLASMA No comment entered. Ordering Provider: ANKUSH BOWMAN Report Released Date/Time: Sep 24, 2022 01:55 PM Reporting Lab: [facility] [address] Performing Lab: [facility] [address] [place] [facility] COMPREHE NSIVE METABOLI C PANEL+MG ASPARTATE AMINOTRANS FERASE [ENZYMATIC ACTIVITY/V OLUME] IN SERUM OR PLASMA 22 U/L <34 - 34 10/08 Specimen Type: PLASMA No comment entered. Ordering Provider: ANKUSH BOWMAN Report Released Date/Time: Sep 24, 2022 01:55 PM Reporting Lab: [facility] [address] Performing Lab: [facility] [address] [place] [facility] COMPREHE NSIVE METABOLI C PANEL+MG GLOMERULAR FILTRATION RATE/1.73 SQ M.PREDICTE D [VOLUME RATE/AREA] IN SERUM, PLASMA OR BLOOD BY CREATININE -BASED FORMULA (CKD-EPI) >90 60 10/08 Specimen Type: PLASMA No comment entered. Ordering Provider: ANKUSH BOWMAN Report Released Date/Time: Sep 24, 2022 01:55 PM Reporting Lab: [facility] [address] Performing Lab: [facility] [address] [place] [facility] CYSTATIN C WITH EGFR CYSTATIN C [MASS/VOLU ME] IN SERUM OR PLASMA 1.38 mg/L 0.51 - 1.05 11/28 /2022 H Specimen Type: PLASMA No comment entered. Ordering Provider: ANKUSH BOWMAN Report Released Date/Time: Sep 24, 2022 01:55 PM Reporting Lab: [facility] [address] Performing Lab: [facility] [address] [place] [facility] CYSTATIN C WITH EGFR CYSTATIN C AND GLOMERULAR FILTRATION RATE BY CYSTATIN-B ASED FORMULA PANEL - SERUM OR PLASMA 48 60 10/08 L Specimen Type: PLASMA No comment entered. Ordering Provider: ANKUSH BOWMAN Report Released Date/Time: Sep 24, 2022 01:55 PM Reporting Lab: [facility] [address] Performing Lab: [facility] [address] [place] [facility] VIT D 25-OH,TO ZAMZAM 25-HYDROXY VITAMIN D3 [MASS/VOLU ME] IN SERUM OR PLASMA 54 ng/mL 12 - 50 10/08 H Specimen Type: SERUM No comment entered. Ordering Provider: ANKSUH BOWMAN Report Released Date/Time: Sep 24, 2022 01:55 PM Reporting Lab: [facility] [address] Performing Lab: [facility] [address] [place] [facility] Encounters Combined list of: 1) Encounters from [facility] facilities going back up to thelast 18 months. 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 Location Location Details Encounter Type Encounter Number Reason For Visit Attending Provider ADM Date DC Date Status Disposition Source [place] [facility] DIABETIC MANAGEMENT PROGRAM, [id number] Diagnos is: ICD-10- CM G82.20 Paraple mary kay, unspeci fied
TIGIST BASSETT A 01/30 [facility] Outpatient Encounter [id number] 02/05 [facility] IS [facility] MTMS BY PHARM ADDL 15 MIN [id number] Diagnos is: ICD-10- CM G82.20 Paraple mary kay, unspeci fied
MANPREET BARRETT 02/05 [facility] OT EVAL LOW COMPLEX 30 MIN [id number] Diagnos is: ICD-10- CM Z73.6 Limitat ion of activit ies due to disabil ity<br/ > Bryn PARDO 02/05 [facility] OFF/OP EST MAY X REQ PHY/QHP [id number] Diagnos is: ICD-10- CM G82.20 Paraple mary kay, unspeci fied
ROSARIAJOSUÉ J 02/05 [facility] PSYCH DIAGNOSTIC EVALUATION [id number] Diagnos is: ICD-10- CM F32.A Depress ion, unspeci fied
BINU GAMEZ 02/05 [facility] IS [facility] OFFICE O/P EST MOD 30-39 MIN [id number] Diagnos is: ICD-10- CM G82.20 Paraple mary kay, unspeci fied
RYDERGINETTE,ME FORD K 02/05 [facility] PSYCH DIAGNOSTIC EVALUATION [id number] Diagnos is: ICD-10- CM G82.20 Paraple mary kay, unspeci fied
CHIRCOP,AN DESIRE J 02/05 [facility] MEDICAL NUTRITION INDIV IN [phone] Diagnos is: ICD-10- CM Z71.3 Dietary rehabilitation services counselor ing and surveil payal<b r/> Katia ARCHER 02/05 [facility] ENTEROSTOM AL THERAPY BY A RE [id number] Diagnos is: ICD-10- CM Z43.3 Encount er for attenti on to colosto my
VIOLA YOON 02/08 [facility] OFFICE O/P EST HI 40-54 MIN [id number] Diagnos is: ICD-10- CM G82.20 Paraple mary kay, unspeci fied
ME LOGAN BOWMAN 02/13 [facility] [place] [facility] WHEELCHAIR MNGMENT TRAINING [id number] Diagnos is: ICD-10- CM Z73.6 Limitat ion of activit ies due to disabil ity<br/ > BOUSLOG,RY AN P 02/13 [facility] [place] [facility] Outpatient Encounter [id number] 02/19 [facility] HC PRO PHONE CALL 11-20 MIN [id number] Diagnos is: ICD-10- CM Z73.6 Limitat ion of activit ies due to disabil ity<br/ > BOUSLOG,RY AN P 04/23 [facility] Outpatient Encounter [id number] 04/24 [facility] Outpatient Encounter [id number] 05/24 [facility] OFF/OP EST MARCH X REQ PHY/QHP [id number] Diagnos is: ICD-10- CM G82.20 Paraple mary kay, unspeci fied
VIOLA YOON NDJagdish 05/28 [facility] WHEELCHAIR MNGMENT TRAINING [id number] Diagnos is: ICD-10- CM Z73.6 Limitat ion of activit ies due to disabil ity<br/ > BOUSLOG,RY AN P 06/10 [facility] [place] [facility] Outpatient Encounter [id number] 10/28 [place] [facility] [place] [facility] Outpatient Encounter [id number] 11/20 [facility] Outpatient Encounter [id number] 05/12 [facility] Social History Combined list of available smoking, tobacco, and other social history from 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 Social History Type Response Date Comment Sourc e Tobacco smoking status [facility] NEVER USED 05/28/20 22 [facility] This section is an empty social history section. DoD Plan of Care List of future care activities from Department of 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 Additional future care activities may be listed in the Assessment and Plan section. Date/Time Care Activity Care Activity Detail Facili ty 07/30/2024 AMBULATORY - REHAB MEDICINE AMBULATORY - REHAB MEDICINE [facility] Advance Directives List of completed, amended, or rescinded Advance Directives on record at Department of 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 An actual copy of the Directive is not included. Date Advance Directive Provider Source 02/05/2023 ADVANCE DIRECTIVE DISCUSSION GUSTAVO ABAD [facility]
--- OUTSIDE RECORDS SUMMARY | 2024-07-20 12:43 | XMS_ITS | Encounter Summary ---
Author Name [facility] Organization [facility] Address [address] [place] [address] Care Team Providers Care Parent Partner Name Role Phone SHANTAL HANSON Primary Care [...] PART B Jul 12, 2004 PART B [id number] [phone] MIKAYLAF RED PATIENT MEDICARE (WNR) MEDICARE (M) PART A Oct 11, 2002 PART A [id number] PP47 [phone] Kasie DEGROOT RED PATIENT Selected Encounter This section includes the information on record at ID for the Encounter. Date/Time Encounter Type Encounter Description Reason Pro vider Source May 12, 2024 02:14 PM Outpatient Encounter PROS AND SENS AIDS IHE Encounter Template Text not used by ID Plan of Treatment: Future Appointments (+ 6 months) and Future Tests (+/- 45 days) The Plan of Treatment section includes future care activities for the patient from all [facility]. This section includes future appointments and future orders which are active, pending or scheduled. Future Appointments This section includes appointments that were scheduled to occur 6 months from the date of the Encounter, up to a maximum of 20 appointments. The data comes from all [facility]. Appointment Date/Time Appointment Type Appointme nt Facility Name Jul 30, 2024 01:00 PM AMBULATORY - REHAB MEDICIN E [facility] Active, Pending, and Scheduled Orders This section includes a listing of several types of active, pending, and scheduled orders, including clinic medications orders, diagnostic test orders, procedure orders and consult orders; where the start date of the order is 45 days before the date of the Encounter or 45 days after the date of theEncounter. The data comes from all [facility]. Test Date/Time Test Type Test Details Facility Name May 12, 2024 01:59 PM Consult Order SCI/D WHEE LCHAIR SEATING/POSITIONING OUTPT Cons [employer] Attendant's Choice [facility] Advance Directives: All historical and current Section Date Range: From patient's date of to the date document was created. This section includes ALL of a patient's completed or amended ID Advance and Rescinded Directives. The entries below indicate that a directive exists for the patient, but an actual copy is not included with this document. The data comes from all [facility]. Date Advance Directives Provider Source Feb 05, 2023 ADVANCE DIRECTIVE DISCUSSION GUSTAVO ABAD [facility] Encounter Notes: All associated encounter notes This [...] Ot to nikita. /el/ [facility] [employer] Signed: 05/12/2024 14:20 Receipt Acknowledged By: 05/12/2024 14:31 /el/ LATISHA BUTT, PT, DPT, NCS, ATP PHYSICAL THERAPIST [facility]
--- OUTSIDE RECORDS SUMMARY | 2024-07-20 12:43 | XMS_ITS | Encounter Summary ---
Author Name [facility] [place] Organization [place] Address [address] [place] [address] Care Team Providers Care Senior Electrical Project Manager Name Role Phone SHANTAL HANSON Primary Care [...] PART B Jul 12, 2004 PART B [id number] PP47 [phone] MIKAYLA,F RED PATIENT MEDICARE (WNR) MEDICARE (M) PART A Oct 11, 2002 PART A [id number] PP47 [phone] Kasie DEGROOT RED PATIENT Selected Encounter This [...] 05, 2023 ADVANCE DIRECTIVE DISCUSSION GUSTAVO ABAD [facility] Encounter Notes: All associated encounter notes This section contains the clinical notes associated to the Encounter. Date/Time Encounter Note(s) Provider Source Oct 28, 2023 02:46 PM ADDENDUM: LOCAL TITLE: Addendum STANDARD TITLE: ADDENDUM DATE OF NOTE: OCT 28, 2023@14:46:05 ENTRY DATE: OCT 28, 2023@14:46:07 AUTHOR: DENNIS RETANA COSIGNER: URGENCY: STATUS: COMPLETED Received this at [facility], forwarding to [facility] nurse as he sees them. Prescription scanned into this note. /el/ DENNIS RETANA LPN Co-Dairy Processing Supervisor Signed: 10/28/2023 14:48 Receipt Acknowledged By: 12/24/2023 07:40 /el/ SPENSER YOON GLOBAL SECURITY ARCHITECT --- Original Document --- 10/28/23 PHARMACY NON [place] CARE MEDICATIONS: [facility] Outpatient Pharmacy RECEIVED electronic prescription(s) (eRX(s)) from NON-VA Provider:SHANEKA HAHN Date eRX received: Oct [place] not eligible to receive non-VA prescription(s) at this time. Prescription(s) REDIRECTED via FAX to: [X][facility] (Dual) Care [ ]Other: [ ] [facility] (Mkto) [ ] [facility] [ ] [facility] [ ] [facility] eRx Reference #:[id number] eRx Prescription Information: eRx Drug: Transparent Mepitel Film eRx Qty: 20 eRx Refills: 2 eRx Days Supply: eRx Sig: As directed, following wound care orders /silvano CASH PHARMACIST Signed: 10/28/2023 08:38 DENNIS RETANA [facility] Oct 28, 2023 08:37 AM PHARMACY NOTE: LOCAL TITLE: PHARMACY NON VA CARE MEDICATIONS STANDARD TITLE: PHARMACY NOTE DATE OF NOTE: OCT 28, 2023@08:37 ENTRY DATE: OCT 28, 2023@08:37:30 AUTHOR: CASA CASH EXP COSIGNER: URGENCY: STATUS: COMPLETED PHARMACY NON VA CARE MEDICATIONS Has ADDENDA [facility] Outpatient Pharmacy RECEIVED electronic prescription(s) (eRX(s)) from NON-VA Provider:SHANEKA HAHN Date eRX received: Oct not eligible to receive non-VA prescription(s) at this time. Prescription(s) REDIRECTED via FAX to: [X][facility] (Dual) Care [ ]Other: [ ] [facility] (to) [ ] [facility] [ ] [facility] [ ] [facility] eRx Reference #:[id number] eRx Prescription Information: eRx Drug: Transparent Mepitel Film eRx Qty: 20 eRx Refills: 2 eRx Days Supply: eRx Sig: As directed, following wound care orders /el/ CASA CASH PHARMACIST Signed: 10/28/2023 08:38 10/28/2023 ADDENDUM STATUS: COMPLETED Received this at [facility], forwarding to [facility] nurse as he sees them. Prescription scanned into this note. /el/ DENNIS RETANA LPN Co-Dairy Processing Supervisor Signed: 10/28/2023 14:48 Receipt Acknowledged By: * AWAITING SIGNATURE * SPENSER YOON ANDREA L [facility]
--- OUTSIDE RECORDS SUMMARY | 2024-07-20 12:44 | XMS_ITS | Encounter Summary ---
Author Organization [facility] Address [address], [place] [address] Care Team Providers Care Teacher Hearing Impaired Name Role Phone Franklin Squires MD [...] filedocumented in this encounter Care Teams Teacher Hearing Impaired Relationship Specialty Start Date End Date Franklin Squires MD [address] [facility] [place] [address] PCP - General Family Practice 03/08/16 documented as of this encounter
--- OUTSIDE RECORDS SUMMARY | 2024-07-20 12:44 | XMS_ITS | Encounter Summary ---
Author Organization [facility] [address], [place] [address] Care Team Providers Care Molder Wax Ball Name Role Phone Franklin Squires MD Primary Care Provider Encounter Details Date Type Department Care Team (Late st Contact Info) Description 11/10/2014 Correspondence [facility] Physical Therapy [address] [place] [address] Trudi Raymundo, PT [address] [place] [address] LETTER OF MEDICAL NECESSITY Social History Tobacco [...] filedocumented in this encounter Care Teams Molder Wax Ball Relationship Specialty Start Date End Date Franklin Squires MD 100 [facility] [place] [address] PCP - General Family Practice 03/08/16 documented as of this encounter
--- OUTSIDE RECORDS SUMMARY | 2024-07-20 12:44 | XMS_ITS | Encounter Summary ---
Author Organization [facility] Address [address] [address] Care Team Providers Care Sponge Hooker Name Role Phone Franklin Squires MD Primary Care Provider Encounter Details Date Type Department Care Team (Late st Contact Info) Description 01/06/2016 Correspondence [facility] Radiology [address] [place] [address] Radiology, Provider MRI SAFETY SHEET AND COMPATIBILITY [...] on filedocumented in this encounter Care Teams Sponge Hooker Relationship Specialty Start Date End Date Franklin Squires MD [address] [place], [place] [address] [address] PCP - General Family Practice 03/08/16 documented as of this encounter
--- OUTSIDE RECORDS SUMMARY | 2024-07-20 12:44 | XMS_ITS | Encounter Summary ---
Author Organization [facility] Address [address] [address] Care Team Providers Care Lead Nurse Name Role Phone Franklin Squires MD Primary Care Provider [phone] Encounter Details Date Type Department Care Team (Late st Contact Info) Description 08/20/2014 Outside Hospital External to [facility] Social History Tobacco [...] filedocumented in this encounter Care Teams Lead Nurse Relationship Specialty Start Date End Date Franklin Squires MD [address] [place], [place] [address] [address] PCP - General Family Practice 03/08/16 documented as of this encounter
--- OUTSIDE RECORDS SUMMARY | 2024-07-20 12:44 | XMS_ITS | Encounter Summary ---
Author Organization [facility] Address [address], [place] [address] Care Team Providers Care Seismic Prospecting Observer Name Role Phone Franklin Squires MD Primary Care Provider [phone] Encounter Details Date Type Department Care Team (Late st Contact Info) Description 12/14/2014 [facility] Physical Medicine 401 [place] [address] May Randle MD [address] [place] [address] DETAILED PRODUCT DESCRIPTION Social History Tobacco Use [...] this encounter Care Teams Seismic Prospecting Observer Relationship Specialty Start Date End Date Franklin Squires MD 100 [facility] [place] [address] PCP - General Family Practice 03/08/16 documented as of this encounter
--- OUTSIDE RECORDS SUMMARY | 2024-07-20 12:44 | XMS_ITS | Encounter Summary ---
Author Organization [facility] Address [address], [place] [address] Care Team Providers Care Event Producer Name Role Phone Franklin Squires MD Primary Care Provider Encounter Details Date Type Department Care Team (Late st Contact Info) Description 08/20/2014 Outside Hospital External to [facility]-ADMIT H/P Social History Tobacco [...] on filedocumented in this encounter Care Teams Event Producer Relationship Specialty Start Date End Date Franklin Squires MD 100 [facility] [place] [address] PCP - General Family Practice 03/08/16 documented as of this encounter
--- OUTSIDE RECORDS SUMMARY | 2024-07-20 12:44 | XMS_ITS | Clinical Summary ---
Author Organization [facility] Address [address] [place] [address] Care Team Providers Care Gas Cutter Name Role Phone Franklin Squires MD Primary Care Provider [phone] Source Comments You are receiving this document [...] for each transition of care or referral. [employer] Allergies Active Allergy Reactions Criticality Noted Date [...] Comments Blood Pressure 120/63 01/18/2022 12:59 PM RISK CONTROL MANAGER Pulse 87 01/18/2022 12:59 PM RISK CONTROL MANAGER Temperature 36.3 ??C (97.4 ??F) 01/18/2022 [...] 06/28/2021 06/28/2011 COVID-19 Vaccine (4 - season) 2024 08/06/2021, 01/25/2021, 01/02/2021 Influenza (#1) 2024 09/03/2021, [...] this topic Medical Devices Implanted Type Area Hourly Manager Device Identifier Shelf Expiration Date Model / Serial / Lot [id number] 4ml Tisseel Explanted:([place] ntity not on file) BIOLOGIC N/A: NECK Lynne Fenwall 09/10/2011 [id number] / [id number] / [id number] Description:posterior Cath Intrathecal Indura - [id number] Implanted:Qty: 1 on 05/09/2010 at [facility] DEVICE Right: LUMBAR SPINE Synapse Wireless 01/18/2012 8709 / N/A / [id number] 5 Cath Intrathecal Indura - [id number] Implanted:Qty: 1 on 05/29/2010 at [facility] DEVICE Synapse Wireless 8709 / / Scr Indira Conic 7.3x80 - [id number] Implanted:Qty: 1 on 03/13/2011 at [facility] DEVICE Right: FEMUR DISTAL [employer] 02.207.28 0 / NONE / NONE Plt Lcp Cndl Rt 4.5x170 6h - [id number] Implanted:Qty: 1 on 03/13/2011 at [facility] DEVICE Right: FEMUR DISTAL [employer] 222.656 / NONE / NONE Description:6 hole 170mm rig ht 4.5mm lcp condylar plate Scr Didier Ss Sftp 4.5x40 - [id number] Implanted:Qty: 1 on 03/13/2011 at [facility] DEVICE Left: FEMUR DISTAL [employer] 214.840 / NONE / NONE Scr Didier Ss Sftp 4.5x50 - [id number] Implanted:Qty: 1 on 03/13/2011 at [facility] DEVICE Left: FEMUR DISTAL [employer] 214.850 / NONE / NONE Scr Indira Lk 5.0x80 - [id number] Implanted:Qty: 2 on 03/13/2011 at [facility] DEVICE Left: FEMUR DISTAL [employer] 02.205.08 0 / NONE / NONE Scr Indira Lk 5.0x85 - [id number] Implanted:Qty: 2 on 03/13/2011 at [facility] DEVICE Left: FEMUR DISTAL [employer] 02.205.08 5 / NONE / NONE Scr Lk Sftp T25 5.0x50 - [id number] Implanted:Qty: 1 on 03/13/2011 at [facility] DEVICE Left: FEMUR DISTAL [employer] 212.219 / NONE / NONE Scr Lk Sftp T25 5.0x60 - [id number] Implanted:Qty: 1 on 03/13/2011 at [facility] DEVICE Left: FEMUR DISTAL [employer] 212.221 / NONE / NONE Scr Indira Conic 7.3x85 - [id number] Implanted:Qty: 1 on 03/13/2011 at [facility] DEVICE Left: FEMUR DISTAL [employer] 02.207.28 5 / NONE / NONE Plt Lcp Cndl Lt 4.5x170 6h - [id number] Implanted:Qty: 1 on 03/13/2011 at [facility] DEVICE Left: FEMUR DISTAL [employer] 222.657 / NONE / NONE Description:6 hole 170mmleng th left 4.5mm lcp condylar plate. Scr Didier Sftp 3.5x60 F-Thrd - [id number] Implanted:Qty: 1 on 03/13/2011 at [facility] DEVICE Left: TIBIA PROXIMAL [employer] 204.860 / NONE / NONE Scr Star Lk Sftp 3.5x32 - [id number] Implanted:Qty: 1 on 03/13/2011 at [facility] DEVICE Left: TIBIA PROXIMAL [employer] 212.112 / NONE / NONE Scr Star Lk Sftp 3.5x55 - [id number] Implanted:Qty: 2 on 03/13/2011 at [facility] DEVICE Left: TIBIA PROXIMAL [employer] 212.123 / NONE / NONE Scr Star Lk Sftp 3.5x60 - [id number] Implanted:Qty: 2 on 03/13/2011 at [facility] DEVICE Left: TIBIA PROXIMAL [employer] 212.124 / NONE / NONE Plt Lcp M/Prox Lt 3.5x94 4h - [id number] Implanted:Qty: 1 on 03/13/2011 at [facility] DEVICE Left: TIBIA PROXIMAL [employer] 239.955 / NONE / NONE Scr Didier Ss Sftp 4.5x36 - [id number] Implanted:Qty: 1 on 03/13/2011 at [facility] DEVICE Right: FEMUR DISTAL [employer] 214.836 / NONE / NONE Scr Didier Ss Sftp 4.5x44 - [id number] Implanted:Qty: 1 on 03/13/2011 at [facility] DEVICE Right: FEMUR DISTAL [employer] 214.844 / NONE / NONE Scr Indira Lk 5.0x75 - [id number] Implanted:Qty: 1 on 03/13/2011 at [facility] DEVICE Right: FEMUR DISTAL [employer] 02.205.07 5 / NONE / NONE Scr Indira Lk 5.0x85 - [id number] Implanted:Qty: 2 on 03/13/2011 at [facility] DEVICE Right: FEMUR DISTAL [employer] 02.205.08 5 / NONE / NONE Scr Lk Sftp T25 5.0x44 - [id number] Implanted:Qty: 1 on 03/13/2011 at [facility] DEVICE Right: FEMUR DISTAL [employer] 212.216 / NONE / NONE Scr Lk Sftp T25 5.0x65 - [id number] Implanted:Qty: 1 on 03/13/2011 at [facility] DEVICE Right: FEMUR DISTAL [employer] 212.222 / NONE / NONE Plt Lp T Ti Str 4h - [id number] Implanted:Qty: 3 on 07/28/2014 by Cooper Shelley MD at [facility] DEVICE Right: SKULL [employer] 421.504 / / Scr Matrix Sfdr 4mm - [id number] Implanted:Qty: 6 on 07/28/2014 by Cooper Shelley MD at [facility] DEVICE Right: SKULL [employer] 04.503.10 4.01 / / Lead Linear 3-4 8 Contact 50cm - [id number] Implanted:Qty: 1 on 03/08/2016 by Zelalem Cohen DO at [facility] DEVICE N/A: OTHER-SEE DESCRIPTION [facility] 09/10/2017 [id number] 2500 / / [id number] Description:LUMBAR Lead Linear 3-4 8 Contact 50cm - [id number] Implanted:Qty: 1 on 03/08/2016 by Zelalem Cohen DO at [facility] DEVICE N/A: OTHER-SEE DESCRIPTION [facility] 09/10/2017 [id number] 2500 / / [id number] Description:LUMBAR Lead Linear 3-4 8 Contact 50cm - [id number] Implanted:Qty: 1 on 03/08/2016 by Zelalem Cohen DO at [facility] DEVICE N/A: OTHER-SEE DESCRIPTION [facility] 09/10/2017 [id number] 2500 / / [id number] Description:LUMBAR Lead Linear 3-4 8 Contact 50cm - [id number] Implanted:Qty: 1 on 03/08/2016 by Zelalem Cohen DO at [facility] DEVICE N/A: OTHER-SEE DESCRIPTION [facility] 09/10/2017 [id number] 2500 / / [id number] Description:LUMBAR Lead Linear 3-4 8 Contact 50cm - [id number] Implanted:Qty: 1 on 05/24/2016 by Zelalem Cohen DO at [facility] DEVICE N/A: SPINE LUMBAR POSTERIOR [facility] 01/31/2018 [id number] 2500 / [id number] / Lead Linear 3-4 8 Contact 50cm - [id number] Implanted:Qty: 1 on 05/24/2016 by Zelalem Cohen DO at [facility] DEVICE N/A: SPINE LUMBAR POSTERIOR [facility] 04/26/2018 [id number] 2500 / [id number] / Lead Linear 3-4 8 Contact 50cm - [id number] Implanted:Qty: 1 on 05/24/2016 by Zelalem oChen DO at [facility] DEVICE N/A: SPINE LUMBAR POSTERIOR [facility] 04/26/2018 [id number] 2500 / [id number] / Lead Linear 3-4 8 Contact 50cm - [id number] Implanted:Qty: 1 on 05/24/2016 by Zelalem Cohen DO at [facility] DEVICE N/A: SPINE LUMBAR POSTERIOR [facility] 04/26/2018 [id number] 2500 / [id number] / Generator Pulse Spectra - [id number] Implanted:Qty: 1 on 05/24/2016 by Zelalem Cohen DO at [facility] DEVICE N/A: SPINE LUMBAR POSTERIOR [facility] 05/08/2018 [id number] 20 / [id number] / [id number] [employer] Clik - [id number] Implanted:Qty: 1 on 05/24/2016 by Zelalem Cohen DO at [facility] DEVICE N/A: SPINE LUMBAR POSTERIOR [facility] 05/02/2018 [id number] 60 / / [id number] [employer] Clik - [id number] Implanted:Qty: 1 on 05/24/2016 by Zelalem Cohen DO at [facility] DEVICE N/A: SPINE LUMBAR POSTERIOR [facility] 02/28/2018 [id number] 60 / / [id number] Procedures Procedure Name Priority Date/Time Associated Diagnosis Comments CREATININE/GFR, WB POC Routine 01/06/2016 12:04 PM RISK CONTROL MANAGER Back pain, 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 Creat Whole Blood 0.9 0.66 - 1.25 mg/dl [facility] GFR, Estimated >60 >60 ml/min/1.7 3m2 [facility] GFR, Est., If Black >60 >60 ml/min/1.7 3m2 [facility] 01/06/2016 12:0 4 PM RISK CONTROL MANAGER 01/06/2016 12:21 PM RISK CONTROL MANAGER Trae Blair MD LAB_1 [facility] [phone] * (ABNORMAL) HGB A1C (07/29/2014 3:19 AM CDT) [facility] Hgb A1c 6.4(H) 4.3 - 6.1 % [facility] Comment: The usual A1C goal for people with diabetes, age 18-75, is <8.0%. Physicians may recommend a higher or lower goal for specific individuals. 07/29/2014 3:19 AM CDT 07/29/2014 3:22 AM CDT Narrative [facility] - 07/29/2014 12:53 PM CDT Performed at [facility] [place] [facility], [address] [place] [address] ??[id number] [place] Wei PA-C LAB_[address] [address] from Last 3 Months or Most Recently [...] 5:44 PM 07/28/2014 6:50 PM Care Teams Gas Cutter Relationship Specialty Start Date End Date Franklin Squires MD 100 [facility] [place] [address] PCP - General Family Practice 03/08/16
--- OUTSIDE RECORDS SUMMARY | 2024-07-20 12:44 | XMS_ITS | Encounter Summary ---
Author Organization [facility] Address [address] [address] Care Team Providers Care Coding Validator Name Role Phone Franklin Squires MD Primary Care Provider Encounter Details Date Type Department Care Team (Late st Contact Info) Description 02/09/2016 Correspondence [facility] 401 NeuroSurgery 401 [facility]. [place], [place] [id number] Jodi Aguila PA-C [address] [place] [address] PATIENT LIFT PRESCRIPTION Social History Tobacco Use [...] filedocumented in this encounter Care Teams Coding Validator Relationship Specialty Start Date End Date Franklin Squires MD 100 [facility] [place] [id number] PCP - General Family Practice 03/08/16 documented as of this encounter
--- OUTSIDE RECORDS SUMMARY | 2024-07-20 12:44 | XMS_ITS | Clinical Summary ---
Author Organization [facility] [employer] [facility] Address [place], [place] [address] Care Team Providers Care Property Manager Name Role Phone Zelalem Cohen MD Unavailable [phone] May Randle) Unavailable Franklin Squires MD Primary Care Provider Fred Craft Unavailable Diane Charles MD Unavailable [phone] Julia Ware RN Unavailable [phone] Allergies Active Allergy Reactions Criticality Noted Date [...] bedIndications:Non-heal ing surgical wound, subsequent encounter Drive [employer] 8 inch low loss mattress and 1/2 rails. Semi-electric bed. Length of need 6 weeks. Bed supervisor metal cans:no 1 unit 018 Active acetaminophen (TYLENOL EXTRA [...] 60mm, Cut-to-Fit 01/16 - 2 11/18. Item #[id number]. 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 (),Anticoagulation monitoring, INR range 2-3,Anticoagulation monitoring, INR range [...] in the evening OR as directed Active buPROPion (WELLBUTRIN SR) 150 mg Sustained-Release tabletIndications:Depre ssive disorder TAKE 1 TABLET TWICE A DAY 180 Tablet 1 024 2023 Discontinued LORazepam (ATIVAN) 0.5 mg [...] Discontinued(* Medication adjustment) donepeziL (ARICEPT) 5 mg tabletIndications:Millicent hart TAKE 1 TABLET AT BEDTIME 90 Tablet 024 2023 Discontinued warfarin (COUMADIN) 5 mg tabletIndications: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),Anticoagulation monitoring, INR range 2-3,SDH (subdural hematoma) (HC) Not currently using 024 2023 Discontinued(R eorder (E-cancel not sent)) [...] evening OR as directed 95 Tablet 024 2023 Discontinued(R eorder (E-cancel not [...] Normochromic anemia 08/25/2020 SVT (supraventricular tachycardia) 07/07/2020 Overview (07/07/2020): status post ablation 07/06/2020 Deep tissue injury 04/18/2020 Overview (04/18/2020): Left lower back MRSA infection 04/08/2020 Pressure injury of right buttock, stage 1 2018 Complicated UTI (urinary tract infection) 2018 Type 2 diabetes mellitus wit h complication, with long-term current use of insulin 01/18/2019 Major depressive disorder, recurrent episode, mo derate 01/18/2019 right ischial area pressure ulcer, stage 4 09/08 Overview (09/08/2018): Flap repair to right ischial stage 4 [...] mities 08/18/2015 Controlled substance agreement signed 09/02/2014 Overview (02/04/2020): 01/16/[address] Squires Compliance Urine 01/2020 60 oxycontin 30 tabs, 30 oxycontin 15 tabs, lorazepam 120 tabs, oxycodone 10 tabs Per month (Spinal tumor) Tinnitus, bilateral 06/10/2014 Overview (06/10/2014): Began 3-4 weeks ago Sensorineural hearing loss, bilateral 06/10/2014 Anticoagulation monitoring, INR range 2-3 2013 Overview (03/03/2019): GOAL 2.0-2.5 (but use 2-3 guidelines per Tavia 03/02/19)-- Osteoporosis, unspecified 02/12/2011 Vitamin D deficiency 09/08/2010 Paraplegia 09/27/2008 Assessment & Plan (01/19/2012 9:22 AM TRANSMITTER CHIEF): Orthopedics: Dr. Bright PM&R: Dr. May Randle Pain Management: Dr. 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 Neurogenic bladder, NOS 11/04/201105/2016 Peripheral edema 06/09/2010 09/25/2016 Deep phlebothrombosis, antep artum, with delivery 04/16/2007 10/01/2007 Overview (04/16/2007): S/P IVC Filter long-term (current) use of anticoagulants 02/19/2007 09/27/2008 Depressive disorder, not elsewhere classified 02/14/20 07 01/15/2018 Abnormality of gait 12/24/2006 09/27/20 08 Urinary tract infection, site not specified 12/24/2006 01/15/2018 BENIGN ESSENTIAL HYPERTENSION 12/24/2006 04/17/2016 Overview (12/24/2006): borderline Necrotizing fasciitis 2018 Type 2 diabetes mellitus Encounters Date Type Department Care Team Description 07/15/[address] [address] Franklin Squires MD Anticoagulation (Order renewal) 07/15/2024 Anticoagulation (warfarin) [address] [place] [address] 1, [facility] Anticoagulation (Acelis ) 07/14/[address] [address] Franklin Squires MD Form (Case Communication- Major drug interactions-( Warfarin) - Home Health Certification and Plan of Care - 07/08/2024-09/05/2024) 07/14/[address] [place] [address] Franklin Squires MD Refill Request (Bupropion) 07/09/2024 Orders Only [facility] Scanner 1 scan: (1-Ord) [facility], CT PELVIS W CON, 07/09/2024 07/08/2024 1:30 PM CDT Nurse/Clinic Staff Only [address] [place] [address] Nurse/Clinic Staff Only (Cath Change ) 07/08/2024 Travel 07/07/[address] [place] [address] Franklin Squires MD Refill Request (Donepezil) 07/02/2024 1:30 PM CDT Office Visit [address] [place] [address] Franklin Squires MD Medication Management 07/02/2024 Travel 07/01/2024 Anticoagulation (warfarin) [address] [place] [address] 1, [facility] Anticoagulation (Acelis) 06/17/2024 Anticoagulation (warfarin) [address] [place] [address] 1, [facility] Anticoagulation (acelis) 06/11/[address] [place] [address] Franklin Squires MD Refill Request (Warfarin) 06/03/2024 Anticoagulation (warfarin) [address] [place] [address] 1, [facility] Anticoagulation (Acelis) 06/02/[address] [place] [address] Franklin Squires MD Refill Request (Oxycodone) 05/20/2024 Anticoagulation (warfarin) [address] [place] [address] 1, [facility] Anticoagulation (Acelis) 05/14/[address] [place] [address] Franklin Squires MD Refill Request (Baclofen) 05/14/[address] [place] [address] Franklin Squires MD Refill Request (Warfarin) 05/13/2024 Anticoagulation (warfarin) [address] [place] [address] 1, [facility] Anticoagulation (Acelis) 05/11/[address] [place] [address] Franklin Squires MD Form (Physician Orders and Home Health Certification and Plan of Care.) 05/06/2024 Anticoagulation (warfarin) [address] [place] [address] 1, [facility] Anticoagulation (Acelis) 05/05/2024 Telephone [facility] [address] [facility] [place] [address] Franklin Squires MD Form (60 Day Summary Report) 05/05/2024 Refill [facility] [address] [place] [address] Franklin Squires MD Refill Request (Warfarin) 05/04/[address] [place] [address] Franklin Squires MD Form 05/04/[address] [place] [address] Franklin Squires MD Refill Request (Oxycodone) 05/01/2024 Anticoagulation (warfarin) [address] [address] , [facility] Anticoagulation (Acelis) 04/29/[address] [place] [address] Franklin Squires MD Refill Request (Duloxetine, Donepezil) 04/24/2024 2:49 PM CDT - 04/24/2024 2:50 PM CDT Emergency [facility] [address] [facility] [place] [address] Discharge Disposition: Against Medical Advice or Discontinued Care 04/24/2024 Travel 04/24/2024 Anticoagulation (warfarin) [address] [address] 1, [facility] Anticoagulation (Acelis) 04/21/[address] [place] [address] Franklin Squires MD Refill Request (Gabapentin) 04/20/[address] [place] [phone] Franklin Squires MD Form (Physician Orders. Urinary Catheter - Suprapubic. ) 04/20/[address] [place] [address] Franklin Squires MD Refill Request (Gabapentin 400 mg) from Last 3 Months Immunizations Name Administration [...] 07/29/2024 1:30 PM CDT Nurse/Clinic Staff Only [address] [address] Health Maintenance Due Date Last Done Comments [...] Associated Diagnosis Comments HOME MONITOR AC Routine 07/15/2024 12:00 AM CDT SCAN-CT INTERPRETATION 07/09/2024 12:00 AM CDT CBC [...] Months Results * (ABNORMAL) HOME MONITOR AC (07/15/2024 12:00 AM CDT) Only the most recent of9 resultswithin the time period is included. PATIENT REPORTED HOME INR 3.1(H) 2.00 - 3.00 ALERE HOME MONITORING 07/15/2024 Franklin Squires MD OTHER ALERE HOME MONITORING [address] [place] [address] * SCAN-CT INTERPRETATION (07/09/2024 12:00 AM CDT) Anatomical Region Laterality Modality Other Scanner OTHER * LIPID PANEL W REFLEX MEASURED LDL (07/02/2024 2:14 PM CDT) CHOLESTEROL,TOTAL 122 100 - 199 mg/dL 07/02/2024 3:04 PM CDT [facility] Comment: Cholesterol, Total Reference Ranges Desirable <200 mg/dL Borderline 200-239 mg/dL High >=240 mg/dL TRIGLYCERIDES 58 <150 mg/dL 07/02/2024 3:04 PM CDT [facility] HDL CHOLESTEROL 56 >40 mg/dL 3:04 PM T [facility] NON-HDL CHOLESTEROL 66 <145 mg/dl 07/02/2024 3:04 PM T [facility] CHOL/HDL RATIO 2.18 <4.50 07/02/2024 3:04 PM T [facility] LDL CHOLESTEROL 54 <=130 mg/dL 07/02/2024 3:04 PM [facility] VLDL CHOLESTEROL 12 <=30 mg/dL 07/02/2024 3:04 PM T [facility] PROVIDER ORDERED STATUS RANDOM 07/02/2024 3:04 PM [facility] Blood BLOOD SPECIMEN / Unknown Venipuncture / Unknown 07/02/2024 2:14 PM CDT 07/02/2024 2:14 PM CDT Franklin Squires MD CHEMISTRY Performing Organization Address City/State/[facility] Co de Phone Number [facility] [address] [place] [address] * (ABNORMAL) CBC W PLT NO DIFF (07/02/2024 2:14 PM CDT) WHITE BLOOD COUNT 8.5 4.5 - 11.0 thou/cu mm 07/02/2024 2:58 PM [facility] RED BLOOD COUNT 4.75 4.30 - 5.90 mil/cu mm 07/02/2024 2:58 PM [facility] HEMOGLOBIN 14.1 13.5 - 17.5 g/dL 07/02/2024 2:58 PM T [facility] HEMATOCRIT 42.2 37.0 - 53.0 % 07/02/2024 2:58 PM [facility] MCV 89 80 - 100 fL 07/02/2024 2:58 PM [facility] MCH 29.7 26.0 - 34.0 pg 07/02/2024 2:58 PM [facility] MCHC 33.4 32.0 - 36.0 g/dL 07/02/2024 2:58 PM CDT [facility] RDW 18.3(H) 11.5 - 15.5 % 07/02/2024 2:58 PM CDT [facility] PLATELET COUNT 159 140 - 440 thou/cu mm 07/02/2024 2:58 PM CDT [facility] MPV 10.7 6.5 - 11.0 fL 07/02/2024 2:58 PM CDT [facility] Blood BLOOD SPECIMEN / Unknown Venipuncture / Unknown 07/02/2024 2:14 PM CDT 07/02/2024 2:14 PM CDT Franklin Squires MD HEMATOLOGY [facility] [address] [place] [address] * HEMOGLOBIN A1C MONITORING (POCT) (07/02/2024 2:14 PM CDT) HEMOGLOBIN A1C MONITORING (POCT) 5.9 <=6.4 % 07/02/2024 2:49 PM CDT [facility] Blood BLOOD SPECIMEN / Unknown Venipuncture / Unknown 07/02/2024 2:14 PM CDT 07/02/2024 2:14 PM CDT Narrative [facility] - 07/02/2024 2:49 PM CDT ? [...] Splenectomy ? Franklin Squires MD CHEMISTRY [facility] [address] [place] [address] * (ABNORMAL) BASIC METABOLIC PANEL (07/02/2024 2:14 PM CDT) SODIUM 138 136 - 145 mmol/L 07/02/2024 3:04 PM [facility] POTASSIUM 4.1 3.5 - 5.1 mmol/L 07/02/2024 3:04 PM [facility] CHLORIDE 99 98 - 107 mmol/L 07/02/2024 3:04 PM [facility] CO2,TOTAL 29 22 - 29 mmol/L 07/02/2024 3:04 PM [facility] ANION GAP 10 5 - 18 07/02/2024 3:04 PM [facility] GLUCOSE 95 70 - 99 mg/dL 07/02/2024 3:04 PM [facility] CALCIUM 9.5 8.8 - 10.2 mg/dL 07/02/2024 3:04 PM [facility] BUN 18 8 - 23 mg/dL 07/02/2024 3:04 PM [facility] CREATININE 0.69(L) 0.70 - 1.20 mg/dL 07/02/2024 3:04 PM [facility] BUN/CREAT RATIO 26(H) 10 - 20 3:04 PM [facility] eGFR >90 >90 mL/min/1.7 3m2 07/02/2024 3:04 PM [facility] Comment:As of 2022, eG FR is calculated by the CKD-EPI creatinine equation without race adjustment. ??eGFR can be influenced by muscle mass, exercise, and diet. ??The reported eGFR is an estimation only and is only applicable if the renal function is stable. Blood BLOOD SPECIMEN / Unknown Venipuncture / Unknown 07/02/2024 2:14 PM CDT 07/02/2024 2:14 PM CDT Franklin Trae Tavia MD CHEMISTRY [facility] [address] [place], [place] [phone] from Last 3 Months Additional Health Concerns [...] months since positive culture): resides in acute/intermodal dispatcher care, receiving hemodialysis, has chronic open wounds/skin damage, has long-term percutaneous indwelling medical devices Exclusions for nares collection (if <12 months since positive culture) include all of the previous exclusions plus patients on antibiotics 7 days prior to collection 03/13/2018 03/20/2024 Advance Directives Documents on File Type Date Recorded Patient Networking Administrator Expl anation Healthcare Directive 05/09/2023 023 Healthcare [...] Code Status Discussion: Reviewed Preferences Care Teams Property Manager Relationship Specialty Start Date End Date Franklin Squires MD [address] [place] [address] PCP - General Family Practice 10/18/15 Zelalem Cohen MD Physical Therapist 03/13/12 May Randle), Physical Medicine and Rehabilitation 03/13/12 Corona, ANTHONY KruegerW [address] [place] [address] Post Production Assistant 05/03/17 Diane Charles MD [address] [place] [address] Surgery - Urology 01/17/23 Julia Ware, RN [address] [place] [address] Registered Nurse 07/17/23
--- OUTSIDE RECORDS SUMMARY | 2024-07-20 12:44 | XMS_ITS | Encounter Summary ---
Author Organization [facility] Address [address], [place] [address] Care Team Providers Care Robotic Machine Operator Name Role Phone Franklin Squires MD Primary Care Provider [phone] Encounter Details Date Type Department Care Team (Late st Contact Info) Description 12/16/2014 Correspondence External to External, [place] [address] MEDICARE PLAN OF CARE RECERT Social History [...] on filedocumented in this encounter Care Teams Robotic Machine Operator Relationship Specialty Start Date End Date Franklin Squires MD [address] [place] [address] [place] [address] PCP - General Family Practice 03/08/16 documented as of this encounter
--- OUTSIDE RECORDS SUMMARY | 2024-07-20 12:44 | XMS_ITS | Encounter Summary ---
Author Organization [facility] [place] Address [address], [place] [address] Care Team Providers Care Director Of Health Education Name Role Phone Franklin Squires MD Primary Care Provider [phone] Encounter Details Date Type Department Care Team [...] in this encounter Care Teams Director Of Health Education Relationship Specialty Start Date End Date Franklin Squires MD [address] [facility] [address] PCP - General Family Practice 03/08/16 documented as of this encounter
--- OUTSIDE RECORDS SUMMARY | 2024-07-20 12:44 | XMS_ITS | Encounter Summary ---
Author Organization [facility] Address [address], [place] [address] Care Team Providers Care Email Specialist Name Role Phone Franklin Squires MD Primary Care Provider [phone] Encounter Details Date Type Department Care Team [...] on filedocumented in this encounter Care Teams Email Specialist Relationship Specialty Start Date End Date Franklin Squires MD [address] [facility] [address] PCP - General Family Practice 03/08/16 documented as of this encounter
--- OUTSIDE RECORDS SUMMARY | 2024-07-20 12:44 | XMS_ITS | Encounter Summary ---
Author Organization [facility] Address [address], [place] [address] Care Team Providers Care Digital Marketing Lead Name Role Phone Franklin Squires MD Primary Care Provider Encounter Details Date Type Department Care Team (Late st Contact Info) Description 11/23/2015 Correspondence External to External, [place] [address] LETTER [facility] Social History Tobacco Use Types Packs/Day Years [...] filedocumented in this encounter Care Teams Digital Marketing Lead Relationship Specialty Start Date End Date Franklin Squires MD [address] [place] [address] [place] [address] PCP - General Family Practice 03/08/16 documented as of this encounter
--- OUTSIDE RECORDS SUMMARY | 2024-07-20 12:44 | XMS_ITS | Encounter Summary ---
Author Organization [facility] Address [address] [address] Care Team Providers Care Server Support Technician Name Role Phone Franklin Squires MD Primary Care Provider [phone] Encounter Details Date Type Department Care Team (Latest Contact Info) Description 12/11/2017 Correspondence Physiatry/Physical Medicine at [facility] [address] [facility] [place] [address] May Randle MD [address] [place] [address] [employer] Social History Tobacco Use [...] on filedocumented in this encounter Care Teams Server Support Technician Relationship Specialty Start Date End Date Franklin Squires MD [address] [place] [address] [place] [address] PCP - General Family Practice 03/08/16 documented as of this encounter
--- OUTSIDE RECORDS SUMMARY | 2024-07-20 12:44 | XMS_ITS | Encounter Summary ---
Author Organization [facility] Address [address], [place] [address] Care Team Providers Care Inspecting And Testing Lead Hand Name Role Phone Franklin Squires MD Primary Care Provider Encounter Details Date Type Department Care Team (Late st Contact Info) Description 06/07/2015 Correspondence [facility] Radiology [address] [place] [address] Radiology, Provider MRI SAFETY SHEET AND COMPATIBILITY [...] on filedocumented in this encounter Care Teams Inspecting And Testing Lead Hand Relationship Specialty Start Date End Date Franklin Squires MD [address] [place], [place] [address] [address] PCP - General Family Practice 03/08/16 documented as of this encounter
--- OUTSIDE RECORDS SUMMARY | 2024-07-20 12:44 | XMS_ITS | Encounter Summary ---
Author Organization [facility] [address], [place] [address] Care Team Providers Care Rubber Goods Tester Name Role Phone Franklin Squires MD Primary Care Provider Encounter Details Date Type Department Care Team (Late st Contact Info) Description 07/08/2015 Correspondence [facility] Physical Therapy [address] [place] [address] Trudi Raymundo, PT [address] [place] [address] ADDENDUM FOR LETTER OF MEDICAL NECESSITY Social [...] on filedocumented in this encounter Care Teams Rubber Goods Tester Relationship Specialty Start Date End Date Franklin Squires MD [address] [facility] [address] PCP - General Family Practice 03/08/16 documented as of this encounter
--- OUTSIDE RECORDS SUMMARY | 2024-07-20 12:44 | XMS_ITS | Encounter Summary ---
Author Organization [facility] Address [address], [place] [address] Care Team Providers Care Safemaker Name Role Phone Franklin Squires MD Primary Care Provider Encounter Details Date Type Department Care Team (Late st Contact Info) Description 09/07/2014 Correspondence [facility] Radiology [address] [place] [address] Radiology, Provider MRI SAFETY SHEET AND COMPATIBILITY [...] on filedocumented in this encounter Care Teams Safemaker Relationship Specialty Start Date End Date Franklin Squires MD [address] [place], [place] [address] [address] PCP - General Family Practice 03/08/16 documented as of this encounter
--- OUTSIDE RECORDS SUMMARY | 2024-07-20 12:44 | XMS_ITS | Encounter Summary ---
Author Organization [facility] Address [address], [place] [address] Care Team Providers Care Motorcycle Police Name Role Phone Franklin Squires MD Primary Care Provider Encounter Details Date Type Department Care Team (Late st Contact Info) Description 07/28/2014 Outside Hospital External to External, Provider No address [address] ER VISIT/TRANSFER Social History Tobacco Use [...] on filedocumented in this encounter Care Teams Motorcycle Police Relationship Specialty Start Date End Date Franklin Squires MD [address] [facility] [place] [address] PCP - General Family Practice 03/08/16 documented as of this encounter
--- OUTSIDE RECORDS SUMMARY | 2024-07-20 12:44 | XMS_ITS | Encounter Summary ---
Author Organization [facility] Address [address] [address] Care Team Providers Care Block Feeder Name Role Phone Franklin Squires MD Primary Care Provider Encounter Details Date Type Department Care Team (Late st Contact Info) Description 08/22/[address] External to [facility] HOSP-D/C SUMMARY Social History Tobacco Use [...] filedocumented in this encounter Care Teams Block Feeder Relationship Specialty Start Date End Date Franklin Squires MD [address] [facility] [address] PCP - General Family Practice 03/08/16 documented as of this encounter
--- OUTSIDE RECORDS SUMMARY | 2024-07-20 12:44 | XMS_ITS ---
Author Organization [facility] Address [address], [place] [address] Care Team Providers Care Manager Sterile Processing Name Role Phone Franklin Squires MD Primary Care Provider [phone] Active Problems Problem Noted Date Diagnosed Date [...]
--- OUTSIDE RECORDS SUMMARY | 2024-07-20 12:45 | XMS_ITS | Encounter Summary ---
Author Organization [facility] Address [address], [place] [address] Care Team Providers Care Rubber Process Hand Name Role Phone Franklin Squires MD Primary Care Provider [phone] Encounter Details Date Type Department Care Team (Late st Contact Info) Description 01/08/2013 Scanned History External to Transferred Record, Provider [facility] Social History Tobacco Use Types Packs/Day Years [...] filedocumented in this encounter Care Teams Rubber Process Hand Relationship Specialty Start Date End Date Franklin Squires MD [address] [facility] [address] PCP - General Family Practice 03/08/16 documented as of this encounter
--- OUTSIDE RECORDS SUMMARY | 2024-07-20 12:45 | XMS_ITS | Encounter Summary ---
Author Organization [facility] [address], [place] [address] Care Team Providers Care Log Yard Derrick Operator Name Role Phone Franklin Squires MD Primary Care Provider [phone] Encounter Details Date Type Department Care Team (Late st Contact Info) Description 10/26/2013 Correspondence [facility] Physical Therapy [address] [place] [address] Trudi Raymundo, PT [address] [place] [address] LETTER OF MEDICAL NECESSITY Social History Tobacco [...] Raymundo, PT - 10/26/2013 12:00 AM CST NERY SUPERINTENDENT documented in this encounter Plan of Treatment Not on file documented as of this encounter Visit Diagnoses Not on filedocumented in this encounter Care Teams Log Yard Derrick Operator Relationship Specialty Start Date End Date Franklin Squires MD 100 [facility] [address] PCP - General Family Practice 03/08/16 documented as of this encounter
--- OUTSIDE RECORDS SUMMARY | 2024-07-20 12:45 | XMS_ITS | Encounter Summary ---
Author Organization [facility] Address [address], [place] [address] Care Team Providers Care Crossing Tender Name Role Phone Franklin Squires MD Primary Care Provider [phone] Encounter Details Date Type Department Care Team (Late st Contact Info) Description 09/17/2013 Correspondence External to External, [place] [address] EMPOWERMENT RULES Social History Tobacco Use Types [...] External, Provider - 09/17/2013 12:00 AM CST [place] SALES MERCHANDISER DEVELOPMENT documented in this encounter Plan of Treatment Not on file documented as of this encounter Visit Diagnoses Not on filedocumented in this encounter Care Teams Crossing Tender Relationship Specialty Start Date End Date Franklin Squires MD [address] [place] [address] [place] [address] PCP - General Family Practice 03/08/16 documented as of this encounter
--- OUTSIDE RECORDS SUMMARY | 2024-07-20 12:45 | XMS_ITS | Encounter Summary ---
Author Organization [facility] Address [address], [place] [address] Care Team Providers Care Hand Nailer Name Role Phone Franklin Squires MD Primary Care Provider Encounter Details Date Type Department Care Team (Late st Contact Info) Description 04/24/2012 Correspondence [facility] Radiology [address] [place] [address] Radiology, Provider MRI SAFETY SHEET AND COMPATIBILITY [...] filedocumented in this encounter Care Teams Hand Nailer Relationship Specialty Start Date End Date Franklin Squires MD 100 [facility] [place] [address] PCP - General Family Practice 03/08/16 documented as of this encounter
--- OUTSIDE RECORDS SUMMARY | 2024-07-20 12:45 | XMS_ITS | Encounter Summary ---
Author Organization [facility] Address [address], [place] [address] Care Team Providers Care Horse Rider Name Role Phone Franklin Squires MD Primary Care Provider Encounter Details Date Type Department Care Team (Late st Contact Info) Description 04/20/[address] [address] Radiology, Provider MRI SAFETY SHEET AND COMPATIBILITY [...] filedocumented in this encounter Care Teams Horse Rider Relationship Specialty Start Date End Date Franklin Squires MD 100 [facility] [place] [address] PCP - General Family Practice 03/08/16 documented as of this encounter
--- OUTSIDE RECORDS SUMMARY | 2024-07-20 12:45 | XMS_ITS | Encounter Summary ---
Author Organization [facility] Address [address], [place] [address] Care Team Providers Care Manual Control Auger Press Operator Name Role Phone Franklin Squires MD Primary Care Provider Encounter Details Date Type Department Care Team (Late st Contact Info) Description 03/11/2014 Correspondence [facility] 401 Interventional Pain Management 401 [place] [address] Zelalem Cohen, DO [address] [place] [address] EMPI Social History Tobacco Use Types Packs/Day [...] on filedocumented in this encounter Care Teams Manual Control Auger Press Operator Relationship Specialty Start Date End Date Franklin Squires MD 100 [facility] [place] [address] PCP - General Family Practice 03/08/16 documented as of this encounter
--- OUTSIDE RECORDS SUMMARY | 2024-07-20 12:45 | XMS_ITS | Encounter Summary ---
Author Organization [facility] Address [address], [place] [address] Care Team Providers Care Cyber Defense Analyst Name Role Phone Franklin Squires MD Primary Care Provider Encounter Details Date Type Department Care Team (Late st Contact Info) Description 06/11/2014 Correspondence [facility] 401 Physical Medicine 401 [facility] [place] [address] May Randle MD [address] [place] [address] [facility] Social History Tobacco Use Types [...] on filedocumented in this encounter Care Teams Cyber Defense Analyst Relationship Specialty Start Date End Date Franklin Squires MD 100 [facility] [place] [address] PCP - General Family Practice 03/08/16 documented as of this encounter
--- OUTSIDE RECORDS SUMMARY | 2024-07-20 12:45 | XMS_ITS | Encounter Summary ---
Author Organization [facility] Address [address], [place] [address] Care Team Providers Care Brake Repairer Name Role Phone Franklin Squires MD Primary Care Provider Encounter Details Date Type Department Care Team (Late st Contact Info) Description 05/04/2014 Correspondence [facility] 401 Physical Medicine 401 [facility] [place] [address] May Randle MD [address] [place] [address] LETTER OF MEDICAL NECESSITY FOR A WHEELCHAIR [...] filedocumented in this encounter Care Teams Brake Repairer Relationship Specialty Start Date End Date Franklin Squires MD [address] [facility] [place] [address] PCP - General Family Practice 03/08/16 documented as of this encounter
--- OUTSIDE RECORDS SUMMARY | 2024-07-20 12:45 | XMS_ITS | Encounter Summary ---
Author Organization [facility] [address] [address] Care Team Providers Care Automatic Drill Operator Name Role Phone Franklin Squires MD Primary Care Provider [phone] Encounter Details Date Type Department Care Team (Late st Contact Info) Description 02/05/2014 Correspondence [facility] Physical Therapy [address] [place] [address] Trudi Raymundo, PT [address] [place] [address] LETTER OF MEDICAL NECESSITY FOR A WHEELCHAIR [...] filedocumented in this encounter Care Teams Automatic Drill Operator Relationship Specialty Start Date End Date Franklin Squires MD 100 [facility] [place] [address] PCP - General Family Practice 03/08/16 documented as of this encounter
--- OUTSIDE RECORDS SUMMARY | 2024-07-20 12:45 | XMS_ITS | Encounter Summary ---
Author Organization [facility] Address [address], [place] [address] Care Team Providers Care Laborer/Key Man Name Role Phone Franklin Squires MD Primary Care Provider Encounter Details Date Type Department Care Team (Latest Contact Info) Description 06/04/2014 Correspondence [facility] 401 Interventional Pain Management 401 [facility] [place] [address] Zelalem Cohen, DO [address] [place] [address] MEDICAID PT INFORMATION EMPI RECOVERY Social History [...] on filedocumented in this encounter Care Teams Laborer/Key Man Relationship Specialty Start Date End Date Franklin Squires MD 100 [facility] [place] [address] PCP - General Family Practice 03/08/16 documented as of this encounter
--- OUTSIDE RECORDS SUMMARY | 2024-07-20 12:45 | XMS_ITS | Encounter Summary ---
Author Organization [facility] Address [address], [place] [address] Care Team Providers Care Drapery Operator Name Role Phone Franklin Squires MD Primary Care Provider Encounter Details Date Type Department Care Team (Late st Contact Info) Description 11/13/2012 Correspondence [facility] Radiology [address] [place] [address] Radiology, Provider MRI SAFETY SHEET AND COMPATIBILITY [...] RADIOLOGY, PROVIDER - 11/13/2012 12:[address] HELPER documented in this encounter Plan of Treatment Not on file documented as of this encounter Visit Diagnoses Not on filedocumented in this encounter Care Teams Drapery Operator Relationship Specialty Start Date End Date Franklin Squires MD 100 [facility] [place] [address] PCP - General Family Practice 03/08/16 documented as of this encounter
--- OUTSIDE RECORDS SUMMARY | 2024-07-20 12:45 | XMS_ITS | Encounter Summary ---
Author Organization [facility] Address [address], [place] [address] Care Team Providers Care Air Drier Name Role Phone Franklin Squires MD Primary Care Provider [phone] Encounter Details Date Type Department Care Team (Late st Contact Info) Description 07/23/2013 Correspondence [facility] 401 Interventional Pain Management 401 [facility] [place] [address] Zelalem Cohen DO [address] [place] [address] [employer] Social History Tobacco Use Types [...] Cohen MD - 07/23/2013 12:00 AM CDT RPERSONAL COMMUNICATIONS PROFESSOR documented in this encounter Plan of Treatment Not on file documented as of this encounter Visit Diagnoses Not on filedocumented in this encounter Care Teams Air Drier Relationship Specialty Start Date End Date Franklin Squires MD 100 [facility] [place] [address] PCP - General Family Practice 03/08/16 documented as of this encounter
--- OUTSIDE RECORDS SUMMARY | 2024-07-20 12:45 | XMS_ITS | Encounter Summary ---
Author Organization [facility] Address [address], [place] [address] Care Team Providers Care Technical Sales Director Name Role Phone Franklin Squires MD Primary Care Provider Encounter Details Date Type Department Care Team (Late st Contact Info) Description 12/16/2013 Correspondence [facility] Radiology [address] [place] [address] Radiology, Provider MRI SAFETY SHEET AND COMPATIBILITY [...] Radiology, Provider - 12/16/2013 12:00 AM CST EDICAL ANALYTICAL SCIENTIST documented in this encounter Plan of Treatment Not on file documented as of this encounter Visit Diagnoses Not on filedocumented in this encounter Care Teams Technical Sales Director Relationship Specialty Start Date End Date Franklin Squires MD 100 [facility] [place] [address] PCP - General Family Practice 03/08/16 documented as of this encounter
--- OUTSIDE RECORDS SUMMARY | 2024-07-20 12:45 | XMS_ITS | Encounter Summary ---
Author Organization [facility] Address [address], [place] [address] Care Team Providers Care Hospice Fellow Name Role Phone Franklin Squires MD Primary Care Provider [phone] Encounter Details Date Type Department Care Team [...] on filedocumented in this encounter Care Teams Hospice Fellow Relationship Specialty Start Date End Date Franklin Squires MD 100 [facility] [place] [address] PCP - General Family Practice 03/08/16 documented as of this encounter
== END 2024-07-20 12:42 | disposition home or self-care (01) ==
LOC: WOUND 12:41
PROVIDERS: PCP Family Medicine; Visit Provider Nurse Practitioner Family
DX: M86.68 Other chronic osteomyelitis, other site (principal); E11.622 Type 2 diabetes mellitus with other skin ulcer; L89.324 Pressure ulcer of left buttock, stage 4; G82.50 Quadriplegia, unspecified
CPT/HCPCS: 11042

== ENCOUNTER 2024-07-27 12:42 | Outpatient (CLI) | payer MEDICARE, OTHER, SELFPAY ==
--- OUTSIDE RECORDS SUMMARY | 2024-07-27 12:44 | XMS_ITS | Encounter Summary ---
Author Name [facility] Address [address] [place] [address] Care Team Providers Care Buyer Assistant Name Role Phone SHANTAL HANSON Primary Care [...] PART B Jul 12, 2004 PART B [id number] [phone] MIKAYLAF RED PATIENT MEDICARE (WNR) MEDICARE (M) PART A Oct 11, 2002 PART A [id number] [id number] [phone] Kasie DEGROOT RED PATIENT Selected Encounter This section includes the information on record at [place] for the Encounter. Date/Time Encounter Type Encounter Description Reason Pro vider Source Jul 23, 2024 08:49 AM Outpatient Encounter COMMUNITY CARE CONSULT IHE Encounter Template Text not used by [facility] Plan of Treatment: Future Appointments (+ 6 months) and Future Tests (+/- 45 days) The Plan of Treatment section includes future care activities for the patient from all [place] treatmentfacilities. This section includes future appointments and future orders which are active, pending or scheduled. Future Appointments This section includes appointments that were scheduled to occur 6 months from the date of the Encounter, up to a maximum of 20 appointments. The data comes from all [place] treatment facilities. Appointment Date/Time Appointment Type Appointme nt Facility Name Jul 30, 2024 01:00 PM AMBULATORY - REHAB MEDICIN E [facility] Advance Directives: All historical and current Section Date Range: From patient's date of to the date document was created. This section includes ALL of a patient's completed or amended [place] Advance and Rescinded Directives. The entries below indicate that a directive exists for the patient, but an actual copy is not included with this document. The data comes from all [facility]. Date Advance Directives Provider Source Feb 05, 2023 ADVANCE DIRECTIVE DISCUSSION GUSTAVO ABAD [facility] Encounter Notes: All associated encounter notes This section contains the clinical notes associated to the Encounter. Date/Time Encounter Note(s) Provider Source Jul 23, 2024 08:49 AM NONVA NOTE: LOCAL TITLE: COMMUNITY CARE-CARE COORDINATION PLAN NOTE STANDARD TITLE: NONVA NOTE DATE OF NOTE: JUL 23, 2024@08:49 ENTRY DATE: JUL 23, 2024@08:49:26 AUTHOR: JOSE ANDERS EXP COSIGNER: URGENCY: STATUS: COMPLETED Request for continuation of Personal Care Services (PCS) received from home care agency: [[facility] Per policy, call placed to [patient/caregiver] to discuss continuation of PCS. First contact attempt Phone [ ]. Left message requesting a call back. Humanities Coordinator will attempt to call again. /el/ Jose Anders RN [facility] [employer] Signed: 07/23/2024 08:50 JOSE ANDERS [facility]
--- OUTSIDE RECORDS SUMMARY | 2024-07-27 12:44 | XMS_ITS | Continuity of Care Document ---
Author Name [facility] Organization [facility] Care Team Providers Care Talent Development Consultant Name Role Phone [facility] Unavailable Unavailable Problems Combined list of problems from 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 It does not include entries that were removed or entered in error. Problem Status Onset Date Problem Type Date of Resolution Comments Source Abnormal liver function Active Condition [facility] Anemia (SCT 211298557) Active Condition [facility] Anxiety ([facility] 26522595) Active Condition [facility] Autonomic dysreflexia Active Condition [facility] Chronic Pain Syndrome (SCT 479401313) Active Condition [facility] Colostomy present Active Condition [facility] Constipation ([facility] 48247644) Active Condition [facility] Continuous opioid dependence Active Condition [facility] COPD - Chronic Obstructive Pulmonary Disease ([facility] 57370614) Active Condition [facility] Dementia Active Condition [facility] Depression ([facility] 84483342) Active Condition [facility] Diabetes Mellitus Type 2 (SCT 26645811) Active Condition [facility] Ependymoma of spinal cord Active Condition [facility] Hearing Loss ([facility] 57833229) Active Condition [facility] History of Deep Vein Thrombosis (SCT 393333329) Active Condition [facility] History of pressure injury Active Condition [facility] HTN - Hypertension (SCT 17404570) Active Condition [facility] Hyperlipidemia ([facility] 82758929) Active Condition [facility] Hyponatremia Active Condition [facility] Long-term current use of anticoagulant Active Condition [facility] Neurogenic Bladder ([facility] 383655204) Active Condition [facility] Neurogenic bowel Active Condition [facility] Osteoporosis ([facility] 95517958) Active Condition [facility] Paraplegia Active Condition [facility] Spasticity Active Condition [facility] Suprapubic urinary catheter in situ Active Condition [facility] Supraventricular tachycardia Active Condition [facility] Tinnitus ([facility] 57245758) Active Condition [facility] Vitamin D Deficiency ([facility] 3785522) Active Condition [facility] Diagnosis: ICD-10-CM Z73.6 Limitation of activities due to disability Active Diagnosis [facility] Diagnosis: ICD-10-CM G82.20 Paraplegia, unspecified Active Diagnosis [facility] Diagnosis: ICD-10-CM Z43.3 Encounter for attention to colostomy Active Diagnosis [facility] Diagnosis: ICD-10-CM Z71.3 Dietary counseling and surveillance Active Diagnosis [facility] Diagnosis: ICD-10-CM F32.A Depression, unspecified Active Diagnosis [facility] Medications Combined list of outpatient medications from Department of Defense and [facility] Affairs facilities.Medications provided include 1) outpatient medications [...] at: [facility] ORAL ACTIVE Jagdish BARRETT 2022 [facility] AMLODIPINE BESYLATE (AMLODIPINE BESYLATE), 5 MG, TABLET, ORAL, [employer] 1000 ea. BOTTLE Active [id number] 2023 90 Pharmac y Data Transac tion Service Facilit y AMLODIPINE BESYLATE (amlodipine besylate), 5 MG, TABLET, ORAL, [employer], 1000 ea. BOTTLE Active [id number] 2023 90 Pharmac y Data Transac tion Service Facilit y AMLODIPINE BESYLATE 2.5MG TAB AMLODIPI NE BESYLATE 2.5MG TAB Non-VA TAKE TWO TABLETS BY MOUTH EVERY MORNING Feb 05, 2023 Non-VA Document ed by: PIPO BARRETT Document ed at: [facility] ORAL ACTIVE Jagdish BARRETT 2022 [facility] AMOX TR-POTASSIU M CLAVULANATE (AMOXICILLI N/POTASSIUM CLAV), 875-125 MG, TABLET, ORAL, [employer], 20 ea. BOTTLE Active [id number] 2022 14 Pharmac y Data Transac tion Service Facilit y AMOXICILLIN -CLAVULANAT E POTASS (amoxicilli n/potassium clavulanate ), 875-125 MG, TABLET, ORAL, [employer] [place],, 20 ea. BOTTLE Active [id number] 2023 20 Pharmac y Data Transac tion Service Facilit y AMOXICILLIN -CLAVULANAT E POTASS (amoxicilli n/potassium clavulanate ), 875-125 MG, TABLET, ORAL, [employer],, 20 ea. BOTTLE Active [id number] 2023 56 Pharmac y Data Transac tion Service Facilit y ARIPIPRAZOL E (aripiprazo le), 2 MG, TABLET, ORAL, [employer]ARMACE, 500 ea. BOTTLE Active [id number] 2023 180 Pharmac y Data Transac tion Service Facilit y ARIPIPRAZOL E (aripiprazo le), 2 MG, TABLET, ORAL, [employer] PHARMACE, 500 ea. BOTTLE Active [id number] 2023 180 Pharmac y Data Transac tion Service Facilit y ARIPIPRAZOL E TAB ARIPIPRA ZOLE TAB Non-VA TAKE 2MG BY MOUTH TWICE A DAY May 29, 2022 Non-VA Document ed by: SHANTAL HANSON Document ed at: [facility] ORAL ACTIVE Jey HANSON 2021 [facility] ATIVAN (LORAZEPAM) , 0.5 MG, TABLET, ORAL, VALEANT, 100 ea. BOTTLE Active [id number] 2023 120 Pharmac y Data Transac tion Service Facilit y ATORVASTATI N CA 80MG TAB ATORVAST ATIN CA 80MG TAB Non-VA TAKE ONE-HALF TABLET BY MOUTH EVERY DAY May 29, 2022 Non-VA Document ed by: SHANTAL HANSON Document ed at: [facility] ORAL ACTIVE Jey HANSON 2021 [facility] ATORVASTATI N CALCIUM (atorvastat in calcium), 40 MG, TABLET, ORAL, BIOCON PHARMA I, 1000 ea. BOTTLE Active [id number] 2023 90 Pharmac y Data Transac tion Service Facilit y ATORVASTATI N CALCIUM (atorvastat in calcium), 40 MG, TABLET, ORAL, BIOCON PHARMA I, 1000 ea. BOTTLE Active [id number] 2023 90 Pharmac y Data Transac tion Service Facilit y BACLOFEN 20MG TAB BACLOFEN 20MG TAB Non-VA TAKE TWO TABLETS BY MOUTH THREE TIMES A DAY Feb 05, 2023 Non-VA Document ed by: PIPO BARRETT Document ed at: [facility] ORAL ACTIVE Jagdish BARRETT 2022 [facility] BUPROPION HCL 150MG 12HR TAB,SA BUPROPIO N HCL 150MG 12HR TAB,SA Non-VA TAKE ONE TABLET BY MOUTH TWICE A DAY May 29, 2022 Non-VA Document ed by: SHANTAL HANSON Document ed at: [facility] ORAL ACTIVE Jey HANSON 2021 [facility] BUPROPION HCL SR (bupropion HCl), 150 MG, TAB SR 12H, ORAL, [employer]ARMACEU, 60 ea. BOTTLE Active [id number] 2023 180 Pharmac y Data Transac tion Service Facilit y BUPROPION HCL SR (bupropion HCl), 150 MG, TAB SR 12H, ORAL, P[employer], 60 ea. BOTTLE Active [id number] 2023 180 Pharmac y Data Transac tion Service Facilit y CEPHALEXIN 250MG CAP CEPHALEX IN 250MG CAP Non-VA TAKE 1 CAPSULE BY MOUTH EVERY DAY May 29, 2022 Non-VA Document ed by: SHANTAL HANSON Document ed at: [facility] ORAL ACTIVE Jey HANSON M 2021 [facility] CHOLECALCIF GILSON 25MCG (1,000UNIT) TAB CHOLECAL CIFEROL 25MCG (1,000UN IT) TAB Non-VA TAKE ONE TABLET BY MOUTH EVERY DAY May 29, 2022 Non-VA Document ed by: SHANTAL HANSON Document ed at: [facility] ORAL ACTIVE Jey HANSON 2021 [facility] CIPROFLOXAC IN HCL (CIPROFLOXA SHAR HCL), 750 MG, TABLET, ORAL, [employer]OB[employer]O PHARM, 50 ea. BOTTLE Active [id number] 2023 70 Pharmac y Data Transac tion Service Facilit y DONEPEZIL HCL (DONEPEZIL HCL), 5 MG, TABLET, ORAL, [employer] 1000 ea. BOTTLE Active [id number] 2023 90 Pharmac y Data Transac tion Service Facilit y DONEPEZIL HCL (DONEPEZIL HCL), 5 MG, TABLET, ORAL, [employer] 1000 ea. BOTTLE Cancele d [id number] : 2023 0 Pharmac y Data Transac tion Service Facilit y DONEPEZIL HCL (DONEPEZIL HCL), 5 MG, TABLET, ORAL, [employer] 1000 ea. BOTTLE Active [id number] 2023 90 Pharmac y Data Transac tion Service Facilit y DONEPEZIL HCL 10MG TAB DONEPEZI L HCL 10MG TAB Non-VA TAKE ONE-HALF TABLET BY MOUTH EVERY DAY May 29, 2022 Non-VA Document ed by: SHANTAL HANSON Document ed at: [facility] ORAL ACTIVE Jey HANSON 2021 [facility] DULOXETINE HCL (duloxetine HCl), 60 MG, CAPSULE DR, ORAL, [employer] 1000 ea. BOTTLE Active [id number] 2023 180 Pharmac y Data Transac tion Service Facilit y DULOXETINE HCL (duloxetine HCl), 60 MG, CAPSULE DR, ORAL, [employer] 1000 ea. BOTTLE Active [id number] 2023 180 Pharmac y Data Transac tion Service Facilit y DULOXETINE HCL 30MG CAP,EC DULOXETI NE HCL 30MG CAP,EC Non-VA TAKE 2 CAPSULES BY MOUTH TWICE A DAY May 29, 2022 Non-VA Document ed by: SHANTAL HASNON Document ed at: [facility] ORAL ACTIVE Jey HANSON 2021 [facility] FAMOTIDINE (famotidine ), 20 MG, TABLET, ORAL, [employer] 1000 ea. BOTTLE Active [id number] 2023 180 Pharmac y Data Transac tion Service Facilit y FAMOTIDINE 20MG TAB FAMOTIDI NE 20MG TAB Non-VA TAKE ONE TABLET BY MOUTH TWICE A DAY May 29, 2022 Non-VA Document ed by: SHANTAL HANSON Document ed at: [facility] ORAL ACTIVE Jey HANSON 2021 [facility] FUROSEMIDE (furosemide ), 40 MG, TABLET, ORAL, [employer], 1000 ea. BOTTLE Active [id number] 2023 180 Pharmac y Data Transac tion Service Facilit y FUROSEMIDE 40MG TAB FUROSEMI DE 40MG TAB Non-VA TAKE ONE TABLET BY MOUTH TWICE A DAY May 29, 2022 Non-VA Document ed by: SHANTAL HANSON Document ed at: [facility] ORAL ACTIVE Jey HANSON 2021 [facility] GABAPENTIN (gabapentin ), 400 MG, CAPSULE, ORAL, [employer] 500 ea. BOTTLE Active [id number] 2023 270 Pharmac y Data Transac tion Service Facilit y GABAPENTIN (gabapentin ), 400 MG, CAPSULE, ORAL, [employer] PHARMAC, 500 ea. BOTTLE Active [id number] 2023 270 Pharmac y Data Transac tion Service Facilit y GABAPENTIN (gabapentin ), 400 MG, CAPSULE, ORAL, [employer] PHARMACE, 500 ea. BOTTLE Cancele d [id number] : 2023 0 Pharmac y Data Transac tion Service Facilit y GABAPENTIN 400MG CAP GABAPENT IN 400MG CAP Non-VA TAKE 1 CAPSULE BY MOUTH THREE TIMES A DAY May 29, 2022 Non-VA Document ed by: SHANTAL HANSON Document ed at: [facility] ORAL ACTIVE Jey HANSON 2021 [facility] LORAZEPAM (lorazepam) , 0.5 MG, TABLET, ORAL, [employer] PHARM, 500 ea. BOTTLE Active [id number] 2023 120 Pharmac y Data Transac tion Service Facilit y LORAZEPAM (lorazepam) , 0.5 MG, TABLET, ORAL, [employer]ARMA, 1000 ea. BOTTLE Active [id number] 2023 120 Pharmac y Data Transac tion Service Facilit y LORAZEPAM (lorazepam) , 0.5 MG, TABLET, ORAL, [employer] PHARMA, 1000 ea. BOTTLE Active [id number] 2023 120 Pharmac y Data Transac tion Service Facilit y LORAZEPAM (lorazepam) , 0.5 MG, TABLET, ORAL, LE[employer] PHARMA, 1000 ea. BOTTLE Active [id number] 2023 120 Pharmac y Data Transac tion Service Facilit y LORAZEPAM (lorazepam) , 0.5 MG, TABLET, ORAL, LEAD[employer] PHARMA, 500 ea. BOTTLE Active [id number] 2023 120 Pharmac y Data Transac tion Service Facilit y LORAZEPAM 0.5MG TAB LORAZEPA M 0.5MG TAB Non-VA TAKE ONE TABLET BY MOUTH THREE TIMES A DAY AND TAKE TWO TABLETS BY MOUTH AT BEDTIME Feb 05, 2023 Non-VA Document ed by: PIPO BARRETT Document ed at: [facility] ORAL ACTIVE Jagdish BARRETT 2022 [facility] MILK OF MAGNESIA MILK OF [...] at: [facility] NASAL ACTIVE Jagdish BARRETT 2022 [facility] OXYCODONE HCL (OXYCODONE HCL), 10 MG, TABLET, ORAL, [employer] 100 ea. BOTTLE Active [id number] 2023 120 Pharmac y Data Transac tion Service Facilit y OXYCODONE HCL (OXYCODONE HCL), 10 MG, TABLET, ORAL, [employer] 100 ea. BOTTLE Active [id number] 2023 120 Pharmac y Data Transac tion Service Facilit y OXYCODONE HCL (OXYCODONE HCL), 10 MG, TABLET, ORAL, [employer] 100 ea. BOTTLE Active [id number] 2023 120 Pharmac y Data Transac tion Service Facilit y OXYCODONE HCL (OXYCODONE HCL), 10 MG, TABLET, ORAL, [employer] 100 ea. BOTTLE Active [id number] 2023 120 Pharmac y Data Transac tion Service Facilit y OXYCODONE HCL (OXYCODONE HCL), 10 MG, TABLET, ORAL, [employer] 100 ea. BOTTLE Active [id number] 2023 120 Pharmac y Data Transac tion Service Facilit y OXYCODONE HCL (OXYCODONE HCL), 10 MG, TABLET, ORAL, [employer] 100 ea. BOTTLE Active [id number] 2023 120 Pharmac y Data Transac tion Service Facilit y OXYCODONE HCL (OXYCODONE HCL), 10 MG, TABLET, ORAL, [employer] 100 ea. BOTTLE Active [id number] 2022 120 Pharmac y Data Transac tion Service Facilit y OXYCODONE HCL 5MG TAB OXYCODON E HCL 5MG TAB Non-VA TAKE TWO TABLETS BY MOUTH FOUR TIMES A DAY Feb 05, 2023 Non-VA Document ed by: PIPO BARRETT Document ed at: [facility] ORAL ACTIVE Jagdish BARRETT 2022 [facility] POTASSIUM CHLORIDE (potassium chloride), 10 MEQ, TAB ER PRT, ORAL, [employer] PHARMACE, 100 ea. BOTTLE Active [id number] 2023 180 Pharmac y Data Transac tion Service Facilit y POTASSIUM CHLORIDE (potassium chloride), 10 MEQ, TAB ER PRT, ORAL, [employer] PHARMACE, 100 ea. BOTTLE Active [id number] 2023 180 Pharmac y Data Transac tion Service Facilit y POTASSIUM CHLORIDE (potassium chloride), 20 MEQ, TAB ER PRT, ORAL, [employer] PHARMACE, 100 ea. BOTTLE Active [id number] 2023 90 Pharmac y Data Transac [...] WHITLOCK&N/UNI LUIS, 30 g TUBE Cancele d [id number] : 2023 0 Pharmac y Data Transac tion Service Facilit y WARFARIN SODIUM (warfarin sodium), 5 MG, TABLET, ORAL, [employer]., 1000 ea. BOTTLE Cancele d [id number] : 2022 0 Pharmac y Data Transac tion Service Facilit y WARFARIN SODIUM (WARFARIN SODIUM), 5 MG, TABLET, ORAL, [employer], 1000 ea. BOTTLE Active [id number] 2023 25 Pharmac y Data Transac tion Service Facilit y WARFARIN SODIUM (WARFARIN SODIUM), 5 MG, TABLET, ORAL, [employer], 1000 ea. BOTTLE Active [id number] 2023 12 Pharmac y Data Transac tion Service Facilit y WARFARIN SODIUM (WARFARIN SODIUM), 5 MG, TABLET, ORAL, [employer] [place], 1000 ea. BOTTLE Active [id number] 2023 40 Pharmac y Data Transac tion Service Facilit y WARFARIN SODIUM (WARFARIN SODIUM), 5 MG, TABLET, ORAL, [employer] [place], 1000 ea. BOTTLE Cancele d [id number] : 2022 0 Pharmac y Data Transac tion Service Facilit y WARFARIN SODIUM (warfarin sodium), 7.5 MG, TABLET, ORAL, [employer] [place], 100 ea. BOTTLE Active [id number] 2023 51 Pharmac y Data Transac tion Service Facilit y WARFARIN SODIUM (warfarin sodium), 7.5 MG, TABLET, ORAL, [employer] [place], 100 ea. BOTTLE Active [id number] 2023 78 Pharmac y Data Transac tion Service Facilit y WARFARIN TAB WARFARIN TAB Non-VA TAKE 5MG BY MOUTH SUN/THUR S AND TAKE 7.5MG BY MOUTH ALL OTHER DAYS Feb 05, 2023 Non-VA Document ed by: PIPO BARRETT Document ed at: [facility] ORAL ACTIVE Jagdish BARRETT 2022 [facility] Allergies, Adverse Reactions, Alerts Combined list of allergies from 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 It does not include entries that were removed or entered in error. Substance Category Reaction Severity Reaction type Status Date Reported Comments Source AMOXICILLIN Propensity to adverse reactions to drug (finding) Eruption active 2 [facility] METOLAZONE Propensity to adverse reactions to drug (finding) Itching active 2 [facility] MORPHINE Propensity to adverse reactions to drug (finding) Delirium active 2 [facility] PIPERACILLIN Propensity to adverse reactions to drug (finding) Eruption active 2 [place] [facility] SULFA DRUGS Propensity to adverse reactions to drug (finding) Eruption active 2 [facility] TAZOBACTAM SODIUM Propensity to adverse reactions to drug (finding) Eruption active 2 [facility] Immunizations Combined list of available immunizations from the 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 Property Manager Status Comments Source COVID-19 (iiMonde), MRNA, LNP-S, BIVALENT, PF, 30 MCG/0.3 ML DOSE 2021 300 complet ed [facility] INFLUENZA, ADJUVANTED, QUADRIVALENT, PF 2021 205 complet ed [facility] INFLUENZA, UNSPECIFIED FORMULATION 2021 88 complet ed [place] recall [facility] TD (ADULT), 5 LF TETANUS TOXOID, PRESERVATIVE FREE, ADSORBED 2021 113 complet ed [facility] INFLUENZA, ADJUVANTED, QUADRIVALENT, PF 2020 205 complet ed [facility] INFLUENZA, UNSPECIFIED FORMULATION 2020 88 complet ed [facility] COVID-19 (PFIZER), MRNA, LNP-S, PF, 30 MCG/0.3 ML DOSE 3 2020 208 complet ed [facility] COVID-19 (PFIZER), MRNA, LNP-S, PF, 30 MCG/0.3 ML DOSE 2 2020 208 complet ed [facility] COVID-19 (iiMonde), MRNA, LNP-S, PF, 30 MCG/0.3 ML DOSE 1 2020 208 complet ed [facility] INFLUENZA, ADJUVANTED, QUADRIVALENT, PF 2019 205 complet ed [facility] INFLUENZA, ADJUVANTED, TRIVALENT, PF 2018 168 complet ed [facility] INFLUENZA, ADJUVANTED, TRIVALENT, PF 2017 168 complet ed [facility] INFLUENZA, HIGH-DOSE, TRIVALENT, PF 2016 135 complet ed [facility] INFLUENZA, ADJUVANTED, TRIVALENT, PF 2016 168 complet ed [facility] INFLUENZA, HIGH-DOSE, TRIVALENT, PF 2015 135 complet ed [facility] ZOSTER LIVE 2015 121 complet ed [facility] PNEUMOCOCCAL CONJUGATE PCV 13 2014 133 complet ed [facility] INFLUENZA, HIGH-DOSE, TRIVALENT, PF 2014 135 complet ed [facility] INFLUENZA, HIGH-DOSE, TRIVALENT, PF 2013 135 complet ed [facility] INFLUENZA, UNSPECIFIED FORMULATION 2013 88 complet ed [facility] INFLUENZA, SPLIT VIRUS, TRIVALENT, PRESERVATIVE 2012 141 complet ed [facility] ZOSTER LIVE 2012 121 complet ed [facility] INFLUENZA, SPLIT VIRUS, TRIVALENT, PRESERVATIVE 2011 141 complet ed [facility] INFLUENZA, SPLIT VIRUS, TRIVALENT, PF 2010 140 complet ed [facility] PNEUMOCOCCAL POLYSACCHARID E PPV23 2010 33 complet ed [facility] TDAP 2010 115 complet ed [facility] INFLUENZA, SPLIT VIRUS, TRIVALENT, PRESERVATIVE 2009 141 complet ed [facility] NOVEL INFLUENZA-H1N 1-09, ALL FORMULATIONS 2009 128 complet ed [facility] INFLUENZA, SPLIT VIRUS, TRIVALENT, PF 2008 140 complet ed [facility] PNEUMOCOCCAL POLYSACCHARID E PPV23 2008 33 complet ed [facility] INFLUENZA, SPLIT VIRUS, TRIVALENT, PRESERVATIVE 2008 141 complet ed [facility] INFLUENZA, SPLIT VIRUS, TRIVALENT, PRESERVATIVE 2007 141 complet ed [facility] INFLUENZA, SPLIT VIRUS, TRIVALENT, PRESERVATIVE 2005 141 complet ed [facility] INFLUENZA, SPLIT VIRUS, TRIVALENT, PRESERVATIVE 2004 141 complet ed [facility] PNEUMOCOCCAL POLYSACCHARID E PPV23 2004 33 complet ed [facility] INFLUENZA, SPLIT VIRUS, TRIVALENT, PRESERVATIVE 2003 141 complet ed [facility] Results Combined list of recent chemistry, [...] Feb 05, 2023 03:10 PM Reporting Lab: [facility] [address] Performing Lab: [facility] [address] [place] [facility] BASIC METABOLI C PANEL+MG UREA NITROGEN [MASS/VOLU ME] IN SERUM OR PLASMA 15 mg/dL 8 - 02/13 Specimen Type: PLASMA No comment entered. Ordering Provider: ANKUSH BOWMAN Report Released Date/Time: Feb 05, 2023 03:10 PM Reporting Lab: [facility] [address] Performing Lab: [facility] [address] [place] [facility] BASIC METABOLI C PANEL+MG GLUCOSE [MASS/VOLU ME] IN SERUM OR PLASMA 140 mg/dL 70 - 100 02/13 H Specimen Type: PLASMA No comment entered. Ordering Provider: ANKUSH BOWMAN Report Released Date/Time: Feb 05, 2023 03:10 PM Reporting Lab: [facility] [address] Performing Lab: [facility] [address] [place] [facility] BASIC METABOLI C PANEL+MG SODIUM [MOLES/VOL UME] IN SERUM OR PLASMA 135 mmol/L 136 - 145 02/13 L Specimen Type: PLASMA No comment entered. Ordering Provider: ANKUSH BOWMAN Report Released Date/Time: Feb 05, 2023 03:10 PM Reporting Lab: [facility] [address] Performing Lab: [facility] [address] [place] [facility] BASIC METABOLI C PANEL+MG POTASSIUM [MOLES/VOL UME] IN SERUM OR PLASMA 4.0 mmol/L 3.5 - 5.1 02/13 Specimen Type: PLASMA No comment entered. Ordering Provider: ANKUSH BOWMAN Report Released Date/Time: Feb 05, 2023 03:10 PM Reporting Lab: [facility] [address] Performing Lab: [facility] [address] [place] [facility] BASIC METABOLI C PANEL+MG CHLORIDE [MOLES/VOL UME] IN SERUM OR PLASMA 99 mmol/L 98 - 107 02/13 Specimen Type: PLASMA No comment entered. Ordering Provider: ANKUSH BOWMAN Report Released Date/Time: Feb 05, 2023 03:10 PM Reporting Lab: [facility] [address] Performing Lab: [facility] [address] [place] [facility] BASIC METABOLI C PANEL+MG CARBON DIOXIDE, TOTAL [MOLES/VOL UME] IN SERUM OR PLASMA 29 mmol/L 22 - 29 02/13 Specimen Type: PLASMA No comment entered. Ordering Provider: ANKUSH BOWMAN Report Released Date/Time: Feb 05, 2023 03:10 PM Reporting Lab: [facility] [address] Performing Lab: [facility] [address] [place] [facility] BASIC METABOLI C PANEL+MG CALCIUM [MASS/VOLU ME] IN SERUM OR PLASMA 9.2 mg/dL 8.4 - 10.2 02/13 Specimen Type: PLASMA No comment entered. Ordering Provider: ANKUSH BOWMAN Report Released Date/Time: Feb 05, 2023 03:10 PM Reporting Lab: [facility] [address] Performing Lab: [facility] [address] [place] [facility] BASIC METABOLI C PANEL+MG MAGNESIUM [MASS/VOLU ME] IN SERUM OR PLASMA 2.0 mg/dL 1.6 - 2.6 02/13 Specimen Type: PLASMA No comment entered. Ordering Provider: ANKUSH BOWMAN Report Released Date/Time: Feb 05, 2023 03:10 PM Reporting Lab: [facility] [address] Performing Lab: [facility] [address] [place] [facility] BASIC METABOLI C PANEL+MG ANION GAP IN SERUM OR PLASMA 7 mmol/L 5 - 15 02/13 Specimen Type: PLASMA No comment entered. Ordering Provider: ANKUSH BOWMAN Report Released Date/Time: Feb 05, 2023 03:10 PM Reporting Lab: [facility] [address] Performing Lab: [facility] [address] [place] [facility] BASIC METABOLI C PANEL+MG GLOMERULAR FILTRATION RATE/1.73 SQ M.PREDICTE D [VOLUME RATE/AREA] IN SERUM, PLASMA OR BLOOD BY CREATININE -BASED FORMULA (CKD-EPI) >90 60 02/13 Specimen Type: PLASMA No comment entered. Ordering Provider: ANKUSH BOWMAN Report Released Date/Time: Feb 05, 2023 03:10 PM Reporting Lab: [facility] [address] Performing Lab: [facility] [address] [place] [facility] CYSTATIN C WITH EGFR CYSTATIN C [MASS/VOLU ME] IN SERUM OR PLASMA 1.27 mg/L 0.51 - 1.05 02/13 H Specimen Type: PLASMA No comment entered. Ordering Provider: ANKUSH BOWMAN Report Released Date/Time: Feb 05, 2023 03:10 PM Reporting Lab: [facility] [address] Performing Lab: [facility] [address] [place] [facility] CYSTATIN C WITH EGFR CYSTATIN C AND GLOMERULAR FILTRATION RATE BY CYSTATIN C-BASED FORMULA PANEL - SERUM OR PLASMA 53 60 02/13 L Specimen Type: PLASMA No comment entered. Ordering Provider: ANKUSH BOWMAN Report Released Date/Time: Feb 05, 2023 03:10 PM Reporting Lab: [facility] [address] Performing Lab: [facility] [address] [place] [facility] URINALYS IS COLOR OF URINE YELLOW 10/08 Specimen Type: URINE No comment entered. Ordering Provider: ANKUSH BOWMAN Report Released Date/Time: Sep 24, 2022 01:55 PM Reporting Lab: [facility] [address] Performing Lab: [facility] [address] [place] [facility] URINALYS IS SPECIFIC GRAVITY OF URINE 1.023 1.003 - 1.035 10/08 Specimen Type: URINE No comment entered. Ordering Provider: ANKUSH BOWMAN Report Released Date/Time: Sep 24, 2022 01:55 PM Reporting Lab: [facility] [address] Performing Lab: [facility] [address] [place] [facility] URINALYS IS BILIRUBIN. TOTAL [PRESENCE] IN URINE BY TEST STRIP NEGATIVE 10/08 Specimen Type: URINE No comment entered. Ordering Provider: ANKUSH BOWMAN Report Released Date/Time: Sep 24, 2022 01:55 PM Reporting Lab: [facility] [address] Performing Lab: [facility] [address] [place] [facility] URINALYS IS KETONES [MASS/VOLU ME] IN URINE BY TEST STRIP NEGATIVE 10/08 Specimen Type: URINE No comment entered. Ordering Provider: ANKUSH BOWMAN Report Released Date/Time: Sep 24, 2022 01:55 PM Reporting Lab: [facility] [address] Performing Lab: [facility] [address] [place] [facility] URINALYS IS GLUCOSE [MASS/VOLU ME] IN URINE BY TEST STRIP NEGATIVE mg/dL <30 - 30 10/08 Specimen Type: URINE No comment entered. Ordering Provider: ANKUSH BOWMAN Report Released Date/Time: Sep 24, 2022 01:55 PM Reporting Lab: [facility] [address] Performing Lab: [facility] [address] [place] [facility] URINALYS IS PROTEIN [MASS/VOLU ME] IN URINE BY TEST STRIP 30 mg/dL <20 - 20 10/08 Specimen Type: URINE No comment entered. Ordering Provider: ANKUSH BOWMAN Report Released Date/Time: Sep 24, 2022 01:55 PM Reporting Lab: [facility] [address] Performing Lab: [facility] [address] [place] [facility] URINALYS IS PH OF URINE BY TEST STRIP 7.5 5.0 - 8.0 10/08 Specimen Type: URINE No comment entered. Ordering Provider: ANKUSH BOWMAN Report Released Date/Time: Sep 24, 2022 01:55 PM Reporting Lab: [facility] [address] Performing Lab: [facility] [address] [place] [facility] URINALYS IS LEUKOCYTES [#/AREA] IN URINE SEDIMENT BY MICROSCOPY HIGH POWER FIELD >180/[HP F] 0 - 7 10/08 H Specimen Type: URINE No comment entered. Ordering Provider: ANKUSH BOWMAN Report Released Date/Time: Sep 24, 2022 01:55 PM Reporting Lab: [facility] [address] Performing Lab: [facility] [address] [place] [facility] URINALYS IS BACTERIA [PRESENCE] IN URINE SEDIMENT BY LIGHT MICROSCOPY MANY 10/08 Specimen Type: URINE No comment entered. Ordering Provider: ANKUSH BOWMAN Report Released Date/Time: Sep 24, 2022 01:55 PM Reporting Lab: [facility] [address] Performing Lab: [facility] [address] [facility] ERYTHROCYT ES [#/AREA] IN URINE SEDIMENT BY MICROSCOPY HIGH POWER FIELD 33 /[HPF] 0 - 3 10/08 H Specimen Type: URINE No comment entered. Ordering Provider: ANKUSH BOWMAN Report Released Date/Time: Sep 24, 2022 01:55 PM Reporting Lab: [facility] [address] Performing Lab: [facility] [address] [facility] APPEARANCE OF URINE EX.TURBI D 10/08 Specimen Type: URINE No comment entered. Ordering Provider: ANKUSH BOWMAN Report Released Date/Time: Sep 24, 2022 01:55 PM Reporting Lab: [facility] [address] Performing Lab: [facility] [address] [place] [facility] URINALYS IS EPITHELIAL CELLS.SQUA MOUS [#/AREA] IN URINE SEDIMENT BY MICROSCOPY HIGH POWER FIELD 1 /[HPF] 10/08 Specimen Type: URINE No comment entered. Ordering Provider: ANKUSH BOWMAN Report Released Date/Time: Sep 24, 2022 01:55 PM Reporting Lab: [facility] [address] Performing Lab: [facility] [address] [place] [facility] URINALYS IS HEMOGLOBIN [PRESENCE] IN URINE BY TEST STRIP 1+ 10/08 Specimen Type: URINE No comment entered. Ordering Provider: ANKUSH BOWMAN Report Released Date/Time: Sep 24, 2022 01:55 PM Reporting Lab: [facility] [address] Performing Lab: [facility] [address] [place] [facility] URINALYS IS NITRITE [PRESENCE] IN URINE BY TEST STRIP NEGATIVE 10/08 Specimen Type: URINE No comment entered. Ordering Provider: ANKUSH BOWMAN Report Released Date/Time: Sep 24, 2022 01:55 PM Reporting Lab: [facility] [address] Performing Lab: [facility] [address] [place] [facility] URINALYS IS LEUKOCYTE CLUMPS [#/VOLUME] IN URINE BY AUTOMATED COUNT PRESENT 10/08 Specimen Type: URINE No comment entered. Ordering Provider: ANKUSH BOWMAN Report Released Date/Time: Sep 24, 2022 01:55 PM Reporting Lab: [facility] [address] Performing Lab: [facility] [address] [place] [facility] URINALYS IS LEUKOCYTE ESTERASE [PRESENCE] IN URINE BY TEST STRIP 500 10/08 Specimen Type: URINE No comment entered. Ordering Provider: ANKUSH BOWMAN Report Released Date/Time: Sep 24, 2022 01:55 PM Reporting Lab: [facility] [address] Performing Lab: [facility] [address] [place] [facility] ALBUMIN ALBUMIN [MASS/VOLU ME] IN SERUM OR PLASMA 4.2 g/dL 3.5 - 5.2 10/08 Specimen Type: PLASMA No comment entered. Ordering Provider: ANKUSH BOWMAN Report Released Date/Time: Sep 24, 2022 01:55 PM Reporting Lab: [facility] [address] Performing Lab: [facility] [address] [place] [facility] CBC & DIFF LEUKOCYTES [#/VOLUME] IN BLOOD BY AUTOMATED COUNT 7.32 10*3/uL 4.0 - 11.0 10/08 Specimen Type: BLOOD Comment: Automated Differentia l Performed Ordering Provider: ANKUSH BOWMAN Report Released Date/Time: Sep 24, 2022 01:55 PM Reporting Lab: [facility] [address] Performing Lab: [facility] [address] [place] [facility] CBC & DIFF ERYTHROCYT ES [#/VOLUME] IN BLOOD BY AUTOMATED COUNT 4.80 10*6/uL 4.6 - 6.2 10/08 Specimen Type: BLOOD Comment: Automated Differentia l Performed Ordering Provider: NAKUSH BOWMAN Report Released Date/Time: Sep 24, 2022 01:55 PM Reporting Lab: [facility] [address] Performing Lab: [facility] [address] [place] [facility] CBC & DIFF HEMOGLOBIN [MASS/VOLU ME] IN BLOOD 14.7 g/dL 13.5 - 17.9 10/08 Specimen Type: BLOOD Comment: Automated Differentia l Performed Ordering Provider: ANKUSH BOWMAN Report Released Date/Time: Sep 24, 2022 01:55 PM Reporting Lab: [facility] [address] Performing Lab: [facility] [address] [place] [facility] CBC & DIFF HEMATOCRIT [VOLUME FRACTION] OF BLOOD BY AUTOMATED COUNT 44.2 41 - 54 10/08 Specimen Type: BLOOD Comment: Automated Differentia l Performed Ordering Provider: ANKUSH BOWMAN Report Released Date/Time: Sep 24, 2022 01:55 PM Reporting Lab: [facility] [address] Performing Lab: [facility] [address] [place] [facility] CBC & DIFF MCV [ENTITIC VOLUME] BY AUTOMATED COUNT 92.1 fL 80 - 100 10/08 Specimen Type: BLOOD Comment: Automated Differentia l Performed Ordering Provider: ANKUSH BOWMAN Report Released Date/Time: Sep 24, 2022 01:55 PM Reporting Lab: [facility] [address] Performing Lab: [facility] [address] [place] [facility] CBC & DIFF MCH [ENTITIC MASS] BY AUTOMATED COUNT 30.6 pg 27 - 33 10/08 Specimen Type: BLOOD Comment: Automated Differentia l Performed Ordering Provider: ANKUSH BOWMAN Report Released Date/Time: Sep 24, 2022 01:55 PM Reporting Lab: [facility] [address] Performing Lab: [facility] [address] [place] [facility] CBC & DIFF MCHC [MASS/VOLU ME] BY AUTOMATED COUNT 33.3 g/dL 32.0 - 37.5 10/08 Specimen Type: BLOOD Comment: Automated Differentia l Performed Ordering Provider: ANKUSH BOWMAN Report Released Date/Time: Sep 24, 2022 01:55 PM Reporting Lab: [facility] [address] Performing Lab: [facility] [address] [place] [facility] CBC & DIFF PLATELETS [#/VOLUME] IN BLOOD BY AUTOMATED COUNT 144 10*3/uL 150 - 400 10/08 L Specimen Type: BLOOD Comment: Automated Differentia l Performed Ordering Provider: ANKUSH BOWMAN Report Released Date/Time: Sep 24, 2022 01:55 PM Reporting Lab: [facility] [address] Performing Lab: [facility] [address] [place] [facility] CBC & DIFF PLATELET MEAN VOLUME [ENTITIC VOLUME] IN BLOOD BY AUTOMATED COUNT 10.8 fL 7.4 - 10.4 10/08 H Specimen Type: BLOOD Comment: Automated Differentia l Performed Ordering Provider: ANKUSH BOWMAN Report Released Date/Time: Sep 24, 2022 01:55 PM Reporting Lab: [facility] [address] Performing Lab: [facility] [address] [place] [facility] CBC & DIFF NEUTROPHIL S/100 LEUKOCYTES IN BLOOD BY MANUAL COUNT 55.5 10/08 Specimen Type: BLOOD Comment: Automated Differentia l Performed Ordering Provider: ANKUSH BOWMAN Report Released Date/Time: Sep 24, 2022 01:55 PM Reporting Lab: [facility] [address] Performing Lab: [facility] [address] [place] [facility] CBC & DIFF LYMPHOCYTE S/100 LEUKOCYTES IN BLOOD BY MANUAL COUNT 31.4 10/08 Specimen Type: BLOOD Comment: Automated Differentia l Performed Ordering Provider: ANKUSH BOWMAN Report Released Date/Time: Sep 24, 2022 01:55 PM Reporting Lab: [facility] [address] Performing Lab: [facility] [address] [place] [facility] CBC & DIFF MONOCYTES/ 100 LEUKOCYTES IN BLOOD BY AUTOMATED COUNT 10.2 10/08 Specimen Type: BLOOD Comment: Automated Differentia l Performed Ordering Provider: ANKUSH BOWMAN Report Released Date/Time: Sep 24, 2022 01:55 PM Reporting Lab: [facility] [address] Performing Lab: [facility] [address] [place] [facility] CBC & DIFF EOSINOPHIL S/100 LEUKOCYTES IN BLOOD BY AUTOMATED COUNT 2.2 10/08 Specimen Type: BLOOD Comment: Automated Differentia l Performed Ordering Provider: ANKUSH BOWMAN Report Released Date/Time: Sep 24, 2022 01:55 PM Reporting Lab: [facility] [address] Performing Lab: [facility] [address] [place] [facility] CBC & DIFF BASOPHILS/ 100 LEUKOCYTES IN BLOOD BY MANUAL COUNT 0.4 10/08 Specimen Type: BLOOD Comment: Automated Differentia l Performed Ordering Provider: ANKUSH BOWMAN Report Released Date/Time: Sep 24, 2022 01:55 PM Reporting Lab: [facility] [address] Performing Lab: [facility] [address] [place] [facility] CBC & DIFF ERYTHROCYT E DISTRIBUTI ON WIDTH [RATIO] BY AUTOMATED COUNT 15.9 11.5 - 14.5 10/08 H Specimen Type: BLOOD Comment: Automated Differentia l Performed Ordering Provider: ANKUSH BOWMAN Report Released Date/Time: Sep 24, 2022 01:55 PM Reporting Lab: [facility] [address] Performing Lab: [facility] [address] [place] [facility] CBC & DIFF LYMPHOCYTE S [#/VOLUME] IN BLOOD BY AUTOMATED COUNT 2.30 10*3/uL 1.0 - 4.0 10/08 Specimen Type: BLOOD Comment: Automated Differentia l Performed Ordering Provider: ANKUSH BOWMAN Report Released Date/Time: Sep 24, 2022 01:55 PM Reporting Lab: [facility] [address] Performing Lab: [facility] [address] [place] [facility] CBC & DIFF MONOCYTES [#/VOLUME] IN BLOOD BY AUTOMATED COUNT 0.75 10*3/uL 0.1 - 1.0 10/08 Specimen Type: BLOOD Comment: Automated Differentia l Performed Ordering Provider: ANKUSH BOWMAN Report Released Date/Time: Sep 24, 2022 01:55 PM Reporting Lab: [facility] [address] Performing Lab: [facility] [address] [place] [facility] CBC & DIFF NEUTROPHIL S [#/VOLUME] IN BLOOD BY AUTOMATED COUNT 4.06 10*3/uL 2.0 - 7.7 10/08 Specimen Type: BLOOD Comment: Automated Differentia l Performed Ordering Provider: ANKUSH BOWMAN Report Released Date/Time: Sep 24, 2022 01:55 PM Reporting Lab: [facility] [address] Performing Lab: [facility] [address] [place] [facility] CBC & DIFF EOSINOPHIL S [#/VOLUME] IN BLOOD BY AUTOMATED COUNT 0.16 10*3/uL 0 - 0.5 10/08 Specimen Type: BLOOD Comment: Automated Differentia l Performed Ordering Provider: ANKUSH BOWMAN Report Released Date/Time: Sep 24, 2022 01:55 PM Reporting Lab: [facility] [address] Performing Lab: [facility] [address] [place] [facility] CBC & DIFF BASOPHILS [#/VOLUME] IN BLOOD BY AUTOMATED COUNT 0.03 10*3/uL 0 - 0.2 10/08 Specimen Type: BLOOD Comment: Automated Differentia l Performed Ordering Provider: ANKUSH BOWMAN Report Released Date/Time: Sep 24, 2022 01:55 PM Reporting Lab: [facility] [address] Performing Lab: [facility] [address] [place] [facility] CBC & DIFF IG(META,MY MALACHI,PRO) 0.3 10/08 Specimen Type: BLOOD Comment: Automated Differentia l Performed Ordering Provider: ANKUSH BOWMAN Report Released Date/Time: Sep 24, 2022 01:55 PM Reporting Lab: [facility] [address] Performing Lab: [facility] [address] [place] [facility] CBC & DIFF IMMATURE GRANULOCYT ES [PRESENCE] IN BLOOD BY AUTOMATED COUNT 0.02 10*3/uL 0 - 0.1 10/08 Specimen Type: BLOOD Comment: Automated Differentia l Performed Ordering Provider: ANKUSH BOWMAN Report Released Date/Time: Sep 24, 2022 01:55 PM Reporting Lab: [facility] [address] Performing Lab: [facility] [address] [place] [facility] COMPREHE NSIVE METABOLI C PANEL+MG CREATININE [MASS/VOLU ME] IN SERUM OR PLASMA 0.7 mg/dL 0.7 - 1.2 10/08 Specimen Type: PLASMA No comment entered. Ordering Provider: ANKUSH BOWMAN Report Released Date/Time: Sep 24, 2022 01:55 PM Reporting Lab: [facility] [address] Performing Lab: [facility] [address] [place] [facility] COMPREHE NSIVE METABOLI C PANEL+MG UREA NITROGEN [MASS/VOLU ME] IN SERUM OR PLASMA 16 mg/dL 8 - 26 10/08 Specimen Type: PLASMA No comment entered. Ordering Provider: ANKUSH BOWMAN Report Released Date/Time: Sep 24, 2022 01:55 PM Reporting Lab: [facility] [address] Performing Lab: [facility] [address] [place] [facility] COMPREHE NSIVE METABOLI C PANEL+MG GLUCOSE [MASS/VOLU ME] IN SERUM OR PLASMA 94 mg/dL 70 - 100 10/08 Specimen Type: PLASMA No comment entered. Ordering Provider: ANKUSH BOWMAN Report Released Date/Time: Sep 24, 2022 01:55 PM Reporting Lab: [facility] [address] Performing Lab: [facility] [address] [place] [facility] COMPREHE NSIVE METABOLI C PANEL+MG SODIUM [MOLES/VOL UME] IN SERUM OR PLASMA 138 mmol/L 136 - 145 10/08 Specimen Type: PLASMA No comment entered. Ordering Provider: ANKUSH BOWMAN Report Released Date/Time: Sep 24, 2022 01:55 PM Reporting Lab: [facility] [address] Performing Lab: [facility] [address] [place] [facility] COMPREHE NSIVE METABOLI C PANEL+MG POTASSIUM [MOLES/VOL UME] IN SERUM OR PLASMA 3.9 mmol/L 3.5 - 5.1 10/08 Specimen Type: PLASMA No comment entered. Ordering Provider: ANKUSH BOWMAN Report Released Date/Time: Sep 24, 2022 01:55 PM Reporting Lab: [facility] [address] Performing Lab: [facility] [address] [place] [facility] COMPREHE NSIVE METABOLI C PANEL+MG CHLORIDE [MOLES/VOL UME] IN SERUM OR PLASMA 101 mmol/L 98 - 107 10/08 Specimen Type: PLASMA No comment entered. Ordering Provider: ANKUSH BOWMAN Report Released Date/Time: Sep 24, 2022 01:55 PM Reporting Lab: [facility] [address] Performing Lab: [facility] [address] [place] [facility] COMPREHE NSIVE METABOLI C PANEL+MG CARBON DIOXIDE, TOTAL [MOLES/VOL UME] IN SERUM OR PLASMA 28 mmol/L 22 - 29 10/08 Specimen Type: PLASMA No comment entered. Ordering Provider: ANKUSH BOWMAN Report Released Date/Time: Sep 24, 2022 01:55 PM Reporting Lab: [facility] [address] Performing Lab: [facility] [address] [place] [facility] COMPREHE NSIVE METABOLI C PANEL+MG CALCIUM [MASS/VOLU ME] IN SERUM OR PLASMA 9.7 mg/dL 8.4 - 10.2 10/08 Specimen Type: PLASMA No comment entered. Ordering Provider: ANKUSH BOWMAN Report Released Date/Time: Sep 24, 2022 01:55 PM Reporting Lab: [facility] [address] Performing Lab: [facility] [address] [place] [facility] COMPREHE NSIVE METABOLI C PANEL+MG PROTEIN [MASS/VOLU ME] IN SERUM OR PLASMA 7.6 g/dL 6.0 - 8.3 10/08 Specimen Type: PLASMA No comment entered. Ordering Provider: ANKUSH BOWMAN Report Released Date/Time: Sep 24, 2022 01:55 PM Reporting Lab: [facility] [address] Performing Lab: [facility] [address] [place] [facility] COMPREHE NSIVE METABOLI C PANEL+MG ALBUMIN [MASS/VOLU ME] IN SERUM OR PLASMA 4.2 g/dL 3.5 - 5.2 10/08 Specimen Type: PLASMA No comment entered. Ordering Provider: ANKUSH BOWMAN Report Released Date/Time: Sep 24, 2022 01:55 PM Reporting Lab: [facility] [address] Performing Lab: [facility] [address] [place] [facility] COMPREHE NSIVE METABOLI C PANEL+MG BILIRUBIN. TOTAL [MASS/VOLU ME] IN SERUM OR PLASMA 0.6 mg/dL 0.2 - 1.2 10/08 Specimen Type: PLASMA No comment entered. Ordering Provider: ANKUSH BOWMAN Report Released Date/Time: Sep 24, 2022 01:55 PM Reporting Lab: [facility] [address] Performing Lab: [facility] [address] [place] [facility] COMPREHE NSIVE METABOLI C PANEL+MG MAGNESIUM [MASS/VOLU ME] IN SERUM OR PLASMA 2.1 mg/dL 1.6 - 2.6 10/08 Specimen Type: PLASMA No comment entered. Ordering Provider: ANKUSH BOWMAN Report Released Date/Time: Sep 24, 2022 01:55 PM Reporting Lab: [facility] [address] Performing Lab: [facility] [address] [place] [facility] COMPREHE NSIVE METABOLI C PANEL+MG ANION GAP IN SERUM OR PLASMA 9 mmol/L 5 - 15 10/08 Specimen Type: PLASMA No comment entered. Ordering Provider: ANKUSH BOWMAN Report Released Date/Time: Sep 24, 2022 01:55 PM Reporting Lab: [facility] [address] Performing Lab: [facility] [address] [place] [facility] COMPREHE NSIVE METABOLI C PANEL+MG ALKALINE PHOSPHATAS E [ENZYMATIC ACTIVITY/V OLUME] IN SERUM OR PLASMA 96 U/L 40 - 150 10/08 Specimen Type: PLASMA No comment entered. Ordering Provider: ANKUSH BOWMAN Report Released Date/Time: Sep 24, 2022 01:55 PM Reporting Lab: [facility] [address] Performing Lab: [facility] [address] [place] [facility] COMPREHE NSIVE METABOLI C PANEL+MG ALANINE AMINOTRANS FERASE [ENZYMATIC ACTIVITY/V OLUME] IN SERUM OR PLASMA 29 U/L <55 - 55 10/08 Specimen Type: PLASMA No comment entered. Ordering Provider: ANKUSH BOWMAN Report Released Date/Time: Sep 24, 2022 01:55 PM Reporting Lab: [facility] [address] Performing Lab: [facility] [address] [place] [facility] COMPREHE NSIVE METABOLI C PANEL+MG ASPARTATE AMINOTRANS FERASE [ENZYMATIC ACTIVITY/V OLUME] IN SERUM OR PLASMA 22 U/L <34 - 34 10/08 Specimen Type: PLASMA No comment entered. Ordering Provider: ANKUSH BOWMAN Report Released Date/Time: Sep 24, 2022 01:55 PM Reporting Lab: [facility] [address] Performing Lab: [facility] [address] [place] [facility] COMPREHE NSIVE METABOLI C PANEL+MG GLOMERULAR FILTRATION RATE/1.73 SQ M.PREDICTE D [VOLUME RATE/AREA] IN SERUM, PLASMA OR BLOOD BY CREATININE -BASED FORMULA (CKD-EPI) >90 60 10/08 Specimen Type: PLASMA No comment entered. Ordering Provider: ANKUSH BOWMAN Report Released Date/Time: Sep 24, 2022 01:55 PM Reporting Lab: [facility] [address] Performing Lab: [facility] [address] [place] [facility] CYSTATIN C WITH EGFR CYSTATIN C [MASS/VOLU ME] IN SERUM OR PLASMA 1.38 mg/L 0.51 - 1.05 10/08 H Specimen Type: PLASMA No comment entered. Ordering Provider: ANKUSH BOWMAN Report Released Date/Time: Sep 24, 2022 01:55 PM Reporting Lab: [facility] [address] Performing Lab: [facility] [address] [place] [facility] CYSTATIN C WITH EGFR CYSTATIN C AND GLOMERULAR FILTRATION RATE BY CYSTATIN-B ASED FORMULA PANEL - SERUM OR PLASMA 48 60 10/08 L Specimen Type: PLASMA No comment entered. Ordering Provider: ANKUSH BOWMAN Report Released Date/Time: Sep 24, 2022 01:55 PM Reporting Lab: [facility] [address] Performing Lab: [facility] [address] [place] [facility] PRE-ALBU MIN PREALBUMIN [MASS/VOLU ME] IN SERUM OR PLASMA 28.4 mg/dL 14.0 - 45.0 10/08 Specimen Type: SERUM No comment entered. Ordering Provider: ANKUSH BOWMAN Report Released Date/Time: Sep 24, 2022 01:55 PM Reporting Lab: [facility] [address] Performing Lab: [facility] [address] [place] [facility] VIT D 25-OH,TO ZAMZAM 25-HYDROXY VITAMIN D3 [MASS/VOLU ME] IN SERUM OR PLASMA 54 ng/mL 12 - 50 10/08 H Specimen Type: SERUM No comment entered. Ordering Provider: AKNUSH BOWMAN Report Released Date/Time: Sep 24, 2022 01:55 PM Reporting Lab: [facility] [address] Performing Lab: [facility] [address] [facility] Encounters Combined list of: 1) Encounters from Department of Veterans Affairs facilities going back up to thelast 18 months. 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 Location Location Details Encounter Type Encounter Number Reason For Visit Attending Provider ADM Date DC Date Status Disposition Source [facility] DIABETIC MANAGEMENT PROGRAM, [id number] Diagnos is: ICD-10- CM G82.20 Paraple mary kay, unspeci fied
TIGIST BASSETT 01/30 [facility] Outpatient Encounter [id number] 02/05 [facility] MTMS BY PHARM ADDL 15 MIN [id number] Diagnos is: ICD-10- CM G82.20 Paraple mary kay, unspeci fied
MANPREET BARRETT 02/05 [facility] OT EVAL LOW COMPLEX 30 MIN [id number] Diagnos is: ICD-10- CM Z73.6 Limitat ion of activit ies due to disabil ity<br/ > Bryn PARDO 02/05 [facility] OFF/OP EST MARCH X REQ PHY/QHP [id number] Diagnos is: ICD-10- CM G82.20 Paraple mary kay, unspeci fied
ASHAARIAMARISOLJagdish Miranda 02/05 [facility] PSYCH DIAGNOSTIC EVALUATION [id number] Diagnos is: ICD-10- CM F32.A Depress ion, unspeci fied
BINU GAMEZ 02/05 [facility] OFFICE O/P EST MOD 30-39 MIN [id number] Diagnos is: ICD-10- CM G82.20 Paraple mary kay, unspeci fied
ME LOGAN BOWMAN 02/05 [facility] PSYCH DIAGNOSTIC EVALUATION [id number] Diagnos is: ICD-10- CM G82.20 Paraple mary kay, unspeci fied
CHIRCOP,AN DESIRE J 02/05 [facility] MEDICAL NUTRITION INDIV IN [phone] Diagnos is: ICD-10- CM Z71.3 Dietary elder counselor ing and surveil payal<b r/> Katia ARCHER 02/05 [facility] ENTEROSTOM AL THERAPY BY A RE [phone] Diagnos is: ICD-10- CM Z43.3 Encount er for attenti on to colosto my
VIOLA YOON 02/08 [facility] OFFICE O/P EST HI 40-54 MIN [phone] Diagnos is: ICD-10- CM G82.20 Paraple mary kay, unspeci fied
ME LOGAN BOWMAN 02/13 [facility] WHEELCHAIR MNGMENT TRAINING [phone] Diagnos is: ICD-10- CM Z73.6 Limitat ion of activit ies due to disabil ity<br/ > BOUSLOG,RY AN P 02/13 [facility] [place] [facility] Outpatient Encounter [phone] 02/19 [place] [facility] [place] [facility] HC PRO PHONE CALL 11-20 MIN [id number] Diagnos is: ICD-10- CM Z73.6 Limitat ion of activit ies due to disabil ity<br/ > BOUSLOG,RY AN P 04/23 [place] [place] [facility] Outpatient Encounter [id number] 04/24 [place] [facility] [place] [facility] Outpatient Encounter [id number] 05/24 [facility] [place] [facility] OFF/OP EST MARCH X REQ PHY/QHP [id number] Diagnos is: ICD-10- CM G82.20 Paraple mary kay, unspeci fied
VIOLA YOON NDJagdish 05/28 [facility] [place] [facility] WHEELCHAIR MNGMENT TRAINING [id number] Diagnos is: ICD-10- CM Z73.6 Limitat ion of activit ies due to disabil ity<br/ > BOUSLOG,RY AN P 06/10 [place] [facility] [place] [facility] Outpatient Encounter [id number] 10/28 [place] [facility] [place] [facility] Outpatient Encounter [id number] 11/20 [place] [facility] [place] [facility] Outpatient Encounter [id number] 05/12 [place] [facility] [place] [facility] Outpatient Encounter [id number] 07/23 [place] [facility] Social History Combined list of available smoking, tobacco, and other social history from 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 Social History Type Response Date Comment Sourc e Tobacco smoking status [facility] VA-TOBACCO NEVER USED 05/28/20 22 SADAF TREVINO CBTATI This section is an empty social history section. [facility] Plan of Care List of future care activities from [facility] facilities. Additional future care activities may be listed in the Assessment and Plan section. Date/Time Care Activity Care Activity Detail Facili ty 07/30/2024 AMBULATORY - REHAB MEDICINE AMBULATORY - REHAB MEDICINE [facility] Advance Directives List of completed, amended, or rescinded Advance Directives on record at [facility] facilities. An actual copy of the Directive is not included. Date Advance Directive Provider Source 02/05/2023 ADVANCE DIRECTIVE DISCUSSION GUSTAVO ABAD [facility]
--- OUTSIDE RECORDS SUMMARY | 2024-07-27 12:45 | XMS_ITS | Encounter Summary ---
Author Organization [facility] Address [address] [address] Care Team Providers Care Retail Merchandising Coordinator Name Role Phone Franklin Squires MD Primary Care Provider Encounter Details Date Type Department Care Team (Latest Contact Info) Description 12/11/2017 Correspondence Physiatry/Physical Medicine at [facility] [address] [facility] [place] [address] May Randle MD [address] [place] [address] [employer] Social History Tobacco Use [...] filedocumented in this encounter Care Teams Retail Merchandising Coordinator Relationship Specialty Start Date End Date Franklin Squires MD [address] [place] [address] [place] [address] PCP - General Family Practice 03/08/16 documented as of this encounter
--- OUTSIDE RECORDS SUMMARY | 2024-07-27 12:45 | XMS_ITS | Encounter Summary ---
Author Organization [facility] Address [address] [address] Care Team Providers Care Family Service Caseworker Name Role Phone Franklin Squires MD Primary Care Provider [phone] Encounter Details Date Type Department Care Team (Late st Contact Info) Description 01/06/2016 Correspondence [facility] Radiology [address] [place] [address] Radiology, Provider MRI SAFETY SHEET AND COMPATIBILITY [...] filedocumented in this encounter Care Teams Family Service Caseworker Relationship Specialty Start Date End Date Franklin Squires MD [address] [place], [place] [address] [address] PCP - General Family Practice 03/08/16 documented as of this encounter
--- OUTSIDE RECORDS SUMMARY | 2024-07-27 12:45 | XMS_ITS ---
Author Organization [facility] Address [address], [place] [address] Care Team Providers Care Gas Pumping Station Supervisor Name Role Phone Franklin Squires MD [...] treatments are documented for this patient in [facility]. Treatments may have been administered in another system. Resolved Problems Problem Noted Date Diagnosed Date Resolved Date Gait abnormality 01/17/2012 02/09/2015 Back pain 01/17/2012 02/09/2015 Paraplegia 04/04/2011 02/09/2015 Osteoporosis 03/06/2011 02/09/2015 Urinary tract infection 12/24/200603/11
--- OUTSIDE RECORDS SUMMARY | 2024-07-27 12:45 | XMS_ITS | Encounter Summary ---
Author Organization [facility] Address [address], [place] [address] Care Team Providers Care Computer Operations Manager Name Role Phone Franklin Squires [...] filedocumented in this encounter Care Teams Computer Operations Manager Relationship Specialty Start Date End Date Franklin Squires MD [address] [facility] [address] PCP - General Family Practice 03/08/16 documented as of this encounter
--- OUTSIDE RECORDS SUMMARY | 2024-07-27 12:45 | XMS_ITS | Encounter Summary ---
Author Organization [facility] Address [address], [place] [address] Care Team Providers Care Sales Host Name Role Phone Franklin Squires MD Primary Care Provider Encounter Details Date Type Department Care Team (Late st Contact Info) Description 09/07/2014 Correspondence [facility] Radiology [address] [place] [address] Radiology, Provider MRI SAFETY SHEET AND COMPATIBILITY [...] filedocumented in this encounter Care Teams Sales Host Relationship Specialty Start Date End Date Franklin Squires MD [address] [place] [address] [address] PCP - General Family Practice 03/08/16 documented as of this encounter
--- OUTSIDE RECORDS SUMMARY | 2024-07-27 12:45 | XMS_ITS | Encounter Summary ---
Author Organization [facility] Address [address], [place] [address] Care Team Providers Care Wine Cellar Stock Clerk Name Role Phone Frankiln Squires MD Primary Care Provider Encounter Details Date Type Department Care Team (Late st Contact Info) Description 12/16/2014 Correspondence External to External, [place] [address] MEDICARE PLAN OF CARE RECERT Social History [...] on filedocumented in this encounter Care Teams Wine Cellar Stock Clerk Relationship Specialty Start Date End Date Franklin Squires MD [address] [place] [address] [facility] [place] [address] PCP - General Family Practice 03/08/16 documented as of this encounter
--- OUTSIDE RECORDS SUMMARY | 2024-07-27 12:45 | XMS_ITS | Encounter Summary ---
Author Organization [facility] Address [address] [address] Care Team Providers Care Inspectors And Regulatory Officers Name Role Phone Franklin Squires MD Primary Care Provider [phone] Encounter Details Date Type Department Care Team (Late st Contact Info) Description 06/11/2014 Correspondence [facility] [address] Physical Medicine [address] [place] [address] May Randle MD [address] [place] [address] [facility] Social History Tobacco Use Types Packs/Day [...] on filedocumented in this encounter Care Teams Inspectors And Regulatory Officers Relationship Specialty Start Date End Date Franklin Squires MD [address] [facility] [place] [address] PCP - General Family Practice 03/08/16 documented as of this encounter
--- OUTSIDE RECORDS SUMMARY | 2024-07-27 12:45 | XMS_ITS | Encounter Summary ---
Author Organization [facility] Address [address] [address] Care Team Providers Care Bar Catcher Name Role Phone Franklin Squires MD Primary Care Provider Encounter Details Date Type Department Care Team (Late st Contact Info) Description 12/14/2014 Correspondence [facility] 401 Physical Medicine [address] [facility] [place] [address] May Randle MD [address] [place] [address] DETAILED PRODUCT DESCRIPTION Social History Tobacco Use [...] filedocumented in this encounter Care Teams Bar Catcher Relationship Specialty Start Date End Date Franklin Squires MD [address] [facility] [place] [address] PCP - General Family Practice 03/08/16 documented as of this encounter
--- OUTSIDE RECORDS SUMMARY | 2024-07-27 12:45 | XMS_ITS | Clinical Summary ---
Author Organization [employer] [facility] Address [place], [place] [address] Care Team Providers Care Director Product Name Role Phone Zelalem Cohen MD Unavailable [phone] May Randle) Unavailable Franklin Squires MD Primary Care Provider Fred Craft Unavailable [phone] Diane Charles MD Unavailable [phone] Julia Ware RN Unavailable [phone] Allergies Active Allergy Reactions Criticality Noted Date [...] bedIndications:Non-heal ing surgical wound, subsequent encounter Drive [employer] 8 inch low loss mattress and 1/2 rails. Semi-electric bed. Length of need 6 weeks. Bed nuclear reactor technician:no 1 unit 018 Active acetaminophen (TYLENOL EXTRA STRGTH) 500 mg tabletIndications:fever ,pain Take 1,000 mg by mouth three times daily. Max acetaminophen dose: 4000mg in 24 hrs. Active sodium chloride (AYR SALINE NASL) Inhale 2-3 Sprays in the nostril(s) once daily if needed. 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 Sen[employer]ura Lavina Click Ostomy Barrier with belt tabs 60mm, Cut-to-Fit 01/16 - 2 11/18. Item #[id number]. 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 Bright PM&R: Dr. 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 02/19/2007 09/27/2008 Depressive disorder, not elsewhere classified 02/14/20 07 01/15/2018 Abnormality of gait 12/24/2006 09/27/20 08 Urinary tract infection, site not specified 12/24/2006 01/15/2018 BENIGN ESSENTIAL HYPERTENSION 12/24/2006 04/17/2016 Overview (12/24/2006): borderline Necrotizing fasciitis 2018 Type 2 diabetes mellitus Encounters Date Type Department Care Team Description 07/24/[address] [place] [address] Franklin Squires MD Anticoagulation (new med) 07/23/2024 8:46 AM CDT - 07/23/2024 2:33 PM CDT Hospital Encounter [facility] [address] [place] [address] Yudith Mcgraw, CLEMENT Wound infection (Primary Dx) Discharge Disposition: Home Health 07/23/2024 Orders Only [facility] [address] [place] [address] Yudith Mcgraw, CERAMIC PAINTER 1 scan: INFUSION CEFEPIME 2 MG 07/23/2024 Travel 07/22/[address] [facility] [address] [place] [address] Yen Hernandez, RN Appointment 07/22/2024 Telephone [facility] [address] [place] [address] Jennyfer Penny RN 07/15/[address] [address] Franklin Squires MD Anticoagulation (Order renewal) 07/15/2024 Anticoagulation (warfarin) [address] [address] , [facility] Anticoagulation (Acelis ) 07/14/[address] [address] Franklin Squires MD Form (Case Communication- Major drug interactions-( Warfarin) - Home Health Certification and Plan of Care - 07/08/2024-09/05/2024) 07/14/2024 Refill [facility] [address] [place] [address] Franklin Squires MD Refill Request (Bupropion) 07/09/2024 Orders Only [facility] Scanner 1 scan: (1-Ord) [facility], CT PELVIS W CON, 07/09/2024 07/08/2024 1:30 PM CDT Nurse/Clinic Staff Only [address] [place] [address] Nurse/Clinic Staff Only (Cath Change ) 07/08/2024 Travel 07/07/[address] [place] [address] Franklin Squires MD Refill Request (Donepezil) 07/02/2024 1:30 PM CDT Office Visit [address] [place] [address] Franklin Squires MD Medication Management 07/02/2024 Travel 07/01/2024 Anticoagulation (warfarin) [address] [place] [address] 1, [facility] Anticoagulation (Acelis) 06/17/2024 Anticoagulation (warfarin) [address] [place] [address] 1, [facility] Anticoagulation (acelis) 06/11/[address] [place] [address] Franklin Squires MD Refill Request (Warfarin) 06/03/2024 Anticoagulation (warfarin) [address] [place] [address] 1, [facility] Anticoagulation (Acelis) 06/02/[address] [place] [address] Franklin Squires MD Refill Request (Oxycodone) 05/20/2024 Anticoagulation (warfarin) [address] [place] [address] 1, [facility] Anticoagulation (Acelis) 05/14/[address] [place] [phone] Franklin Squires MD Refill Request (Baclofen) 05/14/[address] [phone] Franklin Squires MD Refill Request (Warfarin) 05/13/2024 Anticoagulation (warfarin) [address] [phone] 1, [facility] Anticoagulation (Acelis) 05/11/[address] [phone] Franklin Squires MD Form (Physician Orders and Home Health Certification and Plan of Care.) 05/06/2024 Anticoagulation (warfarin) [address] [place] [phone] 1, [facility] Anticoagulation (Acelis) 05/05/[address] [phone] Franklin Squires MD Form (60 Day Summary Report) 05/05/[address] [phone] Franklin Squires MD Refill Request (Warfarin) 05/04/[address] [phone] Franklin Squires MD Form 05/04/[address] [phone] Franklin Squires MD Refill Request (Oxycodone) 05/01/2024 Anticoagulation (warfarin) [address] [address] 1, [facility] Anticoagulation (Acelis) 04/29/2024 Refill [facility] [address] [place] [address] Franklin Squires MD Refill Request (Duloxetine, Donepezil) from Last 3 Months Immunizations Name Administration [...] Sign Reading Time Taken Comments Blood Pressure 117/66 07/23/2024 11:00 AM CDT Pulse 100 07/23/2024 11:00 AM CDT Temperature 36.3 ??C (97.4 ??F) 07/23/2024 11:00 AM C DT Respiratory Rate 18 07/23/2024 11:00 AM CDT Oxygen Saturation 99% 07/23/2024 11:00 AM CDT Inhaled Oxygen Concentration - - Weight 95.7 kg (211 lb) 04/24/2024 1:48 PM CDT Height 175.3 cm (5' 9) 04/24/2024 1:48 PM CDT Body Mass Index 31.16 04/24/2024 1:48 PM CDT Plan of Treatment Upcoming Encounters Date Type Department Care Team (Late st Contact Info) Description 07/29/2024 1:30 PM CDT Nurse/Clinic Staff Only [address] [phone] Health Maintenance Due Date Last [...] Procedure Name Priority Date/Time Associated Diagnosis Comments BASIC METABOLIC PANEL Today 07/23/2024 11:01 AM CDT CBC WITH AUTO DIFFERENTIAL JORGE LUIS 07/23/2024 10:59 AM CDT CBC WITH AUTO DIFFERENTIAL JORGE LUIS 07/23/2024 10:59 AM CDT EXTRA TUBE BLUE Today 07/23/2024 10:59 AM CDT EXTRA TUBE LAVENDER Today 07/23/2024 10:59 AM CDT XR CHEST 1 VIEW PORTABLE JORGE LUIS 07/23/2024 10:04 AM CDT SCAN-OPERATIVE/PROCE DURE REPORT 07/23/2024 12:00 AM CDT HOME MONITOR AC Routine 07/15/2024 12:00 AM [...] MONITOR AC Routine 05/01/2024 12:00 AM CDT from Last 3 Months Results * (ABNORMAL) BASIC METABOLIC PANEL (07/23/2024 11:01 AM CDT) Only the most recent of2 resultswithin the time period is included. SODIUM 139 136 - 145 mmol/L 07/23/2024 11:26 AM CDT [facility] POTASSIUM 4.0 3.5 - 5.1 mmol/L 07/23/2024 11:26 AM CDT [facility] CHLORIDE 102 98 - 107 mmol/L 07/23/2024 11:26 AM CDT [facility] CO2,TOTAL 30(H) 22 - 29 mmol/L 07/23/2024 11:[address] [facility] ANION GAP 7 5 - 18 07/23/2024 11:[address] [facility] GLUCOSE 153(H) 70 - 99 mg/dL 07/23/2024 11:[address] [facility] CALCIUM 9.3 8.8 - 10.2 mg/dL 07/23/2024 11:[address] [facility] BUN 17 8 - 23 mg/dL 07/23/2024 11:[address] [facility] CREATININE 0.61(L) 0.70 - 1.20 mg/dL 07/23/2024 11:[address] [facility] BUN/CREAT RATIO 28(H) 10 - 20 11:[address] [facility] eGFR >90 >90 mL/min/1.7 3m2 07/23/2024 11:[address] [facility] Comment:As of 2022, eG FR is calculated by the CKD-EPI creatinine equation without race adjustment. ??eGFR can be influenced by muscle mass, exercise, and diet. ??The reported eGFR is an estimation only and is only applicable if the renal function is stable. Blood BLOOD SPECIMEN / Unknown Line/Port / Unknown 07/23/2024 11:01 AM CDT 07/23/2024 11:04 AM T Toni Cooley RN CHEMISTRY [facility] [address] [place] [address] * (ABNORMAL) CBC WITH AUTO DIFFERENTIAL (07/23/2024 10:59 AM T) WHITE BLOOD COUNT 7.1 4.5 - 11.0 thou/cu mm 07/23/2024 2:34 PM T [facility] RED BLOOD COUNT 4.34 4.30 - 5.90 mil/cu mm 07/23/2024 2:[address] [facility] HEMOGLOBIN 13.1(L) 13.5 - 17.5 g/dL 07/23/2024 2:[address] [facility] HEMATOCRIT 39.9 37.0 - 53.0 % 07/23/2024 2:[address] [facility] MCV 92 80 - 100 fL 07/23/2024 2:[address] [facility] MCH 30.2 26.0 - 34.0 pg 07/23/2024 2:[address] [facility] MCHC 32.8 32.0 - 36.0 g/dL 07/23/2024 2:[address] [facility] RDW 16.9(H) 11.5 - 15.5 % 07/23/2024 2:[address] [facility] PLATELET COUNT 142 140 - 440 thou/cu mm 07/23/2024 2:[address] [facility] MPV 11.2(H) 6.5 - 11.0 fL 07/23/2024 2:[address] [facility] % NEUT 59.9 % 07/23/2024 2:[address] [facility] % LYMPH 28.8 % 07/23/2024 2:[address] [facility] % MONO 9.5 % 07/23/2024 2:[address] [facility] % EOS 1.7 % 07/23/2024 2:[address] [facility] % BASO 0.1 % 07/23/2024 2:[address] [facility] ABSOLUTE NEUTROPHILS 4.2 1.7 - 7.0 thou/cu mm 07/23/2024 2:[address] [facility] ABSOLUTE LYMPHOCYTES 2.0 0.9 - 2.9 thou/cu mm 07/23/2024 2:[address] [facility] ABSOLUTE MONOCYTES 0.7 <0.9 thou/cu mm 07/23/2024 2:[address] [facility] ABSOLUTE EOSINOPHILS 0.1 <0.5 thou/cu mm 07/23/2024 2:[address] [facility] ABSOLUTE BASOPHILS 0.0 <0.3 thou/cu mm 07/23/2024 2:34 PM CDT [facility] Blood BLOOD SPECIMEN / Unknown Extra Tube / Unknown 07/23/2024 10:59 AM CDT 07/23/2024 11:06 AM CDT Bal Gillette DO HEMATOLOGY Performing Organization Address City/[facility]/ZIP Co de Phone Number [facility] [address] [place] [address] * EXTRA TUBE LAVENDER (07/23/2024 10:59 AM CDT) Blood BLOOD SPECIMEN / Unknown Extra Tube / Unknown 07/23/2024 10:59 AM CDT 07/23/2024 11:06 AM CDT Doctor Unknown LABORATORY Performing Organization Address [facility] Co de Phone Number [facility] [address] [place] [address] * EXTRA TUBE BLUE (07/23/2024 10:59 AM CDT) Blood BLOOD SPECIMEN / Unknown Extra Tube / Unknown 07/23/2024 10:59 AM CDT 07/23/2024 11:06 AM CDT Doctor Unknown LABORATORY Performing Organization Address City/[facility] Co de Phone Number [facility] [address] [place] [address] * XR CHEST 1 VIEW PORTABLE (07/23/2024 10:04 AM CDT) Anatomical Region Laterality Modality HEART, THORAX, CHEST Digital Rad iography 07/23/2024 10:1 8 AM CDT Impressions 07/23/2024 10:18 AM CDT Right-sided PICC line in good position. No complication of line placement. Dictated by Ruben Abbott MD @ 07/23/2024 10:18:57 AM (Electronically Signed) Narrative 07/23/2024 10:18 AM CDT For Patients: ??As a result of the 21st Century Cures Act, medical imaging exams and procedure reports are released immediately into your electronic medical record. ??You may view this report before your referring provider. ??If you have questions, please contact your health care provider. INDICATION: Line placement. TECHNIQUE: Chest 1 view. COMPARISON: 02/14/2024 FINDINGS: Cardiovascular and mediastinum: A right-sided PICC line lies with its tip in good position at the SVC/RA junction. Heart size and vasculature are normal in caliber and appearance. Mediastinum is within normal limits. Lungs and pleural spaces: Lungs are clear. No sign of infiltrate or mass. No sign of pleural effusion. No pneumothorax. Bones and soft tissues: No significant findings. Procedure Note Nabil Abbott MD - 07/23/2024 For Patients: As a result of the Cures Act, medical imagingexams and procedure reports are released immediately into your electronicmedical record. You may view this report before your referring provider.If you have questions, please contact your health care provider. INDICATION: Line placement. TECHNIQUE: Chest 1 view. COMPARISON: 02/14/2024 FINDINGS: Cardiovascular and mediastinum: A right-sided PICC line lies with its tipin good position at the SVC/RA junction. Heart size and vasculature arenormal in caliber and appearance. Mediastinum is within normal limits. Lungs and pleural spaces: Lungs are clear. No sign of infiltrate or mass.No sign of pleural effusion. No pneumothorax. Bones and soft tissues: No significant findings. IMPRESSION: Right-sided PICC line in good position. No complication of lineplacement. Dictated by Ruben Abbott MD @ 07/23/2024 10:18:57 AM (Electronically Signed) Toni Cooley RN GENERAL IMAGING * SCAN-OPERATIVE/PROCEDURE REPORT (07/23/2024 12:00 AM CDT) Narrative 07/23/2024 12:00 AM CDT Ordered by an unspecified provider. Other Clinical Staff OTHER * (ABNORMAL) HOME MONITOR AC (07/15/2024 12:00 AM CDT) Only the most recent of8 resultswithin the time period is included. PATIENT REPORTED HOME INR 3.1(H) 2.00 - 3.00 [facility] MONITORING 07/15/2024 Franklin Squires MD OTHER [facility] [address] [place] [address] * SCAN-CT INTERPRETATION (07/09/2024 12:00 AM CDT) Anatomical Region Laterality Modality Other Scanner OTHER * LIPID PANEL W REFLEX MEASURED LDL (07/02/2024 2:14 PM CDT) CHOLESTEROL,TOTAL 122 100 - 199 mg/dL 07/02/2024 3:[address] [facility] Comment: Cholesterol, Total Reference Ranges Desirable <200 mg/dL Borderline 200-239 mg/dL High >=240 mg/dL TRIGLYCERIDES 58 <150 mg/dL 07/02/2024 3:[address] [facility] HDL CHOLESTEROL 56 >40 mg/dL 3:[address] [facility] NON-HDL CHOLESTEROL 66 <145 mg/dl 07/02/2024 3:[address] [facility] CHOL/HDL RATIO 2.18 <4.50 07/02/2024 3:[address] [facility] LDL CHOLESTEROL 54 <=130 mg/dL 07/02/2024 3:[address] [facility] VLDL CHOLESTEROL 12 <=30 mg/dL 07/02/2024 3:[address] [facility] PROVIDER ORDERED STATUS RANDOM 07/02/2024 3:[address] [facility] Blood BLOOD SPECIMEN / Unknown Venipuncture / Unknown 07/02/2024 2:14 PM CDT 07/02/2024 2:14 PM CDT Franklin Squires MD CHEMISTRY [facility] [address] [place] [address] * (ABNORMAL) CBC W PLT NO DIFF (07/02/2024 2:14 PM CDT) WHITE BLOOD COUNT 8.5 4.5 - 11.0 thou/cu mm 07/02/2024 2:58 PM CDT [facility] RED BLOOD COUNT 4.75 4.30 - 5.90 mil/cu mm 07/02/2024 2:58 PM CDT [facility] HEMOGLOBIN 14.1 13.5 - 17.5 g/dL 07/02/2024 2:58 PM CDT [facility] HEMATOCRIT 42.2 37.0 - 53.0 % 07/02/2024 2:58 PM CDT [facility] MCV 89 80 - 100 fL 07/02/2024 2:58 PM CDT [facility] MCH 29.7 26.0 - 34.0 pg 07/02/2024 2:58 PM CDT [facility] MCHC 33.4 32.0 - 36.0 g/dL 07/02/2024 2:58 PM CDT [facility] RDW 18.3(H) 11.5 - 15.5 % 07/02/2024 2:58 PM CDT [facility] PLATELET COUNT 159 140 - 440 thou/cu mm 07/02/2024 2:58 PM CDT [facility] MPV 10.7 6.5 - 11.0 fL 07/02/2024 2:58 PM T [facility] Blood BLOOD SPECIMEN / Unknown Venipuncture / Unknown 07/02/2024 2:14 PM CDT 07/02/2024 2:14 PM CDT Franklin Squires MD HEMATOLOGY [facility] [address] [place] [address] * HEMOGLOBIN A1C MONITORING (POCT) (07/02/2024 2:14 PM CDT) Pathologist [facility] HEMOGLOBIN A1C MONITORING (POCT) 5.9 <=6.4 % 07/02/2024 2:49 PM CDT [facility] Blood BLOOD SPECIMEN / Unknown Venipuncture / Unknown 07/02/2024 2:14 PM CDT 07/02/2024 2:14 PM CDT Narrative [facility] - 07/02/2024 2:49 PM [...] Anemias, Splenectomy ? Franklin Squires MD CHEMISTRY [facility] [address] [place] [address] from Last 3 Months Additional Health Concerns Infection Onset Date Last Indicated MRSA Comment:Order contact precautions. 06/21/23 pt ineligible for d/c due to indwelling device Nares surveillance cultures needed to clear patient if <12 months since positive culture. If >12 months since positive culture, precautions can be discontinued if patient has no MRSA risk factors. 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 urine, +MRSA 04/04/2020 urine +MRSA 03/11/2018 R Buttock, +MRSA 05/10/2019 buttock +MRSA 01/05/2021 urine, +MRSA 03/26/2024 urethra exclusions for contact precaution discontinuation (if > 12 months since positive culture): resides in acute/senior living care, receiving hemodialysis, has chronic open wounds/skin damage, has long-term percutaneous indwelling medical devices Exclusions for nares collection (if <12 months since positive culture) include all of the previous exclusions plus patients on antibiotics 7 days prior to collection 03/13/2018 03/20/2024 Advance Directives Documents on File Type Date Recorded Patient Porcelain Enamel Sprayer Expl anation Healthcare Directive 05/09/2023 023 Healthcare [...] Code Status Discussion: Reviewed Preferences Care Teams Director Product Relationship Specialty Start Date End Date Franklin Squires MD [address] [place] [address] PCP - General Family Practice 10/18/15 Zelalem Cohen MD Physical Therapist 03/13/12 May Randle Md, MD Physical Medicine and Rehabilitation 03/13/12 Luana, FAUSTINO Krueger [address] [place] [address] Retail Equipment Associate 05/03/17 Diane Charles MD [address] [place] [address] Surgery - Urology 01/17/23 Julia Ware, RN [address] [place] [address] Registered Nurse 07/17/23
--- OUTSIDE RECORDS SUMMARY | 2024-07-27 12:45 | XMS_ITS | Encounter Summary ---
Author Organization [facility] Address [address], [place] [address] Care Team Providers Care Data Capture Clerk Name Role Phone Franklin Squires MD Primary Care Provider Encounter Details Date Type Department Care Team (Latest Contact Info) Description 06/04/2014 [facility] [address] [facility] [place] [address] Zelalem Cohen, DO [address] [place] [address] MEDICAID PT INFORMATION EMPI RECOVERY Social History [...] filedocumented in this encounter Care Teams Data Capture Clerk Relationship Specialty Start Date End Date Franklin Squires MD [address] [facility] [place] [address] PCP - General Family Practice 03/08/16 documented as of this encounter
--- OUTSIDE RECORDS SUMMARY | 2024-07-27 12:45 | XMS_ITS | Encounter Summary ---
Author Organization [facility] Address [address], [place] [address] Care Team Providers Care Getter Operator Name Role Phone Franklin Squires MD Primary Care Provider [phone] Encounter Details Date Type Department Care Team (Late st Contact Info) Description 08/20/2014 Outside Hospital External to [facility] H[facility]P Social History Tobacco Use Types [...] on filedocumented in this encounter Care Teams Getter Operator Relationship Specialty Start Date End Date Franklin Squires MD [address] [facility] [address] PCP - General Family Practice 03/08/16 documented as of this encounter
--- OUTSIDE RECORDS SUMMARY | 2024-07-27 12:45 | XMS_ITS | Encounter Summary ---
Author Organization [facility] [address], [place] [address] Care Team Providers Care Heat Sealing Machine Operator Name Role Phone Franklin Squires MD Primary Care Provider Encounter Details Date Type Department Care Team (Late st Contact Info) Description 07/08/2015 Correspondence [facility] Physical Therapy [address] [place] [address] Trudi Raymundo, PT [address] [place] [address] ADDENDUM FOR LETTER OF MEDICAL NECESSITY Social [...] filedocumented in this encounter Care Teams Heat Sealing Machine Operator Relationship Specialty Start Date End Date Franklin Squires MD [address] [facility] [address] PCP - General Family Practice 03/08/16 documented as of this encounter
--- OUTSIDE RECORDS SUMMARY | 2024-07-27 12:45 | XMS_ITS | Encounter Summary ---
Author Organization [facility] Address [address], [place] [address] Care Team Providers Care Flight Service Agent Name Role Phone Franklin Squires MD Primary Care Provider Encounter Details Date Type Department Care Team (Late st Contact Info) Description 08/20/2014 Outside Hospital External to [facility] Social History Tobacco Use [...] filedocumented in this encounter Care Teams Flight Service Agent Relationship Specialty Start Date End Date Franklin Squires MD [address] [place], [place] [address] [address] PCP - General Family Practice 03/08/16 documented as of this encounter
--- OUTSIDE RECORDS SUMMARY | 2024-07-27 12:45 | XMS_ITS | Clinical Summary ---
Author Organization [facility] Address [address] [place] [address] Care Team Providers Care Salvage Engineering Technician Name Role Phone Franklin Squires MD Primary Care Provider [phone] Source Comments You are receiving this document [...] for each transition of care or referral. [facility] Allergies Active Allergy Reactions Criticality Noted Date [...] 0 06/10/2014 History of anticoagulant therapy 02/17/2014 assisted current use of anticoagulant therapy 0 02/17/2014 [...] Comments Blood Pressure 120/63 01/18/2022 12:59 PM CLINICAL PHARMACIST Pulse 87 01/18/2022 12:59 PM CLINICAL PHARMACIST Temperature 36.3 ??C (97.4 ??F) 01/18/2022 12:59 [...] 01/06/2017 01/06/2016, 06/07/2015, 10/21/2014, Additional history exists RSV (1 - 1-dose 75+ series) 2021 DTaP/Tdap/Td (2 - Tdap) 06/28/2021 06/28/2011 COVID-19 Vaccine ( season) 2024 08/06/2021, 01/25/2021, 01/02/2021 Influenza (#1) 2024 09/03/2021, 10/0 07/2020, 08/20/2019, Additional history exists Pneumococcal 65+ [...] this topic Medical Devices Implanted Type Area Stick Roller Device Identifier Shelf Expiration Date Model / Serial / Lot [id number] 4ml Tisseel Explanted:([place] ntity not on file) BIOLOGIC N/A: NECK Lynne Fenwall 09/10/2011 [id number] / [id number] / [id number] Description:posterior Cath Intrathecal Indura - [id number] Implanted:Qty: 1 on 05/09/2010 at [facility] DEVICE Right: LUMBAR SPINE [employer] 01/18/2012 8709 / N/A / [id number] 5 Cath Intrathecal Indura - [id number] Implanted:Qty: 1 on 05/29/2010 at [facility] DEVICE [employer] 8709 / / Scr Indira Conic 7.3x80 - [id number] Implanted:Qty: 1 on 03/13/2011 at [facility] DEVICE Right: FEMUR DISTAL [employer] 0 / NONE / NONE Plt Lcp Cndl Rt 4.5x170 6h - [id number] Implanted:Qty: 1 on 03/13/2011 at [facility] DEVICE Right: FEMUR DISTAL [employer] 222.656 / NONE / NONE Description:6 hole 170mm rig ht 4.5mm lcp condylar plate Scr Didier Ss Sftp 4.5x40 - [id number] Implanted:Qty: 1 on 03/13/2011 at [facility] DEVICE Left: FEMUR DISTAL [employer] 214.840 / NONE / NONE Scr Didier Ss Sftp 4.5x50 - [id number] Implanted:Qty: 1 on 03/13/2011 at [facility] DEVICE Left: FEMUR DISTAL [employer] 214.850 / NONE / NONE Scr Indira Lk 5.0x80 - [id number] Implanted:Qty: 2 on 03/13/2011 at [facility] DEVICE Left: FEMUR DISTAL [employer] 02.205.08 0 / NONE / NONE Scr Indira Lk 5.0x85 - [id number] Implanted:Qty: 2 on 03/13/2011 at [facility] DEVICE Left: FEMUR DISTAL [employer] 02.205.08 5 / NONE / NONE Scr Lk Sftp T25 5.0x50 - [id number] Implanted:Qty: 1 on 03/13/2011 at [facility] DEVICE Left: FEMUR DISTAL [employer] 212.219 / NONE / NONE Scr Lk Sftp T25 5.0x60 - [id number] Implanted:Qty: 1 on 03/13/2011 at [facility] DEVICE Left: FEMUR DISTAL [employer] 212.221 / NONE / NONE Scr Indira Conic 7.3x85 - [id number] Implanted:Qty: 1 on 03/13/2011 at [facility] DEVICE Left: FEMUR DISTAL [employer] 02.207.28 5 / NONE / NONE Plt Lcp Cndl Lt 4.5x170 6h - [id number] Implanted:Qty: 1 on 03/13/2011 at [facility] DEVICE Left: FEMUR DISTAL [employer] 222.657 / NONE / NONE Description:6 hole 170mmleng th left 4.5mm lcp condylar plate. Scr Didier Sftp 3.5x60 F-Thrd - [id number] Implanted:Qty: 1 on 03/13/2011 at [facility] DEVICE Left: TIBIA PROXIMAL [employer] 204.860 / NONE / NONE Scr Star Lk Sftp 3.5x32 - [id number] Implanted:Qty: 1 on 03/13/2011 at [facility] DEVICE Left: TIBIA PROXIMAL [employer] 212.112 / NONE / NONE Scr Star Lk Sftp 3.5x55 - [id number] Implanted:Qty: 2 on 03/13/2011 at [facility] DEVICE Left: TIBIA PROXIMAL [employer] 212.123 / NONE / NONE Scr Star Lk Sftp 3.5x60 - [id number] Implanted:Qty: 2 on 03/13/2011 at [facility] DEVICE Left: TIBIA PROXIMAL [employer] 212.124 / NONE / NONE Plt Lcp M/Prox Lt 3.5x94 4h - [id number] Implanted:Qty: 1 on 03/13/2011 at [facility] DEVICE Left: TIBIA PROXIMAL [employer] 239.955 / NONE / NONE Scr Didier Ss Sftp 4.5x36 - [id number] Implanted:Qty: 1 on 03/13/2011 at [facility] DEVICE Right: FEMUR DISTAL [employer] 214.836 / NONE / NONE Scr Didier Ss Sftp 4.5x44 - [id number] Implanted:Qty: 1 on 03/13/2011 at [facility] DEVICE Right: FEMUR DISTAL [employer] 214.844 / NONE / NONE Scr Indira Lk 5.0x75 - [id number] Implanted:Qty: 1 on 03/13/2011 at [facility] DEVICE Right: FEMUR DISTAL [employer] 02.205.07 5 / NONE / NONE Scr Indira Lk 5.0x85 - [id number] Implanted:Qty: 2 on 03/13/2011 at [facility] DEVICE Right: FEMUR DISTAL [employer] 02.205.08 5 / NONE / NONE Scr Lk Sftp T25 5.0x44 - [id number] Implanted:Qty: 1 on 03/13/2011 at [facility] DEVICE Right: FEMUR DISTAL [employer] 212.216 / NONE / NONE Scr Lk Sftp T25 5.0x65 - [id number] Implanted:Qty: 1 on 03/13/2011 at [facility] DEVICE Right: FEMUR DISTAL [employer] 212.222 / NONE / NONE Plt Lp T Ti Str 4h - [id number] Implanted:Qty: 3 on 07/28/2014 by Cooper Shelley MD at [facility] DEVICE Right: SKULL [employer] 421.504 / / Scr Matrix Sfdr 4mm - [id number] Implanted:Qty: 6 on 07/28/2014 by Cooper Shelley MD at [facility] DEVICE Right: SKULL [employer] 04.503.10 4.01 / / Lead Linear 3-4 8 Contact 50cm - [id number] Implanted:Qty: 1 on 03/08/2016 by Zelalem Cohen DO at [facility] DEVICE N/A: OTHER-SEE DESCRIPTION [facility] 09/10/2017 [id number] 2500 / / [id number] Description:LUMBAR Lead Linear 3-4 8 Contact 50cm - [id number] Implanted:Qty: 1 on 03/08/2016 by Zelalem Cohen DO at [facility] DEVICE N/A: OTHER-SEE DESCRIPTION [facility] 09/10/2017 [id number] 2500 / / [id number] Description:LUMBAR Lead Linear 3-4 8 Contact 50cm - [id number] Implanted:Qty: 1 on 03/08/2016 by Zelalem Cohen DO at [facility] DEVICE N/A: OTHER-SEE DESCRIPTION [facility] 09/10/2017 [id number] 2500 / / [id number] Description:LUMBAR Lead Linear 3-4 8 Contact 50cm - [id number] Implanted:Qty: 1 on 03/08/2016 by Zelalem Cohen DO at [facility] DEVICE N/A: OTHER-SEE DESCRIPTION [facility] 09/10/2017 [id number] 2500 / / [id number] Description:LUMBAR [place] Linear 3-4 8 Contact 50cm - [id number] Implanted:Qty: 1 on 05/24/2016 by Zelalem Cohen DO at [facility] DEVICE N/A: SPINE LUMBAR POSTERIOR [facility] 01/31/2018 [id number] 2500 / [id number] / Lead Linear 3-4 8 Contact 50cm - [id number] Implanted:Qty: 1 on 05/24/2016 by Zelalem Cohen DO at [facility] DEVICE N/A: SPINE LUMBAR POSTERIOR [facility] 04/26/2018 [id number] 2500 / [id number] / Lead Linear 3-4 8 Contact 50cm - [id number] Implanted:Qty: 1 on 05/24/2016 by Zelalem Cohen DO at [facility] DEVICE N/A: SPINE LUMBAR POSTERIOR [facility] 04/26/2018 [id number] 2500 / [id number] / Lead Linear 3-4 8 Contact 50cm - [id number] Implanted:Qty: 1 on 05/24/2016 by Zelalem Cohen DO at [facility] DEVICE N/A: SPINE LUMBAR POSTERIOR [facility] 04/26/2018 [id number] 2500 / [id number] / Generator Pulse Spectra - [id number] Implanted:Qty: 1 on 05/24/2016 by Zelalem Cohen DO at [facility] DEVICE N/A: SPINE LUMBAR POSTERIOR [facility] 05/08/2018 [id number] 20 / [id number] / [id number] [employer] - [id number] Implanted:Qty: 1 on 05/24/2016 by Zelalem Cohen DO at [facility] DEVICE N/A: SPINE LUMBAR POSTERIOR [facility] 05/02/2018 [id number] 60 / / [id number] [employer] - [id number] Implanted:Qty: 1 on 05/24/2016 by Zelalem Cohen DO at [facility] DEVICE N/A: SPINE LUMBAR POSTERIOR [facility] 02/28/2018 [id number] 60 / / [id number] Procedures Procedure Name Priority Date/Time Associated Diagnosis Comments CREATININE/GFR, WB POC Routine 01/06/2016 12:04 PM CLINICAL PHARMACIST Back pain, 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 HGB A1C Routine 07/29/2014 3:19 AM CDT from Last 3 Months or Most Recently Relevant to Health Maintenance Results * CREATININE/GFR, WB POC (01/06/2016 12:04 PM CLINICAL PHARMACIST) [facility] Creat Whole Blood 0.9 0.66 - 1.25 mg/dl [facility] GFR, Estimated >60 >60 ml/min/1.7 3m2 [facility] GFR, Est., If Black >60 >60 ml/min/1.7 3m2 [facility] 01/06/2016 12:0 4 PM CLINICAL PHARMACIST 01/06/2016 12:21 PM CLINICAL PHARMACIST Trae Blair MD LAB_1 [facility] [phone] * (ABNORMAL) HGB A1C (07/29/2014 3:19 AM CDT) [facility] Hgb A1c 6.4(H) 4.3 - 6.1 % [facility] Comment: The usual A1C goal for people with diabetes, age 18-75, is <8.0%. Physicians may recommend a higher or lower goal for specific individuals. 07/29/2014 3:19 AM CDT 07/29/2014 3:22 AM CDT Narrative [facility] - 07/29/2014 12:53 PM CDT Performed at [facility], [address] [place] [address] ??[address] [place] Wei PA-C LAB_[address] [address] from Last 3 Months or Most Recently [...] 5:44 PM 07/28/2014 6:50 PM Care Teams Salvage Engineering Technician Relationship Specialty Start Date End Date Franklin Squires MD 100 [facility] [place] [address] PCP - General Family Practice 03/08/16
--- OUTSIDE RECORDS SUMMARY | 2024-07-27 12:45 | XMS_ITS | Encounter Summary ---
Author Organization [facility] Address [address] [address] Care Team Providers Care Director Of Math Name Role Phone Franklin Squires MD Primary [...] in this encounter Care Teams Director Of Math Relationship Specialty Start Date End Date Franklin Squires MD 100 [facility] [address] PCP - General Family Practice 03/08/16 documented as of this encounter
--- OUTSIDE RECORDS SUMMARY | 2024-07-27 12:45 | XMS_ITS | Encounter Summary ---
Author Organization [facility] Address [address], [place] [address] Care Team Providers Care Ship Construction Teacher Name Role Phone Franklin Squires MD Primary Care Provider [phone] Encounter Details Date Type Department Care Team (Late st Contact Info) Description 02/09/2016 Correspondence [facility] 401 NeuroSurgery 401 [facility] [place], [place] [id number] Jodi Aguila PA-C [address] [place] [address] PATIENT LIFT PRESCRIPTION Social History Tobacco Use [...] on filedocumented in this encounter Care Teams Ship Construction Teacher Relationship Specialty Start Date End Date Franklin Squires MD 100 [facility] [place] [address] PCP - General Family Practice 03/08/16 documented as of this encounter
--- OUTSIDE RECORDS SUMMARY | 2024-07-27 12:45 | XMS_ITS | Encounter Summary ---
Author Organization [facility] Address [address] [address] Care Team Providers Care Director Medical Surgical Name Role Phone Franklin Squires MD Primary Care Provider Encounter Details Date Type Department Care Team (Late st Contact Info) Description 07/28/2014 Outside Hospital External to External, Provider No address [address] ER VISIT/TRANSFER Social History Tobacco Use [...] filedocumented in this encounter Care Teams Director Medical Surgical Relationship Specialty Start Date End Date Franklin Squires MD 100 [facility] [place] [address] PCP - General Family Practice 03/08/16 documented as of this encounter
--- OUTSIDE RECORDS SUMMARY | 2024-07-27 12:45 | XMS_ITS | Encounter Summary ---
Author Organization [facility] [address], [place] [address] Care Team Providers Care Senior Integration Developer Name Role Phone Franklin Squires MD Primary Care Provider [phone] Encounter Details Date Type Department Care Team (Late st Contact Info) Description 11/10/2014 Correspondence [facility] Physical Therapy [address] [place] [address] Trudi Raymundo, PT [address] [place] [address] LETTER OF MEDICAL NECESSITY Social History Tobacco [...] filedocumented in this encounter Care Teams Senior Integration Developer Relationship Specialty Start Date End Date Franklin Squires MD 100 [facility] [place] [address] PCP - General Family Practice 03/08/16 documented as of this encounter
--- OUTSIDE RECORDS SUMMARY | 2024-07-27 12:45 | XMS_ITS | Encounter Summary ---
Author Organization [facility] Address [address] [address] Care Team Providers Care Barrel Handler Name Role Phone Franklin Squires MD [...] filedocumented in this encounter Care Teams Barrel Handler Relationship Specialty Start Date End Date Franklin Squires MD 100 [facility] [place] [address] PCP - General Family Practice 03/08/16 documented as of this encounter
--- OUTSIDE RECORDS SUMMARY | 2024-07-27 12:45 | XMS_ITS | Encounter Summary ---
Author Organization [facility] Address [address] [address] Care Team Providers Care Visual Supervisor Name Role Phone Franklin Squires MD Primary Care Provider Encounter Details Date Type Department Care Team (Late st Contact Info) Description 06/07/2015 Correspondence [facility] Radiology [address] [place] [address] Radiology, Provider MRI SAFETY SHEET AND COMPATIBILITY [...] on filedocumented in this encounter Care Teams Visual Supervisor Relationship Specialty Start Date End Date Franklin Squires MD [address] [place], [place] [address] [address] PCP - General Family Practice 03/08/16 documented as of this encounter
--- OUTSIDE RECORDS SUMMARY | 2024-07-27 12:45 | XMS_ITS | Encounter Summary ---
Author Organization [facility] Address [address] [address] Care Team Providers Care Research Project Manager Name Role Phone Franklin Squires MD Primary Care Provider Encounter Details Date Type Department Care Team (Late st Contact Info) Description 11/23/2015 Correspondence External to External, [place] [address] LETTER [facility] Social History Tobacco Use Types [...] on filedocumented in this encounter Care Teams Research Project Manager Relationship Specialty Start Date End Date Franklin Squires MD [address] [place] [address] [place] [address] PCP - General Family Practice 03/08/16 documented as of this encounter
--- OUTSIDE RECORDS SUMMARY | 2024-07-27 12:45 | XMS_ITS | Encounter Summary ---
Author Organization [facility] Address [address], [place] [address] Care Team Providers Care Freight Car Cleaner Name Role Phone Franklin Squires MD Primary Care Provider [phone] Encounter Details Date Type Department Care Team (Late st Contact Info) Description 08/22/2014 Outside Hospital External to [facility] HOSP-D/C SUMMARY Social History Tobacco Use Types [...] on filedocumented in this encounter Care Teams Freight Car Cleaner Relationship Specialty Start Date End Date Franklin Squires MD 100 [facility] [address] PCP - General Family Practice 03/08/16 documented as of this encounter
--- OUTSIDE RECORDS SUMMARY | 2024-07-27 12:46 | XMS_ITS | Encounter Summary ---
Author Organization [facility] Address [address] [address] Care Team Providers Care Roading Engineer Name Role Phone Franklin Squires MD Primary Care Provider [phone] Encounter Details Date Type Department Care Team (Late st Contact Info) Description 12/16/2013 Correspondence [facility] Radiology [address] [place] [address] Radiology, Provider MRI SAFETY SHEET AND COMPATIBILITY [...] Radiology, Provider - 12/16/2013 12:00 AM CST DECORATOR documented in this encounter Plan of Treatment Not on file documented as of this encounter Visit Diagnoses Not on filedocumented in this encounter Care Teams Roading Engineer Relationship Specialty Start Date End Date Franklin Squires MD 100 [facility] [place] [address] PCP - General Family Practice 03/08/16 documented as of this encounter
--- OUTSIDE RECORDS SUMMARY | 2024-07-27 12:46 | XMS_ITS | Encounter Summary ---
Author Organization [facility] Address [address] [address] Care Team Providers Care Training Director Name Role Phone Franklin Squires MD Primary Care Provider Encounter Details Date Type Department Care Team (Late st Contact Info) Description 03/11/2014 Correspondence [facility] 401 Interventional Pain Management 401 [place] [address] Zelalem Cohen, DO [address] [place] [address] EMPI Social History Tobacco Use Types Packs/Day [...] filedocumented in this encounter Care Teams Training Director Relationship Specialty Start Date End Date Franklin Squires MD 100 [facility] [place] [address] PCP - General Family Practice 03/08/16 documented as of this encounter
--- OUTSIDE RECORDS SUMMARY | 2024-07-27 12:46 | XMS_ITS | Encounter Summary ---
Author Organization [facility] Address [address], [place] [address] Care Team Providers Care Breaker Mechanic Name Role Phone Franklin Squires MD Primary Care Provider [phone] Encounter Details Date Type Department Care Team (Late st Contact Info) Description 04/24/2012 Correspondence [facility] Radiology [address] [place] [address] Radiology, Provider MRI SAFETY SHEET AND COMPATIBILITY [...] on filedocumented in this encounter Care Teams Breaker Mechanic Relationship Specialty Start Date End Date Franklin Squires MD 100 [facility] [place] [address] PCP - General Family Practice 03/08/16 documented as of this encounter
--- OUTSIDE RECORDS SUMMARY | 2024-07-27 12:46 | XMS_ITS | Encounter Summary ---
Author Organization [facility] Address [address], [place] [address] Care Team Providers Care Chop Saw Operator Name Role Phone Franklin Squires MD Primary Care Provider Encounter Details Date Type Department Care Team (Late st Contact Info) Description 11/13/2012 Correspondence [facility] Radiology [address] [place] [address] Radiology, Provider MRI SAFETY SHEET AND COMPATIBILITY [...] RADIOLOGY, PROVIDER - 11/13/2012 12:00 AM CST HANDISING DIRECTOR documented in this encounter Plan of Treatment Not on file documented as of this encounter Visit Diagnoses Not on filedocumented in this encounter Care Teams Chop Saw Operator Relationship Specialty Start Date End Date Franklin Squires MD 100 [facility] [place] [address] PCP - General Family Practice 03/08/16 documented as of this encounter
--- OUTSIDE RECORDS SUMMARY | 2024-07-27 12:46 | XMS_ITS | Encounter Summary ---
Author Organization [facility] Address [address], [place] [address] Care Team Providers Care Sewing Machine Operator Paper Bags Name Role Phone Franklin Squires MD Primary Care Provider Encounter Details Date Type Department Care Team (Late st Contact Info) Description 05/04/2014 Correspondence [facility] 401 Physical Medicine 401 [facility] [place] [address] May Randle MD [address] [place] [address] LETTER OF MEDICAL NECESSITY FOR A WHEELCHAIR [...] filedocumented in this encounter Care Teams Sewing Machine Operator Paper Bags Relationship Specialty Start Date End Date Franklin Squires MD 100 [facility] [place] [address] PCP - General Family Practice 03/08/16 documented as of this encounter
--- OUTSIDE RECORDS SUMMARY | 2024-07-27 12:46 | XMS_ITS | Encounter Summary ---
Author Organization [facility] [address], [place] [address] Care Team Providers Care Oven Stripper Name Role Phone Franklin Squires MD Primary Care Provider [phone] Encounter Details Date Type Department Care Team (Late st Contact Info) Description 02/05/2014 Correspondence [facility] Physical Therapy [address] [place] [address] Trudi Raymundo, PT [address] [place] [address] LETTER OF MEDICAL NECESSITY FOR A WHEELCHAIR [...] filedocumented in this encounter Care Teams Oven Stripper Relationship Specialty Start Date End Date Franklin Squires MD 100 [facility] [place] [address] PCP - General Family Practice 03/08/16 documented as of this encounter
--- OUTSIDE RECORDS SUMMARY | 2024-07-27 12:46 | XMS_ITS | Encounter Summary ---
Author Organization [facility] Address [address], [place] [address] Care Team Providers Care Saturation Diver Name Role Phone Franklin Squires MD Primary Care Provider [phone] Encounter Details Date Type Department Care Team (Late st Contact Info) Description 09/17/2013 Correspondence External to External, [place] [address] EMPOWERMENT RULES Social History Tobacco Use Types [...] External, Provider - 09/17/2013 12:00 AM CST MOBILE CLUB MEMBERSHIP SALES AGENT documented in this encounter Plan of Treatment Not on file documented as of this encounter Visit Diagnoses Not on filedocumented in this encounter Care Teams Saturation Diver Relationship Specialty Start Date End Date Franklin Squires MD 100 [facility] [place] [address] PCP - General Family Practice 03/08/16 documented as of this encounter
--- OUTSIDE RECORDS SUMMARY | 2024-07-27 12:46 | XMS_ITS | Encounter Summary ---
Author Organization [facility] Address [address] [address] Care Team Providers Care Loom Changeover Operator Name Role Phone Franklin Squires MD [...] on filedocumented in this encounter Care Teams Loom Changeover Operator Relationship Specialty Start Date End Date Franklin Squires MD 100 [facility] [address] PCP - General Family Practice 03/08/16 documented as of this encounter
--- OUTSIDE RECORDS SUMMARY | 2024-07-27 12:46 | XMS_ITS | Encounter Summary ---
Author Organization [facility] Address [address] [address] Care Team Providers Care Metal Furniture Assembly Supervisor Name Role Phone Franklin Squires MD Primary Care Provider [phone] Encounter Details Date Type Department Care Team (Late st Contact Info) Description 01/08/2013 Scanned History External to Transferred Record, Provider [facility] Social History Tobacco Use Types Packs/Day Years [...] filedocumented in this encounter Care Teams Metal Furniture Assembly Supervisor Relationship Specialty Start Date End Date Franklin Squires MD 100 [facility] [address] PCP - General Family Practice 03/08/16 documented as of this encounter
--- OUTSIDE RECORDS SUMMARY | 2024-07-27 12:46 | XMS_ITS | Encounter Summary ---
Author Organization [facility] [address], [place] [address] Care Team Providers Care Instrument Inspector Name Role Phone Franklin Squires MD Primary Care Provider [phone] Encounter Details Date Type Department Care Team (Late st Contact Info) Description 10/26/2013 Correspondence [facility] Physical Therapy [address] [place] [address] Trudi Raymundo, PT [address] [place] [address] LETTER OF MEDICAL NECESSITY Social History Tobacco [...] Raymundo, PT - 10/26/2013 12:00 AM CST PAIR documented in this encounter Plan of Treatment Not on file documented as of this encounter Visit Diagnoses Not on filedocumented in this encounter Care Teams Instrument Inspector Relationship Specialty Start Date End Date Franklin Squires MD 100 [facility] [place] [address] PCP - General Family Practice 03/08/16 documented as of this encounter
--- OUTSIDE RECORDS SUMMARY | 2024-07-27 12:46 | XMS_ITS | Encounter Summary ---
Author Organization [facility] Address [address] [address] Care Team Providers Care [place]ck Hammerer Name Role Phone Franklin Squires MD Primary Care Provider Encounter Details Date Type Department Care Team (Late st Contact Info) Description 04/20/[address] [address] Radiology, Provider MRI SAFETY SHEET AND COMPATIBILITY [...] on filedocumented in this encounter Care Teams [place] Hammerer Relationship Specialty Start Date End Date Franklin Squires MD [address] [facility] [place] [address] PCP - General Family Practice 03/08/16 documented as of this encounter
--- OUTSIDE RECORDS SUMMARY | 2024-07-27 12:46 | XMS_ITS | Encounter Summary ---
Author Organization [email or web address] Address [address] [address] Care Team Providers Care Human Resources Office Manager Name Role Phone Franklin Squires MD Primary Care Provider [phone] Encounter Details Date Type Department Care Team (Late st Contact Info) Description 07/23/2013 Correspondence [facility] [address] [facility] [place] [address] Zelalem Cohen DO [address] [place] [address] [employer] Social History Tobacco Use Types [...] Cohen MD - 07/23/2013 12:00 AM CDT [employer] B[employer] OPERATOR documented in this encounter Plan of Treatment Not on file documented as of this encounter Visit Diagnoses Not on filedocumented in this encounter Care Teams Human Resources Office Manager Relationship Specialty Start Date End Date Franklin Squires MD [address] [facility] [place] [address] PCP - General Family Practice 03/08/16 documented as of this encounter
== END 2024-07-27 12:43 | disposition home or self-care (01) ==
LOC: WOUND 12:42
PROVIDERS: PCP Family Medicine; Visit Provider Nurse Practitioner Family
DX: M86.68 Other chronic osteomyelitis, other site (principal); L89.324 Pressure ulcer of left buttock, stage 4; G82.50 Quadriplegia, unspecified; Z99.3 Dependence on wheelchair
CPT/HCPCS: 11042

== ENCOUNTER 2024-08-03 12:42 | Outpatient (CLI) | payer MEDICARE, OTHER, SELFPAY ==
--- OUTSIDE RECORDS SUMMARY | 2024-08-03 12:45 | XMS_ITS | Continuity of Care Document ---
Author Name [facility] Organization [facility] Care Team Providers Care Regional Guide Name Role Phone [facility] Unavailable Unavailable Problems Combined list of problems from 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 It does not include entries that were removed or entered in error. Problem Status Onset Date Problem Type Date of Resolution Comments Source Abnormal liver function Active Condition [facility] Anemia ([facility] 572992916) Active Condition [facility] Anxiety ([facility] 93174882) Active Condition [facility] Autonomic dysreflexia Active Condition [facility] Chronic Pain Syndrome ([facility] 641713743) Active Condition [facility] Colostomy present Active Condition [facility] Constipation ([facility] 48351498) Active Condition [facility] Continuous opioid dependence Active Condition [facility] COPD - Chronic Obstructive Pulmonary Disease ([facility] 85428225) Active Condition [facility] Dementia Active Condition [facility] Depression ([facility] 54093025) Active Condition [facility] Diabetes Mellitus Type 2 ([facility] 65956875) Active Condition [facility] Ependymoma of spinal cord Active Condition [facility] Hearing Loss ([facility] 88411255) Active Condition [facility] History of Deep Vein Thrombosis ([facility] 228319775) Active Condition [facility] History of pressure injury Active Condition [facility] HTN - Hypertension ([facility] 04152153) Active Condition [facility] Hyperlipidemia ([facility] 43485802) Active Condition [facility] Hyponatremia Active Condition [facility] Long-term current use of anticoagulant Active Condition [facility] Neurogenic Bladder ([facility] 379110711) Active Condition [facility] Neurogenic bowel Active Condition [facility] Osteoporosis ([facility] 84442452) Active Condition [facility] Paraplegia Active Condition [facility] Spasticity Active Condition [facility] Suprapubic urinary catheter in situ Active Condition [facility] Supraventricular tachycardia Active Condition [facility] Tinnitus ([facility] 08493677) Active [facility] Vitamin D Deficiency ([facility] 9430484) Active Condition [facility] Diagnosis: ICD-10-CM Z73.6 Limitation of activities due to disability Active Diagnosis [facility] Diagnosis: ICD-10-CM G82.20 Paraplegia, unspecified Active Diagnosis [facility] Diagnosis: ICD-10-CM Z43.3 Encounter for attention to colostomy Active Diagnosis [facility] Diagnosis: ICD-10-CM Z71.3 Dietary counseling and surveillance Active Diagnosis [facility] Diagnosis: ICD-10-CM F32.A Depression, unspecified Active Diagnosis [facility] Medications Combined list of outpatient medications from Department of Defense and [facility] Affairs facilities.Medications provided include 1) [...] ed by: PIPO BARRETT Document ed at: [facility] ORAL ACTIVE Jagdish BARRETT 2022 [facility] AMLODIPINE BESYLATE (AMLODIPINE BESYLATE), 5 MG, TABLET, ORAL, fake [employer] 1000 ea. BOTTLE Active [id number] 4 2023 90 Pharmac y Data Transac tion Service Facilit y AMLODIPINE BESYLATE (amlodipine besylate), 5 MG, TABLET, ORAL, [employer], 1000 ea. BOTTLE Active [id number] 2023 90 Pharmac y Data Transac tion Service Facilit y AMLODIPINE BESYLATE 2.5MG TAB AMLODIPI NE BESYLATE 2.5MG TAB Non-VA TAKE TWO TABLETS BY MOUTH EVERY MORNING Feb 05, 2023 Non-[place] Document ed by: PIPO BARRETT Document ed at: [facility] ORAL ACTIVE Jagdish BARRETT 2022 [facility] AMOX TR-POTASSIU M CLAVULANATE (AMOXICILLI N/POTASSIUM CLAV), 875-125 MG, TABLET, ORAL, [employer] [place], 20 ea. BOTTLE Active [id number] 2022 14 Pharmac y Data Transac tion Service Facilit y AMOXICILLIN -CLAVULANAT E POTASS (amoxicilli n/potassium clavulanate ), 875-125 MG, TABLET, ORAL, [employer] [place],, 20 ea. BOTTLE Active [id number] 2023 20 Pharmac y Data Transac tion Service Facilit y AMOXICILLIN -CLAVULANAT E POTASS (amoxicilli n/potassium clavulanate ), 875-125 MG, TABLET, ORAL, [employer] [place],, 20 ea. BOTTLE Active [id number] 2023 56 Pharmac y Data Transac tion Service Facilit y ARIPIPRAZOL E (aripiprazo le), 2 MG, TABLET, ORAL, [employer] PHARMACE, 500 ea. BOTTLE Active [id number] 2023 180 Pharmac y Data Transac tion Service Facilit y ARIPIPRAZOL E (aripiprazo le), 2 MG, TABLET, ORAL, [employer] PHARMACE, 500 ea. BOTTLE Active [id number] 2023 180 Pharmac y Data Transac tion Service Facilit y ARIPIPRAZOL E TAB ARIPIPRA ZOLE TAB Non-VA TAKE 2MG BY MOUTH TWICE A DAY May 29, 2022 Non-VA Document ed by: SHANTAL HANSON Document ed at: [facility] ORAL ACTIVE Jey HANSON 2021 [facility] ATIVAN (LORAZEPAM) , 0.5 MG, TABLET, ORAL, VALEANT, 100 ea. BOTTLE Active [id number] 2023 120 Pharmac y Data Transac [...] BIOCON PHARMA I, 1000 ea. BOTTLE Active [id number] 2023 90 Pharmac y Data Transac tion Service Facilit y ATORVASTATI N CALCIUM (atorvastat in calcium), 40 MG, TABLET, ORAL, BIOCON PHARMA I, 1000 ea. BOTTLE Active [id number] 2023 90 Pharmac y Data Transac [...] ORAL, PAVEL PHARMACEU, 60 ea. BOTTLE Active [id number] 2023 180 Pharmac y Data Transac tion Service Facilit y BUPROPION HCL SR (bupropion HCl), 150 MG, TAB SR 12H, ORAL, PAVEL PHARMACEU, 60 ea. BOTTLE Active [id number] 2023 180 Pharmac y Data Transac [...] [facility] ACTIVE Jey HANSON 2021 [facility] CIPROFLOXAC IN HCL (CIPROFLOXA SHAR HCL), 750 MG, TABLET, ORAL, AUROBINDO PHARM, 50 ea. BOTTLE Active [id number] 2023 70 Pharmac y Data Transac tion Service Facilit y DONEPEZIL HCL (DONEPEZIL HCL), 5 MG, TABLET, ORAL, [employer] 1000 ea. BOTTLE Active [id number] 2023 90 Pharmac y Data Transac tion Service Facilit y DONEPEZIL HCL (DONEPEZIL HCL), 5 MG, TABLET, ORAL, [employer] 1000 ea. BOTTLE Cancele d [id number] : 2023 0 Pharmac y Data Transac tion Service Facilit y DONEPEZIL HCL (DONEPEZIL HCL), 5 MG, TABLET, ORAL, [employer] 1000 ea. BOTTLE Active [id number] 2023 90 Pharmac y Data Transac tion Service Facilit y DONEPEZIL HCL 10MG TAB DONEPEZI L HCL 10MG TAB Non-VA TAKE ONE-HALF TABLET BY MOUTH EVERY DAY May 29, 2022 Non-VA Document ed by: SHANTAL HANSON Document ed at: [facility] ORAL ACTIVE Jey HANSON 2021 [facility] DULOXETINE HCL (duloxetine HCl), 60 MG, CAPSULE DR, ORAL, [employer] 1000 ea. BOTTLE Active [id number] 2023 180 Pharmac y Data Transac tion Service Facilit y DULOXETINE HCL (duloxetine HCl), 60 MG, CAPSULE DR, ORAL, [employer] 1000 ea. BOTTLE Active [id number] 2023 180 Pharmac y Data Transac tion Service Facilit y DULOXETINE HCL 30MG CAP,EC DULOXETI NE HCL 30MG CAP,EC Non-VA TAKE 2 CAPSULES BY MOUTH TWICE A DAY May 29, 2022 Non-VA Document ed by: SHANTAL HANSON Document ed at: [facility] ORAL ACTIVE Jey HANSON 2021 [facility] FAMOTIDINE (famotidine ), 20 MG, TABLET, ORAL, [employer] 1000 ea. BOTTLE Active [id number] 2023 180 Pharmac y Data Transac tion Service Facilit y FAMOTIDINE 20MG TAB FAMOTIDI NE 20MG TAB Non-VA TAKE ONE TABLET BY MOUTH TWICE A DAY May 29, 2022 Non-VA Document ed by: SHANTAL HANSON Document ed at: [facility] ORAL ACTIVE Jey HANSON 2021 [facility] FUROSEMIDE (furosemide ), 40 MG, TABLET, ORAL, Talari NetworksCAR, 1000 ea. BOTTLE Active [id number] 2023 180 Pharmac y Data Transac tion Service Facilit y FUROSEMIDE 40MG TAB FUROSEMI DE 40MG TAB Non-VA TAKE ONE TABLET BY MOUTH TWICE A DAY May 29, 2022 Non-VA Document ed by: SHANTAL HANSON Document ed at: [facility] ORAL ACTIVE Jey HANSON 2021 [facility] GABAPENTIN (gabapentin ), 400 MG, CAPSULE, ORAL, [employer] 500 ea. BOTTLE Active [id number] 2023 270 Pharmac y Data Transac tion Service Facilit y GABAPENTIN (gabapentin ), 400 MG, CAPSULE, ORAL, [employer] PHARMAC, 500 ea. BOTTLE Active [id number] 2023 270 Pharmac y Data Transac tion Service Facilit y GABAPENTIN (gabapentin ), 400 MG, CAPSULE, ORAL, XLCARE PHARMACE, 500 ea. BOTTLE Cancele d [id number] : 2023 0 Pharmac y Data Transac tion Service Facilit y GABAPENTIN 400MG CAP GABAPENT IN 400MG CAP Non-VA TAKE 1 CAPSULE BY MOUTH THREE TIMES A DAY May 29, 2022 Non-VA Document ed by: SHANTAL HANSON Document ed at: [facility] ORAL ACTIVE Jey HANSON 2021 [facility] LORAZEPAM (lorazepam) , 0.5 MG, TABLET, ORAL, AUROB[employer]O PHARM, 500 ea. BOTTLE Active [id number] 2023 120 Pharmac y Data Transac tion Service Facilit y LORAZEPAM (lorazepam) , 0.5 MG, TABLET, ORAL, LEADING PHARMA, 1000 ea. BOTTLE Active [id number] 2023 120 Pharmac y Data Transac tion Service Facilit y LORAZEPAM (lorazepam) , 0.5 MG, TABLET, ORAL, LEADING PHARMA, 1000 ea. BOTTLE Active [id number] 2023 120 Pharmac y Data Transac tion Service Facilit y LORAZEPAM (lorazepam) , 0.5 MG, TABLET, ORAL, LEADING PHARMA, 1000 ea. BOTTLE Active [id number] 2023 120 Pharmac y Data Transac tion Service Facilit y LORAZEPAM (lorazepam) , 0.5 MG, TABLET, ORAL, LEADING PHARMA, 500 ea. BOTTLE Active [id number] 2023 120 Pharmac y Data Transac tion Service Facilit y LORAZEPAM 0.5MG TAB LORAZEPA M 0.5MG TAB Non-VA TAKE ONE TABLET BY MOUTH THREE TIMES A DAY AND TAKE TWO TABLETS BY MOUTH AT BEDTIME Feb 05, 2023 Non-VA Document ed by: PIPO BARRETT Document ed at: [facility] ORAL ACTIVE Jagdish BARRETT 2022 [facility] MILK OF MAGNESIA MILK OF [...] ed by: PIPO BARRETT Document ed at: [facility] NASAL ACTIVE Jagdish BARRETT 2022 [facility] OXYCODONE HCL (OXYCODONE HCL), 10 MG, TABLET, ORAL, [employer] 100 ea. BOTTLE Active [id number] 2023 120 Pharmac y Data Transac tion Service Facilit y OXYCODONE HCL (OXYCODONE HCL), 10 MG, TABLET, ORAL, [employer] 100 ea. BOTTLE Active [id number] 2023 120 Pharmac y Data Transac tion Service Facilit y OXYCODONE HCL (OXYCODONE HCL), 10 MG, TABLET, ORAL, [employer] 100 ea. BOTTLE Active [id number] 2023 120 Pharmac y Data Transac tion Service Facilit y OXYCODONE HCL (OXYCODONE HCL), 10 MG, TABLET, ORAL, [employer] 100 ea. BOTTLE Active [id number] 2023 120 Pharmac y Data Transac tion Service Facilit y OXYCODONE HCL (OXYCODONE HCL), 10 MG, TABLET, ORAL, [employer] 100 ea. BOTTLE Active [id number] 2023 120 Pharmac y Data Transac tion Service Facilit y OXYCODONE HCL (OXYCODONE HCL), 10 MG, TABLET, ORAL, [employer] 100 ea. BOTTLE Active [id number] 2023 120 Pharmac y Data Transac tion Service Facilit y OXYCODONE HCL (OXYCODONE HCL), 10 MG, TABLET, ORAL, [employer] 100 ea. BOTTLE Active [id number] 2022 120 Pharmac y Data Transac tion Service Facilit y OXYCODONE HCL 5MG TAB OXYCODON E HCL 5MG TAB Non-VA TAKE TWO TABLETS BY MOUTH FOUR TIMES A DAY Feb 05, 2023 Non-VA Document ed by: PIPO BARRETT Document ed at: [facility] ORAL ACTIVE Jagdish BARRETT 2022 [facility] POTASSIUM CHLORIDE (potassium chloride), 10 MEQ, TAB ER PRT, ORAL, [employer]LC[employer] PHARMACE, 100 ea. BOTTLE Active [id number] 2023 180 Pharmac y Data Transac tion Service Facilit y POTASSIUM CHLORIDE (potassium chloride), 10 MEQ, TAB ER PRT, ORAL, [employer] PHARMACE, 100 ea. BOTTLE Active [id number] 2023 180 Pharmac y Data Transac tion Service Facilit y POTASSIUM CHLORIDE (potassium chloride), 20 MEQ, TAB ER PRT, ORAL, [employer] PHARMACE, 100 ea. BOTTLE Active [id number] 2023 90 Pharmac y Data Transac [...] WHITLOCK&N/UNI LUIS, 30 g TUBE Cancele d [id number] : 2023 0 Pharmac y Data Transac tion Service Facilit y WARFARIN SODIUM (warfarin sodium), 5 MG, TABLET, ORAL, [employer]., 1000 ea. BOTTLE Cancele d [id number] : 2022 0 Pharmac y Data Transac tion Service Facilit y WARFARIN SODIUM (WARFARIN SODIUM), 5 MG, TABLET, ORAL, [employer], 1000 ea. BOTTLE Active [id number] 2023 25 Pharmac y Data Transac tion Service Facilit y WARFARIN SODIUM (WARFARIN SODIUM), 5 MG, TABLET, ORAL, [employer] [place], 1000 ea. BOTTLE Active [id number] 2023 12 Pharmac y Data Transac tion Service Facilit y WARFARIN SODIUM (WARFARIN SODIUM), 5 MG, TABLET, ORAL, [employer] [place], 1000 ea. BOTTLE Active [id number] 2023 40 Pharmac y Data Transac tion Service Facilit y WARFARIN SODIUM (WARFARIN SODIUM), 5 MG, TABLET, ORAL, [employer] [place], 1000 ea. BOTTLE Cancele d [id number] : 2022 0 Pharmac y Data Transac tion Service Facilit y WARFARIN SODIUM (warfarin sodium), 7.5 MG, TABLET, ORAL, [employer] [place], 100 ea. BOTTLE Active [id number] 2023 51 Pharmac y Data Transac tion Service Facilit y WARFARIN SODIUM (warfarin sodium), 7.5 MG, TABLET, ORAL, [employer] [place], 100 ea. BOTTLE Active [id number] 2023 78 Pharmac y Data Transac tion Service Facilit y WARFARIN TAB WARFARIN TAB Non-VA TAKE 5MG BY MOUTH SUN/THUR S AND TAKE 7.5MG BY MOUTH ALL OTHER DAYS Feb 05, 2023 Non-VA Document ed by: PIPO BARRETT Document ed at: [facility] ORAL ACTIVE Jagdish BARRETT 2022 [facility] Allergies, Adverse Reactions, Alerts Combined list of allergies from 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 It does not include entries that were removed or entered in error. Substance Category Reaction Severity Reaction type Status Date Reported Comments Source AMOXICILLIN Propensity to adverse reactions to drug (finding) Eruption active 2 [facility] METOLAZONE Propensity to adverse reactions to drug (finding) Itching active 2 [facility] MORPHINE Propensity to adverse reactions to drug (finding) Delirium active 2 [facility] PIPERACILLIN Propensity to adverse reactions to drug (finding) Eruption active 2 [place] [facility] SULFA DRUGS Propensity to adverse reactions to drug (finding) Eruption active 2 [facility] TAZOBACTAM SODIUM Propensity to adverse reactions to drug (finding) Eruption active 2 [facility] Immunizations Combined list of available immunizations from the 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 Immunization Series Date Given Administered By Site Reaction Lot Number CVX Code Drug Architectural Inspector Status Comments Source COVID-19 ([employer]), MRNA, LNP-S, BIVALENT, PF, 30 MCG/0.3 ML DOSE 2021 300 complet ed [facility] INFLUENZA, ADJUVANTED, QUADRIVALENT, PF 2021 205 complet ed [facility] INFLUENZA, UNSPECIFIED FORMULATION 2021 88 complet ed [place] recall [facility] COVID-19 ([employer]), MRNA, LNP-S, PF, 30 MCG/0.3 ML DOSE [...] CONJUGATE PCV 13 2014 133 complet ed [facility] INFLUENZA, HIGH-DOSE, TRIVALENT, PF 2014 135 [...] [facility] 2012 121 complet ed [facility] INFLUENZA, SPLIT VIRUS, TRIVALENT, PRESERVATIVE 2011 141 complet ed [facility] INFLUENZA, SPLIT VIRUS, TRIVALENT, PF 2010 140 complet ed [facility] PNEUMOCOCCAL POLYSACCHARID E PPV23 2010 33 complet ed [facility] TDAP 2010 115 complet ed [facility] INFLUENZA, SPLIT VIRUS, TRIVALENT, PRESERVATIVE 2009 141 complet ed [facility] NOVEL INFLUENZA-H1N 1-09, ALL FORMULATIONS [...] PRESERVATIVE 2003 141 complet ed [facility] Results Combined list of recent chemistry, [...] Feb 05, 2023 03:10 PM Reporting Lab: [facility] [address] Performing Lab: [facility] [address] [place] [facility] CYSTATIN C WITH EGFR CYSTATIN C AND GLOMERULAR FILTRATION RATE BY CYSTATIN C-BASED FORMULA PANEL - SERUM OR PLASMA 53 60 02/13 L Specimen Type: PLASMA No comment entered. Ordering Provider: ANKUSH BOWMAN Report Released Date/Time: Feb 05, 2023 03:10 PM Reporting Lab: [facility] [address] Performing Lab: [facility] [address] [place] [facility] BASIC METABOLI C PANEL+MG CREATININE [MASS/VOLU ME] IN SERUM OR PLASMA 0.7 mg/dL 0.7 - 1.2 02/13 Specimen Type: PLASMA No comment entered. Ordering Provider: ANKUSH BOWMAN Report Released Date/Time: Feb 05, 2023 03:10 PM Reporting Lab: [facility] [address] Performing Lab: [facility] [address] [place] [facility] BASIC METABOLI C PANEL+MG UREA NITROGEN [MASS/VOLU ME] IN SERUM OR PLASMA 15 mg/dL 8 - 02/13 Specimen Type: PLASMA No comment entered. Ordering Provider: ANKUSH BOWMAN Report Released Date/Time: Feb 05, 2023 03:10 PM Reporting Lab: [facility] [address] Performing Lab: [facility] [address] [place] [facility] BASIC METABOLI C PANEL+MG GLUCOSE [MASS/VOLU ME] IN SERUM OR PLASMA 140 mg/dL 70 - 100 02/13 H Specimen Type: PLASMA No comment entered. Ordering Provider: ANKUSH BOWMAN Report Released Date/Time: Feb 05, 2023 03:10 PM Reporting Lab: [facility] [address] Performing Lab: [facility] [address] [place] [facility] BASIC METABOLI C PANEL+MG SODIUM [MOLES/VOL UME] IN SERUM OR PLASMA 135 mmol/L 136 - 145 02/13 L Specimen Type: PLASMA No comment entered. Ordering Provider: ANKUSH BOWMAN Report Released Date/Time: Feb 05, 2023 03:10 PM Reporting Lab: [facility] [address] Performing Lab: [facility] [address] [place] [facility] BASIC METABOLI C PANEL+MG POTASSIUM [MOLES/VOL UME] IN SERUM OR PLASMA 4.0 mmol/L 3.5 - 5.1 02/13 Specimen Type: PLASMA No comment entered. Ordering Provider: ANKUSH BOWMAN Report Released Date/Time: Feb 05, 2023 03:10 PM Reporting Lab: [facility] [address] Performing Lab: [facility] [address] [place] [facility] BASIC METABOLI C PANEL+MG CHLORIDE [MOLES/VOL UME] IN SERUM OR PLASMA 99 mmol/L 98 - 107 02/13 Specimen Type: PLASMA No comment entered. Ordering Provider: ANKUSH BOWMAN Report Released Date/Time: Feb 05, 2023 03:10 PM Reporting Lab: [facility] [address] Performing Lab: [facility] [address] [place] [facility] BASIC METABOLI C PANEL+MG CARBON DIOXIDE, TOTAL [MOLES/VOL UME] IN SERUM OR PLASMA 29 mmol/L 22 - 29 02/13 Specimen Type: PLASMA No comment entered. Ordering Provider: ANKUSH BOWMAN Report Released Date/Time: Feb 05, 2023 03:10 PM Reporting Lab: [facility] [address] Performing Lab: [facility] [address] [place] [facility] BASIC METABOLI C PANEL+MG CALCIUM [MASS/VOLU ME] IN SERUM OR PLASMA 9.2 mg/dL 8.4 - 10.2 02/13 Specimen Type: PLASMA No comment entered. Ordering Provider: ANKUSH BOWMAN Report Released Date/Time: Feb 05, 2023 03:10 PM Reporting Lab: [facility] [address] Performing Lab: [facility] [address] [place] [facility] BASIC METABOLI C PANEL+MG MAGNESIUM [MASS/VOLU ME] IN SERUM OR PLASMA 2.0 mg/dL 1.6 - 2.6 02/13 Specimen Type: PLASMA No comment entered. Ordering Provider: ANKUSH BOWMAN Report Released Date/Time: Feb 05, 2023 03:10 PM Reporting Lab: [facility] [address] Performing Lab: [facility] [address] [place] [facility] BASIC METABOLI C PANEL+MG ANION GAP IN SERUM OR PLASMA 7 mmol/L 5 - 15 02/13 Specimen Type: PLASMA No comment entered. Ordering Provider: ANKUSH BOWMAN Report Released Date/Time: Feb 05, 2023 03:10 PM Reporting Lab: [facility] [address] Performing Lab: [facility] [address] [place] [facility] BASIC METABOLI C PANEL+MG GLOMERULAR FILTRATION RATE/1.73 SQ M.PREDICTE D [VOLUME RATE/AREA] IN SERUM, PLASMA OR BLOOD BY CREATININE -BASED FORMULA (CKD-EPI) >90 60 02/13 Specimen Type: PLASMA No comment entered. Ordering Provider: ANKUSH BOWMAN Report Released Date/Time: Feb 05, 2023 03:10 PM Reporting Lab: [facility] [address] Performing Lab: [facility] [address] [place] URINALYS IS COLOR OF URINE YELLOW 10/08 Specimen Type: URINE No comment entered. Ordering Provider: ANKUSH BOWMAN Report Released Date/Time: Sep 24, 2022 01:55 PM Reporting Lab: [facility] [address] Performing Lab: [facility] [address] [place] [facility] URINALYS IS SPECIFIC GRAVITY OF URINE 1.023 1.003 - 1.035 10/08 Specimen Type: URINE No comment entered. Ordering Provider: ANKUSH BOWMAN Report Released Date/Time: Sep 24, 2022 01:55 PM Reporting Lab: [facility] [address] Performing Lab: [facility] [address] [place] [facility] URINALYS IS BILIRUBIN. TOTAL [PRESENCE] IN URINE BY TEST STRIP NEGATIVE 10/08 Specimen Type: URINE No comment entered. Ordering Provider: ANKUSH BOWMAN Report Released Date/Time: Sep 24, 2022 01:55 PM Reporting Lab: [facility] [address] Performing Lab: [facility] [address] [place] [facility] URINALYS IS KETONES [MASS/VOLU ME] IN URINE BY TEST STRIP NEGATIVE 10/08 Specimen Type: URINE No comment entered. Ordering Provider: ANKUSH BOWMAN Report Released Date/Time: Sep 24, 2022 01:55 PM Reporting Lab: [facility] [address] Performing Lab: [facility] [address] [place] [facility] URINALYS IS GLUCOSE [MASS/VOLU ME] IN URINE BY TEST STRIP NEGATIVE mg/dL <30 - 30 10/08 Specimen Type: URINE No comment entered. Ordering Provider: ANKUSH BOWMAN Report Released Date/Time: Sep 24, 2022 01:55 PM Reporting Lab: [facility] [address] Performing Lab: [facility] [address] [place] [facility] URINALYS IS PROTEIN [MASS/VOLU ME] IN URINE BY TEST STRIP 30 mg/dL <20 - 20 10/08 Specimen Type: URINE No comment entered. Ordering Provider: ANKUSH BOWMAN Report Released Date/Time: Sep 24, 2022 01:55 PM Reporting Lab: [facility] [address] Performing Lab: [facility] [address] [place] [facility] URINALYS IS PH OF URINE BY TEST STRIP 7.5 5.0 - 8.0 10/08 Specimen Type: URINE No comment entered. Ordering Provider: ANKUSH BOWMAN Report Released Date/Time: Sep 24, 2022 01:55 PM Reporting Lab: [facility] [address] Performing Lab: [facility] [address] [place] [facility] URINALYS IS LEUKOCYTES [#/AREA] IN URINE SEDIMENT BY MICROSCOPY HIGH POWER FIELD >180/[HP F] 0 - 7 10/08 H Specimen Type: URINE No comment entered. Ordering Provider: ANKUSH BOWMAN Report Released Date/Time: Sep 24, 2022 01:55 PM Reporting Lab: [facility] [address] Performing Lab: [facility] [address] [place] URINALYS IS BACTERIA [PRESENCE] IN URINE SEDIMENT BY LIGHT MICROSCOPY MANY 10/08 Specimen Type: URINE No comment entered. Ordering Provider: ANKUSH BOWMAN Report Released Date/Time: Sep 24, 2022 01:55 PM Reporting Lab: [facility] [address] Performing Lab: [facility] [address] [facility] URINALYS IS ERYTHROCYT ES [#/AREA] IN URINE SEDIMENT BY MICROSCOPY HIGH POWER FIELD 33 /[HPF] 0 - 3 10/08 H Specimen Type: URINE No comment entered. Ordering Provider: ANKUSH BOWMAN Report Released Date/Time: Sep 24, 2022 01:55 PM Reporting Lab: [facility] [id number] Performing Lab: [facility] [id number] [facility] APPEARANCE OF URINE EX.TURBI D 10/08 Specimen Type: URINE No comment entered. Ordering Provider: ANKUSH BOWMAN Report Released Date/Time: Sep 24, 2022 01:55 PM Reporting Lab: [facility] [id number] Performing Lab: [facility] [id number] [place] [facility] URINALYS IS EPITHELIAL CELLS.SQUA MOUS [#/AREA] IN URINE SEDIMENT BY MICROSCOPY HIGH POWER FIELD 1 /[HPF] 10/08 Specimen Type: URINE No comment entered. Ordering Provider: ANKUSH BOWMAN Report Released Date/Time: Sep 24, 2022 01:55 PM Reporting Lab: [facility] [address] Performing Lab: [facility] [address] [place] [facility] URINALYS IS HEMOGLOBIN [PRESENCE] IN URINE BY TEST STRIP 1+ 10/08 Specimen Type: URINE No comment entered. Ordering Provider: ANKUSH BOWMAN Report Released Date/Time: Sep 24, 2022 01:55 PM Reporting Lab: [facility] [address] Performing Lab: [facility] [address] [place] [facility] URINALYS IS NITRITE [PRESENCE] IN URINE BY TEST STRIP NEGATIVE 10/08 Specimen Type: URINE No comment entered. Ordering Provider: ANKUSH BOWMAN Report Released Date/Time: Sep 24, 2022 01:55 PM Reporting Lab: [facility] [address] Performing Lab: [facility] [address] [place] [facility] URINALYS IS LEUKOCYTE CLUMPS [#/VOLUME] IN URINE BY AUTOMATED COUNT PRESENT 10/08 Specimen Type: URINE No comment entered. Ordering Provider: ANKUSH BOWMAN Report Released Date/Time: Sep 24, 2022 01:55 PM Reporting Lab: [facility] [address] Performing Lab: [facility] [address] [place] [facility] URINALYS IS LEUKOCYTE ESTERASE [PRESENCE] IN URINE BY TEST STRIP 500 10/08 Specimen Type: URINE No comment entered. Ordering Provider: ANKUSH BOWMAN Report Released Date/Time: Sep 24, 2022 01:55 PM Reporting Lab: [facility] [address] Performing Lab: [facility] [address] [place] [facility] ALBUMIN ALBUMIN [MASS/VOLU ME] IN SERUM OR PLASMA 4.2 g/dL 3.5 - 5.2 10/08 Specimen Type: PLASMA No comment entered. Ordering Provider: ANKUSH BOWMAN Report Released Date/Time: Sep 24, 2022 01:55 PM Reporting Lab: [facility] [address] Performing Lab: [facility] [address] [place] [facility] PRE-ALBU MIN PREALBUMIN [MASS/VOLU ME] IN SERUM OR PLASMA 28.4 mg/dL 14.0 - 45.0 10/08 Specimen Type: SERUM No comment entered. Ordering Provider: ANKUSH BOWMAN Report Released Date/Time: Sep 24, 2022 01:55 PM Reporting Lab: [facility] [address] Performing Lab: [facility] [address] [place] [facility] CBC & DIFF LEUKOCYTES [#/VOLUME] IN BLOOD BY AUTOMATED COUNT 7.32 10*3/uL 4.0 - 11.0 10/08 Specimen Type: BLOOD Comment: Automated Differentia l Performed Ordering Provider: ANKUSH BOWMAN Report Released Date/Time: Sep 24, 2022 01:55 PM Reporting Lab: [facility] [address] Performing Lab: [facility] [address] [place] [facility] CBC & DIFF ERYTHROCYT ES [#/VOLUME] IN BLOOD BY AUTOMATED COUNT 4.80 10*6/uL 4.6 - 6.2 10/08 Specimen Type: BLOOD Comment: Automated Differentia l Performed Ordering Provider: ANKUSH BOWMAN Report Released Date/Time: Sep 24, 2022 01:55 PM Reporting Lab: [facility] [address] Performing Lab: [facility] [address] [place] [facility] CBC & DIFF HEMOGLOBIN [MASS/VOLU ME] IN BLOOD 14.7 g/dL 13.5 - 17.9 10/08 Specimen Type: BLOOD Comment: Automated Differentia l Performed Ordering Provider: ANKUSH BOWMAN Report Released Date/Time: Sep 24, 2022 01:55 PM Reporting Lab: [facility] [address] Performing Lab: [facility] [address] [place] [facility] CBC & DIFF HEMATOCRIT [VOLUME FRACTION] OF BLOOD BY AUTOMATED COUNT 44.2 41 - 54 10/08 Specimen Type: BLOOD Comment: Automated Differentia l Performed Ordering Provider: ANKUSH BOWMAN Report Released Date/Time: Sep 24, 2022 01:55 PM Reporting Lab: [facility] [address] Performing Lab: [facility] [address] [place] [facility] CBC & DIFF MCV [ENTITIC VOLUME] BY AUTOMATED COUNT 92.1 fL 80 - 100 10/08 Specimen Type: BLOOD Comment: Automated Differentia l Performed Ordering Provider: ANKUSH BOWMAN Report Released Date/Time: Sep 24, 2022 01:55 PM Reporting Lab: [facility] [address] Performing Lab: [facility] [address] [place] [facility] CBC & DIFF MCH [ENTITIC MASS] BY AUTOMATED COUNT 30.6 pg 27 - 33 10/08 Specimen Type: BLOOD Comment: Automated Differentia l Performed Ordering Provider: ANKUSH BOWMAN Report Released Date/Time: Sep 24, 2022 01:55 PM Reporting Lab: [facility] [address] Performing Lab: [facility] [address] [place] [facility] CBC & DIFF MCHC [MASS/VOLU ME] BY AUTOMATED COUNT 33.3 g/dL 32.0 - 37.5 10/08 Specimen Type: BLOOD Comment: Automated Differentia l Performed Ordering Provider: ANKUSH BOWMAN Report Released Date/Time: Sep 24, 2022 01:55 PM Reporting Lab: [facility] [address] Performing Lab: [facility] [address] [place] [facility] CBC & DIFF PLATELETS [#/VOLUME] IN BLOOD BY AUTOMATED COUNT 144 10*3/uL 150 - 400 10/08 L Specimen Type: BLOOD Comment: Automated Differentia l Performed Ordering Provider: ANKUSH BOWMAN Report Released Date/Time: Sep 24, 2022 01:55 PM Reporting Lab: [facility] [address] Performing Lab: [facility] [address] [place] [facility] CBC & DIFF PLATELET MEAN VOLUME [ENTITIC VOLUME] IN BLOOD BY AUTOMATED COUNT 10.8 fL 7.4 - 10.4 10/08 H Specimen Type: BLOOD Comment: Automated Differentia l Performed Ordering Provider: ANKUSH BOWMAN Report Released Date/Time: Sep 24, 2022 01:55 PM Reporting Lab: [facility] [address] Performing Lab: [facility] [address] [place] [facility] CBC & DIFF NEUTROPHIL S/100 LEUKOCYTES IN BLOOD BY MANUAL COUNT 55.5 10/08 Specimen Type: BLOOD Comment: Automated Differentia l Performed Ordering Provider: ANKUSH BOWMAN Report Released Date/Time: Sep 24, 2022 01:55 PM Reporting Lab: [facility] [address] Performing Lab: [facility] [address] [place] [facility] CBC & DIFF LYMPHOCYTE S/100 LEUKOCYTES IN BLOOD BY MANUAL COUNT 31.4 10/08 Specimen Type: BLOOD Comment: Automated Differentia l Performed Ordering Provider: ANKUSH BOWMAN Report Released Date/Time: Sep 24, 2022 01:55 PM Reporting Lab: [facility] [address] Performing Lab: [facility] [address] [place] [facility] CBC & DIFF MONOCYTES/ 100 LEUKOCYTES IN BLOOD BY AUTOMATED COUNT 10.2 10/08 Specimen Type: BLOOD Comment: Automated Differentia l Performed Ordering Provider: ANKUSH BOWMAN Report Released Date/Time: Sep 24, 2022 01:55 PM Reporting Lab: [facility] [address] Performing Lab: [facility] [address] [place] [facility] CBC & DIFF EOSINOPHIL S/100 LEUKOCYTES IN BLOOD BY AUTOMATED COUNT 2.2 10/08 Specimen Type: BLOOD Comment: Automated Differentia l Performed Ordering Provider: ANKUSH BOWMAN Report Released Date/Time: Sep 24, 2022 01:55 PM Reporting Lab: [facility] [address] Performing Lab: [facility] [address] [place] [facility] CBC & DIFF BASOPHILS/ 100 LEUKOCYTES IN BLOOD BY MANUAL COUNT 0.4 10/08 Specimen Type: BLOOD Comment: Automated Differentia l Performed Ordering Provider: ANKUSH BOWMAN Report Released Date/Time: Sep 24, 2022 01:55 PM Reporting Lab: [facility] [address] Performing Lab: [facility] [address] [place] [facility] CBC & DIFF ERYTHROCYT E DISTRIBUTI ON WIDTH [RATIO] BY AUTOMATED COUNT 15.9 11.5 - 14.5 10/08 H Specimen Type: BLOOD Comment: Automated Differentia l Performed Ordering Provider: ANKUSH BOWMAN Report Released Date/Time: Sep 24, 2022 01:55 PM Reporting Lab: [facility] [address] Performing Lab: [facility] [address] [place] [facility] CBC & DIFF LYMPHOCYTE S [#/VOLUME] IN BLOOD BY AUTOMATED COUNT 2.30 10*3/uL 1.0 - 4.0 10/08 Specimen Type: BLOOD Comment: Automated Differentia l Performed Ordering Provider: ANKUSH BOWMAN Report Released Date/Time: Sep 24, 2022 01:55 PM Reporting Lab: [facility] [address] Performing Lab: [facility] [address] [place] [facility] CBC & DIFF MONOCYTES [#/VOLUME] IN BLOOD BY AUTOMATED COUNT 0.75 10*3/uL 0.1 - 1.0 10/08 Specimen Type: BLOOD Comment: Automated Differentia l Performed Ordering Provider: ANKUSH BOWMAN Report Released Date/Time: Sep 24, 2022 01:55 PM Reporting Lab: [facility] [address] Performing Lab: [facility] [address] [place] [facility] CBC & DIFF NEUTROPHIL S [#/VOLUME] IN BLOOD BY AUTOMATED COUNT 4.06 10*3/uL 2.0 - 7.7 10/08 Specimen Type: BLOOD Comment: Automated Differentia l Performed Ordering Provider: ANKUSH BOWMAN Report Released Date/Time: Sep 24, 2022 01:55 PM Reporting Lab: [facility] [address] Performing Lab: [facility] [address] [place] [facility] CBC & DIFF EOSINOPHIL S [#/VOLUME] IN BLOOD BY AUTOMATED COUNT 0.16 10*3/uL 0 - 0.5 10/08 Specimen Type: BLOOD Comment: Automated Differentia l Performed Ordering Provider: ANKUSH BOWMAN Report Released Date/Time: Sep 24, 2022 01:55 PM Reporting Lab: [facility] [address] Performing Lab: [facility] [address] [place] [facility] CBC & DIFF BASOPHILS [#/VOLUME] IN BLOOD BY AUTOMATED COUNT 0.03 10*3/uL 0 - 0.2 10/08 Specimen Type: BLOOD Comment: Automated Differentia l Performed Ordering Provider: ANKUSH BOWMAN Report Released Date/Time: Sep 24, 2022 01:55 PM Reporting Lab: [facility] [address] Performing Lab: [facility] [address] [place] [facility] CBC & DIFF IG(META,MY MALACHI,PRO) 0.3 10/08 Specimen Type: BLOOD Comment: Automated Differentia l Performed Ordering Provider: ANKUSH BOWMAN Report Released Date/Time: Sep 24, 2022 01:55 PM Reporting Lab: [facility] [address] Performing Lab: [facility] [address] [place] [facility] CBC & DIFF IMMATURE GRANULOCYT ES [PRESENCE] IN BLOOD BY AUTOMATED COUNT 0.02 10*3/uL 0 - 0.1 10/08 Specimen Type: BLOOD Comment: Automated Differentia l Performed Ordering Provider: ANKUSH BOWMAN Report Released Date/Time: Sep 24, 2022 01:55 PM Reporting Lab: [facility] [address] Performing Lab: [facility] [address] [place] [facility] COMPREHE NSIVE METABOLI C PANEL+MG CREATININE [MASS/VOLU ME] IN SERUM OR PLASMA 0.7 mg/dL 0.7 - 1.2 10/08 Specimen Type: PLASMA No comment entered. Ordering Provider: ANKUSH BOWMAN Report Released Date/Time: Sep 24, 2022 01:55 PM Reporting Lab: [facility] [address] Performing Lab: [facility] [address] [place] [facility] COMPREHE NSIVE METABOLI C PANEL+MG UREA NITROGEN [MASS/VOLU ME] IN SERUM OR PLASMA 16 mg/dL 8 - 26 10/08 Specimen Type: PLASMA No comment entered. Ordering Provider: ANKUSH BOWMAN Report Released Date/Time: Sep 24, 2022 01:55 PM Reporting Lab: [facility] [address] Performing Lab: [facility] [address] [place] [facility] COMPREHE NSIVE METABOLI C PANEL+MG GLUCOSE [MASS/VOLU ME] IN SERUM OR PLASMA 94 mg/dL 70 - 100 10/08 Specimen Type: PLASMA No comment entered. Ordering Provider: ANKUSH BOWMAN Report Released Date/Time: Sep 24, 2022 01:55 PM Reporting Lab: [facility] [address] Performing Lab: [facility] [address] [place] [facility] COMPREHE NSIVE METABOLI C PANEL+MG SODIUM [MOLES/VOL UME] IN SERUM OR PLASMA 138 mmol/L 136 - 145 10/08 Specimen Type: PLASMA No comment entered. Ordering Provider: ANKUSH BOWMAN Report Released Date/Time: Sep 24, 2022 01:55 PM Reporting Lab: [facility] [address] Performing Lab: [facility] [address] [place] [facility] COMPREHE NSIVE METABOLI C PANEL+MG POTASSIUM [MOLES/VOL UME] IN SERUM OR PLASMA 3.9 mmol/L 3.5 - 5.1 10/08 Specimen Type: PLASMA No comment entered. Ordering Provider: ANKUSH BOWMAN Report Released Date/Time: Sep 24, 2022 01:55 PM Reporting Lab: [facility] [address] Performing Lab: [facility] [address] [place] [facility] COMPREHE NSIVE METABOLI C PANEL+MG CHLORIDE [MOLES/VOL UME] IN SERUM OR PLASMA 101 mmol/L 98 - 107 10/08 Specimen Type: PLASMA No comment entered. Ordering Provider: ANKUSH BOWMAN Report Released Date/Time: Sep 24, 2022 01:55 PM Reporting Lab: [facility] [address] Performing Lab: [facility] [address] [place] [facility] COMPREHE NSIVE METABOLI C PANEL+MG CARBON DIOXIDE, TOTAL [MOLES/VOL UME] IN SERUM OR PLASMA 28 mmol/L 22 - 29 10/08 Specimen Type: PLASMA No comment entered. Ordering Provider: ANKUSH BOWMAN Report Released Date/Time: Sep 24, 2022 01:55 PM Reporting Lab: [facility] [address] Performing Lab: [facility] [address] [place] [facility] COMPREHE NSIVE METABOLI C PANEL+MG CALCIUM [MASS/VOLU ME] IN SERUM OR PLASMA 9.7 mg/dL 8.4 - 10.2 10/08 Specimen Type: PLASMA No comment entered. Ordering Provider: ANKUSH BOWMAN Report Released Date/Time: Sep 24, 2022 01:55 PM Reporting Lab: [facility] [address] Performing Lab: [facility] [address] [place] [facility] COMPREHE NSIVE METABOLI C PANEL+MG PROTEIN [MASS/VOLU ME] IN SERUM OR PLASMA 7.6 g/dL 6.0 - 8.3 10/08 Specimen Type: PLASMA No comment entered. Ordering Provider: ANKUSH BOWMAN Report Released Date/Time: Sep 24, 2022 01:55 PM Reporting Lab: [facility] [address] Performing Lab: [facility] [address] [place] [facility] COMPREHE NSIVE METABOLI C PANEL+MG ALBUMIN [MASS/VOLU ME] IN SERUM OR PLASMA 4.2 g/dL 3.5 - 5.2 10/08 Specimen Type: PLASMA No comment entered. Ordering Provider: ANKUSH BOWMAN Report Released Date/Time: Sep 24, 2022 01:55 PM Reporting Lab: [facility] [address] Performing Lab: [facility] [address] [place] [facility] COMPREHE NSIVE METABOLI C PANEL+MG BILIRUBIN. TOTAL [MASS/VOLU ME] IN SERUM OR PLASMA 0.6 mg/dL 0.2 - 1.2 10/08 Specimen Type: PLASMA No comment entered. Ordering Provider: ANKUSH BOWMAN Report Released Date/Time: Sep 24, 2022 01:55 PM Reporting Lab: [facility] [address] Performing Lab: [facility] [address] [facility] COMPREHE NSIVE METABOLI C PANEL+MG MAGNESIUM [MASS/VOLU ME] IN SERUM OR PLASMA 2.1 mg/dL 1.6 - 2.6 10/08 Specimen Type: PLASMA No comment entered. Ordering Provider: ANKUSH BOWMAN Report Released Date/Time: Sep 24, 2022 01:55 PM Reporting Lab: [facility] [address] Performing Lab: [facility] [address] [facility] COMPREHE NSIVE METABOLI C PANEL+MG ANION GAP IN SERUM OR PLASMA 9 mmol/L 5 - 15 10/08 Specimen Type: PLASMA No comment entered. Ordering Provider: ANKUSH BOWMAN Report Released Date/Time: Sep 24, 2022 01:55 PM Reporting Lab: [facility] [address] Performing Lab: [facility] [address] [facility] COMPREHE NSIVE METABOLI C PANEL+MG ALKALINE PHOSPHATAS E [ENZYMATIC ACTIVITY/V OLUME] IN SERUM OR PLASMA 96 U/L 40 - 150 10/08 Specimen Type: PLASMA No comment entered. Ordering Provider: ANKUSH BOWMAN Report Released Date/Time: Sep 24, 2022 01:55 PM Reporting Lab: [facility] [address] Performing Lab: [facility] [address] [place] [facility] COMPREHE NSIVE METABOLI C PANEL+MG ALANINE AMINOTRANS FERASE [ENZYMATIC ACTIVITY/V OLUME] IN SERUM OR PLASMA 29 U/L <55 - 55 10/08 Specimen Type: PLASMA No comment entered. Ordering Provider: ANKUSH BOWMAN Report Released Date/Time: Sep 24, 2022 01:55 PM Reporting Lab: [facility] [address] Performing Lab: [facility] [address] [place] [facility] COMPREHE NSIVE METABOLI C PANEL+MG ASPARTATE AMINOTRANS FERASE [ENZYMATIC ACTIVITY/V OLUME] IN SERUM OR PLASMA 22 U/L <34 - 34 10/08 Specimen Type: PLASMA No comment entered. Ordering Provider: ANKUSH BOWMAN Report Released Date/Time: Sep 24, 2022 01:55 PM Reporting Lab: [facility] [address] Performing Lab: [facility] [address] [place] [facility] COMPREHE NSIVE METABOLI C PANEL+MG GLOMERULAR FILTRATION RATE/1.73 SQ M.PREDICTE D [VOLUME RATE/AREA] IN SERUM, PLASMA OR BLOOD BY CREATININE -BASED FORMULA (CKD-EPI) >90 60 10/08 Specimen Type: PLASMA No comment entered. Ordering Provider: ANKUSH BOWMAN Report Released Date/Time: Sep 24, 2022 01:55 PM Reporting Lab: [facility] [address] Performing Lab: [facility] [address] [place] [facility] CYSTATIN C WITH EGFR CYSTATIN C [MASS/VOLU ME] IN SERUM OR PLASMA 1.38 mg/L 0.51 - 1.05 10/08 H Specimen Type: PLASMA No comment entered. Ordering Provider: ANKUSH BOWMAN Report Released Date/Time: Sep 24, 2022 01:55 PM Reporting Lab: [facility] [address] Performing Lab: [facility] [address] [place] [facility] CYSTATIN C WITH EGFR CYSTATIN C AND GLOMERULAR FILTRATION RATE BY CYSTATIN-B ASED FORMULA PANEL - SERUM OR PLASMA 48 60 10/08 L Specimen Type: PLASMA No comment entered. Ordering Provider: ANKUSH BOWMAN Report Released Date/Time: Sep 24, 2022 01:55 PM Reporting Lab: [facility] [address] Performing Lab: [facility] [address] [place] [facility] VIT D 25-OH,TO ZAMZAM 25-HYDROXY VITAMIN D3 [MASS/VOLU ME] IN SERUM OR PLASMA 54 ng/mL 12 - 50 10/08 H Specimen Type: SERUM No comment entered. Ordering Provider: ANKUSH BOWMAN Report Released Date/Time: Sep 24, 2022 01:55 PM Reporting Lab: [facility] [address] Performing Lab: [facility] [address] [facility] Encounters Combined list of: 1) Encounters from Department of Veterans Affairs facilities going back up to thelast 18 months. 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 Location Location Details Encounter Type Encounter Number Reason For Visit Attending Provider ADM Date DC Date Status Disposition Source [facility] DIABETIC MANAGEMENT PROGRAM, [id number] Diagnos is: ICD-10- CM G82.20 Paraple mary kay, unspeci fied
TIGIST BASSETT 01/30 [facility] Outpatient Encounter [id number] 02/05 [facility] MTMS BY PHARM ADDL 15 MIN [id number] Diagnos is: ICD-10- CM G82.20 Paraple mary kay, unspeci fied
MANPREET BARRETT 02/05 [facility] OT EVAL LOW COMPLEX 30 MIN [id number] Diagnos is: ICD-10- CM Z73.6 Limitat ion of activit ies due to disabil ity<br/ > Bryn PARDO 02/05 [facility] OFF/OP EST MARCH X REQ PHY/QHP [id number] Diagnos is: ICD-10- CM G82.20 Paraple mary kay, unspeci fied
ASHAARIAMARISOLJagdish Miranda 02/05 [facility] PSYCH DIAGNOSTIC EVALUATION [id number] Diagnos is: ICD-10- CM F32.A Depress ion, unspeci fied
BINU GAMEZ 02/05 [facility] OFFICE O/P EST MOD 30-39 MIN [id number] Diagnos is: ICD-10- CM G82.20 Paraple mary kay, unspeci fied
ME LOGAN BOWMAN 02/05 [facility] PSYCH DIAGNOSTIC EVALUATION [id number] Diagnos is: ICD-10- CM G82.20 Paraple mary kay, unspeci fied
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
VIOLA YOON 02/08 [facility] OFFICE O/P EST HI 40-54 MIN [id number] Diagnos is: ICD-10- CM G82.20 Paraple mary kay, unspeci fied
ME LOGAN BOWMAN 02/13 [facility] WHEELCHAIR MNGMENT TRAINING [id number] Diagnos is: ICD-10- CM Z73.6 Limitat ion of activit ies due to disabil ity<br/ > BOUSLOG,RY AN P 02/13 [place] [facility] [place] [facility] Outpatient Encounter [id number] 02/19 [facility] [place] [facility] HC PRO PHONE CALL 11-20 MIN [id number] Diagnos is: ICD-10- CM Z73.6 Limitat ion of activit ies due to disabil ity<br/ > BOUSLOG,RY AN P 04/23 [facility] [place] [facility] Outpatient Encounter [id number] 04/24 [facility] [place] [facility] Outpatient Encounter [id number] 05/24 [facility] [place] [facility] OFF/OP EST MARCH X REQ PHY/QHP [id number] Diagnos is: ICD-10- CM G82.20 Paraple mary kay, unspeci fied
VIOLA YOON NDJagdish 05/28 [facility] [place] [facility] WHEELCHAIR MNGMENT TRAINING [id number] Diagnos is: ICD-10- CM Z73.6 Limitat ion of activit ies due to disabil ity<br/ > BOUSLOG,RY AN P 06/10 [facility] [place] [facility] Outpatient Encounter [id number] 10/28 [facility] [place] [facility] Outpatient Encounter [id number] 11/20 [place] [place] [facility] Outpatient Encounter [id number] 05/12 [place] [place] [facility] Outpatient Encounter [id number] 07/23 [facility] [place] [facility] Outpatient Encounter [id number] DEE ANDERSI 07/28 [facility] Social History Combined list of available smoking, tobacco, and other social history from 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 Social History Type Response Date Comment Sour e Tobacco smoking status [facility] NEVER USED 05/28/20 [facility]REV[facility] This section is an empty social history section. [facility] Advance Directives List of completed, amended, or rescinded Advance Directives on record at Department of 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 An actual copy of the Directive is not included. Date Advance Directive Provider Source 02/05/2023 ADVANCE DIRECTIVE DISCUSSION [facility]
--- OUTSIDE RECORDS SUMMARY | 2024-08-03 12:46 | XMS_ITS | Encounter Summary ---
Author Name [facility] [place] Organization [facility] [place] Address [address] [place] [address] Care Team Providers [facility] Wellness Coordinator Name Role Phone SHANTAL HANSON Primary [...] PART B Jul 12, 2004 PART B [id number] [phone] MIKAYLA,F RED PATIENT MEDICARE (WNR) MEDICARE (M) PART A Oct 11, 2002 PART A [id number] [phone] Kasie CULLEN RED PATIENT Selected Encounter This section includes the information on record at [place] for the Encounter. Date/Time Encounter Type Encounter Description Reason Provider Source Jul 28, 2024 09:08 AM Outpatient Encounter COMMUNITY CARE CONSULT JOSE ANDERS Encounter Template Text not used by [facility] Advance Directives: All historical and current Section Date Range: From patient's date of to the date document was created. This section includes ALL of a patient's completed or amended [place] Advance and Rescinded Directives. The entries below indicate that a directive exists for the patient, but an actual copy is not included with this document. The data comes from all [place] facilities. Date Advance Directives Provider Source Feb 05, 2023 ADVANCE DIRECTIVE DISCUSSION [facility] Encounter Notes: All associated encounter notes This section contains the clinical notes associated to the Encounter. Date/Time Encounter Note(s) Provider Source Jul 28, 2024 09:08 AM GERIATRIC MEDICINE NOTE: LOCAL TITLE: PERSONAL CARE SERVICES CASE MIX TOOL STANDARD TITLE: GERIATRIC MEDICINE NOTE DATE OF NOTE: JUL 28, 2024@09:08:40 ENTRY DATE: JUL 28, 2024@09:08:40 AUTHOR: JOSE ANDERS EXP COSIGNER: URGENCY: STATUS: COMPLETED PERSONAL CARE SERVICES CASE MIX TOOL Has ADDENDA HCBS Case Mix & Budget Tool (CASE MIX) Date Given: 07/23/2024 Clinician: Jose Anders Location: [facility] Completed with over the phone : Carl Cullen SSN: [id number] : [birth year] ([birth year]) Gender: Male Type of Evaluation: Annual Anticipated Start Date: 07/28/2024 Anticipated Length of Service: 6 months Case Mix Level: G ADL Category: High Questions and Answers: Q1. DRESSING *3 Cannot dress yourself and somebody dresses you. Q2. GROOMING 1 Need and get supervision or reminding or grooming activities. Q3. BATHING *5 Cannot bathe or shower, need complete help. Q4. EATING *2 Need and get help in cutting food, buttering bread or arranging food. Q5. BED MOBILITY *3 Always need and get help to be turned or change positions. Q6. TRANSFERRING *3 Need two other people or a mechanical aid to help you. Q7. WALKING *4 Cannot walk at all. Q8. BEHAVIOR 0 Behavior requires no intervention. Q9. COMMUNICATION 0 Understood. Q10. TOILETING *7 Are enrolled in [place] Bowel and Bladder Program. Q11. MDS HC 2.0/CPS Cognitive Skill for Daily Decision Making 1 Modified [place] - some difficulty in new situations only. Q12. MDS 2.0/CPS: Short Term Memory (recall of what was learned or known) 1 Memory problem Q13. SPECIAL TREATMENTS 2 One or more [place] such as: 10. Skin Care, 3. Drainage Tubes, 8. Ostomies & Catheters Q14. CLINICAL MONITORING 0 Less than once a day Q15. SPECIAL NURSING No Q16. NEUROMUSCULAR DIAGNOSIS Yes COMMENTS 79 yr old hx of paraplegia, DM, dementia, needing assist with ADLs and iALDs SOURCES 1. Person, 2. Informant, 3. Medical Record /el/ Jose Anders RN Community Payment Processor Signed: 07/28/2024 09:14 07/28/2024 ADDENDUM STATUS: COMPLETED /caregiver educated on Personal Care Services (PCS) available: Yes PCS requested by /caregiver: Home Health Aide (STATOR WINDER) Are first range hours adequate for this ?: [X] Yes. [] No. Second range [facility] Distribution of hours (can copy/paste from [facility] [place] referral/s): Home Health Aide approved: (hours and frequency): [9] hours/week Vendor has been educated on requested services and hours allotted. /el/ Jose Anders RN Community Payment Processor Signed: 07/28/2024 09:14 JOSE ANDERS [facility]
--- OUTSIDE RECORDS SUMMARY | 2024-08-03 12:46 | XMS_ITS | Clinical Summary ---
Author Organization [facility] Address [place], [place] [address] Care Team Providers Care Microbiology Lab Technician Name Role Phone Zelalem Cohen MD Unavailable [phone] May Randle) Unavailable Franklin Squires MD Primary Care Provider Fred Craft Unavailable [phone] Diane Charles MD Unavailable [phone] Julia Ware RN Unavailable Allergies Active [...] bedIndications:Non-heal ing surgical wound, subsequent encounter Drive Cellvine 8 inch low loss mattress and 1/2 rails. Semi-electric bed. Length of need 6 weeks. Bed tax collector:no 1 unit 018 Active acetaminophen (TYLENOL EXTRA STRGTH) 500 mg tabletIndications:fever ,pain Take 1,000 mg by mouth three times daily. Max acetaminophen dose: 4000mg in 24 hrs. Active sodium chloride (AYR SALINE NASL) Inhale 2-3 Sprays in the nostril(s) once daily if needed. 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 [employer] [place] Click Ostomy Barrier with belt tabs 60mm, Cut-to-Fit 01/16 - 2 11/18. Item #[id number]. 1 Each 11 021 Active ascorbic acid, [...] TO WOUND BED 473 mL 024 Active Catheter (De La Cruz Catheter) [...] the morning. 90 Tablet 2 024 Active LORazepam (ATIVAN) 0.5 mg tabIndications:Parapleg [...] TWICE A DAY 180 Tablet 024 Active oxyCODONE 10 mg tabletIndications:Chron ic pain syndrome TAKE ONE TABLET BY MOUTH EVERY 6 HOURS 120 Tablet 024 Active warfarin (COUMADIN) 7.5 [...] 2-3,SDH (subdural hematoma) (HC) Not currently using this tablet size Active buPROPion (WELLBUTRIN SR) 150 mg Sustained-Release tabletIndications:Depre ssive disorder TAKE 1 TABLET TWICE A DAY 180 Tablet 1 024 2023 Discontinued donepeziL (ARICEPT) 5 mg tabletIndications:Millicent hart TAKE 1 TABLET AT BEDTIME 90 Tablet 2023 Discontinued warfarin (COUMADIN) 5 mg tabletIndications: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 Bright PM&R: Dr. May Randle Pain Management: Dr. 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) use of anticoagulants 02/19/2007 09/27/2008 Depressive disorder, not elsewhere classified 02/14/20 07 01/15/2018 Abnormality of gait 12/24/2006 09/27/20 08 Urinary tract infection, site not specified 12/24/2006 01/15/2018 BENIGN ESSENTIAL HYPERTENSION 12/24/2006 04/17/2016 Overview (12/24/2006): borderline Necrotizing fasciitis 2018 Type 2 diabetes mellitus Encounters Date Type Department Care Team Description 07/31/2024 Anticoagulation (warfarin) [facility] [address] [place] [address] 1, [facility] Anticoagulation (Acelis) 07/30/2024 11:25 AM CDT - 07/30/2024 11:59 PM CDT Hospital Encounter [facility] [address] [place] [address] Wound infection (Primary Dx) 07/30/2024 Hospital/[facility] Telepho ne Encounter [facility] [address] [place] [address] Yen Hernandez RN Pre Procedure (PVP) 07/29/2024 1:30 PM CDT Nurse/Clinic Staff Only [facility] [address] [place] [address] Nurse/Clinic Staff Only (Suprapubic Cath) 07/29/[address] [place] [address] Franklin Squires MD Refill Request (Oxycodone) 07/29/2024 Travel 07/27/2024 Anticoagulation (warfarin) [address] [place] [address] 1, [facility] Anticoagulation (Acelis) 07/24/[address] [address] Franklin Squires MD Anticoagulation (new med) 07/23/2024 8:46 AM CDT - 07/23/2024 2:33 PM CDT Hospital Encounter [facility] [address] [place] [address] Yudith Mcgraw, METALIZING MACHINE OPERATOR AUTOMATIC Wound infection (Primary Dx) Discharge Disposition: Home Health 07/23/2024 Orders Only [facility] [address] [place] [address] Yudith Mcgraw, METALIZING MACHINE OPERATOR AUTOMATIC 1 scan: INFUSION CEFEPIME 2 MG 07/23/2024 Travel 07/22/2024 Telephone [facility] [place] [facility] [address] [place] [address] Yen Hernandez, RN Appointment 07/22/2024 Telephone [facility] [address] [place] [address] Jennyfer Penny RN 07/15/2024 Telephone [facility] [address] [place] [phone] Franklin Squires MD Anticoagulation (Order renewal) 07/15/2024 Anticoagulation (warfarin) [address] [phone] [place] [address] Inr Clinic [facility] Anticoagulation (Acelis ) 07/14/2024 Telephone [facility] [address] [place] [address] Franklin Squires MD Form (Case Communication- Major drug interactions-( Warfarin) - Home Health Certification and Plan of Care - 07/08/2024-09/05/2024) 07/14/[address] [phone] Franklin Squires MD Refill Request (Bupropion) 07/09/2024 Orders Only [facility] Scanner 1 scan: (1-Ord) [facility] PELVIS W CON, 07/09/2024 07/08/2024 1:30 PM CDT Nurse/Clinic Staff Only [address] [address] Nurse/Clinic Staff Only (Cath Change ) 07/08/2024 Travel 07/07/[address] [phone] Franklin Squires MD Refill Request (Donepezil) 07/02/2024 1:30 PM CDT Office Visit [address] [place] [address] Franklin Squires MD Medication Management 07/02/2024 Travel 07/01/2024 Anticoagulation (warfarin) [address] [place] [address] 1, [facility] Anticoagulation (Acelis) 06/17/2024 Anticoagulation (warfarin) [address] [place] [address] 1, [facility] Anticoagulation (acelis) 06/11/[address] [place] [address] Franklin Squires MD Refill Request (Warfarin) 06/03/2024 Anticoagulation (warfarin) [address] [place] [address] 1, [facility] Anticoagulation (Acelis) 06/02/[address] [place] [address] Franklin Squires MD Refill Request (Oxycodone) 05/20/2024 Anticoagulation (warfarin) [address] [place] [address] 1, [facility] Anticoagulation (Acelis) 05/14/[address] [place] [address] Franklin Squires MD Refill Request (Baclofen) 05/14/[address] [place] [address] Franklin Squires MD Refill Request (Warfarin) 05/13/2024 Anticoagulation (warfarin) [address] [place] [address] 1, [facility] Anticoagulation (Acelis) 05/11/[address] [place] [address] Franklin Squires MD Form (Physician Orders and Home Health Certification and Plan of Care.) 05/06/2024 Anticoagulation (warfarin) [address] [place] [address] 1, [facility] Anticoagulation (Acelis) 05/05/[address] [place] [address] Franklin Squires MD Form (60 Day Summary Report) 05/05/[address] [place] [address] Franklin Squires MD Refill Request (Warfarin) 05/04/[address] [place] [address] Franklin Squires MD Form 05/04/[address] [place] [address] Franklin Squires MD Refill Request (Oxycodone) from Last 3 Months Immunizations Name Administration Dates Next Due COVID-19 vaccine (Fastr NTTamr 30mcg/0.3mL) 12YO+ BIVALENT PF, MDV 10/22/2022 COVID-19 vaccine (Fastr NTech 30mcg/0.3mL) PF, MDV 01/25/2021,01/02/2021 Influenza A [...] Care Team (Late st Contact Info) Description 08/19/2024 2:00 PM CDT Nurse/Clinic Staff Only [address] [address] Health Maintenance Due Date Last [...] Associated Diagnosis Comments HOME MONITOR AC Routine 07/31/2024 12:00 AM CDT HOME MONITOR AC Routine 07/27/2024 12:00 AM CDT BASIC METABOLIC PANEL Today 07/23/2024 11:01 AM [...] MONITOR AC Routine 05/06/2024 12:00 AM CDT from Last 3 Months Results * (ABNORMAL) HOME MONITOR AC (07/31/2024 12:00 AM CDT) Only the most recent of9 resultswithin the time period is included. PATIENT REPORTED HOME INR 1.7(L) 2.00 - 3.00 ALERE HOME MONITORING 07/31/2024 Franklin Squires MD OTHER ALERE HOME MONITORING [address] [place] [address] * (ABNORMAL) BASIC METABOLIC PANEL (07/23/2024 11:01 AM CDT) Only the most recent of2 resultswithin the time period is included. SODIUM 139 136 - 145 mmol/L 07/23/2024 11:26 AM T [facility] POTASSIUM 4.0 3.5 - 5.1 mmol/L 07/23/2024 11:26 AM [facility] CHLORIDE 102 98 - 107 mmol/L 07/23/2024 11:26 AM T [facility] CO2,TOTAL 30(H) 22 - 29 mmol/L 07/23/2024 11:26 AM [facility] ANION GAP 7 5 - 18 07/23/2024 11:26 AM T [facility] GLUCOSE 153(H) 70 - 99 mg/dL 07/23/2024 11:26 AM T [facility] CALCIUM 9.3 8.8 - 10.2 mg/dL 07/23/2024 11:26 AM [facility] BUN 17 8 - 23 mg/dL 07/23/2024 11:26 AM [facility] CREATININE 0.61(L) 0.70 - 1.20 mg/dL 07/23/2024 11:26 AM [facility] BUN/CREAT RATIO 28(H) 10 - 20 11:26 AM [facility] eGFR >90 >90 mL/min/1.7 3m2 07/23/2024 11:26 AM [facility] Comment:As of 2022, eG FR is calculated by the CKD-EPI creatinine equation without race adjustment. ??eGFR can be influenced by muscle mass, exercise, and diet. ??The reported eGFR is an estimation only and is only applicable if the renal function is stable. Blood BLOOD SPECIMEN / Unknown Line/Port / Unknown 07/23/2024 11:01 AM CDT 07/23/2024 11:04 AM CDT Toni Cooley RN CHEMISTRY [facility] [address] [place] [address] * (ABNORMAL) CBC WITH AUTO DIFFERENTIAL (07/23/2024 10:59 AM CDT) WHITE BLOOD COUNT 7.1 4.5 - 11.0 thou/cu mm 07/23/2024 2:34 PM T [facility] RED BLOOD COUNT 4.34 4.30 - 5.90 mil/cu mm 07/23/2024 2:34 PM [facility] HEMOGLOBIN 13.1(L) 13.5 - 17.5 g/dL 07/23/2024 2:34 PM T [facility] HEMATOCRIT 39.9 37.0 - 53.0 % 07/23/2024 2:34 PM [facility] MCV 92 80 - 100 fL 07/23/2024 2:34 PM [facility] MCH 30.2 26.0 - 34.0 pg 07/23/2024 2:34 PM [facility] MCHC 32.8 32.0 - 36.0 g/dL 07/23/2024 2:34 PM [facility] RDW 16.9(H) 11.5 - 15.5 % 07/23/2024 2:34 PM [facility] PLATELET COUNT 142 140 - 440 thou/cu mm 07/23/2024 2:34 PM [facility] MPV 11.2(H) 6.5 - 11.0 fL 07/23/2024 2:34 PM [facility] % NEUT 59.9 % 07/23/2024 2:34 PM [facility] % LYMPH 28.8 % 07/23/2024 2:34 PM [facility] % MONO 9.5 % 07/23/2024 2:34 PM [facility] % EOS 1.7 % 07/23/2024 2:34 PM [facility] % BASO 0.1 % 07/23/2024 2:34 PM [facility] ABSOLUTE NEUTROPHILS 4.2 1.7 - 7.0 thou/cu mm 07/23/2024 2:34 PM [facility] ABSOLUTE LYMPHOCYTES 2.0 0.9 - 2.9 thou/cu mm 07/23/2024 2:34 PM [facility] ABSOLUTE MONOCYTES 0.7 <0.9 thou/cu mm 07/23/2024 2:34 PM [facility] ABSOLUTE EOSINOPHILS 0.1 <0.5 thou/cu mm 07/23/2024 2:34 PM [facility] ABSOLUTE BASOPHILS 0.0 <0.3 thou/cu mm 07/23/2024 2:34 PM [facility] Blood BLOOD SPECIMEN / Unknown Extra Tube / Unknown 07/23/2024 10:59 AM CDT 07/23/2024 11:06 AM CDT Bal Gillette DO HEMATOLOGY Performing Organization Address City/[facility]/ZIP Co de Phone Number [facility] [address] [place] [address] * EXTRA TUBE LAVENDER (07/23/2024 10:59 AM CDT) Blood BLOOD SPECIMEN / Unknown Extra Tube / Unknown 07/23/2024 10:59 AM CDT 07/23/2024 11:06 AM CDT Doctor Unknown LABORATORY Performing Organization Address [facility]/ZIP Co de Phone Number [facility] [address] [place] [address] * EXTRA TUBE BLUE (07/23/2024 10:59 AM CDT) Blood BLOOD SPECIMEN / Unknown Extra Tube / Unknown 07/23/2024 10:59 AM CDT 07/23/2024 11:06 AM CDT Doctor Unknown LABORATORY Performing Organization Address City/[facility]/ZIP Co de Phone Number [facility] [address] [place] [address] * XR CHEST 1 VIEW PORTABLE (07/23/2024 [...] Other Clinical Staff OTHER * SCAN-CT INTERPRETATION (07/09/2024 12:00 AM CDT) Anatomical Region Laterality Modality Other Scanner OTHER * LIPID PANEL W REFLEX MEASURED LDL (07/02/2024 2:14 PM CDT) CHOLESTEROL,TOTAL 122 100 - 199 mg/dL 07/02/2024 3:04 PM CDT [facility] Comment: Cholesterol, Total Reference Ranges Desirable <200 mg/dL Borderline 200-239 mg/dL High >=240 mg/dL TRIGLYCERIDES 58 <150 mg/dL 07/02/2024 3:04 PM T [facility] HDL CHOLESTEROL 56 >40 mg/dL 3:04 PM [facility] NON-HDL CHOLESTEROL 66 <145 mg/dl 07/02/2024 3:04 PM [facility] CHOL/HDL RATIO 2.18 <4.50 07/02/2024 3:04 PM [facility] LDL CHOLESTEROL 54 <=130 mg/dL 07/02/2024 3:04 PM [facility] VLDL CHOLESTEROL 12 <=30 mg/dL 07/02/2024 3:04 PM [facility] PROVIDER ORDERED STATUS RANDOM 07/02/2024 3:04 PM [facility] Blood BLOOD SPECIMEN / Unknown Venipuncture / Unknown 07/02/2024 2:14 PM CDT 07/02/2024 2:14 PM CDT Franklin Squires MD CHEMISTRY [facility] [address] [place] [id number] * (ABNORMAL) CBC W PLT NO DIFF (07/02/2024 2:14 PM CDT) WHITE BLOOD COUNT 8.5 4.5 - 11.0 thou/cu mm 07/02/2024 2:58 PM [facility] RED BLOOD COUNT 4.75 4.30 - 5.90 mil/cu mm 07/02/2024 2:58 PM [facility] HEMOGLOBIN 14.1 13.5 - 17.5 g/dL 07/02/2024 2:58 PM T [facility] HEMATOCRIT 42.2 37.0 - 53.0 % 07/02/2024 2:58 PM [facility] MCV 89 80 - 100 fL 07/02/2024 2:58 PM CDT [facility] MCH 29.7 26.0 - 34.0 pg 07/02/2024 2:58 PM CDT [facility] MCHC 33.4 32.0 - 36.0 g/dL 07/02/2024 2:58 PM CDT [facility] RDW 18.3(H) 11.5 - 15.5 % 07/02/2024 2:58 PM CDT [facility] PLATELET COUNT 159 140 - 440 thou/cu mm 07/02/2024 2:58 PM CDT [facility] MPV 10.7 6.5 - 11.0 fL 07/02/2024 2:58 PM CDT [facility] Blood BLOOD SPECIMEN / Unknown Venipuncture / Unknown 07/02/2024 2:14 PM CDT 07/02/2024 2:14 PM CDT Franklin Squires MD HEMATOLOGY Performing Organization Address City/State/[facility] Co de Phone Number [facility] [address] [place] [address] * HEMOGLOBIN A1C MONITORING (POCT) (07/02/2024 2:14 PM CDT) HEMOGLOBIN A1C MONITORING (POCT) 5.9 <=6.4 % 07/02/2024 2:49 PM CDT [facility] Blood BLOOD SPECIMEN / Unknown Venipuncture / Unknown 07/02/2024 2:14 PM CDT 07/02/2024 2:14 PM CDT Narrative [facility] - 07/02/2024 2:49 PM CDT [...] Anemias, Splenectomy ? Franklin Squires MD CHEMISTRY [facility] [address] [place] [address] from Last 3 Months Additional Health Concerns [...] since positive culture): resides in acute/long term acute care registered nurse care, receiving hemodialysis, has chronic open wounds/skin damage, has long-term percutaneous indwelling medical devices Exclusions for nares collection (if <12 months since positive culture) include all of the previous exclusions plus patients on antibiotics 7 days prior to collection 03/13/2018 03/20/2024 Advance Directives Documents on File Type Date Recorded Patient Rate Clerk Passenger Expl anation Healthcare Directive 05/09/2023 023 Healthcare [...] Code Status Discussion: Reviewed Preferences Care Teams Microbiology Lab Technician Relationship Specialty Start Date End Date Franklin Squires MD [address] [place] [address] PCP - General Family Practice 10/18/15 Zelalem Cohen MD Physical Therapist 03/13/12 May Randle Md, MD Physical Medicine and Rehabilitation 03/13/12 Luana, FAUSTINO Krueger [address] [place] [address] Wood Car Builder 05/03/17 Diane Charles MD [address] [place] [address] Surgery - Urology 01/17/23 Julia Ware, RN [address] [place] [address] Registered Nurse 07/17/23
--- OUTSIDE RECORDS SUMMARY | 2024-08-03 12:47 | XMS_ITS | Encounter Summary ---
Author Organization [facility] [address] [address] Care Team Providers Care Bellows Filler Name Role Phone Franklin Squires MD Primary Care Provider [phone] Encounter Details Date Type Department Care Team (Late st Contact Info) Description 10/26/2013 Correspondence [facility] Physical Therapy [address] [place] [phone] Trudi Raymundo, PT [address] [place] [id number] LETTER OF MEDICAL NECESSITY Social History Tobacco [...] Raymundo, PT - 10/26/2013 12:00 AM CST RONMENTAL INTERN documented in this encounter Plan of Treatment Not on file documented as of this encounter Visit Diagnoses Not on filedocumented in this encounter Care Teams Bellows Filler Relationship Specialty Start Date End Date Franklin Squires MD [address] [facility] [place] [address] PCP - General Family Practice 03/08/16 documented as of this encounter
--- OUTSIDE RECORDS SUMMARY | 2024-08-03 12:47 | XMS_ITS | Encounter Summary ---
Author Organization [facility] Address [address], [place] [address] Care Team Providers Care Flash Developer Name Role Phone Franklin Squires MD Primary Care Provider Encounter Details Date Type Department Care Team (Late st Contact Info) Description 12/16/2013 Correspondence [facility] Radiology [address] [place] [address] Radiology, Provider MRI SAFETY SHEET AND COMPATIBILITY [...] Radiology, Provider - 12/16/2013 12:00 AM CST SCIENCES DIRECTOR documented in this encounter Plan of Treatment Not on file documented as of this encounter Visit Diagnoses Not on filedocumented in this encounter Care Teams Flash Developer Relationship Specialty Start Date End Date Franklin Squires MD [address] [facility] [place] [address] PCP - General Family Practice 03/08/16 documented as of this encounter
--- OUTSIDE RECORDS SUMMARY | 2024-08-03 12:47 | XMS_ITS | Encounter Summary ---
Author Organization [facility] Address [address] [address] Care Team Providers Care Water Proofer Name Role Phone Franklin Squires MD Primary Care Provider Encounter Details Date Type Department Care Team (Late st Contact Info) Description 11/23/2015 Correspondence External to External, [place] [address] LETTER [facility] Social [...] filedocumented in this encounter Care Teams Water Proofer Relationship Specialty Start Date End Date Franklin Squires MD [address] [place] [address] [place] [address] PCP - General Family Practice 03/08/16 documented as of this encounter
--- OUTSIDE RECORDS SUMMARY | 2024-08-03 12:47 | XMS_ITS | Encounter Summary ---
Author Organization [facility] Address [address] [address] Care Team Providers Care Drier Name Role Phone Franklin Squires MD Primary Care Provider [phone] Encounter Details Date Type Department Care Team (Late st Contact Info) Description 08/22/2014 Outside Hospital External to [facility] SUMMARY Social History Tobacco Use Types [...] on filedocumented in this encounter Care Teams Drier Relationship Specialty Start Date End Date Franklin Squires MD 100 [facility] [address] PCP - General Family Practice 03/08/16 documented as of this encounter
--- OUTSIDE RECORDS SUMMARY | 2024-08-03 12:47 | XMS_ITS | Encounter Summary ---
Author Organization [facility] Address [address], [place] [address] Care Team Providers Care Credit Control Clerk Name Role Phone Franklin Squires MD Primary Care Provider Encounter Details Date Type Department Care Team (Late st Contact Info) Description 11/13/2012 Correspondence [facility] Radiology [address] [place] [address] Radiology, Provider MRI SAFETY SHEET AND COMPATIBILITY [...] RADIOLOGY, PROVIDER - 11/13/2012 12:00 AM CST R ANALYST documented in this encounter Plan of Treatment Not on file documented as of this encounter Visit Diagnoses Not on filedocumented in this encounter Care Teams Credit Control Clerk Relationship Specialty Start Date End Date Franklin Squires MD 100 [facility] [place] [address] PCP - General Family Practice 03/08/16 documented as of this encounter
--- OUTSIDE RECORDS SUMMARY | 2024-08-03 12:47 | XMS_ITS | Encounter Summary ---
Author Organization [facility] Address [address] [address] Care Team Providers Care Baby Registry Sales Consultant Name Role Phone Franklin Squires MD Primary Care Provider [phone] Encounter Details Date Type Department Care Team (Late st Contact Info) Description 12/14/2014 Correspondence [facility] 401 Physical Medicine 401 [facility] [place] [address] May Randle MD [address] [place] [address] DETAILED PRODUCT DESCRIPTION Social History Tobacco Use [...] on filedocumented in this encounter Care Teams Baby Registry Sales Consultant Relationship Specialty Start Date End Date Franklin Squires MD 100 [facility] [place] [address] PCP - General Family Practice 03/08/16 documented as of this encounter
--- OUTSIDE RECORDS SUMMARY | 2024-08-03 12:47 | XMS_ITS | Encounter Summary ---
Author Organization [facility] Address [address], [place] [address] Care Team Providers Care Powerhouse Mechanic Apprentice Name Role Phone Franklin Squires MD Primary Care Provider [phone] Encounter Details Date Type Department Care Team [...] on filedocumented in this encounter Care Teams Powerhouse Mechanic Apprentice Relationship Specialty Start Date End Date Franklin Squires MD 100 [facility] [address] PCP - General Family Practice 03/08/16 documented as of this encounter
--- OUTSIDE RECORDS SUMMARY | 2024-08-03 12:47 | XMS_ITS | Encounter Summary ---
Author Organization [facility] Address [address] [address] Care Team Providers Care Packaging Machine Operator Name Role Phone Franklin Squires MD Primary Care Provider [phone] Encounter Details Date Type Department Care Team (Late st Contact Info) Description 04/20/[address] [address] Radiology, Provider MRI SAFETY SHEET AND COMPATIBILITY [...] filedocumented in this encounter Care Teams Packaging Machine Operator Relationship Specialty Start Date End Date Franklin Squires MD 100 [facility] [place] [address] PCP - General Family Practice 03/08/16 documented as of this encounter
--- OUTSIDE RECORDS SUMMARY | 2024-08-03 12:47 | XMS_ITS | Encounter Summary ---
Author Organization [facility] Address [address] [address] Care Team Providers Care Justice Court Deputy Clerk Name Role Phone Franklin Squires MD Primary Care Provider [phone] Encounter Details Date Type Department Care Team [...] on filedocumented in this encounter Care Teams Justice Court Deputy Clerk Relationship Specialty Start Date End Date Franklin Squires MD 100 [facility] [place] [address] PCP - General Family Practice 03/08/16 documented as of this encounter
--- OUTSIDE RECORDS SUMMARY | 2024-08-03 12:47 | XMS_ITS | Encounter Summary ---
Author Organization [facility] Address [address] [address] Care Team Providers Care Metal Stamping Machine Operator Name Role Phone Franklin Squires MD Primary Care Provider [phone] Encounter Details Date Type Department Care Team (Late st Contact Info) Description 09/17/2013 Correspondence External to External, [place] [address] EMPOWERMENT RULES Social History Tobacco Use Types [...] External, Provider - 09/17/2013 12:00 AM CST UCTION PROOFREADER documented in this encounter Plan of Treatment Not on file documented as of this encounter Visit Diagnoses Not on filedocumented in this encounter Care Teams Metal Stamping Machine Operator Relationship Specialty Start Date End Date Franklin Squires MD [address] [place] [address] [place] [address] PCP - General Family Practice 03/08/16 documented as of this encounter
--- OUTSIDE RECORDS SUMMARY | 2024-08-03 12:47 | XMS_ITS | Encounter Summary ---
Author Organization [facility] Address [address], [place] [address] Care Team Providers Care Security Researcher Name Role Phone Franklin Squires MD Primary [...] on filedocumented in this encounter Care Teams Security Researcher Relationship Specialty Start Date End Date Franklin Squires MD 100 [facility] [address] PCP - General Family Practice 03/08/16 documented as of this encounter
--- OUTSIDE RECORDS SUMMARY | 2024-08-03 12:47 | XMS_ITS | Encounter Summary ---
Author Organization [facility] Address [address] [address] Care Team Providers Care Clinical Program Coordinator Name Role Phone Franklin Squires MD Primary Care Provider Encounter Details Date Type Department Care Team (Latest Contact Info) Description 06/04/2014 Correspondence [facility] 401 Interventional Pain Management 401 [facility] [place] [address] Zelalem Cohen, DO [address] [place] [address] MEDICAID PT INFORMATION EMPI RECOVERY Social History [...] filedocumented in this encounter Care Teams Clinical Program Coordinator Relationship Specialty Start Date End Date Franklin Squires MD 100 [facility] [address] PCP - General Family Practice 03/08/16 documented as of this encounter
--- OUTSIDE RECORDS SUMMARY | 2024-08-03 12:47 | XMS_ITS | Encounter Summary ---
Author Organization [facility] Address [address] [address] Care Team Providers Care Reimbursement Specialist Name Role Phone Fraknlin Squires MD Primary Care Provider Encounter Details Date Type Department Care Team (Late st Contact Info) Description 05/04/2014 Correspondence [facility] 401 Physical Medicine 401 [facility] [place] [address] May Randle MD [address] [place] [address] LETTER OF MEDICAL NECESSITY FOR A WHEELCHAIR [...] filedocumented in this encounter Care Teams Reimbursement Specialist Relationship Specialty Start Date End Date Franklin Squires MD 100 [facility] [place] [address] PCP - General Family Practice 03/08/16 documented as of this encounter
--- OUTSIDE RECORDS SUMMARY | 2024-08-03 12:47 | XMS_ITS | Encounter Summary ---
[facility] Address [address], [place] [address] Care Team Providers Care Crimp Setter Name Role Phone Franlkin Squires MD Primary Care Provider Encounter Details Date Type Department Care Team (Late st Contact Info) Description 07/28/2014 Outside Hospital External to External, Provider No address [address] ER VISIT/TRANSFER Social History Tobacco Use [...] on filedocumented in this encounter Care Teams Crimp Setter Relationship Specialty Start Date End Date Franklin Squires MD 100 [facility] [place] [address] PCP - General Family Practice 03/08/16 documented as of this encounter
--- OUTSIDE RECORDS SUMMARY | 2024-08-03 12:47 | XMS_ITS | Encounter Summary ---
Author Organization [facility] [address] [address] Care Team Providers Care Acoustic Warfare Analyst Name Role Phone Franklin Squires MD Primary Care Provider [phone] Encounter Details Date Type Department Care Team (Late st Contact Info) Description 07/08/2015 Correspondence [facility] [place] Physical Therapy [address] [place] [address] Trudi Raymundo, PT [address] [place] [address] ADDENDUM FOR LETTER OF MEDICAL NECESSITY Social [...] on filedocumented in this encounter Care Teams Acoustic Warfare Analyst Relationship Specialty Start Date End Date Franklin Squires MD 100 [facility] [place] [address] PCP - General Family Practice 03/08/16 documented as of this encounter
--- OUTSIDE RECORDS SUMMARY | 2024-08-03 12:47 | XMS_ITS | Encounter Summary ---
Author Organization [facility] Address [address], [place] [address] Care Team Providers Care Mammographer Name Role Phone Franklin Squires MD Primary Care Provider [phone] Encounter Details Date Type Department Care Team (Latest Contact Info) Description 12/11/2017 Correspondence Physiatry/Physical Medicine at [facility] 295 [place] [address] May Randle MD [address] [place] [address] [employer] Social History Tobacco Use [...] on filedocumented in this encounter Care Teams Mammographer Relationship Specialty Start Date End Date Franklin Squires MD [address] [place] [address] [place] [address] PCP - General Family Practice 03/08/16 documented as of this encounter
--- OUTSIDE RECORDS SUMMARY | 2024-08-03 12:47 | XMS_ITS | Encounter Summary ---
Author Organization [facility] [address], [place] [address] Care Team Providers Care Baked Goods Stock Clerk Name Role Phone Franklin Squires MD Primary Care Provider Encounter Details Date Type Department Care Team (Late st Contact Info) Description 11/10/2014 Correspondence [facility] Physical Therapy [address] [place] [address] Trudi Raymundo, PT [address] [place] [address] LETTER OF MEDICAL NECESSITY Social History Tobacco [...] on filedocumented in this encounter Care Teams Baked Goods Stock Clerk Relationship Specialty Start Date End Date Franklin Squires MD 100 [facility] [place] [address] PCP - General Family Practice 03/08/16 documented as of this encounter
--- OUTSIDE RECORDS SUMMARY | 2024-08-03 12:47 | XMS_ITS | Encounter Summary ---
Author Organization [facility] Address [address], [place] [address] Care Team Providers Care Coating Engineer Name Role Phone Franklin Squires MD Primary Care Provider [phone] Encounter Details Date Type Department Care Team (Late st Contact Info) Description 07/23/2013 Correspondence [facility] 401 Interventional Pain Management 401 [facility] [place] [address] Zellaem Cohen DO [address] [place] [address] [employer] Social History Tobacco Use Types [...] MD - 07/23/2013 12:00 AM CDT OR NET PROGRAMMER documented in this encounter Plan of Treatment Not on file documented as of this encounter Visit Diagnoses Not on filedocumented in this encounter Care Teams Coating Engineer Relationship Specialty Start Date End Date Franklin Squires MD 100 [facility] [place] [address] PCP - General Family Practice 03/08/16 documented as of this encounter
--- OUTSIDE RECORDS SUMMARY | 2024-08-03 12:47 | XMS_ITS | Encounter Summary ---
Author Organization [facility] Address [address], [place] [address] Care Team Providers Care Lab Animal Technician Name Role Phone Franklin Squires MD Primary Care Provider [phone] Encounter Details Date Type Department Care Team (Late st Contact Info) Description 12/16/2014 Correspondence External to External, [place] [address] MEDICARE PLAN OF CARE RECERT Social History [...] on filedocumented in this encounter Care Teams Lab Animal Technician Relationship Specialty Start Date End Date Franklin Squires MD [address] [place] [address] [facility] [place] [address] PCP - General Family Practice 03/08/16 documented as of this encounter
--- OUTSIDE RECORDS SUMMARY | 2024-08-03 12:47 | XMS_ITS | Encounter Summary ---
Author Organization [facility] Address [address], [place] [address] Care Team Providers Care Latin Professor Name Role Phone Franklin Squires MD Primary Care Provider Encounter Details Date Type Department Care Team (Late st Contact Info) Description 06/11/2014 Correspondence [facility] 401 Physical Medicine 401 [facility] [place] [address] May Randle MD [address] [place] [address] [facility] Social History Tobacco Use Types Packs/Day Years [...] on filedocumented in this encounter Care Teams Latin Professor Relationship Specialty Start Date End Date Franklin Squires MD 100 [facility] [place] [address] PCP - General Family Practice 03/08/16 documented as of this encounter
--- OUTSIDE RECORDS SUMMARY | 2024-08-03 12:47 | XMS_ITS | Encounter Summary ---
Author Organization [facility] Address [address] [address] Care Team Providers Care Quality Rn Name Role Phone Franklin Squires MD Primary Care Provider [phone] Encounter Details Date Type Department Care Team (Late st Contact Info) Description 06/07/2015 Correspondence [facility] Radiology [address] [place] [address] Radiology, Provider MRI SAFETY SHEET AND COMPATIBILITY [...] filedocumented in this encounter Care Teams Quality Rn Relationship Specialty Start Date End Date Franklin Squires MD [address] [place], [place] [address] [address] PCP - General Family Practice 03/08/16 documented as of this encounter
--- OUTSIDE RECORDS SUMMARY | 2024-08-03 12:47 | XMS_ITS | Encounter Summary ---
Author Organization [facility] Address [address] [address] Care Team Providers Care Wire Frame Lamp Shade Maker Name Role Phone Franklin Squires MD Primary Care Provider [phone] Encounter Details Date Type Department Care Team (Late st Contact Info) Description 08/20/2014 Outside Hospital External to [facility] Social History Tobacco Use [...] filedocumented in this encounter Care Teams Wire Frame Lamp Shade Maker Relationship Specialty Start Date End Date Franklin Squires MD [address] [place], [place] [address] [address] PCP - General Family Practice 03/08/16 documented as of this encounter
--- OUTSIDE RECORDS SUMMARY | 2024-08-03 12:47 | XMS_ITS | Encounter Summary ---
Author Organization [facility] Address [address] [address] Care Team Providers Care Music Therapy Specialist Name Role Phone Franklin Squires MD Primary Care Provider Encounter Details Date Type Department Care Team (Late st Contact Info) Description 01/08/2013 Scanned History External to Transferred Record, Provider [facility] Social History Tobacco Use Types [...] filedocumented in this encounter Care Teams Music Therapy Specialist Relationship Specialty Start Date End Date Franklin Squires MD 100 [facility] [place] [address] PCP - General Family Practice 03/08/16 documented as of this encounter
--- OUTSIDE RECORDS SUMMARY | 2024-08-03 12:47 | XMS_ITS | Encounter Summary ---
Author Organization [facility] Address [address], [place] [address] Care Team Providers Care Cellophane Casting Machine Repairer Name Role Phone Franklin Squires MD [...] filedocumented in this encounter Care Teams Cellophane Casting Machine Repairer Relationship Specialty Start Date End Date Franklin Squires MD 100 [facility] [place] [address] PCP - General Family Practice 03/08/16 documented as of this encounter
--- OUTSIDE RECORDS SUMMARY | 2024-08-03 12:47 | XMS_ITS | Encounter Summary ---
Author Organization [facility] Address [address], [place] [address] Care Team Providers Care Landing Worker Name Role Phone Franklin Squires MD [...] on filedocumented in this encounter Care Teams Landing Worker Relationship Specialty Start Date End Date Franklin Squires MD 100 [facility] [place] [address] PCP - General Family Practice 03/08/16 documented as of this encounter
--- OUTSIDE RECORDS SUMMARY | 2024-08-03 12:47 | XMS_ITS | Encounter Summary ---
Author Organization [facility] Address [address] [address] Care Team Providers Care Wet Chemistry Analyst Name Role Phone Franklin Squires MD Primary Care Provider [phone] Encounter Details Date Type Department Care Team (Late st Contact Info) Description 04/24/[address] [facility] Radiology [address] [place] [address] Radiology, Provider MRI SAFETY SHEET AND COMPATIBILITY [...] on filedocumented in this encounter Care Teams Wet Chemistry Analyst Relationship Specialty Start Date End Date Franklin Squires MD 100 [facility] [place] [address] PCP - General Family Practice 03/08/16 documented as of this encounter
--- OUTSIDE RECORDS SUMMARY | 2024-08-03 12:47 | XMS_ITS | Clinical Summary ---
Author Organization [facility] Address [address] [place] [address] Care Team Providers Care Glue Spreading Machine Operator Name Role Phone Franklin Squires MD Primary Care Provider [phone] Source Comments You are receiving this document [...] for each transition of care or referral. [employer] Allergies Active Allergy Reactions Criticality Noted Date [...] Comments Blood Pressure 120/63 01/18/2022 12:59 PM METALLURGICAL SPECIALIST Pulse 87 01/18/2022 12:59 PM METALLURGICAL SPECIALIST Temperature 36.3 ??C (97.4 ??F) 01/18/2022 [...] this topic Medical Devices Implanted Type Area Gas Turbine Powerplant Mechanic Helper Device Identifier Shelf Expiration Date Model / Serial / Lot [id number] 4ml Tisseel Explanted:([place] ntity not on file) BIOLOGIC N/A: NECK Lynne Fenwall 09/10/2011 [id number] / [id number] / [id number] Description:posterior Cath Intrathecal Indura - [id number] Implanted:Qty: 1 on 05/09/2010 at [facility] DEVICE Right: LUMBAR SPINE [employer] 01/18/2012 8709 / N/A / [id number] Cath Intrathecal Indura - [id number] Implanted:Qty: 1 on 05/29/2010 at [facility] DEVICE [employer] 8709 / / Scr Indira Conic 7.3x80 - [id number] Implanted:Qty: 1 on 03/13/2011 at [facility] DEVICE Right: FEMUR DISTAL [employer] 0 / NONE / NONE Plt Lcp Cndl Rt 4.5x170 6h - [id number] Implanted:Qty: 1 on 03/13/2011 at [facility] DEVICE Right: FEMUR DISTAL [employer] 222.656 / NONE / NONE Description:6 hole 170mm rig ht 4.5mm lcp condylar plate Scr Didier Ss Sftp 4.5x40 - [id number] Implanted:Qty: 1 on 03/13/2011 at [facility] DEVICE Left: FEMUR DISTAL [employer] 214.840 / NONE / NONE Scr Didier Ss Sftp 4.5x50 - [id number] Implanted:Qty: 1 on 03/13/2011 at [facility] DEVICE Left: FEMUR DISTAL [employer] 214.850 / NONE / NONE Scr Indira Lk 5.0x80 - [id number] Implanted:Qty: 2 on 03/13/2011 at [facility] DEVICE Left: FEMUR DISTAL [employer] 02.205.08 0 / NONE / NONE Scr Indira Lk 5.0x85 - [id number] Implanted:Qty: 2 on 03/13/2011 at [facility] DEVICE Left: FEMUR DISTAL [employer] 02.205.08 5 / NONE / NONE Scr Lk Sftp T25 5.0x50 - [id number] Implanted:Qty: 1 on 03/13/2011 at [facility] DEVICE Left: FEMUR DISTAL [employer] 212.219 / NONE / NONE Scr Lk Sftp T25 5.0x60 - [id number] Implanted:Qty: 1 on 03/13/2011 at [facility] DEVICE Left: FEMUR DISTAL [employer] 212.221 / NONE / NONE Scr Indira Conic 7.3x85 - [id number] Implanted:Qty: 1 on 03/13/2011 at [facility] DEVICE Left: FEMUR DISTAL [employer] 02.207.28 5 / NONE / NONE Plt Lcp Cndl Lt 4.5x170 6h - [id number] Implanted:Qty: 1 on 03/13/2011 at [facility] DEVICE Left: FEMUR DISTAL [employer] 222.657 / NONE / NONE Description:6 hole 170mmleng th left 4.5mm lcp condylar plate. Scr Didier Sftp 3.5x60 F-Thrd - [id number] Implanted:Qty: 1 on 03/13/2011 at [facility] DEVICE Left: TIBIA PROXIMAL [employer] 204.860 / NONE / NONE Scr Star Lk Sftp 3.5x32 - [id number] Implanted:Qty: 1 on 03/13/2011 at [facility] DEVICE Left: TIBIA PROXIMAL [employer] 212.112 / NONE / NONE Scr Star Lk Sftp 3.5x55 - [id number] Implanted:Qty: 2 on 03/13/2011 at [facility] DEVICE Left: TIBIA PROXIMAL [employer] 212.123 / NONE / NONE Scr Star Lk Sftp 3.5x60 - [id number] Implanted:Qty: 2 on 03/13/2011 at [facility] DEVICE Left: TIBIA PROXIMAL [employer] 212.124 / NONE / NONE Plt Lcp M/Prox Lt 3.5x94 4h - [id number] Implanted:Qty: 1 on 03/13/2011 at [facility] DEVICE Left: TIBIA PROXIMAL [employer] 239.955 / NONE / NONE Scr Didier Ss Sftp 4.5x36 - [id number] Implanted:Qty: 1 on 03/13/2011 at [facility] DEVICE Right: FEMUR DISTAL [employer] 214.836 / NONE / NONE Scr Didier Ss Sftp 4.5x44 - [id number] Implanted:Qty: 1 on 03/13/2011 at [facility] DEVICE Right: FEMUR DISTAL [employer] 214.844 / NONE / NONE Scr Indira Lk 5.0x75 - [id number] Implanted:Qty: 1 on 03/13/2011 at [facility] DEVICE Right: FEMUR DISTAL [employer] 02.205.07 5 / NONE / NONE Scr Indira Lk 5.0x85 - [id number] Implanted:Qty: 2 on 03/13/2011 at [facility] DEVICE Right: FEMUR DISTAL [employer] 02.205.08 5 / NONE / NONE Scr Lk Sftp T25 5.0x44 - [id number] Implanted:Qty: 1 on 03/13/2011 at [facility] DEVICE Right: FEMUR DISTAL [employer] 212.216 / NONE / NONE Scr Lk Sftp T25 5.0x65 - [id number] Implanted:Qty: 1 on 03/13/2011 at [facility] DEVICE Right: FEMUR DISTAL [employer] 212.222 / NONE / NONE Plt Lp T Ti Str 4h - [id number] Implanted:Qty: 3 on 07/28/2014 by Cooper Shelley MD at [facility] DEVICE Right: SKULL [employer] 421.504 / / Scr Matrix Sfdr 4mm - [id number] Implanted:Qty: 6 on 07/28/2014 by Cooper Shelley MD at [facility] DEVICE Right: SKULL [employer] [place] 04.503.10 4.01 / / Lead Linear 3-4 8 Contact 50cm - [id number] Implanted:Qty: 1 on 03/08/2016 by Zelalem Cohen DO at [facility] DEVICE N/A: OTHER-SEE DESCRIPTION [facility] 09/10/2017 [id number] 2500 / / [id number] Description:LUMBAR Lead Linear 3-4 8 Contact 50cm - [id number] Implanted:Qty: 1 on 03/08/2016 by Zelalem Cohen DO at [facility] DEVICE N/A: OTHER-SEE DESCRIPTION [employer] [facility] 09/10/2017 [id number] 2500 / / [id number] Description:LUMBAR Lead Linear 3-4 8 Contact 50cm - [id number] Implanted:Qty: 1 on 03/08/2016 by Zelalem Cohen DO at [facility] DEVICE N/A: OTHER-SEE DESCRIPTION [facility] 09/10/2017 [id number] 2500 / / [id number] Description:LUMBAR Lead Linear 3-4 8 Contact 50cm - [id number] Implanted:Qty: 1 on 03/08/2016 by Zelalem oChen DO at [facility] DEVICE N/A: OTHER-SEE DESCRIPTION [facility] 09/10/2017 [id number] 2500 / / [id number] Description:LUMBAR Lead Linear 3-4 8 Contact 50cm - [id number] Implanted:Qty: 1 on 05/24/2016 by Zelalem Cohen DO at [facility] DEVICE N/A: SPINE LUMBAR POSTERIOR [facility] 01/31/2018 [id number] 2500 / [id number] / Lead Linear 3-4 8 Contact 50cm - [id number] Implanted:Qty: 1 on 05/24/2016 by Zelalem Cohen DO at [facility] DEVICE N/A: SPINE LUMBAR POSTERIOR [facility] 04/26/2018 [id number] 2500 / [id number] / Lead Linear 3-4 8 Contact 50cm - [id number] Implanted:Qty: 1 on 05/24/2016 by Zelalem Cohen DO at [facility] DEVICE N/A: SPINE LUMBAR POSTERIOR [facility] 04/26/2018 [id number] 2500 / [id number] / Lead Linear 3-4 8 Contact 50cm - [id number] Implanted:Qty: 1 on 05/24/2016 by Zelalem Cohen DO at [facility] DEVICE N/A: SPINE LUMBAR POSTERIOR [facility] 04/26/2018 [id number] 2500 / [id number] / Generator Pulse Spectra - [id number] Implanted:Qty: 1 on 05/24/2016 by Zelalem Cohen DO at [facility] DEVICE N/A: SPINE LUMBAR POSTERIOR [facility] 05/08/2018 [id number] 20 / [id number] / [id number] [place] [employer] - [id number] Implanted:Qty: 1 on 05/24/2016 by Zelalem Cohen DO at [facility] DEVICE N/A: SPINE LUMBAR POSTERIOR [facility] 05/02/2018 [id number] 60 / / [id number] [place] [employer] - [id number] Implanted:Qty: 1 on 05/24/2016 by Zelalem Cohen DO at [facility] DEVICE N/A: SPINE LUMBAR POSTERIOR [facility] 02/28/2018 [id number] 60 / / [id number] Procedures Procedure Name Priority Date/Time Associated Diagnosis Comments CREATININE/GFR, WB POC Routine 01/06/2016 12:04 PM METALLURGICAL SPECIALIST Back pain, 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 HGB A1C Routine 07/29/2014 3:19 AM CDT from Last 3 Months or Most Recently Relevant to Health Maintenance Results * CREATININE/GFR, WB POC (01/06/2016 12:04 PM METALLURGICAL SPECIALIST) [facility] Creat Whole Blood 0.9 0.66 - 1.25 mg/dl [facility] GFR, Estimated >60 >60 ml/min/1.7 3m2 [facility] GFR, Est., If Black >60 >60 ml/min/1.7 3m2 [facility] 01/06/2016 12:0 4 PM METALLURGICAL SPECIALIST 01/06/2016 12:21 PM METALLURGICAL SPECIALIST Trae Blair MD LAB_1 [facility] [phone] * (ABNORMAL) HGB A1C (07/29/2014 3:19 AM CDT) [facility] Hgb A1c 6.4(H) 4.3 - 6.1 % [facility] Comment: The usual A1C goal for people with diabetes, age 18-75, is <8.0%. Physicians may recommend a higher or lower goal for specific individuals. 07/29/2014 3:19 AM CDT 07/29/2014 3:22 AM CDT Narrative [facility] - 07/29/2014 12:53 PM CDT [facility], [address] [place] [address] ??[id number] [place] Wei PA-C LAB_[address] [address] from Last 3 Months or Most Recently [...] 5:44 PM 07/28/2014 6:50 PM Care Teams Glue Spreading Machine Operator Relationship Specialty Start Date End Date Franklin Squires MD 100 [facility] [place] [address] PCP - General Family Practice 03/08/16
--- OUTSIDE RECORDS SUMMARY | 2024-08-03 12:47 | XMS_ITS ---
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 Treatments may have been administered in another system. Resolved Problems Problem Noted Date Diagnosed Date Resolved Date Gait abnormality 01/17/2012 02/09/2015 Back pain 01/17/2012 02/09/2015 Paraplegia 04/04/2011 02/09/2015 Osteoporosis 03/06/2011 02/09/2015 Urinary tract infection 12/24/200603/11
--- OUTSIDE RECORDS SUMMARY | 2024-08-03 12:47 | XMS_ITS | Encounter Summary ---
Author Organization [facility] Address [address], [place] [address] Care Team Providers Care Grounds Maintenance Worker Name Role Phone Franklin Squires MD Primary Care Provider Encounter Details Date Type Department Care Team (Late st Contact Info) Description 02/09/2016 [facility] 401 NeuroSurgery 401 [facility]. [place], [place] [id number] Jodi Aguila PA-C [address] [place] [address] PATIENT LIFT PRESCRIPTION Social History Tobacco Use [...] on filedocumented in this encounter Care Teams Grounds Maintenance Worker Relationship Specialty Start Date End Date Franklin Squires MD 100 [facility] [place] [id number] PCP - General Family Practice 03/08/16 documented as of this encounter
--- OUTSIDE RECORDS SUMMARY | 2024-08-03 12:47 | XMS_ITS | Encounter Summary ---
Author Organization [facility] Address [address] [address] Care Team Providers Care Break And Load Operator Name Role Phone Franklin Squires MD Primary Care Provider Encounter Details Date Type Department Care Team (Late st Contact Info) Description 09/07/2014 Correspondence [facility] Radiology [address] [place] [id number] Radiology, Provider MRI SAFETY SHEET AND COMPATIBILITY [...] on filedocumented in this encounter Care Teams Break And Load Operator Relationship Specialty Start Date End Date Franklin Squires MD [address] [place], [place] [address] [address] PCP - General Family Practice 03/08/16 documented as of this encounter
--- OUTSIDE RECORDS SUMMARY | 2024-08-03 12:47 | XMS_ITS | Encounter Summary ---
Author Organization On license of [facility] [address], [place] [address] Care Team Providers Care Line Fixer Name Role Phone Franklin Squires MD Primary Care Provider [phone] Encounter Details Date Type Department Care Team (Late st Contact Info) Description 02/05/2014 Correspondence [facility] Physical Therapy [address] [place] [address] Trudi Raymundo, PT [address] [place] [address] LETTER OF MEDICAL NECESSITY FOR A WHEELCHAIR [...] filedocumented in this encounter Care Teams Line Fixer Relationship Specialty Start Date End Date Franklin Squires MD 100 [facility] [place] [address] PCP - General Family Practice 03/08/16 documented as of this encounter
--- OUTSIDE RECORDS SUMMARY | 2024-08-03 12:47 | XMS_ITS | Encounter Summary ---
Author Organization [facility] Address [address], [place] [address] Care Team Providers Care Coke Worker Name Role Phone Franklin Squires MD Primary Care Provider [phone] Encounter Details Date Type Department Care Team (Late st Contact Info) Description 01/06/2016 Correspondence [facility] Radiology [address] [place] [address] Radiology, Provider MRI SAFETY SHEET AND COMPATIBILITY [...] on filedocumented in this encounter Care Teams Coke Worker Relationship Specialty Start Date End Date Franklin Squires MD [address] [place], [place] [address] [address] PCP - General Family Practice 03/08/16 documented as of this encounter
--- OUTSIDE RECORDS SUMMARY | 2024-08-03 12:47 | XMS_ITS | Encounter Summary ---
Author Organization [facility] Address [address], [place] [address] Care Team Providers Care Machine Technician Name Role Phone Franklin Squires MD Primary Care Provider Encounter Details Date Type Department Care Team (Late st Contact Info) Description 03/11/2014 [facility] 401 Interventional Pain Management 401 [facility] [place] [address] Zelalem Cohen, DO [address] [place] [address] EMPI Social History Tobacco Use Types Packs/Day [...] filedocumented in this encounter Care Teams Machine Technician Relationship Specialty Start Date End Date Franklin Squires MD 100 [facility] [place] [address] PCP - General Family Practice 03/08/16 documented as of this encounter
== END 2024-08-03 12:43 | disposition home or self-care (01) ==
LOC: WOUND 12:43
PROVIDERS: PCP Family Medicine; Visit Provider Nurse Practitioner Family
DX: M86.68 Other chronic osteomyelitis, other site (principal); L89.324 Pressure ulcer of left buttock, stage 4; G82.50 Quadriplegia, unspecified
CPT/HCPCS: 11042

== ENCOUNTER 2024-08-10 12:47 | Outpatient (CLI) | payer MEDICARE, OTHER, SELFPAY ==
--- OUTSIDE RECORDS SUMMARY | 2024-08-10 12:51 | XMS_ITS | Clinical Summary ---
Author Organization [facility] Address [place], [place] [address] Care Team Providers Care Rehab Physician Name Role Phone Zelalem Cohen MD Unavailable [phone] May Randle) Unavailable Franklin Squires MD Primary Care Provider Fred Craft Unavailable [phone] Diane Charles MD Unavailable [phone] Julia Ware RN Unavailable [phone] Allergies Active Allergy Reactions Criticality Noted Date [...] bedIndications:Non-heal ing surgical wound, subsequent encounter [employer] 8 inch low loss mattress and 1/2 rails. Semi-electric bed. Length of need 6 weeks. Bed safety glass installer:no 1 unit 018 Active acetaminophen (TYLENOL EXTRA STRGTH) 500 mg tabletIndications:fever ,pain Take 1,000 mg by mouth three times daily. Max acetaminophen dose: 4000mg in 24 hrs. Active sodium chloride (AYR SALINE NASL) Inhale 2-3 Sprays in the nostril(s) once daily if needed. 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 [employer] Kite Click Ostomy Barrier with belt tabs 60mm, Cut-to-Fit 01/16 - 2 11/18. Item #[id number]. 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),Anticoagulation monitoring, INR range 2-3,Anticoagulation monitoring, INR range 2-3,SDH (subdural hematoma) (HC) Take by mouth 11.25 mg (7.5 mg x 1.5) every Fri; 7.5 mg (7.5 mg x 1) all other days or as directed Active buPROPion (WELLBUTRIN SR) 150 mg Sustained-Release tabletIndications:Depre ssive disorder TAKE 1 TABLET TWICE A DAY 180 Tablet 1 2023 Discontinued warfarin (COUMADIN) 5 mg tabletIndications:Iliof [...] the evening OR as directed 95 Tablet 2023 Discontinued(R eorder (E-cancel not sent)) oxyCODONE [...] 09/27/2008 Assessment & Plan (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 Bright PM&R: Dr. May Randle Pain Management: Dr. 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 Pure hypercholesterolemia 12/24/2006 Neurogenic bladder 12/24/2006 Neurogenic bowel 12/24/2006 Hypertension Resolved Problems Problem Noted Date Diagnosed Date Resolved Date Soft tissue infection 10/22/20232023 intermediate card tender current use of anticoagulant 06/20/2023 01/08/2024 Cellulitis of scrotum 05/08/20232022 UTI (urinary tract infection) 05/08/2023 06/20/2023 Quadriplegia, unspecified 10/23/2022 Continuous opioid dependence 07/01/2022 08/20/2022 Urinary tract infection asso ciated with indwelling urethral catheter 10/05/2021 06/20/2023 Hypertensive urgency 10/04/2021 023 Type 2 diabetes mellitus, wi [facility] long-term current use of insulin [...] 04/16/2007 10/01/2007 Overview (04/16/2007): S/P IVC Filter intermediate card tender (current) use of anticoagulants 02/19/2007 09/27/2008 Depressive disorder, not elsewhere classified 02/14/20 07 01/15/2018 Abnormality of gait 12/24/2006 09/27/20 08 Urinary tract infection, site not specified 12/24/2006 01/15/2018 BENIGN ESSENTIAL HYPERTENSION 12/24/2006 04/17/2016 Overview (12/24/2006): borderline Necrotizing fasciitis 2018 Type 2 diabetes mellitus Encounters Date Type Department Care Team Description 08/07/2024 Anticoagulation (warfarin) [address] [address] 1, [facility] Anticoagulation (Acelis) 08/06/2024 11:27 AM CDT - 08/06/2024 11:59 PM CDT Hospital Encounter [facility] [address] [place] [address] Wound infection (Primary Dx) 08/06/2024 Travel 08/06/2024 Hospital/[facility] Telepho ne Encounter [address] [place] [address] Yen Hernandez RN Pre Procedure (PVP) 08/04/[address] [address] Franklin Squires MD Form 07/31/2024 Anticoagulation (warfarin) [address] [address] 1, [facility] Anticoagulation (Acelis) 07/30/2024 11:25 AM CDT - 07/30/2024 11:59 PM CDT Hospital Encounter [facility] [address] [facility] [place] [address] Wound infection (Primary Dx) 07/30/2024 Hospital/[facility] Telepho ne Encounter [facility] [address] [place] [address] Yen Hernandez, RN Pre Procedure (PVP) 07/29/2024 1:30 PM CDT Nurse/Clinic Staff Only [facility] [address] [place] [address] Nurse/Clinic Staff Only (Suprapubic Cath) 07/29/2024 Refill [facility] [address] [place] [address] Franklin Squires MD Refill Request (Oxycodone) 07/29/2024 Travel 07/27/2024 Anticoagulation (warfarin) [address] [address] , [facility] Anticoagulation (Acelis) 07/24/2024 Telephone [facility] [address] [place] [address] Franklin Squires MD Anticoagulation (new med) 07/23/2024 8:46 AM CDT - 07/23/2024 2:33 PM CDT Hospital Encounter [facility] [address] [place] [address] Yudith Mcgraw NP Wound infection (Primary Dx) Discharge Disposition: Home Health 07/23/2024 Orders Only [facility] [address] [place] [address] Yudith Mcgraw NP 1 scan: INFUSION CEFEPIME 2 MG 07/23/2024 Travel 07/22/2024 Telephone [facility] [address] [place] [address] Yen Hernandez, RN Appointment 07/22/2024 Telephone [facility] [address] [place] [address] Jennyfer Penny RN 07/15/2024 Telephone [facility] [address] [place] [address] Franklin Squires MD Anticoagulation (Order renewal) 07/15/2024 Anticoagulation (warfarin) [address] [place] [address] 1, [facility] Anticoagulation (Acelis ) 07/14/[address] [place] [address] Franklin Squires MD Form (Case Communication- Major drug interactions-( Warfarin) - Home Health Certification and Plan of Care - 07/08/2024-09/05/2024) 07/14/[address] [place] [address] Franklin Squires MD Refill Request (Bupropion) 07/09/2024 Orders Only [facility] Scanner 1 scan: (1-Ord) [facility], CT PELVIS W CON, 07/09/2024 07/08/2024 1:30 PM CDT Nurse/Clinic Staff Only [address] [place] [address] Nurse/Clinic Staff Only (Cath Change ) 07/08/2024 Travel 07/07/[address] [place] [address] Franklin Squires MD Refill Request (Donepezil) 07/02/2024 1:30 PM CDT Office Visit [address] [place] [address] Franklin Squires MD Medication Management 07/02/2024 Travel 07/01/2024 Anticoagulation (warfarin) [address] [place] [address] 1, [facility] Anticoagulation (Acelis) 06/17/2024 Anticoagulation (warfarin) [address] [place] [address] 1, [facility] Anticoagulation (acelis) 06/11/[address] [place] [address] Franklin Squires MD Refill Request (Warfarin) 06/03/2024 Anticoagulation (warfarin) [address] [place] [address] 1, [facility] Anticoagulation (Acelis) 06/02/[address] [place] [address] Franklin Squires MD Refill Request (Oxycodone) 05/20/2024 Anticoagulation (warfarin) [address] [place] [address] 1, [facility] Anticoagulation (Acelis) 05/14/[address] [place] [address] Franklin Squires MD Refill Request (Baclofen) 05/14/[address] [place] [address] Franklin Squires MD Refill Request (Warfarin) 05/13/2024 Anticoagulation (warfarin) [address] [place] [address] 1, [facility] Anticoagulation (Acelis) 05/11/[address] [place] [address] Franklin Squires MD Form (Physician Orders and Home Health Certification and Plan of Care.) from Last 3 Months Immunizations Name Administration Dates Next Due COVID-19 vaccine ([employer] 30mcg/0.3mL) 12YO+ BIVALENT PF, MDV 10/22/2022 COVID-19 vaccine ([employer] 30mcg/0.3mL) PF, MDV 01/25/2021,01/02/2021 Influenza A [...] 08/19/2024 2:00 PM CDT Nurse/Clinic Staff Only [address] [address] Health Maintenance Due Date Last Done Comments Hepatitis C screening for ag e 18-79 1963 Zoster (shingles) series for age 50+ (2 of 3) 01/11/2016 11/16/2015, 03/23/2013 Medicare Wellness for age 65+ 02/07/2018 02/06/2017, 10/19/2015 RSV vaccine for adults or (1 - 1-dose 75+ series) 2021 COVID-19 vaccine series ( season) 2024 10/22/2022, [...] Associated Diagnosis Comments HOME MONITOR AC Routine 08/07/2024 12:00 AM CDT CBC WITH AUTO DIFFERENTIAL Today 08/06/2024 11:45 AM CDT Wound infection BASIC METABOLIC PANEL Today 08/06/2024 11:45 AM CDT Wound infection CBC WITH AUTO DIFFERENTIAL Today 08/06/2024 11:45 AM CDT Wound infection HOME MONITOR AC Routine 07/31/2024 12:00 AM [...] 2:14 PM CDT Pure hypercholesterolemia HEMOGLOBIN A1C MONITORING (POCT) Routine 07/02/2024 2:14 PM CDT Type 2 [...] MONITOR AC Routine 05/13/2024 12:00 AM CDT from Last 3 Months Results * (ABNORMAL) HOME MONITOR AC (08/07/2024 12:00 AM CDT) Only the most recent of9 resultswithin the time period is included. PATIENT REPORTED HOME INR 1.8(L) 2.00 - 3.00 [facility] HOME MONITORING 08/07/2024 Franklin Squires MD OTHER [facility] [address] [place] [address] * (ABNORMAL) CBC WITH AUTO DIFFERENTIAL (08/06/2024 11:45 AM CDT) Only the most recent of2 resultswithin the time period is included. Pathologist [facility] WHITE BLOOD COUNT 8.0 4.5 - 11.0 thou/cu mm 08/06/2024 12:02 PM [facility] RED BLOOD COUNT 4.33 4.30 - 5.90 mil/cu mm 08/06/2024 12:02 PM [facility] HEMOGLOBIN 13.5 13.5 - 17.5 g/dL 08/06/2024 12:02 PM [facility] HEMATOCRIT 39.7 37.0 - 53.0 % 08/06/2024 12:02 PM [facility] MCV 92 80 - 100 fL 08/06/2024 12:02 PM [facility] MCH 31.2 26.0 - 34.0 pg 08/06/2024 12:02 PM [facility] MCHC 34.0 32.0 - 36.0 g/dL 08/06/2024 12:02 PM [facility] RDW 16.1(H) 11.5 - 15.5 % 08/06/2024 12:02 PM [facility] PLATELET COUNT 111(L) 140 - 440 thou/cu mm 08/06/2024 12:02 PM [facility] MPV 11.3(H) 6.5 - 11.0 fL 08/06/2024 12:02 PM [facility] % NEUT 58.9 % 08/06/2024 12:02 PM [facility] % LYMPH 30.5 % 08/06/2024 12:02 PM [facility] % MONO 8.9 % 08/06/2024 12:02 PM [facility] % EOS 1.5 % 08/06/2024 12:02 PM [facility] % BASO 0.2 % 08/06/2024 12:02 PM [facility] ABSOLUTE NEUTROPHILS 4.7 1.7 - 7.0 thou/cu mm 08/06/2024 12:02 PM [facility] ABSOLUTE LYMPHOCYTES 2.5 0.9 - 2.9 thou/cu mm 08/06/2024 12:02 PM [facility] ABSOLUTE MONOCYTES 0.7 <0.9 thou/cu mm 08/06/2024 12:02 PM T [facility] ABSOLUTE EOSINOPHILS 0.1 <0.5 thou/cu mm 08/06/2024 12:02 PM [facility] ABSOLUTE BASOPHILS 0.0 <0.3 thou/cu mm 08/06/2024 12:02 PM [facility] Blood BLOOD SPECIMEN / Unknown Line/Port / Unknown 08/06/2024 11:45 AM CDT 08/06/2024 11:57 AM CDT [facility] - 08/06/2024 12:02 PM CDT Fax results to [phone] Yudith Mcgraw NP HEMATOLOGY [facility] [address] [place] [id number] * (ABNORMAL) BASIC METABOLIC PANEL (08/06/2024 11:45 AM CDT) Only the most recent of3 resultswithin the time period is included. SODIUM 134(L) 136 - 145 mmol/L 08/06/2024 12:17 PM [facility] POTASSIUM 4.1 3.5 - 5.1 mmol/L 08/06/2024 12:17 PM [facility] CHLORIDE 97(L) 98 - 107 mmol/L 08/06/2024 12:17 PM [facility] CO2,TOTAL 30(H) 22 - 29 mmol/L 08/06/2024 12:17 PM [facility] ANION GAP 7 5 - 18 08/06/2024 12:17 PM [facility] GLUCOSE 155(H) 70 - 99 mg/dL 08/06/2024 12:17 PM [facility] CALCIUM 9.1 8.8 - 10.2 mg/dL 08/06/2024 12:17 PM [facility] BUN 18 8 - 23 mg/dL 08/06/2024 12:17 PM T [facility] CREATININE 0.64(L) 0.70 - 1.20 mg/dL 08/06/2024 12:17 PM T [facility] BUN/CREAT RATIO 28(H) 10 - 20 12:17 PM T [facility] eGFR >90 >90 mL/min/1.7 3m2 08/06/2024 12:17 PM T [facility] Comment:As of 2022, eG FR is calculated by the CKD-EPI creatinine equation without race adjustment. ??eGFR can be influenced by muscle mass, exercise, and diet. ??The reported eGFR is an estimation only and is only applicable if the renal function is stable. Blood BLOOD SPECIMEN / Unknown Line/Port / Unknown 08/06/2024 11:45 AM CDT 08/06/2024 11:57 AM CDT Yudith Mcgraw ELECTRONIC SCIENCE TEACHER CHEMISTRY Performing Organization Address City/[facility]/ZIP Co de Phone Number [facility] [address] [place] [address] * EXTRA TUBE LAVENDER (07/23/2024 10:59 AM CDT) Blood BLOOD SPECIMEN / Unknown Extra Tube / Unknown 07/23/2024 10:59 AM CDT 07/23/2024 11:06 AM CDT Doctor Unknown LABORATORY [facility] [address] [place] [address] * EXTRA TUBE BLUE (07/23/2024 10:59 AM CDT) Blood BLOOD SPECIMEN / Unknown Extra Tube / Unknown 07/23/2024 10:59 AM CDT 07/23/2024 11:06 AM CDT Doctor Unknown LABORATORY Performing Organization Address City/[facility]/ZIP Co de Phone Number [facility] [address] [place] [address] * XR CHEST 1 VIEW PORTABLE (07/23/2024 [...] - 199 mg/dL 07/02/2024 3:04 PM T [facility] Comment: Cholesterol, Total Reference Ranges Desirable <200 mg/dL Borderline 200-239 mg/dL High >=240 mg/dL TRIGLYCERIDES 58 <150 mg/dL 07/02/2024 3:04 PM T [facility] HDL CHOLESTEROL 56 >40 mg/dL 3:04 PM [facility] NON-HDL CHOLESTEROL 66 <145 mg/dl 07/02/2024 3:04 PM [facility] CHOL/HDL RATIO 2.18 <4.50 07/02/2024 3:04 PM [facility] LDL CHOLESTEROL 54 <=130 mg/dL 07/02/2024 3:04 PM [facility] VLDL CHOLESTEROL 12 <=30 mg/dL 07/02/2024 3:04 PM T [facility] PROVIDER ORDERED STATUS RANDOM 07/02/2024 3:04 PM [facility] Blood BLOOD SPECIMEN / Unknown Venipuncture / Unknown 07/02/2024 2:14 PM CDT 07/02/2024 2:14 PM CDT Franklin Squires MD CHEMISTRY [facility] [address] [place] [phone] * (ABNORMAL) CBC W PLT NO DIFF (07/02/2024 2:14 PM CDT) [facility] WHITE BLOOD COUNT 8.5 4.5 - 11.0 thou/cu mm 07/02/2024 2:58 PM CDT [facility] RED BLOOD COUNT 4.75 4.30 - 5.90 mil/cu mm 07/02/2024 2:58 PM CDT [facility] HEMOGLOBIN 14.1 13.5 - 17.5 g/dL 07/02/2024 2:58 PM CDT [facility] HEMATOCRIT 42.2 37.0 - 53.0 % 07/02/2024 2:58 PM CDT [facility] MCV 89 80 - 100 fL 07/02/2024 2:58 PM CDT [facility] MCH 29.7 26.0 - 34.0 pg 07/02/2024 2:58 PM CDT [facility] MCHC 33.4 32.0 - 36.0 g/dL 07/02/2024 2:58 PM CDT [facility] RDW 18.3(H) 11.5 - 15.5 % 07/02/2024 2:58 PM CDT [facility] PLATELET COUNT 159 140 - 440 thou/cu mm 07/02/2024 2:58 PM CDT [facility] MPV 10.7 6.5 - 11.0 fL 07/02/2024 2:58 PM CDT [facility] Blood BLOOD SPECIMEN / Unknown Venipuncture / Unknown 07/02/2024 2:14 PM CDT 07/02/2024 2:14 PM CDT Franklin Squires MD HEMATOLOGY [facility] [address] [facility] [place] [address] * HEMOGLOBIN A1C MONITORING (POCT) (07/02/2024 2:14 PM CDT) [facility] HEMOGLOBIN A1C MONITORING (POCT) 5.9 <=6.4 % 07/02/2024 2:49 PM CDT [facility] Blood BLOOD SPECIMEN / Unknown Venipuncture / Unknown 07/02/2024 2:14 PM CDT 07/02/2024 2:14 PM CDT Narrative [facility] - 07/02/2024 2:49 PM CDT [...] Anemias, Splenectomy ? Franklin Squires MD CHEMISTRY [facility] [address] [place] [address] from Last 3 Months Additional [...] 12 months since positive culture): resides in acute/detention care, receiving hemodialysis, has chronic open wounds/skin damage, has long-term percutaneous indwelling medical devices Exclusions for nares collection (if <12 months since positive culture) include all of the previous exclusions plus patients on antibiotics 7 days prior to collection 03/13/2018 03/20/2024 Advance Directives Documents on File Type Date Recorded Patient Test Engine Evaluator Expl anation Treatment Guidelines 08/04/2024 Healthcare Directive 05/09/2023 023 Healthcare Directive 05/09/2023 [...] Code Status Discussion: Reviewed Preferences Care Teams Rehab Physician Relationship Specialty Start Date End Date Franklin Squires MD [address] [place] [address] PCP - General Family Practice 10/18/15 Zelalem Cohen MD Physical Therapist 03/13/12 May Randle Md, MD Physical Medicine and Rehabilitation 03/13/12 Luana, FAUSTINO Krueger [address] [place] [address] Rigger Helper 05/03/17 Diane Charles MD [address] [place] [address] Surgery - Urology 01/17/23 Julia Ware, RN [address] [place] [address] [place] [address] Registered Nurse 07/17/23
--- OUTSIDE RECORDS SUMMARY | 2024-08-10 12:51 | XMS_ITS | Continuity of Care Document ---
Author Name [facility] Organization [facility] Care Team Providers Care Stem Crusher Name Role Phone [facility] Unavailable Unavailable Problems Combined list of problems from 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 It does not include entries that were removed or entered in error. Problem Status Onset Date Problem Type Date of Resolution Comments Source Abnormal liver function Active Condition [facility] Anemia ([facility] 895642032) Active Condition [facility] Anxiety ([facility] 32730383) Active Condition [facility] Autonomic dysreflexia Active Condition [facility] Chronic Pain Syndrome ([facility] 305165060) Active Condition [facility] Colostomy present Active Condition [facility] Constipation ([facility] 87279484) Active Condition [facility] Continuous opioid dependence Active Condition [facility] COPD - Chronic Obstructive Pulmonary Disease ([facility] 05851000) Active Condition [facility] Dementia Active Condition [facility] Depression ([facility] 30727537) Active Condition [facility] Diabetes Mellitus Type 2 ([facility]CT 52445495) Active Condition [facility] Ependymoma of spinal cord Active Condition [facility] Hearing Loss ([facility] 74898116) Active Condition [facility] History of Deep Vein Thrombosis ([facility] 104546118) Active Condition [facility] History of pressure injury Active Condition [facility] HTN - Hypertension ([facility] 81051638) Active Condition [facility] Hyperlipidemia ([facility] 69751136) Active Condition [facility] Hyponatremia Active Condition [facility] Long-term current use of anticoagulant Active Condition [facility] Neurogenic Bladder ([facility] 440986126) Active Condition [facility] Neurogenic bowel Active Condition [facility] Osteoporosis ([facility] 52305706) Active Condition [facility] Paraplegia Active Condition [facility] Spasticity Active Condition [facility] Suprapubic urinary catheter in situ Active Condition [facility] Supraventricular tachycardia Active Condition [facility] Tinnitus ([facility] 72709690) Active Condition [facility] Vitamin D Deficiency ([facility] 4023770) Active Condition [facility] Diagnosis: ICD-10-CM Z73.6 Limitation of activities due to disability Active Diagnosis [facility] Diagnosis: ICD-10-CM G82.20 Paraplegia, unspecified Active Diagnosis [facility] Diagnosis: ICD-10-CM Z43.3 Encounter for attention to colostomy Active Diagnosis [facility] Diagnosis: ICD-10-CM Z71.3 Dietary counseling and surveillance Active Diagnosis [facility] Diagnosis: ICD-10-CM F32.A Depression, unspecified Active Diagnosis [facility] Medications Combined list of outpatient medications from Department of Defense and [facility] Affairs facilities.Medications provided include 1) [...] ed by: PIPO BARRETT Document ed at: [facility] ORAL ACTIVE Jagdish BARRETT 2022 [facility] AMLODIPINE BESYLATE (AMLODIPINE BESYLATE), 5 MG, TABLET, ORAL, [facility] [employer] [employer] 1000 ea. BOTTLE Active [id number] 2023 90 Pharmac y Data Transac tion Service Facilit y AMLODIPINE BESYLATE (amlodipine besylate), 5 MG, TABLET, ORAL, [facility], 1000 ea. BOTTLE Active [id number] 2023 90 Pharmac y Data Transac tion Service Facilit y AMLODIPINE BESYLATE 2.5MG TAB AMLODIPI NE BESYLATE 2.5MG TAB Non-VA TAKE TWO TABLETS BY MOUTH EVERY MORNING Feb 05, 2023 Non-[place] Document ed by: PIPO BARRETT Document ed at: [facility] ORAL ACTIVE Jagdish BARRETT 2022 [facility] AMOX TR-POTASSIU M CLAVULANATE (AMOXICILLI N/POTASSIUM CLAV), 875-125 MG, TABLET, ORAL, [employer] [place], 20 ea. BOTTLE Active [id number] 2022 14 Pharmac y Data Transac tion Service Facilit y AMOXICILLIN -CLAVULANAT E POTASS (amoxicilli n/potassium clavulanate ), 875-125 MG, TABLET, ORAL, [employer] [place],, 20 ea. BOTTLE Active [id number] 2023 20 Pharmac y Data Transac tion Service Facilit y AMOXICILLIN -CLAVULANAT E POTASS (amoxicilli n/potassium clavulanate ), 875-125 MG, TABLET, ORAL, [facility] [place],, 20 ea. BOTTLE Active [id number] 2023 56 Pharmac y Data Transac tion Service Facilit y ARIPIPRAZOL E (aripiprazo le), 2 MG, TABLET, ORAL, [employer] [facility], 500 ea. BOTTLE Active [id number] 2023 180 Pharmac y Data Transac tion Service Facilit y ARIPIPRAZOL E (aripiprazo le), 2 MG, TABLET, ORAL, [employer] [facility], 500 ea. BOTTLE Active [id number] 2023 180 Pharmac y Data Transac tion Service Facilit y ARIPIPRAZOL E TAB ARIPIPRA ZOLE TAB Non-VA TAKE 2MG BY MOUTH TWICE A DAY May 29, 2022 Non-VA Document ed by: SHANTAL HANSON Document ed at: [facility] ORAL ACTIVE Jey HANSON 2021 [facility] ATIVAN (LORAZEPAM) , 0.5 MG, TABLET, ORAL, [employer], 100 ea. BOTTLE Active [id number] 2023 120 Pharmac y Data Transac [...] BIOCON PHARMA I, 1000 ea. BOTTLE Active [id number] 2023 90 Pharmac y Data Transac tion Service Facilit y ATORVASTATI N CALCIUM (atorvastat in calcium), 40 MG, TABLET, ORAL, [employer] PHARMA I, 1000 ea. BOTTLE Active [id number] 2023 90 Pharmac y Data Transac [...] ORAL, [facility], 60 ea. BOTTLE Active [id number] 2023 180 Pharmac y Data Transac tion Service Facilit y BUPROPION HCL SR (bupropion HCl), 150 MG, TAB SR 12H, ORAL, [facility], 60 ea. BOTTLE Active [id number] 2023 180 Pharmac y Data Transac [...] ORAL, AUROB[employer] PHARM, 50 ea. BOTTLE Active [id number] 2023 70 Pharmac y Data Transac tion Service Facilit y DONEPEZIL HCL (DONEPEZIL HCL), 5 MG, TABLET, ORAL, [employer] 1000 ea. BOTTLE Active [id number] 2023 90 Pharmac y Data Transac tion Service Facilit y DONEPEZIL HCL (DONEPEZIL HCL), 5 MG, TABLET, ORAL, [employer] 1000 ea. BOTTLE Cancele d [id number] : 2023 0 Pharmac y Data Transac tion Service Facilit y DONEPEZIL HCL (DONEPEZIL HCL), 5 MG, TABLET, ORAL, [employer] 1000 ea. BOTTLE Active [id number] 2023 90 Pharmac y Data Transac tion Service Facilit y DONEPEZIL HCL 10MG TAB DONEPEZI L HCL 10MG TAB Non-VA TAKE ONE-HALF TABLET BY MOUTH EVERY DAY May 29, 2022 Non-VA Document ed by: SHANTAL HANSON Document ed at: [facility] ORAL ACTIVE Jey HANSON 2021 [facility] DULOXETINE HCL (duloxetine HCl), 60 MG, CAPSULE DR, ORAL, [employer] 1000 ea. BOTTLE Active [id number] 2023 180 Pharmac y Data Transac tion Service Facilit y DULOXETINE HCL (duloxetine HCl), 60 MG, CAPSULE DR, ORAL, [employer] 1000 ea. BOTTLE Active [id number] 2023 180 Pharmac y Data Transac tion Service Facilit y DULOXETINE HCL 30MG CAP,EC DULOXETI NE HCL 30MG CAP,EC Non-VA TAKE 2 CAPSULES BY MOUTH TWICE A DAY May 29, 2022 Non-VA Document ed by: SHANTAL HANSON Document ed at: [facility] ORAL ACTIVE Jey HANSON 2021 [facility] FAMOTIDINE (famotidine ), 20 MG, TABLET, ORAL, [employer] 1000 ea. BOTTLE Active [id number] 2023 180 Pharmac y Data Transac tion Service Facilit y FAMOTIDINE 20MG TAB FAMOTIDI NE 20MG TAB Non-VA TAKE ONE TABLET BY MOUTH TWICE A DAY May 29, 2022 Non-VA Document ed by: SHANTAL HANSON Document ed at: [facility] ORAL ACTIVE Jey HANSON 2021 [facility] FUROSEMIDE (furosemide ), 40 MG, TABLET, ORAL, [employer], 1000 ea. BOTTLE Active [id number] 2023 180 Pharmac y Data Transac tion Service Facilit y FUROSEMIDE 40MG TAB FUROSEMI DE 40MG TAB Non-VA TAKE ONE TABLET BY MOUTH TWICE A DAY May 29, 2022 Non-VA Document ed by: SHANTAL HANSON Document ed at: [facility] ORAL ACTIVE Jey HANSON 2021 [facility] GABAPENTIN (gabapentin ), 400 MG, CAPSULE, ORAL, [employer] 500 ea. BOTTLE Active [id number] 2023 270 Pharmac y Data Transac tion Service Facilit y GABAPENTIN (gabapentin ), 400 MG, CAPSULE, ORAL, [employer], 500 ea. BOTTLE Active [id number] 2023 270 Pharmac y Data Transac tion Service Facilit y GABAPENTIN (gabapentin ), 400 MG, CAPSULE, ORAL, [employer] [facility], 500 ea. BOTTLE Cancele d [id number] : 2023 0 Pharmac y Data Transac tion Service Facilit y GABAPENTIN 400MG CAP GABAPENT IN 400MG CAP Non-VA TAKE 1 CAPSULE BY MOUTH THREE TIMES A DAY May 29, 2022 Non-VA Document ed by: SHANTAL HANSON Document ed at: [facility] ORAL ACTIVE Jey HANSON 2021 [facility] LORAZEPAM (lorazepam) , 0.5 MG, TABLET, ORAL, [employer]ARM, 500 ea. BOTTLE Active [id number] 2023 120 Pharmac y Data Transac tion Service Facilit y LORAZEPAM (lorazepam) , 0.5 MG, TABLET, ORAL, [employer]ARMA, 1000 ea. BOTTLE Active [id number] 2023 120 Pharmac y Data Transac tion Service Facilit y LORAZEPAM (lorazepam) , 0.5 MG, TABLET, ORAL, [employer]ADING PHARMA, 1000 ea. BOTTLE Active [id number] 2023 120 Pharmac y Data Transac tion Service Facilit y LORAZEPAM (lorazepam) , 0.5 MG, TABLET, ORAL, [employer]ARMA, 1000 ea. BOTTLE Active [id number] 2023 120 Pharmac y Data Transac tion Service Facilit y LORAZEPAM (lorazepam) , 0.5 MG, TABLET, ORAL, [employer]ARMA, 500 ea. BOTTLE Active [id number] 2023 120 Pharmac y Data Transac tion Service Facilit y LORAZEPAM 0.5MG TAB LORAZEPA M 0.5MG TAB Non-VA TAKE ONE TABLET BY MOUTH THREE TIMES A DAY AND TAKE TWO TABLETS BY MOUTH AT BEDTIME Feb 05, 2023 Non-VA Document ed by: PIPO BARRETT Document ed at: [facility] ORAL ACTIVE Jagdish BARRETT 2022 [facility] MILK OF MAGNESIA MILK OF MAGNESIA [...] Feb 05, 2023 Non-VA Document ed by: PPIO BARRETT Document ed at: [facility] NASAL ACTIVE Jagdish BARRETT 2022 [facility] OXYCODONE HCL (OXYCODONE HCL), 10 MG, TABLET, ORAL, [employer] 100 ea. BOTTLE Active [id number] 2023 120 Pharmac y Data Transac tion Service Facilit y OXYCODONE HCL (OXYCODONE HCL), 10 MG, TABLET, ORAL, [employer] 100 ea. BOTTLE Active [id number] 2023 120 Pharmac y Data Transac tion Service Facilit y OXYCODONE HCL (OXYCODONE HCL), 10 MG, TABLET, ORAL, [employer] 100 ea. BOTTLE Active [id number] 2023 120 Pharmac y Data Transac tion Service Facilit y OXYCODONE HCL (OXYCODONE HCL), 10 MG, TABLET, ORAL, [employer] 100 ea. BOTTLE Active [id number] 2023 120 Pharmac y Data Transac tion Service Facilit y OXYCODONE HCL (OXYCODONE HCL), 10 MG, TABLET, ORAL, [employer] 100 ea. BOTTLE Active [id number] 2023 120 Pharmac y Data Transac tion Service Facilit y OXYCODONE HCL (OXYCODONE HCL), 10 MG, TABLET, ORAL, [employer] 100 ea. BOTTLE Active [id number] 2023 120 Pharmac y Data Transac tion Service Facilit y OXYCODONE HCL (OXYCODONE HCL), 10 MG, TABLET, ORAL, [employer] 100 ea. BOTTLE Active [id number] 2022 120 Pharmac y Data Transac tion Service Facilit y OXYCODONE HCL 5MG TAB OXYCODON E HCL 5MG TAB Non-VA TAKE TWO TABLETS BY MOUTH FOUR TIMES A DAY Feb 05, 2023 Non-VA Document ed by: PIPO BARRETT Document ed at: [facility] ORAL ACTIVE Jagdish BARRETT 2022 [facility] POTASSIUM CHLORIDE (potassium chloride), 10 MEQ, TAB ER PRT, ORAL, [employer], 100 ea. BOTTLE Active [id number] 2023 180 Pharmac y Data Transac tion Service Facilit y POTASSIUM CHLORIDE (potassium chloride), 10 MEQ, TAB ER PRT, ORAL, [employer], 100 ea. BOTTLE Active [id number] 2023 180 Pharmac y Data Transac tion Service Facilit y POTASSIUM CHLORIDE (potassium chloride), 20 MEQ, TAB ER PRT, ORAL, [employer] PH[employer]ACE, 100 ea. BOTTLE Active [id number] 2023 90 Pharmac y Data Transac [...] WHITLOCK&N/UNI LUIS, 30 g TUBE Cancele d [id number] : 2023 0 Pharmac y Data Transac tion Service Facilit y WARFARIN SODIUM (warfarin sodium), 5 MG, TABLET, ORAL, [employer] 1000 ea. BOTTLE Cancele d [id number] : 2022 0 Pharmac y Data Transac tion Service Facilit y WARFARIN SODIUM (WARFARIN SODIUM), 5 MG, TABLET, ORAL, [employer], 1000 ea. BOTTLE Active [id number] 2023 25 Pharmac y Data Transac tion Service Facilit y WARFARIN SODIUM (WARFARIN SODIUM), 5 MG, TABLET, ORAL, [employer] [place], 1000 ea. BOTTLE Active [id number] 2023 12 Pharmac y Data Transac tion Service Facilit y WARFARIN SODIUM (WARFARIN SODIUM), 5 MG, TABLET, ORAL, [employer] [place], 1000 ea. BOTTLE Active [id number] 2023 40 Pharmac y Data Transac tion Service Facilit y WARFARIN SODIUM (WARFARIN SODIUM), 5 MG, TABLET, ORAL, [employer] [place], 1000 ea. BOTTLE Cancele d [id number] : 2022 0 Pharmac y Data Transac tion Service Facilit y WARFARIN SODIUM (warfarin sodium), 7.5 MG, TABLET, ORAL, [employer] [place], 100 ea. BOTTLE Active [id number] 2023 51 Pharmac y Data Transac tion Service Facilit y WARFARIN SODIUM (warfarin sodium), 7.5 MG, TABLET, ORAL, [employer] [place], 100 ea. BOTTLE Active [id number] 2023 78 Pharmac y Data Transac tion Service Facilit y WARFARIN TAB WARFARIN TAB Non-VA TAKE 5MG BY MOUTH SUN/THUR S AND TAKE 7.5MG BY MOUTH ALL OTHER DAYS Feb 05, 2023 Non-VA Document ed by: PIPO BARRETT Document ed at: [facility] ORAL ACTIVE Jagdish BARRETT 2022 [facility] Allergies, Adverse Reactions, Alerts Combined list of allergies from 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 It does not include entries that were removed or entered in error. Substance Category Reaction Severity Reaction type Status Date Reported Comments Source AMOXICILLIN Propensity to adverse reactions to drug (finding) Eruption active 2 [facility] METOLAZONE Propensity to adverse reactions to drug (finding) Itching active 2 [facility] MORPHINE Propensity to adverse reactions to drug (finding) Delirium active 2 [facility] PIPERACILLIN Propensity to adverse reactions to drug (finding) Eruption active 2 [place] [facility] SULFA DRUGS Propensity to adverse reactions to drug (finding) Eruption active 2 [facility] TAZOBACTAM SODIUM Propensity to adverse reactions to drug (finding) Eruption active 2 [facility] Immunizations Combined list of available immunizations from the 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 Immunization Series Date Given Administered By Site Reaction Lot Number CVX Code Drug Costume Seamstress Status Comments Source COVID-19 (GameCrush), MRNA, LNP-S, BIVALENT, PF, 30 MCG/0.3 ML DOSE 2021 300 complet ed [facility] INFLUENZA, ADJUVANTED, QUADRIVALENT, PF 2021 205 complet ed [facility] INFLUENZA, UNSPECIFIED FORMULATION 2021 88 complet ed [employer] [facility] TD (ADULT), 5 LF TETANUS TOXOID, PRESERVATIVE FREE, ADSORBED 2021 113 complet ed [facility] INFLUENZA, ADJUVANTED, QUADRIVALENT, PF 2020 205 complet ed [facility] INFLUENZA, UNSPECIFIED FORMULATION 2020 88 complet ed [facility] COVID-19 (PFIZER), MRNA, LNP-S, PF, 30 MCG/0.3 ML DOSE 3 2020 208 complet ed [facility] COVID-19 (PFIZER), MRNA, LNP-S, PF, 30 MCG/0.3 ML DOSE 2 2020 208 complet ed [facility] COVID-19 (GameCrush), MRNA, LNP-S, PF, 30 MCG/0.3 ML DOSE 1 2020 208 complet ed [facility] INFLUENZA, ADJUVANTED, QUADRIVALENT, PF 2019 205 complet ed [facility] INFLUENZA, ADJUVANTED, TRIVALENT, PF 2018 168 complet ed [facility] INFLUENZA, ADJUVANTED, TRIVALENT, PF 2017 168 complet ed [facility] INFLUENZA, HIGH-DOSE, TRIVALENT, PF 2016 135 complet ed [facility] INFLUENZA, ADJUVANTED, TRIVALENT, PF 2016 168 complet ed [facility] INFLUENZA, HIGH-DOSE, TRIVALENT, PF 2015 135 complet ed [facility] ZOSTER LIVE 2015 121 complet ed [facility] PNEUMOCOCCAL CONJUGATE PCV 13 2014 133 complet ed [facility] INFLUENZA, HIGH-DOSE, TRIVALENT, PF 2014 135 complet ed [facility] INFLUENZA, HIGH-DOSE, TRIVALENT, PF 2013 135 complet ed [facility] INFLUENZA, UNSPECIFIED FORMULATION 2013 88 complet ed [facility] INFLUENZA, SPLIT VIRUS, TRIVALENT, PRESERVATIVE 2012 141 complet ed [facility] ZOSTER LIVE 2012 121 complet ed [facility] INFLUENZA, SPLIT VIRUS, TRIVALENT, PRESERVATIVE 2011 141 complet ed [facility] INFLUENZA, SPLIT VIRUS, TRIVALENT, PF 2010 140 complet ed [facility] PNEUMOCOCCAL POLYSACCHARID E PPV23 2010 33 complet ed [facility] TDAP 2010 115 complet ed [facility] INFLUENZA, SPLIT VIRUS, TRIVALENT, PRESERVATIVE 2009 141 complet ed [facility] NOVEL INFLUENZA-H1N 1-09, ALL FORMULATIONS 2009 128 complet ed [facility] INFLUENZA, SPLIT VIRUS, TRIVALENT, PF 2008 140 complet ed [facility] PNEUMOCOCCAL POLYSACCHARID E PPV23 2008 33 complet ed [facility] INFLUENZA, SPLIT VIRUS, TRIVALENT, PRESERVATIVE 2008 141 complet ed [facility] INFLUENZA, SPLIT VIRUS, TRIVALENT, PRESERVATIVE 2007 141 complet ed [facility] INFLUENZA, SPLIT VIRUS, TRIVALENT, PRESERVATIVE 2005 141 complet ed [facility] INFLUENZA, SPLIT VIRUS, TRIVALENT, PRESERVATIVE 2004 141 complet ed [facility] PNEUMOCOCCAL POLYSACCHARID E PPV23 2004 33 complet ed [facility] INFLUENZA, SPLIT VIRUS, TRIVALENT, PRESERVATIVE 2003 141 complet ed [facility] Results Combined list of recent [...] Reporting Lab: [facility] [phone] Performing Lab: [facility] [address] [place] [facility] CYSTATIN C WITH EGFR CYSTATIN C AND GLOMERULAR FILTRATION RATE BY CYSTATIN C-BASED FORMULA PANEL - SERUM OR PLASMA 53 60 02/13 L Specimen Type: PLASMA No comment entered. Ordering Provider: ANKUSH OBWMAN Report Released Date/Time: Feb 05, 2023 03:10 PM Reporting Lab: [facility] [phone] Performing Lab: [facility] [address] [place] [facility] BASIC METABOLI C PANEL+MG CREATININE [MASS/VOLU ME] IN SERUM OR PLASMA 0.7 mg/dL 0.7 - 1.2 02/13 Specimen Type: PLASMA No comment entered. Ordering Provider: ANKUSH BOWMAN Report Released Date/Time: Feb 05, 2023 03:10 PM Reporting Lab: [facility] [phone] Performing Lab: [facility] [phone] [place] [facility] BASIC METABOLI C PANEL+MG UREA NITROGEN [MASS/VOLU ME] IN SERUM OR PLASMA 15 mg/dL 8 - 02/13 Specimen Type: PLASMA No comment entered. Ordering Provider: ANKUSH BOWMAN Report Released Date/Time: Feb 05, 2023 03:10 PM Reporting Lab: [facility] [phone] Performing Lab: [facility] [phone] [place] [facility] BASIC METABOLI C PANEL+MG GLUCOSE [MASS/VOLU ME] IN SERUM OR PLASMA 140 mg/dL 70 - 100 02/13 H Specimen Type: PLASMA No comment entered. Ordering Provider: ANKUSH BOWMAN Report Released Date/Time: Feb 05, 2023 03:10 PM Reporting Lab: [facility] [address] Performing Lab: [facility] [phone] [place] [facility] BASIC METABOLI C PANEL+MG SODIUM [MOLES/VOL UME] IN SERUM OR PLASMA 135 mmol/L 136 - 145 02/13 L Specimen Type: PLASMA No comment entered. Ordering Provider: ANKUSH BOWMAN Report Released Date/Time: Feb 05, 2023 03:10 PM Reporting Lab: [facility] [phone] Performing Lab: [facility] [phone] [place] [facility] BASIC METABOLI C PANEL+MG POTASSIUM [MOLES/VOL UME] IN SERUM OR PLASMA 4.0 mmol/L 3.5 - 5.1 02/13 Specimen Type: PLASMA No comment entered. Ordering Provider: ANKUSH BOWMAN Report Released Date/Time: Feb 05, 2023 03:10 PM Reporting Lab: [facility] [phone] Performing Lab: [facility] [address] [place] [facility] BASIC METABOLI C PANEL+MG CHLORIDE [MOLES/VOL UME] IN SERUM OR PLASMA 99 mmol/L 98 - 107 02/13 Specimen Type: PLASMA No comment entered. Ordering Provider: ANKUSH BOWMAN Report Released Date/Time: Feb 05, 2023 03:10 PM Reporting Lab: [facility] [address] Performing Lab: [facility] [phone] [place] [facility] BASIC METABOLI C PANEL+MG CARBON DIOXIDE, TOTAL [MOLES/VOL UME] IN SERUM OR PLASMA 29 mmol/L 22 - 29 02/13 Specimen Type: PLASMA No comment entered. Ordering Provider: ANKUSH BOWMAN Report Released Date/Time: Feb 05, 2023 03:10 PM Reporting Lab: [facility] [phone] Performing Lab: [facility] [address] [place] [facility] BASIC METABOLI C PANEL+MG CALCIUM [MASS/VOLU ME] IN SERUM OR PLASMA 9.2 mg/dL 8.4 - 10.2 02/13 Specimen Type: PLASMA No comment entered. Ordering Provider: ANKUSH BOWMAN Report Released Date/Time: Feb 05, 2023 03:10 PM Reporting Lab: [facility] [address] Performing Lab: [facility] [address] [place] [facility] BASIC METABOLI C PANEL+MG MAGNESIUM [MASS/VOLU ME] IN SERUM OR PLASMA 2.0 mg/dL 1.6 - 2.6 02/13 Specimen Type: PLASMA No comment entered. Ordering Provider: ANKUSH BOWMAN Report Released Date/Time: Feb 05, 2023 03:10 PM Reporting Lab: [facility] [phone] Performing Lab: [facility] [address] [place] [facility] BASIC METABOLI C PANEL+MG ANION GAP IN SERUM OR PLASMA 7 mmol/L 5 - 15 02/13 Specimen Type: PLASMA No comment entered. Ordering Provider: ANKUSH BOWMAN Report Released Date/Time: Feb 05, 2023 03:10 PM Reporting Lab: [facility] [address] Performing Lab: [facility] [address] [place] [facility] BASIC METABOLI C PANEL+MG GLOMERULAR FILTRATION RATE/1.73 SQ M.PREDICTE D [VOLUME RATE/AREA] IN SERUM, PLASMA OR BLOOD BY CREATININE -BASED FORMULA (CKD-EPI) >90 60 02/13 Specimen Type: PLASMA No comment entered. Ordering Provider: ANKUSH BOWMAN Report Released Date/Time: Feb 05, 2023 03:10 PM Reporting Lab: [facility] [phone] Performing Lab: [facility] [address] [place] [facility] URINALYS IS COLOR OF URINE YELLOW 10/08 Specimen Type: URINE No comment entered. Ordering Provider: ANKUSH BOWMAN Report Released Date/Time: Sep 24, 2022 01:55 PM Reporting Lab: [facility] [phone] Performing Lab: [facility] [address] [place] [facility] URINALYS IS SPECIFIC GRAVITY OF URINE 1.023 1.003 - 1.035 10/08 Specimen Type: URINE No comment entered. Ordering Provider: ANKUSH BOWMAN Report Released Date/Time: Sep 24, 2022 01:55 PM Reporting Lab: [facility] [address] Performing Lab: [facility] [address] [place] [facility] URINALYS IS BILIRUBIN. TOTAL [PRESENCE] IN URINE BY TEST STRIP NEGATIVE 10/08 Specimen Type: URINE No comment entered. Ordering Provider: ANKUSH BOWMAN Report Released Date/Time: Sep 24, 2022 01:55 PM Reporting Lab: [facility] [id number] Performing Lab: [facility] [id number] [place] [facility] URINALYS IS KETONES [MASS/VOLU ME] IN URINE BY TEST STRIP NEGATIVE 10/08 Specimen Type: URINE No comment entered. Ordering Provider: ANKUSH BOWMAN Report Released Date/Time: Sep 24, 2022 01:55 PM Reporting Lab: [facility] [id number] Performing Lab: [facility] [id number] [place] [facility] URINALYS IS GLUCOSE [MASS/VOLU ME] IN URINE BY TEST STRIP NEGATIVE mg/dL <30 - 30 10/08 Specimen Type: URINE No comment entered. Ordering Provider: ANKUSH BOWMAN Report Released Date/Time: Sep 24, 2022 01:55 PM Reporting Lab: [facility] [facility] [address] Performing Lab: [facility] [address] [place] [facility] URINALYS IS PROTEIN [MASS/VOLU ME] IN URINE BY TEST STRIP 30 mg/dL <20 - 20 10/08 Specimen Type: URINE No comment entered. Ordering Provider: ANKUSH BOWMAN Report Released Date/Time: Sep 24, 2022 01:55 PM Reporting Lab: [facility] [address] Performing Lab: [facility] [address] [place] [facility] URINALYS IS PH OF URINE BY TEST STRIP 7.5 5.0 - 8.0 10/08 Specimen Type: URINE No comment entered. Ordering Provider: ANKUSH BOWMAN Report Released Date/Time: Sep 24, 2022 01:55 PM Reporting Lab: [facility] [address] Performing Lab: [facility] [address] [place] [facility] URINALYS IS LEUKOCYTES [#/AREA] IN URINE SEDIMENT BY MICROSCOPY HIGH POWER FIELD >180/[HP F] 0 - 7 10/08 H Specimen Type: URINE No comment entered. Ordering Provider: ANKUSH BOWMAN Report Released Date/Time: Sep 24, 2022 01:55 PM Reporting Lab: [facility] [address] Performing Lab: [facility] [address] [place] [facility] URINALYS IS BACTERIA [PRESENCE] IN URINE SEDIMENT BY LIGHT MICROSCOPY MANY 10/08 Specimen Type: URINE No comment entered. Ordering Provider: ANKUSH BOWMAN Report Released Date/Time: Sep 24, 2022 01:55 PM Reporting Lab: [facility] [address] Performing Lab: [facility] [address] [facility] ERYTHROCYT ES [#/AREA] IN URINE SEDIMENT BY MICROSCOPY HIGH POWER FIELD 33 /[HPF] 0 - 3 10/08 H Specimen Type: URINE No comment entered. Ordering Provider: ANKUSH BOWMAN Report Released Date/Time: Sep 24, 2022 01:55 PM Reporting Lab: [facility] [address] Performing Lab: [facility] [address] [facility] APPEARANCE OF URINE EX.TURBI D 10/08 Specimen Type: URINE No comment entered. Ordering Provider: ANKUSH BOWMAN Report Released Date/Time: Sep 24, 2022 01:55 PM Reporting Lab: [facility] [address] Performing Lab: [facility] [address] [place] [facility] URINALYS IS EPITHELIAL CELLS.SQUA MOUS [#/AREA] IN URINE SEDIMENT BY MICROSCOPY HIGH POWER FIELD 1 /[HPF] 10/08 Specimen Type: URINE No comment entered. Ordering Provider: ANKUSH BOWMAN Report Released Date/Time: Sep 24, 2022 01:55 PM Reporting Lab: [facility] [address] Performing Lab: [facility] [address] [place] [facility] URINALYS IS HEMOGLOBIN [PRESENCE] IN URINE BY TEST STRIP 1+ 10/08 Specimen Type: URINE No comment entered. Ordering Provider: ANKUSH BOWMAN Report Released Date/Time: Sep 24, 2022 01:55 PM Reporting Lab: [facility] [address] Performing Lab: [facility] [address] [place] [facility] URINALYS IS NITRITE [PRESENCE] IN URINE BY TEST STRIP NEGATIVE 10/08 Specimen Type: URINE No comment entered. Ordering Provider: ANKUSH BOWMAN Report Released Date/Time: Sep 24, 2022 01:55 PM Reporting Lab: [facility] [address] Performing Lab: [facility] [address] [place] [facility] URINALYS IS LEUKOCYTE CLUMPS [#/VOLUME] IN URINE BY AUTOMATED COUNT PRESENT 10/08 Specimen Type: URINE No comment entered. Ordering Provider: ANKUSH BOWMAN Report Released Date/Time: Sep 24, 2022 01:55 PM Reporting Lab: [facility] [address] Performing Lab: [facility] [address] [place] [facility] URINALYS IS LEUKOCYTE ESTERASE [PRESENCE] IN URINE BY TEST STRIP 500 10/08 Specimen Type: URINE No comment entered. Ordering Provider: ANKUSH BOWMAN Report Released Date/Time: Sep 24, 2022 01:55 PM Reporting Lab: [facility] [address] Performing Lab: [facility] [address] [place] [facility] ALBUMIN ALBUMIN [MASS/VOLU ME] IN SERUM OR PLASMA 4.2 g/dL 3.5 - 5.2 10/08 Specimen Type: PLASMA No comment entered. Ordering Provider: ANKUSH BOWMAN Report Released Date/Time: Sep 24, 2022 01:55 PM Reporting Lab: [facility] [address] Performing Lab: [facility] [address] [place] [facility] PRE-ALBU MIN PREALBUMIN [MASS/VOLU ME] IN SERUM OR PLASMA 28.4 mg/dL 14.0 - 45.0 10/08 Specimen Type: SERUM No comment entered. Ordering Provider: ANKUSH BOWMAN Report Released Date/Time: Sep 24, 2022 01:55 PM Reporting Lab: [facility] [address] Performing Lab: [facility] [address] [place] [facility] CBC & DIFF LEUKOCYTES [#/VOLUME] IN BLOOD BY AUTOMATED COUNT 7.32 10*3/uL 4.0 - 11.0 10/08 Specimen Type: BLOOD Comment: Automated Differentia l Performed Ordering Provider: ANKUSH BOWMAN Report Released Date/Time: Sep 24, 2022 01:55 PM Reporting Lab: [facility] [address] Performing Lab: [facility] [address] [place] [facility] CBC & DIFF ERYTHROCYT ES [#/VOLUME] IN BLOOD BY AUTOMATED COUNT 4.80 10*6/uL 4.6 - 6.2 10/08 Specimen Type: BLOOD Comment: Automated Differentia l Performed Ordering Provider: ANKUSH BOWMAN Report Released Date/Time: Sep 24, 2022 01:55 PM Reporting Lab: [facility] [address] Performing Lab: [facility] [address] [place] [facility] CBC & DIFF HEMOGLOBIN [MASS/VOLU ME] IN BLOOD 14.7 g/dL 13.5 - 17.9 10/08 Specimen Type: BLOOD Comment: Automated Differentia l Performed Ordering Provider: ANKUSH BOWMAN Report Released Date/Time: Sep 24, 2022 01:55 PM Reporting Lab: [facility] [address] Performing Lab: [facility] [address] [place] [facility] CBC & DIFF HEMATOCRIT [VOLUME FRACTION] OF BLOOD BY AUTOMATED COUNT 44.2 41 - 54 10/08 Specimen Type: BLOOD Comment: Automated Differentia l Performed Ordering Provider: ANKUSH BOWMAN Report Released Date/Time: Sep 24, 2022 01:55 PM Reporting Lab: [facility] [address] Performing Lab: [facility] [address] [place] [facility] CBC & DIFF MCV [ENTITIC VOLUME] BY AUTOMATED COUNT 92.1 fL 80 - 100 10/08 Specimen Type: BLOOD Comment: Automated Differentia l Performed Ordering Provider: ANKUSH BOWMAN Report Released Date/Time: Sep 24, 2022 01:55 PM Reporting Lab: [facility] [address] Performing Lab: [facility] [address] [place] [facility] CBC & DIFF MCH [ENTITIC MASS] BY AUTOMATED COUNT 30.6 pg 27 - 33 10/08 Specimen Type: BLOOD Comment: Automated Differentia l Performed Ordering Provider: ANKUSH BOWMAN Report Released Date/Time: Sep 24, 2022 01:55 PM Reporting Lab: [facility] [address] Performing Lab: [facility] [address] [place] [facility] CBC & DIFF MCHC [MASS/VOLU ME] BY AUTOMATED COUNT 33.3 g/dL 32.0 - 37.5 10/08 Specimen Type: BLOOD Comment: Automated Differentia l Performed Ordering Provider: ANKUSH BOWMAN Report Released Date/Time: Sep 24, 2022 01:55 PM Reporting Lab: [facility] [address] Performing Lab: [facility] [address] [place] [facility] CBC & DIFF PLATELETS [#/VOLUME] IN BLOOD BY AUTOMATED COUNT 144 10*3/uL 150 - 400 10/08 L Specimen Type: BLOOD Comment: Automated Differentia l Performed Ordering Provider: ANKUSH BOWMAN Report Released Date/Time: Sep 24, 2022 01:55 PM Reporting Lab: [facility] [address] Performing Lab: [facility] [address] [place] [facility] CBC & DIFF PLATELET MEAN VOLUME [ENTITIC VOLUME] IN BLOOD BY AUTOMATED COUNT 10.8 fL 7.4 - 10.4 10/08 H Specimen Type: BLOOD Comment: Automated Differentia l Performed Ordering Provider: ANKUSH BOWMAN Report Released Date/Time: Sep 24, 2022 01:55 PM Reporting Lab: [facility] [address] Performing Lab: [facility] [address] [place] [facility] CBC & DIFF NEUTROPHIL S/100 LEUKOCYTES IN BLOOD BY MANUAL COUNT 55.5 10/08 Specimen Type: BLOOD Comment: Automated Differentia l Performed Ordering Provider: ANKUSH BOWMAN Report Released Date/Time: Sep 24, 2022 01:55 PM Reporting Lab: [facility] [address] Performing Lab: [facility] [address] [place] [facility] CBC & DIFF LYMPHOCYTE S/100 LEUKOCYTES IN BLOOD BY MANUAL COUNT 31.4 10/08 Specimen Type: BLOOD Comment: Automated Differentia l Performed Ordering Provider: ANKUSH BOWMAN Report Released Date/Time: Sep 24, 2022 01:55 PM Reporting Lab: [facility] [address] Performing Lab: [facility] [address] [place] [facility] CBC & DIFF MONOCYTES/ 100 LEUKOCYTES IN BLOOD BY AUTOMATED COUNT 10.2 10/08 Specimen Type: BLOOD Comment: Automated Differentia l Performed Ordering Provider: ANKUSH BOWMAN Report Released Date/Time: Sep 24, 2022 01:55 PM Reporting Lab: [facility] [address] Performing Lab: [facility] [address] [place] [facility] CBC & DIFF EOSINOPHIL S/100 LEUKOCYTES IN BLOOD BY AUTOMATED COUNT 2.2 10/08 Specimen Type: BLOOD Comment: Automated Differentia l Performed Ordering Provider: ANKUSH BOWMAN Report Released Date/Time: Sep 24, 2022 01:55 PM Reporting Lab: [facility] [address] Performing Lab: [facility] [address] [place] [facility] CBC & DIFF BASOPHILS/ 100 LEUKOCYTES IN BLOOD BY MANUAL COUNT 0.4 10/08 Specimen Type: BLOOD Comment: Automated Differentia l Performed Ordering Provider: ANKUSH BOWMAN Report Released Date/Time: Sep 24, 2022 01:55 PM Reporting Lab: [facility] [address] Performing Lab: [facility] [address] [place] [facility] CBC & DIFF ERYTHROCYT E DISTRIBUTI ON WIDTH [RATIO] BY AUTOMATED COUNT 15.9 11.5 - 14.5 10/08 H Specimen Type: BLOOD Comment: Automated Differentia l Performed Ordering Provider: ANKUSH BOWMAN Report Released Date/Time: Sep 24, 2022 01:55 PM Reporting Lab: [facility] [address] Performing Lab: [facility] [address] [place] [facility] CBC & DIFF LYMPHOCYTE S [#/VOLUME] IN BLOOD BY AUTOMATED COUNT 2.30 10*3/uL 1.0 - 4.0 10/08 Specimen Type: BLOOD Comment: Automated Differentia l Performed Ordering Provider: ANKUSH BOWMAN Report Released Date/Time: Sep 24, 2022 01:55 PM Reporting Lab: [facility] [address] Performing Lab: [facility] [address] [place] [facility] CBC & DIFF MONOCYTES [#/VOLUME] IN BLOOD BY AUTOMATED COUNT 0.75 10*3/uL 0.1 - 1.0 10/08 Specimen Type: BLOOD Comment: Automated Differentia l Performed Ordering Provider: ANKUSH BOWMAN Report Released Date/Time: Sep 24, 2022 01:55 PM Reporting Lab: [facility] [address] Performing Lab: [facility] [address] [place] [facility] CBC & DIFF NEUTROPHIL S [#/VOLUME] IN BLOOD BY AUTOMATED COUNT 4.06 10*3/uL 2.0 - 7.7 10/08 Specimen Type: BLOOD Comment: Automated Differentia l Performed Ordering Provider: ANKUSH BOWMAN Report Released Date/Time: Sep 24, 2022 01:55 PM Reporting Lab: [facility] [address] Performing Lab: [facility] [address] [place] [facility] CBC & DIFF EOSINOPHIL S [#/VOLUME] IN BLOOD BY AUTOMATED COUNT 0.16 10*3/uL 0 - 0.5 10/08 Specimen Type: BLOOD Comment: Automated Differentia l Performed Ordering Provider: ANKUSH BOWMAN Report Released Date/Time: Sep 24, 2022 01:55 PM Reporting Lab: [facility] [address] Performing Lab: [facility] [address] [place] [facility] CBC & DIFF BASOPHILS [#/VOLUME] IN BLOOD BY AUTOMATED COUNT 0.03 10*3/uL 0 - 0.2 10/08 Specimen Type: BLOOD Comment: Automated Differentia l Performed Ordering Provider: ANKUSH BOWMAN Report Released Date/Time: Sep 24, 2022 01:55 PM Reporting Lab: [facility] [address] Performing Lab: [facility] [address] [place] [facility] CBC & DIFF IG(META,MY MALACHI,PRO) 0.3 10/08 Specimen Type: BLOOD Comment: Automated Differentia l Performed Ordering Provider: ANKUSH BOWMAN Report Released Date/Time: Sep 24, 2022 01:55 PM Reporting Lab: [facility] [address] Performing Lab: [facility] [address] [place] [facility] CBC & DIFF IMMATURE GRANULOCYT ES [PRESENCE] IN BLOOD BY AUTOMATED COUNT 0.02 10*3/uL 0 - 0.1 10/08 Specimen Type: BLOOD Comment: Automated Differentia l Performed Ordering Provider: ANKUSH BOWMAN Report Released Date/Time: Sep 24, 2022 01:55 PM Reporting Lab: [facility] [address] Performing Lab: [facility] [address] [place] [facility] COMPREHE NSIVE METABOLI C PANEL+MG CREATININE [MASS/VOLU ME] IN SERUM OR PLASMA 0.7 mg/dL 0.7 - 1.2 10/08 Specimen Type: PLASMA No comment entered. Ordering Provider: ANKUSH BOWMAN Report Released Date/Time: Sep 24, 2022 01:55 PM Reporting Lab: [facility] [address] Performing Lab: [facility] [address] [place] [facility] COMPREHE NSIVE METABOLI C PANEL+MG UREA NITROGEN [MASS/VOLU ME] IN SERUM OR PLASMA 16 mg/dL 8 - 26 10/08 Specimen Type: PLASMA No comment entered. Ordering Provider: ANKUSH BOWMAN Report Released Date/Time: Sep 24, 2022 01:55 PM Reporting Lab: [facility] [address] Performing Lab: [facility] [address] [place] [facility] COMPREHE NSIVE METABOLI C PANEL+MG GLUCOSE [MASS/VOLU ME] IN SERUM OR PLASMA 94 mg/dL 70 - 100 10/08 Specimen Type: PLASMA No comment entered. Ordering Provider: ANKUSH BOWMAN Report Released Date/Time: Sep 24, 2022 01:55 PM Reporting Lab: [facility] [address] Performing Lab: [facility] [address] [place] [facility] COMPREHE NSIVE METABOLI C PANEL+MG SODIUM [MOLES/VOL UME] IN SERUM OR PLASMA 138 mmol/L 136 - 145 10/08 Specimen Type: PLASMA No comment entered. Ordering Provider: ANKUSH BOWMAN Report Released Date/Time: Sep 24, 2022 01:55 PM Reporting Lab: [facility] [address] Performing Lab: [facility] [address] [place] [facility] COMPREHE NSIVE METABOLI C PANEL+MG POTASSIUM [MOLES/VOL UME] IN SERUM OR PLASMA 3.9 mmol/L 3.5 - 5.1 10/08 Specimen Type: PLASMA No comment entered. Ordering Provider: ANKUSH BOWMAN Report Released Date/Time: Sep 24, 2022 01:55 PM Reporting Lab: [facility] [address] Performing Lab: [facility] [address] [place] [facility] COMPREHE NSIVE METABOLI C PANEL+MG CHLORIDE [MOLES/VOL UME] IN SERUM OR PLASMA 101 mmol/L 98 - 107 10/08 Specimen Type: PLASMA No comment entered. Ordering Provider: ANKUSH BOWMAN Report Released Date/Time: Sep 24, 2022 01:55 PM Reporting Lab: [facility] [address] Performing Lab: [facility] [address] [place] [facility] COMPREHE NSIVE METABOLI C PANEL+MG CARBON DIOXIDE, TOTAL [MOLES/VOL UME] IN SERUM OR PLASMA 28 mmol/L 22 - 29 10/08 Specimen Type: PLASMA No comment entered. Ordering Provider: ANKUSH BOWMAN Report Released Date/Time: Sep 24, 2022 01:55 PM Reporting Lab: [facility] [address] Performing Lab: [facility] [address] [place] [facility] COMPREHE NSIVE METABOLI C PANEL+MG CALCIUM [MASS/VOLU ME] IN SERUM OR PLASMA 9.7 mg/dL 8.4 - 10.2 10/08 Specimen Type: PLASMA No comment entered. Ordering Provider: ANKUSH BOWMAN Report Released Date/Time: Sep 24, 2022 01:55 PM Reporting Lab: [facility] [address] Performing Lab: [facility] [address] [place] [facility] COMPREHE NSIVE METABOLI C PANEL+MG PROTEIN [MASS/VOLU ME] IN SERUM OR PLASMA 7.6 g/dL 6.0 - 8.3 10/08 Specimen Type: PLASMA No comment entered. Ordering Provider: ANKUSH BOWMAN Report Released Date/Time: Sep 24, 2022 01:55 PM Reporting Lab: [facility] [address] Performing Lab: [facility] [address] [place] [facility] COMPREHE NSIVE METABOLI C PANEL+MG ALBUMIN [MASS/VOLU ME] IN SERUM OR PLASMA 4.2 g/dL 3.5 - 5.2 10/08 Specimen Type: PLASMA No comment entered. Ordering Provider: ANKUSH BOWMAN Report Released Date/Time: Sep 24, 2022 01:55 PM Reporting Lab: [facility] [address] Performing Lab: [facility] [address] [place] [facility] COMPREHE NSIVE METABOLI C PANEL+MG BILIRUBIN. TOTAL [MASS/VOLU ME] IN SERUM OR PLASMA 0.6 mg/dL 0.2 - 1.2 10/08 Specimen Type: PLASMA No comment entered. Ordering Provider: ANKUSH BOWMAN Report Released Date/Time: Sep 24, 2022 01:55 PM Reporting Lab: [facility] [address] Performing Lab: [facility] [address] [facility] COMPREHE NSIVE METABOLI C PANEL+MG MAGNESIUM [MASS/VOLU ME] IN SERUM OR PLASMA 2.1 mg/dL 1.6 - 2.6 10/08 Specimen Type: PLASMA No comment entered. Ordering Provider: ANKUSH BOWMAN Report Released Date/Time: Sep 24, 2022 01:55 PM Reporting Lab: [facility] [address] Performing Lab: [facility] [address] [facility] COMPREHE NSIVE METABOLI C PANEL+MG ANION GAP IN SERUM OR PLASMA 9 mmol/L 5 - 15 10/08 Specimen Type: PLASMA No comment entered. Ordering Provider: ANKUSH BOWMAN Report Released Date/Time: Sep 24, 2022 01:55 PM Reporting Lab: [facility] [address] Performing Lab: [facility] [address] [facility] COMPREHE NSIVE METABOLI C PANEL+MG ALKALINE PHOSPHATAS E [ENZYMATIC ACTIVITY/V OLUME] IN SERUM OR PLASMA 96 U/L 40 - 150 10/08 Specimen Type: PLASMA No comment entered. Ordering Provider: ANKUSH BOWMAN Report Released Date/Time: Sep 24, 2022 01:55 PM Reporting Lab: [facility] [address] Performing Lab: [facility] [address] [place] [facility] COMPREHE NSIVE METABOLI C PANEL+MG ALANINE AMINOTRANS FERASE [ENZYMATIC ACTIVITY/V OLUME] IN SERUM OR PLASMA 29 U/L <55 - 55 10/08 Specimen Type: PLASMA No comment entered. Ordering Provider: ANKUSH BOWMAN Report Released Date/Time: Sep 24, 2022 01:55 PM Reporting Lab: [facility] [address] Performing Lab: [facility] [address] [place] [facility] COMPREHE NSIVE METABOLI C PANEL+MG ASPARTATE AMINOTRANS FERASE [ENZYMATIC ACTIVITY/V OLUME] IN SERUM OR PLASMA 22 U/L <34 - 34 10/08 Specimen Type: PLASMA No comment entered. Ordering Provider: ANKUSH BOWMAN Report Released Date/Time: Sep 24, 2022 01:55 PM Reporting Lab: [facility] [address] Performing Lab: [facility] [address] [place] [facility] COMPREHE NSIVE METABOLI C PANEL+MG GLOMERULAR FILTRATION RATE/1.73 SQ M.PREDICTE D [VOLUME RATE/AREA] IN SERUM, PLASMA OR BLOOD BY CREATININE -BASED FORMULA (CKD-EPI) >90 60 10/08 Specimen Type: PLASMA No comment entered. Ordering Provider: ANKUSH BOWMAN Report Released Date/Time: Sep 24, 2022 01:55 PM Reporting Lab: [facility] [address] Performing Lab: [facility] [address] [place] [facility] CYSTATIN C WITH EGFR CYSTATIN C [MASS/VOLU ME] IN SERUM OR PLASMA 1.38 mg/L 0.51 - 1.05 10/08 H Specimen Type: PLASMA No comment entered. Ordering Provider: ANKUSH BOWMAN Report Released Date/Time: Sep 24, 2022 01:55 PM Reporting Lab: [facility] [address] Performing Lab: [facility] [address] [place] [facility] CYSTATIN C WITH EGFR CYSTATIN C AND GLOMERULAR FILTRATION RATE BY CYSTATIN-B ASED FORMULA PANEL - SERUM OR PLASMA 48 60 10/08 L Specimen Type: PLASMA No comment entered. Ordering Provider: ANKUSH BOWMAN Report Released Date/Time: Sep 24, 2022 01:55 PM Reporting Lab: [facility] [address] Performing Lab: [facility] [address] [place] [facility] VIT D 25-OH,TO ZAMZAM 25-HYDROXY VITAMIN D3 [MASS/VOLU ME] IN SERUM OR PLASMA 54 ng/mL 12 - 50 10/08 H Specimen Type: SERUM No comment entered. Ordering Provider: ANKUSH BOWMAN Report Released Date/Time: Sep 24, 2022 01:55 PM Reporting Lab: [facility] [address] Performing Lab: [facility] [address] [facility] Encounters Combined list of: 1) Encounters from Department of [facility] Affairs facilities going back up to thelast 18 months. 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 Location Location Details Encounter Type Encounter Number Reason For Visit Attending Provider ADM Date DC Date Status Disposition Source [facility] DIABETIC MANAGEMENT PROGRAM, [id number] Diagnos is: ICD-10- CM G82.20 Paraple mary kay, unspeci fied
TIGIST BASSETT 01/30 [facility] Outpatient Encounter [id number] 02/05 [facility] MTMS BY PHARM ADDL 15 MIN [id number] Diagnos is: ICD-10- CM G82.20 Paraple mary kay, unspeci fied
MANPREET BARRETT 02/05 [facility] OT EVAL LOW COMPLEX 30 MIN [id number] Diagnos is: ICD-10- CM Z73.6 Limitat ion of activit ies due to disabil ity<br/ > Bryn PARDO 02/05 [facility] OFF/OP EST MARCH X REQ PHY/QHP [id number] Diagnos is: ICD-10- CM G82.20 Paraple mary kay, unspeci fied
ASHAARIAMARISOLJagdish Miranda 02/05 [facility] PSYCH DIAGNOSTIC EVALUATION [phone] Diagnos is: ICD-10- CM F32.A Depress ion, unspeci fied
BINU GAMEZ 02/05 [facility] OFFICE O/P EST MOD 30-39 MIN [phone] Diagnos is: ICD-10- CM G82.20 Paraple mary kay, unspeci fied
ME LOGAN BOWMAN 02/05 [facility] PSYCH DIAGNOSTIC EVALUATION [phone] Diagnos is: ICD-10- CM G82.20 Paraple mary kay, unspeci fied
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
VIOLA YOON 02/08 [facility] OFFICE O/P EST HI 40-54 MIN [phone] Diagnos is: ICD-10- CM G82.20 Paraple mary kay, unspeci fied
ME LOGAN BOWMAN 02/13 [facility] WHEELCHAIR MNGMENT TRAINING [phone] Diagnos is: ICD-10- CM Z73.6 Limitat ion of activit ies due to disabil ity<br/ > BOUSLOG,RY AN P 02/13 [place] [facility] [place] [facility] Outpatient Encounter [id number] 02/19 [place] [facility] [place] [facility] HC PRO PHONE CALL 11-20 MIN 86603-9.61 [phone] Diagnos is: ICD-10- CM Z73.6 Limitat ion of activit ies due to disabil ity<br/ > BOUSLOG,RY AN P 04/23 [place] [facility] [place] [facility] [facility] En[facility] [id number] 04/24 [place] [facility] [place] [facility] Outpatient Encounter [id number] 05/24 [place] [facility] [place] [facility] OFF/OP EST MARCH X REQ PHY/QHP [id number] Diagnos is: ICD-10- CM G82.20 Paraple mary kay, unspeci fied
VIOLA YOON NDJagdish 05[facility]28 [facility] [place] [facility] WHEELCHAIR MNGMENT TRAINING [id number] Diagnos is: ICD-10- CM Z73.6 Limitat ion of activit ies due to disabil ity<br/ > BOUSLOG,RY AN P 06/10 [place] [facility] [place] [facility] Outpatient Encounter [id number] 10/28 [place] [facility] [place] [facility] Outpatient Encounter [id number] 11/20 [place] [facility] [place] [facility] Out[facility] Encounter [id number] 05/12 [place] [facility] [facility] [place] [facility] Out[facility] Encounter [id number] 07/23 [place] [facility] [facility] [place] [facility] Outpatient Encounter [id number] DEE ANDERSI 07/28 [facility] Social History Combined list of available smoking, tobacco, and other social history from 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 Social History Type Response Date Comment Sour e Tobacco smoking status [facility]-TOBACCO NEVER USED 05/28/20 [facility] This section is an empty social history section. [facility] Advance Directives List of completed, amended, or rescinded Advance Directives on record at Department of 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 An actual copy of the Directive is not included. Date Advance Directive Provider Source 02/05/2023 ADVANCE DIRECTIVE DISCUSSION [facility]
--- OUTSIDE RECORDS SUMMARY | 2024-08-10 12:52 | XMS_ITS ---
Author Organization [facility] Address [address], [place] [address] Care Team Providers Care Road Gang Supervisor Name Role Phone Franklin Squires [...] 0 06/10/2014 History of anticoagulant therapy 02/17/2014 terminologist current use of anticoagulant therapy 0 02/17/2014 [...] treatments are documented for this patient in [facility]. Treatments may have been administered in another system. Resolved Problems Problem Noted Date Diagnosed Date Resolved Date Gait abnormality 01/17/2012 02/09/2015 Back pain 01/17/2012 02/09/2015 Paraplegia 04/04/2011 02/09/2015 Osteoporosis 03/06/2011 02/09/2015 Urinary tract infection 12/24/200603/11
--- OUTSIDE RECORDS SUMMARY | 2024-08-10 12:52 | XMS_ITS | Encounter Summary ---
Author Organization Formerly [facility] [address] [address] Care Team Providers Care Oil Rag Washer Name Role Phone Franklin Squires MD Primary Care Provider Encounter Details Date Type Department Care Team (Late st Contact Info) Description 07/08/2015 Correspondence [facility] Physical Therapy [address] [place] [address] Trudi Raymundo, PT [address] [place] [address] ADDENDUM FOR LETTER OF MEDICAL NECESSITY Social [...] filedocumented in this encounter Care Teams Oil Rag Washer Relationship Specialty Start Date End Date Franklin Squires MD [address] [facility] [address] PCP - General Family Practice 03/08/16 documented as of this encounter
--- OUTSIDE RECORDS SUMMARY | 2024-08-10 12:52 | XMS_ITS | Encounter Summary ---
Author Organization [facility] Address [address], [place] [address] Care Team Providers Care Bone Crusher Name Role Phone Franklin Squires MD Primary Care Provider [phone] Encounter Details Date Type Department Care Team (Latest Contact Info) Description 06/04/2014 Correspondence [facility] 401 Interventional Pain Management 401 [place] [address] Zelalem Cohen, DO [address] [place] [address] MEDICAID PT INFORMATION EMPI RECOVERY Social History [...] on filedocumented in this encounter Care Teams Bone Crusher Relationship Specialty Start Date End Date Franklin Squires MD 100 [facility] [place] [address] PCP - General Family Practice 03/08/16 documented as of this encounter
--- OUTSIDE RECORDS SUMMARY | 2024-08-10 12:52 | XMS_ITS | Encounter Summary ---
Author Organization [facility] [address], [place] [address] Care Team Providers Care Composing Room Machinist Name Role Phone Franklin Squires MD Primary Care Provider Encounter Details Date Type Department Care Team (Late st Contact Info) Description 02/05/2014 Correspondence [facility] Physical Therapy [address] [place] [address] Trudi Raymundo, PT [address] [place] [address] LETTER OF MEDICAL NECESSITY FOR A WHEELCHAIR [...] on filedocumented in this encounter Care Teams Composing Room Machinist Relationship Specialty Start Date End Date Franklin Squires MD 100 [facility] [place] [address] PCP - General Family Practice 03/08/16 documented as of this encounter
--- OUTSIDE RECORDS SUMMARY | 2024-08-10 12:52 | XMS_ITS | Encounter Summary ---
Author Organization [facility] Address [address] [address] Care Team Providers Care Electronic Masking System Operator Name Role Phone Franklin Squires MD Primary Care Provider [phone] Encounter Details Date Type Department Care Team (Late st Contact Info) Description 01/06/2016 Correspondence [facility] Radiology [address] [place] [address] Radiology, Provider MRI SAFETY SHEET AND COMPATIBILITY [...] filedocumented in this encounter Care Teams Electronic Masking System Operator Relationship Specialty Start Date End Date Franklin Squires MD [address] [place], [place] [address] [address] PCP - General Family Practice 03/08/16 documented as of this encounter
--- OUTSIDE RECORDS SUMMARY | 2024-08-10 12:52 | XMS_ITS | Encounter Summary ---
Author Organization [facility] [address] [address] Care Team Providers Care Manager State Name Role Phone Franklin Squires MD Primary Care Provider Encounter Details Date Type Department Care Team (Late st Contact Info) Description 11/10/2014 Correspondence [facility] Physical Therapy [address] [place] [address] Trudi Raymundo, PT [address] [place] [address] LETTER OF MEDICAL NECESSITY Social History Tobacco [...] filedocumented in this encounter Care Teams Manager State Relationship Specialty Start Date End Date Franklin Squires MD 100 [facility] [place] [address] PCP - General Family Practice 03/08/16 documented as of this encounter
--- OUTSIDE RECORDS SUMMARY | 2024-08-10 12:52 | XMS_ITS | Encounter Summary ---
Author Organization [facility] Address [address] [address] Care Team Providers Care Failure Analysis Engineer Name Role Phone Franklin Squires MD Primary Care Provider Encounter Details Date Type Department Care Team (Late st Contact Info) Description 06/07/2015 Correspondence [facility] Radiology [address] [place] [address] Radiology, Provider MRI SAFETY SHEET AND COMPATIBILITY [...] on filedocumented in this encounter Care Teams Failure Analysis Engineer Relationship Specialty Start Date End Date Franklin Squires MD [address] [place], [place] [address] [address] PCP - General Family Practice 03/08/16 documented as of this encounter
--- OUTSIDE RECORDS SUMMARY | 2024-08-10 12:52 | XMS_ITS | Encounter Summary ---
Author Organization [facility] [address] [address] Care Team Providers Care C Iron Worker Name Role Phone Franklin Squires MD Primary Care Provider [phone] Encounter Details Date Type Department Care Team (Late st Contact Info) Description 10/26/2013 Correspondence [facility] Physical Therapy [address] [place] [address] Trudi Raymundo, PT [address] [place] [address] LETTER OF MEDICAL NECESSITY Social History Tobacco [...] Raymundo, PT - 10/26/2013 12:00 AM CST ICE DESK ASSOCIATE documented in this encounter Plan of Treatment Not on file documented as of this encounter Visit Diagnoses Not on filedocumented in this encounter Care Teams C Iron Worker Relationship Specialty Start Date End Date Franklin Squires MD 100 [facility] [place] [address] PCP - General Family Practice 03/08/16 documented as of this encounter
--- OUTSIDE RECORDS SUMMARY | 2024-08-10 12:52 | XMS_ITS | Encounter Summary ---
Author Organization [facility] Address [address], [place] [address] Care Team Providers Care Chief Airport Guide Name Role Phone Franklin Squires MD Primary Care Provider [phone] Encounter Details Date Type Department Care Team [...] filedocumented in this encounter Care Teams Chief Airport Guide Relationship Specialty Start Date End Date Franklin Squires MD 100 [facility] [address] PCP - General Family Practice 03/08/16 documented as of this encounter
--- OUTSIDE RECORDS SUMMARY | 2024-08-10 12:52 | XMS_ITS | Encounter Summary ---
Author Organization [facility] Address [address], [place] [address] Care Team Providers Care Mobile Application Architect Name Role Phone Franklin Squires MD Primary Care Provider [phone] Encounter Details Date Type Department Care Team (Latest Contact Info) Description 12/11/2017 Correspondence Physiatry/Physical Medicine at [facility] 295 [facility] [place] [address] May Randle MD [address] [place] [address] [employer] Social History Tobacco Use [...] in this encounter Care Teams Mobile Application Architect Relationship Specialty Start Date End Date Franklin Squires MD [address] [place] [address] [place] [address] PCP - General Family Practice 03/08/16 documented as of this encounter
--- OUTSIDE RECORDS SUMMARY | 2024-08-10 12:52 | XMS_ITS | Encounter Summary ---
Author Organization [facility] Address [address], [place] [address] Care Team Providers Care Fork Assembler Name Role Phone Franklin Squires MD [...] on filedocumented in this encounter Care Teams Fork Assembler Relationship Specialty Start Date End Date Franklin Squires MD 100 [facility] [place] [address] PCP - General Family Practice 03/08/16 documented as of this encounter
--- OUTSIDE RECORDS SUMMARY | 2024-08-10 12:52 | XMS_ITS | Encounter Summary ---
Author Organization [facility] Address [address] [address] Care Team Providers Care Front Desk Agent Name Role Phone Franklin Squires MD [...] in this encounter Care Teams Front Desk Agent Relationship Specialty Start Date End Date Franklin Squires MD 100 [facility] [address] PCP - General Family Practice 03/08/16 documented as of this encounter
--- OUTSIDE RECORDS SUMMARY | 2024-08-10 12:52 | XMS_ITS | Encounter Summary ---
Author Organization [facility] Address [address], [place] [address] Care Team Providers Care Warehouse Distribution Manager Name Role Phone Franklin Squires MD [...] filedocumented in this encounter Care Teams Warehouse Distribution Manager Relationship Specialty Start Date End Date Franklin Squires MD [address] [place], [place] [address] [address] PCP - General Family Practice 03/08/16 documented as of this encounter
--- OUTSIDE RECORDS SUMMARY | 2024-08-10 12:52 | XMS_ITS | Encounter Summary ---
Author Organization [facility] Address [address] [address] Care Team Providers Care Global Position System Technician Name Role Phone Franklin Squires MD Primary Care Provider Encounter Details Date Type Department Care Team (Late st Contact Info) Description 11/23/2015 Correspondence External to External, Provider [place] [address] LETTER [facility] Social History [...] Date End Date Franklin Squires MD [address] [place] [address] [place] [address] PCP - General Family Practice 03/08/16 documented as of this encounter
--- OUTSIDE RECORDS SUMMARY | 2024-08-10 12:52 | XMS_ITS | Clinical Summary ---
Author Organization [facility] Address [address] [place] [address] Care Team Providers Care Payroll Accountant Name Role Phone Franklin Squires MD Primary Care Provider [phone] Source Comments You are receiving this document [...] for each transition of care or referral. 911 Pets Allergies Active Allergy Reactions Criticality Noted Date [...] 06/10/2014 History of anticoagulant therapy 02/17/2014 senior living current use of anticoagulant therapy 0 02/17/2014 [...] Comments Blood Pressure 120/63 01/18/2022 12:59 PM LEATHER STITCHER Pulse 87 01/18/2022 12:59 PM LEATHER STITCHER Temperature 36.3 ??C (97.4 ??F) 01/18/2022 12:59 [...] this topic Medical Devices Implanted Type Area Automobile Body Repairer Device Identifier Shelf Expiration Date Model / Serial / Lot [id number] 4ml Tisseel Explanted:([place] ntity not on file) BIOLOGIC N/A: NECK Lynne Fenwall 09/10/2011 [id number] / [id number] / [id number] Description:posterior Cath Intrathecal Indura - [id number] Implanted:Qty: 1 on 05/09/2010 at [facility] DEVICE Right: LUMBAR SPINE [place] [employer] 01/18/2012 8709 / N/A / [id number] Cath Intrathecal Indura - [id number] Implanted:Qty: 1 on 05/29/2010 at [facility] DEVICE [employer] 8709 / / Scr Indira Conic 7.3x80 - [id number] Implanted:Qty: 1 on 03/13/2011 at [facility] DEVICE Right: FEMUR DISTAL [employer] 0 / NONE / NONE Plt Lcp Cndl Rt 4.5x170 6h - [id number] Implanted:Qty: 1 on 03/13/2011 at [facility] DEVICE Right: FEMUR DISTAL [employer] 222.656 / NONE / NONE Description:6 hole 170mm rig ht 4.5mm lcp condylar plate Scr Didier Ss Sftp 4.5x40 - [id number] Implanted:Qty: 1 on 03/13/2011 at [facility] DEVICE Left: FEMUR DISTAL [employer] 214.840 / NONE / NONE Scr Didier Ss Sftp 4.5x50 - [id number] Implanted:Qty: 1 on 03/13/2011 at [facility] DEVICE Left: FEMUR DISTAL [employer] 214.850 / NONE / NONE Scr Indira Lk 5.0x80 - [id number] Implanted:Qty: 2 on 03/13/2011 at [facility] DEVICE Left: FEMUR DISTAL [employer] 02.205.08 0 / NONE / NONE Scr Indira Lk 5.0x85 - [id number] Implanted:Qty: 2 on 03/13/2011 at [facility] DEVICE Left: FEMUR DISTAL [employer] 02.205.08 5 / NONE / NONE Scr Lk Sftp T25 5.0x50 - [id number] Implanted:Qty: 1 on 03/13/2011 at [facility] DEVICE Left: FEMUR DISTAL [employer] 212.219 / NONE / NONE Scr Lk Sftp T25 5.0x60 - [id number] Implanted:Qty: 1 on 03/13/2011 at [facility] DEVICE Left: FEMUR DISTAL [employer] 212.221 / NONE / NONE Scr Indira Conic 7.3x85 - [id number] Implanted:Qty: 1 on 03/13/2011 at [facility] DEVICE Left: FEMUR DISTAL [employer] 02.207.28 5 / NONE / NONE Plt Lcp Cndl Lt 4.5x170 6h - [id number] Implanted:Qty: 1 on 03/13/2011 at [facility] DEVICE Left: FEMUR DISTAL [employer] 222.657 / NONE / NONE Description:6 hole 170mmleng th left 4.5mm lcp condylar plate. Scr Didier Sftp 3.5x60 F-Thrd - [id number] Implanted:Qty: 1 on 03/13/2011 at [facility] DEVICE Left: TIBIA PROXIMAL [employer] 204.860 / NONE / NONE Scr Star Lk Sftp 3.5x32 - [id number] Implanted:Qty: 1 on 03/13/2011 at [facility] DEVICE Left: TIBIA PROXIMAL [employer] 212.112 / NONE / NONE Scr Star Lk Sftp 3.5x55 - [id number] Implanted:Qty: 2 on 03/13/2011 at [facility] DEVICE Left: TIBIA PROXIMAL [employer] 212.123 / NONE / NONE Scr Star Lk Sftp 3.5x60 - [id number] Implanted:Qty: 2 on 03/13/2011 at [facility] DEVICE Left: TIBIA PROXIMAL [employer] 212.124 / NONE / NONE Plt Lcp M/Prox Lt 3.5x94 4h - [id number] Implanted:Qty: 1 on 03/13/2011 at [facility] DEVICE Left: TIBIA PROXIMAL [employer] 239.955 / NONE / NONE Scr Didier Ss Sftp 4.5x36 - [id number] Implanted:Qty: 1 on 03/13/2011 at [facility] DEVICE Right: FEMUR DISTAL [employer] 214.836 / NONE / NONE Scr Didier Ss Sftp 4.5x44 - [id number] Implanted:Qty: 1 on 03/13/2011 at [facility] DEVICE Right: FEMUR DISTAL [employer] 214.844 / NONE / NONE Scr Indira Lk 5.0x75 - [id number] Implanted:Qty: 1 on 03/13/2011 at [facility] DEVICE Right: FEMUR DISTAL [employer] 02.205.07 5 / NONE / NONE Scr Indira Lk 5.0x85 - [id number] Implanted:Qty: 2 on 03/13/2011 at [facility] DEVICE Right: FEMUR DISTAL [employer] 02.205.08 5 / NONE / NONE Scr Lk Sftp T25 5.0x44 - [id number] Implanted:Qty: 1 on 03/13/2011 at [facility] DEVICE Right: FEMUR DISTAL [employer] 212.216 / NONE / NONE Scr Lk Sftp T25 5.0x65 - [id number] Implanted:Qty: 1 on 03/13/2011 at [facility] DEVICE Right: FEMUR DISTAL [employer] 212.222 / NONE / NONE Plt Lp T Ti Str 4h - [id number] Implanted:Qty: 3 on 07/28/2014 by Cooper Shelley MD at [facility] DEVICE Right: SKULL [employer] 421.504 / / Scr Matrix Sfdr 4mm - [id number] Implanted:Qty: 6 on 07/28/2014 by Cooper Shelley MD at [facility] DEVICE Right: SKULL [employer] 04.503.10 4.01 / / Lead Linear 3-4 8 Contact 50cm - [id number] Implanted:Qty: 1 on 03/08/2016 by Zelalem Cohen DO at [facility] DEVICE N/A: OTHER-SEE DESCRIPTION [place] [facility] 09/10/2017 [id number] 2500 / / [id number] Description:LUMBAR Lead Linear 3-4 8 Contact 50cm - [id number] Implanted:Qty: 1 on 03/08/2016 by Zelalem Cohen DO at [facility] DEVICE N/A: OTHER-SEE DESCRIPTION [place] [facility] 09/10/2017 [id number] 2500 / / [id number] Description:LUMBAR Lead Linear 3-4 8 Contact 50cm - [id number] Implanted:Qty: 1 on 03/08/2016 by Zelalem Cohen DO at [facility] DEVICE N/A: OTHER-SEE DESCRIPTION [place] [facility] 09/10/2017 [id number] 2500 / / [id number] Description:LUMBAR Lead Linear 3-4 8 Contact 50cm - [id number] Implanted:Qty: 1 on 03/08/2016 by Zelalem Cohen DO at [facility] DEVICE N/A: OTHER-SEE DESCRIPTION [facility] 09/10/2017 [id number] 2500 / / [id number] Description:LUMBAR Lead Linear 3-4 8 Contact 50cm - [id number] Implanted:Qty: 1 on 05/24/2016 by Zelalem Cohen DO at [facility] DEVICE N/A: SPINE LUMBAR POSTERIOR [facility] [facility] 01/31/2018 [id number] 2500 / [id number] / Lead Linear 3-4 8 Contact 50cm - [id number] Implanted:Qty: 1 on 05/24/2016 by Zelalem Cohen DO at [facility] DEVICE N/A: SPINE LUMBAR POSTERIOR [facility] [facility] 04/26/2018 [id number] 2500 / [id number] / Lead Linear 3-4 8 Contact 50cm - [id number] Implanted:Qty: 1 on 05/24/2016 by Zelalem Cohen DO at [facility] DEVICE N/A: SPINE LUMBAR POSTERIOR [facility] 04/26/2018 [id number] 2500 / [id number] / Lead Linear 3-4 8 Contact 50cm - [id number] Implanted:Qty: 1 on 05/24/2016 by Zelalem Cohen DO at [facility] DEVICE N/A: SPINE LUMBAR POSTERIOR [facility] [facility] 04/26/2018 [id number] 2500 / [id number] / Generator Pulse Spectra - [id number] Implanted:Qty: 1 on 05/24/2016 by Zelalem Cohen DO at [facility] DEVICE N/A: SPINE LUMBAR POSTERIOR [facility] 05/08/2018 [id number] 20 / [id number] / [id number] [place] [employer] - [id number] Implanted:Qty: 1 on 05/24/2016 by Zelalem Cohen DO at [facility] DEVICE N/A: SPINE LUMBAR POSTERIOR [facility] 05/02/2018 [id number] 60 / / [id number] [place] [employer] - [id number] Implanted:Qty: 1 on 05/24/2016 by Zelalem Cohen DO at [facility] DEVICE N/A: SPINE LUMBAR POSTERIOR [facility] 02/28/2018 [id number] 60 / / [id number] Procedures Procedure Name Priority Date/Time Associated Diagnosis Comments CREATININE/GFR, WB POC Routine 01/06/2016 12:04 PM LEATHER STITCHER Back pain, 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 HGB A1C Routine 07/29/2014 3:19 AM CDT from Last 3 Months or Most Recently Relevant to Health Maintenance Results * CREATININE/GFR, WB POC (01/06/2016 12:04 PM LEATHER STITCHER) [facility] Creat Whole Blood 0.9 0.66 - 1.25 mg/dl [facility] GFR, Estimated >60 >60 ml/min/1.7 3m2 [facility] GFR, Est., If Black >60 >60 ml/min/1.7 3m2 [facility] 01/06/2016 12:0 4 PM LEATHER STITCHER 01/06/2016 12:21 PM LEATHER STITCHER Trae Blair MD LAB_1 [facility] [phone] * (ABNORMAL) HGB A1C (07/29/2014 3:19 AM CDT) [facility] Hgb A1c 6.4(H) 4.3 - 6.1 % [facility] Comment: The usual A1C goal for people with diabetes, age 18-75, is <8.0%. Physicians may recommend a higher or lower goal for specific individuals. 07/29/2014 3:19 AM CDT 07/29/2014 3:22 AM CDT Narrative [facility] - 07/29/2014 12:53 PM CDT [facility]formed at [facility], [address] [place] [address] ??[id number] [place] Wei PA-C LAB_[address] [address] from Last 3 Months or Most Recently [...] 5:44 PM 07/28/2014 6:50 PM Care Teams Payroll Accountant Relationship Specialty Start Date End Date Franklin Squires MD 100 [facility] [place] [address] PCP - General Family Practice 03/08/16
--- OUTSIDE RECORDS SUMMARY | 2024-08-10 12:52 | XMS_ITS | Encounter Summary ---
Author Organization [facility] Address [address], [place] [address] Care Team Providers Care Photogrammetric Engineer Name Role Phone Franklin Squires MD Primary Care Provider [phone] Encounter Details Date Type Department Care Team (Late st Contact Info) Description 12/16/2014 Correspondence External to External, [place] [address] MEDICARE PLAN OF CARE RECERT Social History [...] on filedocumented in this encounter Care Teams Photogrammetric Engineer Relationship Specialty Start Date End Date Franklin Squires MD [address] [place] [address] [place] [address] PCP - General Family Practice 03/08/16 documented as of this encounter
--- OUTSIDE RECORDS SUMMARY | 2024-08-10 12:52 | XMS_ITS | Encounter Summary ---
Author Organization [facility] Address [address], [place] [address] Care Team Providers Care Cardiology Rn Name Role Phone Franklin Squires MD Primary Care Provider [phone] Encounter Details Date Type Department Care Team (Late st Contact Info) Description 12/14/2014 Correspondence Specialty Center 401 Physical Medicine 401 [place] [address] May Randle MD [address] [place] [address] DETAILED PRODUCT DESCRIPTION Social History Tobacco Use [...] on filedocumented in this encounter Care Teams Cardiology Rn Relationship Specialty Start Date End Date Franklin Squires MD 100 [facility] [place] [address] PCP - General Family Practice 03/08/16 documented as of this encounter
--- OUTSIDE RECORDS SUMMARY | 2024-08-10 12:52 | XMS_ITS | Encounter Summary ---
Author Organization [facility] Address [address] [address] Care Team Providers Care Medical Staff Services Manager Name Role Phone Franklin Squires MD Primary Care Provider [phone] Encounter Details Date Type Department Care Team (Late st Contact Info) Description 03/11/2014 [facility] 401 Interventional Pain Management 401 [facility] [place] [address] Zelalem Cohen, DO [address] [place] [address] EMPI Social History Tobacco Use Types Packs/Day [...] filedocumented in this encounter Care Teams Medical Staff Services Manager Relationship Specialty Start Date End Date Franklin Squires MD 100 [facility] [place] [address] PCP - General Family Practice 03/08/16 documented as of this encounter
--- OUTSIDE RECORDS SUMMARY | 2024-08-10 12:52 | XMS_ITS | Encounter Summary ---
Author Organization [facility] Address [address] [address] Care Team Providers Care Computer Technology Teacher Name Role Phone Franklin Squires MD Primary Care Provider Encounter Details Date Type Department Care Team (Late st Contact Info) Description 05/04/2014 [facility] 401 Physical Medicine 401 [place] [address] May Randle MD [address] [place] [address] LETTER OF MEDICAL NECESSITY FOR A WHEELCHAIR [...] filedocumented in this encounter Care Teams Computer Technology Teacher Relationship Specialty Start Date End Date Franklin Squires MD 100 [facility] [place] [address] PCP - General Family Practice 03/08/16 documented as of this encounter
--- OUTSIDE RECORDS SUMMARY | 2024-08-10 12:52 | XMS_ITS | Encounter Summary ---
[facility] Address [address] [address] Care Team Providers Care Field Sales Executive Name Role Phone Franklin Squires MD Primary Care Provider Encounter Details Date Type Department Care Team (Late st Contact Info) Description 07/28/2014 Outside Hospital External to External, Provider No address [address] ER VISIT/TRANSFER Social History Tobacco Use [...] filedocumented in this encounter Care Teams Field Sales Executive Relationship Specialty Start Date End Date Franklin Squires MD 100 [facility] [place] [address] PCP - General Family Practice 03/08/16 documented as of this encounter
--- OUTSIDE RECORDS SUMMARY | 2024-08-10 12:52 | XMS_ITS | Encounter Summary ---
Author Organization [facility] Address [address], [place] [address] Care Team Providers Care Channel Worker Name Role Phone Franklin Squires MD Primary Care Provider Encounter Details Date Type Department Care Team (Late st Contact Info) Description 08/20/2014 Outside Hospital External to [facility]/P Social History Tobacco Use Types [...] filedocumented in this encounter Care Teams Channel Worker Relationship Specialty Start Date End Date Franklin Squires MD 100 [facility] [place] [address] PCP - General Family Practice 03/08/16 documented as of this encounter
--- OUTSIDE RECORDS SUMMARY | 2024-08-10 12:52 | XMS_ITS | Encounter Summary ---
Author Organization [facility] Address [address], [place] [address] Care Team Providers Care Rail Car Driver Name Role Phone Franklin Squires MD Primary Care Provider [phone] Encounter Details Date Type Department Care Team [...] filedocumented in this encounter Care Teams Rail Car Driver Relationship Specialty Start Date End Date Franklin Squires MD 100 [facility] [place] [address] PCP - General Family Practice 03/08/16 documented as of this encounter
--- OUTSIDE RECORDS SUMMARY | 2024-08-10 12:52 | XMS_ITS | Encounter Summary ---
Author Organization [facility] Address [address] [address] Care Team Providers Care Sand Slinger Name Role Phone Franklin Squires MD Primary Care Provider Encounter Details Date Type Department Care Team (Late st Contact Info) Description 06/11/2014 [facility] 401 Physical Medicine 401 [facility] [place] [address] May Randle MD [address] [place] [address] [facility] Social History Tobacco Use Types [...] filedocumented in this encounter Care Teams Sand Slinger Relationship Specialty Start Date End Date Franklin Squires MD 100 [facility] [place] [address] PCP - General Family Practice 03/08/16 documented as of this encounter
--- OUTSIDE RECORDS SUMMARY | 2024-08-10 12:52 | XMS_ITS | Encounter Summary ---
Author Organization [facility] Address [address] [address] Care Team Providers Care Seismograph Helper Name Role Phone Franklin Squires MD Primary Care Provider Encounter Details Date Type Department Care Team (Late st Contact Info) Description 02/09/2016 [facility] 401 NeuroSurgery 401 [facility]. [place], [place] [id number] Jodi Aguila PA-C [address] [place] [address] PATIENT LIFT PRESCRIPTION Social History Tobacco Use [...] on filedocumented in this encounter Care Teams Seismograph Helper Relationship Specialty Start Date End Date Franklin Squires MD 100 [facility] [place] [id number] PCP - General Family Practice 03/08/16 documented as of this encounter
--- OUTSIDE RECORDS SUMMARY | 2024-08-10 12:52 | XMS_ITS | Encounter Summary ---
Author Organization [facility] Address [address] [address] Care Team Providers Care Paperhanger Assistant Name Role Phone Franklin Squires MD Primary Care Provider [phone] Encounter Details Date Type Department Care Team (Late st Contact Info) Description 12/16/2013 Correspondence [facility] Radiology [address] [place] [address] Radiology, Provider MRI SAFETY SHEET AND COMPATIBILITY [...] Radiology, Provider - 12/16/2013 12:00 AM CST TIATOR SALES documented in this encounter Plan of Treatment Not on file documented as of this encounter Visit Diagnoses Not on filedocumented in this encounter Care Teams Paperhanger Assistant Relationship Specialty Start Date End Date Franklin Squires MD 100 [facility] [place] [address] PCP - General Family Practice 03/08/16 documented as of this encounter
--- OUTSIDE RECORDS SUMMARY | 2024-08-10 12:52 | XMS_ITS | Encounter Summary ---
Author Organization [facility] Address [address], [place] [address] Care Team Providers Care Management Specialist Name Role Phone Franklin Squires MD Primary Care Provider [phone] Encounter Details Date Type Department Care Team (Late st Contact Info) Description 09/07/2014 Correspondence [facility] Radiology [address] [place] [address] Radiology, Provider MRI SAFETY SHEET AND COMPATIBILITY [...] filedocumented in this encounter Care Teams Management Specialist Relationship Specialty Start Date End Date Franklin Squires MD [address] [place], [place] [address] [address] PCP - General Family Practice 03/08/16 documented as of this encounter
--- OUTSIDE RECORDS SUMMARY | 2024-08-10 12:53 | XMS_ITS | Encounter Summary ---
Author Organization [facility] Address [address], [place] [address] Care Team Providers Care Vpk Teacher Name Role Phone Franklin Squires MD Primary Care Provider [phone] Encounter Details Date Type Department Care Team (Late st Contact Info) Description 09/17/2013 Correspondence External to External, [place] [address] EMPOWERMENT RULES Social History Tobacco Use Types [...] External, Provider - 09/17/2013 12:00 AM CST ATIONS EXAMINER documented in this encounter Plan of Treatment Not on file documented as of this encounter Visit Diagnoses Not on filedocumented in this encounter Care Teams Vpk Teacher Relationship Specialty Start Date End Date Franklin Squires MD [address] [place] [address] [place] [address] PCP - General Family Practice 03/08/16 documented as of this encounter
--- OUTSIDE RECORDS SUMMARY | 2024-08-10 12:53 | XMS_ITS | Encounter Summary ---
Author Organization [facility] Address [address], [place] [address] Care Team Providers Care Treasury Analyst Name Role Phone Franklin Squires MD Primary Care Provider [phone] Encounter Details Date Type Department Care Team (Late st Contact Info) Description 07/23/2013 [facility] 401 Interventional Pain Management 401 [facility] [place] [address] Zelalem Cohen DO [address] [place] [address] [employer] Social History Tobacco Use Types [...] Cohen MD - 07/23/2013 12:00 AM CDT ALLER [employer]LOORING documented in this encounter Plan of Treatment Not on file documented as of this encounter Visit Diagnoses Not on filedocumented in this encounter Care Teams Treasury Analyst Relationship Specialty Start Date End Date Franklin Squires MD 100 [facility] [address] PCP - General Family Practice 03/08/16 documented as of this encounter
--- OUTSIDE RECORDS SUMMARY | 2024-08-10 12:53 | XMS_ITS | Encounter Summary ---
Author Organization [facility] Address [address] [address] Care Team Providers Care Counseling Department Chair Name Role Phone Franklin Squires [...] on filedocumented in this encounter Care Teams Counseling Department Chair Relationship Specialty Start Date End Date Franklin Squires MD 100 [facility] [address] PCP - General Family Practice 03/08/16 documented as of this encounter
--- OUTSIDE RECORDS SUMMARY | 2024-08-10 12:53 | XMS_ITS | Encounter Summary ---
Author Organization [facility] Address [address] [address] Care Team Providers Care Spear Fisher Name Role Phone Franklin Squires MD Primary Care Provider [phone] Encounter Details Date Type Department Care Team [...] on filedocumented in this encounter Care Teams Spear Fisher Relationship Specialty Start Date End Date Franklin Squires MD 100 [facility] [place] [address] PCP - General Family Practice 03/08/16 documented as of this encounter
--- OUTSIDE RECORDS SUMMARY | 2024-08-10 12:53 | XMS_ITS | Encounter Summary ---
Author Organization [facility] Address [address] [address] Care Team Providers Care Meal Room Hand Name Role Phone Franklin Squires MD Primary Care Provider Encounter Details Date Type Department Care Team (Late st Contact Info) Description 04/20/[address] [address] Radiology, Provider MRI SAFETY SHEET AND COMPATIBILITY [...] on filedocumented in this encounter Care Teams Meal Room Hand Relationship Specialty Start Date End Date Franklin Squires MD 100 [facility] [place] [address] PCP - General Family Practice 03/08/16 documented as of this encounter
--- OUTSIDE RECORDS SUMMARY | 2024-08-10 12:53 | XMS_ITS | Encounter Summary ---
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
--- OUTSIDE RECORDS SUMMARY | 2024-08-10 12:53 | XMS_ITS | Encounter Summary ---
Author Organization [facility] Address [address] [address] Care Team Providers Care Yard Goods Salesperson Name Role Phone Franklin Squires MD Primary Care Provider Encounter Details Date Type Department Care Team (Late st Contact Info) Description 04/24/2012 Correspondence [facility] Radiology [address] [place] [address] Radiology, Provider MRI SAFETY SHEET AND COMPATIBILITY [...] on filedocumented in this encounter Care Teams Yard Goods Salesperson Relationship Specialty Start Date End Date Franklin Squires MD 100 [facility] [place] [address] PCP - General Family Practice 03/08/16 documented as of this encounter
== END 2024-08-10 12:48 | disposition home or self-care (01) ==
LOC: WOUND 12:47
PROVIDERS: PCP Family Medicine; Visit Provider Nurse Practitioner Family
DX: M86.68 Other chronic osteomyelitis, other site (principal); L89.324 Pressure ulcer of left buttock, stage 4; G82.50 Quadriplegia, unspecified
CPT/HCPCS: 11042

== ENCOUNTER 2024-08-17 12:44 | Outpatient (CLI) | payer MEDICARE, OTHER, SELFPAY ==
--- OUTSIDE RECORDS SUMMARY | 2024-08-17 12:46 | XMS_ITS | Continuity of Care Document ---
Author Name [facility] Organization [facility] Care Team Providers Care Mechanotherapist Name Role Phone [facility] Unavailable Unavailable Problems Combined list of problems from 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 It does not include entries that were removed or entered in error. Problem Status Onset Date Problem Type Date of Resolution Comments Source Abnormal liver function Active Condition [facility] Anemia ([facility] 222383514) Active Condition [facility] Anxiety ([facility] 71858483) Active Condition [facility] Autonomic dysreflexia Active Condition [facility] Chronic Pain Syndrome ([facility] 911313742) Active Condition [facility] Colostomy present Active Condition [facility] Constipation ([facility] 89255872) Active Condition [facility] Continuous opioid dependence Active Condition [facility] COPD - Chronic Obstructive Pulmonary Disease ([facility] 83246125) Active Condition [facility] Dementia Active Condition [facility] Depression ([facility] 55559212) Active Condition [facility] Diabetes Mellitus Type 2 ([facility] 12834701) Active Condition [facility] Ependymoma of spinal cord Active Condition [facility] Hearing Loss ([facility] 70801547) Active Condition [facility] History of Deep Vein Thrombosis ([facility] 826951952) Active Condition [facility] History of pressure injury Active Condition [facility] HTN - Hypertension ([facility] 54674137) Active Condition [facility] Hyperlipidemia ([facility] 62581313) Active Condition [facility] Hyponatremia Active [facility] Long-term current use of anticoagulant Active Condition [facility] Neurogenic Bladder ([facility] 628852865) Active Condition [facility] Neurogenic bowel Active Condition [facility] Osteoporosis ([facility] 84873844) Active Condition [facility] Paraplegia Active Condition [facility] Spasticity Active Condition [facility] Suprapubic urinary catheter in situ Active Condition [facility] Supraventricular tachycardia Active Condition [facility] Tinnitus ([facility] 01624145) Active Condition [facility] Vitamin D Deficiency ([facility] 6903988) Active Condition [facility] Diagnosis: ICD-10-CM Z73.6 Limitation of activities due to disability Active Diagnosis [facility] Diagnosis: ICD-10-CM G82.20 Paraplegia, unspecified Active Diagnosis [facility] Medications Combined list of outpatient medications from Department of Defense and [facility] Affairs facilities.Medications provided include 1) outpatient medications from the last 15 months, and 2) patient-reported medications. Medication Details Route Status Patient Instructions Prescription Expires Prescription Number Last Dispense Date Ordering Provider Order Date Order Qty Source ACETAMINOPH EN 500MG TAB TAKE TWO TABLETS BY MOUTH THREE TIMES A DAY NEEDED ORAL ACTIVE Jagdish BARRETT N 2022 [facility] AMLODIPINE BESYLATE (AMLODIPINE BESYLATE), 5 MG, TABLET, ORAL, [employer] 1000 ea. BOTTLE Active [id number] 4 2023 90 Pharmac y Data Transac tion Service Facilit y AMLODIPINE BESYLATE (amlodipine besylate), 5 MG, TABLET, ORAL, [employer], 1000 ea. BOTTLE Active [id number] 4 2023 90 Pharmac y Data Transac tion Service Facilit y AMLODIPINE BESYLATE 2.5MG TAB TAKE TWO TABLETS BY MOUTH EVERY MORNING ORAL ACTIVE Jagdish BARRETT 2022 [facility] AMOX TR-POTASSIU M CLAVULANATE (AMOXICILLI N/POTASSIUM CLAV), 875-125 MG, TABLET, ORAL, [employer], 20 ea. BOTTLE Active [id number] 3 2022 14 Pharmac y Data Transac tion Service Facilit y AMOXICILLIN -CLAVULANAT E POTASS (amoxicilli n/potassium clavulanate ), 875-125 MG, TABLET, ORAL, [employer],, 20 ea. BOTTLE Active [id number] 2023 20 Pharmac y Data Transac tion Service Facilit y AMOXICILLIN -CLAVULANAT E POTASS (amoxicilli n/potassium clavulanate ), 875-125 MG, TABLET, ORAL, [employer] [facility],, 20 ea. BOTTLE Active [id number] 2023 56 Pharmac y Data Transac tion Service Facilit y ARIPIPRAZOL E (aripiprazo le), 2 MG, TABLET, ORAL, [employer], 500 ea. BOTTLE Active [id number] 2023 180 Pharmac y Data Transac tion Service Facilit y ARIPIPRAZOL E (aripiprazo le), 2 MG, TABLET, ORAL, [employer], 500 ea. BOTTLE Active [id number] 2023 180 Pharmac y Data Transac tion Service Facilit y ARIPIPRAZOL E TAB TAKE 2MG BY MOUTH TWICE A DAY ORAL ACTIVE Jey HANSON TAZEvelyn Clemente 2021 [facility] ATIVAN (LORAZEPAM) , 0.5 MG, TABLET, ORAL, [employer], 100 ea. BOTTLE Active [id number] 2023 120 Pharmac y Data Transac tion Service Facilit y ATORVASTATI N CA 80MG TAB TAKE ONE-HALF TABLET BY MOUTH EVERY DAY ORAL ACTIVE Jey HANSON Bryn 2021 [facility] ATORVASTATI N CALCIUM (atorvastat in calcium), 40 MG, TABLET, ORAL, BI[employer]ON PHARMA I, 1000 ea. BOTTLE Active [id number] 2023 90 Pharmac y Data Transac tion Service Facilit y ATORVASTATI N CALCIUM (atorvastat in calcium), 40 MG, TABLET, ORAL, BI[employer] PHARMA I, 1000 ea. BOTTLE Active [id number] 2023 90 Pharmac y Data Transac tion Service Facilit y BACLOFEN 20MG TAB TAKE TWO TABLETS BY MOUTH THREE TIMES A DAY ORAL ACTIVE Jagdish BARRETT 2022 [facility] BUPROPION HCL 150MG 12HR TAB,SA TAKE ONE TABLET BY MOUTH TWICE A DAY ORAL ACTIVE Jey HANSON Bryn 2021 [facility] BUPROPION HCL SR (bupropion HCl), 150 MG, TAB SR 12H, ORAL, PAVEL PHARMACEU, 60 ea. BOTTLE Active [id number] 2023 180 Pharmac y Data Transac tion Service Facilit y BUPROPION HCL SR (bupropion HCl), 150 MG, TAB SR 12H, ORAL, [employer]ARMACEU, 60 ea. BOTTLE Active [id number] 2023 180 Pharmac y Data Transac tion Service Facilit y CEPHALEXIN 250MG CAP TAKE 1 CAPSULE BY MOUTH EVERY DAY ORAL ACTIVE Jey HANSON Bryn 2021 [facility] CHOLECALCIF GILSON 25MCG (1,000UNIT) TAB TAKE ONE TABLET BY MOUTH EVERY DAY ORAL ACTIVE Jey HANSON Bryn 2021 [facility] CIPROFLOXAC IN HCL (CIPROFLOXA SHAR HCL), 750 MG, TABLET, ORAL, [employer]ARM, 50 ea. BOTTLE Active [id number] 2023 70 Pharmac y Data Transac tion Service Facilit y DONEPEZIL HCL (DONEPEZIL HCL), 5 MG, TABLET, ORAL, [employer] 1000 ea. BOTTLE Active [id number] 2023 90 Pharmac y Data Transac tion Service Facilit y DONEPEZIL HCL (DONEPEZIL HCL), 5 MG, TABLET, ORAL, [employer] 1000 ea. BOTTLE Cancele d [id number] : 2023 0 Pharmac y Data Transac tion Service Facilit y DONEPEZIL HCL (DONEPEZIL HCL), 5 MG, TABLET, ORAL, [employer] 1000 ea. BOTTLE Active [id number] 2023 90 Pharmac y Data Transac tion Service Facilit y DONEPEZIL HCL 10MG TAB TAKE ONE-HALF TABLET BY MOUTH EVERY DAY ORAL ACTIVE Jey HANSON Bryn 2021 [facility] DULOXETINE HCL (duloxetine HCl), 60 MG, CAPSULE DR, ORAL, [employer] 1000 ea. BOTTLE Active [id number] 2023 180 Pharmac y Data Transac tion Service Facilit y DULOXETINE HCL (duloxetine HCl), 60 MG, CAPSULE DR, ORAL, [employer] 1000 ea. BOTTLE Active [id number] 2023 180 Pharmac y Data Transac tion Service Facilit y DULOXETINE HCL 30MG CAP,EC TAKE 2 CAPSULES BY MOUTH TWICE A DAY ORAL ACTIVE GRANDJey PRADHAN M 2021 [facility] FAMOTIDINE (famotidine ), 20 MG, TABLET, ORAL, [employer] 1000 ea. BOTTLE Active [id number] 2023 180 Pharmac y Data Transac tion Service Facilit y FAMOTIDINE 20MG TAB TAKE ONE TABLET BY MOUTH TWICE A DAY ORAL ACTIVE GRANDIA,C ONALAINAE M 2021 [facility] FUROSEMIDE (furosemide ), 40 MG, TABLET, ORAL, [employer], 1000 ea. BOTTLE Active [id number] 2023 180 Pharmac y Data Transac tion Service Facilit y FUROSEMIDE 40MG TAB TAKE ONE TABLET BY MOUTH TWICE A DAY ORAL ACTIVE MARGIE,C SB M 2021 [facility] GABAPENTIN (gabapentin ), 400 MG, CAPSULE, ORAL, [employer] 500 ea. BOTTLE Active [id number] 2023 270 Pharmac y Data Transac tion Service Facilit y GABAPENTIN (gabapentin ), 400 MG, CAPSULE, ORAL, [employer]ARMAC, 500 ea. BOTTLE Active [id number] 4 2023 270 Pharmac y Data Transac tion Service Facilit y GABAPENTIN (gabapentin ), 400 MG, CAPSULE, ORAL, [employer], 500 ea. BOTTLE Cancele d [id number] : 2023 0 Pharmac y Data Transac tion Service Facilit y GABAPENTIN 400MG CAP TAKE 1 CAPSULE BY MOUTH THREE TIMES A DAY ORAL ACTIVE GRANDIAJeyE M 2021 [facility] LORAZEPAM (lorazepam) , 0.5 MG, TABLET, ORAL, [employer], 500 ea. BOTTLE Active [id number] 2023 120 Pharmac y Data Transac tion Service Facilit y LORAZEPAM (lorazepam) , 0.5 MG, TABLET, ORAL, [employer]AR[employer], 1000 ea. BOTTLE Active [id number] 2023 120 Pharmac y Data Transac tion Service Facilit y LORAZEPAM (lorazepam) , 0.5 MG, TABLET, ORAL, [employer], 1000 ea. BOTTLE Active [id number] 2023 120 Pharmac y Data Transac tion Service Facilit y LORAZEPAM (lorazepam) , 0.5 MG, TABLET, ORAL, [employer], 1000 ea. BOTTLE Active [id number] 2023 120 Pharmac y Data Transac tion Service Facilit y LORAZEPAM (lorazepam) , 0.5 MG, TABLET, ORAL, [employer], 500 ea. BOTTLE Active [id number] 2023 120 Pharmac y Data Transac tion Service Facilit y LORAZEPAM 0.5MG TAB TAKE ONE TABLET BY MOUTH THREE TIMES A DAY AND TAKE TWO TABLETS BY MOUTH AT BEDTIME ORAL ACTIVE Jagdish BARRETT 2022 [facility] MILK OF MAGNESIA TAKE 30ML BY MOUTH EVERY DAY NEEDED ORAL ACTIVE GRANDIA,C TAZE M 2021 [facility] MULTIVITAMI NS CAP/TAB TAKE ONE TABLET BY MOUTH EVERY DAY ORAL ACTIVE GRANDIA,C SB M 2021 [facility] NALOXONE HCL 4MG/SPRAY SOLN,SPRAY, NASAL SPRAY 1 DOSE IN ONE NOSTRIL DIRECTED PRN NASAL ACTIVE Jagdish BARRETT N 2022 [facility] OXYCODONE HCL (OXYCODONE HCL), 10 MG, TABLET, ORAL, [employer] 100 ea. BOTTLE Active [id number] 2023 120 Pharmac y Data Transac tion Service Facilit y OXYCODONE HCL (OXYCODONE HCL), 10 MG, TABLET, ORAL, [employer] 100 ea. BOTTLE Active [id number] 2023 120 Pharmac y Data Transac tion Service Facilit y OXYCODONE HCL (OXYCODONE HCL), 10 MG, TABLET, ORAL, [employer] 100 ea. BOTTLE Active [id number] 2023 120 Pharmac y Data Transac tion Service Facilit y OXYCODONE HCL (OXYCODONE HCL), 10 MG, TABLET, ORAL, [employer] 100 ea. BOTTLE Active [id number] 2023 120 Pharmac y Data Transac tion Service Facilit y OXYCODONE HCL (OXYCODONE HCL), 10 MG, TABLET, ORAL, [employer] 100 ea. BOTTLE Active [id number] 2023 120 Pharmac y Data Transac tion Service Facilit y OXYCODONE HCL (OXYCODONE HCL), 10 MG, TABLET, ORAL, [employer] 100 ea. BOTTLE Active [id number] 2023 120 Pharmac y Data Transac tion Service Facilit y OXYCODONE HCL (OXYCODONE HCL), 10 MG, TABLET, ORAL, [employer] 100 ea. BOTTLE Active [id number] 2022 120 Pharmac y Data Transac tion Service Facilit y OXYCODONE HCL 5MG TAB TAKE TWO TABLETS BY MOUTH FOUR TIMES A DAY ORAL ACTIVE Jagdish BARRETT 2022 [facility] POTASSIUM CHLORIDE (potassium chloride), 10 MEQ, TAB ER PRT, ORAL, [employer], 100 ea. BOTTLE Active [id number] 2023 180 Pharmac y Data Transac tion Service Facilit y POTASSIUM CHLORIDE (potassium chloride), 10 MEQ, TAB ER PRT, ORAL, [employer], 100 ea. BOTTLE Active [id number] 2023 180 Pharmac y Data Transac tion Service Facilit y POTASSIUM CHLORIDE (potassium chloride), 20 MEQ, TAB ER PRT, ORAL, [employer], 100 ea. BOTTLE Active [id number] 2023 90 Pharmac y Data Transac tion Service Facilit y POTASSIUM CHLORIDE 20MEQ TAB,SA (DISPERSIBL E) TAKE ONE TABLET BY MOUTH TWICE A DAY ORAL ACTIVE Jey HANSON 2021 [facility] SANTYL (collagenas e Clostridium histolyticu m), 250 UNIT/G, OINT. (G), TOPICAL, WHITLOCK&N/UNI LUIS, 30 g TUBE Cancele d [id number] : 2023 0 Pharmac y Data Transac tion Service Facilit y WARFARIN SODIUM (warfarin sodium), 5 MG, TABLET, ORAL, [employer] 1000 ea. BOTTLE Cancele d [id number] : 2022 0 Pharmac y Data Transac tion Service Facilit y WARFARIN SODIUM (WARFARIN SODIUM), 5 MG, TABLET, ORAL, [employer], 1000 ea. BOTTLE Active [id number] 2023 25 Pharmac y Data Transac tion Service Facilit y WARFARIN SODIUM (WARFARIN SODIUM), 5 MG, TABLET, ORAL, [employer], 1000 ea. BOTTLE Active [id number] 2023 12 Pharmac y Data Transac tion Service Facilit y WARFARIN SODIUM (WARFARIN SODIUM), 5 MG, TABLET, ORAL, [employer], 1000 ea. BOTTLE Active [id number] 2023 40 Pharmac y Data Transac tion Service Facilit y WARFARIN SODIUM (WARFARIN SODIUM), 5 MG, TABLET, ORAL, [employer], 1000 ea. BOTTLE Cancele d [id number] : 2022 0 Pharmac y Data Transac tion Service Facilit y WARFARIN SODIUM (warfarin sodium), 7.5 MG, TABLET, ORAL, [employer] [place], 100 ea. BOTTLE Active [id number] 2023 51 Pharmac y Data Transac tion Service Facilit y WARFARIN SODIUM (warfarin sodium), 7.5 MG, TABLET, ORAL, [employer] [place], 100 ea. BOTTLE Active [id number] 2023 78 Pharmac y Data Transac tion Service Facilit y WARFARIN TAB TAKE 5MG BY MOUTH SUN/THUR S AND TAKE 7.5MG BY MOUTH ALL OTHER DAYS ORAL ACTIVE Jagdish BARRETT 2022 [facility] Allergies, Adverse Reactions, Alerts Combined list of allergies from Department [facility] and [facility] facilities. It does not include entries that were removed or entered in error. Substance Category Reaction Severity Reaction type Status Date Reported Comments Source AMOXICILLIN Propensity to adverse reactions to drug (finding) [facility] METOLAZONE Propensity to adverse reactions to drug (finding) Itching active 2 [facility] MORPHINE Propensity to adverse reactions to drug (finding) Delirium active 2 [facility] PIPERACILLIN Propensity to adverse reactions to drug (finding) Eruption active 2 [facility] SULFA DRUGS Propensity to adverse reactions to drug (finding) Eruption active 2 [facility] IS [facility] TAZOBACTAM SODIUM Propensity to adverse reactions to drug (finding) Eruption active 2 [facility] Immunizations Combined list of available immunizations from the Department of [facility] and [facility] facilities. Immunization Series Date Given Administered By Site Reaction Lot Number CVX Code Drug Telescope Operator Status Comments Source COVID-19 ([facility]), MRNA, LNP-S, BIVALENT, PF, 30 MCG/0.3 ML DOSE 2021 300 complet ed [facility] INFLUENZA, ADJUVANTED, QUADRIVALENT, PF 2021 205 complet ed [facility] INFLUENZA, UNSPECIFIED FORMULATION 2021 88 complet ed [employer] recall [facility] TD (ADULT), 5 LF TETANUS TOXOID, PRESERVATIVE FREE, ADSORBED 2021 113 complet ed [facility] INFLUENZA, ADJUVANTED, QUADRIVALENT, PF 2020 205 complet ed [facility] INFLUENZA, UNSPECIFIED FORMULATION 2020 88 complet ed [facility] COVID-19 ([facility]), MRNA, LNP-S, PF, 30 MCG/0.3 ML DOSE 3 2020 208 complet ed [facility] COVID-19 (PFIZER), MRNA, LNP-S, PF, 30 MCG/0.3 ML DOSE 2 2020 208 complet ed [facility] COVID-19 ([facility]), MRNA, LNP-S, PF, 30 MCG/0.3 ML DOSE 1 2020 208 complet ed [facility] INFLUENZA, ADJUVANTED, QUADRIVALENT, PF 2019 205 complet ed [facility] INFLUENZA, ADJUVANTED, TRIVALENT, PF 2018 168 complet ed [facility] INFLUENZA, ADJUVANTED, TRIVALENT, PF 2017 168 complet ed [facility] INFLUENZA, HIGH-DOSE, TRIVALENT, PF 2016 135 complet ed [facility] INFLUENZA, ADJUVANTED, TRIVALENT, PF 2016 168 complet ed [facility] INFLUENZA, HIGH-DOSE, TRIVALENT, PF 2015 135 complet ed [facility] ZOSTER LIVE 2015 121 complet ed [facility] PNEUMOCOCCAL CONJUGATE PCV 13 2014 133 complet ed [facility] INFLUENZA, HIGH-DOSE, TRIVALENT, PF 2014 135 complet ed [facility] INFLUENZA, HIGH-DOSE, TRIVALENT, PF 2013 135 complet ed [facility] INFLUENZA, UNSPECIFIED FORMULATION 2013 88 complet ed [facility] INFLUENZA, SPLIT VIRUS, TRIVALENT, PRESERVATIVE 2012 141 complet ed [facility] ZOSTER LIVE 2012 121 complet ed [facility] INFLUENZA, SPLIT VIRUS, TRIVALENT, PRESERVATIVE 2011 141 complet ed [facility] INFLUENZA, SPLIT VIRUS, TRIVALENT, PF 2010 140 complet ed [facility] PNEUMOCOCCAL POLYSACCHARID E PPV23 2010 33 complet ed [facility] TDAP 2010 115 complet ed [facility] INFLUENZA, SPLIT VIRUS, TRIVALENT, PRESERVATIVE 2009 141 complet ed [facility] NOVEL INFLUENZA-H1N 1-09, ALL FORMULATIONS 2009 128 complet ed [facility] INFLUENZA, SPLIT VIRUS, TRIVALENT, PF 2008 140 complet ed [facility] PNEUMOCOCCAL POLYSACCHARID E PPV23 2008 33 complet ed [facility] INFLUENZA, SPLIT VIRUS, TRIVALENT, PRESERVATIVE 2008 141 complet ed [facility] INFLUENZA, SPLIT VIRUS, TRIVALENT, PRESERVATIVE 2007 141 complet ed [facility] INFLUENZA, SPLIT VIRUS, TRIVALENT, PRESERVATIVE 2005 141 complet ed [facility] INFLUENZA, SPLIT VIRUS, TRIVALENT, PRESERVATIVE 2004 141 complet ed [facility] PNEUMOCOCCAL POLYSACCHARID E PPV23 2004 33 complet ed [facility] INFLUENZA, SPLIT VIRUS, TRIVALENT, PRESERVATIVE 2003 141 complet ed [facility] Results Combined list of recent [...] Feb 05, 2023 03:10 PM Reporting Lab: [facility] [address] Performing Lab: [facility] [address] [facility] CYSTATIN C WITH EGFR CYSTATIN C AND GLOMERULAR FILTRATION RATE BY CYSTATIN C-BASED FORMULA PANEL - SERUM OR PLASMA 53 60 02/13 L Specimen Type: PLASMA No comment entered. Ordering Provider: ANKUSH BOWMAN Report Released Date/Time: Feb 05, 2023 03:10 PM Reporting Lab: [facility] [address] Performing Lab: [facility] [address] [facility] IS [facility] BASIC METABOLI C PANEL+MG CREATININE [MASS/VOLU ME] IN SERUM OR PLASMA 0.7 mg/dL 0.7 - 1.2 02/13 Specimen Type: PLASMA No comment entered. Ordering Provider: ANKUSH BOWMAN Report Released Date/Time: Feb 05, 2023 03:10 PM Reporting Lab: [facility] [address] Performing Lab: [facility] [address] [place] [facility] BASIC METABOLI C PANEL+MG UREA NITROGEN [MASS/VOLU ME] IN SERUM OR PLASMA 15 mg/dL 8 - 26 02/13 Specimen Type: PLASMA No comment entered. Ordering Provider: ANKUSH BOWMAN Report Released Date/Time: Feb 05, 2023 03:10 PM Reporting Lab: [facility] [address] Performing Lab: [facility] [address] [place] [facility] BASIC METABOLI C PANEL+MG GLUCOSE [MASS/VOLU ME] IN SERUM OR PLASMA 140 mg/dL 70 - 100 02/13 H Specimen Type: PLASMA No comment entered. Ordering Provider: ANKUSH BOWMAN Report Released Date/Time: Feb 05, 2023 03:10 PM Reporting Lab: [facility] [address] Performing Lab: [facility] [address] [place] [facility] BASIC METABOLI C PANEL+MG SODIUM [MOLES/VOL UME] IN SERUM OR PLASMA 135 mmol/L 136 - 145 02/13 L Specimen Type: PLASMA No comment entered. Ordering Provider: ANKUSH BOWMAN Report Released Date/Time: Feb 05, 2023 03:10 PM Reporting Lab: [facility] [address] Performing Lab: [facility] [address] [place] [facility] BASIC METABOLI C PANEL+MG POTASSIUM [MOLES/VOL UME] IN SERUM OR PLASMA 4.0 mmol/L 3.5 - 5.1 02/13 Specimen Type: PLASMA No comment entered. Ordering Provider: ANKUSH BOWMAN Report Released Date/Time: Feb 05, 2023 03:10 PM Reporting Lab: [facility] [address] Performing Lab: [facility] [address] [place] [facility] BASIC METABOLI C PANEL+MG CHLORIDE [MOLES/VOL UME] IN SERUM OR PLASMA 99 mmol/L 98 - 107 02/13 Specimen Type: PLASMA No comment entered. Ordering Provider: ANKUSH BOWMAN Report Released Date/Time: Feb 05, 2023 03:10 PM Reporting Lab: [facility] [address] Performing Lab: [facility] [address] [place] [facility] BASIC METABOLI C PANEL+MG CARBON DIOXIDE, TOTAL [MOLES/VOL UME] IN SERUM OR PLASMA 29 mmol/L 22 - 29 02/13 Specimen Type: PLASMA No comment entered. Ordering Provider: ANKUSH BOWMAN Report Released Date/Time: Feb 05, 2023 03:10 PM Reporting Lab: [facility] [address] Performing Lab: [facility] [address] [place] [facility] BASIC METABOLI C PANEL+MG CALCIUM [MASS/VOLU ME] IN SERUM OR PLASMA 9.2 mg/dL 8.4 - 10.2 02/13 Specimen Type: PLASMA No comment entered. Ordering Provider: ANKUSH BOWMAN Report Released Date/Time: Feb 05, 2023 03:10 PM Reporting Lab: [facility] [address] Performing Lab: [facility] [address] [place] [facility] BASIC METABOLI C PANEL+MG MAGNESIUM [MASS/VOLU ME] IN SERUM OR PLASMA 2.0 mg/dL 1.6 - 2.6 02/13 Specimen Type: PLASMA No comment entered. Ordering Provider: ANKUSH BOWMAN Report Released Date/Time: Feb 05, 2023 03:10 PM Reporting Lab: [facility] [address] Performing Lab: [facility] [address] [place] [facility] BASIC METABOLI C PANEL+MG ANION GAP IN SERUM OR PLASMA 7 mmol/L 5 - 15 02/13 Specimen Type: PLASMA No comment entered. Ordering Provider: ANKUSH BOWMAN Report Released Date/Time: Feb 05, 2023 03:10 PM Reporting Lab: [facility] [address] Performing Lab: [facility] [address] [place] [facility] BASIC METABOLI C PANEL+MG GLOMERULAR FILTRATION RATE/1.73 SQ M.PREDICTE D [VOLUME RATE/AREA] IN SERUM, PLASMA OR BLOOD BY CREATININE -BASED FORMULA (CKD-EPI) >90 60 02/13 Specimen Type: PLASMA No comment entered. Ordering Provider: ANKUSH BOWMAN Report Released Date/Time: Feb 05, 2023 03:10 PM Reporting Lab: [facility] [address] Performing Lab: [facility] [address] [place] [facility] URINALYS IS COLOR OF URINE YELLOW 10/08 Specimen Type: URINE No comment entered. Ordering Provider: ANKUSH BOWMAN Report Released Date/Time: Sep 24, 2022 01:55 PM Reporting Lab: [facility] [address] Performing Lab: [facility] [address] [place] [facility] URINALYS IS SPECIFIC GRAVITY OF URINE 1.023 1.003 - 1.035 10/08 Specimen Type: URINE No comment entered. Ordering Provider: ANKUSH BOWMAN Report Released Date/Time: Sep 24, 2022 01:55 PM Reporting Lab: [facility] [address] Performing Lab: [facility] [address] [place] [facility] URINALYS IS BILIRUBIN. TOTAL [PRESENCE] IN URINE BY TEST STRIP NEGATIVE 10/08 Specimen Type: URINE No comment entered. Ordering Provider: ANKUSH BOWMAN Report Released Date/Time: Sep 24, 2022 01:55 PM Reporting Lab: [facility] [address] Performing Lab: [facility] [address] [place] [facility] URINALYS IS KETONES [MASS/VOLU ME] IN URINE BY TEST STRIP NEGATIVE 10/08 Specimen Type: URINE No comment entered. Ordering Provider: ANKUSH BOWMAN Report Released Date/Time: Sep 24, 2022 01:55 PM Reporting Lab: [facility] [address] Performing Lab: [facility] [address] [place] [facility] URINALYS IS GLUCOSE [MASS/VOLU ME] IN URINE BY TEST STRIP NEGATIVE mg/dL <30 - 30 10/08 Specimen Type: URINE No comment entered. Ordering Provider: ANKUSH BOWMAN Report Released Date/Time: Sep 24, 2022 01:55 PM Reporting Lab: [facility] [phone] Performing Lab: [facility] [id number] [place] [facility] URINALYS IS PROTEIN [MASS/VOLU ME] IN URINE BY TEST STRIP 30 mg/dL <20 - 20 10/08 Specimen Type: URINE No comment entered. Ordering Provider: ANKUSH BOWMAN Report Released Date/Time: Sep 24, 2022 01:55 PM Reporting Lab: [facility] [phone] Performing Lab: [facility] [id number] [place] [facility] URINALYS IS PH OF URINE BY TEST STRIP 7.5 5.0 - 8.0 10/08 Specimen Type: URINE No comment entered. Ordering Provider: ANKUSH BOWMAN Report Released Date/Time: Sep 24, 2022 01:55 PM Reporting Lab: [facility] [address] Performing Lab: [facility] [address] [place] [facility] URINALYS IS LEUKOCYTES [#/AREA] IN URINE SEDIMENT BY MICROSCOPY HIGH POWER FIELD >180/[HP F] 0 - 7 10/08 H Specimen Type: URINE No comment entered. Ordering Provider: ANKUSH BOWMAN Report Released Date/Time: Sep 24, 2022 01:55 PM Reporting Lab: [facility] [address] Performing Lab: [facility] [address] [place] [facility] URINALYS IS BACTERIA [PRESENCE] IN URINE SEDIMENT BY LIGHT MICROSCOPY MANY 10/08 Specimen Type: URINE No comment entered. Ordering Provider: ANKUSH BOWMAN Report Released Date/Time: Sep 24, 2022 01:55 PM Reporting Lab: [facility] [address] Performing Lab: [facility] [address] [place] [facility] URINALYS IS ERYTHROCYT ES [#/AREA] IN URINE SEDIMENT BY MICROSCOPY HIGH POWER FIELD 33 /[HPF] 0 - 3 10/08 H Specimen Type: URINE No comment entered. Ordering Provider: ANKUSH BOWMAN Report Released Date/Time: Sep 24, 2022 01:55 PM Reporting Lab: [facility] [address] Performing Lab: [facility] [address] [place] [facility] URINALYS IS APPEARANCE OF URINE EX.TURBI D 10/08 Specimen Type: URINE No comment entered. Ordering Provider: ANKUSH BOWMAN Report Released Date/Time: Sep 24, 2022 01:55 PM Reporting Lab: [facility] [address] Performing Lab: [facility] [address] [place] [facility] URINALYS IS EPITHELIAL CELLS.SQUA MOUS [#/AREA] IN URINE SEDIMENT BY MICROSCOPY HIGH POWER FIELD 1 /[HPF] 10/08 Specimen Type: URINE No comment entered. Ordering Provider: ANKUSH BOWMAN Report Released Date/Time: Sep 24, 2022 01:55 PM Reporting Lab: [facility] [address] Performing Lab: [facility] [address] [place] [facility] URINALYS IS HEMOGLOBIN [PRESENCE] IN URINE BY TEST STRIP 1+ 10/08 Specimen Type: URINE No comment entered. Ordering Provider: ANKUSH BOWMAN Report Released Date/Time: Sep 24, 2022 01:55 PM Reporting Lab: [facility] [address] Performing Lab: [facility] [address] [place] [facility] URINALYS IS NITRITE [PRESENCE] IN URINE BY TEST STRIP NEGATIVE 10/08 Specimen Type: URINE No comment entered. Ordering Provider: ANKUSH BOWMAN Report Released Date/Time: Sep 24, 2022 01:55 PM Reporting Lab: [facility] [address] Performing Lab: [facility] [address] [place] [facility] URINALYS IS LEUKOCYTE CLUMPS [#/VOLUME] IN URINE BY AUTOMATED COUNT PRESENT 10/08 Specimen Type: URINE No comment entered. Ordering Provider: ANKUSH BOWMAN Report Released Date/Time: Sep 24, 2022 01:55 PM Reporting Lab: [facility] [address] Performing Lab: [facility] [address] [place] [facility] URINALYS IS LEUKOCYTE ESTERASE [PRESENCE] IN URINE BY TEST STRIP 500 10/08 Specimen Type: URINE No comment entered. Ordering Provider: ANKUSH BOWMAN Report Released Date/Time: Sep 24, 2022 01:55 PM Reporting Lab: [facility] [address] Performing Lab: [facility] [address] [place] [facility] ALBUMIN ALBUMIN [MASS/VOLU ME] IN SERUM OR PLASMA 4.2 g/dL 3.5 - 5.2 10/08 Specimen Type: PLASMA No comment entered. Ordering Provider: ANKUSH BOWMAN Report Released Date/Time: Sep 24, 2022 01:55 PM Reporting Lab: [facility] [address] Performing Lab: [facility] [address] [place] [facility] PRE-ALBU MIN PREALBUMIN [MASS/VOLU ME] IN SERUM OR PLASMA 28.4 mg/dL 14.0 - 45.0 10/08 Specimen Type: SERUM No comment entered. Ordering Provider: ANKUSH BOWMAN Report Released Date/Time: Sep 24, 2022 01:55 PM Reporting Lab: [facility] [address] Performing Lab: [facility] [address] [place] [facility] COMPREHE NSIVE METABOLI C PANEL+MG CREATININE [MASS/VOLU ME] IN SERUM OR PLASMA 0.7 mg/dL 0.7 - 1.2 10/08 Specimen Type: PLASMA No comment entered. Ordering Provider: ANKUSH BOWMAN Report Released Date/Time: Sep 24, 2022 01:55 PM Reporting Lab: [facility] [address] Performing Lab: [facility] [address] [place] [facility] COMPREHE NSIVE METABOLI C PANEL+MG UREA NITROGEN [MASS/VOLU ME] IN SERUM OR PLASMA 16 mg/dL 8 - 26 10/08 Specimen Type: PLASMA No comment entered. Ordering Provider: ANKUSH BOWMAN Report Released Date/Time: Sep 24, 2022 01:55 PM Reporting Lab: [facility] [address] Performing Lab: [facility] [address] [place] [facility] COMPREHE NSIVE METABOLI C PANEL+MG GLUCOSE [MASS/VOLU ME] IN SERUM OR PLASMA 94 mg/dL 70 - 100 10/08 Specimen Type: PLASMA No comment entered. Ordering Provider: ANKUSH BOWMAN Report Released Date/Time: Sep 24, 2022 01:55 PM Reporting Lab: [facility] [address] Performing Lab: [facility] [address] [place] [facility] COMPREHE NSIVE METABOLI C PANEL+MG SODIUM [MOLES/VOL UME] IN SERUM OR PLASMA 138 mmol/L 136 - 145 10/08 Specimen Type: PLASMA No comment entered. Ordering Provider: ANKUSH BOWMAN Report Released Date/Time: Sep 24, 2022 01:55 PM Reporting Lab: [facility] [address] Performing Lab: [facility] [address] [place] [facility] COMPREHE NSIVE METABOLI C PANEL+MG POTASSIUM [MOLES/VOL UME] IN SERUM OR PLASMA 3.9 mmol/L 3.5 - 5.1 10/08 Specimen Type: PLASMA No comment entered. Ordering Provider: ANKUSH BOWMAN Report Released Date/Time: Sep 24, 2022 01:55 PM Reporting Lab: [facility] [address] Performing Lab: [facility] [address] [place] [facility] COMPREHE NSIVE METABOLI C PANEL+MG CHLORIDE [MOLES/VOL UME] IN SERUM OR PLASMA 101 mmol/L 98 - 107 10/08 Specimen Type: PLASMA No comment entered. Ordering Provider: ANKUSH BOWMAN Report Released Date/Time: Sep 24, 2022 01:55 PM Reporting Lab: [facility] [address] Performing Lab: [facility] [address] [place] [facility] COMPREHE NSIVE METABOLI C PANEL+MG CARBON DIOXIDE, TOTAL [MOLES/VOL UME] IN SERUM OR PLASMA 28 mmol/L 22 - 29 10/08 Specimen Type: PLASMA No comment entered. Ordering Provider: ANKUSH BOWMAN Report Released Date/Time: Sep 24, 2022 01:55 PM Reporting Lab: [facility] [address] Performing Lab: [facility] [address] [place] [facility] COMPREHE NSIVE METABOLI C PANEL+MG CALCIUM [MASS/VOLU ME] IN SERUM OR PLASMA 9.7 mg/dL 8.4 - 10.2 10/08 Specimen Type: PLASMA No comment entered. Ordering Provider: ANKUSH BOWMAN Report Released Date/Time: Sep 24, 2022 01:55 PM Reporting Lab: [facility] [address] Performing Lab: [facility] [address] [place] [facility] COMPREHE NSIVE METABOLI C PANEL+MG PROTEIN [MASS/VOLU ME] IN SERUM OR PLASMA 7.6 g/dL 6.0 - 8.3 10/08 Specimen Type: PLASMA No comment entered. Ordering Provider: ANKUSH BOWMAN Report Released Date/Time: Sep 24, 2022 01:55 PM Reporting Lab: [facility] [address] Performing Lab: [facility] [address] [place] [facility] COMPREHE NSIVE METABOLI C PANEL+MG ALBUMIN [MASS/VOLU ME] IN SERUM OR PLASMA 4.2 g/dL 3.5 - 5.2 10/08 Specimen Type: PLASMA No comment entered. Ordering Provider: ANKUSH BOWMAN Report Released Date/Time: Sep 24, 2022 01:55 PM Reporting Lab: [facility] [address] Performing Lab: [facility] [address] [place] [facility] COMPREHE NSIVE METABOLI C PANEL+MG BILIRUBIN. TOTAL [MASS/VOLU ME] IN SERUM OR PLASMA 0.6 mg/dL 0.2 - 1.2 10/08 Specimen Type: PLASMA No comment entered. Ordering Provider: ANKUSH BOWMAN Report Released Date/Time: Sep 24, 2022 01:55 PM Reporting Lab: [facility] [address] Performing Lab: [facility] [address] [place] [facility] COMPREHE NSIVE METABOLI C PANEL+MG MAGNESIUM [MASS/VOLU ME] IN SERUM OR PLASMA 2.1 mg/dL 1.6 - 2.6 10/08 Specimen Type: PLASMA No comment entered. Ordering Provider: ANKUSH BOWMAN Report Released Date/Time: Sep 24, 2022 01:55 PM Reporting Lab: [facility] [address] Performing Lab: [facility] [address] [place] [facility] COMPREHE NSIVE METABOLI C PANEL+MG ANION GAP IN SERUM OR PLASMA 9 mmol/L 5 - 15 10/08 Specimen Type: PLASMA No comment entered. Ordering Provider: ANKUSH BOWMAN Report Released Date/Time: Sep 24, 2022 01:55 PM Reporting Lab: [facility] [address] Performing Lab: [facility] [address] [place] [facility] COMPREHE NSIVE METABOLI C PANEL+MG ALKALINE PHOSPHATAS E [ENZYMATIC ACTIVITY/V OLUME] IN SERUM OR PLASMA 96 U/L 40 - 150 10/08 Specimen Type: PLASMA No comment entered. Ordering Provider: ANKUSH BOWMAN Report Released Date/Time: Sep 24, 2022 01:55 PM Reporting Lab: [facility] [address] Performing Lab: [facility] [address] [place] [facility] COMPREHE NSIVE METABOLI C PANEL+MG ALANINE AMINOTRANS FERASE [ENZYMATIC ACTIVITY/V OLUME] IN SERUM OR PLASMA 29 U/L <55 - 55 10/08 Specimen Type: PLASMA No comment entered. Ordering Provider: ANKUSH BOWMAN Report Released Date/Time: Sep 24, 2022 01:55 PM Reporting Lab: [facility] [address] Performing Lab: [facility] [address] [place] [facility] COMPREHE NSIVE METABOLI C PANEL+MG ASPARTATE AMINOTRANS FERASE [ENZYMATIC ACTIVITY/V OLUME] IN SERUM OR PLASMA 22 U/L <34 - 34 10/08 Specimen Type: PLASMA No comment entered. Ordering Provider: ANKUSH BOWMAN Report Released Date/Time: Sep 24, 2022 01:55 PM Reporting Lab: [facility] [address] Performing Lab: [facility] [address] [facility] IS [facility] COMPREHE NSIVE METABOLI C PANEL+MG GLOMERULAR FILTRATION RATE/1.73 SQ M.PREDICTE D [VOLUME RATE/AREA] IN SERUM, PLASMA OR BLOOD BY CREATININE -BASED FORMULA (CKD-EPI) >90 60 10/08 Specimen Type: PLASMA No comment entered. Ordering Provider: ANKUSH BOWMAN Report Released Date/Time: Sep 24, 2022 01:55 PM Reporting Lab: [facility] [address] Performing Lab: [facility] [address] [facility] CBC & DIFF LEUKOCYTES [#/VOLUME] IN BLOOD BY AUTOMATED COUNT 7.32 10*3/uL 4.0 - 11.0 10/08 Specimen Type: BLOOD Comment: Automated Differentia l Performed Ordering Provider: ANKUSH BOWMAN Report Released Date/Time: Sep 24, 2022 01:55 PM Reporting Lab: [facility] [address] Performing Lab: [facility] [address] [facility] IS [facility] CBC & DIFF ERYTHROCYT ES [#/VOLUME] IN BLOOD BY AUTOMATED COUNT 4.80 10*6/uL 4.6 - 6.2 10/08 Specimen Type: BLOOD Comment: Automated Differentia l Performed Ordering Provider: ANKUSH BOWMAN Report Released Date/Time: Sep 24, 2022 01:55 PM Reporting Lab: [facility] [address] Performing Lab: [facility] [address] [facility] IS [facility] CBC & DIFF HEMOGLOBIN [MASS/VOLU ME] IN BLOOD 14.7 g/dL 13.5 - 17.9 10/08 Specimen Type: BLOOD Comment: Automated Differentia l Performed Ordering Provider: ANKUSH BOWMAN Report Released Date/Time: Sep 24, 2022 01:55 PM Reporting Lab: [facility] [address] Performing Lab: [facility] [address] [place] [facility] CBC & DIFF HEMATOCRIT [VOLUME FRACTION] OF BLOOD BY AUTOMATED COUNT 44.2 41 - 54 10/08 Specimen Type: BLOOD Comment: Automated Differentia l Performed Ordering Provider: ANKUSH BOWMAN Report Released Date/Time: Sep 24, 2022 01:55 PM Reporting Lab: [facility] [address] Performing Lab: [facility] [address] [place] [facility] CBC & DIFF MCV [ENTITIC VOLUME] BY AUTOMATED COUNT 92.1 fL 80 - 100 10/08 Specimen Type: BLOOD Comment: Automated Differentia l Performed Ordering Provider: ANKUSH BOWMAN Report Released Date/Time: Sep 24, 2022 01:55 PM Reporting Lab: [facility] [address] Performing Lab: [facility] [address] [place] [facility] CBC & DIFF MCH [ENTITIC MASS] BY AUTOMATED COUNT 30.6 pg 27 - 33 10/08 Specimen Type: BLOOD Comment: Automated Differentia l Performed Ordering Provider: ANKUSH BOWMAN Report Released Date/Time: Sep 24, 2022 01:55 PM Reporting Lab: [facility] [address] Performing Lab: [facility] [address] [place] [facility] CBC & DIFF MCHC [MASS/VOLU ME] BY AUTOMATED COUNT 33.3 g/dL 32.0 - 37.5 10/08 Specimen Type: BLOOD Comment: Automated Differentia l Performed Ordering Provider: ANKUSH BOWMAN Report Released Date/Time: Sep 24, 2022 01:55 PM Reporting Lab: [facility] [address] Performing Lab: [facility] [address] [place] [facility] CBC & DIFF PLATELETS [#/VOLUME] IN BLOOD BY AUTOMATED COUNT 144 10*3/uL 150 - 400 10/08 L Specimen Type: BLOOD Comment: Automated Differentia l Performed Ordering Provider: ANKUSH BOWMAN Report Released Date/Time: Sep 24, 2022 01:55 PM Reporting Lab: [facility] [address] Performing Lab: [facility] [address] [place] [facility] CBC & DIFF PLATELET MEAN VOLUME [ENTITIC VOLUME] IN BLOOD BY AUTOMATED COUNT 10.8 fL 7.4 - 10.4 10/08 H Specimen Type: BLOOD Comment: Automated Differentia l Performed Ordering Provider: ANKUSH BOWMAN Report Released Date/Time: Sep 24, 2022 01:55 PM Reporting Lab: [facility] [address] Performing Lab: [facility] [address] [place] [facility] CBC & DIFF NEUTROPHIL S/100 LEUKOCYTES IN BLOOD BY MANUAL COUNT 55.5 10/08 Specimen Type: BLOOD Comment: Automated Differentia l Performed Ordering Provider: ANKUSH BOWMAN Report Released Date/Time: Sep 24, 2022 01:55 PM Reporting Lab: [facility] [address] Performing Lab: [facility] [address] [place] [facility] CBC & DIFF LYMPHOCYTE S/100 LEUKOCYTES IN BLOOD BY MANUAL COUNT 31.4 10/08 Specimen Type: BLOOD Comment: Automated Differentia l Performed Ordering Provider: ANKUSH BOWMAN Report Released Date/Time: Sep 24, 2022 01:55 PM Reporting Lab: [facility] [address] Performing Lab: [facility] [address] [place] [facility] CBC & DIFF MONOCYTES/ 100 LEUKOCYTES IN BLOOD BY AUTOMATED COUNT 10.2 10/08 Specimen Type: BLOOD Comment: Automated Differentia l Performed Ordering Provider: ANKUSH BOWMAN Report Released Date/Time: Sep 24, 2022 01:55 PM Reporting Lab: [facility] [address] Performing Lab: [facility] [address] [place] [facility] CBC & DIFF EOSINOPHIL S/100 LEUKOCYTES IN BLOOD BY AUTOMATED COUNT 2.2 10/08 Specimen Type: BLOOD Comment: Automated Differentia l Performed Ordering Provider: ANKUSH BOWMAN Report Released Date/Time: Sep 24, 2022 01:55 PM Reporting Lab: [facility] [address] Performing Lab: [facility] [address] [place] [facility] CBC & DIFF BASOPHILS/ 100 LEUKOCYTES IN BLOOD BY MANUAL COUNT 0.4 10/08 Specimen Type: BLOOD Comment: Automated Differentia l Performed Ordering Provider: ANKUSH BOWMAN Report Released Date/Time: Sep 24, 2022 01:55 PM Reporting Lab: [facility] [address] Performing Lab: [facility] [address] [place] [facility] CBC & DIFF ERYTHROCYT E DISTRIBUTI ON WIDTH [RATIO] BY AUTOMATED COUNT 15.9 11.5 - 14.5 10/08 H Specimen Type: BLOOD Comment: Automated Differentia l Performed Ordering Provider: ANKUSH BOWMAN Report Released Date/Time: Sep 24, 2022 01:55 PM Reporting Lab: [facility] [address] Performing Lab: [facility] [address] [place] [facility] CBC & DIFF LYMPHOCYTE S [#/VOLUME] IN BLOOD BY AUTOMATED COUNT 2.30 10*3/uL 1.0 - 4.0 10/08 Specimen Type: BLOOD Comment: Automated Differentia l Performed Ordering Provider: ANKUSH BOWMAN Report Released Date/Time: Sep 24, 2022 01:55 PM Reporting Lab: [facility] [address] Performing Lab: [facility] [address] [place] [facility] CBC & DIFF MONOCYTES [#/VOLUME] IN BLOOD BY AUTOMATED COUNT 0.75 10*3/uL 0.1 - 1.0 10/08 Specimen Type: BLOOD Comment: Automated Differentia l Performed Ordering Provider: ANKUSH BOWMAN Report Released Date/Time: Sep 24, 2022 01:55 PM Reporting Lab: [facility] [address] Performing Lab: [facility] [address] [place] [facility] CBC & DIFF NEUTROPHIL S [#/VOLUME] IN BLOOD BY AUTOMATED COUNT 4.06 10*3/uL 2.0 - 7.7 11/28 /2022 Specimen Type: BLOOD Comment: Automated Differentia l Performed Ordering Provider: ANKUSH BOWMAN Report Released Date/Time: Sep 24, 2022 01:55 PM Reporting Lab: [facility] [address] Performing Lab: [facility] [address] [place] [facility] CBC & DIFF EOSINOPHIL S [#/VOLUME] IN BLOOD BY AUTOMATED COUNT 0.16 10*3/uL 0 - 0.5 10/08 Specimen Type: BLOOD Comment: Automated Differentia l Performed Ordering Provider: ANKUSH BOWMAN Report Released Date/Time: Sep 24, 2022 01:55 PM Reporting Lab: [facility] [address] Performing Lab: [facility] [address] [place] [facility] CBC & DIFF BASOPHILS [#/VOLUME] IN BLOOD BY AUTOMATED COUNT 0.03 10*3/uL 0 - 0.2 10/08 Specimen Type: BLOOD Comment: Automated Differentia l Performed Ordering Provider: ANKUSH BOWMAN Report Released Date/Time: Sep 24, 2022 01:55 PM Reporting Lab: [facility] [address] Performing Lab: [facility] [address] [place] [facility] CBC & DIFF IG(META,MY MALACHI,PRO) 0.3 10/08 Specimen Type: BLOOD Comment: Automated Differentia l Performed Ordering Provider: ANKUSH BOWMAN Report Released Date/Time: Sep 24, 2022 01:55 PM Reporting Lab: [facility] [address] Performing Lab: [facility] [address] [place] [facility] CBC & DIFF IMMATURE GRANULOCYT ES [PRESENCE] IN BLOOD BY AUTOMATED COUNT 0.02 10*3/uL 0 - 0.1 10/08 Specimen Type: BLOOD Comment: Automated Differentia l Performed Ordering Provider: ANKUSH BOWMAN Report Released Date/Time: Sep 24, 2022 01:55 PM Reporting Lab: [facility] [address] Performing Lab: [facility] [address] [place] [facility] CYSTATIN C WITH EGFR CYSTATIN C [MASS/VOLU ME] IN SERUM OR PLASMA 1.38 mg/L 0.51 - 1.05 10/08 H Specimen Type: PLASMA No comment entered. Ordering Provider: ANKUSH BOWMAN Report Released Date/Time: Sep 24, 2022 01:55 PM Reporting Lab: [facility] [address] Performing Lab: [facility] [address] [place] [facility] CYSTATIN C WITH EGFR CYSTATIN C AND GLOMERULAR FILTRATION RATE BY CYSTATIN-B ASED FORMULA PANEL - SERUM OR PLASMA 48 60 10/08 L Specimen Type: PLASMA No comment entered. Ordering Provider: ANKUSH BOWMAN Report Released Date/Time: Sep 24, 2022 01:55 PM Reporting Lab: [facility] [address] Performing Lab: [facility] [address] [place] [facility] VIT D 25-OH,TO ZAMZAM 25-HYDROXY VITAMIN D3 [MASS/VOLU ME] IN SERUM OR PLASMA 54 ng/mL 12 - 50 10/08 H Specimen Type: SERUM No comment entered. Ordering Provider: ANKUSH BOWMAN Report Released Date/Time: Sep 24, 2022 01:55 PM Reporting Lab: [facility] [address] Performing Lab: [facility] [address] [place] [facility] Encounters Combined [...] [place] [facility] Outpatient Encounter [id number] [facility] [place] [facility] HC PRO PHONE CALL 11-20 MIN [id number] Diagnos is: ICD-10- CM Z73.6 Limitat ion of activit ies due to disabil ity<br/ > BOUSLOG,RY AN P 04/23 [place] [facility] [place] [facility] Outpatient Encounter [id number] 04/24 [facility] [place] [facility] Outpatient Encounter [id number] 05/24 [facility] [place] [facility] OFF/OP EST MAY X REQ PHY/QHP [id number] Diagnos is: ICD-10- CM G82.20 Paraple mary kay, unspeci fied
VIOLA YOON NDA 05/28 [facility] WHEELCHAIR MNGMENT TRAINING [id number] Diagnos is: ICD-10- CM Z73.6 Limitat ion of activit ies due to disabil ity<br/ > BOUSLOG,RY AN P 06/10 [facility] Outpatient Encounter [id number] 10/28 [facility] [place] [facility] Outpatient Encounter [id number] 11/20 [facility] [place] [facility] Outpatient Encounter [id number] 05/12 [facility] [place] [facility] Outpatient Encounter [id number] 07/23 [facility] [place] [facility] Outpatient Encounter [id number] DEE ANDERS 07/28 [facility] Social History Combined list of available smoking, tobacco, and other social history from 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 Social History Type Response Date Comment Sour e Tobacco smoking status [facility] NEVER USED 05/28/20 22 [facility] This section is an empty social history section. DoD Advance Directives List of completed, amended, or rescinded Advance Directives on record at Department of 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 An actual copy of the Directive is not included. Date Advance Directive Provider Source 02/05/2023 ADVANCE DIRECTIVE DISCUSSION [facility]
--- OUTSIDE RECORDS SUMMARY | 2024-08-17 12:47 | XMS_ITS | Encounter Summary ---
Author Organization [facility] Address [address], [place] [address] Care Team Providers Care Helicopter Pilot Instructor Name Role Phone Franklin Squires MD Primary Care Provider [phone] Encounter Details Date Type Department Care Team (Latest Contact Info) Description 12/11/2017 Correspondence Physiatry/Physical Medicine at [facility] [address] [facility], [place] [address] May Randle MD [address] [place] [address] [employer] Social History Tobacco Use [...] on filedocumented in this encounter Care Teams Helicopter Pilot Instructor Relationship Specialty Start Date End Date Franklin Squires MD [address] [place] [address] [place] [address] PCP - General Family Practice 03/08/16 documented as of this encounter
--- OUTSIDE RECORDS SUMMARY | 2024-08-17 12:47 | XMS_ITS | Encounter Summary ---
Author Organization [facility] Address [address] [address] Care Team Providers Care Sheet Metal Apprentice Name Role Phone Franklin Squires MD Primary Care Provider Encounter Details Date Type Department Care Team (Late st Contact Info) Description 02/09/2016 Correspondence [facility] [address] [facility]. [place], [place] [id number] Jodi Aguila PA-C [address] [place] [address] PATIENT LIFT PRESCRIPTION Social History Tobacco Use [...] in this encounter Care Teams Sheet Metal Apprentice Relationship Specialty Start Date End Date Franklin Squires MD [address] [facility] [place] [phone] PCP - General Family Practice 03/08/16 documented as of this encounter
--- OUTSIDE RECORDS SUMMARY | 2024-08-17 12:47 | XMS_ITS | Clinical Summary ---
[facility] Address [address] [place] [address] Care Team Providers Care Makeup Instructor Name Role Phone Franklin Squires MD Primary Care Provider [phone] Source Comments You are receiving this document [...] for each transition of care or referral. [employer] Allergies Active Allergy Reactions Criticality Noted Date [...] 0 06/10/2014 History of anticoagulant therapy 02/17/2014 retirement current use of anticoagulant therapy 0 02/17/2014 [...] Comments Blood Pressure 120/63 01/18/2022 12:59 PM BASTING CLEANER Pulse 87 01/18/2022 12:59 PM BASTING CLEANER Temperature 36.3 ??C (97.4 ??F) 01/18/2022 12:59 [...] 08/06/2021, 01/25/2021, 01/02/2021 Influenza (#1) 2024 09/03/2021, 10/07/2020, 08/20/2019, Additional history exists Pneumococcal 65+ Yrs [...] on patient's age to complete this topic RSV Aged Out No longer eligi ble based on patient's age to complete this topic MCV4 Aged Out No longer eligi ble based on patient's age to complete this topic Medical Devices Implanted Type Area Licensing Manager Device Identifier Shelf Expiration Date Model / Serial / Lot [id number] 4ml Tisseel Explanted:([place] ntity not on file) BIOLOGIC N/A: NECK Lynne Fenwall 09/10/2011 [id number] / [id number] / [id number] Description:posterior Cath Intrathecal Indura - [id number] Implanted:Qty: 1 on 05/09/2010 at [facility] DEVICE Right: LUMBAR SPINE [employer] 01/18/2012 8709 / N/A / [id number] Cath Intrathecal Indura - [id number] Implanted:Qty: 1 on 05/29/2010 at [facility] DEVICE [employer] 8709 / / Scr Indira Conic 7.3x80 - [id number] Implanted:Qty: 1 on 03/13/2011 at [facility] DEVICE Right: FEMUR DISTAL Synthes [facility] 0 / NONE / NONE Plt Lcp Cndl Rt 4.5x170 6h - [id number] Implanted:Qty: 1 on 03/13/2011 at [facility] DEVICE Right: FEMUR DISTAL [employer] [place] 222.656 / NONE / NONE Description:6 hole 170mm rig ht 4.5mm lcp condylar plate Scr Didier Ss Sftp 4.5x40 - [id number] Implanted:Qty: 1 on 03/13/2011 at [facility] DEVICE Left: FEMUR DISTAL [employer] [place] 214.840 / NONE / NONE Scr Didier Ss Sftp 4.5x50 - [id number] Implanted:Qty: 1 on 03/13/2011 at [facility] DEVICE Left: FEMUR DISTAL [employer] [place] 214.850 / NONE / NONE Scr Indira Lk 5.0x80 - [id number] Implanted:Qty: 2 on 03/13/2011 at [facility] DEVICE Left: FEMUR DISTAL [employer] [place] 02.205.08 0 / NONE / NONE Scr Indira Lk 5.0x85 - [id number] Implanted:Qty: 2 on 03/13/2011 at [facility] DEVICE Left: FEMUR DISTAL [employer] [place] 02.205.08 5 / NONE / NONE Scr Lk Sftp T25 5.0x50 - [id number] Implanted:Qty: 1 on 03/13/2011 at [facility] DEVICE Left: FEMUR DISTAL [employer] [place] 212.219 / NONE / NONE Scr Lk Sftp T25 5.0x60 - [id number] Implanted:Qty: 1 on 03/13/2011 at [facility] DEVICE Left: FEMUR DISTAL [employer] [place] 212.221 / NONE / NONE Scr Indira Conic 7.3x85 - [id number] Implanted:Qty: 1 on 03/13/2011 at [facility] DEVICE Left: FEMUR DISTAL [employer] [place] 02.207.28 5 / NONE / NONE Plt Lcp Cndl Lt 4.5x170 6h - [id number] Implanted:Qty: 1 on 03/13/2011 at [facility] DEVICE Left: FEMUR DISTAL [employer] [place] 222.657 / NONE / NONE Description:6 hole 170mmleng th left 4.5mm lcp condylar plate. Scr Didier Sftp 3.5x60 F-Thrd - [id number] Implanted:Qty: 1 on 03/13/2011 at [facility] DEVICE Left: TIBIA PROXIMAL [employer] [place] 204.860 / NONE / NONE Scr Star Lk Sftp 3.5x32 - [id number] Implanted:Qty: 1 on 03/13/2011 at [facility] DEVICE Left: TIBIA PROXIMAL [employer] [place] 212.112 / NONE / NONE Scr Star Lk Sftp 3.5x55 - [id number] Implanted:Qty: 2 on 03/13/2011 at [facility] DEVICE Left: TIBIA PROXIMAL [employer] [place] 212.123 / NONE / NONE Scr Star Lk Sftp 3.5x60 - [id number] Implanted:Qty: 2 on 03/13/2011 at [facility] DEVICE Left: TIBIA PROXIMAL [employer] [place] 212.124 / NONE / NONE Plt Lcp M/Prox Lt 3.5x94 4h - [id number] Implanted:Qty: 1 on 03/13/2011 at [facility] DEVICE Left: TIBIA PROXIMAL [employer] [place] 239.955 / NONE / NONE Scr Didier Ss Sftp 4.5x36 - [id number] Implanted:Qty: 1 on 03/13/2011 at [facility] DEVICE Right: FEMUR DISTAL [employer] [place] 214.836 / NONE / NONE Scr Didier Ss Sftp 4.5x44 - [id number] Implanted:Qty: 1 on 03/13/2011 at [facility] DEVICE Right: FEMUR DISTAL [employer] [place] 214.844 / NONE / NONE Scr Indira Lk 5.0x75 - [id number] Implanted:Qty: 1 on 03/13/2011 at [facility] DEVICE Right: FEMUR DISTAL [employer] [place] 02.205.07 5 / NONE / NONE Scr Indira Lk 5.0x85 - [id number] Implanted:Qty: 2 on 03/13/2011 at [facility] DEVICE Right: FEMUR DISTAL [employer] [place] 02.205.08 5 / NONE / NONE Scr Lk Sftp T25 5.0x44 - [id number] Implanted:Qty: 1 on 03/13/2011 at [facility] DEVICE Right: FEMUR DISTAL [employer] [place] 212.216 / NONE / NONE Scr Lk Sftp T25 5.0x65 - [id number] Implanted:Qty: 1 on 03/13/2011 at [facility] DEVICE Right: FEMUR DISTAL [employer] [place] 212.222 / NONE / NONE Plt Lp T Ti Str 4h - [id number] Implanted:Qty: 3 on 07/28/2014 by Cooper Shelley MD at [facility] DEVICE Right: SKULL [employer] [place] 421.504 / / Scr Matrix Sfdr 4mm - [id number] Implanted:Qty: 6 on 07/28/2014 by Cooper Shelley MD at [facility] DEVICE Right: SKULL [employer] [place] 04.503.10 4.01 / / Lead Linear 3-4 8 Contact 50cm - [id number] Implanted:Qty: 1 on 03/08/2016 by Zelalem Cohen DO at [facility] DEVICE N/A: OTHER-SEE DESCRIPTION [facility] [facility] 09/10/2017 [id number] 2500 / / [id number] Description:LUMBAR Lead Linear 3-4 8 Contact 50cm - [id number] Implanted:Qty: 1 on 03/08/2016 by Zelalem Cohen DO at [facility] DEVICE N/A: OTHER-SEE DESCRIPTION [employer] [facility] 09/10/2017 [id number] 2500 / / [id number] Description:LUMBAR Lead Linear 3-4 8 Contact 50cm - [id number] Implanted:Qty: 1 on 03/08/2016 by Zelalem Cohen DO at [facility] DEVICE N/A: OTHER-SEE DESCRIPTION [employer] [facility] 09/10/2017 [id number] 2500 / / [id number] Description:LUMBAR Lead Linear 3-4 8 Contact 50cm - [id number] Implanted:Qty: 1 on 03/08/2016 by Zelalem Cohen DO at [facility] DEVICE N/A: OTHER-SEE DESCRIPTION [employer] [facility] 09/10/2017 [id number] 2500 / / [id number] Description:LUMBAR Lead Linear 3-4 8 Contact 50cm - [id number] Implanted:Qty: 1 on 05/24/2016 by Zelalem Cohen DO at [facility] DEVICE N/A: SPINE LUMBAR POSTERIOR [employer] [facility] 01/31/2018 [id number] 2500 / [id number] / Lead Linear 3-4 8 Contact 50cm - [id number] Implanted:Qty: 1 on 05/24/2016 by Zelalem Cohen DO at [facility] DEVICE N/A: SPINE LUMBAR POSTERIOR [employer] [facility] 04/26/2018 [id number] 2500 / [id number] / Lead Linear 3-4 8 Contact 50cm - [id number] Implanted:Qty: 1 on 05/24/2016 by Zelalem Cohen DO at [facility] DEVICE N/A: SPINE LUMBAR POSTERIOR [employer] [facility] 04/26/2018 [id number] 2500 / [id number] / Lead Linear 3-4 8 Contact 50cm - [id number] Implanted:Qty: 1 on 05/24/2016 by Zelalem Cohen DO at [facility] DEVICE N/A: SPINE LUMBAR POSTERIOR [employer] [facility] 04/26/2018 [id number] 2500 / [id number] / Generator Pulse Spectra - [id number] Implanted:Qty: 1 on 05/24/2016 by Zelalem Cohen DO at [facility] DEVICE N/A: SPINE LUMBAR POSTERIOR [facility] 05/08/2018 [id number] 20 / [id number] / [id number] [employer] - [id number] Implanted:Qty: 1 on 05/24/2016 by Zelalem Cohen DO at [facility] DEVICE N/A: SPINE LUMBAR POSTERIOR [facility] 05/02/2018 [id number] 60 / / [id number] [employer] - [id number] Implanted:Qty: 1 on 05/24/2016 by Zelalem Cohen DO at [facility] DEVICE N/A: SPINE LUMBAR POSTERIOR [facility] 02/28/2018 [id number] 60 / / [id number] Procedures Procedure Name Priority Date/Time Associated Diagnosis Comments CREATININE/GFR, WB POC Routine 01/06/2016 12:04 PM BASTING CLEANER Back pain, 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 HGB A1C Routine 07/29/2014 3:19 AM CDT from Last 3 Months or Most Recently Relevant to Health Maintenance Results * CREATININE/GFR, WB POC (01/06/2016 12:04 PM BASTING CLEANER) Pathologist [facility] Creat Whole Blood 0.9 0.66 - 1.25 mg/dl [facility] GFR, Estimated >60 >60 ml/min/1.7 3m2 [facility] GFR, Est., If Black >60 >60 ml/min/1.7 3m2 [facility] 01/06/2016 12:0 4 PM BASTING CLEANER 01/06/2016 12:21 PM BASTING CLEANER Trae Blair MD LAB_1 [facility] [phone] * (ABNORMAL) HGB A1C (07/29/2014 3:19 AM CDT) Hgb A1c 6.4(H) 4.3 - 6.1 % [facility] Comment: The usual A1C goal for people with diabetes, age 18-75, is <8.0%. Physicians may recommend a higher or lower goal for specific individuals. 07/29/2014 3:19 AM CDT 07/29/2014 3:22 AM CDT Narrative [facility] - 07/29/2014 12:53 PM CDT Performed at [facility], [address] [place] [address] ??[id number] [place] Wei PA-C LAB_[address] [address] from Last 3 Months or Most Recently [...] 5:44 PM 07/28/2014 6:50 PM Care Teams Makeup Instructor Relationship Specialty Start Date End Date Franklin Squires MD [address] [place] [address] AvLES Wong [address] PCP - General Family Practice 03/08/16
--- OUTSIDE RECORDS SUMMARY | 2024-08-17 12:47 | XMS_ITS | Encounter Summary ---
Author Organization [facility] Address [address], [place] [address] Care Team Providers Care Branch Service Representative Name Role Phone Franklin Squires [...] filedocumented in this encounter Care Teams Branch Service Representative Relationship Specialty Start Date End Date Franklin Squires MD [address] [facility] [address] PCP - General Family Practice 03/08/16 documented as of this encounter
--- OUTSIDE RECORDS SUMMARY | 2024-08-17 12:47 | XMS_ITS ---
Author Organization [facility] Address [address] [address] Care Team Providers Care [employer] Name Role Phone Franklin Squires MD Primary [...] are documented for this patient in [facility]. Treatments may have been administered in another system. Resolved Problems Problem Noted Date Diagnosed Date Resolved Date Gait abnormality 01/17/2012 02/09/2015 Back pain 01/17/2012 02/09/2015 Paraplegia 04/04/2011 02/09/2015 Osteoporosis 03/06/2011 02/09/2015 Urinary tract infection 12/24/200603/11
--- OUTSIDE RECORDS SUMMARY | 2024-08-17 12:47 | XMS_ITS | Encounter Summary ---
Author Organization [facility] Address [address], [place] [address] Care Team Providers Care Back Tender Name [...] MD [address] [facility] [address] PCP - General Family Practice 03/08/16 documented as of this encounter
--- OUTSIDE RECORDS SUMMARY | 2024-08-17 12:47 | XMS_ITS | Clinical Summary ---
Author Organization [employer] [facility] [employer] [facility] Address [place], [place] [address] Care Team Providers Care College Director Name Role Phone Zelalem Cohen MD Unavailable [phone] May Randle) Unavailable Franklin Squires MD Primary Care Provider Fred Craft Unavailable [phone] Diane Charles MD Unavailable [phone] Julia Ware RN Unavailable [phone] Allergies Active Allergy Reactions Criticality Noted Date [...] bedIndications:Non-heal ing surgical wound, subsequent encounter Drive Eversight 8 inch low loss mattress and 1/2 rails. Semi-electric bed. Length of need 6 weeks. Bed seed pelleter:no 1 unit 018 Active acetaminophen (TYLENOL EXTRA STRGTH) 500 mg tabletIndications:fever ,pain Take 1,000 mg by mouth three times daily. Max acetaminophen dose: 4000mg in 24 hrs. Active sodium chloride (AYR SALINE NASL) Inhale 2-3 Sprays in the nostril(s) once daily if needed. 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 [employer]ura [place] Click Ostomy Barrier with belt tabs 60mm, Cut-to-Fit 01/16 - 2 11/18. Item #[id number]. 1 Each 11 021 Active ascorbic acid, [...] all other days or as directed Active oxyCODONE 10 mg tabletIndications:Chron ic pain syndrome Take 1 Tablet (10 mg) by mouth every 6 hours. 120 Tablet 2023 Discontinued warfarin (COUMADIN) 7.5 mg tabletIndications:Iliof [...] day in the evening OR as directed 2023 Discontinued(R eorder (E-cancel not sent)) Active [...] 09/27/2008 Assessment & Plan (01/19/2012 9:22 AM RODDING MACHINE TENDER): Orthopedics: Dr. Bright PM&R: Dr. May Randle Pain Management: Dr. 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) use of anticoagulants 02/19/2007 09/27/2008 Depressive disorder, not elsewhere classified 02/14/20 07 01/15/2018 Abnormality of gait 12/24/2006 09/27/20 08 Urinary tract infection, site not specified 12/24/2006 01/15/2018 BENIGN ESSENTIAL HYPERTENSION 12/24/2006 04/17/2016 Overview (12/24/2006): borderline Necrotizing fasciitis 2018 Type 2 diabetes mellitus Encounters Date Type Department Care Team Description 08/14/2024 Nurse Triage [address] [place] [address] Franklin Squires MD Catheter Problem 08/14/2024 Anticoagulation (warfarin) [address] [place] [address] 1, [facility] Anticoagulation (Acelis) 08/13/2024 11:23 AM CDT - 08/13/2024 11:59 PM CDT Hospital Encounter [facility] 200 [facility] [place] [address] Wound infection 08/13/2024 Travel 08/13/2024 Hospital/[facility] Telepho ne Encounter [facility] [address] [facility] [place] [address] Yen Hernandez RN Pre Procedure (PVP) 08/07/2024 Anticoagulation (warfarin) [facility] 100 [facility] [address] 1, [facility] Anticoagulation (Acelis) 08/06/2024 11:27 AM CDT - 08/06/2024 11:59 PM CDT Hospital Encounter [facility] [address] [facility] [place] [address] Wound infection (Primary Dx) 08/06/2024 Travel 08/06/2024 [facility] Telepho ne Encounter [facility] [address] [facility] [place] [address] Yen Hernandez RN Pre Procedure (PVP) 08/04/2024 Telephone [facility] 100 [facility] [address] Franklin Sqiures MD Form 07/31/2024 Anticoagulation (warfarin) [address] [facility] [place] [address] 1, [facility] Anticoagulation (Acelis) 07/30/2024 11:25 AM CDT - 07/30/2024 11:59 PM CDT Hospital Encounter [facility] [address] [facility] [place] [address] Wound infection (Primary Dx) 07/30/2024 Hospital/[facility] Telepho ne Encounter [facility] [place] [address] Yen Hernanedz RN Pre Procedure (PVP) 07/29/2024 1:30 PM CDT Nurse/Clinic Staff Only [facility] [address] [place] [address] Nurse/Clinic Staff Only (Suprapubic Cath) 07/29/2024 Refill [facility] [address] [place] [address] Franklin Squires MD Refill Request (Oxycodone) 07/29/2024 Travel 07/27/2024 Anticoagulation (warfarin) [address] [address] , [facility] Anticoagulation (Acelis) 07/24/[address] [address] Franklin Squires MD Anticoagulation (new med) 07/23/2024 8:46 AM CDT - 07/23/2024 2:33 PM CDT Hospital Encounter [facility] [address] [place] [address] Yudith Mcgraw NP Wound infection (Primary Dx) Discharge Disposition: Home Health 07/23/2024 Orders Only [facility] [address] [place] [address] Yudith Mcgraw SUPERVISOR METAL FABRICATING 1 scan: INFUSION CEFEPIME 2 MG 07/23/2024 Travel 07/22/2024 Telephone [facility] [address] [place] [address] Yen Hernandez, RN Appointment 07/22/2024 Telephone [facility] [address] [place] [address] Jennyfer Penny RN 07/15/2024 Telephone [facility] [address] [place] [address] Franklin Squires MD Anticoagulation (Order renewal) 07/15/2024 Anticoagulation (warfarin) [address] [address] 1, [facility] (Acelis ) 07/14/20[address] [address] Franklin Squires MD Form (Case Communication- Major drug interactions-( Warfarin) - Home Health Certification and Plan of Care - 07/08/2024-09/05/2024) 07/14/[address] [facility] [place] [address] Franklin Squires MD Refill Request (Bupropion) 07/09/2024 Orders Only [facility] Scanner 1 scan: (1-Ord) [facility], [place] PELVIS W CON, 07/09/2024 07/08/2024 1:30 PM CDT Nurse/Clinic Staff Only [address] [facility] [place] [address] Nurse/Clinic Staff Only (Cath Change ) 07/08/2024 Travel 07/07/[address] [place] [address] Franklin Squirse MD Refill Request (Donepezil) 07/02/2024 1:30 PM CDT Office Visit [address] [facility] [place] [address] Franklin Squires MD Medication Management 07/02/2024 Travel 07/01/2024 Anticoagulation (warfarin) [address] [place] [address] 1, [facility] (Acelis) 06/17/2024 Anticoagulation (warfarin) [address] [place] [address] 1, [facility] (acelis) 06/11/[address] [facility] [place] [address] Franklin Squires MD Refill Request (Warfarin) 06/03/2024 Anticoagulation (warfarin) [address] [place] [address] 1, [facility] Anticoagulation (Acelis) 06/02/[address] [place] [address] Franklin Squires MD Refill Request (Oxycodone) 05/20/2024 Anticoagulation (warfarin) [address] [place] [address] 1, [facility] Anticoagulation (Acelis) from Last 3 Months Immunizations Name Administration Dates Next Due COVID-19 vaccine (Yhat-[employer] NTech 30mcg/0.3mL) 12YO+ BIVALENT PF, MDV 10/22/2022 COVID-19 vaccine ([employer]hat-[employer] NTech 30mcg/0.3mL) PF, MDV 01/25/2021,01/02/2021 Influenza A [...] 08/19/2024 2:00 PM CDT Nurse/Clinic Staff Only [facility] 100 [facility] [place] [address] Health Maintenance Due Date Last Done Comments [...] Associated Diagnosis Comments HOME MONITOR AC Routine 08/14/2024 12:00 AM CDT HOME MONITOR AC Routine 08/07/2024 12:00 AM [...] MONITOR AC Routine 05/20/2024 12:00 AM CDT from Last 3 Months Results * HOME MONITOR AC (08/14/2024 12:00 AM CDT) Only the most recent of9 resultswithin the time period is included. PATIENT REPORTED HOME INR 2.3 2.00 - 3.00 ALERE HOME MONITORING 08/14/2024 Franklin Squires MD OTHER [facility]ERE HOME MONITORING [address] [place] [address] * (ABNORMAL) CBC WITH AUTO DIFFERENTIAL (08/06/2024 11:45 AM CDT) Only the most recent of2 resultswithin the time period is included. WHITE BLOOD COUNT 8.0 4.5 - 11.0 thou/cu mm 08/06/2024 12:02 PM [facility] RED BLOOD COUNT 4.33 4.30 - 5.90 mil/cu mm 08/06/2024 12:02 PM [facility] HEMOGLOBIN 13.5 13.5 - 17.5 g/dL 08/06/2024 12:02 PM [facility] HEMATOCRIT 39.7 37.0 - 53.0 % 08/06/2024 12:02 PM [facility] MCV 92 80 - 100 fL 08/06/2024 12:02 PM [facility] MCH 31.2 26.0 - 34.0 pg 08/06/2024 12:02 PM [facility] MCHC 34.0 32.0 - 36.0 g/dL 08/06/2024 12:02 PM [facility] RDW 16.1(H) 11.5 - 15.5 % 08/06/2024 12:02 PM [facility] PLATELET COUNT 111(L) 140 - 440 thou/cu mm 08/06/2024 12:02 PM [facility] MPV 11.3(H) 6.5 - 11.0 fL 08/06/2024 12:02 PM [facility] % NEUT 58.9 % 08/06/2024 12:02 PM [facility] % LYMPH 30.5 % 08/06/2024 12:02 PM [facility] % MONO 8.9 % 08/06/2024 12:02 PM [facility] % EOS 1.5 % 08/06/2024 12:02 PM [facility] % BASO 0.2 % 08/06/2024 12:02 PM [facility] ABSOLUTE NEUTROPHILS 4.7 1.7 - 7.0 thou/cu mm 08/06/2024 12:02 PM [facility] ABSOLUTE LYMPHOCYTES 2.5 0.9 - 2.9 thou/cu mm 08/06/2024 12:02 PM [facility] ABSOLUTE MONOCYTES 0.7 <0.9 thou/cu mm 08/06/2024 12:02 PM [facility] ABSOLUTE EOSINOPHILS 0.1 <0.5 thou/cu mm 08/06/2024 12:02 PM [facility] ABSOLUTE BASOPHILS 0.0 <0.3 thou/cu mm 08/06/2024 12:02 PM [facility] Blood BLOOD SPECIMEN / Unknown Line/Port / Unknown 08/06/2024 11:45 AM T 08/06/2024 11:57 AM [facility] LABORATORY - 08/06/2024 12:02 PM T Fax results to [phone] Yudith Mcgraw NP HEMATOLOGY [facility] [address] [place] [address] * (ABNORMAL) BASIC METABOLIC PANEL (08/06/2024 11:45 AM CDT) Only the most recent of3 resultswithin the time period is included. SODIUM 134(L) 136 - 145 mmol/L 08/06/2024 12:17 PM [facility] POTASSIUM 4.1 3.5 - 5.1 mmol/L 08/06/2024 12:17 PM [facility] CHLORIDE 97(L) 98 - 107 mmol/L 08/06/2024 12:17 PM [facility] CO2,TOTAL 30(H) 22 - 29 mmol/L 08/06/2024 12:17 PM [facility] ANION GAP 7 5 - 18 08/06/2024 12:17 PM [facility] GLUCOSE 155(H) 70 - 99 mg/dL 08/06/2024 12:17 PM [facility] CALCIUM 9.1 8.8 - 10.2 mg/dL 08/06/2024 12:17 PM [facility] BUN 18 8 - 23 mg/dL 08/06/2024 12:17 PM [facility] CREATININE 0.64(L) 0.70 - 1.20 mg/dL 08/06/2024 12:17 PM [facility] BUN/CREAT RATIO 28(H) 10 - 20 12:17 PM [facility] eGFR >90 >90 mL/min/1.7 3m2 08/06/2024 12:17 PM [facility] Comment:As of 2022, [...] CDT 08/06/2024 11:57 AM CDT Yudith Mcgraw SUPERVISOR METAL FABRICATING CHEMISTRY Performing Organization Address [facility] Co de Phone Number [facility] [address] [place] [address] * EXTRA TUBE LAVENDER (07/23/2024 10:59 AM CDT) Blood BLOOD SPECIMEN / Unknown Extra Tube / Unknown 07/23/2024 10:59 AM CDT 07/23/2024 11:06 AM CDT Doctor Unknown LABORATORY Performing Organization Address [facility] Co de Phone Number [facility] [address] [place] [address] * EXTRA TUBE BLUE (07/23/2024 10:59 AM CDT) Blood BLOOD SPECIMEN / Unknown Extra Tube / Unknown 07/23/2024 10:59 AM CDT 07/23/2024 11:06 AM CDT Doctor Unknown LABORATORY Performing Organization Address [facility] Co de Phone Number [facility] [address] [place] [address] * XR CHEST 1 VIEW PORTABLE (07/23/2024 [...] - 199 mg/dL 07/02/2024 3:04 PM CDT [facility] Comment: Cholesterol, Total Reference Ranges Desirable <200 mg/dL Borderline 200-239 mg/dL High >=240 mg/dL TRIGLYCERIDES 58 <150 mg/dL 07/02/2024 3:04 PM T [facility] HDL CHOLESTEROL 56 >40 mg/dL 3:04 PM T [facility] NON-HDL CHOLESTEROL 66 <145 mg/dl 07/02/2024 3:04 PM T [facility] CHOL/HDL RATIO 2.18 <4.50 07/02/2024 3:04 PM T [facility] LDL CHOLESTEROL 54 <=130 mg/dL 07/02/2024 3:04 PM [facility] VLDL CHOLESTEROL 12 <=30 mg/dL 07/02/2024 3:04 PM [facility] PROVIDER ORDERED STATUS RANDOM 07/02/2024 3:04 PM [facility] Blood BLOOD SPECIMEN / Unknown Venipuncture / Unknown 07/02/2024 2:14 PM CDT 07/02/2024 2:14 PM CDT Franklin Squires MD CHEMISTRY [facility] [address] [place] [address] * (ABNORMAL) CBC W PLT NO DIFF (07/02/2024 2:14 PM CDT) WHITE BLOOD COUNT 8.5 4.5 - 11.0 thou/cu mm 07/02/2024 2:58 PM [facility] RED BLOOD COUNT 4.75 4.30 - 5.90 mil/cu mm 07/02/2024 2:58 PM [facility] HEMOGLOBIN 14.1 13.5 - 17.5 g/dL 07/02/2024 2:58 PM [facility] HEMATOCRIT 42.2 37.0 - 53.0 % 07/02/2024 2:58 PM [facility] MCV 89 80 - 100 fL 07/02/2024 2:58 PM [facility] MCH 29.7 26.0 - 34.0 pg 07/02/2024 2:58 PM [facility] MCHC 33.4 32.0 - 36.0 g/dL 07/02/2024 2:58 PM CDT [facility] RDW 18.3(H) 11.5 - 15.5 % 07/02/2024 2:58 PM CDT [facility] PLATELET COUNT 159 140 - 440 thou/cu mm 07/02/2024 2:58 PM CDT [facility] MPV 10.7 6.5 - 11.0 fL 07/02/2024 2:58 PM CDT [facility] Blood BLOOD SPECIMEN / Unknown Venipuncture / Unknown 07/02/2024 2:14 PM CDT 07/02/2024 2:14 PM CDT Franklin Squires MD HEMATOLOGY [facility] [address] [place] [address] * HEMOGLOBIN A1C MONITORING (POCT) (07/02/2024 2:14 PM CDT) HEMOGLOBIN A1C MONITORING (POCT) 5.9 <=6.4 % 07/02/2024 2:49 PM CDT [facility] Blood BLOOD SPECIMEN / Unknown Venipuncture / Unknown 07/02/2024 2:14 PM CDT 07/02/2024 2:14 PM CDT Narrative [facility] - 07/02/2024 2:49 PM [...] Anemias, Splenectomy ? Franklin Squires MD CHEMISTRY [facility] [address] [place], [place] [id number] from Last 3 Months Additional Health Concerns [...] 12 months since positive culture): resides in acute/meterman care, receiving hemodialysis, has chronic open wounds/skin damage, has long-term percutaneous indwelling medical devices Exclusions for nares collection (if <12 months since positive culture) include all of the previous exclusions plus patients on antibiotics 7 days prior to collection 03/13/2018 03/20/2024 Advance Directives Documents on File Type Date Recorded Patient Axle Turner Expl anation Treatment Guidelines 08/04/2024 Healthcare Directive [...] Code Status Discussion: Reviewed Preferences Care Teams College Director Relationship Specialty Start Date End Date Tavia, Franklin Trae, MD [address] [place] [address] PCP - General Family Practice 10/18/15 Zelalem Cohen MD Physical Therapist 03/13/12 May Randle), Physical Medicine and Rehabilitation 03/13/12 Luana, FAUSTINO Krueger [address] [place] [address] Hogshead Press Operator 05/03/17 Diane Charles MD [address] [place] [address] Surgery - Urology 01/17/23 Julia Ware, VALERIE [address] [place] [address] Registered Nurse 07/17/23
--- OUTSIDE RECORDS SUMMARY | 2024-08-17 12:48 | XMS_ITS | Encounter Summary ---
Author Organization [facility] Address [address], [place] [address] Care Team Providers Care Research Program Coordinator Name Role Phone Franklin Squires MD Primary Care Provider [phone] Encounter Details Date Type Department Care Team (Late st Contact Info) Description 12/16/2013 Correspondence [facility] Radiology [address] [place] [address] Radiology, Provider MRI SAFETY SHEET AND COMPATIBILITY [...] Radiology, Provider - 12/16/2013 12:00 AM CST RONMENTAL HEALTH AND SAFETY LEADER documented in this encounter Plan of Treatment Not on file documented as of this encounter Visit Diagnoses Not on filedocumented in this encounter Care Teams Research Program Coordinator Relationship Specialty Start Date End Date Franklin Squires MD 100 [facility] [place] [address] PCP - General Family Practice 03/08/16 documented as of this encounter
--- OUTSIDE RECORDS SUMMARY | 2024-08-17 12:48 | XMS_ITS | Encounter Summary ---
Author Organization [facility] [address] [address] Care Team Providers Care Logging Truck Driver Name Role Phone Franklin Squires MD Primary Care Provider [phone] Encounter Details Date Type Department Care Team (Late st Contact Info) Description 10/26/2013 Correspondence [facility] Physical Therapy [address] [place] [address] Trudi Raymundo, PT [address] [place] [address] LETTER OF MEDICAL NECESSITY Social History Tobacco [...] Raymundo, PT - 10/26/2013 12:00 AM CST DROPPER documented in this encounter Plan of Treatment Not on file documented as of this encounter Visit Diagnoses Not on filedocumented in this encounter Care Teams Logging Truck Driver Relationship Specialty Start Date End Date Franklin Squires MD [address] [facility] [place] [address] PCP - General Family Practice 03/08/16 documented as of this encounter
--- OUTSIDE RECORDS SUMMARY | 2024-08-17 12:48 | XMS_ITS | Encounter Summary ---
Author Organization [facility] Address [address], [place] [address] Care Team Providers Care Tractor Distributor Name Role Phone Franklin Squires MD Primary Care Provider [phone] Encounter Details Date Type Department Care Team (Latest Contact Info) Description 06/04/2014 [facility]ence [facility] 401 Interventional [facility] Management [address] [place] [address] Zelalem Cohen, DO [address] [place] [address] MEDICAID PT INFORMATION EMPI RECOVERY Social History [...] filedocumented in this encounter Care Teams Tractor Distributor Relationship Specialty Start Date End Date Franklin Squires MD [facility] [place] [address] PCP - General Family Practice 03/08/16 documented as of this encounter
--- OUTSIDE RECORDS SUMMARY | 2024-08-17 12:48 | XMS_ITS | Encounter Summary ---
Author Organization [facility] [address] [address] Care Team Providers Care Title Investigator Name Role Phone Franklin Squires MD Primary Care Provider Encounter Details Date Type Department Care Team (Late st Contact Info) Description 11/10/2014 Correspondence [facility] Physical Therapy [address] [place] [address] Trudi Raymundo, PT [address] [place] [address] LETTER OF MEDICAL NECESSITY Social History Tobacco [...] on filedocumented in this encounter Care Teams Title Investigator Relationship Specialty Start Date End Date Franklin Squires MD 100 [facility] [place] [address] PCP - General Family Practice 03/08/16 documented as of this encounter
--- OUTSIDE RECORDS SUMMARY | 2024-08-17 12:48 | XMS_ITS | Encounter Summary ---
Author Organization [email or web address] Address [address], [place] [address] Care Team Providers Care Corn Grinder Name Role Phone Franklin Squires MD Primary Care Provider [phone] Encounter Details Date Type Department Care Team (Late st Contact Info) Description 07/23/2013 [facility]ence [facility] 401 Interventional Pain Management 401 [place] [address] Zelalem Cohen DO [address] [place] [address] EXPRESS SCRIPT Social History Tobacco Use Types [...] Cohen MD - 07/23/2013 12:00 AM CDT MEASURING MACHINE OPERATOR documented in this encounter Plan of Treatment Not on file documented as of this encounter Visit Diagnoses Not on filedocumented in this encounter Care Teams Corn Grinder Relationship Specialty Start Date End Date Franklin Squires MD [address] [facility] [place] [address] PCP - General Family Practice 03/08/16 documented as of this encounter
--- OUTSIDE RECORDS SUMMARY | 2024-08-17 12:48 | XMS_ITS | Encounter Summary ---
Author Organization [facility] Address [address], [place] [address] Care Team Providers Care Heel Burnisher Name Role Phone Franklin Squires MD Primary Care Provider Encounter Details Date Type Department Care Team (Late st Contact Info) Description 08/20/2014 Outside Hospital External to [facility] H/P Social History Tobacco [...] filedocumented in this encounter Care Teams Heel Burnisher Relationship Specialty Start Date End Date Franklin Squires MD [address] [facility] [place] [address] PCP - General Family Practice 03/08/16 documented as of this encounter
--- OUTSIDE RECORDS SUMMARY | 2024-08-17 12:48 | XMS_ITS | Encounter Summary ---
Author Organization [facility] Address [address] [address] Care Team Providers Care Retail Maintenance Technician Name Role Phone Franklin Squires MD Primary Care Provider Encounter Details Date Type Department Care Team (Late st Contact Info) Description 12/14/2014 Correspondence [facility] 401 Physical Medicine 401 [facility] [place] [place] [address] May Randle MD [address] [place] [address] DETAILED PRODUCT DESCRIPTION Social History Tobacco Use [...] filedocumented in this encounter Care Teams Retail Maintenance Technician Relationship Specialty Start Date End Date Franklin Squires MD 100 [facility] [place] [address] PCP - General Family Practice 03/08/16 documented as of this encounter
--- OUTSIDE RECORDS SUMMARY | 2024-08-17 12:48 | XMS_ITS | Encounter Summary ---
Author Organization [facility] Address [address], [place] [address] Care Team Providers Care Data Center Project Manager Name Role Phone Franklin Squires [...] filedocumented in this encounter Care Teams Data Center Project Manager Relationship Specialty Start Date End Date Franklin Squires MD 100 [facility] [place] [address] PCP - General Family Practice 03/08/16 documented as of this encounter
--- OUTSIDE RECORDS SUMMARY | 2024-08-17 12:48 | XMS_ITS | Encounter Summary ---
Author Organization [facility] Address [address], [place] [address] Care Team Providers Care Delivery Sales Worker Name Role Phone Franklin Squires MD Primary Care Provider [phone] Encounter Details Date Type Department Care Team (Late st Contact Info) Description 06/11/2014 Correspondence [facility] 401 Physical Medicine 401 [place] [address] May Randle MD [address] [place] [address] [facility] Social History Tobacco Use Types Packs/Day [...] on filedocumented in this encounter Care Teams Delivery Sales Worker Relationship Specialty Start Date End Date Franklin Squires MD 100 [facility] [place] [address] PCP - General Family Practice 03/08/16 documented as of this encounter
--- OUTSIDE RECORDS SUMMARY | 2024-08-17 12:48 | XMS_ITS | Encounter Summary ---
Author Organization [facility] Address [address], [place] [address] Care Team Providers Care Farm Labor Contractor Name Role Phone Franklin Squires MD Primary Care Provider Encounter Details Date Type Department Care Team (Late st Contact Info) Description 04/20/[address] [address] Radiology, Provider MRI SAFETY SHEET AND COMPATIBILITY [...] filedocumented in this encounter Care Teams Farm Labor Contractor Relationship Specialty Start Date End Date Franklin Squires MD 100 [facility] [place] [address] PCP - General Family Practice 03/08/16 documented as of this encounter
--- OUTSIDE RECORDS SUMMARY | 2024-08-17 12:48 | XMS_ITS | Encounter Summary ---
Author Organization [facility] Address [address], [place] [address] Care Team Providers Care Reed Fixer Name Role Phone Franklin Squires MD Primary Care Provider [phone] Encounter Details Date Type Department Care Team (Late st Contact Info) Description 07/28/2014 Outside Hospital External to External, Provider No address [address] ER VISIT/TRANSFER Social History Tobacco Use [...] filedocumented in this encounter Care Teams Reed Fixer Relationship Specialty Start Date End Date Franklin Squires MD 100 [facility] [place] [address] PCP - General Family Practice 03/08/16 documented as of this encounter
--- OUTSIDE RECORDS SUMMARY | 2024-08-17 12:48 | XMS_ITS | Encounter Summary ---
Author Organization [facility] Address [address] [address] Care Team Providers Care Classification Analyst Name Role Phone Franklin Squires MD Primary Care Provider [phone] Encounter Details Date Type Department Care Team [...] on filedocumented in this encounter Care Teams Classification Analyst Relationship Specialty Start Date End Date Franklin Squires MD 100 [facility] [place] [address] PCP - General Family Practice 03/08/16 documented as of this encounter
--- OUTSIDE RECORDS SUMMARY | 2024-08-17 12:48 | XMS_ITS | Encounter Summary ---
Author Organization [facility] Address [address], [place] [address] Care Team Providers Care Toolroom Machinist Name Role Phone Franklin Squires MD Primary Care Provider [phone] Encounter Details Date Type Department Care Team (Late st Contact Info) Description 06/07/2015 Correspondence [facility] Radiology [address] [place] [address] Radiology, Provider MRI SAFETY SHEET AND COMPATIBILITY [...] on filedocumented in this encounter Care Teams Toolroom Machinist Relationship Specialty Start Date End Date Franklin Squires MD [address] [place], [place] [address] [address] PCP - General Family Practice 03/08/16 documented as of this encounter
--- OUTSIDE RECORDS SUMMARY | 2024-08-17 12:48 | XMS_ITS | Encounter Summary ---
Author Organization [facility] Address [address], [place] [address] Care Team Providers Care Commercial Loan Officer Name Role Phone Franklin Squires MD Primary Care Provider Encounter Details Date Type Department Care Team (Late st Contact Info) Description 12/16/2014 Correspondence External to External, [place] [address] MEDICARE PLAN OF CARE RECERT Social History [...] filedocumented in this encounter Care Teams Commercial Loan Officer Relationship Specialty Start Date End Date Franklin Squires MD [address] [place] [address] [facility] [place] [address] PCP - General Family Practice 03/08/16 documented as of this encounter
--- OUTSIDE RECORDS SUMMARY | 2024-08-17 12:48 | XMS_ITS | Encounter Summary ---
Author Organization [facility] Address [address], [place] [address] Care Team Providers Care Information Technology Coordinator Name Role Phone Franklin Squires MD Primary Care Provider Encounter Details Date Type Department Care Team (Late st Contact Info) Description 01/06/[address] [facility] Radiology [address] [place] [address] Radiology, Provider MRI SAFETY SHEET AND COMPATIBILITY [...] in this encounter Care Teams Information Technology Coordinator Relationship Specialty Start Date End Date Franklin Squires MD [address] [place], [place] [address] [address] PCP - General Family Practice 03/08/16 documented as of this encounter
--- OUTSIDE RECORDS SUMMARY | 2024-08-17 12:48 | XMS_ITS | Encounter Summary ---
Author Organization [facility] Address [address] [address] Care Team Providers Care Gauge Inspector Name Role Phone Franklin Squires MD Primary Care Provider [phone] Encounter Details Date Type Department Care Team (Late st Contact Info) Description 05/04/2014 Correspondence [facility] 401 Physical Medicine 401 [facility] [place] [address] May Randle MD [address] [place] [address] LETTER OF MEDICAL NECESSITY FOR A WHEELCHAIR [...] on filedocumented in this encounter Care Teams Gauge Inspector Relationship Specialty Start Date End Date Franklin Squires MD 100 [facility] [place] [address] PCP - General Family Practice 03/08/16 documented as of this encounter
--- OUTSIDE RECORDS SUMMARY | 2024-08-17 12:48 | XMS_ITS | Encounter Summary ---
Author Organization [facility] Address [address], [place] [address] Care Team Providers Care Commercial Solar Sales Consultant Name Role Phone Franklin Squires MD Primary Care Provider [phone] Encounter Details Date Type Department Care Team (Late st Contact Info) Description 03/11/2014 Correspondence [facility] 401 Interventional Pain Management 401 [facility] [place] [address] Zelalem Cohen, DO [address] [place] [address] [facility] Social History Tobacco Use Types Packs/Day [...] filedocumented in this encounter Care Teams Commercial Solar Sales Consultant Relationship Specialty Start Date End Date Franklin Squires MD 100 [facility] [place] [address] PCP - General Family Practice 03/08/16 documented as of this encounter
--- OUTSIDE RECORDS SUMMARY | 2024-08-17 12:48 | XMS_ITS | Encounter Summary ---
Author Organization [facility] Address [address], [place] [address] Care Team Providers Care Pest Control Service Representative Name Role Phone Franklin Squires [...] on filedocumented in this encounter Care Teams Pest Control Service Representative Relationship Specialty Start Date End Date Franklin Squires MD 100 [facility] [place] [address] PCP - General Family Practice 03/08/16 documented as of this encounter
--- OUTSIDE RECORDS SUMMARY | 2024-08-17 12:48 | XMS_ITS | Encounter Summary ---
Author Organization [facility] Address [address], [place] [address] Care Team Providers Care Field Laborer Name Role Phone Franklin Squires MD Primary Care Provider [phone] Encounter Details Date Type Department Care Team [...] filedocumented in this encounter Care Teams Field Laborer Relationship Specialty Start Date End Date Franklin Squires MD 100 [facility] [place] [address] PCP - General Family Practice 03/08/16 documented as of this encounter
--- OUTSIDE RECORDS SUMMARY | 2024-08-17 12:48 | XMS_ITS | Encounter Summary ---
Author Organization [facility] Address [address], [place] [address] Care Team Providers Care Fiction And Nonfiction Prose Writer Name Role Phone Franklin Squires MD Primary Care Provider [phone] Encounter Details Date Type Department Care Team (Late st Contact Info) Description 09/17/2013 Correspondence External to External, [place] [address] EMPOWERMENT RULES Social History Tobacco Use Types [...] External, Provider - 09/17/2013 12:00 AM CST GER PERFORMANCE IMPROVEMENT documented in this encounter Plan of Treatment Not on file documented as of this encounter Visit Diagnoses Not on filedocumented in this encounter Care Teams Fiction And Nonfiction Prose Writer Relationship Specialty Start Date End Date Franklin Squires MD 100 [facility] [place] [address] PCP - General Family Practice 03/08/16 documented as of this encounter
--- OUTSIDE RECORDS SUMMARY | 2024-08-17 12:48 | XMS_ITS | Encounter Summary ---
Author Organization [facility] Address [address] [address] Care Team Providers Care Language Therapist Name Role Phone Franklin Squires MD Primary Care Provider Encounter Details Date Type Department Care Team (Late st Contact Info) Description 11/13/2012 Correspondence [facility] Radiology [address] [place] [address] Radiology, Provider MRI SAFETY SHEET AND COMPATIBILITY [...] RADIOLOGY, PROVIDER - 11/13/2012 12:00 AM CST UCT SAFETY EXPERT documented in this encounter Plan of Treatment Not on file documented as of this encounter Visit Diagnoses Not on filedocumented in this encounter Care Teams Language Therapist Relationship Specialty Start Date End Date Franklin Squires MD 100 [facility] [place] [address] PCP - General Family Practice 03/08/16 documented as of this encounter
--- OUTSIDE RECORDS SUMMARY | 2024-08-17 12:48 | XMS_ITS | Encounter Summary ---
Author Organization [facility] Address [address], [place] [address] Care Team Providers Care Cardiopulmonary Technician And Eeg Tech Name Role Phone Franklin Squires MD Primary Care Provider [phone] Encounter Details Date Type Department Care Team (Late st Contact Info) Description 08/20/2014 Outside Hospital External to [facility] Social History Tobacco Use Types [...] on filedocumented in this encounter Care Teams Cardiopulmonary Technician And Eeg Tech Relationship Specialty Start Date End Date Franklin Squires MD [address] [place], [place] [address] [address] PCP - General Family Practice 03/08/16 documented as of this encounter
--- OUTSIDE RECORDS SUMMARY | 2024-08-17 12:48 | XMS_ITS | Encounter Summary ---
Author Organization [facility] Address [address] [address] Care Team Providers Care Cloth Weigher Name Role Phone Franklin Squires MD Primary Care Provider Encounter Details Date Type Department Care Team (Late st Contact Info) Description 09/07/2014 Correspondence [facility] Radiology [address] [place] [address] Radiology, Provider MRI SAFETY SHEET AND COMPATIBILITY [...] on filedocumented in this encounter Care Teams Cloth Weigher Relationship Specialty Start Date End Date Franklin Squires MD [address] [place], [place] [address] [address] PCP - General Family Practice 03/08/16 documented as of this encounter
--- OUTSIDE RECORDS SUMMARY | 2024-08-17 12:48 | XMS_ITS | Encounter Summary ---
Author Organization [facility] [address], [place] [address] Care Team Providers Care Real Estate Teacher Name Role Phone Franklin Squires MD Primary Care Provider Encounter Details Date Type Department Care Team (Late st Contact Info) Description 07/08/2015 Correspondence [facility] Physical Therapy [address] [place] [address] Trudi Raymundo, PT [address] [place] [address] ADDENDUM FOR LETTER OF MEDICAL NECESSITY Social [...] in this encounter Care Teams Real Estate Teacher Relationship Specialty Start Date End Date Franklin Squires MD 100 [facility] [place] [address] PCP - General Family Practice 03/08/16 documented as of this encounter
--- OUTSIDE RECORDS SUMMARY | 2024-08-17 12:48 | XMS_ITS | Encounter Summary ---
Author Organization [facility] [address], [place] [address] Care Team Providers Care Certified Real Estate Appraiser Name Role Phone Franklin Squires MD Primary Care Provider Encounter Details Date Type Department Care Team (Late st Contact Info) Description 02/05/2014 Correspondence [facility] Physical Therapy [address] [place] [address] Trudi Raymundo, PT [address] [place] [address] LETTER OF MEDICAL NECESSITY FOR A WHEELCHAIR [...] filedocumented in this encounter Care Teams Certified Real Estate Appraiser Relationship Specialty Start Date End Date Franklin Squires MD 100 [facility] [place] [address] PCP - General Family Practice 03/08/16 documented as of this encounter
--- OUTSIDE RECORDS SUMMARY | 2024-08-17 12:48 | XMS_ITS | Encounter Summary ---
Author Organization [facility] Address [address], [place] [address] Care Team Providers Care Gathering Machine Feeder Name Role Phone Franklin Squires MD Primary Care Provider [phone] Encounter Details Date Type Department Care Team (Late st Contact Info) Description 11/23/2015 Correspondence External to External, [place] [address] [facility] Social History Tobacco Use Types [...] on filedocumented in this encounter Care Teams Gathering Machine Feeder Relationship Specialty Start Date End Date Franklin Squires MD [address] [place] [address] [place] [address] PCP - General Family Practice 03/08/16 documented as of this encounter
--- OUTSIDE RECORDS SUMMARY | 2024-08-17 12:48 | XMS_ITS | Encounter Summary ---
Author Organization [facility] Address [address], [place] [address] Care Team Providers Care Bookmobile Driver Name Role Phone Franklin Squires MD Primary Care Provider Encounter Details Date Type Department Care Team (Late st Contact Info) Description 04/24/2012 Correspondence [facility] Radiology [address] [place] [address] Radiology, Provider MRI SAFETY SHEET AND COMPATIBILITY [...] on filedocumented in this encounter Care Teams Bookmobile Driver Relationship Specialty Start Date End Date Franklin Squires MD 100 [facility] [place] [address] PCP - General Family Practice 03/08/16 documented as of this encounter
== END 2024-08-17 12:45 | disposition home or self-care (01) ==
LOC: WOUND 12:44
PROVIDERS: PCP Family Medicine; Visit Provider Nurse Practitioner Family
DX: M86.68 Other chronic osteomyelitis, other site (principal); L89.324 Pressure ulcer of left buttock, stage 4; G82.50 Quadriplegia, unspecified; Z99.3 Dependence on wheelchair
CPT/HCPCS: G0463

== ENCOUNTER 2024-08-24 12:43 | Outpatient (CLI) | payer MEDICARE, OTHER, SELFPAY ==
--- OUTSIDE RECORDS SUMMARY | 2024-08-24 13:06 | XMS_ITS | Continuity of Care Document ---
Author Name [facility] Organization [facility] Care Team Providers Care Power Shear Operator Name Role Phone [facility] Unavailable Unavailable Problems Combined list of problems from 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 It does not include entries that were removed or entered in error. Problem Status Onset Date Problem Type Date of Resolution Comments Source Abnormal liver function Active Condition [facility] Anemia (SCT 677816847) Active Condition [facility] Anxiety ([facility] 13381346) Active Condition [facility] Autonomic dysreflexia Active Condition [facility] Chronic Pain Syndrome (SCT 688556928) Active Condition [facility] Colostomy present Active Condition [facility] Constipation ([facility] 15195404) Active Condition [facility] Continuous opioid dependence Active Condition [facility] COPD - Chronic Obstructive Pulmonary Disease ([facility] 71460176) Active Condition [facility] Dementia Active Condition [facility] Depression ([facility] 02795912) Active Condition [facility] Diabetes Mellitus Type 2 (SCT 24959420) Active Condition [facility] Ependymoma of spinal cord Active Condition [facility] Hearing Loss ([facility] 76960794) Active Condition [facility] History of Deep Vein Thrombosis (SCT 619198066) Active Condition [facility] History of pressure injury Active Condition [facility] HTN - Hypertension ([facility]CT 05626701) Active Condition [facility] Hyperlipidemia ([facility] 51073571) Active Condition [facility] Hyponatremia Active Condition [facility] Long-term current use of anticoagulant Active Condition [facility] Neurogenic Bladder ([facility] 892859860) Active Condition [facility] Neurogenic bowel Active Condition [facility] Osteoporosis ([facility] 95141982) Active Condition [facility] Paraplegia Active Condition [facility] Spasticity Active Condition [facility] Suprapubic urinary catheter in situ Active Condition [facility] Supraventricular tachycardia Active Condition [facility] Tinnitus ([facility] 26046085) Active Condition [facility] Vitamin D Deficiency ([facility] 4942293) Active Condition [facility] Diagnosis: ICD-10-CM Z73.6 Limitation of activities due to disability Active Diagnosis [facility] Diagnosis: ICD-10-CM G82.20 Paraplegia, unspecified [...] NEEDED ORAL ACTIVE Jagdish BARRETT N 2022 [facility] AMLODIPINE BESYLATE (AMLODIPINE BESYLATE), 5 MG, TABLET, ORAL, [employer] 1000 ea. BOTTLE Active [id number] 4 2023 90 Pharmac y Data Transac tion Service Facilit y AMLODIPINE BESYLATE (amlodipine besylate), 5 MG, TABLET, ORAL, [email or web address], 1000 ea. BOTTLE Active [id number] 4 2023 90 Pharmac y Data Transac tion Service Facilit y AMLODIPINE BESYLATE 2.5MG TAB TAKE TWO TABLETS BY MOUTH EVERY MORNING ORAL ACTIVE Jagdish BARRETT 2022 [facility] AMOX TR-POTASSIU M CLAVULANATE (AMOXICILLI N/POTASSIUM CLAV), 875-125 MG, TABLET, ORAL, [employer], 20 ea. BOTTLE Active [id number] 3 2022 14 Pharmac y Data Transac tion Service Facilit y AMOXICILLIN -CLAVULANAT E POTASS (amoxicilli n/potassium clavulanate ), 875-125 MG, TABLET, ORAL, [employer],, 20 ea. BOTTLE Active [id number] 2023 20 Pharmac y Data Transac tion Service Facilit y AMOXICILLIN -CLAVULANAT E POTASS (amoxicilli n/potassium clavulanate ), 875-125 MG, TABLET, ORAL, [employer] [facility],, 20 ea. BOTTLE Active [id number] 2023 56 Pharmac y Data Transac tion Service Facilit y ARIPIPRAZOL E (aripiprazo le), 2 MG, TABLET, ORAL, [employer], 500 ea. BOTTLE Active [id number] 2023 180 Pharmac y Data Transac tion Service Facilit y ARIPIPRAZOL E (aripiprazo le), 2 MG, TABLET, ORAL, [employer], 500 ea. BOTTLE Active [id number] 2023 180 Pharmac y Data Transac tion Service Facilit y ARIPIPRAZOL E TAB TAKE 2MG BY MOUTH TWICE A DAY ORAL ACTIVE Jey HANSON TAZEvelyn Clemente 2021 [facility] ATIVAN (LORAZEPAM) , 0.5 MG, TABLET, ORAL, [employer], 100 ea. BOTTLE Active [id number] 2023 120 Pharmac y Data Transac tion Service Facilit y ATORVASTATI N CA 80MG TAB TAKE ONE-HALF TABLET BY MOUTH EVERY DAY ORAL ACTIVE Jey HANSON Bryn 2021 [facility] ATORVASTATI N CALCIUM (atorvastat in calcium), 40 MG, TABLET, ORAL, [employer] PHARMA I, 1000 ea. BOTTLE Active [id number] 2023 90 Pharmac y Data Transac tion Service Facilit y ATORVASTATI N CALCIUM (atorvastat in calcium), 40 MG, TABLET, ORAL, [employer] PHARMA I, 1000 ea. BOTTLE Active [id number] 2023 90 Pharmac y Data Transac [...] ORAL, PAVEL PHARMACEU, 60 ea. BOTTLE Active [id number] 2023 180 Pharmac y Data Transac tion Service Facilit y BUPROPION HCL SR (bupropion HCl), 150 MG, TAB SR 12H, ORAL, [employer]ARM[employer], 60 ea. BOTTLE Active [id number] 2023 180 Pharmac y Data Transac [...] ORAL, [employer]ARM, 50 ea. BOTTLE Active [id number] 2023 70 Pharmac y Data Transac tion Service Facilit y DONEPEZIL HCL (DONEPEZIL HCL), 5 MG, TABLET, ORAL, [employer] 1000 ea. BOTTLE Active [id number] 2023 90 Pharmac y Data Transac tion Service Facilit y DONEPEZIL HCL (DONEPEZIL HCL), 5 MG, TABLET, ORAL, [employer] 1000 ea. BOTTLE Cancele d [id number] : 2023 0 Pharmac y Data Transac tion Service Facilit y DONEPEZIL HCL (DONEPEZIL HCL), 5 MG, TABLET, ORAL, [employer] 1000 ea. BOTTLE Active [id number] 2023 90 Pharmac y Data Transac tion Service Facilit y DONEPEZIL HCL 10MG TAB TAKE ONE-HALF TABLET BY MOUTH EVERY DAY ORAL ACTIVE Jey HANSON Bryn 2021 [facility] DULOXETINE HCL (duloxetine HCl), 60 MG, CAPSULE DR, ORAL, [employer] 1000 ea. BOTTLE Active [id number] 2023 180 Pharmac y Data Transac tion Service Facilit y DULOXETINE HCL (duloxetine HCl), 60 MG, CAPSULE DR, ORAL, [employer] 1000 ea. BOTTLE Active [id number] 2023 180 Pharmac y Data Transac tion Service Facilit y DULOXETINE HCL 30MG CAP,EC TAKE 2 CAPSULES BY MOUTH TWICE A DAY ORAL ACTIVE GRANDJey PRADHAN M 2021 [facility] FAMOTIDINE (famotidine ), 20 MG, TABLET, ORAL, [employer] 1000 ea. BOTTLE Active [id number] 2023 180 Pharmac y Data Transac tion Service Facilit y FAMOTIDINE 20MG TAB TAKE ONE TABLET BY MOUTH TWICE A DAY ORAL ACTIVE GRANDIA,C ONALAINAE M 2021 [facility] FUROSEMIDE (furosemide ), 40 MG, TABLET, ORAL, [employer], 1000 ea. BOTTLE Active [id number] 2023 180 Pharmac y Data Transac tion Service Facilit y FUROSEMIDE 40MG TAB TAKE ONE TABLET BY MOUTH TWICE A DAY ORAL ACTIVE MARGIE,C SB M 2021 [facility] GABAPENTIN (gabapentin ), 400 MG, CAPSULE, ORAL, [employer] 500 ea. BOTTLE Active [id number] 2023 270 Pharmac y Data Transac tion Service Facilit y GABAPENTIN (gabapentin ), 400 MG, CAPSULE, ORAL, [employer]ARM[employer], 500 ea. BOTTLE Active [id number] 2023 270 Pharmac y Data Transac tion Service Facilit y GABAPENTIN (gabapentin ), 400 MG, CAPSULE, ORAL, [employer], 500 ea. BOTTLE Cancele d [id number] : 2023 0 Pharmac y Data Transac tion Service Facilit y GABAPENTIN 400MG CAP TAKE 1 CAPSULE BY MOUTH THREE TIMES A DAY ORAL ACTIVE GRANDIAJeyE M 2021 [facility] LORAZEPAM (lorazepam) , 0.5 MG, TABLET, ORAL, [employer], 500 ea. BOTTLE Active [id number] 2023 120 Pharmac y Data Transac tion Service Facilit y LORAZEPAM (lorazepam) , 0.5 MG, TABLET, ORAL, [employer], 1000 ea. BOTTLE Active [id number] 2023 120 Pharmac y Data Transac tion Service Facilit y LORAZEPAM (lorazepam) , 0.5 MG, TABLET, ORAL, [employer], 1000 ea. BOTTLE Active [id number] 2023 120 Pharmac y Data Transac tion Service Facilit y LORAZEPAM (lorazepam) , 0.5 MG, TABLET, ORAL, [employer], 1000 ea. BOTTLE Active [id number] 2023 120 Pharmac y Data Transac tion Service Facilit y LORAZEPAM (lorazepam) , 0.5 MG, TABLET, ORAL, [employer], 500 ea. BOTTLE Active [id number] 2023 120 Pharmac y Data Transac tion Service Facilit y LORAZEPAM 0.5MG TAB TAKE ONE TABLET BY MOUTH THREE TIMES A DAY AND TAKE TWO TABLETS BY MOUTH AT BEDTIME ORAL ACTIVE Jagdish BARRETT 2022 [facility] MILK OF MAGNESIA TAKE 30ML BY MOUTH EVERY DAY NEEDED ORAL ACTIVE GRANDIA,C TAZE M 2021 [facility] MULTIVITAMI NS CAP/TAB TAKE ONE TABLET BY MOUTH EVERY DAY ORAL ACTIVE GRANDIA,C SB M 2021 [facility] NALOXONE HCL 4MG/SPRAY SOLN,SPRAY, NASAL SPRAY 1 DOSE IN ONE NOSTRIL DIRECTED PRN NASAL ACTIVE Jagdish BARRETT N 2022 [facility] OXYCODONE HCL (OXYCODONE HCL), 10 MG, TABLET, ORAL, [employer] 100 ea. BOTTLE Active [id number] 2023 120 Pharmac y Data Transac tion Service Facilit y OXYCODONE HCL (OXYCODONE HCL), 10 MG, TABLET, ORAL, [employer] 100 ea. BOTTLE Active [id number] 2023 120 Pharmac y Data Transac tion Service Facilit y OXYCODONE HCL (OXYCODONE HCL), 10 MG, TABLET, ORAL, [employer] 100 ea. BOTTLE Active [id number] 2023 120 Pharmac y Data Transac tion Service Facilit y OXYCODONE HCL (OXYCODONE HCL), 10 MG, TABLET, ORAL, [employer] 100 ea. BOTTLE Active [id number] 2023 120 Pharmac y Data Transac tion Service Facilit y OXYCODONE HCL (OXYCODONE HCL), 10 MG, TABLET, ORAL, [employer] 100 ea. BOTTLE Active [id number] 2023 120 Pharmac y Data Transac tion Service Facilit y OXYCODONE HCL (OXYCODONE HCL), 10 MG, TABLET, ORAL, [employer] 100 ea. BOTTLE Active [id number] 2023 120 Pharmac y Data Transac tion Service Facilit y OXYCODONE HCL (OXYCODONE HCL), 10 MG, TABLET, ORAL, [employer] 100 ea. BOTTLE Active [id number] 2022 120 Pharmac y Data Transac tion Service Facilit y OXYCODONE HCL 5MG TAB TAKE TWO TABLETS BY MOUTH FOUR TIMES A DAY ORAL ACTIVE Jagdish BARRETT 2022 [facility] POTASSIUM CHLORIDE (potassium chloride), 10 MEQ, TAB ER PRT, ORAL, [employer], 100 ea. BOTTLE Active [id number] 2023 180 Pharmac y Data Transac tion Service Facilit y POTASSIUM CHLORIDE (potassium chloride), 10 MEQ, TAB ER PRT, ORAL, [employer], 100 ea. BOTTLE Active [id number] 2023 180 Pharmac y Data Transac tion Service Facilit y POTASSIUM CHLORIDE (potassium chloride), 20 MEQ, TAB ER PRT, ORAL, [employer], 100 ea. BOTTLE Active [id number] 2023 90 Pharmac y Data Transac tion Service Facilit y POTASSIUM CHLORIDE 20MEQ TAB,SA (DISPERSIBL E) TAKE ONE TABLET BY MOUTH TWICE A DAY ORAL ACTIVE Jey HANSON 2021 [facility] SANTYL (collagenas e Clostridium histolyticu m), 250 UNIT/G, OINT. (G), TOPICAL, WHITLOCK&N/UNI LUIS, 30 g TUBE Cancele d [id number] : 2023 0 Pharmac y Data Transac tion Service Facilit y WARFARIN SODIUM (warfarin sodium), 5 MG, TABLET, ORAL, [employer] 1000 ea. BOTTLE Cancele d [id number] : 2022 0 Pharmac y Data Transac tion Service Facilit y WARFARIN SODIUM (WARFARIN SODIUM), 5 MG, TABLET, ORAL, [employer], 1000 ea. BOTTLE Active [id number] 2023 25 Pharmac y Data Transac tion Service Facilit y WARFARIN SODIUM (WARFARIN SODIUM), 5 MG, TABLET, ORAL, [employer], 1000 ea. BOTTLE Active [id number] 2023 12 Pharmac y Data Transac tion Service Facilit y WARFARIN SODIUM (WARFARIN SODIUM), 5 MG, TABLET, ORAL, [employer], 1000 ea. BOTTLE Active [id number] 2023 40 Pharmac y Data Transac tion Service Facilit y WARFARIN SODIUM (WARFARIN SODIUM), 5 MG, TABLET, ORAL, [employer], 1000 ea. BOTTLE Cancele d [id number] : 2022 0 Pharmac y Data Transac tion Service Facilit y WARFARIN SODIUM (warfarin sodium), 7.5 MG, TABLET, ORAL, [employer], 100 ea. BOTTLE Active [id number] 2023 51 Pharmac y Data Transac tion Service Facilit y WARFARIN SODIUM (warfarin sodium), 7.5 MG, TABLET, ORAL, [employer], 100 ea. BOTTLE Active [id number] 2023 78 Pharmac y Data Transac tion Service Facilit y WARFARIN TAB TAKE 5MG BY MOUTH SUN/THUR S AND TAKE 7.5MG BY MOUTH ALL OTHER DAYS ORAL ACTIVE Jagdish BARRETT 2022 [facility] Allergies, Adverse Reactions, Alerts Combined list of allergies from Department [facility] and [facility] facilities. It does not include entries that were removed or entered in error. Substance Category Reaction Severity Reaction type Status Date Reported Comments Source AMOXICILLIN Propensity to adverse reactions to drug (finding) Eruption active 2 [facility] METOLAZONE Propensity to adverse reactions to drug (finding) Itching active 2 [facility] MORPHINE Propensity to adverse reactions to drug (finding) Delirium active 2 [facility] PIPERACILLIN Propensity to adverse reactions to drug (finding) Eruption active 2 [facility] SULFA DRUGS Propensity to adverse reactions to drug (finding) Eruption active 2 [facility] TAZOBACTAM SODIUM Propensity to adverse reactions to drug (finding) Eruption active 2 [facility] Immunizations Combined list of available immunizations from the Department of [facility] and [facility] facilities. 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 Status Comments Source COVID-19 ([employer]), MRNA, LNP-S, BIVALENT, PF, 30 MCG/0.3 ML DOSE 2021 300 complet ed [facility] INFLUENZA, ADJUVANTED, QUADRIVALENT, PF 2021 205 complet ed [facility] INFLUENZA, UNSPECIFIED FORMULATION 2021 88 complet ed Vevay's recall [facility] TD (ADULT), 5 LF TETANUS TOXOID, PRESERVATIVE FREE, ADSORBED 2021 113 complet ed [facility] INFLUENZA, ADJUVANTED, QUADRIVALENT, PF 2020 205 complet ed [facility] INFLUENZA, UNSPECIFIED FORMULATION 2020 88 complet ed [facility] COVID-19 ([employer]), MRNA, LNP-S, PF, 30 MCG/0.3 ML DOSE 3 2020 208 complet ed [facility] COVID-19 (PFIZER), MRNA, LNP-S, PF, 30 MCG/0.3 ML DOSE 2 2020 208 complet ed [facility] COVID-19 ([employer]), MRNA, LNP-S, PF, 30 MCG/0.3 ML DOSE 1 2020 208 complet ed [facility] INFLUENZA, ADJUVANTED, QUADRIVALENT, PF 2019 205 complet ed [facility] INFLUENZA, ADJUVANTED, TRIVALENT, PF 2018 168 complet ed [facility] INFLUENZA, ADJUVANTED, TRIVALENT, PF 2017 168 complet ed [facility] INFLUENZA, HIGH-DOSE, TRIVALENT, PF 2016 135 complet ed [facility] INFLUENZA, ADJUVANTED, TRIVALENT, PF 2016 168 complet ed [facility] INFLUENZA, HIGH-DOSE, TRIVALENT, PF 2015 135 complet ed [facility] ZOSTER LIVE 2015 121 complet ed [facility] PNEUMOCOCCAL CONJUGATE PCV 13 2014 133 complet ed [facility] INFLUENZA, HIGH-DOSE, TRIVALENT, PF 2014 135 complet ed [facility] INFLUENZA, HIGH-DOSE, TRIVALENT, PF 2013 135 complet ed [facility] INFLUENZA, UNSPECIFIED FORMULATION 2013 88 complet ed [facility] INFLUENZA, SPLIT VIRUS, TRIVALENT, PRESERVATIVE 2012 141 complet ed [facility] ZOSTER LIVE 2012 121 complet ed [facility] INFLUENZA, SPLIT VIRUS, TRIVALENT, PRESERVATIVE 2011 141 complet ed [facility] INFLUENZA, SPLIT VIRUS, TRIVALENT, PF 2010 140 complet ed [facility] PNEUMOCOCCAL POLYSACCHARID E PPV23 2010 33 complet ed [facility] TDAP 2010 115 complet ed [facility] INFLUENZA, SPLIT VIRUS, TRIVALENT, PRESERVATIVE 2009 141 complet ed [facility] NOVEL INFLUENZA-H1N 1-09, ALL FORMULATIONS 2009 128 complet ed [facility] INFLUENZA, SPLIT VIRUS, TRIVALENT, PF 2008 140 complet ed [facility] PNEUMOCOCCAL POLYSACCHARID E PPV23 2008 33 complet ed [facility] INFLUENZA, SPLIT VIRUS, TRIVALENT, PRESERVATIVE 2008 141 complet ed [facility] INFLUENZA, SPLIT VIRUS, TRIVALENT, PRESERVATIVE 2007 141 complet ed [facility] INFLUENZA, SPLIT VIRUS, TRIVALENT, PRESERVATIVE 2005 141 complet ed [facility] INFLUENZA, SPLIT VIRUS, TRIVALENT, PRESERVATIVE 2004 141 complet ed [facility] PNEUMOCOCCAL POLYSACCHARID E PPV23 2004 33 complet ed [facility] INFLUENZA, SPLIT VIRUS, TRIVALENT, PRESERVATIVE 2003 141 complet ed [facility] Results Combined list of recent chemistry, [...] Feb 05, 2023 03:10 PM Reporting Lab: [facility] [address] Performing Lab: [facility] [address] [facility] CYSTATIN C WITH EGFR CYSTATIN C AND GLOMERULAR FILTRATION RATE BY CYSTATIN C-BASED FORMULA PANEL - SERUM OR PLASMA 53 60 02/13 L Specimen Type: PLASMA No comment entered. Ordering Provider: ANKUSH BOWMAN Report Released Date/Time: Feb 05, 2023 03:10 PM Reporting Lab: [facility] [address] Performing Lab: [facility] [address] [facility]IC METABOLI C PANEL+MG CREATININE [MASS/VOLU ME] IN SERUM OR PLASMA 0.7 mg/dL 0.7 - 1.2 02/13 Specimen Type: PLASMA No comment entered. Ordering Provider: ANKUSH BOWMAN Report Released Date/Time: Feb 05, 2023 03:10 PM Reporting Lab: [facility] [address] Performing Lab: [facility] [address] [place] [facility] MET[facility]OLI [facility] PANEL+MG UREA NITROGEN [MASS/VOLU ME] IN SERUM OR PLASMA 15 mg/dL 8 - 26 02/13 Specimen Type: PLASMA No comment entered. Ordering Provider: ANKUSH BOWMAN Report Released Date/Time: Feb 05, 2023 03:10 PM Reporting Lab: [facility] [address] Performing Lab: [facility] [address] [place] [facility]OLI C PANEL+MG GLUCOSE [MASS/VOLU ME] IN SERUM OR PLASMA 140 mg/dL 70 - 100 02/13 H Specimen Type: PLASMA No comment entered. Ordering Provider: ANKUSH BOWMAN Report Released Date/Time: Feb 05, 2023 03:10 PM Reporting Lab: [facility] [address] Performing Lab: [facility] [address] [place] [facility]OL[facility] C PANEL+MG SODIUM [MOLES/VOL UME] IN SERUM OR PLASMA 135 mmol/L 136 - 145 02/13 L Specimen Type: PLASMA No comment entered. Ordering Provider: ANKUSH BOWMAN Report Released Date/Time: Feb 05, 2023 03:10 PM Reporting Lab: [facility] [address] Performing Lab: [facility] [address] [place] [facility] PANEL+MG POTASSIUM [MOLES/VOL UME] IN SERUM OR PLASMA 4.0 mmol/L 3.5 - 5.1 02/13 Specimen Type: PLASMA No comment entered. Ordering Provider: ANKUSH BOWMAN Report Released Date/Time: Feb 05, 2023 03:10 PM Reporting Lab: [facility] [address] Performing Lab: [facility] [address] [place] [facility] C PANEL+MG CHLORIDE [MOLES/VOL UME] IN SERUM OR PLASMA 99 mmol/L 98 - 107 02/13 Specimen Type: PLASMA No comment entered. Ordering Provider: ANKUSH BOWMAN Report Released Date/Time: Feb 05, 2023 03:10 PM Reporting Lab: [facility] [address] Performing Lab: [facility] [address] [place] [facility] PANEL+MG CARBON DIOXIDE, TOTAL [MOLES/VOL UME] IN SERUM OR PLASMA 29 mmol/L 22 - 29 02/13 Specimen Type: PLASMA No comment entered. Ordering Provider: ANKUSH BOWMAN Report Released Date/Time: Feb 05, 2023 03:10 PM Reporting Lab: [facility] [address] Performing Lab: [facility] [address] [place] [facility] PANEL+MG CALCIUM [MASS/VOLU ME] IN SERUM OR PLASMA 9.2 mg/dL 8.4 - 10.2 02/13 Specimen Type: PLASMA No comment entered. Ordering Provider: ANKUSH BOWMAN Report Released Date/Time: Feb 05, 2023 03:10 PM Reporting Lab: [facility] [address] Performing Lab: [facility] [address] [place] [facility] PANEL+MG MAGNESIUM [MASS/VOLU ME] IN SERUM OR PLASMA 2.0 mg/dL 1.6 - 2.6 02/13 Specimen Type: PLASMA No comment entered. Ordering Provider: ANKUSH BOWMAN Report Released Date/Time: Feb 05, 2023 03:10 PM Reporting Lab: [facility] [address] Performing Lab: [facility] [address] [place] [facility] MET[facility]OLI C PANEL+MG ANION GAP IN SERUM OR PLASMA 7 mmol/L 5 - 15 02/13 Specimen Type: PLASMA No comment entered. Ordering Provider: ANKUSH BOWMAN Report Released Date/Time: Feb 05, 2023 03:10 PM Reporting Lab: [facility] [address] Performing Lab: [facility] [address] [place] [facility] PANEL+MG GLOMERULAR FILTRATION RATE/1.73 SQ M.PREDICTE D [VOLUME RATE/AREA] IN SERUM, PLASMA OR BLOOD BY CREATININE -BASED FORMULA (CKD-EPI) >90 60 02/13 Specimen Type: PLASMA No comment entered. Ordering Provider: ANKUSH BOWMAN Report Released Date/Time: Feb 05, 2023 03:10 PM Reporting Lab: [facility] [address] Performing Lab: [facility] [address] [place] [facility] URINALYS IS COLOR OF URINE YELLOW 10/08 Specimen Type: URINE No comment entered. Ordering Provider: ANKUSH BOWMAN Report Released Date/Time: Sep 24, 2022 01:55 PM Reporting Lab: [facility] [address] Performing Lab: [facility] [address] [place] [facility] URIN[facility] IS SPECIFIC GRAVITY OF URINE 1.023 1.003 - 1.035 10/08 Specimen Type: URINE No comment entered. Ordering Provider: ANKUSH BOWMAN Report Released Date/Time: Sep 24, 2022 01:55 PM Reporting Lab: [facility] [address] Performing Lab: [facility] [address] [place] [facility] URINAL[facility] IS BILIRUBIN. TOTAL [PRESENCE] IN URINE BY TEST STRIP NEGATIVE 10/08 Specimen Type: URINE No comment entered. Ordering Provider: ANKUSH BOWMAN Report Released Date/Time: Sep 24, 2022 01:55 PM Reporting Lab: [facility] [address] Performing Lab: [facility] [address] [place] [facility] URINALYS IS KETONES [MASS/VOLU ME] IN URINE BY TEST STRIP NEGATIVE 10/08 Specimen Type: URINE No comment entered. Ordering Provider: ANKUSH BOWMAN Report Released Date/Time: Sep 24, 2022 01:55 PM Reporting Lab: [facility] [address] Performing Lab: [facility] [address] [place] [facility] URINALYS IS GLUCOSE [MASS/VOLU ME] IN URINE BY TEST STRIP NEGATIVE mg/dL <30 - 30 10/08 Specimen Type: URINE No comment entered. Ordering Provider: ANKUSH BOWMAN Report Released Date/Time: Sep 24, 2022 01:55 PM Reporting Lab: [facility] [address] Performing Lab: [facility] [address] [place] [facility] URINALYS IS PROTEIN [MASS/VOLU ME] IN URINE BY TEST STRIP 30 mg/dL <20 - 20 10/08 Specimen Type: URINE No comment entered. Ordering Provider: ANKUSH BOWMAN Report Released Date/Time: Sep 24, 2022 01:55 PM Reporting Lab: [facility] [address] Performing Lab: [facility] [address] [place] [facility] URINALYS IS PH OF URINE BY TEST STRIP 7.5 5.0 - 8.0 10/08 Specimen Type: URINE No comment entered. Ordering Provider: ANKUSH BOWMAN Report Released Date/Time: Sep 24, 2022 01:55 PM Reporting Lab: [facility] [id number] Performing Lab: [facility] [id number] [place] [facility] URINALYS IS LEUKOCYTES [#/AREA] IN URINE SEDIMENT BY MICROSCOPY HIGH POWER FIELD >180/[HP F] 0 - 7 10/08 H Specimen Type: URINE No comment entered. Ordering Provider: ANKUSH BOWMAN Report Released Date/Time: Sep 24, 2022 01:55 PM Reporting Lab: [facility] [id number] Performing Lab: [facility] [id number] [place] URINALYS IS BACTERIA [PRESENCE] IN URINE SEDIMENT BY LIGHT MICROSCOPY MANY 10/08 Specimen Type: URINE No comment entered. Ordering Provider: ANKUSH BOWMAN Report Released Date/Time: Sep 24, 2022 01:55 PM Reporting Lab: [facility] [address] Performing Lab: [facility] [address] [place] URINALYS IS ERYTHROCYT ES [#/AREA] IN URINE SEDIMENT BY MICROSCOPY HIGH POWER FIELD 33 /[HPF] 0 - 3 10/08 H Specimen Type: URINE No comment entered. Ordering Provider: ANKUSH BOWMAN Report Released Date/Time: Sep 24, 2022 01:55 PM Reporting Lab: [facility] [address] Performing Lab: [facility] [address] [facility] URINALYS IS APPEARANCE OF URINE EX.TURBI D 10/08 Specimen Type: URINE No comment entered. Ordering Provider: ANKUSH BOWMAN Report Released Date/Time: Sep 24, 2022 01:55 PM Reporting Lab: [facility] [address] Performing Lab: [facility] [address] [facility] URINALYS IS EPITHELIAL CELLS.SQUA MOUS [#/AREA] IN URINE SEDIMENT BY MICROSCOPY HIGH POWER FIELD 1 /[HPF] 10/08 Specimen Type: URINE No comment entered. Ordering Provider: ANKUSH BOWMAN Report Released Date/Time: Sep 24, 2022 01:55 PM Reporting Lab: [facility] [address] Performing Lab: [facility] [address] [facility] URINALYS IS HEMOGLOBIN [PRESENCE] IN URINE BY TEST STRIP 1+ 10/08 Specimen Type: URINE No comment entered. Ordering Provider: ANKUSH BOWMAN Report Released Date/Time: Sep 24, 2022 01:55 PM Reporting Lab: [facility] [address] Performing Lab: [facility] [address] [facility] URINALYS IS NITRITE [PRESENCE] IN URINE BY TEST STRIP NEGATIVE 10/08 Specimen Type: URINE No comment entered. Ordering Provider: ANKUSH BOWMAN Report Released Date/Time: Sep 24, 2022 01:55 PM Reporting Lab: [facility] [address] Performing Lab: [facility] [address] [facility] URINALYS IS LEUKOCYTE CLUMPS [#/VOLUME] IN URINE BY AUTOMATED COUNT PRESENT 10/08 Specimen Type: URINE No comment entered. Ordering Provider: ANKUSH BOWMAN Report Released Date/Time: Sep 24, 2022 01:55 PM Reporting Lab: [facility] [address] Performing Lab: [facility] [address] [facility] URINALYS IS LEUKOCYTE ESTERASE [PRESENCE] IN URINE BY TEST STRIP 500 10/08 Specimen Type: URINE No comment entered. Ordering Provider: ANKUSH BOWMAN Report Released Date/Time: Sep 24, 2022 01:55 PM Reporting Lab: [facility] [address] Performing Lab: [facility] [address] [place] ALBUMIN ALBUMIN [MASS/VOLU ME] IN SERUM OR PLASMA 4.2 g/dL 3.5 - 5.2 10/08 Specimen Type: PLASMA No comment entered. Ordering Provider: ANKUSH BOWMAN Report Released Date/Time: Sep 24, 2022 01:55 PM Reporting Lab: [facility] [address] Performing Lab: [facility] [address] [place] [facility] PRE-ALBU MIN PREALBUMIN [MASS/VOLU ME] IN SERUM OR PLASMA 28.4 mg/dL 14.0 - 45.0 10/08 Specimen Type: SERUM No comment entered. Ordering Provider: ANKUSH BOWMAN Report Released Date/Time: Sep 24, 2022 01:55 PM Reporting Lab: [facility] [address] Performing Lab: [facility] [address] [place] [facility] COMPREHE NSIVE METABOLI C PANEL+MG CREATININE [MASS/VOLU ME] IN SERUM OR PLASMA 0.7 mg/dL 0.7 - 1.2 10/08 Specimen Type: PLASMA No comment entered. Ordering Provider: ANKUSH BOWMAN Report Released Date/Time: Sep 24, 2022 01:55 PM Reporting Lab: [facility] [address] Performing Lab: [facility] [address] [place] COMPREHE NSIVE METABOLI C PANEL+MG UREA NITROGEN [MASS/VOLU ME] IN SERUM OR PLASMA 16 mg/dL 8 - 26 10/08 Specimen Type: PLASMA No comment entered. Ordering Provider: ANKUSH BOWMAN Report Released Date/Time: Sep 24, 2022 01:55 PM Reporting Lab: [facility] [address] Performing Lab: [facility] [address] [place] [facility] COMPREHE NSIVE METABOLI C PANEL+MG GLUCOSE [MASS/VOLU ME] IN SERUM OR PLASMA 94 mg/dL 70 - 100 10/08 Specimen Type: PLASMA No comment entered. Ordering Provider: ANKUSH BOWMAN Report Released Date/Time: Sep 24, 2022 01:55 PM Reporting Lab: [facility] [address] Performing Lab: [facility] [address] [place] COMPREHE NSIVE METABOLI C PANEL+MG SODIUM [MOLES/VOL UME] IN SERUM OR PLASMA 138 mmol/L 136 - 145 10/08 Specimen Type: PLASMA No comment entered. Ordering Provider: ANKUSH BOWMAN Report Released Date/Time: Sep 24, 2022 01:55 PM Reporting Lab: [facility] [address] Performing Lab: [facility] [address] [place] [facility] COMPREHE NSIVE METABOLI C PANEL+MG POTASSIUM [MOLES/VOL UME] IN SERUM OR PLASMA 3.9 mmol/L 3.5 - 5.1 10/08 Specimen Type: PLASMA No comment entered. Ordering Provider: ANKUSH BOWMAN Report Released Date/Time: Sep 24, 2022 01:55 PM Reporting Lab: [facility] [address] Performing Lab: [facility] [address] [place] COMPREHE NSIVE METABOLI C PANEL+MG CHLORIDE [MOLES/VOL UME] IN SERUM OR PLASMA 101 mmol/L 98 - 107 10/08 Specimen Type: PLASMA No comment entered. Ordering Provider: ANKUSH BOWMAN Report Released Date/Time: Sep 24, 2022 01:55 PM Reporting Lab: [facility] [address] Performing Lab: [facility] [address] [place] [facility] COMPREHE NSIVE METABOLI C PANEL+MG CARBON DIOXIDE, TOTAL [MOLES/VOL UME] IN SERUM OR PLASMA 28 mmol/L 22 - 29 10/08 Specimen Type: PLASMA No comment entered. Ordering Provider: ANKUSH BOWMAN Report Released Date/Time: Sep 24, 2022 01:55 PM Reporting Lab: [facility] [address] Performing Lab: [facility] [address] [place] [facility] COMPREHE NSIVE METABOLI C PANEL+MG CALCIUM [MASS/VOLU ME] IN SERUM OR PLASMA 9.7 mg/dL 8.4 - 10.2 10/08 Specimen Type: PLASMA No comment entered. Ordering Provider: ANKUSH BOWMAN Report Released Date/Time: Sep 24, 2022 01:55 PM Reporting Lab: [facility] [address] Performing Lab: [facility] [address] [place] [facility] COMPREHE NSIVE METABOLI C PANEL+MG PROTEIN [MASS/VOLU ME] IN SERUM OR PLASMA 7.6 g/dL 6.0 - 8.3 10/08 Specimen Type: PLASMA No comment entered. Ordering Provider: ANKUSH BOWMAN Report Released Date/Time: Sep 24, 2022 01:55 PM Reporting Lab: [facility] [address] Performing Lab: [facility] [address] [place] [facility] COMPREHE NSIVE METABOLI C PANEL+MG ALBUMIN [MASS/VOLU ME] IN SERUM OR PLASMA 4.2 g/dL 3.5 - 5.2 10/08 Specimen Type: PLASMA No comment entered. Ordering Provider: ANKUSH BOWMAN Report Released Date/Time: Sep 24, 2022 01:55 PM Reporting Lab: [facility] [address] Performing Lab: [facility] [address] [place] [facility] COMPREHE NSIVE METABOLI C PANEL+MG BILIRUBIN. TOTAL [MASS/VOLU ME] IN SERUM OR PLASMA 0.6 mg/dL 0.2 - 1.2 10/08 Specimen Type: PLASMA No comment entered. Ordering Provider: ANKUSH BOWMAN Report Released Date/Time: Sep 24, 2022 01:55 PM Reporting Lab: [facility] [address] Performing Lab: [facility] [address] [place] [facility] COMPREHE NSIVE METABOLI C PANEL+MG MAGNESIUM [MASS/VOLU ME] IN SERUM OR PLASMA 2.1 mg/dL 1.6 - 2.6 10/08 Specimen Type: PLASMA No comment entered. Ordering Provider: ANKUSH BOWMAN Report Released Date/Time: Sep 24, 2022 01:55 PM Reporting Lab: [facility] [address] Performing Lab: [facility] [address] [place] [facility] COMPREHE NSIVE METABOLI C PANEL+MG ANION GAP IN SERUM OR PLASMA 9 mmol/L 5 - 15 10/08 Specimen Type: PLASMA No comment entered. Ordering Provider: ANKUSH BOWMAN Report Released Date/Time: Sep 24, 2022 01:55 PM Reporting Lab: [facility] [address] Performing Lab: [facility] [address] [place] [facility] COMPREHE NSIVE METABOLI C PANEL+MG ALKALINE PHOSPHATAS E [ENZYMATIC ACTIVITY/V OLUME] IN SERUM OR PLASMA 96 U/L 40 - 150 10/08 Specimen Type: PLASMA No comment entered. Ordering Provider: ANKUSH BOWMAN Report Released Date/Time: Sep 24, 2022 01:55 PM Reporting Lab: [facility] [address] Performing Lab: [facility] [address] [place] [facility] COMPREHE NSIVE METABOLI C PANEL+MG ALANINE AMINOTRANS FERASE [ENZYMATIC ACTIVITY/V OLUME] IN SERUM OR PLASMA 29 U/L <55 - 55 10/08 Specimen Type: PLASMA No comment entered. Ordering Provider: ANKUSH BOWMAN Report Released Date/Time: Sep 24, 2022 01:55 PM Reporting Lab: [facility] [address] Performing Lab: [facility] [address] [place] [facility] COMPREHE NSIVE METABOLI C PANEL+MG ASPARTATE AMINOTRANS FERASE [ENZYMATIC ACTIVITY/V OLUME] IN SERUM OR PLASMA 22 U/L <34 - 34 10/08 Specimen Type: PLASMA No comment entered. Ordering Provider: ANKUSH BOWMAN Report Released Date/Time: Sep 24, 2022 01:55 PM Reporting Lab: [facility] [address] Performing Lab: [facility] [address] [facility] COMPREHE NSIVE METABOLI C PANEL+MG GLOMERULAR FILTRATION RATE/1.73 SQ M.PREDICTE D [VOLUME RATE/AREA] IN SERUM, PLASMA OR BLOOD BY CREATININE -BASED FORMULA (CKD-EPI) >90 60 10/08 Specimen Type: PLASMA No comment entered. Ordering Provider: ANKUSH BOWMAN Report Released Date/Time: Sep 24, 2022 01:55 PM Reporting Lab: [facility] [address] Performing Lab: [facility] [address] [facility] CBC & DIFF LEUKOCYTES [#/VOLUME] IN BLOOD BY AUTOMATED COUNT 7.32 10*3/uL 4.0 - 11.0 10/08 Specimen Type: BLOOD Comment: Automated Differentia l Performed Ordering Provider: ANKUSH BOWMAN Report Released Date/Time: Sep 24, 2022 01:55 PM Reporting Lab: [facility] [address] Performing Lab: [facility] [address] [facility] CBC & DIFF ERYTHROCYT ES [#/VOLUME] IN BLOOD BY AUTOMATED COUNT 4.80 10*6/uL 4.6 - 6.2 10/08 Specimen Type: BLOOD Comment: Automated Differentia l Performed Ordering Provider: ANKUSH BOWMAN Report Released Date/Time: Sep 24, 2022 01:55 PM Reporting Lab: [facility] [address] Performing Lab: [facility] [address] [facility] CBC & DIFF HEMOGLOBIN [MASS/VOLU ME] IN BLOOD 14.7 g/dL 13.5 - 17.9 10/08 Specimen Type: BLOOD Comment: Automated Differentia l Performed Ordering Provider: ANKUSH BOWMAN Report Released Date/Time: Sep 24, 2022 01:55 PM Reporting Lab: [facility] [address] Performing Lab: [facility] [address] [place] [facility] CBC & DIFF HEMATOCRIT [VOLUME FRACTION] OF BLOOD BY AUTOMATED COUNT 44.2 41 - 54 10/08 Specimen Type: BLOOD Comment: Automated Differentia l Performed Ordering Provider: ANKUSH BOWMAN Report Released Date/Time: Sep 24, 2022 01:55 PM Reporting Lab: [facility] [address] Performing Lab: [facility] [address] [place] [facility] CBC & DIFF MCV [ENTITIC VOLUME] BY AUTOMATED COUNT 92.1 fL 80 - 100 10/08 Specimen Type: BLOOD Comment: Automated Differentia l Performed Ordering Provider: ANKUSH BOWMAN Report Released Date/Time: Sep 24, 2022 01:55 PM Reporting Lab: [facility] [address] Performing Lab: [facility] [address] [place] [facility] CBC & DIFF MCH [ENTITIC MASS] BY AUTOMATED COUNT 30.6 pg 27 - 33 10/08 Specimen Type: BLOOD Comment: Automated Differentia l Performed Ordering Provider: ANKUSH BOWMAN Report Released Date/Time: Sep 24, 2022 01:55 PM Reporting Lab: [facility] [address] Performing Lab: [facility] [address] [place] [facility] CBC & DIFF MCHC [MASS/VOLU ME] BY AUTOMATED COUNT 33.3 g/dL 32.0 - 37.5 10/08 Specimen Type: BLOOD Comment: Automated Differentia l Performed Ordering Provider: ANKUSH BOWMAN Report Released Date/Time: Sep 24, 2022 01:55 PM Reporting Lab: [facility] [address] Performing Lab: [facility] [address] [place] [facility] CBC & DIFF PLATELETS [#/VOLUME] IN BLOOD BY AUTOMATED COUNT 144 10*3/uL 150 - 400 10/08 L Specimen Type: BLOOD Comment: Automated Differentia l Performed Ordering Provider: ANKUSH BOWMAN Report Released Date/Time: Sep 24, 2022 01:55 PM Reporting Lab: [facility] [address] Performing Lab: [facility] [address] [place] [facility] CBC & DIFF PLATELET MEAN VOLUME [ENTITIC VOLUME] IN BLOOD BY AUTOMATED COUNT 10.8 fL 7.4 - 10.4 10/08 H Specimen Type: BLOOD Comment: Automated Differentia l Performed Ordering Provider: ANKUSH BOWMAN Report Released Date/Time: Sep 24, 2022 01:55 PM Reporting Lab: [facility] [address] Performing Lab: [facility] [address] [place] [facility] CBC & DIFF NEUTROPHIL S/100 LEUKOCYTES IN BLOOD BY MANUAL COUNT 55.5 10/08 Specimen Type: BLOOD Comment: Automated Differentia l Performed Ordering Provider: ANKUSH BOWMAN Report Released Date/Time: Sep 24, 2022 01:55 PM Reporting Lab: [facility] [address] Performing Lab: [facility] [address] [place] [facility] CBC & DIFF LYMPHOCYTE S/100 LEUKOCYTES IN BLOOD BY MANUAL COUNT 31.4 10/08 Specimen Type: BLOOD Comment: Automated Differentia l Performed Ordering Provider: ANKSUH BOWMAN Report Released Date/Time: Sep 24, 2022 01:55 PM Reporting Lab: [facility] [address] Performing Lab: [facility] [address] [place] [facility] CBC & DIFF MONOCYTES/ 100 LEUKOCYTES IN BLOOD BY AUTOMATED COUNT 10.2 10/08 Specimen Type: BLOOD Comment: Automated Differentia l Performed Ordering Provider: ANKUSH BOWMAN Report Released Date/Time: Sep 24, 2022 01:55 PM Reporting Lab: [facility] [address] Performing Lab: [facility] [address] [place] [facility] CBC & DIFF EOSINOPHIL S/100 LEUKOCYTES IN BLOOD BY AUTOMATED COUNT 2.2 10/08 Specimen Type: BLOOD Comment: Automated Differentia l Performed Ordering Provider: ANKUSH BOWMAN Report Released Date/Time: Sep 24, 2022 01:55 PM Reporting Lab: [facility] [address] Performing Lab: [facility] [address] [place] [facility] CBC & DIFF BASOPHILS/ 100 LEUKOCYTES IN BLOOD BY MANUAL COUNT 0.4 10/08 Specimen Type: BLOOD Comment: Automated Differentia l Performed Ordering Provider: ANKUSH BOWMAN Report Released Date/Time: Sep 24, 2022 01:55 PM Reporting Lab: [facility] [address] Performing Lab: [facility] [address] [place] [facility] CBC & DIFF ERYTHROCYT E DISTRIBUTI ON WIDTH [RATIO] BY AUTOMATED COUNT 15.9 11.5 - 14.5 10/08 H Specimen Type: BLOOD Comment: Automated Differentia l Performed Ordering Provider: ANKUSH BOWMAN Report Released Date/Time: Sep 24, 2022 01:55 PM Reporting Lab: [facility] [address] Performing Lab: [facility] [address] [place] [facility] CBC & DIFF LYMPHOCYTE S [#/VOLUME] IN BLOOD BY AUTOMATED COUNT 2.30 10*3/uL 1.0 - 4.0 10/08 Specimen Type: BLOOD Comment: Automated Differentia l Performed Ordering Provider: ANKUSH BOWMAN Report Released Date/Time: Sep 24, 2022 01:55 PM Reporting Lab: [facility] [address] Performing Lab: [facility] [address] [place] [facility] CBC & DIFF MONOCYTES [#/VOLUME] IN BLOOD BY AUTOMATED COUNT 0.75 10*3/uL 0.1 - 1.0 10/08 Specimen Type: BLOOD Comment: Automated Differentia l Performed Ordering Provider: ANKUSH BOWMAN Report Released Date/Time: Sep 24, 2022 01:55 PM Reporting Lab: [facility] [address] Performing Lab: [facility] [address] [place] [facility] CBC & DIFF NEUTROPHIL S [#/VOLUME] IN BLOOD BY AUTOMATED COUNT 4.06 10*3/uL 2.0 - 7.7 11/28 /2022 Specimen Type: BLOOD Comment: Automated Differentia l Performed Ordering Provider: NAKUSH BOWMAN Report Released Date/Time: Sep 24, 2022 01:55 PM Reporting Lab: [facility] [address] Performing Lab: [facility] [address] [place] [facility] CBC & DIFF EOSINOPHIL S [#/VOLUME] IN BLOOD BY AUTOMATED COUNT 0.16 10*3/uL 0 - 0.5 10/08 Specimen Type: BLOOD Comment: Automated Differentia l Performed Ordering Provider: ANKUSH BOWMAN Report Released Date/Time: Sep 24, 2022 01:55 PM Reporting Lab: [facility] [address] Performing Lab: [facility] [address] [place] [facility] CBC & DIFF BASOPHILS [#/VOLUME] IN BLOOD BY AUTOMATED COUNT 0.03 10*3/uL 0 - 0.2 10/08 Specimen Type: BLOOD Comment: Automated Differentia l Performed Ordering Provider: ANKUSH BOWMAN Report Released Date/Time: Sep 24, 2022 01:55 PM Reporting Lab: [facility] [address] Performing Lab: [facility] [address] [place] [facility] CBC & DIFF IG(META,MY MALACHI,PRO) 0.3 10/08 Specimen Type: BLOOD Comment: Automated Differentia l Performed Ordering Provider: ANKUSH BOWMAN Report Released Date/Time: Sep 24, 2022 01:55 PM Reporting Lab: [facility] [address] Performing Lab: [facility] [address] [place] [facility] CBC & DIFF IMMATURE GRANULOCYT ES [PRESENCE] IN BLOOD BY AUTOMATED COUNT 0.02 10*3/uL 0 - 0.1 10/08 Specimen Type: BLOOD Comment: Automated Differentia l Performed Ordering Provider: ANKUSH BOWMAN Report Released Date/Time: Sep 24, 2022 01:55 PM Reporting Lab: [facility] [address] Performing Lab: [facility] [address] [place] [facility] CYSTATIN C WITH EGFR CYSTATIN C [MASS/VOLU ME] IN SERUM OR PLASMA 1.38 mg/L 0.51 - 1.05 10/08 H Specimen Type: PLASMA No comment entered. Ordering Provider: ANKUSH BOWMAN Report Released Date/Time: Sep 24, 2022 01:55 PM Reporting Lab: [facility] [address] Performing Lab: [facility] [address] [facility] CYSTATIN C WITH EGFR CYSTATIN C AND GLOMERULAR FILTRATION RATE BY CYSTATIN-B ASED FORMULA PANEL - SERUM OR PLASMA 48 60 10/08 L Specimen Type: PLASMA No comment entered. Ordering Provider: ANKUSH BOWMAN Report Released Date/Time: Sep 24, 2022 01:55 PM Reporting Lab: [facility] [address] Performing Lab: [facility] [address] [facility] VIT D 25-OH,TO ZAMZAM 25-HYDROXY VITAMIN D3 [MASS/VOLU ME] IN SERUM OR PLASMA 54 ng/mL 12 - 50 10/08 H Specimen Type: SERUM No comment entered. Ordering Provider: ANKUSH BOWMAN Report Released Date/Time: Sep 24, 2022 01:55 PM Reporting Lab: [facility] [address] Performing Lab: [facility] [address] [facility] Encounters Combined list of: 1) Encounters from Department of Veterans Affairs facilities going back up to thelast 18 months. 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 Location Location Details Encounter Type Encounter Number Reason For Visit Attending Provider ADM Date DC Date Status Disposition Source [facility] Outpatient Encounter [id number] [facility] HC PRO PHONE CALL 11-20 MIN [id number] Diagnos is: ICD-10- CM Z73.6 Limitat ion of activit ies due to disabil ity<br/ > BOUSLOG,RY AN P 04/23 [facility] Outpatient Encounter [id number] 04/24 [facility] Encounter [id number] 05/24 [facility] OFF/OP EST MAY X REQ PHY/QHP [id number] Diagnos is: ICD-10- CM G82.20 Paraple mary kay, unspeci fied
VIOLA YOON NDA 05/28 [facility] WHEELCHAIR MNGMENT TRAINING [id number] Diagnos is: ICD-10- CM Z73.6 Limitat ion of activit ies due to disabil ity<br/ > BOUSLOG,RY AN P 06/10 [facility] En[facility] [id number] 10/28 [facility] Encounter [id number] 11/20 [facility] Encounter [id number] 05/12 [facility] En[facility] [id number] 07/23 [facility] Encounter [id number] DEE ANDERS 07/28 [facility] Social History Combined list of available smoking, tobacco, and other social history from 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 Social History Type Response Date Comment Sour e Tobacco smoking status [facility] NEVER USED 05/28/20 22 [facility] This section is an empty social history section. DoD Advance Directives List of completed, amended, or rescinded Advance Directives on record at Department of 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 An actual copy of the Directive is not included. Date Advance Directive Provider Source 02/05/2023 ADVANCE DIRECTIVE DISCUSSION [facility]
--- OUTSIDE RECORDS SUMMARY | 2024-08-24 13:07 | XMS_ITS | Encounter Summary ---
Author Organization [facility] Address [address], [place] [address] Care Team Providers Care Farm Loan Inspector Name Role Phone Franklin Squires MD Primary Care Provider Encounter Details Date Type Department Care Team (Late st Contact Info) Description 02/09/2016 [facility] [address] [facility] [place], [place] [id number] Jodi Aguila PA-C [address] [place] [address] PATIENT LIFT PRESCRIPTION Social History Tobacco Use [...] filedocumented in this encounter Care Teams Farm Loan Inspector Relationship Specialty Start Date End Date Franklin Squires MD [address] [facility] L[place] [phone] PCP - General Family Practice 03/08/16 documented as of this encounter
--- OUTSIDE RECORDS SUMMARY | 2024-08-24 13:07 | XMS_ITS | Encounter Summary ---
Author Organization [facility] Address [address] [address] Care Team Providers Care Coupler Name Role Phone Franklin Squires MD Primary Care Provider Encounter Details Date Type Department Care Team (Late st Contact Info) Description 08/20/2014 [facility] External to [facility]-ADMIT H/P Social History Tobacco [...] on filedocumented in this encounter Care Teams Coupler Relationship Specialty Start Date End Date [facility] Squires [facility] [place] [phone] PCP - General Family Practice 03/08/16 documented as of this encounter
--- OUTSIDE RECORDS SUMMARY | 2024-08-24 13:07 | XMS_ITS | Encounter Summary ---
Author Organization [facility] Address [address], [place] [address] Care Team Providers Care Extracorporeal Circulation Specialist Name Role Phone Franklin Squires MD Primary Care Provider Encounter Details Date Type Department Care Team (Late st Contact Info) Description 01/06/2016 Correspondence [facility] Radiology [address] [place] [id number] Radiology, Provider MRI SAFETY SHEET AND COMPATIBILITY [...] on filedocumented in this encounter Care Teams Extracorporeal Circulation Specialist Relationship Specialty Start Date End Date Franklin Squires MD [address] [place], [place] [address]LES [place] [address] PCP - General Family Practice 03/08/16 documented as of this encounter
--- OUTSIDE RECORDS SUMMARY | 2024-08-24 13:07 | XMS_ITS | Encounter Summary ---
Author Organization [facility] Address [address], [place] [address] Care Team Providers Care Aboriginal Ceremonial Celebrant Name Role Phone Franklin Squires MD Primary Care Provider [phone] Encounter Details Date Type Department Care Team [...] on filedocumented in this encounter Care Teams Aboriginal Ceremonial Celebrant Relationship Specialty Start Date End Date Franklin Squires MD [address] [facility] [address] PCP - General Family Practice 03/08/16 documented as of this encounter
--- OUTSIDE RECORDS SUMMARY | 2024-08-24 13:07 | XMS_ITS | Encounter Summary ---
Author Organization [facility] Address [address], [place] [address] Care Team Providers Care Drilling Foreman Name Role Phone Franklin Squires MD Primary Care Provider [phone] Encounter Details Date Type Department Care Team [...] on filedocumented in this encounter Care Teams Drilling Foreman Relationship Specialty Start Date End Date Franklin Squires MD [address] [facility] [address] PCP - General Family Practice 03/08/16 documented as of this encounter
--- OUTSIDE RECORDS SUMMARY | 2024-08-24 13:07 | XMS_ITS | Clinical Summary ---
Author Organization [facility] Address [address] [place] [address] Care Team Providers Care Records Management Technician Name Role Phone Franklin Squires MD Primary Care Provider [phone] Source Comments You are receiving this document [...] for each transition of care or referral. 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 0 02/17/2014 [...] Comments Blood Pressure 120/63 01/18/2022 12:59 PM [employer] CAR[employer] OPERATIONS SUPERVISOR Pulse 87 01/18/2022 12:59 PM [employer] OPERATIONS SUPERVISOR Temperature 36.3 ??C (97.4 ??F) 01/18/2022 [...] this topic Medical Devices Implanted Type Area Armoring Machine Operator Device Identifier Shelf Expiration Date Model / Serial / Lot [id number] 4ml Tisseel Explanted:([place] ntity not on file) BIOLOGIC N/A: NECK Lynne Fenwall 09/10/2011 [id number] / [id number] / [id number] Description:posterior Cath Intrathecal Indura - [id number] Implanted:Qty: 1 on 05/09/2010 at [facility] DEVICE Right: LUMBAR SPINE [employer] 01/18/2012 8709 / N/A / [id number] Cath Intrathecal Indura - [id number] Implanted:Qty: 1 on 05/29/2010 at [facility] DEVICE [employer] 8709 / / Scr Indira Conic 7.3x80 - [id number] Implanted:Qty: 1 on 03/13/2011 at [facility] DEVICE Right: FEMUR DISTAL Synthes [facility] 0 / NONE / NONE Plt Lcp Cndl Rt 4.5x170 6h - [id number] Implanted:Qty: 1 on 03/13/2011 at [facility] DEVICE Right: FEMUR DISTAL [employer] [place] 222.656 / NONE / NONE Description:6 hole 170mm rig ht 4.5mm lcp condylar plate Scr Didier Ss Sftp 4.5x40 - [id number] Implanted:Qty: 1 on 03/13/2011 at [facility] DEVICE Left: FEMUR DISTAL [employer] [place] 214.840 / NONE / NONE Scr Didier Ss Sftp 4.5x50 - [id number] Implanted:Qty: 1 on 03/13/2011 at [facility] DEVICE Left: FEMUR DISTAL [employer] [place] 214.850 / NONE / NONE Scr Indira Lk 5.0x80 - [id number] Implanted:Qty: 2 on 03/13/2011 at [facility] DEVICE Left: FEMUR DISTAL [employer] [place] 02.205.08 0 / NONE / NONE Scr Indira Lk 5.0x85 - [id number] Implanted:Qty: 2 on 03/13/2011 at [facility] DEVICE Left: FEMUR DISTAL [employer] [place] 02.205.08 5 / NONE / NONE Scr Lk Sftp T25 5.0x50 - [id number] Implanted:Qty: 1 on 03/13/2011 at [facility] DEVICE Left: FEMUR DISTAL [employer] [place] 212.219 / NONE / NONE Scr Lk Sftp T25 5.0x60 - [id number] Implanted:Qty: 1 on 03/13/2011 at [facility] DEVICE Left: FEMUR DISTAL [employer] [place] 212.221 / NONE / NONE Scr Indira Conic 7.3x85 - [id number] Implanted:Qty: 1 on 03/13/2011 at [facility] DEVICE Left: FEMUR DISTAL [employer] [place] 02.207.28 5 / NONE / NONE Plt Lcp Cndl Lt 4.5x170 6h - [id number] Implanted:Qty: 1 on 03/13/2011 at [facility] DEVICE Left: FEMUR DISTAL [employer] [place] 222.657 / NONE / NONE Description:6 hole 170mmleng th left 4.5mm lcp condylar plate. Scr Didier Sftp 3.5x60 F-Thrd - [id number] Implanted:Qty: 1 on 03/13/2011 at [facility] DEVICE Left: TIBIA PROXIMAL [employer] [place] 204.860 / NONE / NONE Scr Star Lk Sftp 3.5x32 - [id number] Implanted:Qty: 1 on 03/13/2011 at [facility] DEVICE Left: TIBIA PROXIMAL [employer] [place] 212.112 / NONE / NONE Scr Star Lk Sftp 3.5x55 - [id number] Implanted:Qty: 2 on 03/13/2011 at [facility] DEVICE Left: TIBIA PROXIMAL [employer] [place] 212.123 / NONE / NONE Scr Star Lk Sftp 3.5x60 - [id number] Implanted:Qty: 2 on 03/13/2011 at [facility] DEVICE Left: TIBIA PROXIMAL [employer] [place] 212.124 / NONE / NONE Plt Lcp M/Prox Lt 3.5x94 4h - [id number] Implanted:Qty: 1 on 03/13/2011 at [facility] DEVICE Left: TIBIA PROXIMAL [employer] [place] 239.955 / NONE / NONE Scr Didier Ss Sftp 4.5x36 - [id number] Implanted:Qty: 1 on 03/13/2011 at [facility] DEVICE Right: FEMUR DISTAL [employer] [place] 214.836 / NONE / NONE Scr Didier Ss Sftp 4.5x44 - [id number] Implanted:Qty: 1 on 03/13/2011 at [facility] DEVICE Right: FEMUR DISTAL [employer] [place] 214.844 / NONE / NONE Scr Indira Lk 5.0x75 - [id number] Implanted:Qty: 1 on 03/13/2011 at [facility] DEVICE Right: FEMUR DISTAL [employer] [place] 02.205.07 5 / NONE / NONE Scr Indira Lk 5.0x85 - [id number] Implanted:Qty: 2 on 03/13/2011 at [facility] DEVICE Right: FEMUR DISTAL [employer] [place] 02.205.08 5 / NONE / NONE Scr Lk Sftp T25 5.0x44 - [id number] Implanted:Qty: 1 on 03/13/2011 at [facility] DEVICE Right: FEMUR DISTAL [employer] [place] 212.216 / NONE / NONE Scr Lk Sftp T25 5.0x65 - [id number] Implanted:Qty: 1 on 03/13/2011 at [facility] DEVICE Right: FEMUR DISTAL [employer] [place] 212.222 / NONE / NONE Plt Lp T Ti Str 4h - [id number] Implanted:Qty: 3 on 07/28/2014 by Cooper Shelley MD at [facility] DEVICE Right: SKULL [employer] [place] 421.504 / / Scr Matrix Sfdr 4mm - [id number] Implanted:Qty: 6 on 07/28/2014 by Cooper Shelley MD at [facility] DEVICE Right: SKULL [employer] [place] 04.503.10 4.01 / / Lead Linear 3-4 8 Contact 50cm - [id number] Implanted:Qty: 1 on 03/08/2016 by Zelalem Cohen DO at [facility] DEVICE N/A: OTHER-SEE DESCRIPTION [facility] 09/10/2017 [id number] 2500 / / [id number] Description:LUMBAR Lead Linear 3-4 8 Contact 50cm - [id number] Implanted:Qty: 1 on 03/08/2016 by Zelalem Cohen DO at [facility] DEVICE N/A: OTHER-SEE DESCRIPTION [employer] [employer] [facility] 09/10/2017 [id number] 2500 / / [id number] Description:LUMBAR Lead Linear 3-4 8 Contact 50cm - [id number] Implanted:Qty: 1 on 03/08/2016 by Zelalem Cohen DO at [facility] DEVICE N/A: OTHER-SEE DESCRIPTION [facility] 09/10/2017 [id number] 2500 / / [id number] Description:LUMBAR Lead Linear 3-4 8 Contact 50cm - [id number] Implanted:Qty: 1 on 03/08/2016 by Zelalem Cohen DO at [facility] DEVICE N/A: OTHER-SEE DESCRIPTION [facility] 09/10/2017 [id number] 2500 / / [id number] Description:LUMBAR Lead Linear 3-4 8 Contact 50cm - [id number] Implanted:Qty: 1 on 05/24/2016 by Zelalem Cohen DO at [facility] DEVICE N/A: SPINE LUMBAR POSTERIOR [facility] 01/31/2018 [id number] 2500 / [id number] / Lead Linear 3-4 8 Contact 50cm - [id number] Implanted:Qty: 1 on 05/24/2016 by Zelalem Cohen DO at [facility] DEVICE N/A: SPINE LUMBAR POSTERIOR [facility] 04/26/2018 [id number] 2500 / [id number] / Lead Linear 3-4 8 Contact 50cm - [id number] Implanted:Qty: 1 on 05/24/2016 by Zelalem Cohen DO at [facility] DEVICE N/A: SPINE LUMBAR POSTERIOR [facility] 04/26/2018 [id number] 2500 / [id number] / Lead Linear 3-4 8 Contact 50cm - [id number] Implanted:Qty: 1 on 05/24/2016 by Zelalem Cohen DO at [facility] DEVICE N/A: SPINE LUMBAR POSTERIOR [facility] 04/26/2018 [id number] 2500 / [id number] / Generator Pulse Spectra - [id number] Implanted:Qty: 1 on 05/24/2016 by Zlealem Cohen DO at [facility] DEVICE N/A: SPINE LUMBAR POSTERIOR [facility] 05/08/2018 [id number] 20 / [id number] / [id number] [place] [employer] - [id number] Implanted:Qty: 1 on 05/24/2016 by Zelalem Cohen DO at [facility] DEVICE N/A: SPINE LUMBAR POSTERIOR [facility] 05/02/2018 [id number] 60 / / [id number] [place] [employer] - [id number] Implanted:Qty: 1 on 05/24/2016 by Zelalem Cohen DO at [facility] DEVICE N/A: SPINE LUMBAR POSTERIOR [facility] 02/28/2018 [id number] 60 / / [id number] Procedures Procedure Name Priority Date/Time Associated Diagnosis Comments CREATININE/GFR, WB POC Routine 01/06/2016 12:04 PM AIR [employer]PERATIONS SUPERVISOR Back pain, 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 HGB A1C Routine 07/29/2014 3:19 AM CDT from Last 3 Months or Most Recently Relevant to Health Maintenance Results * CREATININE/GFR, WB POC (01/06/2016 12:04 PM AIR CARGO GROUND OPERATIONS SUPERVISOR) Pathologist [facility] Creat Whole Blood 0.9 0.66 - 1.25 mg/dl [facility] GFR, Estimated >60 >60 ml/min/1.7 3m2 [facility] GFR, Est., If Black >60 >60 ml/min/1.7 3m2 [facility] 01/06/2016 12:0 4 PM [employer] OPERATIONS SUPERVISOR 01/06/2016 12:21 PM AIR CARGO GROUND OPERATIONS SUPERVISOR Trae Blair MD LAB_1 [facility] [phone] * (ABNORMAL) HGB A1C (07/29/2014 3:19 AM CDT) Hgb A1c 6.4(H) 4.3 - 6.1 % [facility] Comment: The usual A1C goal for people with diabetes, age 18-75, is <8.0%. Physicians may recommend a higher or lower goal for specific individuals. 07/29/2014 3:19 AM CDT 07/29/2014 3:22 AM CDT Narrative [facility] - 07/29/2014 12:53 PM CDT [facility], [address] [place] [address] ??[id number] [place] Wei PA-C LAB_[address] [address] from Last 3 Months or Most Recently [...] 5:44 PM 07/28/2014 6:50 PM Care Teams Records Management Technician Relationship Specialty Start Date End Date Franklin Squires MD [address] [place] [address] AvLES Wong [address] PCP - General Family Practice 03/08/16
--- OUTSIDE RECORDS SUMMARY | 2024-08-24 13:07 | XMS_ITS | Clinical Summary ---
Author Organization [facility] Address [place], [place] [address] Care Team Providers Care Mapper Name Role Phone Zelalem Cohen MD Unavailable [phone] May Randle) Unavailable Franklin Squires MD Primary Care Provider Fred Craft Unavailable [phone] Diane Charles MD Unavailable [phone] Julia Ware RN Unavailable [phone] Allergies Active Allergy Reactions Criticality Noted Date [...] bedIndications:Non-heal ing surgical wound, subsequent encounter Drive [employer] 8 inch low loss mattress and 1/2 rails. Semi-electric bed. Length of need 6 weeks. Bed peach grower:no 1 unit 018 Active acetaminophen (TYLENOL EXTRA [...] 60mm, Cut-to-Fit 01/16 - 2 11/18. Item #[id number]. 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 Bright PM&R: Dr. May Randle Pain Management: Dr. 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 [...] 04/16/2007 10/01/2007 Overview (04/16/2007): S/P IVC Filter retirement (current) use of anticoagulants 02/19/2007 09/27/2008 Depressive disorder, not elsewhere classified 02/14/20 07 01/15/2018 Abnormality of gait 12/24/2006 09/27/20 08 Urinary tract infection, site not specified 12/24/2006 01/15/2018 BENIGN ESSENTIAL HYPERTENSION 12/24/2006 04/17/2016 Overview (12/24/2006): borderline Necrotizing fasciitis 2018 Type 2 diabetes mellitus Encounters Date Type Department Care Team Description 08/21/2024 1:00 PM CDT Nurse/Clinic Staff Only [address] [place] [address] Nurse/Clinic Staff Only 08/21/2024 Travel 08/21/2024 Anticoagulation (warfarin) [address] [place] [address] , [facility] Anticoagulation (Acelis) 08/20/2024 11:27 AM CDT - 08/20/2024 11:59 PM CDT Hospital Encounter [facility] [address] [facility] [place] [address] Wound infection (Primary Dx) 08/19/2024 3:00 PM CDT Nurse/Clinic Staff Only [address] [place] [address] Nurse/Clinic Staff Only (Cath Change ) 08/19/[address] [place] [address] Diane Charles MD Appointment 08/19/2024 Travel 08/18/[address] [place] [address] Franklin Squires MD Questions 08/14/2024 Nurse Triage [address] [place] [address] Franklin Squires MD Catheter Problem 08/14/2024 Anticoagulation (warfarin) [address] [place] [address] 1, [facility] Anticoagulation (Acelis) 08/13/2024 11:23 AM CDT - 08/13/2024 11:59 PM CDT Hospital Encounter [address] [place] [address] Wound infection 08/13/2024 Travel 08/13/2024 Hospital/[facility] Telepho ne Encounter [address] [place] [address] Yen Hernandez RN Pre Procedure (PVP) 08/07/2024 Anticoagulation (warfarin) [address] [place] [address] 1, [facility] Anticoagulation (Acelis) 08/06/2024 11:27 AM CDT - 08/06/2024 11:59 PM CDT Hospital Encounter [facility] [address] [facility] [place] [address] Wound infection (Primary Dx) 08/06/2024 Travel 08/06/2024 Hospital/[facility] Telepho ne Encounter [facility] [address] [facility] [place] [address] Yen Hernandez RN Pre Procedure (PVP) 08/04/[address] [place] [address] Franklin Squires MD Form 07/31/2024 Anticoagulation (warfarin) [address] [place] [address] 1, [facility] Anticoagulation (Acelis) 07/30/2024 11:25 AM CDT - 07/30/2024 11:59 PM CDT Hospital Encounter [facility] 200 [place] [address] Wound infection (Primary Dx) 07/30/2024 Hospital/[facility] Telepho ne Encounter [facility] [address] [place] [address] Yen Hernandez RN Pre Procedure (PVP) 07/29/2024 1:30 PM CDT Nurse/Clinic Staff Only [address] [address] Nurse/Clinic Staff Only (Suprapubic Cath) 07/29/[address] [place] [address] Franklin Squires MD Refill Request (Oxycodone) 07/29/2024 Travel 07/27/2024 Anticoagulation (warfarin) [address] [place] [address] 1, [facility] Anticoagulation (Acelis) 07/24/[address] [address] Franklin Squires MD Anticoagulation (new med) 07/23/2024 8:46 AM CDT - 07/23/2024 2:33 PM CDT Hospital Encounter [facility] [address] [place] [address] Yudith Mcgraw NP Wound infection (Primary Dx) Discharge Disposition: Home Health 07/23/2024 Orders Only [facility] [address] [place] [address] Yudith Mcgraw NP 1 scan: INFUSION CEFEPIME 2 MG 07/23/2024 Travel 07/22/2024 Telephone [facility] [address] [place] [address] Yen Hernandez, RN Appointment 07/22/2024 Telephone [facility] [address] [place] [address] Jennyfer Penny RN 07/15/[address] [address] Franklin Squires MD Anticoagulation (Order renewal) 07/15/2024 Anticoagulation (warfarin) [address] [address] , [facility] Anticoagulation (Acelis ) 07/14/[address] [address] Franklin Squires MD Form (Case Communication- Major drug interactions-( Warfarin) - Home Health Certification and Plan of Care - 07/08/2024-09/05/2024) 07/14/[address] [address] Franklin Squires MD Refill Request (Bupropion) 07/09/2024 Orders Only [facility] Scanner 1 scan: (1-Ord) [facility], CT PELVIS W CON, 07/09/2024 07/08/2024 1:30 PM CDT Nurse/Clinic Staff Only [address] [place] [address] Nurse/Clinic Staff Only (Cath Change ) 07/08/2024 Travel 07/07/[address] [place] [address] Franklin Squires MD Refill Request (Donepezil) 07/02/2024 1:30 PM CDT Office Visit [address] [place] [address] Franklin Squires MD Medication Management 07/02/2024 Travel 07/01/2024 Anticoagulation (warfarin) [address] [place] [address] 1, [facility] Anticoagulation (Acelis) 06/17/2024 Anticoagulation (warfarin) [address] [place] [address] 1, [facility] Anticoagulation (acelis) 06/11/[address] [place] [address] Franklin Squires MD Refill Request (Warfarin) 06/03/2024 Anticoagulation (warfarin) [address] [place] [address] 1, [facility] Anticoagulation (Acelis) 06/02/[address] [place] [address] Franklin Squires MD Refill Request (Oxycodone) from Last 3 Months Immunizations Name Administration Dates Next Due COVID-19 vaccine ([employer] 30mcg/0.3mL) 12YO+ BIVALENT PF, MDV 10/22/2022 COVID-19 vaccine ([employer] 30mcg/0.3mL) PF, MDV 01/25/2021,01/02/2021 Influenza A (H1N1), [...] Care Team (Late st Contact Info) Description 09/03/2024 11:00 AM CDT Appointment [facility] [address] [place] [address] 09/10/2024 1:15 PM CDT Office Visit [address] [address] Diane Charles MD [address] [place] [address] 10/01/2024 1:50 PM 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 Office Visit [address] [address] Franklin Squires MD 100 [facility] [place] [address] Health Maintenance Due Date Last Done Comments [...] Associated Diagnosis Comments HOME MONITOR AC Routine 08/21/2024 12:00 AM CDT CBC WITH AUTO DIFFERENTIAL Today 08/20/2024 11:47 AM CDT Wound infection BASIC METABOLIC PANEL Today 08/20/2024 11:47 AM CDT Wound infection CBC WITH AUTO DIFFERENTIAL Today 08/20/2024 11:47 AM CDT Wound infection HOME MONITOR AC Routine 08/14/2024 12:00 AM [...] MONITOR AC Routine 06/03/2024 12:00 AM CDT from Last 3 Months Results * HOME MONITOR AC (08/21/2024 12:00 AM CDT) Only the most recent of9 resultswithin the time period is included. PATIENT REPORTED HOME INR 2.3 2.00 - 3.00 ALERE HOME MONITORING 08/21/2024 Franklin Squires MD OTHER [facility] MONITORING [address] [place] [address] * (ABNORMAL) CBC WITH AUTO DIFFERENTIAL (08/20/2024 11:47 AM CDT) Only the most recent of3 resultswithin the time period is included. WHITE BLOOD COUNT 9.9 4.5 - 11.0 thou/cu mm 08/20/2024 11:54 AM [facility] RED BLOOD COUNT 4.14(L) 4.30 - 5.90 mil/cu mm 08/20/2024 11:54 AM [facility] HEMOGLOBIN 13.0(L) 13.5 - 17.5 g/dL 08/20/2024 11:54 AM [facility] HEMATOCRIT 38.8 37.0 - 53.0 % 08/20/2024 11:54 AM [facility] MCV 94 80 - 100 fL 08/20/2024 11:54 AM [facility] MCH 31.4 26.0 - 34.0 pg 08/20/2024 11:54 AM [facility] MCHC 33.5 32.0 - 36.0 g/dL 08/20/2024 11:54 AM [facility] RDW 15.5 11.5 - 15.5 % 08/20/2024 11:54 AM [facility] PLATELET COUNT 140 140 - 440 thou/cu mm 08/20/2024 11:54 AM [facility] MPV 10.7 6.5 - 11.0 fL 08/20/2024 11:54 AM [facility] % NEUT 63.7 % 08/20/2024 11:54 AM [facility] % LYMPH 23.7 % 08/20/2024 11:54 AM [facility] % MONO 11.1 % 08/20/2024 11:54 AM [facility] % EOS 1.3 % 08/20/2024 11:54 AM [facility] % BASO 0.2 % 08/20/2024 11:54 AM [facility] ABSOLUTE NEUTROPHILS 6.3 1.7 - 7.0 thou/cu mm 08/20/2024 11:54 AM [facility] ABSOLUTE LYMPHOCYTES 2.4 0.9 - 2.9 thou/cu mm 08/20/2024 11:54 AM [facility] ABSOLUTE MONOCYTES 1.1(H) <0.9 thou/cu mm 08/20/2024 11:54 AM [facility] ABSOLUTE EOSINOPHILS 0.1 <0.5 thou/cu mm 08/20/2024 11:54 AM [facility] ABSOLUTE BASOPHILS 0.0 <0.3 thou/cu mm 08/20/2024 11:54 AM [facility] Blood BLOOD SPECIMEN / Unknown Line/Port / Unknown 08/20/2024 11:47 AM CDT 08/20/2024 11:50 AM [facility] - 08/20/2024 11:54 AM T Fax results to [phone] Yudith Mcgraw NP HEMATOLOGY [facility] 200 [facility] [place] [address] * (ABNORMAL) BASIC METABOLIC PANEL (08/20/2024 11:47 AM CDT) Only the most recent of4 resultswithin the time period is included. SODIUM 137 136 - 145 mmol/L 08/20/2024 12:09 PM [facility] POTASSIUM 4.5 3.5 - 5.1 mmol/L 08/20/2024 12:09 PM [facility] CHLORIDE 99 98 - 107 mmol/L 08/20/2024 12:09 PM [facility] CO2,TOTAL 30(H) 22 - 29 mmol/L 08/20/2024 12:09 PM [facility] ANION GAP 8 5 - 18 08/20/2024 12:09 PM [facility] GLUCOSE 103(H) 70 - 99 mg/dL 08/20/2024 12:09 PM [facility] CALCIUM 9.3 8.8 - 10.2 mg/dL 08/20/2024 12:09 PM [facility] BUN 17 8 - 23 mg/dL 08/20/2024 12:09 PM [facility] CREATININE 0.62(L) 0.70 - 1.20 mg/dL 08/20/2024 12:09 PM [facility] BUN/CREAT RATIO 27(H) 10 - 20 12:09 PM [facility] eGFR >90 >90 mL/min/1.7 3m2 08/20/2024 12:09 PM [facility] Comment:As of 2022, eG FR is calculated by the CKD-EPI creatinine equation without race adjustment. ??eGFR can be influenced by muscle mass, exercise, and diet. ??The reported eGFR is an estimation only and is only applicable if the renal function is stable. Blood BLOOD SPECIMEN / Unknown Line/Port / Unknown 08/20/2024 11:47 AM CDT 08/20/2024 11:50 AM CDT Yudith Mcgraw SENIOR BUSINESS MANAGER CHEMISTRY Performing Organization Address [facility]/ZIP Co de Phone Number [facility] [address] [place] [address] * EXTRA TUBE LAVENDER (07/23/2024 10:59 AM CDT) Blood BLOOD SPECIMEN / Unknown Extra Tube / Unknown 07/23/2024 10:59 AM CDT 07/23/2024 11:06 AM CDT Doctor Unknown LABORATORY Performing Organization Address [facility] Co de Phone Number [facility] [address] [place] [address] * EXTRA TUBE BLUE (07/23/2024 10:59 AM CDT) Blood BLOOD SPECIMEN / Unknown Extra Tube / Unknown 07/23/2024 10:59 AM CDT 07/23/2024 11:06 AM CDT Doctor Unknown LABORATORY Performing Organization Address City/[facility] Co de Phone Number [facility] [address] [place] [address] * XR CHEST 1 VIEW PORTABLE (07/23/2024 [...] - 199 mg/dL 07/02/2024 3:04 PM CDT [facility] Comment: Cholesterol, Total Reference Ranges Desirable <200 mg/dL Borderline 200-239 mg/dL High >=240 mg/dL TRIGLYCERIDES 58 <150 mg/dL 07/02/2024 3:04 PM T [facility] HDL CHOLESTEROL 56 >40 mg/dL 3:04 PM T [facility] NON-HDL CHOLESTEROL 66 <145 mg/dl 07/02/2024 3:04 PM T [facility] CHOL/HDL RATIO 2.18 <4.50 07/02/2024 3:04 PM T [facility] LDL CHOLESTEROL 54 <=130 mg/dL 07/02/2024 3:04 PM [facility] VLDL CHOLESTEROL 12 <=30 mg/dL 07/02/2024 3:04 PM [facility] PROVIDER ORDERED STATUS RANDOM 07/02/2024 3:04 PM [facility] Blood BLOOD SPECIMEN / Unknown Venipuncture / Unknown 07/02/2024 2:14 PM CDT 07/02/2024 2:14 PM CDT Franklin Squires MD CHEMISTRY [facility] [address] [place] [address] * (ABNORMAL) CBC W PLT NO DIFF (07/02/2024 2:14 PM CDT) WHITE BLOOD COUNT 8.5 4.5 - 11.0 thou/cu mm 07/02/2024 2:58 PM T [facility] RED BLOOD COUNT 4.75 4.30 - 5.90 mil/cu mm 07/02/2024 2:58 PM CDT [facility] HEMOGLOBIN 14.1 13.5 - 17.5 g/dL 07/02/2024 2:58 PM T [facility] HEMATOCRIT 42.2 37.0 - 53.0 % 07/02/2024 2:58 PM T [facility] MCV 89 80 - 100 fL 07/02/2024 2:58 PM T [facility] MCH 29.7 26.0 - 34.0 pg 07/02/2024 2:58 PM CDT [facility] MCHC 33.4 32.0 - 36.0 g/dL 07/02/2024 2:58 PM CDT [facility] RDW 18.3(H) 11.5 - 15.5 % 07/02/2024 2:58 PM CDT [facility] PLATELET COUNT 159 140 - 440 thou/cu mm 07/02/2024 2:58 PM CDT [facility] MPV 10.7 6.5 - 11.0 fL 07/02/2024 2:58 PM CDT [facility] Blood BLOOD SPECIMEN / Unknown Venipuncture / Unknown 07/02/2024 2:14 PM CDT 07/02/2024 2:14 PM CDT Franklin Squires MD HEMATOLOGY [facility] [address] [place] [address] * HEMOGLOBIN A1C MONITORING (POCT) (07/02/2024 2:14 PM CDT) HEMOGLOBIN A1C MONITORING (POCT) 5.9 <=6.4 % 07/02/2024 2:49 PM CDT [facility] Blood BLOOD SPECIMEN / Unknown Venipuncture / Unknown 07/02/2024 2:14 PM CDT 07/02/2024 2:14 PM CDT Narrative [facility] - 07/02/2024 2:49 PM CDT ? [...] Anemias, Splenectomy ? Franklin Squires MD CHEMISTRY [facility] [address] [place] [address] from Last 3 Months Additional [...] positive culture): resides in acute/long term care administrator care, receiving hemodialysis, has chronic open wounds/skin damage, has long-term percutaneous indwelling medical devices Exclusions for nares collection (if <12 months since positive culture) include all of the previous exclusions plus patients on antibiotics 7 days prior to collection 03/13/2018 03/20/2024 Advance Directives Documents on File Type Date Recorded Patient Administrative Office Specialist Expl anation Treatment Guidelines 08/04/2024 Healthcare Directive [...] Code Status Discussion: Reviewed Preferences Care Teams Mapper Relationship Specialty Start Date End Date Franklin Squires MD [address] [place] [address] PCP - General Family Practice 10/18/15 Zelalem Cohen MD Physical Therapist 03/13/12 May Randle Md, MD Physical Medicine and Rehabilitation 03/13/12 Luana, FAUSTINO Krueger [address] [place] [address] Director Wholesale 05/03/17 Diane Charles MD [address] [place] [address] Surgery - Urology 01/17/23 Julia Ware, RN [address] [place] [address] Registered Nurse 07/17/23
--- OUTSIDE RECORDS SUMMARY | 2024-08-24 13:07 | XMS_ITS | Encounter Summary ---
Author Organization [facility] Address [address] [address] Care Team Providers Care Primary Substance Abuse Counselor Name Role Phone Franklin Squires MD Primary Care Provider [phone] Encounter Details Date Type Department Care Team (Latest Contact Info) Description 12/11/2017 Correspondence Physiatry/Physical Medicine at [facility] [address] [place] [address] May Randle MD [address] [place] [address] [employer] Social History Tobacco Use [...] filedocumented in this encounter Care Teams Primary Substance Abuse Counselor Relationship Specialty Start Date End Date Franklin Squires MD [address] [place] [address] [place] [address] PCP - General Family Practice 03/08/16 documented as of this encounter
--- OUTSIDE RECORDS SUMMARY | 2024-08-24 13:07 | XMS_ITS | Encounter Summary ---
Author Organization [facility] Address [address], [place] [address] Care Team Providers Care Fish Bait Picker Name Role Phone Franklin Squires MD Primary Care Provider Encounter Details Date Type Department Care Team (Late st Contact Info) Description 11/23/2015 Correspondence External to External, [place] [address] LETTER [facility] Social History Tobacco [...] on filedocumented in this encounter Care Teams Fish Bait Picker Relationship Specialty Start Date End Date Franklin Squires MD [address] [place] [address] [place] [address] PCP - General Family Practice 03/08/16 documented as of this encounter
--- OUTSIDE RECORDS SUMMARY | 2024-08-24 13:07 | XMS_ITS | Encounter Summary ---
Author Organization [facility] [address], [place] [address] Care Team Providers Care Relocation Counselor Name Role Phone Franklin Squires MD Primary Care Provider Encounter Details Date Type Department Care Team (Late st Contact Info) Description 11/10/2014 Correspondence [facility] Physical Therapy [address] [place] [address] Trudi Raymundo, PT [address] [place] [address] LETTER OF MEDICAL NECESSITY Social History Tobacco [...] on filedocumented in this encounter Care Teams Relocation Counselor Relationship Specialty Start Date End Date Franklin Squires MD 100 [facility] [place] [address] PCP - General Family Practice 03/08/16 documented as of this encounter
--- OUTSIDE RECORDS SUMMARY | 2024-08-24 13:07 | XMS_ITS | Encounter Summary ---
[facility] Address [address], [place] [address] Care Team Providers Care Animal Care Attendant Name Role Phone Franklin Squires MD Primary Care Provider [phone] Encounter Details Date Type Department Care Team (Late st Contact Info) Description 07/28/2014 Outside Hospital External to External, Provider No address [address] ER VISIT/TRANSFER Social History Tobacco Use [...] on filedocumented in this encounter Care Teams Animal Care Attendant Relationship Specialty Start Date End Date Franklin Squires MD 100 [facility] [address] PCP - General Family Practice 03/08/16 documented as of this encounter
--- OUTSIDE RECORDS SUMMARY | 2024-08-24 13:07 | XMS_ITS | Encounter Summary ---
Author Organization [facility] Address [address] [address] Care Team Providers Care Career And Guidance Counselor Name Role Phone Franklin Squires MD Primary Care Provider Encounter Details Date Type Department Care Team (Late st Contact Info) Description 06/07/2015 Correspondence [facility] Radiology [address] [place] [address] Radiology, Provider MRI SAFETY SHEET AND COMPATIBILITY [...] filedocumented in this encounter Care Teams Career And Guidance Counselor Relationship Specialty Start Date End Date Franklin Squires MD [address] [place], [place] [address] [address] PCP - General Family Practice 03/08/16 documented as of this encounter
--- OUTSIDE RECORDS SUMMARY | 2024-08-24 13:07 | XMS_ITS | Encounter Summary ---
Author Organization [facility] Address [address], [place] [address] Care Team Providers Care Forge Tender Name Role Phone Franklin Squires MD Primary Care Provider Encounter Details Date Type Department Care Team (Late st Contact Info) Description 08/22/2014 Outside Hospital External to [facility] HOSP-D/C SUMMARY Social History Tobacco Use [...] on filedocumented in this encounter Care Teams Forge Tender Relationship Specialty Start Date End Date Franklin Squires MD [address] [facility] [address] PCP - General Family Practice 03/08/16 documented as of this encounter
--- OUTSIDE RECORDS SUMMARY | 2024-08-24 13:07 | XMS_ITS | Encounter Summary ---
Author Organization [facility] Address [address] [address] Care Team Providers Care Eyelet Maker Name Role Phone Franklin Squires MD Primary Care Provider Encounter Details Date Type Department Care Team (Late st Contact Info) Description 12/14/2014 Correspondence [facility] 401 Physical Medicine [address] [facility] [place] [address] May Randle MD [address] [place] [address] DETAILED PRODUCT DESCRIPTION Social History Tobacco Use [...] on filedocumented in this encounter Care Teams Eyelet Maker Relationship Specialty Start Date End Date Franklin Squires MD 100 [facility] [place] [address] PCP - General Family Practice 03/08/16 documented as of this encounter
--- OUTSIDE RECORDS SUMMARY | 2024-08-24 13:07 | XMS_ITS ---
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
--- OUTSIDE RECORDS SUMMARY | 2024-08-24 13:07 | XMS_ITS | Encounter Summary ---
Author Organization [facility] [address], [place] [address] Care Team Providers Care Electric Meter Installer Helper Name Role Phone Franklin Squires MD Primary Care Provider Encounter Details Date Type Department Care Team (Late st Contact Info) Description 07/08/2015 Correspondence [facility] Physical Therapy [address] [place] [address] Trudi Raymundo, PT [address] [place] [address] ADDENDUM FOR LETTER OF MEDICAL NECESSITY Social [...] filedocumented in this encounter Care Teams Electric Meter Installer Helper Relationship Specialty Start Date End Date Franklin Squires MD 100 [facility] [address] PCP - General Family Practice 03/08/16 documented as of this encounter
--- OUTSIDE RECORDS SUMMARY | 2024-08-24 13:07 | XMS_ITS | Encounter Summary ---
Author Organization [facility] Address [address], [place] [address] Care Team Providers Care Speaking Unit Assembler Name Role Phone Franklin Squires MD Primary Care Provider [phone] Encounter Details Date Type Department Care Team (Late st Contact Info) Description 12/16/2014 Correspondence External to External, [place] [address] MEDICARE PLAN OF CARE RECERT Social History [...] on filedocumented in this encounter Care Teams Speaking Unit Assembler Relationship Specialty Start Date End Date Franklin Squires MD [address] [place] [address] [facility] [place] [address] PCP - General Family Practice 03/08/16 documented as of this encounter
--- OUTSIDE RECORDS SUMMARY | 2024-08-24 13:07 | XMS_ITS | Encounter Summary ---
Author Organization [facility] Address [address], [place] [address] Care Team Providers Care Sign Hanger Supervisor Name Role Phone Franklin Squires MD Primary Care Provider Encounter Details Date Type Department Care Team (Late st Contact Info) Description 09/07/2014 Correspondence [facility] Radiology [address] [place] [address] Radiology, Provider MRI SAFETY SHEET AND COMPATIBILITY [...] filedocumented in this encounter Care Teams Sign Hanger Supervisor Relationship Specialty Start Date End Date Franklin Squires MD [address] [place], [place] [address] [address] PCP - General Family Practice 03/08/16 documented as of this encounter
--- OUTSIDE RECORDS SUMMARY | 2024-08-24 13:07 | XMS_ITS | Encounter Summary ---
Author Organization [facility] Address [address], [place] [address] Care Team Providers Care Liner Machine Operator Name Role Phone Franklin Squires MD Primary Care Provider [phone] Encounter Details Date Type Department Care Team [...] on filedocumented in this encounter Care Teams Liner Machine Operator Relationship Specialty Start Date End Date Franklin Squires MD 100 [facility] [address] PCP - General Family Practice 03/08/16 documented as of this encounter
--- OUTSIDE RECORDS SUMMARY | 2024-08-24 13:07 | XMS_ITS | Encounter Summary ---
Author Organization [facility] Address [address], [place] [address] Care Team Providers Care English Language Learner Teacher Name Role Phone Franklin Squires MD Primary Care Provider [phone] Encounter Details Date Type Department Care Team (Late st Contact Info) Description 08/20/2014 Outside Hospital External to [facility] Social History Tobacco Use Types [...] this encounter Care Teams English Language Learner Teacher Relationship Specialty Start Date End Date Franklin Squires MD [address] [place], [place] [address] [address] PCP - General Family Practice 03/08/16 documented as of this encounter
--- OUTSIDE RECORDS SUMMARY | 2024-08-24 13:08 | XMS_ITS | Encounter Summary ---
Author Organization [facility] [address], [place] [address] Care Team Providers Care Patient Portal Concierge Name Role Phone Franklin Squires MD Primary Care Provider [phone] Encounter Details Date Type Department Care Team (Late st Contact Info) Description 10/26/2013 Correspondence [facility] Physical Therapy [address] [place] [address] Trudi Raymundo, PT [address] [place] [address] LETTER OF MEDICAL NECESSITY Social History Tobacco [...] PT - 10/26/2013 12:00 AM CST R CONTRACT ANALYST documented in this encounter Plan of Treatment Not on file documented as of this encounter Visit Diagnoses Not on filedocumented in this encounter Care Teams Patient Portal Concierge Relationship Specialty Start Date End Date Franklin Squires MD 100 [facility] [address] PCP - General Family Practice 03/08/16 documented as of this encounter
--- OUTSIDE RECORDS SUMMARY | 2024-08-24 13:08 | XMS_ITS | Encounter Summary ---
Author Organization [facility] Address [address], [place] [address] Care Team Providers Care Gym Teacher Name Role Phone Franklin Squires MD Primary Care Provider Encounter Details Date Type Department Care Team (Late st Contact Info) Description 01/08/2013 Scanned History External to Transferred Record, Provider [facility] Social History Tobacco Use Types Packs/Day [...] on filedocumented in this encounter Care Teams Gym Teacher Relationship Specialty Start Date End Date Franklin Squires MD 100 [facility] [address] PCP - General Family Practice 03/08/16 documented as of this encounter
--- OUTSIDE RECORDS SUMMARY | 2024-08-24 13:08 | XMS_ITS | Encounter Summary ---
Author Organization [facility] Address [address], [place] [address] Care Team Providers Care Well Treatment Offsider Name Role Phone Franklin Squires MD Primary Care Provider [phone] Encounter Details Date Type Department Care Team (Late st Contact Info) Description 07/23/2013 Correspondence [facility] 401 Interventional Pain Management 401 [facility] [place] [address] Zelalem Cohen DO [address] [place] [address] [employer] Social History Tobacco Use Types [...] Cohen MD - 07/23/2013 12:00 AM CDT H SHADER documented in this encounter Plan of Treatment Not on file documented as of this encounter Visit Diagnoses Not on filedocumented in this encounter Care Teams Well Treatment Offsider Relationship Specialty Start Date End Date Franklin Squires MD 100 [facility] [address] PCP - General Family Practice 03/08/16 documented as of this encounter
--- OUTSIDE RECORDS SUMMARY | 2024-08-24 13:08 | XMS_ITS | Encounter Summary ---
Author Organization [facility] Address [address] [address] Care Team Providers Care Pvc Monitor Name Role Phone Franklin Squires MD Primary Care Provider Encounter Details Date Type Department Care Team (Late st Contact Info) Description 11/13/2012 Correspondence [facility] Radiology [address] [place] [address] Radiology, Provider MRI SAFETY SHEET AND COMPATIBILITY [...] RADIOLOGY, PROVIDER - 11/13/2012 12:00 AM CST FILLER documented in this encounter Plan of Treatment Not on file documented as of this encounter Visit Diagnoses Not on filedocumented in this encounter Care Teams Pvc Monitor Relationship Specialty Start Date End Date Franklin Squires MD 100 [facility] [place] [address] PCP - General Family Practice 03/08/16 documented as of this encounter
--- OUTSIDE RECORDS SUMMARY | 2024-08-24 13:08 | XMS_ITS | Encounter Summary ---
Author Organization [facility] Address [address] [address] Care Team Providers Care Toy Mechanic Name Role Phone Franklin Squires MD Primary Care Provider Encounter Details Date Type Department Care Team (Late st Contact Info) Description 05/04/2014 Correspondence [facility] 401 Physical Medicine 401 [facility] [place] [address] May Randle MD [address] [place] [address] LETTER OF MEDICAL NECESSITY FOR A WHEELCHAIR [...] on filedocumented in this encounter Care Teams Toy Mechanic Relationship Specialty Start Date End Date Franklin Squires MD 100 [facility] [place] [address] PCP - General Family Practice 03/08/16 documented as of this encounter
--- OUTSIDE RECORDS SUMMARY | 2024-08-24 13:08 | XMS_ITS | Encounter Summary ---
Author Organization [facility] Address [address] [address] Care Team Providers Care Land Conservation Specialist Name Role Phone Franklin Squires MD Primary Care Provider Encounter Details Date Type Department Care Team (Late st Contact Info) Description 04/20/[address] [address] Radiology, Provider MRI SAFETY SHEET AND COMPATIBILITY [...] filedocumented in this encounter Care Teams Land Conservation Specialist Relationship Specialty Start Date End Date Franklin Squires MD 100 [facility] [place] [address] PCP - General Family Practice 03/08/16 documented as of this encounter
--- OUTSIDE RECORDS SUMMARY | 2024-08-24 13:08 | XMS_ITS | Encounter Summary ---
Author Organization [facility] [address], [place] [address] Care Team Providers Care Travel Registered Nurse Nicu Name Role Phone Franklin Squires MD Primary Care Provider [phone] Encounter Details Date Type Department Care Team (Late st Contact Info) Description 02/05/2014 Correspondence [facility] Physical Therapy [address] [place] [address] Trudi Raymundo, PT [address] [place] [address] LETTER OF MEDICAL NECESSITY FOR A WHEELCHAIR [...] filedocumented in this encounter Care Teams Travel Registered Nurse Nicu Relationship Specialty Start Date End Date Franklin Squires MD 100 [facility] [address] [place] [address] PCP - General Family Practice 03/08/16 documented as of this encounter
--- OUTSIDE RECORDS SUMMARY | 2024-08-24 13:08 | XMS_ITS | Encounter Summary ---
Author Organization [facility] Address [address] [address] Care Team Providers Care Air Tube Releaser Name Role Phone Franklin Squires MD Primary Care Provider [phone] Encounter Details Date Type Department Care Team (Latest Contact Info) Description 06/04/2014 Correspondence [facility] 401 Interventional Pain Management 401 [facility] [place] [address] Zelalem Cohen, DO [address] [place] [address] MEDICAID PT INFORMATION EMPI RECOVERY Social History [...] filedocumented in this encounter Care Teams Air Tube Releaser Relationship Specialty Start Date End Date Franklin Squires MD 100 [facility] [place] [address] PCP - General Family Practice 03/08/16 documented as of this encounter
--- OUTSIDE RECORDS SUMMARY | 2024-08-24 13:08 | XMS_ITS | Encounter Summary ---
Author Organization [facility] Address [address] [address] Care Team Providers Care Architectural Sales Consultant Name Role Phone Franklin Squires MD Primary Care Provider Encounter Details Date Type Department Care Team (Late st Contact Info) Description 03/11/2014 Correspondence [facility] 401 Interventional Pain Management 401 [place] [address] Zelalem Cohen, DO [address] [place] [address] EMPI Social History Tobacco Use Types Packs/Day [...] filedocumented in this encounter Care Teams Architectural Sales Consultant Relationship Specialty Start Date End Date Franklin Squires MD 100 [facility] [place] [address] PCP - General Family Practice 03/08/16 documented as of this encounter
--- OUTSIDE RECORDS SUMMARY | 2024-08-24 13:08 | XMS_ITS | Encounter Summary ---
Author Organization [facility] Address [address] [address] Care Team Providers Care Library Circulation Technician Name Role Phone Franklin Squires MD Primary Care Provider Encounter Details Date Type Department Care Team (Late st Contact Info) Description 04/24/2012 Correspondence [facility] Radiology [address] [place] [address] Radiology, Provider MRI SAFETY SHEET AND COMPATIBILITY [...] on filedocumented in this encounter Care Teams Library Circulation Technician Relationship Specialty Start Date End Date Franklin Squires MD 100 [facility] [place] [address] PCP - General Family Practice 03/08/16 documented as of this encounter
--- OUTSIDE RECORDS SUMMARY | 2024-08-24 13:08 | XMS_ITS | Encounter Summary ---
Author Organization [facility] Address [address], [place] [address] Care Team Providers Care Booster Pump Oiler Name Role Phone Franklin Squires MD Primary Care Provider Encounter Details Date Type Department Care Team (Late st Contact Info) Description 12/16/2013 Correspondence [facility] Radiology [address] [place] [address] Radiology, Provider MRI SAFETY SHEET AND COMPATIBILITY [...] Radiology, Provider - 12/16/2013 12:00 AM CST AVER OPTICAL FRAMES documented in this encounter Plan of Treatment Not on file documented as of this encounter Visit Diagnoses Not on filedocumented in this encounter Care Teams Booster Pump Oiler Relationship Specialty Start Date End Date Franklin Squires MD 100 [facility] [place] [address] PCP - General Family Practice 03/08/16 documented as of this encounter
--- OUTSIDE RECORDS SUMMARY | 2024-08-24 13:08 | XMS_ITS | Encounter Summary ---
Author Organization [facility] Address [address], [place] [address] Care Team Providers Care Woodworking Shop Hand Name Role Phone Franklin Squires MD Primary Care Provider [phone] Encounter Details Date Type Department Care Team (Late st Contact Info) Description 09/17/2013 Correspondence External to External, [place] [address] EMPOWERMENT RULES Social History Tobacco Use Types [...] External, Provider - 09/17/2013 12:00 AM CST ENVIRONMENT SAFETY INSPECTOR documented in this encounter Plan of Treatment Not on file documented as of this encounter Visit Diagnoses Not on filedocumented in this encounter Care Teams Woodworking Shop Hand Relationship Specialty Start Date End Date Franklin Squires MD [address] [place] [address] [place] [address] PCP - General Family Practice 03/08/16 documented as of this encounter
--- OUTSIDE RECORDS SUMMARY | 2024-08-24 13:08 | XMS_ITS | Encounter Summary ---
Author Organization [facility] Address [address], [place] [address] Care Team Providers Care Edge Inker Uppers Name Role Phone Franklin Squires MD Primary Care Provider [phone] Encounter Details Date Type Department Care Team (Late st Contact Info) Description 06/11/2014 Correspondence [facility] 401 Physical Medicine 401 [facility] [place] [address] May Randle MD [address] [place] [address] [facility] Social History Tobacco Use Types [...] on filedocumented in this encounter Care Teams Edge Inker Uppers Relationship Specialty Start Date End Date Franklin Squires MD 100 [facility] [place] [address] PCP - General Family Practice 03/08/16 documented as of this encounter
--- OUTSIDE RECORDS SUMMARY | 2024-08-24 13:08 | XMS_ITS | Encounter Summary ---
Author Organization [facility] Address [address], [place] [address] Care Team Providers Care Airways Control Specialist Name Role Phone Franklin Squires MD Primary Care Provider [phone] Encounter Details Date Type Department Care Team [...] on filedocumented in this encounter Care Teams Airways Control Specialist Relationship Specialty Start Date End Date Franklin Squires MD 100 [facility] [place] [address] PCP - General Family Practice 03/08/16 documented as of this encounter
== END 2024-08-24 12:44 | disposition home or self-care (01) ==
LOC: WOUND 12:43
PROVIDERS: PCP Family Medicine; Visit Provider Nurse Practitioner Family
DX: M86.68 Other chronic osteomyelitis, other site (principal); L89.324 Pressure ulcer of left buttock, stage 4; G82.50 Quadriplegia, unspecified; Z99.3 Dependence on wheelchair
CPT/HCPCS: 97597

== ENCOUNTER 2024-08-31 12:47 | Outpatient (CLI) | payer MEDICARE, OTHER, SELFPAY ==
--- OUTSIDE RECORDS SUMMARY | 2024-08-31 12:49 | XMS_ITS | Continuity of Care Document ---
Author Name [facility] Organization [facility] Care Team Providers Care Commercial Instructor Supervisor Name Role Phone [facility] Unavailable Unavailable Problems Combined list of problems from 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 It does not include entries that were removed or entered in error. Problem Status Onset Date Problem Type Date of Resolution Comments Source Abnormal liver function Active Condition [facility] Anemia (SCT 819478979) Active Condition [facility] Anxiety ([facility] 07907687) Active Condition [facility] Autonomic dysreflexia Active Condition [facility] Chronic Pain Syndrome (SCT 904860627) Active Condition [facility] Colostomy present Active Condition [facility] Constipation ([facility]CT 42750649) Active Condition [facility] Continuous opioid dependence Active Condition [facility] COPD - Chronic Obstructive Pulmonary Disease (SCT 40578857) Active Condition [facility] Dementia Active Condition [facility] Depression (SCT 24310035) Active Condition [facility] Diabetes Mellitus Type 2 (SCT 78369791) Active Condition [facility] Ependymoma of spinal cord Active Condition [facility] Hearing Loss (SCT 65516748) Active Condition [facility] History of Deep Vein Thrombosis (SCT 576777938) Active Condition [facility] History of pressure injury Active Condition [facility] HTN - Hypertension (SCT 11405202) Active Condition [facility] Hyperlipidemia (SCT 08388696) Active Condition [facility] Hyponatremia Active [facility] Long-term current use of anticoagulant Active Condition [facility] Neurogenic Bladder (SCT 547544284) Active Condition [facility] Neurogenic bowel Active Condition [facility] Osteoporosis ([facility] 88031529) Active Condition [facility] Paraplegia Active Condition [facility] Spasticity Active Condition [facility] Suprapubic urinary catheter in situ Active Condition [facility] Supraventricular tachycardia Active Condition [facility] Tinnitus ([facility] 50293150) Active Condition [facility] Vitamin D Deficiency ([facility] 7539198) Active Condition [facility] Diagnosis: ICD-10-CM Z73.6 Limitation of activities due to disability Active Diagnosis [facility] Diagnosis: ICD-10-CM G82.20 Paraplegia, unspecified Active Diagnosis [facility] Medications Combined list of outpatient medications from Department of Defense and [facility] Affairs facilities.Medications provided include 1) outpatient medications from the last 15 months, and 2) patient-reported medications. Medication Details Route Status Patient Instructions Prescription Expires Prescription Number Last Dispense Date Ordering Provider Order Date Order Qty Source ACETAMINOPH EN 500MG TAB TAKE TWO TABLETS BY MOUTH THREE TIMES A DAY NEEDED ORAL ACTIVE Jagdish BARRETT N 2022 [facility] AMLODIPINE BESYLATE (AMLODIPINE BESYLATE), 5 MG, TABLET, ORAL, [employer] 1000 ea. BOTTLE Active [id number] 4 2023 90 Pharmac y Data Transac tion Service Facilit y AMLODIPINE BESYLATE (amlodipine besylate), 5 MG, TABLET, ORAL, [employer], 1000 ea. BOTTLE Active [id number] 4 2023 90 Pharmac y Data Transac tion Service Facilit y AMLODIPINE BESYLATE 2.5MG TAB TAKE TWO TABLETS BY MOUTH EVERY MORNING ORAL ACTIVE Jagdish BARRETT 2022 [facility] AMOX TR-POTASSIU M CLAVULANATE (AMOXICILLI N/POTASSIUM CLAV), 875-125 MG, TABLET, ORAL, [employer], 20 ea. BOTTLE Active [id number] 2022 14 Pharmac y Data Transac tion Service Facilit y AMOXICILLIN -CLAVULANAT E POTASS (amoxicilli n/potassium clavulanate ), 875-125 MG, TABLET, ORAL, [employer],, 20 ea. BOTTLE Active [id number] 2023 20 Pharmac y Data Transac tion Service Facilit y AMOXICILLIN -CLAVULANAT E POTASS (amoxicilli n/potassium clavulanate ), 875-125 MG, TABLET, ORAL, [employer] [facility],, 20 ea. BOTTLE Active [id number] 2023 56 Pharmac y Data Transac tion Service Facilit y ARIPIPRAZOL E (aripiprazo le), 2 MG, TABLET, ORAL, [employer], 500 ea. BOTTLE Active [id number] 2023 180 Pharmac y Data Transac tion Service Facilit y ARIPIPRAZOL E (aripiprazo le), 2 MG, TABLET, ORAL, [employer], 500 ea. BOTTLE Active [id number] 2023 180 Pharmac y Data Transac tion Service Facilit y ARIPIPRAZOL E TAB TAKE 2MG BY MOUTH TWICE A DAY ORAL ACTIVE Jey HANSON TAZEvelyn Clemente 2021 [facility] ATIVAN (LORAZEPAM) , 0.5 MG, TABLET, ORAL, VALEANT, 100 ea. BOTTLE Active [id number] 2023 120 Pharmac y Data Transac tion Service Facilit y ATORVASTATI N CA 80MG TAB TAKE ONE-HALF TABLET BY MOUTH EVERY DAY ORAL ACTIVE Jey HANSON Bryn 2021 [facility] ATORVASTATI N CALCIUM (atorvastat in calcium), 40 MG, TABLET, ORAL, BIOCON PHARMA I, 1000 ea. BOTTLE Active [id number] 2023 90 Pharmac y Data Transac tion Service Facilit y ATORVASTATI N CALCIUM (atorvastat in calcium), 40 MG, TABLET, ORAL, BIOCON PHARMA I, 1000 ea. BOTTLE Active [id number] 2023 90 Pharmac y Data Transac [...] ORAL, PAVEL PHARMACEU, 60 ea. BOTTLE Active [id number] 2023 180 Pharmac y Data Transac tion Service Facilit y BUPROPION HCL SR (bupropion HCl), 150 MG, TAB SR 12H, ORAL, PAVEL PHARMACEU, 60 ea. BOTTLE Active [id number] 2023 180 Pharmac y Data Transac [...] ORAL, AUROBINDO PHARM, 50 ea. BOTTLE Active [id number] 2023 70 Pharmac y Data Transac tion Service Facilit y DONEPEZIL HCL (DONEPEZIL HCL), 5 MG, TABLET, ORAL, [employer] 1000 ea. BOTTLE Active [id number] 2023 90 Pharmac y Data Transac tion Service Facilit y DONEPEZIL HCL (DONEPEZIL HCL), 5 MG, TABLET, ORAL, [employer] 1000 ea. BOTTLE Cancele d [id number] : 2023 0 Pharmac y Data Transac tion Service Facilit y DONEPEZIL HCL (DONEPEZIL HCL), 5 MG, TABLET, ORAL, [employer] 1000 ea. BOTTLE Active [id number] 2023 90 Pharmac y Data Transac tion Service Facilit y DONEPEZIL HCL 10MG TAB TAKE ONE-HALF TABLET BY MOUTH EVERY DAY ORAL ACTIVE Jey HANSON Bryn 2021 [facility] DULOXETINE HCL (duloxetine HCl), 60 MG, CAPSULE DR, ORAL, [employer] 1000 ea. BOTTLE Active [id number] 2023 180 Pharmac y Data Transac tion Service Facilit y DULOXETINE HCL (duloxetine HCl), 60 MG, CAPSULE DR, ORAL, [employer] 1000 ea. BOTTLE Active [id number] 2023 180 Pharmac y Data Transac tion Service Facilit y DULOXETINE HCL 30MG CAP,EC TAKE 2 CAPSULES BY MOUTH TWICE A DAY ORAL ACTIVE GRANDJey PRADHAN M 2021 [facility] FAMOTIDINE (famotidine ), 20 MG, TABLET, ORAL, [employer] 1000 ea. BOTTLE Active [id number] 2023 180 Pharmac y Data Transac tion Service Facilit y FAMOTIDINE 20MG TAB TAKE ONE TABLET BY MOUTH TWICE A DAY ORAL ACTIVE GRANDIA,C ONALAINAE M 2021 [facility] FUROSEMIDE (furosemide ), 40 MG, TABLET, ORAL, [employer], 1000 ea. BOTTLE Active [id number] 2023 180 Pharmac y Data Transac tion Service Facilit y FUROSEMIDE 40MG TAB TAKE ONE TABLET BY MOUTH TWICE A DAY ORAL ACTIVE MARGIE,C SB M 2021 [facility] GABAPENTIN (gabapentin ), 400 MG, CAPSULE, ORAL, [employer] 500 ea. BOTTLE Active [id number] 2023 270 Pharmac y Data Transac tion Service Facilit y GABAPENTIN (gabapentin ), 400 MG, CAPSULE, ORAL, [employer]ARMAC, 500 ea. BOTTLE Active [id number] 2023 270 Pharmac y Data Transac tion Service Facilit y GABAPENTIN (gabapentin ), 400 MG, CAPSULE, ORAL, [employer], 500 ea. BOTTLE Cancele d [id number] : 2023 0 Pharmac y Data Transac tion Service Facilit y GABAPENTIN 400MG CAP TAKE 1 CAPSULE BY MOUTH THREE TIMES A DAY ORAL ACTIVE GRANDIAJeyE M 2021 [facility] LORAZEPAM (lorazepam) , 0.5 MG, TABLET, ORAL, [employer]ARM, 500 ea. BOTTLE Active [id number] 2023 120 Pharmac y Data Transac tion Service Facilit y LORAZEPAM (lorazepam) , 0.5 MG, TABLET, ORAL, LEADING [employer]ARMA, 1000 ea. BOTTLE Active [id number] 2023 120 Pharmac y Data Transac tion Service Facilit y LORAZEPAM (lorazepam) , 0.5 MG, TABLET, ORAL, [employer]ING PHARMA, 1000 ea. BOTTLE Active [id number] 2023 120 Pharmac y Data Transac tion Service Facilit y LORAZEPAM (lorazepam) , 0.5 MG, TABLET, ORAL, [employer]ARMA, 1000 ea. BOTTLE Active [id number] 2023 120 Pharmac y Data Transac tion Service Facilit y LORAZEPAM (lorazepam) , 0.5 MG, TABLET, ORAL, LE[employer]ING PHARMA, 500 ea. BOTTLE Active [id number] 2023 120 Pharmac y Data Transac tion Service Facilit y LORAZEPAM 0.5MG TAB TAKE ONE TABLET BY MOUTH THREE TIMES A DAY AND TAKE TWO TABLETS BY MOUTH AT BEDTIME ORAL ACTIVE Jagdish BARRETT 2022 [facility] MILK OF MAGNESIA TAKE 30ML BY MOUTH EVERY DAY NEEDED ORAL ACTIVE GRANDIA,C TAZE M 2021 [facility] MULTIVITAMI NS CAP/TAB TAKE ONE TABLET BY MOUTH EVERY DAY ORAL ACTIVE GRANDIA,C SB M 2021 [facility] NALOXONE HCL 4MG/SPRAY SOLN,SPRAY, NASAL SPRAY 1 DOSE IN ONE NOSTRIL DIRECTED PRN NASAL ACTIVE Jagdish BARRETT N 2022 [facility] OXYCODONE HCL (OXYCODONE HCL), 10 MG, TABLET, ORAL, [employer] 100 ea. BOTTLE Active [id number] 2023 120 Pharmac y Data Transac tion Service Facilit y OXYCODONE HCL (OXYCODONE HCL), 10 MG, TABLET, ORAL, [employer] 100 ea. BOTTLE Active [id number] 2023 120 Pharmac y Data Transac tion Service Facilit y OXYCODONE HCL (OXYCODONE HCL), 10 MG, TABLET, ORAL, [employer] 100 ea. BOTTLE Active [id number] 2023 120 Pharmac y Data Transac tion Service Facilit y OXYCODONE HCL (OXYCODONE HCL), 10 MG, TABLET, ORAL, [employer] 100 ea. BOTTLE Active [id number] 2023 120 Pharmac y Data Transac tion Service Facilit y OXYCODONE HCL (OXYCODONE HCL), 10 MG, TABLET, ORAL, [employer] 100 ea. BOTTLE Active [id number] 2023 120 Pharmac y Data Transac tion Service Facilit y OXYCODONE HCL (OXYCODONE HCL), 10 MG, TABLET, ORAL, [employer] 100 ea. BOTTLE Active [id number] 2023 120 Pharmac y Data Transac tion Service Facilit y OXYCODONE HCL (OXYCODONE HCL), 10 MG, TABLET, ORAL, [employer] 100 ea. BOTTLE Active [id number] 2022 120 Pharmac y Data Transac tion Service Facilit y OXYCODONE HCL 5MG TAB TAKE TWO TABLETS BY MOUTH FOUR TIMES A DAY ORAL ACTIVE Jagdish BARRETT 2022 [facility] POTASSIUM CHLORIDE (potassium chloride), 10 MEQ, TAB ER PRT, ORAL, [employer], 100 ea. BOTTLE Active [id number] 2023 180 Pharmac y Data Transac tion Service Facilit y POTASSIUM CHLORIDE (potassium chloride), 10 MEQ, TAB ER PRT, ORAL, [employer], 100 ea. BOTTLE Active [id number] 2023 180 Pharmac y Data Transac tion Service Facilit y POTASSIUM CHLORIDE (potassium chloride), 20 MEQ, TAB ER PRT, ORAL, [employer], 100 ea. BOTTLE Active [id number] 2023 90 Pharmac y Data Transac tion Service Facilit y POTASSIUM CHLORIDE 20MEQ TAB,SA (DISPERSIBL E) TAKE ONE TABLET BY MOUTH TWICE A DAY ORAL ACTIVE Jey HANOSN 2021 [facility] SANTYL (collagenas e Clostridium histolyticu m), 250 UNIT/G, OINT. (G), TOPICAL, WHITLOCK&N/UNI LUIS, 30 g TUBE Cancele d [id number] : 2023 0 Pharmac y Data Transac tion Service Facilit y WARFARIN SODIUM (warfarin sodium), 5 MG, TABLET, ORAL, [employer] 1000 ea. BOTTLE Cancele d [id number] : 2022 0 Pharmac y Data Transac tion Service Facilit y WARFARIN SODIUM (WARFARIN SODIUM), 5 MG, TABLET, ORAL, [employer], 1000 ea. BOTTLE Active [id number] 2023 25 Pharmac y Data Transac tion Service Facilit y WARFARIN SODIUM (WARFARIN SODIUM), 5 MG, TABLET, ORAL, [employer], 1000 ea. BOTTLE Active [id number] 2023 12 Pharmac y Data Transac tion Service Facilit y WARFARIN SODIUM (WARFARIN SODIUM), 5 MG, TABLET, ORAL, [employer], 1000 ea. BOTTLE Active [id number] 2023 40 Pharmac y Data Transac tion Service Facilit y WARFARIN SODIUM (WARFARIN SODIUM), 5 MG, TABLET, ORAL, [employer], 1000 ea. BOTTLE Cancele d [id number] : 2022 0 Pharmac y Data Transac tion Service Facilit y WARFARIN SODIUM (warfarin sodium), 7.5 MG, TABLET, ORAL, [employer], 100 ea. BOTTLE Active [id number] 2023 51 Pharmac y Data Transac tion Service Facilit y WARFARIN SODIUM (warfarin sodium), 7.5 MG, TABLET, ORAL, [employer], 100 ea. BOTTLE Active [id number] 2023 78 Pharmac y Data Transac tion Service Facilit y WARFARIN TAB TAKE 5MG BY MOUTH SUN/THUR S AND TAKE 7.5MG BY MOUTH ALL OTHER DAYS ORAL ACTIVE Jagdish BARRETT 2022 [facility] Allergies, Adverse Reactions, Alerts Combined list of allergies from Department [facility] and [facility] facilities. It does not include entries that were removed or entered in error. Substance Category Reaction Severity Reaction type Status Date Reported Comments Source AMOXICILLIN Propensity to adverse reactions to drug (finding) [facility]ruption [facility] METOLAZONE Propensity to adverse reactions to drug (finding) Itching active 2 [facility] IS [facility] MORPHINE Propensity to adverse reactions to drug (finding) Delirium active 2 [facility] IS [facility] PIPERACILLIN Propensity to adverse reactions to drug (finding) Eruption active 2 [facility] IS [facility] SULFA DRUGS Propensity to adverse reactions to drug (finding) Eruption active 2 [facility] IS [facility] TAZOBACTAM SODIUM Propensity to adverse reactions to drug (finding) Eruption active 2 [facility] IS [facility] Immunizations Combined list of available immunizations from the Department of [facility] and [facility] facilities. 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 Comments Source COVID-19 ([employer]), MRNA, LNP-S, BIVALENT, PF, 30 MCG/0.3 ML DOSE 2021 300 complet ed [facility] INFLUENZA, ADJUVANTED, QUADRIVALENT, PF 2021 205 complet ed [facility] INFLUENZA, UNSPECIFIED FORMULATION 2021 88 complet ed [employer] [place] recall [facility] TD (ADULT), 5 LF TETANUS TOXOID, PRESERVATIVE FREE, ADSORBED 2021 113 complet ed [facility] INFLUENZA, ADJUVANTED, QUADRIVALENT, PF 2020 205 complet ed [facility] INFLUENZA, UNSPECIFIED FORMULATION 2020 88 complet ed [facility] COVID-19 ([employer]), MRNA, LNP-S, PF, 30 MCG/0.3 ML DOSE 3 2020 208 complet ed [facility] COVID-19 (PFIZER), MRNA, LNP-S, PF, 30 MCG/0.3 ML DOSE 2 2020 208 complet ed [facility] COVID-19 ([employer]), MRNA, LNP-S, PF, 30 MCG/0.3 ML DOSE [...] ed [facility] INFLUENZA, HIGH-DOSE, TRIVALENT, PF 2014 135 complet ed [facility] INFLUENZA, HIGH-DOSE, TRIVALENT, PF 2013 135 complet ed [facility] INFLUENZA, UNSPECIFIED FORMULATION 2013 88 complet ed [facility] INFLUENZA, SPLIT VIRUS, TRIVALENT, PRESERVATIVE 2012 141 complet ed [facility] ZOSTER LIVE [address] [facility] INFLUENZA, SPLIT VIRUS, TRIVALENT, PRESERVATIVE 2011 141 complet ed [facility] INFLUENZA, SPLIT VIRUS, TRIVALENT, PF 2010 140 complet ed [facility] PNEUMOCOCCAL POLYSACCHARID E PPV23 2010 33 complet ed [facility] TDAP [address] [facility] INFLUENZA, SPLIT VIRUS, TRIVALENT, PRESERVATIVE 2009 141 complet ed [facility] NOVEL INFLUENZA-H1N 1-09, ALL FORMULATIONS 2009 [...] PM Reporting Lab: [facility] [address] Performing Lab: [facility] [address] [facility] CYSTATIN C WITH EGFR CYSTATIN C AND GLOMERULAR FILTRATION RATE BY CYSTATIN C-BASED FORMULA PANEL - SERUM OR PLASMA 53 60 02/13 L Specimen Type: PLASMA No comment entered. Ordering Provider: ANKUSH BOWMAN Report Released Date/Time: Feb 05, 2023 03:10 PM Reporting Lab: [facility] [address] Performing Lab: [facility] [address] [facility] IS [facility] BASIC METABOLI C PANEL+MG CREATININE [MASS/VOLU ME] IN SERUM OR PLASMA 0.7 mg/dL 0.7 - 1.2 02/13 Specimen Type: PLASMA No comment entered. Ordering Provider: ANKUSH BOWMAN Report Released Date/Time: Feb 05, 2023 03:10 PM Reporting Lab: [facility] [address] Performing Lab: [facility] [address] [place] [facility] BASIC METABOLI C PANEL+MG UREA NITROGEN [MASS/VOLU ME] IN SERUM OR PLASMA 15 mg/dL 8 - 26 02/13 Specimen Type: PLASMA No comment entered. Ordering Provider: ANKUSH BOWMAN Report Released Date/Time: Feb 05, 2023 03:10 PM Reporting Lab: [facility] [address] Performing Lab: [facility] [address] [place] [facility] BASIC METABOLI C PANEL+MG GLUCOSE [MASS/VOLU ME] IN SERUM OR PLASMA 140 mg/dL 70 - 100 02/13 H Specimen Type: PLASMA No comment entered. Ordering Provider: ANKUSH BOWMAN Report Released Date/Time: Feb 05, 2023 03:10 PM Reporting Lab: [facility] [address] Performing Lab: [facility] [address] [place] [facility] BASIC METABOLI C PANEL+MG SODIUM [MOLES/VOL UME] IN SERUM OR PLASMA 135 mmol/L 136 - 145 02/13 L Specimen Type: PLASMA No comment entered. Ordering Provider: ANKUSH BOWMAN Report Released Date/Time: Feb 05, 2023 03:10 PM Reporting Lab: [facility] [address] Performing Lab: [facility] [address] [place] [facility] BASIC METABOLI C PANEL+MG POTASSIUM [MOLES/VOL UME] IN SERUM OR PLASMA 4.0 mmol/L 3.5 - 5.1 02/13 Specimen Type: PLASMA No comment entered. Ordering Provider: ANKUSH BOWMAN Report Released Date/Time: Feb 05, 2023 03:10 PM Reporting Lab: [facility] [address] Performing Lab: [facility] [address] [place] [facility] BASIC METABOLI C PANEL+MG CHLORIDE [MOLES/VOL UME] IN SERUM OR PLASMA 99 mmol/L 98 - 107 02/13 Specimen Type: PLASMA No comment entered. Ordering Provider: ANKUSH BOWMAN Report Released Date/Time: Feb 05, 2023 03:10 PM Reporting Lab: [facility] [address] Performing Lab: [facility] [address] [place] [facility] BASIC METABOLI C PANEL+MG CARBON DIOXIDE, TOTAL [MOLES/VOL UME] IN SERUM OR PLASMA 29 mmol/L 22 - 29 02/13 Specimen Type: PLASMA No comment entered. Ordering Provider: ANKUSH BOWMAN Report Released Date/Time: Feb 05, 2023 03:10 PM Reporting Lab: [facility] [address] Performing Lab: [facility] [address] [place] [facility] BASIC METABOLI C PANEL+MG CALCIUM [MASS/VOLU ME] IN SERUM OR PLASMA 9.2 mg/dL 8.4 - 10.2 02/13 Specimen Type: PLASMA No comment entered. Ordering Provider: ANKUSH BOWMAN Report Released Date/Time: Feb 05, 2023 03:10 PM Reporting Lab: [facility] [address] Performing Lab: [facility] [address] [place] [facility] BASIC METABOLI C PANEL+MG MAGNESIUM [MASS/VOLU ME] IN SERUM OR PLASMA 2.0 mg/dL 1.6 - 2.6 02/13 Specimen Type: PLASMA No comment entered. Ordering Provider: ANKUSH BOWMAN Report Released Date/Time: Feb 05, 2023 03:10 PM Reporting Lab: [facility] [address] Performing Lab: [facility] [address] [place] [facility] BASIC METABOLI C PANEL+MG ANION GAP IN SERUM OR PLASMA 7 mmol/L 5 - 15 02/13 Specimen Type: PLASMA No comment entered. Ordering Provider: ANKUSH BOWMAN Report Released Date/Time: Feb 05, 2023 03:10 PM Reporting Lab: [facility] [address] Performing Lab: [facility] [address] [place] [facility] BASIC METABOLI C PANEL+MG GLOMERULAR FILTRATION RATE/1.73 SQ M.PREDICTE D [VOLUME RATE/AREA] IN SERUM, PLASMA OR BLOOD BY CREATININE -BASED FORMULA (CKD-EPI) >90 60 02/13 Specimen Type: PLASMA No comment entered. Ordering Provider: ANKUSH BOWMAN Report Released Date/Time: Feb 05, 2023 03:10 PM Reporting Lab: [facility] [address] Performing Lab: [facility] [address] [place] [facility] URINALYS IS COLOR OF URINE YELLOW 10/08 Specimen Type: URINE No comment entered. Ordering Provider: ANKUSH BOWMAN Report Released Date/Time: Sep 24, 2022 01:55 PM Reporting Lab: [facility] [address] Performing Lab: [facility] [address] [place] [facility] URINALYS IS SPECIFIC GRAVITY OF URINE 1.023 1.003 - 1.035 10/08 Specimen Type: URINE No comment entered. Ordering Provider: ANKUSH BOWMAN Report Released Date/Time: Sep 24, 2022 01:55 PM Reporting Lab: [facility] [address] Performing Lab: [facility] [address] [place] [facility] URINALYS IS BILIRUBIN. TOTAL [PRESENCE] IN URINE BY TEST STRIP NEGATIVE 10/08 Specimen Type: URINE No comment entered. Ordering Provider: ANKUSH BOWMAN Report Released Date/Time: Sep 24, 2022 01:55 PM Reporting Lab: [facility] [address] Performing Lab: [facility] [address] [place] [facility] URINALYS IS KETONES [MASS/VOLU ME] IN URINE BY TEST STRIP NEGATIVE 10/08 Specimen Type: URINE No comment entered. Ordering Provider: ANKUSH BOWMAN Report Released Date/Time: Sep 24, 2022 01:55 PM Reporting Lab: [facility] [address] Performing Lab: [facility] [address] [place] [facility] URINALYS IS GLUCOSE [MASS/VOLU ME] IN URINE BY TEST STRIP NEGATIVE mg/dL <30 - 30 10/08 Specimen Type: URINE No comment entered. Ordering Provider: ANKUSH BOWMAN Report Released Date/Time: Sep 24, 2022 01:55 PM Reporting Lab: [facility] [address] Performing Lab: [facility] [address] [place] [facility] URINALYS IS PROTEIN [MASS/VOLU ME] IN URINE BY TEST STRIP 30 mg/dL <20 - 20 10/08 Specimen Type: URINE No comment entered. Ordering Provider: ANKUSH BOWMAN Report Released Date/Time: Sep 24, 2022 01:55 PM Reporting Lab: [facility] [address] Performing Lab: [facility] [address] [place] [facility] URINALYS IS PH OF URINE BY TEST STRIP 7.5 5.0 - 8.0 10/08 Specimen Type: URINE No comment entered. Ordering Provider: ANKUSH BOWMAN Report Released Date/Time: Sep 24, 2022 01:55 PM Reporting Lab: [facility] [address] Performing Lab: [facility] [address] [place] [facility] URINALYS IS LEUKOCYTES [#/AREA] IN URINE SEDIMENT BY MICROSCOPY HIGH POWER FIELD >180/[HP F] 0 - 7 10/08 H Specimen Type: URINE No comment entered. Ordering Provider: ANKUSH BOWMAN Report Released Date/Time: Sep 24, 2022 01:55 PM Reporting Lab: [facility] [address] Performing Lab: [facility] [address] [place] [facility] URINALYS IS BACTERIA [PRESENCE] IN URINE SEDIMENT BY LIGHT MICROSCOPY MANY 10/08 Specimen Type: URINE No comment entered. Ordering Provider: ANKUSH BOWMAN Report Released Date/Time: Sep 24, 2022 01:55 PM Reporting Lab: [facility] [address] Performing Lab: [facility] [address] [place] [facility] URINALYS IS ERYTHROCYT ES [#/AREA] IN URINE SEDIMENT BY MICROSCOPY HIGH POWER FIELD 33 /[HPF] 0 - 3 10/08 H Specimen Type: URINE No comment entered. Ordering Provider: ANKUSH BOWMAN Report Released Date/Time: Sep 24, 2022 01:55 PM Reporting Lab: [facility] [id number] Performing Lab: [facility] [id number] [place] [facility] URINALYS IS APPEARANCE OF URINE EX.TURBI D 10/08 Specimen Type: URINE No comment entered. Ordering Provider: ANKUSH BOWMAN Report Released Date/Time: Sep 24, 2022 01:55 PM Reporting Lab: [facility] [address] Performing Lab: [facility] [address] [place] [facility] URINALYS IS EPITHELIAL CELLS.SQUA MOUS [#/AREA] IN URINE SEDIMENT BY MICROSCOPY HIGH POWER FIELD 1 /[HPF] 10/08 Specimen Type: URINE No comment entered. Ordering Provider: ANKUSH BOWMAN Report Released Date/Time: Sep 24, 2022 01:55 PM Reporting Lab: [facility] [address] Performing Lab: [facility] [address] [place] [facility] URINALYS IS HEMOGLOBIN [PRESENCE] IN URINE BY TEST STRIP 1+ 10/08 Specimen Type: URINE No comment entered. Ordering Provider: ANKUSH BOWMAN Report Released Date/Time: Sep 24, 2022 01:55 PM Reporting Lab: [facility] [address] Performing Lab: [facility] [address] [place] [facility] URINALYS IS NITRITE [PRESENCE] IN URINE BY TEST STRIP NEGATIVE 10/08 Specimen Type: URINE No comment entered. Ordering Provider: ANKUSH BOWMAN Report Released Date/Time: Sep 24, 2022 01:55 PM Reporting Lab: [facility] [address] Performing Lab: [facility] [address] [place] [facility] URINALYS IS LEUKOCYTE CLUMPS [#/VOLUME] IN URINE BY AUTOMATED COUNT PRESENT 10/08 Specimen Type: URINE No comment entered. Ordering Provider: ANKUSH BOWMAN Report Released Date/Time: Sep 24, 2022 01:55 PM Reporting Lab: [facility] [address] Performing Lab: [facility] [address] [place] [facility] URINALYS IS LEUKOCYTE ESTERASE [PRESENCE] IN URINE BY TEST STRIP 500 10/08 Specimen Type: URINE No comment entered. Ordering Provider: ANKUSH BOWMAN Report Released Date/Time: Sep 24, 2022 01:55 PM Reporting Lab: [facility] [address] Performing Lab: [facility] [address] [place] [facility] ALBUMIN ALBUMIN [MASS/VOLU ME] IN SERUM OR PLASMA 4.2 g/dL 3.5 - 5.2 10/08 Specimen Type: PLASMA No comment entered. Ordering Provider: ANKUSH BOWMAN Report Released Date/Time: Sep 24, 2022 01:55 PM Reporting Lab: [facility] [address] Performing Lab: [facility] [address] [place] [facility] PRE-ALBU MIN PREALBUMIN [MASS/VOLU ME] IN SERUM OR PLASMA 28.4 mg/dL 14.0 - 45.0 10/08 Specimen Type: SERUM No comment entered. Ordering Provider: ANKUSH BOWMAN Report Released Date/Time: Sep 24, 2022 01:55 PM Reporting Lab: [facility] [address] Performing Lab: [facility] [address] [place] [facility] COMPREHE NSIVE METABOLI C PANEL+MG CREATININE [MASS/VOLU ME] IN SERUM OR PLASMA 0.7 mg/dL 0.7 - 1.2 10/08 Specimen Type: PLASMA No comment entered. Ordering Provider: ANKUSH BOWMAN Report Released Date/Time: Sep 24, 2022 01:55 PM Reporting Lab: [facility] [address] Performing Lab: [facility] [address] [place] [facility] COMPREHE NSIVE METABOLI C PANEL+MG UREA NITROGEN [MASS/VOLU ME] IN SERUM OR PLASMA 16 mg/dL 8 - 26 10/08 Specimen Type: PLASMA No comment entered. Ordering Provider: ANKUSH BOWMAN Report Released Date/Time: Sep 24, 2022 01:55 PM Reporting Lab: [facility] [address] Performing Lab: [facility] [address] [place] [facility] COMPREHE NSIVE METABOLI C PANEL+MG GLUCOSE [MASS/VOLU ME] IN SERUM OR PLASMA 94 mg/dL 70 - 100 10/08 Specimen Type: PLASMA No comment entered. Ordering Provider: ANKUSH BOWMAN Report Released Date/Time: Sep 24, 2022 01:55 PM Reporting Lab: [facility] [address] Performing Lab: [facility] [address] [place] [facility] COMPREHE NSIVE METABOLI C PANEL+MG SODIUM [MOLES/VOL UME] IN SERUM OR PLASMA 138 mmol/L 136 - 145 10/08 Specimen Type: PLASMA No comment entered. Ordering Provider: ANKUSH BOWMAN Report Released Date/Time: Sep 24, 2022 01:55 PM Reporting Lab: [facility] [address] Performing Lab: [facility] [address] [place] [facility] COMPREHE NSIVE METABOLI C PANEL+MG POTASSIUM [MOLES/VOL UME] IN SERUM OR PLASMA 3.9 mmol/L 3.5 - 5.1 10/08 Specimen Type: PLASMA No comment entered. Ordering Provider: ANKUSH BOWMAN Report Released Date/Time: Sep 24, 2022 01:55 PM Reporting Lab: [facility] [address] Performing Lab: [facility] [address] [place] [facility] COMPREHE NSIVE METABOLI C PANEL+MG CHLORIDE [MOLES/VOL UME] IN SERUM OR PLASMA 101 mmol/L 98 - 107 10/08 Specimen Type: PLASMA No comment entered. Ordering Provider: ANKUSH BOWMAN Report Released Date/Time: Sep 24, 2022 01:55 PM Reporting Lab: [facility] [address] Performing Lab: [facility] [address] [place] [facility] COMPREHE NSIVE METABOLI C PANEL+MG CARBON DIOXIDE, TOTAL [MOLES/VOL UME] IN SERUM OR PLASMA 28 mmol/L 22 - 29 10/08 Specimen Type: PLASMA No comment entered. Ordering Provider: ANKUSH BOWMAN Report Released Date/Time: Sep 24, 2022 01:55 PM Reporting Lab: [facility] [address] Performing Lab: [facility] [address] [place] [facility] COMPREHE NSIVE METABOLI C PANEL+MG CALCIUM [MASS/VOLU ME] IN SERUM OR PLASMA 9.7 mg/dL 8.4 - 10.2 10/08 Specimen Type: PLASMA No comment entered. Ordering Provider: ANKUSH BOWMAN Report Released Date/Time: Sep 24, 2022 01:55 PM Reporting Lab: [facility] [address] Performing Lab: [facility] [address] [place] [facility] COMPREHE NSIVE METABOLI C PANEL+MG PROTEIN [MASS/VOLU ME] IN SERUM OR PLASMA 7.6 g/dL 6.0 - 8.3 10/08 Specimen Type: PLASMA No comment entered. Ordering Provider: ANKUSH BOWMAN Report Released Date/Time: Sep 24, 2022 01:55 PM Reporting Lab: [facility] [address] Performing Lab: [facility] [address] [place] [facility] COMPREHE NSIVE METABOLI C PANEL+MG ALBUMIN [MASS/VOLU ME] IN SERUM OR PLASMA 4.2 g/dL 3.5 - 5.2 10/08 Specimen Type: PLASMA No comment entered. Ordering Provider: ANKUSH BOWMAN Report Released Date/Time: Sep 24, 2022 01:55 PM Reporting Lab: [facility] [address] Performing Lab: [facility] [address] [place] [facility] COMPREHE NSIVE METABOLI C PANEL+MG BILIRUBIN. TOTAL [MASS/VOLU ME] IN SERUM OR PLASMA 0.6 mg/dL 0.2 - 1.2 10/08 Specimen Type: PLASMA No comment entered. Ordering Provider: ANKUSH BOWMAN Report Released Date/Time: Sep 24, 2022 01:55 PM Reporting Lab: [facility] [address] Performing Lab: [facility] [address] [place] [facility] COMPREHE NSIVE METABOLI C PANEL+MG MAGNESIUM [MASS/VOLU ME] IN SERUM OR PLASMA 2.1 mg/dL 1.6 - 2.6 10/08 Specimen Type: PLASMA No comment entered. Ordering Provider: ANKUSH BOWMAN Report Released Date/Time: Sep 24, 2022 01:55 PM Reporting Lab: [facility] [address] Performing Lab: [facility] [address] [place] [facility] COMPREHE NSIVE METABOLI C PANEL+MG ANION GAP IN SERUM OR PLASMA 9 mmol/L 5 - 15 10/08 Specimen Type: PLASMA No comment entered. Ordering Provider: ANKUSH BOWMAN Report Released Date/Time: Sep 24, 2022 01:55 PM Reporting Lab: [facility] [address] Performing Lab: [facility] [address] [place] [facility] COMPREHE NSIVE METABOLI C PANEL+MG ALKALINE PHOSPHATAS E [ENZYMATIC ACTIVITY/V OLUME] IN SERUM OR PLASMA 96 U/L 40 - 150 10/08 Specimen Type: PLASMA No comment entered. Ordering Provider: ANKUSH BOWMAN Report Released Date/Time: Sep 24, 2022 01:55 PM Reporting Lab: [facility] [address] Performing Lab: [facility] [address] [place] [facility] COMPREHE NSIVE METABOLI C PANEL+MG ALANINE AMINOTRANS FERASE [ENZYMATIC ACTIVITY/V OLUME] IN SERUM OR PLASMA 29 U/L <55 - 55 10/08 Specimen Type: PLASMA No comment entered. Ordering Provider: ANKUSH BOWMAN Report Released Date/Time: Sep 24, 2022 01:55 PM Reporting Lab: [facility] [address] Performing Lab: [facility] [address] [place] [facility] COMPREHE NSIVE METABOLI C PANEL+MG ASPARTATE AMINOTRANS FERASE [ENZYMATIC ACTIVITY/V OLUME] IN SERUM OR PLASMA 22 U/L <34 - 34 10/08 Specimen Type: PLASMA No comment entered. Ordering Provider: ANKUSH BOWMAN Report Released Date/Time: Sep 24, 2022 01:55 PM Reporting Lab: [facility] [address] Performing Lab: [facility] [address] [facility] COMPREHE NSIVE METABOLI C PANEL+MG GLOMERULAR FILTRATION RATE/1.73 SQ M.PREDICTE D [VOLUME RATE/AREA] IN SERUM, PLASMA OR BLOOD BY CREATININE -BASED FORMULA (CKD-EPI) >90 60 10/08 Specimen Type: PLASMA No comment entered. Ordering Provider: ANKUSH BOWMAN Report Released Date/Time: Sep 24, 2022 01:55 PM Reporting Lab: [facility] [address] Performing Lab: [facility] [address] [facility] CBC & DIFF LEUKOCYTES [#/VOLUME] IN BLOOD BY AUTOMATED COUNT 7.32 10*3/uL 4.0 - 11.0 10/08 Specimen Type: BLOOD Comment: Automated Differentia l Performed Ordering Provider: ANKUSH BOWMAN Report Released Date/Time: Sep 24, 2022 01:55 PM Reporting Lab: [facility] [address] Performing Lab: [facility] [address] [facility] CBC & DIFF ERYTHROCYT ES [#/VOLUME] IN BLOOD BY AUTOMATED COUNT 4.80 10*6/uL 4.6 - 6.2 10/08 Specimen Type: BLOOD Comment: Automated Differentia l Performed Ordering Provider: ANKUSH BOWMAN Report Released Date/Time: Sep 24, 2022 01:55 PM Reporting Lab: [facility] [address] Performing Lab: [facility] [address] [facility] CBC & DIFF HEMOGLOBIN [MASS/VOLU ME] IN BLOOD 14.7 g/dL 13.5 - 17.9 10/08 Specimen Type: BLOOD Comment: Automated Differentia l Performed Ordering Provider: ANKUSH BOWMAN Report Released Date/Time: Sep 24, 2022 01:55 PM Reporting Lab: [facility] [address] Performing Lab: [facility] [address] [place] [facility] CBC & DIFF HEMATOCRIT [VOLUME FRACTION] OF BLOOD BY AUTOMATED COUNT 44.2 41 - 54 10/08 Specimen Type: BLOOD Comment: Automated Differentia l Performed Ordering Provider: ANKUSH BOWMAN Report Released Date/Time: Sep 24, 2022 01:55 PM Reporting Lab: [facility] [address] Performing Lab: [facility] [address] [place] [facility] CBC & DIFF MCV [ENTITIC VOLUME] BY AUTOMATED COUNT 92.1 fL 80 - 100 10/08 Specimen Type: BLOOD Comment: Automated Differentia l Performed Ordering Provider: ANKUSH BOWMAN Report Released Date/Time: Sep 24, 2022 01:55 PM Reporting Lab: [facility] [address] Performing Lab: [facility] [address] [place] [facility] CBC & DIFF MCH [ENTITIC MASS] BY AUTOMATED COUNT 30.6 pg 27 - 33 10/08 Specimen Type: BLOOD Comment: Automated Differentia l Performed Ordering Provider: ANKUSH BOWMAN Report Released Date/Time: Sep 24, 2022 01:55 PM Reporting Lab: [facility] [address] Performing Lab: [facility] [address] [place] [facility] CBC & DIFF MCHC [MASS/VOLU ME] BY AUTOMATED COUNT 33.3 g/dL 32.0 - 37.5 10/08 Specimen Type: BLOOD Comment: Automated Differentia l Performed Ordering Provider: ANKUSH BOWMAN Report Released Date/Time: Sep 24, 2022 01:55 PM Reporting Lab: [facility] [address] Performing Lab: [facility] [address] [place] [facility] CBC & DIFF PLATELETS [#/VOLUME] IN BLOOD BY AUTOMATED COUNT 144 10*3/uL 150 - 400 10/08 L Specimen Type: BLOOD Comment: Automated Differentia l Performed Ordering Provider: ANKUSH BOWMAN Report Released Date/Time: Sep 24, 2022 01:55 PM Reporting Lab: [facility] [address] Performing Lab: [facility] [address] [place] [facility] CBC & DIFF PLATELET MEAN VOLUME [ENTITIC VOLUME] IN BLOOD BY AUTOMATED COUNT 10.8 fL 7.4 - 10.4 10/08 H Specimen Type: BLOOD Comment: Automated Differentia l Performed Ordering Provider: ANKUSH BOWMAN Report Released Date/Time: Sep 24, 2022 01:55 PM Reporting Lab: [facility] [address] Performing Lab: [facility] [address] [place] [facility] CBC & DIFF NEUTROPHIL S/100 LEUKOCYTES IN BLOOD BY MANUAL COUNT 55.5 10/08 Specimen Type: BLOOD Comment: Automated Differentia l Performed Ordering Provider: ANKUSH BOWMAN Report Released Date/Time: Sep 24, 2022 01:55 PM Reporting Lab: [facility] [address] Performing Lab: [facility] [address] [place] [facility] CBC & DIFF LYMPHOCYTE S/100 LEUKOCYTES IN BLOOD BY MANUAL COUNT 31.4 10/08 Specimen Type: BLOOD Comment: Automated Differentia l Performed Ordering Provider: ANKUSH BOWMAN Report Released Date/Time: Sep 24, 2022 01:55 PM Reporting Lab: [facility] [address] Performing Lab: [facility] [address] [place] [facility] CBC & DIFF MONOCYTES/ 100 LEUKOCYTES IN BLOOD BY AUTOMATED COUNT 10.2 10/08 Specimen Type: BLOOD Comment: Automated Differentia l Performed Ordering Provider: ANKUSH BOWMAN Report Released Date/Time: Sep 24, 2022 01:55 PM Reporting Lab: [facility] [address] Performing Lab: [facility] [address] [place] [facility] CBC & DIFF EOSINOPHIL S/100 LEUKOCYTES IN BLOOD BY AUTOMATED COUNT 2.2 10/08 Specimen Type: BLOOD Comment: Automated Differentia l Performed Ordering Provider: ANKUSH BOWMAN Report Released Date/Time: Sep 24, 2022 01:55 PM Reporting Lab: [facility] [address] Performing Lab: [facility] [address] [place] [facility] CBC & DIFF BASOPHILS/ 100 LEUKOCYTES IN BLOOD BY MANUAL COUNT 0.4 10/08 Specimen Type: BLOOD Comment: Automated Differentia l Performed Ordering Provider: ANKUSH BOWMAN Report Released Date/Time: Sep 24, 2022 01:55 PM Reporting Lab: [facility] [address] Performing Lab: [facility] [address] [place] [facility] CBC & DIFF ERYTHROCYT E DISTRIBUTI ON WIDTH [RATIO] BY AUTOMATED COUNT 15.9 11.5 - 14.5 10/08 H Specimen Type: BLOOD Comment: Automated Differentia l Performed Ordering Provider: ANKUSH BOWMAN Report Released Date/Time: Sep 24, 2022 01:55 PM Reporting Lab: [facility] [address] Performing Lab: [facility] [address] [place] [facility] CBC & DIFF LYMPHOCYTE S [#/VOLUME] IN BLOOD BY AUTOMATED COUNT 2.30 10*3/uL 1.0 - 4.0 10/08 Specimen Type: BLOOD Comment: Automated Differentia l Performed Ordering Provider: ANKUSH BOWMAN Report Released Date/Time: Sep 24, 2022 01:55 PM Reporting Lab: [facility] [address] Performing Lab: [facility] [address] [place] [facility] CBC & DIFF MONOCYTES [#/VOLUME] IN BLOOD BY AUTOMATED COUNT 0.75 10*3/uL 0.1 - 1.0 10/08 Specimen Type: BLOOD Comment: Automated Differentia l Performed Ordering Provider: ANKUSH BOWMAN Report Released Date/Time: Sep 24, 2022 01:55 PM Reporting Lab: [facility] [address] Performing Lab: [facility] [address] [place] [facility] CBC & DIFF NEUTROPHIL S [#/VOLUME] IN BLOOD BY AUTOMATED COUNT 4.06 10*3/uL 2.0 - 7.7 11/28 /2022 Specimen Type: BLOOD Comment: Automated Differentia l Performed Ordering Provider: ANKUSH BOWMAN Report Released Date/Time: Sep 24, 2022 01:55 PM Reporting Lab: [facility] [address] Performing Lab: [facility] [address] [place] [facility] CBC & DIFF EOSINOPHIL S [#/VOLUME] IN BLOOD BY AUTOMATED COUNT 0.16 10*3/uL 0 - 0.5 10/08 Specimen Type: BLOOD Comment: Automated Differentia l Performed Ordering Provider: ANKUSH BOWMAN Report Released Date/Time: Sep 24, 2022 01:55 PM Reporting Lab: [facility] [address] Performing Lab: [facility] [address] [place] [facility] CBC & DIFF BASOPHILS [#/VOLUME] IN BLOOD BY AUTOMATED COUNT 0.03 10*3/uL 0 - 0.2 10/08 Specimen Type: BLOOD Comment: Automated Differentia l Performed Ordering Provider: ANKUSH BOWMAN Report Released Date/Time: Sep 24, 2022 01:55 PM Reporting Lab: [facility] [address] Performing Lab: [facility] [address] [place] [facility] CBC & DIFF IG(META,MY MALACHI,PRO) 0.3 10/08 Specimen Type: BLOOD Comment: Automated Differentia l Performed Ordering Provider: ANKUSH BOWMAN Report Released Date/Time: Sep 24, 2022 01:55 PM Reporting Lab: [facility] [address] Performing Lab: [facility] [address] [place] [facility] CBC & DIFF IMMATURE GRANULOCYT ES [PRESENCE] IN BLOOD BY AUTOMATED COUNT 0.02 10*3/uL 0 - 0.1 10/08 Specimen Type: BLOOD Comment: Automated Differentia l Performed Ordering Provider: ANKUSH BOWMAN Report Released Date/Time: Sep 24, 2022 01:55 PM Reporting Lab: [facility] [address] Performing Lab: [facility] [address] [place] [facility] CYSTATIN C WITH EGFR CYSTATIN C [MASS/VOLU ME] IN SERUM OR PLASMA 1.38 mg/L 0.51 - 1.05 10/08 H Specimen Type: PLASMA No comment entered. Ordering Provider: ANKUSH BOWMAN Report Released Date/Time: Sep 24, 2022 01:55 PM Reporting Lab: [facility] [address] Performing Lab: [facility] [address] [place] [facility] CYSTATIN C WITH EGFR CYSTATIN C AND GLOMERULAR FILTRATION RATE BY CYSTATIN-B ASED FORMULA PANEL - SERUM OR PLASMA 48 60 10/08 L Specimen Type: PLASMA No comment entered. Ordering Provider: ANKUSH BOWMAN Report Released Date/Time: Sep 24, 2022 01:55 PM Reporting Lab: [facility] [address] Performing Lab: [facility] [address] [place] [facility] VIT D 25-OH,TO ZAMZAM 25-HYDROXY VITAMIN D3 [MASS/VOLU ME] IN SERUM OR PLASMA 54 ng/mL 12 - 50 10/08 H Specimen Type: SERUM No comment entered. Ordering Provider: ANKUSH BOWMAN Report Released Date/Time: Sep 24, 2022 01:55 PM Reporting Lab: [facility] [address] Performing Lab: [facility] [address] [place] [facility] Encounters Combined list of: 1) Encounters from Department of Veterans Affairs facilities going back up to thelast 18 months. 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 Location Location Details Encounter Type Encounter Number Reason For Visit Attending Provider ADM Date DC Date Status Disposition Source [place] [facility] Outpatient Encounter [id number] 02/19 [facility] [place] [facility] HC PRO PHONE CALL 11-20 MIN [id number] Diagnos is: ICD-10- CM Z73.6 Limitat ion of activit ies due to disabil ity<br/ > BOUSLOG,RY AN P 04/23 [place] [facility] [place] [facility] Outpatient Encounter [id number] 04/24 [facility] [place] [facility] Outpatient Encounter [id number] 05/24 [facility] [place] [facility] OFF/OP EST MAY X REQ PHY/QHP [id number] Diagnos is: ICD-10- CM G82.20 Paraple mary kay, unspeci fied
VIOLA YOON NDA 05/28 [facility] WHEELCHAIR MNGMENT TRAINING [id number] Diagnos is: ICD-10- CM Z73.6 Limitat ion of activit ies due to disabil ity<br/ > BOUSLOG,RY AN P 06/10 [facility] Outpatient Encounter [id number] 10/28 [facility] [place] [facility] Outpatient Encounter [id number] 11/20 [facility] [place] [facility] Outpatient Encounter [id number] 05/12 [facility] [place] [facility] Outpatient Encounter [id number] 07/23 [facility] [place] [facility] Outpatient Encounter [id number] DEE ANDERS 07/28 [facility] Social History Combined list of available smoking, tobacco, and other social history from 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 Social History Type Response Date Comment Sour e Tobacco smoking status [facility] NEVER USED 05/28/20 22 SADAF TREVINO [facility] This section is an empty social history section. DoD Advance Directives List of completed, amended, or rescinded Advance Directives on record at Department of 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 An actual copy of the Directive is not included. Date Advance Directive Provider Source 02/05/2023 ADVANCE DIRECTIVE DISCUSSION GUSTAVO ABAD [facility]
--- OUTSIDE RECORDS SUMMARY | 2024-08-31 12:50 | XMS_ITS | Clinical Summary ---
Author Organization [facility] Address [address] [place] [address] Care Team Providers Care Field Reimbursement Manager Name Role Phone Franklin Squires MD Primary Care Provider [phone] Source Comments You are receiving this document [...] for each transition of care or referral. 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 DEVICE Right: LUMBAR SPINE Photoblog 01/18/2012 8709 / N/A / [id number] Cath Intrathecal Indura - [id number] Implanted:Qty: 1 on 05/29/[address] [facility] DEVICE Photoblog 8709 / / Scr Indira Conic 7.3x80 - Implanted:Qty: 1 on 03/13/[address] [facility] DEVICE Right: FEMUR DISTAL Synthes [facility] 0 / NONE / NONE Plt Lcp Cndl Rt 4.5x170 6h - [id number] Implanted:Qty: 1 on 03/13/[address] [facility] DEVICE Right: FEMUR DISTAL Synthes [place] 222.656 / NONE / NONE Description:6 hole 170mm rig ht 4.5mm lcp condylar plate Scr Didier Ss Sftp 4.5x40 - [id number] Implanted:Qty: 1 on 03/13/[address] [facility] DEVICE Left: FEMUR DISTAL Synthes [place] 214.840 / NONE / NONE Scr Didier Ss Sftp 4.5x50 - [id number] Implanted:Qty: 1 on 03/13/[address] [facility] DEVICE Left: FEMUR DISTAL [employer]ynthe[employer] [place] 214.850 / NONE / NONE Scr Indira Lk 5.0x80 - [id number] Implanted:Qty: 2 on 03/13/[address] [facility] DEVICE Left: FEMUR DISTAL [employer] [place] 02.205.08 0 / NONE / NONE Scr Indira Lk 5.0x85 - [id number] Implanted:Qty: 2 on 03/13/[address] [facility] DEVICE Left: FEMUR DISTAL [employer]ynthes [place] 02.205.08 5 / NONE / NONE Scr Lk Sftp T25 5.0x50 - [id number] Implanted:Qty: 1 on 03/13/[address] [facility] DEVICE Left: FEMUR DISTAL [employer]ynthes [place] 212.219 / NONE / NONE Scr Lk Sftp T25 5.0x60 - [id number] Implanted:Qty: 1 on 03/13/[address] [facility] DEVICE Left: FEMUR DISTAL [employer] [place] 212.221 / NONE / NONE Scr Indira Conic 7.3x85 - [id number] Implanted:Qty: 1 on 03/13/[address] [facility] DEVICE Left: FEMUR DISTAL [employer]ynthes [place] 02.207.28 5 / NONE / NONE Plt Lcp Cndl Lt 4.5x170 6h - [id number] Implanted:Qty: 1 on 03/13/[address] [facility] DEVICE Left: FEMUR DISTAL [employer]ynthes [place] 222.657 / NONE / NONE Description:6 hole 170mmleng th left 4.5mm lcp condylar plate. Scr Didier Sftp 3.5x60 F-Thrd - [id number] Implanted:Qty: 1 on 03/13/[address] [facility] DEVICE Left: TIBIA PROXIMAL Synthes [place] 204.860 / NONE / NONE Scr Star Lk Sftp 3.5x32 - [id number] Implanted:Qty: 1 on 03/13/[address] [facility] DEVICE Left: TIBIA PROXIMAL [employer] [place] 212.112 / NONE / NONE Scr Star Lk Sftp 3.5x55 - [id number] Implanted:Qty: 2 on 03/13/[address] [facility] DEVICE Left: TIBIA PROXIMAL [employer] [place] 212.123 / NONE / NONE Scr Star Lk Sftp 3.5x60 - [id number] Implanted:Qty: 2 on 03/13/[address] [facility] DEVICE Left: TIBIA PROXIMAL [employer] [place] 212.124 / NONE / NONE Plt Lcp M/Prox Lt 3.5x94 4h - [id number] Implanted:Qty: 1 on 03/13/[address] [facility] DEVICE Left: TIBIA PROXIMAL [employer] [place] 239.955 / NONE / NONE Scr Didier Ss Sftp 4.5x36 - [id number] Implanted:Qty: 1 on 03/13/[address] [facility] DEVICE Right: FEMUR DISTAL [employer]ynthes [place] 214.836 / NONE / NONE Scr Didier Ss Sftp 4.5x44 - [id number] Implanted:Qty: 1 on 03/13/[address] [facility] DEVICE Right: FEMUR DISTAL [employer]ynthe[employer] [place] 214.844 / NONE / NONE Scr Indira Lk 5.0x75 - [id number] Implanted:Qty: 1 on 03/13/[address] [facility] DEVICE Right: FEMUR DISTAL [employer]ynthes [place] 02.205.07 5 / NONE / NONE Scr Indira Lk 5.0x85 - [id number] Implanted:Qty: 2 on 03/13/[address] [facility] DEVICE Right: FEMUR DISTAL Synthes [place] 02.205.08 5 / NONE / NONE Scr Lk Sftp T25 5.0x44 - [id number] Implanted:Qty: 1 on 03/13/[address] [facility] DEVICE Right: FEMUR DISTAL [employer]ynthe[employer] [place] 212.216 / NONE / NONE Scr Lk Sftp T25 5.0x65 - [id number] Implanted:Qty: 1 on 03/13/[address] [facility] DEVICE Right: FEMUR DISTAL [employer]ynthes [place] 212.222 / NONE / NONE Plt Lp T Ti Str 4h - [id number] Implanted:Qty: 3 on 07/28/2014 by Cooper Shelley MD at [facility] DEVICE Right: SKULL Synthes [place] 421.504 / / Scr Matrix Sfdr 4mm - [id number] Implanted:Qty: 6 on 07/28/2014 by Cooper Shelley MD at [facility] DEVICE Right: SKULL Synthes [place] 04.503.10 4.01 / / Lead Linear 3-4 8 Contact 50cm - [id number] Implanted:Qty: 1 on 03/08/2016 by Zelalem Cohen DO at [facility] DEVICE N/A: OTHER-SEE DESCRIPTION [employer] [facility] 09/10/2017 [id number] 2500 / / [id number] Description:LUMBAR Lead Linear 3-4 8 Contact 50cm - [id number] Implanted:Qty: 1 on 03/08/2016 by Zelalem Cohen DO at [facility] DEVICE N/A: OTHER-SEE DESCRIPTION [employer] [facility] 09/10/2017 [id number] 2500 / / [id number] Description:LUMBAR Lead Linear 3-4 8 Contact 50cm - [id number] Implanted:Qty: 1 on 03/08/2016 by Zelalem Cohen DO at [facility] DEVICE N/A: OTHER-SEE DESCRIPTION [facility] 09/10/2017 [id number] 2500 / / [id number] Description:LUMBAR Lead Linear 3-4 8 Contact 50cm - [id number] Implanted:Qty: 1 on 03/08/2016 by Zelalem Cohen DO at [facility] DEVICE N/A: OTHER-SEE DESCRIPTION [facility] 09/10/2017 [id number] 2500 / / [id number] Description:LUMBAR Lead Linear 3-4 8 Contact 50cm - [id number] Implanted:Qty: 1 on 05/24/2016 by Zelalem Cohen DO at [facility] DEVICE N/A: SPINE LUMBAR POSTERIOR [facility] 01/31/2018 [id number] 2500 / [id number] / Lead Linear 3-4 8 Contact 50cm - [id number] Implanted:Qty: 1 on 05/24/2016 by Zelalem Cohen DO at [facility] DEVICE N/A: SPINE LUMBAR POSTERIOR [facility] 04/26/2018 [id number] 2500 / [id number] / Lead Linear 3-4 8 Contact 50cm - [id number] Implanted:Qty: 1 on 05/24/2016 by Zelalem Cohen DO at [facility] DEVICE N/A: SPINE LUMBAR POSTERIOR [facility] 04/26/2018 [id number] 2500 / [id number] / Lead Linear 3-4 8 Contact 50cm - [id number] Implanted:Qty: 1 on 05/24/2016 by Zelalem Cohen DO at [facility] DEVICE N/A: SPINE LUMBAR POSTERIOR [facility] 04/26/2018 [id number] 2500 / [id number] / Generator Pulse Spectra - [id number] Implanted:Qty: 1 on 05/24/2016 by Zelalem Cohen DO at [facility] DEVICE N/A: SPINE LUMBAR POSTERIOR [facility] 05/08/2018 [id number] 20 / [id number] / [id number] [place] Clik - [id number] Implanted:Qty: 1 on 05/24/2016 by Zelalem Cohen DO at [facility] DEVICE N/A: SPINE LUMBAR POSTERIOR [facility] 05/02/2018 [id number] 60 / / [id number] [place] Clik - [id number] Implanted:Qty: 1 on 05/24/2016 by Zelalem Cohen DO at 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 HGB A1C Routine 07/29/2014 3:19 AM CDT from Last 3 Months or Most Recently Relevant to Health Maintenance Results * CREATININE/GFR, WB POC (01/06/2016 12:04 PM MOLD REPAIRER) Pathologist [facility] Creat Whole Blood 0.9 0.66 - 1.25 mg/dl [facility] GFR, Estimated >60 >60 ml/min/1.7 3m2 [facility] GFR, Est., If Black >60 >60 ml/min/1.7 3m2 [facility] 01/06/2016 12:0 4 PM MOLD REPAIRER 01/06/2016 12:21 PM MOLD REPAIRER Trae Blair MD LAB_1 [facility] [phone] * (ABNORMAL) HGB A1C (07/29/2014 3:19 AM CDT) Hgb A1c 6.4(H) 4.3 - 6.1 % [facility] Comment: The usual A1C goal for people with diabetes, age 18-75, is <8.0%. Physicians may recommend a higher or lower goal for specific individuals. 07/29/2014 3:19 AM CDT 07/29/2014 3:22 AM CDT Narrative [facility] - 07/29/2014 12:53 PM CDT [facility] [address] [place] [address] ??[id number] [place] Wei PA-C LAB_[address] [address] from Last 3 Months or Most Recently [...] 5:44 PM 07/28/2014 6:50 PM Care Teams Field Reimbursement Manager Relationship Specialty Start Date End Date Franklin Squires MD [address] [place] [address] Av[place] [address] PCP - General Family Practice 03/08/16
--- OUTSIDE RECORDS SUMMARY | 2024-08-31 12:50 | XMS_ITS | Encounter Summary ---
Author Organization [facility] Address [address] [address] Care Team Providers Care Mechanic Name Role Phone Franklin Squires MD Primary Care Provider [phone] Encounter Details Date Type Department Care Team (Late st Contact Info) Description 05/04/2014 [facility] 401 Physical Medicine 401 [facility] [place] [address] May Randle MD [address] [place] [address] LETTER OF MEDICAL NECESSITY FOR A WHEELCHAIR [...] on filedocumented in this encounter Care Teams Mechanic Relationship Specialty Start Date End Date Franklin Squires MD 100 [facility] [place] [address] PCP - General Family Practice 03/08/16 documented as of this encounter
--- OUTSIDE RECORDS SUMMARY | 2024-08-31 12:50 | XMS_ITS | Encounter Summary ---
[facility] Address [address], [place] [address] Care Team Providers Care Car Ferry Master Name Role Phone Franklin Squires MD Primary Care Provider Encounter Details Date Type Department Care Team (Late st Contact Info) Description 07/28/2014 Outside Hospital External to External, Provider No address [address] ER VISIT/TRANSFER Social History Tobacco Use [...] on filedocumented in this encounter Care Teams Car Ferry Master Relationship Specialty Start Date End Date Franklin Squires MD 100 [facility] [place] [address] PCP - General Family Practice 03/08/16 documented as of this encounter
--- OUTSIDE RECORDS SUMMARY | 2024-08-31 12:50 | XMS_ITS | Encounter Summary ---
Author Organization [facility] Address [address], [place] [address] Care Team Providers Care Electronic Tester Name Role Phone Franklin Squires MD Primary Care Provider Encounter Details Date Type Department Care Team (Late st Contact Info) Description 08/20/2014 Outside Hospital External to [facility] Social History Tobacco Use [...] filedocumented in this encounter Care Teams Electronic Tester Relationship Specialty Start Date End Date Franklin Squires MD [address] [place], [place] [address] [address] PCP - General Family Practice 03/08/16 documented as of this encounter
--- OUTSIDE RECORDS SUMMARY | 2024-08-31 12:50 | XMS_ITS | Encounter Summary ---
Author Organization [facility] Address [address] [address] Care Team Providers Care General Foundry Worker Name Role Phone Franklin Squires MD Primary Care Provider [phone] Encounter Details Date Type Department Care Team (Late st Contact Info) Description 03/11/2014 [facility] 401 Interventional Pain Management 401 [facility] [place] [address] Zelalem Cohen, DO [address] [place] [address] EMPI Social History Tobacco Use Types Packs/Day [...] filedocumented in this encounter Care Teams General Foundry Worker Relationship Specialty Start Date End Date Franklin Squires MD 100 [facility] [place] [address] PCP - General Family Practice 03/08/16 documented as of this encounter
--- OUTSIDE RECORDS SUMMARY | 2024-08-31 12:50 | XMS_ITS | Encounter Summary ---
Author Organization [facility] Address [address], [place] [address] Care Team Providers Care Anesthesiology Fellow Name Role Phone Franklin Squires MD Primary Care Provider [phone] Encounter Details Date Type Department Care Team (Late st Contact Info) Description 01/06/2016 Correspondence [facility] Radiology [address] [place] [address] Radiology, Provider MRI SAFETY SHEET AND COMPATIBILITY [...] on filedocumented in this encounter Care Teams Anesthesiology Fellow Relationship Specialty Start Date End Date Franklin Squires MD [address] [place], [place] [address] [address] PCP - General Family Practice 03/08/16 documented as of this encounter
--- OUTSIDE RECORDS SUMMARY | 2024-08-31 12:50 | XMS_ITS | Encounter Summary ---
Author Organization [facility] Address [address] [address] Care Team Providers Care Flame Cutting Machine Operator Helper Name Role Phone Franklin Squires MD Primary Care Provider Encounter Details Date Type Department Care Team (Late st Contact Info) Description 12/14/2014 [facility] 401 Physical Medicine 401 [facility] [place] [address] May Randle MD [address] [place] [address] DETAILED PRODUCT DESCRIPTION Social History Tobacco Use [...] on filedocumented in this encounter Care Teams Flame Cutting Machine Operator Helper Relationship Specialty Start Date End Date Franklin Squires MD 100 [facility] [place] [address] PCP - General Family Practice 03/08/16 documented as of this encounter
--- OUTSIDE RECORDS SUMMARY | 2024-08-31 12:50 | XMS_ITS ---
Author Organization [facility] Address [address] [address] Care Team Providers Care Glass Installer Name Role Phone Franklin Squires MD Primary Care Provider [phone] Active Problems Problem Noted Date Diagnosed Date [...] 0 06/10/2014 History of anticoagulant therapy 02/17/2014 protective officer current use of anticoagulant therapy 0 02/17/2014 [...]
--- OUTSIDE RECORDS SUMMARY | 2024-08-31 12:50 | XMS_ITS | Encounter Summary ---
Author Organization [facility] Address [address], [place] [address] Care Team Providers Care Truck Mechanic Name Role Phone Franklin Squires MD Primary Care Provider [phone] Encounter Details Date Type Department Care Team (Late st Contact Info) Description 09/07/2014 Correspondence [facility] Radiology [address] [place] [address] Radiology, Provider MRI SAFETY SHEET AND COMPATIBILITY [...] filedocumented in this encounter Care Teams Truck Mechanic Relationship Specialty Start Date End Date Franklin Squires MD [address] [place], [place] [address] [address] PCP - General Family Practice 03/08/16 documented as of this encounter
--- OUTSIDE RECORDS SUMMARY | 2024-08-31 12:50 | XMS_ITS | Encounter Summary ---
Author Organization [facility] Address [address] [address] Care Team Providers Care Marine Resource Economist Name Role Phone Franklin Squires MD Primary Care Provider Encounter Details Date Type Department Care Team (Late st Contact Info) Description 06/07/2015 Correspondence [facility] Radiology [address] [place] [address] Radiology, Provider MRI SAFETY SHEET AND COMPATIBILITY [...] filedocumented in this encounter Care Teams Marine Resource Economist Relationship Specialty Start Date End Date Franklin Squires MD [address] [place], [place] [address] [address] PCP - General Family Practice 03/08/16 documented as of this encounter
--- OUTSIDE RECORDS SUMMARY | 2024-08-31 12:50 | XMS_ITS | Encounter Summary ---
Author Organization [facility] Address [address], [place] [address] Care Team Providers Care Tool Dispatcher Name Role Phone Franklin Squires MD Primary [...] filedocumented in this encounter Care Teams Tool Dispatcher Relationship Specialty Start Date End Date Franklin Squires MD 100 [facility] [address] PCP - General Family Practice 03/08/16 documented as of this encounter
--- OUTSIDE RECORDS SUMMARY | 2024-08-31 12:50 | XMS_ITS | Encounter Summary ---
Author Organization [facility] Address [address] [address] Care Team Providers Care Relocation Commissioner Name Role Phone Franklin Squires MD Primary Care Provider [phone] Encounter Details Date Type Department Care Team (Late st Contact Info) Description 06/11/2014 [facility] 401 Physical Medicine 401 [place] [address] May Randle MD [address] [place] [address] [facility] Social History Tobacco Use Types Packs/Day [...] filedocumented in this encounter Care Teams Relocation Commissioner Relationship Specialty Start Date End Date Franklin Squires MD 100 [facility] [place] [address] PCP - General Family Practice 03/08/16 documented as of this encounter
--- OUTSIDE RECORDS SUMMARY | 2024-08-31 12:50 | XMS_ITS | Encounter Summary ---
Author Organization [facility] Address [address], [place] [address] Care Team Providers Care Cattle Inspector Name Role Phone Franklin Squires MD Primary Care Provider [phone] Encounter Details Date Type Department Care Team (Latest Contact Info) Description 06/04/2014 [facility] 401 Interventional Pain Management 401 [facility] [place] [address] Zelalem Cohen, DO [address] [place] [address] MEDICAID PT INFORMATION EMPI RECOVERY Social History [...] on filedocumented in this encounter Care Teams Cattle Inspector Relationship Specialty Start Date End Date Franklin Squires MD 100 [facility] [address] PCP - General Family Practice 03/08/16 documented as of this encounter
--- OUTSIDE RECORDS SUMMARY | 2024-08-31 12:50 | XMS_ITS | Encounter Summary ---
Author Organization [facility] Address [address] [address] Care Team Providers Care Fur Tanner Name Role Phone Franklin Squires MD Primary Care Provider Encounter Details Date Type Department Care Team (Late st Contact Info) Description 11/23/2015 Correspondence External to External, [place] [address] LETTER [facility] Social History [...] filedocumented in this encounter Care Teams Fur Tanner Relationship Specialty Start Date End Date Franklin Squires MD [address] [place] [address] [place] [address] PCP - General Family Practice 03/08/16 documented as of this encounter
--- OUTSIDE RECORDS SUMMARY | 2024-08-31 12:50 | XMS_ITS | Encounter Summary ---
Author Organization [facility] Address [address], [place] [address] Care Team Providers Care Pattern Generator Operator Name Role Phone Franklin Squires MD Primary Care Provider [phone] Encounter Details Date Type Department Care Team (Late st Contact Info) Description 12/16/2014 Correspondence External to External, [place] [address] MEDICARE PLAN OF CARE RECERT Social History [...] on filedocumented in this encounter Care Teams Pattern Generator Operator Relationship Specialty Start Date End Date Franklin Squires MD [address] [place] [address] [place] [address] PCP - General Family Practice 03/08/16 documented as of this encounter
--- OUTSIDE RECORDS SUMMARY | 2024-08-31 12:50 | XMS_ITS | Encounter Summary ---
Author Organization [facility] [address] [address] Care Team Providers Care Resident Surgeon Name Role Phone Franklin Squires MD Primary Care Provider [phone] Encounter Details Date Type Department Care Team (Late st Contact Info) Description 02/05/2014 Correspondence [facility] Physical Therapy [address] [place] [address] Trudi Raymundo, PT [address] [place] [address] LETTER OF MEDICAL NECESSITY FOR A WHEELCHAIR [...] on filedocumented in this encounter Care Teams Resident Surgeon Relationship Specialty Start Date End Date Franklin Squires MD 100 [facility] [place] [address] PCP - General Family Practice 03/08/16 documented as of this encounter
--- OUTSIDE RECORDS SUMMARY | 2024-08-31 12:50 | XMS_ITS | Encounter Summary ---
Author Organization [facility] Address [address], [place] [address] Care Team Providers Care Zoology Teacher Name Role Phone Franklin Squires MD Primary Care Provider [phone] Encounter Details Date Type Department Care Team (Late st Contact Info) Description 02/09/2016 [facility] 401 NeuroSurgery 401 [facility]. [place], [place] [id number] Jodi Aguila PA-C [address] [place] [address] PATIENT LIFT PRESCRIPTION Social History Tobacco Use [...] on filedocumented in this encounter Care Teams Zoology Teacher Relationship Specialty Start Date End Date Franklin Squires MD 100 [facility] [place] [id number] PCP - General Family Practice 03/08/16 documented as of this encounter
--- OUTSIDE RECORDS SUMMARY | 2024-08-31 12:50 | XMS_ITS | Encounter Summary ---
Author Organization [facility] Address [address] [address] Care Team Providers Care Vp Global Marketing Solutions Name Role Phone Franklin Squires MD Primary Care Provider [phone] Encounter Details Date Type Department Care Team [...] filedocumented in this encounter Care Teams Vp [employer] Marketing Solutions Relationship Specialty Start Date End Date Franklin Squires MD 100 [facility] [place] [address] PCP - General Family Practice 03/08/16 documented as of this encounter
--- OUTSIDE RECORDS SUMMARY | 2024-08-31 12:50 | XMS_ITS | Encounter Summary ---
Author Organization [facility] [address], [place] [address] Care Team Providers Care System Administration Manager Name Role Phone Franklin Squires MD Primary Care Provider [phone] Encounter Details Date Type Department Care Team (Late st Contact Info) Description 07/08/2015 Correspondence [facility] Physical Therapy [address] [place] [address] Trudi Raymundo, PT [address] [place] [address] ADDENDUM FOR LETTER OF MEDICAL NECESSITY Social [...] on filedocumented in this encounter Care Teams System Administration Manager Relationship Specialty Start Date End Date Franklin Squires MD 100 [facility] [place] [address] PCP - General Family Practice 03/08/16 documented as of this encounter
--- OUTSIDE RECORDS SUMMARY | 2024-08-31 12:50 | XMS_ITS | Encounter Summary ---
Author Organization [facility] [address], [place] [address] Care Team Providers Care Exceptional Children Teacher Assistant Name Role Phone Franklin Squires MD Primary Care Provider Encounter Details Date Type Department Care Team (Late st Contact Info) Description 11/10/2014 Correspondence [facility] Physical Therapy [address] [place] [address] Trudi Raymundo, PT [address] [place] [address] LETTER OF MEDICAL NECESSITY Social History Tobacco [...] on filedocumented in this encounter Care Teams Exceptional Children Teacher Assistant Relationship Specialty Start Date End Date Franklin Squires MD 100 [facility] [place] [address] PCP - General Family Practice 03/08/16 documented as of this encounter
--- OUTSIDE RECORDS SUMMARY | 2024-08-31 12:50 | XMS_ITS | Encounter Summary ---
Author Organization [facility] Address [address], [place] [address] Care Team Providers Care Acid Purifier Name Role Phone Franklin Squires MD Primary Care Provider [phone] Encounter Details Date Type Department Care Team [...] filedocumented in this encounter Care Teams Acid Purifier Relationship Specialty Start Date End Date Franklin Squires MD 100 [facility] [address] PCP - General Family Practice 03/08/16 documented as of this encounter
--- OUTSIDE RECORDS SUMMARY | 2024-08-31 12:50 | XMS_ITS | Encounter Summary ---
Author Organization [facility] Address [address] [address] Care Team Providers Care Family And Marriage Counsellor Name Role Phone Franklin Squires MD Primary Care Provider [phone] Encounter Details Date Type Department Care Team [...] filedocumented in this encounter Care Teams Family And Marriage Counsellor Relationship Specialty Start Date End Date Franklin Squires MD 100 [facility] [place] [address] PCP - General Family Practice 03/08/16 documented as of this encounter
--- OUTSIDE RECORDS SUMMARY | 2024-08-31 12:50 | XMS_ITS | Encounter Summary ---
Author Organization [facility] Address [address] [address] Care Team Providers Care Whiskey Filterer Name Role Phone Franklin Squires MD Primary Care Provider [phone] Encounter Details Date Type Department Care Team (Late st Contact Info) Description 08/20/[address] External to [facility] H/P Social History Tobacco Use [...] filedocumented in this encounter Care Teams Whiskey Filterer Relationship Specialty Start Date End Date Franklin Squires MD 100 [facility] [address] PCP - General Family Practice 03/08/16 documented as of this encounter
--- OUTSIDE RECORDS SUMMARY | 2024-08-31 12:50 | XMS_ITS | Encounter Summary ---
Author Organization [facility] Address [address], [place] [address] Care Team Providers Care Cosmetic Manager Name Role Phone Franklin Squires MD Primary Care Provider [phone] Encounter Details Date Type Department Care Team (Latest Contact Info) Description 12/11/2017 Correspondence Physiatry/Physical Medicine at [facility] [address] [facility] [place] [address] May Randle MD [address] [place] [address] [employer] Social History Tobacco Use [...] on filedocumented in this encounter Care Teams Cosmetic Manager Relationship Specialty Start Date End Date Franklin Squires MD [address] [place] [address] [place] [address] PCP - General Family Practice 03/08/16 documented as of this encounter
--- OUTSIDE RECORDS SUMMARY | 2024-08-31 12:51 | XMS_ITS | Encounter Summary ---
Author Organization [facility] Address [address] [address] Care Team Providers Care Corporate Legal Intern Name Role Phone Franklin Squires MD Primary Care Provider [phone] Encounter Details Date Type Department Care Team (Late st Contact Info) Description 07/23/2013 Correspondence [facility] 401 [facility] [address] Zelalem Cohen DO [address] [place] [address] [employer] Social History Tobacco Use Types [...] Cohen MD - 07/23/2013 12:00 AM CDT RTMENT SPECIALIST documented in this encounter Plan of Treatment Not on file documented as of this encounter Visit Diagnoses Not on filedocumented in this encounter Care Teams Corporate Legal Intern Relationship Specialty Start Date End Date Franklin Squires MD 100 [facility] [place] [address] PCP - General Family Practice 03/08/16 documented as of this encounter
--- OUTSIDE RECORDS SUMMARY | 2024-08-31 12:51 | XMS_ITS | Encounter Summary ---
Author Organization [facility] Address [address], [place] [address] Care Team Providers Care Sheet Folder Name Role Phone Franklin Squires MD Primary Care Provider Encounter Details Date Type Department Care Team (Late st Contact Info) Description 04/24/2012 Correspondence [facility] Radiology [address] [place] [address] Radiology, Provider MRI SAFETY SHEET AND COMPATIBILITY [...] filedocumented in this encounter Care Teams Sheet Folder Relationship Specialty Start Date End Date Franklin Squires MD 100 [facility] [place] [address] PCP - General Family Practice 03/08/16 documented as of this encounter
--- OUTSIDE RECORDS SUMMARY | 2024-08-31 12:51 | XMS_ITS | Encounter Summary ---
Author Organization [facility] Address [address], [place] [address] Care Team Providers Care Consultant Name Role Phone Franklin Squires MD Primary Care Provider Encounter Details Date Type Department Care Team (Late st Contact Info) Description 04/20/[address] [address] Radiology, Provider MRI SAFETY SHEET AND COMPATIBILITY [...] on filedocumented in this encounter Care Teams Consultant Relationship Specialty Start Date End Date Franklin Squires MD 100 [facility] [place] [address] PCP - General Family Practice 03/08/16 documented as of this encounter
--- OUTSIDE RECORDS SUMMARY | 2024-08-31 12:51 | XMS_ITS | Encounter Summary ---
Author Organization [facility] Address [address], [place] [address] Care Team Providers Care Meat Cooler Name Role Phone Franklin Squires MD Primary Care Provider [phone] Encounter Details Date Type Department Care Team (Late st Contact Info) Description 12/16/2013 Correspondence [facility] Radiology [address] [place] [address] Radiology, Provider MRI SAFETY SHEET AND COMPATIBILITY [...] Radiology, Provider - 12/16/2013 12:00 AM CST STONE SETTER documented in this encounter Plan of Treatment Not on file documented as of this encounter Visit Diagnoses Not on filedocumented in this encounter Care Teams Meat Cooler Relationship Specialty Start Date End Date Franklin Squires MD 100 [facility] [place] [address] PCP - General Family Practice 03/08/16 documented as of this encounter
--- OUTSIDE RECORDS SUMMARY | 2024-08-31 12:51 | XMS_ITS | Encounter Summary ---
Author Organization [facility] [address], [place] [address] Care Team Providers Care Local Company Tanker Driver Name Role Phone Franklin Squires MD Primary Care Provider [phone] Encounter Details Date Type Department Care Team (Late st Contact Info) Description 11/13/2012 Correspondence [facility] Radiology [address] [place] [address] Radiology, Provider MRI SAFETY SHEET AND COMPATIBILITY [...] RADIOLOGY, PROVIDER - 11/13/2012 12:00 AM CST ERNMAKER APPRENTICE WOOD documented in this encounter Plan of Treatment Not on file documented as of this encounter Visit Diagnoses Not on filedocumented in this encounter Care Teams Local Company Tanker Driver Relationship Specialty Start Date End Date Franklin Squires MD 100 [facility] [place] [address] PCP - General Family Practice 03/08/16 documented as of this encounter
--- OUTSIDE RECORDS SUMMARY | 2024-08-31 12:51 | XMS_ITS | Encounter Summary ---
Author Organization [facility] Address [address] [address] Care Team Providers Care Parboiler Name Role Phone Franklin Squires MD Primary Care Provider [phone] Encounter Details Date Type Department Care Team (Late st Contact Info) Description 01/08/2013 Scanned History External to Transferred Record, Provider [facility] Social History Tobacco Use [...] on filedocumented in this encounter Care Teams Parboiler Relationship Specialty Start Date End Date Franklin Squires MD [address] [facility] [address] PCP - General Family Practice 03/08/16 documented as of this encounter
--- OUTSIDE RECORDS SUMMARY | 2024-08-31 12:51 | XMS_ITS | Encounter Summary ---
Author Organization [facility] Address [address], [place] [address] Care Team Providers Care Chief Mechanical Engineer Name Role Phone Franklin Squires MD Primary Care Provider [phone] Encounter Details Date Type Department Care Team (Late st Contact Info) Description 09/17/2013 Correspondence External to External, [place] [address] EMPOWERMENT RULES Social History Tobacco Use Types [...] External, Provider - 09/17/2013 12:00 AM CST CENTER CONSULTANT documented in this encounter Plan of Treatment Not on file documented as of this encounter Visit Diagnoses Not on filedocumented in this encounter Care Teams Chief Mechanical Engineer Relationship Specialty Start Date End Date Franklin Squires MD [address] [place] [address] [place] [address] PCP - General Family Practice 03/08/16 documented as of this encounter
--- OUTSIDE RECORDS SUMMARY | 2024-08-31 12:51 | XMS_ITS | Encounter Summary ---
Author Organization [facility] Address [address], [place] [address] Care Team Providers Care Pug Mill Operator Helper Name Role Phone Franklin Squires [...] on filedocumented in this encounter Care Teams Pug Mill Operator Helper Relationship Specialty Start Date End Date Franklin Squires MD 100 [facility] [place] [address] PCP - General Family Practice 03/08/16 documented as of this encounter
--- OUTSIDE RECORDS SUMMARY | 2024-08-31 12:51 | XMS_ITS | Encounter Summary ---
Author Organization [facility] [address], [place] [address] Care Team Providers Care Sand Slinger Operator Name Role Phone Franklin Squires MD Primary Care Provider [phone] Encounter Details Date Type Department Care Team (Late st Contact Info) Description 10/26/2013 Correspondence [facility] Physical Therapy [address] [place] [address] Trudi Raymundo, PT [address] [place] [address] LETTER OF MEDICAL NECESSITY Social History Tobacco [...] Raymundo, PT - 10/26/2013 12:00 AM CST MORTGAGE DISCLOSURE ACT SPECIALIST documented in this encounter Plan of Treatment Not on file documented as of this encounter Visit Diagnoses Not on filedocumented in this encounter Care Teams Sand Slinger Operator Relationship Specialty Start Date End Date Franklin Squires MD 100 [facility] [place] [address] PCP - General Family Practice 03/08/16 documented as of this encounter
== END 2024-08-31 12:48 | disposition home or self-care (01) ==
LOC: WOUND 12:47
PROVIDERS: PCP Family Medicine; Visit Provider Nurse Practitioner Family
DX: M86.68 Other chronic osteomyelitis, other site (principal); L89.324 Pressure ulcer of left buttock, stage 4; G82.50 Quadriplegia, unspecified; Z99.3 Dependence on wheelchair
CPT/HCPCS: 15271; Q4201

== ENCOUNTER 2024-09-07 12:40 | Outpatient (CLI) | payer MEDICARE, OTHER, SELFPAY ==
--- OUTSIDE RECORDS SUMMARY | 2024-09-07 12:43 | XMS_ITS | Clinical Summary ---
Author Organization [facility] Address [place], [place] [address] Care Team Providers Care Cutter Wet Machine Name Role Phone Zelalem Cohen MD Unavailable [phone] May Randle) Unavailable Franklin Squires MD Primary Care Provider Fred Craft Unavailable [phone] Diane Charles MD Unavailable [phone] Julia Ware RN Unavailable [phone] Allergies Active Allergy Reactions Criticality Noted Date [...] bedIndications:Non-heal ing surgical wound, subsequent encounter Drive [employer] 8 inch low loss mattress and 1/2 rails. Semi-electric bed. Length of need 6 weeks. Bed customer account representative:no 1 unit 018 Active acetaminophen (TYLENOL EXTRA [...] 60mm, Cut-to-Fit 01/16 - 2 11/18. Item #[id number]. 1 Each 11 021 Active ascorbic acid, [...] pubic catheter daily 12 Each 023 Active atorvastatin (LIPITOR) 40 mg tabletIndications:Pure hypercholesterolemia Take 1 Tablet (40 mg) by mouth at bedtime. 90 Tablet 2 023 Active potassium chloride (KLOR-CON [...] mouth three times daily. 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),Anticoagulation monitoring, INR range 2-3,SDH (subdural hematoma) (HC) Not currently using this tablet size 024 Active famotidine (PEPCID) 20 mg tabletIndications:Gastr itis, presence of bleeding unspecified, unspecified chronicity, unspecified gastritis type TAKE 1 TABLET TWICE A DAY 180 Tablet 2 024 Active ARIPiprazole (ABILIFY) 2 mg tabletIndications:Delus ions of parasitosis (HC) TAKE 1 TABLET TWICE A DAY 180 Tablet 3 024 Active oxyCODONE 10 mg tabletIndications:Chron ic pain syndrome TAKE ONE TABLET BY MOUTH EVERY 6 HOURS 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),Anticoagulation monitoring, INR range 2-3,Anticoagulation monitoring, INR range 2-3,SDH (subdural hematoma) (HC) Take by mouth 11.25 mg (7.5 mg x 1.5) every Fri; 7.5 mg (7.5 mg x 1) all other days or as directed 2023 Discontinued(R eorder (E-cancel not sent)) warfarin (COUMADIN) 7.5 mg tabletIndications: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),Anticoagulation monitoring, INR range 2-3,Anticoagulation monitoring, INR range 2-3,SDH (subdural hematoma) (HC) Take by mouth 08/29: 11.25 mg; Otherwise 11.25 mg every Fri; 7.5 mg all other days in the evening OR as directed 2023 Discontinued(R eorder (E-cancel not sent)) warfarin (COUMADIN) 7.5 mg tabletIndications: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 Bright PM&R: Dr. May Randle Pain Management: Dr. 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 Pure hypercholesterolemia 12/24/2006 Neurogenic bladder 12/24/2006 Neurogenic bowel 12/24/2006 Hypertension Resolved Problems Problem Noted Date Diagnosed Date Resolved Date Soft tissue infection 10/22/20232023 hide trimmer current use of anticoagulant 06/20/2023 01/08/2024 Cellulitis [...] 04/16/2007 10/01/2007 Overview (04/16/2007): S/P IVC Filter USP (current) use of anticoagulants 02/19/2007 09/27/2008 Depressive disorder, not elsewhere classified 02/14/20 07 01/15/2018 Abnormality of gait 12/24/2006 09/27/20 08 Urinary tract infection, site not specified 12/24/2006 01/15/2018 BENIGN ESSENTIAL HYPERTENSION 12/24/2006 04/17/2016 Overview (12/24/2006): borderline Necrotizing fasciitis 2018 Type 2 diabetes mellitus Encounters Date Type Department Care Team Description 09/07/2024 Hospital/[facility] Telepho ne Encounter [facility] [address] [place] [address] Yen Hernandez RN Pre Procedure (PVP) 09/07/[address] [address] Franklin Squires MD Form (Case communication and Plan of Care.) 09/04/2024 Anticoagulation (warfarin) [address] [address] , [facility] Anticoagulation (Acelis) 09/03/2024 1:53 PM CDT - 09/03/2024 11:59 PM CDT Hospital Encounter [address] [address] Wound infection 09/03/2024 Travel 09/03/[address] [phone] [place] [address] [facility] Refill Request (Warfarin) 09/02/[address] [address] Corrie Gomez, FRUIT CHECKER Appointment 09/01/[address] [address] Franklin Squires MD Refill Request (Oxycodone) 08/30/[address] [address] Franklin Squires MD Refill Request (Famotidine, Aripiprazole) 08/29/2024 Anticoagulation (warfarin) [address] [place] [address] , [facility] Anticoagulation (Acelis) 08/28/[address] [facility] [address] Franklin Squires MD Form (Case communication) 08/27/2024 11:25 AM CDT - 08/27/2024 11:59 PM CDT Hospital Encounter [facility] [address] [facility] [place] [address] Wound infection (Primary Dx) 08/27/2024 Travel 08/25/2024 Hospital/[facility] Telepho ne Encounter [address] [address] Yen Hernandez RN Pre Procedure (PVP) 08/21/2024 1:00 PM CDT Nurse/Clinic Staff Only [address] [address] Nurse/Clinic Staff Only 08/21/2024 Travel 08/21/2024 Anticoagulation (warfarin) [address] [address] , [facility] Anticoagulation (Acelis) 08/20/2024 11:27 AM CDT - 08/20/2024 11:59 PM CDT Hospital Encounter [address] [place] [address] Wound infection (Primary Dx) 08/19/2024 3:00 PM CDT Nurse/Clinic Staff Only [address] [address] Nurse/Clinic Staff Only (Cath Change ) 08/19/[address] [address] Diane Charles MD Appointment 08/19/2024 Travel 08/18/[address] [place] [address] Franklin Squires MD Questions 08/14/2024 Nurse Triage [address] [place] [address] Franklin Squires MD Catheter Problem 08/14/2024 Anticoagulation (warfarin) [address] [place] [address] 1, [facility] Anticoagulation (Acelis) 08/13/2024 11:23 AM CDT - 08/13/2024 11:59 PM CDT Hospital Encounter [facility] [address] [facility] [place] [address] Wound infection 08/13/2024 Travel 08/13/2024 [facility] Telepho ne Encounter [address] [place] [address] Yen Hernandez RN Pre Procedure (PVP) 08/07/2024 Anticoagulation (warfarin) [address] [address] 1, [facility] Anticoagulation (Acelis) 08/06/2024 11:27 AM CDT - 08/06/2024 11:59 PM CDT Hospital Encounter [facility] [address] [facility] [place] [address] Wound infection (Primary Dx) 08/06/2024 Travel 08/06/2024 [facility] Telepho ne Encounter [facility] [address] [facility] [address] Yen Hernandez RN Pre Procedure (PVP) 08/04/[address] [place] [address] Franklin Squires MD Form 07/31/2024 Anticoagulation (warfarin) [address] [place] [address] 1, [facility] Anticoagulation (Acelis) 07/30/2024 11:25 AM CDT - 07/30/2024 11:59 PM CDT Hospital Encounter [facility] [address] [facility] [place] [address] Wound infection (Primary Dx) 07/30/2024 Hospital/[facility] Telepho ne Encounter [facility] [address] [place] [address] Yen Hernandez, VALERIE Pre Procedure (PVP) 07/29/2024 1:30 PM CDT Nurse/Clinic Staff Only [facility] [address] [place] [address] Nurse/Clinic Staff Only (Suprapubic Cath) 07/29/[address] [facility] [address] [place] [address] Franklin Squires MD Refill Request (Oxycodone) 07/29/2024 Travel 07/27/2024 Anticoagulation (warfarin) [facility] [address] [place] [address] 1, [facility] Anticoagulation (Acelis) 07/24/[address] [facility] [address] [place] [address] Franklin Squires MD Anticoagulation (new med) 07/23/2024 8:46 AM CDT - 07/23/2024 2:33 PM CDT Hospital Encounter [facility] [address] [place] [address] Yudith Mcgraw NP Wound infection (Primary Dx) Discharge Disposition: Home Health 07/23/[address] [facility] [address] [place] [address] Yudith Mcgraw NP 1 scan: INFUSION CEFEPIME 2 MG 07/23/2024 Travel 07/22/2024 Telephone [facility] [address] [place] [address] Yen Hernandez, RN Appointment 07/22/[address] [facility] [address] [place] [address] Jennyfer Penny, RN 07/15/[address] [facility] [address] [place] [address] Franklin Squires MD Anticoagulation (Order renewal) 07/15/2024 Anticoagulation (warfarin) [facility] [address] [place] [address] , [facility] Anticoagulation (Acelis ) 07/14/[address] [facility] [address] [place] [address] Franklin Squires MD Form (Case Communication- Major drug interactions-( Warfarin) - Home Health Certification and Plan of Care - 07/08/2024-09/05/2024) 07/14/[address] [place] [address] Franklin Squires MD Refill Request (Bupropion) 07/09/2024 Orders Only [facility] Scanner 1 scan: (1-Ord) [facility], CT PELVIS W CON, 07/09/2024 07/08/2024 1:30 PM CDT Nurse/Clinic Staff Only [address] [address] Nurse/Clinic Staff Only (Cath Change ) 07/08/2024 Travel 07/07/[address] [address] Franklin Squires MD Refill Request (Donepezil) 07/02/2024 1:30 PM CDT Office Visit [address] [address] Franklin Squires MD Medication Management 07/02/2024 Travel 07/01/2024 Anticoagulation (warfarin) [address] [place] [address] 1, [facility] Anticoagulation (Acelis) 06/17/2024 Anticoagulation (warfarin) [address] [place] [address] 1, [facility] Anticoagulation (acelis) 06/11/[address] [place] [address] Franklin Squires MD Refill Request (Warfarin) from Last 3 Months Immunizations Name Administration Dates Next Due COVID-19 vaccine ([employer] [place] AB NTech 30mcg/0.3mL) 12YO+ BIVALENT PF, MDV 10/22/2022 COVID-19 vaccine ([employer] NTech 30mcg/0.3mL) PF, MDV 01/25/2021,01/02/2021 Influenza A [...] 0 12/19/2023 Social Connections Answer Date Recorded Do you often feel lonely or isolated from those around you? 0 02/15/2024 Financial Resource Strain Answer Date R ecorded Difficulty of Paying Living Expenses 3 05/08/2023 Difficulty of Paying Living Expenses Not on file 05/08/2023 Food Insecurity Answer Date Recorded Do you worry your food will run out before you are able to buy more? 1 02/15/2024 Transportation Needs Answer Date Record ed Does lack of transportation keep you from medica l appointments? 1 02/15/2024 Does lack of transportation keep you from work, meetings or getting things that you need? 1 02/15/2024 Housing Stability Answer Date Recorded What is your housing situation today? 1 02/15/2024 Sex and Gender Information Value Date Recorded [...] Care Team (Late st Contact Info) Description 09/10/2024 1:15 PM CDT Office Visit [facility] [address] [place] [address] Diane Charles MD [address] [place] [address] 09/10/2024 2:00 PM CDT Appointment [facility] [address] [place] [address] 10/01/2024 1:50 PM FILLING STATION ATTENDANT Office Visit [facility] [address] [place] [address] Franklin Squires MD [address] [place] [address] Health Maintenance Due Date Last Done Comments [...] Associated Diagnosis Comments HOME MONITOR AC Routine 09/04/2024 12:00 AM CDT CBC WITH AUTO DIFFERENTIAL Today 09/03/2024 2:00 PM CDT Wound infection BASIC METABOLIC PANEL Today 09/03/2024 2:00 PM CDT Wound infection CBC WITH AUTO DIFFERENTIAL Today 09/03/2024 2:00 PM CDT Wound infection HOME MONITOR AC Routine 08/29/2024 12:00 AM CDT HOME MONITOR AC Routine 08/21/2024 12:00 AM [...] MONITOR AC Routine 06/17/2024 12:00 AM CDT from Last 3 Months Results * (ABNORMAL) HOME MONITOR AC (09/04/2024 12:00 AM CDT) Only the most recent of10 resultswithin the time period is included. PATIENT REPORTED HOME INR 1.6(L) 2.00 - 3.00 [facility] MONITORING 09/04/2024 Franklin Squires MD OTHER [facility] [address] [place] [address] * (ABNORMAL) CBC WITH AUTO DIFFERENTIAL (09/03/2024 2:00 PM CDT) Only the most recent of4 resultswithin the time period is included. WHITE BLOOD COUNT 7.0 4.5 - 11.0 thou/cu mm 09/03/2024 2:53 PM T [facility] RED BLOOD COUNT 4.30 4.30 - 5.90 mil/cu mm 09/03/2024 2:53 PM [facility] HEMOGLOBIN 13.6 13.5 - 17.5 g/dL 09/03/2024 2:53 PM [facility] HEMATOCRIT 40.3 37.0 - 53.0 % 09/03/2024 2:53 PM [facility] MCV 94 80 - 100 fL 09/03/2024 2:53 PM [facility] MCH 31.6 26.0 - 34.0 pg 09/03/2024 2:53 PM [facility] MCHC 33.7 32.0 - 36.0 g/dL 09/03/2024 2:53 PM [facility] RDW 14.9 11.5 - 15.5 % 09/03/2024 2:53 PM [facility] PLATELET COUNT 131(L) 140 - 440 thou/cu mm 09/03/2024 2:53 PM [facility] MPV 11.3(H) 6.5 - 11.0 fL 09/03/2024 2:53 PM [facility] % NEUT 63.0 % 09/03/2024 2:53 PM [facility] % LYMPH 24.9 % 09/03/2024 2:53 PM CDT [facility] % MONO 9.7 % 09/03/2024 2:53 PM CDT [facility] % EOS 2.1 % 09/03/2024 2:53 PM CDT [facility] % BASO 0.3 % 09/03/2024 2:53 PM CDT [facility] ABSOLUTE NEUTROPHILS 4.4 1.7 - 7.0 thou/cu mm 09/03/2024 2:53 PM CDT [facility] ABSOLUTE LYMPHOCYTES 1.8 0.9 - 2.9 thou/cu mm 09/03/2024 2:53 PM CDT [facility] ABSOLUTE MONOCYTES 0.7 <0.9 thou/cu mm 09/03/2024 2:53 PM CDT [facility] ABSOLUTE EOSINOPHILS 0.2 <0.5 thou/cu mm 09/03/2024 2:53 PM CDT [facility] ABSOLUTE BASOPHILS 0.0 <0.3 thou/cu mm 09/03/2024 2:53 PM CDT [facility] Blood BLOOD SPECIMEN / Unknown Line/Port / Unknown 09/03/2024 2:00 PM CDT 09/03/2024 2:33 PM CDT [facility] - 09/03/2024 2:53 PM CDT Fax results to [phone] Yudith Mcgraw NP HEMATOLOGY Performing Organization Address City/State/[facility] Co de Phone Number [facility] [address] [place] [phone] * (ABNORMAL) BASIC METABOLIC PANEL (09/03/2024 2:00 PM CDT) Only the most recent of5 resultswithin the time period is included. SODIUM 136 136 - 145 mmol/L 09/03/2024 2:50 PM CDT [facility] POTASSIUM 3.9 3.5 - 5.1 mmol/L 09/03/2024 2:50 PM CDT [facility] CHLORIDE 97(L) 98 - 107 mmol/L 09/03/2024 2:50 PM [facility] CO2,TOTAL 28 22 - 29 mmol/L 09/03/2024 2:50 PM [facility] ANION GAP 11 5 - 18 09/03/2024 2:50 PM [facility] GLUCOSE 126(H) 70 - 99 mg/dL 09/03/2024 2:50 PM [facility] CALCIUM 9.6 8.8 - 10.2 mg/dL 09/03/2024 2:50 PM [facility] BUN 21 8 - 23 mg/dL 09/03/2024 2:50 PM [facility] CREATININE 0.69(L) 0.70 - 1.20 mg/dL 09/03/2024 2:50 PM [facility] BUN/CREAT RATIO 30(H) 10 - 2:50 PM [facility] eGFR >90 >90 mL/min/1.7 3m2 09/03/2024 2:50 PM [facility] Comment:As of 2022, eG FR is calculated by the CKD-EPI creatinine equation without race adjustment. ??eGFR can be influenced by muscle mass, exercise, and diet. ??The reported eGFR is an estimation only and is only applicable if the renal function is stable. Blood BLOOD SPECIMEN / Unknown Line/Port / Unknown 09/03/2024 2:00 PM CDT 09/03/2024 2:37 PM CDT Yudith Mcgraw NP CHEMISTRY [facility] [address] [place] [address] * EXTRA TUBE LAVENDER (07/23/2024 10:59 AM CDT) Blood BLOOD SPECIMEN / Unknown Extra Tube / Unknown 07/23/2024 10:59 AM CDT 07/23/2024 11:06 AM CDT Doctor Unknown LABORATORY [facility] [address] [place] [address] * EXTRA TUBE BLUE (07/23/2024 10:59 AM CDT) Blood BLOOD SPECIMEN / Unknown Extra Tube / Unknown 07/23/2024 10:59 AM CDT 07/23/2024 11:06 AM CDT Doctor Unknown LABORATORY Performing Organization Address City/[facility] Co de Phone Number [facility] [address] [facility] [place] [address] * XR CHEST 1 VIEW PORTABLE (07/23/2024 [...] 100 - 199 mg/dL 07/02/2024 3:04 PM [facility] Comment: Cholesterol, Total Reference Ranges Desirable <200 mg/dL Borderline 200-239 mg/dL High >=240 mg/dL TRIGLYCERIDES 58 <150 mg/dL 07/02/2024 3:04 PM [facility] HDL CHOLESTEROL 56 >40 mg/dL 3:04 PM [facility] NON-HDL CHOLESTEROL 66 <145 mg/dl 07/02/2024 3:04 PM [facility] CHOL/HDL RATIO 2.18 <4.50 07/02/2024 3:04 PM [facility] LDL CHOLESTEROL 54 <=130 mg/dL 07/02/2024 3:04 PM [facility] VLDL CHOLESTEROL 12 <=30 mg/dL 07/02/2024 3:04 PM T [facility] PROVIDER ORDERED STATUS RANDOM 07/02/2024 3:04 PM [facility] Blood BLOOD SPECIMEN / Unknown Venipuncture / Unknown 07/02/2024 2:14 PM CDT 07/02/2024 2:14 PM CDT Franklin Squires MD CHEMISTRY [facility] [address] [place] [address] * (ABNORMAL) CBC W PLT NO DIFF (07/02/2024 2:14 PM CDT) WHITE BLOOD COUNT 8.5 4.5 - 11.0 thou/cu mm 07/02/2024 2:58 PM [facility] RED BLOOD COUNT 4.75 4.30 - 5.90 mil/cu mm 07/02/2024 2:58 PM [facility] HEMOGLOBIN 14.1 13.5 - 17.5 g/dL 07/02/2024 2:58 PM [facility] HEMATOCRIT 42.2 37.0 - 53.0 % 07/02/2024 2:58 PM [facility] MCV 89 80 - 100 fL 07/02/2024 2:58 PM [facility] MCH 29.7 26.0 - 34.0 pg 07/02/2024 2:58 PM [facility] MCHC 33.4 32.0 - 36.0 g/dL 07/02/2024 2:58 PM [facility] RDW 18.3(H) 11.5 - 15.5 % 07/02/2024 2:58 PM [facility] PLATELET COUNT 159 140 - 440 thou/cu mm 07/02/2024 2:58 PM [facility] MPV 10.7 6.5 - 11.0 fL 07/02/2024 2:58 PM [facility] Blood BLOOD SPECIMEN / Unknown Venipuncture / Unknown 07/02/2024 2:14 PM CDT 07/02/2024 2:14 PM CDT Franklin Squires MD HEMATOLOGY Performing Organization Address [facility] de Phone Number [facility] [address] [place] [address] * HEMOGLOBIN A1C MONITORING (POCT) (07/02/2024 2:14 PM CDT) HEMOGLOBIN A1C MONITORING (POCT) 5.9 <=6.4 % 07/02/2024 2:49 PM CDT [facility] Blood BLOOD SPECIMEN / Unknown Venipuncture / Unknown 07/02/2024 2:14 PM CDT 07/02/2024 2:14 PM CDT Narrative [facility] - 07/02/2024 2:49 PM CDT [...] Franklin Squires MD CHEMISTRY Performing Organization Address [facility] Co de Phone Number [facility] [address] [place] [address] from Last 3 Months Additional Health Concerns [...] 12 months since positive culture): resides in acute/m[facility]p care, receiving hemodialysis, has chronic open wounds/skin damage, has long-term percutaneous indwelling medical devices Exclusions for nares collection (if <12 months since positive culture) include all of the previous exclusions plus patients on antibiotics 7 days prior to collection 03/13/2018 03/20/2024 Advance Directives Documents on File Type Date Recorded 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 Head Turbine Operator Expl anation Treatment Guidelines 08/04/2024 Healthcare Directive [...] Code Status Discussion: Reviewed Preferences Care Teams Cutter Wet Machine Relationship Specialty Start Date End Date Franklin Squires MD [address] [place] [address] PCP - General Family Practice 10/18/15 Zelalem Cohen MD Physical Therapist 03/13/12 May Randle)MD Physical Medicine and Rehabilitation 03/13/12 Luana, FAUSTINO Krueger [address] [facility] [place] [address] Hat Binder 05/03/17 Diane Charles MD 100 [place] [address] Surgery - Urology 01/17/23 Julia Ware, RN [address] [place] [address] Registered Nurse 07/17/23
--- OUTSIDE RECORDS SUMMARY | 2024-09-07 12:43 | XMS_ITS | Clinical Summary ---
Author Organization [email or web address] Address [address] [place] [address] Care Team Providers Care Agency Appointments Supervisor Name Role Phone Franklin Squires MD Primary Care Provider [phone] Source Comments You are receiving this document [...] for each transition of care or referral. 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 0 [...] Comments Blood Pressure 120/63 01/18/2022 12:59 PM STABLE MANAGER Pulse 87 01/18/2022 12:59 PM STABLE MANAGER Temperature 36.3 ??C (97.4 ??F) 01/18/2022 [...] this topic Medical Devices Implanted Type Area Research Director Device Identifier Shelf Expiration Date Model / Serial / Lot [id number] 4ml Tisseel Explanted:([place] ntity not on file) BIOLOGIC N/A: NECK Lynne Fenwall 09/10/2011 [id number] / [id number] / [id number] Description:posterior Cath Intrathecal Indura - [id number] Implanted:Qty: 1 on 05/09/2010 at [facility] DEVICE Right: LUMBAR SPINE benchee 01/18/2012 8709 / N/A / [id number] 5 Cath Intrathecal Indura - [id number] Implanted:Qty: 1 on 05/29/2010 at [facility] DEVICE benchee 8709 / / Scr Indira Conic 7.3x80 - [id number] Implanted:Qty: 1 on 03/13/2011 at [facility] DEVICE Right: FEMUR DISTAL Synthes [facility] 0 / NONE / NONE Plt Lcp Cndl Rt 4.5x170 6h - [id number] Implanted:Qty: 1 on 03/13/2011 at [facility] DEVICE Right: FEMUR DISTAL [employer] [place] 222.656 / NONE / NONE Description:6 hole 170mm rig ht 4.5mm lcp condylar plate Scr Didier Ss Sftp 4.5x40 - [id number] Implanted:Qty: 1 on 03/13/2011 at [facility] DEVICE Left: FEMUR DISTAL [employer] [place] 214.840 / NONE / NONE Scr Didier Ss Sftp 4.5x50 - [id number] Implanted:Qty: 1 on 03/13/2011 at [facility] DEVICE Left: FEMUR DISTAL [employer] [place] 214.850 / NONE / NONE Scr Indira Lk 5.0x80 - [id number] Implanted:Qty: 2 on 03/13/2011 at [facility] DEVICE Left: FEMUR DISTAL [employer] [place] 02.205.08 0 / NONE / NONE Scr Indira Lk 5.0x85 - [id number] Implanted:Qty: 2 on 03/13/2011 at [facility] DEVICE Left: FEMUR DISTAL [employer] [place] 02.205.08 5 / NONE / NONE Scr Lk Sftp T25 5.0x50 - [id number] Implanted:Qty: 1 on 03/13/2011 at [facility] DEVICE Left: FEMUR DISTAL [employer] [place] 212.219 / NONE / NONE Scr Lk Sftp T25 5.0x60 - [id number] Implanted:Qty: 1 on 03/13/2011 at [facility] DEVICE Left: FEMUR DISTAL [employer] [place] 212.221 / NONE / NONE Scr Indira Conic 7.3x85 - [id number] Implanted:Qty: 1 on 03/13/2011 at [facility] DEVICE Left: FEMUR DISTAL [employer] [place] 02.207.28 5 / NONE / NONE Plt Lcp Cndl Lt 4.5x170 6h - [id number] Implanted:Qty: 1 on 03/13/2011 at [facility] DEVICE Left: FEMUR DISTAL [employer] [place] 222.657 / NONE / NONE Description:6 hole 170mmleng th left 4.5mm lcp condylar plate. Scr Didier Sftp 3.5x60 F-Thrd - [id number] Implanted:Qty: 1 on 03/13/2011 at [facility] DEVICE Left: TIBIA PROXIMAL [employer] [place] 204.860 / NONE / NONE Scr Star Lk Sftp 3.5x32 - [id number] Implanted:Qty: 1 on 03/13/2011 at [facility] DEVICE Left: TIBIA PROXIMAL [employer] [place] 212.112 / NONE / NONE Scr Star Lk Sftp 3.5x55 - [id number] Implanted:Qty: 2 on 03/13/2011 at [facility] DEVICE Left: TIBIA PROXIMAL [employer] [place] 212.123 / NONE / NONE Scr Star Lk Sftp 3.5x60 - [id number] Implanted:Qty: 2 on 03/13/2011 at [facility] DEVICE Left: TIBIA PROXIMAL [employer] [place] 212.124 / NONE / NONE Plt Lcp M/Prox Lt 3.5x94 4h - [id number] Implanted:Qty: 1 on 03/13/2011 at [facility] DEVICE Left: TIBIA PROXIMAL [employer] [place] 239.955 / NONE / NONE Scr Didier Ss Sftp 4.5x36 - [id number] Implanted:Qty: 1 on 03/13/2011 at [facility] DEVICE Right: FEMUR DISTAL [employer] [place] 214.836 / NONE / NONE Scr Didier Ss Sftp 4.5x44 - [id number] Implanted:Qty: 1 on 03/13/2011 at [facility] DEVICE Right: FEMUR DISTAL [employer] [place] 214.844 / NONE / NONE Scr Indira Lk 5.0x75 - [id number] Implanted:Qty: 1 on 03/13/2011 at [facility] DEVICE Right: FEMUR DISTAL [employer] [place] 02.205.07 5 / NONE / NONE Scr Indira Lk 5.0x85 - [id number] Implanted:Qty: 2 on 03/13/2011 at [facility] DEVICE Right: FEMUR DISTAL [employer] [place] 02.205.08 5 / NONE / NONE Scr Lk Sftp T25 5.0x44 - [id number] Implanted:Qty: 1 on 03/13/2011 at [facility] DEVICE Right: FEMUR DISTAL [employer] [place] 212.216 / NONE / NONE Scr Lk Sftp T25 5.0x65 - [id number] Implanted:Qty: 1 on 03/13/2011 at [facility] DEVICE Right: FEMUR DISTAL [employer] [place] 212.222 / NONE / NONE Plt Lp T Ti Str 4h - [id number] Implanted:Qty: 3 on 07/28/2014 by Cooper Shelley MD at [facility] DEVICE Right: SKULL [employer] [place] 421.504 / / Scr Matrix Sfdr 4mm - [id number] Implanted:Qty: 6 on 07/28/2014 by Cooper Shelley MD at [facility] DEVICE Right: SKULL [employer] [place] 04.503.10 4.01 / / Lead Linear 3-4 8 Contact 50cm - [id number] Implanted:Qty: 1 on 03/08/2016 by Zelalem Cohen DO at [facility] DEVICE N/A: OTHER-SEE DESCRIPTION [facility] 09/10/2017 [id number] 2500 / / [id number] Description:LUMBAR Lead Linear 3-4 8 Contact 50cm - [id number] Implanted:Qty: 1 on 03/08/2016 by Zelalem Cohen DO at [facility] DEVICE N/A: OTHER-SEE DESCRIPTION [facility] 09/10/2017 [id number] 2500 / / [id number] Description:LUMBAR Lead Linear 3-4 8 Contact 50cm - [id number] Implanted:Qty: 1 on 03/08/2016 by Zelalem Cohen DO at [facility] DEVICE N/A: OTHER-SEE DESCRIPTION [facility] 09/10/2017 [id number] 2500 / / [id number] Description:LUMBAR Lead Linear 3-4 8 Contact 50cm - [id number] Implanted:Qty: 1 on 03/08/2016 by Zelalem Cohen DO at [facility] DEVICE N/A: OTHER-SEE DESCRIPTION [facility] 09/10/2017 [id number] 2500 / / [id number] Description:LUMBAR Lead Linear 3-4 8 Contact 50cm - [id number] Implanted:Qty: 1 on 05/24/2016 by Zelalem Cohen DO at [facility] DEVICE N/A: SPINE LUMBAR POSTERIOR [facility] 01/31/2018 [id number] 2500 / [id number] / Lead Linear 3-4 8 Contact 50cm - [id number] Implanted:Qty: 1 on 05/24/2016 by Zelalem Cohen DO at [facility] DEVICE N/A: SPINE LUMBAR POSTERIOR [facility] 04/26/2018 [id number] 2500 / [id number] / Lead Linear 3-4 8 Contact 50cm - [id number] Implanted:Qty: 1 on 05/24/2016 by Zelalem Cohen DO at [facility] DEVICE N/A: SPINE LUMBAR POSTERIOR [facility] 04/26/2018 [id number] 2500 / [id number] / Lead Linear 3-4 8 Contact 50cm - [id number] Implanted:Qty: 1 on 05/24/2016 by Zelalem Cohen DO at [facility] DEVICE N/A: SPINE LUMBAR POSTERIOR [facility] 04/26/2018 [id number] 2500 / [id number] / Generator Pulse Spectra - [id number] Implanted:Qty: 1 on 05/24/2016 by Zelalem Cohen DO at [facility] DEVICE N/A: SPINE LUMBAR POSTERIOR [facility] 05/08/2018 [id number] 20 / [id number] / [id number] [place] [employer] - [id number] Implanted:Qty: 1 on 05/24/2016 by Zelalem Cohen DO at [facility] DEVICE N/A: SPINE LUMBAR POSTERIOR [facility] 05/02/2018 [id number] 60 / / [id number] [place] [employer] - [id number] Implanted:Qty: 1 on 05/24/2016 by Zelalem Cohen DO at [facility] DEVICE N/A: SPINE LUMBAR POSTERIOR [facility] 02/28/2018 [id number] 60 / / [id number] Procedures Procedure Name Priority Date/Time Associated Diagnosis Comments CREATININE/GFR, WB POC Routine 01/06/2016 12:04 PM STABLE MANAGER Back pain, 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 [phone] * (ABNORMAL) HGB A1C (07/29/2014 3:19 AM CDT) Hgb A1c 6.4(H) 4.3 - 6.1 % [facility] Comment: The usual A1C goal for people with diabetes, age 18-75, is <8.0%. Physicians may recommend a higher or lower goal for specific individuals. 07/29/2014 3:19 AM CDT 07/29/2014 3:22 AM CDT Narrative [facility] - 07/29/2014 12:53 PM CDT [facility], [address] [place] [address] ??[id number] [place] Wei PA-C LAB_[address] [address] from Last 3 Months or Most Recently [...] 5:44 PM 07/28/2014 6:50 PM Care Teams Agency Appointments Supervisor Relationship Specialty Start Date End Date Franklin Squires MD [address] [place] [address] AvLES Wong [phone] PCP - General Family Practice 03/08/16
--- OUTSIDE RECORDS SUMMARY | 2024-09-07 12:43 | XMS_ITS ---
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 Treatments may have been administered in another system. Resolved Problems Problem Noted Date Diagnosed Date Resolved Date Gait abnormality 01/17/2012 02/09/2015 Back pain 01/17/2012 02/09/2015 Paraplegia 04/04/2011 02/09/2015 Osteoporosis 03/06/2011 02/09/2015 Urinary tract infection 12/24/200603/11
--- OUTSIDE RECORDS SUMMARY | 2024-09-07 12:43 | XMS_ITS | Continuity of Care Document ---
Author Name [facility] Organization [facility] Care Team Providers Care Trailer Chief Name Role Phone [facility] Unavailable Unavailable Problems Combined list of problems from 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 It does not include entries that were removed or entered in error. Problem Status Onset Date Problem Type Date of Resolution Comments Source Abnormal liver function Active Condition [facility] Anemia (SCT 393565301) Active Condition [facility] Anxiety ([facility] 31147684) Active Condition [facility] Autonomic dysreflexia Active Condition [facility] Chronic Pain Syndrome (SCT 629430185) Active Condition [facility] Colostomy present Active Condition [facility] Constipation (S[facility] 98948163) Active Condition [facility] Continuous opioid dependence Active Condition [facility] COPD - Chronic Obstructive Pulmonary Disease ([facility]CT 62146024) Active Condition [facility] Dementia Active Condition [facility] Depression ([facility] 20441618) Active Condition [facility] Diabetes Mellitus Type 2 (SCT 42273266) Active Condition [facility] Ependymoma of spinal cord Active Condition [facility] Hearing Loss (SCT 95002782) Active Condition [facility] History of Deep Vein Thrombosis (SCT 008770777) Active Condition [facility] History of pressure injury Active Condition [facility] HTN - Hypertension (SCT 10610192) Active Condition [facility] Hyperlipidemia (S[facility] 33103822) Active Condition [facility] Hyponatremia Active [facility] Long-term current use of anticoagulant Active Condition [facility] Neurogenic Bladder ([facility] 562212213) Active Condition [facility] Neurogenic bowel Active Condition [facility] Osteoporosis ([facility] 31785627) Active Condition [facility] Paraplegia Active Condition [facility] Spasticity Active Condition [facility] Suprapubic urinary catheter in situ Active Condition [facility] Supraventricular tachycardia Active Condition [facility] Tinnitus ([facility] 10802880) Active Condition [facility] Vitamin D Deficiency ([facility] 4890534) Active Condition [facility] Diagnosis: ICD-10-CM Z73.6 Limitation of activities due to disability Active Diagnosis [facility] Diagnosis: ICD-10-CM G82.20 Paraplegia, unspecified Active Diagnosis [facility] Medications Combined list of outpatient medications from Department of Defense and [facility] Affairs facilities.Medications provided include [...] BESYLATE (AMLODIPINE BESYLATE), 5 MG, TABLET, ORAL, [employer] 1000 ea. BOTTLE Active [id number] 4 2023 90 Pharmac y Data Transac tion Service Facilit y AMLODIPINE BESYLATE (amlodipine besylate), 5 MG, TABLET, ORAL, [employer], 1000 ea. BOTTLE Active [id number] 4 2023 90 Pharmac y Data Transac tion Service Facilit y AMLODIPINE BESYLATE 2.5MG TAB TAKE TWO TABLETS BY MOUTH EVERY MORNING ORAL ACTIVE Jagdish BARRETT 2022 [facility] AMOX TR-POTASSIU M CLAVULANATE (AMOXICILLI N/POTASSIUM CLAV), 875-125 MG, TABLET, ORAL, [employer], 20 ea. BOTTLE Active [id number] 2022 14 Pharmac y Data Transac tion Service Facilit y AMOXICILLIN -CLAVULANAT E POTASS (amoxicilli n/potassium clavulanate ), 875-125 MG, TABLET, ORAL, [employer],, 20 ea. BOTTLE Active [id number] 2023 20 Pharmac y Data Transac tion Service Facilit y AMOXICILLIN -CLAVULANAT E POTASS (amoxicilli n/potassium clavulanate ), 875-125 MG, TABLET, ORAL, [employer] [facility],, 20 ea. BOTTLE Active [id number] 2023 56 Pharmac y Data Transac tion Service Facilit y ARIPIPRAZOL E (aripiprazo le), 2 MG, TABLET, ORAL, [employer], 500 ea. BOTTLE Active [id number] 2023 180 Pharmac y Data Transac tion Service Facilit y ARIPIPRAZOL E (aripiprazo le), 2 MG, TABLET, ORAL, [employer], 500 ea. BOTTLE Active [id number] 2023 180 Pharmac y Data Transac tion Service Facilit y ARIPIPRAZOL E TAB TAKE 2MG BY MOUTH TWICE A DAY ORAL ACTIVE Jey HANSON TAZEvelyn Clemente 2021 [facility] ATIVAN (LORAZEPAM) , 0.5 MG, TABLET, ORAL, [employer], 100 ea. BOTTLE Active [id number] 2023 120 Pharmac y Data Transac tion Service Facilit y ATORVASTATI N CA 80MG TAB TAKE ONE-HALF TABLET BY MOUTH EVERY DAY ORAL ACTIVE Jey HANSON Bryn 2021 [facility] ATORVASTATI N CALCIUM (atorvastat in calcium), 40 MG, TABLET, ORAL, [employer]ARMA I, 1000 ea. BOTTLE Active [id number] 2023 90 Pharmac y Data Transac tion Service Facilit y ATORVASTATI N CALCIUM (atorvastat in calcium), 40 MG, TABLET, ORAL, [employer]ARMA I, 1000 ea. BOTTLE Active [id number] 2023 90 Pharmac y Data Transac [...] ORAL, [employer]AVEL [employer]ARMACEU, 60 ea. BOTTLE Active [id number] 2023 180 Pharmac y Data Transac tion Service Facilit y BUPROPION HCL SR (bupropion HCl), 150 MG, TAB SR 12H, ORAL, [employer], 60 ea. BOTTLE Active [id number] 2023 180 Pharmac y Data Transac [...] ORAL, [employer], 50 ea. BOTTLE Active [id number] 2023 70 Pharmac y Data Transac tion Service Facilit y DONEPEZIL HCL (DONEPEZIL HCL), 5 MG, TABLET, ORAL, [employer] 1000 ea. BOTTLE Active [id number] 2023 90 Pharmac y Data Transac tion Service Facilit y DONEPEZIL HCL (DONEPEZIL HCL), 5 MG, TABLET, ORAL, [employer] 1000 ea. BOTTLE Cancele d [id number] : 2023 0 Pharmac y Data Transac tion Service Facilit y DONEPEZIL HCL (DONEPEZIL HCL), 5 MG, TABLET, ORAL, [employer] 1000 ea. BOTTLE Active [id number] 2023 90 Pharmac y Data Transac tion Service Facilit y DONEPEZIL HCL 10MG TAB TAKE ONE-HALF TABLET BY MOUTH EVERY DAY ORAL ACTIVE Jey HANSON Bryn 2021 [facility] DULOXETINE HCL (duloxetine HCl), 60 MG, CAPSULE DR, ORAL, [employer] 1000 ea. BOTTLE Active [id number] 2023 180 Pharmac y Data Transac tion Service Facilit y DULOXETINE HCL (duloxetine HCl), 60 MG, CAPSULE DR, ORAL, [employer] 1000 ea. BOTTLE Active [id number] 2023 180 Pharmac y Data Transac tion Service Facilit y DULOXETINE HCL 30MG CAP,EC TAKE 2 CAPSULES BY MOUTH TWICE A DAY ORAL ACTIVE GRANDJey PRADHAN M 2021 [facility] FAMOTIDINE (famotidine ), 20 MG, TABLET, ORAL, [employer] 1000 ea. BOTTLE Active [id number] 2023 180 Pharmac y Data Transac tion Service Facilit y FAMOTIDINE 20MG TAB TAKE ONE TABLET BY MOUTH TWICE A DAY ORAL ACTIVE GRANDIA,C ONALAINAE M 2021 [facility] FUROSEMIDE (furosemide ), 40 MG, TABLET, ORAL, [employer], 1000 ea. BOTTLE Active [id number] 2023 180 Pharmac y Data Transac tion Service Facilit y FUROSEMIDE 40MG TAB TAKE ONE TABLET BY MOUTH TWICE A DAY ORAL ACTIVE MARGIE,C SB M 2021 [facility] GABAPENTIN (gabapentin ), 400 MG, CAPSULE, ORAL, [employer] 500 ea. BOTTLE Active [id number] 2023 270 Pharmac y Data Transac tion Service Facilit y GABAPENTIN (gabapentin ), 400 MG, CAPSULE, ORAL, [employer], 500 ea. BOTTLE Active [id number] 2023 270 Pharmac y Data Transac tion Service Facilit y GABAPENTIN (gabapentin ), 400 MG, CAPSULE, ORAL, [employer], 500 ea. BOTTLE Cancele d [id number] : 2023 0 Pharmac y Data Transac tion Service Facilit y GABAPENTIN 400MG CAP TAKE 1 CAPSULE BY MOUTH THREE TIMES A DAY ORAL ACTIVE GRANDIAJeyE M 2021 [facility] LORAZEPAM (lorazepam) , 0.5 MG, TABLET, ORAL, [employer], 500 ea. BOTTLE Active [id number] 2023 120 Pharmac y Data Transac tion Service Facilit y LORAZEPAM (lorazepam) , 0.5 MG, TABLET, ORAL, [employer], 1000 ea. BOTTLE Active [id number] 2023 120 Pharmac y Data Transac tion Service Facilit y LORAZEPAM (lorazepam) , 0.5 MG, TABLET, ORAL, [employer], 1000 ea. BOTTLE Active [id number] 2023 120 Pharmac y Data Transac tion Service Facilit y LORAZEPAM (lorazepam) , 0.5 MG, TABLET, ORAL, [employer], 1000 ea. BOTTLE Active [id number] 2023 120 Pharmac y Data Transac tion Service Facilit y LORAZEPAM (lorazepam) , 0.5 MG, TABLET, ORAL, [employer], 500 ea. BOTTLE Active [id number] 2023 120 Pharmac y Data Transac tion Service Facilit y LORAZEPAM 0.5MG TAB TAKE ONE TABLET BY MOUTH THREE TIMES A DAY AND TAKE TWO TABLETS BY MOUTH AT BEDTIME ORAL ACTIVE Jagdish BARRETT 2022 [facility] MILK OF MAGNESIA [...] HCL (OXYCODONE HCL), 10 MG, TABLET, ORAL, [employer] 100 ea. BOTTLE Active [id number] 2023 120 Pharmac y Data Transac tion Service Facilit y OXYCODONE HCL (OXYCODONE HCL), 10 MG, TABLET, ORAL, [employer] 100 ea. BOTTLE Active [id number] 2023 120 Pharmac y Data Transac tion Service Facilit y OXYCODONE HCL (OXYCODONE HCL), 10 MG, TABLET, ORAL, [employer] 100 ea. BOTTLE Active [id number] 2023 120 Pharmac y Data Transac tion Service Facilit y OXYCODONE HCL (OXYCODONE HCL), 10 MG, TABLET, ORAL, [employer] 100 ea. BOTTLE Active [id number] 2023 120 Pharmac y Data Transac tion Service Facilit y OXYCODONE HCL (OXYCODONE HCL), 10 MG, TABLET, ORAL, [employer] 100 ea. BOTTLE Active [id number] 2023 120 Pharmac y Data Transac tion Service Facilit y OXYCODONE HCL (OXYCODONE HCL), 10 MG, TABLET, ORAL, [employer] 100 ea. BOTTLE Active [id number] 2023 120 Pharmac y Data Transac tion Service Facilit y OXYCODONE HCL (OXYCODONE HCL), 10 MG, TABLET, ORAL, [employer] 100 ea. BOTTLE Active [id number] 2022 120 Pharmac y Data Transac tion Service Facilit y OXYCODONE HCL 5MG TAB TAKE TWO TABLETS BY MOUTH FOUR TIMES A DAY ORAL ACTIVE Jagdish BARRETT 2022 [facility] POTASSIUM CHLORIDE (potassium chloride), 10 MEQ, TAB ER PRT, ORAL, [employer], 100 ea. BOTTLE Active [id number] 2023 180 Pharmac y Data Transac tion Service Facilit y POTASSIUM CHLORIDE (potassium chloride), 10 MEQ, TAB ER PRT, ORAL, [employer], 100 ea. BOTTLE Active [id number] 2023 180 Pharmac y Data Transac tion Service Facilit y POTASSIUM CHLORIDE (potassium chloride), 20 MEQ, TAB ER PRT, ORAL, [employer], 100 ea. BOTTLE Active [id number] 2023 90 Pharmac y Data Transac tion Service Facilit y POTASSIUM CHLORIDE 20MEQ TAB,SA (DISPERSIBL E) TAKE ONE TABLET BY MOUTH TWICE A DAY ORAL ACTIVE Jey HANSON 2021 [facility] SANTYL (collagenas e Clostridium histolyticu m), 250 UNIT/G, OINT. (G), TOPICAL, WHITLOCK&N/UNI LUIS, 30 g TUBE Cancele d [id number] : 2023 0 Pharmac y Data Transac tion Service Facilit y WARFARIN SODIUM (warfarin sodium), 5 MG, TABLET, ORAL, [employer] 1000 ea. BOTTLE Cancele d [id number] : 2022 0 Pharmac y Data Transac tion Service Facilit y WARFARIN SODIUM (WARFARIN SODIUM), 5 MG, TABLET, ORAL, [employer], 1000 ea. BOTTLE Active [id number] 2023 25 Pharmac y Data Transac tion Service Facilit y WARFARIN SODIUM (WARFARIN SODIUM), 5 MG, TABLET, ORAL, [employer], 1000 ea. BOTTLE Active [id number] 2023 12 Pharmac y Data Transac tion Service Facilit y WARFARIN SODIUM (WARFARIN SODIUM), 5 MG, TABLET, ORAL, [employer], 1000 ea. BOTTLE Active [id number] 2023 40 Pharmac y Data Transac tion Service Facilit y WARFARIN SODIUM (WARFARIN SODIUM), 5 MG, TABLET, ORAL, [employer], 1000 ea. BOTTLE Cancele d [id number] : 2022 0 Pharmac y Data Transac tion Service Facilit y WARFARIN SODIUM (warfarin sodium), 7.5 MG, TABLET, ORAL, [employer], 100 ea. BOTTLE Active [id number] 2023 51 Pharmac y Data Transac tion Service Facilit y WARFARIN SODIUM (warfarin sodium), 7.5 MG, TABLET, ORAL, [employer], 100 ea. BOTTLE Active [id number] 2023 78 Pharmac y Data Transac tion Service Facilit y WARFARIN TAB TAKE 5MG BY MOUTH SUN/THUR S AND TAKE 7.5MG BY MOUTH ALL OTHER DAYS ORAL ACTIVE Jagdish BARRETT 2022 [facility] Allergies, Adverse Reactions, Alerts Combined list of allergies from Department [facility] and [facility] facilities. It does not include entries that were removed or entered in error. Substance Category Reaction Severity Reaction type Status Date Reported Comments Source AMOXICILLIN Propensity to adverse reactions to drug (finding) [facility] METOLAZONE Propensity to adverse reactions to drug (finding) Itching active 2 [facility] IS [facility] MORPHINE Propensity to adverse reactions to drug (finding) Delirium active 2 [facility] IS [facility] PIPERACILLIN Propensity to adverse reactions to drug (finding) Eruption active 2 [facility] IS [facility] SULFA DRUGS Propensity to adverse reactions to drug (finding) Eruption active 2 [facility] IS [facility] TAZOBACTAM SODIUM Propensity to adverse reactions to drug (finding) Eruption active 2 [facility] IS [facility] Immunizations Combined list of available immunizations from the Department of [facility] and [facility] facilities. Immunization Series Date Given Administered By Site Reaction Lot Number CVX Code Drug Trading Analyst Status Comments Source COVID-19 (Ingeny), MRNA, LNP-S, BIVALENT, PF, 30 MCG/0.3 ML DOSE 2021 300 complet ed [facility] INFLUENZA, ADJUVANTED, QUADRIVALENT, PF 2021 205 complet ed [facility] INFLUENZA, UNSPECIFIED FORMULATION 2021 88 complet ed Phyllis's recall [facility] TD (ADULT), 5 LF TETANUS TOXOID, PRESERVATIVE FREE, ADSORBED 2021 113 complet ed [facility] INFLUENZA, ADJUVANTED, QUADRIVALENT, PF 2020 205 complet ed [facility] INFLUENZA, UNSPECIFIED FORMULATION 2020 88 complet ed [facility] COVID-19 (Ingeny), MRNA, LNP-S, PF, 30 MCG/0.3 ML DOSE 3 2020 208 complet ed [facility] COVID-19 (PFIZER), MRNA, LNP-S, PF, 30 MCG/0.3 ML DOSE 2 2020 208 complet ed [facility] COVID-19 (Ingeny), MRNA, LNP-S, PF, 30 MCG/0.3 ML DOSE 1 2020 208 complet ed [facility] INFLUENZA, ADJUVANTED, QUADRIVALENT, PF 2019 205 complet ed [facility] INFLUENZA, ADJUVANTED, TRIVALENT, PF 2018 168 complet ed [facility] INFLUENZA, ADJUVANTED, TRIVALENT, PF 2017 168 complet ed [facility] INFLUENZA, HIGH-DOSE, TRIVALENT, PF 2016 135 complet ed [facility] INFLUENZA, ADJUVANTED, TRIVALENT, PF 2016 168 complet ed [facility] INFLUENZA, HIGH-DOSE, TRIVALENT, PF 2015 135 complet ed [facility] ZOSTER LIVE 2015 121 complet ed [facility] PNEUMOCOCCAL CONJUGATE PCV 13 2014 133 complet ed [facility] INFLUENZA, HIGH-DOSE, TRIVALENT, PF 2014 135 complet ed [facility] INFLUENZA, HIGH-DOSE, TRIVALENT, PF 2013 135 complet ed [facility] INFLUENZA, UNSPECIFIED FORMULATION 2013 88 complet ed [facility] INFLUENZA, SPLIT VIRUS, TRIVALENT, PRESERVATIVE 2012 141 complet ed [facility] ZOSTER LIVE 2012 121 complet ed [facility] INFLUENZA, SPLIT VIRUS, TRIVALENT, PRESERVATIVE 2011 141 complet ed [facility] INFLUENZA, SPLIT VIRUS, TRIVALENT, PF 2010 140 complet ed [facility] PNEUMOCOCCAL POLYSACCHARID E PPV23 2010 33 complet ed [facility] TDAP 2010 115 complet ed [facility] INFLUENZA, SPLIT VIRUS, TRIVALENT, PRESERVATIVE 2009 141 complet ed [facility] NOVEL INFLUENZA-H1N 1-09, ALL FORMULATIONS 2009 128 complet ed [facility] INFLUENZA, SPLIT VIRUS, TRIVALENT, PF 2008 140 complet ed [facility] PNEUMOCOCCAL POLYSACCHARID E PPV23 2008 33 complet ed [facility] INFLUENZA, SPLIT VIRUS, TRIVALENT, PRESERVATIVE 2008 141 complet ed [facility] INFLUENZA, SPLIT VIRUS, TRIVALENT, PRESERVATIVE 2007 141 complet ed [facility] INFLUENZA, SPLIT VIRUS, TRIVALENT, PRESERVATIVE 2005 141 complet ed [facility] INFLUENZA, SPLIT VIRUS, TRIVALENT, PRESERVATIVE 2004 141 complet ed [facility] PNEUMOCOCCAL POLYSACCHARID E PPV23 2004 33 complet ed [facility] INFLUENZA, SPLIT VIRUS, TRIVALENT, PRESERVATIVE 2003 141 complet ed [facility] Results Combined list of recent [...] Feb 05, 2023 03:10 PM Reporting Lab: [facility] [address] Performing Lab: [facility] [address] [facility] BASIC METABOLI C PANEL+MG UREA NITROGEN [MASS/VOLU ME] IN SERUM OR PLASMA 15 mg/dL 8 - 26 02/13 Specimen Type: PLASMA No comment entered. Ordering Provider: ANKUSH BOWMAN Report Released Date/Time: Feb 05, 2023 03:10 PM Reporting Lab: [facility] [address] Performing Lab: [facility] [address] [facility] IS [facility] BASIC METABOLI C PANEL+MG GLUCOSE [MASS/VOLU ME] IN SERUM OR PLASMA 140 mg/dL 70 - 100 02/13 H Specimen Type: PLASMA No comment entered. Ordering Provider: ANKUSH BOWMAN Report Released Date/Time: Feb 05, 2023 03:10 PM Reporting Lab: [facility] [address] Performing Lab: [facility] [address] [place] [facility] BASIC METABOLI C PANEL+MG SODIUM [MOLES/VOL UME] IN SERUM OR PLASMA 135 mmol/L 136 - 145 02/13 L Specimen Type: PLASMA No comment entered. Ordering Provider: ANKUSH BOWMAN Report Released Date/Time: Feb 05, 2023 03:10 PM Reporting Lab: [facility] [address] Performing Lab: [facility] [address] [place] [facility] BASIC METABOLI C PANEL+MG POTASSIUM [MOLES/VOL UME] IN SERUM OR PLASMA 4.0 mmol/L 3.5 - 5.1 02/13 Specimen Type: PLASMA No comment entered. Ordering Provider: ANKUSH BOWMAN Report Released Date/Time: Feb 05, 2023 03:10 PM Reporting Lab: [facility] [address] Performing Lab: [facility] [address] [place] [facility] BASIC METABOLI C PANEL+MG CHLORIDE [MOLES/VOL UME] IN SERUM OR PLASMA 99 mmol/L 98 - 107 02/13 Specimen Type: PLASMA No comment entered. Ordering Provider: ANKUSH BOWMAN Report Released Date/Time: Feb 05, 2023 03:10 PM Reporting Lab: [facility] [address] Performing Lab: [facility] [address] [place] [facility] BASIC METABOLI C PANEL+MG CARBON DIOXIDE, TOTAL [MOLES/VOL UME] IN SERUM OR PLASMA 29 mmol/L 22 - 29 02/13 Specimen Type: PLASMA No comment entered. Ordering Provider: ANKUSH BOWMAN Report Released Date/Time: Feb 05, 2023 03:10 PM Reporting Lab: [facility] [address] Performing Lab: [facility] [address] [place] [facility] BASIC METABOLI C PANEL+MG CALCIUM [MASS/VOLU ME] IN SERUM OR PLASMA 9.2 mg/dL 8.4 - 10.2 02/13 Specimen Type: PLASMA No comment entered. Ordering Provider: ANKUSH BOWMAN Report Released Date/Time: Feb 05, 2023 03:10 PM Reporting Lab: [facility] [address] Performing Lab: [facility] [address] [place] [facility] BASIC METABOLI C PANEL+MG MAGNESIUM [MASS/VOLU ME] IN SERUM OR PLASMA 2.0 mg/dL 1.6 - 2.6 02/13 Specimen Type: PLASMA No comment entered. Ordering Provider: ANKUSH BOWMAN Report Released Date/Time: Feb 05, 2023 03:10 PM Reporting Lab: [facility] [address] Performing Lab: [facility] [address] [place] [facility] BASIC METABOLI C PANEL+MG ANION GAP IN SERUM OR PLASMA 7 mmol/L 5 - 15 02/13 Specimen Type: PLASMA No comment entered. Ordering Provider: ANKUSH BOWMAN Report Released Date/Time: Feb 05, 2023 03:10 PM Reporting Lab: [facility] [address] Performing Lab: [facility] [address] [place] [facility] BASIC METABOLI C PANEL+MG GLOMERULAR FILTRATION RATE/1.73 SQ M.PREDICTE D [VOLUME RATE/AREA] IN SERUM, PLASMA OR BLOOD BY CREATININE -BASED FORMULA (CKD-EPI) >90 60 02/13 Specimen Type: PLASMA No comment entered. Ordering Provider: ANKUSH BOWMAN Report Released Date/Time: Feb 05, 2023 03:10 PM Reporting Lab: [facility] [address] Performing Lab: [facility] [address] [place] [facility] CYSTATIN C WITH EGFR CYSTATIN C [MASS/VOLU ME] IN SERUM OR PLASMA 1.27 mg/L 0.51 - 1.05 02/13 H Specimen Type: PLASMA No comment entered. Ordering Provider: ANKUSH BOWMAN Report Released Date/Time: Feb 05, 2023 03:10 PM Reporting Lab: [facility] [address] Performing Lab: [facility] [address] [place] [facility] CYSTATIN C WITH EGFR CYSTATIN C AND GLOMERULAR FILTRATION RATE BY CYSTATIN C-BASED FORMULA PANEL - SERUM OR PLASMA 53 60 02/13 L Specimen Type: PLASMA No comment entered. Ordering Provider: ANKUSH BOWMAN Report Released Date/Time: Feb 05, 2023 03:10 PM Reporting Lab: [facility] [address] Performing Lab: [facility] [address] [place] [facility] URINALYS IS COLOR OF URINE YELLOW 10/08 Specimen Type: URINE No comment entered. Ordering Provider: ANKUSH BOWMAN Report Released Date/Time: Sep 24, 2022 01:55 PM Reporting Lab: [facility] [address] Performing Lab: [facility] [address] [place] [facility] URINALYS IS SPECIFIC GRAVITY OF URINE 1.023 1.003 - 1.035 10/08 Specimen Type: URINE No comment entered. Ordering Provider: ANKUSH BOWMAN Report Released Date/Time: Sep 24, 2022 01:55 PM Reporting Lab: [facility] [address] Performing Lab: [facility] [address] [place] [facility] URINALYS IS BILIRUBIN. TOTAL [PRESENCE] IN URINE BY TEST STRIP NEGATIVE 10/08 Specimen Type: URINE No comment entered. Ordering Provider: ANKUSH BOWMAN Report Released Date/Time: Sep 24, 2022 01:55 PM Reporting Lab: [facility] [address] Performing Lab: [facility] [address] [place] [facility] URINALYS IS KETONES [MASS/VOLU ME] IN URINE BY TEST STRIP NEGATIVE 10/08 Specimen Type: URINE No comment entered. Ordering Provider: ANKUSH BOWMAN Report Released Date/Time: Sep 24, 2022 01:55 PM Reporting Lab: [facility] [address] Performing Lab: [facility] [address] [place] [facility] URINALYS IS GLUCOSE [MASS/VOLU ME] IN URINE BY TEST STRIP NEGATIVE mg/dL <30 - 30 10/08 Specimen Type: URINE No comment entered. Ordering Provider: ANKUSH BOWMAN Report Released Date/Time: Sep 24, 2022 01:55 PM Reporting Lab: [facility] [address] Performing Lab: [facility] [address] [place] [facility] URINALYS IS PROTEIN [MASS/VOLU ME] IN URINE BY TEST STRIP 30 mg/dL <20 - 20 10/08 Specimen Type: URINE No comment entered. Ordering Provider: ANKUSH BOWMAN Report Released Date/Time: Sep 24, 2022 01:55 PM Reporting Lab: [facility] [address] Performing Lab: [facility] [address] [place] [facility] URINALYS IS PH OF URINE BY TEST STRIP 7.5 5.0 - 8.0 10/08 Specimen Type: URINE No comment entered. Ordering Provider: ANKUSH BOWMAN Report Released Date/Time: Sep 24, 2022 01:55 PM Reporting Lab: [facility] [address] Performing Lab: [facility] [address] [place] [facility] URINALYS IS LEUKOCYTES [#/AREA] IN URINE SEDIMENT BY MICROSCOPY HIGH POWER FIELD >180/[HP F] 0 - 7 10/08 H Specimen Type: URINE No comment entered. Ordering Provider: ANKUSH BOWMAN Report Released Date/Time: Sep 24, 2022 01:55 PM Reporting Lab: [facility] [address] Performing Lab: [facility] [address] [place] [facility] URINALYS IS BACTERIA [PRESENCE] IN URINE SEDIMENT BY LIGHT MICROSCOPY MANY 10/08 Specimen Type: URINE No comment entered. Ordering Provider: ANKUSH BOWMAN Report Released Date/Time: Sep 24, 2022 01:55 PM Reporting Lab: [facility] [address] Performing Lab: [facility] [address] [place] [facility] URINALYS IS ERYTHROCYT ES [#/AREA] IN URINE SEDIMENT BY MICROSCOPY HIGH POWER FIELD 33 /[HPF] 0 - 3 10/08 H Specimen Type: URINE No comment entered. Ordering Provider: ANKUSH BOWMAN Report Released Date/Time: Sep 24, 2022 01:55 PM Reporting Lab: [facility] [address] Performing Lab: [facility] [address] [facility] URINALYS IS APPEARANCE OF URINE EX.TURBI D 10/08 Specimen Type: URINE No comment entered. Ordering Provider: ANKUSH BOWMAN Report Released Date/Time: Sep 24, 2022 01:55 PM Reporting Lab: [facility] [address] Performing Lab: [facility] [address] [facility] URINALYS IS EPITHELIAL CELLS.SQUA MOUS [#/AREA] IN URINE SEDIMENT BY MICROSCOPY HIGH POWER FIELD 1 /[HPF] 10/08 Specimen Type: URINE No comment entered. Ordering Provider: ANKUSH BOWMAN Report Released Date/Time: Sep 24, 2022 01:55 PM Reporting Lab: [facility] [address] Performing Lab: [facility] [address] [facility] URINALYS IS HEMOGLOBIN [PRESENCE] IN URINE BY TEST STRIP 1+ 10/08 Specimen Type: URINE No comment entered. Ordering Provider: ANKUSH BWOMAN Report Released Date/Time: Sep 24, 2022 01:55 PM Reporting Lab: [facility] [address] Performing Lab: [facility] [address] [facility] URINALYS IS NITRITE [PRESENCE] IN URINE BY TEST STRIP NEGATIVE 10/08 Specimen Type: URINE No comment entered. Ordering Provider: ANKUSH BOWMAN Report Released Date/Time: Sep 24, 2022 01:55 PM Reporting Lab: [facility] [address] Performing Lab: [facility] [address] [facility] URINALYS IS LEUKOCYTE CLUMPS [#/VOLUME] IN URINE BY AUTOMATED COUNT PRESENT 10/08 Specimen Type: URINE No comment entered. Ordering Provider: ANKUSH BOWMAN Report Released Date/Time: Sep 24, 2022 01:55 PM Reporting Lab: [facility] [address] Performing Lab: [facility] [address] [place] [facility] URINALYS IS LEUKOCYTE ESTERASE [PRESENCE] IN URINE BY TEST STRIP 500 10/08 Specimen Type: URINE No comment entered. Ordering Provider: ANKUSH BOWMAN Report Released Date/Time: Sep 24, 2022 01:55 PM Reporting Lab: [facility] [address] Performing Lab: [facility] [address] [place] [facility] ALBUMIN ALBUMIN [MASS/VOLU ME] IN SERUM OR PLASMA 4.2 g/dL 3.5 - 5.2 10/08 Specimen Type: PLASMA No comment entered. Ordering Provider: ANKUSH BOWMAN Report Released Date/Time: Sep 24, 2022 01:55 PM Reporting Lab: [facility] [address] Performing Lab: [facility] [address] [place] [facility] CBC & DIFF LEUKOCYTES [#/VOLUME] IN BLOOD BY AUTOMATED COUNT 7.32 10*3/uL 4.0 - 11.0 10/08 Specimen Type: BLOOD Comment: Automated Differentia l Performed Ordering Provider: ANKUSH BOWMAN Report Released Date/Time: Sep 24, 2022 01:55 PM Reporting Lab: [facility] [address] Performing Lab: [facility] [address] [place] [facility] CBC & DIFF ERYTHROCYT ES [#/VOLUME] IN BLOOD BY AUTOMATED COUNT 4.80 10*6/uL 4.6 - 6.2 10/08 Specimen Type: BLOOD Comment: Automated Differentia l Performed Ordering Provider: ANKUSH BOWMAN Report Released Date/Time: Sep 24, 2022 01:55 PM Reporting Lab: [facility] [address] Performing Lab: [facility] [address] [place] [facility] CBC & DIFF HEMOGLOBIN [MASS/VOLU ME] IN BLOOD 14.7 g/dL 13.5 - 17.9 10/08 Specimen Type: BLOOD Comment: Automated Differentia l Performed Ordering Provider: ANKUSH BOWMAN Report Released Date/Time: Sep 24, 2022 01:55 PM Reporting Lab: [facility] [address] Performing Lab: [facility] [address] [place] [facility] CBC & DIFF HEMATOCRIT [VOLUME FRACTION] OF BLOOD BY AUTOMATED COUNT 44.2 41 - 54 10/08 Specimen Type: BLOOD Comment: Automated Differentia l Performed Ordering Provider: ANKUSH BOWMAN Report Released Date/Time: Sep 24, 2022 01:55 PM Reporting Lab: [facility] [address] Performing Lab: [facility] [address] [place] [facility] CBC & DIFF MCV [ENTITIC VOLUME] BY AUTOMATED COUNT 92.1 fL 80 - 100 10/08 Specimen Type: BLOOD Comment: Automated Differentia l Performed Ordering Provider: ANKUSH BOWMAN Report Released Date/Time: Sep 24, 2022 01:55 PM Reporting Lab: [facility] [address] Performing Lab: [facility] [address] [place] [facility] CBC & DIFF MCH [ENTITIC MASS] BY AUTOMATED COUNT 30.6 pg 27 - 33 10/08 Specimen Type: BLOOD Comment: Automated Differentia l Performed Ordering Provider: ANKUSH BOWMAN Report Released Date/Time: Sep 24, 2022 01:55 PM Reporting Lab: [facility] [address] Performing Lab: [facility] [address] [place] [facility] CBC & DIFF MCHC [MASS/VOLU ME] BY AUTOMATED COUNT 33.3 g/dL 32.0 - 37.5 10/08 Specimen Type: BLOOD Comment: Automated Differentia l Performed Ordering Provider: ANKUSH BOWMAN Report Released Date/Time: Sep 24, 2022 01:55 PM Reporting Lab: [facility] [address] Performing Lab: [facility] [address] [place] [facility] CBC & DIFF PLATELETS [#/VOLUME] IN BLOOD BY AUTOMATED COUNT 144 10*3/uL 150 - 400 10/08 L Specimen Type: BLOOD Comment: Automated Differentia l Performed Ordering Provider: ANKUSH BOWMAN Report Released Date/Time: Sep 24, 2022 01:55 PM Reporting Lab: [facility] [address] Performing Lab: [facility] [address] [place] [facility] CBC & DIFF PLATELET MEAN VOLUME [ENTITIC VOLUME] IN BLOOD BY AUTOMATED COUNT 10.8 fL 7.4 - 10.4 10/08 H Specimen Type: BLOOD Comment: Automated Differentia l Performed Ordering Provider: ANKUSH BOWMAN Report Released Date/Time: Sep 24, 2022 01:55 PM Reporting Lab: [facility] [address] Performing Lab: [facility] [address] [place] [facility] CBC & DIFF NEUTROPHIL S/100 LEUKOCYTES IN BLOOD BY MANUAL COUNT 55.5 10/08 Specimen Type: BLOOD Comment: Automated Differentia l Performed Ordering Provider: ANKUSH BOWMAN Report Released Date/Time: Sep 24, 2022 01:55 PM Reporting Lab: [facility] [address] Performing Lab: [facility] [address] [place] [facility] CBC & DIFF LYMPHOCYTE S/100 LEUKOCYTES IN BLOOD BY MANUAL COUNT 31.4 10/08 Specimen Type: BLOOD Comment: Automated Differentia l Performed Ordering Provider: ANKUSH BOWMAN Report Released Date/Time: Sep 24, 2022 01:55 PM Reporting Lab: [facility] [address] Performing Lab: [facility] [address] [place] [facility] CBC & DIFF MONOCYTES/ 100 LEUKOCYTES IN BLOOD BY AUTOMATED COUNT 10.2 10/08 Specimen Type: BLOOD Comment: Automated Differentia l Performed Ordering Provider: ANKUSH BOWMAN Report Released Date/Time: Sep 24, 2022 01:55 PM Reporting Lab: [facility] [address] Performing Lab: [facility] [address] [place] [facility] CBC & DIFF EOSINOPHIL S/100 LEUKOCYTES IN BLOOD BY AUTOMATED COUNT 2.2 10/08 Specimen Type: BLOOD Comment: Automated Differentia l Performed Ordering Provider: ANKUSH BOWMAN Report Released Date/Time: Sep 24, 2022 01:55 PM Reporting Lab: [facility] [address] Performing Lab: [facility] [address] [place] [facility] CBC & DIFF BASOPHILS/ 100 LEUKOCYTES IN BLOOD BY MANUAL COUNT 0.4 10/08 Specimen Type: BLOOD Comment: Automated Differentia l Performed Ordering Provider: ANKUSH BOWMAN Report Released Date/Time: Sep 24, 2022 01:55 PM Reporting Lab: [facility] [address] Performing Lab: [facility] [address] [place] [facility] CBC & DIFF ERYTHROCYT E DISTRIBUTI ON WIDTH [RATIO] BY AUTOMATED COUNT 15.9 11.5 - 14.5 10/08 H Specimen Type: BLOOD Comment: Automated Differentia l Performed Ordering Provider: ANKUSH BOWMAN Report Released Date/Time: Sep 24, 2022 01:55 PM Reporting Lab: [facility] [address] Performing Lab: [facility] [address] [place] [facility] CBC & DIFF LYMPHOCYTE S [#/VOLUME] IN BLOOD BY AUTOMATED COUNT 2.30 10*3/uL 1.0 - 4.0 10/08 Specimen Type: BLOOD Comment: Automated Differentia l Performed Ordering Provider: ANKUSH BOWMAN Report Released Date/Time: Sep 24, 2022 01:55 PM Reporting Lab: [facility] [address] Performing Lab: [facility] [address] [place] [facility] CBC & DIFF MONOCYTES [#/VOLUME] IN BLOOD BY AUTOMATED COUNT 0.75 10*3/uL 0.1 - 1.0 10/08 Specimen Type: BLOOD Comment: Automated Differentia l Performed Ordering Provider: ANKUSH BOWMAN Report Released Date/Time: Sep 24, 2022 01:55 PM Reporting Lab: [facility] [address] Performing Lab: [facility] [address] [place] [facility] CBC & DIFF NEUTROPHIL S [#/VOLUME] IN BLOOD BY AUTOMATED COUNT 4.06 10*3/uL 2.0 - 7.7 10/08 Specimen Type: BLOOD Comment: Automated Differentia l Performed Ordering Provider: ANKUSH BOWMAN Report Released Date/Time: Sep 24, 2022 01:55 PM Reporting Lab: [facility] [address] Performing Lab: [facility] [address] [place] [facility] CBC & DIFF EOSINOPHIL S [#/VOLUME] IN BLOOD BY AUTOMATED COUNT 0.16 10*3/uL 0 - 0.5 10/08 Specimen Type: BLOOD Comment: Automated Differentia l Performed Ordering Provider: ANKUSH BOWMAN Report Released Date/Time: Sep 24, 2022 01:55 PM Reporting Lab: [facility] [address] Performing Lab: [facility] [address] [place] [facility] CBC & DIFF BASOPHILS [#/VOLUME] IN BLOOD BY AUTOMATED COUNT 0.03 10*3/uL 0 - 0.2 10/08 Specimen Type: BLOOD Comment: Automated Differentia l Performed Ordering Provider: ANKUSH BOWMAN Report Released Date/Time: Sep 24, 2022 01:55 PM Reporting Lab: [facility] [address] Performing Lab: [facility] [address] [place] [facility] CBC & DIFF IG(META,MY MALACHI,PRO) 0.3 10/08 Specimen Type: BLOOD Comment: Automated Differentia l Performed Ordering Provider: ANKUSH BOWMAN Report Released Date/Time: Sep 24, 2022 01:55 PM Reporting Lab: [facility] [address] Performing Lab: [facility] [address] [place] [facility] CBC & DIFF IMMATURE GRANULOCYT ES [PRESENCE] IN BLOOD BY AUTOMATED COUNT 0.02 10*3/uL 0 - 0.1 10/08 Specimen Type: BLOOD Comment: Automated Differentia l Performed Ordering Provider: ANKUSH BOWMAN Report Released Date/Time: Sep 24, 2022 01:55 PM Reporting Lab: [facility] [address] Performing Lab: [facility] [address] [place] [facility] COMPREHE NSIVE METABOLI C PANEL+MG CREATININE [MASS/VOLU ME] IN SERUM OR PLASMA 0.7 mg/dL 0.7 - 1.2 10/08 Specimen Type: PLASMA No comment entered. Ordering Provider: ANKUSH BOWMAN Report Released Date/Time: Sep 24, 2022 01:55 PM Reporting Lab: [facility] [address] Performing Lab: [facility] [address] [place] [facility] COMPREHE NSIVE METABOLI C PANEL+MG UREA NITROGEN [MASS/VOLU ME] IN SERUM OR PLASMA 16 mg/dL 8 - 26 10/08 Specimen Type: PLASMA No comment entered. Ordering Provider: ANKUSH BOWMAN Report Released Date/Time: Sep 24, 2022 01:55 PM Reporting Lab: [facility] [address] Performing Lab: [facility] [address] [facility] COMPREHE NSIVE METABOLI C PANEL+MG GLUCOSE [MASS/VOLU ME] IN SERUM OR PLASMA 94 mg/dL 70 - 100 10/08 Specimen Type: PLASMA No comment entered. Ordering Provider: ANKUSH BOWMAN Report Released Date/Time: Sep 24, 2022 01:55 PM Reporting Lab: [facility] [address] Performing Lab: [facility] [address] [place] [facility] COMPREHE NSIVE METABOLI C PANEL+MG SODIUM [MOLES/VOL UME] IN SERUM OR PLASMA 138 mmol/L 136 - 145 10/08 Specimen Type: PLASMA No comment entered. Ordering Provider: ANKUSH BOWMAN Report Released Date/Time: Sep 24, 2022 01:55 PM Reporting Lab: [facility] [address] Performing Lab: [facility] [address] [place] [facility] COMPREHE NSIVE METABOLI C PANEL+MG POTASSIUM [MOLES/VOL UME] IN SERUM OR PLASMA 3.9 mmol/L 3.5 - 5.1 10/08 Specimen Type: PLASMA No comment entered. Ordering Provider: ANKUSH BOWMAN Report Released Date/Time: Sep 24, 2022 01:55 PM Reporting Lab: [facility] [address] Performing Lab: [facility] [address] [place] [facility] COMPREHE NSIVE METABOLI C PANEL+MG CHLORIDE [MOLES/VOL UME] IN SERUM OR PLASMA 101 mmol/L 98 - 107 10/08 Specimen Type: PLASMA No comment entered. Ordering Provider: ANKUSH BOWMAN Report Released Date/Time: Sep 24, 2022 01:55 PM Reporting Lab: [facility] [address] Performing Lab: [facility] [address] [place] [facility] COMPREHE NSIVE METABOLI C PANEL+MG CARBON DIOXIDE, TOTAL [MOLES/VOL UME] IN SERUM OR PLASMA 28 mmol/L 22 - 29 10/08 Specimen Type: PLASMA No comment entered. Ordering Provider: ANKUSH BOWMAN Report Released Date/Time: Sep 24, 2022 01:55 PM Reporting Lab: [facility] [address] Performing Lab: [facility] [address] [place] [facility] COMPREHE NSIVE METABOLI C PANEL+MG CALCIUM [MASS/VOLU ME] IN SERUM OR PLASMA 9.7 mg/dL 8.4 - 10.2 10/08 Specimen Type: PLASMA No comment entered. Ordering Provider: ANKUSH BOWMAN Report Released Date/Time: Sep 24, 2022 01:55 PM Reporting Lab: [facility] [address] Performing Lab: [facility] [address] [place] [facility] COMPREHE NSIVE METABOLI C PANEL+MG PROTEIN [MASS/VOLU ME] IN SERUM OR PLASMA 7.6 g/dL 6.0 - 8.3 10/08 Specimen Type: PLASMA No comment entered. Ordering Provider: ANKUSH BOWMAN Report Released Date/Time: Sep 24, 2022 01:55 PM Reporting Lab: [facility] [address] Performing Lab: [facility] [address] [place] [facility] COMPREHE NSIVE METABOLI C PANEL+MG ALBUMIN [MASS/VOLU ME] IN SERUM OR PLASMA 4.2 g/dL 3.5 - 5.2 10/08 Specimen Type: PLASMA No comment entered. Ordering Provider: ANKUSH BOWMAN Report Released Date/Time: Sep 24, 2022 01:55 PM Reporting Lab: [facility] [address] Performing Lab: [facility] [address] [facility] IS [facility] COMPREHE NSIVE METABOLI C PANEL+MG BILIRUBIN. TOTAL [MASS/VOLU ME] IN SERUM OR PLASMA 0.6 mg/dL 0.2 - 1.2 10/08 Specimen Type: PLASMA No comment entered. Ordering Provider: ANKUSH BOWMAN Report Released Date/Time: Sep 24, 2022 01:55 PM Reporting Lab: [facility] [address] Performing Lab: [facility] [address] [facility] IS [facility] COMPREHE NSIVE METABOLI C PANEL+MG MAGNESIUM [MASS/VOLU ME] IN SERUM OR PLASMA 2.1 mg/dL 1.6 - 2.6 10/08 Specimen Type: PLASMA No comment entered. Ordering Provider: ANKUSH BOWMAN Report Released Date/Time: Sep 24, 2022 01:55 PM Reporting Lab: [facility] [address] Performing Lab: [facility] [address] [facility] IS [facility] COMPREHE NSIVE METABOLI C PANEL+MG ANION GAP IN SERUM OR PLASMA 9 mmol/L 5 - 15 10/08 Specimen Type: PLASMA No comment entered. Ordering Provider: ANKUSH BOWMAN Report Released Date/Time: Sep 24, 2022 01:55 PM Reporting Lab: [facility] [address] Performing Lab: [facility] [address] [facility] IS [facility] COMPREHE NSIVE METABOLI C PANEL+MG ALKALINE PHOSPHATAS E [ENZYMATIC ACTIVITY/V OLUME] IN SERUM OR PLASMA 96 U/L 40 - 150 10/08 Specimen Type: PLASMA No comment entered. Ordering Provider: ANKUSH BOWMAN Report Released Date/Time: Sep 24, 2022 01:55 PM Reporting Lab: [facility] [address] Performing Lab: [facility] [address] [place] [facility] COMPREHE NSIVE METABOLI C PANEL+MG ALANINE AMINOTRANS FERASE [ENZYMATIC ACTIVITY/V OLUME] IN SERUM OR PLASMA 29 U/L <55 - 55 10/08 Specimen Type: PLASMA No comment entered. Ordering Provider: ANKUSH BOWMAN Report Released Date/Time: Sep 24, 2022 01:55 PM Reporting Lab: [facility] [address] Performing Lab: [facility] [address] [place] [facility] COMPREHE NSIVE METABOLI C PANEL+MG ASPARTATE AMINOTRANS FERASE [ENZYMATIC ACTIVITY/V OLUME] IN SERUM OR PLASMA 22 U/L <34 - 34 10/08 Specimen Type: PLASMA No comment entered. Ordering Provider: ANKUSH BOWMAN Report Released Date/Time: Sep 24, 2022 01:55 PM Reporting Lab: [facility] [address] Performing Lab: [facility] [address] [place] [facility] COMPREHE NSIVE METABOLI C PANEL+MG GLOMERULAR FILTRATION RATE/1.73 SQ M.PREDICTE D [VOLUME RATE/AREA] IN SERUM, PLASMA OR BLOOD BY CREATININE -BASED FORMULA (CKD-EPI) >90 60 10/08 Specimen Type: PLASMA No comment entered. Ordering Provider: ANKUSH BOWMAN Report Released Date/Time: Sep 24, 2022 01:55 PM Reporting Lab: [facility] [address] Performing Lab: [facility] [address] [place] [facility] CYSTATIN C WITH EGFR CYSTATIN C [MASS/VOLU ME] IN SERUM OR PLASMA 1.38 mg/L 0.51 - 1.05 10/08 H Specimen Type: PLASMA No comment entered. Ordering Provider: ANKUSH BOWMAN Report Released Date/Time: Sep 24, 2022 01:55 PM Reporting Lab: [facility] [address] Performing Lab: [facility] [address] [place] [facility] CYSTATIN C WITH EGFR CYSTATIN C AND GLOMERULAR FILTRATION RATE BY CYSTATIN-B ASED FORMULA PANEL - SERUM OR PLASMA 48 60 10/08 L Specimen Type: PLASMA No comment entered. Ordering Provider: ANKUSH BOWMAN Report Released Date/Time: Sep 24, 2022 01:55 PM Reporting Lab: [facility] [address] Performing Lab: [facility] [address] [place] [facility] PRE-ALBU MIN PREALBUMIN [MASS/VOLU ME] IN SERUM OR PLASMA 28.4 mg/dL 14.0 - 45.0 10/08 Specimen Type: SERUM No comment entered. Ordering Provider: ANKUSH BOWMAN Report Released Date/Time: Sep 24, 2022 01:55 PM Reporting Lab: [facility] [address] Performing Lab: [facility] [address] [place] [facility] VIT D 25-OH,TO ZAMZAM 25-HYDROXY VITAMIN D3 [MASS/VOLU ME] IN SERUM OR PLASMA 54 ng/mL 12 - 50 10/08 H Specimen Type: SERUM No comment entered. Ordering Provider: ANKUSH BOWMAN Report Released Date/Time: Sep 24, 2022 01:55 PM Reporting Lab: [facility] [address] Performing Lab: [facility] [address] [place] [facility] Encounters Combined list of: 1) Encounters from Department of Veterans Affairs facilities going back up to thelast 18 months. 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 Location Location Details Encounter Type Encounter Number Reason For Visit Attending Provider ADM Date DC Date Status Disposition Source [place] [facility] Outpatient Encounter [id number] 02/19 [facility] [place] [facility] HC PRO PHONE CALL 11-20 MIN [id number] Diagnos is: ICD-10- CM Z73.6 Limitat ion of activit ies due to disabil ity<br/ > BOUSLOG,RY AN P 04/23 [place] [facility] [place] [facility] Outpatient Encounter [id number] 04/24 [facility] [place] [facility] Outpatient Encounter [id number] 05/24 [facility] [place] [facility] OFF/OP EST MAY X REQ PHY/QHP [id number] Diagnos is: ICD-10- CM G82.20 Paraple mary kay, unspeci fied
VIOLA YOON NDA 05/28 [facility] WHEELCHAIR MNGMENT TRAINING [id number] Diagnos is: ICD-10- CM Z73.6 Limitat ion of activit ies due to disabil ity<br/ > BOUSLOG,RY AN P 06/10 [facility] Outpatient Encounter [id number] 10/28 [facility] [place] [facility] Outpatient Encounter [id number] 11/20 [facility] [place] [facility] Outpatient Encounter [id number] 05/12 [facility] [place] [facility] Outpatient Encounter [id number] 07/23 [facility] [place] [facility] Outpatient Encounter [id number] DEE ANDERS 07/28 [facility] Social History Combined list of available smoking, tobacco, and other social history from 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 Social History Type Response Date Comment Sour e Tobacco smoking status FORMERLY NAMED [facility]-TOBACCO NEVER USED 05/28/20 22 SADAF TREVINO [facility] This section is an empty social history section. DoD Advance Directives List of completed, amended, or rescinded Advance Directives on record at Department of 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 An actual copy of the Directive is not included. Date Advance Directive Provider Source 02/05/2023 ADVANCE DIRECTIVE DISCUSSION [facility]
--- OUTSIDE RECORDS SUMMARY | 2024-09-07 12:44 | XMS_ITS | Encounter Summary ---
Author Organization [facility] [address], [place] [address] Care Team Providers Care Manager Enrollment Name Role Phone Franklin Squires MD Primary Care Provider Encounter Details Date Type Department Care Team (Late st Contact Info) Description 07/08/2015 Correspondence [facility] Physical Therapy [address] [place] [address] Trudi Raymundo, PT [address] [place] [address] ADDENDUM FOR LETTER OF MEDICAL NECESSITY Social [...] filedocumented in this encounter Care Teams Manager Enrollment Relationship Specialty Start Date End Date [facility] Squires [facility] [address] [facility] [address] P[facility] - General Family Practice 03/08/16 documented as of this encounter
--- OUTSIDE RECORDS SUMMARY | 2024-09-07 12:44 | XMS_ITS | Encounter Summary ---
Author Organization [facility] Address [address] [address] Care Team Providers Care Used Car Lot Attendant Name Role Phone Franklin Squires MD [...] on filedocumented in this encounter Care Teams Used Car Lot Attendant Relationship Specialty Start Date End Date Franklin Squires MD [address] [facility] [address] PCP - General Family Practice 03/08/16 documented as of this encounter
--- OUTSIDE RECORDS SUMMARY | 2024-09-07 12:44 | XMS_ITS | Encounter Summary ---
Author Organization [facility] Address [address], [place] [address] Care Team Providers Care Flame Burner Name Role Phone Franklin Squires MD Primary [...] filedocumented in this encounter Care Teams Flame Burner Relationship Specialty Start Date End Date Franklin Suqires MD [address] [facility] [address] PCP - General Family Practice 03/08/16 documented as of this encounter
--- OUTSIDE RECORDS SUMMARY | 2024-09-07 12:44 | XMS_ITS | Encounter Summary ---
Author Organization [facility] Address [address], [place] [address] Care Team Providers Care District Service Manager Name Role Phone Franklin Squires MD Primary Care Provider Encounter Details Date Type Department Care Team (Late st Contact Info) Description 06/07/2015 Correspondence [facility] Radiology [address] [place] [id number] Radiology, Provider MRI SAFETY SHEET AND COMPATIBILITY [...] on filedocumented in this encounter Care Teams District Service Manager Relationship Specialty Start Date End Date Franklin Squires MD [address] [place], [place] [address] [address] PCP - General Family Practice 03/08/16 documented as of this encounter
--- OUTSIDE RECORDS SUMMARY | 2024-09-07 12:44 | XMS_ITS | Encounter Summary ---
Author Organization [facility] Address [address] [address] Care Team Providers Care Questioned Documents Examiner Name Role Phone Franklin Squires MD Primary [...] on filedocumented in this encounter Care Teams Questioned Documents Examiner Relationship Specialty Start Date End Date Franklin Squires MD 100 [facility] [address] PCP - General Family Practice 03/08/16 documented as of this encounter
--- OUTSIDE RECORDS SUMMARY | 2024-09-07 12:44 | XMS_ITS | Encounter Summary ---
Author Organization [facility] Address [address], [place] [address] Care Team Providers Care Genetic Counselor Name Role Phone Franklin Squires MD Primary Care Provider Encounter Details Date Type Department Care Team (Late st Contact Info) Description 04/24/2012 Correspondence [facility] Radiology [address] [place] [address] Radiology, Provider MRI SAFETY SHEET AND COMPATIBILITY [...] on filedocumented in this encounter Care Teams Genetic Counselor Relationship Specialty Start Date End Date Franklin Squires MD 100 [facility] [place] [address] PCP - General Family Practice 03/08/16 documented as of this encounter
--- OUTSIDE RECORDS SUMMARY | 2024-09-07 12:44 | XMS_ITS | Encounter Summary ---
Author Organization [facility] [address] [address] Care Team Providers Care Staffing Executive Name Role Phone Franklin Squires MD Primary Care Provider Encounter Details Date Type Department Care Team (Late st Contact Info) Description 02/05/2014 Correspondence [facility] Physical Therapy [address] [place] [address] Trudi Raymundo, PT [address] [place] [address] LETTER OF MEDICAL NECESSITY FOR A WHEELCHAIR [...] filedocumented in this encounter Care Teams Staffing Executive Relationship Specialty Start Date End Date Franklin Squires MD 100 [facility] [place] [address] PCP - General Family Practice 03/08/16 documented as of this encounter
--- OUTSIDE RECORDS SUMMARY | 2024-09-07 12:44 | XMS_ITS | Encounter Summary ---
Author Organization [facility] Address [address] [address] Care Team Providers Care Patient Care Technician Name Role Phone Franklin Squires MD Primary Care Provider Encounter Details Date Type Department Care Team (Late st Contact Info) Description 08/20/2014 Outside Hospital External to [facility] Social History Tobacco Use [...] filedocumented in this encounter Care Teams Patient Care Technician Relationship Specialty Start Date End Date Franklin Squires MD 100 [facility] [address] PCP - General Family Practice 03/08/16 documented as of this encounter
--- OUTSIDE RECORDS SUMMARY | 2024-09-07 12:44 | XMS_ITS | Encounter Summary ---
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
--- OUTSIDE RECORDS SUMMARY | 2024-09-07 12:44 | XMS_ITS | Encounter Summary ---
Author Organization [facility] [address], [place] [address] Care Team Providers Care Lunch Wagon Operator Name Role Phone Franklin Squires MD Primary Care Provider [phone] Encounter Details Date Type Department Care Team (Late st Contact Info) Description 11/10/2014 Correspondence [facility] Physical Therapy [address] [place] [address] Trudi Raymundo, PT [address] [place] [address] LETTER OF MEDICAL NECESSITY Social History Tobacco [...] on filedocumented in this encounter Care Teams Lunch Wagon Operator Relationship Specialty Start Date End Date Franklin Squires MD 100 [facility] [place] [address] PCP - General Family Practice 03/08/16 documented as of this encounter
--- OUTSIDE RECORDS SUMMARY | 2024-09-07 12:44 | XMS_ITS | Encounter Summary ---
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
--- OUTSIDE RECORDS SUMMARY | 2024-09-07 12:44 | XMS_ITS | Encounter Summary ---
Author Organization [facility] Address [address], [place] [address] Care Team Providers Care Installer Helper Name Role Phone Franklin Squires MD Primary Care Provider Encounter Details Date Type Department Care Team (Latest Contact Info) Description 06/04/2014 Correspondence [facility] 401 Interventional Pain Management 401 [facility] [place] [address] Zelalem Cohen, DO [address] [place] [address] MEDICAID PT INFORMATION EMPI RECOVERY Social History [...] on filedocumented in this encounter Care Teams Installer Helper Relationship Specialty Start Date End Date Franklin Squires MD 100 [facility] [place] [address] PCP - General Family Practice 03/08/16 documented as of this encounter
--- OUTSIDE RECORDS SUMMARY | 2024-09-07 12:44 | XMS_ITS | Encounter Summary ---
Author Organization [facility] Address [address], [place] [address] Care Team Providers Care Medication Administration Professional Name Role Phone Franklin Squires MD Primary Care Provider [phone] Encounter Details Date Type Department Care Team (Late st Contact Info) Description 09/17/2013 Correspondence External to External, [place] [address] EMPOWERMENT RULES Social History Tobacco Use Types [...] External, Provider - 09/17/2013 12:00 AM CST N BRAKE OPERATOR documented in this encounter Plan of Treatment Not on file documented as of this encounter Visit Diagnoses Not on filedocumented in this encounter Care Teams Medication Administration Professional Relationship Specialty Start Date End Date Franklin Squires MD 100 [facility] [place] [address] PCP - General Family Practice 03/08/16 documented as of this encounter
--- OUTSIDE RECORDS SUMMARY | 2024-09-07 12:44 | XMS_ITS | Encounter Summary ---
Author Organization [facility] Address [address] [address] Care Team Providers Care Regional Engineer Name Role Phone Franklin Squires MD Primary Care Provider Encounter Details Date Type Department Care Team (Late st Contact Info) Description 11/23/2015 Correspondence External to External, [place] [address] LETTER [facility] Social History Tobacco Use Types Packs/Day Years [...] filedocumented in this encounter Care Teams Regional Engineer Relationship Specialty Start Date End Date Franklin Squires MD [address] [place] [address] [place] [address] PCP - General Family Practice 03/08/16 documented as of this encounter
--- OUTSIDE RECORDS SUMMARY | 2024-09-07 12:44 | XMS_ITS | Encounter Summary ---
Author Organization [facility] Address [address], [place] [address] Care Team Providers Care Oven Drier Tender Name Role Phone Franklin Squires MD Primary Care Provider Encounter Details Date Type Department Care Team (Late st Contact Info) Description 12/16/2014 Correspondence External to External, [place] [address] MEDICARE PLAN OF CARE RECERT Social History [...] filedocumented in this encounter Care Teams Oven Drier Tender Relationship Specialty Start Date End Date Franklin Squires MD [address] [place] [address] [facility] [place] [address] PCP - General Family Practice 03/08/16 documented as of this encounter
--- OUTSIDE RECORDS SUMMARY | 2024-09-07 12:44 | XMS_ITS | Encounter Summary ---
Author Organization [facility] Address [address], [place] [address] Care Team Providers Care Lithographing Machine Operator Name Role Phone Franklin Squires MD Primary Care Provider Encounter Details Date Type Department Care Team (Late st Contact Info) Description 01/06/2016 Correspondence [facility] Radiology [address] [place] [address] Radiology, Provider MRI SAFETY SHEET AND COMPATIBILITY [...] on filedocumented in this encounter Care Teams Lithographing Machine Operator Relationship Specialty Start Date End Date Franklin Squires MD [address] [place], [place] [address] [address] PCP - General Family Practice 03/08/16 documented as of this encounter
--- OUTSIDE RECORDS SUMMARY | 2024-09-07 12:44 | XMS_ITS | Encounter Summary ---
Author Organization [facility] Address [address], [place] [address] Care Team Providers Care Lab Engineer Name Role Phone Franklin Squires MD [...] filedocumented in this encounter Care Teams Lab Engineer Relationship Specialty Start Date End Date Franklin Squires MD 100 [facility] [place] [address] PCP - General Family Practice 03/08/16 documented as of this encounter
--- OUTSIDE RECORDS SUMMARY | 2024-09-07 12:44 | XMS_ITS | Encounter Summary ---
Author Organization [facility] Address [address] [address] Care Team Providers Care Junior Programmer Analyst Name Role Phone Franklin Squires MD Primary Care Provider Encounter Details Date Type Department Care Team (Late st Contact Info) Description 09/07/2014 Correspondence [facility] Radiology [address] [place] [address] Radiology, Provider MRI SAFETY SHEET AND COMPATIBILITY [...] on filedocumented in this encounter Care Teams Junior Programmer Analyst Relationship Specialty Start Date End Date Franklin Squires MD [address] [place], [place] [address] [address] PCP - General Family Practice 03/08/16 documented as of this encounter
--- OUTSIDE RECORDS SUMMARY | 2024-09-07 12:44 | XMS_ITS | Encounter Summary ---
Author Organization [facility] Address [address], [place] [address] Care Team Providers Care Cardiovascular Technician Name Role Phone Franklin Squires MD Primary Care Provider [phone] Encounter Details Date Type Department Care Team (Late st Contact Info) Description 08/20/2014 Outside Hospital External to [facility] Social History Tobacco Use [...] on filedocumented in this encounter Care Teams Cardiovascular Technician Relationship Specialty Start Date End Date Franklin Squires MD [address] [place], [place] [address] [address] PCP - General Family Practice 03/08/16 documented as of this encounter
--- OUTSIDE RECORDS SUMMARY | 2024-09-07 12:44 | XMS_ITS | Encounter Summary ---
Author Organization [facility] Address [address], [place] [address] Care Team Providers Care Product Trainer Name Role Phone Franklin Squires MD [...] filedocumented in this encounter Care Teams Product Trainer Relationship Specialty Start Date End Date Franklin Squires MD 100 [facility] [place] [address] PCP - General Family Practice 03/08/16 documented as of this encounter
--- OUTSIDE RECORDS SUMMARY | 2024-09-07 12:44 | XMS_ITS | Encounter Summary ---
Author Organization [facility] Address [address], [place] [address] Care Team Providers Care Scrap Wheeler Name Role Phone Franklin Squires MD Primary Care Provider Encounter Details Date Type Department Care Team (Late st Contact Info) Description 02/09/2016 Correspondence [facility] 401 NeuroSurgery 401 [facility]. [place], [place] [id number] Jodi Aguila PA-C [address] [place] [address] PATIENT LIFT PRESCRIPTION Social History Tobacco Use [...] on filedocumented in this encounter Care Teams Scrap Wheeler Relationship Specialty Start Date End Date Franklin Squires MD 100 [facility] [place] [address] PCP - General Family Practice 03/08/16 documented as of this encounter
--- OUTSIDE RECORDS SUMMARY | 2024-09-07 12:44 | XMS_ITS | Encounter Summary ---
Author Organization [facility] Address [address], [place] [address] Care Team Providers Care Neuropsychology Service Director Name Role Phone Franklin Squires MD Primary Care Provider [phone] Encounter Details Date Type Department Care Team (Late st Contact Info) Description 07/28/2014 Outside Hospital External to External, Provider No address [address] ER VISIT/TRANSFER Social History Tobacco Use [...] on filedocumented in this encounter Care Teams Neuropsychology Service Director Relationship Specialty Start Date End Date Franklin Squires MD 100 [facility] [place] [address] PCP - General Family Practice 03/08/16 documented as of this encounter
--- OUTSIDE RECORDS SUMMARY | 2024-09-07 12:44 | XMS_ITS | Encounter Summary ---
Author Organization [facility] Address [address] [address] Care Team Providers Care Income Tax Preparer Name Role Phone Franklin Squires MD Primary Care Provider [phone] Encounter Details Date Type Department Care Team (Late st Contact Info) Description 12/16/2013 Correspondence [facility] Radiology [address] [place] [address] Radiology, Provider MRI SAFETY SHEET AND COMPATIBILITY [...] Radiology, Provider - 12/16/2013 12:00 AM CST SHAPER SET UP OPERATOR documented in this encounter Plan of Treatment Not on file documented as of this encounter Visit Diagnoses Not on filedocumented in this encounter Care Teams Income Tax Preparer Relationship Specialty Start Date End Date Franklin Squires MD 100 [facility] [place] [address] PCP - General Family Practice 03/08/16 documented as of this encounter
--- OUTSIDE RECORDS SUMMARY | 2024-09-07 12:44 | XMS_ITS | Encounter Summary ---
Author Organization [facility] Address [address] [address] Care Team Providers Care Supervisor Industrial Arts Education Name Role Phone Franklin Squires MD Primary Care Provider Encounter Details Date Type Department Care Team (Late st Contact Info) Description 03/11/2014 Correspondence [facility] 401 Interventional Pain Management 401 [place] [address] Zelalem Cohen, DO [address] [place] [address] EMPI Social History Tobacco Use Types Packs/Day [...] filedocumented in this encounter Care Teams Supervisor Industrial Arts Education Relationship Specialty Start Date End Date Franklin Squires MD 100 [facility] [place] [address] PCP - General Family Practice 03/08/16 documented as of this encounter
--- OUTSIDE RECORDS SUMMARY | 2024-09-07 12:44 | XMS_ITS | Encounter Summary ---
Author Organization [facility] Address [address] [address] Care Team Providers Care Rhia Name Role Phone Franklin Squires MD Primary Care Provider [phone] Encounter Details Date Type Department Care Team (Late st Contact Info) Description 04/20/[address] [address] Radiology, Provider MRI SAFETY SHEET AND COMPATIBILITY [...] on filedocumented in this encounter Care Teams Rhia Relationship Specialty Start Date End Date Franklin Squires MD 100 [facility] [place] [address] PCP - General Family Practice 03/08/16 documented as of this encounter
--- OUTSIDE RECORDS SUMMARY | 2024-09-07 12:44 | XMS_ITS | Encounter Summary ---
Author Organization [facility] Address [address], [place] [address] Care Team Providers Care Transmission Design Engineer Name Role Phone Franklin Squires MD Primary Care Provider [phone] Encounter Details Date Type Department Care Team (Late st Contact Info) Description 07/23/2013 Correspondence [facility] 401 Interventional Pain Management 401 [place] [address] Zelalem Cohen DO [address] [place] [address] [employer] Social History Tobacco Use Types [...] Cohen MD - 07/23/2013 12:00 AM CDT T PLANT OPERATOR HELPER documented in this encounter Plan of Treatment Not on file documented as of this encounter Visit Diagnoses Not on filedocumented in this encounter Care Teams Transmission Design Engineer Relationship Specialty Start Date End Date Franklin Squires MD 100 [facility] [place] [address] PCP - General Family Practice 03/08/16 documented as of this encounter
--- OUTSIDE RECORDS SUMMARY | 2024-09-07 12:44 | XMS_ITS | Encounter Summary ---
Author Organization [facility] Address [address] [address] Care Team Providers Care Components Engineer Name Role Phone Franklin Squires MD Primary Care Provider Encounter Details Date Type Department Care Team (Late st Contact Info) Description 12/14/2014 Correspondence [facility] 401 Physical Medicine 401 [facility] [place] [address] May Randle MD [address] [place] [address] DETAILED PRODUCT DESCRIPTION Social History Tobacco Use [...] on filedocumented in this encounter Care Teams Components Engineer Relationship Specialty Start Date End Date Franklin Squires MD 100 [facility] [place] [address] PCP - General Family Practice 03/08/16 documented as of this encounter
--- OUTSIDE RECORDS SUMMARY | 2024-09-07 12:44 | XMS_ITS | Encounter Summary ---
Author Organization [facility] Address [address] [address] Care Team Providers Care Patient Transition Specialist Name Role Phone Franklin Squires MD Primary Care Provider Encounter Details Date Type Department Care Team (Late st Contact Info) Description 05/04/2014 Correspondence [facility] 401 Physical Medicine 401 [place] [address] May Randle MD [address] [place] [address] LETTER OF MEDICAL NECESSITY FOR A WHEELCHAIR [...] filedocumented in this encounter Care Teams Patient Transition Specialist Relationship Specialty Start Date End Date Franklin Squires MD 100 [facility] [place] [address] PCP - General Family Practice 03/08/16 documented as of this encounter
--- OUTSIDE RECORDS SUMMARY | 2024-09-07 12:44 | XMS_ITS | Encounter Summary ---
Author Organization [facility] Address [address], [place] [address] Care Team Providers Care Trolley Car Operator Name Role Phone Franklin Squires MD Primary Care Provider [phone] Encounter Details Date Type Department Care Team (Latest Contact Info) Description 12/11/2017 Correspondence Physiatry/Physical [facility] at [facility] 295 [place] [address] May Randle MD [address] [place] [address] [employer] Social History Tobacco Use [...] on filedocumented in this encounter Care Teams Trolley Car Operator Relationship Specialty Start Date End Date Franklin Squires MD [address] [place] [address] [place] [address] PCP - General Family Practice 03/08/16 documented as of this encounter
--- OUTSIDE RECORDS SUMMARY | 2024-09-07 12:44 | XMS_ITS | Encounter Summary ---
Author Organization [facility] Address [address] [address] Care Team Providers Care Master Automotive Technician Name Role Phone Franklin Squires MD Primary Care Provider [phone] Encounter Details Date Type Department Care Team [...] filedocumented in this encounter Care Teams Master Automotive Technician Relationship Specialty Start Date End Date Franklin Squires MD 100 [facility] [place] [address] PCP - General Family Practice 03/08/16 documented as of this encounter
--- OUTSIDE RECORDS SUMMARY | 2024-09-07 12:44 | XMS_ITS | Encounter Summary ---
Author Organization [facility] Address [address] [address] Care Team Providers Care Business Quality Assurance Analyst Name Role Phone Franklin Squires MD Primary Care Provider Encounter Details Date Type Department Care Team (Late st Contact Info) Description 06/11/2014 Correspondence [facility] 401 Physical Medicine 401 [facility] [place] [address] May Randle MD 295 [place] [address] [facility] Social History Tobacco Use Types Packs/Day Years [...] filedocumented in this encounter Care Teams Business Quality Assurance Analyst Relationship Specialty Start Date End Date Franklin Squires MD 100 [facility] [place] [address] PCP - General Family Practice 03/08/16 documented as of this encounter
== END 2024-09-07 12:41 | disposition home or self-care (01) ==
LOC: WOUND 12:40
PROVIDERS: PCP Family Medicine; Visit Provider Nurse Practitioner Family
DX: M86.68 Other chronic osteomyelitis, other site (principal); L89.324 Pressure ulcer of left buttock, stage 4; G82.50 Quadriplegia, unspecified; Z99.3 Dependence on wheelchair
CPT/HCPCS: 11042

== ENCOUNTER 2024-09-14 12:45 | Outpatient (CLI) | payer MEDICARE, OTHER, SELFPAY | END 2024-09-14 12:46 | disposition home or self-care (01) | LOC: WOUND 12:45 | PROVIDERS: PCP Family Medicine; Visit Provider Family Medicine | DX: M86.68 Other chronic osteomyelitis, other site (principal); L89.324 Pressure ulcer of left buttock, stage 4; G82.50 Quadriplegia, unspecified; Z99.3 Dependence on wheelchair | CPT/HCPCS: 15271; Q4201 ==

== ENCOUNTER 2024-09-21 12:44 | Outpatient (CLI) | payer MEDICARE, OTHER, SELFPAY ==
--- OUTSIDE RECORDS SUMMARY | 2024-09-21 12:47 | XMS_ITS | Clinical Summary ---
Author Organization [employer] [facility] Address [place], [place] [address] Care Team Providers Care Marketing Automation Specialist Name Role Phone Zelalem Cohen MD Unavailable [phone] May Randle) Unavailable Franklin Squires MD Primary Care Provider Fred Craft Unavailable [phone] Diane Charles MD Unavailable [phone] Julia Ware RN Unavailable [phone] Allergies Active Allergy Reactions Criticality Noted Date [...] bedIndications:Non-heal ing surgical wound, subsequent encounter Drive [employer] 8 inch low loss mattress and 1/2 rails. Semi-electric bed. Length of need 6 weeks. Bed stock preparation supervisor:no 1 unit 018 Active acetaminophen (TYLENOL EXTRA [...] 60mm, Cut-to-Fit 01/16 - 2 11/18. Item #[id number]. 1 Each 11 021 Active ascorbic acid, [...] 09/27/2008 Assessment & Plan (01/19/2012 9:22 AM LINE CAMERA OPERATOR): Orthopedics: Dr. Bright PM&R: Dr. May Randle Pain Management: Dr. 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 Pure hypercholesterolemia 12/24/2006 Neurogenic bladder 12/24/2006 Neurogenic bowel 12/24/2006 Hypertension Resolved Problems Problem Noted Date Diagnosed Date Resolved Date Soft tissue infection 10/22/20232023 senior care current use of anticoagulant 06/20/2023 01/08/2024 Cellulitis [...] 04/16/2007 10/01/2007 Overview (04/16/2007): S/P IVC Filter senior care (current) use of anticoagulants 02/19/2007 09/27/2008 Depressive disorder, not elsewhere classified 02/14/20 07 01/15/2018 Abnormality of gait 12/24/2006 09/27/20 08 Urinary tract infection, site not specified 12/24/2006 01/15/2018 BENIGN ESSENTIAL HYPERTENSION 12/24/2006 04/17/2016 Overview (12/24/2006): borderline Necrotizing fasciitis 2018 Type 2 diabetes mellitus Encounters Date Type Department Care Team Description 09/20/2024 Refill [facility] [address] [place] [address] Franklin Squires MD Refill Request (Atorvastatin) 09/18/2024 Anticoagulation (warfarin) [address] [address] , [facility] Anticoagulation ( ACELIS) 09/17/2024 11:29 AM LINE CAMERA OPERATOR - 09/17/2024 11:59 PM LINE CAMERA OPERATOR Hospital Encounter [facility] [address] [place] [address] Wound infection (Primary Dx) 09/17/2024 Travel 09/16/[address] [place] [address] Franklin Squires MD Anticoagulation (orders) 09/11/2024 Anticoagulation (warfarin) [address] [place] [address] [place] [address] [facility] Anticoagulation (Acelis) 09/10/2024 1:56 PM CDT - 09/10/2024 11:59 PM CDT Hospital Encounter [facility] [address] [place] [address] Wound infection (Primary Dx) 09/10/2024 1:15 PM CDT Office Visit [address] [place] [address] Diane Charles MD Consult (Neurogenic bladder) 09/10/2024 Travel 09/07/2024 Hospital/[facility] Telepho ne Encounter [facility] [address] [place] [address] Yen Hernandez RN Pre Procedure (PVP) 09/07/[address] [place] [address] Franklin Squires MD Form (Case communication and Plan of Care.) 09/04/2024 Anticoagulation (warfarin) [address] [place] [address] , [facility] Anticoagulation (Acelis) 09/03/2024 1:53 PM CDT - 09/03/2024 11:59 PM CDT Hospital Encounter [facility] [address] [place] [address] Wound infection 09/03/2024 Travel 09/03/[address] [address] , [facility] Refill Request (Warfarin) 09/02/2024 Telephone [facility] [address] [place] [address] Corrie Gomez, HOT PUNCH PRESS OPERATOR Appointment 09/01/[address] [phone] Franklin Squires MD Refill Request (Oxycodone) 08/30/[address] [address] Franklin Squires MD Refill Request (Famotidine, Aripiprazole) 08/29/2024 Anticoagulation (warfarin) [address] [address] 1, [facility] Anticoagulation (Acelis) 08/28/2024 Telephone [facility] [address] [place] [address] Franklin Squires MD Form (Case communication) 08/27/2024 11:25 AM CDT - 08/27/2024 11:59 PM CDT Hospital Encounter [facility] [address] [place] [address] Wound infection (Primary Dx) 08/27/2024 Travel 08/25/2024 Hospital/[facility] Telepho ne Encounter [facility] 200 [facility] [place] [address] Yen Hernandez, VALERIE Pre Procedure (PVP) 08/21/2024 1:00 PM CDT Nurse/Clinic Staff Only [address] [address] Nurse/Clinic Staff Only 08/21/2024 Travel 08/21/2024 Anticoagulation (warfarin) [address] [address] , [facility] Anticoagulation (Acelis) 08/20/2024 11:27 AM CDT - 08/20/2024 11:59 PM CDT Hospital Encounter [address] [place] [address] Wound infection (Primary Dx) 08/19/2024 3:00 PM CDT Nurse/Clinic Staff Only [address] [address] Nurse/Clinic Staff Only (Cath Change ) 08/19/[address] [address] Diane Charles MD Appointment 08/19/2024 Travel 08/18/[address] [address] Franklin Squires MD Questions 08/14/2024 Nurse Triage [address] [address] Franklin Squires MD Catheter Problem 08/14/2024 Anticoagulation (warfarin) [address] [address] 1, [facility] Anticoagulation (Acelis) 08/13/2024 11:23 AM CDT - 08/13/2024 11:59 PM CDT Hospital Encounter [facility] 200 [facility] [place] [address] Wound infection 08/13/2024 Travel 08/13/2024 Hospital/[facility] Telepho ne Encounter [facility] 200 [facility] [place] [address] Yen Hernandez RN Pre Procedure (PVP) 08/07/2024 Anticoagulation (warfarin) [facility] [address] [facility] [address] 1, [facility] Anticoagulation (Acelis) 08/06/2024 11:27 AM CDT - 08/06/2024 11:59 PM CDT Hospital Encounter [facility] [address] [facility] [place] [address] Wound infection (Primary Dx) 08/06/2024 Travel 08/06/2024 Hospital/[facility] Telepho ne Encounter [facility] [place] [address] Yen Hernandez RN Pre Procedure (PVP) 08/04/2024 Telephone [facility] [address] [place] [address] Franklin Squires MD Form 07/31/2024 Anticoagulation (warfarin) [address] [place] [address] 1, [facility] Anticoagulation (Acelis) 07/30/2024 11:25 AM CDT - 07/30/2024 11:59 PM CDT Hospital Encounter [facility] 200 [facility] [place] [address] Wound infection (Primary Dx) 07/30/2024 Hospital/[facility] Telepho ne Encounter [address] [place] [address] Yen Hernandez, VALERIE Pre Procedure (PVP) 07/29/2024 1:30 PM CDT Nurse/Clinic Staff Only [facility] [address] [place] [address] Nurse/Clinic Staff Only (Suprapubic Cath) 07/29/[address] [address] Franklin Squires MD Refill Request (Oxycodone) 07/29/2024 Travel 07/27/2024 Anticoagulation (warfarin) [address] [address] [place] [address] [facility] Anticoagulation (Acelis) 07/24/[address] [address] Franklin Squires MD Anticoagulation (new med) 07/23/2024 8:46 AM CDT - 07/23/2024 2:33 PM CDT Hospital Encounter [facility] 200 [place] [address] Yudith Mcgraw NP Wound infection (Primary Dx) Discharge Disposition: Home Health 07/23/2024 Orders Only [facility] [address] [place] [address] Yudith Mcgraw NP 1 scan: INFUSION CEFEPIME 2 MG 07/23/2024 Travel 07/22/2024 Telephone [facility] [address] [place] [address] Yen Hernandez, RN Appointment 07/22/2024 Telephone [facility] [address] [place] [address] Jennyfer Penny RN 07/15/2024 Telephone [facility] [address] [place] [address] Franklin Squires MD Anticoagulation (Order renewal) 07/15/2024 Anticoagulation (warfarin) [address] [place] [address] , [facility] Anticoagulation (Acelis ) 07/14/[address] [place] [address] Franklin Squires MD Form (Case Communication- Major drug interactions-( Warfarin) - Home Health Certification and Plan of Care - 07/08/2024-09/05/2024) 07/14/[address] [place] [address] Franklin Squires MD Refill Request (Bupropion) 07/09/2024 Orders Only [facility] Scanner 1 scan: (1-Ord) [facility], CT PELVIS W CON, 07/09/2024 07/08/2024 1:30 PM CDT Nurse/Clinic Staff Only [address] [place] [address] Nurse/Clinic Staff Only (Cath Change ) 07/08/2024 Travel 07/07/[address] [place] [address] Franklin Squires MD Refill Request (Donepezil) 07/02/2024 1:30 PM CDT Office Visit [address] [place] [address] Franklin Squires MD Medication Management 07/02/2024 Travel 07/01/2024 Anticoagulation (warfarin) [address] [place] [address] 1, [facility] Anticoagulation (Acelis) from Last 3 Months Immunizations Name Administration Dates Next Due COVID-19 vaccine (Motilo NTech 30mcg/0.3mL) 12YO+ BIVALENT PF, MDV 10/22/2022 COVID-19 vaccine (Pixelated 30mcg/0.3mL) PF, MDV 01/25/2021,01/02/2021 Influenza A (H1N1), [...] Sign Reading Time Taken Comments Blood Pressure 112/68 09/10/2024 1:26 PM CDT Pulse 72 09/10/2024 1:26 PM CDT Temperature 36.3 ??C (97.4 ??F) 07/23/2024 11:00 AM C DT Respiratory Rate 16 09/10/2024 1:26 PM CDT Oxygen Saturation 99% 07/23/2024 11:00 AM CDT Inhaled Oxygen Concentration - - Weight 95.7 kg (211 lb) 04/24/2024 1:48 PM CDT Height 175.3 cm (5' 9) 04/24/2024 1:48 PM CDT Body Mass Index 31.16 04/24/2024 1:48 PM CDT Plan of Treatment Upcoming Encounters Date Type Department Care Team (Late st Contact Info) Description 09/24/2024 11:30 AM LINE CAMERA OPERATOR Appointment [facility] [address] [place] [address] 09/25/2024 3:30 PM LINE CAMERA OPERATOR Appointment [facility] [address] [place] [address] 10/01/2024 12:45 PM LINE CAMERA OPERATOR Appointment [facility] [address] [place] [address] 10/01/2024 1:50 PM LINE CAMERA OPERATOR Office Visit [facility] [address] [place] [address] Franklin Squires MD [address] [place] [address] Mi[place] [address] 10/01/2024 2:30 PM LINE CAMERA OPERATOR Nurse/Clinic Staff Only [facility] [place] [address] Health Maintenance Due Date Last Done Comments [...] Associated Diagnosis Comments HOME MONITOR AC Routine 09/18/2024 12:00 AM LINE CAMERA OPERATOR CBC WITH AUTO DIFFERENTIAL STAT 09/17/2024 11:43 AM LINE CAMERA OPERATOR CBC WITH AUTO DIFFERENTIAL STAT 09/17/2024 11:43 AM LINE CAMERA OPERATOR SEDIMENTATION RATE STAT 09/17/2024 11:43 AM LINE CAMERA OPERATOR C-REACTIVE PROTEIN STAT 09/17/2024 11:43 AM LINE CAMERA OPERATOR HOME MONITOR AC Routine 09/11/2024 12:00 AM CDT CBC WITH AUTO DIFFERENTIAL STAT 09/10/2024 2:10 PM CDT CBC WITH AUTO DIFFERENTIAL STAT 09/10/2024 2:10 PM CDT C-REACTIVE PROTEIN STAT 09/10/2024 2: 10 PM CDT SEDIMENTATION RATE STAT 09/10/2024 2: 10 PM CDT HOME MONITOR AC Routine 09/04/2024 12:00 AM [...] MONITOR AC Routine 07/01/2024 12:00 AM CDT from Last 3 Months Results * HOME MONITOR AC (09/18/2024 12:00 AM LINE CAMERA OPERATOR) Only the most recent of11 resultswithin the time period is included. PATIENT REPORTED HOME INR 2.1 2.00 - 3.00 ALERE HOME MONITORING 09/18/2024 Franklin Squires MD OTHER [facility] HOME MONITORING [address] [place] [address] * (ABNORMAL) SEDIMENTATION RATE (09/17/2024 11:43 AM LINE CAMERA OPERATOR) Only the most recent of2 resultswithin the time period is included. SEDIMENTATION RATE 33(H) <20 mm/hr 2023 11:54 AM LINE CAMERA OPERATOR [facility] Blood BLOOD SPECIMEN / Unknown Line/Port / Unknown 09/17/2024 11:43 AM LINE CAMERA OPERATOR 09/17/2024 11:46 AM LINE CAMERA OPERATOR Yudith Mcgraw NP HEMATOLOGY [facility] [address] [place] [address] * (ABNORMAL) CBC WITH AUTO DIFFERENTIAL (09/17/2024 11:43 AM LINE CAMERA OPERATOR) Only the most recent of6 resultswithin the time period is included. WHITE BLOOD COUNT 7.2 4.5 - 11.0 thou/cu mm 09/17/2024 11:49 AM [facility] RED BLOOD COUNT 4.13(L) 4.30 - 5.90 mil/cu mm 09/17/2024 11:49 AM [facility] HEMOGLOBIN 12.4(L) 13.5 - 17.5 g/dL 09/17/2024 11:49 AM [facility] HEMATOCRIT 39.4 37.0 - 53.0 % 09/17/2024 11:49 AM [facility] MCV 95 80 - 100 fL 09/17/2024 11:49 AM [facility] MCH 30.0 26.0 - 34.0 pg 09/17/2024 11:49 AM [facility] MCHC 31.5(L) 32.0 - 36.0 g/dL 09/17/2024 11:49 AM [facility] RDW 14.6 11.5 - 15.5 % 09/17/2024 11:49 AM [facility] PLATELET COUNT 155 140 - 440 thou/cu mm 09/17/2024 11:49 AM [facility] MPV 10.6 6.5 - 11.0 fL 09/17/2024 11:49 AM [facility] % NEUT 60.5 % 09/17/2024 11:49 AM [facility] % LYMPH 27.8 % 09/17/2024 11:49 AM [facility] % MONO 9.6 % 09/17/2024 11:49 AM [facility] % EOS 1.8 % 09/17/2024 11:49 AM [facility] % BASO 0.3 % 09/17/2024 11:49 AM [facility] ABSOLUTE NEUTROPHILS 4.4 1.7 - 7.0 thou/cu mm 09/17/2024 11:49 AM [facility] ABSOLUTE LYMPHOCYTES 2.0 0.9 - 2.9 thou/cu mm 09/17/2024 11:49 AM [facility] ABSOLUTE MONOCYTES 0.7 <0.9 thou/cu mm 09/17/2024 11:49 AM [facility] ABSOLUTE EOSINOPHILS 0.1 <0.5 thou/cu mm 09/17/2024 11:49 AM [facility] ABSOLUTE BASOPHILS 0.0 <0.3 thou/cu mm 09/17/2024 11:49 AM [facility] Blood BLOOD SPECIMEN / Unknown Line/Port / Unknown 09/17/2024 11:43 AM LINE CAMERA OPERATOR 09/17/2024 11:46 AM LINE CAMERA OPERATOR Narrative [facility] - 09/17/2024 11:49 AM LINE CAMERA OPERATOR Picc line Picc line Yudith Mcgraw NP HEMATOLOGY Performing Organization Address City/[facility] Co de Phone Number [facility] [address] [place] [address] * (ABNORMAL) C-REACTIVE PROTEIN (09/17/2024 11:43 AM LINE CAMERA OPERATOR) Only the most recent of2 resultswithin the time period is included. Pathologist [facility] C-REACTIVE PROTEIN 1.2(H) <0.5 mg/dL 09/17/2024 12:04 PM LINE CAMERA OPERATOR [facility] Blood BLOOD SPECIMEN / Unknown Line/Port / Unknown 09/17/2024 11:43 AM LINE CAMERA OPERATOR 09/17/2024 11:46 AM LINE CAMERA OPERATOR Yudith Mcgraw NP CHEMISTRY Performing Organization Address [facility] de Phone Number [facility] [address] [place] [address] * (ABNORMAL) BASIC METABOLIC PANEL (09/03/2024 2:00 PM CDT) Only the most recent of5 resultswithin the time period is included. Pathologist [facility] SODIUM 136 136 - 145 mmol/L 09/03/2024 2:50 PM [facility] POTASSIUM 3.9 3.5 - 5.1 mmol/L 09/03/2024 2:50 PM T [facility] CHLORIDE 97(L) 98 - 107 mmol/L 09/03/2024 2:50 PM T [facility] CO2,TOTAL 28 22 - 29 mmol/L 09/03/2024 2:50 PM [facility] ANION GAP 11 5 - 18 09/03/2024 2:50 PM T [facility] GLUCOSE 126(H) 70 - 99 mg/dL 09/03/2024 2:50 PM [facility] CALCIUM 9.6 8.8 - 10.2 mg/dL 09/03/2024 2:50 PM CDT [facility] BUN 21 8 - 23 mg/dL 09/03/2024 2:50 PM CDT [facility] CREATININE 0.69(L) 0.70 - 1.20 mg/dL 09/03/2024 2:50 PM CDT [facility] BUN/CREAT RATIO 30(H) 10 - 20 2:50 PM CDT [facility] eGFR >90 >90 mL/min/1.7 3m2 09/03/2024 2:50 PM CDT [facility] Comment:As of 2022, eG [...] 2:37 PM CDT Yudith Mcgraw NP CHEMISTRY Performing Organization Address City/[facility]/ZIP Co de Phone Number [facility] [address] [place] [address] * EXTRA TUBE LAVENDER (07/23/2024 10:59 AM CDT) Blood BLOOD SPECIMEN / Unknown Extra Tube / Unknown 07/23/2024 10:59 AM CDT 07/23/2024 11:06 AM CDT Doctor Unknown LABORATORY [facility] [address] [place] [address] * EXTRA TUBE BLUE (07/23/2024 10:59 AM CDT) Blood BLOOD SPECIMEN / Unknown Extra Tube / Unknown 07/23/2024 10:59 AM CDT 07/23/2024 11:06 AM CDT Doctor Unknown LABORATORY [facility] [address] [place] [address] * XR CHEST 1 VIEW PORTABLE (07/23/2024 [...] 100 - 199 mg/dL 07/02/2024 3:04 PM [facility] Comment: Cholesterol, Total Reference Ranges Desirable <200 mg/dL Borderline 200-239 mg/dL High >=240 mg/dL TRIGLYCERIDES 58 <150 mg/dL 07/02/2024 3:04 PM [facility] HDL CHOLESTEROL 56 >40 mg/dL 3:04 PM [facility] NON-HDL CHOLESTEROL 66 <145 mg/dl 07/02/2024 3:04 PM [facility] CHOL/HDL RATIO 2.18 <4.50 07/02/2024 3:04 PM [facility] LDL CHOLESTEROL 54 <=130 mg/dL 07/02/2024 3:04 PM [facility] VLDL CHOLESTEROL 12 <=30 mg/dL 07/02/2024 3:04 PM [facility] PROVIDER ORDERED STATUS RANDOM 07/02/2024 3:04 PM [facility] Blood BLOOD SPECIMEN / Unknown Venipuncture / Unknown 07/02/2024 2:14 PM CDT 07/02/2024 2:14 PM CDT Franklin Squires MD CHEMISTRY [facility] [address] [place] [address] * (ABNORMAL) CBC W PLT NO DIFF (07/02/2024 2:14 PM CDT) WHITE BLOOD COUNT 8.5 4.5 - 11.0 thou/cu mm 07/02/2024 2:58 PM CDT [facility] RED BLOOD COUNT 4.75 4.30 - 5.90 mil/cu mm 07/02/2024 2:58 PM CDT [facility] HEMOGLOBIN 14.1 13.5 - 17.5 g/dL 07/02/2024 2:58 PM CDT [facility] HEMATOCRIT 42.2 37.0 - 53.0 % 07/02/2024 2:58 PM CDT [facility] MCV 89 80 - 100 fL 07/02/2024 2:58 PM CDT [facility] MCH 29.7 26.0 - 34.0 pg 07/02/2024 2:58 PM CDT [facility] MCHC 33.4 32.0 - 36.0 g/dL 07/02/2024 2:58 PM CDT [facility] RDW 18.3(H) 11.5 - 15.5 % 07/02/2024 2:58 PM CDT [facility] PLATELET COUNT 159 140 - 440 thou/cu mm 07/02/2024 2:58 PM CDT [facility] MPV 10.7 6.5 - 11.0 fL 07/02/2024 2:58 PM CDT [facility] Blood BLOOD SPECIMEN / Unknown Venipuncture / Unknown 07/02/2024 2:14 PM CDT 07/02/2024 2:14 PM CDT Franklin Squires MD HEMATOLOGY [facility] [address] [place] [address] * HEMOGLOBIN A1C MONITORING (POCT) (07/02/2024 2:14 PM CDT) HEMOGLOBIN A1C MONITORING (POCT) 5.9 <=6.4 % 07/02/2024 2:49 PM CDT [facility] Blood BLOOD SPECIMEN / Unknown Venipuncture / Unknown 07/02/2024 2:14 PM CDT 07/02/2024 2:14 PM CDT Narrative [facility] - 07/02/2024 2:49 PM [...] seen with: Untreated Anemias, Splenectomy ? Franklin Squirse MD CHEMISTRY Performing Organization Address City/State/[facility] Co de Phone Number [facility] [address] [place] [address] from Last 3 Months Additional Health Concerns [...] months since positive culture): resides in acute/intermediate project manager care, receiving hemodialysis, has chronic open wounds/skin damage, has long-term percutaneous indwelling medical devices Exclusions for nares collection (if <12 months since positive culture) include all of the previous exclusions plus patients on antibiotics 7 days prior to collection 03/13/2018 03/20/2024 Advance Directives Documents on File Type Date Recorded Patient Shell Freezing Machine Operator Expl anation Treatment Guidelines 08/04/2024 Healthcare [...] Code Status Discussion: Reviewed Preferences Care Teams Marketing Automation Specialist Relationship Specialty Start Date End Date Franklin Squires MD [address] [place] [address] PCP - General Family Practice 10/18/15 Zelalem Cohen MD Physical Therapist 03/13/12 May Randle Md, MD Physical Medicine and Rehabilitation 03/13/12 Fred Craft LSW [address] [place] [address] Recycling Operator 05/03/17 Diane Charles MD [address] [place] [address] Surgery - Urology 01/17/23 Julia Ware, RN [address] [place] [address] [place] [address] Registered Nurse 07/17/23
--- OUTSIDE RECORDS SUMMARY | 2024-09-21 12:47 | XMS_ITS | Continuity of Care Document ---
Author Name [facility] Organization [facility] Care Team Providers Care Stations Superintendent Name Role Phone [facility] Unavailable Unavailable Problems Combined list of problems from 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 It does not include entries that were removed or entered in error. Problem Status Onset Date Problem Type Date of Resolution Comments Source Abnormal liver function Active Condition [facility] Anemia ([facility] 475399199) Active Condition [facility] Anxiety ([facility] 72839279) Active Condition [facility] Autonomic dysreflexia Active Condition [facility] Chronic Pain Syndrome ([facility] 290705464) Active Condition [facility] Colostomy present Active Condition [facility] Constipation ([facility] 83826915) Active Condition [facility] Continuous opioid dependence Active Condition [facility] COPD - Chronic Obstructive Pulmonary Disease ([facility] 53541756) Active Condition [facility] Dementia Active Condition [facility] Depression ([facility] 74946730) Active Condition [facility] Diabetes Mellitus Type 2 (SCT 16180635) Active Condition [facility] Ependymoma of spinal cord Active Condition [facility] Hearing Loss ([facility] 35418780) Active Condition [facility] History of Deep Vein Thrombosis ([facility] 397071892) Active Condition [facility] History of pressure injury Active Condition [facility] HTN - Hypertension ([facility] 78409032) Active Condition [facility] Hyperlipidemia ([facility] 76088702) Active Condition [facility] Hyponatremia Active Condition [facility] Long-term current use of anticoagulant Active Condition [facility] Neurogenic Bladder ([facility] 948748302) Active Condition [facility] Neurogenic bowel Active Condition [facility] Osteoporosis ([facility] 75305376) Active Condition [facility] Paraplegia Active Condition [facility] Spasticity Active Condition [facility] Suprapubic urinary catheter in situ Active Condition [facility] Supraventricular tachycardia Active Condition [facility] Tinnitus ([facility] 36940411) Active Condition [facility] Vitamin D Deficiency ([facility] 5643136) Active Condition [facility] Diagnosis: ICD-10-CM Z73.6 Limitation of activities due to disability Active Diagnosis [facility] Diagnosis: ICD-10-CM G82.20 Paraplegia, unspecified Active Diagnosis [facility] Medications Combined list of outpatient medications from Department of Defense and [facility] Affairs facilities.Medications provided include 1) outpatient medications from the last 15 months, and 2) patient-reported medications. Medication Details Route Status Patient Instructions Prescription Expires Prescription Number Last Dispense Date Ordering Provider Order Date Order Qty Source ACETAMINOPH EN 500MG TAB TAKE TWO TABLETS BY MOUTH THREE TIMES A DAY NEEDED ORAL ACTIVE Jagdish BARRETT N 2022 [facility] AMLODIPINE BESYLATE (AMLODIPINE BESYLATE), 5 MG, TABLET, ORAL, [employer] 1000 ea. BOTTLE Active [id number] 4 2023 90 Pharmac y Data Transac tion Service Facilit y AMLODIPINE BESYLATE (amlodipine besylate), 5 MG, TABLET, ORAL, [employer], 1000 ea. BOTTLE Active [id number] 2023 90 Pharmac y Data Transac tion Service Facilit y AMLODIPINE BESYLATE 2.5MG TAB TAKE TWO TABLETS BY MOUTH EVERY MORNING ORAL ACTIVE Jagdish BARRETT 2022 [facility] AMOX TR-POTASSIU M CLAVULANATE (AMOXICILLI N/POTASSIUM CLAV), 875-125 MG, TABLET, ORAL, [employer], 20 ea. BOTTLE Active [id number] 3 2022 14 Pharmac y Data Transac tion Service Facilit y AMOXICILLIN -CLAVULANAT E POTASS (amoxicilli n/potassium clavulanate ), 875-125 MG, TABLET, ORAL, [employer],, 20 ea. BOTTLE Active [id number] 2023 20 Pharmac y Data Transac tion Service Facilit y AMOXICILLIN -CLAVULANAT E POTASS (amoxicilli n/potassium clavulanate ), 875-125 MG, TABLET, ORAL, [facility],, 20 ea. BOTTLE Active [id number] 2023 56 Pharmac y Data Transac tion Service Facilit y ARIPIPRAZOL E (aripiprazo le), 2 MG, TABLET, ORAL, [employer], 500 ea. BOTTLE Active [id number] 2023 180 Pharmac y Data Transac tion Service Facilit y ARIPIPRAZOL E (aripiprazo le), 2 MG, TABLET, ORAL, [employer], 500 ea. BOTTLE Active [id number] 2023 180 Pharmac y Data Transac tion Service Facilit y ARIPIPRAZOL E TAB TAKE 2MG BY MOUTH TWICE A DAY ORAL ACTIVE Jey HANSON TAZEvelyn Clemente 2021 [facility] ATIVAN (LORAZEPAM) , 0.5 MG, TABLET, ORAL, [employer], 100 ea. BOTTLE Active [id number] 2023 120 Pharmac y Data Transac tion Service Facilit y ATORVASTATI N CA 80MG TAB TAKE ONE-HALF TABLET BY MOUTH EVERY DAY ORAL ACTIVE Jey HANSON Bryn 2021 [facility] ATORVASTATI N CALCIUM (atorvastat in calcium), 40 MG, TABLET, ORAL, [employer]ARMA I, 1000 ea. BOTTLE Active [id number] 2023 90 Pharmac y Data Transac tion Service Facilit y ATORVASTATI N CALCIUM (atorvastat in calcium), 40 MG, TABLET, ORAL, [employer]AR[employer] I, 1000 ea. BOTTLE Active [id number] 2023 90 Pharmac y Data Transac [...] ORAL, PAVEL [employer]ARMACEU, 60 ea. BOTTLE Active [id number] 2023 180 Pharmac y Data Transac tion Service Facilit y BUPROPION HCL SR (bupropion HCl), 150 MG, TAB SR 12H, ORAL, [employer], 60 ea. BOTTLE Active [id number] 2023 180 Pharmac y Data Transac [...] ORAL, [employer], 50 ea. BOTTLE Active [id number] 2023 70 Pharmac y Data Transac tion Service Facilit y DONEPEZIL HCL (DONEPEZIL HCL), 5 MG, TABLET, ORAL, [employer] 1000 ea. BOTTLE Active [id number] 2023 90 Pharmac y Data Transac tion Service Facilit y DONEPEZIL HCL (DONEPEZIL HCL), 5 MG, TABLET, ORAL, [employer] 1000 ea. BOTTLE Cancele d [id number] : 2023 0 Pharmac y Data Transac tion Service Facilit y DONEPEZIL HCL (DONEPEZIL HCL), 5 MG, TABLET, ORAL, [employer] 1000 ea. BOTTLE Active [id number] 2023 90 Pharmac y Data Transac tion Service Facilit y DONEPEZIL HCL 10MG TAB TAKE ONE-HALF TABLET BY MOUTH EVERY DAY ORAL ACTIVE Jey HANSON Bryn 2021 [facility] DULOXETINE HCL (duloxetine HCl), 60 MG, CAPSULE DR, ORAL, [employer] 1000 ea. BOTTLE Active [id number] 2023 180 Pharmac y Data Transac tion Service Facilit y DULOXETINE HCL (duloxetine HCl), 60 MG, CAPSULE DR, ORAL, [employer] 1000 ea. BOTTLE Active [id number] 2023 180 Pharmac y Data Transac tion Service Facilit y DULOXETINE HCL 30MG CAP,EC TAKE 2 CAPSULES BY MOUTH TWICE A DAY ORAL ACTIVE GRANDJey PRADHAN M 2021 [facility] FAMOTIDINE (famotidine ), 20 MG, TABLET, ORAL, [employer] 1000 ea. BOTTLE Active [id number] 2023 180 Pharmac y Data Transac tion Service Facilit y FAMOTIDINE 20MG TAB TAKE ONE TABLET BY MOUTH TWICE A DAY ORAL ACTIVE GRANDIA,C ONALAINAE M 2021 [facility] FUROSEMIDE (furosemide ), 40 MG, TABLET, ORAL, [employer], 1000 ea. BOTTLE Active [id number] 2023 180 Pharmac y Data Transac tion Service Facilit y FUROSEMIDE 40MG TAB TAKE ONE TABLET BY MOUTH TWICE A DAY ORAL ACTIVE MARGIE,C SB M 2021 [facility] GABAPENTIN (gabapentin ), 400 MG, CAPSULE, ORAL, [employer] 500 ea. BOTTLE Active [id number] 2023 270 Pharmac y Data Transac tion Service Facilit y GABAPENTIN (gabapentin ), 400 MG, CAPSULE, ORAL, [employer], 500 ea. BOTTLE Active [id number] 2023 270 Pharmac y Data Transac tion Service Facilit y GABAPENTIN (gabapentin ), 400 MG, CAPSULE, ORAL, [employer], 500 ea. BOTTLE Cancele d [id number] : 2023 0 Pharmac y Data Transac tion Service Facilit y GABAPENTIN 400MG CAP TAKE 1 CAPSULE BY MOUTH THREE TIMES A DAY ORAL ACTIVE GRANDIAJeyE M 2021 [facility] LORAZEPAM (lorazepam) , 0.5 MG, TABLET, ORAL, [employer], 500 ea. BOTTLE Active [id number] 2023 120 Pharmac y Data Transac tion Service Facilit y LORAZEPAM (lorazepam) , 0.5 MG, TABLET, ORAL, [employer], 1000 ea. BOTTLE Active [id number] 2023 120 Pharmac y Data Transac tion Service Facilit y LORAZEPAM (lorazepam) , 0.5 MG, TABLET, ORAL, [employer], 1000 ea. BOTTLE Active [id number] 2023 120 Pharmac y Data Transac tion Service Facilit y LORAZEPAM (lorazepam) , 0.5 MG, TABLET, ORAL, [employer], 1000 ea. BOTTLE Active [id number] 2023 120 Pharmac y Data Transac tion Service Facilit y LORAZEPAM (lorazepam) , 0.5 MG, TABLET, ORAL, [employer], 500 ea. BOTTLE Active [id number] 2023 120 Pharmac y Data Transac tion Service Facilit y LORAZEPAM 0.5MG TAB TAKE ONE TABLET BY MOUTH THREE TIMES A DAY AND TAKE TWO TABLETS BY MOUTH AT BEDTIME ORAL ACTIVE Jagdish BARRETT 2022 [facility] MILK OF MAGNESIA TAKE 30ML BY MOUTH EVERY DAY NEEDED ORAL ACTIVE GRANDIA,C TAZE M 2021 [facility] MULTIVITAMI NS CAP/TAB TAKE ONE TABLET BY MOUTH EVERY DAY ORAL ACTIVE GRANDIA,C SB M 2021 [facility] NALOXONE HCL 4MG/SPRAY SOLN,SPRAY, NASAL SPRAY 1 DOSE IN ONE NOSTRIL DIRECTED PRN NASAL ACTIVE Jagdish BARRETT N 2022 [facility] OXYCODONE HCL (OXYCODONE HCL), 10 MG, TABLET, ORAL, [employer] 100 ea. BOTTLE Active [id number] 2023 120 Pharmac y Data Transac tion Service Facilit y OXYCODONE HCL (OXYCODONE HCL), 10 MG, TABLET, ORAL, [employer] 100 ea. BOTTLE Active [id number] 2023 120 Pharmac y Data Transac tion Service Facilit y OXYCODONE HCL (OXYCODONE HCL), 10 MG, TABLET, ORAL, [employer] 100 ea. BOTTLE Active [id number] 2023 120 Pharmac y Data Transac tion Service Facilit y OXYCODONE HCL (OXYCODONE HCL), 10 MG, TABLET, ORAL, [employer] 100 ea. BOTTLE Active [id number] 2023 120 Pharmac y Data Transac tion Service Facilit y OXYCODONE HCL (OXYCODONE HCL), 10 MG, TABLET, ORAL, [employer] 100 ea. BOTTLE Active [id number] 2023 120 Pharmac y Data Transac tion Service Facilit y OXYCODONE HCL (OXYCODONE HCL), 10 MG, TABLET, ORAL, [employer] 100 ea. BOTTLE Active [id number] 2023 120 Pharmac y Data Transac tion Service Facilit y OXYCODONE HCL (OXYCODONE HCL), 10 MG, TABLET, ORAL, [employer] 100 ea. BOTTLE Active [id number] 2022 120 Pharmac y Data Transac tion Service Facilit y OXYCODONE HCL 5MG TAB TAKE TWO TABLETS BY MOUTH FOUR TIMES A DAY ORAL ACTIVE Jagdish BARRETT 2022 [facility] POTASSIUM CHLORIDE (potassium chloride), 10 MEQ, TAB ER PRT, ORAL, [employer], 100 ea. BOTTLE Active [id number] 2023 180 Pharmac y Data Transac tion Service Facilit y POTASSIUM CHLORIDE (potassium chloride), 10 MEQ, TAB ER PRT, ORAL, [employer], 100 ea. BOTTLE Active [id number] 2023 180 Pharmac y Data Transac tion Service Facilit y POTASSIUM CHLORIDE (potassium chloride), 20 MEQ, TAB ER PRT, ORAL, [employer], 100 ea. BOTTLE Active [id number] 3 2023 90 Pharmac y Data Transac tion Service Facilit y POTASSIUM CHLORIDE 20MEQ TAB,SA (DISPERSIBL E) TAKE ONE TABLET BY MOUTH TWICE A DAY ORAL ACTIVE Jey HANSON 2021 [facility] SANTYL (collagenas e Clostridium histolyticu m), 250 UNIT/G, OINT. (G), TOPICAL, WHITLOCK&N/UNI LUIS, 30 g TUBE Cancele d [id number] : 2023 0 Pharmac y Data Transac tion Service Facilit y WARFARIN SODIUM (warfarin sodium), 5 MG, TABLET, ORAL, [employer] 1000 ea. BOTTLE Cancele d [id number] : 2022 0 Pharmac y Data Transac tion Service Facilit y WARFARIN SODIUM (WARFARIN SODIUM), 5 MG, TABLET, ORAL, [employer], 1000 ea. BOTTLE Active [id number] 2023 25 Pharmac y Data Transac tion Service Facilit y WARFARIN SODIUM (WARFARIN SODIUM), 5 MG, TABLET, ORAL, [employer], 1000 ea. BOTTLE Active [id number] 2023 12 Pharmac y Data Transac tion Service Facilit y WARFARIN SODIUM (WARFARIN SODIUM), 5 MG, TABLET, ORAL, [employer], 1000 ea. BOTTLE Active [id number] 2023 40 Pharmac y Data Transac tion Service Facilit y WARFARIN SODIUM (WARFARIN SODIUM), 5 MG, TABLET, ORAL, [employer], 1000 ea. BOTTLE Cancele d [id number] : 2022 0 Pharmac y Data Transac tion Service Facilit y WARFARIN SODIUM (warfarin sodium), 7.5 MG, TABLET, ORAL, [employer], 100 ea. BOTTLE Active [id number] 2023 51 Pharmac y Data Transac tion Service Facilit y WARFARIN SODIUM (warfarin sodium), 7.5 MG, TABLET, ORAL, [employer], 100 ea. BOTTLE Active [id number] 2023 78 Pharmac y Data Transac tion Service Facilit y WARFARIN TAB TAKE 5MG BY MOUTH SUN/THUR S AND TAKE 7.5MG BY MOUTH ALL OTHER DAYS ORAL ACTIVE Jagdish BARRETT 2022 [facility] Allergies, Adverse Reactions, Alerts Combined list of allergies from Department [facility] and [facility] facilities. It does not include entries that were removed or entered in error. Substance Category Reaction Severity Reaction type Status Date Reported Comments Source AMOXICILLIN Propensity to adverse reactions to drug (finding) Eruption [facility] METOLAZONE Propensity to adverse reactions to drug (finding) Itching active 2 [facility] MORPHINE Propensity to adverse reactions to drug (finding) Delirium active 2 [facility] IS [facility] PIPERACILLIN Propensity to adverse reactions to drug (finding) Eruption active 2 [facility] IS [facility] SULFA DRUGS Propensity to adverse reactions to drug (finding) Eruption active 2 [facility] IS [facility] TAZOBACTAM SODIUM Propensity to adverse reactions to drug (finding) Eruption active 2 [facility] IS [facility] Immunizations Combined list of available immunizations from the Department of [facility] and [facility] facilities. Immunization Series Date Given Administered By Site Reaction Lot Number CVX Code Drug Bottling Line Operator Status Comments Source COVID-19 ([employer]), MRNA, LNP-S, BIVALENT, PF, 30 MCG/0.3 ML DOSE 2021 300 complet ed [facility] INFLUENZA, ADJUVANTED, QUADRIVALENT, PF 2021 205 complet ed [facility] INFLUENZA, UNSPECIFIED FORMULATION 2021 88 complet ed [place] [place] [facility] TD (ADULT), 5 LF TETANUS TOXOID, PRESERVATIVE FREE, ADSORBED 2021 113 complet ed [facility] INFLUENZA, ADJUVANTED, QUADRIVALENT, PF 2020 205 complet ed [facility] INFLUENZA, UNSPECIFIED FORMULATION 2020 88 complet ed [facility] COVID-19 ([employer]), MRNA, LNP-S, PF, 30 MCG/0.3 ML DOSE 3 2020 208 complet ed [facility] COVID-19 ([employer]), MRNA, LNP-S, PF, 30 MCG/0.3 ML DOSE 2 2020 208 complet ed [facility] COVID-19 ([employer]), MRNA, LNP-S, PF, 30 MCG/0.3 ML DOSE 1 2020 208 complet ed [facility] INFLUENZA, ADJUVANTED, QUADRIVALENT, PF 2019 205 complet ed [facility] INFLUENZA, ADJUVANTED, TRIVALENT, PF 2018 168 complet ed [facility] INFLUENZA, ADJUVANTED, TRIVALENT, PF 2017 168 complet ed [facility] INFLUENZA, HIGH-DOSE, TRIVALENT, PF 2016 135 complet ed [facility] INFLUENZA, ADJUVANTED, TRIVALENT, PF 2016 168 complet ed [facility] INFLUENZA, HIGH-DOSE, TRIVALENT, PF 2015 135 complet ed [facility] ZOSTER LIVE 2015 121 complet ed [facility] PNEUMOCOCCAL CONJUGATE PCV 13 2014 133 complet ed [facility] INFLUENZA, HIGH-DOSE, TRIVALENT, PF 2014 135 complet ed [facility] INFLUENZA, HIGH-DOSE, TRIVALENT, PF 2013 135 complet ed [facility] INFLUENZA, UNSPECIFIED FORMULATION 2013 88 complet ed [facility] INFLUENZA, SPLIT VIRUS, TRIVALENT, PRESERVATIVE 2012 141 complet ed [facility] ZOSTER LIVE 2012 121 complet ed [facility] INFLUENZA, SPLIT VIRUS, TRIVALENT, PRESERVATIVE 2011 141 complet ed [facility] INFLUENZA, SPLIT VIRUS, TRIVALENT, PF 2010 140 complet ed [facility] PNEUMOCOCCAL POLYSACCHARID E PPV23 2010 33 complet ed [facility] TDAP 2010 115 complet ed [facility] INFLUENZA, SPLIT VIRUS, TRIVALENT, PRESERVATIVE 2009 141 complet ed [facility] NOVEL INFLUENZA-H1N 1-09, ALL FORMULATIONS 2009 128 complet ed [facility] INFLUENZA, SPLIT VIRUS, TRIVALENT, PF 2008 140 complet ed [facility] PNEUMOCOCCAL POLYSACCHARID E PPV23 2008 33 complet ed [facility] INFLUENZA, SPLIT VIRUS, TRIVALENT, PRESERVATIVE 2008 141 complet ed [facility] INFLUENZA, SPLIT VIRUS, TRIVALENT, PRESERVATIVE 2007 141 complet ed [facility] INFLUENZA, SPLIT VIRUS, TRIVALENT, PRESERVATIVE 2005 141 complet ed [facility] INFLUENZA, SPLIT VIRUS, TRIVALENT, PRESERVATIVE 2004 141 complet ed [facility] PNEUMOCOCCAL POLYSACCHARID E PPV23 2004 33 complet ed [facility] INFLUENZA, SPLIT VIRUS, TRIVALENT, PRESERVATIVE 2003 141 complet ed [facility] Results Combined list of recent chemistry, [...] 03:10 PM Reporting Lab: [facility] [address] Performing Lab: [facility] [address] [facility] CYSTATIN C WITH EGFR CYSTATIN C AND GLOMERULAR FILTRATION RATE BY CYSTATIN C-BASED FORMULA PANEL - SERUM OR PLASMA 53 60 02/13 L Specimen Type: PLASMA No comment entered. Ordering Provider: ANKUSH BOWMAN Report Released Date/Time: Feb 05, 2023 03:10 PM Reporting Lab: [facility] [address] Performing Lab: [facility] [address] [facility] IS [facility] BASIC METABOLI C PANEL+MG CREATININE [MASS/VOLU ME] IN SERUM OR PLASMA 0.7 mg/dL 0.7 - 1.2 02/13 Specimen Type: PLASMA No comment entered. Ordering Provider: ANKUSH BOWMAN Report Released Date/Time: Feb 05, 2023 03:10 PM Reporting Lab: [facility] [address] Performing Lab: [facility] [address] [place] [facility] BASIC METABOLI C PANEL+MG UREA NITROGEN [MASS/VOLU ME] IN SERUM OR PLASMA 15 mg/dL 8 - 26 02/13 Specimen Type: PLASMA No comment entered. Ordering Provider: ANKUSH BOWMAN Report Released Date/Time: Feb 05, 2023 03:10 PM Reporting Lab: [facility] [address] Performing Lab: [facility] [address] [place] [facility] BASIC METABOLI C PANEL+MG GLUCOSE [MASS/VOLU ME] IN SERUM OR PLASMA 140 mg/dL 70 - 100 02/13 H Specimen Type: PLASMA No comment entered. Ordering Provider: ANKUSH BOWMAN Report Released Date/Time: Feb 05, 2023 03:10 PM Reporting Lab: [facility] [address] Performing Lab: [facility] [address] [place] [facility] BASIC METABOLI C PANEL+MG SODIUM [MOLES/VOL UME] IN SERUM OR PLASMA 135 mmol/L 136 - 145 02/13 L Specimen Type: PLASMA No comment entered. Ordering Provider: ANKUSH BOWMAN Report Released Date/Time: Feb 05, 2023 03:10 PM Reporting Lab: [facility] [address] Performing Lab: [facility] [address] [place] [facility] BASIC METABOLI C PANEL+MG POTASSIUM [MOLES/VOL UME] IN SERUM OR PLASMA 4.0 mmol/L 3.5 - 5.1 02/13 Specimen Type: PLASMA No comment entered. Ordering Provider: ANKUSH BOWMAN Report Released Date/Time: Feb 05, 2023 03:10 PM Reporting Lab: [facility] [address] Performing Lab: [facility] [address] [place] [facility]IC METABOLI C PANEL+MG CHLORIDE [MOLES/VOL UME] IN SERUM OR PLASMA 99 mmol/L 98 - 107 02/13 Specimen Type: PLASMA No comment entered. Ordering Provider: ANKUSH BOWMAN Report Released Date/Time: Feb 05, 2023 03:10 PM Reporting Lab: [facility] [address] Performing Lab: [facility] [address] [place] [facility] METABOLI C PANEL+MG CARBON DIOXIDE, TOTAL [MOLES/VOL UME] IN SERUM OR PLASMA 29 mmol/L 22 - 29 02/13 Specimen Type: PLASMA No comment entered. Ordering Provider: ANKUSH BOWMAN Report Released Date/Time: Feb 05, 2023 03:10 PM Reporting Lab: [facility] [address] Performing Lab: [facility] [address] [place] [facility] METABOLI C PANEL+MG CALCIUM [MASS/VOLU ME] IN SERUM OR PLASMA 9.2 mg/dL 8.4 - 10.2 02/13 Specimen Type: PLASMA No comment entered. Ordering Provider: ANKUSH BOWMAN Report Released Date/Time: Feb 05, 2023 03:10 PM Reporting Lab: [facility] [address] Performing Lab: [facility] [address] [place] [facility] METABOLI C PANEL+MG MAGNESIUM [MASS/VOLU ME] IN SERUM OR PLASMA 2.0 mg/dL 1.6 - 2.6 02/13 Specimen Type: PLASMA No comment entered. Ordering Provider: ANKUSH BOWMAN Report Released Date/Time: Feb 05, 2023 03:10 PM Reporting Lab: [facility] [address] Performing Lab: [facility] [address] [place] [facility] BASIC METABOLI C PANEL+MG ANION GAP IN SERUM OR PLASMA 7 mmol/L 5 - 15 02/13 Specimen Type: PLASMA No comment entered. Ordering Provider: ANKUSH BOWMAN Report Released Date/Time: Feb 05, 2023 03:10 PM Reporting Lab: [facility] [address] Performing Lab: [facility] [address] [place] [facility] BASIC METABOLI C PANEL+MG GLOMERULAR FILTRATION RATE/1.73 SQ M.PREDICTE D [VOLUME RATE/AREA] IN SERUM, PLASMA OR BLOOD BY CREATININE -BASED FORMULA (CKD-EPI) >90 60 02/13 Specimen Type: PLASMA No comment entered. Ordering Provider: ANKUSH BOWMAN Report Released Date/Time: Feb 05, 2023 03:10 PM Reporting Lab: [facility] [address] Performing Lab: [facility] [address] [place] [facility] URINALYS IS COLOR OF URINE YELLOW 10/08 Specimen Type: URINE No comment entered. Ordering Provider: ANKUSH BOWMAN Report Released Date/Time: Sep 24, 2022 01:55 PM Reporting Lab: [facility] [address] Performing Lab: [facility] [address] [place] [facility] URINALYS IS SPECIFIC GRAVITY OF URINE 1.023 1.003 - 1.035 10/08 Specimen Type: URINE No comment entered. Ordering Provider: ANKUSH BOWMAN Report Released Date/Time: Sep 24, 2022 01:55 PM Reporting Lab: [facility] [address] Performing Lab: [facility] [address] [place] [facility] URINALYS IS BILIRUBIN. TOTAL [PRESENCE] IN URINE BY TEST STRIP NEGATIVE 10/08 Specimen Type: URINE No comment entered. Ordering Provider: ANKUSH BOWMAN Report Released Date/Time: Sep 24, 2022 01:55 PM Reporting Lab: [facility] [address] Performing Lab: [facility] [address] [place] [facility] URINALYS IS KETONES [MASS/VOLU ME] IN URINE BY TEST STRIP NEGATIVE 10/08 Specimen Type: URINE No comment entered. Ordering Provider: ANKUSH BOWMAN Report Released Date/Time: Sep 24, 2022 01:55 PM Reporting Lab: [facility] [address] Performing Lab: [facility] [address] [place] [facility] URINALYS IS GLUCOSE [MASS/VOLU ME] IN URINE BY TEST STRIP NEGATIVE mg/dL <30 - 30 10/08 Specimen Type: URINE No comment entered. Ordering Provider: ANKUSH BOWMAN Report Released Date/Time: Sep 24, 2022 01:55 PM Reporting Lab: [facility] [id number] Performing Lab: [facility] [id number] [place] [facility] URINALYS IS PROTEIN [MASS/VOLU ME] IN URINE BY TEST STRIP 30 mg/dL <20 - 20 10/08 Specimen Type: URINE No comment entered. Ordering Provider: ANKUSH BOWMAN Report Released Date/Time: Sep 24, 2022 01:55 PM Reporting Lab: [facility] [id number] Performing Lab: [facility] [id number] [place] [facility] URINALYS IS PH OF URINE BY TEST STRIP 7.5 5.0 - 8.0 10/08 Specimen Type: URINE No comment entered. Ordering Provider: ANKUSH BOWMAN Report Released Date/Time: Sep 24, 2022 01:55 PM Reporting Lab: [facility] [address] Performing Lab: [facility] [address] [place] [facility] URINALYS IS LEUKOCYTES [#/AREA] IN URINE SEDIMENT BY MICROSCOPY HIGH POWER FIELD >180/[HP F] 0 - 7 10/08 H Specimen Type: URINE No comment entered. Ordering Provider: ANKUSH BOWMAN Report Released Date/Time: Sep 24, 2022 01:55 PM Reporting Lab: [facility] [address] Performing Lab: [facility] [address] [place] [facility] URINALYS IS BACTERIA [PRESENCE] IN URINE SEDIMENT BY LIGHT MICROSCOPY MANY 10/08 Specimen Type: URINE No comment entered. Ordering Provider: ANKUSH BOWMAN Report Released Date/Time: Sep 24, 2022 01:55 PM Reporting Lab: [facility] [address] Performing Lab: [facility] [address] [place] [facility] URINALYS IS ERYTHROCYT ES [#/AREA] IN URINE SEDIMENT BY MICROSCOPY HIGH POWER FIELD 33 /[HPF] 0 - 3 10/08 H Specimen Type: URINE No comment entered. Ordering Provider: ANKUSH BOWMAN Report Released Date/Time: Sep 24, 2022 01:55 PM Reporting Lab: [facility] [address] Performing Lab: [facility] [address] [place] [facility] URINALYS IS APPEARANCE OF URINE EX.TURBI D 10/08 Specimen Type: URINE No comment entered. Ordering Provider: ANKUSH BOWMAN Report Released Date/Time: Sep 24, 2022 01:55 PM Reporting Lab: [facility] [address] Performing Lab: [facility] [address] [place] [facility] URINALYS IS EPITHELIAL CELLS.SQUA MOUS [#/AREA] IN URINE SEDIMENT BY MICROSCOPY HIGH POWER FIELD 1 /[HPF] 10/08 Specimen Type: URINE No comment entered. Ordering Provider: ANKUSH BOWMAN Report Released Date/Time: Sep 24, 2022 01:55 PM Reporting Lab: [facility] [address] Performing Lab: [facility] [address] [place] [facility] URINALYS IS HEMOGLOBIN [PRESENCE] IN URINE BY TEST STRIP 1+ 10/08 Specimen Type: URINE No comment entered. Ordering Provider: ANKUSH BOWMAN Report Released Date/Time: Sep 24, 2022 01:55 PM Reporting Lab: [facility] [address] Performing Lab: [facility] [address] [place] [facility] URINALYS IS NITRITE [PRESENCE] IN URINE BY TEST STRIP NEGATIVE 10/08 Specimen Type: URINE No comment entered. Ordering Provider: ANKUSH BOWMAN Report Released Date/Time: Sep 24, 2022 01:55 PM Reporting Lab: [facility] [address] Performing Lab: [facility] [address] [place] [facility] URINALYS IS LEUKOCYTE CLUMPS [#/VOLUME] IN URINE BY AUTOMATED COUNT PRESENT 10/08 Specimen Type: URINE No comment entered. Ordering Provider: ANKUSH BOWMAN Report Released Date/Time: Sep 24, 2022 01:55 PM Reporting Lab: [facility] [address] Performing Lab: [facility] [address] [place] [facility] URINALYS IS LEUKOCYTE ESTERASE [PRESENCE] IN URINE BY TEST STRIP 500 10/08 Specimen Type: URINE No comment entered. Ordering Provider: ANKUSH BOWMAN Report Released Date/Time: Sep 24, 2022 01:55 PM Reporting Lab: [facility] [address] Performing Lab: [facility] [address] [place] [facility] ALBUMIN ALBUMIN [MASS/VOLU ME] IN SERUM OR PLASMA 4.2 g/dL 3.5 - 5.2 10/08 Specimen Type: PLASMA No comment entered. Ordering Provider: ANKUSH BOWMAN Report Released Date/Time: Sep 24, 2022 01:55 PM Reporting Lab: [facility] [address] Performing Lab: [facility] [address] [place] [facility] PRE-ALBU MIN PREALBUMIN [MASS/VOLU ME] IN SERUM OR PLASMA 28.4 mg/dL 14.0 - 45.0 10/08 Specimen Type: SERUM No comment entered. Ordering Provider: ANKUHS BOWMAN Report Released Date/Time: Sep 24, 2022 01:55 PM Reporting Lab: [facility] [address] Performing Lab: [facility] [address] [place] [facility] COMPREHE NSIVE METABOLI C PANEL+MG CREATININE [MASS/VOLU ME] IN SERUM OR PLASMA 0.7 mg/dL 0.7 - 1.2 10/08 Specimen Type: PLASMA No comment entered. Ordering Provider: ANKUSH BOWMAN Report Released Date/Time: Sep 24, 2022 01:55 PM Reporting Lab: [facility] [address] Performing Lab: [facility] [address] [place] [facility] COMPREHE NSIVE METABOLI C PANEL+MG UREA NITROGEN [MASS/VOLU ME] IN SERUM OR PLASMA 16 mg/dL 8 - 26 10/08 Specimen Type: PLASMA No comment entered. Ordering Provider: ANKUSH BOWMAN Report Released Date/Time: Sep 24, 2022 01:55 PM Reporting Lab: [facility] [address] Performing Lab: [facility] [address] [place] [facility] COMPREHE NSIVE METABOLI C PANEL+MG GLUCOSE [MASS/VOLU ME] IN SERUM OR PLASMA 94 mg/dL 70 - 100 10/08 Specimen Type: PLASMA No comment entered. Ordering Provider: ANKUSH BOWMAN Report Released Date/Time: Sep 24, 2022 01:55 PM Reporting Lab: [facility] [address] Performing Lab: [facility] [address] [place] [facility] COMPREHE NSIVE METABOLI C PANEL+MG SODIUM [MOLES/VOL UME] IN SERUM OR PLASMA 138 mmol/L 136 - 145 10/08 Specimen Type: PLASMA No comment entered. Ordering Provider: ANKUSH BOWMAN Report Released Date/Time: Sep 24, 2022 01:55 PM Reporting Lab: [facility] [address] Performing Lab: [facility] [address] [place] [facility] COMPREHE NSIVE METABOLI C PANEL+MG POTASSIUM [MOLES/VOL UME] IN SERUM OR PLASMA 3.9 mmol/L 3.5 - 5.1 10/08 Specimen Type: PLASMA No comment entered. Ordering Provider: ANKUSH BOWMAN Report Released Date/Time: Sep 24, 2022 01:55 PM Reporting Lab: [facility] [address] Performing Lab: [facility] [address] [place] [facility] COMPREHE NSIVE METABOLI C PANEL+MG CHLORIDE [MOLES/VOL UME] IN SERUM OR PLASMA 101 mmol/L 98 - 107 10/08 Specimen Type: PLASMA No comment entered. Ordering Provider: ANKUSH BOWMAN Report Released Date/Time: Sep 24, 2022 01:55 PM Reporting Lab: [facility] [address] Performing Lab: [facility] [address] [place] [facility] COMPREHE NSIVE METABOLI C PANEL+MG CARBON DIOXIDE, TOTAL [MOLES/VOL UME] IN SERUM OR PLASMA 28 mmol/L 22 - 29 10/08 Specimen Type: PLASMA No comment entered. Ordering Provider: ANKUSH BOWMAN Report Released Date/Time: Sep 24, 2022 01:55 PM Reporting Lab: [facility] [address] Performing Lab: [facility] [address] [place] [facility] COMPREHE NSIVE METABOLI C PANEL+MG CALCIUM [MASS/VOLU ME] IN SERUM OR PLASMA 9.7 mg/dL 8.4 - 10.2 10/08 Specimen Type: PLASMA No comment entered. Ordering Provider: ANKUSH BOWMAN Report Released Date/Time: Sep 24, 2022 01:55 PM Reporting Lab: [facility] [address] Performing Lab: [facility] [address] [place] [facility] COMPREHE NSIVE METABOLI C PANEL+MG PROTEIN [MASS/VOLU ME] IN SERUM OR PLASMA 7.6 g/dL 6.0 - 8.3 10/08 Specimen Type: PLASMA No comment entered. Ordering Provider: ANKUSH BOWMAN Report Released Date/Time: Sep 24, 2022 01:55 PM Reporting Lab: [facility] [address] Performing Lab: [facility] [address] [place] [facility] COMPREHE NSIVE METABOLI C PANEL+MG ALBUMIN [MASS/VOLU ME] IN SERUM OR PLASMA 4.2 g/dL 3.5 - 5.2 10/08 Specimen Type: PLASMA No comment entered. Ordering Provider: ANKUSH BOWMAN Report Released Date/Time: Sep 24, 2022 01:55 PM Reporting Lab: [facility] [address] Performing Lab: [facility] [address] [place] [facility] COMPREHE NSIVE METABOLI C PANEL+MG BILIRUBIN. TOTAL [MASS/VOLU ME] IN SERUM OR PLASMA 0.6 mg/dL 0.2 - 1.2 10/08 Specimen Type: PLASMA No comment entered. Ordering Provider: ANKUSH BOWMAN Report Released Date/Time: Sep 24, 2022 01:55 PM Reporting Lab: [facility] [address] Performing Lab: [facility] [address] [place] [facility] COMPREHE NSIVE METABOLI C PANEL+MG MAGNESIUM [MASS/VOLU ME] IN SERUM OR PLASMA 2.1 mg/dL 1.6 - 2.6 10/08 Specimen Type: PLASMA No comment entered. Ordering Provider: ANKUSH BOWMAN Report Released Date/Time: Sep 24, 2022 01:55 PM Reporting Lab: [facility] [address] Performing Lab: [facility] [address] [place] [facility] COMPREHE NSIVE METABOLI C PANEL+MG ANION GAP IN SERUM OR PLASMA 9 mmol/L 5 - 15 10/08 Specimen Type: PLASMA No comment entered. Ordering Provider: ANKUSH BOWMAN Report Released Date/Time: Sep 24, 2022 01:55 PM Reporting Lab: [facility] [address] Performing Lab: [facility] [address] [place] [facility] COMPREHE NSIVE METABOLI C PANEL+MG ALKALINE PHOSPHATAS E [ENZYMATIC ACTIVITY/V OLUME] IN SERUM OR PLASMA 96 U/L 40 - 150 10/08 Specimen Type: PLASMA No comment entered. Ordering Provider: ANKUSH BOWMAN Report Released Date/Time: Sep 24, 2022 01:55 PM Reporting Lab: [facility] [address] Performing Lab: [facility] [address] [place] [facility] COMPREHE NSIVE METABOLI C PANEL+MG ALANINE AMINOTRANS FERASE [ENZYMATIC ACTIVITY/V OLUME] IN SERUM OR PLASMA 29 U/L <55 - 55 10/08 Specimen Type: PLASMA No comment entered. Ordering Provider: ANKUSH BOWMAN Report Released Date/Time: Sep 24, 2022 01:55 PM Reporting Lab: [facility] [address] Performing Lab: [facility] [address] [place] [facility] COMPREHE NSIVE METABOLI C PANEL+MG ASPARTATE AMINOTRANS FERASE [ENZYMATIC ACTIVITY/V OLUME] IN SERUM OR PLASMA 22 U/L <34 - 34 10/08 Specimen Type: PLASMA No comment entered. Ordering Provider: ANKUSH BOWMAN Report Released Date/Time: Sep 24, 2022 01:55 PM Reporting Lab: [facility] [address] Performing Lab: [facility] [address] [facility] COMPREHE NSIVE METABOLI C PANEL+MG GLOMERULAR FILTRATION RATE/1.73 SQ M.PREDICTE D [VOLUME RATE/AREA] IN SERUM, PLASMA OR BLOOD BY CREATININE -BASED FORMULA (CKD-EPI) >90 60 10/08 Specimen Type: PLASMA No comment entered. Ordering Provider: ANKUSH BOWMAN Report Released Date/Time: Sep 24, 2022 01:55 PM Reporting Lab: [facility] [address] Performing Lab: [facility] [address] [facility] CBC & DIFF LEUKOCYTES [#/VOLUME] IN BLOOD BY AUTOMATED COUNT 7.32 10*3/uL 4.0 - 11.0 10/08 Specimen Type: BLOOD Comment: Automated Differentia l Performed Ordering Provider: ANKUSH BOWMAN Report Released Date/Time: Sep 24, 2022 01:55 PM Reporting Lab: [facility] [address] Performing Lab: [facility] [address] [facility] CBC & DIFF ERYTHROCYT ES [#/VOLUME] IN BLOOD BY AUTOMATED COUNT 4.80 10*6/uL 4.6 - 6.2 10/08 Specimen Type: BLOOD Comment: Automated Differentia l Performed Ordering Provider: ANKUSH BOWMAN Report Released Date/Time: Sep 24, 2022 01:55 PM Reporting Lab: [facility] [address] Performing Lab: [facility] [address] [facility] CBC & DIFF HEMOGLOBIN [MASS/VOLU ME] IN BLOOD 14.7 g/dL 13.5 - 17.9 10/08 Specimen Type: BLOOD Comment: Automated Differentia l Performed Ordering Provider: ANKUSH BOWMAN Report Released Date/Time: Sep 24, 2022 01:55 PM Reporting Lab: [facility] [address] Performing Lab: [facility] [address] [place] [facility] CBC & DIFF HEMATOCRIT [VOLUME FRACTION] OF BLOOD BY AUTOMATED COUNT 44.2 41 - 54 10/08 Specimen Type: BLOOD Comment: Automated Differentia l Performed Ordering Provider: ANKUSH BOWMAN Report Released Date/Time: Sep 24, 2022 01:55 PM Reporting Lab: [facility] [address] Performing Lab: [facility] [address] [place] [facility] CBC & DIFF MCV [ENTITIC VOLUME] BY AUTOMATED COUNT 92.1 fL 80 - 100 10/08 Specimen Type: BLOOD Comment: Automated Differentia l Performed Ordering Provider: ANKUSH BOWMAN Report Released Date/Time: Sep 24, 2022 01:55 PM Reporting Lab: [facility] [address] Performing Lab: [facility] [address] [place] [facility] CBC & DIFF MCH [ENTITIC MASS] BY AUTOMATED COUNT 30.6 pg 27 - 33 10/08 Specimen Type: BLOOD Comment: Automated Differentia l Performed Ordering Provider: ANKUSH BOWMAN Report Released Date/Time: Sep 24, 2022 01:55 PM Reporting Lab: [facility] [address] Performing Lab: [facility] [address] [place] [facility] CBC & DIFF MCHC [MASS/VOLU ME] BY AUTOMATED COUNT 33.3 g/dL 32.0 - 37.5 10/08 Specimen Type: BLOOD Comment: Automated Differentia l Performed Ordering Provider: ANKUSH BOWMAN Report Released Date/Time: Sep 24, 2022 01:55 PM Reporting Lab: [facility] [address] Performing Lab: [facility] [address] [place] [facility] CBC & DIFF PLATELETS [#/VOLUME] IN BLOOD BY AUTOMATED COUNT 144 10*3/uL 150 - 400 10/08 L Specimen Type: BLOOD Comment: Automated Differentia l Performed Ordering Provider: ANKUSH BOWMAN Report Released Date/Time: Sep 24, 2022 01:55 PM Reporting Lab: [facility] [address] Performing Lab: [facility] [address] [place] [facility] CBC & DIFF PLATELET MEAN VOLUME [ENTITIC VOLUME] IN BLOOD BY AUTOMATED COUNT 10.8 fL 7.4 - 10.4 10/08 H Specimen Type: BLOOD Comment: Automated Differentia l Performed Ordering Provider: ANKUSH BOWMAN Report Released Date/Time: Sep 24, 2022 01:55 PM Reporting Lab: [facility] [address] Performing Lab: [facility] [address] [place] [facility] CBC & DIFF NEUTROPHIL S/100 LEUKOCYTES IN BLOOD BY MANUAL COUNT 55.5 10/08 Specimen Type: BLOOD Comment: Automated Differentia l Performed Ordering Provider: ANKUSH BOWMAN Report Released Date/Time: Sep 24, 2022 01:55 PM Reporting Lab: [facility] [address] Performing Lab: [facility] [address] [place] [facility] CBC & DIFF LYMPHOCYTE S/100 LEUKOCYTES IN BLOOD BY MANUAL COUNT 31.4 10/08 Specimen Type: BLOOD Comment: Automated Differentia l Performed Ordering Provider: ANKUSH BOWMAN Report Released Date/Time: Sep 24, 2022 01:55 PM Reporting Lab: [facility] [address] Performing Lab: [facility] [address] [place] [facility] CBC & DIFF MONOCYTES/ 100 LEUKOCYTES IN BLOOD BY AUTOMATED COUNT 10.2 10/08 Specimen Type: BLOOD Comment: Automated Differentia l Performed Ordering Provider: ANKUSH BOWMAN Report Released Date/Time: Sep 24, 2022 01:55 PM Reporting Lab: [facility] [address] Performing Lab: [facility] [address] [place] [facility] CBC & DIFF EOSINOPHIL S/100 LEUKOCYTES IN BLOOD BY AUTOMATED COUNT 2.2 10/08 Specimen Type: BLOOD Comment: Automated Differentia l Performed Ordering Provider: ANKUSH BOWMAN Report Released Date/Time: Sep 24, 2022 01:55 PM Reporting Lab: [facility] [address] Performing Lab: [facility] [address] [place] [facility] CBC & DIFF BASOPHILS/ 100 LEUKOCYTES IN BLOOD BY MANUAL COUNT 0.4 10/08 Specimen Type: BLOOD Comment: Automated Differentia l Performed Ordering Provider: ANKUSH BOWMAN Report Released Date/Time: Sep 24, 2022 01:55 PM Reporting Lab: [facility] [address] Performing Lab: [facility] [address] [place] [facility] CBC & DIFF ERYTHROCYT E DISTRIBUTI ON WIDTH [RATIO] BY AUTOMATED COUNT 15.9 11.5 - 14.5 10/08 H Specimen Type: BLOOD Comment: Automated Differentia l Performed Ordering Provider: ANKUSH BOWMAN Report Released Date/Time: Sep 24, 2022 01:55 PM Reporting Lab: [facility] [address] Performing Lab: [facility] [address] [place] [facility] CBC & DIFF LYMPHOCYTE S [#/VOLUME] IN BLOOD BY AUTOMATED COUNT 2.30 10*3/uL 1.0 - 4.0 10/08 Specimen Type: BLOOD Comment: Automated Differentia l Performed Ordering Provider: ANKUSH BOWMAN Report Released Date/Time: Sep 24, 2022 01:55 PM Reporting Lab: [facility] [address] Performing Lab: [facility] [address] [place] [facility] CBC & DIFF MONOCYTES [#/VOLUME] IN BLOOD BY AUTOMATED COUNT 0.75 10*3/uL 0.1 - 1.0 10/08 Specimen Type: BLOOD Comment: Automated Differentia l Performed Ordering Provider: ANKUSH BOWMAN Report Released Date/Time: Sep 24, 2022 01:55 PM Reporting Lab: [facility] [address] Performing Lab: [facility] [address] [place] [facility] CBC & DIFF NEUTROPHIL S [#/VOLUME] IN BLOOD BY AUTOMATED COUNT 4.06 10*3/uL 2.0 - 7.7 11/28 /2022 Specimen Type: BLOOD Comment: Automated Differentia l Performed Ordering Provider: ANKUSH BOWMAN Report Released Date/Time: Sep 24, 2022 01:55 PM Reporting Lab: [facility] [address] Performing Lab: [facility] [address] [place] [facility] CBC & DIFF EOSINOPHIL S [#/VOLUME] IN BLOOD BY AUTOMATED COUNT 0.16 10*3/uL 0 - 0.5 10/08 Specimen Type: BLOOD Comment: Automated Differentia l Performed Ordering Provider: ANKUSH BOWMAN Report Released Date/Time: Sep 24, 2022 01:55 PM Reporting Lab: [facility] [address] Performing Lab: [facility] [address] [place] [facility] CBC & DIFF BASOPHILS [#/VOLUME] IN BLOOD BY AUTOMATED COUNT 0.03 10*3/uL 0 - 0.2 10/08 Specimen Type: BLOOD Comment: Automated Differentia l Performed Ordering Provider: ANKUSH BOWMAN Report Released Date/Time: Sep 24, 2022 01:55 PM Reporting Lab: [facility] [address] Performing Lab: [facility] [address] [place] [facility] CBC & DIFF IG(META,MY MALACHI,PRO) 0.3 10/08 Specimen Type: BLOOD Comment: Automated Differentia l Performed Ordering Provider: ANKUSH BOWMAN Report Released Date/Time: Sep 24, 2022 01:55 PM Reporting Lab: [facility] [address] Performing Lab: [facility] [address] [place] [facility] CBC & DIFF IMMATURE GRANULOCYT ES [PRESENCE] IN BLOOD BY AUTOMATED COUNT 0.02 10*3/uL 0 - 0.1 10/08 Specimen Type: BLOOD Comment: Automated Differentia l Performed Ordering Provider: ANKUSH BOWMAN Report Released Date/Time: Sep 24, 2022 01:55 PM Reporting Lab: [facility] [address] Performing Lab: [facility] [address] [place] [facility] CYSTATIN C WITH EGFR CYSTATIN C [MASS/VOLU ME] IN SERUM OR PLASMA 1.38 mg/L 0.51 - 1.05 10/08 H Specimen Type: PLASMA No comment entered. Ordering Provider: ANKUSH BOWMAN Report Released Date/Time: Sep 24, 2022 01:55 PM Reporting Lab: [facility] [address] Performing Lab: [facility] [address] [place] [facility] CYSTATIN C WITH EGFR CYSTATIN C AND GLOMERULAR FILTRATION RATE BY CYSTATIN-B ASED FORMULA PANEL - SERUM OR PLASMA 48 60 10/08 L Specimen Type: PLASMA No comment entered. Ordering Provider: ANKUSH BOWMAN Report Released Date/Time: Sep 24, 2022 01:55 PM Reporting Lab: [facility] [address] Performing Lab: [facility] [address] [place] [facility] VIT D 25-OH,TO ZAMZAM 25-HYDROXY VITAMIN D3 [MASS/VOLU ME] IN SERUM OR PLASMA 54 ng/mL 12 - 50 10/08 H Specimen Type: SERUM No comment entered. Ordering Provider: ANKUSH BOWMAN Report Released Date/Time: Sep 24, 2022 01:55 PM Reporting Lab: [facility] [address] Performing Lab: [facility] [address] [place] [facility] Encounters Combined list of: 1) Encounters from Department of Veterans Affairs facilities going back up to thelast 18 months. 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 Location Location Details Encounter Type Encounter Number Reason For Visit Attending Provider ADM Date DC Date Status Disposition Source [place] [facility] Outpatient Encounter [id number] [facility] [place] [facility] HC PRO PHONE CALL 11-20 MIN [id number] Diagnos is: ICD-10- CM Z73.6 Limitat ion of activit ies due to disabil ity<br/ > BOUSLOG,RY AN P 04/23 [place] [place] [facility] Outpatient Encounter [id number] 04/24 [facility] [place] [facility] Outpatient Encounter [id number] 05/24 [facility] [place] [facility] OFF/OP EST MAY X REQ PHY/QHP [id number] Diagnos is: ICD-10- CM G82.20 Paraple mary kay, unspeci fied
VIOLA YOON NDA 05/28 [facility] WHEELCHAIR MNGMENT TRAINING [id number] Diagnos is: ICD-10- CM Z73.6 Limitat ion of activit ies due to disabil ity<br/ > BOUSLOG,RY AN P 06/10 [facility] Outpatient Encounter [id number] 10/28 [facility] [place] [facility] Outpatient Encounter [id number] 11/20 [facility] [place] [facility] Outpatient Encounter [id number] 05/12 [facility] [place] [facility] Outpatient Encounter [id number] 07/23 [facility] [place] [facility] Outpatient Encounter [id number] DEE ANDERS 07/28 [facility] Social History Combined list of available smoking, tobacco, and other social history from 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 Social History Type Response Date Comment Sour e Tobacco smoking status [facility] NEVER USED 05/28/20 22 [place] [place] [...]
--- OUTSIDE RECORDS SUMMARY | 2024-09-21 12:48 | XMS_ITS | Encounter Summary ---
Author Organization [facility] Address [address] [address] Care Team Providers Care Junior Accounting Clerk Name Role Phone Franklin Squires MD Primary Care Provider Encounter Details Date Type Department Care Team (Late st Contact Info) Description 12/16/2014 Correspondence External to External, [place] [address] MEDICARE PLAN OF CARE RECERT Social History [...] filedocumented in this encounter Care Teams Junior Accounting Clerk Relationship Specialty Start Date End Date Franklin Squires MD [address] [place] [address] [place] [address] PCP - General Family Practice 03/08/16 documented as of this encounter
--- OUTSIDE RECORDS SUMMARY | 2024-09-21 12:48 | XMS_ITS | Encounter Summary ---
Author Organization [facility] Address [address], [place] [address] Care Team Providers Care Supervisor Furnace Room Name Role Phone Franklin Squires MD Primary Care Provider [phone] Encounter Details Date Type Department Care Team (Latest Contact Info) Description 12/11/2017 Correspondence Physiatry/Physical Medicine at [facility] [address] [facility] [place] [address] May Randle MD [address] [place] [address] [employer] Social History Tobacco Use [...] filedocumented in this encounter Care Teams Supervisor Furnace Room Relationship Specialty Start Date End Date Franklin Squires MD [address] [place] [address] [place] [address] PCP - General Family Practice 03/08/16 documented as of this encounter
--- OUTSIDE RECORDS SUMMARY | 2024-09-21 12:48 | XMS_ITS | Encounter Summary ---
Author Organization [facility] Address [address] [address] Care Team Providers Care Protective Signal Repairer Name Role Phone Franklin Squires MD Primary Care Provider [phone] Encounter Details Date Type Department Care Team [...] on filedocumented in this encounter Care Teams Protective Signal Repairer Relationship Specialty Start Date End Date Franklin Squires MD 100 [facility] [address] PCP - General Family Practice 03/08/16 documented as of this encounter
--- OUTSIDE RECORDS SUMMARY | 2024-09-21 12:48 | XMS_ITS ---
Author Organization [facility] Address [address] [address] Care Team Providers Care Sheet Metal Shop Supervisor Name Role Phone Franklin Squires MD [...] 0 06/10/2014 History of anticoagulant therapy 02/17/2014 [facility] current use of anticoagulant therapy 0 02/17/2014 [...] documented for this patient in [facility]. Treatments may have been administered in another system. Resolved Problems Problem Noted Date Diagnosed Date Resolved Date Gait abnormality 01/17/2012 02/09/2015 Back pain 01/17/2012 02/09/2015 Paraplegia 04/04/2011 02/09/2015 Osteoporosis 03/06/2011 02/09/2015 Urinary tract infection 12/24/200603/11
--- OUTSIDE RECORDS SUMMARY | 2024-09-21 12:48 | XMS_ITS | Encounter Summary ---
[facility] Address [address] [address] Care Team Providers Care Political Researcher Name Role Phone Franklin Squires MD Primary Care Provider [phone] Encounter Details Date Type Department Care Team (Late st Contact Info) Description 07/28/2014 Outside Hospital External to External, Provider No address [address] ER VISIT/TRANSFER Social History Tobacco Use [...] on filedocumented in this encounter Care Teams Political Researcher Relationship Specialty Start Date End Date Franklin Squires MD 100 [facility] [place] [address] PCP - General Family Practice 03/08/16 documented as of this encounter
--- OUTSIDE RECORDS SUMMARY | 2024-09-21 12:48 | XMS_ITS | Encounter Summary ---
Author Organization [facility] Address [address], [place] [address] Care Team Providers Care Financial Institution Manager Name Role Phone Franklin Squires MD Primary Care Provider [phone] Encounter Details Date Type Department Care Team (Late st Contact Info) Description 06/11/2014 Correspondence [facility] 401 Physical Medicine 401 [facility] [place] [address] May Randle MD [address] [place] [address] [facility] Social History Tobacco Use Types Packs/Day [...] filedocumented in this encounter Care Teams Financial Institution Manager Relationship Specialty Start Date End Date Franklin Squires MD 100 [facility] [place] [address] PCP - General Family Practice 03/08/16 documented as of this encounter
--- OUTSIDE RECORDS SUMMARY | 2024-09-21 12:48 | XMS_ITS | Encounter Summary ---
Author Organization [facility] Address [address], [place] [address] Care Team Providers Care Retail Warehouse Supervisor Name Role Phone Franklin Squires MD Primary Care Provider [phone] Encounter Details Date Type Department Care Team (Late st Contact Info) Description 09/07/2014 Correspondence [facility] [place] [facility] Radiology [address] [place] [address] Radiology, Provider MRI SAFETY SHEET AND COMPATIBILITY [...] filedocumented in this encounter Care Teams Retail Warehouse Supervisor Relationship Specialty Start Date End Date Franklin Squires MD [address] [place], [place] [address] [address] PCP - General Family Practice 03/08/16 documented as of this encounter
--- OUTSIDE RECORDS SUMMARY | 2024-09-21 12:48 | XMS_ITS | Encounter Summary ---
Author Organization [facility] Address [address] [address] Care Team Providers Care Continuous Yarn Dyeing Machine Operator Name Role Phone Franklin Squires MD Primary Care Provider Encounter Details Date Type Department Care Team (Late st Contact Info) Description 08/20/2014 Outside Hospital External to [facility]-H/P Social History Tobacco Use [...] on filedocumented in this encounter Care Teams Continuous Yarn Dyeing Machine Operator Relationship Specialty Start Date End Date Franklin Squires MD [address] [place], [place] [address] [address] PCP - General Family Practice 03/08/16 documented as of this encounter
--- OUTSIDE RECORDS SUMMARY | 2024-09-21 12:48 | XMS_ITS | Encounter Summary ---
Author Organization [facility] Address [address] [address] Care Team Providers Care Family Resource Management Specialist Name Role Phone Franklin Squires MD Primary Care Provider Encounter Details Date Type Department Care Team (Late st Contact Info) Description 01/06/2016 Correspondence [facility] Radiology [address] [place] [address] Radiology, Provider MRI SAFETY SHEET AND COMPATIBILITY [...] filedocumented in this encounter Care Teams Family Resource Management Specialist Relationship Specialty Start Date End Date Franklin Squires MD [address] [place], [place] [address] [address] PCP - General Family Practice 03/08/16 documented as of this encounter
--- OUTSIDE RECORDS SUMMARY | 2024-09-21 12:48 | XMS_ITS | Encounter Summary ---
Author Organization [facility] Address [address] [address] Care Team Providers Care Patching Machine Operator Name Role Phone Franklin Squires MD Primary Care Provider [phone] Encounter Details Date Type Department Care Team (Late st Contact Info) Description 12/14/2014 Correspondence [facility] 401 Physical Medicine 401 [facility] [place] [address] May Randle MD [address] [place] [address] DETAILED PRODUCT DESCRIPTION Social History Tobacco Use [...] on filedocumented in this encounter Care Teams Patching Machine Operator Relationship Specialty Start Date End Date Franklin Squires MD 100 [facility] [place] [address] PCP - General Family Practice 03/08/16 documented as of this encounter
--- OUTSIDE RECORDS SUMMARY | 2024-09-21 12:48 | XMS_ITS | Encounter Summary ---
Author Organization [facility] Address [address], [place] [address] Care Team Providers Care Building Rental Manager Name Role Phone Franklin Squires MD Primary Care Provider Encounter Details Date Type Department Care Team (Late st Contact Info) Description 11/23/2015 Correspondence External to External, [place] [address] [facility] Social History Tobacco [...] filedocumented in this encounter Care Teams Building Rental Manager Relationship Specialty Start Date End Date Franklin Squires MD [address] [place] [address] [place] [address] PCP - General Family Practice 03/08/16 documented as of this encounter
--- OUTSIDE RECORDS SUMMARY | 2024-09-21 12:48 | XMS_ITS | Clinical Summary ---
Author Organization [facility] Address [address] [place] [address] Care Team Providers Care Braided Rug Maker Name Role Phone Franklin Squires MD Primary Care Provider [phone] Source Comments You are receiving this document [...] for each transition of care or referral. [employer] Allergies Active Allergy Reactions Criticality Noted Date [...] Comments Blood Pressure 120/63 01/18/2022 12:59 PM CANDY MIXER Pulse 87 01/18/2022 12:59 PM CANDY MIXER Temperature 36.3 ??C (97.4 ??F) 01/18/2022 12:59 [...] on patient's age to complete this topic Infant RSV Aged Out No longer eligi ble based on patient's age to complete this topic MCV4 Aged Out No longer eligi ble based on patient's age to complete this topic Medical Devices Implanted Type Area Weeder Device Identifier Shelf Expiration Date Model / Serial / Lot [id number] 4ml Tisseel Explanted:([place] ntity not on file) BIOLOGIC N/A: NECK Lynne Fenwall 09/10/2011 [id number] / [id number] / [id number] Description:posterior Cath Intrathecal Indura - [id number] Implanted:Qty: 1 on 05/09/2010 at [facility] DEVICE Right: LUMBAR SPINE Circl 01/18/2012 8709 / N/A / [id number] Cath Intrathecal Indura - [id number] Implanted:Qty: 1 on 05/29/2010 at [facility] DEVICE Circl 8709 / / Scr Indira Conic 7.3x80 - [id number] Implanted:Qty: 1 on 03/13/2011 at [facility] DEVICE Right: FEMUR DISTAL Synthes [facility] 0 / NONE / NONE Plt Lcp Cndl Rt 4.5x170 6h - [id number] Implanted:Qty: 1 on 03/13/2011 at [facility] DEVICE Right: FEMUR DISTAL Synthes [place] 222.656 / NONE / NONE Description:6 hole 170mm rig ht 4.5mm lcp condylar plate Scr Didier Ss Sftp 4.5x40 - [id number] Implanted:Qty: 1 on 03/13/2011 at [facility] DEVICE Left: FEMUR DISTAL Synthes [employer] 214.840 / NONE / NONE Scr Didier Ss Sftp 4.5x50 - [id number] Implanted:Qty: 1 on 03/13/2011 at [facility] DEVICE Left: FEMUR DISTAL [employer]ynthe[employer] [place] 214.850 / NONE / NONE Scr Indira Lk 5.0x80 - [id number] Implanted:Qty: 2 on 03/13/2011 at [facility] DEVICE Left: FEMUR DISTAL [employer]ynthes [place] 02.205.08 0 / NONE / NONE Scr Indira Lk 5.0x85 - [id number] Implanted:Qty: 2 on 03/13/2011 at [facility] DEVICE Left: FEMUR DISTAL Synthes [place] 02.205.08 5 / NONE / NONE Scr Lk Sftp T25 5.0x50 - [id number] Implanted:Qty: 1 on 03/13/2011 at [facility] DEVICE Left: FEMUR DISTAL [employer]ynthes [place] 212.219 / NONE / NONE Scr Lk Sftp T25 5.0x60 - [id number] Implanted:Qty: 1 on 03/13/2011 at [facility] DEVICE Left: FEMUR DISTAL [employer]ynthes [place] 212.221 / NONE / NONE Scr Indira Conic 7.3x85 - [id number] Implanted:Qty: 1 on 03/13/2011 at [facility] DEVICE Left: FEMUR DISTAL Synthes [place] 02.207.28 5 / NONE / NONE Plt Lcp Cndl Lt 4.5x170 6h - [id number] Implanted:Qty: 1 on 03/13/2011 at [facility] DEVICE Left: FEMUR DISTAL [employer]ynthes [place] 222.657 / NONE / NONE Description:6 hole 170mmleng th left 4.5mm lcp condylar plate. Scr Didier Sftp 3.5x60 F-Thrd - [id number] Implanted:Qty: 1 on 03/13/2011 at [facility] DEVICE Left: TIBIA PROXIMAL Synthes [place] 204.860 / NONE / NONE Scr Star Lk Sftp 3.5x32 - [id number] Implanted:Qty: 1 on 03/13/2011 at [facility] DEVICE Left: TIBIA PROXIMAL Synthes [place] 212.112 / NONE / NONE Scr Star Lk Sftp 3.5x55 - [id number] Implanted:Qty: 2 on 03/13/2011 at [facility] DEVICE Left: TIBIA PROXIMAL Synthes [place] 212.123 / NONE / NONE Scr Star Lk Sftp 3.5x60 - [id number] Implanted:Qty: 2 on 03/13/2011 at [facility] DEVICE Left: TIBIA PROXIMAL Synthes [place] 212.124 / NONE / NONE Plt Lcp M/Prox Lt 3.5x94 4h - [id number] Implanted:Qty: 1 on 03/13/2011 at [facility] DEVICE Left: TIBIA PROXIMAL [employer]ynthes [place] 239.955 / NONE / NONE Scr Didier Ss Sftp 4.5x36 - [id number] Implanted:Qty: 1 on 03/13/2011 at [facility] DEVICE Right: FEMUR DISTAL [employer]ynthes [place] 214.836 / NONE / NONE Scr Didier Ss Sftp 4.5x44 - [id number] Implanted:Qty: 1 on 03/13/2011 at [facility] DEVICE Right: FEMUR DISTAL [employer]ynthes [place] 214.844 / NONE / NONE Scr Indira Lk 5.0x75 - [id number] Implanted:Qty: 1 on 03/13/2011 at [facility] DEVICE Right: FEMUR DISTAL Synthes [place] 02.205.07 5 / NONE / NONE Scr Indira Lk 5.0x85 - [id number] Implanted:Qty: 2 on 03/13/2011 at [facility] DEVICE Right: FEMUR DISTAL Synthes [place] 02.205.08 5 / NONE / NONE Scr Lk Sftp T25 5.0x44 - [id number] Implanted:Qty: 1 on 03/13/2011 at [facility] DEVICE Right: FEMUR DISTAL [employer]ynthes [place] 212.216 / NONE / NONE Scr Lk Sftp T25 5.0x65 - [id number] Implanted:Qty: 1 on 03/13/2011 at [facility] DEVICE Right: FEMUR DISTAL Synthes [place] 212.222 / NONE / NONE Plt Lp T Ti Str 4h - [id number] Implanted:Qty: 3 on 07/28/2014 by Cooper Shelley MD at [facility] DEVICE Right: SKULL Synthes [place] 421.504 / / Scr Matrix Sfdr 4mm - [id number] Implanted:Qty: 6 on 07/28/2014 by Cooper Shelley MD at [facility] DEVICE Right: SKULL Synthes [place] 04.503.10 4.01 / / Lead Linear 3-4 8 Contact 50cm - [id number] Implanted:Qty: 1 on 03/08/2016 by Zelalem Cohen DO at [facility] DEVICE N/A: OTHER-SEE DESCRIPTION [facility] 09/10/2017 [id number] 2500 / / [id number] Description:LUMBAR Lead Linear 3-4 8 Contact 50cm - [id number] Implanted:Qty: 1 on 03/08/2016 by Zelalem Cohen DO at [facility] DEVICE N/A: OTHER-SEE DESCRIPTION [facility] 09/10/2017 [id number] 2500 / / [id number] Description:LUMBAR Lead Linear 3-4 8 Contact 50cm - [id number] Implanted:Qty: 1 on 03/08/2016 by Zelalem Cohen DO at [facility] DEVICE N/A: OTHER-SEE DESCRIPTION [facility] 09/10/2017 [id number] 2500 / / [id number] Description:LUMBAR Lead Linear 3-4 8 Contact 50cm - [id number] Implanted:Qty: 1 on 03/08/2016 by Zelalem Cohen DO at [facility] DEVICE N/A: OTHER-SEE DESCRIPTION [facility] 09/10/2017 [id number] 2500 / / [id number] Description:LUMBAR Lead Linear 3-4 8 Contact 50cm - [id number] Implanted:Qty: 1 on 05/24/2016 by Zelalem Cohen DO at [facility] DEVICE N/A: SPINE LUMBAR POSTERIOR [facility] 01/31/2018 [id number] 2500 / [id number] / Lead Linear 3-4 8 Contact 50cm - [id number] Implanted:Qty: 1 on 05/24/2016 by Zelalem Cohen DO at [facility] DEVICE N/A: SPINE LUMBAR POSTERIOR [facility] 04/26/2018 [id number] 2500 / [id number] / Lead Linear 3-4 8 Contact 50cm - [id number] Implanted:Qty: 1 on 05/24/2016 by Zelalem Cohen DO at [facility] DEVICE N/A: SPINE LUMBAR POSTERIOR [facility] 04/26/2018 [id number] 2500 / [id number] / Lead Linear 3-4 8 Contact 50cm - [id number] Implanted:Qty: 1 on 05/24/2016 by Zelalem Cohen DO at [facility] DEVICE N/A: SPINE LUMBAR POSTERIOR [facility] 04/26/2018 [id number] 2500 / [id number] / Generator Pulse Spectra - [id number] Implanted:Qty: 1 on 05/24/2016 by Zelalem Cohen DO at [facility] DEVICE N/A: SPINE LUMBAR POSTERIOR [facility] 05/08/2018 [id number] 20 / [id number] / [id number] [employer] - [id number] Implanted:Qty: 1 on 05/24/2016 by Zelalem Cohen DO at [facility] DEVICE N/A: SPINE LUMBAR POSTERIOR [facility] 05/02/2018 [id number] 60 / / [id number] [employer] - [id number] Implanted:Qty: 1 on 05/24/2016 by Zelalem Cohen DO at [facility] DEVICE N/A: SPINE LUMBAR POSTERIOR [facility] 02/28/2018 [id number] 60 / / [id number] Procedures Procedure Name Priority Date/Time Associated Diagnosis Comments CREATININE/GFR, WB POC Routine 01/06/2016 12:04 PM CANDY MIXER Back pain, 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 HGB A1C Routine 07/29/2014 3:19 AM CDT from Last 3 Months or Most Recently Relevant to Health Maintenance Results * CREATININE/GFR, WB POC (01/06/2016 12:04 PM CANDY MIXER) Pathologist [facility] Creat Whole Blood 0.9 0.66 - 1.25 mg/dl [facility] GFR, Estimated >60 >60 ml/min/1.7 3m2 [facility] GFR, Est., If Black >60 >60 ml/min/1.7 3m2 [facility] 01/06/2016 12:0 4 PM CANDY MIXER 01/06/2016 12:21 PM CANDY MIXER Trae Blair MD LAB_1 [facility] [phone] * (ABNORMAL) HGB A1C (07/29/2014 3:19 AM CDT) Hgb A1c 6.4(H) 4.3 - 6.1 % [facility] Comment: The usual A1C goal for people with diabetes, age 18-75, is <8.0%. Physicians may recommend a higher or lower goal for specific individuals. 07/29/2014 3:19 AM CDT 07/29/2014 3:22 AM CDT Narrative [facility] - 07/29/2014 12:53 PM CDT [facility]formed at [facility], [address] [place] [address] ??[id number] Jamaica Wei PA-C LAB_[address] [address] from Last 3 Months or Most Recently [...] 5:44 PM 07/28/2014 6:50 PM Care Teams Braided Rug Maker Relationship Specialty Start Date End Date Franklin Squires MD [address] [place] [address] [place] [address] PCP - General Family Practice 03/08/16
--- OUTSIDE RECORDS SUMMARY | 2024-09-21 12:48 | XMS_ITS | Encounter Summary ---
Author Organization [facility] [address], [place] [address] Care Team Providers Care Bottoming Room Inspector Name Role Phone Franklin Squires MD Primary Care Provider [phone] Encounter Details Date Type Department Care Team (Late st Contact Info) Description 10/26/2013 Correspondence [facility] Physical Therapy [address] [place] [address] Trudi Raymundo, PT [address] [place] [id number] LETTER OF MEDICAL NECESSITY Social History Tobacco [...] Raymundo, PT - 10/26/2013 12:00 AM CST LRY POLISHER documented in this encounter Plan of Treatment Not on file documented as of this encounter Visit Diagnoses Not on filedocumented in this encounter Care Teams Bottoming Room Inspector Relationship Specialty Start Date End Date Franklin Squires MD 100 [facility] [address] PCP - General Family Practice 03/08/16 documented as of this encounter
--- OUTSIDE RECORDS SUMMARY | 2024-09-21 12:48 | XMS_ITS | Encounter Summary ---
Author Organization [facility] Address [address] [address] Care Team Providers Care Home Delivery Driver Name Role Phone Franklin Squires MD [...] on filedocumented in this encounter Care Teams Home Delivery Driver Relationship Specialty Start Date End Date Franklin Squires MD 100 [facility] [place] [address] PCP - General Family Practice 03/08/16 documented as of this encounter
--- OUTSIDE RECORDS SUMMARY | 2024-09-21 12:48 | XMS_ITS | Encounter Summary ---
Author Organization [facility] Address [address], [place] [address] Care Team Providers Care Solar Sales Associate Name Role Phone Franklin Squires MD Primary Care Provider Encounter Details Date Type Department Care Team (Late st Contact Info) Description 08/22/2014 Outside Hospital External to [facility] HOSP-D/C SUMMARY Social History Tobacco [...] in this encounter Care Teams Solar Sales Associate Relationship Specialty Start Date End Date Franklin Squires MD 100 [facility] [address] PCP - General Family Practice 03/08/16 documented as of this encounter
--- OUTSIDE RECORDS SUMMARY | 2024-09-21 12:48 | XMS_ITS | Encounter Summary ---
Author Organization [facility] Address [address], [place] [address] Care Team Providers Care Produce Shipper Name Role Phone Franklin Squires MD Primary Care Provider Encounter Details Date Type Department Care Team (Late st Contact Info) Description 02/09/2016 Correspondence [facility] 401 NeuroSurgery 401 [facility] [place], [place] [id number] Jodi Aguila PA-C [address] [place] [address] PATIENT LIFT PRESCRIPTION Social History Tobacco Use [...] filedocumented in this encounter Care Teams Produce Shipper Relationship Specialty Start Date End Date Franklin Squires MD 100 [facility] [place] [id number] PCP - General Family Practice 03/08/16 documented as of this encounter
--- OUTSIDE RECORDS SUMMARY | 2024-09-21 12:48 | XMS_ITS | Encounter Summary ---
Author Organization [facility] Address [address], [place] [address] Care Team Providers Care Hot Worker Name Role Phone Franklin Squires MD Primary Care Provider [phone] Encounter Details Date Type Department Care Team (Latest Contact Info) Description 06/04/2014 Correspondence [facility] 401 Interventional Pain Management 401 [facility] [place] [address] Zelalem Cohen, DO [address] [place] [address] MEDICAID PT INFORMATION EMPI RECOVERY Social History [...] filedocumented in this encounter Care Teams Hot Worker Relationship Specialty Start Date End Date Franklin Squires MD 100 [facility] [place] [address] PCP - General Family Practice 03/08/16 documented as of this encounter
--- OUTSIDE RECORDS SUMMARY | 2024-09-21 12:48 | XMS_ITS | Encounter Summary ---
Author Organization [facility] Address [address] [address] Care Team Providers Care Candy Dipper Name Role Phone Franklin Squires MD [...] on filedocumented in this encounter Care Teams Candy Dipper Relationship Specialty Start Date End Date Franklin Squires MD 100 [facility] [place] [address] PCP - General Family Practice 03/08/16 documented as of this encounter
--- OUTSIDE RECORDS SUMMARY | 2024-09-21 12:48 | XMS_ITS | Encounter Summary ---
Author Organization [facility] [address] [address] Care Team Providers Care Extension Service Supervisor Name Role Phone Franklin Squires MD Primary Care Provider Encounter Details Date Type Department Care Team (Late st Contact Info) Description 11/10/2014 Correspondence [facility] Physical Therapy [address] [place] [address] Trudi Raymundo, PT [address] [place] [address] LETTER OF MEDICAL NECESSITY Social History Tobacco [...] on filedocumented in this encounter Care Teams Extension Service Supervisor Relationship Specialty Start Date End Date Franklin Squires MD 100 [facility] [place] [address] PCP - General Family Practice 03/08/16 documented as of this encounter
--- OUTSIDE RECORDS SUMMARY | 2024-09-21 12:48 | XMS_ITS | Encounter Summary ---
Author Organization [facility] [address], [place] [address] Care Team Providers Care Computer Forwarding System Markup Clerk Name Role Phone Franklin Squires MD Primary Care Provider Encounter Details Date Type Department Care Team (Late st Contact Info) Description 02/05/2014 Correspondence [facility] Physical Therapy [address] [place] [address] Trudi Raymundo, PT [address] [place] [address] LETTER OF MEDICAL NECESSITY FOR A WHEELCHAIR [...] filedocumented in this encounter Care Teams Computer Forwarding System Markup Clerk Relationship Specialty Start Date End Date Franklin Squires MD 100 [facility] [place] [address] PCP - General Family Practice 03/08/16 documented as of this encounter
--- OUTSIDE RECORDS SUMMARY | 2024-09-21 12:48 | XMS_ITS | Encounter Summary ---
Author Organization [facility] Address [address], [place] [address] Care Team Providers Care Photographer Apprentice Lithographic Name Role Phone Franklin Squires MD Primary Care Provider Encounter Details Date Type Department Care Team (Late st Contact Info) Description 03/11/2014 Correspondence [facility] 401 Interventional Pain Management 401 [facility] [address] Zelalem Cohen, DO [address] [place] [address] EMPI Social History Tobacco Use Types Packs/Day [...] on filedocumented in this encounter Care Teams Photographer Apprentice Lithographic Relationship Specialty Start Date End Date Franklin Squires MD 100 [facility] [place] [address] PCP - General Family Practice 03/08/16 documented as of this encounter
--- OUTSIDE RECORDS SUMMARY | 2024-09-21 12:48 | XMS_ITS | Encounter Summary ---
Author Organization [facility] Address [address], [place] [address] Care Team Providers Care Sql Server Dba Developer Name Role Phone Franklin Squires MD Primary Care Provider [phone] Encounter Details Date Type Department Care Team [...] Squires MD 100 [facility] [place] [address] PCP - General Family Practice 03/08/16 documented as of this encounter
--- OUTSIDE RECORDS SUMMARY | 2024-09-21 12:48 | XMS_ITS | Encounter Summary ---
Author Organization [facility] Address [address], [place] [address] Care Team Providers Care Yeast Supervisor Name Role Phone Franklin Squires MD Primary Care Provider [phone] Encounter Details Date Type Department Care Team (Late st Contact Info) Description 06/07/2015 Correspondence [facility] Radiology [address] [place] [address] Radiology, Provider MRI SAFETY SHEET AND COMPATIBILITY [...] on filedocumented in this encounter Care Teams Yeast Supervisor Relationship Specialty Start Date End Date Franklin Squires MD [address] [place], [place] [address] [address] PCP - General Family Practice 03/08/16 documented as of this encounter
--- OUTSIDE RECORDS SUMMARY | 2024-09-21 12:48 | XMS_ITS | Encounter Summary ---
Author Organization [facility] Address [address], [place] [address] Care Team Providers Care Robotic Toy Inventor Name Role Phone Franklin Squires MD Primary Care Provider Encounter Details Date Type Department Care Team (Late st Contact Info) Description 05/04/2014 Correspondence [facility] 401 Physical Medicine 401 [place] [address] May Randle MD [address] [place] [address] LETTER OF MEDICAL NECESSITY FOR A WHEELCHAIR [...] filedocumented in this encounter Care Teams Robotic Toy Inventor Relationship Specialty Start Date End Date Franklin Squires MD 100 [facility] [place] [address] PCP - General Family Practice 03/08/16 documented as of this encounter
--- OUTSIDE RECORDS SUMMARY | 2024-09-21 12:48 | XMS_ITS | Encounter Summary ---
Author Organization [facility] Address [address], [place] [address] Care Team Providers Care Medical Record Administrator Name Role Phone Franklin Squires MD Primary Care Provider Encounter Details Date Type Department Care Team (Late st Contact Info) Description 12/16/2013 Correspondence [facility] Radiology [address] [place] [address] Radiology, Provider MRI SAFETY SHEET AND COMPATIBILITY [...] in this encounter Care Teams Medical Record Administrator Relationship Specialty Start Date End Date Franklin Squires MD 100 [facility] [place] [address] PCP - General Family Practice 03/08/16 documented as of this encounter
--- OUTSIDE RECORDS SUMMARY | 2024-09-21 12:48 | XMS_ITS | Encounter Summary ---
Author Organization [facility] [address], [place] [address] Care Team Providers Care Integrated Circuit Design Engineer Name Role Phone Franklin Squires MD Primary Care Provider Encounter Details Date Type Department Care Team (Late st Contact Info) Description 07/08/2015 Correspondence [facility] Physical Therapy [address] [place] [address] Trudi Raymundo, PT [address] [place] [address] ADDENDUM FOR LETTER OF MEDICAL NECESSITY Social [...] on filedocumented in this encounter Care Teams Integrated Circuit Design Engineer Relationship Specialty Start Date End Date Franklin Squires MD [address] [facility] [place] [address] PCP - General Family Practice 03/08/16 documented as of this encounter
--- OUTSIDE RECORDS SUMMARY | 2024-09-21 12:49 | XMS_ITS | Encounter Summary ---
Author Organization [facility] Address [address], [place] [address] Care Team Providers Care Coordinator Integrated Marketing Name Role Phone Franklin Squires MD Primary Care Provider [phone] Encounter Details Date Type Department Care Team (Late st Contact Info) Description 04/24/2012 Correspondence [facility] Radiology [address] [place] [address] Radiology, Provider MRI SAFETY SHEET AND COMPATIBILITY [...] on filedocumented in this encounter Care Teams Coordinator Integrated Marketing Relationship Specialty Start Date End Date Franklin Squires MD 100 [facility] [place] [address] PCP - General Family Practice 03/08/16 documented as of this encounter
--- OUTSIDE RECORDS SUMMARY | 2024-09-21 12:49 | XMS_ITS | Encounter Summary ---
Author Organization [facility] Address [address], [place] [address] Care Team Providers Care Travel Registered Nurse [...] MD [facility] [address] PCP - General Family Practice 03/08/16 documented as of this encounter
--- OUTSIDE RECORDS SUMMARY | 2024-09-21 12:49 | XMS_ITS | Encounter Summary ---
Author Organization [facility] Address [address] [address] Care Team Providers Care Assistant Media Buyer Name Role Phone Franklin Squires MD Primary Care Provider Encounter Details Date Type Department Care Team (Late st Contact Info) Description 11/13/[address] [facility] Radiology [address] [place] [address] Radiology, Provider MRI SAFETY SHEET AND COMPATIBILITY [...] RADIOLOGY, PROVIDER - 11/13/2012 12:00 AM CST RPRISE SECURITY ARCHITECT documented in this encounter Plan of Treatment Not on file documented as of this encounter Visit Diagnoses Not on filedocumented in this encounter Care Teams Assistant Media Buyer Relationship Specialty Start Date End Date Franklin Squires MD 100 [facility] [place] [address] PCP - General Family Practice 03/08/16 documented as of this encounter
--- OUTSIDE RECORDS SUMMARY | 2024-09-21 12:49 | XMS_ITS | Encounter Summary ---
Author Organization [facility] Address [address] [address] Care Team Providers Care Veneer Stacker Name Role Phone Franklin Squires MD Primary Care Provider Encounter Details Date Type Department Care Team (Late st Contact Info) Description 04/20/[address] [address] Radiology, Provider MRI SAFETY SHEET AND COMPATIBILITY [...] filedocumented in this encounter Care Teams Veneer Stacker Relationship Specialty Start Date End Date Franklin Squires MD 100 [facility] [place] [address] PCP - General Family Practice 03/08/16 documented as of this encounter
--- OUTSIDE RECORDS SUMMARY | 2024-09-21 12:49 | XMS_ITS | Encounter Summary ---
Author Organization [facility] Address [address], [place] [address] Care Team Providers Care Unix Manager Name Role Phone Franklin Squires MD Primary Care Provider [phone] Encounter Details Date Type Department Care Team (Late st Contact Info) Description 09/17/2013 Correspondence External to External, [place] [address] EMPOWERMENT RULES Social History Tobacco Use Types [...] External, Provider - 09/17/2013 12:00 AM CST TLIGHT POWDER MIXER documented in this encounter Plan of Treatment Not on file documented as of this encounter Visit Diagnoses Not on filedocumented in this encounter Care Teams Unix Manager Relationship Specialty Start Date End Date Franklin Squires MD 100 [facility] [place] [address] PCP - General Family Practice 03/08/16 documented as of this encounter
--- OUTSIDE RECORDS SUMMARY | 2024-09-21 12:49 | XMS_ITS | Encounter Summary ---
Author Organization [facility] Address [address], [place] [address] Care Team Providers Care Ammonium Nitrate Crystallizer Name Role Phone Franklin Squires MD Primary Care Provider [phone] Encounter Details Date Type Department Care Team (Late st Contact Info) Description 07/23/2013 Correspondence [facility] 401 Interventional Pain Management 401 [facility] [place] [address] Zelalem Cohen DO [address] [place] [address] EXPRESS SCRIPT Social History Tobacco Use Types [...] Cohen MD - 07/23/2013 12:00 AM CDT IGN COLLECTION CLERK documented in this encounter Plan of Treatment Not on file documented as of this encounter Visit Diagnoses Not on filedocumented in this encounter Care Teams Ammonium Nitrate Crystallizer Relationship Specialty Start Date End Date Franklin Squires MD 100 [facility] [place] [address] PCP - General Family Practice 03/08/16 documented as of this encounter
--- OUTSIDE RECORDS SUMMARY | 2024-09-21 12:49 | XMS_ITS | Encounter Summary ---
Author Organization [facility] Address [address] [address] Care Team Providers Care Beveling And Edging Machine Operator Name Role Phone Franklin Squires [...] on filedocumented in this encounter Care Teams Beveling And Edging Machine Operator Relationship Specialty Start Date End Date Franklin Squires MD 100 [facility] [place] [address] PCP - General Family Practice 03/08/16 documented as of this encounter
== END 2024-09-21 12:45 | disposition home or self-care (01) ==
LOC: WOUND 12:44
PROVIDERS: PCP Family Medicine; Visit Provider Family Medicine
DX: M86.68 Other chronic osteomyelitis, other site (principal); L89.324 Pressure ulcer of left buttock, stage 4; E11.622 Type 2 diabetes mellitus with other skin ulcer; G82.50 Quadriplegia, unspecified; Z99.3 Dependence on wheelchair
CPT/HCPCS: 11042

== ENCOUNTER 2024-09-28 12:43 | Outpatient (CLI) | payer MEDICARE, OTHER, SELFPAY ==
--- OUTSIDE RECORDS SUMMARY | 2024-09-28 12:46 | XMS_ITS | Encounter Summary ---
Author Name [facility] [facility] [place] Address [address] [place] [address] Care Team Providers Care Pulling Machine Operator Name Role Phone SHANTAL HANSON Primary Care [...] PART B Jul 12, 2004 PART B [id number] PP47 [phone] MIKAYLAF RED PATIENT MEDICARE (WNR) MEDICARE (M) PART A Oct 11, 2002 PART A [id number] [id number] [phone] Kasie DEGROOT RED PATIENT Selected Encounter This section includes the information on record at [place] for the Encounter. Date/Time Encounter Type Encounter Description Reason Pro vider Source May 12, 2024 02:14 PM Outpatient Encounter PROS AND SENS AIDS IHE Encounter Template Text not used by [place] Plan of Treatment: Future Appointments (+ 6 months) and Future Tests (+/- 45 days) The Plan of Treatment section includes future care activities for the patient from all [place] treatmentfacilities. This section includes future appointments and future orders which are active, pending or scheduled. Future Appointments This section includes appointments that were scheduled to occur 6 months from the date of the Encounter, up to a maximum of 20 appointments. The data comes from all [place] treatment facilities. Appointment Date/Time Appointment Type Appointme nt Facility Name Jul 20, 2024 07:00 AM AMBULATORY - NONE [facility] Advance Directives: All historical and current Section Date Range: From patient's date of to the date document was created. This section includes ALL of a patient's completed or amended [place] Advance and Rescinded Directives. The entries below indicate that a directive exists for the patient, but an actual copy is not included with this document. The data comes from all [facility]. Date Advance Directives Provider Source [...] Ot to nikita. /el/ [employer] Signed: 05/12/2024 14:20 Receipt Acknowledged By: 05/12/2024 14:31 /el/ LATISHA BUTT, PT, DPT, NCS, ATP PHYSICAL THERAPIST [facility]
--- OUTSIDE RECORDS SUMMARY | 2024-09-28 12:46 | XMS_ITS | Encounter Summary ---
Author Name [facility] Organization [facility] [place] Address [address] [place] [address] Care Team Providers Care Chemical Sales Representative Name Role Phone SHANTAL HANSON Primary Care [...] PART B Jul 12, 2004 PART B [id number] [id number] [phone] MIKAYLA,F RED PATIENT MEDICARE (WNR) MEDICARE (M) PART A Oct 11, 2002 PART A [id number] [id number] [phone] Kasie CULLEN RED PATIENT Selected Encounter This [...] 05, 2023 ADVANCE DIRECTIVE DISCUSSION GUSTAVO ABAD [facility] Encounter Notes: All associated encounter notes This [...] Date Given: 07/23/2024 Clinician: Jose Anders Location: [facility] Completed with over the phone : Carl [...] Understood. Q10. TOILETING *7 Are enrolled in [place] Bowel and Bladder Program. 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 [...] Medical Record /el/ Jose Anders RN Community Voting Machine Repairer Signed: 07/28/2024 09:14 07/28/2024 ADDENDUM STATUS: COMPLETED /caregiver educated on Personal Care Services (PCS) available: Yes PCS requested by /caregiver: Home Health Aide (CHILLING HOOD OPERATOR) Are first range hours adequate for this ?: [X] Yes. [] No. Second range hours [facility] Distribution of hours ([place] copy[place]paste [place] [facility] [place] Home Health Aide approved: (hours and frequency): [9] hours/week Vendor has been educated on requested services and hours allotted. /el/ Jose Anders RN Community Voting Machine Repairer Signed: 07/28/2024 09:14 JOSE ANDERS [facility]
--- OUTSIDE RECORDS SUMMARY | 2024-09-28 12:46 | XMS_ITS | Clinical Summary ---
Author Organization [facility] Address [place], [place] [address] Care Team Providers Care Improvement Advisor Name Role Phone Zelalem Cohen MD Unavailable [phone] May Randle) Unavailable Franklin Squires MD Primary Care Provider Fred Craft Unavailable [phone] Diane Charles MD Unavailable Julia Ware RN Unavailable [phone] Allergies Active Allergy Reactions Criticality Noted Date [...] bedIndications:Non-heal ing surgical wound, subsequent encounter Drive [employer] 8 inch low loss mattress and 1/2 rails. Semi-electric bed. Length of need 6 weeks. Bed pile header:no 1 unit 018 Active acetaminophen (TYLENOL EXTRA STRGTH) 500 mg tabletIndications:fever ,pain Take 1,000 mg by mouth three times daily. Max acetaminophen dose: 4000mg in 24 hrs. Active sodium chloride (AYR SALINE NASL) Inhale 2-3 Sprays in the nostril(s) once daily if needed. Active Ostomy Supplies miscIndications:Neuroge halina bowel,Colostomy in place () As directed. SenSura Kamran Click Ostomy Barrier with belt tabs 60mm, Cut-to-Fit 01/16 - 2 11/18. Item #[id number]. 1 Each 11 021 Active ascorbic acid, [...] daily 12 Each 023 Active potassium chloride (KLOR-CON M10) 10 [...] DAY 180 Tablet 024 Active warfarin (COUMADIN) 5 mg [...] in the evening or as directed Active atorvastatin (LIPITOR) 40 mg tabletIndications:Pure hypercholesterolemia TAKE ONE TABLET BY MOUTH AT BEDTIME 90 Tablet 2 Active ARIPiprazole (ABILIFY) 2 mg tabletIndications:Delus ions of parasitosis (HC) Take 1 Tablet (2 mg) by mouth two times daily. 180 Tablet 3 023 2023 Discontinued atorvastatin (LIPITOR) 40 mg tabletIndications:Pure hypercholesterolemia Take 1 Tablet (40 mg) by mouth at bedtime. 90 Tablet 2 023 2023 Discontinued famotidine (PEPCID) 20 mg [...] 09/27/2008 Assessment & Plan (01/19/2012 9:22 AM AUTOMATIC HEMMER): Orthopedics: Dr. Bright PM&R: Dr. May Randle Pain Management: Dr. 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 Pure hypercholesterolemia 12/24/2006 Neurogenic bladder 12/24/2006 Neurogenic bowel 12/24/2006 Hypertension Resolved Problems Problem Noted Date Diagnosed Date Resolved Date Soft tissue infection 10/22/20232023 roasterman current use of anticoagulant 06/20/2023 01/08/2024 Cellulitis of scrotum 05/08/20232022 UTI (urinary tract infection) 05/08/2023 06/20/2023 Quadriplegia, unspecified 10/23/2022 Continuous opioid dependence 07/01/2022 08/20/2022 Urinary tract infection asso ciated with indwelling urethral catheter 10/05/2021 06/20/2023 Hypertensive urgency 10/04/2021 023 Type 2 [facility] current use of insulin [...] 10/01/2007 Overview (04/16/2007): S/P IVC Filter intermediate (current) use of anticoagulants 02/19/2007 09/27/2008 Depressive disorder, not elsewhere classified 02/14/20 07 01/15/2018 Abnormality of gait 12/24/2006 09/27/20 08 Urinary tract infection, site not specified 12/24/2006 01/15/2018 BENIGN ESSENTIAL HYPERTENSION 12/24/2006 04/17/2016 Overview (12/24/2006): borderline Necrotizing fasciitis 2018 Type 2 diabetes mellitus Encounters Date Type Department Care Team Description 09/25/2024 3:19 PM AUTOMATIC HEMMER - 09/25/2024 11:59 PM AUTOMATIC HEMMER Hospital Encounter [facility] [address] [place] [address] Nighat Fierro MD 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); Chronic osteomyelitis of symphysis pubis (HC) 09/25/2024 Anticoagulation (warfarin) [facility] [address] [place] [address] 1, [facility] Anticoagulation (Acelis) 09/25/2024 Travel 09/22/2024 2:30 PM AUTOMATIC HEMMER - 09/22/2024 11:59 PM AUTOMATIC HEMMER Hospital Encounter [facility] [address] [facility] [place] [address] 09/22/2024 Travel 09/20/2024 Refill [facility] 100 [facility] [place] [address] Franklin Squires MD Refill Request (Atorvastatin) 09/18/2024 Anticoagulation (warfarin) [address] [address] 1, [facility] Anticoagulation ( ACELIS) 09/17/2024 11:29 AM AUTOMATIC HEMMER - 09/17/2024 11:59 PM AUTOMATIC HEMMER Hospital Encounter [address] [place] [address] Wound infection (Primary Dx) 09/17/2024 Travel 09/16/[address] [place] [address] Franklin Squires MD Anticoagulation (orders) 09/11/2024 Anticoagulation (warfarin) [address] [address] , [facility] Anticoagulation (Acelis) 09/10/2024 1:56 PM CDT - 09/10/2024 11:59 PM CDT Hospital Encounter [address] [place] [address] Wound infection (Primary Dx) 09/10/2024 1:15 PM CDT Office Visit [address] [place] [address] Diane Charles MD Consult (Neurogenic bladder) 09/10/2024 Travel 09/07/2024 Hospital/[facility] Telepho ne Encounter [address] [place] [address] Yen Hernandez RN Pre Procedure (PVP) 09/07/[address] [place] [address] Franklin Squires MD Form (Case communication and Plan of Care.) 09/04/2024 Anticoagulation (warfarin) [address] [place] [address] , [facility] Anticoagulation (Acelis) 09/03/2024 1:53 PM CDT - 09/03/2024 11:59 PM CDT Hospital Encounter [facility] [address] [facility] [place] [address] Wound infection 09/03/2024 Travel 09/03/[address] [address] , [facility] Refill Request (Warfarin) 09/02/2024 Telephone [facility] [address] [facility] [place] [address] Crorie Gomez, PAYROLL BENEFITS CLERK Appointment 09/01/[address] [phone] Franklin Squires MD Refill Request (Oxycodone) 08/30/[address] [address] Franklin Squires MD Refill Request (Famotidine, Aripiprazole) 08/29/2024 Anticoagulation (warfarin) [address] [address] 1, [facility] Anticoagulation (Acelis) 08/28/2024 Telephone [facility] 100 [place] [address] Franklin Squires MD Form (Case communication) 08/27/2024 11:25 AM CDT - 08/27/2024 11:59 PM CDT Hospital Encounter [facility] [address] [facility] [place] [address] Wound infection (Primary Dx) 08/27/2024 Travel 08/25/2024 Hospital/[facility] Telepho ne Encounter [facility] 200 [facility] [place] [address] Yen Hernandez, VALERIE Pre Procedure (PVP) 08/21/2024 1:00 PM CDT Nurse/Clinic Staff Only [address] [address] Nurse/Clinic Staff Only 08/21/2024 Travel 08/21/2024 Anticoagulation (warfarin) [address] [address] , [facility] Anticoagulation (Acelis) 08/20/2024 11:27 AM CDT - 08/20/2024 11:59 PM CDT Hospital Encounter [address] [place] [address] Wound infection (Primary Dx) 08/19/2024 3:00 PM CDT Nurse/Clinic Staff Only [address] [address] Nurse/Clinic Staff Only (Cath Change ) 08/19/[address] [address] Diane Charles MD Appointment 08/19/2024 Travel 08/18/[address] [address] Franklin Squires MD Questions 08/14/2024 Nurse Triage [address] [address] Franklin Squires MD Catheter Problem 08/14/2024 Anticoagulation (warfarin) [address] [address] 1, [facility] Anticoagulation (Acelis) 08/13/2024 11:23 AM CDT - 08/13/2024 11:59 PM CDT Hospital Encounter [facility] 200 [facility] [place] [address] Wound infection 08/13/2024 Travel 08/13/2024 Hospital/[facility] Telepho ne Encounter [facility] [address] [facility] [place] [address] Yen Hernandez RN Pre Procedure (PVP) 08/07/2024 Anticoagulation (warfarin) [facility] [address] [facility] [address] 1, [facility] Anticoagulation (Acelis) 08/06/2024 11:27 AM CDT - 08/06/2024 11:59 PM CDT Hospital Encounter [facility] [address] [facility] [place] [address] Wound infection (Primary Dx) 08/06/2024 Travel 08/06/2024 Hospital/[facility] Telepho ne Encounter [facility] [address] [facility] [place] [address] Yen Hernandez RN Pre Procedure (PVP) 08/04/2024 Telephone [facility] [address] [place] [address] Franklin Sqiures MD Form 07/31/2024 Anticoagulation (warfarin) [address] [place] [address] 1, [facility] Anticoagulation (Acelis) 07/30/2024 11:25 AM CDT - 07/30/2024 11:59 PM CDT Hospital Encounter [facility] [address] [facility] [place] [address] Wound infection (Primary Dx) 07/30/2024 Hospital/[facility] Telepho ne Encounter [address] [place] [place] [address] Yen Hernandez, VALERIE Pre Procedure (PVP) 07/29/2024 1:30 PM CDT Nurse/Clinic Staff Only [facility] [address] [place] [address] Nurse/Clinic Staff Only (Suprapubic Cath) 07/29/[address] [phone] Franklin Squires MD Refill Request (Oxycodone) 07/29/2024 Travel 07/27/2024 Anticoagulation (warfarin) [address] [address] [place] [address] Inr Clinic [facility] Anticoagulation (Acelis) 07/24/[address] [address] Franklin Squires MD Anticoagulation (new med) 07/23/2024 8:46 AM CDT - 07/23/2024 2:33 PM CDT Hospital Encounter [facility] [address] [place] [address] Yudith Mcgraw NP Wound infection (Primary Dx) Discharge Disposition: Home Health 07/23/2024 Orders Only [facility] [address] [place] [address] Yudith Mcgraw NP 1 scan: INFUSION CEFEPIME 2 MG 07/23/2024 Travel 07/22/2024 Telephone [facility] [address] [place] [address] Yen Hernandez, RN Appointment 07/22/2024 Telephone [facility] [address] [place] [address] Jennyfer Penny RN 07/15/2024 Telephone [facility] [address] [place] [address] Franklin Squires MD Anticoagulation (Order renewal) 07/15/2024 Anticoagulation (warfarin) [address] [place] [address] , [facility] Anticoagulation (Acelis ) 07/14/[address] [place] [address] Franklin Squires MD Form (Case Communication- Major drug interactions-( Warfarin) - Home Health Certification and Plan of Care - 07/08/2024-09/05/2024) 07/14/[address] [place] [address] Franklin Squires MD Refill Request (Bupropion) 07/09/2024 Orders Only [facility] Scanner 1 scan: (1-Ord) [facility], CT PELVIS W CON, 07/09/2024 07/08/2024 1:30 PM CDT Nurse/Clinic Staff Only [address] [place] [address] Nurse/Clinic Staff Only (Cath Change ) 07/08/2024 Travel 07/07/[address] [place] [address] Franklin Squires MD Refill Request (Donepezil) 07/02/2024 1:30 PM CDT Office Visit [address] [place] [address] Franklin Squires MD Medication Management 07/02/2024 Travel 07/01/2024 Anticoagulation (warfarin) [address] [place] [address] 1, [facility] Anticoagulation (Acelis) from Last 3 Months Immunizations Name Administration Dates Next Due COVID-19 vaccine (Party Over Here NTech 30mcg/0.3mL) 12YO+ BIVALENT PF, MDV 10/22/2022 COVID-19 vaccine (NGI 30mcg/0.3mL) PF, MDV 01/25/2021,01/02/2021 Influenza A (H1N1), [...] 72 09/10/2024 1:26 PM CDT Temperature 36.3 C (97.4 F) 07/23/2024 11:00 AM CDT Respiratory Rate 16 09/10/2024 1:26 PM CDT Oxygen Saturation 99% 07/23/2024 11:00 AM CDT Inhaled Oxygen Concentration - - Weight 95.7 kg (211 lb) 04/24/2024 1:48 PM CDT Height 175.3 cm (5' 9) 04/24/2024 1:48 PM CDT Body Mass Index 31.16 04/24/2024 1:48 PM CDT Plan of Treatment Upcoming Encounters Date Type Department Care Team (Late st Contact Info) Description 10/01/2024 1:50 PM AUTOMATIC HEMMER Office Visit [address] [phone] Franklin Squires MD [address] [place] [phone] 10/01/2024 2:30 PM AUTOMATIC HEMMER Nurse/Clinic Staff Only [address] [phone] Health Maintenance Due Date Last Done Comments Hepatitis C screening for ag e 18-79 1963 Zoster (shingles) series for age 50+ (2 of 3) 01/11/2016 11/16/2015, 03/23/2013 Medicare Wellness for age 65+ 02/07/2018 02/06/2017, 10/19/2015 RSV vaccine for adults or (1 - 1-dose 75+ series) 2021 COVID-19 vaccine series ( - season) 2024 10/22/2022, 08/06/2021, 01/25/2021, Additional history exists Influenza for age 65+ 07/12/2024 10/22/2022 , 10/11/2022, 09/03/2021, Additional history exists Depression screening for age 12+ 12/19/2024 12/19/2023, 12/19/2023, 06/29/2022, Additional history exists Tetanus booster 05/28/2032 05/28/2022, 06/28/2011 Tdap Completed 06/28/2011 Pneumococcal series for age 65+ Completed 10/19/2015, 08/13/2011, 10/06/2009, Additional history exists Procedures Procedure Name Priority Date/Time Associated Diagnosis Comments CT PELVIS W Routine 09/25/2024 3:42 PM AUTOMATIC HEMMER 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) HOME MONITOR AC Routine 09/25/2024 12:00 AM AUTOMATIC HEMMER HOME MONITOR AC Routine 09/18/2024 12:00 AM AUTOMATIC HEMMER CBC WITH AUTO DIFFERENTIAL STAT 09/17/2024 11:43 AM AUTOMATIC HEMMER CBC WITH AUTO DIFFERENTIAL STAT 09/17/2024 11:43 AM AUTOMATIC HEMMER SEDIMENTATION RATE STAT 09/17/2024 11:43 AM AUTOMATIC HEMMER C-REACTIVE PROTEIN STAT 09/17/2024 11:43 AM AUTOMATIC HEMMER HOME MONITOR AC Routine 09/11/2024 12:00 AM [...] CDT from Last 3 Months Results * CT PELVIS W (09/25/2024 3:42 PM AUTOMATIC HEMMER) Anatomical Region Laterality Modality Pelvis, Abdomen, PROSTATE, BLADDER Computed Tomography 09/28/2024 5:1 7 AM AUTOMATIC HEMMER Impressions 09/28/2024 5:17 AM AUTOMATIC HEMMER 1. Left decubitus ulcer fairly similar in appearance with soft tissue thickening involving the left buttock extending to the ischial tuberosity. There is sclerosis and erosive changes of the ischial tuberosity most likely reflecting osteomyelitis. Likely decubitus ulcer on the right with skin thickening extending to the ischial tuberosity no osteomyelitis seen. Please note that all CT scans at this facility use dose modulation, iterative reconstruction, and/or weight-based dosing when appropriate to reduce radiation dose to as low as reasonably achievable. Dictated by Brenda Hernandez MD @ 09/28/2024 5:17:14 AM (Electronically Signed) Narrative 09/28/2024 5:17 AM AUTOMATIC HEMMER For Patients: As a result of the Cures Act, medical imaging exams and procedure reports are released immediately into your electronic medical record. You may view this report before your referring provider. If you have questions, please contact your health care provider. INDICATION: Stage IV pressure ulcer of left buttock. Chronic osteomyelitis of pubic symphysis TECHNIQUE: CT pelvis with 100 mL Omnipaque 300 COMPARISON: CT 02/14/2024 FINDINGS: Kidneys: Renal cysts bilaterally kidneys are only partially imaged. GI tract: Left ventral ostomy. GI tract appears unremarkable. Constantino`s pouch Vasculature: Abdominal aorta is normal in caliber. Collateral vessels noted. IVC filter. Lymph nodes: No lymphadenopathy. Peritoneum/Abdominal Wall: Unremarkable. No sign of mass or infiltration. No free air or significant free fluid. Pelvis: Wall thickening urinary bladder which is decompressed with air in the bladder . Pericystic inflammatory stranding of the bladder. Suprapubic catheter Atrophy of the psoas muscle. Small fat containing umbilical hernia Bones: Left-sided decubitus ulcer with soft tissue thickening in ulcer crater involving the left buttock extending to the ischial tuberosity. There is edematous infiltration. There is sclerosis and irregularity/erosive changes of the ischial tuberosity most likely reflecting osteomyelitis the appearance not significantly changed. To lesser degree soft tissue thickening along the right buttock extending towards the ischial tuberosity no definite osteomyelitis. Procedure Note Brenda Hernandez MD - 09/28/2024 For Patients: As a result of the Century Cures Act, medical imagingexams and procedure reports are released immediately into your electronicmedical record. You may view this report before your referring provider.If you have questions, please contact your health care provider. INDICATION: Stage IV pressure ulcer of left buttock. Chronic osteomyelitis of pubicsymphysis TECHNIQUE: CT pelvis with 100 mL Omnipaque 300 COMPARISON: CT 02/14/2024 FINDINGS: Kidneys: Renal cysts bilaterally kidneys are only partially imaged. GI tract: Left ventral ostomy. GI tract appears unremarkable. Constantino`spouch Vasculature: Abdominal aorta is normal in caliber. Collateral vesselsnoted. IVC filter. Lymph nodes: No lymphadenopathy. Peritoneum/Abdominal Wall: Unremarkable. No sign of mass or infiltration.No free air or significant free fluid. Pelvis: Wall thickening urinary bladder which is decompressed with air inthe bladder . Pericystic inflammatory stranding of the bladder. Suprapubic catheter Atrophy of the psoas muscle. Small fat containing umbilical hernia Bones: Left-sided decubitus ulcer with soft tissue thickening in ulcercrater involving the left buttock extending to the ischial tuberosity.There is edematous infiltration. There is sclerosis andirregularity/erosive changes of the ischial tuberosity most likelyreflecting osteomyelitis the appearance not significantly changed. To lesser degree soft tissue thickening along the right buttock extendingtowards the ischial tuberosity no definite osteomyelitis. IMPRESSION: 1. Left decubitus ulcer fairly similar in appearance with soft tissuethickening involving the left buttock extending to the ischial tuberosity.There is sclerosis and erosive changes of the ischial tuberosity mostlikely reflecting osteomyelitis. Likely decubitus ulcer on the right with skin thickening extending to theischial tuberosity no osteomyelitis seen. Please note that all CT scans at this facility use dose modulation,iterative reconstruction, and/or weight-based dosing when appropriate toreduce radiation dose to as low as reasonably achievable. Dictated by Brenda Hernandez MD @ 09/28/2024 5:17:14 AM (Electronically Signed) Nighat Fierro MD CT * HOME MONITOR AC (09/25/2024 12:00 AM AUTOMATIC HEMMER) Only the most recent of12 resultswithin the time period is included. PATIENT REPORTED HOME INR 2.9 2.00 - 3.00 [facility] 09/25/2024 Franklin Squires MD OTHER [facility] [address] [place] [address] * (ABNORMAL) SEDIMENTATION RATE (09/17/2024 11:43 AM AUTOMATIC HEMMER) Only the most recent of2 resultswithin the time period is included. SEDIMENTATION RATE 33(H) <20 mm/hr 2023 11:54 AM [facility] Blood BLOOD SPECIMEN / Unknown Line/Port / Unknown 09/17/2024 11:43 AM AUTOMATIC HEMMER 09/17/2024 11:46 AM AUTOMATIC HEMMER Yudith Mcgraw NP HEMATOLOGY [facility] [address] [place] [address] * (ABNORMAL) CBC WITH AUTO DIFFERENTIAL (09/17/2024 11:43 AM AUTOMATIC HEMMER) Only the most recent of6 resultswithin the time period is included. WHITE BLOOD COUNT 7.2 4.5 - 11.0 thou/cu mm 09/17/2024 11:49 AM [facility] RED BLOOD COUNT 4.13(L) 4.30 - 5.90 mil/cu mm 09/17/2024 11:49 AM [facility] HEMOGLOBIN 12.4(L) 13.5 - 17.5 g/dL 09/17/2024 11:49 AM [facility] HEMATOCRIT 39.4 37.0 - 53.0 % 09/17/2024 11:49 AM [facility] MCV 95 80 - 100 fL 09/17/2024 11:49 AM [facility] MCH 30.0 26.0 - 34.0 pg 09/17/2024 11:49 AM [facility] MCHC 31.5(L) 32.0 - 36.0 g/dL 09/17/2024 11:49 AM [facility] RDW 14.6 11.5 - 15.5 % 09/17/2024 11:49 AM [facility] PLATELET COUNT 155 140 - 440 thou/cu mm 09/17/2024 11:49 AM [facility] MPV 10.6 6.5 - 11.0 fL 09/17/2024 11:49 AM [facility] % NEUT 60.5 % 09/17/2024 11:49 AM [facility] % LYMPH 27.8 % 09/17/2024 11:49 AM [facility] % MONO 9.6 % 09/17/2024 11:49 AM [facility] % EOS 1.8 % 09/17/2024 11:49 AM [facility] % BASO 0.3 % 09/17/2024 11:49 AM [facility] ABSOLUTE NEUTROPHILS 4.4 1.7 - 7.0 thou/cu mm 09/17/2024 11:49 AM [facility] ABSOLUTE LYMPHOCYTES 2.0 0.9 - 2.9 thou/cu mm 09/17/2024 11:49 AM [facility] ABSOLUTE MONOCYTES 0.7 <0.9 thou/cu mm 09/17/2024 11:49 AM [facility] ABSOLUTE EOSINOPHILS 0.1 <0.5 thou/cu mm 09/17/2024 11:49 AM [facility] ABSOLUTE BASOPHILS 0.0 <0.3 thou/cu mm 09/17/2024 11:49 AM [facility] Blood BLOOD SPECIMEN / Unknown Line/Port / Unknown 09/17/2024 11:43 AM AUTOMATIC HEMMER 09/17/2024 11:46 AM [facility] - 09/17/2024 11:49 AM [facility] Picc line Picc line Yudith Mcgraw NP HEMATOLOGY Performing Organization Address [facility]/ZIP Co de Phone Number [facility] [address] [place] [address] * (ABNORMAL) C-REACTIVE PROTEIN (09/17/2024 11:43 AM AUTOMATIC HEMMER) Only the most recent of2 resultswithin the time period is included. C-REACTIVE PROTEIN 1.2(H) <0.5 mg/dL 09/17/2024 12:04 PM AUTOMATIC HEMMER [facility] Blood BLOOD SPECIMEN / Unknown Line/Port / Unknown 09/17/2024 11:43 AM AUTOMATIC HEMMER 09/17/2024 11:46 AM AUTOMATIC HEMMER Yudith Mcgraw NP CHEMISTRY Performing Organization Address [facility] Co de Phone Number [facility] [address] [place] [address] * (ABNORMAL) BASIC METABOLIC PANEL (09/03/2024 2:00 PM CDT) Only the most recent of5 resultswithin the time period is included. SODIUM 136 136 - 145 mmol/L 09/03/2024 2:[address] [facility] POTASSIUM 3.9 3.5 - 5.1 mmol/L 09/03/2024 2:[address] [facility] CHLORIDE 97(L) 98 - 107 mmol/L 09/03/2024 2:[address] [facility] CO2,TOTAL 28 22 - 29 mmol/L 09/03/2024 2:[address] [facility] ANION GAP 11 5 - 18 09/03/2024 2:[address] [facility] GLUCOSE 126(H) 70 - 99 mg/dL 09/03/2024 2:[address] [facility] CALCIUM 9.6 8.8 - 10.2 mg/dL 09/03/2024 2:[address] [facility] BUN 21 8 - 23 mg/dL 09/03/2024 2:[address] [facility] CREATININE 0.69(L) 0.70 - 1.20 mg/dL 09/03/2024 2:50 PM CDT [facility] BUN/CREAT RATIO 30(H) 10 - 20 2:50 PM CDT [facility] eGFR >90 >90 mL/min/1.7 3m2 09/03/2024 2:50 PM CDT [facility] Comment:As of 2022, eG FR is calculated by the CKD-EPI creatinine equation without race adjustment. eGFR can be influenced by muscle mass, exercise, and diet. The reported eGFR is an estimation only and is only applicable if the renal function is stable. Blood BLOOD SPECIMEN / Unknown Line/Port / Unknown 09/03/2024 2:00 PM CDT 09/03/2024 2:37 PM CDT Yudith Mcgraw PAYROLL BENEFITS CLERK CHEMISTRY Performing Organization Address [facility] Healthcare/ZIP Co de Phone Number [facility] [address] [place] [address] * EXTRA TUBE LAVENDER (07/23/2024 10:59 AM CDT) Blood BLOOD SPECIMEN / Unknown Extra Tube / Unknown 07/23/2024 10:59 AM CDT 07/23/2024 11:06 AM CDT Doctor Unknown LABORATORY Performing Organization Address City/[facility]/ZIP Co de Phone Number [facility] [address] [place] [address] * EXTRA TUBE BLUE (07/23/2024 10:59 AM CDT) Blood BLOOD SPECIMEN / Unknown Extra Tube / Unknown 07/23/2024 10:59 AM CDT 07/23/2024 11:06 AM CDT Doctor Unknown LABORATORY Performing Organization Address City/[facility]/ZIP Co de Phone Number [facility] [address] [place] [address] * XR CHEST 1 VIEW PORTABLE (07/23/2024 10:04 AM CDT) Anatomical Region Laterality Modality HEART, THORAX, CHEST Digital Rad iography 07/23/2024 10:1 8 AM CDT Impressions 07/23/2024 10:18 AM CDT Right-sided PICC line in good position. No complication of line placement. Dictated by Ruben Abbott MD @ 07/23/2024 10:18:57 AM (Electronically Signed) Narrative 07/23/2024 10:18 AM CDT For Patients: As a result of the Cures Act, medical imaging exams and procedure reports are released immediately into your electronic medical record. You may view this report before your referring provider. If you have questions, please contact your health [...] - 199 mg/dL 07/02/2024 3:04 PM T [facility] Comment: Cholesterol, Total Reference Ranges Desirable <200 mg/dL Borderline 200-239 mg/dL High >=240 mg/dL TRIGLYCERIDES 58 <150 mg/dL 07/02/2024 3:04 PM CDT [facility] HDL CHOLESTEROL 56 >40 mg/dL 3:04 PM T [facility] NON-HDL CHOLESTEROL 66 <145 mg/dl 07/02/2024 3:[address] [facility] CHOL/HDL RATIO 2.18 <4.50 07/02/2024 3:04 PM T [facility] LDL CHOLESTEROL 54 <=130 mg/dL 07/02/2024 3:[address] [facility] VLDL CHOLESTEROL 12 <=30 mg/dL 07/02/2024 3:04 PM T [facility] PROVIDER ORDERED STATUS RANDOM 07/02/2024 3:04 PM T [facility] Blood BLOOD SPECIMEN / Unknown Venipuncture / Unknown 07/02/2024 2:14 PM CDT 07/02/2024 2:14 PM CDT Franklin Squires MD CHEMISTRY [facility] [address] [place] [address] * (ABNORMAL) CBC W PLT NO DIFF (07/02/2024 2:14 PM CDT) WHITE BLOOD COUNT 8.5 4.5 - 11.0 thou/cu mm 07/02/2024 2:58 PM CDT [facility] RED BLOOD COUNT 4.75 4.30 - 5.90 mil/cu mm 07/02/2024 2:58 PM CDT [facility] HEMOGLOBIN 14.1 13.5 - 17.5 g/dL 07/02/2024 2:58 PM CDT [facility] HEMATOCRIT 42.2 37.0 - 53.0 % 07/02/2024 2:58 PM CDT [facility] MCV 89 80 - 100 fL 07/02/2024 2:58 PM CDT [facility] MCH 29.7 26.0 - 34.0 pg 07/02/2024 2:58 PM CDT [facility] MCHC 33.4 32.0 - 36.0 g/dL 07/02/2024 2:58 PM T [facility] RDW 18.3(H) 11.5 - 15.5 % 07/02/2024 2:58 PM T [facility] PLATELET COUNT 159 140 - 440 thou/cu mm 07/02/2024 2:58 PM CDT [facility] MPV 10.7 6.5 - 11.0 fL 07/02/2024 2:58 PM T [facility] Blood BLOOD SPECIMEN / Unknown Venipuncture / Unknown 07/02/2024 2:14 PM CDT 07/02/2024 2:14 PM CDT Franklin Squires MD HEMATOLOGY [facility] [address] [place] [address] * HEMOGLOBIN A1C MONITORING (POCT) (07/02/2024 2:14 PM CDT) Pathologist [facility] HEMOGLOBIN A1C MONITORING (POCT) 5.9 <=6.4 % 07/02/2024 2:49 PM CDT [facility] Blood BLOOD SPECIMEN / Unknown Venipuncture / Unknown 07/02/2024 2:14 PM CDT 07/02/2024 2:14 PM CDT [facility] - 07/02/2024 2:49 PM CDT (<=6.9%) Indicates good control (7.0% to 7.9%) Indicates fair control (>=8.0%) Indicates poor control NOTE: These thresholds are guidelines and individual targets may vary. Falsely low levels may be seen with: Recent Transfusion, Recent Significant Blood Loss, Hemolytic Diseases, or Falsely elevated levels may be seen with: Untreated Anemias, Splenectomy Franklin Squires MD CHEMISTRY [facility] [address] [place] [address] from Last 3 Months Additional [...] 12 months since positive culture): resides in acute/shelter care, receiving hemodialysis, has chronic open wounds/skin damage, has long-term percutaneous indwelling medical devices Exclusions for nares collection (if <12 months since positive culture) include all of the previous exclusions plus patients on antibiotics 7 days prior to collection 03/13/2018 03/20/2024 Advance Directives Documents on File Type Date Recorded Patient Bag Grader Expl anation Treatment Guidelines 08/04/2024 Healthcare Directive [...] Code Status Discussion: Reviewed Preferences Care Teams Improvement Advisor Relationship Specialty Start Date End Date Franklin Squires MD [address] [place] [address] PCP - General Family Practice 10/18/15 Zelalem Cohen MD Physical Therapist 03/13/12 May Randle Md, MD Physical Medicine and Rehabilitation 03/13/12 Fred Craft LSW [address] [place] [address] Freight Air Brake Fitter 05/03/17 Diane Charles MD [address] [place] [address] Surgery - Urology 01/17/23 Julia Ware, RN [address] [place] [address] Registered Nurse 07/17/23
--- OUTSIDE RECORDS SUMMARY | 2024-09-28 12:46 | XMS_ITS | Encounter Summary ---
Author Name [facility] Organization [facility] Address [address] [place] [address] Care Team Providers Care Information Systems Planner Name Role Phone SHANTAL HANSON Primary Care [...] PART B Jul 12, 2004 PART B [id number] [phone] MIKAYLAF RED PATIENT MEDICARE (WNR) MEDICARE (M) PART A Oct 11, 2002 PART A [id number] [id number] [phone] Kasie DEGROOT RED PATIENT Selected Encounter This section includes the information on record at [place] for the Encounter. Date/Time Encounter Type Encounter Description Reason Pro vider Source Sep 23, 2024 09:02 AM Outpatient Encounter [facility] I[facility] Encounter Template Text not used by [place] Plan of Treatment: Future Appointments (+ 6 months) and Future Tests (+/- 45 days) The Plan of Treatment section includes future care activities for the patient from all [place] treatmentfacilities. This section includes future appointments and future orders which are active, pending or scheduled. Active, Pending, and Scheduled Orders This section includes a listing of several types of active, pending, and scheduled orders, including clinic medications orders, diagnostic test orders, procedure orders and consult orders; where the start date of the order is 45 days before the date of the Encounter or 45 days after the date of theEncounter. The data comes from all [place] treatment facilities. Test Date/Time Test Type Test Details Facility Name Sep 24, 2024 08:10 AM Consult Order PROSTHETIC S REQUEST Cons Motor And Controls Tester's Choice [facility] Advance Directives: All historical [...] 2023 ADVANCE DIRECTIVE DISCUSSION [facility]USTAVO [facility]AD [facility] Encounter Notes: All associated encounter notes This section contains the clinical notes associated to the Encounter. Date/Time Encounter Note(s) Provider Source Sep 23, 2024 09:02 AM REPORT OF CONTACT: LOCAL TITLE: PATIENT CONTACT NOTE STANDARD TITLE: REPORT OF CONTACT DATE OF NOTE: SEP 23, 2024@09:02 ENTRY DATE: SEP 23, 2024@09:02:19 AUTHOR: EUSEBIO WHITLOCK EXP COSIGNER: URGENCY: STATUS: COMPLETED Patient contact Name of : JIE DEGROOT Jagdish Name/Relationship of Contact if other than Sherrill: - Sheron Date & Time of Contact: Sep@09:02 Type of Contact: Other Voicemail Reason for Contact: The 's called into the [facility] mobility seating [facility] positioning wheelchair clinic's voicemail looking for as point of contact to have some maintenance checks completed on the [place] installed ceiling lift. The 's is looking for a return call. /el/ EUSEBIO WHITLOCK OTR/L Signed: 09/23/2024 09:04 Receipt Acknowledged By: 09/24/2024 08:12 /el/ SUSANA HALEY OCCUPATIONAL THERAPIST EUSEBIO WHITLOCK [facility]
--- OUTSIDE RECORDS SUMMARY | 2024-09-28 12:46 | XMS_ITS | Encounter Summary ---
Author Name [facility] Organization [facility] [place] Address [address] [place] [address] Care Team Providers Care Sequins Spooler Name Role Phone SHANTAL HANSON Primary Care [...] PART B Jul 12, 2004 PART B [id number] [phone] MIKAYLA,F RED PATIENT MEDICARE (WNR) MEDICARE (M) PART A Oct 11, 2002 PART A [id number] [id number] [phone] Kasie DEGROOT RED PATIENT Selected Encounter This section includes the information on record at [place] for the Encounter. Date/Time Encounter Type Encounter Description Reason Pro vider Source Jul 23, 2024 08:49 AM Outpatient Encounter COMMUNITY CARE CONSULT I[facility] Encounter Template Text not used by [facility] Advance Directives: All historical and current Section Date Range: From patient's date of to the date document was created. This section includes ALL of a patient's completed or amended [place] Advance and Rescinded Directives. The entries below indicate that a directive exists for the patient, but an actual copy is not included with this document. The data comes from all [place] facilities. Date Advance Directives Provider Source Feb [...] ]. Left message requesting a call back. Cloth Seconds Sorter will attempt to call again. /el/ Jose Anders RN Community Vp Of Customer Experience Strategy Signed: 07/23/2024 08:50 JOSE ANDERS [facility]
--- OUTSIDE RECORDS SUMMARY | 2024-09-28 12:46 | XMS_ITS | Continuity of Care Document ---
Author Name [facility] Organization [facility] Care Team Providers Care [employer] Operators Supervisor Name Role Phone [facility] Unavailable Unavailable Problems Combined list of problems from 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 It does not include entries that were removed or entered in error. Problem Status Onset Date Problem Type Date of Resolution Comments Source Abnormal liver function Active Condition [facility] Anemia ([facility]CT 975155967) Active Condition [facility] Anxiety ([facility] 27132212) Active Condition [facility] Autonomic dysreflexia Active Condition [facility] Chronic Pain Syndrome ([facility]CT 575993749) Active Condition [facility] Colostomy present Active Condition [facility] Constipation ([facility] 74119213) Active Condition [facility] Continuous opioid dependence Active Condition [facility] COPD - Chronic Obstructive Pulmonary Disease ([facility]CT 17481953) Active Condition [facility] Dementia Active Condition [facility] Depression ([facility] 96992742) Active Condition [facility] Diabetes Mellitus Type 2 (SCT 31297443) Active Condition [facility] Ependymoma of spinal cord Active Condition [facility] Hearing Loss ([facility] 16804367) Active Condition [facility] History of Deep Vein Thrombosis (SCT 305105088) Active Condition [facility] History of pressure injury Active Condition [facility] HTN - Hypertension (SCT 19954808) Active Condition [facility] Hyperlipidemia ([facility] 82572321) Active Condition [facility] Hyponatremia Active Condition [facility] Long-term current use of anticoagulant Active Condition [facility] Neurogenic Bladder ([facility] 958962296) Active Condition [facility] Neurogenic bowel Active Condition [facility] Osteoporosis ([facility] 84156432) Active Condition [facility] Paraplegia Active Condition [facility] Spasticity Active Condition [facility] Suprapubic urinary catheter in situ Active Condition [facility] Supraventricular tachycardia Active Condition [facility] Tinnitus ([facility] 15551808) Active Condition [facility] Vitamin D Deficiency ([facility] 5055360) Active Condition [facility] Diagnosis: ICD-10-CM Z73.6 Limitation of activities due to disability Active Diagnosis [facility] Diagnosis: ICD-10-CM G82.20 Paraplegia, unspecified Active Diagnosis [facility] Medications Combined list of outpatient [...] NEEDED ORAL ACTIVE Jagdish BARRETT N 2022 [facility] AMLODIPINE BESYLATE (AMLODIPINE BESYLATE), 5 MG, TABLET, ORAL, [employer] 1000 ea. BOTTLE Active [id number] 4 2023 90 Pharmac y Data Transac tion Service Facilit y AMLODIPINE BESYLATE (amlodipine besylate), 5 MG, TABLET, ORAL, [employer], 1000 ea. BOTTLE Active [id number] 2023 90 Pharmac y Data Transac tion Service Facilit y AMLODIPINE BESYLATE 2.5MG TAB TAKE TWO TABLETS BY MOUTH EVERY MORNING ORAL ACTIVE Jagdish BARRETT 2022 [facility] AMOX TR-POTASSIU M CLAVULANATE (AMOXICILLI N/POTASSIUM CLAV), 875-125 MG, TABLET, ORAL, [employer], 20 ea. BOTTLE Active [id number] 2022 14 Pharmac y Data Transac tion Service Facilit y AMOXICILLIN -CLAVULANAT E POTASS (amoxicilli n/potassium clavulanate ), 875-125 MG, TABLET, ORAL, [employer],, 20 ea. BOTTLE Active [id number] 2023 20 Pharmac y Data Transac tion Service Facilit y AMOXICILLIN -CLAVULANAT E POTASS (amoxicilli n/potassium clavulanate ), 875-125 MG, TABLET, ORAL, Mamaya [facility],, 20 ea. BOTTLE Active [id number] 2023 56 Pharmac y Data Transac tion Service Facilit y ARIPIPRAZOL E (aripiprazo le), 2 MG, TABLET, ORAL, [employer], 500 ea. BOTTLE Active [id number] 2023 180 Pharmac y Data Transac tion Service Facilit y ARIPIPRAZOL E (aripiprazo le), 2 MG, TABLET, ORAL, [employer], 500 ea. BOTTLE Active [id number] 2023 180 Pharmac y Data Transac tion Service Facilit y ARIPIPRAZOL E TAB TAKE 2MG BY MOUTH TWICE A DAY ORAL ACTIVE Jey HANSON TAZEvelyn Clemente 2021 [facility] ATIVAN (LORAZEPAM) , 0.5 MG, TABLET, ORAL, [employer], 100 ea. BOTTLE Active [id number] 2023 120 Pharmac y Data Transac tion Service Facilit y ATORVASTATI N CA 80MG TAB TAKE ONE-HALF TABLET BY MOUTH EVERY DAY ORAL ACTIVE Jey HANSON Bryn 2021 [facility] ATORVASTATI N CALCIUM (atorvastat in calcium), 40 MG, TABLET, ORAL, [employer] PHARMA I, 1000 ea. BOTTLE Active [id number] 2023 90 Pharmac y Data Transac tion Service Facilit y ATORVASTATI N CALCIUM (atorvastat in calcium), 40 MG, TABLET, ORAL, [employer]ARMA I, 1000 ea. BOTTLE Active [id number] 2023 90 Pharmac y Data Transac [...] ORAL, PAVEL [employer]ARMACEU, 60 ea. BOTTLE Active [id number] 2023 180 Pharmac y Data Transac tion Service Facilit y BUPROPION HCL SR (bupropion HCl), 150 MG, TAB SR 12H, ORAL, [employer], 60 ea. BOTTLE Active [id number] 2023 180 Pharmac y Data Transac [...] ORAL, AUROB[employer]O [employer]ARM, 50 ea. BOTTLE Active [id number] 2023 70 Pharmac y Data Transac tion Service Facilit y DONEPEZIL HCL (DONEPEZIL HCL), 5 MG, TABLET, ORAL, [employer] 1000 ea. BOTTLE Active [id number] 2023 90 Pharmac y Data Transac tion Service Facilit y DONEPEZIL HCL (DONEPEZIL HCL), 5 MG, TABLET, ORAL, [employer] 1000 ea. BOTTLE Cancele d [id number] : 2023 0 Pharmac y Data Transac tion Service Facilit y DONEPEZIL HCL (DONEPEZIL HCL), 5 MG, TABLET, ORAL, [employer] 1000 ea. BOTTLE Active [id number] 2023 90 Pharmac y Data Transac tion Service Facilit y DONEPEZIL HCL 10MG TAB TAKE ONE-HALF TABLET BY MOUTH EVERY DAY ORAL ACTIVE Jey HANSON Bryn 2021 [facility] DULOXETINE HCL (duloxetine HCl), 60 MG, CAPSULE DR, ORAL, [employer] 1000 ea. BOTTLE Active [id number] 2023 180 Pharmac y Data Transac tion Service Facilit y DULOXETINE HCL (duloxetine HCl), 60 MG, CAPSULE DR, ORAL, [employer] 1000 ea. BOTTLE Active [id number] 2023 180 Pharmac y Data Transac tion Service Facilit y DULOXETINE HCL 30MG CAP,EC TAKE 2 CAPSULES BY MOUTH TWICE A DAY ORAL ACTIVE GRANDJey PRADHAN M 2021 [facility] FAMOTIDINE (famotidine ), 20 MG, TABLET, ORAL, [employer] 1000 ea. BOTTLE Active [id number] 2023 180 Pharmac y Data Transac tion Service Facilit y FAMOTIDINE 20MG TAB TAKE ONE TABLET BY MOUTH TWICE A DAY ORAL ACTIVE GRANDIA,C ONALAINAE M 2021 [facility] FUROSEMIDE (furosemide ), 40 MG, TABLET, ORAL, [employer], 1000 ea. BOTTLE Active [id number] 2023 180 Pharmac y Data Transac tion Service Facilit y FUROSEMIDE 40MG TAB TAKE ONE TABLET BY MOUTH TWICE A DAY ORAL ACTIVE MARGIE,C SB M 2021 [facility] GABAPENTIN (gabapentin ), 400 MG, CAPSULE, ORAL, [employer] 500 ea. BOTTLE Active [id number] 2023 270 Pharmac y Data Transac tion Service Facilit y GABAPENTIN (gabapentin ), 400 MG, CAPSULE, ORAL, [employer], 500 ea. BOTTLE Active [id number] 2023 270 Pharmac y Data Transac tion Service Facilit y GABAPENTIN (gabapentin ), 400 MG, CAPSULE, ORAL, [employer], 500 ea. BOTTLE Cancele d [id number] : 2023 0 Pharmac y Data Transac tion Service Facilit y GABAPENTIN 400MG CAP TAKE 1 CAPSULE BY MOUTH THREE TIMES A DAY ORAL ACTIVE GRANDIAJeyE M 2021 [facility] LORAZEPAM (lorazepam) , 0.5 MG, TABLET, ORAL, [employer], 500 ea. BOTTLE Active [id number] 2023 120 Pharmac y Data Transac tion Service Facilit y LORAZEPAM (lorazepam) , 0.5 MG, TABLET, ORAL, [employer], 1000 ea. BOTTLE Active [id number] 2023 120 Pharmac y Data Transac tion Service Facilit y LORAZEPAM (lorazepam) , 0.5 MG, TABLET, ORAL, [employer], 1000 ea. BOTTLE Active [id number] 2023 120 Pharmac y Data Transac tion Service Facilit y LORAZEPAM (lorazepam) , 0.5 MG, TABLET, ORAL, [employer], 1000 ea. BOTTLE Active [id number] 2023 120 Pharmac y Data Transac tion Service Facilit y LORAZEPAM (lorazepam) , 0.5 MG, TABLET, ORAL, [employer], 500 ea. BOTTLE Active [id number] 2023 120 Pharmac y Data Transac tion Service Facilit y LORAZEPAM 0.5MG TAB TAKE ONE TABLET BY MOUTH THREE TIMES A DAY AND TAKE TWO TABLETS BY MOUTH AT BEDTIME ORAL ACTIVE Jagdish BARRETT 2022 [facility] MILK OF MAGNESIA TAKE 30ML BY MOUTH EVERY DAY NEEDED ORAL ACTIVE GRANDIA,C TAZE M 2021 [facility] MULTIVITAMI NS CAP/TAB TAKE ONE TABLET BY MOUTH EVERY DAY ORAL ACTIVE GRANDIA,C SB M 2021 [facility] NALOXONE HCL 4MG/SPRAY SOLN,SPRAY, NASAL SPRAY 1 DOSE IN ONE NOSTRIL DIRECTED PRN NASAL ACTIVE Jagdish BARRETT N 2022 [facility] OXYCODONE HCL (OXYCODONE HCL), 10 MG, TABLET, ORAL, [employer] 100 ea. BOTTLE Active [id number] 2023 120 Pharmac y Data Transac tion Service Facilit y OXYCODONE HCL (OXYCODONE HCL), 10 MG, TABLET, ORAL, [employer] 100 ea. BOTTLE Active [id number] 2023 120 Pharmac y Data Transac tion Service Facilit y OXYCODONE HCL (OXYCODONE HCL), 10 MG, TABLET, ORAL, [employer] 100 ea. BOTTLE Active [id number] 2023 120 Pharmac y Data Transac tion Service Facilit y OXYCODONE HCL (OXYCODONE HCL), 10 MG, TABLET, ORAL, [employer] 100 ea. BOTTLE Active [id number] 2023 120 Pharmac y Data Transac tion Service Facilit y OXYCODONE HCL (OXYCODONE HCL), 10 MG, TABLET, ORAL, [employer] 100 ea. BOTTLE Active [id number] 2023 120 Pharmac y Data Transac tion Service Facilit y OXYCODONE HCL (OXYCODONE HCL), 10 MG, TABLET, ORAL, [employer] 100 ea. BOTTLE Active [id number] 2023 120 Pharmac y Data Transac tion Service Facilit y OXYCODONE HCL (OXYCODONE HCL), 10 MG, TABLET, ORAL, [employer] 100 ea. BOTTLE Active [id number] 2022 120 Pharmac y Data Transac tion Service Facilit y OXYCODONE HCL 5MG TAB TAKE TWO TABLETS BY MOUTH FOUR TIMES A DAY ORAL ACTIVE Jagdish BARRETT 2022 [facility] POTASSIUM CHLORIDE (potassium chloride), 10 MEQ, TAB ER PRT, ORAL, [employer], 100 ea. BOTTLE Active [id number] 2023 180 Pharmac y Data Transac tion Service Facilit y POTASSIUM CHLORIDE (potassium chloride), 10 MEQ, TAB ER PRT, ORAL, [employer], 100 ea. BOTTLE Active [id number] 2023 180 Pharmac y Data Transac tion Service Facilit y POTASSIUM CHLORIDE (potassium chloride), 20 MEQ, TAB ER PRT, ORAL, [employer], 100 ea. BOTTLE Active [id number] 2023 90 Pharmac y Data Transac tion Service Facilit y POTASSIUM CHLORIDE 20MEQ TAB,SA (DISPERSIBL E) TAKE ONE TABLET BY MOUTH TWICE A DAY ORAL ACTIVE Jey HANSON 2021 [facility] SANTYL (collagenas e Clostridium histolyticu m), 250 UNIT/G, OINT. (G), TOPICAL, WHITLOCK&N/UNI LUIS, 30 g TUBE Cancele d [id number] : 2023 0 Pharmac y Data Transac tion Service Facilit y WARFARIN SODIUM (warfarin sodium), 5 MG, TABLET, ORAL, [employer] 1000 ea. BOTTLE Cancele d [id number] : 2022 0 Pharmac y Data Transac tion Service Facilit y WARFARIN SODIUM (WARFARIN SODIUM), 5 MG, TABLET, ORAL, [employer], 1000 ea. BOTTLE Active [id number] 2023 25 Pharmac y Data Transac tion Service Facilit y WARFARIN SODIUM (WARFARIN SODIUM), 5 MG, TABLET, ORAL, [employer], 1000 ea. BOTTLE Active [id number] 2023 12 Pharmac y Data Transac tion Service Facilit y WARFARIN SODIUM (WARFARIN SODIUM), 5 MG, TABLET, ORAL, [employer], 1000 ea. BOTTLE Active [id number] 2023 40 Pharmac y Data Transac tion Service Facilit y WARFARIN SODIUM (WARFARIN SODIUM), 5 MG, TABLET, ORAL, [employer], 1000 ea. BOTTLE Cancele d [id number] : 2022 0 Pharmac y Data Transac tion Service Facilit y WARFARIN SODIUM (warfarin sodium), 7.5 MG, TABLET, ORAL, [employer], 100 ea. BOTTLE Active [id number] 2023 51 Pharmac y Data Transac tion Service Facilit y WARFARIN SODIUM (warfarin sodium), 7.5 MG, TABLET, ORAL, [employer], 100 ea. BOTTLE Active [id number] 2023 78 Pharmac y Data Transac tion Service Facilit y WARFARIN TAB TAKE 5MG BY MOUTH SUN/THUR S AND TAKE 7.5MG BY MOUTH ALL OTHER DAYS ORAL ACTIVE Jagdish BARRETT 2022 [facility] Allergies, Adverse Reactions, Alerts Combined list of allergies from Department [facility] and [facility] facilities. It does not include entries that were removed or entered in error. Substance Category Reaction Severity Reaction type Status Date Reported Comments Source AMOXICILLIN Propensity to adverse reactions to drug (finding) [facility]ruption [facility] METOLAZONE Propensity to adverse reactions to drug (finding) Itching active 2 [facility] MORPHINE Propensity to adverse reactions to drug (finding) Delirium active 2 [facility] PIPERACILLIN Propensity to adverse reactions to drug (finding) Eruption active 2 [facility] SULFA DRUGS Propensity to adverse reactions to drug (finding) Eruption active 2 [facility] TAZOBACTAM SODIUM Propensity to adverse reactions to drug (finding) Eruption active 2 [facility] Immunizations Combined list of available immunizations from the Department of [facility] and [facility] facilities. Immunization Series Date Given Administered By Site Reaction Lot Number CVX Code Drug Blower Insulator Status Comments Source COVID-19 ([employer]), MRNA, LNP-S, BIVALENT, PF, 30 MCG/0.3 ML DOSE 2021 300 complet ed [facility] INFLUENZA, ADJUVANTED, QUADRIVALENT, PF 2021 205 complet ed [facility] INFLUENZA, UNSPECIFIED FORMULATION 2021 88 complet ed [employer] [facility] TD (ADULT), 5 LF TETANUS TOXOID, PRESERVATIVE FREE, ADSORBED 2021 113 complet ed [facility] INFLUENZA, ADJUVANTED, QUADRIVALENT, PF 2020 205 complet ed [facility] INFLUENZA, UNSPECIFIED FORMULATION 2020 88 complet ed [facility] COVID-19 ([employer]), MRNA, LNP-S, PF, 30 MCG/0.3 ML DOSE 3 2020 208 complet ed [facility] COVID-19 ([employer]), MRNA, LNP-S, PF, 30 MCG/0.3 ML DOSE 2 2020 208 complet ed [facility] COVID-19 ([employer]), MRNA, LNP-S, PF, 30 MCG/0.3 ML DOSE 1 2020 208 complet ed [facility] INFLUENZA, ADJUVANTED, QUADRIVALENT, PF 2019 205 complet ed [facility] INFLUENZA, ADJUVANTED, TRIVALENT, PF 2018 168 complet ed [facility] INFLUENZA, ADJUVANTED, TRIVALENT, PF 2017 168 complet ed [facility] INFLUENZA, HIGH-DOSE, TRIVALENT, PF 2016 135 complet ed [facility] INFLUENZA, ADJUVANTED, TRIVALENT, PF 2016 168 complet ed [facility] INFLUENZA, HIGH-DOSE, TRIVALENT, PF 2015 135 complet ed [facility] ZOSTER LIVE 2015 121 complet ed [facility] PNEUMOCOCCAL CONJUGATE PCV 13 2014 133 complet ed [facility] INFLUENZA, HIGH-DOSE, TRIVALENT, PF 2014 135 complet ed [facility] INFLUENZA, HIGH-DOSE, TRIVALENT, PF 2013 135 complet ed [facility] INFLUENZA, UNSPECIFIED FORMULATION 2013 88 complet ed [facility] INFLUENZA, SPLIT VIRUS, TRIVALENT, PRESERVATIVE 2012 141 complet ed [facility] ZOSTER LIVE 2012 121 complet ed [facility] INFLUENZA, SPLIT VIRUS, TRIVALENT, PRESERVATIVE 2011 141 complet ed [facility] INFLUENZA, SPLIT VIRUS, TRIVALENT, PF 2010 140 complet ed [facility] PNEUMOCOCCAL POLYSACCHARID E PPV23 2010 33 complet ed [facility] TDAP 2010 115 complet ed [facility] INFLUENZA, SPLIT VIRUS, TRIVALENT, PRESERVATIVE 2009 141 complet ed [facility] NOVEL INFLUENZA-H1N 1-09, ALL FORMULATIONS 2009 128 complet ed [facility] INFLUENZA, SPLIT VIRUS, TRIVALENT, PF 2008 140 complet ed [facility] PNEUMOCOCCAL POLYSACCHARID E PPV23 2008 33 complet ed [facility] INFLUENZA, SPLIT VIRUS, TRIVALENT, PRESERVATIVE 2008 141 complet ed [facility] INFLUENZA, SPLIT VIRUS, TRIVALENT, PRESERVATIVE 2007 141 complet ed [facility] INFLUENZA, SPLIT VIRUS, TRIVALENT, PRESERVATIVE 2005 141 complet ed [facility] INFLUENZA, SPLIT VIRUS, TRIVALENT, PRESERVATIVE 2004 141 complet ed [facility] PNEUMOCOCCAL POLYSACCHARID E PPV23 2004 33 complet ed [facility] INFLUENZA, SPLIT VIRUS, TRIVALENT, PRESERVATIVE 2003 141 complet ed [facility] Results Combined list of recent [...] PM Reporting Lab: [facility] [address] Performing Lab: [facility] [address] [facility] CYSTATIN C WITH EGFR CYSTATIN C AND GLOMERULAR FILTRATION RATE BY CYSTATIN C-BASED FORMULA PANEL - SERUM OR PLASMA 53 60 02/13 L Specimen Type: PLASMA No comment entered. Ordering Provider: ANKUSH BOWMAN Report Released Date/Time: Feb 05, 2023 03:10 PM Reporting Lab: [facility] [address] Performing Lab: [facility] [address] [facility] BASIC METABOLI C PANEL+MG CREATININE [MASS/VOLU ME] IN SERUM OR PLASMA 0.7 mg/dL 0.7 - 1.2 02/13 Specimen Type: PLASMA No comment entered. Ordering Provider: ANKUSH BOWMAN Report Released Date/Time: Feb 05, 2023 03:10 PM Reporting Lab: [facility] [address] Performing Lab: [facility] [address] [place] [facility] BASIC METABOLI C PANEL+MG UREA NITROGEN [MASS/VOLU ME] IN SERUM OR PLASMA 15 mg/dL 8 - 26 02/13 Specimen Type: PLASMA No comment entered. Ordering Provider: ANKUSH BOWMAN Report Released Date/Time: Feb 05, 2023 03:10 PM Reporting Lab: [facility] [address] Performing Lab: [facility] [address] [place] [facility] BASIC METABOLI C PANEL+MG GLUCOSE [MASS/VOLU ME] IN SERUM OR PLASMA 140 mg/dL 70 - 100 02/13 H Specimen Type: PLASMA No comment entered. Ordering Provider: ANKUSH BOWMAN Report Released Date/Time: Feb 05, 2023 03:10 PM Reporting Lab: [facility] [address] Performing Lab: [facility] [address] [place] [facility] BASIC METABOLI C PANEL+MG SODIUM [MOLES/VOL UME] IN SERUM OR PLASMA 135 mmol/L 136 - 145 02/13 L Specimen Type: PLASMA No comment entered. Ordering Provider: ANKUSH BOWMAN Report Released Date/Time: Feb 05, 2023 03:10 PM Reporting Lab: [facility] [address] Performing Lab: [facility] [address] [place] [facility] BASIC METABOLI C PANEL+MG POTASSIUM [MOLES/VOL UME] IN SERUM OR PLASMA 4.0 mmol/L 3.5 - 5.1 02/13 Specimen Type: PLASMA No comment entered. Ordering Provider: ANKUSH BOWMAN Report Released Date/Time: Feb 05, 2023 03:10 PM Reporting Lab: [facility] [address] Performing Lab: [facility] [address] [place] [facility] BASIC METABOLI C PANEL+MG CHLORIDE [MOLES/VOL UME] IN SERUM OR PLASMA 99 mmol/L 98 - 107 02/13 Specimen Type: PLASMA No comment entered. Ordering Provider: ANKUSH BOWMAN Report Released Date/Time: Feb 05, 2023 03:10 PM Reporting Lab: [facility] [address] Performing Lab: [facility] [address] [place] [facility] BASIC METABOLI C PANEL+MG CARBON DIOXIDE, TOTAL [MOLES/VOL UME] IN SERUM OR PLASMA 29 mmol/L 22 - 29 02/13 Specimen Type: PLASMA No comment entered. Ordering Provider: ANKUSH BOWMAN Report Released Date/Time: Feb 05, 2023 03:10 PM Reporting Lab: [facility] [address] Performing Lab: [facility] [address] [place] [facility] BASIC METABOLI C PANEL+MG CALCIUM [MASS/VOLU ME] IN SERUM OR PLASMA 9.2 mg/dL 8.4 - 10.2 02/13 Specimen Type: PLASMA No comment entered. Ordering Provider: ANKUSH BOWMAN Report Released Date/Time: Feb 05, 2023 03:10 PM Reporting Lab: [facility] [address] Performing Lab: [facility] [address] [place] [facility] BASIC METABOLI C PANEL+MG MAGNESIUM [MASS/VOLU ME] IN SERUM OR PLASMA 2.0 mg/dL 1.6 - 2.6 02/13 Specimen Type: PLASMA No comment entered. Ordering Provider: ANKUSH BOWMAN Report Released Date/Time: Feb 05, 2023 03:10 PM Reporting Lab: [facility] [address] Performing Lab: [facility] [address] [place] [facility] BASIC METABOLI C PANEL+MG ANION GAP IN SERUM OR PLASMA 7 mmol/L 5 - 15 02/13 Specimen Type: PLASMA No comment entered. Ordering Provider: ANKUSH BOWMAN Report Released Date/Time: Feb 05, 2023 03:10 PM Reporting Lab: [facility] [address] Performing Lab: [facility] [address] [place] [facility] BASIC METABOLI C PANEL+MG GLOMERULAR FILTRATION RATE/1.73 SQ M.PREDICTE D [VOLUME RATE/AREA] IN SERUM, PLASMA OR BLOOD BY CREATININE -BASED FORMULA (CKD-EPI) >90 60 02/13 Specimen Type: PLASMA No comment entered. Ordering Provider: ANKUSH BOWMAN Report Released Date/Time: Feb 05, 2023 03:10 PM Reporting Lab: [facility] [address] Performing Lab: [facility] [address] [place] [facility] URINALYS IS COLOR OF URINE YELLOW 10/08 Specimen Type: URINE No comment entered. Ordering Provider: ANKUSH BOWMAN Report Released Date/Time: Sep 24, 2022 01:55 PM Reporting Lab: [facility] [address] Performing Lab: [facility] [address] [place] [facility] URINALYS IS SPECIFIC GRAVITY OF URINE 1.023 1.003 - 1.035 10/08 Specimen Type: URINE No comment entered. Ordering Provider: ANKUSH BOWMAN Report Released Date/Time: Sep 24, 2022 01:55 PM Reporting Lab: [facility] [address] Performing Lab: [facility] [address] [place] [facility] URINALYS IS BILIRUBIN. TOTAL [PRESENCE] IN URINE BY TEST STRIP NEGATIVE 10/08 Specimen Type: URINE No comment entered. Ordering Provider: ANKUSH BOWMAN Report Released Date/Time: Sep 24, 2022 01:55 PM Reporting Lab: [facility] [address] Performing Lab: [facility] [address] [place] [facility] URINALYS IS KETONES [MASS/VOLU ME] IN URINE BY TEST STRIP NEGATIVE 10/08 Specimen Type: URINE No comment entered. Ordering Provider: ANKUSH BOWMAN Report Released Date/Time: Sep 24, 2022 01:55 PM Reporting Lab: [facility] [address] Performing Lab: [facility] [address] [place] [facility] URINALYS IS GLUCOSE [MASS/VOLU ME] IN URINE BY TEST STRIP NEGATIVE mg/dL <30 - 30 10/08 Specimen Type: URINE No comment entered. Ordering Provider: ANKUSH BOWMAN Report Released Date/Time: Sep 24, 2022 01:55 PM Reporting Lab: [facility] [id number] Performing Lab: [facility] [id number] [place] [facility] URINALYS IS PROTEIN [MASS/VOLU ME] IN URINE BY TEST STRIP 30 mg/dL <20 - 20 10/08 Specimen Type: URINE No comment entered. Ordering Provider: ANKUSH BOWMAN Report Released Date/Time: Sep 24, 2022 01:55 PM Reporting Lab: [facility] [id number] Performing Lab: [facility] [id number] [place] [facility] URINALYS IS PH OF URINE BY TEST STRIP 7.5 5.0 - 8.0 10/08 Specimen Type: URINE No comment entered. Ordering Provider: ANKUSH BOWMAN Report Released Date/Time: Sep 24, 2022 01:55 PM Reporting Lab: [facility] [address] Performing Lab: [facility] [address] [place] [facility] URINALYS IS LEUKOCYTES [#/AREA] IN URINE SEDIMENT BY MICROSCOPY HIGH POWER FIELD >180/[HP F] 0 - 7 10/08 H Specimen Type: URINE No comment entered. Ordering Provider: ANKUSH BOWMAN Report Released Date/Time: Sep 24, 2022 01:55 PM Reporting Lab: [facility] [address] Performing Lab: [facility] [address] [place] [facility] URINALYS IS BACTERIA [PRESENCE] IN URINE SEDIMENT BY LIGHT MICROSCOPY MANY 10/08 Specimen Type: URINE No comment entered. Ordering Provider: ANKUSH BOWMAN Report Released Date/Time: Sep 24, 2022 01:55 PM Reporting Lab: [facility] [address] Performing Lab: [facility] [address] [place] [facility] URINALYS IS ERYTHROCYT ES [#/AREA] IN URINE SEDIMENT BY MICROSCOPY HIGH POWER FIELD 33 /[HPF] 0 - 3 10/08 H Specimen Type: URINE No comment entered. Ordering Provider: ANKUSH BOWMAN Report Released Date/Time: Sep 24, 2022 01:55 PM Reporting Lab: [facility] [address] Performing Lab: [facility] [address] [place] [facility] URINALYS IS APPEARANCE OF URINE EX.TURBI D 10/08 Specimen Type: URINE No comment entered. Ordering Provider: ANKUSH BOWMAN Report Released Date/Time: Sep 24, 2022 01:55 PM Reporting Lab: [facility] [address] Performing Lab: [facility] [address] [place] [facility] URINALYS IS EPITHELIAL CELLS.SQUA MOUS [#/AREA] IN URINE SEDIMENT BY MICROSCOPY HIGH POWER FIELD 1 /[HPF] 10/08 Specimen Type: URINE No comment entered. Ordering Provider: ANKUSH BOWMAN Report Released Date/Time: Sep 24, 2022 01:55 PM Reporting Lab: [facility] [address] Performing Lab: [facility] [address] [place] [facility] URINALYS IS HEMOGLOBIN [PRESENCE] IN URINE BY TEST STRIP 1+ 10/08 Specimen Type: URINE No comment entered. Ordering Provider: ANKUSH BOWMAN Report Released Date/Time: Sep 24, 2022 01:55 PM Reporting Lab: [facility] [address] Performing Lab: [facility] [address] [place] [facility] URINALYS IS NITRITE [PRESENCE] IN URINE BY TEST STRIP NEGATIVE 10/08 Specimen Type: URINE No comment entered. Ordering Provider: ANKUSH BOWMAN Report Released Date/Time: Sep 24, 2022 01:55 PM Reporting Lab: [facility] [address] Performing Lab: [facility] [address] [place] [facility] URINALYS IS LEUKOCYTE CLUMPS [#/VOLUME] IN URINE BY AUTOMATED COUNT PRESENT 10/08 Specimen Type: URINE No comment entered. Ordering Provider: ANKUSH BOWMAN Report Released Date/Time: Sep 24, 2022 01:55 PM Reporting Lab: [facility] [address] Performing Lab: [facility] [address] [place] [facility] URINALYS IS LEUKOCYTE ESTERASE [PRESENCE] IN URINE BY TEST STRIP 500 10/08 Specimen Type: URINE No comment entered. Ordering Provider: ANKUSH BOWMAN Report Released Date/Time: Sep 24, 2022 01:55 PM Reporting Lab: [facility] [address] Performing Lab: [facility] [address] [place] [facility] ALBUMIN ALBUMIN [MASS/VOLU ME] IN SERUM OR PLASMA 4.2 g/dL 3.5 - 5.2 10/08 Specimen Type: PLASMA No comment entered. Ordering Provider: ANKUSH BOWMAN Report Released Date/Time: Sep 24, 2022 01:55 PM Reporting Lab: [facility] [address] Performing Lab: [facility] [address] [place] [facility] PRE-ALBU MIN PREALBUMIN [MASS/VOLU ME] IN SERUM OR PLASMA 28.4 mg/dL 14.0 - 45.0 10/08 Specimen Type: SERUM No comment entered. Ordering Provider: ANKUSH BOWMAN Report Released Date/Time: Sep 24, 2022 01:55 PM Reporting Lab: [facility] [address] Performing Lab: [facility] [address] [place] [facility] CBC & DIFF LEUKOCYTES [#/VOLUME] IN BLOOD BY AUTOMATED COUNT 7.32 10*3/uL 4.0 - 11.0 10/08 Specimen Type: BLOOD Comment: Automated Differentia l Performed Ordering Provider: ANKUSH BOWMAN Report Released Date/Time: Sep 24, 2022 01:55 PM Reporting Lab: [facility] [address] Performing Lab: [facility] [address] [place] [facility] CBC & DIFF ERYTHROCYT ES [#/VOLUME] IN BLOOD BY AUTOMATED COUNT 4.80 10*6/uL 4.6 - 6.2 10/08 Specimen Type: BLOOD Comment: Automated Differentia l Performed Ordering Provider: ANKUSH BOWMAN Report Released Date/Time: Sep 24, 2022 01:55 PM Reporting Lab: [facility] [address] Performing Lab: [facility] [address] [place] [facility] CBC & DIFF HEMOGLOBIN [MASS/VOLU ME] IN BLOOD 14.7 g/dL 13.5 - 17.9 10/08 Specimen Type: BLOOD Comment: Automated Differentia l Performed Ordering Provider: ANKUSH BOWMAN Report Released Date/Time: Sep 24, 2022 01:55 PM Reporting Lab: [facility] [address] Performing Lab: [facility] [address] [place] [facility] CBC & DIFF HEMATOCRIT [VOLUME FRACTION] OF BLOOD BY AUTOMATED COUNT 44.2 41 - 54 10/08 Specimen Type: BLOOD Comment: Automated Differentia l Performed Ordering Provider: ANKUSH BOWMAN Report Released Date/Time: Sep 24, 2022 01:55 PM Reporting Lab: [facility] [address] Performing Lab: [facility] [address] [place] [facility] CBC & DIFF MCV [ENTITIC VOLUME] BY AUTOMATED COUNT 92.1 fL 80 - 100 10/08 Specimen Type: BLOOD Comment: Automated Differentia l Performed Ordering Provider: ANKUSH BOWMAN Report Released Date/Time: Sep 24, 2022 01:55 PM Reporting Lab: [facility] [address] Performing Lab: [facility] [address] [place] [facility] CBC & DIFF MCH [ENTITIC MASS] BY AUTOMATED COUNT 30.6 pg 27 - 33 10/08 Specimen Type: BLOOD Comment: Automated Differentia l Performed Ordering Provider: ANKUSH BOWMAN Report Released Date/Time: Sep 24, 2022 01:55 PM Reporting Lab: [facility] [address] Performing Lab: [facility] [address] [place] [facility] CBC & DIFF MCHC [MASS/VOLU ME] BY AUTOMATED COUNT 33.3 g/dL 32.0 - 37.5 10/08 Specimen Type: BLOOD Comment: Automated Differentia l Performed Ordering Provider: ANKUSH BOWMAN Report Released Date/Time: Sep 24, 2022 01:55 PM Reporting Lab: [facility] [address] Performing Lab: [facility] [address] [place] [facility] CBC & DIFF PLATELETS [#/VOLUME] IN BLOOD BY AUTOMATED COUNT 144 10*3/uL 150 - 400 10/08 L Specimen Type: BLOOD Comment: Automated Differentia l Performed Ordering Provider: ANKUHS BOWMAN Report Released Date/Time: Sep 24, 2022 01:55 PM Reporting Lab: [facility] [address] Performing Lab: [facility] [address] [place] [facility] CBC & DIFF PLATELET MEAN VOLUME [ENTITIC VOLUME] IN BLOOD BY AUTOMATED COUNT 10.8 fL 7.4 - 10.4 10/08 H Specimen Type: BLOOD Comment: Automated Differentia l Performed Ordering Provider: ANKUSH BOWMAN Report Released Date/Time: Sep 24, 2022 01:55 PM Reporting Lab: [facility] [address] Performing Lab: [facility] [address] [place] [facility] CBC & DIFF NEUTROPHIL S/100 LEUKOCYTES IN BLOOD BY MANUAL COUNT 55.5 10/08 Specimen Type: BLOOD Comment: Automated Differentia l Performed Ordering Provider: ANKUSH BOWMAN Report Released Date/Time: Sep 24, 2022 01:55 PM Reporting Lab: [facility] [address] Performing Lab: [facility] [address] [place] [facility] CBC & DIFF LYMPHOCYTE S/100 LEUKOCYTES IN BLOOD BY MANUAL COUNT 31.4 10/08 Specimen Type: BLOOD Comment: Automated Differentia l Performed Ordering Provider: ANKUSH BOWMAN Report Released Date/Time: Sep 24, 2022 01:55 PM Reporting Lab: [facility] [address] Performing Lab: [facility] [address] [place] [facility] CBC & DIFF MONOCYTES/ 100 LEUKOCYTES IN BLOOD BY AUTOMATED COUNT 10.2 10/08 Specimen Type: BLOOD Comment: Automated Differentia l Performed Ordering Provider: ANKUSH BOWMAN Report Released Date/Time: Sep 24, 2022 01:55 PM Reporting Lab: [facility] [address] Performing Lab: [facility] [address] [place] [facility] CBC & DIFF EOSINOPHIL S/100 LEUKOCYTES IN BLOOD BY AUTOMATED COUNT 2.2 10/08 Specimen Type: BLOOD Comment: Automated Differentia l Performed Ordering Provider: ANKUSH BOWMAN Report Released Date/Time: Sep 24, 2022 01:55 PM Reporting Lab: [facility] [address] Performing Lab: [facility] [address] [place] [facility] CBC & DIFF BASOPHILS/ 100 LEUKOCYTES IN BLOOD BY MANUAL COUNT 0.4 10/08 Specimen Type: BLOOD Comment: Automated Differentia l Performed Ordering Provider: ANKUSH BOWMAN Report Released Date/Time: Sep 24, 2022 01:55 PM Reporting Lab: [facility] [address] Performing Lab: [facility] [address] [place] [facility] CBC & DIFF ERYTHROCYT E DISTRIBUTI ON WIDTH [RATIO] BY AUTOMATED COUNT 15.9 11.5 - 14.5 10/08 H Specimen Type: BLOOD Comment: Automated Differentia l Performed Ordering Provider: ANKUSH BOWMAN Report Released Date/Time: Sep 24, 2022 01:55 PM Reporting Lab: [facility] [address] Performing Lab: [facility] [address] [place] [facility] CBC & DIFF LYMPHOCYTE S [#/VOLUME] IN BLOOD BY AUTOMATED COUNT 2.30 10*3/uL 1.0 - 4.0 10/08 Specimen Type: BLOOD Comment: Automated Differentia l Performed Ordering Provider: ANKUSH BOWMAN Report Released Date/Time: Sep 24, 2022 01:55 PM Reporting Lab: [facility] [address] Performing Lab: [facility] [address] [place] [facility] CBC & DIFF MONOCYTES [#/VOLUME] IN BLOOD BY AUTOMATED COUNT 0.75 10*3/uL 0.1 - 1.0 10/08 Specimen Type: BLOOD Comment: Automated Differentia l Performed Ordering Provider: ANKUSH BOWMAN Report Released Date/Time: Sep 24, 2022 01:55 PM Reporting Lab: [facility] [address] Performing Lab: [facility] [address] [place] [facility] CBC & DIFF NEUTROPHIL S [#/VOLUME] IN BLOOD BY AUTOMATED COUNT 4.06 10*3/uL 2.0 - 7.7 10/08 Specimen Type: BLOOD Comment: Automated Differentia l Performed Ordering Provider: ANKUSH BOWMAN Report Released Date/Time: Sep 24, 2022 01:55 PM Reporting Lab: [facility] [address] Performing Lab: [facility] [address] [place] [facility] CBC & DIFF EOSINOPHIL S [#/VOLUME] IN BLOOD BY AUTOMATED COUNT 0.16 10*3/uL 0 - 0.5 10/08 Specimen Type: BLOOD Comment: Automated Differentia l Performed Ordering Provider: ANKUSH BOWMAN Report Released Date/Time: Sep 24, 2022 01:55 PM Reporting Lab: [facility] [address] Performing Lab: [facility] [address] [place] [facility] CBC & DIFF BASOPHILS [#/VOLUME] IN BLOOD BY AUTOMATED COUNT 0.03 10*3/uL 0 - 0.2 10/08 Specimen Type: BLOOD Comment: Automated Differentia l Performed Ordering Provider: ANKUSH BOWMAN Report Released Date/Time: Sep 24, 2022 01:55 PM Reporting Lab: [facility] [address] Performing Lab: [facility] [address] [place] [facility] CBC & DIFF IG(META,MY MALACHI,PRO) 0.3 10/08 Specimen Type: BLOOD Comment: Automated Differentia l Performed Ordering Provider: ANKUSH BOWMAN Report Released Date/Time: Sep 24, 2022 01:55 PM Reporting Lab: [facility] [address] Performing Lab: [facility] [address] [place] [facility] CBC & DIFF IMMATURE GRANULOCYT ES [PRESENCE] IN BLOOD BY AUTOMATED COUNT 0.02 10*3/uL 0 - 0.1 10/08 Specimen Type: BLOOD Comment: Automated Differentia l Performed Ordering Provider: ANKUSH BOWMAN Report Released Date/Time: Sep 24, 2022 01:55 PM Reporting Lab: [facility] [address] Performing Lab: [facility] [address] [place] [facility] COMPREHE NSIVE METABOLI C PANEL+MG CREATININE [MASS/VOLU ME] IN SERUM OR PLASMA 0.7 mg/dL 0.7 - 1.2 10/08 Specimen Type: PLASMA No comment entered. Ordering Provider: ANKUSH BOWMAN Report Released Date/Time: Sep 24, 2022 01:55 PM Reporting Lab: [facility] [address] Performing Lab: [place] [phone] [facility] COMPREHE NSIVE METABOLI C PANEL+MG UREA NITROGEN [MASS/VOLU ME] IN SERUM OR PLASMA 16 mg/dL 8 - 26 10/08 Specimen Type: PLASMA No comment entered. Ordering Provider: ANKUSH BOWMAN Report Released Date/Time: Sep 24, 2022 01:55 PM Reporting Lab: [facility] [address] Performing Lab: [facility] [address] [facility] COMPREHE NSIVE METABOLI C PANEL+MG GLUCOSE [MASS/VOLU ME] IN SERUM OR PLASMA 94 mg/dL 70 - 100 10/08 Specimen Type: PLASMA No comment entered. Ordering Provider: ANKUSH BOWMAN Report Released Date/Time: Sep 24, 2022 01:55 PM Reporting Lab: [facility] [address] Performing Lab: [facility] [address] [place] [facility] COMPREHE NSIVE METABOLI C PANEL+MG SODIUM [MOLES/VOL UME] IN SERUM OR PLASMA 138 mmol/L 136 - 145 10/08 Specimen Type: PLASMA No comment entered. Ordering Provider: ANKUSH BOWMAN Report Released Date/Time: Sep 24, 2022 01:55 PM Reporting Lab: [facility] [address] Performing Lab: [facility] [address] [place] [facility] COMPREHE NSIVE METABOLI C PANEL+MG POTASSIUM [MOLES/VOL UME] IN SERUM OR PLASMA 3.9 mmol/L 3.5 - 5.1 10/08 Specimen Type: PLASMA No comment entered. Ordering Provider: ANKUSH BOWMAN Report Released Date/Time: Sep 24, 2022 01:55 PM Reporting Lab: [facility] [address] Performing Lab: [facility] [address] [place] [facility] COMPREHE NSIVE METABOLI C PANEL+MG CHLORIDE [MOLES/VOL UME] IN SERUM OR PLASMA 101 mmol/L 98 - 107 10/08 Specimen Type: PLASMA No comment entered. Ordering Provider: ANKUSH BOWMAN Report Released Date/Time: Sep 24, 2022 01:55 PM Reporting Lab: [facility] [address] Performing Lab: [facility] [address] [place] [facility] COMPREHE NSIVE METABOLI C PANEL+MG CARBON DIOXIDE, TOTAL [MOLES/VOL UME] IN SERUM OR PLASMA 28 mmol/L 22 - 29 10/08 Specimen Type: PLASMA No comment entered. Ordering Provider: ANKUSH BOWMAN Report Released Date/Time: Sep 24, 2022 01:55 PM Reporting Lab: [facility] [address] Performing Lab: [facility] [address] [place] [facility] COMPREHE NSIVE METABOLI C PANEL+MG CALCIUM [MASS/VOLU ME] IN SERUM OR PLASMA 9.7 mg/dL 8.4 - 10.2 10/08 Specimen Type: PLASMA No comment entered. Ordering Provider: ANKUSH BOWMAN Report Released Date/Time: Sep 24, 2022 01:55 PM Reporting Lab: [facility] [address] Performing Lab: [facility] [address] [place] [facility] COMPREHE NSIVE METABOLI C PANEL+MG PROTEIN [MASS/VOLU ME] IN SERUM OR PLASMA 7.6 g/dL 6.0 - 8.3 10/08 Specimen Type: PLASMA No comment entered. Ordering Provider: ANKUSH BOWMAN Report Released Date/Time: Sep 24, 2022 01:55 PM Reporting Lab: [facility] [address] Performing Lab: [facility] [address] [place] [facility] COMPREHE NSIVE METABOLI C PANEL+MG ALBUMIN [MASS/VOLU ME] IN SERUM OR PLASMA 4.2 g/dL 3.5 - 5.2 10/08 Specimen Type: PLASMA No comment entered. Ordering Provider: ANKUSH BOWMAN Report Released Date/Time: Sep 24, 2022 01:55 PM Reporting Lab: [facility] [address] Performing Lab: [facility] [address] [facility] COMPREHE NSIVE METABOLI C PANEL+MG BILIRUBIN. TOTAL [MASS/VOLU ME] IN SERUM OR PLASMA 0.6 mg/dL 0.2 - 1.2 10/08 Specimen Type: PLASMA No comment entered. Ordering Provider: ANKUSH BOWMAN Report Released Date/Time: Sep 24, 2022 01:55 PM Reporting Lab: [facility] [address] Performing Lab: [facility] [address] [facility] COMPREHE NSIVE METABOLI C PANEL+MG MAGNESIUM [MASS/VOLU ME] IN SERUM OR PLASMA 2.1 mg/dL 1.6 - 2.6 10/08 Specimen Type: PLASMA No comment entered. Ordering Provider: ANKUSH BOWMAN Report Released Date/Time: Sep 24, 2022 01:55 PM Reporting Lab: [facility] [address] Performing Lab: [facility] [address] [place] [facility] COMPREHE NSIVE METABOLI C PANEL+MG ANION GAP IN SERUM OR PLASMA 9 mmol/L 5 - 15 10/08 Specimen Type: PLASMA No comment entered. Ordering Provider: ANKUSH BOWMAN Report Released Date/Time: Sep 24, 2022 01:55 PM Reporting Lab: [facility] [address] Performing Lab: [facility] [address] [place] [facility] COMPREHE NSIVE METABOLI C PANEL+MG ALKALINE PHOSPHATAS E [ENZYMATIC ACTIVITY/V OLUME] IN SERUM OR PLASMA 96 U/L 40 - 150 10/08 Specimen Type: PLASMA No comment entered. Ordering Provider: ANKUSH BOWMAN Report Released Date/Time: Sep 24, 2022 01:55 PM Reporting Lab: [facility] [address] Performing Lab: [facility] [address] [place] [facility] COMPREHE NSIVE METABOLI C PANEL+MG ALANINE AMINOTRANS FERASE [ENZYMATIC ACTIVITY/V OLUME] IN SERUM OR PLASMA 29 U/L <55 - 55 10/08 Specimen Type: PLASMA No comment entered. Ordering Provider: ANKUSH BOWMAN Report Released Date/Time: Sep 24, 2022 01:55 PM Reporting Lab: [facility] [address] Performing Lab: [facility] [address] [place] [facility] COMPREHE NSIVE METABOLI C PANEL+MG ASPARTATE AMINOTRANS FERASE [ENZYMATIC ACTIVITY/V OLUME] IN SERUM OR PLASMA 22 U/L <34 - 34 10/08 Specimen Type: PLASMA No comment entered. Ordering Provider: ANKUSH BOWMAN Report Released Date/Time: Sep 24, 2022 01:55 PM Reporting Lab: [facility] [address] Performing Lab: [facility] [address] [place] [facility] COMPREHE NSIVE METABOLI C PANEL+MG GLOMERULAR FILTRATION RATE/1.73 SQ M.PREDICTE D [VOLUME RATE/AREA] IN SERUM, PLASMA OR BLOOD BY CREATININE -BASED FORMULA (CKD-EPI) >90 60 10/08 Specimen Type: PLASMA No comment entered. Ordering Provider: ANKUSH BOWMAN Report Released Date/Time: Sep 24, 2022 01:55 PM Reporting Lab: [facility] [address] Performing Lab: [facility] [address] [place] [facility] CYSTATIN C WITH EGFR CYSTATIN C [MASS/VOLU ME] IN SERUM OR PLASMA 1.38 mg/L 0.51 - 1.05 10/08 H Specimen Type: PLASMA No comment entered. Ordering Provider: ANKUSH BOWMAN Report Released Date/Time: Sep 24, 2022 01:55 PM Reporting Lab: [facility] [address] Performing Lab: [facility] [address] [place] [facility] CYSTATIN C WITH EGFR CYSTATIN C AND GLOMERULAR FILTRATION RATE BY CYSTATIN-B ASED FORMULA PANEL - SERUM OR PLASMA 48 60 10/08 L Specimen Type: PLASMA No comment entered. Ordering Provider: ANKUSH BOWMAN Report Released Date/Time: Sep 24, 2022 01:55 PM Reporting Lab: [facility] [address] Performing Lab: [facility] [address] [place] [facility] VIT D 25-OH,TO ZAMZAM 25-HYDROXY VITAMIN D3 [MASS/VOLU ME] IN SERUM OR PLASMA 54 ng/mL 12 - 50 10/08 H Specimen Type: SERUM No comment entered. Ordering Provider: ANKUSH BOWMAN Report Released Date/Time: Sep 24, 2022 01:55 PM Reporting Lab: [facility] [address] Performing Lab: [facility] [address] [place] [facility] Encounters Combined list of: 1) Encounters from Department of Veterans Affairs facilities going back up to thelast 18 months. 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 Location Location Details Encounter Type Encounter Number Reason For Visit Attending Provider ADM Date DC Date Status Disposition Source [place] [facility] PHONE CALL 11-20 MIN [id number] Diagnos is: ICD-10- CM Z73.6 Limitat ion of activit ies due to disabil ity<br/ > BOUSANGELI GRACIA AN P 04/23 [facility] [place] [facility] Outpatient Encounter [id number] 04/24 [place] [facility] [place] [facility] Outpatient Encounter [id number] 05/24 [facility] OFF/OP EST MAY X REQ PHY/QHP [id number] Diagnos is: ICD-10- CM G82.20 Paraple mary kay, unspeci fied
VIOLA YOON NDA 05/28 [facility] WHEELCHAIR MNGMENT TRAINING [id number] Diagnos is: ICD-10- CM Z73.6 Limitat ion of activit ies due to disabil ity<br/ > BOUSLOG,RY AN P 06/10 [facility] Outpatient Encounter [id number] 10/28 [facility] [place] [facility] Outpatient Encounter [phone] 11/20 [facility] [place] [facility] Outpatient Encounter [id number] 05/12 [facility] [place] [facility] Outpatient Encounter [id number] 07/23 [facility] [place] [facility] Outpatient Encounter [id number] DEE ANDERS 07/28 [facility] [place] [facility] Outpatient Encounter [phone] 09/23 [facility] Social History Combined list of available smoking, tobacco, and other social history from 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 Social History Type Response Date Comment Sour e Tobacco [facility] status [facility] [facility] NEVER USED 05/28/20 22 SADAF TREVINO [facility] This section is an empty social history section. [facility] Plan of Care List of future care activities from 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 Additional future care activities may be listed in the Assessment and Plan section. Date/Time Care Activity Care Activity Detail Facili ty 09/24/2024 Consult Order PROSTHETICS REQU EST Cons Vp Software Support's Choice [facility] Advance Directives List of completed, amended, or rescinded Advance Directives on record at Department of [facility] facilities. An actual copy of the Directive is not included. Date Advance Directive Provider Source 02/05/2023 ADVANCE DIRECTIVE DISCUSSION GUSTAVO ABAD [facility]
--- OUTSIDE RECORDS SUMMARY | 2024-09-28 12:46 | XMS_ITS | Encounter Summary ---
Author Name [facility] [place] Organization [facility] [place] Address [address] [place] [address] Care Team Providers Care Archeologist Classical Name Role Phone SHANTAL HANSON Primary Care [...] PART B Jul 12, 2004 PART B [id number] [phone] MIKAYLA,F RED PATIENT MEDICARE (WNR) MEDICARE (M) PART A Oct 11, 2002 PART A [id number] [phone] Kasie DEGROOT RED PATIENT Selected Encounter This [...] 05, 2023 ADVANCE DIRECTIVE DISCUSSION GUSTAVO ABAD [facility] Encounter Notes: All associated encounter notes This section contains the clinical notes associated to the Encounter. Date/Time Encounter Note(s) Provider Source Oct 28, 2023 02:46 PM ADDENDUM: LOCAL TITLE: Addendum STANDARD TITLE: ADDENDUM DATE OF NOTE: OCT 28, 2023@14:46:05 ENTRY DATE: OCT 28, 2023@14:46:07 AUTHOR: DENNIS RETANA COSIGNER: URGENCY: STATUS: COMPLETED [place] [facility] [facility] nurse as he sees them. Prescription scanned into this note. /el/ DENNIS RETANA LPN Co-Central Office Installer Signed: 10/28/2023 14:48 Receipt Acknowledged By: 12/24/2023 07:40 /el/ SPENSER YOON TATTOO IDENTIFIER --- Original Document --- 10/28/23 PHARMACY NON [place] CARE MEDICATIONS: [facility] Outpatient Pharmacy RECEIVED electronic prescription(s) (eRX(s)) from NON-VA Provider:SHANEKA HAHN Date eRX received: Oct [place] not eligible to receive non-VA prescription(s) at this time. Prescription(s) REDIRECTED via FAX to: [X][facility] (Dual) Care [ ]Other: [ ] [facility] ([facility]) [ ] [facility] [ ] [facility] [ ] [facility] eRx Reference #:[id number] eRx Prescription Information: eRx Drug: Transparent Mepitel Film eRx Qty: 20 eRx Refills: 2 eRx Days Supply: eRx Sig: As directed, following wound care orders /silvano CASH PHARMACIST Signed: 10/28/2023 08:38 DENNIS RETANA [facility] Oct 28, 2023 08:37 AM PHARMACY NOTE: LOCAL TITLE: PHARMACY NON VA CARE MEDICATIONS STANDARD TITLE: PHARMACY NOTE DATE OF NOTE: OCT 28, 2023@08:37 ENTRY DATE: OCT 28, 2023@08:37:30 AUTHOR: CASA CASH EXP COSIGNER: URGENCY: STATUS: COMPLETED PHARMACY NON VA CARE MEDICATIONS Has ADDENDA [facility] Outpatient Pharmacy RECEIVED electronic prescription(s) (eRX(s)) from NON-VA Provider:SHANEKA HAHN Date eRX received: Oct not eligible to receive non-VA prescription(s) at this time. Prescription(s) REDIRECTED via FAX to: [X][facility]) [facility] [ ]Other: [ ] [facility] (to) [ ] [facility] [ ] [facility] [ ] [facility] eRx Reference #:[id number] eRx Prescription Information: eRx Drug: Transparent Mepitel Film eRx Qty: 20 eRx Refills: 2 eRx Days Supply: eRx Sig: As directed, following wound care orders /el/ CASA CASH PHARMACIST Signed: 10/28/2023 08:38 10/28/2023 ADDENDUM STATUS: COMPLETED [place] [facility] forwarding to [facility] nurse as he sees them. Prescription scanned into this note. /el/ DENNIS RETANA LPN Co-Central Office Installer Signed: 10/28/2023 14:48 Receipt Acknowledged By: * AWAITING SIGNATURE * SPENSER YOON ANDREA L [facility]
--- OUTSIDE RECORDS SUMMARY | 2024-09-28 12:47 | XMS_ITS | Clinical Summary ---
Author Organization [facility] Address [address] [place] [address] Care Team Providers Care Metallurgical Engineer Name Role Phone Franklin Squires MD Primary Care Provider [phone] Source Comments You are receiving this document [...] for each transition of care or referral. [employer] Allergies Active Allergy Reactions Criticality Noted [...] Blood Pressure 120/63 01/18/2022 12:59 PM MANAGER VOICE Pulse 87 01/18/2022 12:59 PM MANAGER VOICE Temperature 36.3 C (97.4 F) 01/18/2022 12:59 PM MANAGER VOICE Respiratory Rate 16 05/24/2016 4:27 PM CDT [...] - Tdap) 06/28/2021 06/28/2011 COVID-19 Vaccine ( - season) 2024 08/06/2021, 01/25/2021, 01/02/2021 Influenza [...] this topic Medical Devices Implanted Type Area Inside Channel Account Manager Device Identifier Shelf Expiration Date Model / Serial / Lot [id number] 4ml Tisseel Explanted:([place] ntity not on file) BIOLOGIC N/A: NECK Lynne Fenwall 09/10/2011 [id number] / [id number] / [id number] Description:posterior Cath Intrathecal Indura - [id number] Implanted:Qty: 1 on 05/09/2010 at [facility] DEVICE Right: LUMBAR SPINE BlueArc 01/18/2012 8709 / N/A / [id number] 5 Cath Intrathecal Indura - [id number] Implanted:Qty: 1 on 05/29/2010 at [facility] DEVICE [employer] 8709 / / Scr Indira Conic 7.3x80 - [id number] Implanted:Qty: 1 on 03/13/2011 at [facility] DEVICE Right: FEMUR DISTAL [employer]ynthe[employer] 0 / NONE / NONE Plt Lcp Cndl Rt 4.5x170 6h - [id number] Implanted:Qty: 1 on 03/13/2011 at [facility] DEVICE Right: FEMUR DISTAL [employer] 222.656 / NONE / NONE Description:6 hole 170mm rig ht 4.5mm lcp condylar plate Scr Didier Ss Sftp 4.5x40 - [id number] Implanted:Qty: 1 on 03/13/2011 at [facility] DEVICE Left: FEMUR DISTAL [employer] 214.840 / NONE / NONE Scr Didier Ss Sftp 4.5x50 - [id number] Implanted:Qty: 1 on 03/13/2011 at [facility] DEVICE Left: FEMUR DISTAL [employer] 214.850 / NONE / NONE Scr Indira Lk 5.0x80 - [id number] Implanted:Qty: 2 on 03/13/2011 at [facility] DEVICE Left: FEMUR DISTAL [employer] 02.205.08 0 / NONE / NONE Scr Indira Lk 5.0x85 - [id number] Implanted:Qty: 2 on 03/13/2011 at [facility] DEVICE Left: FEMUR DISTAL [employer] 02.205.08 5 / NONE / NONE Scr Lk Sftp T25 5.0x50 - [id number] Implanted:Qty: 1 on 03/13/2011 at [facility] DEVICE Left: FEMUR DISTAL [employer] 212.219 / NONE / NONE Scr Lk Sftp T25 5.0x60 - [id number] Implanted:Qty: 1 on 03/13/2011 at [facility] DEVICE Left: FEMUR DISTAL [employer] 212.221 / NONE / NONE Scr Indira Conic 7.3x85 - [id number] Implanted:Qty: 1 on 03/13/2011 at [facility] DEVICE Left: FEMUR DISTAL [employer] 02.207.28 5 / NONE / NONE Plt Lcp Cndl Lt 4.5x170 6h - [id number] Implanted:Qty: 1 on 03/13/2011 at [facility] DEVICE Left: FEMUR DISTAL [employer] 222.657 / NONE / NONE Description:6 hole 170mmleng th left 4.5mm lcp condylar plate. Scr Didier Sftp 3.5x60 F-Thrd - [id number] Implanted:Qty: 1 on 03/13/2011 at [facility] DEVICE Left: TIBIA PROXIMAL [employer]ynthe[employer] 204.860 / NONE / NONE Scr Star Lk Sftp 3.5x32 - [id number] Implanted:Qty: 1 on 03/13/2011 at [facility] DEVICE Left: TIBIA PROXIMAL [employer] 212.112 / NONE / NONE Scr Star Lk Sftp 3.5x55 - [id number] Implanted:Qty: 2 on 03/13/2011 at [facility] DEVICE Left: TIBIA PROXIMAL [employer] 212.123 / NONE / NONE Scr Star Lk Sftp 3.5x60 - [id number] Implanted:Qty: 2 on 03/13/2011 at [facility] DEVICE Left: TIBIA PROXIMAL [employer] 212.124 / NONE / NONE Plt Lcp M/Prox Lt 3.5x94 4h - [id number] Implanted:Qty: 1 on 03/13/2011 at [facility] DEVICE Left: TIBIA PROXIMAL [employer] 239.955 / NONE / NONE Scr Didier Ss Sftp 4.5x36 - [id number] Implanted:Qty: 1 on 03/13/2011 at [facility] DEVICE Right: FEMUR DISTAL [employer] 214.836 / NONE / NONE Scr Didier Ss Sftp 4.5x44 - [id number] Implanted:Qty: 1 on 03/13/2011 at [facility] DEVICE Right: FEMUR DISTAL [employer] 214.844 / NONE / NONE Scr Indira Lk 5.0x75 - [id number] Implanted:Qty: 1 on 03/13/2011 at [facility] DEVICE Right: FEMUR DISTAL [employer] 02.205.07 5 / NONE / NONE Scr Indira Lk 5.0x85 - [id number] Implanted:Qty: 2 on 03/13/2011 at [facility] DEVICE Right: FEMUR DISTAL [employer] 02.205.08 5 / NONE / NONE Scr Lk Sftp T25 5.0x44 - [id number] Implanted:Qty: 1 on 03/13/2011 at [facility] DEVICE Right: FEMUR DISTAL [employer] 212.216 / NONE / NONE Scr Lk Sftp T25 5.0x65 - [id number] Implanted:Qty: 1 on 03/13/2011 at [facility] DEVICE Right: FEMUR DISTAL [employer] 212.222 / NONE / NONE Plt Lp T Ti Str 4h - [id number] Implanted:Qty: 3 on 07/28/2014 by Cooper Shelley MD at [facility] DEVICE Right: SKULL [employer]ynthes [employer] 421.504 / / Scr Matrix Sfdr 4mm - [id number] Implanted:Qty: 6 on 07/28/2014 by Cooper Shelley MD at [facility] DEVICE Right: SKULL [employer] 04.503.10 4.01 / / Lead Linear 3-4 8 Contact 50cm - [id number] Implanted:Qty: 1 on 03/08/2016 by Zelalem Cohen DO at [facility] DEVICE N/A: OTHER-SEE DESCRIPTION [place] [facility] 09/10/2017 [id number] 2500 / / [id number] Description:LUMBAR Lead Linear 3-4 8 Contact 50cm - [id number] Implanted:Qty: 1 on 03/08/2016 by Zelalem Cohen DO at [facility] DEVICE N/A: OTHER-SEE DESCRIPTION [place] [facility] 09/10/2017 [id number] 2500 / / [id number] Description:LUMBAR Lead Linear 3-4 8 Contact 50cm - [id number] Implanted:Qty: 1 on 03/08/2016 by Zelalem Cohen DO at [facility] DEVICE N/A: OTHER-SEE DESCRIPTION [place] [facility] 09/10/2017 [id number] 2500 / / [id number] Description:LUMBAR Lead Linear 3-4 8 Contact 50cm - [id number] Implanted:Qty: 1 on 03/08/2016 by Zelalem Cohen DO at [facility] DEVICE N/A: OTHER-SEE DESCRIPTION [facility] 09/10/2017 [id number] 2500 / / [id number] Description:LUMBAR Lead Linear 3-4 8 Contact 50cm - [id number] Implanted:Qty: 1 on 05/24/2016 by Zelalem Cohen DO at [facility] DEVICE N/A: SPINE LUMBAR POSTERIOR [place] [facility] 01/31/2018 [id number] 2500 / [id number] / Lead Linear 3-4 8 Contact 50cm - [id number] Implanted:Qty: 1 on 05/24/2016 by Zelalem Cohen DO at [facility] DEVICE N/A: SPINE LUMBAR POSTERIOR [place] [facility] 04/26/2018 [id number] 2500 / [id number] / Lead Linear 3-4 8 Contact 50cm - [id number] Implanted:Qty: 1 on 05/24/2016 by Zelalem Cohen DO at [facility] DEVICE N/A: SPINE LUMBAR POSTERIOR [place] [facility] 04/26/2018 [id number] 2500 / [id number] / Lead Linear 3-4 8 Contact 50cm - [id number] Implanted:Qty: 1 on 05/24/2016 by Zelalem Cohen DO at [facility] DEVICE N/A: SPINE LUMBAR POSTERIOR [place] [facility] 04/26/2018 [id number] 2500 / [id number] / Generator Pulse Spectra - [id number] Implanted:Qty: 1 on 05/24/2016 by Zelalem Cohen DO at [facility] DEVICE N/A: SPINE LUMBAR POSTERIOR [place] [facility] 05/08/2018 [id number] 20 / [id number] / [id number] [place] [employer]lik - [id number] Implanted:Qty: 1 on 05/24/2016 by Zelalem Cohen DO at [facility] DEVICE N/A: SPINE LUMBAR POSTERIOR [place] [facility] 05/02/2018 [id number] 60 / / [id number] [place] Clik - [id number] Implanted:Qty: 1 on 05/24/2016 by Zelalem Cohen DO at [facility] DEVICE N/A: SPINE LUMBAR POSTERIOR [place] [facility] 02/28/2018 [id number] 60 / / [id number] Procedures Procedure Name Priority Date/Time Associated Diagnosis Comments CREATININE/GFR, WB POC Routine 01/06/2016 12:04 PM MANAGER VOICE Back pain, 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 HGB A1C Routine 07/29/2014 3:19 AM CDT from Last 3 Months or Most Recently Relevant to Health Maintenance Results * CREATININE/GFR, WB POC (01/06/2016 12:04 PM MANAGER VOICE) [facility] Whole Blood 0.9 0.66 - 1.25 mg/dl [facility] GFR, Estimated >60 >60 ml/min/1.7 3m2 [facility] GFR, Est., If Black >60 >60 ml/min/1.7 3m2 [facility] 01/06/2016 12:0 4 PM MANAGER VOICE 01/06/2016 12:21 PM MANAGER VOICE Trae Blair MD LAB_1 [facility] [phone] * (ABNORMAL) HGB A1C (07/29/2014 3:19 AM CDT) Hgb A1c 6.4(H) 4.3 - 6.1 % [facility] Comment: The usual A1C goal for people with diabetes, age 18-75, is <8.0%. Physicians may recommend a higher or lower goal for specific individuals. 07/29/2014 3:19 AM CDT 07/29/2014 3:22 AM CDT Narrative [facility] - 07/29/2014 12:53 PM CDT Performed at [facility], [address] [place] [address] [place] Wei PA-C LAB_[address] [address] from Last 3 Months or Most Recently [...] 5:44 PM 07/28/2014 6:50 PM Care Teams Metallurgical Engineer Relationship Specialty Start Date End Date Franklin Squires MD 100 [facility] [place] [address] PCP - General Family Practice 03/08/16
--- OUTSIDE RECORDS SUMMARY | 2024-09-28 12:47 | XMS_ITS | Encounter Summary ---
Author Organization [facility] Address [address], [place] [address] Care Team Providers Care Pen Rider Name Role Phone Franklin Squires MD Primary Care Provider Encounter Details Date Type Department Care Team (Late st Contact Info) Description 01/06/2016 Correspondence [facility] Radiology [address] [place] [address] Radiology, Provider MRI SAFETY SHEET AND COMPATIBILITY [...] on filedocumented in this encounter Care Teams Pen Rider Relationship Specialty Start Date End Date Franklin Squires MD [address] [place], [place] [address] [address] PCP - General Family Practice 03/08/16 documented as of this encounter
--- OUTSIDE RECORDS SUMMARY | 2024-09-28 12:47 | XMS_ITS | Encounter Summary ---
Author Organization [facility] Address [address], [place] [address] Care Team Providers Care Sql Developer Dba Name Role Phone Franklin Squires MD Primary Care Provider [phone] Encounter Details Date Type Department Care Team [...] filedocumented in this encounter Care Teams Sql Developer Dba Relationship Specialty Start Date End Date Franklin Squires MD 100 [facility] [address] PCP - General Family Practice 03/08/16 documented as of this encounter
--- OUTSIDE RECORDS SUMMARY | 2024-09-28 12:47 | XMS_ITS | Encounter Summary ---
Author Organization [facility] Address [address], [place] [address] Care Team Providers Care Service Architect Name Role Phone Franklin Squires MD Primary Care Provider [phone] Encounter Details Date Type Department Care Team (Latest Contact Info) Description 06/04/2014 Correspondence [facility] 401 Interventional Pain Management 401 [facility] [place] [address] Zelalem Cohen, DO [address] [place] [address] MEDICAID PT INFORMATION EMPI RECOVERY Social History [...] filedocumented in this encounter Care Teams Service Architect Relationship Specialty Start Date End Date Franklin Squires MD 100 [facility] [address] PCP - General Family Practice 03/08/16 documented as of this encounter
--- OUTSIDE RECORDS SUMMARY | 2024-09-28 12:47 | XMS_ITS | Encounter Summary ---
Author Organization [facility] Address [address] [address] Care Team Providers Care Snaker Driving Horses Name Role Phone Franklin Squires MD Primary [...] on filedocumented in this encounter Care Teams Snaker Driving Horses Relationship Specialty Start Date End Date Franklin Squires MD 100 [facility] [address] PCP - General Family Practice 03/08/16 documented as of this encounter
--- OUTSIDE RECORDS SUMMARY | 2024-09-28 12:47 | XMS_ITS | Encounter Summary ---
Author Organization [facility] [address], [place] [address] Care Team Providers Care Program Director Substance Abuse Name Role Phone Franklin Squires MD Primary Care Provider Encounter Details Date Type Department Care Team (Late st Contact Info) Description 02/05/2014 Correspondence [facility] Physical Therapy [address] [place] [address] Trudi Raymundo, PT [address] [place] [address] LETTER OF MEDICAL NECESSITY FOR A WHEELCHAIR [...] filedocumented in this encounter Care Teams Program Director Substance Abuse Relationship Specialty Start Date End Date Franklin Squires MD 100 [facility] [place] [address] PCP - General Family Practice 03/08/16 documented as of this encounter
--- OUTSIDE RECORDS SUMMARY | 2024-09-28 12:47 | XMS_ITS | Encounter Summary ---
Author Organization [facility] Address [address], [place] [address] Care Team Providers Care Cream Dipper Name Role Phone Franklin Squires MD Primary Care Provider Encounter Details Date Type Department Care Team (Late st Contact Info) Description 12/16/2013 Correspondence [facility] Radiology [address] [place] [address] Radiology, Provider MRI SAFETY SHEET AND COMPATIBILITY [...] Radiology, Provider - 12/16/2013 12:00 AM CST ADOPTION COUNSELOR documented in this encounter Plan of Treatment Not on file documented as of this encounter Visit Diagnoses Not on filedocumented in this encounter Care Teams Cream Dipper Relationship Specialty Start Date End Date Franklin Squires MD 100 [facility] [place] [address] PCP - General Family Practice 03/08/16 documented as of this encounter
--- OUTSIDE RECORDS SUMMARY | 2024-09-28 12:47 | XMS_ITS | Encounter Summary ---
Author Organization [facility] [address], [place] [address] Care Team Providers Care Sql Database Programmer Name Role Phone Franklin Squires MD Primary Care Provider [phone] Encounter Details Date Type Department Care Team (Late st Contact Info) Description 11/10/2014 Correspondence [facility] Physical Therapy [address] [place] [address] Trudi Raymundo, PT [address] [place] [address] LETTER OF MEDICAL NECESSITY Social History Tobacco [...] filedocumented in this encounter Care Teams Sql Database Programmer Relationship Specialty Start Date End Date Franklin Squires MD 100 [facility] [place] [address] PCP - General Family Practice 03/08/16 documented as of this encounter
--- OUTSIDE RECORDS SUMMARY | 2024-09-28 12:47 | XMS_ITS | Encounter Summary ---
Author Organization [facility] Address [address], [place] [address] Care Team Providers Care Green End Worker Name Role Phone Franklin Squires MD Primary Care Provider Encounter Details Date Type Department Care Team (Late st Contact Info) Description 06/11/2014 Correspondence [facility] 401 Physical Medicine 401 [facility] [place] [address] May Randle MD [address] [place] [address] [facility] Social History Tobacco Use Types Packs/Day [...] on filedocumented in this encounter Care Teams Green End Worker Relationship Specialty Start Date End Date Fraknlin Squires MD 100 [facility] [place] [address] PCP - General Family Practice 03/08/16 documented as of this encounter
--- OUTSIDE RECORDS SUMMARY | 2024-09-28 12:47 | XMS_ITS | Encounter Summary ---
Author Organization [facility] Address [address], [place] [address] Care Team Providers Care Special Day Class Teacher Name Role Phone Franklin Squires MD Primary Care Provider [phone] Encounter Details Date Type Department Care Team (Late st Contact Info) Description 11/13/2012 Correspondence [facility] Radiology [address] [place] [address] Radiology, Provider MRI SAFETY SHEET AND COMPATIBILITY [...] RADIOLOGY, PROVIDER - 11/13/2012 12:00 AM CST T MGR documented in this encounter Plan of Treatment Not on file documented as of this encounter Visit Diagnoses Not on filedocumented in this encounter Care Teams Special Day Class Teacher Relationship Specialty Start Date End Date Franklin Squires MD 100 [facility] [place] [address] PCP - General Family Practice 03/08/16 documented as of this encounter
--- OUTSIDE RECORDS SUMMARY | 2024-09-28 12:47 | XMS_ITS | Encounter Summary ---
Author Organization [facility] Address [address], [place] [address] Care Team Providers Care Systems Checkout Mechanic Name Role Phone Franklin Squires MD Primary Care Provider Encounter Details Date Type Department Care Team (Late st Contact Info) Description 04/20/[address] [address] Radiology, Provider MRI SAFETY SHEET AND COMPATIBILITY [...] filedocumented in this encounter Care Teams Systems Checkout Mechanic Relationship Specialty Start Date End Date Franklin Squires MD 100 [facility] [place] [address] PCP - General Family Practice 03/08/16 documented as of this encounter
--- OUTSIDE RECORDS SUMMARY | 2024-09-28 12:47 | XMS_ITS | Encounter Summary ---
Author Organization [facility] Address [address] [address] Care Team Providers Care Metal Can Inspector Name Role Phone Franklin Squires MD Primary Care Provider [phone] Encounter Details Date Type Department Care Team (Late st Contact Info) Description 07/23/2013 Correspondence [facility] 401 Interventional Pain Management 401 [facility] [place] [address] Zelalem Cohen DO [address] [place] [address] [employer] Social History Tobacco Use Types [...] Cohen MD - 07/23/2013 12:00 AM CDT AN OFFICER documented in this encounter Plan of Treatment Not on file documented as of this encounter Visit Diagnoses Not on filedocumented in this encounter Care Teams Metal Can Inspector Relationship Specialty Start Date End Date Franklin Squires MD 100 [facility] [place] [address] PCP - General Family Practice 03/08/16 documented as of this encounter
--- OUTSIDE RECORDS SUMMARY | 2024-09-28 12:47 | XMS_ITS | Encounter Summary ---
Author Organization [facility] Address [address], [place] [address] Care Team Providers Care Brownfield Redevelopment Site Manager Name Role Phone Franklin Squires MD Primary Care Provider [phone] Encounter Details Date Type Department Care Team (Latest Contact Info) Description 12/11/2017 Correspondence Physiatry/Physical Medicine at [facility] 295 [facility] [place] [address] May Randle MD [address] [place] [address] [employer] Social History Tobacco Use [...] on filedocumented in this encounter Care Teams Brownfield Redevelopment Site Manager Relationship Specialty Start Date End Date Franklin Squires MD [address] [place] [address] [place] [address] PCP - General Family Practice 03/08/16 documented as of this encounter
--- OUTSIDE RECORDS SUMMARY | 2024-09-28 12:47 | XMS_ITS | Encounter Summary ---
Author Organization [facility] Address [address], [place] [address] Care Team Providers Care Assistant Casino Shift Manager Name Role Phone Franklin Squires MD Primary Care Provider [phone] Encounter Details Date Type Department Care Team (Late st Contact Info) Description 11/23/2015 Correspondence External to External, [place] [address] LETTER [facility] Social History Tobacco Use Types [...] filedocumented in this encounter Care Teams Assistant Casino Shift Manager Relationship Specialty Start Date End Date Franklin Squires MD [address] [place] [address] [place] [address] PCP - General Family Practice 03/08/16 documented as of this encounter
--- OUTSIDE RECORDS SUMMARY | 2024-09-28 12:47 | XMS_ITS | Encounter Summary ---
Author Organization [facility] Address [address] [address] Care Team Providers Care Bakery Demonstrator Name Role Phone Franklin Squires MD [...] filedocumented in this encounter Care Teams Bakery Demonstrator Relationship Specialty Start Date End Date Franklin Squires MD 100 [facility] [address] PCP - General Family Practice 03/08/16 documented as of this encounter
--- OUTSIDE RECORDS SUMMARY | 2024-09-28 12:47 | XMS_ITS | Encounter Summary ---
Author Organization [facility] Address [address] [address] Care Team Providers Care Dancing Teacher Name Role Phone Franklin Squires MD Primary Care Provider [phone] Encounter Details Date Type Department Care Team (Late st Contact Info) Description 04/24/2012 Correspondence [facility] Radiology [address] [place] [address] Radiology, Provider MRI SAFETY SHEET AND COMPATIBILITY [...] on filedocumented in this encounter Care Teams Dancing Teacher Relationship Specialty Start Date End Date Franklin Squires MD 100 [facility] [place] [address] PCP - General Family Practice 03/08/16 documented as of this encounter
--- OUTSIDE RECORDS SUMMARY | 2024-09-28 12:47 | XMS_ITS | Encounter Summary ---
Author Organization [facility] Address [address] [address] Care Team Providers Care Imaging Account Manager Name Role Phone Franklin Squires MD Primary Care Provider Encounter Details Date Type Department Care Team (Late st Contact Info) Description 02/09/2016 Correspondence [facility] 401 NeuroSurgery 401 [facility] [place], [place] [id number] Jodi Aguila PA-C [address] [place] [address] PATIENT LIFT PRESCRIPTION Social History Tobacco Use [...] on filedocumented in this encounter Care Teams Imaging Account Manager Relationship Specialty Start Date End Date Franklin Squires MD 100 [facility] [place] [id number] PCP - General Family Practice 03/08/16 documented as of this encounter
--- OUTSIDE RECORDS SUMMARY | 2024-09-28 12:47 | XMS_ITS ---
Author Organization [facility] Address [address] [address] Care Team Providers Care Deburrer Strip Name Role Phone Franklin Squires MD Primary Care Provider [phone] Active Problems Problem Noted Date Diagnosed Date [...]
--- OUTSIDE RECORDS SUMMARY | 2024-09-28 12:47 | XMS_ITS | Encounter Summary ---
Author Organization [facility] Address [address] [address] Care Team Providers Care Studio Grip Name Role Phone Franklin Squires MD Primary Care Provider [phone] Encounter Details Date Type Department Care Team (Late st Contact Info) Description 07/28/2014 Outside Hospital External to External, Provider No address [address] ER VISIT/TRANSFER Social History Tobacco [...] filedocumented in this encounter Care Teams Studio Grip Relationship Specialty Start Date End Date Franklin Squires MD 100 [facility] [place] [address] PCP - General Family Practice 03/08/16 documented as of this encounter
--- OUTSIDE RECORDS SUMMARY | 2024-09-28 12:47 | XMS_ITS | Encounter Summary ---
Author Organization [facility] Address [address] [address] Care Team Providers Care Table Lever Operator Name Role Phone Franklin Squires MD Primary Care Provider [phone] Encounter Details Date Type Department Care Team [...] on filedocumented in this encounter Care Teams Table Lever Operator Relationship Specialty Start Date End Date Franklin Squires MD 100 [facility] [address] PCP - General Family Practice 03/08/16 documented as of this encounter
--- OUTSIDE RECORDS SUMMARY | 2024-09-28 12:47 | XMS_ITS | Encounter Summary ---
Author Organization [facility] [address], [place] [address] Care Team Providers Care Cabbage Salter Name Role Phone Franklin Squires MD Primary Care Provider [phone] Encounter Details Date Type Department Care Team (Late st Contact Info) Description 10/26/2013 Correspondence [facility] Physical Therapy [address] [place] [address] Trudi Raymundo, PT [address] [place] [address] LETTER OF MEDICAL NECESSITY Social History Tobacco [...] Raymundo, PT - 10/26/2013 12:00 AM CST OIDERER HAND documented in this encounter Plan of Treatment Not on file documented as of this encounter Visit Diagnoses Not on filedocumented in this encounter Care Teams Cabbage Salter Relationship Specialty Start Date End Date Franklin Squires MD 100 [facility] [address] PCP - General Family Practice 03/08/16 documented as of this encounter
--- OUTSIDE RECORDS SUMMARY | 2024-09-28 12:47 | XMS_ITS | Encounter Summary ---
Author Organization [facility] Address [address] [address] Care Team Providers Care Regional Trainer Name Role Phone Franklin Squires MD Primary Care Provider Encounter Details Date Type Department Care Team (Late st Contact Info) Description 12/16/2014 Correspondence External to External, [place] [address] MEDICARE PLAN OF CARE RECERT Social History [...] filedocumented in this encounter Care Teams Regional Trainer Relationship Specialty Start Date End Date Franklin Squires MD [address] [place] [address] [facility] [address] PCP - General Family Practice 03/08/16 documented as of this encounter
--- OUTSIDE RECORDS SUMMARY | 2024-09-28 12:47 | XMS_ITS | Encounter Summary ---
Author Organization [facility] Address [address] [address] Care Team Providers Care Weapons System Instrument Mechanic Name Role Phone Franklin Squires MD Primary Care Provider Encounter Details Date Type Department Care Team (Late st Contact Info) Description 03/11/2014 Correspondence [facility] 401 Interventional Pain Management 401 [place] [address] Zelalem Cohen, DO [address] [place] [address] EMPI Social History Tobacco Use Types Packs/Day [...] on filedocumented in this encounter Care Teams Weapons System Instrument Mechanic Relationship Specialty Start Date End Date Franklin Squires MD 100 [facility] [place] [address] PCP - General Family Practice 03/08/16 documented as of this encounter
--- OUTSIDE RECORDS SUMMARY | 2024-09-28 12:47 | XMS_ITS | Encounter Summary ---
Author Organization [facility] Address [address] [address] Care Team Providers Care Environmental Services Aide Name Role Phone Franklin Squires MD Primary Care Provider Encounter Details Date Type Department Care Team (Late st Contact Info) Description 08/20/2014 Outside Hospital External to [facility] Social History Tobacco [...] filedocumented in this encounter Care Teams Environmental Services Aide Relationship Specialty Start Date End Date Franklin Squires MD [address] [place], [place] [address] [address] PCP - General Family Practice 03/08/16 documented as of this encounter
--- OUTSIDE RECORDS SUMMARY | 2024-09-28 12:47 | XMS_ITS | Encounter Summary ---
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
--- OUTSIDE RECORDS SUMMARY | 2024-09-28 12:47 | XMS_ITS | Encounter Summary ---
Author Organization [facility] Address [address], [place] [address] Care Team Providers Care Principal Cloud Architect Name Role Phone Franklin Squires MD Primary Care Provider Encounter Details Date Type Department Care Team (Late st Contact Info) Description 06/07/2015 Correspondence [facility] Radiology [address] [place] [address] Radiology, Provider MRI SAFETY SHEET AND COMPATIBILITY [...] filedocumented in this encounter Care Teams Principal Cloud Architect Relationship Specialty Start Date End Date Franklin Squires MD [address] [place], [place] [address] [address] PCP - General Family Practice 03/08/16 documented as of this encounter
--- OUTSIDE RECORDS SUMMARY | 2024-09-28 12:47 | XMS_ITS | Encounter Summary ---
Author Organization [facility] Address [address], [place] [address] Care Team Providers Care Truck Headlight Assembler Name Role Phone Franklin Squires MD Primary Care Provider Encounter Details Date Type Department Care Team (Late st Contact Info) Description 12/14/2014 Correspondence [facility]ty [facility] 401 Physical Medicine 401 [place] [address] May Randle MD [address] [place] [address] DETAILED PRODUCT DESCRIPTION Social History Tobacco Use [...] filedocumented in this encounter Care Teams Truck Headlight Assembler Relationship Specialty Start Date End Date Franklin Squires MD 100 [facility] [place] [address] PCP - General Family Practice 03/08/16 documented as of this encounter
--- OUTSIDE RECORDS SUMMARY | 2024-09-28 12:47 | XMS_ITS | Encounter Summary ---
Author Organization [facility] Address [address], [place] [address] Care Team Providers Care Residential Supervisor Name Role Phone Franklin Squires MD Primary Care Provider Encounter Details Date Type Department Care Team (Late st Contact Info) Description 01/08/2013 Scanned History External to Transferred Record, Provider [facility] Social History Tobacco Use Types Packs/Day [...] filedocumented in this encounter Care Teams Residential Supervisor Relationship Specialty Start Date End Date Franklin Squires MD 100 [facility] [address] PCP - General Family Practice 03/08/16 documented as of this encounter
--- OUTSIDE RECORDS SUMMARY | 2024-09-28 12:47 | XMS_ITS | Encounter Summary ---
Author Organization [facility] Address [address] [address] Care Team Providers Care Judge Clerk Name Role Phone Franklin Squires MD Primary Care Provider Encounter Details Date Type Department Care Team (Late st Contact Info) Description 09/07/2014 Correspondence [facility] Radiology [address] [place] [address] Radiology, Provider MRI SAFETY SHEET AND COMPATIBILITY [...] on filedocumented in this encounter Care Teams Judge Clerk Relationship Specialty Start Date End Date Franklin Squires MD [address] [place], [place] [address] [address] PCP - General Family Practice 03/08/16 documented as of this encounter
--- OUTSIDE RECORDS SUMMARY | 2024-09-28 12:47 | XMS_ITS | Encounter Summary ---
Author Organization [facility] Address [address] [address] Care Team Providers Care Shrub Planter Name Role Phone Franklin Squires MD Primary Care Provider [phone] Encounter Details Date Type Department Care Team [...] on filedocumented in this encounter Care Teams Shrub Planter Relationship Specialty Start Date End Date Franklin Squires MD 100 [facility] [place] [address] PCP - General Family Practice 03/08/16 documented as of this encounter
--- OUTSIDE RECORDS SUMMARY | 2024-09-28 12:47 | XMS_ITS | Encounter Summary ---
Author Organization [facility] Address [address] [address] Care Team Providers Care Horticulture/Floriculture Teacher Name Role Phone Franklin Squires MD Primary Care Provider [phone] Encounter Details Date Type Department Care Team (Late st Contact Info) Description 05/04/2014 Correspondence [facility]ty [facility] 401 Physical Medicine 401 [facility] [place] [address] May Randle MD [address] [place] [address] LETTER OF MEDICAL NECESSITY FOR A WHEELCHAIR [...] on filedocumented in this encounter Care Teams Horticulture/Floriculture Teacher Relationship Specialty Start Date End Date Franklin Squires MD 100 [facility] [place] [address] PCP - General Family Practice 03/08/16 documented as of this encounter
--- OUTSIDE RECORDS SUMMARY | 2024-09-28 12:47 | XMS_ITS | Encounter Summary ---
Author Organization [facility] Address [address] [address] Care Team Providers Care Sanitary Plumber Name Role Phone Franklin Squires MD Primary [...] on filedocumented in this encounter Care Teams Sanitary Plumber Relationship Specialty Start Date End Date Franklin Squires MD 100 [facility] [address] PCP - General Family Practice 03/08/16 documented as of this encounter
== END 2024-09-28 12:44 | disposition home or self-care (01) ==
LOC: WOUND 12:44
PROVIDERS: PCP Family Medicine; Visit Provider Nurse Practitioner Family
DX: M86.68 Other chronic osteomyelitis, other site (principal); L89.324 Pressure ulcer of left buttock, stage 4; G82.50 Quadriplegia, unspecified; Z99.3 Dependence on wheelchair
CPT/HCPCS: 11042

== ENCOUNTER 2024-10-05 12:41 | Outpatient (CLI) | payer MEDICARE, OTHER, SELFPAY ==
--- OUTSIDE RECORDS SUMMARY | 2024-10-05 12:44 | XMS_ITS | Encounter Summary ---
Author Organization [facility] Address [address], [place] [address] Care Team Providers Care Cisco Engineer Name Role Phone Franklin Squires MD Primary Care Provider [phone] Encounter Details Date Type Department Care Team (Latest Contact Info) Description 12/11/2017 Correspondence Physiatry/Physical Medicine at [facility] 295 [facility] [place] [address] May Randle MD [address] [place] [address] [employer] Social History Tobacco Use [...] on filedocumented in this encounter Care Teams Cisco Engineer Relationship Specialty Start Date End Date Franklin Squires MD [address] [place] [address] [place] [address] PCP - General Family Practice 03/08/16 documented as of this encounter
--- OUTSIDE RECORDS SUMMARY | 2024-10-05 12:44 | XMS_ITS | Encounter Summary ---
Author Organization [facility] Address [address], [place] [address] Care Team Providers Care Inhalation Therapy Aide Name Role Phone Franklin Squires MD Primary Care Provider [phone] Encounter Details Date Type Department Care Team [...] on filedocumented in this encounter Care Teams Inhalation Therapy Aide Relationship Specialty Start Date End Date Franklin Squires MD [address] [facility] [address] PCP - General Family Practice 03/08/16 documented as of this encounter
--- OUTSIDE RECORDS SUMMARY | 2024-10-05 12:44 | XMS_ITS | Clinical Summary ---
Author Organization [facility] Address [address] [place] [address] Care Team Providers Care Cephalometric Tracer Name Role Phone Franklin Squires MD Primary Care Provider [phone] Source Comments You are receiving this document [...] for each transition of care or referral. [employer] Allergies Active Allergy Reactions Criticality Noted Date [...] Comments Blood Pressure 120/63 01/18/2022 12:59 PM SPORTS COMMENTATOR Pulse 87 01/18/2022 12:59 PM SPORTS COMMENTATOR Temperature 36.3 C (97.4 F) 01/18/2022 12:59 PM SPORTS COMMENTATOR Respiratory Rate 16 05/24/2016 4:27 PM CDT [...] Medicare Annual Wellness Visit 1945 Diabetes: HGBA1C 01/26/2015 07/29/2014 Zoster/Shingles (2 of 3) 01/11/2016 11/16/2015, [...] this topic Medical Devices Implanted Type Area Nuclear Engineering Technician Device Identifier Shelf Expiration Date Model / Serial / Lot [id number] 4ml Tisseel Explanted:([place] ntity not on file) BIOLOGIC N/A: NECK Lynne Fenwall 09/10/2011 [id number] / [id number] / [id number] Description:posterior Cath Intrathecal Indura - [id number] Implanted:Qty: 1 on 05/09/[address] [facility] DEVICE Right: LUMBAR SPINE iSECUREtrac 01/18/2012 8709 / N/A / [id number] Cath Intrathecal Indura - [id number] Implanted:Qty: 1 on 05/29/[address] [facility] DEVICE AlpmPura 8709 / / Scr Indira Conic 7.3x80 - [id number] Implanted:Qty: 1 on 03/13/[address] [facility] DEVICE Right: FEMUR DISTAL [employer] 0 / NONE / NONE Plt Lcp Cndl Rt 4.5x170 6h - [id number] Implanted:Qty: 1 on 03/13/[address] [facility] DEVICE Right: FEMUR DISTAL [employer] 222.656 / NONE / NONE Description:6 hole 170mm rig ht 4.5mm lcp condylar plate Scr Didier Ss Sftp 4.5x40 - [id number] Implanted:Qty: 1 on 03/13/[address] [facility] DEVICE Left: FEMUR DISTAL [employer] 214.840 / NONE / NONE Scr Didier Ss Sftp 4.5x50 - [id number] Implanted:Qty: 1 on 03/13/[address] [facility] DEVICE Left: FEMUR DISTAL [employer] 214.850 / NONE / NONE Scr Indira Lk 5.0x80 - [id number] Implanted:Qty: 2 on 03/13/[address] [facility] DEVICE Left: FEMUR DISTAL [employer] 02.205.08 0 / NONE / NONE Scr Indira Lk 5.0x85 - [id number] Implanted:Qty: 2 on 03/13/[address] [facility] DEVICE Left: FEMUR DISTAL [employer] 02.205.08 5 / NONE / NONE Scr Lk Sftp T25 5.0x50 - [id number] Implanted:Qty: 1 on 03/13/[address] [facility] DEVICE Left: FEMUR DISTAL [employer] 212.219 / NONE / NONE Scr Lk Sftp T25 5.0x60 - [id number] Implanted:Qty: 1 on 03/13/[address] [facility] DEVICE Left: FEMUR DISTAL [employer] 212.221 / NONE / NONE Scr Indira Conic 7.3x85 - [id number] Implanted:Qty: 1 on 03/13/[address] [facility] DEVICE Left: FEMUR DISTAL [employer] 02.207.28 5 / NONE / NONE Plt Lcp Cndl Lt 4.5x170 6h - [id number] Implanted:Qty: 1 on 03/13/[address] [facility] DEVICE Left: FEMUR DISTAL [employer] 222.657 / NONE / NONE Description:6 hole 170mmleng th left 4.5mm lcp condylar plate. Scr Didier Sftp 3.5x60 F-Thrd - [id number] Implanted:Qty: 1 on 03/13/[address] [facility] DEVICE Left: TIBIA PROXIMAL [employer] 204.860 / NONE / NONE Scr Star Lk Sftp 3.5x32 - [id number] Implanted:Qty: 1 on 03/13/[address] [facility] DEVICE Left: TIBIA PROXIMAL [employer] 212.112 / NONE / NONE Scr Star Lk Sftp 3.5x55 - [id number] Implanted:Qty: 2 on 03/13/[address] [facility] DEVICE Left: TIBIA PROXIMAL [employer] [place] 212.123 / NONE / NONE Scr Star Lk Sftp 3.5x60 - [id number] Implanted:Qty: 2 on 03/13/[address] [facility] DEVICE Left: TIBIA PROXIMAL [employer] [place] 212.124 / NONE / NONE Plt Lcp M/Prox Lt 3.5x94 4h - [id number] Implanted:Qty: 1 on 03/13/[address] [facility] DEVICE Left: TIBIA PROXIMAL [employer] [place] 239.955 / NONE / NONE Scr Didier Ss Sftp 4.5x36 - [id number] Implanted:Qty: 1 on 03/13/[address] [facility] DEVICE Right: FEMUR DISTAL [employer] 214.836 / NONE / NONE Scr Didier Ss Sftp 4.5x44 - [id number] Implanted:Qty: 1 on 03/13/[address] [facility] DEVICE Right: FEMUR DISTAL [employer] 214.844 / NONE / NONE Scr Indira Lk 5.0x75 - [id number] Implanted:Qty: 1 on 03/13/[address] [facility] DEVICE Right: FEMUR DISTAL [employer] [place] 02.205.07 5 / NONE / NONE Scr Indira Lk 5.0x85 - [id number] Implanted:Qty: 2 on 03/13/[address] [facility] DEVICE Right: FEMUR DISTAL [employer] [place] 02.205.08 5 / NONE / NONE Scr Lk Sftp T25 5.0x44 - [id number] Implanted:Qty: 1 on 03/13/[address] [facility] DEVICE Right: FEMUR DISTAL [employer] [place] 212.216 / NONE / NONE Scr Lk Sftp T25 5.0x65 - [id number] Implanted:Qty: 1 on 03/13/[address] [facility] DEVICE Right: FEMUR DISTAL [employer] 212.222 / NONE / NONE Plt Lp T Ti Str 4h - [id number] Implanted:Qty: 3 on 07/28/2014 by Cooper Shelley MD at [facility] DEVICE Right: SKULL [employer] [place] 421.504 / / Scr Matrix Sfdr 4mm - [id number] Implanted:Qty: 6 on 07/28/2014 by Cooper Shelley MD at [facility] DEVICE Right: SKULL [employer] [place] 04.503.10 4.01 / / Lead Linear 3-4 8 Contact 50cm - [id number] Implanted:Qty: 1 on 03/08/2016 by Zelalem Cohen DO at [facility] DEVICE N/A: OTHER-SEE DESCRIPTION [facility] 09/10/2017 [id number] 2500 / / [id number] Description:LUMBAR Lead Linear 3-4 8 Contact 50cm - [id number] Implanted:Qty: 1 on 03/08/2016 by Zelalem Cohen DO at [facility] DEVICE N/A: OTHER-SEE DESCRIPTION [facility] 09/10/2017 [id number] 2500 / / [id number] Description:LUMBAR Lead Linear 3-4 8 Contact 50cm - [id number] Implanted:Qty: 1 on 03/08/2016 by Zelalem Cohen DO at [facility] DEVICE N/A: OTHER-SEE DESCRIPTION [facility] 09/10/2017 [id number] 2500 / / [id number] Description:LUMBAR Lead Linear 3-4 8 Contact 50cm - [id number] Implanted:Qty: 1 on 03/08/2016 by Zelalem Cohen DO at [facility] DEVICE N/A: OTHER-SEE DESCRIPTION [facility] 09/10/2017 [id number] 2500 / / [id number] Description:LUMBAR Lead Linear 3-4 8 Contact 50cm - [id number] Implanted:Qty: 1 on 05/24/2016 by Zelalem Cohen DO at [facility] DEVICE N/A: SPINE LUMBAR POSTERIOR [facility] 01/31/2018 [id number] 2500 / [id number] / Lead Linear 3-4 8 Contact 50cm - [id number] Implanted:Qty: 1 on 05/24/2016 by Zelalem Cohen DO at [facility] DEVICE N/A: SPINE LUMBAR POSTERIOR [facility] 04/26/2018 [id number] 2500 / [id number] / Lead Linear 3-4 8 Contact 50cm - [id number] Implanted:Qty: 1 on 05/24/2016 by Zelalem Cohen DO at [facility] DEVICE N/A: SPINE LUMBAR POSTERIOR [facility] 04/26/2018 [id number] 2500 / [id number] / Lead Linear 3-4 8 Contact 50cm - [id number] Implanted:Qty: 1 on 05/24/2016 by Zelalem Cohen DO at [facility] DEVICE N/A: SPINE LUMBAR POSTERIOR [facility] 04/26/2018 [id number] 2500 / [id number] / Generator Pulse Spectra - [id number] Implanted:Qty: 1 on 05/24/2016 by Zelalem Cohen DO at [facility] DEVICE N/A: SPINE LUMBAR POSTERIOR [facility] 05/08/2018 [id number] 20 / [id number] / [id number] [place] [employer] - [id number] Implanted:Qty: 1 on 05/24/2016 by Zelalem Cohen DO at [facility] DEVICE N/A: SPINE LUMBAR POSTERIOR [facility] 05/02/2018 [id number] 60 / / [id number] [place] [employer] - [id number] Implanted:Qty: 1 on 05/24/2016 by Zelalem Cohen DO at 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 HGB A1C Routine 07/29/2014 3:19 AM CDT from Last 3 Months or Most Recently Relevant to Health Maintenance Results * CREATININE/GFR, WB POC (01/06/2016 12:04 PM SPORTS COMMENTATOR) [facility] Whole Blood 0.9 0.66 - 1.25 mg/dl [facility] GFR, Estimated >60 >60 ml/min/1.7 3m2 [facility] GFR, Est., If Black >60 >60 ml/min/1.7 3m2 [facility] 01/06/2016 12:0 4 PM SPORTS COMMENTATOR 01/06/2016 12:21 PM SPORTS COMMENTATOR Trae Blair MD LAB_1 [facility] [phone] * (ABNORMAL) HGB A1C (07/29/2014 3:19 AM CDT) Hgb A1c 6.4(H) 4.3 - 6.1 % [facility] Comment: The usual A1C goal for people with diabetes, age 18-75, is <8.0%. Physicians may recommend a higher or lower goal for specific individuals. 07/29/2014 3:19 AM CDT 07/29/2014 3:22 AM CDT Narrative [facility] - 07/29/2014 12:53 PM CDT Performed at [facility], [address] [place] [id number] [place] Wei PA-C LAB_[address] [address] from Last 3 Months or Most Recently [...] 5:44 PM 07/28/2014 6:50 PM Care Teams Cephalometric Tracer Relationship Specialty Start Date End Date Franklin Squires MD [address] [facility] [place] [address] PCP - General Family Practice 03/08/16
--- OUTSIDE RECORDS SUMMARY | 2024-10-05 12:44 | XMS_ITS | Encounter Summary ---
Author Organization [facility] Address [address] [address] Care Team Providers Care Pharmacy Tech Customer Service Name Role Phone Franklin Squires MD Primary Care Provider [phone] Encounter Details Date Type Department Care Team (Late st Contact Info) Description 01/06/2016 Correspondence [facility] Radiology [address] [place] [id number] Radiology, Provider MRI SAFETY SHEET AND COMPATIBILITY [...] filedocumented in this encounter Care Teams Pharmacy Tech Customer Service Relationship Specialty Start Date End Date Franklin Squires MD [address] [place], [place] [address] [address] PCP - General Family Practice 03/08/16 documented as of this encounter
--- OUTSIDE RECORDS SUMMARY | 2024-10-05 12:44 | XMS_ITS | Continuity of Care Document ---
Author Name [facility] Organization [facility] Care Team Providers Care Manuscript Editor Name Role Phone [facility] Unavailable Unavailable Problems Combined list of problems from 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 It does not include entries that were removed or entered in error. Problem Status Onset Date Problem Type Date of Resolution Comments Source Abnormal liver function Active Condition [facility] Anemia ([facility] 215271692) Active Condition [facility] Anxiety ([facility] 20422365) Active Condition [facility] Autonomic dysreflexia Active Condition [facility] Chronic Pain Syndrome ([facility] 910420933) Active Condition [facility] Colostomy present Active Condition [facility] Constipation ([facility] 83846512) Active Condition [facility] Continuous opioid dependence Active Condition [facility] COPD - Chronic Obstructive Pulmonary Disease ([facility] 21818854) Active Condition [facility] Dementia Active Condition [facility] Depression ([facility] 66127415) Active Condition [facility] Diabetes Mellitus Type 2 (SCT 21281775) Active Condition [facility] Ependymoma of spinal cord Active Condition [facility] Hearing Loss ([facility] 63910014) Active Condition [facility] History of Deep Vein Thrombosis ([facility]CT 112808931) Active Condition [facility] History of pressure injury Active Condition [facility] HTN - Hypertension (SCT 18716277) Active Condition [facility] Hyperlipidemia ([facility] 11298579) Active Condition [facility] Hyponatremia Active Condition [facility] Long-term current use of anticoagulant Active Condition [facility] Neurogenic Bladder ([facility] 060039023) Active Condition [facility] Neurogenic bowel Active Condition [facility] Osteoporosis ([facility] 55491653) Active Condition [facility] Paraplegia Active Condition [facility] Spasticity Active Condition [facility] Suprapubic urinary catheter in situ Active Condition [facility] Supraventricular tachycardia Active Condition [facility] Tinnitus ([facility] 39817825) Active Condition [facility] Vitamin D Deficiency ([facility] 6232650) Active Condition [facility] Diagnosis: ICD-10-CM Z73.6 Limitation of activities due to disability Active Diagnosis [facility] Diagnosis: ICD-10-CM G82.20 Paraplegia, unspecified Active Diagnosis [facility] Medications Combined list of outpatient medications from Department of Defense and [facility] Affairs facilities.Medications provided include 1) outpatient medications from the last 15 months, and 2) patient-reported medications. Medication Details Route Status Patient Instructions Prescription Expires Prescription Number Last Dispense Date Ordering Provider Order Date Order Qty Source ACETAMINOPH EN 500MG TAB TAKE TWO TABLETS BY MOUTH THREE TIMES A DAY NEEDED ORAL ACTIVE Jagdish BARRETT N 2022 [facility] AMLODIPINE BESYLATE (AMLODIPINE BESYLATE), 5 MG, TABLET, ORAL, [employer] 1000 ea. BOTTLE Active [id number] 4 2023 90 Pharmac y [facility] Trans[facility] t[facility] Service [facility]ilit y AMLODIPINE BESYLATE (amlodipine besylate), 5 MG, TABLET, ORAL, [employer], 1000 ea. BOTTLE Active [id number] 4 2023 90 Pharmac y Data Transac tion Service Facilit y AMLODIPINE BESYLATE 2.5MG TAB TAKE TWO TABLETS BY MOUTH EVERY MORNING ORAL ACTIVE Jagdish BARRETT 2022 [facility] AMOX TR-POTASSIU M CLAVULANATE (AMOXICILLI N/POTASSIUM CLAV), 875-125 MG, TABLET, ORAL, [employer], 20 ea. BOTTLE Active [id number] 2022 14 Pharmac y Data Transac tion Service Facilit y AMOXICILLIN -CLAVULANAT E POTASS (amoxicilli n/potassium clavulanate ), 875-125 MG, TABLET, ORAL, Davia,, 20 ea. BOTTLE Active [id number] 2023 20 Pharmac y Data Transac tion Service Facilit y AMOXICILLIN -CLAVULANAT E POTASS (amoxicilli n/potassium clavulanate ), 875-125 MG, TABLET, ORAL, [employer] [facility],, 20 ea. BOTTLE Active [id number] 2023 56 Pharmac y Data Transac tion Service Facilit y ARIPIPRAZOL E (aripiprazo le), 2 MG, TABLET, ORAL, [employer], 500 ea. BOTTLE Active [id number] 2023 180 Pharmac y Data Transac tion Service Facilit y ARIPIPRAZOL E (aripiprazo le), 2 MG, TABLET, ORAL, [employer], 500 ea. BOTTLE Active [id number] 2023 180 Pharmac y Data Transac tion Service Facilit y ARIPIPRAZOL E TAB TAKE 2MG BY MOUTH TWICE A DAY ORAL ACTIVE Jey HANSON TAZEvelyn Clemente 2021 [facility] ATIVAN (LORAZEPAM) , 0.5 MG, TABLET, ORAL, VALEANT, 100 ea. BOTTLE Active [id number] 2023 120 Pharmac y Data Transac tion Service Facilit y ATORVASTATI N CA 80MG TAB TAKE ONE-HALF TABLET BY MOUTH EVERY DAY ORAL ACTIVE Jey HANSON Bryn 2021 [facility] ATORVASTATI N CALCIUM (atorvastat in calcium), 40 MG, TABLET, ORAL, BIOCON PHARMA I, 1000 ea. BOTTLE Active [id number] 2023 90 Pharmac y Data Transac tion Service Facilit y ATORVASTATI N CALCIUM (atorvastat in calcium), 40 MG, TABLET, ORAL, BI[employer] PHARMA I, 1000 ea. BOTTLE Active [id number] 2023 90 Pharmac y Data Transac tion Service Facilit y BACLOFEN 20MG TAB TAKE TWO TABLETS BY MOUTH THREE TIMES A DAY ORAL ACTIVE Jagdish BARRETT 2022 [facility] BUPROPION HCL 150MG 12HR TAB,SA TAKE ONE TABLET BY MOUTH TWICE A DAY ORAL ACTIVE Jye HANSON Bryn 2021 [facility] BUPROPION HCL SR (bupropion HCl), 150 MG, TAB SR 12H, ORAL, PAVEL PHARMACEU, 60 ea. BOTTLE Active [id number] 2023 180 Pharmac y Data Transac tion Service Facilit y BUPROPION HCL SR (bupropion HCl), 150 MG, TAB SR 12H, ORAL, PAVEL PHARMACEU, 60 ea. BOTTLE Active [id number] 2023 180 Pharmac y Data Transac [...] ORAL, A[employer]OB[employer]ARM, 50 ea. BOTTLE Active [id number] 2023 70 Pharmac y Data Transac tion Service Facilit y DONEPEZIL HCL (DONEPEZIL HCL), 5 MG, TABLET, ORAL, [employer] 1000 ea. BOTTLE Active [id number] 2023 90 Pharmac y Data Transac tion Service Facilit y DONEPEZIL HCL (DONEPEZIL HCL), 5 MG, TABLET, ORAL, [employer] 1000 ea. BOTTLE Cancele d [id number] : 2023 0 Pharmac y Data Transac tion Service Facilit y DONEPEZIL HCL (DONEPEZIL HCL), 5 MG, TABLET, ORAL, [employer] 1000 ea. BOTTLE Active [id number] 2023 90 Pharmac y Data Transac tion Service Facilit y DONEPEZIL HCL 10MG TAB TAKE ONE-HALF TABLET BY MOUTH EVERY DAY ORAL ACTIVE Jey HANSON Bryn 2021 [facility] DULOXETINE HCL (duloxetine HCl), 60 MG, CAPSULE DR, ORAL, [employer] 1000 ea. BOTTLE Active [id number] 2023 180 Pharmac y Data Transac tion Service Facilit y DULOXETINE HCL (duloxetine HCl), 60 MG, CAPSULE DR, ORAL, [employer] 1000 ea. BOTTLE Active [id number] 2023 180 Pharmac y Data Transac tion Service Facilit y DULOXETINE HCL 30MG CAP,EC TAKE 2 CAPSULES BY MOUTH TWICE A DAY ORAL ACTIVE GRANDJey PRADHAN M 2021 [facility] FAMOTIDINE (famotidine ), 20 MG, TABLET, ORAL, [employer] 1000 ea. BOTTLE Active [id number] 2023 180 Pharmac y Data Transac tion Service Facilit y FAMOTIDINE 20MG TAB TAKE ONE TABLET BY MOUTH TWICE A DAY ORAL ACTIVE GRANDIA,C ONALAINAE M 2021 [facility] FUROSEMIDE (furosemide ), 40 MG, TABLET, ORAL, [employer], 1000 ea. BOTTLE Active [id number] 2023 180 Pharmac y Data Transac tion Service Facilit y FUROSEMIDE 40MG TAB TAKE ONE TABLET BY MOUTH TWICE A DAY ORAL ACTIVE MARGIE,C SB M 2021 [facility] GABAPENTIN (gabapentin ), 400 MG, CAPSULE, ORAL, [employer] 500 ea. BOTTLE Active [id number] 2023 270 Pharmac y Data Transac tion Service Facilit y GABAPENTIN (gabapentin ), 400 MG, CAPSULE, ORAL, [employer]ARMAC, 500 ea. BOTTLE Active [id number] 2023 270 Pharmac y Data Transac tion Service Facilit y GABAPENTIN (gabapentin ), 400 MG, CAPSULE, ORAL, [employer], 500 ea. BOTTLE Cancele d [id number] : 2023 0 Pharmac y Data Transac tion Service Facilit y GABAPENTIN 400MG CAP TAKE 1 CAPSULE BY MOUTH THREE TIMES A DAY ORAL ACTIVE GRANDIAJeyE M 2021 [facility] LORAZEPAM (lorazepam) , 0.5 MG, TABLET, ORAL, [employer], 500 ea. BOTTLE Active [id number] 2023 120 Pharmac y Data Transac tion Service Facilit y LORAZEPAM (lorazepam) , 0.5 MG, TABLET, ORAL, LEADING [employer]ARMA, 1000 ea. BOTTLE Active [id number] 2023 120 Pharmac y Data Transac tion Service Facilit y LORAZEPAM (lorazepam) , 0.5 MG, TABLET, ORAL, [employer]ARMA, 1000 ea. BOTTLE Active [id number] 2023 120 Pharmac y Data Transac tion Service Facilit y LORAZEPAM (lorazepam) , 0.5 MG, TABLET, ORAL, [employer]AR[employer], 1000 ea. BOTTLE Active [id number] 2023 120 Pharmac y Data Transac tion Service Facilit y LORAZEPAM (lorazepam) , 0.5 MG, TABLET, ORAL, [employer]MA, 500 ea. BOTTLE Active [id number] 2023 120 Pharmac y Data Transac tion Service Facilit y LORAZEPAM 0.5MG TAB TAKE ONE TABLET BY MOUTH THREE TIMES A DAY AND TAKE TWO TABLETS BY MOUTH AT BEDTIME ORAL ACTIVE Jagdish BARRETT 2022 [facility] MILK OF MAGNESIA TAKE 30ML BY MOUTH EVERY DAY NEEDED ORAL ACTIVE GRANDIA,C TAZE M 2021 [facility] MULTIVITAMI NS CAP/TAB TAKE ONE TABLET BY MOUTH EVERY DAY ORAL ACTIVE GRANDIA,C SB M 2021 [facility] NALOXONE HCL 4MG/SPRAY SOLN,SPRAY, NASAL SPRAY 1 DOSE IN ONE NOSTRIL DIRECTED PRN NASAL ACTIVE Jagdish BARRETT N 2022 [facility] OXYCODONE HCL (OXYCODONE HCL), 10 MG, TABLET, ORAL, [employer] 100 ea. BOTTLE Active [id number] 2023 120 Pharmac y Data Transac tion Service Facilit y OXYCODONE HCL (OXYCODONE HCL), 10 MG, TABLET, ORAL, [employer] 100 ea. BOTTLE Active [id number] 2023 120 Pharmac y Data Transac tion Service Facilit y OXYCODONE HCL (OXYCODONE HCL), 10 MG, TABLET, ORAL, [employer] 100 ea. BOTTLE Active [id number] 2023 120 Pharmac y Data Transac tion Service Facilit y OXYCODONE HCL (OXYCODONE HCL), 10 MG, TABLET, ORAL, [employer] 100 ea. BOTTLE Active [id number] 2023 120 Pharmac y Data Transac tion Service Facilit y OXYCODONE HCL (OXYCODONE HCL), 10 MG, TABLET, ORAL, [employer] 100 ea. BOTTLE Active [id number] 2023 120 Pharmac y Data Transac tion Service Facilit y OXYCODONE HCL (OXYCODONE HCL), 10 MG, TABLET, ORAL, [employer] 100 ea. BOTTLE Active [id number] 2023 120 Pharmac y Data Transac tion Service Facilit y OXYCODONE HCL (OXYCODONE HCL), 10 MG, TABLET, ORAL, [employer] 100 ea. BOTTLE Active [id number] 2022 120 Pharmac y Data Transac tion Service Facilit y OXYCODONE HCL 5MG TAB TAKE TWO TABLETS BY MOUTH FOUR TIMES A DAY ORAL ACTIVE Jagdish BARRETT 2022 [facility] POTASSIUM CHLORIDE (potassium chloride), 10 MEQ, TAB ER PRT, ORAL, [employer], 100 ea. BOTTLE Active [id number] 2023 180 Pharmac y Data Transac tion Service Facilit y POTASSIUM CHLORIDE (potassium chloride), 10 MEQ, TAB ER PRT, ORAL, [employer], 100 ea. BOTTLE Active [id number] 2023 180 Pharmac y Data Transac tion Service Facilit y POTASSIUM CHLORIDE (potassium chloride), 20 MEQ, TAB ER PRT, ORAL, [employer], 100 ea. BOTTLE Active [id number] 2023 90 Pharmac y Data Transac tion Service Facilit y POTASSIUM CHLORIDE 20MEQ TAB,SA (DISPERSIBL E) TAKE ONE TABLET BY MOUTH TWICE A DAY ORAL ACTIVE Jey HANSON 2021 [facility] SANTYL (collagenas e Clostridium histolyticu m), 250 UNIT/G, OINT. (G), TOPICAL, WHITLOCK&N/UNI LUIS, 30 g TUBE Cancele d [id number] : 2023 0 Pharmac y Data Transac tion Service Facilit y WARFARIN SODIUM (warfarin sodium), 5 MG, TABLET, ORAL, [employer] 1000 ea. BOTTLE Cancele d [id number] : 2022 0 Pharmac y Data Transac tion Service Facilit y WARFARIN SODIUM (WARFARIN SODIUM), 5 MG, TABLET, ORAL, [employer], 1000 ea. BOTTLE Active [id number] 2023 25 Pharmac y Data Transac tion Service Facilit y WARFARIN SODIUM (WARFARIN SODIUM), 5 MG, TABLET, ORAL, [employer], 1000 ea. BOTTLE Active [id number] 2023 12 Pharmac y Data Transac tion Service Facilit y WARFARIN SODIUM (WARFARIN SODIUM), 5 MG, TABLET, ORAL, [employer], 1000 ea. BOTTLE Active [id number] 2023 40 Pharmac y Data Transac tion Service Facilit y WARFARIN SODIUM (WARFARIN SODIUM), 5 MG, TABLET, ORAL, [employer] [place], 1000 ea. BOTTLE Cancele d [id number] : 2022 0 Pharmac y Data Transac tion Service Facilit y WARFARIN SODIUM (warfarin sodium), 7.5 MG, TABLET, ORAL, [employer] [place], 100 ea. BOTTLE Active [id number] 2023 51 Pharmac y Data Transac tion Service Facilit y WARFARIN SODIUM (warfarin sodium), 7.5 MG, TABLET, ORAL, [employer] [place], 100 ea. BOTTLE Active [id number] 2023 78 Pharmac y Data Transac tion Service Facilit y WARFARIN TAB TAKE 5MG BY MOUTH SUN/THUR S AND TAKE 7.5MG BY MOUTH ALL OTHER DAYS ORAL ACTIVE Jagdish BARRETT 2022 [facility] Allergies, Adverse Reactions, Alerts Combined list of allergies from Department [facility] and [facility] facilities. It does not include entries that were removed or entered in error. Substance Category Reaction Severity Reaction type Status Date Reported Comments Source AMOXICILLIN Propensity to adverse reactions to drug (finding) Eruption [facility] METOLAZONE Propensity to adverse reactions to drug (finding) Itching active 2 [facility] MORPHINE Propensity to adverse reactions to drug (finding) Delirium active 2 [facility] PIPERACILLIN Propensity to adverse reactions to drug (finding) Eruption active 2 [facility] SULFA DRUGS Propensity to adverse reactions to drug (finding) Eruption active 2 [facility] TAZOBACTAM SODIUM Propensity to adverse reactions to drug (finding) Eruption active 2 [facility] Immunizations Combined list of available immunizations from the Department of [facility] and [facility] facilities. Immunization Series Date Given Administered By Site Reaction Lot Number CVX Code Drug Hash Slinger Status Comments Source COVID-19 (Wikidot), MRNA, LNP-S, BIVALENT, PF, 30 MCG/0.3 ML DOSE 2021 300 complet ed [facility] INFLUENZA, ADJUVANTED, QUADRIVALENT, PF 2021 205 complet ed [facility] INFLUENZA, UNSPECIFIED FORMULATION 2021 88 complet ed Teague's recall [facility] TD (ADULT), 5 LF TETANUS TOXOID, PRESERVATIVE FREE, ADSORBED 2021 113 complet ed [facility] INFLUENZA, ADJUVANTED, QUADRIVALENT, PF 2020 205 complet ed [facility] INFLUENZA, UNSPECIFIED FORMULATION 2020 88 complet ed [facility] COVID-19 (Wikidot), MRNA, LNP-S, PF, 30 MCG/0.3 ML DOSE 3 2020 208 complet ed [facility] COVID-19 (PFIZER), MRNA, LNP-S, PF, 30 MCG/0.3 ML DOSE 2 2020 208 complet ed [facility] COVID-19 (Wikidot), MRNA, LNP-S, PF, 30 MCG/0.3 ML DOSE 1 2020 208 complet ed [facility] INFLUENZA, ADJUVANTED, QUADRIVALENT, PF 2019 205 complet ed [facility] INFLUENZA, ADJUVANTED, TRIVALENT, PF 2018 168 complet ed [facility] INFLUENZA, ADJUVANTED, TRIVALENT, PF 2017 168 complet ed [facility] INFLUENZA, HIGH-DOSE, TRIVALENT, PF 2016 135 complet ed [facility] INFLUENZA, ADJUVANTED, TRIVALENT, PF 2016 168 complet ed [facility] INFLUENZA, HIGH-DOSE, TRIVALENT, PF 2015 135 complet ed [facility] ZOSTER LIVE 2015 121 complet ed [facility] PNEUMOCOCCAL CONJUGATE PCV 13 2014 133 complet ed [facility] INFLUENZA, HIGH-DOSE, TRIVALENT, PF 2014 135 complet ed [facility] INFLUENZA, HIGH-DOSE, TRIVALENT, PF 2013 135 complet ed [facility] INFLUENZA, UNSPECIFIED FORMULATION 2013 88 complet ed [facility] INFLUENZA, SPLIT VIRUS, TRIVALENT, PRESERVATIVE 2012 141 complet ed [facility] ZOSTER LIVE 2012 121 complet ed [facility] INFLUENZA, SPLIT VIRUS, TRIVALENT, PRESERVATIVE 2011 141 complet ed [facility] INFLUENZA, SPLIT VIRUS, TRIVALENT, PF 2010 140 complet ed [facility] PNEUMOCOCCAL POLYSACCHARID E PPV23 2010 33 complet ed [facility] TDAP 2010 115 complet ed [facility] INFLUENZA, SPLIT VIRUS, TRIVALENT, PRESERVATIVE 2009 141 complet ed [facility] NOVEL INFLUENZA-H1N 1-09, ALL FORMULATIONS 2009 128 complet ed [facility] INFLUENZA, SPLIT VIRUS, TRIVALENT, PF 2008 140 complet ed [facility] PNEUMOCOCCAL POLYSACCHARID E PPV23 2008 33 complet ed [facility] INFLUENZA, SPLIT VIRUS, TRIVALENT, PRESERVATIVE 2008 141 complet ed [facility] INFLUENZA, SPLIT VIRUS, TRIVALENT, PRESERVATIVE 2007 141 complet ed [facility] INFLUENZA, SPLIT VIRUS, TRIVALENT, PRESERVATIVE 2005 141 complet ed [facility] INFLUENZA, SPLIT VIRUS, TRIVALENT, PRESERVATIVE 2004 141 complet ed [facility] PNEUMOCOCCAL POLYSACCHARID E PPV23 2004 33 complet ed [facility] INFLUENZA, SPLIT VIRUS, TRIVALENT, PRESERVATIVE 2003 141 complet ed [facility] Results Combined list of recent chemistry, [...] 05, 2023 03:10 PM Reporting Lab: [facility] [address] Performing Lab: [facility] [address] [facility] CYSTATIN C WITH EGFR CYSTATIN C AND GLOMERULAR FILTRATION RATE BY CYSTATIN C-BASED FORMULA PANEL - SERUM OR PLASMA 53 60 02/13 L Specimen Type: PLASMA No comment entered. Ordering Provider: ANKUSH BOWMAN Report Released Date/Time: Feb 05, 2023 03:10 PM Reporting Lab: [facility] [address] Performing Lab: [facility] [address] [facility] BASIC METABOLI C PANEL+MG CREATININE [MASS/VOLU ME] IN SERUM OR PLASMA 0.7 mg/dL 0.7 - 1.2 02/13 Specimen Type: PLASMA No comment entered. Ordering Provider: ANKUSH BOWMAN Report Released Date/Time: Feb 05, 2023 03:10 PM Reporting Lab: [facility] [address] Performing Lab: [facility] [address] [place] [facility] BASIC METABOLI C PANEL+MG UREA NITROGEN [MASS/VOLU ME] IN SERUM OR PLASMA 15 mg/dL 8 - 26 02/13 Specimen Type: PLASMA No comment entered. Ordering Provider: ANKUSH BOWMAN Report Released Date/Time: Feb 05, 2023 03:10 PM Reporting Lab: [facility] [address] Performing Lab: [facility] [address] [place] [facility] BASIC METABOLI C PANEL+MG GLUCOSE [MASS/VOLU ME] IN SERUM OR PLASMA 140 mg/dL 70 - 100 02/13 H Specimen Type: PLASMA No comment entered. Ordering Provider: ANKUSH BOWMAN Report Released Date/Time: Feb 05, 2023 03:10 PM Reporting Lab: [facility] [address] Performing Lab: [facility] [address] [place] [facility] BASIC METABOLI C PANEL+MG SODIUM [MOLES/VOL UME] IN SERUM OR PLASMA 135 mmol/L 136 - 145 02/13 L Specimen Type: PLASMA No comment entered. Ordering Provider: ANKUSH BOWMAN Report Released Date/Time: Feb 05, 2023 03:10 PM Reporting Lab: [facility] [address] Performing Lab: [facility] [address] [place] [facility] BASIC METABOLI C PANEL+MG POTASSIUM [MOLES/VOL UME] IN SERUM OR PLASMA 4.0 mmol/L 3.5 - 5.1 02/13 Specimen Type: PLASMA No comment entered. Ordering Provider: ANKUSH BOWMAN Report Released Date/Time: Feb 05, 2023 03:10 PM Reporting Lab: [facility] [address] Performing Lab: [facility] [address] [place] [facility] BASIC METABOLI C PANEL+MG CHLORIDE [MOLES/VOL UME] IN SERUM OR PLASMA 99 mmol/L 98 - 107 02/13 Specimen Type: PLASMA No comment entered. Ordering Provider: ANKUSH BOWMAN Report Released Date/Time: Feb 05, 2023 03:10 PM Reporting Lab: [facility] [address] Performing Lab: [facility] [address] [place] [facility] BASIC METABOLI C PANEL+MG CARBON DIOXIDE, TOTAL [MOLES/VOL UME] IN SERUM OR PLASMA 29 mmol/L 22 - 29 02/13 Specimen Type: PLASMA No comment entered. Ordering Provider: ANKUSH BOWMAN Report Released Date/Time: Feb 05, 2023 03:10 PM Reporting Lab: [facility] [address] Performing Lab: [facility] [address] [place] [facility] BASIC METABOLI C PANEL+MG CALCIUM [MASS/VOLU ME] IN SERUM OR PLASMA 9.2 mg/dL 8.4 - 10.2 02/13 Specimen Type: PLASMA No comment entered. Ordering Provider: ANKUSH BOWMAN Report Released Date/Time: Feb 05, 2023 03:10 PM Reporting Lab: [facility] [address] Performing Lab: [facility] [address] [place] [facility] BASIC METABOLI C PANEL+MG MAGNESIUM [MASS/VOLU ME] IN SERUM OR PLASMA 2.0 mg/dL 1.6 - 2.6 02/13 Specimen Type: PLASMA No comment entered. Ordering Provider: ANKUSH BOWMAN Report Released Date/Time: Feb 05, 2023 03:10 PM Reporting Lab: [facility] [address] Performing Lab: [facility] [address] [place] [facility] BASIC METABOLI C PANEL+MG ANION GAP IN SERUM OR PLASMA 7 mmol/L 5 - 15 02/13 Specimen Type: PLASMA No comment entered. Ordering Provider: ANKUSH BOWMAN Report Released Date/Time: Feb 05, 2023 03:10 PM Reporting Lab: [facility] [address] Performing Lab: [facility] [address] [place] [facility] BASIC METABOLI C PANEL+MG GLOMERULAR FILTRATION RATE/1.73 SQ M.PREDICTE D [VOLUME RATE/AREA] IN SERUM, PLASMA OR BLOOD BY CREATININE -BASED FORMULA (CKD-EPI) >90 60 02/13 Specimen Type: PLASMA No comment entered. Ordering Provider: ANKUSH BOWMAN Report Released Date/Time: Feb 05, 2023 03:10 PM Reporting Lab: [facility] [address] Performing Lab: [facility] [address] [place] [facility] URINALYS IS COLOR OF URINE YELLOW 10/08 Specimen Type: URINE No comment entered. Ordering Provider: ANKUSH BOWMAN Report Released Date/Time: Sep 24, 2022 01:55 PM Reporting Lab: [facility] [address] Performing Lab: [facility] [address] [place] [facility] URINALYS IS SPECIFIC GRAVITY OF URINE 1.023 1.003 - 1.035 10/08 Specimen Type: URINE No comment entered. Ordering Provider: ANKUSH BOWMAN Report Released Date/Time: Sep 24, 2022 01:55 PM Reporting Lab: [facility] [address] Performing Lab: [facility] [address] [place] [facility] URINALYS IS BILIRUBIN. TOTAL [PRESENCE] IN URINE BY TEST STRIP NEGATIVE 10/08 Specimen Type: URINE No comment entered. Ordering Provider: ANKUSH BOWMAN Report Released Date/Time: Sep 24, 2022 01:55 PM Reporting Lab: [facility] [address] Performing Lab: [facility] [address] [place] [facility] URINALYS IS KETONES [MASS/VOLU ME] IN URINE BY TEST STRIP NEGATIVE 10/08 Specimen Type: URINE No comment entered. Ordering Provider: ANKUSH BOWMAN Report Released Date/Time: Sep 24, 2022 01:55 PM Reporting Lab: [facility] [address] Performing Lab: [facility] [address] [place] [facility] URINALYS IS GLUCOSE [MASS/VOLU ME] IN URINE BY TEST STRIP NEGATIVE mg/dL <30 - 30 10/08 Specimen Type: URINE No comment entered. Ordering Provider: ANKUSH BOWMAN Report Released Date/Time: Sep 24, 2022 01:55 PM Reporting Lab: [facility] [id number] Performing Lab: [facility] [address] [place] [facility] URINALYS IS PROTEIN [MASS/VOLU ME] IN URINE BY TEST STRIP 30 mg/dL <20 - 20 10/08 Specimen Type: URINE No comment entered. Ordering Provider: ANKUSH BOWMAN Report Released Date/Time: Sep 24, 2022 01:55 PM Reporting Lab: [facility] [id number] Performing Lab: [facility] [address] [place] [facility] URINALYS IS PH OF URINE BY TEST STRIP 7.5 5.0 - 8.0 10/08 Specimen Type: URINE No comment entered. Ordering Provider: ANKUSH BOWMAN Report Released Date/Time: Sep 24, 2022 01:55 PM Reporting Lab: [facility] [id number] Performing Lab: [facility] [id number] [place] [facility] URINALYS IS LEUKOCYTES [#/AREA] IN URINE SEDIMENT BY MICROSCOPY HIGH POWER FIELD >180/[HP F] 0 - 7 10/08 H Specimen Type: URINE No comment entered. Ordering Provider: ANKUSH BOWMAN Report Released Date/Time: Sep 24, 2022 01:55 PM Reporting Lab: [facility] [address] Performing Lab: [facility] [address] [place] [facility] URINALYS IS BACTERIA [PRESENCE] IN URINE SEDIMENT BY LIGHT MICROSCOPY MANY 10/08 Specimen Type: URINE No comment entered. Ordering Provider: ANKUSH BOWMAN Report Released Date/Time: Sep 24, 2022 01:55 PM Reporting Lab: [facility] [address] Performing Lab: [facility] [address] [place] [facility] URINALYS IS ERYTHROCYT ES [#/AREA] IN URINE SEDIMENT BY MICROSCOPY HIGH POWER FIELD 33 /[HPF] 0 - 3 10/08 H Specimen Type: URINE No comment entered. Ordering Provider: ANKUSH BOWMAN Report Released Date/Time: Sep 24, 2022 01:55 PM Reporting Lab: [facility] [address] Performing Lab: [facility] [address] [place] [facility] URINALYS IS APPEARANCE OF URINE EX.TURBI D 10/08 Specimen Type: URINE No comment entered. Ordering Provider: ANKUSH BOWMAN Report Released Date/Time: Sep 24, 2022 01:55 PM Reporting Lab: [facility] [address] Performing Lab: [facility] [address] [place] [facility] URINALYS IS EPITHELIAL CELLS.SQUA MOUS [#/AREA] IN URINE SEDIMENT BY MICROSCOPY HIGH POWER FIELD 1 /[HPF] 10/08 Specimen Type: URINE No comment entered. Ordering Provider: ANKUSH BOWMAN Report Released Date/Time: Sep 24, 2022 01:55 PM Reporting Lab: [facility] [address] Performing Lab: [facility] [address] [place] [facility] URINALYS IS HEMOGLOBIN [PRESENCE] IN URINE BY TEST STRIP 1+ 10/08 Specimen Type: URINE No comment entered. Ordering Provider: ANKUSH BOWMAN Report Released Date/Time: Sep 24, 2022 01:55 PM Reporting Lab: [facility] [address] Performing Lab: [facility] [address] [place] [facility] URINALYS IS NITRITE [PRESENCE] IN URINE BY TEST STRIP NEGATIVE 10/08 Specimen Type: URINE No comment entered. Ordering Provider: ANKUSH BOWMAN Report Released Date/Time: Sep 24, 2022 01:55 PM Reporting Lab: [facility] [address] Performing Lab: [facility] [address] [place] [facility] URINALYS IS LEUKOCYTE CLUMPS [#/VOLUME] IN URINE BY AUTOMATED COUNT PRESENT 10/08 Specimen Type: URINE No comment entered. Ordering Provider: ANKUSH BOWMAN Report Released Date/Time: Sep 24, 2022 01:55 PM Reporting Lab: [facility] [address] Performing Lab: [facility] [address] [place] [facility] URINALYS IS LEUKOCYTE ESTERASE [PRESENCE] IN URINE BY TEST STRIP 500 10/08 Specimen Type: URINE No comment entered. Ordering Provider: ANKUSH OBWMAN Report Released Date/Time: Sep 24, 2022 01:55 PM Reporting Lab: [facility] [address] Performing Lab: [facility] [address] [place] [facility] ALBUMIN ALBUMIN [MASS/VOLU ME] IN SERUM OR PLASMA 4.2 g/dL 3.5 - 5.2 10/08 Specimen Type: PLASMA No comment entered. Ordering Provider: ANKUSH BOWMAN Report Released Date/Time: Sep 24, 2022 01:55 PM Reporting Lab: [facility] [address] Performing Lab: [facility] [address] [place] [facility] PRE-ALBU MIN PREALBUMIN [MASS/VOLU ME] IN SERUM OR PLASMA 28.4 mg/dL 14.0 - 45.0 10/08 Specimen Type: SERUM No comment entered. Ordering Provider: ANKUSH BOWMAN Report Released Date/Time: Sep 24, 2022 01:55 PM Reporting Lab: [facility] [address] Performing Lab: [facility] [address] [place] [facility] CBC & DIFF LEUKOCYTES [#/VOLUME] IN BLOOD BY AUTOMATED COUNT 7.32 10*3/uL 4.0 - 11.0 10/08 Specimen Type: BLOOD Comment: Automated Differentia l Performed Ordering Provider: ANKUSH BOWMAN Report Released Date/Time: Sep 24, 2022 01:55 PM Reporting Lab: [facility] [address] Performing Lab: [facility] [address] [place] [facility] CBC & DIFF ERYTHROCYT ES [#/VOLUME] IN BLOOD BY AUTOMATED COUNT 4.80 10*6/uL 4.6 - 6.2 10/08 Specimen Type: BLOOD Comment: Automated Differentia l Performed Ordering Provider: ANKUSH BOWMAN Report Released Date/Time: Sep 24, 2022 01:55 PM Reporting Lab: [facility] [address] Performing Lab: [facility] [address] [place] [facility] CBC & DIFF HEMOGLOBIN [MASS/VOLU ME] IN BLOOD 14.7 g/dL 13.5 - 17.9 10/08 Specimen Type: BLOOD Comment: Automated Differentia l Performed Ordering Provider: ANKUSH BOWMAN Report Released Date/Time: Sep 24, 2022 01:55 PM Reporting Lab: [facility] [address] Performing Lab: [facility] [address] [place] [facility] CBC & DIFF HEMATOCRIT [VOLUME FRACTION] OF BLOOD BY AUTOMATED COUNT 44.2 41 - 54 10/08 Specimen Type: BLOOD Comment: Automated Differentia l Performed Ordering Provider: ANKUSH BOWMAN Report Released Date/Time: Sep 24, 2022 01:55 PM Reporting Lab: [facility] [address] Performing Lab: [facility] [address] [place] [facility] CBC & DIFF MCV [ENTITIC VOLUME] BY AUTOMATED COUNT 92.1 fL 80 - 100 10/08 Specimen Type: BLOOD Comment: Automated Differentia l Performed Ordering Provider: ANKUSH BOWMAN Report Released Date/Time: Sep 24, 2022 01:55 PM Reporting Lab: [facility] [address] Performing Lab: [facility] [address] [place] [facility] CBC & DIFF MCH [ENTITIC MASS] BY AUTOMATED COUNT 30.6 pg 27 - 33 10/08 Specimen Type: BLOOD Comment: Automated Differentia l Performed Ordering Provider: ANKUSH BOWMAN Report Released Date/Time: Sep 24, 2022 01:55 PM Reporting Lab: [facility] [address] Performing Lab: [facility] [address] [place] [facility] CBC & DIFF MCHC [MASS/VOLU ME] BY AUTOMATED COUNT 33.3 g/dL 32.0 - 37.5 10/08 Specimen Type: BLOOD Comment: Automated Differentia l Performed Ordering Provider: ANKUSH BOWMAN Report Released Date/Time: Sep 24, 2022 01:55 PM Reporting Lab: [facility] [address] Performing Lab: [facility] [address] [place] [facility] CBC & DIFF PLATELETS [#/VOLUME] IN BLOOD BY AUTOMATED COUNT 144 10*3/uL 150 - 400 10/08 L Specimen Type: BLOOD Comment: Automated Differentia l Performed Ordering Provider: ANKUSH BOWMAN Report Released Date/Time: Sep 24, 2022 01:55 PM Reporting Lab: [facility] [address] Performing Lab: [facility] [address] [place] [facility] CBC & DIFF PLATELET MEAN VOLUME [ENTITIC VOLUME] IN BLOOD BY AUTOMATED COUNT 10.8 fL 7.4 - 10.4 10/08 H Specimen Type: BLOOD Comment: Automated Differentia l Performed Ordering Provider: ANKUSH BOWMAN Report Released Date/Time: Sep 24, 2022 01:55 PM Reporting Lab: [facility] [address] Performing Lab: [facility] [address] [place] [facility] CBC & DIFF NEUTROPHIL S/100 LEUKOCYTES IN BLOOD BY MANUAL COUNT 55.5 10/08 Specimen Type: BLOOD Comment: Automated Differentia l Performed Ordering Provider: ANKUSH BOWMAN Report Released Date/Time: Sep 24, 2022 01:55 PM Reporting Lab: [facility] [address] Performing Lab: [facility] [address] [place] [facility] CBC & DIFF LYMPHOCYTE S/100 LEUKOCYTES IN BLOOD BY MANUAL COUNT 31.4 10/08 Specimen Type: BLOOD Comment: Automated Differentia l Performed Ordering Provider: ANKUSH BOWMAN Report Released Date/Time: Sep 24, 2022 01:55 PM Reporting Lab: [facility] [address] Performing Lab: [facility] [address] [place] [facility] CBC & DIFF MONOCYTES/ 100 LEUKOCYTES IN BLOOD BY AUTOMATED COUNT 10.2 10/08 Specimen Type: BLOOD Comment: Automated Differentia l Performed Ordering Provider: ANKUSH BOWMAN Report Released Date/Time: Sep 24, 2022 01:55 PM Reporting Lab: [facility] [address] Performing Lab: [facility] [address] [place] [facility] CBC & DIFF EOSINOPHIL S/100 LEUKOCYTES IN BLOOD BY AUTOMATED COUNT 2.2 10/08 Specimen Type: BLOOD Comment: Automated Differentia l Performed Ordering Provider: ANKUSH BOWMAN Report Released Date/Time: Sep 24, 2022 01:55 PM Reporting Lab: [facility] [address] Performing Lab: [facility] [address] [place] [facility] CBC & DIFF BASOPHILS/ 100 LEUKOCYTES IN BLOOD BY MANUAL COUNT 0.4 10/08 Specimen Type: BLOOD Comment: Automated Differentia l Performed Ordering Provider: ANKUSH BOWMAN Report Released Date/Time: Sep 24, 2022 01:55 PM Reporting Lab: [facility] [address] Performing Lab: [facility] [address] [place] [facility] CBC & DIFF ERYTHROCYT E DISTRIBUTI ON WIDTH [RATIO] BY AUTOMATED COUNT 15.9 11.5 - 14.5 10/08 H Specimen Type: BLOOD Comment: Automated Differentia l Performed Ordering Provider: ANKUSH BOWMAN Report Released Date/Time: Sep 24, 2022 01:55 PM Reporting Lab: [facility] [address] Performing Lab: [facility] [address] [place] [facility] CBC & DIFF LYMPHOCYTE S [#/VOLUME] IN BLOOD BY AUTOMATED COUNT 2.30 10*3/uL 1.0 - 4.0 10/08 Specimen Type: BLOOD Comment: Automated Differentia l Performed Ordering Provider: ANKUSH BOWMAN Report Released Date/Time: Sep 24, 2022 01:55 PM Reporting Lab: [facility] [address] Performing Lab: [facility] [address] [place] [facility] CBC & DIFF MONOCYTES [#/VOLUME] IN BLOOD BY AUTOMATED COUNT 0.75 10*3/uL 0.1 - 1.0 10/08 Specimen Type: BLOOD Comment: Automated Differentia l Performed Ordering Provider: ANKUSH BOWMAN Report Released Date/Time: Sep 24, 2022 01:55 PM Reporting Lab: [facility] [address] Performing Lab: [facility] [address] [place] [facility] CBC & DIFF NEUTROPHIL S [#/VOLUME] IN BLOOD BY AUTOMATED COUNT 4.06 10*3/uL 2.0 - 7.7 10/08 Specimen Type: BLOOD Comment: Automated Differentia l Performed Ordering Provider: ANKUSH BOWMAN Report Released Date/Time: Sep 24, 2022 01:55 PM Reporting Lab: [facility] [address] Performing Lab: [facility] [address] [place] [facility] CBC & DIFF EOSINOPHIL S [#/VOLUME] IN BLOOD BY AUTOMATED COUNT 0.16 10*3/uL 0 - 0.5 10/08 Specimen Type: BLOOD Comment: Automated Differentia l Performed Ordering Provider: ANKUSH BOWMAN Report Released Date/Time: Sep 24, 2022 01:55 PM Reporting Lab: [facility] [address] Performing Lab: [facility] [address] [place] [facility] CBC & DIFF BASOPHILS [#/VOLUME] IN BLOOD BY AUTOMATED COUNT 0.03 10*3/uL 0 - 0.2 10/08 Specimen Type: BLOOD Comment: Automated Differentia l Performed Ordering Provider: ANKUSH BOWMAN Report Released Date/Time: Sep 24, 2022 01:55 PM Reporting Lab: [facility] [address] Performing Lab: [facility] [address] [place] [facility] CBC & DIFF IG(META,MY MALACHI,PRO) 0.3 10/08 Specimen Type: BLOOD Comment: Automated Differentia l Performed Ordering Provider: ANKUSH BOWMAN Report Released Date/Time: Sep 24, 2022 01:55 PM Reporting Lab: [facility] [address] Performing Lab: [facility] [address] [place] [facility] CBC & DIFF IMMATURE GRANULOCYT ES [PRESENCE] IN BLOOD BY AUTOMATED COUNT 0.02 10*3/uL 0 - 0.1 10/08 Specimen Type: BLOOD Comment: Automated Differentia l Performed Ordering Provider: ANKUSH BOWMAN Report Released Date/Time: Sep 24, 2022 01:55 PM Reporting Lab: [facility] [address] Performing Lab: [facility] [address] [place] [facility] COMPREHE NSIVE METABOLI C PANEL+MG CREATININE [MASS/VOLU ME] IN SERUM OR PLASMA 0.7 mg/dL 0.7 - 1.2 10/08 Specimen Type: PLASMA No comment entered. Ordering Provider: ANKUSH BOWMAN Report Released Date/Time: Sep 24, 2022 01:55 PM Reporting Lab: [facility] [address] Performing Lab: [place] [address] [facility] COMPREHE NSIVE METABOLI C PANEL+MG UREA NITROGEN [MASS/VOLU ME] IN SERUM OR PLASMA 16 mg/dL 8 - 26 10/08 Specimen Type: PLASMA No comment entered. Ordering Provider: ANKUSH BOWMAN Report Released Date/Time: Sep 24, 2022 01:55 PM Reporting Lab: [facility] [address] Performing Lab: [facility] [address] [facility] COMPREHE NSIVE METABOLI C PANEL+MG GLUCOSE [MASS/VOLU ME] IN SERUM OR PLASMA 94 mg/dL 70 - 100 10/08 Specimen Type: PLASMA No comment entered. Ordering Provider: ANKUSH BOWMAN Report Released Date/Time: Sep 24, 2022 01:55 PM Reporting Lab: [facility] [address] Performing Lab: [facility] [address] [place] [facility] COMPREHE NSIVE METABOLI C PANEL+MG SODIUM [MOLES/VOL UME] IN SERUM OR PLASMA 138 mmol/L 136 - 145 10/08 Specimen Type: PLASMA No comment entered. Ordering Provider: ANKUSH BOWMAN Report Released Date/Time: Sep 24, 2022 01:55 PM Reporting Lab: [facility] [address] Performing Lab: [facility] [address] [place] [facility] COMPREHE NSIVE METABOLI C PANEL+MG POTASSIUM [MOLES/VOL UME] IN SERUM OR PLASMA 3.9 mmol/L 3.5 - 5.1 10/08 Specimen Type: PLASMA No comment entered. Ordering Provider: ANKUSH BOWMAN Report Released Date/Time: Sep 24, 2022 01:55 PM Reporting Lab: [facility] [address] Performing Lab: [facility] [address] [place] [facility] COMPREHE NSIVE METABOLI C PANEL+MG CHLORIDE [MOLES/VOL UME] IN SERUM OR PLASMA 101 mmol/L 98 - 107 10/08 Specimen Type: PLASMA No comment entered. Ordering Provider: ANKUSH BOWMAN Report Released Date/Time: Sep 24, 2022 01:55 PM Reporting Lab: [facility] [address] Performing Lab: [facility] [address] [place] [facility] COMPREHE NSIVE METABOLI C PANEL+MG CARBON DIOXIDE, TOTAL [MOLES/VOL UME] IN SERUM OR PLASMA 28 mmol/L 22 - 29 10/08 Specimen Type: PLASMA No comment entered. Ordering Provider: ANKUSH BOWMAN Report Released Date/Time: Sep 24, 2022 01:55 PM Reporting Lab: [facility] [address] Performing Lab: [facility] [address] [place] [facility] COMPREHE NSIVE METABOLI C PANEL+MG CALCIUM [MASS/VOLU ME] IN SERUM OR PLASMA 9.7 mg/dL 8.4 - 10.2 10/08 Specimen Type: PLASMA No comment entered. Ordering Provider: ANKUSH BOWMAN Report Released Date/Time: Sep 24, 2022 01:55 PM Reporting Lab: [facility] [address] Performing Lab: [facility] [address] [place] [facility] COMPREHE NSIVE METABOLI C PANEL+MG PROTEIN [MASS/VOLU ME] IN SERUM OR PLASMA 7.6 g/dL 6.0 - 8.3 10/08 Specimen Type: PLASMA No comment entered. Ordering Provider: ANKUSH BOWMAN Report Released Date/Time: Sep 24, 2022 01:55 PM Reporting Lab: [facility] [address] Performing Lab: [facility] [address] [place] [facility] COMPREHE NSIVE METABOLI C PANEL+MG ALBUMIN [MASS/VOLU ME] IN SERUM OR PLASMA 4.2 g/dL 3.5 - 5.2 10/08 Specimen Type: PLASMA No comment entered. Ordering Provider: ANKUSH BOWMAN Report Released Date/Time: Sep 24, 2022 01:55 PM Reporting Lab: [facility] [address] Performing Lab: [facility] [address] [facility] COMPREHE NSIVE METABOLI C PANEL+MG BILIRUBIN. TOTAL [MASS/VOLU ME] IN SERUM OR PLASMA 0.6 mg/dL 0.2 - 1.2 10/08 Specimen Type: PLASMA No comment entered. Ordering Provider: ANKUSH BOWMAN Report Released Date/Time: Sep 24, 2022 01:55 PM Reporting Lab: [facility] [address] Performing Lab: [facility] [address] [facility] COMPREHE NSIVE METABOLI C PANEL+MG MAGNESIUM [MASS/VOLU ME] IN SERUM OR PLASMA 2.1 mg/dL 1.6 - 2.6 10/08 Specimen Type: PLASMA No comment entered. Ordering Provider: ANKUSH BOWMAN Report Released Date/Time: Sep 24, 2022 01:55 PM Reporting Lab: [facility] [address] Performing Lab: [facility] [address] [place] [facility] COMPREHE NSIVE METABOLI C PANEL+MG ANION GAP IN SERUM OR PLASMA 9 mmol/L 5 - 15 10/08 Specimen Type: PLASMA No comment entered. Ordering Provider: ANKUSH BOWMAN Report Released Date/Time: Sep 24, 2022 01:55 PM Reporting Lab: [facility] [address] Performing Lab: [facility] [address] [place] [facility] COMPREHE NSIVE METABOLI C PANEL+MG ALKALINE PHOSPHATAS E [ENZYMATIC ACTIVITY/V OLUME] IN SERUM OR PLASMA 96 U/L 40 - 150 10/08 Specimen Type: PLASMA No comment entered. Ordering Provider: ANKUSH BOWMAN Report Released Date/Time: Sep 24, 2022 01:55 PM Reporting Lab: [facility] [address] Performing Lab: [facility] [address] [place] [facility] COMPREHE NSIVE METABOLI C PANEL+MG ALANINE AMINOTRANS FERASE [ENZYMATIC ACTIVITY/V OLUME] IN SERUM OR PLASMA 29 U/L <55 - 55 10/08 Specimen Type: PLASMA No comment entered. Ordering Provider: ANKUSH BOWMAN Report Released Date/Time: Sep 24, 2022 01:55 PM Reporting Lab: [facility] [address] Performing Lab: [facility] [address] [place] [facility] COMPREHE NSIVE METABOLI C PANEL+MG ASPARTATE AMINOTRANS FERASE [ENZYMATIC ACTIVITY/V OLUME] IN SERUM OR PLASMA 22 U/L <34 - 34 10/08 Specimen Type: PLASMA No comment entered. Ordering Provider: ANKUSH BOWMAN Report Released Date/Time: Sep 24, 2022 01:55 PM Reporting Lab: [facility] [address] Performing Lab: [facility] [address] [place] [facility] COMPREHE NSIVE METABOLI C PANEL+MG GLOMERULAR FILTRATION RATE/1.73 SQ M.PREDICTE D [VOLUME RATE/AREA] IN SERUM, PLASMA OR BLOOD BY CREATININE -BASED FORMULA (CKD-EPI) >90 60 10/08 Specimen Type: PLASMA No comment entered. Ordering Provider: ANKUSH BOWMAN Report Released Date/Time: Sep 24, 2022 01:55 PM Reporting Lab: [facility] [address] Performing Lab: [facility] [address] [place] [facility] CYSTATIN C WITH EGFR CYSTATIN C [MASS/VOLU ME] IN SERUM OR PLASMA 1.38 mg/L 0.51 - 1.05 10/08 H Specimen Type: PLASMA No comment entered. Ordering Provider: ANKUSH BOWMAN Report Released Date/Time: Sep 24, 2022 01:55 PM Reporting Lab: [facility] [address] Performing Lab: [facility] [address] [place] [facility] CYSTATIN C WITH EGFR CYSTATIN C AND GLOMERULAR FILTRATION RATE BY CYSTATIN-B ASED FORMULA PANEL - SERUM OR PLASMA 48 60 10/08 L Specimen Type: PLASMA No comment entered. Ordering Provider: ANKUSH BOWMAN Report Released Date/Time: Sep 24, 2022 01:55 PM Reporting Lab: [facility] [address] Performing Lab: [facility] [address] [place] [facility] VIT D 25-OH,TO ZAMZAM 25-HYDROXY VITAMIN D3 [MASS/VOLU ME] IN SERUM OR PLASMA 54 ng/mL 12 - 50 10/08 H Specimen Type: SERUM No comment entered. Ordering Provider: ANKUSH BOWMAN Report Released Date/Time: Sep 24, 2022 01:55 PM Reporting Lab: [facility] [address] Performing Lab: [facility] [address] [place] [facility] Encounters Combined list of: 1) Encounters from Department of Veterans Affairs facilities going back up to thelast 18 months. 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 Location Location Details Encounter Type Encounter Number Reason For Visit Attending Provider ADM Date DC Date Status Disposition Source [place] [facility] PRO PHONE CALL 11-20 MIN [id number] Diagnos is: ICD-10- CM Z73.6 Limitat ion of activit ies due to disabil ity<br/ > BOUSANGELI GRACIA AN P 04[facility] Outpatient Encounter [id number] [facility] [place] [facility] [place] [facility] Outpatient Encounter [id number] 05/24 [facility] OFF/OP EST MAY X REQ PHY/QHP [id number] Diagnos is: ICD-10- CM G82.20 Paraple mary kay, unspeci fied
VIOLA YOON NDA 05/28 [facility] WHEELCHAIR MNGMENT TRAINING [id number] Diagnos is: ICD-10- CM Z73.6 Limitat ion of activit ies due to disabil ity<br/ > BOUSLOG,RY AN P 06/10 [facility] Outpatient Encounter [id number] 10/28 [facility] [place] [facility] Outpatient Encounter [id number] 11/20 [facility] [place] [facility] Outpatient Encounter [id number] 05/12 [facility] [place] [facility] Outpatient Encounter [id number] 07/23 [facility] [place] [facility] Outpatient Encounter [id number] DEE ANDERS 07/28 [facility] [place] [facility] Outpatient Encounter [id number] 09/23 [facility] Social History Combined list of available smoking, tobacco, and other social history from 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 Social History Type Response Date Comment Sour e Tobacco smoking status [facility] NEVER USED 05/28/20 22 SADAF TREVINO [facility] This section is an empty social history section. [facility] Plan of Care List of future care activities from Department of 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 Additional future care activities may be listed in the Assessment and Plan section. Date/Time Care Activity Care Activity Detail Facili ty 09/24/2024 Consult Order PROSTHETICS REQU EST Cons Batch [facility] Advance Directives List of completed, amended, or rescinded Advance Directives on record at Department of [facility] facilities. An actual copy of the Directive is not included. Date Advance Directive Provider Source 02/05/2023 ADVANCE DIRECTIVE DISCUSSION GUSTAVO ABAD [facility]
--- OUTSIDE RECORDS SUMMARY | 2024-10-05 12:44 | XMS_ITS | Encounter Summary ---
Author Organization [facility] [address], [place] [address] Care Team Providers Care Regulatory Law Specialist Name Role Phone Franklin Squires MD Primary Care Provider [phone] Encounter Details Date Type Department Care Team (Late st Contact Info) Description 07/08/2015 Correspondence [facility] Physical Therapy [address] [place] [address] Trudi Raymundo, PT [address] [place] [address] ADDENDUM FOR LETTER OF MEDICAL NECESSITY Social [...] on filedocumented in this encounter Care Teams Regulatory Law Specialist Relationship Specialty Start Date End Date Franklin Squires MD [address] [facility] [id number] P[facility] - General Family Practice 03/08/16 documented as of this encounter
--- OUTSIDE RECORDS SUMMARY | 2024-10-05 12:44 | XMS_ITS | Encounter Summary ---
Author Organization [facility] Address [address], [place] [address] Care Team Providers Care Office Equipment Technician Name Role Phone Franklin Squires MD Primary Care Provider Encounter Details Date Type Department Care Team (Late st Contact Info) Description 02/09/2016 Correspondence [facility] 401 NeuroSurgery 401 [facility]. [place], [place] [id number] Jodi Aguila PA-C [address] [place] [id number] PATIENT LIFT PRESCRIPTION Social History Tobacco Use [...] on filedocumented in this encounter Care Teams Office Equipment Technician Relationship Specialty Start Date End Date Franklin Squires MD [address] [facility] [place] [id number] PCP - General Family Practice 03/08/16 documented as of this encounter
--- OUTSIDE RECORDS SUMMARY | 2024-10-05 12:44 | XMS_ITS | Encounter Summary ---
Author Organization [facility] Address [address] [address] Care Team Providers Care Digital Service Engineer Name Role Phone Franklin Squires MD Primary Care Provider Encounter Details Date Type Department Care Team (Late st Contact Info) Description 12/16/2014 Correspondence External to External, [place] [address] MEDICARE PLAN OF CARE RECERT Social History [...] filedocumented in this encounter Care Teams Digital Service Engineer Relationship Specialty Start Date End Date Franklin Squires MD [address] [place] [address] [facility] [place] [address] PCP - General Family Practice 03/08/16 documented as of this encounter
--- OUTSIDE RECORDS SUMMARY | 2024-10-05 12:44 | XMS_ITS ---
Author [facility] Address [address], [place] [address] Care Team Providers Care Manufacturing Systems Engineer Name Role Phone Franklin Squires MD [...] treatments are documented for this patient in [facility]. Treatments may have been administered in another system. Resolved Problems Problem Noted Date Diagnosed Date Resolved Date Gait abnormality 01/17/2012 02/09/2015 Back pain 01/17/2012 02/09/2015 Paraplegia 04/04/2011 02/09/2015 Osteoporosis 03/06/2011 02/09/2015 Urinary tract infection 12/24/200603/11
--- OUTSIDE RECORDS SUMMARY | 2024-10-05 12:44 | XMS_ITS | Encounter Summary ---
Author Organization [facility] Address [address], [place] [address] Care Team Providers Care It Network Engineer Name Role Phone Franklin Squires MD Primary Care Provider Encounter Details Date Type Department Care Team (Late st Contact Info) Description 06/07/2015 Correspondence [facility] Radiology [address] [place] [phone] Radiology, Provider MRI SAFETY SHEET AND COMPATIBILITY [...] filedocumented in this encounter Care Teams It Network Engineer Relationship Specialty Start Date End Date Franklin Squires MD [address] [place], [place] [address] [address] PCP - General Family Practice 03/08/16 documented as of this encounter
--- OUTSIDE RECORDS SUMMARY | 2024-10-05 12:44 | XMS_ITS | Encounter Summary ---
Author Organization [facility] Address [address] [address] Care Team Providers Care Cell Manager Name Role Phone Franklin Squires MD Primary Care Provider [phone] Encounter Details Date Type Department Care Team (Late st Contact Info) Description 12/14/2014 Correspondence [facility] 401 Physical Medicine 401 [place] [address] May Randle MD [address] [place] [address] DETAILED PRODUCT DESCRIPTION Social History Tobacco Use [...] on filedocumented in this encounter Care Teams Cell Manager Relationship Specialty Start Date End Date Franklin Squires MD 100 [facility] [place] [address] PCP - General Family Practice 03/08/16 documented as of this encounter
--- OUTSIDE RECORDS SUMMARY | 2024-10-05 12:44 | XMS_ITS | Encounter Summary ---
Author Organization [facility] Address [address], [place] [address] Care Team Providers Care Apartment Leasing Agent Name Role Phone Franklin Squires [...] on filedocumented in this encounter Care Teams Apartment Leasing Agent Relationship Specialty Start Date End Date Franklin Squires MD [address] [facility] [place] [address] PCP - General Family Practice 03/08/16 documented as of this encounter
--- OUTSIDE RECORDS SUMMARY | 2024-10-05 12:44 | XMS_ITS | Encounter Summary ---
Author Organization [facility] Address [address], [place] [address] Care Team Providers Care Director Weights And Measures Name Role Phone Franklin Squires MD Primary Care Provider [phone] Encounter Details Date Type Department Care Team (Late st Contact Info) Description 11/23/2015 Correspondence External to External, [place] [address] LETTER [facility] Social History Tobacco Use Types [...] filedocumented in this encounter Care Teams Director Weights And Measures Relationship Specialty Start Date End Date Franklin Squires MD [address] [place] [address] [place] [address] PCP - General Family Practice 03/08/16 documented as of this encounter
--- OUTSIDE RECORDS SUMMARY | 2024-10-05 12:44 | XMS_ITS | Encounter Summary ---
Author Organization [facility] [address], [place] [address] Care Team Providers Care Vp Talent Management Name Role Phone Franklin Squires MD Primary Care Provider [phone] Encounter Details Date Type Department Care Team (Late st Contact Info) Description 11/10/2014 Correspondence [facility] Physical Therapy [address] [place] [address] Trudi Raymundo, PT [address] [place] [address] LETTER OF MEDICAL NECESSITY Social History Tobacco [...] filedocumented in this encounter Care Teams Vp Talent Management Relationship Specialty Start Date End Date Franklin Squires MD [address] [facility] [place] [address] PCP - General Family Practice 03/08/16 documented as of this encounter
--- OUTSIDE RECORDS SUMMARY | 2024-10-05 12:44 | XMS_ITS | Encounter Summary ---
Author Organization [facility] Address [address] [address] Care Team Providers Care Filler Feeder Name Role Phone Franklin Squires MD Primary Care Provider Encounter Details Date Type Department Care Team (Late st Contact Info) Description 09/07/2014 Correspondence [facility] Radiology [address] [place] [address] Radiology, Provider MRI SAFETY SHEET AND COMPATIBILITY [...] on filedocumented in this encounter Care Teams Filler Feeder Relationship Specialty Start Date End Date Franklin Squires MD [address] [place], [place] [address] [address] PCP - General Family Practice 03/08/16 documented as of this encounter
--- OUTSIDE RECORDS SUMMARY | 2024-10-05 12:44 | XMS_ITS | Clinical Summary ---
Author Organization [facility] Address [place], [place] [address] Care Team Providers Care Railway Yard Assistant Name Role Phone Zelalem Cohen MD Unavailable [phone] May Randle) Unavailable Franklin Squires MD Primary Care Provider Fred Craft Unavailable [phone] Diane Charles MD Unavailable [phone] Julia Ware RN Unavailable [phone] Allergies Active Allergy Reactions Criticality Noted Date [...] bedIndications:Non-heal ing surgical wound, subsequent encounter Drive Planspot 8 inch low loss mattress and 1/2 rails. Semi-electric bed. Length of need 6 weeks. Bed pharmacy intern:no 1 unit 018 Active acetaminophen (TYLENOL EXTRA [...] 60mm, Cut-to-Fit 01/16 - 2 11/18. Item #[id number]. 1 Each 11 021 Active ascorbic acid, [...] A DAY 180 Tablet 3 024 Active warfarin (COUMADIN) 7.5 [...] MOUTH AT BEDTIME 90 Tablet 2 Active oxyCODONE 10 mg tabletIndications:Chron ic pain syndrome TAKE ONE TABLET BY MOUTH EVERY 6 HOURS 120 Tablet 024 Active atorvastatin (LIPITOR) 40 mg tabletIndications:Pure hypercholesterolemia Take 1 Tablet (40 mg) by mouth at bedtime. 90 Tablet 2 023 2023 Discontinued oxyCODONE 10 mg tabletIndications:Chron ic pain syndrome TAKE ONE TABLET BY MOUTH EVERY 6 HOURS 120 Tablet 024 2023 Discontinued Active Problems Problem Noted [...] 09/27/2008 Assessment & Plan (01/19/2012 9:22 AM BANDER AND CELLOPHANER HELPER MACHINE): Orthopedics: Dr. Bright PM&R: Dr. May Randle Pain Management: Dr. 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 Pure hypercholesterolemia 12/24/2006 Neurogenic bladder 12/24/2006 Neurogenic bowel 12/24/2006 Hypertension Resolved Problems Problem Noted Date Diagnosed Date Resolved Date Soft tissue infection 10/22/20232023 penitentiary current use of anticoagulant 06/20/2023 01/08/2024 Cellulitis [...] 04/16/2007 10/01/2007 Overview (04/16/2007): S/P IVC Filter salvage determiner (current) use of anticoagulants 02/19/2007 09/27/2008 Depressive disorder, not elsewhere classified 02/14/20 07 01/15/2018 Abnormality of gait 12/24/2006 09/27/20 08 Urinary tract infection, site not specified 12/24/2006 01/15/2018 BENIGN ESSENTIAL HYPERTENSION 12/24/2006 04/17/2016 Overview (12/24/2006): borderline Necrotizing fasciitis 2018 Type 2 diabetes mellitus Encounters Date Type Department Care Team Description 10/02/2024 2:00 PM BANDER AND CELLOPHANER HELPER MACHINE Nurse/Clinic Staff Only [facility] [address] [place] [address] Nurse/Clinic Staff Only (Suprapubic Cath change ) 10/02/2024 Travel 10/02/2024 Anticoagulation (warfarin) [facility] [address] [place] [address] [place] [address] [facility] Anticoagulation (Acelis) 09/30/2024 Refill [facility] [address] [place] [address] Franklin Squires MD Refill Request (Oxycodone) 09/25/2024 3:19 PM BANDER AND CELLOPHANER HELPER MACHINE - 09/25/2024 11:59 PM BANDER AND CELLOPHANER HELPER MACHINE Hospital Encounter [facility] [address] [place] [address] Nighat Fierro MD 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); Chronic osteomyelitis of symphysis pubis (HC) 09/25/2024 Anticoagulation (warfarin) [facility] [address] [place] [address] , [facility] Anticoagulation (Acelis) 09/25/2024 Travel 09/22/2024 2:30 PM BANDER AND CELLOPHANER HELPER MACHINE - 09/22/2024 11:59 PM BANDER AND CELLOPHANER HELPER MACHINE Hospital Encounter [facility] [address] [place] [address] 09/22/2024 Travel 09/20/2024 Refill [facility] [address] [place] [address] Franklin Squires MD Refill Request (Atorvastatin) 09/18/2024 Anticoagulation (warfarin) [address] [place] [address] 1, [facility] Anticoagulation ( ACELIS) 09/17/2024 11:29 AM BANDER AND CELLOPHANER HELPER MACHINE - 09/17/2024 11:59 PM BANDER AND CELLOPHANER HELPER MACHINE Hospital Encounter [facility] [address] [place] [address] Wound infection (Primary Dx) 09/17/2024 Travel 09/16/[address] [address] Franklin Squires MD Anticoagulation (orders) 09/11/2024 Anticoagulation (warfarin) [address] [address] , [facility] Anticoagulation (Acelis) 09/10/2024 1:56 PM CDT - 09/10/2024 11:59 PM CDT Hospital Encounter [facility] [address] [place] [address] Wound infection (Primary Dx) 09/10/2024 1:15 PM CDT Office Visit [address] [address] Diane Charles MD Consult (Neurogenic bladder) 09/10/2024 Travel 09/07/2024 Hospital/[facility] Telepho ne Encounter [address] [place] [address] Yen Hernandez RN Pre Procedure (PVP) 09/07/[address] [address] Franklin Squires MD Form (Case communication and Plan of Care.) 09/04/2024 Anticoagulation (warfarin) [address] [place] [address] , [facility] Anticoagulation (Acelis) 09/03/2024 1:53 PM CDT - 09/03/2024 11:59 PM CDT Hospital Encounter [facility] [address] [place] [address] Wound infection 09/03/2024 Travel 09/03/[address] [address] , [facility] Refill Request (Warfarin) 09/02/[address] [address] Corrie Gomez, COMMUNITY ENGAGEMENT REPRESENTATIVE Appointment 09/01/[address] [address] Franklin Squires MD Refill Request (Oxycodone) 08/30/[address] [address] Franklin Squires MD Refill Request (Famotidine, Aripiprazole) 08/29/2024 Anticoagulation (warfarin) [address] [address] [place] [address] [facility] Anticoagulation (Acelis) 08/28/[address] [address] Franklin Squires MD Form (Case communication) 08/27/2024 11:25 AM CDT - 08/27/2024 11:59 PM CDT Hospital Encounter [address] [address] Wound infection (Primary Dx) 08/27/2024 Travel 08/25/2024 Hospital/[facility] Telepho ne Encounter [facility] [address] [place] [address] Yen Hernandez RN Pre Procedure (PVP) 08/21/2024 1:00 PM CDT Nurse/Clinic Staff Only [address] [place] [address] Nurse/Clinic Staff Only 08/21/2024 Travel 08/21/2024 Anticoagulation (warfarin) [address] [place] [address] 1, [facility] Anticoagulation (Acelis) 08/20/2024 11:27 AM CDT - 08/20/2024 11:59 PM CDT Hospital Encounter [address] [place] [address] Wound infection (Primary Dx) 08/19/2024 3:00 PM CDT Nurse/Clinic Staff Only [address] [place] [address] Nurse/Clinic Staff Only (Cath Change ) 08/19/[address] [place] [address] Diane Charles MD Appointment 08/19/2024 Travel 08/18/[address] [place] [address] Franklin Squires MD Questions 08/14/2024 Nurse Triage [address] [place] [address] Franklin Squires MD Catheter Problem 08/14/2024 Anticoagulation (warfarin) [address] [place] [address] 1, [facility] Anticoagulation (Acelis) 08/13/2024 11:23 AM CDT - 08/13/2024 11:59 PM CDT Hospital Encounter [address] [place] [address] Wound infection 08/13/2024 Travel 08/13/2024 Hospital/[facility] Telepho ne Encounter [address] [place] [address] Yen Hernandez RN Pre Procedure (PVP) 08/07/2024 Anticoagulation (warfarin) [address] [facility] [place] [address] 1, [facility] Anticoagulation (Acelis) 08/06/2024 11:27 AM CDT - 08/06/2024 11:59 PM CDT Hospital Encounter [address] [place] [address] Wound infection (Primary Dx) 08/06/2024 Travel 08/06/2024 Hospital/[facility] Telepho ne Encounter [address] [place] [address] Yen Hernandez RN Pre Procedure (PVP) 08/04/[address] [address] Franklin Squires MD Form 07/31/2024 Anticoagulation (warfarin) [address] [place] [address] 1, [facility] Anticoagulation (Acelis) 07/30/2024 11:25 AM CDT - 07/30/2024 11:59 PM CDT Hospital Encounter [address] [place] [address] Wound infection (Primary Dx) 07/30/2024 [facility] Telepho ne Encounter [address] [place] [address] Yen Hernandez RN Pre Procedure (PVP) 07/29/2024 1:30 PM CDT Nurse/Clinic Staff Only [address] [place] [address] Nurse/Clinic Staff Only (Suprapubic Cath) 07/29/[address] [address] Franklin Squires MD Refill Request (Oxycodone) 07/29/2024 Travel 07/27/2024 Anticoagulation (warfarin) [address] [address] 1, [facility] Anticoagulation (Acelis) 07/24/2024 Telephone [facility] [address] [place] [address] Franklin Squires MD Anticoagulation (new med) 07/23/2024 8:46 AM CDT - 07/23/2024 2:33 PM CDT Hospital Encounter [facility] [address] [place] [address] Yudith Mcgraw NP Wound infection (Primary Dx) Discharge Disposition: Home Health 07/23/2024 Orders Only [facility] [address] [place] [address] Yudith Mcgraw NP 1 scan: INFUSION CEFEPIME 2 MG 07/23/2024 Travel 07/22/2024 Telephone [facility] [address] [place] [address] Yen Hernandez, RN Appointment 07/22/2024 Telephone [facility] [address] [place] [address] Jennyfer Penny RN 07/15/2024 Telephone [facility] [address] [place] [address] Franklin Squires MD Anticoagulation (Order renewal) 07/15/2024 Anticoagulation (warfarin) [address] [address] 1, [facility] Anticoagulation (Acelis ) 07/14/2024 Telephone [facility] [address] [place] [address] Franklin Squires MD Form (Case Communication- Major drug interactions-( Warfarin) - Home Health Certification and Plan of Care - 07/08/2024-09/05/2024) 07/14/[address] [place] [address] Franklin Squires MD Refill Request (Bupropion) 07/09/2024 Orders Only [facility] Scanner 1 scan: (1-Ord) [facility], CT PELVIS W CON, 07/09/2024 07/08/2024 1:30 PM CDT Nurse/Clinic Staff Only [address] [place] [address] Nurse/Clinic Staff Only (Cath Change ) 07/08/2024 Travel 07/07/[address] [place] [address] Franklin Squires MD Refill Request (Donepezil) from Last 3 Months Immunizations Name Administration Dates Next Due COVID-19 vaccine (iGoOn s.r.l.-Bio NTech 30mcg/0.3mL) 12YO+ BIVALENT PF, MDV 10/22/2022 [...] Care Team (Late st Contact Info) Description 10/22/2024 2:00 PM BANDER AND CELLOPHANER HELPER MACHINE Nurse/Clinic Staff Only [address] [address] 10/30/2024 11:30 AM BANDER AND CELLOPHANER HELPER MACHINE Office Visit [address] [address] Franklin Squires MD [address] [place] [address] 11/12/2024 2:00 PM BANDER AND CELLOPHANER HELPER MACHINE Nurse/Clinic Staff Only [address] [address] Health Maintenance Due Date Last Done Comments [...] Associated Diagnosis Comments HOME MONITOR AC Routine 10/02/2024 12:00 AM BANDER AND CELLOPHANER HELPER MACHINE CT PELVIS W Routine 09/25/2024 3:42 PM BANDER AND CELLOPHANER HELPER MACHINE 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) HOME MONITOR AC Routine 09/25/2024 12:00 AM BANDER AND CELLOPHANER HELPER MACHINE HOME MONITOR AC Routine 09/18/2024 12:00 AM BANDER AND CELLOPHANER HELPER MACHINE CBC WITH AUTO DIFFERENTIAL STAT 09/17/2024 11:43 AM BANDER AND CELLOPHANER HELPER MACHINE CBC WITH AUTO DIFFERENTIAL STAT 09/17/2024 11:43 AM BANDER AND CELLOPHANER HELPER MACHINE SEDIMENTATION RATE STAT 09/17/2024 11 :43 AM BANDER AND CELLOPHANER HELPER MACHINE C-REACTIVE PROTEIN STAT 09/17/2024 11 :43 AM BANDER AND CELLOPHANER HELPER MACHINE HOME MONITOR AC Routine 09/11/2024 12:00 AM [...] AM CDT EXTRA TUBE LAVENDER Today 07/23/2024 1 0:59 AM CDT XR CHEST 1 VIEW PORTABLE JORGE LUIS 07/23/2024 10:04 AM CDT SCAN-OPERATIVE/PROCEDU RE REPORT 07/23/2024 12:00 AM CDT HOME MONITOR AC Routine 07/15/2024 12:00 AM CDT SCAN-CT INTERPRETATION 12:00 AM CDT from Last 3 Months Results * HOME MONITOR AC (10/02/2024 12:00 AM BANDER AND CELLOPHANER HELPER MACHINE) Only the most recent of12 resultswithin the time period is included. PATIENT REPORTED HOME INR 2.5 2.00 - 3.00 ALERE HOME MONITORING 10/02/2024 Franklin Squires MD OTHER ALERE HOME MONITORING [address] [place] [address] * CT PELVIS W (09/25/2024 3:42 PM BANDER AND CELLOPHANER HELPER MACHINE) Anatomical Region Laterality Modality Pelvis, Abdomen, PROSTATE, BLADDER Computed Tomography 09/28/2024 5:17 AM BANDER AND CELLOPHANER HELPER MACHINE Impressions 09/28/2024 5:17 AM BANDER AND CELLOPHANER HELPER MACHINE 1. Left decubitus ulcer fairly similar in [...] AM (Electronically Signed) Narrative 09/28/2024 5:17 AM BANDER AND CELLOPHANER HELPER MACHINE For Patients: As a result of the [...] (Electronically Signed) Nighat Fierro MD CT * (ABNORMAL) SEDIMENTATION RATE (09/17/2024 11:43 AM BANDER AND CELLOPHANER HELPER MACHINE) Only the most recent of2 resultswithin the time period is included. [facility] SEDIMENTATION RATE 33(H) <20 mm/hr 2023 11:54 AM BANDER AND CELLOPHANER HELPER MACHINE [facility] Blood BLOOD SPECIMEN / Unknown Line/Port / Unknown 09/17/2024 11:43 AM BANDER AND CELLOPHANER HELPER MACHINE 09/17/2024 11:46 AM BANDER AND CELLOPHANER HELPER MACHINE Yudith Mcgraw NP HEMATOLOGY [facility] [address] [place] [address] * (ABNORMAL) CBC WITH AUTO DIFFERENTIAL (09/17/2024 11:43 AM BANDER AND CELLOPHANER HELPER MACHINE) Only the most recent of6 resultswithin the time period is included. [facility] WHITE BLOOD COUNT 7.2 4.5 - 11.0 thou/cu mm 09/17/2024 11:49 AM [facility] RED BLOOD COUNT 4.13(L) 4.30 - 5.90 mil/cu mm 09/17/2024 11:49 AM [facility] HEMOGLOBIN 12.4(L) 13.5 - 17.5 g/dL 09/17/2024 11:49 AM [facility] HEMATOCRIT 39.4 37.0 - 53.0 % 09/17/2024 11:49 AM [facility] MCV 95 80 - 100 fL 09/17/2024 11:49 AM [facility] MCH 30.0 26.0 - 34.0 pg 09/17/2024 11:49 AM [facility] MCHC 31.5(L) 32.0 - 36.0 g/dL 09/17/2024 11:49 AM [facility] RDW 14.6 11.5 - 15.5 % 09/17/2024 11:49 AM [facility] PLATELET COUNT 155 140 - 440 thou/cu mm 09/17/2024 11:49 AM [facility] MPV 10.6 6.5 - 11.0 fL 09/17/2024 11:49 AM [facility] % NEUT 60.5 % 09/17/2024 11:49 AM [facility] % LYMPH 27.8 % 09/17/2024 11:49 AM [facility] % MONO 9.6 % 09/17/2024 11:49 AM [facility] % EOS 1.8 % 09/17/2024 11:49 AM [facility] % BASO 0.3 % 09/17/2024 11:49 AM [facility] ABSOLUTE NEUTROPHILS 4.4 1.7 - 7.0 thou/cu mm 09/17/2024 11:49 AM [facility] ABSOLUTE LYMPHOCYTES 2.0 0.9 - 2.9 thou/cu mm 09/17/2024 11:49 AM [facility] ABSOLUTE MONOCYTES 0.7 <0.9 thou/cu mm 09/17/2024 11:49 AM BANDER AND CELLOPHANER HELPER MACHINE [facility] ABSOLUTE EOSINOPHILS 0.1 <0.5 thou/cu mm 09/17/2024 11:49 AM BANDER AND CELLOPHANER HELPER MACHINE [facility] ABSOLUTE BASOPHILS 0.0 <0.3 thou/cu mm 09/17/2024 11:49 AM BANDER AND CELLOPHANER HELPER MACHINE [facility] Blood BLOOD SPECIMEN / Unknown Line/Port / Unknown 09/17/2024 11:43 AM BANDER AND CELLOPHANER HELPER MACHINE 09/17/2024 11:46 AM BANDER AND CELLOPHANER HELPER MACHINE Narrative [facility] - 09/17/2024 11:49 AM BANDER AND CELLOPHANER HELPER MACHINE Picc line Picc line Yudith Mcgraw NP HEMATOLOGY Performing Organization Address City/[facility]/ZIP Co de Phone Number [facility] [address] [place] [address] * (ABNORMAL) C-REACTIVE PROTEIN (09/17/2024 11:43 AM BANDER AND CELLOPHANER HELPER MACHINE) Only the most recent of2 resultswithin the time period is included. C-REACTIVE PROTEIN 1.2(H) <0.5 mg/dL 09/17/2024 12:04 PM BANDER AND CELLOPHANER HELPER MACHINE [facility] Blood BLOOD SPECIMEN / Unknown Line/Port / Unknown 09/17/2024 11:43 AM BANDER AND CELLOPHANER HELPER MACHINE 09/17/2024 11:46 AM BANDER AND CELLOPHANER HELPER MACHINE Yudith Mcgraw NP CHEMISTRY Performing Organization Address City/[facility]/ZIP Co de Phone Number [facility] [address] [place] [address] * (ABNORMAL) BASIC METABOLIC PANEL (09/03/2024 2:00 PM CDT) Only the most recent of4 resultswithin the time period is included. SODIUM 136 136 - 145 mmol/L 09/03/2024 2:50 PM CDT [facility] POTASSIUM 3.9 3.5 - 5.1 mmol/L 09/03/2024 2:50 PM CDT [facility] CHLORIDE 97(L) 98 - 107 mmol/L 09/03/2024 2:[address] [facility] CO2,TOTAL 28 22 - 29 mmol/L 09/03/2024 2:[address] [facility] ANION GAP 11 5 - 18 09/03/2024 2:[address] [facility] GLUCOSE 126(H) 70 - 99 mg/dL 09/03/2024 2:[address] [facility] CALCIUM 9.6 8.8 - 10.2 mg/dL 09/03/2024 2:[address] [facility] BUN 21 8 - 23 mg/dL 09/03/2024 2:[address] [facility] CREATININE 0.69(L) 0.70 - 1.20 mg/dL 09/03/2024 2:[address] [facility] BUN/CREAT RATIO 30(H) 10 - 2:[address] [facility] eGFR >90 >90 mL/min/1.7 3m2 09/03/2024 2:[address] [facility] Comment:As of 2022, eG FR [...] 2:37 PM CDT Yudith Mcgraw NP CHEMISTRY [facility] [address] [place] [address] * EXTRA TUBE LAVENDER (07/23/2024 10:59 AM CDT) Blood BLOOD SPECIMEN / Unknown Extra Tube / Unknown 07/23/2024 10:59 AM CDT 07/23/2024 11:06 AM CDT Doctor Unknown LABORATORY [facility] [address] [place] [address] * EXTRA TUBE BLUE (07/23/2024 10:59 AM CDT) Blood BLOOD SPECIMEN / Unknown Extra Tube / Unknown 07/23/2024 10:59 AM CDT 07/23/2024 11:06 AM CDT Doctor Unknown LABORATORY [facility] [address] [place] [address] * XR CHEST 1 VIEW PORTABLE (07/23/2024 [...] Documents on File Type Date Recorded Patient Music Mixer Expl anation Treatment Guidelines 08/04/2024 Healthcare Directive [...] Code Status Discussion: Reviewed Preferences Care Teams Railway Yard Assistant Relationship Specialty Start Date End Date Franklin Squires MD [address] [place] [address] PCP - General Family Practice 10/18/15 Zelalem Cohen MD Physical Therapist 03/13/12 May Randle Md, MD Physical Medicine and Rehabilitation 03/13/12 Luana, FAUSTINO Krueger [address] [place] [address] Hanger 05/03/17 Diane Charles MD [address] [place] [address] Surgery - Urology 01/17/23 Julia Ware, VALERIE [address] [place] [address] Registered Nurse 07/17/23
--- OUTSIDE RECORDS SUMMARY | 2024-10-05 12:45 | XMS_ITS | Encounter Summary ---
Author Organization [facility] Address [address], [place] [address] Care Team Providers Care Research Worker Kitchen Name Role Phone Franklin Squires MD Primary Care Provider [phone] Encounter Details Date Type Department Care Team (Late st Contact Info) Description 07/23/2013 [facility] [address] [facility] [place] [address] Zelalem Cohen DO [address] [place] [address] [employer] SCRIPT Social History Tobacco Use Types [...] MD - 07/23/2013 12:00 AM CDT E OVERNIGHT MONITOR documented in this encounter Plan of Treatment Not on file documented as of this encounter Visit Diagnoses Not on filedocumented in this encounter Care Teams Research Worker Kitchen Relationship Specialty Start Date End Date Franklin Squires MD [address] [facility] [place] [address] PCP - General Family Practice 03/08/16 documented as of this encounter
--- OUTSIDE RECORDS SUMMARY | 2024-10-05 12:45 | XMS_ITS | Encounter Summary ---
Author Organization [facility] Address [address] [address] Care Team Providers Care Job Interviewer Name Role Phone Franklin Squires MD Primary Care Provider [phone] Encounter Details Date Type Department Care Team [...] filedocumented in this encounter Care Teams Job Interviewer Relationship Specialty Start Date End Date Franklin Squires MD [address] [facility] [place] [address] PCP - General Family Practice 03/08/16 documented as of this encounter
--- OUTSIDE RECORDS SUMMARY | 2024-10-05 12:45 | XMS_ITS | Encounter Summary ---
Author Organization [facility] Address [address], [place] [address] Care Team Providers Care Deck Worker Name Role Phone Franklin Squires MD Primary Care Provider Encounter Details Date Type Department Care Team (Late st Contact Info) Description 08/20/2014 Outside Hospital External to [facility] Social History Tobacco Use Types [...] filedocumented in this encounter Care Teams Deck Worker Relationship Specialty Start Date End Date Franklin Squires MD [address] [place], [place] [address] [address] PCP - General Family Practice 03/08/16 documented as of this encounter
--- OUTSIDE RECORDS SUMMARY | 2024-10-05 12:45 | XMS_ITS | Encounter Summary ---
Author Organization [facility] Address [address] [address] Care Team Providers Care Aircraft Hydraulic Equipment Mechanic Name Role Phone Franklin Squires MD Primary Care Provider Encounter Details Date Type Department Care Team (Late st Contact Info) Description 11/13/2012 Correspondence [facility] Radiology [address] [place] [address] Radiology, Provider MRI SAFETY SHEET AND COMPATIBILITY [...] RADIOLOGY, PROVIDER - 11/13/2012 12:00 AM CST SPORT MANAGER documented in this encounter Plan of Treatment Not on file documented as of this encounter Visit Diagnoses Not on filedocumented in this encounter Care Teams Aircraft Hydraulic Equipment Mechanic Relationship Specialty Start Date End Date Franklin Squires MD 100 [facility] [place] [address] PCP - General Family Practice 03/08/16 documented as of this encounter
--- OUTSIDE RECORDS SUMMARY | 2024-10-05 12:45 | XMS_ITS | Encounter Summary ---
Author Organization [facility] Address [address], [place] [address] Care Team Providers Care Solar Installation Foreman Name Role Phone Franklin Squires MD Primary Care Provider [phone] Encounter Details Date Type Department Care Team (Late st Contact Info) Description 04/20/[address] [address] Radiology, Provider MRI SAFETY SHEET AND COMPATIBILITY [...] filedocumented in this encounter Care Teams Solar Installation Foreman Relationship Specialty Start Date End Date Franklin Squires MD 100 [facility] [place] [address] PCP - General Family Practice 03/08/16 documented as of this encounter
--- OUTSIDE RECORDS SUMMARY | 2024-10-05 12:45 | XMS_ITS | Encounter Summary ---
Author Organization [facility] Address [address] [address] Care Team Providers Care Astronomy Professor Name Role Phone Franklin Squires MD Primary Care Provider Encounter Details Date Type Department Care Team (Late st Contact Info) Description 12/16/2013 Correspondence [facility] Radiology [address] [place] [id number] Radiology, Provider MRI SAFETY SHEET AND COMPATIBILITY [...] Radiology, Provider - 12/16/2013 12:00 AM CST EMIC AFFAIRS SPECIALIST documented in this encounter Plan of Treatment Not on file documented as of this encounter Visit Diagnoses Not on filedocumented in this encounter Care Teams Astronomy Professor Relationship Specialty Start Date End Date Franklin Squires MD 100 [facility] [place] [address] PCP - General Family Practice 03/08/16 documented as of this encounter
--- OUTSIDE RECORDS SUMMARY | 2024-10-05 12:45 | XMS_ITS | Encounter Summary ---
Author Organization [facility] Address [address] [address] Care Team Providers Care Material Assistant Name Role Phone Franklin Squires MD Primary Care Provider Encounter Details Date Type Department Care Team (Late st Contact Info) Description 06/11/2014 Correspondence [facility] 401 Physical Medicine 401 [place] [address] May Randle MD [address] [place] [address] [facility] Social History Tobacco Use Types [...] on filedocumented in this encounter Care Teams Material Assistant Relationship Specialty Start Date End Date Franklin Squires MD 100 [facility] [place] [address] PCP - General Family Practice 03/08/16 documented as of this encounter
--- OUTSIDE RECORDS SUMMARY | 2024-10-05 12:45 | XMS_ITS | Encounter Summary ---
[facility] Organization [facility] Address [address] [address] Care Team Providers Care Television Engineering Teacher Name Role Phone Franklin Squires MD Primary Care Provider Encounter Details Date Type Department Care Team (Late st Contact Info) Description 07/28/2014 Outside Hospital External to External, Provider No address [address] ER VISIT/TRANSFER Social History Tobacco Use [...] filedocumented in this encounter Care Teams Television Engineering Teacher Relationship Specialty Start Date End Date Franklin Squires MD 100 [facility] [place] [address] PCP - General Family Practice 03/08/16 documented as of this encounter
--- OUTSIDE RECORDS SUMMARY | 2024-10-05 12:45 | XMS_ITS | Encounter Summary ---
Author Organization [facility] [address] [address] Care Team Providers Care Inspector Plating Name Role Phone Franklin Squires MD Primary Care Provider [phone] Encounter Details Date Type Department Care Team (Late st Contact Info) Description 10/26/2013 Correspondence [facility] Physical Therapy [address] [place] [address] Trudi Raymundo, PT [address] [place] [address] LETTER OF MEDICAL NECESSITY Social History Tobacco [...] PT - 10/26/2013 12:00 AM CST E OPENER documented in this encounter Plan of Treatment Not on file documented as of this encounter Visit Diagnoses Not on filedocumented in this encounter Care Teams Inspector Plating Relationship Specialty Start Date End Date Franklin Squires MD [address] [facility] [place] [address] PCP - General Family Practice 03/08/16 documented as of this encounter
--- OUTSIDE RECORDS SUMMARY | 2024-10-05 12:45 | XMS_ITS | Encounter Summary ---
Author Organization [facility] Address [address] [address] Care Team Providers Care Pipe Installer Name Role Phone Franklin Squires MD Primary Care Provider [phone] Encounter Details Date Type Department Care Team (Late st Contact Info) Description 04/24/2012 Correspondence [facility] Radiology [address] [place] [address] Radiology, Provider MRI SAFETY SHEET AND COMPATIBILITY [...] [facility] [place] [address] PCP - General Family Practice 03/08/16 documented as of this encounter
--- OUTSIDE RECORDS SUMMARY | 2024-10-05 12:45 | XMS_ITS | Encounter Summary ---
Author Organization [facility] Address [address] [address] Care Team Providers Care Bpm Solution Architect Name Role Phone Franklin Squires MD [...] on filedocumented in this encounter Care Teams Bpm Solution Architect Relationship Specialty Start Date End Date Franklin Squires MD 100 [facility] [address] PCP - General Family Practice 03/08/16 documented as of this encounter
--- OUTSIDE RECORDS SUMMARY | 2024-10-05 12:45 | XMS_ITS | Encounter Summary ---
Author Organization [facility] Address [address], [place] [address] Care Team Providers Care Pharmacy Coordinator Name Role Phone Franklin Squires MD Primary Care Provider Encounter Details Date Type Department Care Team (Late st Contact Info) Description 05/04/2014 Correspondence [facility] 401 Physical Medicine 401 [place] [address] May Randle MD [address] [place] [address] LETTER OF MEDICAL NECESSITY FOR A WHEELCHAIR [...] filedocumented in this encounter Care Teams Pharmacy Coordinator Relationship Specialty Start Date End Date Franklin Squires MD 100 [facility] [place] [address] PCP - General Family Practice 03/08/16 documented as of this encounter
--- OUTSIDE RECORDS SUMMARY | 2024-10-05 12:45 | XMS_ITS | Encounter Summary ---
Author Organization [facility] Address [address] [address] Care Team Providers Care County Auditor Name Role Phone Franklin Squires MD Primary Care Provider Encounter Details Date Type Department Care Team (Late st Contact Info) Description 08/22/2014 Outside Hospital External to [facility] SUMMARY Social History Tobacco Use Types [...] filedocumented in this encounter Care Teams County Auditor Relationship Specialty Start Date End Date Franklin Squires MD 100 [facility] [address] PCP - General Family Practice 03/08/16 documented as of this encounter
--- OUTSIDE RECORDS SUMMARY | 2024-10-05 12:45 | XMS_ITS | Encounter Summary ---
Author Organization [facility] Address [address] [address] Care Team Providers Care Shotblaster Name Role Phone Franklin Squires MD Primary [...] on filedocumented in this encounter Care Teams Shotblaster Relationship Specialty Start Date End Date Franklin Squires MD 100 [facility] [place] [address] PCP - General Family Practice 03/08/16 documented as of this encounter
--- OUTSIDE RECORDS SUMMARY | 2024-10-05 12:45 | XMS_ITS | Encounter Summary ---
Author Organization [facility] Address [address] [address] Care Team Providers Care Citizen Participation Specialist Name Role Phone Franklin Squires MD Primary Care Provider Encounter Details Date Type Department Care Team (Late st Contact Info) Description 03/11/2014 Correspondence [facility] 401 Interventional Pain Management 401 [facility] [place] [address] Zelalem Cohen, DO [address] [place] [address] [facility] Social History Tobacco Use Types Packs/Day [...] on filedocumented in this encounter Care Teams Citizen Participation Specialist Relationship Specialty Start Date End Date Franklin Squires MD 100 [facility] [place] [address] PCP - General Family Practice 03/08/16 documented as of this encounter
--- OUTSIDE RECORDS SUMMARY | 2024-10-05 12:45 | XMS_ITS | Encounter Summary ---
Author Organization [facility] [address] [address] Care Team Providers Care Senior Mechanical Development Engineer Name Role Phone Franklin Squires MD Primary Care Provider Encounter Details Date Type Department Care Team (Late st Contact Info) Description 02/05/2014 Correspondence [facility] Physical Therapy [address] [place] [address] Trudi Raymundo, PT [address] [place] [address] LETTER OF MEDICAL NECESSITY FOR A WHEELCHAIR [...] filedocumented in this encounter Care Teams Senior Mechanical Development Engineer Relationship Specialty Start Date End Date Franklin Squires MD 100 [facility] [place] [address] PCP - General Family Practice 03/08/16 documented as of this encounter
--- OUTSIDE RECORDS SUMMARY | 2024-10-05 12:45 | XMS_ITS | Encounter Summary ---
Author Organization [facility] Address [address] [address] Care Team Providers Care Architectural Renderer Name Role Phone Franklin Squires MD Primary Care Provider [phone] Encounter Details Date Type Department Care Team (Late st Contact Info) Description 09/17/2013 Correspondence External to External, [place] [address] EMPOWERMENT RULES Social History Tobacco Use Types [...] External, Provider - 09/17/2013 12:00 AM CST OM POUNDER CEMENT SHOES documented in this encounter Plan of Treatment Not on file documented as of this encounter Visit Diagnoses Not on filedocumented in this encounter Care Teams Architectural Renderer Relationship Specialty Start Date End Date Franklin Squires MD 100 [facility] [place] [address] PCP - General Family Practice 03/08/16 documented as of this encounter
--- OUTSIDE RECORDS SUMMARY | 2024-10-05 12:45 | XMS_ITS | Encounter Summary ---
Author Organization [facility] Address [address] [address] Care Team Providers Care Project Architect Name Role Phone Franklin Squires MD Primary Care Provider [phone] Encounter Details Date Type Department Care Team (Late st Contact Info) Description 01/08/2013 Scanned History External to Transferred Record, Provider [facility] Social History Tobacco Use Types [...] filedocumented in this encounter Care Teams Project Architect Relationship Specialty Start Date End Date Franklin Squires MD 100 [facility] [place] [address] PCP - General Family Practice 03/08/16 documented as of this encounter
--- OUTSIDE RECORDS SUMMARY | 2024-10-05 12:45 | XMS_ITS | Encounter Summary ---
Author Organization [facility] Address [address] [address] Care Team Providers Care Java Application Engineer Name Role Phone Franklin Squires MD Primary Care Provider [phone] Encounter Details Date Type Department Care Team (Latest Contact Info) Description 06/04/2014 Correspondence [facility] 401 Interventional Pain Management 401 [facility] [place] [address] Zelalem Cohen, DO [address] [place] [address] MEDICAID PT INFORMATION EMPI RECOVERY Social History [...] filedocumented in this encounter Care Teams Java Application Engineer Relationship Specialty Start Date End Date Franklin Squires MD 100 [facility] [place] [address] PCP - General Family Practice 03/08/16 documented as of this encounter
== END 2024-10-05 12:42 | disposition home or self-care (01) ==
LOC: WOUND 12:42
PROVIDERS: PCP Family Medicine; Visit Provider Nurse Practitioner Family
DX: M86.68 Other chronic osteomyelitis, other site (principal); L89.324 Pressure ulcer of left buttock, stage 4; G82.50 Quadriplegia, unspecified; Z99.3 Dependence on wheelchair
CPT/HCPCS: 15271; Q4201

== ENCOUNTER 2024-10-12 12:45 | Outpatient (CLI) | payer MEDICARE, OTHER, SELFPAY ==
--- OUTSIDE RECORDS SUMMARY | 2024-10-12 12:47 | XMS_ITS | Continuity of Care Document ---
Author Name [facility] Organization [facility] Care Team Providers Care Food Preparer Name Role Phone [facility] Unavailable Unavailable Problems Combined list of problems from 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 It does not include entries that were removed or entered in error. Problem Status Onset Date Problem Type Date of Resolution Comments Source Abnormal liver function Active Condition [facility] Anemia ([facility] 327908592) Active Condition [facility] Anxiety ([facility] 94503698) Active Condition [facility] Autonomic dysreflexia Active Condition [facility] Chronic Pain Syndrome ([facility] 635724012) Active Condition [facility] Colostomy present Active Condition [facility] Constipation ([facility] 85488145) Active Condition [facility] Continuous opioid dependence Active Condition [facility] COPD - Chronic Obstructive Pulmonary Disease ([facility] 98576075) Active Condition [facility] Dementia Active Condition [facility] Depression ([facility] 16438965) Active Condition [facility] Diabetes Mellitus Type 2 ([facility] 92164829) Active Condition [facility] Ependymoma of spinal cord Active Condition [facility] Hearing Loss ([facility] 05314229) Active Condition [facility] History of Deep Vein Thrombosis ([facility] 349336509) Active Condition [facility] History of pressure injury Active Condition [facility] HTN - Hypertension ([facility] 87163635) Active Condition [facility] Hyperlipidemia ([facility] 39627536) Active Condition [facility] Hyponatremia Active Condition [facility] Long-term current use of anticoagulant Active Condition [facility] Neurogenic Bladder ([facility] 196643367) Active Condition [facility] Neurogenic bowel Active Condition [facility] Osteoporosis ([facility] 17000598) Active Condition [facility] Paraplegia Active Condition [facility] Spasticity Active Condition [facility] Suprapubic urinary catheter in situ Active Condition [facility] Supraventricular tachycardia Active Condition [facility] Tinnitus ([facility] 92696079) Active Condition [facility] Vitamin D Deficiency ([facility] 5681719) Active Condition [facility] Diagnosis: ICD-10-CM Z73.6 Limitation of activities due to disability Active Diagnosis [facility] Diagnosis: ICD-10-CM G82.20 Paraplegia, unspecified Active Diagnosis [facility] Medications Combined list of outpatient medications from Department of Defense and [facility] Affairs facilities.Medications provided include 1) outpatient medications from the last 15 months, and 2) patient-reported medications. Medication Details Route Status Patient Instructions Prescription Expires Prescription Number Last Dispense Date Ordering Provider Order Date Order Qty Source ACETAMINOPH EN 500MG TAB TAKE TWO TABLETS BY MOUTH THREE TIMES A DAY NEEDED ORAL ACTIVE Jagdish BARRETT N 2022 [employer] AMLODIPINE BESYLATE (AMLODIPINE BESYLATE), 5 MG, TABLET, ORAL, [employer] 1000 ea. BOTTLE Active [id number] 4 2023 90 Pharmac y Data Transac tion Service Facilit y AMLODIPINE BESYLATE (amlodipine besylate), 5 MG, TABLET, ORAL, [employer], 1000 ea. BOTTLE Active [id number] 4 2023 90 Pharmac y Data Transac tion Service Facilit y AMLODIPINE BESYLATE 2.5MG TAB TAKE TWO TABLETS BY MOUTH EVERY MORNING ORAL ACTIVE Jagdish BARRETT 2022 [employer] AMOX TR-POTASSIU M CLAVULANATE (AMOXICILLI N/POTASSIUM CLAV), 875-125 MG, TABLET, ORAL, [employer], 20 ea. BOTTLE Active [id number] 3 2022 14 Pharmac y Data Transac tion Service Facilit y AMOXICILLIN -CLAVULANAT E POTASS (amoxicilli n/potassium clavulanate ), 875-125 MG, TABLET, ORAL, [employer],, 20 ea. BOTTLE Active [id number] 2023 20 Pharmac y Data Transac tion Service Facilit y AMOXICILLIN -CLAVULANAT E POTASS (amoxicilli n/potassium clavulanate ), 875-125 MG, TABLET, ORAL, Phok[employer] [facility],, 20 ea. BOTTLE Active [id number] 2023 56 Pharmac y Data Transac tion Service Facilit y ARIPIPRAZOL E (aripiprazo le), 2 MG, TABLET, ORAL, [employer] PHARMACE, 500 ea. BOTTLE Active [id number] 2023 180 Pharmac y Data Transac tion Service Facilit y ARIPIPRAZOL E (aripiprazo le), 2 MG, TABLET, ORAL, [employer], 500 ea. BOTTLE Active [id number] 2023 180 Pharmac y Data Transac tion Service Facilit y ARIPIPRAZOL E TAB TAKE 2MG BY MOUTH TWICE A DAY ORAL ACTIVE Jey HANSON TAZEvelyn Clemente 2021 [facility] ATIVAN (LORAZEPAM) , 0.5 MG, TABLET, ORAL, VALEANT, 100 ea. BOTTLE Active [id number] 2023 120 Pharmac y Data Transac tion Service Facilit y ATORVASTATI N CA 80MG TAB TAKE ONE-HALF TABLET BY MOUTH EVERY DAY ORAL ACTIVE Jey HANSON Bryn 2021 [facility] ATORVASTATI N CALCIUM (atorvastat in calcium), 40 MG, TABLET, ORAL, BIOCON PHARMA I, 1000 ea. BOTTLE Active [id number] 2023 90 Pharmac y Data Transac tion Service Facilit y ATORVASTATI N CALCIUM (atorvastat in calcium), 40 MG, TABLET, ORAL, BIOCON PHARMA I, 1000 ea. BOTTLE Active [id number] 2023 90 Pharmac y Data Transac [...] ORAL, PAVEL PHARMACEU, 60 ea. BOTTLE Active [id number] 2023 180 Pharmac y Data Transac tion Service Facilit y BUPROPION HCL SR (bupropion HCl), 150 MG, TAB SR 12H, ORAL, PAVEL PHARMACEU, 60 ea. BOTTLE Active [id number] 2023 180 Pharmac y Data Transac [...] ORAL, AUROBINDO PHARM, 50 ea. BOTTLE Active [id number] 2023 70 Pharmac y Data Transac tion Service Facilit y DONEPEZIL HCL (DONEPEZIL HCL), 5 MG, TABLET, ORAL, [employer] 1000 ea. BOTTLE Active [id number] 2023 90 Pharmac y Data Transac tion Service Facilit y DONEPEZIL HCL (DONEPEZIL HCL), 5 MG, TABLET, ORAL, [employer] 1000 ea. BOTTLE Cancele d [id number] : 2023 0 Pharmac y Data Transac tion Service Facilit y DONEPEZIL HCL (DONEPEZIL HCL), 5 MG, TABLET, ORAL, [employer] 1000 ea. BOTTLE Active [id number] 2023 90 Pharmac y Data Transac tion Service Facilit y DONEPEZIL HCL 10MG TAB TAKE ONE-HALF TABLET BY MOUTH EVERY DAY ORAL ACTIVE Jey HANSON Bryn 2021 [facility] DULOXETINE HCL (duloxetine HCl), 60 MG, CAPSULE DR, ORAL, [employer] 1000 ea. BOTTLE Active [id number] 2023 180 Pharmac y Data Transac tion Service Facilit y DULOXETINE HCL (duloxetine HCl), 60 MG, CAPSULE DR, ORAL, [employer] 1000 ea. BOTTLE Active [id number] 2023 180 Pharmac y Data Transac tion Service Facilit y DULOXETINE HCL 30MG CAP,EC TAKE 2 CAPSULES BY MOUTH TWICE A DAY ORAL ACTIVE GRANDJey PRADHAN M 2021 [facility] FAMOTIDINE (famotidine ), 20 MG, TABLET, ORAL, [employer] 1000 ea. BOTTLE Active [id number] 2023 180 Pharmac y Data Transac tion Service Facilit y FAMOTIDINE 20MG TAB TAKE ONE TABLET BY MOUTH TWICE A DAY ORAL ACTIVE GRANDIA,C ONALAINAE M 2021 [facility] FUROSEMIDE (furosemide ), 40 MG, TABLET, ORAL, [employer], 1000 ea. BOTTLE Active [id number] 2023 180 Pharmac y Data Transac tion Service Facilit y FUROSEMIDE 40MG TAB TAKE ONE TABLET BY MOUTH TWICE A DAY ORAL ACTIVE MARGIE,C SB M 2021 [facility] GABAPENTIN (gabapentin ), 400 MG, CAPSULE, ORAL, [employer] 500 ea. BOTTLE Active [id number] 2023 270 Pharmac y Data Transac tion Service Facilit y GABAPENTIN (gabapentin ), 400 MG, CAPSULE, ORAL, [employer] PHARMAC, 500 ea. BOTTLE Active [id number] 2023 270 Pharmac y Data Transac tion Service Facilit y GABAPENTIN (gabapentin ), 400 MG, CAPSULE, ORAL, [employer]ACE, 500 ea. BOTTLE Cancele d [id number] : 2023 0 Pharmac y Data Transac tion Service Facilit y GABAPENTIN 400MG CAP TAKE 1 CAPSULE BY MOUTH THREE TIMES A DAY ORAL ACTIVE GRANDIAJeyE M 2021 [facility] LORAZEPAM (lorazepam) , 0.5 MG, TABLET, ORAL, A[employer] PHARM, 500 ea. BOTTLE Active [id number] 2023 120 Pharmac y Data Transac tion Service Facilit y LORAZEPAM (lorazepam) , 0.5 MG, TABLET, ORAL, LEADING PHARMA, 1000 ea. BOTTLE Active [id number] 2023 120 Pharmac y Data Transac tion Service Facilit y LORAZEPAM (lorazepam) , 0.5 MG, TABLET, ORAL, [employer] PHARMA, 1000 ea. BOTTLE Active [id number] 2023 120 Pharmac y Data Transac tion Service Facilit y LORAZEPAM (lorazepam) , 0.5 MG, TABLET, ORAL, [employer]ARMA, 1000 ea. BOTTLE Active [id number] 2023 120 Pharmac y Data Transac tion Service Facilit y LORAZEPAM (lorazepam) , 0.5 MG, TABLET, ORAL, [employer]ARMA, 500 ea. BOTTLE Active [id number] 2023 120 Pharmac y Data Transac tion Service Facilit y LORAZEPAM 0.5MG TAB TAKE ONE TABLET BY MOUTH THREE TIMES A DAY AND TAKE TWO TABLETS BY MOUTH AT BEDTIME ORAL ACTIVE Jagdish BARRETT 2022 [employer] MILK OF MAGNESIA TAKE 30ML BY MOUTH EVERY DAY NEEDED ORAL ACTIVE GRANDIA,C TAZE M 2021 [facility] MULTIVITAMI NS CAP/TAB TAKE ONE TABLET BY MOUTH EVERY DAY ORAL ACTIVE GRANDIA,C SB M 2021 [facility] NALOXONE HCL 4MG/SPRAY SOLN,SPRAY, NASAL SPRAY 1 DOSE IN ONE NOSTRIL DIRECTED PRN NASAL ACTIVE Jagdish BARRETT N 2022 [employer] OXYCODONE HCL (OXYCODONE HCL), 10 MG, TABLET, ORAL, [employer] 100 ea. BOTTLE Active [id number] 2023 120 Pharmac y Data Transac tion Service Facilit y OXYCODONE HCL (OXYCODONE HCL), 10 MG, TABLET, ORAL, [employer] 100 ea. BOTTLE Active [id number] 2023 120 Pharmac y Data Transac tion Service Facilit y OXYCODONE HCL (OXYCODONE HCL), 10 MG, TABLET, ORAL, [employer] 100 ea. BOTTLE Active [id number] 2023 120 Pharmac y Data Transac tion Service Facilit y OXYCODONE HCL (OXYCODONE HCL), 10 MG, TABLET, ORAL, [employer] 100 ea. BOTTLE Active [id number] 2023 120 Pharmac y Data Transac tion Service Facilit y OXYCODONE HCL (OXYCODONE HCL), 10 MG, TABLET, ORAL, [employer] 100 ea. BOTTLE Active [id number] 2023 120 Pharmac y Data Transac tion Service Facilit y OXYCODONE HCL (OXYCODONE HCL), 10 MG, TABLET, ORAL, [employer] 100 ea. BOTTLE Active [id number] 2023 120 Pharmac y Data Transac tion Service Facilit y OXYCODONE HCL (OXYCODONE HCL), 10 MG, TABLET, ORAL, [employer] 100 ea. BOTTLE Active [id number] 2022 120 Pharmac y Data Transac tion Service Facilit y OXYCODONE HCL 5MG TAB TAKE TWO TABLETS BY MOUTH FOUR TIMES A DAY ORAL ACTIVE Jagdish BARRETT 2022 [employer] POTASSIUM CHLORIDE (potassium chloride), 10 MEQ, TAB ER PRT, ORAL, [employer], 100 ea. BOTTLE Active [id number] 2023 180 Pharmac y Data Transac tion Service Facilit y POTASSIUM CHLORIDE (potassium chloride), 10 MEQ, TAB ER PRT, ORAL, [employer], 100 ea. BOTTLE Active [id number] 2023 180 Pharmac y Data Transac tion Service Facilit y POTASSIUM CHLORIDE (potassium chloride), 20 MEQ, TAB ER PRT, ORAL, [employer], 100 ea. BOTTLE Active [id number] 2023 90 Pharmac y Data Transac tion Service Facilit y POTASSIUM CHLORIDE 20MEQ TAB,SA (DISPERSIBL E) TAKE ONE TABLET BY MOUTH TWICE A DAY ORAL ACTIVE Jey HANSON 2021 [facility] SANTYL (collagenas e Clostridium histolyticu m), 250 UNIT/G, OINT. (G), TOPICAL, [place]&N/UNI LUIS, 30 g TUBE Cancele d [id number] : 2023 0 Pharmac y Data Transac tion Service Facilit y WARFARIN SODIUM (warfarin sodium), 5 MG, TABLET, ORAL, [employer] 1000 ea. BOTTLE Cancele d [id number] : 2022 0 Pharmac y Data Transac tion Service Facilit y WARFARIN SODIUM (WARFARIN SODIUM), 5 MG, TABLET, ORAL, [employer], 1000 ea. BOTTLE Active [id number] 2023 25 Pharmac y Data Transac tion Service Facilit y WARFARIN SODIUM (WARFARIN SODIUM), 5 MG, TABLET, ORAL, [employer], 1000 ea. BOTTLE Active [id number] 2023 12 Pharmac y Data Transac tion Service Facilit y WARFARIN SODIUM (WARFARIN SODIUM), 5 MG, TABLET, ORAL, [employer], 1000 ea. BOTTLE Active [id number] 2023 40 Pharmac y Data Transac tion Service Facilit y WARFARIN SODIUM (WARFARIN SODIUM), 5 MG, TABLET, ORAL, [employer], 1000 ea. BOTTLE Cancele d [id number] : 2022 0 Pharmac y Data Transac tion Service Facilit y WARFARIN SODIUM (warfarin sodium), 7.5 MG, TABLET, ORAL, [employer], 100 ea. BOTTLE Active [id number] 2023 51 Pharmac y Data Transac tion Service Facilit y WARFARIN SODIUM (warfarin sodium), 7.5 MG, TABLET, ORAL, [employer], 100 ea. BOTTLE Active [id number] 2023 78 Pharmac y Data Transac tion Service Facilit y WARFARIN TAB TAKE 5MG BY MOUTH SUN/THUR S AND TAKE 7.5MG BY MOUTH ALL OTHER DAYS ORAL ACTIVE Jagdish BARRETT 2022 [employer] Allergies, Adverse Reactions, Alerts Combined list of allergies from Department [facility] and [facility] facilities. It does not include entries that were removed or entered in error. Substance Category Reaction Severity Reaction type Status Date Reported Comments Source AMOXICILLIN Propensity to adverse reactions to drug (finding) Eruption [facility] METOLAZONE Propensity to adverse reactions to drug (finding) Itching active [address] [facility] MORPHINE Propensity to adverse reactions to drug (finding) Delirium active [address] [facility] PIPERACILLIN Propensity to adverse reactions to drug (finding) Eruption active [address] [facility] SULFA DRUGS Propensity to adverse reactions to drug (finding) Eruption active [address] [facility] TAZOBACTAM SODIUM Propensity to adverse reactions to drug (finding) Eruption active [address] [facility] Immunizations Combined list of available immunizations from the Department of [facility] and [facility] facilities. 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 Status Comments Source COVID-19 (Honk), MRNA, LNP-S, BIVALENT, PF, 30 MCG/0.3 ML DOSE 2021 300 complet ed [employer] INFLUENZA, ADJUVANTED, QUADRIVALENT, PF 2021 205 complet ed [employer] INFLUENZA, UNSPECIFIED FORMULATION 2021 88 complet ed [employer] TD (ADULT), 5 LF TETANUS TOXOID, PRESERVATIVE FREE, ADSORBED 2021 113 complet ed [facility] INFLUENZA, ADJUVANTED, QUADRIVALENT, PF 2020 205 complet ed [employer] INFLUENZA, UNSPECIFIED FORMULATION 2020 88 complet ed [employer] COVID-19 (Honk), MRNA, LNP-S, PF, 30 MCG/0.3 ML DOSE 3 2020 208 complet ed [employer] COVID-19 (PFIZER), MRNA, LNP-S, PF, 30 MCG/0.3 ML DOSE 2 2020 208 complet ed [employer] COVID-19 ([place]k), MRNA, LNP-S, PF, 30 MCG/0.3 ML DOSE 1 2020 208 complet ed [employer] INFLUENZA, ADJUVANTED, QUADRIVALENT, PF 2019 205 complet ed [employer] INFLUENZA, ADJUVANTED, TRIVALENT, PF 2018 168 complet ed [employer] INFLUENZA, ADJUVANTED, TRIVALENT, PF 2017 168 complet ed [employer] INFLUENZA, HIGH-DOSE, TRIVALENT, PF 2016 135 complet ed [employer] INFLUENZA, ADJUVANTED, TRIVALENT, PF 2016 168 complet ed [employer] INFLUENZA, HIGH-DOSE, TRIVALENT, PF 2015 135 complet ed [employer] ZOSTER LIVE 2015 121 complet ed [employer] PNEUMOCOCCAL CONJUGATE PCV 13 2014 133 complet ed [facility] INFLUENZA, HIGH-DOSE, TRIVALENT, PF 2014 135 complet ed [employer] INFLUENZA, HIGH-DOSE, TRIVALENT, PF 2013 135 complet ed [employer] INFLUENZA, UNSPECIFIED FORMULATION 2013 88 complet ed [employer] INFLUENZA, SPLIT VIRUS, TRIVALENT, PRESERVATIVE 2012 141 complet ed [employer] ZOSTER LIVE 2012 121 complet ed [facility] INFLUENZA, SPLIT VIRUS, TRIVALENT, PRESERVATIVE 2011 141 complet ed [employer] INFLUENZA, SPLIT VIRUS, TRIVALENT, PF 2010 140 complet ed [employer] PNEUMOCOCCAL POLYSACCHARID E PPV23 2010 33 complet ed [employer] TDAP 2010 115 complet ed [facility] INFLUENZA, SPLIT VIRUS, TRIVALENT, PRESERVATIVE 2009 141 complet ed [employer] NOVEL INFLUENZA-H1N 1-09, ALL FORMULATIONS 2009 128 complet ed [employer] INFLUENZA, SPLIT VIRUS, TRIVALENT, PF 2008 140 complet ed [employer] PNEUMOCOCCAL POLYSACCHARID E PPV23 2008 33 complet ed [employer] INFLUENZA, SPLIT VIRUS, TRIVALENT, PRESERVATIVE 2008 141 complet ed [employer] INFLUENZA, SPLIT VIRUS, TRIVALENT, PRESERVATIVE 2007 141 complet ed [employer] INFLUENZA, SPLIT VIRUS, TRIVALENT, PRESERVATIVE 2005 141 complet ed [employer] INFLUENZA, SPLIT VIRUS, TRIVALENT, PRESERVATIVE 2004 141 complet ed [employer] PNEUMOCOCCAL POLYSACCHARID E PPV23 2004 33 complet ed [employer] INFLUENZA, SPLIT VIRUS, TRIVALENT, PRESERVATIVE 2003 141 complet ed [employer] Results Combined list of recent chemistry, hematology [...] Feb 05, 2023 03:10 PM Reporting Lab: [facility] [phone] Performing Lab: [facility] [address] [facility] CYSTATIN C WITH EGFR CYSTATIN C AND GLOMERULAR FILTRATION RATE BY CYSTATIN C-BASED FORMULA PANEL - SERUM OR PLASMA 53 60 02/13 L Specimen Type: PLASMA No comment entered. Ordering Provider: ANKUSH BOWMAN Report Released Date/Time: Feb 05, 2023 03:10 PM Reporting Lab: [facility] [address] Performing Lab: [facility] [address] [facility]IC METABOLI C PANEL+MG CREATININE [MASS/VOLU ME] IN SERUM OR PLASMA 0.7 mg/dL 0.7 - 1.2 02/13 Specimen Type: PLASMA No comment entered. Ordering Provider: ANKUSH BOWMAN Report Released Date/Time: Feb 05, 2023 03:10 PM Reporting Lab: [facility] [address] Performing Lab: [facility] [address] [place] [facility] MET[facility]OLI [facility] PANEL+MG UREA NITROGEN [MASS/VOLU ME] IN SERUM OR PLASMA 15 mg/dL 8 - 26 02/13 Specimen Type: PLASMA No comment entered. Ordering Provider: ANKUSH BOWMAN Report Released Date/Time: Feb 05, 2023 03:10 PM Reporting Lab: [facility] [address] Performing Lab: [facility] [address] [place] [facility] C PANEL+MG GLUCOSE [MASS/VOLU ME] IN SERUM OR PLASMA 140 mg/dL 70 - 100 02/13 H Specimen Type: PLASMA No comment entered. Ordering Provider: ANKUSH BOWMAN Report Released Date/Time: Feb 05, 2023 03:10 PM Reporting Lab: [facility] [address] Performing Lab: [facility] [address] [place] [facility] MET[facility]OLI C PANEL+MG SODIUM [MOLES/VOL UME] IN SERUM OR PLASMA 135 mmol/L 136 - 145 02/13 L Specimen Type: PLASMA No comment entered. Ordering Provider: ANKUSH BOWMAN Report Released Date/Time: Feb 05, 2023 03:10 PM Reporting Lab: [facility] [address] Performing Lab: [facility] [address] [place] [facility] PANEL+MG POTASSIUM [MOLES/VOL UME] IN SERUM OR PLASMA 4.0 mmol/L 3.5 - 5.1 02/13 Specimen Type: PLASMA No comment entered. Ordering Provider: ANKUSH BOWMAN Report Released Date/Time: Feb 05, 2023 03:10 PM Reporting Lab: [facility] [address] Performing Lab: [facility] [address] [place] [facility] PANEL+MG CHLORIDE [MOLES/VOL UME] IN SERUM OR PLASMA 99 mmol/L 98 - 107 02/13 Specimen Type: PLASMA No comment entered. Ordering Provider: ANKUSH BOWMAN Report Released Date/Time: Feb 05, 2023 03:10 PM Reporting Lab: [facility] [address] Performing Lab: [facility] [address] [place] [facility] PANEL+MG CARBON DIOXIDE, TOTAL [MOLES/VOL UME] IN SERUM OR PLASMA 29 mmol/L 22 - 29 02/13 Specimen Type: PLASMA No comment entered. Ordering Provider: ANKUSH BOWMAN Report Released Date/Time: Feb 05, 2023 03:10 PM Reporting Lab: [facility] [address] Performing Lab: [facility] [address] [place] [facility] PANEL+MG CALCIUM [MASS/VOLU ME] IN SERUM OR PLASMA 9.2 mg/dL 8.4 - 10.2 02/13 Specimen Type: PLASMA No comment entered. Ordering Provider: ANKUSH BOWMAN Report Released Date/Time: Feb 05, 2023 03:10 PM Reporting Lab: [facility] [address] Performing Lab: [facility] [address] [place] [facility] PANEL+MG MAGNESIUM [MASS/VOLU ME] IN SERUM OR PLASMA 2.0 mg/dL 1.6 - 2.6 02/13 Specimen Type: PLASMA No comment entered. Ordering Provider: ANKUSH BOWMAN Report Released Date/Time: Feb 05, 2023 03:10 PM Reporting Lab: [facility] [address] Performing Lab: [facility] [address] [place] [facility] PANEL+MG ANION GAP IN SERUM OR PLASMA 7 mmol/L 5 - 15 02/13 Specimen Type: PLASMA No comment entered. Ordering Provider: ANKUSH BOWMAN Report Released Date/Time: Feb 05, 2023 03:10 PM Reporting Lab: [facility] [address] Performing Lab: [facility] [address] [place] [facility] PANEL+MG GLOMERULAR FILTRATION RATE/1.73 SQ M.PREDICTE D [VOLUME RATE/AREA] IN SERUM, PLASMA OR BLOOD BY CREATININE -BASED FORMULA (CKD-EPI) >90 60 02/13 Specimen Type: PLASMA No comment entered. Ordering Provider: ANKUSH BOWMAN Report Released Date/Time: Feb 05, 2023 03:10 PM Reporting Lab: [facility] [address] Performing Lab: [facility] [address] [place] [facility] URINAL[facility] IS COLOR OF URINE YELLOW 10/08 Specimen Type: URINE No comment entered. Ordering Provider: ANKUSH BOWMAN Report Released Date/Time: Sep 24, 2022 01:55 PM Reporting Lab: [facility] [address] Performing Lab: [facility] [address] [place] [facility] UR[facility] IS SPECIFIC GRAVITY OF URINE 1.023 1.003 - 1.035 10/08 Specimen Type: URINE No comment entered. Ordering Provider: ANKUSH BOWMAN Report Released Date/Time: Sep 24, 2022 01:55 PM Reporting Lab: [facility] [address] Performing Lab: [facility] [address] [place] [facility] URINAL[facility] IS BILIRUBIN. TOTAL [PRESENCE] IN URINE BY TEST STRIP NEGATIVE 10/08 Specimen Type: URINE No comment entered. Ordering Provider: ANKUSH BOWMAN Report Released Date/Time: Sep 24, 2022 01:55 PM Reporting Lab: [facility] [address] Performing Lab: [facility] [address] [place] [facility] URINAL[facility] IS KETONES [MASS/VOLU ME] IN URINE BY TEST STRIP NEGATIVE 10/08 Specimen Type: URINE No comment entered. Ordering Provider: ANKUSH BOWMAN Report Released Date/Time: Sep 24, 2022 01:55 PM Reporting Lab: [facility] [address] Performing Lab: [facility] [address] [place] [facility] URINAL[facility] IS GLUCOSE [MASS/VOLU ME] IN URINE BY TEST STRIP NEGATIVE mg/dL <30 - 30 10/08 Specimen Type: URINE No comment entered. Ordering Provider: ANKUSH BOWMAN Report Released Date/Time: Sep 24, 2022 01:55 PM Reporting Lab: [facility] [address] Performing Lab: [facility] [address] [place] [facility] URINAL[facility] IS PROTEIN [MASS/VOLU ME] IN URINE BY TEST STRIP 30 mg/dL <20 - 20 10/08 Specimen Type: URINE No comment entered. Ordering Provider: ANKUSH BOWMAN Report Released Date/Time: Sep 24, 2022 01:55 PM Reporting Lab: [facility] [address] Performing Lab: [facility] [address] [place] [facility] UR[facility] PH OF URINE BY TEST STRIP 7.5 5.0 - 8.0 10/08 Specimen Type: URINE No comment entered. Ordering Provider: ANKUSH BOWMAN Report Released Date/Time: Sep 24, 2022 01:55 PM Reporting Lab: [facility] [address] Performing Lab: [facility] [address] [place] [facility] UR[facility] LEUKOCYTES [#/AREA] IN URINE SEDIMENT BY MICROSCOPY HIGH POWER FIELD >180/[HP F] 0 - 7 10/08 H Specimen Type: URINE No comment entered. Ordering Provider: ANKUSH BOWMAN Report Released Date/Time: Sep 24, 2022 01:55 PM Reporting Lab: [facility] [id number] Performing Lab: [facility] [address] [place] [facility] URINALYS IS BACTERIA [PRESENCE] IN URINE SEDIMENT BY LIGHT MICROSCOPY MANY 10/08 Specimen Type: URINE No comment entered. Ordering Provider: ANKUSH BOWMAN Report Released Date/Time: Sep 24, 2022 01:55 PM Reporting Lab: [facility] [id number] Performing Lab: [facility] [address] [facility] URINALYS IS ERYTHROCYT ES [#/AREA] IN URINE SEDIMENT BY MICROSCOPY HIGH POWER FIELD 33 /[HPF] 0 - 3 10/08 H Specimen Type: URINE No comment entered. Ordering Provider: ANKUSH BOWMAN Report Released Date/Time: Sep 24, 2022 01:55 PM Reporting Lab: [facility] [address] Performing Lab: [facility] [address] [facility] URINALYS IS APPEARANCE OF URINE EX.TURBI D 10/08 Specimen Type: URINE No comment entered. Ordering Provider: ANKUSH BOWMAN Report Released Date/Time: Sep 24, 2022 01:55 PM Reporting Lab: [facility] [address] Performing Lab: [facility] [address] [facility] URINALYS IS EPITHELIAL CELLS.SQUA MOUS [#/AREA] IN URINE SEDIMENT BY MICROSCOPY HIGH POWER FIELD 1 /[HPF] 10/08 Specimen Type: URINE No comment entered. Ordering Provider: ANKUSH BOWMAN Report Released Date/Time: Sep 24, 2022 01:55 PM Reporting Lab: [facility] [address] Performing Lab: [facility] [address] [facility] URINALYS IS HEMOGLOBIN [PRESENCE] IN URINE BY TEST STRIP 1+ 10/08 Specimen Type: URINE No comment entered. Ordering Provider: ANKUSH BOWMAN Report Released Date/Time: Sep 24, 2022 01:55 PM Reporting Lab: [facility] [address] Performing Lab: [facility] [address] [facility] URINALYS IS NITRITE [PRESENCE] IN URINE BY TEST STRIP NEGATIVE 10/08 Specimen Type: URINE No comment entered. Ordering Provider: ANKUSH BOWMAN Report Released Date/Time: Sep 24, 2022 01:55 PM Reporting Lab: [facility] [address] Performing Lab: [facility] [address] [facility] URINALYS IS LEUKOCYTE CLUMPS [#/VOLUME] IN URINE BY AUTOMATED COUNT PRESENT 10/08 Specimen Type: URINE No comment entered. Ordering Provider: ANKUSH BOWMAN Report Released Date/Time: Sep 24, 2022 01:55 PM Reporting Lab: [facility] [address] Performing Lab: [facility] [address] [facility] LEUKOCYTE ESTERASE [PRESENCE] IN URINE BY TEST STRIP 500 10/08 Specimen Type: URINE No comment entered. Ordering Provider: ANKUSH BOWMAN Report Released Date/Time: Sep 24, 2022 01:55 PM Reporting Lab: [facility] [address] Performing Lab: [facility] [address] [facility] ALBUMIN ALBUMIN [MASS/VOLU ME] IN SERUM OR PLASMA 4.2 g/dL 3.5 - 5.2 10/08 Specimen Type: PLASMA No comment entered. Ordering Provider: ANKUSH BOWMAN Report Released Date/Time: Sep 24, 2022 01:55 PM Reporting Lab: [facility] [address] Performing Lab: [facility] [address] [facility] PRE-ALBU MIN PREALBUMIN [MASS/VOLU ME] IN SERUM OR PLASMA 28.4 mg/dL 14.0 - 45.0 10/08 Specimen Type: SERUM No comment entered. Ordering Provider: ANKUSH BOWMAN Report Released Date/Time: Sep 24, 2022 01:55 PM Reporting Lab: [facility] [address] Performing Lab: [facility] [address] [facility] CBC & DIFF LEUKOCYTES [#/VOLUME] IN BLOOD BY AUTOMATED COUNT 7.32 10*3/uL 4.0 - 11.0 10/08 Specimen Type: BLOOD Comment: Automated Differentia l Performed Ordering Provider: ANKUSH BOWMAN Report Released Date/Time: Sep 24, 2022 01:55 PM Reporting Lab: [facility] [address] Performing Lab: [facility] [address] [facility] CBC & DIFF ERYTHROCYT ES [#/VOLUME] IN BLOOD BY AUTOMATED COUNT 4.80 10*6/uL 4.6 - 6.2 10/08 Specimen Type: BLOOD Comment: Automated Differentia l Performed Ordering Provider: ANKUSH BOWMAN Report Released Date/Time: Sep 24, 2022 01:55 PM Reporting Lab: [facility] [address] Performing Lab: [facility] [address] [facility] CBC & DIFF HEMOGLOBIN [MASS/VOLU ME] IN BLOOD 14.7 g/dL 13.5 - 17.9 10/08 Specimen Type: BLOOD Comment: Automated Differentia l Performed Ordering Provider: ANKUSH BOWMAN Report Released Date/Time: Sep 24, 2022 01:55 PM Reporting Lab: [facility] [address] Performing Lab: [facility] [address] [facility] CBC & DIFF HEMATOCRIT [VOLUME FRACTION] OF BLOOD BY AUTOMATED COUNT 44.2 41 - 54 10/08 Specimen Type: BLOOD Comment: Automated Differentia l Performed Ordering Provider: ANKUSH BOWMAN Report Released Date/Time: Sep 24, 2022 01:55 PM Reporting Lab: [facility] [address] Performing Lab: [facility] [address] [facility] CBC & DIFF MCV [ENTITIC VOLUME] BY AUTOMATED COUNT 92.1 fL 80 - 100 10/08 Specimen Type: BLOOD Comment: Automated Differentia l Performed Ordering Provider: ANKUSH BOWMAN Report Released Date/Time: Sep 24, 2022 01:55 PM Reporting Lab: [facility] [address] Performing Lab: [facility] [address] [facility] CBC & DIFF MCH [ENTITIC MASS] BY AUTOMATED COUNT 30.6 pg 27 - 33 10/08 Specimen Type: BLOOD Comment: Automated Differentia l Performed Ordering Provider: ANKUSH BOWMAN Report Released Date/Time: Sep 24, 2022 01:55 PM Reporting Lab: [facility] [address] Performing Lab: [facility] [address] [facility] CBC & DIFF MCHC [MASS/VOLU ME] BY AUTOMATED COUNT 33.3 g/dL 32.0 - 37.5 10/08 Specimen Type: BLOOD Comment: Automated Differentia l Performed Ordering Provider: ANKUSH BOWMAN Report Released Date/Time: Sep 24, 2022 01:55 PM Reporting Lab: [facility] [address] Performing Lab: [facility] [address] [facility] CBC & DIFF PLATELETS [#/VOLUME] IN BLOOD BY AUTOMATED COUNT 144 10*3/uL 150 - 400 10/08 L Specimen Type: BLOOD Comment: Automated Differentia l Performed Ordering Provider: ANKUSH BOWMAN Report Released Date/Time: Sep 24, 2022 01:55 PM Reporting Lab: [facility] [address] Performing Lab: [facility] [address] [facility] CBC & DIFF PLATELET MEAN VOLUME [ENTITIC VOLUME] IN BLOOD BY AUTOMATED COUNT 10.8 fL 7.4 - 10.4 10/08 H Specimen Type: BLOOD Comment: Automated Differentia l Performed Ordering Provider: ANKUSH BOWMAN Report Released Date/Time: Sep 24, 2022 01:55 PM Reporting Lab: [facility] [address] Performing Lab: [facility] [address] [facility] CBC & DIFF NEUTROPHIL S/100 LEUKOCYTES IN BLOOD BY MANUAL COUNT 55.5 10/08 Specimen Type: BLOOD Comment: Automated Differentia l Performed Ordering Provider: ANKUSH BOWMAN Report Released Date/Time: Sep 24, 2022 01:55 PM Reporting Lab: [facility] [address] Performing Lab: [facility] [address] [facility] CBC & DIFF LYMPHOCYTE S/100 LEUKOCYTES IN BLOOD BY MANUAL COUNT 31.4 10/08 Specimen Type: BLOOD Comment: Automated Differentia l Performed Ordering Provider: ANKUSH BOWMAN Report Released Date/Time: Sep 24, 2022 01:55 PM Reporting Lab: [facility] [address] Performing Lab: [facility] [address] [facility] CBC & DIFF MONOCYTES/ 100 LEUKOCYTES IN BLOOD BY AUTOMATED COUNT 10.2 10/08 Specimen Type: BLOOD Comment: Automated Differentia l Performed Ordering Provider: ANKUSH BOWMAN Report Released Date/Time: Sep 24, 2022 01:55 PM Reporting Lab: [facility] [address] Performing Lab: [facility] [address] [facility] CBC & DIFF EOSINOPHIL S/100 LEUKOCYTES IN BLOOD BY AUTOMATED COUNT 2.2 10/08 Specimen Type: BLOOD Comment: Automated Differentia l Performed Ordering Provider: ANKUSH BOWMAN Report Released Date/Time: Sep 24, 2022 01:55 PM Reporting Lab: [facility] [address] Performing Lab: [facility] [address] [facility] CBC & DIFF BASOPHILS/ 100 LEUKOCYTES IN BLOOD BY MANUAL COUNT 0.4 10/08 Specimen Type: BLOOD Comment: Automated Differentia l Performed Ordering Provider: ANKUSH BOWMAN Report Released Date/Time: Sep 24, 2022 01:55 PM Reporting Lab: [facility] [address] Performing Lab: [facility] [address] [facility] CBC & DIFF ERYTHROCYT E DISTRIBUTI ON WIDTH [RATIO] BY AUTOMATED COUNT 15.9 11.5 - 14.5 10/08 H Specimen Type: BLOOD Comment: Automated Differentia l Performed Ordering Provider: ANKUSH BOWMAN Report Released Date/Time: Sep 24, 2022 01:55 PM Reporting Lab: [facility] [address] Performing Lab: [facility] [address] [facility] CBC & DIFF LYMPHOCYTE S [#/VOLUME] IN BLOOD BY AUTOMATED COUNT 2.30 10*3/uL 1.0 - 4.0 10/08 Specimen Type: BLOOD Comment: Automated Differentia l Performed Ordering Provider: ANKUSH BOWMAN Report Released Date/Time: Sep 24, 2022 01:55 PM Reporting Lab: [facility] [address] Performing Lab: [facility] [address] [facility] CBC & DIFF MONOCYTES [#/VOLUME] IN BLOOD BY AUTOMATED COUNT 0.75 10*3/uL 0.1 - 1.0 10/08 Specimen Type: BLOOD Comment: Automated Differentia l Performed Ordering Provider: ANKUSH BOWMAN Report Released Date/Time: Sep 24, 2022 01:55 PM Reporting Lab: [facility] [address] Performing Lab: [facility] [address] [facility] CBC & DIFF NEUTROPHIL S [#/VOLUME] IN BLOOD BY AUTOMATED COUNT 4.06 10*3/uL 2.0 - 7.7 10/08 Specimen Type: BLOOD Comment: Automated Differentia l Performed Ordering Provider: ANKUSH BOWMAN Report Released Date/Time: Sep 24, 2022 01:55 PM Reporting Lab: [facility] [address] Performing Lab: [facility] [address] [facility] CBC & DIFF EOSINOPHIL S [#/VOLUME] IN BLOOD BY AUTOMATED COUNT 0.16 10*3/uL 0 - 0.5 10/08 Specimen Type: BLOOD Comment: Automated Differentia l Performed Ordering Provider: ANKUSH BOWMAN Report Released Date/Time: Sep 24, 2022 01:55 PM Reporting Lab: [facility] [address] Performing Lab: [facility] [address] [facility] CBC & DIFF BASOPHILS [#/VOLUME] IN BLOOD BY AUTOMATED COUNT 0.03 10*3/uL 0 - 0.2 10/08 Specimen Type: BLOOD Comment: Automated Differentia l Performed Ordering Provider: ANKUSH BOWMAN Report Released Date/Time: Sep 24, 2022 01:55 PM Reporting Lab: [facility] [address] Performing Lab: [facility] [address] [facility] CBC & DIFF IG(META,MY MALACHI,PRO) 0.3 10/08 Specimen Type: BLOOD Comment: Automated Differentia l Performed Ordering Provider: ANKUSH BOWMAN Report Released Date/Time: Sep 24, 2022 01:55 PM Reporting Lab: [facility] [address] Performing Lab: [facility] [address] [facility] CBC & DIFF IMMATURE GRANULOCYT ES [PRESENCE] IN BLOOD BY AUTOMATED COUNT 0.02 10*3/uL 0 - 0.1 10/08 Specimen Type: BLOOD Comment: Automated Differentia l Performed Ordering Provider: ANKUSH BOWMAN Report Released Date/Time: Sep 24, 2022 01:55 PM Reporting Lab: [facility] [address] Performing Lab: [facility] [address] [facility] COMPREHE NSIVE METABOLI C PANEL+MG CREATININE [MASS/VOLU ME] IN SERUM OR PLASMA 0.7 mg/dL 0.7 - 1.2 10/08 Specimen Type: PLASMA No comment entered. Ordering Provider: ANUKSH BOWMAN Report Released Date/Time: Sep 24, 2022 01:55 PM Reporting Lab: [facility] [address] Performing Lab: [place] [address] [facility] COMPREHE NSIVE METABOLI C PANEL+MG UREA NITROGEN [MASS/VOLU ME] IN SERUM OR PLASMA 16 mg/dL 8 - 26 10/08 Specimen Type: PLASMA No comment entered. Ordering Provider: ANKUSH BOWMAN Report Released Date/Time: Sep 24, 2022 01:55 PM Reporting Lab: [facility] [address] Performing Lab: [facility] [address] [facility] COMPREHE NSIVE METABOLI C PANEL+MG GLUCOSE [MASS/VOLU ME] IN SERUM OR PLASMA 94 mg/dL 70 - 100 10/08 Specimen Type: PLASMA No comment entered. Ordering Provider: ANKUSH BOWMAN Report Released Date/Time: Sep 24, 2022 01:55 PM Reporting Lab: [facility] [address] Performing Lab: [facility] [address] [facility] COMPREHE NSIVE METABOLI C PANEL+MG SODIUM [MOLES/VOL UME] IN SERUM OR PLASMA 138 mmol/L 136 - 145 10/08 Specimen Type: PLASMA No comment entered. Ordering Provider: ANKUSH BOWMAN Report Released Date/Time: Sep 24, 2022 01:55 PM Reporting Lab: [facility] [address] Performing Lab: [facility] [address] [place] [facility] COMPREHE NSIVE METABOLI C PANEL+MG POTASSIUM [MOLES/VOL UME] IN SERUM OR PLASMA 3.9 mmol/L 3.5 - 5.1 10/08 Specimen Type: PLASMA No comment entered. Ordering Provider: ANKUSH BOWMAN Report Released Date/Time: Sep 24, 2022 01:55 PM Reporting Lab: [facility] [address] Performing Lab: [facility] [address] [facility] COMPREHE NSIVE METABOLI C PANEL+MG CHLORIDE [MOLES/VOL UME] IN SERUM OR PLASMA 101 mmol/L 98 - 107 10/08 Specimen Type: PLASMA No comment entered. Ordering Provider: ANKUSH BOWMAN Report Released Date/Time: Sep 24, 2022 01:55 PM Reporting Lab: [facility] [address] Performing Lab: [facility] [address] [place] COMPREHE NSIVE METABOLI C PANEL+MG CARBON DIOXIDE, TOTAL [MOLES/VOL UME] IN SERUM OR PLASMA 28 mmol/L 22 - 29 10/08 Specimen Type: PLASMA No comment entered. Ordering Provider: ANKUSH BOWMAN Report Released Date/Time: Sep 24, 2022 01:55 PM Reporting Lab: [facility] [address] Performing Lab: [facility] [address] [facility] COMPREHE NSIVE METABOLI C PANEL+MG CALCIUM [MASS/VOLU ME] IN SERUM OR PLASMA 9.7 mg/dL 8.4 - 10.2 10/08 Specimen Type: PLASMA No comment entered. Ordering Provider: ANKUSH BOWMAN Report Released Date/Time: Sep 24, 2022 01:55 PM Reporting Lab: [facility] [address] Performing Lab: [facility] [address] [place] [facility] COMPREHE NSIVE METABOLI C PANEL+MG PROTEIN [MASS/VOLU ME] IN SERUM OR PLASMA 7.6 g/dL 6.0 - 8.3 10/08 Specimen Type: PLASMA No comment entered. Ordering Provider: ANKUSH BOWMAN Report Released Date/Time: Sep 24, 2022 01:55 PM Reporting Lab: [facility] [address] Performing Lab: [facility] [address] [facility] COMPREHE NSIVE METABOLI C PANEL+MG ALBUMIN [MASS/VOLU ME] IN SERUM OR PLASMA 4.2 g/dL 3.5 - 5.2 10/08 Specimen Type: PLASMA No comment entered. Ordering Provider: ANKUSH BOWMAN Report Released Date/Time: Sep 24, 2022 01:55 PM Reporting Lab: [facility] [address] Performing Lab: [facility] [address] [facility] COMPREHE NSIVE METABOLI C PANEL+MG BILIRUBIN. TOTAL [MASS/VOLU ME] IN SERUM OR PLASMA 0.6 mg/dL 0.2 - 1.2 10/08 Specimen Type: PLASMA No comment entered. Ordering Provider: ANKUSH BOWMAN Report Released Date/Time: Sep 24, 2022 01:55 PM Reporting Lab: [facility] [address] Performing Lab: [facility] [address] [facility] COM[facility]HE NSIVE METABOLI C PANEL+MG MAGNESIUM [MASS/VOLU ME] IN SERUM OR PLASMA 2.1 mg/dL 1.6 - 2.6 10/08 Specimen Type: PLASMA No comment entered. Ordering Provider: ANKUSH BOWMAN Report Released Date/Time: Sep 24, 2022 01:55 PM Reporting Lab: [facility] [address] Performing Lab: [facility] [address] [place] COMPREHE NSIVE METABOLI C PANEL+MG ANION GAP IN SERUM OR PLASMA 9 mmol/L 5 - 15 10/08 Specimen Type: PLASMA No comment entered. Ordering Provider: ANKUSH BOWMAN Report Released Date/Time: Sep 24, 2022 01:55 PM Reporting Lab: [facility] [address] Performing Lab: [facility] [address] [facility] COMPREHE NSIVE METABOLI C PANEL+MG ALKALINE PHOSPHATAS E [ENZYMATIC ACTIVITY/V OLUME] IN SERUM OR PLASMA 96 U/L 40 - 150 10/08 Specimen Type: PLASMA No comment entered. Ordering Provider: ANKUSH BOWMAN Report Released Date/Time: Sep 24, 2022 01:55 PM Reporting Lab: [facility] [address] Performing Lab: [facility] [address] [place] COMPREHE NSIVE METABOLI C PANEL+MG ALANINE AMINOTRANS FERASE [ENZYMATIC ACTIVITY/V OLUME] IN SERUM OR PLASMA 29 U/L <55 - 55 10/08 Specimen Type: PLASMA No comment entered. Ordering Provider: ANKUSH BOWMAN Report Released Date/Time: Sep 24, 2022 01:55 PM Reporting Lab: [facility] [address] Performing Lab: [facility] [address] [place] COMPREHE NSIVE METABOLI C PANEL+MG ASPARTATE AMINOTRANS FERASE [ENZYMATIC ACTIVITY/V OLUME] IN SERUM OR PLASMA 22 U/L <34 - 34 10/08 Specimen Type: PLASMA No comment entered. Ordering Provider: ANKUSH BOWMAN Report Released Date/Time: Sep 24, 2022 01:55 PM Reporting Lab: [facility] [address] Performing Lab: [facility] [address] [place] [facility] COMPREHE NSIVE METABOLI C PANEL+MG GLOMERULAR FILTRATION RATE/1.73 SQ M.PREDICTE D [VOLUME RATE/AREA] IN SERUM, PLASMA OR BLOOD BY CREATININE -BASED FORMULA (CKD-EPI) >90 60 10/08 Specimen Type: PLASMA No comment entered. Ordering Provider: ANKUSH BOWMAN Report Released Date/Time: Sep 24, 2022 01:55 PM Reporting Lab: [facility] [address] Performing Lab: [facility] [address] [facility] CYSTATIN C WITH EGFR CYSTATIN C [MASS/VOLU ME] IN SERUM OR PLASMA 1.38 mg/L 0.51 - 1.05 10/08 H Specimen Type: PLASMA No comment entered. Ordering Provider: ANKUSH BOWMAN Report Released Date/Time: Sep 24, 2022 01:55 PM Reporting Lab: [facility] [address] Performing Lab: [facility] [address] [facility] CYSTATIN C WITH EGFR CYSTATIN C AND GLOMERULAR FILTRATION RATE BY CYSTATIN-B ASED FORMULA PANEL - SERUM OR PLASMA 48 60 10/08 L Specimen Type: PLASMA No comment entered. Ordering Provider: ANKUSH BOWMAN Report Released Date/Time: Sep 24, 2022 01:55 PM Reporting Lab: [facility] [address] Performing Lab: [facility] [address] [facility] VIT D 25-OH,TO ZAMZAM 25-HYDROXY VITAMIN D3 [MASS/VOLU ME] IN SERUM OR PLASMA 54 ng/mL 12 - 50 10/08 H Specimen Type: SERUM No comment entered. Ordering Provider: ANKUSH BOWMAN Report Released Date/Time: Sep 24, 2022 01:55 PM Reporting Lab: [facility] [address] Performing Lab: [facility] [address] [facility] Encounters Combined list of: 1) Encounters from Department of Veterans Affairs facilities going back up to thelast 18 months. 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 Location Location Details Encounter Type Encounter Number Reason For Visit Attending Provider ADM Date DC Date Status Disposition Source [place] [facility] PRO PHONE CALL 11-20 MIN [id number] Diagnos is: ICD-10- CM Z73.6 Limitat ion of activit ies due to disabil ity<br/ > BOUSANGELI GRACIA AN P 04[facility] En[facility] [id number] [facility]24 [facility] [place] [facility] En[facility] [id number] 05/24 [facility] OFF/OP EST MAY X REQ PHY/QHP [id number] Diagnos is: ICD-10- CM G82.20 Paraple mary kay, unspeci fied
VIOLA YOON NDA 05/28 [facility] WHEELCHAIR MNGMENT TRAINING [id number] Diagnos is: ICD-10- CM Z73.6 Limitat ion of activit ies due to disabil ity<br/ > BOUSLOG,RY AN P 06/10 [facility] En[facility] [id number] 10/28 [facility] [place] [facility] Encounter [id number] 11/20 [facility] [place] [facility] Encounter [id number] 05/12 [facility] [place] [facility] Encounter [id number] 07/23 [facility] [place] [facility] Encounter [id number] DEE ANDERS 07/28 [facility] [place] [facility] Encounter [id number] 09/23 [facility] Social History Combined list of available smoking, tobacco, and other social history from 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 Social History Type Response Date Comment Sour e Tobacco smoking status [facility] NEVER USED 05/28/20 22 SADAF TREVINO [facility] This section is an empty social history section. [facility] Plan of Care List of future care activities from Department of 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 Additional future care activities may be listed in the Assessment and Plan section. Date/Time Care Activity Care Activity Detail Facili ty 09/24/2024 Consult Order PROSTHETICS REQU EST Cons [facility] Advance Directives List of completed, amended, or rescinded Advance Directives on record at Department of [facility] facilities. An actual copy of the Directive is not included. Date Advance Directive Provider Source 02/05/2023 ADVANCE DIRECTIVE DISCUSSION [facility]
--- OUTSIDE RECORDS SUMMARY | 2024-10-12 12:48 | XMS_ITS | Encounter Summary ---
Author Organization [facility] Address [address] [address] Care Team Providers Care Brewmaster Name Role Phone Franklin Squires MD Primary Care Provider Encounter Details Date Type Department Care Team (Late st Contact Info) Description 12/14/2014 [facility] Medicine [address] [place] [address] May Randle MD [address] [place] [address] DETAILED PRODUCT DESCRIPTION Social History Tobacco Use [...] on filedocumented in this encounter Care Teams Brewmaster Relationship Specialty Start Date End Date Franklin Squires MD [address] [facility] [place] [address] PCP - General Family Practice 03/08/16 documented as of this encounter
--- OUTSIDE RECORDS SUMMARY | 2024-10-12 12:48 | XMS_ITS | Encounter Summary ---
Author Organization [facility] Address [address] [address] Care Team Providers Care Facilities And Grounds Director Name Role Phone Franklin Squires MD Primary Care Provider Encounter Details Date Type Department Care Team (Late st Contact Info) Description 11/23/2015 Correspondence External to External, [place] [address] [facility] Social History Tobacco Use Types Packs/Day [...] filedocumented in this encounter Care Teams Facilities And Grounds Director Relationship Specialty Start Date End Date Franklin Squires MD [address] [place] [address] [place] [address] PCP - General Family Practice 03/08/16 documented as of this encounter
--- OUTSIDE RECORDS SUMMARY | 2024-10-12 12:48 | XMS_ITS | Clinical Summary ---
Author Organization [facility] Address [place], [place] [address] Care Team Providers Care 911 Emergency Services Dispatcher Name Role Phone Zelalem Cohen MD Unavailable [phone] May Randle) Unavailable Franklin Squires MD Primary Care Provider Fred Craft Unavailable [phone] Diane Charles MD Unavailable [phone] Julia Ware RN Unavailable Allergies Active [...] bedIndications:Non-heal ing surgical wound, subsequent encounter Drive [employer] 8 inch low loss mattress and 1/2 rails. Semi-electric bed. Length of need 6 weeks. Bed supply aide:no 1 unit 018 Active acetaminophen (TYLENOL [...] 60mm, Cut-to-Fit 01/16 - 2 11/18. Item #[id number]. 1 Each 11 021 Active ascorbic acid, [...] 09/27/2008 Assessment & Plan (01/19/2012 9:22 AM BUSINESS TRAINER): Orthopedics: Dr. Bright PM&R: Dr. May Randle [...] 04/16/2007 10/01/2007 Overview (04/16/2007): S/P IVC Filter [facility] (current) use of anticoagulants 02/19/2007 09/27/2008 Depressive disorder, not elsewhere classified 02/14/20 07 01/15/2018 Abnormality of gait 12/24/2006 09/27/20 08 Urinary tract infection, site not specified 12/24/2006 01/15/2018 BENIGN ESSENTIAL HYPERTENSION 12/24/2006 04/17/2016 Overview (12/24/2006): borderline Necrotizing fasciitis 2018 Type 2 diabetes mellitus Encounters Date Type Department Care Team Description 10/10/2024 Refill [facility] [address] [facility] [place] [address] Franklin Squires MD Refill Request (Bupropion, Potassium Chloride, Duloxetine) 10/09/2024 Anticoagulation (warfarin) [facility] [address] [facility] [place] [address] 1, [facility] Anticoagulation (ACELIS 2.3) 10/02/2024 2:00 PM BUSINESS TRAINER Nurse/Clinic Staff Only [facility] [address] [facility] [place] [address] Nurse/Clinic Staff Only (Suprapubic Cath change ) 10/02/2024 Travel 10/02/2024 Anticoagulation (warfarin) [facility] [address] [facility] [place] [address] 1, [facility] Anticoagulation (Acelis) 09/30/2024 Refill [facility] [address] [facility] [place] [address] Franklin Squires MD Refill Request (Oxycodone) 09/25/2024 3:19 PM BUSINESS TRAINER - 09/25/2024 11:59 PM BUSINESS TRAINER Hospital Encounter [facility] [address] [place] [address] Nighat Fierro MD 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); Chronic osteomyelitis of symphysis pubis (HC) 09/25/2024 Anticoagulation (warfarin) [facility] [address] [facility] [place] [address] 1, [facility] Anticoagulation (Acelis) 09/25/2024 Travel 09/22/2024 2:30 PM BUSINESS TRAINER - 09/22/2024 11:59 PM BUSINESS TRAINER Hospital Encounter [facility] 200 [facility] [place] [address] 09/22/2024 Travel 09/20/2024 Refill [facility] [address] [facility] [place] [address] Franklin Squires MD Refill Request (Atorvastatin) 09/18/2024 Anticoagulation (warfarin) [address] [address] 1, [facility] Anticoagulation ( ACELIS) 09/17/2024 11:29 AM BUSINESS TRAINER - 09/17/2024 11:59 PM BUSINESS TRAINER Hospital Encounter [address] [place] [address] Wound infection (Primary Dx) 09/17/2024 Travel 09/16/[address] [place] [address] Franklin Squires MD Anticoagulation (orders) 09/11/2024 Anticoagulation (warfarin) [address] [place] [address] , [facility] Anticoagulation (Acelis) 09/10/2024 1:56 PM CDT - 09/10/2024 11:59 PM CDT Hospital Encounter [address] [place] [address] Wound infection (Primary Dx) 09/10/2024 1:15 PM CDT Office Visit [address] [place] [address] Diane Charles MD Consult (Neurogenic bladder) 09/10/2024 Travel 09/07/2024 Hospital/[facility] Telepho ne Encounter [address] [place] [address] Yen Hernandez RN Pre Procedure (PVP) 09/07/[address] [place] [address] Franklin Squires MD Form (Case communication and Plan of Care.) 09/04/2024 Anticoagulation (warfarin) [address] [place] [address] , [facility] Anticoagulation (Acelis) 09/03/2024 1:53 PM CDT - 09/03/2024 11:59 PM CDT Hospital Encounter [facility] 200 [place] [address] Wound infection 09/03/2024 Travel 09/03/[address] [address] , [facility] Refill Request (Warfarin) 09/02/2024 Telephone [facility] [address] [place] [address] Corrie Gomez, VP & GENERAL COUNSEL Appointment 09/01/[address] [address] Franklin Squires MD Refill Request (Oxycodone) 08/30/[address] [address] Franklin Squires MD Refill Request (Famotidine, Aripiprazole) 08/29/2024 Anticoagulation (warfarin) [address] [address] 1, [facility] Anticoagulation (Acelis) 08/28/[address] [address] Franklin Squires MD Form (Case communication) 08/27/2024 11:25 AM CDT - 08/27/2024 11:59 PM CDT Hospital Encounter [facility] [address] [place] [address] Wound infection (Primary Dx) 08/27/2024 Travel 08/25/2024 Hospital/[facility] Telepho ne Encounter [facility] [address] [facility] [place] [address] Yen Hernandez, VALERIE Pre Procedure (PVP) 08/21/2024 1:00 PM CDT Nurse/Clinic Staff Only [address] [address] Nurse/Clinic Staff Only 08/21/2024 Travel 08/21/2024 Anticoagulation (warfarin) [address] [address] , [facility] Anticoagulation (Acelis) 08/20/2024 11:27 AM CDT - 08/20/2024 11:59 PM CDT Hospital Encounter [address] [place] [address] Wound infection (Primary Dx) 08/19/2024 3:00 PM CDT Nurse/Clinic Staff Only [address] [address] Nurse/Clinic Staff Only (Cath Change ) 08/19/[address] [address] Diane Charles MD Appointment 08/19/2024 Travel 08/18/[address] [address] Franklin Squires MD Questions 08/14/2024 Nurse Triage [address] [address] Franklin Squires MD Catheter Problem 08/14/2024 Anticoagulation (warfarin) [address] [address] 1, [facility] Anticoagulation (Acelis) 08/13/2024 11:23 AM CDT - 08/13/2024 11:59 PM CDT Hospital Encounter [facility] 200 [facility] [place] [address] Wound infection 08/13/2024 Travel 08/13/2024 Hospital/[facility] Telepho ne Encounter [address] [place] [address] Yen Hernandez, VALERIE Pre Procedure (PVP) 08/07/2024 Anticoagulation (warfarin) [address] [place] [address] 1, [facility] Anticoagulation (Acelis) 08/06/2024 11:27 AM CDT - 08/06/2024 11:59 PM CDT Hospital Encounter [address] [place] [address] Wound infection (Primary Dx) 08/06/2024 Travel 08/06/2024 Hospital/[facility] Telepho ne Encounter [facility] [place] [address] Yen Hernandez RN Pre Procedure (PVP) 08/04/[address] [facility] [place] [address] Franklin Squires MD Form 07/31/2024 Anticoagulation (warfarin) [address] [place] [address] 1, [facility] Anticoagulation (Acelis) 07/30/2024 11:25 AM CDT - 07/30/2024 11:59 PM CDT Hospital Encounter [address] [place] [address] Wound infection (Primary Dx) 07/30/2024 Hospital/[facility] Telepho ne Encounter [address] [place] [address] Yen Hernandez, RN Pre Procedure (PVP) 07/29/2024 1:30 PM CDT Nurse/Clinic Staff Only [facility] [address] [place] [address] Nurse/Clinic Staff Only (Suprapubic Cath) 07/29/[address] [address] Franklin Squires MD Refill Request (Oxycodone) 07/29/2024 Travel 07/27/2024 Anticoagulation (warfarin) [address] [address] [place] [address] [facility] Anticoagulation (Acelis) 07/24/[address] [address] Franklin Squires MD Anticoagulation (new med) 07/23/2024 8:46 AM CDT - 07/23/2024 2:33 PM CDT Hospital Encounter [facility] 200 [place] [address] Yudith Mcgraw NP Wound infection (Primary Dx) Discharge Disposition: Home Health 07/23/2024 Orders Only [facility] 200 [place] [address] Yudith Mcgraw NP 1 scan: INFUSION CEFEPIME 2 MG 07/23/2024 Travel 07/22/2024 Telephone [facility] 200 [place] [address] Yen Hernandez, RN Appointment 07/22/2024 Telephone [facility] 200 [place] [address] Jennyfer Penny RN 07/15/2024 Telephone [facility] 100 [place] [address] Franklin Squires MD Anticoagulation (Order renewal) 07/15/2024 Anticoagulation (warfarin) [address] [place] [address] 1, [facility] Anticoagulation (Acelis ) 07/14/[address] [place] [address] Franklin Squires MD Form (Case Communication- Major drug interactions-( Warfarin) - Home Health Certification and Plan of Care - 07/08/2024-09/05/2024) 07/14/[address] [place] [address] Franklin Squires MD Refill Request (Bupropion) from Last 3 Months Immunizations Name Administration Dates Next Due COVID-19 vaccine (PraXcell-Bio NTech 30mcg/0.3mL) 12YO+ BIVALENT PF, MDV 10/22/2022 COVID-19 vaccine (PraXcell-Bio NTech 30mcg/0.3mL) PF, MDV 01/25/2021,01/02/2021 Influenza A [...] st Contact Info) Description 10/22/2024 2:00 PM BUSINESS TRAINER Nurse/Clinic Staff Only [address] [address] 10/30/2024 11:30 AM BUSINESS TRAINER Office Visit [address] [address] Franklin Squires MD [address] [place] [address] 11/12/2024 2:00 PM BUSINESS TRAINER Nurse/Clinic Staff Only [address] [address] Health Maintenance Due Date Last Done Comments [...] Associated Diagnosis Comments HOME MONITOR AC Routine 10/09/2024 12:00 AM BUSINESS TRAINER HOME MONITOR AC Routine 10/02/2024 12:[address] PELVIS W Routine 09/25/2024 3:42 PM BUSINESS TRAINER 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) HOME MONITOR AC Routine 09/25/2024 12:00 AM BUSINESS TRAINER HOME MONITOR AC Routine 09/18/2024 12:00 AM BUSINESS TRAINER CBC WITH AUTO DIFFERENTIAL STAT 09/17/2024 11:43 AM BUSINESS TRAINER CBC WITH AUTO DIFFERENTIAL STAT 09/17/2024 11:43 AM BUSINESS TRAINER SEDIMENTATION RATE STAT 09/17/2024 11 :43 AM BUSINESS TRAINER C-REACTIVE PROTEIN STAT 09/17/2024 11 :43 AM BUSINESS TRAINER HOME MONITOR AC Routine 09/11/2024 12:00 AM [...] PORTABLE JORGE LUIS 07/23/2024 10:04 AM CDT SCAN-OPERATIVE/PROCED URE REPORT 07/23/2024 12:00 AM CDT HOME MONITOR AC Routine 07/15/2024 12:00 AM CDT from Last 3 Months Results * HOME MONITOR AC (10/09/2024 12:00 AM BUSINESS TRAINER) Only the most recent of13 resultswithin the time period is included. PATIENT REPORTED HOME INR 2.3 2.00 - 3.00 [facility] 10/09/2024 Franklin Squires MD OTHER Performing Organization Address City/State/[facility] Co ms Phone Number [facility] [address] [place] [address] * CT PELVIS W (09/25/2024 3:42 PM BUSINESS TRAINER) Anatomical Region Laterality Modality Pelvis, Abdomen, PROSTATE, BLADDER Computed Tomography 09/28/2024 5:17 AM BUSINESS TRAINER Impressions 09/28/2024 5:17 AM BUSINESS TRAINER 1. Left decubitus ulcer fairly similar in [...] AM (Electronically Signed) Narrative 09/28/2024 5:17 AM BUSINESS TRAINER For Patients: As a result of the [...] * (ABNORMAL) SEDIMENTATION RATE (09/17/2024 11:43 AM BUSINESS TRAINER) Only the most recent of2 resultswithin the time period is included. [facility] SEDIMENTATION RATE 33(H) <20 mm/hr 2023 11:54 AM BUSINESS TRAINER [facility] Blood BLOOD SPECIMEN / Unknown Line/Port / Unknown 09/17/2024 11:43 AM BUSINESS TRAINER 09/17/2024 11:46 AM BUSINESS TRAINER Yudith Mcgraw NP HEMATOLOGY [facility] [address] [place] [address] * (ABNORMAL) CBC WITH AUTO DIFFERENTIAL (09/17/2024 11:43 AM BUSINESS TRAINER) Only the most recent of6 resultswithin the time period is included. [facility] WHITE BLOOD COUNT 7.2 4.5 - 11.0 thou/cu mm 09/17/2024 11:49 AM [facility] RED BLOOD COUNT 4.13(L) 4.30 - 5.90 mil/cu mm 09/17/2024 11:49 AM [facility] HEMOGLOBIN 12.4(L) 13.5 - 17.5 g/dL 09/17/2024 11:49 AM [facility] HEMATOCRIT 39.4 37.0 - 53.0 % 09/17/2024 11:49 AM [facility] MCV 95 80 - 100 fL 09/17/2024 11:49 AM [facility] MCH 30.0 26.0 - 34.0 pg 09/17/2024 11:49 AM [facility] MCHC 31.5(L) 32.0 - 36.0 g/dL 09/17/2024 11:49 AM [facility] RDW 14.6 11.5 - 15.5 % 09/17/2024 11:49 AM [facility] PLATELET COUNT 155 140 - 440 thou/cu mm 09/17/2024 11:49 AM [facility] MPV 10.6 6.5 - 11.0 fL 09/17/2024 11:49 AM [facility] % NEUT 60.5 % 09/17/2024 11:49 AM [facility] % LYMPH 27.8 % 09/17/2024 11:49 AM [facility] % MONO 9.6 % 09/17/2024 11:49 AM [facility] % EOS 1.8 % 09/17/2024 11:49 AM [facility] % BASO 0.3 % 09/17/2024 11:49 AM [facility] ABSOLUTE NEUTROPHILS 4.4 1.7 - 7.0 thou/cu mm 09/17/2024 11:49 AM [facility] ABSOLUTE LYMPHOCYTES 2.0 0.9 - 2.9 thou/cu mm 09/17/2024 11:49 AM [facility] ABSOLUTE MONOCYTES 0.7 <0.9 thou/cu mm 09/17/2024 11:49 AM [facility] ABSOLUTE EOSINOPHILS 0.1 <0.5 thou/cu mm 09/17/2024 11:49 AM BUSINESS TRAINER [facility] ABSOLUTE BASOPHILS 0.0 <0.3 thou/cu mm 09/17/2024 11:49 AM [facility] Blood BLOOD SPECIMEN / Unknown Line/Port / Unknown 09/17/2024 11:43 AM BUSINESS TRAINER 09/17/2024 11:46 AM BUSINESS TRAINER Narrative [facility] - 09/17/2024 11:49 AM BUSINESS TRAINER Picc line Picc line Yudith Mcgraw VP & GENERAL COUNSEL HEMATOLOGY Performing Organization Address City/[facility]/ZIP Co de Phone Number [facility] [address] [place] [address] * (ABNORMAL) C-REACTIVE PROTEIN (09/17/2024 11:43 AM BUSINESS TRAINER) Only the most recent of2 resultswithin the time period is included. C-REACTIVE PROTEIN 1.2(H) <0.5 mg/dL 09/17/2024 12:04 PM [facility] Blood BLOOD SPECIMEN / Unknown Line/Port / Unknown 09/17/2024 11:43 AM BUSINESS TRAINER 09/17/2024 11:46 AM BUSINESS TRAINER Yudith Mcgraw NP CHEMISTRY Performing Organization Address City/[facility]/ZIP Co de Phone Number [facility] [address] [place] [address] * (ABNORMAL) BASIC METABOLIC PANEL (09/03/2024 2:00 PM CDT) Only the most recent of4 resultswithin the time period is included. SODIUM 136 136 - 145 mmol/L 09/03/2024 2:50 PM CDT [facility] POTASSIUM 3.9 3.5 - 5.1 mmol/L 09/03/2024 2:50 PM CDT [facility] CHLORIDE 97(L) 98 - 107 mmol/L 09/03/2024 2:50 PM T [facility] CO2,TOTAL 28 22 - 29 mmol/L 09/03/2024 2:50 PM T [facility] ANION GAP 11 5 - 18 09/03/2024 2:50 PM T [facility] GLUCOSE 126(H) 70 - 99 mg/dL 09/03/2024 2:50 PM T [facility] CALCIUM 9.6 8.8 - 10.2 mg/dL 09/03/2024 2:50 PM [facility] BUN 21 8 - 23 mg/dL 09/03/2024 2:50 PM [facility] CREATININE 0.69(L) 0.70 - 1.20 mg/dL 09/03/2024 2:50 PM [facility] BUN/CREAT RATIO 30(H) - 2:50 PM [facility] eGFR >90 >90 mL/min/1.7 3m2 09/03/2024 2:50 PM [facility] Comment:As of 2022, eG FR is calculated by the CKD-EPI creatinine equation without race adjustment. eGFR can be influenced by muscle mass, exercise, and diet. The reported eGFR is an estimation only and is only applicable if the renal function is stable. Blood BLOOD SPECIMEN / Unknown Line/Port / Unknown 09/03/2024 2:00 PM CDT 09/03/2024 2:37 PM CDT Yudith Mcgraw NP CHEMISTRY [facility] [address] [place] [address] * EXTRA TUBE LAVENDER (07/23/2024 10:59 AM CDT) Blood BLOOD SPECIMEN / Unknown Extra Tube / Unknown 07/23/2024 10:59 AM CDT 07/23/2024 11:06 AM CDT Doctor Unknown LABORATORY [facility] [address] [place] [address] * EXTRA TUBE BLUE (07/23/2024 10:59 AM CDT) Blood BLOOD SPECIMEN / Unknown Extra Tube / Unknown 07/23/2024 10:59 AM CDT 07/23/2024 11:06 AM CDT Doctor Unknown LABORATORY [facility] [address] [place] [address] * XR CHEST 1 VIEW PORTABLE (07/23/2024 [...] an unspecified provider. Other Clinical Staff OTHER from Last 3 Months Additional Health [...] 12 months since positive culture): resides in acute/terminal superintendent care, receiving hemodialysis, has chronic open wounds/skin damage, has long-term percutaneous indwelling medical devices Exclusions for nares collection (if <12 months since positive culture) include all of the previous exclusions plus patients on antibiotics 7 days prior to collection 03/13/2018 03/20/2024 Advance Directives Documents on File Type Date Recorded Patient Portable Sawyer Expl anation Treatment Guidelines 08/04/2024 Healthcare Directive [...] Code Status Discussion: Reviewed Preferences Care Teams 911 Emergency Services Dispatcher Relationship Specialty Start Date End Date Franklin Squires MD [address] [place] [address] PCP - General Family Practice 10/18/15 Zelalem Cohen MD Physical Therapist 03/13/12 May Randle Md, MD Physical Medicine and Rehabilitation 03/13/12 Luana, FAUSTINO Krueger [address] [place] [address] Legal Financial Specialist 05/03/17 Diane Charles MD [address] [place] [address] Surgery - Urology 01/17/23 Julia Ware, RN [address] [place] [address] Registered Nurse 07/17/23
--- OUTSIDE RECORDS SUMMARY | 2024-10-12 12:48 | XMS_ITS | Encounter Summary ---
Author Organization [facility] Address [address], [place] [address] Care Team Providers Care Memory Care Program Resident Name Role Phone Franklin Squires MD Primary Care Provider [phone] Encounter Details Date Type Department Care Team (Late st Contact Info) Description 09/17/2013 Correspondence External to External, [place] [address] EMPOWERMENT RULES Social History Tobacco Use Types [...] External, Provider - 09/17/2013 12:00 AM CST COVER MAKER documented in this encounter Plan of Treatment Not on file documented as of this encounter Visit Diagnoses Not on filedocumented in this encounter Care Teams Memory Care Program Resident Relationship Specialty Start Date End Date Franklin Squires MD [address] [facility] [place] [address] PCP - General Family Practice 03/08/16 documented as of this encounter
--- OUTSIDE RECORDS SUMMARY | 2024-10-12 12:48 | XMS_ITS | Encounter Summary ---
Author Organization [facility] Address [address] [address] Care Team Providers Care Manager Semiconductor Name Role Phone Franklin Squires MD Primary Care Provider [phone] Encounter Details Date Type Department Care Team (Latest Contact Info) Description 12/11/2017 Correspondence Physiatry/Physical Medicine at [facility] [address] [facility] [place] [address] May Randle MD [address] [place] [address] [employer] Social History Tobacco Use [...] filedocumented in this encounter Care Teams Manager Semiconductor Relationship Specialty Start Date End Date Franklin Squires MD [address] [place] [address] [place] [address] PCP - General Family Practice 03/08/16 documented as of this encounter
--- OUTSIDE RECORDS SUMMARY | 2024-10-12 12:48 | XMS_ITS | Encounter Summary ---
Author Organization [facility] Address [address], [place] [address] Care Team Providers Care Clerical Supervisor Name Role Phone Franklin Squires MD Primary Care Provider Encounter Details Date Type Department Care Team (Late st Contact Info) Description 03/11/2014 Correspondence [facility] [address] [facility] [place] [address] Zelalem Cohen, DO [address] [place] [address] EMPI Social History Tobacco Use Types Packs/Day [...] on filedocumented in this encounter Care Teams Clerical Supervisor Relationship Specialty Start Date End Date Franklin Squires MD 100 [facility] [place] [address] PCP - General Family Practice 03/08/16 documented as of this encounter
--- OUTSIDE RECORDS SUMMARY | 2024-10-12 12:48 | XMS_ITS | Encounter Summary ---
Author Organization [facility] [address] [address] Care Team Providers Care Tool Programmer Name Role Phone Franklin Squires MD Primary Care Provider Encounter Details Date Type Department Care Team (Late st Contact Info) Description 07/08/2015 Correspondence [facility] Physical Therapy [address] [place] [address] Trudi Raymundo, PT [address] [place] [address] ADDENDUM FOR LETTER OF MEDICAL NECESSITY Social [...] filedocumented in this encounter Care Teams Tool Programmer Relationship Specialty Start Date End Date [facility] Squires MD [address] [facility] [place] [address] PCP - General Family Practice 03/08/16 documented as of this encounter
--- OUTSIDE RECORDS SUMMARY | 2024-10-12 12:48 | XMS_ITS | Encounter Summary ---
Author Organization formerly [facility] [address], [place] [address] Care Team Providers Care Certified Appliance Service Technician Name Role Phone Franklin Squires MD Primary Care Provider [phone] Encounter Details Date Type Department Care Team (Late st Contact Info) Description 10/26/2013 Correspondence [facility] Physical Therapy [address] [place] [address] Trudi Raymundo, PT [address] [place] [address] LETTER OF MEDICAL NECESSITY Social History Tobacco [...] PT - 10/26/2013 12:00 AM CST E ENGINEER documented in this encounter Plan of Treatment Not on file documented as of this encounter Visit Diagnoses Not on filedocumented in this encounter Care Teams Certified Appliance Service Technician Relationship Specialty Start Date End Date Franklin Squires MD [address] [facility] [place] [address] PCP - General Family Practice 03/08/16 documented as of this encounter
--- OUTSIDE RECORDS SUMMARY | 2024-10-12 12:48 | XMS_ITS | Encounter Summary ---
Author Organization [facility] Address [address] [address] Care Team Providers Care Area Field Manager Name Role Phone Franklin Squires MD [...] on filedocumented in this encounter Care Teams Area Field Manager Relationship Specialty Start Date End Date Franklin Squires MD 100 [facility] [address] PCP - General Family Practice 03/08/16 documented as of this encounter
--- OUTSIDE RECORDS SUMMARY | 2024-10-12 12:48 | XMS_ITS | Encounter Summary ---
Author Organization [facility] Address [address], [place] [address] Care Team Providers Care Change House Attendant Name Role Phone Franklin Squires MD [...] on filedocumented in this encounter Care Teams Change House Attendant Relationship Specialty Start Date End Date Franklin Squires MD 100 [facility] [place] [address] PCP - General Family Practice 03/08/16 documented as of this encounter
--- OUTSIDE RECORDS SUMMARY | 2024-10-12 12:48 | XMS_ITS | Encounter Summary ---
Author Organization [facility] Address [address] [address] Care Team Providers Care Pressroom Worker Name Role Phone Franklin Squires MD Primary Care Provider Encounter Details Date Type Department Care Team (Late st Contact Info) Description 12/16/2014 Correspondence External to External, [place] [address] MEDICARE PLAN OF CARE RECERT Social History [...] on filedocumented in this encounter Care Teams Pressroom Worker Relationship Specialty Start Date End Date Franklin Squires MD [address] [place] [address] [facility] [place] [address] PCP - General Family Practice 03/08/16 documented as of this encounter
--- OUTSIDE RECORDS SUMMARY | 2024-10-12 12:48 | XMS_ITS | Encounter Summary ---
Author Organization [facility] Address [address], [place] [address] Care Team Providers Care Respiratory Therapy Manager Name Role Phone Franklin Squires MD Primary Care Provider [phone] Encounter Details Date Type Department Care Team (Late st Contact Info) Description 01/06/2016 Correspondence [facility] Radiology [address] [place] [address] Radiology, Provider MRI SAFETY SHEET AND COMPATIBILITY [...] on filedocumented in this encounter Care Teams Respiratory Therapy Manager Relationship Specialty Start Date End Date Franklin Squires MD [address] [place], [place] [address] [address] PCP - General Family Practice 03/08/16 documented as of this encounter
--- OUTSIDE RECORDS SUMMARY | 2024-10-12 12:48 | XMS_ITS | Encounter Summary ---
Author Organization [facility] Address [address], [place] [address] Care Team Providers Care Junior Financial Analyst Name Role Phone Franklin Squires MD Primary Care Provider Encounter Details Date Type Department Care Team (Late st Contact Info) Description 09/07/2014 Correspondence [facility] Radiology [address] [place] [address] Radiology, Provider MRI SAFETY SHEET AND COMPATIBILITY [...] filedocumented in this encounter Care Teams Junior Financial Analyst Relationship Specialty Start Date End Date Franklin Squires MD [address] [place], [place] [address] [address] PCP - General Family Practice 03/08/16 documented as of this encounter
--- OUTSIDE RECORDS SUMMARY | 2024-10-12 12:48 | XMS_ITS | Encounter Summary ---
Author Organization [facility] [address] [address] Care Team Providers Care Warble Saw Operator Name Role Phone Franklin Squires MD Primary Care Provider Encounter Details Date Type Department Care Team (Late st Contact Info) Description 11/10/2014 Correspondence [facility] Physical Therapy [address] [place] [address] Trudi Raymundo, PT [address] [place] [address] LETTER OF MEDICAL NECESSITY Social History Tobacco [...] on filedocumented in this encounter Care Teams Warble Saw Operator Relationship Specialty Start Date End Date Franklin Squires MD 100 [facility] [place] [address] PCP - General Family Practice 03/08/16 documented as of this encounter
--- OUTSIDE RECORDS SUMMARY | 2024-10-12 12:48 | XMS_ITS | Encounter Summary ---
Author Organization [facility] Address [address] [address] Care Team Providers Care Receiving Associate Name Role Phone Franklin Squires MD Primary Care Provider Encounter Details Date Type Department Care Team (Late st Contact Info) Description 05/04/2014 Correspondence [facility] 401 Physical Medicine 401 [facility] [place] [address] May Randle MD [address] [place] [address] LETTER OF MEDICAL NECESSITY FOR A WHEELCHAIR [...] on filedocumented in this encounter Care Teams Receiving Associate Relationship Specialty Start Date End Date Franklin Squires MD 100 [facility] [place] [address] PCP - General Family Practice 03/08/16 documented as of this encounter
--- OUTSIDE RECORDS SUMMARY | 2024-10-12 12:48 | XMS_ITS | Encounter Summary ---
Author Organization [facility] Address [address], [place] [address] Care Team Providers Care Rn Diabetes Educator Name Role Phone Franklin Squires MD Primary Care Provider [phone] Encounter Details Date Type Department Care Team (Late st Contact Info) Description 07/28/2014 Outside Hospital External to External, Provider No address [address] ER VISIT/TRANSFER Social History Tobacco Use [...] filedocumented in this encounter Care Teams Rn Diabetes Educator Relationship Specialty Start Date End Date Franklin Squires MD 100 [facility] [place] [address] PCP - General Family Practice 03/08/16 documented as of this encounter
--- OUTSIDE RECORDS SUMMARY | 2024-10-12 12:48 | XMS_ITS | Encounter Summary ---
Author Organization [facility] Address [address] [address] Care Team Providers Care Steam Brush Operator Name Role Phone Franklin Squires MD Primary Care Provider Encounter Details Date Type Department Care Team (Late st Contact Info) Description 06/11/2014 Correspondence [facility] 401 Physical Medicine 401 [facility] [place] [address] May Randle MD [address] [place] [address] [facility] Social History Tobacco Use Types Packs/Day [...] on filedocumented in this encounter Care Teams Steam Brush Operator Relationship Specialty Start Date End Date Franklin Squires MD 100 [facility] [place] [address] PCP - General Family Practice 03/08/16 documented as of this encounter
--- OUTSIDE RECORDS SUMMARY | 2024-10-12 12:48 | XMS_ITS ---
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
--- OUTSIDE RECORDS SUMMARY | 2024-10-12 12:48 | XMS_ITS | Encounter Summary ---
Author Organization [facility] Address [address], [place] [address] Care Team Providers Care Acquisition Lead Name Role Phone Franklin Squires MD Primary Care Provider [phone] Encounter Details Date Type Department Care Team (Late st Contact Info) Description 12/16/2013 Correspondence [facility] Radiology [address] [place] [address] Radiology, Provider MRI SAFETY SHEET AND COMPATIBILITY [...] Radiology, Provider - 12/16/2013 12:00 AM CST T AID TEACHER documented in this encounter Plan of Treatment Not on file documented as of this encounter Visit Diagnoses Not on filedocumented in this encounter Care Teams Acquisition Lead Relationship Specialty Start Date End Date Franklin Squires MD 100 [facility] [place] [address] PCP - General Family Practice 03/08/16 documented as of this encounter
--- OUTSIDE RECORDS SUMMARY | 2024-10-12 12:48 | XMS_ITS | Encounter Summary ---
Author Organization [facility] Address [address], [place] [address] Care Team Providers Care Wood Fence Installer Name Role Phone Frankiln Squires MD Primary Care Provider Encounter Details Date Type Department Care Team (Late st Contact Info) Description 08/20/2014 Outside Hospital External to [facility]P Social History Tobacco Use Types [...] filedocumented in this encounter Care Teams Wood Fence Installer Relationship Specialty Start Date End Date Franklin Squires MD [address] [place], [place] [address] [address] PCP - General Family Practice 03/08/16 documented as of this encounter
--- OUTSIDE RECORDS SUMMARY | 2024-10-12 12:48 | XMS_ITS | Encounter Summary ---
Author Organization [facility] Address [address] [address] Care Team Providers Care Manager Loss Prevention Name Role Phone Franklin Squires MD Primary Care Provider [phone] Encounter Details Date Type Department Care Team (Late st Contact Info) Description 06/07/[address] [facility] Radiology [address] [place] [address] Radiology, Provider MRI SAFETY SHEET AND COMPATIBILITY [...] filedocumented in this encounter Care Teams Manager Loss Prevention Relationship Specialty Start Date End Date Franklin Squires MD [address] [place], [place] [address] [address] PCP - General Family Practice 03/08/16 documented as of this encounter
--- OUTSIDE RECORDS SUMMARY | 2024-10-12 12:48 | XMS_ITS | Encounter Summary ---
Author Organization [facility] Address [address], [place] [address] Care Team Providers Care Marketing Content Manager Name Role Phone Franklin Squires MD Primary Care Provider [phone] Encounter Details Date Type Department Care Team [...] filedocumented in this encounter Care Teams Marketing Content Manager Relationship Specialty Start Date End Date Franklin Squires MD 100 [facility] [place] [address] PCP - General Family Practice 03/08/16 documented as of this encounter
--- OUTSIDE RECORDS SUMMARY | 2024-10-12 12:48 | XMS_ITS | Encounter Summary ---
Author Organization [facility] [address] [address] Care Team Providers Care Network Lead Name Role Phone Franklin Squires MD Primary Care Provider Encounter Details Date Type Department Care Team (Late st Contact Info) Description 02/05/2014 Correspondence [facility] Physical Therapy [address] [place] [address] Trudi Raymundo, PT [address] [place] [address] LETTER OF MEDICAL NECESSITY FOR A WHEELCHAIR [...] filedocumented in this encounter Care Teams Network Lead Relationship Specialty Start Date End Date Franklin Squires MD 100 [facility] [place] [address] PCP - General Family Practice 03/08/16 documented as of this encounter
--- OUTSIDE RECORDS SUMMARY | 2024-10-12 12:48 | XMS_ITS | Encounter Summary ---
Author Organization [facility] Address [address] [address] Care Team Providers Care Spool Sander Name Role Phone Franklin Squires MD Primary Care Provider Encounter Details Date Type Department Care Team (Late st Contact Info) Description 08/20/2014 Outside Hospital External to [facility] HOSP-ADMIT H/P Social History Tobacco Use [...] on filedocumented in this encounter Care Teams Spool Sander Relationship Specialty Start Date End Date Franklin Squires MD 100 [facility] [address] PCP - General Family Practice 03/08/16 documented as of this encounter
--- OUTSIDE RECORDS SUMMARY | 2024-10-12 12:48 | XMS_ITS | Encounter Summary ---
Author Organization [facility] Address [address], [place] [address] Care Team Providers Care Embossed Or Impressed Lettering Painter Name Role Phone Franklin Squires MD Primary Care Provider [phone] Encounter Details Date Type Department Care Team (Latest Contact Info) Description 06/04/2014 Correspondence [facility] 401 Interventional Pain Management 401 [facility] [place] [address] Zelalem Cohen, DO [address] [place] [address] MEDICAID PT INFORMATION EMPI RECOVERY Social History [...] on filedocumented in this encounter Care Teams Embossed Or Impressed Lettering Painter Relationship Specialty Start Date End Date Franklin Squires MD 100 [facility] [address] PCP - General Family Practice 03/08/16 documented as of this encounter
--- OUTSIDE RECORDS SUMMARY | 2024-10-12 12:48 | XMS_ITS | Encounter Summary ---
Author Organization [facility] Address [address] [address] Care Team Providers Care Live Study Manager Name Role Phone Franklin Squires MD Primary Care Provider Encounter Details Date Type Department Care Team (Late st Contact Info) Description 02/09/2016 Correspondence [facility] 401 NeuroSurgery 401 [facility]. [place], [place] [id number] Jodi Aguila PA-C [address] [address] PATIENT LIFT PRESCRIPTION Social History Tobacco Use [...] on filedocumented in this encounter Care Teams Live Study Manager Relationship Specialty Start Date End Date Franklin Squires MD 100 [facility] [place] [id number] PCP - General Family Practice 03/08/16 documented as of this encounter
--- OUTSIDE RECORDS SUMMARY | 2024-10-12 12:48 | XMS_ITS | Clinical Summary ---
Author Organization [facility] Address [address] [address] Care Team Providers Care Candlemaker Name Role Phone Franklin Squires MD Primary Care Provider [phone] Source Comments You are receiving this document [...] for each transition of care or referral. [employer] Allergies Active Allergy Reactions Criticality Noted Date [...] Comments Blood Pressure 120/63 01/18/2022 12:59 PM PROFESSIONAL ENGINEER Pulse 87 01/18/2022 12:59 PM PROFESSIONAL ENGINEER Temperature 36.3 C (97.4 F) 01/18/2022 12:59 PM PROFESSIONAL ENGINEER Respiratory Rate 16 05/24/2016 4:27 PM CDT [...] this topic Medical Devices Implanted Type Area Bowl Topper Device Identifier Shelf Expiration Date Model / Serial / Lot [id number] 4ml Tisseel Explanted:([place] ntity not on file) BIOLOGIC N/A: NECK Lynne Fenwall 09/10/2011 [id number] / [id number] / [id number] Description:posterior Cath Intrathecal Indura - [id number] Implanted:Qty: 1 on 05/09/2010 at [facility] DEVICE Right: LUMBAR SPINE Work Inspire 01/18/2012 8709 / N/A / [id number] Cath Intrathecal Indura - [id number] Implanted:Qty: 1 on 05/29/2010 at [facility] DEVICE Alp[employer]ure [employer] 8709 / / Scr Indira Conic 7.3x80 - [id number] Implanted:Qty: 1 on 03/13/2011 at [facility] DEVICE Right: FEMUR DISTAL Synthes [employer] 0 / NONE / NONE Plt Lcp Cndl Rt 4.5x170 6h - [id number] Implanted:Qty: 1 on 03/13/2011 at [facility] DEVICE Right: FEMUR DISTAL [employer] 222.656 / NONE / NONE Description:6 hole 170mm rig ht 4.5mm lcp condylar plate Scr Didier Ss Sftp 4.5x40 - [id number] Implanted:Qty: 1 on 03/13/2011 at [facility] DEVICE Left: FEMUR DISTAL [employer] 214.840 / NONE / NONE Scr Didier Ss Sftp 4.5x50 - [id number] Implanted:Qty: 1 on 03/13/2011 at [facility] DEVICE Left: FEMUR DISTAL [employer] 214.850 / NONE / NONE Scr Indira Lk 5.0x80 - [id number] Implanted:Qty: 2 on 03/13/2011 at [facility] DEVICE Left: FEMUR DISTAL [employer] 02.205.08 0 / NONE / NONE Scr Indira Lk 5.0x85 - [id number] Implanted:Qty: 2 on 03/13/2011 at [facility] DEVICE Left: FEMUR DISTAL [employer] 02.205.08 5 / NONE / NONE Scr Lk Sftp T25 5.0x50 - [id number] Implanted:Qty: 1 on 03/13/2011 at [facility] DEVICE Left: FEMUR DISTAL [employer] 212.219 / NONE / NONE Scr Lk Sftp T25 5.0x60 - [id number] Implanted:Qty: 1 on 03/13/2011 at [facility] DEVICE Left: FEMUR DISTAL [employer] 212.221 / NONE / NONE Scr Indira Conic 7.3x85 - [id number] Implanted:Qty: 1 on 03/13/2011 at [facility] DEVICE Left: FEMUR DISTAL [employer] 02.207.28 5 / NONE / NONE Plt Lcp Cndl Lt 4.5x170 6h - [id number] Implanted:Qty: 1 on 03/13/2011 at [facility] DEVICE Left: FEMUR DISTAL [employer] 222.657 / NONE / NONE Description:6 hole 170mmleng th left 4.5mm lcp condylar plate. Scr Didier Sftp 3.5x60 F-Thrd - [id number] Implanted:Qty: 1 on 03/13/2011 at [facility] DEVICE Left: TIBIA PROXIMAL [employer]ynthes [employer] 204.860 / NONE / NONE Scr Star Lk Sftp 3.5x32 - [id number] Implanted:Qty: 1 on 03/13/2011 at [facility] DEVICE Left: TIBIA PROXIMAL [employer] 212.112 / NONE / NONE Scr Star Lk Sftp 3.5x55 - [id number] Implanted:Qty: 2 on 03/13/2011 at [facility] DEVICE Left: TIBIA PROXIMAL [employer] 212.123 / NONE / NONE Scr Star Lk Sftp 3.5x60 - [id number] Implanted:Qty: 2 on 03/13/2011 at [facility] DEVICE Left: TIBIA PROXIMAL [employer] 212.124 / NONE / NONE Plt Lcp M/Prox Lt 3.5x94 4h - [id number] Implanted:Qty: 1 on 03/13/2011 at [facility] DEVICE Left: TIBIA PROXIMAL [employer] 239.955 / NONE / NONE Scr Didier Ss Sftp 4.5x36 - [id number] Implanted:Qty: 1 on 03/13/2011 at [facility] DEVICE Right: FEMUR DISTAL [employer] 214.836 / NONE / NONE Scr Didier Ss Sftp 4.5x44 - [id number] Implanted:Qty: 1 on 03/13/2011 at [facility] DEVICE Right: FEMUR DISTAL [employer] 214.844 / NONE / NONE Scr Indira Lk 5.0x75 - [id number] Implanted:Qty: 1 on 03/13/2011 at [facility] DEVICE Right: FEMUR DISTAL [employer] 02.205.07 5 / NONE / NONE Scr Indira Lk 5.0x85 - [id number] Implanted:Qty: 2 on 03/13/2011 at [facility] DEVICE Right: FEMUR DISTAL [employer] 02.205.08 5 / NONE / NONE Scr Lk Sftp T25 5.0x44 - [id number] Implanted:Qty: 1 on 03/13/2011 at [facility] DEVICE Right: FEMUR DISTAL [employer] 212.216 / NONE / NONE Scr Lk Sftp T25 5.0x65 - [id number] Implanted:Qty: 1 on 03/13/2011 at [facility] DEVICE Right: FEMUR DISTAL [employer] 212.222 / NONE / NONE Plt Lp T Ti Str 4h - [id number] Implanted:Qty: 3 on 07/28/2014 by Cooper Shelley MD at [facility] DEVICE Right: SKULL [employer]ynthes [employer] 421.504 / / Scr Matrix Sfdr 4mm - [id number] Implanted:Qty: 6 on 07/28/2014 by Cooper Shelley MD at [facility] DEVICE Right: SKULL [employer] 04.503.10 4.01 / / Lead Linear 3-4 8 Contact 50cm - [id number] Implanted:Qty: 1 on 03/08/2016 by Zelalem Cohen DO at [facility] DEVICE N/A: OTHER-SEE DESCRIPTION [facility] 09/10/2017 [id number] 2500 / / [id number] Description:LUMBAR Lead Linear 3-4 8 Contact 50cm - [id number] Implanted:Qty: 1 on 03/08/2016 by Zelalem Cohen DO at [facility] DEVICE N/A: OTHER-SEE DESCRIPTION [employer] [facility] 09/10/2017 [id number] 2500 / / [id number] Description:LUMBAR Lead Linear 3-4 8 Contact 50cm - [id number] Implanted:Qty: 1 on 03/08/2016 by Zelalem Cohen DO at [facility] DEVICE N/A: OTHER-SEE DESCRIPTION [facility] 09/10/2017 [id number] 2500 / / [id number] Description:LUMBAR Lead Linear 3-4 8 Contact 50cm - [id number] Implanted:Qty: 1 on 03/08/2016 by Zelalem Cohen DO at [facility] DEVICE N/A: OTHER-SEE DESCRIPTION [facility] 09/10/2017 [id number] 2500 / / [id number] Description:LUMBAR Lead Linear 3-4 8 Contact 50cm - [id number] Implanted:Qty: 1 on 05/24/2016 by Zelalem Cohen DO at [facility] DEVICE N/A: SPINE LUMBAR POSTERIOR [facility] 01/31/2018 [id number] 2500 / [id number] / Lead Linear 3-4 8 Contact 50cm - [id number] Implanted:Qty: 1 on 05/24/2016 by Zelalem Cohen DO at [facility] DEVICE N/A: SPINE LUMBAR POSTERIOR [facility] 04/26/2018 [id number] 2500 / [id number] / Lead Linear 3-4 8 Contact 50cm - [id number] Implanted:Qty: 1 on 05/24/2016 by Zelalem Cohen DO at [facility] DEVICE N/A: SPINE LUMBAR POSTERIOR [facility] 04/26/2018 [id number] 2500 / [id number] / Lead Linear 3-4 8 Contact 50cm - [id number] Implanted:Qty: 1 on 05/24/2016 by Zelalem Cohen DO at [facility] DEVICE N/A: SPINE LUMBAR POSTERIOR [facility] 04/26/2018 [id number] 2500 / [id number] / Generator Pulse Spectra - [id number] Implanted:Qty: 1 on 05/24/2016 by Zelalem Cohen DO at [facility] DEVICE N/A: SPINE LUMBAR POSTERIOR [facility] 05/08/2018 [id number] 20 / [id number] / [id number] Grant Clik - [id number] Implanted:Qty: 1 on 05/24/2016 by Zelalem Cohen DO at [facility] DEVICE N/A: SPINE LUMBAR POSTERIOR [facility] 05/02/2018 [id number] 60 / / [id number] Grant Clik - [id number] Implanted:Qty: 1 on 05/24/2016 by Zelalem Cohen DO at [facility] DEVICE N/A: SPINE LUMBAR POSTERIOR [facility] 02/28/2018 [id number] 60 / / [id number] Procedures Procedure Name Priority Date/Time Associated Diagnosis Comments CREATININE/GFR, WB POC Routine 01/06/2016 12:04 PM PROFESSIONAL ENGINEER Back pain, 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 [phone] * (ABNORMAL) HGB A1C (07/29/2014 3:19 AM CDT) Hgb A1c 6.4(H) 4.3 - 6.1 % [facility] Comment: The usual A1C goal for people with diabetes, age 18-75, is <8.0%. Physicians may recommend a higher or lower goal for specific individuals. 07/29/2014 3:19 AM CDT 07/29/2014 3:22 AM CDT Narrative [facility] - 07/29/2014 12:53 PM CDT Performed at [facility], [address] [place] [address] [place] Wei PA-C LAB_[address] [address] from Last 3 Months or Most Recently [...] 5:44 PM 07/28/2014 6:50 PM Care Teams Candlemaker Relationship Specialty Start Date End Date Franklin Squires MD 100 [facility] [place] [address] PCP - General Family Practice 03/08/16
--- OUTSIDE RECORDS SUMMARY | 2024-10-12 12:48 | XMS_ITS | Encounter Summary ---
Author Organization [facility] Address [address] [address] Care Team Providers Care Dust Brush Assembler Name Role Phone Franklin qSuires MD Primary Care Provider [phone] Encounter Details Date Type Department Care Team (Late st Contact Info) Description 08/22/2014 Outside Hospital External to [facility] HOSP-D/C SUMMARY Social History Tobacco Use [...] on filedocumented in this encounter Care Teams Dust Brush Assembler Relationship Specialty Start Date End Date Franklin Squires MD 100 [facility] [address] PCP - General Family Practice 03/08/16 documented as of this encounter
--- OUTSIDE RECORDS SUMMARY | 2024-10-12 12:49 | XMS_ITS | Encounter Summary ---
Author Organization [facility] Address [address], [place] [address] Care Team Providers Care Surgical Supply Assistant Name Role Phone Franklin Squires MD Primary Care Provider Encounter Details Date Type Department Care Team (Late st Contact Info) Description 01/08/2013 Scanned History External to Transferred Record, Provider [facility] Social History Tobacco Use Types [...] filedocumented in this encounter Care Teams Surgical Supply Assistant Relationship Specialty Start Date End Date Franklin Squires MD 100 [facility] [place] [address] PCP - General Family Practice 03/08/16 documented as of this encounter
--- OUTSIDE RECORDS SUMMARY | 2024-10-12 12:49 | XMS_ITS | Encounter Summary ---
Author Organization [facility] Address [address], [place] [address] Care Team Providers Care Cardiac Cath Technician Name Role Phone Franklin Squires MD Primary Care Provider Encounter Details Date Type Department Care Team (Late st Contact Info) Description 04/20/[address] [address] Radiology, Provider MRI SAFETY SHEET AND COMPATIBILITY [...] on filedocumented in this encounter Care Teams Cardiac Cath Technician Relationship Specialty Start Date End Date Franklin Squires MD [address] [facility] [place] [address] PCP - General Family Practice 03/08/16 documented as of this encounter
--- OUTSIDE RECORDS SUMMARY | 2024-10-12 12:49 | XMS_ITS | Encounter Summary ---
Author Organization [facility] Address [address], [place] [address] Care Team Providers Care Sample Mounter Name Role Phone Franklin Squires MD Primary Care Provider Encounter Details Date Type Department Care Team (Late st Contact Info) Description 11/13/2012 Correspondence [facility] Radiology [address] [place] [id number] Radiology, Provider MRI SAFETY SHEET AND COMPATIBILITY [...] RADIOLOGY, PROVIDER - 11/13/2012 12:00 AM CST WINDER documented in this encounter Plan of Treatment Not on file documented as of this encounter Visit Diagnoses Not on filedocumented in this encounter Care Teams Sample Mounter Relationship Specialty Start Date End Date Franklin Squires MD [address] [facility] [place] [address] PCP - General Family Practice 03/08/16 documented as of this encounter
--- OUTSIDE RECORDS SUMMARY | 2024-10-12 12:49 | XMS_ITS | Encounter Summary ---
Author Organization [facility] Address [address], [place] [address] Care Team Providers Care Plastic Technician Name Role Phone Franklin Squires MD Primary Care Provider Encounter Details Date Type Department Care Team (Late st Contact Info) Description 04/24/2012 Correspondence [facility] Radiology [address] [place] [id number] Radiology, Provider MRI SAFETY SHEET AND COMPATIBILITY [...] filedocumented in this encounter Care Teams Plastic Technician Relationship Specialty Start Date End Date Franklin Squires MD [address] [facility] [place] [address] PCP - General Family Practice 03/08/16 documented as of this encounter
--- OUTSIDE RECORDS SUMMARY | 2024-10-12 12:49 | XMS_ITS | Encounter Summary ---
Author Organization [facility] Address [address] [address] Care Team Providers Care Gun Perforator Loader Name Role Phone Franklin Squires MD Primary Care Provider [phone] Encounter Details Date Type Department Care Team [...] on filedocumented in this encounter Care Teams Gun Perforator Loader Relationship Specialty Start Date End Date Franklin Squires MD [address] [facility] [place] [address] PCP - General Family Practice 03/08/16 documented as of this encounter
--- OUTSIDE RECORDS SUMMARY | 2024-10-12 12:49 | XMS_ITS | Encounter Summary ---
Author Organization [facility] Address [address], [place] [address] Care Team Providers Care Junior Oracle Dba Name Role Phone Franklin Squires MD Primary Care Provider [phone] Encounter Details Date Type Department Care Team (Late st Contact Info) Description 07/23/2013 Correspondence [facility] [address] [place] [address] Zelalem Cohen DO [address] [place] [address] [employer] Social History Tobacco Use Types [...] MD - 07/23/2013 12:00 AM CDT ET ASSEMBLER documented in this encounter Plan of Treatment Not on file documented as of this encounter Visit Diagnoses Not on filedocumented in this encounter Care Teams Junior Oracle Dba Relationship Specialty Start Date End Date Franklin Squires MD [address] [facility] [place] [address] PCP - General Family Practice 03/08/16 documented as of this encounter
== END 2024-10-12 12:46 | disposition home or self-care (01) ==
LOC: WOUND 12:45
PROVIDERS: PCP Family Medicine; Visit Provider Nurse Practitioner Family
DX: M86.68 Other chronic osteomyelitis, other site (principal); L89.324 Pressure ulcer of left buttock, stage 4; G82.50 Quadriplegia, unspecified
CPT/HCPCS: 11042

== ENCOUNTER 2024-10-19 12:42 | Outpatient (CLI) | payer MEDICARE, OTHER, SELFPAY ==
--- OUTSIDE RECORDS SUMMARY | 2024-10-19 12:44 | XMS_ITS | Continuity of Care Document ---
Author Name [facility] Organization [facility] Care Team Providers Care Operations Research Group Manager Name Role Phone [facility] Unavailable Unavailable Problems Combined list of problems from 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 It does not include entries that were removed or entered in error. Problem Status Onset Date Problem Type Date of Resolution Comments Source Abnormal liver function Active Condition [facility] Anemia (SCT 191420959) Active Condition [facility] Anxiety ([facility] 24076819) Active Condition [facility] Autonomic dysreflexia Active Condition [facility] Chronic Pain Syndrome (SCT 736883820) Active Condition [facility] Colostomy present Active Condition [facility] Constipation (SCT 35125705) Active Condition [facility] Continuous opioid dependence Active Condition [facility] COPD - Chronic Obstructive Pulmonary Disease (SCT 38592186) Active Condition [facility] Dementia Active Condition [facility] Depression (SCT 33693592) Active Condition [facility] Diabetes Mellitus Type 2 (SCT 83973674) Active Condition [facility] Ependymoma of spinal cord Active Condition [facility] Hearing Loss (SCT 80705780) Active Condition [facility] History of Deep Vein Thrombosis (SCT 543680093) Active Condition [facility] History of pressure injury Active Condition [facility] HTN - Hypertension (SCT 29048219) Active Condition [facility] Hyperlipidemia (SCT 78789476) Active Condition [facility] Hyponatremia Active Condition [facility] Long-term current use of anticoagulant Active Condition [facility] Neurogenic Bladder (SCT 524327575) Active Condition [facility] Neurogenic bowel Active Condition [facility] Osteoporosis ([facility] 29679349) Active Condition [facility] Paraplegia Active Condition [facility] Spasticity Active Condition [facility] Suprapubic urinary catheter in situ Active Condition [facility] Supraventricular tachycardia Active Condition [facility] Tinnitus ([facility] 94861429) Active Condition [facility] Vitamin D Deficiency ([facility] 8817017) Active Condition [facility] Diagnosis: ICD-10-CM Z73.6 Limitation of activities due to disability Active Diagnosis [facility] Diagnosis: ICD-10-CM G82.20 Paraplegia, unspecified Active Diagnosis [facility] Medications Combined list of outpatient medications from Department of Defense and [facility] Affairs facilities.Medications provided include 1) [...] BESYLATE (AMLODIPINE BESYLATE), 5 MG, TABLET, ORAL, [employer] 1000 ea. BOTTLE Active [id number] 4 2023 90 Pharmac y Data Transac tion Service Facilit y AMLODIPINE BESYLATE (amlodipine besylate), 5 MG, TABLET, ORAL, [employer], 1000 ea. BOTTLE Active [id number] 2023 90 Pharmac y Data Transac tion Service Facilit y AMLODIPINE BESYLATE 2.5MG TAB TAKE TWO TABLETS BY MOUTH EVERY MORNING ORAL ACTIVE Jagdish BARRETT 2022 [facility] AMOX TR-POTASSIU M CLAVULANATE (AMOXICILLI N/POTASSIUM CLAV), 875-125 MG, TABLET, ORAL, [employer], 20 ea. BOTTLE Active [id number] 3 2022 14 Pharmac y Data Transac tion Service Facilit y AMOXICILLIN -CLAVULANAT E POTASS (amoxicilli n/potassium clavulanate ), 875-125 MG, TABLET, ORAL, [employer],, 20 ea. BOTTLE Active [id number] 2023 20 Pharmac y Data Transac tion Service Facilit y AMOXICILLIN -CLAVULANAT E POTASS (amoxicilli n/potassium clavulanate ), 875-125 MG, TABLET, ORAL, [employer] [facility],, 20 ea. BOTTLE Active [id number] 2023 56 Pharmac y Data Transac tion Service Facilit y ARIPIPRAZOL E (aripiprazo le), 2 MG, TABLET, ORAL, [employer], 500 ea. BOTTLE Active [id number] 2023 180 Pharmac y Data Transac tion Service Facilit y ARIPIPRAZOL E (aripiprazo le), 2 MG, TABLET, ORAL, [employer], 500 ea. BOTTLE Active [id number] 2023 180 Pharmac y Data Transac tion Service Facilit y ARIPIPRAZOL E TAB TAKE 2MG BY MOUTH TWICE A DAY ORAL ACTIVE Jey HANSON TAZEvelyn Clemente 2021 [facility] ATIVAN (LORAZEPAM) , 0.5 MG, TABLET, ORAL, VALE[employer], 100 ea. BOTTLE Active [id number] 2023 120 Pharmac y Data Transac tion Service Facilit y ATORVASTATI N CA 80MG TAB TAKE ONE-HALF TABLET BY MOUTH EVERY DAY ORAL ACTIVE Jey HANSON Bryn 2021 [facility] ATORVASTATI N CALCIUM (atorvastat in calcium), 40 MG, TABLET, ORAL, BIOCON PHARMA I, 1000 ea. BOTTLE Active [id number] 2023 90 Pharmac y Data Transac tion Service Facilit y ATORVASTATI N CALCIUM (atorvastat in calcium), 40 MG, TABLET, ORAL, BIOCON PHARMA I, 1000 ea. BOTTLE Active [id number] 2023 90 Pharmac y Data Transac [...] ORAL, PAVEL PHARMACEU, 60 ea. BOTTLE Active [id number] 2023 180 Pharmac y Data Transac tion Service Facilit y BUPROPION HCL SR (bupropion HCl), 150 MG, TAB SR 12H, ORAL, PAVEL PHARMACEU, 60 ea. BOTTLE Active [id number] 2023 180 Pharmac y Data Transac [...] ORAL, AUROBINDO PHARM, 50 ea. BOTTLE Active [id number] 2023 70 Pharmac y Data Transac tion Service Facilit y DONEPEZIL HCL (DONEPEZIL HCL), 5 MG, TABLET, ORAL, [employer] 1000 ea. BOTTLE Active [id number] 2023 90 Pharmac y Data Transac tion Service Facilit y DONEPEZIL HCL (DONEPEZIL HCL), 5 MG, TABLET, ORAL, [employer] 1000 ea. BOTTLE Cancele d [id number] : 2023 0 Pharmac y Data Transac tion Service Facilit y DONEPEZIL HCL (DONEPEZIL HCL), 5 MG, TABLET, ORAL, [employer] 1000 ea. BOTTLE Active [id number] 2023 90 Pharmac y Data Transac tion Service Facilit y DONEPEZIL HCL 10MG TAB TAKE ONE-HALF TABLET BY MOUTH EVERY DAY ORAL ACTIVE Jey HANSON Bryn 2021 [facility] DULOXETINE HCL (duloxetine HCl), 60 MG, CAPSULE DR, ORAL, [employer] 1000 ea. BOTTLE Active [id number] 2023 180 Pharmac y Data Transac tion Service Facilit y DULOXETINE HCL (duloxetine HCl), 60 MG, CAPSULE DR, ORAL, [employer] 1000 ea. BOTTLE Active [id number] 2023 180 Pharmac y Data Transac tion Service Facilit y DULOXETINE HCL 30MG CAP,EC TAKE 2 CAPSULES BY MOUTH TWICE A DAY ORAL ACTIVE GRANDJey PRADHAN M 2021 [facility] FAMOTIDINE (famotidine ), 20 MG, TABLET, ORAL, [employer] 1000 ea. BOTTLE Active [id number] 2023 180 Pharmac y Data Transac tion Service Facilit y FAMOTIDINE 20MG TAB TAKE ONE TABLET BY MOUTH TWICE A DAY ORAL ACTIVE GRANDIA,C ONALAINAE M 2021 [facility] FUROSEMIDE (furosemide ), 40 MG, TABLET, ORAL, [employer], 1000 ea. BOTTLE Active [id number] 2023 180 Pharmac y Data Transac tion Service Facilit y FUROSEMIDE 40MG TAB TAKE ONE TABLET BY MOUTH TWICE A DAY ORAL ACTIVE MARGIE,C SB M 2021 [facility] GABAPENTIN (gabapentin ), 400 MG, CAPSULE, ORAL, [employer] 500 ea. BOTTLE Active [id number] 2023 270 Pharmac y Data Transac tion Service Facilit y GABAPENTIN (gabapentin ), 400 MG, CAPSULE, ORAL, [employer] PHARMAC, 500 ea. BOTTLE Active [id number] 2023 270 Pharmac y Data Transac tion Service Facilit y GABAPENTIN (gabapentin ), 400 MG, CAPSULE, ORAL, [employer]ACE, 500 ea. BOTTLE Cancele d [id number] : 2023 0 Pharmac y Data Transac tion Service Facilit y GABAPENTIN 400MG CAP TAKE 1 CAPSULE BY MOUTH THREE TIMES A DAY ORAL ACTIVE GRANDIAJeyE M 2021 [facility] LORAZEPAM (lorazepam) , 0.5 MG, TABLET, ORAL, A[employer]ARM, 500 ea. BOTTLE Active [id number] 2023 120 Pharmac y Data Transac tion Service Facilit y LORAZEPAM (lorazepam) , 0.5 MG, TABLET, ORAL, LEADING PHARMA, 1000 ea. BOTTLE Active [id number] 2023 120 Pharmac y Data Transac tion Service Facilit y LORAZEPAM (lorazepam) , 0.5 MG, TABLET, ORAL, LE[employer]ING [employer]ARMA, 1000 ea. BOTTLE Active [id number] 2023 120 Pharmac y Data Transac tion Service Facilit y LORAZEPAM (lorazepam) , 0.5 MG, TABLET, ORAL, LEADING [employer]ARMA, 1000 ea. BOTTLE Active [id number] 2023 120 Pharmac y Data Transac tion Service Facilit y LORAZEPAM (lorazepam) , 0.5 MG, TABLET, ORAL, LEADING [employer]ARMA, 500 ea. BOTTLE Active [id number] 2023 120 Pharmac y Data Transac tion Service Facilit y LORAZEPAM 0.5MG TAB TAKE ONE TABLET BY MOUTH THREE TIMES A DAY AND TAKE TWO TABLETS BY MOUTH AT BEDTIME ORAL ACTIVE Jagdish BARRETT 2022 [facility] MILK OF MAGNESIA TAKE 30ML BY MOUTH EVERY DAY NEEDED ORAL ACTIVE GRANDIA,C TAZE M 2021 [facility] MULTIVITAMI NS CAP/TAB TAKE ONE TABLET BY MOUTH EVERY DAY ORAL ACTIVE GRANDIA,C SB M 2021 [facility] NALOXONE HCL 4MG/SPRAY SOLN,SPRAY, NASAL SPRAY 1 DOSE IN ONE NOSTRIL DIRECTED PRN NASAL ACTIVE Jagdish BARRETT N 2022 [facility] OXYCODONE HCL (OXYCODONE HCL), 10 MG, TABLET, ORAL, [employer] 100 ea. BOTTLE Active [id number] 2023 120 Pharmac y Data Transac tion Service Facilit y OXYCODONE HCL (OXYCODONE HCL), 10 MG, TABLET, ORAL, [employer] 100 ea. BOTTLE Active [id number] 2023 120 Pharmac y Data Transac tion Service Facilit y OXYCODONE HCL (OXYCODONE HCL), 10 MG, TABLET, ORAL, [employer] 100 ea. BOTTLE Active [id number] 2023 120 Pharmac y Data Transac tion Service Facilit y OXYCODONE HCL (OXYCODONE HCL), 10 MG, TABLET, ORAL, [employer] 100 ea. BOTTLE Active [id number] 2023 120 Pharmac y Data Transac tion Service Facilit y OXYCODONE HCL (OXYCODONE HCL), 10 MG, TABLET, ORAL, [employer] 100 ea. BOTTLE Active [id number] 2023 120 Pharmac y Data Transac tion Service Facilit y OXYCODONE HCL (OXYCODONE HCL), 10 MG, TABLET, ORAL, [employer] 100 ea. BOTTLE Active [id number] 2023 120 Pharmac y Data Transac tion Service Facilit y OXYCODONE HCL (OXYCODONE HCL), 10 MG, TABLET, ORAL, [employer] 100 ea. BOTTLE Active [id number] 2022 120 Pharmac y Data Transac tion Service Facilit y OXYCODONE HCL 5MG TAB TAKE TWO TABLETS BY MOUTH FOUR TIMES A DAY ORAL ACTIVE Jagdish BARRETT 2022 [facility] POTASSIUM CHLORIDE (potassium chloride), 10 MEQ, TAB ER PRT, ORAL, [employer], 100 ea. BOTTLE Active [id number] 2023 180 Pharmac y Data Transac tion Service Facilit y POTASSIUM CHLORIDE (potassium chloride), 10 MEQ, TAB ER PRT, ORAL, [employer], 100 ea. BOTTLE Active [id number] 2023 180 Pharmac y Data Transac tion Service Facilit y POTASSIUM CHLORIDE (potassium chloride), 20 MEQ, TAB ER PRT, ORAL, [employer], 100 ea. BOTTLE Active [id number] 2023 90 Pharmac y Data Transac tion Service Facilit y POTASSIUM CHLORIDE 20MEQ TAB,SA (DISPERSIBL E) TAKE ONE TABLET BY MOUTH TWICE A DAY ORAL ACTIVE Jey HANSON 2021 [facility] SANTYL (collagenas e Clostridium histolyticu m), 250 UNIT/G, OINT. (G), TOPICAL, WHITLOCK&N/UNI LUIS, 30 g TUBE Cancele d [id number] : 2023 0 Pharmac y Data Transac tion Service Facilit y WARFARIN SODIUM (warfarin sodium), 5 MG, TABLET, ORAL, [employer] 1000 ea. BOTTLE Cancele d [id number] : 2022 0 Pharmac y Data Transac tion Service Facilit y WARFARIN SODIUM (WARFARIN SODIUM), 5 MG, TABLET, ORAL, [employer], 1000 ea. BOTTLE Active [id number] 2023 25 Pharmac y Data Transac tion Service Facilit y WARFARIN SODIUM (WARFARIN SODIUM), 5 MG, TABLET, ORAL, [employer], 1000 ea. BOTTLE Active [id number] 2023 12 Pharmac y Data Transac tion Service Facilit y WARFARIN SODIUM (WARFARIN SODIUM), 5 MG, TABLET, ORAL, [employer], 1000 ea. BOTTLE Active [id number] 2023 40 Pharmac y Data Transac tion Service Facilit y WARFARIN SODIUM (WARFARIN SODIUM), 5 MG, TABLET, ORAL, [employer], 1000 ea. BOTTLE Cancele d [id number] : 2022 0 Pharmac y Data Transac tion Service Facilit y WARFARIN SODIUM (warfarin sodium), 7.5 MG, TABLET, ORAL, [employer], 100 ea. BOTTLE Active [id number] 2023 51 Pharmac y Data Transac tion Service Facilit y WARFARIN SODIUM (warfarin sodium), 7.5 MG, TABLET, ORAL, [employer], 100 ea. BOTTLE Active [id number] 2023 78 Pharmac y Data Transac tion Service Facilit y WARFARIN TAB TAKE 5MG BY MOUTH SUN/THUR S AND TAKE 7.5MG BY MOUTH ALL OTHER DAYS ORAL ACTIVE Jagdish BARRETT 2022 [facility] Allergies, Adverse Reactions, Alerts Combined list of allergies from Department [facility] and [facility] facilities. It does not include entries that were removed or entered in error. Substance Category Reaction Severity Reaction type Status Date Reported Comments Source AMOXICILLIN Propensity to adverse reactions to drug (finding) Eruption active 2 [place] [facility] METOLAZONE Propensity to adverse reactions to drug (finding) Itching active [address] [facility] IS [facility] MORPHINE Propensity to adverse reactions to drug (finding) Delirium active [address] [facility] IS [facility] PIPERACILLIN Propensity to adverse reactions to drug (finding) Eruption active [address] [facility] IS [facility] SULFA DRUGS Propensity to adverse reactions to drug (finding) Eruption active [address] [facility] IS [facility] TAZOBACTAM SODIUM Propensity to adverse reactions to drug (finding) Eruption active 2 [facility] IS [facility] Immunizations Combined list of available immunizations from the Department of [facility] and [facility] facilities. Immunization Series Date Given Administered By Site Reaction Lot Number CVX Code Drug Barking Machine Feeder Status Comments Source COVID-19 (Buysight), MRNA, LNP-S, BIVALENT, PF, 30 MCG/0.3 ML DOSE 2021 300 complet ed [facility] INFLUENZA, ADJUVANTED, QUADRIVALENT, PF 2021 205 complet ed [facility] INFLUENZA, UNSPECIFIED FORMULATION 2021 88 complet ed [place]'s recall [facility] TD (ADULT), 5 LF TETANUS TOXOID, PRESERVATIVE FREE, ADSORBED 2021 113 complet ed [facility] INFLUENZA, ADJUVANTED, QUADRIVALENT, PF 2020 205 complet ed [facility] INFLUENZA, UNSPECIFIED FORMULATION 2020 88 complet ed [facility] COVID-19 (Buysight), MRNA, LNP-S, PF, 30 MCG/0.3 ML DOSE 3 2020 208 complet ed [facility] COVID-19 (PFIZER), MRNA, LNP-S, PF, 30 MCG/0.3 ML DOSE 2 2020 208 complet ed [facility] COVID-19 (Buysight), MRNA, LNP-S, PF, 30 MCG/0.3 ML DOSE 1 2020 208 complet ed [facility] INFLUENZA, ADJUVANTED, QUADRIVALENT, PF 2019 205 complet ed [facility] INFLUENZA, ADJUVANTED, TRIVALENT, PF 2018 168 complet ed [facility] INFLUENZA, ADJUVANTED, TRIVALENT, PF 2017 168 complet ed [facility] INFLUENZA, HIGH-DOSE, TRIVALENT, PF 2016 135 complet ed [facility] INFLUENZA, ADJUVANTED, TRIVALENT, PF 2016 168 complet ed [facility] INFLUENZA, HIGH-DOSE, TRIVALENT, PF 2015 135 complet ed [facility] ZOSTER LIVE 2015 121 complet ed [facility] PNEUMOCOCCAL CONJUGATE PCV 13 2014 133 complet ed [facility] INFLUENZA, HIGH-DOSE, TRIVALENT, PF 2014 135 complet ed [facility] INFLUENZA, HIGH-DOSE, TRIVALENT, PF 2013 135 complet ed [facility] INFLUENZA, UNSPECIFIED FORMULATION 2013 88 complet ed [facility] INFLUENZA, SPLIT VIRUS, TRIVALENT, PRESERVATIVE 2012 141 complet ed [facility] ZOSTER LIVE 2012 121 complet ed [facility] INFLUENZA, SPLIT VIRUS, TRIVALENT, PRESERVATIVE 2011 141 complet ed [facility] INFLUENZA, SPLIT VIRUS, TRIVALENT, PF 2010 140 complet ed [facility] PNEUMOCOCCAL POLYSACCHARID E PPV23 2010 33 complet ed [facility] TDAP 2010 115 complet ed [facility] INFLUENZA, SPLIT VIRUS, TRIVALENT, PRESERVATIVE 2009 141 complet ed [facility] NOVEL INFLUENZA-H1N 1-09, ALL FORMULATIONS 2009 128 complet ed [facility] INFLUENZA, SPLIT VIRUS, TRIVALENT, PF 2008 140 complet ed [facility] PNEUMOCOCCAL POLYSACCHARID E PPV23 2008 33 complet ed [facility] INFLUENZA, SPLIT VIRUS, TRIVALENT, PRESERVATIVE 2008 141 complet ed [facility] INFLUENZA, SPLIT VIRUS, TRIVALENT, PRESERVATIVE 2007 141 complet ed [facility] INFLUENZA, SPLIT VIRUS, TRIVALENT, PRESERVATIVE 2005 141 complet ed [facility] INFLUENZA, SPLIT VIRUS, TRIVALENT, PRESERVATIVE 2004 141 complet ed [facility] PNEUMOCOCCAL POLYSACCHARID E PPV23 2004 33 complet ed [facility] INFLUENZA, SPLIT VIRUS, TRIVALENT, PRESERVATIVE 2003 141 complet ed [facility] Results Combined list of recent chemistry, hematology and other laboratory results from Department of Defense and Veterans Affairs, ranging from 15 months to all on record, depending upon the facility. Order Name Results Value Reference Range Date Interpretation Specimen Comments Source CYSTATIN C WITH EGFR CYSTATIN C [MASS/VOLUM E] IN SERUM OR PLASMA 1.27 mg/L 0.51 - 1.05 02/13 H Specimen Type: PLASMA No comment entered. Ordering Provider: ANKUSH BOWMAN Report Released Date/Time: Feb 05, 2023 03:10 PM Reporting Lab: [facility] [address] Performing Lab: [facility] [address] [facility] CYSTATIN C WITH EGFR CYSTATIN C AND GLOMERULAR FILTRATION RATE BY CYSTATIN C-BASED FORMULA PANEL - SERUM OR PLASMA 53 60 02/13 L Specimen Type: PLASMA No comment entered. Ordering Provider: ANKUSH BOWMAN Report Released Date/Time: Feb 05, 2023 03:10 PM Reporting Lab: [facility] [address] Performing Lab: [facility] [address] [facility] BASIC METABOLIC PANEL+MG CREATININE [MASS/VOLUM E] IN SERUM OR PLASMA 0.7 mg/dL 0.7 - 1.2 02/13 Specimen Type: PLASMA No comment entered. Ordering Provider: ANKUSH BOWMAN Report Released Date/Time: Feb 05, 2023 03:10 PM Reporting Lab: [facility] [address] Performing Lab: [facility] [address] [place] [facility] BASIC METABOLIC PANEL+MG UREA NITROGEN [MASS/VOLUM E] IN SERUM OR PLASMA 15 mg/dL 8 - 26 02/13 Specimen Type: PLASMA No comment entered. Ordering Provider: ANKUSH BOWMAN Report Released Date/Time: Feb 05, 2023 03:10 PM Reporting Lab: [facility] [address] Performing Lab: [facility] [address] [place] [facility] BASIC METABOLIC PANEL+MG GLUCOSE [MASS/VOLUM E] IN SERUM OR PLASMA 140 mg/dL 70 - 100 02/13 H Specimen Type: PLASMA No comment entered. Ordering Provider: ANKUSH BOWMAN Report Released Date/Time: Feb 05, 2023 03:10 PM Reporting Lab: [facility] [address] Performing Lab: [facility] [address] [place] [facility] BASIC METABOLIC PANEL+MG SODIUM [MOLES/VOLU ME] IN SERUM OR PLASMA 135 mmol/L 136 - 145 02/13 L Specimen Type: PLASMA No comment entered. Ordering Provider: ANKUSH BOWMAN Report Released Date/Time: Feb 05, 2023 03:10 PM Reporting Lab: [facility] [address] Performing Lab: [facility] [address] [place] [facility] BASIC METABOLIC PANEL+MG POTASSIUM [MOLES/VOLU ME] IN SERUM OR PLASMA 4.0 mmol/L 3.5 - 5.1 02/13 Specimen Type: PLASMA No comment entered. Ordering Provider: ANKUSH BOWMAN Report Released Date/Time: Feb 05, 2023 03:10 PM Reporting Lab: [facility] [address] Performing Lab: [facility] [address] [place] [facility] BASIC METABOLIC PANEL+MG CHLORIDE [MOLES/VOLU ME] IN SERUM OR PLASMA 99 mmol/L 98 - 107 02/13 Specimen Type: PLASMA No comment entered. Ordering Provider: ANKUSH BOWMAN Report Released Date/Time: Feb 05, 2023 03:10 PM Reporting Lab: [facility] [address] Performing Lab: [facility] [address] [place] [facility] BASIC METABOLIC PANEL+MG CARBON DIOXIDE, TOTAL [MOLES/VOLU ME] IN SERUM OR PLASMA 29 mmol/L 22 - 29 02/13 Specimen Type: PLASMA No comment entered. Ordering Provider: ANKUSH BOWMAN Report Released Date/Time: Feb 05, 2023 03:10 PM Reporting Lab: [facility] [address] Performing Lab: [facility] [address] [place] [facility] BASIC METABOLIC PANEL+MG CALCIUM [MASS/VOLUM E] IN SERUM OR PLASMA 9.2 mg/dL 8.4 - 10.2 02/13 Specimen Type: PLASMA No comment entered. Ordering Provider: ANKUSH BOWMAN Report Released Date/Time: Feb 05, 2023 03:10 PM Reporting Lab: [facility] [address] Performing Lab: [place] [address] [place] [facility] BASIC METABOLIC PANEL+MG MAGNESIUM [MASS/VOLUM E] IN SERUM OR PLASMA 2.0 mg/dL 1.6 - 2.6 02/13 Specimen Type: PLASMA No comment entered. Ordering Provider: ANKUSH BOWMAN Report Released Date/Time: Feb 05, 2023 03:10 PM Reporting Lab: [facility] [address] Performing Lab: [facility] [address] [place] [facility] BASIC METABOLIC PANEL+MG ANION GAP IN SERUM OR PLASMA 7 mmol/L 5 - 15 02/13 Specimen Type: PLASMA No comment entered. Ordering Provider: ANKUSH BOWMAN Report Released Date/Time: Feb 05, 2023 03:10 PM Reporting Lab: [facility] [address] Performing Lab: [facility] [address] [place] [facility] BASIC METABOLIC PANEL+MG GLOMERULAR FILTRATION RATE/1.73 SQ M.PREDICTED [VOLUME RATE/AREA] IN SERUM, PLASMA OR BLOOD BY CREATININE- BASED FORMULA (CKD-EPI) >90 60 02/13 Specimen Type: PLASMA No comment entered. Ordering Provider: ANKUSH BOWMAN Report Released Date/Time: Feb 05, 2023 03:10 PM Reporting Lab: [facility] [address] Performing Lab: [facility] [address] [place] [facility] Encounters Combined list of: 1) Encounters from Department of Veterans Affairs facilities going back up to thelast 18 months. 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 Location Location Details Encounter Type Encounter Number Reason For Visit Attending Provider ADM Date DC Date Status Disposition Source [place] [facility] PRO PHONE CALL 11-20 MIN [id number] Diagnos is: ICD-10- CM Z73.6 Limitat ion of activit ies due to disabil ity<br/ > BOUSLOG,RY AN P 04/23 [facility] [place] [facility] Outpatient Encounter [id number] 04/24 [facility] [facility] [place] [facility] Outpatient Encounter [id number] 05/24 [facility] [facility] [place] [facility] OFF/OP EST MARCH X REQ PHY/QHP [id number] Diagnos is: ICD-10- CM G82.20 Paraple mary kay, unspeci fied
VIOLA YOON NDJagdish 05/28 [facility] [place] [facility] WHEELCHAIR MNGMENT TRAINING [id number] Diagnos is: ICD-10- CM Z73.6 Limitat ion of activit ies due to disabil ity<br/ > BOUSLOG,RY AN P 06/10 [facility] [place] [facility] Outpatient Encounter [id number] 10/28 [facility] [place] [facility] Outpatient Encounter [id number] 11/20 [facility] [place] [facility] Outpatient Encounter [id number] 05/12 [facility] [place] [facility] Outpatient [facility]counter [id number] 07/23 [facility] [place] [facility] Outpatient Encounter [id number] EDE ANDERS 07/28 [facility] [place] [facility] Outpatient Encounter [id number] 09/23 [facility] Social History Combined list of available smoking, tobacco, and other social history from 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 Social History Type Response Date Comment Sourc e Tobacco smoking status [facility] NEVER USED 05/28/20 22 [facility] TREVINO [facility] This section is an empty social history section. [facility] Plan of Care List of future care activities from Department 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 Additional future care activities may be listed in the Assessment and Plan section. Date/Time Care Activity Care Activity Detail Facili ty 09/24/2024 Consult Order PROSTHETICS REQU EST Cons Body Component Engineer's Choice [facility] Advance Directives List of completed, amended, or rescinded Advance Directives on record at Department of 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 An actual copy of the Directive is not included. Date Advance Directive Provider Source 02/05/2023 ADVANCE DIRECTIVE DISCUSSION GUSTAVO ABAD [facility]
--- OUTSIDE RECORDS SUMMARY | 2024-10-19 12:45 | XMS_ITS | Encounter Summary ---
Author Organization [facility] Address [address] [address] Care Team Providers Care Recreation Center Director Name Role Phone Franklin Squires MD Primary Care Provider [phone] Encounter Details Date Type Department Care Team [...] on filedocumented in this encounter Care Teams Recreation Center Director Relationship Specialty Start Date End Date Franklin Squires MD [address] [facility] [address] PCP - General Family Practice 03/08/16 documented as of this encounter
--- OUTSIDE RECORDS SUMMARY | 2024-10-19 12:45 | XMS_ITS | Encounter Summary ---
Author Organization [facility] Address [address] [address] Care Team Providers Care Electronics Supervisor Name Role Phone Franklin Squires MD Primary Care Provider Encounter Details Date Type Department Care Team (Late st Contact Info) Description 02/09/2016 [facility] NeuroSurgery [address] [facility] [place], [place] [id number] Jodi Aguila PA-C [address] [place] [id number] PATIENT LIFT PRESCRIPTION Social History Tobacco Use [...] filedocumented in this encounter Care Teams Electronics Supervisor Relationship Specialty Start Date End Date Franklin Squires MD [address] [facility] [place] [phone] PCP - General Family Practice 03/08/16 documented as of this encounter
--- OUTSIDE RECORDS SUMMARY | 2024-10-19 12:45 | XMS_ITS | Encounter Summary ---
Author Organization [facility] [address], [place] [address] Care Team Providers Care Pipe Setter Name Role Phone Franklin Squires MD Primary Care Provider [phone] Encounter Details Date Type Department Care Team (Late st Contact Info) Description 07/08/2015 [facility]ence [facility] Physical Therapy [address] [place] [address] Trudi Raymundo, PT [address] [place] [address] ADDENDUM FOR LETTER OF MEDICAL NECESSITY Social [...] filedocumented in this encounter Care Teams Pipe Setter Relationship Specialty Start Date End Date Franklin Squires MD [address] [facility] [place] [address] PCP - General Family Practice 03/08/16 documented as of this encounter
--- OUTSIDE RECORDS SUMMARY | 2024-10-19 12:45 | XMS_ITS | Clinical Summary ---
Author Organization [facility] Address [place], [place] [address] Care Team Providers Care Services Delivery Driver Name Role Phone Zelalem Cohen MD Unavailable [phone] May Randle MD Unavailable [phone] Franklin Squires MD Primary Care Provider Fred CraftW Unavailable [phone] Diane Charles MD Unavailable [phone] Julia Ware RN Unavailable [phone] Allergies Active Allergy Reactions Criticality Noted Date Comments Levofloxacin Confusion 10/18/2023 Morphine Other - Describe In Comment Field 02/21/2017 confusion Sulfa (Sulfonamide Antibiotics) Rash 04/27/2010 Sulfasalazine Rash 04/27/2010 Metolazone Itching 09/15/2007 Medications FOLIC ACID/MULTIVITS-MIN/LUT (CENTRUM SILVER ORAL) Take 1 tablet by mouth once daily. Active cholecalciferol (VITAMIN D3) 1,000 unit tablet Take 1,000 Units by mouth once daily. Active milk of magnesia (MOM) 400 mg/5 mL suspension Take 15-30 mL by mouth once daily. Active lancets 28 gauge misc Test 4 times per day 100 Each 2017 Active hospital bedIndications:Non-hea ling surgical wound, subsequent encounter Drive [employer] 8 inch low loss mattress and 1/2 rails. Semi-electric bed. Length of need 6 weeks. Bed handbell choir director:no 1 unit 2017 Active acetaminophen (TYLENOL EXTRA STRGTH) 500 mg tabletIndications:feve r,pain Take 1,000 mg by mouth three times daily. Max acetaminophen dose: 4000mg in 24 hrs. Active sodium chloride (AYR SALINE NASL) Inhale 2-3 Sprays in the nostril(s) once daily if needed. 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 [employer] Kamran Click Ostomy Barrier with belt tabs 60mm, Cut-to-Fit 01/16 - 2 11/18. Item #[id number]. 1 Each 11 2020 Active ascorbic acid, vitamin C, (Vitamin C) 500 mg tablet Take 1,000 mg by mouth two times daily with meals. Active fluticasone (50 mcg per actuation) nasal solution (FLONASE) Inhale 2 Sprays into affected nostril(s) once daily if needed for Rhinitis. Active Procedural Tray trayIndications:Neurog enic bladder As directed. Irrigation tray with Piston Syringe for flushing supra pubic catheter daily 12 Each 2022 Active Catheter kitIndications:Neuroge halina bladder As directed. 3 Kit 3 2023 Active amLODIPine (NORVASC) 5 mg tabletIndications:Labi le hypertension Take 1 Tablet (5 mg) by mouth once daily. 90 Tablet 3 2023 Active Sodium hypochlorite (Dakin's Solution) 0.25 % solnIndications:Pressu re injury of left buttock, stage 4 () APPLY 10MIN SOAK TO WOUND BED 473 mL 2023 Active Catheter (De La Cruz Catheter) 24 Fr miscIndications:Suprap ubic catheter () As directed. 3 Each 3 2023 Active gabapentin (NEURONTIN) 400 mg capsuleIndications:Sev ere back pain Take 1 Capsule (400 mg) by mouth three times daily. 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),Anticoagulation monitoring, INR range 2-3,SDH (subdural hematoma) (HC) Not currently using this tablet size 2023 Active famotidine (PEPCID) 20 mg tabletIndications:Nika ritis, presence of bleeding unspecified, unspecified chronicity, unspecified gastritis type TAKE 1 TABLET TWICE A DAY 180 Tablet 2 2023 Active ARIPiprazole (ABILIFY) 2 mg tabletIndications:Shenu sions of parasitosis (HC) TAKE 1 TABLET TWICE A DAY 180 Tablet 3 2023 Active warfarin (COUMADIN) 7.5 mg tabletIndications: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 180 Tablet 2023 Active potassium chloride (KLOR-CON M10) 10 mEq extended-release tablet (part/cryst)Indication s:Hypokalemia Take 2 Tablets (20 mEq) by mouth once daily with a meal. 180 Tablet 1 2023 Active DULoxetine (CYMBALTA) 60 mg Delayed-release capsuleIndications:Dep ressive disorder Take 1 Capsule (60 mg) by mouth two times daily. 180 Capsule 2023 Active atorvastatin (LIPITOR) 40 mg tabletIndications:Pure hypercholesterolemia Take 1 Tablet (40 mg) by mouth at bedtime. 90 Tablet 2 09/22 Discontinued potassium chloride (KLOR-CON M10) 10 mEq extended-release tablet (part/cryst)Indication s:Hypokalemia Take 2 Tablets (20 mEq) by mouth once daily with a meal. 180 Tablet 3 10/13 Discontinued L.acidoph/B.animalis/B .longum (FLORAJEN DIGESTION ORAL) Take 1 Capsule by mouth once daily. 10/16 Discontinued( *Patient states no longer taking) DULoxetine (CYMBALTA) 60 mg Delayed-release capsuleIndications:Dep ressive disorder TAKE 1 CAPSULE TWICE A DAY 180 Capsule 1 10/13 Discontinued buPROPion (WELLBUTRIN SR) 150 mg Sustained-Release tabletIndications:Depr essive disorder TAKE 1 TABLET TWICE A DAY 180 Tablet 10/13 Discontinued oxyCODONE 10 mg tabletIndications:Service Counselor halina pain syndrome TAKE ONE TABLET BY MOUTH EVERY 6 HOURS 120 Tablet 10/01 Discontinued Active Problems Problem Noted Date Diagnosed Date Hyperlipidemia 10/16/2024 Pressure ulcer of left buttock, stage 4 10/16/20 24 Wound infection 07/22/2024 Deep tissue injury 02/16/2024 [...] 09/27/2008 Assessment & Plan (01/19/2012 9:22 AM WET MILLING WHEEL OPERATOR): Orthopedics: Dr. Bright PM&R: Dr. May Randle Pain Management: Dr. 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 Pure hypercholesterolemia 12/24/2006 Neurogenic bladder 12/24/2006 Neurogenic bowel 12/24/2006 Hypertension Resolved Problems Problem Noted Date Diagnosed Date Resolved Date Soft tissue infection 10/22/20232023 detention current use of anticoagulant 06/20/2023 01/08/2024 Cellulitis [...] 10/01/2007 Overview (04/16/2007): S/P IVC Filter intermediate designer (current) use of anticoagulants 02/19/2007 09/27/2008 Depressive disorder, not elsewhere classified 02/14/20 07 01/15/2018 Abnormality of gait 12/24/2006 09/27/20 08 Urinary tract infection, site not specified 12/24/2006 01/15/2018 BENIGN ESSENTIAL HYPERTENSION 12/24/2006 04/17/2016 Overview (12/24/2006): borderline Necrotizing fasciitis 2018 Type 2 diabetes mellitus Encounters Date Type Department Care Team Description 10/19/[address] [place] [phone] Franklin Squires MD Form (08/12/24 Influenza vaccine given.) 10/16/2024 10:50 AM WET MILLING WHEEL OPERATOR Office Visit [address] [place] [phone] Britany Edwards NP Follow Up (crackling in right lower lung per home care nurse); Immunization/Injectio n 10/16/2024 Anticoagulation (warfarin) [address] [place] [phone] 1, [facility] Anticoagulation (Acelis) 10/16/2024 Travel 10/10/2024 Refill [facility] [address] [facility] [phone] Franklin Squires MD Refill Request (Bupropion, Potassium Chloride, Duloxetine) 10/09/2024 Anticoagulation (warfarin) [facility] [address] [place] [address] [place] [address] [facility] Anticoagulation (ACELIS 2.3) 10/02/2024 2:00 PM WET MILLING WHEEL OPERATOR Nurse/Clinic Staff Only [facility] [address] [place] [address] Nurse/Clinic Staff Only (Suprapubic Cath change ) 10/02/2024 Travel 10/02/2024 Anticoagulation (warfarin) [facility] [address] [place] [address] [place] [address] [facility] Anticoagulation (Acelis) 09/30/2024 Refill [facility] [address] [place] [address] Franklin Squires MD Refill Request (Oxycodone) 09/25/2024 3:19 PM WET MILLING WHEEL OPERATOR - 09/25/2024 11:59 PM WET MILLING WHEEL OPERATOR Hospital Encounter [facility] [address] [place] [address] Nighat Fierro MD 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); Chronic osteomyelitis of symphysis pubis (HC) 09/25/2024 Anticoagulation (warfarin) [facility] [address] [place] [address] 1, [facility] Anticoagulation (Acelis) 09/25/2024 Travel 09/22/2024 2:30 PM WET MILLING WHEEL OPERATOR - 09/22/2024 11:59 PM WET MILLING WHEEL OPERATOR Hospital Encounter [facility] [address] [place] [address] 09/22/2024 Travel 09/20/2024 Refill [facility] [address] [place] [address] Franklin Squires MD Refill Request (Atorvastatin) 09/18/2024 Anticoagulation (warfarin) [address] [place] [phone] 1, [facility] Anticoagulation ( ACELIS) 09/17/2024 11:29 AM WET MILLING WHEEL OPERATOR - 09/17/2024 11:59 PM WET MILLING WHEEL OPERATOR Hospital Encounter [facility] [address] [place] [address] Wound infection (Primary Dx) 09/17/2024 Travel 09/16/[address] [phone] Franklin Squires MD Anticoagulation (orders) 09/11/2024 Anticoagulation (warfarin) [address] [place] [phone] 1, [facility] Anticoagulation (Acelis) 09/10/2024 1:56 PM CDT - 09/10/2024 11:59 PM CDT Hospital Encounter [facility] [address] [place] [address] Wound infection (Primary Dx) 09/10/2024 1:15 PM CDT Office Visit [address] [place] [phone] Diane Charles MD Consult (Neurogenic bladder) 09/10/2024 Travel 09/07/2024 Hospital/[facility] Telepho ne Encounter [address] [place] [address] Yen Hernandez RN Pre Procedure (PVP) 09/07/[address] [phone] Franklin Squires MD Form (Case communication and Plan of Care.) 09/04/2024 Anticoagulation (warfarin) [address] [place] [address] , [facility] Anticoagulation (Acelis) 09/03/2024 1:53 PM CDT - 09/03/2024 11:59 PM CDT Hospital Encounter [facility] [address] [place] [address] Wound infection 09/03/2024 Travel 09/03/[address] [phone] , [facility] Refill Request (Warfarin) 09/02/[address] [address] Corrie Gomez, CYBER SECURITY INSTRUCTOR Appointment 09/01/[address] [phone] Franklin Squires MD Refill Request (Oxycodone) 08/30/[address] [phone] Franklin Squires MD Refill Request (Famotidine, Aripiprazole) 08/29/2024 Anticoagulation (warfarin) [address] [phone] [place] [address] [facility] Anticoagulation (Acelis) 08/28/[address] [phone] Franklin Squires MD Form (Case communication) 08/27/2024 11:25 AM CDT - 08/27/2024 11:59 PM CDT Hospital Encounter [address] [address] Wound infection (Primary Dx) 08/27/2024 Travel 08/25/2024 Hospital/[facility] Telepho ne Encounter [facility] [address] [place] [address] Yen Hernandez RN Pre Procedure (PVP) 08/21/2024 1:00 PM CDT Nurse/Clinic Staff Only [address] [place] [address] Nurse/Clinic Staff Only 08/21/2024 Travel 08/21/2024 Anticoagulation (warfarin) [address] [place] [phone] 1, [facility] Anticoagulation (Acelis) 08/20/2024 11:27 AM CDT - 08/20/2024 11:59 PM CDT Hospital Encounter [address] [place] [address] Wound infection (Primary Dx) 08/19/2024 3:00 PM CDT Nurse/Clinic Staff Only [address] [place] [address] Nurse/Clinic Staff Only (Cath Change ) 08/19/[address] [place] [address] Diane Charles MD Appointment 08/19/2024 Travel 08/18/[address] [place] [address] Franklin Squires MD Questions 08/14/2024 Nurse Triage [address] [place] [address] Franklin Squires MD Catheter Problem 08/14/2024 Anticoagulation (warfarin) [address] [place] [phone] 1, [facility] Anticoagulation (Acelis) 08/13/2024 11:23 AM CDT - 08/13/2024 11:59 PM CDT Hospital Encounter [address] [place] [address] Wound infection 08/13/2024 Travel 08/13/2024 Hospital/[facility] Telepho ne Encounter [address] [place] [address] Yen Hernandez RN Pre Procedure (PVP) 08/07/2024 Anticoagulation (warfarin) [address] [facility] [address] 1, [facility] Anticoagulation (Acelis) 08/06/2024 11:27 AM CDT - 08/06/2024 11:59 PM CDT Hospital Encounter [facility] 200 [facility] [place] [address] Wound infection (Primary Dx) 08/06/2024 Travel 08/06/2024 Hospital/[facility] Telepho ne Encounter [address] [place] [address] Yen Hernandez RN Pre Procedure (PVP) 08/04/[address] [phone] Franklin Squires MD Form 07/31/2024 Anticoagulation (warfarin) [address] [place] [address] 1, [facility] Anticoagulation (Acelis) 07/30/2024 11:25 AM CDT - 07/30/2024 11:59 PM CDT Hospital Encounter [address] [place] [address] Wound infection (Primary Dx) 07/30/2024 Hospital/[facility] Telepho ne Encounter [address] [place] [address] Yen Hernandez RN Pre Procedure (PVP) 07/29/2024 1:30 PM CDT Nurse/Clinic Staff Only [address] [place] [address] Nurse/Clinic Staff Only (Suprapubic Cath) 07/29/[address] [place] [address] Franklin Squires MD Refill Request (Oxycodone) 07/29/2024 Travel 07/27/2024 Anticoagulation (warfarin) [facility] [address] [place] [address] 1, [facility] Anticoagulation (Acelis) 07/24/2024 Telephone [facility] [address] [place] [address] Franklin Squires MD Anticoagulation (new med) 07/23/2024 8:46 AM CDT - 07/23/2024 2:33 PM CDT Hospital Encounter [facility] [address] [place] [address] Yudith Mcgraw NP Wound infection (Primary Dx) Discharge Disposition: Home Health 07/23/2024 Orders Only [facility] [address] [place] [address] Yudith Mcgraw CYBER SECURITY INSTRUCTOR 1 scan: INFUSION CEFEPIME 2 MG 07/23/2024 Travel 07/22/2024 Telephone [facility] [address] [place] [address] Yen Hernandez, RN Appointment 07/22/2024 Telephone [facility] [address] [place] [address] Jennyfer Penny RN from Last 3 Months Immunizations Name Administration Dates Next Due COVID-19 VACCINE SPIKEVAX (M ODERNA 50MCG/0.5ML) 12YO+ PFS 10/16/2024 COVID-19 vaccine (Pfizer-Bio NTech 30mcg/0.3mL) 12YO+ BIVALENT [...] Recorded Sex Assigned at Not on file Legal Sex Male 6:20 AM WET MILLING WHEEL OPERATOR Gender Identity Not on file Sexual Orientation Not on file Occupation Industry Job Start Date Job End Date Not on file Not on file Not on file Not on file RETIRED 04/11/2000 Not on file Not on file Not on file Obstetrics History Last Filed Vital Signs Vital Sign Reading Time Taken Comments Blood Pressure 120/68 10/16/2024 10:58 AM WET MILLING WHEEL OPERATOR Pulse 92 10/16/2024 10:58 AM WET MILLING WHEEL OPERATOR Temperature 36.5 C (97.7 F) 10/16/2024 10:58 AM WET MILLING WHEEL OPERATOR Respiratory Rate 16 09/10/2024 1:26 PM CDT Oxygen Saturation 100% 10/16/2024 10:58 AM WET MILLING WHEEL OPERATOR Inhaled Oxygen Concentration - - Weight 95.7 kg (211 lb) 04/24/2024 1:48 PM CDT Height 175.3 cm (5' 9) 04/24/2024 1:48 PM CDT Body Mass Index 31.16 04/24/2024 1:48 PM CDT Plan of Treatment Upcoming Encounters Date Type Department Care Team (Late st Contact Info) Description 10/22/2024 2:00 PM WET MILLING WHEEL OPERATOR Nurse/Clinic Staff Only [address] [phone] 10/30/2024 11:30 AM WET MILLING WHEEL OPERATOR Office Visit [address] [phone] Franklin Squires MD [address] [place] [address] 11/12/2024 2:00 PM WET MILLING WHEEL OPERATOR Nurse/Clinic Staff Only [address] [phone] Health Maintenance Due Date Last Done Comments Hepatitis C screening for ag e 18-05/07/1963 Zoster (shingles) series for age 50+ (2 of 3) 01/11/2016 11/16/2015, 03/23/2013 Medicare Wellness for age 65+ 02/07/2018 02/06/2017, 10/19/2015 RSV vaccine for adults or (1 - 1-dose 75+ series) 2021 Influenza for age 65+ 07/12/2024 10/22/2022 , 10/11/2022, 09/03/2021, Additional history exists Depression screening for age 12+ 12/19/2024 12/19/2023, 12/19/2023, 06/29/2022, Additional history exists Tetanus booster 05/28/2032 05/28/2022, 06/28/2011 Tdap Completed 06/28/2011 Pneumococcal series for age 65+ Completed 10/19/2015, 08/13/2011, 10/06/2009, Additional history exists COVID-19 vaccine series Completed 10/16/20, 10/22/2022, 08/06/2021, Additional history exists Procedures Procedure Name Priority Date/Time Associated Diagnosis Comments HOME MONITOR AC Routine 10/16/2024 12:00 AM WET MILLING WHEEL OPERATOR HOME MONITOR AC Routine 10/09/2024 12:00 AM WET MILLING WHEEL OPERATOR HOME MONITOR AC Routine 10/02/2024 12:00 AM WET MILLING WHEEL OPERATOR CT PELVIS W Routine 09/25/2024 3:42 PM WET MILLING WHEEL OPERATOR 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) HOME MONITOR AC Routine 09/25/2024 12:00 AM WET MILLING WHEEL OPERATOR HOME MONITOR AC Routine 09/18/2024 12:00 AM WET MILLING WHEEL OPERATOR CBC WITH AUTO DIFFERENTIAL STAT 09/17/2024 11:43 AM WET MILLING WHEEL OPERATOR CBC WITH AUTO DIFFERENTIAL STAT 09/17/2024 11:43 AM WET MILLING WHEEL OPERATOR SEDIMENTATION RATE STAT 09/17/2024 11 :43 AM WET MILLING WHEEL OPERATOR C-REACTIVE PROTEIN STAT 09/17/2024 11 :43 AM WET MILLING WHEEL OPERATOR HOME MONITOR AC Routine 09/11/2024 12:00 [...] SCAN-OPERATIVE/PROCED URE REPORT 07/23/2024 12:00 AM CDT from Last 3 Months Results * (ABNORMAL) HOME MONITOR AC (10/16/2024 12:00 AM WET MILLING WHEEL OPERATOR) Only the most recent of13 resultswithin the time period is included. PATIENT REPORTED HOME INR 3.1(H) 2.00 - 3.00 [facility] 10/16/2024 us Franklin Squires MD OTHER Final Result [facility] [address] [place] [address] * CT PELVIS W (09/25/2024 3:42 PM WET MILLING WHEEL OPERATOR) Anatomical Region Laterality Modality Pelvis, Abdomen, PROSTATE, BLADDER Computed Tomography 09/28/2024 5:17 AM WET MILLING WHEEL OPERATOR Impressions 09/28/2024 5:17 AM WET MILLING WHEEL OPERATOR 1. Left decubitus ulcer fairly similar in [...] AM (Electronically Signed) Narrative 09/28/2024 5:17 AM WET MILLING WHEEL OPERATOR For Patients: As a result of the [...] MD @ 09/28/2024 5:17:14 AM (Electronically Signed) us Nighat Fierro MD CT Final Result * (ABNORMAL) SEDIMENTATION RATE (09/17/2024 11:43 AM WET MILLING WHEEL OPERATOR) Only the most recent of2 resultswithin the time period is included. SEDIMENTATION RATE 33(H) <20 mm/hr 2023 11:54 AM [facility] Blood BLOOD SPECIMEN / Unknown Line/Port / Unknown 09/17/2024 11:43 AM WET MILLING WHEEL OPERATOR 09/17/2024 11:46 AM WET MILLING WHEEL OPERATOR Yudith Mcgraw NP HEMATOLOGY Final Result [facility] [address] [place] [address] * (ABNORMAL) CBC WITH AUTO DIFFERENTIAL (09/17/2024 11:43 AM WET MILLING WHEEL OPERATOR) Only the most recent of6 resultswithin the time period is included. WHITE BLOOD COUNT 7.2 4.5 - 11.0 thou/cu mm 09/17/2024 11:49 AM [facility] RED BLOOD COUNT 4.13(L) 4.30 - 5.90 mil/cu mm 09/17/2024 11:49 AM [facility] HEMOGLOBIN 12.4(L) 13.5 - 17.5 g/dL 09/17/2024 11:49 AM [facility] HEMATOCRIT 39.4 37.0 - 53.0 % 09/17/2024 11:49 AM [facility] MCV 95 80 - 100 fL 09/17/2024 11:49 AM [facility] MCH 30.0 26.0 - 34.0 pg 09/17/2024 11:49 AM [facility] MCHC 31.5(L) 32.0 - 36.0 g/dL 09/17/2024 11:49 AM [facility] RDW 14.6 11.5 - 15.5 % 09/17/2024 11:49 AM [facility] PLATELET COUNT 155 140 - 440 thou/cu mm 09/17/2024 11:49 AM [facility] MPV 10.6 6.5 - 11.0 fL 09/17/2024 11:49 AM [facility] % NEUT 60.5 % 09/17/2024 11:49 AM [facility] % LYMPH 27.8 % 09/17/2024 11:49 AM [facility] % MONO 9.6 % 09/17/2024 11:49 AM [facility] % EOS 1.8 % 09/17/2024 11:49 AM [facility] % BASO 0.3 % 09/17/2024 11:49 AM [facility] ABSOLUTE NEUTROPHILS 4.4 1.7 - 7.0 thou/cu mm 09/17/2024 11:49 AM [facility] ABSOLUTE LYMPHOCYTES 2.0 0.9 - 2.9 thou/cu mm 09/17/2024 11:49 AM [facility] ABSOLUTE MONOCYTES 0.7 <0.9 thou/cu mm 09/17/2024 11:49 AM [facility] ABSOLUTE EOSINOPHILS 0.1 <0.5 thou/cu mm 09/17/2024 11:49 AM [facility] ABSOLUTE BASOPHILS 0.0 <0.3 thou/cu mm 09/17/2024 11:49 AM [facility] Blood BLOOD SPECIMEN / Unknown Line/Port / Unknown 09/17/2024 11:43 AM WET MILLING WHEEL OPERATOR 09/17/2024 11:46 AM [facility] - 09/17/2024 11:49 AM [facility] Picc line Picc line Yudith Mcgraw NP HEMATOLOGY Final Result [facility] [address] [place] [address] * (ABNORMAL) C-REACTIVE PROTEIN (09/17/2024 11:43 AM [facility]) Only the most recent of2 resultswithin the time period is included. C-REACTIVE PROTEIN 1.2(H) <0.5 mg/dL 09/17/2024 12:04 PM [facility] Blood BLOOD SPECIMEN / Unknown Line/Port / Unknown 09/17/2024 11:43 AM WET MILLING WHEEL OPERATOR 09/17/2024 11:46 AM WET MILLING WHEEL OPERATOR Yudith Mcgraw NP CHEMISTRY Final Result [facility] [address] [place] [address] * (ABNORMAL) BASIC METABOLIC PANEL (09/03/2024 2:00 PM CDT) Only the most recent of4 resultswithin the time period is included. SODIUM 136 136 - 145 mmol/L 09/03/2024 2:50 PM [facility] POTASSIUM 3.9 3.5 - 5.1 mmol/L 09/03/2024 2:50 PM [facility] CHLORIDE 97(L) 98 - 107 mmol/L 09/03/2024 2:50 PM [facility] CO2,TOTAL 28 22 - 29 mmol/L 09/03/2024 2:50 PM [facility] ANION GAP 11 5 - 18 09/03/2024 2:50 PM [facility] GLUCOSE 126(H) 70 - 99 mg/dL 09/03/2024 2:50 PM [facility] CALCIUM 9.6 8.8 - 10.2 mg/dL 09/03/2024 2:50 PM [facility] BUN 21 8 - 23 mg/dL 09/03/2024 2:50 PM [facility] CREATININE 0.69(L) 0.70 - 1.20 mg/dL 09/03/2024 2:50 PM [facility] BUN/CREAT RATIO 30(H) 10 - 20 2:50 PM [facility] eGFR >90 >90 mL/min/1.7 3m2 09/03/2024 2:50 PM [facility] Comment:As of [...] CDT 09/03/2024 2:37 PM CDT Yudith Mcgraw CYBER SECURITY INSTRUCTOR CHEMISTRY Final Result Performing Organization Address [facility] Co de Phone Number [facility] [address] [place] [address] * EXTRA TUBE LAVENDER (07/23/2024 10:59 AM CDT) Blood BLOOD SPECIMEN / Unknown Extra Tube / Unknown 07/23/2024 10:59 AM CDT 07/23/2024 11:06 AM CDT Doctor Unknown LABORATORY Final Result Performing Organization Address [facility] Co de Phone Number [facility] [address] [place] [address] * EXTRA TUBE BLUE (07/23/2024 10:59 AM CDT) Blood BLOOD SPECIMEN / Unknown Extra Tube / Unknown 07/23/2024 10:59 AM CDT 07/23/2024 11:06 AM CDT Doctor Unknown LABORATORY Final Result Performing Organization Address [facility] Co de Phone Number [facility] [address] [place] [address] * XR CHEST 1 VIEW PORTABLE (07/23/2024 [...] MD @ 07/23/2024 10:18:57 AM (Electronically Signed) us Toni Cooley RN GENERAL IMAGING Final Result * SCAN-OPERATIVE/PROCEDURE REPORT (07/23/2024 12:00 AM CDT) Narrative 07/23/2024 12:00 AM CDT Ordered by an unspecified provider. us Other Clinical Staff OTHER Final Resul t from Last 3 Months Additional Health Concerns [...] days prior to collection 03/13/2018 03/20/2024 Insurance MEDICARE PB ONLY MEDICARE PART B HB ONLY FOR [employer] MEDICARE PART A HB ONLY MEDICARE PART B HB ONLY [facility] HC MEDICARE PPS Advance Directives Documents on File Type Date Recorded Patient Ticket Marker Expl anation Treatment Guidelines 08/04/2024 Healthcare Directive [...] Code Status Discussion: Reviewed Preferences Care Teams Services Delivery Driver Relationship Specialty Start Date End Date Franklin Squires MD [address] [facility] [place] [address] PCP - General Family Practice 10/18/15 Zelalem Cohen MD Physical Therapist 03/13/12 May Randle MD Physical Medicine and Rehabilitation 03/13/12 [place], ANTHONY KruegerW [address] [place] [address] Administrative Library Assistant 05/03/17 Diane Charles MD [address] [place] [address] Surgery - Urology 01/17/23 Julia Ware, RN [address] [place] [address] Registered Nurse 07/17/23
--- OUTSIDE RECORDS SUMMARY | 2024-10-19 12:45 | XMS_ITS | Encounter Summary ---
Author Organization [facility] Address [address] [address] Care Team Providers Care Manager Urgent Care Name Role Phone Franklin Squires MD Primary Care Provider Encounter Details Date Type Department Care Team (Late st Contact Info) Description 06/07/2015 Correspondence [facility] Radiology [address] [place] [address] Radiology, Provider MRI SAFETY SHEET AND COMPATIBILITY [...] filedocumented in this encounter Care Teams Manager Urgent Care Relationship Specialty Start Date End Date Franklin Squires MD [address] [place], [place] [address] [address] PCP - General Family Practice 03/08/16 documented as of this encounter
--- OUTSIDE RECORDS SUMMARY | 2024-10-19 12:45 | XMS_ITS | Encounter Summary ---
Author Organization [facility] Address [address] [address] Care Team Providers Care Aged Or Disabled Carer Name Role Phone Franklin Squires MD Primary Care Provider Encounter Details Date Type Department Care Team (Late st Contact Info) Description 01/06/[address] [facility] Radiology [address] [place] [address] Radiology, Provider MRI SAFETY SHEET AND COMPATIBILITY [...] on filedocumented in this encounter Care Teams Aged Or Disabled Carer Relationship Specialty Start Date End Date Franklin Squires MD [address] [place], [place] [address] [address] PCP - General Family Practice 03/08/16 documented as of this encounter
--- OUTSIDE RECORDS SUMMARY | 2024-10-19 12:45 | XMS_ITS | Encounter Summary ---
Author Organization [facility] Address [address], [place] [address] Care Team Providers Care C Iron Worker Name Role Phone Franklin Squires MD Primary Care Provider [phone] Encounter Details Date Type Department Care Team (Latest Contact Info) Description 12/11/2017 Correspondence Physiatry/Physical Medicine at [facility] [address] [facility] [place] [address] May Randle MD [address] [place] [address] [employer] Social History Tobacco Use [...] Start Date End Date Franklin Squires MD [address] [place] [address] [place] [address] PCP - General Family Practice 03/08/16 documented as of this encounter
--- OUTSIDE RECORDS SUMMARY | 2024-10-19 12:45 | XMS_ITS | Encounter Summary ---
Author Organization [facility] Address [address] [address] Care Team Providers Care Bus Inspector Name Role Phone Franklin Squires MD Primary Care Provider Encounter Details Date Type Department Care Team (Late st Contact Info) Description 08/20/2014 Outside Hospital External to [facility]-H/P Social History Tobacco [...] filedocumented in this encounter Care Teams Bus Inspector Relationship Specialty Start Date End Date Franklin Squires MD [address] [place], [place] [address] [address] PCP - General Family Practice 03/08/16 documented as of this encounter
--- OUTSIDE RECORDS SUMMARY | 2024-10-19 12:45 | XMS_ITS | Encounter Summary ---
Author Organization [facility] Address [address], [place] [address] Care Team Providers Care Marriage And Family Therapist Name Role Phone Franklin Squires MD Primary Care Provider Encounter Details Date Type Department Care Team (Late st Contact Info) Description 11/23/2015 Correspondence External to External, [place] [address] LETTER [facility] Social History Tobacco Use Types Packs/Day Years [...] on filedocumented in this encounter Care Teams Marriage And Family Therapist Relationship Specialty Start Date End Date Franklin Squires MD [address] [place] [address] [place] [address] PCP - General Family Practice 03/08/16 documented as of this encounter
--- OUTSIDE RECORDS SUMMARY | 2024-10-19 12:45 | XMS_ITS | Encounter Summary ---
Author Organization [facility] Address [address], [place] [address] Care Team Providers Care Signal Fitter Name Role Phone Franklin Squires MD [...] on filedocumented in this encounter Care Teams Signal Fitter Relationship Specialty Start Date End Date Franklin Squires MD [address] [facility] [address] PCP - General Family Practice 03/08/16 documented as of this encounter
--- OUTSIDE RECORDS SUMMARY | 2024-10-19 12:45 | XMS_ITS | Clinical Summary ---
Author Organization [facility] Address [address] [place] [address] Care Team Providers Care Bi Tri Operator Name Role Phone Franklin Squires MD Primary Care Provider [phone] Source Comments You are receiving this document [...] for each transition of care or referral. 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 0 02/17/2014 [...] Comments Blood Pressure 120/63 01/18/2022 12:59 PM MECHANICAL PLANNER Pulse 87 01/18/2022 12:59 PM MECHANICAL PLANNER Temperature 36.3 C (97.4 F) 01/18/2022 12:59 PM MECHANICAL PLANNER Respiratory Rate 16 05/24/2016 4:27 PM CDT [...] this topic Medical Devices Implanted Type Area Special Service Representative Device Identifier Shelf Expiration Date Model / Serial / Lot [id number] 4ml Tisseel Explanted:([place] ntity not on file) BIOLOGIC N/A: NECK Lynne Fenwall 09/10/2011 [id number] / [id number] / [id number] Description:posterior Cath Intrathecal Indura - [id number] Implanted:Qty: 1 on 05/09/2010 at [facility] DEVICE Right: LUMBAR SPINE [employer] 01/18/2012 8709 / N/A / [id number] 5 Cath Intrathecal Indura - [id number] Implanted:Qty: 1 on 05/29/2010 at [facility] DEVICE REG[employer] 8709 / / Scr Indira Conic 7.3x80 - [id number] Implanted:Qty: 1 on 03/13/2011 at [facility] DEVICE Right: FEMUR DISTAL Synthes [facility] 0 / NONE / NONE Plt Lcp Cndl Rt 4.5x170 6h - [id number] Implanted:Qty: 1 on 03/13/2011 at [facility] DEVICE Right: FEMUR DISTAL [employer] 222.656 / NONE / NONE Description:6 hole 170mm rig ht 4.5mm lcp condylar plate Scr Didier Ss Sftp 4.5x40 - [id number] Implanted:Qty: 1 on 03/13/2011 at [facility] DEVICE Left: FEMUR DISTAL [employer] 214.840 / NONE / NONE Scr Didier Ss Sftp 4.5x50 - [id number] Implanted:Qty: 1 on 03/13/2011 at [facility] DEVICE Left: FEMUR DISTAL [employer] 214.850 / NONE / NONE Scr Indira Lk 5.0x80 - [id number] Implanted:Qty: 2 on 03/13/2011 at [facility] DEVICE Left: FEMUR DISTAL [employer] 02.205.08 0 / NONE / NONE Scr Indira Lk 5.0x85 - [id number] Implanted:Qty: 2 on 03/13/2011 at [facility] DEVICE Left: FEMUR DISTAL [employer] 02.205.08 5 / NONE / NONE Scr Lk Sftp T25 5.0x50 - [id number] Implanted:Qty: 1 on 03/13/2011 at [facility] DEVICE Left: FEMUR DISTAL [employer] 212.219 / NONE / NONE Scr Lk Sftp T25 5.0x60 - [id number] Implanted:Qty: 1 on 03/13/2011 at [facility] DEVICE Left: FEMUR DISTAL [employer] 212.221 / NONE / NONE Scr Indira Conic 7.3x85 - [id number] Implanted:Qty: 1 on 03/13/2011 at [facility] DEVICE Left: FEMUR DISTAL [employer] 02.207.28 5 / NONE / NONE Plt Lcp Cndl Lt 4.5x170 6h - [id number] Implanted:Qty: 1 on 03/13/2011 at [facility] DEVICE Left: FEMUR DISTAL [employer] 222.657 / NONE / NONE Description:6 hole 170mmleng th left 4.5mm lcp condylar plate. Scr Didier Sftp 3.5x60 F-Thrd - [id number] Implanted:Qty: 1 on 03/13/2011 at [facility] DEVICE Left: TIBIA PROXIMAL [employer] 204.860 / NONE / NONE Scr Star Lk Sftp 3.5x32 - [id number] Implanted:Qty: 1 on 03/13/2011 at [facility] DEVICE Left: TIBIA PROXIMAL [employer] 212.112 / NONE / NONE Scr Star Lk Sftp 3.5x55 - [id number] Implanted:Qty: 2 on 03/13/2011 at [facility] DEVICE Left: TIBIA PROXIMAL [employer] 212.123 / NONE / NONE Scr Star Lk Sftp 3.5x60 - [id number] Implanted:Qty: 2 on 03/13/2011 at [facility] DEVICE Left: TIBIA PROXIMAL [employer] [place] 212.124 / NONE / NONE Plt Lcp M/Prox Lt 3.5x94 4h - [id number] Implanted:Qty: 1 on 03/13/2011 at [facility] DEVICE Left: TIBIA PROXIMAL [employer] 239.955 / NONE / NONE Scr Didier Ss Sftp 4.5x36 - [id number] Implanted:Qty: 1 on 03/13/2011 at [facility] DEVICE Right: FEMUR DISTAL [employer] 214.836 / NONE / NONE Scr Didier Ss Sftp 4.5x44 - [id number] Implanted:Qty: 1 on 03/13/2011 at [facility] DEVICE Right: FEMUR DISTAL [employer] 214.844 / NONE / NONE Scr Indira Lk 5.0x75 - [id number] Implanted:Qty: 1 on 03/13/2011 at [facility] DEVICE Right: FEMUR DISTAL [employer] 02.205.07 5 / NONE / NONE Scr Indira Lk 5.0x85 - [id number] Implanted:Qty: 2 on 03/13/2011 at [facility] DEVICE Right: FEMUR DISTAL [employer] 02.205.08 5 / NONE / NONE Scr Lk Sftp T25 5.0x44 - [id number] Implanted:Qty: 1 on 03/13/2011 at [facility] DEVICE Right: FEMUR DISTAL [employer] 212.216 / NONE / NONE Scr Lk Sftp T25 5.0x65 - [id number] Implanted:Qty: 1 on 03/13/2011 at [facility] DEVICE Right: FEMUR DISTAL [employer] 212.222 / NONE / NONE Plt Lp T Ti Str 4h - [id number] Implanted:Qty: 3 on 07/28/2014 by Cooper Shelley MD at [facility] DEVICE Right: SKULL [employer]ynthes [place] 421.504 / / Scr Matrix Sfdr 4mm - [id number] Implanted:Qty: 6 on 07/28/2014 by Cooper Shelley MD at [facility] DEVICE Right: SKULL [employer]ynthes [place] 04503.10 4.01 / / Lead Linear 3-4 8 Contact 50cm - [id number] Implanted:Qty: 1 on 03/08/2016 by Zelalem Cohen DO at [facility] DEVICE N/A: OTHER-SEE DESCRIPTION [employer] [facility] 09/10/2017 [id number] 2500 / / [id number] Description:LUMBAR Lead Linear 3-4 8 Contact 50cm - [id number] Implanted:Qty: 1 on 03/08/2016 by Zelalem Cohen DO at [facility] DEVICE N/A: OTHER-SEE DESCRIPTION [employer] [facility] 09/10/2017 [id number] 2500 / / [id number] Description:LUMBAR Lead Linear 3-4 8 Contact 50cm - [id number] Implanted:Qty: 1 on 03/08/2016 by Zelalem Cohen DO at [facility] DEVICE N/A: OTHER-SEE DESCRIPTION [employer] [facility] 09/10/2017 [id number] 2500 / / [id number] Description:LUMBAR Lead Linear 3-4 8 Contact 50cm - [id number] Implanted:Qty: 1 on 03/08/2016 by Zelalem Cohen DO at [facility] DEVICE N/A: OTHER-SEE DESCRIPTION [employer] [facility] 09/10/2017 [id number] 2500 / / [id number] Description:LUMBAR Lead Linear 3-4 8 Contact 50cm - [id number] Implanted:Qty: 1 on 05/24/2016 by Zelalem Cohen DO at [facility] DEVICE N/A: SPINE LUMBAR POSTERIOR [employer] [facility] 01/31/2018 [id number] 2500 / [id number] / Lead Linear 3-4 8 Contact 50cm - [id number] Implanted:Qty: 1 on 05/24/2016 by Zelalem Cohen DO at [facility] DEVICE N/A: SPINE LUMBAR POSTERIOR [employer] [facility] 04/26/2018 [id number] 2500 / [id number] / Lead Linear 3-4 8 Contact 50cm - [id number] Implanted:Qty: 1 on 05/24/2016 by Zelalem Cohen DO at [facility] DEVICE N/A: SPINE LUMBAR POSTERIOR [employer] [facility] 04/26/2018 [id number] 2500 / [id number] / Lead Linear 3-4 8 Contact 50cm - [id number] Implanted:Qty: 1 on 05/24/2016 by Zelalem Cohen DO at [facility] DEVICE N/A: SPINE LUMBAR POSTERIOR [employer] [facility] 04/26/2018 [id number] 2500 / [id number] / Generator Pulse Spectra - [id number] Implanted:Qty: 1 on 05/24/2016 by Zelalem Cohen DO at [facility] DEVICE N/A: SPINE LUMBAR POSTERIOR [employer] [facility] 05/08/2018 [id number] 20 / [id number] / [id number] [employer] - [id number] Implanted:Qty: 1 on 05/24/2016 by Zelalem Cohen DO at [facility] DEVICE N/A: SPINE LUMBAR POSTERIOR [employer] [facility] 05/02/2018 [id number] 60 / / [id number] [employer] - [id number] Implanted:Qty: 1 on 05/24/2016 by Zelalem Cohen DO at [facility] DEVICE N/A: SPINE LUMBAR POSTERIOR [employer] [facility] 02/28/2018 [id number] 60 / / [id number] Procedures Procedure Name Priority Date/Time Associated Diagnosis Comments CREATININE/GFR, WB POC Routine 01/06/2016 12:04 PM MECHANICAL PLANNER Back pain, 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 HGB A1C Routine 07/29/2014 3:19 AM CDT from Last 3 Months or Most Recently Relevant to Health Maintenance Results * CREATININE/GFR, WB POC (01/06/2016 12:04 PM MECHANICAL PLANNER) [facility] Creat Whole Blood 0.9 0.66 - 1.25 mg/dl [facility] GFR, Estimated >60 >60 ml/min/1.7 3m2 [facility] GFR, Est., If Black >60 >60 ml/min/1.7 3m2 [facility] 01/06/2016 12:0 4 PM MECHANICAL PLANNER 01/06/2016 12:21 PM MECHANICAL PLANNER Trae Blair MD LAB_1 [facility] [phone] * (ABNORMAL) HGB A1C (07/29/2014 3:19 AM CDT) [facility] Hgb A1c 6.4(H) 4.3 - 6.1 % [facility] Comment: The usual A1C goal for people with diabetes, age 18-75, is <8.0%. Physicians may recommend a higher or lower goal for specific individuals. 07/29/2014 3:19 AM CDT 07/29/2014 3:[address] [facility] - 07/29/2014 12:53 PM CDT Performed at [facility], [address] [place] [address] [place] Wei PA-C LAB_[address] [address] from Last 3 Months or Most Recently [...] 5:44 PM 07/28/2014 6:50 PM Care Teams Bi Tri Operator Relationship Specialty Start Date End Date Franklin Squires MD [address] [place] [address] PCP - General Family Practice 03/08/16
--- OUTSIDE RECORDS SUMMARY | 2024-10-19 12:45 | XMS_ITS | Encounter Summary ---
Author Organization [facility] Address [address], [place] [address] Care Team Providers Care Nursery Teacher Name Role Phone Franklin Squires MD [...] on filedocumented in this encounter Care Teams Nursery Teacher Relationship Specialty Start Date End Date Franklin Squires MD 100 [facility] [place] [address] PCP - General Family Practice 03/08/16 documented as of this encounter
--- OUTSIDE RECORDS SUMMARY | 2024-10-19 12:45 | XMS_ITS | Encounter Summary ---
Author Organization [facility] Address [address], [place] [address] Care Team Providers Care Car Repair Supervisor Name Role Phone Franklin Squires MD Primary Care Provider Encounter Details Date Type Department Care Team (Late st Contact Info) Description 08/20/2014 Outside Hospital External to [facility]-ADMIT H/P Social History Tobacco Use Types [...] filedocumented in this encounter Care Teams Car Repair Supervisor Relationship Specialty Start Date End Date [facility] Squires MD [address] [facility] [address] PCP - General Family Practice 03/08/16 documented as of this encounter
--- OUTSIDE RECORDS SUMMARY | 2024-10-19 12:45 | XMS_ITS | Encounter Summary ---
Author Organization [facility] [address], [place] [address] Care Team Providers Care Automobile Insurance Claim Examiner Name Role Phone Franklin Squires MD Primary Care Provider Encounter Details Date Type Department Care Team (Late st Contact Info) Description 11/10/2014 Correspondence [facility] Physical Therapy [address] [place] [address] Trudi Raymundo, PT [address] [place] [address] LETTER OF MEDICAL NECESSITY Social History Tobacco [...] filedocumented in this encounter Care Teams Automobile Insurance Claim Examiner Relationship Specialty Start Date End Date Franklin Squires MD 100 [facility] [place] [address] PCP - General Family Practice 03/08/16 documented as of this encounter
--- OUTSIDE RECORDS SUMMARY | 2024-10-19 12:45 | XMS_ITS | Encounter Summary ---
Author Organization [facility] Address [address], [place] [address] Care Team Providers Care Caser Name Role Phone Franklin Squires MD Primary Care Provider Encounter Details Date Type Department Care Team (Late st Contact Info) Description 09/07/2014 Correspondence [facility] Radiology [address] [place] [address] Radiology, Provider MRI SAFETY SHEET AND COMPATIBILITY [...] on filedocumented in this encounter Care Teams Caser Relationship Specialty Start Date End Date Franklin Squires MD [address] [place], [place] [address] [address] PCP - General Family Practice 03/08/16 documented as of this encounter
--- OUTSIDE RECORDS SUMMARY | 2024-10-19 12:45 | XMS_ITS ---
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 Treatments may have been administered in another system. Resolved Problems Problem Noted Date Diagnosed Date Resolved Date Gait abnormality 01/17/2012 02/09/2015 Back pain 01/17/2012 02/09/2015 Paraplegia 04/04/2011 02/09/2015 Osteoporosis 03/06/2011 02/09/2015 Urinary tract infection 12/24/200603/11
--- OUTSIDE RECORDS SUMMARY | 2024-10-19 12:45 | XMS_ITS | Encounter Summary ---
Author Organization [facility] Address [address], [place] [address] Care Team Providers Care Manager Of Warehouse Name Role Phone Franklin Squires MD Primary Care Provider Encounter Details Date Type Department Care Team (Late st Contact Info) Description 12/14/2014 Correspondence [facility] 401 Physical Medicine [address] [place] [address] May Randle MD [address] [place] [address] DETAILED PRODUCT DESCRIPTION Social History Tobacco Use [...] in this encounter Care Teams Manager Of Warehouse Relationship Specialty Start Date End Date Franklin Squires MD 100 [facility] [place] [address] PCP - General Family Practice 03/08/16 documented as of this encounter
--- OUTSIDE RECORDS SUMMARY | 2024-10-19 12:45 | XMS_ITS | Encounter Summary ---
Author Organization [facility] Address [address], [place] [address] Care Team Providers Care It Support Analyst Name Role Phone Franklin Squires MD Primary Care Provider [phone] Encounter Details Date Type Department Care Team (Late st Contact Info) Description 12/16/2014 Correspondence External to External, [place] [address] MEDICARE PLAN OF CARE RECERT Social History [...] filedocumented in this encounter Care Teams It Support Analyst Relationship Specialty Start Date End Date Franklin Squires MD [address] [place] [address] [facility] [place] [place] [address] PCP - General Family Practice 03/08/16 documented as of this encounter
--- OUTSIDE RECORDS SUMMARY | 2024-10-19 12:46 | XMS_ITS | Encounter Summary ---
Author Organization [facility] Address [address] [address] Care Team Providers Care Continuous Drier Operator Name Role Phone Franklin Squires MD Primary Care Provider [phone] Encounter Details Date Type Department Care Team (Late st Contact Info) Description 07/23/2013 Correspondence Specialty [facility] 401 Interventional Pain Management 401 [facility] [place] [address] Zelalem Cohen DO [address] [place] [address] EXPRESS S[employer] Social History Tobacco Use Types [...] Cohen MD - 07/23/2013 12:00 AM CDT SIVE WHEEL MOLDER documented in this encounter Plan of Treatment Not on file documented as of this encounter Visit Diagnoses Not on filedocumented in this encounter Care Teams Continuous Drier Operator Relationship Specialty Start Date End Date Franklin Squires MD 100 [facility] [address] PCP - General Family Practice 03/08/16 documented as of this encounter
--- OUTSIDE RECORDS SUMMARY | 2024-10-19 12:46 | XMS_ITS | Encounter Summary ---
Author Organization [facility] Address [address], [place] [address] Care Team Providers Care Corporate Legal Secretary Name Role Phone Franklin Squires MD Primary Care Provider [phone] Encounter Details Date Type Department Care Team (Late st Contact Info) Description 09/17/2013 Correspondence External to External, [place] [address] EMPOWERMENT RULES Social History Tobacco Use Types [...] External, Provider - 09/17/2013 12:00 AM CST SPRING FABRICATION SUPERVISOR documented in this encounter Plan of Treatment Not on file documented as of this encounter Visit Diagnoses Not on filedocumented in this encounter Care Teams Corporate Legal Secretary Relationship Specialty Start Date End Date Franklin Squires MD 100 [facility] [place] [address] PCP - General Family Practice 03/08/16 documented as of this encounter
--- OUTSIDE RECORDS SUMMARY | 2024-10-19 12:46 | XMS_ITS | Encounter Summary ---
Author Organization [facility] Address [address], [place] [address] Care Team Providers Care Acid Splicer Name Role Phone Franklin Squires MD Primary [...] filedocumented in this encounter Care Teams Acid Splicer Relationship Specialty Start Date End Date Franklin Squires MD 100 [facility] [place] [address] PCP - General Family Practice 03/08/16 documented as of this encounter
--- OUTSIDE RECORDS SUMMARY | 2024-10-19 12:46 | XMS_ITS | Encounter Summary ---
Author Organization [facility] Address [address] [address] Care Team Providers Care Virology Teacher Name Role Phone Franklin Squires MD Primary Care Provider Encounter Details Date Type Department Care Team (Late st Contact Info) Description 04/24/2012 Correspondence [facility] Radiology [address] [place] [address] Radiology, Provider MRI SAFETY SHEET AND COMPATIBILITY [...] on filedocumented in this encounter Care Teams Virology Teacher Relationship Specialty Start Date End Date Franklin Squires MD 100 [facility] [place] [address] PCP - General Family Practice 03/08/16 documented as of this encounter
--- OUTSIDE RECORDS SUMMARY | 2024-10-19 12:46 | XMS_ITS | Encounter Summary ---
Author Organization [facility] Address [address], [place] [address] Care Team Providers Care Welfare Aide Name Role Phone Franklin Squires MD Primary Care Provider [phone] Encounter Details Date Type Department Care Team (Late st Contact Info) Description 05/04/2014 [facility]ence [facility] 401 Physical Medicine 401 [facility] [place] [address] May Randle MD [address] [place] [address] LETTER OF MEDICAL NECESSITY FOR A WHEELCHAIR [...] filedocumented in this encounter Care Teams Welfare Aide Relationship Specialty Start Date End Date Franklin Squires MD 100 [facility] [place] [address] PCP - General Family Practice 03/08/16 documented as of this encounter
--- OUTSIDE RECORDS SUMMARY | 2024-10-19 12:46 | XMS_ITS | Encounter Summary ---
Author Organization [facility] Address [address], [place] [address] Care Team Providers Care Truck Car And Bus Cleaner Name Role Phone Franklin Squires MD Primary Care Provider [phone] Encounter Details Date Type Department Care Team (Late st Contact Info) Description 04/20/[address] [address] Radiology, Provider MRI SAFETY SHEET AND COMPATIBILITY [...] filedocumented in this encounter Care Teams Truck Car And Bus Cleaner Relationship Specialty Start Date End Date Franklin Squires MD 100 [facility] [place] [address] PCP - General Family Practice 03/08/16 documented as of this encounter
--- OUTSIDE RECORDS SUMMARY | 2024-10-19 12:46 | XMS_ITS | Encounter Summary ---
[facility] Address [address] [address] Care Team Providers Care Production Line Solderer Name Role Phone Franklin Squires MD Primary Care Provider [phone] Encounter Details Date Type Department Care Team (Late st Contact Info) Description 07/28/2014 Outside Hospital External to External, Provider No address [address] ER VISIT/TRANSFER Social History Tobacco [...] on filedocumented in this encounter Care Teams Production Line Solderer Relationship Specialty Start Date End Date Franklin Squires MD 100 [facility] [place] [address] PCP - General Family Practice 03/08/16 documented as of this encounter
--- OUTSIDE RECORDS SUMMARY | 2024-10-19 12:46 | XMS_ITS | Encounter Summary ---
Author Organization [facility] Address [address], [place] [address] Care Team Providers Care Emergency Medicine Nurse Practitioner Name Role Phone Franklin Squires MD Primary Care Provider [phone] Encounter Details Date Type Department Care Team (Late st Contact Info) Description 12/16/2013 Correspondence [facility] Radiology [address] [place] [address] Radiology, Provider MRI SAFETY SHEET AND COMPATIBILITY [...] Radiology, Provider - 12/16/2013 12:00 AM CST ISTRY QUALITY CONTROL TECHNICIAN documented in this encounter Plan of Treatment Not on file documented as of this encounter Visit Diagnoses Not on filedocumented in this encounter Care Teams Emergency Medicine Nurse Practitioner Relationship Specialty Start Date End Date Franklin Squires MD 100 [facility] [place] [address] PCP - General Family Practice 03/08/16 documented as of this encounter
--- OUTSIDE RECORDS SUMMARY | 2024-10-19 12:46 | XMS_ITS | Encounter Summary ---
Author Organization [facility] Address [address], [place] [address] Care Team Providers Care All Terrain Vehicle Technician Name Role Phone Franklin Squires MD Primary Care Provider [phone] Encounter Details Date Type Department Care Team (Latest Contact Info) Description 06/04/2014 Correspondence [facility] 401 Interventional Pain Management 401 [place] [address] Zelalem Cohen, DO [address] [place] [address] MEDICAID PT INFORMATION EMPI RECOVERY Social History [...] filedocumented in this encounter Care Teams All Terrain Vehicle Technician Relationship Specialty Start Date End Date Franklin Squires MD 100 [facility] [place] [address] PCP - General Family Practice 03/08/16 documented as of this encounter
--- OUTSIDE RECORDS SUMMARY | 2024-10-19 12:46 | XMS_ITS | Encounter Summary ---
Author Organization [facility] [address], [place] [address] Care Team Providers Care Soyfreeze Operator Name Role Phone Franklin Squires MD Primary Care Provider [phone] Encounter Details Date Type Department Care Team (Late st Contact Info) Description 02/05/2014 Correspondence [place] [facility] Physical Therapy [address] [place] [address] Trudi Raymundo, PT [address] [place] [address] LETTER OF MEDICAL NECESSITY FOR A WHEELCHAIR [...] Squires MD 100 [facility] [place] [address] PCP - General Family Practice 03/08/16 documented as of this encounter
--- OUTSIDE RECORDS SUMMARY | 2024-10-19 12:46 | XMS_ITS | Encounter Summary ---
Author [facility] Address [address], [place] [address] Care Team Providers Care English Instructor Name Role Phone Franklin Squires MD [...] filedocumented in this encounter Care Teams English Instructor Relationship Specialty Start Date End Date Franklin Squires MD 100 [facility] [place] [address] PCP - General Family Practice 03/08/16 documented as of this encounter
--- OUTSIDE RECORDS SUMMARY | 2024-10-19 12:46 | XMS_ITS | Encounter Summary ---
Author Organization [facility] [address], [place] [address] Care Team Providers Care Career Development Associate Name Role Phone Franklin Squires MD Primary Care Provider [phone] Encounter Details Date Type Department Care Team (Late st Contact Info) Description 10/26/2013 Correspondence [facility] Physical Therapy [address] [place] [address] Trudi Raymundo, PT [address] [place] [address] LETTER OF MEDICAL NECESSITY Social History Tobacco [...] Raymundo, PT - 10/26/2013 12:00 AM CST TRIC MOTORS SALESPERSON documented in this encounter Plan of Treatment Not on file documented as of this encounter Visit Diagnoses Not on filedocumented in this encounter Care Teams Career Development Associate Relationship Specialty Start Date End Date Franklin Squires MD 100 [facility] [place] [address] PCP - General Family Practice 03/08/16 documented as of this encounter
--- OUTSIDE RECORDS SUMMARY | 2024-10-19 12:46 | XMS_ITS | Encounter Summary ---
Author Organization [facility] Address [address] [address] Care Team Providers Care Gearcase Assembler Name Role Phone Franklin Squires MD Primary Care Provider Encounter Details Date Type Department Care Team (Late st Contact Info) Description 03/11/2014 Correspondence [facility] 401 Interventional Pain Management 401 [facility] [place] [address] Zelalem Cohen, DO [address] [place] [address] EMPI Social History Tobacco Use Types Packs/Day [...] on filedocumented in this encounter Care Teams Gearcase Assembler Relationship Specialty Start Date End Date Franklin Squires MD 100 [facility] [place] [address] PCP - General Family Practice 03/08/16 documented as of this encounter
--- OUTSIDE RECORDS SUMMARY | 2024-10-19 12:46 | XMS_ITS | Encounter Summary ---
Author Organization [facility] Address [address], [place] [address] Care Team Providers Care Breaking Machine Operator Name Role Phone Franklin Squires MD Primary Care Provider [phone] Encounter Details Date Type Department Care Team [...] on filedocumented in this encounter Care Teams Breaking Machine Operator Relationship Specialty Start Date End Date Franklin Squires MD 100 [facility] [place] [address] PCP - General Family Practice 03/08/16 documented as of this encounter
--- OUTSIDE RECORDS SUMMARY | 2024-10-19 12:46 | XMS_ITS | Encounter Summary ---
Author Organization [facility] Address [address] [address] Care Team Providers Care Scruff Worker Name Role Phone Franklin Squires MD Primary Care Provider Encounter Details Date Type Department Care Team (Late st Contact Info) Description 11/13/2012 Correspondence [facility] Radiology [address] [place] [address] Radiology, Provider MRI SAFETY SHEET AND COMPATIBILITY [...] RADIOLOGY, PROVIDER - 11/13/2012 12:00 AM CST ITECT IN TRAINING documented in this encounter Plan of Treatment Not on file documented as of this encounter Visit Diagnoses Not on filedocumented in this encounter Care Teams Scruff Worker Relationship Specialty Start Date End Date Franklin Squires MD 100 [facility] [place] [address] PCP - General Family Practice 03/08/16 documented as of this encounter
--- OUTSIDE RECORDS SUMMARY | 2024-10-19 12:46 | XMS_ITS | Encounter Summary ---
Author Organization [facility] Address [address] [address] Care Team Providers Care Campaign Manager Name Role Phone Franklin Squires MD Primary Care Provider Encounter Details Date Type Department Care Team (Late st Contact Info) Description 06/11/2014 Correspondence [facility] 401 Physical Medicine 401 [facility] [place] [address] May Randle MD [address] [place] [address] [facility] Social History Tobacco Use Types Packs/Day [...] on filedocumented in this encounter Care Teams Campaign Manager Relationship Specialty Start Date End Date Franklin Squires MD 100 [facility] [place] [address] PCP - General Family Practice 03/08/16 documented as of this encounter
== END 2024-10-19 12:43 | disposition home or self-care (01) ==
LOC: WOUND 12:42
PROVIDERS: PCP Family Medicine; Visit Provider Nurse Practitioner Family
DX: M86.68 Other chronic osteomyelitis, other site (principal); L89.324 Pressure ulcer of left buttock, stage 4; G82.50 Quadriplegia, unspecified; Z99.3 Dependence on wheelchair
CPT/HCPCS: 15271; Q4201

== ENCOUNTER 2024-10-26 12:44 | Outpatient (CLI) | payer MEDICARE, OTHER, SELFPAY ==
--- OUTSIDE RECORDS SUMMARY | 2024-10-22 12:46 | XMS_ITS | Encounter Summary ---
Author Name [facility] [place] [facility] [place] Address [address] [place] [address] Care Team Providers Care Barn Operator Name Role Phone SHANTAL HANSON Primary [...] PART B Jul 12, 2004 PART B [id number] PP47 [phone] Kasie DEGROOT RED PATIENT MEDICARE (WNR) MEDICARE (M) PART A Oct 11, 2002 PART A [id number] [id number] [phone] Kasie DEGROOT RED PATIENT Selected Encounter This [...] [place] treatment facilities. Appointment Date/Time Appointment Type Appointme nt Facility Name May 12, 2024 01:00 PM AMBULATORY - REHAB MEDICIN E [facility] Advance Directives: All historical and current Section Date Range: From patient's date of to the date document was created. This section includes ALL of a patient's completed or amended [place] Advance and Rescinded Directives. The entries below indicate that a directive exists for the patient, but an actual copy is not included with this document. The data comes from all [place] facilities. Date Advance Directives Provider Source Feb 05, 2023 ADVANCE DIRECTIVE DISCUSSION GUSTAVO ABAD [facility] Encounter Notes: All associated encounter notes This section contains the clinical notes associated to the Encounter. Date/Time Encounter Note(s) Provider Source Nov 20, 2023 01:23 PM COMMUNITY USP CARE NOTE: LOCAL TITLE: [facility] ELIGIBILITY STANDARD TITLE: COMMUNITY USP CARE NOTE DATE OF NOTE: NOV 20, 2023@13:23 ENTRY DATE: NOV 20, 2023@13:23:07 AUTHOR: ALISON WHITLOCK EXP COSIGNER: URGENCY: STATUS: COMPLETED COMMUNITY USP ELIGIBILITY: This contact note is used to document a 's administrative eligibility for a VA authorization at a community detention. Referral Source/Location: Three [facility] Care [facility] ([facility]) Home: Contract [facility]: Yes Contact: Melany Phone Number: Reviewed the following eligibility [facility] or [facility] Authorization: No If yes: If administratively eligible, meets Medicare guidelines for skilled rehab and able/willing to participate: No has a clinical need for detention care: Yes Hospice authorization: Yes would be eligible if enrolled in hospice service Referral source contact encouraged to do the following: Contact verse writer for further questions as needed. /el/ JEM GARCIA APRN JEM Signed: 11/20/2023 13:23 ALISON WHITLOCK [facility]
== END 2024-10-26 12:45 | disposition home or self-care (01) ==
LOC: WOUND 12:44
PROVIDERS: PCP Family Medicine; Visit Provider Nurse Practitioner Family
DX: M86.68 Other chronic osteomyelitis, other site (principal); L89.324 Pressure ulcer of left buttock, stage 4; G82.50 Quadriplegia, unspecified; Z99.3 Dependence on wheelchair
CPT/HCPCS: 97597

== ENCOUNTER 2024-11-02 12:43 | Outpatient (CLI) | payer MEDICARE, OTHER, SELFPAY ==
--- OUTSIDE RECORDS SUMMARY | 2024-10-27 14:36 | XMS_ITS | Encounter Summary ---
Author Name [facility] [place] [facility] [place] Address [address] [place] [address] Care Team Providers Care Bulb Filler Name Role Phone SHANTAL HANSON Primary Care [...] PART B Jul 12, 2004 PART B [id number] PP47 [phone] Kasie DEGROOT RED PATIENT MEDICARE (WNR) MEDICARE (M) PART A Oct 11, 2002 PART A [id number] PP47 [phone] Kasie DEGROOT RED PATIENT Selected Encounter This section includes the information on record at [place] for the Encounter. Date/Time Encounter Type Encounter Description Reason Pro vider Source Nov 20, 2023 01:23 PM Outpatient Encounter TELEPHONE/ANCILLARY IHE Encounter Template Text not used by [place] Plan of Treatment: Future Appointments (+ 6 months) and Future Tests (+/- 45 days) The Plan of Treatment section includes future care activities for the patient from all [place] treatmentfacilities. This section includes future appointments and future orders which are active, pending or scheduled. Future Appointments This section includes appointments that were scheduled to occur 6 months from the date of the Encounter, up to a maximum of 20 appointments. The data comes from all [place] treatment facilities. Appointment Date/Time Appointment Type Appointme nt Facility Name May 12, 2024 01:00 PM AMBULATORY - REHAB MEDICIN E [facility] Advance Directives: All historical and current Section Date Range: From patient's date of to the date document was created. This section includes ALL of a patient's completed or amended [place] Advance and Rescinded Directives. The entries below indicate that a directive exists for the patient, but an actual copy is not included with this document. The data comes from all [place] facilities. Date Advance Directives Provider Source Feb 05, 2023 ADVANCE DIRECTIVE DISCUSSION GUSTAVO ABAD [facility] Encounter Notes: All associated encounter notes This section contains the clinical notes associated to the Encounter. Date/Time Encounter Note(s) Provider Source Nov 20, 2023 01:23 PM COMMUNITY DETENTION CARE NOTE: LOCAL TITLE: [facility] ELIGIBILITY STANDARD TITLE: COMMUNITY DETENTION CARE NOTE DATE OF NOTE: NOV 20, 2023@13:23 ENTRY DATE: NOV 20, 2023@13:23:07 AUTHOR: ALISON WHITLOCK EXP COSIGNER: URGENCY: STATUS: COMPLETED COMMUNITY DETENTION ELIGIBILITY: This contact note is used to document a 's administrative eligibility for a VA authorization at a community detention. Referral Source/Location: Three [facility] Care [facility] ([facility] Home: Contract [place]: Yes Contact: Melany Phone Number: Reviewed the following eligibility [facility] or [facility] Authorization: No If yes: If administratively eligible, meets Medicare guidelines for skilled rehab and able/willing to participate: No has a clinical need for detention care: Yes Hospice authorization: Yes would be eligible if enrolled in hospice service Referral source contact encouraged to do the following: Contact advertising copywriter for further questions as needed. /el/ JEM GARCIA GAUGE MAKER APPRENTICE JEM Signed: 11/20/2023 13:23 ALISON WHITLOCK [facility]
--- OUTSIDE RECORDS SUMMARY | 2024-10-27 14:36 | XMS_ITS | Encounter Summary ---
Author Name [facility] [place] [facility] [place] Address [address] [place] [address] Care Team Providers Care Car Manager Name Role Phone SHANTAL HANSON Primary [...] PART B Jul 12, 2004 PART B [id number] [phone] VOSUDHAKAR,F RED PATIENT MEDICARE (WNR) MEDICARE (M) PART A Oct 11, 2002 PART A [id number] [id number] [phone] Kasie DEGROOT RED PATIENT Selected Encounter This section includes the information on record at [place] for the Encounter. Date/Time Encounter Type Encounter Description Reason Pro vider Source Sep 23, 2024 09:02 AM Outpatient Encounter WHEELCHAIR & ADVAN MOBILITY IHE Encounter Template Text not used by [place] Advance Directives: All historical and current Section Date Range: From patient's date of to the date document was created. This section includes ALL of a patient's completed or amended [place] Advance and Rescinded Directives. The entries below indicate that a directive exists for the patient, but an actual copy is not included with this document. The data comes from all [place] facilities. Date Advance Directives Provider Source Feb 05, 2023 ADVANCE DIRECTIVE DISCUSSION GUSTAVO ABAD [facility] Encounter Notes: All associated encounter [...] Jagdish Name/Relationship of Contact if other than : - Sheron Date & Time of Contact: Sep@09:02 Type of Contact: Other Voicemail Reason for Contact: The 's called into the Advance mobility seating and positioning wheelchair clinic's voicemail looking for as point of contact to have some maintenance checks completed on the [place] installed ceiling lift. The 's is looking for a return call. /el/ EUSEBIO WHITLOCK OTR/L Signed: 09/23/2024 09:04 Receipt Acknowledged By: 09/24/2024 08:12 /el/ SUSANA HALEY OCCUPATIONAL THERAPIST EUSEBIO WHITLOCK [facility]
--- OUTSIDE RECORDS SUMMARY | 2024-10-27 14:36 | XMS_ITS | Encounter Summary ---
Author Name [facility] [facility] [place] Address [address] [place] [address] Care Team Providers Care Breaker Unit Assembler Name Role Phone SHANTAL HANSON Primary Care [...] PART B Jul 12, 2004 PART B [id number] PP47 [phone] MIKAYLA,F RED PATIENT MEDICARE (WNR) MEDICARE (M) PART A Oct 11, 2002 PART A [id number] PP47 [phone] Kasie DEGROOT RED PATIENT Selected Encounter This [...] 05, 2023 ADVANCE DIRECTIVE DISCUSSION GUSTAVO ABAD [facility] Encounter Notes: All associated [...] ]. Left message requesting a call back. Tack Driller will attempt to call again. /el/ Jose Anders RN Community Medical Education Manager Signed: 07/23/2024 08:50 [facility]
--- OUTSIDE RECORDS SUMMARY | 2024-10-27 14:36 | XMS_ITS | Encounter Summary ---
Author Name [facility] Organization [facility] [place] Address [address] [place] [address] Care Team Providers Care Senior Sas Programmer Name Role Phone SHANTAL HANSON Primary Care [...] PART B Jul 12, 2004 PART B [id number] PP47 [phone] MIKAYLAF RED PATIENT MEDICARE (WNR) MEDICARE (M) PART A Oct 11, 2002 PART A [id number] PP47 [phone] Kasie DEGROOT RED PATIENT Selected Encounter This section includes the information on record at [place] for the Encounter. Date/Time Encounter Type Encounter Description Reason Pro vider Source May 12, 2024 02:14 PM Outpatient Encounter PROS AND SENS AIDS IHE Encounter Template Text not used by [place] Plan of Treatment: Future Appointments (+ 6 months) and Future Tests (+/- 45 days) The Plan of Treatment section includes future care activities for the patient from all [place] treatmentfacilities. This section includes future appointments and [...] 20, 2024 07:00 AM AMBULATORY - NONE [facility] Advance Directives: All historical and current Section [...] 05, 2023 ADVANCE DIRECTIVE DISCUSSION GUSTAVO ABAD [facility] Encounter Notes: All associated encounter [...] Ot to nikita. /el/ SOLANGE BENOIT EQUIPMENT METAL CABINET FINISHER Signed: 05/12/2024 14:20 Receipt Acknowledged By: 05/12/2024 14:31 /el/ LATISHA BUTT, PT, DPT, NCS, ATP PHYSICAL THERAPIST SOLANGE BENOIT [facility]
--- OUTSIDE RECORDS SUMMARY | 2024-10-27 14:36 | XMS_ITS | Encounter Summary ---
Author Name [facility] Organization [facility] Address [address] [place] [id number] Care Team Providers Care Admissions Specialist Name Role Phone SHANTAL HANSON Primary Care [...] PART B Jul 12, 2004 PART B [id number] [phone] MIKAYLA,F RED PATIENT MEDICARE (WNR) MEDICARE (M) PART A Oct 11, 2002 PART A [id number] [phone] Kasie DEGROOT RED PATIENT Selected Encounter This section includes the information on record at [place] for the Encounter. Date/Time Encounter Type Encounter Description Reason Pro vider Source Oct 28, 2023 08:37 AM Outpatient Encounter COMMUNITY CARE CONSULT IHE Encounter Template Text not used by [facility] Advance Directives: All historical and current Section Date Range: From patient's date of to the date document was created. This section includes ALL of a patient's completed or amended [place] Advance and Rescinded Directives. The entries below indicate that a directive exists for the patient, but an actual copy is not included with this document. The data comes from all [place] facilities. Date Advance Directives Provider Source Feb [...] COSIGNER: URGENCY: STATUS: COMPLETED Received this at [facility], forwarding to [facility] nurse as he sees them. Prescription scanned into this note. /el/ DENNIS RETANA LPN Co-Cab Driver Signed: 10/28/2023 14:48 Receipt Acknowledged By: 12/24/2023 07:40 /el/ SPENSER YOON [place] WAITRESS/WAITER --- Original Document --- 10/28/23 PHARMACY NON [place] CARE MEDICATIONS: [facility] Outpatient Pharmacy RECEIVED electronic prescription(s) (eRX(s)) from NON-VA Provider:SHANEKA HAHN Date eRX received: Oct [place] not eligible to receive non-VA prescription(s) at this time. Prescription(s) REDIRECTED via FAX to: [X][facility] [ ]Other: [ ] [facility] ([facility]) [ ] [facility] [ ] [facility] [ ] [facility] Reference #:[id number] eRx Prescription Information: eRx Drug: Transparent Mepitel Film eRx Qty: 20 eRx Refills: 2 eRx Days Supply: eRx Sig: As directed, following wound care orders /silvano CASH PHARMACIST Signed: 10/28/2023 08:38 DENNIS RETANA [facility] Oct 28, 2023 08:37 AM PHARMACY NOTE: LOCAL TITLE: PHARMACY NON [facility] CARE MEDICATIONS STANDARD TITLE: PHARMACY NOTE DATE OF NOTE: OCT 28, 2023@08:37 ENTRY DATE: OCT 28, 2023@08:37:30 AUTHOR: CASA CASH EXP COSIGNER: URGENCY: STATUS: COMPLETED PHARMACY NON [facility] CARE MEDICATIONS Has ADDENDA [facility] Outpatient Pharmacy RECEIVED electronic prescription(s) (eRX(s)) from NON-VA Provider:SHANEKA HAHN Date eRX received: Oct not eligible to receive non-VA prescription(s) at this time. Prescription(s) REDIRECTED via FAX to: [X][facility] [ ]Other: [ ] [facility] (to) [ ] [facility] [ ] [facility] [ ] [facility] Reference #:[id number] eRx Prescription Information: eRx Drug: Transparent Mepitel Film eRx Qty: 20 eRx Refills: 2 eRx Days Supply: eRx Sig: As directed, following wound care orders /el/ CASA CASH PHARMACIST Signed: 10/28/2023 08:38 10/28/2023 ADDENDUM STATUS: COMPLETED Received this at [facility], forwarding to [facility] nurse as he sees them. Prescription scanned into this note. /el/ DENNIS RETANA LPN Co-Cab Driver Signed: 10/28/2023 14:48 Receipt Acknowledged By: * AWAITING SIGNATURE * SPENSER YOON ANDREA L [facility]
--- OUTSIDE RECORDS SUMMARY | 2024-10-27 14:36 | XMS_ITS | Continuity of Care Document ---
Author Name [facility] Organization [facility] Care Team Providers Care Care Navigator Name Role Phone [facility] Unavailable Unavailable Problems Combined list of problems from 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 It does not include entries that were removed or entered in error. Problem Status Onset Date Problem Type Date of Resolution Comments Source Abnormal liver function Active Condition [facility] Anemia ([facility] 721067111) Active Condition [facility] Anxiety ([facility] 27232530) Active Condition [facility] Autonomic dysreflexia Active Condition [facility] Chronic Pain Syndrome ([facility] 881533975) Active Condition [facility] Colostomy present Active Condition [facility] Constipation ([facility] 08531934) Active Condition [facility] Continuous opioid dependence Active Condition [facility] COPD - Chronic Obstructive Pulmonary Disease ([facility] 77819275) Active Condition [facility] Dementia Active Condition [facility] Depression ([facility] 66453756) Active Condition [facility] Diabetes Mellitus Type 2 (S[facility] 52641810) Active Condition [facility] Ependymoma of spinal cord Active Condition [facility] Hearing Loss ([facility] 07611414) Active Condition [facility] History of Deep Vein Thrombosis ([facility] 104167811) Active Condition [facility] History of pressure injury Active Condition [facility] HTN - Hypertension ([facility] 88649037) Active Condition [facility] Hyperlipidemia ([facility] 67853933) Active Condition [facility] Hyponatremia Active Condition [facility] Long-term current use of anticoagulant Active Condition [facility] Neurogenic Bladder ([facility] 830287354) Active Condition [facility] Neurogenic bowel Active Condition [facility] Osteoporosis ([facility] 90775038) Active Condition [facility] Paraplegia Active Condition [facility] Spasticity Active Condition [facility] Suprapubic urinary catheter in situ Active Condition [facility] Supraventricular tachycardia Active Condition [facility] Tinnitus ([facility] 77535197) Active Condition [facility] Vitamin D Deficiency ([facility] 3878165) Active Condition [facility] Diagnosis: ICD-10-CM Z73.6 Limitation of activities due to disability Active Diagnosis [facility] Diagnosis: ICD-10-CM G82.20 Paraplegia, unspecified Active Diagnosis [facility] Medications Combined list of outpatient medications from [...] BESYLATE (AMLODIPINE BESYLATE), 5 MG, TABLET, ORAL, [employer] 1000 ea. BOTTLE Active [id number] 4 2023 90 Pharmac y Data Transac tion Service Facilit y AMLODIPINE BESYLATE (amlodipine besylate), 5 MG, TABLET, ORAL, [employer], 1000 ea. BOTTLE Active [id number] 4 2023 90 Pharmac y Data Transac tion Service Facilit y AMLODIPINE BESYLATE 2.5MG TAB TAKE TWO TABLETS BY MOUTH EVERY MORNING ORAL ACTIVE Jagdish BARRETT 2022 [facility] AMOX TR-POTASSIU M CLAVULANATE (AMOXICILLI N/POTASSIUM CLAV), 875-125 MG, TABLET, ORAL, Buddy, 20 ea. BOTTLE Active [id number] 3 2022 14 Pharmac y Data Transac tion Service Facilit y AMOXICILLIN -CLAVULANAT E POTASS (amoxicilli n/potassium clavulanate ), 875-125 MG, TABLET, ORAL, [employer],, 20 ea. BOTTLE Active [id number] 2023 20 Pharmac y Data Transac tion Service Facilit y AMOXICILLIN -CLAVULANAT E POTASS (amoxicilli n/potassium clavulanate ), 875-125 MG, TABLET, ORAL, [employer] [facility],, 20 ea. BOTTLE Active [id number] 2023 56 Pharmac y Data Transac tion Service Facilit y ARIPIPRAZOL E (aripiprazo le), 2 MG, TABLET, ORAL, XLCARE PHARMACE, 500 ea. BOTTLE Active [id number] 2023 180 Pharmac y Data Transac tion Service Facilit y ARIPIPRAZOL E (aripiprazo le), 2 MG, TABLET, ORAL, [employer]ACE, 500 ea. BOTTLE Active [id number] 2023 180 Pharmac y Data Transac tion Service Facilit y ARIPIPRAZOL E TAB TAKE 2MG BY MOUTH TWICE A DAY ORAL ACTIVE Jey HANSON TAZEvelyn Clemente 2021 [facility] ATIVAN (LORAZEPAM) , 0.5 MG, TABLET, ORAL, VALEANT, 100 ea. BOTTLE Active [id number] 2023 120 Pharmac y Data Transac tion Service Facilit y ATORVASTATI N CA 80MG TAB TAKE ONE-HALF TABLET BY MOUTH EVERY DAY ORAL ACTIVE Jey HANSON Bryn 2021 [facility] ATORVASTATI N CALCIUM (atorvastat in calcium), 40 MG, TABLET, ORAL, BIOCON PHARMA I, 1000 ea. BOTTLE Active [id number] 2023 90 Pharmac y Data Transac tion Service Facilit y ATORVASTATI N CALCIUM (atorvastat in calcium), 40 MG, TABLET, ORAL, BIOCON PHARMA I, 1000 ea. BOTTLE Active [id number] 2023 90 Pharmac y Data Transac [...] ORAL, PAVEL PHARMACEU, 60 ea. BOTTLE Active [id number] 2023 180 Pharmac y Data Transac tion Service Facilit y BUPROPION HCL SR (bupropion HCl), 150 MG, TAB SR 12H, ORAL, PAVEL PHARMACEU, 60 ea. BOTTLE Active [id number] 2023 180 Pharmac y Data Transac [...] ORAL, AUROBINDO PHARM, 50 ea. BOTTLE Active [id number] 2023 70 Pharmac y Data Transac tion Service Facilit y DONEPEZIL HCL (DONEPEZIL HCL), 5 MG, TABLET, ORAL, [employer] 1000 ea. BOTTLE Active [id number] 2023 90 Pharmac y Data Transac tion Service Facilit y DONEPEZIL HCL (DONEPEZIL HCL), 5 MG, TABLET, ORAL, [employer] 1000 ea. BOTTLE Cancele d [id number] : 2023 0 Pharmac y Data Transac tion Service Facilit y DONEPEZIL HCL (DONEPEZIL HCL), 5 MG, TABLET, ORAL, [employer] 1000 ea. BOTTLE Active [id number] 2023 90 Pharmac y Data Transac tion Service Facilit y DONEPEZIL HCL 10MG TAB TAKE ONE-HALF TABLET BY MOUTH EVERY DAY ORAL ACTIVE Jey HANSON Bryn 2021 [facility] DULOXETINE HCL (duloxetine HCl), 60 MG, CAPSULE DR, ORAL, [employer] 1000 ea. BOTTLE Active [id number] 2023 180 Pharmac y Data Transac tion Service Facilit y DULOXETINE HCL (duloxetine HCl), 60 MG, CAPSULE DR, ORAL, [employer] 1000 ea. BOTTLE Active [id number] 2023 180 Pharmac y Data Transac tion Service Facilit y DULOXETINE HCL 30MG CAP,EC TAKE 2 CAPSULES BY MOUTH TWICE A DAY ORAL ACTIVE GRANDJey PRADHAN M 2021 [facility] FAMOTIDINE (famotidine ), 20 MG, TABLET, ORAL, [employer] 1000 ea. BOTTLE Active [id number] 2023 180 Pharmac y Data Transac tion Service Facilit y FAMOTIDINE 20MG TAB TAKE ONE TABLET BY MOUTH TWICE A DAY ORAL ACTIVE GRANDIA,C ONALAINAE M 2021 [facility] FUROSEMIDE (furosemide ), 40 MG, TABLET, ORAL, [employer], 1000 ea. BOTTLE Active [id number] 2023 180 Pharmac y Data Transac tion Service Facilit y FUROSEMIDE 40MG TAB TAKE ONE TABLET BY MOUTH TWICE A DAY ORAL ACTIVE MARGIE,C SB M 2021 [facility] GABAPENTIN (gabapentin ), 400 MG, CAPSULE, ORAL, [employer] 500 ea. BOTTLE Active [id number] 2023 270 Pharmac y Data Transac tion Service Facilit y GABAPENTIN (gabapentin ), 400 MG, CAPSULE, ORAL, [employer]EGEN PHARMAC, 500 ea. BOTTLE Active [id number] 2023 270 Pharmac y Data Transac tion Service Facilit y GABAPENTIN (gabapentin ), 400 MG, CAPSULE, ORAL, X[employer] PHARMACE, 500 ea. BOTTLE Cancele d [id number] : 2023 0 Pharmac y Data Transac tion Service Facilit y GABAPENTIN 400MG CAP TAKE 1 CAPSULE BY MOUTH THREE TIMES A DAY ORAL ACTIVE GRANDIAJeyE M 2021 [facility] LORAZEPAM (lorazepam) , 0.5 MG, TABLET, ORAL, AUROBINDO PHARM, 500 ea. BOTTLE Active [id number] 2023 120 Pharmac y Data Transac tion Service Facilit y LORAZEPAM (lorazepam) , 0.5 MG, TABLET, ORAL, LEADING PHARMA, 1000 ea. BOTTLE Active [id number] 2023 120 Pharmac y Data Transac tion Service Facilit y LORAZEPAM (lorazepam) , 0.5 MG, TABLET, ORAL, LEADING PHARMA, 1000 ea. BOTTLE Active [id number] 2023 120 Pharmac y Data Transac tion Service Facilit y LORAZEPAM (lorazepam) , 0.5 MG, TABLET, ORAL, LEADING PHARMA, 1000 ea. BOTTLE Active [id number] 2023 120 Pharmac y Data Transac tion Service Facilit y LORAZEPAM (lorazepam) , 0.5 MG, TABLET, ORAL, LEADING PHARMA, 500 ea. BOTTLE Active [id number] 2023 120 Pharmac y Data Transac [...] HCL (OXYCODONE HCL), 10 MG, TABLET, ORAL, [employer] 100 ea. BOTTLE Active [id number] 2023 120 Pharmac y Data Transac tion Service Facilit y OXYCODONE HCL (OXYCODONE HCL), 10 MG, TABLET, ORAL, [employer] 100 ea. BOTTLE Active [id number] 2023 120 Pharmac y Data Transac tion Service Facilit y OXYCODONE HCL (OXYCODONE HCL), 10 MG, TABLET, ORAL, [employer] 100 ea. BOTTLE Active [id number] 2023 120 Pharmac y Data Transac tion Service Facilit y OXYCODONE HCL (OXYCODONE HCL), 10 MG, TABLET, ORAL, [employer] 100 ea. BOTTLE Active [id number] 2023 120 Pharmac y Data Transac tion Service Facilit y OXYCODONE HCL (OXYCODONE HCL), 10 MG, TABLET, ORAL, [employer] 100 ea. BOTTLE Active [id number] 2023 120 Pharmac y Data Transac tion Service Facilit y OXYCODONE HCL (OXYCODONE HCL), 10 MG, TABLET, ORAL, [employer] 100 ea. BOTTLE Active [id number] 2023 120 Pharmac y Data Transac tion Service Facilit y OXYCODONE HCL (OXYCODONE HCL), 10 MG, TABLET, ORAL, [employer] 100 ea. BOTTLE Active [id number] 2022 120 Pharmac y Data Transac tion Service Facilit y OXYCODONE HCL 5MG TAB TAKE TWO TABLETS BY MOUTH FOUR TIMES A DAY ORAL ACTIVE Jagdish BARRETT 2022 [facility] POTASSIUM CHLORIDE (potassium chloride), 10 MEQ, TAB ER PRT, ORAL, [employer] PHARMACE, 100 ea. BOTTLE Active [id number] 2023 180 Pharmac y Data Transac tion Service Facilit y POTASSIUM CHLORIDE (potassium chloride), 10 MEQ, TAB ER PRT, ORAL, [employer] PHARMACE, 100 ea. BOTTLE Active [id number] 2023 180 Pharmac y Data Transac tion Service Facilit y POTASSIUM CHLORIDE (potassium chloride), 20 MEQ, TAB ER PRT, ORAL, [employer] PHARMACE, 100 ea. BOTTLE Active [id number] 3 2023 90 Pharmac y Data Transac tion Service Facilit y POTASSIUM CHLORIDE 20MEQ TAB,SA (DISPERSIBL E) TAKE ONE TABLET BY MOUTH TWICE A DAY ORAL ACTIVE Jey HANSON 2021 [facility] SANTYL (collagenas e Clostridium histolyticu m), 250 UNIT/G, OINT. (G), TOPICAL, WHITLOCK&N/UNI LUIS, 30 g TUBE Cancele d [id number] : 2023 0 Pharmac y Data Transac tion Service Facilit y WARFARIN SODIUM (warfarin sodium), 5 MG, TABLET, ORAL, [employer] 1000 ea. BOTTLE Cancele d [id number] : 2022 0 Pharmac y Data Transac tion Service Facilit y WARFARIN SODIUM (WARFARIN SODIUM), 5 MG, TABLET, ORAL, [employer], 1000 ea. BOTTLE Active [id number] 2023 25 Pharmac y Data Transac tion Service Facilit y WARFARIN SODIUM (WARFARIN SODIUM), 5 MG, TABLET, ORAL, [employer] [place], 1000 ea. BOTTLE Active [id number] 2023 12 Pharmac y Data Transac tion Service Facilit y WARFARIN SODIUM (WARFARIN SODIUM), 5 MG, TABLET, ORAL, [employer] [place], 1000 ea. BOTTLE Active [id number] 2023 40 Pharmac y Data Transac tion Service Facilit y WARFARIN SODIUM (WARFARIN SODIUM), 5 MG, TABLET, ORAL, [employer] [place], 1000 ea. BOTTLE Cancele d [id number] : 2022 0 Pharmac y Data Transac tion Service Facilit y WARFARIN SODIUM (warfarin sodium), 7.5 MG, TABLET, ORAL, [employer] [place], 100 ea. BOTTLE Active [id number] 2023 51 Pharmac y Data Transac tion Service Facilit y WARFARIN SODIUM (warfarin sodium), 7.5 MG, TABLET, ORAL, [employer] [place], 100 ea. BOTTLE Active [id number] 2023 78 Pharmac y Data Transac tion Service Facilit y WARFARIN TAB TAKE 5MG BY MOUTH SUN/THUR S AND TAKE 7.5MG BY MOUTH ALL OTHER DAYS ORAL ACTIVE Jagdish BARRETT 2022 [facility] Allergies, Adverse Reactions, Alerts Combined list of allergies from Department [facility] and [facility] facilities. It does not include entries that were removed or entered in error. Substance Category Reaction Severity Reaction type Status Date Reported Comments Source AMOXICILLIN Propensity to adverse reactions to drug (finding) [facility] METOLAZONE Propensity to adverse reactions to drug (finding) Itching active 2 [facility] MORPHINE Propensity to adverse reactions to drug (finding) Delirium active 2 [facility] PIPERACILLIN Propensity to adverse reactions to drug (finding) Eruption active 2 [facility] SULFA DRUGS Propensity to adverse reactions to drug (finding) Eruption active 2 [facility] IS [facility] TAZOBACTAM SODIUM Propensity to adverse reactions to drug (finding) Eruption active 2 [facility] Immunizations Combined list of available immunizations from the Department of [facility] and [facility] facilities. Immunization Series Date Given Administered By Site Reaction Lot Number CVX Code Drug Skiver Machine Status Comments Source COVID-19 (Biscoot), MRNA, LNP-S, BIVALENT, PF, 30 MCG/0.3 ML DOSE 2021 300 complet ed [facility] INFLUENZA, ADJUVANTED, QUADRIVALENT, PF 2021 205 complet ed [facility] INFLUENZA, UNSPECIFIED FORMULATION 2021 88 complet ed [facility] TD (ADULT), 5 LF TETANUS TOXOID, PRESERVATIVE FREE, ADSORBED 2021 113 complet ed [facility] INFLUENZA, ADJUVANTED, QUADRIVALENT, PF 2020 205 complet ed [facility] INFLUENZA, UNSPECIFIED FORMULATION 2020 88 complet ed [facility] COVID-19 (Biscoot), MRNA, LNP-S, PF, 30 MCG/0.3 ML DOSE 3 2020 208 complet ed [facility] COVID-19 (PFIZER), MRNA, LNP-S, PF, 30 MCG/0.3 ML DOSE 2 2020 208 complet ed [facility] COVID-19 (Biscoot), MRNA, LNP-S, PF, 30 MCG/0.3 ML DOSE [...] CONJUGATE PCV 13 2014 133 complet ed [facility] INFLUENZA, HIGH-DOSE, TRIVALENT, PF 2014 135 complet ed [facility] INFLUENZA, HIGH-DOSE, TRIVALENT, PF 2013 135 complet ed [facility] INFLUENZA, UNSPECIFIED FORMULATION 2013 88 complet ed [facility] INFLUENZA, SPLIT VIRUS, TRIVALENT, PRESERVATIVE 2012 141 complet ed [facility] ZOSTER LIVE 2012 121 complet ed [facility] INFLUENZA, SPLIT VIRUS, TRIVALENT, PRESERVATIVE 2011 141 complet ed [facility] INFLUENZA, SPLIT VIRUS, TRIVALENT, PF 2010 140 complet ed [facility] PNEUMOCOCCAL POLYSACCHARID E PPV23 2010 33 complet ed [facility] TDAP 2010 115 complet ed [facility] INFLUENZA, SPLIT VIRUS, TRIVALENT, PRESERVATIVE 2009 [...] 2023 03:10 PM Reporting Lab: [facility] [address] Performing Lab: [facility] [address] [facility] CYSTATIN C WITH EGFR CYSTATIN C AND GLOMERULAR FILTRATION RATE BY CYSTATIN C-BASED FORMULA PANEL - SERUM OR PLASMA 53 60 02/13 L Specimen Type: PLASMA No comment entered. Ordering Provider: ANKUSH BOWMAN Report Released Date/Time: Feb 05, 2023 03:10 PM Reporting Lab: [facility] [address] Performing Lab: [facility] [address] [facility] BASIC METABOLIC PANEL+MG CREATININE [MASS/VOLUM E] IN SERUM OR PLASMA 0.7 mg/dL 0.7 - 1.2 02/13 Specimen Type: PLASMA No comment entered. Ordering Provider: ANKUSH BOWMAN Report Released Date/Time: Feb 05, 2023 03:10 PM Reporting Lab: [facility] [address] Performing Lab: [facility] [address] [place] [facility] BASIC METABOLIC PANEL+MG UREA NITROGEN [MASS/VOLUM E] IN SERUM OR PLASMA 15 mg/dL 8 - 26 02/13 Specimen Type: PLASMA No comment entered. Ordering Provider: ANKUSH BOWMAN Report Released Date/Time: Feb 05, 2023 03:10 PM Reporting Lab: [facility] [address] Performing Lab: [facility] [address] [place] [facility] BASIC METABOLIC PANEL+MG GLUCOSE [MASS/VOLUM E] IN SERUM OR PLASMA 140 mg/dL 70 - 100 02/13 H Specimen Type: PLASMA No comment entered. Ordering Provider: ANKUSH BOWMAN Report Released Date/Time: Feb 05, 2023 03:10 PM Reporting Lab: [facility] [address] Performing Lab: [facility] [address] [place] [facility] BASIC METABOLIC PANEL+MG SODIUM [MOLES/VOLU ME] IN SERUM OR PLASMA 135 mmol/L 136 - 145 02/13 L Specimen Type: PLASMA No comment entered. Ordering Provider: ANKUSH BOWMAN Report Released Date/Time: Feb 05, 2023 03:10 PM Reporting Lab: [facility] [address] Performing Lab: [facility] [address] [place] [facility] BASIC METABOLIC PANEL+MG POTASSIUM [MOLES/VOLU ME] IN SERUM OR PLASMA 4.0 mmol/L 3.5 - 5.1 02/13 Specimen Type: PLASMA No comment entered. Ordering Provider: ANKUSH BOWMAN Report Released Date/Time: Feb 05, 2023 03:10 PM Reporting Lab: [facility] [address] Performing Lab: [facility] [address] [place] [facility] BASIC METABOLIC PANEL+MG CHLORIDE [MOLES/VOLU ME] IN SERUM OR PLASMA 99 mmol/L 98 - 107 02/13 Specimen Type: PLASMA No comment entered. Ordering Provider: ANKUSH BOWMAN Report Released Date/Time: Feb 05, 2023 03:10 PM Reporting Lab: [facility] [address] Performing Lab: [facility] [address] [place] [facility] BASIC METABOLIC PANEL+MG CARBON DIOXIDE, TOTAL [MOLES/VOLU ME] IN SERUM OR PLASMA 29 mmol/L 22 - 29 02/13 Specimen Type: PLASMA No comment entered. Ordering Provider: ANKUSH BOWMAN Report Released Date/Time: Feb 05, 2023 03:10 PM Reporting Lab: [facility] [address] Performing Lab: [facility] [address] [place] [facility] BASIC METABOLIC PANEL+MG CALCIUM [MASS/VOLUM E] IN SERUM OR PLASMA 9.2 mg/dL 8.4 - 10.2 02/13 Specimen Type: PLASMA No comment entered. Ordering Provider: ANKUSH BOWMAN Report Released Date/Time: Feb 05, 2023 03:10 PM Reporting Lab: [facility] [address] Performing Lab: [place] [address] [place] [facility] BASIC METABOLIC PANEL+MG MAGNESIUM [MASS/VOLUM E] IN SERUM OR PLASMA 2.0 mg/dL 1.6 - 2.6 02/13 Specimen Type: PLASMA No comment entered. Ordering Provider: ANKUSH BOWMAN Report Released Date/Time: Feb 05, 2023 03:10 PM Reporting Lab: [facility] [address] Performing Lab: [facility] [address] [place] [facility] BASIC METABOLIC PANEL+MG ANION GAP IN SERUM OR PLASMA 7 mmol/L 5 - 15 02/13 Specimen Type: PLASMA No comment entered. Ordering Provider: ANKUSH BOWMAN Report Released Date/Time: Feb 05, 2023 03:10 PM Reporting Lab: [facility] [address] Performing Lab: [facility] [address] [place] [facility] BASIC METABOLIC PANEL+MG GLOMERULAR FILTRATION RATE/1.73 SQ M.PREDICTED [VOLUME RATE/AREA] IN SERUM, PLASMA OR BLOOD BY CREATININE- BASED FORMULA (CKD-EPI) >90 60 02/13 Specimen Type: PLASMA No comment entered. Ordering Provider: ANKUSH BOWMAN Report Released Date/Time: Feb 05, 2023 03:10 PM Reporting Lab: [facility] [address] Performing Lab: [facility] [address] [place] [facility] Encounters Combined list of: 1) Encounters from Department of Veterans Affairs facilities going back up to thelast 18 months. 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 Location Location Details Encounter Type Encounter Number Reason For Visit Attending Provider ADM Date DC Date Status Disposition Source [place] [facility] Outpatient Encounter [id number] 05/24 [facility] [place] [facility] OFF/OP EST MARCH X REQ PHY/QHP [id number] Diagnos is: ICD-10- CM G82.20 Paraple mary kay, unspeci fied
VIOLA YOON NDJagdish 05/28 [facility] [place] [facility] WHEELCHAIR MNGMENT TRAINING [id number] Diagnos is: ICD-10- CM Z73.6 Limitat ion of activit ies due to disabil ity<br/ > ANGELI BUTT AN P 06/10 [facility] [place] [facility] Outpatient Encounter [id number] 10/28 [facility] [place] [facility] Outpatient Encounter [id number] 11/20 [facility] [place] [facility] Outpatient Encounter [id number] [facility] [place] [facility] Outpatient [facility]counter [id number] 07/23 [facility] [place] [facility] Outpatient Encounter [id number] DEE ANDERS 07/28 [facility] [place] [facility] Outpatient Encounter [id number] 09/23 [facility] Social History Combined list of available smoking, tobacco, and other social history from 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 Social History Type Response Date Comment Sourc e Tobacco smoking status [facility] NEVER USED 05/28/20 [facility] This section is an empty social history section. [facility] Advance Directives List of completed, amended, or rescinded Advance Directives on record at Department of 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 An actual copy of the Directive is not included. Date Advance Directive Provider Source 02/05/2023 ADVANCE DIRECTIVE DISCUSSION GUSTAVO ABAD [facility]
--- OUTSIDE RECORDS SUMMARY | 2024-10-27 14:36 | XMS_ITS | Encounter Summary ---
Author Name [facility] Organization [facility] Address [address] [place] [id number] Care Team Providers Care Cardiothoracic Anesthesia Technician Name Role Phone SHANTAL HANSON Primary Care [...] PART B Jul 12, 2004 PART B [id number] [phone] MIKAYLA,F RED PATIENT MEDICARE (WNR) MEDICARE (M) PART A Oct 11, 2002 PART A [id number] [phone] Kasie CULLEN RED PATIENT Selected Encounter This section includes the information on record at [place] for the Encounter. Date/Time Encounter Type Encounter Description Reason Provider Source Jul 28, 2024 09:08 AM Outpatient Encounter COMMUNITY CARE CONSULT PAULINA ANDERS Encounter Template Text not used by [...] 05, 2023 ADVANCE DIRECTIVE DISCUSSION GUSTAVO ABAD [facility] Encounter Notes: All associated encounter notes This section contains the clinical notes associated to the Encounter. Date/Time Encounter Note(s) Provider Source Jul 28, 2024 09:08 AM GERIATRIC MEDICINE NOTE: LOCAL TITLE: PERSONAL CARE SERVICES CASE MIX TOOL STANDARD TITLE: GERIATRIC MEDICINE NOTE DATE OF NOTE: JUL 28, 2024@09:08:40 ENTRY DATE: JUL 28, 2024@09:08:40 AUTHOR: PAULINA ANDERS EXP COSIGNER: URGENCY: STATUS: COMPLETED PERSONAL CARE SERVICES CASE MIX TOOL Has ADDENDA HCBS Case Mix & Budget Tool (CASE MIX) Date Given: 07/23/2024 Clinician: Paulina Anders Location: [facility] Completed with over the phone [...] Understood. Q10. TOILETING *7 Are enrolled in [place] Bowel [facility] Bladder Program. Q11. MDS HC 2.0/CPS Cognitive Skill for Daily Decision Making 1 Modified [place] - some difficulty in new situations only. [...] Person, 2. Informant, 3. Medical Record /el/ Paulina Anders RN Community Motion Study Technician Signed: 07/28/2024 09:14 07/28/2024 ADDENDUM STATUS: COMPLETED /caregiver educated on Personal Care Services (PCS) available: Yes PCS requested by /caregiver: Home Health Aide (OINTMENT MILL TENDER) Are first range hours adequate for this ?: [X] Yes. [] No. Second range hours request submitted to [facility] per policy Distribution of hours (can copy/paste from [facility] referral/s): Home Health Aide approved: (hours and frequency): [9] hours/week Vendor has been educated on requested services and hours allotted. /el/ Paulina Anders RN Community Motion Study Technician Signed: 07/28/2024 09:14 PAULINA ANDERS [facility]
== END 2024-11-02 12:44 | disposition home or self-care (01) ==
LOC: WOUND 12:43
PROVIDERS: PCP Family Medicine; Visit Provider Family Medicine
DX: M86.68 Other chronic osteomyelitis, other site (principal); L89.324 Pressure ulcer of left buttock, stage 4; G82.50 Quadriplegia, unspecified; Z99.3 Dependence on wheelchair
CPT/HCPCS: 11042

== ENCOUNTER 2024-11-16 12:41 | Outpatient (CLI) | payer MEDICARE, OTHER, SELFPAY | END 2024-11-16 12:42 | disposition home or self-care (01) | LOC: WOUND 12:46 | PROVIDERS: PCP Family Medicine; Visit Provider Nurse Practitioner Family | DX: L89.324 Pressure ulcer of left buttock, stage 4 (principal); G82.50 Quadriplegia, unspecified; Z99.3 Dependence on wheelchair | CPT/HCPCS: 11042 ==

== ENCOUNTER 2024-11-23 12:44 | Outpatient (CLI) | payer MEDICARE, OTHER, SELFPAY | END 2024-11-23 12:45 | disposition home or self-care (01) | LOC: WOUND 12:44 | PROVIDERS: PCP Family Medicine; Visit Provider Nurse Practitioner Family | DX: L89.324 Pressure ulcer of left buttock, stage 4 (principal); G82.50 Quadriplegia, unspecified; Z99.3 Dependence on wheelchair | CPT/HCPCS: 11042 ==

== ENCOUNTER 2024-11-30 12:43 | Outpatient (CLI) | payer MEDICARE, OTHER, SELFPAY | END 2024-11-30 12:44 | disposition home or self-care (01) | LOC: WOUND 12:43 | PROVIDERS: PCP Family Medicine; Visit Provider Nurse Practitioner Family | DX: M86.68 Other chronic osteomyelitis, other site (principal); L89.324 Pressure ulcer of left buttock, stage 4; G82.50 Quadriplegia, unspecified; Z99.3 Dependence on wheelchair | CPT/HCPCS: 15271; Q4201 ==

== ENCOUNTER 2024-12-07 12:35 | Outpatient (CLI) | payer MEDICARE, OTHER, SELFPAY | END 2024-12-07 12:36 | disposition home or self-care (01) | LOC: WOUND 12:35 | PROVIDERS: PCP Family Medicine; Visit Provider Nurse Practitioner Family | DX: M86.68 Other chronic osteomyelitis, other site (principal); E11.622 Type 2 diabetes mellitus with other skin ulcer; L89.324 Pressure ulcer of left buttock, stage 4; G82.50 Quadriplegia, unspecified; Z99.3 Dependence on wheelchair | CPT/HCPCS: 11042 ==

== ENCOUNTER 2024-12-14 12:37 | Outpatient (CLI) | payer MEDICARE, OTHER, SELFPAY | END 2024-12-14 12:38 | disposition home or self-care (01) | PROVIDERS: PCP Family Medicine; Visit Provider Nurse Practitioner Family | DX: L89.324 Pressure ulcer of left buttock, stage 4 (principal); G82.50 Quadriplegia, unspecified; Z99.3 Dependence on wheelchair | CPT/HCPCS: 97597 ==

== ENCOUNTER 2024-12-21 12:22 | Outpatient (CLI) | payer MEDICARE, OTHER, SELFPAY | END 2024-12-21 12:23 | disposition home or self-care (01) | PROVIDERS: PCP Family Medicine; Visit Provider Nurse Practitioner Family | DX: L89.324 Pressure ulcer of left buttock, stage 4 (principal); G82.50 Quadriplegia, unspecified; Z99.3 Dependence on wheelchair | CPT/HCPCS: 97597 ==

== ENCOUNTER 2024-12-28 12:42 | Outpatient (CLI) | payer MEDICARE, OTHER, SELFPAY | END 2024-12-28 12:43 | disposition home or self-care (01) | LOC: WOUND 12:43 | PROVIDERS: PCP Family Medicine; Visit Provider Nurse Practitioner Family | DX: L89.324 Pressure ulcer of left buttock, stage 4 (principal); G82.50 Quadriplegia, unspecified; Z99.3 Dependence on wheelchair | CPT/HCPCS: 97597 ==

== ENCOUNTER 2025-01-04 12:42 | Outpatient (CLI) | payer MEDICARE, OTHER, SELFPAY | END 2025-01-04 12:43 | disposition home or self-care (01) | LOC: WOUND 12:43 | PROVIDERS: PCP Family Medicine; Visit Provider Nurse Practitioner Family | DX: L89.324 Pressure ulcer of left buttock, stage 4 (principal); G82.50 Quadriplegia, unspecified; Z99.3 Dependence on wheelchair | CPT/HCPCS: 97597 ==

== ENCOUNTER 2025-01-11 12:48 | Outpatient (CLI) | payer MEDICARE, OTHER, SELFPAY | END 2025-01-11 12:49 | disposition home or self-care (01) | LOC: WOUND 12:48 | PROVIDERS: PCP Family Medicine; Visit Provider Nurse Practitioner Family | DX: L89.324 Pressure ulcer of left buttock, stage 4 (principal); G82.50 Quadriplegia, unspecified; Z99.3 Dependence on wheelchair | CPT/HCPCS: 97597 ==

== ENCOUNTER 2025-01-18 12:45 | Outpatient (CLI) | payer MEDICARE, OTHER, SELFPAY | END 2025-01-18 12:46 | disposition home or self-care (01) | LOC: WOUND 12:45 | PROVIDERS: PCP Family Medicine; Visit Provider Nurse Practitioner Family | DX: L89.324 Pressure ulcer of left buttock, stage 4 (principal); G82.50 Quadriplegia, unspecified; Z99.3 Dependence on wheelchair | CPT/HCPCS: 11042 ==

== ENCOUNTER 2025-01-25 12:43 | Outpatient (CLI) | payer MEDICARE, OTHER, SELFPAY | END 2025-01-25 12:44 | disposition home or self-care (01) | LOC: WOUND 12:44 | PROVIDERS: PCP Family Medicine; Visit Provider Nurse Practitioner Family | DX: L89.324 Pressure ulcer of left buttock, stage 4 (principal); G82.50 Quadriplegia, unspecified; Z99.3 Dependence on wheelchair | CPT/HCPCS: 97597 ==

== ENCOUNTER 2025-02-01 12:42 | Outpatient (CLI) | payer MEDICARE, OTHER, SELFPAY | END 2025-02-01 12:43 | disposition home or self-care (01) | LOC: WOUND 12:43 | PROVIDERS: PCP Family Medicine; Visit Provider Nurse Practitioner Family | DX: L89.324 Pressure ulcer of left buttock, stage 4 (principal); G82.50 Quadriplegia, unspecified; Z99.3 Dependence on wheelchair | CPT/HCPCS: 97597 ==

== ENCOUNTER 2025-02-08 12:43 | Outpatient (CLI) | payer MEDICARE, OTHER, SELFPAY | END 2025-02-08 12:44 | disposition home or self-care (01) | LOC: WOUND 12:43 | PROVIDERS: PCP Family Medicine; Visit Provider Nurse Practitioner Family | DX: L89.324 Pressure ulcer of left buttock, stage 4 (principal); M86.68 Other chronic osteomyelitis, other site; E11.622 Type 2 diabetes mellitus with other skin ulcer; G82.50 Quadriplegia, unspecified; Z99.3 Dependence on wheelchair | CPT/HCPCS: 11044 ==

== ENCOUNTER 2025-02-15 12:45 | Outpatient (CLI) | payer MEDICARE, OTHER, SELFPAY | END 2025-02-15 12:46 | disposition home or self-care (01) | LOC: WOUND 12:45 | PROVIDERS: PCP Family Medicine; Visit Provider Physician Assistant Surgical | DX: L89.324 Pressure ulcer of left buttock, stage 4 (principal); G82.50 Quadriplegia, unspecified; Z99.3 Dependence on wheelchair | CPT/HCPCS: 11043 ==

== ENCOUNTER 2025-02-22 12:44 | Outpatient (CLI) | payer MEDICARE, OTHER, SELFPAY | END 2025-02-22 12:45 | disposition home or self-care (01) | LOC: WOUND 12:44 | PROVIDERS: PCP Family Medicine; Visit Provider Physician Assistant Surgical | DX: L89.324 Pressure ulcer of left buttock, stage 4 (principal); M86.68 Other chronic osteomyelitis, other site; G82.50 Quadriplegia, unspecified; Z99.3 Dependence on wheelchair | CPT/HCPCS: 11043 ==

== ENCOUNTER 2025-03-01 13:02 | Outpatient (CLI) | payer MEDICARE, OTHER, SELFPAY | END 2025-03-01 13:03 | disposition home or self-care (01) | LOC: WOUND 13:03 | PROVIDERS: PCP Family Medicine; Visit Provider Physician Assistant Surgical | DX: L89.324 Pressure ulcer of left buttock, stage 4 (principal); M86.68 Other chronic osteomyelitis, other site; G82.50 Quadriplegia, unspecified; Z99.3 Dependence on wheelchair | CPT/HCPCS: 11043 ==

== ENCOUNTER 2025-03-08 12:44 | Outpatient (CLI) | payer MEDICARE, OTHER, SELFPAY | END 2025-03-08 12:45 | disposition home or self-care (01) | LOC: WOUND 12:44 | PROVIDERS: PCP Family Medicine; Visit Provider Physician Assistant Surgical | DX: L89.324 Pressure ulcer of left buttock, stage 4 (principal); E11.622 Type 2 diabetes mellitus with other skin ulcer; G82.50 Quadriplegia, unspecified; Z99.3 Dependence on wheelchair | CPT/HCPCS: 11043 ==

== ENCOUNTER 2025-03-15 12:42 | Outpatient (CLI) | payer MEDICARE, OTHER, SELFPAY | END 2025-03-15 12:43 | disposition home or self-care (01) | LOC: WOUND 12:42 | PROVIDERS: PCP Family Medicine; Visit Provider Physician Assistant Surgical | DX: L89.324 Pressure ulcer of left buttock, stage 4 (principal); M86.68 Other chronic osteomyelitis, other site; G82.50 Quadriplegia, unspecified; Z99.3 Dependence on wheelchair | CPT/HCPCS: 11043 ==

== ENCOUNTER 2025-03-22 12:47 | Outpatient (CLI) | payer MEDICARE, OTHER, SELFPAY | END 2025-03-22 12:48 | disposition home or self-care (01) | LOC: WOUND 12:47 | PROVIDERS: PCP Family Medicine; Visit Provider Physician Assistant Surgical | DX: L89.324 Pressure ulcer of left buttock, stage 4 (principal); M86.68 Other chronic osteomyelitis, other site; G82.50 Quadriplegia, unspecified; Z99.3 Dependence on wheelchair | CPT/HCPCS: 11043 ==

== ENCOUNTER 2025-03-29 12:42 | Outpatient (CLI) | payer MEDICARE, OTHER, SELFPAY | END 2025-03-29 12:43 | disposition home or self-care (01) | LOC: WOUND 12:43 | PROVIDERS: PCP Family Medicine; Visit Provider Nurse Practitioner Family | DX: L89.324 Pressure ulcer of left buttock, stage 4 (principal); M86.68 Other chronic osteomyelitis, other site; G82.50 Quadriplegia, unspecified; Z99.3 Dependence on wheelchair | CPT/HCPCS: 97597 ==

== ENCOUNTER 2025-04-06 12:44 | Outpatient (CLI) | payer MEDICARE, OTHER, SELFPAY | END 2025-04-06 12:45 | disposition home or self-care (01) | LOC: WOUND 12:44 | PROVIDERS: PCP Family Medicine; Visit Provider Physician Assistant Surgical | DX: L89.224 Pressure ulcer of left hip, stage 4 (principal); M86.68 Other chronic osteomyelitis, other site; G82.50 Quadriplegia, unspecified; Z99.3 Dependence on wheelchair | CPT/HCPCS: 97597 ==

== ENCOUNTER 2025-04-12 12:43 | Outpatient (CLI) | payer MEDICARE, OTHER, SELFPAY | END 2025-04-12 12:44 | disposition home or self-care (01) | PROVIDERS: PCP Family Medicine; Visit Provider Physician Assistant Surgical | DX: L89.324 Pressure ulcer of left buttock, stage 4 (principal); M86.68 Other chronic osteomyelitis, other site; G82.50 Quadriplegia, unspecified; Z99.3 Dependence on wheelchair | CPT/HCPCS: 15271; Q4158 ==

== ENCOUNTER 2025-04-19 12:42 | Outpatient (CLI) | payer MEDICARE, OTHER, SELFPAY | END 2025-04-19 12:43 | disposition home or self-care (01) | LOC: WOUND 12:43 | PROVIDERS: PCP Family Medicine; Visit Provider Physician Assistant Surgical | DX: L89.324 Pressure ulcer of left buttock, stage 4 (principal); M86.68 Other chronic osteomyelitis, other site; G82.50 Quadriplegia, unspecified; Z99.3 Dependence on wheelchair | CPT/HCPCS: 11042 ==

== ENCOUNTER 2025-04-26 12:45 | Outpatient (CLI) | payer MEDICARE, OTHER, SELFPAY | END 2025-04-26 12:46 | disposition home or self-care (01) | LOC: WOUND 12:45 | PROVIDERS: PCP Family Medicine; Visit Provider Physician Assistant Surgical | DX: L89.324 Pressure ulcer of left buttock, stage 4 (principal); M86.68 Other chronic osteomyelitis, other site; G82.50 Quadriplegia, unspecified; Z99.3 Dependence on wheelchair | CPT/HCPCS: 15271; Q4158 ==

== ENCOUNTER 2025-05-03 12:46 | Outpatient (CLI) | payer MEDICARE, OTHER, SELFPAY | END 2025-05-03 12:47 | disposition home or self-care (01) | LOC: WOUND 12:46 | PROVIDERS: PCP Family Medicine; Visit Provider Physician Assistant | DX: L89.324 Pressure ulcer of left buttock, stage 4 (principal); M86.68 Other chronic osteomyelitis, other site; G82.50 Quadriplegia, unspecified; Z99.3 Dependence on wheelchair | CPT/HCPCS: 97597 ==

== ENCOUNTER 2025-05-10 12:43 | Outpatient (CLI) | payer MEDICARE, OTHER, SELFPAY | END 2025-05-10 12:44 | disposition home or self-care (01) | LOC: WOUND 12:43 | PROVIDERS: PCP Family Medicine; Visit Provider Physician Assistant | DX: L89.324 Pressure ulcer of left buttock, stage 4 (principal); M86.68 Other chronic osteomyelitis, other site; G82.50 Quadriplegia, unspecified; Z99.3 Dependence on wheelchair | CPT/HCPCS: 15271; 15275; Q4158 ==

== ENCOUNTER 2025-05-17 12:45 | Outpatient (CLI) | payer MEDICARE, OTHER, SELFPAY | END 2025-05-17 12:46 | disposition home or self-care (01) | LOC: WOUND 12:46 | PROVIDERS: PCP Family Medicine; Visit Provider Physician Assistant Surgical | DX: L89.324 Pressure ulcer of left buttock, stage 4 (principal); M86.68 Other chronic osteomyelitis, other site; E11.622 Type 2 diabetes mellitus with other skin ulcer; G82.50 Quadriplegia, unspecified; Z99.3 Dependence on wheelchair | CPT/HCPCS: 11042 ==

== ENCOUNTER 2025-05-24 12:43 | Outpatient (CLI) | payer MEDICARE, OTHER, SELFPAY | END 2025-05-24 12:44 | disposition home or self-care (01) | LOC: WOUND 12:43 | PROVIDERS: PCP Family Medicine; Visit Provider Physician Assistant Surgical | DX: L89.324 Pressure ulcer of left buttock, stage 4 (principal); M86.68 Other chronic osteomyelitis, other site; G82.50 Quadriplegia, unspecified; Z99.3 Dependence on wheelchair | CPT/HCPCS: 11042 ==

== ENCOUNTER 2025-05-31 12:44 | Outpatient (CLI) | payer MEDICARE, OTHER, SELFPAY | END 2025-05-31 12:45 | disposition home or self-care (01) | PROVIDERS: PCP Family Medicine; Visit Provider Physician Assistant | DX: M86.68 Other chronic osteomyelitis, other site (principal); L89.324 Pressure ulcer of left buttock, stage 4; G82.50 Quadriplegia, unspecified; Z99.3 Dependence on wheelchair | CPT/HCPCS: 97597 ==

== ENCOUNTER 2025-06-14 12:43 | Outpatient (CLI) | payer MEDICARE, OTHER, SELFPAY | END 2025-06-14 12:44 | disposition home or self-care (01) | LOC: WOUND 12:44 | PROVIDERS: PCP Family Medicine; Visit Provider Physician Assistant Surgical | DX: M86.68 Other chronic osteomyelitis, other site (principal); L89.324 Pressure ulcer of left buttock, stage 4; G82.50 Quadriplegia, unspecified; Z99.3 Dependence on wheelchair | CPT/HCPCS: 11042 ==

== ENCOUNTER 2025-06-28 12:45 | Outpatient (CLI) | payer MEDICARE, OTHER, SELFPAY | END 2025-06-28 12:46 | disposition home or self-care (01) | LOC: WOUND 12:45 | PROVIDERS: PCP Family Medicine; Visit Provider Physician Assistant | DX: L89.324 Pressure ulcer of left buttock, stage 4 (principal); M86.68 Other chronic osteomyelitis, other site; G82.50 Quadriplegia, unspecified; Z99.3 Dependence on wheelchair; E11.9 Type 2 diabetes mellitus without complications | CPT/HCPCS: 97597 ==

== ENCOUNTER 2025-07-26 12:45 | Outpatient (CLI) | payer MEDICARE, OTHER, SELFPAY | END 2025-07-26 12:46 | disposition home or self-care (01) | LOC: WOUND 12:45 | PROVIDERS: PCP Family Medicine; Visit Provider Physician Assistant Surgical | DX: L89.324 Pressure ulcer of left buttock, stage 4 (principal); M86.68 Other chronic osteomyelitis, other site; Z93.3 Colostomy status; G82.50 Quadriplegia, unspecified; E11.9 Type 2 diabetes mellitus without complications; Z99.3 Dependence on wheelchair | CPT/HCPCS: 11042 ==

== ENCOUNTER 2025-08-09 12:43 | Outpatient (CLI) | payer MEDICARE, OTHER, SELFPAY | END 2025-08-09 12:44 | disposition home or self-care (01) | LOC: WOUND 12:44 | PROVIDERS: PCP Family Medicine; Visit Provider Physician Assistant Surgical | DX: L89.324 Pressure ulcer of left buttock, stage 4 (principal); M86.68 Other chronic osteomyelitis, other site; G82.50 Quadriplegia, unspecified; E11.9 Type 2 diabetes mellitus without complications; Z93.3 Colostomy status | CPT/HCPCS: 11042 ==

== ENCOUNTER 2025-08-23 12:43 | Outpatient (CLI) | payer MEDICARE, OTHER, SELFPAY | END 2025-08-23 12:44 | disposition home or self-care (01) | LOC: WOUND 12:44 | PROVIDERS: PCP Family Medicine; Visit Provider Family Medicine | DX: L89.324 Pressure ulcer of left buttock, stage 4 (principal); M86.68 Other chronic osteomyelitis, other site; G82.50 Quadriplegia, unspecified; E11.9 Type 2 diabetes mellitus without complications; Z93.3 Colostomy status | CPT/HCPCS: 11042 ==

== ENCOUNTER 2025-09-06 12:44 | Outpatient (CLI) | payer MEDICARE, OTHER, SELFPAY | END 2025-09-06 12:45 | disposition home or self-care (01) | LOC: WOUND 12:45 | PROVIDERS: PCP Family Medicine; Visit Provider Physician Assistant Surgical | DX: L89.324 Pressure ulcer of left buttock, stage 4 (principal); M86.68 Other chronic osteomyelitis, other site; G82.50 Quadriplegia, unspecified; E11.9 Type 2 diabetes mellitus without complications; Z93.3 Colostomy status | CPT/HCPCS: 11043 ==

== ENCOUNTER 2025-09-20 12:44 | Outpatient (CLI) | payer MEDICARE, OTHER, SELFPAY | END 2025-09-20 12:45 | disposition home or self-care (01) | LOC: WOUND 12:45 | PROVIDERS: PCP Family Medicine; Visit Provider Physician Assistant Surgical | DX: L89.324 Pressure ulcer of left buttock, stage 4 (principal); M86.68 Other chronic osteomyelitis, other site; G82.50 Quadriplegia, unspecified; E11.9 Type 2 diabetes mellitus without complications; Z93.3 Colostomy status | CPT/HCPCS: 11043 ==

== ENCOUNTER 2025-10-04 12:52 | Outpatient (CLI) | payer MEDICARE, OTHER, SELFPAY | END 2025-10-04 12:53 | disposition home or self-care (01) | LOC: WOUND 12:53 | PROVIDERS: PCP Family Medicine; Visit Provider Nurse Practitioner Family | DX: L89.324 Pressure ulcer of left buttock, stage 4 (principal); M86.68 Other chronic osteomyelitis, other site; G82.50 Quadriplegia, unspecified; Z99.3 Dependence on wheelchair; E11.9 Type 2 diabetes mellitus without complications | CPT/HCPCS: 11043 ==